=== PATIENT | female | born 1975 | race Caucasian/White ===

== ENCOUNTER 2022-07-03 11:53 | Emergency (ER) | payer OTHER, SELFPAY ==
[2022-07-03] VITALS (11 sets, daily range): BP systolic 111–172; BP diastolic 68–81; PULSE 65–93; RESP 16–18; TEMP 36.8; O2SAT 98–100; BMI 25.1
--- NOTE | 2022-07-03 12:55 | ED.GENADULT ---
HPI - General Adult General Time Seen by Provider: 12:56 Date Seen: 07/03/22 Chief complaint: Abdominal Pain Stated complaint: right sided abdominal pain/fever Time Seen by Provider: 07/03/22 12:39 Source: patient and RN notes reviewed Mode of arrival: ambulatory Limitations: no limitations History of Present Illness HPI narrative: Patient is a 46-year-old female coming in with right lower quadrant abdominal pain starting about 830 this morning. Her appetite was diminished today. She thought maybe she was having discomfort because she had an 8 none had a banana about 10:00 a.m.. Pain is intensified nose worsening. No vomiting but is starting to get nauseated. No bowel changes such as diarrhea or constipation, no urinary changes. She is status post hysterectomy about 20 years ago per report. She reported a fever at home. Again symptoms started this morning. She has had her gallbladder out about 2 years ago and the hysterectomy, otherwise denies any other abdominal surgery. Has not been sick with any cough or cold symptoms. Movement and walking are increasing her pain. Related Data Home Medications Medication Instructions Recorded Confirmed fluticasone furoate 200 inhalation 07/03/22 mcg-vilanterol 25 mcg/dose inhalation powder (Breo Ellipta) prednisone 20 mg tablet mg 07/03/22 trazodone 100 mg tablet mg 07/03/22 Previous Rx's Medication Instructions Recorded ketorolac 10 mg tablet 10 mg PO Q6H PRN pain 5 days #20 07/03/22 tabs tramadol 50 mg tablet 50 mg PO Q6H PRN pain #10 tabs 07/03/22 Allergies Allergy/AdvReac Type Severity Reaction Status Date / Time erythromycin base Allergy Verified 07/03/22 12:23 Review of Systems Status of ROS: Reports: 10 or more systems reviewed and unremarkable except as noted in History and below PFSH PFS Social History Smoking Status: Never smoker Do you use any of these nicotine containing products: None Second hand tobacco smoke exposure: No How often do you have a drink containing alcohol: monthly or less How many standard drinks containing alcohol do you have on a typical day: 1 or 2 How often do you have six or more drinks on one occasion: Never AUDIT-C Alcohol total score: 1 Non-prescribed substance use: denies use service: No Exam Const: Vital Signs, click to edit/add: Vital Signs - 24 hr 07/03/22 12:19 07/03/22 13:24 07/03/22 13:58 Temperature 98.3 F Pulse Rate [Left P ulse Oximeter] 93 72 71 Respiratory Rate 16 18 16 Blood Pressure [Le ft Upper Arm] 172/81 H 140/80 H 130/74 Pulse Oximetry 99 99 98 Oxygen Delivery Me thod Room Air Room Air 07/03/22 13:15 Temperature Pulse Rate [Left P ulse Oximeter] Respiratory Rate Blood Pressure [Le ft Upper Arm] Pulse Oximetry 99 Oxygen Delivery Me thod Documenting provider has reviewed patient's vital signs: yes Common normals: no apparent distress (But looks like she does not feel well), average body habitus, oriented x3, no limitations, healthy appearing, alert and well nourished General appearance: cooperative and well kempt HENMT: Common normals: normocephalic, head/scalp atraumatic and hearing grossly normal bilaterally Head and scalp: normocephalic and atraumatic Eye: Common normals: PERRL, EOMs intact bilaterally, conjunctivae normal and no scleral icterus Conjunctiva: conjunctiva(e) normal Pupil: PERRL Neck & C-Spine: Common normals: full ROM, no lymphadenopathy, supple, no meningeal signs, no JVD and thyroid normal Thyroid: thyroid normal Resp: Common normals: normal respiratory effort, no retractions, no use of accessory muscles and clear to auscultation bilaterally Auscultation: clear to auscultation bilaterally Cardio: Common normals: no JVD, regular rate, regular rhythm, S1 normal heart sound, S2 normal heart sound, no gallops, no clicks and no murmurs Rate: regular rate Rhythm: regular rhythm Heart sounds: S1 normal and S2 normal GI: Common normals: Normal to inspection, nondistended, normoactive bowel sounds present, soft to palpation, no hepatosplenomegaly and no masses Palpation: soft and no hepatosplenomegaly Other: Is definitely tender right mid abdomen to right lower quadrant. I would say that she does not have rebound or guarding at this time but definitely is tender. Extremity: Common normals: normal to inspection, full ROM, normal capillary refill, no joint enlargement, no clubbing, cyanosis or edema, no calf tenderness and no pedal edema Neuro: Common normals: oriented x3 Sensorium/orientation: alert Meningeal signs: no meningeal signs Psych: Appearance: well kempt Course Course Hospital Course: Will establish an IV, start with 15 mg IV Toradol, IV fluids and 4 mg IV Zofran to see if we can give her some comfort from her symptoms. I have asked her to be NPO. Will be getting appropriate labs an abdomen pelvis CT. Certainly appendicitis is in the differential but there are other possible etiologies which will help be delineated between the labs and the imaging. Reevaluation(s) Reevaluation #1: Reviewed with patient her CT is not showing any evidence of any appendicitis. She does have some asymptomatic bilateral inguinal fat containing hernias. This could be followed up outpatient is this is not the cause of her symptoms but she should be aware that she has this. She does have ovarian cysts and probable right hydrosalpinx. We are going to proceed with an ultrasound. She is feeling better with the Toradol on board. Time: 14:34 Reevaluation #2: Reviewed ultrasound findings with patient. Did discuss the findings with Dr. Houston. She agrees with outpatient follow-up and they will order further imaging when appropriate. Patient states the pain is starting to come back. We have discussed sending her baseline with Toradol but also with a script of tramadol if she needs something stronger. Did advise her she can take Tylenol with all of these. She remembers before her hysterectomy she had had a tubal ligation done. Not sure if this could be contributing to what they see as the right hydrosalpinx but I do wonder if it is actually postsurgical finding. Time: 16:45 Vital Signs Vital signs: Initial Vital Signs Temperature 98.3 F 07/03/22 12:19 Temperature Source Temporal Artery Scan 07/03/22 12:19 Pulse Rate 93 07/03/22 12:19 Pulse Rhythm 07/03/22 12:19 Pulse Strength 3+ Normal 07/03/22 12:19 Respiratory Rate 16 07/03/22 12:19 Blood Pressure 172/81 H 07/03/22 12:19 Blood Pressure Mean 111 07/03/22 12:19 Blood Pressure Position Sitting 07/03/22 12:19 Pulse Oximetry 99 07/03/22 12:19 Oxygen Delivery Method 07/03/22 12:19 Vital Signs Temperature 98.3 F 07/03/22 12:19 Pulse Rate 93 07/03/22 12:19 Respiratory Rate 16 07/03/22 12:19 Blood Pressure 172/81 H 07/03/22 12:19 Pulse Oximetry 99 07/03/22 12:19 Oxygen Delivery Method 07/03/22 12:19 Temperature 98.3 F 07/03/22 12:19 Pulse Rate 71 07/03/22 13:58 Respiratory Rate 16 07/03/22 13:58 Blood Pressure 130/74 07/03/22 13:58 Pulse Oximetry 98 07/03/22 13:58 Oxygen Delivery Method 07/03/22 13:24 Medical Decision Making Lab Data Lab results reviewed: Yes I reviewed the patient's lab results Labs: Lab Results 07/03/22 07/03/22 07/03/22 Range/Units 12:59 13:10 13:10 WBC 9.56 (4.50-11.00) K/uL RBC 4.74 (4.00-5.20) m/uL Hgb 14.5 (12.0-16.0) gm/dL Hct 43.6 (33.0-51.0) % MCV 92 (80-100) fL MCH 31 (26-34) pg MCHC 33 (32-36) gm/dL RDW Coeff of [place]ár[place] 11.8 (11.5-15.5) % Plt Count 190 (140-440) K/uL Neut % (Auto) 67.3 (42.0-72.0) % Lymph % (Auto) 24.3 (20-44) % [place] % (Auto) 5.6 (0.0-11.0) % Eos % (Auto) 1.9 (0.0-7.0) % Baso % (Auto) 0.3 (0.0-3.0) % Neut # (Auto) 6.43 (1.7-7.0) K/uL Lymph # (Auto) 2.32 (0.90-2.90) K/uL [place] # (Auto) 0.50 (0.00-0.90) K/UL Eos # (Auto) 0.18 (0.00-0.50) K/uL Baso # (Auto) 0.03 (0.00-0.30) K/uL Abs Immat Gran (auto) 0.06 (0.00-0.30) K/uL Sodium 136 (135-149) mmol/L Potassium 3.7 (3.6-5.1) mmol/L Chloride 102 (96-114) mmol/L Carbon Dioxide 27 (20-32) mmol/L BUN 11 (5-24) mg/dL Creatinine 0.7 (0.5-1.5) mg/dL Estimated Creat Clear 102.38 Estimated GFR 109 ml/min Glucose 89 (60-115) mg/dL Lactate (0.5-1.9) mmol/L Calcium 9.4 (8.4-10.6) mg/dL Total Bilirubin 1.4 (0.1-1.5) mg/dL AST 20 (12-35) U/L ALT 12 (4-35) U/L Alkaline Phosphatase 68 (40-150) U/L C-Reactive Protein 1.0 (0.5-1.0) mg/dL Total Protein 7.5 (6.0-8.3) g/dL Albumin 4.4 (3.3-5.0) g/dL Lipase (23-300) U/L Urine Color Yellow (Yellow) Urine Appearance Clear (Clear) Urine pH 7.0 (5.0-8.5) Ur Specific [place] 1.015 (1.000-1.030) Urine Protein Negative (Negative) Urine Glucose (UA) Negative (Negative) Urine Ketones Negative (Negative) Urine Blood Trace-intact A (Negative) Urine Nitrite Negative (Negative) Urine Bilirubin Negative (Negative) Urine Urobilinogen 0.2 (0.2-1.0) Ur Leukocyte Esterase Negative (Negative) Urine RBC 0-2 (0-2) Urine WBC 0-2 (0-5) Ur Squamous Epith Cells Few (None-Few) Urine Bacteria None (None) SARS-CoV-2 (PCR) (Negative) 07/03/22 07/03/22 07/03/22 Range/Units 13:10 13:10 13:12 WBC (4.50-11.00) K/uL RBC (4.00-5.20) m/uL Hgb (12.0-16.0) gm/dL Hct (33.0-51.0) % MCV (80-100) fL MCH (26-34) pg MCHC (32-36) gm/dL RDW Coeff of [place]ár[place] (11.5-15.5) % Plt Count (140-440) K/uL Neut % (Auto) (42.0-72.0) % Lymph % (Auto) (20-44) % [place] % (Auto) (0.0-11.0) % Eos % (Auto) (0.0-7.0) % Baso % (Auto) (0.0-3.0) % Neut # (Auto) (1.7-7.0) K/uL Lymph # (Auto) (0.90-2.90) K/uL [place] # (Auto) (0.00-0.90) K/UL Eos # (Auto) (0.00-0.50) K/uL Baso # (Auto) (0.00-0.30) K/uL Abs Immat Gran (auto) (0.00-0.30) K/uL Sodium (135-149) mmol/L Potassium (3.6-5.1) mmol/L Chloride (96-114) mmol/L Carbon Dioxide (20-32) mmol/L BUN (5-24) mg/dL Creatinine (0.5-1.5) mg/dL Estimated Creat Clear Estimated GFR ml/min Glucose (60-115) mg/dL Lactate 1.0 (0.5-1.9) mmol/L Calcium (8.4-10.6) mg/dL Total Bilirubin (0.1-1.5) mg/dL AST (12-35) U/L ALT (4-35) U/L Alkaline Phosphatase (40-150) U/L C-Reactive Protein (0.5-1.0) mg/dL Total Protein (6.0-8.3) g/dL Albumin (3.3-5.0) g/dL Lipase 38 (23-300) U/L Urine Color (Yellow) Urine Appearance (Clear) Urine pH (5.0-8.5) Ur Specific [place] (1.000-1.030) Urine Protein (Negative) Urine Glucose (UA) (Negative) Urine Ketones (Negative) Urine Blood (Negative) Urine Nitrite (Negative) Urine Bilirubin (Negative) Urine Urobilinogen (0.2-1.0) Ur Leukocyte Esterase (Negative) Urine RBC (0-2) Urine WBC (0-5) Ur Squamous Epith Cells (None-Few) Urine Bacteria (None) SARS-CoV-2 (PCR) Negative SARS-CoV-2 (Negative) Imaging Data CT scan - abdomen: Attestation: I have reviewed the pertinent imaging results. Radiologist's impression: Patient: CHRISTOPHER TY Facility:?[facility] Patient ID:?[id number] Site Patient ID:?[id number]. Site :?[id number] Study:?CT Abdomen/Pelvis 80CC ISOVUE 370-07/03/2022 1:58:35 PM Ordering Physician:?Florencio Rico Final Report: INDICATION: Right lower quadrant pain. TECHNIQUE: CT abdomen and pelvis acquired with 80 mL Isovue 370 IV contrast. Coronal and sagittal reformats were generated. COMPARISON: CT of the abdomen and pelvis from 11/01/2020. FINDINGS: Lower chest: Areas of geographic lucency in the right lower lobe is stable from prior, and likely related to chronic change. Liver: Unremarkable. Gallbladder and bile ducts: Surgically absent gallbladder. Normal caliber bile ducts. Spleen: Unremarkable. Pancreas: Unremarkable. Adrenal glands: Unremarkable. No nodules. Kidneys and Ureters: Unremarkable. No suspicious masses, stones, or hydronephrosis. Cortical hypodensity in the right kidney is suggestive of a cyst. Lymph Nodes and Retroperitoneum: Unremarkable. Vasculature: Unremarkable. GI tract: Unremarkable. Normal in caliber. Large volume of colonic stool can be seen with constipation. The appendix is not seen, but there are no inflammatory changes in the right lower quadrant to suggest appendicitis. Peritoneum/Abdominal Wall: Unremarkable. No mass or infiltration. No free air or free fluid. Fat containing inguinal hernias bilaterally. Pelvic Viscera: Surgically absent uterus. Multiple bilateral adnexal cystic lesions are likely ovarian. Ovoid tubular structure in the right adnexum is suggestive of hydrosalpinx, increased from prior. Bladder: Unremarkable. Bones: Unremarkable for age. IMPRESSION: 1. New bilateral ovarian cystic lesions, likely dominant follicles or cysts. 2. Enlarging tubular fluid density structure in the right adnexum, likely hydrosalpinx. This could be the source of right lower quadrant pain and would be best evaluated with pelvic ultrasound. 3. No other significant CT abnormalities in the abdomen or pelvis. Please note that all CT scans at this facility use dose modulation, iterative reconstruction, and/or weight-based dosing when appropriate to reduce radiation dose to as low as reasonably achievable. Dictated by Matias Gray MD @ 07/03/2022 2:08:43 PM (Electronic Signature) US - abdomen: Attestation: I have reviewed the pertinent imaging results. Radiologist's impression: Patient: CHRISTOPHER TY Facility:?[facility] Patient ID:?[id number] Site Patient ID:?[id number]. Site :?[id number] Study:?US Pelvis TA/TV-07/03/2022 3:24:04 PM Ordering Physician:?Florencio Rico Final Report: INDICATION: Ovarian cystic masses. Abnormal CT exam. TECHNIQUE: Ultrasound pelvis transabdominal and transvaginal for better assessment or to better visualize the endometrium. Real-time sonographic images with spectral and color Doppler imaging of the ovaries were obtained. COMPARISON: CT abdomen pelvis July 03, 2022. FINDINGS: Post hysterectomy. Right ovary 4 x 3 x 3. Left ovary 4 x 3 x 3. Complex cystic lesions are present in both ovaries. Each ovary contains a 2.5 cm debris-filled cyst. Hydrosalpinx suspected in the right adnexa. Normal arterial and venous blood flow is demonstrated in both ovaries. Cul-de-sac: No significant free fluid. IMPRESSION: Bilateral ovarian 2.5 cm hemorrhagic cysts or endometriomas favored over neoplasms. Right adnexal hydrosalpinx also suggested. No convincing evidence for pelvic inflammatory disease. Gynecology consultation is recommended for management of these findings. From an imaging standpoint, these lesions could be further evaluated with a repeat ultrasound in 6-12 weeks or MRI. Dictated by Herman Desir MD @ 07/03/2022 3:46:49 PM (Electronic Signature) Critical Care Time Critical Care Time Critical Care Time: No Discharge Plan Discharge Clinical Impression: Hydrosalpinx, Hemorrhagic cysts of both ovaries Condition: Stable Instructions: Ovarian Cyst (ED) Additional Instructions: Take Tylenol baseline for pain, follow bottle directions for dosing. Have written for Toradol to be used next in pain management, follow-up prescription. If pain is severe, can use the tramadol as prescribed. No driving or operating machinery while on this. [facility] get [facility]. She did develop severe abdominal pain not controlled with the outlined medicines, have fever vomiting with this, do need to be re-evaluated. Activity Level: Activity as Tolerated Prescriptions: New ketorolac 10 mg tablet 10 mg PO Q6H PRN (Reason: pain) 5 Days Qty: 20 0RF tramadol 50 mg tablet 50 mg PO Q6H PRN (Reason: pain) Qty: 10 0RF No Action prednisone 20 mg tablet trazodone 100 mg tablet fluticasone furoate-vilanterol [Breo Ellipta] 200-25 mcg/dose blister with device INHALATION Label Comments: INHALE 1 PUFF BY MOUTH EVERY DAY Follow Up/Referrals: Keira Irvin MD [Primary Care Provider] - Stand Alone Forms: [facility] Imaging Info Instructions
--- NOTE | 2022-07-03 12:58 | CRLHL7_ITS ---
For Patients: As a result of the Century Cures Act, medical imaging exams and procedure reports are released immediately into your electronic medical record. You may view this report before your referring provider. If you have questions, please contact your health care provider. INDICATION: Right lower quadrant pain. TECHNIQUE: CT abdomen and pelvis acquired with 80 mL Isovue 370 IV contrast. Coronal and sagittal reformats were generated. COMPARISON: CT of the abdomen and pelvis from 11/01/2020. FINDINGS: Lower chest: Areas of geographic lucency in the right lower lobe is stable from prior, and likely related to chronic change. Liver: Unremarkable. Gallbladder and bile ducts: Surgically absent gallbladder. Normal caliber bile ducts. Spleen: Unremarkable. Pancreas: Unremarkable. Adrenal glands: Unremarkable. No nodules. Kidneys and Ureters: Unremarkable. No suspicious masses, stones, or hydronephrosis. Cortical hypodensity in the right kidney is suggestive of a cyst. Lymph Nodes and Retroperitoneum: Unremarkable. Vasculature: Unremarkable. GI tract: Unremarkable. Normal in caliber. Large volume of colonic stool can be seen with constipation. The appendix is not seen, but there are no inflammatory changes in the right lower quadrant to suggest appendicitis. Peritoneum/Abdominal Wall: Unremarkable. No mass or infiltration. No free air or free fluid. Fat containing inguinal hernias bilaterally. Pelvic Viscera: Surgically absent uterus. Multiple bilateral adnexal cystic lesions are likely ovarian. Ovoid tubular structure in the right adnexum is suggestive of hydrosalpinx, increased from prior. Bladder: Unremarkable. Bones: Unremarkable for age. IMPRESSION: 1. New bilateral ovarian cystic lesions, likely dominant follicles or cysts. 2. Enlarging tubular fluid density structure in the right adnexum, likely hydrosalpinx. This could be the source of right lower quadrant pain and would be best evaluated with pelvic ultrasound. 3. No other significant CT abnormalities in the abdomen or pelvis. Please note that all CT scans at this facility use dose modulation, iterative reconstruction, and/or weight-based dosing when appropriate to reduce radiation dose to as low as reasonably achievable. Dictated by Matias Gray MD @ 07/03/2022 2:08:43 PM (Electronically Signed)
[2022-07-03 13:28] LABS: Basophils Absolute Auto 0.03 K/uL (0.00-0.30); Basophils Percent Auto 0.3 % (0.0-3.0); Eosinophils Absolute Auto 0.18 K/uL (0.00-0.50); Eosinophils Percent Auto 1.9 % (0.0-7.0); Hematocrit 43.6 % (33.0-51.0); Hemoglobin* 14.5 gm/dL (12.0-16.0); Immature Granulocytes Abs Auto 0.06 K/uL (0.00-0.30); Lymphocytes Absolute Auto 2.32 K/uL (0.90-2.90); Lymphocytes Percent Auto 24.3 % (20-44); Mean Corpuscular HGB Conc 33 gm/dL (32-36); Mean Corpuscular Hemoglobin 31 pg (26-34); Mean Corpuscular Volume 92 fL (80-100); Monocytes Percent Auto 5.6 % (0.0-11.0); Neutrophils Absolute Auto 6.43 K/uL (1.7-7.0); Neutrophils Percent Auto 67.3 % (42.0-72.0); Platelet Count* 190 K/uL (140-440); RDW Coefficient of Variation % 11.8 % (11.5-15.5); Red Blood Count 4.74 m/uL (4.00-5.20); White Blood Count* 9.56 K/uL (4.50-11.00)
[2022-07-03] MEDS: ONDANSETRON 2 MG/ML inj 4 MG IVP (13:29)
[2022-07-03] MEDS: 0.9 % SODIUM CHLORIDE 1000 ml 1,000 ML 500 ML IV (13:29)
[2022-07-03] MEDS: KETOROLAC 15 MG/ML inj IVP (13:29)
[2022-07-03 13:31] LABS: Appearance Urine Clear (Clear); Bilirubin Urine Negative (Negative); Blood Urine Trace-intact (Negative); Color Urine Yellow (Yellow); Glucose Urine Negative (Negative); Ketones Urine Negative (Negative); Leukocyte Esterase Urine Negative (Negative); Nitrite Urine Negative (Negative); Protein Urine Negative (Negative); Specific Gravity Urine 1.015 (1.000-1.030); Urobilinogen Urine 0.2 (0.2-1.0)
[2022-07-03 13:38] LABS: Slide Review Reflex No
--- NOTE | 2022-07-03 13:41 | ED.NURSE ---
Pt to imaging.
[2022-07-03 13:43] LABS: RBC Urine 0-2 (0-2); Squamous Epithelial Cell Urine Few (None-Few); WBC Urine 0-2 (0-5)
[2022-07-03 13:49] LABS: Lipase* 38 U/L (23-300)
[2022-07-03 14:16] LABS: SARS PCR* Negative SARS-CoV-2 (Negative)
--- NOTE | 2022-07-03 14:27 | CRLHL7_ITS ---
For Patients: As a result of the Century Cures Act, medical imaging exams and procedure reports are released immediately into your electronic medical record. You may view this report before your referring provider. If you have questions, please contact your health care provider. INDICATION: Ovarian cystic masses. Abnormal CT exam. TECHNIQUE: Ultrasound pelvis transabdominal and transvaginal for better assessment or to better visualize the endometrium. Real-time sonographic images with spectral and color Doppler imaging of the ovaries were obtained. COMPARISON: CT abdomen pelvis July 03, 2022. FINDINGS: Post hysterectomy. Right ovary 4 x 3 x 3. Left ovary 4 x 3 x 3. Complex cystic lesions are present in both ovaries. Each ovary contains a 2.5 cm debris-filled cyst. Hydrosalpinx suspected in the right adnexa. Normal arterial and venous blood flow is demonstrated in both ovaries. Cul-de-sac: No significant free fluid. IMPRESSION: Bilateral ovarian 2.5 cm hemorrhagic cysts or endometriomas favored over neoplasms. Right adnexal hydrosalpinx also suggested. No convincing evidence for pelvic inflammatory disease. Gynecology consultation is recommended for management of these findings. From an imaging standpoint, these lesions could be further evaluated with a repeat ultrasound in 6-12 weeks or MRI. Dictated by Herman Desir MD @ 07/03/2022 3:46:49 PM (Electronically Signed)
[2022-07-03 14:44] LABS: Albumin* 4.4 g/dL (3.3-5.0); Aspartate Amino Transferase* 20 U/L (12-35); Bilirubin Total* 1.4 mg/dL (0.1-1.5); Blood Urea Nitrogen* 11 mg/dL (5-24); Calcium* 9.4 mg/dL (8.4-10.6); Carbon Dioxide* 27 mmol/L (20-32); Chloride* 102 mmol/L (96-114); Creatinine* 0.7 mg/dL (0.5-1.5); Est. Creatinine Clearance* 102.38; Estimated Glomerular Filt Rate 109 ml/min; Glucose* 89 mg/dL (60-115); Potassium* 3.7 mmol/L (3.6-5.1); Sodium* 136 mmol/L (135-149); Total Protein* 7.5 g/dL (6.0-8.3)
[2022-07-03 14:45] LABS: Alanine Aminotransferase* 12 U/L (4-35); Alkaline Phosphatase* 68 U/L (40-150)
== END 2022-07-03 17:15 | disposition home or self-care (01) ==
PROVIDERS: Emergency Provider Family Medicine; PCP Family Medicine
DX: N70.11 Chronic salpingitis (principal); N83.291 Other ovarian cyst, right side
CPT/HCPCS: 36415; 74177; 76830; 76856; 80053; 81001; 83605; 83690; 85025; 86140; 87635; 93976; 94761; 96374; 96375; 99284; 99285; J1885; J2405; J7030; Q9967

== ENCOUNTER 2022-08-23 06:16 | Day surgery (SDC) | payer OTHER, SELFPAY ==
[2022-08-23] VITALS (28 sets, daily range): BP systolic 109–145; BP diastolic 50–76; PULSE 61–103; RESP 16–20; TEMP 36.1–37; O2SAT 80–100; BMI 24.6
[2022-08-23] MEDS: SCOPOLAMINE 1 MG/3 DAY PATCH 1 PATCH TRANSDERMA (07:00)
[2022-08-23 07:10] LABS: Ur HCG Qualitative* Negative (Negative)
[2022-08-23] MEDS: SODIUM CHLORIDE 0.9 % (FLUSH) 10 ML SYRINGE IVF (07:10)
[2022-08-23] MEDS: LACTATED RINGERS 1000 ML 1,000 ML 100 ML IV ×2 (07:10→09:20)
--- NOTE | 2022-08-23 07:14 | SUR.PREOP ---
Negative home antigen test done- 08/23/22
[2022-08-23] MEDS: BUPIVACAINE 0.25% 30 ML INJECTION (08:16)
--- NOTE | 2022-08-23 09:02 | W.ANESCHARGE ---
Anesthesia Charges Start Date/Time Anesthesia Start Date: 08/23/22 Anesthesia Start Time: 07:37 Stop Date/Time Anesthesia Stop Date: 08/23/22 Anesthesia Stop Time: 09:01 Summary Emergency: No
[2022-08-23] MEDS: fentaNYL 100 MCG/2 ML inj 50 MCG IVP (09:10)
--- NOTE | 2022-08-23 09:29 | W.PM.GYNPROC ---
Procedure Note Date Seen: 08/23/22 Procedure Details: PREOPERATIVE DIAGNOSIS: Pelvic pain Ovarian cyst Suspected hydrosalpinx POSTOPERATIVE DIAGNOSIS: Left ovarian cyst Right hydrosalpinx Pelvic adhesion PROCEDURE: Laparoscopic left salpingo-oophorectomy, right salpingectomy SURGEON: Milli Houston MD ASSISTANT MANAGER TRAINEE: Ernestina Naranjo MD ANESTHESIA: General IV FLUIDS: 1000 mL crystalloid URINE OUTPUT: 100 mL EBL: 5 mL FINDINGS: 1. Upon pelvic exam under anesthesia, the vagina was normal in appearance. Uterus was surgically absent. There were no palpable adnexal masses. 2. Upon laparoscopy, survey of the upper abdomen revealed a slightly scarred appearance to the right liver. There was a normal appearance to the inferior edge gallbladder and stomach. Bowels were grossly normal appearance. Appendix was normal in appearance but the tip was adherent to the right hydrosalpinx. The right ovary was normal in appearance, but the right tube was markedly dilated and distorted, with multiple loculations of fluid, adherent to the pelvic sidewall and the remnants of the right round ligament. The left ovary exhibited a simple cyst approximately 3 cm in greatest dimension, which was found to contain clear fluid. The left tube was normal in appearance. There was a small omental adhesion to the left anterior pelvic wall. Uterus was surgically absent. The cul-de-sac and bladder reflection were normal in appearance. COMPLICATIONS: None PROCEDURE IN DETAIL: Patient was taken to the operating room with IV running. She was positioned in dorsal lithotomy position with her legs fully supported in Yellofin stirrups. General anesthesia was administered. She was prepped and draped in the usual sterile fashion. Bimanual exam was performed for the above-noted findings. Sponge stick was placed in patient's vagina. Pantoja catheter was placed. Patient's legs were placed in neutral position. Attention was turned to patient's abdomen. The infraumbilical area was infiltrated with small amount of Marcaine. An infraumbilical incision was made with a scalpel and carried through to the underlying layer of fascia with a hemostat. The 5 mm Fios Kii trocar was assembled with laparoscope within, and insufflator attached. While tenting up the abdomen manually, the trocar was passed through the anterior abdominal wall into the peritoneal cavity. Trocar was removed. Pneumoperitoneum was achieved. Survey of abdomen and pelvis revealed the above-noted findings. Three additional port sites were created. The 1st was in the patient's left lower quadrant, just superior medial to the left ASIS. The 2nd was a hand's breath superior to and slightly medial to the 1st. The 3rd was in the patient's right lower quadrant, just superior medial to the right ASIS. Each was infiltrated with small amount of Marcaine prior to incision. A 5 mm incision was made at each site, making sure the large vessels were out of harm's way. A 5 mm Fios Kii port was inserted at each site, under direct visualization and without complication. The balloon on each of the 4 ports was inflated, holding each in place. Later in the procedure, the 5 mm port in the left lower quadrant was replaced with an 11 mm port, given the need to use an Endo-Catch bag for the specimens. The dilated and distorted right fallopian tube was held away from the pelvic sidewall. The periappendiceal fat was adherent to the right hydrosalpinx. This fat was dissected away from the tube sharply. Hemostasis was noted. The right fallopian tube was then divided from the adjacent normal right ovary with Thunderbeat device. Dissection was carried medially to laterally, the tube from adhesions to the pelvic sidewall, and ultimately freeing the specimen with the Thunderbeat. This was placed in the pelvis for later retrieval. Hemostasis was noted. Attention was then turned to the left tube and ovary. The ovary was held away from the left pelvic sidewall, and the infundibulopelvic ligament was cauterized and transected with the Thunderbeat device. Dissection was carried laterally to medially, through adhesions connecting the ovary and tube to the pelvic sidewall, until the remnant of the round ligament was reached. The specimen was freed from the pelvic sidewall with a Thunderbeat and was placed in the pelvis for later retrieval. An Endo-Catch bag was inserted through the left lower quadrant port site. The bag was deployed and specimens were placed within the bag. Bag was cinched and brought up to the anterior abdominal wall. The 11 mm port was removed. The bag was brought through the anterior abdominal wall, during which time the left ovarian cyst ruptured, spilling clear fluid. Ilya-Kaveh device was used to close the fascia at the left lower quadrant port site with a single stitch of 0 Vicryl. All instruments were removed from the ports. The balloons on the remaining port sites were deflated, and pneumoperitoneum was released. The ports were removed. The subcuticular tissues of the port sites were treated with Bovie electric cautery were bleeding vessels were noted. The skin of each port site was closed with a subcuticular stitch of 4-0 Vicryl. Surgical glue was applied above this. Sponge stick was removed from the patient's vagina, and a Pantoja catheter was removed as well. Patient tolerated procedure well and was taken to recovery area in stable condition
[2022-08-23] MEDS: OXYCODONE 5 MG TABLET PO (10:09)
--- NOTE | 2022-08-23 10:13 | W.ANESCHARGE ---
Anesthesia Charges Start Date/Time Anesthesia Start Date: 08/23/22 Anesthesia Start Time: 07:37 Stop Date/Time Anesthesia Stop Date: 08/23/22 Anesthesia Stop Time: 09:01 Summary Emergency: No
[2022-08-23] MEDS: ACETAMINOPHEN 500 MG TABLET 1000 MG PO (10:39)
[2022-08-23] MEDS: hydrOXYzine pamoate 25 MG CAPSULE PO (11:59)
== END 2022-08-23 12:04 | disposition home or self-care (01) ==
PROVIDERS: Anesthesiology; PCP Family Medicine; Visit Provider Obstetrics & Gynecology
PROC: (CPT 58661; principal; 2022-08-23 07:30)
DX: R10.2 Pelvic and perineal pain (principal); N83.292 Other ovarian cyst, left side; N70.11 Chronic salpingitis; N73.6 Female pelvic peritoneal adhesions (postinfective)
CPT/HCPCS: 58661; 00840; 00851; 36415; 81025; 86850; 86900; 86901; 88305; A9270; J0330; J1100; J1885; J2250; J2405; J2704; J2710; J3010; J3490; J7120

== ENCOUNTER 2022-08-29 10:30 | Emergency (ER) | payer OTHER, SELFPAY ==
[2022-08-29 10:33] VITALS: BP 156/70; PULSE 77; RESP 16; TEMP 36.2; O2SAT 98; BMI 25.1
--- NOTE | 2022-08-29 10:56 | CRLHL7_ITS ---
For Patients: As a result of the Century Cures Act, medical imaging exams and procedure reports are released immediately into your electronic medical record. You may view this report before your referring provider. If you have questions, please contact your health care provider. INDICATION: LT LEG PAIN AND SWELLING COMPARISON: None. TECHNIQUE: A compression venous ultrasound exam was performed of the left lower extremity using pollack-scale imaging, color Doppler and spectral Doppler analysis. FINDINGS: Sonographic imaging of the left lower extremity demonstrates normal compressibility and color Doppler venous blood flow within the common femoral vein, deep femoral vein, and the proximal greater saphenous vein. Within the thigh, the femoral vein is patent and compressible. At a lower level, the popliteal and posterior tibial veins also show normal compressibility and color Doppler venous blood flow. Limited imaging of the contralateral groin demonstrates a normal spectral waveform and color Doppler venous blood flow within the right common femoral vein. IMPRESSION: Normal venous ultrasound exam. No evidence of deep vein thrombosis within the left lower extremity. Dictated by Dillan Rocha MD @ 08/29/2022 11:55:26 AM (Electronically Signed)
--- NOTE | 2022-08-29 10:57 | ED_ITS ---
HPI - General Adult General Time Seen by Provider: 10:57 Date Seen: 08/29/22 Chief complaint: Extremity Pain/Injury, Lower Stated complaint: Post op left leg pain Time Seen by Provider: 08/29/22 10:32 Source: patient Mode of arrival: ambulatory Limitations: no limitations History of Present Illness HPI narrative: Patient is a 46 white female that had surgery 6 days ago she had a laparoscopic surgery obstetric and would last couple of days has had some left groin pain radiating down into her leg she feels like her leg is a little bit swollen she had 2 ports on the left side of her abdomen she reports a little bit of flank discomfort as well on the left. No fevers, no dysuria. Patient's medical history is reviewed, her chart is reviewed, her surgical note is reviewed Related Data Home Medications Medication Instructions Recorded Confirmed fluticasone furoate 200 1 inh inhalation Q24H 07/03/22 08/29/22 mcg-vilanterol 25 mcg/dose inhalation powder (Breo Ellipta) albuterol sulfate 90 mcg/actuation 2 puff inhalation Q6H PRN 08/01/22 08/29/22 aerosol inhaler dextroamphetamine-amphetamine ER 10 mg PO BID 08/01/22 08/29/22 10 mg 24hr capsule,extend release magnesium 250 mg tablet 250 mg PO QDAY 08/02/22 08/29/22 trazodone 100 mg tablet 100 mg PO QDAY sleep 08/02/22 08/29/22 Previous Rx's Medication Instructions Recorded ketorolac 10 mg tablet 10 mg PO Q6H PRN pain 5 days #20 07/03/22 tabs tramadol 50 mg tablet 50 mg PO Q6H PRN pain #10 tabs 07/03/22 acetaminophen 500 mg tablet 1,000 mg PO Q6H PRN Pain #0 tabs 08/23/22 oxycodone 5 mg tablet 5 mg PO Q4H PRN 4 OR GREATER ON 08/23/22 PAIN SCALE 14 days #20 tabs Allergies Allergy/AdvReac Type Severity Reaction Status Date / Time bupropion Allergy Intermediate Diarrhea Verified 08/29/22 10:39 codeine Allergy Intermediate epigastric Verified 08/29/22 10:39 pain erythromycin base Allergy Intermediate stomach Verified 08/29/22 10:39 upset, diarrhea PFSH PFSH Medical History Anxiety and depression Asthma Lizy-Danlos syndrome Fibromyalgia H/O bronchopulmonary dysplasia History of blood transfusion (1994) History of vitamin D deficiency Mild persistent asthma Simple renal cyst (10/2020) Stage 1 chronic kidney disease (11/16/20) Surgical History H/O tubal ligation History of catheter-based closure of atrial septal defect (06/2006) History of hysterectomy for benign disease (2005) History of laparoscopic cholecystectomy (09/29/20) History of medial meniscus repair of left knee (08/04/13) S/P dilation and curettage (1994) Status post excision of lipoma (2011) Family History Maternal Grandmother Stroke Paternal Grandfather Diabetes Daughter Depression Social History Narrative: She recently moved to [place]. 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 She has a college education She exercises 5 days a week with walking in treadmill 2M She does not smoke She does not drink alcohol or use recreational drugs Smoking Status: Never smoker Do you use any of these nicotine containing products: None Second hand tobacco smoke exposure: No How often do you have a drink containing alcohol: monthly or less How many standard drinks containing alcohol do you have on a typical day: 1 or 2 How often do you have six or more drinks on one occasion: Never AUDIT-C Alcohol total score: 1 Non-prescribed substance use: denies use Caffeine: Yes (coffee 1 cup/day) Little interest or pleasure in doing things: not at all Feeling down, depressed, or hopeless: not at all Are you using contraception or practicing any form of control: Yes (hysterectomy) service: No Exam Const: Vital Signs, click to edit/add: Vital Signs - 24 hr 08/29/22 10:33 Temperature 97.1 F L Pulse Rate [Right Pulse Oximeter] 77 Respiratory Rate 16 Blood Pressure [Ri ght Upper Arm] 156/70 H Pulse Oximetry 98 Oxygen Delivery Me thod Room Air Course Vital Signs Vital signs: Initial Vital Signs Temperature 97.1 F L 08/29/22 10:33 Temperature Source Temporal Artery Scan 08/29/22 10:33 Pulse Rate 77 08/29/22 10:33 Respiratory Rate 16 08/29/22 10:33 Blood Pressure 156/70 H 08/29/22 10:33 Blood Pressure Mean 98 08/29/22 10:33 Blood Pressure Position Sitting 08/29/22 10:33 Pulse Oximetry 98 08/29/22 10:33 Oxygen Delivery Method 08/29/22 10:33 Vital Signs Temperature 97.1 F L 08/29/22 10:33 Pulse Rate 77 08/29/22 10:33 Respiratory Rate 16 08/29/22 10:33 Blood Pressure 156/70 H 08/29/22 10:33 Pulse Oximetry 98 08/29/22 10:33 Oxygen Delivery Method 08/29/22 10:33 Temperature 97.1 F L 08/29/22 10:33 Pulse Rate 77 08/29/22 10:33 Respiratory Rate 16 08/29/22 10:33 Blood Pressure 156/70 H 08/29/22 10:33 Pulse Oximetry 98 08/29/22 10:33 Oxygen Delivery Method 08/29/22 10:33 Medical Decision Making Lab Data Labs: Lab Results 08/29/22 08/29/22 08/29/22 Range/Units 11:15 11:15 11:20 WBC 8.65 (4.50-11.00) K/uL RBC 4.41 (4.00-5.20) m/uL Hgb 13.6 (12.0-16.0) gm/dL Hct 41.0 (33.0-51.0) % MCV 93 (80-100) fL MCH 31 (26-34) pg MCHC 33 (32-36) gm/dL RDW Coeff of [place]ár[place] 12.2 (11.5-15.5) % Plt Count 202 (140-440) K/uL Neut % (Auto) 64.4 (42.0-72.0) % Lymph % (Auto) 22.7 (20-44) % [place] % (Auto) 5.0 (0.0-11.0) % Eos % (Auto) 7.3 H (0.0-7.0) % Baso % (Auto) 0.5 (0.0-3.0) % Neut # (Auto) 5.58 (1.7-7.0) K/uL Lymph # (Auto) 1.96 (0.90-2.90) K/uL [place] # (Auto) 0.40 (0.00-0.90) K/UL Eos # (Auto) 0.60 H (0.00-0.50) K/uL Baso # (Auto) 0.04 (0.00-0.30) K/uL Abs Immat Gran (auto) 0.01 (0.00-0.30) K/uL Imm/Tot Granulo (auto) 0.1 % Sodium 138 (135-149) mmol/L Potassium 4.7 (3.6-5.1) mmol/L Chloride 104 (96-114) mmol/L Carbon Dioxide 29 (20-32) mmol/L BUN 23 (5-24) mg/dL Creatinine 0.9 (0.5-1.5) mg/dL Estimated Creat Clear 79.63 Estimated GFR 80 ml/min Glucose 94 (60-115) mg/dL Calcium 9.1 (8.4-10.6) mg/dL Urine Color Yellow (Yellow) Urine Appearance Clear (Clear) Urine pH 7.0 (5.0-8.5) Ur Specific [place] 1.015 (1.000-1.030) Urine Protein Negative (Negative) Urine Glucose (UA) Negative (Negative) Urine Ketones Negative (Negative) Urine Blood Trace-lysed A (Negative) Urine Nitrite Negative (Negative) Urine Bilirubin Negative (Negative) Urine Urobilinogen 0.2 (0.2-1.0) Ur Leukocyte Esterase Negative (Negative) Urine RBC 0-2 (0-2) Urine WBC 0-2 (0-5) Ur Squamous Epith Cells Few (None-Few) Urine Bacteria Few A (None) Discharge Plan Discharge Clinical Impression: Acute leg pain Patient Disposition: Home, Self-Care Condition: Stable Additional Instructions: Light activity, elevate leg above the level of her heart as much as possible, meds at home, update it architecture consultant as needed, return to ED as needed. Prescriptions: No Action dextroamphetamine-amphetamine 10 mg capsule,extended release 24hr 10 mg PO BID Label Comments: 6 months ago, takes as needed albuterol sulfate 90 mcg/actuation HFA aerosol inhaler 2 puff inhalation Q6H PRN magnesium 250 mg tablet 250 mg PO QDAY acetaminophen 500 mg Tablet 1,000 mg PO Q6H PRN (Reason: Pain) Qty: 0 0RF oxycodone 5 mg Tablet 5 mg PO Q4H PRN (Reason: 4 OR GREATER ON PAIN SCALE) 14 Days Qty: 20 0RF fluticasone furoate-vilanterol [Breo Ellipta] 200-25 mcg/dose blister with device 1 inh INHALATION Q24H Label Comments: INHALE 1 PUFF BY MOUTH EVERY DAY ketorolac 10 mg tablet 10 mg PO Q6H PRN (Reason: pain) 5 Days Qty: 20 0RF Label Comments: at least 2 weeks tramadol 50 mg tablet 50 mg PO Q6H PRN (Reason: pain) Qty: 10 0RF Label Comments: 2 weeks ago trazodone 100 mg tablet 100 mg PO QDAY Follow Up/Referrals: Keira Irvin MD [Primary Care Provider] - Stand Alone Forms: [facility] Info Instructions
--- NOTE | 2022-08-29 11:02 | ED.GENADULT ---
HPI - General Adult General Time Seen by Provider: 11:03 Date Seen: 08/29/22 Chief complaint: Extremity Pain/Injury, Lower Stated complaint: Post op left leg pain Time Seen by Provider: 08/29/22 10:32 Source: patient Mode of arrival: ambulatory Limitations: no limitations History of Present Illness HPI narrative: Patient is a 46 white female who is 6 days status post laparoscopic obstetric procedure. She has had some intermittent abdominal pain, complains of some left flank pain but her main complaint is left groin and left leg, the patient noticed that maybe her calf is a little more swollen when she tried to put her pants on. She had 2 ports on that side of the abdomen. No fevers, chills, chest pain, shortness of breath. She called the clinic and they asked her to come to the ER. She has had no dysuria frequency, no history of bleeding or clotting problems Past medical history significant for anxiety depression asthma Lizy-Danlos chronic pelvic pain hemorrhoids, and recent laparoscopic surgery Related Data Home Medications Medication Instructions Recorded Confirmed fluticasone furoate 200 1 inh inhalation Q24H 07/03/22 08/29/22 mcg-vilanterol 25 mcg/dose inhalation powder (Breo Ellipta) albuterol sulfate 90 mcg/actuation 2 puff inhalation Q6H PRN 08/01/22 08/29/22 aerosol inhaler dextroamphetamine-amphetamine ER 10 mg PO BID 08/01/22 08/29/22 10 mg 24hr capsule,extend release magnesium 250 mg tablet 250 mg PO QDAY 08/02/22 08/29/22 trazodone 100 mg tablet 100 mg PO QDAY sleep 08/02/22 08/29/22 Previous Rx's Medication Instructions Recorded ketorolac 10 mg tablet 10 mg PO Q6H PRN pain 5 days #20 07/03/22 tabs tramadol 50 mg tablet 50 mg PO Q6H PRN pain #10 tabs 07/03/22 acetaminophen 500 mg tablet 1,000 mg PO Q6H PRN Pain #0 tabs 08/23/22 oxycodone 5 mg tablet 5 mg PO Q4H PRN 4 OR GREATER ON 08/23/22 PAIN SCALE 14 days #20 tabs Allergies Allergy/AdvReac Type Severity Reaction Status Date / Time bupropion Allergy Intermediate Diarrhea Verified 08/29/22 10:39 codeine Allergy Intermediate epigastric Verified 08/29/22 10:39 pain erythromycin base Allergy Intermediate stomach Verified 08/29/22 10:39 upset, diarrhea Review of Systems Status of ROS: Reports: 6 or more systems reviewed and unremarkable except as noted in History and below [facility] Medical History Anxiety and depression Asthma Lizy-Danlos syndrome Fibromyalgia H/O bronchopulmonary dysplasia History of blood transfusion (1994) History of vitamin D deficiency Mild persistent asthma Simple renal cyst (10/2020) Stage 1 chronic kidney disease (11/16/20) Surgical History H/O tubal ligation History of catheter-based closure of atrial septal defect (06/2006) History of hysterectomy for benign disease (2005) History of laparoscopic cholecystectomy (09/29/20) History of medial meniscus repair of left knee (08/04/13) S/P dilation and curettage (1994) Status post excision of lipoma (2011) Family History Maternal Grandmother Stroke Paternal Grandfather Diabetes Daughter Depression Social History Narrative: She recently moved to [place]. 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 She has a college education She exercises 5 days a week with walking in treadmill 2M She does not smoke She does not drink alcohol or use recreational drugs Smoking Status: Never smoker Do you use any of these nicotine containing products: None Second hand tobacco smoke exposure: No How often do you have a drink containing alcohol: monthly or less How many standard drinks containing alcohol do you have on a typical day: 1 or 2 How often do you have six or more drinks on one occasion: Never AUDIT-C Alcohol total score: 1 Non-prescribed substance use: denies use Caffeine: Yes (coffee 1 cup/day) Little interest or pleasure in doing things: not at all Feeling down, depressed, or hopeless: not at all Are you using contraception or practicing any form of control: Yes (hysterectomy) service: No Exam Narrative: Exam Narrative: Objective: In general patient apparent distress Vital signs are unremarkable slightly elevated systolic pressure Alert orient x3 Abdomen benign soft ports appear to be healing Negative CVA tenderness although mildly tender in her posterior ribcage on the left, no rebound in the abdomen, no masses Left lower extremity shows negative Homans sign, no palpable venous cords, no marked swelling, no cellulitic changes. She has got full range of motion of her left hip to internal external rotation flexion extension. Const: Vital Signs, click to edit/add: Vital Signs - 24 hr 08/29/22 10:33 Temperature 97.1 F L Pulse Rate [Right Pulse Oximeter] 77 Respiratory Rate 16 Blood Pressure [Ri ght Upper Arm] 156/70 H Pulse Oximetry 98 Oxygen Delivery Me thod Room Air Course Vital Signs Vital signs: Initial Vital Signs Temperature 97.1 F L 08/29/22 10:33 Temperature Source Temporal Artery Scan 08/29/22 10:33 Pulse Rate 77 08/29/22 10:33 Respiratory Rate 16 08/29/22 10:33 Blood Pressure 156/70 H 08/29/22 10:33 Blood Pressure Mean 98 08/29/22 10:33 Blood Pressure Position Sitting 08/29/22 10:33 Pulse Oximetry 98 08/29/22 10:33 Oxygen Delivery Method 08/29/22 10:33 Vital Signs Temperature 97.1 F L 08/29/22 10:33 Pulse Rate 77 08/29/22 10:33 Respiratory Rate 16 08/29/22 10:33 Blood Pressure 156/70 H 08/29/22 10:33 Pulse Oximetry 98 08/29/22 10:33 Oxygen Delivery Method 08/29/22 10:33 Temperature 97.1 F L 08/29/22 10:33 Pulse Rate 77 08/29/22 10:33 Respiratory Rate 16 08/29/22 10:33 Blood Pressure 156/70 H 08/29/22 10:33 Pulse Oximetry 98 08/29/22 10:33 Oxygen Delivery Method 08/29/22 10:33 Medical Decision Making MDM Narrative Medical decision making narrative: Patient is 6 days status post laparoscopic surgery, needs rule out DVT on the left lower extremity. Will check laboratory studies, ultrasound of left lower extremity. She declines any pain medication at this time. Will also check lab studies and a urinalysis. She has had some intermittent left flank pain will make sure she did have a UTI. Addendum: Patient's Doppler scan preliminarily is negative for any blood clot in her leg, also her labs look reassuring. She declined any pain medication. Recommend elevation of the leg, minimize activity still would recommend getting up and around, no prolonged sitting at her desk without getting up and moving. Update application packaging specialist as needed, return to ED as needed. Continue home meds Lab Data Labs: Lab Results 08/29/22 08/29/22 08/29/22 Range/Units 11:15 11:15 11:20 WBC 8.65 (4.50-11.00) K/uL RBC 4.41 (4.00-5.20) m/uL Hgb 13.6 (12.0-16.0) gm/dL Hct 41.0 (33.0-51.0) % MCV 93 (80-100) fL MCH 31 (26-34) pg MCHC 33 (32-36) gm/dL RDW Coeff of Bár[place] 12.2 (11.5-15.5) % Plt Count 202 (140-440) K/uL Neut % (Auto) 64.4 (42.0-72.0) % Lymph % (Auto) 22.7 (20-44) % [place] % (Auto) 5.0 (0.0-11.0) % Eos % (Auto) 7.3 H (0.0-7.0) % Baso % (Auto) 0.5 (0.0-3.0) % Neut # (Auto) 5.58 (1.7-7.0) K/uL Lymph # (Auto) 1.96 (0.90-2.90) K/uL [place] # (Auto) 0.40 (0.00-0.90) K/UL Eos # (Auto) 0.60 H (0.00-0.50) K/uL Baso # (Auto) 0.04 (0.00-0.30) K/uL Abs Immat Gran (auto) 0.01 (0.00-0.30) K/uL Imm/Tot Granulo (auto) 0.1 % Sodium 138 (135-149) mmol/L Potassium 4.7 (3.6-5.1) mmol/L Chloride 104 (96-114) mmol/L Carbon Dioxide 29 (20-32) mmol/L BUN 23 (5-24) mg/dL Creatinine 0.9 (0.5-1.5) mg/dL Estimated Creat Clear 79.63 Estimated GFR 80 ml/min Glucose 94 (60-115) mg/dL Calcium 9.1 (8.4-10.6) mg/dL Urine Color Yellow (Yellow) Urine Appearance Clear (Clear) Urine pH 7.0 (5.0-8.5) Ur Specific [place] 1.015 (1.000-1.030) Urine Protein Negative (Negative) Urine Glucose (UA) Negative (Negative) Urine Ketones Negative (Negative) Urine Blood Trace-lysed A (Negative) Urine Nitrite Negative (Negative) Urine Bilirubin Negative (Negative) Urine Urobilinogen 0.2 (0.2-1.0) Ur Leukocyte Esterase Negative (Negative) Urine RBC 0-2 (0-2) Urine WBC 0-2 (0-5) Ur Squamous Epith Cells Few (None-Few) Urine Bacteria Few A (None) Discharge Plan Discharge Clinical Impression: Acute leg pain Patient Disposition: Home, Self-Care Condition: Stable Additional Instructions: Light activity, elevate leg above the level of her heart as much as possible, meds at home, update application packaging specialist as needed, return to ED as needed. Prescriptions: No Action dextroamphetamine-amphetamine 10 mg capsule,extended release 24hr 10 mg PO BID Label Comments: 6 months ago, takes as needed albuterol sulfate 90 mcg/actuation HFA aerosol inhaler 2 puff inhalation Q6H PRN magnesium 250 mg tablet 250 mg PO QDAY acetaminophen 500 mg Tablet 1,000 mg PO Q6H PRN (Reason: Pain) Qty: 0 0RF oxycodone 5 mg Tablet 5 mg PO Q4H PRN (Reason: 4 OR GREATER ON PAIN SCALE) 14 Days Qty: 20 0RF fluticasone furoate-vilanterol [Breo Ellipta] 200-25 mcg/dose blister with device 1 inh INHALATION Q24H Label Comments: INHALE 1 PUFF BY MOUTH EVERY DAY ketorolac 10 mg tablet 10 mg PO Q6H PRN (Reason: pain) 5 Days Qty: 20 0RF Label Comments: at least 2 weeks tramadol 50 mg tablet 50 mg PO Q6H PRN (Reason: pain) Qty: 10 0RF Label Comments: 2 weeks ago trazodone 100 mg tablet 100 mg PO QDAY Follow Up/Referrals: Keira Irvin MD [Primary Care Provider] - Stand Alone Forms: [email or web address] Info Instructions
[2022-08-29 11:25] LABS: Basophils Absolute Auto 0.04 K/uL (0.00-0.30); Basophils Percent Auto 0.5 % (0.0-3.0); Eosinophils Percent Auto 7.3 % (0.0-7.0); Hemoglobin* 13.6 gm/dL (12.0-16.0); Immature Granulocytes Abs Auto 0.01 K/uL (0.00-0.30); Immature Granulocytes Pct Auto 0.1 %; Lymphocytes Absolute Auto 1.96 K/uL (0.90-2.90); Lymphocytes Percent Auto 22.7 % (20-44); Mean Corpuscular HGB Conc 33 gm/dL (32-36); Mean Corpuscular Hemoglobin 31 pg (26-34); Mean Corpuscular Volume 93 fL (80-100); Neutrophils Absolute Auto 5.58 K/uL (1.7-7.0); Neutrophils Percent Auto 64.4 % (42.0-72.0); Platelet Count* 202 K/uL (140-440); RDW Coefficient of Variation % 12.2 % (11.5-15.5); Red Blood Count 4.41 m/uL (4.00-5.20); White Blood Count* 8.65 K/uL (4.50-11.00)
[2022-08-29 11:28] LABS: Slide Review Reflex No
[2022-08-29 11:31] LABS: Appearance Urine Clear (Clear); Bilirubin Urine Negative (Negative); Blood Urine Trace-lysed (Negative); Color Urine Yellow (Yellow); Glucose Urine Negative (Negative); Ketones Urine Negative (Negative); Leukocyte Esterase Urine Negative (Negative); Nitrite Urine Negative (Negative); Protein Urine Negative (Negative); Specific Gravity Urine 1.015 (1.000-1.030); Urobilinogen Urine 0.2 (0.2-1.0)
[2022-08-29 11:36] LABS: Chloride* 104 mmol/L (96-114); Potassium* 4.7 mmol/L (3.6-5.1); Sodium* 138 mmol/L (135-149)
[2022-08-29 11:39] LABS: RBC Urine 0-2 (0-2); WBC Urine 0-2 (0-5)
[2022-08-29 11:39] LABS: Blood Urea Nitrogen* 23 mg/dL (5-24); Calcium* 9.1 mg/dL (8.4-10.6); Carbon Dioxide* 29 mmol/L (20-32); Creatinine* 0.9 mg/dL (0.5-1.5); Est. Creatinine Clearance* 79.63; Estimated Glomerular Filt Rate 80 ml/min; Glucose* 94 mg/dL (60-115)
[2022-08-29 11:40] LABS: Bacteria Urine Few; Squamous Epithelial Cell Urine Few (None-Few)
--- OUTSIDE RECORDS SUMMARY | 2022-08-29 12:08 | XMS_ITS | Encounter Summary ---
:1975 Author Organization [facility] Address [address] [place] [address]. [place] [address] Care Team Providers Name Role Phone Yung Madrigal MD Unavailable Unavailable Winston Villatoro OD Unavailable Denise Woodson Ra BUSINESS SERVICES REPRESENTATIVE NET REPAIRER Unavailable [phone] Denise Woodson Ra BUSINESS SERVICES REPRESENTATIVE NET REPAIRER Primary Care Provider [phone] Reason for Visit Reason Comments Medication Refill Encounter Details Date Type Department Care Team Description 01/21/2022 Refill [facility] Denise Woodson Ra, Medication Refill [place] BUSINESS SERVICES REPRESENTATIVE NET REPAIRER [address] [address] [place] [address] [place], [place] [id number] (Wo rk) Social History Tobacco Use Types Packs/Day Years Used Date Smoking Tobacco: Never Smokeless Tobacco: Never Alcohol Use Standard Drinks/Week Comments Not Currently 0 (1 standard drink = 0.6 oz pure alcoho l) minimal Sex Assigned at Date Recorded Not on file documented as of this encounter Miscellaneous Notes Telephone Encounter - Angelo Escobar - 02/13/2022 10:32 AM CDT Mailed letter Telephone Encounter - Albina Biggs - 02/05/2022 10:31 AM CDT Attempt 2, lvm Myrna Biggs- Supervisor Packing Telephone Encounter - Angelo Escobar - 01/22/2022 4:28 PM CDT Sent Abeelohart message to schedule appt & sent ACT. Telephone Encounter - Sara White, GEMA - 01/22/2022 3:49 PM CDT Meghna refill given. Needs ACT. Sara White, RN on 01/22/2022 at 3:48 PM documented in this encounter Plan of Treatment Not on filedocumented as of this encounter Visit Diagnoses Diagnosis Moderate persistent asthma without compl ication Unspecified asthma documented in this encounter Additional Health Concerns Assessment Noted Time PHQ-9 Depression Total Score: 0 06/23/2021 4:11 PM CDT documented as of this encounter Care Teams Fabrication Inspector Relationship Specialty Start Date End Date Yung Madrigal MD PCP - Orthopaedics Orthopedics 08/26/12 RETIRED Winston Villatoro, AMELIE PCP - Ophthalmology Ophthalmology 02/11/13 [facility] [address] [facility] [address] [place] [address] Denise Woodson Ra, APRN NET REPAIRER PCP - General Family Practice 09/21/20 [address] [address] [place], [place] [id number] Denise Woodson Ra, APRN NET REPAIRER Assigned PCP 07/17/20 [address] [address] [place], [place] [id number] documented as of this encounter
--- OUTSIDE RECORDS SUMMARY | 2022-08-29 12:08 | XMS_ITS | Encounter Summary ---
:1975 Author Organization [place] Address [address] [place] [address] Care Team Providers Name Role Phone Yung Madrigal MD Unavailable Unavailable Winston Villatoro OD Unavailable Denise Woodson Ra, APRN ECONOMIC DEVELOPMENT SPECIALIST Unavailable [phone] Denise Woodson Ra EXCEPTIONAL STUDENT EDUCATION TEACHER ECONOMIC DEVELOPMENT SPECIALIST Primary Care Provider [phone] Reason for Visit Reason Comments Medication Refill Encounter Details Date Type Department Care Team Description 06/11/2021 Refill [facility] Denise Woodson Ra, Medication Refill [place] BARRERA ECONOMIC DEVELOPMENT SPECIALIST [id number] [place] [address] [phone] Social History Tobacco Use Types Packs/Day Years Used Date Smoking Tobacco: Never Smokeless Tobacco: Never Alcohol Use Standard Drinks/Week Comments Not Currently 0 (1 standard drink = 0.6 oz pure alcoho l) minimal Sex Assigned at Date Recorded Not on file documented as of this encounter Plan of Treatment Not on filedocumented as of this encounter Visit Diagnoses Diagnosis Insomnia, unspecified type documented in this encounter Additional Health Concerns Assessment Noted Time PHQ-9 Depression Total Score: 0 01/04/2021 9:31 AM CDT documented as of this encounter Care Teams Cement Tile Maker Relationship Specialty Start Date End Date Yung Madrigal MD PCP - Orthopaedics Orthopedics 08/26/12 RETIRED Winston Villatoro, OD PCP - Ophthalmology Ophthalmology 02/11/13 [facility] [place] [address] [place] [address] Denise Woodson Ra, BARRERA ECONOMIC DEVELOPMENT SPECIALIST PCP - General Family Practice 09/21/20 [id number] [address] [id number] Denise Woodson Ra, BARRERA ECONOMIC DEVELOPMENT SPECIALIST Assigned PCP 07/17/20 [id number] [address] [id number] documented as of this encounter
--- OUTSIDE RECORDS SUMMARY | 2022-08-29 12:08 | XMS_ITS | Encounter Summary ---
:1975 Author Organization [facility] Address [address] [place] [address]. [place] [address] Care Team Providers Name Role Phone Yung Madrigal MD Unavailable Unavailable Winston Villatoro OD Unavailable Denise Woodson Ra FISHER TRAMMEL NET MILL HELPER Unavailable [phone] Denise Woodson Ra FISHER TRAMMEL NET MILL HELPER Primary Care Provider [phone] Reason for Visit Reason Comments Medication Refill Encounter Details Date Type Department Care Team Description 03/05/2021 Refill [facility] Denise Woodson Ra, Medication Refill [place] FISHER TRAMMEL NET MILL HELPER [address] [address] [place] [address] [place], [place] [id number] (Wo rk) Social History Tobacco Use Types Packs/Day Years Used Date Smoking Tobacco: Never Smokeless Tobacco: Never Alcohol Use Standard Drinks/Week Comments Not Currently 0 (1 standard drink = 0.6 oz pure alcoho l) minimal Sex Assigned at Date Recorded Not on file COVID-19 Exposure Response Date Recorded In the last month, have you been in contact with No / Unsure 02/08/2021 10:05 AM CDT someone who was confirmed or suspected to have Coronavirus / COVID-19? documented as of this encounter Miscellaneous Notes Telephone Encounter - Kati Yang RN - 03/06/2021 12:47 PM CDT Prescription approved per [facility] Refill Protocol. Kati Yang, RN documented in this encounter Plan of Treatment Not on filedocumented as of this encounter Visit Diagnoses Diagnosis Moderate persistent asthma without compl ication Unspecified asthma documented in this encounter Additional Health Concerns Assessment Noted Time PHQ-9 Depression Total Score: 0 01/04/2021 9:31 AM CDT documented as of this encounter Care Teams Continuity Editor Relationship Specialty Start Date End Date Yung Madrigal MD PCP - Orthopaedics Orthopedics 08/26/12 RETIRED Winston Villatoro OD PCP - Ophthalmology Ophthalmology 02/11/13 [facility] [address] [facility] [address] [place] [address] Denise Woodson Ra, BARRERA MILL HELPER PCP - General Family Practice 09/21/20 [id number] [address] [id number] Denise Woodson Ra, APRN MILL HELPER Assigned PCP 07/17/20 [id number] [address] [id number] documented as of this encounter
--- OUTSIDE RECORDS SUMMARY | 2022-08-29 12:08 | XMS_ITS | Encounter Summary ---
:1975 Author Organization [facility] Address [address] [place] [address] Care Team Providers Name Role Phone Yung Madrigal MD Unavailable Unavailable Winston Villatoro OD Unavailable Denise Woodson Ra, APRN PATTERN DRUM MAKER Unavailable [phone] Denise Woodson Ra, APRN PATTERN DRUM MAKER Primary Care Provider [phone] Encounter Details Date Type Department Care Team Description 01/04/2021 Travel Social History Tobacco Use Types Packs/Day Years Used Date Smoking Tobacco: Never Smokeless Tobacco: Never Alcohol Use Standard Drinks/Week Comments Yes 0 (1 standard drink = 0.6 oz pure alcoho l) minimal Sex Assigned at Date Recorded Not on file COVID-19 Exposure Response Date Recorded In the last month, have you been in contact with No / Unsure 01/04/2021 8:34 AM CDT someone who was confirmed or suspected to have Coronavirus / COVID-19? documented as of this encounter Plan of Treatment Not on filedocumented as of this encounter Visit Diagnoses Not on filedocumented in this encounter Additional Health Concerns Assessment Noted Time PHQ-9 Depression Total Score: 0 01/04/2021 9:31 AM CDT documented as of this encounter Care Teams Air Director Relationship Specialty Start Date End Date Yung Madrigal MD PCP - Orthopaedics Orthopedics 08/26/12 RETIRED Winston Villatoro, AMELIE PCP - Ophthalmology Ophthalmology 02/11/13 [facility] [address] [facility] [address] [place] [address] Denise Woodson Ra, BARRERA PATTERN DRUM MAKER PCP - General Family Practice 09/21/20 [id number] [address] [id number] Denise Woodson Ra, APRN PATTERN DRUM MAKER Assigned PCP 07/17/20 [id number] [address] [id number] documented as of this encounter
--- OUTSIDE RECORDS SUMMARY | 2022-08-29 12:08 | XMS_ITS | Encounter Summary ---
:1975 Author Organization [place] Address [address] [place] [address]. [place] [address] Care Team Providers Name Role Phone Yung Madrigal MD Unavailable Unavailable Winston Villatoro OD Unavailable Denise Woodson Ra ASSEMBLER FINGER BUFFS IT PROJECT MANAGER Unavailable [phone] Denise Woodson Ra ASSEMBLER FINGER BUFFS IT PROJECT MANAGER Primary Care Provider [phone] Reason for Visit Reason Comments Medication Refill Encounter Details Date Type Department Care Team Description 11/23/2021 Refill [facility] Denise Woodson Ra, Medication Refill [place] ASSEMBLER FINGER BUFFS IT PROJECT MANAGER [address] [address] [place] [address] [place], [place] [phone] (Wo rk) Social History Tobacco Use Types Packs/Day Years Used Date Smoking Tobacco: Never Smokeless Tobacco: Never Alcohol Use Standard Drinks/Week Comments Not Currently 0 (1 standard drink = 0.6 oz pure alcoho l) minimal Sex Assigned at Date Recorded Not on file documented as of this encounter Miscellaneous Notes Telephone Encounter - Filomena Gomez RN - 11/23/2021 3:30 PM CST Prescription approved per [facility] Refill Protocol. Filomena Gomez RN RCYCLE MAKER documented in this encounter Plan of Treatment Not on filedocumented as of this encounter Visit Diagnoses Diagnosis Moderate persistent asthma without compl ication Unspecified asthma documented in this encounter Additional Health Concerns Assessment Noted Time PHQ-9 Depression Total Score: 0 06/23/2021 4:11 PM CDT documented as of this encounter Care Teams Director Of Events Relationship Specialty Start Date End Date Yung Madrigal MD PCP - Orthopaedics Orthopedics 08/26/12 RETIRED Winston Villatoro, AMELIE PCP - Ophthalmology Ophthalmology 02/11/13 [facility] [address] [facility] [address] [place] [address] Denise Woodson Ra, BARRERA IT PROJECT MANAGER PCP - General Family Practice 09/21/20 [id number] [address] [id number] Denise Woodson Ra, APRN IT PROJECT MANAGER Assigned PCP 07/17/20 [id number] [address] [id number] documented as of this encounter
--- OUTSIDE RECORDS SUMMARY | 2022-08-29 12:08 | XMS_ITS | Encounter Summary ---
:1975 Author Organization [facility] Address [address] [place] [address] Care Team Providers Name Role Phone Yung Madrigal MD Unavailable Unavailable Winston Villatoro OD Unavailable Denise Woodson Ra, APRN PRODUCE BUYER Unavailable [phone] Denise Woodson Ra, APRN PRODUCE BUYER Primary Care Provider [phone] Encounter Details Date Type Department Care Team Description 07/27/2021 Travel Social History Tobacco Use Types Packs/Day Years Used Date Smoking Tobacco: Never Smokeless Tobacco: Never Alcohol Use Standard Drinks/Week Comments Not Currently 0 (1 standard drink = 0.6 oz pure alcoho l) minimal Sex Assigned at Date Recorded Not on file COVID-19 Exposure Response Date Recorded In the last month, have you been in contact with No / Unsure 07/27/2021 8:15 AM EQUITY SALES ASSISTANT someone who was confirmed or suspected to have Coronavirus / COVID-19? documented as of this encounter Plan of Treatment Not on filedocumented as of this encounter Visit Diagnoses Not on filedocumented in this encounter Additional Health Concerns Assessment Noted Time PHQ-9 Depression Total Score: 0 06/23/2021 4:11 PM CDT documented as of this encounter Care Teams Scientific Artist Relationship Specialty Start Date End Date Yung Madrigal MD PCP - Orthopaedics Orthopedics 08/26/12 RETIRED Winston Villatoro, OD PCP - Ophthalmology Ophthalmology 02/11/13 [facility] [address] [facility] [address] [place] [address] Denise Woodson Ra, BARRERA PRODUCE BUYER PCP - General Family Practice 09/21/20 [id number] [address] [id number] Denise Woodson Ra, APRN PRODUCE BUYER Assigned PCP 07/17/20 [id number] [address] [id number] documented as of this encounter
--- OUTSIDE RECORDS SUMMARY | 2022-08-29 12:08 | XMS_ITS | Encounter Summary ---
:1975 Author Organization [facility] Address [address] [place] [address] Care Team Providers Name Role Phone Yung Madrigal MD Unavailable Unavailable Winston Villatoro OD Unavailable Denise Woodson Ra, APRN CATALYST OPERATOR Unavailable [phone] Denise Woodson Ra, APRN CATALYST OPERATOR Primary Care Provider [phone] Encounter Details Date Type Department Care Team Description 05/01/2022 Travel Social History Tobacco Use Types Packs/Day Years Used Date Smoking Tobacco: Never Smokeless Tobacco: Never Alcohol Use Standard Drinks/Week Comments Not Currently 0 (1 standard drink = 0.6 oz pure alcoho l) minimal Sex Assigned at Date Recorded Not on file COVID-19 Exposure Response Date Recorded In the last 10 days, have you been in contact with No / Unsu re 05/01/2022 7:16 AM CDT someone who was confirmed or suspected to have Coronavirus/COVID-19? documented as of this encounter Plan of Treatment Not on filedocumented as of this encounter Visit Diagnoses Not on filedocumented in this encounter Additional Health Concerns Assessment Noted Time PHQ-9 Depression Total Score: 0 06/23/2021 4:11 PM CDT documented as of this encounter Care Teams Health Promotion Manager Relationship Specialty Start Date End Date Yung Madrigal MD PCP - Orthopaedics Orthopedics 08/26/12 RETIRED Winston Villatoro, OD PCP - Ophthalmology Ophthalmology 02/11/13 [facility] [address] [facility] [address] [place] [address] Denise Woodson Ra, BARRERA CATALYST OPERATOR PCP - General Family Practice 09/21/20 [id number] [address] [id number] Denise Woodson Ra, APRN CATALYST OPERATOR Assigned PCP 07/17/20 [id number] [address] [id number] documented as of this encounter
--- OUTSIDE RECORDS SUMMARY | 2022-08-29 12:08 | XMS_ITS | Encounter Summary ---
:1975 Author Organization [facility] Address [address] [place] [address] Care Team Providers Name Role Phone Yung Madrigal MD Unavailable Unavailable Winston Villatoro OD Unavailable Denise Woodson Ra, APRN FORM SETTER Unavailable [phone] Denise Woodson Ra, APRN FORM SETTER Primary Care Provider [phone] Encounter Details Date Type Department Care Team Description 02/08/2021 Travel Social History Tobacco Use Types Packs/Day [...] documented as of this encounter Care Teams Asset Protection Agent Relationship Specialty Start Date End Date Yung Madrigal MD PCP - Orthopaedics Orthopedics 08/26/12 RETIRED Winston Villatoro, OD PCP - Ophthalmology Ophthalmology 02/11/13 [facility] [address] [facility] [address] [place] [address] Denise Woodson Ra, BARRERA FORM SETTER PCP - General Family Practice 09/21/20 [id number] [address] [id number] Denise Woodson Ra, APRN FORM SETTER Assigned PCP 07/17/20 [id number] [place] [place] [id number] documented as of this encounter
--- OUTSIDE RECORDS SUMMARY | 2022-08-29 12:08 | XMS_ITS | Encounter Summary ---
:1975 Author Organization [facility] Address [address] [place] [address] Care Team Providers Name Role Phone Yung Madrigal MD Unavailable Unavailable Winston Villatoro OD Unavailable Denise Woodson Ra, APRN NURSING ADMIN Unavailable [phone] Denise Woodson Ra, APRN NURSING ADMIN Primary Care Provider [phone] Encounter Details Date Type Department Care Team Description 06/23/2021 Travel Social History Tobacco Use Types Packs/Day Years Used Date Smoking Tobacco: Never Smokeless Tobacco: Never Alcohol Use Standard Drinks/Week Comments Not Currently 0 (1 standard drink = 0.6 oz pure alcoho l) minimal Sex Assigned at Date Recorded Not on file COVID-19 Exposure Response Date Recorded In the last month, have you been in contact with No / Unsure 06/23/2021 3:55 PM CDT someone who was confirmed or suspected to have Coronavirus / COVID-19? documented as of this encounter Plan of Treatment Not on filedocumented as of this encounter Visit Diagnoses Not on filedocumented in this encounter Additional Health Concerns Assessment Noted Time PHQ-9 Depression Total Score: 0 06/23/2021 4:11 PM CDT documented as of this encounter Care Teams Coagulating Operator Relationship Specialty Start Date End Date Yung Madrigal MD PCP - Orthopaedics Orthopedics 08/26/12 RETIRED Winston Villatoro, OD PCP - Ophthalmology Ophthalmology 02/11/13 [facility] [address] [facility] [address] [place] [address] Denise Woodson Ra, BARRERA NURSING ADMIN PCP - General Family Practice 09/21/20 [id number] [address] [id number] Denise Woodson Ra, APRN NURSING ADMIN Assigned PCP 07/17/20 [id number] [address] [id number] documented as of this encounter
--- OUTSIDE RECORDS SUMMARY | 2022-08-29 12:08 | XMS_ITS | Encounter Summary ---
:1975 Author Organization [facility] Address [address] [place] [address] Care Team Providers Name Role Phone Yung Madrigal MD Unavailable Unavailable Winston Villatoro OD Unavailable Denise Woodson Ra, APRN, CNP Unavailable [phone] Denise Woodson Ra, APRN, CNP Primary Care Provider [phone] Reason for Visit Reason Comments Physical fasting Encounter Details Date Type Department Care Team Description 07/27/2021 Office Visit [facility] Denise Woodson general medical examination at a health care facility (Primary Dx); Clinic Ginny Gonsales APRN CNP Moderate persistent asthma without compl ication; [id number] [address] [id number] [address] Insomnia, unspecified type; [address] [place], [place] CARDIOVASCULAR SCREENING; LD L GOAL LESS THAN 160 [place], [place] [id number] Social History Tobacco Use Types Packs/Day Years Used Date Smoking Tobacco: Never Smokeless Tobacco: Never Alcohol Use Standard Drinks/Week Comments Not Currently 0 (1 standard drink = 0.6 oz pure alcoho l) minimal Sex Assigned at Date Recorded Not on file COVID-19 Exposure Response Date Recorded In the last month, have you been in contact with No / Unsure 07/27/2021 8:15 AM ROLL FORMER someone who was confirmed or suspected to have Coronavirus / COVID-19? documented as of this encounter Last Filed Vital Signs Vital Sign Reading Time Taken Comments Blood Pressure 108/68 07/27/2021 8:28 AM ROLL FORMER Pulse 68 07/27/2021 8:28 AM ROLL FORMER Temperature 36.9 ??C (98.4 ??F) 07/27/2021 8:28 AM ROLL FORMER Respiratory Rate 12 07/27/2021 8:28 AM ROLL FORMER Oxygen Saturation 97% 07/27/2021 8:28 AM ROLL FORMER Inhaled Oxygen Concentration - - Weight 99.3 kg (219 lb) 07/27/2021 8:28 AM ROLL FORMER Height - - Body Mass Index 32.58 02/08/2021 10:22 AM CDT documented in this encounter Patient Instructions Patient InstructionsAzra Hawkins, IT AUDIT MANAGER - 07/27/2021 8:20 AM CST Preventive Health Recommendations Female Ages 40 to 49 Yearly exam: ??? See your health care provider every year in order to 1. Review health changes. 2. Discuss preventive care. 3. Review your medicines if your doctor prescribed any. ??? Get a Pap test every three years (unless you have an abnormal result and your provider advises testing more often). ??? If you get Pap tests with HPV test, you only need to test every 5 years, unless you have an abnormal result. You do not need a Pap test if your uterus was removed (hysterectomy) and you have not had cancer. ??? You should be tested each year for STDs (sexually transmitted diseases), if you're at risk. ??? Ask your doctor if you should have a mammogram. ??? Have a colonoscopy (test for colon cancer) if someone in your family has had colon cancer or polyps before age 50. ??? Have a cholesterol test every 5 years. ??? Have a diabetes test (fasting glucose) after age 45. If you are at risk for diabetes, you shouldhave this test every 3 years. Shots: Get a flu shot each year. Get a tetanus shot every 10 years. Nutrition: ??? Eat at least 5 servings of fruits and vegetables each day. ??? Eat whole-grain bread, whole-wheat pasta and brown rice instead of white grains and rice. ??? Get adequate Calcium and Vitamin D. Lifestyle ??? Exercise at least 150 minutes a week (an average of 30 minutes a day, 5 days a week). This will help you control your weight and prevent disease. ??? Limit alcohol to one drink per day. ??? No smoking. ??? Wear sunscreen to prevent skin cancer. ??? See your dentist every six months for an exam and cleaning. FORMER documented in this encounter Progress Notes Denise Woodson Ra, TACTICAL/MOBILE WATCH OFFICER SELLING UNDERWRITER - 07/27/2021 8:20 AM CST SUBJECTIVE: CC: Alcon Zamora is an 45 year old woman who presents for preventive health visit. Patient has been advised of split billing requirements and indicates understanding: Yes Healthy Habits: Getting at least 3 servings of Calcium per day: Yes Bi-annual eye exam: Yes Dental care twice a year: Yes Sleep apnea or symptoms of sleep apnea: None Diet: Regular (no restrictions) Frequency of exercise: None Taking medications regularly: Yes Medication side effects: None PHQ-2 Total Score: 0 Additional concerns today: No Asthma is stable. Compliant with medication. No concerns. Sleeping well with trazodone. No side effects. Takes every night. Today's PHQ-2 Score: PHQ-2 (??1998 Pfizer) 07/27/2021 Q1: Little interest or pleasure in doing things 0 Q2: Feeling down, depressed or hopeless 0 PHQ-2 Score 0 Q1: Little interest or pleasure in doing things Not at all Q2: Feeling down, depressed or hopeless Not at all PHQ-2 Score 0 Abuse: Current or Past (Physical, Sexual or Emotional) - No Do you feel safe in your environment? Yes Have you ever done Advance Care Planning? (For example, a Health Directive, POLST, or a discussion with a medical provider or your loved ones about your wishes): Social History Tobacco Use ??? Smoking status: Never Smoker ??? Smokeless tobacco: Never Used Substance Use Topics ??? Alcohol use: Not Currently Comment: minimal If you drink alcohol do you typically have >3 drinks per day or >7 drinks per week? No Alcohol Use 07/27/2021 Prescreen: >3 drinks/day or >7 drinks/week? No Prescreen: >3 drinks/day or >7 drinks/week? - Reviewed orders with patient. Reviewed health maintenance and updated orders accordingly - Yes Patient Active Problem List Diagnosis ??? Generalized anxiety disorder ??? Rosacea ??? Chronic respiratory disease arising in the period ??? Attention deficit hyperactivity disorder (ADHD), predominantly inattentive type ??? BPD (bronchopulmonary dysplasia) ??? Herniated cervical disc ??? DDD (degenerative disc disease), cervical ??? Lizy-Danlos syndrome ??? ASD (atrial septal defect) ??? Moderate persistent asthma without complication ??? Chronic rhinitis ??? Mild recurrent major depression (H) ??? Insomnia, unspecified type ??? Anti-TPO antibodies present Past Surgical History: Procedure Laterality Date ??? C KICK PLATE INSTALLER PROCEDURE DATE: vag del. ??? C KICK PLATE INSTALLER PROCEDURE DATE: 2000 tubal ligation ??? C KICK PLATE INSTALLER PROCEDURE DATE: 1994 D&C ??? C VAGINAL HYSTERECTOMY 01/30/06 ??? CARDIAC SURGERY 06/2006 heart defect repair ??? ESOPHAGOSCOPY, GASTROSCOPY, DUODENOSCOPY (EGD), COMBINED N/A 02/08/2021 Procedure: ESOPHAGOGASTRODUODENOSCOPY (EGD); Surgeon: Tuan Miller MD; Location: [facility] ??? GI SURGERY 09/2020 gallbladder removed ??? HC KNEE SCOPE,MED/LAT MENISECTOMY 08/04/13 LT ??? HEART CATH, CLOSURE ATRIAL SEPTAL DEFECT 06/20/06 amplatzer septal occluder- serial #[id number] ??? RW KICK PLATE INSTALLER (ABSTRACTED) pneumonia several times ??? SURGICAL PATHOLOGY EXAM 02/2012 excision of lipoma on chest wall Social History Tobacco Use ??? Smoking status: Never Smoker ??? Smokeless tobacco: Never Used Substance Use Topics ??? Alcohol use: Not Currently Comment: minimal Family History Problem Relation Age of Onset ??? Cerebrovascular Disease Maternal Grandmother and great maternal grandmother ??? Autoimmune Disease Cousin ??? Diabetes No family hx of ??? Hypertension No family hx of ??? Breast Cancer No family hx of ??? Cancer - colorectal No family hx of ??? Alzheimer Disease No family hx of ??? Cancer No family hx of ??? Heart Disease No family hx of ??? Thyroid Disease No family hx of reviewed 06/05/2006 ??? Anesthesia Reaction No family hx of ??? Blood Disease No family hx of Breast Cancer Screening: Any new diagnosis of family breast, ovarian, or bowel cancer? FHS-7: No flowsheet data found. Mammogram Screening - Offered annual screening and updated Health Maintenance for [place] plan based on risk factor consideration Pertinent mammograms are reviewed under the imaging tab. History of abnormal Pap smear: Status post benign hysterectomy. Health Maintenance and Surgical History updated. Reviewed and updated as needed this visit by clinical staff Tobacco Allergies Meds Med Hx Surg Hx Fam Hx Soc Hx Reviewed and updated as needed this visit by Provider Review of Systems Constitutional: Negative for chills and fever. HENT: Negative for congestion, ear pain, hearing loss and sore throat. Eyes: Negative for pain and visual disturbance. Respiratory: Negative for cough and shortness of breath. Cardiovascular: Negative for chest pain, palpitations and peripheral edema. Gastrointestinal: Negative for abdominal pain, constipation, diarrhea, heartburn, hematochezia and nausea. Breasts: Negative for tenderness, breast mass and discharge. Genitourinary: Negative for dysuria, frequency, genital sores, hematuria, pelvic pain, urgency, vaginal bleeding and vaginal discharge. Musculoskeletal: Negative for arthralgias, joint swelling and myalgias. Skin: Negative for rash. Neurological: Negative for dizziness, weakness, headaches and paresthesias. Psychiatric/Behavioral: Negative for mood changes. The patient is not nervous/anxious. OBJECTIVE: BP 108/68 (BP Location: Right arm, Patient Position: Sitting, Cuff Size: Adult Large) Pulse 68 Temp 98.4 ??F (36.9 ??C) (Oral) Resp 12 Wt 99.3 kg (219 lb) LMP 01/07/2006 SpO2 97% BMI 32.58 kg/m?? Physical Exam GENERAL: healthy, alert and no distress EYES: Eyes grossly normal to inspection HENT: ear canals and TM's normal, nose and mouth without ulcers or lesions NECK: no adenopathy, no asymmetry, masses, or scars and thyroid normal to palpation RESP: lungs clear to auscultation - no rales, rhonchi or wheezes BREAST: normal without masses, tenderness or nipple discharge and no palpable axillary masses or adenopathy CV: regular rate and rhythm, normal S1 S2, no S3 or S4, no murmur, click or rub, no peripheral edemaand peripheral pulses strong ABDOMEN: soft, nontender, no hepatosplenomegaly, no masses and bowel sounds normal NEURO: Normal strength and tone, mentation intact and speech normal PSYCH: mentation appears normal, affect normal/bright Diagnostic Test Results: Labs reviewed in Epic ASSESSMENT/PLAN: (Z00.00) Routine general medical examination at a health care facility (primary encounter diagnosis) Plan: Comprehensive metabolic panel (BMP + Alb, Alk Phos, ALT, AST, Total. Bili, TP) (J45.40) Moderate persistent asthma without complication Comment: stable. Plan: fluticasone-vilanterol (BREO ELLIPTA) 200-25 MCG/INH inhaler, OFFICE/OUTPT VISIT,EST,LEVL III Refilled. (G47.00) Insomnia, unspecified type Comment: stable. Plan: traZODone (DESYREL) 50 MG tablet, OFFICE/OUTPT VISIT,EST,LEVL III Refilled. (Z13.6) CARDIOVASCULAR SCREENING; LDL GOAL LESS THAN 160 Comment: Plan: Lipid panel reflex to direct LDL Fasting, Comprehensive metabolic panel (BMP + Alb, Alk Phos, ALT, AST, Total. Bili, TP) Patient has been advised of split billing requirements and indicates understanding: Yes COUNSELING: Reviewed preventive health counseling, as reflected in patient instructions Estimated body mass index is 32.58 kg/m?? as calculated from the following: Height as of 02/08/21: 1.746 m (5' 8.75). Weight as of this encounter: 99.3 kg (219 lb). Discussed exercise. She reports that she has never smoked. She has never used smokeless tobacco. Counseling Resources: ATP IV Guidelines Pooled Cohorts Equation Calculator Breast Cancer Risk Calculator BRCA-Related Cancer Risk Assessment: FHS-7 Tool FRAX Risk Assessment ICSI Preventive Guidelines Dietary Guidelines for Americans, 2010 USDA's MyPlate ASA Prophylaxis Lung CA Screening Denise Woodson APRN CNP [facility] FORMER documented in this encounter Plan of Treatment Not on filedocumented as of this encounter Procedures Procedure Name Priority Date/Time Associated Diagnosis Comme nts LIPID REFLEX TO Routine 07/27/2021 8:57 CARDIOVASCULAR Results for this DIRECT LDL PANEL AM ROLL FORMER SCREENING; LDL GOAL proc edure are in LESS THAN 160 the results section. COMPREHENSIVE Routine 07/27/2021 8:57 Routine general Results for this METABOLIC PANEL AM ROLL FORMER medical examination at [facility] are in a health care fa cility the results CARDIOVASCULAR section. SCREENING; LDL GOAL LESS THAN 160 documented in this encounter Results Comprehensive metabolic panel (BMP + Alb, Alk Phos, ALT, AST, Total. Bili, TP) (07/27/2021 8:57 AM ROLL FORMER) athologist Signature Sodium 139 133 - 144 07/28/2021 [facility] mmol/L 10:12 AM ROLL FORMER Potassium 4.0 3.4 - 5.3 07/28/2021 [facility] mmol/L 10:12 AM ROLL FORMER Chloride 105 94 - 109 07/28/2021 [facility] mmol/L 10:12 AM ROLL FORMER Carbon Dioxide 26 20 - 32 07/28/2021 [facility] (CO2) mmol/L 10:12 AM ROLL FORMER Anion Gap 8 3 - 14 07/28/2021 [facility] mmol/L 10:12 AM ROLL FORMER Urea Nitrogen 20 7 - 30 07/28/2021 [facility] mg/dL 10:12 AM ROLL FORMER Creatinine 0.74 0.52 - 07/28/2021 [facility] 1.04 mg/dL 10:12 AM ROLL FORMER Calcium 8.8 8.5 - 10.1 07/28/2021 [facility] mg/dL 10:12 AM ROLL FORMER Glucose 95 70 - 99 07/28/2021 [facility] mg/dL 10:12 AM ROLL FORMER Alkaline 67 40 - 150 07/28/2021 [facility] Phosphatase U/L 10:12 AM ROLL FORMER AST 8 0 - 45 U/L 07/28/2021 [facility] 10:12 AM ROLL FORMER ALT 18 0 - 50 U/L 07/28/2021 [facility] 10:12 AM ROLL FORMER Protein Total 7.6 6.8 - 8.8 07/28/2021 [facility] g/dL 10:12 AM ROLL FORMER Albumin 3.4 3.4 - 5.0 07/28/2021 [facility] g/dL 10:12 AM ROLL FORMER Bilirubin Total 0.5 0.2 - 1.3 07/28/2021 [facility] mg/dL 10:12 AM ROLL FORMER GFR Estimate >90 >60 07/28/2021 [facility] mL/min/1.7 10:12 AM ROLL FORMER 3m2 Comment: As of March 26, 2021, eGFR is ca lculated by the CKD-EPI creatinine equation, without race adjustment. eGFR can be inf luenced by muscle mass, exercise, and diet. The reported eGFR is an estimation only and is only applicable if the renal function is stable. Specimen Anatomical Collection Method / Collection Time Recei earl Time (Source) Location / Volume Laterality Blood STRUCTURE OF RIGHT Venipuncture / 07/27/2021 8:57 07/17 8:57 UPPER LIMB / Unknown AM ROLL FORMER AM ROLL FORMER Unknown Denise Woodson APRN SELLING UNDERWRITER LAB - BLOOD ORDERABLES Performing Organization Address City/State/ZIP Code Phon e Number [facility] [place], [place] [phone] [facility] [phone] [place] [address] Lab (no room number, 1st floor of clinic) [facility] [place], [place] [phone] [facility] [address] Lab (no room number, 1st floor of clinic) (ABNORMAL) Lipid panel reflex to direct LDL Fasting (07/27/2021 8:57 AM ROLL FORMER) [facility] gist Method Time Signature Cholesterol 202 (H) <200 07/28/2021 [facility] mg/dL 10:12 AM ROLL FORMER Triglycerides 91 <150 07/28/2021 [facility] mg/dL 10:12 AM ROLL FORMER Direct Measure 56 >=50 07/28/2021 [facility] HDL mg/dL 10:12 AM RO[facility] FORMER LDL Cholesterol 128 (H) <=100 07/28/2021 [facility] Calculated mg/dL 10:12 AM ROLL FORMER Non HDL 146 (H) <130 07/28/2021 [facility] Cholesterol mg/dL 10:12 AM ROLL FORMER Patient Fasting > Yes 07/28/2021 [facility] RY 8hrs? 10:12 AM ROLL FORMER Specimen Anatomical Collection Method / Collection Time Recei earl Time (Source) Location / Volume Laterality Blood STRUCTURE OF RIGHT Venipuncture / 07/27/2021 8:57 07/17 8:57 UPPER LIMB / Unknown AM ROLL FORMER AM ROLL FORMER Unknown Narrative [facility] - 07/28/2021 10:12 AM ROLL FORMER Cholesterol Desirable: ??<200 mg/dL Triglycerides Normal: ??Less than 150 mg/dL Borderline High: ??150-199 mg/dL High: ??200-499 mg/dL Very High: ??Greater than or equal to 50 0 mg/dL Direct Measure HDL Female: ??Greater than or equal to 50 mg /dL Male: ??Greater than or equal to 40 mg/d L LDL Cholesterol Desirable: ??<100mg/dL Above Desirable: ??100-129 mg/dL Borderline High: ??130-159 mg/dL High: ??160-189 mg/dL Very High: ??>= 190 mg/dL Non HDL Cholesterol Desirable: ??130 mg/dL Above Desirable: ??130-159 mg/dL Borderline High: ??160-189 mg/dL High: ??190-219 mg/dL Very High: ??Greater than or equal to 22 0 mg/dL Denise Woodson APRN SELLING UNDERWRITER LAB - BLOOD ORDERABLES Performing Organization Address City/State/ZIP Code Phon e Number [facility] [place], [place] [phone] [facility] [phone] [place] [address] Lab (no room number, 1st floor of clinic) [facility] [place], [place] [phone] [facility] [address] [facility] [facility] [address] Lab (no room number, 1st floor of clinic) documented in this encounter Visit Diagnoses Diagnosis Routine general medical examination at a health care facility - Primary Moderate persistent asthma without compl ication Unspecified asthma Insomnia, unspecified type CARDIOVASCULAR SCREENING; LDL GOAL LESS THAN 160 documented in this encounter Additional Health Concerns Assessment Noted Time PHQ-9 Depression Total Score: 0 06/23/2021 4:11 PM CDT documented as of this encounter Care Teams Director [employer] Relationship Specialty Start Date End Date Yung Madrigal MD PCP - Orthopaedics Orthopedics 08/26/12 RETIRED Winston Villatoro, AMELIE PCP - Ophthalmology Ophthalmology 02/11/13 [facility] [address] [place] [address] Denise Woodson Ra, TACTICAL/MOBILE WATCH OFFICER SELLING UNDERWRITER PCP - General Family Practice 09/21/20 [id number] [address] [id number] Denise Woodson Ra, TACTICAL/MOBILE WATCH OFFICER SELLING UNDERWRITER Assigned PCP 07/17/20 [id number] [address] [id number] documented as of this encounter
--- OUTSIDE RECORDS SUMMARY | 2022-08-29 12:08 | XMS_ITS | Encounter Summary ---
:1975 Author Organization [facility] Address [address] [place] [address]. [place] [address] Care Team Providers Name Role Phone Yung Madrigal MD Unavailable Unavailable Winston Villatoro OD Unavailable Denise Woodson Ra, APRN BUSINESS EXECUTIVE Unavailable [phone] Denise Woodson Ra, APRN BUSINESS EXECUTIVE Primary Care Provider [phone] Reason for Visit Diagnostic Imaging Ultrasound (Routine) - Pending Review Specialty Diagnoses / Procedures Referred By Contact Refer red To Contact Diagnoses Abnormal mammogram Denise Woodson Ra, APRN Procedures US Breast Right US Breast Left BUSINESS EXECUTIVE [address] [place] [address] Referral ID Status Reason Start Date Expiration Date Visits V isits Requested Authorized [id number] Pending 04/26/2022 04/26/2023 1 1 Review Encounter Details Date Type Department Care Team Description 05/01/2022 Hospital Encounter [facility] Denise Woodson Abnormal mammogram [place] [facility] BUSINESS EXECUTIVE [facility] [address] [place] [phone] Social History Tobacco Use Types Packs/Day Years [...] have Coronavirus/COVID-19? documented as of this encounter Medications at Time of Discharge Medication Sig Dispensed Refills Start Date End Date albuterol (PROAIR Inhale 2 puffs into 1 Inhaler 3 0 HFA/PROVENTIL HFA/VENTOLIN the lungs every 4 HFA) 108 (90 Base) MCG/ACT hours as needed for inhalerIndications: shortness of breath Moderate persistent asthma / dyspnea or without complication wheezing BREO ELLIPTA 200-25 INHALE 1 PUFF INTO 3 each 1 02/23/20 22 MCG/INH THE LUNGS DAILY InhalerIndications: Moderate persistent asthma without complication Chelated Magnesium 100 MG Take 100 mg by mouth 0 TABS At Bedtime cyclobenzaprine (FLEXERIL) Take 1 tablet (10 20 tablet 0 10 MG tabletIndications: mg) by mouth 3 times Neck muscle spasm daily as needed for muscle spasms fluticasone (FLONASE) 50 [place] 2 sprays into 16 g 3 MCG/ACT nasal both nostrils daily sprayIndications: Chronic rhinitis traZODone (DESYREL) 50 MG Take 2 tablets (100 180 tablet 3 1 09/26/2020 tabletIndications: mg) by mouth At Insomnia, unspecified type Bedtime documented as of this encounter Plan of Treatment Not on filedocumented as of this encounter Procedures Procedure Name Priority Date/Time Associated Diagnosis Comme nts US BREAST RIGHT Routine 05/01/2022 7:45 AM Abnormal mammogram Results for this LIMITED 1-3 CDT procedure are i n QUADRANTS the results section. documented in this encounter Results US Breast Right (05/01/2022 7:45 AM CDT) Anatomical Region Laterality Modality Breast Right Ultrasound Specimen (Source) Anatomical Location Collection Method / Collectio n Time Received Time / Laterality Volume Impressions 05/01/2022 8:15 AM CDT IMPRESSION: BI-RADS CATEGORY: 2 - Benign Finding(s). RECOMMENDED FOLLOW-UP: Annual Mammograph yVicenta PRYOR MD Narrative 05/01/2022 8:15 AM CDT US BREAST RIGHT LIMITED 1-3 QUADRANTS, 05/01/2022 8:14 AM HISTORY: ??Screening recall COMPARISON: ??04/25/2022 FINDINGS: ??Benign morphologically sabine l intramammary lymph node in the right breast at 10:00 9 cm from the nipple measures 1.0 x 0.4 x 0.5 cm and accounts for the mammographic mass. Procedure Note Rasta Pryor MD - 05/01/2022Fo rmatting of this note might be different from the original. US BREAST RIGHT LIMITED 1-3 QUADRANTS, 8:14 AM HISTORY: Screening recall COMPARISON: 04/25/2022 FINDINGS: Benign morphologically normal intramammary lymph node in the right breast at 10:00 9 cm from the nipple measures 1.0 x 0.4 x 0.5 cm and accounts for the mammographic mass. IMPRESSION: BI-RADS CATEGORY: 2 - Benign Finding(s). RECOMMENDED FOLLOW-UP: Annual Mammograph y. RASTA PRYOR MD Denise Woodson APRN, CNP [facility] US ORDERABLES documented in this encounter Visit Diagnoses Diagnosis Abnormal mammogram Abnormal mammogram, unspecified documented in this encounter Additional Health Concerns Assessment Noted Time PHQ-9 Depression Total Score: 0 06/23/2021 4:11 PM CDT documented as of this encounter Care Teams Air Tucker Relationship Specialty Start Date End Date Yung Madrigal MD PCP - Orthopaedics Orthopedics 08/26/12 RETIRED Winston Villatoro OD PCP - Ophthalmology Ophthalmology 02/11/13 [facility] [place] [address] [place] [address] Denise Woodson Ra, APRN CNP PCP - General Family Practice 09/21/20 [id number] [id number] Denise Woodson Ra, APRN CNP Assigned PCP 07/17/20 [id number] [address] [id number] documented as of this encounter
--- OUTSIDE RECORDS SUMMARY | 2022-08-29 12:08 | XMS_ITS | Clinical Summary ---
:1975 Author Organization [facility] [place] [address] Care Team Providers Name Role Phone Jennifer Poole Primary Care Provider [phone] Allergies Active Allergy Reactions Severity Noted Date Comments Acetaminophen-Codeine Nausea And Vomiting, 01/10/2022 Other - Describe In Comment Field Bupropion Other - Describe In 01/19/2011 Diarrhea and stomach Comment Field ache Erythromycin 07/04/2007 Mold Dizziness 08/22/2012 Pollen Extracts *Unknown 08/22/2012 Medications Medication Sig Dispensed Refills Start Date End Date Status cyclobenzaprine Take 1 tablet by 30 tablet 1 05/16/2012 Active (FLEXERIL) 10 mg mouth 3 times tabletIndications: daily. As needed Cervical disc syndrome for muscle spasm albuterol HFA Inhale 2 Puffs 1 Inhaler 0 01/13/2016 Active (PRO-AIR,VENTOLIN,PROVEN by mouth 4 times TIL) 90 mcg/actuation daily if needed. inhalerIndications: Mild persistent asthma with acute exacerbation ondansetron (ZOFRAN) 4 Take 1 tablet by 30 tablet 0 11/02/2019 Active mg tabletIndications: mouth every 8 Periumbilical pain hours if needed for Nausea/Vomiting. durable medical [phone] Plantar 1 Each 0 04/12/2021 Active equipment Fasciitis, night (DME)Indications: splint, Large Plantar fasciitis, bilateral Magnesium Amino Acid Take 100 mg by 0 Active Chelate 100 mg tab mouth. ketorolac (TORADOL) 10 Take 10 mg by 0 06/03/2021 Active mg tablet mouth every 6 hours if needed. LORazepam (ATIVAN) 0.5 as needed. 0 Active mg tab pantoprazole (PROTONIX) 0 06/09/2021 Active 40 mg delayed-release tablet fluticasone Inhale 1 Puff by 90 Each 3 03/07/2022 Active furoate-vilanteroL (Breo mouth once Ellipta) 200mcg/25mcg daily. inhalerIndications: BPD (bronchopulmonary dysplasia) traZODone (DESYREL) 100 Take 1 Tablet 90 Tablet 3 03/07/2022 Active mg tabletIndications: (100 mg) by Other insomnia mouth at bedtime. 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 Overview: bronchopulmonary dysplasia Cervical disc syndrome Fibromyalgia Encounters Date Type Specialty Care Team Description 08/23/2022 Lab Requisition Milli Houston MD from Last 3 Months Immunizations Name Administration Dates Next Due Hepatitis B, Unspecified 03/03/2012, 03/03/2012, 11/07/2011, 11/07/2011, 10/04/2011, 10/04/2011 Influenza Virus, Unspecified 07/11/2017, 07/02/2014, 013, 06/01/2013, 06/04/2012, 07/04/2007, 07/17/2006 Influenza, IIV3 (Age 6-35 mos) 06/01/2013, 06/04/2012 Influenza, IIV3 (Age >=3 years) 06/04/2012, 07/04/2007, 02/0 09/2005 Influenza, IIV4 06/23/2021, 07/27/2020, 06/15/2019, 08/07/2017, 07/11/2017 Pneumococcal Poly,23-Valent 03/16/2004 (Pneumovax) TD, UNSPECIFIED 02/14/2003 Td (Age >=7 Years) 04/05/2003, 02/14/2003 Td, Preservative Free (age >= 7 04/05/2003 Years) Tdap 01/04/2021, 01/26/2011 Tuberculin Skin Test, Unspecified 11/07/2011, 10/08/2011 Family History Medical History Relation Name Comments Unknown Father he was adopted, and young in [facility] Mother Relation Name Status Comments Father Mother Social History Tobacco Use Types Packs/Day Years Used Date Smoking Tobacco: Never Smokeless Tobacco: Never Tobacco Cessation: Counseling Given: Yes Alcohol Use Standard Drinks/Week Comments No 0 (1 standard drink = 0.6 oz pure alcoho l) Sex Assigned at Date Recorded Not on file Obstetrics History Last Filed Vital Signs Vital Sign Reading Time Taken Comments Blood Pressure 124/75 03/07/2022 3:45 PM CDT Pulse 60 03/07/2022 3:45 PM CDT Temperature 36.6 ??C (97.8 ??F) 01/10/2022 4:36 PM CDT Respiratory Rate - - Oxygen Saturation 98% 03/07/2022 3:45 PM CDT Inhaled Oxygen Concentration - - Weight 82 kg (180 lb 12.8 oz) 03/07/2022 3:45 PM CDT Height 174 cm (5' 8.5) 01/10/2022 4:36 PM CDT Body Mass Index 27.09 01/10/2022 4:36 PM CDT Plan of Treatment Health Maintenance Due Date Last Done Comments Depression screening for age 12+ 1988 HIV for age 15-65 1991 Hepatitis C screening for age 1209/10/1994 18-79 COVID-19 vaccine series (3 - 09/01/2021 07/07/2021, 021 Booster for Jose Antonio series) Colonoscopy through age 75 2021 Lipids for age 45-75 2021 08/03/2011 Mammogram for age 45-75 2021 Influenza for age 9-49 05/17/2022 06/23/2021, 07/27/2020, 06/15/2019, Additional history exists BMI (ht and wt on same day) for 01/10/2023 01/10/2022, 02/03/2020, age 18+ 01/13/2016 Tetanus booster 01/04/2031 01/04/2021, 01/26/2011, 04/05/2003, Additional history exists Tdap Completed 01/04/2021, 01/26/2011 Procedures Procedure Name Priority Date/Time Associated Diagnosis Comme nts LAB TRACKING EVENT Routine 08/23/2022 8:34 AM BOOKING CLERK PATH TISSUE EXAM Routine 08/23/2022 8:34 AM Resul ts for this BOOKING CLERK procedure are i n the results section. from Last 3 Months Results LAB TRACKING EVENT (08/23/2022 8:34 AM BOOKING CLERK) Specimen Anatomical Collection Method Collection Time Receive d Time (Source) Location / / Volume Laterality Other (Other) Client Collect / 08/23/2022 8:34 AM 04/2022 2:28 Unknown BOOKING CLERK PM BOOKING CLERK Milli Houston MD LAB BILL ONLY Performing Organization Address City/State/ZIP Code Phon e Number [id number] [place] [address] LABORATORY-CENTRAL 2000 LABORATORY PATH TISSUE EXAM (08/23/2022 8:34 AM BOOKING CLERK) Component Value Ref Test Analysis Performed At [facility] gist Range Method Time Signature Case Report Pathology Report ?Case: [id number] ? 08/24/2022 [facility] Authorizing Provider: ??Milli Houston MD ?? Collected: ? 08/23/2022 0834 ? 2:43 PM HEALTH Ordering Location: ? [facility] CENTRAL LAB ?Received: ?08/23/2022 1509 ? BOOKING CLERK AUGUSTO FRASERC Pathologist: ? Brandt Maier MD ? ENTRAL Specimen: ?Left Ovary, L ovary and bilateral fallopian tubes ? [facility] Final A) LEFT OVARY AND BILATERAL FALLOPIAN TUBES, LEFT OOPHORECTOMY AND BILATERAL SALPINGECTOMIES: 08/24/2022 [facility] E lectronically Diagnosis 1. Left ovary: Corpus luteum , benign epithelial inclusions and surface adhesions 2:43 PM HEALTH signed by 2. Left fallopian tube: Adhesions and benign paratubal cyst BOOKING CLERK LABORATORY-C Brandt Maier 3. Right fallopian tube: Non -fimbriated fallopian tube with hydrosalpinx, adhesions and a benign paratubal cyst ENT MARTHA Case MD on 4. Negative for malignancy LAB ORATORY 08/24/2022 at 2:43 PM Clinical Pelvic pain 08/24/2022 [facility] Information 2:43 PM HEALTH BOOKING CLERK LABORATORY-C ENTRAL LABORATORY Gross A) Received in formalin, lab eled with the patient's name and left ovary and bilateral fallopian tubes, is a 3 x 2.5 x 1.7 cm partially cystic focally disrupted and collapsed left ovary with a partiall 05/2022 [facility] Description y adhesed 4.5 x 1 cm fimbria cosme fallopian tube. On the external ovarian surface (inked green) is a 0.5 x 0.4 cm fibrous white surface nodule. On cut surface, there is a 2.3 x 1.9 cm hemorrhagic appearing cyst with a smooth lining and no excrescences. 2:43 PM HEALTH BOOKING CLERK LABORATORY-C The detached stated right fa llopian tube is a 4 x 2 x 1.7 cm esparza partially cystic vaguely nodular structure without fimbria. ??Cut surfaces disclose an dilated 1.2 cm long, 0.7 cm diameter possible dila ENTRAL cosme fallopian tube component with a disrupted possible 0.4 cm thin-walled paratubal cyst. ??No excrescences or suspicious foci are identified. LABORATORY Tank Worker sections are submitted in 10 cassettes: 1-3. Left fallopian tube, entire fimbria 4. ??Left ovary, surface fibrous nodule 5-7. Left ovary with cystic component 8-10. Entire right fallopian tube The specimen was placed in formalin at 0838 on 08/23/2022. LDW 08/23/2022 Microscopic The final 08/24/2022 [facility] Description diagnosis is 2:43 PM HEALTH based on BOOKING CLERK LABORATORY-C microscopic ENTRAL examination of LABORATORY appropriate sections of all specimens. Additional 08/24/2022 [facility] Information Interpreted at [facility], Central Laboratory - [address], [place] [address] 2:43 PM HEALTH BOOKING CLERK LABORATORY-C ENTRAL LABORATORY Specimen Anatomical Collection Method Collection Time Receive d Time (Source) Location / / Volume Laterality Other (Left 08/23/2022 8:34 AM 3:09 Ovary) BOOKING CLERK PM BOOKING CLERK Milli Houston MD PATHOLOGY/CYTOLOGY Performing Organization Address City/State/ZIP Code Phon e Number [facility] [employer] [address] [place] [address] LABORATORY-CENTRAL 2000 LABORATORY from Last 3 Months Insurance Payer Benefit Plan / Subscriber ID Effective Dates Phone Addre ss Type Group PREFERRED ONE PREFERRED ONE [id number] 2019-Present [address] [place] [address] [phone] (Work) Care Teams Ruby On Rails Engineer Relationship Specialty Start Date End Date Jennifer Poole PA PCP - General Physician Medical Records Tech 03/07/22 [address] [place] [address]
--- OUTSIDE RECORDS SUMMARY | 2022-08-29 12:08 | XMS_ITS | Encounter Summary ---
:1975 Author Organization [facility] Address [address] [place] [address] Care Team Providers Name Role Phone Yung Madrigal MD Unavailable Unavailable Winston Villatoro OD Unavailable Denise Woodson Ra, APRN SOFTWARE QUALITY SPECIALIST Unavailable [phone] Denise Woodson Ra, APRN SOFTWARE QUALITY SPECIALIST Primary Care Provider [phone] Reason for Visit Reason Onset Date Comments Flu Shot Imm/Inj 06/23/2021 Flu Shot Encounter Details Date Type Department Care Team Description 06/23/2021 Immunization [facility] Nee bob for prophylactic [place] vaccination and [address] [place] [place] [address] influenza (Primary Dx) [phone] Social History Tobacco Use Types Packs/Day Years [...] / COVID-19? documented as of this encounter Nursing Notes Azra Aquino CMA - 06/23/2021 4:00 PM CDT Flu shot given. See Immunization section for details. Azra Aquino CMA documented in this encounter Plan of Treatment Not on filedocumented as of this encounter Visit Diagnoses Diagnosis Need for prophylactic vaccination and in oculation against influenza - Primary documented in this encounter Additional Health Concerns Assessment Noted Time PHQ-9 Depression Total Score: 0 06/23/2021 4:11 PM CDT documented as of this encounter Care Teams Retail Sales Advisor Relationship Specialty Start Date End Date Yung Madrigal MD PCP - Orthopaedics Orthopedics 08/26/12 RETIRED Winston Villatoro OD PCP - Ophthalmology Ophthalmology 02/11/13 [facility] [place] [address] [facility] [address] [place] [address] Denise Woodson Ra, APRN SOFTWARE QUALITY SPECIALIST PCP - General Family Practice 09/21/20 [address] [place] [address] Denise Woodson Ra, APRN SOFTWARE QUALITY SPECIALIST Assigned PCP 07/17/20 [address] [place] [address] documented as of this encounter
--- OUTSIDE RECORDS SUMMARY | 2022-08-29 12:08 | XMS_ITS | Encounter Summary ---
:1975 Author Organization [facility] Address [address] [place] [address]. [place] [address] Care Team Providers Name Role Phone Yung Madrigal MD Unavailable Unavailable Winston Villatoro OD Unavailable Denise Woodson Ra DEMOGRAPHER HIV NURSE Unavailable [phone] Denise Woodson Ra DEMOGRAPHER HIV NURSE Primary Care Provider [phone] Reason for Visit Reason Comments Medication Refill Encounter Details Date Type Department Care Team Description 05/29/2021 Refill [facility] Denise Woodson Ra, Medication Refill [place] DEMOGRAPHER HIV NURSE [id number] [place] [address] [place], [place] [id number] (Wo rk) Social History Tobacco Use Types Packs/Day Years Used Date Smoking Tobacco: Never Smokeless Tobacco: Never Alcohol Use Standard Drinks/Week Comments Not Currently 0 (1 standard drink = 0.6 oz pure alcoho l) minimal Sex Assigned at Date Recorded Not on file documented as of this encounter Miscellaneous Notes Telephone Encounter - Tran Castro RN - 05/31/2021 9:56 AM CDT Denied Trazodone Trazodone ordered 07/13/2020 180, 3. Should be good until the end of terrance's both. Tran G., RN documented in this encounter Plan of Treatment Not on filedocumented as of this encounter Visit Diagnoses Diagnosis Insomnia, unspecified type documented in this encounter Additional Health Concerns Assessment Noted Time PHQ-9 Depression Total Score: 0 01/04/2021 9:31 AM CDT documented as of this encounter Care Teams Greenhouse Manager Relationship Specialty Start Date End Date Yung Madrigal MD PCP - Orthopaedics Orthopedics 08/26/12 RETIRED Winston Villatoro OD PCP - Ophthalmology Ophthalmology 02/11/13 [facility] [place] [address] [facility] [address] [place] [address] Denise Woodson Ra, APRN HIV NURSE PCP - General Family Practice 09/21/20 [id number] [id number] Denise Woodson Ra, APRN HIV NURSE Assigned PCP 07/17/20 [id number] [address] [id number] documented as of this encounter
--- OUTSIDE RECORDS SUMMARY | 2022-08-29 12:08 | XMS_ITS | Clinical Summary ---
:1975 Author Organization [facility] Address [address] [place] [address] Care Team Providers Name Role Phone Yung Madrigal MD Unavailable Unavailable Winston Villatoro OD Unavailable Denise Woodson Ra, APRN [employer] Unavailable [phone] Denise Woodson Ra, APRN [employer] MANAGER Primary Care Provider [phone] Allergies Active Allergy Reactions Severity Noted Date Comments Bupropion GI Disturbance, Other (See Low 01/19/2011 D iarrhea and stomach Comments) ache Erythromycin GI Disturbance Low 12/27/2005 Mold Dizziness, GI Disturbance 08/22/2012 Medications Medication Sig Dispensed Refills Start Date End Date Status cyclobenzaprine Take 1 tablet 20 tablet 0 06/12/2017 Active (FLEXERIL) 10 MG (10 mg) by mouth tabletIndications: Neck 3 times daily as muscle spasm needed for muscle spasms Chelated Magnesium 100 Take 100 mg by 0 Active MG TABS mouth At Bedtime fluticasone (FLONASE) [place] 2 sprays 16 g 3 06/15/2019 Active 50 MCG/ACT nasal into both sprayIndications: nostrils daily Chronic rhinitis albuterol (PROAIR Inhale 2 puffs 1 Inhaler 3 07/13/2020 Active HFA/PROVENTIL into the lungs HFA/VENTOLIN HFA) 108 every 4 hours as (90 Base) MCG/ACT needed for inhalerIndications: shortness of Moderate persistent breath / dyspnea asthma without or wheezing complication traZODone (DESYREL) 50 Take 2 tablets 180 tablet 3 07/27/2021 Active MG tabletIndications: (100 mg) by Insomnia, unspecified mouth At Bedtime type BREO ELLIPTA 200-25 INHALE 1 PUFF 3 each 1 02/22/2022 Active MCG/INH INTO THE LUNGS InhalerIndications: DAILY Moderate persistent asthma without complication Active Problems Problem Noted Date Moderate persistent asthma without complication 2018 Chronic rhinitis 06/15/2019 Mild recurrent major depression 06/15/2019 Insomnia, unspecified type 06/15/2019 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), predo minantly inattentive 02/07/2017 type BPD (bronchopulmonary dysplasia) 02/07/2017 Herniated cervical disc 02/07/2017 DDD (degenerative disc disease), cervical 02/07/2017 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 ASD (atrial septal defect) 02/07/2017 Chronic respiratory disease arising in the p eriod 04/21/2013 Rosacea 05/05/2012 Generalized anxiety disorder 10/08/2007 Resolved Problems Problem Noted Date Resolved Date Dysthymic disorder 10/08/2007 10/22/2007 Immunizations Name Administration Dates Next Due COVID-19 Vaccine (Jose Antonio) 11/20/2020 HepB 03/03/2012, 11/07/2011, 10/04/2011 Influenza (IIV3) PF 06/01/2013, 07/04/2007 Influenza Vaccine >6 months 06/23/2021, 07/27/2020, 06/15/20 19, (Alfuria,Fluzone) 07/11/2017 Mantoux Tuberculin Skin Test 11/07/2011, 10/08/2011 Pneumococcal 23 valent 03/16/2004 TD (ADULT, 7+) 04/05/2003 Tdap (Adacel,Boostrix) 01/04/2021, 01/26/2011 Family History Medical History Relation Comments Autoimmune Disease Cousin Cerebrovascular Disease Maternal Grandmother and great mater nal grandmother Alzheimer Disease No family hx of Anesthesia Reaction No family hx of Blood Disease No family hx of Breast Cancer No family hx of Cancer No family hx of Cancer - colorectal No family hx of Diabetes No family hx of Heart Disease No family hx of Hypertension No family hx of Thyroid Disease No family hx of reviewed 06/05/2006 Relation Status Comments Brother Alive x3 Cousin Father mva Maternal Grandmother Mother Alive Social History Tobacco Use Types Packs/Day Years Used Date Smoking Tobacco: Never Smokeless Tobacco: Never Tobacco Cessation: Counseling Given: No Alcohol Use Standard Drinks/Week Comments Not Currently 0 (1 standard drink = 0.6 oz pure alcoho l) minimal Sex Assigned at Date Recorded Not on file Last Filed Vital Signs Vital Sign Reading Time Taken Comments Blood Pressure 108/68 07/27/2021 8:28 AM [employer] Pulse 68 07/27/2021 8:28 AM [employer] Temperature 36.9 ??C (98.4 ??F) 07/27/2021 8:28 AM [employer] Respiratory Rate 12 07/27/2021 8:28 AM [employer] Oxygen Saturation 97% 07/27/2021 8:28 AM [employer] Inhaled Oxygen Concentration - - Weight 99.3 kg (219 lb) 07/27/2021 8:28 AM [employer] Height 174.6 cm (5' 8.75) 02/08/2021 10:22 AM CDT Body Mass Index 32.58 02/08/2021 10:22 AM CDT Plan of Treatment Health Maintenance Due Date Last Done Comments ADVANCE CARE PLANNING 1975 CT COLONOGRAPHY 1976 FIT-DNA (Cologuard) 1975 FIT 1975 FLEX SIG 1975 COLONOSCOPY 1986 COLORECTAL CANCER 1986 SCREENING HIV SCREENING 1991 HEPATITIS C SCREENING 1994 Pneumococcal Vaccine: 03/16/2005 03/16/2004 Pediatrics (0 to 5 Years) and At-Risk Patients (6 to 64 Years) (2 - PCV) COVID-19 Vaccine (3 - 09/01/2021 07/07/2021, 11/20/2020 Booster for Jose Antonio series) PHQ-9 12/22/2021 06/23/2021, 01/04/2021, 06/15/2019, Additional history exists ANNUAL REVIEW OF HM ORDERS 01/04/2022 01/04/2021 ASTHMA ACTION PLAN 01/04/2022 01/04/2021, 01/04/2021, 06/15/2019 INFLUENZA VACCINE (#1) 2022 06/23/2021, 07/27/2020, 06/15/2019, Additional history exists ASTHMA CONTROL TEST 07/25/2022 01/22/2022, 06/23/2021, 01/04/2021, Additional history exists YEARLY PREVENTIVE VISIT 07/27/2022 07/27/2021, 07/27/2020, 06/15/2019, Additional history exists MAMMO SCREENING 04/25/2023 04/25/2022, 12/07/2020, 02/07/2019, Additional history exists LIPID 07/27/2026 07/27/2021, 07/27/2020, 03/16/2008 DTAP/TDAP/TD IMMUNIZATION 01/04/2031 01/04/2021, 01/26/2011 , (5 - Td or Tdap) 04/05/2003, Additional history exists HEPATITIS B IMMUNIZATION Completed 03/03/2012, 03/03/2012, 11/07/2011, Additional history exists DEPRESSION ACTION PLAN Completed 01/04/2021, 01/04/2021 IPV IMMUNIZATION Aged Out No longer eligi ble based on patient 's age to complete this topic MENINGITIS IMMUNIZATION Aged Out No longe r eligible based on patient 's age to complete this topic PAP Discontinued Insurance Payer Benefit Plan / Subscriber ID Effective Phone Address T ype Group Dates PREFERREDONE PREFERREDONE [id number] 2021-09/15 [phone] [address] [id number] PPO [employer]EE /[address]21 [address] [place] [address] ([place]) [place] [address] Hank Appiah Employer 09/16/2010 [address] [address] [employer] (Home) ATTN ACCOUNTS [phone] PAYABLE (Work) [place] [address] [employer] Employ[employer] Employer 08/12/1988 ATTN A [employer] (Home) PAYABLE [phone] (Work) [address], [address] [place] [address] Care Teams Advertising Executive Relationship Specialty Start Date End Date Yung Madrigal MD PCP - Orthopaedics Orthopedics 08/26/12 RETIRED Winston Villatoro OD PCP - Ophthalmology Ophthalmology 02/11/13 [facility] [address] [facility] [address] [place] [address] Denise Woodson Ra, APRN [employer] MANAGER PCP - General Family Practice 09/21/20 [address] [place] [address] Denise Woodson Ra, APRN FIXED INCOME PORTFOLIO MANAGER Assigned PCP 07/17/20 [id number] [address] [id number]
--- OUTSIDE RECORDS SUMMARY | 2022-08-29 12:08 | XMS_ITS | Encounter Summary ---
:1975 Author Organization [facility] Address [address] [place] [address] Care Team Providers Name Role Phone Yung Madrigal MD Unavailable Unavailable Winston Villatoro OD Unavailable Denise Woodson Ra, APRN [employer] Unavailable [phone] Denise Woodson Ra, APRN [employer] Primary Care Provider [phone] Encounter Details Date Type Department Care Team Description 04/25/2022 Travel Social History Tobacco Use Types Packs/Day Years Used Date Smoking Tobacco: Never Smokeless Tobacco: Never Alcohol Use Standard Drinks/Week Comments Not Currently 0 (1 standard drink = 0.6 oz pure alcoho l) minimal Sex Assigned at Date Recorded Not on file COVID-19 Exposure Response Date Recorded In the last 10 days, have you been in contact with No / Unsu re 04/25/2022 4:41 PM CDT someone who was confirmed or suspected to have Coronavirus/COVID-19? documented as of this encounter Plan of Treatment Not on filedocumented as of this encounter Visit Diagnoses Not on filedocumented in this encounter Additional Health Concerns Assessment Noted Time PHQ-9 Depression Total Score: 0 06/23/2021 4:11 PM CDT documented as of this encounter Care Teams Advertising Statistical Clerk Relationship Specialty Start Date End Date Yung Madrigal MD PCP - Orthopaedics Orthopedics 08/26/12 RETIRED Winston Villatoro, OD PCP - Ophthalmology Ophthalmology 02/11/13 [facility] [address] [facility] [address] [place] [address] Denise Woodson Ra, BARRERA [employer] PCP - General Family Practice 09/21/20 [id number] [address] [id number] Denise Woodson Ra, APRN [employer] Assigned PCP 07/17/20 [id number] [place] [place] [id number] documented as of this encounter
--- OUTSIDE RECORDS SUMMARY | 2022-08-29 12:08 | XMS_ITS | Encounter Summary ---
:1975 Author Organization [place] Address [address] [place] [id number] Care Team Providers Name Role Phone Yung Madrigal MD Unavailable Unavailable Winston Villatoro OD Unavailable Denise Woodson Ra, APRN COMPLIANCE ADVISOR Unavailable [phone] Denise Woodson Ra, APRN COMPLIANCE ADVISOR Primary Care Provider [phone] Reason for Visit Auth/Cert Specialty Diagnoses / Procedures Referred By Contact Refer red To Contact Gastroenterology Diagnoses Change in voice Globus sensation Change in voice [R49.9] Globus sensation [R09.89] Rh Endoscopy Procedures HC UGI ENDOSCOPY DIAG W OR W/O BRUSH/WASH ESOPHAGOGASTRODUODENOSCOPY (EGD) [address] [place] [address] Phone: Fax: Referral ID Status Reason Start Date Expiration Date Visits Requ ested Visits Authorized [id number] 1 1 Encounter Details Date Type Department Care Team Description 02/08/2021 Hospital Encounter [facility] Ryne Miller Endoscopy Yanira Padilla MD [address] [place] [facility] [place], [place] [address] [id number] [address] [phone] [place], [place] [id number] (Wo rk) Social History Tobacco Use Types [...] Sign Reading Time Taken Comments Blood Pressure 116/75 02/08/2021 11:30 AM CDT Pulse 74 02/08/2021 11:30 AM CDT Temperature 36.2 ??C (97.1 ??F) 02/08/2021 10:31 AM CDT Respiratory Rate 10 02/08/2021 11:30 AM CDT Oxygen Saturation 95% 02/08/2021 11:40 AM CDT Inhaled Oxygen Concentration - - Weight 95.7 kg (211 lb) 02/08/2021 10:22 AM CDT Height 174.6 cm (5' 8.75) 02/08/2021 10:22 AM CDT Body Mass Index 31.39 02/08/2021 10:22 AM CDT documented in this encounter Discharge Instructions Discharge InstructionsSiYesenia adame RN - 02/08/2021 11:42 AM CDT The patient has received a copy of the Provation report the doctor has written and discharge instructions have been discussed with the patient and responsible adult. All questions were addressed and answered prior to patient discharge. AttachmentsThe following attachments cannot be sent through Care Everywhere.Acid Reflux, Tips to Control (Indonesian)Affects Your Throat, How Acid Reflux (Indonesian) GERD (Adult) (Indonesian)documented in this encounter Medications at Time of Discharge Medication Sig Dispensed Refills Start Date End Date albuterol (PROAIR Inhale 2 puffs into 1 Inhaler 3 0 HFA/PROVENTIL the lungs every 4 HFA/VENTOLIN HFA) 108 (90 hours as needed for Base) MCG/ACT shortness of breath inhalerIndications: / dyspnea or Moderate persistent wheezing asthma without complication Chelated Magnesium 100 MG Take 100 mg by 0 TABS mouth At Bedtime cyclobenzaprine Take 1 tablet (10 20 tablet 0 06/12/2017 (FLEXERIL) 10 MG mg) by mouth 3 tabletIndications: Neck times daily as muscle spasm needed for muscle spasms fluticasone (FLONASE) 50 Voss 2 sprays into 16 g 3 MCG/ACT nasal both nostrils daily sprayIndications: Chronic rhinitis fluticasone-vilanterol Inhale 1 puff into 1 Inhaler 6 07/1303/06/2021 (BREO ELLIPTA) 200-25 the lungs daily MCG/INH inhalerIndications: Moderate persistent asthma without complication traZODone (DESYREL) 50 MG Take 2 tablets (100 180 tablet 3 1 06/13/2021 tabletIndications: mg) by mouth At Insomnia, unspecified Bedtime type documented as of this encounter Plan of Treatment Not on filedocumented as of this encounter Procedures Procedure Name Priority Date/Time Associated Comments Diagnosis ESOPHAGOGASTRODUODENOSCOPY (EGD) 02/08/2021 10:3 0 Change in voice AM CDT Globus sensation Special Needs egd PS 01/12 LB(fv) UPPER GI ENDOSCOPY Routine 02/08/2021 10:26 AM CDT documented in this encounter Results UPPER GI ENDOSCOPY (02/08/2021 10:26 AM CDT) Component Value Ref Test Analysis Performed At [facility] Range Method Time Signature Upper GI [facility] RADIO LOGY Endoscopy RESULTS Patient Name: Alcon Zamora ?Proce dure Date: 02/08/2021 10:26 AM ? Accou nt Number: [id number] Date of : 1975 ? Admit Type: Outp atient Age: 45 ? Gender: Female Attending MD: Tuan Miller MD Total Sedation Time: 3 minutes of continous bedside 1:1 Instrument Name: 209 - Gastroscope ? Procedure: ?Upper GI endoscopy Indications: ?Globus sensation / Dysphoni a Providers: ?Tuan Miller MD (Doctor) Referring MD: ? Medicines: ?Fentanyl 100 micrograms IV, Midazolam 2 mg IV, ?Benzocaine spray, Sedation Administered by an ?Endoscopy Nurse, Sedative medications given in ?increments to maintain adequate moderate sedation Complications: ?No immediate complications. Procedure: ?Pre-Anesthesia Assessment: ?- Prior to the procedure, a History and Physical ?was performed, and patient medications and ?allergies were reviewed. The patient is competent. ?The risks and benefits of the procedure and the ?sedation options and risks were discussed with the ?patient. All questions were answered and informed ?consent was obtained. Patient identification and ?proposed procedure were verified by the physician ?and the nurse in the procedure room. Mental Status ?E xamination: alert and oriented. Airway ?Examination: normal oropharyngeal airway and neck ?mobility and Mallampati Class II (the uvula but not ?tonsillar pillars visualized). Respiratory ?Examination: clear to auscultation. CV Examination: ?normal. ASA Grade Assessment: II - A patient with ?mild systemic disease. After reviewing the risks ?a nd benefits, the patient was deemed in ?satisfactory condition to undergo the procedure. ?The anesthesia plan was to use moderate sedation / ?analgesia (conscious sedation). Immediately prior ?to administration of medications, the patient was ?re-assessed for adequacy to receive sedatives. The ?heart rate, respiratory rate, oxygen saturations, ?blood pressure, adequacy of pulmonary ventilation, ?and response to care were monitored throughout the ?procedure. The physical status of the patient was ?re-assessed after the procedure. ?- Immediately prior to administration of ?medications, the patient was re-assessed for ?adequacy to receive s edatives. ?After obtaining informed consent, the endoscope was ?passed under direct vision. Throughout the ?procedure, the patient's blood pressure, pulse, and ?oxygen saturations were monitored continuously. The ?Olympus Gastroscope, Model # GIF-H190, Endora # ?209, SN # [id number] was introduced through the mouth, ?and advanced to the second part of duodenum. The ?upper GI endoscopy was accomplished without ?difficulty. The patient tolerated the procedure ?well. ? Findings: ? The examined duodenum was normal. ? The entire examined stomach was normal. ? The cardia and gastric fundus were normal on retrofle xion. ? The Z-line was regular and was found 44 cm from the i ncisors. ? The examined esophagus was normal. ? Impression: ? - No specimens collected. Recommendation: ? - The patient jessica l be observed post-procedure, ?until all disch arge criteria are met. ?- Patient has a contact number available for ?emergencies. The signs and symptoms of potential ?delayed complications were discussed with the ?patient. Return to normal activities tomorrow. ?Written discharge instructions were provided to the ?patient. ?- GERD diet & lifesty le changes. ?- Minimize ibuprofen use. ?- Consider trail of twice daily PPI therpay for 3 ?m onths vs follow up with [facility] provider. ?- Follow up with ordering provider as secheuled. ? Tuan Miller MD 02/08/2021 11:19:28 AM I was physically present for the entire viewing portion of t he exam. Tuan Miller MD Number of Addenda: 0 Note Initiated On: 02/08/2021 10:26 AM MRN: ?[id number] Procedure Date: ? 02/08/2021 10:26:20 AM Total Procedure Duration: 0 hours 2 minutes 31 seconds Estimated Blood Loss: ? Scope In: 11:02:42 AM Scope Out: 11:05:13 AM Specimen (Source) Anatomical Collection Method Collection Time Re ceived Time Location / / Volume Laterality 02/08/2021 10:26 AM CDT Tuan Miller MD PROCEDURES Performing Organization Address City/State/ZIP Code Phon e Number RADIOLOGY RESULTS documented in this encounter Visit Diagnoses Not on filedocumented in this encounter Administered Medications Inactive Administered Medications - up to 3 most recent administrations Medication Order MAR Action Action Date Dose Rate Site benzocaine 20% Given 02/08/2021 11:02 AM CDT 1 spray (HURRICAINE/TOPEX) 20 % spray Mouth/Throat, PRN, Starting on Sat02/08/21 at 1102 fentaNYL (PF) (SUBLIMAZE) injection Given 02/08/2021 11:02 AM CDT 100 mcg Intravenous, PRN, Administer over 3-5 Minutes, Starting on Sat02/08/21 at 1102 lidocaine (LMX4) kit Topical, EVERY 1 HOUR PRN, pain, with VAD insertion, S tarting on Sat02/08/21 at 1023, Apply at least 30 minutes prior to VAD insertion in divided doses as needed for size of site for insertion. MAX Dose: 2.5 g (?? of 5 g tube) Do NOT give if patient has a history of allergy to any local anesthetic or any desirae product. Do NOT use both lidocaine intradermal/subcu taneous injection and the lidocaine cream on the same site., Pre-procedure lidocaine 1 % 0.1-1 mL 0.1-1 mL, Other, EVERY 1 HOUR PRN, mild pain with VAD insertion, Starting on Sat02/08/21 at 1023, MAX dose 1 mL subcutane ous OR intradermal along the side of the vein in divided doses as needed for VAD insertion. Do NOT give if patient has a history of allergy to any local anesthet ic or any desirae product. Do NOT use both lidocaine intradermal/subcutaneous injec tion and the lidocaine cream on the same site., Pre-procedure midazolam (VERSED) injection Given 02/08/2021 11:02 AM CDT 2 mg Intravenous, Administer over 2 Minutes, PRN, Starting on Sat02/08/21 at 1102 ondansetron (ZOFRAN) injection 4 mg 4 mg, Intravenous, ONCE PRN, nausea, vomiting, Adminis ter over 2-5 Minutes, Starting on Sat02/08/21 at 1023, For 1 d ose, Give in ENDO pre procedure prep area. Irritant. For ordered IV doses 0.1-4 mg, give IV Push undiluted over 2-5 minutes., Pre-procedure ondansetron (ZOFRAN) injection 4 mg 4 mg, Intravenous, EVERY 6 HOURS PRN, nausea, vomiting , Administer over 2-5 Minutes, Starting on Sat02/08/21 at 1116, This is Step 1 of nausea and vomiting management. If nausea not resolved in 15 minutes, go t o Step 2 prochlorperazine (COMPAZINE). Irritant. For ordered IV do ses 0.1-4 mg, give IV Push undiluted over 2-5 minutes. ondansetron (ZOFRAN-ODT) ODT tab 4 mg 4 mg, Oral, EVERY 6 HOURS PRN, nausea, v omiting, Starting on Sat02/08/21 at 1116, This is Step 1 of nausea and vomiting management. If n ausea not resolved in 15 minutes, go to Step 2 prochlorperazine (COMPAZINE). Do not push through foil backing. Peel back foil and gently remove. Place on to ngue immediately. Administration with liquid unnecessary W ith dry hands, peel back foil backing and gently remove tablet. Do not push oral d isintegrating tablet through foil backing. Administer immediately on tongue and oral disintegrati ng tablet dissolves in seconds, then swallow with saliva. Liquid not required . prochlorperazine (COMPAZINE) injection 1 0 mg 10 mg, Intravenous, EVERY 6 HOURS PRN, nausea, vomitin g, Administer over 1-2 Minutes, Starting on Sat02/08/21 at 1116, This is Step 2 of nausea and vomiting management. If nausea not resolved in 15 -30 minutes, Notify provider. For ordered IV doses 0.1-10 mg, give IV push undiluted, each 5 mg over 1 minute. prochlorperazine (COMPAZINE) tablet 10 m g 10 mg, Oral, EVERY 6 HOURS PRN, nausea, vomiting, Starting on Sat02/08/21 at 1116, This is Step 2 of nausea and vomiting ma nagement. If nausea not resolved in 15-30 minutes, Notify provider. sodium chloride (PF) 0.9% PF flush 3 mL 3 mL, Intracatheter, EVERY 8 HOURS, First dose on Sat02/08/21 at 1030, to lock peripheral IV dormant line, Pre-procedure sodium chloride (PF) 0.9% PF flush 3 mL 3 mL, Intracatheter, EVERY 1 MIN PRN, li ne flush, other, to ensure patency or to lock dormant line, Starting on Sat02/08/21 at 1023, Pr e-procedure sodium chloride (PF) 0.9% PF flush 3 mL 3 mL, Intravenous, EVERY 1 MIN PRN, line flush, after medication administration, Starting on Sat02/08/21 at 1023, For peripheral IV flu sh post IV meds, Pre-procedure documented in this encounter Active and Recently Administered Medications Times are shown in CDT. Scheduled Medication Order 02/06/2021 02/07/2021 02/08/2021 0.9% sodium chloride BOLUS 1030 (Canceled Entry - Provider: Orders Generic Provider - Comment: Automatically canceled at discontinue of medication order) Intravenous, 500 mL, ONCE, at 500 mL/hr, Administer over 1 Hours, Sat02/08/21 at 1030, For 1 dose, ~ For hypotension hypotensive (Systolic Blood Pressure less than 100 mmHg) prior to the procedure. Imme diately recheck Blood Pressure and if Sy stolic Blood Pressure still below 100 mmHg, give IV bolus. ~ For nausea/vomiting, give IV bolus. Notify Provider if IV bolus given., Pre-procedure sodium chloride (PF) 0.9% PF flush 3 mL 1030 (Canceled Entry - Provider: Orders Generic Provider - Comment: Automatically canceled at discontinue of medication order) 3 mL, Intracatheter, EVERY 8 HOURS, Firs t dose on Sat02/08/21 at 1030, to lock peripheral IV dormant line, Pre-procedure PRN Medication Order 02/06/2021 02/07/2021 02/08/2021 benzocaine 20% (HURRICAINE/TOPEX) 20 % spray (COMPLETED) 1102 (Given - Provider: Tuan Miller MD) Mouth/Throat, PRN, Starting Sat02/08/21 at 1102 fentaNYL (PF) (SUBLIMAZE) injection (COMPLETED) 1102 (Given - Provider: Alcon Singleton RN) Intravenous, PRN, Administer over 3-5 Minutes, Starting 02/08 at 1102 flumazenil (ROMAZICON) injection 0.2 mg 0.2 mg, Intravenous, EVERY 1 MIN PRN, be nzodiazepine reversal, over sedation, Administer over 1 Minutes, Starting Sat02/08/21 at 1116, For 12 hours, Give over 15 seconds. If inadequate response after 45 seconds, may repeat up to a MAX total d ose of 1 mg. Continue monitoring until discharge criteria are met for a minimum of 2 hours Irritant. For ordered IV doses 0.1-1 mg, give IV Push undiluted. Admini ster each 0.2mg over 15 seconds. Use wit h caution in patients on benzodiazepine therapy. lidocaine (LMX4) kit Topical, EVERY 1 HOUR PRN, pain, with VA D insertion, Starting Sat02/08/21 at 1023, Apply at least 30 minutes prior to VAD insertion in divided doses as needed for size of site for insertion. MAX Dose: 2 .5 g (?? of 5 g tube) Do NOT give if pat ient has a history of allergy to any local anesthetic or any desirae product. Do NOT use both lidocaine intradermal/subcutaneous injection and the lidocaine cream on the same site., Pre-procedure lidocaine 1 % 0.1-1 mL 0.1-1 mL, Other, EVERY 1 HOUR PRN, mild pain with VAD insertion, Starting Sat02/08/21 at 1023, MAX dose 1 mL subcutaneous OR intradermal along the side of the vein in divided doses as needed for VAD ins ertion. Do NOT give if patient has a his tory of allergy to any local anesthetic or any desirae product. Do NOT use both lidocaine intradermal/subcutaneous injection and the lidocaine cream on the same site., Pre-procedure May continue current IV fluid if patient has IV fluids infusing until discharge. CONTINUOUS PRN, Starting Sat02/08/21 at 1116, Until Sat02/08/21 at 1407 midazolam (VERSED) injection (COMPLETED) 1102 (Given - Provider: Alcon Singleton RN) Intravenous, Administer over 2 Minutes, PRN, Starting Sat 1 at 1102 naloxone (NARCAN) injection 0.2 mg 0.2 mg, Intravenous, EVERY 2 MIN PRN, op ioid reversal, Starting Sat02/08/21 at 1116, Administer intravenous route when available and notify provider when administered. For unintended sedation or respira tory depression if all of the below crit eria are met: ~ respiratory rate LESS than or EQUAL to 8. ~SaO2 less than 92% and or/end-tidal CO2 is greater than 50. ~ the patient is receiving an opioid, has u nintended sedations assessed as RASS (-3 ), and is currently not on mechanical ventilation. RASS scale moderate (-3) is movement or eye opening to voice but no eye contact. Patient Monitoring Once the pa tient has demonstrated a response to the naloxone, continue to monitor respiratory rate, depth, oxygen saturation and end-tidal CO2 (if available) every 15 minutes x 2, then every 30 minutes x 2, then e very 1 hour x 1 after each naloxone dose . Consider transfer to ICU if patient respiratory parameters have not improved after 4 naloxone doses. For ordered IV doses 0.1-2mg give IVP. Give each 0.4mg over 15 seconds in emergency situations. For non-emergent situations further dilute in 9mL of NS to facilitate titration of response. naloxone (NARCAN) injection 0.2 mg 0.2 mg, Intramuscular, EVERY 2 MIN PRN, opioid reversal, Starting Sat02/08/21 at 1116, Administer intramuscular if an intravenous route is not available and notify provider when administered. For uninte nded sedation or respiratory depression if all of the below criteria are met: ~ respiratory rate LESS than or EQUAL to 8. ~SaO2 less than 92% and or/end-tidal CO2 is greater than 50. ~ the patient is re ceiving an opioid, has unintended sedati ons assessed as RASS (-3), and is currently not on mechanical ventilation. RASS scale moderate (-3) is movement or eye opening to voice but no eye contact. Patien t Monitoring Once the patient has demons trated a response to the naloxone, continue to monitor respiratory rate, depth, oxygen saturation and end-tidal CO2 (if available) every 15 minutes x 2, then ever y 30 minutes x 2, then every 1 hour x 1 after each naloxone dose. Consider transfer to ICU if patient respiratory parameters have not improved after 4 naloxone doses. For ordered IV doses 0.1-2mg give I [employer]ER. Give each 0.4mg over 15 seconds in e mergency situations. For non-emergent situations further dilute in 9mL of NS to facilitate titration of response. naloxone (NARCAN) injection 0.4 mg 0.4 mg, Intravenous, EVERY 2 MIN PRN, op ioid reversal, Starting Sat02/08/21 at 1116, Administer intravenous route when available and notify provider when administered. For unintended sedation or respira tory depression if all of the below crit eria are met: ~ respiratory rate LESS than or EQUAL to 8. ~ SaO2 less than 92% and or/end-tidal CO2 is greater than 50. ~ the patient is receiving an opioid, has unintended sedation assessed as RASS (-4 ) or (-5) and patient is currently not on mechanical ventilation. RASS scale (-4) is deep sedation with no response to voice but movement or eye opening to physic al stimulation. RASS scale (-5) is unaro usable. Patient Monitoring Once the patient has demonstrated a response to the naloxone, continue to monitor respiratory rate, depth, oxygen saturation and end-ti maryellen CO2 (if available) every 15 minutes x 2, then every 30 minutes x 2, then every 1 hour x 1 after each naloxone dose. Consider transfer to ICU if patient respiratory parameters have not improved after 4 naloxone doses. For ordered IV doses 0.1-2mg give IVP. Give each 0.4mg over 15 seconds in emergency situations. For non-emergent situations further dilute in 9mL of NS to facilitate titration of response. naloxone (NARCAN) injection 0.4 mg 0.4 mg, Intramuscular, EVERY 2 MIN PRN, opioid reversal, Starting Sat02/08/21 at 1116, Administer intramuscular if an intravenous route is not available and notify provider when administered. For uninte nded sedation or respiratory depression if all of the below criteria are met: ~ respiratory rate LESS than or EQUAL to 8. ~ SaO2 less than 92% and or/end-tidal CO2 is greater than 50. ~ the patient is r eceiving an opioid, has unintended sedat ion assessed as RASS (-4) or (-5) and patient is currently not on mechanical ventilation. RASS scale (-4) is deep sedation with no response to voice but movement or eye opening to physical stimulation. RASS scale (-5) is unarousable. Patient Monitoring Once the patient has demonstrated a response to the naloxone, continue to monitor respiratory rate, depth, oxyg en saturation and end-tidal CO2 (if avai lable) every 15 minutes x 2, then every 30 minutes x 2, then every 1 hour x 1 after each naloxone dose. Consider transfer to ICU if patient respiratory parameters have not improved after 4 naloxone dose s. For ordered IV doses 0.1-2mg give IVP. Give each 0.4mg over 15 seconds in emergency situations. For non-emergent situations further dilute in 9mL of NS to facilitate titration of response. ondansetron (ZOFRAN) injection 4 mg 4 mg, Intravenous, ONCE PRN, nausea, vom iting, Administer over 2-5 Minutes, Starting Sat02/08/21 at 1023, For 1 dose, Give in ENDO pre procedure prep area. Irritant. For ordered IV doses 0.1-4 mg, give IV Push undiluted over 2-5 minutes., Pre-procedure ondansetron (ZOFRAN) injection 4 mg(Linked Group 1) 4 mg, Intravenous, EVERY 6 HOURS PRN, na usea, vomiting, Administer over 2-5 Minutes, Starting Sat02/08/21 at 1116, This is Step 1 of nausea and vomiting management. If nausea not resolved in 15 minutes, go to Step 2 prochlorperazine (COMPAZIN E). Irritant. For ordered IV doses 0.1-4 mg, give IV Push undiluted over 2-5 minutes. ondansetron (ZOFRAN-ODT) ODT tab 4 mg(Linked Group 1) 4 mg, Oral, EVERY 6 HOURS PRN, nausea, v omiting, Starting Sat02/08/21 at 1116, This is Step 1 of nausea and vomiting management. If nausea not resolved in 15 minutes, go to Step 2 prochlorperazine (COMP AZINE). Do not push through foil backing . Peel back foil and gently remove. Place on tongue immediately. Administration with liquid unnecessary With dry hands, peel back foil backing and gently remove t ablet. Do not push oral disintegrating t ablet through foil backing. Administer immediately on tongue and oral disintegrating tablet dissolves in seconds, then swallow with saliva. Liquid not required. prochlorperazine (COMPAZINE) injection 10 mg(Linked Group 2) 10 mg, Intravenous, EVERY 6 HOURS PRN, n ausea, vomiting, Administer over 1-2 Minutes, Starting 02/08/21 at 1116, This is Step 2 of nausea and vomiting management. If nausea not resolved in 15-30 magy lillian, Notify provider. For ordered IV dos es 0.1-10 mg, give IV push undiluted, each 5 mg over 1 minute. prochlorperazine (COMPAZINE) tablet 10 mg(Linked Group 2) 10 mg, Oral, EVERY 6 HOURS PRN, nausea, vomiting, Starting Sat02/08/21 at 1116, This is Step 2 of nausea and vomiting management. If nausea not resolved in 15- 30 minutes, Notify provider. sodium chloride (PF) 0.9% PF flush 3 mL 3 mL, Intracatheter, EVERY 1 MIN PRN, li ne flush, other, to ensure patency or to lock dormant line, Starting Sat02/08/21 at 1023, Pre-procedure sodium chloride (PF) 0.9% PF flush 3 mL 3 mL, Intravenous, EVERY 1 MIN PRN, line flush, after medication administration, Starting Sat02/08/21 at 1023, For peripheral IV flush post IV meds, Pre-procedure sodium chloride (PF) 0.9% PF flush 3 mL 3 mL, Intravenous, EVERY 1 MIN PRN, line flush, after medication administration. For peripheral IV flush post IV meds, Starting Sat02/08/21 at 1116 Linked Groups Order Group 1: ondansetron (ZOFRAN-ODT) ODT tab 4 mgJump to med 4 mg, Oral, EVERY 6 HOURS PRN, nausea, v omiting, Starting Sat02/08/21 at 1116
This is Step 1 of nausea and vomiting management. If nausea not resolved in 15 minutes, go to St ep 2 prochlorperazine (COMPAZINE). Do no t push through foil backing. Peel back foil and gently remove. Place on tongue immediately. Administration with liquid unnecessary With dry hands, peel b ack foil backing and gently remove table t. Do not push oral disintegrating tablet through foil backing. Administer immediately on tongue and oral disintegrating tablet dissolves in seconds, then swallow with saliva. Liquid not required.
Or ondansetron (ZOFRAN) injection 4 mgJump to med 4 mg, Intravenous, EVERY 6 HOURS PRN, na usea, vomiting, Administer over 2-5 Minutes, Starting Sat02/08/21 at 1116
This is Step 1 of nausea and vomiting management. If nausea not resolved in 15 minutes, go to Step 2 prochlorperazine (COMPAZINE). Irritant. For ordered IV doses 0.1-4 mg, give IV Push undiluted over 2-5 minutes.
Group 2: prochlorperazine (COMPAZINE) injection 10 mgJump to med 10 mg, Intravenous, EVERY 6 HOURS PRN, n ausea, vomiting, Administer over 1-2 Minutes, Starting 02/08/21 at 1116
This is Step 2 of nausea and vomiting management. If nausea not reso lved in 15-30 minutes, Notify provider.& nbsp;For ordered IV doses 0.1-10 mg, give IV push undiluted, each 5 mg over 1 minute.
Or prochlorperazine (COMPAZINE) tablet 10 mgJump to med 10 mg, Oral, EVERY 6 HOURS PRN, nausea, vomiting, Starting 02/08/21 at 1116
This is Step 2 of nausea and vomiting management. If nausea not resolved in 15-30 minutes, Notify provider.
documented in this encounter Additional Health Concerns Assessment Noted Time PHQ-9 Depression Total Score: 0 01/04/2021 9:31 AM CDT documented as of this encounter Care Teams Out Of School Hours Care Worker Relationship Specialty Start Date End Date Yung Madrigal MD PCP - Orthopaedics Orthopedics 08/26/12 RETIRED Winston Villatoro, AMELIE PCP - Ophthalmology Ophthalmology 02/11/13 [facility] [address] [facility] [address] [place] [address] Denise Woodson Ra, BARRERA COMPLIANCE ADVISOR PCP - General Family Practice 09/21/20 [id number] [place] [id number] Denise Woodson Ra, APRN COMPLIANCE ADVISOR Assigned PCP 07/17/20 [id number] [place] [id number] documented as of this encounter
--- OUTSIDE RECORDS SUMMARY | 2022-08-29 12:08 | XMS_ITS | Encounter Summary ---
:1975 Author Organization [place] Address [address] [place] [address] Care Team Providers Name Role Phone Yung Madrigal MD Unavailable Unavailable Winston Villatoro OD Unavailable Denise Woodson Ra, APRN STORE STOCK HELP Unavailable [phone] Denise Woodson Ra, APRN STORE STOCK HELP Primary Care Provider [phone] Reason for Visit Auth/Cert Specialty Diagnoses / Procedures Referred By Contact Refer red To Contact Gastroenterology Diagnoses Change in voice Globus sensation Change in voice [R49.9] Globus sensation [R09.89] Rh Endoscopy Procedures HC UGI ENDOSCOPY DIAG W OR W/O BRUSH/WASH ESOPHAGOGASTRODUODENOSCOPY (EGD) [address] [place] [address] Phone: Fax: Referral ID Status Reason Start Date Expiration Date Visits Requ ested Visits Authorized [id number] 1 1 Encounter Details Date Type Department Care Team Description 02/08/[address] [facility] Angela, ESOPHAGOGA STRODUODENOSCOPY (EGD) Endoscopy Tuan Padilla MD [address] [facility] [place] [address] [address] [phone] [place], [place] [address] Surgery Details Date/Time Status Location OR Service Patient Class Case Case Trauma Class Type Case? 02/08/21 Posted [facility] GI GI C Gastroenterology Outpatient 10:30 AM Panel 1 Procedure LRB Anes Op Region Wound Class Commen ts ESOPHAGOGASTRODUODENOSCOPY N/A Conscious Mouth II-Clean (EGD) Sedation Contaminated Surgeon Surgeon Role Service Panel Tuan Miller MD Primary Gastroenterology 1 Special Needs egd PS 4/29 LB(fv) documented in this encounter Social History Tobacco Use Types Packs/Day Years [...] Sign Reading Time Taken Comments Blood Pressure 104/60 02/08/2021 11:00 AM CDT Pulse 90 02/08/2021 11:00 AM CDT Temperature 36.2 ??C (97.1 ??F) 02/08/2021 10:31 AM CDT Respiratory Rate 23 02/08/2021 11:00 AM CDT Oxygen Saturation 99% 02/08/2021 11:00 AM CDT Inhaled Oxygen Concentration - - Weight 95.7 kg (211 lb) 02/08/2021 10:22 AM CDT Height 174.6 cm (5' 8.75) 02/08/2021 10:22 AM CDT Body Mass Index 31.39 02/08/2021 10:22 AM CDT documented in this encounter Discharge Instructions Discharge InstructionsYesenia Berry RN - 02/08/2021 11:42 AM CDT The patient has received a copy of the Provation report the doctor has written and discharge instructions have been discussed with the patient and responsible adult. All questions were addressed and answered prior to patient discharge. AttachmentsThe following attachments cannot be sent through Care Everywhere.Acid Reflux, Tips to Control (Palauan)Affects Your Throat, How Acid Reflux (Palauan) GERD (Adult) (Palauan)documented in this encounter Medications at Time of [...] needed for muscle spasms fluticasone (FLONASE) 50 [place] 2 sprays into 16 g 3 MCG/ACT [...] CDT Globus sensation Special Needs egd PS 4/29 LB(fv) UPPER GI ENDOSCOPY Routine 02/08/2021 10:26 AM CDT documented in this encounter Results UPPER GI ENDOSCOPY (02/08/2021 10:26 AM CDT) Component Value Ref Test Analysis Performed At [facility] Range Method Time Signature Upper GI [facility] RADIO LOGY Endoscopy RESULTS Patient Name: Alcon Zamora ?Ksenia zhao Date: 02/08/2021 10:26 AM ? Accou nt Number: [id number] Date of : 1975 ? Admit Type: [...] # [id number], Endora # ?[id number], SN # [id number] was introduced through the mouth, ?and advanced [...] Note Initiated On: 02/08/2021 10:26 AM MRN: ?[id number] Procedure Date: ? 02/08/2021 10:26:20 AM Total [...] RESULTS documented in this encounter Visit Diagnoses Diagnosis Change in voice Other voice and resonance disorders Globus sensation Gastrointestinal malfunction arising fro m mental factors documented in this encounter Administered Medications Inactive Administered [...] For ordered IV doses 0.1-2mg give I WELLNESS NURSE RN. Give each 0.4mg over 15 seconds in [...] ausea, vomiting, Administer over 1-2 Minutes, Starting Sat02/08/21 at 1116, This is [...] usea, vomiting, Administer over 2-5 Minutes, Starting 02/08/21 at 1116
This is Step 1 of [...] documented as of this encounter Care Teams Puller Out Relationship Specialty Start Date End Date Yung Madrigal MD PCP - Orthopaedics Orthopedics 08/26/12 RETIRED Winston Villatoro, OD PCP - Ophthalmology Ophthalmology 02/11/13 [facility] [address] [facility] [address] [place] [address] Denise Woodson Ra, DIRECTOR PATIENT ACCOUNTING STORE STOCK HELP PCP - General Family Practice 09/21/20 [id number] [place] [id number] Denise Woodson Ra, DIRECTOR PATIENT ACCOUNTING STORE STOCK HELP Assigned PCP 07/17/20 [address] [place] [address] documented as of this encounter
--- OUTSIDE RECORDS SUMMARY | 2022-08-29 12:08 | XMS_ITS | Encounter Summary ---
:1975 Author Organization [place] Address [address] [place] [address]. [place] [address] Care Team Providers Name Role Phone Yung Madrigal MD Unavailable Unavailable Winston Villatoro OD Unavailable Denise Woodson Ra LICENSED JOURNEYMAN ELECTRICIAN LEGAL SERVICES MANAGER Unavailable [phone] Denise Woodson Ra LICENSED JOURNEYMAN ELECTRICIAN LEGAL SERVICES MANAGER Primary Care Provider [phone] Reason for Visit Reason Comments Medication Refill Encounter Details Date Type Department Care Team Description 05/02/2021 Refill [facility] Denise Woodson Ra, Medication Refill [place] LICENSED JOURNEYMAN ELECTRICIAN LEGAL SERVICES MANAGER [address] [address] [place] [address] [place], [place] [id number] (Wo rk) Social History Tobacco Use Types Packs/Day Years Used Date Smoking Tobacco: Never Smokeless Tobacco: Never Alcohol Use Standard Drinks/Week Comments Not Currently 0 (1 standard drink = 0.6 oz pure alcoho l) minimal Sex Assigned at Date Recorded Not on file documented as of this encounter Miscellaneous Notes Telephone Encounter - Kati Yang RN - 05/03/2021 4:30 PM CDT Prescription approved per [facility] Refill Protocol. Kati Yang RN documented in this encounter Plan of Treatment Not on filedocumented as of this encounter Visit Diagnoses Diagnosis Moderate persistent asthma without compl ication Unspecified asthma documented in this encounter Additional Health Concerns Assessment Noted Time PHQ-9 Depression Total Score: 0 01/04/2021 9:31 AM CDT documented as of this encounter Care Teams Puller Over Relationship Specialty Start Date End Date Yung Madrigal MD PCP - Orthopaedics Orthopedics 08/26/12 RETIRED Winston Villatoro, AMELIE PCP - Ophthalmology Ophthalmology 02/11/13 [facility] [address] [facility] [address] [place] [address] Denise Woodson Ra, APRN LEGAL SERVICES MANAGER PCP - General Family Practice 09/21/20 [id number] [place] [id number] Denise Woodson Ra, APRN LEGAL SERVICES MANAGER Assigned PCP 07/17/20 [id number] [place] [id number] documented as of this encounter
--- OUTSIDE RECORDS SUMMARY | 2022-08-29 12:08 | XMS_ITS | Encounter Summary ---
:1975 Author Organization [place] Address [address] [place] [address] Care Team Providers Name Role Phone Yung Madrigal MD Unavailable Unavailable Winston Villatoro OD Unavailable Denise Woodson Ra, APRN HOSPICE MUSIC THERAPIST Unavailable [phone] Denise Woodson Ra, APRN HOSPICE MUSIC THERAPIST Primary Care Provider [phone] Encounter Details Date Type Department Care Team Description 02/05/2021 Hospital Encounter [facility] [place] Miller for [facility] Laboratory Tuan Padilla, screening for other [address] [place] MD viral diseases [facility] [address] GASTEROENTEROLOGY [phone] [place] [address] Social History Tobacco Use Types Packs/Day Years Used Date Smoking Tobacco: Never Smokeless Tobacco: Never Alcohol Use Standard Drinks/Week Comments Yes 0 (1 standard drink = 0.6 oz pure alcoho l) minimal Sex Assigned at Date Recorded Not on file documented as of this encounter Medications at [...] needed for muscle spasms fluticasone (FLONASE) 50 [place] 2 sprays into 16 g 3 MCG/ACT nasal both nostrils daily sprayIndications: Chronic rhinitis fluticasone-vilanterol Inhale 1 puff into 1 Inhaler 6 07/1303/06/2021 (BREO ELLIPTA) 200-25 the lungs daily MCG/INH inhalerIndications: Moderate persistent asthma without complication ibuprofen 200 MG Take 200 mg by 0 01/15 capsuleIndications: Other mouth every 4 hours orthopedic as needed aftercare(V54.89) traZODone (DESYREL) 50 MG Take 2 tablets (100 180 tablet 3 1 06/13/2021 tabletIndications: mg) by mouth At Insomnia, unspecified Bedtime type documented as of this encounter Plan of Treatment Not on filedocumented as of this encounter Procedures Procedure Name Priority Date/Time Associated Diagnosis Comme nts SARS-COV-2 Routine 02/05/2021 11:25 AM Encounter for Results for this (COVID-19) VIRUS CDT screening for other proc edure are in RT-PCR viral diseases the results section. COVID-19 VIRUS Routine 02/05/2021 11:25 AM Encounter for Resul ts for this (CORONAVIRUS) BY CDT screening for other proc edure are in PCR viral diseases the results section. documented in this encounter Results SARS-CoV-2 COVID-19 Virus (Coronavirus) by PCR (02/05/2021 11:25 AM CDT) [facility] Method Time Signature SARS-CoV-2 Nasopharyngeal 02/05/2021 [facility] Virus 6:54 PM CDT [facility] SARS-CoV-2 NEGATIVE 02/05/2021 [facility] PCR Result 6:54 PM CDT [facility] Comment: SARS-CoV2 (COVID-19) RNA not de tected, presumed negative. SARS-CoV-2 PCR Testing was performed using the [employer] Xpress SARS-CoV-2 Assay on the [employer] Gene-Xpert 02/05/2021 6:54 PM [facility] Comment Instrument Systems. Addition al information about this Emergency Use Authorization (EUA) [facility] assay can be found via the Lab Guide. [facility] Comment: This test should be ordered for the dete ction of SARS-CoV-2 in individuals who meet SARS-CoV-2 clinical and/or epidemi ological criteria. Test performance is unknown in asymptomatic patients. This test is for in vitro diagnostic use under the FDA EUA for laboratories certified under CLIA to perform high com plexity testing. This test has not been FDA cleared or approved. A negative result does not rule out the presence of PCR inhibitors in the specimen or target RNA in concentration below the limit of detection for the assay. The possibility of a false negati ve should be considered if the patient's recent exposure or clinical pr esentation suggests COVID-19. This test was validated by the [facility] Infectious Diseases Diagnostic Laboratory. This laboratory i s certified under the Clinical Laboratory Improvement Amendments of 198 8 (CLIA-88) as qualified to perform high complexity laboratory testing. Specimen (Source) Anatomical Collection Method Collection Time Re ceived Time Location / / Volume Laterality Specimen from 02/05/2021 11:25 02/05/2021 nasopharyngeal AM CDT 11:26 AM CDT structure (specimen) Tuan Miller MD LAB - MICRO GENERAL ORDER NASRIN Performing Organization Address City/State/ZIP Code Phon e Number [id number] [place] [address] Asymptomatic COVID-19 Virus (Coronavirus) by PCR (02/05/2021 11:25 AM CDT) Component Value Ref Test Analysis Performed At [facility] gist Range Method Time Signature COVID-19 Nasopharyngeal 02/05/2021 [place] Virus PCR to 11:27 AM [facility] Source COVID-19 Test received-See 02/05/2021 INFECTIOUS Virus PCR to reflex to IDDL 3:59 PM CDT [facility] [place] - test SARS CoV2 DIAGNOSTIC Result (COVID-19) Virus LABORATORY, RT-PCR [facility] Specimen (Source) Anatomical Collection Method Collection Time Re ceived Time Location / / Volume Laterality Specimen from 02/05/2021 11:25 02/05/2021 nasopharyngeal AM CDT 11:26 AM CDT structure (specimen) Tuan Miller MD LAB - MICRO GENERAL ORDER NASRIN Performing Organization Address City/State/ZIP Code Phon e Number INFECTIOUS DISEASES [address] [place] [address] DIAGNOSTIC LABORATORY, [facility] [address] [place], [place] [address] [facility] [phone] documented in this encounter Visit Diagnoses Diagnosis Encounter for screening for other viral diseases documented in this encounter Additional Health Concerns Assessment Noted Time PHQ-9 Depression Total Score: 0 01/04/2021 9:31 AM CDT documented as of this encounter Care Teams Inspector Radar And Electronics Relationship Specialty Start Date End Date Yung Madrigal MD PCP - Orthopaedics Orthopedics 08/26/12 RETIRED Winston Villatoro OD PCP - Ophthalmology Ophthalmology 02/11/13 [facility] [address] [facility] [address] [place] [address] Denise Woodson Ra, APRN HOSPICE MUSIC THERAPIST PCP - General Family Practice 09/21/20 [address] [place] [address] Denise Woodson Ra, APRN HOSPICE MUSIC THERAPIST Assigned PCP 07/17/20 [address] [place] [id number] documented as of this encounter
--- OUTSIDE RECORDS SUMMARY | 2022-08-29 12:08 | XMS_ITS | Encounter Summary ---
:1975 Author Organization [place] Address [address] [place] [address]. [place] [address] Care Team Providers Name Role Phone Yung Madrigal MD Unavailable Unavailable Winston Villatoro OD Unavailable Denise Woodson Ra, APRN STRUCTURAL METAL WORKER Unavailable [phone] Denise Woodson Ra, APRN STRUCTURAL METAL WORKER Primary Care Provider [phone] Reason for Visit Diagnostic Imaging Mammo (Routine) - Pending Review Specialty Diagnoses / Procedures Referred By Contact Refer red To Contact Diagnoses Visit for screening mammogram Denise Woodson Ra, APRN Procedures MA Screen Bilateral w/Flo MA Screening Digital Bilateral STRUCTURAL METAL WORKER [address] [place] [address] Referral ID Status Reason Start Date Expiration Date Visits V isits Requested Authorized [id number] Pending 04/10/2022 04/10/2023 1 1 Review Encounter Details Date Type Department Care Team Description 04/25/2022 [facility] Denise Woodson Visit for screening Procedure Clinic Kavon Gonsales APRN CNP mammogram [address] [address] [facility] [address] [place], [place] PRIMO Jacobson [phone] Social History Tobacco Use Types Packs/Day Years [...] Name Priority Date/Time Associated Diagnosis Comme nts MA SCREENING Routine 04/25/2022 5:03 PM Visit for screening Re sults for this BILATERAL W/ FLO CDT mammogram procedure are in the results section. documented in this encounter Results MA Screen Bilateral w/Flo (04/25/2022 5:03 PM CDT) Anatomical Region Laterality Modality Breast Bilateral Mammography Specimen (Source) Anatomical Location Collection Method / Collectio n Time Received Time / Laterality Volume Impressions 04/26/2022 7:41 AM CDT IMPRESSION: BI-RADS CATEGORY: 0 - Incomplete - Need Additional Imaging Evaluation and/or Prior Mammograms for C omparison. RECOMMENDED FOLLOW-UP: Ultrasound. Recommend targeted ultrasound. Exam results letter mailed to patient. IRMA HOWELL MD Narrative 04/26/2022 7:41 AM CDT SCREENING MAMMOGRAM, BILATERAL, DIGITAL w/CAD AND TOMOSYNTHESIS - 04/25/2022 5:03 PM. BREAST SYMPTOMS: No current breast compl aints. COMPARISON: ??Prior mammograms in 2020 a 2018. BREAST DENSITY: Heterogeneously dense. COMMENTS: No findings of suspicion for m alignancy in the left breast. There is an oval mass in the right uppe r posterior, likely bilateral, breast, possibly representing a lymph no de. Procedure Note Irma Howell MD - 04/26/2022 SCREENING MAMMOGRAM, BILATERAL, DIGITAL w/CAD AND TOMOSYNTHESIS - 04/25/2022 5:03 PM. BREAST SYMPTOMS: No current breast compl aints. COMPARISON: Prior mammograms in 2020 and 2018. BREAST DENSITY: Heterogeneously dense. COMMENTS: No findings of suspicion for m alignancy in the left breast. There is an oval mass in the right uppe r posterior, likely bilateral, breast, possibly representing a lymph no de. IMPRESSION: BI-RADS CATEGORY: 0 - Incomp lete - Need Additional Imaging Evaluation and/or Prior Mammograms for C omparison. RECOMMENDED FOLLOW-UP: Ultrasound. Recommend targeted ultrasound. Exam results letter mailed to patient. IRMA HOWELL MD Denise Woodson APRN, CNP IMG MAMMOGRAPHY ORDERABLES documented in this encounter Visit Diagnoses Diagnosis Visit for screening mammogram Other screening mammogram documented in this encounter Additional Health Concerns Assessment Noted Time PHQ-9 Depression Total Score: 0 06/23/2021 4:11 PM CDT documented as of this encounter Care Teams Machine I Trimmer Relationship Specialty Start Date End Date Yung Madrigal MD PCP - Orthopaedics Orthopedics 08/26/12 RETIRED Winston Villatoro OD PCP - Ophthalmology Ophthalmology 02/11/13 [facility] [place] [address] [facility] [address] [place] [address] Denise Woodson Ra, APRN CNP PCP - General Family Practice 09/21/20 [id number] [place] [id number] Denise Woodson Ra, APRN CNP Assigned PCP 07/17/20 [id number] [place] [id number] documented as of this encounter
--- OUTSIDE RECORDS SUMMARY | 2022-08-29 12:08 | XMS_ITS | Encounter Summary ---
:1975 Author Organization [place] Address [address] [place] [address] Care Team Providers Name Role Phone Yung Madrigal MD Unavailable Unavailable Winston Villatoro OD Unavailable Denise Woodson Ra, APRN GEOLOGY FACULTY MEMBER Unavailable [phone] Denise Woodson Ra, APRN GEOLOGY FACULTY MEMBER Primary Care Provider [phone] Encounter Details Date Type Department Care Team Description 01/25/2021 Orders Only [facility] Tuan Miller for Endoscopy [place] MD Randy screening for other [address] [place] viral diseases [place], [place] [address] [address] [phone] [place] [address] (Wo rk) Social History Tobacco Use Types [...] Not on filedocumented as of this encounter Results Asymptomatic COVID-19 Virus (Coronavirus) by PCR (02/05/2021 11:25 AM CDT) Component Value Ref Test Analysis Performed At Patholo gist Range Method Time Signature COVID-19 Nasopharyngeal 02/05/2021 [place] Virus PCR to 11:27 AM [facility] [place] [facility] Source COVID-19 Test received-See 02/05/2021 INFECTIOUS Virus PCR to reflex to IDDL 3:59 PM CDT [facility] [place] - test SARS CoV2 DIAGNOSTIC Result (COVID-19) Virus LABORATORY, RT-PCR [facility] Specimen (Source) Anatomical Collection Method Collection Time Re ceived Time Location / / Volume Laterality Specimen from 02/05/2021 11:25 02/05/2021 nasopharyngeal AM CDT 11:26 AM CDT structure (specimen) Tuan Miller MD LAB - MICRO GENERAL ORDER NASRIN Performing Organization Address City/State/ZIP Code Phon e Number INFECTIOUS DISEASES [address] [place] [address] DIAGNOSTIC LABORATORY, [facility] [address] [id number] [facility] [phone] documented in this encounter Visit Diagnoses Diagnosis Encounter for screening for other viral diseases documented in this encounter Additional Health Concerns Assessment Noted Time PHQ-9 Depression Total Score: 0 01/04/2021 9:31 AM CDT documented as of this encounter Care Teams Logistics Team Lead Relationship Specialty Start Date End Date Yung Madrigal MD PCP - Orthopaedics Orthopedics 08/26/12 RETIRED Winston Villatoro, AMELIE PCP - Ophthalmology Ophthalmology 02/11/13 [facility] [address] [facility] [address] [place] [address] Denise Woodson Ra, APRN GEOLOGY FACULTY MEMBER PCP - General Family Practice 09/21/20 [address] [place] [address] Denise Woodson Ra, APRN GEOLOGY FACULTY MEMBER Assigned PCP 07/17/20 [address] [place] [address] documented as of this encounter
--- OUTSIDE RECORDS SUMMARY | 2022-08-29 12:08 | XMS_ITS | Encounter Summary ---
:1975 Author Organization [place] Address [address] [place] [address]. [place] [address] Care Team Providers Name Role Phone Yung Madrigal MD Unavailable Unavailable Winston Villatoro OD Unavailable Denise Woodson Ra ALUMINUM MOLDING MACHINE OPERATOR AMF MECHANIC Unavailable [phone] Denise Woodson Ra ALUMINUM MOLDING MACHINE OPERATOR AMF MECHANIC Primary Care Provider [phone] Reason for Visit Reason Comments Medication Refill Encounter Details Date Type Department Care Team Description 02/19/2022 Refill [facility] Denise Woodson Ra, Medication Refill [place] ALUMINUM MOLDING MACHINE OPERATOR AMF MECHANIC [address] [address] [place] [address] [place], [place] [id number] (Wo rk) Social History Tobacco Use Types Packs/Day Years Used Date Smoking Tobacco: Never Smokeless Tobacco: Never Alcohol Use Standard Drinks/Week Comments Not Currently 0 (1 standard drink = 0.6 oz pure alcoho l) minimal Sex Assigned at Date Recorded Not on file documented as of this encounter Miscellaneous Notes Telephone Encounter - Shawna Barlow RN - 02/20/2022 11:54 AM CDT Images from the original note were not included. Routing refill request to provider for review/approval because: Inhaled Steroids Protocol Failed 02/19/2022 03:47 AM Protocol Details Recent (6 mo) or future (30 days) visit within the authorizing provider's specialty Shawna Barlow RN documented in this encounter Plan of Treatment Not on filedocumented as of this encounter Visit Diagnoses Diagnosis Moderate persistent asthma without compl ication Unspecified asthma documented in this encounter Additional Health Concerns Assessment Noted Time PHQ-9 Depression Total Score: 0 06/23/2021 4:11 PM CDT documented as of this encounter Care Teams Neonatal Doctor Relationship Specialty Start Date End Date Yung Madrigal MD PCP - Orthopaedics Orthopedics 08/26/12 RETIRED Winston Villatoro OD PCP - Ophthalmology Ophthalmology 02/11/13 [facility] [address] [facility] [address] [place] [address] Denise Woodson Ra, APRN AMF MECHANIC PCP - General Family Practice 09/21/20 [address] [place] [id number] Denise Woodson Ra, APRN AMF MECHANIC Assigned PCP 07/17/20 [address] [place] [id number] documented as of this encounter
--- OUTSIDE RECORDS SUMMARY | 2022-08-29 12:09 | XMS_ITS | Encounter Summary ---
:1975 Author Organization [facility] Address [address] [place] [address] Care Team Providers Name Role Phone Yung Madrigal MD Unavailable Unavailable Winston Villatoro OD Unavailable Westley Bates MD Unavailable SerumClara MD Primary Care Provider [phone] Clara Cornell MD Unavailable [phone] SerumClara MD Unavailable [phone] Reason for Visit Diagnostic Imaging Mammo - Closed Specialty Diagnoses / Procedures Referred By Contact Refer red To Contact Diagnoses Encounter for screening mammogram for malignant neoplasm of breast Clara Cornell MD Procedures MA Screen Bilateral w/Flo [facility] [address] [place] [address] Referral ID Status Reason Start Date Expiration Date Visits Requ ested Visits Authorized [id number] Closed 12/05/2017 12/05/2018 1 1 Encounter Details Date Type Department Care Team Description 12/05/2017 Radiant Appointment [facility] Clara Cornelluntronald for Clinic Kavon Garland MD screening mammogram [address] [place]ON neoplasm of breast [address] [place] [address] [place], [place] [phone] [address] Social History Tobacco Use Types Packs/Day Years [...] Associated Diagnosis Comme nts MA SCREENING Routine 12/05/2017 10:27 AM Encounter for Results for this BILATERAL W/ FLO CDT screening mammogram pro cedure are in for malignant the results neoplasm of breast section. documented in this encounter Results MA Screen Bilateral w/Flo (12/05/2017 10:27 AM CDT) Anatomical Region Laterality Modality Breast Bilateral Mammography Specimen (Source) Anatomical Location Collection Method / Collectio n Time Received Time / Laterality Volume Impressions 12/05/2017 2:16 PM CDT IMPRESSION: BI-RADS CATEGORY: 1 - ??Negative RECOMMENDED FOLLOW-UP: Annual Mammograph y. Exam results letter mailed to patient. VLAD GOMEZ MD Narrative 12/05/2017 2:16 PM CDT SCREENING MAMMOGRAM, BILATERAL, DIGITAL w/CAD AND TOMOSYNTHESIS - 12/05/2017 10:27 AM BREAST SYMPTOMS: No current breast compl aints. COMPARISON: ??10/26/2016. BREAST DENSITY: Heterogeneously dense. COMMENTS: No findings of suspicion for m alignancy. Procedure Note Vlad Gomez MD - 12/05/2017For matting of this note might be different from the original. SCREENING MAMMOGRAM, BILATERAL, DIGITAL w/CAD AND TOMOSYNTHESIS - 12/05/2017 10:27 AM BREAST SYMPTOMS: No current breast compl aints. COMPARISON: 10/26/2016. BREAST DENSITY: Heterogeneously dense. COMMENTS: No findings of suspicion for m alignancy. IMPRESSION: BI-RADS CATEGORY: 1 - Negati ve RECOMMENDED FOLLOW-UP: Annual Mammograph y. Exam results letter mailed to patient. VLAD GOMEZ MD Clara Cornell MD IMSilviano MAMMOGRAPHY ORDERABLES documented in this encounter Visit Diagnoses Diagnosis Encounter for screening mammogram for ma lignant neoplasm of breast Other screening mammogram documented in this encounter Additional Health Concerns Assessment Noted Time PHQ-9 Depression Total Score: 0 02/08/2017 7:29 AM CDT documented as of this encounter Care Teams Dowel Sticker Operator Relationship Specialty Start Date End Date Yung Madrigal MD PCP - Orthopaedics Orthopedics 08/26/12 RETIRED Winston Villatoro, AMELIE PCP - Ophthalmology Ophthalmology 02/11/13 [facility] [address] [facility] [address] [place] [address] Westley Bates MD PCP - ENT Otolaryngology 05/14/13 07/28/18 XXX RETIRED XXX [address] [facility] [address] [place] [address] Serum, Clara Garland MD PCP - General Internal Medicine 02/07/17 09/20/20 Serum, Clara Garland MD PCP - Assigned PCP 01/17/17 11/18/18 [facility] [address] [place] [address] [id number] SerumClara MD Assigned PCP 01/17/17 07/16/[address] [id number] documented as of this encounter
--- OUTSIDE RECORDS SUMMARY | 2022-08-29 12:09 | XMS_ITS | Encounter Summary ---
:1975 Author Organization [place] Address [address] [place] [address] Care Team Providers Name Role Phone Yung Madrigal MD Unavailable Unavailable Winston Villatoro OD Unavailable Westley Bates MD Unavailable Serum, Clara Garland MD Primary Care Provider Serum, Clara Garland MD Unavailable [phone] Serum, Clara Garland MD Unavailable [phone] Encounter Details Date Type Department Care Team Description 06/12/2017 Office Visit [facility] Laly Mancini icagrey (Primary Dx); Clinic Kavon Cooney PA-C Neck muscle spasm; [address] [facility] [address] [place] [address] [place] [address] Social History Tobacco Use Types Packs/Day Years Used Date Smoking Tobacco: Never Smokeless Tobacco: Never Alcohol Use Standard Drinks/Week Comments Yes 0 (1 standard drink = 0.6 oz pure alcoho l) minimal Sex Assigned at Date Recorded Not on file documented as of this encounter Last Filed Vital Signs Vital Sign Reading Time Taken Comments Blood Pressure 120/68 06/12/2017 2:01 PM CDT Pulse 79 06/12/2017 2:01 PM CDT Temperature 36.4 ??C (97.6 ??F) 06/12/2017 2:01 PM CDT Respiratory Rate 16 06/12/2017 2:01 PM CDT Oxygen Saturation 98% 06/12/2017 2:01 PM CDT Inhaled Oxygen Concentration - - Weight 95.4 kg (210 lb 4.8 oz) 06/12/2017 2:01 PM CDT Height 172.7 cm (5' 8) 06/12/2017 2:01 PM CDT Body Mass Index 31.98 06/12/2017 2:01 PM CDT documented in this encounter Patient Instructions Patient InstructionsLaly Mancini PA-C - 06/12/2017 1:50 PM CDT Continue with heat/ice Find a comfortable position Start medrol dose petrona---take in the AM with food Begin flexeril as needed (this may make you drowsy) vicodin as needed for breakthrough pain Continue with ibuprofen three times daily with food Call if symptoms persist--->ortho documented in this encounter Progress Notes Laly Mancini PA-C - 06/12/2017 1:50 PM CDT SUBJECTIVE: Alcon Zamora is a 41 year old female who presents to clinic today for the following health issues: Neck Pain Onset: three weeks ago History of chronic neck pain Ibuprofen, heat, massage and symptoms improved with flares Patient went tubing and symptoms began thereafter --same position x 3 hours ?? Description: Location: Left side Radiation: into the left neck, upper back ?? Intensity: severe ?? Progression of Symptoms: Worsening ?? worsening as day progresses ?? Accompanying Signs & Symptoms: Burning, prickly sensation (paresthesias) in arm(s): YES- worse in the left Numbness in arm(s): YES- bilateral left is worse Weakness in arm(s): no Fever: no Headache: YES- intermittent Nausea and/or vomiting: YES-nausea Right hand dominant ?? History: Trauma: no Previous neck pain: YES Previous surgery or injections: no Previous Imaging (MRI,X ray): YES--2013 xray/MRI at [facility] due to similar symptoms ?? Precipitating factors: Does movement increase the pain: YES Head feels heavy and neck feels weak ?? Alleviating factors: Ice and heat and laying down takes pressure off the neck Therapies Tried and outcome: Chiropractor with no relief ROS: Otherwise NEGATIVE. OBJECTIVE: BP 120/68 (BP Location: Right arm, Patient Position: Chair, Cuff Size: Adult Large) Pulse 79 Temp 97.6 ??F (36.4 ??C) (Oral) Resp 16 Ht 5' 8 (1.727 m) Wt 210 lb 4.8 oz (95.4 kg) LMP 01/07/2006 SpO2 98% BMI 31.98 kg/m2 Body mass index is 31.98 kg/(m^2). GENERAL: alert, no distress Cervical Spine Exam: Inspection: rigid cervical spine Tender: left medial border of scapula, left paracervical muscles, right paracervical muscles, left trapezius muscles Range of Motion: flexion: unable, painful, extension: unable, left lateral rotation: unable, right lateral rotation: decreased, painful Strength: Full strength of all neck muscles and UE symmetrical bilaterally Special tests: Reproduction of radicular pattern Diagnostic test results: No results found for this or any previous visit (from the past 24 hour(s)). ASSESSMENT/PLAN: (M54.2) Cervicalgia (primary encounter diagnosis) Comment: with radiculopathy and intermittent paresthesias. Begin oral steroid and flexeril PRN. Heat/ice and gentle stretching. Proceed with physical therapy. norco PRN severe pain. Patient was in agreement with plan. Call if symptoms persist and will proceed with ortho consultation. Plan: methylPREDNISolone (MEDROL DOSEPAK) 4 MG tablet, HYDROcodone-acetaminophen (NORCO) 5-325 MG per tablet (M62.838) Neck muscle spasm Comment: Plan: cyclobenzaprine (FLEXERIL) 10 MG tablet (R20.2) Paresthesia Comment: Plan: See Patient Instructions [facility] documented in this encounter Nursing Notes Natalie Beltrán MA - 06/12/2017 1:50 PM CDT No chief complaint on file. Initial BP 120/68 (BP Location: Right arm, Patient Position: Chair, Cuff Size: Adult Large) Pulse 79 Temp 97.6 ??F (36.4 ??C) (Oral) Resp 16 Ht 5' 8 (1.727 m) Wt 210 lb 4.8 oz (95.4 kg) LMP 01/07/2006 SpO2 98% BMI 31.98 kg/m2 Estimated body mass index is 31.98 kg/(m^2) as calculated from the following: Height as of this encounter: 5' 8 (1.727 m). Weight as of this encounter: 210 lb 4.8 oz (95.4 kg). Medication Reconciliation: complete Natalie Beltrán CMA (AAWI) documented in this encounter Plan of Treatment Not on filedocumented as of this encounter Visit Diagnoses Diagnosis Cervicalgia - Primary Neck muscle spasm Spasm of muscle Paresthesia Disturbance of skin sensation documented in this encounter Additional Health Concerns Assessment Noted Time PHQ-9 Depression Total Score: 0 02/08/2017 7:29 AM CDT documented as of this encounter Care Teams Cutter Grinder Operator Relationship Specialty Start Date End Date Yung Madrigal MD PCP - Orthopaedics Orthopedics 08/26/12 RETIRED Winston Villatoro, AMELIE PCP - Ophthalmology Ophthalmology 02/11/13 [facility] [address] [facility] [address] [place] [address] Westley Bates MD PCP - ENT Otolaryngology 05/14/13 07/28/18 XXX RETIRED XXX [address] [place] [address] Clara Cornell MD PCP - General Internal Medicine 02/07/17 09/20/20 Clara Cornell MD PCP - Assigned PCP 01/17/17 11/18/[address] [address] Serum, Clara Garland MD Assigned PCP 01/17/17 07/16/20 [facility] [address] [place] [address] documented as of this encounter
--- OUTSIDE RECORDS SUMMARY | 2022-08-29 12:09 | XMS_ITS | Encounter Summary ---
:1975 Author Organization [facility] Address [address] [place] [address] Care Team Providers Name Role Phone Yung Madrigal MD Unavailable Unavailable Winston Villatoro OD Unavailable Serum, Clara Garland MD Primary Care Provider [phone] Denise Woodson Ra FLORIST'S DECORATOR [employer]UD[facility] Unavailable [phone] Encounter Details Date Type Department Care Team Description 08/12/2020 Orders Only [facility] kocytosis, unspecified [facility] type [id number] [place] [address] Social History Tobacco Use Types Packs/Day Years Used Date Smoking Tobacco: Never Smokeless Tobacco: Never Alcohol Use Standard Drinks/Week Comments Yes 0 (1 standard drink = 0.6 oz pure alcoho l) minimal Sex Assigned at Date Recorded Not on file COVID-19 Exposure Response Date Recorded In the last month, have you been in contact with No / Unsure 08/12/2020 4:13 PM FOUNDER / CEO someone who was confirmed or suspected to have Coronavirus / COVID-19? documented as of this encounter Plan of Treatment Not on filedocumented as of this encounter Procedures Procedure Name Priority Date/Time Associated Diagnosis Comme nts CBC WITH PLATELETS & Routine 08/12/2020 4:14 PM Leukocytosis, Results for this DIFFERENTIAL FOUNDER / CEO unspecified type procedure a re in the results section. documented in this encounter Results CBC with platelets and differential (08/12/2020 4:14 PM FOUNDER / CEO) [facility] Method Time Signature WBC 8.8 4.0 - 08/12/2020 [facility] 11.0 4:21 PM FOUNDER / CEO CLINICS 10e9/L [place] RBC Count 4.64 3.8 - 5.2 08/12/2020 [facility] 10e12/L 4:21 PM FOUND[facility] [place] Hemoglobin 14.0 11.7 - 08/12/2020 [facility] 15.7 g/dL 4:21 PM [facility] [place] Hematocrit 43.3 35.0 - 08/12/2020 [facility] 47.0 % 4:21 PM FOUND[facility] / CEO [facility] [place] MCV 93 78 - 100 08/12/2020 [facility] fl 4:21 PM FOUND[facility] CEO [facility] [place] MCH 30.2 26.5 - 08/12/2020 [facility] 33.0 pg 4:21 PM [facility]OUND[facility] CEO [facility] [place] MCHC 32.3 31.5 - 08/12/2020 [facility] 36.5 g/dL 4:21 PM FOUND[facility] CEO [facility] [place] RDW 11.9 10.0 - 08/12/2020 [facility] 15.0 % 4:21 PM [facility] [place] Platelet Count 213 150 - 450 08/12/2020 [facility] 10e9/L 4:21 PM [facility] [place] % Neutrophils 60.1 % 08/12/2020 [facility] 4:21 PM [facility] [place] % Lymphocytes 29.8 % 08/12/2020 [facility] 4:21 PM [facility] [place] % Monocytes 6.6 % 08/12/2020 [facility] 4:21 PM [facility] [place] % Eosinophils 3.2 % 08/12/2020 [facility] 4:21 PM [facility] [place] % Basophils 0.3 % 08/12/2020 [facility] 4:21 PM [facility] [place] Absolute 5.3 1.6 - 8.3 08/12/2020 [facility] Neutrophil 10e9/L 4:21 PM [facility] CEO [facility] [place] Absolute 2.6 0.8 - 5.3 08/12/2020 [facility] Lymphocytes 10e9/L 4:21 PM [facility] [place] Absolute 0.6 0.0 - 1.3 08/12/2020 [facility] Monocytes 10e9/L 4:21 PM [facility]OUND[facility] CEO [facility] [place] Absolute 0.3 0.0 - 0.7 08/12/2020 [facility] Eosinophils 10e9/L 4:21 PM F[facility] CEO [facility] [place] Absolute 0.0 0.0 - 0.2 08/12/2020 [facility] Basophils 10e9/L 4:21 PM FOUND[facility] / CEO [facility] [place] Diff Method Automated 08/12/2020 [facility] Method 4:21 PM [facility] [address] [place] Specimen Anatomical Collection Method Collection Time Receive d Time (Source) Location / / Volume Laterality Blood specimen 08/12/2020 4:14 PM 020 4:15 (specimen) FOUNDER / CEO PM FOUNDER / CEO Denise Woodson APRN STUD[facility] - BLOOD ORDERABLES Performing Organization Address City/State/ZIP Code Phon e Number [facility] [id number] [address] [place], [place] [address] documented in this encounter Visit Diagnoses Diagnosis Leukocytosis, unspecified type documented in this encounter Additional Health Concerns Assessment Noted Time PHQ-9 Depression Total Score: 0 06/15/2019 7:09 PM CDT documented as of this encounter Care Teams Armhole Feller Handstitching Machine Relationship Specialty Start Date End Date Yung Madrigal MD PCP - Orthopaedics Orthopedics 08/26/12 RETIRED Winston Villatoro, OD PCP - Ophthalmology Ophthalmology 02/11/13 [facility] [place] [address] [facility] [address] [place] [address] Clara Cornell MD PCP - General Internal Medicine 02/07/17 09/20/20 Denise Woodson Ra, APRN Assigned PCP 07/17/20 [facility] [address] [facility] [place] [address] documented as of this encounter
--- OUTSIDE RECORDS SUMMARY | 2022-08-29 12:09 | XMS_ITS | Encounter Summary ---
:1975 Author Organization [facility] Address [address] [place] [address] Care Team Providers Name Role Phone Yung Madrigal MD Unavailable Unavailable Winston Villatoro OD Unavailable Serum, Clara Garland MD Primary Care Provider [phone] Serum, Clara Garland MD Unavailable [phone] Reason for Visit Reason Onset Date Comments Refill Request 06/16/2020 [facility] ELLIPTA 200-25 MCG/INH Inhaler Refill Request 06/16/2020 traZODone (DESYREL) 50 MG tablet Encounter Details Date Type Department Care Team Description 06/16/2020 Refill [facility] Serum, Clara Refill R equest ([facility] Kavon Garland MD ELLIPTA 200-25 MCG/INH [address] [facility] Inhaler); Refill Request [facility] (traZODone (DESYREL) [address] MG tablet) [place] [address] [place] [address] (Wo rk) Social History Tobacco Use Types Packs/Day Years Used Date Smoking Tobacco: Never Smokeless Tobacco: Never Alcohol Use Standard Drinks/Week Comments Yes 0 (1 standard drink = 0.6 oz pure alcoho l) minimal Sex Assigned at Date Recorded Not on file documented as of this encounter Miscellaneous Notes Telephone Encounter - Layne Dunham RN - 06/17/2020 10:43 AM CDT Routing to Denise to review. The Pt is scheduled to see you in [address] Cornell Pt. Layne Dunham, GEMA [facility] -- Triage Nurse documented in this encounter Plan of Treatment Not on filedocumented as of this encounter Visit Diagnoses Diagnosis Moderate persistent asthma without compl ication Unspecified asthma Insomnia, unspecified type documented in this encounter Additional Health Concerns Assessment Noted Time PHQ-9 Depression Total Score: 0 06/15/2019 7:09 PM CDT documented as of this encounter Care Teams Mis Manager Relationship Specialty Start Date End Date Yung Madrigal MD PCP - Orthopaedics Orthopedics 08/26/12 RETIRED Winston Villatoro, AMELIE PCP - Ophthalmology Ophthalmology 02/11/13 [facility] [address] [facility] [address] [place] [address] Clara Cornell MD PCP - General Internal Medicine 02/07/17 09/20/20 Clara Cornell MD Assigned PCP 01/17/17 07/16/[address] [address] documented as of this encounter
--- OUTSIDE RECORDS SUMMARY | 2022-08-29 12:09 | XMS_ITS | Encounter Summary ---
:1975 Author Organization [facility] Address [address] [place] [address] Care Team Providers Name Role Phone Yung Madrigal MD Unavailable Unavailable Winston Villatoro OD Unavailable Serum, Clara Garland MD Primary Care Provider [phone] Serum, Clara Garland MD Unavailable [phone] Encounter Details Date Type Department Care Team Description 07/13/2020 Travel Social History Tobacco Use Types Packs/Day Years Used Date Smoking Tobacco: Never Smokeless Tobacco: Never Alcohol Use Standard Drinks/Week Comments Yes 0 (1 standard drink = 0.6 oz pure alcoho l) minimal Sex Assigned at Date Recorded Not on file COVID-19 Exposure Response Date Recorded In the last month, have you been in contact with Yes 07/13/2020 1:36 PM CDT someone who was confirmed or suspected to have Coronavirus / COVID-19? documented as of this encounter Plan of Treatment Not on filedocumented as of this encounter Visit Diagnoses Not on filedocumented in this encounter Additional Health Concerns Assessment Noted Time PHQ-9 Depression Total Score: 0 06/15/2019 7:09 PM CDT documented as of this encounter Care Teams Director Life Relationship Specialty Start Date End Date Yung Madrigal MD PCP - Orthopaedics Orthopedics 08/26/12 RETIRED Winston Villatoro, OD PCP - Ophthalmology Ophthalmology 02/11/13 [facility] [address] [facility] [address] [place] [address] Clara Cornell MD PCP - General Internal Medicine 02/07/17 09/20/20 Clara Cornell MD Assigned PCP 01/17/17 07/16/[address] [address] documented as of this encounter
--- OUTSIDE RECORDS SUMMARY | 2022-08-29 12:09 | XMS_ITS | Encounter Summary ---
:1975 Author Organization [facility] Address [address] [place] [address] Care Team Providers Name Role Phone Yung Madrigal MD Unavailable Unavailable Winston Villatoro OD Unavailable Serum, Clara Garland MD Primary Care Provider [phone] Serum, Clara Garland MD Unavailable Reason for Referral Diagnostic Imaging XR (Routine) - Closed Specialty Diagnoses / Procedures Referred By Contact Refer red To Contact Diagnoses Cough Joya Merchant, Procedures XR Chest 2 [address] [place] [address] Referral ID Status Reason Start Date Expiration Date Visits Requ ested Visits Authorized [id number] Closed 06/22/2019 06/21/2020 1 1 Reason for Visit Reason Comments Urgent Care Cough cough/chills/sore throat/ he dache/neck pain X8 days Encounter Details Date Type Department Care Team Description [facility] [place] PA-C Sore throat [address] [place] [address] [address] [place] [address] [phone] Social History Tobacco Use Types Packs/Day Years Used Date Smoking Tobacco: Never Smokeless Tobacco: Never Alcohol Use Standard Drinks/Week Comments Yes 0 (1 standard drink = 0.6 oz pure alcoho l) minimal Sex Assigned at Date Recorded Not on file documented as of this encounter Last Filed Vital Signs Vital Sign Reading Time Taken Comments Blood Pressure 118/74 06/22/2019 3:14 PM CDT Pulse 74 06/22/2019 3:14 PM CDT Temperature 36.8 ??C (98.3 ??F) 06/22/2019 3:14 PM CDT Respiratory Rate 18 06/22/2019 3:14 PM CDT Oxygen Saturation 95% 06/22/2019 3:14 PM CDT Inhaled Oxygen Concentration - - Weight 89.4 kg (197 lb) 06/22/2019 3:14 PM CDT Height - - Body Mass Index 29.3 06/15/2019 5:15 PM CDT documented in this encounter Progress Notes Joya Merchant PA-C - 06/22/2019 3:10 PM CDT SUBJECTIVE: Alcon Zamora is a 43 year old female presenting with a chief complaint of cough and cold sx, ST with nasal congestion and intermittent fevers for the past 8 days. Denies SOB Or chest pain. Onset of symptoms was 8 day(s) ago. Course of illness is worsening. Severity moderate Current and Associated symptoms: body aches and fatigue Treatment measures tried include Tylenol/Ibuprofen, Fluids and Rest. Predisposing factors include None. Past Medical History: Diagnosis Date ??? Acute posthemorrhagic anemia ??? ASD (atrial septal defect) 02/07/2017 ??? 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 Broncho-pulmonary dysplasia ??? Cervicalgia ??? DDD (degenerative disc disease), cervical 02/07/2017 ??? Lizy-Danlos syndrome ??? Excessive or frequent menstruation 01/31/06 Hospitalized ??? Generalized anxiety disorder 10/08/2007 ??? Hemorrhage complicating a procedure ??? Herniated cervical disc 02/07/2017 ??? Major depressive disorder, recurrent episode, severe (H) 10/22/2007 Problem list name updated by automated process. Provider to review ??? Pain in joint, pelvic region and thigh ??? 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 albuterol (PROAIR HFA/PROVENTIL HFA/VENTOLIN HFA) 108 (90 Base) MCG/ACT inhaler Inhale 2 puffs into the lungs every 4 hours as needed for shortness of breath / dyspnea or wheezing 1 Inhaler 3 ??? amphetamine-dextroamphetamine (ADDERALL XR) 10 MG per 24 hr capsule Take 10 mg by mouth ??? BREO ELLIPTA 200-25 MCG/INH Inhaler Inhale 1 puff into the lungs daily 1 Inhaler 11 ??? Chelated Magnesium 100 MG TABS Take 100 mg by mouth At Bedtime ??? citalopram (CELEXA) 20 MG tablet Take 1 tablet (20 mg) by mouth daily 30 tablet 11 ??? cyclobenzaprine (FLEXERIL) 10 MG tablet Take 1 tablet (10 mg) by mouth 3 times daily as needed for muscle spasms 20 tablet 0 ??? fluticasone (FLONASE) 50 MCG/ACT nasal spray Viola 2 sprays into both nostrils daily 16 g 3 ??? ibuprofen 200 MG capsule Take 200 mg by mouth every 4 hours as needed ??? traZODone (DESYREL) 50 MG tablet Take 2 tablets (100 mg) by mouth At Bedtime 60 tablet 11 Social History Tobacco Use ??? Smoking status: Never Smoker ??? Smokeless tobacco: Never Used Substance Use Topics ??? Alcohol use: Yes Comment: minimal ROS: Review of systems negative except as stated above. OBJECTIVE: BP 118/74 Pulse 74 Temp 98.3 ??F (36.8 ??C) Resp 18 Wt 89.4 kg (197 lb) LMP 01/07/2006 SpO2 95% BMI 29.30 kg/m?? GENERAL APPEARANCE: healthy, alert and no distress EYES: EOMI, PERRL, conjunctiva clear HENT: ear canals and TM's normal. Nose and mouth without ulcers, erythema or lesions NECK: supple, nontender, no lymphadenopathy RESP: lungs clear to auscultation - no rales, rhonchi or wheezes CV: regular rates and rhythm, normal S1 S2, no murmur noted ABDOMEN: soft, nontender, no HSM or masses and bowel sounds normal NEURO: Normal strength and tone, sensory exam grossly normal, normal speech and mentation SKIN: no suspicious lesions or rashes Chest x-ray no acute finding of pneumonia noted assessment/plan: (R05) Cough (primary encounter diagnosis) Comment: Plan: XR Chest 2 Views, Beta strep group A culture, azithromycin (ZITHROMAX) 250 MG tablet Lungs clear and no signs of pneumonia. OTC med for sx relief. Decline labs at this time. Appears to be viral in nature and supportive care. Start Zithromax if sx worsen and red flag signs discussed Follow-up with PCP as marcel (J02.9) Sore throat Comment: Plan: Rapid strep screen, Beta strep group A culture Negative strep and culture pending documented in this encounter Plan of Treatment Not on filedocumented as of this encounter Procedures Procedure Name Priority Date/Time Associated Diagnosis Comme nts BETA HEMOLYTIC Routine 06/22/2019 3:21 PM Sore throat Results for this STREP GROUP A CDT Cough procedure are in CULTURE the results section. RAPID STREP SCREEN Routine 06/22/2019 3:17 PM Sore throat Res ults for this THROAT SWAB CDT procedure are i n the results section. documented in this encounter Results XR Chest 2 Views (06/22/2019 3:30 PM CDT) Anatomical Region Laterality Modality Chest Computed Radiography Specimen (Source) Anatomical Location Collection Method / Collectio n Time Received Time / Laterality Volume Impressions 06/23/2019 7:47 AM CDT IMPRESSION: Since August 11, 2012, heart size is thought to be normal. Patient has significant pectus e xcavatum deformity with impression upon the heart, and likely ca use for opacity overlying the inferomedial right hemithorax due to pec tus excavatum. This appearance is unchanged from previous exam. ASD occ luder device again noted. No pleural effusion or pneumothorax. ANTHONY MÉNDEZ MD Narrative 06/23/2019 7:47 AM CDT CHEST TWO VIEWS ??06/22/2019 3:30 PM HISTORY: 43-year-old woman with cough. Procedure Note Anthony Méndez MD - 06/23/2019 CHEST TWO VIEWS 06/22/2019 3:30 PM HISTORY: 43-year-old woman with cough. IMPRESSION: Since August 11, 2012, hea rt size is thought to be normal. Patient has significant pectus e xcavatum deformity with impression upon the heart, and likely ca use for opacity overlying the inferomedial right hemithorax due to pec tus excavatum. This appearance is unchanged from previous exam. ASD occ luder device again noted. No pleural effusion or pneumothorax. ANTHONY MÉNDEZ MD Joya Merchant PA-C IMG DIAGNOSTIC IMAGING ORDER NASRIN Beta strep group A culture (06/22/2019 3:21 PM CDT) Component Value Ref Test Analysis Performed At Patholo gist Range Method Time Signature Specimen Throat [facility] Description [facility] [place] Culture Micro No beta 06/23/2019 [facility] hemolytic 4:11 PM CDT CLINICS Streptococcus [place] Group A isolated Specimen Anatomical Collection Method Collection Time Receive d Time (Source) Location / / Volume Laterality Specimen from 06/22/2019 3:21 PM 06/22/20 19 3:26 throat CDT PM CDT (specimen) Joya Merchant PA-C LAB - MICRO GENERAL ORDERABL ES Performing Organization Address [facility]/ZIP Code Phon e Number [facility] [address] [place] [address] [phone] Rapid strep screen (06/22/2019 3:17 PM CDT) Component Value Ref Test Analysis Performed At Patholo gist Range Method Time Signature Specimen Throat [facility] [place] Rapid Strep A NEGATIVE: No 06/22/2019 [facility] Screen Group A 3:25 PM CDT CLINICS streptococcal [place] antigen detected by immunoassay, await culture report. Specimen Anatomical Collection Method Collection Time Receive d Time (Source) Location / / Volume Laterality Specimen from 06/22/2019 3:17 PM 06/22/20 19 3:18 throat CDT PM CDT (specimen) Joya Merchant PA-C LAB - MICRO GENERAL ORDERABL ES Performing Organization Address City/[facility]/ZIP Code Phon e Number [facility] [address] [place] [address] [phone] documented in this encounter Visit Diagnoses Diagnosis Cough - Primary Sore throat Acute pharyngitis Cough documented in this encounter Additional Health Concerns Assessment Noted Time PHQ-9 Depression Total Score: 0 06/15/2019 7:09 PM CDT documented as of this encounter Care Teams Corrugated Fastener Driver Relationship Specialty Start Date End Date Yung Madrigal MD PCP - Orthopaedics Orthopedics 08/26/12 RETIRED Winston Villatoro, AMELIE PCP - Ophthalmology Ophthalmology 02/11/13 [facility] [address] [facility] [address] [place] [address] Clara Cornell MD PCP - General Internal Medicine 02/07/17 09/20/20 Clara Cornell MD Assigned PCP 01/17/17 07/16/[address] [address] documented as of this encounter
--- OUTSIDE RECORDS SUMMARY | 2022-08-29 12:09 | XMS_ITS | Encounter Summary ---
:1975 Author Organization [facility] Address [address] [place] [address] Care Team Providers Name Role Phone Yung Madrigal MD Unavailable Unavailable Winston Villatoro OD Unavailable Denise Woodson Ra, APRN SURGICAL DENTAL ASSISTANT Unavailable [phone] Denise Woodson Ra, APRN SURGICAL DENTAL ASSISTANT Primary Care Provider [phone] Encounter Details Date Type Department Care Team Description 09/21/2020 Travel Social History Tobacco Use Types Packs/Day Years Used Date Smoking Tobacco: Never Smokeless Tobacco: Never Alcohol Use Standard Drinks/Week Comments Yes 0 (1 standard drink = 0.6 oz pure alcoho l) minimal Sex Assigned at Date Recorded Not on file COVID-19 Exposure Response Date Recorded In the last month, have you been in contact with No / Unsure 09/21/2020 12:04 PM BRICK LAYER someone who was confirmed or suspected to have Coronavirus / COVID-19? documented as of this encounter Plan of Treatment Not on filedocumented as of this encounter Visit Diagnoses Not on filedocumented in this encounter Additional Health Concerns Assessment Noted Time PHQ-9 Depression Total Score: 0 06/15/2019 7:09 PM CDT documented as of this encounter Care Teams Gas Line Servicer Relationship Specialty Start Date End Date Yung Madrigal MD PCP - Orthopaedics Orthopedics 08/26/12 RETIRED Winston Villatoro, OD PCP - Ophthalmology Ophthalmology 02/11/13 [facility] [address] [facility] [address] [place] [address] Denise Woodson Ra, BARRERA SURGICAL DENTAL ASSISTANT PCP - General Family Practice 09/21/20 [id number] [place] [id number] Denise Woodson Ra, APRN SURGICAL DENTAL ASSISTANT Assigned PCP 07/17/20 [address] [place] [id number] documented as of this encounter
--- OUTSIDE RECORDS SUMMARY | 2022-08-29 12:09 | XMS_ITS | Encounter Summary ---
:1975 Author Organization [facility] Address [address] [place] [address] Care Team Providers Name Role Phone Yung Madrigal MD Unavailable Unavailable Winston Villatoro OD Unavailable Clara [place] MD Primary Care Provider [phone] Clara Cornell MD Unavailable [phone] Encounter Details Date Type Department Care Team Description 02/07/2019 Travel Social History Tobacco Use Types Packs/Day [...] documented as of this encounter Care Teams Latex Caster Relationship Specialty Start Date End Date Yung Madrigal MD PCP - Orthopaedics Orthopedics 08/26/12 RETIRED Winston Villatoro, OD PCP - Ophthalmology Ophthalmology 02/11/13 [facility] [address] [facility] [address] [place] [address] Clara Cornell MD PCP - General Internal Medicine 02/07/17 09/20/20 Clara Cornell, MD Assigned PCP 01/17/17 07/16/[address] [address] documented as of this encounter
--- OUTSIDE RECORDS SUMMARY | 2022-08-29 12:09 | XMS_ITS | Encounter Summary ---
:1975 Author Organization [facility] Address [address] [place] [address] Care Team Providers Name Role Phone Yung Madrigal MD Unavailable Unavailable Winston Villatoro OD Unavailable Clara Cornell MD Primary Care Provider [phone] Clara Cornell MD Unavailable [phone] Encounter Details Date Type Department Care Team Description 06/15/2019 Travel Social History Tobacco Use Types Packs/Day [...] documented as of this encounter Care Teams Aqueduct And Reservoir Keeper Relationship Specialty Start Date End Date Yung Madrigal MD PCP - Orthopaedics Orthopedics 08/26/12 RETIRED Winston Villatoro, OD PCP - Ophthalmology Ophthalmology 02/11/13 [facility] [address] [facility] [address] [place] [address] Clara Cornell MD PCP - General Internal Medicine 02/07/17 09/20/20 Clara Cornell, MD Assigned PCP 01/17/17 07/16/[address] [address] documented as of this encounter
--- OUTSIDE RECORDS SUMMARY | 2022-08-29 12:09 | XMS_ITS | Encounter Summary ---
:1975 Author Organization [facility] Address [address] [place] [address]. [place] [address] Care Team Providers Name Role Phone Yung Madrigal MD Unavailable Unavailable Winston Villatoro OD Unavailable Denise Woodson Ra HOME HEALTH CNA REGULATOR TESTER Unavailable [phone] Denise Woodson Ra HOME HEALTH CNA REGULATOR TESTER Primary Care Provider [phone] Reason for Visit Diagnostic Imaging Mammo (Routine) - Closed Specialty Diagnoses / Procedures Referred By Contact Refer red To Contact Diagnoses Encounter for screening mammogram for breast cancer Denise Woodson Ra, APRN Procedures MA Screen Bilateral w/Flo *MA Screening Digital Bilateral REGULATOR TESTER [address] [place] [address] Referral ID Status Reason Start Date Expiration Date Visits Requ ested Visits Authorized [id number] Closed 07/27/2020 07/27/2021 1 1 Encounter Details Date Type Department Care Team Description 12/07/2020 Orders Only [facility] Melvin Guzman MD Encounter for Clinic [place] [address] [facility] screening mammogram [address] [facility] for breast cancer [facility] [place] [address] [address] [place] [address] (Work) [phone] Social History Tobacco Use Types Packs/Day Years Used Date Smoking Tobacco: Never Smokeless Tobacco: Never Alcohol Use Standard Drinks/Week Comments Yes 0 (1 standard drink = 0.6 oz pure alcoho l) minimal Sex Assigned at Date Recorded Not on file COVID-19 Exposure Response Date Recorded In the last month, have you been in contact with No / Unsure 12/07/2020 3:58 PM CDT someone who was confirmed or suspected to have Coronavirus / COVID-19? documented as of this encounter Plan of Treatment Not on filedocumented as of this encounter Procedures Procedure Name Priority Date/Time Associated Diagnosis Comme nts MA SCREENING Routine 12/07/2020 4:22 PM Encounter for Results for this BILATERAL W/ FLO CDT screening mammogram pro cedure are in for breast cancer the result s section. documented in this encounter Results MA Screen Bilateral w/Flo (12/07/2020 4:22 PM CDT) Anatomical Region Laterality Modality Breast Bilateral Mammography Specimen (Source) Anatomical Location Collection Method / Collectio n Time Received Time / Laterality Volume Impressions 12/08/2020 7:44 AM CDT IMPRESSION: BI-RADS CATEGORY: 1 - ??NEGATIVE. RECOMMENDED FOLLOW-UP: Annual Mammograph y. The patient will be notified of the resu lts. RUTH NÚÑEZ MD Narrative 12/08/2020 7:44 AM CDT Examination: Bilateral digital screening mammography with computer aided detection including digital breast tomosynthesis, 12/07/2020 4:22 PM. Comparison: 02/07/2019, 12/05/2017, 10/17 History: No current breast concerns. BREAST DENSITY: Heterogeneously dense. COMMENTS: ??No suspicious finding. Procedure Note Ruth Núñez MD - 12/08/2020 Examination: Bilateral digital screening mammography with computer aided detection including digital breast tomosynthesis, 12/07/2020 4:22 PM. Comparison: 02/07/2019, 12/05/2017, 10/17 History: No current breast concerns. BREAST DENSITY: Heterogeneously dense. COMMENTS: No suspicious finding. IMPRESSION: BI-RADS CATEGORY: 1 - NEGATI VE. RECOMMENDED FOLLOW-UP: Annual Mammograph y. The patient will be notified of the resu lts. RUTH NÚÑEZ MD Denise Woodson APRN REGULATOR TESTER IMG MAMMOGRAPHY ORDERABLES documented in this encounter Visit Diagnoses Diagnosis Encounter for screening mammogram for br east cancer documented in this encounter Additional Health Concerns Assessment Noted Time PHQ-9 Depression Total Score: 0 06/15/2019 7:09 PM CDT documented as of this encounter Care Teams Upholstery Estimator Relationship Specialty Start Date End Date Yung Madrigal MD PCP - Orthopaedics Orthopedics 08/26/12 RETIRED Winston Villatoro, AMELIE PCP - Ophthalmology Ophthalmology 02/11/13 [facility] [address] [facility] [address] [place] [address] Denise Woodson Ra, HOME HEALTH CNA REGULATOR TESTER PCP - General Family Practice 09/21/20 [address] [place] [id number] Denise Woodson Ra, APRN REGULATOR TESTER Assigned PCP 07/17/20 [address] [place] [id number] documented as of this encounter
--- OUTSIDE RECORDS SUMMARY | 2022-08-29 12:09 | XMS_ITS | Encounter Summary ---
:1975 Author Organization [facility] Address [address] [place] [address] Care Team Providers Name Role Phone Yung Madrigal MD Unavailable Unavailable Winston Villatoro OD Unavailable Serum, Clara [place] MD Primary Care Provider [phone] Denise Woodson Ra, APRN PAINTER AND PAPERHANGER APPRENTICE Unavailable [phone] Encounter Details Date Type Department Care Team Description 08/12/2020 Travel Social History Tobacco Use Types Packs/Day Years Used Date Smoking Tobacco: Never Smokeless Tobacco: Never Alcohol Use Standard Drinks/Week Comments Yes 0 (1 standard drink = 0.6 oz pure alcoho l) minimal Sex Assigned at Date Recorded Not on file COVID-19 Exposure Response Date Recorded In the last month, have you been in contact with No / Unsure 08/12/2020 4:13 PM [employer]OOK someone who was confirmed or suspected to have Coronavirus / COVID-19? documented as of this encounter Plan of Treatment Not on filedocumented as of this encounter Visit Diagnoses Not on filedocumented in this encounter Additional Health Concerns Assessment Noted Time PHQ-9 Depression Total Score: 0 06/15/2019 7:09 PM CDT documented as of this encounter Care Teams Geophysical Prospecting Permit Agent Relationship Specialty Start Date End Date Yung Madrigal MD PCP - Orthopaedics Orthopedics 08/26/12 RETIRED Winston Villatoro, OD PCP - Ophthalmology Ophthalmology 02/11/13 [facility] [address] [facility] [address] [place] [address] Clara Cornell MD PCP - General Internal Medicine 02/07/17 09/20/20 Denise Woodson Ra, REFRIGERATION INSULATOR Assigned PCP 07/17/20 [facility] [address] [place] [id number] documented as of this encounter
--- OUTSIDE RECORDS SUMMARY | 2022-08-29 12:09 | XMS_ITS | Encounter Summary ---
:1975 Author Organization [place] Address [address] [facility] [place] [address] Care Team Providers Name Role Phone Yung Madrigal MD Unavailable Unavailable Winston Villatoro OD Unavailable Denise Woodson Ra, APRN, CNP Unavailable [phone] Denise Woodson Ra, APRN, CNP Primary Care Provider [phone] Reason for Referral (Routine) - Closed Specialty Diagnoses / Procedures Referred By Contact Refer red To Contact Gastroenterology Diagnoses Change in voice Globus sensation Denise Woodson Ra, APRN CNP [address] [id number] Referral ID Status Reason Start Date Expiration Date Visits Requ ested Visits Authorized [id number] Closed 01/04/2021 01/04/2022 1 1 Scheduling Instructions If EUS or ERCP is selected, it requires clinical review prior to scheduling. Reason for Visit Reason Comments Throat Problem Encounter Details Date Type Department Care Team Description 01/04/2021 Office Visit [facility] Denise Woodson Change in voice (Primary Dx); Clinic Ron Gonsales APRN CNP Globus sensation [id number] [place] [id number] [phone] Social History Tobacco Use Types Packs/Day Years [...] Sign Reading Time Taken Comments Blood Pressure 120/80 01/04/2021 8:43 AM CDT Pulse 75 01/04/2021 8:43 AM CDT Temperature 36.7 ??C (98.1 ??F) 01/04/2021 8:43 AM CDT Respiratory Rate 16 01/04/2021 8:43 AM CDT Oxygen Saturation 98% 01/04/2021 8:43 AM CDT Inhaled Oxygen Concentration - - Weight 96 kg (211 lb 11.2 oz) 01/04/2021 8:43 AM CDT Height 174.6 cm (5' 8.75) 01/04/2021 8:43 AM CDT Body Mass Index 31.49 01/04/2021 8:43 AM CDT documented in this encounter Patient Instructions Patient InstructionsDenise Woodson Ra, APRN CNP - 01/04/2021 8:40 AM CDT They will call you to schedule the scope. We will talk after that. documented in this encounter Progress Notes Denise Woodson Ra, APRN CNP - 01/04/2021 8:40 AM CDT Assessment & Plan Change in voice Discussed options. Start with labs and EGD. Will discuss plan after results are reviewed. Pt agrees with plan and verbalized understanding. - CBC with platelets - Comprehensive metabolic panel (BMP + Alb, Alk Phos, ALT, AST, Total. Bili, TP) - TSH with free T4 reflex - GASTROENTEROLOGY ADULT REF PROCEDURE ONLY; Future Globus sensation See above. - CBC with platelets - Comprehensive metabolic panel (BMP + Alb, Alk Phos, ALT, AST, Total. Bili, TP) - TSH with free T4 reflex - GASTROENTEROLOGY ADULT REF PROCEDURE ONLY; Future Return in about 7 months (around 08/06/2021) for Physical Exam. Denise Woodson APRN CNP [facility] RON Rondon is a 45 year old who presents for the following health issues HPI Concern - Throat issues Onset: few months Description: feeling of something in the back of the throat Intensity: mild Progression of Symptoms: same and intermittent Accompanying Signs & Symptoms: hoarse voice and throat looks bigger Previous history of similar problem: None Precipitating factors: Worsened by: None Alleviating factors: Improved by: None Therapies tried and outcome: none Episodes over the past 2 months. Hoarseness and eventual voice loss about two times per week. No issues breathing. Sometimes feels like swallowing is more difficult. No post nasal drip or illness. No fevers or weight change. Taking in food and fluids as usual. Anton like her neck L side was more full. No pain. No reflux. Review of Systems Constitutional, HEENT, cardiovascular, pulmonary, gi and gu systems are negative, except as otherwise noted. Objective BP 120/80 (BP Location: Right arm, Patient Position: Chair, Cuff Size: Adult Large) Pulse 75 Temp 98.1 ??F (36.7 ??C) (Oral) Resp 16 Ht 1.746 m (5' 8.75) Wt 96 kg (211 lb 11.2 oz) LMP 01/07/2006 SpO2 98% BMI 31.49 kg/m?? Body mass index is 31.49 kg/m??. Physical Exam GENERAL: healthy, alert and no distress EYES: Eyes grossly normal to inspection HENT: ear canals and TM's normal, nose and mouth without ulcers or lesions NECK: no adenopathy, no asymmetry, masses, or scars and thyroid normal to palpation RESP: lungs clear to auscultation - no rales, rhonchi or wheezes CV: regular rate and rhythm, normal S1 S2, no S3 or S4, no murmur, click or rub, no peripheral edemaand peripheral pulses strong ABDOMEN: soft, nontender, no hepatosplenomegaly, no masses and bowel sounds normal PSYCH: mentation appears normal, affect normal/bright Results for orders placed or performed in visit on 01/04/21 (from the past 24 hour(s)) CBC with platelets Result Value Ref Range WBC 7.4 4.0 - 11.0 10e9/L RBC Count 4.51 3.8 - 5.2 10e12/L Hemoglobin 13.9 11.7 - 15.7 g/dL Hematocrit 42.2 35.0 - 47.0 % MCV 94 78 - 100 fl MCH 30.8 26.5 - 33.0 pg MCHC 32.9 31.5 - 36.5 g/dL RDW 11.7 10.0 - 15.0 % Platelet Count 210 150 - 450 10e9/L documented in this encounter Plan of Treatment Scheduled Referrals Name Type Priority Associated Diagnoses Order S chedule GASTROENTEROLOGY ADULT REF Referral Routine Neville e in voice Expected: PROCEDURE ONLY Globus sensation , Expires: 2021 documented as of this encounter Procedures Procedure Name Priority Date/Time Associated Comments Diagnosis TSH WITH FREE T4 Routine 01/04/2021 9:18 AM Change in vo ice Results for this REFLEX CDT Globus sensation procedure a re in the results section. COMPREHENSIVE Routine 01/04/2021 9:18 AM Change in voi ce Results for this METABOLIC PANEL CDT Globus sensation procedur e are in the results section. CBC WITH PLATELETS Routine 01/04/2021 9:18 AM Change in voice Results for this CDT Globus sensation procedure a re in the results section. ASTHMA ACTION PLAN Routine 01/04/2021 9:09 AM CDT documented in this encounter Results TSH with free T4 reflex (01/04/2021 9:18 AM CDT) P athologist Signature TSH 2.96 0.40 - 4.00 01/04/2021 [facility] mU/L 4:52 PM CDT HOSPITAL Specimen Anatomical Collection Method Collection Time Receive d Time (Source) Location / / Volume Laterality Blood 01/04/2021 9:18 AM 9:19 CDT AM CDT Denise Woodson APRN PATROL CAPTAIN LAB - BLOOD ORDERABLES Performing Organization Address City/State/ZIP Code Phon e Number M [facility] [address] [place], [place] [address] [facility] [address] [phone] (ABNORMAL) Comprehensive metabolic panel (BMP + Alb, Alk Phos, ALT, AST, Total. Bili, TP) (01/04/2021 9:18 AM CDT) athologist Signature Sodium 138 133 - 144 01/04/2021 [place] mmol/L 4:33 PM [facility] Potassium 4.3 3.4 - 5.3 01/04/2021 [place] mmol/L 4:33 PM [facility] Chloride 106 94 - 109 01/04/2021 [place] mmol/L 4:33 PM [facility] Carbon Dioxide 31 20 - 32 01/04/2021 [place] mmol/L 4:43 PM [facility] Anion Gap 1 (L) 3 - 14 01/04/2021 [place] mmol/L 4:43 PM [facility] Glucose 87 70 - 99 01/04/2021 [place] mg/dL 4:43 PM [facility] Urea Nitrogen 13 7 - 30 01/04/2021 [place] mg/dL 4:43 PM [facility] Creatinine 0.77 0.52 - 01/04/2021 [place] 1.04 mg/dL 4:43 PM [facility] GFR Estimate >90 >60 01/04/2021 [place] mL/min/{1. 4:43 PM [facility] 73_m2} HOSPITAL Comment: Non GFR Calc Starting 09/02/2018, serum creatinine ba sed estimated GFR (eGFR) will be calculated using the Chronic Kidney Dise [facility] Epidemiology Collaboration (CKD-EPI) equation. GFR Estimate If >90 >60 mL/min/{1.73_m2} 01/04/2021 4: 43 PM [facility] Comment: GFR Calc Starting 09/02/2018, serum creatinine ba sed estimated GFR (eGFR) will be calculated using the Chronic Kidney Dise [facility] Epidemiology Collaboration (CKD-EPI) equation. Calcium 8.7 8.5 - 10.1 mg/dL 01/04/2021 4:43 PM [facility] Bilirubin Total 0.7 0.2 - 1.3 mg/dL 01/04/2021 4:44 PM [facility] Albumin 3.5 3.4 - 5.0 g/dL 01/04/2021 4:44 PM [facility] Protein Total 7.3 6.8 - 8.8 g/dL 01/04/2021 4:44 PM [facility] Alkaline Phosphatase 65 40 - 150 U/L 01/04/2021 4:44 PM [facility] ALT 18 0 - 50 U/L 01/04/2021 4:44 PM [facility] AST 10 0 - 45 U/L 01/04/2021 4:44 PM [facility] Specimen Anatomical Collection Method Collection Time Receive d Time (Source) Location / / Volume Laterality Blood 01/04/2021 9:18 AM 9:19 CDT AM CDT Denise Woodson APRN PATROL CAPTAIN LAB - BLOOD ORDERABLES Performing Organization Address City/State/ZIP Code Phon e Number M [address] [address] [facility] [address] [place] [address] [place], [place] [address], [facility] [phone] [address], [facility] [phone] [facility] CBC with platelets (01/04/2021 9:18 AM CDT) P athologist Signature WBC 7.4 4.0 - 11.0 01/04/2021 [place] 10e9/L 9:57 AM CDT [facility] RBC Count 4.51 3.8 - 5.2 01/04/2021 [place] 10e12/L 9:57 AM CDT [facility] Hemoglobin 13.9 11.7 - 01/04/2021 [place] 15.7 g/dL 9:57 AM CDT [facility] Hematocrit 42.2 35.0 - 01/04/2021 [place] 47.0 % 9:57 AM CDT [facility] MCV 94 78 - 100 01/04/2021 [place] fl 9:57 AM CDT [facility] MCH 30.8 26.5 - 01/04/2021 [place] 33.0 pg 9:57 AM CDT [facility] 32.9 31.5 - 01/04/2021 [place] 36.5 g/dL 9:57 AM CDT [facility] RDW 11.7 10.0 - 01/04/2021 [place] 15.0 % 9:57 AM CDT [facility] Platelet Count 210 150 - 450 01/04/2021 [place] 10e9/L 9:57 AM CDT [facility] Specimen Anatomical Collection Method Collection Time Receive d Time (Source) Location / / Volume Laterality Blood 01/04/2021 9:18 AM 9:19 CDT AM CDT Denise Woodson APRN, CNP LAB - BLOOD ORDERABLES Performing Organization Address City/State/ZIP Code Phon e Number [facility] [address] [place], [place] [address] documented in this encounter Visit Diagnoses Diagnosis Change in voice - Primary Other voice and resonance disorders Globus sensation Gastrointestinal malfunction arising fro m mental factors documented in this encounter Additional Health Concerns Assessment Noted Time PHQ-9 Depression Total Score: 0 01/04/2021 9:31 AM CDT documented as of this encounter Care Teams Billing Services Manager Relationship Specialty Start Date End Date Yung Madrigal MD PCP - Orthopaedics Orthopedics 08/26/12 RETIRED Winston Villatoro, AMELIE PCP - Ophthalmology Ophthalmology 02/11/13 [facility] [place] [address] [place] [address] Denise Woodson Ra, APRN CNP PCP - General Family Practice 09/21/20 [id number] [address] [id number] Denise Woodson Ra, APRN CNP Assigned PCP 07/17/20 [address] [address] [id number] documented as of this encounter
--- OUTSIDE RECORDS SUMMARY | 2022-08-29 12:09 | XMS_ITS | Encounter Summary ---
:1975 Author Organization [place] Address [address] [facility] [place] [address] Care Team Providers Name Role Phone Yung Madrigal MD Unavailable Unavailable Winston Villatoro OD Unavailable Serum, Clara Garland MD Primary Care Provider [phone] Denise Woodson Ra RIDE MECHANIC CUSTOMER RESPONSE REPRESENTATIVE Unavailable [phone] Encounter Details Date Type Department Care Team Description 08/05/2020 Orders Only [facility] Denise Woodson Leukoc ytosis, Clinic [place] Ra, RIDE MECHANIC CUSTOMER RESPONSE REPRESENTATIVE unspecified type [id number] [address] [address] (Primary Dx) [place], [place] [phone] Social History Tobacco Use Types Packs/Day Years Used Date Smoking Tobacco: Never Smokeless Tobacco: Never Alcohol Use Standard Drinks/Week Comments Yes 0 (1 standard drink = 0.6 oz pure alcoho l) minimal Sex Assigned at Date Recorded Not on file COVID-19 Exposure Response Date Recorded In the last month, have you been in contact with No / Unsure 07/27/2020 2:47 PM PUBLIC HEALTH TECHNICIAN someone who was confirmed or suspected to have Coronavirus / COVID-19? documented as of this encounter Plan of Treatment Not on filedocumented as of this encounter Results CBC with platelets and differential (08/12/2020 4:14 PM PUBLIC HEALTH TECHNICIAN) Patholo gist Method Time Signature WBC 8.8 4.0 - 08/12/2020 [facility] 11.0 4:21 PM PUBLIC HEALTH TECHNICIAN CLINICS 10e9/L [place] RBC Count 4.64 3.8 - 5.2 08/12/2020 [facility] 10e12/L 4:21 PM PUBLIC HEALTH TECHNICIAN [facility] Hemoglobin 14.0 11.7 - 08/12/2020 [facility] 15.7 g/dL 4:21 PM PUBLIC HEALTH TECHNICIAN [facility] Hematocrit 43.3 35.0 - 08/12/2020 [facility] 47.0 % 4:21 PM PUBLIC HEALTH TECHNICIAN [facility] MCV 93 78 - 100 08/12/2020 [facility] fl 4:21 PM PUBLIC HEALTH TECHNICIAN [facility] MCH 30.2 26.5 - 08/12/2020 [facility] 33.0 pg 4:21 PM PUBLIC HEALTH TECHNICIAN [facility] MCHC 32.3 31.5 - 08/12/2020 [facility] 36.5 g/dL 4:21 PM PUBLIC HEALTH TECHNICIAN [facility] RDW 11.9 10.0 - 08/12/2020 [facility] 15.0 % 4:21 PM PUBLIC HEALTH TECHNICIAN [facility] Platelet Count 213 150 - 450 08/12/2020 [facility] 10e9/L 4:21 PM PUBLIC HEALTH TECHNICIAN [facility] [place] % Neutrophils 60.1 % 08/12/2020 [facility] 4:21 PM PUBLIC HEALTH TECHNICIAN [facility] % Lymphocytes 29.8 % 08/12/2020 [facility] 4:21 PM [facility] TE[facility] [place] % Monocytes 6.6 % 08/12/2020 [facility] 4:21 PM [facility] TECHNICIAN [facility] [place] % Eosinophils 3.2 % 08/12/2020 [facility] 4:21 PM [facility] TECHNICIAN [facility] [place] % Basophils 0.3 % 08/12/2020 [facility] 4:21 PM PUBLIC HEALTH TECHNICIAN [facility] Absolute 5.3 1.6 - 8.3 08/12/2020 [facility] Neutrophil 10e9/L 4:21 PM PUBLIC HEALTH TECHNICIAN [facility] Absolute 2.6 0.8 - 5.3 08/12/2020 [facility] Lymphocytes 10e9/L 4:21 PM PUBLIC HEALTH TECHNICIAN [facility] Absolute 0.6 0.0 - 1.3 08/12/2020 [facility] Monocytes 10e9/L 4:21 PM PUBLIC HEALTH TECHNICIAN [facility] [place] Absolute 0.3 0.0 - 0.7 08/12/2020 [facility] Eosinophils 10e9/L 4:21 PM PUBLIC HEALTH TECHNICIAN [facility] [place] Absolute 0.0 0.0 - 0.2 08/12/2020 [place] Basophils 10e9/L 4:21 PM [facility] [place] Diff Method Automated 08/12/2020 [place] Method 4:21 PM [facility] [place] Specimen Anatomical Collection Method Collection Time Receive d Time (Source) Location / / Volume Laterality Blood specimen 08/12/2020 4:14 PM 020 4:15 (specimen) PUBLIC HEALTH TECHNICIAN PM PUBLIC HEALTH TECHNICIAN Denise Woodson APRN CUSTOMER RESPONSE REPRESENTATIVE LAB - BLOOD ORDERABLES Performing Organization Address City/State/ZIP Code Phon e Number [facility] [address] [address] [place], [place] [address] documented in this encounter Visit Diagnoses Diagnosis Leukocytosis, unspecified type - Primary documented in this encounter Additional Health Concerns Assessment Noted Time PHQ-9 Depression Total Score: 0 06/15/2019 7:09 PM CDT documented as of this encounter Care Teams Microsoft Exchange Administrator Relationship Specialty Start Date End Date Yung Madrigal MD PCP - Orthopaedics Orthopedics 08/26/12 RETIRED Winston Villatoro, AMELIE PCP - Ophthalmology Ophthalmology 02/11/13 [facility] [place] [address] [place] [address] Clara Cornell MD PCP - General Internal Medicine 02/07/17 09/20/20 Denise Woodson Ra, APRN Assigned PCP 07/17/20 CUSTOMER RESPONSE REPRESENTATIVE [address] [facility] [place] [address] documented as of this encounter
--- OUTSIDE RECORDS SUMMARY | 2022-08-29 12:09 | XMS_ITS | Encounter Summary ---
:1975 Author Organization [place] Address [address] [place] [address] Care Team Providers Name Role Phone Yung Madrigal MD Unavailable Unavailable Winston Villatoro OD Unavailable Serum, Clara Garland MD Primary Care Provider [phone] Serum, Clara Garland MD Unavailable [phone] Reason for Visit Diagnostic Imaging Mammo (Routine) - Closed Specialty Diagnoses / Procedures Referred By Contact Refer red To Contact Diagnoses Visit for screening mammogram Serum, Clara Garland MD Procedures MA Screen Bilateral w/Flo MA Screening Digital Bilateral [address] [address] Referral ID Status Reason Start Date Expiration Date Visits Requ ested Visits Authorized [id number] Closed 01/29/2019 01/29/2020 1 1 Encounter Details Date Type Department Care Team Description 02/07/2019 Orders Only [facility] Vis it for screening [place] mammogram [address] [facility] [address] [place] [address] Social History Tobacco Use Types Packs/Day [...] Associated Diagnosis Comme nts MA SCREENING Routine 02/07/2019 10:11 AM Visit for screening R esults for this BILATERAL W/ FLO CDT mammogram procedure are in the results section. documented in this encounter Results MA Screen Bilateral w/Flo (02/07/2019 10:11 AM CDT) Anatomical Region Laterality Modality Breast Bilateral Mammography Specimen (Source) Anatomical Location Collection Method / Collectio n Time Received Time / Laterality Volume Impressions 02/10/2019 7:20 AM CDT IMPRESSION: BI-RADS CATEGORY: 1 - Negative. RECOMMENDED FOLLOW-UP: Annual Mammograph y. Recommend routine annual screening mammo graphy. Exam results letter mailed to patient. IRMA HOWELL MD Narrative 02/10/2019 7:20 AM CDT SCREENING MAMMOGRAM, BILATERAL, DIGITAL w/CAD AND TOMOSYNTHESIS - 02/07/2019 10:11 AM. BREAST SYMPTOMS: No current breast compl aints. COMPARISON: ??12/05/2017, 10/26/2016. BREAST DENSITY: Heterogeneously dense. COMMENTS: No findings of suspicion for m alignancy. Procedure Note Irma Howell MD - 02/10/2019 SCREENING MAMMOGRAM, BILATERAL, DIGITAL w/CAD AND TOMOSYNTHESIS - 02/07/2019 10:11 AM. BREAST SYMPTOMS: No current breast compl aints. COMPARISON: 12/05/2017, 10/26/2016. BREAST DENSITY: Heterogeneously dense. COMMENTS: No findings of suspicion for m alignancy. IMPRESSION: BI-RADS CATEGORY: 1 - Negati ve. RECOMMENDED FOLLOW-UP: Annual Mammograph y. Recommend routine annual screening mammo graphy. Exam results letter mailed to patient. IRMA HOWELL MD Clara Cornell MD IMG MAMMOGRAPHY ORDERABLES documented in this encounter Visit Diagnoses Diagnosis Visit for screening mammogram Other screening mammogram documented in this encounter Additional Health Concerns Assessment Noted Time PHQ-9 Depression Total Score: 0 02/08/2017 7:29 AM CDT documented as of this encounter Care Teams Welder Explosion Relationship Specialty Start Date End Date Yung Madrigal MD PCP - Orthopaedics Orthopedics 08/26/12 RETIRED Winston Villatoro, OD PCP - Ophthalmology Ophthalmology 02/11/13 [facility] [place] [address] [facility] [address] [place] [address] Clara Cornell MD PCP - General Internal Medicine 02/07/17 09/20/20 Clara Cornell MD Assigned PCP 01/17/17 07/16/[address] [address] documented as of this encounter
--- OUTSIDE RECORDS SUMMARY | 2022-08-29 12:09 | XMS_ITS | Encounter Summary ---
:1975 Author Organization [place] Address [address] [place] [address] Care Team Providers Name Role Phone Yung Madrigal MD Unavailable Unavailable Winston Villatoro OD Unavailable Denise Woodson Ra, APRN AGRICULTURAL PRODUCE WASHER Unavailable [phone] Denise Woodson Ra, APRN AGRICULTURAL PRODUCE WASHER Primary Care Provider [phone] Encounter Details Date Type Department Care Team Description 12/07/2020 Travel Social History Tobacco Use Types Packs/Day [...] documented as of this encounter Care Teams Locket Maker Relationship Specialty Start Date End Date Yung Madrigal MD PCP - Orthopaedics Orthopedics 08/26/12 RETIRED Winston Villatoro, OD PCP - Ophthalmology Ophthalmology 02/11/13 [facility] [address] [facility] [address] [place] [address] Denise Woodson Ra, BARRERA AGRICULTURAL PRODUCE WASHER PCP - General Family Practice 09/21/20 [address] [address] [id number] Denise Woodson Ra, APRN AGRICULTURAL PRODUCE WASHER Assigned PCP 07/17/20 [id number] [address] [address] documented as of this encounter
--- OUTSIDE RECORDS SUMMARY | 2022-08-29 12:09 | XMS_ITS | Encounter Summary ---
:1975 Author Organization [place] Address [address] [place] [address] Care Team Providers Name Role Phone Yung Madrigal MD Unavailable Unavailable Winston Villatoro OD Unavailable Serum, Clara Garland MD Primary Care Provider [phone] Serum, Clara Garland MD Unavailable [phone] Reason for Visit Diagnostic Imaging XR (Routine) - Closed Specialty Diagnoses / Procedures Referred By Contact Refer red To Contact Diagnoses Cough Joya Merchant, Procedures XR Chest 2 Views PA-C [address] [place] [address] Referral ID Status Reason Start Date Expiration Date Visits Requ ested Visits Authorized [id number] Closed 06/22/2019 06/21/2020 1 1 Encounter Details Date Type Department Care Team Description 06/22/2019 Ancillary Procedure [facility] Joya Merchant Cough [facility] Kavon Castillo PA-C [address] [place] [address] [place] [address] [address] [place] [address] [phone] Social History Tobacco Use Types Packs/Day Years [...] Name Priority Date/Time Associated Diagnosis Comme nts XR CHEST 2 VIEWS Routine 06/22/2019 3:30 PM Cough Resul ts for this CDT procedure are i n the results [...] pneumothorax. ANTHONY MÉNDEZ MD Joya Merchant PA-C [facility] ORDER [place] documented in this encounter Visit Diagnoses Diagnosis Cough documented in this encounter Additional Health Concerns Assessment Noted Time PHQ-9 Depression Total Score: 0 06/15/2019 7:09 PM CDT documented as of this encounter Care Teams Heating Unit Mechanic Relationship Specialty Start Date End Date Yung Madrigal MD PCP - Orthopaedics Orthopedics 08/26/12 RETIRED Winston Villatoro, AMELIE PCP - Ophthalmology Ophthalmology 02/11/13 [facility] [place] [address] [place] [address] [address] [place] [address] Clara Cornell MD PCP - General Internal Medicine 02/07/17 09/20/20 Clara Cornell MD Assigned PCP 01/17/17 07/16/[address] [address] documented as of this encounter
--- OUTSIDE RECORDS SUMMARY | 2022-08-29 12:09 | XMS_ITS | Encounter Summary ---
:1975 Author Organization [place] Address [address] [place] [address]. [place] [address] Care Team Providers Name Role Phone Yung Madrigal MD Unavailable Unavailable Winston Villatoro OD Unavailable Denise Woodson Ra, APRN SKIN DIVER Unavailable [phone] Denise Woodson Ra, APRN SKIN DIVER Primary Care Provider [phone] Reason for Visit Reason Onset Date Comments Panel Management 12/30/2020 Encounter Details Date Type Department Care Team Description 12/30/2020 [facility] Denise Woodson Ra, Panel Management Ginny RUST SKIN DIVER [id number] [place] [address] [place], [place] [id number] (Wo rk) Social History Tobacco Use Types [...] this encounter Miscellaneous Notes Telephone Encounter - Janna Carreon - 01/16/2021 10:51 AM CDT Patient completed ACT in [facility], review flow sheets. -Janna Carreon Medicaid Analyst Telephone Encounter - Jessica Phipps LPN - 12/30/2020 9:58 AM CDT Patient Quality Outreach Summary: Patient has the following on her problem list/HM: Asthma review ACT Total Scores 07/14/2020 ACT TOTAL SCORE (Goal Greater than or Equal to 20) 14 In the past 12 months, how many times did you visit the emergency room for your asthma without beingadmitted to the hospital? 0 In the past 12 months, how many times were you hospitalized overnight because of your asthma? 0 Patient is due/failing the following: ACT needed Type of outreach: Sent [facility] message. Questions for provider review: None Jessica Phipps LPN Chart routed to Care Team. documented in this encounter Plan of Treatment Not on filedocumented as of this encounter Visit Diagnoses Not on filedocumented in this encounter Additional Health Concerns Assessment Noted Time PHQ-9 Depression Total Score: 0 06/15/2019 7:09 PM CDT documented as of this encounter Care Teams Mri Supervisor Relationship Specialty Start Date End Date Yung Madrigal MD PCP - Orthopaedics Orthopedics 08/26/12 RETIRED Winston Villatoro OD PCP - Ophthalmology Ophthalmology 02/11/13 [facility] [address] [facility] [address] [place] [address] Dneise Woodson Ra, APRN SKIN DIVER PCP - General Family Practice 09/21/20 [id number] [address] [id number] Denise Woodson Ra, APRN SKIN DIVER Assigned PCP 07/17/20 [id number] [address] [id number] documented as of this encounter
--- OUTSIDE RECORDS SUMMARY | 2022-08-29 12:09 | XMS_ITS | Encounter Summary ---
:1975 Author Organization [place] Address [address] [place] [address] Care Team Providers Name Role Phone Yung Madrigal MD Unavailable Unavailable Winston Villatoro OD Unavailable Serum, Clara Garland MD Primary Care Provider [phone] Denise Woodson Ra, APRN DONATION WORKER Unavailable [phone] Encounter Details Date Type Department Care Team Description 07/27/2020 Travel Social History Tobacco Use Types Packs/Day Years Used Date Smoking Tobacco: Never Smokeless Tobacco: Never Alcohol Use Standard Drinks/Week Comments Yes 0 (1 standard drink = 0.6 oz pure alcoho l) minimal Sex Assigned at Date Recorded Not on file COVID-19 Exposure Response Date Recorded In the last month, have you been in contact with No / Unsure 07/27/2020 2:47 PM CONTINUOUS PICKLING LINE PICKLER someone who was confirmed or suspected to have Coronavirus / COVID-19? documented as of this encounter Plan of Treatment Not on filedocumented as of this encounter Visit Diagnoses Not on filedocumented in this encounter Additional Health Concerns Assessment Noted Time PHQ-9 Depression Total Score: 0 06/15/2019 7:09 PM CDT documented as of this encounter Care Teams History Department Chair Relationship Specialty Start Date End Date Yung Madrigal MD PCP - Orthopaedics Orthopedics 08/26/12 RETIRED Winston Villatoro, OD PCP - Ophthalmology Ophthalmology 02/11/13 [facility] [address] [facility] [address] [place] [address] Clara Cornell MD PCP - General Internal Medicine 02/07/17 09/20/20 Denise Woodson Ra, LINING MARKER Assigned PCP 07/17/20 [facility] [id number] [address] [id number] documented as of this encounter
--- OUTSIDE RECORDS SUMMARY | 2022-08-29 12:09 | XMS_ITS | Encounter Summary ---
:1975 Author Organization [place] Address [address] [place] [address] Care Team Providers Name Role Phone Yung Madrigal MD Unavailable Unavailable ShaunaWinston OD Unavailable Serum, Clara Garland MD Primary Care Provider [phone] Serum, Clara Garland MD Unavailable Reason for Visit Reason Onset Date Comments Erroneous encounter-disregard 04/21/2019 Encounter Details Date Type Department Care Team Description 04/20/2019 Office Visit [facility] Kavon Garland MD ENCOUNTER--DISREGARD [id number] [facility] (Primary Dx) [facility] [address] [place] [address] [place], [place] [address] Social History Tobacco Use Types Packs/Day Years Used Date Smoking Tobacco: Never Smokeless Tobacco: Never Alcohol Use Standard Drinks/Week Comments Yes 0 (1 standard drink = 0.6 oz pure alcoho l) minimal Sex Assigned at Date Recorded Not on file documented as of this encounter Patient Instructions Patient InstructionsBrenda Matos LPN - 04/20/2019 5:05 PM CDT Preventive Health Recommendations Female Ages 40 to [...] six months for an exam and cleaning. documented in this encounter Progress Notes Clara Cornell MD - 04/20/2019 5:05 PM CDT This encounter was opened in error. Please disregard. documented in this encounter Plan of Treatment Not on filedocumented as of this encounter Visit Diagnoses Diagnosis ERRONEOUS ENCOUNTER--DISREGARD - Primary documented in this encounter Additional Health Concerns Assessment Noted Time PHQ-9 Depression Total Score: 0 02/08/2017 7:29 AM CDT documented as of this encounter Care Teams Scrap Drop Engineer Relationship Specialty Start Date End Date Yung Madrigal MD PCP - Orthopaedics Orthopedics 08/26/12 RETIRED Winston Villatoro OD PCP - Ophthalmology Ophthalmology 02/11/13 [facility] [address] [facility] [address] [place] [address] Clara Cornell MD PCP - General Internal Medicine 02/07/17 09/20/20 Clara Cornell MD Assigned PCP 01/17/17 07/16/[address] [address] documented as of this encounter
--- OUTSIDE RECORDS SUMMARY | 2022-08-29 12:09 | XMS_ITS | Encounter Summary ---
:1975 Author Organization [place] Address [facility] [place] [address] Care Team Providers Name Role Phone Yung Madrigal MD Unavailable Unavailable Winston Villatoro OD Unavailable Serum, Clara Garland MD Primary Care Provider [phone] Denise Woodson Ra, APRN, CNP Unavailable [phone] Reason for Referral Consultation (Routine) - Closed Specialty Diagnoses / Procedures Referred By Contact Refer red To Contact Gastroenterology Diagnoses Abdominal pain, epigastric Denise Woodson Ra, [facility] HUBBARD MICHAEL [address] [place] [address] [id number] [place] [phone] Phone: Referral ID Status Reason Start Date Expiration Date Visits Requ ested Visits Authorized [id number] Closed 07/27/2020 07/27/2021 1 1 STANT DEAN Reason for Visit Reason Comments Physical Encounter Details Date Type Department Care Team Description 07/[facility] ([facility] Dx); Clinic Ginny Gonsales APRN CNP Abdominal pain, epigastric; [id number] Encounter for screening mammogram for br east cancer [place] [id number] [phone] Social History Tobacco Use Types Packs/Day Years Used Date Smoking Tobacco: Never Smokeless Tobacco: Never Alcohol Use Standard Drinks/Week Comments Yes 0 (1 standard drink = 0.6 oz pure alcoho l) minimal Sex Assigned at Date Recorded Not on file COVID-19 Exposure Response Date Recorded In the last month, have you been in contact with No / Unsure 07/27/2020 2:47 PM ASSISTANT DEAN someone who was confirmed or suspected to have Coronavirus / COVID-19? documented as of this encounter Last Filed Vital Signs Vital Sign Reading Time Taken Comments Blood Pressure 110/70 07/27/2020 2:58 PM ASSISTANT DEAN Pulse 65 07/27/2020 2:58 PM ASSISTANT DEAN Temperature 36.5 ??C (97.7 ??F) 07/27/2020 2:58 PM ASSISTANT DEAN Respiratory Rate - - Oxygen Saturation 100% 07/27/2020 2:58 PM ASSISTANT DEAN Inhaled Oxygen Concentration - - Weight 95.3 kg (210 lb) 07/27/2020 2:58 PM ASSISTANT DEAN Height 174 cm (5' 8.5) 07/27/2020 2:58 PM ASSISTANT DEAN Body Mass Index 31.47 07/27/2020 2:58 PM ASSISTANT DEAN documented in this encounter Patient Instructions Patient InstructionsJessica Phipps LPN - 07/27/2020 3:00 PM CST Preventive Health Recommendations Female Ages 40 [...] six months for an exam and cleaning. STANT DEAN Abril Tolliver LPN - 07/27/2020 Preventive Health Recommendations Female Ages 40 to [...] six months for an exam and cleaning. STANT DEAN documented in this encounter Progress Notes Denise Woodson Ra, BARRERA GLASS SMOOTHER - 07/27/2020 3:00 PM CST SUBJECTIVE: CC: Alcon Zamora is an 44 year old woman who presents for preventive [...] Medication side effects: None PHQ-2 Total Score: 2 Additional concerns today: Yes Chronic abdominal pain. Sometimes worse than others, never completely resolved. Has had CT scans done in the past. Never had a scope or labs. Never worked with GI. She denies fevers, weight change, blood in stool, changes in stool. Epigastric area after eating is where the pain is most of the time. She had a hysterectomy in her 20s as they thought that could be contributing. This did not seem to help. She is unaware of any hx of celiac in the family. Recently started lexapro. Tolerating well. Today's PHQ-2 Score: PHQ-2 (??1998 Pfizer) 07/27/2020 Q1: Little interest or pleasure in doing things 1 Q2: Feeling down, depressed or hopeless 1 PHQ-2 Score 2 Q1: Little interest or pleasure in doing things Several days Q2: Feeling down, depressed or hopeless Several days PHQ-2 Score 2 Abuse: Current or Past (Physical, Sexual or Emotional) - No Do you feel safe in your environment? Yes Social History Tobacco Use ??? Smoking status: Never Smoker ??? Smokeless tobacco: Never Used Substance Use Topics ??? Alcohol use: Yes Comment: minimal Alcohol Use 07/27/2020 Prescreen: >3 drinks/day or >7 drinks/week? No [...] Surgical History: Procedure Laterality Date ??? C CANCER REGISTRY COORDINATOR PROCEDURE DATE: [id number] vag del. ??? C CANCER REGISTRY COORDINATOR PROCEDURE DATE: 2000 tubal ligation ??? C CANCER REGISTRY COORDINATOR PROCEDURE DATE: 1994 D&C ??? C VAGINAL HYSTERECTOMY 01/30/06 ??? CARDIAC SURGERY 06/2006 heart defect repair ??? HC KNEE SCOPE,MED/LAT MENISECTOMY 08/04/13 LT ??? HEART CATH, CLOSURE ATRIAL SEPTAL DEFECT 06/20/06 amplatzer septal occluder- serial #[id number] ??? RW CANCER REGISTRY COORDINATOR (ABSTRACTED) pneumonia several times ??? SURGICAL PATHOLOGY EXAM 02/2012 excision of lipoma on chest wall Social History Tobacco Use ??? Smoking status: Never Smoker ??? Smokeless tobacco: Never Used Substance Use Topics ??? Alcohol use: Yes Comment: minimal Family History Problem Relation Age [...] ??? Blood Disease No family hx of Mammogram Screening: Patient under age 50, mutual decision reflected in health maintenance. Pertinent mammograms are reviewed under the imaging tab. History of abnormal Pap smear: Status post benign hysterectomy. Health Maintenance and Surgical History updated. Reviewed and updated as needed this visit by clinical staff Tobacco Allergies Meds Problems Med Hx Surg Hx Fam Hx Soc Hx Reviewed and updated as needed this visit by Provider Tobacco Allergies Meds Problems Med Hx Surg Hx Fam Hx Past Medical History: Diagnosis Date ??? Acute posthemorrhagic anemia ??? ASD (atrial septal defect) 02/07/2017 ??? 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 Broncho-pulmonary dysplasia ??? Cervicalgia ??? COPD (chronic obstructive pulmonary disease) (H) ??? DDD (degenerative disc disease), cervical 02/07/2017 ??? Depressive disorder 2001 ??? Lizy-Danlos syndrome ??? Excessive or frequent menstruation 01/31/06 Hospitalized ??? Generalized anxiety disorder 10/08/2007 ??? Hemorrhage complicating a procedure ??? Herniated cervical disc 02/07/2017 ??? History of blood transfusion 1994 ??? Major depressive disorder, recurrent episode, severe (H) 10/22/2007 Problem list name updated by automated process. Provider to review ??? Pain in joint, pelvic region and thigh ??? Premature identical twin sister ??? Uncomplicated asthma Past Surgical History: Procedure Laterality Date ??? C CANCER REGISTRY COORDINATOR PROCEDURE DATE: [id number] vag del. ??? C CANCER REGISTRY COORDINATOR PROCEDURE DATE: 2000 tubal ligation ??? C CANCER REGISTRY COORDINATOR PROCEDURE DATE: 1994 D&C ??? C VAGINAL HYSTERECTOMY 01/30/06 ??? CARDIAC SURGERY 06/2006 heart defect repair ??? HC KNEE SCOPE,MED/LAT MENISECTOMY 08/04/13 LT ??? HEART CATH, CLOSURE ATRIAL SEPTAL DEFECT 06/20/06 amplatzer septal occluder- serial #[id number] ??? RW CANCER REGISTRY COORDINATOR (ABSTRACTED) pneumonia several times ??? SURGICAL PATHOLOGY EXAM 02/2012 excision of lipoma on chest wall Review of Systems Gastrointestinal: Positive for abdominal pain. Genitourinary: Positive for pelvic pain. OBJECTIVE: BP 110/70 (BP Location: Right arm, Patient Position: Sitting, Cuff Size: Adult Regular) Pulse 65 Temp 97.7 ??F (36.5 ??C) (Oral) Ht 1.74 m (5' 8.5) Wt 95.3 kg (210 lb) LMP 01/07/2006 SpO2 100% BMI 31.47 kg/m?? Physical Exam GENERAL: healthy, alert and [...] normal/bright Diagnostic Test Results: Labs reviewed in [facility] ASSESSMENT/PLAN: 1. Routine general medical examination at a health care facility Will schedule mammogram. 2. Abdominal pain, epigastric Discussed options. Likely needs EGD. Start with labs today. She will then talk with GI about symptoms and additional eval. Pt agrees with plan and verbalized understanding. - TSH with free T4 reflex - CBC with platelets - Comprehensive metabolic panel (BMP + Alb, Alk Phos, ALT, AST, Total. Bili, TP) - Lipid panel reflex to direct LDL Fasting - IgA - Tissue transglutaminase abhi IgA and IgG - GASTROENTEROLOGY ADULT REF CONSULT ONLY; Future 3. Encounter for screening mammogram for breast cancer - *MA Screening Digital Bilateral; Future Patient has been advised of split billing requirements and indicates understanding: Yes COUNSELING: Reviewed preventive health counseling, as reflected in patient instructions Estimated body mass index is 31.47 kg/m?? as calculated from the following: Height as of this encounter: 1.74 m (5' 8.5). Weight as of this encounter: 95.3 kg (210 lb). She reports that she has never smoked. She has never used smokeless tobacco. Counseling Resources: ATP IV Guidelines Pooled Cohorts Equation Calculator Breast Cancer Risk Calculator BRCA-Related Cancer Risk Assessment: FHS-7 Tool FRAX Risk Assessment ICSI Preventive Guidelines Dietary Guidelines for Americans, 2010 USDA's MyPlate ASA Prophylaxis Lung CA Screening Denise Woodson APRN CNP [facility] STANT DEAN documented in this encounter Plan of Treatment Scheduled Referrals Name Type Priority Associated Diagnoses Order S chedule GASTROENTEROLOGY ADULT REF Referral Routine Abdominal pain , Expected: CONSULT ONLY epigastric 07/27/2020, Expires: 2020 documented as of this encounter Procedures Procedure Name Priority Date/Time Associated Comments Diagnosis TSH WITH FREE T4 REFLEX Routine 07/27/2020 3:46 Abdominal pain , Results for this PM ASSISTANT DEAN epigastric procedure are i n the results section. TISSUE TRANSGLUTAMINASE Routine 07/27/2020 3:46 Abdominal pain , Results for this ABHI IGA AND IGG PM ASSISTANT DEAN epigastric procedure ar e in the results section. LIPID REFLEX TO DIRECT Routine 07/27/2020 3:46 Abdominal pain, Results for this LDL PANEL PM ASSISTANT DEAN epigastric procedure are i n the results section. IGA Routine 07/27/2020 3:46 Abdominal pain, Results f or this PM ASSISTANT DEAN epigastric procedure are i n the results section. COMPREHENSIVE METABOLIC Routine 07/27/2020 3:46 Abdominal pain , Results for this PANEL PM ASSISTANT DEAN epigastric procedure are i n the results section. CBC WITH PLATELETS Routine 07/27/2020 3:46 Abdominal pain, Res ults for this PM ASSISTANT DEAN epigastric procedure are i n the results section. documented in this encounter Results Tissue transglutaminase abhi IgA and IgG (07/27/2020 3:46 PM ASSISTANT DEAN) [facility] gist Method Time Signature Tissue 1 <7 U/mL 08/01/2020 [facility] Transglutaminase 2:08 PM ASSISTANT DEAN [place] [facility] Antibody [facility] Comment: Negative The tTG-IgA assay has limited utility fo r patients with decreased levels of IgA. Screening for celiac disease should include IgA testing to rule out selective IgA deficiency and to guide se lection and interpretation of serological testing. tTG-IgG testing may be positive in celiac disease patients with IgA deficiency. Tissue Transglutaminase Abhi 1 <7 U/mL 08/01/2020 2 :08 PM ASSISTANT DEAN [facility] IgG [facility] Comment: Negative Specimen Anatomical Collection Method Collection Time Receive d Time (Source) Location / / Volume Laterality Blood specimen 07/27/2020 3:46 PM 020 3:47 (specimen) ASSISTANT DEAN PM ASSISTANT DEAN Denise Woodson APRN [facility] LAB - BLOOD ORDERABLES Performing Organization Address City/[facility]/ZIP Code Phon e Number [facility] [address] IgA (07/27/2020 3:46 PM ASSISTANT DEAN) athologist Signature IGA 366 84 - 499 07/29/2020 [facility] mg/dL 11:01 AM [facility] Specimen Anatomical Collection Method Collection Time Receive d Time (Source) Location / / Volume Laterality Blood specimen 07/27/2020 3:46 PM 020 3:47 (specimen) ASSISTANT DEAN PM ASSISTANT DEAN Denise Woodson APRN [facility] LAB - BLOOD ORDERABLES Performing Organization Address City/[facility] Code Phon e Number [facility] [address] (ABNORMAL) Lipid panel reflex to direct LDL Fasting (07/27/2020 3:46 PM ASSISTANT DEAN) athologist Signature Cholesterol 238 (H) <200 mg/dL 07/28/2020 [facility] 4:52 PM [facility] Comment: Desirable: <200 mg/dl Triglycerides 136 <150 mg/dL 07/28/2020 4:52 PM [facility] Comment: Fasting specimen HDL Cholesterol 61 >49 mg/dL 07/28/2020 4:52 PM [facility] LDL Cholesterol 150 (H) <100 mg/dL 07/28/2020 4:52 PM [facility] Calculated [facility] Comment: Above desirable: ??100-129 mg/dl Borderline High: ??130-159 mg/dL High: ? 160-189 mg/dL Very high: ? >189 mg/dl Non HDL Cholesterol 177 (H) <130 mg/dL 07/28/2020 4:52 PM [facility] ASSISTANT DEAN [place] Comment: Above Desirable: ??130-159 mg/dl Borderline high: ??160-189 mg/dl High: ? 190-219 mg/dl Very high: ? >219 mg/dl Specimen Anatomical Collection Method Collection Time Receive d Time (Source) Location / / Volume Laterality Blood specimen 07/27/2020 3:46 PM 020 3:47 (specimen) ASSISTANT DEAN PM ASSISTANT DEAN Denise Woodson APRN [facility] LAB - BLOOD ORDERABLES Performing Organization Address City/State/ZIP Code Phon e Number [facility] [address] [place] [address] Comprehensive metabolic panel (BMP + Alb, Alk Phos, ALT, AST, Total. Bili, TP) (07/27/2020 3:46 PM ASSISTANT DEAN) athologist Signature Sodium 137 133 - 144 07/28/2020 [facility] mmol/L 4:23 PM [facility] Potassium 3.8 3.4 - 5.3 07/28/2020 [facility] mmol/L 4:23 PM [facility] Chloride 104 94 - 109 07/28/2020 [facility] mmol/L 4:23 PM [facility] Carbon Dioxide 29 20 - 32 07/28/2020 [facility] CS mmol/L 4:46 PM [facility] Anion Gap 4 3 - 14 07/28/2020 [facility] mmol/L 4:46 PM [facility] Glucose 86 70 - 99 07/28/2020 [facility] mg/dL 4:46 PM [facility] Comment: Fasting specimen Urea Nitrogen 13 7 - 30 mg/dL 07/28/2020 4:46 PM [facility] Creatinine 0.81 0.52 - 1.04 mg/dL 07/28/2020 4:46 PM CS T [facility] GFR Estimate 88 >60 07/28/2020 4:46 PM [facility] mL/min/{1.73_m2} [place] [place] Comment: Non GFR Calc Starting 09/02/2018, serum creatinine ba sed estimated GFR (eGFR) will be calculated using the Chronic Kidney Dise ase Epidemiology Collaboration (CKD-EPI) equation. GFR Estimate If >90 >60 mL/min/{1.73_m2} 07/28/2020 4: 46 PM [facility] Black [facility] Comment: GFR Calc Starting 09/02/2018, serum creatinine ba sed estimated GFR (eGFR) will be calculated using the Chronic Kidney Dise [facility] Epidemiology Collaboration (CKD-EPI) equation. Calcium 8.7 8.5 - 10.1 07/28/2020 4:46 PM [facility] mg/dL [facility] Bilirubin Total 0.8 0.2 - 1.3 mg/dL 07/28/2020 4:52 PM [facility] Albumin 3.7 3.4 - 5.0 g/dL 07/28/2020 4:52 PM [facility] Protein Total 7.3 6.8 - 8.8 g/dL 07/28/2020 4:52 PM [facility] Alkaline Phosphatase 68 40 - 150 U/L 07/28/2020 4:52 PM [facility] ALT 16 0 - 50 U/L 07/28/2020 4:52 PM [facility] AST 12 0 - 45 U/L 07/28/2020 4:52 PM [facility] Specimen Anatomical Collection Method Collection Time Receive d Time (Source) Location / / Volume Laterality Blood specimen 07/27/2020 3:46 PM 020 3:47 (specimen) ASSISTANT DEAN PM ASSISTANT DEAN Denise Woodson APRN [facility] - BLOOD ORDERABLES Performing Organization Address City/State/ZIP Code Phon e Number [facility] [address] [place] [address] (ABNORMAL) CBC with platelets (07/27/2020 3:46 PM ASSISTANT DEAN) P athologist Signature WBC 12.0 (H) 4.0 - 11.0 07/27/2020 [facility] 10e9/L 4:36 PM [facility] Comment: Results confirmed by repeat lillian t RBC Count 4.59 3.8 - 5.2 10e12/L 07/27/2020 4:36 PM ASSISTANT DEAN [facility] [place] Hemoglobin 13.9 11.7 - 15.7 g/dL 07/27/2020 4:36 PM ASSISTANT DEAN [facility] [place] Hematocrit 42.8 35.0 - 47.0 % 07/27/2020 4:36 PM [facility]AN [facility] [place] MCV 93 78 - 100 fl 07/27/2020 4:36 PM [facility] [place] MCH 30.3 26.5 - 33.0 pg 07/27/2020 4:36 PM ASSISTANT DEAN [facility] MCHC 32.5 31.5 - 36.5 g/dL 07/27/2020 4:36 PM ASSISTANT DEAN [facility] RDW 12.0 10.0 - 15.0 % 07/27/2020 4:36 PM ASSISTANT DEAN [facility] [facility] [place] Platelet Count 218 150 - 450 10e9/L 07/27/2020 4:36 PM ASSISTANT DEAN [facility] Specimen Anatomical Collection Method Collection Time Receive d Time (Source) Location / / Volume Laterality Blood specimen 07/27/2020 3:46 PM 020 3:47 (specimen) ASSISTANT DEAN PM ASSISTANT DEAN Denise Woodson APRN [facility] LAB - BLOOD ORDERABLES Performing Organization Address City/[facility]/ZIP Code Phon e Number [facility] [address] [place], [place] [address] TSH with free T4 reflex (07/27/2020 3:46 PM ASSISTANT DEAN) P athologist Signature TSH 3.32 0.40 - 4.00 07/28/2020 [facility] mU/L 5:01 PM ASSISTANT DEAN [facility] Specimen Anatomical Collection Method Collection Time Receive d Time (Source) Location / / Volume Laterality Blood specimen 07/27/2020 3:46 PM 020 3:47 (specimen) ASSISTANT DEAN PM ASSISTANT DEAN Denise Woodson APRN [facility] - BLOOD ORDERABLES Performing Organization Address City/State/ZIP Code Phon e Number [facility] [address] [place] [address] documented in this encounter Visit Diagnoses Diagnosis Routine general medical examination at a health care facility - Primary Abdominal pain, epigastric Encounter for screening mammogram for br east cancer documented in this encounter Additional Health Concerns Assessment Noted Time PHQ-9 Depression Total Score: 0 06/15/2019 7:09 PM CDT documented as of this encounter Care Teams Game Agent Relationship Specialty Start Date End Date Yung Madrigal MD PCP - Orthopaedics Orthopedics 08/26/12 RETIRED Winston Villatoro, OD PCP - Ophthalmology Ophthalmology 02/11/13 [facility] [address] [place] [address] Clara Cornell MD PCP - General Internal Medicine 02/07/17 09/20/20 Denise Woodson Ra, STEAM TURBINE OPERATOR Assigned PCP 07/17/20 [facility] [address] [place] [id number] documented as of this encounter
--- OUTSIDE RECORDS SUMMARY | 2022-08-29 12:09 | XMS_ITS | Encounter Summary ---
:1975 Author Organization [place] Address [facility] [place] [address] Care Team Providers Name Role Phone Yung Madrigal MD Unavailable Unavailable Winston Villatoro OD Unavailable Serum, Clara Garland MD Primary Care Provider [phone] Serum, Clara Garland MD Unavailable [phone] Serum, Clara Garland MD Unavailable [phone] Reason for Referral Referral not Required - Closed Specialty Diagnoses / Procedures Referred By Contact Refer red To Contact Diagnoses Lizy-Danlos syndrome DDD (degenerative disc disease), cervical Herniated cervical disc Clara Cornell [facility] [address] [facility] [address] [place] [address] [place] [address] Phone: Fax: Referral ID Status Reason Start Date Expiration Date Visits Requ ested Visits Authorized [id number] Closed 2018 2019 1 1 Y CHILDHOOD DIRECTOR Reason for Visit Reason Comments Neck pain Encounter Details Date Type Department Care Team Description 2018 Office Visit Clara Rm-D anlos syndrome (Primary Dx); Clinic [place] Garland MD DDD (degenerative disc disease), cervica l; [address] [facility] Herniated cervical disc; [facility] Thyroid function test abnormal; [address] [facility] [place] [address] [address] [phone] [place], [place] [address] Social History Tobacco Use Types Packs/Day Years Used Date Smoking Tobacco: Never Smokeless Tobacco: Never Alcohol Use Standard Drinks/Week Comments Yes 0 (1 standard drink = 0.6 oz pure alcoho l) minimal Sex Assigned at Date Recorded Not on file documented as of this encounter Last Filed Vital Signs Vital Sign Reading Time Taken Comments Blood Pressure 134/82 2018 1:02 PM EARLY CHILDHOOD DIRECTOR Pulse 72 2018 1:02 PM EARLY CHILDHOOD DIRECTOR Temperature 36.7 ??C (98.1 ??F) 2018 1:02 PM EARLY CHILDHOOD DIRECTOR Respiratory Rate - - Oxygen Saturation 99% 2018 1:02 PM EARLY CHILDHOOD DIRECTOR Inhaled Oxygen Concentration - - Weight 98.1 kg (216 lb 3.2 oz) 2018 1:02 PM EARLY CHILDHOOD DIRECTOR Height 174.6 cm (5' 8.75) 2018 1:02 PM EARLY CHILDHOOD DIRECTOR Body Mass Index 32.16 2018 1:02 PM EARLY CHILDHOOD DIRECTOR documented in this encounter Patient Instructions Patient InstructionsSerumClara MD - 2018 1:00 PM EARLY CHILDHOOD DIRECTOR 1. Referral to pain clinic 2. Labs today: autoimmune screening test, thyroid tests, sed rate (inflammation test) Y CHILDHOOD DIRECTOR documented in this encounter Progress Notes Clara Cornell MD - 2018 1:00 PM CST SUBJECTIVE: Alcon Zamora is a 43 year old female who presents to clinic today for the following health issues: Neck Pain ?? Duration: chronic ?? Description: Location: back center of neck Radiation: into the right neck, into the right shoulder, into the left neck and nto the left shoulder ?? Intensity: moderate ?? Accompanying signs and symptoms: none ?? History (similar episodes/previous evaluation): would like referral to pain doctor ?? Precipitating or alleviating factors: None ?? 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 Has chronic neck pain with flares intermittently. Signed up with functional nutrition through [facility]. Will be starting an elimination diet with the dye lab technician. They recommended see Dr. Anthony Gordillo at pain clinic at [facility] who has experience working with patients with EDS. Needs referral. Patient noted with last flare she saw Karly and was prescribed medrol dose pack. She felt the best she has in years with taking the steroid and wonders if this is a longer term option. Saw [facility] in January for f/u of ASD closure. They did a bunch of lab work. When reviewing lab work noted elevated TSH with very elevated thyroid peroxidase antibody. Patient is not on thyroid replacement and was not aware of these plans with no plan to repeat labs. Patient reports weight gain over the last6 months. Reviewed and updated as needed this visit by clinical staff Tobacco Allergies Meds Problems Med Hx Surg Hx Fam Hx Soc Hx Reviewed and updated as needed this visit by Provider Tobacco Allergies Meds Problems Med Hx Surg Hx Fam Hx ROS: Constitutional, HEENT, cardiovascular, pulmonary, gi and gu systems are negative, except as otherwise noted. OBJECTIVE: BP 134/82 (BP Location: Right arm, Patient Position: Sitting, Cuff Size: Adult Regular) Pulse 72 Temp 98.1 ??F (36.7 ??C) (Tympanic) Ht 1.746 m (5' 8.75) Wt 98.1 kg (216 lb 3.2 oz) LMP 01/07/2006 SpO2 99% BMI 32.16 kg/m?? Body mass index is 32.16 kg/m??. General Appearance: healthy, alert and no distress Eyes: no discharge, erythema. Normal pupils. Respiratory: lungs clear to auscultation - no rales, rhonchi or wheezes. Cardiovascular: regular rate and rhythm, normal S1 S2, no S3 or S4 and no murmur, click or rub. No peripheral edema. Skin: no rashes or lesions. Well perfused and normal turgor. Diagnostic Test Results: Results for orders placed or performed in visit on 09/10/18 (from the past 24 hour(s)) Erythrocyte sedimentation rate auto Result Value Ref Range Sed Rate 15 0 - 20 mm/h ASSESSMENT/PLAN: (Q79.6) Lizy-Danlos syndrome (primary encounter diagnosis) (M50.30) DDD (degenerative disc disease), cervical (M50.20) Herniated cervical disc Comment: working with functional nutrition Plan: PAIN MANAGEMENT REFERRAL - requesting referral to [facility] - Dr. Gordillo (R94.6) Thyroid function test abnormal Comment: found on chart review. Recommend recheck. At risk for autoimmune thyroid disease with elevated thyroid peroxidase ab Plan: TSH, T4, free - recheck TSH/free T4 today - if normal, would check annually (M25.50) Multiple joint pain Comment: do not see previous autoimmune work up. Given improvement in body pain with steroids, recommend check a few labs. ESR negative Plan: Anti Nuclear Fariba IgG by IFA with Reflex, Erythrocyte sedimentation rate auto - BETTY pending FUTURE APPOINTMENTS: - Follow-up for annual visit or as needed Clara Cornell [facility] [place] Y CHILDHOOD DIRECTOR documented in this encounter Plan of Treatment Scheduled Referrals Name Type Priority Associated Diagnoses Order S chedule PAIN MANAGEMENT REFERRAL Referral Routine Lizy- Danlos syndrome Ordered: 2018 DDD (degenerative disc disease), cervic al Herniated cervical disc documented as of this encounter Procedures Procedure Name Priority Date/Time Associated Comments Diagnosis ANTI NUCLEAR FARIBA IGG Routine 2018 1:31 PM Multiple joint pain Results for this BY IFA WITH REFLEX EARLY CHILDHOOD DIRECTOR procedure are in the results section. TSH Routine 2018 1:31 PM Thyroid function Resul ts for this EARLY CHILDHOOD DIRECTOR test abnormal procedure are in the results section. T4 FREE Routine 2018 1:31 PM Thyroid function Resul ts for this EARLY CHILDHOOD DIRECTOR test abnormal procedure are in the results section. ERYTHROCYTE Routine 2018 1:31 PM Multiple joint pain Re sults for this SEDIMENTATION RATE EARLY CHILDHOOD DIRECTOR procedure are in AUTO the results section. documented in this encounter Results Erythrocyte sedimentation rate auto (2018 1:31 PM EARLY CHILDHOOD DIRECTOR) P athologist Signature Sed Rate 15 0 - 20 mm/h 2018 [place] 2:09 PM EARLY CHILDHOOD DIRECTOR CLINICS [place] Specimen Anatomical Collection Method Collection Time Receive d Time (Source) Location / / Volume Laterality Blood specimen 2018 1:31 PM 018 1:36 (specimen) EARLY CHILDHOOD DIRECTOR PM EARLY CHILDHOOD DIRECTOR Clara Cornell MD LAB - BLOOD ORDERABLES Performing Organization Address City/[facility]/ZIP Code Phon e Number [facility] [address] [place] [address] Anti Nuclear Fariba IgG by IFA with Reflex (2018 1:31 PM EARLY CHILDHOOD DIRECTOR) [facility] gist Method Time Signature BETTY interpretation Negative NEG^Negat 09/11/2018 [facility] 2:50 PM [facility] Comment: ? Reference range: <1:40 ??NEGATIVE 1:40 - 1:80 ??BORDERLINE POSITIVE >1:80 POSITIVE Specimen Anatomical Collection Method Collection Time Receive d Time (Source) Location / / Volume Laterality Blood specimen 2018 1:31 PM 018 1:36 (specimen) EARLY CHILDHOOD DIRECTOR PM EARLY CHILDHOOD DIRECTOR Clara Cornell MD LAB - BLOOD ORDERABLES Performing Organization Address City/State/ZIP Code Phon e Number [facility] [address] [place] [address] [facility] T4, free (2018 1:31 PM EARLY CHILDHOOD DIRECTOR) P athologist Signature T4 Free 1.04 0.76 - 1.46 09/11/2018 [facility] ng/dL 9:46 AM EARLY CHILDHOOD DIRECTOR [facility] Specimen Anatomical Collection Method Collection Time Receive d Time (Source) Location / / Volume Laterality Blood specimen 2018 1:31 PM 018 1:36 (specimen) EARLY CHILDHOOD DIRECTOR PM EARLY CHILDHOOD DIRECTOR Clara Cornell MD LAB - BLOOD ORDERABLES Performing Organization Address City/[facility]/ZIP Code Phon e Number [facility] [address] [place] [address] TSH (2018 1:31 PM EARLY CHILDHOOD DIRECTOR) P athologist Signature TSH 2.70 0.40 - 4.00 09/11/2018 [facility] mU/L 9:46 AM EARLY CHILDHOOD DIRECTOR [facility] Specimen Anatomical Collection Method Collection Time Receive d Time (Source) Location / / Volume Laterality Blood specimen 2018 1:31 PM 018 1:36 (specimen) EARLY CHILDHOOD DIRECTOR PM EARLY CHILDHOOD DIRECTOR Clara Cornell MD LAB - BLOOD ORDERABLES Performing Organization Address City/State/ZIP Code Phon e Number [facility] [address] [place] [address] documented in this encounter Visit Diagnoses Diagnosis Lizy-Danlos syndrome - Primary DDD (degenerative disc disease), cervica l Degeneration of cervical intervertebral disc Herniated cervical disc Displacement of cervical intervertebral disc without myelopathy Thyroid function test abnormal Nonspecific abnormal results of thyroid function study Multiple joint pain Pain in joint, multiple sites documented in this encounter Additional Health Concerns Assessment Noted Time PHQ-9 Depression Total Score: 0 02/08/2017 7:29 AM CDT documented as of this encounter Care Teams Clinical Research Administrator Relationship Specialty Start Date End Date Yung Madrigal MD PCP - Orthopaedics Orthopedics 08/26/12 RETIRED Winston Villatoro, AMELIE PCP - Ophthalmology Ophthalmology 02/11/13 [facility] [address] [facility] [address] [place] [address] Clara Cornell MD PCP - General Internal Medicine 02/07/17 09/20/20 Clara Cornell MD PCP - Assigned PCP 01/17/17 11/18/[address] [id number] Clara Cornell MD Assigned PCP 01/17/17 07/16/[address] [address] documented as of this encounter
--- OUTSIDE RECORDS SUMMARY | 2022-08-29 12:09 | XMS_ITS | Encounter Summary ---
:1975 Author Organization [place] Address [address] [place] [address] Care Team Providers Name Role Phone Yung Madrigal MD Unavailable Unavailable Winston Villatoro OD Unavailable Serum, Clara Garland MD Primary Care Provider [phone] Serum, Clara Garland MD Unavailable [phone] Reason for Visit Reason Comments Physical Encounter Details Date Type Department Care Team Description 06/15/[address] [facility] Clara Cornell Routine general medical examination at a health care facility (Primary Dx); Clinic [place] Garland MD Mild recurrent major depression (H); [address] [facility] ed anxiety disorder; [facility] Insomnia, unspecified type; [address] [facility] Lizy-Danlos syndrome; [place] [address] RD Chronic rhinitis; [phone] [place], [place] [address] Moderate persistent asthma without compl ication; [phone] Anti-TPO antibo dies present; (Work) Needs flu shot Social History Tobacco Use Types Packs/Day Years Used Date Smoking Tobacco: Never Smokeless Tobacco: Never Alcohol Use Standard Drinks/Week Comments Yes 0 (1 standard drink = 0.6 oz pure alcoho l) minimal Sex Assigned at Date Recorded Not on file documented as of this encounter Last Filed Vital Signs Vital Sign Reading Time Taken Comments Blood Pressure 112/72 06/15/2019 5:15 PM CDT Pulse 70 06/15/2019 5:15 PM CDT Temperature 37.6 ??C (99.6 ??F) 06/15/2019 5:15 PM CDT Respiratory Rate - - Oxygen Saturation 98% 06/15/2019 5:15 PM CDT Inhaled Oxygen Concentration - - Weight 89.6 kg (197 lb 9.6 oz) 06/15/2019 5:15 PM CDT Height 174.6 cm (5' 8.75) 06/15/2019 5:15 PM CDT Body Mass Index 29.39 06/15/2019 5:15 PM CDT documented in this encounter Patient Instructions Patient InstructionsBrenda Matos LPN - 06/15/2019 5:15 PM CDT Preventive Health Recommendations Female Ages [...] six months for an exam and cleaning. 1. Flu shot today 2. Refilled medications 3. Good job with weight loss! Continue with low carb, low sugar diet 4. Consider checking thyroid function every 1-2 years due to thyroperoxidase antibodies (TPO) - put you at higher risk for autoimmune thyroid disease 5. Repeat mammogram in January I will be changing clinics to the [facility] in [place]. My last day will be 08/12/2019. I will send a message to Delisa Enrique and change her to your primary if she is ok with. It has been my pleasure to provide your care over the last few years! Sincerely, Clara Cornell MD Internal Medicine/Pediatrics documented in this encounter Progress Notes Clara Cornell MD - 06/15/2019 5:15 PM CDT SUBJECTIVE: CC: Alcon Zamora is an 43 year old woman who presents for preventive health visit. Healthy Habits: Getting at least 3 servings of Calcium per day: Yes Bi-annual eye exam: Yes Dental care twice a year: Yes Sleep apnea or symptoms of sleep apnea: None Diet: Other Frequency of exercise: None Taking medications regularly: Yes Medication side effects: None PHQ-2 Total Score: 0 Additional concerns today: No Mid- March started low carb, low sugar diet. Feels a lot better. Pain is a lot better. Losing weight.Has lost about 20 lbs so far. Clothes feel looser. Had previously tried elimination diet. Would get more bloating with that. 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 ASD closed in 2005. BPD/Asthma: controlled with Breo inhaler. Uses albuterol infrequently. Depression and Anxiety Follow-Up ?? How are you doing with your depression since your last visit? No change ?? How are you doing with your anxiety since your last visit? No change ?? Are you having other symptoms that might be associated with depression or anxiety? No ?? Have you had a significant life event? No ?? Do you have any concerns with your use of alcohol or other drugs? No Continues on citalopram 20 mg daily. Feels controlled. Uses trazodone for sleep. Was previously prescribed 2-2.5 pills, but has been able to just use 2 pills since starting magnesium. Social History Tobacco Use ??? Smoking status: Never Smoker ??? Smokeless tobacco: Never Used Substance Use Topics ??? Alcohol use: Yes Comment: minimal ??? Drug use: No PHQ 02/07/2017 PHQ-9 Total Score 0 Q9: Thoughts of better off /self-harm past 2 weeks Not at all No flowsheet data found. No flowsheet data found. No flowsheet data found. Suicide Assessment Five-step Evaluation and Treatment (SAFE-T) Today's PHQ-2 Score: PHQ-2 (??1999 Pfizer) 06/15/2019 Q1: Little interest or pleasure in doing things 0 Q2: Feeling down, depressed or hopeless 0 PHQ-2 Score 0 Q1: Little interest or pleasure in doing things Not at all Q2: Feeling down, depressed or hopeless Not at all PHQ-2 Score 0 Abuse: Current or Past(Physical, Sexual or Emotional)- No Do you feel safe in your environment? Yes Social History Tobacco Use ??? Smoking status: Never Smoker ??? Smokeless tobacco: Never Used Substance Use Topics ??? Alcohol use: Yes Comment: minimal If you drink alcohol do you typically have >3 drinks per day or >7 drinks per week? No Alcohol Use 06/15/2019 Prescreen: >3 drinks/day or >7 drinks/week? No Prescreen: >3 drinks/day or >7 drinks/week? - No flowsheet data found. Reviewed orders with patient. Reviewed health maintenance [...] major depression (H) ??? Insomnia, unspecified type Past Surgical History: Procedure Laterality Date ??? C AUTOMATION SALES MANAGER PROCEDURE DATE: vag del. ??? C AUTOMATION SALES MANAGER PROCEDURE DATE: 2000 tubal ligation ??? C AUTOMATION SALES MANAGER PROCEDURE DATE: 1994 D&C ??? C VAGINAL HYSTERECTOMY 01/30/06 ??? CARDIAC SURGERY 06/2006 heart defect repair ??? HC KNEE SCOPE,MED/LAT MENISECTOMY 08/04/13 LT ??? HEART CATH, CLOSURE ATRIAL SEPTAL DEFECT 06/20/06 amplatzer septal occluder- serial #[id number] ??? RW AUTOMATION SALES MANAGER (ABSTRACTED) pneumonia several times ??? SURGICAL PATHOLOGY [...] this visit by clinical staff Tobacco Allergies Med Hx Surg Hx Fam Hx Soc Hx Reviewed and updated as needed this visit by Provider Review of Systems Constitutional: Negative for chills and fever. HENT: Negative for congestion and ear pain. Eyes: Negative for pain. Respiratory: Negative for cough. Cardiovascular: Negative for chest pain. Gastrointestinal: Negative for abdominal pain, constipation, diarrhea and hematochezia. Genitourinary: Negative for frequency and hematuria. Neurological: Negative for dizziness. Psychiatric/Behavioral: The patient is not nervous/anxious. All other systems reviewed and are negative. OBJECTIVE: BP 112/72 (BP Location: Right arm, Patient Position: Sitting, Cuff Size: Adult Regular) Pulse 70 Temp 99.6 ??F (37.6 ??C) (Tympanic) Ht 1.746 m (5' 8.75) Wt 89.6 kg (197 lb 9.6 oz) LMP 01/07/2006 SpO2 98% BMI 29.39 kg/m?? Physical Exam GENERAL: healthy, alert and no distress EYES: Eyes grossly normal to inspection, PERRL and conjunctivae and sclerae normal HENT: ear canals and TM's normal, nose and mouth without ulcers or lesions NECK: no adenopathy, no asymmetry, masses, or scars and thyroid normal to palpation RESP: lungs clear to auscultation - no rales, rhonchi or wheezes BREAST: declined CV: regular rate and rhythm, normal S1 S2, no S3 or S4, no murmur, click or rub, no peripheral edemaand peripheral pulses strong ABDOMEN: soft, nontender, no hepatosplenomegaly, no masses and bowel sounds normal MS: no gross musculoskeletal defects noted, no edema SKIN: no suspicious lesions or rashes NEURO: Normal strength and tone, mentation intact and speech normal PSYCH: mentation appears normal, affect normal/bright, anxious appearing Diagnostic Test Results: none ASSESSMENT/PLAN: 1. Routine general medical examination at a health care facility Pap not indicated due to hyst. Mammo UTD. Tdap UTD. Flu vaccine today. 2. Mild recurrent major depression (H) 3. Generalized anxiety disorder Well controlled. Continue citalopram 20 mg daily - citalopram (CELEXA) 20 MG tablet; Take 1 tablet (20 mg) by mouth daily Dispense: 30 tablet; Refill: 11 4. Insomnia, unspecified type Controlled. Continue trazodone 100 mg at bedtime and magnesium - traZODone (DESYREL) 50 MG tablet; Take 2 tablets (100 mg) by mouth At Bedtime Dispense: 60 tablet;Refill: 11 5. Lizy-Danlos syndrome With associated chronic neck pain. Some pain improvement with low carb/low sugar diet. Will continue. 6. Chronic rhinitis - fluticasone (FLONASE) 50 MCG/ACT nasal spray; Jay 2 sprays into both nostrils daily Dispense: 16g; Refill: 3 7. Moderate persistent asthma without complication Well controlled. H/o prematurity with BPD. Continue Breo, albuterol prn. - BREO ELLIPTA 200-25 MCG/INH Inhaler; Inhale 1 puff into the lungs daily Dispense: 1 Inhaler; Refill: 11 - albuterol (PROAIR HFA/PROVENTIL HFA/VENTOLIN HFA) 108 (90 Base) MCG/ACT inhaler; Inhale 2 puffs into the lungs every 4 hours as needed for shortness of breath / dyspnea or wheezing Dispense: 1 Inhaler; Refill: 3 8. 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 TSH also mildly abnormal at that time. Repeat testing normal. Recommend repeat TSH every 1-2 years as at increased risk for autoimmune thyroid disease with positive TPO antibodies. 9. Needs flu shot - ADMIN VACCINE, FIRST [28066] - INFLUENZA VACCINE IM > 6 MONTHS VAL[facility] IIV4 [28983] COUNSELING: Reviewed preventive health counseling, as reflected in patient instructions Special attention given to: Regular exercise Healthy diet/nutrition Immunizations ?? Vaccinated for: Influenza Estimated body mass index is 29.39 kg/m?? as calculated from the following: Height as of this encounter: 1.746 m (5' 8.75). Weight as of this encounter: 89.6 kg (197 lb 9.6 oz). Weight management plan: Discussed healthy diet and exercise guidelines reports that she has never smoked. She has never used smokeless tobacco. Counseling Resources: ATP IV Guidelines Pooled Cohorts Equation Calculator Breast Cancer Risk Calculator FRAX Risk Assessment ICSI Preventive Guidelines Dietary Guidelines for Americans, 2009 USDA's MyPlate ASA Prophylaxis Lung CA Screening Clara Cornell MD [facility] documented in this encounter Plan of Treatment Not on filedocumented as of this encounter Visit Diagnoses Diagnosis Routine general medical examination at a health care facility - Primary Mild recurrent major depression (H) Major depressive disorder, recurrent epi sode, mild Generalized anxiety disorder Insomnia, unspecified type Lizy-Danlos syndrome Chronic rhinitis Moderate persistent asthma without compl ication Unspecified asthma Anti-TPO antibodies present Other and unspecified nonspecific immuno logical findings Needs flu shot Need for prophylactic vaccination and in oculation against influenza documented in this encounter Additional Health Concerns Assessment Noted Time PHQ-9 Depression Total Score: 0 06/15/2019 7:09 PM CDT documented as of this encounter Care Teams Implementation Consultant Relationship Specialty Start Date End Date Yung Madrigal MD PCP - Orthopaedics Orthopedics 08/26/12 RETIRED Winston Villatoro OD PCP - Ophthalmology Ophthalmology 02/11/13 [facility] [address] [facility] [address] [place] [address] Clara Cornell MD PCP - General Internal Medicine 02/07/17 09/20/20 Clara Cornell MD Assigned PCP 01/17/17 07/16/[address] [address] documented as of this encounter
--- OUTSIDE RECORDS SUMMARY | 2022-08-29 12:09 | XMS_ITS | Encounter Summary ---
:1975 Author Organization [place] Address [address] [facility] [place] [address] Care Team Providers Name Role Phone Yung Madrigal MD Unavailable Unavailable Winston Villatoro OD Unavailable Denise Woodson Ra, APRN WELL LOGGING MUD ANALYSIS CAPTAIN Unavailable [phone] Denise Woodson Ra, APRN WELL LOGGING MUD ANALYSIS CAPTAIN Primary Care Provider [phone] Reason for Visit Reason Comments URI sore throat, fatigue, cough has been seen times 2 at [place] 09/16/2020 and then 02/17/[address] was advised it is a viral illness. pt is concerned about pneumonia Encounter Details Date Type Department Care Team Description 09/21/2020 Virtual Visit [facility] Chelsy Barr y acquired pneumonia of right middle lobe of lung (Primary Dx); Clinic Ron Goddard MD Moderate persistent asthma without compl ication; [address] ASD (atrial septal defect) [place] [address] [phone] Social History Tobacco Use Types Packs/Day Years Used Date Smoking Tobacco: Never Smokeless Tobacco: Never Alcohol Use Standard Drinks/Week Comments Yes 0 (1 standard drink = 0.6 oz pure alcoho l) minimal Sex Assigned at Date Recorded Not on file COVID-19 Exposure Response Date Recorded In the last month, have you been in contact with No / Unsure 09/21/2020 12:04 PM PINION SORTER someone who was confirmed or suspected to have Coronavirus / COVID-19? documented as of this encounter Progress Notes Chelsy Barr MD - 09/21/2020 1:30 PM CST Alcon Zamora is a 45 year old female who is being evaluated via a billable telephone visit. What phone number would you like to be contacted at? [phone] How would you like to obtain your AVS? MyChart Assessment & Plan Community acquired pneumonia of right middle lobe of lung Pt seen in in [facility], there was no mention of pneumonia at her visit and no meds were prescribed. She is still not feeling well and is concerned about this diagnosis. She was not treated by urgent care; Given reviewed records and XRay results, and ongoing symptoms, opted to initiate antibiotics for community acquired pneumonia. - azithromycin (ZITHROMAX) 250 MG tablet; Take 2 tablets (500 mg) by mouth daily for 1 day, THEN 1 tablet (250 mg) daily for 4 days. - guaiFENesin (MUCINEX) 600 MG 12 hr tablet; Take 2 tablets (1,200 mg) by mouth 2 times daily for 10days No evidenc of respiratory compromise over the phone; no wheezes; speaking in full sentences, etc. (J45.40) Moderate persistent asthma without complication Comment: given hx of asthma, increased risk for infection exacerbation Plan: pt has inhaler at home if needed. (Q21.1) ASD (atrial septal defect) Comment: unable to comment on cardiac exam- virtual visit. Plan: no change in theapy Review of external notes as documented above Review of prior external note(s) from - Outside records from Urgent care records from [facility] including XRay results Review of the result(s) of each unique test - XRay and labs done recently 30 minutes spent on the date of the encounter doing chart review, review of outside records, review of test results, interpretation of tests, patient visit and documentation BMI: Estimated body mass index is 31.47 kg/m?? as calculated from the following: Height as of 07/27/20: 1.74 m (5' 8.5). Weight as of 07/27/20: 95.3 kg (210 lb). Weight management plan: Discussed healthy diet and exercise guidelines Complete course of antibiotics and follow up if not feeling better. Return in about 2 weeks (around 10/05/2020) for if symptoms fail to improve; then reassess.. Chelsy Barr MD Internal Medicine [facility] RON Zamora is a 45 year old who presents to clinic today for the following health issues HPI Emergency follow up [facility] 09/16/2020 and 09/19/2020 COVID negtive Chest x ray and Ct done on 09/19/2020 See scanned copies of reports pt attached via [employer]. Has inhaler but has not used in last 1-2 weeks Concern - URI and is concerned for pneumonia Onset: 09/16/2020 Description: cough, congestion, sore throat, fatigue Intensity: moderate Progression of Symptoms: same Accompanying Signs & Symptoms: as noted Previous history of similar problem: yes was seen at [facility] on 09/16/2020 and 09/19/[address] CT done on 09/19/2020 Pt is trying to upload the information she received. Precipitating factors: Worsened by: nothing Alleviating factors: Improved by: nothing Therapies tried and outcome: was advised it was viral and no specific treatment recommended. 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 She has not been hospitalized for over 20 years ago; reprot of CXR indicated RML pneumonia and mild diffuse patchy opacities bilaterally CV: NEGATIVE for chest pain, palpitations or peripheral edema GI: NEGATIVE for nausea, abdominal pain, heartburn, or change in bowel habits : labs included UA with trace blood and protein; blood: Albumin 4.3 and Protein 7.5 MUSCULOSKELETAL: NEGATIVE for significant arthralgias or myalgia HEME/ALLERGY/IMMUNE: NEGATIVE for bleeding problems PSYCHIATRIC: NEGATIVE for changes in mood or affect Blood work reviewed as found on scanned documents. No worrisome findings; reviewed sachin that pt concerned about. Reference ranges were not included but likely minimally elevated. BNP reported as 147, ALT 43 AST 35 (N) CXR : see scan; no actual Xray is available for review. Objective Vitals: No vitals were obtained today due to virtual visit. Physical Exam healthy, alert, no distress and fatigued PSYCH: Alert and oriented times 3; coherent speech, normal rate and volume, able to articulate logical thoughts, able to abstract reason, no tangential thoughts, no hallucinations or delusions Her affect is flat RESP: No cough, no audible wheezing, able to talk in full sentences Remainder of exam unable to be completed due to telephone visits CXR - Report reviewed and interpreted by me Phone call duration: 20 minutes ON SORTER documented in this encounter Plan of Treatment Not on filedocumented as of this encounter Visit Diagnoses Diagnosis Community acquired pneumonia of right mi ddle lobe of lung - Primary Moderate persistent asthma without compl ication Unspecified asthma ASD (atrial septal defect) Ostium secundum type atrial septal defec t documented in this encounter Additional Health Concerns Assessment Noted Time PHQ-9 Depression Total Score: 0 06/15/2019 7:09 PM CDT documented as of this encounter Care Teams Key Worker Relationship Specialty Start Date End Date Yung Madrigal MD PCP - Orthopaedics Orthopedics 08/26/12 RETIRED Winston Villatoro OD PCP - Ophthalmology Ophthalmology 02/11/13 [facility] [address] [facility] [address] [place] [address] Denise Woodson Ra, APRN WELL LOGGING MUD ANALYSIS CAPTAIN PCP - General Family Practice 09/21/20 [id number] [place] [address] [id number] Denise Woodson Ra, APRN WELL LOGGING MUD ANALYSIS CAPTAIN Assigned PCP 07/17/20 [id number] [place] [id number] documented as of this encounter
--- OUTSIDE RECORDS SUMMARY | 2022-08-29 12:09 | XMS_ITS | Encounter Summary ---
:1975 Author Organization [place] Address [address] [place] [address]. [place] [address] Care Team Providers Name Role Phone Yung Madrigal MD Unavailable Unavailable Winston Villatoro OD Unavailable Denise Woodson Ra POWER SAW OPERATOR UPSCALE SECURITY OFFICER Unavailable [phone] Denise Woodson Ra POWER SAW OPERATOR UPSCALE SECURITY OFFICER Primary Care Provider [phone] Reason for Visit Reason Comments Medication Refill Encounter Details Date Type Department Care Team Description 10/18/[address] [facility] Denise Woodson Ra, Medication Refill [place] POWER SAW OPERATOR UPSCALE SECURITY OFFICER [address] [place] [address] [place], [place] [id number] (Wo rk) Social History Tobacco Use Types Packs/Day Years Used Date Smoking Tobacco: Never Smokeless Tobacco: Never Alcohol Use Standard Drinks/Week Comments Yes 0 (1 standard drink = 0.6 oz pure alcoho l) minimal Sex Assigned at Date Recorded Not on file COVID-19 Exposure Response Date Recorded In the last month, have you been in contact with No / Unsure 09/21/2020 12:04 PM RELAY MAN someone who was confirmed or suspected to have Coronavirus / COVID-19? documented as of this encounter Miscellaneous Notes Telephone Encounter - Tran Castro RN - 11/02/2020 9:52 AM CST Per pt on 2/3 encounter she is no longer taking this medication. Tran Raines RN Y MAN Telephone Encounter - Tran Castro RN - 10/19/2020 11:38 AM RELAY MAN Sent [facility] w/ PHQ/MONAE Tran Raines RN Y MAN documented in this encounter Plan of Treatment Not on filedocumented as of this encounter Visit Diagnoses Diagnosis Generalized anxiety disorder Mild recurrent major depression (H) Major depressive disorder, recurrent epi sode, mild documented in this encounter Additional Health Concerns Assessment Noted Time PHQ-9 Depression Total Score: 0 06/15/2019 7:09 PM CDT documented as of this encounter Care Teams Canvas Baster Relationship Specialty Start Date End Date Yung Madrigal MD PCP - Orthopaedics Orthopedics 08/26/12 RETIRED Winston Villatoro OD PCP - Ophthalmology Ophthalmology 02/11/13 [facility] [place] [address] [place] [address] Denise Woodson Ra, APRN UPSCALE SECURITY OFFICER PCP - General Family Practice 09/21/20 [id number] [place] [address] [address] Denise Woodson Ra, APRN UPSCALE SECURITY OFFICER Assigned PCP 07/17/20 [address] [address], [place] [address] documented as of this encounter
--- OUTSIDE RECORDS SUMMARY | 2022-08-29 12:09 | XMS_ITS | Encounter Summary ---
:1975 Author Organization [place] Address [address] [place] [address]. [place] [address] Care Team Providers Name Role Phone Yung Madrigal MD Unavailable Unavailable Winston Villatoro OD Unavailable Serum, Clara Garland MD Primary Care Provider [phone] Serum, Clara Garland MD Unavailable [phone] Reason for Visit Reason Comments Recheck Medication Medication Refills Sinus Problem Encounter Details Date Type Department Care Team Description 07/13/2020 Virtual Visit [facility] Denise Woodson alized anxiety disorder (Primary Dx); Clinic Ginny Gonsales APRN CNP Moderate persistent asthma without compl ication; [address] Insomnia, unspecified type; [place], [place] Mild recurren t major depression (H); [id number] Upper respiratory tract infection, unspe cified type [phone] Social History Tobacco Use Types Packs/Day Years [...] documented as of this encounter Progress Notes Denise Woodson Ra, APRN CNP - 07/13/2020 3:40 PM CDT Alcon Zamora is a 44 year old female who is being evaluated via a billable telephone visit. The patient has been notified of following: This telephone visit will be conducted via a call between you and your physician/provider. We have found that certain health care needs can be provided without the need for a physical exam. This service lets us provide the care you need with a short phone conversation. If a prescription is necessary we can send it directly to your pharmacy. If lab work is needed we can place an order for that and you can then stop by our lab to have the test done at a later time. Telephone visits are billed at different rates depending on your insurance coverage. During this emergency period, for some insurers they may be billed the same as an in-person visit. Please reach out to your insurance provider with any questions. If during the course of the call the physician/provider feels a telephone visit is not appropriate, you will not be charged for this service. Patient has given verbal consent for Telephone visit? Yes What phone number would you like to be contacted at? [phone] How would you like to obtain your AVS? MyChart Subjective Alcon Zamora is a 44 year old female who presents via phone visit today for the following health issues: HPI Asthma Follow-Up Was ACT completed today? Yes No flowsheet data found. ?? How many days per week do you miss taking your asthma controller medication? Misses a dose once amonth ?? Please describe any recent triggers for your asthma: Remodeling Kitchen-Room was very marilu ?? Have you had any Emergency Room Visits, Urgent Care Visits, or Hospital Admissions since your last office visit? No Acute Illness Acute illness concerns: Sinus Problem Onset/Duration: Ongoing for Three Days Symptoms: Fever: no Chills/Sweats: [place] Warm the Afternoon Headache (location?): no Sinus Pressure: YES- PND Conjunctivitis: no Ear Pain: YES- Left Ear Feels Pain and Full Rhinorrhea: YES Congestion: YES- Nasal Congestion Sore Throat: YES Cough: YES - Slight Productive Wheeze: Occasional wheezing and SOB Decreased Appetite: no Nausea: no Vomiting: no Diarrhea: no Dysuria/Freq.: no Dysuria or Hematuria: no Fatigue/Achiness: no Sick/Strep Exposure: no Therapies tried and outcome: None-Tylenol on Saturday but nothing since Cough and sore throat and nasal congestion starting 2 days ago. Initially thought it was an asthma flare. This day she also received a call from her daughter stating she had tested + for covid. She had contact with her within the past 14 days. Pt did get tested 2 days ago. Received negative result yesterday. Sinus pressure has lessened. She is feeling more in her lungs. She feels tight. She is using her albuterol 1-2 times daily. This does help. She is staying hydrated. Typically does well with breo. Rare use of albuterol. Needs refilled. Triggers include mold, dust, temperature change. Taking trazodone. Uses with magnesium. No side effects. Effective. Previously took citalopram in the sharp. Recently tried to restart but had side effects. [place] flu like. In the past she had tried paxil as well. Had side effects. She then stayed on this regimen for the next 15 years. She believes she would benefit from restarting a medication to help with anxiety and low mood. Works from home for [employer]. Objective Vitals: No vitals were obtained today due to virtual visit. healthy, alert and no distress PSYCH: Alert and oriented times 3; coherent speech, normal rate and volume, able to articulate logical thoughts, able to abstract reason, no tangential thoughts, no hallucinations or delusions Her affect is normal RESP: No cough, no audible wheezing, able to talk in full sentences Remainder of exam unable to be completed due to telephone visits Assessment/Plan: Assessment & Plan Moderate persistent asthma without complication Typically well controlled. Refilled. - fluticasone-vilanterol (BREO ELLIPTA) 200-25 MCG/INH inhaler; Inhale 1 puff into the lungs daily - albuterol (PROAIR HFA/PROVENTIL HFA/VENTOLIN HFA) 108 (90 Base) MCG/ACT inhaler; Inhale 2 puffs into the lungs every 4 hours as needed for shortness of breath / dyspnea or wheezing Insomnia, unspecified type Works well, refilled. - traZODone (DESYREL) 50 MG tablet; Take 2 tablets (100 mg) by mouth At Bedtime Generalized anxiety disorder Discussed options. Daughter does well with lexapro. Trial now. Recheck in 1 month. - escitalopram (LEXAPRO) 10 MG tablet; Take 1 tablet (10 mg) by mouth daily Mild recurrent major depression (H) See above. - escitalopram (LEXAPRO) 10 MG tablet; Take 1 tablet (10 mg) by mouth daily Upper respiratory tract infection, unspecified type Monitor. Tolerating symptoms well. Will send message if symptoms worsening. No follow-ups on file. Denise Woodson APRN CNP [facility] [place] Phone call duration: 14 minutes documented in this encounter Plan of Treatment Not on filedocumented as of this encounter Visit Diagnoses Diagnosis Generalized anxiety disorder - Primary Moderate persistent asthma without compl ication Unspecified asthma Insomnia, unspecified type Mild recurrent major depression (H) Major depressive disorder, recurrent epi sode, mild Upper respiratory tract infection, unspe cified type documented in this encounter Additional Health Concerns Assessment Noted Time PHQ-9 Depression Total Score: 0 06/15/2019 7:09 PM CDT documented as of this encounter Care Teams Tire Groover Relationship Specialty Start Date End Date Yung Madrigal MD PCP - Orthopaedics Orthopedics 08/26/12 RETIRED Winston Villatoro, AMELIE PCP - Ophthalmology Ophthalmology 02/11/13 [facility] [address] [facility] [address] [place] [address] Clara Cornell MD PCP - General Internal Medicine 02/07/17 09/20/20 Clara Cornell MD Assigned PCP 01/17/17 07/16/[address] [address] documented as of this encounter
--- OUTSIDE RECORDS SUMMARY | 2022-08-29 12:09 | XMS_ITS | Encounter Summary ---
:1975 Author Organization [place] Address [address] [place] [address] Care Team Providers Name Role Phone Yung Madrigal MD Unavailable Unavailable Winston Villatoro OD Unavailable Clara Cornell MD Primary Care Provider [phone] Clara Cornell MD Unavailable [phone] Encounter Details Date Type Department Care Team Description 06/22/2019 Travel Social History Tobacco Use Types Packs/Day [...] documented as of this encounter Care Teams Target Aircraft Controller Relationship Specialty Start Date End Date Yung Madrigal MD PCP - Orthopaedics Orthopedics 08/26/12 RETIRED Winston Villatoro, OD PCP - Ophthalmology Ophthalmology 02/11/13 [facility] [address] [facility] [address] [place] [address] Clara Cornell MD PCP - General Internal Medicine 02/07/17 09/20/20 Clara Cornell, MD Assigned PCP 01/17/17 07/16/[address] [address] documented as of this encounter
--- OUTSIDE RECORDS SUMMARY | 2022-08-29 12:09 | XMS_ITS | Encounter Summary ---
:1975 Author Organization [place] Address [address] [place] [address] Care Team Providers Name Role Phone Yung Madrigal MD Unavailable Unavailable Winston Villatoro OD Unavailable Serum, Clara Garland MD Primary Care Provider [phone] Serum, Clara Garland MD Unavailable [phone] Encounter Details Date Type Department Care Team Description 06/17/2020 Orders Only [facility] Melvin Guzman MD Moderate persistent Clinic [place] [address] [facility] asthma without [address] [place] [address] [address] [place] [address] (Work) [phone] Social History Tobacco Use Types Packs/Day Years [...] documented as of this encounter Care Teams Warehouse Shipping Receiving Clerk Relationship Specialty Start Date End Date Yung Madrigal MD PCP - Orthopaedics Orthopedics 08/26/12 RETIRED Winston Villatoro OD PCP - Ophthalmology Ophthalmology 02/11/13 [facility] Kehinde Pascual [address] [facility] [address] [place] [address] Clara Cornell MD PCP - General Internal Medicine 02/07/17 09/20/20 Clara Cornell MD Assigned PCP 01/17/17 07/16/[address] [address] documented as of this encounter
--- OUTSIDE RECORDS SUMMARY | 2022-08-29 12:09 | XMS_ITS | Encounter Summary ---
:1975 Author Organization [place] Address [address] [place] [address] Care Team Providers Name Role Phone Yung Madrigal MD Unavailable Unavailable Winston Villatoro OD Unavailable SerumClara MD Primary Care Provider [phone] Clara Cornell MD Unavailable [phone] SerumClara MD Unavailable [phone] Encounter Details Date Type Department Care Team Description 2018 Travel Social History Tobacco Use Types Packs/Day [...] documented as of this encounter Care Teams Plastics Tooling Engineer Relationship Specialty Start Date End Date Yung Madrigal MD PCP - Orthopaedics Orthopedics 08/26/12 RETIRED Winston Villatoro, OD PCP - Ophthalmology Ophthalmology 02/11/13 [facility] [address] [place] [address] Clara Cornell MD PCP - General Internal Medicine 02/07/17 09/20/20 SerumClara MD PCP - Assigned PCP 01/17/17 11/18/[address] [id number] Clara Cornell MD Assigned PCP 01/17/17 07/16/[address] [id number] documented as of this encounter
--- OUTSIDE RECORDS SUMMARY | 2022-08-29 12:09 | XMS_ITS | Encounter Summary ---
:1975 Author Organization [place] Address [address] [place] [address] Care Team Providers Name Role Phone Yung Madrigal MD Unavailable Unavailable Winston Villatoro OD Unavailable Serum, Clara Garland MD Primary Care Provider [phone] Serum, Clara Garland MD Unavailable [phone] Encounter Details Date Type Department Care Team Description 06/22/2019 Orders Only [facility] Exc essive sweating; [facility] Anti-TPO antibodies present [address] [facility] [address] [place] [address] Social History Tobacco Use Types [...] Comments Diagnosis TSH WITH FREE T4 Routine 06/22/2019 3:36 PM Anti-TPO antibodie s Results for this REFLEX CDT present procedure are i n the results section. FOLLICLE STIMULATING Routine 06/22/2019 3:36 PM Excessive swea ting Results for this HORMONE CDT procedure are i n the results section. documented in this encounter Results TSH with free T4 reflex FUTURE anytime (06/22/2019 3:36 PM CDT) P athologist Signature TSH 3.30 0.40 - 4.00 06/23/2019 [facility]/L 3:12 PM CDT [facility] Specimen Anatomical Collection Method Collection Time Receive d Time (Source) Location / / Volume Laterality Blood specimen 06/22/2019 3:36 PM 019 3:37 (specimen) CDT PM CDT Clara Cornell MD LAB - BLOOD ORDERABLES Performing Organization Address City/[facility]/ZIP Code Phon e Number [facility] [address] [place] [address] Follicle stimulating hormone (06/22/2019 3:36 PM CDT) P athologist Signature FSH 9.5 IU/L 06/23/2019 [facility] 2:32 PM CDT [facility] Comment: FSH Reference Range Female: Follicular ?2.5-10.2 ?Mid-cycle ? 3.4-33.4 ?Luteal ?1.5-9.1 ?Postmenopausal ??23.0-116.3 Specimen Anatomical Collection Method Collection Time Receive d Time (Source) Location / / Volume Laterality Blood specimen 06/22/2019 3:36 PM 019 3:37 (specimen) CDT PM CDT Clara Cornell MD LAB - BLOOD ORDERABLES Performing Organization Address City/[facility] Code Phon e Number [facility] [address] [place] [address] [facility] documented in this encounter Visit Diagnoses Diagnosis Excessive sweating Generalized hyperhidrosis Anti-TPO antibodies present Other and unspecified nonspecific immuno logical findings documented in this encounter Additional Health Concerns Assessment Noted Time PHQ-9 Depression Total Score: 0 06/15/2019 7:09 PM CDT documented as of this encounter Care Teams Filtration Plant Operator Relationship Specialty Start Date End Date Yung Madrigal MD PCP - Orthopaedics Orthopedics 08/26/12 RETIRED Winston Villatoro, OD PCP - Ophthalmology Ophthalmology 02/11/13 [facility] [address] [facility] [address] [place] [address] Clara Cornell MD PCP - General Internal Medicine 02/07/17 09/20/20 Clara Cornell MD Assigned PCP 01/17/17 07/16/[address] [address] documented as of this encounter
--- OUTSIDE RECORDS SUMMARY | 2022-08-29 12:10 | XMS_ITS | Encounter Summary ---
:1975 Author Organization [place] Address [address] [place] [address] Care Team Providers Name Role Phone Timmy Perez MD Unavailable Yung Madrigal MD Unavailable Unavailable Winston Villatoro OD Unavailable Apple Sykes MD Primary Care Provider Westley Bates MD Unavailable Reason for Visit Reason Onset Date Comments Triage 10/07/2013 knee Encounter Details Date Type Department Care Team Description 10/07/2013 Telephone [facility] in [place] Thomas RN Triage (knee) [facility] caroline [address] [place] [phone] Social History Tobacco Use Types Packs/Day Years Used Date Smoking Tobacco: Never Smokeless Tobacco: Never Alcohol Use Standard Drinks/Week Comments Yes 0 (1 standard drink = 0.6 oz pure alcoho l) minimal Sex Assigned at Date Recorded Not on file documented as of this encounter Miscellaneous Notes Telephone Encounter - Salud Thomas RN - 10/07/2013 3:39 PM CST Situation/What is the patient???s concern/need: Knee incision Clinical Background/Recent Intervention: Pt called stating that she had knee surgery in July and sutures were used to close the incision.Pt states that there in an area over the incision that has now become red and raised and she thinks there is a black sarah in the center. Pt denies fever, pain and no red streaking. The incision is intact. No other problems noted. Pt does have an appt with Ortho on Saturday. Recommendation/Patient Request: Pt advised that it could be possible that a piece of stitch is still in the skin, not allowing it tofully heal. Pt will keep her appt on Saturday. If fever or red streaking develops in the meantime she will be seen sooner. Pt verbalizes understanding and agrees to plan. OS documented in this encounter Plan of Treatment Not on filedocumented as of this encounter Visit Diagnoses Not on filedocumented in this encounter Care Teams Lead Android Developer Relationship Specialty Start Date End Date Timmy Perez MD PCP - Obstetrics/Gynecology 03/02/0807/[address] [address] Yung Madrigal MD PCP - Orthopaedics Orthopedics 08/26/12 RETIRED Winston Villatoro, AMELIE PCP - Ophthalmology Ophthalmology 02/11/13 [facility] [place] [address] [facility] [address] [place] [address] Apple Sykes MD PCP - General Family Practice 05/04/13 10/25/[address] [place] [address] Westley Bates MD PCP - ENT Otolaryngology 05/14/13 07/28/18 XXX RETIRED XXX [address] [facility] [address] [place] [address] documented as of this encounter
--- OUTSIDE RECORDS SUMMARY | 2022-08-29 12:10 | XMS_ITS | Encounter Summary ---
:1975 Author Organization [facility] Address [address] [place] [address] Care Team Providers Name Role Phone Timmy Perez MD Unavailable Yung Madrigal MD Unavailable Unavailable Winston Villatoro OD Unavailable Apple Sykes MD Primary Care Provider Westley Bates MD Unavailable Reason for Visit Reason Comments Post-op Knees po ck left knee 08/04/13 Encounter Details Date Type Department Care Team Description 08/12/2013 Office Visit [facility] Leah Martini, Other orthopedic System in [place] aftercare (Primary Dx) Orthopedics [address] [id number] [id number] Social History Tobacco Use Types Packs/Day Years Used Date Smoking Tobacco: Never Smokeless Tobacco: Never Alcohol Use Standard Drinks/Week Comments Yes 0 (1 standard drink = 0.6 oz pure alcoho l) minimal Sex Assigned at Date Recorded Not on file documented as of this encounter Progress Notes Leah Martini MD - 08/18/2013 9:14 AM CST CLINIC ENCOUNTER DATE OF SURGERY: August 04, 2013 PROCEDURE PERFORMED: Left knee arthroscopic lateral meniscal saucerization, left knee arthroscopic partial lateral meniscectomy anterior horn. INTERVAL HISTORY: Miss Ekalaka returns today for her first postoperative visit. She is approximately eight days out from time of surgery. The patient had a little bit of a mariella course postoperatively, as she had some issues with headaches and nausea and vomiting that persisted through the evening of postoperative day zero. This required a trip to the emergency department at [place] near her home. She reportedly was given IV Zofran and had significant improvement. She was feeling better after this was taken care of; however, this past August 10, she began having problems with back pain. She did have a spinal placed by the anesthesia team at the time of surgery. She has not noticed any numbness, tingling or weakness. She has not had any fever or chills. With regard to the left knee, it is sore and is swollen at the end of the day. She reports that in the morning she feels really pretty good but by the end of the day, she does have a fair amount of pain. She states that she has not been using crutches at all since surgery and has been walking on it ever since. She has not noticed any drainage from the wounds. She was back to work about two days after surgery. 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 PHYSICAL EXAMINATION: On examination, she is well appearing and in no acute distress. She does have some tenderness in her low back and I am able to see the areas where they had done the spinal. There are no signs of infection. She is able to ambulate without assistance but she does have an antalgic gait. The arthroscopic portal sites about the left knee are clean, dry and intact. Sutures were removed prior to my arrival. Steri-Strips are in place. Range of motion is actually pretty good. She is able to get full extension, is able to flex it back to about 100 degrees. She has a 1 to 2+ effusion. There are no signs of infection. ASSESSMENT: Eight days status post left knee arthroscopic lateral meniscal saucerization and arthroscopic partial lateral meniscectomy anterior horn. PLAN: I discussed with Miss Zamora that the reason why the knee is sore and swollen at the end of the day is likely because she has been up on it a little longer than would be ideal. I do understand that she has to do her day-to-day activities at home and caring for her family, but I suggested that she try to off load the left lower extremity and rest for the next week or so. She is to request help from her family members in doing the day-to-day activities at home so that she can off load the leg and allow it to calm down. The reason why she is feeling pretty good in the morning is that she has actually been resting it all night while she is sleeping, but by the end of the day, things tend to flare up. I recommend she try antiinflammatory medications to knock down her symptoms and help with pain control and swelling. She is also to apply ice as needed. Going forward, I would like to see her back in four weeks. At that point, we will do her final recheck. I did offer her the option of physical therapy to work on motion and strengthening and gait training, but at this point she would like to decline physical therapy, as she is not interested in that at this time. Leah Martini M.D. 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 Pt states that knee is still somewhat sore. She did have some adverse reactions to the pain meds given in post op and also got a spinal headache with some residual soreness inher lower back. Sutures removed steri strips applied. No signs of infection present. documented in this encounter Plan of Treatment Not on filedocumented as of this encounter Visit Diagnoses Diagnosis Other orthopedic aftercare(V54.89) - Erica noble Other orthopedic aftercare documented in this encounter Care Teams Bow Maker Machine Tender Relationship Specialty Start Date End Date Timmy Perez MD PCP - Obstetrics/Gynecology 03/02/0807/[address] [address] Yung Madrigal MD PCP - Orthopaedics Orthopedics 08/26/12 RETIRED Winston Villatoro, AMELIE PCP - Ophthalmology Ophthalmology 02/11/13 [facility] [address] [facility] [address] [place] [address] Apple Sykes MD PCP - General Family Practice 05/04/13 10/25/[address] [place] [address] Westley Bates MD PCP - ENT Otolaryngology 05/14/13 07/28/18 XXX RETIRED XXX [address] [facility] [address] [place] [address] documented as of this encounter
--- OUTSIDE RECORDS SUMMARY | 2022-08-29 12:10 | XMS_ITS | Encounter Summary ---
:1975 Author Organization [place] Address [address] [place] [address] Care Team Providers Name Role Phone Timmy Perez MD Unavailable Yung Madrigal MD Unavailable Unavailable Winston Villatoro OD Unavailable Apple Sykes MD Primary Care Provider Westley Bates MD Unavailable Reason for Visit Reason Comments Surgical Followup Left knee arthroscopic later al meniscal saucerization DOS 08/04/13 Encounter Details Date Type Department Care Team Description 11/02/2013 Office Visit [facility] [place] Dahlia Morley After care following System in [facility]MAIRANI Dewitt surgery of the Orthopedics [facility] musculoskeletal system, [address] [facility] (Primary Dx) [place], [place] [address] [facility] [address] [place], [place] [phone] Social History Tobacco Use Types Packs/Day Years Used Date Smoking Tobacco: Never Smokeless Tobacco: Never Alcohol Use Standard Drinks/Week Comments Yes 0 (1 standard drink = 0.6 oz pure alcoho l) minimal Sex Assigned at Date Recorded Not on file documented as of this encounter Progress Notes Dahlia Morley PA - 11/04/2013 12:34 PM CST CLINIC ENCOUNTER CHIEF COMPLAINT Postop visit #3 for a left knee arthroscopic lateral meniscal saucerization, left knee arthroscopic partial lateral meniscectomy anterior horn. INTERVAL HISTORY Ms. Zamora is here for her third followup appointment for the above mentioned procedure performed by Dr. Martini on August 04, 2013. Today she is approximate 13 weeks out from date of surgery. Overall she is continuing to do well. She has improved significantly since her last visit per her report. She did go to one physical therapy visit to work on quadriceps strengthening and does report she has been working on those exercises. All-in-all she states she does not have very much pain. Occasionally she will report anterolateral pain at the lateral of the lateral joint line. However, this has been significantly decreased from the last visit, and all-in-all the patient states she is doing well. Since the last visit the patient states she did pull a small piece of suture out of her most distal medial incision. She states that her and she did notice that something did not look right so he did pull a piece out. Since then she has noticed that the area is slightly raised and tender again, and is concerned that there is another piece of suture in that incision. She denies any fevers or chills, or any surrounding erythema or discharge out of that incision. The patient states all-in-all she is doing well, and is here today to ask about the incision as well as to present for her final followup appointment. The patient is currently not taking any medication for pain. PHYSICAL EXAMINATION Today on physical exam it is noted that the most distal medial incision, is slightly raised, and has a darker color than the other incisions. There does appear to be a small scab in the middle of the incision. There is no surrounding erythema, there is no drainage. At this stage there is no sign of infection. I did closely examine the incision, and I do not see any nylon suture at this time. The patient is mildly tender to palpation over that incision. She is also mildly tender to palpation along the lateral joint line. The patient has excellent range of motion from approximately 0 to 130 degrees. She is able to fully bear weight and ambulate without any antalgia in her gait at this time. The patient is neurovascularly intact in the left lower extremity. She has palpable pedal pulse. Capillary refill is less than 3 seconds. In addition, sensation is also intact at the areas of superficial and deep peroneal nerves as well as the tibial nerve. ASSESSMENT Thirteen weeks status post left knee arthroscopic lateral meniscal saucerization, left knee arthroscopic lateral partial meniscectomy anterior horn. PLAN At this date I did discuss with Ms. Zamora that I did not feel that it would be beneficial for me to dig into the incision, to look for any remaining suture. I did explain to her that sometimes the nurses do cut the knot and some suture does remain and I believe that is what happened to her when she did find that extra piece. I did advise her that if there is suture left in there, it will work its way up to the surface, and we will be able to see it. I instructed her that if she does see suture to return to clinic and I would be happy to take it out for her. In addition I also discussed the signs of infection, such as increased pain, erythema or drainage, or any signs of fevers or chills. I instructed her that if she does notice any of these or notices any signs at all that the wound may become infected she is to return to clinic or the emergency room immediately. The patient understands this and does plan to return if she notices any difference in the incision, or if she does actually see a piece of suture remaining. I also instructed the patient that at this stage she no longer needs to followup, as she is approximately 13 weeks out from the date of surgery. I did instruct her that if she has any questions or concerns we are here for her, and would be more than willing to see her again, but if not we can plan to see her at this point going forward on an as needed basis. I answered all the patient's questions at this time and she was encouraged to call or followup if any new ones arise. If not, we do plan to see her on an as needed basis barring any further complications with her incisions. I did review this case with Dr. Martini. AMAIRANI Curtis-C AMS/ph cc: ET SPECULATOR documented in this encounter Nursing Notes 11/02/2013 1:30 PM CST >> GALILEO MICHELLE Mon Nov 02, 2013 1:55 PM Pt here for 3rd po Left knee arthroscopic lateral meniscal saucerization, left knee arthroscopic partial lateral meniscectomy anterior horn. DOS 08/04/13 Pain 10/26 documented in this encounter Plan of Treatment Not on filedocumented as of this encounter Visit Diagnoses Diagnosis [place] [facility] [place] - Primary documented in this encounter Care Teams Agricultural Economics Professor Relationship Specialty Start Date End Date Timmy Perez MD PCP - Obstetrics/Gynecology 03/02/0807/[address] [address] Yung Madrigal MD PCP - Orthopaedics Orthopedics 08/26/12 RETIRED Winston Villatoro OD PCP - Ophthalmology Ophthalmology 02/11/13 [facility] [address] [facility] [address] [place] [address] Apple Sykes MD PCP - General Family Practice 05/04/13 10/25/[address] [place] [address] Westley Bates MD PCP - ENT Otolaryngology 05/14/13 07/28/18 XXX RETIRED XXX [address] [facility] [address] [place] [address] documented as of this encounter
--- OUTSIDE RECORDS SUMMARY | 2022-08-29 12:10 | XMS_ITS | Encounter Summary ---
:1975 Author Organization [place] Address [address] [place] [address] Care Team Providers Name Role Phone Yung Madrigal MD Unavailable Unavailable Winston Villatoro OD Unavailable Westley Bates MD Unavailable Serum, Clara Garland MD Primary Care Provider Serum, Clara Garland MD Unavailable [phone] Serum, Clara Garland MD Unavailable [phone] Reason for Visit Reason Comments Musculoskeletal Problem Encounter Details Date Type Department Care Team Description 05/31/2017 Office Visit [facility] Laly Mancini [facility] [place] Cooney PA-C ENCOUNTER--DISREGARD [address] [facility] (Prim daniel Dx) [facility] [address] [place] [address] [place] [address] Social History Tobacco Use Types Packs/Day Years Used Date Smoking Tobacco: Never Smokeless Tobacco: Never Alcohol Use Standard Drinks/Week Comments Yes 0 (1 standard drink = 0.6 oz pure alcoho l) minimal Sex Assigned at Date Recorded Not on file documented as of this encounter Progress Notes Laly Mancini PA-C - 05/31/2017 1:10 PM CDT error documented in this encounter Plan of Treatment Not on filedocumented as of this encounter Visit Diagnoses Diagnosis ERRONEOUS ENCOUNTER--DISREGARD - Primary documented in this encounter Additional Health Concerns Assessment Noted Time PHQ-9 Depression Total Score: 0 02/08/2017 7:29 AM CDT documented as of this encounter Care Teams Surgery Aid Relationship Specialty Start Date End Date Yung Madrigal MD PCP - Orthopaedics Orthopedics 08/26/12 RETIRED Winston Villatoro, AMELIE PCP - Ophthalmology Ophthalmology 02/11/13 [facility] [place] [address] [place] [address] Westley Bates MD PCP - ENT Otolaryngology 05/14/13 07/28/18 XXX RETIRED XXX [address] [place] [address] Clara Cornell MD PCP - General Internal Medicine 02/07/17 09/20/20 Clara Cornell MD PCP - Assigned PCP 01/17/17 11/18/[address] [address] Clara Cornell MD Assigned PCP 01/17/17 07/16/[address] [address] documented as of this encounter
--- OUTSIDE RECORDS SUMMARY | 2022-08-29 12:10 | XMS_ITS | Encounter Summary ---
:1975 Author Organization [place] Address [address] [place] [address] Care Team Providers Name Role Phone Yung Madrigal MD Unavailable Unavailable Winston Villatoro OD Unavailable Westley Bates MD Unavailable Serum, Clara Garland MD Primary Care Provider [phone] Serum, Clara Garland MD Unavailable [phone] Serum, Clara Garland MD Unavailable [phone] Reason for Referral [facility] - Closed Specialty Diagnoses / Procedures Referred By Contact Refer red To Contact Diagnoses Lizy-Danlos syndrome DDD (degenerative disc disease), cervical Herniated cervical disc Clara [facility] [address] [place] [address] [place] [address] [place] [address] Phone: [phone] Referral ID Status Reason Start Date Expiration Date Visits Requ ested Visits Authorized [id number] Closed 02/07/2017 02/07/2018 1 1 AM Physical Therapy - Closed Specialty Diagnoses / Procedures Referred By Contact Refer red To Contact Diagnoses Lizy-Danlos syndrome DDD (degenerative disc disease), cervical Herniated cervical disc [facility] [address] [place] [address] [place] [address] Phone: [phone] Referral ID Status Reason Start Date Expiration Date Visits Requ ested Visits Authorized [id number] Closed 02/07/2017 02/07/2018 1 1 Reason for Visit Reason Comments Pain neck Establish Care Encounter Details Date Type Department Care Team Description 02/07/2017 Office Visit [facility] Clara Cornell Lizy-D anlos syndrome (Primary Dx); Clinic Kavon Garland MD DDD (degenerative disc disease), cervica l; [address] Herniated cervical disc; [facility] Severe episode of recurrent major depres sive disorder, without psychotic features (H); [address] [place] [address] Generalized anxiety disorder ; [place] [address] [address] Attention deficit hyperactivity disorder (ADHD), predominantly inattentive type; [phone] [place] BPD (bronchopul monary dysplasia); [id number] ASD (atrial septal defect) Social History Tobacco Use Types Packs/Day Years Used Date Smoking Tobacco: Never Smokeless Tobacco: Never Alcohol Use Standard Drinks/Week Comments Yes 0 (1 standard drink = 0.6 oz pure alcoho l) minimal Sex Assigned at Date Recorded Not on file documented as of this encounter Last Filed Vital Signs Vital Sign Reading Time Taken Comments Blood Pressure 118/76 02/07/2017 8:58 AM CDT Pulse 67 02/07/2017 8:58 AM CDT Temperature 37.3 ??C (99.2 ??F) 02/07/2017 8:58 AM CDT Respiratory Rate - - Oxygen Saturation 99% 02/07/2017 8:58 AM CDT Inhaled Oxygen Concentration - - Weight 94.1 kg (207 lb 8 oz) 02/07/2017 8:58 AM CDT Height 174 cm (5' 8.5) 02/07/2017 8:58 AM CDT Body Mass Index 31.09 02/07/2017 8:58 AM CDT documented in this encounter Patient Instructions Patient InstructionsSerum, Clara Garland MD - 02/07/2017 9:00 AM CDT 1. You will be contacted to set up an appointment for physical therapy and acupuncture 2. Let me know when need med refills 3. Try light box next fall/winter - verilux is most common brand. Start 15 minutes a day and can gradually increase - best to do earlier in the morning. 4. Let me know when you would like the referral for Cardiology documented in this encounter Progress Notes Clara Cornell MD - 02/07/2017 9:00 AM CDT SUBJECTIVE: Alcon Zamora is a 41 year old female who presents to clinic today for the following health issues: Establish care - previous care at [facility] and [facility] before that. Insurance has changed. Had physical in September at [facility]. Neck Pain ?? Duration: chronic for 20 years ?? Description: Location: left side Radiation: into the right neck and into the right shoulder ?? Intensity: moderate ?? Accompanying signs and symptoms: tingling in fingers ?? History (similar episodes/previous evaluation): many evals per [facility] ?? Precipitating or alleviating factors: Lizy Danlos ?? 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 Has had neck pain for 20+ years. Has history Lizy Danlos and has some pain all of the time, but has flares off and on. Typically has more severe pain that flares every couple of years. Was doing massage every week for awhile. Last about 2 months ago. Does stretching on regular basis. Uses flexeril oc casionally. Pain worse in neck and left hip sometimes goes out. Last MRI of neck in 2012 - done at [facility] - showed DDD and some disc herniations. Prefers to manage with alternative approaches. Wonders if other options available. ADHD: has been on Adderall for 5-6 years. Doesn't take every day. Takes only when has to go to meetings or has more distractions. No side effects. Does not need filled right now. BPD: born prematurely. Take Breo - switched from Advair last summer. Has been much more effective Anxiety/depression: has been on citalopram for years. Typically worse in fall and better in spring. Decreased to 10 mg a couple of weeks ago. Has not tried light box therapy. ASD: found with testing done due to SOB. BPD also diagnosed at that time. Was closed in 2005. Last saw Cardiology with [facility] in 2013. Recommend every 2 year follow-up. Insomnia: uses trazodone and is helpful. Reviewed and updated as needed this visit by clinical staff Tobacco Allergies Meds Problems Med Hx Surg Hx Fam Hx Soc Hx Reviewed and updated as needed this visit by Provider Allergies Meds Problems Problem list and histories reviewed & adjusted, as indicated. Additional history: as documented ROS: Constitutional, HEENT, cardiovascular, pulmonary, GI, , musculoskeletal, neuro, skin, endocrine and psych systems are negative, except as otherwise noted. Problem list, Medication list, Allergies, and Medical/Social/Surgical histories reviewed in [facility] andupdated as appropriate. OBJECTIVE: BP 118/76 (BP Location: Right arm, Patient Position: Chair, Cuff Size: Adult Large) Pulse 67 Temp 99.2 ??F (37.3 ??C) (Tympanic) Ht 5' 8.5 (1.74 m) Wt 207 lb 8 oz (94.1 kg) LMP 01/07/2006 SpO2 99% BMI 31.09 kg/m2 Body mass index is 31.09 kg/(m^2). General Appearance: healthy, alert and no distress Eyes: no discharge, erythema. Normal pupils. Neck: no lymphadenopathy Respiratory: lungs clear to auscultation - no rales, rhonchi or wheezes. Cardiovascular: regular rate and rhythm, normal S1 S2, no S3 or S4 and no murmur, click or rub. No peripheral edema. Skin: no rashes or lesions. Well perfused and normal turgor. Psychiatric: mentation appears normal and affect normal/bright. 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 Has seasonal symptoms Plan: - continue citalopram - discussed trial of 10,000 lux light next winter (F90.0) Attention deficit hyperactivity disorder (ADHD), predominantly inattentive type Comment: controlled Plan: continue Adderall XR 10 mg as needed - will let me know when needs a refill (P27.1) BPD (bronchopulmonary dysplasia) Comment: born prematurely Plan: - continue Breo once a day - albuterol as needed (Q21.1) ASD (atrial septal defect) Comment: s/p repair Plan: - will need to establish with Cardiology. Not ready to do this quite yet - will let me know when would like referral. Follow up with Provider - 1 year Clara Cornell [facility] documented in this encounter Nursing Notes Brenda Matos LPN - 02/07/2017 9:00 AM CDT Chief Complaint Patient presents with ??? Pain neck Initial BP 118/76 (BP Location: Right arm, Patient Position: Chair, Cuff Size: Adult Large) Pulse 67 Temp 99.2 ??F (37.3 ??C) (Tympanic) Ht 5' 8.5 (1.74 m) Wt 207 lb 8 oz (94.1 kg) LMP 01/07/2006 SpO2 99% BMI 31.09 kg/m2 Estimated body mass index is 31.09 kg/(m^2) as calculated from thefollowing: Height as of this encounter: 5' 8.5 (1.74 m). Weight as of this encounter: 207 lb 8 oz (94.1 kg). Medication Reconciliation: rosalinda Matos LPN documented in this encounter Plan of Treatment Scheduled Referrals Name Type Priority Associated Diagnoses Order S chedule [facility] PT, HAND, AND Referral Routine Lizy-Danlos syndrome Ordered: 02/07/2017 CHIROPRACTIC REFERRAL DDD (degenerative d isc disease), cervic al Herniated cervical disc [facility] PT, HAND, AND Referral Routine Lizy-Danlos syndrome Ordered: 02/07/2017 CHIROPRACTIC REFERRAL DDD (degenerative d isc disease), cervic al Herniated cervical disc documented as of this encounter Visit Diagnoses Diagnosis Lizy-Danlos syndrome - Primary DDD (degenerative disc disease), cervica l Degeneration of cervical intervertebral disc Herniated cervical disc Displacement of cervical intervertebral disc without myelopathy Severe episode of recurrent major depres sive disorder, without psychotic features (H) Generalized anxiety disorder Attention deficit hyperactivity disorder (ADHD), predominantly inattentive type BPD (bronchopulmonary dysplasia) Chronic respiratory disease arising in t he period ASD (atrial septal defect) Ostium secundum type atrial septal defec t documented in this encounter Additional Health Concerns Assessment Noted Time PHQ-9 Depression Total Score: 0 02/08/2017 7:29 AM CDT documented as of this encounter Care Teams Wholesaler Relationship Specialty Start Date End Date Yung Madrigal MD PCP - Orthopaedics Orthopedics 08/26/12 RETIRED Winston Villatoro, AMELIE PCP - Ophthalmology Ophthalmology 02/11/13 [facility] [address] [place] [address] Westley Bates MD PCP - ENT Otolaryngology 05/14/13 07/28/18 XXX RETIRED XXX [address] [place] [address] Clara Cornell MD PCP - General Internal Medicine 02/07/17 09/20/20 Clara Cornell MD PCP - Assigned PCP 01/17/17 11/18/18 [facility] [address] [place] [id number] Aneta, Clara Garland MD Assigned PCP 01/17/17 07/16/[address] [address] documented as of this encounter
--- OUTSIDE RECORDS SUMMARY | 2022-08-29 12:10 | XMS_ITS | Encounter Summary ---
:1975 Author Organization [place] Address [address] [place] [address] Care Team Providers Name Role Phone Timmy Perez MD Unavailable Yung Madrigal MD Unavailable Unavailable Winston Villatoro OD Unavailable Apple Sykes MD Primary Care Provider Westley Bates MD Unavailable Reason for Visit Reason Comments Pre-Op Exam left knee arthroscopy,partia l menisectomy on 08/04,dr. garvin Encounter Details Date Type Department Care Team Description 07/28/2013 Office Visit [facility] Rubi Demarco MD Pre-operative respiratory examination (P rimary Dx); System in [facility] Pre-operative cardiovascular examination ; Family Practice [address] RECURR DEPR PSYCH-[facility] [address] [place] [address] [phone] Social History Tobacco Use Types Packs/Day Years Used Date Smoking Tobacco: Never Smokeless Tobacco: Never Alcohol Use Standard Drinks/Week Comments Yes 0 (1 standard drink = 0.6 oz pure alcoho l) minimal Sex Assigned at Date Recorded Not on file documented as of this encounter Last Filed Vital Signs Vital Sign Reading Time Taken Comments Blood Pressure 114/72 07/28/2013 4:04 PM RUBBER COVERING MACHINE OPERATOR Pulse 68 07/28/2013 4:04 PM RUBBER COVERING MACHINE OPERATOR Temperature 36.1 ??C (97 ??F) 07/28/2013 4:04 PM RUBBER COVERING MACHINE OPERATOR Respiratory Rate - - Oxygen Saturation - - Inhaled Oxygen Concentration - - Weight 89.9 kg (198 lb 3.1 oz) 07/28/2013 4:04 PM RUBBER COVERING MACHINE OPERATOR Height 174 cm (5' 8.5) 07/28/2013 4:04 PM RUBBER COVERING MACHINE OPERATOR Body Mass Index 29.69 07/28/2013 4:04 PM RUBBER COVERING MACHINE OPERATOR documented in this encounter Progress Notes Rubi Demarco MD - 07/28/2013 4:10 PM CST HISTORY & PHYSICAL Alcon Zamora : 1975 Date of preoperative exam: 07/28/2013 Date of Surgery: 08/04/13 Type of Anticipated Surgery: left knee arthroscopy with partial meniscectomy Reason for Surgery: left knee pain Consulting Surgeon: Dr. Garvin Type of Anesthesia Anticipated: Choice HPI: Alcon is a 37 year old female who will be undergoing the above surgery. The consulting surgeon requests pre-anesthesia evaluation because of the following complicating medical problem(s): DEPRESSION - Patient has a long history of Depression of moderate severity requiring medication for control with recent symptoms being stable..Current symptoms of depression include none. . ASTHMA - Patient has a longstanding history of moderate-severe Asthma that is EXERCISE INDUCED. Pt states she no longer uses the Advair and has had no problems. Lizy Danlos Syndrome: Pt had eval for this and Marfan's at [place]. Has had cardiac surgery and ECHO's/CXR's; none of which showed any abnormal aortic arch. She is without any systemic symptoms. . She denies a personal or family history of anesthesia complications or bleeding disorders. Patient Active Problem List Diagnosis Date Noted ??? Chronic respiratory disease arising in the period 04/21/2013 Priority: Medium ??? Rosacea 05/05/2012 Priority: Medium ??? RECURR DEPR PSYCH-SEVERE 10/22/2007 Priority: Medium ??? GENERALIZED ANXIETY DIS 10/08/2007 Priority: Medium Past Medical History Diagnosis Date ??? Excessive or frequent menstruation 01/31/06 Hospitalized ??? Hemorrhage complicating a procedure ??? Acute posthemorrhagic anemia ??? Cervicalgia ??? Pain in joint, pelvic region and thigh ??? Broncho-pulmonary dysplasia ??? 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 C controller repairer and tester procedure date: [id number] vag del. ??? Rw controller repairer and tester (abstracted) pneumonia several times ??? C controller repairer and tester procedure date: 2000 tubal ligation ??? C controller repairer and tester procedure date: 1994 D&C ??? C vaginal hysterectomy 01/30/06 ??? Surgical pathology exam 02/2012 excision of lipoma on chest wall ??? Heart cath, closure atrial septal defect 06/20/06 amplatzer septal occluder- serial #[id number] Current Outpatient Prescriptions Medication Status Sig ??? traMADol (ULTRAM) 50 MG tablet Active Take 1 tablet (50 mg) by mouth every 6 hours as needed forpain ??? citalopram (CELEXA) 20 MG tablet Active Take 20 mg by mouth daily ??? fluticasone (FLONASE) 50 MCG/ACT nasal spray Active [place] 2 sprays into both nostrils daily ??? fluticasone-salmeterol (ADVAIR) 250-50 MCG/DOSE diskus inhaler Active Inhale 1 puff into the lungs 2 times daily ??? traZODone (DESYREL) 50 MG tablet Active Take 2 tablets (100 mg) by mouth At Bedtime Take 2 to 2 1/ tablets at bedtime ??? metroNIDAZOLE (METROGEL) 0.75 % gel Active Metrogel 1% not available ??? moxifloxacin (VIGAMOX) 0.5 % ophthalmic solution Place 1 drop Into the left eye every 4 hours (while awake) for 7 days. Allergies Allergen Reactions ??? Erythromycin GI Disturbance Latex Allergy: NO History Substance Use Topics ??? Smoking status: Never Smoker ??? Smokeless tobacco: Never Used ??? Alcohol Use: Yes Comment: minimal History Drug Use No Family History Problem Relation Age of Onset ??? Diabetes No family hx of ??? Hypertension No family hx of ??? Breast CA No family hx of ??? Colon CA No family hx of ??? Alzheimers No family hx of ??? Cancer No family hx of ??? Heart No family hx of ??? Thyroid No family hx of reviewed 06/05/2006 ??? Anesthesia No family hx of ??? Blood Disease No family hx of ??? Stroke Maternal Grandmother and great maternal grandmother REVIEW OF SYSTEMS: CONSTITUTIONAL: NEGATIVE for fever, chills, change in weight INTEGUMENTARY/SKIN: NEGATIVE for worrisome rashes, moles or lesions EYES: NEGATIVE for vision changes or irritation ENT/MOUTH: NEGATIVE for ear, mouth and throat problems RESP: NEGATIVE for significant cough or SOB BREAST: NEGATIVE for masses, tenderness or discharge CARDIOVASCULAR: NEGATIVE for chest pain, palpitations or peripheral edema GI: NEGATIVE for nausea, heartburn, or change in bowel habits. Describes chronic lower abd pain but no changes in this symptom. : NEGATIVE for frequency, dysuria, or hematuria MUSCULOSKELETAL: knee pain and no other specific symptoms. NEURO: NEGATIVE for weakness, dizziness or paresthesias ENDOCRINE: NEGATIVE for temperature intolerance, skin/hair changes HEME/ALLERGY/IMMUNE: NEGATIVE for bleeding problems PSYCHIATRIC: NEGATIVE for changes in mood or affect Is there a possibility of ? No, s/p BTL or vasectomy PHYSICAL EXAM: BP 114/72 Pulse 68 Temp 97 ??F (36.1 ??C) (Temporal) Ht 1.74 m (5' 8.5) Wt 89.9 kg (198 lb 3.1 oz) BMI 29.69 kg/m2 LMP 01/07/2006 ? No Estimated Body mass index is 29.69 kg/(m^2) as calculated from the following: Height as of this encounter: 5' 8.504(1.74 m). Weight as of this encounter: 198 lb 3.1 oz(89.9 kg). GENERAL APPEARANCE: healthy, alert and no distress EYES: Eyes grossly normal to inspection HENT: head appears grossly normal, ear canals and TM's normal and nose and mouth without ulcers or lesions NECK: no adenopathy, no asymmetry, masses, or scars and thyroid normal to palpation RESP: lungs clear to auscultation - no rales, rhonchi or wheezes CARDIOVASCULAR: regular rates and rhythm, normal S1 S2, no S3 or S4 and no murmur, click or rub - ABDOMEN: soft, nontender, no HSM or masses and bowel sounds normal MUSCULOSKELETAL: extremities normal- no gross deformities noted, no evidence of inflammation in joints, FROM in all extremities. SKIN: no suspicious lesions or rashes NEURO: Normal strength and tone, sensory exam grossly normal, mentation intact and speech normal PSYCH: mentation appears normal. and affect normal/bright LYMPHATICS: No axillary, cervical, inguinal, or supraclavicular nodes DIAGNOSTICS: Not indicated ASSESSMENT: Knee pain Pre-operative respiratory examination Pre-operative cardiovascular examination Major depressive disorder, recurrent episode, severe, without mention of psychotic behavior: Stable on meds. Refilled. PLAN: 1. ASA class 2 - Mild systemic disease 2. No evidence of functionally compromising cardiac or pulmonary status. Low risk pt planning low risk procedure. 3. The patient is recommended to hold aspirin or NSAIDS for 10 days prior to surgery. 4. The patient is instructed as to which medications to take with sips of water the morning of surgery The above has been forwarded to the consulting provider. Signed Electronically by: Rubi Christopher MD July 28, 2013 ER COVERING MACHINE OPERATOR documented in this encounter Plan of Treatment Not on filedocumented as of this encounter Visit Diagnoses Diagnosis Pre-operative respiratory examination - Primary Pre-operative cardiovascular examination RECURR DEPR PSYCH-SEVERE Major depressive disorder, recurrent epi sode, severe, without mention of psychotic behavior documented in this encounter Care Teams Relocation Counselor Relationship Specialty Start Date End Date Timmy Perez MD PCP - Obstetrics/Gynecology 03/02/0807/[address] [address] Yung Madrigal MD PCP - Orthopaedics Orthopedics 08/26/12 RETIRED Winston Villatoro, AMELIE PCP - Ophthalmology Ophthalmology 02/11/13 [facility] [address] [place] [address] [place] [address] Apple Sykes MD PCP - General Family Practice 05/04/13 10/25/[address] [place] [id number] Westley Bates MD PCP - ENT Otolaryngology 05/14/13 07/28/18 XXX RETIRED XXX [address] [facility] [address] [place] [address] documented as of this encounter
--- OUTSIDE RECORDS SUMMARY | 2022-08-29 12:10 | XMS_ITS | Encounter Summary ---
:1975 Author Organization [place] Address [address] [place] [address] Care Team Providers Name Role Phone Timmy Perez MD Unavailable Yung Madrigal MD Unavailable Unavailable Winston Villatoro OD Unavailable Apple Sykes MD Primary Care Provider Westley Bates MD Unavailable Encounter Details Date Type Department Care Team Description 07/29/2013 Allied Health/Nurse [facility] in Visit [facility] [address] [place] [address] Social History Tobacco Use Types Packs/Day [...] on filedocumented in this encounter Care Teams Post Exchange Manager Relationship Specialty Start Date End Date Timmy Perez MD PCP - Obstetrics/Gynecology 03/02/0807/[address] [address] Yung Madrigal MD PCP - Orthopaedics Orthopedics 08/26/12 RETIRED Winston Villatoro OD PCP - Ophthalmology Ophthalmology 02/11/13 [facility] [address] [facility] [address] [place] [address] Apple Sykes MD PCP - General Family Practice 05/04/13 10/25/[address] [place] [address] Westley Bates MD PCP - ENT Otolaryngology 05/14/13 07/28/18 XXX RETIRED XXX [address] [facility] [address] [place] [address] documented as of this encounter
--- OUTSIDE RECORDS SUMMARY | 2022-08-29 12:10 | XMS_ITS | Encounter Summary ---
:1975 Author Organization [facility] Address [address] [place] [address] Care Team Providers Name Role Phone Timmy Perez MD Unavailable Yung Madrigal MD Unavailable Unavailable Winston Villatoro OD Unavailable Apple Sykes MD Primary Care Provider Westley Bates MD Unavailable Reason for Visit Reason Comments PT Initial Visit knee Encounter Details Date Type Department Care Team Description 09/15/2013 [facility] GALINA Rai Initia l Visit Health/Nurse System in [place] GALINA Garcia (knee) Visit Physical Therapy [address] in [facility] [phone] [place] [address] [place] [id number] Social History Tobacco Use Types Packs/Day Years Used Date Smoking Tobacco: Never Smokeless Tobacco: Never Alcohol Use Standard Drinks/Week Comments Yes 0 (1 standard drink = 0.6 oz pure alcoho l) minimal Sex Assigned at Date Recorded Not on file documented as of this encounter Progress Notes Radha Rai, PT - 09/15/2013 1:42 PM CST REHAB SNAPSHOT Referring Provider: Leah Martini M.D. MD Visit Date: 09/14/13 Recheck: 6 weeks Orders: Evaluate and treat for S/P Left knee arthroscopic lateral meniscal saucerization, left knee arthroscopic partial lateral meniscectomy anterior horn. Contraindications or Special Instructions: ONE TIME VISIT, quad and hamstring strengthening Onset / Date of Surgery: 08/04/13 Rehab Clinical Impression: right anterior knee pain with decreased quad control PHYSICAL THERAPY - INITIAL EVALUATION and PLAN OF CARE SUBJECTIVE PRESENTATION AND ETIOLOGY Chief Complaint: Left knee pain and decreased strength and endurance limiting their ability to perform activities of daily living. Secondary Complaints: None Etiology: Date of surgery: 08/04/13 Left knee arthroscopic lateral meniscal saucerization, left kneearthroscopic partial lateral meniscectomy anterior horn. . Pattern Since Onset: Improved- each week is a little better Pertinent Medical / Surgical History: Epic Snapshot Reviewed with patient: Non-contributory. Pain / Symptom: Location: anterorlateral left knee, also surrounding patella. Character: pain. Frequency: Intermittent. Intensity: Current 0/10 at rest Pattern: worst with stairs and squatting. Pain / Symptoms are aggravated by: going up and down stairs (especially down), kneeling, squatting Pain / Symptoms are eased by: avoiding aggravating activities Specific Questions: pt hasn't used ice or pain meds in a few weeks LEVEL OF FUNCTION Current Functional Limitations: Activities of daily living: stairs, squatting, kneeling. Prior Functional Level: No functional limitations prior to onset of chief complaint. 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 Falls Screen: NA - Patient is less than 65 years of age OBJECTIVE: OBSERVATION: Patient presents in no acute distress INTEGUMENTARY: No abnormalities observed QUICK SCREEN: Not Assessed POSTURE: Static: sitting and standing WNL GAIT, LOCOMOTION, and BALANCE: Gait and Locomotion: Non-Antalgic RANGE OF MOTION Knee: Active: WFL / WNL - All Motions: Bilateral MUSCLE PERFORMANCE: Knee: MMT: Extension: 4/5 on left SPECIAL TESTS: Not Assessed PALPATION: Not Assessed NEUROLOGICAL TESTS: Not Assessed NEUROMOTOR DEVELOPMENT AND SENSORY INTEGRATION: WNL/WFL (Observed during evaluation) VENTILATION, RESPIRATION, AND CIRCULATION: WNL/WFL (At rest and with activity) ASSESSMENT: Physical Therapy Diagnosis: Signs and symptoms consistent with: right anterior knee pain with decreased quad control Patient requires skilled Physical Therapy intervention for the following impairments: Muscle strength / endurance limitations and Pain These impairments are limiting the patient's ability to perform the following functional activities:Daily, work, and/or sports and leisure activities. Medicare Claims Based Outcome Reporting: NA PLAN OF CARE: Skilled physical therapy interventions and plan to achieve goals and expected outcomes: ?? Patient education to inform, educate, and/or train patients, families, significant others, and caregivers to promote and optimize physical therapy services. ?? Coordinate, communicate, and document to ensure the patient receives appropriate, comprehensive, and efficient quality care. ?? Procedural interventions: education in self care / home management training to include instruction in: safe initiation of a phyiscal exercise program and therapeutic exercise to develop: strength and endurance Anticipated Goals and Expected Outcomes: Independent and safe with home exercise / self care programin 1 week(s). Rehab potential for achieving goals and expected outcomes: excellent Assessment will be ongoing with changes in treatment as indicated. Benefits/risks/alternatives to treatment have been reviewed and the patient/caretaker has been instructed to contact this office if they have any questions or concerns. This plan of care has been discussed with the patient/caretaker and the patient/caretaker is in agreement. Frequency / Duration: Patient will be seen for 1 session only. Radha ADELFO Rai Date: 09/15/2013 I certify that the above rehabilitation services are required and authorized by me, and that the patient's plan will be reviewed at 4 weeks. Certifying Provider Signature: per electronic co-sign Date: Electronic Date per Co-sign Today's Treatment: Initial Evaluation. THERAPEUTIC PROCEDURES Therapeutic Exercise: 15 minutes Knee: PRE's / Strengthenin) SLR to fatigue 2) sit to stand with focus on slow eccentric control- no hands x 10-15 reps 3) seated hamstring flexion with blue t-band x 10-15 reps HEP to be done 1x/day. Post treatment response: Patient demonstrates a excellent understanding of HEP / Self Care. Total Visit Time: 35 minutes Total Time-Based Code Only Minutes: 15 minutes. LINUX SYSTEM ADMINISTRATOR PRESENT: NA MULTIDISCIPLINARY PATIENT / FAMILY EDUCATION RECORD Department: Physical Therapy Readiness to Learn: Ability to understand verbal instructions, Ability to understand written instructions, Knowledge of educational needs / treatment plan Specific Barriers to Learning: None Referrals: None Learning Needs: Rehabilitation techniques to improve functional independence Who: Patient How: Demonstration, Verbal instructions, Written instructions Response: Appropriate verbal response, Asked questions, Demonstrated ability, Verbalized recall / understanding LANE AND ENGINE INSPECTOR documented in this encounter Plan of Treatment Not on filedocumented as of this encounter Visit Diagnoses Not on filedocumented in this encounter Care Teams Communications Supervisor Relationship Specialty Start Date End Date Timmy Perez MD PCP - Obstetrics/Gynecology 03/02/0807/[address] [address] Yung Madrigal MD PCP - Orthopaedics Orthopedics 08/26/12 RETIRED Winston Villatoro OD PCP - Ophthalmology Ophthalmology 02/11/13 [facility] [address] [facility] [address] [place] [address] Apple Sykes MD PCP - General Family Practice 05/04/13 10/25/[address] [place] [address] Westley Bates MD PCP - ENT Otolaryngology 05/14/13 07/28/18 XXX RETIRED XXX [address] [facility] [address] [place] [address] documented as of this encounter
--- OUTSIDE RECORDS SUMMARY | 2022-08-29 12:10 | XMS_ITS | Encounter Summary ---
:1975 Author Organization [facility] Address [address] [place] [address] Care Team Providers Name Role Phone Yung Madrigal MD Unavailable Unavailable Winston Villatoro OD Unavailable Westley Bates MD Unavailable Alessandra Erickson APRN MOLD FILLER AND DRAINER Primary Care Provider [phone] Encounter Details Date Type Department Care Team Description 10/26/2016 Radiant Appointment [facility] it for screening Clinic [facility] mammogram [address] [facility] [address] [place] [address] Social History Tobacco Use Types [...] Procedure Name Priority Date/Time Associated Diagnosis Comme [facility] SCREENING Routine 10/26/2016 1:45 PM Visit for screening Re sults for this BILATERAL W/ FLO FOOD SALES CLERK mammogram procedure are in the results section. documented in this encounter Results MA Screen Bilateral w/Flo (10/26/2016 1:45 PM FOOD SALES CLERK) Anatomical Region Laterality Modality Breast Bilateral Mammography Specimen (Source) Anatomical Location Collection Method / Collectio n Time Received Time / Laterality Volume Impressions 10/26/2016 2:21 PM FOOD SALES CLERK IMPRESSION: BI-RADS CATEGORY: 1 - ??Negative RECOMMENDED FOLLOW-UP: Annual Mammograph y. Exam results letter mailed to patient. VLAD GOMEZ MD Narrative 10/26/2016 2:21 PM FOOD SALES CLERK SCREENING MAMMOGRAM, BILATERAL, DIGITAL w/CAD AND TOMOSYNTHESIS - 10/26/2016 1:45 PM BREAST SYMPTOMS: No current breast compl aints. COMPARISON: ??Baseline. BREAST DENSITY: Heterogeneously dense. COMMENTS: No findings of suspicion for m alignancy. Procedure Note Vlad Gomez MD - 10/26/2016For matting of this note might be different from the original. SCREENING MAMMOGRAM, BILATERAL, DIGITAL w/CAD AND TOMOSYNTHESIS - 10/26/2016 1:45 PM BREAST SYMPTOMS: No current breast compl aints. COMPARISON: Baseline. BREAST DENSITY: Heterogeneously dense. COMMENTS: No findings of suspicion for m alignancy. IMPRESSION: BI-RADS CATEGORY: 1 - Negati ve RECOMMENDED FOLLOW-UP: Annual Mammograph y. Exam results letter mailed to patient. VLAD GOMEZ MD Alessandra Erickson HAND MIXER MOLD FILLER AND DRAINER IMG MAMMOGRAPHY ORDERAB LES documented in this encounter Visit Diagnoses Diagnosis Visit for screening mammogram Other screening mammogram documented in this encounter Care Teams Flyer Maker Relationship Specialty Start Date End Date Yung Madrigal MD PCP - Orthopaedics Orthopedics 08/26/12 RETIRED Winston Villatoro OD PCP - Ophthalmology Ophthalmology 02/11/[address] [facility] [address] [place] [address] [address] [place] [address] Westley Bates MD PCP - ENT Otolaryngology 05/14/13 07/28/18 XXX RETIRED XXX [address] [facility] [address] [place] [address] Alessandra Erickson, PCP - General Nurse Practitioner 10/26/16 02/06/17 HAND MIXER MOLD FILLER AND DRAINER [address] [facility] [place] [address] documented as of this encounter
--- OUTSIDE RECORDS SUMMARY | 2022-08-29 12:10 | XMS_ITS | Encounter Summary ---
:1975 Author Organization [facility] Address [address] [place] [address] Care Team Providers Name Role Phone Timmy Perez MD Unavailable Yung Madrigal MD Unavailable Unavailable Winston Villatoro OD Unavailable Apple Sykes MD Primary Care Provider Westley Bates MD Unavailable Encounter Details Date Type Department Care Team Description 08/04/2013 [facility] in Leah Martinez MD [facility] [address] [facility] [address] [place] [address] [place] [address] [phone] (Wo rk) Social History Tobacco Use Types Packs/Day Years Used Date Smoking Tobacco: Never Smokeless Tobacco: Never Alcohol Use Standard Drinks/Week Comments Yes 0 (1 standard drink = 0.6 oz pure alcoho l) minimal Sex Assigned at Date Recorded Not on file documented as of this encounter Progress Notes Leah Martini MD - 08/05/2013 9:30 AM CST PROCEDURE/OPERATIVE REPORT Date of Procedure: 08/04/2013 PREOPERATIVE DIAGNOSIS: Left knee lateral meniscal tear, 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 POSTOPERATIVE DIAGNOSIS: Tear anterior horn lateral meniscus left knee, discoid lateral meniscus left knee. OPERATION: Left knee arthroscopic lateral meniscal saucerization, left knee arthroscopic partial lateral meniscectomy anterior horn. SURGEON: Leah Martini M.D. HISTOLOGY SPECIALIST: Dahlia Morley PA-C. The assistance of Ms. Morley was required throughout the duration of the case in that she helped with limb positioning throughout the duration of the case as well assisting with holding instruments. Her assistance was also required with application of dressings, closure of the wound and transferring the patient back to the [facility] and returning them safely to the recovery room. ANESTHESIA: Spinal with MAC. FLUIDS: 1,650 cc of crystalloid. ESTIMATED BLOOD LOSS: 15 cc. TOURNIQUET TIME: 23 minutes. URINE OUTPUT: None. DRAINS: None. SPECIMENS: None. INTRAOPERATIVE CULTURES: None. COMPLICATIONS: None. ARTHROSCOPIC FINDINGS: Once the patient had her spinal in place and was sedated under MAC anesthesia, an exam under anesthesia of the left knee was performed and she was noted to have a 1A Mini's and 1A posterior drawer. The knee was stable to varus and valgus stress at 0 and 30 degrees of flexion. Once our arthroscopic instruments were inside the knee we performed a diagnostic arthroscopy and she was noted to have grade 2/3 changes of the patella both medial and lateral facets. She was noted to have a focal grade 3/4 lesion in the mid-portion of her trochlea. Otherwise the surrounding areas of the trochlea were grade 1/2. She was noted to have grade 1 changes of the medial femoral condyle and the medial tibial plateau. She was noted to have a focal grade 3 defect in the lateral tibial plateau, otherwise grade 1 changes in the remaining areas of the lateral tibial plateau. She was noted to have grade 1/2 changes in the lateral femoral condyle. The ACL and PCL were intact. The patient was noted to have a medial meniscus that was intact with no tears. She was noted to have a discoid lateral meniscus with a tear in the anterior horn region. With probing the lateral meniscus was noted to be stable and not hypermobile. IMPLANTS: None. DISPOSITION: To PACU in stable condition. INDICATIONS FOR SURGERY: Ms. Zamora is a very pleasant 37-year-old woman who I initially saw on July 14, 2013 in clinic for complaints of knee pain. My initial evaluation raised suspicion for possible meniscal injury. An MRI was obtained and the patient was noted to have findings on the MRI concerning for 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 She was also noted to have changes in the anterior horn region of the lateral meniscus indicative of a tear of the meniscus. Treatment options were discussed with the patient. Ultimately she elected to go forward with the above-listed procedure rather than continuing with nonoperative management due to the fact that the symptoms have been quite bothersome for her for several months. We did discuss all options including operative and nonoperative. The risks and benefits of operative intervention were discussed and included but were not limited to , heart attack, stroke, blood clot, bleeding, damage to nearby blood vessels and nerves, surgical site infection, failure to or difficulty healing, persistent pain, possible need for future surgery. Ultimately the patient elected to go forward with the above-listed procedure. Informed consent was obtained preoperatively. The patient was seen by her primary care provider for preoperative evaluation and deemed medically fit for surgery. DESCRIPTION OF THE PROCEDURE: On the morning of August 04, 2013 the patient was seen and identified in the preoperative holding area. The operative site was marked. It was confirmed that informed consent was obtained and the signatures were confirmed. The patient was then brought to the operating room and a spinal anesthesia was placed by the anesthesia team. The patient was then positioned supine on the regular operating room table and underwent successful induction of MAC anesthesia. A tourniquet was applied to the proximal aspect of the patient's left lower extremity. At that point an exam under anesthesia was performed of the left knee. The left knee was then scrubbed with a chlorhexidine preoperative scrub followed by cleansing of the proposed operative site on the anterior aspect of the left knee with alcohol-soaked gauze. The left lower extremity was then prepped and draped in the usual sterile fashion. A time out was held in accordance with hospital policy where the patient was identified by name, medical record number and date. Surgeon's markings were noted on the operative site. It was confirmed that the patient had received preoperative antibiotics consisting of 2 grams of Ancef given IV once preoperatively. We first used a surgical marker to sarah out the proposed portal incision sites in the anterolateral and anteromedial aspects of the knee at the level of the joint line and a superomedial outflow portal. We then injected each of the three sites with a local anesthetic consisting of 0.25% Marcaine with epinephrine. A total of 10 cc were used amongst all three of the portal sites. An 11 blade was used to make the skin incision in the anterolateral portal sites. The arthroscope was then introduced into the knee and the superomedial outflow portal was then created in standard fashion. We then created the anteromedial portal in standard fashion under direct visualization with the assistance of a spinal needle. We then performed diagnostic arthroscopy of the left knee with the findings as noted above and the intraoperative findings section of this dictation. After diagnostic arthroscopy we then used a combination of motorized lucy and manually-operated meniscal biters to debride the tear of the anterior horn of the lateral meniscus and then to perform saucerization of the discoid lateral meniscus. While performing the saucerization, care was taken to preserve a rim of approximately 10 mm of residual meniscus. Once the saucerization was complete, we used a motorized shaver to ensure a gradual seamless transition along all of the edges of the meniscus. We then used the arthroscope to perform another diagnostic arthroscopy to ensure that there were no loose meniscal fragments floating in the joint. After we confirmed that there were no loose chondral fragments we used suction to remove any irrigant arthroscopic fluid from the knee and then withdrew all of our arthroscopic instruments and turned our attention to closure. Each of the portal incisions was closed with 3-0 nylon suture in an interrupted standard fashion. Sterile dressings were then applied followed by application of a double 6 inch Darryl wrap for light compression involving the whole lower extremity up to the mid-thigh region. It should be noted that in the mid-portion of the case while performing the saucerization we did inflate the tourniquet. The tourniquet was released at the time of closure for a total tourniquet time of 23 minutes. After application of dressings the patient was transferred over to the [facility] and brought to the PACU in stable condition. All counts were correct at the end of the case. There were no complications. POSTOPERATIVE PLAN: 1. The patient will discharge home as a same-day procedure. 2. The patient is to leave her dressings on and in place until postoperative day three at which point she may remove them and shower. However, she is to avoid any soaking/baths/swimming pools/hot tubs. 3. The patient may mobilize with crutches postoperatively and gradually wean from them over the next several days after surgery as tolerated. 4. The patient may weight bear as tolerated on her left lower extremity and perform range of motion as tolerated to her left knee. 5. The patient is to be seen back in clinic for initial postoperative visit at 10-14 days postoperative. Leah Martini M.D. SHIRA/lianna cc: TING MACHINE OPERATOR documented in this encounter Plan of Treatment Not on filedocumented as of this encounter Visit Diagnoses Not on filedocumented in this encounter Care Teams Dog Boarder Relationship Specialty Start Date End Date Timmy Perez MD PCP - Obstetrics/Gynecology 03/02/0807/[address] [address] Yung Madrigal MD PCP - Orthopaedics Orthopedics 08/26/12 RETIRED Winston Villatoro OD PCP - Ophthalmology Ophthalmology 02/11/13 [facility] [address] [facility] [address] [place] [address] Apple Sykes MD PCP - General Family Practice 05/04/13 10/25/[address] [place] [address] Westley Bates MD PCP - ENT Otolaryngology 05/14/13 07/28/18 XXX RETIRED XXX [address] [facility] [address] [place] [address] documented as of this encounter
--- OUTSIDE RECORDS SUMMARY | 2022-08-29 12:10 | XMS_ITS | Encounter Summary ---
:1975 Author Organization [facility] Address [address] [place] [address] Care Team Providers Name Role Phone Timmy Perez MD Unavailable Yung Madrigal MD Unavailable Unavailable Winston Villatoro OD Unavailable Apple Sykes MD Primary Care Provider Westley Bates MD Unavailable Reason for Visit Reason Onset Date Comments Triage 08/04/2013 [facility] Triage Call Summary Encounter Details Date Type Department Care Team Description 08/04/2013 Telephone [facility] Frw, None Michael hobson ([facility] Triage in [facility] Call Summary) [address] [place] [address] Social History Tobacco Use Types Packs/Day Years Used Date Smoking Tobacco: Never Smokeless Tobacco: Never Alcohol Use Standard Drinks/Week Comments Yes 0 (1 standard drink = 0.6 oz pure alcoho l) minimal Sex Assigned at Date Recorded Not on file documented as of this encounter Miscellaneous Notes Telephone Encounter - Balloon Design PrinterJuan Jose - 08/05/2013 8:15 AM CST Client: [facility] After Hours ExpertRN Call ID: [id number] Patient Name: Mahad Service Date/Time: August 04, 2013 19:34 Duration: 00:12:51 Age: 37 Y Provider: Telma Alva R.N. Pager: Birthdate: 1975 Sex: F Address: [address] [place] [address] City: [place], [place] Service: [facility] [place]IEF COMPLAINT / PURPOSE OF VISIT Triage nurse call: Alcon Zamora is a 37 year old woman with vomiting or nausea and a request for a referral Vomiting and headache.. Calling from: [phone] HISTORY OF PRESENT ILLNESS: 1. Vomiting or nausea Vomiting or nausea (Last episode of vomiting prior to calling.) Headache Precipitating emergent or urgent event for vomiting or nausea: surgery in the past two weeks Arthroscopic knee surgery completed about 5 hours ago) Vomiting (vomiting for the past 4-1/2 hours with headache for the past 1 hour. Has tried taking sipsof fluid, red Jello and soup without improvement) Vomiting is a single continuous episode Hydration status: no dehydration Current use of medications New medication or recent change in dosage prior to the onset of symptoms (Spinal for surgery and pain medicines) Symptoms may be caused by new medication or change in dose unsure Missed needed medication due to vomiting Best description of vomiting needed medication: vomited once, more than 15 minutes after taking needed oral medication Precipitating event for nausea or vomiting: after traveling by car, train, plane or boat PERTINENT NEGATIVES No: current No: new confusion or inability to stay alert and awake ; new neck pain and difficulty bending the neck ; new weakness, numbness or tingling on one half of the body (an arm and leg) ; new blurred, dim or double vision ; any chest pain or discomfort ; new shortness of breath ; currently feeling like youare going to collapse every time you stand or sit up ; purple or red rash/blotches that stay when pressed by a glass (purpuric rash) ; vomiting blood ; vomit that looks like ground coffee or black or sticky, tar-like stools No: abdominal pain or dizziness No: fever of more than 100.4 F (38 C) or suspected fever No: description as the worst headache in life No: ability to drink fluids (sips of water and Jello, vomiting it up withing 10- 15 minutes) No: diabetes or ventriculoperitoneal shunt No: recent increased thirst and urination or recent unintentional weight loss with normal or increased appetite No: weakened immune system IMPRESSION / REPORT / PLAN: 1. Vomiting or nausea Possible side effects of a medication ; Vomiting more than 15 minutes after taking a medication ; Possible motion sickness ; Home care for vomiting ; Home care to prevent dehydration Plan: Provider Advice 4 hours. Caller agrees Carepoints reviewed: Don't eat or drink anything for one hour after vomiting. Then take small, frequent sips (1 to 2 teaspoons, or 5 to 10 milliliters) of oral rehydration solution (Pedialyte, Ricelyte, others) every 10 minutes. Eat bland foods. Start with small portions and gradually increase amounts as tolerated. Good choicesinclude soda crackers, cereal, potatoes, rice, applesauce, noodles and bland soups. Contact the nurse line for further advice if your symptoms persist or worsen, or if new symptoms develop. Follow the instructions given by your health care provider. Follow up directly with that health careprovider as needed. REFERRALS: Referral type: provider or program referral (Measuring Machine Operator service for Dr. Weiner, [facility], [place] ) FINAL CALL DETAILS: Deliver call summary through email - Not eligible Intended level of care if assessment was not available: Routine appointment Caller verbalized an understanding of the information and instructions given Caller's primary language: Tu[place] PERTINENT NEGATIVES No: charts accessed (none selected from list) TENANCE ASSISTANT documented in this encounter Plan of Treatment Not on filedocumented as of this encounter Visit Diagnoses Not on filedocumented in this encounter Care Teams Executive Administrative Asst Relationship Specialty Start Date End Date Timmy Perez MD PCP - Obstetrics/Gynecology 03/02/0807/[address] [address] Yung Madrigal MD PCP - Orthopaedics Orthopedics 08/26/12 RETIRED Winston Villatoro OD PCP - Ophthalmology Ophthalmology 02/11/13 [facility] [address] [place] [address] [address] [place] [address] Apple Sykes MD PCP - General Family Practice 05/04/13 10/25/[address] [place] [address] Westley Bates MD PCP - ENT Otolaryngology 05/14/13 07/28/18 XXX RETIRED XXX 701 [facility] [address] [place] [address] documented as of this encounter
--- OUTSIDE RECORDS SUMMARY | 2022-08-29 12:10 | XMS_ITS | Encounter Summary ---
:1975 Author Organization [facility] Address [address] [place] [address] Care Team Providers Name Role Phone Timmy Perez MD Unavailable Yung Madrigal MD Unavailable Unavailable Winston Villatoro OD Unavailable Apple Sykes MD Primary Care Provider Westley Bates MD Unavailable Encounter Details Date Type Department Care Team Description 09/15/2013 [facility] Leah browning MD [facility] 701 [facility] [address] [place] [address] [place] [address] [phone] (Wo rk) Social History Tobacco Use Types [...] on filedocumented in this encounter Care Teams Cafeteria Associate Relationship Specialty Start Date End Date Timmy Perez MD PCP - Obstetrics/Gynecology 03/02/0807/[address] [address] Yung Madrigal MD PCP - Orthopaedics Orthopedics 08/26/12 RETIRED Winston Villatoro, AMELIE PCP - Ophthalmology Ophthalmology 02/11/13 [facility] 701 [facility] [address] [place] [address] Apple Sykes MD PCP - General Family Practice 05/04/13 10/25/[address] [place] [address] Westley Bates MD PCP - ENT Otolaryngology 05/14/13 07/28/18 XXX RETIRED XXX 701 [facility] [address] [place] [address] documented as of this encounter
--- OUTSIDE RECORDS SUMMARY | 2022-08-29 12:10 | XMS_ITS | Encounter Summary ---
:1975 Author Organization [facility] Address [address] [place] [address] Care Team Providers Name Role Phone Timmy Perez MD Unavailable Yung Madrigal MD Unavailable Unavailable Winston Villatoro OD Unavailable Apple Sykes MD Primary Care Provider Westley Bates MD Unavailable Reason for Visit Reason Comments Schedule Surgery Left knee arthroscopy, parti al meniscectomy, possible meniscal sauserization Encounter Details Date Type Department Care Team Description 07/23/2013 [facility] Kayley Piña Schedule Surgery Health/Nurse System in [address] ([place] [address] arthroscopy, p... [address] [phone] [place], [place] (Work) [address] Social History Tobacco Use Types Packs/Day Years Used Date Smoking Tobacco: Never Smokeless Tobacco: Never Alcohol Use Standard Drinks/Week Comments Yes 0 (1 standard drink = 0.6 oz pure alcoho l) minimal Sex Assigned at Date Recorded Not on file documented as of this encounter Nursing Notes 07/23/2013 12:00 PM CST >> Ray Kirk RN SatJul 29, 2013 9:32 AM Pre-op teaching reviewed with patient including instruction on: -Must shower the night before surgery and the morning of surgery to reduce the risk of infection. -For procedures above the shoulders patient must wash their hair the night before or the morning of surgery and then no styling products in the hair. -trolley coach driver required for same day surgery patients, patient should not be alone for 24 hours after surgery and most patients are discharged 1-3 hours after surgery -If there are changes in health prior to surgery notify department performing surgery -where and how to check in on day of surgery -what to bring with on the day of the surgery Fasting guidelines: Reviewed the following: -Adults and children over 2 years old - Nothing to eat or drink after midnight the day before surgery with the exception that clear liquids only are allowed until 4 hours before arrival time. At 4 hours before arrival time nothing by mouth. Patient and/or parent/guardian was informed that failure to follow the fasting guidelines may resultin case cancellation. Planning for surgery: Reviewed/completed the following: -pre-op physical , -Surgery brochure given or mailed to patient if they have not received one already, -Reviewed surgical site infection teaching sheet, - Reviewed Orthopedic Pain Management letter for all orthopedic cases Post op appointments: -1st po with surgeon or physician undertaker assistant made documented in this encounter Plan of Treatment Not on filedocumented as of this encounter Visit Diagnoses Not on filedocumented in this encounter Care Teams Cabbage Salter Relationship Specialty Start Date End Date Timmy Perez MD PCP - Obstetrics/Gynecology 03/02/0807/[address] [address] Yung Madrigal MD PCP - Orthopaedics Orthopedics 08/26/12 RETIRED Winston Villatoro, AMELIE PCP - Ophthalmology Ophthalmology 02/11/13 [facility] 701 [facility] [address] [place] [address] Apple Sykes MD PCP - General Family Practice 05/04/13 10/25/[address] [place] [address] Westley Bates MD PCP - ENT Otolaryngology 05/14/13 07/28/18 XXX RETIRED XXX 701 [facility] [address] [place] [address] documented as of this encounter
--- OUTSIDE RECORDS SUMMARY | 2022-08-29 12:10 | XMS_ITS | Encounter Summary ---
:1975 Author Organization [facility] Address [address] [place] [address] Care Team Providers Name Role Phone Timmy Perez MD Unavailable Yung Madrigal MD Unavailable Unavailable Winston Villatoro OD Unavailable Apple Sykes MD Primary Care Provider Westley Bates MD Unavailable Reason for Referral - Closed Specialty Diagnoses / Procedures Referred By Contact Refer red To Contact Diagnoses Knee pain Leah Martini MD [address] [address] Fax: Referral ID Status Reason Start Date Expiration Date Visits Requ ested Visits Authorized [id number] Closed 09/14/2013 03/13/2014 1 1 EYING OR SPATIAL SCIENCE TECHNICIAN Reason for Visit Reason Comments Surgical Followup Left knee DOS 08/04/13 Encounter Details Date Type Department Care Team Description 09/14/2013 Office Visit [facility] Leah Martini n (Primary Dx); System in Kehinde Tejada MD Aftercare following surgery of the [facility], [facility] Orthopedics [address] [place] [address] [place] Kehinde [place] [address] [phone] Social History Tobacco Use Types Packs/Day Years Used Date Smoking Tobacco: Never Smokeless Tobacco: Never Alcohol Use Standard Drinks/Week Comments Yes 0 (1 standard drink = 0.6 oz pure alcoho l) minimal Sex Assigned at Date Recorded Not on file documented as of this encounter Progress Notes eLah Martini MD - 09/15/2013 11:10 AM CST CLINIC ENCOUNTER DATE OF SURGERY: 08/04/2013. PROCEDURE PERFORMED: Left knee arthroscopic lateral meniscal saucerization, left knee arthroscopic partial lateral meniscectomy anterior horn. INTERVAL HISTORY: Ms. Zamora returns today about six weeks out from the above-listed surgery. Overall she has been doing well. She has improved significantly since our last visit per her report. She states overall she still does have pain going up and down stairs. It is located anterolaterally at the lateral joint line level. She has not had any issues with swelling. In fact, that has improved since our last visit. At this point, pain is not really an issue and she is not taking any medications for it. She is not limping and has not had any issues with wound healing. When I ask her more about her pain, it is located anterolaterally at the level of the joint line as noted above but she does report it has been improving from week to week. This week she feels much better than she did last week. She has some questions about it due to its lingering nature. PHYSICAL EXAMINATION: On exam Ms. Zamora is well appearing, in no acute distress. She has a very pleasant demeanor. All of her wounds from the portal sites about the left knee are well healed. There are no signs of infection. She has mild palpable scar tissues of the knee anterolateral portal site. She is mildly tender with firm palpation just medial to the anterolateral portal site which is just lateral to the patellar tendon. She has excellent range of motion from 0 to 130 degrees of flexion. She is able to fully weight bear and ambulate without any antalgia in her gait. There is no limping. She does demonstrate an attempt at wall sit and is only able to get down to the point where she is only flexing the knee at about 35 to 40 degrees before she has the pain in the anterolateral aspect of the left knee. She is, however, as noted above able to perform full flexion when nonweightbearing. ASSESSMENT: Six weeks status post left knee arthroscopic lateral meniscal saucerization, left knee arthroscopic lateral partial meniscectomy anterior horn. PLAN: I discussed with Ms. Zamora that at this point her range of motion is excellent; however, the pain that she has when she is bearing weight seems to be due to her quadriceps. This is especially notable when she attempted to do the wall sit today as well as her complaints of going up and down stairs both of which are activities that require good quadriceps strength. At this point I recommend that she go to physical therapy for one visit to learn some exercises to work on strengthening her quadriceps as well as her hamstrings. I would like to see her back in six weeks. At that point we will do a final recheck. She can use anti-inflammatories on an as-needed basis. Leah Martini M.D. SHIRA// cc: EYING OR SPATIAL SCIENCE TECHNICIAN documented in this encounter Nursing Notes 09/14/2013 8:30 AM CST >> GALILEO MARTINEZ [facility] [place] Sep 14, 2013 8:44 AM Left knee arthroscopic lateral meniscal saucerization, left knee arthroscopic partial lateral meniscectomy anterior horn. DOS 08/04/13 Pain 10/26 documented in this encounter Plan of Treatment Not on filedocumented as of this encounter Visit Diagnoses Diagnosis Knee pain - Primary Pain in joint, lower leg Aftercare following surgery of the [facility], [facility] documented in this encounter Care Teams Tankage Supervisor Relationship Specialty Start Date End Date Timmy Perez MD PCP - Obstetrics/Gynecology 03/02/0807/[address] [address] [address] Yung Madrigal MD PCP - Orthopaedics Orthopedics 08/26/12 RETIRED Winston Villatoro OD PCP - Ophthalmology Ophthalmology 02/11/13 [facility] 701 [facility] [address] [place] [address] Apple Sykes MD PCP - General Family Practice 05/04/13 10/25/[address] [place] [address] Westley Bates MD PCP - ENT Otolaryngology 05/14/13 07/28/18 XXX RETIRED XXX 701 [facility] [address] [place] [address] documented as of this encounter
--- OUTSIDE RECORDS SUMMARY | 2022-08-29 12:10 | XMS_ITS | Encounter Summary ---
:1975 Author Organization [facility] Address [address] [place] [address] Care Team Providers Name Role Phone Timmy Perez MD Unavailable Yung Madrigal MD Unavailable Unavailable Winston Villatoro OD Unavailable Apple Sykes MD Primary Care Provider Westley Bates MD Unavailable Reason for Visit Reason Comments Schedule Surgery Letter 07/23/13 Encounter Details Date Type Department Care Team Description 07/29/[address] [facility] Surgery Health/Nurse System in [place] GEMA Bell (Letter 1 09/22/12) Visit Orthopedics [address] [place] [address] Social History Tobacco Use Types Packs/Day [...] on filedocumented in this encounter Care Teams Railroad Switchman Relationship Specialty Start Date End Date Timmy Perez MD PCP - Obstetrics/Gynecology 03/02/0807/[address] [address] Yung Madrigal MD PCP - Orthopaedics Orthopedics 08/26/12 RETIRED Winston Villatoro OD PCP - Ophthalmology Ophthalmology 02/11/13 [facility] 701 [facility] [address] [place] [address] Apple Sykes MD PCP - General Family Practice 05/04/13 10/25/[address] [place] [id number] Westley Bates MD PCP - ENT Otolaryngology 05/14/13 07/28/18 XXX RETIRED XXX 701 [facility] [address] [place] [address] documented as of this encounter
--- OUTSIDE RECORDS SUMMARY | 2022-08-29 12:10 | XMS_ITS | Encounter Summary ---
:1975 Author Organization [facility] Address [address] [place] [address] Care Team Providers Name Role Phone Yung Madrigal MD Unavailable Unavailable Winston Villatoro OD Unavailable Westley Bates MD Unavailable SerumClara MD Primary Care Provider [phone] SerumClara MD Unavailable SerumClara MD Unavailable [phone] Reason for Visit Reason Onset Date Comments Referral 05/27/2017 MRI for neck Encounter Details Date Type Department Care Team Description 05/27/2017 Telephone [facility] Clara Cornell Referral (MRI for neck) Clinic Kavon Garland MD [address] [address] [facility] [place] [address] [place], [place] [address] (Wo rk) Social History Tobacco Use Types Packs/Day Years Used Date Smoking Tobacco: Never Smokeless Tobacco: Never Alcohol Use Standard Drinks/Week Comments Yes 0 (1 standard drink = 0.6 oz pure alcoho l) minimal Sex Assigned at Date Recorded Not on file documented as of this encounter Miscellaneous Notes Telephone Encounter - Chelsy Singh RN - 05/29/2017 9:16 AM CDT Patient sent My chart message today stating that she is going to wait to proceed with MRI until 2018. Edward Singh RN Telephone Encounter - Breanna Henderson RN - 05/27/2017 4:47 PM CDT Left message on answering machine for patient to call back. Breanna Henderson RN Telephone Encounter - Mayela Ochoa - 05/27/2017 10:40 AM CDT Reason for Call: Request for an order or referral: Order or referral being requested: MRI of neck (upright) Date needed: as soon as possible Has the patient been seen by the PCP for this problem? YES Additional comments: Patient states that the referral needs to be for an upright MRI of her neck Phone number Patient can be reached at: Home number on file [phone] (home) Best Time: anytime Can we leave a detailed message on this number? YES Mayela Ochoa, Government Affairs Director [facility] documented in this encounter Plan of Treatment Not on filedocumented as of this encounter Visit Diagnoses Not on filedocumented in this encounter Additional Health Concerns Assessment Noted Time PHQ-9 Depression Total Score: 0 02/08/2017 7:29 AM CDT documented as of this encounter Care Teams Nurse Practitioner Physicians Assistant Relationship Specialty Start Date End Date Yung Madrigal MD PCP - Orthopaedics Orthopedics 08/26/12 RETIRED Winston Villatoro, AMELIE PCP - Ophthalmology Ophthalmology 02/11/13 [facility] [address] [place] [address] Westley Bates MD PCP - ENT Otolaryngology 05/14/13 07/28/18 XXX RETIRED XXX 701 [facility] [address] [place] [address] Clara Conrell MD PCP - General Internal Medicine 02/07/17 09/20/20 Clara Cornell MD PCP - Assigned PCP 01/17/17 11/18/18 [facility] [address] [place] [id number] Clara Cornell MD Assigned PCP 01/17/17 07/16/20 [facility] [address] [place] [address] documented as of this encounter
--- OUTSIDE RECORDS SUMMARY | 2022-08-29 12:11 | XMS_ITS | Encounter Summary ---
:1975 Author Organization [place] Address [address] [place] [address] Care Team Providers Name Role Phone Timmy Perez MD Unavailable Yung Madrigal MD Unavailable Unavailable Winston Villatoro OD Unavailable Apple Sykes MD Primary Care Provider Westley Bates MD Unavailable Reason for Visit Reason Comments Back Pain rc back Encounter Details Date Type Department Care Team Description 06/17/2013 Office Visit [facility] Yung Madrigal ation of cervical System in [place] Shore MD intervertebral disc Orthopedics RETIRED (Primary Dx) [address] [place] [address] Social History Tobacco Use Types Packs/Day Years Used Date Smoking Tobacco: Never Smokeless Tobacco: Never Alcohol Use Standard Drinks/Week Comments Yes 0 (1 standard drink = 0.6 oz pure alcoho l) minimal Sex Assigned at Date Recorded Not on file documented as of this encounter Progress Notes Yung Madrigal MD - 06/18/2013 4:21 PM CDT CLINIC ENCOUNTER Alcon had a flexion extension MRI scan done of her cervical spine and presents with the disc and with the hard copies as well as the interpretation. She has also been to the [facility] where she has been diagnosed as having a version of Lizy-Danlos syndrome. I have reviewed the MRI scan of the C-spine and it shows degenerative disc changes at C5-6 and a possible disc bulge at C6-7 on the left side. Her symptoms are stiffness and pain in the neck and occasional funny dysesthesias in the middle, ring and little fingers of the left hand. Neurologic examination today discloses a somewhat positive Lhermitte sign when she tilts her head to the left and extends it but her deep tendon reflexes are symmetric at the elbows. Her strength is fully intact throughout and a sensory examination today is essentially normal and intact. Alcon has been followed at the [facility] and has another appointment in a week and a half and would like to do her treatments whether they be physical therapy, medications and so forth here in [place]. I have told her we would be more than happy to do that. We would want to receive the diagnosis and treatment plan from the [facility] after she has been seen down there and then could follow the instructions that the physicians at [place] wish us to do for her. With that in mind I gave her our telephone and fax numbers as well as address and will wait to hear from [place] and from [place] regarding further needs. Return to clinic gloria Madrigal M.D. ERIKA/sandor cc: documented in this encounter Nursing Notes 06/17/2013 9:40 AM CDT >> IVORY Yoo Jun 17, 2013 9:50 AM Pt here to review lumbar mri from [facility] documented in this encounter Plan of Treatment Not on filedocumented as of this encounter Visit Diagnoses Diagnosis Degeneration of cervical intervertebral disc - Primary documented in this encounter Care Teams Assistant Auto Center Manager Relationship Specialty Start Date End Date Timmy Perez MD PCP - Obstetrics/Gynecology 03/02/0807/[address] [address] Yung Madrigal MD PCP - Orthopaedics Orthopedics 08/26/12 RETIRED Winston Villatoro, AMELIE PCP - Ophthalmology Ophthalmology 02/11/13 [facility] [address] [facility] [address] [place] [address] Apple Sykes MD PCP - General Family Practice 05/04/13 10/25/[address] [place] [address] Westley Bates MD PCP - ENT Otolaryngology 05/14/13 07/28/18 XXX RETIRED XXX 701 [facility] [address] [place] [address] documented as of this encounter
--- OUTSIDE RECORDS SUMMARY | 2022-08-29 12:11 | XMS_ITS | Encounter Summary ---
:1975 Author Organization [place] Address [address] [place] [address] Care Team Providers Name Role Phone Timmy Perez MD Unavailable Yung Madrigal MD Unavailable Unavailable Winston Villatoro OD Unavailable Apple Sykes MD Primary Care Provider Westley Bates MD Unavailable Encounter Details Date Type Department Care Team Description 07/06/2013 [facility] Escobar Nesbitt Swelling of left knee Health/Nurse System in [place] MD Rick joint Visit Imaging [address] [address] [place], [place] [phone] Social History Tobacco Use Types Packs/Day Years Used Date Smoking Tobacco: Never Smokeless Tobacco: Never Alcohol Use Standard Drinks/Week Comments Yes 0 (1 standard drink = 0.6 oz pure alcoho l) minimal Sex Assigned at Date Recorded Not on file documented as of this encounter Progress Notes Escobar Nesbitt MD - 07/07/2013 11:57 AM CDT Quick Note: Results discussed with patient at clinic visit. documented in this encounter Plan of Treatment Not on filedocumented as of this encounter Procedures Procedure Name Priority Date/Time Associated Diagnosis Comme nts US LOWER EXTREMITY Routine 07/06/2013 4:15 PM Swelling of left Results for this VENOUS DUPLEX LEFT CDT knee joint procedure are in the results section. documented in this encounter Results US Lower Extremity Venous Duplex Left (07/06/2013 4:15 PM CDT) Anatomical Region Laterality Modality Vascular, Thigh, Leg Other Specimen (Source) Anatomical Collection Method Collection Time Re ceived Time Location / / Volume Laterality 07/06/2013 4:15 PM CDT Impressions 07/06/2013 4:20 PM CDT IMPRESSION: Negative for DVT left lower extremity. KAYLIN DE LEON MD Narrative 07/06/2013 4:20 PM CDT VENOUS DOPPLER ULTRASOUND LEFT LOWER EXT REMITY ?? 07/06/2013 4:15 PM ?? HISTORY: Left leg pain and swelling. FINDINGS: Color flow and ??spectral Dopp ler with waveform analysis was performed. Deep venous structures of the left lower extremity are patent. There is no evidence of DVT. ??N ormal compressibility, phasicity and patency of the common femo ral, superficial femoral, popliteal and visible posterior tibial v eins. No thrombus seen. Doppler waveforms appear normal. Procedure Note Kaylin De Leon MD - 07/06/2013Format ting of this note might be different from the original. VENOUS DOPPLER ULTRASOUND LEFT LOWER EXT REMITY 07/06/2013 4:15 PM HISTORY: Left leg pain and swelling. FINDINGS: Color flow and spectral Dopple r with waveform analysis was performed. Deep venous structures of the left lower extremity are patent. There is no evidence of DVT. Nor mal compressibility, phasicity and patency of the common femo ral, superficial femoral, popliteal and visible posterior tibial v eins. No thrombus seen. Doppler waveforms appear normal. IMPRESSION IMPRESSION: Negative for DVT left lower extremity. KAYLIN DE LEON MD Escobar Nesbitt MD IMG US ORDERABLES documented in this encounter Visit Diagnoses Diagnosis Swelling of left knee joint Effusion of lower leg joint documented in this encounter Care Teams Cap Coverer Relationship Specialty Start Date End Date Timmy Perez MD PCP - Obstetrics/Gynecology 03/02/0807/[address] [address] Yung Madrigal MD PCP - Orthopaedics Orthopedics 08/26/12 RETIRED Winston Villatoro OD PCP - Ophthalmology Ophthalmology 02/11/[address] [place] [address] Apple Sykes MD PCP - General Family Practice 05/04/13 10/25/[address] [place] [id number] Westley Bates MD PCP - ENT Otolaryngology 05/14/13 07/28/18 XXX RETIRED XXX [address] [facility] [address] [place] [address] documented as of this encounter
--- OUTSIDE RECORDS SUMMARY | 2022-08-29 12:11 | XMS_ITS | Encounter Summary ---
:1975 Author Organization [facility] Address [address] [place] [address] Care Team Providers Name Role Phone Timmy Perez MD Unavailable Yung Madrigal MD Unavailable Unavailable Winston Villatoro OD Unavailable Apple Sykes MD Primary Care Provider Westley Bates MD Unavailable Reason for Visit Reason Comments Nasal Congestion difficulty breathing through nose, snoring Suspected Hearing Decrease turning volume up on TV to hear the conversation Encounter Details Date Type Department Care Team Description 05/11/2013 Office Visit [facility] Westley Bates MD Unspecified hearing loss (Primary Dx); System in [place] XXX RETIRED X XX Chronic rhinitis ENT [facility] [address] [facility] [address] [place], [place] [address] [phone] Social History Tobacco Use Types Packs/Day Years Used Date Smoking Tobacco: Never Smokeless Tobacco: Never Alcohol Use Standard Drinks/Week Comments Yes 0 (1 standard drink = 0.6 oz pure alcoho l) minimal Sex Assigned at Date Recorded Not on file documented as of this encounter Last Filed Vital Signs Vital Sign Reading Time Taken Comments Blood Pressure 137/92 05/11/2013 8:43 AM CDT Pulse 66 05/11/2013 8:43 AM CDT Temperature 37.1 ??C (98.8 ??F) 05/11/2013 8:43 AM CDT Respiratory Rate - - Oxygen Saturation - - Inhaled Oxygen Concentration - - Weight - - Height - - Body Mass Index - - documented in this encounter Patient Instructions Patient InstructionsWestley Bates MD - 05/11/2013 9:08 AM CDT Use nasal saline spray in the nose 2-5 times a day documented in this encounter Progress Notes Westley Bates MD - 05/13/2013 9:34 AM CDT CLINIC ENCOUNTER CHIEF COMPLAINT: Difficulty breathing through the nose and problems with hearing. HISTORY: Alcon comes in for evaluation of the two above chief complaints. In terms of her difficulty breathing through her nose, this has been a lifetime problem. It has remained about the same but it is very frustrating for her. It seems to be a problem on both sides but it does alternate from side to side. She has not had any treatment for this. She does snore at night. She is unable to eat and breathe simultaneously. She thinks that she may have broken her nose when she was younger but was never medically seen at that time. She is not aware of any environmental allergies and allergies do not seem to run in the family. She has not had a lot of significant problems with recurrent sinusitis. She does have a history of bronchopulmonary dysplasia since with apparently a number of cysts in her lungs. She has had a pneumonia as a result of this in the past. Her second problem deals with difficulty with hearing. She says her ears feel full. The TV needs to be played louder than the rest of the family. She has difficulty whenever there is any background noise. She has not had a recent hearing test. She does say that her uncle and several cousins have hearing aids. She has never had surgery. She denies any otalgia, otorrhea, tinnitus, vertigo or dizziness. She has had minimal noise exposure. Her new patient questionnaire and her medical history in [facility] were all reviewed. 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 She lives over in [place]. She has not been a smoker. REVIEW OF SYSTEMS: She does have some history of some anxiety and depression, snoring, cough, shortness of breath, sneezing. Other areas are negative except HPI. PHYSICAL EXAMINATION: Her vital signs are normal. She is alert, pleasant. Just slightly apprehensive. She does seem to be a preferential mouth breather. Mood and affect are appropriate. The auricles, canals, tympanic membranes are normal. The TMs move well to pneumotoscopy. External nose is somewhat narrow. Internal exam shows the inferior turbinates are both quite congested. She has a little bit of a widened columella. I did decongest the nose. The septum actually looks quite straight. Following decongestant she is able to breathe much better through her nose. Lips, teeth, tongue, palate, oropharynx all look normal. Tonsils are relatively small. The nasopharynx viewed with the mirror is normal. Hypopharynx and larynx viewed with the mirror appears normal. Somewhat of a thick neck. No adenopathy. Thyroid and salivary glands feel normal. Tuning forks suggest the right ear is slightly better with a 256, left better with a 512. Rinne's are positive. IMPRESSION: I suspect that she may have some vasomotor rhinitis with narrow nasal passages bilaterally. I would like to put her on Flonase nasal spray two puffs each side once a day. I would like her to be on this for at least a month. I would like to see her back in a month's time. If she is still congested, we could consider some turbinate reduction procedure which might help her breathe through her nose. At the same time when I see her back in a month I would like to get a hearing test on her as well. I also asked her to use some saline spray during the day to help with nasal hygiene. Westley Bates M.D. SELVIN//law cc: Westley Bates MD - 05/11/2013 9:15 AM CDT This office note has been dictated by Westley Bates MD. documented in this encounter Plan of Treatment Not on filedocumented as of this encounter Visit Diagnoses Diagnosis Unspecified hearing loss - Primary Chronic rhinitis documented in this encounter Care Teams Naphthol Soaping Machine Operator Relationship Specialty Start Date End Date Timmy Perez MD PCP - Obstetrics/Gynecology 03/02/0807/[address] [address] Yung Madrigal MD PCP - Orthopaedics Orthopedics 08/26/12 RETIRED Winston Villatoro, AMELIE PCP - Ophthalmology Ophthalmology 02/11/[address] [place] [address] Apple Sykes MD PCP - General Family Practice 05/04/13 10/25/[address] [place] [address] Westley Bates MD PCP - ENT Otolaryngology 05/14/13 07/28/18 XXX RETIRED XXX [address] [facility] [address] [place], [place] [id number] documented as of this encounter
--- OUTSIDE RECORDS SUMMARY | 2022-08-29 12:11 | XMS_ITS | Encounter Summary ---
:1975 Author Organization [facility] Address [address] [place] [address] Care Team Providers Name Role Phone Timmy Perez MD Unavailable Yung Madrigal MD Unavailable Unavailable Frw, None Primary Care Provider Unavailable Winston Villatoro OD Unavailable Reason for Visit Reason Comments PT Daily Visit cervical Encounter Details Date Type Department Care Team Description 04/28/2013 [facility] Layne Shore, PT Flora ly Visit Health/Nurse System in [place] PT (cervical) Visit Physical Therapy [place], [place] [address] [address] [place], [place] [phone] [address] (Work) [phone] Social History Tobacco Use Types Packs/Day Years Used Date Smoking Tobacco: Never Smokeless Tobacco: Never Alcohol Use Standard Drinks/Week Comments Yes 0 (1 standard drink = 0.6 oz pure alcoho l) minimal Sex Assigned at Date Recorded Not on file documented as of this encounter Progress Notes Layne Shore, PT - 04/28/2013 1:45 PM CDT PHYSICAL THERAPY DAILY VISIT NOTES Visits Used / Authorized: 12/22 SUBJECTIVE: Since the last visit, the patient reports the traction continues to decrease her neck pain and headaches. She called her insurance to find out about coverage for a home traction unit. They told her she needs prior authorization. This therapist advised her I would check into that for her. Patient reports fair compliance with HEP / self care. She admits she didn't have a chance to do themmuch over the weekend. OBJECTIVE: RANGE OF MOTION: CROM: FF: decreased 50%, extension: decreased 60% TREATMENT TODAY CONSISTED OF: THERAPEUTIC PROCEDURES Therapeutic Exercise: 8 minutes Cervical / Thoracic: Stretching: Chin tuck seated, scapular retraction, active bilateral cervical rotation and flexion 10- 20 x 2-3 x day. Bilateral scap retraction and pull downs with green tband. 10-30 reps 1-2 x day. Supine protraction and ball/towel on wall circles for scapular stabilization 10- 30 x 1-2 x day. Added wall push ups 10-30 reps, 1-2 x day. Issued written instructions. Modalities: SCTX x 15' with 10# pull pt supine, using home Smith unit ASSESSMENT: Post treatment response: Subjective report of decreased neck soreness post treatment. Patient demonstrates a good understanding of HEP / Self Care. Progress summary: Patient requires skilled therapy to address the following impairments: Muscle flexibility limitations, Muscle strength / endurance limitations, Pain and Range of motion limitations PLAN: Continue with prescribed plan of care - progress as tolerated. Focus next session will be on: patient education, muscular flexibility, pain relief, range of motion and strength of involved joint(s) Total Visit Time: 30 minutes Total Time-Based Code Only Minutes: 8 minutes. Allergist/Immunologist Physician Present: SNOALI Therapist: Layne Shore MPT documented in this encounter Plan of Treatment Not on filedocumented as of this encounter Visit Diagnoses Not on filedocumented in this encounter Care Teams Size Tester Relationship Specialty Start Date End Date Timmy Perez MD PCP - Obstetrics/Gynecology 03/02/0807/[address] [address] Yung Madrigal MD PCP - Orthopaedics Orthopedics 08/26/12 RETIRED Frw, None PCP - General Family Practice 08/26/12 05/03/13 Winston Villatoro, OD PCP - Ophthalmology Ophthalmology 02/11/13 [facility] 701 [facility] [address] [place] [address] documented as of this encounter
--- OUTSIDE RECORDS SUMMARY | 2022-08-29 12:11 | XMS_ITS | Encounter Summary ---
:1975 Author Organization [place] Address [address] [place] [address] Care Team Providers Name Role Phone Timmy Perez MD Unavailable Yung Madrigal MD Unavailable Unavailable Frw, None Primary Care Provider Unavailable Winston Villatoro OD Unavailable Reason for Visit Reason Comments Eye Problem LEFT EYE Encounter Details Date Type Department Care Team Description 02/10/2013 Office Visit [facility] Shauna Winston Cornea l ulcer (Primary System in [place] Pascual M, OD Dx) Ophthalmology [facility] 701 [place], [place] [address] [address] [place], [place] [phone] Social History Tobacco Use Types Packs/Day Years Used Date Smoking Tobacco: Never Smokeless Tobacco: Never Alcohol Use Standard Drinks/Week Comments Yes 0 (1 standard drink = 0.6 oz pure alcoho l) Sex Assigned at Date Recorded Not on file documented as of this encounter Progress Notes Winston Villatoro Se, OD - 02/13/2013 11:52 AM CDT CLINIC ENCOUNTER The patient is in today after noting some eye pain and irritation over the last couple days in her left eye. She does not remember getting anything in her eye or having any other problems. Vision appears normal. SLIT LAMP EXAMINATION: Shows area of corneal infiltration just starting to stain on the surface temporally on the left eye approximately 2 mm in size. No cells or flare in the anterior chamber. Bulbar conjunctiva: Mild injection temporally area adjacent to corneal infiltrate. IMPRESSION: Corneal infiltrate starting to turn into corneal ulcer on the left eye temporally. PLAN: The patient will be started on Vigamox every hour today and then four times a day for the remainder of the week. She has minimal pain so no pain medication will be given. She should notice improvement and less pain by tonight and tomorrow. If no improvement or worsens she should return immediately. Otherwise reevaluate in three days. Winston Villatoro O.D. CHAPARRO//law cc: Winston Villatoro, OD - 02/10/2013 10:55 AM CDT Pain Questionnaire: Is your visit today because of Pain? NO C.C - LEFT EYE PROBLEM HPI - PATIENT STATES Saturday HER LEFT EYE BEGAN TO HURT. Saturday THE EYE BEGAN WATERING, ACHING, ANDHAS A RED AREA. DENIES BLURRED VISION AND MATTERING. SHE HAS TRIED ALLERGY EYE DROPS WHICH DID NOT HELP. TODAY THE EYE IS THE SAME Saturday. DOES NOT WEAR CONTACTS. Leticia Rogel, COA 02/10/2013 MEDICATIONS: Current Outpatient Prescriptions Medication Sig ??? traZODone (DESYREL) 100 MG tablet Take 1 tablet by mouth At Bedtime. ??? Beclomethasone Dipropionate (QVAR IN) Inhale into the lungs. ??? metroNIDAZOLE (METROGEL) 0.75 % gel Metrogel 1% not available ??? CELEXA 20 MG OR TABS ONE DAILY . FAMILY HISTORY: Family History Problem Relation Age of Onset ??? Diabetes No family hx of ??? Hypertension No family hx of ??? Stroke No family hx of ??? Breast CA No family hx of ??? Colon CA No family hx of ??? Alzheimers No family hx of ??? Cancer No family hx of ??? Heart No family hx of ??? Thyroid No family hx of reviewed 06/05/2006 Distance Right Eye Left Eye Both Eyes CC 25 25-1 20 SC Pinhole Correction Glasses ON EXAM: Mobility: FROM. Pupils: PERRLA, MG and no afferent defect. HPI ROS Physical Exam documented in this encounter Plan of Treatment Not on filedocumented as of this encounter Visit Diagnoses Diagnosis Corneal ulcer - Primary documented in this encounter Care Teams Chief Deputy Clerk/Bailiff Relationship Specialty Start Date End Date Timmy Perez MD PCP - Obstetrics/Gynecology 03/02/0807/[address] [address] Yung Madrigal MD PCP - Orthopaedics Orthopedics 08/26/12 RETIRED Frw, None PCP - General Family Practice 08/26/12 05/03/13 Winston Villatoro, OD PCP - Ophthalmology Ophthalmology 02/11/13 [facility] [place] [address] [facility] [address] [place] [address] documented as of this encounter
--- OUTSIDE RECORDS SUMMARY | 2022-08-29 12:11 | XMS_ITS | Encounter Summary ---
:1975 Author Organization [place] Address [address] [place] [address] Care Team Providers Name Role Phone Timmy Perez MD Unavailable Yung Madrigal MD Unavailable Unavailable Winston Villatoro OD Unavailable Apple Sykes MD Primary Care Provider Westley Bates MD Unavailable Reason for Referral - Closed Specialty Diagnoses / Procedures Referred By Contact Refer red To Contact Diagnoses Radiculopathy of leg Swelling of left knee joint Escobar Nesbitt MD [facility] [address] [place] [address] Referral ID Status Reason Start Date Expiration Date Visits Requ ested Visits Authorized [id number] Closed 07/06/2013 01/02/2014 1 1 Reason for Visit Reason Comments Musculoskeletal Problem Left knee swelling and numbn ess Encounter Details Date Type Department Care Team Description 07/06/2013 Office Visit [facility] Escobar Nesbitt Radiculop athy of leg (Primary Dx); System in [place] MD Rick Swelling of left knee joint Family Practice [facility] [place] [address] [place] [address] [place], [place] [address] [address] [place], [place] [phone] [id number] Social History Tobacco Use Types Packs/Day Years Used Date Smoking Tobacco: Never Smokeless Tobacco: Never Alcohol Use Standard Drinks/Week Comments Yes 0 (1 standard drink = 0.6 oz pure alcoho l) minimal Sex Assigned at Date Recorded Not on file documented as of this encounter Last Filed Vital Signs Vital Sign Reading Time Taken Comments Blood Pressure 122/80 07/06/2013 3:06 PM CDT Pulse 68 07/06/2013 3:06 PM CDT Temperature 36.3 ??C (97.3 ??F) 07/06/2013 3:06 PM CDT Respiratory Rate 18 07/06/2013 3:06 PM CDT Oxygen Saturation - - Inhaled Oxygen Concentration - - Weight 90.2 kg (198 lb 13.7 oz) 07/06/2013 3:06 PM CDT Height - - Body Mass Index 29.8 04/21/2013 11:07 AM CDT documented in this encounter Progress Notes Escobar Nesbitt MD - 07/06/2013 4:29 PM CDT SUBJECTIVE: Chief Complaint Patient presents with ??? Musculoskeletal Problem Left knee swelling and numbness Alcon Zamora who presents with a chief complaint of left knee swelling and numb feeling from her mid thigh to her mid calf on the left.. Symptoms began 1 day(s) ago, are moderate and sudden onset Context: Injury:No. She has no pain but it feels very stiff. She had a knee injury several months ago and her orthopedist recommended an MRI but that was never completed. She treated it initially with no therapy. This is not the first time this type of injury has occurred to this patient. Past Medical History Diagnosis Date ??? Excessive or frequent menstruation 01/31/06 Hospitalized ??? Hemorrhage complicating a procedure ??? Acute posthemorrhagic anemia ??? Cervicalgia ??? Pain in joint, pelvic region and thigh ??? Broncho-pulmonary dysplasia ??? 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 traMADol (ULTRAM) 50 MG tablet Take 1 tablet (50 mg) by mouth every 6 hours as needed for pain ??? citalopram (CELEXA) 20 MG tablet Take 20 mg by mouth daily ??? fluticasone (FLONASE) 50 MCG/ACT nasal spray [place] 2 sprays into both nostrils daily ??? fluticasone-salmeterol (ADVAIR) 250-50 MCG/DOSE diskus inhaler Inhale 1 puff into the lungs 2 times daily ??? traZODone (DESYREL) 50 MG tablet Take 2 tablets (100 mg) by mouth At Bedtime Take 2 to 2 1/ tablets at bedtime ??? moxifloxacin (VIGAMOX) 0.5 % ophthalmic solution Place 1 drop Into the left eye every 4 hours (while awake) for 7 days. ??? metroNIDAZOLE (METROGEL) 0.75 % gel Metrogel 1% not available History Substance Use Topics ??? Smoking status: Never Smoker ??? Smokeless tobacco: Never Used ??? Alcohol Use: Yes minimal ROS: CONSTITUTIONAL:NEGATIVE for fever, chills, change in weight INTEGUMENTARY/SKIN: NEGATIVE for worrisome rashes, moles or lesions EYES: NEGATIVE for vision changes or irritation ENT/MOUTH: NEGATIVE for ear, mouth and throat problems RESP:NEGATIVE for significant cough or SOB CV: NEGATIVE for chest pain, palpitations or peripheral edema GI: NEGATIVE for nausea, abdominal pain, heartburn, or change in bowel habits MUSCULOSKELETAL: as above NEURO: as above Review of systems negative except as stated above. EXAM: BP 122/80 Pulse 68 Temp 97.3 ??F (36.3 ??C) (Temporal) Resp 18 Wt 90.2 kg (198 lb 13.7 oz) LMP 01/07/2006 ? No M/S Exam:Left leg, knee and thigh swelling around knee joint. She has some subjective decreased sensation on the left lateral thigh and knee. Her straight leg raise test is negative. GENERAL APPEARANCE: healthy, alert and no distress EXTREMITIES: peripheral pulses normal SKIN: no suspicious lesions or rashes NEURO: Normal strength and tone, sensory exam grossly normal, mentation intact and speech normal NEURO: brisk symmetrical reflexes. X-RAY was not done. Alcon was seen today for musculoskeletal problem. Diagnoses and associated orders for this visit: Radiculopathy of leg - ORTHOPEDICS ADULT REFERRAL Swelling of left knee joint - ORTHOPEDICS ADULT REFERRAL - US Lower Extremity Venous Duplex Left; Future She underwent a doppler of the left leg veins and it was negative for DVT. I recommend rest ice and elevation and OTC NSAID such as Aleve or Advil as needed. She will be scheduled for follow up with Orthopedics. Follow up plan:Follow up as planned. documented in this encounter Nursing Notes 07/06/2013 3:05 PM CDT >> NIESHA ALMANZAR Mon Jul 06, 2013 3:10 PM documented in this encounter Plan of Treatment Not on filedocumented as of this encounter Visit Diagnoses Diagnosis Radiculopathy of leg - Primary Thoracic or lumbosacral neuritis or radi culitis, unspecified Swelling of left knee joint Effusion of lower leg joint documented in this encounter Care Teams Oncology Coordinator Relationship Specialty Start Date End Date Timmy Perez MD PCP - Obstetrics/Gynecology 03/02/0807/[address] [address] Yung Madrigal MD PCP - Orthopaedics Orthopedics 08/26/12 RETIRED Winston Villatoro, AMELIE PCP - Ophthalmology Ophthalmology 02/11/13 [facility] [address] [place] [address] Apple Syeks MD PCP - General Family Practice 05/04/13 10/25/[address] [place] [address] Westley Bates MD PCP - ENT Otolaryngology 05/14/13 07/28/18 XXX RETIRED XXX [address] [place] [address] documented as of this encounter
--- OUTSIDE RECORDS SUMMARY | 2022-08-29 12:11 | XMS_ITS | Encounter Summary ---
:1975 Author Organization [place] Address [address] [place] [address] Care Team Providers Name Role Phone Timmy Perez MD Unavailable Yung Madrigal MD Unavailable Unavailable Winston Villatoro OD Unavailable Apple Sykes MD Primary Care Provider Westley Bates MD Unavailable Encounter Details Date Type Department Care Team Description 07/17/2013 Allied Health/Nurse [facility] Yung Madrigal, Knee pain Visit System in [facility] RETIRED [address] [place] [address] Social History Tobacco Use Types Packs/Day Years Used Date Smoking Tobacco: Never Smokeless Tobacco: Never Alcohol Use Standard Drinks/Week Comments Yes 0 (1 standard drink = 0.6 oz pure alcoho l) minimal Sex Assigned at Date Recorded Not on file documented as of this encounter Plan of Treatment Pending Results Name Type Priority Associated Diagnoses Date/Ti me MRI LOWER EXTREMITY Imaging Routine Knee pain 07/17/20 13 12:27 PM CDT JOINT LT documented as of this encounter Procedures Procedure Name Priority Date/Time Associated Diagnosis Comme nts MR LOWER EXTREMITY Routine 07/17/2013 12:27 PM CDT Knee pain JOINT LEFT W/O CONTRAST documented in this encounter Visit Diagnoses Diagnosis Knee pain Pain in joint, lower leg documented in this encounter Care Teams Research Quality Assurance Specialist Relationship Specialty Start Date End Date Timmy Perez MD PCP - Obstetrics/Gynecology 03/02/0807/[address] [address] Yung Madrigal MD PCP - Orthopaedics Orthopedics 08/26/12 RETIRED Winston Villatoro OD PCP - Ophthalmology Ophthalmology 02/11/13 [facility] 701 [facility] [address] [place] [address] Apple Sykes MD PCP - General Family Practice 05/04/13 10/25/[address] [place] [address] [id number] Westley Bates MD PCP - ENT Otolaryngology 05/14/13 07/28/18 XXX RETIRED XXX 701 [facility] [address] [place] [address] documented as of this encounter
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
--- OUTSIDE RECORDS SUMMARY | 2022-08-29 12:11 | XMS_ITS | Encounter Summary ---
:1975 Author Organization [place] Address [address] [place] [address] Care Team Providers Name Role Phone Timmy Perez MD Unavailable Yung Madrigal MD Unavailable Unavailable Winston Villatoro OD Unavailable Apple Sykes MD Primary Care Provider Westley Bates MD Unavailable Reason for Visit Reason Onset Date Comments Pain 05/20/2013 Encounter Details Date Type Department Care Team Description 05/20/2013 Telephone [facility] in Yung Vaca MD Pain [facility] RETIRED [address] [place] [address] Social History Tobacco Use Types Packs/Day Years Used Date Smoking Tobacco: Never Smokeless Tobacco: Never Alcohol Use Standard Drinks/Week Comments Yes 0 (1 standard drink = 0.6 oz pure alcoho l) minimal Sex Assigned at Date Recorded Not on file documented as of this encounter Miscellaneous Notes Telephone Encounter - Joya Castelan - 05/20/2013 11:23 AM CDT appt being made for stand up cervical mri at [facility] Telephone Encounter - Yung Madrigal MD - 05/20/2013 11:01 AM CDT I have Rx'd for tramadol, for neck pain. We will obtain an upright MRI of the C- spine, and should see her after that to review. She has a DX. Of Maryann Unger Telephone Encounter - Gely Fowler - 05/20/2013 9:24 AM CDT Forward to Telephone Encounter - Delmis Obregon - 05/20/2013 9:19 AM CDT Phone: Works at the [employer] [id number] working today til 4:30 Patient called and would like to talk to you about her pain meds for her neck - they are not workingand would like to try something different. Thank you. Delmis documented in this encounter Plan of Treatment Not on filedocumented as of this encounter Visit Diagnoses Not on filedocumented in this encounter Care Teams Event Set Up Specialist Relationship Specialty Start Date End Date Timmy Perez MD PCP - Obstetrics/Gynecology 03/02/0807/[address] [address] Yung Madrigal MD PCP - Orthopaedics Orthopedics 08/26/12 RETIRED Winston Villatoro, AMELIE PCP - Ophthalmology Ophthalmology 02/11/13 [facility] [address] [facility] [address] [place] [address] Apple Sykes MD PCP - General Family Practice 05/04/13 10/25/[address] [place] [address] Westley Bates MD PCP - ENT Otolaryngology 05/14/13 07/28/18 XXX RETIRED XXX 701 [facility] [address] [place] [address] documented as of this encounter
--- OUTSIDE RECORDS SUMMARY | 2022-08-29 12:11 | XMS_ITS | Encounter Summary ---
:1975 Author Organization [place] Address [address] [place] [address] Care Team Providers Name Role Phone Timmy Perez MD Unavailable Yung Madrigal MD Unavailable Unavailable Winston Villatoro OD Unavailable Apple Sykes MD Primary Care Provider Westley Bates MD Unavailable Encounter Details Date Type Department Care Team Description 07/06/2013 [facility] in [facility] Escobar merritt MD [facility] 701 [facility] 701 [facility] [address] [place] [address] [place] [address] [phone] (Wo rk) Social History Tobacco Use Types [...] on filedocumented in this encounter Care Teams Plate Hanger Relationship Specialty Start Date End Date Timmy Perez MD PCP - Obstetrics/Gynecology 03/02/0807/[address] [address] Yung Madrigal MD PCP - Orthopaedics Orthopedics 08/26/12 RETIRED Winston Villatoro OD PCP - Ophthalmology Ophthalmology 02/11/13 [facility] [address] [address] Apple Sykes MD PCP - General Family Practice 05/04/13 10/25/[address] [place] [address] Westley Bates MD PCP - ENT Otolaryngology 05/14/13 07/28/18 XXX RETIRED XXX [address] [address] documented as of this encounter
--- OUTSIDE RECORDS SUMMARY | 2022-08-29 12:11 | XMS_ITS | Encounter Summary ---
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 She is wondering at the very least if she could have it rechecked in one month instead of waiting the 3 months. This request waswritten on pt results so encounter was closed. documented in this encounter Plan of Treatment Not on filedocumented as of this encounter Visit Diagnoses Not on filedocumented in this encounter Care Teams [facility] Nurse Practitioner Relationship Specialty Start Date End Date Timmy Perez MD PCP - Obstetrics/Gynecology 03/02/0807/[address] [address] Yung Madrigal MD PCP - Orthopaedics Orthopedics 08/26/12 RETIRED Frw, None PCP - General Family Practice 08/26/12 05/03/13 Winston Villatoro OD PCP - Ophthalmology Ophthalmology 02/11/13 [facility] 701 [facility] [address] [place] [address] documented as of this encounter
--- OUTSIDE RECORDS SUMMARY | 2022-08-29 12:11 | XMS_ITS | Encounter Summary ---
:1975 Author Organization [place] Address [address] [place] [address] Care Team Providers Name Role Phone Timmy Perez MD Unavailable Yung Madrigal MD Unavailable Unavailable Frw, None Primary Care Provider Unavailable Winston Villatoro OD Unavailable Apple Sykes MD Primary Care Provider Westley Bates MD Unavailable Encounter Details Date Type Department Care Team Description 11/21/2012 Medical Correspondence [facility] Frw, None After Visit Summary : System in [facility] Medical Records [address] [address] Social History Tobacco Use Types Packs/Day [...] on filedocumented in this encounter Care Teams Data Quality Consultant Relationship Specialty Start Date End Date Timmy Perez MD PCP - Obstetrics/Gynecology 03/02/0807/[address] [address] Yung Madrigal MD PCP - Orthopaedics Orthopedics 08/26/12 RETIRED Frw, None PCP - General Family Practice 08/26/12 05/03/13 Winston Villatoro OD PCP - Ophthalmology Ophthalmology 02/11/13 [facility] 701 [facility] [address] [place] [address] Apple Sykes MD PCP - General Family Practice 05/04/13 10/25/[address] [place] [address] Westley Bates MD PCP - ENT Otolaryngology 05/14/13 07/28/18 XXX RETIRED XXX 701 [facility] [address] [place] [address] documented as of this encounter
--- OUTSIDE RECORDS SUMMARY | 2022-08-29 12:11 | XMS_ITS | Encounter Summary ---
:1975 Author Organization [facility] Address [address] [place] [address] Care Team Providers Name Role Phone Timmy Perez MD Unavailable Yung Madrigal MD Unavailable Unavailable Frw, None Primary Care Provider Unavailable Winston Villatoro OD Unavailable Reason for Referral - Closed Specialty Diagnoses / Procedures Referred By Contact Refer red To Contact Diagnoses Neck pains [facility] [address] [phone] Referral ID Status Reason Start Date Expiration Date Visits Requ ested Visits Authorized [id number] Closed 04/10/2013 10/07/2013 1 1 Reason for Visit Reason Comments Neck Pain neck pain, with arm pain Encounter Details Date Type Department Care Team Description 04/10/2013 Office Visit [facility] Yung Madrigal ins (Primary Dx); System in [place] Shore MD Knee pain Orthopedics RETIRED [address] [phone] Social History Tobacco Use Types Packs/Day Years Used Date Smoking Tobacco: Never Smokeless Tobacco: Never Alcohol Use Standard Drinks/Week Comments Yes 0 (1 standard drink = 0.6 oz pure alcoho l) Sex Assigned at Date Recorded Not on file documented as of this encounter Progress Notes Yung Madrigal MD - 04/14/2013 11:47 AM CDT CLINIC ENCOUNTER Alcon continues to have chronic neck pain, today primarily on the posterior right side, radiating down into the upper trapezius and upper thoracic spine. She is very stiff today. Flexion is about 10 degrees. Extension is about 10. Turning left and right is about 30 degrees. She does not have radiation of pain into the arms past the shoulders nor does she complain of numbness, tingling or weakness. She thinks maybe this is partly due to a new job where she is spending more time at [employer] and computer than before, but can't think of any other injuries. Her strength and sensation are intact in the upper extremities. She is very stiff and so x-rays were taken of the cervical spine today and show a reversal of the normal cervical lordosis from C1 to C4 in lateral images. I don't see evidence of disc space narrowing or any bony pathology to speak of, but clearly she has a lot of muscle spasm for whatever the reason. The patient has also been concerned primarily with her left knee. About a month ago, she twisted and got up from a crouched or sitting position and felt some kind of grinding happen at the lateral side. 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 Fred's maneuver is very uncomfortable. She can flex to about 125. There is a negative drawer sign. Little or no patellofemoral crepitation. IMPRESSION: Possible torn left lateral meniscus. PLAN: For her cervical spine pain, I fitted Alcon today with a soft cervical collar and have sent her to Physical Therapy for gentle modalities, some gentle home exercise program, perhaps traction and so forth. For the knee, we are ordering an MRI scan, and I will meet with Alcon following that scan to review it and determine whether or not surgical intervention is indicated. 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 She's been seen by Cardiology at [place]. They felt that she did not have any cardiac abnormalities. Yung Madrigal M.D. ERIKA/vincenzo cc: documented in this encounter Nursing Notes 04/10/2013 1:00 PM CDT >> Breana Cooley RN SatApr 10, 2013 1:05 PM Neck pain with radicular pain into both arms. Right is worse than left. This has been present for sometime. Happened when she rolled over in bed. documented in this encounter Plan of Treatment Not on filedocumented as of this encounter Procedures Procedure Name Priority Date/Time Associated Diagnosis Comme nts XR CERVICAL SPINE Routine 04/10/2013 1:32 PM Neck pains Resu lts for this 2/3 VIEWS CDT procedure are i n the results section. documented in this encounter Results XR Cervical Spine 2/3 Views (04/10/2013 1:32 PM CDT) Anatomical Region Laterality Modality Spine Other Specimen (Source) Anatomical Collection Method Collection Time Re ceived Time Location / / Volume Laterality 04/10/2013 1:32 PM CDT Impressions 04/10/2013 2:26 PM CDT IMPRESSION: There is a mild lordotic curvature of the upper cervical spine. No radiographic evidence of acute fracture. The prevertebral soft tissues are unremarkable. IRMA HOWELL MD Narrative 04/10/2013 2:26 PM CDT CERVICAL SPINE 2-3 VW* 04/10/2013 1:32 PM HISTORY: Pain. COMPARISON: August 16, 2011. Procedure Note Iram Howell MD - 04/10/2013 CERVICAL SPINE 2-3 VW* 04/10/2013 1:32 PM HISTORY: Pain. COMPARISON: August 16, 2011. IMPRESSION IMPRESSION: There is a mild lordotic cur vature of the upper cervical spine. No radiographic evidence of acute fracture. The prevertebral soft tissues are unremarkable. IRMA HOWELL MD Yung Madrigal MD IMG DIAGNOSTIC IMAGING ORDER NASRIN documented in this encounter Visit Diagnoses Diagnosis Neck pains - Primary Cervicalgia Knee pain Pain in joint, lower leg documented in this encounter Care Teams Ceramic Capacitor Processor Relationship Specialty Start Date End Date Timmy Perez MD PCP - Obstetrics/Gynecology 03/02/0807/[address] [place] [address] Yung Madrigal MD PCP - Orthopaedics Orthopedics 08/26/12 RETIRED Frw, None PCP - General Family Practice 08/26/12 05/03/13 Winston Villatoro OD PCP - Ophthalmology Ophthalmology 02/11/[address] [place] [address] documented as of this encounter
--- OUTSIDE RECORDS SUMMARY | 2022-08-29 12:11 | XMS_ITS | Encounter Summary ---
:1975 Author Organization [facility] Address [address] [place] [address] Care Team Providers Name Role Phone Timmy Perez MD Unavailable Yung Madrigal MD Unavailable Unavailable Winston Villatoro OD Unavailable Apple Sykes MD Primary Care Provider Westley Bates MD Unavailable Encounter Details Date Type Department Care Team Description 07/17/2013 [facility] in Yung Vaca MD [facility] RETIRED [address] [place] [address] Social History Tobacco Use Types Packs/Day [...] on filedocumented in this encounter Care Teams Supervisor Orchard Relationship Specialty Start Date End Date Timmy Perez MD PCP - Obstetrics/Gynecology 03/02/0807/[address] [address] Yung Madrigal MD PCP - Orthopaedics Orthopedics 08/26/12 RETIRED Winston Villatoro, AMELIE PCP - Ophthalmology Ophthalmology 02/11/13 [facility] [address] [place] [address] Apple Sykes MD PCP - General Family Practice 05/04/13 10/25/[address] [place] [address] [id number] Westley Bates MD PCP - ENT Otolaryngology 05/14/13 07/28/18 XXX RETIRED XXX 701 [facility] [address] [place] [address] documented as of this encounter
--- OUTSIDE RECORDS SUMMARY | 2022-08-29 12:11 | XMS_ITS | Encounter Summary ---
:1975 Author Organization [facility] Address [address] [place] [address] Care Team Providers Name Role Phone Timmy Perez MD Unavailable Yung Madrigal MD Unavailable Unavailable Winston Villatoro OD Unavailable Apple Sykes MD Primary Care Provider Westley Bates MD Unavailable Encounter Details Date Type Department Care Team Description 07/17/2013 Results Only [facility] in Yung Vaca MD [facility] RETIRED [address] [place] [address] Social History Tobacco Use Types Packs/Day [...] Associated Diagnosis Comme nts MR LOWER EXTREMITY 07/17/2013 1:13 PM Res ults for this JOINT LEFT W/O CDT procedure are in CONTRAST the results section. documented in this encounter Results MR Low Ext Joint Lt w/o Contrast (07/17/2013 1:13 PM CDT) Anatomical Region Laterality Modality Lower Extremity, SUBRAD MR MSK, UMP MR MSK Other Specimen (Source) Anatomical Collection Method Collection Time Re ceived Time Location / / Volume Laterality 07/17/2013 1:13 PM CDT Impressions 07/17/2013 3:17 PM CDT IMPRESSION: ?? 1. Borderline or partial discoid lateral meniscus. Possible degenerative fraying at the tip of the b antoinette of the lateral meniscus. No other evidence of meniscal tear. 2. Small joint effusion. LISETH MARRERO MD Narrative 07/17/2013 3:17 PM CDT MR LEFT KNEE WITHOUT CONTRAST ?? 3 1:13 PM HISTORY: ??Looking for lateral meniscus tear. TECHNIQUE: ??Sagittal proton density and T2, coronal T1, and coronal and transverse fat suppressed T2 weighte d images. FINDINGS: Menisci: ??There appears to be a partial ly discoid lateral meniscus. No meniscal tear or displaced meniscal flap is demonstrated. The medial meniscus appears within normal limits. Cruciate ligaments: ??The anterior and p osterior cruciate ligaments appear within normal limits. Collateral supporting structures: ??The tibial and fibular collateral ligaments, biceps femoris and popliteal tendons, and iliotibial tract appear intact. Osseous structures and cartilaginous shirin faces: ??Articular cartilage surfaces in the medial, lateral, and pat ellofemoral compartments appear within normal limits. Marrow sign al is within normal limits. Additional findings: ??There is a small joint effusion. The quadriceps and infrapatellar tendons appear within normal limits. Procedure Note Joleen Marrero MD - 07/17/2013Formatt ing of this note might be different from the original. MR LEFT KNEE WITHOUT CONTRAST 07/17/2013 1:13 PM HISTORY: Looking for lateral meniscus te ar. TECHNIQUE: Sagittal proton density and T 2, coronal T1, and coronal and transverse fat suppressed T2 weighte d images. FINDINGS: Menisci: There appears to be a partially discoid lateral meniscus. No meniscal tear or displaced meniscal flap is demonstrated. The medial meniscus appears within normal limits. Cruciate ligaments: The anterior and pos terior cruciate ligaments appear within normal limits. Collateral supporting structures: The ti bial and fibular collateral ligaments, biceps femoris and popliteal tendons, and iliotibial tract appear intact. Osseous structures and cartilaginous shirin faces: Articular cartilage surfaces in the medial, lateral, and pat ellofemoral compartments appear within normal limits. Marrow sign al is within normal limits. Additional findings: There is a small elisa int effusion. The quadriceps and infrapatellar tendons appear within normal limits. IMPRESSION IMPRESSION: 1. Borderline or partial discoid lateral meniscus. Possible degenerative fraying at the tip of the b antoinette of the lateral meniscus. No other evidence of meniscal tear. 2. Small joint effusion. LISETH MARRERO MD Yung Madrigal MD IMG MRI ORDERABLES documented in this encounter Visit Diagnoses Not on filedocumented in this encounter Care Teams Alpine Patroller Relationship Specialty Start Date End Date Timmy Perez MD PCP - Obstetrics/Gynecology 03/02/0807/[address] [address] Yung Madrigal MD PCP - Orthopaedics Orthopedics 08/26/12 RETIRED Winston Villatoro OD PCP - Ophthalmology Ophthalmology 02/11/13 [facility] [address] [facility] [address] [place] [address] Apple Sykes MD PCP - General Family Practice 05/04/13 10/25/[address] [place] [id number] Westley Bates MD PCP - ENT Otolaryngology 05/14/13 07/28/18 XXX RETIRED XXX [address] [facility] [address] [place] [address] documented as of this encounter
--- OUTSIDE RECORDS SUMMARY | 2022-08-29 12:11 | XMS_ITS | Encounter Summary ---
:1975 Author Organization [facility] Address [address] [place] [address] Care Team Providers Name Role Phone Timmy Perez MD Unavailable Yung Madrigal MD Unavailable Unavailable Frw, None Primary Care Provider Unavailable Winston Villatoro OD Unavailable Reason for Visit Reason Comments PT Daily Visit cervical Encounter Details Date Type Department Care Team Description 05/01/2013 [facility] Layne Shore, PT Flora [place] Visit Health/Nurse System in [place] PT (cervical) Visit Physical Therapy [place], [place] [address] [facility] [address] [place], [place] [phone] (Work) [phone] Social History Tobacco Use Types Packs/Day Years Used Date Smoking Tobacco: Never Smokeless Tobacco: Never Alcohol Use Standard Drinks/Week Comments Yes 0 (1 standard drink = 0.6 oz pure alcoho l) minimal Sex Assigned at Date Recorded Not on file documented as of this encounter Progress Notes Layne Shore, PT - 05/01/2013 11:55 AM CDT PHYSICAL THERAPY DAILY VISIT NOTES Visits Used / Authorized: 01/21 SUBJECTIVE: Since the last visit, the patient reports she finds the traction very helpful in managing her headaches and pain and is interested in having a unit at home. Patient reports good compliance with HEP / self care. OBJECTIVE: RANGE OF MOTION: CROM: FF: decreased 50%, extension: decreased 60% TREATMENT TODAY CONSISTED OF: THERAPEUTIC PROCEDURES Therapeutic Exercise: 2 minutes verbal review: Cervical / Thoracic: Stretching: Chin tuck seated, scapular retraction, active bilateral cervical rotation and flexion 10-20 x 2-3 x day. Bilateral scap retraction and pull downs with green tband. 10-30 reps 1-2 x day. Supine protraction and ball/towel on wall circles for scapular stabilization 10- 30 x 1-2 x day. Wall push ups 10-30 reps, 1-2 x day. Modalities: SCTX x 15' with 10# pull pt supine, using home Smith unit Self care x 8': pt instructed in indications, contraindications of home traction. Also instructed intreatment duration (15-20 minutes, 1-2 day as needed for pain). Pt issued home traction unit. ASSESSMENT: Post treatment response: Subjective report of decreased neck soreness post treatment. Pt had good understanding of traction unit. Patient demonstrates a good understanding of HEP / Self Care. Progress summary: Patient met goals. PLAN: pt discharged with HEP. Total Visit Time: 30 minutes Total Time-Based Code Only Minutes: 10 minutes. Urgent Care Technician Present: SONALI Therapist: Layne Shore MPT documented in this encounter Plan of Treatment Not on filedocumented as of this encounter Visit Diagnoses Not on filedocumented in this encounter Care Teams Explosive Operator Relationship Specialty Start Date End Date Timmy Perez MD PCP - Obstetrics/Gynecology 03/02/0807/[address] [address] Yung Madrigal MD PCP - Orthopaedics Orthopedics 08/26/12 RETIRED Frw, None PCP - General Family Practice 08/26/12 05/03/13 Winston Villatoro OD PCP - Ophthalmology Ophthalmology 02/11/13 [facility] [address] [facility] [address] [place] [address] documented as of this encounter
--- OUTSIDE RECORDS SUMMARY | 2022-08-29 12:11 | XMS_ITS | Encounter Summary ---
:1975 Author Organization [facility] Address [address] [place] [address] Care Team Providers Name Role Phone Timmy Perez MD Unavailable Yung Madrigal MD Unavailable Unavailable Frw, None Primary Care Provider Unavailable Winston Villatoro OD Unavailable Reason for Visit Reason Comments PT Daily Visit cervical Encounter Details Date Type Department Care Team Description 04/21/2013 [facility] Layne Shore, PT Fl[place] Visit Health/Nurse System in [place] PT (cervical) Visit Physical Therapy [place], [place] [address] [place] [address] [place], [place] [phone] (Work) [phone] Social History Tobacco Use Types Packs/Day Years Used Date Smoking Tobacco: Never Smokeless Tobacco: Never Alcohol Use Standard Drinks/Week Comments Yes 0 (1 standard drink = 0.6 oz pure alcoho l) minimal Sex Assigned at Date Recorded Not on file documented as of this encounter Progress Notes Layne Shore, PT - 04/21/2013 1:51 PM CDT PHYSICAL THERAPY DAILY VISIT NOTES Visits Used / Authorized: 10/24 SUBJECTIVE: Since the last visit, the patient reports a decrease in symptoms. She states she didn't have any headaches over the weekend and her pain was noticeably decreased. She is interested in a home traction unit and will contact her insurance co re: cost. Patient reports good compliance with HEP / self care. OBJECTIVE: RANGE OF MOTION: CROM: FF: decreased 50%, extension: decreased 60% TREATMENT TODAY CONSISTED OF: THERAPEUTIC PROCEDURES Therapeutic Exercise: 8 minutes Cervical / Thoracic: Stretching: Chin tuck seated, scapular retraction, active bilateral cervical rotation and flexion 10- 20 x 2-3 x day. Added bilateral scap retraction and pull downs with green tband. 10-30 reps 1-2 x day. Pt issued written instructions and tband. Modalities: SCTX x 15' with 10# pull [...] Total Time-Based Code Only Minutes: 8 minutes. Lead Neurodiagnostic Technologist Present: SONALI Therapist: Layne Shore MPT documented in this encounter Plan of Treatment Not on filedocumented as of this encounter Visit Diagnoses Not on filedocumented in this encounter Care Teams Driller Hand Relationship Specialty Start Date End Date Timmy Perez MD PCP - Obstetrics/Gynecology 03/02/0807/[address] [address] Yung Madrigal MD PCP - Orthopaedics Orthopedics 08/26/12 RETIRED Frw, None PCP - General Family Practice 08/26/12 05/03/13 Winston Villatoro OD PCP - Ophthalmology Ophthalmology 02/11/13 [facility] [place] [address] [place] [address] documented as of this encounter
--- OUTSIDE RECORDS SUMMARY | 2022-08-29 12:11 | XMS_ITS | Encounter Summary ---
:1975 Author Organization [facility] Address [address] [place] [address] Care Team Providers Name Role Phone Timmy Perez MD Unavailable Yung Madrigal MD Unavailable Unavailable Frw, None Primary Care Provider Unavailable Winston Villatoro OD Unavailable Apple Sykes MD Primary Care Provider Reason for Visit Reason Comments PT Discharge Summary cervical Encounter Details Date Type Department Care Team Description 05/01/2013 [facility] Layne Shore, PT Dis charge Summary Health/Nurse System in [place] PT (cervical) Visit Physical Therapy [place], [place] [address] [address] [place], [place] [phone] (Work) [phone] Social History Tobacco Use Types Packs/Day Years Used Date Smoking Tobacco: Never Smokeless Tobacco: Never Alcohol Use Standard Drinks/Week Comments Yes 0 (1 standard drink = 0.6 oz pure alcoho l) minimal Sex Assigned at Date Recorded Not on file documented as of this encounter Progress Notes Layne Shore, PT - 05/13/2013 9:19 AM CDT SUMMATION OF EPISODE OF CARE for OUTPATIENT PHYSICAL THERAPY Patient Name: Alcon Zamora : 1975 HICN: [id number] Dates of Service: 04/17/13-05/01/13 Number of Visits: 5 Functional Questionnaires and Outcomes Measures - Physical/functional status at last visit / patientcontact: Pre: Cervical Spine - Neck Disability Index: 42%. Severe Perceived Disability (40% - 60%) Post: Cervical Spine - Neck Disability Index: 12%. Minimal Perceived Disability (0% to 20%) Claims Based Outcome Reporting NA Objective report of the patient's subjective statements: Patient reports she finds the traction very helpful in managing her headaches and pain and is interested in having a unit at home. SKILLED INTERVENTIONS AND GOAL STATUS Independent and safe with home exercise / self care program in 4 week(s). MET Good working knowledge of safe lifting and body mechanics in 2-3 week(s). MET Good working knowledge of posture principles / joint protection in 2-3 week(s). MET Work tasks (keying/mousing) 50% less pain or symptoms in 4 week(s). MET WF CROM for safe driving and ADL's in 4 weeks. MET CRITERIA FOR DISCHARGE Patient has met established goals and expected outcomes as stated in the plan of care and based on reassessed needs. Patient, family, or caregiver has demonstrated necessary knowledge and ability to carry out a self care / home management program independently and no further skilled intervention is needed. DISCHARGE PLAN Home exercise and self care program: stretches, strengthening. Equipment provided: home cervical traction unit. Therapist: Layne Shore MPT Date: 05/13/2013 documented in this encounter Plan of Treatment Not on filedocumented as of this encounter Visit Diagnoses Not on filedocumented in this encounter Care Teams Health Information Clerk Relationship Specialty Start Date End Date Timmy Perez MD PCP - Obstetrics/Gynecology 03/02/0807/[address] [address] Yung Madrigal MD PCP - Orthopaedics Orthopedics 08/26/12 RETIRED Frw, None PCP - General Family Practice 08/26/12 05/03/13 Winston Villatoro OD PCP - Ophthalmology Ophthalmology 02/11/[address] [place] [address] Apple Sykes MD PCP - General Family Practice 05/04/[address] [place] [address] documented as of this encounter
--- OUTSIDE RECORDS SUMMARY | 2022-08-29 12:11 | XMS_ITS | Encounter Summary ---
:1975 Author Organization [facility] Address [address] [place] [address] Care Team Providers Name Role Phone Timmy Perez MD Unavailable Yung Madrigal MD Unavailable Unavailable Frw, None Primary Care Provider Unavailable Winston Villatoro OD Unavailable Reason for Visit Reason Comments PT Daily Visit cervical Encounter Details Date Type Department Care Team Description 04/24/2013 [facility] Layne Shore, PT Fl[place] Visit Health/Nurse System in [place] PT (cervical) Visit Physical Therapy [place], [place] [address] [place] [address] [place], [place] [phone] (Work) [phone] Social History Tobacco Use Types Packs/Day Years Used Date Smoking Tobacco: Never Smokeless Tobacco: Never Alcohol Use Standard Drinks/Week Comments Yes 0 (1 standard drink = 0.6 oz pure alcoho l) minimal Sex Assigned at Date Recorded Not on file documented as of this encounter Progress Notes Layne Shore, PT - 04/24/2013 12:20 PM CDT PHYSICAL THERAPY DAILY VISIT NOTES Visits Used / Authorized: 11/21 SUBJECTIVE: Since the last visit, the patient reports the traction continues to decrease her neck pain and headaches. Her exercises are going well. Patient reports good compliance with HEP / [...] reps 1-2 x day. Pt issued written instructions. Added supine protraction and ball/towel on wall circles for scapular stabilization 10-30 x 1-2 x day. Modalities: SCTX x 15' [...] Total Time-Based Code Only Minutes: 8 minutes. Aviation Survival Technician Present: SONALI Therapist: Layne Shore MPT documented in this encounter Plan of Treatment Not on filedocumented as of this encounter Visit Diagnoses Not on filedocumented in this encounter Care Teams Security Flex Utility Officer Relationship Specialty Start Date End Date Timmy Perez MD PCP - Obstetrics/Gynecology 03/02/0807/[address] [address] Yung Madrigal MD PCP - Orthopaedics Orthopedics 08/26/12 RETIRED Frw, None PCP - General Family Practice 08/26/12 05/03/13 Winston Villatoro OD PCP - Ophthalmology Ophthalmology 02/11/[address] [place] [address] documented as of this encounter
--- OUTSIDE RECORDS SUMMARY | 2022-08-29 12:11 | XMS_ITS | Encounter Summary ---
:1975 Author Organization [place] Address [address] [place] [address] Care Team Providers Name Role Phone Timmy Perez MD Unavailable Yung Madrigal MD Unavailable Unavailable Frw, None Primary Care Provider Unavailable Winston Villatoro OD Unavailable Reason for Visit Reason Onset Date Comments Triage 02/10/2013 eye problem. Encounter Details Date Type Department Care Team Description 02/10/[address] [facility] Isela Raman recreational leader (eye problem. ) System in [address] [place] [address] [place] [address] Social History Tobacco Use Types Packs/Day Years Used Date Smoking Tobacco: Never Smokeless Tobacco: Never Alcohol Use Standard Drinks/Week Comments Yes 0 (1 standard drink = 0.6 oz pure alcoho l) Sex Assigned at Date Recorded Not on file documented as of this encounter Miscellaneous Notes Telephone Encounter - Jacque Raman RN - 02/10/2013 8:37 AM CDT Eye pain L eye with watering reported by this pt . Started on Saturday. NO known injury to eye. No vision changes . Eye is red /blood shot but no blood in colored part of eye. Pt has tried allergy eye drops with no relief. Recommended an appt with provider. And appt scheduled for this AM. Pt instructed on emergent ss per Eye problem protocol Telephone Triage protocols for nurses by Martha Jack 4th addition pg [phone]. And pt instructed to call back to clinic if these symptoms present because then we would work pt in sooner. Pt agreed to this plan of care. documented in this encounter Plan of Treatment Not on filedocumented as of this encounter Visit Diagnoses Not on filedocumented in this encounter Care Teams Conference Planning Manager Relationship Specialty Start Date End Date Timmy Perez MD PCP - Obstetrics/Gynecology 03/02/0807/[address] [address] Yung Madrigal MD PCP - Orthopaedics Orthopedics 08/26/12 RETIRED Frw, None PCP - General Family Practice 08/26/12 05/03/13 Winston Villatoro OD PCP - Ophthalmology Ophthalmology 02/11/13 [facility] 701 [facility] [address] [place] [address] documented as of this encounter
--- OUTSIDE RECORDS SUMMARY | 2022-08-29 12:11 | XMS_ITS | Encounter Summary ---
:1975 Author Organization [place] Address [facility] [place] [address] Care Team Providers Name Role Phone Timmy Perez MD Unavailable Yung Madrigal MD Unavailable Unavailable Frw, None Primary Care Provider Unavailable Winston Villatoro OD Unavailable Reason for Visit Reason Comments Knee Pain Left knee pain, twisted knee when on 03/08/2013, becoming more bothersome. Encounter Details Date Type Department Care Team Description 03/11/2013 Office Visit [facility] Mel Tomas Left knee pain System in [place] HAYDEN Coffman (Primary Dx) Internal Medicine [address] [place] [facility] [address] [place], [place] [phone] (Wo rk) Social History Tobacco Use Types Packs/Day Years Used Date Smoking Tobacco: Never Smokeless Tobacco: Never Alcohol Use Standard Drinks/Week Comments Yes 0 (1 standard drink = 0.6 oz pure alcoho l) Sex Assigned at Date Recorded Not on file documented as of this encounter Last Filed Vital Signs Vital Sign Reading Time Taken Comments Blood Pressure 112/76 03/11/2013 3:47 PM CDT Pulse 76 03/11/2013 3:47 PM CDT Temperature 36.7 ??C (98 ??F) 03/11/2013 3:47 PM CDT Respiratory Rate - - Oxygen Saturation - - Inhaled Oxygen Concentration - - Weight 86.2 kg (190 lb 1.6 oz) 03/11/2013 3:47 PM CDT Height - - Body Mass Index 28.48 11/20/2012 10:25 AM [employer] documented in this encounter Patient Instructions Patient InstructionsTackMel barrow PA-C - 03/11/2013 4:47 PM CDT IBUPROFEN 600-800 MG 3 TIMES PER DAY SCHEDULED WITH FOOD FOR 1-2 WEEKS REGARDLESS IF IN PAIN OR NOT,TO KEEP INFLAMMATION DOWN AND PAIN RELIEF. TYLENOL IN BETWEEN IBUPROFEN FOR PAIN RELIEF WELL ICE, COMPRESSION WITH COMPRESSION SLEEVE AVOID EXCESSIVE BENDING, TWISTING OF THE KNEE UNTIL PAIN SUBSIDES FOLLOW UP IF NO IMPROVEMENT OVER THE NEXT FEW WEEKS OR WORSENING-KNEE GIVES OUT,LOCKING UP OR NOT ABLE TO BEAR WEIGHT DR. JURADO ( FEMALE), DR. JOSHI (FEMALE), DR JAMISON ( MALE) ( MALE) documented in this encounter Progress Notes Mel Tomas PA-C - 03/11/2013 3:51 PM CDT Alcon Zamora is a 37 year old female presenting for Chief Complaint Patient presents with ??? Knee Pain Left knee pain, twisted knee when on 03/08/2013, becoming more bothersome. S: Alcon is a 37 year old female complaining of moderate left knee pain for 4 days. Pain described as sharp with movement, constant ache all the time. Pain confined to lateral with able to bear weight.Denies giving out, popping and locking, significant swelling. Mechanism of injury : twisting of the knee to the left when getting out of the bed. Immediately after this she felt grinding sensation and pain. Patient denies history of prior problems with this knee. She has been icing and ibuprofen 600 few times per day and rest with no relief. Current Outpatient Prescriptions Medication Sig ??? traZODone (DESYREL) 100 MG tablet Take 1 tablet by mouth At Bedtime. ??? metroNIDAZOLE (METROGEL) 0.75 % gel Metrogel 1% not available ??? CELEXA 20 MG OR TABS ONE DAILY ??? moxifloxacin (VIGAMOX) 0.5 % ophthalmic solution Place 1 drop Into the left eye every 4 hours (while awake) for 7 days. Past Medical History Diagnosis Date ??? Excessive or frequent menstruation 01/31/06 Hospitalized ??? Hemorrhage complicating a procedure ??? Acute posthemorrhagic anemia ??? Cervicalgia ??? Pain in joint, pelvic region and thigh Allergies Allergen Reactions ??? Erythromycin GI Disturbance Objective: Blood pressure 112/76, pulse 76, temperature 98 ??F (36.7 ??C), temperature source Temporal, weight 86.229 kg (190 lb 1.6 oz), last menstrual period 01/07/2006. Constitutional: healthy, alert and no distress JOINT/EXTREMITIES: extremities normal- no gross deformities noted, gait normal and normal muscle tone and strength. Normal ROM of the left knee without pain. Some mild clicking with movement. Lateral joint line tenderness with mild inflammation. Anterior drawer and valgus/varus stress normal. Results for orders placed in visit on 03/11/13 XR KNEE LEFT 1/2 VIEWS Narrative: KNEE 1 TO 2 VIEWS LEFT* 03/11/2013 4:15 PM HISTORY: Pain in joint, lower leg,Not ,Pertinent Clinical Information: twisting injury to left knee with continued pain,Knee Views: Routine (AP and Lateral), COMPARISON: None. FINDINGS: No acute fracture, degenerative change or soft tissue abnormality. Impression: IMPRESSION: Negative. KAYLIN DE LEON MD Assessment/Plan: 1. Left knee pain (719.46) X-RAY LT KNEE 1 OR 2 VIEW * (Common) Xray negative No signs of mechanical symptoms Start with conservative treatment-rest, ice, elevation and compression NSAIDS scheduled-ibuprofen 600-800 mg TID scheduled for 1-2 weeks for pain and inflammation F/U:prn if symptoms do not improve over the next 2-3 weeks or worsen-locking of knee, knee giving out or trouble bearing weight, increased swelling or effusion- and will have patient follow up with orthopedics documented in this encounter Plan of Treatment Not on filedocumented as of this encounter Procedures Procedure Name Priority Date/Time Associated Diagnosis Comme nts XR KNEE LEFT 1/2 Routine 03/11/2013 4:15 PM Left knee pain Res ults for this VIEWS CDT procedure are i n the results section. documented in this encounter Results X-RAY LT KNEE 1 OR 2 VIEW * (Common) (03/11/2013 4:15 PM CDT) Anatomical Region Laterality Modality Thigh, Knee, Leg Left Other Specimen (Source) Anatomical Collection Method Collection Time Re ceived Time Location / / Volume Laterality 03/11/2013 4:15 PM CDT Impressions 03/12/2013 7:35 AM CDT IMPRESSION: ??Negative. KAYLIN DE LEON MD Narrative 03/12/2013 7:35 AM CDT KNEE 1 TO 2 VIEWS LEFT* ??03/11/2013 4:15 PM HISTORY: ??Pain in joint, lower leg,Not ,Pertinent Clinical Information: twisting injury to left kne e with continued pain,Knee Views: Routine (AP and Lateral), COMPARISON: None. FINDINGS: No acute fracture, degenerativ e change or soft tissue abnormality. Procedure Note Kaylin De Leon MD - 03/12/2013Format ting of this note might be different from the original. KNEE 1 TO 2 VIEWS LEFT* 03/11/2013 4:15 P M HISTORY: Pain in joint, lower leg,Not Pr egnant,Pertinent Clinical Information: twisting injury to left kne e with continued pain,Knee Views: Routine (AP and Lateral), COMPARISON: None. FINDINGS: No acute fracture, degenerativ e change or soft tissue abnormality. IMPRESSION IMPRESSION: Negative. KAYLIN DE LEON MD Mel Meghna BALES-Ad[facility] IMG DIAGNOSTIC IMAGING ORD ERABLES documented in this encounter Visit Diagnoses Diagnosis Left knee pain - Primary Pain in joint, lower leg documented in this encounter Care Teams Vending Manager Relationship Specialty Start Date End Date Timmy Perez MD PCP - Obstetrics/Gynecology 03/02/0807/[address] [address] Yung Madrigal MD PCP - Orthopaedics Orthopedics 08/26/12 RETIRED Frw, None PCP - General Family Practice 08/26/12 05/03/13 Winston Villatoro OD PCP - Ophthalmology Ophthalmology 02/11/[address] [place] [address] documented as of this encounter
--- OUTSIDE RECORDS SUMMARY | 2022-08-29 12:11 | XMS_ITS | Encounter Summary ---
:1975 Author Organization [place] Address [address] [place] [address] Care Team Providers Name Role Phone Timmy Perez MD Unavailable Yung Madrigal MD Unavailable Unavailable Frw, None Primary Care Provider Unavailable Winston Villatoro OD Unavailable Reason for Visit Reason Comments RECHECK LEFT EYE Encounter Details Date Type Department Care Team Description 02/13/2013 Office Visit [facility] Shauna Winston Cornea l ulcer (Primary System in [place] Pasc[place] M, OD Dx) Ophthalmology [facility] [address] [facility] 701 [place], [place] [address] [address] [place], [place] [phone] Social History Tobacco Use Types Packs/Day Years Used Date Smoking Tobacco: Never Smokeless Tobacco: Never Alcohol Use Standard Drinks/Week Comments Yes 0 (1 standard drink = 0.6 oz pure alcoho l) Sex Assigned at Date Recorded Not on file documented as of this encounter Progress Notes Shauna Winston Se, OD - 02/18/2013 4:21 PM CDT CLINIC ENCOUNTER The patient is in for recheck today in the left eye because of corneal infiltrate and ulcer temporally. She reports comfort and vision have improved and is still taking Vigamox drops 4 times a day. SLIT LAMP EXAMINATION: Shows cornea to have no staining. Area of infiltrate has gotten smaller in size and more defined in the temporal aspect of the cornea near limbus. No cells or flare in the anterior chamber. Bulbar and palpebral conjunctivae clear. IMPRESSION: Corneal infiltrate and ulcer, improving on Vigamox. PLAN: Continue with Vigamox as prescribed. If eye does not feel completely back to normal or becomes red or inflamed she should return. Starr Anguiano cc: Winston Villatoro, OD - 02/13/2013 2:03 PM CDT Pain Questionnaire: Is your visit today because of Pain? NO C.C - RECHECK LEFT EYE HPI - LEFT EYE FEELS BETTER. NO PAIN OR BLURRED VISION. PATIENT TAKING VIGAMOX 1 DROP EVERY 4 HOURS WHILE AWAKE IN LEFT EYE Leticia Garcíaaileenabilio 02/13/2013 MEDICATIONS: Current Outpatient Prescriptions Medication Sig ??? moxifloxacin (VIGAMOX) 0.5 % ophthalmic solution Place 1 drop Into the left eye every 4 hours (while awake) for 7 days. ??? traZODone (DESYREL) 100 MG tablet Take [...] Right Eye Left Eye Both Eyes CC 25-1 25 20 SC Pinhole Correction Glasses ON EXAM: HPI ROS Physical Exam documented in this encounter Plan of Treatment Not on filedocumented as of this encounter Visit Diagnoses Diagnosis Corneal ulcer - Primary documented in this encounter Care Teams Patrol Driver Relationship Specialty Start Date End Date Timmy Perez MD PCP - Obstetrics/Gynecology 03/02/0807/[address] [address] Yung Madrigal MD PCP - Orthopaedics Orthopedics 08/26/12 RETIRED Frw, None PCP - General Family Practice 08/26/12 05/03/13 Winston Villatoro, OD PCP - Ophthalmology Ophthalmology 02/11/13 [facility] [address] [place] [address] [address] [place] [address] documented as of this encounter
--- OUTSIDE RECORDS SUMMARY | 2022-08-29 12:11 | XMS_ITS | Encounter Summary ---
:1975 Author Organization [place] Address [address] [place] [address] Care Team Providers Name Role Phone Timmy Perez MD Unavailable Yung Madrigal MD Unavailable Unavailable Frw, None Primary Care Provider Unavailable Winston Villatoro OD Unavailable Encounter Details Date Type Department Care Team Description 04/22/2013 Orders Only [facility] Th yroid disorder screen in [place] [facility] (Primary Dx) [address] [place] [address] Social History Tobacco Use Types Packs/Day Years Used Date Smoking Tobacco: Never Smokeless Tobacco: Never Alcohol Use Standard Drinks/Week Comments Yes 0 (1 standard drink = 0.6 oz pure alcoho l) minimal Sex Assigned at Date Recorded Not on file documented as of this encounter Progress Notes Apple Sykes MD - 04/30/2013 12:56 PM CDT Quick Note: Ok to recheck lab in 1 month. This level of TSH would not contribute to weight gain. Apple Sykes MD Apple Sykes MD - 04/22/2013 5:52 PM CDT Quick Note: TSH is high normal. No medication needed but would recheck this lab in 3 months as it has been slowly increasing. Apple Sykes MD documented in this encounter Miscellaneous Notes Addendum Note - Katie Madrid RN - 04/30/2013 3:12 PM CDT Addended by: KATIE MADRID on: 04/30/2013 03:12 PM Modules accepted: Orders documented in this encounter Plan of Treatment Not on filedocumented as of this encounter Procedures Procedure Name Priority Date/Time Associated Diagnosis Comme nts TSH Routine 04/22/2013 12:46 PM Thyroid disorder Resu lts for this CDT screen procedure are i n the results section . documented in this encounter Results TSH (04/22/2013 12:46 PM CDT) athologist Signature TSH 4.44 0.4 - 5.0 [facility] [place] mU/L LAB/RAD Specimen Anatomical Collection Method Collection Time Receive d Time (Source) Location / / Volume Laterality Blood specimen 04/22/2013 12:46 3 (specimen) PM CDT 12:47 PM CDT Apple Sykes MD LAB - BLOOD ORDERABLES Performing Organization Address City/State/ZIP Code Phon e Number [facility] [place] [facility] [place] [address] documented in this encounter Visit Diagnoses Diagnosis Thyroid disorder screen - Primary Screening for thyroid disorder documented in this encounter Care Teams Cable Former Relationship Specialty Start Date End Date Timmy Perez MD PCP - Obstetrics/Gynecology 03/02/0807/[address] [address] Yung Madrigal MD PCP - Orthopaedics Orthopedics 08/26/12 RETIRED Frw, None PCP - General Family Practice 08/26/12 05/03/13 Winston Villatoro OD PCP - Ophthalmology Ophthalmology 02/11/13 [facility] [place] [address] [place] [address] documented as of this encounter
--- OUTSIDE RECORDS SUMMARY | 2022-08-29 12:11 | XMS_ITS | Encounter Summary ---
:1975 Author Organization [place] Address [address] [place] [address] Care Team Providers Name Role Phone Timmy Perez MD Unavailable Yung Madrigal MD Unavailable Unavailable Winston Villatoro OD Unavailable Apple Sykes MD Primary Care Provider Westley Bates MD Unavailable Reason for Visit Reason Onset Date Comments Telephone 05/28/2013 Encounter Details Date Type Department Care Team Description 05/28/2013 Telephone [facility] [place] Yung will MD Telephone [facility] RETIRED [address] [place] [phone] Social History Tobacco Use Types Packs/Day Years Used Date Smoking Tobacco: Never Smokeless Tobacco: Never Alcohol Use Standard Drinks/Week Comments Yes 0 (1 standard drink = 0.6 oz pure alcoho l) minimal Sex Assigned at Date Recorded Not on file documented as of this encounter Miscellaneous Notes Telephone Encounter - Melany Up - 05/29/2013 3:07 PM CDT Pt was offered an appt in [place] but she works in [employer] so she will leave her appt as is. Telephone Encounter - Airam Gordillo - 05/29/2013 2:43 PM CDT Alcon called and has scheduled her MRI with [facility] on 06/05/2013. She also scheduled a follow up with Dr. Madrigal on 06/17/2013 but would like to get in sooner if possible. Telephone Encounter - Joya Castelan - 05/28/2013 11:45 AM CDT Alcon is in need of a standing mri which we do not do here. She has a my chart message into dr. Madrigal about this situation. Will wait to hear what his response is. Telephone Encounter - Leena Myers - 05/28/2013 11:20 AM CDT Alcon: [phone] Patient's insurance doesn't have good coverage at [facility] in [place] and would like to have her MRI here at [facility]. Please put in an order. Thanks. documented in this encounter Plan of Treatment Not on filedocumented as of this encounter Visit Diagnoses Not on filedocumented in this encounter Care Teams Geoscience Specialist Relationship Specialty Start Date End Date Timmy Perez MD PCP - Obstetrics/Gynecology 03/02/0807/[address] [id number] Yung Madrigal MD PCP - Orthopaedics Orthopedics 08/26/12 RETIRED Winstno Villatoro OD PCP - Ophthalmology Ophthalmology 02/11/13 [facility] 701 [facility] [address] [place] [address] Apple Sykes MD PCP - General Family Practice 05/04/13 10/25/[address] [place] [address] Westley Bates MD PCP - ENT Otolaryngology 05/14/13 07/28/18 XXX RETIRED XXX 701 [facility] [address] [place] [address] documented as of this encounter
--- OUTSIDE RECORDS SUMMARY | 2022-08-29 12:11 | XMS_ITS | Encounter Summary ---
:1975 Author Organization [place] Address [address] [place] [address] Care Team Providers Name Role Phone Timmy Perez MD Unavailable Yung Madrigal MD Unavailable Unavailable Frw, None Primary Care Provider Unavailable Winston Villatoro OD Unavailable Apple Sykes MD Primary Care Provider Encounter Details Date Type Department Care Team Description 04/17/2013 [facility] [place] Yung will MD [facility] RETIRED [address] [place] [address] Social History Tobacco Use Types Packs/Day [...] on filedocumented in this encounter Care Teams Scalp Treatment Specialist Relationship Specialty Start Date End Date Timmy Perez MD PCP - Obstetrics/Gynecology 03/02/0807/[address] [address] Yung Madrigal MD PCP - Orthopaedics Orthopedics 08/26/12 RETIRED Frw, None PCP - General Family Practice 08/26/12 05/03/13 Winston Villatoro, AMELIE PCP - Ophthalmology Ophthalmology 02/11/13 [facility] 701 [facility] [address] [place], [place] [phone] Apple Sykes MD PCP - General Family Practice 05/04/13 10/25/[address] [place] [phone] documented as of this encounter
--- OUTSIDE RECORDS SUMMARY | 2022-08-29 12:11 | XMS_ITS | Encounter Summary ---
:1975 Author Organization [place] Address [address] [place] [address] Care Team Providers Name Role Phone Timmy Perez MD Unavailable Yung Madrigal MD Unavailable Unavailable Winston Villatoro OD Unavailable Apple Sykes MD Primary Care Provider Westley Bates MD Unavailable Reason for Visit Reason Comments Results mri Encounter Details Date Type Department Care Team Description 07/23/2013 Office Visit [facility] Leah Martini, Tear of lateral System in Kehinde Pascual MD cartilage or meniscus Orthopedics [facility] of knee, current [address] (Primary Dx) [place] [address] Social History Tobacco Use Types Packs/Day Years Used Date Smoking Tobacco: Never Smokeless Tobacco: Never Alcohol Use Standard Drinks/Week Comments Yes 0 (1 standard drink = 0.6 oz pure alcoho l) minimal Sex Assigned at Date Recorded Not on file documented as of this encounter Progress Notes Leah Martnii MD - 07/27/2013 12:38 PM CST CLINIC ENCOUNTER Ms. Zamora returns today to discuss the results of her left knee MRI. I initially saw her back on 07/14/2013. The patient had been having symptoms of left knee pain after a mild twisting injury to the left knee on February 2013. She had some mild persistent symptoms through this summer but these did improve somewhat. 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 She was seen by her primary care provider who initially recommended she get an MRI but the patient never had the MRI done as her symptoms improved. Then on 07/06/2013, the patient was in bed and simply woke up the next morning with significant pain in the left knee and some swelling. On my evaluation concern was raised for a possible meniscal injury. An MRI was obtained. She follows up for those results. Since our last visit Ms. Zamora reports that she has overall been doing well. She is still having some pain but only seems to be bothersome when she goes up and down stairs. She rates the pain three to four out of ten at this point. She denies any instability episodes. She denies any locking. She has mild swelling but that is improved since last visit. We reviewed her MRI today and it does show evidence of a small tear on the anterior horn of the lateral meniscus. The lateral meniscus itself appears discoid as it extends quite a distance into the joint from the lateral margin. On the sagittal images I count four consecutive sagittal slices where I still see contiguous meniscal tissue from anterior to posterior. There is an area of increased signal indicative of a tear of the anterior horn. On reviewing the MRI as well as the plain x-rays, the patient does have an abnormally-shaped lateral femoral condyle and some squaring of the tibial plateau. 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 DIAGNOSIS: 1. Tear anterior horn lateral meniscus. 2. Discoid lateral meniscus. PLAN: I discussed with Ms. Zamora my findings on physical exam and imaging. I did review with her the diagnosis of discoid lateral meniscus and I did review with her the tear of the anterior horn. With regard to treatment options, I did discuss that as she is improving and doing pretty well at this point and is relatively asymptomatic other than going up and down stairs it is certainly reasonable to continue to monitor her symptoms and if they worsen we can always do surgery in the future. The patient states that she has been having problems with this knee long enough as it all started at the beginning of last summer and she has been having pain in the knee ever since, although when things improved she only has mild pain. At this point the pain she is experiencing is worse than it was last summer. She states she simply does not want to have to continue to deal with the possibility of the knee pain returning and things getting worse again if she does not go forward with surgery. I did discuss that the surgical treatment would consist of arthroscopic partial meniscectomy and saucerization of the discoid meniscus. We reviewed the usual expected postoperative course with regard to crutches for a few days and eventual return to normal ambulation. We did review the risks and benefits of surgery which include but are not limited to , heart attack, stroke, pneumonia which are from risks of general anesthesia. The real risks with regard to her knee are possible ongoing problems with pain, need for future surgeries, possible re-tear of the meniscus, bleeding, infection, damage to nearby blood vessels and nerves. She will need a preoperative medical clearance evaluation. This is especially important given her diagnosis of Lizy-Danlos syndrome. The patient was willing to go forward with the above-listed procedure. She will plan to pick a date at her earliest convenience. I will see her on the day of surgery. Leah Martini M.D. SHIRA// cc: ENT SVCS MGR documented in this encounter Nursing Notes 07/23/2013 11:00 AM CST >> Jill Fajardo LPN [facility] Jul 23, 2013 11:01 AM PT HERE FOR mri RESULTS NO PAIN Jill Fajardo LPN documented in this encounter Plan of Treatment Not on filedocumented as of this encounter Visit Diagnoses Diagnosis Tear of lateral cartilage or meniscus of knee, current - Primary documented in this encounter Care Teams Storekeeper Engineering Relationship Specialty Start Date End Date Timmy Perez MD PCP - Obstetrics/Gynecology 03/02/0807/[address] [address] Yung Madrigal MD PCP - Orthopaedics Orthopedics 08/26/12 RETIRED Winston Villatoro, AMELIE PCP - Ophthalmology Ophthalmology 02/11/13 [facility] [address] [facility] [address] [place] [address] Apple Sykes MD PCP - General Family Practice 05/04/13 10/25/[address] [place] [address] [id number] Westley Bates MD PCP - ENT Otolaryngology 05/14/13 07/28/18 XXX RETIRED XXX [address] [facility] [address] [place] [address] documented as of this encounter
--- OUTSIDE RECORDS SUMMARY | 2022-08-29 12:11 | XMS_ITS | Encounter Summary ---
:1975 Author Organization [place] Address [address] [place] [address] Care Team Providers Name Role Phone Timmy Perez MD Unavailable Yung Madrigal MD Unavailable Unavailable Frw, None Primary Care Provider Unavailable Winston Villatoro OD Unavailable Apple Sykes MD Primary Care Provider Westley Bates MD Unavailable GeorginaAlessandra APRN SOFTWARE DEVELOPER CONSULTANT Primary Care Provider [phone] Serum, Clara Garland MD Primary Care Provider [phone] Serum, Clara Garland MD Unavailable Serum, Clara Garland MD Unavailable [phone] Denise Woodson Ra, APRN [facility] Unavailable [phone] Denise Woodson Ra, APRN [facility] Primary Care Provider [phone] Reason for Visit Reason Onset Date Comments Medication Question 04/21/2013 Far[facility] Encounter Details Date Type Department Care Team Description 04/21/2013 Telephone [facility] Janna Rodriguez Medic ation Question System in [place]hinde Pascual RN ([facility] Family Practice [address] [place] [phone] Social History Tobacco Use Types Packs/Day Years Used Date Smoking Tobacco: Never Smokeless Tobacco: Never Alcohol Use Standard Drinks/Week Comments Yes 0 (1 standard drink = 0.6 oz pure alcoho l) minimal Sex Assigned at Date Recorded Not on file documented as of this encounter Miscellaneous Notes Telephone Encounter - Janna Rodriguez - 04/21/2013 12:09 PM CDT This nurse returned call to Pharmacist Kiko and per Dr. Sykes, pt to take Trazodone 50mg tablets Sig: Take 2 tablets by mouth at bedtime. Kiko stated understanding. Telephone Encounter - Janna Rodriguez - 04/21/2013 11:54 AM CDT Kiko-Pharmacist in outpatient pharmacy called to clarify trazodone dose prescribed today, which currently states: traZODone (DESYREL) 50 MG tablet 60 tablet 6 04/21/2013 Sig: Take 2 tablets (100 mg) by mouth At Bedtime Take 2 to 2 1/ tablets at bedtime Dr. Sykes-Is the second part of Sig to stated 2 to 2 1/2 tablets at bedtime? Will return call to Kiko at [phone] documented in this encounter Plan of Treatment Not on filedocumented as of this encounter Visit Diagnoses Not on filedocumented in this encounter Care Teams Paper Control Clerk Relationship Specialty Start Date End Date Timmy Perez MD PCP - 03/02/08 08/07/[address] [facility] Obstetrics/Gynecology [address] [address] Yung Madrigal MD PCP - Orthopaedics Orthopedics 08/26/12 RETIRED Frw, None PCP - General Family Practice 08/26/12 05/03/13 Winston Villatoro OD PCP - Ophthalmology Ophthalmology 02/11/13 [facility] [address] [facility] [address] [place] [address] Apple Sykes MD PCP - General Family Practice 05/04/13 10/25/16 [address] [facility] [address] [place] [address] Westley Bates MD PCP - ENT Otolaryngology 05/14/13 07/28/18 XXX RETIRED XXX 701 [facility] [address] [place] [address] Alessandra Erickson PCP - General Nurse Practitioner 10/26/16 02/06/17 Maryse, EMPLOYEE ADVISER SOFTWARE DEVELOPER CONSULTANT [address] [facility] [place] [address] SerumClara PCP - General Internal Medicine 02/07/17 09/20/20 MD Dada Serum, Clara PCP - Assigned PCP 01/17/17 11/18/18 MD Dada [facility] [address] [place] [address] Denise Woodson Ra, PCP - General Family Practice 09/21/20 EMPLOYEE ADVISER SOFTWARE DEVELOPER CONSULTANT [id number] [address] [id number] Serum, Clara Assigned PCP 01/17/17 07/16/20 MD Dada [facility] [address] [place] [address] Denise Woodson Ra, Assigned PCP 07/17/20 EMPLOYEE ADVISER SOFTWARE DEVELOPER CONSULTANT [id number] [address] [id number] documented as of this encounter
--- OUTSIDE RECORDS SUMMARY | 2022-08-29 12:11 | XMS_ITS | Encounter Summary ---
:1975 Author Organization [place] Address [address] [place] [address] Care Team Providers Name Role Phone Timmy Perez MD Unavailable Yung Madrigal MD Unavailable Unavailable Winston Villatoro OD Unavailable Apple Sykes MD Primary Care Provider Westley Bates MD Unavailable Encounter Details Date Type Department Care Team Description 06/05/2013 Medical Correspondence [facility] Frw, None Summary : System in [facility] Medical Records [address] [place] [address] Social History Tobacco Use Types [...] on filedocumented in this encounter Care Teams Compressor Station Operator Relationship Specialty Start Date End Date Timmy Perez MD PCP - Obstetrics/Gynecology 03/02/0807/[address] [address] Yung Madrigal MD PCP - Orthopaedics Orthopedics 08/26/12 RETIRED Winston Villatoro, AMELIE PCP - Ophthalmology Ophthalmology 02/11/13 [facility] [address] [facility] [address] [place] [address] Apple Sykes MD PCP - General Family Practice 05/04/13 10/25/[address] [place] [address] Westley Bates MD PCP - ENT Otolaryngology 05/14/13 07/28/18 XXX RETIRED XXX 701 [facility] [address] [place] [address] documented as of this encounter
--- OUTSIDE RECORDS SUMMARY | 2022-08-29 12:11 | XMS_ITS | Encounter Summary ---
:1975 Author Organization [place] Address [address] [place] [address] Care Team Providers Name Role Phone Timmy Perez MD Unavailable Yung Madrigal MD Unavailable Unavailable Frw, None Primary Care Provider Unavailable Winston Villatoro OD Unavailable Reason for Visit Reason Onset Date Comments Orders 04/21/2013 lab Encounter Details Date Type Department Care Team Description 04/21/2013 Telephone [facility] [place] Frw , None Orders (lab) [facility] [address] [place] [address] [facility] [phone] Social History Tobacco Use Types Packs/Day Years Used Date Smoking Tobacco: Never Smokeless Tobacco: Never Alcohol Use Standard Drinks/Week Comments Yes 0 (1 standard drink = 0.6 oz pure alcoho l) minimal Sex Assigned at Date Recorded Not on file documented as of this encounter Miscellaneous Notes Telephone Encounter - Tamie Hubbard - 04/21/2013 3:36 PM CDT Patient is calling requesting to have a TSH. Patient states that Dr. Sykes offered to order at appointment but patient declined patient has changed her mind she would like to have this test done. Patient will come in tomorrow for lab draw. documented in this encounter Plan of Treatment Not on filedocumented as of this encounter Visit Diagnoses Diagnosis Thyroid disorder screen - Primary Screening for thyroid disorder documented in this encounter Care Teams Senior Underwriter Relationship Specialty Start Date End Date Timmy Perez MD PCP - Obstetrics/Gynecology 03/02/0807/[address] [address] Yung Madrigal MD PCP - Orthopaedics Orthopedics 08/26/12 RETIRED Frw, None PCP - General Family Practice 08/26/12 05/03/13 Winston Villatoro OD PCP - Ophthalmology Ophthalmology 02/11/13 [facility] [address] [facility] [address] [place] [address] documented as of this encounter
--- OUTSIDE RECORDS SUMMARY | 2022-08-29 12:11 | XMS_ITS | Encounter Summary ---
:1975 Author Organization [place] Address [address] [place] [address] Care Team Providers Name Role Phone Timmy Perez MD Unavailable Yung Madrigal MD Unavailable Unavailable Frw, None Primary Care Provider Unavailable Winston Villatoro OD Unavailable Reason for Visit Reason Comments PT Initial Visit cervical Encounter Details Date Type Department Care Team Description 04/17/2013 [facility] Layne Shore, PT Ini tial Visit Health[facility]Nurse System in [place] PT (cervical) Visit Physical Therapy [place], [place] [address] [address] [place], [place] [phone] (Work) [phone] Social History Tobacco Use Types Packs/Day Years Used Date Smoking Tobacco: Never Smokeless Tobacco: Never Alcohol Use Standard Drinks/Week Comments Yes 0 (1 standard drink = 0.6 oz pure alcoho l) Sex Assigned at Date Recorded Not on file documented as of this encounter Progress Notes Layne Shore, PT - 04/17/2013 11:09 AM CDT [facility] Referring Provider: Dr. Kaitlin ESPINOZA Visit Date / Order Date: 04/10/13 Recheck: prn Orders: Evaluate and treat, gentle massage, ultrasound, traction etc, consider home traction unit. Medical Diagnosis: chronic neck pain, spasms Contraindications or Precautions: None Onset: chronic neck pain, recent exacerbation 2-3 months possibly due to new job Rehab Clinical Impression: bilateral neck and upper shoulder/back pain Specialty Tracking: Outpatient (Other) PHYSICAL THERAPY INITIAL EVALUATION and PLAN OF CARE SUBJECTIVE PRESENTATION AND ETIOLOGY Chief Complaint: neck pain, decreased ROM and decreased flexibility limiting their ability to perform activities of daily living and work tasks. Secondary Complaints: none Etiology: chronic neck pain, recent exacerbation 2-3 months possibly due to new job Pattern Since Onset: worsened Pertinent Medical / Surgical History: Epic Snapshot Reviewed with patient: chronic neck pain, back pain/SI dysfunction, anxiety disorder, depression Pain / Symptom: Location: bilateral neck/upper back Character: tense, pain, spasms Frequency: Constant or Activity Dependent. Intensity: Best: 3/10, worst 6/10 Pain / Symptoms are aggravated by: turning head, looking up or down Pain / Symptoms are eased by: massage Specific Questions: Paresthesia: NO Numbness: NO LEVEL OF FUNCTION Current Functional Limitations: Activities of daily living: moving head/neck, sleeping, reading, driving, house work Work tasks: typing, mousing Prior Functional Level: no limitations. Potential Home or Community Barriers: None CURRENT / PREVIOUS INTERVENTION(S): MD Treatment: referral to physical therapy and prescribed soft collar: not effective Diagnostic Tests: x-ray: EPIC summary reviewed Relieving Activities / Self Care: massage, heat Previous / Current therapies for current chief complaint: physical therapy: 1. [facility] clinic: not helpful at all (TENS, aggressive stretching) 2. 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 FUNCTIONAL QUESTIONNAIRES NDI: 42% (severe perceived disability) OBJECTIVE: OBSERVATION: Pain and guarding with neck motions INTEGUMENTARY: No abnormalities observed QUICK SCREEN: none POSTURE: Static: rounded shoulders, decreased cervical lordosis GAIT, LOCOMOTION, and BALANCE: Not Tested RANGE OF MOTION Cervical / Thoracic: Cervical: Active: Cervical AROM Comments Flexion Decreased 75% ++pain Extension Decreased 75% ++pain Left SB Decreased 80% ++pain Right SB Decreased 80% ++pain Left rotation Decreased 50% +pain Right rotation Decreased 50% +pain Shoulder: Active: WFL / WNL - All Motions MUSCLE PERFORMANCE: Cervical / Thoracic: Cervical RIMS: WNL/WFL Shoulder: MMT: WFL SPECIAL TESTS: Cervical / Thoracic: Spurlings: (-) Distraction: (+) Alar ligament stress test: (-) Hypomobility C2-7, T1-8 PALPATION: Cervical / Thoracic: Reproduction of symptoms with palpation of: Upper Trapezius Levator Scapulae Suboccipitals Cervical and thoracic paraspinals NEUROLOGICAL TESTS: Not Assessed NEUROMOTOR DEVELOPMENT AND SENSORY INTEGRATION: WNL/WFL (Observed during evaluation) VENTILATION, RESPIRATION, AND CIRCULATION: WNL/WFL (At rest and with activity) ASSESSMENT: Physical Therapy Diagnosis: Signs and symptoms consistent with:bilateral neck and upper shoulder/back pain Patient requires skilled Physical Therapy intervention for the following impairments: Limited knowledge of condition and / or self care - inability to control symptoms, Impaired posture / muscle imbalance, Joint hypomobility, Muscle flexibility limitations, Muscle strength and endurance limitations, Pain and ROM limitations These impairments are limiting the patient's ability to perform daily and work tasks. PLAN: Anticipated Goals and Expected Outcomes: Independent and safe with home exercise / self care programin 4 week(s). Good working knowledge of safe lifting and body mechanics in 2-3 week(s). Good working knowledge of posture principles / joint protection in 2-3 week(s). Work tasks (keying/mousing) 50% less pain or symptoms in 4 week(s). WFL CROM for safe driving and ADL's in 4 weeks. Rehab potential for achieving goals and expected outcomes: good Skilled physical therapy interventions and plan to achieve goals and expected outcomes: Patient education to inform, educate, and/or train patients, families, significant others, and caregivers to promote and optimize physical therapy services. Coordinate, communicate, and document to ensure the patient receives appropriate, comprehensive, andefficient quality care. Procedural interventions: modalities to relieve pain and increase tissue flexibility, manual therapytechniques to improve joint mobility and decrease pain , education in self care / home management training to include instruction in: joint protection principles, symptom control techniques and safe initiation of a phyiscal exercise program and therapeutic exercise to develop: strength and endurance, range of motion and flexibility Assessment will be ongoing with changes in treatment as indicated. 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 This plan of care has been discussed with the patient/lawn caretaker and the patient/lawn caretaker is in agreement. Frequency / Duration: Patient will be seen 1-2 sessions a week for 4 weeks. Anticipated discharge plan: Independent and safe with home exercise and self care program Layne Shore MPT Date: 04/17/2013 Referring Provider Certification: Referring Provider reviewing certifies the above treatment plan isrequired and authorized and that the patient's plan will be reviewed in 4 weeks. Referring Provider Signature: per electronic co-sign. Today's Treatment: Initial Evaluation. THERAPEUTIC PROCEDURES Self Care / Home Management Trainin minutes Symptom Control:stretch (gently) regularly, heat/iceprn Therapeutic Exercise: 5 minutes Cervical / Thoracic: Stretching: Chin tuck seated, scapular retraction, active bilateral cervical rotation and flexion 10- 20 x 2-3 x day, Pt issued written instructions. Manual tx x 8': STM/trigger point release bilateral cervical paraspinals and UT, sub occipital release pt supine, STM to thoracic paraspinals pt prone Modalities: SCTX x 15' with 8# pull pt supine, using home Smith unit Post treatment response: pt felt a stretch with traction, no pain. Focus next session will be on: patient education, muscular flexibility, range of motion and strengthof involved joint(s) Total Visit Time: 45 minutes Total Time-Based Code Only Minutes: 15 minutes. LEVEL VIAL SETTER PRESENT: NA MULTIDISCIPLINARY PATIENT / FAMILY EDUCATION [...] questions, Demonstrated ability, Verbalized recall / understanding documented in this encounter Plan of Treatment Not on filedocumented as of this encounter Visit Diagnoses Not on filedocumented in this encounter Care Teams Quality Technician Fiberglass Relationship Specialty Start Date End Date Timmy Perez MD PCP - Obstetrics/Gynecology 03/02/0807/[address] [address] Yung Madrigal MD PCP - Orthopaedics Orthopedics 08/26/12 RETIRED Frw, None PCP - General Family Practice 08/26/12 05/03/13 Winston Villatoro OD PCP - Ophthalmology Ophthalmology 02/11/13 [facility] [address] [facility] [address] [place] [address] documented as of this encounter
--- OUTSIDE RECORDS SUMMARY | 2022-08-29 12:11 | XMS_ITS | Encounter Summary ---
:1975 Author Organization [facility] Address [address] [place] [address] Care Team Providers Name Role Phone Timmy Perez MD Unavailable Yung Madrigal MD Unavailable Unavailable Frw, None Primary Care Provider Unavailable Reason for Visit Reason Comments URI coughing,hard to catch breat h, really got bad over night, couldn't sleep Encounter Details Date Type Department Care Team Description 11/20/2012 Office Visit [facility] Rubi Demarco MD Acute bronchitis (Primary Dx); System in [facility] RECURR DEPR PSYCH-SEVERE Family Practice [address] [facility] 701 [facility] [address] [place] [address] [phone] Social History Tobacco Use Types Packs/Day Years Used Date Smoking Tobacco: Never Smokeless Tobacco: Never Alcohol Use Standard Drinks/Week Comments Yes 0 (1 standard drink = 0.6 oz pure alcoho l) Sex Assigned at Date Recorded Not on file documented as of this encounter Last Filed Vital Signs Vital Sign Reading Time Taken Comments Blood Pressure 120/86 11/20/2012 10:25 AM DISEASE EDUCATION SPECIALIST Pulse 120 11/20/2012 10:25 AM DISEASE EDUCATION SPECIALIST Temperature 37.2 ??C (99 ??F) 11/20/2012 10:25 AM DISEASE EDUCATION SPECIALIST Respiratory Rate - - Oxygen Saturation 100% 11/20/2012 10:25 AM DISEASE EDUCATION SPECIALIST Inhaled Oxygen Concentration - - Weight 81 kg (178 lb 9.6 oz) 11/20/2012 10:25 AM DISEASE EDUCATION SPECIALIST Height 174 cm (5' 8.5) 11/20/2012 10:25 AM DISEASE EDUCATION SPECIALIST Body Mass Index 26.76 11/20/2012 10:25 AM DISEASE EDUCATION SPECIALIST documented in this encounter Progress Notes Rubi Demarco MD - 11/20/2012 10:38 PM CST SUBJECTIVE: Alcon is a 37 year old female who complains of productive cough, fever, SOB, wheezing and chest tightness for 1 days. Pt has underlying bronchopulmonary dysplasia and tendencies towards pneumonia. Pt had flu immunization. She denies a history of sinus/facial pressure and admits to a history of wheezing. Has not been using the Qvar as she says it does not work. Has noted chills and myalgias. Tobacco use reviewed. PMH reviewed. OBJECTIVE: She appears well, vital signs are as noted by the nurse. Eyes without injection. Ears normal. Throatand pharynx normal. Neck supple. No adenopathy in the neck. Nose is congested. Sinuses are not tender. The chest is clear, without wheezes or rales. Heart is RRR without murmer noted. Influenza negative for A/B ASSESSMENT: Bronchitis PLAN: Medications ordered: per orders. Albuterol prn. Symptomatic therapy suggested: fluids, rest, OTC analgesics, decongestants of choice. Discussed saline and medicated nasal sprays as appropriate. Call or return to clinic prn if these symptoms worsen or fail to improve as anticipated. Pt has albuterol at home. Will f/u here or with PCP in [place] or pulmonogist at [place] prn. ASE EDUCATION SPECIALIST documented in this encounter Plan of Treatment Not on filedocumented as of this encounter Procedures Procedure Name Priority Date/Time Associated Diagnosis Comme nts INFLUENZA A/B Routine 11/20/2012 11:00 AM Acute bronchitis Res ults for this ANTIGEN DISEASE EDUCATION SPECIALIST procedure are i n the results section. documented in this encounter Results Influenza A/B antigen (11/20/2012 11:00 AM DISEASE EDUCATION SPECIALIST) Component Value Ref Test Analysis Performed At [facility] Range Method Time Signature Influenza A/B Nasopharyngeal [facility] Agn Specimen [facility] Influenza A Negative NEG [facility] Influenza B Negative NEG [facility] Negative. A negative test result does not exclude infecti on, a follow-up [facility] respiratory culture is recommended. 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
--- OUTSIDE RECORDS SUMMARY | 2022-08-29 12:11 | XMS_ITS | Encounter Summary ---
:1975 Author Organization [place] Address [address] [place] [address] Care Team Providers Name Role Phone Timmy Perez MD Unavailable Yung Madrigal MD Unavailable Unavailable Winston Villatoro OD Unavailable Apple Sykes MD Primary Care Provider Westley Bates MD Unavailable Reason for Visit Reason Comments Knee Pain left knee Encounter Details Date Type Department Care Team Description 07/14/2013 Office Visit [facility] Leah Martini, Pain in joint, lower System in [place] leg (Primary Dx) Orthopedics [address] [id number] Social History Tobacco Use Types Packs/Day Years Used Date Smoking Tobacco: Never Smokeless Tobacco: Never Alcohol Use Standard Drinks/Week Comments Yes 0 (1 standard drink = 0.6 oz pure alcoho l) minimal Sex Assigned at Date Recorded Not on file documented as of this encounter Progress Notes Leah Martini MD - 07/16/2013 9:50 AM CDT CLINIC ENCOUNTER CHIEF COMPLAINT: Left knee pain. HISTORY OF PRESENT ILLNESS: Miss Zamora is a very pleasant 37-year-old female who presents with complaints of left knee pain. 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 The patient states that in February of 2013 she was getting up from her bed at home when she twisted her left knee on accident. She had problems with pain and swelling in the left knee. She was seen by her primary care provider and x-rays were obtained and were read as negative for any fractures or dislocations. An MRI was ordered by her primary care provider but the patient never had the MRI done as her symptoms improved. The patient did well and was more or less asymptomatic in her left knee throughout the summer of 2012 and was able to do her normal activities without difficulty. Then on July 06, 2013, she was in bed and when she woke up, she noted her left knee had new swelling in it and her left knee was painful. She noticed a numbness along the lateral aspect of her left knee and down her left leg. She had these symptoms for a couple days. She was seen by her primary care provider and ultrasound was done, which was negative for DVT. Ultimately she was referred to orthopedics for further evaluation. After a few days, the swelling and numbness resolved; however, the pain persisted and has more or less been located on the lateral aspect of her left knee at the level of the joint line. The pain is located at the lateral joint line as noted above. It is rated 5 to 6 out of 10 at its worst. She does note swelling of the left knee with increased level of activity. She reports that activities such as going up and down stairs, holding her knee in a single position for long periods of time such as sitting with the knee flexed makes her symptoms and pain worse. She also has difficulty getting in and out of her 's pickup as well as standing and walking for long periods of time. Rest and ice seem to make her symptoms better. She denies any mechanical symptoms and has not had any issues with locking or instability. She denies any fevers, chills or recent infections or erythema about the knee. PAST MEDICAL HISTORY: 1. Anxiety. 2. History of rosacea. 3. History of chronic respiratory disease. 4. Lizy -Danlos syndrome. MEDICATIONS: 1. Tramadol. 2. Celexa. 3. Fluticasone. 4. Advair. 5. Desyrel. 6. Metronidazole. ALLERGIES: ERYTHROMYCIN. SOCIAL HISTORY: Patient is and has three children. 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 She does not smoke and rarely drinks alcohol and denies illicit drug use. She does enjoy walking her dog, reading, and spending time with family. PHYSICAL EXAMINATION: On examination, Miss Zamora is seen sitting upright in the chair in the orthopedic surgery clinic office. She is awake, alert, oriented, responds appropriately to questions, is in no acute distress, and has a pleasant demeanor. With the patient supine on the examination table, she has range of motion from 0 to 125 degrees of the left knee. She has 1+ mild to moderate effusion in the left knee. There is no overlying erythema, there is no warmth, and there are no wounds about the left knee. She has a stable 1A Mini and posterior drawer. Her left knee is stable to varus and valgus stress at 0 and 30 degrees of flexion. She has laterally-based pain which reproduces the pain she presents for with Steinmann's maneuver as well as with Fred's maneuver. She is tender with palpation along the medial joint line and to a lesser extent along the lateral joint line. She has mild retropatellar crepitance. During examination, it is noted that the patient seemed to be tender diffusely at various areas around the knee, some of which are nonspecific locations. She was noted to have tenderness over the quad tendon just proximal to the patella as well as over the IT band laterally. She was also noted to have mild tenderness with palpation along the vastus lateralis musculature as well as the VMO muscle belly. She is also tender mildly with palpation over the pes bursa as well as over the fibular head. She reported normal sensation and had normal motor distally in that left lower extremity. IMAGING: No new imaging studies were obtained today but we did review the plain x-rays of her left knee dated March 11, 2013. Overall these show normal bony anatomy. Mild joint space narrowing medially and subtle valgus alignment. No fractures or dislocations are noted. Overall joint space is within normal limits. Patella height sits a little high and she may have mild patella arnulfo. CLINICAL ASSESSMENT: Left knee pain, possible meniscal injury. PLAN: I discussed with Miss Zamora my findings on physical examination and imaging. I discussed that it is possible that she may have sustained a minor injury to her left knee last February and then potentially may have worsened it in April with a seemingly simple turning maneuver in bed while changing positions. At this point, I do not think she has any ligamentous injury as she was not terribly unstable on examination today. Most of her pain seemed to be reproduced with maneuvers evaluating the meniscus, and she is tender along the joint line. At this point, I recommend we get an MRI to further evaluate for meniscal injury versus loose body. I will plan to see her back next week to review the results of the MRI, with definitive plans forthcoming. Leah Martini M.D. SHIRA/treasure cc: TOGRAPHY TEACHER documented in this encounter Nursing Notes 07/14/2013 9:30 AM CDT >> GALILEO MARTINEZ Cristianabilio Jul 14, 2013 9:44 AM Pt here for left knee pain. No injury noted. Pain is mostly lateral. Pain 3/10 documented in this encounter Plan of Treatment Not on filedocumented as of this encounter Visit Diagnoses Diagnosis Pain in joint, lower leg - Primary documented in this encounter Care Teams Director Digital Analytics Relationship Specialty Start Date End Date Timmy Perez MD PCP - Obstetrics/Gynecology 03/02/0807/[address] [address] Yung Madrigal MD PCP - Orthopaedics Orthopedics 08/26/12 RETIRED Winston Villatoro, AMELIE PCP - Ophthalmology Ophthalmology 02/11/13 [facility] [address] [facility] [address] [place] [address] Apple Sykes MD PCP - General Family Practice 05/04/13 10/25/[address] [place] [address] Westley Bates MD PCP - ENT Otolaryngology 05/14/13 07/28/18 XXX RETIRED XXX 701 [facility] [address] [place] [address] documented as of this encounter
--- OUTSIDE RECORDS SUMMARY | 2022-08-29 12:11 | XMS_ITS | Encounter Summary ---
:1975 Author Organization [facility] Address [address] [place] [address]. [place] [address] Care Team Providers Name Role Phone Timmy Perez MD Unavailable Yung Madrigal MD Unavailable Unavailable Frw, None Primary Care Provider Unavailable Reason for Visit Reason Comments Cough cough, throat iritation x 4 days. Encounter Details Date Type Department Care Team Description 09/05/2012 Office Visit [facility] Mel Tomas e bronchitis System in [place] H[place] (Primary Dx) Internal Medicine [address] [address] [place], [place] [phone] (Wo rk) Social History Tobacco Use Types Packs/Day Years Used Date Smoking Tobacco: Never Smokeless Tobacco: Never Alcohol Use Standard Drinks/Week Comments Yes 0 (1 standard drink = 0.6 oz pure alcoho l) Sex Assigned at Date Recorded Not on file documented as of this encounter Last Filed Vital Signs Vital Sign Reading Time Taken Comments Blood Pressure 118/88 09/05/2012 11:03 AM CROP FARMERS Pulse 100 09/05/2012 11:03 AM CROP FARMERS Temperature 37.4 ??C (99.4 ??F) 09/05/2012 11:03 AM CROP FARMERS Respiratory Rate - - Oxygen Saturation 100% 09/05/2012 11:03 AM CROP FARMERS Inhaled Oxygen Concentration - - Weight 78.6 kg (173 lb 6 oz) 09/05/2012 11:03 AM CROP FARMERS Height 174 cm (5' 8.5) 09/05/2012 11:03 AM CROP FARMERS Body Mass Index 25.98 09/05/2012 11:03 AM CROP FARMERS documented in this encounter Patient Instructions Patient InstructionsTaMel monsalve PA-C - 09/05/2012 11:32 AM CROP FARMERS Rest, fluids Supportive cares with OTC cough suppressants-DELSYM, Robitussin Take antibiotic as directed Continue with inhalers- Tylenol or ibuprofen for pain/fever If on antibiotic you get fever, worsening shortness of breath, chest pain or worsening cough, followup FARMERS documented in this encounter Progress Notes Mel Tomas PA-C - 09/05/2012 11:24 AM CST Alcon Zamora is a 36 year old female presenting for Chief Complaint Patient presents with ??? Cough cough, throat iritation x 4 days. Patient c/o cough, sore throat, body aches, chest pain x 4 days. Symptoms are getting worse. She haschills, but no fever. She also has congestion, runny nose. Cough is productive. Pain in chest worse with deep breathing. Feels like she has to work harder to breath. H/o bronchopulmonary dysplasia. Sheuses qvar inhaler in the AM and albuterol prn which does help. Current Outpatient Prescriptions Medication Sig ??? Beclomethasone Dipropionate (QVAR IN) Inhale into the lungs. ??? metroNIDAZOLE (METROGEL) 0.75 % gel Metrogel 1% not available ??? TRAZODONE HCL PO Take by mouth. ??? CELEXA 20 MG OR TABS ONE DAILY Past Medical History Diagnosis Date ??? Excessive or frequent menstruation 01/31/06 Hospitalized ??? Hemorrhage complicating a procedure ??? Acute posthemorrhagic anemia ??? Cervicalgia ??? Pain in joint, pelvic region and thigh Allergies Allergen Reactions ??? Erythromycin GI Disturbance Objective: Blood pressure 118/88, pulse 100, temperature 99.4 ??F (37.4 ??C), height 1.74 m (5' 8.5), weight 78.642 kg (173 lb 6 oz), last menstrual period 01/07/2006, SpO2 100.00%, not currently . Constitutional: healthy, alert and no distress Cardiovascular: negative, PMI normal. No lifts, heaves, or thrills. RRR. No murmurs, clicks gallops or rub Respiratory: negative, Percussion normal. Good diaphragmatic excursion. Lungs clear Head: Normocephalic. No masses, lesions, tenderness or abnormalities ENT: bilateral TM normal without fluid or infection, neck without nodes, throat normal without erythema or exudate and sinuses nontender Assessment/Plan: 1. Acute bronchitis azithromycin (ZITHROMAX) 250 MG tablet Rest, fluids Supportive cares with OTC decongestants, antihistamines, cough suppressants Tylenol or ibuprofen for pain/fever Follow up 1-2 weeks if no improvement in symptoms, sooner if worsening symptoms FARMERS documented in this encounter Plan of Treatment Not on filedocumented as of this encounter Visit Diagnoses Diagnosis Acute bronchitis - Primary documented in this encounter Care Teams Herbologist Relationship Specialty Start Date End Date Timmy Perez MD PCP - 03/02/08 08/07/15 [facility] Obstetrics/Gynecology [address] [place] [address] Yung Madrigal MD PCP - Orthopaedics Orthopedics 08/26/12 RETIRED Frw, None PCP - General Family Practice 08/26/12 05/03/13 documented as of this encounter
--- OUTSIDE RECORDS SUMMARY | 2022-08-29 12:12 | XMS_ITS | Encounter Summary ---
:1975 Author Organization [facility] Address [address] [place] [address] Care Team Providers Name Role Phone Timmy Perez MD Unavailable Encounter Details Date Type Department Care Team Description 08/11/2012 Results Only [facility] Chinedu Zamora ch, MD in [facility] [address] [facility] [address] [place] [address] [place] [address] [phone] (Wo rk) Social History Tobacco Use Types Packs/Day Years Used Date Smoking Tobacco: Never Alcohol Use Standard Drinks/Week Comments Yes 0 (1 standard drink = 0.6 oz pure alcoho l) Sex Assigned at Date Recorded Not on file documented as of this encounter Plan of Treatment Not on filedocumented as of this encounter Procedures Procedure Name Priority Date/Time Associated Comments Diagnosis CBC WITH PLATELETS & STAT 08/11/2012 3:35 PM R esults for this DIFFERENTIAL IT APPLICATION SUPPORT ANALYST procedure are i n the results section. documented in this encounter Results CBC with platelets differential (08/11/2012 3:35 PM IT APPLICATION SUPPORT ANALYST) [facility] Method Time Signature WBC 8.3 4.0 - [facility] 11.0 [facility] 10e9/L RBC Count 4.52 3.8 - 5.2 [facility] 10e12/L [facility] Hemoglobin 14.2 11.7 - [facility] 15.7 g/dL [facility] Hematocrit 40.9 35.0 - [facility] 47.0 % [facility] MCV 91 78 - 100 [facility] fl [facility] MCH 31.4 26.5 - [facility] 33.0 pg [facility] MCHC 34.7 31.5 - [facility] 36.5 g/dL [facility] RDW 12.2 10.0 - [facility] 15.0 % [facility] Platelet Count 163 150 - 450 [facility] 10e9/L [facility] Diff Method Automated [facility] Method [facility] % Neutrophils 61.5 40 - 75 % [facility] % Lymphocytes 25.4 20 - 48 % [facility] % Monocytes 7.6 0 - 12 % [facility] % Eosinophils 4.9 0 - 6 % [facility] % Basophils 0.5 0 - 2 % [facility] % Immature 0.1 0 - 0.4 % [facility] Granulocytes [facility] Absolute 5.1 1.6 - 8.3 [facility] Neutrophil 10e9/L [facility] Absolute 2.1 0.8 - 5.3 [facility] Lymphocytes 10e9/L [facility] Absolute 0.6 0.0 - 1.3 [facility] Monocytes 10e9/L [facility] Absolute 0.4 0.0 - 0.7 [facility] Eosinophils 10e9/L [facility] Absolute 0.0 0.0 - 0.2 [facility] Basophils 10e9/L [facility] Abs Immature 0.0 0 - 0.03 [facility] Granulocytes 10e9/L [facility] Specimen Anatomical Collection Method Collection Time Receive d Time (Source) Location / / Volume Laterality 08/11/2012 3:35 PM 2 3:41 IT APPLICATION SUPPORT ANALYST PM IT APPLICATION SUPPORT ANALYST Chinedu Espinoza MD LAB - BLOOD ORDERABLES Performing Organization Address City/State/ZIP Code Phon e Number [facility] [address] documented in this encounter Visit Diagnoses Not on filedocumented in this encounter Care Teams Drier Tender Naphthalene Relationship Specialty Start Date End Date Timmy Perez MD PCP - Obstetrics/Gynecology 03/02/08 11/2 10/31 [address] [place] [address] documented as of this encounter
--- OUTSIDE RECORDS SUMMARY | 2022-08-29 12:12 | XMS_ITS | Encounter Summary ---
:1975 Author Organization [facility] Address [address] [place] [address] Care Team Providers Name Role Phone Timmy Perez MD Unavailable Encounter Details Date Type Department Care Team Description 08/11/2012 Results Only [facility] Chinedu Zamora ch, MD in [facility] [address] [place] [address] [facility] [address] [place] [address] [place] [address] [phone] (Wo rk) Social History Tobacco Use Types Packs/Day Years Used Date Smoking Tobacco: Never Alcohol Use Standard Drinks/Week Comments Yes 0 (1 standard drink = 0.6 oz pure alcoho l) Sex Assigned at Date Recorded Not on file documented as of this encounter Plan of Treatment Not on filedocumented as of this encounter Procedures Procedure Name Priority Date/Time Associated Comments Diagnosis COMPREHENSIVE STAT 08/11/2012 3:35 PM Results for this METABOLIC PANEL INDUSTRIAL RENDERER procedure ar e in the results section. documented in this encounter Results (ABNORMAL) Comprehensive metabolic panel (08/11/2012 3:35 PM INDUSTRIAL RENDERER) Analysis Performed At Patho logist Time Signature Sodium 139 133 - 144 [facility] mmol/L [facility] Potassium 4.3 3.4 - 5.3 [facility] mmol/L LAB[facility]RAD Chloride 101 94 - 109 [facility] mmol/L LAB[facility]RAD Carbon Dioxide 28 20 - 32 [facility] mmol/L LAB[facility]RAD Anion Gap 9 6 - 17 [facility] mmol/L LAB[facility]RAD Glucose 112 (H) 60 - 99 [facility] mg/dL LAB[facility]RAD Urea Nitrogen 14 5 - 24 [facility] mg/dL LAB/RAD Creatinine 0.70 0.52 - [facility] 1.04 mg/dL LAB/RAD GFR Estimate >90 >60 [facility] mL/min/1.7 LAB/RAD m2 GFR Estimate If >90 >60 [facility] Black mL/min/1.7 LAB/RAD m2 Calcium 9.1 8.5 - 10.4 [facility] mg/dL LAB[facility]RAD Bilirubin Total 0.6 0.2 - 1.3 [facility] mg/dL LAB[facility]RAD Albumin 4.2 3.9 - 5.1 [facility] g/dL LAB[facility]RAD Protein Total 7.6 6.8 - 8.8 [facility] g/dL LAB[facility]RAD Alkaline 69 40 - 150 [facility] Phosphatase U/L LAB/RAD ALT 26 0 - 50 U/L [facility] AST 17 0 - 45 U/L [facility] Specimen Anatomical Collection Method Collection Time Receive d Time (Source) Location / / Volume Laterality 08/11/2012 3:35 PM 2 3:41 INDUSTRIAL RENDERER PM INDUSTRIAL RENDERER Chinedu Espinoza MD LAB - BLOOD ORDERABLES Performing Organization Address City/State/ZIP Code Phon e Number [facility] [address] documented in this encounter Visit Diagnoses Not on filedocumented in this encounter Care Teams Elevator Service Mechanic Relationship Specialty Start Date End Date Timmy Perez MD PCP - Obstetrics/Gynecology 03/02/0807/[address] [place] [address] documented as of this encounter
--- OUTSIDE RECORDS SUMMARY | 2022-08-29 12:12 | XMS_ITS | Encounter Summary ---
:1975 Author Organization [facility] Address [address] [place] [address] Care Team Providers Name Role Phone Timmy Perez MD Unavailable Reason for Visit Reason Comments PT Daily Visit back/hip PT Discharge Summary Encounter Details Date Type Department Care Team Description 01/30/2012 [facility] Layne Shore, PT Fl[place] Visit Health/Nurse System in [place] PT (back/hip); PT Visit Physical Therapy [place], [place] Discharge [place]... [address] [address] [place], [place] [phone] (Work) [phone] Social History Tobacco Use Types Packs/Day Years Used Date Smoking Tobacco: Never Alcohol Use Standard Drinks/Week Comments Yes 0 (1 standard drink = 0.6 oz pure alcoho l) Sex Assigned at Date Recorded Not on file documented as of this encounter Progress Notes Layne Shore, PT - 01/30/2012 1:33 PM CDT PHYSICAL THERAPY DAILY VISIT NOTES and DISCHARGE SUMMARY Visits Used / Authorized: 12/22. Treatment dates: 01/17/12-01/30/12 SUBJECTIVE: Since the last visit, the patient reports she went to a hotel over the weekend and sat in the hot tub. It felt good while she was in there but her pain became intense particularly in her L PSIS area afterward and she spent the next day unable to do much because of the pain. It is starting to feel better now. Pt also notes she has a high deductible and she would like to transition to a HEPat this point. Patient's chief complaints today are of L posterior hip and groin pain, she notes it is improved overall since the evaluation. Patient reports good compliance with HEP / self care. OBJECTIVE: SPECIAL TESTS: Lumbar / SI: Compression: (+) Distraction: (+) Posterior shear (thigh thrust): (-) Supine to sit test: (+) (L anterior innominate) Today's Treatment: MODALITIES: Contraindications and precautions were reviewed with the patient. Patient advised to alert the treating therapist if the modality is uncomfortable or too hot. Iontophoresis: 8 minutes. 1.2 - 1.4 ml Dexamethasone 80 mA min to L PSIS, pt instructed in wear time(4 hours), patch removal and skin care. THERAPEUTIC PROCEDURES Manual Therapy: 5 minutes Muscle Energy Techniques: Shot gun 3 reps x 6 sec hold, MET for L anteriorinnominate 5 reps, 6 sec hold. Therapeutic Exercise: 10 minutes Hip: verbal review: Stretching: piriformis stretch above and below 90*, pretzel stretch 3-5 reps each, 15 sec hold, 2 x day. Pelvic clocks 12/6, 3/9 and circles 2-3 x day supine and can try seated, side lying lumbar traction stretch 2-3 x day. TA set, TA with BKFO, TA with heel slides and SLR 5-10 x each, 1-2 x day. Added TA with 90/90, 90/90 with toe taps, bicycle and double leg extension. Pt unable to do today secondary to pain and weakness. Advised to wait a few weeks before trying them. Written instructions. Self Joint Mobs/MET: Pt instructed in self MET for shot gun and L anterior inominate GOALS: Independent and safe with home exercise / self care program in 3-4 week(s). MET Good working knowledge of posture principles / joint protection in 2-3 week(s). MET Ambulation without increased pain or symptoms for community distances on all surfaces in 2-4 week(s). ONGOING ASSESSMENT: Post treatment response: pt had difficulty with new exercises due to pain and weakness. Progress summary: Patient independent with HEP. PLAN: pt to continue with HEP and contact this PT with any future questions she has. Pt discharged. Total Visit Time: 25 minutes Total Time-Based Code Only Minutes: 23 minutes. Marking Devices Assembler Present: SONALI Therapist: Layne Shimek MPT documented in this encounter Plan of Treatment Not on filedocumented as of this encounter Visit Diagnoses Not on filedocumented in this encounter Care Teams Assistant Front Desk Manager Relationship Specialty Start Date End Date Timmy Perez MD PCP - Obstetrics/Gynecology 03/02/0807/[address] [address] documented as of this encounter
--- OUTSIDE RECORDS SUMMARY | 2022-08-29 12:12 | XMS_ITS | Encounter Summary ---
:1975 Author Organization [facility] Address [address] [place] [address] Care Team Providers Name Role Phone Timmy Perez MD Unavailable Encounter Details Date Type Department Care Team Description 08/11/2012 Results Only [facility] Polits joe, Chinedu Espinoza MD in [place] [facility] [place] [address] [place] [address] [place] [address] [phone] (Wo rk) Social History Tobacco Use Types [...] Diagnosis Comme nts XR CHEST 2 VIEWS 08/11/2012 4:39 PM Resul ts for this SPECIAL EQUIPMENT TECHNICIAN procedure are i n the results section. documented in this encounter Results X-ray Chest 2 vws* (08/11/2012 4:39 PM SPECIAL EQUIPMENT TECHNICIAN) Anatomical Region Laterality Modality Chest Other Specimen (Source) Anatomical Collection Method Collection Time Re ceived Time Location / / Volume Laterality 08/11/2012 4:39 PM SPECIAL EQUIPMENT TECHNICIAN Impressions 08/11/2012 8:09 PM SPECIAL EQUIPMENT TECHNICIAN IMPRESSION: No acute disease. FILEMON STRAND Narrative 08/11/2012 8:09 PM SPECIAL EQUIPMENT TECHNICIAN CHEST TWO VIEWS ?? 08/11/2012 4:39 PM HISTORY: Chest pain. COMPARISON: None. FINDINGS: The heart size is normal. Ther e are is a prosthesis in the heart which may be a PFO closure device. The lungs are clear. No pleural effusion. 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 Procedure Note Filemon Urbina MD - 08/11/2012Form atting of this note might be different from the original. CHEST TWO VIEWS 08/11/2012 4:39 PM HISTORY: Chest pain. COMPARISON: None. FINDINGS: The heart size is normal. Ther e are is a prosthesis in the heart which may be a PFO closure device. The lungs are clear. No pleural effusion. 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 IMPRESSION IMPRESSION: No acute disease. FILEMON URBINA Chinedu Espinoza MD [facility]G DIAGNOSTIC IMAGING ORDER NASRIN documented in this encounter Visit Diagnoses Not on filedocumented in this encounter Care Teams Trap Operator Relationship Specialty Start Date End Date Timmy Perez MD PCP - Obstetrics/Gynecology 03/02/0807/[address] [address] documented as of this encounter
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
--- OUTSIDE RECORDS SUMMARY | 2022-08-29 12:12 | XMS_ITS | Encounter Summary ---
:1975 Author Organization [facility] Address [address] [place] [address] Care Team Providers Name Role Phone Timmy Perez MD Unavailable Reason for Visit Reason Comments *-*INCOMING RECORDS*-* from : [facility] Encounter Details Date Type Department Care Team Description 08/21/2012 Medical Correspondence [facility] Frw, None Incoming Records : System in [facility] and Medical Records Clinics [address] [place] [phone] Social History Tobacco Use Types Packs/Day Years Used Date Smoking Tobacco: Never Alcohol Use Standard Drinks/Week Comments Yes 0 (1 standard drink = 0.6 oz pure alcoho l) Sex Assigned at Date Recorded Not on file documented as of this encounter Plan of Treatment Not on filedocumented as of this encounter Visit Diagnoses Not on filedocumented in this encounter Care Teams Rug Cutter Relationship Specialty Start Date End Date Timmy Perez MD PCP - Obstetrics/Gynecology 03/02/0807/[address] [address] documented as of this encounter
--- OUTSIDE RECORDS SUMMARY | 2022-08-29 12:12 | XMS_ITS | Encounter Summary ---
:1975 Author Organization [facility] Address [address] [place] [address] Care Team Providers Name Role Phone Timmy Perez MD Unavailable Reason for Visit Reason Comments Drug Screen preemployment uds/manpower Encounter Details Date Type Department Care Team Description 02/20/2011 Office Visit [facility] Nurse, Frw Occ Health examination of System in [facility] defined subpopulation Occupational Medicin e [address] (Primary Dx) [address] [facility] [employer] [place], [place] [address] [address] [place], [place] [phone] Social History Tobacco Use Types Packs/Day Years Used Date Smoking Tobacco: Never Alcohol Use Standard Drinks/Week Comments Yes 0 (1 standard drink = 0.6 oz pure alcoho l) Sex Assigned at Date Recorded Not on file documented as of this encounter Nursing Notes 02/20/2011 9:45 AM CDT >> [place] Feb 20, 2011 10:09 AM 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 Uneventful collection. documented in this encounter Plan of Treatment Not on filedocumented as of this encounter Visit Diagnoses Diagnosis Health examination of defined subpopulat ion - Primary documented in this encounter Care Teams Banquet Captain Relationship Specialty Start Date End Date Timmy Perez MD PCP - Obstetrics/Gynecology 03/02/08 11/2 10/[address] [address] documented as of this encounter
--- OUTSIDE RECORDS SUMMARY | 2022-08-29 12:12 | XMS_ITS | Encounter Summary ---
:1975 Author Organization [facility] Address [address] [place] [address] Care Team Providers Name Role Phone Timmy Perez MD Unavailable Encounter Details Date Type Department Care Team Description 08/11/2012 [facility] [place] [facility] [address] [facility] [place] [address] [place] [address] [phone] (Wo rk) Social History Tobacco Use Types Packs/Day Years Used Date Smoking Tobacco: Never Alcohol Use Standard Drinks/Week Comments Yes 0 (1 standard drink = 0.6 oz pure alcoho l) Sex Assigned at Date Recorded Not on file documented as of this encounter Plan of Treatment Not on filedocumented as of this encounter Visit Diagnoses Not on filedocumented in this encounter Care Teams Fitting Room Associate Relationship Specialty Start Date End Date Timmy Perez MD PCP - Obstetrics/Gynecology 03/02/0807/[address] [address] documented as of this encounter
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
--- OUTSIDE RECORDS SUMMARY | 2022-08-29 12:12 | XMS_ITS | Encounter Summary ---
:1975 Author Organization [place] Address [address] [place] [address] Care Team Providers Name Role Phone Timmy Perez MD Unavailable Encounter Details Date Type Department Care Team Description 08/11/2012 Results Only [facility] Chinedu Zamora ch, MD in [facility] [address] [place] [address] [facility] [facility] [address] [place] [address] [place] [address] [phone] (Wo rk) Social History Tobacco Use Types Packs/Day Years Used Date Smoking Tobacco: Never Alcohol Use Standard Drinks/Week Comments Yes 0 (1 standard drink = 0.6 oz pure alcoho l) Sex Assigned at Date Recorded Not on file documented as of this encounter Plan of Treatment Not on filedocumented as of this encounter Procedures Procedure Name Priority Date/Time Associated Diagnosis Comme nts TROPONIN I STAT 08/11/2012 3:35 PM Results f or this MANAGER BOOK procedure are i n the results section . documented in this encounter Results Troponin I (08/11/2012 3:35 PM MANAGER BOOK) P athologist Signature Troponin I ES <0.012 0.000 - [facility] 0.034 ug/L LAB/RAD Specimen Anatomical Collection Method Collection Time Receive d Time (Source) Location / / Volume Laterality 08/11/2012 3:35 PM 2 3:41 MANAGER BOOK PM MANAGER BOOK Chinedu Espinoza MD LAB - BLOOD ORDERABLES Performing Organization Address City/State/ZIP Code Phon e Number [facility] [address] documented in this encounter Visit Diagnoses Not on filedocumented in this encounter Care Teams Assistant Professor In Family Studies Relationship Specialty Start Date End Date Timmy Perez MD PCP - Obstetrics/Gynecology 03/02/0807/[address] [address] documented as of this encounter
--- OUTSIDE RECORDS SUMMARY | 2022-08-29 12:12 | XMS_ITS | Encounter Summary ---
:1975 Author Organization [place] Address [address] [place] [address] Care Team Providers Name Role Phone Timmy Perez MD Unavailable Yung Madrigal MD Unavailable Unavailable Frw, None Primary Care Provider Unavailable Reason for Visit Reason Onset Date Comments Other 08/26/2012 Encounter Details Date Type Department Care Team Description 08/26/2012 Telephone [facility] in Yung Vaca MD Other [facility] RETIRED [address] [place] [address] Social History Tobacco Use Types Packs/Day Years Used Date Smoking Tobacco: Never Alcohol Use Standard Drinks/Week Comments Yes 0 (1 standard drink = 0.6 oz pure alcoho l) Sex Assigned at Date Recorded Not on file documented as of this encounter Miscellaneous Notes Telephone Encounter - Gely Fowler - 08/26/2012 3:26 PM CST Forwarded to RIAL ASSEMBLER Telephone Encounter - Delmis Obregon - 08/26/2012 2:50 PM CST Phone: Work x [phone] Patient called - she seen the dr last week - she needs to give you an update on her going to the [facility] in [place]. Please call to discuss. Thank you. eDlmis RIAL ASSEMBLER documented in this encounter Plan of Treatment Not on filedocumented as of this encounter Visit Diagnoses Not on filedocumented in this encounter Care Teams Vice President Fixed Income Relationship Specialty Start Date End Date Timmy Perez MD PCP - 03/02/08 08/07/[address] [facility] Obstetrics/Gynecology [address] [place] [address] Yung Madrigal MD PCP - Orthopaedics Orthopedics 08/26/12 RETIRED Frw, None PCP - General Family Practice 08/26/12 05/03/13 documented as of this encounter
--- OUTSIDE RECORDS SUMMARY | 2022-08-29 12:12 | XMS_ITS | Encounter Summary ---
:1975 Author Organization [place] Address [address] [place] [address] Care Team Providers Name Role Phone Timmy Perez MD Unavailable Reason for Visit Reason Comments Derm Problem Encounter Details Date Type Department Care Team Description 05/05/2012 Office Visit [facility] June Freeman ( Primary Dx) System in [place] [facility] [place] [address] [place], [place] [phone] Social History Tobacco Use Types Packs/Day Years Used Date Smoking Tobacco: Never Alcohol Use Standard Drinks/Week Comments Yes 0 (1 standard drink = 0.6 oz pure alcoho l) Sex Assigned at Date Recorded Not on file documented as of this encounter Last Filed Vital Signs Vital Sign Reading Time Taken Comments Blood Pressure 110/66 05/05/2012 10:21 AM CDT Pulse 60 05/05/2012 10:21 AM CDT Temperature 36.6 ??C (97.9 ??F) 05/05/2012 10:21 AM CDT Respiratory Rate - - Oxygen Saturation - - Inhaled Oxygen Concentration - - Weight 80.2 kg (176 lb 14.4 oz) 05/05/2012 10:21 AM CDT Height - - Body Mass Index 25.94 03/08/2008 8:30 AM CDT documented in this encounter Patient Instructions Patient InstructionsRosa Freeman PA-C - 05/05/2012 10:35 AM CDT Images from the original note were not included. Home Back SP What Is Rosacea? Rosacea is a chronic skin disease that causes facial redness. Rosacea appears mainly in adults. Light-skinned people who tend to flush are most often affected. Rosacea is rarely a health risk. But the symptoms of this disease can hurt your self-image. If you have rosacea, know that treatment and self-care can help. A Disease with Changing Symptoms No one knows what causes rosacea. Heredity, flushing, and the presence of mites or bacteria may playa role. Increased blood flow in the facial skin may be involved. So may the use of some medications.Rosacea has four main types of symptoms that affect the skin. They are described below. Some people with rosacea also have problems with their eyes. Your eyelids may be red, and you may feel as though there is sand in your eyes. From day to day, symptoms can come and go. They may worsen or improve. But over time, symptoms tend to worsen. They can only be managed with proper treatment and self-care. Symptoms of Rosacea Flushing The central region of the face often flushes. This includes the cheeks, chin, forehead, and nose. This flushing can come and go. Its color can range from pink to red. Dilated Blood Vessels Flushing is always present. But it may worsen or get better. Besides redness (erythema), tiny dilated blood vessels (telangiectasia) may form a weblike pattern on one or more parts of the face. Acnelike Lesions Acnelike lesions appear on the face. They are called papules, pustules, and nodules. Facial redness and tiny, dilated blood vessels tend to persist. Enlargement of the Nose With severe rosacea, redness and swelling may enlarge the nose (rhinophyma). This occurs most often in men. ?? [id number] Miranda eWber, [address] [place] [address]. All rights reserved. This information is not intended as a substitute for professional medical care. Always follow your healthcare professional's instructions.Home Back SP Treating Rosacea There is no cure for rosacea. But medical treatment can help you manage your symptoms. Your doctor may prescribe one or more topical treatments to apply to your skin daily. You may also be given oral medications (taken by mouth). To relieve eye symptoms, you may use eyedrops and oral medications. Surgery can be done to correct rhinophyma (when redness and swelling causes the nose to enlarge). Your Role in Medical Treatment How well your treatment works depends partly on you. Follow your doctor???s treatment plan. Rosacea symptoms often get better with medications. But they tend to worsen again if medications are stopped.If your symptoms persist or worsen, ask about other treatment options. Rosacea Self-Care Besides sticking with your treatment plan, follow these tips to care for your skin: ?? Wash your face twice a day with a gentle facial cleanser. Rinse your skin well with warm (not hot) water. Pat your skin dry with a cotton towel. ?? Don???t scrub your skin or use sponges, brushes, or other abrasive tools. Doing so can irritate your skin. ?? Avoid harsh scrubs or astringents. These products can irritate your skin. ?? If you shave your face, use an electric razor. ?? Choose skin care products and cosmetics that are nonirritating, oil-free, and fragrance-free. Getting Good Results Learning about rosacea is the first step toward controlling this disease. With proper treatment and self-care, you can manage your symptoms and feel better about your skin. What Causes Rosacea Flare-Ups? It???s often hard to pinpoint the factors that cause rosacea flare-ups. Common triggers include weather extremes, sun exposure, alcoholic or hot beverages, spicy food, physical exertion, stress, illness, some skin products, and medications. To prevent flare-ups, keep a list of things that seem to makeyour rosacea worse. Then try to avoid these triggers. ?? [id number] Miranda Weber, [address] [place] [address], [place] [address]. All rights reserved. This information is not intended as a substitute for professional medical care. Always follow your healthcare professional's instructions. documented in this encounter Progress Notes Rosa Freeman PA-C - 05/05/2012 12:45 PM CDT SUBJECTIVE: Alcon Zamora is a 36 year old female who complains of Chief Complaint Patient presents with ??? Derm Problem rash on forehead and cheeks. Onset/Timin months constant but sometimes worsens. Pain Quantity/Quality: No Pain (0) Alleviating Factors: none Aggravating Factors: none Treatment: none Associated symptoms: none. History Smoking status ??? Never Smoker Smokeless tobacco ??? Not on file Allergies Allergen Reactions ??? Erythromycin GI Disturbance Current Outpatient Prescriptions Medication Sig ??? TRAZODONE HCL PO Take by mouth. ??? metroNIDAZOLE (METROGEL) 1 % gel Apply to affected areas once daily. ??? CELEXA 20 MG OR TABS ONE DAILY ??? ADVAIR DISKUS IN None Entered Past Medical History Diagnosis Date ??? Excessive or frequent menstruation 01/31/06 Hospitalized ??? Hemorrhage complicating a procedure ??? Acute posthemorrhagic anemia REVIEW OF SYSTEMS: General: negative for, fever, chills, night sweats, unplanned weight loss OBJECTIVE: BP 110/66 Pulse 60 Temp(Src) 97.9 ??F (36.6 ??C) (Temporal) Wt 80.241 kg (176 lb 14.4 oz) LMP 01/07/2006No Pain (0) GENERAL APPEARANCE ADULT: Alert, no acute distress ROSACEA: Has central erythema of cheeks and nose, and forehead. no telangectasia noted. Positive forpapules or pustules. No rhinophyma noted. No ocular changes. DIAGNOSTICS: none ASSESSMENT/PLAN: 1. Rosacea metroNIDAZOLE (METROGEL) 1 % gel Information given about the nature of acne rosacea and treatment. Went over triggers. Recheck in 2 months if not improving. The patient indicates understanding of these issues and agrees with the plan. documented in this encounter Nursing Notes 05/05/2012 10:05 AM CDT >> Meche Christian May 05, 2012 10:28 AM Red bumps on face. Seams to come in cycles. She has tried OTC creams and acne medications, no improvements. KL documented in this encounter Plan of Treatment Not on filedocumented as of this encounter Visit Diagnoses Diagnosis Rosacea - Primary documented in this encounter Care Teams Pipe Coverer And Insulator Relationship Specialty Start Date End Date Timmy Perez MD PCP - Obstetrics/Gynecology 03/02/0807/[address] [address] documented as of this encounter
--- OUTSIDE RECORDS SUMMARY | 2022-08-29 12:12 | XMS_ITS | Encounter Summary ---
:1975 Author Organization [place] Address [address] [place] [address] Care Team Providers Name Role Phone Timmy Perez MD Unavailable Reason for Visit Reason Comments PT Daily Visit hip Encounter Details Date Type Department Care Team Description 01/23/2012 [facility] Layne Shore, PT [place] Visit (hip) Health/Nurse System in [place] PT Visit Physical Therapy [place], [place] [address] [facility] [address] [place], [place] [phone] (Work) [phone] Social History Tobacco Use Types Packs/Day Years Used Date Smoking Tobacco: Never Alcohol Use Standard Drinks/Week Comments Yes 0 (1 standard drink = 0.6 oz pure alcoho l) Sex Assigned at Date Recorded Not on file documented as of this encounter Progress Notes Layne Shore, PT - 01/23/2012 1:00 PM CDT PHYSICAL THERAPY DAILY VISIT NOTES Visits Used / Authorized: 10/24. SUBJECTIVE: Since the last visit, the patient reports no change in symptoms. Although she does note she had less irritation over the L PSIS where the iontophoresis patch had been. Patient's chief complaints today are of L posterior hip and groin pain. Patient reports good compliance with HEP / self care. OBJECTIVE: SPECIAL TESTS: Lumbar / SI: Compression: (+) Distraction: (+) Posterior shear (thigh thrust): (-) Supine to sit test: (+) (L anterior innominate) +FRSL L4, L 5 Today's Treatment: MODALITIES: Contraindications and precautions were reviewed with the patient. Patient advised to alert the treating therapist if the modality is uncomfortable or too hot. Iontophoresis: 8 minutes. 1.2 - 1.4 ml Dexamethasone 80 mA min to L PSIS, pt instructed in wear time(4 hours), patch removal and skin care. THERAPEUTIC PROCEDURES Manual Therapy: 10 minutes Muscle Energy Techniques: Shot gun 3 reps x 6 sec hold, MET for L anterior innominate 5 reps, 6 sec hold. MET for FRSL pt seated 5 reps x 6 sec hold Therapeutic Exercise: 5 minutes Hip: verbal review: Stretching: piriformis stretch above and below 90*, pretzel stretch 3-5 reps each, 15 sec hold, 2 x day Self Joint Mobs/MET: Pt instructed in self MET for shot gun and L anterior inominate Added: pelvic clocks 12/6, 3/9 and circles 2-3 x day supine and can try seated, side lying lumbar traction stretch 2-3 x day. Pt issued hand outs. ASSESSMENT: Post treatment response: No immediate post treatment change in symptoms. Progress summary: Patient requires continued skilled therapy to improve: ROM, strength, function. PLAN: Continue with prescribed plan of care - progress as tolerated. Focus next session will be on: muscular flexibility, range of motion and stabilization of involved joint(s) Total Visit Time: 30 minutes Total Time-Based Code Only Minutes: 23 minutes. Finished Garment Inspector Present: SONALI Therapist: Layne Shore MPT documented in this encounter Plan of Treatment Not on filedocumented as of this encounter Visit Diagnoses Not on filedocumented in this encounter Care Teams Lead Performance Support Analyst Relationship Specialty Start Date End Date Timmy Perez MD PCP - Obstetrics/Gynecology 03/02/0807/[address] [address] documented as of this encounter
--- OUTSIDE RECORDS SUMMARY | 2022-08-29 12:12 | XMS_ITS | Encounter Summary ---
:1975 Author Organization [place] Address [address] [place] [address] Care Team Providers Name Role Phone Timmy Perez MD Unavailable Reason for Visit Reason Onset Date Comments Patient/info Update 05/06/2012 Appt concerns Encounter Details Date Type Department Care Team Description 05/06/2012 Telephone [facility] Chelsy Sauceda Pati ent/info Update System in [place] RN (Appt concerns) [place] [address] [address] [facility] [phone] [place] [address] (Work) [phone] Social History Tobacco Use Types Packs/Day Years Used Date Smoking Tobacco: Never Alcohol Use Standard Drinks/Week Comments Yes 0 (1 standard drink = 0.6 oz pure alcoho l) Sex Assigned at Date Recorded Not on file documented as of this encounter Miscellaneous Notes Telephone Encounter - Chelsy Sauceda RN - 05/06/2012 9:24 AM CDT Per pharmacy, 1% Metrogel is not available and is requesting order for Metrogel 0.75% BID instead. [facility] documented in this encounter Plan of Treatment Not on filedocumented as of this encounter Visit Diagnoses Diagnosis Rosacea - Primary documented in this encounter Care Teams Singing Waiter Or Waitress Relationship Specialty Start Date End Date Timmy Perez MD PCP - Obstetrics/Gynecology 6/02/05 07/18 10/[address] [place] [address] documented as of this encounter
--- OUTSIDE RECORDS SUMMARY | 2022-08-29 12:12 | XMS_ITS | Encounter Summary ---
:1975 Author Organization [place] Address [address] [place] [address] Care Team Providers Name Role Phone Timmy Perez MD Unavailable Reason for Visit Reason Comments PT Daily Visit hip Encounter Details Date Type Department Care Team Description 01/25/2012 [facility] Layne Shore, PT Fl[place] Visit (hip) Health/Nurse System in [place] PT Visit Physical Therapy [place], [place] [address] [place] [address] [place], [place] [phone] (Work) [phone] Social History Tobacco Use Types Packs/Day Years Used Date Smoking Tobacco: Never Alcohol Use Standard Drinks/Week Comments Yes 0 (1 standard drink = 0.6 oz pure alcoho l) Sex Assigned at Date Recorded Not on file documented as of this encounter Progress Notes Layne Shore, PT - 01/25/2012 10:25 AM CDT PHYSICAL THERAPY DAILY VISIT NOTES Visits Used / Authorized: 11/21. SUBJECTIVE: Since the last visit, the patient reports she is having less of the L leg pain she was having when she initially came in. She states she does notice more general mm soreness in her L buttock and upper hip but she thinks it is from all the things changing position. Patient's chief complaints today are of L [...] reps x 6 sec hold Therapeutic Exercise: 8 minutes Hip: verbal review: Stretching: piriformis stretch above and below 90*, pretzel stretch 3-5 reps each, 15 sec hold, 2 x day. Pelvic clocks 12/6, 3/9 and circles 2-3 x day supine and can try seated, side lying lumbar traction stretch 2-3 x day. Added TA set, TA with BKFO, TA with heel slides and SLR 5-10 x each, 1-2 x day. Written instructions. Self Joint Mobs/MET: Pt instructed in self MET for shot gun and L anterior inominate ASSESSMENT: Post treatment response: pt felt fatigue with exercises but not pain. Progress summary: Patient requires continued skilled therapy to improve: ROM, strength, function. PLAN: Continue with prescribed plan of care - progress as tolerated. Focus next session will be on: muscular flexibility, range of motion and stabilization of involved joint(s) Total Visit Time: 30 minutes Total Time-Based Code Only Minutes: 26 minutes. Developer Advisor Present: SONALI Therapist: Layne Shore MPT documented in this encounter Plan of Treatment Not on filedocumented as of this encounter Visit Diagnoses Not on filedocumented in this encounter Care Teams Bi Application Developer Relationship Specialty Start Date End Date Timmy Perez MD PCP - Obstetrics/Gynecology 03/02/0807/[address] [address] documented as of this encounter
--- OUTSIDE RECORDS SUMMARY | 2022-08-29 12:12 | XMS_ITS | Encounter Summary ---
:1975 Author Organization [place] Address [address] [place] [address] Care Team Providers Name Role Phone Timmy Perez MD Unavailable Encounter Details Date Type Department Care Team Description 01/09/2012 Medical Correspondence [facility] [place] Frw, None Immunization Records System in [place] Medical Records [address] [place] [address] Social History Tobacco Use Types Packs/Day Years Used Date Smoking Tobacco: Never Alcohol Use Standard Drinks/Week Comments Yes 0 (1 standard drink = 0.6 oz pure alcoho l) Sex Assigned at Date Recorded Not on file documented as of this encounter Plan of Treatment Not on filedocumented as of this encounter Visit Diagnoses Not on filedocumented in this encounter Care Teams Electronic Parts Salesperson Relationship Specialty Start Date End Date Timmy Perez MD PCP - Obstetrics/Gynecology 03/02/0807/[address] [address] documented as of this encounter
--- OUTSIDE RECORDS SUMMARY | 2022-08-29 12:12 | XMS_ITS | Encounter Summary ---
:1975 Author Organization [place] Address [address] [place] [address] Care Team Providers Name Role Phone Timmy Perez MD Unavailable Encounter Details Date Type Department Care Team Description 08/11/2012 Results Only [facility] Chinedu Zamora ch, MD in [facility] [address] [place] [address] [place] [address] [phone] (Wo rk) Social History Tobacco Use Types Packs/Day Years Used Date Smoking Tobacco: Never Alcohol Use Standard Drinks/Week Comments Yes 0 (1 standard drink = 0.6 oz pure alcoho l) Sex Assigned at Date Recorded Not on file documented as of this encounter Plan of Treatment Not on filedocumented as of this encounter Procedures Procedure Name Priority Date/Time Associated Comments Diagnosis D DIMER QUANTITATIVE STAT 08/11/2012 3:35 PM R esults for this MEDIA RELATIONS INTERN procedure are i n the results section. documented in this encounter Results D dimer quantitative (08/11/2012 3:35 PM MEDIA RELATIONS INTERN) P athologist Signature D Dimer 0.5 0.0 - 0.50 [facility] ug/ml FEU LAB/RAD Specimen Anatomical Collection Method Collection Time Receive d Time (Source) Location / / Volume Laterality 08/11/2012 3:35 PM 2 3:41 MEDIA RELATIONS INTERN PM MEDIA RELATIONS INTERN Chinedu Espinoza MD LAB - BLOOD ORDERABLES Performing Organization Address City/State/ZIP Code Phon e Number [facility] [address] documented in this encounter Visit Diagnoses Not on filedocumented in this encounter Care Teams Multilith Operator Relationship Specialty Start Date End Date Timmy Perez MD PCP - Obstetrics/Gynecology 03/02/0807/[address] [address] documented as of this encounter
--- OUTSIDE RECORDS SUMMARY | 2022-08-29 12:12 | XMS_ITS | Encounter Summary ---
:1975 Author Organization [place] Address [address] [place] [address] Care Team Providers Name Role Phone Timmy Perez MD Unavailable Reason for Referral Specialty Diagnoses / Procedures Referred By Contact Refer red To Contact [facility] [address] [place] [address] Referral ID Status Reason Start Date Expiration Date Visits Requ ested Visits Authorized Reason for Visit Reason Comments Orders PT Orders : [facility] Encounter Details Date Type Department Care Team Description 01/10/2012 Medical Correspondence [facility] in [place], None [place] [facility] [address] [place] [place] [address] Social History Tobacco Use Types Packs/Day Years Used Date Smoking Tobacco: Never Alcohol Use Standard Drinks/Week Comments Yes 0 (1 standard drink = 0.6 oz pure alcoho l) Sex Assigned at Date Recorded Not on file documented as of this encounter Plan of Treatment Pending Results Name Type Priority Associated Diagnoses Date/Ti me PHYSICAL THERAPY (RW/ZU) REFERRAL Referral Routine 01/10/2012 documented as of this encounter Visit Diagnoses Not on filedocumented in this encounter Care Teams Log Data Technician Relationship Specialty Start Date End Date Timmy Perez MD PCP - Obstetrics/Gynecology 03/02/08 11/2 10/[address] [address] documented as of this encounter
--- OUTSIDE RECORDS SUMMARY | 2022-08-29 12:12 | XMS_ITS | Encounter Summary ---
:1975 Author Organization [place] Address [address] [place] [address] Care Team Providers Name Role Phone Timmy Perez MD Unavailable Yung Madrigal MD Unavailable Unavailable Frw, None Primary Care Provider Unavailable Winston Villatoro OD Unavailable Apple Sykes MD Primary Care Provider Westley Bates MD Unavailable GeorginaAlessandra APRN CUSTOMER EXPERIENCE LEADER Primary Care Provider [phone] Serum, Clara Garland MD Primary Care Provider [phone] Serum, Clara Garland MD Unavailable [phone] Serum, Clara Garland MD Unavailable [phone] Denise Woodson Ra, APRN CUSTOMER EXPERIENCE LEADER Unavailable [phone] Denise Woodson Ra, APRN [facility] Primary Care Provider [phone] Encounter Details Date Type Department Care Team Description 01/17/2012 [facility] [place] [place] [address] in [facility] Interface, MD Fritz [address] [place] [address] Social History Tobacco Use Types Packs/Day [...] on filedocumented in this encounter Care Teams Binder Sorter Relationship Specialty Start Date End Date Timmy Perez MD PCP - 03/02/08 08/07/15 [facility] Obstetrics/Gynecology [place] [address] [place] [address] Yung Madrigal MD PCP - Orthopaedics Orthopedics 08/26/12 RETIRED Frw, None PCP - General Family Practice 08/26/12 05/03/13 Winston Villatoro OD PCP - Ophthalmology Ophthalmology 02/11/13 [facility] [address] [facility] [address] [place] [address] Apple Sykes MD PCP - General Family Practice 05/04/13 10/25/[address] [place] [address] Westley Bates MD PCP - ENT Otolaryngology 05/14/13 07/28/18 XXX RETIRED XXX [address] [facility] [address] [place] [address] Alessandra Erickson PCP - General Nurse Practitioner 10/26/16 02/06/17 BARRERA Serra CUSTOMER EXPERIENCE LEADER [address] [address] [place] [id number] Clara Cornell PCP - General Internal Medicine 02/07/17 09/20/20 MD Dada Clara Cornell PCP - Assigned PCP 01/17/17 11/18/18 MD Dada [facility] [address] [place], [place] [id number] Denise Woodson Ra, PCP - General Family Practice 09/21/20 OCCUPATIONAL HEALTH AND SAFETY MANAGER CUSTOMER EXPERIENCE LEADER [address] [address] Clara Cornell Assigned PCP 01/17/17 07/16/20 MD Dada [address] [id number] Denise Woodson Ra, Assigned PCP 07/17/20 OCCUPATIONAL HEALTH AND SAFETY MANAGER CUSTOMER EXPERIENCE LEADER [address] [address] documented as of this encounter
--- OUTSIDE RECORDS SUMMARY | 2022-08-29 12:12 | XMS_ITS | Encounter Summary ---
:1975 Author Organization [place] Address [address] [place] [address] Care Team Providers Name Role Phone Timmy Perez MD Unavailable Reason for Referral Specialty Diagnoses / Procedures Referred By Contact Refer red To Contact [facility] CBO [address] [place] [address] Referral ID Status Reason Start Date Expiration Date Visits Requ ested Visits Authorized Reason for Visit Reason Comments Orders PT Orders : [facility] Encounter Details Date Type Department Care Team Description 01/10/2012 Medical Correspondence [facility] in Fr w, None [facility] [address] [place] [address] Social History Tobacco Use Types Packs/Day [...] on filedocumented in this encounter Care Teams Spark Plug Tester Relationship Specialty Start Date End Date Timmy Perez MD PCP - Obstetrics/Gynecology 03/02/08 11/2 10/[address] [address] documented as of this encounter
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
--- OUTSIDE RECORDS SUMMARY | 2022-08-29 12:13 | XMS_ITS | Encounter Summary ---
:1975 Author Organization [place] Address [address] [place] [address] Care Team Providers Name Role Phone Timmy Perez MD Unavailable Reason for Referral - Closed Specialty Diagnoses / Procedures Referred By Contact Refer red To Contact Diagnoses Cervicalgia Zz Rw Phy Therapy Procedures RW PT BILLING [[id number]] [phone] [phone] Referral ID Status Reason Start Date Expiration Date Visits Requ ested Visits Authorized [id number] Closed 03/18/2008 09/15/2011 1 1 Reason for Visit Reason Comments PT Daily Visit cervical spine Encounter Details Date Type Department Care Team Description 03/18/2008 [facility] Maryse Siegel PT [place] Visit Health/Nurse System in [place] Sims PT (cervical spine) Visit Physical Therapy [facility] [address] [place] [address] [place] [address] [address] [phone] Social History Tobacco Use Types Packs/Day Years Used Date Smoking Tobacco: Never Alcohol Use Standard Drinks/Week Comments Yes 0 (1 standard drink = 0.6 oz pure alcoho l) Sex Assigned at Date Recorded Not on file documented as of this encounter Progress Notes Maryse Siegel - 03/18/2008 12:15 PM CDT PHYSICAL THERAPY DAILY VISIT NOTES SUBJECTIVE: Since the last visit, the patient reports her neck was sore at the end of Saturday, but she is unsureif it was therapy or working that caused the soreness. IT was gone by Saturday. Patient reports fair compliance with HEP / self care. She is trying to correct her posture more, butstill is sitting for an hour period at a time. OBJECTIVE: TREATMENT TODAY CONSISTED OF: MODALITIES: Contraindications and precautions were reviewed with the patient. Ultrasound: 100% US at 1.3 w/cm2, 1 MHz x 8 minutes to bilateral paraspinals and upper trap. Patientposition: prone. THERAPEUTIC PROCEDURES Manual Therapy: 10 minutes Joint Mobilization: Technique: central PA's and unilateral PA's to C1-4. Grade: II and III. Patient position: prone. Hypomobility noted at all joints, tenderness at C3 Therapeutic Exercise: 7 minutes Reviewed, progressed, and/or modified patient's HEP - issued writtenhandout(s). Pt was able to demonstrate scapular retraction properly with tactile cues. At this session pt was not interested in adding postural strengthening exercises, but may be interested next session. She was instructed in the benefits of strengthening the postural muscles. ASSESSMENT: Post treatment response: Subjective report of decreased pain post treatment. Patient demonstrates a good understanding of HEP / Self Care. Progress summary: Patient requires continued skilled physical therapy to improve: pain, posture. Anticipated goals and expected outcomes: Patient is progressing toward completion of all anticipatedgoals and expected outcomes. PLAN: Continue with prescribed treatment and progress as tolerated. Focus next session will be on: joint mobility and pain relief. Total Visit Time: 30 minutes Total Time-Based Code Only Minutes: 25 minutes. Assistant Analyst Present: SONALI Therapist: Maryse Siegel DPT documented in this encounter Plan of Treatment Not on filedocumented as of this encounter Procedures Procedure Name Priority Date/Time Associated Diagnosis Comme nts RW PT BILLING Routine 03/18/2008 12:15 PM CDT Cervicalgia-reha b dx documented in this encounter Visit Diagnoses Diagnosis Cervicalgia-rehab dx - Primary Cervicalgia documented in this encounter Care Teams Manager Financial Relationship Specialty Start Date End Date Timmy Perez MD PCP - Obstetrics/Gynecology 03/02/0807/[address] [address] documented as of this encounter
--- OUTSIDE RECORDS SUMMARY | 2022-08-29 12:13 | XMS_ITS | Encounter Summary ---
:1975 Author Organization [place] Address [address] [place] [address] Care Team Providers Name Role Phone Timmy Perez MD Unavailable Encounter Details Date Type Department Care Team Description 03/16/2008 Orders Only [facility]ine General Medical Examination at a Health Care Facility; in [place] Lab Fatigue [address] [place] [address] Social History Tobacco Use Types Packs/Day Years Used Date Smoking Tobacco: Never Alcohol Use Standard Drinks/Week Comments Yes 0 (1 standard drink = 0.6 oz pure alcoho l) Sex Assigned at Date Recorded Not on file documented as of this encounter Plan of Treatment Not on filedocumented as of this encounter Procedures Procedure Name Priority Date/Time Associated Diagnosis Comme nts HCL TSH W/FREE T4 Routine 03/16/2008 8:05 AM Fatigue Resu lts for this REFLEX CDT procedure are i n the results section. HCL MAGNESIUM Routine 03/16/2008 8:05 AM Fatigue Results for this CDT procedure are i n the results section. HCL GLUCOSE Routine 03/16/2008 8:05 AM Fatigue Results f or this CDT procedure are i n the results section. HCL FSH Routine 03/16/2008 8:05 AM Fatigue Results f or this CDT procedure are i n the results section. CL AFF A.M.A. LIPID Routine 03/16/2008 8:05 AM Routine General Results for this PANEL CDT Medical Examination procedur e are in at a Health Care the results Facility section. HC VENOUS COLLECTION Routine 03/16/2008 7:47 AM Routine Genera l CDT Medical Examination at a Health Care Facility documented in this encounter Results FSH (GONADOTROPIN) (03/16/2008 8:05 AM CDT) P athologist Signature FSH 4.6 IU/L [facility] Comment: FSH Reference Range Female: Follicular ?2.5-10.2 ? Mid-cycle ? 3.4-33.4 ? Luteal ?1.5-9. 1 ? Postmenopausal ??23.0-116.3 Specimen Anatomical Collection Method Collection Time Receive d Time (Source) Location / / Volume Laterality 03/16/2008 8:05 AM 8 8:06 CDT AM CDT Timmy Perez MD LABORATORY Performing Organization Address City/[facility]/ZIP Code Phon e Number [facility] [address] [place], [place] [phone] [place] [address] LABS MAGNESIUM (03/16/2008 8:05 AM CDT) P athologist Signature Magnesium 1.8 1.6 - 2.3 [facility] mg/dL [facility] Specimen Anatomical Collection Method Collection Time Receive d Time (Source) Location / / Volume Laterality 03/16/2008 8:05 AM 8 8:06 CDT AM CDT Timmy Perez MD LABORATORY Performing Organization Address City/[facility]/ZIP Code Phon e Number [facility] [address] GLUCOSE (03/16/2008 8:05 AM CDT) P athologist Signature Glucose 84 60 - 99 [facility] mg/dL [facility] Specimen Anatomical Collection Method Collection Time Receive d Time (Source) Location / / Volume Laterality 03/16/2008 8:05 AM 8 8:06 CDT AM CDT Timmy Perez MD LABORATORY Performing Organization Address City/State/ZIP Code Phon e Number [facility] [address] TSH W/FREE T4 REFLEX (03/16/2008 8:05 AM CDT) P athologist Signature TSH 2.95 0.4 - 5.0 [facility] mU/L [facility] Specimen Anatomical Collection Method Collection Time Receive d Time (Source) Location / / Volume Laterality 03/16/2008 8:05 AM 8 8:06 CDT AM CDT Timmy Perez MD LABORATORY Performing Organization Address City/State/ZIP Code Phon e Number [facility] [address] (ABNORMAL) A.M.A. LIPID PANEL (03/16/2008 8:05 AM CDT) P athologist Signature Cholesterol 188 0 - 200 [facility] mg/dL [facility] Comment: LDL Cholesterol is the primary guide to therapy: LDL-cholesterol goal in high risk patients is <100 mg/dL and in very high risk patients is <70 mg/dL. The NCEP recommends further evaluation of: patients with cholesterol <200 mg/dL if additional risk factors are present, cholesterol >240 mg/dL, triglycerides >150 mg/dL, or HDL <40 mg/dL. Triglycerides 100 0 - 150 mg/dL [facility] HDL Cholesterol 48 (L) 50 - 110 mg/dL [facility] LDL Cholesterol Calculated 120 0 - 129 mg/dL [facility] VLDL-Cholesterol 20 0 - 30 mg/dL [facility] Cholesterol/HDL Ratio 3.9 0.0 - 5.0 [facility] Specimen Anatomical Collection Method Collection Time Receive d Time (Source) Location / / Volume Laterality 03/16/2008 8:05 AM 8 8:06 CDT AM CDT Timmy Perez MD LABORATORY Performing Organization Address City/State/ZIP Code Phon e Number [facility] [address] documented in this encounter Visit Diagnoses Diagnosis Routine general medical examination at a health care facility Fatigue Other malaise and fatigue documented in this encounter Care Teams Midwife Relationship Specialty Start Date End Date Timmy Perez MD PCP - Obstetrics/Gynecology 03/02/0807/[address] [place] [address] documented as of this encounter
--- OUTSIDE RECORDS SUMMARY | 2022-08-29 12:13 | XMS_ITS | Encounter Summary ---
:1975 Author Organization [place] Address [address] [place] [address] Care Team Providers Name Role Phone Unavailable Primary Care Provider Unavailable Reason for Visit Reason Onset Date Comments Triage 12/27/2005 pelvic pain Encounter Details Date Type Department Care Team Description 12/27/2005 Telephone [facility] Timmy Perez MD Triage (pelvic pain) System in [facility] [place] [address] [address] [place] [address] [phone] (Wo rk) Social History Tobacco Use Types Packs/Day Years Used Date Smoking Tobacco: Never Alcohol Use Standard Drinks/Week Comments Not Asked 0 (1 standard drink = 0.6 oz pure alcoho l) Sex Assigned at Date Recorded Not on file documented as of this encounter Miscellaneous Notes Telephone Encounter - Leena Celis - 12/27/2005 9:53 AM CDT TELEPHONE TRIAGE ENCOUNTER FORM Date: 12/27/2005 PCP: No primary provider on file. Patient Name: Alcon Zamora Gender: female : 1975 Age: [age] year old Time: 9:45 AM Phone Numbers: [phone] (home) Pharmacy: Data Unavailable ASSESSMENT Presenting Problem: pelvic pain Subjective/objective: Pt called with complaints of pelvic pain, states has hx of chronic pelvic pain for many years. Previous pt of Dr. Tellez in [place]. States woke up this am with pain low mid pelvic, rates pain 9/10. [place] faint this AM upon rising, not convertable lying down or sitting. Denies fever, last period was last week, and was normal. Hx of tubal ligation per pt. No vomiting, denies urinary or bowel changes or problems. Up until this AM had been feeling well, eating and drinking fine. Pt states has hx of D&C for pelvic pain problems in the past. No bleeding today associated with pain. Onset: rapid Duration: 1 days Associated Sx: No fever noted. Problem list reviewed: YES Recent History: No. Recent Illness: No Allergies verified: YES Precipitated by: No Med list reviewed: YES Alleviated by: nothing at present Immunosuppressed:NO Conclusion / Primary Problem: Pelvic pain Protocol(s) Consulted: Per Nursing Judgement PLAN / INTERVENTION Disposition: Pt requested an appt with Dr. Chris MD had open appts today. Appt given this AM Caller verbalizes understanding of disposition? YES Caller agrees to plan? Yes EVALUATION / FOLLOW-UP documented in this encounter Plan of Treatment Not on filedocumented as of this encounter Visit Diagnoses Not on filedocumented in this encounter
--- OUTSIDE RECORDS SUMMARY | 2022-08-29 12:13 | XMS_ITS | Encounter Summary ---
:1975 Author Organization [place] Address [address] [place] [address] Care Team Providers Name Role Phone Timmy Perez MD Unavailable Reason for Referral - Closed Specialty Diagnoses / Procedures Referred By Contact Refer red To Contact Diagnoses Cervicalgia Zz Rw Phy Therapy Procedures RW PT BILLING [[id number]] [address] [phone] Referral ID Status Reason Start Date Expiration Date Visits Requ ested Visits Authorized [id number] Closed 03/22/2008 09/15/2011 1 1 Reason for Visit Reason Comments PT Daily Visit cervical spine Encounter Details Date Type Department Care Team Description 03/22/2008 [facility] Maryse Siegel PT Theodore rosa Visit Health/Nurse System in [place] Sims PT (cervical spine) Visit Physical Therapy [facility] [address] [place] [address] [place] [address] [address] [address] Social History Tobacco Use Types Packs/Day Years Used Date Smoking Tobacco: Never Alcohol Use Standard Drinks/Week Comments Yes 0 (1 standard drink = 0.6 oz pure alcoho l) Sex Assigned at Date Recorded Not on file documented as of this encounter Progress Notes Maryse Siegel - 03/22/2008 9:44 AM CDT PHYSICAL THERAPY DAILY VISIT NOTES SUBJECTIVE: Since the last visit, the patient reports no YANG's, and she felt much better and less sore. She spent much of the weekend swimming and does not report any increased pain with activities. OBJECTIVE: TREATMENT TODAY CONSISTED OF: THERAPEUTIC PROCEDURES Therapeutic Exercise: 5 minutes Issued written handout(s): scapular retraction with UE in 90/90 positions in standing. 20 reps 1x/day. Pt performed techniques correctly MODALITIES: Contraindications and precautions were reviewed with the patient. Ultrasound: 100% US at 1.3 w/cm2, 1 MHz x 8 minutes to bilateral paraspinals and upper trap. Patientposition: prone. THERAPEUTIC PROCEDURES Manual Therapy: 10 minutes Joint Mobilization: Technique: central PA's and unilateral PA's to C1-4. Grade: II and III. Patient position: prone. Hypomobility noted at all joints, tenderness at C3 ASSESSMENT: Post treatment response: Subjective report of decreased soreness post treatment. Patient demonstrates a excellent understanding of HEP / Self Care. Progress summary: Patient requires continued skilled physical therapy to improve: pain Anticipated goals and expected outcomes: Patient is progressing toward completion of all anticipatedgoals and expected outcomes. PLAN: Continue with prescribed treatment and progress as tolerated. Focus next session will be on: strength of involved joint(s) Total Visit Time: 25 minutes Total Time-Based Code Only Minutes: 23 minutes. Product Management Specialist Present: SONALI Therapist: Maryse Siegel DPT documented in this encounter Plan of Treatment Not on filedocumented as of this encounter Procedures Procedure Name Priority Date/Time Associated Diagnosis Comme nts RW PT BILLING Routine 03/22/2008 9:43 AM CDT Cervicalgia-rehab dx documented in this encounter Visit Diagnoses Diagnosis Cervicalgia-rehab dx - Primary Cervicalgia documented in this encounter Care Teams Lumber Stacker Driver Relationship Specialty Start Date End Date Timmy Perez MD PCP - Obstetrics/Gynecology 03/02/0807/[address] [address] documented as of this encounter
--- OUTSIDE RECORDS SUMMARY | 2022-08-29 12:13 | XMS_ITS | Encounter Summary ---
:1975 Author Organization [facility] Address [address] [place] [address] Care Team Providers Name Role Phone Timmy Perez MD Unavailable Reason for Referral - Closed Specialty Diagnoses / Procedures Referred By Contact Refer red To Contact Diagnoses Cervicalgia Zz Rw Phy Therapy Procedures RW PT BILLING [[id number]] [phone] [phone] Referral ID Status Reason Start Date Expiration Date Visits Requ ested Visits Authorized [id number] Closed 03/30/2008 09/15/2011 1 1 Reason for Visit Reason Comments PT Daily Visit cervical spine Encounter Details Date Type Department Care Team Description 03/30/2008 [facility] Maryse Siegel PT Theodore rosa Visit Health/Nurse System in [place] Sims PT (cervical spine) Visit Physical Therapy [facility] [address] [place] [address] [place] [place] [place] [phone] [address] [place] [phone] Social History Tobacco Use Types Packs/Day Years Used Date Smoking Tobacco: Never Alcohol Use Standard Drinks/Week Comments Yes 0 (1 standard drink = 0.6 oz pure alcoho l) Sex Assigned at Date Recorded Not on file documented as of this encounter Progress Notes Maryse Siegel - 03/30/2008 3:31 PM CDT PHYSICAL THERAPY DAILY VISIT NOTES SUBJECTIVE: Since the last visit, the patient reports no YANG's. She does not notice the pain until 1-2pm in the day while she is at work, and some days she is painfree until pm. She is still having difficulty sleeping at night.Current pain 3/10 OBJECTIVE: TREATMENT TODAY CONSISTED OF: THERAPEUTIC PROCEDURES Therapeutic Exercise: Emphasized the importance of strengthening the postural muscles to decrease her muscle fatigue at the end of her work day. However pt still does Not want to add any strengthening exercises, stating maybe next time. MODALITIES: Contraindications and precautions were reviewed with the patient. Ultrasound: 100% US at 1.3 w/cm2, 1 MHz x 8 minutes to bilateral paraspinals and upper trap. Patientposition: prone. THERAPEUTIC PROCEDURES Manual Therapy: 13 minutes Joint Mobilization: Technique: central PA's and unilateral PA's to C1-4. Grade: II and III. Patient position: prone. Decreased hypomobility and tenderness noted tenderness atC3 ASSESSMENT: Post treatment response: Subjective report of decreased soreness post treatment, pain 0/10. Patient demonstrates a good understanding of HEP / Self Care. Progress summary: Patient requires continued skilled physical therapy to improve: pain, strength Anticipated goals and expected outcomes: Patient is progressing toward completion of all anticipatedgoals and expected outcomes. PLAN: Continue with prescribed treatment and progress as tolerated. Focus next session will be on: strength of involved joint(s) Total Visit Time: 25 minutes Total Time-Based Code Only Minutes: 21 minutes. Bowling Alley Refinisher Present: SONALI Therapist: Maryse Siegel DPT documented in this encounter Plan of Treatment Not on filedocumented as of this encounter Procedures Procedure Name Priority Date/Time Associated Diagnosis Comme nts RW PT BILLING Routine 03/30/2008 3:31 PM CDT Cervicalgia-rehab dx documented in this encounter Visit Diagnoses Diagnosis Cervicalgia-rehab dx - Primary Cervicalgia documented in this encounter Care Teams Obstetrics Tech Relationship Specialty Start Date End Date Timmy Perez MD PCP - Obstetrics/Gynecology 03/02/08/10/[address] [phone] documented as of this encounter
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
--- OUTSIDE RECORDS SUMMARY | 2022-08-29 12:13 | XMS_ITS | Encounter Summary ---
:1975 Author Organization [facility] Address [address] [place] [address] Care Team Providers Name Role Phone Unavailable Primary Care Provider Unavailable Reason for Visit Reason Comments RECHECK Encounter Details Date Type Department Care Team Description 01/02/[address] 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 [employer]AF [employer] [address] [address] [address] [phone] [place] [phone] Social History Tobacco Use Types Packs/Day Years Used Date Smoking Tobacco: Never Alcohol Use Standard Drinks/Week Comments Not Asked 0 (1 standard drink = 0.6 oz pure alcoho l) Sex Assigned at Date Recorded Not on file documented as of this encounter Last Filed Vital Signs Vital Sign Reading Time Taken Comments Blood Pressure 118/86 01/02/2006 9:00 AM CDT Pulse 88 01/02/2006 9:00 AM CDT Temperature - - Respiratory Rate - - Oxygen Saturation - - Inhaled Oxygen Concentration - - Weight 72.6 kg (160 lb) 01/02/2006 9:00 AM CDT Height - - Body Mass Index - - documented in this encounter Progress Notes Timmy Perez - 01/02/2006 12:47 PM CDT Alcon has follow up of severe pelvic/uterine pain of last week. Fluid was seen in the uterus and shewas treated with cleocin and vicodin. She is now feeling much better, no pain. She is concerned that she has been having heavy and painful periods and dyspareunia with almost every encounter. Exam: ext gen and vag are normal Cx and uterus are slightly tender with uterus slightly to the right and anterior. Adnexa are clear with slight right tenderness and none on the left. Dx: pelvic pain resolved Dyspareunia and menometrorrhagia Plan: options are discussed from BC pills to hysterectomy. She is advised of the benefits and risks of each. She will call with any other questions or if she has problems get worse again. Encounter time 20 min, counseling (as in plan) 15 min documented in this encounter Nursing Notes 01/02/2006 9:00 AM CDT >> ARTIS LLANOS 01/02/2006 9:02 am Follow up pelvic pain, finished cleocin,has no further pain documented in this encounter Plan of Treatment Not on filedocumented as of this encounter Visit Diagnoses Diagnosis Other specified symptom associated with female genital organs Excessive or frequent menstruation documented in this encounter
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
--- OUTSIDE RECORDS SUMMARY | 2022-08-29 12:13 | XMS_ITS | Encounter Summary ---
:1975 Author Organization [facility] Address [address] [place] [address] Care Team Providers Name Role Phone Unavailable Primary Care Provider Unavailable Reason for Visit Reason Comments Drug Screen pre uds [employer] Encounter Details Date Type Department Care Team Description 08/04/2004 Office Visit [facility] Health Nurse, [place] [facility] HEALTH EXAM-GROUP System in [place] [facility] Occupational Medicin e [address] [place] [address] [address] [place] [phone] [place] [address] Social History Tobacco Use Types Packs/Day Years Used Date Smoking Tobacco: Never Assessed Sex Assigned at Date Recorded Not on file documented as of this encounter Nursing Notes 08/04/2004 11:15 AM CST >> SOREN HICKS 08/04/2004 3:07 pm 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 documented in this encounter Plan of Treatment Not on filedocumented as of this encounter Visit Diagnoses Diagnosis Health examination of defined subpopulat ion documented in this encounter
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
--- OUTSIDE RECORDS SUMMARY | 2022-08-29 12:13 | XMS_ITS | Encounter Summary ---
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 Pelvic pain and low back day Encounter Details Date Type Department Care Team Description 12/27/2005 Office Visit [facility] Timmy Perez, ABDOM INAL PAIN OTHER SPEC SITE (Primary Dx); System in [place] ACUTE UTERINE INFLAMMATION DIRECTOR OF CASEWORK DEPARTMENT [address] [address] [address] [phone] [place] [id number] Social History Tobacco Use Types Packs/Day Years Used Date Smoking Tobacco: Never Alcohol Use Standard Drinks/Week Comments Not Asked 0 (1 standard drink = 0.6 oz pure alcoho l) Sex Assigned at Date Recorded Not on file documented as of this encounter Last Filed Vital Signs Vital Sign Reading Time Taken Comments Blood Pressure - - Pulse - - Temperature - - Respiratory Rate - - Oxygen Saturation - - Inhaled Oxygen Concentration - - Weight 71.9 kg (158 lb 8 oz) 12/27/2005 11:00 AM CDT Height - - Body Mass Index - - documented in this encounter Progress Notes Timmy Perez - 12/27/2005 11:36 AM CDT Alcon is a 30 year old white female, SAB1, who is having severe pelvic pain. This started as asharp stabbing pain early this morning. She has had episodic pelvic pain for many years. Today she has had no nausea, vomiting, fever, chills, or bladder sx. Work up in the past has been negative. She has had a tubal ligation and was not noted to have pelvic disease at that time. Her periods are heavy but not change in cramping. The pain has subsided some so that she was able to drive to the clinic. Her only other surgery was a D&C with her miscarriage. Her pelvic pains started after that D&C. She has occas dyspareunia. She had 3 spont vag deliveries. 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 PAST SURGICAL HISTORY: No past surgical history on file. CURRENT MEDICATIONS: Current outpatient prescriptions Medication Sig ??? CELEXA 20 MG OR TABS 1 TABLET DAILY ALLERGIES: Erythromycin Family HX: No electrical installation supervisor cancer, no colon cancer REVIEW OF SYSTEMS: Otherwise negative unless specified in HPI. 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 Marital Status: Spouse Name: N/A Number of Children: 3 ??? Years of Education: N/A Occupational History ??? Not on file. Social History Main Topics ??? Tobacco Use: Never ??? Alcohol Use: Not on file ??? Drug Use: No ??? Sexually Active: Yes -- Male partners Control/ Protection: Surgical Other Topics Concern ??? Not on file Social History Narrative ??? No narrative on file PHYSICAL EXAM: This is a well-developed, well-nourished female with discomfort. VITALS: P 82, T 98.8, BP 132/82 Neruo: grossly intact Back: no CVA tenderness ABD: soft, mid lower tenderness, rebound to lower abd, tenderness much less with palpation during straight leg lift,no masses Pelvic: normal ext gen, normal BUS, no lesions, no adenopathy Urethra: normal meatus Vagina: normal, no lesions. Minimal discharge Cervix: no lesions, tender to palpation Uterus: Normal in size with out irregularities. Very tender to palpation, uterosacral ligaments mosttender. anterior. Adnexa: minimally tender with out masses or iregularities, ovaries not enlarged. RV:confirms above with no lesions palpable EXT: no edema, calf tenderness or significant varicosities Assessment: Pelvic pain, very tender uterus Plan: Pelvic ultrasound Pt has ultrasound that finds normal size uterus with thickened endometrium and endometrial fluid. Nofree fluid. Small fibroid in fundus. Ovaries are normal. The pain has decreased by the time the ultrasound is done. Plan: Cleocin 150 mg tid for 5 days Vicodin as needed for pain. Rtn 5 days for follow up documented in this encounter Plan of Treatment Not on filedocumented as of this encounter Visit Diagnoses Diagnosis Abdominal pain, other specified site - P rimary Acute inflammatory disease of uterus, ex cept cervix documented in this encounter
--- OUTSIDE RECORDS SUMMARY | 2022-08-29 12:13 | XMS_ITS | Encounter Summary ---
:1975 Author Organization [facility] Address [address] [place] [address] Care Team Providers Name Role Phone Timmy Perez MD Unavailable Reason for Visit Reason Onset Date Comments Outpatient Therapy 04/14/2008 continuing therapy Encounter Details Date Type Department Care Team Description 04/14/2008 Telephone [facility] Maryse Siegel Ou tpatient Therapy System in [place] [facility] (continuing therapy) Physical Therapy [facility] [address] [place], [place] [address] [place] [address] [phone] (Wo rk) Social History Tobacco Use Types Packs/Day Years Used Date Smoking Tobacco: Never Alcohol Use Standard Drinks/Week Comments Yes 0 (1 standard drink = 0.6 oz pure alcoho l) Sex Assigned at Date Recorded Not on file documented as of this encounter Miscellaneous Notes Telephone Encounter - Maryse Siegel - 04/14/2008 10:39 AM CDT Contacted pt regarding continuing therapy as she canceled her last two appointments due to illness. Pt reported since the last visit she has had only 1 episode of neck pain, but was able to resolve it with the HEP given to her in PT. At this time pt would like to continue independently. documented in this encounter Plan of Treatment Not on filedocumented as of this encounter Visit Diagnoses Not on filedocumented in this encounter Care Teams Clockmaker Relationship Specialty Start Date End Date Timmy Perez MD PCP - Obstetrics/Gynecology 03/02/0807/[address] [address] documented as of this encounter
--- OUTSIDE RECORDS SUMMARY | 2022-08-29 12:13 | XMS_ITS | Encounter Summary ---
:1975 Author Organization [facility] Address [address] [place] [address] Care Team Providers Name Role Phone Unavailable Primary Care Provider Unavailable Encounter Details Date Type Department Care Team Description 01/30/2006 Hospital Pathology [facility] Donny Hawthorne MD System in [address] [address] [place] [address] [phone] (Wo rk) Social History Tobacco Use Types Packs/Day Years Used Date Smoking Tobacco: Never Alcohol Use Standard Drinks/Week Comments Yes 0 (1 standard drink = 0.6 oz pure alcoho l) Sex Assigned at Date Recorded Not on file documented as of this encounter Plan of Treatment Not on filedocumented as of this encounter Procedures Procedure Name Priority Date/Time Associated Diagnosis Comme nts CL AFF SURGICAL Routine 01/30/2006 12:00 AM Resul ts for this PATHOLOGY CDT procedure are i n the results section. documented in this encounter Results SURGICAL PATHOLOGY (01/30/2006 12:00 AM CDT) Component Value Ref Test Analysis Performed At [facility]iatric Method Time Signature Copath Report Patient Name: CHRISTOPHER TY MR#: [id number] Specimen #: [id number] Collected: 01/30/2006 Received: 01/30/2006 Reported: 02/04/2006 15:10 Ordering Phy(s): TIMMY HAWTHORNE SPECIMEN(S): A: Uterus B: Right fimbrea FINAL DIAGNOSIS: A. ??Uterus, resected: ? - ??Cervix: ??Mild acute endocervicitis. ? - ??Endometrium: ??Benign secretory phase endometri um with menstrual changes. ? - ??Myometrium: ??Benign B. ??Right fimbria, resected tissue: ? - ??Benign fallopian tube. Electronically signed out by: Tulio Vidal M.D. CLINICAL HISTORY: Specimen A, uterus. ??Specimen B, right fimbria. ??Pelvic pa in, dysmenorrhea, dyspareunia. GROSS: A. ??The container is labeled with the patient's name and th e source as uterus. ??The 135-gram specimen is up to 100 x 55 x 40 mil limeters. The cervix is 35 x 35 millimeters with a 14 millimeter os. ? ?The specimen was previously bisected and fixed overnight. ??The cervix lofton s several surgical hugo. ??The serosal surface is esparza and smooth. ??T he endocervix appears within normal limits. ??The anterior uterus is up to 22 millimeters with a 3-millimeter esparza-red endometrium, which i s slightly irregular. ??The posterior uterus is up to 24 millimeters wi th a 2-millimeter red endometrium. ??No specific myometrial lesio ns are noted. Anterior and posterior cervix are in blocks 1 and 2. ??Ante rior and posterior endomyometrium are in blocks 3 and 4. ??Additional endometrium is in block 5. B. ??The container is labeled with the patient's name and th e source as right fimbria. ??The esparza-pollack irregular tissue is overall up to 26 x 14 x 10 millimeters. ??The tissue appears to be part of fallopi an tube up to 26 millimeters in length with one rounded apparently closed and an opposite open end. ??There is an area that appears to be fim rita, that is closest to the closed rounded end. ??The tissue is serially sectioned into six portions and three artists' booking representative cross sections ar e submitted in one block. ??(DONNIE/reba ??01/31/06) MICROSCOPIC: A. ??Sections of cervix are benign. ??There is patchy mild a cute endocervicitis which is somewhat unusual. ??Within the endoc ervical portion, there is patchy mild subepithelial acute inflammati on. ??The endometrium is secretory phase with superficial degeneration and hemorrhage, that appears to represent menstrual changes. ??F eatures of hyperplasia are not identified, and there is no evidence of malignancy. The myometrium appears unremarkable. B. ??Sections show portions of benign fallopian tube includi ng fimbria. EB/ja TESTING LAB LOCATION: [address] [address] COLLECTION SITE: Client: [facility] Location: 10 (W) Specimen (Source) Anatomical Collection Method Collection Time Re ceived Time Location / / Volume Laterality 01/30/2006 01/30/2006 3:05 PM CDT Timmy Hawthorne MD LABORATORY Performing Organization Address City/State/ZIP Code Phon e Number [place] documented in this encounter Visit Diagnoses Not on filedocumented in this encounter
--- OUTSIDE RECORDS SUMMARY | 2022-08-29 12:13 | XMS_ITS | Encounter Summary ---
:1975 Author Organization [facility] Address [address] [place] [address] Care Team Providers Name Role Phone Unavailable Primary Care Provider Unavailable Reason for Visit Reason Comments Physical Encounter Details Date Type Department Care Team Description 06/05/2006 Office Visit [facility] Timmy Perez MD ROUTINE MEDICAL EXAM; System in [facility] SECUNDU M ATRIAL SEPT DEF DEHYDROGENATION OPERATOR HEAD [address] [address] [place], [place] [phone] (Wo rk) Social History Tobacco Use Types Packs/Day Years Used Date Smoking Tobacco: Never Alcohol Use Standard Drinks/Week Comments Yes 0 (1 standard drink = 0.6 oz pure alcoho l) Sex Assigned at Date Recorded Not on file documented as of this encounter Last Filed Vital Signs Vital Sign Reading Time Taken Comments Blood Pressure 100/58 06/05/2006 10:00 AM CDT Pulse 80 06/05/2006 10:00 AM CDT Temperature - - Respiratory Rate - - Oxygen Saturation - - Inhaled Oxygen Concentration - - Weight 75.8 kg (167 lb) 06/05/2006 10:00 AM CDT Height 173.4 cm (5' 8.25) 06/05/2006 10:00 AM CDT Body Mass Index 25.21 06/05/2006 10:00 AM CDT documented in this encounter Progress Notes Timmy Perez - 06/05/2006 10:46 AM CDT Alcon is a 30 year old white female, SAB1, who has had a hysterectomy and is here for her annual exam. She has been pelvic pain free until 2 weeks ago when she had severe right pelvic pain and was found to have a ruptured right ovarian cyst. The pain is now gone. She is not having any bowel or bladder sx. Alcon is having heart surgery in 2 weeks to close the atrial septal defect. She is having marrital difficulties with abusing alcohol. She feels safe but also will not continue to stay in a relationship that is not good. She continues to have dyspareunia and only has intercourse about once a month. She has stopped her Celexa and has not felt any different. PAST MEDICAL HISTORY: Past Medical History Diagnosis Date ??? EXCESSIVE MENSTRUATION 01/31/06 Hospitalized ??? HEMORRHAGE COMPLIC PROCEDURE ??? ACUTE POSTHEMORRHAGIC ANEMIA PAST SURGICAL HISTORY: Past Surgical History Procedure Date ??? indian blanket weaver procedure date: vag del. ??? 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 indian blanket weaver procedure date: 2000 tubal ligation ??? indian blanket weaver procedure date: 1994 D&C ??? Vaginal hysterectomy 01/30/06 CURRENT MEDICATIONS: Current outpatient prescriptions Medication Sig ??? ALBUTEROL SULFATE IN SOLR None Entered ??? ADVAIR DISKUS IN None Entered ??? MOTRIN 600 MG OR TABS 1 TABLET po Q 6 hr prn pain, take with food ALLERGIES: Erythromycin Family HX: Family History Problem Relation ??? Diabetes No family hx of ??? Hypertension No family hx of ??? Stroke No family hx of ??? Breast CA No family hx of ??? Colon CA No family hx of ??? Alzheimers No family hx of ??? Cancer No family hx of ??? Heart No family hx of ??? Thyroid No family hx of reviewed 06/05/2006 REVIEW OF SYSTEMS: Otherwise negative unless specified in HPI. NEUROLOGIC: negative EYES: negative ENT: negative GI: negative BREAST: negative : negative WAGE HAND: as above CV: as above PULMONARY: negative MUSCULOSKELETAL: negative PSYCH: as above SKIN: negative Soc Hx: History Social History ??? Marital Status: Spouse Name: N/A Number of Children: 3 ??? 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 Tobacco Use: Never ??? Alcohol Use: Yes ??? Drug Use: No ??? Sexually Active: Yes -- Male partners Control/ Protection: Surgical Other Topics Concern ??? Blood Transfusions Yes 1995 ??? Caffeine No ??? Sleep Concern Yes ??? Stress Concern No ??? Weight Concern No ??? Diet No ??? Back Care No ??? Exercise Yes ??? Seat Belt Yes ??? Self Exams No Social History Narrative ??? No narrative on file PHYSICAL EXAM: This is a well-developed, well-nourished female in no apparent distress. VITALS: as above Neruo: grossly intact EYES: JUAN, EOM's intact. ENT: oral cavity normal, no neck nodes, thyroid not enlarged, neck supple Lung CTA, no wheezing, easy respairations Heart: RRR, S1 and S2 clear, Systolic murmur 2/6 Back: no spinal or CVA tenderness Breast: soft, nontender, no mass or axillary lymphadenopathy or discharge. ABD: soft, nontender, no masses Pelvic: normal ext gen, normal BUS, no lesions, no adenopathy Urethra: normal meatus Vagina: normal, no lesions. normal pelvic muscle tone. Cervix and Uterus: surgically absent Adnexa: nontender with out masses or iregularities, ovaries not enlarged. RV:confirms above with no lesions palpable EXT: no edema, calf tenderness or significant varicosities Skin: no lesions of concern Assessment: Annual exam Atrial septal defect Marrital stress Plan: Continue with plan for heart surgery, Alcon has discussed her depression history and family situation with the cardiologists. Will call if depression sx become bad again. documented in this encounter Nursing Notes 06/05/2006 10:00 AM CDT >> ARTIS LLANOS 06/05/2006 10:10 am Vignesh,was seen in ER on 05/21/2006, for ruptured ovarian cyst, has questions about this,is having heart surgery 06/20/2006 at [place],has atrial septal defect documented in this encounter Plan of Treatment Not on filedocumented as of this encounter Visit Diagnoses Diagnosis Routine general medical examination at a health care facility Ostium secundum type atrial septal defec t documented in this encounter
--- OUTSIDE RECORDS SUMMARY | 2022-08-29 12:13 | XMS_ITS | Encounter Summary ---
:1975 Author Organization [facility] Address [address] [place] [address] Care Team Providers Name Role Phone Unavailable Primary Care Provider Unavailable Encounter Details Date Type Department Care Team Description 12/27/2005 Allied Health/Nurse [facility] AB DOMINAL PAIN OTHER Visit System in [place] [facility] [address] [place] [address] Social History Tobacco Use Types Packs/Day Years Used Date Smoking Tobacco: Never Alcohol Use Standard Drinks/Week Comments Not Asked 0 (1 standard drink = 0.6 oz pure alcoho l) Sex Assigned at Date Recorded Not on file documented as of this encounter Plan of Treatment Not on filedocumented as of this encounter Procedures Procedure Name Priority Date/Time Associated Diagnosis Comme [facility] PELVIC NON-OB, Routine 12/27/2005 Abdominal Pain Other Results for this COMPLETE Spec Site procedure are i n the results section . documented in this encounter Results SONO PELVIS COMPLETE (12/27/2005) Anatomical Region Laterality Modality Other Narrative 12/27/2005 PATIENT NAME: ??CHRISTOPHER ZAMORA DATE OF : ??1975 DATE OF SERVICE: ??12/27/2005 ORDERING PHYSICIAN: ?NENA PATIENT STATUS: ??OUTPT PELVIC ULTRASOUND: HISTORY: Severe pain in the pelvis. Both transabdominal and endovaginal appr oaches were used. The endovaginal to better evaluate the ovari es. The approximate dimensions of the uterus are 88 x 48 x 62 millimeters. The urinary bladder was not full. The thickness of the endometrium is 27 millimeters. There is a fibroid in the anterior portion of the fundus. Its appr oximate maximum dimension is 27 millimeters. No fluid in the cul-de-sac. The right ov daniel is very heterogeneous. Several follicles are see n within it. There is an exophytic mass projecting from the right ovary. This could be a complex cyst from the right ovary. The a pproximate maximum dimension of the normal appearing right ovarian tissue is 48 millimeters. The nearby and contiguous a bnormal tissue has a maximum dimension of about 48 millimeter s. It may contain a hemorrhagic cyst. The left ovary looks n ormal. Its maximum dimension is about 29 millimeters. There is fluid within the endometrial canal. None in the cul-de-sa c, however. Timmy Foster M.D./[facility] Timmy Perez MD SPECIAL IMAGING [employer]UDIES documented in this encounter Visit Diagnoses Diagnosis Abdominal pain, other specified site documented in this encounter
--- OUTSIDE RECORDS SUMMARY | 2022-08-29 12:13 | XMS_ITS | Encounter Summary ---
:1975 Author Organization [facility] Address [address] [place] [address] Care Team Providers Name Role Phone Unavailable Primary Care Provider Unavailable Reason for Visit Reason Comments Pre-Op Exam Encounter Details Date Type Department Care Team Description 01/28/2006 Office Visit [facility] Timmy Perez, PREOP EXAM OTHER UNSPECIFIED; System in [place] DYSMENORRHEA PEDIATRIC PHYSICIAN ASSISTANT [address] [address] [address] [phone] [place] [id number] Social History Tobacco Use Types Packs/Day Years Used Date Smoking Tobacco: Never Alcohol Use Standard Drinks/Week Comments Yes 0 (1 standard drink = 0.6 oz pure alcoho l) Sex Assigned at Date Recorded Not on file documented as of this encounter Last Filed Vital Signs Vital Sign Reading Time Taken Comments Blood Pressure 102/68 01/28/2006 3:00 PM CDT Pulse 76 01/28/2006 3:00 PM CDT Temperature - - Respiratory Rate - - Oxygen Saturation - - Inhaled Oxygen Concentration - - Weight 72.6 kg (160 lb) 01/28/2006 3:00 PM CDT Height 174 cm (5' 8.5) 01/28/2006 3:00 PM CDT Body Mass Index 23.97 01/28/2006 3:00 PM CDT documented in this encounter Progress Notes Timmy Perez - 01/28/2006 3:23 PM CDT Alcon is a 30 year old white female, SAB1, who is scheduled for TVH because of episodic severepelvic pain and dysmenorrhea. She has noted dyspareunia with every episode of intercourse in the last few months. She is now not sexually active because of this. She has had a tubal ligation. The pain is not associated with bowel or bladder sx. Blue Leather Sorter HX: no abnormal paps, no infections, no incontinence Her cycles are regular. PAST MEDICAL HISTORY: No past medical history on file. PAST SURGICAL HISTORY: Past Surgical History Procedure Date ??? iv therapy nurse procedure date: [id number] vag del. ??? Rw ferry boat captain (abstracted) pneumonia several times ??? iv therapy nurse procedure date: 2000 tubal ligation ??? iv therapy nurse procedure date: 1994 D&C CURRENT MEDICATIONS: Current outpatient prescriptions Medication Sig ??? CELEXA 20 MG OR TABS 1 TABLET DAILY ALLERGIES: Erythromycin Family HX: Family History Problem [...] ??? Thyroid No family hx of reviewed 01/28/2006 REVIEW OF SYSTEMS: Otherwise negative unless specified in HPI. 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 Marital Status: Spouse Name: N/A Number of Children: N/A ??? 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 Tobacco Use: Never ??? Alcohol Use: Yes ??? Drug Use: No ??? Sexually Active: Yes -- Male partners Control/ Protection: Surgical Other Topics Concern ??? Blood Transfusions Yes 1994 ??? Caffeine No ??? Sleep Concern No ??? Stress Concern No ??? Weight Concern [...] respairations Heart: RRR, S1 and S2 clear, no murmur Back: no spinal or CVA tenderness Breast: soft, nontender, no mass or axillary lymphadenopathy or discharge. ABD: soft, nontender, no masses Pelvic: normal ext gen, normal BUS, no lesions, no adenopathy Urethra: normal meatus Vagina: normal, no lesions. Cervix: normal with out lesion or discharge, moderate tenderness to motion Uterus: Normal in size with out irregularities, moderate tenderness to Palpation, anterior. Adnexa: nontender with out masses or iregularities, ovaries not enlarged. EXT: no edema, calf tenderness or significant varicosities Skin: no lesions of concern Assessment: Pelvic pain, dymenorrhea dyspareunia Plan: total vaginal hysterectomy documented in this encounter Nursing Notes 01/28/2006 3:00 PM CDT >> ARTIS LLANOS 01/28/2006 3:16 pm Pre op TVH of 01/30/2006,feels ok,Pain Questionnaire: Is your visit today because of Pain? NO documented in this encounter Plan of Treatment Not on filedocumented as of this encounter Procedures Procedure Name Priority Date/Time Associated Comments Diagnosis ABO/RH TYPE & SCREEN Routine 01/28/2006 3:51 PM Preop Exam Oth er Results for this CDT Unspecified procedure are in Dysmenorrhea the results section. HCL HEMOGLOBIN Routine 01/28/2006 3:51 PM Preop Exam Other Res ults for this NONLAB CDT Unspecified procedure are in Dysmenorrhea the results section. HCL POTASSIUM Routine 01/28/2006 3:51 PM Preop Exam Other Resu lts for this CDT Unspecified procedure are in Dysmenorrhea the results section. HCL CREATININE Routine 01/28/2006 3:51 PM Preop Exam Other Res ults for this CDT Unspecified procedure are in Dysmenorrhea the results section. HC VENOUS COLLECTION Routine 01/28/2006 3:46 PM Preop Exam Oth er CDT Unspecified Dysmenorrhea documented in this encounter Results ABO/RH TYPE & SCREEN (01/28/2006 3:51 PM CDT) Analysis Performed At [facility] logist Time Signature ABO/Rh(D) A [facility] ABO/Rh(D) Pos [facility] Antibody Neg [facility] Screen [facility] Specimen 01/31/2006 [facility] Expires [facility] Armband Number [id number] [facility] Specimen Anatomical Collection Method Collection Time Receive d Time (Source) Location / / Volume Laterality 01/28/2006 3:51 PM 6 3:52 CDT PM CDT Timmy Perez MD LABORATORY Performing Organization Address City/State/ZIP Code Phon e Number [facility] [address] POTASSIUM (01/28/2006 3:51 PM CDT) athologist Signature Potassium 3.4 3.4 - 5.3 [facility] mmol/L [facility] Specimen Anatomical Collection Method Collection Time Receive d Time (Source) Location / / Volume Laterality 01/28/2006 3:51 PM 6 3:52 CDT PM CDT Timmy Perez MD LABORATORY Performing Organization Address City/[facility]/ZIP Code Phon e Number [facility] [address] CREATININE (01/28/2006 3:51 PM CDT) athologist Signature Creatinine 0.66 0.60 - [facility] 1.30 mg/dL [facility] GFR Estimate >90 >60 [facility] mL/min/1.7 [facility] m2 GFR Estimate If >90 >60 [facility] Black mL/min/1.7 [facility] m2 Specimen Anatomical Collection Method Collection Time Receive d Time (Source) Location / / Volume Laterality 01/28/2006 3:51 PM 6 3:52 CDT PM CDT Timmy Perez MD LABORATORY Performing Organization Address City/State/ZIP Code Phon e Number [facility] [address] HGB (01/28/2006 3:51 PM CDT) P athologist Signature Hemoglobin 11.7 11.7 - 15.7 [facility] g/dL [facility] Specimen Anatomical Collection Method Collection Time Receive d Time (Source) Location / / Volume Laterality 01/28/2006 3:51 PM 6 3:52 CDT PM CDT Timmy Perez MD LABORATORY Performing Organization Address City/State/ZIP Code Phon e Number [facility] [address] documented in this encounter Visit Diagnoses Diagnosis Preoperative examination, unspecified Dysmenorrhea documented in this encounter
--- OUTSIDE RECORDS SUMMARY | 2022-08-29 12:13 | XMS_ITS | Encounter Summary ---
:1975 Author Organization [facility] Address [address] [place] [address]. [place] [address] Care Team Providers Name Role Phone Unavailable Primary Care Provider Unavailable Encounter Details Date Type Department Care Team Description 10/22/2007 Psyche [facility] Kacey Harris GENERALIZED ANXIETY DIS; System in [facility] REC URR DEPR PSYCH-SEVERE Psychology System in [place] [address] [place] [address] [address] [place], [place] [address] (Wo rk) Social History Tobacco Use Types Packs/Day Years Used Date Smoking Tobacco: Never Alcohol Use Standard Drinks/Week Comments Yes 0 (1 standard drink = 0.6 oz pure alcoho l) Sex Assigned at Date Recorded Not on file documented as of this encounter Progress Notes Kacey Harris - 10/22/2007 9:34 AM CST PROGRESS NOTE Alcon is a 32 year old female seen for Individual Therapy. Session length: 50 minutes DIAGNOSIS: Encounter Diagnoses Code Name Primary? Qualifier ??? 300.02 GENERALIZED ANXIETY DIS ??? 296.33 RECURR DEPR PSYCH-SEVERE Current outpatient prescriptions Medication Sig ??? MOTRIN 600 MG OR TABS 1 TABLET po Q 6 hr prn pain, take with food ??? ALBUTEROL SULFATE IN SOLR None Entered ??? ADVAIR DISKUS IN None Entered S: Alcon comes about 5 minutes late for her appointment today. She states that she is quite tired asshe had a relatively sleepless night last night. She says that her week has been quite bad and, in fact, she had to go home early from work on Saturday. She did not want to go to work on Saturday but was able to go and continues to go the rest of this week. She states that she was trying to go off of herCelexa and has been feeling very depressed. She did restart the Celexa on Saturday, although she has not felt the benefit of it as of yet. She continues to struggle with the idea of taking medication fordepression and I educate her on the possibility of going off of it or using it when needed. However,I noted that in order to do that it would be very important for her to become self aware of her own signals that she is going into a depressive episode and to work on that immediately. She was able to verbalize that she has been quite withdrawn socially and wants to sleep all the time. She states thatruperto has been withdrawn socially since about July but that it recently became worse. She denies any suicidal ideation. She states that when she begins to feel depressed she feels worthless as an employee, a , and a mother. She obviously has very negative self talk and we discussed ways of changing this. Overall Alcon???s mood is fairly depressed but she is able to continue to go to work and care for her children. O: Alcon appears tired and lethargic today. Her psychomotor movements are quite slow and she is quite slumped in her chair. Her affect is flat and depressed in the beginning of the session, although she does become somewhat brighter and more talkative towards the end of the session. She is able to be engaged throughout the session. She has difficulty maintaining eye contact. A: Alcon appears to have increased depressive symptoms due to her stopping her Celexa. She did restart it and I encouraged her to see her doctor in [place] about either increasing her dosage or perhaps trying a different antidepressant, as she feels that the Celexa is not working as well now as it has in the past. I also recommend to Alcon that she think about her very early signs that she is going into a depression and to use this as a way to combat her episodes. I will also continue to challenge her negative self talk. P: Continue to meet weekly. Kacey Harris, MILLINERY SALESPERSON, [employer] documented in this encounter Plan of Treatment Not on filedocumented as of this encounter Visit Diagnoses Diagnosis Generalized anxiety disorder Major depressive disorder, recurrent epi sode, severe, without mention of psychotic behavior documented in this encounter
--- OUTSIDE RECORDS SUMMARY | 2022-08-29 12:13 | XMS_ITS | Encounter Summary ---
:1975 Author Organization [facility] Address [address] [place] [address] Care Team Providers Name Role Phone Unavailable Primary Care Provider Unavailable Reason for Visit Reason Comments Schedule Surgery sched. over the phone,pre op with kelby Encounter Details Date Type Department Care Team Description 01/07/2006 [facility] Timmy Perez, Sched [facility] Surgery Health/Nurse System in [place] (sched. over the Visit [employer] UNIT OPERATOR [facility] phone,pr... [address] [address] [address] [phone] [place] [id number] Social History Tobacco Use Types Packs/Day Years [...]
--- OUTSIDE RECORDS SUMMARY | 2022-08-29 12:13 | XMS_ITS | Encounter Summary ---
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 Forgot to discuss increased fatigue,no energy. Going to bed at 7pm. Getting sweats and having palms start sweating for no apparent reason. She is coming in on 03/16 for lab and would like any additional labs ordered. documented in this encounter Plan of Treatment Not on filedocumented as of this encounter Visit Diagnoses Diagnosis Fatigue - Primary Other malaise and fatigue documented in this encounter Care Teams Court Administrator Relationship Specialty Start Date End Date Timmy Perez MD PCP - Obstetrics/Gynecology 03/02/0807/[address] [place] [address] documented as of this encounter
--- OUTSIDE RECORDS SUMMARY | 2022-08-29 12:13 | XMS_ITS | Encounter Summary ---
:1975 Author Organization [facility] Address [address] [place] [address] Care Team Providers Name Role Phone Unavailable Primary Care Provider Unavailable Reason for Visit Reason Comments Fatigue fatigue,chills all over body aches x 5 days. Encounter Details Date Type Department Care Team Description 02/27/[address] [facility] Chinedu Schmitz Acute Sin usitis, Unspecified (Primary Dx); System in [place] Yobany MD [facility] [address] [place], [place] [address] [address] [place], [place] [phone] Social History Tobacco Use Types Packs/Day Years Used Date Smoking Tobacco: Never Alcohol Use Standard Drinks/Week Comments Yes 0 (1 standard drink = 0.6 oz pure alcoho l) Sex Assigned at Date Recorded Not on file documented as of this encounter Last Filed Vital Signs Vital Sign Reading Time Taken Comments Blood Pressure 112/60 02/27/2008 2:15 PM CDT Pulse 60 02/27/2008 2:15 PM CDT Temperature 36.7 ??C (98.1 ??F) 02/27/2008 2:15 PM CDT Respiratory Rate - - Oxygen Saturation - - Inhaled Oxygen Concentration - - Weight 76.7 kg (169 lb 2 oz) 02/27/2008 2:15 PM CDT Height 175.3 cm (5' 9) 02/27/2008 2:15 PM CDT Body Mass Index 24.98 02/27/2008 2:15 PM CDT documented in this encounter Progress Notes Chinedu Schmitz MD - 02/27/2008 2:16 PM CDT SUBJECTIVE: Alcon A Noah 32 year old female who complains of chills, fever, fatigue, myalgias and dry cough of moderate severity persisting for 5 days without modifying factors. She denies other contributing symtoms on ROS of eyes, ENT, Resp, CV or GI. Medications reviewed. Objective:Blood pressure 112/60, pulse 60, temperature 98.1 ??F (36.7 ??C), height 5' 9 (1.753 m), weight 169 lb 2 oz (76.715 kg), last menstrual period Hysterectomy. The patients general appearance is well nourished well developed without apparent distress. Patient exhibits stable mood, affect, judgment, insight and orientation during conversation. External ears nose are within normal limits. Normal lips teeth and gums. Neck is grossly normal without obvious thyroid abnormality. Skin is without cyanosis and of normal color. No focal neurological deficits noted on gross inspection.ENT:Normal external ears and nose . Normal canals and TM's. Normal lips teeth and gums and purulent post nasal drip noted and Chest wall normal to inspection and palpation. Good excursion bilaterally. Lungs clear to auscultation. Good air movement bilaterally without rales, wheezes, or rhonchi. Regular rate and rhythm. S1 and S2 normal, no murmurs, clicks, gallops or rubs. No edema or JVD. ASSESSMENT: Encounter Diagnoses Code Name Primary? Qualifier ??? 461.9 Acute Sinusitis, Unspecified Yes Plan: CELEXA 20 MG OR TABS, CBC WITH PLATELETS, DIFF, MONO HETEROPHILE, SEPTRA DS 800-160 MG OR TABS ??? 780.79B Fatigue Plan: CELEXA 20 MG OR TABS, CBC WITH PLATELETS, DIFF, MONO HETEROPHILE, SEPTRA DS 800-160 MG OR TABS Call or return to clinic prn if these symptoms worsen or fail to improve as anticipated. documented in this encounter Plan of Treatment Not on filedocumented as of this encounter Procedures Procedure Name Priority Date/Time Associated Diagnosis Comme nts CL AFF CBC WITH Routine 02/27/2008 2:18 PM Acute Sinusitis, Re sults for this PLATELETS, DIFF CDT Unspecified procedure are in Fatigue the results section. HCL MONO TEST Routine 02/27/2008 2:18 PM Acute Sinusitis, Resu lts for this CDT Unspecified procedure are in Fatigue the results section. documented in this encounter Results MONO HETEROPHILE (02/27/2008 2:18 PM CDT) [employer] Method Time Signature Mononucleosis Negative NEG [facility] Specimen Anatomical Collection Method Collection Time Receive d Time (Source) Location / / Volume Laterality 02/27/2008 2:18 PM 8 2:19 CDT PM CDT Chinedu Schmitz MD LABORATORY Performing Organization Address City/State/ZIP Code Phon e Number [facility] [address] CBC WITH PLATELETS, DIFF (02/27/2008 2:18 PM CDT) [employer] gist Method Time Signature WBC 8.3 4.0 - [facility] 11.0 [facility] 10e9/L RBC Count 4.94 3.8 - 5.2 [facility] 10e12/L [facility] Hemoglobin 14.9 11.7 - [facility] 15.7 g/dL [facility] Hematocrit 44.1 35.0 - [facility] 47.0 % [facility] MCV 89 78 - 100 [facility] fl [facility] MCH 30.2 26.5 - [facility] 33.0 pg [facility] MCHC 33.8 31.5 - [facility] 36.5 g/dL [facility] RDW 14.3 10.0 - [facility] 15.0 % [facility] Platelet Count 168 150 - 450 [facility] 10e9/L [facility] Diff Method Automated [facility] Method [facility] % Neutrophils 61 40 - 75 % [facility] % Lymphocytes 29 20 - 48 % [facility] % Monocytes 6 0 - 12 % [facility] % Eosinophils 3 0 - 6 % [facility] % Basophils 1 0 - 2 % [facility] Absolute 5.0 1.6 - 8.3 [facility] Neutrophil 10e9/L [facility] Absolute 2.4 0.8 - 5.3 [facility] Lymphocytes 10e9/L [facility] Absolute 0.5 0.0 - 1.3 [facility] Monocytes 10e9/L [facility] Absolute 0.2 0.0 - 0.7 [facility] Eosinophils 10e9/L [facility] Absolute 0.1 0.0 - 0.2 [facility] Basophils 10e9/L [facility] Specimen Anatomical Collection Method Collection Time Receive d Time (Source) Location / / Volume Laterality 02/27/2008 2:18 PM 8 2:19 CDT PM CDT Chinedu Schmitz MD LABORATORY Performing Organization Address City/State/ZIP Code Phon e Number [facility] [address] documented in this encounter Visit Diagnoses Diagnosis Acute sinusitis, unspecified - Primary Fatigue Other malaise and fatigue documented in this encounter
--- OUTSIDE RECORDS SUMMARY | 2022-08-29 12:13 | XMS_ITS | Encounter Summary ---
:1975 Author Organization [facility] Address [address] [place] [address] Care Team Providers Name Role Phone Unavailable Primary Care Provider Unavailable Encounter Details Date Type Department Care Team Description 01/31/[address] [facility] Yuniel Perez MD System in [address] [place] [address] [phone] Social History Tobacco Use Types Packs/Day Years Used Date Smoking Tobacco: Never Alcohol Use Standard Drinks/Week Comments Yes 0 (1 standard drink = 0.6 oz pure alcoho l) Sex Assigned at Date Recorded Not on file documented as of this encounter Plan of Treatment Not on filedocumented as of this encounter Procedures Procedure Name Priority Date/Time Associated Comments Diagnosis CL AFF CBC WITH Routine 01/31/2006 6:16 AM Result s for this PLATELETS CDT procedure are i n the results section. HCL POTASSIUM Routine 01/31/2006 6:16 AM Results for this CDT procedure are i n the results section. HCL CREATININE Routine 01/31/2006 6:16 AM Results for this CDT procedure are i n the results section. documented in this encounter Results POTASSIUM (01/31/2006 6:16 AM CDT) P athologist Signature Potassium 4.3 3.4 - 5.3 [facility] mmol/L [facility] Specimen Anatomical Collection Method Collection Time Receive d Time (Source) Location / / Volume Laterality 01/31/2006 6:16 AM 6 6:39 CDT AM CDT Timmy Perez MD LABORATORY Performing Organization Address City/State/ZIP Code Phon e Number [facility] [address] CREATININE (01/31/2006 6:16 AM CDT) P athologist Signature Creatinine 0.61 0.60 - [facility] 1.30 mg/dL [facility] GFR Estimate >90 >60 [facility] mL/min/1.7 [facility] m2 GFR Estimate If >90 >60 [facility] Black mL/min/1.7 [facility] m2 Specimen Anatomical Collection Method Collection Time Receive d Time (Source) Location / / Volume Laterality 01/31/2006 6:16 AM 6 6:39 CDT AM CDT Timmy Perez MD LABORATORY Performing Organization Address City/Va Hospital/ZIP Code Phon e Number [facility] [address] (ABNORMAL) CBC WITH PLATELETS (01/31/2006 6:16 AM CDT) Analysis Performed At Patho logist Time Signature WBC 13.5 (H) 4.0 - 11.0 [facility] 10e9/L [facility] RBC Count 3.93 3.8 - 5.2 [facility] 10e12/L [facility] Hemoglobin 10.0 (L) 11.7 - [facility] 15.7 g/dL [facility] Hematocrit 30.8 (L) 35.0 - [facility] 47.0 % [facility] MCV 78 78 - 100 [facility] fl [facility] MCH 25.4 (L) 26.5 - [facility] 33.0 pg [facility] MCHC 32.4 32.0 - [facility] 36.0 g/dL [facility] RDW 16.7 (H) 10.0 - [facility] 15.0 % [facility] Platelet Count 199 150 - 450 [facility] 10e9/L [facility] Specimen Anatomical Collection Method Collection Time Receive d Time (Source) Location / / Volume Laterality 01/31/2006 6:16 AM 6 6:39 CDT AM CDT Timmy Perez MD LABORATORY Performing Organization Address City/State/ZIP Code Phon e Number [facility] [place] [facility] [address] documented in this encounter Visit Diagnoses Not on filedocumented in this encounter
--- OUTSIDE RECORDS SUMMARY | 2022-08-29 12:13 | XMS_ITS | Encounter Summary ---
:1975 Author Organization [facility] Address [address] [place] [address] Care Team Providers Name Role Phone Unavailable Primary Care Provider Unavailable Encounter Details Date Type Department Care Team Description 05/21/2006 Hospital Laboratory [facility] Chinedu Estes V System in [facility] [address] [place] [address] [place] [address] [place], [place] [address] (Wo rk) Social History [...] Date/Time Associated Diagnosis Comme nts CL AFF MICRO Routine 05/21/2006 9:08 PM Results f or this EXAM-URINE CDT procedure are i n the results section. documented in this encounter Results (ABNORMAL) MICRO EXAM-URINE (05/21/2006 9:08 PM CDT) [facility] Method Time Signature WBC Urine O - 2 0 - 2 [facility] /HPF [facility] RBC Urine 2-5 (A) 0 - 2 [facility] /[facility] Squamous EPI Moderate (A) FEW /LPF [facility] Bacteria Urine Few (A) NEG /HPF [facility] Comment NO CULTURE [facility] PER PROTOCOL [facility] Specimen Anatomical Collection Method Collection Time Receive d Time (Source) Location / / Volume Laterality 05/21/2006 9:08 PM 9:15 CDT PM CDT Chinedu Espinoza MD LABORATORY Performing Organization Address City/State/ZIP Code Phon e Number [facility] [place] [facility] [address] documented in this encounter Visit Diagnoses Not on filedocumented in this encounter
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
--- OUTSIDE RECORDS SUMMARY | 2022-08-29 12:13 | XMS_ITS | Encounter Summary ---
:1975 Author Organization [facility] Address [address] [place] [address] Care Team Providers Name Role Phone Timmy Perez MD Unavailable Yung Madrigal MD Unavailable Unavailable Frw, None Primary Care Provider Unavailable Winston Villatoro OD Unavailable Apple Sykes MD Primary Care Provider Westley Bates MD Unavailable GeorginaAlessandra APRN SYSTEMS ANALYST Primary Care Provider Serum, Clara Garland MD Primary Care Provider Serum, Clara Garland MD Unavailable [phone] Serum, Clara Garland MD Unavailable [phone] Denise Woodson Ra, APRN SYSTEMS ANALYST Unavailable [phone] Denise Woodson Ra, APRN SYSTEMS ANALYST Primary Care Provider [phone] Encounter Details Date Type Department Care Team Description 01/31/2006 [facility] [place] Timmy marsh MD [place] SERVICES ADVISOR [address] [address] [place] [address] [phone] (Wo rk) Social History Tobacco Use Types [...] on filedocumented in this encounter Care Teams Leader Tier Relationship Specialty Start Date End Date Timmy Perez MD PCP - 03/02/08 08/07/15 [facility] Obstetrics/Gynecology [address] [id number] Yung Madrigal MD PCP - Orthopaedics Orthopedics 08/26/12 RETIRED Frw, None PCP - General Family Practice 08/26/12 05/03/13 Winston Villatoro OD PCP - Ophthalmology Ophthalmology 02/11/13 [facility] [address] [facility] [address] [place] [address] Apple Sykes MD PCP - General Family Practice 05/04/13 10/25/16 [address] [facility] [address] [place], [place] [id number] Westley Bates MD PCP - ENT Otolaryngology 05/14/13 07/28/18 XXX RETIRED XXX [address] [facility] [address] [place], [place] [id number] Alessandra Erickson PCP - General Nurse Practitioner 10/26/16 02/06/17 BARRERA Serra SYSTEMS ANALYST [address] [facility] [place] [id number] Clara Cornell PCP - General Internal Medicine 02/07/17 09/20/20 MD Dada Clara Cornell PCP - Assigned PCP 01/17/17 11/18/18 MD Dada [facility] [address] [place] [address] Denise Woodson Ra, PCP - General Family Practice 09/21/20 SENIOR TAX ACCOUNTANT SYSTEMS ANALYST [id number] [place] [place] [id number] Clara Cornell Assigned PCP 01/17/17 07/16/20 MD Dada [address] [address] Denise Woodson Ra, Assigned PCP 07/17/20 SENIOR TAX ACCOUNTANT SYSTEMS ANALYST [address] [place] [id number] documented as of this encounter
--- OUTSIDE RECORDS SUMMARY | 2022-08-29 12:13 | XMS_ITS | Encounter Summary ---
:1975 Author Organization [facility] Address [address] [place] [address] Care Team Providers Name Role Phone Timmy Perez MD Unavailable Yung Madrigal MD Unavailable Unavailable Frw, None Primary Care Provider Unavailable Winston Villatoro OD Unavailable Apple Sykes MD Primary Care Provider Westley Bates MD Unavailable GeorginaAlessandra APRN SALES AND SERVICE TECHNICIAN Primary Care Provider [phone] Serum, Clara Garland MD Primary Care Provider Serum, Clara Garland MD Unavailable [phone] Serum, Clara Garland MD Unavailable [phone] Denise Woodson Ra, APRN SALES AND SERVICE TECHNICIAN Unavailable [phone] Denise Woodson Ra, APRN [facility] Primary Care Provider [phone] Encounter Details Date Type Department Care Team Description 01/30/2006 [facility] in [place], Inpatie nt Provider [facility] D e[facility] [address] [place] [address] Social History Tobacco Use Types Packs/Day Years Used Date Smoking Tobacco: Never Smokeless Tobacco: Never Alcohol Use Standard Drinks/Week Comments Not Currently 0 (1 standard drink = 0.6 oz pure alcoho l) minimal Sex Assigned at Date Recorded Not on file documented as of this encounter Progress Notes Timmy Perez - 02/01/2006 2:41 PM CDT PROCEDURE/OPERATIVE REPORT Date of Procedure: 01/30/06 PREOPERATIVE DIAGNOSES: 1. Dysmenorrhea. 2. Excessive menses. 3. Dyspareunia. 4. Pelvic pain. POSTOPERATIVE DIAGNOSIS: 1. Dysmenorrhea. 2. Excessive menses. 3. Dyspareunia. 4. Pelvic pain. PROCEDURE: TOTAL VAGINAL HYSTERECTOMY. SURGEON: Chris RETAIL LOSS PREVENTION INVESTIGATOR: Radha ANESTHESIA: Spinal ESTIMATED BLOOD LOSS: 100 milliliters. COMPLICATIONS: None. HISTORY: Alcon Zamora has had excessive menses with dysmenorrhea, generalized pelvic pain, and dyspareunia that has been worsening over the last two years. PROCEDURE: Alcon is taken to the operating room with an IV in place. Spinal anesthesia is easily administered. She is fully monitored. She is placed in the lithotomy position and perineum and vagina are prepped and draped in a normal sterile manner. Pedicles are taken with ligasure. The cul-de-sac is entered with ligasure and sharp dissection. Mucosa is opened over the anterior cervix and the bladder is taken off the lower uterine segment and cervix sharply and bluntly and the peritoneum sharply entered. Pedicles of the remaining cervix, uterosacral ligaments, lower uterine segment, anterior broad ligaments, uterine vessels are taken bilaterally. The round ligament, fallopian tube, uterine, ovarian pedicle are taken bilaterally. The uterus is sent to pathology. The pedicles are dry. The tubes and ovaries are inspected and are normal. The peritoneum is closed with 0 Vicryl running purse string suture. The pedicles are dry. The vaginal cuff is closed from side to side with 0 Vicryl running locking suture. The vaginal cuff is dry. A Pantoja catheter is placed and clear urine is obtained. All sponge, needle, and instrument counts are correct. The patient tolerates the procedure well and is taken to the recovery room awake and in good condition. Timmy Perez M.D. WDS/bianca cc: documented in this encounter Plan of Treatment Not on filedocumented as of this encounter Visit Diagnoses Not on filedocumented in this encounter Care Teams Wheel Roller Relationship Specialty Start Date End Date Timmy Perez MD PCP - 03/02/08 08/07/15 [facility] Obstetrics/Gynecology [place] [address] [place] [address] Yung Madrigal MD PCP - Orthopaedics Orthopedics 08/26/12 RETIRED Frw, None PCP - General Family Practice 08/26/12 05/03/13 Winston Villatoro OD PCP - Ophthalmology Ophthalmology 02/11/13 [facility] [address] [facility] [address] [place] [address] Apple Sykes MD PCP - General Family Practice 05/04/13 10/25/[address] [place] [address] Westley Bates MD PCP - ENT Otolaryngology 05/14/13 07/28/18 XXX RETIRED XXX [address] [place] [address] Alessandra Erickson PCP - General Nurse Practitioner 10/26/16 02/06/17 BARRERA Serra SALES AND SERVICE TECHNICIAN [address] [facility] [place] [id number] Clara Cornell PCP - General Internal Medicine 02/07/17 09/20/20 MD Dada Clara Cornell PCP - Assigned PCP 01/17/17 11/18/18 MD Dada [address] [id number] Denise Woodson Ra, PCP - General Family Practice 09/21/20 SOCIAL WORK LECTURER SALES AND SERVICE TECHNICIAN [address] [place] [id number] Clara Cornell Assigned PCP 01/17/17 07/16/20 MD Dada [address] [id number] Denise Woodson Ra, Assigned PCP 07/17/20 SOCIAL WORK LECTURER SALES AND SERVICE TECHNICIAN [address] [place] [id number] documented as of this encounter
--- OUTSIDE RECORDS SUMMARY | 2022-08-29 12:13 | XMS_ITS | Encounter Summary ---
:1975 Author Organization [facility] Address [address] [place] [address] Care Team Providers Name Role Phone Timmy Perez MD Unavailable Reason for Referral - Closed Specialty Diagnoses / Procedures Referred By Contact Refer red To Contact Diagnoses Cervicalgia Zz Rw Phy Therapy Procedures RW PT BILLING [[phone]] [phone] [phone] Referral ID Status Reason Start Date Expiration Date Visits Requ ested Visits Authorized [id number] Closed 03/17/2008 09/15/2011 1 1 Reason for Visit Reason Comments PT Initial Visit cervical spine Encounter Details Date Type Department Care Team Description 03/16/[address] [facility] Christina Siegel PT In itial Visit Health/Nurse System in [place] Sims PT (cervical spine) Visit Physical Therapy [facility] [address] [place] [address] [address] PRIMO OSWALD [phone] Social History Tobacco Use Types Packs/Day Years Used Date Smoking Tobacco: Never Alcohol Use Standard Drinks/Week Comments Yes 0 (1 standard drink = 0.6 oz pure alcoho l) Sex Assigned at Date Recorded Not on file documented as of this encounter Progress Notes Christina Siegel - 03/17/2008 12:09 PM CDT Addended by: CHRISTINA SIEGEL on: 03/17/2008 12:09:03 PM Modules accepted: Orders Christina Siegel - 03/16/2008 12:36 PM CDT PHYSICAL THERAPY INITIAL EVALUATION and PLAN OF CARE Patient Name: Alcon Zamora : 1975 Specialty Tracking: Outpatient SUBJECTIVE: PRESENTATION AND ETIOLOGY Chief Complaint: Bilateral cervical spine pain and decreased ROM limiting their ability to perform activities of daily living and work activities. Onset / Etiology: Pt reports chronic cervical pain for several years. SHe would have 1-2 episodes of neck pain that would last for 2-3 days and then completely resolve. 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 Her last Episode was in November and it has not Dissolved, she is now constantly in neck pain and has YANG's on a daily basis. In the past the pain would radiate into her left upper trap, it currently is in the right upper trap. Pattern Since Onset: Worsened Pertinent Medical / Surgical History: Epic Summary Reviewed: Non-contributory Symptom Pattern: Day: worse at the end of a work day Pain: Character: achy, sharp and shooting at times Frequency: Constant or Activity Dependent LEVEL OF FUNCTION AT START OF CARE Current Aggrevating Activities / Functional Limitations: bending, sitting >30 minutes, looking down to do the dishes or cook, driving, reading Prior Functional Level: No functional limitations prior to onset of chief complaint. Home or Community Barriers: None Patient's selected goals for physical therapy: painfree in order to do ADL's CURRENT / PREVIOUS INTERVENTION(S): Referring Provider: Timmy Perez M.D. 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 Runded shoulders, forward head in static RANGE OF MOTION: Active: Following ROM limited by pain: flexion 75% full, left SB 50% full. Extension was full and painfull, right rotation was full and painfree. The following ROM limited due to stiffness: left rotation 75% full, right SB 75% full. Passive: same as AROM Accessory Motion: Tender and hypomobile to central PA's of C2-5 MUSCLE PERFORMANCE: Strength: WNL/WFL SELF CARE AND HOME MANAGEMENT / COMMUNITY AND WORK INTEGRATION: Functional Testing / Observation: WNL/WFL Pain behaviors: None SPECIAL TEST(S): Palpation: Reproduction of symptoms with palpation of left upper trap and cervical paraspinal Joint Specific Special Tests: (-) compression test, VAT test, and right quadrant test. (+) left quadrant test Neurological Special Tests: ?? Myotome Testing: WNL Sensation Testing: WNL Deep Tendon Reflexes: Not Tested: Time constraints NEUROMOTOR DEVELOPMENT AND SENSORY INTEGRATION: WNL/WFL (Observed during evaluation) VENTILATION, RESPIRATION, AND CIRCULATION: WNL/WFL (At rest and with activity) Today's Treatment: Initial evaluation THERAPEUTIC PROCEDURES Manual Therapy: 10 minutes Joint Mobilization: Technique: central PA's to C2-5. Grade: II. Patient position: prone Therapeutic Exercise: 15 minutes Issued written handout(s): chin tucks, scapular depression. Also instructed pt to limit sitting to <20 minutes, increase walking frequency. Limit time spent looking down to clip coupons or read to <5 minutes Total Visit Time: 60 minutes Total Time-Based Code Only Minutes: 25 minutes. ASSESSMENT: Physical Therapy Diagnosis: Impaired Joint Mob, Motor Function, Muscle Perform, ROM, & Reflex Integrity assoc. w/ Spinal Disorders Patient requires PT intervention for the following impairments: pain, decreased AROM and decreased PROM Patient requires PT interventions for the following functional limitations: Patient-Specific Functional Scale Q1: bending. Unable to rate / 10 Q2: looking down to brush teeth. Unable to rate / 10 Q3: looking behind when running. Unable to rate / 10 (0 = unable to perform activity / 10 = able to perform activity at the same level as before injury or problem) Anticipated Goals and Expected Oucomes: Independent and safe with HEP / self care program in 1 week(s). Good working knowledge of posture principles / joint protection in 1 week(s). Sitting tolerance 30 minutes without increased pain or symptoms in 4 week(s). Homemaking / Yardwork without substitution or deviation in 4 week(s). Patient will report a 85% improvement in 4 week(s). Rehab potential for achieving goals: excellent. PLAN: Patient will benefit from skilled physical therapy consisting of: modalities to relieve pain and increase tissue flexibility, manual therapy techniques to improve joint mobility and pain complaints andtherapeutic exercise to develop: strength and endurance and range of motion Assessment will be ongoing with changes in treatment as indicated. Benefits/risks/alternatives to treatment have been reviewed and the patient has been instructed to contact this office if they have any questions or concerns. This plan of care has been discussed with the patient and the patient is in a greement. Frequency / Duration: Patient will be seen 2 times a week for 4 weeks. Christina Siegel, ADELFO Date: 03/16/2008 Referring Provider Certification: Referring Provider reviewing certifies that the above treatment/ plan of care is required and authorized, and that the patient's plan will be reviewed every thirty(30) days . MIDDLE SCHOOL COMBINATION TEACHER PRESENT: NA MULTIDISCIPLINARY PATIENT / FAMILY EDUCATION [...] Procedure Name Priority Date/Time Associated Diagnosis Comme [facility] PT BILLING Routine 03/17/2008 12:08 PM CDT Cervicalgia-reha b dx documented in this encounter Visit Diagnoses Diagnosis Cervicalgia-rehab dx - Primary Cervicalgia documented in this encounter Care Teams Director Long Term Care Relationship Specialty Start Date End Date Timmy Perez MD PCP - Obstetrics/Gynecology 03/02/0807/[address] [address] documented as of this encounter
--- OUTSIDE RECORDS SUMMARY | 2022-08-29 12:13 | XMS_ITS | Encounter Summary ---
:1975 Author Organization [facility] Address [address] [place] [address] Care Team Providers Name Role Phone Unavailable Primary Care Provider Unavailable Encounter Details Date Type Department Care Team Description 01/30/2006 Hospital Laboratory [facility] Yuniel Perez MD System in [address] [place], [place] [id number] [phone] Social History Tobacco Use Types Packs/Day Years Used Date Smoking Tobacco: Never Alcohol Use Standard Drinks/Week Comments Yes 0 (1 standard drink = 0.6 oz pure alcoho l) Sex Assigned at Date Recorded Not on file documented as of this encounter Plan of Treatment Not on filedocumented as of this encounter Procedures Procedure Name Priority Date/Time Associated Comments Diagnosis HCL HEMOGLOBIN STAT 01/30/2006 2:03 PM Results for this NONLAB CDT procedure are i n the results section. documented in this encounter Results (ABNORMAL) HGB (01/30/2006 2:03 PM CDT) P athologist Signature Hemoglobin 10.5 (L) 11.7 - 15.7 [facility] g/dL [facility] Specimen Anatomical Collection Method Collection Time Receive d Time (Source) Location / / Volume Laterality 01/30/2006 2:03 PM 6 2:09 CDT PM CDT Timmy Perez MD LABORATORY Performing Organization Address City/State/ZIP Code Phon e Number [facility] [id number] documented in this encounter Visit Diagnoses Not on filedocumented in this encounter
--- OUTSIDE RECORDS SUMMARY | 2022-08-29 12:13 | XMS_ITS | Encounter Summary ---
:1975 Author Organization [facility] Address [address] [place] [address] Care Team Providers Name Role Phone Timmy Perez MD Unavailable Reason for Visit Reason Comments PT Discharge Summary cervical spine Encounter Details Date Type Department Care Team Description 04/14/2008 [facility] Maryse Siegel PT Luanne kearney Summary Health/Nurse System in [place] PT (cervical spine) Visit Physical Therapy [address] [place], [place] [address] [facility] [address] [place], [place] [address] Social History Tobacco Use Types Packs/Day Years Used Date Smoking Tobacco: Never Alcohol Use Standard Drinks/Week Comments Yes 0 (1 standard drink = 0.6 oz pure alcoho l) Sex Assigned at Date Recorded Not on file documented as of this encounter Progress Notes Maryse Siegel - 04/14/2008 9:59 AM CDT PHYSICAL THERAPY SUMMATION OF EPISODE OF CARE Patient Name: Alcon Zamora : 1975 Dates of Service: 03/16/08-04/01/08 Number of Visits: 5 Referring Provider: Timmy Perez M.D. Physical/Functional Status at Last Visit / Patient Contact: Patient reports a current pain level of Unable to rate/10 compared to 1/10 at the start of care. Contacted pt by phone and she reported due to shingles last week she was unable to do her exercises. However she did develop a sore neck this week and was able to diminish the intensity with her HEP. Patient Specific Functional Scale: Q1: bending. Initial: Unable to rate/10 - Current: Unable to rate/10 Q2: looking down to brush her teeth. Initial: Unable to rate/10 - Current: 10/10 Q3: looking behind when running. Initial: Unable to rate/10 - Current: 10/10 (0 = unable to perform activity / 10 = able to perform activity at the same level as before injury or problem) Patient reports: I now know how to manage a YANG or neck pain if it comes on, which is rare. Goals in the Plan of Care: Q1: bending. Unable to rate / 10 [...] report a 85% improvement in 4 week(s). Degree of Anticipated Goals and Expected Outcomes Achieved: (Assesment of improvement, and extent of progress toward each goal in the current POC) Goal #1: Met. Goal #2: Met. Goal #3: Met. Goal #4: Met. Goal #5: Unknown Criteria for Discharge: Anticipated goals and expected outcomes have been achieved. Discharge Plan: Home exercise and self care program: At last visit pt denied questions regarding HEP, and reported compliance Therapist: Maryse Siegel, DPT Date: 04/14/2008 documented in this encounter Plan of Treatment Not on filedocumented as of this encounter Visit Diagnoses Not on filedocumented in this encounter Care Teams Print Color Matcher Relationship Specialty Start Date End Date Timmy Perez MD PCP - Obstetrics/Gynecology 03/02/0807/18 [address] [place] [address] documented as of this encounter
--- OUTSIDE RECORDS SUMMARY | 2022-08-29 12:13 | XMS_ITS | Encounter Summary ---
:1975 Author Organization [facility] Address [address] [place] [address] Care Team Providers Name Role Phone Unavailable Primary Care Provider Unavailable Reason for Visit Reason Comments Surgical Followup Encounter Details Date Type Department Care Team Description 02/08/2006 Office Visit [facility] Timmy Perez MD SURGERY FOLLOWUP NOS System in [facility] (Primar y Dx) OPERATING SYSTEMS PROGRAMMER [address] [address] [place], [place] [phone] (Wo rk) Social History Tobacco Use Types Packs/Day Years Used Date Smoking Tobacco: Never Alcohol Use Standard Drinks/Week Comments Yes 0 (1 standard drink = 0.6 oz pure alcoho l) Sex Assigned at Date Recorded Not on file documented as of this encounter Last Filed Vital Signs Vital Sign Reading Time Taken Comments Blood Pressure 110/74 02/08/2006 10:45 AM CDT Pulse 80 02/08/2006 10:45 AM CDT Temperature 36.9 ??C (98.4 ??F) 02/08/2006 10:45 AM CDT Respiratory Rate - - Oxygen Saturation - - Inhaled Oxygen Concentration - - Weight 70.3 kg (155 lb) 02/08/2006 10:45 AM CDT Height - - Body Mass Index 23.22 01/28/2006 3:00 PM CDT documented in this encounter Progress Notes Timmy Perez - 02/17/2006 9:03 PM CDT Post op: 1 week post TVH and Jose is having no problems. Her pre op pain is gone. Exam: vag cuff is healing well with no tenderness. Dx: normal post op exam Plan: cont post op cares documented in this encounter Nursing Notes 02/08/2006 10:45 AM CDT >> ARTIS LLANOS 02/08/2006 10:56 am Po TVH of 01/30/2006,feels fine, Pain Questionnaire: Is your visit today because of Pain? NO documented in this encounter Plan of Treatment Not on filedocumented as of this encounter Visit Diagnoses Diagnosis Follow-up examination, following unspeci fied surgery - Primary documented in this encounter
--- OUTSIDE RECORDS SUMMARY | 2022-08-29 12:13 | XMS_ITS | Encounter Summary ---
:1975 Author Organization [facility] Address [address] [place] [address] Care Team Providers Name Role Phone Timmy Perez MD Unavailable Reason for Referral - Closed Specialty Diagnoses / Procedures Referred By Contact Refer red To Contact Diagnoses Neck pain Timmy Perez MD [address] [address] Referral ID Status Reason Start Date Expiration Date Visits Requ ested Visits Authorized [id number] Closed 03/08/2008 09/15/2011 1 1 Reason for Visit Reason Comments Physical Encounter Details Date Type Department Care Team Description 03/08/2008 Office Visit [facility] Timmy Perez MD Routine General Medical Examination at a Health Care Facility (Primary Dx); System in [facility] in; ELECTROLYSIST [place] GENERALIZED ANXIETY DIS Jag Hebert Vermavard [address] [place] [address] [place], [place] [phone] (Wo rk) Social History Tobacco Use Types Packs/Day Years Used Date Smoking Tobacco: Never Alcohol Use Standard Drinks/Week Comments Yes 0 (1 standard drink = 0.6 oz pure alcoho l) Sex Assigned at Date Recorded Not on file documented as of this encounter Last Filed Vital Signs Vital Sign Reading Time Taken Comments Blood Pressure 118/64 03/08/2008 8:30 AM CDT Pulse - - Temperature - - Respiratory Rate - - Oxygen Saturation - - Inhaled Oxygen Concentration - - Weight 78.5 kg (173 lb) 03/08/2008 8:30 AM CDT Height 175.9 cm (5' 9.25) 03/08/2008 8:30 AM CDT Body Mass Index 25.36 03/08/2008 8:30 AM CDT documented in this encounter Progress Notes Timmy Perez - 03/08/2008 8:38 AM CDT Alcon is a 32 year old female here for her annual exam. She has Had a vagianl hysterectomy. She has been having recurrant neck pain. This seems to be more right sided muscle pain. 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 Excessive or Frequent Menstruation 01/31/06 Hospitalized ??? Hemorrhage Complicating a Procedure ??? Acute Posthemorrhagic Anemia Past Surgical History Procedure Date ??? brigadier procedure date: [id number] vag del. ??? Rw service greeter (abstracted) pneumonia several times ??? brigadier procedure date: 2000 tubal ligation ??? brigadier procedure date: 1994 D&C ??? Vaginal hysterectomy 01/30/06 Current outpatient prescriptions Medication Sig ??? CELEXA 20 MG OR TABS ONE DAILY ??? ADVAIR DISKUS IN None Entered ALLERGIES: Erythromycin Family History Problem Relation ??? Diabetes No [...] negative GI: negative BREAST: negative : negative SWEATER DESIGNER: negative CV: negative PULMONARY: negative MUSCULOSKELETAL: as above PSYCH: negative, doing well on Celexa SKIN: negative History Social History ??? Marital Status: Spouse Name: N/A Number of Children: N/A ??? 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 Tobacco Use: Never ??? Alcohol Use: Yes ??? Drug Use: No ??? Sexually Active: Yes -- Male partner(s) Control/ Protection: Surgical Other Topics Concern ??? Blood Transfusions Yes 1994 ??? Caffeine No ??? Sleep Concern Yes [...] Urethra: normal meatus Vagina: normal, no lesions. Mild cystocele Cervix and Uterus: surgically absent Adnexa: nontender with out masses or iregularities, ovaries not enlarged. RV:confirms above with no lesions palpable EXT: no edema, calf tenderness or significant varicosities Skin: no lesions of concern Assessment: Annual exam Neck muscle pain Anxiety controlled Plan: Cont celexa Physical therapy consult Lipids documented in this encounter Plan of Treatment Not on filedocumented as of this encounter Visit Diagnoses Diagnosis Routine general medical examination at a health care facility - Primary Neck pain Cervicalgia GENERALIZED ANXIETY DIS Generalized anxiety disorder documented in this encounter Care Teams Floor Waxer Relationship Specialty Start Date End Date Timmy Perez MD PCP - Obstetrics/Gynecology 03/02/0807/[address] [address] documented as of this encounter
--- OUTSIDE RECORDS SUMMARY | 2022-08-29 12:13 | XMS_ITS | Encounter Summary ---
:1975 Author Organization [facility] Address [address] [place] [address] Care Team Providers Name Role Phone Timmy Perez MD Unavailable Reason for Referral - Closed Specialty Diagnoses / Procedures Referred By Contact Refer red To Contact Diagnoses Cervicalgia Zz Rw Phy Therapy Procedures RW PT BILLING [[id number]] [phone] [phone] Referral ID Status Reason Start Date Expiration Date Visits Requ ested Visits Authorized [id number] Closed 04/01/2008 09/15/2011 1 1 Reason for Visit Reason Comments PT Daily Visit cervical spine Encounter Details Date Type Department Care Team Description 04/01/2008 [facility] Maryse Siegel PT Theodore rosa Visit Health/Nurse System in [place] PT (cervical spine) Visit Physical Therapy [facility] [address] [place] [address] [place] [address] [address] OS[address]D [address] Social History Tobacco Use Types Packs/Day Years Used Date Smoking Tobacco: Never Alcohol Use Standard Drinks/Week Comments Yes 0 (1 standard drink = 0.6 oz pure alcoho l) Sex Assigned at Date Recorded Not on file documented as of this encounter Progress Notes Maryse Siegel - 04/01/2008 4:04 PM CDT PHYSICAL THERAPY DAILY VISIT NOTES SUBJECTIVE: Since the last visit, the patient reports no YANG's. She has also not had any pain during the day since the last PT visit. She is still having difficulty sleeping at night however.Current pain 1/10 OBJECTIVE: TREATMENT TODAY CONSISTED OF: THERAPEUTIC PROCEDURES Therapeutic Exercise: 8 minutes: pulldowns with green TB, rows with green TB, upper trap and lower trap strengthening all 20 reps MODALITIES: Contraindications and precautions were reviewed with the patient. Ultrasound: 100% US at 1.3 w/cm2, 1 MHz x 8 minutes to bilateral paraspinals and upper trap. Patientposition: prone. THERAPEUTIC PROCEDURES Manual Therapy: 12 minutes Joint Mobilization: Technique: central PA's and unilateral PA's to C1-5. Grade: II and III. Patient position: prone. Decreased hypomobility and tenderness noted tenderness atall levels ASSESSMENT: Post treatment response: Subjective report of [...] Total Time-Based Code Only Minutes: 21 minutes. Thermodynamics Teacher Present: SONALI Therapist: Maryse Siegel DPT documented in this encounter Plan of Treatment Not on filedocumented as of this encounter Procedures Procedure Name Priority Date/Time Associated Diagnosis Comme nts RW PT BILLING Routine 04/01/2008 4:04 PM CDT Cervicalgia-rehab dx documented in this encounter Visit Diagnoses Diagnosis Cervicalgia-rehab dx - Primary Cervicalgia documented in this encounter Care Teams Apiculture Teacher Relationship Specialty Start Date End Date Timmy Perez MD PCP - Obstetrics/Gynecology 03/02/0807/[address] [address] documented as of this encounter
--- OUTSIDE RECORDS SUMMARY | 2022-08-29 12:14 | XMS_ITS | Encounter Summary ---
:[address] [facility] Address [address] [place] [address] Care Team Providers Name Role Phone Unassigned, Pcp Primary Care Provider Unavailable Encounter Details Date Type Department Care Team Description 12/01/2020 Orders Only [facility] Sa earle Franklin M.D. [address] [place], [place] [phone] (Wo rk) Social History Tobacco Use Types Packs/Day Years Used Date Smoking Tobacco: Never Smokeless Tobacco: Never Alcohol Use Standard Drinks/Week Comments No 0 (1 standard drink = 0.6 oz pure alcoho l) Sex Assigned at Date Recorded Female 02/11/2018 8:36 AM CDT documented as of this encounter Plan of Treatment Not on filedocumented as of this encounter Visit Diagnoses Not on filedocumented in this encounter Care Teams Channel Marketing Coordinator Relationship Specialty Start Date End Date Unassigned, Pcp PCP - General Family Medicine 04/22/19 documented as of this encounter
--- OUTSIDE RECORDS SUMMARY | 2022-08-29 12:14 | XMS_ITS | Encounter Summary ---
:1975 Author Organization [facility] Address [address] [place] [address] Care Team Providers Name Role Phone Unassigned, Pcp Primary Care Provider Unavailable Reason for Visit Appointment Request (Routine) - Closed Specialty Diagnoses / Procedures Referred By Contact Refer red To Contact Nephrology and Keira Irvin Hypertension Tanish[address] [place] [address] Referral ID Status Reason Start Date Expiration Date Visits Requ ested Visits Authorized [id number] Closed 11/10/2020 11/10/2021 1 1 Encounter Details Date Type Department Care Team Description 11/16/2020 External Outreach Division of Ghada Hernandez 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 Depression Major Recurrent Mild (HCC) [place], [place] [address] [facility] [address] [place] [id number] [phone] Social History Tobacco Use Types Packs/Day Years Used Date Smoking Tobacco: Never Smokeless Tobacco: Never Alcohol Use Standard Drinks/Week Comments No 0 (1 standard drink = 0.6 oz pure alcoho l) Sex Assigned at Date Recorded Female 02/11/2018 8:36 AM CDT documented as of this encounter Consult Notes Shahbaz Hernandez Jr., D.OVicenta - 11/16/2020 11:00 AM CST Please see scanned in note under document viewer tab for the [facility] [place] outreach visit from this date. RVISOR INSTRUMENT REPAIR documented in this encounter Plan of Treatment Not on filedocumented as of this encounter Visit Diagnoses Diagnosis Chronic Kidney Disease Stage 1 Glomerula r Filtration Rate Greater Than 90 - Primary Proteinuria Depression Major Recurrent Mild (HCC) documented in this encounter Care Teams Weigh And Charge Worker Relationship Specialty Start Date End Date Unassigned, Pcp PCP - General Family Medicine 04/22/19 documented as of this encounter
--- OUTSIDE RECORDS SUMMARY | 2022-08-29 12:14 | XMS_ITS | Encounter Summary ---
:1975 Author Organization [facility] Address [address] [place] [id number] Care Team Providers Name Role Phone Unassigned, Pcp Primary Care Provider Unavailable Reason for Visit Reason Onset Date Comments Testing For Upper Respiratory Virus Symptoms 10/25/2020 Encounter Details Date Type Department Care Team Description 10/25/2020 External Outreach Department of Delisa Jack With And Internal Medicine BARRERA Saez, C.N.P., (Maríae cted) Exposure in [place], D.N.P. To COVID-19 ([address]) [address] [place] [id number] Social History Tobacco Use Types Packs/Day Years Used Date Smoking Tobacco: Never Smokeless Tobacco: Never Alcohol Use Standard Drinks/Week Comments No 0 (1 standard drink = 0.6 oz pure alcoho l) Sex Assigned at Date Recorded Female 02/11/2018 8:36 AM CDT documented as of this encounter Progress Notes Jose Cid RPeter. - 10/25/2020 9:46 AM CST Encounter created for symptomatic infectious disease screening with possible COVID, Influenza, RSV, and/or Group A Strep testing. L SOCIOLOGIST documented in this encounter Plan of Treatment Not on filedocumented as of this encounter Procedures Procedure Name Priority Date/Time Associated Diagnosis Comme nts SARS CORONAVIRUS-2 Routine 10/26/2020 4:42 PM Contact With And Results for this RNA, V RURAL SOCIOLOGIST (Suspected) Exposure procedu re are in To COVID-19 the results section. documented in this encounter Results SARS Coronavirus-2 RNA, V Symptomatic (10/26/2020 4:42 PM RURAL SOCIOLOGIST) [facility] Method Time Signature SARS-CoV-2 Swab, 10/27/2020 ECLR Specimen Nasopharynx 9:59 AM RURAL SOCIOLOGIST Source SARS CoV-2 Undetected Undetected 10/27/2020 ECLR RNA, TMA 9:59 AM RURAL SOCIOLOGIST Comment: SARS-CoV-2 RNA absent. This result does not rule out COVID-19 in the patient, as the sensitivity of the test depends o n the timing of the specimen collection and the quality of the specim en. Result should be correlated with patient's history and clinical presentat ion. ----ADDITIONAL INFORMATION---- This molecular amplification test was pe rformed using the Aptima SARS-CoV-2 assay ([employer] on the [employer] tem under emergency use authorization (EUA) by the U.S. Food and Drug Administ ration. Fact sheets for this EUA assay can be fo und at the following links: For Healthcare Providers: https://www.fd a.gov/media/439135/download For Patients: https://www.fda.gov/media/ 689766/download Specimen Anatomical Collection Method Collection Time Receive d Time (Source) Location / / Volume Laterality Varies 10/26/2020 4:42 PM 9:22 (Nasopharynx) RURAL SOCIOLOGIST PM RURAL SOCIOLOGIST Delisa Jack APRN, C.N.P., D.N.P. LAB MICROBIOLO GY - GENERAL ORDERABLES Performing Organization Address City/State/ZIP Code Phon e Number [facility]- [address] [place] [phone] [facility] [place] [address] System in [address] documented in this encounter Visit Diagnoses Diagnosis Contact With And (Suspected) Exposure To COVID-19 - Primary documented in this encounter Additional Health Concerns Infection Onset Date Last Indicated Resolved Time COVID19 Pending 10/25/2020 10/26/2020 10/27/2020 9:59 AM RURAL SOCIOLOGIST documented as of this encounter Care Teams Knot Tying Operator Relationship Specialty Start Date End Date Unassigned, Pcp PCP - General Family Medicine 04/22/19 documented as of this encounter
--- OUTSIDE RECORDS SUMMARY | 2022-08-29 12:14 | XMS_ITS | Encounter Summary ---
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 Viral Syndrome [place], [place] [address] [address] [place], [place] [phone] (Wo rk) Social History Tobacco Use Types Packs/Day Years Used Date Smoking Tobacco: Never Smokeless Tobacco: Never Alcohol Use Standard Drinks/Week Comments No 0 (1 standard drink = 0.6 oz pure alcoho l) Sex Assigned at Date Recorded Female 02/11/2018 8:36 AM CDT documented as of this encounter Last Filed Vital Signs Vital Sign Reading Time Taken Comments Blood Pressure 122/69 06/26/2022 6:25 PM CDT Pulse 62 06/26/2022 6:25 PM CDT Temperature 36.2 ??C (97.2 ??F) 06/26/2022 6:25 PM CDT Respiratory Rate 14 06/26/2022 6:25 PM CDT Oxygen Saturation 100% 06/26/2022 5:15 PM CDT Inhaled Oxygen Concentration - - Weight 75.8 kg (167 lb 1.7 oz) 06/26/2022 4:51 PM CDT Height - - Body Mass Index 25.41 06/03/2021 8:34 AM CDT documented in this encounter Discharge Instructions AttachmentsThe following attachments cannot be sent through Care Everywhere. Muscle Cramps and Spasms (Nigerien)Viral Illness Adult (Nigerien)documented in this encounter Medications at Time of Discharge Medication Sig Dispensed Refills Start Date End Date albuterol (for_PROVENTIL Inhale 2 puffs 1 Inhaler 3 018 HFA,VENTOLIN HFA) 90 every 4 (four) mcg/actuation inhaler hours as needed for wheezing. BREO ELLIPTA 200-25 INHALE ONE PUFF 180 each 3 10/27/2018 mcg/dose inhaler DAILY citalopram (CeleXA) 20 mg TAKE ONE AND 135 tablet 3 10/27/19 19 tablet ONE-HALF TABLETS BY MOUTH ONCE DAILY cyclobenzaprine Take 1 tablet (10 10 tablet 0 06/26/2022 (FLEXERIL) 10 mg tablet mg total) by mouth 3 (three) times a day as needed for muscle spasms for up to 10 days. fluticasone (FLONASE) 50 Administer 2 sprays 54 g 3 mcg/actuation nasal spray into each nostril 2 (two) times a day. HYDROcodone-acetaminophen Take 2 tablets by 6 tablet 0 (NORCO) 5-325 mg per mouth every 6 (six) tabletIndications: Acute hours as needed for Pain pain Indication: Acute Pain. ibuprofen Take 200 mg by 0 (for_ADVIL,MOTRIN) 200 mg mouth. capsule ketorolac (TORADOL) 10 mg Take 1 tablet (10 20 tablet 0 tablet mg total) by mouth every 6 (six) hours as needed for pain. LORATADINE-PSEUDOEPHEDRIN as needed. 0 E ORAL LORazepam (ATIVAN) 0.5 mg as needed. 0 tablet MAGNESIUM ORAL Take 100 mg by 0 mouth at bedtime. methylphenidate HCl Take 18 mg by mouth 0 (CONCERTA) 18 mg CR daily. tablet omeprazole (PriLOSEC) 20 Take 20 mg by 0 11/02/[address] capsule mouth. UNABLE TO FIND Night Splint for 0 04/12/2021 plantar fascitis as needed predniSONE (DELTASONE) 20 Take 2 tablets (40 6 tablet 0 06/29/2022 mg tablet mg total) by mouth daily for 3 days. documented as of this encounter ED Notes Stewart Jillrené Martines APRN, SumayaN. - 06/26/2022 5:10 PM CDT SUBJECTIVE CHIEF COMPLAINT/REASON FOR VISIT Neck Pain HISTORY OF PRESENT ILLNESS History provided by: Patient and medical records Alcon Zamora is a very pleasant 46 y.o. with past medical history of chronic neck pain, depression, CKD, ADHD who presents via private car from home for evaluation of neck pain. Patient reports URI symptoms consisting of cough, congestion, headache, sore throat, fatigue, myalgia over the past 12 days. Patient has had 3- COVID test at home. Patient states that yesterday she awoke with sore neck that over the past 24 hours has worsened. States that her neck feels very tight hurts with any movement.Patient states pain radiates down her mid back. Some intermittent numbness and tingling to bilateralupper extremities reported by patient which has been ongoing before her recent neck pain. Patient has history of chronic neck pain and has been using ibuprofen, Tylenol, voltaren cream without much relief. No weakness. No fevers. No rash. REVIEW OF SYSTEMS Constitutional: Negative for chills and fever. HENT: Negative for congestion and sore throat. Respiratory: Negative for chest tightness and shortness of breath. Cardiovascular: Negative for chest pain and palpitations. Gastrointestinal: Negative for diarrhea, nausea and vomiting. Genitourinary: Negative for dysuria and hematuria. Musculoskeletal: Positive for myalgias and neck pain. Skin: Negative for rash. Neurological: Negative for dizziness and weakness. OBJECTIVE Initial Vitals Temperature Pulse Rate Heart Rate Resp Rate Blood Pressure SpO2 06/26/22 1640 06/26/22 1640 -- 06/26/22 1640 06/26/22 1640 06/26/22 1640 36.5 ??C 107 20 (!) 171/82 99 % Pain Score 06/26/22 1651 7 PHYSICAL EXAMINATION Constitutional: Nursing note and vitals reviewed. She is cooperative. HENT: Head: Atraumatic. Mouth/Throat: Oropharynx is clear and moist. Mucous membranes are moist. Eyes: Conjunctivae are normal. Neck: Trachea normal. Neck supple. Cardiovascular: Normal rate. Pulmonary/Chest: Effort normal. No respiratory distress. Abdominal: Normal appearance. Musculoskeletal: Cervical back: Neck supple. Spasms present. Pain with movement and muscular tenderness present. No spinous process tenderness. Comments: Moves all extremities Lymphadenopathy: She has no cervical adenopathy. Neurological: Alert. Normal speech. Skin: No rash (on exposed skin) noted. ASSESSMENT/PLAN Alcon Zamora presents for evaluation of neck pain. See HPI/ED Course. Exam significant for increased pain with lateral rotation of neck and cervical paraspinal tenderness worse on right than left. Denies trauma, weakness, fever, rash. X-ray shows cervical lordosis; suspect spasm. Patient improved with treatments(Toradol IM, Valium p.o., lidocaine patch, prednisone) discuss treatment with prednisone, Flexeril, ibuprofen over the next 2-3 days and follow up with primary care provider symptoms persist. Strict return precautions were provided patient questions answered. Patient verbalized understanding. Patient discharged in stable condition. DIFFERENTIAL DIAGNOSIS Ddx: arthritis, fracture, spinal stenosis, spasm, sprain and strain I reviewed previous medical records including documentation from previous visits. I reviewed the radiology report(s). The Radiology exam interpretation(s) is/are documented in ED Course.CPR: No CPR performed. ED Course as of 06/26/221838 Tue Jun 26, 2022 1759 DX Cervical Spine 2-3 Views IMPRESSION: Reversal of the cervical lordosis which can be attributed to muscle spasm/contracture. Otherwise common no acute fracture or traumatic subluxation. 1811 SARS CoV-2, PCR, Rapid, V: Undetected Final Diagnoses: as of 06/26/221838 Spasm Muscle Pain Neck Viral Syndrome Jill Stewart APRN, R.N. 06/26/22 1840 documented in this encounter Plan of Treatment Not on filedocumented as of this encounter Procedures Procedure Name Priority Date/Time Associated Comments Diagnosis DX CERVICAL SPINE RAD - Semiurgent 06/26/2022 6:10 Res ults for this 2-3 VIEWS (Fast; most ED PM CDT procedure are in patients; some the results inpatients) section. SARS CORONAVIRUS 2, STAT 06/26/2022 5:23 Resul ts for this PCR RAPID, V PM CDT procedure are i n the results section. documented in this encounter Results DX Cervical Spine 2-3 Views (06/26/2022 6:10 PM CDT) Anatomical Region Laterality Modality Cervical Spine, Musculoskeletal RST LOS, N/A Digital Radiography Neuroradiology ARZ LOS, Muskuloskeletal FLA LOS Specimen (Source) Anatomical Collection Method Collection Time Re ceived Time Location / / Volume Laterality 06/27/2022 6:54 AM CDT Impressions 06/27/2022 6:55 AM CDT Vertebral body heights maintained without evidence of vertebral compression fracture. Broad reversal of the normal cervical lo rdosis. No focal spondylolisthesis or angulation at any level. Multilevel degenerative disc dise ase is mild in severity and most pronounced at C3-4, and to a slightly lesser degree at C4-5 and C5- 6. Mild diffuse facet arthropathy, slightly more pronounced on the left. Prevertebral soft tissues a re normal. Lung apices are clear. vRad: ??Minor revision of the preliminar y vRad report. A Narrative 06/27/2022 6:55 AM CDT EXAM: DX CERVICAL SPINE 2-3 VIEWS Procedure Note Lee Santamaria M.D. - 06/27/2022Formatt ing of this note might be different from the original. EXAM: DX CERVICAL SPINE 2-3 VIEWS IMPRESSION: Vertebral body heights maintained withou t evidence of vertebral compression fracture. Broad reversal of the normal cervical lo rdosis. No focal spondylolisthesis or angulation at any level. Multilevel degenerative disc dise ase is mild in severity and most pronounced at C3-4, and to a slightly lesser degree at C4-5 and C5- 6. Mild diffuse facet arthropathy, slightly more pronounced on the left. Prevertebral soft tissues a re normal. Lung apices are clear. vRad: Minor revision of the preliminary vRad report. A Jill Stewart APRN, C.N.P., R.N. IMG DIAGNOSTIC IMAGING PROCEDURES SARS Coronavirus 2, PCR Rapid, V Symptomatic (06/26/2022 5:23 PM CDT) [facility] Method Time Signature SARS CoV-2, Undetected Undetected 06/26/2022 CNFL PCR, Rapid, V 5:47 PM CDT Comment: ----ADDITIONAL INFORMATION---- This RT-PCR test was performed using the Richard SARS-CoV-2 and Influenza A/B Reagent assay from [employer], which has received Emergency Use Authori zation(EUA) by the U.S. Food and Drug Administration . Fact sheets for this Emergency Use Autho rization (EUA) assay can be found at the following link s: For Healthcare Providers: https://www.fda.gov/media/863096/downloa d For Patients: https://www.fda.gov/media/368069/downloa d SARS Coronavirus 2, Source, Rapid Swab, Nasopharynx 06/26/2022 5:26 PM CDT CNFL Specimen Anatomical Collection Method Collection Time Receive d Time (Source) Location / / Volume Laterality Swab 06/26/2022 5:23 PM 5:26 (Nasopharynx) CDT PM CDT Jill Stewart APRN C.N.P., R.N. LAB MICROBIOLOG Y - GENERAL ORDERABLES Performing Organization Address [facility] Phon e Number [address] [place] [address] System in [address] documented in this encounter Visit Diagnoses Diagnosis Spasm Muscle - Primary Pain Neck Viral Syndrome documented in this encounter Administered Medications Inactive Administered Medications - up to 3 most recent administrations Medication Order MAR Action Action Date Dose Rate Site diazePAM tablet 10 mg (VALIUM) Given 06/26/2022 5:15 PM CDT 10 mg 10 mg, oral, Once, On Sat06/26/22 at 1710, For 1 dose ketorolac injection 15 mg (TORADOL) Given 06/26/2022 5:16 PM CDT 15 mg Left Deltoid 15 mg, intramuscular, Once, On Sat06/26/22 at 1710, For 1 dose, Adult IV push rate: Over 15 seconds. Peds IV push rate: Over 1 minute. 60 mg dose only for IM, not recommended for IV. lidocaine 5 % 1 patch Medication Applied 06/26/2022 5:38 PM CDT 1 pat ch Other (LIDODERM) 1 patch, transdermal, Administer over 12 Hours, Once, On Sat06/26/22 at 1710, For 1 dose, Remove after 12 hours. predniSONE tablet 60 mg (DELTASONE) Given 06/26/2022 5:16 PM CDT 60 mg 60 mg, oral, Once, On Sat06/26/22 at 1710, For 1 dose documented in this encounter Active and Recently Administered Medications Times are shown in CDT. Scheduled Medication Order 06/24/2022 06/25/2022 06/26/2022 diazePAM tablet 10 mg (VALIUM) (COMPLETED) 1714 (Given - Provider: Kyra Vazquez R.N.) 10 mg, oral, Once, On Sat06/26/22 at 1710, For 1 dose ketorolac injection 15 mg (TORADOL) (COMPLETED) 1715 (Given - Provider: Kyra Vazquez R.N.) 15 mg, intramuscular, Once, On 06/26 at 1710, For 1 dose, Adult IV push rate: Over 15 seconds. Peds IV push rate: Over 1 minute. 60 mg dose only for IM, not recommended for IV. lidocaine 5 % 1 patch (LIDODERM) 173 (Medication Applied - Provider: Kyra Vazquez R.N. - Comment: posterior neck)182 (Due: Medication Removed - Provider: Discharge Provider, Automatic - Comment: Time automatically adjusted from order being discontinued) 1 patch, transdermal, Administer over 12 Hours, Once, On Sat06/26/22 at 1710, For 1 dose, Remove after 12 hours. predniSONE tablet 60 mg (DELTASONE) (COMPLETED) 1715 (Given - Provider: Kyra Vazquez RAnneliese) 60 mg, oral, Once, On Sat06/26/22 at 1710, For 1 dose documented in this encounter Additional Health Concerns Infection Onset Date Last Indicated Resolved Time COVID19 Pending 06/26/2022 06/26/2022 06/26/2022 5:47 PM CDT documented as of this encounter Care Teams Castables Worker Relationship Specialty Start Date End Date Unassigned, Pcp PCP - General Family Medicine 04/22/19 documented as of this encounter
--- OUTSIDE RECORDS SUMMARY | 2022-08-29 12:14 | XMS_ITS | Encounter Summary ---
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
--- OUTSIDE RECORDS SUMMARY | 2022-08-29 12:14 | XMS_ITS | Clinical Summary ---
:1975 Author Organization [facility] Address [address] [place] [address] Care Team Providers Name Role Phone Unassigned, Pcp Primary Care Provider Unavailable Source Comments Patient records contain information from all sites at [facility]. For routine questions regarding patient records, call [phone] during business hours, M-F 8:00 AM - 5:00 PM Central Time. Record requests for emergency care only can be directed to [phone] at any time.[facility] Allergies Active Allergy Reactions Severity Noted Date Comments Bupropion GI intolerance 09/24/2016 Erythromycin GI intolerance 06/01/2011 Erythromycin Base GI intolerance 02/03/2006 Mold Other (see comments) 08/22/2012 Pollen Extracts Other (see comments) 08/22/2012 Medications Medication Sig Dispensed Refills Start Date End Date Status ibuprofen Take 200 mg by 0 Activ e (for_ADVIL,MOTRIN) 200 mouth. mg capsule albuterol Inhale 2 puffs 1 Inhaler 3 10/21/2017 Acti ve (for_PROVENTIL every 4 (four) HFA,VENTOLIN HFA) 90 hours as needed mcg/actuation inhaler for wheezing. methylphenidate HCl Take 18 mg by 0 Active (CONCERTA) 18 mg CR mouth daily. tablet fluticasone (FLONASE) Administer 2 54 g 3 06/04/2018 Active 50 mcg/actuation nasal sprays into each spray nostril 2 (two) times a day. traZODone (DESYREL) 50 Take 2 tablets 60 tablet 0 06/07/2018 Active mg tablet (100 mg total) by mouth at bedtime. HYDROcodone-acetaminop Take 2 tablets by 6 tablet 0 9 Active hen (NORCO) 5-325 mg mouth every 6 per tabletIndications: (six) hours as Acute Pain needed for pain Indication: Acute Pain. BREO ELLIPTA 200-25 INHALE ONE PUFF 180 each 3 10/27/2018 Active mcg/dose inhaler DAILY citalopram (CeleXA) 20 TAKE ONE AND 135 tablet 3 10/27/2018 Active mg tablet ONE-HALF TABLETS BY MOUTH ONCE DAILY Additional Information Patient not taking. Reported on 06/26/2022 ketorolac (TORADOL) 10 mg Take 1 tablet (10 mg 20 tablet 0 Active tablet total) by mouth every 6 (six) hours as needed for pain. MAGNESIUM ORAL Take 100 mg by mouth at 0 Active bedtime. UNABLE TO FIND Night Splint for 0 04/12/2021 Active plantar fascitis as needed LORATADINE-PSEUDOEPHEDRINE as needed. 0 Active ORAL LORazepam (ATIVAN) 0.5 mg as needed. 0 Active tablet omeprazole (PriLOSEC) [address] Take 20 mg by mouth. 0 11/02/2019 Active capsule cyclobenzaprine (FLEXERIL) 10 Take 1 tablet (10 mg 10 tablet 0 06/26/2022 Active mg tablet total) by mouth 3 (three) times a day as needed for muscle spasms for up to 10 days. 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 Pain Neck ; Viral Syndrome from Last 3 Months Immunizations Name Administration Dates Next Due HepB, Unspecified 03/03/2012, 11/07/2011, 10/04/2011 Influenza Split 07/17/2006 Influenza TIV (IM) 06/01/2013, 06/04/2012, 07/04/2007 Influenza, Unspecified 07/11/2017, 07/02/2014, 06/16/2013, 07/04/2007 PPD Test 11/07/2011, 10/08/2011 PPSV23 03/16/2004 Td (Adult), adsorbed 04/05/2003 Td, (Adult) Unspecified 02/14/2003 Tdap 01/04/2021, 01/26/2011 influenza vaccine quad 07/27/2020, 06/15/2019 (FLUZONE/FLUARIX) (6 months and older)(PF) Family History Medical History Relation Name Comments Stroke Maternal Grandmother Relation Name Status Comments Maternal Grandmother Social History Tobacco Use Types Packs/Day Years Used Date Smoking Tobacco: Never Smokeless Tobacco: Never Tobacco Cessation: Counseling Given: Yes Alcohol Use Standard Drinks/Week Comments No 0 (1 standard drink = 0.6 oz pure alcoho l) Sex Assigned at Date Recorded Female 02/11/2018 8:36 AM CDT Last Filed Vital Signs Vital Sign Reading Time Taken Comments Blood Pressure 122/69 06/26/2022 6:25 PM CDT Pulse 62 06/26/2022 6:25 PM CDT Temperature 36.2 ??C (97.2 ??F) 06/26/2022 6:25 PM CDT Respiratory Rate 14 06/26/2022 6:25 PM CDT Oxygen Saturation 100% 06/26/2022 5:15 PM CDT Inhaled Oxygen Concentration - - Weight 75.8 kg (167 lb 1.7 oz) 06/26/2022 4:51 PM CDT Height 172.7 cm (5' 8) 06/03/2021 8:34 AM CDT Body Mass Index 25.41 06/03/2021 8:34 AM CDT Plan of Treatment Health Maintenance Due Date Last Done Comments CT Colonography 1975 Cologuard 1975 Colonoscopy 1975 Colorectal Cancer Screening 1975 Depression Monitoring (PHQ-9) 1975 FIT 1975 HIV Screening 1975 Hepatitis C Screening 1975 Pneumococcal vaccine (0-64 years) 03/16/2005 03/16/2004 (2 - PCV) Asthma Action Plan 04/06/2017 04/06/2016 Asthma Control Test Questionnaire 04/06/2017 04/06/2016 Mammogram 11/14/2017 11/14/2016 (Performed elsewhere), 08/11/2016 COVID-19 Vaccine (3 - Booster for 09/01/2021 07/07/2021, Jose Antonio series) Fasting Glucose for Diabetes 07/27/2024 07/27/2021, 021, Screening 01/04/2021, Additional history exists Lipid (Cholesterol) Screening 07/27/2026 07/27/2021, 2019, 02/13/2018, Additional history exists DTaP,Tdap,and Td Vaccines (3 - Td 01/04/2031 01/04/2021, , or Tdap) 04/05/2003, Additional history exists Hepatitis B Vaccines Completed 03/03/2012, 11/07/2011, 10/04/2011 Influenza Vaccine Completed 08/02/2022, 06/23/2021, 07/27/2020, Additional history exists Medical Devices Implanted Type Area Treating And Pumping Supervisor Device Shelf Model / Identifier Expiration Date Ser ial / Lot Mesh Or Patch Mesh or Heart Patch Description: Amplatzer Septal Occluder Asd Closure Device 34mm - Sanders [id number] Septal Defect Occluder Other/Legacy - See Implant Implanted: Qty: 1 on 06/20/2006 Device Description Description: Device Treating And Pumping Supervisor - MISAEL Se dinh. Device Status Text - [id number]. Procedures Procedure Name Priority Date/Time Associated Comments Diagnosis DX CERVICAL SPINE RAD - Semiurgent 06/26/2022 6:10 Res ults for this 2-3 VIEWS (Fast; most ED PM CDT procedure are in patients; some the results inpatients) section. SARS CORONAVIRUS 2, STAT 06/26/2022 5:23 Resul ts for this PCR RAPID, V PM CDT procedure are i n the results section. from Last 3 Months Results DX Cervical Spine 2-3 Views (06/26/2022 [...] report. A Jill Stewart APRN, C.N.P., R.N. IM DIAGNOSTIC IMAGING PROCEDURES SARS Coronavirus 2, PCR Rapid, V Symptomatic (06/26/2022 5:23 PM CDT) [facility] Method Time Signature SARS CoV-2, Undetected Undetected 06/26/2022 CNFL PCR, Rapid, V 5:47 PM CDT Comment: ----ADDITIONAL INFORMATION---- This RT-PCR test was performed using the Richard SARS-CoV-2 and Influenza A/B Reagent assay from [employer], which has received Emergency Use Authori zation(EUA) by the U.S. Food and Drug Administration . Fact sheets for this Emergency Use Autho rization (EUA) assay can be found at the following link s: For Healthcare Providers: https://www.fda.gov/media/020639/downloa d For Patients: https://www.fda.gov/media/141185/downloa d SARS Coronavirus 2, Source, Rapid Swab, Nasopharynx 06/26/2022 5:26 PM CDT CNFL Specimen Anatomical Collection Method Collection Time Receive d Time (Source) Location / / Volume Laterality Swab 06/26/2022 5:23 PM 5:26 (Nasopharynx) CDT PM CDT Javier Wallis APRNN.P., R.N. LAB MICROBIOLOG Y - GENERAL ORDERABLES Performing Organization Address City/State/[facility] Code Phon e Number [address] [address] [place] [address] System in [address] from Last 3 Months Insurance Payer Benefit Plan / Subscriber ID Effective Phone Address T ype Group Dates PREFERREDONE PREFERREDONE [id number] 2019-Pre [phone] PPO ADMINISTRATIVE ADMINISTRATIVE sent [phone] SERVICES SERVICES [place] [id number] Care Teams Sales Representative Meats Relationship Specialty Start Date End Date Unassigned, Pcp PCP - General Family Medicine 04/22/19
--- OUTSIDE RECORDS SUMMARY | 2022-08-29 12:14 | XMS_ITS | Encounter Summary ---
:1975 Author Organization [facility] Address [address] [place] [address] Care Team Providers Name Role Phone Unassigned, Pcp Primary Care Provider Unavailable Reason for Visit Reason Comments Post Ed Visit Follow-up Seen on 06/03/21 for Abdomina l Pain, began 05/31/21 Dull, constant, ache in her upper gut area. Loss of appetite, nausea constantly since. Appointment Request (Routine) - Closed Specialty Diagnoses / Procedures Referred By Contact Refer red To Contact Family Medicine Referral ID Status Reason Start Date Expiration Date Visits Requ ested Visits Authorized [id number] Closed 07/15/2018 07/15/2019 1 Encounter Details Date Type Department Care Team Description 06/09/2021 Office Visit Department of Family Vanessa Van Pai n Epigastric (Primary Dx); Medicine, [place] [facility], in [address] [id number] Social History Tobacco Use Types Packs/Day Years Used Date Smoking Tobacco: Never Smokeless Tobacco: Never Tobacco Cessation: Counseling Given: Yes Alcohol Use Standard Drinks/Week Comments No 0 (1 standard drink = 0.6 oz pure alcoho l) Sex Assigned at Date Recorded Female 02/11/2018 8:36 AM CDT documented as of this encounter Last Filed Vital Signs Vital Sign Reading Time Taken Comments Blood Pressure 132/84 06/09/2021 2:36 PM CDT Pulse 72 06/09/2021 2:36 PM CDT Temperature 36.3 ??C (97.3 ??F) 06/09/2021 2:36 PM CDT Respiratory Rate 15 06/09/2021 2:36 PM CDT Oxygen Saturation 100% 06/09/2021 2:36 PM CDT Inhaled Oxygen Concentration - - Weight 97.8 kg (215 lb 9.8 oz) 06/09/2021 2:36 PM CDT Height - - Body Mass Index 32.78 06/03/2021 8:34 AM CDT documented in this encounter Patient Instructions Patient InstructionsVanessa Van P.A.-C., P.A. - 06/09/2021 2:30 PM CDT Protonix 40mg twice daily for 3 weeks, then once daily for 3 weeks Can use tums, rolaids or pepcid with this Avoid NSAIDs -ibuprofen, aleve or advil Tylenol is safe Zofran for nausea documented in this encounter Progress Notes Vanessa Van P.A.-C., P.A. - 06/09/2021 2:30 PM CDT SUBJECTIVE CHIEF COMPLAINT/REASON FOR VISIT Alcon Zamora is a 45 y.o. female who presents for evaluation of Post Ed Visit Follow-up (Seen on 06/03/21 for Abdominal Pain, began 05/31/21 Dull, constant, ache in her upper gut area. Loss of appetite, nausea constantly since.). HISTORY OF PRESENT ILLNESS Jose is a pleasant 45-year-old female who presents today for post ER follow-up. She states she developed epigastric abdominal pain 10 days ago with associated nausea, vomiting, chills and diarrhea. She presented to the ER 2 days later and underwent lab work and a chest x-ray. Her labs were significant for a mildly elevated CRP. Liver enzymes and CBC were normal. Chest x-ray was normal. COVID testingwas negative. She was told that her symptoms were likely viral. She does have a history of cholecystectomy in September of 2020. He she has been continuing to treat her symptoms conservatively. As of Saturday many of her symptoms have resolved including the chills and diarrhea. As the week has progressed however, she has continuedto have epigastric pain that develops about an hour after eating, belching and stomach gurgling. Shehas tried Tums [id number]-[id number] which do help for just a few minutes. Denies any black or bloody stools. She does not have any NSAID use. PHYSICAL EXAMINATION Vital Signs: BP 132/84 (BP Location: Left arm, Patient Position: Sitting, Cuff Size: Regular) Pulse 72 Temp 36.3 ??C (Temporal) Resp 15 Wt 97.8 kg SpO2 100% BMI 32.78 kg/m?? Body mass indexis 32.78 kg/m??. General: This patient is alert and in no acute distress. HEENT: Pupils are PERRLA, conjunctivae clear without hemorrhages or exudates. Respiratory: Effort is easy, lung sounds are clear to auscultation. Cardiovascular: S1 and S2 are present, normal rate and rhythm. Abdomen: Soft, epigastric tenderness to light and deep palpation without rebound or guarding, bowel sounds present. Psych: Behavior, mood, affect, cognition and insight are all appropriate. ASSESSMENT / PLAN 1. Pain Epigastric 2. Gastritis Symptoms are consistent with gastritis +/- associated enteritis. Recommended Protonix 40 mg b.i.d. for 3 weeks followed by once daily thereafter. In the interim, we have an H pylori breath test and lipase pending. If her symptoms worsen or she develops any fever, chills, worsening abdominal pain, black or bloody stools over the weekend she should present to the ER. She expressed understanding. - Helicobacter pylori Breath Test - Lipase Plan was discussed with patient and is in agreement with plan. All questions were answered, side effects of any/all new medications were discussed. Patient left in no acute distress. Ready to learn. No apparent learning barriers were identified. Learning preferences include listening. Explained diagnosis and treatment plan. Patient/Child/Caregiver expressed understanding of the content. Total time: 25 minutes Vanessa Van P.A.-C., P.A. documented in this encounter Plan of Treatment Not on filedocumented as of this encounter Procedures Procedure Name Priority Date/Time Associated Diagnosis Comme nts H. PYLORI C UREA Routine 06/09/2021 3:16 PM Pain Epigastric Re sults for this BREATH TEST CDT procedure are i n the results section. LIPASE, S/P Routine 06/09/2021 3:16 PM Pain Epigastric Result s for this CDT procedure are i n the results section. documented in this encounter Results Helicobacter pylori Breath Test (06/09/2021 3:16 PM CDT) athologist Signature H. pylori C Negative Negative 06/11/2021 [facility] Urea Breath 11:41 AM CDT Test Comment: Result indicates the absence of current Helicobacter pylori infection. Specimen Anatomical Collection Method Collection Time Receive d Time (Source) Location / / Volume Laterality Breath (Mouth) 06/09/2021 3:16 PM 7:42 CDT AM CDT Narrative [facility] SUPPORT JANET R - 06/11/2021 11:41 AM CDT Specimen Information: Specimen ID: [id number] Specimen Type: Breath Specimen Collection Start Date: 06/09/20 ??3:16 PM Specimen Received Date: 06/10/2021 ??7:4 2 AM Specimen ID: [id number] Specimen Type: Breath Specimen Collection Start Date: 06/09/20 ??3:16 PM Specimen Received Date: 06/10/2021 ??7:4 2 AM Vanessa Van P.A.-C., P.A. LAB MICROBIOLOGY - GENERA L ORDERABLES Performing Organization Address City/State/[facility] Code Phon e Number [facility] [address] [place] [address] SU[facility]ENTER [facility] [place] [address] Laboratory Medicine and Pathology [address] [place] [address] Dr. ELLINGTON Lipase (06/09/2021 3:16 PM CDT) athologist Signature Lipase, P 26 13 - 60 U/L 06/09/2021 3:53 CNFL PM CDT Specimen Anatomical Collection Method Collection Time Receive d Time (Source) Location / / Volume Laterality Blood (Blood, 06/09/2021 3:16 PM 06/09/20 3:20 Venous) CDT PM CDT Vanessa Van P.A.-C., P.A. LAB BLOOD ADD-ON Performing Organization Address City/State/ZIP Code Phon e Number [facility]- [address] [place] [address] [place] [address] [place] [address] System [address] documented in this encounter Visit Diagnoses Diagnosis Pain Epigastric - Primary Gastritis documented in this encounter Care Teams Assistant Center Director Relationship Specialty Start Date End Date Unassigned, Pcp PCP - General Family Medicine 04/22/19 documented as of this encounter
--- OUTSIDE RECORDS SUMMARY | 2022-08-29 12:14 | XMS_ITS | Encounter Summary ---
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
--- OUTSIDE RECORDS SUMMARY | 2022-08-29 12:14 | XMS_ITS | Encounter Summary ---
:1975 Author Organization [facility] Address [address] [place] [address] Care Team Providers Name Role Phone Unassigned, Pcp Primary Care Provider Unavailable Encounter Details Date Type Department Care Team Description 08/09/2021 Admin Visit Department of [facility] Anthony Schmidt, Medicine, [facility] 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
--- OUTSIDE RECORDS SUMMARY | 2022-08-29 12:14 | XMS_ITS | Encounter Summary ---
:1975 Author Organization [facility] Address [address] [place] [address] Care Team Providers Name Role Phone Unassigned, Pcp Primary Care Provider Unavailable Reason for Visit Reason Onset Date Comments Testing For Upper Respiratory Virus Symptoms 10/26/2020 Encounter Details Date Type Department Care Team Description 10/26/2020 External Outreach Department of Deidra Rodriguez Contact With And MedicineSe APRN, C.N.P., (Suspected) Professional and D.N.P. Exposure To [facility] in [address] [place] [address] lvd COVID-19 (Primary [place], [place] Dx) [address] [address] [place], [place] [phone] (Work) [phone] Social History Tobacco Use Types Packs/Day Years Used Date Smoking Tobacco: Never Smokeless Tobacco: Never Alcohol Use Standard Drinks/Week Comments No 0 (1 standard drink = 0.6 oz pure alcoho l) Sex Assigned at Date Recorded Female 02/11/2018 8:36 AM CDT documented as of this encounter Progress Notes Lilliana Vazquez RPeter. - 10/26/2020 3:24 PM CST Encounter created for symptomatic infectious disease screening with possible COVID, Influenza, RSV, and/or Group A Strep testing. [employer] ATTENDANTS AND TRAINERS documented in this encounter Plan of Treatment Not on filedocumented as of this encounter Visit Diagnoses Diagnosis Contact With And (Suspected) Exposure To COVID-19 - Primary documented in this encounter Additional Health Concerns Infection Onset Date Last Indicated Resolved Time COVID19 Pending 10/25/2020 10/26/2020 10/27/2020 9:59 AM ANIMAL ATTENDANTS AND TRAINERS documented as of this encounter Care Teams Kindergartners Helper Relationship Specialty Start Date End Date Unassigned, Pcp PCP - General Family Medicine 04/22/19 documented as of this encounter
--- OUTSIDE RECORDS SUMMARY | 2022-08-29 12:14 | XMS_ITS | Encounter Summary ---
:1975 Author Organization [facility] Address [address] [place] [address] Care Team Providers Name Role Phone Unassigned, Pcp Primary Care Provider Unavailable Reason for Visit Reason Comments Abdominal Pain started on 05/31 Encounter Details Date Type Department Care Team Description 06/03/2021 Emergency [facility] Dillan Phillips V iral Syndrome (Primary Dx); Department C.N.P. Cough (Concern For Covid-19) [address] [place] [address] [address] HospitalC[facility]iers[place], [place] [address] [place], [place] [phone] (Wo rk) Social History Tobacco Use Types Packs/Day Years Used Date Smoking Tobacco: Never Smokeless Tobacco: Never Alcohol Use Standard Drinks/Week Comments No 0 (1 standard drink = 0.6 oz pure alcoho l) Sex Assigned at Date Recorded Female 02/11/2018 8:36 AM CDT documented as of this encounter Last Filed Vital Signs Vital Sign Reading Time Taken Comments Blood Pressure 130/68 06/03/2021 11:15 AM CDT Pulse 74 06/03/2021 11:28 AM CDT Temperature 36.7 ??C (98.1 ??F) 06/03/2021 10:45 AM CDT Respiratory Rate 16 06/03/2021 8:32 AM CDT Oxygen Saturation 95% 06/03/2021 11:28 AM CDT Inhaled Oxygen Concentration - - Weight 98.4 kg (216 lb 14.9 oz) 06/03/2021 8:34 AM CDT Height 172.7 cm (5' 8) 06/03/2021 8:34 AM CDT Body Mass Index 32.98 06/03/2021 8:34 AM CDT documented in this encounter Discharge Instructions Discharge InstructionsDillan Phillips, C.N.P. - 06/03/2021 11:19 AM CDT Use the Toradol and Zofran as directed for nausea and aches and pains. Increase fluids as we discussed. No other NSAIDs including ibuprofen, Aleve, aspirin with the Toradol. Follow-up with primary carein 5-7 days if you are still not improving. The COVID test will be populated in your portal. COVID-19 disease from Coronavirus is rapidly changing. We recognize the uncertainty you may feel at this time, and want to assure you that [facility] is committed to your health and safety. To stay informed, it is highly recommended you seek information from a website that has the most accurate and recent information such as the CDC: https://www.cdc.gov/coronavirus/2019-ncov/downloads/hubc-brxa-8427- aRdC-ghvx-jiyxx.pdf Silva Messages from the Droid system master link above. Stay home except to get medical care Separate yourself from other people and animals in your home Call ahead before visiting your doctor Wear a facemask Cover your nose and mouth when coughing or sneezing Avoid sharing personal household items Clean all ???high-touch?? surfaces every day If test results are negative, patients will receive a message through Patient Online Services when resulted. If they are not active in Patient Online Services, they will receive a phone call. If test results are positive, patients will be contacted by a [facility] provider. AttachmentsThe following attachments cannot be sent through Care Everywhere. Viral Illness Adult (Italian)Cough Adult [id number] (Italian)documented in this encounter Medications at Time of Discharge Medication Sig Dispensed Refills Start Date End Date albuterol (for_PROVENTIL Inhale 2 puffs 1 Inhaler 3 018 HFA,VENTOLIN HFA) 90 every 4 (four) mcg/actuation inhaler hours as needed for wheezing. BREO ELLIPTA 200-25 INHALE ONE PUFF 180 each 3 10/27/2018 mcg/dose inhaler DAILY fluticasone (FLONASE) 50 Administer 2 sprays 54 g 3 mcg/actuation nasal spray into each nostril 2 (two) times a day. citalopram (CeleXA) 20 mg TAKE ONE AND 135 tablet 3 10/27/19 19 tablet ONE-HALF TABLETS BY MOUTH ONCE DAILY HYDROcodone-acetaminophen Take 2 tablets by 6 tablet 0 (NORCO) 5-325 mg per mouth every 6 (six) tabletIndications: Acute hours as needed for Pain pain Indication: Acute Pain. ibuprofen Take 200 mg by 0 (for_ADVIL,MOTRIN) 200 mg mouth. capsule ketorolac (TORADOL) 10 mg Take 1 tablet (10 20 tablet 0 tablet mg total) by mouth every 6 (six) hours as needed for pain. methylphenidate HCl Take 18 mg by mouth 0 (CONCERTA) 18 mg CR daily. tablet omeprazole (PriLOSEC) 20 Take 20 mg by 0 11/02/[address] capsule mouth. traZODone (DESYREL) 50 mg Take 2 tablets (100 60 tablet 0 0 06/07/2018 tablet mg total) by mouth at bedtime. UNABLE TO FIND Night Splint for 0 04/12/2021 plantar fascitis as needed ondansetron ODT Take 1 tablet (4 mg 20 tablet 0 06/03/2021 06/13/2021 (ZOFRAN-ODT) 4 mg total) by mouth disintegrating tablet every 8 (eight) hours for 10 days. cyclobenzaprine Take 10 mg by 0 05/16/20122021 (for_FLEXERIL) 10 mg mouth. tablet ondansetron (ZOFRAN) 4 mg Take 4 mg by mouth. 0 0 11/02/2019 06/09/2021 tablet traZODone (DESYREL) 50 mg Take 2 tablets (100 60 tablet 11 1 10/30/2017 06/09/2021 tablet mg total) by mouth at bedtime. documented as of this encounter ED Notes Dillan Phillips C.N.P. - 06/03/2021 9:26 AM CDT SUBJECTIVE CHIEF COMPLAINT / REASON FOR VISIT Abdominal Pain (started on 05/31) HISTORY OF PRESENT ILLNESS Alcon Zamora is a 45 y.o. who has a past medical history of Anxiety Generalized Disorder, Asthma NOS, Blood Transfusion No Diagnosis, Chronic Obstructive Pulmonary Disease (HCC), Depressive Disorder, and Eczema. who presents to the Emergency Department with complaints of upper abdominal pain. Patient was seen in the [facility] for the same complaints on , she was COVID tested at that time however there is no results. Patient states Saturday she developed kind of upper abdominal pain which radiates up underneath her ribs. She has nausea but no appetite. She is having diarrhea. She has body aches, and chills. At time she does feel short of breath and she specifically noticeswhen she is climbing up the stairs, she has been using her inhalers. She started coughing today, butno pleuritic chest pain. She has no history of estrogen, no travel, no history of unilateral leg swelling and no history of clots within the family. Her cough is nonproductive. As far as COVID risk she is fully vaccinated with the [employer] shot in November, she has no known exposures however she did attend the [employer] [place] last week, she was not masked, and she states there was a large amount of people around. Saturday she was given a Medrol Dosepak, she did not pickit up due to her investigation of Medrol and COVID so she is holding off on that. She returns today as she is just not feeling improved, she is feeling worse for of further evaluation. History provided by: Patient REVIEW OF SYSTEMS Constitutional: Positive for activity change, appetite change, chills, diaphoresis and fatigue. Negative for fever. HENT: Negative for sinus pressure and sore throat. Respiratory: Positive for cough, chest tightness and shortness of breath. Cardiovascular: Negative for chest pain. Gastrointestinal: Positive for abdominal pain and nausea. Negative for constipation, diarrhea and vomiting. Genitourinary: Positive for decreased urine volume. Negative for dysuria, frequency and urgency. Musculoskeletal: Positive for myalgias. Negative for arthralgias. Skin: Negative for rash. Allergic/Immunologic: Negative for immunocompromised state. Neurological: Positive for weakness. Negative for dizziness and headaches. Hematological: Negative for adenopathy. Does not bruise/bleed easily. All other systems reviewed and are negative. CURRENT MEDICATIONS Reviewed in medical record. ALLERGIES / CONTRAINDICATIONS Reviewed in medical record. MEDICAL HISTORY Past Medical History: Diagnosis Date ??? Anxiety Generalized Disorder ??? Asthma NOS ??? Blood Transfusion No Diagnosis ??? Chronic Obstructive Pulmonary Disease (HCC) ??? Depressive Disorder ??? Eczema Patient Active Problem List Diagnosis ??? Depression Major Recurrent Severe (HCC) ??? Depression Major Recurrent Mild (HCC) ??? Asthma NOS ??? Attention Deficit Disorder Inattentive ??? Lizy Danlos Syndrome ??? Proteinuria ??? Chronic Kidney Disease Stage 1 Glomerular Filtration Rate Greater Than 90 SURGICAL HISTORY Past Surgical History: Procedure Laterality Date ??? ABDOMINAL HYSTERECTOMY N/A 01/14/2006 H/O: hysterectomy ??? ASD REPAIR N/A 06/20/2006 >Device closure of ostium secundum atrial septal defect with 34mm Amplatz atrial septal occluder, intracardiac ??? CARDIAC SURGERY ??? DILATATION AND CURETTAGE ??? DILATION AND CURETTAGE N/A 1995 Dilation and curettage ??? HYSTERECTOMY ??? LIGATION OF FALLOPIAN TUBE N/A Tubal ligation ??? OTHER SURGICAL HISTORY ??? TUBAL LIGATION FAMILY HISTORY Reviewed in chart SOCIAL HISTORY Social History Tobacco Use ??? Smoking status: Never Smoker ??? Smokeless tobacco: Never Used Substance Use Topics ??? Alcohol use: No Social History Substance and Sexual Activity Drug Use No OBJECTIVE INITIAL VITAL SIGNS: Initial Vitals [06/03/21 0832] Temperature Pulse Rate Heart Rate Resp Rate Blood Pressure SpO2 37.1 ??C 110 -- 16 (!) 146/95 95 % Pain Score 8 Wt Readings from Last 3 Encounters: 06/03/21 98.4 kg 06/23/19 95 kg 10/10/18 94.7 kg PHYSICAL EXAMINATION Constitutional: Nursing note and vitals reviewed. No distress. HENT: Mouth/Throat: Oropharynx is clear and moist. Mucous membranes are moist. No tonsillar exudate. Eyes: Conjunctivae and EOM are normal. Pupils are equal, round, and reactive to light. Neck: Neck supple. Cardiovascular: Normal rate, regular rhythm, S1 normal, S2 normal and normal heart sounds. Pulses are strong and palpable. No murmur heard.Capillary refill: takes less than 3 seconds, Pulmonary/Chest: Effort normal and breath sounds normal. There is normal air entry. No respiratory distress. Abdominal: Soft. Bowel sounds are normal. exhibits no distension. There is abdominal tenderness (Right mid abdomen and right upper abdomen (status post cholecystectomy)). There is no rebound and no guarding. Musculoskeletal: General: Normal range of motion. Cervical back: Normal range of motion and neck supple. Lymphadenopathy: She has no cervical adenopathy. Neurological: Alert and oriented to person, place, and time. No cranial nerve deficit. Skin: Skin is warm, dry and intact. Psychiatric: She has a normal mood and affect. DIAGNOSTICS Labs: Labs Reviewed CBC WITH DIFFERENTIAL, B - Abnormal Result Value Hemoglobin 15.3 (*) Hematocrit 45.7 (*) Erythrocytes 5.07 MCV 90.1 RBC Distrib Width 12.0 (*) Platelet Count 216 Leukocytes 7.0 Neutrophils 4.55 Lymphocytes 1.82 Monocytes 0.44 Eosinophils 0.20 Basophils 0.03 C-REACTIVE PROTEIN (CRP), S/P - Abnormal C-Reactive Protein (CRP), P 13.6 (*) SARS CORONAVIRUS-2 RNA, V BASIC METABOLIC PANEL, S/P Potassium, P 4.5 Sodium, P 138 Chloride, P 102 Bicarbonate, P 26 Anion Gap, P 10 BUN (Blood Urea Nitrogen), P 12 Creatinine, P 0.74 eGFR-Black/ >90 eGFR Non-Black/ >90 Calcium, Total, P 9.5 Glucose, P 98 HEPATIC FUNCTION PANEL, S Bilirubin, Total, P 0.9 Bilirubin, Direct, P <0.2 Aspartate Aminotransferase (AST), P 16 Alanine Aminotransferase (ALT), P 13 Alkaline Phosphatase, P 83 Albumin, P 4.2 Protein, Total, P 7.7 ECG: ECG 12 Lead Result Date: 06/03/2021 Normal sinus rhythm Left atrial enlargement Low anterior forces Nonspecific T wave abnormality When compared with ECG of 13-FEB-2018 07:48, No significant change was found Reviewed by MARIAH Katz Radiology: DX Chest AP or PA and Lateral 2 Views Final Result No new consolidation or infiltrate. Persistent left basilar atelectasis or scarring. Mild biapical scarring. Pectus excavatum with silhouetting of the right heart border. Atrial septal defect occluder. No pleural effusion. No pneumothorax. Right upper quadrant surgical clips. No significant change from 02/13/2018. [facility] No acute abnormalities - Dr. Bowman Procedures: See separate procedure note. ED COURSE: ED Course as of Jun 03 1350 Sat Jun 03, 2021 1000 SARS Coronavirus-2 RNA, V Final Diagnoses: as of Jun 03 1350 Viral Syndrome Cough (Concern For Covid-19) INTERVENTIONS: Medications lidocaine viscous 2 % 15 mL, alum-mag hydroxide-simeth 30 mL suspension (45 mL oral Given 06/03/2139) NaCl 0.9 % bolus 1,000 mL (0 mL intravenous Stopped 06/03/21 1049) ondansetron (PF) injection 4 mg (ZOFRAN) (4 mg intravenous Given 06/03/21938) ketorolac injection 15 mg (TORADOL) (15 mg intravenous Given 06/03/21 0940) ASSESSMENT / PLAN IMPRESSION AND PLAN Presents to the ED with a myriad of sx which would suggest a viremia. A differential diagnosis would include but not limited to, but was not limited to pneumonia, viral infection, common cold, viral pharyngitis, strep pharyngitis, tonsillitis, influenza, sinusitis, bronchitis, otitis media, otitis externa, serous otitis. Labs including CBC, CRP, BMP and hepatic function were without any significant findings. She appeared a little bit hemoconcentrated with hemoglobin/hematocrit as compared to her baseline, she was givena L of fluid for this. She was also given ketorolac IV. This did overall improve her symptoms. Chestx-ray without any infiltrates. EKG also was noncontributory Pt's symptoms are consistent with a viral illness cannot rule out COVID-19, a testing is pending.. No evidence for more malignant etiology at this time. Plan includes symptomatic treatment with Toradol, Zofran and treat as an outpatient. Patient was given red flag signs & symptoms that would require immediate followup or return to the ED. I reviewed previous medical records including lab results, EKG images/reports, radiology images/report and documentation from previous visits. I personally reviewed the lab result(s) and my interpretation is no significant findings. I personally reviewed the radiology image(s) and reviewed the radiology report(s). The Radiology exam interpretation(s) is/are normal. I independently reviewed the ECG tracing and my interpretation is non-specific. DIAGNOSIS: Final diagnoses: [B34.9] Viral Syndrome [R05] Cough (Concern For Covid-19) ED DISCHARGE MEDS: ED Prescriptions Medication Sig Dispense Start Date End Date Auth. Provider ketorolac (TORADOL) 10 mg tablet Take 1 tablet (10 mg total) by mouth every 6 (six) hours as neededfor pain. 20 tablet 06/03/2021 Dillan Phillips, C.N.P. ondansetron ODT (ZOFRAN-ODT) 4 mg disintegrating tablet Take 1 tablet (4 mg total) by mouth every 8(eight) hours for 10 days. 20 tablet 06/03/2021 06/13/2021 Dillan Phillips, C.N.P. DISPOSITION: Home or Self Care DISCHARGE VITAL SIGNS: Vitals: 06/03/21 1128 BP: Pulse: 74 Resp: Temp: SpO2: 95% FOLLOW UP: Contact Information for Follow-ups Unassigned, Pcp Specialty: Family Medicine, Geriatrics, Women's Health, Internal Medicine, Pediatrics Relationship: PCP - General Next Steps: Follow up Instructions: As needed Dillan Phillips, MELISA, PROCESS OWNER, BRICK POINTER-C, AGACNP-BC, ENP-C Emergency Medicine Dillan Phillips, C.N.P. 06/03/21 1350 Janna Cunningham R.N. - 06/03/2021 8:34 AM CDT 45 yr old female presents with abdominal pain under rib cage that wraps around to side. Stated that pain started on 05/31/21 and has gradually gotten worse. She states it feels worse after she eats or drinks. Also states she has had diarrhea for 2 days Janna Cunningham R.N. 06/03/21 0836 documented in this encounter Plan of Treatment Not on filedocumented as of this encounter Procedures Procedure Name Priority Date/Time Associated Comments Diagnosis DX CHEST AP OR PA RAD - Semiurgent 06/03/2021 10:44 Re sults for this AND LATERAL 2 (Fast; most ED AM CDT procedure ar e in VIEWS patients; some the results inpatients) section. SARS STAT 06/03/2021 9:35 Results for this CORONAVIRUS-2 AM CDT procedure are in RNA, V the results section. ECG STAT 06/03/2021 9:31 Results for this AM CDT procedure are i n the results section. HEPATIC FUNCTION STAT 06/03/2021 9:00 Results for this PANEL, S AM CDT procedure are i n the results section. CBC WITH STAT 06/03/2021 9:00 Results for this DIFFERENTIAL, B AM CDT procedure ar e in the results section. C-REACTIVE STAT 06/03/2021 9:00 Results for this PROTEIN (CRP), AM CDT procedure are in S/P the results section. BASIC METABOLIC STAT 06/03/2021 9:00 Results f or this PANEL, S/P AM CDT procedure are i n the results section. documented in this encounter Results DX Chest AP or PA and Lateral 2 Views (06/03/2021 10:44 AM CDT) Anatomical Region Laterality Modality Chest, Thoracic RST LOS, Thoracic ARZ LOS, Thoracic N/A Digital Radiography FLA LOS Specimen (Source) Anatomical Collection Method Collection Time Re ceived Time Location / / Volume Laterality 06/03/2021 11:21 AM CDT Impressions 06/03/2021 11:23 AM CDT No new consolidation or infiltrate. Persistent left basilar atelectasis or scarring. Mild biapical s carring. Pectus excavatum with silhouetting of the right heart border. Atrial septal defect occluder. No pleural effusion. No pneumothorax. Right upper quadrant surgical clips. No significant change from 02/13/2018. Narrative 06/03/2021 11:23 AM CDT EXAM: DX CHEST AP OR PA AND LATERAL 2 VIEWS Procedure Note Genet Christensen M.D. - 06/03/2021Form atting of this note might be different from the original. EXAM: DX CHEST AP OR PA AND LATERAL 2 EWS IMPRESSION: No new consolidation or infiltrate. Pers istent left basilar atelectasis or scarring. Mild biapical s carring. Pectus excavatum with silhouetting of the right heart border. Atrial septal defect occluder. No pleural effusion. No pneumothorax. Right upper quadrant surgical clips. No significant change from 02/13/2018. Dillan Phillips C.N.P. IMG DIAGNOSTIC IMAGING PROCE TYRONE SARS Coronavirus-2 RNA, V (06/03/2021 9:35 AM CDT) Patholo gist Method Time Signature SARS-CoV-2 Nasopharynx 06/03/2021 ECLR Specimen 10:35 PM CDT Source SARS CoV-2 Undetected Undetected 06/03/2021 ECLR RNA, TMA 10:35 PM CDT Comment: SARS-CoV-2 RNA absent. This result does not rule out COVID-19 in the patient, as the sensitivity of the test depends o n the timing of the specimen collection and the quality of the specim en. Result should be correlated with patient's history and clinical presentat ion. ----ADDITIONAL INFORMATION---- This molecular amplification test was pe rformed using the Aptima SARS-CoV-2 assay ([employer] on the [employer] tem under emergency use authorization (EUA) by the U.S. Food and Drug Administ ration. Fact sheets for this EUA assay can be fo und at the following links: For Healthcare Providers: https://www.[employer] a.gov/media/636924/download For Patients: https://www.fda.gov/media/ 649448/download Specimen Anatomical Collection Method Collection Time Receive d Time (Source) Location / / Volume Laterality Varies 06/03/2021 9:35 AM 3:10 CDT PM CDT Dillan Phillips C.N.P. LAB MICROBIOLOGY - GENERAL O RDERABLES Performing Organization Address City/State/ZIP Code Phon e Number [facility]- [address] [place] [address] [phone] [facility] [place] [address] System [address] ECG 12 Lead (06/03/2021 9:31 AM CDT) P athologist Signature Ventricular Rate 79 BPM MUSE ECG/Min NV Interval 150 ms MUSE QRSD Interval 84 ms MUSE QT Interval 364 ms MUSE QTC Interval 417 ms MUSE P [place] 49 degrees MUSE R [place] 75 degrees MUSE T Wave [place] 6 degrees MUSE Specimen Anatomical Collection Method Collection Time Receive d Time (Source) Location / / Volume Laterality 06/03/2021 9:31 AM 9:41 CDT AM CDT Impressions MUSE - 06/03/2021 9:41 AM CDT Normal sinus rhythm Left atrial enlargement Low anterior forces Nonspecific T wave abnormality When compared with ECG of 13-FEB-2018 07 :48, No significant change was found Reviewed by MARIAH Katz Narrative This result has an attachment that is no t available. Procedure Note Jasvir Ahuja M.D. - 06/03/2021Form atting of this note might be different from the original. IMPRESSION: Normal sinus rhythm Left atrial enlargement Low anterior forces Nonspecific T wave abnormality When compared with ECG of 13-FEB-2018 07 :48, No significant change was found Reviewed by MARIAH Katz Dillan Phillips C.N.P. ECG ORDERABLES Performing Organization Address City/State/ZIP Code Phon e Number [facility] NA (ABNORMAL) CRP (C-Reactive Protein) (06/03/2021 9:00 AM CDT) P athologist Signature C-Reactive 13.6 (H) <=8.0 mg/L 06/03/2021 CN[facility] Protein (CRP), 9:21 AM CDT P Specimen Anatomical Collection Method Collection Time Receive d Time (Source) Location / / Volume Laterality Blood (Blood, 06/03/2021 9:00 AM 06/03/20 9:01 Venous) CDT AM CDT Dillan Phillips C.N.P. LAB BLOOD ADD-ON Performing Organization Address City/State/[facility] Code Phon e Number [address] [phone] [place] [address] System [address] Hepatic Function Panel (06/03/2021 9:00 AM CDT) Patholo gist Method Time Signature Bilirubin, Total, P 0.9 <=1.2 06/03/2021 [facility] mg/dL 9:21 AM CDT Bilirubin, Direct, P <0.2 0.0 - 0.3 06/03/2021 [facility] mg/dL 9:21 AM CDT Aspartate 16 8 - 43 06/03/2021 [facility] Aminotransferase U/L 9:21 AM CDT (AST), P Alanine 13 7 - 45 06/03/2021 [facility] Aminotransferase U/L 9:21 AM CDT (ALT), P Alkaline 83 35 - 104 06/03/2021 [facility] Phosphatase, P U/L 9:21 AM CDT Albumin, P 4.2 3.5 - 5.0 06/03/2021 [facility] g/dL 9:21 AM CDT Protein, Total, P 7.7 6.3 - 7.9 06/03/2021 [facility] g/dL 9:21 AM CDT Specimen Anatomical Collection Method Collection Time Receive d Time (Source) Location / / Volume Laterality Blood (Blood, 06/03/2021 9:00 AM 06/03/20 9:01 Venous) CDT AM CDT Dillan Phillips C.N.P. LAB BLOOD ADD-ON Performing Organization Address City/State/ZIP Code Phon e Number [address] [phone] [place] [address] System [address] Basic Metabolic Panel (06/03/2021 9:00 AM CDT) P athologist Signature Potassium, P 4.5 3.6 - 5.2 06/03/2021 [facility] mmol/L 9:21 AM CDT Sodium, P 138 135 - 145 06/03/2021 [facility] mmol/L 9:21 AM CDT Chloride, P 102 98 - 107 06/03/2021 [facility] mmol/L 9:21 AM CDT Bicarbonate, P 26 22 - 29 06/03/2021 [facility] mmol/L 9:21 AM CDT Anion Gap, P 10 7 - 15 06/03/2021 [facility] 9:21 AM CDT BUN (Blood Urea 12 6 - 21 06/03/2021 [facility] Nitrogen), P mg/dL 9:21 AM CDT Creatinine 0.74 0.59 - 06/03/2021 [facility] 1.04 mg/dL 9:21 AM CDT eGFR-Black/Afric >90 >=60 06/03/2021 [facility] an Pakistani mL/min/BSA 9:21 AM CDT Comment: ----ADDITIONAL INFORMATION---- Estimated GFR calculated using the 2009 CKD_EPI creatinine equation. eGFR Non-Black/ >90 >=60 mL/min/BSA 06/03/2021 9:21 AM CDT CNFL Comment: ----ADDITIONAL INFORMATION---- Estimated GFR calculated using the 2009 CKD_EPI creatinine equation. Calcium, Total, P 9.5 8.6 - 10.0 mg/dL 06/03/2021 9:21 AM CDT CNFL Glucose, P 98 70 - 140 mg/dL 06/03/2021 9:21 AM CDT C NFL Specimen Anatomical Collection Method Collection Time Receive d Time (Source) Location / / Volume Laterality Blood (Blood, 06/03/2021 9:00 AM 06/03/20 9:01 Venous) CDT AM CDT Dillan Phillips C.N.P. LAB BLOOD ADD-ON Performing Organization Address City/State/ZIP Code Phon e Number [facility]- [address] [place] [phone] [place] [address] [place] [address] (ABNORMAL) CBC with Differential, Blood (06/03/2021 9:00 AM CDT) [facility] Method Time Signature Hemoglobin 15.3 (H) 11.6 - 06/03/2021 [facility] 15.0 g/dL 9:19 AM CDT Hematocrit 45.7 (H) 35.5 - 06/03/2021 CN[facility] 44.9 % 9:19 AM CDT Erythrocytes 5.07 3.92 - 06/03/2021 CN[facility] 5.13 9:19 AM CDT x10(12)/L MCV 90.1 78.2 - 06/03/2021 CN[facility] 97.9 fL 9:19 AM CDT RBC Distrib Width 12.0 (L) 12.2 - 06/03/2021 [facility] 16.1 % 9:19 AM CDT Platelet Count 216 157 - 371 06/03/2021 [facility] x10(9)/L 9:19 AM CDT Leukocytes 7.0 3.4 - 9.6 06/03/2021 [facility] x10(9)/L 9:19 AM CDT Neutrophils 4.55 1.56 - 06/03/2021 CNFL 6.45 9:19 AM CDT x10(9)/L Lymphocytes 1.82 0.95 - 06/03/2021 CNFL 3.07 9:19 AM CDT x10(9)/L Monocytes 0.44 0.26 - 06/03/2021 CNFL 0.81 9:19 AM CDT x10(9)/L Eosinophils 0.20 0.03 - 06/03/2021 CNFL 0.48 9:19 AM CDT x10(9)/L Basophils 0.03 0.01 - 06/03/2021 CNFL 0.08 9:19 AM CDT x10(9)/L Specimen Anatomical Collection Method Collection Time Receive d Time (Source) Location / / Volume Laterality Blood (Blood, 06/03/2021 9:00 AM 06/03/20 9:01 Venous) CDT AM CDT Dillan Phillips C.N.P. LAB BLOOD ADD-ON Performing Organization Address City/State/[facility] Phon e Number [address] [place] [address] [address] documented in this encounter Visit Diagnoses Diagnosis Viral Syndrome - Primary Cough (Concern For Covid-19) documented in this encounter Administered Medications Inactive Administered Medications - up to 3 most recent administrations Medication Order MAR Action Action Date Dose Rate Site ketorolac injection 15 mg (TORADOL) Given 06/03/2021 9:40 AM CDT 15 mg 15 mg, intravenous, Once, On 06/03/21 at 0923, For 1 dose, Adult IV push rate: Over 15 seconds. Peds IV push rate: Over 1 minute. 60 mg dose only for IM, not recommended for IV. lidocaine viscous 2 % 15 mL, alum-mag Given 06/03/2021 9:39 AM C DT 45 mL hydroxide-simeth 30 mL suspension 45 mL, oral, Once, On 06/03/21 at 0847, For 1 dose, Mix ingredients prior to administration NaCl 0.9 % bolus 1,000 mL New Bag 06/03/2021 9:39 AM CDT 1,000 mL 1000 mL/hr 1,000 mL, intravenous, at 1,000 mL/hr, Administer over 1 Hours, Once, On 06/03/21 at 0923, For 1 dose ondansetron (PF) injection 4 mg (ZOFRAN) Given 06/03/2021 9:39 AM CDT 4 mg 4 mg, intravenous, Once, On 06/03/21 at 0923, For 1 dose documented in this encounter Active and Recently Administered Medications Times are shown in CDT. Scheduled Medication Order 06/01/2021 06/02/2021 06/03/2021 ketorolac injection 15 mg (TORADOL) (COMPLETED) 939 (Given - Provider: Janna Cunningham R.N.) 15 mg, intravenous, Once, On 06/03/21 at 0923, For 1 dose, Adult IV push rate: Over 15 seconds. Peds IV push rate: Over 1 minute. 60 mg dose only for IM, not recommended for IV. lidocaine viscous 2 % 15 mL, alum-mag hy droxide-simeth 30 mL suspension (COMPLETED) 938 (Given - Provid er: Janna Cunningham R.N.) 45 mL, oral, Once, On 06/03/21 at 084 7, For 1 dose, Mix ingredients prior to administration NaCl 0.9 % bolus 1,000 mL (COMPLETED) 938 (New Bag - Provider: Janna Cunningham R.N.)1049 (Stopped - Provider: Kezia Alexander R.N.) 1,000 mL, intravenous, at 1,000 mL/hr, A dminister over 1 Hours, Once, On 06/03/21 at 0923, For 1 dose ondansetron (PF) injection 4 mg (ZOFRAN) (COMPLETED) 938 (Given - Provider: Janna Cunningham R.N.) 4 mg, intravenous, Once, On 06/03/21 at 0923, For 1 dose documented in this encounter Additional Health Concerns Infection Onset Date Last Indicated Resolved Time COVID19 Pending 06/03/2021 06/03/2021 06/03/2021 9:40 AM CDT COVID19 Pending 06/03/2021 06/03/2021 06/03/2021 10:36 PM CDT documented as of this encounter Care Teams Raise Driller Relationship Specialty Start Date End Date Unassigned, Pcp PCP - General Family Medicine 04/22/19 documented as of this encounter
--- OUTSIDE RECORDS SUMMARY | 2022-08-29 12:14 | XMS_ITS | Encounter Summary ---
:1975 Author Organization [facility] Address [address] [place] [address] Care Team Providers Name Role Phone Unassigned, Pcp Primary Care Provider Unavailable Reason for Visit Reason Comments ELISE Nurse Kalee Encounter Details Date Type Department Care Team Description 08/09/2021 Clinical Communication Division of EL[facility] Internal Singh Hartman [facility], [facility] in [place], [place] [address] [place] [address] Social History Tobacco Use Types Packs/Day Years Used Date Smoking Tobacco: Never Smokeless Tobacco: Never Alcohol Use Standard Drinks/Week Comments No 0 (1 standard drink = 0.6 oz pure alcoho l) Sex Assigned at Date Recorded Female 02/11/2018 8:36 AM CDT documented as of this encounter Miscellaneous Notes Telephone Encounter - Minnie Haywood R.N. - 08/09/2021 11:11 AM CST COVID-19 Nurse Line Screening ASSESSMENT Initial Screening Pathway Select appropriate pathway: : Adult In the last 48 hours, have you had a fever* OR symptoms that are unrelated to a preexisting illness?: New cough,New chills,New headache COVID Symptomatic Screening Do you have any of the following urgent symptoms?: No urgent symptoms noted (Continue Screening) Have you received a COVID-19 vaccine in the last 72 hours? : No vaccine received (Continue Screening) Have you had close contact* with a person who has a LABORATORY CONFIRMED case of COVID-19 in the past 14 days?: No (Continue Screening) Have you tested positive for COVID-19 in the last 45 days?: No. COVID-19 testing is indicated (Continue Screening for Additional Testing) Additional Screening for Influenza, RSV and Strep Select appropriate region: : [place] Do you have any of the following respiratory syntonical virus (RSV) complications? : No complications noted (Continue Screening) Do you have any of the following high risk influenza criteria?: No criteria noted (Continue Screening) Are all of the following Strep criteria met? : No, all criteria are not met. Influenza tesing is indicated. (End Screening) Symptom Onset Date of symptom onset: 08/06/21 Testing Recommendation Endpoint Is testing recommended? : Recommended to test Further Triage Needs Any further triage needs? : No further concerns noted. PLAN Endpoint recommendation: Symptomatic testing indicated, advised to be swabbed for COVID-19 and Influenza, sent to [facility] located at [address]. An appointment is required fortesting, please call [phone] Saturday-Saturday 7am to 6pm and Saturday & Saturday 9am to 4pm to schedule an appointment. Testing hours are 8am - 4:30pm daily. You can also schedule via your Patient Online Services account., Please avoid using public transportation per CDC recommendation. If you do not have personal transportation please self- quarantine until a personal transportation option is available. Standard Care Points -Get a COVID -19 vaccine as soon as you can if not fully vaccinated. -Wash hands frequently with soap and water, use hand landscape management technician if soap and water aren't available. -Wear a mask over your nose and mouth to help protect yourself and others if not fully vaccinated and having no symptoms -Stay 6 feet between yourself and others who don't live with you. -Avoid crowds and poorly ventilated indoor spaces. -Seek emergent care if any of the following occur Trouble breathing Bluish lips or face Persistent pain or pressure in the chest New confusion or inability to rouse. -Notify your regular care provider of any new or worsening symptoms. Symptomatic Carepoints: Stay home and separate yourself from others and stay in a specific sick room if able. Avoid sharing personal or household items. Rest. Hydrate. Take Acetaminophen/Ibuprofen asneeded to control fever and muscles aches. Use over the counter medications as needed for other symptoms. Education: Patient/caregiver able to teach back Patient agreeable to plan of care: Yes The following references were used: [facility] novel coronavirus (COVID- 19) resources CDC web site https://www.cdc.gov/coronavirus/2019-ncov/your-health/index.html Nursing judgement LEUM PRINTER documented in this encounter Plan of Treatment Not on filedocumented as of this encounter Visit Diagnoses Not on filedocumented in this encounter Care Teams Desktop Publishing Operator Relationship Specialty Start Date End Date Unassigned, Pcp PCP - General Family Medicine 04/22/19 documented as of this encounter
--- OUTSIDE RECORDS SUMMARY | 2022-08-29 12:14 | XMS_ITS | Encounter Summary ---
:1975 Author Organization [facility] Address [address] [place] [address] Care Team Providers Name Role Phone Unassigned, Pcp Primary Care Provider Unavailable Reason for Visit Reason Onset Date Comments Testing For Upper Respiratory Virus Symptoms 08/09/2021 Encounter Details Date Type Department Care Team Description 08/09/2021 External Outreach Department of [facility] Elsa Schmidt Contact With And (Suspected) Exposure To COVID-19 (Primary Dx); Medicine, [place] T, P.A.-C. Infection Upper Respiratory Clinic, in [address] [address] [place], [place] [phone] [address] (Work) [phone] Social History Tobacco Use Types Packs/Day Years Used Date Smoking Tobacco: Never Smokeless Tobacco: Never Alcohol Use Standard Drinks/Week Comments No 0 (1 standard drink = 0.6 oz pure alcoho l) Sex Assigned at Date Recorded Female 02/11/2018 8:36 AM CDT documented as of this encounter Progress Notes Janna Arora R.N. - 08/09/2021 11:32 AM CST Encounter created for symptomatic infectious disease screening with possible COVID, Influenza, RSV, and/or Group A Strep testing. Encounter created for symptomatic infectious disease screening with possible COVID, Influenza, RSV, and/or Group A Strep testing. SEER KOSHER KITCHEN documented in this encounter Plan of Treatment Not on filedocumented as of this encounter Procedures Procedure Name Priority Date/Time Associated Diagnosis Comme nts INFLUENZA A/B AND Routine 08/09/2021 3:53 PM Infection Upper R esults for this RSV, PCR, VARIES OVERSEER KOSHER KITCHEN Respiratory procedure a re in the results section. SARS CORONAVIRUS-2 Routine 08/09/2021 3:53 PM Contact With And Results for this RNA, V OVERSEER KOSHER KITCHEN (Suspected) Exposure procedu re are in To COVID-19 the results section. documented in this encounter Results Influenza A/B and RSV, PCR, Varies (08/09/2021 3:53 PM OVERSEER KOSHER KITCHEN) [facility] [place] Method Time Signature Influenza A/B Swab, 08/14/2021 DTL and RSV, Nasopharynx 11:38 PM Source OVERSEER KOSHER KITCHEN Influenza A, Undetected Undetected 08/14/2021 DTL PCR 11:38 PM OVERSEER KOSHER KITCHEN Comment: Influenza A RNA absent. Influenza B, PCR Undetected Undetected 08/14/2021 11:[address] DTL Comment: Influenza B RNA absent. Respiratory Syncytial Virus, Undetected Undetected 11:38 PM OVERSEER KOSHER KITCHEN DTL PCR Comment: RSV RNA absent. ----ADDITIONAL INFORMATION---- This test has been modified from the man ufacturer's instructions. Its performance characteristics were determi merari by [facility] in a manner consistent with CLIA requirements. This test has not been cleared or approved by the U.S. Food and Drug Administration . Specimen Anatomical Collection Method Collection Time Receive d Time (Source) Location / / Volume Laterality Varies 08/09/2021 3:53 PM 8:53 (Nasopharynx) OVERSEER KOSHER KITCHEN AM OVERSEER KOSHER KITCHEN Anthony Schmidt P.A.-C. LAB MICROBIOLOGY - GENERAL O RDERABLES Performing Organization Address City/State/ZIP Code Phon e Number [facility] - [address] [place], [place] [address] [facility] [place] [address] [address] SARS Coronavirus-2 RNA, V Symptomatic (08/09/2021 3:53 PM OVERSEER KOSHER KITCHEN) [facility] Method Time Signature SARS-CoV-2 Swab, 08/11/2021 ECLR Specimen Nasopharynx 12:57 AM Source OVERSEER KOSHER KITCHEN SARS CoV-2 Undetected Undetected 08/11/2021 ECLR RNA, TMA 12:57 AM OVERSEER KOSHER KITCHEN Comment: SARS-CoV-2 RNA absent. This result does not rule out COVID-19 in the patient, as the sensitivity of the test depends o n the timing of the specimen collection and the quality of the specim en. Result should be correlated with patient's history and clinical presentat ion. ----ADDITIONAL INFORMATION---- This molecular amplification test was pe rformed using the Aptima SARS-CoV-2 assay ([employer] on the [employer] tem under emergency use authorization (EUA) by the U.S. Food and Drug Administ ration. Fact sheets for this EUA assay can be fo und at the following links: For Healthcare Providers: https://www.[employer] a.gov/media/244716/download For Patients: https://www.fda.gov/media/ 928286/download Specimen Anatomical Collection Method Collection Time Receive d Time (Source) Location / / Volume Laterality Varies 08/09/2021 3:53 PM 9:54 (Nasopharynx) OVERSEER KOSHER KITCHEN PM OVERSEER KOSHER KITCHEN Anthony Schmidt P.A.-C. LAB MICROBIOLOGY - GENERAL O RDERABLES Performing Organization Address City/State/ZIP Code Phon e Number [facility]- [address] [place] [phone] [facility] [place] [address] System [address] documented in this encounter Visit Diagnoses Diagnosis Contact With And (Suspected) Exposure To COVID-19 - Primary Infection Upper Respiratory documented in this encounter Additional Health Concerns Infection Onset Date Last Indicated Resolved Time COVID19 Pending 08/09/2021 08/09/2021 08/11/2021 12:57 AM OVERSEER KOSHER KITCHEN documented as of this encounter Care Teams Book Jogger Relationship Specialty Start Date End Date Unassigned, Pcp PCP - General Family Medicine 04/22/19 documented as of this encounter
--- OUTSIDE RECORDS SUMMARY | 2022-08-29 12:14 | XMS_ITS | Encounter Summary ---
:1975 Author Organization [facility] Address [address] [place] [address] Care Team Providers Name Role Phone Unassigned, Pcp Primary Care Provider Unavailable Reason for Visit Reason Comments COVID Inquiry Encounter Details Date Type Department Care Team Description 08/09/2021 Clinical Communication Department of [facility] Cristina Vela, COVID Inquiry Medicine, [facility], in [address] [address] [place], [place] [phone] (Work) [phone] Social History Tobacco Use Types Packs/Day Years Used Date Smoking Tobacco: Never Smokeless Tobacco: Never Alcohol Use Standard Drinks/Week Comments No 0 (1 standard drink = 0.6 oz pure alcoho l) Sex Assigned at Date Recorded Female 02/11/2018 8:36 AM CDT documented as of this encounter Miscellaneous Notes Telephone Encounter - Laury Franks - 08/09/2021 11:07 AM CST What is the purpose of the call?: Requesting Testing Only Request Testing In the past 14 days are any of the following symptoms new to you and not related to an existing health condition?: New cough,New chills,New headache Because of symptoms, transfer patient to: : [facility] Nurse Line (End Screening) Symptom Onset Date of symptom onset: 08/07/21 Plan: Endpoint recommendation: Transferred to Nursing/COVID Line/Care Team *Reminder if sending patient for testing in [facility] or [facility], route encounter to the correct testing pool. APPRENTICE PASTRY documented in this encounter Plan of Treatment Not on filedocumented as of this encounter Visit Diagnoses Not on filedocumented in this encounter Care Teams Food Critic Relationship Specialty Start Date End Date Unassigned, Pcp PCP - General Family Medicine 04/22/19 documented as of this encounter
--- OUTSIDE RECORDS SUMMARY | 2022-08-29 12:15 | XMS_ITS | Encounter Summary ---
:1975 Author Organization [facility] Address [address] [place] [address] Care Team Providers Name Role Phone Unassigned, Pcp Primary Care Provider Unavailable Reason for Visit Reason Onset Date Comments Outpatient COVID-19 Testing 07/17/2020 Encounter Details Date Type Department Care Team Description 07/17/2020 External Outreach Department of [facility] Elsa Schmidt Infection Upper Medicine, [place] Ru[place], P.AVicenta-CVicenta Respiratory (Primary Clinic, in [place], [address]) [place], [place] [address] [address] [place], [place] [phone] (Work) [phone] Social History Tobacco Use Types Packs/Day Years Used Date Smoking Tobacco: Never Smokeless Tobacco: Never Alcohol Use Standard Drinks/Week Comments No 0 (1 standard drink = 0.6 oz pure alcoho l) Sex Assigned at Date Recorded Female 02/11/2018 8:36 AM CDT documented as of this encounter Progress Notes Chyna Louise L.P.N. - 07/17/2020 8:40 AM CST Encounter created for the drive-through COVID-19 testing. YLENE OPERATOR documented in this encounter Plan of Treatment Not on filedocumented as of this encounter Procedures Procedure Name Priority Date/Time Associated Diagnosis Comme nts SARS CORONAVIRUS-2 Routine 07/17/2020 11:24 AM Infection Upper Results for this RNA, V ACETYLENE OPERATOR Respiratory procedure are i n the results section. documented in this encounter Results SARS Coronavirus-2 RNA, V Symptomatic (07/17/2020 11:24 AM ACETYLENE OPERATOR) [facility] Method Time Signature SARS-CoV-2 Swab, 07/17/2020 ECLR Specimen Nasopharynx 9:17 PM ACETYLENE OPERATOR Source SARS CoV-2 Undetected Undetected 07/17/2020 ECLR RNA, TMA 9:17 PM ACETYLENE OPERATOR Comment: SARS-CoV-2 RNA absent. This result does not rule out COVID-19 in the patient, as the sensitivity of the test depends o n the timing of the specimen collection and the quality of the specim en. Result should be correlated with patient's history and clinical presentat ion. ----ADDITIONAL INFORMATION---- This test is performed using the Aptima SARS-CoV-2 assay ([employer] which has received Emergency Use Authori zation (EUA) by the U.S. Food and Drug Administration. Fact sheets for this Emergency Use Autho rization (EUA) assay can be found at the following links: For Healthcare Providers: https://www.fd a.gov/media/025915/download For Patients: https://www.fda.gov/media/ 447796/download Specimen Anatomical Collection Method Collection Time Receive d Time (Source) Location / / Volume Laterality Varies 07/17/2020 11:24 07/17/2020 3:29 (Nasopharynx) AM ACETYLENE OPERATOR PM ACETYLENE OPERATOR Anthony Schmidt P.A.-C. LAB MICROBIOLOGY - GENERAL O KENZIE Performing Organization Address City/State/ZIP Code Phon e Number [facility]- [address] [place] [phone] [facility] [place] [address] System [address] documented in this encounter Visit Diagnoses Diagnosis Infection Upper Respiratory - Primary documented in this encounter Additional Health Concerns Infection Onset Date Last Indicated Resolved Time COVID19 Pending 07/17/2020 07/17/2020 07/17/2020 9:18 PM ACETYLENE OPERATOR documented as of this encounter Care Teams Medical Records Assistant Relationship Specialty Start Date End Date Unassigned, Pcp PCP - General Family Medicine 04/22/19 documented as of this encounter
--- OUTSIDE RECORDS SUMMARY | 2022-08-29 12:15 | XMS_ITS | Encounter Summary ---
:1975 Author Organization [facility] Address [address] [place] [address] Care Team Providers Name Role Phone Rubi Tavares APRN, C.N.P., D.N.P. Primary Care Provider Encounter Details Date Type Department Care Team Description 06/28/2018 Orders Only [facility] Pharm[facility] - [facility] Rubi Henderson APRN, [address] [facility] [address] C.N.P., [place] [address] [address] [phone] [place], [place] [phone] (Wo rk) Social History Tobacco Use Types [...] on filedocumented in this encounter Care Teams Technical Services Manager Relationship Specialty Start Date End Date Rubi Tavares APRN, C.N.P., PCP - General Family Medicine 04/21/19 D.N.P. [address] [place] [address] documented as of this encounter
--- OUTSIDE RECORDS SUMMARY | 2022-08-29 12:15 | XMS_ITS | Encounter Summary ---
:1975 Author Organization [facility] Address [address] [place] [address] Care Team Providers Name Role Phone Rubi Tavares APRN, C.N.P., D.N.P. Primary Care Provider Reason for Visit Reason Comments Genetic Testing Results Encounter Details Date Type Department Care Team Description 03/04/2018 Documentation Department of Mel Francisco, Genetic Testing Medical Genetics in [place]. [place], [place] [address] [place] [address] Social History Tobacco Use Types Packs/Day Years Used Date Smoking Tobacco: Never Smokeless Tobacco: Never Alcohol Use Standard Drinks/Week Comments No 0 (1 standard drink = 0.6 oz pure alcoho l) Sex Assigned at Date Recorded Female 02/11/2018 8:36 AM CDT documented as of this encounter Progress Notes Mel Francisco M.SVicenta, [facility] - 03/04/2018 11:39 AM CDT CHIEF COMPLAINT Patient not seen; negative genetic testing HISTORY OF PRESENT ILLNESS Ms. Alcon Zamora was seen in the Department of Clinical Genomics by Dr. Dillan Boone MD due to a personal history of [id number]. At that time, she elected genetic testing of the COL3A1 gene from [facility]. IMPRESSION/REPORT/PLAN RESULTS To review, Ms. 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 Ms. Zamora's testing was negative, meaning no pathogenic mutations were identified with this testing. This result is very reassuring and does not indicate that Ms. Zamora has vEDS. Ms. Zamora should continue to follow the medical management recommendations of her providers. She is encouraged to contact our office with any questions. PATIENT EDUCATION All of the above was explained in detail with the patient who verbalized understanding. There were no apparent barriers to learning and understanding. The patient's questions were answered. documented in this encounter Plan of Treatment Not on filedocumented as of this encounter Visit Diagnoses Not on filedocumented in this encounter Care Teams Finance Consultant Relationship Specialty Start Date End Date Rubi Tavares APRN, C.N.P., PCP - General Family Medicine 04/21/19 D.N.P. [address] [place] [phone] documented as of this encounter
--- OUTSIDE RECORDS SUMMARY | 2022-08-29 12:15 | XMS_ITS | Encounter Summary ---
:1975 Author Organization [facility] Address [address] [place] [address] Care Team Providers Name Role Phone Unassigned, Pcp Primary Care Provider Unavailable Reason for Visit Reason Onset Date Comments Outpatient COVID-19 Testing 12/25/2019 Encounter Details Date Type Department Care Team Description 12/25/2019 External Outreach Department of [facility] Elsa Schmidt Infection Upper Medicine, [place] Brittney Melchor Respiratory (Primary Clinic, in [place], [address]) [place], [place] [address] [address] [place], [place] [phone] (Work) [phone] Social History Tobacco Use Types Packs/Day Years Used Date Smoking Tobacco: Never Smokeless Tobacco: Never Alcohol Use Standard Drinks/Week Comments No 0 (1 standard drink = 0.6 oz pure alcoho l) Sex Assigned at Date Recorded Female 02/11/2018 8:36 AM CDT documented as of this encounter Progress Notes Anthony Schmidt P.A.-C. - 12/25/2019 4:09 PM CDT Encounter created for the drive-through COVID-19 testing. documented in this encounter Plan of Treatment Not on filedocumented as of this encounter Procedures Procedure Name Priority Date/Time Associated Diagnosis Comme nts SARS CORONAVIRUS-2, Routine 12/25/2019 4:39 PM Infection Upper Results for this PCR CDT Respiratory procedure are i n the results section. documented in this encounter Results SARS Coronavirus-2, PCR (12/25/2019 4:39 PM CDT) Component Value Ref Range Test Analysis Performed Pathologis t Method Time At Signature SARS Swab, Nasopharynx 12/26/2019 DTL Coronavirus-2 12:49 AM Source CDT SARS Negative Negative 12/26/2019 DTL Coronavirus-2, 12:49 AM PCR CDT SARS Coronavirus This test was developed and its performance characteristics determined by 12/26/2019 DTL Interpretation [facility] in a manner cons istent with CLIA requirements. Independent review 12:49 AM by the U.S. Food and Drug Administration is pending. CDT For the most recent CDC guidelines for Coronavirus testing, visit: https://www.cdc.gov/coronavirus/ Fact Sheet for Healthcare Providers: Fact Sheet for Patients: Specimen Anatomical Collection Method Collection Time Receive d Time (Source) Location / / Volume Laterality Varies 12/25/2019 4:39 PM 0 6:58 (Nasopharynx) CDT PM CDT Anthony Schmidt P.A.-C. LAB MICROBIOLOGY - GENERAL O RDERABLES Performing Organization Address City/State/ZIP Code Phon e Number [facility] - [address] [place], [place] [address] [facility] [place] [address] [facility] [address] documented in this encounter Visit Diagnoses Diagnosis Infection Upper Respiratory - Primary documented in this encounter Care Teams Custom Car Builder Relationship Specialty Start Date End Date Unassigned, Pcp PCP - General Family Medicine 04/22/19 documented as of this encounter
--- OUTSIDE RECORDS SUMMARY | 2022-08-29 12:15 | XMS_ITS | Encounter Summary ---
:1975 Author Organization [facility] Address [address] [place] [address] Care Team Providers Name Role Phone Rubi Tavares APRN, C.N.P., D.N.P. Primary Care Provider Encounter Details Date Type Department Care Team Description 02/13/2018 Hospital Encounter Department of Defect A trial Septal (HCC); Laboratory Medicine Chronic Obstructive Pulmonary Disease ([facility]); and Pathology, [place] Lizy Danlos Syndrome [facility] in [place], [place] [address] [place] [address] Social History Tobacco Use Types Packs/Day Years Used Date Smoking Tobacco: Never Smokeless Tobacco: Never Alcohol Use Standard Drinks/Week Comments No 0 (1 standard drink = 0.6 oz pure alcoho l) Sex Assigned at Date Recorded Female 02/11/2018 8:36 AM CDT documented as of this encounter Medications at Time of Discharge Medication Sig Dispensed Refills Start Date End Date albuterol (for_PROVENTIL Inhale 2 puffs 1 Inhaler 3 018 HFA,VENTOLIN HFA) 90 every 4 (four) mcg/actuation inhaler hours as needed for wheezing. ibuprofen Take 200 mg by 0 (for_ADVIL,MOTRIN) 200 mg mouth. capsule amphetamine-dextroampheta Take 10 mg by 0 013 06/07/2018 mine (for_ADDERALL XR) 10 mouth. mg 24 hr capsule citalopram (for_CeleXA) Take 1.5 tablets 135 tablet 3 201710/27/2018 20 mg tablet (30 mg total) by mouth daily. cyclobenzaprine Take 10 mg by 0 05/16/20122021 (for_FLEXERIL) 10 mg mouth. tablet fluticasone (for_FLONASE) Administer 2 sprays 0 0 05/11/2013 06/04/2018 50 mcg/actuation nasal into affected spray nostril(s). fluticasone-vilanterol Inhale 1 puff 60 each 11 10/21/2017 10/27/2018 (BREO ELLIPTA) 200-25 daily. mcg/act inhaler HYDROcodone-acetaminophen Take 1 tablet by 0 05/1810/10/2018 (for_NORCO) 5-325 mg per mouth as needed. tablet traZODone (for_DESYREL) Take 2 tablets by 0 05/1304/30/2018 50 mg tablet mouth at bedtime. documented as of this encounter Plan of Treatment Not on filedocumented as of this encounter Procedures Procedure Name Priority Date/Time Associated Comments Diagnosis GLUCOSE, FASTING, S/P Routine 02/13/2018 6:57 Defect Atrial Re sults for this AM CDT Septal (HCC) procedure are in Lizy Danlos the results Syndrome section. Chronic Obstructive Pulmonary Disease (HCC) THYROPEROXIDASE AB, S Routine 02/13/2018 6:56 Res ults for this AM CDT procedure are i n the results section. T4 (THYROXINE), FREE, S Routine 02/13/2018 6:56 R esults for this AM CDT procedure are i n the results section. LIPID PANEL, S Routine 02/13/2018 6:56 Lizy Dankais Results f or this AM CDT Syndrome procedure are in Chronic Obstructive the resu lts Pulmonary Disease section. (HCC) Defect Atrial Septal (HCC) THYROID FUNCTION Routine 02/13/2018 6:56 Defect Atrial Results for this CASCADE, S AM CDT Septal (HCC) procedure are in Chronic Obstructive the resu lts Pulmonary Disease section. (HCC) Lizy Danlos Syndrome CBC WITH DIFFERENTIAL, B Routine 02/13/2018 6:56 Lizy Danlos Results for this AM CDT Syndrome procedure are in Chronic Obstructive the resu lts Pulmonary Disease section. (HCC) Defect Atrial Septal (HCC) BUN (BLOOD UREA Routine 02/13/2018 6:56 Lizy Danlos Results for this NITROGEN), S/P AM CDT Syndrome procedure are in Chronic Obstructive the resu lts Pulmonary Disease section. (HCC) Defect Atrial Septal (HCC) ASPARTATE Routine 02/13/2018 6:56 Defect Atrial Results for this AMINOTRANSFERASE (AST), AM CDT Septal ( HCC) procedure are in S/P Lizy Danlos the results Syndrome section. Chronic Obstructive Pulmonary Disease (HCC) SODIUM, S/P Routine 02/13/2018 6:56 Defect Atrial Results for this AM CDT Septal (HCC) procedure are in Lizy Danlos the results Syndrome section. Chronic Obstructive Pulmonary Disease (HCC) PROTEIN, TOTAL, S/P Routine 02/13/2018 6:56 Defect Atrial Resu lts for this AM CDT Septal (HCC) procedure are in Lizy Danlos the results Syndrome section. Chronic Obstructive Pulmonary Disease (HCC) POTASSIUM, S/P Routine 02/13/2018 6:56 Chronic Obstructive Res ults for this AM CDT Pulmonary Disease procedure are in (HCC) the results Defect Atrial section. Septal (HCC) Lizy Danlos Syndrome CREATININE WITH EGFR, Routine 02/13/2018 6:56 Chronic Obstruct edilson Results for this S/P AM CDT Pulmonary Disease procedure are in (HCC) the results Defect Atrial section. Septal (HCC) Lizy Danlos Syndrome ALBUMIN, S/P Routine 02/13/2018 6:56 Lizy Danlos Results for this AM CDT Syndrome procedure are in Chronic Obstructive the resu lts Pulmonary Disease section. (HCC) Defect Atrial Septal (HCC) documented in this encounter Results Glucose, Fasting (02/13/2018 6:57 AM CDT) P athologist Signature Glucose, P 87 70 - 100 02/13/2018 [facility] mg/dL 7:53 AM CDT LABORATORIES - [facility] Last Intake 13 hr 02/13/2018 [facility] 7:17 AM CDT LABORATORIES [facility] Specimen Anatomical Collection Method Collection Time Receive d Time (Source) Location / / Volume Laterality Blood 02/13/2018 6:57 AM 8 7:17 CDT AM CDT Dominique Mcgowan M.D. LAB BLOOD NON ADD-ON Performing Organization Address City/State/ZIP Code Phon e Number [facility] LABORATORIES - [address] [place], [place] [address] [facility] T4 (Thyroxine), Free, Serum (02/13/2018 6:56 AM CDT) athologist Signature T4 1.2 0.9 - 1.7 02/13/2018 [facility] (Thyroxine), ng/dL 8:36 AM CDT LABORATORIES - Free, S [facility] Specimen Anatomical Collection Method Collection Time Receive d Time (Source) Location / / Volume Laterality Blood 02/13/2018 6:56 AM 8 7:18 CDT AM CDT Dominique Mcgowan M.D. LAB BLOOD ADD-ON Performing Organization Address City/[facility]/ZIP Code Phon e Number [facility] LABORATORIES - [address] [place], [place] [address] [facility] (ABNORMAL) Thyroperoxidase (TPO) Antibodies, Serum (02/13/2018 6:56 AM CDT) Component Value Ref Test Analysis Performed At [facility] gist Range Method Time Signature Thyroperoxidase Ab, 721.4 (H) <9.0 02/13/2018 [facility] IC S IU/mL 10:13 AM LABORATORIES - CDT [facility] Specimen Anatomical Collection Method Collection Time Receive d Time (Source) Location / / Volume Laterality Blood 02/13/2018 6:56 AM 8 7:18 CDT AM CDT Dominique Mcgowan M.D. LAB BLOOD NON ADD-ON Performing Organization Address City/[facility]/ZIP Code Phon e Number [facility] LABORATORIES - [address] [place], [place] [address] [facility] Sodium (02/13/2018 6:56 AM CDT) athologist Signature Sodium, S 140 135 - 145 02/13/2018 [facility] mmol/L 8:08 AM CDT LABORATORIES - [facility] Specimen Anatomical Collection Method Collection Time Receive d Time (Source) Location / / Volume Laterality Blood 02/13/2018 6:56 AM 8 7:18 CDT AM CDT Dominique Mcgowan M.D. LAB BLOOD ADD-ON Performing Organization Address City/[facility]/ZIP Code Phon e Number [facility] LABORATORIES - [address] [place], [place] [address] [facility] Protein, Total (02/13/2018 6:56 AM CDT) P athologist Signature Protein, 7.0 6.3 - 7.9 02/13/2018 [facility] Total, S g/dL 8:08 AM CDT [facility] Specimen Anatomical Collection Method Collection Time Receive d Time (Source) Location / / Volume Laterality Blood 02/13/2018 6:56 AM 8 7:18 CDT AM CDT Dominique Mcgowan M.D. LAB BLOOD ADD-ON Performing Organization Address City/[facility]/ZIP Code Phon e Number [facility] LABORATORIES - [address] [place], [place] [address] [facility] Potassium (02/13/2018 6:56 AM CDT) P athologist Signature Potassium, S 4.5 3.6 - 5.2 02/13/2018 [facility] mmol/L 8:08 AM CDT [facility] Specimen Anatomical Collection Method Collection Time Receive d Time (Source) Location / / Volume Laterality Blood 02/13/2018 6:56 AM 8 7:18 CDT AM CDT Dominique Mcgowan M.D. LAB BLOOD ADD-ON Performing Organization Address City/[facility] Phon e Number [facility] LABORATORIES - [address] [place] [phone] [facility] (ABNORMAL) Lipid Panel (02/13/2018 6:56 AM CDT) Patholo gist Method Time Signature Cholesterol, 200 (H) mg/dL 02/13/2018 [facility] Total 8:08 AM CDT [facility] Comment: ----REFERENCE VALUE---- Desirable: < 200 Borderline high: 200 - 239 High: > or = 240 Triglycerides 143 mg/dL 02/13/2018 8:08 AM T MAY [facility] S Comment: ----REFERENCE VALUE---- Normal: <150 Borderline high: 150-199 High: 200-499 Very high: > or =500 Cholesterol, HDL, S 49 (L) >=50 mg/dL 02/13/2018 8:08 AM [facility] CDT [facility] S Calculated LDL 122 mg/dL 02/13/2018 8:08 AM [facility] S Comment: ----REFERENCE VALUE---- Desirable: <100 Above Desirable: 100-129 Borderline high: 130-159 High: 160-189 Very high: > or =190 Cholesterol, Non-HDL, 151 mg/dL 02/13/2018 8:0 8 AM CDT [facility] LABORATORIES [facility] Comment: ----REFERENCE VALUE---- Desirable: <130 Above Desirable: 130-159 Borderline high: 160-189 High: 190-219 Very high: > or =220 Specimen Anatomical Collection Method Collection Time Receive d Time (Source) Location / / Volume Laterality Blood 02/13/2018 6:56 AM 8 7:18 CDT AM CDT Dominique Mcgowan M.D. LAB BLOOD ADD-ON Performing Organization Address City/[facility] Code Phon e Number [facility] [employer] - [address] Creatinine with Estimated GFR (MDRD) (02/13/2018 6:56 AM CDT) Analysis Performed At Path logist Time Signature Creatinine 0.82 0.59 - 02/13/2018 [facility] 1.04 mg/dL 8:08 AM CDT [facility] eGFR-Non 89 >=60 02/13/2018 [facility] Black/ mL/min/BSA 8:08 AM CDT LABORATORIES [facility] Comment: ----ADDITIONAL INFORMATION---- Estimated GFR calculated using the 2009 CKD_EPI creatinine equation. eGFR-Black/ >90 >=60 mL/min/BSA 02/13/2018 8:08 [facility] [place] CDT [facility] Comment: ----ADDITIONAL INFORMATION---- Estimated GFR calculated using the 2009 CKD_EPI creatinine equation. Specimen Anatomical Collection Method Collection Time Receive d Time (Source) Location / / Volume Laterality Blood 02/13/2018 6:56 AM 8 7:18 CDT AM CDT Dominique Mcgowan M.D. LAB BLOOD ADD-ON Performing Organization Address City/[facility] Phon e Number [facility] LABORATORIES - [address] [place], [place] [address] [facility] (ABNORMAL) CBC with Differential (02/13/2018 6:56 AM CDT) Patholo gist Method Time Signature Hemoglobin 14.7 11.6 - 02/13/2018 [facility] 15.0 g/dL 7:59 AM CDT LABORATORIES - [facility] Hematocrit 44.1 35.5 - 02/13/2018 [facility] 44.9 % 7:59 AM CDT LABORATORIES - [facility] Erythrocytes 4.77 3.92 - 02/13/2018 [facility] 5.13 7:59 AM CDT LABORATORIES - x10(12)/L [facility] MCV 92.5 78.2 - 02/13/2018 [facility] 97.9 fL 7:59 AM CDT LABORATORIES - [facility] RBC Distrib 12.1 (L) 12.2 - 02/13/2018 [facility] Width 16.1 % 7:59 AM CDT LABORATORIES - [facility] Platelet Count 216 157 - 371 02/13/2018 [facility] x10(9)/L 7:59 AM CDT LABORATORIES - [facility] Leukocytes 7.7 3.4 - 9.6 02/13/2018 [facility] x10(9)/L 7:59 AM CDT LAB[facility]ATORIES - [facility] Neutrophils 5.05 1.56 - 02/13/2018 [facility] 6.45 7:59 AM CDT LABORATORIES - x10(9)/L [facility] Lymphocytes 1.86 0.95 - 02/13/2018 [facility] 3.07 7:59 AM CDT LABORATORIES - x10(9)/L [facility] Monocytes 0.40 0.26 - 02/13/2018 [facility] 0.81 7:59 AM CDT LABORATORIES - x10(9)/L [facility] Eosinophils 0.35 0.03 - 02/13/2018 [facility] 0.48 7:59 AM CDT LABORATORIES - x10(9)/L [facility] Basophils 0.04 0.01 - 02/13/2018 [facility] 0.08 7:59 AM CDT LABORATORIES - x10(9)/L [facility] Specimen Anatomical Collection Method Collection Time Receive d Time (Source) Location / / Volume Laterality Blood 02/13/2018 6:56 AM 8 7:18 CDT AM CDT Dominique Mcgowan M.D. LAB BLOOD ADD-ON Performing Organization Address City/State/ZIP Code Phon e Number [facility] LABORATORIES - [address] [place], [place] [address] [facility] BUN (Blood Urea Nitrogen) (02/13/2018 6:56 AM CDT) P athologist Signature BUN (Blood 17 6 - 21 02/13/2018 [facility] Urea mg/dL 8:08 AM CDT LABORATORIES - Nitrogen), S [facility] Specimen Anatomical Collection Method Collection Time Receive d Time (Source) Location / / Volume Laterality Blood 02/13/2018 6:56 AM 8 7:18 CDT AM CDT Dominique Mcgowan M.D. LAB BLOOD ADD-ON Performing Organization Address City/State/ZIP Code Phon e Number [facility] LABORATORIES - [address] [place] [address] [facility] AST (Aspartate Aminotransferase) (02/13/2018 6:56 AM CDT) [facility] Method Time Signature Aspartate 20 8 - 43 02/13/2018 [facility] Aminotransferase U/L 8:08 AM CDT LABORATORIE S - (AST), S [facility] Specimen Anatomical Collection Method Collection Time Receive d Time (Source) Location / / Volume Laterality Blood 02/13/2018 6:56 AM 8 7:18 CDT AM CDT Dominique Mcgowan M.D. LAB BLOOD ADD-ON Performing Organization Address City/State/ZIP Code Phon e Number [facility] LABORATORIES - [address] [place] [address] [facility] Albumin (02/13/2018 6:56 AM CDT) athologist Signature Albumin, S 4.3 3.5 - 5.0 02/13/2018 [facility] g/dL 8:08 AM CDT LABORATORIES - [facility] Specimen Anatomical Collection Method Collection Time Receive d Time (Source) Location / / Volume Laterality Blood 02/13/2018 6:56 AM 8 7:18 CDT AM CDT Dominique Mcgowan M.D. LAB BLOOD ADD-ON Performing Organization Address City/[facility]/ZIP Code Phon e Number [facility] LABORATORIES - [address] [place], [place] [address] [facility] (ABNORMAL) Thyroid Function Archuleta (02/13/2018 6:56 AM CDT) [facility] Method Time Signature TSH, Sensitive 5.9 (H) 0.3 - 4.2 02/13/2018 [facility] mIU/L 8:13 AM CDT LABORATORIES - [facility] Specimen Anatomical Collection Method Collection Time Receive d Time (Source) Location / / Volume Laterality Blood 02/13/2018 6:56 AM 8 7:18 CDT AM CDT Dominique Mcgowan M.D. LAB BLOOD ADD-ON Performing Organization Address City/State/ZIP Code Phon e Number [facility] LABORATORIES - [address] [place], [place] [address] [facility] documented in this encounter Visit Diagnoses Diagnosis Atrial Septal Defect Unspecified (HCC) Chronic Obstructive Pulmonary Disease (H CC) Lizy Danlos Syndrome documented in this encounter Care Teams Wheel Buffer Relationship Specialty Start Date End Date Rubi Tavares APRN, C.N.P., PCP - General Family Medicine 04/21/19 D.N.P. [address] [place] [address] documented as of this encounter
--- OUTSIDE RECORDS SUMMARY | 2022-08-29 12:15 | XMS_ITS | Encounter Summary ---
:1975 Author Organization [facility] Address [address] [place] [address] Care Team Providers Name Role Phone Rubi Tavares APRN, C.N.P., D.N.P. Primary Care Provider Encounter Details Date Type Department Care Team Description 02/13/2018 Orders Only Department of Family Rubi Tavares, Wy reening Mammogram Medicine, [place], C.N.PVicenta, [facility] age Risk Patient [facility], in [place] EdwardN.PVicenta (Primary Dx) [place], [place] [address] [place] [phone] Social History Tobacco Use Types Packs/Day Years Used Date Smoking Tobacco: Never Smokeless Tobacco: Never Alcohol Use Standard Drinks/Week Comments No 0 (1 standard drink = 0.6 oz pure alcoho l) Sex Assigned at Date Recorded Female 02/11/2018 8:36 AM CDT documented as of this encounter Plan of Treatment Not on filedocumented as of this encounter Visit Diagnoses Diagnosis Screening Mammogram Average Risk Patient - Primary documented in this encounter Care Teams Runway Model Relationship Specialty Start Date End Date Rubi Tavares APRN, C.N.P., PCP - General Family Medicine 04/21/19 D.N.P. [address] [place] [phone] documented as of this encounter
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
--- OUTSIDE RECORDS SUMMARY | 2022-08-29 12:15 | XMS_ITS | Encounter Summary ---
:1975 Author Organization [facility] Address [address] [place] [address] Care Team Providers Name Role Phone Rubi Tavares APRN, C.N.P., D.N.P. Primary Care Provider Reason for Visit Reason Comments Med Refill Encounter Details Date Type Department Care Team Description 04/30/2018 Refill Department of Family Medicine, Rubi Tavares APRN, Med Refill [facility], in [place] C .N.P., D.N.P. [place], [place] [address] [place] [phone] [place], [place] [address] [phone] Social History Tobacco Use Types Packs/Day Years [...] on filedocumented in this encounter Care Teams Oil Well Drilling Manager Relationship Specialty Start Date End Date Rubi Tavares APRN, C.N.P., PCP - General Family Medicine 04/21/19 D.N.P. [address] [place] [phone] documented as of this encounter
--- OUTSIDE RECORDS SUMMARY | 2022-08-29 12:15 | XMS_ITS | Encounter Summary ---
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
--- OUTSIDE RECORDS SUMMARY | 2022-08-29 12:15 | XMS_ITS | Encounter Summary ---
:1975 Author Organization [facility] Address [address] [place] [address] Care Team Providers Name Role Phone Rubi Tavares APRN, C.N.P., D.N.P. Primary Care Provider Encounter Details Date Type Department Care Team Description 04/09/2019 Orders Only [facility] - [facility] Rubi Henderson APRN, [address] [facility] C.N.P., D.N.P. [facility] [place] [address] [address] [employer] [phone] [place], [place] [phone] (Wo rk) Social History [...] on filedocumented in this encounter Care Teams Deputy Editor In Chief Relationship Specialty Start Date End Date Rubi Tavares APRN, C.N.P., PCP - General Family Medicine 04/21/19 D.N.P. [address] [place] [phone] documented as of this encounter
--- OUTSIDE RECORDS SUMMARY | 2022-08-29 12:15 | XMS_ITS | Encounter Summary ---
:[address] [facility] Address [address] [place] [address] Care Team Providers Name Role Phone Rubi Tavares APRN C.N.PVicenta, D.N.P. Primary Care Provider Reason for Referral Medication Prior Authorization (Routine) - Authorized Specialty Diagnoses / Procedures Referred By Contact Refer red To Contact Rubi Tavares APRN, C.N.P., D.N.P. [address] [place] [phone] Referral ID Status Reason Start Date Expiration Date Visits V isits Requested Authorized [id number] Authorized 04/07/2019 04/07/2020 NG BLOCKER Reason for Visit Reason Comments Med Refill Encounter Details Date Type Department Care Team Description 10/27/2018 Refill Department of Family Medicine, Adia Garland, Med Refill [facility], in [facility] .A.-C, [address] [address] [place], [place] [address] [phone] Social History Tobacco Use Types Packs/Day Years [...] on filedocumented in this encounter Care Teams Fence Supervisor Relationship Specialty Start Date End Date Rubi Tavares APRN, C.N.P., PCP - General Family Medicine 04/21/19 D.N.P. [address] [place] [address] documented as of this encounter
--- OUTSIDE RECORDS SUMMARY | 2022-08-29 12:15 | XMS_ITS | Encounter Summary ---
:1975 Author Organization [facility] Address [address] [place] [address] Care Team Providers Name Role Phone Rubi Tavares APRN, C.N.P., D.N.P. Primary Care Provider Reason for Visit Reason Comments Neck Pain since wed pain 06/25 Arm Pain Encounter Details Date Type Department Care Team Description 10/10/2018 Emergency [facility] Peter Gonzalez Neck Initial Department Dulce KAUFMAN M.D. (Primary Dx) [id number] [place] [phone] (Wo rk) Social History Tobacco Use Types Packs/Day Years Used Date Smoking Tobacco: Never Smokeless Tobacco: Never Alcohol Use Standard Drinks/Week Comments No 0 (1 standard drink = 0.6 oz pure alcoho l) Sex Assigned at Date Recorded Female 02/11/2018 8:36 AM CDT documented as of this encounter Last Filed Vital Signs Vital Sign Reading Time Taken Comments Blood Pressure 140/95 10/10/2018 5:43 PM [facility] COUNTER MOLDER Pulse 115 10/10/2018 5:43 PM [facility] COUNTER MOLDER Temperature 37.1 ??C (98.8 ??F) 10/10/2018 5:43 PM [facility] COUNTER MOLDER Respiratory Rate 20 10/10/2018 5:43 PM [facility] COUNTER MOLDER Oxygen Saturation 97% 10/10/2018 5:43 PM [facility] COUNTER MOLDER Inhaled Oxygen Concentration - - Weight 94.7 kg (208 lb 12.4 oz) 10/10/2018 5:44 PM CIAIO COUNTER MOLDER Height - - Body Mass Index 31.46 02/13/2018 12:34 PM CDT documented in this encounter Discharge Instructions AttachmentsThe following attachments cannot be sent through Care Everywhere.RICE for Routine Care of Injuries [id number] (Scottish)documented in this encounter Medications at Time of Discharge Medication Sig Dispensed Refills Start Date End Date albuterol (for_PROVENTIL Inhale 2 puffs 1 Inhaler 3 018 HFA,VENTOLIN HFA) 90 every 4 (four) mcg/actuation inhaler hours as needed for wheezing. fluticasone (FLONASE) 50 Administer 2 54 g 3 8 mcg/actuation nasal spray sprays into each nostril 2 (two) times a day. HYDROcodone-acetaminophen Take 2 tablets by 6 tablet 0 (NORCO) 5-325 mg per mouth every 6 tabletIndications: Acute (six) hours as Pain needed for pain Indication: Acute Pain. ibuprofen Take 200 mg by 0 (for_ADVIL,MOTRIN) 200 mg mouth. capsule methylphenidate HCl Take 18 mg by 0 (CONCERTA) 18 mg CR tablet mouth daily. traZODone (DESYREL) 50 mg Take 2 tablets 60 tablet 0 2017 tablet (100 mg total) by mouth at bedtime. citalopram (for_CeleXA) 20 Take 1.5 tablets 135 tablet 3 12/201710/27/2018 mg tablet (30 mg total) by mouth daily. cyclobenzaprine Take 10 mg by 0 05/16/20122021 (for_FLEXERIL) 10 mg mouth. tablet fluticasone-vilanterol Inhale 1 puff 60 each 11 10/21/2017 10/27/2018 (BREO ELLIPTA) 200-25 daily. mcg/act inhaler methylPREDNISolone (MEDROL Follow package 21 tablet 0 10/1006/23/2019 DOSEPACK) 4 mg tablet directions. traZODone (DESYREL) 50 mg Take 2 tablets 60 tablet 11 201706/09/2021 tablet (100 mg total) by mouth at bedtime. documented as of this encounter ED Notes Len Gonzalez III, M.D. - 10/10/2018 5:49 PM CST SUBJECTIVE CHIEF COMPLAINT/REASON FOR VISIT Neck Pain (since sat pain 06/25) and Arm Pain HISTORY OF PRESENT ILLNESS History provided by: Patient and significant other Neck Pain Pain location: L side Quality: Stabbing and aching Onset quality: Sudden Duration: 4 days Timing: Constant Progression: Unchanged Chronicity: Recurrent Context comment: Jerking motion of left arm by her dog Relieved by: Nothing Worsened by: Bending, coughing, position and twisting Ineffective treatments: Analgesics, heat and ice Associated symptoms: no chest pain and no fever Associated symptoms comment: None REVIEW OF SYSTEMS Constitutional: Negative for chills, fatigue and fever. HENT: Negative for congestion, ear pain, sore throat and trouble swallowing. Eyes: Negative. Respiratory: Negative for cough, shortness of breath and wheezing. Cardiovascular: Negative for chest pain, palpitations and leg swelling. Gastrointestinal: Negative for abdominal pain, constipation, diarrhea, nausea and vomiting. Endocrine: Negative for cold intolerance and heat intolerance. Genitourinary: Negative for dysuria, frequency, urgency, vaginal bleeding, vaginal discharge and vaginal pain. Musculoskeletal: Positive for neck pain. Skin: Negative for color change and rash. Allergic/Immunologic: Negative. Neurological: Negative. Hematological: Negative for adenopathy. Does not bruise/bleed easily. Psychiatric/Behavioral: Negative for depression. OBJECTIVE Initial Vitals [10/10/18 1743] Temperature Pulse Rate Heart Rate Resp Rate Blood Pressure SpO2 37.1 ??C (!) 115 -- 20 (!) 140/95 97 % Pain Score 10 - Worst possible pain PHYSICAL EXAMINATION Constitutional: She appears well-developed and well-nourished. HENT: Head: Normocephalic and atraumatic. Mouth/Throat: Mucous membranes are moist. Eyes: Conjunctivae and EOM are normal. Pupils are equal, round, and reactive to light. Neck: Normal range of motion. Neck supple. No JVD present. No neck adenopathy. Cardiovascular: Normal rate, regular rhythm, S1 normal, S2 normal and normal heart sounds. Pulses are strong and palpable. Capillary refill: takes less than 3 seconds, Pulmonary/Chest: Effort normal and breath sounds normal. There is normal air entry. Negative squeeze test Abdominal: Soft. Bowel sounds are normal. She exhibits no distension. There is no tenderness. Musculoskeletal: Normal range of motion. Neurological: She is alert and oriented to person, place, and time. She has normal reflexes. No cranial nerve deficit. Skin: Skin is warm, dry, intact and normal color. Psychiatric: She has a normal mood and affect. Nursing note and vitals reviewed. Differential diagnosis: Strain, sprain, fracture, or dislocation. ASSESSMENT/PLAN Impression and Plan Acute neck pain secondary to jerking motion left neck. After examination it was not necessary to do imaging. Probable musculoskeletal strain. Patient was provided with anti-inflammatories in the form of a Medrol Dosepak. A short course of opioids (hydrocodone 5 mg dispense 6) was provided. Plan followup with primary medical provider in two weeks if symptoms have not improved. Reasons to return to the emergency department discussed. Reviewed and summarized previous medical records including: Documentation from previous visits, Radiology images/report and Lab results. Final Diagnoses: as of Oct 10 1803 Strain Neck Initial Len Gonzalez III, M.D. 10/10/18 [id number] O COUNTER MOLDER Joya Schuster R.N. - 10/10/2018 5:46 PM CST Pt comes in after her 70# dog pulled his chain with her holding on this happened sat. She was takingflexeril and ibuprofen that helped with pain. Today she comes in stating her flexeril and norco aren't helping her pain. She has pain 10/10 to left side of neck going down her left arm into her rib cage. Joya Schuster R.N. 10/10/18 [id number] O COUNTER MOLDER documented in this encounter Plan of Treatment Not on filedocumented as of this encounter Visit Diagnoses Diagnosis Strain Neck Initial - Primary documented in this encounter Care Teams Overlay Operator Relationship Specialty Start Date End Date Rubi Tavares APRN, C.N.P., PCP - General Family Medicine 04/21/19 D.N.P. [address] [place] [phone] documented as of this encounter
--- OUTSIDE RECORDS SUMMARY | 2022-08-29 12:15 | XMS_ITS | Encounter Summary ---
:1975 Author Organization [facility] Address [address] [place] [address] Care Team Providers Name Role Phone Unassigned, Pcp Primary Care Provider Unavailable Reason for Visit Reason Comments Med Refill Encounter Details Date Type Department Care Team Description 06/09/2019 Refill Department of Family Medicine, Rubi Tavares APRN, Med Refill [facility] [place] in [place] C .N.P., D.N.[address] [phone] [place], [place] [address] [phone] Social History Tobacco Use Types Packs/Day Years Used Date Smoking Tobacco: Never Smokeless Tobacco: Never Alcohol Use Standard Drinks/Week Comments No 0 (1 standard drink = 0.6 oz pure alcoho l) Sex Assigned at Date Recorded Female 02/11/2018 8:36 AM CDT documented as of this encounter Miscellaneous Notes Telephone Encounter - Clara Cox - 06/09/2019 9:17 AM CDT Noted and sent to pharmacy Telephone Encounter - Gissel Ramos, C.M.A. - 06/09/2019 8:33 AM CDT Has not been seen since 12/01 Dr Reyes documented in this encounter Plan of Treatment Not on filedocumented as of this encounter Visit Diagnoses Not on filedocumented in this encounter Care Teams Metal Weigher Relationship Specialty Start Date End Date Unassigned, Pcp PCP - General Family Medicine 04/22/19 documented as of this encounter
--- OUTSIDE RECORDS SUMMARY | 2022-08-29 12:15 | XMS_ITS | Encounter Summary ---
:1975 Author Organization [facility] Address [address] [place] [id number] Care Team Providers Name Role Phone Rubi Tavares APRN, C.N.P., D.N.P. Primary Care Provider Reason for Visit Outpatient (Routine) - Closed Specialty Diagnoses / Procedures Referred By Contact Refer red To Contact Diagnoses Atrial Septal Defect Unspecified (HCC) Dillan Boone M.D. [facility] [address] [place] [phone] Referral ID Status Reason Start Date Expiration Date Visits Requ ested Visits Authorized [id number] Closed 01/04/2018 07/03/2018 1 1 Encounter Details Date Type Department Care Team Description 02/13/2018 Comprehensive Visit Department of Dillan Boone M.D. [address] [place] [phone] Defect Atrial Medical Genetics Mel Francisco M.S. Septal (HCC) in [place], [place] [address] [place] [phone] Social History Tobacco Use Types Packs/Day Years Used Date Smoking Tobacco: Never Smokeless Tobacco: Never Alcohol Use Standard Drinks/Week Comments No 0 (1 standard drink = 0.6 oz pure alcoho l) Sex Assigned at Date Recorded Female 02/11/2018 8:36 AM CDT documented as of this encounter Progress Notes Dillan Boone M.D. 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 At that time, we discussed genetic testing for vascular type Lizy- Danlos syndrome, but this was denied by insurance. Ms. Zamora would like to try and do genetic testing at this time and see if this would be covered by in surance. ASSESSMENT / PLAN #1 Defect Atrial Septal (HCC) #2.Lizy Danlos syndrome I will order COL3A1 testing today for Ms. Zamora and returned results when they are obtained. documented in this encounter Plan of Treatment Not on filedocumented as of this encounter Visit Diagnoses Diagnosis Atrial Septal Defect Unspecified (HCC) documented in this encounter Care Teams Ultrasound Technologist Relationship Specialty Start Date End Date Rubi Tavares APRN, C.N.P., PCP - General Family Medicine 04/21/19 D.N.P. [address] [place] [phone] documented as of this encounter
--- OUTSIDE RECORDS SUMMARY | 2022-08-29 12:15 | XMS_ITS | Encounter Summary ---
:1975 Author Organization [facility] Address [address] [place] [address] Care Team Providers Name Role Phone Rubi Tavares APRN, C.N.P., D.N.P. Primary Care Provider Encounter Details Date Type Department Care Team Description 02/13/2018 Comprehensive Visit Department of Juan M, Amaury Atrial Septal (HCC) (Primary Dx); Cardiovascular Dominique Tyson Lizy Danlos Syndrome; Medicine in M.D. Asthma Mild Intermittent With Environmen stephanie Exposure To Tobacco Smoke (HCC) [place], [place] [address] [facility] [address] [place] [address] [phone] Social History Tobacco Use Types Packs/Day Years Used Date Smoking Tobacco: Never Smokeless Tobacco: Never Alcohol Use Standard Drinks/Week Comments No 0 (1 standard drink = 0.6 oz pure alcoho l) Sex Assigned at Date Recorded Female 02/11/2018 8:36 AM CDT documented as of this encounter Last Filed Vital Signs Vital Sign Reading Time Taken Comments Blood Pressure 103/72 02/13/2018 12:37 PM CDT Pulse 75 02/13/2018 12:34 PM CDT Temperature - - Respiratory Rate - - Oxygen Saturation - - Inhaled Oxygen Concentration - - Weight 89.5 kg (197 lb 5 oz) 02/13/2018 12:34 PM CDT Height 173.5 cm (5' 8.31) 02/13/2018 12:34 PM CDT Body Mass Index 29.73 02/13/2018 12:34 PM CDT documented in this encounter Consult Notes Dominique Mcgowan M.D. - 02/13/2018 1:00 PM CDT REFERRAL SOURCE Self-referred ?? CHIEF COMPLAINT / REASON FOR VISIT Secundum atrial septal defect, status post device closure. Assisted by: Dr. Ben Forrester ?? HISTORY OF PRESENT ILLNESS I have interviewed and examined Mrs. Zamora and discussed management plans with Dr. Forrester. I have reviewed her note agree with findings as outlined. Ms. Zamora is a 42-year-old woman with a history significant for secundum atrial septal defect statuspost device closure with an Amplatzer occluder device in June of 2006. She was the product of a twin gestation born at 32 weeks. 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 She was previously followed by Dr. Herr. I met her in August of 2012. At that time she was stable from the perspective of her congenital heart disease with normal right ventricular size and function and no complications with her ASD occluder device. She had concerns about a possible connective tissue disorder such as Marfan syndrome, but her aorta was normal. She was subsequently evaluated by Dr. 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 She had a number of noncardiac symptoms at that time which I felt could be due to fibromyalgia. In the interim, she feels her symptoms of dyspnea have gotten worse. She is still able to work 7-8 hours per day but does not do any exercise or do any housework. If she does too much activity she feels extremely fatigued. She denies any significant issues with cough. She has some atypical chest pain but no symptoms suggestive of angina. She has had no episodes of syncope and no palpitations. She hasno lower extremity edema. She has no orthopnea or PND. She continues to have significant issues with chronic pain. She feels she has clicking in her hips and ankles. She also notes easy bruising. She is less flexible and she once was. She asked to have a carotid ultrasound performed as part of her evaluation due to symptoms of headache and left-sided neckpain, and a family history of stroke. She has questions about the need for long-term cardiac follow-up and also wonders why she needs to see Medical Genetics again. The following portions of the patient's history were reviewed and updated as appropriate: allergies,current medications, family history, medical history, social history, surgical history, psychiatric history, substance abuse history, problem list, labs, diagnostics tests. I also reviewed pertinent clinical notes in the electronic health record. PAST MEDICAL HISTORY 1. Secundum atrial septal defect, status post device closure with an Amplatzer device in June of 2006. 2. 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 4. Depression and anxiety. 5. PTSD. 6. Cervical spine problems. 7. Insomnia. 8. Attention deficit disorder. 9. Some type of eye issue with possible early glaucoma. 10. Hysterectomy done for chronic abdominal pain. 11. Asthma. 12. Left meniscus surgery, 2012. 13. Tubal ligation. 14. Rosacea. 15. Fibromyalgia SOCIAL HISTORY She is . 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 She is a nonsmoker. FAMILY HISTORY No history of congenital heart disease or premature coronary artery disease. No history of aortic dissections. REVIEW OF SYSTEMS A comprehensive review of systems was completed; pertinent abnormalities are included in the Historyof Present Illness. MEDICATIONS Current Medications: ??? albuterol (for_PROVENTIL HFA,VENTOLIN HFA) 90 mcg/actuation inhaler, Inhale 2 puffs every 4 (four) hours as needed for wheezing. ??? citalopram (for_CeleXA) 20 mg tablet, Take 1.5 tablets (30 mg total) by mouth daily. ??? cyclobenzaprine (for_FLEXERIL) 10 mg tablet, Take 10 mg by mouth. ??? fluticasone (for_FLONASE) 50 mcg/actuation nasal spray, Administer 2 sprays into affected nostril(s). ??? fluticasone-vilanterol (BREO ELLIPTA) 200-25 mcg/act inhaler, Inhale 1 puff daily. ??? HYDROcodone-acetaminophen (for_NORCO) 5-325 mg per tablet, Take 1 tablet by mouth. ??? ibuprofen (for_ADVIL,MOTRIN) 200 mg capsule, Take 200 mg by mouth. ??? methylphenidate HCl (CONCERTA) 18 mg CR tablet, Take 18 mg by mouth daily. ??? traZODone (for_DESYREL) 50 mg tablet, Take 2 tablets by mouth at bedtime. ??? amphetamine-dextroamphetamine (for_ADDERALL XR) 10 mg 24 hr capsule, Take 10 mg by mouth. VITALS BP 103/72 (BP Location: Left arm, Patient Position: Sitting) Pulse 75 Ht 173.5 cm Wt 89.5 kg BMI 29.73 kg/m?? PHYSICAL EXAMINATION General: Mildly overweight. Well groomed. Psychiatric: Normal mood and affect. Oriented to person, place, and time. Eyes: No xanthelasma or conjunctivitis. ENT: No oral mucosal pallor or cyanosis. Vessels: Jugular venous pressure is normal. Normal carotid upstrokes. No carotid bruits. Peripheral pulses are normal. Heart: Pectus excavatum is present. Normal palpation. Regular rhythm with no murmurs. Lungs: Clear bilaterally. Abdomen: No hepatosplenomegaly. No abdominal tenderness, no masses. Extremities: No clubbing or cyanosis. No lower extremity edema. Skin: No stasis dermatitis or ulceration of the lower extremities. DIAGNOSTIC REVIEW All labs and diagnostic studies were reviewed. Labs: Hemoglobin 14.7, platelets 216, sodium 140, potassium 4.5, creatinine 0.82, glucose 87, AST 20, albumin 4.3, total cholesterol 200, triglycerides 143, HDL 49, LDL 122, TSH is 5.9, free T4 1.2. ECG shows normal sinus rhythm at 67 beats per minute with left atrial enlargement and T-wave inversion in the inferolateral leads. Chest x-ray shows pectus excavatum, normal heart size, atrial septal occluded device, and biapical pleural and parenchymal scarring. Carotid ultrasound is completely normal. Transthoracic echo shows normal position of the atrial septal occluder device with no residual shunt. Right ventricular size and function are normal. Left ventricular size and function are normal. There is no significant valvular disease. There is no pericardial effusion. The aortic dimensions are normal. ?? 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 She has had a good result from device closure of her atrial septal defect. Echo today demonstrates normal appearance of the Amplatzer septal occluder device with no residual shunt. Right ventricular size and function are normal. She has no cardiac symptoms. Her symptoms of dyspnea are likely related to her underlying lung disease with some contribution from deconditioning. I offered a stress test to further evaluate her symptoms of dyspnea but she would prefer not to do this. I think it is unlikely that her symptoms are cardiac. I do think shewould benefit from a more regular exercise program. She wonders if ongoing cardiac evaluations are necessary. I reviewed with her that with an Amplatzer closure device, ongoing surveillance is recommended, and I think it is reasonable to repeat evaluations approximately every 5 years. I suspect she will continue to do well from a cardiovascular perspective. She had asked to proceed with genetic testing and thus I arranged for a consultation with Dr. Boone.She did see him in the past and he felt that she had Lizy-Danlos, hypermobility type, but due to limited family history felt it would be reasonable to evaluate for mutations in the COL3A1 gene. This was not performed due to insurance limitations at that time but she would like to proceed now. I reviewed with her the rationale for having consultation with a Genetics counselor prior to proceeding with genetic testing and discussed with her that I am unable to order this testing. Carotid ultrasound was performed at the request of the patient due to symptoms of headache and neck pain and a family history of stroke. The carotid ultrasound was completely normal. Dominique Mcgowan M.D. 02/13/2018 Johanna Forrester M.D., M.B.B.S. - 02/13/2018 1:00 PM CDT SUBJECTIVE Referring Provider: No ref. provider found HISTORY OF PRESENT ILLNESS Ms. Alcon Zamora is a 42 y.o. female who has history of ASD closure in 2005 is here for follow-up. Patient was last seen in congenital clinic in 2012. At that time because of the concerns for connective tissue disorder she was referred to see genetics specialist and clinical diagnosis of Ehler Danlos hyper mobility type was made and she was recommended to have a genetic testing, but at that time she was unable to do due to insurance issues. Now she Has decided to have her genetic testing done and she came here for her ASD closure follow-up. She states she was a twin baby, She was born at 32 weeks prematurely in a small hospital. Her twin sister within 12 hrs of . But she was transferred to hospital in [place] per her mom request and she had lot of respiratory issues and pneumothorax in the period.She remembers in her childhood she had frequent lung issues, and she was very flexible, clumsy and she was not able to participate in sports activities due to breathing issues. She had one miscarriage at 10 weeks, and she had 3 children via normal delivery at age 21, 23 and 25years. She had severe preeclampsia in her pregnancies. she said, She was found to have a murmur when she was having preop evaluation for hysterectomy, andruperto was evaluated here at [facility] and she had Amplatz device occluder in 2005 She thinks her migraine got better after ASD closure , otherwise she felt the same. She has chronic lung issues and worsening short of breadth due to chronic bronchopulmonary dysplasiawith moderate airway obstruction. Also over the years, she has developed multiple symptoms, including Joint pain, Muscle pain, chest pain from costochondritis, random abdominal pain. 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 She can walk about 2 blocks or 1 flights of stairs and she will get short of breadth. She does have easy bruising, and her children also has some joint issues. Her left hip, right hip and left ankle does feel weird like popping and that would cause muscle pain around the joint. Wears glasses for myopia and no history of lens dislocation. Past medical history ASD status post closure in 2005 Depression Attention Deficit disorder Anxiety Past surgical history 1. Knee meniscectomy 2012 2. ASD closure 2005 3. Hysterectomy 2005 4. Tubal ligation 5. Lipoma excision Allergies Allergen Reactions ??? Bupropion GI intolerance ??? Erythromycin GI intolerance ??? Erythromycin Base GI intolerance ??? Mold Other (see comments) ??? Pollen Extracts Other (see comments) MEDICATIONS Current Medications: ??? albuterol (for_PROVENTIL HFA,VENTOLIN HFA) 90 mcg/actuation inhaler, Inhale 2 puffs every 4 (four) hours as needed for wheezing. ??? citalopram (for_CeleXA) 20 mg tablet, Take 1.5 tablets (30 mg total) by mouth daily. ??? cyclobenzaprine (for_FLEXERIL) 10 mg tablet, Take 10 mg by mouth. ??? fluticasone (for_FLONASE) 50 mcg/actuation nasal spray, Administer 2 sprays into affected nostril(s). ??? fluticasone-vilanterol (BREO ELLIPTA) 200-25 mcg/act inhaler, Inhale 1 puff daily. ??? HYDROcodone-acetaminophen (for_NORCO) 5-325 mg per tablet, Take 1 tablet by mouth. ??? ibuprofen (for_ADVIL,MOTRIN) 200 mg capsule, Take 200 mg by mouth. ??? methylphenidate HCl (CONCERTA) 18 mg CR tablet, Take 18 mg by mouth daily. ??? traZODone (for_DESYREL) 50 mg tablet, Take 2 tablets by mouth at bedtime. ??? amphetamine-dextroamphetamine (for_ADDERALL XR) 10 mg 24 hr capsule, Take 10 mg by mouth. SUBSTANCE USE: Social History Substance Use Topics ??? Smoking status: Never Smoker ??? Smokeless tobacco: Never Used ??? Alcohol use No REVIEW OF SYSTEMS Constitutional: Positive for fatigue. Respiratory: Positive for dyspnea. Musculoskeletal: Positive for arthralgias, pain or stiffness in the joints and muscle pain/stiffness. The following systems were negative: Skin, Eyes, ENT, CV, GI, , Hematologic, Neuro, Psych OBJECTIVE BP 103/72 (BP Location: Left arm, Patient Position: Sitting) Pulse 75 Ht 173.5 cm Wt 89.5 kg BMI 29.73 kg/m?? PHYSICAL EXAMINATION General: Normal body habitus. Well groomed. Obese Psychiatric: Normal mood and affect. Oriented to person, place, and time. Eyes: Wears glasses, No periorbital xanthelasma. Clear sclerae. ENT: High-arched palate noted , wide neck ,No oral mucosal cyanosis or pallor. Heart: Pectus excavatum noted , First and second heart sounds normal. No murmur, gallop, or rub. Jugular venous pressure normal. Precordium quiet. Vessels: No carotid bruits. Normal pedal pulses. Lungs: Clear to auscultation. Good air movement bilaterally. Abdomen: No hepatic enlargement. No masses or tenderness. Musculoskeletal: Positive thumb sign No clubbing or cyanosis of the digits. Extremities: No lower extremity edema. Skin: Bruising and mild purplish discoloration noted DIAGNOSTICS I have reviewed the patient's current laboratory, imaging, and other diagnostic studies. Pertinent laboratory studies are notable for: WBC 7.7, Hemoglobin 14.7, Platelets 216 Creatinine 0.82 Pertinent imaging studies are notable for: ECG: Normal sinus rhythm Chest x-ray: Echocardiogram: 1. Status post 34 mm Amplatzer atrial septal defect closure device (2005). 2. Normal device position: no interference with surrounding cardiac structures. No shunt at atrial level by color flow imaging. 3. Normal right ventricular size and function. 4. Normal left ventricular chamber size; calculated ejection fraction 58%. 5. No regional wall motion abnormalities. 6. Normal left ventricular diastolic function. 7. Normal cardiac valves. 8. Normal ascending aorta dimension. 9. No pericardial effusion. Carotid ultrasound bilateral normal ASSESSMENT / PLAN 42 year old female with #1 Defect Atrial Septal (HCC), s/p Amplatzer closure in 2005 - Echo shows normal cardiac structure and function and no shunt at atrial level. - She is scheduled to have exercise testing, but patient prefers not to have , since it will be verydifficult for her to do and she will have significant muscle ache and joint symptom after the test. - Her symptoms of fatigue short of breath, most likely due to her pulmonary limitation and chronic deconditioning. - She can follow up with us in 5 years or earlier if she has any concerns #2 Lizy Danlos Syndrome (HCC) hypermobility type - Her aorta size is normal , and all her previous imaging including brain chest abdomen pelvis, has not Shown any aneurysm, and to confirm and to Rule out any Possibility of vascular type EDS she is scheduled to have follow-up with genetics and genetic test Patient was seen along with Dr. Mcgowan and please see her notes for details Ben Forrester M.D., M.B.B.S. 02/13/2018 documented in this encounter Plan of Treatment Not on filedocumented as of this encounter Visit Diagnoses Diagnosis Atrial Septal Defect Unspecified (HCC) - Primary Lizy Danlos Syndrome Asthma Mild Intermittent With Environmen stephanie Exposure To Tobacco Smoke (HCC) documented in this encounter Care Teams Environmental Emergencies Planner Relationship Specialty Start Date End Date Rubi Tavares APRN, C.N.P., PCP - General Family Medicine 04/21/19 D.N.P. [address] [place] [address] documented as of this encounter
--- OUTSIDE RECORDS SUMMARY | 2022-08-29 12:15 | XMS_ITS | Encounter Summary ---
:1975 Author Organization [facility] Address [address] [place] [address] Care Team Providers Name Role Phone Unassigned, Pcp Primary Care Provider Unavailable Encounter Details Date Type Department Care Team Description 10/25/2020 Patient Self-Triage [facility] Symptom Marketing Traffic Manager, Provider Social History Tobacco Use Types Packs/Day [...] COVID19 Pending 10/25/2020 10/26/2020 10/27/2020 9:59 AM FRIT COATER documented as of this encounter Care Teams Social Science Analyst Relationship Specialty Start Date End Date Unassigned, Pcp PCP - General Family Medicine 04/22/19 documented as of this encounter
--- OUTSIDE RECORDS SUMMARY | 2022-08-29 12:15 | XMS_ITS | Encounter Summary ---
:1975 Author Organization [facility] Address [address] [place] [address] Care Team Providers Name Role Phone Rubi Tavares APRN, C.N.P., D.N.P. Primary Care Provider Encounter Details Date Type Department Care Team Description 02/13/2018 Hospital Encounter Department of Dillan Boone Defec t Atrial Septal Laboratory Medicine M.DVicenta (HCC) and Pathology, [address] [place] [address] in [place], [place] [address] [place] [address] [place], [place] (Work) [phone] Social History Tobacco Use Types Packs/Day Years [...] capsule methylphenidate HCl Take 18 mg by mouth 0 (CONCERTA) 18 mg CR daily. tablet amphetamine-dextroampheta Take 10 mg by 0 013 [...] Procedure Name Priority Date/Time Associated Comments Diagnosis MISC. Compliance 360 Routine 02/13/2018 2:54 PM Results for [facility] CDT procedure are i n the results section. documented in this encounter Results [employer] (02/13/2018 2:54 PM CDT) [facility] Signature Test Name aitainment 02/14/2018 Compliance 360 custom panel 8:00 AM [employer] [facility] Result SEE COMMENT 02/28/2018 Compliance 360 3:00 PM [employer] [facility] Comment: For final report, select Lab-Send Out L ab Results hyperlink below. Specimen Anatomical Collection Method Collection Time Receive d Time (Source) Location / / Volume Laterality Varies 02/13/2018 2:54 PM 8 8:00 CDT AM CDT Narrative This result has an attachment that is no t available. Dillan Boone M.D. LAB MISC ORDERABLES Performing Organization Address City/State/ZIP Code Phon e Number [facility] [address] [place] [address] documented in this encounter Visit Diagnoses Diagnosis Atrial Septal Defect Unspecified (HCC) documented in this encounter Care Teams Leno Sewer Relationship Specialty Start Date End Date Rubi Tavares APRN, C.N.P., PCP - General Family Medicine 04/21/19 D.N.P. [address] [place] [address] documented as of this encounter
--- OUTSIDE RECORDS SUMMARY | 2022-08-29 12:15 | XMS_ITS | Encounter Summary ---
:1975 Author Organization [facility] Address [address] [place] [address] Care Team Providers Name Role Phone Rubi Tavares APRN, C.N.P., D.N.P. Primary Care Provider Reason for Visit Reason Comments Med Refill Encounter Details Date Type Department Care Team Description 08/29/2018 Refill Department of Family Medicine, Rubi Tavares APRN, Med Refill [facility], in [place] C .N.P., D.N.P. [place], [place] [address] [place] [address] [place], [place] [address] [phone] Social History Tobacco Use Types Packs/Day Years [...] on filedocumented in this encounter Care Teams Trash Collector Supervisor Relationship Specialty Start Date End Date Rubi Tavares APRN, C.N.P., PCP - General Family Medicine 04/21/19 D.N.P. [address] [place] [phone] documented as of this encounter
--- OUTSIDE RECORDS SUMMARY | 2022-08-29 12:15 | XMS_ITS | Encounter Summary ---
:1975 Author Organization [facility] Address [address] [place] [address] Care Team Providers Name Role Phone Unassigned, Pcp Primary Care Provider Unavailable Encounter Details Date Type Department Care Team Description 07/17/2020 Admin Visit Department of Family Medicine, [facility] [place] in [place], [place] [address] [phone] Social History Tobacco Use Types Packs/Day [...] COVID19 Pending 07/17/2020 07/17/2020 07/17/2020 9:18 PM SANDING SUPERVISOR documented as of this encounter Care Teams Control Area Operator Relationship Specialty Start Date End Date Unassigned, Pcp PCP - General Family Medicine 04/22/19 documented as of this encounter
--- OUTSIDE RECORDS SUMMARY | 2022-08-29 12:15 | XMS_ITS | Encounter Summary ---
:1975 Author Organization [facility] Address [address] [place] [address] Care Team Providers Name Role Phone Rubi Tavares APRN C.N.PVicenta, D.N.P. Primary Care Provider Reason for Referral Medication Prior Authorization (Routine) - Authorized Specialty Diagnoses / Procedures Referred By Contact Refer red To Contact Rubi Tavares APRN, C.N.PVicenta, D.N.P. [address] [place] [phone] Referral ID Status Reason Start Date Expiration Date Visits V isits Requested Authorized [id number] Authorized 06/04/2018 06/04/2019 Reason for Visit Reason Comments Med Refill Encounter Details Date Type Department Care Team Description 06/04/2018 Refill Department of Family Medicine, Rubi Tavares APRN, Med Refill [facility], in [place] C .N.P., D.N.P. [address] [address] [place], [place] [address] [phone] Social History Tobacco Use Types Packs/Day Years [...] on filedocumented in this encounter Care Teams Jacquard Lace Weaver Relationship Specialty Start Date End Date Rubi Tavares APRN, C.N.P., PCP - General Family Medicine 04/21/19 D.N.P. [address] [place] [address] documented as of this encounter
--- OUTSIDE RECORDS SUMMARY | 2022-08-29 12:15 | XMS_ITS | Encounter Summary ---
:1975 Author Organization [facility] Address [address] [place] [address] Care Team Providers Name Role Phone Unassigned, Pcp Primary Care Provider Unavailable Reason for Visit Reason Onset Date Comments Testing For Upper Respiratory Virus Symptoms 09/19/2020 Encounter Details Date Type Department Care Team Description 09/19/2020 External Outreach Department of [facility] Elsa Schmidt Infection [facility] Medicine, [facility] Brittney Melchor Respiratory (Primary Clinic, in [facility] [address]) [place], [place] [address] [address] [place], [place] [phone] [address] (Work) [phone] Social History Tobacco Use Types Packs/Day Years Used Date Smoking Tobacco: Never Smokeless Tobacco: Never Alcohol Use Standard Drinks/Week Comments No 0 (1 standard drink = 0.6 oz pure alcoho l) Sex Assigned at Date Recorded Female 02/11/2018 8:36 AM CDT documented as of this encounter Progress Notes Radha Garland R.N. - 09/19/2020 10:33 AM CST Encounter created for symptomatic infectious disease screening with possible COVID, Influenza, and RSV testing. TH AND SAFETY COORDINATOR documented in this encounter Plan of Treatment Not on filedocumented as of this encounter Visit Diagnoses Diagnosis Infection Upper Respiratory - Primary documented in this encounter Additional Health Concerns Infection Onset Date Last Indicated Resolved Time COVID19 Pending 09/19/2020 09/19/2020 10/09/2020 4:45 AM HEALTH AND SAFETY COORDINATOR documented as of this encounter Care Teams Medical Billing Coordinator Relationship Specialty Start Date End Date Unassigned, Pcp PCP - General Family Medicine 04/22/19 documented as of this encounter
--- OUTSIDE RECORDS SUMMARY | 2022-08-29 12:15 | XMS_ITS | Encounter Summary ---
:1975 Author Organization [facility] Address [address] [place] [address] Care Team Providers Name Role Phone Rubi Tavares APRN, C.N.P., D.N.P. Primary Care Provider Encounter Details Date Type Department Care Team Description 02/13/2018 Hospital Encounter Department of Gary Talamantes [facility] Research Laboratory Medicine Tanisha Sims Exam and Pathology, [address] [place] [address] in [facility] [address] [place] [phone] [place] [address] (Work) [place], [place] [phone] [address] (Fax) [phone] Social History Tobacco Use Types Packs/Day Years [...] nostril(s). fluticasone-vilanterol Inhale 1 puff 60 each 10/21/2017 10/27/2018 (BREO ELLIPTA) 200-25 daily. mcg/act inhaler HYDROcodone-acetaminophen Take 1 tablet by 0 05/1810/10/2018 (for_NORCO) 5-325 mg per mouth as needed. tablet traZODone (for_DESYREL) Take 2 tablets by 0 05/1304/30/2018 50 mg tablet mouth at bedtime. documented as of this encounter Plan of Treatment Not on filedocumented as of this encounter Procedures Procedure Name Priority Date/Time Associated Diagnosis Comme nts MISC RESEARCH Routine 02/13/2018 9:28 AM Clinical Research Res ults for this ORDER, B CDT Exam procedure are i n the results section. documented in this encounter Results Miscellaneous Research, B (02/13/2018 9:28 AM CDT) P athologist Signature Number of 6 02/13/2018 [facility] Specimens 9:28 AM CDT LABORATORIES - [facility] Specimen (Source) Anatomical Collection Method Collection Time Re ceived Time Location / / Volume Laterality Blood (Blood, 02/13/2018 9:28 AM Venous) CDT Gary Talamantes M.D. LAB RESEARCH NO RESULT JOE RIVERA Performing Organization Address City/State/ZIP Code Phon e Number [facility]ORATORIES - [address] [place], [place] [address] [facility] documented in this encounter Visit Diagnoses Diagnosis Clinical Research Exam documented in this encounter Care Teams Stereo Operator Relationship Specialty Start Date End Date Rubi Tavaers APRN, C.N.P., PCP - General Family Medicine 04/21/19 D.N.P. [address] [place] [address] documented as of this encounter
--- OUTSIDE RECORDS SUMMARY | 2022-08-29 12:15 | XMS_ITS | Encounter Summary ---
:1975 Author Organization [facility] Address [address] [place] [address] Care Team Providers Name Role Phone Rubi Tavares APRN, C.N.P., D.N.P. Primary Care Provider Encounter Details Date Type Department Care Team Description 06/19/2018 Orders Only [facility], Rubi Tavares, Bobbi ARROYO, [facility] C.N.P., D .N.P. Floor [address] [address] [place] [address] [phone] Social History Tobacco Use Types Packs/Day Years [...] on filedocumented in this encounter Care Teams Professor Of Marketing Relationship Specialty Start Date End Date Rubi Tavares APRN, C.N.P., PCP - General Family Medicine 04/21/19 D.N.P. [address] [place] [address] documented as of this encounter
--- OUTSIDE RECORDS SUMMARY | 2022-08-29 12:15 | XMS_ITS | Encounter Summary ---
:1975 Author Organization [facility] Address [address] [place] [address] Care Team Providers Name Role Phone Unassigned, Pcp Primary Care Provider Unavailable Reason for Visit Reason Comments COVID Nurse Line Encounter Details Date Type Department Care Team Description 12/25/2019 Clinical Communication Central Appointment Line, Covid COVID Nurse Line Office in [facility] [address] [place] [address] Social History Tobacco Use Types Packs/Day Years Used Date Smoking Tobacco: Never Smokeless Tobacco: Never Alcohol Use Standard Drinks/Week Comments No 0 (1 standard drink = 0.6 oz pure alcoho l) Sex Assigned at Date Recorded Female 02/11/2018 8:36 AM CDT documented as of this encounter Miscellaneous Notes Telephone Encounter - Nguyen Trujillo R.N. - 12/25/2019 3:41 PM CDT COVID-19 Nurse Line Screening ASSESSMENT COVID 19 Screening Have you had close contact with a person who has a LABORATORY CONFIRMED case of COVID-19?: No - Continue screening. In the last 48 hours have you had any of the following symptoms?: New cough, New shortness of breath, New respiratory distress (fast breathing), New myalgias (muscle aches)(Symptoms started on Saturday.Patient originally thought it was allergies. Worsening cough. Harder to breathe, tightness. Seems like working harder to breathe. 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 ) PLAN Endpoint recommendation: Screening positive, testing indicated, advised to be swabbed for COVID-19, sent to [place], [place] Care Points provided: Standard precautions for all patients: Wash hands often with soap and water for at least 20 seconds, especially after blowing your nose, coughing, sneezing, or having been in a public place. If soap and water aren't available, use a hand certified peer specialist that contains at least 60% alcohol. Avoid close contact with anyone who may be exhibiting respiratory symptoms such as coughing and sneezing. Avoid touching your eyes, nose and mouth. Clean and disinfect frequently touched surfaces daily. Cover your mouth and nose with a cloth face cover when around others or in public. The cloth face cover is not a substitute for social distancing. Continue to keep about 6 feet between yourself andothers. Stay home as much as possible (only going out for essential items or medical care). Educational Resource: https://www.cdc.gov/coronavirus/2019-ncov/tebbkfc-uhpxzem-jyhf/index.html Recommendations as testing criteria is met: Stay home except to get medical care. Avoid public areas(do not go to work, school, etc). Avoid public transportation, riding sharing (if possible) or taxis. Stay in a specific sick room if possible and away from other people and pets in your home. Use a s eparate bathroom if possible. Wear a cloth face covering, over your nose and mouth if you must be around other people even at home). Contact employer/occupational health department to notify them that they are being tested. If patient is living with a high risk family member, seek medical advice from their primary care provider. *High risk includes family member with heart of lung disease (e.g. asthma, COPD), immunosuppression (e.g. cancer, HIV/AIDS), women, or 65 years and older. Go to [facility] emergency department if any of the following occur: 1) New shortness of breath at rest, 2) Pain, pressure or tightness unrelated to coughing in the chest, jaw or arm, 3) Newly confused or unable to stay alert and awake. Notify primary care provider if any new or worsening symptoms. Education Resources: https://www.cdc.gov/coronavirus/2019-ncov/un-tdn-hmc-sick/dspyy-wlms-qrtm.html Education: patient/caregiver Patient/caregiver able to teach back Patient agreeable to plan of care: Yes The following references were used: [facility] IPAC novel coronavirus (COVID- 19) resources CDC web site https://www.cdc.gov/coronavirus/2019-ncov/summary.html [place] Department of Health ([facility]) Guidelines for self-isolation Nursing judgement documented in this encounter Plan of Treatment Not on filedocumented as of this encounter Visit Diagnoses Not on filedocumented in this encounter Care Teams Water Valve Repairer Relationship Specialty Start Date End Date Unassigned, Pcp PCP - General Family Medicine 04/22/19 documented as of this encounter
--- OUTSIDE RECORDS SUMMARY | 2022-08-29 12:15 | XMS_ITS | Encounter Summary ---
:1975 Author Organization [facility] Address [address] [place] [address] Care Team Providers Name Role Phone Unassigned, Pcp Primary Care Provider Unavailable Reason for Visit Reason Comments Congestion presents with c/o cough, honey al congestion and intermittent fevers since last Saturday. States she was seen yesterday and started on z-pack but today she feels worse Encounter Details Date Type Department Care Team Description 06/23/2019 Emergency [facility] Peter Gonzalez Infection Upper Department Dulce KAUFMAN M.D. Respiratory (Primary [id number] [facility] [address] [address] [facility] [address]) [place] [phone] (Wo rk) Social History Tobacco Use Types Packs/Day Years Used Date Smoking Tobacco: Never Smokeless Tobacco: Never Alcohol Use Standard Drinks/Week Comments No 0 (1 standard drink = 0.6 oz pure alcoho l) Sex Assigned at Date Recorded Female 02/11/2018 8:36 AM CDT documented as of this encounter Last Filed Vital Signs Vital Sign Reading Time Taken Comments Blood Pressure 150/84 06/23/2019 1:09 PM CDT Pulse 78 06/23/2019 1:09 PM CDT Temperature 36.8 ??C (98.2 ??F) 06/23/2019 1:09 PM CDT Respiratory Rate 16 06/23/2019 1:09 PM CDT Oxygen Saturation 98% 06/23/2019 1:09 PM CDT Inhaled Oxygen Concentration - - Weight 95 kg (209 lb 7 oz) 06/23/2019 1:10 PM CDT Height - - Body Mass Index 31.56 02/13/2018 12:34 PM CDT documented in this encounter Discharge Instructions AttachmentsThe following attachments cannot be sent through Care Everywhere. Viral Respiratory Infection Ranh-Bf-Uisi (Sami)documented in this encounter Medications at Time of [...] tablet ONE-HALF TABLETS BY MOUTH ONCE DAILY fluticasone (FLONASE) 50 Administer 2 sprays 54 g 3 mcg/actuation nasal spray into each nostril 2 (two) times a day. ibuprofen Take 200 mg by 0 (for_ADVIL,MOTRIN) 200 mg mouth. capsule methylphenidate HCl Take 18 mg by mouth 0 (CONCERTA) 18 mg CR daily. tablet traZODone (DESYREL) 50 mg Take 2 tablets (100 60 tablet 0 0 06/07/2018 tablet mg total) by mouth at bedtime. HYDROcodone-acetaminophen Take 2 tablets by 6 tablet 0 (NORCO) 5-325 mg per mouth every 6 (six) tabletIndications: Acute hours as needed for Pain pain Indication: Acute Pain. azithromycin (ZITHROMAX) Take 1-2 tablets by 0 06/27/2019 250 mg tablet mouth daily. cyclobenzaprine Take 10 mg by 0 05/16/20122021 (for_FLEXERIL) 10 mg mouth. tablet traZODone (DESYREL) 50 mg Take 2 tablets (100 60 tablet 11 1 10/30/2017 06/09/2021 tablet mg total) by mouth at bedtime. documented as of this encounter ED Notes Len Gonzalez III, M.D. - 06/23/2019 1:20 PM CDT SUBJECTIVE CHIEF COMPLAINT/REASON FOR VISIT Congestion (presents with c/o cough, nasal congestion and intermittent fevers since last Saturday. States she was seen yesterday and started on z-pack but today she feels worse) HISTORY OF PRESENT ILLNESS History provided by: Patient Neck Pain Pain location: Generalized neck Quality: Aching (stiff) Pain radiates to: Does not radiate Pain severity: Mild Pain is: Unable to specify Onset quality: Sudden Duration: 1 day Timing: Constant Progression: Unchanged Chronicity: New Context comment: Respiratory infection Relieved by: Nothing Worsened by: Bending and position Associated symptoms: fever Fever: Duration: 1 day Timing: Intermittent Temp source: Subjective Progression: Unable to specify REVIEW OF SYSTEMS Constitutional: Positive for fever. Respiratory: Negative. Cardiovascular: Negative. Gastrointestinal: Negative. Musculoskeletal: Positive for neck pain. Skin: Negative. OBJECTIVE Initial Vitals [06/23/19 1309] Temperature Pulse Rate Heart Rate Resp Rate Blood Pressure SpO2 36.8 ??C 78 -- 16 150/84 98 % Pain Score -- PHYSICAL EXAMINATION Constitutional: Vital signs are normal. No distress. HENT: Right Ear: Tympanic membrane normal. Left Ear: Tympanic membrane normal. Nose: Nose normal. Mouth/Throat: Oropharynx is clear and moist. Mucous membranes are moist. Dental: Good dentition. Eyes: Conjunctivae are normal. Pupils are equal, round, and reactive to light. Neck: Trachea normal and normal range of motion. Pain with movement present. No neck adenopathy. No tracheal deviation present. No Brudzinski's sign and no Kernig's sign noted. No thyromegaly present. Cardiovascular: Normal rate, regular rhythm, S1 normal, S2 normal and normal heart sounds. Pulses are strong and palpable. Pulmonary/Chest: Effort normal and breath sounds normal. There is normal air entry. Neurological: She is alert. Nursing note and vitals reviewed. ASSESSMENT/PLAN Impression and Plan Symptomatic therapies discussed in detail. Recommend followup if not improving within the next sevento 10 days. Differential Diagnoses Differential diagnosis includes but is not limited to: Arthritis, fracture, spinal stenosis, sprain and strain. This includes the life threatening complications of fractures. I reviewed previous medical records including documentation from previous visits. I personally reviewed the lab result(s) and my interpretation is normal. Final Diagnoses: as of Jun 23 143 Infection Upper Respiratory Len Gonzalez III, M.D. 06/23/19 1453 documented in this encounter Plan of Treatment Not on filedocumented as of this encounter Procedures Procedure Name Priority Date/Time Associated Diagnosis Comme nts CBC WITH STAT 06/23/2019 1:32 PM Results f or this DIFFERENTIAL, B CDT procedure ar e in the results section. C-REACTIVE PROTEIN STAT 06/23/2019 1:32 PM Res ults for this (CRP), S/P CDT procedure are i n the results section. BASIC METABOLIC STAT 06/23/2019 1:32 PM Result s for this PANEL, S/P CDT procedure are i n the results section. documented in this encounter Results CRP (C-Reactive Protein) (06/23/2019 1:32 PM CDT) athologist Signature C-Reactive 6.7 <=8.0 mg/L 06/23/2019 [facility] Protein (CRP), 2:02 PM CDT S Specimen Anatomical Collection Method Collection Time Receive d Time (Source) Location / / Volume Laterality Blood (Blood, 06/23/2019 1:32 PM 06/23/20 19 1:35 Venous) CDT PM CDT Len Gonzalez III, M.D. LAB BLOOD ADD-ON Performing Organization Address City/State/[facility] Code Phon e Number [facility]- [address] [place] [phone] [place] [address] System [address] (ABNORMAL) CBC with Differential (06/23/2019 1:32 PM CDT) [facility] gist Method Time Signature Hemoglobin 14.0 11.6 - 06/23/2019 [facility] 15.0 g/dL 1:51 PM CDT Hematocrit 42.3 35.5 - 06/23/2019 [facility] 44.9 % 1:51 PM CDT Erythrocytes 4.59 3.92 - 06/23/2019 [facility] 5.13 1:51 PM CDT x10(12)/L MCV 92.2 78.2 - 06/23/2019 [facility] 97.9 fL 1:51 PM CDT RBC Distrib Width 12.0 (L) 12.2 - 06/23/2019 [facility] 16.1 % 1:51 PM CDT Platelet Count 201 157 - 371 06/23/2019 [facility] x10(9)/L 1:51 PM CDT Leukocytes 7.5 3.4 - 9.6 06/23/2019 [facility] x10(9)/L 1:51 PM CDT Neutrophils 4.19 1.56 - 06/23/2019 CN[facility] 6.45 1:51 PM CDT x10(9)/L Lymphocytes 2.60 0.95 - 06/23/2019 CN[facility] 3.07 1:51 PM CDT x10(9)/L Monocytes 0.40 0.26 - 06/23/2019 [facility] 0.81 1:51 PM CDT x10(9)/L Eosinophils 0.22 0.03 - 06/23/2019 [facility] 0.48 1:51 PM CDT x10(9)/L Basophils 0.05 0.01 - 06/23/2019 [facility] 0.08 1:51 PM CDT x10(9)/L Specimen Anatomical Collection Method Collection Time Receive d Time (Source) Location / / Volume Laterality Blood (Blood, 06/23/2019 1:32 PM 06/23/20 19 1:35 Venous) CDT PM CDT Len Gonzalez III, M.D. LAB BLOOD ADD-ON Performing Organization Address City/State/ZIP Code Phon e Number [facility]- [address] [place] [phone] [place] [address] System [address] BMP (Basic Metabolic Panel) (06/23/2019 1:32 PM CDT) P athologist Signature Potassium, P 3.9 3.6 - 5.2 06/23/2019 [facility] mmol/L 2:02 PM CDT Sodium, P 140 135 - 145 06/23/2019 [facility] mmol/L 2:02 PM CDT Chloride, P 104 98 - 107 06/23/2019 [facility] mmol/L 2:02 PM CDT Bicarbonate, P 25 22 - 29 06/23/2019 [facility] mmol/L 2:02 PM CDT Anion Gap, P 11 7 - 15 06/23/2019 [facility] 2:02 PM CDT BUN (Blood Urea 10 6 - 21 06/23/2019 [facility] Nitrogen), P mg/dL 2:02 PM CDT Creatinine 0.71 0.59 - 06/23/2019 [facility] 1.04 mg/dL 2:02 PM CDT eGFR-Black/Afric >90 >=60 06/23/2019 [facility] an Lithuanian mL/min/BSA 2:02 PM CDT Comment: ----ADDITIONAL INFORMATION---- Estimated GFR calculated using the 2009 CKD_EPI creatinine equation. eGFR Non-Black/ >90 >=60 mL/min/BSA 06/23/2019 2:02 PM CDT [facility] Comment: ----ADDITIONAL INFORMATION---- Estimated GFR calculated using the 2009 CKD_EPI creatinine equation. Calcium, Total, P 9.0 8.6 - 10.0 mg/dL 06/23/2019 2:02 PM CDT CN[facility] Glucose, P 129 70 - 140 mg/dL 06/23/2019 2:02 PM CDT C NFL Specimen Anatomical Collection Method Collection Time Receive d Time (Source) Location / / Volume Laterality Blood (Blood, 06/23/2019 1:32 PM 06/23/20 1:35 Venous) CDT PM CDT Len Gonzalez III, M.D. LAB BLOOD ADD-ON Performing Organization Address City/State/[facility] Code Phon e Number [facility]- [address] [place] [phone] [place] [address] System in [address] documented in this encounter Visit Diagnoses Diagnosis Infection Upper Respiratory - Primary documented in this encounter Care Teams Rn Complex Care Relationship Specialty Start Date End Date Unassigned, Pcp PCP - General Family Medicine 04/22/19 documented as of this encounter
--- OUTSIDE RECORDS SUMMARY | 2022-08-29 12:15 | XMS_ITS | Encounter Summary ---
:1975 Author Organization [facility] Address [address] [place] [address] Care Team Providers Name Role Phone Rubi Tavares APRN, C.N.P., D.N.P. Primary Care Provider Encounter Details Date Type Department Care Team Description 08/05/2018 Orders Only Department of Family Rubi Tavares AP RN, Medicine, [place] C.N.P., D .N.P. Clinic, in [address] [address] [place] [address] [place], [place] [address] [phone] Social History Tobacco Use Types Packs/Day Years [...] on filedocumented in this encounter Care Teams Regional Marketing Manager Relationship Specialty Start Date End Date Rubi Tavares APRN, C.N.P., PCP - General Family Medicine 04/21/19 D.N.[address] [place] [address] documented as of this encounter
--- OUTSIDE RECORDS SUMMARY | 2022-08-29 12:15 | XMS_ITS | Encounter Summary ---
:1975 Author Organization [facility] Address [address] [place] [address] Care Team Providers Name Role Phone Rubi Tavares APRN, C.N.P., D.N.P. Primary Care Provider Reason for Visit Reason Onset Date Comments [facility]: [facility] 02/28/2018 Encounter Details Date Type Department Care Team Description 02/28/2018 Clinical Communication Department of Mel Francisco [facility]: [facility] Medical Genetics in [place], [place] [address] [place] [address] Social History Tobacco Use Types Packs/Day Years Used Date Smoking Tobacco: Never Smokeless Tobacco: Never Alcohol Use Standard Drinks/Week Comments No 0 (1 standard drink = 0.6 oz pure alcoho l) Sex Assigned at Date Recorded Female 02/11/2018 8:36 AM CDT documented as of this encounter Miscellaneous Notes Telephone Encounter - Denzel Mock - 02/28/2018 7:56 AM CDT Test Ordered: Single Site Lab: [facility] GC: Mel Francisco CGC Genetic testing has been completed for Alcon Zamora and available via the [facility] portal. Lab Report Date: 02/27/18 documented in this encounter Plan of Treatment Not on filedocumented as of this encounter Visit Diagnoses Not on filedocumented in this encounter Care Teams Process Development Manager Relationship Specialty Start Date End Date Rubi Tavares APRN, C.N.P., PCP - General Family Medicine 04/21/19 D.N.P. [address] [place] [address] documented as of this encounter
--- OUTSIDE RECORDS SUMMARY | 2022-08-29 12:15 | XMS_ITS | Encounter Summary ---
:[address] [facility] Address [address] [place] [address] Care Team Providers Name Role Phone Rubi Tavares APRN, C.N.P., D.N.P. 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 [address] [facility] [address] [place] [id number] Referral ID Status Reason Start Date Expiration Date Visits Requ ested Visits Authorized [id number] Closed 02/13/2018 02/13/2019 1 1 Encounter Details Date Type Department Care Team Description 02/13/2018 Hospital Encounter Department of Juan M Chronic Obstructive Pulmonary Disease (HCC); Cardiovascular Dominique Tyson M.D. Defect Atrial Septal Secundum (HCC); Diseases in [place], [address] Lizy Danlos Syndrome [place], [place] [address] [facility] [address] [place], [place] [phone] (Work) [phone] Social History Tobacco Use Types Packs/Day Years [...] Name Priority Date/Time Associated Diagnosis Comme nts (TTE) 2D ECHO Routine 02/13/2018 11:36 AM Chronic Obstructive Results for this DOPPLER COLOR CDT Pulmonary Disease procedure are in (HCC) the results Defect Atrial Septal section . Secundum (HCC) Lizy Danlos Syndrome documented in this encounter Results (TTE) 2D ECHO DOPPLER COLOR (02/13/2018 11:36 AM CDT) [facility] Method Time Signature Ejection Fraction 58 MC CV EIMS Sinus of Valsalva 29 MC CV EIMS Aortic arch 24 MC CV EIMS Proximal Ascending 26 MC CV EIMS Aorta Mid-Ascending Aorta 28 MC CV EIMS Distal Ascending 25 MC CV EIMS Aorta LV Mass Index 60 MC CV EIMS LV End-Diastolic 47 MC CV EIMS Diameter LV End-Systolic 32 MC CV EIMS Diameter MV E Velocity 0.8 MC CV EIMS MV A Velocity 0.6 MC CV EIMS MV E/A 1.33 MC CV EIMS MV e' Velocity 0.09 MC CV EIMS Medial MV E/e' Medial 8.9 MC CV EIMS Left ventricular 42 MC CV EIMS stroke volume index Cardiac Output 5.17 MC CV EIMS Cardiac Index 2.55 MC CV EIMS LV Interventricular 8 MC CV EIMS Septal Wall Thickness LV Posterior Wall 8 MC CV EIMS Thickness Aortic valve area 2.74 MC CV EIMS LA Volume Index 26 MC CV EIMS Anatomical Region Laterality Modality Echocardiography Specimen (Source) Anatomical Collection Method Collection Time Re ceived Time Location / / Volume Laterality 02/13/2018 10:46 AM CDT Narrative 02/13/2018 12:13 PM CDT This result has an attachment that is no t available. See PDF For Result Procedure Note Dominique Mcgowan M.D. - 02/13/2018 See PDF For Result Dominique Mcgowan M.D. 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 [address] [place] [phone] documented as of this encounter
--- OUTSIDE RECORDS SUMMARY | 2022-08-29 12:15 | XMS_ITS | Encounter Summary ---
:1975 Author Organization [facility] Address [address] [place] [address] Care Team Providers Name Role Phone Unassigned, Pcp Primary Care Provider Unavailable Reason for Visit Reason Comments COVID Nurse Line Encounter Details Date Type Department Care Team Description 09/17/2020 Clinical Communication Division of ELISE Mata Nurse Kalee [facility] Internal Apple Saez R.N. [facility] [address] [facility] in [place], [place] [address] [place] [address] [place], [place] (Work) [phone] Social History Tobacco Use Types Packs/Day Years Used Date Smoking Tobacco: Never Smokeless Tobacco: Never Alcohol Use Standard Drinks/Week Comments No 0 (1 standard drink = 0.6 oz pure alcoho l) Sex Assigned at Date Recorded Female 02/11/2018 8:36 AM CDT documented as of this encounter Miscellaneous Notes Telephone Encounter - Apple Mata RAnneliese - 09/17/2020 5:34 PM CST COVID-19 Nurse Line Screening ASSESSMENT Combo COVID + Upper Respiratory Infection (URI) Screening Select the most appropriate pathway: : Adult Have you had close contact* with a person who has a LABORATORY CONFIRMED case of COVID-19 in the past 14 days?: No (Continue Screening) In the last 48 hours, have you had a fever* OR symptoms that are unrelated to a preexisting illness?: New nausea, New muscle aches, New headache Have you received a COVID-19 vaccine in the last 72 hours? : No vaccine received (Continue Screening) Do you have any of the following urgent symptoms?: No urgent symptoms noted (Continue Screening) Do you have any of the following respiratory syntonical virus (RSV) complications? : No complications noted (Continue Screening) Are all the following symptoms present: temperature of 100.0 degrees Fahrenheit or greater, muscle aches or headache AND a cough?: No all symptoms are not present (End Screening) Symptom Onset Date of symptom onset: 09/17/20 Testing Recommendation Endpoint Is testing recommended? : Recommended to test PLAN Endpoint recommendation: Screening positive, testing indicated, advised to be swabbed for COVID-19 and Influenza, sent to [facility] located at [address] [place] [address] You must call [phone] husam appointment time. Testing hours are Daily 9 am to 5 pm. When you arrive at the testing site: Remain in your vehicle and check-in by phone using the same appointment line number. and Please avoid using public transportation per CDC recommendation. If you do not have personal transportation please self-quarantine until a personal transportation option is available. Test order sent for 09/18/20. Care Points: -Wash hands frequently with soap and water for at least 20 seconds -If soap and water are not available, use a hand field service representative -Avoid touching your eyes, nose and mouth. -Clean and disinfect high-touch surfaces routinely. -Wear a mask over your nose and mouth. A cloth face cover is not a substitute for social distancing -Continue to keep about 6 feet between yourself and others. -Avoid public areas and public transportation. -Seek emergent care if any of the following occur Trouble breathing Bluish lips or face Persistent pain or pressure in the chest New confusion or inability to rouse. -Notify your regular care provider of any new or worsening symptoms. Symptomatic Carepoints: Separate yourself from others and stay in a specific sick room if able. Avoid sharing personal or household items. Rest. Hydrate. Take Acetaminophen/Ibuprofen as needed to control fever and muscles aches. Use over the counter medications as needed for other symptoms. Education: Patient/caregiver able to teach back Discussed how obtain test results via the patient portal. Patient agreeable to plan of care: Yes The following references were used: [facility] novel coronavirus (COVID- 19) resources Nursing judgement PMENT WASHER documented in this encounter Plan of Treatment Not on filedocumented as of this encounter Visit Diagnoses Not on filedocumented in this encounter Care Teams Chief Clinical Officer Relationship Specialty Start Date End Date Unassigned, Pcp PCP - General Family Medicine 04/22/19 documented as of this encounter
--- OUTSIDE RECORDS SUMMARY | 2022-08-29 12:15 | XMS_ITS | Encounter Summary ---
:1975 Author Organization [facility] Address [address] [place] [address] Care Team Providers Name Role Phone Unassigned, Pcp Primary Care Provider Unavailable Reason for Visit Reason Onset Date Comments Outpatient COVID-19 Testing 07/11/2020 Encounter Details Date Type Department Care Team Description 07/11/2020 External Outreach Department of [facility] Elsa Schmidt Infection Upper Medicine, [place] [facility], P.AVicenta-CVicenta Respiratory (Primary Clinic, in [place], [address]) [place], [place] [address] [address] [place], [place] [phone] [address] (Work) [phone] Social History Tobacco Use Types Packs/Day Years Used Date Smoking Tobacco: Never Smokeless Tobacco: Never Alcohol Use Standard Drinks/Week Comments No 0 (1 standard drink = 0.6 oz pure alcoho l) Sex Assigned at Date Recorded Female 02/11/2018 8:36 AM CDT documented as of this encounter Progress Notes Gissel Hensley, L.P.N. - 07/11/2020 10:03 AM CDT Encounter created for the drive-through COVID-19 testing. documented in this encounter Plan of Treatment Not on filedocumented as of this encounter Procedures Procedure Name Priority Date/Time Associated Diagnosis Comme nts SARS CORONAVIRUS-2 Routine 07/11/2020 9:48 PM Infection Upper Results for this RNA, V CDT Respiratory procedure are i n the results section. documented in this encounter Results SARS Coronavirus-2 RNA, V Symptomatic (07/11/2020 9:48 PM CDT) [facility] Method Time Signature SARS-CoV-2 Swab, 07/12/2020 ECLR Specimen Nasopharynx 5:55 PM CDT Source SARS CoV-2 Undetected Undetected 07/12/2020 ECLR RNA, TMA 5:55 PM CDT Comment: SARS-CoV-2 RNA absent. This result does not rule out COVID-19 in the patient, as the sensitivity of the test depends o n the timing of the specimen collection and the quality of the specim en. Result should be correlated with patient's history and clinical presentat ion. ----ADDITIONAL INFORMATION---- This test is performed using the Aptima SARS-CoV-2 assay ([employer] which has received Emergency Use Authori zation (EUA) by the U.S. Food and Drug Administration. Fact sheets for this Emergency Use Autho rization (EUA) assay can be found at the following links: For Healthcare Providers: https://www.fd a.gov/media/053601/download For Patients: https://www.fda.gov/media/ 530051/download Specimen Anatomical Collection Method Collection Time Receive d Time (Source) Location / / Volume Laterality Varies 07/11/2020 9:48 PM 0 9:48 (Nasopharynx) CDT PM CDT Anthony Schmidt P.A.-C. LAB MICROBIOLOGY - GENERAL O KENZIE Performing Organization Address City/State/[facility] Code Phon e Number [facility]- [address] [place] [address] [phone] [facility] [place] [address] [address] documented in this encounter Visit Diagnoses Diagnosis Infection Upper Respiratory - Primary documented in this encounter Additional Health Concerns Infection Onset Date Last Indicated Resolved Time COVID19 Pending 07/11/2020 07/11/2020 07/12/2020 5:56 PM CDT documented as of this encounter Care Teams Flight Engineer Relationship Specialty Start Date End Date Unassigned, Pcp PCP - General Family Medicine 04/22/19 documented as of this encounter
--- OUTSIDE RECORDS SUMMARY | 2022-08-29 12:16 | XMS_ITS | Encounter Summary ---
:1975 Author Organization [facility] Address [address] [place] [address] Care Team Providers Name Role Phone Carolyn Garland APRN, C.N.P. Primary Care Provider [phone] Encounter Details Date Type Department Care Team Description 01/08/2018 Nurse Triage Department of [facility], B, R.N. in [place], [place] [address] [place] [address] Social History Tobacco Use Types Packs/Day Years [...] on filedocumented in this encounter Care Teams Glaze Sprayer Relationship Specialty Start Date End Date Carolyn Garland APRN, C.N.P. PCP - General 02/28/17 01/10/18 documented as of this encounter
--- OUTSIDE RECORDS SUMMARY | 2022-08-29 12:16 | XMS_ITS | Encounter Summary ---
:1975 Author Organization [facility] Address [address] [place] [address] Care Team Providers Name Role Phone Carolyn Garland APRN, C.N.P. Primary Care Provider [phone] Reason for Referral Appointment Request (Routine) - Closed Specialty Diagnoses / Procedures Referred By Contact Refer red To Contact Laboratory Medicine Diagnoses Z00.00 (ICD-10-CM) - General Medical Examination Adult [facility] Procedures GLUCOSE, FASTING, S/P Referral ID Status Reason Start Date Expiration Date Visits Requ ested Visits Authorized [id number] Closed 11/12/2017 05/11/2018 1 1 ppointment Request (Routine) - Closed Specialty Diagnoses / Procedures Referred By Contact Refer red To Contact Laboratory Medicine Diagnoses na [facility] Procedures labs Clinic [address] [place] [phone] Phone: Fax: Referral ID Status Reason Start Date Expiration Date Visits Requ ested Visits Authorized [id number] Closed 11/12/2017 05/11/2018 1 1 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 MACHINE 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 Reason for Visit Appointment Request (Routine) - Closed Specialty Diagnoses / Procedures Referred By Contact Refer red To Contact Laboratory Medicine Diagnoses na [facility] Procedures labs Clinic [address] [place] [phone] Phone: Fax: Referral ID Status Reason Start Date Expiration Date Visits Requ ested Visits Authorized [id number] Closed 11/12/2017 05/11/2018 1 1 Encounter Details Date Type Department Care Team Description 11/16/2017 Hospital Encounter Department of Carolyn Garland Medical Laboratory Medicine BARRERA Saez CVicentaN VicentaPVicenta Examination Adult in [address] [phone] [place], [place] (Work) [phone] Social History Tobacco Use Types Packs/Day [...] Priority Date/Time Associated Diagnosis Comme nts LIPID PANEL, S Routine 11/16/2017 9:09 AM General Medical Resu lts for this PLEATING MACHINE OPERATOR Examination Adult procedure are in the results section. GLUCOSE, FASTING, Routine 11/16/2017 9:09 AM General Medical R esults for this S/P PLEATING MACHINE OPERATOR Examination Adult procedure are in the results section. documented in this encounter Results Glucose, Fasting (11/16/2017 9:09 AM PLEATING MACHINE OPERATOR) athologist Signature Glucose, 89 70 - 99 11/16/2017 [facility] Fasting, S mg/dL 10:12 AM [facility] Specimen Anatomical Collection Method Collection Time Receive d Time (Source) Location / / Volume Laterality Blood (Blood, 11/16/2017 9:09 AM 11/17/19 18 9:09 Venous) PLEATING MACHINE OPERATOR AM PLEATING MACHINE OPERATOR Carolyn Garland APRN C.N.P. LAB BLOOD NON ADD-ON Performing Organization Address City/State/ZIP Code Phon e Number [facility]- [id number] [address] [place] [facility] Lipid Panel (11/16/2017 9:09 AM PLEATING MACHINE OPERATOR) athologist Signature Cholesterol, 194 mg/dL 11/16/2017 [facility] Total 10:12 AM [facility] Comment: ----REFERENCE VALUE---- Desirable: < 200 Borderline high: 200 - 239 High: > or = 240 Triglycerides 73 mg/dL 11/16/2017 10:12 AM [facility] Comment: ----REFERENCE VALUE---- Normal: <150 Borderline high: 150-199 High: 200-499 Very high: > or =500 Cholesterol, HDL, S 51 >=50 mg/dL 11/16/2017 10:12 AM [facility] Calculated LDL 128 mg/dL 11/16/2017 10:12 AM [facility] Comment: ----REFERENCE VALUE---- Desirable: <100 Above Desirable: 100-129 Borderline high: 130-159 High: 160-189 Very high: > or =190 Cholesterol, Non-HDL, 143 mg/dL 11/16/2017 10:12 A M PLEATING MACHINE OPERATOR [facility] Comment: ----REFERENCE VALUE---- Desirable: <130 Above Desirable: 130-159 Borderline high: 160-189 High: 190-219 Very high: > or =220 Specimen Anatomical Collection Method Collection Time Receive d Time (Source) Location / / Volume Laterality Blood (Blood, 11/16/2017 9:09 AM 11/17/19 18 9:09 Venous) PLEATING MACHINE OPERATOR AM PLEATING MACHINE OPERATOR Carolyn Garland APRN, C.N.P. LAB BLOOD ADD-ON Performing Organization Address City/State/[facility] Code Phon e Number [facility]- [phone] [place] [phone] [place] [facility] documented in this encounter Visit Diagnoses Diagnosis General Medical Examination Adult documented in this encounter Care Teams Banking Consultant Relationship Specialty Start Date End Date Carolyn Garland APRN, C.N.P. PCP - General 02/28/17 01/10/18 documented as of this encounter
--- OUTSIDE RECORDS SUMMARY | 2022-08-29 12:16 | XMS_ITS | Encounter Summary ---
:1975 Author Organization [facility] Address [address] [place] [address] Care Team Providers Name Role Phone Unavailable Primary Care Provider Unavailable Encounter Details Date Type Department Care Team Description 11/30/2014 - Hospital Encounter HX [facility] Sarah Whiteside 01/25/2015 GRACE Tejada APRN, C.N.P., D.N.P. [address] [place] [address] Social History Tobacco Use Types Packs/Day Years Used Date Smoking Tobacco: Never Assessed Sex Assigned at Date Recorded Female 02/11/2018 8:36 AM CDT documented as of this encounter Discharge Summaries Ivory Smallwood P.T. - 01/24/2015 12:00 AM CDT [id number] DISCHARGE SUMMARY No treatment was performed on this date. Patient was evaluated and treated on 11/30/2014 and seen for 3 treatment sessions extending through 12/27/2014. She was seen under the referral of Adriana Whiteside DNP/DEA for chronic neck pain and left hip pain. Her plan of care did include patient education,home exercise program, strengthening, stabilization activities, postural education, and workstation ergonomics. Patient was safe and independent with her home exercise program. Pain levels have reducedto a 2 out of 10 and headaches had resolved. She had regained her range of motion and strength, achieving all goals. Patient did not return for further therapy and was discharged due to progress toward goals and independence with home program. Ivory Smallwood D.P.T./aos Electronically Signed By: IVORY SMALLWOOD On: 01/27/2015 09:31 AM Source: [facility] Document Id: [id number] documented in this encounter Medications at Time of Discharge Medication Sig Dispensed Refills Start Date End Date amphetamine-dextroampheta Take 10 mg by mouth. 0 11/21/2012 06/07/2018 mine (for_ADDERALL XR) 10 mg 24 hr capsule cyclobenzaprine Take 10 mg by mouth. 0 05/16/2012 06/26/2022 (for_FLEXERIL) 10 mg tablet fluticasone (for_FLONASE) Administer 2 sprays 0 0 05/11/2013 06/04/2018 50 mcg/actuation nasal into affected spray nostril(s). documented as of this encounter Progress Notes Ivory Smallwood, P.T. - 12/27/2014 12:00 AM CDT [id number] DAILY PROGRESS NOTE CHIEF COMPLAINT Patient has no new complaints. PHYSICAL EXAMINATION Pain levels are at a 2 out of 10. No headaches. Denies any numbness or tingling or weakness. Cervical range of motion is now within normal limits and is pain free. Strength is improved to a 5 out of 5 in the lower extremities. Patient is progressing beautifully in her home exercise program. Today we did perform and progress exercises and will discontinue cervical retraction. Added shoulder shrugs with 1 pound weight bilaterally. Progressed retraction with an orange Thera-Band. Scaption was added with 1 pound weight bilaterally from 0 to 90 degrees. Bridging will remain the same. She can progress byadding her hands across her chest. Side lying leg lifts cued patient to keep her hips rolled forwardand clam exercises were progressed to active external rotation with abduction now the feet. Patient tolerated this well. Patient is performing 10 repetitions of each. She will gradually perform up to 3 x 10 repetitions as tolerated. Total treatment time today was 35 minutes. Patient is progressing nicely towards goals. Our initial plan of care extended for 6 weeks. Patient's progressing a little quicker than anticipated. Patient will see how she feels in the next 7 to 10 days. If she is feeling better and pain levels have continued to reduce, she will go ahead and cancel so we can discharge her plan of care. If she is still having some pain, she will com in and we will progress her homeprogram. Ivory Smallwood D.P.T./brayden Electronically Signed By: IVORY SMALLWOOD On: 12/29/2014 01:51 PM Source: [facility] Document Id: [id number] Ivory Smallwood P.T. - 12/07/2014 12:00 AM CDT [id number] DAILY PROGRESS NOTE CHIEF COMPLAINT Patient reports no change in symptoms. Denies any headaches, numbness, tingling or weakness. Today we did perform exercises previously prescribed including clam exercises which may be increased to 3 sets of 10 as tolerated, side-lying hip abduction leg lifts may be increased to 3 x 10 repetitions. We also added bridging, cuing patient to keep her cervical spine in a neutral position and doing it without a pillow or a very flat pillow cuing on transverse abdominis contraction as well as gluteal sets to enhance on the bridge. Patient will also initiate scaption in standing from 0 to 90 degrees bilaterally. We also performed at 2 x 10 repetitions of each of those. We also initiated cervical retraction as well as scap sets at 2 x 10 repetitions. She is performing them correctly. Improved contraction with the scap sets was noted patient tolerated our session well. Total treatment time today was 25 minutes. Patient provided with a written handout with illustrations and demonstrated with independence, verbalized understanding. Plan to follow up with patient in approximately 1 week. Ivory Smallwood D.P.T./brayden Electronically Signed By: IVORY SMALLWOOD On: 12/16/2014 10:45 AM Source: [facility] Document Id: [id number] documented in this encounter Consult Notes Ivory Smallwood P.T. - 11/30/2014 12:00 AM CDT [id number] PHYSICAL THERAPY INITIAL EVALUATION Patient is referred to physical therapy for chronic neck pain and left hip pain under referral of Adriana Whiteside. Patient reports both have been chronic conditions, she reports her neck pain is worseand has been bothering her since 1999. She noted that her upper trapezius essentially locked up on her in 1999 and she had intermittent episodes of this before the daily neck pain began. She has had daily neck pain for years. She did have cervical x-ray and MRI performed in 2012 and she did consult with orthopedics provider Dr. Madrigal. According to the imaging and documentation within his note, he noted some degenerative disk disease at C5 and C6, and a possible disk bulge between C6 and C7. She does have a reversal of the normal cervical lordosis from C1 to C4 as noted in Dr. Madrigal's note from 04/10/2013 in reference to an x-ray that he performed. No current imaging has been performed at this time. She denies any radiating pain. Her pain seems to be located in the neck and radiates into theupper trapezius and into the paraspinals, but nothing to the arms. She does note bilateral arm numbness and tingling with the left greater than the right. She also notes that this increases with improved posture. She is right-hand dominant. She has noted no change in dexterity or fine motor skills. The patient also reports left hip pain. She reports this has been going on for a prolonged period of time as well, began with insidious onset. She notes occasional catching which causes her hip to give out and causes shooting pain. When it shoots pain, it shoots laterally down the leg but does not go past the knee. 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 She really notes these symptoms when she rotates on a pivoted foot. MEDICATIONS Albuterol. Methylphenidate. Flonase nasal. Trazodone. Budesonide. Ditropan. PAST MEDICAL HISTORY Lizy-Danlos syndrome, fibromyalgia, insomnia, bronchopulmonary dysplasia, chronic respiratory disease, atrial defect, cervical disk degeneration, and depression, as well as generalized anxiety disorder, and attention deficit disorder. Patient also has posttraumatic stress disorder. PHYSICAL EXAMINATION The patient demonstrates a forward head and rounded shoulder posture. Patient rounds the right shoulder greater than the left. Cervical range of motion: Flexion is limited by 50%, left rotation is limited by 50%, right rotation limited by 75%, cervical extension limited by 75% and this is the worst motion of the neck. Bilateral side bending both limited by 75% and both increase symptoms. Upper extremity range of motion is within normal limits. Manual muscle testing in the upper extremities is 5 out of 5 in strength. [place] [employer] Operator strength is intact and equal bilaterally. Reflexes are also intact and equal bilaterally in the upper extremities. Spurling compression and distraction did not reproduce symptoms.However, with compression increased mild symptoms and alleviated pain with distraction. Palpation ofASIS, PSIS, greater trochanter, and iliac crest are all equal in height. Manual muscle testing, kneeflexion, knee extension are 5 out of 5 in strength. Hip abduction, adduction and external rotation are a 4 out of 5. Her reflexes are intact and equal in the lower extremities. Hip range of motion is within normal limits. Patient has increased laxity in joints in general. Patient demonstrated negativetest with quadrant scouring. Obers testing is negative. She is sensitive over the greater trochanterto palpation. Patient will be treated for left hip pain as well as neck pain, both chronic in nature. Ready to learn. No apparent learning barriers were identified. Learning preferences include listening. Explained diagnosis and treatment plan. Patient/Child/Caregiver expressed understanding of the content. Patient does require skilled physical therapy to develop an independent home exercise program to improve range of motion, strength and limit pain. IMPRESSION/REPORT/PLAN Today we did initiate a home exercise program. 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 Patient will take a look at her workstation setup. Patient will also perform cervical retraction, bilateral scap sets. We did provide patient with an orange Thera-Band as she was having difficulty with the contraction and did better with the Thera-Band and therefore she will perform it this way if possible. We also had patient perform side-lying hip abduction with a pillow between her knees to maintain neutral positioning of the hip. Also performing clam exercises up to 2 x 10 repetitions each to be performed daily. She is provided with a written handout with illustrations. She tolerated this well. PATIENT GOALS 1. Patient will safely and independently perform an independent home exercise program in 3 weeks. 2. Patient will note a reduction in pain levels from an 8 out of 10 at worst, down to a 4 out of 10 at worst, with periods of being pain free within 6 weeks. 3. Patient will demonstrate a 25% increase in cervical range of motion within 6 weeks. 4. Patient will demonstrate improved strength to a 4+ out of 5 or greater of the left hip abduction,adduction and external rotation within 6 weeks. PLAN OF CARE Patient education in home exercise program, strengthening, stabilization activities, postural education, and workstation ergonomics. She has good rehab potential to achieve goals. Plan to see patient initially beginning with 2 times a week, gradually decreasing down to 1 time per week as patient demonstrates independence with her home program. We will see patient for a period of 6 weeks. Ivory Smallwood D.P.T./brayden Electronically Signed By: IVORY SMALLWOOD On: 12/07/2014 01:28 PM Modified by and Electronically Signed by: IVORY SMALLWOOD On: 12/07/2014 01:28 PM Co-Signed By: ADRINAA WHITESIDE DNP, FNP On: 12/07/2014 04:39 PM Source: [facility] Document Id: [id number] documented in this encounter Miscellaneous Notes Miscellaneous - Conversion, Historical Provider Ser - 12/09/2014 3:08 PM CDT Coding Summary-Paper Based CODING DATE: 12/09/2014 FINAL [facility] STATUS: Still Patient/Expected to Rtn [facility] PAYOR: MMSI ADMIT DX: V57.1 Care Involving Other Physical Therapy REASON FOR VISIT DX: V57.1 Care Involving Other Physical Therapy FINAL DX: PRINCIPAL: V57.1 Care Involving Other Physical Therapy SECONDARY: 338.29 Other Chronic Pain 723.1 Cervicalgia 719.45 Pain in Joint Involving Pelvic Region and Thigh PROCEDURES DOCTOR NAME DATE NOTE: The code number assigned matches the documented diagnosis and / or procedure in the patient's chart. However, the narrative phrase printed from the coding software may appear abbreviated, or result in slightly different terminology. Coded By: NATHANIEL HOWELL Date Saved: 12/09/2014 03:08 pm [facility] Document Id: [id number] documented in this encounter Plan of Treatment Not on filedocumented as of this encounter Visit Diagnoses Not on filedocumented in this encounter
--- OUTSIDE RECORDS SUMMARY | 2022-08-29 12:16 | XMS_ITS | Encounter Summary ---
:1975 Author Organization [facility] Address [address] [place] [address] Care Team Providers Name Role Phone Rubi Tavares APRN, C.N.P., D.N.P. Primary Care Provider Encounter Details Date Type Department Care Team Description 01/22/2018 Orders Only Department of Family Rubi Tavares AP RN, Medicine, [place] C.N.P., D .N.P. Clinic, in [address] [address] [place] [address] [place], [place] [address] [phone] Social History Tobacco Use Types Packs/Day Years [...] on filedocumented in this encounter Care Teams Standards Analyst Relationship Specialty Start Date End Date Rubi Tavares APRN, C.N.P., PCP - General Family Medicine 04/21/19 D.N.P. [address] [place] [id number] documented as of this encounter
--- OUTSIDE RECORDS SUMMARY | 2022-08-29 12:16 | XMS_ITS | Encounter Summary ---
:1975 Author Organization [facility] Address [address] [place] [address] Care Team Providers Name Role Phone Rubi Tavares APRN, C.N.P., D.N.P. Primary Care Provider Encounter Details Date Type Department Care Team Description 01/22/2018 Orders Only Department of Family Rubi Tavares AP RN, Medicine, [place] C.N.P., D .N.P. Clinic, in [address] [id number] [place] [address] [place], [place] [address] [phone] Social History Tobacco Use Types Packs/Day Years [...] on filedocumented in this encounter Care Teams Head Men'S Golf Coach Relationship Specialty Start Date End Date Rubi Tavares APRN, C.N.P., PCP - General Family Medicine 04/21/19 D.N[address] [place] [phone] documented as of this encounter
--- OUTSIDE RECORDS SUMMARY | 2022-08-29 12:16 | XMS_ITS | Encounter Summary ---
:1975 Author Organization [facility] Address [address] [place] [address] Care Team Providers Name Role Phone Unavailable Primary Care Provider Unavailable Encounter Details Date Type Department Care Team Description 12/10/2014 Hospital Encounter HX [facility] Dianne Whiteside, BARRERA, C.N.P., D. N.P. [address] [place] [address] (Wo rk) Social History Tobacco Use Types Packs/Day Years Used Date Smoking Tobacco: Never Assessed Sex Assigned at Date Recorded Female 02/11/2018 8:36 AM CDT documented as of this encounter Last Filed Vital Signs Vital Sign Reading Time Taken Comments Blood Pressure 102/60 12/10/2014 1:55 PM CDT Pulse 68 12/10/2014 1:55 PM CDT Temperature - - Respiratory Rate 16 12/10/2014 1:55 PM CDT Oxygen Saturation - - Inhaled Oxygen Concentration - - Weight 83.8 kg (184 lb 11.9 oz) 12/10/2014 1:55 PM CDT Height 173 cm (5' 8.11) 12/10/2014 1:55 PM CDT Body Mass Index 28 12/10/2014 1:55 PM CDT documented in this encounter Medications at Time [...] documented as of this encounter Progress Notes Dianne Whiteside D.N.P., C.N.P. - 12/10/2014 1:45 PM CDT [id number] CHIEF COMPLAINT/REASON FOR VISIT Followup. HISTORY OF PRESENT ILLNESS Patient is a 39-year-old female that presents to the clinic today for ongoing followup per my request as it pertains to multiple issues. Her last routine physical examination was completed on November 16, 2014. She was noted to have a history of bronchial pulmonary dysplasia in which at that time she was not currently using any of her inhaled corticosteroids. I had recommended obtaining peak flow checks daily for a 2-week duration of time, with a followup pre and post spirometry testing. After spirometry testing was completed we are then going to initiate budesonide 0.5 mg per neb 2 times a day, as shehas been intolerant to using inhalers secondary to side effects of laryngitis. She is coming in for ongoing evaluation as it pertains to that. She also was referred to physical therapy for her chronic left hip pain, in which she does feel that this has been improving some of her symptoms. She is eagerto have ongoing followup with physical therapy. She has also been following up with physical therapyas it pertains to her neck pain, which she has also seen some improvement. She has a diffuse rash affecting the upper and lower extremities in which she indicates that going to a dye-free, scent-free laundry detergent she thinks that this has been helping. She indicates that she has eliminated gluten from her diet, which also she appreciates that she has also lost some weight. She overall indicates that she feels like she is otherwise doing quite well. She denies having any other further concerns orissues at this time. She is wondering other topical treatment she could apply to her rash to help with the symptoms. She also thinks that the rash is exacerbated by stress, as well, in which work has been somewhat stressful for her. She denies having any other issues at this time. PAST MEDICAL/SURGICAL HISTORY Reviewed. Please see chart. FAMILY HISTORY Reviewed. Please see chart. MEDICATIONS Reviewed. Please see chart. ALLERGIES Reviewed. Please see chart. PHYSICAL EXAMINATION GENERAL: Patient is an alert, well-nourished, 39-year-old female, otherwise appears to be in no acute distress. HEAD: Normocephalic, atraumatic. SKIN: Diffuse rash is noted to the upper and lower extremities, characteristic of macules, some being excoriated, but does seem to be improving based upon my evaluation on November 16, 2014. Old scars are present. DIAGNOSTICS Spirometry testing was completed (please see EMR) noting mild obstruction present. IMPRESSION/REPORT/PLAN 1. Bronchopulmonary dysplasia. 2. Left hip pain and chronic neck pain. 3. Rash. PLAN: 1. Bronchopulmonary dysplasia: Presently at this time, we will continue our treatment as recommendedto initiate budesonide 0.5 mg per neb 2 times a day, in which she is to continue doing peak flow meters. I would then recommend recheck of spirometry again after initiating this in another month's duration. We will plan on setting this up for the patient. She feels comfortable with this treatment plan. 2. Chronic left hip pain and neck pain: Presently at this time, we will continue to have the patientfollow up with physical therapy services as it pertains to rehabilitation. She feels very comfortable this treatment plan. 3. Rash: After discussing overall findings at length with the patient, I indicated I would like to encourage her to continue staying on a gluten-free diet and also incorporate a dairy-free diet to helpwith these symptoms. She was given a prescription for desonide topical cream 0.05% to apply to the affected areas 3 times a day as needed, a quantity of 60 g with 3 refills are authorized. She is to follow up if she does not feel that this helps with her symptoms. She feels very comfortable with this treatment plan. She otherwise denied any further questions or concerns. Patient left clinic in no acute distress. Ready to learn. No apparent learning barriers were identified. Learning preferences include listening. Explained diagnosis and treatment plan. Patient understanding of the content. Dianne Whiteside D.N.P./Natasha/brayden Electronically Signed By: DIANNE WHITESIDE DNP, FNP On: 12/13/2014 10:50 AM Source: [facility] MHSDOLBEYNONRADSYS Document Id: [id number] documented in this encounter Procedure Notes Everett Lam - 03/07/2016 4:28 PM CDT Asthma Control Test (12 yrs and older) Asthma Control Test (12 yrs and older) Entered On: 03/07/2016 16:28 CDT Performed On: 03/07/2016 16:28 CDT by EVERETT LAM LPN ACT Past 4 weeks asthma interfered with work, school, or home : None of the Time Past 4 weeks how often short of breath : Once or twice a week Past 4 weeks symptoms effect sleep : Not at all Past 4 weeks how often inhaler or nebulizer used : Once a week or less Past 4 weeks rate your asthma control : Well controlled ACT Score : 22 ED visits past yr for asthma w/o hospital stay : 0 Hospitalizations/Overnight Stays in Past yr for Asthma : 0 EVERETT LAM LPN - 03/07/2016 16:28 CDT Source: [employer] Document Id: [id number] CDT!10 documented in this encounter Miscellaneous Notes Miscellaneous - Dee Dee Perez R.N. - 04/03/2016 12:01 PM CDT Med Management Document Contains Addenda Addendum by DIANNE WHITESIDE DNP, FNP on April 03, 2016 13:06:00 CDT From: DIANNE WHITESIDE DNP, FNP Sent: 04/03/2016 13:05:59 CDT Subject: RE:Med Management Approved Order:traZODone (traZODone 50 mg oral tablet) 2 tab(s) PO Bedtime Qty: 60 tab(s) Duration: 30 day(s) Refills: 0 Substitutions Allowed Route To Pharmacy - [facility] Signed by DIANNE WHITESIDE DNP, FNP 04/03/2016 13:05:54 From: DEE DEE PEREZ RN ( Kimberly/Deepika Nurse (RN)) To: DIANNE WHITESIDE DNP, FNP; Sent: 04/03/2016 12:01:30 CDT Subject: Med Management [facility] 12/10/14. Currently scheduled for appt 04/06/16. On hold pending signature Order:traZODone (traZODone 50 mg oral tablet) 2 tab(s) PO Bedtime Qty: 60 tab(s) Duration: 30 day(s) Refills: 0 Substitutions Allowed Route To Pharmacy - [facility] Document Id: [id number] Electronically signed by Jennifer [facility] Control System Manager [id number] at 02/11/2017 12:20 PM CDT Miscellaneous - Everett Lam - 03/07/2016 4:28 PM CDT Quality Measures Quality Measures Entered On: 03/07/2016 16:29 CDT Performed On: 03/07/2016 16:28 CDT by EVERETT LAM LPN Asthma Adult Asthma Control Test Score : 22 ED visits past yr for asthma w/o hospital stay : 0 Hospitalizations/Overnight Stays in Past yr for Asthma : 0 EVERETT LAM LPN - 03/07/2016 16:28 CDT Depression PHQ-9 Score : 0 EVERETT LAM LPN - 03/07/2016 16:28 CDT Source: [employer] Document Id: [id number] CDT!7 Miscellaneous - Everett Lam - 03/07/2016 4:27 PM CDT PHQ-9 PHQ-9 Entered On: 03/07/2016 16:28 CDT Performed On: 03/07/2016 16:27 CDT by EVERETT LAM LPN PHQ-9 Little interest or pleasure in doing things : Not at all Feeling down, depressed, or hopeless : Not at all Trouble falling or staying asleep, or sleeping too much : Not at all Feeling tired or having little energy : Not at all Poor appetite or overeating : Not at all Feeling bad about yourself or that you are a failure : Not at all Trouble concentrating on things : Not at all Moving or speaking slowly; restless or fidgety : Not at all Thoughts that you would be better off /hurting self : Not at all PHQ-9 Calculated Score : 0 Problems make work, home, or dealing with others : Not difficult at all EVERETT LAM LPN - 03/07/2016 16:27 CDT Source: [employer] Document Id: [id number] CDT!13 Miscellaneous - Dee Dee Perez R.N. - 02/28/2016 12:46 PM CDT Med Management Document Contains Addenda Addendum by JOHNY GRANADO on March 05, 2016 16:02:01 CDT 03/05 1st attempt-unable to leave ms-CW Addendum by JOHNY GRANADO on March 05, 2016 15:59:23 CDT LMOV to call and schedule for a follow up appointment. Schedulers please use orders in the patientsaccount for scheduling the follow up appointment Addendum by DIANNE WHITESIDE DNP, FNP on February 28, 2016 15:17:08 CDT From: DIANNE WHITESIDE DNP, FNP Sent: 02/28/2016 15:17:08 CDT Subject: RE:Med Management Approved Order:traZODone (traZODone 50 mg oral tablet) 2 tab(s) PO Bedtime Qty: 60 tab(s) Duration: 30 day(s) Refills: 0 Substitutions Allowed Route To Pharmacy - [facility] Signed by DIANNE WHITESIDE DNP, FNP 02/28/2016 15:17:03 From: DEE DEE PEREZ RN (DEANDRE Harris/Deepika Nurse (RN)) To: DIANNE WHITESIDE DNP, FNP; DEANDRE Harris Drawing Instructor; Sent: 02/28/2016 12:46:43 CDT Subject: Med Management On hold pending signature Order:traZODone (traZODone 50 mg oral tablet) 2 tab(s) PO Bedtime Qty: 60 tab(s) Duration: 30 day(s) Refills: 0 Substitutions Allowed Route To Pharmacy - [facility] COURTNEY 12/10/14. Does not have followup currently scheduled. Please advise. Scheduling-please contact patient to schedule followup. It has been over a year since last appointment. Last filled 01/25/16, #60. Source: [facility] POWERCHART Document Id: [id number] Electronically signed by Jennifer [facility] Control System Manager [id number] at 02/11/2017 12:20 PM CDT Miscellaneous - Ciara Broderick RAnneliese - 12/30/2015 4:09 PM CDT Med Management Document Contains Addenda Addendum by DIANNE WHITESIDE DNP, FNP on December 30, 2015 16:47:07 CDT From: DIANNE WHITESIDE DNP, FNP Sent: 12/30/2015 16:47:07 CDT Subject: RE:Med Management Approved Order:traZODone (traZODone 50 mg oral tablet) 2 tab(s) PO Bedtime Qty: 60 tab(s) Duration: 30 day(s) Refills: 1 Substitutions Allowed Route To Pharmacy - [facility] Signed by DIANNE WHITESIDE DNP, FNP 12/30/2015 16:47:05 From: CIARA BRODERICK RN ( Nurseline/Refill Nurse) To: DIANNE WHITESIDE DNP, AIR POLLUTION AUDITOR; Sent: 12/30/2015 16:09:37 CDT Subject: Med Management On hold pending signature Order:traZODone (traZODone 50 mg oral tablet) 2 tab(s) PO Bedtime Qty: 60 tab(s) Duration: 30 day(s) Refills: 1 Substitutions Allowed Route To Pharmacy - [facility] COURTNEY 12/10/2014 Patient has scheduled f/u on 01/11/2016 Source: [facility] POWERCHART Document Id: [id number] Electronically signed by Jennifer [facility] Control System Manager [id number] at 02/11/2017 12:20 PM CDT Miscellaneous - Josemanuel Briscoe - 10/28/2015 11:06 AM CST Trazodone Refill Document Contains Addenda Addendum by JOSEMANUEL BRISCOE on 28 October 2015 12:13:09 CROSSING TENDER noted Addendum by JENNA PITTMAN III, MD on 28 October 2015 12:12:39 CROSSING TENDER From: JENNA PITTMAN III, MD Sent: 10/28/2015 12:12:39 CROSSING TENDER Subject: RE:Trazodone Refill Approved Order:traZODone (traZODone 50 mg oral tablet) 2 tab(s) PO Bedtime Qty: 60 tab(s) Duration: 30 day(s) Refills: 1 Substitutions Allowed Route To Pharmacy - [facility] Signed by JENNA PITTMAN III, MD 10/28/2015 12:12:33 From: JOSEMANUEL BRISCOE To: JENNA PITTMAN III, MD; JOSEMANUEL BRISCOE; Sent: 10/28/2015 11:06:17 CROSSING TENDER Subject: Trazodone Refill On hold pending signature Order:traZODone (traZODone 50 mg oral tablet) 2 tab(s) PO Bedtime Qty: 60 tab(s) Duration: 30 day(s) Refills: 1 Substitutions Allowed Route To Pharmacy - [facility] -12/10/14 LF 09/30/15 Source: [facility] [employer]rickstreamCHART Document Id: [id number] Electronically signed by Conversion, [facility] Control System Manager [id number] at 02/11/2017 12:20 PM CDT Miscellaneous - Adelaide García RVicentaNVicenta - 08/29/2015 9:33 AM CST trazodone Document Contains Addenda Addendum by ADELAIDE GARCÍA RN on 30 August 2015 06:47:31 CROSSING TENDER noted Addendum by JENNA PITTMAN III, MD on 29 August 2015 15:57:07 CROSSING TENDER From: JENNA PITTMAN III, MD Sent: 08/29/2015 15:57:07 CROSSING TENDER Subject: RE:trazodone Approved Order:traZODone (traZODone 50 mg oral tablet) 2 tab(s) PO Bedtime Qty: 60 tab(s) Duration: 30 day(s) Refills: 1 Substitutions Allowed Route To Pharmacy - [facility] Signed by JENNA PITTMAN III, MD 08/29/2015 15:57:02 From: ADELAIDE GARCÍA RN To: JENNA PITTMAN III, MD; ADELAIDE GARCÍA RN; Sent: 08/29/2015 09:33:48 CROSSING TENDER Subject: trazodone On hold pending signature Order:traZODone (traZODone 50 mg oral tablet) 2 tab(s) PO Bedtime Qty: 60 tab(s) Duration: 30 day(s) Refills: 1 Substitutions Allowed Route To Pharmacy - [facility] 12/10/14 LF 08/01/15 #60 [facility] Document Id: [id number] Electronically signed by Conversion, [facility] Control System Manager [id number] at 02/11/2017 12:20 PM CDT Miscellaneous - Adelaide García RVicentaN. - 08/22/2015 1:01 PM CST citalopram Document Contains Addenda Addendum by ADELAIDE GARCÍA RN on 22 August 2015 15:02:03 CROSSING TENDER noted Addendum by JENNA PITTMAN III, MD on 22 August 2015 14:52:55 CROSSING TENDER From: JENNA PITTMAN III, MD Sent: 08/22/2015 14:52:54 CROSSING TENDER Subject: RE:citalopram Approved Order:citalopram (citalopram 20 mg oral tablet) 1 tab(s) PO Daily Please advise annual exam needed for further refills. Qty: 90 tab(s) Duration: 90 day(s) Refills: 0 Substitutions Allowed Route To Pharmacy - [facility] Signed by JENNA PITTMAN III, MD 08/22/2015 14:52:50 From: ADELAIDE GARCÍA RN To: JENNA PITTMAN III, MD; ADELAIDE GARCÍA RN; Sent: 08/22/2015 13:01:43 CROSSING TENDER Subject: citalopram On hold pending signature Order:citalopram (citalopram 20 mg oral tablet) 1 tab(s) PO Daily Please advise annual exam needed for further refills. Qty: 90 tab(s) Duration: 90 day(s) Refills: 0 Substitutions Allowed Route To Pharmacy - [facility] [place] 12/10/14, had GME 11/16/14 PHQ9 done 11/16/14, score of 1 Proposed fill to get patient to annual exam in November. LF 06/29/15 #30 Source: [facility] POWERCHART Document Id: [id number] Electronically signed by Conversion, [facility] Control System Manager [id number] at 02/11/2017 12:20 PM CDT Miscellaneous - Dianne Whiteside D.N.P., C.N.P. - 12/10/2014 2:26 PM CDT Ambulatory Patient Summary [address] [id number] Visit Information Name: CHRISTOPHER TY [facility] Number: [id number] Current Date: 12/10/2014 14:26:27 Physicians Attending Provider: DIANNE WHITESIDE DNP, FNP Primary Care Provider: JENNA PITTMAN III, MD CHRISTOPHER TY has been given the following list of follow-up instructions, medication list, and patient education materials: Follow-up Instructions Your Medications Here is a list of your medications. It is important to take your medications as directed. Use a pillbox or chart to help remind you to take your medications. Please let your doctor or nurse know if you have problems taking your medications. Medication/Strength How to Take Indications/Special Instructions/Comments/Notes for Patient Medication Changes/Routing albuterol (albuterol CFC free 90 mcg/inh inhalation aerosol) 2 puff(s), Inhalation, every 4 hours asneeded for Shortness of breath / Wheezing Asthma budesonide (budesonide 0.5 mg/2 mL inhalation suspension) 2 Milliliter, Nebulized inhalation, two times a day citalopram (citalopram 20 mg oral tablet) 1 Tablet(s), Oral, once a day fluticasone nasal (Flonase 50 mcg/inh nasal spray) 1 Deputy(s), Nostrils(Both), two times a day ibuprofen (ibuprofen 200 mg oral capsule) 200 mg, Oral, every 4 hours as needed for Other - per symptoms methylphenidate (methylphenidate 10 mg oral tablet) 1 Tablet(s), Oral, two times a day AM & Afternoon traZODone (traZODone 50 mg oral tablet) 100 mg, Oral, once a day (at bedtime) 2 tabs for a total of 100mg at bedtime Stop Taking the Following Medications: Medication list as of 12-10-14 14:26 Attention: If you have any medications at home that are not on this list, DO NOT take them until youcontact your provider for clarification. Give a copy of your medication list to your primary care provider. Update your medication list any time medications or doses are changed and carry your medication list at all times in case of emergency. Electronically Signed By: DIANNE WHITESIDE DNP, FNP Signed On:10-DEC-2014 14:26:13 Your Allergies & Intolerances Substance Reaction Symptoms Category Comments erythromycin stomach upset, Drug erythromycin vomiting Drug buPROPion Drug Your Problem List Problem Status Onset Comments Bronchopulmonary dysplasia of Active 1975 Sinusitis Active 09/19/2007 Pneumonia - organism, NOS Active 03/23/2008 Asthma NOS (493.90) Active 03/23/2008 Fibromyalgia Active 06/13/2008 Post-traumatic stress disorder (PTSD) Active 11/19/2012 10/22/13 diagnosed per [facility] Insomnia, Unspecified [facility] 11/19/2012 [facility] Vitamin D deficiency NOS Active 11/19/2012 10/22/13 per [facility] Cervical disc disease* Active 11/19/2012 10/22/13 per [facility] 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 Technically limited cardiac windows due to pectus deformity. 2. Status post 34 mm Amplatzer atrial septal defect closure device (06-20-2006). 3. No shunt at atrial level by color flow imaging. 4. Normal right ventricular size with borderline reduced systolic function. Estimated RV systolic pressure = 28 mmHg. 5.Normal left ventricular chamber size and systolic function, calculated EF 58%. 6. No pericardial effusion. 7. Compared to the report of 08/22/2012 no significant change has occurred.; 11/16/14 Per cardiology [facility] I think she should have an echocardiogram and clinical visit every two years for surveillance of her device as well as monitoring for the development of atrial arrhythmias. Your Upcoming Appointments Date Time Location Provider 12/21/2014 15:45 [facility] Re[facility] SrJoya Collins Attention: Contact your local Clinic if further appointment detail needed. Your Goals/Additional instructions: Source: [facility] POWERCHART Document Id: [id number] Miscellaneous - Dianne Whiteside D.N.P., C.N.P. - 12/10/2014 2:26 PM CDT Ambulatory Discharge Medication List [address] [id number] Visit Information Name: MELONYCHRISTOPHER CARRASQUILLO JOSE ELIAS [facility] Number: [id number] Visit Date: 12/10/2014 14:26:26 Attending Provider: DIANNE WHITESIDE DNP, AIR POLLUTION AUDITOR Primary Care Provider: JENNA PITTMAN III, MD CHRISTOPHER TY has been given the following list of medications: Your Medications It is important to take your medications as directed. Use a pill box or chart to help remind you to take your medications. Please let your doctor or nurse know if you have problems taking your medications. Medication/Strength How to Take Indications/Special Instructions/Comments/Notes for Patient Medication Changes/Routing albuterol (albuterol CFC free 90 mcg/inh inhalation aerosol) 2 puff(s), Inhalation, every 4 hours asneeded for Shortness of breath / Wheezing Asthma budesonide (budesonide 0.5 mg/2 mL inhalation suspension) 2 Milliliter, Nebulized inhalation, two times a day citalopram (citalopram 20 mg oral tablet) 1 Tablet(s), Oral, once a day fluticasone nasal (Flonase 50 mcg/inh nasal spray) 1 Deputy(s), Nostrils(Both), two times a day ibuprofen (ibuprofen 200 mg oral capsule) 200 mg, Oral, every 4 hours as needed for Other - per symptoms methylphenidate (methylphenidate 10 mg oral tablet) 1 Tablet(s), Oral, two times a day AM & Afternoon traZODone (traZODone 50 mg oral tablet) 100 mg, Oral, once a day (at bedtime) 2 tabs for a total of 100mg at bedtime Stop Taking the Following Medications: Medication list as of 12-10-14 14:26 Attention: If you have any medications at home that are not on this list, DO NOT take them until youcontact your provider for clarification. Give a copy of your medication list to your primary care provider. Update your medication list any time medications or doses are changed and carry your medication list at all times in case of emergency. Electronically Signed By: DIANNE WHITESIDE DNP, AIR POLLUTION AUDITOR Signed On:10-DEC-2014 14:26:13 Additional Information: Source: [facility] POWERCHART Document Id: [id number] Miscellaneous - Marybel Rashid L.PAnneliese - 12/10/2014 1:55 PM CDT Adult Consumer Studies Professor Intake/History Adult Consumer Studies Professor Intake/History Entered On: 12/10/2014 13:58 CDT Performed On: 12/10/2014 13:55 CDT by MARYBEL RASHID Intake Chief Complaint : Follow up Temperature Core : 36.8 DegC(Converted to: 98.2 DegF) Peripheral Pulse Rate : 68 /min Respiratory Rate : 16 /min Heart Rhythm : Regular Systolic Blood Pressure : 102 mmHg Diastolic Blood Pressure : 60 mmHg NIBP Mean : 74 mmHg BP Location : Left upper extremity Blood Pressure Cuff Size : Regular Height : 173 cm(Converted to: 5 ft 8 inch(es), 68 inch(es)) Actual Weight : 83.8 kg(Converted to: 184 lb 12 oz) Weight Source : Standing scale Dosing Weight Clinic : 83.8 kg Clinic BSA : 2.01 Body Mass Index : 28 kg/m2 MARYBEL RASHID - 12/10/2014 13:55 CDT General Info Information Given By : Patient Languages : Guatemalan Is Patient Female and 13-50 no hysterectomy : No MARYBEL RASHID - 12/10/2014 13:55 CDT Subjective Pain Symptoms : MARYBEL Zhu - 12/10/2014 13:55 CDT Dependent Habits Tobacco Use/Currently Using : No Exposure to Tobacco Smoke : Care provider denies smoking in home Smoking Status : Never smoker MARYBEL RASHID - 12/10/2014 13:55 CDT Tobacco Use Grid Last Use : never RASHID MARYBEL - 12/10/2014 13:55 CDT Alcohol Use : No RASHID MARYBEL 12/10/2014 13:55 CDT Caffeine Use Grid Caffeine Use : Current Type : Coffee Frequency : Occasionally RASHID MARYBEL - 12/10/2014 13:55 CDT Recreational Drug Use Grid Drug Use : None MARYBEL RASHID 12/10/2014 13:55 CDT ID Screen Drug Resistant Organism : No Travel Within Last 21 Days : No Contact with someone with Ebola : No MARYBEL RASHID 12/10/2014 13:55 CDT Source: [employer] Document Id: [id number] CDT!44 documented in this encounter Plan of Treatment Not on filedocumented as of this encounter Visit Diagnoses Not on filedocumented in this encounter
--- OUTSIDE RECORDS SUMMARY | 2022-08-29 12:16 | XMS_ITS | Encounter Summary ---
:1975 Author Organization [facility] Address [address] [place] [address] Care Team Providers Name Role Phone Carolyn Garland APRN, C.N.P. Primary Care Provider [phone] Reason for Referral Appointment Request (Routine) - Closed Specialty Diagnoses / Procedures Referred By Contact Refer red To Contact Radiology Referral ID Status Reason Start Date Expiration Date Visits Requ ested Visits Authorized Closed 12/02/2017 05/31/2018 1 Reason for Visit Appointment Request (Routine) - Closed Specialty Diagnoses / Procedures Referred By Contact Refer red To Contact Radiology Referral ID Status Reason Start Date Expiration Date Visits Requ ested Visits Authorized Closed 12/02/2017 05/31/2018 1 Encounter Details Date Type Department Care Team Description 12/10/2017 Hospital Encounter Department of Carolyn Garland Abdominal Radiology in Vishal Saez APRN, C.N .[facility] [address] [address] [place], [place] [phone] (Work) [phone] Social History Tobacco Use Types Packs/Day Years [...] Procedure Name Priority Date/Time Associated Comments Diagnosis US PELVIS RAD - Routine 12/10/2017 Tenderness Results for TRANSVAGINAL AND (most inpatients 11:59 AM CDT Abdominal this pr ocedure TRANSABDOMINAL and all Generalized are in the outpatients) results section. documented in this encounter Results US Pelvis Transvaginal and Transabdominal (12/10/2017 11:59 AM CDT) Anatomical Region Laterality Modality Pelvis N/A Ultrasound Specimen (Source) Anatomical Collection Method Collection Time Re ceived Time Location / / Volume Laterality 12/10/2017 12:08 PM CDT Impressions 12/10/2017 12:26 PM CDT IMPRESSION: 1. ??Hysterectomy. 2. ??Ovaries and cells are normal in brian earance without evidence of mass or torsion. 3. ??Small tubular shaped fluid collecti on measuring 2.2 cm right adnexa immediately adjacent to the ovary, witho ut appreciable internal complexity. Finding is nonspecific and could represe nt a small chronic postoperative seroma, lymphocele or paraovarian cyst. A mild h ydrosalpinx of be an additional consideration if the patient did not hav e her right fallopian tube removed at the time of hysterectomy. Clinical corre lation recommended. Narrative 12/10/2017 12:26 PM CDT EXAM: US PELVIS TRANSVAGINAL AND TRANSABDOMINAL COMPARISON: 05/22/2006 CT; pelvic ultrasou nd of 12/27/2005. FINDINGS: Uterus: Surgically absent. Right ovary: 1.7 x 1.8 x 2.4 cm. Normal size and appearance. Medially adj acent to the right ovary is a somewhat tubular shaped fluid-filled focus measur ing 2.2 x 2.1 x 2.2 cm. This demonstrates no appreciable septations o r internal complexity or solid components. No internal flow is noted on Doppler evaluation. Left ovary: 2.0 x 2.0 x 3.0 cm. Normal size and appearance. Fluid: No free fluid. Procedure Note Tavares Chapman M.D. - 12/10/2017Formatt ing of this note might be different from the original. EXAM: US PELVIS TRANSVAGINAL AND TRANSAB DOMINAL COMPARISON: 05/22/2006 CT; pelvic ultrasou nd of 12/27/2005. FINDINGS: Uterus: Surgically absent. Right ovary: 1.7 x 1.8 x 2.4 cm. Normal size and appearance. Medially adj acent to the right ovary is a somewhat tubular shaped fluid-filled focus measur ing 2.2 x 2.1 x 2.2 cm. This demonstrates no appreciable septations o r internal complexity or solid components. No internal flow is noted on Doppler evaluation. Left ovary: 2.0 x 2.0 x 3.0 cm. Normal size and appearance. Fluid: No free fluid. IMPRESSION: 1. Hysterectomy. 2. Ovaries and cells are normal in appea gretta without evidence of mass or torsion. 3. Small tubular shaped fluid collection measuring 2.2 cm right adnexa immediately adjacent to the ovary, witho ut appreciable internal complexity. Finding is nonspecific and could represe nt a small chronic postoperative seroma, lymphocele or paraovarian cyst. A mild h ydrosalpinx of be an additional consideration if the patient did not hav e her right fallopian tube removed at the time of hysterectomy. Clinical corre lation recommended. Carolyn Garland APRN, C.N.P. IMG US PROCEDURES documented in this encounter Visit Diagnoses Diagnosis Tenderness Abdominal Generalized documented in this encounter Care Teams Manager Welding Relationship Specialty Start Date End Date Carolyn Garland APRN, C.N.P. PCP - General 02/28/17 01/10/18 documented as of this encounter
--- OUTSIDE RECORDS SUMMARY | 2022-08-29 12:16 | XMS_ITS | Encounter Summary ---
:1975 Author Organization [facility] Address [address] [place] [address] Care Team Providers Name Role Phone Carolyn Garland APRN, C.N.P. Primary Care Provider [phone] Encounter Details Date Type Department Care Team Description 12/18/2017 Abstract DATA ABSTRACTION Provider, Historical Social History Tobacco Use Types Packs/Day Years [...] filedocumented in this encounter Care Teams Paper Stacker Relationship Specialty Start Date End Date Carolyn Garland APRN, C.N.P. PCP - General 02/28/17 01/10/18 documented as of this encounter
--- OUTSIDE RECORDS SUMMARY | 2022-08-29 12:16 | XMS_ITS | Encounter Summary ---
:1975 Author Organization [facility] Address [address] [place] [address] Care Team Providers Name Role Phone Carolyn Garland APRN, C.N.P. Primary Care Provider [phone] Encounter Details Date Type Department Care Team Description 11/20/[address] [facility], Roosevelt Pace M .D. [address] [address] Social History Tobacco Use Types Packs/Day Years [...] on filedocumented in this encounter Care Teams Dry Color Mixer Relationship Specialty Start Date End Date Carolyn Garland APRN, C.N.P. PCP - General 02/28/17 01/10/18 documented as of this encounter
--- OUTSIDE RECORDS SUMMARY | 2022-08-29 12:16 | XMS_ITS | Encounter Summary ---
:1975 Author Organization [facility] Address [address] [place] [address] Care Team Providers Name Role Phone Carolyn Garland APRN, C.N.P. Primary Care Provider [phone] Reason for Visit Reason Comments Communication Encounter Details Date Type Department Care Team Description 11/11/2017 Clinical Communication Department of Terrell Lara [facility], [place] BARRERA Saez, C.N. P. Clinic, [facility] [address] [place] [address] [facility] [address] [place], [place] [phone] (Work) [phone] Social History Tobacco Use Types Packs/Day Years [...] on filedocumented in this encounter Care Teams Fire Department Battalion Chief Relationship Specialty Start Date End Date Carolyn Garland APRN, C.N.P. PCP - General 02/28/17 01/10/18 documented as of this encounter
--- OUTSIDE RECORDS SUMMARY | 2022-08-29 12:16 | XMS_ITS | Encounter Summary ---
:1975 Author Organization [facility] Address [address] [place] [address] Care Team Providers Name Role Phone Carolyn Garland APRN, C.N.P. Primary Care Provider [phone] Reason for Visit Reason Onset Date Comments Med Refill 09/18/2017 Citalopram Encounter Details Date Type Department Care Team Description 09/18/2017 Refill Department of [facility] Carolyn Garland, Med Refill (Citalopram ) Medicine, [place] BARRERA, C.N.P. [facility], in [address] [facility] [place] [address] Social History Tobacco Use Types Packs/Day Years Used Date Smoking Tobacco: Never Sex Assigned at Date Recorded Female 02/11/2018 8:36 AM CDT documented as of this encounter Plan of Treatment Not on filedocumented as of this encounter Visit Diagnoses Not on filedocumented in this encounter Care Teams Exhauster Relationship Specialty Start Date End Date Carolyn Garland APRN, C.N.P. PCP - General 02/28/17 01/10/18 documented as of this encounter
--- OUTSIDE RECORDS SUMMARY | 2022-08-29 12:16 | XMS_ITS | Encounter Summary ---
:1975 Author Organization [facility] Address [address] [place] [address] Care Team Providers Name Role Phone Rubi Tavares APRN, C.N.P., D.N.P. 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 [place], in [address] [facility] [phone] [place] [address] [place], [place] (Work) [phone] Social History Tobacco Use Types Packs/Day Years [...] Name Priority Date/Time Associated Comments Diagnosis US CAROTID RAD - Routine 02/13/2018 9:01 Lizy Danlos Results fo r this BILATERAL (most inpatients AM CDT Syndrome procedure are in and all [place] the results outpatients) section. documented in this encounter Results US Carotid Bilateral (02/13/2018 9:01 AM CDT) Anatomical Region Laterality Modality Head and Neck, Ultrasound RST LOS Bilateral Ultras ound Specimen (Source) Anatomical Collection Method Collection Time Re ceived Time Location / / Volume Laterality 02/13/2018 9:48 AM CDT Impressions 02/13/2018 9:50 AM CDT IMPRESSION: ??Normal examination. Narrative 02/13/2018 9:50 AM CDT EXAM: US CAROTID BILATERAL COMPARISON: ??None. FINDINGS: RIGHT: ??Normal. LEFT: ??Normal. VELOCITIES (cm/sec) Right CCA *psv: ??90 cm/s Right ICA psv: 82 cm/s Right ICA edv: 29 cm/s Right ECA psv: 85 cm/s Right ICA/CCA: 0.9 Left CCA *psv: 85 cm/s Left ICA psv: 75 cm/s Left ICA edv: ??35 cm/s Left ECA psv: ??60 cm/s Left ICA/CCA: 0.9 ?? *mid/distal (non-diseased) Measurement of a carotid stenosis, if pr esent, is based on velocity parameters that compare the residual internal carot id luminal diameter with that of the normal distal ICA in accordance with Nor th [place] Symptomatic Carotid Endarterectomy Trial (NASCET). Procedure Note Len Hernandez M.D. - 02/13/2018Forma tting of this note might be different from the original. EXAM: US CAROTID BILATERAL COMPARISON: None. FINDINGS: RIGHT: Normal. LEFT: Normal. VELOCITIES (cm/sec) Right CCA *psv: 90 cm/s Right ICA psv: 82 cm/s Right ICA edv: 29 cm/s Right ECA psv: 85 cm/s Right ICA/CCA: 0.9 Left CCA *psv: 85 cm/s Left ICA psv: 75 cm/s Left ICA edv: 35 cm/s Left ECA psv: 60 cm/s Left ICA/CCA: 0.9 *mid/distal (non-diseased) Measurement of a carotid stenosis, if pr esent, is based on velocity parameters that compare the residual internal carot id luminal diameter with that of the normal distal ICA in accordance with Nor th [place] Symptomatic Carotid Endarterectomy Trial (NASCET). IMPRESSION: Normal examination. Dominique MERCER US PROCEDURES documented in this encounter Visit Diagnoses Diagnosis Lizy Danlos Syndrome [place] documented in this encounter Care Teams Cardiology Tech Relationship Specialty Start Date End Date Rubi Tavares APRN, C.N.P., PCP - General Family Medicine 04/21/19 D.N.P. [address] [place] [address] documented as of this encounter
--- OUTSIDE RECORDS SUMMARY | 2022-08-29 12:16 | XMS_ITS | Encounter Summary ---
:1975 Author Organization [facility] Address [address] [place] [address] Care Team Providers Name Role Phone Rubi Tavares APRN, C.N.P., D.N.P. Primary Care Provider Encounter Details Date Type Department Care Team Description 02/13/2018 Hospital Encounter Department of Lizy Mcgowans Syndrome; Radiology, [place] Dominique Tyson M.D. Chronic Obstructive Pulmonary Disease (H CC); Building, in [address] [facility] Defect Atrial Septal (HCC) [facility] [phone] [place] [address] [place], [place] (Work) [phone] Social History Tobacco Use [...] Name Priority Date/Time Associated Diagnosis Comme nts DX CHEST AP OR PA Routine 02/13/2018 7:36 AM Lizy Unger Res ults for this AND LATERAL 2 VIEWS CDT Syndrome procedure are in Chronic Obstructive the resu lts Pulmonary Disease section. (HCC) Defect Atrial Septal (HCC) documented in this encounter Results DX Chest AP or PA and Lateral 2 Views (02/13/2018 7:36 AM CDT) Anatomical Region Laterality Modality Chest, Thoracic RST LOS N/A Digital Radiogra phy Specimen (Source) Anatomical Collection Method Collection Time Re ceived Time Location / / Volume Laterality 02/13/2018 7:53 AM CDT Impressions 02/13/2018 7:55 AM CDT IMPRESSION: ??Comparison was made with chest x-ray ?dated 08/22/2012 ?? . Stable exam with biapical pleural-parenchymal s carring, pectus excavatum with silhouetting of the right heart border, atrial septal defect occluder. Chest otherwise unremarkable. ?? Narrative 02/13/2018 7:55 AM CDT EXAM: ??DX CHEST AP OR PA AND LATERAL 2 VIEWS Procedure Note Flip Whitehead M.D. - 02/13/2018Formattin g of this note might be different from the original. EXAM: DX CHEST AP OR PA AND LATERAL 2 EWS IMPRESSION: Comparison was made with [facility] x-ray dated 08/22/2012 . Stable exam with biapical pleural-parenchymal s carring, pectus excavatum with silhouetting of the right heart border, atrial septal defect occluder. Chest otherwise unremarkable. Dominique MERCER DIAGNOSTIC IMAGING TRAMAINE HANSEN documented in this encounter Visit Diagnoses Diagnosis Lizy Danlos Syndrome Chronic Obstructive Pulmonary Disease (H CC) Atrial Septal Defect Unspecified (HCC) documented in this encounter Care Teams Saddle And Side Wire Stitcher Relationship Specialty Start Date End Date Rubi Tavares APRN, C.N.P., PCP - General Family Medicine 04/21/19 D.N.P. [address] [place] [phone] documented as of this encounter
--- OUTSIDE RECORDS SUMMARY | 2022-08-29 12:16 | XMS_ITS | Encounter Summary ---
:[address] [facility] Address [address] [place] [address] Care Team Providers Name Role Phone Carolyn Garland APRN, C.N.P. Primary Care Provider [phone] Reason for Referral Appointment Request (Routine) - Closed Specialty Diagnoses / Procedures Referred By Contact Refer red To Contact Radiology Referral ID Status Reason Start Date Expiration Date Visits Requ ested Visits Authorized [id number] Closed 12/02/2017 05/31/2018 1 Encounter Details Date Type Department Care Team Description 11/28/2017 Orders Only Department of [facility] Carolyn Garland Abdominal Generalized (Primary Dx); Medicine, [place] Sae[place] APRN, C.N.P. Lizy Danlos Syndrome; Clinic, in [address] Chronic Obstructive Pulmonary Disease (H CC); [place] [address] Defect Atrial Septal (HCC) [address] [phone] [place], [place] (Work) [phone] Social History Tobacco Use Types Packs/Day Years Used Date Smoking Tobacco: Never Smokeless Tobacco: Never Alcohol Use Standard Drinks/Week Comments No 0 (1 standard drink = 0.6 oz pure alcoho l) Sex Assigned at Date Recorded Female 02/11/2018 8:36 AM CDT documented as of this encounter Plan of Treatment Not on filedocumented as of this encounter Results DX Chest AP or [...] 2 EWS IMPRESSION: Comparison was made with [facility] x-ray dated 08/22/2012 . Stable exam with biapical pleural-parenchymal s carring, pectus excavatum with silhouetting of the right heart border, atrial septal defect occluder. Chest otherwise unremarkable. Dominique Mcgowan M.D. IMG DIAGNOSTIC IMAGING PROCE TYRONE US Pelvis Transvaginal and Transabdominal (12/10/2017 11:59 [...] encounter Visit Diagnoses Diagnosis Tenderness Abdominal Generalized - Prima ry Lizy Danlos Syndrome Chronic Obstructive Pulmonary Disease (H CC) Atrial Septal Defect Unspecified (HCC) Tenderness Abdominal Generalized Lziy Danlos Syndrome Chronic Obstructive Pulmonary Disease (H CC) Atrial Septal Defect Unspecified (HCC) documented in this encounter Care Teams Broker Agricultural Produce Relationship Specialty Start Date End Date Carolyn Garland APRN, C.N.P. PCP - General 02/28/17 01/10/18 documented as of this encounter
--- OUTSIDE RECORDS SUMMARY | 2022-08-29 12:16 | XMS_ITS | Encounter Summary ---
:1975 Author Organization [facility] Address [address] [place] [address] Care Team Providers Name Role Phone Unavailable Primary Care Provider Unavailable Encounter Details Date Type Department Care Team Description 04/06/2016 Hospital Encounter [facility] Adriana Whiteside, BARRERA, C.N.P., D. N.P. [address] [place] [address] (Wo rk) Social History Tobacco Use Types Packs/Day Years Used Date Smoking Tobacco: Never Assessed Sex Assigned at Date Recorded Female 02/11/2018 8:36 AM CDT documented as of this encounter Last Filed Vital Signs Vital Sign Reading Time Taken Comments Blood Pressure 112/72 04/06/2016 4:17 PM CDT Pulse 92 04/06/2016 4:17 PM CDT Temperature - - Respiratory Rate - - Oxygen Saturation - - Inhaled Oxygen Concentration - - Weight 85.2 kg (187 lb 13.3 oz) 04/06/2016 4:17 PM CDT Height 173 cm (5' 8.11) 04/06/2016 4:17 PM CDT Body Mass Index 28.47 04/06/2016 4:17 PM CDT documented in this encounter Medications at Time of Discharge Medication Sig Dispensed Refills Start Date End Date albuterol (for_PROVENTIL Inhale 2 puffs. 0 201510/21/2017 HFA,VENTOLIN HFA) 90 mcg/actuation inhaler amphetamine-dextroampheta Take 10 mg by mouth. 0 11/21/2012 06/07/2018 mine (for_ADDERALL XR) 10 mg 24 hr capsule cyclobenzaprine Take 10 mg by mouth. 0 05/16/2012 06/26/2022 (for_FLEXERIL) 10 mg tablet fluticasone (for_FLONASE) Administer 2 sprays 0 0 05/11/2013 06/04/2018 50 mcg/actuation nasal into affected spray nostril(s). documented as of this encounter Progress Notes Adriana Whiteside D.N.P., C.N.P. - 04/06/2016 4:10 PM CDT [id number] CHIEF COMPLAINT/REASON FOR VISIT Medication renewal. HISTORY OF PRESENT ILLNESS Patient is a 40-year-old female who presents to clinic today for medication renewal. She indicates that overall she feels like she is doing quite well. She does have a complex medical history of bronchopulmonary dysplasia diagnosed as a . She does have a reactive airway disease component that has also been evaluated by [facility] in 2007 which did benefit from a bronchodilatory therapy. She is coming in today for medication renewal. She otherwise indicates that she is not having any otherfurther concerns or issues. PAST MEDICAL/SURGICAL HISTORY Reviewed under this tab in the EMR from today's date. FAMILY HISTORY Reviewed under this tab in the EMR from today's date. MEDICATIONS Reviewed under the depart tab in the EMR from today's date. ALLERGIES Reviewed under the depart tab in the EMR from today's date. PHYSICAL EXAMINATION GENERAL: Patient is alert, well-nourished 40-year-old female that otherwise appears to be in no acute distress. HEAD: Normocephalic, atraumatic. HEART: Sounds are a regular S1, S2. I do not appreciate murmurs, rubs, or gallops. LUNGS: Sounds bilaterally clear but diminished to bilateral lower lobes. DIAGNOSTICS Peak flows noted to be 260, 250 and 240 (should be 473 according to the patient's age and patient's height). Asthma control test scoring was completed and noted to be a total of 22. PHQ-9 score is noted be a total of a score of 0. IMPRESSION/REPORT/PLAN 1. Dysthymia and anxiety. 2. Asthma. 3. Attention deficit disorder. PLAN: 1. Dysthymia and anxiety: Presently at this time I did after further consultation with the patient as it pertains to her citalopram 20 mg by mouth daily. Her MONAE-7 score today was noted be a total of 9. In further discussion an increase in medication I would defer increasing due to black box warning of electrocardiovascular side effects. We will transition the patient off of the citalopram by weaningher to 10 mg by mouth daily for a 10-day duration of time in which she can then discontinue the medication. We will initiate Zoloft 25 mg by mouth daily for 14 days, then increase to 50 mg daily. We will follow up with the patient in which side effects of the medication were discussed. She feels very comfortable with this treatment plan. Trazodone 100 mg by mouth at bedtime was reinstated for the patient. 2. Asthma in the setting of bronchopulmonary dysplasia: Presently at this time I did reinstate her albuterol 90 mcg via inhalation, but given the fact that her insurance is not covering her Advair we may trial Breo. If in fact Breo is not covered I would then recommend initiating Spiriva and/or Symbicort. These findings were discussed at length with the patient. Again her albuterol 90 mcg inhalation was reinstate using 2 puffs every 4 hours as needed for shortness of breath. She was given a renewal of her Flonase nasal spray to instill 1 spray to both nostrils 2 times a day. All questions were addressed. 3. Attention deficit disorder. I did reinstate patient's methylphenidate 10 mg by mouth 2 times a day as needed in which she only uses this medication for meetings. Her last renewal was in 2013 for a quantity of 60 tablets, which I do not have any concerns renewing an additional 60 tablets today. Again this usage of this medication is infrequent. This prescription was provided to the patient. She overall felt very comfortable with this treatment plan. She otherwise denied having any further questions or concerns. Patient left clinic in otherwise no acute distress. Edward CampaNОлег/F.N.P/brayden Electronically Signed By: ADRIANA WHITESIDE DNP, FNP On: 04/10/2016 05:59 AM Source: [facility] [id number] Document Id: [id number] documented in this encounter Miscellaneous Notes Miscellaneous - Buzz Fernández C.MAaron - 04/06/2016 4:17 PM CDT Adult Clinical Research Technician Intake/History Adult Clinical Research Technician Intake/History Entered On: 04/06/2016 16:20 CDT Performed On: 04/06/2016 16:17 CDT by BUZZ FERNÁNDEZ Intake Chief Complaint : med check. not fasting. Temperature Core : 37.2 DegC(Converted to: 99.0 DegF) Peripheral Pulse Rate : 92 /min Systolic Blood Pressure : 112 mmHg Diastolic Blood Pressure : 72 mmHg NIBP Mean : 85 mmHg Height : 173 cm(Converted to: 5 ft 8 inch(es), 68 inch(es)) Actual Weight : 85.2 kg(Converted to: 187 lb 13 oz) Dosing Weight Clinic : 85.2 kg Clinic BSA : 2.02 Body Mass Index : 28.47 kg/m2 BUZZ FERNÁNDEZ S - 04/06/2016 16:17 CDT General Info Information Given By : Patient Preferred Communication Mode : Verbal Languages : Nepali Is Patient Female and 13-50 no hysterectomy : No BUZZ FERNÁNDEZ - 04/06/2016 16:17 CDT Subjective Pain Symptoms : No BUZZ FERNÁNDEZ - 04/06/2016 16:17 CDT Dependent Habits Exposure to Tobacco Smoke : Care provider denies smoking in home, Other: never Smoking Status : Never smoker Tobacco 2A : No Tobacco Use/Currently Using : No Tobacco Use/Last 30 Days : No Tobacco Use/Last 12 months : No BUZZ FERNÁNDEZ - 04/06/2016 16:17 CDT Caffeine Use Grid Caffeine Use : Current Type : Coffee Frequency : Occasionally BUZZ FERNÁNDEZ - 04/06/2016 16:17 CDT Recreational Drug Use Grid Drug Use : None BUZZ FERNÁNDEZ - 04/06/2016 16:17 CDT [facility] Document Id: [id number] CDT!35 Miscellaneous - Adriana Whiteside D.N.P., C.N.P. - 04/06/2016 3:00 PM CDT Quality Measures Quality Measures Entered On: 04/09/2016 10:06 CDT Performed On: 04/06/2016 15:00 CDT by ADRIANA WHITESIDE DNP, DEA Asthma Adult Asthma Control Test Score : 22 ED visits past yr for asthma w/o hospital stay : 0 Hospitalizations/Overnight Stays in Past yr for Asthma : 0 Asthma Action Plan Provided/Reviewed : Reviewed with the patient Asthma Action Plan Copy : Scanned into EMR ADRIANA WHITESIDE DNP, FNP - 04/09/2016 10:06 CDT Asthma Precipitating Factors Grid Outdoor Air : Yes ADRIANA WHITESIDE DNP, FNP - 04/09/2016 10:06 CDT [facility] Document Id: [id number] CDT!9 documented in this encounter Plan of Treatment Not on filedocumented as of this encounter Visit Diagnoses Not on filedocumented in this encounter
--- OUTSIDE RECORDS SUMMARY | 2022-08-29 12:16 | XMS_ITS | Encounter Summary ---
:1975 Author Organization [facility] Address [address] [place] [address] Care Team Providers Name Role Phone Carolyn Garland APRN, C.N.P. Primary Care Provider [phone] Encounter Details Date Type Department Care Team Description 08/07/2017 Orders Only Department of Family EldaPippa For Screening For Cardiovascular Disorders (Primary Dx); MedicineVishal A Screening Mammogram Average Risk Patient [address] [address] [place], [place] [phone] (Work) [phone] Social History Tobacco Use Types Packs/Day Years Used Date Smoking Tobacco: Never Sex Assigned at Date Recorded Female 02/11/2018 8:36 AM CDT documented as of this encounter Plan of Treatment Not on filedocumented as of this encounter Visit Diagnoses Diagnosis Encounter For Screening For Cardiovascul ar Disorders - Primary Screening Mammogram Average Risk Patient documented in this encounter Care Teams Retort Kiln Burner Relationship Specialty Start Date End Date Carolyn Garland APRN, C.N.P. PCP - General 02/28/17 01/10/18 documented as of this encounter
--- OUTSIDE RECORDS SUMMARY | 2022-08-29 12:16 | XMS_ITS | Encounter Summary ---
:1975 Author Organization [facility] Address [address] [place] [address] Care Team Providers Name Role Phone Unavailable Primary Care Provider Unavailable Encounter Details Date Type Department Care Team Description 11/30/2014 Hospital Encounter HX [facility] Adriana Pickens, BARRERA, C.N.P., D.N.P. [address] [place], [place] [phone] (Wo rk) Social History Tobacco Use Types [...] Concentration - - Weight - - Height 173 cm (5' 8.11) 11/30/2014 9:56 AM CDT Body Mass Index - - documented in this encounter Medications at Time [...] spray nostril(s). documented as of this encounter Plan of Treatment Not on filedocumented as of this encounter Visit Diagnoses Not on filedocumented in this encounter
--- OUTSIDE RECORDS SUMMARY | 2022-08-29 12:16 | XMS_ITS | Encounter Summary ---
:1975 Author Organization [facility] Address [address] [place] [address] Care Team Providers Name Role Phone Carolyn Garland APRN, C.N.P. Primary Care Provider [phone] Reason for Visit Reason Comments Abdominal Pain RLQ abd pain since yesterday afternoon. Nausea. Encounter Details Date Type Department Care Team Description 12/14/2017 Emergency [place] [facility] ToddAbe S, Pain Right Lower Department P.A.-C. Quadrant (Primary Dx) [address] [place] [phone] (Wo rk) Social History Tobacco Use Types Packs/Day Years Used Date Smoking Tobacco: Never Smokeless Tobacco: Never Alcohol Use Standard Drinks/Week Comments No 0 (1 standard drink = 0.6 oz pure alcoho l) Sex Assigned at Date Recorded Female 02/11/2018 8:36 AM CDT documented as of this encounter Last Filed Vital Signs Vital Sign Reading Time Taken Comments Blood Pressure 122/73 12/14/2017 5:15 AM CDT Pulse 64 12/14/2017 5:15 AM CDT Temperature 36.6 ??C (97.9 ??F) 12/14/2017 3:51 AM CDT Respiratory Rate 14 12/14/2017 5:15 AM CDT Oxygen Saturation 100% 12/14/2017 5:15 AM CDT Inhaled Oxygen Concentration - - Weight 90.7 kg (200 lb) 12/14/2017 3:52 AM CDT Height 174 cm (5' 8.5) 12/14/2017 3:52 AM CDT Body Mass Index 29.97 12/14/2017 3:52 AM CDT documented in this encounter Discharge Instructions AttachmentsThe following attachments cannot be sent through Care Everywhere. Abdominal Pain Adult [id number] (Yakut)documented in this encounter Medications at Time of [...] tablet (30 mg total) by mouth daily. fluticasone-vilanterol Inhale 1 puff 60 each 11 10/21/2017 10/27/2018 (BREO ELLIPTA) 200-25 daily. mcg/act inhaler HYDROcodone-acetaminophen Take 1 tablet by 0 05/1810/10/2018 (for_NORCO) 5-325 mg per mouth as needed. tablet traZODone (for_DESYREL) Take 2 tablets by 0 05/1304/30/2018 50 mg tablet mouth at bedtime. cyclobenzaprine Take 10 mg by 0 05/16/20122021 (for_FLEXERIL) 10 mg mouth. tablet fluticasone (for_FLONASE) Administer 2 sprays 0 0 05/11/2013 06/04/2018 50 mcg/actuation nasal into affected spray nostril(s). documented as of this encounter ED Notes Abe Todd P.A.-C. - 12/14/2017 4:44 AM CDT SUBJECTIVE CHIEF COMPLAINT/REASON FOR VISIT Abdominal Pain (RLQ abd pain since yesterday afternoon. Nausea. ) HISTORY OF PRESENT ILLNESS [age] no female with history of depression, rob danlos synrome, COPD presents with right lower quadrant abdominal pain which started yesterday afternoon when her 80 lb dog accidentally jumped onher right lower quadrant. 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 Some nausea but no vomiting. No diarrhea. No fevers or chills. Pain is worse with movement, better with rest. It is sharp pain with little bit of dull aching as well. She tried some Vicodin last night without any significant relief. REVIEW OF SYSTEMS Constitutional: Negative for activity change, chills and fever. HENT: Negative for ear pain and sore throat. Eyes: Negative for discharge and visual disturbance. Respiratory: Negative for cough and shortness of breath. Cardiovascular: Negative for chest pain and leg swelling. Gastrointestinal: Positive for nausea. Negative for abdominal pain, diarrhea and vomiting. Endocrine: Negative for polyuria. Genitourinary: Negative for dysuria, frequency, urgency, vaginal bleeding and vaginal discharge. Musculoskeletal: Negative for back pain and myalgias. Skin: Negative for lesions and rash. Neurological: Negative for dizziness, numbness and headaches. Psychiatric/Behavioral: Positive for sleep disturbance. Negative for depression. Pain woke her up from sleep OBJECTIVE Initial Vitals [12/14/17 0351] Temperature Pulse Rate Heart Rate Resp Rate Blood Pressure SpO2 36.6 ??C 77 -- 16 140/83 95 % Pain Score 9 PHYSICAL EXAMINATION Constitutional: She appears well-nourished. No distress. HENT: Mouth/Throat: Mucous membranes are moist. Eyes: Conjunctivae are normal. Cardiovascular: Normal rate and regular rhythm. Capillary refill: takes less than 3 seconds, Pulmonary/Chest: Effort normal. No respiratory distress. Abdominal: Soft. Bowel sounds are normal. There is tenderness. There is guarding. There is no rebound. Musculoskeletal: She exhibits no edema. Neurological: She is alert and oriented to person, place, and time. Skin: Skin is warm and dry. No rash noted. Psychiatric: She has a normal mood and affect. Her behavior is normal. ASSESSMENT/PLAN Impression and Plan IV access established, given saline and fentanyl IV with adequate control of the pain. Given zofran for nausea. Labs unremarkable. CT abdomen pelvis shows no acute abnormality. At this point emergent etiology such as appendicitis, ovarian torsion, diverticulitis or colitis are unlikely. Will have her continue with tylenol or ibuprofen at home for pain if needed. Follow up pcp this week if pain continues, return to ER if worsening or if she has other concerns. . I personally reviewed the lab result(s) and my interpretation is: Normal Radiology results: Personally reviewed the radiology image and Reviewed the radiology report. Radiology interpretation: Normal Abe Todd P.A.-C. 12/14/17 0515 documented in this encounter Plan of Treatment Not on filedocumented as of this encounter Procedures Procedure Name Priority Date/Time Associated Comments Diagnosis CT ABDOMEN PELVIS RAD - Semiurgent 12/14/2017 4:53 Res ults for this WITH IV CONTRAST (Fast; most ED AM CDT procedure are in patients; some the results inpatients) section. CBC WITH STAT 12/14/2017 4:32 Results for this DIFFERENTIAL, B AM CDT procedure ar e in the results section. BASIC METABOLIC STAT 12/14/2017 4:32 Results f or this PANEL, S/P AM CDT procedure are i n the results section. URINALYSIS WITH STAT 12/14/2017 4:28 Results f or this MICROSCOPIC IF AM CDT procedure are in INDICATED, U the results section. MICROSCOPIC MANUAL STAT 12/14/2017 4:28 Result s for this AM CDT procedure are i n the results section. BASIC METABOLIC Routine 12/14/2017 4:13 Results f or this PANEL (BMP), POCT, AM CDT procedure are in B the results section. documented in this encounter Results CT Abdomen Pelvis with IV Contrast (12/14/2017 4:53 AM CDT) Anatomical Region Laterality Modality Abdomen, Pelvis N/A Computed Tomography Specimen (Source) Anatomical Collection Method Collection Time Re ceived Time Location / / Volume Laterality 12/14/2017 10:11 AM CDT Impressions 12/14/2017 10:20 AM CDT IMPRESSION: 1. ??Normal-appearing appendix. 2. ??Fluid-filled tubular structure righ t adnexa, possibly hydrosalpinx. 3. ??Probable functional cyst left ovary . 4. ??Previous hysterectomy. 5. ??Tiny nonobstructive left renal calc ulus and probable cyst right kidney. Narrative 12/14/2017 10:20 AM CDT EXAM: CT ABDOMEN PELVIS WITH IV CONTRAST COMPARISON: 05/22/2006 FINDINGS: CHEST:Emphysematous change right upper l obe. ??Pectus excavatum deformity. The visible portions of the heart and aorta are unremarkable. LIVER: Normal attenuation. ??No intrahep atic ductal dilation or mass. Gallbladder is unremarkable. SPLEEN: Spleen is unremarkable, no splen omegaly. STOMACH/DUODENUM: Stomach and duodenum a re unremarkable. PANCREAS: Pancreas is unremarkable. ADRENAL GLANDS: Adrenal glands are unrem arkable. KIDNEYS: 7 mm low-attenuation lesion rig ht kidney, likely cyst. ??Probable tiny nonobstructive left renal calculus. ??Ki dneys otherwise unremarkable. COLON/SMALL BOWEL: Abdominal and pelvic bowel loops are unremarkable. PELVIS: Fluid-filled tubular structure r ight adnexa without adjacent inflammatory changes, may be related to hydrosalpinx. ??Probable functional cyst left ovary measures 1.4 cm. ??Previous h ysterectomy. ??Pelvic contents otherwise unremarkable. MESENTERY AND RETROPERITONEUM: ??No sign ificant abdominal or pelvic lymphadenopathy or ascites. ?? Aorta and mesenteric vessels are unremarkable. ABDOMINAL WALL: No evidence of hernia. ? ?Unremarkable. BONES: Probable hemangioma T11, unchange d. ??No pathologic osseous lesions. vRad: ??Findings concordant with roei cornelio vRad report. Procedure Note Darrell De Leon M.D. - 12/14/2017Formatti ng of this note might be different from the original. EXAM: CT ABDOMEN PELVIS WITH IV CONTRAST COMPARISON: 05/22/2006 FINDINGS: CHEST:Emphysematous change right upper l obe. Pectus excavatum deformity. The visible portions of the heart and aorta are unremarkable. LIVER: Normal attenuation. No intrahepat ic ductal dilation or mass. Gallbladder is unremarkable. SPLEEN: Spleen is unremarkable, no splen omegaly. STOMACH/DUODENUM: Stomach and duodenum a re unremarkable. PANCREAS: Pancreas is unremarkable. ADRENAL GLANDS: Adrenal glands are unrem arkable. KIDNEYS: 7 mm low-attenuation lesion rig ht kidney, likely cyst. Probable tiny nonobstructive left renal calculus. Kidn eys otherwise unremarkable. COLON/SMALL BOWEL: Abdominal and pelvic bowel loops are unremarkable. PELVIS: Fluid-filled tubular structure r ight adnexa without adjacent inflammatory changes, may be related to hydrosalpinx. Probable functional cyst left ovary measures 1.4 cm. Previous hys terectomy. Pelvic contents otherwise unremarkable. MESENTERY AND RETROPERITONEUM: No signif icant abdominal or pelvic lymphadenopathy or ascites. Aorta and me senteric vessels are unremarkable. ABDOMINAL WALL: No evidence of hernia. U nremarkable. BONES: Probable hemangioma T11, unchange d. No pathologic osseous lesions. vRad: Findings concordant with prelimina ry vRad report. IMPRESSION: 1. Normal-appearing appendix. 2. Fluid-filled tubular structure right adnexa, possibly hydrosalpinx. 3. Probable functional cyst left ovary. 4. Previous hysterectomy. 5. Tiny nonobstructive left renal calcul us and probable cyst right kidney. Abe Todd P.A.-C. IMG CT PROCEDURES (ABNORMAL) BMP (Basic Metabolic Panel) (12/14/2017 4:32 AM CDT) P athologist Signature Potassium, P 3.8 3.6 - 5.2 12/14/2017 [facility] mmol/L 4:46 AM [facility] Sodium, P 139 135 - 145 12/14/2017 [facility] mmol/L 4:46 AM [facility] Chloride, P 103 98 - 107 12/14/2017 [facility] mmol/L 4:46 AM [facility] Bicarbonate, P 25 22 - 29 12/14/2017 [facility] mmol/L 4:46 AM [facility] Anion Gap, P 11 7 - 15 12/14/2017 [facility] 4:46 AM [facility] BUN (Blood Urea 16 6 - 21 12/14/2017 [facility] Nitrogen), P mg/dL 4:46 AM [facility] Creatinine 0.72 0.59 - 12/14/2017 [facility] 1.04 mg/dL 4:46 AM [facility] eGFR-Black/Afri >90 >=60 12/14/2017 [facility] can [place] mL/min/BSA 4:46 AM [facility] Comment: ----ADDITIONAL INFORMATION---- Estimated GFR calculated using the 2009 CKD_EPI creatinine equation. eGFR Non-Black/ >90 >=60 mL/min/BSA 12/14/2017 4:46 AM [facility] [place] [facility] Comment: ----ADDITIONAL INFORMATION---- Estimated GFR calculated using the 2009 CKD_EPI creatinine equation. Calcium, Total, P 8.8 (L) 8.9 - 10.1 mg/dL 12/14/2017 4 :46 AM [facility] Glucose, P 94 70 - 140 mg/dL 12/14/2017 4:46 AM [facility] Specimen Anatomical Collection Method Collection Time Receive d Time (Source) Location / / Volume Laterality Blood (Blood, 12/14/2017 4:32 AM 12/15/19 18 4:32 Venous) CDT AM CDT Abe Todd P.A.-C. LAB BLOOD ADD-ON Performing Organization Address City/State/ZIP Code Phon e Number [facility]- [id number] [address] [place] [email or web address] LAB (ABNORMAL) CBC with Differential (12/14/2017 4:32 AM CDT) [facility] gist Method Time Signature Hemoglobin 14.2 11.6 - 12/14/2017 [facility] 15.0 g/dL 4:43 AM [facility] Hematocrit 41.2 35.5 - 12/14/2017 [facility] 44.9 % 4:43 AM [facility] Erythrocytes 4.58 3.92 - 12/14/2017 [facility] 5.13 4:43 AM [facility] x10(12)/L [facility] MCV 90.0 78.2 - 12/14/2017 [facility] 97.9 fL 4:43 AM [facility] RBC Distrib Width 12.0 (L) 12.2 - 12/14/2017 [facility] 16.1 % 4:43 AM [facility] Platelet Count 197 157 - 371 12/14/2017 [facility] x10(9)/L 4:43 AM [facility] [place] [email or web address] Leukocytes 8.8 3.4 - 9.6 12/14/2017 [facility] x10(9)/L 4:43 AM CDT [email or web address] Neutrophils 4.62 1.56 - 12/14/2017 [facility] 6.45 4:43 AM CDT [facility] x10(9)/L [email or web address] Lymphocytes 3.16 (H) 0.95 - 12/14/2017 [facility] 3.07 4:43 AM CDT [facility] x10(9)/L [email or web address] Monocytes 0.59 0.26 - 12/14/2017 [facility] 0.81 4:43 AM CDT [facility]ALTH x10(9)/L [email or web address] Eosinophils 0.41 0.03 - 12/14/2017 [facility] 0.48 4:43 AM CDT HEALTH x10(9)/L [email or web address] Basophils 0.04 0.01 - 12/14/2017 [facility] 0.08 4:43 AM CDT HEALTH x10(9)/L [facility] Specimen Anatomical Collection Method Collection Time Receive d Time (Source) Location / / Volume Laterality Blood (Blood, 12/14/2017 4:32 AM 12/15/19 18 4:32 Venous) CDT AM CDT Abe Todd P.A.-C. LAB BLOOD ADD-ON Performing Organization Address City/State/ZIP Code Phon e Number [facility]- [id number] [address] [place] [facility] (ABNORMAL) Microscopic Manual (12/14/2017 4:28 AM CDT) Analysis Performed At Patho logist Time Signature White Blood None Seen /hpf 12/14/2017 [facility] Cells 4:42 AM CDT [email or web address] Comment: ----REFERENCE VALUE---- Males: 0-3 Females: 0-10 Unknown: 0-10 Red Blood Cells 3-10 (A) 0 - 2 /hpf 12/14/2017 4:42 AM CDT [email or web address] Comment: Few Glomerular Erythrocytes Obs erved. 12/14/2017 04:42 Syed Mistry Dysmorphic Red Blood <=25 <=25 % 12/14/2017 4:42 AM CDT [email or web address] Comment: Few Glomerular erythrocytes obs erved. 12/14/2017 04:42 Syed Bischel Mucus Present /hpf 12/14/2017 4:42 AM CDT [facility] Squamous Cells 4-10 /hpf 12/14/2017 4:42 AM CDT [facility] Specimen Anatomical Collection Method Collection Time Receive d Time (Source) Location / / Volume Laterality Urine 12/14/2017 4:28 AM 8 4:32 CDT AM CDT Abe Todd P.A.-C. LAB URINE ORDERABLES Performing Organization Address City/State/ZIP Code Phon e Number [facility]- [id number] [address] [place] [email or web address] (ABNORMAL) Urinalysis with Microscopic if Indicated (clean catch) (12/14/2017 4:28 AM CDT) P athologist Signature Source Midstream 12/14/2017 [facility] 4:32 AM [facility] Clarity Clear Clear 12/14/2017 [facility] 4:32 AM T [facility] Color Yellow 12/14/2017 [facility] 4:32 AM T [facility] Comment: ----REFERENCE VALUE---- Colorless Yellow Lilliana Blood Moderate (A) Negative 12/14/2017 4:32 AM T [facility] Nitrite Negative Negative 12/14/2017 4:32 AM T [facility] Leukocyte Esterase Negative Negative 12/14/2017 4:32 AM CD T [facility] Protein 100 (A) mg/dL 12/14/2017 4:32 AM T [facility] Comment: ----REFERENCE VALUE---- Negative Trace Glucose Negative Negative mg/dL 12/14/2017 4:32 AM [facility] Ketones, QL(U) Negative Negative mg/dL 12/14/2017 4:32 AM [facility] Bilirubin Negative Negative 12/14/2017 4:32 AM [facility] pH 6.0 5.0 - 8.0 12/14/2017 4:32 AM [facility] Specific Justin 1.025 1.001 - 1.035 12/14/2017 4:32 AM [facility] Urobilinogen 0.2 0.2 - 1.0 mg/dL 12/14/2017 4:32 AM [email or web address] Specimen Anatomical Collection Method Collection Time Receive d Time (Source) Location / / Volume Laterality Urine (Urine, 12/14/2017 4:28 AM 12/15/19 18 4:28 Clean Catch) CDT AM CDT Abe Todd P.A.-C. LAB URINE ORDERABLES Performing Organization Address City/State/ZIP Code Phon e Number [facility]- [id number] [address] [place] [facility] (ABNORMAL) BMP (Basic Metabolic Panel), POCT (12/14/2017 4:13 AM CDT) athologist Signature BUN (Blood Urea 18 6 - 21 12/14/2017 [facility] Nitrogen), mg/dL 4:13 AM [facility] PO[facility], B [facility] Chloride, POCT, 101 98 - 107 12/14/2017 [facility] B mmol/L 4:13 AM [facility] Creatinine, 0.7 0.6 - 1.0 12/14/2017 [facility] POCT, B mg/dL 4:13 AM [facility] eGFR-Black/Afri >90 >=60 12/14/2017 [facility] can German, mL/min/BSA 7:48 AM [email or web address] Comment: ----ADDITIONAL INFORMATION---- Estimated GFR calculated using the 2009 CKD_EPI creatinine equation. eGFR Non-Black/ >90 >=60 mL/min/BSA 12/14/2017 7:48 AM [facility] [place], [email or web address] Comment: ----ADDITIONAL INFORMATION---- Estimated GFR calculated using the 2009 CKD_EPI creatinine equation. Glucose, POCT, B 92 70 - 140 mg/dL 12/14/2017 4:13 AM [facility] Potassium, POCT, B 3.6 3.6 - 5.2 mmol/L 12/14/2017 4:1 3 AM [email or web address] Sodium, POCT, B 140 135 - 145 mmol/L 12/14/2017 4:13 A [email or web address] Total CO2, POCT, B 27 22 - 29 mmol/L 12/14/2017 4:13 AM [email or web address] Anion Gap, POCT, B 16 (H) 7 - 15 12/14/2017 4:13 AM [email or web address] Specimen Anatomical Collection Method Collection Time Receive d Time (Source) Location / / Volume Laterality Blood 12/14/2017 4:13 AM 8 7:48 CDT AM CDT Generic Rals LAB POCT ORDERABLES - DEVICE Performing Organization Address City/State/[facility] Code Phon e Number [facility]- [address] [address] [facility] documented in this encounter Visit Diagnoses Diagnosis Pain Right Lower Quadrant - Primary documented in this encounter Administered Medications Inactive Administered Medications - up to 3 most recent administrations Medication Order MAR Action Action Date Dose Rate Site fentaNYL injection 75 mcg Given 12/14/2017 4:03 AM CDT 75 mcg (for_SUBLIMAZE) 75 mcg, intravenous, Every 15 min PRN, severe pain or score 7-10 of 10, Starting on 12/14/17 at 0350, For 3 doses iohexol 300 mg iodine/mL solution 135 mL (for_OMNIPAQUE) 135 mL, intravenous, Once in imaging, co ntrast, Starting on 12/14/17 at 0414, For 1 dose NaCl 0.9 % bolus 1,000 mL New Bag 12/14/2017 4:04 AM CDT 1,000 mL 1,000 mL, intravenous, Once, On 12/14/17 at 0351, For 1 dose ondansetron (PF) injection 4 mg (for_ZOF RAN) Given 12/14/2017 4:03 AM CDT 4 mg 4 mg, intravenous, Once, On 12/14/17 at 0351, For 1 dose sodium chloride injection 10 mL 10 mL, intravenous, As needed, line care, Starting on 12/14/17 at 0414 documented in this encounter Active and Recently Administered Medications Times are shown in CDT. Scheduled Medication Order 12/12/2017 12/13/2017 12/14/2017 NaCl 0.9 % bolus 1,000 mL (COMPLETED) 0404 (New Bag - Provider: Juan Bustillo)0441 (Stopped - Provider: Juan Bustillo) 1,000 mL, intravenous, Once, On 12/14/17 at 0351, For 1 dose NaCl 0.9 % bolus 84 mL 0415 (Due ) 84 mL, intravenous, Once, 12/14/17 at 0415, For 1 dose ondansetron (PF) injection 4 mg (for_ZOFRAN) (COMPLETED) 0403 (Given - Provider: Juan Bustillo) 4 mg, intravenous, Once, On 12/14/17 at 0351, For 1 dose PRN Medication Order 12/12/2017 12/13/2017 12/14/2017 fentaNYL injection 75 mcg (for_SUBLIMAZE) 0403 (Given - Provider: Juan Bustillo) 75 mcg, intravenous, Every 15 min PRN, s evere pain or score 7-10 of 10, Starting on 12/14/17 at 0350, For 3 doses iohexol 300 mg iodine/mL solution 135 mL (for_OMNIPAQUE) 135 mL, intravenous, Once in imaging, co ntrast, Starting on 12/14/17 at 0414, For 1 dose sodium chloride injection 10 mL 10 mL, intravenous, As needed, line care, Starting on Sat 8 at 0414 documented in this encounter Care Teams Safety Representative Relationship Specialty Start Date End Date Carolyn Garland APRN, C.N.P. PCP - General 02/28/17 01/10/18 documented as of this encounter
--- OUTSIDE RECORDS SUMMARY | 2022-08-29 12:16 | XMS_ITS | Encounter Summary ---
:1975 Author Organization [facility] Address [address] [place] [address] Care Team Providers Name Role Phone Carolyn Garland APRN, C.N.P. Primary Care Provider [phone] Reason for Visit Reason Comments Breast Pain LEFT side breast pain starte d a week ago, dull ache pain, tried ibuprofen and aleve did not help, feel s different than the right side, hurts more when taking a deep breath Encounter Details Date Type Department Care Team Description 12/05/2017 Office Visit Department of [facility] (Primary Medicine, Vishal Saez APRN, C.N.P. Dx) [facility], [place] [id number] [address] [place] [phone] [place] [address] ([place]) [place] [address] Social History Tobacco Use Types Packs/Day Years Used Date Smoking Tobacco: Never Smokeless Tobacco: Never Alcohol Use Standard Drinks/Week Comments No 0 (1 standard drink = 0.6 oz pure alcoho l) Sex Assigned at Date Recorded Female 02/11/2018 8:36 AM CDT documented as of this encounter Last Filed Vital Signs Vital Sign Reading Time Taken Comments Blood Pressure 128/83 12/05/2017 8:00 AM CDT Pulse 80 12/05/2017 8:00 AM CDT Temperature 36.9 ??C (98.4 ??F) 12/05/2017 8:00 AM CDT Respiratory Rate 16 12/05/2017 8:00 AM CDT Oxygen Saturation 96% 12/05/2017 8:00 AM CDT Inhaled Oxygen Concentration - - Weight 93.2 kg (205 lb 7.5 oz) 12/05/2017 8:00 AM CDT Height - - Body Mass Index 30.09 10/21/2017 4:13 PM EVP [employer] documented in this encounter Progress Notes Carolyn Garland APRN, C.N.P. - 12/05/2017 8:00 AM CDT SUBJECTIVE CHIEF COMPLAINT / REASON FOR VISIT Breast pain. HISTORY OF PRESENT ILLNESS Alcon is a very pleasant 42-year-old female who comes into the clinic today with concerns related toleft breast ???pain?? for approximately 1 week. She reports she completed a mammogram in November of 2016 at [facility] which was negative. She reports this was her 1st mammogram. She reports she hasfelt a ???dull achy?? pain related to her left upper breast. She denies any bilateral nipple discharge. She reports her left upper breast feels ???different?? than her right breast. She denies any known concerns related to a breast lump. She completed a hysterectomy. She reports she feels her left breast ???pain?? more with deep breathing. She reports she has used [id number] anti-inflammatori es without effectiveness related to her current symptoms. She is here today for further evaluation. She has no other concerns today. Brief Review of Systems: A brief review of systems was negative except for that mentioned in the history of present of illness. Current Outpatient Medications Medication Sig ??? albuterol (for_PROVENTIL HFA,VENTOLIN HFA) 90 mcg/actuation inhaler Inhale 2 puffs every 4 (four) hours as needed for wheezing. ??? amphetamine-dextroamphetamine (for_ADDERALL XR) 10 mg 24 hr capsule Take 10 mg by mouth. ??? citalopram (for_CeleXA) 20 mg tablet Take 1.5 tablets (30 mg total) by mouth daily. ??? cyclobenzaprine (for_FLEXERIL) 10 mg tablet Take 10 mg by mouth. ??? fluticasone (for_FLONASE) 50 mcg/actuation nasal spray Administer 2 sprays into affected nostril(s). ??? fluticasone-vilanterol (BREO ELLIPTA) 200-25 mcg/act inhaler Inhale 1 puff daily. ??? HYDROcodone-acetaminophen (for_NORCO) 5-325 mg per tablet Take 1 tablet by mouth. ??? ibuprofen (for_ADVIL,MOTRIN) 200 mg capsule Take 200 mg by mouth. ??? traZODone (for_DESYREL) 50 mg tablet Take 2 tablets by mouth at bedtime. Allergies Allergen Reactions ??? Bupropion GI intolerance ??? Erythromycin GI intolerance ??? Erythromycin Base GI intolerance ??? Mold Other (see comments) ??? Pollen Extracts Other (see comments) OBJECTIVE PHYSICAL EXAM BP 128/83 (BP Location: Left arm, Patient Position: Sitting, Cuff Size: Regular) Pulse 80 Temp 36.9 ??C (Temporal) Resp 16 Wt 93.2 kg SpO2 96% ? No BMI 30.09 kg/m?? Body massindex is 30.09 kg/m??. CONSTITUTIONAL: Alert and oriented. No acute distress. HEAD: Normocephalic/atraumatic. BREASTS: Soft breast tissue without predominant mass or nodularity. No nipple discharge. Nipples everted bilaterally. No axillary or supraclavicular adenopathy. Fibrous tissue to palpation. Left breastwith mild tenderness to palpation at 11-2/3 o'clock. No erythema. MUSCULOSKELETAL: No neurovascular compromise. No cyanosis, clubbing or edema. NEUROLOGICAL: Cranial nerves II-VII grossly intact and symmetric. She ambulates with a steady gait. PSYCHIATRIC: Cooperative. Affect appropriate. ASSESSMENT / PLAN #1 Pain Breast At this time, I am unclear as to the etiology related to her left breast pain. We discussed completion of mammogram and potential ultrasound for further evaluation. She reports she will complete a mammogram at an outside facility as needed. The use of heat and [id number] pain analgesics were discussed. She was instructed to contact the clinic with worsening or no improvement in symptoms. All questions were answered. She left in no acute distress. Carolyn Garland APRN, C.N.P. documented in this encounter Plan of Treatment Not on filedocumented as of this encounter Visit Diagnoses Diagnosis Pain Breast - Primary documented in this encounter Care Teams Promotions Officer Relationship Specialty Start Date End Date Carolyn Garland APRN, C.N.P. PCP - General 02/28/17 01/10/18 documented as of this encounter
--- OUTSIDE RECORDS SUMMARY | 2022-08-29 12:16 | XMS_ITS | Encounter Summary ---
:1975 Author Organization [facility] Address [address] [place] [address] Care Team Providers Name Role Phone Unavailable Primary Care Provider Unavailable Encounter Details Date Type Department Care Team Description 09/24/[address] [facility] ED Len Pittman III, M.D. [address] [place] [phone] (Wo rk) Social History Tobacco Use Types Packs/Day Years Used Date Smoking Tobacco: Never Sex Assigned at Date Recorded Female 02/11/2018 8:36 AM CDT documented as of this encounter Last Filed Vital Signs Vital Sign Reading Time Taken Comments Blood Pressure 136/85 09/24/2016 2:55 AM TUBE ROLLER Pulse 108 09/24/2016 2:55 AM TUBE ROLLER Temperature - - Respiratory Rate 18 09/24/2016 2:55 AM TUBE ROLLER Oxygen Saturation - - Inhaled Oxygen Concentration - - Weight - - Height 175 cm (5' 8.9) 09/24/2016 2:55 AM TUBE ROLLER Body Mass Index - - documented in this encounter Discharge Summaries Tru Suazo RVicentaN. 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 Marital Status Visit Id Visit Reason Body aches; Body aches/fever Specialty Enc Type Emergency Med Service Emergency Medicine Referred by Track Group [facility] ED Discharge 09/24/2016 3:55 AM Tracking Id [id number] Checkout 09/24/2016 3:55 AM Checkin 09/24/2016 2:45 AM Acuity 4 -Less Urgent Dispo Type * Discharged to Home or Self Care Arrival 09/24/2016 2:45 AM Reg Status Complete LOS 000 01:10 Address: [address] [place] [phone] Comment: PROVIDER INFORMATION Provider Role Provider Contact Time TRU SUAZO ED Nurse 09/24/16 02:50 LEN PITTMAN III, MD ED Provider 09/24/16 03:13 DIAGNOSIS 1:Infection Upper Respiratory Viral (URI); 2:Chills Without Fever; 3:Arthralgia; 4:Myalgia NOS Comment: PATIENT EDUCATION INFORMATION Instructions: Adult Self-Care for Colds and Flu Follow up: With: Address: When: DIANNE WHITESIDE [address] [place], [place] [id number] [facility] () Within As Needed Source: [facility] POWERCHART Document Id: [id number] ROLLER Tru Suazo R.N. - 09/24/2016 3:55 AM CST ED Discharge Instructions [address] [address] Name: CHRISTOPHER TY Date of : 1975 12:00 AM Visit Date: 09/24/2016 2:45 AM [facility] Number: [id number] Address: [address] [place] [phone] Primary Care Provider: DIANNE WHITESIDE DNP, [employer] RAISER OPERATOR IMPORTANT: [facility] in [place] would like to thank you for allowing us to assist you with your healthcare needs. The following includes patient education materials and informationregarding your injury/illness. Diagnosis: 1:Infection Upper Respiratory Viral (URI); 2:Chills Without Fever; 3:Arthralgia; 4:Myalgia NOS Follow-Up Instructions: With: Address: When: DIANNE WHITESIDE [address] [phone] Business (1) Within As Needed Your Upcoming Appointments: Date Time Location Provider No Appointments found Patient Education Materials: Adult Self-Care for Colds Colds are caused by viruses. They cant be cured with antibiotics. However, you can relieve symptoms and support your bodys efforts to heal itself. No matter which symptoms you have, be sure to drink plenty of fluids (water or clear soup); stop smoking and drinking alcohol; and get plenty of rest. Understand a Fever ?? Take your temperature several times a day. If your fever is 100.4??F for more than a day, call your doctor. ?? Relax, lie down. Go to bed if you want. Just get off your feet and rest. Also, drink plenty of fluids to avoid dehydration. ?? Take acetaminophen or a nonsteroidal anti-inflammatory agent (NSAID), such as ibuprofen. Treat a Troubled Nose Kindly ?? Breathe steam or heated humidified air to open blocked nasal passages. plane captain a hot shower or use a vaporizer. Be careful not to get burned by the steam. ?? Saline nasal sprays and decongestant tablets help open a stuffy nose. Antihistamines can also help, but they can cause side effects such as drowsiness and drying of the eyes, nose, and mouth. Soothe a Sore Throat and Cough ?? Gargle every 2 hours with 1/4 teaspoon of salt dissolved in 1/2 cup of warm water. Suck on throatlozenges and cough drops to moisten your throat. ?? Cough medicines are available but it is unclear how effective they actually are. ?? Take acetaminophen or an NSAID, such as ibuprofen. Ease Digestive Problems ?? Put fluid back into your body. Take frequent sips of clear liquids such as water or broth. Do notdrink beverages with a lot of sugar in them, such as juices and sodas. These can make diarrhea worse. Older children and adults can drink sports drinks. ?? As your appetite returns, you can resume your normal diet. Ask your doctor whether there are any foods you should avoid. When to Call Your Doctor When you first notice symptoms, ask your health care provider about antiviral medication. If taken soon after flu symptoms start, this can help you get well sooner. (Antibiotics should not be taken for colds or flu.) Also, call your doctor if you have any of the following symptoms or if you arent feeling better after 7 days: Shortness of breath Pain or pressure in the chest or abdomen Worsening symptoms, especially after a period of improvement Fever of 100.4??F (38.0??C) orhigher, or fever that doesnt go down with medication Sudden confusion Severe or continued vomiting Signs of dehydration, including extreme thirst, infrequent urination, dry mouth Spotted, red, or very sore throat ?? [id number] [facility], [address] [place] [address], [place] [address]. All rights reserved. This information is not intended as a substitute for professional medical care. Always follow your healthcare professional's instructions. Consider Using Patient Online Services Patient Online Services is a secure online and Mobile application that lets you: ?? View lab and test results ?? View portions of your medical record including clinical notes, immunizations and discharge summaries ?? Request an appointment or medication refill ?? Review your appointment schedule ?? Send secure messages to your care team Its easy to create an account if you dont have one. Go to [email or web address] and click on Create Your Account. Then, follow the directions to complete the online form. Youll be asked for your [facility] number which you can find at the top of this document. ED Tests and Procedures: Order Status Influenza A/B Antigen Completed Discharge Prescriptions & Home Medications: Medication/Strength Dose Route Frequency Indications/Special Instructions/Comments/Notes citalopram (citalopram 20 mg oral tablet) 30 mg Oral once a day *sertraline (Zoloft 25 mg oral tablet) See Instructions To be taken when weaned off citalopram. Take1 tab daily for 14 days, then increase to 50 mg daily. *tiotropium (Spiriva 18 mcg inhalation capsule) 18 mcg Inhalation once a day use two inhalations of one capsule for each dose / 1 cap (via 2 inhalations) fluticasone-vilanterol (Breo Ellipta 200 mcg-25 mcg/inh inhalation powder) 1 puff(s) Inhalation oncea day methylphenidate (methylphenidate 10 mg oral tablet) 10 mg Oral two times a day AM & Afternoon fluticasone nasal (Flonase 50 mcg/inh nasal spray) 1 spray(s) Nostrils(Both) two times a day traZODone (traZODone 50 mg oral tablet) 100 mg Oral once a day (at bedtime) albuterol (albuterol CFC free 90 mcg/inh inhalation aerosol) 2 puff(s) Inhalation every 4 hours as needed for Shortness of breath / Wheezing Asthma ibuprofen (ibuprofen 200 mg oral capsule) 200 mg Oral every 4 hours as needed for Other - per symptoms * You have let us know that you are not taking this medication as listed. Please talk with your primary care provider or the health care provider who prescribed the medication as soon as possible. Comment: Attention: If you have any medications at home not on this list, DO NOT take them until you contact your provider for clarification. Give a copy of your medication list to your primary care provider. Update your medication list any time medications or doses are changed and carry your medication list at all times in case of emergency. IMPORTANT: We examined and treated you today on an emergency basis only. This was not a substitute for, or an effort to provide, complete medical care. In most cases, you must let your doctor check youagain. Tell your doctor about any new or lasting problems. We cannot recognize and treat all injuries or illnesses in one Emergency Department visit. If you had special tests, such as EKG's or X- rays, we will review them again within 24 hours. We will call you if there are any new suggestions. Please follow the instructions above carefully. If you are being transferred to another facility your followup plan of care will be determined by the receiving facility. If you are a patient that is being discharged from the Emergency Department after receiving narcotics or other medications that may impair your judgment you may be a risk to yourself or others if you operate a motor vehicle. We recommend that you arrange a ride home with a responsible alliance party. MELONY Dillon JAIME AYN , or responsible alliance party have received this information and my questions have been answered. I have discussed any challenges I see with this plan with the nurse or physician. Patient Signature or Responsible Democrat/Relationship Date Time Provider Signature Date Time IMPORTANT: We examined and treated you today on an emergency basis only. This was not a substitute for, or an effort to provide, complete medical care. In most cases, you must let your doctor check youagain. Tell your doctor about any new or lasting problems. We cannot recognize and treat all injuries or illnesses in one Emergency Department visit. If you had special tests, such as EKG's or X- rays, we will review them again within 24 hours. We will call you if there are any new suggestions. Please follow the instructions above carefully. If you are being transferred to another facility your followup plan of care will be determined by the receiving facility. If you are a patient that is being discharged from the Emergency Department after receiving narcotics or other medications that may impair your judgment you may be a risk to yourself or others if you operate a motor vehicle. We recommend that you arrange a ride home with a responsible alliance party. I, CHRISTOPHER TY , or responsible alliance party have received this information and my questions have been answered. I have discussed any challenges I see with this plan with the nurse or physician. Patient Signature or Responsible Democrat/Relationship Date Time Provider Signature Date Time This document has images extracted. Please consider using [employer] for all your patient education needs. Source: [facility] POWERCHART Document Id: [id number] ROLLER documented in this encounter Medications at Time of Discharge Medication Sig Dispensed Refills Start Date End Date albuterol (for_PROVENTIL Inhale 2 puffs. 0 201510/21/2017 HFA,VENTOLIN HFA) 90 mcg/actuation inhaler amphetamine-dextroampheta Take 10 mg by mouth. 0 11/21/2012 06/07/2018 mine (for_ADDERALL XR) 10 mg 24 hr capsule citalopram (for_CeleXA) Take 1.5 tablets by 0 12/201509/18/2017 20 mg tablet mouth daily. cyclobenzaprine Take 10 mg by mouth. 0 05/16/2012 06/26/2022 (for_FLEXERIL) 10 mg tablet fluticasone (for_FLONASE) Administer 2 sprays 0 0 05/11/2013 06/04/2018 50 mcg/actuation nasal into affected spray nostril(s). documented as of this encounter ED Notes Tru Suazo R.NVicenta - 09/24/2016 3:53 AM CST ED Pain Assessment ED Pain Assessment Entered On: 09/24/2016 3:53 TUBE ROLLER Performed On: 09/24/2016 3:53 TUBE ROLLER by TRU SUAZO Pain Assessment Pain Symptoms : Yes TRU SUAZO - 09/24/2016 3:53 TUBE ROLLER Source: [employer] Document Id: [id number] TUBE ROLLER!3 ROLLER Tru Suazo RAnneliese - 09/24/2016 3:53 AM CST ED Disposition Summary ED Disposition Summary Entered On: 09/24/2016 3:53 TUBE ROLLER Performed On: 09/24/2016 3:53 TUBE ROLLER by TRU SUAZO ED Disposition Summary Present in Room During Exam/Procedure : Spouse Mode of Discharge : Ambulatory Transportation : Private vehicle Printed Discharge Instructions Given to Patient : Yes Patient Status at Discharge from ED : Unchanged TRU SUAZO - 09/24/2016 3:53 TUBE ROLLER Source: [employer] Document Id: [id number] TUBE ROLLER!7 ROLLER Len Pittman M.D. - 09/24/2016 3:03 AM CST Body aches Patient: CHRISTOPHER TY Age: 41 years Sex: Female : 1975 Author: LEN PITTMAN III, MD Attachments: None Associated Diagnosis: Infection Upper Respiratory Viral (URI); Chills Without Fever; Arthralgia; Myalgia NOS Basic Information Additional information: Chief Complaint from Nursing Triage Note : Chief Complaint Description 09/24/2016 2:50 TUBE ROLLER Chief Complaint Description Patient comes to the ED with complaints of ongoing sickness since Sep 15 and she now has been coughing has body aches for the past few days. . History of Present Illness The patient presents with body aches and chills. The onset was this started about five days ago witha scratchy throat and cold like symptoms. On day two it got a little worse. By day three she felt worse and developed a cough and chills. At this point she flet it would be a good idea to start some Bactrim that she had left over from a previous encounter. She took the Bactrim for two days before she realized it was not helping and on Saturday her cough became more productive (green). The course/duration of symptoms is constant and worsening. Location: generalized. The character of symptoms is achy.The degree of pain is moderate. There are exacerbating factors including movement, exertion and transfer. The relieving factor is rest. Risk factors consist of work environment. Prior episodes: occasional. Therapy today: see nurses notes and no over the counter medications. Associated symptoms: chills, headache, denies chest pain, denies abdominal pain, denies nausea, denies vomiting, denies shortness of breath, denies fever, denies dizziness and denies back pain. Review of Systems Constitutional symptoms: Negative except as documented in HPI. Skin symptoms: Negative except as documented in HPI. Eye symptoms: Negative except as documented in HPI. ENMT symptoms: Negative except as documented in HPI. Respiratory symptoms: Negative except as documented in HPI. Cardiovascular symptoms: Negative except as documented in HPI. Gastrointestinal symptoms: Negative except as documented in HPI. Genitourinary symptoms: Negative except as documented in HPI. Musculoskeletal symptoms: Negative except as documented in HPI. Health Status Allergies: Allergic Reactions (Selected) Severity Not Documented BuPROPion- Diarrehea. Erythromycin- Stomach upset, and vomiting.. Medications: (Selected) Prescriptions Prescribed Breo Ellipta 200 mcg-25 mcg/inh inhalation powder: 1 puff(s), Inhalation, Daily, 1 each, 11 Refill(s) Flonase 50 mcg/inh nasal spray: 1 spray(s), Nostrils(Both), 2xDay, 3 each, 3 Refill(s) Spiriva 18 mcg inhalation capsule: 18 mcg, 1 each, Inhalation, Daily, use two inhalations of one capsule for each dose, 90 cap(s), 3 Refill(s) Zoloft 25 mg oral tablet: See Instructions, To be taken when weaned off citalopram. Take 1 tab dailyfor 14 days, then increase to 50 mg daily., 180 tab(s), 3 Refill(s) albuterol CFC free 90 mcg/inh inhalation aerosol: 2 puff(s), Inhalation, q4hr, Asthma, PRN: Shortness of breath / Wheezing, 17 gm, 11 Refill(s) citalopram 20 mg oral tablet: 30 mg, 1.5 tab(s), PO, Daily, for 90 day(s), 135 tab(s), 3 Refill(s) methylphenidate 10 mg oral tablet: 10 mg, 1 tab(s), PO, 2xDay, AM & Afternoon, 60 tab(s), 0 Refill(s) traZODone 50 mg oral tablet: 100 mg, 2 tab(s), PO, Bedtime, for 90 day(s), 180 tab(s), 3 Refill(s). Immunizations: Up to date, she got her flu shot this year. Past Medical/ Family/ Social History Medical history: Negative. Surgical history: HC KNEE SCOPE,MED/LAT MENISECTOMY - 08/04/13 - LT on 08/04/2013 at 37 Years. SURGICAL PATHOLOGY EXAM - 02/2012 - excision of lipoma on chest wall on 02/15/2012 at 36 Years. HEART CATH, CLOSURE ATRIAL SEPTAL DEFECT - 06/20/06 - amplatzer septal occluder- serial #[id number] on 06/20/2006 at 30 Years. H/O: hysterectomy (SNOMED CT 346513239) on 01/14/2006 at 30 Years. Comments: 06/01/2011 16:09 - MATIAS MCDUFFIE LPN just uterus Dilation and curettage (SNOMED CT 05471739) in 1994 at 20 Years. Comments: 10/22/2013 10:18 - DOUG VAUGHN LPN hx from med rec [facility] PEGGER 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 on . Tubal ligation (SNOMED CT 900058416). Comments: 10/22/2013 10:17 - DOUG VAUGHN LPN info from past med rec from [facility]. Family history: Father History is unknown. . Social history: Alcohol use: Denies, Tobacco use: Denies, Drug use: Denies, Occupation: Employed, Family/social situation: . 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 Physical Examination Vital Signs: Vital Signs 09/24/2016 2:55 TUBE ROLLER Temperature Core 37.7 DegC Peripheral Pulse Rate 108 /min HI Respiratory Rate 18 /min SpO2 96 % Systolic Blood Pressure 136 mmHg Diastolic Blood Pressure 85 mmHg Mean Arterial Pressure 102 mmHg BP Location Left upper , Measurements 09/24/2016 2:55 TUBE ROLLER Height 175 cm Height Source Stated Dosing Weight 91.00 kg NA Estimated Weight 91 kg . General: Alert and appears uncomfortable. Skin: Warm, pink and moist. Head: Normocephalic and atraumatic. Neck: Supple, trachea midline and no tenderness. Eye: Pupils are equal, round and reactive to light, extraocular movements are intact, normal conjunctiva and vision grossly normal. Ears, nose, mouth and throat: Tympanic membranes clear, oral mucosa moist and no pharyngeal erythemaor exudate. Cardiovascular: No murmur, Normal peripheral perfusion, No edema and Tachycardia. Respiratory: Lungs are clear to auscultation, respirations are non-labored, breath sounds are equal and Symmetrical chest wall expansion. Medical Decision Making Differential Diagnosis:Viral syndrome, fibromyositis not arthritis, not fibromyalgia, not anxiety, not back pain, not rhabdomyolysis, not alcohol withdrawal, not drug withdrawal, not arm pain. Documents reviewed:Prior records. OrdersLaunch Orders Laboratory: Influenza A/B Antigen (Order Processing): Stat, 09/24/2016 3:08 TUBE ROLLER, Once, Nasal, Launch Orders Pharmacy: ibuprofen (Order Processing): 600 mg, PO, Once. Results review:Lab results : Lab View 09/24/2016 3:20 TUBE ROLLER Influenza A and B AG Review , Negative for Influenzae A protein antigen. Negative for Influenzae B protein antigen. Reference: Negative for Influenzae A and Influenzae B protein antigens.. Impression and Plan Diagnosis Infection Upper Respiratory Viral (URI) (Discharge, Medical) Chills Without Fever (Discharge, Medical) Arthralgia (Discharge, Medical) Myalgia NOS (Discharge, Medical) Plan Condition: Unchanged. Disposition: Medically cleared, Discharged: to home. Patient was given the following educational materials: Adult Self-Care for Colds and Flu. Follow up with: DIANNE Esparza As Needed. Counseled: Patient, Family, Regarding diagnosis, Regarding diagnostic results, Regarding treatment plan, Patient indicated understanding of instructions. Orders: Launch Orders Patient Care: Discharge ED Patient (Order Processing): 09/24/2016 3:49 TUBE ROLLER, Once. Electronically Signed By: LEN PITTMAN III, MD On: 09/24/2016 03:54 AM Modified by and Electronically Signed by: LEN PITTMAN III, MD On: 09/24/2016 03:54 AM Source: [facility] POWERCHART Document Id: [id number]} ROLLER Tru Suazo R.N. - 09/24/2016 2:55 AM CST ED Primary Assessment Document Has Been Updated ED Primary Assessment Entered On: 09/24/2016 2:58 TUBE ROLLER Performed On: 09/24/2016 2:55 TUBE ROLLER by TRU SUAZO Reason For Visit (As Of: 09/24/2016 02:58:42 TUBE ROLLER) Problems(Active) Asthma NOS (493.90) (ICD-9-CM :493.90 ) Name of Problem: Asthma NOS (493.90) ; Onset Date: 03/23/2008 ; Recorder: DOUG VAUGHN LPN; Confirmation: Confirmed ; Classification: Nursing ; Code: 493.90 ; Contributor System: [employer] ; Last Updated: 10/22/2013 9:47 TUBE ROLLER ; Life Cycle Date: 10/22/2013 ; Life Cycle Status: Active ; Responsible Provider: DOUG VAUGHN LPN; Vocabulary: ICD-9-CM Bronchopulmonary dysplasia of (ICD-9-CM :770.7 ) Name of Problem: Bronchopulmonary dysplasiaof ; Onset Date: 1974 ; Recorder: LEN PITTMAN III, MD; Confirmation: Confirmed ; Classification: UPDATE NEEDED ; Code: 770.7 ; Contributor System: [employer] ; Last Updated: 11/14/20154:14 TUBE ROLLER ; Life Cycle Date: 06/01/2011 ; Life Cycle Status: Active ; Responsible Provider: LEN PITTMAN III, MD; Vocabulary: ICD-9-CM Cervical disc disease* (ICD-9-CM :722.4 ) Name of Problem: Cervical disc disease* ; Onset Date: 11/19/2012 ; Recorder: DOUG VAUGHN LPN; Confirmation: Confirmed ; Classification: Nursing ; Code: 722.4 ; Contributor System: [employer] ; Last Updated: 10/22/2013 10:25 TUBE ROLLER ; Life Cycle Date: 10/22/2013 ; Life Cycle Status: Active ; Responsible Provider: DOUG VAUGHN LPN; Vocabulary: ICD-9-CM ; Comments: 10/22/2013 10:25 - DOUG VAUGHN LPN per [facility] Med Rec Chronic Respiratory Disease Arising in the Period (ICD-9-CM :770.7 ) Name of Problem: Chronic Respiratory Disease Arising in the Period ; Onset Date: 04/21/2013 ; Confirmation: Confirmed ; Classification: UPDATE NEEDED ; Code: 770.7 ; Contributor System: [facility]_HX_PR_UPLOAD ; Last Updated: 12/12/2013 14:46 CDT ; Life Cycle Status: Active ; Vocabulary: ICD-9-CM ; Comments: - Chronic respiratory disease arising in the period Defect Atrial Septal (ASD) NOS (ICD-9-CM :745.5 ) Name of Problem: Defect Atrial Septal (ASD) NOS ; Onset Date: 2005 ; Recorder: TELMA JACOB NP; Confirmation: Confirmed ; Classification: Medical ; Code: 745.5 ; Contributor System: [employer] ; Last Updated: 07/06/2014 12:03 CDT ; Life Cycle Date: 07/06/2014 ; Life Cycle Status: Active ; Responsible Provider: TELMA JACOB NP; Vocabulary: ICD-9-CM ; Comments: 11/16/2014 19:26 - DIANNE WHITESIDE DNP, DEA 07/15/2014 Final Impressions 1. Technically limited cardiac windows due to pectus deformity. 2. Status post 34 mm Amplatzer atrial septal defect closure device (06-20-2006). 3. No shunt at atrial level by color flow imaging. 4. Normal right ventricular size with borderline reduced systolic function. Estimated RV systolic pressure = 28 mmHg. 5. Normal left ventricular chamber size and systolic function, calculated EF 58%. 6. No pericardial effusion. 7. Compared to the report of 08/22/2012 no significant change has occurred. 11/16/201419:28 - DIANNE WHITEISDE DNP, DEA Per cardiology [facility] I think she should have an echocardiogram and clinical visit every two years for surveillance of her device as well as monitoring forthe development of atrial arrhythmias. Depression Major Recurrent Mild (ICD-9-CM :296.31 ) Name of Problem: Depression Major Recurrent Mild; Onset Date: 1998 ; Recorder: LEN PITTMAN III, MD; Confirmation: Confirmed ; Classification: Medical ; Code: 296.31 ; Contributor System: [employer] ; Last Updated: 12/02/2013 16:06 CDT ; Life Cycle Date: 12/02/2013 ; Life Cycle Status: Active ; Vocabulary: ICD-9-CM Disorder Attention Deficit Inattentive (ICD-9-CM :314.00 ) Name of Problem: Disorder Attention Deficit Inattentive ; Recorder: LEN PITTMAN III, MD; Confirmation: Confirmed ; Classification: Medical ; Code: 314.00 ; Contributor System: [employer] ; Last Updated: 12/02/2013 16:07 CDT ; Life Cycle Date: 12/02/2013 ; Life Cycle Status: Active ; Vocabulary: ICD-9-CM 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 ; Onset Date: 2011 ; Recorder: TELMA JACOB NP; Confirmation: Confirmed ; Classification: Medical ; Code: 756.83 ; Contributor System: Power[employer] ; Last Updated: 07/06/2014 12:01 CDT ; Life Cycle Date: 07/06/2014 ; Life Cycle Status: Active ; Vocabulary: ICD-9-CM Fibromyalgia (ICD-9-CM :729.1 ) Name of Problem: Fibromyalgia ; Onset Date: 06/13/2008 ; Recorder: DOUG VAUGHN LPN; Confirmation: Confirmed ; Classification: Nursing ; Code: 729.1 ; Contributor System: PowerChart ; Last Updated: 11/14/2015 4:14 TUBE ROLLER ; Life Cycle Date: 10/22/2013 ; Life Cycle Status: Active ; Responsible Provider: DOUG VAUGHN LPN; Vocabulary: ICD-9-CM Generalized Anxiety Disorder (ICD-9-CM :300.02 ) Name of Problem: Generalized Anxiety Disorder ; Onset Date: 10/08/2007 ; Confirmation: Confirmed ; Classification: Medical ; Code: 300.02 ; Contributor System: [facility]_PR_UPLOAD ; Last Updated: 12/12/2013 14:46 CDT ; Life Cycle Status: Active ; Vocabulary: ICD-9-CM ; Comments: - Generalized anxiety disorder Insomnia, Unspecified (ICD-9-CM :780.52 ) Name of Problem: Insomnia, Unspecified ; Onset Date: 11/19/2012 ; Recorder: DOUG VAUGHN LPN; Confirmation: Confirmed ; Classification: Nursing ; Code: 780.52 ; Contributor System: PowerChart ; Last Updated: 10/22/2013 10:22 TUBE ROLLER ; Life Cycle Date: 10/22/2013 ; Life Cycle Status: Active ; Responsible Provider: DOUG VAUGHN LPN; Vocabulary: ICD-9-CM ; Comments: 10/22/2013 10:22 - DOUG VAUGHN LPN per [facility] Major Depressive Disorder, Recurrent Episode, Severe Degree, without Mention of Psychotic Behavior (ICD-9-CM :296.33 ) Name of Problem: Major Depressive Disorder, Recurrent Episode, Severe Degree, without Mention of Psychotic Behavior ; Onset Date: 10/22/2007 ; Confirmation: Confirmed ; Classification: Medical ; Code: 296.33 ; Contributor System: [employer]T-Quad 22_UPLOAD ; Last Updated: 12/12/2013 14:46 CDT; Life Cycle Status: Active ; Vocabulary: ICD-9-CM ; Comments: - Major depressive disorder, recurrent episode, severe, without mention of psychotic behavior Pneumonia - organism, NOS (ICD-9-CM :486 ) Name of Problem: Pneumonia - organism, NOS ; Onset Date: 03/23/2008 ; Recorder: DOUG VAUGHN LPN; Confirmation: Confirmed ; Classification: Nursing ; Code: 486 ; Contributor System: [employer] ; Last Updated: 10/22/2013 9:47 TUBE ROLLER ; Life Cycle Date: 10/22/2013 ; Life Cycle Status: Active ; Responsible Provider: DOUG VAUGHN LPN; Vocabulary: ICD-9-CM Post-traumatic stress disorder (PTSD) (ICD-9-CM :309.81 ) Name of Problem: Post- traumatic stress disorder (PTSD) ; Onset Date: 11/19/2012 ; Recorder: DOUG VAUGHN LPN; Confirmation: Confirmed ; Classification: Nursing ; Code: 309.81 ; Contributor System: [employer] ; Last Updated: 10/22/2013 10:21CST ; Life Cycle Date: 10/22/2013 ; Life Cycle Status: Active ; Responsible Provider: CIPRIANO VAUGHN LPN; Vocabulary: ICD-9-CM ; Comments: 10/22/2013 10:21 - DOUG VAUGHN LPN diagnosed per [facility] Rosacea (ICD-9-CM :695.3 ) Name of Problem: Rosacea ; Onset Date: 05/05/2012 ; Confirmation: Confirmed ; Classification: Medical ; Code: 695.3 ; Contributor System: [employer]T-Quad 22_UPLOAD ; Last Updated: 12/12/2013 14:46 CDT ; Life Cycle Status: Active ; Vocabulary: ICD-9-CM ; Comments: - Rosacea Sinusitis (ICD-9-CM :473.9 ) Name of Problem: Sinusitis ; Onset Date: 09/19/2007 ; Recorder: DOUG VAUGHN LPN; Confirmation: Confirmed ; Classification: Nursing ; Code: 473.9 ; Contributor System: [employer] ; Last Updated: 10/22/2013 9:46 TUBE ROLLER ; Life Cycle Date: 10/22/2013 ; Life Cycle Status: Active ; Responsible Provider: DOUG VAUGHN LPN; Vocabulary: ICD-9-CM Vitamin D deficiency NOS (ICD-9-CM :268.9 ) Name of Problem: Vitamin D deficiency NOS ; Onset Date: 11/19/2012 ; Recorder: DOUG VAUGHN LPN; Confirmation: Confirmed ; Classification: Nursing ; Code: 268.9 ; Contributor System: [employer] ; Last Updated: 10/22/2013 10:23 TUBE ROLLER ; Life Cycle Date: 10/22 ; Life Cycle Status: Active ; Responsible Provider: DOUG VAUGHN LPN; Vocabulary: ICD-9-CM; Comments: 10/22/2013 10:23 - DOUG VAUGHN LPN per [facility] Rec Diagnoses(Active) Body aches Date: 09/24/2016 ; Diagnosis Type: Reason For Visit ; Confirmation: Complaint of ; Clinical Dx: Body aches ; Classification: Medical ; Clinical Service: Emergency medicine ; Code: PNED ; Probability: 0 ; Diagnosis Code: [id number] Triage Chief Complaint Description : see triage assessment Mode of Arrival ED : Private vehicle Track : Medical Languages : Filipino Vital Signs Assessed : Yes Treatments Prior to Arrival : None Is Patient Female and 13-50 no hysterectomy : No TRU SUAZO - 09/24/2016 2:55 TUBE ROLLER Vital Signs Temperature Core : 37.7 DegC(Converted to: 99.9 DegF) Peripheral Pulse Rate : 108 /min (HI) Respiratory Rate : 18 /min Systolic Blood Pressure : 136 mmHg Diastolic Blood Pressure : 85 mmHg NIBP Mean : 102 mmHg BP Location : Left upper extremity SpO2 : 96 % Oxygen Therapy : Room air Height : 175 cm(Converted to: 5 ft 9 inch(es)) Height Source : Stated Estimated Weight : 91 kg Estimated Weight Conversion to Pounds : 200.2 lb TRU SUAZO 09/24/2016 2:55 TUBE ROLLER Pain Assessment Pain Symptoms : Yes TRU SUAZO 09/24/2016 2:55 TUBE ROLLER Respiratory Airway : Patent Respirations : Unlabored Respiratory Pattern : Regular BEBETO SUAZO09/24/2016 2:55 TUBE ROLLER Cardiovascular Heart Rhythm : Regular Skin Color : Normal for ethnicity Skin Description : Dry Skin Temperature : Warm TIFFANIMASOODTRU 09/24/2016 2:55 TUBE ROLLER Neurological Last Well Time Known : Not applicable Level of Consciousness : Alert Orientation : Oriented x 3 Characteristics of Speech : Appropriate for age TRU SUAZO 09/24/2016 2:55 TUBE ROLLER ED Psychosocial Affect/Behavior : Calm, Cooperative Domestic Abuse Concerns : None Behavioral Health Screen/Safety Assmt : No TRU SUAZO 09/24/2016 2:55 TUBE ROLLER Gastrointestinal Nutrition ED : Adequate TRU SUAZO 09/24/2016 2:55 TUBE ROLLER Musculoskeletal Fall Prevention Education Provided : TRU ALFREDO 09/24/2016 2:55 TUBE ROLLER Social Habits Exposure to Tobacco Smoke : Care provider denies smoking in home, Other: never Smoking Status : Never smoker Tobacco 2A : No Tobacco Use/Currently Using : No Tobacco Use/Last 30 Days : No Tobacco Use/Last 12 months : No TRU SUAZO 09/24/2016 2:55 TUBE ROLLER Alcohol Use Grid Alcohol Use : No TRU SUAZO 09/24/2016 2:55 TUBE ROLLER Recreational Drug Use Grid Drug Use : None TRU SUAZO 09/24/2016 2:55 TUBE ROLLER Source: [facility] POWERCHART Document Id: [id number] TUBE ROLLER!60 ROLLER Tru Suazo R.N. - 09/24/2016 2:50 AM CST ED Triage Assessment Document Has Been Updated ED Triage Assessment Entered On: 09/24/2016 2:54 TUBE ROLLER Performed On: 09/24/2016 2:50 TUBE ROLLER by TRU SUAZO Reason For Visit (As Of: 09/24/2016 02:54:23 TUBE ROLLER) Problems(Active) Asthma NOS (493.90) (ICD-9-CM :493.90 ) Name of Problem: Asthma NOS (493.90) ; Onset Date: 03/23/2008 ; Recorder: DOUG VAUGHN LPN; Confirmation: Confirmed ; Classification: Nursing ; Code: 493.90 ; Contributor System: [employer] ; Last Updated: 10/22/2013 9:47 TUBE ROLLER ; Life Cycle Date: 10/22/2013 ; Life Cycle Status: Active ; Responsible Provider: DOUG VAUGHN LPN; Vocabulary: ICD-9-CM Bronchopulmonary dysplasia of (ICD-9-CM :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.7 ) Name of Problem: Bronchopulmonary dysplasiaof ; Onset Date: 1975 ; Recorder: LEN PITTMAN III, MD; Confirmation: Confirmed ; Classification: UPDATE NEEDED ; Code: 770.7 ; Contributor System: [employer] ; Last Updated: 11/14/20154:14 TUBE ROLLER ; Life Cycle Date: 06/01/2011 ; Life Cycle Status: Active ; Responsible Provider: LEN PITTMAN III, MD; Vocabulary: ICD-9-CM Cervical disc disease* (ICD-9-CM :722.4 ) Name of Problem: Cervical disc disease* ; Onset Date: 11/19/2012 ; Recorder: DOUG VAUGHN LPN; Confirmation: Confirmed ; Classification: Nursing ; Code: 722.4 ; Contributor System: [employer] ; Last Updated: 10/22/2013 10:25 TUBE ROLLER ; Life Cycle Date: 10/22/2013 ; Life Cycle Status: Active ; Responsible Provider: DOUG VAGUHN LPN; Vocabulary: ICD-9-CM ; Comments: 10/22/2013 10:25 - DOUG VAUGHN LPN per [facility] Rec Chronic Respiratory Disease Arising in the Period (ICD-9-CM :770.7 ) Name of Problem: Chronic Respiratory Disease Arising in the Period ; Onset Date: 04/21/2013 ; Confirmation: Confirmed ; Classification: UPDATE NEEDED ; Code: 770.7 ; Contributor System: [facility]_HX_PR_UPLOAD ; Last Updated: 12/12/2013 14:46 CDT ; Life Cycle Status: Active ; Vocabulary: ICD-9-CM ; Comments: - Chronic respiratory disease arising in the period Defect Atrial Septal (ASD) NOS (ICD-9-CM :745.5 ) Name of Problem: Defect Atrial Septal (ASD) NOS ; Onset Date: 2005 ; Recorder: TELMA JACOB NP; Confirmation: Confirmed ; Classification: Medical ; Code: 745.5 ; Contributor System: Power[employer] ; Last Updated: 07/06/2014 12:03 CDT ; Life Cycle Date: 07/06/2014 ; Life Cycle Status: Active ; Responsible Provider: TELMA JACOB NP; Vocabulary: ICD-9-CM ; Comments: 11/16/2014 19:26 - DIANNE WHITESIDE DNP, DEA 07/15/2014 Final Impressions 1. Technically limited cardiac windows due to pectus deformity. 2. Status post 34 mm Amplatzer atrial septal defect closure device (06-20-2006). 3. No shunt at atrial level by color flow imaging. 4. Normal right ventricular size with borderline reduced systolic function. Estimated RV systolic pressure = 28 mmHg. 5. Normal left ventricular chamber size and systolic function, calculated EF 58%. 6. No pericardial effusion. 7. Compared to the report of 08/22/2012 no significant change has occurred. 11/16/201419:28 - DIANNE WHITESIDE DNP, DEA Per cardiology [facility] I think she should have an echocardiogram and clinical visit every two years for surveillance of her device as well as monitoring forthe development of atrial arrhythmias. Depression Major Recurrent Mild (ICD-9-CM :296.31 ) Name of Problem: Depression Major Recurrent Mild; Onset Date: 1998 ; Recorder: LEN PITTMAN III, MD; Confirmation: Confirmed ; Classification: Medical ; Code: 296.31 ; Contributor System: [employer] ; Last Updated: 12/02/2013 16:06 CDT ; Life Cycle Date: 12/02/2013 ; Life Cycle Status: Active ; Vocabulary: ICD-9-CM Disorder Attention Deficit Inattentive (ICD-9-CM :314.00 ) Name of Problem: Disorder Attention Deficit Inattentive ; Recorder: LEN PITTMAN III, MD; Confirmation: Confirmed ; Classification: Medical ; Code: 314.00 ; Contributor System: Power[employer] ; Last Updated: 12/02/2013 16:07 CDT ; Life Cycle Date: 12/02/2013 ; Life Cycle Status: Active ; Vocabulary: ICD-9-CM 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 ; Onset Date: 2011 ; Recorder: TELMA JACOB NP; Confirmation: Confirmed ; Classification: Medical ; Code: 756.83 ; Contributor System: [employer] ; Last Updated: 07/06/2014 12:01 CDT ; Life Cycle Date: 07/06/2014 ; Life Cycle Status: Active ; Vocabulary: ICD-9-CM Fibromyalgia (ICD-9-CM :729.1 ) Name of Problem: Fibromyalgia ; Onset Date: 06/13/2008 ; Recorder: DOUG VAUGHN LPN; Confirmation: Confirmed ; Classification: Nursing ; Code: 729.1 ; Contributor System: [employer] ; Last Updated: 11/14/2015 4:14 TUBE ROLLER ; Life Cycle Date: 10/22/2013 ; Life Cycle Status: Active ; Responsible Provider: DOUG VAUGHN LPN; Vocabulary: ICD-9-CM Generalized Anxiety Disorder (ICD-9-CM :300.02 ) Name of Problem: Generalized Anxiety Disorder ; Onset Date: 10/08/2007 ; Confirmation: Confirmed ; Classification: Medical ; Code: 300.02 ; Contributor System: [employer]T-Quad [employer] ; Last Updated: 12/12/2013 14:46 CDT ; Life Cycle Status: Active ; Vocabulary: ICD-9-CM ; Comments: - Generalized anxiety disorder Insomnia, Unspecified (ICD-9-CM :780.52 ) Name of Problem: Insomnia, Unspecified ; Onset Date: 11/19/2012 ; Recorder: DOUG VAUGHN LPN; Confirmation: Confirmed ; Classification: Nursing ; Code: 780.52 ; Contributor System: [employer] ; Last Updated: 10/22/2013 10:22 TUBE ROLLER ; Life Cycle Date: 10/22/2013 ; Life Cycle Status: Active ; Responsible Provider: DOUG VAUGHN LPN; Vocabulary: ICD-9-CM ; Comments: 10/22/2013 10:22 - DOUG VAUHGN LPN per [facility] Med Rec Major Depressive Disorder, Recurrent Episode, Severe Degree, without Mention of Psychotic Behavior (ICD-9-CM :296.33 ) Name of Problem: Major Depressive Disorder, Recurrent Episode, Severe Degree, without Mention of Psychotic Behavior ; Onset Date: 10/22/2007 ; Confirmation: Confirmed ; Classification: Medical ; Code: 296.33 ; Contributor System: [employer] ; Last Updated: 12/12/2013 14:46 CDT; Life Cycle Status: Active ; Vocabulary: ICD-9-CM ; Comments: - Major depressive disorder, recurrent episode, severe, without mention of psychotic behavior Pneumonia - organism, NOS (ICD-9-CM :486 ) Name of Problem: Pneumonia - organism, NOS ; Onset Date: 03/23/2008 ; Recorder: DOUG VAUGHN LPN; Confirmation: Confirmed ; Classification: Nursing ; Code: 486 ; Contributor System: [employer] ; Last Updated: 10/22/2013 9:47 TUBE ROLLER ; Life Cycle Date: 10/22/2013 ; Life Cycle Status: Active ; Responsible Provider: DOUG VAUGHN LPN; Vocabulary: ICD-9-CM Post-traumatic stress disorder (PTSD) (ICD-9-CM :309.81 ) Name of Problem: Post- traumatic stress disorder (PTSD) ; Onset Date: 11/19/2012 ; Recorder: DOUG VAUGHN LPN; Confirmation: Confirmed ; Classification: Nursing ; Code: 309.81 ; Contributor System: [employer] ; Last Updated: 10/22/2013 10:21CST ; Life Cycle Date: 10/22/2013 ; Life Cycle Status: Active ; Responsible Provider: CIPRIANO VAUGHN LPN; Vocabulary: ICD-9-CM ; Comments: 10/22/2013 10:21 - DOUG VAUGHN LPN diagnosed per [facility] Rosacea (ICD-9-CM :695.3 ) Name of Problem: Rosacea ; Onset Date: 05/05/2012 ; Confirmation: Confirmed ; Classification: Medical ; Code: 695.3 ; Contributor System: [facility]_HX_PR_UPLOAD ; Last Updated: 12/12/2013 14:46 CDT ; Life Cycle Status: Active ; Vocabulary: ICD-9-CM ; Comments: - Rosacea Sinusitis (ICD-9-CM :473.9 ) Name of Problem: Sinusitis ; Onset Date: 09/19/2007 ; Recorder: DOUG VAUGHN LPN; Confirmation: Confirmed ; Classification: Nursing ; Code: 473.9 ; Contributor System: [employer] ; Last Updated: 10/22/2013 9:46 TUBE ROLLER ; Life Cycle Date: 10/22/2013 ; Life Cycle Status: Active ; Responsible Provider: DOUG VAUGHN LPN; Vocabulary: ICD-9-CM Vitamin D deficiency NOS (ICD-9-CM :268.9 ) Name of Problem: Vitamin D deficiency NOS ; Onset Date: 11/19/2012 ; Recorder: DOUG VAUGHN LPN; Confirmation: Confirmed ; Classification: Nursing ; Code: 268.9 ; Contributor System: Power[employer] ; Last Updated: 10/22/2013 10:23 TUBE ROLLER ; Life Cycle Date: 10/22 ; Life Cycle Status: Active ; Responsible Provider: DOUG VAUGHN LPN; Vocabulary: ICD-9-CM; Comments: 10/22/2013 10:23 - DOUG VAUGHN LPN per [facility] Rec Diagnoses(Active) Body aches Date: 09/24/2016 ; Diagnosis Type: Reason For Visit ; Confirmation: Complaint of ; Clinical Dx: Body aches ; Classification: Medical ; Clinical Service: Emergency medicine ; Code: PNED ; Probability: 0 ; Diagnosis Code: [id number] Triage Chief Complaint Description : Patient comes to the ED with complaints of ongoing sickness since Sep 15 and she now has been coughing has body aches for the past few days. Information Given By : Patient Present in Room During Exam/Procedure : Spouse Mode of Arrival ED : Private vehicle Track : Medical Languages : Filipino Treatments Prior to Arrival : None Is Patient Female and 13-50 no hysterectomy : No BEBETO SUAZO09/24/2016 2:50 TUBE ROLLER Pain Assessment Pain Symptoms : Yes TRU SUAZO 09/24/2016 2:50 TUBE ROLLER Pain Scale Pain Scale Verbal 0-10 : Open BEBETO SUAZO09/24/2016 2:50 TUBE ROLLER Pain Pain Assessment Grid Pain 1 Location : Other: body aches Intensity : 8 Time Pattern : Acute Onset : Gradual TRU SUAZO 09/24/2016 2:50 TUBE ROLLER ED Physician Notification Time ED Physician Notification Time : 09/24/2016 2:53 TUBE ROLLER BEBETO SUAZO09/24/2016 2:50 TUBE ROLLER DESTINEY DCP GENERIC CODE Tracking Acuity : 4 -Less Urgent Tracking Group : [facility] ED TRU SUAZO 09/24/2016 2:50 TUBE ROLLER Allergy (As Of: 09/24/2016 02:54:23 TUBE ROLLER) Allergies (Active) buPROPion Estimated Onset Date: Unspecified ; Reactions: diarrehea ; Created By: DOUG VAUGHN LPN; Reaction Status: Active ; Category: Drug ; Substance: buPROPion ; Type: Allergy ; Updated By: DOUG VAUGHN LPN; Reviewed Date: 09/24/2016 2:54 TUBE ROLLER erythromycin Estimated Onset Date: Unspecified ; Reactions: stomach upset,, vomiting ; Created By: MATIAS MCDUFFIE LPN; Reaction Status: Active ; Category: Drug ; Substance: erythromycin ; Type: Allergy ; Updated By: MATIAS MCDUFFIE LPN; Reviewed Date: 04/06/2016 16:16 CDT Immunizations Immunizations Current : Yes Influenza : This year TRU SUAZO - 09/24/2016 2:50 TUBE ROLLER Source: [employer] Document Id: [id number] TUBE ROLLER!30 ROLLER documented in this encounter Miscellaneous Notes Miscellaneous - Conversion, Historical Provider Ser - 09/24/2016 3:55 AM TUBE ROLLER Coding Summary-Paper Based CODING DATE: 10/02/2016 FINAL [facility] STATUS: * Discharged to Home or Self Care PAYOR: [employer] ADMIT DX: M79.1 Myalgia REASON FOR VISIT DX: M79.1 Myalgia FINAL DX: PRINCIPAL: J06.9 Acute upper respiratory infection, unspecified SECONDARY: M25.50 Pain in unspecified joint M79.1 Myalgia J45.909 Unspecified asthma, uncomplicated Z88.1 Allergy status to other antibiotic agents status Z88.8 Allergy status to other drugs, medicaments and biological substances status PROCEDURES DOCTOR NAME DATE NOTE: The code number assigned matches the documented diagnosis and / or procedure in the patient's chart. However, the narrative phrase printed from the coding software may appear abbreviated, or result in slightly different terminology. Coded By: SILVANO BENNETT Date Saved: 10/02/2016 08:17 am Source: [employer] Document Id: [id number] Miscellaneous - Tru Suazo R.N. - 09/24/2016 3:53 AM CST Valuables/Belongings Valuables/Belongings Entered On: 09/24/2016 3:53 TUBE ROLLER Performed On: 09/24/2016 3:53 TUBE ROLLER by TRU SUAZO Valuables/Belongingrolando Home Medication Disposition : None brought in with patient TRU SUAZO - 09/24/2016 3:53 TUBE ROLLER Source: [facility] [employer] Document Id: [id number] TUBE ROLLER!3 ROLLER Miscellaneous - Len Pittman M.D. - 09/24/2016 3:50 AM CST Work Excuse September 24, 2016 CHRISTOPHER TY [address] [place] [address] [phone] Dear CHRISTOPHER TY, You were examined in my office on: 09/24/2016 Reason for work excuse: Medical Illness ( x ) Yes ( _ ) No Injury ( _ ) Yes ( _ ) No Is excused from all work: ( x ) Yes ( _ ) No Has work limitations: ( _ ) Yes ( _ ) No As follows: _ Limitations apply until: _ Follow-Up Appointment : ( _ ) Return to Work date: 09/26/2016 Notes: _ Sincerely, LEN PITTMAN [id number] [address] Electronic Signature Electronically Signed By: LEN PITTMAN III, MD On: September 24, 2016 This document has images extracted. Source: [facility] [employer] Document Id: [id number] Electronically signed by Jennifer [facility] Fur Blowing Machine Attendant [id number] at 02/25/2017 10:14 PM CDT Miscellaneous - Tru Suazo R.N. - 09/24/2016 2:45 AM CST Facility Charge Ticket 2.0 11.0 DX Facility Charge Ticket 2.0 11.0 DX Entered On: 09/24/2016 3:53 TUBE ROLLER Performed On: 09/24/2016 2:45 TUBE ROLLER by TRU SUAZO Facility Charge Ticket 2.0 11.0 DX ED Other Charges : Standard ED Encounter TVL Level Translated RTF : Body aches TVL:3 TVL Level for Facility Charge Ticket : Level 3 Arrival Mode Calc : 1 Mode of Arrival ED : Private vehicle [facility] Mode of Arrival Interpreted : Standard [facility] Process Management : None Order Management RTF : Laboratory Influenza A/B Antigen,09/24/16 03:08,LEN PITTMAN III, MD Completed [facility] Order Management : Lab tests 30 Minutes Critical Care : No Nursing Notes RTF : Triage Forms ED Triage Assessment,09/24/16 02:50,TRU SUAZO Nursing Notes ED Primary Assessment,09/24/16 02:55,TRU SUAZO Nursing Assessment : Triage and 1-2 nursing assessments [facility] Disposition : Discharge [facility] Total Points with Diagnosis Control : 6 [facility] Visit Level : 95733 Level 3 Treatments Prior to Arrival : None TRU SUAZO - 09/24/2016 3:53 TUBE ROLLER Source: [facility] [employer] Document Id: [id number] TUBE ROLLER!18 ROLLER documented in this encounter Plan of Treatment Not on filedocumented as of this encounter Procedures Procedure Name Priority Date/Time Associated Diagnosis Comme nts INFLUENZA A/B Routine 09/24/2016 3:20 AM Results for this TUBE ROLLER procedure are i n the results section . documented in this encounter Results Influenza A/B (09/24/2016 3:20 AM TUBE ROLLER) P athologist Signature HXInfluenza A POWERCHART and B AG Comment: If result is negative: The sensitivity/specificity of the Influ ramon A screening test is 80% and 93% respectively. The sensitivity/specificity of the Influ ramon B screening test is 65% and 97% respectively. If further testing is indicated, please call the laboratory to order the referred MML PCR test. HXFinal Negative for Influenzae A protein antigen. POWERCHART HXFinal Negative for Influenzae B protein antigen. POWERCHART HXFinal Reference: Negative for Influenzae A and Influenzae B POWERCHART protein antigens. Specimen (Source) Anatomical Collection Method Collection Time Re ceived Time Location / / Volume Laterality Nasal 09/24/2016 3:20 AM TUBE ROLLER Len Pittman III, M.D. LAB MICROBIOLOGY - [facility] ORDERABLES Performing Organization Address City/State/ZIP Code Phon e Number POWERCHART documented in this encounter Visit Diagnoses Not on filedocumented in this encounter
--- OUTSIDE RECORDS SUMMARY | 2022-08-29 12:16 | XMS_ITS | Encounter Summary ---
:1975 Author Organization [facility] Address [address] [place] [address] Care Team Providers Name Role Phone Unavailable Primary Care Provider Unavailable Encounter Details Date Type Department Care Team Description 10/15/2016 Hospital Encounter HX [facility] Zayra Garland, CHILD AND ADOLESCENT THERAPIST, C.N.P. [address] [place], [place] [address] (Wo rk) Social History Tobacco Use Types Packs/Day Years Used Date Smoking Tobacco: Never Sex Assigned at Date Recorded Female 02/11/2018 8:36 AM CDT documented as of this encounter Last Filed Vital Signs Vital Sign Reading Time Taken Comments Blood Pressure 131/73 10/15/2016 4:31 PM [employer] Pulse 58 10/15/2016 4:31 PM [employer] Temperature - - Respiratory Rate 18 10/15/2016 4:31 PM [employer] Oxygen Saturation - - Inhaled Oxygen Concentration - - Weight 91.8 kg (202 lb 6.1 oz) 10/15/2016 4:31 PM [employer] Height 175 cm (5' 8.9) 10/15/2016 4:31 PM [employer] Body Mass Index 29.98 10/15/2016 4:31 PM [employer] documented in this encounter Medications at Time [...] spray nostril(s). documented as of this encounter H&P Notes Carolyn Garland R.N. - 10/15/2016 5:01 PM CST Clinic Full Note CHIEF COMPLAINT/REASON FOR VISIT General medical exam. HISTORY OF PRESENT ILLNESS Christopher is a very pleasant 41-year-old female who comes into the clinic today for her annual physical. She reports no new medical concerns today. She reports her daily prescription medications were renewed in March and June of 2016 with her previous provider. She reports she recently changed employers and is working at [employer] in [place], [place]. She has a medical history significant for depression, attention deficit inattentive disorder, anxiety and asthma. She reports no concerns with her daily prescription medications. She reports trying to eat a well balanced diet, but does not have a regular exercise program. She is here today for further evaluation. She has no other concerns today. MEDICATIONS albuterol CFC free 90 mcg/inh inhalation aerosol, 2 puff(s), Asthma, Inhalation, q4hr, PRN, 11 refills Breo Ellipta 200 mcg-25 mcg/inh inhalation powder, 1 puff(s), Inhalation, Daily, 11 refills citalopram 20 mg oral tablet, 30 mg, 1.5 tab(s), PO, Daily, 3 refills Flonase 50 mcg/inh nasal spray, 1 spray(s), Nostrils(Both), 2xDay, 3 refills ibuprofen 200 mg oral capsule, 200 mg, PO, q4hr, PRN methylphenidate 10 mg oral tablet, 10 mg, 1 tab(s), AM & Afternoon, PO, 2xDay, 0 refills Spiriva 18 mcg inhalation capsule, 18 mcg, 1 each, use two inhalations of one capsule for each dose, Inhalation, Daily, 3 refills, * traZODone 50 mg oral tablet, 100 mg, 2 tab(s), PO, Bedtime, 3 refills Zoloft 25 mg oral tablet, See Instructions, To be taken when weaned off citalopram. 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 (), Tubal ligation. SOCIAL HISTORY Date Time: 10/15/2016 16:34 Tobacco: Smoking Status: Never smoker Exposure: Care provider denies smoking in home, Other: never Alcohol: Use: No Recreational Drugs: Use: None Type: No Results Found FAMILY HISTORY Father:Family History Unknown. SYSTEMS REVIEW GENERAL: Denies extreme fatigue, unexplained weight loss/gain or concerns for depression, trouble concentrating or memory concerns. HEENT: Denies visual changes/disturbances, hearing changes/disturbances, difficulty chewing/swallowing. HEART: Denies palpitations, chest pain or shortness of breath with or without exertion. GI: Denies abdominal pain, difficulty having bowel movements or frequent episodes of diarrhea. : Denies urgency, frequency, or burning with urination. MUSCULOSKELETAL: Denies joint pain or muscle fatigue. NEUROLOGICAL: Denies frequent headaches, dizziness or numbness/tingling in her upper or lower extremities. VITAL SIGNS T: 36.3 ??C (Core) HR: 58 RR: 18 BP: 131 / 73 SpO2: 96% HT: 175 cm WT: 91.8 kg BMI: 29.98 PHYSICAL EXAMINATION GENERAL: Alert and oriented. No acute distress. HEENT: Normocephalic/atraumatic. Canals patent, TMs normal. Oropharynx without lesion of mucosa. Pharyngeal rises symmetrically without exudate. NECK: No nodes, no thyromegaly. HEART: Regular rate and rhythm. No murmurs, gallops or rubs noted. LUNGS: Clear to auscultation bilaterally. No expiratory wheeze. No accessory muscles of respirationnoted. BREASTS: Soft breast tissue without predominant mass or nodularity. No nipple discharge. Nipples everted bilaterally. No axillary or supraclavicular adenopathy. ABDOMEN: Nontender to palpation. No hepato-splenomegaly. No mass. Normal bowel sounds in all 4 quadrants. PELVIS: Deferred. Partial hysterectomy in 2005. EXTREMITIES: No neurovascular compromise. No cyanosis, clubbing or edema. IMPRESSION/REPORT/PLAN Asthma NOS (493.90) Stable. No medication refills were provided. Ordered: OV Est Pt Prev 396 Depression Major Recurrent Mild Stable. She was instructed to continue citalopram daily for symptom management. Ordered: OV Est Pt Prev 40396 Disorder Attention Deficit Inattentive Stable. She was instructed to contact the clinic for a medication refill related to her stimulant medication as needed. Ordered: OV Est Pt Prev 40396 General Medical Exam Adult (GME) Age appropriate anticipatory guidance was provided. She completed a partial hysterectomy in 2005. She is requesting a referral for a 3D mammogram at [employer] in [place], [place]. She declined a lipid panel or fasting glucose today. All questions were answered. She left in no acute distress. Ordered: OV Est Pt Prev [id number] Electronically Signed By: CAROLYN GARLAND MANAGER DEMAND On: 10/15/2016 05:15 PM Source: [facility] POWERCHART Document Id: [id number] [employer] documented in this encounter Miscellaneous Notes Miscellaneous - Phu Nicole RPeter. - 07/19/2017 3:51 PM CDT Citalopram/visit Document Contains Addenda Addendum by PHU NICOLE RN on July 19, 2017 16:42:01 CDT noted Addendum by CAROLYN GARLAND CNP, RN on July 19, 2017 16:34:39 CDT From: CAROLYN GARLAND CNP, RN To: [facility] Nurse Tabares; Sent: 07/19/2017 16:34:39 CDT Subject: RE: Citalopram/visit Thanks! Addendum by CAROLYN GARLAND CNP, RN on July 19, 2017 16:34:30 CDT Approved Order:citalopram (citalopram 20 mg oral tablet) 1.5 tab(s) PO Daily Please advise, visit needed prior to additional refills. Qty: 45 tab(s) Refills: 0 Substitutions Allowed Route To [facility] Signed by CAROLYN GARLAND CNP, GEMA 07/19/2017 16:33:36 From: PHU NICOLE RN ([facility] Nurse Tabares) To: CAROLYN GARLAND CNP, RN; PHU NICOLE RN; Sent: 07/19/2017 15:51:19 CDT Subject: Citalopram/visit On hold pending signature Order:citalopram (citalopram 20 mg oral tablet) 1.5 tab(s) PO Daily Please advise, visit needed prior to additional refills. Qty: 45 tab(s) Refills: 0 Substitutions Allowed Route To [facility] On hold pending signature Order:Return Visit Fam Med (Fam Med Return Visit) Next available Details: 1 Week, Send to Scheduling, bi-annual depression f/u; med refills, 07/26/2017 0:00 [employer], Next available, [facility] Family Med LV 10/15/16 GME LF 06/19/16 qty 135 refills 3 Per RN protocol-visit due q 6 months No recent PHQ9 Proposed visit proposed refill Source: [facility] POWERCHART Document Id: [id number] Sherriecellaneous - Keisha Nichole R.N. - 05/13/2017 3:58 PM CDT Trazodone Document Contains Addenda Addendum by ADELAIDE GARCÍA RN on May 14, 2017 07:16:06 CDT noted Addendum by CAROLYN GARLAND CNP, RN on May 13, 2017 16:05:14 CDT From: CAROLYN GARLAND CNP, RN To: KEISHA NICHOLE RN; Sent: 05/13/2017 16:05:14 CDT Subject: RE: Trazodone Thanks! Addendum by CAROLYN GARLAND CNP, RN on May 13, 2017 16:05:09 CDT Approved Order:traZODone (traZODone 50 mg oral tablet) 2 tab(s) PO Bedtime Qty: 180 tab(s) Duration: 90 day(s) Refills: 3 Substitutions Allowed Route To [facility] Signed by CAROLYN GARLAND CNP, RN 05/13/2017 16:05:00 From: KEISHA NICHOLE RN To: CAROLYN GARLAND CNP, RN; Cc: KEISHA NICHOLE RN; Sent: 05/13/2017 15:58:51 CDT Subject: Trazodone On hold pending signature Order:traZODone (traZODone 50 mg oral tablet) 2 tab(s) PO Bedtime Qty: 180 tab(s) Duration: 90 day(s) Refills: 3 Substitutions Allowed Route To [facility] LV with you 10/15/16 for general exam. LF 04/06/16, #180, 3R by Adriana Pickens [facility] Source: [facility] POWERCHART Document Id: [id number] Miscellaneous - Heather France W - 04/19/2017 1:00 PM CDT Med Management Document Contains Addenda Addendum by RASTA BROWN LPN on April 19, 2017 14:43:35 CDT Noted Addendum by CAROLYN GARLAND CNP, RN on April 19, 2017 13:04:28 CDT From: CAROLYN GARLAND CNP, RN To: [facility] Nurse Holden; Sent: 04/19/2017 13:04:28 CDT Subject: RE: Med Management Thanks! Addendum by CAROLYN GARLAND CNP, RN on April 19, 2017 13:04:17 CDT Approved Order:fluticasone nasal (Flonase 50 mcg/inh nasal spray) 1 spray(s) Nostrils(Both) 2xDay Qty: 3 each Refills: 3 Substitutions Allowed Route To Pharmacy - [facility] Signed by CAROLYN GARLAND CNP, GEMA 04/19/2017 13:04:13 Approved Order:fluticasone-vilanterol (Breo Ellipta 200 mcg-25 mcg/inh inhalation powder) 1 puff(s) Inhalation Daily Qty: 1 each Refills: 11 Substitutions Allowed Route To Pharmacy - [facility] Signed by CAROLYN GARLAND CNP, GEMA 04/19/2017 13:04:13 From: HEATHER [place] ([facility] Nurse Holden) To: CAROLYN GARLAND CNP, RN; Sent: 04/19/2017 13:00:45 CDT Subject: Med Management On hold pending signature Order:fluticasone-vilanterol (Breo Ellipta 200 mcg-25 mcg/inh inhalation powder) 1 puff(s) Inhalation Daily Qty: 1 each Refills: 11 Substitutions Allowed Route To Pharmacy - [facility] On hold pending signature Order:fluticasone nasal (Flonase 50 mcg/inh nasal spray) 1 spray(s) Nostrils(Both) 2xDay Qty: 3 each Refills: 3 Substitutions Allowed Route To Pharmacy - [facility] >24 hour surge. Not reviewed by RN Refill Protocol. REFILL REQUEST NOT REVIEWED BY RESPIRATORY CARE ASSISTANT POOL Source: [facility] POWERCHART Document Id: [id number] Telephone Encounter - Joey Birmingham - 10/18/2016 2:46 PM CST RE: Outside Referral Document Contains Addenda Addendum by CAROLYN GARLAND MANAGER DEMAND on October 18, 2016 15:59:48 [employer] From: CAROLYN GARLAND MANAGER DEMAND To: [facility] Registered Nurse Step Down/Referrals; Sent: 10/18/2016 15:59:48 [employer] Subject: RE: Outside Referral Thanks so much! From: JOEY BIRMINGHAM ([facility] Registered Nurse Step Down/Referrals) To: CAROLYN GARLAND MANAGER DEMAND; Sent: 10/18/2016 14:46:04 [employer] Subject: RE: Outside Referral Referral has been faxed to [facility] The following patient has a Consult to Outside Specialist [facility]: order placed. No Flagged Problems Patient Name: CHRISTOPHER YT Diagnosis: Encounter for general adult medical examination without abnormal findings,for general adult medical examination without abnormal findings, Ordering Provider: CAROLYN GARLAND MANAGER DEMAND ; Original Order DT/TM: October 17, 2016 22:25:47 [employer] ; Order Details: Department: Radiology Non[facility] Facility ([facility]): Other: Define in Special Instructions Subspecialty Requested: NOT FOUND Schedule with Specific Provider, If Known: NOT FOUND Appointment has been/will be made by: My Department If yes, When is appointment: NOT FOUND Arc to Process Referral : NOT FOUND Special Instructions: Patient requesting 3D mammogram at [facility]- fax # for front deskis [phone] No Flagged Problems General Medical Exam Adult (GME) Patient has the following Flagged Problems: No Flagged Problems Available Source: [facility] [employer] Document Id: [id number] Electronically signed by Conversion, [facility] Weight Reducing Technician [id number] at 02/26/2017 3:56 AM CDT Miscellaneous - Conversion, Historical Provider Ser - 10/18/2016 2:16 PM [employer] Transition of Care Message October 18, 2016 Re: CHRISTOPHER TY 1975 MR# [id number] Date of Visit 10/15/2016 [facility] - Radiology, [place], To Whom it May Concern, This patient is being referred for continuing care at your facility. Please see pertinent records included. Thank you for your assistance with the continuing care of this patient. Sincerely, Carolyn Garland NP This document has images extracted. Source: [facility] [employer] Document Id: [id number] Miscellaneous - Joey Birmingham - 10/18/2016 1:56 PM CST Referral Document Contains Addenda Addendum by CAROLYN GARLAND NP on October 18, 2016 14:31:00 [employer] From: CAROLYN GARLAND NP To: JOEY BIRMINGHAM; Sent: 10/18/2016 14:31:00 [employer] Subject: RE: Referral Perfect. Thanks so much! Addendum by JOEY BIRMINGHAM on October 18, 2016 14:10:06 [employer] From: JOEY BIRMINGHAM To: CAROLYN GARLAND NP; Sent: 10/18/2016 14:10:06 [employer] Subject: FW: Referral Sorry I just seen it in our pool. I will fax it off. From: JOEY BIRMINGHAM To: CAROLYN GARLAND MANAGER DEMAND; Sent: 10/18/2016 13:56:56 [employer] Subject: Referral Patient called stating she was to have a referral to [facility] for a 3D mammogram. I seen it stated in the chart. Could you please send me a referral and I can fax it up there for her. She gave me a better fax number [phone]. Thank you. Source: [facility] POWERCHART Document Id: [id number] Electronically signed by Jennifer [facility] Weight Reducing Technician [id number] at 02/26/2017 3:56 AM CDT Miscellaneous - Lilliam Wilson L.P.NVicenta - 10/15/2016 4:34 PM CST Health Assessment Health Assessment Entered On: 10/15/2016 16:35 [employer] Performed On: 10/15/2016 16:34 [employer] by LILLIAM WILSON LPN Health Assessment Complete Health Assessment Complete or Modified : Annual Health Assessment Annual Health Assessment Completed : Yes LILLIAM WILSON LPN - 10/15/2016 16:34 [employer] Nutrition Nutrition Risk Factors by History Adult : None LILLIAM WILSON LPN - 10/15/2016 16:34 [employer] Functional Current Daily Living Assistance : None LILLIAM WILSON LPN - 10/15/2016 16:34 [employer] Dependent Habits Exposure to Tobacco Smoke : Care provider denies smoking in home, Other: never Smoking Status : Never smoker Tobacco 2A : No Tobacco Use/Currently Using : No Tobacco Use/Last 30 Days : No Tobacco Use/Last 12 months : No Alcohol Use : No LILLIAM WILSON LPN - 10/15/2016 16:34 [employer] Caffeine Use Grid Caffeine Use : Current Type : Coffee Frequency : Occasionally LILLIAM WILSON LPN - 10/15/2016 16:34 [employer] Recreational Drug Use Grid Drug Use : None LILLIAM WILSON LPN - 10/15/2016 16:34 [employer] Psychosocial Domestic Abuse Concerns : None Behavioral Health Screen/Safety Assmt : No Zoroastrian Preference : No Zoroastrian Affiliation LILLIAM WILSON LPN - 10/15/2016 16:34 [employer] Advance Directive Advanced Directives : No Advance Directive Additional Information : No LILLIAM WILSON ANTISUBMARINE WEAPONS OFFICER - 10/15/2016 16:34 [employer] Educ Needs Learning Style Preference Adult Grid Patient : None Family : None LILLIAM WILSON LPN - 10/15/2016 16:34 [employer] Source: [facility] POWERCHART Document Id: [id number] [employer]!35 ER [employer] Miscellaneous - Lilliam Wilson LVicentaP.N. 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 Intake/History Entered On: 10/15/2016 16:33 [employer] Performed On: 10/15/2016 16:31 [employer] by LILLIAM WILSON LPN Intake Chief Complaint : annual physical Temperature Core : 36.3 DegC(Converted to: 97.3 DegF) (LOW) Peripheral Pulse Rate : 58 /min (LOW) Respiratory Rate : 18 /min Heart Rhythm : Regular Systolic Blood Pressure : 131 mmHg Diastolic Blood Pressure : 73 mmHg NIBP Mean : 92 mmHg BP Location : Left upper extremity Blood Pressure Cuff Size : Regular SpO2 : 96 % Oxygen Therapy : Room air Height : 175 cm(Converted to: 5 ft 9 inch(es), 69 inch(es)) Actual Weight : 91.8 kg(Converted to: 202 lb 6 oz) Weight Source : Standing scale Dosing Weight Clinic : 91.8 kg Clinic BSA : 2.11 Body Mass Index : 29.98 kg/m2 LILLIAM WILSON LPN - 10/15/2016 16:31 [employer] General Info Information Given By : Patient Languages : Citizen Of [place] Is Patient Female and 13-50 no hysterectomy : LILLIAM Hernandez LPN - 10/15/2016 16:31 [employer] Subjective Pain Symptoms : LILLIAM Hernandez LPN - 10/15/2016 16:31 [employer] Dependent Habits Exposure to Tobacco Smoke : Care provider denies smoking in home, Other: never Smoking Status : Never smoker Tobacco 2A : No Tobacco Use/Currently Using : No Tobacco Use/Last 30 Days : No Tobacco Use/Last 12 months : No Alcohol Use : LILLIAM Hernandez LPN - 10/15/2016 16:31 [employer] Caffeine Use Grid Caffeine Use : Current Type : Coffee Frequency : Occasionally LILLIAM WILSON LPN - 10/15/2016 16:31 [employer] Recreational Drug Use Grid Drug Use : None LILLIAM WILSON LPN - 10/15/2016 16:31 [employer] [facility] Document Id: [id number] [employer]!42 ER [employer] documented in this encounter Plan of Treatment Not on filedocumented as of this encounter Visit Diagnoses Not on filedocumented in this encounter
--- OUTSIDE RECORDS SUMMARY | 2022-08-29 12:16 | XMS_ITS | Encounter Summary ---
:1975 Author Organization [facility] Address [address] [place] [address] Care Team Providers Name Role Phone Carolyn Garland APRN, C.N.P. Primary Care Provider [phone] Reason for Referral Outpatient (Routine) - Closed Specialty Diagnoses / Procedures Referred By Contact Refer red To Contact Diagnoses Chronic Obstructive Pulmonary Disease (HCC) Atrial Septal Defect Unspecified (HCC) Lizy Danlos Syndrome [facility] Procedures ECG 12 Lead KS EKG 12 LEAD TRACE ONLY KS EKG I&R ONLY M.D. [address] [place], [place] [id number] Referral ID Status Reason Start Date Expiration Date Visits Requ ested Visits Authorized [id number] Closed 01/02/2018 07/01/2018 1 1 Encounter Details Date Type Department Care Team Description 01/02/2018 Orders Only Department of Amaury Mcgwoan Atrial Septal (HCC); Cardiovascular Medicine Dominique Tyson M.D. Chronic Obstructive Pulmonary Disease (H CC); in [facility] traffic division commanding officer [address] [facility] Lizy Danlos Syndrome [address] [place] [phone] Social History Tobacco Use Types Packs/Day Years Used Date Smoking Tobacco: Never Smokeless Tobacco: Never Alcohol Use Standard Drinks/Week Comments No 0 (1 standard drink = 0.6 oz pure alcoho l) Sex Assigned at Date Recorded Female 02/11/2018 8:36 AM CDT documented as of this encounter Plan of Treatment Not on filedocumented as of this encounter Results ECG 12 Lead (02/13/2018 7:48 AM CDT) P athologist Signature Ventricular Rate 67 BPM MUSE ECG/Min [place] Interval 166 ms MUSE QRSD Interval 88 ms MUSE QT Interval 384 ms MUSE QTC Interval 405 ms MUSE P [place] 46 degrees MUSE R [place] 55 degrees MUSE T Wave [place] 7 degrees MUSE Specimen Anatomical Collection Method Collection Time Receive d Time (Source) Location / / Volume Laterality 02/13/2018 7:48 AM 8 8:16 CDT AM CDT Impressions MUSE - 02/13/2018 8:16 AM CDT Normal sinus rhythm Left atrial enlargement T wave abnormality, consider inferolater al ischemia When compared with ECG of 22-AUG-2012 08 :16, No significant change was found Narrative This result has an attachment that is no t available. Dominique Mcgowan M.D. ECG ORDERABLES Performing Organization Address City/State/ZIP Code Phon e Number MUSE MUSE NA Glucose, Fasting (02/13/2018 6:57 AM CDT) P athologist Signature Glucose, P 87 70 - 100 02/13/2018 [facility] mg/dL 7:53 AM CDT LABORATORIES [facility] Last Intake 13 hr 02/13/2018 [facility] 7:17 AM CDT [facility] Specimen Anatomical Collection Method Collection Time Receive d Time (Source) Location / / Volume Laterality Blood 02/13/2018 6:57 AM 8 7:17 CDT AM CDT Dominique Mcgowan M.D. LAB BLOOD NON ADD-ON Performing Organization Address City/State/ZIP Code Phon e Number [facility]IES - [address] [place], [place] [address] [facility] Sodium (02/13/2018 6:56 AM CDT) P athologist Signature Sodium, S 140 135 - 145 02/13/2018 [facility] mmol/L 8:08 AM CDT LABORATORIES [facility] Specimen Anatomical Collection Method Collection Time Receive d Time (Source) Location / / Volume Laterality Blood 02/13/2018 6:56 AM 8 7:18 CDT AM CDT Dominique Mcgowan M.D. LAB BLOOD ADD-ON Performing Organization Address City/State/ZIP Code Phon e Number [facility] - [address] [place], [place] [address] [facility] Protein, Total (02/13/2018 6:56 AM CDT) P athologist Signature Protein, 7.0 6.3 - 7.9 02/13/2018 [facility] Total, S g/dL 8:08 AM CDT [facility] Specimen Anatomical Collection Method Collection Time Receive d Time (Source) Location / / Volume Laterality Blood 02/13/2018 6:56 AM 8 7:18 CDT AM CDT Dominique Mcgowan M.D. LAB BLOOD ADD-ON Performing Organization Address City/[facility]/ZIP Code Phon e Number [facility] - [address] [place], [place] [address] [facility] Potassium (02/13/2018 6:56 AM CDT) athologist Signature Potassium, S 4.5 3.6 - 5.2 02/13/2018 [facility] mmol/L 8:08 AM CDT [facility] Specimen Anatomical Collection Method Collection Time Receive d Time (Source) Location / / Volume Laterality Blood 02/13/2018 6:56 AM 8 7:18 CDT AM CDT Dominique Mcgowan M.D. LAB BLOOD ADD-ON Performing Organization Address City/[facility] Phon e Number [facility] - [address] [place], [place] [address] [facility] (ABNORMAL) Lipid Panel (02/13/2018 6:56 AM CDT) [facility] Method Time Signature Cholesterol, 200 (H) mg/dL 02/13/2018 [facility] Total 8:08 AM CDT [facility] Comment: ----REFERENCE VALUE---- Desirable: < 200 Borderline high: 200 - 239 High: > or = 240 Triglycerides 143 mg/dL 02/13/2018 8:08 AM CDT [facility] Comment: ----REFERENCE VALUE---- Normal: <150 Borderline high: 150-199 High: 200-499 Very high: > or =500 Cholesterol, HDL, S 49 (L) >=50 mg/dL 02/13/2018 8:[address] [facility] Calculated LDL 122 mg/dL 02/13/2018 8:08 AM [facility] REED T [facility] Comment: ----REFERENCE VALUE---- Desirable: <100 Above Desirable: 100-129 Borderline high: 130-159 High: 160-189 Very high: > or =190 Cholesterol, Non-HDL, 151 mg/dL 02/13/2018 8:0 8 AM T [facility] Calculated - [facility] [place] [facility] Comment: ----REFERENCE VALUE---- Desirable: <130 Above Desirable: 130-159 Borderline high: 160-189 High: 190-219 Very high: > or =220 Specimen Anatomical Collection Method Collection Time Receive d Time (Source) Location / / Volume Laterality Blood 02/13/2018 6:56 AM 8 7:18 CDT AM CDT Dominique Mcgowan M.D. LAB BLOOD ADD-ON Performing Organization Address City/State/ZIP Code Phon e Number [facility] - [address] [place], [place] [address] [facility] Creatinine with Estimated GFR (MDRD) (02/13/2018 6:56 AM CDT) Analysis Performed At [facility] Time Signature Creatinine 0.82 0.59 - 02/13/2018 [facility] 1.04 mg/dL 8:08 AM CDT [facility] eGFR-Non 89 >=60 02/13/2018 [facility] Black/ mL/min/BSA 8:08 AM T LABORATORIES [facility] Comment: ----ADDITIONAL INFORMATION---- Estimated GFR calculated using the 2009 CKD_EPI creatinine equation. eGFR-Black/ >90 >=60 mL/min/BSA 02/13/2018 8:08 [facility] [place] CDT LABORATORIES [facility] Comment: ----ADDITIONAL INFORMATION---- Estimated GFR calculated using the 2009 CKD_EPI creatinine equation. Specimen Anatomical Collection Method Collection Time Receive d Time (Source) Location / / Volume Laterality Blood 02/13/2018 6:56 AM 8 7:18 CDT AM CDT Dominique Mcgowan M.D. LAB BLOOD ADD-ON Performing Organization Address City/State/ZIP Code Phon e Number [facility] - [address] [place], [place] [address] [facility] (ABNORMAL) CBC with Differential (02/13/2018 6:56 AM CDT) [facility] gist Method Time Signature Hemoglobin 14.7 11.6 - 02/13/2018 [facility] 15.0 g/dL 7:59 AM CDT LABORATORIES - [facility] Hematocrit 44.1 35.5 - 02/13/2018 [facility] 44.9 % 7:59 AM CDT LABORATORIES - [facility] Erythrocytes 4.77 3.92 - 02/13/2018 [facility] 5.13 7:59 AM CDT LABORATORIES - x10(12)/L [facility] MCV 92.5 78.2 - 02/13/2018 [facility] 97.9 fL 7:59 AM CDT LABORATORIES - [facility] RBC Distrib 12.1 (L) 12.2 - 02/13/2018 [facility] Width 16.1 % 7:59 AM CDT LABORATORIES - [facility] Platelet Count 216 157 - 371 02/13/2018 [facility] x10(9)/L 7:59 AM CDT LABORATORIES - [facility] Leukocytes 7.7 3.4 - 9.6 02/13/2018 [facility] x10(9)/L 7:59 AM CDT LABORATORIES - [facility] Neutrophils 5.05 1.56 - 02/13/2018 [facility] 6.45 7:59 AM CDT LABORATORIES - x10(9)/L [facility] Lymphocytes 1.86 0.95 - 02/13/2018 [facility] 3.07 7:59 AM CDT LABORATORIES - x10(9)/L [facility] Monocytes 0.40 0.26 - 02/13/2018 [facility] 0.81 7:59 AM CDT LABORATORIES - x10(9)/L [facility] Eosinophils 0.35 0.03 - 02/13/2018 [facility] 0.48 7:59 AM CDT LABORATORIES - x10(9)/L [facility] Basophils 0.04 0.01 - 02/13/2018 [facility] 0.08 7:59 AM CDT LABORATORIES - x10(9)/L [facility] Specimen Anatomical Collection Method Collection Time Receive d Time (Source) Location / / Volume Laterality Blood 02/13/2018 6:56 AM 8 7:18 CDT AM CDT Dominique Mcgowan M.D. LAB BLOOD ADD-ON Performing Organization Address City/State/ZIP Code Phon e Number [facility] - [address] [place], [place] [address] [facility] BUN (Blood Urea Nitrogen) (02/13/2018 6:56 AM CDT) P athologist Signature BUN (Blood 17 6 - 21 02/13/2018 [facility] Urea mg/dL 8:08 AM CDT LABORATORIES - Nitrogen), S [facility] Specimen Anatomical Collection Method Collection Time Receive d Time (Source) Location / / Volume Laterality Blood 02/13/2018 6:56 AM 8 7:18 CDT AM CDT Dominique Mcgowan M.D. LAB BLOOD ADD-ON Performing Organization Address City/[facility]/ZIP Code Phon e Number [facility] - [address] [place], [place] [address] [facility] AST (Aspartate Aminotransferase) (02/13/2018 6:56 AM CDT) Patholo gist Method Time Signature Aspartate 20 8 - 43 02/13/2018 [facility] Aminotransferase U/L 8:08 AM CDT LABORATORIE S - (AST), S [facility] Specimen Anatomical Collection Method Collection Time Receive d Time (Source) Location / / Volume Laterality Blood 02/13/2018 6:56 AM 8 7:18 CDT AM CDT Dominique Mcgowan M.D. LAB BLOOD ADD-ON Performing Organization Address City/State/ZIP Code Phon e Number [facility] - [address] [place], [place] [address] [facility] Albumin (02/13/2018 6:56 AM CDT) P athologist Signature Albumin, S 4.3 3.5 - 5.0 02/13/2018 [facility] g/dL 8:08 AM CDT LABORATORIES - [facility] Specimen Anatomical Collection Method Collection Time Receive d Time (Source) Location / / Volume Laterality Blood 02/13/2018 6:56 AM 05/31/201 8 7:18 CDT AM CDT Dominique Mcgowan M.D. LAB BLOOD ADD-ON Performing Organization Address City/State/ZIP Code Phon e Number [facility] - [address] (ABNORMAL) Thyroid Function Meagher (02/13/2018 6:56 AM CDT) [facility] gist Method Time Signature TSH, Sensitive 5.9 (H) 0.3 - 4.2 02/13/2018 [facility] mIU/L 8:13 AM CDT LABORATORIES - [facility] Specimen Anatomical Collection Method Collection Time Receive d Time (Source) Location / / Volume Laterality Blood 02/13/2018 6:56 AM 8 7:18 CDT AM CDT Dominique Mcgowan M.D. LAB BLOOD ADD-ON Performing Organization Address City/[facility]/ZIP Code Phon e Number [facility] - [address] documented in this encounter Visit Diagnoses Diagnosis Atrial Septal Defect Unspecified (HCC) Chronic Obstructive Pulmonary Disease (H CC) Lizy Danlos Syndrome documented in this encounter Care Teams Regional Merchandising Manager Relationship Specialty Start Date End Date Carolyn Garland APRN, C.N.P. PCP - General 02/28/17 01/10/18 documented as of this encounter
--- OUTSIDE RECORDS SUMMARY | 2022-08-29 12:16 | XMS_ITS | Encounter Summary ---
:1975 Author Organization [facility] Address [address] [place] [address] Care Team Providers Name Role Phone Unavailable Primary Care Provider Unavailable Encounter Details Date Type Department Care Team Description 11/30/2014 Hospital Encounter HX [facility] Adriana Pickens, BARRERA, C.N.P., D. N.P. [address] [place] [address] (Wo rk) Social History Tobacco [...] - Inhaled Oxygen Concentration - - Weight 84.3 kg (185 lb 13.6 oz) 11/30/2014 10:23 AM CDT Height 173 cm (5' 8.11) 11/30/2014 10:23 AM CDT Body Mass Index 28.17 11/30/2014 10:23 AM CDT documented in this encounter Medications at [...] spray nostril(s). documented as of this encounter Nursing Notes Myriam Rashid L.P.N. - 11/30/2014 10:23 AM CDT Nurse Only Documentation Nurse Only Documentation Entered On: 11/30/2014 10:24 CDT Performed On: 11/30/2014 10:23 CDT by MYRIAM RASHID Nurse Only Documentation Nurse Only Visit Documentation : patient here for a pre and post spirometry MYRIAM RASHID - 11/30/2014 10:23 CDT Vitals/Ht/Wt Height : 173 cm(Converted to: 5 ft 8 inch(es), 68 inch(es)) Actual Weight : 84.3 kg(Converted to: 185 lb 14 oz) Weight Source : Standing scale Dosing Weight Clinic : 84.3 kg Clinic BSA : 2.01 Body Mass Index : 28.17 kg/m2 MYRIAM RASHID - 11/30/2014 10:23 CDT [facility] POWER[facility] Document Id: [id number] CDT!10 documented in this encounter Plan of Treatment Not on filedocumented as of this encounter Visit Diagnoses Not on filedocumented in this encounter
--- OUTSIDE RECORDS SUMMARY | 2022-08-29 12:16 | XMS_ITS | Encounter Summary ---
:1975 Author Organization [facility] Address [address] [place] [address] Care Team Providers Name Role Phone Carolyn Garland APRN, C.N.P. Primary Care Provider [phone] Reason for Visit Reason Comments Communication Encounter Details Date Type Department Care Team Description 01/08/2018 Clinical Communication Department of Terrell Lara Communication Medicine, Vishal Saez APRN, C.N.PVicenta [facility], [address] [phone] [place], [place] (Work) [phone] Social History Tobacco Use Types Packs/Day Years Used Date Smoking Tobacco: Never Smokeless Tobacco: Never Alcohol Use Standard Drinks/Week Comments No 0 (1 standard drink = 0.6 oz pure alcoho l) Sex Assigned at Date Recorded Female 02/11/2018 8:36 AM CDT documented as of this encounter Miscellaneous Notes Telephone Encounter - Lilliana Kaba R.N. - 01/10/2018 10:57 AM CDT Spoke with pt who advised she did not seek emergency care, recommended by triage nurse, but symptomsresolved and she is feeling much better. Pt had no questions or concerns at this time. Telephone Encounter - Stephanie Hawkins L.P.N. - 01/08/2018 5:37 PM CDT Pts last visit with Adriana was 12/10/14, Adriana is not her current provider. Left msg for pt to return call. Telephone Encounter - Tamar Colón - 01/08/2018 2:44 PM CDT Pt is having abdominal pain and used to see Adriana and would like to talk with her about it. I did send her to triage and she does have an apt in [place] on Saturday, but would like a call back from Adriana ifpossible. She can be reached at [phone]. documented in this encounter Plan of Treatment Not on filedocumented as of this encounter Visit Diagnoses Not on filedocumented in this encounter Care Teams [employer] Art Teacher Relationship Specialty Start Date End Date Carolyn Garland APRN, C.N.P. PCP - General 02/28/17 01/10/18 documented as of this encounter
--- OUTSIDE RECORDS SUMMARY | 2022-08-29 12:16 | XMS_ITS | Encounter Summary ---
:1975 Author Organization [facility] Address [address] [place] [address] Care Team Providers Name Role Phone Carolyn Garland APRN, C.N.P. Primary Care Provider [phone] Reason for Referral Appointment Request (Routine) - Closed Specialty Diagnoses / Procedures Referred By Contact Refer red To Contact Laboratory Medicine Diagnoses Z00.00 (ICD-10-CM) - General Medical Examination Adult [facility] Procedures GLUCOSE, FASTING, S/P Referral ID Status Reason Start Date Expiration Date Visits Requ ested Visits Authorized [id number] Closed 11/12/2017 05/11/2018 1 1 ppointment Request (Routine) - Closed Specialty Diagnoses / Procedures Referred By Contact Refer red To Contact Laboratory Medicine Diagnoses na [facility] Procedures labs Clinic [address] [place] [phone] Phone: Fax: Referral ID Status Reason Start Date Expiration Date Visits Requ ested Visits Authorized [id number] Closed 11/12/2017 05/11/2018 1 1 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 Depression Major Recurrent Mild (HCC); Clinic, in [address] [place] Attention Deficit Disorder Inattentive [address] [phone] [place], [place] (Work) [phone] Social History Tobacco Use Types Packs/Day Years Used Date Smoking Tobacco: Never Smokeless Tobacco: Never Alcohol Use Standard Drinks/Week Comments No 0 (1 standard drink = 0.6 oz pure alcoho l) Sex Assigned at Date Recorded Female 02/11/2018 8:36 AM CDT documented as of this encounter Last Filed Vital Signs Vital Sign Reading Time Taken Comments Blood Pressure 123/74 10/21/2017 4:13 PM COATING MACHINE FEEDER Pulse 68 10/21/2017 4:13 PM COATING MACHINE FEEDER Temperature 36.4 ??C (97.5 ??F) 10/21/2017 4:13 PM COATING MACHINE FEEDER Respiratory Rate 16 10/21/2017 4:13 PM COATING MACHINE FEEDER Oxygen Saturation 95% 10/21/2017 4:13 PM COATING MACHINE FEEDER Inhaled Oxygen Concentration - - Weight 93.6 kg (206 lb 5.6 oz) 10/21/2017 4:13 PM COATING MACHINE FEEDER Height 176 cm (5' 9.29) 10/21/2017 4:13 PM COATING MACHINE FEEDER Body Mass Index 30.22 10/21/2017 4:13 PM COATING MACHINE FEEDER documented in this encounter Progress Notes Carolyn Garland, BARRERA, C.N.P. - 10/21/2017 4:00 PM CST SUBJECTIVE CHIEF COMPLAINT / REASON FOR VISIT General medical exam. HISTORY OF PRESENT ILLNESS Jose is a very pleasant 42-year-old female who comes into the clinic today for an annual physical. She denies any new medical concerns today. She completed a 3D mammogram at [place] in 2017 which wasnegative. She completed a partial hysterectomy in 2005 with intact ovaries. She has a current medical status consistent with asthma, mild depression and attention deficit disorder. She reports she has been ???out?? of her daily Breo inhaler for approximately 6 months. She reports she has been using her albuterol inhaler for symptom management related to shortness of breath. She reports the use of daily citalopram for symptom management related to depression. She also reports the use of Adderall only with ???work meetings?? related to concentration. She denies any known side effects related to theuse of her prescription medications. 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 She denies any concerns related to appetite, but reports her sleep is ???disturbed?? without the useof nightly trazodone. She reports she recently started on the Paleo diet and ???feels much better?? related to abdominal ???discomfort?? . She is here today for further evaluation. She has no other concerns today. 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 Non tobacco user. REVIEW OF SYSTEMS GENERAL: Denies extreme fatigue, unexplained weight loss/gain or concerns for depression, trouble concentrating or memory concerns. HEENT: Denies visual changes/disturbances, hearing changes/disturbances, difficulty chewing/swallowing. HEART: Denies palpitations, chest pain or shortness of breath withor without exertion. GI: She reports intermittent cramping with bowel movements bimonthly. She denies any blood in her stool. : Denies urgency, frequency, or burning with urination. MUSCULOSKELETAL: Denies joint pain or muscle fatigue. NEUROLOGICAL: Denies frequent headaches, dizziness or numbness/tingling in her upper or lower extremities. Current Outpatient Medications Medication Sig ??? albuterol [...] Bupropion GI intolerance ??? Erythromycin GI intolerance OBJECTIVE PHYSICAL EXAM BP 123/74 (BP Location: Left arm, Patient Position: Sitting, Cuff Size: Regular) Pulse 68 Temp 36.4 ??C (Temporal) Resp 16 Ht 176 cm Wt 93.6 kg SpO2 95% ? No BMI 30.22 kg/m?? Body mass index is 30.22 kg/m??. CONSTITUTIONAL: Alert and oriented. No acute distress. HEAD/EAR/NOSE/MOUTH/THROAT: Normocephalic/atraumatic. Canals patent, TMs normal. Oropharynx without lesion of mucosa. Pharyngeal rises symmetrically without exudate. LYMPH/NECK: No nodes, no thyromegaly. CARDIOVASCULAR: Regular rate and rhythm. No murmurs, gallops or rubs noted. RESPIRATORY: Clear to auscultation bilaterally. No expiratory wheeze. No accessory muscles of respiration noted. BREASTS: Soft breast tissue without predominant mass or nodularity. No nipple discharge. Nipples everted bilaterally. No axillary or supraclavicular adenopathy. GASTROINTESTINAL: Mid lower abdomen with mild tenderness to paplation. No guarding or rebound tenderness. No hepato-splenomegaly. No mass. Normal bowel sounds in all 4 quadrants. MUSCULOSKELETAL: No neurovascular compromise. No cyanosis, clubbing or edema. PELVIS: Deferred. Partial hysterectomy in 2005. NEUROLOGICAL: Cranial nerves II-VII grossly intact and symmetric. She ambulates with a steady gait. PSYCHIATRIC: Cooperative. Affect appropriate. ASSESSMENT / PLAN #1 General Medical Examination Adult Age-appropriate anticipatory guidance was provided. I ordered a lipid panel and fasting glucose to be completed in the near future. We will contact her with the results once completed. She will be due for a mammogram in 2019. She completed a partial hysterectomy in 2005. #2 Asthma Mild Intermittent With Environmental Exposure To Tobacco Smoke (HCC) Stable. I refilled her daily Breo prescription. #3 Depression Major Recurrent Mild (HCC) Stable. No medication refill required. #4 Attention Deficit Disorder Inattentive Stable. No medication refill required. #5 Abdominal pain At this time, I am unclear as to the etiology related to her lower mid abdominal discomfort. We discussed a potential colitis presentation. She was instructed to increase her non caffeine oral fluid intake and increase her fiber intake. We discussed a potential constipation etiology related to her intermittent abdominal discomfort. She was instructed to contact the clinic with worsening or no improvement in symptoms. All questions were answered. She left no acute distress. Carolyn Garland APRN, C.N.P. ING MACHINE FEEDER documented in this encounter Plan of Treatment Not on filedocumented as of this encounter Results Glucose, Fasting (11/16/2017 9:09 AM COATING MACHINE FEEDER) athologist Signature Glucose, 89 70 - 99 11/16/2017 [facility] Fasting, S mg/dL 10:12 AM [facility] LAB Specimen Anatomical Collection Method Collection Time Receive d Time (Source) Location / / Volume Laterality Blood (Blood, 11/16/2017 9:09 AM 11/17/19 9:09 Venous) COATING MACHINE FEEDER AM COATING MACHINE FEEDER Carolyn Garland APRN, C.N.P. LAB BLOOD NON ADD-ON Performing Organization Address City/State/ZIP Code Phon e Number [facility]- [id number] [place] [id number] [place] [address] LAB Lipid Panel (11/16/2017 9:09 AM COATING MACHINE FEEDER) athologist Signature Cholesterol, 194 mg/dL 11/16/2017 [facility] Total 10:12 AM [facility] LAB Comment: ----REFERENCE VALUE---- Desirable: < 200 Borderline high: 200 - 239 High: > or = 240 Triglycerides 73 mg/dL 11/16/2017 10:12 AM [facility] LAB Comment: ----REFERENCE VALUE---- Normal: <150 Borderline high: 150-199 High: 200-499 Very high: > or =500 Cholesterol, HDL, S 51 >=50 mg/dL 11/16/2017 10:12 AM [facility] Labs LAB Calculated LDL 128 mg/dL 11/16/2017 10:[address] [facility] LAB Comment: ----REFERENCE VALUE---- Desirable: <100 Above Desirable: 100-129 Borderline high: 130-159 High: 160-189 Very high: > or =190 Cholesterol, Non-HDL, 143 mg/dL 11/16/2017 10:12 A M COATING MACHINE FEEDER [facility] S LAB Comment: ----REFERENCE VALUE---- Desirable: <130 Above Desirable: 130-159 Borderline high: 160-189 High: 190-219 Very high: > or =220 Specimen Anatomical Collection Method Collection Time Receive d Time (Source) Location / / Volume Laterality Blood (Blood, 11/16/2017 9:09 AM 11/17/19 9:09 Venous) COATING MACHINE FEEDER AM COATING MACHINE FEEDER Carolyn Garland APRN, C.N.P. LAB BLOOD ADD-ON Performing Organization Address City/State/ZIP Code Phon e Number [facility]- [id number] [address] [facility] documented in this encounter Visit Diagnoses Diagnosis General Medical Examination Adult - Prim daniel Asthma Mild Intermittent With Environmen stephanie Exposure To Tobacco Smoke (HCC) Depression Major Recurrent Mild (HCC) Attention Deficit Disorder Inattentive documented in this encounter Care Teams Intraoperative Neuro Tech Relationship Specialty Start Date End Date Carolyn Garland APRN, C.N.P. PCP - General 02/28/17 01/10/18 documented as of this encounter
--- OUTSIDE RECORDS SUMMARY | 2022-08-29 12:16 | XMS_ITS | Encounter Summary ---
:1975 Author Organization [facility] Address [address] [place] [address] Care Team Providers Name Role Phone Rubi Tavares APRN, C.N.P., D.N.P. Primary Care Provider Encounter Details Date Type Department Care Team Description 01/22/2018 Orders Only Department of Family Rubi Tavares AP RN, Medicine, [place] C.N.P., D .N.P. Clinic, in [address] [phone] [place] [address] [place], [place] [phone] Social History Tobacco Use Types Packs/Day Years [...] on filedocumented in this encounter Care Teams Bowl Topper Relationship Specialty Start Date End Date Rubi Tavares APRN, C.N.P., PCP - General Family Medicine 04/21/19 D.N.P. [address] [place] [phone] documented as of this encounter
--- OUTSIDE RECORDS SUMMARY | 2022-08-29 12:17 | XMS_ITS | Encounter Summary ---
:1975 Author Organization [facility] Address [address] [place] [address] Care Team Providers Name Role Phone Unavailable Primary Care Provider Unavailable Encounter Details Date Type Department Care Team Description 07/14/[address] [facility] Bethany Renee M.D. [address] [place], [place] [phone] (Wo rk) Social History [...] of this encounter Progress Notes Leah Martini M.D. - 07/14/2013 9:30 AM CDT [id number] CLINIC ENCOUNTER CHIEF COMPLAINT: Left knee pain. [...] three children. 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 She does not smoke and rarely drinks [...] plans forthcoming. Leah Martini M.D. 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
--- OUTSIDE RECORDS SUMMARY | 2022-08-29 12:17 | XMS_ITS | Encounter Summary ---
:1975 Author Organization [facility] Address [address] [place] [address] Care Team Providers Name Role Phone Unavailable Primary Care Provider Unavailable Encounter Details Date Type Department Care Team Description 07/02/[address] [facility] Michael Veloz, N.P. [address] [place] [phone] (Wo rk) Social History Tobacco Use Types Packs/Day Years Used Date Smoking Tobacco: Never Assessed Sex Assigned at Date Recorded Female 02/11/2018 8:36 AM CDT documented as of this encounter Last Filed Vital Signs Vital Sign Reading Time Taken Comments Blood Pressure 120/73 07/02/2014 8:59 AM CDT Pulse 75 07/02/2014 8:59 AM CDT Temperature - - Respiratory Rate 18 07/02/2014 8:59 AM CDT Oxygen Saturation - - Inhaled Oxygen Concentration - - Weight - - Height 174 cm (5' 8.5) 07/02/2014 8:59 AM CDT Body Mass Index - - [...] documented as of this encounter Progress Notes Telma Veloz N.P. - 07/02/2014 8:43 AM CDT FM-ANA CHIEF COMPLAINT/REASON FOR VISIT 1. Allergies and nasal congestion. 2. Chronic lung disease. HISTORY OF PRESENT ILLNESS Alcon is a 38-year-old female who is here today for followup regarding some chronic issues that she has been having. She reports that since childhood and even into adulthood she has had difficulty withchronic runny nose, postnasal drip, irritation in her eyes and chronic sneezing. She is wondering what could be the cause of this, what could help improve these symptoms, as well as their effect on herchronic lung disease. 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 She notes that she was born at 32 weeks. She was a twin and her twin actually shortlyafter . She was on the ventilator for many weeks when she was first born, had many chronic lung infections as a child. She has had evaluation and consultation at [facility] and Pulmonology Department as well as Cardiology. She has had PFTs done to assess her lung function, with the last one being done most likely in 2012. She has had different treatments for her lung disease includingalbuterol, Advair, as well as a long-acting bronchodilator. She notes that although the Advair did seem to help her symptoms and her PFTs did improve, she had a lot of side effects from it and was not able to continue. Presently she only is using her rescue inhaler. She is wondering about other options that could be used to help not only with her allergies, but her chronic lung problems. We also took some time today to review Alcon's medical history, which is fairly complicated. She does have a history of ASD closure in 2005. This was done at [facility] also. For a time it was difficult to determine whether her fatigue, shortness of breath and the lack of stamina were related more to her heart condition versus her lungs. She notes that she has had some improvement in theseissues since having had her heart surgery, but she still continues to feel quite winded and has poortolerance for physical activity. Additionally, she has been diagnosed with fibromyalgia, as well as Lizy-Danlos syndrome. She reports that her priority is for getting some of these health conditions under better control and maximizing her health would include trying to improve her lung function, herallergies, and then develop a longer-term wellness plan. MEDICATIONS Reviewed. New prescriptions today include: Combivent inhaler 1 puff 4 times a day. Citalopram is increased to 20 mg once daily. Flonase nasal spray 1 spray both nostrils 2 times daily. ALLERGIES 1. Bupropion. 2. Erythromycin causes upset stomach. PAST MEDICAL/SURGICAL HISTORY PAST MEDICAL HISTORY: 1. ADD. 2. Bronchopulmonary dysplasia. 3. Depression. 4. ASD, status post closure with an Amplatzer occluder in 2005. 5. Chronic sinus issues. 6. Generalized anxiety disorder. 7. PTSD. 8. Frequent pneumonia. 9. Fibromyalgia. 10. Dysphasia. 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 12. Insomnia. 13. Vitamin D deficiency. 14. Degenerative disk disease of cervical spine. PAST SURGICAL HISTORY: 1. Tubal ligation. 2. Lipoma removed from chest wall in 2011. 3. ASD closure in 2005. 4. Left lateral meniscectomy in 2012. 5. Hysterectomy. This was secondary to chronic abdominal pain. 6. D and C. This was secondary to a missed at age 19 that subsequently led to significant apelvic infection. FAMILY HISTORY She notes that her dad's medical history is somewhat unknown as he is adopted. SOCIAL HISTORY Alcon is . 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 She has 3 children that are teenagers. She is a nonsmoker. VITAL SIGNS Temp 36, pulse 75, respirations 18, blood pressure 120/73, O2 saturation 96% on room air. PHYSICAL EXAMINATION Deferred. IMPRESSION/REPORT/PLAN 1. Chronic lung disease, bronchopulmonary dysplasia. 2. Chronic rhinitis. 3. History of Lizy-Danlos syndrome. 4. Fibromyalgia. 5. History of vitamin D deficiency. PLAN: 1. Prioritizing Alcon's desires regarding her health, we decided to start with addressing her lungs,which a Combivent inhaler has been prescribed. Additionally, we discussed that improving her rhinitis may also ultimately improve her lung conditions and I have prescribed Flonase nasal spray. She can u se this spray in both nostrils 2 times daily. We will plan on reassessing where she is at in the next 4 to 6 weeks in regard to these medication changes. Upon further review of her records, it does appear in 2006 and again in 2013 for different reasons she has had CTs that evaluated her sinuses that noted she had a septal deformity on her CT scan of 2006 as well as membrane thickening and again in 2013 she had some inflammation noted in her left ethmoid sinus. Potentially if continues to have issueswith the nasal drainage we could refer her to Ear, Nose and Throat for further evaluation of her symptoms. 2. Discussed with Alcon that per her records at [facility], it does seem that she would need to be seen by Cardiology in August 29 for followup regarding previous heart surgery. 3. Fibromyalgia. We discussed things that could potentially help these symptoms would include an anti-inflammatory diet, which a handout was provided on this, as well as a probiotic supplement to be taken daily. Additionally, I would like at her convenience to have a ferritin level, vitamin D and TSH rechecked. Plan will be to see how Alcon is doing over the next 4 to 6 weeks, sooner with anymore concerns. Also will plan at some point to put together a lifestyle plan to help improve exercise, aid inweight loss and improve nutrition. Ready to learn. No apparent learning barriers were identified. Learning preferences include listening. Explained diagnosis and treatment plan. Patient/Child/Caregiver expressed understanding of the content. Leyda Mckeon/brayden Electronically Signed By: TELMA VELOZ NP On: 07/27/2014 12:22 PM Source: [facility] [id number] Document Id: [id number] [employer] documented in this encounter Miscellaneous Notes Miscellaneous - Adelaide Nava RVicentaN. - 08/27/2014 12:30 PM CST samanta Document Contains Addenda Addendum by ADELAIDE NAVA RN on 01 September 2014 13:16:50 [employer] noted Addendum by JENNA PITTMAN III, MD on 01 September 2014 13:10:56 [employer] From: JENNA PITTMAN III, MD Sent: 09/01/2014 13:10:56 [employer] Subject: RE:trazadone Approved with modifications: Order:traZODone (traZODone 50 mg oral tablet) 100 mg PO Bedtime 2 tabs for a total of 100mg at bedtime Qty: 60 tab(s) Refills: 5 Substitutions Allowed Route To Pharmacy - [facility] Signed by JENNA PITTMAN III, MD 09/01/2014 13:10:50 From: ADELAIDE NAVA RN To: JENNA PITTMAN III, MD; ADELAIDE NAVA RN; Sent: 08/27/2014 12:30:49 [employer] Subject: trazadone On hold pending signature Order:traZODone (traZODone 50 mg oral tablet) 100 mg PO Bedtime 2 tabs for a total of 100mg at bedtime Qty: 60 tab(s) Refills: 6 Substitutions Allowed Route To Pharmacy - [facility] 07/02/14 07/31/14 Source: [facility] POWERCHART Document Id: [id number] Electronically signed by Jennifer, [facility] Packaging Machine Operator [id number] at 02/12/2017 12:10 AM CDT Miscellaneous - Lilliam Molina, L.P.N. - 07/02/2014 8:59 AM CDT Adult Technical Supervisor Intake/History Adult Technical Supervisor Intake/History Entered On: 07/02/2014 9:05 CDT Performed On: 07/02/2014 8:59 CDT by LILLIAM MOLINA LPN Intake Chief Complaint : allergies, nasal ,congestion Temperature Core : 36 DegC(Converted to: 96.8 DegF) (LOW) Peripheral Pulse Rate : 75 /min Respiratory Rate : 18 /min Heart Rhythm : Regular Systolic Blood Pressure : 120 mmHg Diastolic Blood Pressure : 73 mmHg NIBP Mean : 89 mmHg BP Location : Right upper extremity Blood Pressure Cuff Size : Large SpO2 : 96 % Oxygen Therapy : Room air Height : 174 cm(Converted to: 5 ft 9 inch(es), 69 inch(es)) Weight Source : Other: no wt taken LILLIAM MOLINA [facility] 07/02/2014 8:59 CDT General Info Information Given By : Patient Languages : Cymraes Is Patient Female and 13-50 no hysterectomy : No LILLIAM MOLINA [facility] 07/02/2014 8:59 CDT Subjective Pain Symptoms : No LILLIAM MLOINA [facility] 07/02/2014 8:59 CDT Dependent Habits Tobacco Use/Currently Using : No Exposure to Tobacco Smoke : Care provider denies smoking in home Smoking Status : Never smoker LILLIAM MOLINA [facility] 07/02/2014 8:59 CDT Tobacco Use Grid Last Use : never LILLIAM MOLINA [facility] 07/02/2014 8:59 CDT Alcohol Use : Yes LILLIAM MOLINA [facility] 07/02/2014 8:59 CDT Caffeine Use Grid Caffeine Use : Current Type : Coffee Frequency : Occasionally LILLIAM MOLINA [facility] 07/02/2014 8:59 CDT Recreational Drug Use Grid Drug Use : None LILLIAM MOLINA [facility] 07/02/2014 8:59 CDT Source: [employer] Document Id: [id number]!38 documented in this encounter Plan of Treatment Not on filedocumented as of this encounter Visit Diagnoses Not on filedocumented in this encounter
--- OUTSIDE RECORDS SUMMARY | 2022-08-29 12:17 | XMS_ITS | Encounter Summary ---
:1975 Author Organization [facility] Address [address] [place] [address] Care Team Providers Name Role Phone Unavailable Primary Care Provider Unavailable Encounter Details Date Type Department Care Team Description 08/12/2013 Hospital Encounter HX [facility] Bethany Renee M.D. [address], [place] [phone] (Wo rk) Social History [...] encounter Progress Notes Leah Martini M.D. - 08/12/2013 9:00 AM CST [id number] CLINIC ENCOUNTER DATE OF SURGERY: August 04, 2013 PROCEDURE PERFORMED: Left knee arthroscopic lateral meniscal saucerization, left knee arthroscopic partial lateral meniscectomy anterior horn. INTERVAL HISTORY: Miss Zamora returns today for her first postoperative visit. She is approximately eight days out from time of surgery. The patient had a little bit of a mariella course postoperatively, as she had some issues with headaches and nausea and vomiting that persisted through the evening of postoperative day zero. This required a trip to the emergency department at [place] near her home. She reportedly was given [...] two days after surgery. 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 Leah Martini M.D. Janee cc: Source: TAYLOR [email or web address] Document Id: [id number] documented in this encounter Plan of Treatment Not on filedocumented as of this encounter Visit Diagnoses Not on filedocumented in this encounter Additional Health Concerns Assessment Noted Time PHQ-9 Depression Total Score: 8 09/18/2012 7:41 AM [facility] documented as of this encounter
--- OUTSIDE RECORDS SUMMARY | 2022-08-29 12:17 | XMS_ITS | Encounter Summary ---
:1975 Author Organization [facility] Address [address] [place] [address] Care Team Providers Name Role Phone Unavailable Primary Care Provider Unavailable Encounter Details Date Type Department Care Team Description 08/04/2013 Hospital Encounter HX [facility] [place] [facility] Jeremie Dubois M.D. [id number] [place] [address] [phone] (Wo rk) Social History Tobacco Use Types Packs/Day Years Used Date Smoking Tobacco: Never Assessed Sex Assigned at Date Recorded Female 02/11/2018 8:36 AM CDT documented as of this encounter Last Filed Vital Signs Vital Sign Reading Time Taken Comments Blood Pressure 137/79 08/04/2013 9:53 PM CONVERTING OPERATOR Pulse 93 08/04/2013 9:53 PM CONVERTING OPERATOR Temperature - - Respiratory Rate 18 08/04/2013 9:53 PM CONVERTING OPERATOR Oxygen Saturation - - Inhaled Oxygen Concentration - - Weight - - Height 173 cm (5' 8.11) 08/04/2013 8:33 PM CONVERTING OPERATOR Body Mass Index - - documented in this encounter Discharge Summaries Nataliia Gonsalves RVicentaN. - 08/04/2013 10:36 PM CST ED Discharge Instructions [id number] [place] [address] Name: CHRISTOPHER TY Date of : 1975 12:00 AM Visit Date: 08/04/2013 8:28 PM [facility] Number: [id number] Address: [address] [facility] [id number] Primary Care Provider: PCP, ELSEWHERE IMPORTANT: [facility] in [place] would like to thank you for allowing us to assist you with your healthcare needs. The following includes patient education materials and informationregarding your injury/illness. Chief Complaint: Vomiting; vomiting after surgery Follow-Up Instructions: With: Address: When: ELSEWHERE PCP In 2 days 08/06/2013 Comments: With: Address: When: FOLLOW UP WITH PC PROVIDER IF NEW SYMPTOMS DEVELOP Within As Needed Comments: Patient Education Materials: [id number] Lumbar Puncture A lumbar puncture is also called a spinal tap. A lumbar puncture may be used to look for problems inyour brain, spinal cord, and related structures. Spinal fluid is withdrawn below the spinal cord. What Is a Lumbar Puncture? A needle is used to remove and test cerebrospinal (spinal) fluid from the sac that contains your spinal cord. The spinal cord runs through most of your spine, and carries messages between your brain and the rest of your body. A lumbar puncture is done near the base of your spine. The needle enters thesac but does not touch the spinal cord. There is a risk of headache and backache, and a very slight risk of bleeding or infection. But the benefits of a lumbar puncture far outweigh the risks. Before Your Lumbar Puncture Prepare for your lumbar puncture as instructed. After you check in, you will need to sign a form stating that the procedure has been explained to you. If you have questions, be sure to ask them before you sign the form. You may also be asked to put on a hospital gown. Your procedure will take 30-60 minutes. But allow extra time to check in. For your safety and the success of your procedure, tell the doctor or nurse if you: Have any bleeding disorders Take blood thinners or other medications, including aspirin Have any immune system problems Have had any back surgery Are allergic to medications or iodine My next appointment is: ?? [phone] Miranda Weber, [address] [place] [address], [place] [address]. All rights reserved. This information is not intended as a substitute for professional medical care. Always follow your healthcare professional's instructions. [id number] HEADACHE After Spinal Tap (No Patch) Spinal fluid fills the space around the brain and spinal cord. This fluid acts like a cushion. During a spinal tap procedure, a needle is passed through the membrane that surrounds the spinal canal. This allows the doctor to remove a small sample of spinal fluid. Normally, as the needle is removed, the puncture hole seals off and no more fluid comes out. However, sometimes the hole does not seal properly and spinal fluid leaks into the nearby tissues. If there is a loss of too much spinal fluid from a leak at the puncture site, the spinal fluid pressure goes down and a headache occurs. This headache may be mild or severe. The pain is often worse when you sit or stand and gets better or goes away when you lie down. There may also be dizziness, nausea and blurred vision. The headache usually goes away within 24 hours. No treatment is needed unless the headache is very severe or lasts longer than 24 hours. HOME CARE: ?? Once you get home, rest lying down for 12 hours. Avoid sitting or standing during that time as much as possible. It is okay to get up to eat and go to the bathroom for short periods of time. ?? Drink extra fluids for the next 24 hours. This will help the body produce more spinal fluid to replace what was lost. Adults should drink at least 12 eight-ounce glasses of fluids in 24 hours. ?? Caffeine can help this type of headache. Unless told otherwise, you may drink coffee or another caffeinated drink. ?? If you were given medicine for nausea, take it as directed. FOLLOW UP with your doctor, or as advised by our staff if the headache is not better within the next24 hours. GET PROMPT MEDICAL ATTENTION if any of the following occur: ?? Headache remains severe for more than a few hours after the procedure ?? Headache gets worse with sitting or standing ?? Vomiting repeatedly (unable to keep liquids down) ?? Numbness or tingling of the legs ?? Unable to pass urine Bleeding or pain at the injection site ?? [id number] [facility], [address] [place] [address], [place] [address]. All rights reserved. This information is not intended as a substitute for professional medical care. Always follow your healthcare professional's instructions. ED Tests and Procedures: Order Status Discharge Prescriptions & Home Medications: Medication/Strength Dose Route Frequency Indications/Special Instructions/Comments/Notes ondansetron (Zofran 4 mg oral tablet) 4 mg Oral every 8 hours as needed for Nausea NEEDED FOR NAUSEA oxyCODONE-acetaminophen (Percocet 5/325 oral tablet) 1 tab(s) Oral every 6 hours albuterol (albuterol CFC free 90 mcg/inh inhalation aerosol) 2 puff(s) Inhalation every 4 hours as needed for Shortness of breath / Wheezing Bronchopulmonary dysplasia traZODone (trazodone 100 mg oral tablet) 200 mg Oral once a day albuterol (albuterol) 1-2 puffs Inhalation as needed Comment: Attention: If you have any medications at home not on this list, DO NOT take them until you contact your provider for clarification. Medication Reconciliation: Reconciliation is a process of identifying the most accurate list of all medications a patient is taking - including name, dosage, frequency, and route - and using this list to provide to the patient information about how to take those medications. CHRISTOPHER TY or imani has reviewed the home medications you have listed with us. Review the following instructions: You have NOT received any prescriptions and you have told us you are not currently taking any home medications You have NOT received any prescriptions. You have been provided a discharge medications list and you may CONTINUE taking your medications as previously prescribed by your regular providers. You have received the listed prescriptions and BEGIN all listed prescriptions as directed. Since you have listed no home medications, please check with your family doctor if you are taking any other medications. You have received the listed prescriptions and BEGIN all listed prescriptions as directed. Youhave been provided a discharge medications list and you may CONTINUE all home medications as previously prescribed by your regular providers. You have received the listed prescriptions and BEGIN all listed prescriptions as directed. Youhave been provided a discharge medications list. The following CHANGES have been made to your medication list; Otherwise, CONTINUE all home medications as previously prescribed by your regular provider. IMPORTANT: We examined and treated you today [...] arrange a ride home with a responsible democrat. I, CHRISTOPHER TY , or responsible democrat have received this information and my questions have been answered. I have discussed any challenges I see with this plan with the nurse or physician. Patient Signature or Responsible Democrat/Relationship Date Time Provider Signature Date Time Medication Reconciliation: Reconciliation is a process of identifying the most accurate list of all medications a patient is taking - including name, dosage, frequency, and route - and using this list to provide to the patient information about how to take those medications. CHRISTOPHER TY or designee has reviewed the home medications you have listed with us. Review the following instructions: You have NOT received any prescriptions and you have told us you are not currently taking any home medications You have NOT received any prescriptions. You have been provided a discharge medications list and you may CONTINUE taking your medications as previously prescribed by your regular providers. You have received the listed prescriptions and BEGIN all listed prescriptions as directed. Since you have listed no home medications, please check with your family doctor if you are taking any other medications. You have received the listed prescriptions and BEGIN all listed prescriptions as directed. Youhave been provided a discharge medications list and you may CONTINUE all home medications as previously prescribed by your regular providers. You have received the listed prescriptions and BEGIN all listed prescriptions as directed. Youhave been provided a discharge medications list. The following CHANGES have been made to your medication list; Otherwise, CONTINUE all home medications as previously prescribed by your regular provider. IMPORTANT: We examined and treated you today [...] arrange a ride home with a responsible democrat. I, CHRISTOPHER TY , or responsible democrat have received this information and my questions have been answered. I have discussed any challenges I see with this plan with the nurse or physician. Patient Signature or Responsible Democrat/Relationship Date Time Provider Signature Date Time This document has images extracted. Please consider using [employer] for all your patient education needs. Source: [facility] POWERCHART Document Id: [id number] ERTING OPERATOR Nataliia Gonsalves R.N. - 08/04/2013 10:36 PM CST ED Depart Summary [facility] Emergency Department Clinical Discharge Summary PERSON INFORMATION Name CHRISTOPHER TY JOSE ELIAS Age 37 Years 1975 12:00 AM Sex Female Language Micronesian PCP PCP, ELSEWHERE Marital Status Visit Id Visit Reason Vomiting; vomiting after surgery Specialty Enc Type Emergency Med Service Emergency Medicine Referred by Track Group [place] [facility] Discharge 08/04/2013 10:36 PM Tracking Id [id number] Checkout 08/04/2013 10:36 PM Checkin 08/04/2013 8:28 PM Acuity 3 -Urgent Dispo Type * Discharged to Home or Self Care Arrival 08/04/2013 8:28 PM Reg Status LOS 000 02:08 Address: [address] [place] [phone] Comment: PROVIDER INFORMATION Provider Role Provider Contact Time NATALIIA GONSALVES LABORER [employer] Nurse 08/04/13 20:32 RENATA DUBOIS MD ED Provider 08/04/13 21:34 DIAGNOSIS Headache Comment: PATIENT EDUCATION INFORMATION Instructions: Lumbar Puncture; HEADACHE After Spinal Tap (No Patch) Follow up: With: Address: When: ELSEWHERE PCP In 2 days 08/06/2013 Comments: With: Address: When: FOLLOW UP WITH PC PROVIDER IF NEW SYMPTOMS DEVELOP Within As Needed Comments: Source: [facility] POWERCHART Document Id: [id number] ERTING OPERATOR documented in this encounter Medications at Time [...] documented as of this encounter Nursing Notes Nataliia Gonsalves R.N. - 08/04/2013 10:17 PM CST intact Pt was ambulated to the bathroom per one assist, voided good amount, yellow, clear urine, and had no problems ambulating back to room. Darryl wrap intact over left knee and lower leg. Pt sitting up in bed eating saltine crackers and sipping on lemon white earth soda. States crackers taste so good and she is feeling much better. Dr. Dubois in and spoke with pt and spouse. Source: [facility] [employer] Document Id: [id number] ERTING OPERATOR documented in this encounter ED Notes Nataliia Gonsalves R.N. - 08/04/2013 10:32 PM CST ED Disposition Summary ED Disposition Summary Entered On: 08/04/2013 22:33 CONVERTING OPERATOR Performed On: 08/04/2013 22:32 CONVERTING OPERATOR by NATALIIA GONSALVES RN ED Disposition Summary Accompanied By : Spouse Mode of Discharge : Ambulatory Transportation : Private vehicle Discharge From ED With : Home Med List, Other: zofran meds from [employer] Discharge Instructions Given to Patient : Yes Patient Status at Discharge from ED : Improved NATALIIA GONSALVES RN - 08/04/2013 22:32 CONVERTING OPERATOR Source: [facility] [employer] Document Id: [id number] CONVERTING OPERATOR!8 ERTING OPERATOR Nataliia Gonsalves R.N. - 08/04/2013 10:28 PM CST ED Treatments and Procedures ED Treatments and Procedures Entered On: 08/04/2013 22:28 CONVERTING OPERATOR Performed On: 08/04/2013 22:28 CONVERTING OPERATOR by NATALIIA GONSALVES RN Peripheral IV Peripheral IV Assess/Intervention Grid Peripheral IV #1 IV Activity : Start, Discontinue Number of Attempts : 1 Date of Insertion : 08/04/2013 CONVERTING OPERATOR Laterality : Right Catheter Size : 20 Catheter Type : Protective Comments (Comment: IV discontinued with cath intact [NATALIIA GONSALVES RN - 08/04/2013 22:28 CONVERTING OPERATOR] ) NATALIIA GONSALVES RN - 08/04/2013 22:28 CONVERTING OPERATOR Source: [facility] [employer] Document Id: [id number] CONVERTING OPERATOR!10 ERTING OPERATOR Nataliia Gonsalves R.N. - 08/04/2013 10:19 PM CST ED Nurse Reassess ED Nurse Reassess Entered On: 08/04/2013 22:21 CONVERTING OPERATOR Performed On: 08/04/2013 22:19 CONVERTING OPERATOR by NATALIIA GONSALVES RN Pain Assessment Pain Symptoms : Yes NATALIIA GONSALVES RN - 08/04/2013 22:19 CONVERTING OPERATOR /OB Reassess Patient Stated Symptoms : None Urine Description : Clear Urine Color : Yellow NATALIIA GONSALVES RN - 08/04/2013 22:19 CONVERTING OPERATOR Incision/Wound Incision/Wound Care Grid Activity : Assessed Type : Surgical incision Location : Knee Laterality : Left Comment : Darryl wrap intact over left knee and lower leg NATALIIA GONSALVES RN - 08/04/2013 22:19 CONVERTING OPERATOR Source: [employer] Document Id: [id number] CONVERTING OPERATOR!15 ERTING OPERATOR Nataliia Gonsalves R.N. - 08/04/2013 9:51 PM CST ED Treatments and Procedures ED Treatments and Procedures Entered On: 08/04/2013 21:32 CONVERTING OPERATOR Performed On: 08/04/2013 21:51 CONVERTING OPERATOR by NATALIIA GONSALVES RN Peripheral IV Peripheral IV Assess/Intervention Grid Peripheral IV #1 IV Activity : Start Number of Attempts : 1 Date of Insertion : 08/04/2013 CONVERTING OPERATOR Laterality : Right Catheter Size : 20 Catheter Type : Protective Site Condition : No complications Drainage Description : None Dressing/ Activity : Dry, Intact, Transparent Flow/ Patency : No complications IV Equipment/Supplies : Extension, set, Pump, infusion NATALIIA GONSALVES RN - 08/04/2013 21:31 CONVERTING OPERATOR Source: [employer] Document Id: [id number] CONVERTING OPERATOR!15 ERTING OPERATOR Nataliia Gonsalves R.N. - 08/04/2013 9:51 PM CST ED Pain Assessment ED Pain Assessment Entered On: 08/04/2013 21:53 CONVERTING OPERATOR Performed On: 08/04/2013 21:51 CONVERTING OPERATOR by NATALIIA GONSALVES RN Pain Assessment Pain Symptoms : Yes NATALIIA GONSALVES RN - 08/04/2013 21:51 CONVERTING OPERATOR Pain Pain Assessment Grid Pain 1 Pain 2 Location : Head Knee Laterality : Bilateral Left Intensity : 7 2 Time Pattern : Constant Constant Onset : Gradual Gradual Pain Radiation : No No Interventions : Medications Medications Comments (Comment: pt taking ice chips n states the medicine is finally starting to take effect [NATALIIA GONSALVES RN - 08/04/2013 21:51 CONVERTING OPERATOR] ) NATALIIA GONSALVES RN - 08/04/2013 21:51 CONVERTING OPERATOR NATALIIA GONSALVES RN - 08/04/2013 21:51 CONVERTING OPERATOR Source: [facility] [employer] Document Id: [id number] CONVERTING OPERATOR!21 ERTING OPERATOR Nataliia Gonsalves R.N. 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 ; Last Updated: 06/01/2011 16:16CDT ; Life Cycle Date: 06/01/2011 ; Life Cycle Status: Active ; Responsible Provider: JENNA PITTMAN III, MD; Vocabulary: ICD-9-CM COPD (SNOMED CT :80557970 ) Name of Problem: COPD ; Onset Date: 2000 ; Recorder: MATIAS MCDUFFIE LPN; Confirmation: Confirmed ; Classification: Nursing ; Code: 60030611 ; Contributor System: [employer] ; Last Updated: 06/01/2011 16:09 CDT ; Life Cycle Date: 06/01/2011 ; Life Cycle Status: Active ; Responsible Provider: MATIAS MCDUFFIE LPN; Vocabulary: SNOMED CT Diagnoses(Active) Headache Date: 08/04/2013 ; Diagnosis Type: Reason For Visit ; Confirmation: Complaint of ; ClinicalDx: Headache ; Classification: Medical ; Clinical Service: Emergency medicine ; Code: PNED ; Probability: 0 ; Diagnosis Code: [id number] Vomiting Date: 08/04/2013 ; Diagnosis Type: Reason For Visit ; Confirmation: Complaint of ; ClinicalDx: Vomiting ; Classification: Medical ; Clinical Service: Emergency medicine ; Code: PNED ; Probability: 0 ; Diagnosis Code: [id number] Triage Information Given By : Patient, Spouse Accompanied By : Spouse Mode of Arrival ED : Private vehicle, Ambulatory Track : Medical Languages : Micronesian Treatments Prior to Arrival : None NATALIIA GONSALVES RN - 08/04/2013 21:43 CONVERTING OPERATOR Pain Assessment Pain Symptoms : Yes NATALIIA GONSALVES RN - 08/04/2013 21:43 CONVERTING OPERATOR Respiratory Airway : Patent Respirations : Unlabored Respiratory Pattern : Regular Oxygen Therapy : Room air NATALIIA GONSALVES RN - 08/04/2013 21:43 CONVERTING OPERATOR Cardiovascular Heart Rhythm : Regular Skin Color : Normal for ethnicity Skin Description : Dry Skin Temperature : Warm NATALIIA GONSALVES RN - 08/04/2013 21:43 CONVERTING OPERATOR Neurological Last Well Time Known : Yes Last Known Well Time : 08/04/2013 8:00 CONVERTING OPERATOR Level of Consciousness : Alert Orientation : Oriented x 3 Characteristics of Speech : Clear Neuro Patient Stated Symptoms : None Gait : Steady Swallowing Difficulty/Aspiration Risk : None Loss of Consciousness : No NATALIIA GONSALVES RN - 08/04/2013 21:43 CONVERTING OPERATOR ED Psychosocial Affect/Behavior : Calm, Cooperative, Appropriate Domestic Abuse Concerns : None Emotional Support Available : Yes NATALIIA GONSALVES RN - 08/04/2013 21:43 CONVERTING OPERATOR Gastrointestinal Nutrition ED : Adequate GI Detailed Assessment : Yes NATALIIA GONSALVES RN - 08/04/2013 21:43 CONVERTING OPERATOR GI Detailed GI Patient Stated Symptoms : Vomiting BEATRIZ GONSALVESKaren Melchor RN - 08/04/2013 21:43 CONVERTING OPERATOR /OB Assessment Patient Stated Symptoms : None NATALIIA GONSALVES Ruiz RN - 08/04/2013 21:43 CONVERTING OPERATOR Musculoskeletal Fall Prevention Education Provided : NA BEATRIZ GONSALVESKaren Melchor RN - 08/04/2013 21:43 CONVERTING OPERATOR Social Habits Tobacco Use/Currently Using : No Exposure to Tobacco Smoke : Care provider denies smoking in home Smoking Status : Never smoker BEATRIZ GONSALVESKaren Melchor RN - 08/04/2013 21:43 CONVERTING OPERATOR Alcohol Use Grid Alcohol Use : No MAJOR BEATRIZKaren Melchor RN - 08/04/2013 21:43 CONVERTING OPERATOR Recreational Drug Use Grid Drug Use : None NATALIIA GONSALVES Ruiz RN - 08/04/2013 21:43 CONVERTING OPERATOR Source: [facility] [employer] Document Id: [id number] CONVERTING OPERATOR!53 ERTING OPERATOR Renata Dubois M.D. - 08/04/2013 8:44 PM CST Headache, Vomiting Patient: CHRISTOPHER TY Age: 37 years Sex: Female : 1975 Author: RENATA DUBOIS MD Attachments: None Associated Diagnosis: Headache 784.0; Nausea 787.02; Vomiting 787.03 Basic Information Time seen: Date & time 08/04/2013 20:48:00, Immediately upon arrival. History source: Patient. Arrival mode: Private vehicle. Additional information: Chief Complaint from Nursing Triage Note : Chief Complaint Description. 08/04/2013 20:33 CONVERTING OPERATOR Chief Complaint Description had knee scope in [facility] today, vomiting, can't keep anything down, has headache, pt spoke with nurse n premix operator concentrate in and was told to come here History of Present Illness The patient presents with nausea and vomiting. The onset was 5 hours ago. The course/duration of symptoms is constant and worsening. The character of symptoms is clear. The degree at present is severe.The exacerbating factor is movement. There are relieving factors including rest and lying down. Riskfactors consist of recent surgery, Patient had a knee scope done under spinal Anaesthesia in [facility] and was discharged home at about 2 PM. and Symptoms of nausea and vomiting started at about 4 PM and had about three bout of vomiting since then.. Therapy today: prescription medications including Percocet and Patient took Percocet as prescribed for her pain after the surgery. She had a kn ee surgery done. No leakage at the spinal tap site.. Associated symptoms: headache, denies abdominalpain, denies diarrhea, denies fever, denies chills, denies chest pain, denies shortness of breath, denies dizziness, denies back pain and denies blood in stool. The patient presents with headache. The onset was 1 hours ago. The course/duration of symptoms is constant and worsening. The character of symptoms is pressure and throbbing. The degree at present is severe. There are exacerbating factors including light and noise. Prior episodes: none. Therapy today:prescription medications including Percocet. and Patient threw up immediately after taking the Percocet.. Preceding symptoms: denies visual disturbance. Associated symptoms: nausea, vomiting, denies altered vision, denies fever and denies chills. Review of Systems Constitutional symptoms: No fever, no chills, no sweats or no weakness. Skin symptoms: No jaundice, no rash or no pruritus. Eye symptoms: Vision unchanged. ENMT symptoms: Ear pain. Respiratory symptoms: No shortness of breath, no orthopnea, no cough, no hemoptysis or no sputum production. Gastrointestinal symptoms: Nausea and vomiting, but no abdominal pain or no diarrhea. Genitourinary symptoms: No dysuria, no hematuria or no vaginal bleeding. Health Status Allergies: . Allergic Reactions (Selected) Severity Not Documented Erythromycin- Stomach upset, and vomiting. Past Medical/ Family/ Social History Medical history: . 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 Surgical history: . Excision of lipoma ([id number]) in 2011 at 36 Years. Comments: 08/13/2012 14:29 - MARYBEL MCLEOD on abdomen Heart - arterial implant ([id number]) in 2005 at 30 Years. Comments: 06/01/2011 16:10 - MATIAS MCDUFFIE LPN done at [facility] H/O: hysterectomy ([id number]) in 2005 at 30 Years. Comments: 06/01/2011 16:09 - MATIAS MCDUFFIE SEASONAL RECRUITER just uterus Family history: . No family history items have been selected or recorded. Physical Examination Vital Signs: Vital Signs, 08/04/2013 20:33 CONVERTING OPERATOR Temperature Core 36.3 DegC LOW Peripheral Pulse Rate 89 /min Respiratory Rate 18 /min SpO2 98 % Systolic Blood Pressure 145 mmHg HI Diastolic Blood Pressure 80 mmHg Mean Arterial Pressure 102 mmHg BP Location Right upper Measurements, 08/04/2013 20:33 CONVERTING OPERATOR Height 173 cm Height Source Estimated Estimated Weight 90.9 kg SpO2. 08/04/2013 20:33 CONVERTING OPERATOR SpO2 98 % General: Alert and moderate distress. Skin: Warm and dry. Head: Normocephalic and atraumatic. Neck: Supple, trachea midline, no tenderness and no JVD. Eye: Pupils are equal, round and reactive to light, extraocular movements are intact, normal conjunctiva and vision unchanged. Ears, nose, mouth and throat: Tympanic membranes clear, oral mucosa moist and no pharyngeal erythemaor exudate. Cardiovascular: Regular rate and rhythm and No murmur. Respiratory: Lungs are clear to auscultation, respirations are non-labored, breath sounds are equal and Symmetrical chest wall expansion. Chest wall: No tenderness and No deformity. Back: Nontender. Musculoskeletal: Normal ROM. normal strength. no tenderness. no swelling. Gastrointestinal: Soft, Non distended, Tenderness: Negative, Guarding: Negative, Rebound: Negative, Bowel sounds: Normal, Organomegaly: Negative, Trauma: Negative, Mass: Negative, Scars: Negative, THE SPINAL TAP SITE , THE BAND AID IS ON , NO SIGNS OF LEAKAGE OF SPINAL FLUID. and Signs: None. Genitourinary Neurological: Alert and oriented to person, place, time, and situation, No focal neurological deficit observed, CN II-XII intact, normal sensory observed, normal motor observed, normal speech observed and normal coordination observed. Lymphatics: No lymphadenopathy. Psychiatric: Cooperative. Medical Decision Making OrdersLaunch Orders, Pharmacy: Toradol (Order Processing): 30 mg, IV Push, OnceLaunch Orders, Pharmacy: Zofran (Order Processing): 4 mg, IV Push, Once[facility] Orders. Pharmacy: NS 500 mL Bolus and Continuous (ED Only) 1000 mL (Order Processing): 500 mL/hr, IV Reexamination/ Reevaluation Vital signs results included from flowsheet : Vital Signs 08/04/2013 20:33 CONVERTING OPERATOR Temperature Core 36.3 DegC LOW Peripheral Pulse Rate 89 /min Respiratory Rate 18 /min SpO2 98 % Systolic Blood Pressure 145 mmHg HI Diastolic Blood Pressure 80 mmHg Mean Arterial Pressure 102 mmHg BP Location Right upper Course: improving. Pain status: decreased. Assessment: exam unchanged. Impression and Plan Diagnosis Headache 784.0 (Discharge, Emergency medicine, Medical) Diagnosis Nausea 787.02 (Discharge, Emergency medicine, Medical) Vomiting 787.03 (Discharge, Emergency medicine, Medical) Diagnosis SPINAL HEADACHE Plan Condition: Improved, Stable. Disposition: Discharged: to home. Patient was given the following educational materials: Lumbar Puncture, HEADACHE After Spinal Tap (No Patch). Follow up with: ELSEWHERE PCP In 2 days 08/06/2013; FOLLOW UP WITH PC PROVIDER IF NEW SYMPTOMS DEVELOP Within As Needed. Counseled: Patient, Family, Regarding diagnosis, Regarding diagnostic results, Regarding treatment plan, Regarding prescription, Patient indicated understanding of instructions. Notes: Patient felt complete relief of headache prior to discharge and had no significant nausea.. Electronically Signed By: RENATA DUBOIS MD On: 08/04/2013 10:48 PM Modified by and Electronically Signed by: RENATA DUBOIS MD On: 08/04/2013 08:56 PM Source: [facility] [employer]CHART Document Id: [id number]} ERTING OPERATOR Nataliia Gonsalves, R.N. 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 ; Last Updated: 06/01/2011 16:16CDT ; Life Cycle Date: 06/01/2011 ; Life Cycle Status: Active ; Responsible Provider: JENNA PITTMAN III, MD; Vocabulary: ICD-9-CM COPD (SNOMED CT :73872528 ) Name of Problem: COPD ; Onset Date: 2000 ; Recorder: MATIAS MCDUFFIE LPN; Confirmation: Confirmed ; Classification: Nursing ; Code: 40042103 ; Contributor System: [employer] ; Last Updated: 06/01/2011 16:09 CDT ; Life Cycle Date: 06/01/2011 ; Life Cycle Status: Active ; Responsible Provider: MATIAS MCDUFFIE LPN; Vocabulary: SNOMED CT Diagnoses(Active) Headache Date: 08/04/2013 ; Diagnosis Type: Reason For Visit ; Confirmation: Complaint of ; ClinicalDx: Headache ; Classification: Medical ; Clinical Service: Emergency medicine ; Code: PNED ; Probability: 0 ; Diagnosis Code: [id number] Vomiting Date: 08/04/2013 ; Diagnosis Type: Reason For Visit ; Confirmation: Complaint of ; ClinicalDx: Vomiting ; Classification: Medical ; Clinical Service: Emergency medicine ; Code: PNED ; Probability: 0 ; Diagnosis Code: [id number] Triage Chief Complaint Description : had knee scope in RW today, vomiting, can't keep anything down, has headache, pt spoke with nurse karen premix operator concentrate dr in and was told to come here Information Given By : Patient, Spouse Accompanied By : Spouse Mode of Arrival ED : Private vehicle, Ambulatory Track : Medical Languages : Micronesian Vital Signs Assessed : Yes Treatments Prior to Arrival : None NATALIIA GONSALVES RN - 08/04/2013 20:33 CONVERTING OPERATOR Vital Signs Temperature Core : 36.3 DegC(Converted to: 97.3 DegF) (LOW) Peripheral Pulse Rate : 89 /min Respiratory Rate : 18 /min Systolic Blood Pressure : 145 mmHg (HI) Diastolic Blood Pressure : 80 mmHg NIBP Mean : 102 mmHg BP Location : Right upper extremity SpO2 : 98 % Oxygen Saturation Monitoring Frequency : Continuous Oxygen Therapy : Room air Height : 173 cm(Converted to: 5 ft 8 inch(es)) Height Source : Estimated Estimated Weight : 90.9 kg Estimated Weight Conversion to Pounds : 199.98 lb NATALIIA GONSALVES RN - 08/04/2013 20:33 CONVERTING OPERATOR Pain Assessment Pain Symptoms : Yes NATALIIA GONSALVES RN - 08/04/2013 20:33 CONVERTING OPERATOR Pain Pain Assessment Grid Pain 1 Pain 2 Pain 3 Location : Head Knee Laterality : Bilateral Intensity : 8 6 Time Pattern : Constant Constant Onset : Gradual Gradual (Comment: pain is gradually getting worse since her surgery meds wearing off[NATALIIA GONSALVES RN - 08/04/2013 20:33 CONVERTING OPERATOR] ) Quality : Aching, Throbbing (Comment: behind eyes and teeth areas [NATALIIA GONSALVES RN - 08/04/2013 20:33 CONVERTING OPERATOR] ) Aching, Burning Pain Radiation : No No No Interventions : MD notified MD notified BEATRIZ GONSALVESKaren Ruiz - 08/04/2013 20:33 CONVERTING OPERATOR NATALIIA GONSALVES RN - 08/04/2013 20:33 CONVERTING OPERATOR NATALIIA GONSALVES RN - 08/04/2013 20:33 CONVERTING OPERATOR ED Physician Notification Time ED Physician Notification Time : 08/04/2013 20:40 CONVERTING OPERATOR NATALIIA GONSALVES RN - 08/04/2013 20:33 CONVERTING OPERATOR DESTINEY DESTINEY Level 1 : No DESTINEY Level 2 : No DESTINEY Level 3 : One NATALIIA GONSALVES RN - 08/04/2013 20:33 CONVERTING OPERATOR DCP GENERIC CODE Tracking Acuity : 3 -Urgent Tracking Group : [place] [facility] NATALIIA GONSALVES RN - 08/04/2013 20:33 CONVERTING OPERATOR Allergy (As Of: 08/04/2013 20:41:28 CONVERTING OPERATOR) Allergies (Active) erythromycin Estimated Onset Date: Unspecified ; Reactions: stomach upset,, vomiting ; Created By: MATIAS MCDUFFIE LPN; Reaction Status: Active ; Category: Drug ; Substance: erythromycin ; Type: Allergy ; Updated By: MATIAS MCDUFFIE LPN; Reviewed Date: 08/13/2012 14:27 CONVERTING OPERATOR Immunizations Last Tetanus : < 5 years Pneumovac : Other: has had but not within the last 5 years Influenza : This year BEATRIZ GONSALVESKaren Melchor RN - 08/04/2013 20:33 CONVERTING OPERATOR Source: [facility] POWERCHART Document Id: [id number] CONVERTING OPERATOR!61 ERTING OPERATOR documented in this encounter Miscellaneous Notes Miscellaneous - Nataliia Gonsalves R.N. - 08/04/2013 10:33 PM CST Valuables/Belongings Valuables/Belongings Entered On: 08/04/2013 22:35 CONVERTING OPERATOR Performed On: 08/04/2013 22:33 CONVERTING OPERATOR by NATALIIA GONSALVES RN Valuables/Belongings Valuables/Belongings Grid Valuables with Patient Clothes, Patient Valuables : Coat, Pants, Shirt, Shoes, Undergarments Monetary Items : Purse NATALIIA GONSALVES RN - 08/04/2013 22:33 CONVERTING OPERATOR Home Medication Disposition : None brought in with patient NATALIIA GONSALVES RN - 08/04/2013 22:33 CONVERTING OPERATOR Source: [facility] POWERCHART Document Id: [id number] CONVERTING OPERATOR!7 ERTING OPERATOR Miscellaneous - Nataliia Gonsalves R.N. - 08/04/2013 8:28 PM CST Facility Charge Ticket 2.0 11.0 DX Facility Charge Ticket 2.0 11.0 DX Entered On: 08/04/2013 22:36 CONVERTING OPERATOR Performed On: 08/04/2013 20:28 CONVERTING OPERATOR by NATALIIA GONSALVES RN Facility Charge Ticket 2.0 11.0 DX ED Other Charges : Standard ED Encounter TVL Level Translated RTF : Vomiting TVL:4 TVL Level for Facility Charge Ticket : Level 4 Arrival Mode Calc : 1 Mode of Arrival ED : Private vehicle, Ambulatory [facility] Mode of Arrival Interpreted : Standard [facility] Process Management : None [facility] Order Management : None 30 Minutes Critical Care : No Nursing Notes RTF : Triage Forms ED Triage Assessment,08/04/13 20:33,NATALIIA GONSALVES RN Nursing Notes ED Primary Assessment,08/04/13 21:43,NATALIIA GONSALVES [employer] Nurse Reassess,08/04/13 22:19,NATALIIA GONSALVES [employer] Pain Assessment,08/04/13 21:51,NATALIIA GONSALVES RN [facility] Nursing Assessment : Triage and 3-5 nursing assessments [facility] Disposition : Discharge [facility] Total Points with Diagnosis Control : 8 [facility] Visit Level : 10039 Level 4 Treatments Prior to Arrival : None NATALIIA GONSALVES RN - 08/04/2013 22:36 CONVERTING OPERATOR Source: [facility] [employer] Document Id: [id number] CONVERTING OPERATOR!17 ERTING OPERATOR documented in this encounter Plan of Treatment Not on filedocumented as of this encounter Visit Diagnoses Not on filedocumented in this encounter Additional Health Concerns Assessment Noted Time PHQ-9 Depression Total Score: 8 09/18/2012 7:41 AM CONVERTING OPERATOR documented as of this encounter
--- OUTSIDE RECORDS SUMMARY | 2022-08-29 12:17 | XMS_ITS | Encounter Summary ---
:1975 Author Organization [facility] Address [address] [place] [address] Care Team Providers Name Role Phone Unavailable Primary Care Provider Unavailable Encounter Details Date Type Department Care Team Description 06/29/2014 Hospital Encounter [facility] ME Michael Veloz, N.P. [address] [place] [address] [phone] (Wo rk) Social History Tobacco Use Types Packs/Day Years Used Date Smoking Tobacco: Never Assessed Sex Assigned at Date Recorded Female 02/11/2018 8:36 AM CDT documented as of this encounter Last Filed Vital Signs Vital Sign Reading Time Taken Comments Blood Pressure 145/82 06/29/2014 10:18 AM CDT Pulse 89 06/29/2014 10:12 AM CDT Temperature - - Respiratory Rate 16 06/29/2014 10:12 AM CDT Oxygen Saturation - - Inhaled Oxygen Concentration - - Weight 89.8 kg (197 lb 15.6 oz) 06/29/2014 10:12 AM CDT Height 174 cm (5' 8.5) 06/29/2014 10:18 AM CDT Body Mass Index 29.66 06/29/2014 10:12 AM CDT documented in this encounter Medications [...] encounter Progress Notes Telma Veloz N.P. - 06/29/2014 9:54 AM CDT [id number] CHIEF COMPLAINT/REASON FOR VISIT Severe headache. HISTORY OF ILLNESS Christopher is a 38-year-old female who is here today with concerns about a headache that was very sudden in onset and very severe last night. She reports when she was sexually active with her that she got a severe headache that felt like an explosion in her head. She states it is very debilitating.She said for about 2 to 3 hours it was extremely terrible mostly on the left side of her head. It did kind of ease off from a throbbing more to a dull pressure but then when she got up this morning herheadache symptoms seemed to intensify. When she came to the clinic here it seemed as though her symptoms have intensified a little bit as well. She states that she has also had a little bit of pain in her neck. The headache was so severe it also caused some nausea and she has had tingling in both of her hands. She has noted that she has been more sensitive to light and sound. She has no personal history of headaches no family history of headaches. She had a grandmother who had a stroke. No history of cerebral aneurysm in the family. She denies any visual changes. She has had no recent illness or fever. She has never had anything like this happen before. MEDICATIONS Reviewed and unchanged. Please see EMR. ALLERGIES Bupropion. Erythromycin. PAST MEDICAL/SURGICAL HISTORY Reviewed and unchanged. Please see EMR. VITAL SIGNS Temp 36.6, pulse 89, respirations 16, blood pressure 145/82 O2 sat is 99% on room air. PHYSICAL EXAMINATION GENERAL: Christopher is alert, oriented times 3. Appears uncomfortable lis lying supine during the exam today. She is slightly pale. HEENT: Head is normocephalic, atraumatic. Bilateral TMs are shiny, pollack, intact, with no erythema oreffusion present. PERRLA EOMs are intact. Nares are patent. Oropharynx is without erythema, exudate,or swelling. NECK: Supple with no lymphadenopathy. No carotid bruit or thyromegaly. HEART: Rate is regular. S1, S2 is present. No murmur or rub. LUNGS: Clear to auscultation. NEUROLOGIC: Cranial nerves II to XII do appear to be grossly intact. DIAGNOSTICS 1. CBC: Eosinophilic count is slightly elevated otherwise normal. 2. BMP is normal. 3. CT of the head without contrast shows no hemorrhage mass effect or hydrocephalus. No evidence of acute infarction. Subtle hypodensity and subcortical white matter, both lateral frontal lobes. This is most likely artifactual. Mucosal thickening and a couple of left ethmoid air cells. IMPRESSION/REPORT/PLAN New-onset severe headache. PLAN: I reviewed the diagnostic findings with Christopher at this time. We discussed the type of headache she describes is rare but not unheard of. We did talk about possible treatment options, including giving her some Imitrex here today or an anti-inflammatory which she did opt to go home as her headache did improve the longer she was here in the clinic and try some Toradol that she had left over from a previous surgery. We discussed that to further rule out any vascular cause of her headaches an MRI/MRA which I have ordered would be appropriate and we will contact her regarding the results once they are available. We discussed maintaining good hydration as well. Certainly, if she continues to experience these headaches we could talk about some type of prophylactic medication such as a daily dose of propranolol indomethacin or even a form of Imitrex. Further plan of care will be determined based on her MRI results. Her questions have been addressed and she is agreeable to this plan of care. Ready to learn. No apparent learning barriers were identified. Learning preferences include listening. Explained diagnosis and treatment plan. Patient/Child/Caregiver expressed understanding of the content. Leyda Mckeon/brayden Electronically Signed By: TELMA VELOZ NP On: 07/19/2014 12:38 PM Source: [facility] [id number] Document Id: [id number] VERY AGENT documented in this encounter Miscellaneous Notes Miscellaneous - Telma Veloz NVicentaP. - 06/29/2014 3:16 PM CDT Ambulatory Patient Summary [address] [facility] Vishal Devries [place] [id number] Visit Information Name: CHRISTOPHER TY [facility] Number: [id number] Current Date: 06/29/2014 15:16:24 Physicians Attending Provider: TELMA VELOZ NP Primary Care Provider: JENNA PITTMAN III, MD [...] for Shortness of breath / Wheezing Asthma citalopram (citalopram 10 mg oral tablet) 1 Tablet(s), Oral, once a day Depression ibuprofen (ibuprofen 200 mg oral capsule) 200 [...] the Following Medications: Medication list as of 06-29-14 15:16 Attention: If you have any medications at home that are not on this list, DO NOT take them until youcontact your provider for clarification. Give a copy of your medication list to your primary care provider. Update your medication list any time medications or doses are changed and carry your medication list at all times in case of emergency. Electronically Signed By: TELMA VELOZ NP Signed On:29-JUN-2014 15:16:18 Your Allergies & Intolerances Substance Reaction Symptoms Category Comments erythromycin stomach upset, Drug erythromycin vomiting Drug buPROPion Drug Your Problem List Problem Status Onset Comments Bronchopulmonary dysplasia of Active 1975 Sinusitis Active 09/19/2007 Pneumonia - organism, NOS Active 03/23/2008 Asthma NOS (493.90) Active 03/23/2008 Fibromyalgia Active 06/13/2008 Post-traumatic stress disorder (PTSD) Active 11/19/2012 10/22/13 diagnosed per [facility] Insomnia, Unspecified Active 11/19/2012 10/22/13 per [facility] Vitamin D deficiency NOS Active 11/19/2012 10/22/13 per [facility] Cervical disc disease* [facility] 11/19/2012 [facility] Depression Major Recurrent Mild Active [...] Chronic respiratory disease arising in the period Your Upcoming Appointments Date Time Location Provider 06/30/2014 12:00 [facility] MR Room 1 Attention: Contact your local Clinic if further appointment detail needed. Your Goals/Additional instructions: Source: [facility] POWERCHART Document Id: [id number] Miscellaneous - Telma Veloz N.P. - 06/29/2014 3:16 PM CDT Ambulatory Discharge Medication List [address] [id number] Visit Information Name: CHRISTOPHER TY [facility] Number: [id number] Visit Date: 06/29/2014 15:16:23 Attending Provider: TELMA VELOZ PHARMACY TECH CUSTOMER SERVICE Primary Care Provider: JENNA PITTMAN III, MD [...] for Shortness of breath / Wheezing Asthma citalopram (citalopram 10 mg oral tablet) 1 Tablet(s), Oral, once a day Depression ibuprofen (ibuprofen 200 mg oral capsule) 200 [...] the Following Medications: Medication list as of 06-29-14 15:16 Attention: If you have any medications at home that are not on this list, DO NOT take them until youcontact your provider for clarification. Give a copy of your medication list to your primary care provider. Update your medication list any time medications or doses are changed and carry your medication list at all times in case of emergency. Electronically Signed By: TELMA VELOZ PHARMACY TECH CUSTOMER SERVICE Signed On:29-JUN-2014 15:16:18 Additional Information: Source: [facility] POWERCHART Document Id: [id number] Miscellaneous - Carol Torres, L.P.N. - 06/29/2014 10:18 AM CDT Ambulatory Vitals Height Weight Ambulatory Vitals Height Weight Entered On: 06/29/2014 10:18 CDT Performed On: 06/29/2014 10:18 CDT by CAROL TORRES [employer]ORAIL CAR OPERATOR Vitals/Ht/Wt Systolic Blood Pressure : 145 mmHg (HI) Diastolic Blood Pressure : 82 mmHg NIBP Mean : 103 mmHg BP Location : Left upper extremity Blood Pressure Cuff Size : Large Height : 174 cm(Converted to: 5 ft 9 inch(es), 69 inch(es)) CAROL TORRES LPN - 06/29/2014 10:18 CDT [facility] Document Id: [id number] CDT!8 Miscellaneous - Carol Torres, L.P.N. - 06/29/2014 10:12 AM CDT Adult Affiliate Marketing Specialist Intake/History Adult Affiliate Marketing Specialist Intake/History Entered On: 06/29/2014 10:17 CDT Performed On: 06/29/2014 10:12 CDT by CAROL TORRES LPN Intake Chief Complaint : Headache x1day. took ibuprophen-no relief. Onset of Symptoms : Last night headache begain. Pain scale-10. today-4. Temperature Core : 36.6 DegC(Converted to: 97.9 DegF) Peripheral Pulse Rate : 89 /min Respiratory Rate : 16 /min Heart Rhythm : Irregular Systolic Blood Pressure : 146 mmHg (HI) Diastolic Blood Pressure : 93 mmHg (>HHI) NIBP Mean : 111 mmHg BP Location : Left upper extremity Blood Pressure Cuff Size : Regular SpO2 : 99 % Oxygen Therapy : Room air Height : 174 cm(Converted to: 5 ft 9 inch(es), 69 inch(es)) Actual Weight : 89.8 kg(Converted to: 198 lb 0 oz) Weight Source : Standing scale Dosing Weight Clinic : 89.8 kg Clinic BSA : 2.08 Body Mass Index : 29.66 kg/m2 CAROL TORRES LPN - 06/29/2014 10:12 CDT General Info Information Given By : Patient Preferred Communication Mode : Verbal Languages : Hebrew Is Patient Female and 13-50 no hysterectomy : No CAROL TORRES LPN - 06/29/2014 10:12 CDT Subjective Pain Symptoms : Yes CAROL TORRES LPN - 06/29/2014 10:12 CDT Pain Pain Assessment Grid Pain 1 Location : Head Intensity : 4 CAROL TORRES LPN - 06/29/2014 10:12 CDT Dependent Habits Tobacco Use/Currently Using : No Exposure to Tobacco Smoke : Care provider denies smoking in home Smoking Status : Never smoker CAROL TORRES [facility] - 06/29/2014 10:12 CDT Tobacco Use Grid Last Use : never MELISSA CAROL Barone [facility] - 06/29/2014 10:12 CDT Alcohol Use : No MELISSA CAROL Barone [facility] - 06/29/2014 10:12 CDT Caffeine Use Grid Caffeine Use : Current Type : Coffee Frequency : Occasionally CAROL TORRES [facility] - 06/29/2014 10:12 CDT Recreational Drug Use Grid Drug Use : None CAROL TORRES [facility] - 06/29/2014 10:12 CDT Source: [facility] POWERCHART Document Id: [id number] CDT!49 documented in this encounter Plan of Treatment Not on filedocumented as of this encounter Procedures Procedure Name Priority Date/Time Associated Diagnosis Comme nts AUTOMATED Routine 06/29/2014 10:52 AM Results for this DIFFERENTIAL, B CDT procedure ar e in the results section. CBC WITH Routine 06/29/2014 10:52 AM Results for this DIFFERENTIAL, B CDT procedure ar e in the results section. BASIC METABOLIC Routine 06/29/2014 10:52 AM Resul ts for this PANEL, S/P CDT procedure are i n the results section. documented in this encounter Results (ABNORMAL) Automated Differential (06/29/2014 10:52 AM CDT) [facility] gist Method Time Signature Absolute 5.42 1.70 - POWERCHART Neutrophils 7.00 109L Lymphocytes 2.22 0.90 - POWERCHART 2.90 X109L Monocytes 0.52 0.30 - POWERCHART 0.90 X109L Eosinophils 0.73 (H) 0.05 - POWERCHART 0.50 X109L Absolute 0.06 0.00 - POWERCHART Basophil 0.30 X109L Specimen Anatomical Collection Method Collection Time Receive d Time (Source) Location / / Volume Laterality Blood 06/29/2014 10:52 06/29/2014 AM CDT 10:52 AM CDT Telma Veloz N.P. LAB BLOOD ADD-ON Performing Organization Address City/State/ZIP Code Phon e Number POWERCHART CBC with Differential (06/29/2014 10:52 AM CDT) P athologist Signature Leukocytes 9.0 3.4 - 10.5 POWERCHART X109L Erythrocytes 4.81 3.90 - POWERCHART 5.03 [id number] Hemoglobin 14.4 12.0 - POWERCHART 15.5 GDL Hematocrit 42.6 34.9 - POWERCHART 44.5 MCV 88.6 82.0 - POWERCHART 98.0 FL HX RDW 11.9 11.9 - POWERCHART 15.5 Platelet Count 191 150 - 450 POWERCHART X109L HXDifferential? Auto POWERCHART Specimen (Source) Anatomical Collection Method Collection Time Re ceived Time Location / / Volume Laterality Blood 06/29/2014 10:52 AM CDT Telma Veloz N.P. LAB BLOOD ADD-ON Performing Organization Address City/[facility] Code Phon e Number POWERCHART BMP (Basic Metabolic Panel) (06/29/2014 10:52 AM CDT) P athologist Signature Anion Gap 11 10 - 20 POWERCHART MMOLL BUN (Blood Urea 17 7 - 18 POWERCHART Nitrogen), S MGDL Chloride, S 103 98 - 107 POWERCHART MMOLL CO2 Total 26.6 23.0 - POWERCHART 29.0 MMOLL Creatinine 0.73 0.60 - POWERCHART 1.30 MGDL Glucose 86 70 - 139 POWERCHART MGDL Calcium, Total, 9.4 8.6 - 10.0 POWERCHART S MGDL Sodium, S 136.6 135.0 - POWERCHART 145.0 MML Potassium, S 4.1 3.6 - 4.8 POWERCHART MMOLL HXeGFR (MDRD) >60 >=60 POWERCHART [id number] eGFR >60 >=60 POWERCHART Black/ [id number] Ecuadorean Specimen (Source) Anatomical Collection Method Collection Time Re ceived Time Location / / Volume Laterality Blood 06/29/2014 10:52 AM CDT Telma Veloz N.P. LAB BLOOD ADD-ON Performing Organization Address City/State/ZIP Code Phon e Number POWERCHART documented in this encounter Visit Diagnoses Not on filedocumented in this encounter
--- OUTSIDE RECORDS SUMMARY | 2022-08-29 12:17 | XMS_ITS | Encounter Summary ---
:1975 Author Organization [facility] Address [address] [place] [address] Care Team Providers Name Role Phone Unavailable Primary Care Provider Unavailable Encounter Details Date Type Department Care Team Description 11/16/2014 Hospital Encounter HX [facility] Dianne Whiteside, BARRERA, C.N.P., D. N.P. [address] [place] [address] (Wo rk) Social History Tobacco Use Types Packs/Day Years Used Date Smoking Tobacco: Never Assessed Sex Assigned at Date Recorded Female 02/11/2018 8:36 AM CDT documented as of this encounter Last Filed Vital Signs Vital Sign Reading Time Taken Comments Blood Pressure 120/71 11/16/2014 5:50 PM KITCHEN CHEF Pulse 66 11/16/2014 5:50 PM KITCHEN CHEF Temperature - - Respiratory Rate 16 11/16/2014 5:50 PM KITCHEN CHEF Oxygen Saturation - - Inhaled Oxygen Concentration - - Weight 86 kg (189 lb 9.5 oz) 11/16/2014 5:50 PM KITCHEN CHEF Height 173 cm (5' 8.11) 11/16/2014 5:50 PM KITCHEN CHEF Body Mass Index 28.73 11/16/2014 5:50 PM KITCHEN CHEF documented in this encounter Medications at Time [...] documented as of this encounter H&P Notes Dianne Whiteside D.N.P., CVicentaN.P. - 11/16/2014 5:46 PM CST [id number] CHIEF COMPLAINT/REASON FOR VISIT Routine physical examination. HISTORY OF PRESENT ILLNESS The patient is a 39-year-old female presents to the clinic today for routine physical examination. She indicates that she eats approximately 4 to 5 meals per day, incorporating small portions into her diet and indicates that she probably gets approximately 3 to 4 servings of fruits and vegetables intoher diet per day. She indicates that she has a history of lactose intolerance, including GI side effects, in which normally she avoids drinking milk but does indicate that she does eat yogurt and cheese occasionally in her diet. She feels like she gets adequate sleep, getting approximately 9 hours of sleep at night. She does follow up with her dentist every 6 months and also yearly for a routine annual eye examination. She indicates that she does try exercising 3 times a week on her treadmill, but sometimes is not always able to get all days in. She indicates that she has been attempting to bring her BMI down to overall improve her health and wellness. She does have a very complex medical history,including bronchial dysplasia, in which feels last followed up by [facility] back in 2011. At that time, she was on inhaled cortical steroids. She reports that she discontinued these medications, as she indicates she did not think they were providing any help. She does not use a peak flow meter at home to be checking her peak flows. She also has a history of some chronic neck pain, in whichshe has had an x-ray of the cervical spine completed in the past showing cervical lordosis. She is interested in following up with Physical Therapy or any other modalities that would overall help with the symptoms of chronic neck discomfort. She also reports that she has been having some chronic left hip pain that has been present now for at least approximately the last 4 years' duration. She describes it more of a catching sensation of the hip. She has not undergone any kind of physical therapy services for this and has not undergone any kind of imaging. She indicates that after a catching sensation the hip is quite sore for a couple days and then she returns to a baseline of normal activity. Shesuffers from a chronic rash to the upper extremities, in which she indicates that this usually happens in the wintertime. She reports that she usually utilizes lotions that are dye free and scent free but is not currently using dye free or scent free laundry detergent. She indicates that she has been having this rash for most of her life, as also the rash affects her lower extremities. She does report that the rash is pruritic. I will note she does have a history of elevated eosinophils, last obtained June 2014 with an absolute count of 0.73. Again, she is coming in today for a routine physical examination. She otherwise indicates that she is not having any other further concerns or issues. PAST MEDICAL/SURGICAL HISTORY PAST MEDICAL HISTORY: 1. Asthma diagnosed in 2007. 2. Bronchial pulmonary dysplasia diagnosed in 1975. 3. Cervical disc disease diagnosed on November 19, 2012. 4. Atrial septal defect diagnosed in 2005. 5. History of dysthymia diagnosed in 1998. 6. Attention deficit disorder. 7. Lizy-Danlos syndrome diagnosed in 2001. 8. Fibromyalgia diagnosed in 2007. 9. Generalized anxiety disorder, diagnosed in 2007. 10. Dysthymia since 2012. 11. History of recurring pneumonia since 2007. 12. Posttraumatic stress disorder diagnosed November of 2012. 13. History rosacea since 2011. 14. Intermittent sinusitis since 2007. 15. Vitamin D deficiency diagnosed in 2012. PAST SURGICAL HISTORY: 1. Vaginal deliveries in 1996, 1998 and 2000. 2. D&C in 1994. 3. Partial hysterectomy in January of 2006. 4. Left meniscectomy, July 2013. 5. Closure of the atrial septal defect, June of 2006. 6. Excision of a lipoma to the left anterior rib area in 2011. 7. History of a tubal ligation. PAST FAMILY HISTORY Father's medical history is unknown. There is a great maternal grandmother that had a history of stroke. However, no other family history is noted. SOCIAL HISTORY Patient is presently . 4, para 3. 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 Shedenies ever having any smoking history, has occasional alcohol usage and denies any illicit drug usage. ALLERGIES Bupropion. Erythromycin. MEDICATIONS Albuterol 90 mcg via inhalation, doing 2 puffs every 4 hours as needed. Citalopram 20 mg by mouth daily. Flonase 50 mcg via inhalation, 1 spray in each nostril 2 times a day. Methylphenidate 10 mg by mouth 2 times a day as needed. Trazodone 100 mg by mouth at bedtime. Ibuprofen [id number] as needed as directed on package. VITAL SIGNS Temp of 36.2 degrees centigrade, pulse 66 beats per minute, respirations 16 per minute, blood pressure is 120/71, oxygen saturation is 98% room air. Height 173 cm, weight 86 kg, BMI 28.73 kg/m2. Peak flows noted to be 380, 360 and 470. PHYSICAL EXAMINATION GENERAL: Patient is alert/oriented x3. HEAD: Normocephalic/atraumatic. PUPILS: JUAN. OROPHARYNX: [place] and moist. TYMPANIC MEMBRANES: Bilateral TMs are clear, bony landmarks noted and within normal limits. NARES: Patent, no erythema or drainage noted. NECK: No anterior/posterior lymphadenopathy noted. HEART: Regular S1, S2, no murmurs, rubs or gallops noted. LUNGS: Clear to auscultation, no prolonged expiratory phases, wheezing, rales or rhonchi noted. SKIN: Multiple macules were noted to the upper and lower extremities and some appear to be excoriated from scratching. These affect bilateral upper and lower extremities. BACK: The patient is noted have cervical lordosis on examination and mild thoracic kyphosis on examination. Pectus excavatum was also noted on examination. GENITOURINARY: Pap was deferred. However, bimanual examination was otherwise unremarkable. IMPRESSION/REPORT/PLAN 1. Bronchopulmonary dysplasia. 2. Chronic left hip pain. 3. Chronic neck pain. 4. Rash. 5. Routine physical examination PLAN: 1. Bronchopulmonary dysplasia: Presently, at this time, after looking at the patient's medical history, it does appear that she should most likely be placed on inhaled corticosteroid. However, though, this causes some irritation to her throat. I would like to trial doing peak flows first for the next 2 weeks' duration, where she can log her peak flow levels and at 2 weeks she is to come into the clinic for spirometry pre and post with DuoNeb. She is then to initiate budesonide 0.5 mg per neb to do 2times a day with a plan on a followup within the next approximate 3 weeks' duration. We will then have her also continue checking her peak flows. After 3 weeks of therapy, we can try re-evaluation of spirometry. She feels very comfortable with this treatment plan. 2. Chronic left hip pain: Presently, at this time, MRI is presently pending, in which we will plan on contacting the patient with these results. I do have some concerns regarding a possible labrum tear. We will also have the patient follow up with Physical Therapy for ongoing evaluation. She feels comfortable with this treatment plan. 3. Neck pain: Presently, at this time, it is apparent she has cervical lordosis, in which I do feel that she could benefit from some aggressive physical therapy treatment, including strengthening and learning appropriate posture. The patient is very open to this. A referral has been made for the patient to follow up with Physical Therapy. She feels very comfortable with this treatment plan. 4. Rash: Presently, at this time, given the overall appearance of rash, I do have some concerns whether this may be secondary to a dietary intolerance. I would like her to trial a gluten free and dairyfree diet for the next several weeks, in which we will plan on following up with her again in 3 weeks' duration overall to see how she is doing. She is very open to this. She otherwise denied having further questions or concerns. Patient left clinic in no acute distress. Ready to learn. No apparent learning barriers were identified. Learning preferences include listening. Explained diagnosis and treatment plan. Patient/Child/Caregiver expressed understanding of the content. Edward CampaN.P./F.N.P/brayden Electronically Signed By: DIANNE WHITESIDE DNP, FNP On: 11/22/2014 08:55 AM Source: [facility] MHSDOLBEYNONRADSYS Document Id: [id number] documented in this encounter Procedure Notes Jossie Jeter L.P.N. - 11/16/2014 5:57 PM CST Peak Flow POC Peak Flow POC Entered On: 11/16/2014 17:58 KITCHEN CHEF Performed On: 11/16/2014 17:57 KITCHEN CHEF by JOSSIE JETER LPN Peak Flow POC Peak Flow POC Initial : 380 L/sec Peak Flow POC #2 : 360 L/sec Peak Flow POC #3 : 470 L/sec Patient Effort Peak Flow POC : Good JOSSIE JETER LPN - 11/16/2014 17:57 KITCHEN CHEF Source: [facility] [employer]ie Document Id: [id number] KITCHEN CHEF!6 HEN CHEF documented in this encounter Miscellaneous Notes Miscellaneous - Zina Valenzuela L.PVicentaNVicenta - 11/18/2014 1:36 PM CST Quality Measures Quality Measures Entered On: 11/18/2014 13:37 KITCHEN CHEF Performed On: 11/18/2014 13:36 KITCHEN CHEF by ZINA VALENZUELA LPN Asthma Adult Asthma Control Test Score : 20 ED visits past yr for asthma w/o hospital stay : 0 Hospitalizations/Overnight Stays in Past yr for Asthma : 0 Asthma Action Plan Provided/Reviewed : Reviewed with the patient Asthma Action Plan Copy : In patient's paper chart ZINA VALENZUELA LPN - 11/18/2014 13:36 KITCHEN CHEF Source: [facility] [employer] Document Id: [id number] KITCHEN CHEF!7 HEN CHEF Miscellaneous - Dianne Whiteside D.NVicentaP., C.N.P. - 11/16/2014 7:35 PM KITCHEN CHEF Ambulatory Patient Summary [address] [place] [id number] Visit Information Name: CHRISTOPHER TY [facility] Number: [id number] Current Date: 11/16/2014 19:35:37 Physicians Attending Provider: DIANNE WHITESIDE DNP, LINING STAMPER Primary Care Provider: JENNA PITTMAN III, MD [...] Milliliter, Nebulized inhalation, two times a day New Routed to [address] [address] citalopram (citalopram 20 mg oral tablet) 1 Tablet(s), Oral, once a day fluticasone nasal (Flonase 50 mcg/inh nasal spray) 1 Mellott(s), Nostrils(Both), two times a day ibuprofen (ibuprofen 200 mg oral capsule) 200 mg, Oral, every 4 hours as needed for Other - per symptoms *methylphenidate (methylphenidate 10 mg oral tablet) 1 Tablet(s), Oral, two times a day AM & Afternoon traZODone (traZODone 50 mg oral tablet) 100 mg, Oral, once a day (at bedtime) 2 tabs for a total of 100mg at bedtime * You have let us know that you are not taking this medication as listed. Please talk with your primary care provider or the health care provider who prescribed the medication as soon as possible. Stop Taking the Following Medications: cholecalciferol (cholecalciferol 50,000 intl units oral capsule) Medication list as of 11-16-14 19:35 Attention: If you have any medications at [...] emergency. Electronically Signed By: DIANNE WHITESIDE DNP, LINING STAMPER Signed On:16-NOV-2014 19:30:37 Your Allergies & Intolerances Substance Reaction Symptoms Category Comments erythromycin stomach upset, Drug erythromycin vomiting Drug buPROPion Drug Your Problem List Problem Status Onset Comments Bronchopulmonary dysplasia of Active 1975 Sinusitis Active 09/19/2007 Pneumonia - organism, NOS Active 03/23/2008 Asthma NOS (493.90) Active 03/23/2008 Fibromyalgia Active 06/13/2008 Post-traumatic stress disorder (PTSD) Active 11/19/2012 10/22/13 diagnosed per [facility] Insomnia, Unspecified Active 11/19/2012 10[facility] Vitamin D deficiency NOS Active 11/19/2012 10/22/13 per [facility] Cervical disc disease* Active 11/19/2012 10/22/13 per [facility] Depression Major Recurrent Mild Active [...] significant change has occurred.; 11/16/14 Per cardiology [facility] I think she should have an echocardiogram and clinical visit every two years for surveillance of her device as well as monitoring for the development of atrial arrhythmias. Your Upcoming Appointments Date Time Location Provider No Appointments found Attention: Contact your local Clinic if further appointment detail needed. Your Goals/Additional instructions: Please complete daily peak flows and document them in your book.After 2 weeks I would like you to have a spriometry test completed (this is ordered) and also a neb at that time. We will then have you start budesonide nebs twice a day and see if your peak flows improve and if your throat tolerates the nebs. We will call you to set up your appointment for your MRI (I will call you with your results) and also schedule you for your follow up with physical therapy. Please trial a gluten free/dairy free diet (with journaling) for the next 3 weeks and lets see if we see any changes to your skin. Source: [facility] POWERCHART Document Id: [id number] HEN CHEF Miscellaneous - Dianne Whiteside D.N.P., C.N.P. - 11/16/2014 7:35 PM KITCHEN CHEF Ambulatory Discharge Medication List [address] [id number] Visit Information Name: MELONY CHRISTOPHER MOCTEZUMA [facility] Number: [id number] Visit Date: 11/16/2014 19:35:35 Attending Provider: DIANNE WHITESIDE DNP, LINING STAMPER Primary Care Provider: JENNA PITTMAN III, MD [...] Milliliter, Nebulized inhalation, two times a day New Routed to [address] [address] citalopram (citalopram 20 mg oral tablet) 1 Tablet(s), Oral, once a day fluticasone nasal (Flonase 50 mcg/inh nasal spray) 1 Mellott(s), Nostrils(Both), two times a day ibuprofen (ibuprofen 200 mg oral capsule) 200 mg, Oral, every 4 hours as needed for Other - per symptoms *methylphenidate (methylphenidate 10 mg oral tablet) 1 Tablet(s), Oral, two times a day AM & Afternoon traZODone (traZODone 50 mg oral tablet) 100 mg, Oral, once a day (at bedtime) 2 tabs for a total of 100mg at bedtime * You have let us know that you are not taking this medication as listed. Please talk with your primary care provider or the health care provider who prescribed the medication as soon as possible. Stop Taking the Following Medications: cholecalciferol (cholecalciferol 50,000 intl units oral capsule) Medication list as of 11-16-14 19:35 Attention: If you have any medications at [...] Signed By: DIANNE WHITESIDE DNP, FNP Signed On:16-NOV-2014 19:30:37 Additional Information: Source: [facility] POWERCHART Document Id: [id number] HEN CHEF Miscellaneous - Jossie Jeter LVicentaP.N. - 11/16/2014 5:50 PM CST Adult Technology Services Manager Intake/History Adult Technology Services Manager Intake/History Entered On: 11/16/2014 17:53 KITCHEN CHEF Performed On: 11/16/2014 17:50 KITCHEN CHEF by JOSSIE JETER ACCOUNTANT CERTIFIED PUBLIC Intake Chief Complaint : Yearly physical, no problems or concerns Temperature Core : 36.2 DegC(Converted to: 97.2 DegF) (LOW) Peripheral Pulse Rate : 66 /min Respiratory Rate : 16 /min Heart Rhythm : Regular Systolic Blood Pressure : 120 mmHg Diastolic Blood Pressure : 71 mmHg NIBP Mean : 87 mmHg BP Location : Left upper extremity Blood Pressure Cuff Size : Large SpO2 : 98 % Oxygen Therapy : Room air Height : 173.0 cm(Converted to: 5 ft 8 inch(es), 68 inch(es)) Actual Weight : 86.0 kg(Converted to: 189 lb 10 oz) Weight Source : Standing scale Dosing Weight Clinic : 86 kg Clinic BSA : 2.03 Body Mass Index : 28.73 kg/m2 JOSSIE JETER LPN - 11/16/2014 17:50 KITCHEN CHEF General Info Information Given By : Patient Preferred Communication Mode : Verbal Languages : Hebrew Is Patient Female and 13-50 no hysterectomy : No JOSSIE JETER LPN - 11/16/2014 17:50 KITCHEN CHEF Subjective Pain Symptoms : No JOSSIE JETER LPN - 11/16/2014 17:50 KITCHEN CHEF Dependent Habits Tobacco Use/Currently Using : No Tobacco Use/Last 12 months : No Tobacco Use/Advised to Quit : No Exposure to Tobacco Smoke : Care provider denies smoking in home Smoking Status : Never smoker JOSSIE JETER [facility] - 11/16/2014 17:50 KITCHEN CHEF Tobacco Use Grid Last Use : never JOSSIE JETER ACCOUNTANT CERTIFIED PUBLIC - 11/16/2014 17:50 KITCHEN CHEF Alcohol Use : Yes JOSSIE JETER ACCOUNTANT CERTIFIED PUBLIC - 11/16/2014 17:50 KITCHEN CHEF Caffeine Use Grid Caffeine Use : Current Type : Coffee Frequency : Occasionally JOSSIE JETER LPN - 11/16/2014 17:50 KITCHEN CHEF Recreational Drug Use Grid Drug Use : None JOSSIE JETER LPN - 11/16/2014 17:50 KITCHEN CHEF ID Screen Drug Resistant Organism : No Travel Within Last 21 Days : No Contact with someone with Ebola : No JOSSIE JETER LPN - 11/16/2014 17:50 KITCHEN CHEF Source: [employer] Document Id: [id number] KITCHEN CHEF!49 HEN CHEF Miscellaneous - Jossie Jeter L.P.N. - 11/16/2014 5:50 PM CST Health Assessment Health Assessment Entered On: 11/16/2014 17:54 KITCHEN CHEF Performed On: 11/16/2014 17:50 KITCHEN CHEF by JOSSIE JETER LPN Health Assessment Complete Health Assessment Complete or Modified : Annual Health Assessment Annual Health Assessment Completed : Yes JOSSIE JETER LPN - 11/16/2014 17:50 KITCHEN CHEF Nutrition Nutrition Risk Factors by History Adult : None JOSSIE JETER LPN - 11/16/2014 17:50 KITCHEN CHEF Functional Current Daily Living Assistance : None JOSSIE JETER LPN - 11/16/2014 17:50 KITCHEN CHEF Dependent Habits Tobacco Use/Currently Using : No Tobacco Use/Last 12 months : No Tobacco Use/Advised to Quit : No Exposure to Tobacco Smoke : Care provider denies smoking in home Smoking Status : Never smoker JOSSIE JETER LPN - 11/16/2014 17:50 KITCHEN CHEF Tobacco Use Grid Last Use : never JOSSIE JETER LPN - 11/16/2014 17:50 KITCHEN CHEF Alcohol Use : Yes JOSSIE JETER LPN - 11/16/2014 17:50 KITCHEN CHEF Caffeine Use Grid Caffeine Use : Current Type : Coffee Frequency : Occasionally JOSSIE JETER LPN - 11/16/2014 17:50 KITCHEN CHEF Recreational Drug Use Grid Drug Use : None JOSSIE JETER LPN - 11/16/2014 17:50 KITCHEN CHEF AUDIT Tool How Often Do You Have A Drink : Monthly or less How Many Drinks in a Day When Drinking : 1 or 2 Six or More Drinks On One Occassion : Never Audit Phase 1 Score : 1 JOSSIE JETER LPN - 11/16/2014 17:50 KITCHEN CHEF Psychosocial Domestic Abuse Concerns : None Gnosticism Preference : No Gnosticism Affiliation JOSSIE JETER LPN - 11/16/2014 17:50 KITCHEN CHEF Advance Directive Advanced Directives : No Advance Directive Additional Information : No JOSSIE JETER LPN - 11/16/2014 17:50 KITCHEN CHEF Educ Needs Learning Style Preference Adult Grid Patient : None Family : None JOSSIE JETER LPN - 11/16/2014 17:50 KITCHEN CHEF Source: [facility] POWERCHART Document Id: [id number] KITCHEN CHEF!41 HEN CHEF Miscellaneous - Zina Valenzuela LVicentaP.N. - 11/16/2014 1:34 PM CST Quality Measures Quality Measures Entered On: 11/18/2014 13:34 KITCHEN CHEF Performed On: 11/16/2014 13:34 KITCHEN CHEF by ZINA VALENZUELA LPN Depression PHQ-9 Score : 1 ZINA VALENZUELA LPN - 11/18/2014 13:34 KITCHEN CHEF Source: [facility] POWERCHART Document Id: [id number] KITCHEN CHEF!3 HEN CHEF documented in this encounter Plan of Treatment Not on filedocumented as of this encounter Visit Diagnoses Not on filedocumented in this encounter
--- OUTSIDE RECORDS SUMMARY | 2022-08-29 12:17 | XMS_ITS | Encounter Summary ---
:1975 Author Organization [facility] Address [address] [place] [address] Care Team Providers Name Role Phone Unavailable Primary Care Provider Unavailable Encounter Details Date Type Department Care Team Description 05/31/2014 Hospital Encounter HX [facility] Michael Veloz, N.P. [address] [place] [address] 7701 (Wo rk) Social History Tobacco Use Types Packs/Day Years Used Date Smoking Tobacco: Never Assessed Sex Assigned at Date Recorded Female 02/11/2018 8:36 AM CDT documented as of this encounter Last Filed Vital Signs Vital Sign Reading Time Taken Comments Blood Pressure 113/85 05/31/2014 3:13 PM CDT Pulse 78 05/31/2014 3:13 PM CDT Temperature - - Respiratory Rate 18 05/31/2014 3:13 PM CDT Oxygen Saturation - - Inhaled Oxygen Concentration - - Weight 90.6 kg (199 lb 11.8 oz) 05/31/2014 3:13 PM CDT Height 174 cm (5' 8.5) 05/31/2014 3:13 PM CDT Body Mass Index 29.92 05/31/2014 3:13 PM CDT documented in this encounter Medications [...] encounter Progress Notes Telma Veloz N.P. - 05/31/2014 2:52 PM CDT [id number] CHIEF COMPLAINT/REASON FOR VISIT Sore throat and cold symptoms. HISTORY OF PRESENT ILLNESS Jose is a 38-year-old female who is here today with concerns about not feeling well. Her symptoms started 5 days ago and have included low-grade fever, body aches, nasal congestion, sore throat, productive cough. She states 2 days ago as she felt her symptoms are pretty bad but they have gradually started to get a little bit better. She notes that all 3 of her teenage children are sick with very similar symptoms. She does have a history of chronic lung disease and has had to use her albuterol here recently. She denies any shortness of breath or wheezing presently. She is mostly concerned she may have strep. She denies any abdominal complaints. MEDICATIONS Reviewed. No change. Please see EMR. ALLERGIES 1. Bupropion. 2. Erythromycin. PAST MEDICAL/SURGICAL HISTORY Reviewed and unchanged. Please see EMR. VITAL SIGNS Temp 36, pulse 78, respirations 18, blood pressure 113/85, O2 saturation 96% on room air. PHYSICAL EXAMINATION GENERAL: Jose is alert, oriented x3. Appears somewhat ill. HEENT: Head is normocephalic, atraumatic. Bilateral TMs are dull. No erythema or effusion is noted. Nasal mucosa is swollen, red. Rhinorrhea is present. Oropharynx is erythematous mostly in the posterior pharynx. No tonsillar exudate or swelling. NECK: Supple with no lymphadenopathy. HEART: Rate is regular. S1, S2 is present. No murmur or rub. LUNGS: Initially when auscultated she has slight rhonchi noted in her left upper lobe. This cleared with a cough. DIAGNOSTICS Rapid strep is negative. IMPRESSION/REPORT/PLAN Upper respiratory infection. PLAN: Discussed the physical findings and diagnostic findings with Jose. At this time I would recommend conservative treatment which would include fluids, rest, use of neti pot and [id number] cough and cold medication to treat her symptoms. Certainly, if her lung symptoms were to worsen, she were to develop any shortness of breath, productive cough would worsen, and if her fever would return this may warrant antibiotic therapy which I discussed she should contact us by phone for this. She certainly is welcome to follow up in the clinic if needed as well. Ready to learn. No apparent learning barriers were identified. Learning preferences include listening. Explained diagnosis and treatment plan. Patient/Child/Caregiver expressed understanding of the content. Leyda Mckeon/brayden Electronically Signed By: TELMA VELOZ NP On: 06/15/2014 12:08 PM Source: [facility] MHSDOLBEYNONRADSYS Document Id: [id number] documented in this encounter Miscellaneous Notes Miscellaneous - Lilliam Molina, L.P.N. - 05/31/2014 3:19 PM CDT PHQ-9 PHQ-9 Entered On: 05/31/2014 15:20 CDT Performed On: 05/31/2014 15:19 CDT by LILLIAM MOLINA LPN PHQ-9 Little interest or pleasure in [...] with others : Not difficult at all LILLIAM MOLINA LPN - 05/31/2014 15:19 CDT Source: [facility] POWERCHART Document Id: [id number] CDT!13 Miscellaneous - Lilliam Molina L.P.N. - 05/31/2014 3:13 PM CDT Adult Armed Custom Protection Officer Intake/History Adult Armed Custom Protection Officer Intake/History Entered On: 05/31/2014 15:16 CDT Performed On: 05/31/2014 15:[address] DEPARTMENT DISPATCHER Intake Chief Complaint : sore throat, cold Onset of Symptoms : thurs Temperature Core : 36 DegC(Converted to: 96.8 DegF) (LOW) Peripheral Pulse Rate : 78 /min Respiratory Rate : 18 /min Heart Rhythm : Regular Systolic Blood Pressure : 113 mmHg Diastolic Blood Pressure : 85 mmHg NIBP Mean : 94 mmHg BP Location : Left upper extremity Blood Pressure Cuff Size : Large SpO2 : 96 % Oxygen Therapy : Room air Height : 174 cm(Converted to: 5 ft 9 inch(es), 69 inch(es)) Actual Weight : 90.6 kg(Converted to: 199 lb 12 oz) Weight Source : Standing scale Dosing Weight Clinic : 90.6 kg Clinic BSA : 2.09 Body Mass Index : 29.92 kg/m2 LILLIAM MOLINA [facility] - 05/31/2014 15:13 CDT General Info Information Given By : Patient Languages : Kinyarwanda Is Patient Female and 13-50 no hysterectomy : No LILLIAM MOLINA [facility] - 05/31/2014 15:13 CDT Subjective Pain Symptoms : Yes LILLIAM MOLINA [facility] - 05/31/2014 15:13 CDT Pain Pain Assessment Grid Pain 1 Location : Throat Intensity : 2 LILLIAM MOLINA [facility] - 05/31/2014 15:13 CDT Dependent Habits Tobacco Use/Currently Using : No Exposure to Tobacco Smoke : Care provider denies smoking in home Smoking Status : Never smoker LILLIAM MOLINA [facility] - 05/31/2014 15:13 CDT Tobacco Use Grid Last Use : never LILLIAM MOLINA STRE[address] DEPARTMENT DISPATCHER - 05/31/2014 15:13 CDT Alcohol Use : No LILLIAM MOLINA [facility] - 05/31/2014 15:13 CDT Caffeine Use Grid Caffeine Use : Current Type : Coffee Frequency : Occasionally LILLIAM MOLINA STRE[address] DEPARTMENT DISPATCHER - 05/31/2014 15:13 CDT Recreational Drug Use Grid Drug Use : None LILLIAM MOLINA LPN - 05/31/2014 15:13 CDT Source: [facility] [place] POWERCHART Document Id: [id number] CDT!48 documented in this encounter Plan of Treatment Not on filedocumented as of this encounter Procedures Procedure Name Priority Date/Time Associated Diagnosis Comme nts RAPID STREP A Routine 05/31/2014 3:27 PM Results for this SCREEN CDT procedure are i n the results section. RAPID STREP A Routine 05/31/2014 3:27 PM Results for this SCREEN CDT procedure are i n the results section. documented in this encounter Results Rapid Strep A Screen (05/31/2014 3:27 PM CDT) [facility] [employer] Method Time Signature HXRapid Strep POWERCHART Confirmation HXPre Negative for POWERCHART Group A Strep by culture. HXFinal Negative for POWERCHART Group A Strep by culture. Specimen Anatomical Collection Method Collection Time Receive d Time (Source) Location / / Volume Laterality Throat 05/31/2014 3:27 PM 4 3:27 CDT PM CDT Telma ThurmanPVicenta LAB MICROBIOLOGY - GENERAL O RDERALORELEI Performing Organization Address City/State/[facility] Code Phon e Number POWERCHART Rapid Strep A Screen (05/31/2014 3:27 PM CDT) [facility] [employer] Method Time Signature HXStrep A POWERCHART Screen Rapid HXFinal Negative for POWERCHART Strep Group A by rapid screen. HXFinal Culture POWERCHART confirmation to follow. Specimen (Source) Anatomical Collection Method Collection Time Re ceived Time Location / / Volume Laterality Throat 05/31/2014 3:27 PM CDT Telma Veloz N.P. LAB MICROBIOLOGY - GENERAL O RDERALORELEI Performing Organization Address City/State/ZIP Code Phon e Number POWERCHART documented in this encounter Visit Diagnoses Not on filedocumented in this encounter
--- OUTSIDE RECORDS SUMMARY | 2022-08-29 12:17 | XMS_ITS | Encounter Summary ---
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
--- OUTSIDE RECORDS SUMMARY | 2022-08-29 12:17 | XMS_ITS | Encounter Summary ---
:1975 Author Organization [facility] Address [address] [place] [address] Care Team Providers Name Role Phone Unavailable Primary Care Provider Unavailable Encounter Details Date Type Department Care Team Description 09/15/2013 Hospital Encounter HX NO MAPPING Provider, Historical Social History Tobacco Use Types [...] spray nostril(s). documented as of this encounter Procedure Notes Zina Valenzuela, L.P.N. - 10/26/2013 9:24 AM CST Asthma Control Test (12 yrs and older) Asthma Control Test (12 yrs and older) Entered On: 12/11/2013 9:25 CDT Performed On: 10/26/2013 9:24 CLERICAL COORDINATOR by ZINA VALENZUELA LPN ACT Past 4 weeks asthma interfered with work, school, or home : None of the Time Past 4 weeks how often short of breath : Once or twice a week Past 4 weeks symptoms effect sleep : Not at all Past 4 weeks how often inhaler or nebulizer used : Not at all Past 4 weeks rate your asthma control : Completely controlled ACT Score : 24 ZINA VALENZUELA LPN - 12/11/2013 9:24 CDT Source: [facility] Document Id: [id number] CDT!8 documented in this encounter Miscellaneous Notes Miscellaneous - Mary Hernandez R.N. - 07/09/2014 8:31 AM CDT *General Message Document Contains Addenda Addendum by TELMA JACOB NP on 09 July 2014 13:31:12 CDT From: TELMA JACOB NP To: MARY HERNANDEZ RN; Sent: 07/09/2014 13:31:12 CDT Subject: RE: *General Message Yes F/u in [place] is ok, I will cancel consult. From: MARY HERNANDEZ RN To: TELMA JACOB NP; Sent: 07/09/2014 08:31:07 CDT Subject: *General Message Hi LilianeJose robb will have her echo on 07-15. She would like the results sent to her airfield defence guard Monse and continue to follow-up with him. Is this OK? If so, can you cancel the cardiovascular order for CF? Thanks Niles Brown Source: [facility] Document Id: [id number] Miscellaneous - Zina Valenzuela LVicentaP.N. - 10/26/2013 9:27 AM CST Quality Measures Quality Measures Entered On: 12/11/2013 9:28 CDT Performed On: 10/26/2013 9:27 CLERICAL COORDINATOR by ZINA VALENZUELA LPN Asthma Adult Asthma Control Test Score : 24 ED visits past yr for asthma w/o hospital stay : 0 Hospitalizations/Overnight Stays in Past yr for Asthma : 0 Asthma Action Plan Provided/Reviewed : Reviewed with the patient Asthma Action Plan Copy : Scanned into EMR ZINA VALENZUELA LPN - 12/11/2013 9:27 CDT Source: [employer] Document Id: [id number] CDT!7 Miscellaneous - Zina Valenzuela L.P.NVicenta - 10/26/2013 9:26 AM CST PHQ-9 PHQ-9 Entered On: 12/11/2013 9:26 CDT Performed On: 10/26/2013 9:26 CLERICAL COORDINATOR by ZINA VALENZUELA LPN PHQ-9 Little interest or pleasure in [...] at all Trouble concentrating on things : More than half the days Moving or speaking slowly; restless or fidgety : Not at all Thoughts that you would be better off /hurting self : Not at all PHQ-9 Calculated Score : 2 Problems make work, home, or dealing with others : Somewhat difficult ZINA VALENZUELA LPN - 12/11/2013 9:26 CDT Source: [employer] Document Id: [id number] CDT!13 Sherriecelljessica - Doug Vaughn L.P.N. - 10/22/2013 10:28 AM CST Med Rec From: DOUG VAUGHN LPN To: JENNA PITTMAN III, MD; Sent: 10/22/2013 10:28:52 CLERICAL COORDINATOR Subject: [facility] Rec Medical records from [facility] have been scanned in and information has been updated to ptschart. Source: [facility] POWERCHART Document Id: [id number] Miscellaneous - Selena Ivey, R.N. - 08/03/2011 5:21 PM CST Quality Measures Quality Measures Entered On: 02/01/2014 17:23 CDT Performed On: 08/03/2011 17:21 CLERICAL COORDINATOR by SELENA IVEY RN Labs Outside Lab Cholesterol : 171 mg/dL Outside Lab HDL : 43 mg/dL Outside Lab LDL : 115 mg/dL Outside Lab Triglycerides : 67 mg/dL Outside Lab Report Location : Scanned into EMR SELENA IVEY RN - 02/01/2014 17:21 CDT Source: [facility] P[facility] Document Id: [id number] CDT!7 documented in this encounter Plan of Treatment Not on filedocumented as of this encounter Visit Diagnoses Not on filedocumented in this encounter Additional Health Concerns Assessment Noted Time PHQ-9 Depression Total Score: 2 10/26/2013 9:26 AM CLERICAL COORDINATOR documented as of this encounter
--- OUTSIDE RECORDS SUMMARY | 2022-08-29 12:17 | XMS_ITS | Encounter Summary ---
:1975 Author Organization [facility] Address [address] [place] [address] Care Team Providers Name Role Phone Unavailable Primary Care Provider Unavailable Encounter Details Date Type Department Care Team Description 08/04/2013 Hospital Encounter HX NO MAPPING Leah Martini M.D. 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
--- OUTSIDE RECORDS SUMMARY | 2022-08-29 12:17 | XMS_ITS | Encounter Summary ---
:1975 Author Organization [facility] Address [address] [place] [address] Care Team Providers Name Role Phone Unavailable Primary Care Provider Unavailable Encounter Details Date Type Department Care Team Description 07/06/2013 Hospital Encounter HX NO MAPPING Escobar Nesbitt M.D. 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
--- OUTSIDE RECORDS SUMMARY | 2022-08-29 12:17 | XMS_ITS | Encounter Summary ---
:1975 Author Organization [facility] Address [address] [place] [address] Care Team Providers Name Role Phone Unavailable Primary Care Provider Unavailable Encounter Details Date Type Department Care Team Description 08/04/2013 Hospital Encounter HX NO MAPPING Provider, Historical [...] spray nostril(s). documented as of this encounter Miscellaneous Notes Miscellaneous - Conversion, Historical Provider Ser - 08/04/2013 12:00 AM EXTRUSION MACHINE OPERATOR [id number] Client: [facility] [place] After Hours ExpertRN Call ID: [id number] Patient Name: Mahad Service Date/Time: August 04, 2013 19:34 Duration: 00:12:51 Age: 37 Y Provider: Telma Alva R.N. Pager: Birthdate: 1975 Sex: F Address: [address] City: [place], [place] Service: [facility] CHIEF COMPLAINT / PURPOSE OF VISIT Triage nurse call: Alcon Zamora is a 37 year old woman with vomiting or nausea and a request for a referral Vomiting and headache.. Calling from: [phone] HISTORY OF PRESENT ILLNESS: 1. Vomiting or [...] Advice 4 hours. Caller agrees Carepoints reviewed: ?? Don't eat or drink anything for one hour after vomiting. Then take small, frequent sips (1 to 2 teaspoons, or 5 to 10 milliliters) of oral rehydration solution (Pedialyte, Ricelyte, others) every 10minutes. ?? Eat bland foods. Start with small portions and gradually increase amounts as tolerated. Good choices include soda crackers, cereal, potatoes, rice, applesauce, noodles and bland soups. ?? Contact the nurse line for further advice if your symptoms persist or worsen, or if new symptoms develop. ?? Follow the instructions given by your health care provider. Follow up directly with that health care provider as needed. REFERRALS: Referral type: provider or program referral ([facility] service for Dr. Weiner, Orthopedics, [place] ) FINAL CALL DETAILS: Deliver call summary through email - Not eligible Intended level of care if assessment was not available: Routine appointment Caller verbalized an understanding of the information and instructions given Caller's primary language: Bolivian PERTINENT NEGATIVES No: charts accessed (none selected from list) Source: [facility] RWHXTRANSXRTFSYS Document Id: [id number] documented in this encounter Plan of Treatment Not on filedocumented as of this encounter Visit Diagnoses Not on filedocumented in this encounter Additional Health Concerns Assessment Noted Time PHQ-9 Depression Total Score: 8 09/18/2012 7:41 AM EXTRUSION MACHINE OPERATOR documented as of this encounter
--- OUTSIDE RECORDS SUMMARY | 2022-08-29 12:17 | XMS_ITS | Encounter Summary ---
:1975 Author Organization [facility] Address [address] [place] [address] Care Team Providers Name Role Phone Unavailable Primary Care Provider Unavailable Encounter Details Date Type Department Care Team Description 09/14/2013 Hospital [facility] Bethany Renee M.D. [address] [place], [place] [phone] (Wo rk) Social History [...] encounter Progress Notes Leah Martini M.D. - 09/14/2013 8:30 AM CST [id number] CLINIC ENCOUNTER DATE OF SURGERY: 08/04/2013. PROCEDURE [...] as-needed basis. Leah Martini M.D. 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
--- OUTSIDE RECORDS SUMMARY | 2022-08-29 12:17 | XMS_ITS | Encounter Summary ---
:1975 Author Organization [facility] Address [address] [place] [address] Care Team Providers Name Role Phone Unavailable Primary Care Provider Unavailable Encounter Details Date Type Department Care Team Description 07/29/2013 Hospital Encounter [facility] Michael Chua, RVicentaN. 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
--- OUTSIDE RECORDS SUMMARY | 2022-08-29 12:17 | XMS_ITS | Encounter Summary ---
:1975 Author Organization [facility] Address [address] [place] [address] Care Team Providers Name Role Phone Unavailable Primary Care Provider Unavailable Encounter Details Date Type Department Care Team Description 11/02/2013 Hospital Encounter [facility] Dahlia Mayes P.A.-C., M.S. Social History Tobacco Use Types Packs/Day Years [...] documented as of this encounter Progress Notes Conversion, Historical Provider Ser - 11/02/2013 1:30 PM CST [id number] CLINIC ENCOUNTER CHIEF COMPLAINT Postop visit #3 [...] At this date I did discuss with Vicenta Noah that I did not feel that it [...] did review this case with Dr. Martini. Dahlia Morley PA-C AMS/ph cc: [facility] Document Id: [id number] documented in this encounter Plan of Treatment Not on filedocumented as of this encounter Visit Diagnoses Not on filedocumented in this encounter Additional Health Concerns Assessment Noted Time PHQ-9 Depression Total Score: 2 10/26/2013 9:26 AM NAT INSTRUCTOR documented as of this encounter
--- OUTSIDE RECORDS SUMMARY | 2022-08-29 12:17 | XMS_ITS | Encounter Summary ---
:1975 Author Organization [facility] Address [address] [place] [address] Care Team Providers Name Role Phone Unavailable Primary Care Provider Unavailable Encounter Details Date Type Department Care Team Description 09/15/2013 Hospital Encounter HX NO MAPPING Barbaar Rai P.T. [address] [place], [place] [phone] Social History Tobacco Use [...] as of this encounter Progress Notes Radha Rai P.T. - 09/15/2013 1:00 PM CST [id number] REHAB SNAPSHOT Referring Provider: Leah Martini M.D. 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 Job [...] to treatment have been reviewed and the patient/resident care associate has been instructed to contact this office if they have any questions or concerns. This plan of care has been discussed with the patient/resident care associate and the patient/resident care associate is in agreement. Frequency / Duration: Patient will be seen for 1 session only. Radha Rai DPRuiz Date: 09/15/2013 I certify that the above [...] Total Time-Based Code Only Minutes: 15 minutes. APPLICATION SUPPORT PRESENT: NA MULTIDISCIPLINARY PATIENT / FAMILY EDUCATION [...] questions, Demonstrated ability, Verbalized recall / understanding Source: [facility] RWHXTRANSXRTFSYS Document Id: [id number] Electronically signed by Jennifer [facility] Data Governance Analyst [id number] at 02/11/2017 2:43 PM CDT documented in this encounter Plan of Treatment Not on filedocumented as of this encounter Visit Diagnoses Not on filedocumented in this encounter Additional Health Concerns Assessment Noted Time PHQ-9 Depression Total Score: 8 09/18/2012 7:41 AM DATA ENTRY CLERK documented as of this encounter
--- OUTSIDE RECORDS SUMMARY | 2022-08-29 12:17 | XMS_ITS | Encounter Summary ---
:1975 Author Organization [facility] Address [address] [place] [address] Care Team Providers Name Role Phone Unavailable Primary Care Provider Unavailable Encounter Details Date Type Department Care Team Description 09/15/2013 Hospital Encounter HX NO MAPPING Leah Martini M.D. 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
--- OUTSIDE RECORDS SUMMARY | 2022-08-29 12:17 | XMS_ITS | Encounter Summary ---
:1975 Author Organization [facility] Address [address] [place] [address] Care Team Providers Name Role Phone Unavailable Primary Care Provider Unavailable Encounter Details Date Type Department Care Team Description 07/17/2013 Hospital Encounter HX NO MAPPING Koko Madrigal M.D. [address] [place], [place] [address] Social History Tobacco Use [...] Depression Total Score: 8 09/18/2012 7:41 AM WHALE TRAINER documented as of this encounter
--- OUTSIDE RECORDS SUMMARY | 2022-08-29 12:17 | XMS_ITS | Encounter Summary ---
:1975 Author Organization [facility] Address [address] [place] [address] Care Team Providers Name Role Phone Unavailable Primary Care Provider Unavailable Encounter Details Date Type Department Care Team Description 07/23/[address] [facility] Angela Piña L.P.N. [address] [place], [place] [phone] Social History Tobacco Use [...] of this encounter Miscellaneous Notes Miscellaneous - Poppy Piña, L.P.N. - 07/23/2013 12:00 AM CST [id number] [place] [address] SURGERY SCHEDULING CHECKLIST - Orthopedic Surgery* Patient Name: Alcon Zamora Date of : 1975 Gender: female Patient Phone numbers: [phone] (home) Best Phone # to be contacted at: above. BMI: Estimated Body mass index is 29.80 kg/(mcalculated from the following: Height as of 04/21/13: 5' 8.5(1.74 m). Weight as of 07/06/13: 198 lb 13.7 oz(90.2 kg). SURGERY DATE: 08/04/13 Outpatient Procedure Surgeon:Lianet Anesthesia: Choice Procedure as written in on Consent: Left knee arthroscopy, partial meniscectomy, possible meniscal sauserization PROCEDURE:Aarthroscopic Meniscectomy - KNEE SCOPE,MED/LAT MENISECTOMY - [id number] meniscal sauserization Surgeon Time: 1.5-2 hour Diagnosis: torn meniscus Pre-Op MD: Christopher Latex Allergy: No Work Comp: NO SPECIAL EQUIPMENT/SPECIAL INSTRUCTION Special Equipment needed: Lianet's leg donald Special Instructions/Prep: n/a Radiology Needs: None Xray location: [facility] date: MRI done 07/17/13 Out of Town: n/a Date: n/a OT Post-Op appt needed: NO Metal Removal : No CPM Post-Op: no - Be sure MD has placed order on Order Set. Surgery Brochure given: Yes Clinic section complete - Please send this to the appropriate group(s). Back Case - fitted for back brace: No If OT appt needed - setup one hour after clinic post-op appt - NA Total Joint class scheduled: Date NA Post-op appt made: 7-10 days for 15 minutes Roller Hand requested: NA DISCHARGE PLANNING ASSESSMENT: Plan after Discharge: Home - With caregiver/responsible person able to drive patient home and stay with them to provide care as needed. With help from . How are you getting home upon discharge from medical center? Social Service concerns: No PATIENT NAME: Alcon Zamora DATE: July 23, 2013 DATE OF :1975 BMI: Estimated Body mass index is 29.80 kg/(linda(90.2 kg). ANESTHESIA Any possibility you could be ? No LMP: hysterectomy Do you have a diagnosis of sleep apnea?No If yes, do you use a CPAP or BiPAP machine? No Do you have a history of snoring? No Do you have a history of ceasing breathing while sleeping? No Have you been told that it is difficult to place a breathing tube in your airway (intubate)? No Do you or a family member have a history of high fever after anesthesia (malignant hyperthermia)? No Do you have a history of severe nausea and vomiting after anesthesia? No Do you have motion sickness? No Do you have a history of severe reaction to anesthesia? No Do you have mandaen or other objections to blood transfusion? No SKIN ASSESSMENT: Chart review: Is patient 18 yo or older? Yes If any answer is no to above - Indicate no to skin alert and delete other assessment questions. BMI <19 or >40 no Any other documented risk factors in EMR that indicate higher risk for pressure ulcer? No Are you chair-bound or unable to reposition yourself? No Do you have impaired sensation? No If yes to any of the above - indicate yes for skin alert below and route letter to the OR Plan: Skin Alert and routed to OR Control Staff? 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
--- OUTSIDE RECORDS SUMMARY | 2022-08-29 12:17 | XMS_ITS | Encounter Summary ---
:1975 Author Organization [facility] Address [address] [place] [address] Care Team Providers Name Role Phone Unavailable Primary Care Provider Unavailable Encounter Details Date Type Department Care Team Description 07/15/2014 Hospital Encounter HX [facility] Rosalie Louis, N.P. [address] [place] [phone] (Wo rk) Social History Tobacco Use [...] - - Height 174 cm (5' 8.5) 07/15/2014 11:04 AM CDT Body Mass Index - - [...]
--- OUTSIDE RECORDS SUMMARY | 2022-08-29 12:17 | XMS_ITS | Encounter Summary ---
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
--- OUTSIDE RECORDS SUMMARY | 2022-08-29 12:17 | XMS_ITS | Encounter Summary ---
:1975 Author Organization [facility] Address [address] [place] [address] Care Team Providers Name Role Phone Unavailable Primary Care Provider Unavailable Encounter Details Date Type Department Care Team Description 07/23/2013 Hospital Encounter [facility] Bethany Renee M.D. [address] [place], [place] [phone] (Wo rk) Social History [...] encounter Progress Notes Leah Martini M.D. - 07/23/2013 11:00 AM CST [id number] CLINIC ENCOUNTER Ms. Zamora returns today to [...] see her on the day of surgery. 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
--- OUTSIDE RECORDS SUMMARY | 2022-08-29 12:17 | XMS_ITS | Encounter Summary ---
:1975 Author Organization [facility] Address [address] [place] [address] Care Team Providers Name Role Phone Unavailable Primary Care Provider Unavailable Encounter Details Date Type Department Care Team Description 08/04/2013 Hospital Encounter HX NO MAPPING Leah Martini M.D. 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
--- OUTSIDE RECORDS SUMMARY | 2022-08-29 12:17 | XMS_ITS | Encounter Summary ---
:1975 Author Organization [facility] Address [address] [place] [address] Care Team Providers Name Role Phone Unavailable Primary Care Provider Unavailable Encounter Details Date Type Department Care Team Description 12/02/[address] [facility] Shoaib Khan III, M.D. [id number] [place] [phone] (Wo rk) Social History Tobacco Use Types Packs/Day Years Used Date Smoking Tobacco: Never Assessed Sex Assigned at Date Recorded Female 02/11/2018 8:36 AM CDT documented as of this encounter Last Filed Vital Signs Vital Sign Reading Time Taken Comments Blood Pressure 133/82 12/02/2013 3:51 PM CDT Pulse 76 12/02/2013 3:51 PM CDT Temperature - - Respiratory Rate 16 12/02/2013 3:51 PM CDT Oxygen Saturation - - Inhaled Oxygen Concentration - - Weight 91 kg (200 lb 9.9 oz) 12/02/2013 3:51 PM CDT Height 174 cm (5' 8.5) 12/02/2013 3:51 PM CDT Body Mass Index 30.06 12/02/2013 3:51 PM CDT documented in this encounter Medications [...] documented as of this encounter Progress Notes Len Gonzalez M.D. - 12/02/2013 3:27 PM CDT [id number] CHIEF COMPLAINT/REASON FOR VISIT ADHD. HISTORY OF PRESENT ILLNESS Ms. Ty is a 38-year-old white female who is here today for followup ADHD. She has been on Concerta for a month now and has noticed that she does not like the feeling she gets when she takes it. She is hoping that there is something with a little bit more control to it. She normally states that she is able to sustain attention longer using that medication. She has been able to maintain a job. With regard to her depression she is hoping to decrease her overall Celexa dose to 10mg by mouth daily. Her depression in the past has been very well controlled. PHQ-9 score is 0. MONAE-7 score 11. SYSTEMS REVIEW Pertinent positives and negative are noted above. The remainder of the complete review of systems are negative. PAST MEDICAL/SURGICAL HISTORY Reviewed in [facility]. PHYSICAL EXAMINATION VITAL SIGNS: Temperature 36.7, pulse 76, respirations 16, blood pressure 133/82, weight 91 kg. GENERAL: The patient is alert and cooperative. She is in no acute distress at this time. PSYCH: The patient makes appropriate eye contact. Speech is not pressured or labored. She smiles appropriately. PHQ-9 score 0. MONAE-7 score is 11. IMPRESSION/REPORT/PLAN 1. Attention deficit hyperactivity disorder, inattentive type. 2. 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 PLAN: 1. The patient will be switched to methylphenidate immediate release 10 mg by mouth twice daily. Potential side effects include anorexia and weight loss. We certainly will watch for this. She will let me know in a month if that medication is working for her and if so I will provide her with further pre scriptions. 2. With regard to her Celexa this was decreased to 10 mg by mouth daily. A new prescription was sentto her pharmacy. Possible side effects were discussed with her as she transitions to a lower dose. Again, she will call us in a month and let us know how things are going. 3. Also note, ACT score 23. Asthma action plan scanned into the patient's chart. Continue albuterol. Her questions were answered and reassurance was given. Len Gonzalez M.D./[facility] Electronically Signed By: LEN GONZALEZ III, MD On: 12/04/2013 08:27 AM Source: [facility] MHSDOLBEYNONRADSYS Document Id: [id number] documented in this encounter Procedure Notes Doug Vaughn L.PVicentaN. - 12/02/2013 4:31 PM CDT Asthma Control Test (12 yrs and older) Asthma Control Test (12 yrs and older) Entered On: 12/02/2013 16:32 CDT Performed On: 12/02/2013 16:31 CDT by DOUG VAUGHN LPN ACT Past 4 weeks asthma interfered [...] : Completely controlled ACT Score : 24 DOUG VAUGHN LPN - 12/02/2013 16:31 CDT Source: [facility] POWERCHART Document Id: [id number] CDT!8 documented in this encounter Miscellaneous Notes Miscellaneous - Jorge Saunders - 08/29/2015 3:10 PM CST Quality Measure - PHQ9 From: JORGE SAUNDERS Sent: 08/29/2015 15:10:23 SOFT BOARDER Subject: Quality Measure - PHQ9 This patient has been screened for quality measure compliance. The patient is due for a PHQ9 update and does not currently have any upcoming office visits scheduled. The Patients previous PHQ9 results were: Date: 11/16/2014 Score: 1 Thank you Source: [facility] POWERCHART Document Id: [id number] Miscellaneous - Capri Lozada R.N. - 01/22/2014 1:46 PM CDT Med Management Document Contains Addenda Addendum by CAPRI LOZADA RN on 27 Jan 2014 13:16:21 CDT From: CAPRI LOZADA RN To: CAPRI LOZADA RN; Sent: 01/27/2014 13:16:21 CDT Subject: RE: Med Management pt reports she isn't taking her ADD meds daily and doesn't need a refill right now. She also went off her Celexa but didn't like it and restarted it a week ago at 10mg. She declined todo a PHQ9 over the phone today, stated she was back to where she was before she went off of them. Addendum by LEN GONZALEZ III, MD on 27 Jan 2014 11:59:35 CDT From: LEN GONZALEZ III, MD Sent: 01/27/2014 11:59:34 CDT Subject: RE:Med Management Approved Order:traZODone (traZODone 50 mg oral tablet) 100 mg PO Bedtime 2 tabs for a total of 100mg at bedtime Qty: 60 tab(s) Refills: 6 Substitutions Allowed Route To Pharmacy - [facility] Signed by LEN GONZALEZ III, MD 01/27/2014 11:59:27 From: CAPRI LOZADA RN To: LEN GONZALEZ III, MD; CAPRI LOZADA RN; Sent: 01/22/2014 13:46:25 CDT Subject: Med Management On hold pending signature Order:traZODone (traZODone 50 mg oral tablet) 100 mg PO Bedtime 2 tabs for a total of 100mg at bedtime Qty: 60 tab(s) Refills: 6 Substitutions Allowed Route To Pharmacy - [facility] Last prescribed as above by Apple Sykes. You saw pt on 12-02-13. Plz review and advise. Source: [facility] [employer] EnergyCHART Document Id: [id number] Electronically signed by Jennifer [facility] Center[facility] Chapter Relations Administrator [id number] at 02/12/2017 9:32 AM CDT Miscellaneous - Doug Vaughn L.P.NVicenta - 12/02/2013 4:33 PM CDT PHQ-9 Document Has Been Updated PHQ-9 Entered On: 12/02/2013 16:34 CDT Performed On: 12/02/2013 16:33 CDT by DOUG VAUGHN LPN PHQ-9 Little interest or pleasure in doing things : Not at all Feeling down, depressed, or hopeless : Not at all Trouble falling or staying asleep, or sleeping too much : Not at all Feeling tired or having little energy : Not at all ASLESONDOUG LPN - 12/02/2013 16:34 CDT Poor appetite or overeating : Not at all ASLESDOUG SERNA LPN - 12/02/2013 16:33 CDT Feeling bad about yourself or that you are a failure : Not at all ASLESONDOUG LPN - 12/02/2013 16:34 CDT Trouble concentrating on things : Not at all ASLESONDOUG LPN - 12/02/2013 16:33 CDT Moving or speaking slowly; restless or fidgety : Not at all Thoughts that you would be better off /hurting self : Not at all PHQ-9 Calculated Score : 0 Problems make work, home, or dealing with others : Not difficult at all DOUG VAUGHN LPN - 12/02/2013 16:34 CDT Source: [facility] [employer] Call Document Id: [id number] CDT!11 Miscellaneous - Doug Vaughn L.P.N. - 12/02/2013 4:32 PM CDT Quality Measures Document Has Been Updated Quality Measures Entered On: 12/02/2013 16:33 CDT Performed On: 12/02/2013 16:32 CDT by DOUG VAUGHN LPN Asthma Adult Asthma Control Test Score : 24 DOUG VAGUHN LPN - 12/02/2013 16:32 CDT Depression PHQ-9 Score : 0 DOUG VAUGHN LPN - 12/02/2013 16:35 CDT Source: [facility] [employer] Call Document Id: [id number] CDT!3 Miscellaneous - Len Gonzalez M.D. - 12/02/2013 4:13 PM CDT Ambulatory Patient Summary [address] [id number] Visit Information Name: CHRISTOPHER TY [facility] Number: [id number] Current Date: 12/02/2013 16:13:03 Physicians Attending Provider: LEN GONZALEZ III, MD Primary Care Provider: LEN GONZALEZ III, MD MELONY CHRISTOPHER MOCTEZUMA has been given the following list of [...] Indications/Special Instructions/Comments/Notes for Patient Medication Changes/Routing albuterol (albuterol) 1-2 puffs, Inhalation as needed albuterol (albuterol CFC free 90 mcg/inh inhalation aerosol) 2 puff(s), Inhalation, every 4 hours asneeded for Shortness of breath / Wheezing Bronchopulmonary dysplasia citalopram (citalopram 10 mg oral tablet) 1 Tablet(s), Oral, once a day Depression This is a CHANGE Routed to [address] [address] FLUoxetine (FLUoxetine 20 mg oral tablet) 1 Tablet(s), Oral, once a day Depression methylphenidate (methylphenidate 10 mg oral tablet) 1 Tablet(s), Oral, two times a day AM & Afternoon This is a CHANGE Routed to Printer traZODone (trazodone 100 mg oral tablet) 2 Tablet(s), Oral, once a day Stop Taking the Following Medications: Medication list as of 12-02-13 16:13 Attention: If you have any medications at home that are not on this list, DO NOT take them until youcontact your provider for clarification. Give a copy of your medication list to your primary care provider. Update your medication list any time medications or doses are changed and carry your medication list at all times in case of emergency. Your Allergies & Intolerances Substance Reaction Symptoms [...] Providers Insomnia, Unspecified Active 11/19/2012 10/22/13 per [facility] Vitamin D deficiency NOS Active 11/19/2012 10/22/13 per [facility] Cervical disc disease* Active 11/19/2012 10/22/13 per [facility] Depression Major Recurrent Mild Active 1999 Disorder Attention Deficit Inattentive Active Your Upcoming Appointments Date Time Location Reason Provider No Appointments found Attention: Contact your local Clinic if further appointment detail needed. Your Goals/Additional instructions: Source: [facility] POWERCHART Document Id: [id number] Miscellaneous - Len Gonzalez M.D. - 12/02/2013 4:13 PM CDT Ambulatory Discharge Medication List [facility] [address] [place], [place] [phone] Visit Information Name: CHRISTOPHER TY [facility] Number: [id number] Visit Date: 12/02/2013 16:13:02 Attending Provider: LEN GONZALEZ III, MD Primary Care Provider: LEN GONZALEZ III, MD CHRISTOPHER TY has been given the following list of medications: Your Medications It is important to take your medications as directed. Use a pill box or chart to help remind you to take your medications. Please let your doctor or nurse know if you have problems taking your medications. Medication/Strength How to Take Indications/Special Instructions/Comments/Notes for Patient Medication Changes/Routing albuterol (albuterol) 1-2 puffs, Inhalation as needed albuterol (albuterol CFC free 90 mcg/inh inhalation aerosol) 2 puff(s), Inhalation, every 4 hours asneeded for Shortness of breath / Wheezing Bronchopulmonary dysplasia citalopram (citalopram 10 mg oral tablet) 1 Tablet(s), Oral, once a day Depression This is a CHANGE Routed to [address] [address] FLUoxetine (FLUoxetine 20 mg oral tablet) 1 Tablet(s), Oral, once a day Depression methylphenidate (methylphenidate 10 mg oral tablet) 1 Tablet(s), Oral, two times a day AM & Afternoon This is a CHANGE Routed to Printer traZODone (trazodone 100 mg oral tablet) 2 Tablet(s), Oral, once a day Stop Taking the Following Medications: Medication list as of 12-02-13 16:13 Attention: If you have any medications at home that are not on this list, DO NOT take them until youcontact your provider for clarification. Give a copy of your medication list to your primary care provider. Update your medication list any time medications or doses are changed and carry your medication list at all times in case of emergency. Additional Information: Source: [facility] POWERCHART Document Id: [id number] Miscellaneous - Asleson, Doug J, L.P.N. 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 Intake/History Entered On: 12/02/2013 15:52 CDT Performed On: 12/02/2013 15:51 CDT by DOUG VAUGHN LPN Intake Chief Complaint : here for f/U on medications Temperature Core : 36.7 DegC(Converted to: 98.1 DegF) Peripheral Pulse Rate : 76 /min Respiratory Rate : 16 /min Heart Rhythm : Regular Systolic Blood Pressure : 133 mmHg Diastolic Blood Pressure : 82 mmHg NIBP Mean : 99 mmHg BP Location : Right upper extremity Blood Pressure Cuff Size : Regular Height : 174 cm(Converted to: 5 ft 9 inch(es), 69 inch(es)) Actual Weight : 91.0 kg(Converted to: 200 lb 10 oz) Weight Source : Standing scale Dosing Weight Clinic : 91 kg Clinic BSA : 2.1 Body Mass Index : 30.06 kg/m2 DOUG VAUGHN LPN - 12/02/2013 15:51 CDT General Info Information Given By : Patient Languages : Albanian DOUG VAUGHN LPN - 12/02/2013 15:51 CDT Subjective Pain Symptoms : No DOUG VAUGHN LPN - 12/02/2013 15:51 CDT Dependent Habits Tobacco Use/Currently Using : No Exposure to Tobacco Smoke : Care provider denies smoking in home Smoking Status : Never smoker DOUG VAUGHN LPN - 12/02/2013 15:51 CDT Tobacco Use Grid Last Use : never DOUG VAUGHN LPN - 12/02/2013 15:51 CDT Caffeine Use Grid Caffeine Use : Current Type : Coffee Frequency : Occasionally DOUG VAUGHN LPN - 12/02/2013 15:51 CDT Recreational Drug Use Grid Drug Use : None DOUG VAUGHN LPN - 12/02/2013 15:51 CDT Source: [facility] [employer] EnergyCHART Document Id: [id number] CDT!38 documented in this encounter Plan of Treatment Not on filedocumented as of this encounter Visit Diagnoses Not on filedocumented in this encounter
--- OUTSIDE RECORDS SUMMARY | 2022-08-29 12:17 | XMS_ITS | Encounter Summary ---
:1975 Author Organization [facility] Address [address] [place] [address] Care Team Providers Name Role Phone Unavailable Primary Care Provider Unavailable Encounter Details Date Type Department Care Team Description 07/28/2013 Hospital Encounter HX [facility] Rubi White M.D. [address] [place] [phone] (Wo rk) Social History Tobacco Use [...] documented as of this encounter Progress Notes Rubi Christopher M.D. - 07/28/2013 3:50 PM CST [id number] HISTORY & PHYSICAL Alcon Zamora : 1975 Date of preoperative exam: 07/28/2013 Date of Surgery: 08/04/13 Type of Anticipated Surgery: left knee arthroscopy with partial meniscectomy Reason for Surgery: left knee pain Consulting Surgeon: Dr. Martini Type of Anesthesia Anticipated: Choice HPI: Alcon [...] had eval for this and Marfan's at [place]. Has had cardiac surgery and ECHO's/CXR's; none of which showed any abnormal aortic arch. She is without any systemic symptoms. . She denies a personal or family history of anesthesia complications or bleeding disorders. 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 Rw mixing tank operator (abstracted) pneumonia several times C mixing tank operator procedure date: 2000 tubal ligation C mixing tank operator procedure date: 1994 D&C C vaginal hysterectomy 01/30/06 Surgical pathology exam 02/2012 excision of lipoma on chest wall Heart cath, closure atrial septal defect 06/20/06 amplatzer septal occluder- serial #[id number] Current Outpatient Prescriptions Medication Status Sig traMADol (ULTRAM) 50 MG tablet Active Take 1 tablet (50 mg) by mouth every 6 hours as needed for pain citalopram (CELEXA) 20 MG tablet Active Take 20 mg by mouth daily fluticasone (FLONASE) 50 MCG/ACT nasal spray Active [place] 2 sprays into both nostrils daily fluticasone-salmeterol (ADVAIR) 250-50 MCG/DOSE diskus inhaler Active Inhale 1 puff into the lungs 2 times daily traZODone (DESYREL) 50 MG tablet Active Take 2 tablets (100 mg) by mouth At Bedtime Take 2 to 2 1/ tablets at bedtime metroNIDAZOLE (METROGEL) 0.75 % gel Active Metrogel 1% not available moxifloxacin (VIGAMOX) 0.5 % ophthalmic solution Place 1 drop Into the left eye every 4 hours (while awake) for 7 days. Allergies Allergen Reactions Erythromycin GI Disturbance Latex Allergy: NO History Substance Use Topics Smoking status: Never Smoker Smokeless tobacco: Never Used Alcohol Use: Yes Comment: minimal History Drug Use No Family History Problem Relation Age of Onset Diabetes No family hx of Hypertension No family hx of Breast CA No family hx of Colon CA No family hx of Alzheimers No family hx of Cancer No family hx of Heart No family hx of Thyroid No family hx of reviewed 06/05/2006 Anesthesia No family hx of Blood Disease No family hx of Stroke Maternal Grandmother and great maternal grandmother [...] No Estimated Body mass index is 29.69 kg/(m from the following: Height as of this [...] or supraclavicular nodes DIAGNOSTICS: Not indicated ASSESSMENT: 1) Knee pain 2) Pre-operative respiratory examination 3) Pre-operative cardiovascular examination 4) Major depressive disorder, recurrent episode, severe, without [...] by: Rubi Christopher MD July 28, 2013 Source: [facility] UNITHXTRANSXRTFSYS Document Id: [id number] Electronically signed by Conversion, [facility] Cocoa Room Operator [id number] at 02/11/2017 2:19 PM CDT documented in this encounter Plan of Treatment Not on filedocumented as of this encounter Visit Diagnoses Not on filedocumented in this encounter Additional Health Concerns Assessment Noted Time PHQ-9 Depression Total Score: 8 09/18/2012 7:41 AM ASSISTANT PROFESSOR OF BIOCHEMISTRY documented as of this encounter
--- OUTSIDE RECORDS SUMMARY | 2022-08-29 12:17 | XMS_ITS | Encounter Summary ---
:1975 Author Organization [facility] Address [address] [place] [address] Care Team Providers Name Role Phone Unavailable Primary Care Provider Unavailable Encounter Details Date Type Department Care Team Description 07/15/2014 Hospital Encounter HX [facility] Peter Gonzalez III, M.D. [id number] [place] [phone] (Wo rk) Social History Tobacco Use [...] - Height 174 cm (5' 8.5) 07/15/2014 11:55 AM CDT Body Mass Index - - [...] this encounter Miscellaneous Notes Telephone Encounter - Conversion, Historical Provider Ser - 07/19/2014 3:56 PM CST RE: Lab results Document Contains Addenda Addendum by TELMA VELOZ NP on 19 July 2014 16:02:44 ALCOHOLISM WORKER From: TELMA VELOZ NP To: CHRISTOPHER TY Sent: 07/19/2014 16:02:44 ALCOHOLISM WORKER Subject: RE: Lab results The vitamin d should be reasonable. Hopefully getting your level up will help you feel better as faras energy, mood, pain. I will send your prescription to [facility]. We should plan on rechecking your level about a month after you have finished the prescription. Thanks, Liliane From: EVIE SUNG V ([place] Nurse Line) To: TELMA VELOZ NP; CHRISTOPHER TY Sent: 07/19/2014 15:56:28 ALCOHOLISM WORKER Subject: RE: Lab results Your message has been forwarded to Liliane for review From: CHRISTOPHER TY To: [facility] ([place] Nurse Line) Sent: 07/19/2014 03:16 p.m. ALCOHOLISM WORKER Subject: RE: Lab results Thank you for your message. It has been successfully sent to the appropriate care team. David Momin I would like to try the prescription strength vitamin d. I have not tried the combivent yet due to the garces. I asked the pharmacist if there was a lower cost alternative and he said all the breathing medications are expensive. I am trying to figure out a way to afford it. Hopefully the Vitamin D has a generic option available. Christopher From: TELMA VELOZ NP To: CHRISTOPHER TY Sent: 07/19/2014 14:30:46 ALCOHOLISM WORKER Subject: Lab results David Garcia, hope you had a nice weekend. I have reviewed your lab results. Your TSH (thyroid level) is normal. Your ferritin level is 150 which is also fine. Your vitamin d level is just a bit low at 28, I think most people feel best when there vitamin d levels are close to 50 and less than 30 is considered low. I would recommend we treat you with a course of prescription vitamin d. If you would like to do this let me and I will send a prescription to yourpharmacy. How are things going with the combivent, have you had a chance to try it? Liliane Source: [facility] Document Id: [id number] Miscellaneous - Telma Veloz, N.P. - 07/19/2014 2:30 PM CST Lab results From: TELMA VELOZ RETAIL WAREHOUSE ASSOCIATE To: CHRISTOPHER TY Sent: 07/19/2014 14:30:46 ALCOHOLISM WORKER Subject: Lab results David Jose, hope you had a nice weekend. I have reviewed your lab results. Your TSH (thyroid level) is normal. Your ferritin level is 150 which is also fine. Your vitamin d level is just a bit low at 28, I think most people feel best when there vitamin d levels are close to 50 and less than 30 is considered low. I would recommend we treat you with a course of prescription vitamin d. If you would like to do this let me and I will send a prescription to yourpharmacy. How are things going with the combivent, have you had a chance to try it? Liliane Source: [employer] Document Id: [id number] Electronically signed by Conversion, [facility] Racing Car Driver [id number] at 02/12/2017 12:10 AM CDT documented in this encounter Plan of Treatment Not on filedocumented as of this encounter Procedures Procedure Name Priority Date/Time Associated Diagnosis Comme nts 25-HYDROXYVITAMIN Routine 07/15/2014 12:02 PM Res ults for this D2 AND D3, S CDT procedure are i n the results section. THYROID-STIMULATING Routine 07/15/2014 12:02 PM R esults for this HORMONE-SENSITIVE CDT procedure are in (S-TSH) the results section. FERRITIN, S Routine 07/15/2014 12:02 PM Results for this CDT procedure are i n the results section. documented in this encounter Results Ferritin (07/15/2014 12:02 PM CDT) athologist Signature Ferritin, S 150 11 - 307 POWERCHART MCGL Comment: Test Performed by: [facility] [place] [id number] Imaging Services Director: Se De La Cruz Specimen (Source) Anatomical Collection Method Collection Time Re ceived Time Location / / Volume Laterality Blood 07/15/2014 12:02 PM CDT Telma Veloz N.PVicenta LAB BLOOD ADD-ON Performing Organization Address City/State/ZIP Code Phon e Number POWERCHART 25-Hydroxyvitamin D2 and D3 (07/15/2014 12:02 PM CDT) athologist Signature HX25 HYDROXY D2 <4.0 NGML POWERCHART 25-Hydroxy D3 28 NGML POWERCHART Vitamin D, S 28 NGML POWERCHART Comment: REFERENCE VALUE------ 25-HYDROXY D TOTAL (D2+D3) Optimum level s in the healthy population are 20-50, patients with bone disease may benefit from higher levels within this r juli. Test Performed by: [facility] - [address] [address] Imaging Services Director: Se De La Cruz Specimen (Source) Anatomical Collection Method Collection Time Re ceived Time Location / / Volume Laterality Blood 07/15/2014 12:02 PM CDT Telma Veloz N.P. LAB BLOOD ADD-ON Performing Organization Address City/State/ZIP Code Phon e Number POWERCHART Thyroid-Stimulating Hormone-Sensitive (s-TSH) (07/15/2014 12:02 PM CDT) athologist Signature TSH 4.16 0.30 - 5.00 POWERCHART (Thyrotropin) MCIUML Specimen (Source) Anatomical Collection Method Collection Time Re ceived Time Location / / Volume Laterality Blood 07/15/2014 12:02 PM CDT Telma Veloz N.P. LAB BLOOD ADD-ON Performing Organization Address City/State/ZIP Code Phon e Number POWERCHART documented in this encounter Visit Diagnoses Not on filedocumented in this encounter
--- OUTSIDE RECORDS SUMMARY | 2022-08-29 12:17 | XMS_ITS | Encounter Summary ---
:1975 Author Organization [facility] Address [address] [place] [address] Care Team Providers Name Role Phone Unavailable Primary Care Provider Unavailable Encounter Details Date Type Department Care Team Description 10/26/2013 Hospital Encounter HX [facility] Shoaib Khan III, M.D. [id number] [place] [phone] (Wo rk) Social History Tobacco Use Types Packs/Day Years Used Date Smoking Tobacco: Never Assessed Sex Assigned at Date Recorded Female 02/11/2018 8:36 AM CDT documented as of this encounter Last Filed Vital Signs Vital Sign Reading Time Taken Comments Blood Pressure 120/72 10/26/2013 4:37 PM STUFFER Pulse 61 10/26/2013 4:37 PM STUFFER Temperature - - Respiratory Rate 16 10/26/2013 4:37 PM STUFFER Oxygen Saturation - - Inhaled Oxygen Concentration - - Weight 91.7 kg (202 lb 2.6 oz) 10/26/2013 4:37 PM STUFFER Height - - Body Mass Index 30.64 08/04/2013 8:33 PM STUFFER documented in this encounter Medications at Time [...] documented as of this encounter Progress Notes Jenna Gonzalez M.D. - 10/26/2013 4:22 PM CST [id number] CHIEF COMPLAINT/REASON FOR VISIT ADHD. HISTORY OF PRESENT ILLNESS Ms. Ty is a 38-year-old white female with a past medical history significant for depression and ADHD. I received her outside records from her previous provider and reviewed them. We have decided to move ahead with starting her on medications for her ADHD. She was previously on Concerta 18mg by mouth daily. She did notice any significant side effects or weight loss with that. Additionally, she has had problems with depression in the past. She has taken Celexa 20 mg by mouth daily. She needs a refill of that today. SYSTEMS REVIEW Pertinent positives and negative are noted above. The remainder of the complete review of systems are negative. PAST MEDICAL/SURGICAL HISTORY ADHD. History of bronchopulmonary dysplasia in a . 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 Sinusitis. Pneumonia. Asthma. Fibromyalgia. Post-traumatic stress disorder. Insomnia. Vitamin D deficiency. Cervical disk disease. PHYSICAL EXAMINATION VITAL SIGNS: Temperature 36.4, pulse 61, respirations 16, blood pressure 120/72, 02 sat 98% on room air, weight 91.7 kg. GENERAL: Patient is alert and cooperative. She is in no acute distress at this time. PSYCH: The patient makes appropriate eye contact. Speech is not pressured or labored. She smiles appropriately. LUNGS: Clear to auscultation bilaterally without expiratory wheezes or rhonchi. IMPRESSION/REPORT/PLAN 1. Attention deficit hyperactivity disorder, inattentive type. 2. Major depressive disorder with recurrent episode, mild. 3. History of asthma. PLAN: 1. With regard to her ADHD, I will give her a prescription for Concerta 18 mg by mouth daily. I willplan on seeing her back in a month for followup to find out if the medications are working appropriately. 2. With regard to her depression I will refill her Celexa today 20 mg by mouth daily. Repeat PHQ-9 in 1 month. 3. Asthma. The patient has an asthma control test score of 23. She will continue on the current regimen. Note her triggers are smoking, weather, pollen, floaters, outdoor air, URI, exercise, dust mites, pet dander, mold. For now, her questions were answered and reassurance given. Jenna Gonzalez M.D./[facility] Electronically Signed By: JENNA GONZALEZ III, MD On: 12/04/2013 08:27 AM Source: [facility] MHSDOLBEYNONRADSYS Document Id: [id number] documented in this encounter Miscellaneous Notes Miscellaneous - Jenna Gonzalez M.D. - 10/26/2013 5:52 PM CST Ambulatory Patient Summary [address] [id number] Visit Information Name: CHRISTOPHER TY [facility] Number: [id number] Current Date: 10/26/2013 17:52:09 Physicians Attending Provider: JENNA GONZALEZ III, MD Primary Care Provider: JENNA GONZALEZ III, MD CHRISTOPHER TY has been [...] of breath / Wheezing Bronchopulmonary dysplasia citalopram (CeleXA 20 mg oral tablet) 1 Tablet(s), Oral, once a day FLUoxetine (FLUoxetine 20 mg oral tablet) 1 Tablet(s), Oral, once a day Depression New Routed to [facility] [address] [address] methylphenidate (Concerta 18 mg/24 hr oral tablet, extended release) 1 Tablet(s), Oral, once a day (in the morning) ADHD do not crush or chew New Routed to [facility] oxyCODONE-acetaminophen (Percocet 5/325 oral tablet) 1 Tablet(s), Oral, every 6 hours traZODone (trazodone 100 mg oral tablet) 2 Tablet(s), Oral, once a day Stop Taking the Following Medications: Medication list as of 10-26-13 17:52 Attention: If you have any medications at [...] NOS (493.90) Active 03/23/2008 Fibromyalgia Active 06/13/2008 Major Depression Recurrent Episode NOS (296.30) Active 06/14/2008 10/22/13 episodes in 2002,2005,2007 Post-traumatic stress disorder (PTSD) Active 11/19/2012 10/22/13 diagnosed per [facility] Providers ADD. Active 11/19/2012 10/22/13 Dx per [facility] provider Insomnia, Unspecified Active 11/19/2012 10/22/13 per [facility] Vitamin D deficiency NOS Active 11/19/2012 10/22/13 per [facility] Cervical disc disease* Active 11/19/2012 10/22/13 per [facility] Your Upcoming Appointments Date Time Location Reason Provider No Appointments found Attention: Contact your local Clinic if further appointment detail needed. Your Goals/Additional instructions: Source: [facility] POWERCHART Document Id: [id number] FER Miscellaneous - Jenna Gonzalez M.D. - 10/26/2013 5:52 PM CST Ambulatory Depart Summary [place] - [address] [address] Visit Information Name: CHRISTOPHER TY [facility] Number: [id number] Visit Date: 10/26/2013 17:52:07 Attending Provider: JENNA GONZALEZ III, MD Primary Care Provider: JENNA GONZALEZ III, MD CHRISTOPHER TY has been [...] of breath / Wheezing Bronchopulmonary dysplasia citalopram (CeleXA 20 mg oral tablet) 1 Tablet(s), Oral, once a day FLUoxetine (FLUoxetine 20 mg oral tablet) 1 Tablet(s), Oral, once a day Depression New Routed to [facility] [address] [address] methylphenidate (Concerta 18 mg/24 hr oral tablet, extended release) 1 Tablet(s), Oral, once a day (in the morning) ADHD do not crush or chew New Routed to [facility] oxyCODONE-acetaminophen (Percocet 5/325 oral tablet) 1 Tablet(s), Oral, every 6 hours traZODone (trazodone 100 mg oral tablet) 2 Tablet(s), Oral, once a day Stop Taking the Following Medications: Medication list as of 10-26-13 17:52 Attention: If you have any medications at home that are not on this list, DO NOT take them until youcontact your provider for clarification. Give a copy of your medication list to your primary care provider. Update your medication list any time medications or doses are changed and carry your medication list at all times in case of emergency. Additional Information: Source: [facility] POWERCHART Document Id: [id number] FER Miscellaneous - Erinn Connelly L.P.NVicenta - 10/26/2013 4:48 PM CST Health Assessment Health Assessment Entered On: 10/26/2013 16:48 STUFFER Performed On: 10/26/2013 16:48 STUFFER by ERINN CONNELLY LPN, RT Health Assessment Complete Health Assessment Complete or Modified : Annual Health Assessment Annual Health Assessment Completed : Yes ERINN CONNELLY LPN, RT - 10/26/2013 16:48 STUFFER Nutrition Nutrition Risk Factors by History Adult : None ERINN CONNELLY LPN, RT - 10/26/2013 16:48 STUFFER Functional Current Daily Living Assistance : None ERINN CONNELLY LPN, RT - 10/26/2013 16:48 STUFFER Dependent Habits Tobacco Use/Currently Using : No Exposure to Tobacco Smoke : Care provider denies smoking in home Smoking Status : Never smoker ERINN CONNELLY LPN, RT - 10/26/2013 16:48 STUFFER Tobacco Use Grid Last Use : never ERINN CONNELLY LPN, RT - 10/26/2013 16:48 STUFFER Caffeine Use Grid Caffeine Use : Current Type : Coffee Frequency : Occasionally ERINN CONNELLY LPN, RT - 10/26/2013 16:48 STUFFER Recreational Drug Use Grid Drug Use : None ERINN CONNELLY LPN, RT - 10/26/2013 16:48 STUFFER Psychosocial Domestic Abuse Concerns : None ERINN CONNELLY LPN, RT - 10/26/2013 16:48 STUFFER Advance Directive Advanced Directives : No ERINN CONNELLY LPN, RT - 10/26/2013 16:48 STUFFER Educ Needs Learning Style Preference Adult Grid Patient : Demonstration, Printed materials, Verbal explanation, Video/Educational TV Family : None ERINN CONNELLY LPN, RT - 10/26/2013 16:48 STUFFER Source: [facility] POWERCHART Document Id: [id number] STUFFER!31 FER Sherriecelljessica - Erinn Connelly L.P.NVicenta - 10/26/2013 4:37 PM CST Adult Pressure Welder Intake/History Adult Pressure Welder Intake/History Entered On: 10/26/2013 16:42 STUFFER Performed On: 10/26/2013 16:37 STUFFER by ERINN CONNELLY LPN, RT Intake Chief Complaint : f/u medication Temperature Core : 36.4 DegC(Converted to: 97.5 DegF) (LOW) Peripheral Pulse Rate : 61 /min Respiratory Rate : 16 /min Systolic Blood Pressure : 120 mmHg Diastolic Blood Pressure : 72 mmHg NIBP Mean : 88 mmHg BP Location : Left upper extremity Blood Pressure Cuff Size : Large SpO2 : 98 % Oxygen Therapy : Room air Actual Weight : 91.7 kg(Converted to: 202 lb 3 oz) Weight Source : Standing scale Dosing Weight Clinic : 91.7 kg ERINN CONNELLY LPN, RT - 10/26/2013 16:37 STUFFER General Info Information Given By : Patient Preferred Communication Mode : Verbal Languages : Latvian ERINN CONNELLY LPN, RT - 10/26/2013 16:37 STUFFER Subjective Pain Symptoms : No ERINN CONNELLY LPN, RT - 10/26/2013 16:37 STUFFER Dependent Habits Tobacco Use/Currently Using : No Exposure to Tobacco Smoke : Care provider denies smoking in home Smoking Status : Never smoker ERINN CONNELLY LPN, RT - 10/26/2013 16:37 STUFFER Tobacco Use Grid Last Use : never ERINN CONNELLY LPN, RT - 10/26/2013 16:37 STUFFER Caffeine Use Grid Caffeine Use : Current Type : Coffee Frequency : Occasionally ERINN CONNELLY LPN, RT - 10/26/2013 16:37 STUFFER Recreational Drug Use Grid Drug Use : None ERINN CONNELLY LPN, RT - 10/26/2013 16:37 STUFFER Source: [facility] POWERCHART Document Id: [id number] STUFFER!37 FER documented in this encounter Plan of Treatment Not on filedocumented as of this encounter Visit Diagnoses Not on filedocumented in this encounter Additional Health Concerns Assessment Noted Time PHQ-9 Depression Total Score: 2 10/26/2013 9:26 AM STUFFER documented as of this encounter
--- OUTSIDE RECORDS SUMMARY | 2022-08-29 12:17 | XMS_ITS | Encounter Summary ---
:1975 Author Organization [facility] Address [address] [place] [address] Care Team Providers Name Role Phone Unavailable Primary Care Provider Unavailable Encounter Details Date Type Department Care Team Description 06/30/2014 Hospital Encounter HX [facility] Michael Veloz, N.P. [address] [place] [phone] (Wo rk) Social History Tobacco Use [...] - - Height 174 cm (5' 8.5) 06/30/2014 12:01 PM CDT Body Mass Index - - documented [...]
--- OUTSIDE RECORDS SUMMARY | 2022-08-29 12:17 | XMS_ITS | Encounter Summary ---
:1975 Author Organization [facility] Address [address] [place] [address] Care Team Providers Name Role Phone Unavailable Primary Care Provider Unavailable Encounter Details Date Type Department Care Team Description 10/07/2013 Hospital Encounter HX [facility] Citlaly Escobar, R.N. Social History Tobacco Use Types Packs/Day Years [...] Encounter - Conversion, Historical Provider Ser - 10/07/2013 12:00 AM CST [id number] Situation/What is the patients concern/need: Knee incision Clinical Background/Recent Intervention: Pt [...] Pt verbalizes understanding and agrees to plan. 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
--- OUTSIDE RECORDS SUMMARY | 2022-08-29 12:17 | XMS_ITS | Encounter Summary ---
:1975 Author Organization [facility] Address [address] [place] [address] Care Team Providers Name Role Phone Unavailable Primary Care Provider Unavailable Encounter Details Date Type Department Care Team Description 06/29/2014 Hospital Encounter HX [facility] Katrina Veloz, N.P. [address] [place] [phone] (Wo rk) Social History Tobacco Use [...] - - Height 174 cm (5' 8.5) 06/29/2014 10:46 AM CDT Body Mass Index - - [...]
--- OUTSIDE RECORDS SUMMARY | 2022-08-29 12:17 | XMS_ITS | Encounter Summary ---
:1975 Author Organization [facility] Address [address] [place] [address] Care Team Providers Name Role Phone Unavailable Primary Care Provider Unavailable Encounter Details Date Type Department Care Team Description 07/06/2013 Hospital Encounter HX NO MAPPING Escobar Nesbitt M.D. 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
--- OUTSIDE RECORDS SUMMARY | 2022-08-29 12:18 | XMS_ITS | Encounter Summary ---
:1975 Author Organization [facility] Address [address] [place] [address] Care Team Providers Name Role Phone Unavailable Primary Care Provider Unavailable Encounter Details Date Type Department Care Team Description 05/01/2013 Hospital Encounter HX NO MAPPING Javier Shore, P.T. [address] [place], [place] [phone] (Wo rk) Social History Tobacco Use Types Packs/Day Years Used Date Smoking Tobacco: Never Assessed Sex Assigned at Date Recorded Female 02/11/2018 8:36 AM CDT documented as of this encounter Medications at Time of Discharge Medication Sig Dispensed Refills Start Date End Date amphetamine-dextroamphetamin Take 10 mg by 0 03/0 04/201306/07/2018 e (for_ADDERALL XR) 10 mg 24 mouth. hr capsule cyclobenzaprine Take 10 mg by 0 05/16/20122021 (for_FLEXERIL) 10 mg tablet mouth. documented as of this encounter Progress Notes Layne Shore, P.T. - 05/01/2013 12:00 AM CDT [id number] SUMMATION OF EPISODE OF CARE for OUTPATIENT PHYSICAL THERAPY Patient Name: Alcon Zamora : 1975 [facility]: [id number] Dates of Service: 04/17/13-05/01/13 Number of [...] provided: home cervical traction unit. Therapist: Layne CID Date: 05/13/2013 Source: [facility] RWMCHXTRANSXRTFSYS Document Id: [id number] Electronically signed by Conversion, [facility] Vp Customer Development [id number] at 02/11/2017 5:03 PM CDT documented in this encounter Plan of Treatment Not on filedocumented as of this encounter Visit Diagnoses Not on filedocumented in this encounter Additional Health Concerns Assessment Noted Time PHQ-9 Depression Total Score: 8 09/18/2012 7:41 AM FILM EDITOR SUPERVISOR documented as of this encounter
--- OUTSIDE RECORDS SUMMARY | 2022-08-29 12:18 | XMS_ITS | Encounter Summary ---
:1975 Author Organization [facility] Address [address] [place] [address] Care Team Providers Name Role Phone Unavailable Primary Care Provider Unavailable Encounter Details Date Type Department Care Team Description 07/06/2013 Hospital Encounter HX [facility] XRAY Provider, Histori monika Social History Tobacco [...] of this encounter Progress Notes Escobar Nesbitt M.D. - 07/06/2013 4:15 PM CDT [id number] Quick Note: Results discussed with patient at clinic visit. [facility] Document Id: [id number] Electronically signed by Conversion, [facility] Business Teacher [id number] at 02/11/2017 8:04 PM CDT documented in this encounter Plan of Treatment Not on filedocumented as of this encounter Visit Diagnoses Not on filedocumented in this encounter Additional Health Concerns Assessment Noted Time PHQ-9 Depression Total Score: 8 09/18/2012 7:41 AM PIN DRAFTING MACHINE TENDER documented as of this encounter
--- OUTSIDE RECORDS SUMMARY | 2022-08-29 12:18 | XMS_ITS | Encounter Summary ---
:1975 Author Organization [facility] Address [address] [place] [address] Care Team Providers Name Role Phone Unavailable Primary Care Provider Unavailable Encounter Details Date Type Department Care Team Description 05/28/2013 Hospital Encounter HX [facility] Yung Diallo M.D. [address] [place], [place] [address] Social History Tobacco Use [...] Encounter - Conversion, Historical Provider Ser - 05/28/2013 12:00 AM CDT [id number] Alcon: [phone] Patient's insurance doesn't have good coverage at [facility] [place] and would like to have her MRI here at [facility]. Please put in an order. Thanks. Source: [facility] Document Id: [id number] Telephone Encounter - Joya Castelan L.P.N. - 05/28/2013 12:00 AM CDT [id number] Alcon is in need of a standing mri which we do not do here. She has a my chart message into dr. Madrigal about this situation. Will wait to hear what his response is. Source: [facility] Document Id: [id number] Electronically signed by Conversion, [facility] Hat Renovator [id number] at 02/11/2017 4:03 PM CDT Telephone Encounter - Conversion, Historical Provider Ser - 05/28/2013 12:00 AM CDT [id number] Alcon called and has scheduled her MRI with [facility] on 06/05/2013. She also scheduled a follow up with Dr. Madrigal on 06/17/2013 but would like to get in sooner if possible. Source: [facility] Document Id: [id number] Telephone Encounter - Conversion, Historical Provider Ser - 05/28/2013 12:00 AM CDT [id number] Pt was offered an appt in [place] but she works in [employer] so she will leave her appt as is. Source: [facility] Document Id: [id number] documented in this encounter Plan of Treatment Not on filedocumented as of this encounter Visit Diagnoses Not on filedocumented in this encounter Additional Health Concerns Assessment Noted Time PHQ-9 Depression Total Score: 8 09/18/2012 7:41 AM PACKAGING ENGINEER documented as of this encounter
--- OUTSIDE RECORDS SUMMARY | 2022-08-29 12:18 | XMS_ITS | Encounter Summary ---
:1975 Author Organization [facility] Address [address] [place] [address] Care Team Providers Name Role Phone Unavailable Primary Care Provider Unavailable Encounter Details Date Type Department Care Team Description 05/01/2013 Hospital Encounter HX NO MAPPING Javier Shore, P.T. [address] [place], [place] [phone] (Wo rk) Social History Tobacco Use Types Packs/Day Years Used Date Smoking Tobacco: Never Assessed Sex Assigned at Date Recorded Female 02/11/2018 8:36 AM CDT documented as of this encounter Medications at Time of Discharge Medication Sig Dispensed Refills Start Date End Date amphetamine-dextroamphetamin Take 10 mg by 0 /0 04/201306/07/2018 e (for_ADDERALL XR) 10 mg 24 mouth. hr capsule cyclobenzaprine Take 10 mg by 0 05/16/20122021 (for_FLEXERIL) 10 mg tablet mouth. documented as of this encounter Progress Notes Layne Shore, P.T. - 05/01/2013 11:30 AM CDT [id number] PHYSICAL THERAPY DAILY VISIT NOTES Visits Used [...] Total Time-Based Code Only Minutes: 10 minutes. Recruitment Assistant Present: SONALI Therapist: Layne CID Source: [facility] RWHXTRANSXRTFSYS Document Id: [id number] Electronically signed by Conversion, [facility] B2B Account Executive [id number] at 02/11/2017 5:03 PM CDT documented in this encounter Plan of Treatment Not on filedocumented as of this encounter Visit Diagnoses Not on filedocumented in this encounter Additional Health Concerns Assessment Noted Time PHQ-9 Depression Total Score: 8 09/18/2012 7:41 AM SHEEP SHEARER documented as of this encounter
--- OUTSIDE RECORDS SUMMARY | 2022-08-29 12:18 | XMS_ITS | Encounter Summary ---
:1975 Author Organization [facility] Address [address] [place] [address] Care Team Providers Name Role Phone Unavailable Primary Care Provider Unavailable Encounter Details Date Type Department Care Team Description 05/30/2013 Hospital Encounter [facility] Apple Sykes M.D. [address] [place] [address] (Wo rk) Social History Tobacco Use Types [...] Depression Total Score: 8 09/18/2012 7:41 AM AUDITING CONTROL CLERK documented as of this encounter
--- OUTSIDE RECORDS SUMMARY | 2022-08-29 12:18 | XMS_ITS | Encounter Summary ---
:1975 Author Organization [facility] Address [address] [place] [address] Care Team Providers Name Role Phone Unavailable Primary Care Provider Unavailable Encounter Details Date Type Department Care Team Description 05/06/2013 Hospital Encounter HX NO MAPPING Provider, Historical [...] tablet mouth. documented as of this encounter Plan of Treatment Not on filedocumented as of this encounter Visit Diagnoses Not on filedocumented in this encounter Additional Health Concerns Assessment Noted Time PHQ-9 Depression Total Score: 8 09/18/2012 7:41 AM CLIENT MANAGER LARGE LAW documented as of this encounter
--- OUTSIDE RECORDS SUMMARY | 2022-08-29 12:18 | XMS_ITS | Encounter Summary ---
:1975 Author Organization [facility] Address [address] [place] [address] Care Team Providers Name Role Phone Unavailable Primary Care Provider Unavailable Encounter Details Date Type Department Care Team Description 04/17/2013 - Hospital Encounter HX NO MAPPING Yung Madrigal, 05/13/2013 Tanisha [address] [place], [place] [address] Social History Tobacco Use [...] Depression Total Score: 8 09/18/2012 7:41 AM APPRENTICE/LINEMAN documented as of this encounter
--- OUTSIDE RECORDS SUMMARY | 2022-08-29 12:18 | XMS_ITS | Encounter Summary ---
:1975 Author Organization [facility] Address [address] [place] [address] Care Team Providers Name Role Phone Unavailable Primary Care Provider Unavailable Encounter Details Date Type Department Care Team Description 04/24/2013 Hospital Encounter HX NO MAPPING Javier Shore, P.T. [address] [place], [place] [phone] (Wo rk) Social History [...] encounter Progress Notes Layne Shore, P.T. - 04/24/2013 11:30 AM CDT [id number] PHYSICAL THERAPY DAILY VISIT NOTES Visits Used [...] Total Time-Based Code Only Minutes: 8 minutes. Pipe Out Worker Present: SONALI Therapist: Layne CID [facility] RWMCHXTRANSXRTFSYS Document Id: [id number] documented in this encounter Plan of Treatment Not on filedocumented as of this encounter Visit Diagnoses Not on filedocumented in this encounter Additional Health Concerns Assessment Noted Time PHQ-9 Depression Total Score: 8 09/18/2012 7:41 AM HALL COORDINATOR documented as of this encounter
--- OUTSIDE RECORDS SUMMARY | 2022-08-29 12:18 | XMS_ITS | Encounter Summary ---
:1975 Author Organization [facility] Address [address] [place] [address] Care Team Providers Name Role Phone Unavailable Primary Care Provider Unavailable Encounter Details Date Type Department Care Team Description 06/05/2013 Hospital Encounter HX NO MAPPING Provider, Historical [...] Depression Total Score: 8 09/18/2012 7:41 AM SEAMAN OFFICER documented as of this encounter
--- OUTSIDE RECORDS SUMMARY | 2022-08-29 12:18 | XMS_ITS | Encounter Summary ---
:1975 Author Organization [facility] Address [address] [place] [address] Care Team Providers Name Role Phone Unavailable Primary Care Provider Unavailable Encounter Details Date Type Department Care Team Description 05/11/2013 Hospital Encounter HX [facility] ENT Provider, Historic al Social History Tobacco Use Types Packs/Day Years [...] documented as of this encounter Progress Notes Westley Bates M.D. - 05/11/2013 8:30 AM CDT [id number] CLINIC ENCOUNTER CHIEF COMPLAINT: Difficulty breathing through [...] patient questionnaire and her medical history in [facility] were all reviewed. 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 She lives over in [place]. She has not been a smoker. REVIEW [...] nasal hygiene. Westley Bates M.D. SELVIN//law cc: Source: [facility] Document Id: [id number] Electronically signed by Conversion, [facility] Parent Educator [id number] at 02/11/2017 5:03 PM CDT Westley Bates M.D. - 05/11/2013 8:30 AM CDT [id number] This office note has been dictated by Wetsley Bates MD. Source: [facility] Document Id: [id number] Electronically signed by Conversion, [facility] Parent Educator [id number] at 02/11/2017 5:03 PM CDT documented in this encounter Plan of Treatment Not on filedocumented as of this encounter Visit Diagnoses Not on filedocumented in this encounter Additional Health Concerns Assessment Noted Time PHQ-9 Depression Total Score: 8 09/18/2012 7:41 AM GROUP HOME MANAGER documented as of this encounter
--- OUTSIDE RECORDS SUMMARY | 2022-08-29 12:18 | XMS_ITS | Encounter Summary ---
:1975 Author Organization [facility] Address [address] [place] [address] Care Team Providers Name Role Phone Unavailable Primary Care Provider Unavailable Encounter Details Date Type Department Care Team Description 07/06/2013 Hospital Encounter [facility] Escobar Nesbitt M.D. [address] [place] [address] (Wo rk) Social History Tobacco Use Types [...] Progress Notes Escobar Nesbitt M.D. - 07/06/2013 3:05 PM CDT [id number] SUBJECTIVE: Chief Complaint Patient presents with Musculoskeletal Problem Left knee swelling and numbness [...] this patient. 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 Current Outpatient Prescriptions Medication Sig traMADol (ULTRAM) 50 MG tablet Take 1 tablet (50 mg) by mouth every 6 hours as needed for pain citalopram (CELEXA) 20 MG tablet Take 20 mg by mouth daily fluticasone (FLONASE) 50 MCG/ACT nasal spray Caspar 2 sprays into both nostrils daily fluticasone-salmeterol (ADVAIR) 250-50 MCG/DOSE diskus inhaler Inhale 1 puff into the lungs 2 timesdaily traZODone (DESYREL) 50 MG tablet Take 2 tablets (100 mg) by mouth At Bedtime Take 2 to 2 1/ tabletsat bedtime moxifloxacin (VIGAMOX) 0.5 % ophthalmic solution Place 1 drop Into the left eye every 4 hours (while awake) for 7 days. metroNIDAZOLE (METROGEL) 0.75 % gel Metrogel 1% not available History Substance Use Topics Smoking status: Never Smoker Smokeless tobacco: Never Used Alcohol Use: Yes minimal ROS: CONSTITUTIONAL:NEGATIVE for [...] Orthopedics. Follow up plan:Follow up as planned. Source: [facility] RWHXTRANSXRTFSYS Document Id: [id number] documented in this encounter Plan of Treatment Not on filedocumented as of this encounter Visit Diagnoses Not on filedocumented in this encounter Additional Health Concerns Assessment Noted Time PHQ-9 Depression Total Score: 8 09/18/2012 7:41 AM MARKET ANALYSIS DIRECTOR documented as of this encounter
--- OUTSIDE RECORDS SUMMARY | 2022-08-29 12:18 | XMS_ITS | Encounter Summary ---
:1975 Author Organization [facility] Address [address] [place] [address] Care Team Providers Name Role Phone Unavailable Primary Care Provider Unavailable Encounter Details Date Type Department Care Team Description 05/19/2013 Hospital Encounter [facility]X [facility] Yung Diallo M.D. [address] [place], [place] [address] Social History Tobacco Use [...] Depression Total Score: 8 09/18/2012 7:41 AM STUDIO SET UP WORKER documented as of this encounter
--- OUTSIDE RECORDS SUMMARY | 2022-08-29 12:18 | XMS_ITS | Encounter Summary ---
:1975 Author Organization [facility] Address [address] [place] [address] Care Team Providers Name Role Phone Unavailable Primary Care Provider Unavailable Encounter Details Date Type Department Care Team Description 05/26/2013 Hospital Encounter [facility] Yung Diallo M.D. [address] [place], [place] [address] Social History Tobacco Use [...] Depression Total Score: 8 09/18/2012 7:41 AM SINGING TEACHER documented as of this encounter
--- OUTSIDE RECORDS SUMMARY | 2022-08-29 12:18 | XMS_ITS | Encounter Summary ---
:1975 Author Organization [facility] Address [address] [place] [address] Care Team Providers Name Role Phone Unassigned, Pcp Primary Care Provider Unavailable Encounter Details Date Type Department Care Team Description 05/12/2013 Historical Ophthalmology [facility] Jonathan Bonilla M.D. [address] [facility] [address] [place], [place] [address] (Wo rk) Social History Tobacco Use Types Packs/Day Years Used Date Smoking Tobacco: Never Assessed Sex Assigned at Date Recorded Female 02/11/2018 8:36 AM CDT documented as of this encounter Progress Notes Jonathan Bonilla M.D. - 05/12/2013 12:56 PM CDT Eye General CHIEF COMPLAINT possible connective tissue disorder; dry eyes HISTORY OF PRESENT ILLNESS Dryness; both eyes ; x many years; constantly; symptoms are mild. Patient reports visual acuity stable in both eyes at distance and near. Denies flashes, floaters, and diplopia. Denies ocular pain. IMPRESSION / REPORT / PLAN #1 Ocular screening exam No evidence of connective tissue disease on ocular exam #2 Refractive error (myopic astigmatism). Plan: spectacle prescription satisfactory, deferred refraction #3 Below average corneal thickness Discussed, informed her that this is why she is not a candidate for refractive eye surgery DIAGNOSIS #1 Ocular screening exam #2 Refractive error (myopic astigmatism). #3 Below average corneal thickness CDM Reports - EYEGEN Id: [id number] Status: Fnl documented in this encounter Plan of Treatment Not on filedocumented as of this encounter Visit Diagnoses Not on filedocumented in this encounter Additional Health Concerns Infection Onset Date Last Indicated Resolved Time COVID19 Pending 07/11/2020 07/11/2020 07/12/2020 5:56 PM CDT COVID19 Pending 07/17/2020 07/17/2020 07/17/2020 9:18 PM BUTCHER APPRENTICE COVID19 Pending 09/19/2020 09/19/2020 10/09/2020 4:45 AM BUTCHER APPRENTICE COVID19 Pending 10/25/2020 10/26/2020 10/27/2020 9:59 AM BUTCHER APPRENTICE COVID19 Pending 06/03/2021 06/03/2021 06/03/2021 9:40 AM CDT COVID19 Pending 06/03/2021 06/03/2021 06/03/2021 10:36 PM CDT COVID19 Pending 08/09/2021 08/09/2021 08/11/2021 12:57 AM BUTCHER APPRENTICE COVID19 Pending 06/26/2022 06/26/2022 06/26/2022 5:47 PM CDT Assessment Noted Time PHQ-9 Depression Total Score: 8 09/18/2012 7:41 AM BUTCHER APPRENTICE documented as of this encounter Care Teams Sales Development Associate Relationship Specialty Start Date End Date Unassigned, Pcp PCP - General Family Medicine 04/22/19 documented as of this encounter
--- OUTSIDE RECORDS SUMMARY | 2022-08-29 12:18 | XMS_ITS | Encounter Summary ---
:1975 Author Organization [facility] Address [address] [place] [address] Care Team Providers Name Role Phone Unavailable Primary Care Provider Unavailable Encounter Details Date Type Department Care Team Description 04/28/2013 Hospital Encounter HX NO MAPPING Javier Shore, P.T. [address] [place], [place] [phone] (Wo rk) Social History [...] encounter Progress Notes Layne Shore, P.T. - 04/28/2013 1:30 PM CDT [id number] PHYSICAL THERAPY DAILY VISIT NOTES Visits Used [...] Total Time-Based Code Only Minutes: 8 minutes. Mobile Home Mechanic Present: SONALI Therapist: Layne CID Source: [facility] RWMCHXTRANSXRTFSYS Document Id: [id number] documented in this encounter Plan of Treatment Not on filedocumented as of this encounter Visit Diagnoses Not on filedocumented in this encounter Additional Health Concerns Assessment Noted Time PHQ-9 Depression Total Score: 8 09/18/2012 7:41 AM WATER METER MECHANIC documented as of this encounter
--- OUTSIDE RECORDS SUMMARY | 2022-08-29 12:18 | XMS_ITS | Encounter Summary ---
:1975 Author Organization [facility] Address [address] [place] [address] Care Team Providers Name Role Phone Unavailable Primary Care Provider Unavailable Encounter Details Date Type Department Care Team Description 05/20/2013 Hospital Encounter HX [facility] Yung Diallo M.D. [address] [place], [place] [address] Social History Tobacco Use [...] Encounter - Conversion, Historical Provider Ser - 05/20/2013 12:00 AM CDT [id number] Phone: Works at [id number] working today til 4:30 Patient called and would like to talk to you about her pain meds for her neck - they are not workingand would like to try something different. Thank you. Delmis Source: [facility] Document Id: [id number] Telephone Encounter - Conversion, Historical Provider Ser - 05/20/2013 12:00 AM CDT [id number] Forward to Source: [facility] Document Id: [id number] Telephone Encounter - Yung Madrigal M.D. - 05/20/2013 12:00 AM CDT [id number] I have Rx'd for tramadol, for neck pain. We will obtain an upright MRI of the C- spine, and should see her after that to review. She has a DX. Of Maryann Unger Source: [facility] Document Id: [id number] Electronically signed by Conversion, [facility] Digital Learning Platforms Manager [id number] at 02/11/2017 4:03 PM CDT Telephone Encounter - Joya Catselan L.P.N. - 05/20/2013 12:00 AM CDT [id number] appt being made for stand up cervical mri at [facility] Source: [facility] Document Id: [id number] Electronically signed by Conversion, [facility] Digital Learning Platforms Manager [id number] at 02/11/2017 4:03 PM CDT documented in this encounter Plan of Treatment Not on filedocumented as of this encounter Visit Diagnoses Not on filedocumented in this encounter Additional Health Concerns Assessment Noted Time PHQ-9 Depression Total Score: 8 09/18/2012 7:41 AM FINANCE MANAGER documented as of this encounter
--- OUTSIDE RECORDS SUMMARY | 2022-08-29 12:18 | XMS_ITS | Encounter Summary ---
:1975 Author Organization [facility] Address [address] [place] [address] Care Team Providers Name Role Phone Unavailable Primary Care Provider Unavailable Encounter Details Date Type Department Care Team Description 04/23/2013 Hospital Encounter [facility] Emilie Raman R.N. [address] [phone] Social History Tobacco Use Types [...] tablet mouth. documented as of this encounter Miscellaneous Notes Telephone Encounter - Jacque Raman RPeter. - 04/23/2013 12:00 AM CDT [id number] Due to pt weight gain she was hoping we could treat her High normal tsh. She is wondering at the very least if she could have it rechecked in one month instead of waiting the 3 months. This request waswritten on pt results so encounter was closed. Source: [facility] Document Id: [id number] Electronically signed by Jennifer [facility] Sprinkler Fitter Helper [id number] at 02/11/2017 1:17 PM CDT documented in this encounter Plan of Treatment Not on filedocumented as of this encounter Visit Diagnoses Not on filedocumented in this encounter Additional Health Concerns Assessment Noted Time PHQ-9 Depression Total Score: 8 09/18/2012 7:41 AM MONOTYPE MECHANIC documented as of this encounter
--- OUTSIDE RECORDS SUMMARY | 2022-08-29 12:18 | XMS_ITS | Encounter Summary ---
:1975 Author Organization [facility] Address [address] [place] [address] Care Team Providers Name Role Phone Unavailable Primary Care Provider Unavailable Encounter Details Date Type Department Care Team Description 05/25/2013 Hospital Encounter HX NO MAPPING Provider, Historical [...] Depression Total Score: 8 09/18/2012 7:41 AM SCIENCE TUTOR documented as of this encounter
--- OUTSIDE RECORDS SUMMARY | 2022-08-29 12:18 | XMS_ITS | Encounter Summary ---
:1975 Author Organization [facility] Address [address] [place] [address] Care Team Providers Name Role Phone Unavailable Primary Care Provider Unavailable Encounter Details Date Type Department Care Team Description 06/17/2013 Hospital Encounter HX [facility] Yung Madrigal M.D. [address] [place], [place] [address] Social History Tobacco Use [...] of this encounter Progress Notes Yung Madrigal M.D. - 06/17/2013 9:40 AM CDT [id number] CLINIC ENCOUNTER Alcon had a flexion extension MRI scan done of her cervical spine and presents with the disc and with the hard copies as well as the interpretation. She has also been to the [facility] where she has been diagnosed as having [...] intact. Alcon has been followed at the [facility] and has another appointment in a week and a half and would like to do her treatments whether they be physical therapy, medications and so forth here in [place]. I have told her we would be more than happy to do that. We would want to receive the diagnosis and treatment plan from the [facility] after she has been seen down there and then could follow the instructions that the physicians at [facility] wish us to do for her. With that in mind I gave her our telephone and fax numbers as well as address and will wait to hear from [facility] and from [place] regarding further needs. Return to clinic Tanisha Canseco/sandor cc: Source: [facility] RWMCHXTRANSXRTFSYS Document Id: [id number] documented in this encounter Plan of Treatment Not on filedocumented as of this encounter Visit Diagnoses Not on filedocumented in this encounter Additional Health Concerns Assessment Noted Time PHQ-9 Depression Total Score: 8 09/18/2012 7:41 AM INTEGRITY DIRECTOR documented as of this encounter
--- OUTSIDE RECORDS SUMMARY | 2022-08-29 12:19 | XMS_ITS | Encounter Summary ---
:1975 Author Organization [facility] Address [address] [place] [address] Care Team Providers Name Role Phone Unavailable Primary Care Provider Unavailable Encounter Details Date Type Department Care Team Description 01/17/2012 Hospital Encounter HX NO MAPPING Provider, Historical Social History Tobacco Use Types Packs/Day Years Used Date Smoking Tobacco: Never Assessed Sex Assigned at Date Recorded Female 02/11/2018 8:36 AM CDT documented as of this encounter Plan of Treatment Not on filedocumented as of this encounter Visit Diagnoses Not on filedocumented in this encounter
--- OUTSIDE RECORDS SUMMARY | 2022-08-29 12:19 | XMS_ITS | Encounter Summary ---
:1975 Author Organization [facility] Address [address] [place] [address] Care Team Providers Name Role Phone Unavailable Primary Care Provider Unavailable Encounter Details Date Type Department Care Team Description 04/17/2013 Hospital Encounter HX NO MAPPING Javier Shore, P.T. [address] [place], [place] [phone] (Wo rk) Social History Tobacco Use Types Packs/Day Years Used Date Smoking Tobacco: Never Assessed Sex Assigned at Date Recorded Female 02/11/2018 8:36 AM CDT documented as of this encounter Medications at Time of Discharge Medication Sig Dispensed Refills Start Date End Date amphetamine-dextroamphetamin Take 10 mg by 0 /04/201306/07/2018 e (for_ADDERALL XR) 10 mg 24 mouth. hr capsule cyclobenzaprine Take 10 mg by 0 05/16/20122021 (for_FLEXERIL) 10 mg tablet mouth. documented as of this encounter Progress Notes Layne Shore, P.T. - 04/17/2013 11:00 AM CDT [id number] REHAB SNAPSHOT Referring Provider: Dr. Kaitlin ESPINOZA [...] for current chief complaint: physical therapy: 1. [facility] clinic: not helpful at all (TENS, aggressive stretching) 2. 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 ?? Procedural interventions: modalities to relieve pain and increase tissue flexibility, manual therapy techniques to improve joint mobility and decrease pain , education in self care / home managementtraining to include instruction in: joint protection principles, symptom control techniques and safeinitiation of a phyiscal exercise program and therapeutic exercise to develop: strength and endurance, range of motion and flexibility Assessment will be ongoing with changes in treatment as indicated. Benefits/risks/alternatives to treatment have been reviewed and the patient/medicare specialist has been instructed to contact this office if they have any questions or concerns. This plan of care has been discussed with the patient/medicare specialist and the patient/medicare specialist is in agreement. Frequency / Duration: Patient [...] Total Time-Based Code Only Minutes: [address] ENGINEER PRESENT: NA MULTIDISCIPLINARY PATIENT / FAMILY EDUCATION [...] Demonstrated ability, Verbalized recall / understanding Source: [facility] RWHXTRANSXRTFSYS Document Id: [id number] Electronically signed by Jennifer [facility] Flue Lining Dipper [id number] at 02/11/2017 1:17 PM CDT documented in this encounter Plan of Treatment Not on filedocumented as of this encounter Visit Diagnoses Not on filedocumented in this encounter Additional Health Concerns Assessment Noted Time PHQ-9 Depression Total Score: 8 09/18/2012 7:41 AM SCALLOP CUTTER documented as of this encounter
--- OUTSIDE RECORDS SUMMARY | 2022-08-29 12:19 | XMS_ITS | Encounter Summary ---
:1975 Author Organization [facility] Address [address] [place] [address] Care Team Providers Name Role Phone Unavailable Primary Care Provider Unavailable Encounter Details Date Type Department Care Team Description 01/23/2012 Hospital Encounter HX NO MAPPING Javier Shore P.T. [address] [place], [place] [phone] (Wo rk) Social History Tobacco Use Types Packs/Day Years Used Date Smoking Tobacco: Never Assessed Sex Assigned at Date Recorded Female 02/11/2018 8:36 AM CDT documented as of this encounter Progress Notes Layne Shore P.T. - 01/23/2012 12:30 PM CDT [id number] PHYSICAL THERAPY DAILY VISIT NOTES Visits Used [...] Total Time-Based Code Only Minutes: 23 minutes. General Laborer Present: SONALI Therapist: Layne CID [facility] RWMCHXTRANSXRTFSYS Document Id: [id number] documented in this encounter Plan of Treatment Not on filedocumented as of this encounter Visit Diagnoses Not on filedocumented in this encounter
--- OUTSIDE RECORDS SUMMARY | 2022-08-29 12:19 | XMS_ITS | Encounter Summary ---
:1975 Author Organization [facility] Address [address] [place] [address] Care Team Providers Name Role Phone Unavailable Primary Care Provider Unavailable Encounter Details Date Type Department Care Team Description 08/22/2012 Hospital Encounter HX NO MAPPING Social History Tobacco Use Types Packs/Day Years Used Date Smoking Tobacco: Never Assessed Sex Assigned at Date Recorded Female 02/11/2018 8:36 AM CDT documented as of this encounter Medications at Time of Discharge Medication Sig Dispensed Refills Start Date End Date cyclobenzaprine Take 10 mg by 0 05/16/20122021 (for_FLEXERIL) 10 mg tablet mouth. documented as of this encounter Plan of Treatment Not on filedocumented as of this encounter Visit Diagnoses Not on filedocumented in this encounter
--- OUTSIDE RECORDS SUMMARY | 2022-08-29 12:19 | XMS_ITS | Encounter Summary ---
:1975 Author Organization [facility] Address [address] [place] [address] Care Team Providers Name Role Phone Unavailable Primary Care Provider Unavailable Encounter Details Date Type Department Care Team Description 01/10/2012 Hospital Encounter HX NO MAPPING Provider, Historical Social History Tobacco Use Types Packs/Day Years Used Date Smoking Tobacco: Never Assessed Sex Assigned at Date Recorded Female 02/11/2018 8:36 AM CDT documented as of this encounter Plan of Treatment Not on filedocumented as of this encounter Visit Diagnoses Not on filedocumented in this encounter
--- OUTSIDE RECORDS SUMMARY | 2022-08-29 12:19 | XMS_ITS | Encounter Summary ---
:1975 Author Organization [facility] Address [address] [place] [address] Care Team Providers Name Role Phone Unavailable Primary Care Provider Unavailable Encounter Details Date Type Department Care Team Description 08/15/2012 Hospital Encounter HX [facility] Zaira Garland P.A.-C., P.A. [address] [place] [address] (Wo rk) Social History Tobacco Use Types Packs/Day Years Used Date Smoking Tobacco: Never Assessed Sex Assigned at Date Recorded Female 02/11/2018 8:36 AM CDT documented as of this encounter Discharge Summaries Marin Doll PSandeep. - 10/15/2012 12:00 AM CST [id number] IMPRESSION/REPORT/PLAN This patient was being seen in physical therapy secondary to costochondritis. Initial evaluation wasperformed and treatment was also performed. When she was initially seen and with treatment performedshe was having good results and she had little to no pain. She was to follow up 1 week later and shenever did come to physical therapy for followup. Therefore we will discontinue therapy at this time. Matt Flores/nimo Electronically Signed By: MARIN DOLL On: 10/16/2012 06:35 AM Source: [facility] MHSDOLBEYNONRADSYS Document Id: [id number] APPLICATION CLERK documented in this encounter Medications at Time of Discharge Medication Sig Dispensed Refills Start Date End Date cyclobenzaprine Take 10 mg by 0 05/16/20122021 (for_FLEXERIL) 10 mg tablet mouth. documented as of this encounter Consult Notes Marin Doll P.T. - 08/15/2012 12:00 AM CST [id number] CHIEF COMPLAINT/REASON FOR VISIT This patient comes in with complaints of pain in her neck and shoulder region. This has been going on since approximately last Saturday. This has been of insidious onset. She notes that she did have a lipoma removed over the anterolateral aspect of her left chest, this being on 02/21/2012. However, she does not feel there is any correlation here. She rates her pain presently as a 4/10 with it being as severe as 8/10. At best it is only 3/10. She would describe the pain as being constant and aching. There is throbbing at times. She does not complain of any tingling or numbness at this time. Activitymakes it worse with rest making it better. She does complain of issues in trying to sleep. 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 She has tried both physical therapy and chiropractic in the past. She has had x-rays as well. CURRENT MEDICATIONS Presently she is on Celexa and trazodone. This does not give her any significant relief at this time. IMPRESSION/REPORT/PLAN Upon observation, the patient does ambulate in therapy with some noted guarding and protective mechanisms going on. She is not a fall risk with her being able to perform the tug test without difficulty. With patient in short sitting we did check overall mobility. She is limited with both rotation to the left and the right, this being approximately 60% normal. There is pain at pathological end range. Also noted is some pain with both forward flexion and cervical extension. Compression is negative at this time. She has tenderness with palpation to bilateral upper traps. Much of this seems to stem more over the left upper trap and down into the rhomboids along the medial border of the shoulder blade.This does not appear to be affecting the thoracic spine itself. This tends to be more radiating awayfrom the spine more in the costal region of the ribs. Again there is noted muscle guarding throughout the mid and lower thoracic region as well. Reflexes are symmetrical bilaterally for upper extremities. Strength does not appear to be affected at this time. Sensory is intact. Slump test is relatively negative. We did treat today with hot packs to the thoracic spine, with electrical stim followed by myofascial techniques throughout the thoracic region. We worked on trigger point therapy of the uppertraps bilaterally, concentrating on the left in comparison to the right. We also worked on suboccipital release techniques. From there we worked on stretching the thoracic outlet as well. We did try some joint mobs of the mid thoracic region and again this did not appear to be affecting this in any way. Patient Education Ready to learn No apparent learning barriers were identified Learning preferences include listening Explained diagnosis and treatment plan Patient/Child/Caregiver expressed understanding of the content GOALS: 1. To decrease pain in the upper and mid thoracic region from a present 4/10 to 2/10 or better. We hope for no exacerbations with this. 2. Patient able to resume work without significant issues. 3. Patient independent with home exercise program addressing strengthening of the area involved. Plan of care will be modalities if necessary along with manual techniques and strengthening. Prognosis is good. IMPRESSION/REPORT/PLAN At this time, the patient appears to have what would look like costochondritis. Plan will be to see the patient today and we will follow-up next week. She felt very good after the initial treatment. Patient Education Ready to learn No apparent learning barriers were identified Learning preferences include listening Explained diagnosis and treatment plan Patient/Child/Caregiver expressed understanding of the content Matt Flores/zoey cc: Delisa Garland P.A.-C. Electronically Signed By: MARIN DOLL On: 08/27/2012 07:38 AM Source: [facility] MHSDOLBEYNBUZZSYS Document Id: [id number] APPLICATION CLERK documented in this encounter Plan of Treatment Not on filedocumented as of this encounter Visit Diagnoses Not on filedocumented in this encounter
--- OUTSIDE RECORDS SUMMARY | 2022-08-29 12:19 | XMS_ITS | Encounter Summary ---
:1975 Author Organization [facility] Address [address] [place] [address] Care Team Providers Name Role Phone Unavailable Primary Care Provider Unavailable Encounter Details Date Type Department Care Team Description 11/21/2012 Hospital Encounter HX NO MAPPING Provider, Historical [...] Depression Total Score: 8 09/18/2012 7:41 AM WEB SEARCH EVALUATOR documented as of this encounter
--- OUTSIDE RECORDS SUMMARY | 2022-08-29 12:19 | XMS_ITS | Encounter Summary ---
:1975 Author Organization [facility] Address [address] [place] [address] Care Team Providers Name Role Phone Unavailable Primary Care Provider Unavailable Encounter Details Date Type Department Care Team Description 08/11/2012 Hospital Encounter HX NO MAPPING David Estes M.D. [address] [place], [place] [phone] (Wo rk) Social History [...]
--- OUTSIDE RECORDS SUMMARY | 2022-08-29 12:19 | XMS_ITS | Encounter Summary ---
:1975 Author Organization [facility] Address [address] [place] [address] Care Team Providers Name Role Phone Unavailable Primary Care Provider Unavailable Encounter Details Date Type Department Care Team Description 09/16/2012 Hospital Encounter HX NO MAPPING Provider, Historical [...] Miscellaneous - Conversion, Historical Provider Ser - 09/16/2012 12:00 AM CATERING COOK [id number] 04/23/2013 - Patient signed up for Kenshot access/proxy. Source: [facility] RWHXTRANSXRTFSYS Document Id: [id number] Miscellaneous - Conversion, Historical Provider Ser - 09/16/2012 12:00 AM CATERING COOK [id number] [facility] [place] [address] [place] [address] Alcon Zamora [address] [facility] [address] April 23, 2013 Dear Alcon Thank you for your interest in becoming a [employer] user. Please access the [employer] web site at: [email or web address] The first time logging in you should click on the 'New User' link. You will then be prompted to enter your access code. Your access code is: [email or web address] Activation Code Expiration: 07/22/2013 1:59 PM The access code listed above will only be used on the initial log in. After verifying your Social Security Number and Date of , you will be prompted to create a user ID and password. This is what you will use in the future to access your records. If you have any questions please call us at this number [phone] Sincerely, [facility] [place] Source: [facility] RWHXTRANSXRTFSYS Document Id: [id number] documented in this encounter Plan of Treatment Not on filedocumented as of this encounter Visit Diagnoses Not on filedocumented in this encounter
--- OUTSIDE RECORDS SUMMARY | 2022-08-29 12:19 | XMS_ITS | Encounter Summary ---
:1975 Author Organization [facility] Address [address] [place] [address] Care Team Providers Name Role Phone Unavailable Primary Care Provider Unavailable Encounter Details Date Type Department Care Team Description 01/30/2012 Hospital Encounter HX NO MAPPING Javier Shore P.T. [address] [place], [place] [phone] (Wo rk) Social History Tobacco Use Types Packs/Day Years Used Date Smoking Tobacco: Never Assessed Sex Assigned at Date Recorded Female 02/11/2018 8:36 AM CDT documented as of this encounter Progress Notes Layne Shore P.T. - 01/30/2012 12:30 PM CDT [id number] PHYSICAL THERAPY DAILY VISIT NOTES and DISCHARGE [...] Total Time-Based Code Only Minutes: 23 minutes. Inhalation Therapist Present: SONALI Therapist: Layne CID Source: [facility] RWMCHXTRANSXRTFSYS Document Id: [id number] documented in this encounter Plan of Treatment Not on filedocumented as of this encounter Visit Diagnoses Not on filedocumented in this encounter
--- OUTSIDE RECORDS SUMMARY | 2022-08-29 12:19 | XMS_ITS | Encounter Summary ---
:1975 Author Organization [facility] Address [address] [place] [address] Care Team Providers Name Role Phone Unavailable Primary Care Provider Unavailable Encounter Details Date Type Department Care Team Description 01/25/2012 Hospital Encounter HX NO MAPPING Javier Shore P.T. [address] [place], [place] [phone] (Wo rk) Social History Tobacco Use Types Packs/Day Years Used Date Smoking Tobacco: Never Assessed Sex Assigned at Date Recorded Female 02/11/2018 8:36 AM CDT documented as of this encounter Progress Notes Layne Shore P.T. - 01/25/2012 10:00 AM CDT [id number] PHYSICAL THERAPY DAILY VISIT NOTES Visits Used [...] Total Time-Based Code Only Minutes: 26 minutes. Gis Professor Present: SONALI Therapist: Layne CID [facility] RWHXTRANSXRTFSYS Document Id: [id number] Electronically signed by Jennifer, [facility] Window Framer [id number] at 02/16/2017 6:12 PM CDT documented in this encounter Plan of Treatment Not on filedocumented as of this encounter Visit Diagnoses Not on filedocumented in this encounter
--- OUTSIDE RECORDS SUMMARY | 2022-08-29 12:19 | XMS_ITS | Encounter Summary ---
:1975 Author Organization [facility] Address [address] [place] [address] Care Team Providers Name Role Phone Unavailable Primary Care Provider Unavailable Encounter Details Date Type Department Care Team Description 08/21/2012 Hospital Encounter HX NO MAPPING Provider, Historical [...]
--- OUTSIDE RECORDS SUMMARY | 2022-08-29 12:19 | XMS_ITS | Encounter Summary ---
:1975 Author Organization [facility] Address [address] [place] [address] Care Team Providers Name Role Phone Unavailable Primary Care Provider Unavailable Encounter Details Date Type Department Care Team Description 08/22/2012 Hospital Encounter HX [facility] EXERCISE [facility] Luis Paez M.D. [address] [place] [address] Social History Tobacco Use Types Packs/Day Years [...] Name Priority Date/Time Associated Diagnosis Comme nts EXERCISE ECG Routine 08/22/2012 3:32 PM SUPPLY ASSISTANT documented in this encounter Results Exercise ECG (08/22/2012 3:32 PM SUPPLY ASSISTANT) Specimen (Source) Anatomical Collection Method Collection Time Re ceived Time Location / / Volume Laterality 08/22/2012 3:32 PM SUPPLY ASSISTANT Tomer Paez M.D. CV STRESS PROCEDURES Performing Organization Address City/State/ZIP Code Phon e Number HX TRACI CONVERSION documented in this encounter Visit Diagnoses Not on filedocumented in this encounter
--- OUTSIDE RECORDS SUMMARY | 2022-08-29 12:19 | XMS_ITS | Encounter Summary ---
:1975 Author Organization [facility] Address [address] [place] [address] Care Team Providers Name Role Phone Unavailable Primary Care Provider Unavailable Encounter Details Date Type Department Care Team Description 02/13/2013 Hospital Encounter [facility]X [facility] Winston Pham O.D. Social History Tobacco Use Types Packs/Day Years [...] of this encounter Progress Notes Winston Villatoro O.D. - 02/13/2013 2:00 PM CDT [id number] CLINIC ENCOUNTER The patient is in for [...] becomes red or inflamed she should return. Winston Villatoro O.D. KMH/lianna cc: [facility] Document Id: [id number] Electronically signed by Conversion, [facility] Intake Specialist [id number] at 02/11/2017 7:06 PM CDT Winston Villatoro O.D. - 02/13/2013 2:00 PM CDT [id number] Pain Questionnaire: Is your visit today because of Pain? NO C.C - RECHECK LEFT EYE HPI - LEFT EYE FEELS BETTER. NO PAIN OR BLURRED VISION. PATIENT TAKING VIGAMOX 1 DROP EVERY 4 HOURS WHILE AWAKE IN LEFT EYE Leticia Rogel 02/13/2013 MEDICATIONS: Current Outpatient Prescriptions Medication Sig moxifloxacin (VIGAMOX) 0.5 % ophthalmic solution Place 1 drop Into the left eye every 4 hours (while awake) for 7 days. traZODone (DESYREL) 100 MG tablet Take 1 tablet by mouth At Bedtime. Beclomethasone Dipropionate (QVAR IN) Inhale into the lungs. metroNIDAZOLE (METROGEL) 0.75 % gel Metrogel 1% not available CELEXA 20 MG OR TABS ONE DAILY . FAMILY HISTORY: Family History Problem Relation Age of Onset Diabetes No family hx of Hypertension No family hx of Stroke No family hx of Breast CA No family hx of Colon CA No family hx of Alzheimers No family hx of Cancer No family hx of Heart No family hx of Thyroid No family hx of reviewed 06/05/2006 Distance Right Eye Left Eye Both Eyes CC 25-1 25 20 SC Pinhole Correction Glasses ON EXAM: HPI ROS Physical Exam Source[facility] Document Id: [id number] Electronically signed by Conversion, [facility] Intake Specialist [id number] at 02/11/2017 7:06 PM CDT documented in this encounter Plan of Treatment Not on filedocumented as of this encounter Visit Diagnoses Not on filedocumented in this encounter Additional Health Concerns Assessment Noted Time PHQ-9 Depression Total Score: 8 09/18/2012 7:41 AM GRANITE FABRICATOR documented as of this encounter
--- OUTSIDE RECORDS SUMMARY | 2022-08-29 12:19 | XMS_ITS | Encounter Summary ---
:1975 Author Organization [facility] Address [address] [place] [address] Care Team Providers Name Role Phone Unavailable Primary Care Provider Unavailable Encounter Details Date Type Department Care Team Description 08/21/2012 Hospital Encounter HX [facility] Yung Madrigal M.D. [address] [place], [place] [address] Social History Tobacco Use [...] encounter Progress Notes Yung Madrigal M.D. - 08/21/2012 8:00 AM CST [id number] CLINIC ENCOUNTER SUBJECTIVE: Alcon is a 36 [...] is 5 feet, 8 inches but her rloalx-at-khnusfrlp measurements are approximately 70 inches, so more [...] for her biannual cardiology examination at the [facility] tomorrow. What I have done today is written a letter summarizing my thoughts and questions about Alcon and while she is in the [facility], suggested to her that she try to get some answers from the skull splitter, perhaps get a rheumatology consult while she [...] to clinic gloria Madrigal M.D. ERIKA/treasure cc: Source[facility] Document Id: [id number] Electronically signed by Conversion, [facility] Recruitment Coordinator [id number] at 02/16/2017 2:10 PM CDT documented in this encounter Miscellaneous Notes Miscellaneous - Yung Madrigal M.D. - 08/21/2012 8:00 AM CST [id number] Alcon Martines Noah [address] [facility] [address] MR# [id number] August 21, 2012 Dear Ms. Alcon Zamora This letter is to confirm our visit in the orthopedic department today for your symptoms of chronic musculoskeletal pain. My findings call into question the following possible diagnoses: 1. Marfan's syndrome or similar connective tissue diseases 2. Polymyalgia rheumatica 3. Fibromyalgia While you are in the [facility] for your cardiology appointment tomorrow, I suggest asking your skull splitter his thoughts, and possibly arranging for a machine cementer to evaluate you. If they feel that none of the above apply, then I would be more than happy to see you again here in [place], and begin some of the treatment options you and I discussed. If there are any questions, please feel free to call. Sincerely, Yung Madrigal M.D. ORTHOPEDIC SURGERY [facility] in [place] Source: [facility] RWHXTRANSXRTFSYS Document Id: [id number] Electronically signed by Conversion, [facility] Recruitment Coordinator [id number] at 02/16/2017 2:10 PM CDT documented in this encounter Plan of Treatment Not on filedocumented as of this encounter Visit Diagnoses Not on filedocumented in this encounter
--- OUTSIDE RECORDS SUMMARY | 2022-08-29 12:19 | XMS_ITS | Encounter Summary ---
:1975 Author Organization [facility] Address [address] [place] [address] Care Team Providers Name Role Phone Unavailable Primary Care Provider Unavailable Encounter Details Date Type Department Care Team Description 04/21/2013 Hospital Encounter HX [facility] Provider, David modi Social History Tobacco Use Types Packs/Day Years [...] Encounter - Conversion, Historical Provider Ser - 04/21/2013 12:00 AM CDT [id number] Kiko-Pharmacist in outpatient pharmacy called to clarify [...] Will return call to Kiko at [phone] [facility] Document Id: [id number] Telephone Encounter - Conversion, Historical Provider Ser - 04/21/2013 12:00 AM CDT [id number] This nurse returned call to Pharmacist Kiko and per Dr. Sykes, pt to take Trazodone 50mg tablets Sig: Take 2 tablets by mouth at bedtime. Kiko stated understanding. Source: [facility] RWHXTRANSXRTFSYS Document Id: [id number] documented in this encounter Plan of Treatment Not on filedocumented as of this encounter Visit Diagnoses Not on filedocumented in this encounter Additional Health Concerns Assessment Noted Time PHQ-9 Depression Total Score: 8 09/18/2012 7:41 AM DINKEY PRESS OPERATOR documented as of this encounter
--- OUTSIDE RECORDS SUMMARY | 2022-08-29 12:19 | XMS_ITS | Encounter Summary ---
:1975 Author Organization [facility] Address [address] [place] [address] Care Team Providers Name Role Phone Unavailable Primary Care Provider Unavailable Encounter Details Date Type Department Care Team Description 06/01/2011 Hospital Encounter HX [facility] Shoaib Gonzalez III, M.D. [address] [address] (Wo rk) Social History Tobacco Use Types Packs/Day Years Used Date Smoking Tobacco: Never Assessed Sex Assigned at Date Recorded Female 02/11/2018 8:36 AM CDT documented as of this encounter Progress Notes Jenna Gonzalez M.D. - 06/01/2011 12:00 AM CDT [id number] CHIEF COMPLAINT/REASON FOR VISIT Chest tightness and difficulty breathing. HISTORY OF PRESENT ILLNESS This is a 35-year-old white female with past medical history significant for bronchopulmonary dysplasia originally diagnosed in 2005. She has resulting COPD from that. She states she normally uses an albuterol inhaler as needed. She has been prescribed Advair Diskus in the past but has not used it due to expense. She states for the last week she has had increased difficulty breathing. She has been using her albuterol inhaler without relief. The inhaler that she has is approximately two years old. She is not sure if her symptoms are exacerbated by environmental factors. This has not been an issue for her before. She does state that she has a mild upper respiratory type infection. CURRENT MEDICATIONS 1. Albuterol. 2. Trazodone for sleep. ALLERGIES Erythromycin. SYSTEMS REVIEW Pertinent positives and negatives are noted above. The remainder of complete review of systems is negative. PAST MEDICAL/ SURGICAL HISTORY 1. Bronchopulmonary dysplasia as . 2. COPD. VITAL SIGNS Temperature 36.2, pulse 102, blood pressure 130/104, O2 sat. 98% on room air. Height 174 cm, weight 84.1 kg, BMI 27.78. PHYSICAL EXAMINATION GENERAL: Patient is alert and cooperative. She is in mild distress at this time. HEENT: Head is atraumatic, normocephalic without deformities. PERRL, EOMs are intact. Ears: External exam with no abnormality, TMs normal bilaterally. Nose midline with normal turbinates. Mouth there is no hyperemia or exudates of the posterior pharynx. NECK: There are no carotid bruits. The thyroid is not palpable or enlarged. LUNGS: Lungs show very tight breath sounds. She has to purse her lips in order to exhale. She does have a wheeze in all lung thomas expiratory in nature. THERAPY: The patient got a DuoNeb in the clinic. She had significant improvement in her symptoms and in chest tightness. IMPRESSION/REPORT/PLAN Chronic airway obstruction secondary to bronchopulmonary dysplasia. PLAN: I gave the patient a prescription for Advair Diskus 250/50 to be taken one inhalation twice daily. I refilled her albuterol inhaler. Instructed if her symptoms do not improve in the next couple days may consider giving her a prescription for nebulizer machine for home. She is concerned about her financial situation and I explained to her that she should use the Advair Diskus on a daily basis. However, she could consider using it more when she feels a cold coming on as this appears to exacerbate her symptoms. She expresses understanding. We will plan on seeing her back in approximately one month for followup to make sure things are going okay. All of her questions were answered and reassurance was given. Jenna Gonzalez III, M.D. / Electronically Signed By: JENNA GONZALEZ III, MD On: 06/14/2011 04:09 PM Source: [facility] MHSDOLBEYNONRADSYS Document Id: [id number] documented in this encounter Miscellaneous Notes Miscellaneous - Jenna Gonzalez M.D. - 06/01/2011 4:26 PM CDT Ambulatory Patient Summary [address] [address] Visit Information Name: CHRISTOPHER TY Current Date: 06/01/2011 16:26:19 Primary Care Provider: JENNA GONAZLEZ III, MD Your Medications Here is a list of your medications. It is important to take your medications as directed. Use a pillbox or chart to help remind you to take your medications. Please let your doctor or nurse know if you have problems taking your medications. Medication/Strength Dose Route Frequency Indications/Special Instructions/Comments albuterol (albuterol CFC free 90 mcg/inh inhalation aerosol) 2 puff(s) Inhalation every 4 hours as needed for Shortness of breath / Wheezing Bronchopulmonary dysplasia fluticasone-salmeterol (Advair Diskus 250 mcg-50 mcg inhalation powder) 1 puff(s) Inhalation two times a day COPD trazodone (trazodone 100 mg oral tablet) 1 tab(s) Oral once a day albuterol (albuterol) 1-2 puffs Inhalation as needed Your Allergies & Intolerances Substance Reaction Symptoms Category Comments erythromycin stomach upset, Drug erythromycin vomiting Drug Your Problem List Problem Status Onset Comments COPD Active 09/16/2000 Bronchopulmonary dysplasia of Active 1975 Your Recommendations We want to make sure you get the tests, immunizations, and guidance you need to stay healthy. Here is a customized list of recommendations, based on information we have in your medical record. Your doctor may have additional recommendations for you, based on your personal medical history and risk factors. You can help us by calling us to make an appointment when you are due for your tests. Additional information regarding recommendations: Test/Treatment Last Done Next Due Additional Information Lipid Panel every 5 years Age 20-75 06/01/2011 Checks blood for good (HDL) and bad (LDL) cholesterol. Know your numbers, they are one indicator of your risk for heart attack and stroke. Vaccine: Flu every 1 year 06/01/2011 Immunization to help prevent you from getting the flu strain expected to be a problem for that year's flu season. Vaccine: Tetanus every 10 years 06/01/2011 Immunization to help prevent you from getting the seriousdisease Tetanus (Lockjaw). Your Upcoming Appointments Date Time Location Reason Provider No Appointments found Your Goals/Additional instructions: Source: [facility] Rei-FrontierCHART Document Id: [id number] Electronically signed by Conversion, [facility] Electric Welder Helper [id number] at 02/17/2017 1:42 PM CDT Aury - Jenna Gonzalez M.D. - 06/01/2011 4:26 PM CDT Ambulatory Depart Summary [address] [place] [address] Visit Information Name: CHRISTOPHER TY Current Date: 06/01/2011 16:26:18 Primary Care Provider: JENNA GONZALEZ III, MD CHRISTOPHER TY has been given the following list of medications: Your Medications It is important to take your medications as directed. Use a pill box or chart to help remind you to take your medications. Please let your doctor or nurse know if you have problems taking your medications. Medication/Strength Dose Route Frequency Indications/Special Instructions/Comments albuterol (albuterol CFC free 90 mcg/inh inhalation aerosol) 2 puff(s) Inhalation every 4 hours as needed for Shortness of breath / Wheezing Bronchopulmonary dysplasia fluticasone-salmeterol (Advair Diskus 250 mcg-50 mcg inhalation powder) 1 puff(s) Inhalation two times a day COPD trazodone (trazodone 100 mg oral tablet) 1 tab(s) Oral once a day albuterol (albuterol) 1-2 puffs Inhalation as needed Additional Information: Yes - Current list of reconciled medications is provided and explained to the patient and/or family, guardian/caregiver. Source: [facility] Rei-FrontierCHART Document Id: [id number] Electronically signed by Conversion, [facility] Electric Welder Helper [id number] at 02/17/2017 1:42 PM CDT Aury - Matias Jeter L.P.N. - 06/01/2011 4:07 PM CDT Health Assessment Health Assessment Entered On: 06/01/2011 16:07 CDT Performed On: 06/01/2011 16:07 CDT by MATIAS JETER LPN Nutrition Nutrition Risk Factors by History Adult: None MATIAS JETER LPN - 06/01/2011 16:07 CDT Functional Current Daily Living Assistance: None MATIAS JETER LPN - 06/01/2011 16:07 CDT Dependent Habits Tobacco Use/Currently Using: No Exposure to Tobacco Smoke: Care provider denies smoking in home MATIAS JETER LPN - 06/01/2011 16:07 CDT Caffeine Use Grid Caffeine Use: Current Type: Coffee Frequency: Occasionally MATIAS JETER LPN - 06/01/2011 16:07 CDT Recreational Drug Use Grid Drug Use: None MATIAS JETER LPN - 06/01/2011 16:07 CDT Psychosocial Domestic Abuse Concerns: None MATIAS JETER LPN - 06/01/2011 16:07 CDT Advance Directive Advanced Directives: No MATIAS JETER LPN - 06/01/2011 16:07 CDT Educ Needs Learning Style Preference Adult Grid Patient: None Family: None MATIAS JETER LPN - 06/01/2011 16:07 CDT Source: [facility] Document Id: [id number] CDT!24 Miscellaneous - Matias Jeter L.P.N. - 06/01/2011 4:00 PM CDT Adult Captain Fishing Vessel Intake/History Adult Captain Fishing Vessel Intake/History Entered On: 06/01/2011 16:07 CDT Performed On: 06/01/2011 16:00 CDT by MATIAS JETER LPN Intake Chief Complaint: Chest tight, hard to breath, wheezing x1 wk, has hx of COPD, coughing up phlem yellow, bright Temperature Core: 36.2C(Converted to: 97.2DegF) (LOW) Peripheral Pulse Rate: 102/min (HI) Systolic Blood Pressure: 130mmHg Diastolic Blood Pressure: 104mmHg (>HHI) NIBP Mean: 113mmHg BP Location: Right upper extremity SpO2: 98% Heart Rhythm: Regular Oxygen Therapy: Room air Height: 174.00cm(Converted to: 5ft 9inch(es), 68.50inch(es)) Actual Weight: 84.100kg(Converted to: 185lb 7oz) Weight Source: Standing scale Dosing Weight Clinic: 84.10kg Clinic BSA: 2.02 Body Mass Index: 27.78kg/m2 MATIAS JETER LPN - 06/01/2011 16:00 CDT Subjective Pain Symptoms: No MATIAS JETER LPN - 06/01/2011 16:00 CDT Dependent Habits Tobacco Use/Currently Using: No Tobacco Use/Last 12 months: No Exposure to Tobacco Smoke: Care provider denies smoking in home Alcohol Use: No MATIAS JETER LPN - 06/01/2011 16:00 CDT Caffeine Use Grid Caffeine Use: Current Type: Coffee Frequency: Occasionally MATIAS JETER LPN - 06/01/2011 16:00 CDT Recreational Drug Use Grid Drug Use: None MATIAS JETER LPN - 06/01/2011 16:00 CDT Allergy Source: [facility] Lamsa Document Id: [id number] CDT!33 documented in this encounter Plan of Treatment Not on filedocumented as of this encounter Visit Diagnoses Not on filedocumented in this encounter
--- OUTSIDE RECORDS SUMMARY | 2022-08-29 12:19 | XMS_ITS | Encounter Summary ---
:1975 Author Organization [facility] Address [address] [place] [address] Care Team Providers Name Role Phone Unavailable Primary Care Provider Unavailable Encounter Details Date Type Department Care Team Description 03/11/2013 Hospital Encounter [facility] Provider, David modi Social History Tobacco Use [...] as of this encounter Progress Notes Mel Tomas - 03/11/2013 3:40 PM CDT [id number] Alcon Zamora is a 37 year old female presenting for Chief Complaint Patient presents with Knee Pain Left knee pain, twisted knee [...] no relief. Current Outpatient Prescriptions Medication Sig traZODone (DESYREL) 100 MG tablet Take 1 tablet by mouth At Bedtime. metroNIDAZOLE (METROGEL) 0.75 % gel Metrogel 1% not available CELEXA 20 MG OR TABS ONE DAILY moxifloxacin (VIGAMOX) 0.5 % ophthalmic solution Place 1 drop Into the left eye every 4 hours (while awake) for 7 days. Past Medical History Diagnosis Date Excessive or frequent menstruation 01/31/06 Hospitalized Hemorrhage complicating a procedure Acute posthemorrhagic anemia Cervicalgia Pain in joint, pelvic region and thigh Allergies Allergen Reactions Erythromycin GI Disturbance Objective: Blood pressure 112/76, [...] soft tissue abnormality. Impression: IMPRESSION: Negative. KAYLIN BOWIE MD Assessment/Plan: 1. Left knee pain (719.46) [...] will have patient follow up with orthopedics Source: [facility] RWHXTRANSXRTFSYS Document Id: [id number] Electronically signed by Conversion, [facility] Mask Inspector [id number] at 02/11/2017 10:39 PM CDT documented in this encounter Plan of Treatment Not on filedocumented as of this encounter Visit Diagnoses Not on filedocumented in this encounter Additional Health Concerns Assessment Noted Time PHQ-9 Depression Total Score: 8 09/18/2012 7:41 AM FISHER NET documented as of this encounter
--- OUTSIDE RECORDS SUMMARY | 2022-08-29 12:19 | XMS_ITS | Encounter Summary ---
:1975 Author Organization [facility] Address [address] [place] [address] Care Team Providers Name Role Phone Unavailable Primary Care Provider Unavailable Encounter Details Date Type Department Care Team Description 02/10/2013 Hospital Encounter [facility] Emilie Raman R.N. [address] [address] Social History Tobacco Use Types [...] Telephone Encounter - Jacque Raman RPeter. - 02/10/2013 12:00 AM CDT [id number] Eye pain L eye with watering reported [...] Pt agreed to this plan of care. Source: [facility] RWHXTRANSXRTFSYS Document Id: [id number] Electronically signed by Jennifer, [facility] Cyber Security Administrator [id number] at 02/11/2017 7:06 PM CDT documented in this encounter Plan of Treatment Not on filedocumented as of this encounter Visit Diagnoses Not on filedocumented in this encounter Additional Health Concerns Assessment Noted Time PHQ-9 Depression Total Score: 8 09/18/2012 7:41 AM PATENT LEATHER SORTER documented as of this encounter
--- OUTSIDE RECORDS SUMMARY | 2022-08-29 12:19 | XMS_ITS | Encounter Summary ---
:1975 Author Organization [facility] Address [address] [place] [address] Care Team Providers Name Role Phone Unavailable Primary Care Provider Unavailable Encounter Details Date Type Department Care Team Description 04/21/2013 Hospital Encounter H[facility] Apple Sykes M.D. [address] [place] [address] (Wo rk) Social History Tobacco Use Types [...] of this encounter Progress Notes Apple Sykes M.D. - 04/21/2013 11:00 AM CDT [id number] Alcon was seen today for establish care. [...] note has been dictated. Apple Sykes MD Source: [facility] RWHXTRANSXRTFSYS Document Id: [id number] Apple Sykes M.D. - 04/21/2013 11:00 AM CDT [id number] CLINIC ENCOUNTER SUBJECTIVE: New patient to me. Previously established at the clinic who is here today to establish care. PAST MEDICAL HISTORY: This is a 37-year-old female whose past medical history is most prominent for: 1. History of bronchopulmonary dysplasia. She follows at the [facility] [place]. She states that she had some decreased pulmonary function testing and was advised to follow up in 1 year. She has been off of her Advair due to lack of insurance. 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 2. She had an atrial septal defect which was recently repaired. Again this was done at [facility], the records are not available. She, otherwise, [...] given as discussed above. Apple Sykes M.D. Gaby cc: Source: [facility] RWMCHXTRANSXRTFSYS Document Id: [id number] documented in this encounter Plan of Treatment Not on filedocumented as of this encounter Visit Diagnoses Not on filedocumented in this encounter Additional Health Concerns Assessment Noted Time PHQ-9 Depression Total Score: 8 09/18/2012 7:41 AM HIDE CLEANER documented as of this encounter
--- OUTSIDE RECORDS SUMMARY | 2022-08-29 12:19 | XMS_ITS | Encounter Summary ---
:1975 Author Organization [facility] Address [address] [place] [address] Care Team Providers Name Role Phone Unavailable Primary Care Provider Unavailable Encounter Details Date Type Department Care Team Description 05/05/2012 Hospital Encounter [facility] Rosa Freeman P.A.-C. [address] [place], [place] [address] (Wo rk) Social History Tobacco Use Types Packs/Day Years Used Date Smoking Tobacco: Never Assessed Sex Assigned at Date Recorded Female 02/11/2018 8:36 AM CDT documented as of this encounter Progress Notes Rosa Freeman P.A.-C. - 05/05/2012 10:05 AM CDT [id number] SUBJECTIVE: Alcon Zamora is a 36 year old female who complains of Chief Complaint Patient presents with Derm Problem rash on forehead and cheeks. Onset/Timin months constant but sometimes worsens. Pain Quantity/Quality: No Pain (0) Alleviating Factors: none Aggravating Factors: none Treatment: none Associated symptoms: none. History Smoking status Never Smoker Smokeless tobacco Not on file Allergies Allergen Reactions Erythromycin GI Disturbance Current Outpatient Prescriptions Medication Sig TRAZODONE HCL PO Take by mouth. metroNIDAZOLE (METROGEL) 1 % gel Apply to affected areas once daily. CELEXA 20 MG OR TABS ONE DAILY ADVAIR DISKUS IN None Entered Past Medical History Diagnosis Date Excessive or frequent menstruation 01/31/06 Hospitalized Hemorrhage complicating a procedure Acute posthemorrhagic anemia REVIEW OF SYSTEMS: General: [...] these issues and agrees with the plan. Source: [facility] Document Id: [id number] documented in this encounter Plan of Treatment Not on filedocumented as of this encounter Visit Diagnoses Not on filedocumented in this encounter
--- OUTSIDE RECORDS SUMMARY | 2022-08-29 12:19 | XMS_ITS | Encounter Summary ---
:1975 Author Organization [facility] Address [address] [place] [address] Care Team Providers Name Role Phone Unavailable [...]
--- OUTSIDE RECORDS SUMMARY | 2022-08-29 12:19 | XMS_ITS | Encounter Summary ---
:1975 Author Organization [facility] Address [address] [place] [address] Care Team Providers Name Role Phone Unavailable Primary Care Provider Unavailable Encounter Details Date Type Department Care Team Description 02/10/2013 Hospital Encounter [facility] Winston Pham O.D. Social History Tobacco Use [...] encounter Progress Notes Winston Villatoro O.D. - 02/10/2013 11:00 AM CDT [id number] CLINIC ENCOUNTER The patient is in today [...] return immediately. Otherwise reevaluate in three days. Starr Anguiano// cc: [facility] Document Id: [id number] Electronically signed by Conversion, [facility] Engine Testing Supervisor [id number] at 02/11/2017 7:06 PM CDT Winston Villatoro O.D. - 02/10/2013 11:00 AM CDT [id number] Pain Questionnaire: Is your visit today because [...] 02/10/2013 MEDICATIONS: Current Outpatient Prescriptions Medication Sig traZODone (DESYREL) [...] no afferent defect. HPI ROS Physical Exam [facility] Document Id: [id number] documented in this encounter Plan of Treatment Not on filedocumented as of this encounter Visit Diagnoses Not on filedocumented in this encounter Additional Health Concerns Assessment Noted Time PHQ-9 Depression Total Score: 8 09/18/2012 7:41 AM PRODUCTION TECHNOLOGIST documented as of this encounter
--- OUTSIDE RECORDS SUMMARY | 2022-08-29 12:19 | XMS_ITS | Encounter Summary ---
:1975 Author Organization [facility] Address [address] [place] [address] Care Team Providers Name Role Phone Unavailable Primary Care Provider Unavailable Encounter Details Date Type Department Care Team Description 09/18/2012 Hospital Encounter HX [facility] Bennett, Naomi Ibrahim, COMMUNITY NUTRITION EDUCATOR, NEEDLE GRADER, M.S. [address] [place] [address] Social History Tobacco Use Types Packs/Day Years [...] Depression Total Score: 8 09/18/2012 7:41 AM PERSONNEL REPRESENTATIVE documented as of this encounter
--- OUTSIDE RECORDS SUMMARY | 2022-08-29 12:19 | XMS_ITS | Encounter Summary ---
:1975 Author Organization [facility] Address [address] [place] [address] Care Team Providers Name Role Phone Unavailable Primary Care Provider Unavailable Encounter Details Date Type Department Care Team Description 11/20/2012 Hospital Encounter HX [facility] Rubi White M.D. [address] [place] [address] (Wo rk) Social History Tobacco [...] as of this encounter Progress Notes Rubi Crowley M.D. - 11/20/2012 10:20 AM CST [id number] SUBJECTIVE: Alcon is a 37 year old [...] Will f/u here or with PCP in [place] or pulmonogist at [place] prn. Source[facility] Document Id: [id number] Electronically signed by Conversion, [facility] [employer] Industrial Arts Teacher [id number] at 02/11/2017 3:42 PM CDT documented in this encounter Miscellaneous Notes Miscellaneous - Rubi Crowley M.D. - 11/20/2012 10:20 AM CST [id number] 11/20/2012 Alcon Zamora TO WHOM IT MAY CONCERN: Alcon Zamora was seen on 11/20/2012. Please excuse her 11/20/2012 to 11/21/2012 due to illness. Cordially, Rubi Weeks M.D. FAMILY MEDICINE [facility] [place] Source: [facility] Document Id: [id number] Electronically signed by Conversion, [facility] [employer] Industrial Arts Teacher [id number] at 02/11/2017 3:42 PM CDT documented in this encounter Plan of Treatment Not on filedocumented as of this encounter Procedures Procedure Name Priority Date/Time Associated Diagnosis Comme nts HX INFLUENZA B AG Routine 11/20/2012 11:29 AM Res ults for this TRAFFIC SAFETY ADMINISTRATOR procedure are i n the results section. INFLUENZA A H1N1 Routine 11/20/2012 11:29 AM Resu lts for this (2008) TRAFFIC SAFETY ADMINISTRATOR procedure are i n the results section. INFLUENZA A/B Routine 11/20/2012 11:29 AM Results for this TRAFFIC SAFETY ADMINISTRATOR procedure are i n the results section. documented in this encounter Results Influenza A/B (11/20/2012 11:29 AM TRAFFIC SAFETY ADMINISTRATOR) [facility] Method Time Signature Influenza A/B Nasopharyngeal [facility] LAB Specimen (Source) Anatomical Collection Method Collection Time Re ceived Time Location / / Volume Laterality 11/20/2012 11:29 AM TRAFFIC SAFETY ADMINISTRATOR Historical Provider LAB MICROBIOLOGY - GENERAL O RDERABLES Performing Organization Address [facility] Code Phon e Number [facility] HX INFLUENZA B AG (11/20/2012 11:29 AM TRAFFIC SAFETY ADMINISTRATOR) Specimen (Source) Anatomical Collection Method Collection Time Re ceived Time Location / / Volume Laterality 11/20/2012 11:29 AM TRAFFIC SAFETY ADMINISTRATOR Narrative [facility] - 11/16/19 14 9:16 PM TRAFFIC SAFETY ADMINISTRATOR Negative Negative. A negative test result does no t exclude infection, a follow-up respiratory culture is recommended. Historical Provider LAB HISTORICAL ORDERS Performing Organization Address [facility] Code Phon e Number [facility] Influenza A H1N1 (2008) (11/20/2012 11:29 AM TRAFFIC SAFETY ADMINISTRATOR) Patholo gist Method Time Signature HXInfluenza A Ag Negative [facility] Specimen (Source) Anatomical Collection Method Collection Time Re ceived Time Location / / Volume Laterality 11/20/2012 11:29 AM TRAFFIC SAFETY ADMINISTRATOR Historical Provider LAB MICROBIOLOGY - GENERAL O RDERABLES Performing Organization Address City/[facility]/ZIP Code Phon e Number [facility] documented in this encounter Visit Diagnoses Not on filedocumented in this encounter Additional Health Concerns Assessment Noted Time PHQ-9 Depression Total Score: 8 09/18/2012 7:41 AM TRAFFIC SAFETY ADMINISTRATOR documented as of this encounter
--- OUTSIDE RECORDS SUMMARY | 2022-08-29 12:19 | XMS_ITS | Encounter Summary ---
:1975 Author Organization [facility] Address [address] [place] [address] Care Team Providers Name Role Phone Unavailable Primary Care Provider Unavailable Encounter Details Date Type Department Care Team Description 08/11/2012 Hospital Encounter HX NO MAPPING David Estes M.D. [address] [place], [place] [phone] (Wo rk) Social History [...]
--- OUTSIDE RECORDS SUMMARY | 2022-08-29 12:19 | XMS_ITS | Encounter Summary ---
:1975 Author Organization [facility] Address [address] [place] [address] Care Team Providers Name Role Phone Unavailable Primary Care Provider Unavailable Encounter Details Date Type Department Care Team Description 05/06/2012 Hospital Encounter HX [facility] Liz Sauceda ra, R.N. Social History Tobacco Use Types Packs/Day Years Used Date Smoking Tobacco: Never Assessed Sex Assigned at Date Recorded Female 02/11/2018 8:36 AM CDT documented as of this encounter Miscellaneous Notes Telephone Encounter - Chelsy Sauceda RVicentaNVicenta - 05/06/2012 12:00 AM CDT [id number] Per pharmacy, 1% Metrogel is not available and is requesting order for Metrogel 0.75% BID instead. [facility] Document Id: [id number] Electronically signed by Conversion, [facility] Brake Drum Molder [id number] at 02/16/2017 2:56 PM CDT documented in this encounter Plan of Treatment Not on filedocumented as of this encounter Visit Diagnoses Not on filedocumented in this encounter
--- OUTSIDE RECORDS SUMMARY | 2022-08-29 12:19 | XMS_ITS | Encounter Summary ---
:1975 Author Organization [facility] Address [address] [place] [address] Care Team Providers Name Role Phone Unavailable Primary Care Provider Unavailable Encounter Details Date Type Department Care Team Description 09/05/2012 Hospital Encounter HX [facility] INTERNMED Provider, David modi Social History [...] this encounter Progress Notes Mel Tomas - 09/05/2012 11:00 AM CST [id number] Alcon Zamora is a 36 year old female presenting for Chief Complaint Patient presents with Cough cough, throat iritation x 4 days. [...] does help. Current Outpatient Prescriptions Medication Sig Beclomethasone Dipropionate (QVAR IN) Inhale into the lungs. metroNIDAZOLE (METROGEL) 0.75 % gel Metrogel 1% not available TRAZODONE HCL PO Take by mouth. CELEXA 20 MG OR TABS ONE DAILY Past Medical History Diagnosis Date Excessive or frequent menstruation 01/31/06 Hospitalized Hemorrhage complicating a procedure Acute posthemorrhagic anemia Cervicalgia Pain in joint, pelvic region and thigh Allergies Allergen Reactions Erythromycin GI Disturbance Objective: Blood pressure 118/88, [...] improvement in symptoms, sooner if worsening symptoms Source: [facility] Document Id: [id number] documented in this encounter Plan of Treatment Not on filedocumented as of this encounter Visit Diagnoses Not on filedocumented in this encounter
--- OUTSIDE RECORDS SUMMARY | 2022-08-29 12:19 | XMS_ITS | Encounter Summary ---
:1975 Author Organization [facility] Address [address] [place] [address] Care Team Providers Name Role Phone Unavailable Primary Care Provider Unavailable Encounter Details Date Type Department Care Team Description 02/20/2011 Hospital Encounter HX [facility] Provider, Historic al Social History Tobacco Use Types Packs/Day Years Used Date Smoking Tobacco: Never Assessed Sex Assigned at Date Recorded Female 02/11/2018 8:36 AM CDT documented as of this encounter Plan of Treatment Not on filedocumented as of this encounter Visit Diagnoses Not on filedocumented in this encounter
--- OUTSIDE RECORDS SUMMARY | 2022-08-29 12:19 | XMS_ITS | Encounter Summary ---
:1975 Author Organization [facility] Address [address] [place] [address] Care Team Providers Name Role Phone Unavailable Primary Care Provider Unavailable Encounter Details Date Type Department Care Team Description 08/25/2012 Hospital Encounter HX NO MAPPING Social History [...]
--- OUTSIDE RECORDS SUMMARY | 2022-08-29 12:19 | XMS_ITS | Encounter Summary ---
:1975 Author Organization [facility] Address [address] [place] [address] Care Team Providers Name Role Phone Unavailable Primary Care Provider Unavailable Encounter Details Date Type Department Care Team Description 09/16/2011 Hospital Encounter HX NO MAPPING Provider, Historical Social History Tobacco Use Types Packs/Day Years Used Date Smoking Tobacco: Never Assessed Sex Assigned at Date Recorded Female 02/11/2018 8:36 AM CDT documented as of this encounter Miscellaneous Notes Miscellaneous - Conversion, Historical Provider Ser - 09/16/2011 12:00 AM DISBURSEMENT CLERK [id number] IOD processed records. REQ Source: [facility] Document Id: [id number] Miscellaneous - Conversion, Historical Provider Ser - 09/16/2011 12:00 AM DISBURSEMENT CLERK [id number] IOD processed records. REQ Source: [facility] Document Id: [id number] documented in this encounter Plan of Treatment Not on filedocumented as of this encounter Visit Diagnoses Not on filedocumented in this encounter
--- OUTSIDE RECORDS SUMMARY | 2022-08-29 12:19 | XMS_ITS | Encounter Summary ---
:[address] [facility] Address [address] [place] [address] Care Team Providers Name Role Phone Unavailable Primary Care Provider Unavailable Encounter Details Date Type Department Care Team Description 04/22/2013 Hospital Encounter HX [facility] LAB Provider, Historic al Social History Tobacco Use [...] of this encounter Miscellaneous Notes Miscellaneous - Apple Sykes M.D. - 04/22/2013 12:45 PM CDT [id number] Quick Note: TSH is high normal. No medication needed but would recheck this lab in 3 months as it has been slowly increasing. Apple Sykes MD Source: [facility] Document Id: [id number] Electronically signed by Conversion, [facility] Service Restorer Emergency [id number] at 02/11/2017 1:17 PM CDT Miscellaneous - Apple Sykes M.D. - 04/22/2013 12:45 PM CDT [id number] Quick Note: Ok to recheck lab in 1 month. This level of TSH would not contribute to weight gain. 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
--- OUTSIDE RECORDS SUMMARY | 2022-08-29 12:19 | XMS_ITS | Encounter Summary ---
:1975 Author Organization [facility] Address [address] [place] [address] Care Team Providers Name Role Phone Unavailable Primary Care Provider Unavailable Encounter Details Date Type Department Care Team Description 04/17/2013 Hospital Encounter HX NO MAPPING Koko Madrigal M.D. [address] [place], [place] [address] Social History Tobacco Use [...] Depression Total Score: 8 09/18/2012 7:41 AM NAMED ACCOUNT EXECUTIVE documented as of this encounter
--- OUTSIDE RECORDS SUMMARY | 2022-08-29 12:19 | XMS_ITS | Encounter Summary ---
:1975 Author Organization [facility] Address [address] [place] [address] Care Team Providers Name Role Phone Unavailable Primary Care Provider Unavailable Encounter Details Date Type Department Care Team Description 04/21/2013 Hospital Encounter HX NO MAPPING Javier Shore, P.T. [address] [place], [place] [phone] (Wo rk) Social History [...] encounter Progress Notes Layne Shore, P.T. - 04/21/2013 1:30 PM CDT [id number] PHYSICAL THERAPY DAILY VISIT NOTES Visits Used [...] Total Time-Based Code Only Minutes: 8 minutes. 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
--- OUTSIDE RECORDS SUMMARY | 2022-08-29 12:19 | XMS_ITS | Encounter Summary ---
:1975 Author Organization [facility] Address [address] [place] [address] Care Team Providers Name Role Phone Unavailable Primary Care Provider Unavailable Encounter Details Date Type Department Care Team Description 04/10/2013 Hospital Encounter HX [facility] Yung Madrigal M.D. [address] [place], [place] [address] Social History Tobacco Use [...] encounter Progress Notes Yung Madrigal M.D. - 04/10/2013 1:00 PM CDT [id number] CLINIC ENCOUNTER Alcon continues to have chronic [...] where she is spending more time at [employer] and computer than before, but can't think [...] happen at the lateral side. 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 She's been seen by Cardiology at [place]. They felt that she did not have any cardiac abnormalities. Yung Madrigal M.D. ERIKA/vincenzo cc: Source: [facility] RWHXTRANSXRTFSYS Document Id: [id number] Electronically signed by Conversion, [facility] Recovery Unit Operator [id number] at 02/11/2017 12:20 PM CDT documented in this encounter Plan of Treatment Not on filedocumented as of this encounter Visit Diagnoses Not on filedocumented in this encounter Additional Health Concerns Assessment Noted Time PHQ-9 Depression Total Score: 8 09/18/2012 7:41 AM HADOOP APPLICATION DEVELOPER documented as of this encounter
--- OUTSIDE RECORDS SUMMARY | 2022-08-29 12:19 | XMS_ITS | Encounter Summary ---
:1975 Author Organization [facility] Address [address] [place] [address] Care Team Providers Name Role Phone Unavailable Primary Care Provider Unavailable Encounter Details Date Type Department Care Team Description 09/18/2012 Hospital Encounter HX [facility] Cristina Miguel, BARRERA, C.N.P., D.N.P., M.S. [address] [place] [phone] (Wo rk) Social History Tobacco Use Types [...] Depression Total Score: 8 09/18/2012 7:41 AM DISPATCH OFFICER documented as of this encounter
--- OUTSIDE RECORDS SUMMARY | 2022-08-29 12:19 | XMS_ITS | Encounter Summary ---
:1975 Author Organization [facility] Address [address] [place] [address] Care Team Providers Name Role Phone Unavailable Primary Care Provider Unavailable Encounter Details Date Type Department Care Team Description 04/21/2013 Hospital Encounter HX [facility] Provider, David modi Social [...] Provider Ser - 04/21/2013 12:00 AM CDT [id number] Patient is calling requesting to have a TSH. Patient states that Dr. Sykes offered to order at appointment but patient declined patient has changed her mind she would like to have this test done. Patient will come in tomorrow for lab draw. Source: [facility] Document Id: [id number] documented in this encounter Plan of Treatment Not on filedocumented as of this encounter Visit Diagnoses Not on filedocumented in this encounter Additional Health Concerns Assessment Noted Time PHQ-9 Depression Total Score: 8 09/18/2012 7:41 AM INSIGHTS ANALYST documented as of this encounter
--- OUTSIDE RECORDS SUMMARY | 2022-08-29 12:19 | XMS_ITS | Encounter Summary ---
:1975 Author Organization [facility] Address [address] [place] [address] Care Team Providers Name Role Phone Unavailable Primary Care Provider Unavailable Encounter Details Date Type Department Care Team Description 06/27/2012 Hospital Encounter HX [facility]ILYPR[facility] Rosa Freeman P.A.-C. [address] [place], [place] [address] (Wo rk) Social History [...] of this encounter Miscellaneous Notes Miscellaneous - Rosa Freeman P.A.-C. - 06/27/2012 12:00 AM CDT [id number] Alcon Zamora [address] [facility] [phone] June 27, 2012 Dear Alcon Zamora, APPOINTMENT REMINDER: Our record indicates that it is time for you to be seen for an office visit with Red Santiago You may call our office at [phone] to schedule an appointment for a Follow- Up Visit. Please disregard this notice if you have already made an appointment. Sincerely, [facility] [place] Source: [facility] Document Id: [id number] documented in this encounter Plan of Treatment Not on filedocumented as of this encounter Visit Diagnoses Not on filedocumented in this encounter
--- OUTSIDE RECORDS SUMMARY | 2022-08-29 12:19 | XMS_ITS | Encounter Summary ---
:1975 Author Organization [facility] Address [address] [place] [address] Care Team Providers Name Role Phone Unavailable Primary Care Provider Unavailable Encounter Details Date Type Department Care Team Description 09/19/2012 Hospital Encounter HX [facility] Eloisa Gonzalez A, R.N. [address] [place] [address] Social History Tobacco Use Types Packs/Day Years [...] Depression Total Score: 8 09/18/2012 7:41 AM DISK RECOATER documented as of this encounter
--- OUTSIDE RECORDS SUMMARY | 2022-08-29 12:19 | XMS_ITS | Encounter Summary ---
:1975 Author Organization [facility] Address [address] [place] [address] Care Team Providers Name Role Phone Unavailable Primary Care Provider Unavailable Encounter Details Date Type Department Care Team Description 01/17/2012 Hospital Encounter HX NO MAPPING Javier Shore P.T. [address] [place], [place] [phone] (Wo rk) Social History Tobacco Use Types Packs/Day Years Used Date Smoking Tobacco: Never Assessed Sex Assigned at Date Recorded Female 02/11/2018 8:36 AM CDT documented as of this encounter Progress Notes Layne Shore P.T. 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 Job Demands: [...] to treatment have been reviewed and the patient/child care cook has been instructed to contact this office if they have any questions or concerns. This plan of care has been discussed with the patient/child care cook and the patient/child care cook is in agreement. Frequency / Duration: Patient [...] Total Time-Based Code Only Minutes: 23 minutes. LANG INTERPRETER PRESENT: NA MULTIDISCIPLINARY PATIENT / FAMILY EDUCATION [...] Demonstrated ability, Verbalized recall / understanding Source: [facility] Document Id: [id number] documented in this encounter Plan of Treatment Not on filedocumented as of this encounter Visit Diagnoses Not on filedocumented in this encounter
--- OUTSIDE RECORDS SUMMARY | 2022-08-29 12:19 | XMS_ITS | Encounter Summary ---
:1975 Author Organization [facility] Address [address] [place] [address] Care Team Providers Name Role Phone Unavailable Primary Care Provider Unavailable Encounter Details Date Type Department Care Team Description 01/17/2012 - Hospital Encounter HX NO MAPPING Provider, Historical 01/30/2012 Social History Tobacco Use Types Packs/Day Years Used Date Smoking Tobacco: Never Assessed Sex Assigned at Date Recorded Female 02/11/2018 8:36 AM CDT documented as of this encounter Plan of Treatment Not on filedocumented as of this encounter Visit Diagnoses Not on filedocumented in this encounter
--- OUTSIDE RECORDS SUMMARY | 2022-08-29 12:19 | XMS_ITS | Encounter Summary ---
:1975 Author Organization [facility] Address [address] [place] [address] Care Team Providers Name Role Phone Unavailable Primary Care Provider Unavailable Encounter Details Date Type Department Care Team Description 08/26/2012 Hospital Encounter HX [facility] Yung Diallo M.D. [address] [place], [place] [address] Social History Tobacco Use [...] Encounter - Conversion, Historical Provider Ser - 08/26/2012 12:00 AM CST [id number] Phone: Work [phone] Patient called - she seen the dr last week - she needs to give you an update on her going to the [facility] in [place]. Please call to discuss. Thank you. Delmis Source: [facility] Document Id: [id number] Telephone Encounter - Conversion, Historical Provider Ser - 08/26/2012 12:00 AM CST [id number] Forwarded to Source: [facility] Document Id: [id number] documented in this encounter Plan of Treatment Not on filedocumented as of this encounter Visit Diagnoses Not on filedocumented in this encounter
--- OUTSIDE RECORDS SUMMARY | 2022-08-29 12:19 | XMS_ITS | Encounter Summary ---
:[address] [facility] Address [address] [place] [address] Care Team Providers Name Role Phone Unavailable Primary Care Provider Unavailable Encounter Details Date Type Department Care Team Description 01/09/2012 Hospital Encounter HX NO MAPPING Provider, Historical Social History Tobacco Use Types Packs/Day Years Used Date Smoking Tobacco: Never Assessed Sex Assigned at Date Recorded Female 02/11/2018 8:36 AM CDT documented as of this encounter Plan of Treatment Not on filedocumented as of this encounter Visit Diagnoses Not on filedocumented in this encounter
--- OUTSIDE RECORDS SUMMARY | 2022-08-29 12:20 | XMS_ITS | Encounter Summary ---
:1975 Author Organization [facility] Address [address] [place] [address] Care Team Providers Name Role Phone Unavailable Primary Care Provider Unavailable Encounter Details Date Type Department Care Team Description 04/14/2008 Hospital Encounter HX NO MAPPING Jef Siegel P.T. [address] [place], [place] [phone] Social History Tobacco Use Types Packs/Day Years Used Date Smoking Tobacco: Never Assessed Sex Assigned at Date Recorded Female 02/11/2018 8:36 AM CDT documented as of this encounter Progress Notes Maryse Siegel P.T. - 04/14/2008 12:00 AM CDT [id number] Contacted pt regarding continuing therapy as she canceled her last two appointments due to illness. Pt reported since the last visit she has had only 1 episode of neck pain, but was able to resolve it with the HEP given to her in PT. At this time pt would like to continue independently. Source: [facility] RWHXTRANSXRTFSYS Document Id: [id number] documented in this encounter Plan of Treatment Not on filedocumented as of this encounter Visit Diagnoses Not on filedocumented in this encounter
--- OUTSIDE RECORDS SUMMARY | 2022-08-29 12:20 | XMS_ITS | Encounter Summary ---
:1975 Author Organization [facility] Address [address] [place] [address] Care Team Providers Name Role Phone Unavailable Primary Care Provider Unavailable Encounter Details Date Type Department Care Team Description 04/21/[address] [facility] INPT/OBSRV Perla Mcfarlane APRN, C.N.P., R.N. [address] [place] [address] (Wo rk) Social History Tobacco Use Types Packs/Day Years Used Date Smoking Tobacco: Never Assessed Sex Assigned at Date Recorded Female 02/11/2018 8:36 AM CDT documented as of this encounter Plan of Treatment Not on filedocumented as of this encounter Visit Diagnoses Not on filedocumented in this encounter
--- OUTSIDE RECORDS SUMMARY | 2022-08-29 12:20 | XMS_ITS | Encounter Summary ---
:1975 Author Organization [facility] Address [address] [place] [address] Care Team Providers Name Role Phone Unavailable Primary Care Provider Unavailable Encounter Details Date Type Department Care Team Description 04/21/2010 Hospital Encounter HX [facility] INPT/OBSRV Perla Mcfarlane APRN, C.N.P., R.N. [address] [place] [address] (Wo rk) Social History Tobacco Use Types Packs/Day Years Used Date Smoking Tobacco: Never Assessed Sex Assigned at Date Recorded Female 02/11/2018 8:36 AM CDT documented as of this encounter Plan of Treatment Not on filedocumented as of this encounter Visit Diagnoses Not on filedocumented in this encounter
--- OUTSIDE RECORDS SUMMARY | 2022-08-29 12:20 | XMS_ITS | Encounter Summary ---
:[address] [facility] Address [address] [place] [address] Care Team Providers Name Role Phone Unavailable Primary Care Provider Unavailable Encounter Details Date Type Department Care Team Description 03/16/2008 - Hospital Encounter HX NO MAPPING Timmy Perez M.D. 04/15/[address] [place] [phone] (Wo rk) Social History Tobacco Use Types Packs/Day Years Used Date Smoking Tobacco: Never Assessed Sex Assigned at Date Recorded Female 02/11/2018 8:36 AM CDT documented as of this encounter Plan of Treatment Not on filedocumented as of this encounter Visit Diagnoses Not on filedocumented in this encounter
--- OUTSIDE RECORDS SUMMARY | 2022-08-29 12:20 | XMS_ITS | Encounter Summary ---
:1975 Author Organization [facility] Address [address] [place] [address] Care Team Providers Name Role Phone Unavailable Primary Care Provider Unavailable Encounter Details Date Type Department Care Team Description 04/21/2010 Hospital Encounter HX NO MAPPING Social History Tobacco Use Types Packs/Day Years Used Date Smoking Tobacco: Never Assessed Sex Assigned at Date Recorded Female 02/11/2018 8:36 AM CDT documented as of this encounter Plan of Treatment Not on filedocumented as of this encounter Visit Diagnoses Not on filedocumented in this encounter
--- OUTSIDE RECORDS SUMMARY | 2022-08-29 12:20 | XMS_ITS | Encounter Summary ---
:1975 Author Organization [facility] Address [address] [place] [address] Care Team Providers Name Role Phone Unavailable Primary Care Provider Unavailable Encounter Details Date Type Department Care Team Description 04/03/2008 Hospital Encounter HX [facility] Provider, Historical INPT/OBSRV Social History Tobacco Use Types Packs/Day Years Used Date Smoking Tobacco: Never Assessed Sex Assigned at Date Recorded Female 02/11/2018 8:36 AM CDT documented as of this encounter Plan of Treatment Not on filedocumented as of this encounter Visit Diagnoses Not on filedocumented in this encounter
--- OUTSIDE RECORDS SUMMARY | 2022-08-29 12:20 | XMS_ITS | Encounter Summary ---
:1975 Author Organization [facility] Address [address] [place] [address] Care Team Providers Name Role Phone Unavailable Primary Care Provider Unavailable Encounter Details Date Type Department Care Team Description 04/26/2009 Hospital Encounter HX [facility] Marcus Bassett, INPT/OBSRV M.D. [address] [place] [phone] (Wo rk) Social History Tobacco Use Types Packs/Day Years Used Date Smoking Tobacco: Never Assessed Sex Assigned at Date Recorded Female 02/11/2018 8:36 AM CDT documented as of this encounter Plan of Treatment Not on filedocumented as of this encounter Visit Diagnoses Not on filedocumented in this encounter
--- OUTSIDE RECORDS SUMMARY | 2022-08-29 12:20 | XMS_ITS | Encounter Summary ---
:1975 Author Organization [facility] Address [address] [place] [address] Care Team Providers Name Role Phone Unavailable Primary Care Provider Unavailable Encounter Details Date Type Department Care Team Description 04/14/2008 Hospital Encounter HX NO MAPPING Jef Siegel P.T. [address] [place], [place] [phone] Social History Tobacco Use Types Packs/Day Years Used Date Smoking Tobacco: Never Assessed Sex Assigned at Date Recorded Female 02/11/2018 8:36 AM CDT documented as of this encounter Progress Notes Maryse Siegel P.T. - 04/14/2008 12:00 AM CDT [id number] PHYSICAL THERAPY SUMMATION OF EPISODE OF CARE [...] regarding HEP, and reported compliance Therapist: Maryse Siegel DPT Date: 04/14/2008 Source: [facility] RWHXTRANSXRTFSYS Document Id: [id number] Electronically signed by Conversion, [facility] [employer] Supervisor [id number] at 02/18/2017 3:54 AM CDT documented in this encounter Plan of Treatment Not on filedocumented as of this encounter Visit Diagnoses Not on filedocumented in this encounter
--- OUTSIDE RECORDS SUMMARY | 2022-08-29 12:20 | XMS_ITS | Encounter Summary ---
:1975 Author Organization [facility] Address [address] [place] [address] Care Team Providers Name Role Phone Unavailable Primary Care Provider Unavailable Encounter Details Date Type Department Care Team Description 03/09/2009 Hospital Encounter HX [facility] Adela Castelan M.D. [address] [place] [phone] (Wo rk) Social History Tobacco Use Types Packs/Day Years Used Date Smoking Tobacco: Never Assessed Sex Assigned at Date Recorded Female 02/11/2018 8:36 AM CDT documented as of this encounter Miscellaneous Notes Miscellaneous - Conversion, Historical Provider Ser - 03/09/2009 12:00 AM CDT [id number] Alcon Zamora [address] [place] [address] March 09, 2009 Dear Alcon Zamora, APPOINTMENT REMINDER: Our record indicates that it is time for you to be seen for an office visit with Timmy Perez M.D. You may call our office at [phone] to schedule an appointment for an Annual Physical. Please check with your insurance carrier for authorization prior to this appointment. Please disregard this notice if you have already received authorization from your insurance company and have made an appointment. Sincerely, [facility] Source[facility] Document Id: [id number] documented in this encounter Plan of Treatment Not on filedocumented as of this encounter Visit Diagnoses Not on filedocumented in this encounter
--- OUTSIDE RECORDS SUMMARY | 2022-08-29 12:20 | XMS_ITS | Encounter Summary ---
:1975 Author Organization [facility] Address [address] [place] [address] Care Team Providers Name Role Phone Unavailable Primary Care Provider Unavailable Encounter Details Date Type Department Care Team Description 04/01/2008 Hospital Encounter HX NO MAPPING Jef Siegel P.T. [address] [place], [place] [phone] Social History Tobacco Use Types Packs/Day Years Used Date Smoking Tobacco: Never Assessed Sex Assigned at Date Recorded Female 02/11/2018 8:36 AM CDT documented as of this encounter Progress Notes Maryse Siegel P.T. - 04/01/2008 2:30 PM CDT [id number] PHYSICAL THERAPY DAILY VISIT NOTES SUBJECTIVE: Since [...] Total Time-Based Code Only Minutes: 21 minutes. Heel Lift Gouger Present: SONALI Therapist: Maryse Siegel DPT Source: [facility] RWHXTRANSXRTFSYS Document Id: [id number] Electronically signed by Jennifer [facility] [id number] at 02/18/2017 3:54 AM CDT documented in this encounter Plan of Treatment Not on filedocumented as of this encounter Visit Diagnoses Not on filedocumented in this encounter
--- OUTSIDE RECORDS SUMMARY | 2022-08-29 12:21 | XMS_ITS | Encounter Summary ---
:1975 Author Organization [facility] Address [address] [place] [address] Care Team Providers Name Role Phone Unavailable Primary Care Provider Unavailable Encounter Details Date Type Department Care Team Description 02/27/2008 Hospital Encounter HX [facility] Chinedu Schmitz M.D. [phone] [place], [place] [address] (Wo rk) Social History Tobacco Use Types Packs/Day Years Used Date Smoking Tobacco: Never Assessed Sex Assigned at Date Recorded Female 02/11/2018 8:36 AM CDT documented as of this encounter Progress Notes Chinedu Schmitz M.D. - 02/27/2008 2:15 PM CDT [id number] SUBJECTIVE: Alcon A Noah 32 year old [...] ASSESSMENT: Encounter Diagnoses Code Name Primary? Qualifier 461.9 Acute Sinusitis, Unspecified Yes Plan: CELEXA 20 MG OR TABS, CBC WITH PLATELETS, DIFF, MONO HETEROPHILE, SEPTRA DS 800-160 MG OR TABS 780.79B Fatigue Plan: CELEXA 20 MG OR TABS, CBC WITH PLATELETS, DIFF, MONO HETEROPHILE, SEPTRA DS 800-160 MG OR TABS Call or return to clinic prn if these symptoms worsen or fail to improve as anticipated. [facility] Document Id: [id number] documented in this encounter Plan of Treatment Not on filedocumented as of this encounter Visit Diagnoses Not on filedocumented in this encounter
--- OUTSIDE RECORDS SUMMARY | 2022-08-29 12:21 | XMS_ITS | Encounter Summary ---
:1975 Author Organization [facility] Address [address] [place] [address] Care Team Providers Name Role Phone Unavailable Primary Care Provider Unavailable Encounter Details Date Type Department Care Team Description 11/19/2007 Hospital Encounter HX [facility] Provider, David modi Social History Tobacco Use Types Packs/Day Years Used Date Smoking Tobacco: Never Assessed Sex Assigned at Date Recorded Female 02/11/2018 8:36 AM CDT documented as of this encounter Plan of Treatment Not on filedocumented as of this encounter Visit Diagnoses Not on filedocumented in this encounter
--- OUTSIDE RECORDS SUMMARY | 2022-08-29 12:21 | XMS_ITS | Encounter Summary ---
:1975 Author Organization [facility] Address [address] [place] [address] Care Team Providers Name Role Phone Unavailable Primary Care Provider Unavailable Encounter Details Date Type Department Care Team Description 02/19/2006 Hospital Encounter HX NO MAPPING Social History Tobacco Use Types Packs/Day Years Used Date Smoking Tobacco: Never Assessed Sex Assigned at Date Recorded Female 02/11/2018 8:36 AM CDT documented as of this encounter Plan of Treatment Not on filedocumented as of this encounter Visit Diagnoses Not on filedocumented in this encounter
--- OUTSIDE RECORDS SUMMARY | 2022-08-29 12:21 | XMS_ITS | Encounter Summary ---
:1975 Author Organization [facility] [place] [facility] Address [address] [place] [address] Care Team Providers Name Role Phone Unavailable Primary Care Provider Unavailable Encounter Details Date Type Department Care Team Description 02/03/2006 - 02/04/2006 Hospital Encounter HX NO MAPPING Social History Tobacco Use Types Packs/Day Years Used Date Smoking Tobacco: Never Assessed Sex Assigned at Date Recorded Female 02/11/2018 8:36 AM CDT documented as of this encounter Plan of Treatment Not on filedocumented as of this encounter Visit Diagnoses Not on filedocumented in this encounter
--- OUTSIDE RECORDS SUMMARY | 2022-08-29 12:21 | XMS_ITS | Encounter Summary ---
:1975 Author Organization [facility] Address [address] [place] [address] Care Team Providers Name Role Phone Unavailable Primary Care Provider Unavailable Encounter Details Date Type Department Care Team Description 10/29/2007 Hospital Encounter HX [facility] Provider, David modi Social History Tobacco Use Types Packs/Day Years Used Date Smoking Tobacco: Never Assessed Sex Assigned at Date Recorded Female 02/11/2018 8:36 AM CDT documented as of this encounter Plan of Treatment Not on filedocumented as of this encounter Visit Diagnoses Not on filedocumented in this encounter
--- OUTSIDE RECORDS SUMMARY | 2022-08-29 12:21 | XMS_ITS | Encounter Summary ---
:1975 Author Organization [facility] Address [address] [place] [address] Care Team Providers Name Role Phone Unavailable Primary Care Provider Unavailable Encounter Details Date Type Department Care Team Description 10/15/2007 Hospital Encounter HX [facility] Provider, David modi Social History Tobacco Use Types Packs/Day Years Used Date Smoking Tobacco: Never Assessed Sex Assigned at Date Recorded Female 02/11/2018 8:36 AM CDT documented as of this encounter Plan of Treatment Not on filedocumented as of this encounter Visit Diagnoses Not on filedocumented in this encounter
--- OUTSIDE RECORDS SUMMARY | 2022-08-29 12:21 | XMS_ITS | Encounter Summary ---
:1975 Author Organization [facility] Address [address] [place] [address] Care Team Providers Name Role Phone Unavailable Primary Care Provider Unavailable Encounter Details Date Type Department Care Team Description 10/22/2007 Hospital Encounter HX [facility] Provider, David modi Social History Tobacco Use Types Packs/Day Years Used Date Smoking Tobacco: Never Assessed Sex Assigned at Date Recorded Female 02/11/2018 8:36 AM CDT documented as of this encounter Plan of Treatment Not on filedocumented as of this encounter Visit Diagnoses Not on filedocumented in this encounter
--- OUTSIDE RECORDS SUMMARY | 2022-08-29 12:21 | XMS_ITS | Encounter Summary ---
:1975 Author Organization [facility] Address [address] [place] [address] Care Team Providers Name Role Phone Unavailable Primary Care Provider Unavailable Encounter Details Date Type Department Care Team Description 03/30/2008 Hospital Encounter HX NO MAPPING Jef Siegel P.T. [address] [place], [place] [phone] Social History Tobacco Use Types Packs/Day Years Used Date Smoking Tobacco: Never Assessed Sex Assigned at Date Recorded Female 02/11/2018 8:36 AM CDT documented as of this encounter Progress Notes Maryse Siegel P.T. - 03/30/2008 2:00 PM CDT [id number] PHYSICAL THERAPY DAILY VISIT NOTES SUBJECTIVE: Since [...] Total Time-Based Code Only Minutes: 21 minutes. Dairy Nutritionist Present: SONALI Therapist: Maryse Siegel DPT Source: [facility] RWHXTRANSXRTFSYS Document Id: [id number] documented in this encounter Plan of Treatment Not on filedocumented as of this encounter Visit Diagnoses Not on filedocumented in this encounter
--- OUTSIDE RECORDS SUMMARY | 2022-08-29 12:21 | XMS_ITS | Encounter Summary ---
:1975 Author Organization [facility] Address [address] [place] [address] Care Team Providers Name Role Phone Unavailable Primary Care Provider Unavailable Encounter Details Date Type Department Care Team Description 11/11/2007 Hospital Encounter HX [facility] Provider, David modi Social History Tobacco Use Types Packs/Day Years Used Date Smoking Tobacco: Never Assessed Sex Assigned at Date Recorded Female 02/11/2018 8:36 AM CDT documented as of this encounter Miscellaneous Notes Miscellaneous - Conversion, Historical Provider Ser - 11/11/2007 12:00 AM 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 Thank youfor notifying our office. Your next scheduled appointment is: Monday, November 19, 2007 at 8:00 AM If you are unable to keep this appointment, please call the [facility] Health Department at your earliest convenience at or toll-free at to or cancel or reschedule. We look forward to hearing from you. Thank you, [facility] Source: [facility] Document Id: [id number] documented in this encounter Plan of Treatment Not on filedocumented as of this encounter Visit Diagnoses Not on filedocumented in this encounter
--- OUTSIDE RECORDS SUMMARY | 2022-08-29 12:21 | XMS_ITS | Encounter Summary ---
:1975 Author Organization [facility] [place] [facility] Address [address] [place] [address] Care Team Providers Name Role Phone Unavailable Primary Care Provider Unavailable Encounter Details Date Type Department Care Team Description 06/30/2007 Hospital Encounter HX NO MAPPING Social History Tobacco Use Types Packs/Day Years Used Date Smoking Tobacco: Never Assessed Sex Assigned at Date Recorded Female 02/11/2018 8:36 AM CDT documented as of this encounter Plan of Treatment Not on filedocumented as of this encounter Visit Diagnoses Not on filedocumented in this encounter
--- OUTSIDE RECORDS SUMMARY | 2022-08-29 12:21 | XMS_ITS | Encounter Summary ---
:1975 Author Organization [facility] Address [address] [place] [address] Care Team Providers Name Role Phone Unavailable Primary Care Provider Unavailable Encounter Details Date Type Department Care Team Description 11/05/2007 Hospital Encounter HX [facility] Provider, David modi Social History Tobacco Use Types Packs/Day Years Used Date Smoking Tobacco: Never Assessed Sex Assigned at Date Recorded Female 02/11/2018 8:36 AM CDT documented as of this encounter Plan of Treatment Not on filedocumented as of this encounter Visit Diagnoses Not on filedocumented in this encounter
--- OUTSIDE RECORDS SUMMARY | 2022-08-29 12:21 | XMS_ITS | Encounter Summary ---
:1975 Author Organization [facility] Address [address] [place] [address] Care Team Providers Name Role Phone Unavailable Primary Care Provider Unavailable Encounter Details Date Type Department Care Team Description 02/11/2008 Hospital Encounter HX [facility] Provider, David modi Social History Tobacco Use Types Packs/Day Years Used Date Smoking Tobacco: Never Assessed Sex Assigned at Date Recorded Female 02/11/2018 8:36 AM CDT documented as of this encounter Miscellaneous Notes Miscellaneous - Jennifer, Denice Provider Ser - 02/11/2008 12:00 AM CDT [id number] LETTER Alcon Zamora [address] [place] [address] February 11, 2008 Dear Alcon: In reviewing my records, I realized that I have not seen you for some time. I am writing, therefore,to see if you are interested in continuing therapy and want to schedule a new appointment. If you would like an appointment, please call our law office receptionist at [phone] or . Ifwe do not hear from you within two weeks, we will assume that your are not interested in scheduling further appointments and will consider your case closed. However, you are always welcome to return inthe future if you have concerns that you would like to discuss. I hope you are well. Sincerely, LANE Chan, [facility] Psychotherapist [email or web address] [facility] Document Id: [id number] documented in this encounter Plan of Treatment Not on filedocumented as of this encounter Visit Diagnoses Not on filedocumented in this encounter
--- OUTSIDE RECORDS SUMMARY | 2022-08-29 12:21 | XMS_ITS | Encounter Summary ---
:1975 Author Organization [facility] Address [address] [place] [address] Care Team Providers Name Role Phone Unavailable Primary Care Provider Unavailable Encounter Details Date Type Department Care Team Description 03/16/2008 Hospital Encounter HX NO MAPPING Jef Siegel P.T. [address] [place], [place] [phone] Social History Tobacco Use Types Packs/Day Years Used Date Smoking Tobacco: Never Assessed Sex Assigned at Date Recorded Female 02/11/2018 8:36 AM CDT documented as of this encounter Progress Notes Christina Siegel P.T. - 03/16/2008 8:30 AM CDT [id number] Addended by: CHRISTINA SIEGEL on: 03/17/2008 12:09:03 PM Modules accepted: Orders Source: [facility] RWMCHXTRANSXSYS Document Id: [id number] Electronically signed by Jennifer [facility] Fountain Roller Assembler [id number] at 02/18/2017 3:54 AM CDT Christina Siegel P.T. 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 Myotome Testing: WNL ?? Sensation Testing: WNL ?? Deep Tendon Reflexes: Not Tested: Time constraints [...] a week for 4 weeks. Christina Siegel, DPT Date: 03/16/2008 Referring Provider Certification: Referring Provider reviewing certifies that the above treatment/ plan of care is required and authorized, and that the patient's plan will be reviewed every thirty(30) days . METHODS SPECIALIST PRESENT: NA MULTIDISCIPLINARY PATIENT / FAMILY EDUCATION [...] Demonstrated ability, Verbalized recall / understanding Source: [facility] RWHXTRANSXRTFSYS Document Id: [id number] Electronically signed by Jennifer, [facility] Fountain Roller Assembler [id number] at 02/18/2017 3:54 AM CDT documented in this encounter Plan of Treatment Not on filedocumented as of this encounter Visit Diagnoses Not on filedocumented in this encounter
--- OUTSIDE RECORDS SUMMARY | 2022-08-29 12:21 | XMS_ITS | Encounter Summary ---
:1975 Author Organization [facility] Address [address] [place] [address] Care Team Providers Name Role Phone Unavailable Primary Care Provider Unavailable Encounter Details Date Type Department Care Team Description 06/06/2007 Hospital En[facility] INPT/OBSRV Patrice Adamson M.D. [address] [place] [address] (Wo rk) Social History Tobacco Use Types Packs/Day Years Used Date Smoking Tobacco: Never Assessed Sex Assigned at Date Recorded Female 02/11/2018 8:36 AM CDT documented as of this encounter Plan of Treatment Not on filedocumented as of this encounter Visit Diagnoses Not on filedocumented in this encounter
--- OUTSIDE RECORDS SUMMARY | 2022-08-29 12:21 | XMS_ITS | Encounter Summary ---
:1975 Author Organization [facility] Address [address] [place] [address] Care Team Providers Name Role Phone Unavailable Primary Care Provider Unavailable Encounter Details Date Type Department Care Team Description 02/25/2008 Hospital Encounter HX [facility] INPT/OBSRV Ada Duke M.D. [address] [place], [place] [address] (Wo rk) Social History Tobacco Use Types Packs/Day Years Used Date Smoking Tobacco: Never Assessed Sex Assigned at Date Recorded Female 02/11/2018 8:36 AM CDT documented as of this encounter Plan of Treatment Not on filedocumented as of this encounter Visit Diagnoses Not on filedocumented in this encounter
--- OUTSIDE RECORDS SUMMARY | 2022-08-29 12:21 | XMS_ITS | Encounter Summary ---
:1975 Author Organization [facility] Address [address] [place] [address] Care Team Providers Name Role Phone Unavailable Primary Care Provider Unavailable Encounter Details Date Type Department Care Team Description 01/31/2006 Hospital Encounter HX [facility] Donny Cervantes M.D. [address] [place] [address] [phone] (Wo rk) Social History Tobacco Use Types Packs/Day Years Used Date Smoking Tobacco: Never Assessed Sex Assigned at Date Recorded Female 02/11/2018 8:36 AM CDT documented as of this encounter Miscellaneous Notes Miscellaneous - Timmy Hawthorne M.D. - 01/31/2006 12:00 AM CDT [id number] [facility] [address] [facility], [address] Name: Alcon Zamora Birthdate: 1975 SSN: [id number] [facility] Admission Date: 01/30/06 Allergy: Erythromycin PHYSICIAN's DISCHARGE / TRANSFER ORDERS DISCHARGE TO: Home MEDICATIONS: PHARMACY CONSULT: NO Current outpatient prescriptions Medication Sig MOTRIN 600 MG OR TABS 1 TABLET po Q 6 hr prn pain, take with food VICODIN 5-500 MG OR TABS 1 TABLET EVERY 4 TO 6 HOURS NEEDED ALBUTEROL SULFATE IN SOLR None Entered ADVAIR DISKUS IN None Entered CELEXA 20 MG OR TABS 1 TABLET DAILY DIET: regular HOSPITAL COURSE: Complications: anemia Alcon had TVH without problems. Pre op Hgb was 11.7. She was having heavy menses that started 24 hr before surgery. Post op she has done well with normal bowel and bladder function. Pre op a systolic murmur was heard. She has several signs and sx that would be consistant with Marfans. She has not had an cardiac sx or murmur in the past. Discharge hemoglobin - 10.0 g/dL. Admitting Diagnosis: pelvic pain, dysmenorrhea, dyspareunia. Discharge Diagnosis: same, anemia of surgery. PROCEDURE(S) PERFORMED: Total Vaginal Hysterectomy Discharge exam - B/P - 115/51 CV - regular rate rhythm Lungs - clear Abdomen - soft Vaginal discharge - minimal No costovertebral angle (CVA) tenderness No leg tenderness CONDITION ON DISCHARGE: Stable LEVEL OF ACTIVITY: no driving for 1 week, no intercourse for 6 weeks and no lifting over 10 lbs for 6 weeks APPOINTMENTS: Primary Physician in 1 and 6 weeks REFERRALS: Will arrange internal med eval for Marfans at one week check OTHER ORDERS/COMMENTS: Call if heavy bleeding, severe cramps or temperature over 100.4 degrees DISCHARGE SUMMARY DICTATED?: See Hospital Course information above. Time spent in discharging patient - less than [address] TIMMY HAWTHORNE 01/31/2006 Source[facility] RWHX[facility] Document Id: [id number] documented in this encounter Plan of Treatment Not on filedocumented as of this encounter Visit Diagnoses Not on filedocumented in this encounter
--- OUTSIDE RECORDS SUMMARY | 2022-08-29 12:21 | XMS_ITS | Encounter Summary ---
:1975 Author Organization [facility] Address [address] [place] [address] Care Team Providers Name Role Phone Unavailable Primary Care Provider Unavailable Encounter Details Date Type Department Care Team Description 09/20/2006 Hospital Encounter HX NO MAPPING Social History Tobacco Use Types Packs/Day Years Used Date Smoking Tobacco: Never Assessed Sex Assigned at Date Recorded Female 02/11/2018 8:36 AM CDT documented as of this encounter Plan of Treatment Not on filedocumented as of this encounter Visit Diagnoses Not on filedocumented in this encounter
--- OUTSIDE RECORDS SUMMARY | 2022-08-29 12:21 | XMS_ITS | Encounter Summary ---
:1975 Author Organization [facility] Address [address] [place] [address] Care Team Providers Name Role Phone Unavailable Primary Care Provider Unavailable Encounter Details Date Type Department Care Team Description 06/05/2006 Hospital Encounter HX [facility] OBGYN Donny Perez M.D. [address] [place] [address] [phone] (Wo rk) Social History Tobacco Use Types Packs/Day Years Used Date Smoking Tobacco: Never Assessed Sex Assigned at Date Recorded Female 02/11/2018 8:36 AM CDT documented as of this encounter Progress Notes Timmy Perez M.D. - 06/05/2006 10:00 AM CDT [id number] Alcon is a 30 year old white [...] MEDICAL HISTORY: Past Medical History Diagnosis Date EXCESSIVE MENSTRUATION 01/31/06 Hospitalized HEMORRHAGE COMPLIC PROCEDURE ACUTE POSTHEMORRHAGIC ANEMIA PAST SURGICAL HISTORY: Past Surgical History Procedure Date intern brand procedure date: vag del. 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 several times intern brand procedure date: 2000 tubal ligation intern brand procedure date: 1994 D&C Vaginal hysterectomy 01/30/06 CURRENT MEDICATIONS: Current outpatient prescriptions Medication Sig ALBUTEROL SULFATE IN SOLR None Entered ADVAIR DISKUS IN None Entered MOTRIN 600 MG OR TABS 1 TABLET po Q 6 hr prn pain, take with food ALLERGIES: Erythromycin Family HX: Family History Problem Relation Diabetes No family hx of Hypertension No [...] negative GI: negative BREAST: negative : negative BILLING REPRESENTATIVE: as above CV: as above PULMONARY: negative MUSCULOSKELETAL: negative PSYCH: as above SKIN: negative Soc Hx: History Social History Marital Status: Spouse Name: N/A Number of Children: 3 Years of Education: N/A 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 Source: [facility] RWMCHXTRANSXRTFSYS Document Id: [id number] documented in this encounter Plan of Treatment Not on filedocumented as of this encounter Visit Diagnoses Not on filedocumented in this encounter
--- OUTSIDE RECORDS SUMMARY | 2022-08-29 12:21 | XMS_ITS | Encounter Summary ---
:1975 Author Organization [facility] Address [address] [place] [address] Care Team Providers Name Role Phone Unavailable Primary Care Provider Unavailable Encounter Details Date Type Department Care Team Description 05/05/2007 Hospital Encounter HX [facility] OBGYN Provider, Histor ical Social History Tobacco Use Types Packs/Day Years Used Date Smoking Tobacco: Never Assessed Sex Assigned at Date Recorded Female 02/11/2018 8:36 AM CDT documented as of this encounter Miscellaneous Notes Miscellaneous - Jennifer, Denice Provider Ser - 05/05/2007 12:00 AM CDT [id number] Alcon Zamora [address] [place] [address] May 05, 2007 MR# [id number] Dear Alcon Bobbi Noah, APPOINTMENT REMINDER: Our record indicates that it is time for you to be seen for an office visit with Timmy Perez M.D. You may call our office at [phone] to schedule an appointment for an Annual Physical. Please check with your insurance carrier for authorization prior to this appointment. Please disregard this notice if you have already received authorization from your insurance company and have made an appointment. Sincerely, [facility] Source: [facility] Document Id: [id number] documented in this encounter Plan of Treatment Not on filedocumented as of this encounter Visit Diagnoses Not on filedocumented in this encounter
--- OUTSIDE RECORDS SUMMARY | 2022-08-29 12:21 | XMS_ITS | Encounter Summary ---
:1975 Author Organization [facility] Address [address] [place] [address] Care Team Providers Name Role Phone Unavailable Primary Care Provider Unavailable Encounter Details Date Type Department Care Team Description 06/20/2006 - 06/21/2006 Hospital Encounter HX [facility] Social History Tobacco Use Types Packs/Day Years Used Date Smoking Tobacco: Never Assessed Sex Assigned at Date Recorded Female 02/11/2018 8:36 AM CDT documented as of this encounter Plan of Treatment Not on filedocumented as of this encounter Visit Diagnoses Not on filedocumented in this encounter
--- OUTSIDE RECORDS SUMMARY | 2022-08-29 12:21 | XMS_ITS | Encounter Summary ---
:1975 Author Organization [facility] Address [address] [place] [address] Care Team Providers Name Role Phone Unavailable Primary Care Provider Unavailable Encounter Details Date Type Department Care Team Description 03/12/2008 Hospital Encounter HX [facility] OBGYN Uma Cooley L.P.N. [address] [place], [place] [phone] Social History Tobacco Use Types Packs/Day Years Used Date Smoking Tobacco: Never Assessed Sex Assigned at Date Recorded Female 02/11/2018 8:36 AM CDT documented as of this encounter Miscellaneous Notes Telephone Encounter - Uma Cooley, L.P.N. - 03/12/2008 12:00 AM CDT [id number] Alcon saw you 03/08 for exam. Forgot to discuss increased fatigue,no energy. Going to bed at 7pm. Getting sweats and having palms start sweating for no apparent reason. She is coming in on 03/16 for lab and would like any additional labs ordered. [facility] Document Id: [id number] documented in this encounter Plan of Treatment Not on filedocumented as of this encounter Visit Diagnoses Not on filedocumented in this encounter
--- OUTSIDE RECORDS SUMMARY | 2022-08-29 12:21 | XMS_ITS | Encounter Summary ---
:1975 Author Organization [facility] Address [address] [place] [address] Care Team Providers Name Role Phone Unavailable Primary Care Provider Unavailable Encounter Details Date Type Department Care Team Description 03/18/2008 Hospital Encounter HX NO MAPPING Jef Siegel P.T. [address] [place], [place] [phone] Social History Tobacco Use Types Packs/Day Years Used Date Smoking Tobacco: Never Assessed Sex Assigned at Date Recorded Female 02/11/2018 8:36 AM CDT documented as of this encounter Progress Notes Maryse Siegel P.T. - 03/18/2008 8:00 AM CDT [id number] PHYSICAL THERAPY DAILY VISIT NOTES SUBJECTIVE: Since [...] Total Time-Based Code Only Minutes: 25 minutes. Selling Specialist Present: SONALI Therapist: Maryse Siegel DPT [facility] RWMCHXTRANSXRTFSYS Document Id: [id number] documented in this encounter Plan of Treatment Not on filedocumented as of this encounter Visit Diagnoses Not on filedocumented in this encounter
--- OUTSIDE RECORDS SUMMARY | 2022-08-29 12:21 | XMS_ITS | Encounter Summary ---
:1975 Author Organization [facility] Address [address] [place] [address] Care Team Providers Name Role Phone Unavailable Primary Care Provider Unavailable Encounter Details Date Type Department Care Team Description 10/08/2007 Hospital Encounter HX [facility] Provider, David modi Social History Tobacco Use Types Packs/Day Years Used Date Smoking Tobacco: Never Assessed Sex Assigned at Date Recorded Female 02/11/2018 8:36 AM CDT documented as of this encounter Plan of Treatment Not on filedocumented as of this encounter Visit Diagnoses Not on filedocumented in this encounter
--- OUTSIDE RECORDS SUMMARY | 2022-08-29 12:21 | XMS_ITS | Encounter Summary ---
:1975 Author Organization [facility] Address [address] [place] [address] Care Team Providers Name Role Phone Unavailable Primary Care Provider Unavailable Encounter Details Date Type Department Care Team Description 03/08/2008 [facility] OBGYN Donny Perez M.D. [address] [place] [phone] (Wo rk) Social History Tobacco Use Types Packs/Day Years Used Date Smoking Tobacco: Never Assessed Sex Assigned at Date Recorded Female 02/11/2018 8:36 AM CDT documented as of this encounter Progress Notes Timmy Perez M.D. - 03/08/2008 8:30 AM CDT [id number] Alcon is a 32 year old female here for her annual exam. She has Had a vagianl hysterectomy. She has been having recurrant neck pain. This seems to be more right sided muscle pain. 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) pneumonia several times freight car inspector procedure date: 2000 tubal ligation freight car inspector procedure date: 1994 D&C Vaginal hysterectomy 01/30/06 Current outpatient prescriptions Medication Sig CELEXA 20 MG OR TABS ONE DAILY ADVAIR DISKUS IN None Entered ALLERGIES: Erythromycin Family History Problem Relation Diabetes No family [...] negative GI: negative BREAST: negative : negative FLEXIBLE SHAFT WINDER: negative CV: negative PULMONARY: negative MUSCULOSKELETAL: as above PSYCH: negative, doing well on Celexa SKIN: negative History Social History Marital Status: Spouse Name: N/A Number of Children: N/A Years of Education: N/A 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 Social History Main Topics Tobacco Use: Never Alcohol Use: Yes Drug Use: No Sexually Active: Yes -- Male partner(s) Control/ Protection: Surgical Other Topics Concern Blood Transfusions Yes 1995 Caffeine No Sleep Concern Yes Stress Concern [...] Plan: Cont celexa Physical therapy consult Lipids Source: [facility] DEANDREHXTRANSXRTFSYS Document Id: [id number] Electronically signed by Jennifer, [facility] Hardboard Panel Printer [id number] at 02/18/2017 3:18 AM CDT documented in this encounter Plan of Treatment Not on filedocumented as of this encounter Visit Diagnoses Not on filedocumented in this encounter
--- OUTSIDE RECORDS SUMMARY | 2022-08-29 12:21 | XMS_ITS | Encounter Summary ---
:1975 Author Organization [facility] Address [address] [place] [address] Care Team Providers Name Role Phone Unavailable Primary Care Provider Unavailable Encounter Details Date Type Department Care Team Description 03/16/2008 Hospital Encounter HX [facility] Provider, Historic al Social History Tobacco Use Types Packs/Day Years Used Date Smoking Tobacco: Never Assessed Sex Assigned at Date Recorded Female 02/11/2018 8:36 AM CDT documented as of this encounter Miscellaneous Notes Miscellaneous - Timmy Perez M.D. - 03/16/2008 8:00 AM CDT [id number] Alcon Martines Noah [address] [place] [address] [id number] March 29, 2008 Dear Alcon, I am writing to inform you of the results of the laboratory tests you had done recently. CHOL 188 03/16/08 normal total cholesterol less than 200 TRIG 100 03/16/08 normal triglycerides (fat in blood) less than 149 HDL 48 03/16/08 normal good cholesterol greater than 50 LDL 120 03/16/08 normal bad cholesterol less than 130 HGB 14.9 02/27/08 (blood count) normal for females above 11.7 GLC 84 03/16/08 (blood sugar) normal less than 110 (no diabetes) TSH 2.95 03/16/08 (thyroid) normal 0.4 -5.0 Female hormones - normal These are all good. Thank you for allowing me to participate in your care. If you have any further questions or problems, please contact me at [phone] in Obstetrics/Gynecology. Sincerely, Timmy Perez M.D. OBSTETRICS/GYNECOLOGY Source: [facility] Document Id: [id number] documented in this encounter Plan of Treatment Not on filedocumented as of this encounter Visit Diagnoses Not on filedocumented in this encounter
--- OUTSIDE RECORDS SUMMARY | 2022-08-29 12:21 | XMS_ITS | Encounter Summary ---
:1975 Author Organization [facility] Address [address] [place] [address] Care Team Providers Name Role Phone Unavailable Primary Care Provider Unavailable Encounter Details Date Type Department Care Team Description 03/22/2008 Hospital Encounter HX NO MAPPING Jef Siegel P.T. [address] [place], [place] [address] Social History Tobacco Use Types Packs/Day Years Used Date Smoking Tobacco: Never Assessed Sex Assigned at Date Recorded Female 02/11/2018 8:36 AM CDT documented as of this encounter Progress Notes Maryse Siegel P.T. - 03/22/2008 8:00 AM CDT [id number] PHYSICAL THERAPY DAILY VISIT NOTES SUBJECTIVE: Since [...] Total Time-Based Code Only Minutes: 23 minutes. Motion Picture Set Up Worker Present: NA Therapist: Maryse Siegel DPT Source: [facility] RWHXTRANSXRTFSYS Document Id: [id number] Electronically signed by Jennifer [facility] Hospitalrol[facility] Store Specialist [id number] at 02/18/2017 3:54 AM CDT documented in this encounter Plan of Treatment Not on filedocumented as of this encounter Visit Diagnoses Not on filedocumented in this encounter
--- OUTSIDE RECORDS SUMMARY | 2022-08-29 12:21 | XMS_ITS | Encounter Summary ---
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 Initial 45 minute appointments have been scheduled in our Psychology Department with: Nicko Horvath., D.C.S.W. Monday, October 08, 2007 at 8:00 AM Monday, October 22, 2007 at 8:00 AM Monday, November 05, 2007 at 8:00 AM located on the 3rd floor: [facility] [place] [facility] at [address] [place] [address]. If the above scheduled appointment is not convenient, please contact our office as soon as possible at or to reschedule. You need to contact your insurance company prior to your appointment for a possible prior authorization to avoid delays in payment or you may be responsible for payment. There will be a number on your insurance card for you to call. Please bring the authorization number that the insurance company gives you, to your first appointment.It is also important that you bring along all of your insurance information at the time of your visit so that billing can be handled promptly. When you make an appointment with our department, time is set aside for you. If you fail to arrive for this appointment, it is time that could have been used by other patients requesting these services. Therefore, if you are unable to keep this appointment, please contact our office prior to your appointment. If you do not contact us at least 24 hours prior to your appointment, you will be billed a Late Cancellation/ No Show Fee. Your insurance company will not reimburse for this fee; therefore, thecharge would be billed directly to you. The forms enclosed with this letter should be completed and returned to us prior to your scheduled appointment. This would include all forms on the right side of the folder. We trust that your experience with us will be a pleasant and worthwhile one. Sincerely, [facility] Contact Information September 30, 2007 Intake done by: [facility]#: [id number] NAME: Alcon Zamora SSN: [id number] : 1975 Age: [age] year old Sex: female Spouse/ S.O.: - Parent/Guardian: - ADDRESS: [address] [place] [phone] Phone Numbers: [phone] (home) Phone Contact: Home: Yes Messages: Yes Work: No Messages: No Written Contact: Home: Yes Work: No Prior Contact with Psychology? No Date: - Doctor seen: NA Payor: [employer] Plan: [employer] OPEN ACCESS FULLY INSURED Product Type: HMO Insurance Information Date Verified: W/: Insurance Company: Policy Phone # Policy [employer] Policy # Group # Effective Date OV CoPay $ Deductible Pre-authorization ? Y / N # O. P. Mental Health Coverage Visits Allowed Psychological Testing ?. Psychiatry Md. Mgmt? Eating Disorders? Excluded Dx's Epic Note date Court Ordered/Litigation No Technical Advisor/Agency Plastic Straightening Roll Operator Address [facility]/ Zip Phone # Referral Information Caller: Self Reason: Anx. Not sleeping, depression Referred by: - Location: - Primary Care Physician: No primary provider on file. Medication: - Dosage: - Appointments Appt. With: LEONARD Pena Initial: 10/08/07 @ 8:00 a.m. F/U: 10/22/07 @ 8:00 a.m. 3rd.: 11/05/07 @ 8:00 a.m. Intake Packet Sent on _09/30/07 Wait List No Source: [facility] RWMCHXTRANSXRTFSYS Document Id: [id number] documented in this encounter Plan of Treatment Not on filedocumented as of this encounter Visit Diagnoses Not on filedocumented in this encounter
--- OUTSIDE RECORDS SUMMARY | 2022-08-29 12:21 | XMS_ITS | Encounter Summary ---
:1975 Author Organization [facility] Address [address] [place] [address] Care Team Providers Name Role Phone Unavailable Primary Care Provider Unavailable Encounter Details Date Type Department Care Team Description 02/08/2006 Hospital Encounter HX [facility] OBDonny Carter M.D. [address] [place] [address] (Wo rk) Social History Tobacco Use Types Packs/Day Years Used Date Smoking Tobacco: Never Assessed Sex Assigned at Date Recorded Female 02/11/2018 8:36 AM CDT documented as of this encounter Progress Notes Timmy Perez M.D. - 02/08/2006 10:45 AM CDT [id number] Post op: 1 week post TVH and Jose is having no problems. Her pre op pain is gone. Exam: vag cuff is healing well with no tenderness. Dx: normal post op exam Plan: cont post op cares [facility] Document Id: [id number] documented in this encounter Plan of Treatment Not on filedocumented as of this encounter Visit Diagnoses Not on filedocumented in this encounter
--- OUTSIDE RECORDS SUMMARY | 2022-08-29 12:21 | XMS_ITS | Encounter Summary ---
:1975 Author Organization [facility] Address [address] [place] [address] Care Team Providers Name Role Phone Unavailable Primary Care Provider Unavailable Encounter Details Date Type Department Care Team Description 05/21/2006 - Hospital Encounter HX NO MAPPING David Estes M.D. 05/22/2006 [address] [place] [address] (Wo rk) Social History Tobacco Use Types Packs/Day Years Used Date Smoking Tobacco: Never Assessed Sex Assigned at Date Recorded Female 02/11/2018 8:36 AM CDT documented as of this encounter Plan of Treatment Not on filedocumented as of this encounter Visit Diagnoses Not on filedocumented in this encounter
--- OUTSIDE RECORDS SUMMARY | 2022-08-29 12:21 | XMS_ITS | Encounter Summary ---
:1975 Author Organization [facility] Address [address] [place] [address] Care Team Providers Name Role Phone Unavailable Primary Care Provider Unavailable Encounter Details Date Type Department Care Team Description 06/20/2006 Hospital Encounter HX NO MAPPING Social History Tobacco Use Types Packs/Day Years Used Date Smoking Tobacco: Never Assessed Sex Assigned at Date Recorded Female 02/11/2018 8:36 AM CDT documented as of this encounter Plan of Treatment Not on filedocumented as of this encounter Visit Diagnoses Not on filedocumented in this encounter
--- OUTSIDE RECORDS SUMMARY | 2022-08-29 12:21 | XMS_ITS | Encounter Summary ---
:1975 Author Organization [facility] Address [address] [place] [address] Care Team Providers Name Role Phone Unavailable Primary Care Provider Unavailable Encounter Details Date Type Department Care Team Description 02/03/2006 - 02/04/2006 Hospital Encounter HX [facility] 4C Social History Tobacco Use Types Packs/Day Years Used Date Smoking Tobacco: Never Assessed Sex Assigned at Date Recorded Female 02/11/2018 8:36 AM CDT documented as of this encounter Plan of Treatment Not on filedocumented as of this encounter Visit Diagnoses Not on filedocumented in this encounter
--- OUTSIDE RECORDS SUMMARY | 2022-08-29 12:22 | XMS_ITS | Encounter Summary ---
:1975 Author Organization [facility] Address [address] [place] [address] Care Team Providers Name Role Phone Unavailable Primary Care Provider Unavailable Encounter Details Date Type Department Care Team Description 12/27/2005 Hospital Encounter HX [facility] XRAY Provider, Histori monika Social History Tobacco Use Types Packs/Day Years Used Date Smoking Tobacco: Never Assessed Sex Assigned at Date Recorded Female 02/11/2018 8:36 AM CDT documented as of this encounter Plan of Treatment Not on filedocumented as of this encounter Visit Diagnoses Not on filedocumented in this encounter
--- OUTSIDE RECORDS SUMMARY | 2022-08-29 12:22 | XMS_ITS | Encounter Summary ---
:1975 Author Organization [facility] Address [address] [place] [address] Care Team Providers Name Role Phone Unavailable Primary Care Provider Unavailable Encounter Details Date Type Department Care Team Description 12/27/2005 Hospital Encounter HX NO MAPPING Timmy Perez M.D. [address] [place] [address] [phone] (Wo rk) Social History Tobacco Use Types Packs/Day Years Used Date Smoking Tobacco: Never Assessed Sex Assigned at Date Recorded Female 02/11/2018 8:36 AM CDT documented as of this encounter Plan of Treatment Not on filedocumented as of this encounter Visit Diagnoses Not on filedocumented in this encounter
--- OUTSIDE RECORDS SUMMARY | 2022-08-29 12:22 | XMS_ITS | Encounter Summary ---
:[address] [facility] Address [address] [place] [address] Care Team Providers Name Role Phone Unavailable Primary Care Provider Unavailable Encounter Details Date Type Department Care Team Description 08/04/2004 Hospital Encounter HX [facility] EHW Provider, Historic al Social History Tobacco Use Types Packs/Day Years Used Date Smoking Tobacco: Never Assessed Sex Assigned at Date Recorded Female 02/11/2018 8:36 AM CDT documented as of this encounter Plan of Treatment Not on filedocumented as of this encounter Visit Diagnoses Not on filedocumented in this encounter
--- OUTSIDE RECORDS SUMMARY | 2022-08-29 12:22 | XMS_ITS | Encounter Summary ---
:1975 Author Organization [facility] Address [address] [place] [address] Care Team Providers Name Role Phone Unavailable Primary Care Provider Unavailable Encounter Details Date Type Department Care Team Description 12/27/2005 Hospital Encounter HX [facility] Donny Cervantes M.D. [address] [place] [address] [phone] (Wo rk) Social History Tobacco Use Types Packs/Day Years Used Date Smoking Tobacco: Never Assessed Sex Assigned at Date Recorded Female 02/11/2018 8:36 AM CDT documented as of this encounter Miscellaneous Notes Telephone Encounter - Leena Celis R.N. - 12/27/2005 12:00 AM CDT [id number] TELEPHONE TRIAGE ENCOUNTER FORM Date: 12/27/2005 PCP: No primary provider on file. Patient Name: Alcon Zamora Gender: female : 1975 Age: [age] year old Time: 9:45 AM Phone Numbers: [phone] (home) Pharmacy: Data Unavailable ASSESSMENT Presenting Problem: pelvic pain Subjective/objective: Pt called with complaints of pelvic pain, states has hx of chronic pelvic pain for many years. Previous pt of Dr. Perez'rolando in [place]. States woke up this am with pain low mid pelvic, rates pain 9/10. Moffit faint this AM upon rising, not convertable [...] agrees to plan? Yes EVALUATION / FOLLOW-UP Source: [facility] RWHXTRANSXRTFSYS Document Id: [id number] documented in this encounter Plan of Treatment Not on filedocumented as of this encounter Visit Diagnoses Not on filedocumented in this encounter
--- OUTSIDE RECORDS SUMMARY | 2022-08-29 12:22 | XMS_ITS | Encounter Summary ---
:1975 Author Organization [facility] Address [address] [place] [address] Care Team Providers Name Role Phone Unavailable Primary Care Provider Unavailable Encounter Details Date Type Department Care Team Description 01/30/2006 Hospital Encounter HX NO MAPPING Provider, Historical Social History Tobacco Use Types Packs/Day Years Used Date Smoking Tobacco: Never Assessed Sex Assigned at Date Recorded Female 02/11/2018 8:36 AM CDT documented as of this encounter Miscellaneous Notes Miscellaneous - Conversion, Historical Provider Ser - 01/30/2006 8:40 AM CDT [id number] [place] [id number] [facility], [address] Name: Alcon Zamora Birthdate: 1975 SSN: [id number] [facility] Allergy: Erythromycin Discharge Date: 01/31/2006 Discharge Instructions Discharged to: Home Activities: -Up as tolerated No driving for one week, no intercourse for 6 weeks, and no lifting over 10 pounds for 6 weeks Medications: MOTRIN 600 MG OR TABS 1 TABLET by mouth every 6 hours as needed for pain, take with food- begin at 2pm today VICODIN 5-500 MG OR TABS 1 TABLET EVERY 4 TO 6 HOURS NEEDED ALBUTEROL SULFATE IN SOLR None Entered ADVAIR DISKUS IN None Entered CELEXA 20 MG OR TABS 1 TABLET DAILY last dose 01/31 at 7:30am Discharge Vital Signs: Temp: 98.4 degrees Fahrenheit; B/P: 117/59mHg; Pulse:76; Respiration: 16. Pain Management: Most recent pain medication toradol; Dose: 30mg: Route: IV; Time last given: 7:30am. Discharge Pain Score: 2/10 . Time the discharge pain score was documented 7:30am. Nursing Instructions: Food Drug Interactions Explained / Discussed: Yes Call if heavy bleeding, sever cramps or temperature over 100.4 Diet: regular and as at home Appointment(s): To see Dr. Perez on SaturdayFebruary 08 at 10:45am and then March 14 at 11:00am I have all of my belongings . I understand my discharge instructions. My medications were reviewed with me .. Patient's Signature: Nurse Discharging this patient signature: RN Signature & Date: Rose Strawberry Date: 01/31/2006 Please see paper chart for additional discharge documentation info: (time, how & by). Source: [facility] RWHXTRANSXRTFSYS Document Id: [id number] documented in this encounter Plan of Treatment Not on filedocumented as of this encounter Visit Diagnoses Not on filedocumented in this encounter
--- OUTSIDE RECORDS SUMMARY | 2022-08-29 12:22 | XMS_ITS | Encounter Summary ---
:1975 Author Organization [facility] Address [address] [place] [address] Care Team Providers Name Role Phone Unavailable Primary Care Provider Unavailable Encounter Details Date Type Department Care Team Description 01/02/2006 Hospital Encounter HX [facility] Donny Cervantes M.D. [address] [place] [address] [phone] (Wo rk) Social History Tobacco Use Types Packs/Day Years Used Date Smoking Tobacco: Never Assessed Sex Assigned at Date Recorded Female 02/11/2018 8:36 AM CDT documented as of this encounter Progress Notes Timmy Perez M.D. - 01/02/2006 9:00 AM CDT [id number] Alcon has follow up of severe pelvic/uterine [...] min, counseling (as in plan) 15 min [facility] Document Id: [id number] Electronically signed by Jennifer, [facility] Corporate Securities Research Analyst [id number] at 02/18/2017 2:56 PM CDT documented in this encounter Plan of Treatment Not on filedocumented as of this encounter Visit Diagnoses Not on filedocumented in this encounter
--- OUTSIDE RECORDS SUMMARY | 2022-08-29 12:22 | XMS_ITS | Encounter Summary ---
:1975 Author Organization [facility] Address [address] [place] [address] Care Team Providers Name Role Phone Unavailable Primary Care Provider Unavailable Encounter Details Date Type Department Care Team Description 01/28/[address] [facility] OBGYN Donny Perez M.D. [address] [place] [phone] (Wo rk) Social History Tobacco Use Types Packs/Day Years Used Date Smoking Tobacco: Never Assessed Sex Assigned at Date Recorded Female 02/11/2018 8:36 AM CDT documented as of this encounter Progress Notes Timmy Perez M.D. - 01/28/2006 3:00 PM CDT [id number] Alcon is a 30 year old white female, SAB1, who is scheduled for TVH because of episodic severepelvic pain and dysmenorrhea. She has noted dyspareunia with every episode of intercourse in the last few months. She is now not sexually active because of this. She has had a tubal ligation. The pain is not associated with bowel or bladder sx. 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 PAST MEDICAL HISTORY: No past medical history on file. 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 Rw rn emergency room (abstracted) pneumonia several times lacquer pin press operator procedure date: 2000 tubal ligation lacquer pin press operator procedure date: 1994 D&C CURRENT MEDICATIONS: Current outpatient prescriptions Medication Sig CELEXA 20 MG OR TABS 1 TABLET [...] of Thyroid No family hx of reviewed 01/28/2006 REVIEW OF SYSTEMS: Otherwise negative unless specified in HPI. NEUROLOGIC: negative EYES: negative ENT: negative GI: negative BREAST: negative : negative ABRASIVE GRADER: as above CV: negative PULMONARY: negative MUSCULOSKELETAL: [...] Transfusions Yes 1994 Caffeine No Sleep Concern No Stress Concern No Weight Concern No Diet [...] pain, dymenorrhea dyspareunia Plan: total vaginal hysterectomy Source: [facility] RWHXTRANSXRTFSYS Document Id: [id number] Electronically signed by Conversion, [facility] Access Specialist [id number] at 02/18/2017 12:51 PM CDT documented in this encounter Plan of Treatment Not on filedocumented as of this encounter Visit Diagnoses Not on filedocumented in this encounter
--- OUTSIDE RECORDS SUMMARY | 2022-08-29 12:22 | XMS_ITS | Encounter Summary ---
:1975 Author Organization [facility] Address [address] [place] [address] Care Team Providers Name Role Phone Unavailable Primary Care Provider Unavailable Encounter Details Date Type Department Care Team Description 01/30/2006 - Hospital Encounter HX NO MAPPING Timmy Perez M.D. 01/31/[address] [place] [address] [phone] (Wo rk) Social History Tobacco Use Types Packs/Day Years Used Date Smoking Tobacco: Never Assessed Sex Assigned at Date Recorded Female 02/11/2018 8:36 AM CDT documented as of this encounter Plan of Treatment Not on filedocumented as of this encounter Visit Diagnoses Not on filedocumented in this encounter
--- OUTSIDE RECORDS SUMMARY | 2022-08-29 12:22 | XMS_ITS | Encounter Summary ---
:1975 Author Organization [facility] Address [address] [place] [address] Care Team Providers Name Role Phone Unavailable Primary Care Provider Unavailable Encounter Details Date Type Department Care Team Description 12/27/2005 Hospital Encounter HX [facility] OBGYN Donny Perez M.D. [address] [place] [phone] (Wo rk) Social History Tobacco Use Types Packs/Day Years Used Date Smoking Tobacco: Never Assessed Sex Assigned at Date Recorded Female 02/11/2018 8:36 AM CDT documented as of this encounter Progress Notes Timmy Perez M.D. - 12/27/2005 11:00 AM CDT [id number] Alcon is a 30 year old white [...] dyspareunia. She had 3 spont vag deliveries. 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 PAST SURGICAL HISTORY: No past surgical history on file. CURRENT MEDICATIONS: Current outpatient prescriptions Medication Sig CELEXA 20 MG OR TABS 1 TABLET DAILY ALLERGIES: Erythromycin Family HX: No patent prosecution paralegal cancer, no colon cancer REVIEW OF SYSTEMS: Otherwise negative unless specified in HPI. 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 Social History Main Topics Tobacco Use: Never Alcohol Use: Not on file Drug Use: No Sexually Active: Yes -- Male partners Control/ Protection: Surgical Other Topics Concern Not on file Social History Narrative No narrative on file [...] pain. Rtn 5 days for follow up Source: [facility] RWMCHXTRANSXRTFSYS Document Id: [id number] documented in this encounter Plan of Treatment Not on filedocumented as of this encounter Visit Diagnoses Not on filedocumented in this encounter
--- OUTSIDE RECORDS SUMMARY | 2022-08-29 12:22 | XMS_ITS | Encounter Summary ---
:1975 Author Organization [facility] Address [address] [place] [address] Care Team Providers Name Role Phone Unavailable Primary Care Provider Unavailable Encounter Details Date Type Department Care Team Description 01/07/2006 Hospital Encounter HX [facility] Donny Cervantes M.D. [address] [place] [address] [phone] (Wo rk) Social History Tobacco Use Types Packs/Day Years Used Date Smoking Tobacco: Never Assessed Sex Assigned at Date Recorded Female 02/11/2018 8:36 AM CDT documented as of this encounter Miscellaneous Notes Miscellaneous - Conversion, Historical Provider Ser - 01/07/2006 12:00 AM CDT [id number] SURGERY SCHEDULE CHECKLIST Patient Name: Alcon Zamora Date of : 1975 Gender: female Patient Phone numbers: [phone] (home) , INSURANCE INFORMATION: Payor: [employer] Plan: [employer] OPEN ACCESS Product Type: HMO Insurance/[place]/WC ID number: [id number] [place] consent form signed if needed: Surgeon: Dr. Perez (Timmy Perez M.D.) DATE OF SURGERY: 01/30/2006 Place of Surgery: [place] Procedure: TVH CPT Code: Total Vaginal Hysterectomy (TVH) - 95748 Diagnosis (reason for surgery)/Diagnosis Code: fibroids, abnormal bleeding No diagnosis found. 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 History Substance Use Topics Tobacco Use: Never Alcohol Use: Not on file Nutrition assessment for weight management offered: N/A Alcohol use: Yes - amount : 1 glass of wine every 2 months . Smoking cessation offered: N/A DISCHARGE PLANNING ASSESSMENT: Plan after Discharge: Home - With caregiver/responsible person able to drive patient home and stay with them to provide care as needed. With help from . Resident of: How are you getting home/to other facility after discharge from hospital? TRIGGERS FOR MORE COMPLETE DISCHARGE PLANS: None Person responsible for consent for procedure? Self PREOP EDUCATION Date of Pre-0p Class: Allergies: Erythromycin Does patient have latex allergy? No Diabetes? No Hospital Information given: YES Taking herbal supplements? No Coumadin/blood thinner? No Have you had a heart attack or stroke in the last 6 months? NO Have you had heart surgery, a heart vessel balloon, stent or angiogaphy in the last 5 months? NO Do you have heart valve disease? NO Do you have congestive heart failure(CHF)? NO Have you had an angina attack in the last month requiring a trip to the emergency room or hospitalization? NO Do you have a Hypertension? NO Have you had an asthma attack in the last month requiring a trip to the emergency room or hospitalization? NO Do you have chronic obstructive pulmonary disease (COPD)? Yes emphysema and asthma , Are you on home oxygen (O2) therapy? NO Do you have sleep apnea? NO Have you ever had a tracheostomy in your neck for breathing? NO Have you ever had a cervical neck fusion? NO Have you ever had cirrhosis of the liver? NO Do you require kidney dialysis? NO Do you have a personal or family history of severe allergic reactions to anesthetic agents, including malignant hyperthermia or atypical pseudocholinsterase disease (enzyme deficiency disease) NO If the patient answers YES to any of the above questions route letter to the following address (cut and paste into 'ROUTE TO' section) : C RW ANESTHESIOLOGY P RW SSC SCHEDULING P RW WC P RW PATIENT ACCOUNTS ([facility]) P RW DISCHARGE PLANNING POOL C RW BARIATRIC TEAM Updated 08/14/2005 [facility] Document Id: [id number] documented in this encounter Plan of Treatment Not on filedocumented as of this encounter Visit Diagnoses Not on filedocumented in this encounter
[2022-08-29 12:30] VITALS: PULSE 61; O2SAT 96
== END 2022-08-29 12:35 | disposition home or self-care (01) ==
LOC: ED 12:06
PROVIDERS: Emergency Provider Family Medicine; PCP Family Medicine
DX: M79.605 Pain in left leg (principal)
CPT/HCPCS: 36415; 80048; 81001; 85025; 87086; 93971; 99284

== ENCOUNTER 2022-08-30 13:27 | Outpatient (CLI) | payer OTHER, SELFPAY ==
--- NOTE | 2022-08-30 15:00 | CRLHL7_ITS ---
For Patients: As a result of the Century Cures Act, medical imaging exams and procedure reports are released immediately into your electronic medical record. You may view this report before your referring provider. If you have questions, please contact your health care provider. Indication: Flank and groin pain Technique: Noncontrast CT abdomen and pelvis Please note that all CT scans at this facility use dose modulation, iterative reconstruction, and/or weight-based dosing when appropriate to reduce radiation dose to as low as reasonably achievable. Comparison: CT 07/03/2022, ultrasound 07/03/2022 Findings: Interval postoperative changes to the pelvis including hysterectomy. Previously noted tubular structure within the adnexa is no longer visualized. A small amount of pelvic free fluid is present within the right side of the posterior pelvis. No evidence of adnexal mass. Previously visualized ovarian cysts are no longer present. No free air. No abscess. No bowel obstruction. The bladder is within normal limits. No evidence of ureteral stone. No evidence of abdominal wall hernia. Kidneys and adrenal glands are normal. Normal spleen and liver. Gallbladder is absent. Pancreas is normal. Incidental intraosseous hemangioma within 1 of the vertebral bodies. No pleural effusion. Similar appearance of the right lower lobe. Impression: Postoperative changes. Mild right pelvic free fluid without abscess. No bowel obstruction or inflammatory change. No evidence of nephrolithiasis or ureteral stone. Please note that all CT scans at this facility use dose modulation, iterative reconstruction, and/or weight-based dosing when appropriate to reduce radiation dose to as low as reasonably achievable. Dictated by Dillan Rocha MD @ 08/30/2022 3:04:50 PM (Electronically Signed)
== END 2022-08-30 13:28 | disposition home or self-care (01) ==
LOC: CT 13:27
PROVIDERS: PCP Family Medicine; Visit Provider Obstetrics & Gynecology
DX: R10.9 Unspecified abdominal pain (principal)
CPT/HCPCS: 74176

== ENCOUNTER 2022-09-24 23:17 | Emergency (ER) | payer OTHER, SELFPAY ==
[2022-09-24 23:36] VITALS: BP 152/91; PULSE 107; RESP 18; TEMP 36.7; O2SAT 95
[2022-09-24 23:52] VITALS: BP 144/80; PULSE 100; PULSE 104; RESP 16; O2SAT 94; O2SAT 95
[2022-09-25] VITALS (13 sets, daily range): BP systolic 136–147; BP diastolic 80–107; PULSE 66–103; O2SAT 93–96
[2022-09-25] MEDS: 0.9 % SODIUM CHLORIDE 1000 ml 1,000 ML IV
[2022-09-25 00:47] LABS: Chloride* 104 mmol/L (96-114); Sodium* 137 mmol/L (135-149)
[2022-09-25 00:50] LABS: Blood Urea Nitrogen* 18 mg/dL (5-24); Carbon Dioxide* 27 mmol/L (20-32); Creatinine* 0.5 mg/dL (0.5-1.5); Estimated Glomerular Filt Rate 117 ml/min
[2022-09-25 00:51] LABS: Calcium* 9.4 mg/dL (8.4-10.6); Glucose* 142 mg/dL (60-115)
[2022-09-25 01:01] LABS: Basophils Percent Auto 0.1 % (0.0-3.0); Hematocrit 37.9 % (33.0-51.0); Hemoglobin* 12.9 gm/dL (12.0-16.0); Immature Granulocytes Pct Auto 1.6 %; Lymphocytes Percent Auto 8.4 % (20-44); Mean Corpuscular HGB Conc 34 gm/dL (32-36); Mean Corpuscular Hemoglobin 31 pg (26-34); Mean Corpuscular Volume 91 fL (80-100); Monocytes Percent Auto 4.8 % (0.0-11.0); Neutrophils Percent Auto 85.1 % (42.0-72.0); Platelet Count* 257 K/uL (140-440); RDW Coefficient of Variation % 12.1 % (11.5-15.5); Red Blood Count 4.19 m/uL (4.00-5.20); White Blood Count* 15.85 K/uL (4.50-11.00)
[2022-09-25 01:02] LABS: NT Pro B Type NatriureticPept* 420 pg/mL; Slide Review Reflex No
[2022-09-25 01:10] LABS: D Dimer Quantitative* 1.36 ug/ml (0.00-0.50)
[2022-09-25 01:11] LABS: C Reactive Protein* 15.7 mg/dL (0.5-1.0)
--- NOTE | 2022-09-25 01:46 | CRLHL7_ITS ---
For Patients: As a result of the Century Cures Act, medical imaging exams and procedure reports are released immediately into your electronic medical record. You may view this report before your referring provider. If you have questions, please contact your health care provider. INDICATION: Chest pain and crepitus. TECHNIQUE: CT chest PE was acquired with 95 cc Isovue 370 IV contrast. COMPARISON: 08/09/2021. FINDINGS: Heart and vasculature: Contrast opacification of the pulmonary arterial tree is adequate. No sign of pulmonary embolism. Heart size is normal. Thoracic aorta and pulmonary artery are normal in caliber. Lungs and pleura: Airspace infiltrate present in the left lower lobe. Regional areas of emphysema and scarring. No pleural effusions, pleural thickening, or pneumothorax. Lymph nodes/mediastinum: No mediastinal, hilar, or axillary adenopathy. Chest wall: No masses. Upper abdomen: No acute or significant findings. Bones: Unremarkable for age. IMPRESSION: 1. No pulmonary embolism. 2. Left lower lobe pneumonia. Please note that all CT scans at this facility use dose modulation, iterative reconstruction, and/or weight-based dosing when appropriate to reduce radiation dose to as low as reasonably achievable. Dictated by Herman Desir MD @ 09/25/2022 3:04:03 AM (Electronically Signed)
[2022-09-25] MEDS: cefTRIAXone 1 GM in 0.9 % SODIUM CHLORIDE Mini-bag 100 ML IVPB (03:41)
[2022-09-25] MEDS: KETOROLAC 30 MG/ML inj IVP (04:23)
--- NOTE | 2022-09-25 07:22 | ED_ITS ---
HPI - General Adult General Chief complaint: Chest Pain Stated complaint: chest pain and has RSV Time Seen by Provider: 09/24/22 23:44 History of Present Illness HPI narrative: 47-year-old woman presenting to the emergency department with complaint of left- sided pleuritic chest pain. Complaining of left low pleuritic chest pain occurring after nebulization treatment this evening. Diagnosed about a week ago with RSV. Was seen yesterday in this department for shortness of breath, given dexamethasone and DuoNeb which apparently resulted in some improvement and then discharged with nebulizations, methylprednisolone and ketorolac. My understanding from initial conversation with Ms. Zamora that had also been given azithromycin. She is not describing a fever. 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 She is not measuring a fever. Concern also of intermittent tingling this that she is wondering if might be med related or due to lack of adequate oxygenation, tingling this to hands, feet, legs, sounds like anterior thighs, and residual yet around her lips. This is symmetrical in distribution and not associated with weakness. Underlying history of fibromyalgia. 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 More recently though has been relatively free of illness. Related Data Home Medications Medication Instructions Recorded Confirmed fluticasone furoate 200 1 inh inhalation Q24H 07/03/22 09/23/22 mcg-vilanterol 25 mcg/dose inhalation powder (Breo Ellipta) albuterol sulfate 90 mcg/actuation 2 puff inhalation Q6H PRN 08/01/22 09/23/22 aerosol inhaler dextroamphetamine-amphetamine ER 10 mg PO BID 08/01/22 09/23/22 10 mg 24hr capsule,extend release magnesium 250 mg tablet 250 mg PO QDAY 08/02/22 09/23/22 trazodone 100 mg tablet 100 mg PO QDAY sleep 08/02/22 09/23/22 Previous Rx's Medication Instructions Recorded ketorolac 10 mg tablet 10 mg PO Q6H PRN pain 5 days #20 07/03/22 tabs tramadol 50 mg tablet 50 mg PO Q6H PRN pain #10 tabs 07/03/22 acetaminophen 500 mg tablet 1,000 mg PO Q6H PRN Pain #0 tabs 08/23/22 oxycodone 5 mg tablet 5 mg PO Q4H PRN 4 OR GREATER ON 08/23/22 PAIN SCALE 14 days #20 tabs benzonatate 100 mg capsule 100 mg PO BID-TID PRN cough #20 09/22/22 caps albuterol sulfate 2.5 mg/3 mL 2.5 mg (3 mL) inhalation Q4-6H PRN 09/23/22 (0.083 %) solution for nebulization #75 mL ketorolac 10 mg tablet 10 mg PO TID 5 days #15 tabs 09/23/22 methylprednisolone 4 mg tablets in See Rx Instructions PO .COMPLEX 09/23/22 a dose pack (Medrol (Luis Manuel)) #21 ea Allergies Allergy/AdvReac Type Severity Reaction Status Date / Time bupropion Allergy Intermediate Diarrhea Verified 09/23/22 15:08 codeine Allergy Intermediate epigastric Verified 09/23/22 15:08 pain erythromycin base Allergy Intermediate stomach Verified 09/23/22 15:08 upset, diarrhea Review of Systems Status of ROS: Reports: 10 or more systems reviewed and unremarkable except as noted in History and below [facility] Medical History Anxiety and depression Asthma Asthma Lizy-Danlos syndrome Fibromyalgia H/O bronchopulmonary dysplasia History of blood transfusion (1994) History of vitamin D deficiency Mild persistent asthma Simple renal cyst (10/2020) Stage 1 chronic kidney disease (11/16/20) Surgical History H/O tubal ligation History of catheter-based closure of atrial septal defect (06/2006) History of hysterectomy for benign disease (2005) History of laparoscopic cholecystectomy (09/29/20) History of medial meniscus repair of left knee (08/04/13) S/P dilation and curettage (1994) Status post excision of lipoma (2011) Family History Maternal Grandmother Stroke Paternal Grandfather Diabetes Daughter Depression Social History Narrative: She recently moved to [place]. 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 She has a college education She exercises 5 days a week with walking in treadmill 2M She does not smoke She does not drink alcohol or use recreational drugs Smoking Status: Never smoker Do you use any of these nicotine containing products: None Second hand tobacco smoke exposure: No How often do you have a drink containing alcohol: monthly or less How many standard drinks containing alcohol do you have on a typical day: 1 or 2 How often do you have six or more drinks on one occasion: Never AUDIT-C Alcohol total score: 1 Non-prescribed substance use: denies use Caffeine: Yes (coffee 1 cup/day) Little interest or pleasure in doing things: not at all Feeling down, depressed, or hopeless: not at all Are you using contraception or practicing any form of control: Yes (hysterectomy) service: No Exam Narrative: Exam Narrative: Pleasant. Laryngitic. Sounds congested in the nasopharynx. Brow is often furrowed in apparent discomfort. Breathing relatively easily. Is not splinting. Oropharynx is moist. Cranial nerves 2-12 to be intact. Moving all extremities without difficulty. Strong and equal radial pulses bilaterally. Well-perfused extremities. Lower extremities are without edema. No apparent pain to palpation. Lungs with good air movement with crepitus throughout the posterior left lower lung field. No wheeze. Not really able to reproduce pain to palpation about the chest wall. Indication of area of pain consistent with placement of stethoscope and auscultation of crepitus. Abdomen is soft appears to be nontender. Const: Vital Signs, click to edit/add: Vital Signs - 24 hr 09/24/22 23:36 09/24/22 23:52 09/25/22 00:31 Temperature 98.0 F Pulse Rate Pulse Rate [Pulse Oximeter] 107 H 100 Respiratory Rate 18 16 Blood Pressure Blood Pressure [Le ft Upper Arm] 152/91 H 144/80 H Pulse Oximetry 95 95 96 Oxygen Delivery Me thod Room Air Room Air 09/24/22 23:52 09/25/22 00:00 09/25/22 00:01 Temperature Pulse Rate 104 H 97 87 Pulse Rate [Pulse Oximeter] Respiratory Rate Blood Pressure 146/87 H Blood Pressure [Le ft Upper Arm] Pulse Oximetry 94 96 94 Oxygen Delivery Me thod Room Air 09/25/22 00:02 09/25/22 01:00 09/25/22 01:02 Temperature Pulse Rate 89 75 66 Pulse Rate [Pulse Oximeter] Respiratory Rate Blood Pressure 137/80 Blood Pressure [Le ft Upper Arm] Pulse Oximetry 95 95 95 Oxygen Delivery Me thod Room Air 09/25/22 01:03 09/25/22 02:18 09/25/22 03:00 Temperature Pulse Rate 87 100 86 Pulse Rate [Pulse Oximeter] Respiratory Rate Blood Pressure Blood Pressure [Le ft Upper Arm] Pulse Oximetry 95 94 93 Oxygen Delivery Me thod 09/25/22 03:01 09/25/22 03:02 09/25/22 04:00 Temperature Pulse Rate 103 H 88 83 Pulse Rate [Pulse Oximeter] Respiratory Rate Blood Pressure 147/107 H Blood Pressure [Le ft Upper Arm] Pulse Oximetry 95 95 95 Oxygen Delivery Me thod 09/25/22 04:01 Temperature Pulse Rate 82 Pulse Rate [Pulse Oximeter] Respiratory Rate Blood Pressure 136/100 H Blood Pressure [Le ft Upper Arm] Pulse Oximetry 94 Oxygen Delivery Me thod Documenting provider has reviewed patient's vital signs: yes Course Vital Signs Vital signs: Initial Vital Signs Temperature 98.0 F 09/24/22 23:36 Temperature Source Temporal Artery Scan 09/24/22 23:36 Pulse Rate 107 H 09/24/22 23:36 Respiratory Rate 18 09/24/22 23:36 Blood Pressure 152/91 H 09/24/22 23:36 Blood Pressure Mean 111 09/24/22 23:36 Pulse Oximetry 95 09/24/22 23:36 Oxygen Delivery Method 09/24/22 23:36 Vital Signs Temperature 98.0 F 09/24/22 23:36 Pulse Rate 107 H 09/24/22 23:36 Respiratory Rate 18 09/24/22 23:36 Blood Pressure 152/91 H 09/24/22 23:36 Pulse Oximetry 95 09/24/22 23:36 Oxygen Delivery Method 09/24/22 23:36 Temperature 98.0 F 09/24/22 23:36 Pulse Rate 82 09/25/22 04:01 Respiratory Rate 16 09/24/22 23:52 Blood Pressure 136/100 H 09/25/22 04:01 Pulse Oximetry 94 09/25/22 04:01 Oxygen Delivery Method 09/25/22 01:02 Medical Decision Making MDM Narrative Medical decision making narrative: I think it would be prudent given history and to initiate a basic laboratory evaluation. Differential does include pulmonary embolus and pneumonia or pleuritis, pneumothorax. Will also be doing a chest x-ray. Chest x-ray reviewed by me and Radiology complicated by pectus excavatum. There are persistent fibrotic changes evidently at the right mid lung. I see nothing to correlate with physical exam. With labs showing a significant elevation in CRP and CBC, along with understandably elevated D-dimer, I do order a CT chest angio. By my read does confirm infiltrative process in the left low lower lobe of the lung. Radiology over-read concurs and notes no pulmonary embolus. At one point does have seconds long flash of chest discomfort and amplification of tingliness in areas as mentioned; this appears to be very distressing. Vitals remained stable. No indication of dysrhythmia/arrhythmia on monitoring. Ms. Zamora seemed to indicate at one point to be grateful have been believed/taken seriously. I order Rocephin given appearance of pneumonia and understanding that azithromy lopez had been taken. This however is corrected. Changing up outpatient to Augmentin and azithromycin from [facility]. Closer to departure is requesting pain medication. After discussion apparently had been thinking about ketorolac. I go ahead and order this. Is also requesting sleep aid, mentions Nicola. I think more prudent to treat illness which should hopefully precipitate better sleep. We did discuss potential benefit of side effect of opiate in treatment for pain but Ms. Zamora would like to defer that. Medical Records Medical records reviewed: Yes I reviewed the patient's medical records Lab Data Lab results reviewed: Yes I reviewed the patient's lab results Labs: Lab Results 09/25/22 09/25/22 09/25/22 Range/Units 00:05 00:05 00:05 WBC 15.85 H (4.50-11.00) K/uL RBC 4.19 (4.00-5.20) m/uL Hgb 12.9 (12.0-16.0) gm/dL Hct 37.9 (33.0-51.0) % MCV 91 (80-100) fL MCH 31 (26-34) pg MCHC 34 (32-36) gm/dL RDW Coeff of Bárbara 12.1 (11.5-15.5) % Plt Count 257 (140-440) K/uL Neut % (Auto) 85.1 H (42.0-72.0) % Lymph % (Auto) 8.4 L (20-44) % Barnwell % (Auto) 4.8 (0.0-11.0) % Eos % (Auto) 0.0 (0.0-7.0) % Baso % (Auto) 0.1 (0.0-3.0) % Neut # (Auto) 13.50 H (1.7-7.0) K/uL Lymph # (Auto) 1.30 (0.90-2.90) K/uL Barnwell # (Auto) 0.80 (0.00-0.90) K/UL Eos # (Auto) 0.00 (0.00-0.50) K/uL Baso # (Auto) 0.00 (0.00-0.30) K/uL D-Dimer Quant (PE/DVT) 1.36 H (0.00-0.50) ug/ml Sodium 137 (135-149) mmol/L Potassium 4.0 (3.6-5.1) mmol/L Chloride 104 (96-114) mmol/L Carbon Dioxide 27 (20-32) mmol/L BUN 18 (5-24) mg/dL Creatinine 0.5 (0.5-1.5) mg/dL Estimated GFR 117 ml/min Glucose 142 H (60-115) mg/dL Calcium 9.4 (8.4-10.6) mg/dL C-Reactive Protein 15.7 H (0.5-1.0) mg/dL NT-Pro-B Natriuret Pep 420 pg/mL ECG Data Attestation: I personally reviewed and interpreted this ECG as follows: (Sinus rhythm, PVC. Rate of 92) Discharge Plan Discharge Clinical Impression: Pneumonia, Pleuritic chest pain Patient Disposition: Home w/ Parent or Adult Condition: Stable Additional Instructions: Be sure to hydrate. Can take up to 1000 mg of acetaminophen per dose. Temporarily could take ibuprofen as well. Alternative to the ibuprofen could be up to 500 mg of naproxen 2 times daily. You can take the Augmentin and Azithromycin from [facility] yet this morning. Keep taking the methylprednisolone at this time. Return for increasing/uncontrolled chest pain, increasing persistent shortness of breath, escalating fever. Prescriptions: No Action dextroamphetamine-amphetamine 10 mg capsule,extended release 24hr 10 mg PO BID Label Comments: 6 months ago, takes as needed albuterol sulfate 90 mcg/actuation HFA aerosol inhaler 2 puff inhalation Q6H PRN magnesium 250 mg tablet 250 mg PO QDAY benzonatate 100 mg capsule 100 mg PO BID-TID PRN (Reason: cough) Qty: 20 0RF acetaminophen 500 mg Tablet 1,000 mg PO Q6H PRN (Reason: Pain) Qty: 0 0RF oxycodone 5 mg Tablet 5 mg PO Q4H PRN (Reason: 4 OR GREATER ON PAIN SCALE) 14 Days Qty: 20 0RF fluticasone furoate-vilanterol [Breo Ellipta] 200-25 mcg/dose blister with device 1 inh INHALATION Q24H Label Comments: INHALE 1 PUFF BY MOUTH EVERY DAY ketorolac 10 mg tablet 10 mg PO Q6H PRN (Reason: pain) 5 Days Qty: 20 0RF Label Comments: at least 2 weeks tramadol 50 mg tablet 50 mg PO Q6H PRN (Reason: pain) Qty: 10 0RF Label Comments: 2 weeks ago trazodone 100 mg tablet 100 mg PO QDAY ketorolac 10 mg tablet 10 mg PO TID 5 Days Qty: 15 0RF methylprednisolone [Medrol (Luis Manuel)] 4 mg tablets,dose pack See Rx Instructions .ROUTE .COMPLEX Qty: 21 0RF Rx Instructions: orally per package directions albuterol sulfate 2.5 mg /3 mL (0.083 %) solution for nebulization 2.5 mg inhalation Q4-6H PRNQty: 75 0RF Follow Up/Referrals: Keira Irvin MD [Primary Care Provider] - Stand Alone Forms: [facility] Info Instructions
--- NOTE | 2022-09-25 23:59 | CRLHL7_ITS ---
For Patients: As a result of the Cures Act, medical imaging exams and procedure reports are released immediately into your electronic medical record. You may view this report before your referring provider. If you have questions, please contact your health care provider. INDICATION: Fever. RSV. COMPARISON: Portable chest from 10/09/2021. CT of the abdomen and pelvis from 08/30/2022. FINDINGS: PA and lateral views of the chest were obtained. The apices of the lungs and the right lateral lung base are not included on today`s study. Again seen is a moderate pectus excavatum deformity. There is loss of the right heart border which is probably related to the pectus deformity. There continues to be mild ground-glass interstitial density in the right infrahilar lung consistent with pulmonary fibrosis seen in this region on the previous CT. The rest of the chest remains clear. The heart remains normal in size. Again seen is the ASD closure device. The mediastinum is normal in appearance. The osseous structures are normal in appearance for the patient`s age. IMPRESSION: No active disease seen in the chest. Again seen is the moderate pectus excavatum deformity. Stable mild ground-glass interstitial fibrosis in the right infrahilar lung. Dictated by Hebert Choudhury MD @ 09/25/2022 12:44:44 AM (Electronically Signed)
== END 2022-09-25 04:39 | disposition home or self-care (01) ==
PROVIDERS: Emergency Provider Family Medicine; PCP Family Medicine
DX: J18.9 Pneumonia, unspecified organism (principal); R07.89 Other chest pain
CPT/HCPCS: 36415; 71046; 71260; 80048; 83880; 85025; 85379; 86140; 94761; 96365; 96375; 99284; 99285; J0696; J1885; J7030; Q9967

== ENCOUNTER 2022-09-26 04:22 | Emergency (ER) | payer OTHER, SELFPAY ==
[2022-09-26 04:33] VITALS: BP 160/85; PULSE 90; RESP 18; TEMP 36.8; O2SAT 99; BMI 23.6
[2022-09-26] MEDS: IPRAT-ALBUT 0.5-2.5 MG/3 ML NEB 1 NEB IH (05:11)
--- NOTE | 2022-09-26 05:11 | ED.GENADULT ---
HPI - General Adult General Date Seen: 09/26/22 Chief complaint: Shortness of Breath/Dyspnea Stated complaint: pneumonia is getting worse/hard time breathing Time Seen by Provider: 09/26/22 04:33 Source: patient and family Mode of arrival: ambulatory Limitations: no limitations History of Present Illness HPI narrative: Patient is a 47-year-old female with her 3rd visit here in the past four days. She was diagnosed with RSV and a left lower lobe pneumonia. She is currently taking Augmentin, a Medrol Dosepak, and albuterol. She has taken a albuterol in the past 24 hours because she believes that it made her worse. She normally takes trazodone for sleep but is not able to sleep since starting the steroid and the nebs. She comes in tonight because she feels that she is gasping for air. Her oxygen saturation is in the upper 90s. She has had no fevers or chills. She is not coughing anything up. She states that she is not eating or drinking because she can not do the stairs at home. Her is with her and attentive however. No vomiting. His a history anxiety, mild persistent asthma, prematurity with bronchopulmonary dysplasia. She describes numbness and tingling in her hands, feet, around her mouth. Related Data Home Medications Medication Instructions Recorded Confirmed fluticasone furoate 200 1 inh inhalation Q24H 07/03/22 09/26/22 mcg-vilanterol 25 mcg/dose inhalation powder (Breo Ellipta) albuterol sulfate 90 mcg/actuation 2 puff inhalation Q6H PRN 08/01/22 09/26/22 aerosol inhaler dextroamphetamine-amphetamine ER 10 mg PO BID 08/01/22 09/26/22 10 mg 24hr capsule,extend release magnesium 250 mg tablet 250 mg PO QDAY 08/02/22 09/26/22 trazodone 100 mg tablet 100 mg PO QDAY sleep 08/02/22 09/26/22 Previous Rx's Medication Instructions Recorded ketorolac 10 mg tablet 10 mg PO Q6H PRN pain 5 days #20 07/03/22 tabs acetaminophen 500 mg tablet 1,000 mg PO Q6H PRN Pain #0 tabs 08/23/22 albuterol sulfate 2.5 mg/3 mL 2.5 mg (3 mL) inhalation Q4-6H PRN 09/23/22 (0.083 %) solution for nebulization #75 mL ketorolac 10 mg tablet 10 mg PO TID 5 days #15 tabs 09/23/22 methylprednisolone 4 mg tablets in See Rx Instructions PO .COMPLEX 09/23/22 a dose pack (Medrol (Luis Manuel)) #21 ea ipratropium 0.5 mg-albuterol 3 mg 3 ml inhalation Q6H PRN #90 mL 09/26/22 (2.5 mg base)/3 mL nebulization soln Allergies Allergy/AdvReac Type Severity Reaction Status Date / Time bupropion Allergy Intermediate Diarrhea Verified 09/26/22 04:44 codeine Allergy Intermediate epigastric Verified 09/26/22 04:44 pain erythromycin base Allergy Intermediate stomach Verified 09/26/22 04:44 upset, diarrhea Review of Systems Narrative: Review of systems is outlined above otherwise noted to be negative. She has had a recent senior reservations agent procedure due to chronic pelvic pain. [facility] Medical History Anxiety and depression Asthma Asthma Lizy-Danlos syndrome Fibromyalgia H/O bronchopulmonary dysplasia History of blood transfusion (1994) History of vitamin D deficiency Mild persistent asthma Simple renal cyst (10/2020) Stage 1 chronic kidney disease (11/16/20) Surgical History H/O tubal ligation History of catheter-based closure of atrial septal defect (06/2006) History of hysterectomy for benign disease (2005) History of laparoscopic cholecystectomy (09/29/20) History of medial meniscus repair of left knee (08/04/13) S/P dilation and curettage (1994) Status post excision of lipoma (2011) Family History Maternal Grandmother Stroke Paternal Grandfather Diabetes Daughter Depression Social History Narrative: She recently moved to [place]. 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 She has a college education She exercises 5 days a week with walking in treadmill 2M She does not smoke She does not drink alcohol or use recreational drugs Smoking Status: Never smoker Do you use any of these nicotine containing products: None Second hand tobacco smoke exposure: No How often do you have a drink containing alcohol: monthly or less How often do you have six or more drinks on one occasion: Never AUDIT-C Alcohol total score: 1 Non-prescribed substance use: denies use Caffeine: Yes (coffee 1 cup/day) Little interest or pleasure in doing things: not at all Feeling down, depressed, or hopeless: not at all Are you using contraception or practicing any form of control: Yes (hysterectomy) service: No Exam Narrative: Exam Narrative: Vitals noted. Afebrile. Oxygen saturation 99% on room air. HEENT: Conjunctiva clear. Posterior pharynx is clear without erythema or exudate. Neck is supple without adenopathy, thyromegaly. Lungs: She has some rales at the left base with expiratory wheezes. Good air movement. No hypoxia. Heart: Regular rate and rhythm without murmur. Abdomen: Soft and nontender. No guarding, rigidity, rebound. Bowel sounds are normal. No palpable masses. Extremities: No cyanosis or edema. Good distal pulses. Skin: No abnormalities noted of the exposed skin. Neurologic: Awake, alert, fully oriented. Neurologic exam is nonfocal. She is anxious. She has some intermittent large amplitude movements that appear to be voluntary. Normal motor exam. Const: Vital Signs, click to edit/add: Vital Signs - 24 hr 09/26/22 04:33 09/26/22 05:17 09/26/22 05:17 Temperature 98.2 F Pulse Rate 62 Pulse Rate [Right Pulse Oximeter] 90 Respiratory Rate 18 18 Blood Pressure 141/90 H Blood Pressure [Ri ght Upper Arm] 160/85 H Pulse Oximetry 99 97 100 Oxygen Delivery Me thod Room Air 09/26/22 05:31 09/26/22 06:01 09/26/22 06:31 Temperature Pulse Rate 85 84 Pulse Rate [Right Pulse Oximeter] Respiratory Rate Blood Pressure 144/78 H 139/88 145/82 H Blood Pressure [Ri ght Upper Arm] Pulse Oximetry 92 93 Oxygen Delivery Me thod Course Course Hospital Course: Patient seen and examined. Clearly she is frustrated that her infection is not improving more rapidly. Think she is suffering some side effects from her nebs and steroids and is sleep deprived. She says she feels like she is going crazy and we discussed that can also be a side effect of steroid. She is not hypoxic and is in no respiratory distress. She would like to be admitted to the hospital that I have no reason to keep her. She is not severely dehydrated but would benefit from some IV fluids. He would benefit from some good sleep. She is given a DuoNeb and IV is started and normal saline is infusing. We will give her lorazepam 1 mg IV. I acknowledged her frustration and empathized with her illness and offered to treat her symptoms. We discussed that these infections can be slow to resolve. We discussed indications for admission to the hospital and the fact that beds are scarce here and elsewhere at this time. Her is agreeable to this treatment plan and seems reasonable. Reevaluation(s) Reevaluation #1: Patient felt dramatically better after her fluids and DuoNeb. Her breathing is easier. She was able to rest comfortably with the Ativan. Vital Signs Vital signs: Initial Vital Signs Temperature 98.2 F 09/26/22 04:33 Temperature Source Temporal Artery Scan 09/26/22 04:33 Pulse Rate 90 09/26/22 04:33 Respiratory Rate 18 09/26/22 04:33 Respiratory Effort Spontaneous 09/26/22 04:33 Respiratory Depth Normal 09/26/22 04:33 Respiratory Pattern 09/26/22 04:33 Blood Pressure 160/85 H 09/26/22 04:33 Blood Pressure Mean 110 09/26/22 04:33 Blood Pressure Position Sitting 09/26/22 04:33 Pulse Oximetry 99 09/26/22 04:33 Oxygen Delivery Method 09/26/22 04:33 Vital Signs Temperature 98.2 F 09/26/22 04:33 Pulse Rate 90 09/26/22 04:33 Respiratory Rate 18 09/26/22 04:33 Blood Pressure 160/85 H 09/26/22 04:33 Pulse Oximetry 99 09/26/22 04:33 Oxygen Delivery Method 09/26/22 04:33 Temperature 98.2 F 09/26/22 04:33 Pulse Rate 84 09/26/22 06:01 Respiratory Rate 18 09/26/22 05:17 Blood Pressure 145/82 H 09/26/22 06:31 Pulse Oximetry 93 09/26/22 06:01 Oxygen Delivery Method 09/26/22 04:33 Discharge Plan Discharge Clinical Impression: Community acquired pneumonia, RSV infection Patient Disposition: Home, Self-Care Condition: Improved Additional Instructions: Rest, push fluids, complete your Augmentin. You can discontinue the methylprednisolone. Use DuoNebs every 4 hours as needed to help with wheezing. Follow-up in the clinic if her symptoms are not improving over the next 3-5 days. Prescriptions: New ipratropium-albuterol 0.5 mg-3 mg(2.5 mg base)/3 mL solution for nebulization 3 ml inhalation Q6H PRNQty: 90 0RF No Action dextroamphetamine-amphetamine 10 mg capsule,extended release 24hr 10 mg PO BID Label Comments: 6 months ago, takes as needed albuterol sulfate 90 mcg/actuation HFA aerosol inhaler 2 puff inhalation Q6H PRN magnesium 250 mg tablet 250 mg PO QDAY acetaminophen 500 mg Tablet 1,000 mg PO Q6H PRN (Reason: Pain) Qty: 0 0RF fluticasone furoate-vilanterol [Breo Ellipta] 200-25 mcg/dose blister with device 1 inh INHALATION Q24H Label Comments: INHALE 1 PUFF BY MOUTH EVERY DAY ketorolac 10 mg tablet 10 mg PO Q6H PRN (Reason: pain) 5 Days Qty: 20 0RF Label Comments: at least 2 weeks trazodone 100 mg tablet 100 mg PO QDAY ketorolac 10 mg tablet 10 mg PO TID 5 Days Qty: 15 0RF methylprednisolone [Medrol (Luis Manuel)] 4 mg tablets,dose pack See Rx Instructions .ROUTE .COMPLEX Qty: 21 0RF Rx Instructions: orally per package directions albuterol sulfate 2.5 mg /3 mL (0.083 %) solution for nebulization 2.5 mg inhalation Q4-6H PRNQty: 75 0RF Follow Up/Referrals: Keira Irvin MD [Primary Care Provider] - Stand Alone Forms: [employer] Info Instructions
[2022-09-26 05:17] VITALS: BP 141/90; PULSE 62; RESP 18; O2SAT 100; O2SAT 97
[2022-09-26] MEDS: LORazepam 2 MG/ML inj 1 MG IVP (05:18)
[2022-09-26] MEDS: 0.9 % SODIUM CHLORIDE 1000 ml 1,000 ML IV (05:18)
[2022-09-26 05:31] VITALS: BP 144/78; PULSE 85; O2SAT 92
[2022-09-26 06:01] VITALS: BP 139/88; PULSE 84; O2SAT 93
[2022-09-26 06:31] VITALS: BP 145/82
== END 2022-09-26 07:30 | disposition home or self-care (01) ==
PROVIDERS: Emergency Provider Family Medicine; PCP Family Medicine
DX: J12.1 Respiratory syncytial virus pneumonia (principal)
CPT/HCPCS: 94640; 94761; 96374; 99283; 99284; J2060; J7030

== ENCOUNTER 2022-09-29 18:05 | Emergency (ER) | payer OTHER, SELFPAY ==
[2022-09-29] VITALS (8 sets, daily range): BP systolic 144–166; BP diastolic 84–114; PULSE 99–116; RESP 12–20; TEMP 36.3; O2SAT 92–98; BMI 23.2
--- NOTE | 2022-09-29 18:45 | CRLHL7_ITS ---
For Patients: As a result of the Century Cures Act, medical imaging exams and procedure reports are released immediately into your electronic medical record. You may view this report before your referring provider. If you have questions, please contact your health care provider. Indication: Chest pain. Comparison: 09/25/2022. FINDINGS: PA and lateral views of the chest were obtained. The cardiac silhouette and pulmonary vasculature are within normal limits. There is a stable ASD closure device. The lungs are clear bilaterally. There is a pectus excavatum deformity. IMPRESSION: Stable chest x-ray. No evidence of acute pulmonary disease. Dictated by Rohit Ascencio MD @ 09/29/2022 7:30:17 PM (Electronically Signed)
--- NOTE | 2022-09-29 18:46 | ED_ITS ---
HPI - General Adult General Chief complaint: Chest Pain Stated complaint: chest pain Time Seen by Provider: 09/29/22 18:08 Source: patient Limitations: no limitations History of Present Illness HPI narrative: 47-year-old female presenting to the ER for the 4th time in 6 days complaining of chest pain. Patient was diagnosed with RSV and subsequently was diagnosed with pneumonia. She states that ever since she got sick she has been expe riencing worsening which she calls neurologic symptoms with shaking and numbness and tingling of multiple body parts. She states that she went to [facility] ER last night which would be her 5th ER visit in 6 days, and was worked up for these symptoms. She states that they did head MRI along with some other testing including an EKG and everything came out normal. She states that they told her they would call her on Saturday to schedule a neurologic follow-up. However this afternoon she started experiencing left-sided chest pain. She describes it as sharp and non relenting. She is also concerned that for the last 3 days she has not been coughing. She states that she feels like she has to cough but nothing happens. She is also concerned because her mouth feels tight. She has decreased appetite. No fevers or chills. No nausea or vomiting. She is requesting have her heart and chest evaluated. Patient does have a history of chronic pelvic pain, fibromyalgia, anxiety, depression, either Danlos syndrome, asthma Related Data Home Medications Medication Instructions Recorded Confirmed fluticasone furoate 200 1 inh inhalation Q24H 07/03/22 09/26/22 mcg-vilanterol 25 mcg/dose inhalation powder (Breo Ellipta) albuterol sulfate 90 mcg/actuation 2 puff inhalation Q6H PRN 08/01/22 09/26/22 aerosol inhaler dextroamphetamine-amphetamine ER 10 mg PO BID 08/01/22 09/26/22 10 mg 24hr capsule,extend release magnesium 250 mg tablet 250 mg PO QDAY 08/02/22 09/26/22 trazodone 100 mg tablet 100 mg PO QDAY sleep 08/02/22 09/26/22 Previous Rx's Medication Instructions Recorded ketorolac 10 mg tablet 10 mg PO Q6H PRN pain 5 days #20 07/03/22 tabs acetaminophen 500 mg tablet 1,000 mg PO Q6H PRN Pain #0 tabs 08/23/22 albuterol sulfate 2.5 mg/3 mL 2.5 mg (3 mL) inhalation Q4-6H PRN 09/23/22 (0.083 %) solution for nebulization #75 mL ketorolac 10 mg tablet 10 mg PO TID 5 days #15 tabs 09/23/22 methylprednisolone 4 mg tablets in See Rx Instructions PO .COMPLEX 09/23/22 a dose pack (Medrol (Luis Manuel)) #21 ea ipratropium 0.5 mg-albuterol 3 mg 3 ml inhalation Q6H PRN #90 mL 09/26/22 (2.5 mg base)/3 mL nebulization soln Allergies Allergy/AdvReac Type Severity Reaction Status Date / Time bupropion Allergy Intermediate Diarrhea Verified 09/26/22 04:44 codeine Allergy Intermediate epigastric Verified 09/26/22 04:44 pain erythromycin base Allergy Intermediate stomach Verified 09/26/22 04:44 upset, diarrhea Review of Systems Status of ROS: Reports: 10 or more systems reviewed and unremarkable except as noted in History and below [facility] Medical History Anxiety and depression Asthma Asthma Lizy-Danlos syndrome Fibromyalgia H/O bronchopulmonary dysplasia History of blood transfusion (1994) History of vitamin D deficiency Mild persistent asthma Simple renal cyst (10/2020) Stage 1 chronic kidney disease (11/16/20) Surgical History H/O tubal ligation History of catheter-based closure of atrial septal defect (06/2006) History of hysterectomy for benign disease (2005) History of laparoscopic cholecystectomy (09/29/20) History of medial meniscus repair of left knee (08/04/13) S/P dilation and curettage (1994) Status post excision of lipoma (2011) Family History Maternal Grandmother Stroke Paternal Grandfather Diabetes Daughter Depression Social History Narrative: She recently moved to [place]. 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 She has a college education She exercises 5 days a week with walking in treadmill 2M She does not smoke She does not drink alcohol or use recreational drugs Smoking Status: Never smoker Do you use any of these nicotine containing products: None Second hand tobacco smoke exposure: No How often do you have a drink containing alcohol: monthly or less How often do you have six or more drinks on one occasion: Never AUDIT-C Alcohol total score: 1 Non-prescribed substance use: denies use Caffeine: Yes (coffee 1 cup/day) Little interest or pleasure in doing things: not at all Feeling down, depressed, or hopeless: not at all Are you using contraception or practicing any form of control: Yes (hysterectomy) service: No Exam Narrative: Exam Narrative: Well-nourished well-developed patient. GCS is 15. Alert and oriented x3. Answers questions appropriately. Patient speaks in full sentences without needing to catch her breath. She does not appear ill or toxic. Patient's head bobs back and forth continuously and she nonstop moves/jerks the right upper ext remity nonstop, however, when I ask her to follow commands although movement stops until whatever command has been accomplished. For example I asked her to stick out her tongue her head stops moving and her arm stops moving and she sticks out her tongue and as soon as her tongue is back in the movement starts again. HEENT: Normocephalic atraumatic. Pupils are equally round reactive to light. Extraocular muscles are intact. Conjunctivae are moist without any icterus noted. Moist mucous membranes. Posterior pharynx is normal. Neck is soft without any lymphadenopathy or thyromegaly. No masses are appreciated. Cardiovascular: Heart is regular rate and rhythm S1 and S2 are present without any murmurs. Lungs: Clear to auscultation bilaterally no wheezes rhonchi or rales are appreciated. Patient takes deep breaths without any discomfort. Abdomen: Soft and nontender nondistended with normal bowel sounds. No guarding or rebound. No masses or organomegaly appreciated. Extremities: Bilateral lower extremities are without edema. Normal DP and PT pulses. Skin: Well perfused without any obvious rashes. Strength is 5/5 of the upper and lower extremities- her rocking motions stop When I am testing her strength. Reflexes are 2+ and symmetric at the knees. Cranial nerves 3-12 are normal. Nimazo-mr-vpmi is normal. Asoq-cy-ftal is normal. There is no nystagmus either horizontally or vertically. Her speech is not slurred or pressured. She speaks with normal tone and speech. There is no word-finding difficulty, she is not difficult to understand. Const: Vital Signs, click to edit/add: Vital Signs - 24 hr 09/29/22 18:19 Temperature 97.4 F L Pulse Rate [Right Pulse Oximeter] 116 H Respiratory Rate 20 Blood Pressure [Le ft Upper Arm] 166/96 H Pulse Oximetry 98 Oxygen Delivery Me thod Room Air Course Course Hospital Course: EKG, read by me, shows normal sinus rhythm with PVCs, pulse 95. Pulse was 102 on the EKG done at [facility] yesterday. Labs were drawn and patient was sent for a chest x-ray, which read by me, was normal. While waiting for lab work did review her workup from [facility]: Patient had full lab work done which was unremarkable. At that time she was found to have the same irregular movements of the right extremity that was distractible there as well this was thought not to be consistent with seizure activity mild clonus or tremor and no further workup was recommended. She did have a brain and cervical spine MRI without significant abnormality and next steps will include EMG, blood tests. Of note patient has a greater than 100 lb weight loss in 1 year due to restrictive diet and nutritional deficiencies are being worked up also. It appears that aside from going to the [facility] ER yesterday patient was also seen in the [place] ER 2 days ago. Patient had a head CT done 09/25/2022, CTA head neck angiogram on 09/27/2022. Followed by the MRIs done on 09/28-nothing was found to explain her neurologic symptoms. Labs returned showing elevated white count just above 14,000. Yesterday at the [facility] ER, her white cell count was 11.8. However, today her neutrophil count is lower than yesterday. D-dimer is elevated at just above 1, therefore we did go ahead and proceed with a chest CT. This was negative for PE and showed almost complete resolution of previous pneumonia. Serial troponins x2 unremarkable. Vital Signs Vital signs: Initial Vital Signs Temperature 97.4 F L 09/29/22 18:19 Temperature Source Temporal Artery Scan 09/29/22 18:19 Pulse Rate 116 H 09/29/22 18:19 Respiratory Rate 20 09/29/22 18:19 Blood Pressure 166/96 H 09/29/22 18:19 Blood Pressure Mean 119 09/29/22 18:19 Blood Pressure Position Sitting 09/29/22 18:19 Pulse Oximetry 98 09/29/22 18:19 Oxygen Delivery Method 09/29/22 18:19 Vital Signs Temperature 97.4 F L 09/29/22 18:19 Pulse Rate 116 H 09/29/22 18:19 Respiratory Rate 20 09/29/22 18:19 Blood Pressure 166/96 H 09/29/22 18:19 Pulse Oximetry 98 09/29/22 18:19 Oxygen Delivery Method 09/29/22 18:19 Temperature 97.4 F L 09/29/22 18:19 Pulse Rate 116 H 09/29/22 18:19 Respiratory Rate 20 09/29/22 18:19 Blood Pressure 166/96 H 09/29/22 18:19 Pulse Oximetry 98 09/29/22 18:19 Oxygen Delivery Method 09/29/22 18:19 Medical Decision Making MDM Narrative Medical decision making narrative: 47-year-old female with chest pain unclear etiology. I do not see any evidence of pneumonia, PE or coronary artery disease at this time. There is no evidence of pneumothorax or other lung pathology. We discussed symptomatic treatment and follow-up which is already scheduled. Progressing neurologic symptoms including full body paresthesias yeah and nonspecific recurrent movements of the right upper extremity which are distractible. Follow-up with neurology as scheduled. Lab Data Labs: Lab Results 09/29/22 09/29/22 09/29/22 Range/Units 18:55 18:55 18:55 WBC 14.27 H (4.50-11.00) K/uL RBC 5.10 (4.00-5.20) m/uL Hgb 15.6 (12.0-16.0) gm/dL Hct 46.1 (33.0-51.0) % MCV 90 (80-100) fL MCH 31 (26-34) pg MCHC 34 (32-36) gm/dL RDW Coeff of Bárbara 11.8 (11.5-15.5) % Plt Count 441 H (140-440) K/uL Neut % (Auto) 65.8 (42.0-72.0) % Lymph % (Auto) 24.2 (20-44) % [place] % (Auto) 5.7 (0.0-11.0) % Eos % (Auto) 2.3 (0.0-7.0) % Baso % (Auto) 0.1 (0.0-3.0) % Neut # (Auto) 9.40 H (1.7-7.0) K/uL Lymph # (Auto) 3.50 H (0.90-2.90) K/uL [place] # (Auto) 0.80 (0.00-0.90) K/UL Eos # (Auto) 0.30 (0.00-0.50) K/uL Baso # (Auto) 0.00 (0.00-0.30) K/uL D-Dimer Quant (PE/DVT) (0.00-0.50) ug/ml Sodium 139 (135-149) mmol/L Potassium 4.1 (3.6-5.1) mmol/L Chloride 105 (96-114) mmol/L Carbon Dioxide 28 (20-32) mmol/L BUN 15 (5-24) mg/dL Creatinine 0.7 (0.5-1.5) mg/dL Estimated Creat Clear 101.30 Estimated GFR 108 ml/min Glucose 111 (60-115) mg/dL Calcium 9.4 (8.4-10.6) mg/dL C-Reactive Protein 1.0 (0.5-1.0) mg/dL POC Troponin I 0.00 L (0.01-0.04) ng/ml 09/29/22 Range/Units 18:55 WBC (4.50-11.00) K/uL RBC (4.00-5.20) m/uL Hgb (12.0-16.0) gm/dL Hct (33.0-51.0) % MCV (80-100) fL MCH (26-34) pg MCHC (32-36) gm/dL RDW Coeff of Bárbara (11.5-15.5) % Plt Count (140-440) K/uL Neut % (Auto) (42.0-72.0) % Lymph % (Auto) (20-44) % [place] % (Auto) (0.0-11.0) % Eos % (Auto) (0.0-7.0) % Baso % (Auto) (0.0-3.0) % Neut # (Auto) (1.7-7.0) K/uL Lymph # (Auto) (0.90-2.90) K/uL [place] # (Auto) (0.00-0.90) K/UL Eos # (Auto) (0.00-0.50) K/uL Baso # (Auto) (0.00-0.30) K/uL D-Dimer Quant (PE/DVT) 1.03 H (0.00-0.50) ug/ml Sodium (135-149) mmol/L Potassium (3.6-5.1) mmol/L Chloride (96-114) mmol/L Carbon Dioxide (20-32) mmol/L BUN (5-24) mg/dL Creatinine (0.5-1.5) mg/dL Estimated Creat Clear Estimated GFR ml/min Glucose (60-115) mg/dL Calcium (8.4-10.6) mg/dL C-Reactive Protein (0.5-1.0) mg/dL POC Troponin I (0.01-0.04) ng/ml Imaging Data Chest x-ray: Attestation: I have reviewed the pertinent imaging results. Radiologist's impression: Comparison: 09/25/2022. FINDINGS: PA and lateral views of the chest were obtained. The cardiac silhouette and pulmonary vasculature are within normal limits. There is a stable ASD closure device. The lungs are clear bilaterally. There is a pectus excavatum deformity. IMPRESSION: Stable chest x-ray. CT scan - chest: Attestation: I have reviewed the pertinent imaging results. Radiologist's impression: CT pulmonary angiogram from 09/25/2022.. TECHNIQUE: CT examination of the chest was performed with the uneventful intravenous administration of 95 cc of Isovue 370 while 1.5 mm thick axial sections were obtained from above the apices of the lungs through the mid renal level. Please note that all CT scans at this facility use dose modulation, iterative reconstruction, and/or weight-based dosing when appropriate to reduce radiation dose to as low as reasonably achievable. FINDINGS: : There is no sign of pulmonary embolism, with normal enhancement and branching of the pulmonary arteries. The previously seen moderately dense infiltrate filling the superior segments of the left lower lobe has largely resolved, with mild residual patchy interstitial density. There continues to be mild diffuse ground-glass pulmonary fibrosis with sparing of the lateral aspect of the right middle lobe and of the apices. There is no sign of mediastinal or hilar mass or adenopathy. The heart is normal in appearance for the patient`s age. There is age appropriate appearance of the thoracic aorta and ascending great ve ssels. There is no sign of supraclavicular or axillary mass or adenopathy. The visualized superior liver, spleen, pancreas, kidneys, and adrenals are normal in appearance. Clips are again seen in the gall bladder fossa from cholecystectomy. There is no sign of biliary ductal dilatation. Again seen is a mild pectus excavatum deformity. The osseous structures are otherwise normal in appearance for the patient`s age. IMPRESSION: No sign of pulmonary embolism. Near complete resolution of previously seen pneumonia involving the superior segment of the left lower lobe. Stable mild ground-glass pulmonary fibrosis with sparing of the lateral right middle lobe and of the apices. Again seen are changes of cholecystectomy. ECG Data Attestation: I personally reviewed and interpreted this ECG as follows: Discharge Plan Discharge Clinical Impression: Chest pain Patient Disposition: Home, Self-Care Condition: Stable Additional Instructions: There was no evidence of heart disease, blood clots, infection or inflammation today. Your pneumonia appears to be almost completely resolved. Follow-up with neurology as planned. Prescriptions: No Action dextroamphetamine-amphetamine 10 mg capsule,extended release 24hr 10 mg PO BID Label Comments: 6 months ago, takes as needed albuterol sulfate 90 mcg/actuation HFA aerosol inhaler 2 puff inhalation Q6H PRN magnesium 250 mg tablet 250 mg PO QDAY acetaminophen 500 mg Tablet 1,000 mg PO Q6H PRN (Reason: Pain) Qty: 0 0RF fluticasone furoate-vilanterol [Breo Ellipta] 200-25 mcg/dose blister with device 1 inh INHALATION Q24H Label Comments: INHALE 1 PUFF BY MOUTH EVERY DAY ketorolac 10 mg tablet 10 mg PO Q6H PRN (Reason: pain) 5 Days Qty: 20 0RF Label Comments: at least 2 weeks trazodone 100 mg tablet 100 mg PO QDAY ketorolac 10 mg tablet 10 mg PO TID 5 Days Qty: 15 0RF methylprednisolone [Medrol (Luis Manuel)] 4 mg tablets,dose pack See Rx Instructions .ROUTE .COMPLEX Qty: 21 0RF Rx Instructions: orally per package directions albuterol sulfate 2.5 mg /3 mL (0.083 %) solution for nebulization 2.5 mg inhalation Q4-6H PRNQty: 75 0RF ipratropium-albuterol 0.5 mg-3 mg(2.5 mg base)/3 mL solution for nebulization 3 ml inhalation Q6H PRNQty: 90 0RF Follow Up/Referrals: Keira Irvin MD [Primary Care Provider] - Stand Alone Forms: [employer] Info Instructions
[2022-09-29 19:04] LABS: Basophils Percent Auto 0.1 % (0.0-3.0); Eosinophils Percent Auto 2.3 % (0.0-7.0); Hematocrit 46.1 % (33.0-51.0); Hemoglobin* 15.6 gm/dL (12.0-16.0); Immature Granulocytes Pct Auto 1.9 %; Lymphocytes Percent Auto 24.2 % (20-44); Mean Corpuscular HGB Conc 34 gm/dL (32-36); Mean Corpuscular Hemoglobin 31 pg (26-34); Mean Corpuscular Volume 90 fL (80-100); Monocytes Percent Auto 5.7 % (0.0-11.0); Neutrophils Percent Auto 65.8 % (42.0-72.0); Platelet Count* 441 K/uL (140-440); RDW Coefficient of Variation % 11.8 % (11.5-15.5); White Blood Count* 14.27 K/uL (4.50-11.00)
[2022-09-29 19:06] LABS: Slide Review Reflex No
[2022-09-29 19:14] LABS: Chloride* 105 mmol/L (96-114); Potassium* 4.1 mmol/L (3.6-5.1); Sodium* 139 mmol/L (135-149)
[2022-09-29 19:17] LABS: Blood Urea Nitrogen* 15 mg/dL (5-24); Carbon Dioxide* 28 mmol/L (20-32); Creatinine* 0.7 mg/dL (0.5-1.5); Estimated Glomerular Filt Rate 108 ml/min; Glucose* 111 mg/dL (60-115)
[2022-09-29 19:18] LABS: Calcium* 9.4 mg/dL (8.4-10.6)
[2022-09-29 19:37] LABS: D Dimer Quantitative* 1.03 ug/ml (0.00-0.50)
--- NOTE | 2022-09-29 19:56 | CRLHL7_ITS ---
For Patients: As a result of the Century Cures Act, medical imaging exams and procedure reports are released immediately into your electronic medical record. You may view this report before your referring provider. If you have questions, please contact your health care provider. INDICATION: Shortness of breath. Elevated D-dimer. COMPARISON: CT pulmonary angiogram from 09/25/2022.. TECHNIQUE: CT examination of the chest was performed with the uneventful intravenous administration of 95 cc of Isovue 370 while 1.5 mm thick axial sections were obtained from above the apices of the lungs through the mid renal level. Please note that all CT scans at this facility use dose modulation, iterative reconstruction, and/or weight-based dosing when appropriate to reduce radiation dose to as low as reasonably achievable. FINDINGS: : There is no sign of pulmonary embolism, with normal enhancement and branching of the pulmonary arteries. The previously seen moderately dense infiltrate filling the superior segments of the left lower lobe has largely resolved, with mild residual patchy interstitial density. There continues to be mild diffuse ground-glass pulmonary fibrosis with sparing of the lateral aspect of the right middle lobe and of the apices. There is no sign of mediastinal or hilar mass or adenopathy. The heart is normal in appearance for the patient`s age. There is age appropriate appearance of the thoracic aorta and ascending great vessels. There is no sign of supraclavicular or axillary mass or adenopathy. The visualized superior liver, spleen, pancreas, kidneys, and adrenals are normal in appearance. Clips are again seen in the gall bladder fossa from cholecystectomy. There is no sign of biliary ductal dilatation. Again seen is a mild pectus excavatum deformity. The osseous structures are otherwise normal in appearance for the patient`s age. IMPRESSION: No sign of pulmonary embolism. Near complete resolution of previously seen pneumonia involving the superior segment of the left lower lobe. Stable mild ground-glass pulmonary fibrosis with sparing of the lateral right middle lobe and of the apices. Again seen are changes of cholecystectomy. Please note that all CT scans at this facility use dose modulation, iterative reconstruction, and/or weight-based dosing when appropriate to reduce radiation dose to as low as reasonably achievable. Dictated by Hebert Choudhury MD @ 09/29/2022 9:15:33 PM (Electronically Signed)
[2022-09-29 22:17] LABS: Troponin, Point-of-Care* 0.01 ng/ml (0.01-0.04)
== END 2022-09-29 21:20 | disposition home or self-care (01) ==
PROVIDERS: Emergency Provider Family Medicine; PCP Family Medicine
DX: R07.89 Other chest pain (principal)
CPT/HCPCS: 36415; 71046; 71260; 80048; 84484; 85025; 85379; 86140; 93005; 99285; Q9967

== ENCOUNTER 2023-12-31 14:05 | Outpatient (CLI) | payer OTHER, SELFPAY ==
--- OUTSIDE RECORDS SUMMARY | 2023-12-31 14:10 | XMS_ITS | Encounter Summary ---
Author Name Unknown Organization [facility] Address [address] [place] [id number] Care Team Providers Care Hospice Nurse Name Role Phone Yung Madrigal MD Unavailable Unavailable Winston Villatoro OD Unavailable [phone] Denise Woodson Ra, APRN [employer] Unavailable + [phone] Denise Woodson Ra, APRN [employer] Primary Care Provid er Encounter Details Date Type Department Care Team (Late st Contact Info) Description 01/10/2023 MyC [facility]ice [facility] [address] [place] [address] Arianna Lo Social History Tobacco Use Types Packs/Day Years Used Date Smoking Tobacco: Never Smokeless Tobacco: Never Alcohol Use Standard Drinks/Week Comments Not Currently 0 (1 standard drink = 0.6 oz pur e alcohol) minimal PHQ-2 Answer Date Recorded PHQ-2 Score 0 07/27/2021 Sex and Gender Information Value Date Recorded Sex Assigned at Not on file Gender Identity Not on file Sexual Orientation Not on file documented as of this encounter Plan of Treatment Upcoming Encounters Date Type Department Care Team (Late st Contact Info) Description 01/15/2024 3:30 PM CDT [facility] [address] [place] [address] Jacque Alexis APRN [employer] [address] [place] [address] documented as of this encounter Visit Diagnoses Not on filedocumented in this encounter Additional Health Concerns Assessment Noted Time PHQ-9 Depression Total Score: 0 06/23/20 21 4:11 PM CDT documented as of this encounter Care Teams Hospice Nurse Relationship Specialty Start Date End Date Ynug Madrigal MD RETIRED PCP - Orthopaedics Orthopedics 08/26/12 Winston Villatoro OD [facility] [place] [address] [place] [address] PCP - Ophthalmology Ophthalmology 02/11/13 Denise Woodson Ra, APRN [employer] [address] [place] [address] PCP - General Family Practice 09/21/20 Denise Woodson Ra, APRN [employer] [address] [place] [address] Assigned PCP 07/17/20 documented as of this encounter
--- OUTSIDE RECORDS SUMMARY | 2023-12-31 14:10 | XMS_ITS | Clinical Summary ---
Author Name Unknown Organization [facility] Address [address] [place] [address] Care Team Providers Care Oracle Fusion Middleware Developer Name Role Phone Darius Shaw M.D. Primary Care Provider [phone] Source Comments Patient records contain information from all sites at [facility]. For routine questions regarding patient records, call [phone] during business hours, M-F 8:00 AM - 5:00 PM Central Time. Record requests for emergency care only can be directed to [phone] at any time.[facility] Allergies Active Allergy Reactions Criticality Noted Date Comments Codeine GI intolerance High 09/23/2022 Erythromycin GI intolerance 06/01/2011 Erythromycin Base GI intolerance 02/03/2006 Mold Other (see comments) 08/22/2012 Pollen Extracts Other (see comments) 08/22/2012 Medications Medication Sig Dispensed Refills Start Date End Date Status fluticasone (FLONASE) 50 mcg/actuation nasal spray Administer 2 sprays into each nostril 2 (two) times a day. 54 g 3 06/04/2018 Active magnesium amino acid chelate 100 mg tablet Take 100 mg by mouth at bedtime. Active traZODone (DESYREL) 100 mg tablet Take 1 tablet (100 mg total) by mouth at bedtime. 30 tablet 11 01/10/2023 01/10/2024 Active buPROPion (Wellbutrin SR) 100 mg 12 hr tablet Take 1 tablet (100 mg total) by mouth 2 (two) times a day. 60 tablet 11 01/10/2023 01/10/2024 Active fluticasone furoate-vilanteroL (Breo Ellipta) 200-25 mcg/act inhaler Inhale 1 puff daily. 180 each 3 01/10/2023 Active albuterol 90 mcg/actuation inhaler Inhale 2 puffs every 4 (four) hours as needed for wheezing. 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 Atrial Septal Defect Unspecified 02/07/2017 Depression Major Recurrent Mild 12/02/2013 Overview: Depression Major Recurrent Mild Asthma NOS 10/22/2013 Overview: Asthma NOS (493.90) Rosacea 05/05/2012 Deficiency Vitamin D 08/10/2011 Other Specified Behavioral A nd Emotional Disorders With Onset Usually Occurring In Childhood And Adolescence 05/11/2010 Insomnia 05/11/2010 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 Rhinitis Allergic 07/08/2007 Resolved Problems Problem Noted Date Diagnosed Date Resolved Date Abdominal Pain 09/27/2022 10/12/2022 Proteinuria 11/16/2020 01/10/2023 Chronic Kidney Disease Stage 1 Glomerular Filtration Rate Greater Than 90 11/16/2020 01/11/20 Asthma Moderate Persistent 06/15/2019 0 01/10/2023 Depression Major Recurrent Severe 12/12/2013 01/10/2023 Overview: Major Depressive Disorder, Recurrent Episode, Severe Degree, without Mention of Psychotic Behavior Major depressive disorder, recurrent episode, severe, without mention of psychotic behavior Immunizations Name Administration Dates Next Due HepB, Unspecified 03/03/2012,11/07/2011,10/04/19 12 Influenza Split 07/17/2006 Influenza TIV (IM) 06/01/2013,06/04/2012, 007 Influenza, Unspecified 07/11/2017,2013,06/16/2013,2006 PPD Test 11/07/2011,10/08/2011 PPSV23(Discontinued) 03/16/2004 Td (Adult), adsorbed 04/05/2003 Td, (Adult) Unspecified 02/14/2003 Tdap 01/04/2021,01/26/2011 influenza vaccine quad (FLUZONE/FLUARIX) (6 months and older)(PF) 07/27/2020,06/15/2019 Family History Medical History Relation Name Comments Stroke Maternal Grandmother Relation Name Status Comments Maternal Grandmother Social History Tobacco Use Types Packs/Day Years Used Date Smoking Tobacco: Never Smokeless Tobacco: Never Tobacco Cessation:Counseling Given: Not Answered Alcohol Use Standard Drinks/Week Comments No 0 (1 standard drink = 0.6 oz pur e alcohol) Humiliation, Afraid, Rape, and Kick questionnair e Answer Date Recorded Within the last year, have y ou been afraid of your partner or ex-partner? No 01/10/2023 Within the last year, have y ou been humiliated or emotionally abused in other ways by your partner or ex-partner? No Within the last year, have y ou been kicked, hit, slapped, or otherwise physically hurt by your partner or ex-partner? No 01/10/2023 Within the last year, have y ou been raped or forced to have any kind of sexual activity by your partner or ex-partner? No 01/10/2023 Social Connection and Isolation Panel [NHANES] A nswer Date Recorded In a typical week, how many times do you talk on the phone with family, friends, or neighbors? Once a week 01/10/2023 How often do you get together with friends or re latives? Once a week 01/10/2023 How often do you attend nondenominational or yazidism serv ices? Never 01/10/2023 Do you belong to any clubs o r organizations such as nondenominational groups, unions, fraternal or athletic groups, or school groups? No 01/10/2023 How often do you attend meet ings of the clubs or organizations you belong to? Never 01/10/2023 Are you , , di vorced, , never , or living with a partner? 01/10/2023 AUDIT-C Answer Date Recorded Q1: How often do you have a drink containing alc ohol? Monthly or less 01/10/2023 Q2: How many drinks containi ng alcohol do you have on a typical day when you are drinking? 1 or 2 01/10/2023 Q3: How often do you have si x or more drinks on one occasion? Never 01/10/2023 Overall Financial Resource Strain (CARDIA) Answe r Date Recorded How hard is it for you to pa y for the very basics like food, housing, medical care, and heating? Not hard at all 01/10/2023 PHQ-2 Answer Date Recorded PHQ-2 Score 3 01/10/2023 [facility] - Occupational Stress Questionnaire Answer Date Recorded Do you feel stress - tense, restless, nervous, or anxious, or unable to sleep at night because your mind is troubled all the time - these days? Rather much 01/10/2023 Exercise Vital Sign Answer Date Recorde d On average, how many days pe r week do you engage in moderate to strenuous exercise (like a brisk walk)? 5 days 01/10/2023 On average, how many minutes do you engage in exercise at this level? 30 min 01/10/2023 Hunger Vital Sign Answer Date Recorded Within the past 12 months, y ou worried that your food would run out before you got the money to buy more. Never true 01/11/20 23 Within the past 12 months, t he food you bought just didn't last and you didn't have money to get more. Never true 01/10/2023 PRAPARE - Transportation Answer Date Re corded In the past 12 months, has l ack of transportation kept you from medical appointments or from getting medications? No 12/16 In the past 12 months, has l ack of transportation kept you from meetings, work, or from getting things needed for daily living? No 01/10/2023 Housing Stability Vital Sign Answer Roosevelt e Recorded In the last 12 months, was t here a time when you were not able to pay the mortgage or rent on time? No 01/10/2023 In the last 12 months, how many places have you lived? 1 01/10/2023 In the last 12 months, was t here a time when you did not have a steady place to sleep or slept in a usp (including now)? No 01/10/2023 Depression Answer Date Recor ded PHQ-9 Total Score (max 27) 16 01/10 Nutrition Answer Date Recorded Nutrition: EVOO Fat Source Yes 01/10 On average, how many serving s of fruits and vegetables do you eat per day (serving size is equal to 1 cup or approximately the size of a tennis ball)? 2-3 01/10/2023 Dental Answer Date Recorded Dental: Regular Dentist Yes 01/11/20 Employment Answer Date Recorded Employment status Employed and actively working without restrictions 01/10/2023 Education Answer Date Recorded What is the highest level of school you have completed or the highest degree you have received? Associate degree: academic program 01/10/2023 Sex and Gender Information Value Date Recorded Sex Assigned at Female 02/11/2018 8:36 AM CDT Gender Identity Female 02/11/2018 8:36 AM CDT Sexual Orientation Straight 02/11/2018 8: 36 AM CDT Last Filed Vital Signs Vital Sign Reading Time Taken Comments Blood Pressure 127/71 01/10/2023 3:45 PM CDT Pulse 76 01/10/2023 3:45 PM CDT Temperature 37 ??C (98.6 ??F) 01/10/2023 3:45 PM CDT Respiratory Rate 12 01/10/2023 3:45 PM CDT Oxygen Saturation 98% 01/10/2023 3:45 PM CDT Inhaled Oxygen Concentration - - Weight 81 kg (178 lb 9.2 oz) 01/10/2023 3:45 PM CDT Height 173 cm (5' 8.11) 01/10/2023 3:45 PM CDT Body Mass Index 27.06 01/10/2023 3:45 PM CDT Plan of Treatment Health Maintenance Due Date Last Done Comments CT Colonography 1976 Colonoscopy 1976 FIT 1976 HIV Screening 1976 Hepatitis C Screening 1976 Pneumococcal vaccine (0-64 y ears) (2 of 2 - PCV) 03/16/2005 03/16/2004 Asthma Action Plan 04/06/2017 04/06/2016 Depression Monitoring (PHQ-9) 05/12/2023 01/10/2023 COVID-19 Vaccine (3 - 2022-2 4 season) 2023 07/07/2021, 11/20/2020 Influenza Vaccine (#1) 2023 , 06/23/2021, 07/27/2020, Additional history exists Asthma Control Test Questionnaire 01/11/2024 01/10/2023, 01/10/2023, 04/06/2016 Mammogram 07/30/2024 07/30/2023, 04/16 (Performed elsewhere), 04/25/2022, Additional history exists Fasting Glucose for Diabetes Screening 09/30/2025 09/30/2022, 09/30/2022, 09/28/2022, Additional history exists Cologuard 10/28/2025 10/28/2022 Colorectal Cancer Screening 10/28/2025 Lipid (Cholesterol) Screening 07/27/2026, 07/27/2020, 02/13/2018, Additional history exists DTaP,Tdap,and Td Vaccines (3 - Td or Tdap) 01/04/2031 01/04/2021, 01/26/2011, 04/05/2003, Additional history exists Hepatitis B Vaccines Completed 03/03/2012, 03/03/2012, 11/07/2011, Additional history exists Medical Devices Implanted Type Area Technology Engineer Device Identifier Shelf Expiration Date Model / Serial / Lot Mesh Or Patch Mesh or Patch Heart Description:Amplatzer Septal Occluder Asd Closure Device 34mm - [employer] [id number] Implanted:Qty: 1 on 06/20/2006 Septal Defect Occluder Device Other/Legacy - See Implant Description Description:Device Manufactu [facility]. Device Status Text - [id number]. Procedures Procedure Name Priority Date/Time Associated Diagnosis Comments BI BREAST SCREENING BILATERAL WITH TOMOSYNTHESIS RAD - Routine (most inpatients and all outpatients) 07/30/2023 2:38 PM JUVENILE PROBATION OFFICER Screening Mammogram Breast Cancer COLOGUARD Routine 10/28/2022 5:54 PM JUVENILE PROBATION OFFICER Screening Cancer Colon VBG & LYTES CG8+, POCT, B Routine 09/30/2022 10:38 AM JUVENILE PROBATION OFFICER EXTI LIPID PANEL REFLEX TO DIRECT LDL Routine 07/27/2021 8:57 AM JUVENILE PROBATION OFFICER from Last 3 Months or Most Recently Relevant to Health Maintenance Results * BI Breast Screening Bilateral with Tomosynthesis (07/30/2023 2:38 PM JUVENILE PROBATION OFFICER) Anatomical Region Laterality Modality Breast, Breast Imaging RST L OS, Breast Imaging ARZ LOS, Breast Imaging FLA LOS Bilateral Mammography 08/01/2023 12:2 8 PM JUVENILE PROBATION OFFICER Impressions 08/01/2023 12:33 PM JUVENILE PROBATION OFFICER Negative. RECOMMENDATION: ??Annual Screening Mammogram ASSESSMENT: ??BI-RADS: 1: Negative. Narrative 08/01/2023 12:33 PM JUVENILE PROBATION OFFICER EXAM: ??BI BREAST SCREENING BILATERAL WITH TOMOSYNTHESIS Current study was evaluated with a Computer Aided Detection (CAD) system. INDICATION: ??Screening mammogram. COMPARISON: ??Prior exam(s) were available and reviewed for comparison. DENSITY: ??c. The breast(s) are heterogeneously dense, which may obscure small masses. FINDINGS: ??No mammographic findings of malignancy. Procedure Note Mikayla Natarajan D.O. - 08/01/2023 EXAM: BI BREAST SCREENING BILATERAL WITH TOMOSYNTHESIS Current study was evaluated with a Computer Aided Detection (CAD) system. INDICATION: Screening mammogram. COMPARISON: Prior exam(s) were available and reviewed for comparison. DENSITY: c. The breast(s) are heterogeneously dense, which may obscuresmall masses. FINDINGS: No mammographic findings of malignancy. IMPRESSION: Negative. RECOMMENDATION: Annual Screening Mammogram ASSESSMENT: BI-RADS: 1: Negative. Darius MERCER BI PROCEDURES * Cologuard-Sent Out Lab (10/28/2022 5:54 PM JUVENILE PROBATION OFFICER) [facility] Signature Result Negative Negative 11/03/2022 2:48 AM JUVENILE PROBATION OFFICER EXJUDE Comment: NEGATIVE TEST RESULT. A negative Cologuard result indicates a low likelihood that a colorectal cancer (CRC) or advanced adenoma (adenomatous polyps with more advanced pre-malignant features) ??is present. The chance that a person with a negative Cologuard test has a colorectal cancer is less than 1 in 1500 (negative predictive value >99.9%) or has an ??advanced adenoma is less than ??5.3% (negative predictive value 94.7%). These data are based on a prospective cross-sectional study of 10,000 individuals at average risk for colorectal cancer who were screened with both Cologuard and colonoscopy. (Yenny Gates et al, N Engl J Med 2014;370(14):4208-6299) The normal value (reference range) for this assay is negative. COLOGUARD RE-SCREENING RECOMMENDATION: Periodic colorectal cancer screening is an important part of preventive healthcare for asymptomatic individuals at average risk for colorectal cancer. ??Following a negative Cologuard result, the [place] [employer] Society and U.S. Multi-Society Task Force screening guidelines recommend a Cologuard re-screening interval of 3 years. References: [place] [employer] Guideline for Colorectal Cancer Screening: https://www.cancer.org/cancer/lmkrn-dlwnob-tmnimq/detection- diagnosis-staging/acs-recommendations.html.; Ming MARTINEZ, Barbra TREJO, Erna SimsK, Colorectal Cancer Screening: Recommendations for Physicians and Patients from the U.S. Multi-Society Task Force on Colorectal Cancer Screening , Am J Gastroenterology 2017; 112:8824-0607. TEST DESCRIPTION: Composite algorithmic analysis of stool DNA-biomarkers with hemoglobin immunoassay. ?? Quantitative values of individual biomarkers are not reportable and are not associated with individual biomarker result reference ranges. Cologuard is intended for colorectal cancer screening of adults of either sex, 45 years or older, who are at average-risk for colorectal cancer (CRC). Cologuard has been approved for use by the U.S. FDA. The performance of Cologuard was established in a cross sectional study of average-risk adults aged 50-84. Cologuard performance in patients ages 45 to 49 years was estimated by sub-group analysis of near-age groups. Colonoscopies performed for a positive result may find as the most clinically significant lesion: colorectal cancer [4.0%], advanced adenoma (including sessile serrated polyps greater than or equal to 1cm diameter) [20%] or non- advanced adenoma [31%]; or no colorectal neoplasia [45%]. These estimates are derived from a prospective cross-sectional screening study of 10,000 individuals at average risk for colorectal cancer who were screened with both Cologuard and colonoscopy. (Yenny Adkins al, N Engl J Med 2014;370(14):2828-5642.) Cologuard may produce a false negative or false positive result (no colorectal cancer or precancerous polyp present at colonoscopy follow up). A negative Cologuard test result does not guarantee the absence of CRC or advanced adenoma (pre-cancer). The current Cologuard screening interval is every 3 years. ([place] [employer] and U.S. Multi-Society Task Force). Cologuard performance data in a 10,000 patient pivotal study using colonoscopy as the reference method can be accessed at the following location: www.Medisse/results. Additional description of the Cologuard test process, warnings and precautions can be found at www.cologuard.com. Stool (Stool) 10/28/2022 5:5 4 PM JUVENILE PROBATION OFFICER 10/30/2022 1:57 PM JUVENILE PROBATION OFFICER Darius Shaw M.D. LAB BODY FLUIDS AND STOOLS ORDERABLES Last Size [address] [place] [id number] [employer] [address] [facility], [address] [place] [address] * Venous Blood Gas and Electrolytes CG8+, POCT (09/30/2022 10:38 AM JUVENILE PROBATION OFFICER) Sample Site, POCT Venstick 09/30/2022 10:54 AM JUVENILE PROBATION OFFICER PCSM Comment: ----ADDITIONAL INFORMATION---- Performed at the Point of Care pH, Venous, POCT, B 7.43 7.32 - 7.43 09/30/2022 10:54 AM JUVENILE PROBATION OFFICER PCSM Comment: ----ADDITIONAL INFORMATION---- Performed at the Point of Care pCO2, Venous, POCT, B 46 41 - 51 mm Hg 09/30/2022 10:54 AM JUVENILE PROBATION OFFICER PCSM Comment: ----ADDITIONAL INFORMATION---- Performed at the Point of Care pO2, Venous, POCT, B 25 Not Applicable mm Hg 09/30/2022 10:54 AM JUVENILE PROBATION OFFICER PCSM Comment: ----ADDITIONAL INFORMATION---- Performed at the Point of Care Base Excess, Venous, POCT, B 6 Not Applicable mmol/L 09/30/2022 10:54 AM JUVENILE PROBATION OFFICER PCSM Comment: ----ADDITIONAL INFORMATION---- Performed at the Point of Care HCO3, Venous, POCT, B 31 Not Applicable mmol/L 09/30/2022 10:54 AM JUVENILE PROBATION OFFICER PCSM Comment: ----ADDITIONAL INFORMATION---- Performed at the Point of Care Sodium, POCT, B 140 135 - 145 mmol/L 09/30/2022 10:54 AM JUVENILE PROBATION OFFICER PCSM Comment: ----ADDITIONAL INFORMATION---- Performed at the Point of Care Potassium, POCT, B 4.3 3.6 - 5.2 mmol/L 09/30/2022 10:54 AM JUVENILE PROBATION OFFICER PCSM Comment: ----ADDITIONAL INFORMATION---- Performed at the Point of Care Calcium, Ionized, POCT, B 5.20 4.65 - 5.30 mg/dL 09/30/2022 10:54 AM JUVENILE PROBATION OFFICER PCSM Comment: ----ADDITIONAL INFORMATION---- Performed at the Point of Care Glucose, POCT, B 117 70 - 140 mg/dL 09/30/2022 10:54 AM JUVENILE PROBATION OFFICER PCSM Comment: ----ADDITIONAL INFORMATION---- Performed at the Point of Care Hematocrit, POCT, B 44.0 35.5 - 44.9 % 09/30/2022 10:54 AM JUVENILE PROBATION OFFICER PCSM Comment: ----ADDITIONAL INFORMATION---- Performed at the Point of Care Blood 09/30/2022 10:3 8 AM JUVENILE PROBATION OFFICER 09/30/2022 10:54 AM JUVENILE PROBATION OFFICER Unknown Provider LAB POCT ORDERABLES - DEVICE POC [facility] [address] [place] [address], [place] [facility] POC [address] [place] [address] from Last 3 Months or Most Recently Relevant to Health Maintenance Advance Directives For more information, please contact: [phone] * Full Code (Latest Code Status on File) Date Activated Date Inactivated Comments 09/30/2022 4:41 PM 10/02/2022 6:08 PM Question Answer Comments Full Code: Discussed Care Teams Oracle Fusion Middleware Developer Relationship Specialty Start Date End Date Darius Shaw M.D. [id number] [id number] PCP - General Family Medicine 09/27/22
--- OUTSIDE RECORDS SUMMARY | 2023-12-31 14:10 | XMS_ITS | Referral Summary ---
Author Name Unknown Organization [facility] Address [address] [place] [address] Care Team Providers Care Wrister Name Role Phone Darius Shaw M.D. Primary Care Provider [phone] Source Comments Patient records contain information from all sites at [facility]. For routine questions regarding patient records, call [phone] during business hours, M-F 8:00 AM - 5:00 PM Central Time. Record requests for emergency care only can be directed to [phone] at any time.[facility] Allergies Active Allergy Reactions Criticality Noted Date [...] quad (FLUZONE/FLUARIX) (6 months and older)(PF) 07/27/2020,06/15/2019 Social History Tobacco Use Types Packs/Day Years [...] week 01/10/2023 How often do you attend baptism or sikhism serv ices? Never 01/10/2023 Do you belong to any clubs o r organizations such as baptism groups, unions, fraternal or athletic groups, or [...] Answer Date Recorded PHQ-2 Score 3 01/10/2023 [facility] - Occupational Stress Questionnaire Answer Date Recorded [...] place to sleep or slept in a care home (including now)? No 01/10/2023 Depression Answer Date [...] 01/10/2023 3:45 PM CDT Plan of Treatment Not on file Medical Devices Implanted Type Area Director Volunteer Services Device Identifier Shelf Expiration Date Model / Serial / Lot Mesh Or Patch Mesh or Patch Heart Description:Amplatzer Septal Occluder Asd Closure Device 34mm - Sanders [id number] Implanted:Qty: 1 on 06/20/2006 Septal Defect Occluder Device Other/Legacy - See Implant Description Description:Device Manufactu rer - [employer]. Device Status Text - [id number]. Procedures Procedure Name Priority Date/Time Associated Diagnosis Comments BI BREAST SCREENING BILATERAL WITH TOMOSYNTHESIS RAD - Routine (most inpatients and all outpatients) 07/30/2023 2:38 PM MANAGER ELECTRICAL Screening Mammogram Breast Cancer COLOGUARD Routine 10/28/2022 5:54 PM MANAGER ELECTRICAL Screening Cancer Colon VBG & LYTES CG8+, POCT, B Routine 09/30/2022 10:38 AM MANAGER ELECTRICAL EXTI LIPID PANEL REFLEX TO DIRECT LDL Routine 07/27/2021 8:57 AM MANAGER ELECTRICAL from Last 3 Months or Most Recently Relevant to Health Maintenance Results * BI Breast Screening Bilateral with Tomosynthesis (07/30/2023 2:38 PM MANAGER ELECTRICAL) Anatomical Region Laterality Modality Breast, Breast Imaging RST L OS, Breast Imaging ARZ LOS, Breast Imaging FLA LOS Bilateral Mammography 08/01/2023 12:2 8 PM MANAGER ELECTRICAL Impressions 08/01/2023 12:33 PM MANAGER ELECTRICAL Negative. RECOMMENDATION: ??Annual Screening Mammogram ASSESSMENT: ??BI-RADS: 1: Negative. Narrative 08/01/2023 12:33 PM MANAGER ELECTRICAL EXAM: ??BI BREAST SCREENING BILATERAL WITH TOMOSYNTHESIS Current study was evaluated with a Computer Aided Detection (CAD) system. INDICATION: ??Screening mammogram. COMPARISON: ??Prior exam(s) were available and reviewed for comparison. DENSITY: ??c. The breast(s) are heterogeneously dense, which may obscure small masses. FINDINGS: ??No mammographic findings of malignancy. Procedure Note Mikayla Nataarjan D.O. - 08/01/2023 EXAM: BI BREAST SCREENING BILATERAL WITH TOMOSYNTHESIS Current study was evaluated with a Computer Aided Detection (CAD) system. INDICATION: Screening mammogram. COMPARISON: Prior exam(s) were available and reviewed for comparison. DENSITY: c. The breast(s) are heterogeneously dense, which may obscuresmall masses. FINDINGS: No mammographic findings of malignancy. IMPRESSION: Negative. RECOMMENDATION: Annual Screening Mammogram ASSESSMENT: BI-RADS: 1: Negative. Darius Shaw M.D. [facility] [place] BI PROCEDURES * Cologuard-Sent Out Lab (10/28/2022 5:54 PM MANAGER ELECTRICAL) Result Negative Negative 11/03/2022 2:48 AM MANAGER ELECTRICAL EXLI Comment: NEGATIVE TEST RESULT. A negative Cologuard [...] (Yenny Adkins al, N Engl J Med 2014;370(14):3781-0159) The normal value (reference range) for this assay is negative. COLOGUARD RE-SCREENING RECOMMENDATION: Periodic colorectal cancer screening is an important part of preventive healthcare for asymptomatic individuals at average risk for colorectal cancer. ??Following a negative Cologuard result, the [place] [employer] and U.S. Multi-Society Task Force screening guidelines recommend a Cologuard re-screening interval of 3 years. References: [place] [employer] Guideline for Colorectal Cancer Screening: https://www.cancer.org/cancer/cnhog-quyykw-wmljzj/detection- diagnosis-staging/acs-recommendations.html.; Ming DK, Barbra CR, Erna SimsK, Colorectal Cancer Screening: Recommendations for Physicians and Patients from the U.S. Multi-Society Task Force on Colorectal Cancer Screening , Am J Gastroenterology 2017; 112:2461-1198. TEST DESCRIPTION: Composite algorithmic analysis of stool [...] (Yenny Adkins al, N Engl J Med 2014;370(14):7748-7127.) Cologuard may produce a false negative or false positive result (no colorectal cancer or precancerous polyp present at colonoscopy follow up). A negative Cologuard test result does not guarantee the absence of CRC or advanced adenoma (pre-cancer). The current Cologuard screening interval is every 3 years. ([place] [employer] and U.S. Multi-Society Task Force). Cologuard performance data in a 10,000 patient pivotal study using colonoscopy as the reference method can be accessed at the following location: www.FREEjit.JuiceBoxJungle/results. Additional description of the Cologuard test process, warnings and precautions can be found at www.cologuard.com. Stool (Stool) 10/28/2022 5:5 4 PM MANAGER ELECTRICAL 10/30/2022 1:57 PM MANAGER ELECTRICAL Darius Shaw M.D. LAB BODY FLUIDS AND STOOLS ORDERABLES [facility] [address] [place] [id number] EX[facility] [address] [place] [address], [address] [place] [address] * Venous Blood Gas and Electrolytes CG8+, POCT (09/30/2022 10:38 AM MANAGER ELECTRICAL) Pathologist [facility] Sample Site, POCT Venstick 09/30/2022 10:54 AM MANAGER ELECTRICAL PCSM Comment: ----ADDITIONAL INFORMATION---- Performed at the Point of Care pH, Venous, POCT, B 7.43 7.32 - 7.43 09/30/2022 10:54 AM MANAGER ELECTRICAL PCSM Comment: ----ADDITIONAL INFORMATION---- Performed at the Point of Care pCO2, Venous, POCT, B 46 41 - 51 mm Hg 09/30/2022 10:54 AM MANAGER ELECTRICAL PCSM Comment: ----ADDITIONAL INFORMATION---- Performed at the Point of Care pO2, Venous, POCT, B 25 Not Applicable mm Hg 09/30/2022 10:54 AM MANAGER ELECTRICAL PCSM Comment: ----ADDITIONAL INFORMATION---- Performed at the Point of Care Base Excess, Venous, POCT, B 6 Not Applicable mmol/L 09/30/2022 10:54 AM MANAGER ELECTRICAL PCSM Comment: ----ADDITIONAL INFORMATION---- Performed at the Point of Care HCO3, Venous, POCT, B 31 Not Applicable mmol/L 09/30/2022 10:54 AM MANAGER ELECTRICAL PCSM Comment: ----ADDITIONAL INFORMATION---- Performed at the Point of Care Sodium, POCT, B 140 135 - 145 mmol/L 09/30/2022 10:54 AM MANAGER ELECTRICAL PCSM Comment: ----ADDITIONAL INFORMATION---- Performed at the Point of Care Potassium, POCT, B 4.3 3.6 - 5.2 mmol/L 09/30/2022 10:54 AM MANAGER ELECTRICAL PCSM Comment: ----ADDITIONAL INFORMATION---- Performed at the Point of Care Calcium, Ionized, POCT, B 5.20 4.65 - 5.30 mg/dL 09/30/2022 10:54 AM MANAGER ELECTRICAL PCSM Comment: ----ADDITIONAL INFORMATION---- Performed at the Point of Care Glucose, POCT, B 117 70 - 140 mg/dL 09/30/2022 10:54 AM MANAGER ELECTRICAL PCSM Comment: ----ADDITIONAL INFORMATION---- Performed at the Point of Care Hematocrit, POCT, B 44.0 35.5 - 44.9 % 09/30/2022 10:54 AM MANAGER ELECTRICAL PCSM Comment: ----ADDITIONAL INFORMATION---- Performed at the Point of Care Blood 09/30/2022 10:3 8 AM MANAGER ELECTRICAL 09/30/2022 10:54 AM MANAGER ELECTRICAL Unknown Provider LAB POCT ORDERABLES - DEVICE POC RST [facility] [address] [place] [address], [facility] PCSM [facility] [address] [place] [address] from Last 3 Months or Most Recently Relevant to Health Maintenance Advance Directives For more information, please contact: [phone] * Full Code (Latest Code Status on File) Date Activated Date Inactivated Comments 09/30/2022 4:41 PM 10/02/2022 6:08 PM Question Answer Comments Full Code: Discussed Care Teams Wrister Relationship Specialty Start Date End Date Darius Shaw M.D. [id number] [place] [phone] PCP - General Family Medicine 09/27/22
--- OUTSIDE RECORDS SUMMARY | 2023-12-31 14:10 | XMS_ITS | Clinical Summary ---
Author Name Unknown Organization [facility] Address [place], [place] [address] Care Team Providers Care Drawer Liner Name Role Phone Pcp, No Primary Care Provider Unavailabl e Allergies Active Allergy Reactions Criticality Noted Date Comments Acetaminophen-Codeine Nausea And Vomiting,Other - Describe In Comment Field 01/10/2022 Bupropion Other - Describe In Comment Field 01/19/2011 Diarrhea and stomach ache Erythromycin 07/04/2007 Mold Dizziness 08/22/2012 Pollen Extracts *Unknown 08/22/2012 Medications Medication Sig Dispensed Refills Start Date End Date Status cyclobenzaprine (FLEXERIL) 10 mg tabletIndications:Cerv ical disc syndrome Take 1 tablet by mouth 3 times daily. As needed for muscle spasm 30 tablet 1 05/16/2012 Active albuterol HFA (PRO-AIR,VENTOLIN,PROV ENTIL) 90 mcg/actuation inhalerIndications:Mil d persistent asthma with acute exacerbation Inhale 2 Puffs by mouth 4 times daily if needed. 1 Inhaler 0 01/13/2016 Active ondansetron (ZOFRAN) 4 mg tabletIndications:Margareth umbilical pain Take 1 tablet by mouth every 8 hours if needed for Nausea/Vomiting. 30 tablet 11/02/2019 Active durable medical equipment (DME)Indications:Plant ar fasciitis, bilateral [phone] Plantar Fasciitis, night splint, Large 1 Each 04/12/2021 Active Magnesium Amino Acid Chelate 100 mg tab Take 100 mg by mouth. Active ketorolac (TORADOL) 10 mg tablet Take 10 mg by mouth every 6 hours if needed. 06/03/2021 Active LORazepam (ATIVAN) 0.5 mg tab as needed. Active fluticasone furoate-vilanteroL (Breo Ellipta) 200mcg/25mcg inhalerIndications:BPD (bronchopulmonary dysplasia) Inhale 1 Puff by mouth once daily. 90 Each 3 03/07/2022 Active traZODone (DESYREL) 100 mg tabletIndications:Othe r insomnia Take 1 Tablet (100 mg) by mouth at bedtime. 90 Tablet 3 03/07/2022 Active buPROPion (WELLBUTRIN SR) 100 mg Sustained-Release tabletIndications:Anxi ety and depression Take 1 Tablet (100 mg) by mouth two times daily. Start with once daily for 1 week. 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 Cervical disc syndrome Fibromyalgia Immunizations Name Administration Dates Next Due COVID-19 vaccine (Spruik 30mcg/0.3mL) PF, MDV 07/07/2021 Hepatitis B, Unspecified 03/03/2012,02/14,11/07/2011,2011,10/04/2011,10/04/2011 Influenza Virus, Unspecified 07/11/2017, 07/02/2014,06/16/2013,2012,06/04/2012,07/04/2007,07/17/2006 Influenza, IIV3 (Age 6-35 mos) 06/01/2013,2011 Influenza, IIV3 (Age >=3 years) 06/04/2012,07/04,10/17/2005 Influenza, IIV4 08/02/2022,,07/27/2020,2018,08/07/2017,07/11/2017 Pneumococcal Poly,23-Valent (Pneumovax) 03/16/2004 TD, UNSPECIFIED 02/14/2003 Td (Age >=7 Years) 04/05/2003,02/14/2003 Td, Preservative Free (age > = 7 Years) 04/05/2003 Tdap 01/04/2021,01/26/2011 Tuberculin Skin Test, Unspecified 11/07/2011, Family History Medical History Relation Name Comments Unknown Father he was adopted, and young in MVA Good Health Mother Relation Name Status Comments Father Mother Social History Tobacco Use Types Packs/Day Years Used Date Smoking Tobacco: Never Smokeless Tobacco: Never Tobacco Cessation:Counseling Given: Yes Alcohol Use Standard Drinks/Week Comments No 0 (1 standard drink = 0.6 oz pur e alcohol) PHQ-2 Answer Date Recorded PHQ-2 TOTAL SCORE 5 01/09/2023 Social Connections Answer Date Recorded Frequency of Communication with Friends and Fami ly Not on file 2021 Financial Resource Strain Answer Date R ecorded Difficulty of Paying Living Expenses Not on file 2021 Difficulty of Paying Living Expenses Not on file 2021 Sex and Gender Information Value Date Recorded Sex Assigned at Not on file Gender Identity Not on file Sexual Orientation Not on file Obstetrics History Last Filed Vital Signs Vital Sign Reading Time Taken Comments Blood Pressure 136/69 01/09/2023 1:44 PM CDT Pulse 81 01/09/2023 1:44 PM CDT Temperature 36.6 ??C (97.8 ??F) 01/10/2022 4:36 PM CD T Respiratory Rate - - Oxygen Saturation 99% 01/09/2023 1:44 PM CDT Inhaled Oxygen Concentration - - Weight 82 kg (180 lb 11.2 oz) 01/09/2023 1:44 PM CDT Height 173.5 cm (5' 8.31) 01/09/2023 1:44 PM CD T Body Mass Index 27.23 01/09/2023 1:44 PM CDT Plan of Treatment Health Maintenance Due Date Last Done Comments HIV for age 15-65 1991 Hepatitis C screening for age 18-79 1994 Colonoscopy through age 75 2021 Lipids for age 45-75 2021 08/03/2011 Mammogram for age 45-75 2021 COVID-19 vaccine series ( season) 2023 07/07/2021, 11/20/2020 BMI (ht and wt on same day) for age 18+ 01/10/2024 01/09/2023, 01/10/2022, 11/02/2019, Additional history exists Depression screening for age 12+ 01/12/2024 01/11/2023, 01/09/2023 Influenza for age 9-49 05/17/2024 , 06/23/2021, 07/27/2020, Additional history exists Tetanus booster 01/04/2031 01/04/2021, 01/14, 04/05/2003, Additional history exists Pneumococcal series for age 6-64 Aged Out 03/16/2004 No longer eligible based on patient's age to complete this topic Tdap Completed 01/04/2021, 01/26/2011 Procedures Procedure Name Priority Date/Time Associated Diagnosis Comments LIPID PANEL W REFLEX MEASURED LDL Routine 08/03/2011 10:31 AM MANAGER OF ENTERPRISE Screening for other and unspecified cardiovascular conditions from Last 3 Months or Most Recently Relevant to Health Maintenance Results * LIPID PANEL W REFLEX MEASURED LDL (08/03/2011 10:31 AM MANAGER OF ENTERPRISE) CHOLESTEROL,TOTAL 171 110 - 199 mg/dL [facility] TRIGLYCERIDES 67 <150 mg/dL [facility] HDL CHOLESTEROL 43 >40 mg/dL [facility] CHOL/HDL RATIO 3.98 <4.51 [facility] LDL CHOLESTEROL 115 <131 mg/dL [facility] PATIENT STATUS Fasting [facility] Blood specimen (specimen) BLOOD SPECIMEN / Unknown 08/03/2011 10:31 AM MANAGER OF ENTERPRISE 08/03/2011 10:23 AM MANAGER OF ENTERPRISE Jasvir Pickens MD CHEMISTRY [facility] [address] [place] [id number] from Last 3 Months or Most Recently Relevant to Health Maintenance Care Teams Drawer Liner Relationship Specialty Start Date End Date Pcp, No . PCP - General 11/07/22
--- OUTSIDE RECORDS SUMMARY | 2023-12-31 14:10 | XMS_ITS | Encounter Summary ---
Author Name Unknown Organization [facility] Address [address] [place] [address] Care Team Providers Care Automotive Glass Mechanic Name Role Phone Darius Shaw M.D. Primary Care Provider Encounter Details Date Type Department Care Team (Late st Contact Info) Description 05/12/2013 Historical Ophthalmology [facility] Jonathan Bonilla M.D. [address] [place] [phone] Social History Tobacco Use Types Packs/Day Years Used Date Smoking Tobacco: Never Assessed Sex and Gender Information Value Date Recorded Sex Assigned at Female 02/11/2018 8:36 AM CDT Gender Identity Female 02/11/2018 8:36 AM CDT Sexual Orientation Straight 02/11/2018 8: 36 AM CDT documented as of this encounter Progress Notes * Jonathan Bonilla M.D. - 05/12/2013 12:56 PM [...] corneal thickness CDM Reports - EYEGEN Id: [id number] Status: Fnl documented in this encounter Plan of Treatment Not on file documented as of this encounter Visit Diagnoses Not on filedocumented in this encounter Additional Health Concerns Infection Onset Date Last Indicated Resolved Time COVID19 Pending 07/11/2020 07/11/2020 07/12/2020 5 :56 PM CDT COVID19 Pending 07/17/2020 07/17/2020 07/17/2020 9 :18 PM CHILD DEVELOPMENT ASSISTANT COVID19 Pending 09/19/2020 09/19/2020 10/09/2020 4 :45 AM CHILD DEVELOPMENT ASSISTANT COVID19 Pending 10/25/2020 10/26/2020 10/27/2020 9 :59 AM CHILD DEVELOPMENT ASSISTANT COVID19 Pending 06/03/2021 06/03/2021 06/03/2021 9 :40 AM CDT COVID19 Pending 06/03/2021 06/03/2021 06/03/2021 1 0:36 PM CDT COVID19 Pending 08/09/2021 08/09/2021 08/11/2021 1 2:57 AM CHILD DEVELOPMENT ASSISTANT COVID19 Pending 06/26/2022 06/26/2022 06/26/2022 5 :47 PM CDT Assessment Noted Time PHQ-9 Depression Total Score: 8 09/18/19 13 7:41 AM CHILD DEVELOPMENT ASSISTANT documented as of this encounter Care Teams Automotive Glass Mechanic Relationship Specialty Start Date End Date Darius Shaw M.D. [id number] [phone] PCP - General Family Medicine 09/27/22 documented as of this encounter
--- OUTSIDE RECORDS SUMMARY | 2023-12-31 14:10 | XMS_ITS | Referral Summary ---
Author Name Unknown Organization [facility] Address [address] [place] [address] Care Team Providers Care Diagnostic Cardiac Sonographer Name Role Phone Yung Madrigal MD Unavailable Unavailable Winston Villatoro OD Unavailable [phone] Denise Woodson Ra, APRN PASTOR Unavailable [phone] Denise Woodson Ra, APRN PASTOR Primary Care Provid er Allergies Active Allergy Reactions Criticality Noted Date Comments Bupropion GI Disturbance,Other (See Comments) Low 01/19/2011 Diarrhea and stomach ache Erythromycin GI Disturbance Low 12/27/2005 Mold Dizziness,GI Disturbance 08/22/2012 Medications Medication Sig Dispensed Refills Start Date End Date Status cyclobenzaprine (FLEXERIL) 10 MG tabletIndications:Ne ck muscle spasm Take 1 tablet (10 mg) by mouth 3 times daily as needed for muscle spasms 20 tablet 06/12/2017 Active Chelated Magnesium 100 MG TABS Take 100 mg by mouth At Bedtime Active fluticasone (FLONASE) 50 MCG/ACT nasal sprayIndications:Chr onic rhinitis [place] 2 sprays into both nostrils daily 16 g 3 06/15/2019 Active albuterol (PROAIR HFA/PROVENTIL HFA/VENTOLIN HFA) 108 (90 Base) MCG/ACT inhalerIndications:M oderate persistent asthma without complication Inhale 2 puffs into the lungs every 4 hours as needed for shortness of breath / dyspnea or wheezing 1 Inhaler 3 07/13/2020 Active traZODone (DESYREL) 50 MG tabletIndications:In somnia, unspecified type Take 2 tablets (100 mg) by mouth At Bedtime 180 tablet 3 07/27/2021 Active BREO ELLIPTA 200-25 MCG/INH InhalerIndications:M oderate persistent asthma without complication INHALE 1 PUFF INTO THE LUNGS DAILY 3 each 1 02/22/2022 Active Active Problems Problem Noted Date Diagnosed Date Moderate persistent asthma without complication 06/15/2019 Chronic rhinitis 06/15/2019 Mild recurrent major depression (H24) 06/15/2019 Insomnia, unspecified type 06/15/2019 Anti-TPO antibodies present 06/15/2019 Attention deficit hyperactiv ity disorder (ADHD), predominantly inattentive type 02/07/2017 BPD (bronchopulmonary dysplasia) (H28) 7 Herniated cervical disc 02/07/2017 DDD (degenerative disc disease), cervical 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 ASD (atrial septal defect) 02/07/2017 Chronic respiratory disease arising in the period (H28) 04/21/2013 Rosacea 05/05/2012 Generalized anxiety disorder 10/08/2007 Resolved Problems Problem Noted Date Diagnosed Date Resolved Date Dysthymic disorder 10/08/2007 8 Immunizations Name Administration Dates Next Due COVID-19 Vaccine (Jose Antonio) 11/20/2020 HepB 03/03/2012,11/07/2011,10/04/2011 Influenza (IIV3) PF 06/01/2013,07/04/2007 Influenza Vaccine >6 months,quad, PF 04/2021,07/27/2020,06/15/2019,2016 Mantoux Tuberculin Skin Test 11/07/2011,10/08/19 12 Pneumococcal 23 valent 03/16/2004 TD,PF 7+ (Tenivac) 04/05/2003 TDAP (Adacel,Boostrix) 01/04/2021,01/26/2011 Social History Tobacco Use Types Packs/Day Years Used Date Smoking Tobacco: Never Smokeless Tobacco: Never Tobacco Cessation:Counseling Given: No Alcohol Use Standard Drinks/Week Comments Not Currently 0 (1 standard drink = 0.6 oz pur e alcohol) minimal PHQ-2 Answer Date Recorded PHQ-2 Score 0 07/27/2021 Adolescent Education Answer Date Record ed Getting School Help Needed Not on file 07/01 Sex and Gender Information Value Date Recorded Sex Assigned at Not on file Gender Identity Not on file Sexual Orientation Not on file Last Filed Vital Signs Vital Sign Reading Time Taken Comments Blood Pressure 108/68 07/27/2021 8:28 AM CONTACT REPRESENTATIVE Pulse 68 07/27/2021 8:28 AM CONTACT REPRESENTATIVE Temperature 36.9 ??C (98.4 ??F) 07/27/2021 8:28 AM CS T Respiratory Rate 12 07/27/2021 8:28 AM CONTACT REPRESENTATIVE Oxygen Saturation 97% 07/27/2021 8:28 AM CONTACT REPRESENTATIVE Inhaled Oxygen Concentration - - Weight 99.3 kg (219 lb) 07/27/2021 8:28 AM CONTACT REPRESENTATIVE Height 174.6 cm (5' 8.75) 02/08/2021 10:22 AM C DT Body Mass Index 32.58 02/08/2021 10:22 AM CDT Plan of Treatment Upcoming Encounters Date Type Department Care Team (Late st Contact Info) Description 01/15/2024 3:30 PM CDT [facility] [address] [place] [address] Jacque Alexis, BARRERA PASTOR [address] [place], [place] [id number] Procedures Procedure Name Priority Date/Time Associated Diagnosis Comments MA SCREENING BILATERAL W/ MAT Routine 04/25/2022 5:03 PM CDT Visit for screening mammogram COMPREHENSIVE METABOLIC PANEL Routine 07/27/2021 8:57 AM CONTACT REPRESENTATIVE Routine general medical examination at a [facility] care facility CARDIOVASCULAR SCREENING; LDL GOAL LESS THAN 160 LIPID REFLEX TO DIRECT LDL PANEL Routine 07/27/2021 8:57 AM CONTACT REPRESENTATIVE CARDIOVASCULAR SCREENING; LDL GOAL LESS THAN 160 ASTHMA ACTION PLAN Routine 01/04/2021 9: 09 AM CDT from Last 3 Months or Most Recently Relevant to Health Maintenance Results * MA Screen Bilateral w/Mat (04/25/2022 5:03 PM CDT) Anatomical Region Laterality Modality Breast Bilateral Mammography Impressions 04/26/2022 7:41 AM CDT IMPRESSION: BI-RADS CATEGORY: 0 - Incomplete - Need Additional Imaging Evaluation and/or Prior Mammograms for Comparison. RECOMMENDED FOLLOW-UP: Ultrasound. Recommend targeted ultrasound. Exam results letter mailed to patient. JEVON HOWELL MD Narrative 04/26/2022 7:41 AM CDT SCREENING MAMMOGRAM, BILATERAL, DIGITAL w/CAD AND TOMOSYNTHESIS - 04/25/2022 5:03 PM. BREAST SYMPTOMS: No current breast complaints. COMPARISON: ??Prior mammograms in 2020 and 2018. BREAST DENSITY: Heterogeneously dense. COMMENTS: No findings of suspicion for malignancy in the left breast. There is an oval mass in the right upper posterior, likely bilateral, breast, possibly representing a lymph node. Procedure Note Jevon Howell MD - 04/26/2022 SCREENING MAMMOGRAM, BILATERAL, DIGITAL w/CAD AND TOMOSYNTHESIS - 04/25/2022 5:03 PM. BREAST SYMPTOMS: No current breast complaints. COMPARISON: Prior mammograms in 2020 and 2018. BREAST DENSITY: Heterogeneously dense. COMMENTS: No findings of suspicion for malignancy in the left breast. There is an oval mass in the right upper posterior, likely bilateral, breast, possibly representing a lymph node. IMPRESSION: BI-RADS CATEGORY: 0 - Incomplete - Need Additional Imaging Evaluation and/or Prior Mammograms for Comparison. RECOMMENDED FOLLOW-UP: Ultrasound. Recommend targeted ultrasound. Exam results letter mailed to patient. JEVON HOWELL MD Denise Woodson APRN PASTOR IMG MAMMOGRA PHY ORDERABLES * (ABNORMAL) Lipid panel reflex to direct LDL Fasting (07/27/2021 8:57 AM CONTACT REPRESENTATIVE) Cholesterol 202(H) <200 mg/dL 07/28/2021 10:12 AM CONTACT REPRESENTATIVE [facility] Triglycerides 91 <150 mg/dL 07/28/2021 10:12 AM CONTACT REPRESENTATIVE [facility] Direct Measure HDL 56 >=50 mg/dL 07/28/2021 10:12 AM CONTACT REPRESENTATIVE [facility] LDL Cholesterol Calculated 128(H) <=100 mg/dL 07/28/2021 10:12 AM CONTACT REPRESENTATIVE [facility] Non HDL Cholesterol 146(H) <130 mg/dL 07/28/2021 10:12 AM CONTACT REPRESENTATIVE [facility] Patient Fasting > 8hrs? Yes 07/28/2021 10:12 AM CONTACT REPRESENTATIVE [facility] Blood STRUCTURE OF RIGHT UPPER LIMB / Unknown Venipuncture / Unknown 07/27/2021 8:57 AM CONTACT REPRESENTATIVE 07/27/2021 8:57 AM CONTACT REPRESENTATIVE Narrative [facility] - 07/28/2021 10:12 AM CONTACT REPRESENTATIVE Cholesterol Desirable: ??<200 mg/dL Triglycerides Normal: ??Less than 150 mg/dL Borderline High: ??150-199 mg/dL High: ??200-499 mg/dL Very High: ??Greater than or equal to 500 mg/dL Direct Measure HDL Female: ??Greater than or equal to 50 mg/dL Male: ??Greater than or equal to 40 mg/dL LDL Cholesterol Desirable: ??<100mg/dL Above Desirable: ??100-129 mg/dL Borderline High: ??130-159 mg/dL High: ??160-189 mg/dL Very High: ??>= 190 mg/dL Non HDL Cholesterol Desirable: ??130 mg/dL Above Desirable: ??130-159 mg/dL Borderline High: ??160-189 mg/dL High: ??190-219 mg/dL Very High: ??Greater than or equal to 220 mg/dL Denise Woodson APRN PASTOR LAB - BLOOD ORDERABLES [facility] [address] Lab (no room number, 1st floor of clinic) [place] [address], [facility] [phone] * Comprehensive metabolic panel (BMP + Alb, Alk Phos, ALT, AST, Total. Bili, TP) (07/27/2021 8:57 AM CONTACT REPRESENTATIVE) Sodium 139 133 - 144 mmol/L 07/28/2021 10:12 AM CONTACT REPRESENTATIVE [facility] Potassium 4.0 3.4 - 5.3 mmol/L 07/28/2021 10:12 AM CONTACT REPRESENTATIVE [facility] Chloride 105 94 - 109 mmol/L 07/28/2021 10:12 AM CONTACT REPRESENTATIVE [facility] Carbon Dioxide (CO2) 26 20 - 32 mmol/L 07/28/2021 10:12 AM CONTACT REPRESENTATIVE [facility] Anion Gap 8 3 - 14 mmol/L 07/28/2021 10:12 AM CONTACT REPRESENTATIVE [facility] Urea Nitrogen 20 7 - 30 mg/dL 07/28/2021 10:12 AM CONTACT REPRESENTATIVE [facility] Creatinine 0.74 0.52 - 1.04 mg/dL 07/28/2021 10:12 AM CONTACT REPRESENTATIVE [facility] Calcium 8.8 8.5 - 10.1 mg/dL 07/28/2021 10:12 AM CONTACT REPRESENTATIVE [facility] Glucose 95 70 - 99 mg/dL 07/28/2021 10:12 AM CONTACT REPRESENTATIVE [facility] Alkaline Phosphatase 67 40 - 150 U/L 07/28/2021 10:12 AM CONTACT REPRESENTATIVE [facility] AST 8 0 - 45 U/L 07/28/2021 10:12 AM CONTACT REPRESENTATIVE [facility] ALT 18 0 - 50 U/L 07/28/2021 10:12 AM CONTACT REPRESENTATIVE [facility] Protein Total 7.6 6.8 - 8.8 g/dL 07/28/2021 10:12 AM CONTACT REPRESENTATIVE [facility] Albumin 3.4 3.4 - 5.0 g/dL 07/28/2021 10:12 AM CONTACT REPRESENTATIVE [facility] Bilirubin Total 0.5 0.2 - 1.3 mg/dL 07/28/2021 10:12 AM CONTACT REPRESENTATIVE [facility] GFR Estimate >90 >60 mL/min/1.7 3m2 07/28/2021 10:12 AM CONTACT REPRESENTATIVE [facility] Comment:As of March 26, 2021, eGFR is calculated by the CKD-EPI creatinine equation, without race adjustment. eGFR can be influenced by muscle mass, exercise, and diet. The reported eGFR is an estimation only and is only applicable if the renal function is stable. Blood STRUCTURE OF RIGHT UPPER LIMB / Unknown Venipuncture / Unknown 07/27/2021 8:57 AM CONTACT REPRESENTATIVE 07/27/2021 8:57 AM CONTACT REPRESENTATIVE Denise Woodson APRN PASTOR LAB - BLOOD ORDERABLES [facility] [address] Lab (no room number, 1st floor of clinic) [place] [address], [facility] [phone] from Last 3 Months or Most Recently Relevant to Health Maintenance Care Teams Diagnostic Cardiac Sonographer Relationship Specialty Start Date End Date Yung Madrigal MD RETIRED PCP - Orthopaedics Orthopedics 08/26/12 Winston Villatoro OD [facility] [address] [facility] [address] [place] [address] PCP - Ophthalmology Ophthalmology 02/11/13 Denise Woodson Ra, APRN PASTOR [address] [place] [address] PCP - General Family Practice 09/21/20 Denise Woodson Ra, APRN PASTOR [address] [address] [id number] Assigned PCP 07/17/20
--- OUTSIDE RECORDS SUMMARY | 2023-12-31 14:10 | XMS_ITS ---
Author Name Unknown Organization [facility] Address [address] [place] [address] Care Team Providers Care Casino Banker Name Role Phone Unavailable Unavailable Unavailable Surgery Details Not on file Complications Check Surgery Details section. Procedure Estimated Blood Loss Check Surgery Details section. Procedure Findings Check Surgery Details section. Procedure Specimens Taken Check Surgery Details section.
--- OUTSIDE RECORDS SUMMARY | 2023-12-31 14:10 | XMS_ITS | Clinical Summary ---
Author Name Unknown Organization [place] Address [address] [place] [address] Care Team Providers Care Roughener Name Role Phone Yung Madrigal MD Unavailable Unavailable Winston Villatoro OD Unavailable [phone] Denise Woodson Ra, APRN ANIMAL CARETAKER Unavailable [phone] Denise Woodson Ra, APRN ANIMAL CARETAKER Primary Care Provid er Allergies Active Allergy [...] (FLONASE) 50 MCG/ACT nasal sprayIndications:Chr onic rhinitis [place] 2 sprays into both nostrils daily 16 [...] TD,PF 7+ (Tenivac) 04/05/2003 TDAP (Adacel,Boostrix) 01/04/2021,01/26/2011 Family History Medical History Relation Comments Autoimmune Disease Cousin Cerebrovascular Disease Maternal Grandmother and great maternal grandmother Alzheimer Disease No family hx of Anesthesia Reaction No family hx of Blood Disease No family hx of Breast Cancer No family hx of Cancer No family hx of Cancer - colorectal No family hx of Diabetes No family hx of Heart Disease No family hx of Hypertension No family hx of Thyroid Disease No family hx of reviewed 06/05/20 06 Relation Status Comments Brother Alive x3 Cousin [...] Comments Blood Pressure 108/68 07/27/2021 8:28 AM DOCUMENTATION SUPERVISOR Pulse 68 07/27/2021 8:28 AM DOCUMENTATION SUPERVISOR Temperature 36.9 ??C (98.4 ??F) 07/27/2021 8:28 AM CS T Respiratory Rate 12 07/27/2021 8:28 AM DOCUMENTATION SUPERVISOR Oxygen Saturation 97% 07/27/2021 8:28 AM DOCUMENTATION SUPERVISOR Inhaled Oxygen Concentration - - Weight 99.3 kg (219 lb) 07/27/2021 8:28 AM DOCUMENTATION SUPERVISOR Height 174.6 cm (5' 8.75) 02/08/2021 10:22 AM C DT Body Mass Index 32.58 02/08/2021 10:22 AM CDT Plan of Treatment Upcoming Encounters Date Type Department Care Team (Late st Contact Info) Description 01/15/2024 3:30 PM CDT Office Visit [facility] [address] [place] [id number] Jacque Alexis APRN ANIMAL CARETAKER [address] [place] [address] Health Maintenance Due Date Last Done Comments ADVANCE CARE PLANNING 1976 CT COLONOGRAPHY 1976 FIT 1976 FLEX SIG 1976 sDNA (Cologuard) 1976 COLONOSCOPY 1986 COLORECTAL CANCER SCREENING 1986 HIV SCREENING 1991 HEPATITIS C SCREENING 1994 Pneumococcal Vaccine: Pediatrics (0 to 5 Years) and At-Risk Patients (6 to 64 Years) (2 of 2 - PCV) 03/16/2005 03/16/2004 PHQ-9 12/22/2021 06/23/2021, 12/16, 06/15/2019, Additional history exists ANNUAL REVIEW OF HM ORDERS 01/04/2022 01/04/2021 ASTHMA ACTION PLAN 01/04/2022 01/04/2021, 0 01/04/2021, 06/15/2019 ASTHMA CONTROL TEST 07/25/2022 01/22/2022, 06/23/2021, 01/04/2021, Additional history exists COVID-19 Vaccine ( season) 2023 07/07/2021, 11/20/2020 INFLUENZA VACCINE (#1) 2023 , 06/23/2021, 07/27/2020, Additional history exists YEARLY PREVENTIVE VISIT 01/11/2024 01/11/20 23, 07/27/2021, 07/27/2020, Additional history exists MAMMO SCREENING 04/25/2024 04/25/2022, 11/15, 02/07/2019, Additional history exists GLUCOSE 07/27/2024 07/27/2021, 12/16, 09/28/2020, Additional history exists LIPID 07/27/2026 07/27/2021, 07/17, 03/16/2008 DTAP/TDAP/TD IMMUNIZATION (6 - Td or Tdap) 01/04/2031 01/04/2021, 01/26/2011, 04/05/2003, Additional history exists HEPATITIS B IMMUNIZATION Completed 012, 03/03/2012, 11/07/2011, Additional history exists DEPRESSION ACTION PLAN Completed 01/04/2021, 2020 HPV IMMUNIZATION Aged Out No longer e ligible based on patient's age to complete this topic IPV IMMUNIZATION Aged Out No longer e ligible based on patient's age to complete this topic MENINGITIS IMMUNIZATION Aged Out No l onger eligible based on patient's age to complete this topic PAP Discontinued RSV MONOCLONAL ANTIBODY Aged Out No l onger eligible based on patient's age to complete this topic Procedures Procedure Name Priority Date/Time Associated Diagnosis Comments MA SCREENING BILATERAL W/ FLO Routine 04/25/2022 5:03 PM CDT Visit for screening mammogram COMPREHENSIVE METABOLIC PANEL Routine 07/27/2021 8:57 AM DOCUMENTATION SUPERVISOR Routine general medical examination at a health care facility CARDIOVASCULAR SCREENING; LDL GOAL LESS THAN 160 LIPID REFLEX TO DIRECT LDL PANEL Routine 07/27/2021 8:57 AM DOCUMENTATION SUPERVISOR CARDIOVASCULAR SCREENING; LDL GOAL LESS THAN 160 ASTHMA ACTION PLAN Routine 01/04/2021 9: 09 AM CDT from Last 3 Months or Most Recently Relevant to Health Maintenance Results * MA Screen Bilateral w/Flo (04/25/2022 5:03 PM [...] possibly representing a lymph node. Procedure Note Irma Howell MD - 04/26/2022 [...] to patient. IRMA HOWELL MD Denise Woodson APRN ANIMAL CARETAKER IMG MAMMOGRA PHY ORDERABLES * (ABNORMAL) Lipid panel reflex to direct LDL Fasting (07/27/2021 8:57 AM DOCUMENTATION SUPERVISOR) Cholesterol 202(H) <200 mg/dL 07/28/2021 10:12 AM DOCUMENTATION SUPERVISOR [facility] Triglycerides 91 <150 mg/dL 07/28/2021 10:12 AM DOCUMENTATION SUPERVISOR [facility] Direct Measure HDL 56 >=50 mg/dL 07/28/2021 10:12 AM DOCUMENTATION SUPERVISOR [facility] LDL Cholesterol Calculated 128(H) <=100 mg/dL 07/28/2021 10:12 AM DOCUMENTATION SUPERVISOR [facility] Non HDL Cholesterol 146(H) <130 mg/dL 07/28/2021 10:12 AM DOCUMENTATION SUPERVISOR [facility] Patient Fasting > 8hrs? Yes 07/28/2021 10:12 AM DOCUMENTATION SUPERVISOR [facility] Blood STRUCTURE OF RIGHT UPPER LIMB / Unknown Venipuncture / Unknown 07/27/2021 8:57 AM DOCUMENTATION SUPERVISOR 07/27/2021 8:57 AM DOCUMENTATION SUPERVISOR Narrative [facility] - 07/28/2021 10:12 AM DOCUMENTATION SUPERVISOR Cholesterol Desirable: ??<200 mg/dL Triglycerides Normal: ??Less [...] equal to 220 mg/dL Denise Woodson APRN ANIMAL CARETAKER LAB - BLOOD ORDERABLES [facility] [address] Lab (no room number, 1st floor of clinic) [place] [address], [facility] [phone] * Comprehensive metabolic panel (BMP + Alb, Alk Phos, ALT, AST, Total. Bili, TP) (07/27/2021 8:57 AM DOCUMENTATION SUPERVISOR) Sodium 139 133 - 144 mmol/L 07/28/2021 10:12 AM DOCUMENTATION SUPERVISOR [facility] Potassium 4.0 3.4 - 5.3 mmol/L 07/28/2021 10:12 AM DOCUMENTATION SUPERVISOR [facility] Chloride 105 94 - 109 mmol/L 07/28/2021 10:12 AM DOCUMENTATION SUPERVISOR [facility] Carbon Dioxide (CO2) 26 20 - 32 mmol/L 07/28/2021 10:12 AM DOCUMENTATION SUPERVISOR [facility] Anion Gap 8 3 - 14 mmol/L 07/28/2021 10:12 AM DOCUMENTATION SUPERVISOR [facility] Urea Nitrogen 20 7 - 30 mg/dL 07/28/2021 10:12 AM DOCUMENTATION SUPERVISOR [facility] Creatinine 0.74 0.52 - 1.04 mg/dL 07/28/2021 10:12 AM DOCUMENTATION SUPERVISOR [facility] Calcium 8.8 8.5 - 10.1 mg/dL 07/28/2021 10:12 AM DOCUMENTATION SUPERVISOR [facility] Glucose 95 70 - 99 mg/dL 07/28/2021 10:12 AM DOCUMENTATION SUPERVISOR [facility] Alkaline Phosphatase 67 40 - 150 U/L 07/28/2021 10:12 AM DOCUMENTATION SUPERVISOR [facility] AST 8 0 - 45 U/L 07/28/2021 10:12 AM DOCUMENTATION SUPERVISOR [facility] ALT 18 0 - 50 U/L 07/28/2021 10:12 AM DOCUMENTATION SUPERVISOR [facility] Protein Total 7.6 6.8 - 8.8 g/dL 07/28/2021 10:12 AM DOCUMENTATION SUPERVISOR [facility] Albumin 3.4 3.4 - 5.0 g/dL 07/28/2021 10:12 AM DOCUMENTATION SUPERVISOR [facility] Bilirubin Total 0.5 0.2 - 1.3 mg/dL 07/28/2021 10:12 AM DOCUMENTATION SUPERVISOR [facility] GFR Estimate >90 >60 mL/min/1.7 3m2 07/28/2021 10:12 AM DOCUMENTATION SUPERVISOR [facility] Comment:As of March 26, 2021, eGFR is calculated by the CKD-EPI creatinine equation, without race adjustment. eGFR can be influenced by muscle mass, exercise, and diet. The reported eGFR is an estimation only and is only applicable if the renal function is stable. Blood STRUCTURE OF RIGHT UPPER LIMB / Unknown Venipuncture / Unknown 07/27/2021 8:57 AM DOCUMENTATION SUPERVISOR 07/27/2021 8:57 AM DOCUMENTATION SUPERVISOR Denise Woodson APRN ANIMAL CARETAKER LAB - BLOOD ORDERABLES [facility] [address] Lab (no room number, 1st floor of clinic) [place] [address], [facility] [phone] from Last 3 Months or Most Recently Relevant to Health Maintenance Care Teams Roughener Relationship Specialty Start Date End Date Yung Madrigal MD RETIRED PCP - Orthopaedics Orthopedics 08/26/12 Winston Villatoro OD [facility] [place] [address] [facility] [address] [place] [address] PCP - Ophthalmology Ophthalmology 02/11/13 Denise Woodson Ra, APRN ANIMAL CARETAKER [address] [place] [address] PCP - General Family Practice 09/21/20 Denise Woodson Ra, APRN ANIMAL CARETAKER [address] [place] [address] Assigned PCP 07/17/20
--- OUTSIDE RECORDS SUMMARY | 2023-12-31 14:11 | XMS_ITS | Encounter Summary ---
Author Name Unknown Organization [facility] Address [address] [place] [address]. [place] [address] Care Team Providers Care Medical Examiner Name Role Phone Yung Madrigal MD Unavailable Unavailable Winston Villatoro OD Unavailable [phone] Denise Woodson Ra, APRN CLERICAL ADJUDICATOR Unavailable + [phone] Denise Woodson Ra, APRN CLERICAL ADJUDICATOR Primary Care Provid er Reason for Visit * Reason Onset Date Comments URI 09/21/2020 Encounter Details Date Type Department Care Team (Late st Contact Info) Description 09/21/2020 [facility] [place] [facility] [id number] [place] [address] Denise Woodson Ra, APRN CLERICAL ADJUDICATOR [address] [place] [address] URI Social History Tobacco Use Types Packs/Day Years Used Date Smoking Tobacco: Never Smokeless Tobacco: Never Alcohol Use Standard Drinks/Week Comments Yes 0 (1 standard drink = 0.6 oz pur e alcohol) minimal PHQ-2 Answer Date Recorded PHQ-2 Score 2 07/13/2020 Sex and Gender Information Value Date Recorded Sex Assigned at Not on file Gender Identity Not on file Sexual Orientation Not on file COVID-19 Exposure Response Date Recorded In the last month, have you been in contact with someone who was confirmed or suspected to have Coronavirus / COVID-19? No / Unsure 09/21/2020 12:04 PM [facility] documented as of this encounter Miscellaneous Notes * Telephone Encounter - Kati Yang RN - 09/21/2020 10:54 AM CST [employer] message sent to patient. Kati Yang RN [facility] documented in this encounter Plan of Treatment Upcoming Encounters Date Type Department Care Team (Late st Contact Info) Description 01/15/2024 3:30 PM CDT [facility] [address] [place] [address] Jacque Alexis APRN CLERICAL ADJUDICATOR [address] [place], [place] [id number] documented as of this encounter Visit Diagnoses Not on filedocumented in this encounter Additional Health Concerns Assessment Noted Time PHQ-9 Depression Total Score: 0 06/15/20 19 7:09 PM CDT documented as of this encounter Care Teams Medical Examiner Relationship Specialty Start Date End Date Yung Madrigal MD RETIRED PCP - Orthopaedics Orthopedics 08/26/12 Winston Villatoro OD [facility] [place] [address] [facility] [address] [place] [address] PCP - Ophthalmology Ophthalmology 02/11/13 Denise Woodson Ra, APRN CLERICAL ADJUDICATOR [address] [address] [address] PCP - General Family Practice 09/21/20 Denise Woodson Ra, APRN CLERICAL ADJUDICATOR [address] [address] [id number] Assigned PCP 07/17/20 documented as of this encounter
--- OUTSIDE RECORDS SUMMARY | 2023-12-31 14:11 | XMS_ITS | Encounter Summary ---
Author Name Unknown Organization [place] Address [address] [place] [address] Care Team Providers Care Diaper Folder Name Role Phone Timmy Perez MD Unavailable Unavailable Yung Madrigal MD Unavailable Unavailable Winston Villatoro OD Unavailable [phone] Apple Sykes MD Primary Care Provider [phone] Westley Bates MD Unavailable [phone] Alessandra Cabrales APRN LEADITE HEATER Primary Car e Provider Serum, Clara Garland MD Primary Care Provider Serum, Clara Garland MD Unavailable [phone] Serum, Clara Garland MD Unavailable [phone] Denise Woodson Ra, APRN LEADITE HEATER Unavailable + [phone] Denise Woodson Ra, APRN, CNP Primary Care Provid er Encounter Details Date Type Department Care Team (Late st Contact Info) Description 05/19/2013 MyC Medical Advice [facility] [place] [facility] [address] [place] [phone] Yung Madrigal MD RETIRED Social History Tobacco Use Types Packs/Day Years Used Date Smoking Tobacco: Never Smokeless Tobacco: Never Alcohol Use Standard Drinks/Week Comments Yes 0 (1 standard drink = 0.6 oz pur e alcohol) minimal Sex and Gender Information Value Date Recorded Sex Assigned at Not on file Gender Identity Not on file Sexual Orientation Not on file documented as of this encounter Plan of Treatment Upcoming Encounters Date Type Department Care Team (Late st Contact Info) Description 01/15/2024 3:30 PM CDT Office Visit [facility] [address] [place] [address] Jacque Alexis APRN LEADITE HEATER [address] [place] [address] documented as of this encounter Visit Diagnoses Not on filedocumented in this encounter Care Teams Diaper Folder Relationship Specialty Start Date End Date Timmy Perez MD PCP - Obstetrics/Gynecology 03/02/08 08/07/15 Yung Madrigal MD RETIRED PCP - Orthopaedics Orthopedics 08/26/12 Winston Villatoro OD [facility] [place] [address] [place] [address] PCP - Ophthalmology Ophthalmology 02/11/13 Apple Sykes MD [facility] [place] [address] [place] [address] PCP - General Family Practice 05/04/13 10/25/16 Westley Bates MD XXX RETIRED [place] [address] [place] [address] PCP - ENT Otolaryngology 05/14/13 07/28/18 Alessandra Cabrales APRN LEADITE HEATER [address] [facility] [place] [address] PCP - General Nurse Practitioner 10/26/16 02/06/17 Clara Cornell MD [address] [facility] [place] [address] PCP - General Internal Medicine 02/07/17 09/20/20 Clara Cornell MD [address] [place] [address] PCP - Assigned PCP 01/17/17 11/18/18 Denise Woodson Ra, APRN LEADITE HEATER [address] [place] [address] PCP - General Family Practice 09/21/20 Clara Cornell MD [address] [place] [address] Assigned PCP 01/17/17 07/16/20 Denise Woodson Ra, APRN LEADITE HEATER [address] [place] [address] Assigned PCP 07/17/20 documented as of this encounter
--- OUTSIDE RECORDS SUMMARY | 2023-12-31 14:11 | XMS_ITS | Encounter Summary ---
Author Name Unknown Organization [place] Address [address] [place] [address] Care Team Providers Care Timber Poisoner Name Role Phone Yung Madrigal MD Unavailable Unavailable Winston Villatoro OD Unavailable [phone] Serum, Clara Garland MD Primary Care Provider Serum, Clara Garland MD Unavailable [phone] Denise Woodson Ra, APRN CHARGE AUDITOR Unavailable [phone]- [phone] Denise Woodson Ra, APRN CHARGE AUDITOR Primary Care Provid er Encounter Details Date Type Department Care Team (Late st Contact Info) Description 06/16/2019 MyC Medical Advice [address] [place] [address] Serum, Clara Garland MD [address] [place] [address] Social History Tobacco Use Types Packs/Day Years Used Date Smoking Tobacco: Never Smokeless Tobacco: Never Alcohol Use Standard Drinks/Week Comments Yes 0 (1 standard drink = 0.6 oz pur e alcohol) minimal PHQ-2 Answer Date Recorded PHQ-2 Score 0 09/23/2018 Sex and Gender Information Value Date Recorded Sex Assigned at Not on file Gender Identity Not on file Sexual Orientation Not on file documented as of this encounter Plan of Treatment Upcoming Encounters Date Type Department Care Team (Late st Contact Info) Description 01/15/2024 3:30 PM CDT Office Visit [address] [address] Jacque Alexis APRN CHARGE AUDITOR [address] [place] [address] documented as of this encounter Visit Diagnoses Not on filedocumented in this encounter Additional Health Concerns Assessment Noted Time PHQ-9 Depression Total Score: 0 06/15/20 19 7:09 PM CDT documented as of this encounter Care Teams Timber Poisoner Relationship Specialty Start Date End Date Yung Madrigal MD RETIRED PCP - Orthopaedics Orthopedics 08/26/12 Winston Villatoro OD [facility] [place] [address] [place] [address] PCP - Ophthalmology Ophthalmology 02/11/13 Clara Cornell MD [facility] [place] [address] [place] [address] PCP - General Internal Medicine 02/07/17 09/20/20 Denise Woodson Ra, APRN CHARGE AUDITOR [address] [place] [address] PCP - General Family Practice 09/21/20 Clara Cornell MD [address] [place] [address] Assigned PCP 01/17/17 07/16/20 Denise Woodson Ra, APRN CHARGE AUDITOR [address] [place] [address] Assigned PCP 07/17/20 documented as of this encounter
--- OUTSIDE RECORDS SUMMARY | 2023-12-31 14:11 | XMS_ITS | Encounter Summary ---
Author Name Unknown Organization [place] Address [address] [place] [address]. [place] [address] Care Team Providers Care Automobile Service Station Attendant Name Role Phone Yung Madrigal MD Unavailable Unavailable Winston Villatoro OD Unavailable Denise Woodson Ra, APRN CUSTOMER ASSISTANT Unavailable Denise Woodson Ra, APRN CUSTOMER ASSISTANT Primary Care Provid er Reason for Visit * Reason Comments Medication Refill Encounter Details Date Type Department Care Team (Late st Contact Info) Description [facility] [address] [place] [address] Denise Woodson Ra, APRN CUSTOMER ASSISTANT [address] [place] [address] Medication Refill Social History Tobacco Use Types Packs/Day Years [...] encounter Miscellaneous Notes * Telephone Encounter - Karla Morales P - 01/24/2023 7:21 AM CDT Mailed Letter as final attempt to schedule. Karla Velasquez Records Administrator * Telephone Encounter - Karla Morales - 01/17/2023 8:59 AM CDT LVM requesting a call back for an appt (physical). One more attempt will be made. Karla Morales [place] Records Administrator * Telephone Encounter - Arianna Lo - 01/10/2023 3:33 PM CDT Sent Audio Network message requesting a call back for an appt. Two more attempts will be made. Arianna Lo [place] Records Administrator * Telephone Encounter - Leslie Mcclellan RN - 01/10/2023 10:45 AM CDT Routing refill request to provider for review/approval because: Patient needs to be seen because it has been more than 1 year since last office visit. ACT outdated. 01/04/2021 9:30 AM 06/23/2021 4:10 PM 01/22/2022 5:20 PM ACT Total Scores ACT TOTAL SCORE (Goal Greater than or Equal to 20) 24 21 22 In the past 12 months, how many times did you visit the emergency room for your asthma without being admitted to the hospital? 0 0 0 In the past 12 months, how many times were you hospitalized overnight because of your asthma? 0 0 0 Leslie Mcclellan RN, BSN [facility] documented in this encounter Plan of Treatment Upcoming Encounters Date Type Department Care Team (Late st Contact Info) Description 01/15/2024 3:30 PM CDT Office Visit [facility] [address] [place] [address] Jacque Alexis APRN CUSTOMER ASSISTANT [address] [place] [address] documented as of this encounter Visit Diagnoses Diagnosis Moderate persistent asthma without complication Unspecified asthma documented in this encounter Additional Health Concerns Assessment Noted Time PHQ-9 Depression Total Score: 0 06/23/20 21 4:11 PM CDT documented as of this encounter Care Teams Automobile Service Station Attendant Relationship Specialty Start Date End Date Yung Madrigal MD RETIRED PCP - Orthopaedics Orthopedics 08/26/[address] [facility] [place] [address] [place] [address] PCP - Ophthalmology Ophthalmology 02/11/13 Denise Woodson Ra, APRN CUSTOMER ASSISTANT [address] [place] [address] PCP - General Family Practice 09/21/20 Denise Woodson Ra, APRN CUSTOMER ASSISTANT [address] [place] [address] Assigned PCP 07/17/20 documented as of this encounter
--- OUTSIDE RECORDS SUMMARY | 2023-12-31 14:11 | XMS_ITS | Encounter Summary ---
Author Name Unknown Organization [place] Address [address] [place] [address] Care Team Providers Care Stick Welder Name Role Phone Yung Madrigal MD Unavailable Unavailable Winston Villatoro OD Unavailable [phone] Serum, Clara Garland MD Primary Care Provider Serum, Clara Garland MD Unavailable [phone] Denise Woodson Ra, APRN CORSET FITTER Unavailable +- [phone] Denise Woodson Ra, APRN CORSET FITTER Primary Care Provid er Reason for Visit * Reason Onset Date Comments LAB REQUEST 06/16/2019 Encounter Details Date Type Department Care Team (Late st Contact Info) Description 06/16/2019 [facility] Medical Advice [address] [place] [address] Serum, Clara Garland MD [address] [place] [address] LAB REQUEST Social History Tobacco Use Types Packs/Day Years [...] encounter Miscellaneous Notes * Telephone Encounter - Genet Holcomb RN - 06/16/2019 4:17 PM CDT See Toldot message regarding yesterday's appointment. Patient requesting to check TSH and antibodies for pt reported possible yonas's. Pended TSH for provider review. documented in this encounter Plan of Treatment Upcoming Encounters Date Type Department Care Team (Late st Contact Info) Description 01/15/2024 3:30 PM CDT Office Visit [facility] [address] [place] [address] Jacque Alexis APRN CORSET FITTER [address] [place] [address] documented as of this encounter Results * Follicle stimulating hormone (06/22/2019 3:36 PM CDT) FSH 9.5 IU/L 06/23/2019 2:32 PM CDT [facility] Comment: FSH Reference Range Female: Follicular ?2.5-10.2 ?Mid-cycle ? 3.4-33.4 ?Luteal ?1.5-9.1 ?Postmenopausal ??23.0-116.3 Blood specimen (specimen) 06/22/2019 3:36 PM CDT 06/22/2019 3:37 PM CDT Clara Cornell MD LAB - BLOOD ORD ERABLES [facility] [address] [place] [address] * TSH with free T4 reflex FUTURE anytime (06/22/2019 3:36 PM CDT) TSH 3.30 0.40 - 4.00 mU/L 06/23/2019 3:12 PM CDT [facility] Blood specimen (specimen) 06/22/2019 3:36 PM CDT 06/22/2019 3:37 PM CDT Clara Cornell MD LAB - BLOOD ORD ERABLES [facility] [address] [place] [address] documented in this encounter Visit Diagnoses Diagnosis Anti-TPO antibodies present- Primary Other and unspecified nonspecific immunological findings Excessive sweating Generalized hyperhidrosis documented in this encounter Additional Health Concerns Assessment Noted Time PHQ-9 Depression Total Score: 0 06/15/20 19 7:09 PM CDT documented as of this encounter Care Teams Stick Welder Relationship Specialty Start Date End Date Yung Madrigal MD RETIRED PCP - Orthopaedics Orthopedics 08/26/12 Winston Villatoro OD [facility] [place] [address] [place] [address] PCP - Ophthalmology Ophthalmology 02/11/13 Clara Cornell MD [facility] [place] [address] [place] [address] PCP - General Internal Medicine 02/07/17 09/20/20 Denise Woodson Ra, APRN CORSET FITTER [address] [place] [address] PCP - General Family Practice 09/21/20 Clara Cornell MD [address] [place] [address] Assigned PCP 01/17/17 07/16/20 Denise Woodson Ra, APRN CORSET FITTER [address] [place] [address] Assigned PCP 07/17/20 documented as of this encounter
--- OUTSIDE RECORDS SUMMARY | 2023-12-31 14:11 | XMS_ITS | Encounter Summary ---
Author Name Unknown Organization [place] Address [address] [place] [address] Care Team Providers Care Assayer Name Role Phone Timmy Perez MD Unavailable Unavailable Encounter Details Date Type Department Care Team (Late st Contact Info) Description 01/17/2012 3:20 PM CDT [facility] in [address] [phone] Luis Walsh [address] [place] [address] Interface, MD [place] Social History Tobacco Use Types Packs/Day Years [...] Description 01/15/2024 3:30 PM CDT [facility] [address] [place] [phone] Jacque Alexis APRN [facility] [address] [place] [address] documented as of this encounter Visit Diagnoses Not on filedocumented in this encounter Care Teams Assayer Relationship Specialty Start Date End Date Timmy Perez MD PCP - Obstetrics/Gynecology 03/02/0807/18 documented as of this encounter
--- OUTSIDE RECORDS SUMMARY | 2023-12-31 14:11 | XMS_ITS | Encounter Summary ---
Author Name Unknown Organization [place] Address [address] [place] [address] Care Team Providers Care Corporate Manager Name Role Phone Timmy Perez MD Unavailable Unavailable Yung Madrigal MD Unavailable Unavailable Frw, None Primary Care Provider Unavailabl e Winston Villatoro OD Unavailable [phone] Apple Sykes MD Primary Care Provider [phone] Westley Bates MD Unavailable [phone] Alessandra Cabrales APRN POCKET MAKER Primary Car e Provider Serum, Clara Garland MD Primary Care Provider Serum, Clara Garland MD Unavailable [phone] Serum, Clara Garland MD Unavailable [phone] Denise Woodsno Ra, APRN POCKET MAKER Unavailable [phone] Denise Woodson Ra, APRN POCKET MAKER Primary Care Provid er Encounter Details Date Type Department Care Team (Late st Contact Info) Description 01/31/2006 [facility] [place] [address] [place] [phone] Timmy Perez MD Social History Tobacco Use Types Packs/Day Years [...] Description 01/15/2024 3:30 PM CDT Office Visit [facility] [address] [place] [address] Jacque Alexis APRN POCKET MAKER [address] [place] [address] documented as of this encounter Visit Diagnoses Not on filedocumented in this encounter Care Teams Corporate Manager Relationship Specialty Start Date End Date Timmy Perez MD PCP - Obstetrics/Gynecology 03/02/08 08/07/15 Yung Madrigal MD RETIRED PCP - Orthopaedics Orthopedics 08/26/12 Frw, None PCP - General Family Practice 08/26/12 05/03/13 Winston Villatoro OD [facility] [place] [address] [place] [address] PCP - Ophthalmology Ophthalmology 02/11/13 Apple Sykes MD [facility] [place] [address] [place] [address] PCP - General Family Practice 05/04/13 10/25/16 Westley Bates MD [place] [address] [place] [address] PCP - ENT Otolaryngology 05/14/13 07/28/18 Alessandra Cabrales APRN POCKET MAKER [address] [facility] [place] [address] PCP - General Nurse Practitioner 10/26/16 02/06/17 Clara Cornell MD [address] [facility] [place] [address] PCP - General Internal Medicine 02/07/17 09/20/20 Clara Cornell MD [address] [place] [address] PCP - Assigned PCP 01/17/17 11/18/18 Denise Woodson Ra, APRN POCKET MAKER [address] [place] [address] PCP - General Family Practice 09/21/20 Clara Cornell MD [address] [place] [address] Assigned PCP 01/17/17 07/16/20 Denise Woodson Ra, APRN POCKET MAKER [address] [place] [address] Assigned PCP 07/17/20 documented as of this encounter
--- OUTSIDE RECORDS SUMMARY | 2023-12-31 14:11 | XMS_ITS | Encounter Summary ---
Author Name Unknown Organization [place] Address [address] [place] [address] Care Team Providers Care Senior Application Security Consultant Name Role Phone Yung Madrigal MD Unavailable Unavailable Winston Villatoro OD Unavailable [phone] Denise Woodson Ra, APRN RESOURCE RECOVERY SPECIALIST Unavailable + [phone] Denise Woodson Ra, APRN RESOURCE RECOVERY SPECIALIST Primary Care Provid er Encounter Details Date Type Department Care Team (Late Contact Info) Description 12/30/2020 [facility] [address] [place] [address] Jessica Phipps, BIBI Social History Tobacco Use Types Packs/Day Years [...] have Coronavirus / COVID-19? No / Unsure 12/07/2020 3:58 PM CDT documented as of this encounter Plan of Treatment Upcoming Encounters Date Type Department Care Team (Late Contact Info) Description 01/15/2024 3:30 PM CDT Office Visit [facility] [place] [address] [place] [address] Jacque Alexis APRN RESOURCE RECOVERY SPECIALIST [address] [place] [address] documented as of this encounter Visit Diagnoses Not on filedocumented in this encounter Additional Health Concerns Assessment Noted Time PHQ-9 Depression Total Score: 0 06/15/20 19 7:09 PM CDT documented as of this encounter Care Teams Senior Application Security Consultant Relationship Specialty Start Date End Date Yung Madrigal MD RETIRED PCP - Orthopaedics Orthopedics 08/26/12 Winston Villatoro OD [facility] [place] [address] [facility] [address] [place] [address] PCP - Ophthalmology Ophthalmology 02/11/13 Denise Woodson Ra, APRN RESOURCE RECOVERY SPECIALIST [address] [place] [address] PCP - General Family Practice 09/21/20 Denise Woodson Ra, APRN RESOURCE RECOVERY SPECIALIST [address] [place] [address] Assigned PCP 07/17/20 documented as of this encounter
--- OUTSIDE RECORDS SUMMARY | 2023-12-31 14:11 | XMS_ITS | Encounter Summary ---
Author Name Unknown Organization [place] Address [address] [place] [address]. [place] [address] Care Team Providers Care Outside Production Inspector Name Role Phone Yung Madrigal MD Unavailable Unavailable Winston Villatoro OD Unavailable [phone] Denise Woodson Ra, APRN GOVERNMENT INSTRUCTOR Unavailable Denise Woodson Ra, APRN GOVERNMENT INSTRUCTOR Primary Care Provid er Reason for Visit * Reason Onset Date Comments MyChart Communication 06/08/2021 Abdominal pain Encounter Details Date Type Department Care Team (Late Contact Info) Description 06/08/2021 MyC Medical Advice [facility] [place] [address] [place] [address] Denise Woodson Ra, APRN GOVERNMENT INSTRUCTOR [address] [place] [address] MyChart Communication (Abdominal pain) Social History Tobacco Use Types Packs/Day Years Used Date Smoking Tobacco: Never Smokeless Tobacco: Never Alcohol Use Standard Drinks/Week Comments Not Currently 0 (1 standard drink = 0.6 oz pur e alcohol) minimal PHQ-2 Answer Date Recorded PHQ-2 Score 0 01/04/2021 Sex and Gender Information Value Date Recorded Sex Assigned at Not on file Gender Identity Not on file Sexual Orientation Not on file documented as of this encounter Plan of Treatment Upcoming Encounters Date Type Department Care Team ([facility] Contact Info) Description 01/15/2024 3:30 PM CDT Office Visit [facility] [place] [address] [place] [address] Jacque Alexis APRN GOVERNMENT INSTRUCTOR [address] [place] [address] documented as of this encounter Visit Diagnoses Not on filedocumented in this encounter Additional Health Concerns Assessment Noted Time PHQ-9 Depression Total Score: 0 01/05/20 21 9:31 AM CDT documented as of this encounter Care Teams Outside Production Inspector Relationship Specialty Start Date End Date Yung Madrigal MD RETIRED PCP - Orthopaedics Orthopedics 08/26/12 Winston Villatoro OD [facility] [place] [address] [facility] [address] [place] [address] PCP - Ophthalmology Ophthalmology 02/11/13 Denise Woodson Ra, APRN GOVERNMENT INSTRUCTOR [address] [place] [address] PCP - General Family Practice 09/21/20 Denise Woodson Ra, APRN GOVERNMENT INSTRUCTOR [address] [place] [address] Assigned PCP 07/17/20 documented as of this encounter
--- OUTSIDE RECORDS SUMMARY | 2023-12-31 14:11 | XMS_ITS | Encounter Summary ---
Author Name Unknown Organization [place] Address [address] [place] [address] Care Team Providers Care Turning Sander Tender Name Role Phone Yung Madrigal MD Unavailable Unavailable Winston Villatoro OD Unavailable [phone] Serum, Clara Garland MD Primary Care Provider Serum, Clara Garland MD Unavailable [phone] Denise Woodson Ra, APRN SUPERVISOR BOILER REPAIR Unavailable [phone] Denise Woodson Ra, APRN SUPERVISOR BOILER REPAIR Primary Care Provid er Encounter Details Date Type Department Care Team (Late st Contact Info) Description 01/21/2019 MyC Medical Advice [address] [place] [phone] [facility] Social History Tobacco Use Types Packs/Day Years [...] Description 01/15/2024 3:30 PM CDT Office Visit [facility] [address] [place] [phone] Jacque Alexis APRN SUPERVISOR BOILER REPAIR [address] [place] [address] documented as of this encounter Visit Diagnoses Not on filedocumented in this encounter Additional Health Concerns Assessment Noted Time PHQ-9 Depression Total Score: 0 02/09/20 17 7:29 AM CDT documented as of this encounter Care Teams Turning Sander Tender Relationship Specialty Start Date End Date Yung Madrigal MD RETIRED PCP - Orthopaedics Orthopedics 08/26/12 Winston Villatoro OD [facility] [place] [address] [place] [address] PCP - Ophthalmology Ophthalmology 02/11/13 Clara Cornell MD [facility] [place] [address] [place] [address] PCP - General Internal Medicine 02/07/17 09/20/20 Denise Woodson Ra, APRN SUPERVISOR BOILER REPAIR [address] [place] [address] PCP - General Family Practice 09/21/20 Clara Cornell MD [address] [place] [address] Assigned PCP 01/17/17 07/16/20 Denise Woodson Ra, APRN SUPERVISOR BOILER REPAIR [address] [place] [address] Assigned PCP 07/17/20 documented as of this encounter
--- OUTSIDE RECORDS SUMMARY | 2023-12-31 14:11 | XMS_ITS | Encounter Summary ---
Author Name Unknown Organization [place] Address [address] [place] [address] Care Team Providers Care Life Skills Consultant Name Role Phone Yung Madrigal MD Unavailable Unavailable Winston Villatoro OD Unavailable [phone] Denise Woodson Ra, APRN FACULTY RESEARCH ASSISTANT Unavailable + [phone] Denise Woodson Ra, APRN FACULTY RESEARCH ASSISTANT Primary Care Provid er Encounter Details Date Type Department Care Team (Late Contact Info) Description 01/22/2022 [facility] [address] [place] [address] Angelo Escobar Social History Tobacco Use Types Packs/Day Years [...] encounter Miscellaneous Notes * Telephone Encounter - Tran Castro RN - 01/22/2022 5:19 PM CDT documented in this encounter Plan of Treatment Upcoming Encounters Date Type Department Care Team (Late Contact Info) Description 01/15/2024 3:30 PM CDT [facility] [address] [place] [address] Jacque Alexis APRN FACULTY RESEARCH ASSISTANT [address] [place] [address] documented as of this encounter Visit Diagnoses Not on filedocumented in this encounter Additional Health Concerns Assessment Noted Time PHQ-9 Depression Total Score: 0 06/23/20 21 4:11 PM CDT documented as of this encounter Care Teams Life Skills Consultant Relationship Specialty Start Date End Date Yung Madrigal MD RETIRED PCP - Orthopaedics Orthopedics 08/26/12 Winston Villatoro OD [facility] [place] [address] [facility] [address] [place] [address] PCP - Ophthalmology Ophthalmology 02/11/13 Denise Woodson Ra, APRN FACULTY RESEARCH ASSISTANT [address] [facility] [place] [address] PCP - General Family Practice 09/21/20 Denise Woodson Ra, APRN FACULTY RESEARCH ASSISTANT [address] [facility] [place] [address] Assigned PCP 07/17/20 documented as of this encounter
--- OUTSIDE RECORDS SUMMARY | 2023-12-31 14:11 | XMS_ITS | Encounter Summary ---
Author Name Unknown Organization [place] Address [address] [place] [address]. [place] [address] Care Team Providers Care Database Marketing Manager Name Role Phone Yung Madrigal MD Unavailable Unavailable Winston Villatoro OD Unavailable [phone] Denise Woodson Ra, APRN FOOTWEAR SALES ASSOCIATE Unavailable Denise Woodson Ra, APRN FOOTWEAR SALES ASSOCIATE Primary Care Provid er Reason for Visit * Reason Onset Date Comments Medication Request 04/20/2021 escitalopram (LEXAPRO) 10 MG tablet Encounter Details Date Type Department Care Team (Late st Contact Info) Description 04/20/2021 MyC Medical Advice [facility] [id number] [place] [address] Denise Woodson Ra, APRN FOOTWEAR SALES ASSOCIATE [address] [place] [address] Medication Request (escitalopram (LEXAPRO)... Social History Tobacco Use Types Packs/Day Years [...] encounter Miscellaneous Notes * Telephone Encounter - Angelo Escobar - 04/21/2021 10:40 AM CDT lvm to call clinic. See message, patient should make appt for refill. * Telephone Encounter - Miah Shelton PA-C - 04/21/2021 10:12 AM CDT Lets reach out to patient and have her set up virtual visit with Denise in the next few weeks. If she needs I will give small referral in the meantime * Telephone Encounter - Kati Yang RN - 04/21/2021 9:07 AM CDT Patient ok to wait until Denise returns on Saturday. Kati Yang RN * Telephone Encounter - Casandra Staples MD - 04/20/2021 5:32 PM CDT Please triage and see what is up. Also see if it can wait until Saturday for Denise to address if she is requesting this. Thanks! * Telephone Encounter - Kati Yang RN - 04/20/2021 4:54 PM CDT escitalopram (LEXAPRO) 10 MG tablet Last Written Prescription Date: 07/13/2020 Last Fill Quantity: 90, # refills: 0 Last office visit: 01/04/2021 with prescribing provider: Denise Woodson Future Office Visit: Alcon Zamora October 20, 2020?? 10:25 AM Hi, I am no longer taking the meds. I stopped mid September. Usually June to August are the months I take them. I am doing well off of the med. Alcon documented in this encounter Plan of Treatment Upcoming Encounters Date Type Department Care Team (Late st Contact Info) Description 01/15/2024 3:30 PM CDT [facility] [address] [place] [address] Jacque Alexis APRN FOOTWEAR SALES ASSOCIATE [address] [place] [address] documented as of this encounter Visit Diagnoses Diagnosis Generalized anxiety disorder Mild recurrent major depression (H24) Major depressive disorder, recurrent episode, mild documented in this encounter Additional Health Concerns Assessment Noted Time PHQ-9 Depression Total Score: 0 01/05/20 21 9:31 AM CDT documented as of this encounter Care Teams Database Marketing Manager Relationship Specialty Start Date End Date Yung Madrigal MD RETIRED PCP - Orthopaedics Orthopedics 08/26/12 Winston Villatoro OD [facility] [place] [address] [facility] [address] [place] [address] PCP - Ophthalmology Ophthalmology 02/11/13 Denise Woodson Ra, APRN FOOTWEAR SALES ASSOCIATE [address] [place] [address] PCP - General Family Practice 09/21/20 Denise Woodson Ra, APRN FOOTWEAR SALES ASSOCIATE [address] [place] [address] Assigned PCP 07/17/20 documented as of this encounter
--- OUTSIDE RECORDS SUMMARY | 2023-12-31 14:11 | XMS_ITS | Encounter Summary ---
Author Name Unknown Organization [place] Address [address] [place] [address] Care Team Providers Care Route Sales Driver Name Role Phone Timmy Perez MD Unavailable Unavailable Yung Madrigal MD Unavailable Unavailable Frw, None Primary Care Provider Unavailrigoberto e Winston Villatoro OD Unavailable [phone] Apple Sykes MD Primary Care Provider [phone] Westley Baets MD Unavailable [phone] GeorginaAlessandra Gómez APRN SOCIETY EDITOR Primary Car e Provider Serum, Clara Garland MD Primary Care Provider Serum, Clara Garland MD Unavailable [phone] Serum, Clara Garland MD Unavailable [phone] Denise Woodson Ra, APRN SOCIETY EDITOR Unavailable + [phone] Denise Woodson Ra, APRN SOCIETY EDITOR Primary Care Provid er Encounter Details Date Type Department Care Team (Late st Contact Info) Description 01/30/2006 [facility] [place] Inpatient Dept [address] [place] [phone] Frw, Inpatient Provider Social History Tobacco Use Types Packs/Day [...] as of this encounter Progress Notes * Timmy Perez - 02/01/2006 2:41 PM CDTPROCEDURE/OPERATIVE REPORT Date of Procedure: 01/30/06 PREOPERATIVE DIAGNOSES: 1. Dysmenorrhea. 2. Excessive menses. 3. Dyspareunia. 4. Pelvic pain. POSTOPERATIVE DIAGNOSIS: 1. Dysmenorrhea. 2. Excessive menses. 3. Dyspareunia. 4. Pelvic pain. PROCEDURE: TOTAL VAGINAL HYSTERECTOMY. SURGEON: Chris OR DIRECTOR: Radha ANESTHESIA: Spinal ESTIMATED BLOOD LOSS: 100 [...] recovery room awake and in good condition. Tanisha EdwardsS/bianca cc: documented in this encounter Plan of Treatment Upcoming Encounters Date Type Department Care Team (Late st Contact Info) Description 01/15/2024 3:30 PM CDT [facility] [address] [place] [address] Jacque Alexis APRN SOCIETY EDITOR [address] [place] [address] documented as of this encounter Visit Diagnoses Not on filedocumented in this encounter Care Teams Route Sales Driver Relationship Specialty Start Date End Date Timmy Perez MD PCP - Obstetrics/Gynecology 03/02/08 08/07/15 Yung Madrigal MD RETIRED PCP - Orthopaedics Orthopedics 08/26/12 Frw, None PCP - General Family Practice 08/26/12 05/03/13 Winston Villatoro, OD [facility] [place] [address] [place] [address] PCP - Ophthalmology Ophthalmology 02/11/13 Apple Sykes MD [facility] [place] [address] [place] [address] PCP - General Family Practice 05/04/13 10/25/16 Westley Bates MD XXX RETIRED XXX [address] [place] [address] PCP - ENT Otolaryngology 05/14/13 07/28/18 Alessandra Cabrales APRN SOCIETY EDITOR [address] [facility] [place] [address] PCP - General Nurse Practitioner 10/26/16 02/06/17 Clara Cornell MD [address] [facility] [place] [address] PCP - General Internal Medicine 02/07/17 09/20/20 Clara Cornell MD [address] [place] [address] PCP - Assigned PCP 01/17/17 11/18/18 Denise Woodson Ra, APRN SOCIETY EDITOR [address] [place] [address] PCP - General Family Practice 09/21/20 Clara Cornell MD [address] [place] [address] Assigned PCP 01/17/17 07/16/20 Denise Woodson Ra, APRN SOCIETY EDITOR [address] [place] [address] Assigned PCP 07/17/20 documented as of this encounter
--- OUTSIDE RECORDS SUMMARY | 2023-12-31 14:11 | XMS_ITS | Encounter Summary ---
Author Name Unknown Organization [place] Address [address] [place] [address]. [place] [address] Care Team Providers Care Digital Press Operator Name Role Phone Yung Madrigal MD Unavailable Unavailable Winston Villatoro OD Unavailable Denise Woodson Ra, APRN MEDIA RELATIONS SPECIALIST Unavailable + [phone] Denise Woodson Ra, APRN MEDIA RELATIONS SPECIALIST Primary Care Provid er Reason for Visit * Reason Comments Medication Refill Encounter Details Date Type Department Care Team (Late st Contact Info) Description 02/19/2022 Refill [facility] [address] [place] [address] Denise Woodson Ra, APRN MEDIA RELATIONS SPECIALIST [address] [place] [address] Medication Refill Social History Tobacco [...] encounter Miscellaneous Notes * Telephone Encounter - Shawna Barlow RN - [...] Description 01/15/2024 3:30 PM CDT Office Visit [facility] [address] [facility] [place] [address] Jacque Alexis APRN MEDIA RELATIONS SPECIALIST [address] [place] [address] documented as of this encounter Visit Diagnoses Diagnosis Moderate persistent asthma without complication Unspecified asthma documented in this encounter Additional Health Concerns Assessment Noted Time PHQ-9 Depression Total Score: 0 06/23/20 21 4:11 PM CDT documented as of this encounter Care Teams Digital Press Operator Relationship Specialty Start Date End Date Yung Madrigal MD RETIRED PCP - Orthopaedics Orthopedics 08/26/12 Winston Villatoro OD [facility] [address] [facility] [address] [place] [address] PCP - Ophthalmology Ophthalmology 02/11/13 Denise Woodson Ra, APRN MEDIA RELATIONS SPECIALIST [address] [place] [address] PCP - General Family Practice 09/21/20 Denise Woodson Ra, APRN MEDIA RELATIONS SPECIALIST [address] [place] [address] Assigned PCP 07/17/20 documented as of this encounter
--- OUTSIDE RECORDS SUMMARY | 2023-12-31 14:11 | XMS_ITS | Encounter Summary ---
Author Name Unknown Organization [place] Address [address] [place] [address] Care Team Providers Care Dedenter Name Role Phone Timmy Perez MD Unavailable Unavailable Yung Madrigal MD Unavailable Unavailable Winston Villatoro OD Unavailable [phone] Apple Sykes MD Primary Care Provider [phone] Westley Bates MD Unavailable [phone] Alessandra Cabrales APRN CONTRACTING OFFICER Primary Car e Provider Serum, Clara Garland MD Primary Care Provider Serum, Clara Garland MD Unavailable Serum, Clara Garland MD Unavailable Denise Woodson Ra, APRN CONTRACTING OFFICER Unavailable [phone] Denise Woodson Ra, APRN, CNP Primary Care Provid er Reason for Visit * Reason Onset Date Comments MyChart Communication 05/30/2013 Encounter Details Date Type Department Care Team (Latest Contact Info) Description 05/30/2013 MyC Medical Advice [facility] in [facility] [address] [place] [address] Apple Sykes MD [address] [place] [address] MyChart Communication Social History Tobacco Use Types Packs/Day Years [...] Description 01/15/2024 3:30 PM CDT Office Visit [facility] [address] [place] [address] Jacque Alexis APRN CONTRACTING OFFICER [address] [place] [address] documented as of this encounter Visit Diagnoses Not on filedocumented in this encounter Care Teams Dedenter Relationship Specialty Start Date End Date Timmy Perez MD PCP - Obstetrics/Gynecology 03/02/08 08/07/15 Yung Madrigal MD RETIRED PCP - Orthopaedics Orthopedics 08/26/12 Winston Villatoro OD [facility] [place] [address] [place] [address] PCP - Ophthalmology Ophthalmology 02/11/13 Apple Sykes MD [facility] [place] [address] [place] [address] PCP - General Family Practice 05/04/13 10/25/16 Westley Bates MD XXX RETIRED XXX [address] [place] [address] PCP - ENT Otolaryngology 05/14/13 07/28/18 Alessandra Cabrales APRN CONTRACTING OFFICER [address] [place] [address] [place] [address] PCP - General Nurse Practitioner 10/26/16 02/06/17 Clara Cornell MD [address] [facility] [place] [address] PCP - General Internal Medicine 02/07/17 09/20/20 Clara Cornell MD [address] [place] [address] PCP - Assigned PCP 01/17/17 11/18/18 Denise Woodson Ra, APRN CONTRACTING OFFICER [address] [place] [address] PCP - General Family Practice 09/21/20 Clara Cornell MD [address] [facility] [place] [place] [address] Assigned PCP 01/17/17 07/16/20 Denise Woodson Ra, APRN CONTRACTING OFFICER [address] [place] [address] Assigned PCP 07/17/20 documented as of this encounter
--- OUTSIDE RECORDS SUMMARY | 2023-12-31 14:11 | XMS_ITS | Encounter Summary ---
Author Name Unknown Organization [place] Address [address] [place] [address]. [place] [address] Care Team Providers Care Radio Engineer Name Role Phone Yung Madrigal MD Unavailable Unavailable Winston Villatoro OD Unavailable [phone] Denise Woodson Ra, APRN FREIGHT BREAKER Unavailable [phone] Denise Woodson Ra, APRN FREIGHT BREAKER Primary Care Provid er Encounter Details Date Type Department Care Team (Late st Contact Info) Description 06/13/2021 [facility] Medical Advice [facility] [address] [place] [address] Denise Woodson Ra, APRN FREIGHT BREAKER [address] [place] [address] Insomnia, unspecified type Social History Tobacco Use Types Packs/Day Years [...] encounter Miscellaneous Notes * Telephone Encounter - Mary Craaballo RN - 06/13/2021 5:10 PM CDT Called [facility]. They stated they do not have a refill on file. Prescription approved per [facility] protocol. Mary Caraballo RN on 06/13/2021 at 5:18 PM documented in this encounter Plan of Treatment Upcoming Encounters Date Type Department Care Team (Late st Contact Info) Description 01/15/2024 3:30 PM CDT Office Visit [facility] [address] [place] [address] Jacque Alexis APRN FREIGHT BREAKER [address] [place] [address] documented as of this encounter Visit Diagnoses Diagnosis Insomnia, unspecified type documented in this encounter Additional Health Concerns Assessment Noted Time PHQ-9 Depression Total Score: 0 01/05/20 21 9:31 AM CDT documented as of this encounter Care Teams Radio Engineer Relationship Specialty Start Date End Date Yung Madrigal MD RETIRED PCP - Orthopaedics Orthopedics 08/26/12 Winston Villatoro OD [facility] [place] [address] [place] [address] PCP - Ophthalmology Ophthalmology 02/11/13 Denise Woodson Ra, APRN FREIGHT BREAKER [address] [place] [address] PCP - General Family Practice 09/21/20 Denise Woodson Ra, APRN FREIGHT BREAKER [address] [place] [address] Assigned PCP 07/17/20 documented as of this encounter
--- OUTSIDE RECORDS SUMMARY | 2023-12-31 14:11 | XMS_ITS | Encounter Summary ---
Author Name Unknown Organization [place] Address [address] [place] [address] Care Team Providers Care Rough And Trueing Machine Operator Name Role Phone Timmy Perez MD Unavailable Unavailable Yung Madrigal MD Unavailable Unavailable Winston Villatoro OD Unavailable [phone] Apple Sykes MD Primary Care Provider [phone] Westley Bates MD Unavailable [phone] Alessandra Cabrales APRN PLATE AND FRAME FILTER OPERATOR Primary Car e Provider Serum, Claar Garland MD Primary Care Provider Serum, Clara Garland MD Unavailable [phone] Serum, Clara Garland MD Unavailable [phone] Denise Woodson Ra, APRN PLATE AND FRAME FILTER OPERATOR Unavailable + [phone] Denise Woodson Ra, APRN, CNP Primary Care Provid er Encounter Details Date Type Department Care Team (Late st Contact Info) Description 05/26/2013 MyC Medical Advice [facility] [place] Orthopedics [address] [place] [id number] Yung Madrigal MD RETIRED Social History Tobacco [...] Description 01/15/2024 3:30 PM CDT Office Visit [facility] [address] [place] [address] Jacque Alexis APRN PLATE AND FRAME FILTER OPERATOR [address] [place] [address] documented as of this encounter Visit Diagnoses Not on filedocumented in this encounter Care Teams Rough And Trueing Machine Operator Relationship Specialty Start Date End Date Timmy Perez MD PCP - Obstetrics/Gynecology 03/02/08 08/07/15 Yung Madrigal MD RETIRED PCP - Orthopaedics Orthopedics 08/26/12 Winston Villatoro OD [facility] [place] [address] [place] [address] PCP - Ophthalmology Ophthalmology 02/11/13 Apple Sykes MD [facility] [place] [address] [place] [address] PCP - General Family Practice 05/04/13 10/25/16 Westley Bates MD XXX RETIRED XXX [address] [place] [address] PCP - ENT Otolaryngology 05/14/13 07/28/18 Alessandra Cabrales APRN PLATE AND FRAME FILTER OPERATOR [address] [facility] [place] [address] PCP - General Nurse Practitioner 10/26/16 02/06/17 Clara Cornell MD [address] [facility] [place] [address] PCP - General Internal Medicine 02/07/17 09/20/20 Clara Cornell MD [address] [place] [address] PCP - Assigned PCP 01/17/17 11/18/18 Denise Woodson Ra, APRN PLATE AND FRAME FILTER OPERATOR [address] [place] [address] PCP - General Family Practice 09/21/20 Clara Cornell MD [address] [place] [address] Assigned PCP 01/17/17 07/16/20 Denise Woodson Ra, APRN PLATE AND FRAME FILTER OPERATOR [address] [place] [address] Assigned PCP 07/17/20 documented as of this encounter
--- OUTSIDE RECORDS SUMMARY | 2023-12-31 14:11 | XMS_ITS | Encounter Summary ---
Author Name Unknown Organization [place] Address [address] [place] [address] Care Team Providers Care Pullman Car Repairer Name Role Phone Timmy Perez MD Unavailable Unavailable Yung Madrigal MD Unavailable Unavailable Frw, None Primary Care Provider Unavailrigoberto e Winston Villatoro OD Unavailable [phone] Apple Sykes MD Primary Care Provider [phone] Westley Bates MD Unavailable [phone] Alessandra Cabrales APRN PRIMER SUPERVISOR Primary Car e Provider Serum, Clara Garland MD Primary Care Provider Serum, Clara Garland MD Unavailable [phone] Serum, Clara Garland MD Unavailable Denise Woodson Ra, APRN PRIMER SUPERVISOR Unavailable [phone] Denise Woodson Ra, APRN PRIMER SUPERVISOR Primary Care Provid er Reason for Visit * Reason Onset Date Comments Medication Question 04/21/2013 Farhan Saez [facility] Encounter Details Date Type Department Care Team (Late st Contact Info) Description 04/21/2013 Telephone [facility] in [facility] [address] [place] [address] [place] [address] Janna Rodriguez, cooler deliverer Question ([facility]) Social History Tobacco Use Types Packs/Day Years [...] encounter Miscellaneous Notes * Telephone Encounter - Janna Rodriguez - 04/21/2013 12:09 PM CDT This nurse returned call to Pharmacist Kiko and per Dr. Sykes, pt to take Trazodone 50mg tablets Sig: Take 2 tablets by mouth at bedtime. Kiko stated understanding. * Telephone Encounter - Janna Rodriguez - 04/21/2013 [...] Description 01/15/2024 3:30 PM CDT Office Visit [facility] [address] [place] [address] Jacque Alexis APRN PRIMER SUPERVISOR [address] [place], [place] [address] documented as of this encounter Visit Diagnoses Not on filedocumented in this encounter Care Teams Pullman Car Repairer Relationship Specialty Start Date End Date Timmy Perez MD PCP - Obstetrics/Gynecology 03/02/08 08/07/15 Yung Madrigal MD RETIRED PCP - Orthopaedics Orthopedics 08/26/12 Frw, None PCP - General Family Practice 08/26/12 05/03/13 Winston Villatoro OD [facility] [place] [address] [place] [address] PCP - Ophthalmology Ophthalmology 02/11/13 Apple Sykes MD [facility] [place] [address] [place] [address] PCP - General Family Practice 05/04/13 10/25/16 Westley Bates MD XXX RETIRED XXX [address] [place] [address] PCP - ENT Otolaryngology 05/14/13 07/28/18 GeorginaAlessandra Gómez APRN PRIMER SUPERVISOR [address] [facility] [place] [address] PCP - General Nurse Practitioner 10/26/16 02/06/17 Clara Cornell MD [address] [facility] [place] [address] PCP - General Internal Medicine 02/07/17 09/20/20 Clara Cornell MD [address] [place] [address] PCP - Assigned PCP 01/17/17 11/18/18 Denise Woodson Ra, STEAM PLANT RECORDS CLERK PRIMER SUPERVISOR [address] [place] [address] PCP - General Family Practice 09/21/20 Clara Cornell MD [address] [place] [address] Assigned PCP 01/17/17 07/16/20 Denise Woodson Ra, STEAM PLANT RECORDS CLERK PRIMER SUPERVISOR [address] [place] [address] Assigned PCP 07/17/20 documented as of this encounter
--- OUTSIDE RECORDS SUMMARY | 2023-12-31 14:11 | XMS_ITS | Encounter Summary ---
Author Name Unknown Organization [place] Address [address] [place] [address]. [place] [address] Care Team Providers Care Finish Molder Name Role Phone Yung Madrigal MD Unavailable Unavailable Winston Villatoro OD Unavailable [phone] Denise Woodson Ra, APRN LARD TUB WASHER Unavailable + [phone] Denise Woodson Ra, APRN LARD TUB WASHER Primary Care Provid er Reason for Visit * Reason Comments Medication Refill Encounter Details Date Type Department Care Team (Late st Contact Info) Description 06/11/[address] [place] [address] Denise Woodson Ra, APRN LARD TUB WASHER [address] [place], [place] [id number] Medication Refill Social History Tobacco Use Types [...] 3:30 PM CDT Office Visit [facility] [address] [place] [address] Jacque Alexis APRN LARD TUB WASHER [address] [place] [address] documented as of this encounter Visit Diagnoses Diagnosis Insomnia, unspecified type documented in this encounter Additional Health Concerns Assessment Noted Time PHQ-9 Depression Total Score: 0 01/05/20 21 9:31 AM CDT documented as of this encounter Care Teams Finish Molder Relationship Specialty Start Date End Date Yung Madrigal MD RETIRED PCP - Orthopaedics Orthopedics 08/26/12 Winston Villatoro OD [facility] [place] [address] [facility] [address] [place] [address] PCP - Ophthalmology Ophthalmology 02/11/13 Denise Woodson Ra, APRN LARD TUB WASHER [address] [place] [address] PCP - General Family Practice 09/21/20 Denise Woodson Ra, APRN LARD TUB WASHER [address] [place] [address] Assigned PCP 07/17/20 documented as of this encounter
== END 2023-12-31 14:06 | disposition home or self-care (01) ==
LOC: NFLDREF 14:05
PROVIDERS: PCP Family Medicine; Visit Provider Family Medicine
DX: H93.12 Tinnitus, left ear (principal)
CPT/HCPCS: 84439; 84443

== ENCOUNTER 2024-01-04 15:50 | Emergency (ER) | payer OTHER, SELFPAY ==
[2024-01-04 16:01] VITALS: BP 189/86; PULSE 78; RESP 18; TEMP 36.9; O2SAT 99; BMI 32.1
--- NOTE | 2024-01-04 16:10 | ED.GENADULT ---
HPI - General Adult General Date Seen: 01/04/24 Chief complaint: Headache/Migraine Stated complaint: headache Time Seen by Provider: 01/04/24 15:51 History of Present Illness HPI narrative: 48-year-old female with a history of anxiety/depression, mild persistent asthma, Lizy-Danlos syndrome, chronic neck pain, pelvic pain, fibromyalgia, chronic kidney disease, presenting to the ER this afternoon for evaluation of headache. It is located in the left side near the congregation. She tried Tylenol about 2 hours prior to arrival, which only temporarily helped and pain has returned. She is also experiencing pulsatile tinnitus affecting her left ear. Notes indicate that she was in the clinic on 12/21 because she woke up with a swishing noise in her left ear. Will she was seen again on 12/30 for her left ear symptoms. Prescribed prednisone and azithromycin. Referred to ENT She says that she woke up a few weeks ago with this pulsing tinnitus in her left ear. No symptoms in the right ear. She had been doing well. She had a couple checkups with her doctors about the tinnitus. She had some fluid behind her ear so was put on some antibiotics couple of days ago and has been referred to ENT, but has not had the opportunity to see them yet. Yesterday she woke up with a mild headache. It is more severe today. It has been responding to [id number] medications. However with the persistent tinnitus and the new developing headache she was concerned so came here to the ER. No other symptoms. No blurry vision, diplopia, or other visual symptoms. No aura. No scotomata. Headache does not change with position. No associated focal neurologic deficits. No facial droop. No numbness or weakness in her arms or legs. No neck pain or stiffness. No recent head injury. Her and son her healthy and has been staying with her in the home for the past few days.. No known carbon monoxide exposure. No head trauma or other recent injury. Related Data Home Medications Medication Instructions Recorded Confirmed fluticasone furoate 200 1 inh inhalation Q24H 07/03/22 12/31/23 mcg-vilanterol 25 mcg/dose inhalation powder (Breo Ellipta) albuterol sulfate 90 mcg/actuation 2 puff inhalation Q6H PRN 08/01/22 12/31/23 aerosol inhaler magnesium 250 mg tablet 250 mg PO QDAY 08/02/22 12/31/23 trazodone 100 mg tablet 100 mg PO QDAY sleep 08/02/22 12/31/23 cetirizine 10 mg tablet (Zyrtec) 10 mg PO QDAY PRN 10/08/23 12/31/23 hydroxyzine HCl 25 mg tablet 25 mg PO BID PRN 12/31/23 12/31/23 Previous Rx's Medication Instructions Recorded ketorolac 10 mg tablet 10 mg PO Q6H PRN pain 5 days #20 07/03/22 tabs albuterol sulfate 2.5 mg/3 mL 2.5 mg (3 mL) inhalation Q4-6H PRN 09/23/22 (0.083 %) solution for nebulization #75 mL ipratropium 0.5 mg-albuterol 3 mg 3 ml inhalation Q6H PRN #90 mL 09/26/22 (2.5 mg base)/3 mL nebulization soln azithromycin 250 mg tablet See Rx Instructions PO .COMPLEX #6 12/31/23 tabs prednisone 20 mg tablet 20 mg PO QDAY 5 days #5 tabs 12/31/23 Allergies Allergy/AdvReac Type Severity Reaction Status Date / Time bupropion Allergy Intermediate Diarrhea Verified 01/04/24 17:18 codeine Allergy Intermediate epigastric Verified 01/04/24 17:18 pain erythromycin base Allergy Intermediate stomach Verified 01/04/24 17:18 upset, diarrhea PFSH PFSH Medical History Asthma ?J45.909 - Unspecified asthma, uncomplicated (ICD-10) History of blood transfusion (1994) ?Z92.89 - Personal history of other medical treatment (ICD-10) History of vitamin D deficiency ?Z86.39 - Personal history of other endocrine, nutritional and metabolic disease (ICD-10) Anxiety and depression ?F41.9 - Anxiety disorder, unspecified (ICD-10) ?F32.A - Depression, unspecified (ICD-10) Fibromyalgia ?M79.7 - Fibromyalgia (ICD-10) Mild persistent asthma ?J45.30 - Mild persistent asthma, uncomplicated (ICD-10) H/O bronchopulmonary dysplasia ?Z87.09 - Personal history of other diseases of the respiratory system (ICD-10) Stage 1 chronic kidney disease (11/16/20) ?N18.1 - Chronic kidney disease, stage 1 (ICD-10) Simple renal cyst (10/2020) ?N28.1 - Cyst of kidney, acquired (ICD-10) 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, unspecified (ICD-10) Asthma ?J45.909 - Unspecified asthma, uncomplicated (ICD-10) Surgical History History of laparoscopy ?Z98.890 - Other specified postprocedural states (ICD-10) S/P dilation and curettage (1994) ?Z98.890 - Other specified postprocedural states (ICD-10) H/O tubal ligation ?Z98.51 - Tubal ligation status (ICD-10) Status post excision of lipoma (2011) ?Z98.890 - Other specified postprocedural states (ICD-10) ?Z86.018 - Personal history of other benign neoplasm (ICD-10) History of medial meniscus repair of left knee (08/04/13) ?Z98.890 - Other specified postprocedural states (ICD-10) History of laparoscopic cholecystectomy (09/29/20) ?Z90.49 - Acquired absence of other specified parts of digestive tract (ICD-10) History of hysterectomy for benign disease (2005) ?Z90.710 - Acquired absence of both cervix and uterus (ICD-10) History of catheter-based closure of atrial septal defect (06/2006) ?Z87.74 - Personal history of (corrected) congenital malformations of heart and circulatory system (ICD-10) Family History Maternal Grandmother Stroke Paternal Grandfather Diabetes Daughter Depression Social History Narrative: She recently moved to [place]. 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 She has a college education She exercises 5 days a week with walking in treadmill 2M She does not smoke She does not drink alcohol or use recreational drugs Smoking Status: Never smoker Do you use any of these nicotine containing products: None Second hand tobacco smoke exposure: No How often do you have a drink containing alcohol: monthly or less How often do you have six or more drinks on one occasion: Never AUDIT-C Alcohol total score: 1 Non-prescribed substance use: denies use Caffeine: Yes (coffee 1 cup/day) Little interest or pleasure in doing things: not at all Feeling down, depressed, or hopeless: not at all Are you using contraception or practicing any form of control: Yes (hysterectomy) service: No Exam Narrative: Exam Narrative: Constitutional: Appears well-developed and well-nourished. Alert. Conversant. Non toxic. HENT: Head: Atraumatic. No depressed skull fracture, Raccoon Eyes, Mcbride's sign, or hemotympanum. Face normal. TMs normal Nose: Nose normal. Mouth/Throat: Oral mucosa is clear and moist. no trismus. Pharynx normal. Tonsils symmetric. No tonsillar enlargement, erythema, or exudate. Eyes: Conjunctivae normal. EOM normal. Pupils equal, round, and reactive to light. No scleral icterus. Neck: Normal range of motion. Neck supple. No tracheal deviation present. Cardiovascular: Normal rate, regular rhythm. No gallop. No friction rub. No murmur heard. Pulmonary/Chest: Effort normal. No stridor. No respiratory distress. No wheezes. No rales. No rhonchi . No tenderness. Abdominal: Soft.No distension. No mass. No tenderness. No rebound. No guarding. Musculoskeletal: RUE: Normal range of motion. No tenderness. No deformity LUE: Normal range of motion. No tenderness. No deformity RLE: Normal range of motion. No edema. No tenderness. No deformity LLE: Normal range of motion. No edema. No tenderness. No deformit Neurological: Mental status normal. Attention normal. Alert and oriented x3. GCS 15. Memory normal. Speech fluent. Cognition normal. Cranial Nerves intact II-XII except I did not formally test gag or visual acuity. EOMI. Palate elevates symmetrically and tongue protrudes in the midline. Strength: 5/5 trapezius on the right and left 5/5 deltoid on the right and left 5/5 biceps on the right and left 5/5 triceps on the right and left 5/5 interior design project manager on the right and left 5/5 thumb opposition on the right and left 5/5 finger abduction on the right and left 5/5 hip flexors (L3) on the right and left 5/5 quadriceps (L4) on the right and left 5/5 tibialis anterior on the right and left 5/5 EHL (L5) on the right and left 5/5 gastrocnemius (S1) on the right and left 5/5 hamstring on the right and left Sensation intact to light touch in both upper extremities (C4-T1) Sensation intact to light touch in Both lower extremities (L4-S1). Finger to nose and coordination normal. Gait normal. Skin: Skin is warm and dry. No rash noted. No pallor. Normal capillary refill. Psychiatric: Normal mood. Normal affect. Very polite. f Const: Vital Signs, click to edit/add: Vital Signs - 24 hr 01/04/24 16:01 Temperature 98.5 F Pulse Rate [Pulse Oximeter] 78 Respiratory Rate 18 Blood Pressure [Ri ght Upper Arm] 189/86 H Pulse Oximetry 99 Oxygen Delivery Me thod Room Air Course Vital Signs Vital signs: Initial Vital Signs Temperature 98.5 F 01/04/24 16:01 Temperature Source Temporal Artery Scan 01/04/24 16:01 Pulse Rate 78 01/04/24 16:01 Respiratory Rate 18 01/04/24 16:01 Blood Pressure 189/86 H 01/04/24 16:01 Blood Pressure Mean 120 H 01/04/24 16:01 Pulse Oximetry 99 01/04/24 16:01 Oxygen Delivery Method Room Air 01/04/24 16:01 Vital Signs Temperature 98.5 F 01/04/24 16:01 Pulse Rate 78 01/04/24 16:01 Respiratory Rate 18 01/04/24 16:01 Blood Pressure 189/86 H 01/04/24 16:01 Pulse Oximetry 99 01/04/24 16:01 Oxygen Delivery Method Room Air 01/04/24 16:01 Temperature 98.5 F 01/04/24 16:01 Pulse Rate 78 01/04/24 16:01 Respiratory Rate 18 01/04/24 16:01 Blood Pressure 189/86 H 01/04/24 16:01 Pulse Oximetry 99 01/04/24 16:01 Oxygen Delivery Method Room Air 01/04/24 16:01 Medical Decision Making MDM Narrative Medical decision making narrative: Ths patient presents with a headache associated with pulsatile tinnitus is in her left ear. A broad differential diagnosis was considered including tension, migraine, analgesic rebound, occipital neuralgia, etc. she does have some fluid in her left middle ear but no evidence for active infection. No sign of mastoiditis per Other less common but serious causes considered included meningitis, encephalitis, subarachnoid bleed, stroke, tumor, etc. given pulsatile tinnitus associated with new headache we did consider possible vascular pathology such as dissection, AVM, cetera. We did obtain noncontrast head CT which is normal and CT angiogram of her head and neck was also normal. No associated fever neck stiffness to suggest meningitis. Headache was not abrupt in onset to suggest subarachnoid. With pulsatile tinnitus and headache consider possible pseudotumor but since he has tinnitus is unilateral and there is no other neurologic symptoms at this point we feel that the risk and discomfort associated with lumbar puncture to measure opening pressure would outweigh the potential benefit. The patient has no signs of serious headache etiologies at this point. Patients questions were answered and they feel improved after above interventions in ED. Supportive outpatient management is therefore indicated. She will follow-up with ENT for recheck. Headache return precautions given for home. Lab Data Labs: Lab Results 01/04/24 Range/Units 16:45 WBC 9.85 (4.50-11.00) K/uL RBC 5.02 (4.00-5.20) m/uL Hgb 15.5 (12.0-16.0) gm/dL Hct 46.0 (33.0-51.0) % MCV 92 (80-100) fL MCH 31 (26-34) pg MCHC 34 (32-36) gm/dL RDW Coeff of [place] 11.9 (11.5-15.5) % Plt Count 221 (140-440) K/uL Neut % (Auto) 66.5 (42.0-72.0) % Lymph % (Auto) 24.0 (20-44) % [place] % (Auto) 5.8 (0.0-11.0) % Eos % (Auto) 3.2 (0.0-7.0) % Baso % (Auto) 0.3 (0.0-3.0) % Neut # (Auto) 6.55 (1.7-7.0) K/uL Lymph # (Auto) 2.36 (0.90-2.90) K/uL [place] # (Auto) 0.60 (0.00-0.90) K/UL Eos # (Auto) 0.32 (0.00-0.50) K/uL Baso # (Auto) 0.03 (0.00-0.30) K/uL Abs Immat Gran (auto) 0.02 (0.00-0.30) K/uL Imm/Tot Granulo (auto) 0.2 % Sodium 139 (135-149) mmol/L Potassium 3.9 (3.6-5.1) mmol/L Chloride 105 (96-114) mmol/L Carbon Dioxide 31 (20-32) mmol/L Anion Gap 3 L (7-15) mEq/L BUN 15 (5-24) mg/dL Creatinine 0.6 (0.5-1.5) mg/dL Estimated Creat Clear 116.93 Estimated GFR 111 ml/min Glucose 93 (60-115) mg/dL Calcium 9.7 (8.4-10.6) mg/dL Imaging Data CTA head and neck: Attestation: I have reviewed the pertinent imaging results. Radiologist's impression: FINDINGS: CTA head 1. Bilateral carotid siphons and [place] are patent. No aberrant course of the intracranial ICAs. 2. Major bilateral intracranial arterial circulations are patent with no high-grade stenosis, large vessel occlusion, or aneurysm. 3. Patent codominant vertebrobasilar system. CTA neck: 1. Patent bilateral carotid artery circulations from the origin to the skullbase. No focal stenosis. 2. Patent bilateral vertebral artery circulations from the origin to the vertebrobasilar junction. No high-grade stenosis. Other: Normal soft tissues of the visualized neck. Lung apices are clear. CT scan - head: Attestation: I have reviewed the pertinent imaging results. Radiologist's impression: IMPRESSION: 1. No acute intracranial abnormality. 2. Normal patent parenchymal morphology Discharge Plan Discharge Clinical Impression: Tinnitus, left ear, Headache Patient Disposition: Home, Self-Care Condition: Stable Instructions: Acute Headache (DC), Tinnitus (ED) Additional Instructions: As we discussed, please follow-up with your ENT for recheck as soon as possible. Come back to the ER right away if you have any worsening symptoms or other concerns. Prescriptions: No Action cetirizine [Zyrtec] 10 mg tablet 10 mg PO QDAY PRN hydroxyzine HCl 25 mg tablet 25 mg PO BID PRN azithromycin 250 mg tablet See Rx Instructions PO .COMPLEX Qty: 6 0RF Rx Instructions: For 250 mg dose pack: take 500 mg today (day 1), then 250 mg for 4 days (days 2-5) PO prednisone 20 mg tablet 20 mg PO QDAY 5 Days Qty: 5 0RF albuterol sulfate 90 mcg/actuation HFA aerosol inhaler 2 puff inhalation Q6H PRN magnesium 250 mg tablet 250 mg PO QDAY fluticasone furoate-vilanterol [Breo Ellipta] 200-25 mcg/dose blister with device 1 inh INHALATION Q24H Patient Comments: INHALE 1 PUFF BY MOUTH EVERY DAY ketorolac 10 mg tablet 10 mg PO Q6H PRN (Reason: pain) 5 Days Qty: 20 0RF Patient Comments: at least 2 weeks trazodone 100 mg tablet 100 mg PO QDAY albuterol sulfate 2.5 mg /3 mL (0.083 %) solution for nebulization 2.5 mg inhalation Q4-6H PRNQty: 75 0RF ipratropium-albuterol 0.5 mg-3 mg(2.5 mg base)/3 mL solution for nebulization 3 ml inhalation Q6H PRNQty: 90 0RF Follow Up/Referrals: Keira Irvin MD [Primary Care Provider] - Stand Alone Forms: [employer] Info Instructions
--- NOTE | 2024-01-04 16:36 | CT_ITS ---
Patient: CHRISTOPHER TY Facility:?[facility] R[facility] Patient ID:?[id number] Site Patient ID:?[id number]. Site :?1975 Study:?CT-Neck Angio W/ 95CC ISOVUE 370 NONACCUTE-01/04/2024 5:13:47 PM Ordering Physician:COURTNEY Final Report: DATE: 01/04/2024 CLINICAL HISTORY: Patient with headache and left sided tinnitus. TECHNIQUE: Standard helical CT image acquisition of the neck up to the skull base after bolus intravenous contrast enhancement. 2D and 3D MIP images for post-processing were performed and interpreted on an independent workstation and 3D images were permanently archived. COMPARISON: CT same day. FINDINGS: There is asymmetric enlargement of the left occipital artery compared to the right. The origins of the great vessels from the aortic arch are patent. The origin of the right vertebral artery is patent. The origin of the left vertebral artery is patent. The common carotid arteries are patent. There is no stenosis at the origin of the right internal carotid artery. There is no stenosis at the origin of the left internal carotid artery. The rest of the cervical segments of the internal carotid arteries are patent up to the skull base. The vertebral arteries are codominant. The cervical segments of the vertebral arteries are patent up to the skull base. The visualized lung apices are unremarkable. The thyroid gland is unremarkable. The soft tissues of the neck are unremarkable. There are degenerative changes in the cervical spine. IMPRESSION: 1. Patent cervical vasculature. 2. Asymmetric enlargement of the left occipital artery compared to the right. Given the history of left-sided pulsatile tinnitus, further evaluation with a diagnostic catheter angiogram to exclude a dural arteriovenous fistula is recommended. Arrangements for this to be performed by [facility]`s Neurointerventional team can be made by calling . Findings and recommendations were discussed with Dr. Beaulieu at 8:30 PM. Timoteo Gutierrez M.D. Neurointerventional Radiologist [facility] Pager: Office/Appointments: Answering Service: [facility]: [email or web address] Please note that all CT scans at this facility use dose modulation, iterative reconstruction, and/or weight-based dosing when appropriate to reduce radiation dose to as low as reasonably achievable. Dictated by Timoteo Gutierrez MD @ 01/04/2024 8:30:01 PM Signed by:?Timoteo Gutierrez MD @01/04/2024 8:30:01 PM (Electronic Signature)
--- NOTE | 2024-01-04 16:36 | CT_ITS ---
Patient: CHRISTOPHER TY Facility:?[facility] Patient ID:?[id number] Site Patient ID:?[id number]. Site :?1975 Study:?CT-Head Angio W/ 95CC ISOVUE 370 NONACCUTE-01/04/2024 5:14:35 PM Ordering Physician:COURTNEY Final Report: DATE: 01/04/2024 CLINICAL HISTORY: Patient with headache and left-sided pulsatile tinnitus. TECHNIQUE: Standard helical CT image acquisition through the intracranial circulation following intravenous administration of contrast material with bolus tracking. 2D and 3D MIP images for post-processing were performed and interpreted on an independent workstation and 3D images were permanently archived. COMPARISON: CT same day. FINDINGS: There is no cerebral aneurysm or large vessel occlusion. There is asymmetric enlargement of the left occipital artery compared to the right. The right internal carotid artery is normal. The right middle cerebral artery and its branches are normal. The right anterior cerebral artery and its branches are normal. The left internal carotid artery is normal. The left middle cerebral artery and its branches are normal. The left anterior cerebral artery and its branches are normal. The anterior communicating artery is well visualized and appears normal. The right vertebral artery and PICA are normal. The left vertebral artery and PICA are normal. The left vertebral artery is dominant. The basilar artery is patent and appears normal. The right posterior cerebral artery is normal. The left posterior cerebral artery is normal. The visualized venous structures are patent. IMPRESSION: 1. Patent proximal intracranial vasculature without intracranial aneurysms. 2. Asymmetric enlargement of the left occipital artery compared to the right. Given the history of left-sided pulsatile tinnitus, further evaluation with a diagnostic catheter angiogram to exclude a dural arteriovenous fistula is recommended. Arrangements for this to be performed by [facility]`s Neurointerventional team can be made by calling . Findings and recommendations were discussed with Dr. Beaulieu at 8:30 PM. Timoteo Gutierrez M.D. Neurointerventional Radiologist [facility] Pager: Office/Appointments: Answering Service: [facility]: [email or web address] Please note that all CT scans at this facility use dose modulation, iterative reconstruction, and/or weight-based dosing when appropriate to reduce radiation dose to as low as reasonably achievable. Dictated by Timoteo Gutierrez MD @ 01/04/2024 8:32:47 PM Signed by:?Timoteo Gutierrez MD @01/04/2024 8:32:47 PM (Electronic Signature)
--- NOTE | 2024-01-04 16:36 | CT_ITS ---
Patient: CHRISTOPHER TY Facility:?[facility] R[facility] Patient ID:?[id number] Site Patient ID:?[id number]. Site :?1975 Study:?CT-Head WITHOUT-01/04/2024 5:15:32 PM Ordering Physician:COURTNEY Final Report: INDICATION: Headache. Left pulsatile tinnitus. COMPARISON: 11/04/2019. TECHNIQUE: Noncontrast CT head. FINDINGS: Normal brain parenchymal morphology. No acute intracranial hemorrhage, acute infarct, focal edema, mass effect, or fracture. No midline shift. No abnormal ventricular dilatation. Normal calvarium and skull base. Visualized paranasal sinuses mastoid air cells are clear. Normal orbits bilaterally. IMPRESSION: 1. No acute intracranial abnormality. 2. Normal patent parenchymal morphology Please note that all CT scans at this facility use dose modulation, iterative reconstruction, and/or weight-based dosing when appropriate to reduce radiation dose to as low as reasonably achievable. Dictated by Lee Gibbons MD @ 01/04/2024 5:26:22 PM Signed by:?Lee Gibbons MD @01/04/2024 5:26:22 PM (Electronic Signature)
--- OUTSIDE RECORDS SUMMARY | 2024-01-04 16:53 | XMS_ITS | Clinical Summary ---
Author Name Unknown Organization [place] Address [address] [place] [address] Care Team Providers Care Aeroplane Pilot Name Role Phone Yung Madrigal MD Unavailable Unavailable Winston Villatoro OD Unavailable [phone] Denise Woodson Ra, APRN CANE FLUME WATCHER Unavailable [phone] Denise Woodson Ra, APRN CANE FLUME WATCHER Primary Care Provid er Allergies Active Allergy [...] (FLONASE) 50 MCG/ACT nasal sprayIndications:Chr onic rhinitis [place] 2 sprays into both nostrils daily 16 [...] Comments Blood Pressure 108/68 07/27/2021 8:28 AM HOME IMPROVEMENT INSTALLER Pulse 68 07/27/2021 8:28 AM HOME IMPROVEMENT INSTALLER Temperature 36.9 ??C (98.4 ??F) 07/27/2021 8:28 AM CS T Respiratory Rate 12 07/27/2021 8:28 AM HOME IMPROVEMENT INSTALLER Oxygen Saturation 97% 07/27/2021 8:28 AM HOME IMPROVEMENT INSTALLER Inhaled Oxygen Concentration - - Weight 99.3 kg (219 lb) 07/27/2021 8:28 AM HOME IMPROVEMENT INSTALLER Height 174.6 cm (5' 8.75) 02/08/2021 10:22 AM C DT Body Mass Index 32.58 02/08/2021 10:22 AM CDT Plan of Treatment Upcoming Encounters Date Type Department Care Team (Late st Contact Info) Description 01/15/2024 3:30 PM CDT Office Visit [facility] [address] [place] [phone] Jacque Alexis APRN CANE FLUME WATCHER [address] [place] [address] Health Maintenance Due Date Last Done Comments [...] COMPREHENSIVE METABOLIC PANEL Routine 07/27/2021 8:57 AM HOME IMPROVEMENT INSTALLER Routine general medical examination at a health care facility CARDIOVASCULAR SCREENING; LDL GOAL LESS THAN 160 LIPID REFLEX TO DIRECT LDL PANEL Routine 07/27/2021 8:57 AM HOME IMPROVEMENT INSTALLER CARDIOVASCULAR SCREENING; LDL GOAL LESS THAN 160 [...] patient. IRMA HOWELL MD Denise Woodson APRN CANE FLUME WATCHER IMG MAMMOGRA PHY ORDERABLES * (ABNORMAL) Lipid panel reflex to direct LDL Fasting (07/27/2021 8:57 AM HOME IMPROVEMENT INSTALLER) Cholesterol 202(H) <200 mg/dL 07/28/2021 10:12 AM HOME IMPROVEMENT INSTALLER [facility] Triglycerides 91 <150 mg/dL 07/28/2021 10:12 AM HOME IMPROVEMENT INSTALLER [facility] Direct Measure HDL 56 >=50 mg/dL 07/28/2021 10:12 AM HOME IMPROVEMENT INSTALLER [facility] LDL Cholesterol Calculated 128(H) <=100 mg/dL 07/28/2021 10:12 AM HOME IMPROVEMENT INSTALLER [facility] Non HDL Cholesterol 146(H) <130 mg/dL 07/28/2021 10:12 AM HOME IMPROVEMENT INSTALLER [facility] Patient Fasting > 8hrs? Yes 07/28/2021 10:12 AM HOME IMPROVEMENT INSTALLER [facility] Blood STRUCTURE OF RIGHT UPPER LIMB / Unknown Venipuncture / Unknown 07/27/2021 8:57 AM HOME IMPROVEMENT INSTALLER 07/27/2021 8:57 AM HOME IMPROVEMENT INSTALLER Narrative [facility] LAB[facility]AT[facility] - 07/28/2021 10:12 AM HOME IMPROVEMENT INSTALLER Cholesterol Desirable: ??<200 mg/dL Triglycerides Normal: ??Less [...] equal to 220 mg/dL Denise Woodson APRN CANE FLUME WATCHER LAB - BLOOD ORDERABLES OX LAB[facility]AT[facility] [address] Lab (no room number, 1st floor of clinic) [place] [address], [facility] [phone] * Comprehensive metabolic panel (BMP + Alb, Alk Phos, ALT, AST, Total. Bili, TP) (07/27/2021 8:57 AM HOME IMPROVEMENT INSTALLER) Sodium 139 133 - 144 mmol/L 07/28/2021 10:12 AM HOME IMPROVEMENT INSTALLER [facility] Potassium 4.0 3.4 - 5.3 mmol/L 07/28/2021 10:12 AM HOME IMPROVEMENT INSTALLER [facility] Chloride 105 94 - 109 mmol/L 07/28/2021 10:12 AM HOME IMPROVEMENT INSTALLER [facility] Carbon Dioxide (CO2) 26 20 - 32 mmol/L 07/28/2021 10:12 AM HOME IMPROVEMENT INSTALLER [facility] Anion Gap 8 3 - 14 mmol/L 07/28/2021 10:12 AM HOME IMPROVEMENT INSTALLER [facility] Urea Nitrogen 20 7 - 30 mg/dL 07/28/2021 10:12 AM HOME IMPROVEMENT INSTALLER [facility] Creatinine 0.74 0.52 - 1.04 mg/dL 07/28/2021 10:12 AM HOME IMPROVEMENT INSTALLER [facility] Calcium 8.8 8.5 - 10.1 mg/dL 07/28/2021 10:12 AM HOME IMPROVEMENT INSTALLER [facility] Glucose 95 70 - 99 mg/dL 07/28/2021 10:12 AM HOME IMPROVEMENT INSTALLER [facility] Alkaline Phosphatase 67 40 - 150 U/L 07/28/2021 10:12 AM HOME IMPROVEMENT INSTALLER [facility] AST 8 0 - 45 U/L 07/28/2021 10:12 AM HOME IMPROVEMENT INSTALLER [facility] ALT 18 0 - 50 U/L 07/28/2021 10:12 AM HOME IMPROVEMENT INSTALLER [facility] Protein Total 7.6 6.8 - 8.8 g/dL 07/28/2021 10:12 AM HOME IMPROVEMENT INSTALLER [facility] Albumin 3.4 3.4 - 5.0 g/dL 07/28/2021 10:12 AM HOME IMPROVEMENT INSTALLER [facility] Bilirubin Total 0.5 0.2 - 1.3 mg/dL 07/28/2021 10:12 AM HOME IMPROVEMENT INSTALLER [facility] GFR Estimate >90 >60 mL/min/1.7 3m2 07/28/2021 10:12 AM HOME IMPROVEMENT INSTALLER [facility] Comment:As of March 26, 2021, eGFR is calculated by the CKD-EPI creatinine equation, without race adjustment. eGFR can be influenced by muscle mass, exercise, and diet. The reported eGFR is an estimation only and is only applicable if the renal function is stable. Blood STRUCTURE OF RIGHT UPPER LIMB / Unknown Venipuncture / Unknown 07/27/2021 8:57 AM HOME IMPROVEMENT INSTALLER 07/27/2021 8:57 AM HOME IMPROVEMENT INSTALLER Denise Woodson APRN CANE FLUME WATCHER LAB - BLOOD ORDERABLES OX LAB[facility]AT[facility] [address] Lab (no room number, 1st floor of clinic) [place] [address], [facility] [phone] from Last 3 Months or Most Recently Relevant to Health Maintenance Care Teams Aeroplane Pilot Relationship Specialty Start Date End Date Yung Madrigal MD RETIRED PCP - Orthopaedics Orthopedics 08/26/12 Winston Villatoro OD [facility] [address] [facility] [address] [place] [address] PCP - Ophthalmology Ophthalmology 02/11/13 Denise Woodson Ra, APRN CANE FLUME WATCHER [address] [place] [address] PCP - General Family Practice 09/21/20 Denise Woodson Ra, APRN CANE FLUME WATCHER [address] [place] [address] Assigned PCP 07/17/20
--- OUTSIDE RECORDS SUMMARY | 2024-01-04 16:53 | XMS_ITS | Encounter Summary ---
Author Name Unknown Organization [place] Address [address] [place] [address] Care Team Providers Care Computer Language Coder Name Role Phone Yung Madrigal MD Unavailable Unavailable Winston Villatoro OD Unavailable [phone] Denise Woodson Ra, APRN SECURITY SALES MANAGER Unavailable + [phone] Denise Woodson Ra, APRN SECURITY SALES MANAGER Primary Care Provid er Encounter Details Date Type Department Care Team (Late st Contact Info) Description 01/10/2023 MyC [facility] [address] [place] [address] Arianna Lo Social History Tobacco [...] Description 01/15/2024 3:30 PM CDT [facility] [address] [place] [address] Jacque Alexis APRN SECURITY SALES MANAGER [address] [place] [address] documented as of this encounter Visit Diagnoses Not on filedocumented in this encounter Additional Health Concerns Assessment Noted Time PHQ-9 Depression Total Score: 0 06/23/20 21 4:11 PM CDT documented as of this encounter Care Teams Computer Language Coder Relationship Specialty Start Date End Date Yung Madrigal MD RETIRED PCP - Orthopaedics Orthopedics 08/26/12 Winston Villatoro OD [facility] [place] [address] [place] [address] PCP - Ophthalmology Ophthalmology 02/11/13 Denise Woodson Ra, APRN SECURITY SALES MANAGER [address] [place] [address] PCP - General Family Practice 09/21/20 Denise Woodson Ra, APRN SECURITY SALES MANAGER [address] [place] [address] Assigned PCP 07/17/20 documented as of this encounter
--- OUTSIDE RECORDS SUMMARY | 2024-01-04 16:53 | XMS_ITS ---
Author Name Unknown Organization [facility] Address [address] [place] [address] Care Team Providers Care Bariatric Nurse Name Role Phone Unavailable Unavailable Unavailable Surgery Details Not on file Complications Check Surgery Details section. Procedure Estimated Blood Loss Check Surgery Details section. Procedure Findings Check Surgery Details section. Procedure Specimens Taken Check Surgery Details section.
--- OUTSIDE RECORDS SUMMARY | 2024-01-04 16:53 | XMS_ITS | Encounter Summary ---
Author Name Unknown Organization [place] Address [address] [place] [address]. [place] [address] Care Team Providers Care Facilities Engineer Name Role Phone Yung Madrigal MD Unavailable Unavailable Winston Villatoro OD Unavailable Denise Woodson Ra, APRN DYNAMICS AX DEVELOPER Unavailable Denise Woodson Ra, APRN DYNAMICS AX DEVELOPER Primary Care Provid er Reason for Visit * Reason Comments Medication Refill Encounter Details Date Type Department Care Team (Late st Contact Info) Description [facility] [address] [place] [address] Denise Woodson Ra, APRN DYNAMICS AX DEVELOPER [address] [place] [address] Medication Refill Social History Tobacco [...] as final attempt to schedule. Karla Velasquez Radioactivity Technician * Telephone Encounter - Karla Morales - 01/17/2023 8:59 AM CDT LVM requesting a call back for an appt (physical). One more attempt will be made. Karla Morales Yatahey Radioactivity Technician * Telephone Encounter - Arianna Lo - 01/10/2023 3:33 PM CDT Sent BemDireto message requesting a call back for an appt. Two more attempts will be made. Arianna Lo Yatahey Radioactivity Technician * Telephone Encounter - Leslie Mcclellan RN [...] 0 0 0 Leslie Mcclellan RN, BSN [facility] documented in this encounter Plan of Treatment Upcoming Encounters Date Type Department Care Team (Late st Contact Info) Description 01/15/2024 3:30 PM CDT Office Visit [facility] [address] [place] [address] Jacque Alexis APRN DYNAMICS AX DEVELOPER [address] [place] [address] documented as of this encounter Visit Diagnoses Diagnosis Moderate persistent asthma without complication Unspecified asthma documented in this encounter Additional Health Concerns Assessment Noted Time PHQ-9 Depression Total Score: 0 06/23/20 21 4:11 PM CDT documented as of this encounter Care Teams Facilities Engineer Relationship Specialty Start Date End Date Yung Madrigal MD RETIRED PCP - Orthopaedics Orthopedics 08/26/12 Winston Villatoro OD [facility] [place] [address] [place] [address] PCP - Ophthalmology Ophthalmology 02/11/13 Denise Woodson Ra, APRN DYNAMICS AX DEVELOPER [address] [place] [address] PCP - General Family Practice 09/21/20 Denise Woodson Ra, APRN DYNAMICS AX DEVELOPER [address] [place] [address] Assigned PCP 07/17/20 documented as of this encounter
--- OUTSIDE RECORDS SUMMARY | 2024-01-04 16:53 | XMS_ITS | Clinical Summary ---
Author Name Unknown Organization [facility] Address [address] [place] [address] Care Team Providers Care Extension Course Counselor Name Role Phone Darius Shaw M.D. Primary Care Provider [phone] Source Comments Patient records contain information from all sites at [facility]. For routine questions regarding patient records, call [phone] during business hours, M-F 8:00 AM - 5:00 PM Central Time. Record requests for emergency care only can be directed to [phone] at any time.[facility] Allergies Active Allergy Reactions Criticality Noted Date [...] week 01/10/2023 How often do you attend hoahaoism or scientology serv ices? Never 01/10/2023 Do you belong to any clubs o r organizations such as hoahaoism groups, unions, fraternal or athletic groups, or [...] Answer Date Recorded PHQ-2 Score 3 01/10/2023 [facility] - Occupational Stress Questionnaire Answer Date [...] place to sleep or slept in a prison (including now)? No 01/10/2023 Depression Answer Date [...] Hepatitis B Vaccines Completed 03/03/2012, 11/07/2011, 10/04/2011 Medical Devices Implanted Type Area Information Technology Instructor Device Identifier Shelf Expiration Date Model / Serial / Lot Mesh Or Patch Mesh or Patch Heart Description:Amplatzer Septal Occluder Asd Closure Device 34mm - [place] [id number] Implanted:Qty: 1 on 06/20/2006 Septal Defect Occluder Device Other/Legacy - See Implant Description Description:Device Manufactu [facility]. Device Status Text - [id number]. Procedures Procedure Name Priority Date/Time Associated Diagnosis Comments BI BREAST SCREENING BILATERAL WITH TOMOSYNTHESIS RAD - Routine (most inpatients and all outpatients) 07/30/2023 2:38 PM MICROFILM EQUIPMENT INSPECTOR Screening Mammogram Breast Cancer COLOGUARD Routine 10/28/2022 5:54 PM MICROFILM EQUIPMENT INSPECTOR Screening Cancer Colon VBG & LYTES CG8+, POCT, B Routine 09/30/2022 10:38 AM MICROFILM EQUIPMENT INSPECTOR EXTI LIPID PANEL REFLEX TO DIRECT LDL Routine 07/27/2021 8:57 AM MICROFILM EQUIPMENT INSPECTOR from Last 3 Months or Most Recently Relevant to Health Maintenance Results * BI Breast Screening Bilateral with Tomosynthesis (07/30/2023 2:38 PM MICROFILM EQUIPMENT INSPECTOR) Anatomical Region Laterality Modality Breast, Breast Imaging RST L OS, Breast Imaging ARZ LOS, Breast Imaging FLA LOS Bilateral Mammography 08/01/2023 12:2 8 PM MICROFILM EQUIPMENT INSPECTOR Impressions 08/01/2023 12:33 PM MICROFILM EQUIPMENT INSPECTOR Negative. RECOMMENDATION: ??Annual Screening Mammogram ASSESSMENT: ??BI-RADS: 1: Negative. Narrative 08/01/2023 12:33 PM MICROFILM EQUIPMENT INSPECTOR EXAM: ??BI BREAST SCREENING BILATERAL WITH TOMOSYNTHESIS [...] ASSESSMENT: BI-RADS: 1: Negative. Darius Shaw M.D. Silv[facility] BI PROCEDURES * Cologuard-Sent Out Lab (10/28/2022 5:54 PM MICROFILM EQUIPMENT INSPECTOR) Result Negative Negative 11/03/2022 2:48 AM MICROFILM EQUIPMENT INSPECTOR INNA Comment: NEGATIVE TEST RESULT. A negative Cologuard [...] screened with both Cologuard and colonoscopy. (Yenny Melchor. et al, N Engl J Med 2014;370(14):3977-0535) The normal value (reference range) for this assay is negative. COLOGUARD RE-SCREENING RECOMMENDATION: Periodic colorectal cancer screening is an important part of preventive healthcare for asymptomatic individuals at average risk for colorectal cancer. ??Following a negative Cologuard result, the [place] Cancer Society and U.S. Multi-Society Task Force screening guidelines recommend a Cologuard re-screening interval of 3 years. References: [place] [employer] Guideline for Colorectal Cancer Screening: https://www.cancer.org/cancer/xtlaj-muffcf-isucue/detection- diagnosis-staging/acs-recommendations.html.; Ming MARTINEZ, Barbra TREJO, Erna SimsK, Colorectal Cancer Screening: Recommendations for Physicians and Patients from the U.S. Multi-Society Task Force on Colorectal Cancer Screening , Am J Gastroenterology 2017; 112:9964-5627. TEST DESCRIPTION: Composite algorithmic analysis of stool [...] (Yenny Adkins al, N Engl J Med 2014;370(14):4190-7867.) Cologuard may produce a false negative or false positive result (no colorectal cancer or precancerous polyp present at colonoscopy follow up). A negative Cologuard test result does not guarantee the absence of CRC or advanced adenoma (pre-cancer). The current Cologuard screening interval is every 3 years. ([place] Cancer Society and U.S. Multi-Society Task Force). Cologuard performance data in a 10,000 patient pivotal study using colonoscopy as the reference method can be accessed at the following location: www.Everyday Health/results. Additional description of the Cologuard test process, warnings and precautions can be found at www.[employer].com. Stool (Stool) 10/28/2022 5:5 4 PM MICROFILM EQUIPMENT INSPECTOR 10/30/2022 1:57 PM MICROFILM EQUIPMENT INSPECTOR Darius Shaw M.D. LAB BODY FLUIDS AND STOOLS ORDERABLES [employer] [address] [place] [address] EX [employer] [address] [facility], [address] [place] [address] * Venous Blood Gas and Electrolytes CG8+, POCT (09/30/2022 10:38 AM MICROFILM EQUIPMENT INSPECTOR) Sample Site, POCT Venstick 09/30/2022 10:54 AM MICROFILM EQUIPMENT INSPECTOR PCSM Comment: ----ADDITIONAL INFORMATION---- Performed at the Point of Care pH, Venous, POCT, B 7.43 7.32 - 7.43 09/30/2022 10:54 AM MICROFILM EQUIPMENT INSPECTOR PCSM Comment: ----ADDITIONAL INFORMATION---- Performed at the Point of Care pCO2, Venous, POCT, B 46 41 - 51 mm Hg 09/30/2022 10:54 AM MICROFILM EQUIPMENT INSPECTOR PCSM Comment: ----ADDITIONAL INFORMATION---- Performed at the Point of Care pO2, Venous, POCT, B 25 Not Applicable mm Hg 09/30/2022 10:54 AM MICROFILM EQUIPMENT INSPECTOR PCSM Comment: ----ADDITIONAL INFORMATION---- Performed at the Point of Care Base Excess, Venous, POCT, B 6 Not Applicable mmol/L 09/30/2022 10:54 AM MICROFILM EQUIPMENT INSPECTOR PCSM Comment: ----ADDITIONAL INFORMATION---- Performed at the Point of Care HCO3, Venous, POCT, B 31 Not Applicable mmol/L 09/30/2022 10:54 AM MICROFILM EQUIPMENT INSPECTOR PCSM Comment: ----ADDITIONAL INFORMATION---- Performed at the Point of Care Sodium, POCT, B 140 135 - 145 mmol/L 09/30/2022 10:54 AM MICROFILM EQUIPMENT INSPECTOR PCSM Comment: ----ADDITIONAL INFORMATION---- Performed at the Point of Care Potassium, POCT, B 4.3 3.6 - 5.2 mmol/L 09/30/2022 10:54 AM MICROFILM EQUIPMENT INSPECTOR PCSM Comment: ----ADDITIONAL INFORMATION---- Performed at the Point of Care Calcium, Ionized, POCT, B 5.20 4.65 - 5.30 mg/dL 09/30/2022 10:54 AM MICROFILM EQUIPMENT INSPECTOR PCSM Comment: ----ADDITIONAL INFORMATION---- Performed at the Point of Care Glucose, POCT, B 117 70 - 140 mg/dL 09/30/2022 10:54 AM MICROFILM EQUIPMENT INSPECTOR PCSM Comment: ----ADDITIONAL INFORMATION---- Performed at the Point of Care Hematocrit, POCT, B 44.0 35.5 - 44.9 % 09/30/2022 10:54 AM MICROFILM EQUIPMENT INSPECTOR PCSM Comment: ----ADDITIONAL INFORMATION---- Performed at the Point of Care Blood 09/30/2022 10:3 8 AM MICROFILM EQUIPMENT INSPECTOR 09/30/2022 10:54 AM MICROFILM EQUIPMENT INSPECTOR Unknown Provider LAB POCT ORDERABLES - DEVICE POC [facility] [address] [place] [address], [facility] POC [address] [place] [address] from Last 3 Months or Most Recently Relevant to Health Maintenance Advance Directives For more information, please contact: [phone] * Full Code (Latest Code Status on File) Date Activated Date Inactivated Comments 09/30/2022 4:41 PM 10/02/2022 6:08 PM Question Answer Comments Full Code: Discussed Care Teams Extension Course Counselor Relationship Specialty Start Date End Date Darius Shaw M.D. [place]: [phone] [address] [place] [address] PCP - General Family Medicine 09/27/22
--- OUTSIDE RECORDS SUMMARY | 2024-01-04 16:53 | XMS_ITS | Clinical Summary ---
Author Name Unknown Organization [facility] Address [place], [place] [address] Care Team Providers Care Skull Grinder Name Role Phone Pcp, No Primary Care [...] durable medical equipment (DME)Indications:Plant ar fasciitis, bilateral [id number] Plantar Fasciitis, night splint, Large 1 Each [...] Name Administration Dates Next Due COVID-19 vaccine ([employer] 30mcg/0.3mL) PF, MDV 07/07/2021 Hepatitis B, Unspecified [...] REFLEX MEASURED LDL Routine 08/03/2011 10:31 AM EQUITY DIRECTOR Screening for other and unspecified cardiovascular conditions from Last 3 Months or Most Recently Relevant to Health Maintenance Results * LIPID PANEL W REFLEX MEASURED LDL (08/03/2011 10:31 AM EQUITY DIRECTOR) CHOLESTEROL,TOTAL 171 110 - 199 mg/dL [facility] TRIGLYCERIDES 67 <150 mg/dL [facility] HDL CHOLESTEROL 43 >40 mg/dL [facility] CHOL/HDL RATIO 3.98 <4.51 [facility] LDL CHOLESTEROL 115 <131 mg/dL [facility] PATIENT STATUS Fasting [facility] Blood specimen (specimen) BLOOD SPECIMEN / Unknown 08/03/2011 10:31 AM EQUITY DIRECTOR 08/03/2011 10:23 AM EQUITY DIRECTOR Jasvir Pickens MD CHEMISTRY [facility] [address] [place] [id number] from Last 3 Months or Most Recently Relevant to Health Maintenance Care Teams Skull Grinder Relationship Specialty Start Date End Date Pcp, No . PCP - General 11/07/22
--- OUTSIDE RECORDS SUMMARY | 2024-01-04 16:53 | XMS_ITS | Continuity of Care Document ---
Author Name Unknown Organization [facility] Address [address] [address] [place] [address] Phone Care Team Providers Care Rug Repairer Name Role Phone Unavailable Unavailable Unavailable Procedures Procedure Date Ugi Endo; Dx W/wo Collec Specm Advance Directives Directive Yes / No Effective Date File Name No Information Encounters Encounter Description Practice Location Reason(s) For Visit Diagnoses Date Provider Providers Copied on Encounter [facility], [address] [address], [place], [place], [id number], [place] tel:[phone] [facility] No Information 021 No Information [facility], [address] [address], [facility] [place], [id number], [place] tel:[phone] [facility] No Information 021 No Information [facility], [address] [address], [place], [place], [address], [place] tel:[phone] No Information Unknown No Information Family History Family Member Type Diagnosis Age At Onset No Information Immunizations Vaccine Date Status Comments tetanus toxoid, reduced diphtheria toxoid, and acellular pertussis vaccine, adsorbed administered Note: [facility] b i-directional interface ; Source: Other Registry SARS-COV-2 (COVID-19) vaccin e, vector non-replicating, recombinant spike protein-Ad26, preservative free, 0.5 mL administered Note: [facility] bi- directional interface ; Source: Other Registry Afluria Qd administered Note: [facility] bi-directional interface ; Source: Other Registry Afluria Qd administered Note: [facility] bi-directional interface ; Source: Other Registry Afluria Qd administered Note: [facility] bi-directional interface ; Source: Other Registry Afluria Qd administered Note: [facility] bi-directional interface ; Source: Other Registry influenza virus vaccine, unspecified formulation administered Note: [facility] bi-di rectional interface ; Source: Other Registry influenza virus vaccine, unspecified formulation administered Note: [facility] bi-di rectional interface ; Source: Other Registry Influenza, seasonal, injecta ble, preservative free administered Note: [facility] bi-direct ional interface ; Source: Other Registry Influenza, seasonal, injecta ble, preservative free administered Note: [facility] bi-direct ional interface ; Source: Other Registry hepatitis B vaccine, unspeci fied formulation administered Note: [facility] bi-direct ional interface ; Source: Other Registry hepatitis B vaccine, unspeci fied formulation administered Note: [facility] bi-direct ional interface ; Source: Other Registry hepatitis B vaccine, unspeci fied formulation administered Note: [facility] bi-direct ional interface ; Source: Other Registry tetanus toxoid, reduced diphtheria toxoid, and acellular pertussis vaccine, adsorbed administered Note: [facility] b i-directional interface ; Source: Other Registry Influenza, seasonal, injectable administe red Note: [facility] bi- directional interface ; Source: Other Registry influenza virus vaccine, unspecified formulation administered Note: [facility] bi-di rectional interface ; Source: Other Registry Influenza, seasonal, injectable administe red Note: [facility] bi- directional interface ; Source: Other Registry Pneumovax 23 administered Note: [facility] bi-d irectional interface ; Source: Other Registry tetanus and diphtheria toxoi ds, adsorbed, preservative free, for adult use (2 Lf of tetanus toxoid and 2 Lf of diphtheria toxoid) administered Note: [facility] bi-direct ional interface ; Source: Other Registry tetanus and diphtheria toxoi ds, adsorbed, preservative free, for adult use (2 Lf of tetanus toxoid and 2 Lf of diphtheria toxoid) administered Note: [facility] bi-direct ional interface ; Source: Other Registry Payers Payer name Insurance type Covered republican ID Authoriza tion(s) No Information Social History Type Description Quantity Date Captured Comments Sex Female Smoking Status No Information Chief Complaint And Reason For Visit No Information Reason For Referral Reason For Referral No Information History Of Present Illness Encounter Date Complaint History Of Prese nt Illness No Information Functional Status Date Functional Assessmen t No Information Instructions Date Instruction Additional Infor mation No Information Assessments Type Assessment Date No Information Patient Care Teams Name Effective Dates (start - stop) Status Members No Information
--- OUTSIDE RECORDS SUMMARY | 2024-01-04 16:53 | XMS_ITS | Referral Summary ---
Author Name Unknown Organization [facility] Address [address] [place] [address] Care Team Providers Care Display Carver Name Role Phone Darius Shaw M.D. Primary Care Provider [phone] Source Comments Patient records contain information from all sites at [facility]. For routine questions regarding patient records, call [phone] during business hours, M-F 8:00 AM - 5:00 PM Central Time. Record requests for emergency care only can be directed to [phone] at any time.[facility] Allergies Active Allergy Reactions Criticality Noted Date [...] week 01/10/2023 How often do you attend zoroastrian or scientology serv ices? Never 01/10/2023 Do you belong to any clubs o r organizations such as zoroastrian groups, unions, fraternal or athletic groups, or [...] Answer Date Recorded PHQ-2 Score 3 01/10/2023 [facility] - Occupational Stress [...] place to sleep or slept in a skilled nursing (including now)? No 01/10/2023 Depression Answer Date [...] on file Medical Devices Implanted Type Area Service Assistant Device Identifier Shelf Expiration Date Model / Serial / Lot Mesh Or Patch Mesh or Patch Heart Description:Amplatzer Septal Occluder Asd Closure Device 34mm - Sanders [id number] Implanted:Qty: 1 on 06/20/2006 Septal Defect Occluder Device Other/Legacy - See Implant Description Description:Device Manufactu rer - [employer]. Device Status Text - [id number]. Procedures Procedure Name Priority Date/Time Associated Diagnosis Comments BI BREAST SCREENING BILATERAL WITH TOMOSYNTHESIS RAD - Routine (most inpatients and all outpatients) 07/30/2023 2:38 PM JUNIOR PROJECT COORDINATOR Screening Mammogram Breast Cancer COLOGUARD Routine 10/28/2022 5:54 PM JUNIOR PROJECT COORDINATOR Screening Cancer Colon VBG & LYTES CG8+, POCT, B Routine 09/30/2022 10:38 AM JUNIOR PROJECT COORDINATOR EXTI LIPID PANEL REFLEX TO DIRECT LDL Routine 07/27/2021 8:57 AM JUNIOR PROJECT COORDINATOR from Last 3 Months or Most Recently Relevant to Health Maintenance Results * BI Breast Screening Bilateral with Tomosynthesis (07/30/2023 2:38 PM JUNIOR PROJECT COORDINATOR) Anatomical Region Laterality Modality Breast, Breast Imaging RST L OS, Breast Imaging ARZ LOS, Breast Imaging FLA LOS Bilateral Mammography 08/01/2023 12:2 8 PM JUNIOR PROJECT COORDINATOR Impressions 08/01/2023 12:33 PM JUNIOR PROJECT COORDINATOR Negative. RECOMMENDATION: ??Annual Screening Mammogram ASSESSMENT: ??BI-RADS: 1: Negative. Narrative 08/01/2023 12:33 PM JUNIOR PROJECT COORDINATOR EXAM: ??BI BREAST SCREENING BILATERAL WITH TOMOSYNTHESIS [...] ASSESSMENT: BI-RADS: 1: Negative. Darius Shaw M.D. [facility] BI PROCEDURES * Cologuard-Sent Out Lab (10/28/2022 5:54 PM JUNIOR PROJECT COORDINATOR) Result Negative Negative 11/03/2022 2:48 AM JUNIOR PROJECT COORDINATOR EXLI Comment: NEGATIVE TEST RESULT. A negative [...] (Yenny Adkins al, N Engl J Med 2014;370(14):1918-3409) The normal value (reference range) for this assay is negative. COLOGUARD RE-SCREENING RECOMMENDATION: Periodic colorectal cancer screening is an important part of preventive healthcare for asymptomatic individuals at average risk for colorectal cancer. ??Following a negative Cologuard result, the [place] [employer] Society and U.S. Multi-Society Task Force screening guidelines recommend a Cologuard re-screening interval of 3 years. References: [place] [employer] Guideline for Colorectal Cancer Screening: https://www.cancer.org/cancer/bcrgt-qjiefj-qdukif/detection- diagnosis-staging/acs-recommendations.html.; Ming DK, Barbra CR, Erna SimsK, Colorectal Cancer Screening: Recommendations for Physicians and Patients from the U.S. Multi-Society Task Force on Colorectal Cancer Screening , Am J Gastroenterology 2017; 112:1969-7273. TEST DESCRIPTION: Composite algorithmic analysis of stool [...] (Yenny Adkins al, N Engl J Med 2014;370(14):1643-9808.) Cologuard may produce a false negative or false positive result (no colorectal cancer or precancerous polyp present at colonoscopy follow up). A negative Cologuard test result does not guarantee the absence of CRC or advanced adenoma (pre-cancer). The current Cologuard screening interval is every 3 years. ([place] [employer] Society and U.S. Multi-Society Task Force). Cologuard performance data in a 10,000 patient pivotal study using colonoscopy as the reference method can be accessed at the following location: www.[employer]/results. Additional description of the Cologuard test process, warnings and precautions can be found at www.cologuard.com. Stool (Stool) 10/28/2022 5:5 4 PM JUNIOR PROJECT COORDINATOR 10/30/2022 1:57 PM JUNIOR PROJECT COORDINATOR Darius Shaw M.D. LAB BODY FLUIDS AND STOOLS ORDERABLES [facility] [address] [place] [address] EXLI [employer] [address] [place] [address], [address] [place] [address] * Venous Blood Gas and Electrolytes CG8+, POCT (09/30/2022 10:38 AM JUNIOR PROJECT COORDINATOR) Pathologist [facility] Sample Site, POCT Venstick 09/30/2022 10:54 AM JUNIOR PROJECT COORDINATOR PCSM Comment: ----ADDITIONAL INFORMATION---- Performed at the Point of Care pH, Venous, POCT, B 7.43 7.32 - 7.43 09/30/2022 10:54 AM JUNIOR PROJECT COORDINATOR PCSM Comment: ----ADDITIONAL INFORMATION---- Performed at the Point of Care pCO2, Venous, POCT, B 46 41 - 51 mm Hg 09/30/2022 10:54 AM JUNIOR PROJECT COORDINATOR PCSM Comment: ----ADDITIONAL INFORMATION---- Performed at the Point of Care pO2, Venous, POCT, B 25 Not Applicable mm Hg 09/30/2022 10:54 AM JUNIOR PROJECT COORDINATOR PCSM Comment: ----ADDITIONAL INFORMATION---- Performed at the Point of Care Base Excess, Venous, POCT, B 6 Not Applicable mmol/L 09/30/2022 10:54 AM JUNIOR PROJECT COORDINATOR PCSM Comment: ----ADDITIONAL INFORMATION---- Performed at the Point of Care HCO3, Venous, POCT, B 31 Not Applicable mmol/L 09/30/2022 10:54 AM JUNIOR PROJECT COORDINATOR PCSM Comment: ----ADDITIONAL INFORMATION---- Performed at the Point of Care Sodium, POCT, B 140 135 - 145 mmol/L 09/30/2022 10:54 AM JUNIOR PROJECT COORDINATOR PCSM Comment: ----ADDITIONAL INFORMATION---- Performed at the Point of Care Potassium, POCT, B 4.3 3.6 - 5.2 mmol/L 09/30/2022 10:54 AM JUNIOR PROJECT COORDINATOR PCSM Comment: ----ADDITIONAL INFORMATION---- Performed at the Point of Care Calcium, Ionized, POCT, B 5.20 4.65 - 5.30 mg/dL 09/30/2022 10:54 AM JUNIOR PROJECT COORDINATOR PCSM Comment: ----ADDITIONAL INFORMATION---- Performed at the Point of Care Glucose, POCT, B 117 70 - 140 mg/dL 09/30/2022 10:54 AM JUNIOR PROJECT COORDINATOR PCSM Comment: ----ADDITIONAL INFORMATION---- Performed at the Point of Care Hematocrit, POCT, B 44.0 35.5 - 44.9 % 09/30/2022 10:54 AM JUNIOR PROJECT COORDINATOR PCSM Comment: ----ADDITIONAL INFORMATION---- Performed at the Point of Care Blood 09/30/2022 10:3 8 AM JUNIOR PROJECT COORDINATOR 09/30/2022 10:54 AM JUNIOR PROJECT COORDINATOR Unknown Provider LAB POCT ORDERABLES - DEVICE POC RST [facility] [address] [place] [address], [facility] PCSM [facility] Laboratories [facility] POC [address] [place] [address] from Last 3 Months or Most Recently Relevant to Health Maintenance Advance Directives For more information, please contact: [phone] * Full Code (Latest Code Status on File) Date Activated Date Inactivated Comments 09/30/2022 4:41 PM 10/02/2022 6:08 PM Question Answer Comments Full Code: Discussed Care Teams Display Carver Relationship Specialty Start Date End Date Darius Shaw M.D. [id number] [place] [phone] PCP - General Family Medicine 09/27/22
--- OUTSIDE RECORDS SUMMARY | 2024-01-04 16:53 | XMS_ITS | Referral Summary ---
Author Name Unknown Organization [facility] Address [address] [place] [address] Care Team Providers Care Machinist Apprentice Name Role Phone Yung Madrigal MD Unavailable Unavailable Winston Villatoro OD Unavailable [phone] Denise Woodson Ra, APRN PAPER ROLLER Unavailable [phone] Denise Woodson Ra, APRN PAPER ROLLER Primary Care Provid er Allergies Active Allergy [...] (FLONASE) 50 MCG/ACT nasal sprayIndications:Chr onic rhinitis [place] 2 sprays into both nostrils daily 16 [...] Comments Blood Pressure 108/68 07/27/2021 8:28 AM STEAM BOX TENDER Pulse 68 07/27/2021 8:28 AM STEAM BOX TENDER Temperature 36.9 ??C (98.4 ??F) 07/27/2021 8:28 AM CS T Respiratory Rate 12 07/27/2021 8:28 AM STEAM BOX TENDER Oxygen Saturation 97% 07/27/2021 8:28 AM STEAM BOX TENDER Inhaled Oxygen Concentration - - Weight 99.3 kg (219 lb) 07/27/2021 8:28 AM STEAM BOX TENDER Height 174.6 cm (5' 8.75) 02/08/2021 10:22 AM C DT Body Mass Index 32.58 02/08/2021 10:22 AM CDT Plan of Treatment Upcoming Encounters Date Type Department Care Team (Late st Contact Info) Description 01/15/2024 3:30 PM CDT [facility] [address] [place] [address] Jacque Alexis, BARRERA PAPER ROLLER [address] [place], [place] [phone] Procedures Procedure Name Priority Date/Time Associated Diagnosis Comments MA SCREENING BILATERAL W/ MAT Routine 04/25/2022 5:03 PM CDT Visit for screening mammogram COMPREHENSIVE METABOLIC PANEL Routine 07/27/2021 8:57 AM STEAM BOX TENDER Routine general medical examination at a [facility] care facility CARDIOVASCULAR SCREENING; LDL GOAL LESS THAN 160 LIPID REFLEX TO DIRECT LDL PANEL Routine 07/27/2021 8:57 AM STEAM BOX TENDER CARDIOVASCULAR SCREENING; LDL GOAL LESS THAN 160 [...] patient. JEVON HOWELL MD Denise Woodson APRN PAPER ROLLER IMG MAMMOGRA PHY ORDERABLES * (ABNORMAL) Lipid panel reflex to direct LDL Fasting (07/27/2021 8:57 AM STEAM BOX TENDER) Cholesterol 202(H) <200 mg/dL 07/28/2021 10:12 AM STEAM BOX TENDER [facility] Triglycerides 91 <150 mg/dL 07/28/2021 10:12 AM STEAM BOX TENDER [facility] Direct Measure HDL 56 >=50 mg/dL 07/28/2021 10:12 AM STEAM BOX TENDER [facility] LDL Cholesterol Calculated 128(H) <=100 mg/dL 07/28/2021 10:12 AM STEAM BOX TENDER [facility] Non HDL Cholesterol 146(H) <130 mg/dL 07/28/2021 10:12 AM STEAM BOX TENDER [facility] Patient Fasting > 8hrs? Yes 07/28/2021 10:12 AM STEAM BOX TENDER [facility] Blood STRUCTURE OF RIGHT UPPER LIMB / Unknown Venipuncture / Unknown 07/27/2021 8:57 AM STEAM BOX TENDER 07/27/2021 8:57 AM STEAM BOX TENDER Narrative [facility] - 07/28/2021 10:12 AM STEAM BOX TENDER Cholesterol Desirable: ??<200 mg/dL Triglycerides Normal: ??Less [...] equal to 220 mg/dL Denise Woodson APRN PAPER ROLLER LAB - BLOOD ORDERABLES [facility] [address] Lab (no room number, 1st floor of clinic) [place] [address], [facility] [phone] * Comprehensive metabolic panel (BMP + Alb, Alk Phos, ALT, AST, Total. Bili, TP) (07/27/2021 8:57 AM STEAM BOX TENDER) Sodium 139 133 - 144 mmol/L 07/28/2021 10:12 AM STEAM BOX TENDER [facility] Potassium 4.0 3.4 - 5.3 mmol/L 07/28/2021 10:12 AM STEAM BOX TENDER [facility] Chloride 105 94 - 109 mmol/L 07/28/2021 10:12 AM STEAM BOX TENDER [facility] Carbon Dioxide (CO2) 26 20 - 32 mmol/L 07/28/2021 10:12 AM STEAM BOX TENDER [facility] Anion Gap 8 3 - 14 mmol/L 07/28/2021 10:12 AM STEAM BOX TENDER [facility] Urea Nitrogen 20 7 - 30 mg/dL 07/28/2021 10:12 AM STEAM BOX TENDER [facility] Creatinine 0.74 0.52 - 1.04 mg/dL 07/28/2021 10:12 AM STEAM BOX TENDER [facility] Calcium 8.8 8.5 - 10.1 mg/dL 07/28/2021 10:12 AM STEAM BOX TENDER [facility] Glucose 95 70 - 99 mg/dL 07/28/2021 10:12 AM STEAM BOX TENDER [facility] Alkaline Phosphatase 67 40 - 150 U/L 07/28/2021 10:12 AM STEAM BOX TENDER [facility] AST 8 0 - 45 U/L 07/28/2021 10:12 AM STEAM BOX TENDER [facility] ALT 18 0 - 50 U/L 07/28/2021 10:12 AM STEAM BOX TENDER [facility] Protein Total 7.6 6.8 - 8.8 g/dL 07/28/2021 10:12 AM STEAM BOX TENDER [facility] Albumin 3.4 3.4 - 5.0 g/dL 07/28/2021 10:12 AM STEAM BOX TENDER [facility] Bilirubin Total 0.5 0.2 - 1.3 mg/dL 07/28/2021 10:12 AM STEAM BOX TENDER [facility] GFR Estimate >90 >60 mL/min/1.7 3m2 07/28/2021 10:12 AM STEAM BOX TENDER [facility] Comment:As of March 26, 2021, eGFR is calculated by the CKD-EPI creatinine equation, without race adjustment. eGFR can be influenced by muscle mass, exercise, and diet. The reported eGFR is an estimation only and is only applicable if the renal function is stable. Blood STRUCTURE OF RIGHT UPPER LIMB / Unknown Venipuncture / Unknown 07/27/2021 8:57 AM STEAM BOX TENDER 07/27/2021 8:57 AM STEAM BOX TENDER Denise Woodson APRN PAPER ROLLER LAB - BLOOD ORDERABLES [facility] [address] Lab (no room number, 1st floor of clinic) [place] [address], [facility] [phone] from Last 3 Months or Most Recently Relevant to Health Maintenance Care Teams Machinist Apprentice Relationship Specialty Start Date End Date Yung Madrigal MD RETIRED PCP - Orthopaedics Orthopedics 08/26/12 Winston Villatoro OD [facility] [address] [facility] [address] [place] [address] PCP - Ophthalmology Ophthalmology 02/11/13 Denise Woodson Ra, APRN PAPER ROLLER [address] [place] [address] PCP - General Family Practice 09/21/20 Denise Woodson Ra, APRN PAPER ROLLER [address] [address] [address] Assigned PCP 07/17/20
--- OUTSIDE RECORDS SUMMARY | 2024-01-04 16:53 | XMS_ITS | Encounter Summary ---
Author Name Unknown Organization [facility] Address [address] [place] [address] Care Team Providers Care Early Intervention Specialist Name Role Phone Darius Shaw M.D. Primary Care Provider Encounter Details Date Type Department Care Team (Late st Contact Info) Description 05/12/2013 Historical Ophthalmology [facility] Jonathan Bonilla M.D. [address] [place] [phone] Social History Tobacco Use Types Packs/Day Years [...] corneal thickness CDM Reports - EYEGEN Id: [id number] Status: Fnl documented in this encounter Plan of Treatment Not on file documented as of this encounter Visit Diagnoses Not on filedocumented in this encounter Additional Health Concerns Infection Onset Date Last Indicated Resolved Time COVID19 Pending 07/11/2020 07/11/2020 07/12/2020 5 :56 PM CDT COVID19 Pending 07/17/2020 07/17/2020 07/17/2020 9 :18 PM CLINICAL ABSTRACTOR COVID19 Pending 09/19/2020 09/19/2020 10/09/2020 4 :45 AM CLINICAL ABSTRACTOR COVID19 Pending 10/25/2020 10/26/2020 10/27/2020 9 :59 AM CLINICAL ABSTRACTOR COVID19 Pending 06/03/2021 06/03/2021 06/03/2021 9 :40 AM CDT COVID19 Pending 06/03/2021 06/03/2021 06/03/2021 1 0:36 PM CDT COVID19 Pending 08/09/2021 08/09/2021 08/11/2021 1 2:57 AM CLINICAL ABSTRACTOR COVID19 Pending 06/26/2022 06/26/2022 06/26/2022 5 :47 PM CDT Assessment Noted Time PHQ-9 Depression Total Score: 8 09/18/19 13 7:41 AM CLINICAL ABSTRACTOR documented as of this encounter Care Teams Early Intervention Specialist Relationship Specialty Start Date End Date Darius Shaw M.D. [address] [address] PCP - General Family Medicine 09/27/22 documented as of this encounter
--- OUTSIDE RECORDS SUMMARY | 2024-01-04 16:54 | XMS_ITS | Encounter Summary ---
Author Name Unknown Organization [facility] Address [address] [place] [address] Care Team Providers Care Outsole Scheduler Name Role Phone Timmy Perez MD Unavailable Unavailable Encounter Details Date Type Department Care Team (Late st Contact Info) Description 01/17/2012 3:20 PM CDT [facility] in [address] [phone] Luis Walsh [address] [place] [address] Interface, MD [place] Social History Tobacco Use [...] Description 01/15/2024 3:30 PM CDT [facility] [address] [place] [phone] Jacque Alexis APRN [facility] [address] [place] [address] documented as of this encounter Visit Diagnoses Not on filedocumented in this encounter Care Teams Outsole Scheduler Relationship Specialty Start Date End Date Timmy Perez MD PCP - Obstetrics/Gynecology 03/02/0807/18 documented as of this encounter
--- OUTSIDE RECORDS SUMMARY | 2024-01-04 16:54 | XMS_ITS | Encounter Summary ---
Author Name Unknown Organization [facility] Address [address] [place] [address] Care Team Providers Care Display Screen Fabricator Name Role Phone Yung Madrigal MD Unavailable Unavailable Winston Villatoro OD Unavailable [phone] Serum, Clara Garland MD Primary Care Provider Serum, Clara Garland MD Unavailable [phone] Denise Woodson Ra, APRN BUSINESS ANALYTICS DIRECTOR Unavailable [phone] Denise Woodson Ra, APRN BUSINESS ANALYTICS DIRECTOR Primary Care Provid er Encounter Details Date Type Department Care Team (Late st Contact Info) Description 01/21/2019 MyC Medical Advice [address] [place] [phone] [facility] Social History Tobacco Use Types Packs/Day Years [...] Description 01/15/2024 3:30 PM CDT Office Visit [facility] [address] [place] [phone] Jacque Alexis APRN BUSINESS ANALYTICS DIRECTOR [address] [place] [address] documented as of this encounter Visit Diagnoses Not on filedocumented in this encounter Additional Health Concerns Assessment Noted Time PHQ-9 Depression Total Score: 0 02/09/20 17 7:29 AM CDT documented as of this encounter Care Teams Display Screen Fabricator Relationship Specialty Start Date End Date Yung Madrigal MD RETIRED PCP - Orthopaedics Orthopedics 08/26/12 Winston Villatoro OD [facility] [address] [place] [address] PCP - Ophthalmology Ophthalmology 02/11/13 Clara Cornell MD [facility] [place] [address] [place] [address] PCP - General Internal Medicine 02/07/17 09/20/20 Denise Woodson Ra, APRN BUSINESS ANALYTICS DIRECTOR [address] [place] [address] PCP - General Family Practice 09/21/20 Clara Cornell MD [address] [place] [address] Assigned PCP 01/17/17 07/16/20 Denise Woodson Ra, APRN BUSINESS ANALYTICS DIRECTOR [address] [place] [address] Assigned PCP 07/17/20 documented as of this encounter
--- OUTSIDE RECORDS SUMMARY | 2024-01-04 16:54 | XMS_ITS | Encounter Summary ---
Author Name Unknown Organization [place] Address [address] [place] [address]. [place] [address] Care Team Providers Care Oil Spraying Machine Operator Name Role Phone Yung Madrigal MD Unavailable Unavailable Winston Villatoro OD Unavailable [phone] Denise Woodson Ra, APRN CEMENT MASON APPRENTICE Unavailable + [phone] Denise Woodson Ra, APRN CEMENT MASON APPRENTICE Primary Care Provid er Reason for Visit * Reason Onset Date Comments URI 09/21/2020 Encounter Details Date Type Department Care Team (Late st Contact Info) Description 09/21/2020 [facility] [place] [facility] [facility] [address] [place] [address] Denise Woodson Ra, APRN CEMENT MASON APPRENTICE [address] [place] [address] URI Social History Tobacco Use [...] COVID-19? No / Unsure 09/21/2020 12:04 PM TAX ASSOCIATE ATTORNEY documented as of this encounter Miscellaneous Notes * Telephone Encounter - Kati Yang RN - 09/21/2020 10:54 AM CST [employer] message sent to patient. Kati Yang RN ASSOCIATE ATTORNEY documented in this encounter Plan of Treatment Upcoming Encounters Date Type Department Care Team (Late st Contact Info) Description 01/15/2024 3:30 PM CDT [facility] [address] [place] [address] Jacque Alexis APRN CEMENT MASON APPRENTICE [address] [place], [place] [address] documented as of this encounter Visit Diagnoses Not on filedocumented in this encounter Additional Health Concerns Assessment Noted Time PHQ-9 Depression Total Score: 0 06/15/20 19 7:09 PM CDT documented as of this encounter Care Teams Oil Spraying Machine Operator Relationship Specialty Start Date End Date Yung Madrigal MD RETIRED PCP - Orthopaedics Orthopedics 08/26/12 Winston Villatoro OD [facility] [place] [address] [facility] [address] [place] [address] PCP - Ophthalmology Ophthalmology 02/11/13 Denise Woodson Ra, APRN CEMENT MASON APPRENTICE [address] [place] [address] PCP - General Family Practice 09/21/20 Denise Woodson Ra, APRN CEMENT MASON APPRENTICE [address] [place] [address] Assigned PCP 07/17/20 documented as of this encounter
--- OUTSIDE RECORDS SUMMARY | 2024-01-04 16:54 | XMS_ITS | Encounter Summary ---
Author Name Unknown Organization [place] Address [address] [place] [address]. [place] [address] Care Team Providers Care Borderer Name Role Phone Yung Madrigal MD Unavailable Unavailable Winston Villatoro OD Unavailable Denise Woodson Ra, APRN REAL ESTATE TEACHER Unavailable + [phone] Denise Woodson Ra, APRN REAL ESTATE TEACHER Primary Care Provid er Reason for Visit * Reason Comments Medication Refill Encounter Details Date Type Department Care Team (Late st Contact Info) Description 02/19/2022 Refill [facility] [address] [place] [address] Denise Woodson Ra, APRN REAL ESTATE TEACHER [address] [place] [address] Medication Refill Social History Tobacco [...] Description 01/15/2024 3:30 PM CDT Office Visit [facility] [address] [facility] [place] [address] Jacque Alexis APRN REAL ESTATE TEACHER [address] [place] [address] documented as of this encounter Visit Diagnoses Diagnosis Moderate persistent asthma without complication Unspecified asthma documented in this encounter Additional Health Concerns Assessment Noted Time PHQ-9 Depression Total Score: 0 06/23/20 21 4:11 PM CDT documented as of this encounter Care Teams Borderer Relationship Specialty Start Date End Date Yung Madrigal MD RETIRED PCP - Orthopaedics Orthopedics 08/26/12 Winston Villatoro OD [facility] [address] [facility] [address] [place] [address] PCP - Ophthalmology Ophthalmology 02/11/13 Denise Woodson Ra, APRN REAL ESTATE TEACHER [address] [place] [address] PCP - General Family Practice 09/21/20 Denise Woodson Ra, APRN REAL ESTATE TEACHER [address] [place] [address] Assigned PCP 07/17/20 documented as of this encounter
--- OUTSIDE RECORDS SUMMARY | 2024-01-04 16:54 | XMS_ITS | Encounter Summary ---
Author Name Unknown Organization [place] Address [address] [place] [address] Care Team Providers Care Heel Cover Softener Name Role Phone Yung Madrigal MD Unavailable Unavailable Winston Villatoro OD Unavailable [phone] Serum, Clara Garland MD Primary Care Provider Serum, Clara Garland MD Unavailable [phone] Denise Woodson Ra, APRN RESIDENTIAL MONITOR Unavailable [phone] Denise Woodson Ra, APRN RESIDENTIAL MONITOR Primary Care Provid er Reason for Visit * Reason Onset Date Comments LAB REQUEST 06/16/2019 Encounter Details Date Type Department Care Team (Late st Contact Info) Description 06/16/2019 [facility] [address] [place] [address] Serum, Clara Garland MD [address] [place] [address] LAB REQUEST Social History Tobacco [...] RN - 06/16/2019 4:17 PM CDT See [employer] message regarding yesterday's appointment. Patient requesting to check TSH and antibodies for pt reported possible yonas's. Pended TSH for provider review. documented in this encounter Plan of Treatment Upcoming Encounters Date Type Department Care Team (Late st Contact Info) Description 01/15/2024 3:30 PM CDT Office Visit [facility] [address] [place] [address] Jacque Alexis APRN RESIDENTIAL MONITOR [address] [place] [address] documented as of this encounter Results * Follicle stimulating hormone (06/22/2019 3:36 PM CDT) FSH 9.5 IU/L 06/23/2019 2:32 PM CDT [facility] Comment: FSH Reference Range Female: Follicular ?2.5-10.2 ?Mid-cycle ? 3.4-33.4 ?Luteal ?1.5-9.1 ?Postmenopausal ??23.0-116.3 Blood specimen (specimen) 06/22/2019 3:36 PM CDT 06/22/2019 3:37 PM CDT Clara Cornell MD LAB - BLOOD ORD ERABLES [facility] [address] [place] [address] * TSH with free T4 reflex FUTURE anytime (06/22/2019 3:36 PM CDT) TSH 3.30 0.40 - 4.00 mU/L 06/23/2019 3:12 PM CDT [facility] Blood specimen (specimen) 06/22/2019 3:36 PM CDT 06/22/2019 3:37 PM CDT Clara Cornell MD LAB - BLOOD ORD ERABLES [facility] [address] [place] [address] documented in this encounter Visit Diagnoses Diagnosis Anti-TPO antibodies present- Primary Other and unspecified nonspecific immunological findings Excessive sweating Generalized hyperhidrosis documented in this encounter Additional Health Concerns Assessment Noted Time PHQ-9 Depression Total Score: 0 06/15/20 19 7:09 PM CDT documented as of this encounter Care Teams Heel Cover Softener Relationship Specialty Start Date End Date Yung Madrigal MD RETIRED PCP - Orthopaedics Orthopedics 08/26/12 Winston Villatoro OD [facility] [place] [address] [place] [address] PCP - Ophthalmology Ophthalmology 02/11/13 Clara Cornell MD [facility] [place] [address] [place] [address] PCP - General Internal Medicine 02/07/17 09/20/20 Denise Woodson Ra, APRN RESIDENTIAL MONITOR [address] [place] [address] PCP - General Family Practice 09/21/20 Clara Cornell MD [address] [place] [address] Assigned PCP 01/17/17 07/16/20 Denise Woodson Ra, APRN RESIDENTIAL MONITOR [address] [place] [address] Assigned PCP 07/17/20 documented as of this encounter
--- OUTSIDE RECORDS SUMMARY | 2024-01-04 16:54 | XMS_ITS | Encounter Summary ---
Author Name Unknown Organization [place] Address [address] [place] [address]. [place] [address] Care Team Providers Care Vehicle Monitor Technician Name Role Phone Yung Madrigal MD Unavailable Unavailable Winston Villatoro OD Unavailable [phone] Denise Woodson Ra, APRN SALES PROGRAM MANAGER Unavailable Denise Woodson Ra, APRN SALES PROGRAM MANAGER Primary Care Provid er Reason for Visit * Reason Onset Date Comments MyChart Communication 06/08/2021 Abdominal pain Encounter Details Date Type Department Care Team (Late Contact Info) Description 06/08/2021 My[facility] Medical Advice [facility] [address] [place] [address] Denise Woodson Ra, APRN SALES PROGRAM MANAGER [address] [place] [address] MyChart Communication (Abdominal pain) Social [...] Upcoming Encounters Date Type Department Care Team ([facility] [address] Contact Info) Description 01/15/2024 3:30 PM CDT Office Visit [facility] [address] [place] [address] Jacque Alexis APRN SALES PROGRAM MANAGER [address] [place] [address] documented as of this encounter Visit Diagnoses Not on filedocumented in this encounter Additional Health Concerns Assessment Noted Time PHQ-9 Depression Total Score: 0 01/05/20 21 9:31 AM CDT documented as of this encounter Care Teams Vehicle Monitor Technician Relationship Specialty Start Date End Date Yung Madrigal MD RETIRED PCP - Orthopaedics Orthopedics 08/26/12 Winston Villatoro OD [facility] [place] [address] [facility] [address] [place] [address] PCP - Ophthalmology Ophthalmology 02/11/13 Denise Woodson Ra, APRN SALES PROGRAM MANAGER [address] [place] [address] PCP - General Family Practice 09/21/20 Denise Woodson Ra, APRN SALES PROGRAM MANAGER [address] [place] [address] Assigned PCP 07/17/20 documented as of this encounter
--- OUTSIDE RECORDS SUMMARY | 2024-01-04 16:54 | XMS_ITS | Encounter Summary ---
Author Name Unknown Organization [place] Address [address] [place] [address] Care Team Providers Care Web Development Intern Name Role Phone Timmy Perez MD Unavailable Unavailable Yung Madrigal MD Unavailable Unavailable Winston Villatoro OD Unavailable [phone] Apple Sykes MD Primary Care Provider [phone] Westley Bates MD Unavailable [phone] Alessandra Cabrales APRN BROKERAGE CLERK Primary Car e Provider Serum, Clara Garland MD Primary Care Provider Serum, Clara Garland MD Unavailable [phone] Serum, Clara Garland MD Unavailable Denise Woodson Ra, APRN BROKERAGE CLERK Unavailable [phone] Denise Woodson Ra, APRN, CNP Primary Care Provid er Reason for Visit * Reason Onset Date Comments MyChart Communication 05/30/2013 Encounter Details Date Type Department Care Team (Latest Contact Info) Description 05/30/2013 MyC Medical Advice [facility] [address] [place] [address] Apple Sykes MD [address] [place] [address] MyChart Communication Social History Tobacco Use Types [...] 3:30 PM CDT Office Visit [facility] [address] [place] [address] Jacque Alexis APRN BROKERAGE CLERK [address] [place] [address] documented as of this encounter Visit Diagnoses Not on filedocumented in this encounter Care Teams Web Development Intern Relationship Specialty Start Date End Date Timmy Perez MD PCP - Obstetrics/Gynecology 03/02/08 08/07/15 Yung Madrigal MD RETIRED PCP - Orthopaedics Orthopedics 08/26/12 Winston Villatoro OD [facility] [place] [address] [place] [address] PCP - Ophthalmology Ophthalmology 02/11/13 Apple Sykes MD [facility] [place] [address] [place] [address] PCP - General Family Practice 05/04/13 10/25/16 Westley Bates MD XXX RETIRED [place] [address] [place] [address] PCP - ENT Otolaryngology 05/14/13 07/28/18 Alessandra Cabrales APRN BROKERAGE CLERK [address] [place] [address] [place] [address] PCP - General Nurse Practitioner 10/26/16 02/06/17 Clara Cornell MD [address] [facility] [place] [address] PCP - General Internal Medicine 02/07/17 09/20/20 Clara Cornell MD [address] [place] [address] PCP - Assigned PCP 01/17/17 11/18/18 Denise Woodson Ra, APRN BROKERAGE CLERK [address] [place] [address] PCP - General Family Practice 09/21/20 Clara Cornell MD [address] [facility] [place] [address] Assigned PCP 01/17/17 07/16/20 Denise Woodson Ra, APRN BROKERAGE CLERK [address] [place] [address] Assigned PCP 07/17/20 documented as of this encounter
--- OUTSIDE RECORDS SUMMARY | 2024-01-04 16:54 | XMS_ITS | Encounter Summary ---
Author Name Unknown Organization [place] Address [address] [place] [address] Care Team Providers Care Public Health Educator Name Role Phone Timmy Perez MD Unavailable Unavailable Yung Madrigal MD Unavailable Unavailable Frw, None Primary Care Provider Unavailrigoberto e Winston Villatoro OD Unavailable [phone] Apple Sykes MD Primary Care Provider [phone] Westley Bates MD Unavailable [phone] Alessandra Cabrales APRN PUBLIC INFORMATION RELATIONS MANAGER Primary Car e Provider Serum, Clara Garland MD Primary Care Provider Serum, Clara Garland MD Unavailable [phone] Serum, Clara Garland MD Unavailable Denise Woodson Ra, APRN PUBLIC INFORMATION RELATIONS MANAGER Unavailable [phone] Denise Woodson Ra, APRN PUBLIC INFORMATION RELATIONS MANAGER Primary Care Provid er Reason for Visit * Reason Onset Date Comments Medication Question 04/21/2013 Farhan Saez [facility] Encounter Details Date Type Department Care Team (Late st Contact Info) Description 04/21/2013 Telephone [facility] [address] [place] [address] [place] [address] Janna Rodriguez, quarter seamer Question (Farhan [facility]) Social History Tobacco Use Types Packs/Day [...] Description 01/15/2024 3:30 PM CDT Office Visit [facility] [address] [place] [address] Jacque Alexis APRN PUBLIC INFORMATION RELATIONS MANAGER [address] [place], [place] [address] documented as of this encounter Visit Diagnoses Not on filedocumented in this encounter Care Teams Public Health Educator Relationship Specialty Start Date End Date Timmy Perez MD PCP - Obstetrics/Gynecology 03/02/08 08/07/15 Yung Madrigal MD RETIRED PCP - Orthopaedics Orthopedics 08/26/12 Frw, None PCP - General Family Practice 08/26/12 05/03/[address] [facility] [place] [address] [place] [address] PCP - Ophthalmology Ophthalmology 02/11/[address] [facility] [place] [address] [place] [address] PCP - General Family Practice 05/04/13 10/25/16 Westley Bates MD XXX RETIRED XXX [address] [place] [address] PCP - ENT Otolaryngology 05/14/13 07/28/18 GeorginaAlessandra Gómez APRN PUBLIC INFORMATION RELATIONS MANAGER [address] [facility] [place] [address] PCP - General Nurse Practitioner 10/26/16 02/06/17 Clara Cornell MD [address] [facility] [place] [address] PCP - General Internal Medicine 02/07/17 09/20/20 Clara Cornell MD [address] [place] [address] PCP - Assigned PCP 01/17/17 11/18/18 Denise Woodson Ra, ASW SPECIALIST PUBLIC INFORMATION RELATIONS MANAGER [address] [place] [address] PCP - General Family Practice 09/21/20 Clara Cornell MD [address] [place] [address] Assigned PCP 01/17/17 07/16/20 Denise Woodson Ra, ASW SPECIALIST PUBLIC INFORMATION RELATIONS MANAGER [address] [place] [address] Assigned PCP 07/17/20 documented as of this encounter
--- OUTSIDE RECORDS SUMMARY | 2024-01-04 16:54 | XMS_ITS | Encounter Summary ---
Author Name Unknown Organization [place] Address [address] [place] [address] Care Team Providers Care Flight Engineer Instructor Name Role Phone Timmy Perez MD Unavailable Unavailable Yung Madrigal MD Unavailable Unavailable Winston Villatoro OD Unavailable [phone] Apple Sykes MD Primary Care Provider [phone] Westley Bates MD Unavailable [phone] Alessandra Cabrales APRN AIR CONDITIONING SERVICE TECHNICIAN Primary Car e Provider Serum, Clara Garland MD Primary Care Provider Serum, Clara Garland MD Unavailable [phone] Serum, Clara Garland MD Unavailable [phone] Denise Woodson Ra, APRN AIR CONDITIONING SERVICE TECHNICIAN Unavailable + [phone] Denise Woodson Ra, APRN, CNP Primary Care Provid er Encounter Details Date Type Department Care Team (Late st Contact Info) Description 05/19/[address] [facility] [place] Orthopedics [address] [place] [phone] Yung Madrigal MD RETIRED Social History Tobacco [...] 3:30 PM CDT Office Visit [facility] [address] [place] [address] Jacque Alexis APRN AIR CONDITIONING SERVICE TECHNICIAN [address] [place] [address] documented as of this encounter Visit Diagnoses Not on filedocumented in this encounter Care Teams Flight Engineer Instructor Relationship Specialty Start Date End Date Timmy Perez MD PCP - Obstetrics/Gynecology 03/02/08 08/07/15 Yung Madrigal MD RETIRED PCP - Orthopaedics Orthopedics 08/26/12 Winston Villatoro OD [facility] [place] [address] [place] [address] PCP - Ophthalmology Ophthalmology 02/11/13 Apple Sykes MD [facility] [place] [address] [place] [address] PCP - General Family Practice 05/04/13 10/25/16 Westley Bates MD XXX RETIRED XXX [address] [place] [address] PCP - ENT Otolaryngology 05/14/13 07/28/18 Alessandra Cabrales APRN AIR CONDITIONING SERVICE TECHNICIAN [address] [facility] [place] [address] PCP - General Nurse Practitioner 10/26/16 02/06/17 Clara Cornell MD [address] [facility] [place] [address] PCP - General Internal Medicine 02/07/17 09/20/20 Clara Cornell MD [address] [place] [address] PCP - Assigned PCP 01/17/17 11/18/18 Denise Woodson Ra, APRN AIR CONDITIONING SERVICE TECHNICIAN [address] [place] [address] PCP - General Family Practice 09/21/20 Clara Cornell MD [address] [place] [address] Assigned PCP 01/17/17 07/16/20 Denise Woodson Ra, APRN AIR CONDITIONING SERVICE TECHNICIAN [address] [place] [address] Assigned PCP 07/17/20 documented as of this encounter
--- OUTSIDE RECORDS SUMMARY | 2024-01-04 16:54 | XMS_ITS | Encounter Summary ---
Author Name Unknown Organization [place] Address [address] [place] [address] Care Team Providers Care Splicer Apprentice Name Role Phone Timmy Perez MD Unavailable Unavailable Yung Madrigal MD Unavailable Unavailable Frw, None Primary Care Provider Unavailrigoberto e Winston Villatoro OD Unavailable [phone] Apple Sykes MD Primary Care Provider [phone] Westley Bates MD Unavailable [phone] GeorginaAlessandra Gómez APRN SENIOR FINANCIAL CONSULTANT Primary Car e Provider Serum, Clara Garland MD Primary Care Provider Serum, Clara Garland MD Unavailable [phone] Serum, Clara Garland MD Unavailable [phone] Denise Woodson Ra, APRN SENIOR FINANCIAL CONSULTANT Unavailable + [phone] Denise Woodson Ra, APRN SENIOR FINANCIAL CONSULTANT Primary Care Provid er Encounter Details Date Type Department Care Team (Late st Contact Info) Description 01/30/2006 [facility] in [place] Inpatient Dept [address] [place] [address] Frw, Inpatient Provider Social History Tobacco Use [...] pain. PROCEDURE: TOTAL VAGINAL HYSTERECTOMY. SURGEON: Chris DINING ROOM COORDINATOR: Radha ANESTHESIA: Spinal ESTIMATED BLOOD LOSS: 100 [...] recovery room awake and in good condition. Tnaisha EdwardsS/bianca cc: documented in this encounter Plan of Treatment Upcoming Encounters Date Type Department Care Team (Late st Contact Info) Description 01/15/2024 3:30 PM CDT [facility] [address] [place] [address] Jacque Alexis APRN SENIOR FINANCIAL CONSULTANT [address] [place] [address] documented as of this encounter Visit Diagnoses Not on filedocumented in this encounter Care Teams Splicer Apprentice Relationship Specialty Start Date End Date Timmy Perez MD PCP - Obstetrics/Gynecology 03/02/08 08/07/15 Yung Madrigal MD RETIRED PCP - Orthopaedics Orthopedics 08/26/12 Frw, None PCP - General Family Practice 08/26/12 05/03/13 Winston Villatoro, OD [facility] [place] [address] [place] [address] PCP - Ophthalmology Ophthalmology 02/11/13 Apple Sykes MD [facility] [place] [address] [place] [address] PCP - General Family Practice 05/04/13 10/25/16 Westley Bates MD XXX RETIRED XXX [address] [place] [address] PCP - ENT Otolaryngology 05/14/13 07/28/18 Alessandra Cabrales APRN SENIOR FINANCIAL CONSULTANT [address] [facility] [place] [address] PCP - General Nurse Practitioner 10/26/16 02/06/17 Clara Cornell MD [address] [facility] [place] [address] PCP - General Internal Medicine 02/07/17 09/20/20 Clara Cornell MD [address] [place] [address] PCP - Assigned PCP 01/17/17 11/18/18 Denise Woodson Ra, APRN SENIOR FINANCIAL CONSULTANT [address] [place] [address] PCP - General Family Practice 09/21/20 Clara Cornell MD [address] [place] [address] Assigned PCP 01/17/17 07/16/20 Denise Woodson Ra, APRN SENIOR FINANCIAL CONSULTANT [address] [place] [address] Assigned PCP 07/17/20 documented as of this encounter
--- OUTSIDE RECORDS SUMMARY | 2024-01-04 16:54 | XMS_ITS | Encounter Summary ---
Author Name Unknown Organization [place] Address [address] [place] [address] Care Team Providers Care Supervisor Sanding Name Role Phone Yung Madrigal MD Unavailable Unavailable Winston Villatoro OD Unavailable [phone] Denise Woodson Ra, APRN PNEUMATIC JACK OPERATOR Unavailable + [phone] Denise Woodson Ra, APRN PNEUMATIC JACK OPERATOR Primary Care Provid er Encounter Details Date Type Department Care Team (Late Contact Info) Description 01/22/2022 [facility] [address] [place] [address] Angelo Escobar Social History Tobacco [...] Description 01/15/2024 3:30 PM CDT [facility] [address] [place] [address] Jacque Alexis APRN PNEUMATIC JACK OPERATOR [address] [place] [address] documented as of this encounter Visit Diagnoses Not on filedocumented in this encounter Additional Health Concerns Assessment Noted Time PHQ-9 Depression Total Score: 0 06/23/20 21 4:11 PM CDT documented as of this encounter Care Teams Supervisor Sanding Relationship Specialty Start Date End Date Yung Madrigal MD RETIRED PCP - Orthopaedics Orthopedics 08/26/12 Winston Villatoro OD [facility] [place] [address] [facility] [address] [place] [address] PCP - Ophthalmology Ophthalmology 02/11/13 Denise Woodson Ra, APRN PNEUMATIC JACK OPERATOR [address] [facility] [place] [address] PCP - General Family Practice 09/21/20 Denise Woodson Ra, APRN PNEUMATIC JACK OPERATOR [address] [facility] [place] [address] Assigned PCP 07/17/20 documented as of this encounter
--- OUTSIDE RECORDS SUMMARY | 2024-01-04 16:54 | XMS_ITS | Encounter Summary ---
Author Name Unknown Organization [facility] Address [address] [place] [address]. [place] [address] Care Team Providers Care Rectifying Attendant Name Role Phone Yung Madrigal MD Unavailable Unavailable Winston Villatoro OD Unavailable [phone] Denise Woodson Ra, APRN DISTRICT COURT BAILIFF Unavailable + [phone] Denise Woodson Ra, APRN DISTRICT COURT BAILIFF Primary Care Provid er Reason for Visit * Reason Comments Medication Refill Encounter Details Date Type Department Care Team (Late st Contact Info) Description 06/11/[address] [place] [address] Denise Woodson Ra, APRN DISTRICT COURT BAILIFF [address] [place], [place] [id number] Medication Refill Social History Tobacco Use Types [...] Description 01/15/2024 3:30 PM CDT Office Visit [facility] [address] [place] [address] Jacque Alexis APRN [address] [place] [address] [place] [address] documented as of this encounter Visit Diagnoses Diagnosis Insomnia, unspecified type documented in this encounter Additional Health Concerns Assessment Noted Time PHQ-9 Depression Total Score: 0 01/05/20 21 9:31 AM CDT documented as of this encounter Care Teams Rectifying Attendant Relationship Specialty Start Date End Date Yung Madrigal MD RETIRED PCP - Orthopaedics Orthopedics 08/26/12 Winston Villatoro OD [facility] [place] [address] [facility] [address] [place] [address] PCP - Ophthalmology Ophthalmology 02/11/13 Denise Woodson Ra, APRN [place] [facility] [place] [address] [place] [address] PCP - General Family Practice 09/21/20 Denise Woodson Ra, APRN [place] [facility] BAILIFF [address] [place] [address] Assigned PCP 07/17/20 documented as of this encounter
--- OUTSIDE RECORDS SUMMARY | 2024-01-04 16:54 | XMS_ITS | Encounter Summary ---
Author Name Unknown Organization [facility] Address [address] [place] [address] Care Team Providers Care Fire Marshal Name Role Phone Yung Madrigal MD Unavailable Unavailable Winston Villatoro OD Unavailable [phone] Serum, Clara Garland MD Primary Care Provider Serum, Clara Garland MD Unavailable [phone] Denise Woodson Ra, APRN [employer] Unavailable [phone] Denise Woodson Ra, APRN [employer] Primary Care Provid er Encounter Details Date Type Department Care Team (Late st Contact Info) Description 06/16/2019 My[facility] Medical Advice [address] [place] [address] Serum, Clara Garland MD [address] [place] [address] Social History Tobacco Use Types [...] Description 01/15/2024 3:30 PM CDT Office Visit [address] [address] Jacque Alexis APRN [employer] [address] [place] [address] documented as of this encounter Visit Diagnoses Not on filedocumented in this encounter Additional Health Concerns Assessment Noted Time PHQ-9 Depression Total Score: 0 06/15/20 19 7:09 PM CDT documented as of this encounter Care Teams Fire Marshal Relationship Specialty Start Date End Date Yung Madrigal MD RETIRED PCP - Orthopaedics Orthopedics 08/26/12 Winston Villatoro OD [facility] [place] [address] [place] [address] PCP - Ophthalmology Ophthalmology 02/11/13 Clara Cornell MD [facility] [place] [address] [place] [address] PCP - General Internal Medicine 02/07/17 09/20/20 Denise Woodson Ra, APRN [employer] [address] [place] [address] PCP - General Family Practice 09/21/20 Clara Cornell MD [address] [place] [address] Assigned PCP 01/17/17 07/16/20 Denise Woodson Ra, APRN [employer] [address] [place] [address] Assigned PCP 07/17/20 documented as of this encounter
--- OUTSIDE RECORDS SUMMARY | 2024-01-04 16:54 | XMS_ITS | Encounter Summary ---
Author Name Unknown Organization [facility] Address [address] [place] [address]. [place] [address] Care Team Providers Care Pensionholder Information Clerk Name Role Phone Yung Madrigal MD Unavailable Unavailable Winston Villatoro OD Unavailable [phone] Denise Woodson Ra, APRN SOUND DESIGNER Unavailable Denise Woodson Ra, APRN SOUND DESIGNER Primary Care Provid er Encounter Details Date Type Department Care Team (Late st Contact Info) Description 06/13/2021 [facility] Medical Advice [facility] [address] [place] [address] Denise Woodson Ra, APRN SOUND DESIGNER [address] [place] [address] Insomnia, unspecified type Social History [...] Miscellaneous Notes * Telephone Encounter - Mary Caraballo RN - 06/13/2021 5:10 PM CDT Called [facility]. They stated they do not have a refill on file. Prescription approved per [facility] protocol. Mary Caraballo RN on 06/13/2021 at 5:18 PM documented in this encounter Plan of Treatment Upcoming Encounters Date Type Department Care Team (Late st Contact Info) Description 01/15/2024 3:30 PM CDT Office Visit [facility] [address] [place] [address] Jacque Alexis APRN SOUND DESIGNER [address] [place] [address] documented as of this encounter Visit Diagnoses Diagnosis Insomnia, unspecified type documented in this encounter Additional Health Concerns Assessment Noted Time PHQ-9 Depression Total Score: 0 01/05/20 21 9:31 AM CDT documented as of this encounter Care Teams Pensionholder Information Clerk Relationship Specialty Start Date End Date Yung Madrigal MD RETIRED PCP - Orthopaedics Orthopedics 08/26/12 Winston Villatoro OD [facility] [place] [address] [place] [address] PCP - Ophthalmology Ophthalmology 02/11/13 Denise Woodson Ra, APRN SOUND DESIGNER [address] [place] [address] PCP - General Family Practice 09/21/20 Denise Woodson Ra, APRN SOUND DESIGNER [address] [place] [address] Assigned PCP 07/17/20 documented as of this encounter
--- OUTSIDE RECORDS SUMMARY | 2024-01-04 16:54 | XMS_ITS | Encounter Summary ---
Author Name Unknown Organization [facility] Address [address] [place] [address] Care Team Providers Care Substance Abuse Counselor Name Role Phone Timmy Perez MD Unavailable Unavailable Yung Madrigal MD Unavailable Unavailable Winston Villatoro OD Unavailable [phone] Apple Sykes MD Primary Care Provider [phone] Westley Bates MD Unavailable [phone] Alessandra Cabrales APRN COUNSELING PROGRAM LEADER Primary Car e Provider Serum, Clara Garland MD Primary Care Provider Serum, Clara Garland MD Unavailable [phone] Serum, Clara Garland MD Unavailable [phone] Denise Woodson Ra, APRN COUNSELING PROGRAM LEADER Unavailable + [phone] Denise Woodson Ra, APRN, CNP Primary Care Provid er Encounter Details Date Type Department Care Team (Late st Contact Info) Description 05/26/[address] [facility] Orthopedics [address] [place] [id number] Yung Madrigal MD RETIRED Social History Tobacco [...] Description 01/15/2024 3:30 PM CDT Office Visit [facility] [address] [place] [address] Jacque Alexis APRN COUNSELING PROGRAM LEADER [address] [place] [address] documented as of this encounter Visit Diagnoses Not on filedocumented in this encounter Care Teams Substance Abuse Counselor Relationship Specialty Start Date End Date Timmy Perez MD PCP - Obstetrics/Gynecology 03/02/08 08/07/15 Yung Madrigal MD RETIRED PCP - Orthopaedics Orthopedics 08/26/12 Winston Villatoro OD [facility] [place] [address] [place] [address] PCP - Ophthalmology Ophthalmology 02/11/13 Apple Sykes MD [facility] [place] [address] [place] [address] PCP - General Family Practice 05/04/13 10/25/16 Westley Bates MD XXX RETIRED XXX [address] [place] [address] PCP - ENT Otolaryngology 05/14/13 07/28/18 Alessandra Cabrales APRN COUNSELING PROGRAM LEADER [address] [facility] [place] [address] PCP - General Nurse Practitioner 10/26/16 02/06/17 Clara Cornell MD [address] [facility] [place] [address] PCP - General Internal Medicine 02/07/17 09/20/20 Clara Cornell MD [address] [place] [address] PCP - Assigned PCP 01/17/17 11/18/18 Denise Woodson Ra, APRN COUNSELING PROGRAM LEADER [address] [place] [address] PCP - General Family Practice 09/21/20 Clara Cornell MD [address] [place] [address] Assigned PCP 01/17/17 07/16/20 Denise Woodson Ra, APRN COUNSELING PROGRAM LEADER [address] [place] [address] Assigned PCP 07/17/20 documented as of this encounter
--- OUTSIDE RECORDS SUMMARY | 2024-01-04 16:54 | XMS_ITS | Encounter Summary ---
Author Name Unknown Organization [facility] Address [address] [place] [address] Care Team Providers Care Asphalt Paving Supervisor Name Role Phone Yung Madrigal MD Unavailable Unavailable Winston Villatoro OD Unavailable [phone] Denise Woodson Ra, APRN SKIP LOADER Unavailable + [phone] Denise Woodson Ra, APRN SKIP LOADER Primary Care Provid er Encounter Details Date Type Department Care Team (Late Contact Info) Description 12/30/2020 [facility] [address] [place] [address] Jessica Phipps, BIBI Social History [...] Description 01/15/2024 3:30 PM CDT Office Visit [facility] [place] [address] [place] [address] Jacque Alexis APRN SKIP LOADER [address] [place] [address] documented as of this encounter Visit Diagnoses Not on filedocumented in this encounter Additional Health Concerns Assessment Noted Time PHQ-9 Depression Total Score: 0 06/15/20 19 7:09 PM CDT documented as of this encounter Care Teams Asphalt Paving Supervisor Relationship Specialty Start Date End Date Yung Madrigal MD RETIRED PCP - Orthopaedics Orthopedics 08/26/12 Winston Villatoro OD [facility] [place] [address] [facility] [address] [place] [address] PCP - Ophthalmology Ophthalmology 02/11/13 Denise Woodson Ra, APRN SKIP LOADER [address] [place] [address] PCP - General Family Practice 09/21/20 Denise Woodson Ra, APRN SKIP LOADER [address] [place] [address] Assigned PCP 07/17/20 documented as of this encounter
--- OUTSIDE RECORDS SUMMARY | 2024-01-04 16:54 | XMS_ITS | Encounter Summary ---
Author Name Unknown Organization [place] Address [address] [place] [address] Care Team Providers Care Orthopedic Designer Name Role Phone Timmy Perez MD Unavailable Unavailable Yung Madrigal MD Unavailable Unavailable Frw, None Primary Care Provider Unavailabl e Winston Villatoro OD Unavailable [phone] Apple Sykes MD Primary Care Provider [phone] Westley Bates MD Unavailable [phone] Alessandra Cabrales APRN RUG HOOKER Primary Car e Provider Serum, Clara Garland MD Primary Care Provider Serum, Clara Garland MD Unavailable [phone] Serum, Clara Garland MD Unavailable [phone] Denise Woodson Ra, APRN RUG HOOKER Unavailable [phone] Denise Woodson Ra, APRN RUG HOOKER Primary Care Provid er Encounter Details Date Type Department Care Team (Late st Contact Info) Description 01/31/2006 [facility] LOSS PREVENTION AUDITOR [address] [place] [address] Timmy Perez MD Social History Tobacco Use [...] 01/15/2024 3:30 PM CDT Office Visit [facility] [address] [place] [address] Jacque Alexis APRN [employer]OOK[employer] [address] [place] [address] documented as of this encounter Visit Diagnoses Not on filedocumented in this encounter Care Teams Orthopedic Designer Relationship Specialty Start Date End Date Timmy Perez MD PCP - Obstetrics/Gynecology 03/02/08 08/07/15 Yung Madrigal MD RETIRED PCP - Orthopaedics Orthopedics 08/26/12 Frw, None PCP - General Family Practice 08/26/12 05/03/13 Winston Villatoro OD [facility] [place] [address] [place] [address] PCP - Ophthalmology Ophthalmology 02/11/13 Apple Sykes MD [facility] [place] [address] [place] [address] PCP - General Family Practice 05/04/13 10/25/16 Westley Bates MD XXX RETIRED XXX [address] [place] [address] PCP - ENT Otolaryngology 05/14/13 07/28/18 Alessandra Cabrales APRN RUG HOOKER [address] [facility] [place] [address] PCP - General Nurse Practitioner 10/26/16 02/06/17 Clara Cornell MD [address] [facility] [place] [address] PCP - General Internal Medicine 02/07/17 09/20/20 Clara Cornell MD [address] [place] [address] PCP - Assigned PCP 01/17/17 11/18/18 Denise Woodson Ra, APRN RUG [employer]OOK[employer] [address] [place] [address] PCP - General Family Practice 09/21/20 Clara Cornell MD [address] [place] [address] Assigned PCP 01/17/17 07/16/20 Denise Woodson Ra, APRN RUG HOOKER [address] [place] [address] Assigned PCP 07/17/20 documented as of this encounter
--- OUTSIDE RECORDS SUMMARY | 2024-01-04 16:54 | XMS_ITS | Encounter Summary ---
Author Name Unknown Organization [facility] Address [address] [place] [address]. [place] [address] Care Team Providers Care Stone Gang Sawyer Name Role Phone Yung Madrigal MD Unavailable Unavailable Winston Villatoro OD Unavailable Denise Woodson Ra, APRN TECHNOLOGIES DIVISION CHAIR Unavailable Denise Woodson Ra, APRN TECHNOLOGIES DIVISION CHAIR Primary Care Provid er Reason for Visit * Reason Onset Date Comments Medication Request 04/20/2021 escitalopram (LEXAPRO) 10 MG tablet Encounter Details Date Type Department Care Team (Late st Contact Info) Description 04/20/2021 MyC Medical Advice [facility] [address] [place] [address] Denise Woodson Ra, APRN TECHNOLOGIES DIVISION CHAIR [address] [place] [address] Medication Request (escitalopram (LEXAPRO)... Social [...] 3:30 PM CDT [facility] [address] [place] [address] Jacque Alexis APRN TECHNOLOGIES DIVISION CHAIR [address] [place] [address] documented as of this encounter Visit Diagnoses Diagnosis Generalized anxiety disorder Mild recurrent major depression (H24) Major depressive disorder, recurrent episode, mild documented in this encounter Additional Health Concerns Assessment Noted Time PHQ-9 Depression Total Score: 0 01/05/20 21 9:31 AM CDT documented as of this encounter Care Teams Stone Gang Sawyer Relationship Specialty Start Date End Date Yung Madrigal MD RETIRED PCP - Orthopaedics Orthopedics 08/26/[address] [facility] [place] [address] [facility] [address] [place] [address] PCP - Ophthalmology Ophthalmology 02/11/13 Denise Woodson Ra, APRN TECHNOLOGIES DIVISION CHAIR [address] [place] [address] PCP - General Family Practice 09/21/20 Denise Woodson Ra, APRN TECHNOLOGIES DIVISION CHAIR [address] [place] [address] Assigned PCP 07/17/20 documented as of this encounter
--- OUTSIDE RECORDS SUMMARY | 2024-01-04 16:54 | XMS_ITS | Encounter Summary ---
Author Name Unknown Organization [facility] Address [address] [place] [address] Care Team Providers Care Magnetic Grinder Operator Name Role Phone Timmy Perez MD Unavailable Unavailable Yung Madrigal MD Unavailable Unavailable Winston Villatoro OD Unavailable [phone] Apple Sykes MD Primary Care Provider [phone] Westley Bates MD Unavailable [phone] Alessandra Cabrales APRN BLOWER MECHANIC Primary Car e Provider Serum, Clara Garland MD Primary Care Provider Serum, Clara Garland MD Unavailable [phone] Serum, Clara Garland MD Unavailable [phone] Denise Woodson Ra, APRN BLOWER MECHANIC Unavailable + [phone] Denise Woodson Ra, APRN, CNP Primary Care Provid er Encounter Details Date Type Department Care Team (Late st Contact Info) Description 05/06/2013 MyC Medical Advice [facility] [address] [place] [address] Apple Sykes MD [address] [place] [address] Social History Tobacco Use Types Packs/Day Years [...] Description 01/15/2024 3:30 PM CDT Office Visit [facility] [address] [place] [address] Jacque Alexis APRN BLOWER MECHANIC [address] [place] [address] documented as of this encounter Visit Diagnoses Not on filedocumented in this encounter Care Teams Magnetic Grinder Operator Relationship Specialty Start Date End Date Timmy Perez MD PCP - Obstetrics/Gynecology 03/02/08 08/07/15 Yung Madrigal MD RETIRED PCP - Orthopaedics Orthopedics 08/26/12 Winston Villatoro, OD [facility] [place] [address] [place] [address] PCP - Ophthalmology Ophthalmology 02/11/13 Apple Sykes MD [facility] [place] [address] [place] [address] PCP - General Family Practice 05/04/13 10/25/16 Westley Bates MD XXX RETIRED XXX [address] [place] [address] PCP - ENT Otolaryngology 05/14/13 07/28/18 Alessandra Cabrales APRN BLOWER MECHANIC [address] [facility] [place] [address] PCP - General Nurse Practitioner 10/26/16 02/06/17 Clara Cornell MD [address] [facility] [place] [address] PCP - General Internal Medicine 02/07/17 09/20/20 Clara Cornell MD [address] [place] [address] PCP - Assigned PCP 01/17/17 11/18/18 Denise Woodson Ra, APRN BLOWER MECHANIC [address] [place] [address] PCP - General Family Practice 09/21/20 Clara Cornell MD [address] [place] [address] Assigned PCP 01/17/17 07/16/20 Denise Woodson Ra, APRN BLOWER MECHANIC [address] [place] [address] Assigned PCP 07/17/20 documented as of this encounter
[2024-01-04 16:56] LABS: Basophils Absolute Auto 0.03 K/uL (0.00-0.30); Basophils Percent Auto 0.3 % (0.0-3.0); Eosinophils Absolute Auto 0.32 K/uL (0.00-0.50); Eosinophils Percent Auto 3.2 % (0.0-7.0); Hemoglobin* 15.5 gm/dL (12.0-16.0); Immature Granulocytes Abs Auto 0.02 K/uL (0.00-0.30); Immature Granulocytes Pct Auto 0.2 %; Lymphocytes Absolute Auto 2.36 K/uL (0.90-2.90); Mean Corpuscular HGB Conc 34 gm/dL (32-36); Mean Corpuscular Hemoglobin 31 pg (26-34); Mean Corpuscular Volume 92 fL (80-100); Monocytes Percent Auto 5.8 % (0.0-11.0); Neutrophils Absolute Auto 6.55 K/uL (1.7-7.0); Neutrophils Percent Auto 66.5 % (42.0-72.0); Platelet Count* 221 K/uL (140-440); RDW Coefficient of Variation % 11.9 % (11.5-15.5); Red Blood Count 5.02 m/uL (4.00-5.20); White Blood Count* 9.85 K/uL (4.50-11.00)
[2024-01-04 17:03] LABS: Slide Review Reflex No
[2024-01-04 17:08] LABS: Chloride* 105 mmol/L (96-114)
[2024-01-04 17:09] LABS: Potassium* 3.9 mmol/L (3.6-5.1); Sodium* 139 mmol/L (135-149)
[2024-01-04 17:11] LABS: Creatinine* 0.6 mg/dL (0.5-1.5); Est. Creatinine Clearance* 116.93; Estimated Glomerular Filt Rate 111 ml/min
[2024-01-04 17:12] LABS: Anion Gap 3 mEq/L (7-15); Blood Urea Nitrogen* 15 mg/dL (5-24); Calcium* 9.7 mg/dL (8.4-10.6); Carbon Dioxide* 31 mmol/L (20-32); Glucose* 93 mg/dL (60-115)
== END 2024-01-04 17:58 | disposition home or self-care (01) ==
PROVIDERS: Emergency Provider Emergency Medicine; PCP Family Medicine
DX: H93.12 Tinnitus, left ear (principal); R51.9 Headache, unspecified
CPT/HCPCS: 36415; 70450; 70496; 70498; 80048; 85025; 96374; 99283; 99284; 99285; Q9967

== ENCOUNTER 2024-01-07 15:34 | Emergency (ER) | payer OTHER, SELFPAY ==
[2024-01-07 15:43] VITALS: BP 167/82; PULSE 75; RESP 16; TEMP 36.6; O2SAT 100; BMI 32.5
--- NOTE | 2024-01-07 15:54 | CT_ITS ---
Patient: CHRISTOPHER TY Facility:?[facility] Patient ID:?[id number] Site Patient ID:?[id number]. Site :?[id number] Study:?CT-Head WITHOUT-01/07/2024 4:28:37 PM Ordering Physician:?DR LOPEZ Final Report: INDICATION: LEFT PULSATILE TINNISTIS HERE ON 01/04/24 AND SENT TO [facility] FOR CATH ANGIO OF OCCIPITAL ARTERY. TECHNIQUE: CT head without contrast. COMPARISON: None. FINDINGS: CSF spaces: Within normal limits for age. Brain parenchyma and extra-axial spaces: The pollack-white differentiation is normal. No sign of mass, hemorrhage, or midline shift. No extra-axial fluid collection. Skull base and calvarium: The visualized paranasal sinuses and mastoid air cells demonstrate no acute or significant findings. The visualized orbits are grossly unremarkable. No skull fractures. IMPRESSION: Unremarkable noncontrast head CT. Please note that all CT scans at this facility use dose modulation, iterative reconstruction, and/or weight-based dosing when appropriate to reduce radiation dose to as low as reasonably achievable. Dictated by Chinedu Olea MD @ 01/07/2024 4:50:39 PM Signed by:?Chinedu Olea MD @01/07/2024 4:50:39 PM (Electronic Signature)
--- NOTE | 2024-01-07 16:04 | ED_ITS ---
HPI - General Adult General Chief complaint: Headache/Migraine Stated complaint: Headache behind left eye-very painful-abno CT Time Seen by Provider: 01/07/24 15:38 History of Present Illness HPI narrative: Patient here Saturday for evaluation, patient has abnormality on CT and has follow up angiogram at [place] on 2023. Now having more pressure behind left eye and more blurry today when at the computer. Headache is on the same left side and 9/10. Way worse than Saturday. 48-year-old woman returning to the emergency department with complaint of headache and pulsatile tinnitus. Left-sided pulsatile tinnitus began a few weeks ago. She has been treated for sinus symptoms with antibiotics and prednisone in the interim. Presenting to the emergency department 3 days ago with this tinnitus and some headache. CTA head and neck was done with more remarkable findings as indicated below IMPRESSION: 1. Patent proximal intracranial vasculature without intracranial aneurysms. 2. Asymmetric enlargement of the left occipital artery compared to the right. Given the history of left-sided pulsatile tinnitus, further evaluation with a diagnostic catheter angiogram to exclude a dural arteriovenous fistula is recommended. Arrangements for this to be performed by [facility] Neurointer[facility] team can be made by calling . Today while at work had fairly abrupt onset of left eye pain and watering and now with left temporal sharp pain that waxes and wanes somewhat. She did in my inquiry today at least denies sinus symptoms. No weakness or alterations in sensation extremities. 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 Related Data Home Medications Medication Instructions Recorded Confirmed fluticasone furoate 200 1 inh inhalation DAILY 07/03/22 01/14/24 mcg-vilanterol 25 mcg/dose inhalation powder (Breo Ellipta) albuterol sulfate 90 mcg/actuation 2 puff inhalation Q6H PRN 08/01/22 01/13/24 aerosol inhaler magnesium 250 mg tablet 250 mg PO HS 08/02/22 01/14/24 trazodone 100 mg tablet 100 mg PO HS sleep 08/02/22 01/14/24 cetirizine 10 mg tablet (Zyrtec) 10 mg PO DAILY 10/08/23 01/14/24 hydroxyzine HCl 25 mg tablet 25 mg PO TID PRN 12/31/23 01/14/24 Previous Rx's Medication Instructions Recorded ketorolac 10 mg tablet 10 mg PO Q6H PRN pain 5 days #20 07/03/22 tabs Allergies Allergy/AdvReac Type Severity Reaction Status Date / Time bupropion Allergy Intermediate Diarrhea Verified 01/13/24 22:06 codeine Allergy Intermediate epigastric Verified 01/13/24 22:06 pain erythromycin base Allergy Intermediate stomach Verified 01/13/24 22:06 upset, diarrhea Review of Systems Status of ROS: Reports: 6 or more systems reviewed and unremarkable except as noted in History and below PFSH PFS Medical History Asthma ?J45.909 - Unspecified asthma, uncomplicated (ICD-10) History of blood transfusion (1994) ?Z92.89 - Personal history of other medical treatment (ICD-10) History of vitamin D deficiency ?Z86.39 - Personal history of other endocrine, nutritional and metabolic disease (ICD-10) Anxiety and depression ?F41.9 - Anxiety disorder, unspecified (ICD-10) ?F32.A - Depression, unspecified (ICD-10) Fibromyalgia ?M79.7 - Fibromyalgia (ICD-10) Mild persistent asthma ?J45.30 - Mild persistent asthma, uncomplicated (ICD-10) H/O bronchopulmonary dysplasia ?Z87.09 - Personal history of other diseases of the respiratory system (ICD- 10) Stage 1 chronic kidney disease (11/16/20) ?N18.1 - Chronic kidney disease, stage 1 (ICD-10) Simple renal cyst (10/2020) ?N28.1 - Cyst of kidney, acquired (ICD-10) 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, unspecified (ICD-10) Asthma ?J45.909 - Unspecified asthma, uncomplicated (ICD-10) Surgical History History of laparoscopy ?Z98.890 - Other specified postprocedural states (ICD-10) S/P dilation and curettage (1994) ?Z98.890 - Other specified postprocedural states (ICD-10) H/O tubal ligation ?Z98.51 - Tubal ligation status (ICD-10) Status post excision of lipoma (2011) ?Z98.890 - Other specified postprocedural states (ICD-10) ?Z86.018 - Personal history of other benign neoplasm (ICD-10) History of medial meniscus repair of left knee (08/04/13) ?Z98.890 - Other specified postprocedural states (ICD-10) History of laparoscopic cholecystectomy (09/29/20) ?Z90.49 - Acquired absence of other specified parts of digestive tract (ICD- 10) History of hysterectomy for benign disease (2005) ?Z90.710 - Acquired absence of both cervix and uterus (ICD-10) History of catheter-based closure of atrial septal defect (06/2006) ?Z87.74 - Personal history of (corrected) congenital malformations of heart and circulatory system (ICD-10) Family History Maternal Grandmother Stroke Paternal Grandfather Diabetes Daughter Depression Social History Narrative: She recently moved to [place]. 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 She has a college education She exercises 5 days a week with walking in treadmill 2M She does not smoke She does not drink alcohol or use recreational drugs What is your current living situation?: I presently have a place to live Problems where you live: no known problems Problems where you live details: na In the past 12 months, utilities in danger of being shut off: no In past 12 months, lack of transportation kept you from medical appts, meetings, work, or getting things needed for daily living: no In the past 12 mos, have been you worried that your food would run out before you had money to buy more?: never true In the past 12 mos, the food you bought just didn't last and you didn't have money to buy more?: never true Highest level of school completed/degree received: Associate degree: occupational, technical, vocational program Smoking Status: Never smoker Do you use any of these nicotine containing products: None Second hand tobacco smoke exposure: No How often do you have a drink containing alcohol: never How often do you have six or more drinks on one occasion: Never AUDIT-C Alcohol total score: 0 Non-prescribed substance use: denies use Caffeine: Yes How often does anyone, including family, friends and others, physically hurt you : never How often does anyone, including family, friends and others, insult or talk down to you: never How often does anyone, including family, friends and others, threaten you with harm: never How often does anyone, including family, friends and others, scream or curse at you: never Little interest or pleasure in doing things: not at all Feeling down, depressed, or hopeless: not at all Are you using contraception or practicing any form of control: Yes (hysterectomy) service: No Exam Narrative: Exam Narrative: Pleasant. Fluttering her eyes in apparent discomfort. Prefers to keep her eyes generally closed. Moving all extremities without difficulty with good strength. Sensation looks to be intact. Cranial nerves 2-12 look to be intact with equal pupils. Const: Vital Signs, click to edit/add: Vital Signs - 24 hr 01/07/24 15:43 01/07/24 16:50 01/07/24 17:00 Temperature 97.8 F Pulse Rate [Pulse Oximeter] 75 Respiratory Rate 16 Blood Pressure [Ri ght Upper Arm] 167/82 H 142/74 H Pulse Oximetry 100 100 Oxygen Delivery Me thod Room Air Room Air Documenting provider has reviewed patient's vital signs: yes Course Vital Signs Vital signs: Initial Vital Signs Temperature 97.8 F 01/07/24 15:43 Temperature Source Temporal Artery Scan 01/07/24 15:43 Pulse Rate 75 01/07/24 15:43 Pulse Rhythm Regular 01/07/24 15:43 Respiratory Rate 16 01/07/24 15:43 Blood Pressure 167/82 H 01/07/24 15:43 Blood Pressure Mean 110 H 01/07/24 15:43 Blood Pressure Position Sitting 01/07/24 15:43 Pulse Oximetry 100 01/07/24 15:43 Oxygen Delivery Method Room Air 01/07/24 15:43 Vital Signs Temperature 97.8 F 01/07/24 15:43 Pulse Rate 75 01/07/24 15:43 Respiratory Rate 16 01/07/24 15:43 Blood Pressure 167/82 H 01/07/24 15:43 Pulse Oximetry 100 01/07/24 15:43 Oxygen Delivery Method Room Air 01/07/24 15:43 Temperature 97.8 F 01/07/24 15:43 Pulse Rate 65 01/07/24 17:33 Respiratory Rate 16 01/07/24 15:43 Blood Pressure 142/74 H 01/07/24 17:00 Pulse Oximetry 100 01/07/24 17:33 Oxygen Delivery Method Room Air 01/07/24 17:33 Medications Administered Medications: Discontinued Medications Generic Name Dose Route Start Last Admin Trade Name Freq PRN Reason Stop Dose Admin Sodium Chloride 1,000 mls @ 1,000 mls/hr 01/07/24 16:37 01/07/24 16:55 0.9 % Sodium Chloride 1000 Ml IV 01/07/24 17:36 1,000 mls/hr .Q1H ONE Administration Lorazepam 0.5 mg 01/07/24 16:40 01/07/24 16:55 Lorazepam 2 Mg/Ml Inj IV 01/07/24 16:41 0.5 mg ONCE ONE Administration Medical Decision Making MDM Narrative Medical decision making narrative: Location of pain is not inconsistent with temporal arteritis. It seems more like an ocular migraine with exacerbation of anxiety. Possible cluster headache but has no history specifically of this. Might benefit from some oxygen supplementation. Perhaps nasal lidocaine would be helpful? Also need to rule about head bleed/leaking aneurysm. I did discuss with Interventional Neurology next steps in management. Recommendations are to treat pain at this time and follow-up as scheduled a believe on the for catheter angiography CT non contrasted head reviewed by me looks to be unremarkable for any acute abnormality. Radiology over-read as below Study:?CT-Head WITHOUT-01/07/2024 4:28:37 PM Ordering Physician:?DR LOPEZ Final Report: INDICATION: LEFT PULSATILE TINNISTIS HERE ON 01/04/24 AND SENT TO [facility] FOR CATH ANGIO OF OCCIPITAL ARTERY. TECHNIQUE: CT head without contrast. COMPARISON: None. FINDINGS: CSF spaces: Within normal limits for age. Brain parenchyma and extra-axial spaces: The pollack-white differentiation is normal. No sign of mass, hemorrhage, or midline shift. No extra-axial fluid collection. Skull base and calvarium: The visualized paranasal sinuses and mastoid air cells demonstrate no acute or significant findings. The visualized orbits are grossly unremarkable. No skull fractures. IMPRESSION: Unremarkable noncontrast head CT. Given IV Ativan and normal saline. On reassessment seems a little improved already. I did further atomize lidocaine into her nose. Pending reassessment. Near immediate relief of her headache/eye pain following intranasal misting of lidocaine. Looks markedly more comfortable. She is ambulatory and requesting departure Labs are reassuring without indication of infection nor they with evidence of significant inflammation/temporal arteritis. See patient discharge plan for further discussion Medical Records Medical records reviewed: Yes I reviewed the patient's medical records Lab Data Lab results reviewed: Yes I reviewed the patient's lab results Labs: Lab Results 01/07/24 Range/Units 16:55 WBC 10.22 (4.50-11.00) K/uL RBC 5.06 (4.00-5.20) m/uL Hgb 15.3 (12.0-16.0) gm/dL Hct 45.6 (33.0-51.0) % MCV 90 (80-100) fL MCH 30 (26-34) pg MCHC 34 (32-36) gm/dL RDW Coeff of Bárbara 11.9 (11.5-15.5) % Plt Count 208 (140-440) K/uL Neut % (Auto) 71.3 (42.0-72.0) % Lymph % (Auto) 19.6 L (20-44) % [place] % (Auto) 5.7 (0.0-11.0) % Eos % (Auto) 3.0 (0.0-7.0) % Baso % (Auto) 0.3 (0.0-3.0) % Neut # (Auto) 7.29 H (1.7-7.0) K/uL Lymph # (Auto) 2.00 (0.90-2.90) K/uL [place] # (Auto) 0.60 (0.00-0.90) K/UL Eos # (Auto) 0.31 (0.00-0.50) K/uL Baso # (Auto) 0.03 (0.00-0.30) K/uL Abs Immat Gran (auto) 0.01 (0.00-0.30) K/uL Imm/Tot Granulo (auto) 0.1 % ESR 16 (2-20) mm/hr Sodium 137 (135-149) mmol/L Potassium 3.9 (3.6-5.1) mmol/L Chloride 103 (96-114) mmol/L Carbon Dioxide 28 (20-32) mmol/L Anion Gap 6 L (7-15) mEq/L BUN 13 (5-24) mg/dL Creatinine 0.7 (0.5-1.5) mg/dL Estimated Creat Clear 100.22 Estimated GFR 107 ml/min Glucose 93 (60-115) mg/dL Calcium 9.3 (8.4-10.6) mg/dL C-Reactive Protein 0.7 (0.5-1.0) mg/dL Discharge Plan Discharge Clinical Impression: Ocular migraine Patient Disposition: Home w/ Parent or Adult Condition: Improved Additional Instructions: Happy you are feelling better. Stay well-hydrated. Might be a nice evening for a walk. Please follow-up as scheduled with Interventional Neurology. Prescriptions: No Action cetirizine [Zyrtec] 10 mg tablet 10 mg PO DAILY hydroxyzine HCl 25 mg tablet 25 mg PO TID PRN albuterol sulfate 90 mcg/actuation HFA aerosol inhaler 2 puff inhalation Q6H PRN magnesium 250 mg tablet 250 mg PO HS fluticasone furoate-vilanterol [Breo Ellipta] 200-25 mcg/dose blister with device 1 inh INHALATION DAILY ketorolac 10 mg tablet 10 mg PO Q6H PRN (Reason: pain) 5 Days Qty: 20 0RF trazodone 100 mg tablet 100 mg PO HS Follow Up/Referrals: Keira Irvin MD [Primary Care Provider] - Stand Alone Forms: [employer] Info Instructions
[2024-01-07 16:50] VITALS: O2SAT 100
[2024-01-07] MEDS: LORazepam 2 MG/ML inj 0.5 MG IV (16:55)
[2024-01-07] MEDS: 0.9 % SODIUM CHLORIDE 1000 ml 1,000 ML IV (16:55)
[2024-01-07 17:00] VITALS: BP 142/74
--- OUTSIDE RECORDS SUMMARY | 2024-01-07 17:05 | XMS_ITS | Encounter Summary ---
Author Name Unknown Organization [facility] Address [address] [place] [address] Care Team Providers Care Car Filler Name Role Phone Darius Shaw M.D. Primary Care Provider Encounter Details Date Type Department Care Team (Late st Contact Info) Description 05/12/2013 Historical Ophthalmology [facility] Jonathan Bonilla M.D. [address] [place] [address] [phone] Social History Tobacco Use Types Packs/Day Years [...] corneal thickness CDM Reports - EYEGEN Id: [id number] Status: Fnl documented in this encounter Plan of Treatment Not on file documented as of this encounter Visit Diagnoses Not on filedocumented in this encounter Additional Health Concerns Infection Onset Date Last Indicated Resolved Time COVID19 Pending 07/11/2020 07/11/2020 07/12/2020 5 :56 PM CDT COVID19 Pending 07/17/2020 07/17/2020 07/17/2020 9 :18 PM DIGITAL MARKETING PROGRAM MANAGER COVID19 Pending 09/19/2020 09/19/2020 10/09/2020 4 :45 AM DIGITAL MARKETING PROGRAM MANAGER COVID19 Pending 10/25/2020 10/26/2020 10/27/2020 9 :59 AM DIGITAL MARKETING PROGRAM MANAGER COVID19 Pending 06/03/2021 06/03/2021 06/03/2021 9 :40 AM CDT COVID19 Pending 06/03/2021 06/03/2021 06/03/2021 1 0:36 PM CDT COVID19 Pending 08/09/2021 08/09/2021 08/11/2021 1 2:57 AM DIGITAL MARKETING PROGRAM MANAGER COVID19 Pending 06/26/2022 06/26/2022 06/26/2022 5 :47 PM CDT Assessment Noted Time PHQ-9 Depression Total Score: 8 09/18/19 13 7:41 AM DIGITAL MARKETING PROGRAM MANAGER documented as of this encounter Care Teams Car Filler Relationship Specialty Start Date End Date Darius Shaw M.D. [id number] [phone] PCP - General Family Medicine 09/27/22 documented as of this encounter
--- OUTSIDE RECORDS SUMMARY | 2024-01-07 17:05 | XMS_ITS | Referral Summary ---
Author Name Unknown Organization [facility] Address [address] [place] [address] Care Team Providers Care Mechanical Engineering Teacher Name Role Phone Darius Shaw M.D. Primary Care Provider [phone] Source Comments Patient records contain information from all sites at [facility]. For routine questions regarding patient records, call [phone] during business hours, M-F 8:00 AM - 5:00 PM Central Time. Record requests for emergency care only can be directed to [phone] at any time.[facility] Allergies Active Allergy Reactions Criticality Noted [...] week 01/10/2023 How often do you attend temple or church serv ices? Never 01/10/2023 Do you belong to any clubs o r organizations such as temple groups, unions, fraternal or athletic groups, or [...] Answer Date Recorded PHQ-2 Score 3 01/10/2023 [facility] - [...] on file Medical Devices Implanted Type Area Cashier Or Checker Stock Clerk Device Identifier Shelf Expiration Date Model / Serial / Lot Mesh Or Patch Mesh or Patch Heart Description:Amplatzer Septal Occluder Asd Closure Device 34mm - Sanders [id number] Implanted:Qty: 1 on 06/20/2006 Septal Defect Occluder Device Other/Legacy - See Implant Description Description:Device Manufactu rer - [employer]. Device Status Text - [id number]. Procedures Procedure Name Priority Date/Time Associated Diagnosis Comments BI BREAST SCREENING BILATERAL WITH TOMOSYNTHESIS RAD - Routine (most inpatients and all outpatients) 07/30/2023 2:38 PM DIRECTOR GLOBAL Screening Mammogram Breast Cancer COLOGUARD Routine 10/28/2022 5:54 PM DIRECTOR GLOBAL Screening Cancer Colon VBG & LYTES CG8+, POCT, B Routine 09/30/2022 10:38 AM DIRECTOR GLOBAL EXTI LIPID PANEL REFLEX TO DIRECT LDL Routine 07/27/2021 8:57 AM DIRECTOR GLOBAL from Last 3 Months or Most Recently Relevant to Health Maintenance Results * BI Breast Screening Bilateral with Tomosynthesis (07/30/2023 2:38 PM DIRECTOR GLOBAL) Anatomical Region Laterality Modality Breast, Breast Imaging RST L OS, Breast Imaging ARZ LOS, Breast Imaging FLA LOS Bilateral Mammography 08/01/2023 12:2 8 PM DIRECTOR GLOBAL Impressions 08/01/2023 12:33 PM DIRECTOR GLOBAL Negative. RECOMMENDATION: ??Annual Screening Mammogram ASSESSMENT: ??BI-RADS: 1: Negative. Narrative 08/01/2023 12:33 PM DIRECTOR GLOBAL EXAM: ??BI BREAST SCREENING BILATERAL WITH TOMOSYNTHESIS [...] ASSESSMENT: BI-RADS: 1: Negative. Darius Shaw M.D. [facility] BI PROCEDURES * Cologuard-Sent Out Lab (10/28/2022 5:54 PM DIRECTOR GLOBAL) Result Negative Negative 11/03/2022 2:48 AM DIRECTOR GLOBAL EXLI Comment: NEGATIVE TEST RESULT. A negative [...] (Yenny Adkins al, N Engl J Med 2014;370(14):9568-6508) The normal value (reference range) for this assay is negative. COLOGUARD RE-SCREENING RECOMMENDATION: Periodic colorectal cancer screening is an important part of preventive healthcare for asymptomatic individuals at average risk for colorectal cancer. ??Following a negative Cologuard result, the [place] Cancer Society and U.S. Multi-Society Task Force screening guidelines recommend a Cologuard re-screening interval of 3 years. References: [place] [employer] Guideline for Colorectal Cancer Screening: https://www.cancer.org/cancer/wvhmd-yfwuey-xuzuhg/detection- diagnosis-staging/acs-recommendations.html.; Ming DK, Barbra CR, Erna SimsK, Colorectal Cancer Screening: Recommendations for Physicians and Patients from the U.S. Multi-Society Task Force on Colorectal Cancer Screening , Am J Gastroenterology 2017; 112:0936-6233. TEST DESCRIPTION: Composite algorithmic analysis of stool [...] (Yenny Adkins al, N Engl J Med 2014;370(14):8564-2171.) Cologuard may produce a false negative or false positive result (no colorectal cancer or precancerous polyp present at colonoscopy follow up). A negative Cologuard test result does not guarantee the absence of CRC or advanced adenoma (pre-cancer). The current Cologuard screening interval is every 3 years. ([place] Cancer Society and U.S. Multi-Society Task Force). Cologuard performance data in a 10,000 patient pivotal study using colonoscopy as the reference method can be accessed at the following location: www.CoverMe.MediaPlatform/results. Additional description of the Cologuard test process, warnings and precautions can be found at www.cologuard.com. Stool (Stool) 10/28/2022 5:5 4 PM DIRECTOR GLOBAL 10/30/2022 1:57 PM DIRECTOR GLOBAL Darius Shaw M.D. LAB BODY FLUIDS AND STOOLS ORDERABLES [facility] [address] [place] [id number] [facility] [address] [place] [address], [address] [place] [address] * Venous Blood Gas and Electrolytes CG8+, POCT (09/30/2022 10:38 AM DIRECTOR GLOBAL) Pathologist [facility] Sample Site, POCT Venstick 09/30/2022 10:54 AM DIRECTOR GLOBAL PCSM Comment: ----ADDITIONAL INFORMATION---- Performed at the Point of Care pH, Venous, POCT, B 7.43 7.32 - 7.43 09/30/2022 10:54 AM DIRECTOR GLOBAL PCSM Comment: ----ADDITIONAL INFORMATION---- Performed at the Point of Care pCO2, Venous, POCT, B 46 41 - 51 mm Hg 09/30/2022 10:54 AM DIRECTOR GLOBAL PCSM Comment: ----ADDITIONAL INFORMATION---- Performed at the Point of Care pO2, Venous, POCT, B 25 Not Applicable mm Hg 09/30/2022 10:54 AM DIRECTOR GLOBAL PCSM Comment: ----ADDITIONAL INFORMATION---- Performed at the Point of Care Base Excess, Venous, POCT, B 6 Not Applicable mmol/L 09/30/2022 10:54 AM DIRECTOR GLOBAL PCSM Comment: ----ADDITIONAL INFORMATION---- Performed at the Point of Care HCO3, Venous, POCT, B 31 Not Applicable mmol/L 09/30/2022 10:54 AM DIRECTOR GLOBAL PCSM Comment: ----ADDITIONAL INFORMATION---- Performed at the Point of Care Sodium, POCT, B 140 135 - 145 mmol/L 09/30/2022 10:54 AM DIRECTOR GLOBAL PCSM Comment: ----ADDITIONAL INFORMATION---- Performed at the Point of Care Potassium, POCT, B 4.3 3.6 - 5.2 mmol/L 09/30/2022 10:54 AM DIRECTOR GLOBAL PCSM Comment: ----ADDITIONAL INFORMATION---- Performed at the Point of Care Calcium, Ionized, POCT, B 5.20 4.65 - 5.30 mg/dL 09/30/2022 10:54 AM DIRECTOR GLOBAL PCSM Comment: ----ADDITIONAL INFORMATION---- Performed at the Point of Care Glucose, POCT, B 117 70 - 140 mg/dL 09/30/2022 10:54 AM DIRECTOR GLOBAL PCSM Comment: ----ADDITIONAL INFORMATION---- Performed at the Point of Care Hematocrit, POCT, B 44.0 35.5 - 44.9 % 09/30/2022 10:54 AM DIRECTOR GLOBAL PCSM Comment: ----ADDITIONAL INFORMATION---- Performed at the Point of Care Blood 09/30/2022 10:3 8 AM DIRECTOR GLOBAL 09/30/2022 10:54 AM DIRECTOR GLOBAL Unknown Provider LAB POCT ORDERABLES - DEVICE POC RST [facility] [address] [place] [address], [facility] PCSM [facility] Laboratories [facility] POC [address] [place] [address] from Last 3 Months or Most Recently Relevant to Health Maintenance Advance Directives For more information, please contact: [phone] * Full Code (Latest Code Status on File) Date Activated Date Inactivated Comments 09/30/2022 4:41 PM 10/02/2022 6:08 PM Question Answer Comments Full Code: Discussed Care Teams Mechanical Engineering Teacher Relationship Specialty Start Date End Date Darius Shaw M.D. [id number] [place] [phone] PCP - General Family Medicine 09/27/22
--- OUTSIDE RECORDS SUMMARY | 2024-01-07 17:05 | XMS_ITS | Clinical Summary ---
Author Name Unknown Organization [facility] Address [place], [place] [address] Care Team Providers Care Ammonium Sulfate Operator Name Role Phone Pcp, No Primary Care [...] durable medical equipment (DME)Indications:Plant ar fasciitis, bilateral [id number] Plantar Fasciitis, night splint, Large 1 Each [...] Name Administration Dates Next Due COVID-19 vaccine ([facility] 30mcg/0.3mL) PF, MDV 07/07/2021 Hepatitis B, Unspecified [...] 01/09/2023 1:44 PM CDT Plan of Treatment Upcoming Encounters Date Type Department Care Team (Late st Contact Info) Description 01/09/2024 7:00 AM CDT Hospital Encounter [facility] [address] [place] [address] Timoteo Gutierrez MD [address] [place] [address] Health Maintenance Due Date Last Done Comments [...] REFLEX MEASURED LDL Routine 08/03/2011 10:31 AM SECURITY AMBASSADOR Screening for other and unspecified cardiovascular conditions from Last 3 Months or Most Recently Relevant to Health Maintenance Results * LIPID PANEL W REFLEX MEASURED LDL (08/03/2011 10:31 AM SECURITY AMBASSADOR) CHOLESTEROL,TOTAL 171 110 - 199 mg/dL [facility] TRIGLYCERIDES 67 <150 mg/dL [facility] HDL CHOLESTEROL 43 >40 mg/dL [facility] CHOL/HDL RATIO 3.98 <4.51 [facility] LDL CHOLESTEROL 115 <131 mg/dL [facility] PATIENT STATUS Fasting [facility] Blood specimen (specimen) BLOOD SPECIMEN / Unknown 08/03/2011 10:31 AM SECURITY AMBASSADOR 08/03/2011 10:23 AM SECURITY AMBASSADOR Jasvir Pickens MD CHEMISTRY [facility] [address] [place] [address] from Last 3 Months or Most Recently Relevant to Health Maintenance Care Teams Ammonium Sulfate Operator Relationship Specialty Start Date End Date Pcp, No . PCP - General 11/07/22
--- OUTSIDE RECORDS SUMMARY | 2024-01-07 17:05 | XMS_ITS | Clinical Summary ---
Author Name Unknown Organization [facility] Address [address] [place] [address] Care Team Providers Care Supervisor Production Name Role Phone Darius Shaw M.D. Primary Care Provider [phone] Source Comments Patient records contain information from all sites at [facility]. For routine questions regarding patient records, call [phone] during business hours, M-F 8:00 AM - 5:00 PM Central Time. Record requests for emergency care only can be directed to [phone] at any time.[facility] Allergies Active Allergy Reactions Criticality Noted Date [...] week 01/10/2023 How often do you attend jehovah's witness or confucianist serv ices? Never 01/10/2023 Do you belong to any clubs o r organizations such as jehovah's witness groups, unions, fraternal or athletic groups, or [...] Answer Date Recorded PHQ-2 Score 3 01/10/2023 [facility]at ional [facility] - Occupational Stress Questionnaire Answer Date [...] place to sleep or slept in a senior care (including now)? No 01/10/2023 Depression Answer Date [...] 11/07/2011, 10/04/2011 Medical Devices Implanted Type Area Skelp Processor Device Identifier Shelf Expiration Date Model / Serial / Lot Mesh Or Patch Mesh or Patch Heart Description:Amplatzer Septal Occluder Asd Closure Device 34mm - Sanders [id number] Implanted:Qty: 1 on 06/20/2006 Septal Defect Occluder Device Other/Legacy - See Implant Description Description:Device Manufactu page hospital - [facility]. Device Status Text - [id number]. Procedures Procedure Name Priority Date/Time Associated Diagnosis Comments BI BREAST SCREENING BILATERAL WITH TOMOSYNTHESIS RAD - Routine (most inpatients and all outpatients) 07/30/2023 2:38 PM CLERK GENERAL OFFICE Screening Mammogram Breast Cancer COLOGUARD Routine 10/28/2022 5:54 PM CLERK GENERAL OFFICE Screening Cancer Colon VBG & LYTES CG8+, POCT, B Routine 09/30/2022 10:38 AM CLERK GENERAL OFFICE EXTI LIPID PANEL REFLEX TO DIRECT LDL Routine 07/27/2021 8:57 AM CLERK GENERAL OFFICE from Last 3 Months or Most Recently Relevant to Health Maintenance Results * BI Breast Screening Bilateral with Tomosynthesis (07/30/2023 2:38 PM CLERK GENERAL OFFICE) Anatomical Region Laterality Modality Breast, Breast Imaging RST L OS, Breast Imaging ARZ LOS, Breast Imaging FLA LOS Bilateral Mammography 08/01/2023 12:2 8 PM CLERK GENERAL OFFICE Impressions 08/01/2023 12:33 PM CLERK GENERAL OFFICE Negative. RECOMMENDATION: ??Annual Screening Mammogram ASSESSMENT: ??BI-RADS: 1: Negative. Narrative 08/01/2023 12:33 PM CLERK GENERAL OFFICE EXAM: ??BI BREAST SCREENING BILATERAL WITH TOMOSYNTHESIS [...] * Cologuard-Sent Out Lab (10/28/2022 5:54 PM CLERK GENERAL OFFICE) Result Negative Negative 11/03/2022 2:48 AM CLERK GENERAL OFFICE [place] Comment: NEGATIVE TEST RESULT. A negative [...] Melchor. et al, N Engl J Med 2014;370(14):4964-4572) The normal value (reference range) for this assay is negative. COLOGUARD RE-SCREENING RECOMMENDATION: Periodic colorectal cancer screening is an important part of preventive healthcare for asymptomatic individuals at average risk for colorectal cancer. ??Following a negative Cologuard result, the [place] Cancer Society and U.S. Multi-Society Task Force screening guidelines recommend a Cologuard re-screening interval of 3 years. References: [place] [employer] Guideline for Colorectal Cancer Screening: https://www.cancer.org/cancer/psiyj-zicjgj-znwrhc/detection- diagnosis-staging/acs-recommendations.html.; Ming MARTINEZ, Barbra TREJO, Erna SimsK, Colorectal Cancer Screening: Recommendations for Physicians and Patients from the U.S. Multi-Society Task Force on Colorectal Cancer Screening , Am J Gastroenterology 2017; 112:5479-4963. TEST DESCRIPTION: Composite algorithmic analysis of stool [...] (Yenny Adkins al, N Engl J Med 2014;370(14):8837-4939.) Cologuard may produce a false negative or false positive result (no colorectal cancer or precancerous polyp present at colonoscopy follow up). A negative Cologuard test result does not guarantee the absence of CRC or advanced adenoma (pre-cancer). The current Cologuard screening interval is every 3 years. ([place] Cancer Society and U.S. Multi-Society Task Force). Cologuard performance data in a 10,000 patient pivotal study using colonoscopy as the reference method can be accessed at the following location: www.iJukebox/results. Additional description of the Cologuard test process, warnings and precautions can be found at www.[employer] Club[employer].com. Stool (Stool) 10/28/2022 5:5 4 PM CLERK GENERAL OFFICE 10/30/2022 1:57 PM CLERK GENERAL OFFICE Darius Shaw M.D. LAB BODY FLUIDS AND STOOLS ORDERABLES [employer] [address] [place] [address] EX [employer] [address] [facility] [facility], [address] [place] [address] * Venous Blood Gas and Electrolytes CG8+, POCT (09/30/2022 10:38 AM CLERK GENERAL OFFICE) Sample Site, POCT Venstick 09/30/2022 10:54 AM CLERK GENERAL OFFICE PCSM Comment: ----ADDITIONAL INFORMATION---- Performed at the Point of Care pH, Venous, POCT, B 7.43 7.32 - 7.43 09/30/2022 10:54 AM CLERK GENERAL OFFICE PCSM Comment: ----ADDITIONAL INFORMATION---- Performed at the Point of Care pCO2, Venous, POCT, B 46 41 - 51 mm Hg 09/30/2022 10:54 AM CLERK GENERAL OFFICE PCSM Comment: ----ADDITIONAL INFORMATION---- Performed at the Point of Care pO2, Venous, POCT, B 25 Not Applicable mm Hg 09/30/2022 10:54 AM CLERK GENERAL OFFICE PCSM Comment: ----ADDITIONAL INFORMATION---- Performed at the Point of Care Base Excess, Venous, POCT, B 6 Not Applicable mmol/L 09/30/2022 10:54 AM CLERK GENERAL OFFICE PCSM Comment: ----ADDITIONAL INFORMATION---- Performed at the Point of Care HCO3, Venous, POCT, B 31 Not Applicable mmol/L 09/30/2022 10:54 AM CLERK GENERAL OFFICE PCSM Comment: ----ADDITIONAL INFORMATION---- Performed at the Point of Care Sodium, POCT, B 140 135 - 145 mmol/L 09/30/2022 10:54 AM CLERK GENERAL OFFICE PCSM Comment: ----ADDITIONAL INFORMATION---- Performed at the Point of Care Potassium, POCT, B 4.3 3.6 - 5.2 mmol/L 09/30/2022 10:54 AM CLERK GENERAL OFFICE PCSM Comment: ----ADDITIONAL INFORMATION---- Performed at the Point of Care Calcium, Ionized, POCT, B 5.20 4.65 - 5.30 mg/dL 09/30/2022 10:54 AM CLERK GENERAL OFFICE PCSM Comment: ----ADDITIONAL INFORMATION---- Performed at the Point of Care Glucose, POCT, B 117 70 - 140 mg/dL 09/30/2022 10:54 AM CLERK GENERAL OFFICE PCSM Comment: ----ADDITIONAL INFORMATION---- Performed at the Point of Care Hematocrit, POCT, B 44.0 35.5 - 44.9 % 09/30/2022 10:54 AM CLERK GENERAL OFFICE PCSM Comment: ----ADDITIONAL INFORMATION---- Performed at the Point of Care Blood 09/30/2022 10:3 8 AM CLERK GENERAL OFFICE 09/30/2022 10:54 AM CLERK GENERAL OFFICE Unknown Provider LAB POCT ORDERABLES - DEVICE POC [facility] [address] [place] [address], [facility] POC [address] [place] [address] from Last 3 Months or Most Recently Relevant to Health Maintenance Advance Directives For more information, please contact: [phone] * Full Code (Latest Code Status on File) Date Activated Date Inactivated Comments 09/30/2022 4:41 PM 10/02/2022 6:08 PM Question Answer Comments Full Code: Discussed Care Teams Supervisor Production Relationship Specialty Start Date End Date Darius Shaw M.D. [place]: [id number] [address] [place] [phone] PCP - General Family Medicine 09/27/22
--- OUTSIDE RECORDS SUMMARY | 2024-01-07 17:05 | XMS_ITS ---
Author Name Unknown Organization [facility] Address [address] [place] [address] Care Team Providers Care Lease Administration Supervisor Name Role Phone Unavailable Unavailable Unavailable Surgery Details Not on file Complications Check Surgery Details section. Procedure Estimated Blood Loss Check Surgery Details section. Procedure Findings Check Surgery Details section. Procedure Specimens Taken Check Surgery Details section.
--- OUTSIDE RECORDS SUMMARY | 2024-01-07 17:06 | XMS_ITS | Encounter Summary ---
Author Name Unknown Organization [facility] Address [address] [place] [address] Care Team Providers Care Emergency Dispatch Operator Name Role Phone Timmy Perez MD Unavailable Unavailable Yung Madrigal MD Unavailable Unavailable Winston Villatoro OD Unavailable [phone] Apple Sykes MD Primary Care Provider [phone] Westley Bates MD Unavailable [phone] Alessandra Cabrales APRN PLASTERER STUCCO Primary Car e Provider Serum, Clara Garland MD Primary Care Provider Serum, Clara Garland MD Unavailable [phone] Serum, Clara Garland MD Unavailable [phone] Denise Woodson Ra, APRN PLASTERER STUCCO Unavailable + [phone] Denise Woodson Ra, APRN, CNP Primary Care Provid er Encounter Details Date Type Department Care Team (Late st Contact Info) Description 05/19/2013 MyC Medical Advice [facility] [place] [facility] [address] [place] [phone] Yung Madrigal MD RETIRED Social History Tobacco [...] Description 01/15/2024 3:30 PM CDT Office Visit [facility] [address] [place] [address] Jacque Alexis APRN PLASTERER STUCCO [address] [place] [address] documented as of this encounter Visit Diagnoses Not on filedocumented in this encounter Care Teams Emergency Dispatch Operator Relationship Specialty Start Date End Date Timmy Perez MD PCP - Obstetrics/Gynecology 03/02/08 08/07/15 Yung Madrigal MD RETIRED PCP - Orthopaedics Orthopedics 08/26/12 Winston Villatoro OD [facility] [place] [address] [place] [address] PCP - Ophthalmology Ophthalmology 02/11/13 Apple Sykes MD [facility] [place] [address] [place] [address] PCP - General Family Practice 05/04/13 10/25/16 Westley Bates MD XXX RETIRED XXX [address] [place] [address] PCP - ENT Otolaryngology 05/14/13 07/28/18 Alessandra Cabrales APRN PLASTERER STUCCO [address] [facility] [place] [address] PCP - General Nurse Practitioner 10/26/16 02/06/17 Clara Cornell MD [address] [facility] [place] [address] PCP - General Internal Medicine 02/07/17 09/20/20 Clara Cornell MD [address] [place] [address] PCP - Assigned PCP 01/17/17 11/18/18 Denise Woodson Ra, APRN PLASTERER [place]UCCO [address] [place] [address] PCP - General Family Practice 09/21/20 Clara Cornell MD [address] [place] [address] Assigned PCP 01/17/17 07/16/20 Denise Woodson Ra, APRN PLASTERER [place]UCCO [address] [place] [address] Assigned PCP 07/17/20 documented as of this encounter
--- OUTSIDE RECORDS SUMMARY | 2024-01-07 17:06 | XMS_ITS | Encounter Summary ---
Author Name Unknown Organization [facility] Address [address] [place] [address] Care Team Providers Care Truck Assembler Name Role Phone Timmy Perez MD Unavailable Unavailable Yung Madrigal MD Unavailable Unavailable Winston Villatoro OD Unavailable [phone] Apple Sykes MD Primary Care Provider [phone] Westley Bates MD Unavailable [phone] Alessandra Cabrales APRN OPERATIONAL INTELLIGENCE ANALYST Primary Car e Provider Serum, Clara Garland MD Primary Care Provider Serum, Clara Garland MD Unavailable [phone] Serum, Clara Garland MD Unavailable [phone] Denise Woodson Ra, APRN OPERATIONAL INTELLIGENCE ANALYST Unavailable + [phone] Denise Woodson Ra, APRN, CNP Primary Care Provid er Encounter Details Date Type Department Care Team (Late st Contact Info) Description 05/06/2013 MyC Medical Advice [facility] [address] [place] [address] Apple Sykes MD [address] [place] [address] Social History Tobacco Use Types Packs/Day Years [...] Description 01/15/2024 3:30 PM CDT Office Visit [facility] [address] [place] [address] Jacque Alexis APRN OPERATIONAL INTELLIGENCE ANALYST [address] [place] [address] documented as of this encounter Visit Diagnoses Not on filedocumented in this encounter Care Teams Truck Assembler Relationship Specialty Start Date End Date Timmy Perez MD PCP - Obstetrics/Gynecology 03/02/08 08/07/15 Yung Madrigal MD RETIRED PCP - Orthopaedics Orthopedics 08/26/12 Winston Villatoro, OD [facility] [address] [place] [address] PCP - Ophthalmology Ophthalmology 02/11/13 Apple Sykes MD [facility] [address] [place] [address] PCP - General Family Practice 05/04/13 10/25/16 Westley Bates MD XXX RETIRED XXX [address] [facility] [address] [place] [address] PCP - ENT Otolaryngology 05/14/13 07/28/18 Alessandra Cabrales APRN OPERATIONAL INTELLIGENCE ANALYST [address] [facility] [place] [address] PCP - General Nurse Practitioner 10/26/16 02/06/17 Clara Cornell MD [address] [facility] [place] [address] PCP - General Internal Medicine 02/07/17 09/20/20 Clara Cornell MD [address] [place] [address] PCP - Assigned PCP 01/17/17 11/18/18 Denise Woodson Ra, APRN OPERATIONAL INTELLIGENCE ANALYST [address] [place] [address] PCP - General Family Practice 09/21/20 Clara Cornell MD [address] [place] [address] Assigned PCP 01/17/17 07/16/20 Denise Woodson Ra, APRN OPERATIONAL INTELLIGENCE ANALYST [address] [place] [address] Assigned PCP 07/17/20 documented as of this encounter
--- OUTSIDE RECORDS SUMMARY | 2024-01-07 17:06 | XMS_ITS | Referral Summary ---
Author Name Unknown Organization [facility] Address [address] [place] [address] Care Team Providers Care Brewery Cellar Worker Name Role Phone Yung Madrigal MD Unavailable Unavailable Winston Villatoro OD Unavailable [phone] Denise Woodson Ra, APRN UPHOLSTERER HELPER Unavailable [phone] Denise Woodson Ra, APRN UPHOLSTERER HELPER Primary Care Provid er Allergies Active Allergy [...] (FLONASE) 50 MCG/ACT nasal sprayIndications:Chr onic rhinitis [place] 2 sprays into both nostrils daily 16 [...] Comments Blood Pressure 108/68 07/27/2021 8:28 AM RECENTERER Pulse 68 07/27/2021 8:28 AM RECENTERER Temperature 36.9 ??C (98.4 ??F) 07/27/2021 8:28 AM CS T Respiratory Rate 12 07/27/2021 8:28 AM RECENTERER Oxygen Saturation 97% 07/27/2021 8:28 AM RECENTERER Inhaled Oxygen Concentration - - Weight 99.3 kg (219 lb) 07/27/2021 8:28 AM RECENTERER Height 174.6 cm (5' 8.75) 02/08/2021 10:22 AM C DT Body Mass Index 32.58 02/08/2021 10:22 AM CDT Plan of Treatment Upcoming Encounters Date Type Department Care Team (Late st Contact Info) Description 01/15/2024 3:30 PM CDT [facility] [address] [place] [address] Jacque Alexis, [place] UPHOLSTERER HELPER [address] [place], [place] [id number] Procedures Procedure Name Priority Date/Time Associated Diagnosis Comments MA SCREENING BILATERAL W/ MAT Routine 04/25/2022 5:03 PM CDT Visit for screening mammogram COMPREHENSIVE METABOLIC PANEL Routine 07/27/2021 8:57 AM RECENTERER Routine general medical examination at a [facility] care facility CARDIOVASCULAR SCREENING; LDL GOAL LESS THAN 160 LIPID REFLEX TO DIRECT LDL PANEL Routine 07/27/2021 8:57 AM RECENTERER CARDIOVASCULAR SCREENING; LDL GOAL LESS THAN 160 [...] patient. JEVON HOWELL MD Denise Woodson APRN UPHOLSTERER HELPER IMG MAMMOGRA PHY ORDERABLES * (ABNORMAL) Lipid panel reflex to direct LDL Fasting (07/27/2021 8:57 AM RECENTERER) Cholesterol 202(H) <200 mg/dL 07/28/2021 10:12 AM RECENTERER [facility] Triglycerides 91 <150 mg/dL 07/28/2021 10:12 AM RECENTERER [facility] Direct Measure HDL 56 >=50 mg/dL 07/28/2021 10:12 AM RECENTERER [facility] LDL Cholesterol Calculated 128(H) <=100 mg/dL 07/28/2021 10:12 AM RECENTERER [facility] Non HDL Cholesterol 146(H) <130 mg/dL 07/28/2021 10:12 AM RECENTERER [facility] Patient Fasting > 8hrs? Yes 07/28/2021 10:12 AM RECENTERER [facility] Blood STRUCTURE OF RIGHT UPPER LIMB / Unknown Venipuncture / Unknown 07/27/2021 8:57 AM RECENTERER 07/27/2021 8:57 AM RECENTERER Narrative [facility] - 07/28/2021 10:12 AM RECENTERER Cholesterol Desirable: ??<200 mg/dL Triglycerides Normal: ??Less [...] equal to 220 mg/dL Denise Woodson APRN UPHOLSTERER HELPER LAB - BLOOD ORDERABLES [facility] [address] Lab (no room number, 1st floor of clinic) [place] [address], [facility] [phone] * Comprehensive metabolic panel (BMP + Alb, Alk Phos, ALT, AST, Total. Bili, TP) (07/27/2021 8:57 AM RECENTERER) Sodium 139 133 - 144 mmol/L 07/28/2021 10:12 AM RECENTERER [facility] Potassium 4.0 3.4 - 5.3 mmol/L 07/28/2021 10:12 AM RECENTERER [facility] Chloride 105 94 - 109 mmol/L 07/28/2021 10:12 AM RECENTERER [facility] Carbon Dioxide (CO2) 26 20 - 32 mmol/L 07/28/2021 10:12 AM RECENTERER [facility] Anion Gap 8 3 - 14 mmol/L 07/28/2021 10:12 AM RECENTERER [facility] Urea Nitrogen 20 7 - 30 mg/dL 07/28/2021 10:12 AM RECENTERER [facility] Creatinine 0.74 0.52 - 1.04 mg/dL 07/28/2021 10:12 AM RECENTERER [facility] Calcium 8.8 8.5 - 10.1 mg/dL 07/28/2021 10:12 AM RECENTERER [facility] Glucose 95 70 - 99 mg/dL 07/28/2021 10:12 AM RECENTERER [facility] Alkaline Phosphatase 67 40 - 150 U/L 07/28/2021 10:12 AM RECENTERER [facility] AST 8 0 - 45 U/L 07/28/2021 10:12 AM RECENTERER [facility] ALT 18 0 - 50 U/L 07/28/2021 10:12 AM RECENTERER [facility] Protein Total 7.6 6.8 - 8.8 g/dL 07/28/2021 10:12 AM RECENTERER [facility] Albumin 3.4 3.4 - 5.0 g/dL 07/28/2021 10:12 AM RECENTERER [facility] Bilirubin Total 0.5 0.2 - 1.3 mg/dL 07/28/2021 10:12 AM RECENTERER [facility] GFR Estimate >90 >60 mL/min/1.7 3m2 07/28/2021 10:12 AM RECENTERER [facility] Comment:As of March 26, 2021, eGFR is calculated by the CKD-EPI creatinine equation, without race adjustment. eGFR can be influenced by muscle mass, exercise, and diet. The reported eGFR is an estimation only and is only applicable if the renal function is stable. Blood STRUCTURE OF RIGHT UPPER LIMB / Unknown Venipuncture / Unknown 07/27/2021 8:57 AM RECENTERER 07/27/2021 8:57 AM RECENTERER Denise Woodson APRN UPHOLSTERER HELPER LAB - BLOOD ORDERABLES [facility] [address] Lab (no room number, 1st floor of clinic) [place] [address], [facility] [phone] from Last 3 Months or Most Recently Relevant to Health Maintenance Care Teams Brewery Cellar Worker Relationship Specialty Start Date End Date Yung Madrigal MD RETIRED PCP - Orthopaedics Orthopedics 08/26/12 Winston Villatoro OD [facility] [address] [facility] [address] [place] [address] PCP - Ophthalmology Ophthalmology 02/11/13 Denise Woodson Ra, APRN UPHOLSTERER HELPER [address] [place] [address] PCP - General Family Practice 09/21/20 Denise Woodson Ra, APRN UPHOLSTERER HELPER [address] [place] [address] Assigned PCP 07/17/20
--- OUTSIDE RECORDS SUMMARY | 2024-01-07 17:06 | XMS_ITS | Encounter Summary ---
Author Name Unknown Organization [facility] Address [address] [place] [address] Care Team Providers Care Window Glass Installer Name Role Phone Timmy Perez MD Unavailable Unavailable Yung Madrigal MD Unavailable Unavailable Frw, None Primary Care Provider Unavailrigoberto e Winston Villatoro OD Unavailable [phone] Apple Sykes MD Primary Care Provider [phone] Westley Bates MD Unavailable [phone] Alessandra Cabrales APRN INSPECTOR EYEGLASS Primary Car e Provider Serum, Clara Garland MD Primary Care Provider Serum, Clara Garland MD Unavailable [phone] Serum, Clara Garland MD Unavailable [phone] Denise Woodson Ra, APRN INSPECTOR EYEGLASS Unavailable [phone] Denise Woodson Ra, APRN INSPECTOR EYEGLASS Primary Care Provid er Reason for Visit * Reason Onset Date Comments Medication Question 04/21/2013 Farhan Saez [facility] Encounter Details Date Type Department Care Team (Late st Contact Info) Description 04/21/2013 Telephone [facility] in [facility] [address] [place] [address] [place] [address] Janna Rodriguez, web retailer Question ([facility]) Social History Tobacco Use Types Packs/Day Years [...] Office Visit [facility] [address] [place] [phone] Jacque Alexis APRN INSPECTOR EYEGLASS [address] [place], [place] [phone] documented as of this encounter Visit Diagnoses Not on filedocumented in this encounter Care Teams Window Glass Installer Relationship Specialty Start Date End Date Timmy Perez MD PCP - Obstetrics/Gynecology 03/02/08 08/07/15 Yung Madrigal MD RETIRED PCP - Orthopaedics Orthopedics 08/26/12 Frw, None PCP - General Family Practice 08/26/12 05/03/13 Winston Villatoro OD [facility] [address] [place] [address] PCP - Ophthalmology Ophthalmology 02/11/13 Apple Sykes MD [facility] [address] [place] [address] PCP - General Family Practice 05/04/13 10/25/16 Westley Bates MD XXX RETIRED XXX [address] [place] [address] PCP - ENT Otolaryngology 05/14/13 07/28/18 GeorginaAlessandra Gómez APRN INSPECTOR EYEGLASS [address] [facility] [place] [address] PCP - General Nurse Practitioner 10/26/16 02/06/17 Clara Cornell MD [address] [facility] [place] [address] PCP - General Internal Medicine 02/07/17 09/20/20 Clara Cornell MD [address] [place] [address] PCP - Assigned PCP 01/17/17 11/18/18 Denise Woodson Ra, WILDLAND FIRE FIGHTER INSPECTOR EYEGLASS [address] [place] [address] PCP - General Family Practice 09/21/20 Clara Cornell MD [address] [place] [address] Assigned PCP 01/17/17 07/16/20 Denise Woodson Ra, WILDLAND FIRE FIGHTER INSPECTOR EYEGLASS [address] [place] [address] Assigned PCP 07/17/20 documented as of this encounter
--- OUTSIDE RECORDS SUMMARY | 2024-01-07 17:06 | XMS_ITS | Encounter Summary ---
Author Name Unknown Organization [facility] Address [address] [place] [address]. [place] [address] Care Team Providers Care Core Inspector Name Role Phone Yung Madrigal MD Unavailable Unavailable Winston Villatoro OD Unavailable [phone] Denise Woodson Ra, APRN APPLIANCE SERVICER Unavailable + [phone] Denise Woodson Ra, APRN APPLIANCE SERVICER Primary Care Provid er Reason for Visit * Reason Onset Date Comments URI 09/21/2020 Encounter Details Date Type Department Care Team (Late st Contact Info) Description 09/21/2020 [facility] Medical Advice [facility] [address] [place] [address] Denise Woodson Ra, APRN APPLIANCE SERVICER [address] [place] [address] URI Social History Tobacco Use [...] COVID-19? No / Unsure 09/21/2020 12:04 PM ASSOCIATE PRODUCT MANAGER documented as of this encounter Miscellaneous Notes * Telephone Encounter - Kati Yang RN - 09/21/2020 10:54 AM CST Solid[employer] message sent to patient. Kati Yang RN CIATE PRODUCT MANAGER documented in this encounter Plan of Treatment Upcoming Encounters Date Type Department Care Team (Late st Contact Info) Description 01/15/2024 3:30 PM CDT [facility] [address] [place] [address] Jacque Alexis APRN APPLIANCE SERVICER [address] [place], [place] [id number] documented as of this encounter Visit Diagnoses Not on filedocumented in this encounter Additional Health Concerns Assessment Noted Time PHQ-9 Depression Total Score: 0 06/15/20 19 7:09 PM CDT documented as of this encounter Care Teams Core Inspector Relationship Specialty Start Date End Date Yung Madrigal MD RETIRED PCP - Orthopaedics Orthopedics 08/26/12 Winston Villatoro OD [facility] [place] [address] [facility] [address] [place] [address] PCP - Ophthalmology Ophthalmology 02/11/13 Denise Woodson Ra, APRN APPLIANCE SERVICER [address] [place] [address] PCP - General Family Practice 09/21/20 Denise Woodson Ra, APRN APPLIANCE SERVICER [address] [place] [address] Assigned PCP 07/17/20 documented as of this encounter
--- OUTSIDE RECORDS SUMMARY | 2024-01-07 17:06 | XMS_ITS | Encounter Summary ---
Author Name Unknown Organization [facility] Address [address] [place] [address]. [place] [address] Care Team Providers Care Orchestra Teacher Name Role Phone Yung Madrigal MD Unavailable Unavailable Winston Villatoro OD Unavailable [phone] Denise Woodson Ra, APRN COMBINATION TECHNICIAN Unavailable Denise Woodson Ra, APRN COMBINATION TECHNICIAN Primary Care Provid er Reason for Visit * Reason Comments Medication Refill Encounter Details Date Type Department Care Team (Late st Contact Info) Description [facility] [address] [place] [address] Denise Woodson Ra, APRN COMBINATION TECHNICIAN [address] [place] [address] Medication Refill Social History Tobacco [...] as final attempt to schedule. Karla Velasquez Culinary Worker * Telephone Encounter - Karla Morales - 01/17/2023 8:59 AM CDT LVM requesting a call back for an appt (physical). One more attempt will be made. Karla Morales [place] Culinary Worker * Telephone Encounter - Arianna Lo - 01/10/2023 3:33 PM CDT Sent Etacts message requesting a call back for an appt. Two more attempts will be made. Arianna Lo [place] Culinary Worker * Telephone Encounter - Leslie Mcclellan RN [...] 0 0 0 Leslie Mcclellan RN, BSN [facility] documented in this encounter Plan of Treatment Upcoming Encounters Date Type Department Care Team (Late st Contact Info) Description 01/15/2024 3:30 PM CDT Office Visit [facility] [address] [place] [address] Jacque Alexis APRN COMBINATION TECHNICIAN [address] [place] [address] documented as of this encounter Visit Diagnoses Diagnosis Moderate persistent asthma without complication Unspecified asthma documented in this encounter Additional Health Concerns Assessment Noted Time PHQ-9 Depression Total Score: 0 06/23/20 21 4:11 PM CDT documented as of this encounter Care Teams Orchestra Teacher Relationship Specialty Start Date End Date Yung Madrigal MD RETIRED PCP - Orthopaedics Orthopedics 08/26/12 Winston Villatoro OD [facility] [place] [address] [place] [address] PCP - Ophthalmology Ophthalmology 02/11/13 Denise Woodson Ra, APRN COMBINATION TECHNICIAN [address] [place] [address] PCP - General Family Practice 09/21/20 Denise Woodson Ra, APRN COMBINATION TECHNICIAN [address] [place] [address] Assigned PCP 07/17/20 documented as of this encounter
--- OUTSIDE RECORDS SUMMARY | 2024-01-07 17:06 | XMS_ITS | Encounter Summary ---
Author Name Unknown Organization [facility] Address [address] [place] [address] Care Team Providers Care Ross Furnace Operator Name Role Phone Timmy Perez MD Unavailable Unavailable Yung Madrigal MD Unavailable Unavailable Winston Villatoro OD Unavailable [phone] Apple Sykes MD Primary Care Provider [phone] Westley Bates MD Unavailable [phone] Alessandra Cabrales APRN CHANGE MANAGEMENT SPECIALIST Primary Car e Provider Serum, Clara Garland MD Primary Care Provider Serum, Clara Garland MD Unavailable [phone] Serum, Clara Garland MD Unavailable [phone] Denise Woodson Ra, APRN CHANGE MANAGEMENT SPECIALIST Unavailable + [phone] Denise Woodson Ra, APRN, CNP Primary Care Provid er Encounter Details Date Type Department Care Team (Late st Contact Info) Description 05/26/[address] [facility] [place] Orthopedics [address] [place] [phone] Yung Madrigal MD RETIRED Social History Tobacco [...] Description 01/15/2024 3:30 PM CDT Office Visit [facility] [address] [place] [address] Jacque Alexis APRN CHANGE MANAGEMENT SPECIALIST [address] [place] [address] documented as of this encounter Visit Diagnoses Not on filedocumented in this encounter Care Teams Ross Furnace Operator Relationship Specialty Start Date End Date Timmy Perez MD PCP - Obstetrics/Gynecology 03/02/08 08/07/15 Yung Madrigal MD RETIRED PCP - Orthopaedics Orthopedics 08/26/12 Winston Villatoro OD [facility] [place] [address] [place] [address] PCP - Ophthalmology Ophthalmology 02/11/13 Apple Sykes MD [facility] [place] [address] [place] [address] PCP - General Family Practice 05/04/13 10/25/16 Westley Bates MD XXX RETIRED XXX [address] [place] [address] PCP - ENT Otolaryngology 05/14/13 07/28/18 Alessandra Cabrales APRN CHANGE MANAGEMENT SPECIALIST [address] [facility] [place] [address] PCP - General Nurse Practitioner 10/26/16 02/06/17 Clara Cornell MD [address] [facility] [place] [address] PCP - General Internal Medicine 02/07/17 09/20/20 Clara Cornell MD [address] [place] [address] PCP - Assigned PCP 01/17/17 11/18/18 Denise Woodson Ra, APRN CHANGE MANAGEMENT SPECIALIST [address] [place] [address] PCP - General Family Practice 09/21/20 Clara Cornell MD [address] [place] [address] Assigned PCP 01/17/17 07/16/20 Denise Woodson Ra, APRN CHANGE MANAGEMENT SPECIALIST [address] [place] [address] Assigned PCP 07/17/20 documented as of this encounter
--- OUTSIDE RECORDS SUMMARY | 2024-01-07 17:06 | XMS_ITS | Encounter Summary ---
Author Name Unknown Organization [facility] Address [address] [place] [address] Care Team Providers Care Automat Watcher Name Role Phone Timmy Perez MD Unavailable Unavailable Yung Madrigal MD Unavailable Unavailable Winston Villatoro OD Unavailable [phone] Apple Sykes MD Primary Care Provider [phone] Westley Bates MD Unavailable [phone] Alessandra Cabrales APRN STAB SETTER AND DRILLER Primary Car e Provider Serum, Clara Garland MD Primary Care Provider Serum, Clara Garland MD Unavailable Serum, Clara Garland MD Unavailable Denise Woodson Ra, APRN STAB SETTER AND DRILLER Unavailable [phone] Denise Woodson Ra, APRN, CNP Primary Care Provid er Reason for Visit * Reason Onset Date Comments MyChart Communication 05/30/2013 Encounter Details Date Type Department Care Team (Latest Contact Info) Description 05/30/2013 MyC Medical Advice [facility] [address] [place] [address] Apple Sykes MD [address] [place] [address] MyChart Communication Social History Tobacco Use Types [...] Description 01/15/2024 3:30 PM CDT Office Visit [facility] [address] [place] [address] Jacque Alexis APRN STAB SETTER AND DRILLER [address] [place] [address] documented as of this encounter Visit Diagnoses Not on filedocumented in this encounter Care Teams Automat Watcher Relationship Specialty Start Date End Date Timmy Perez MD PCP - Obstetrics/Gynecology 03/02/08 08/07/15 Yung Madrigal MD RETIRED PCP - Orthopaedics Orthopedics 08/26/12 Winston Villatoro OD [facility] [place] [address] [place] [address] PCP - Ophthalmology Ophthalmology 02/11/13 Apple Sykes MD [facility] [place] [address] [place] [address] PCP - General Family Practice 05/04/13 10/25/16 Westley Bates MD XXX RETIRED XXX [address] [place] [address] PCP - ENT Otolaryngology 05/14/13 07/28/18 Alessandra Cabrales APRN STAB SETTER AND DRILLER [address] [place] [address] [place] [address] PCP - General Nurse Practitioner 10/26/16 02/06/17 Clara Cornell MD [address] [facility] [place] [address] PCP - General Internal Medicine 02/07/17 09/20/20 Clara Cornell MD [address] [place] [address] PCP - Assigned PCP 01/17/17 11/18/18 Denise Woodson Ra, APRN STAB SETTER AND DRILLER [address] [place] [address] PCP - General Family Practice 09/21/20 Clara Cornell MD [address] [facility] [place] [address] Assigned PCP 01/17/17 07/16/20 Denise Woodson Ra, APRN STAB SETTER AND DRILLER [address] [place] [address] Assigned PCP 07/17/20 documented as of this encounter
--- OUTSIDE RECORDS SUMMARY | 2024-01-07 17:06 | XMS_ITS | Encounter Summary ---
Author Name Unknown Organization [facility] Address [address] [place] [address]. [place] [address] Care Team Providers Care Nursery Rn Name Role Phone Yung Madrigal MD Unavailable Unavailable Winston Villatoro OD Unavailable Denise Woodson Ra, APRN ELEVATOR TECHNICIAN Unavailable + [phone] Denise Woodson Ra, APRN ELEVATOR TECHNICIAN Primary Care Provid er Reason for Visit * Reason Comments Medication Refill Encounter Details Date Type Department Care Team (Late st Contact Info) Description 02/19/2022 Refill [facility] [address] [place] [address] Denise Woodson Ra, APRN ELEVATOR TECHNICIAN [address] [place] [address] Medication Refill Social History Tobacco [...] Description 01/15/2024 3:30 PM CDT Office Visit [facility] [address] [facility] [place] [address] Jacque Alexis APRN ELEVATOR TECHNICIAN [address] [place] [address] documented as of this encounter Visit Diagnoses Diagnosis Moderate persistent asthma without complication Unspecified asthma documented in this encounter Additional Health Concerns Assessment Noted Time PHQ-9 Depression Total Score: 0 06/23/20 21 4:11 PM CDT documented as of this encounter Care Teams Nursery Rn Relationship Specialty Start Date End Date Yung Madrigal MD RETIRED PCP - Orthopaedics Orthopedics 08/26/12 Winston Villatoro OD [facility] [address] [facility] [address] [place] [address] PCP - Ophthalmology Ophthalmology 02/11/13 Denise Woodson Ra, APRN ELEVATOR TECHNICIAN [address] [place] [address] PCP - General Family Practice 09/21/20 Denise Woodson Ra, APRN ELEVATOR TECHNICIAN [address] [place] [address] Assigned PCP 07/17/20 documented as of this encounter
--- OUTSIDE RECORDS SUMMARY | 2024-01-07 17:06 | XMS_ITS | Encounter Summary ---
Author Name Unknown Organization [facility] Address [address] [place] [address] Care Team Providers Care Senior Center Manager Name Role Phone Yung Madrigal MD Unavailable Unavailable Winston Villatoro OD Unavailable [phone] Serum, Clara Garland MD Primary Care Provider Serum, Clara Garland MD Unavailable [phone] Denise Woodson Ra, APRN MD ALLERGY IMMUNOLOGY Unavailable [phone] Denise Woodson Ra, APRN MD ALLERGY IMMUNOLOGY Primary Care Provid er Encounter Details Date Type Department Care Team (Late st Contact Info) Description 01/21/2019 MyC Medical Advice [address] [place] [phone] [facility] Social History Tobacco Use Types Packs/Day [...] 3:30 PM CDT Office Visit [facility] [address] [place] [address] Jacque Alexis APRN MD ALLERGY IMMUNOLOGY [address] [place] [address] documented as of this encounter Visit Diagnoses Not on filedocumented in this encounter Additional Health Concerns Assessment Noted Time PHQ-9 Depression Total Score: 0 02/09/20 17 7:29 AM CDT documented as of this encounter Care Teams Senior Center Manager Relationship Specialty Start Date End Date Yung Madrigal MD RETIRED PCP - Orthopaedics Orthopedics 08/26/12 Winston Villatoro OD [facility] [place] [address] [place] [address] PCP - Ophthalmology Ophthalmology 02/11/13 Clara Cornell MD [facility] [place] [address] [place] [address] PCP - General Internal Medicine 02/07/17 09/20/20 Denise Woodson Ra, APRN MD ALLERGY IMMUNOLOGY [address] [place] [address] PCP - General Family Practice 09/21/20 Clara Cornell MD [address] [place] [address] Assigned PCP 01/17/17 07/16/20 Denise Woodson Ra, APRN MD ALLERGY IMMUNOLOGY [address] [place] [address] Assigned PCP 07/17/20 documented as of this encounter
--- OUTSIDE RECORDS SUMMARY | 2024-01-07 17:06 | XMS_ITS | Encounter Summary ---
Author Name Unknown Organization [facility] Address [address] [place] [address] Care Team Providers Care Tile Helper Name Role Phone Yung Madrigal MD Unavailable Unavailable Winston Villatoro OD Unavailable [phone] Denise Woodson Ra, APRN SALVAGE MACHINE OPERATOR Unavailable + [phone] Denise Woodson Ra, APRN SALVAGE MACHINE OPERATOR Primary Care Provid er Encounter Details Date Type Department Care Team (Late st Contact Info) Description 01/10/2023 [facility] [address] [place] [address] Arianna Lo Social History Tobacco [...] 3:30 PM CDT [facility] [address] [place] [address] Jacque Alexis APRN SALVAGE MACHINE OPERATOR [address] [place] [address] documented as of this encounter Visit Diagnoses Not on filedocumented in this encounter Additional Health Concerns Assessment Noted Time PHQ-9 Depression Total Score: 0 06/23/20 21 4:11 PM CDT documented as of this encounter Care Teams Tile Helper Relationship Specialty Start Date End Date Yung Madrigal MD RETIRED PCP - Orthopaedics Orthopedics 08/26/12 Winston Villatoro OD [facility] [place] [address] [place] [address] PCP - Ophthalmology Ophthalmology 02/11/13 Denise Woodson Ra, APRN SALVAGE MACHINE OPERATOR [address] [place] [address] PCP - General Family Practice 09/21/20 Denise Woodson Ra, APRN SALVAGE MACHINE OPERATOR [address] [place] [address] Assigned PCP 07/17/20 documented as of this encounter
--- OUTSIDE RECORDS SUMMARY | 2024-01-07 17:06 | XMS_ITS | Encounter Summary ---
Author Name Unknown Organization [facility] Address [address] [place] [address] Care Team Providers Care Statistical Consultant Name Role Phone Yung Madrigal MD Unavailable Unavailable Winston Villatoro OD Unavailable [phone] Denise Woodson Ra, APRN SMOKEHOUSE WORKER Unavailable + [phone] Denise Wod[place]on Ra, APRN SMOKEHOUSE WORKER Primary Care Provid er Encounter Details Date Type Department Care Team (Late Contact Info) Description 12/30/2020 [facility] [address] [place] [address] Jessica Phipps, BIBI Social History [...] Description 01/15/2024 3:30 PM CDT Office Visit [facility] [address] [place] [address] Jacque Alexis APRN SMOKEHOUSE WORKER [address] [place] [address] documented as of this encounter Visit Diagnoses Not on filedocumented in this encounter Additional Health Concerns Assessment Noted Time PHQ-9 Depression Total Score: 0 06/15/20 19 7:09 PM CDT documented as of this encounter Care Teams Statistical Consultant Relationship Specialty Start Date End Date Yung Madrigal MD RETIRED PCP - Orthopaedics Orthopedics 08/26/12 Winston Villatoro OD [facility] [place] [address] [facility] [address] [place] [address] PCP - Ophthalmology Ophthalmology 02/11/13 Denise Woodson Ra, APRN SMOKEHOUSE WORKER [address] [place] [address] PCP - General Family Practice 09/21/20 Denise Woodson Ra, APRN SMOKEHOUSE WORKER [address] [place] [address] Assigned PCP 07/17/20 documented as of this encounter
--- OUTSIDE RECORDS SUMMARY | 2024-01-07 17:06 | XMS_ITS | Encounter Summary ---
Author Name Unknown Organization [facility] Address [address] [place] [address]. [place] [address] Care Team Providers Care Tag Press Operator Name Role Phone Yung Madrigal MD Unavailable Unavailable Winston Villatoro OD Unavailable [phone] Denise Woodson Ra, APRN COFOUNDER Unavailable + [phone] Denise Woodson Ra, APRN COFOUNDER Primary Care Provid er Reason for Visit * Reason Comments Medication Refill Encounter Details Date Type Department Care Team (Late st Contact Info) Description 06/11/[address] [place] [address] Denise Woodson Ra, APRN COFOUNDER [address] [place], [place] [id number] Medication Refill Social History Tobacco Use Types [...] Description 01/15/2024 3:30 PM CDT Office Visit [facility] [address] [place] [address] Jacque Alexis APRN COFOUNDER [address] [place] [address] documented as of this encounter Visit Diagnoses Diagnosis Insomnia, unspecified type documented in this encounter Additional Health Concerns Assessment Noted Time PHQ-9 Depression Total Score: 0 01/05/20 21 9:31 AM CDT documented as of this encounter Care Teams Tag Press Operator Relationship Specialty Start Date End Date Yung Madrigal MD RETIRED PCP - Orthopaedics Orthopedics 08/26/12 Winston Villatoro OD [facility] [place] [address] [facility] [address] [place] [address] PCP - Ophthalmology Ophthalmology 02/11/13 Denise Woodson Ra, APRN COFOUNDER [address] [place] [address] PCP - General Family Practice 09/21/20 Denise Woodson Ra, APRN COFOUNDER [address] [place] [address] Assigned PCP 07/17/20 documented as of this encounter
--- OUTSIDE RECORDS SUMMARY | 2024-01-07 17:06 | XMS_ITS | Encounter Summary ---
Author Name Unknown Organization [facility] Address [address] [place] [address] Care Team Providers Care Commercial Specialist Name Role Phone Timmy Perez MD Unavailable Unavailable Encounter Details Date Type Department Care Team (Late st Contact Info) Description 01/17/2012 3:20 PM CDT [facility] in [address] [phone] Luis Walsh [address] [place] [address] Interface, MD [place] Social History Tobacco Use [...] [facility] [address] [place] [address] Jacque Alexis APRN [facility] [address] [place] [address] documented as of this encounter Visit Diagnoses Not on filedocumented in this encounter Care Teams Commercial Specialist Relationship Specialty Start Date End Date Timmy Perez MD PCP - Obstetrics/Gynecology 03/02/0807/18 documented as of this encounter
--- OUTSIDE RECORDS SUMMARY | 2024-01-07 17:06 | XMS_ITS | Encounter Summary ---
Author Name Unknown Organization [facility] [place] Address [address] [place] [address] Care Team Providers Care Beef Specialist Name Role Phone Yung Madrigal MD Unavailable Unavailable Winston Villatoro OD Unavailable [phone] Serum, Clara Garland MD Primary Care Provider Serum, Clara Garland MD Unavailable [phone] Denise Woodson Ra, APRN BATCH STILL OPERATOR Unavailable [phone] Denise Woodson Ra, APRN BATCH STILL OPERATOR Primary Care Provid er Encounter Details Date Type Department Care Team (Late st Contact Info) Description 06/16/2019 MyC Medical Advice [address] [place] [address] Serum, Clara Garland MD [address] [place] [address] Social History Tobacco Use Types [...] Description 01/15/2024 3:30 PM CDT Office Visit [address] [address] Jacque Alexis APRN BATCH STILL OPERATOR [address] [place] [address] documented as of this encounter Visit Diagnoses Not on filedocumented in this encounter Additional Health Concerns Assessment Noted Time PHQ-9 Depression Total Score: 0 06/15/20 19 7:09 PM CDT documented as of this encounter Care Teams Beef Specialist Relationship Specialty Start Date End Date Yung Madrigal MD RETIRED PCP - Orthopaedics Orthopedics 08/26/12 Winston Villatoro OD [facility] [place] [address] [place] [address] PCP - Ophthalmology Ophthalmology 02/11/13 Clara Cornell MD [facility] [place] [address] [place] [address] PCP - General Internal Medicine 02/07/17 09/20/20 Denise Woodson Ra, APRN BATCH STILL OPERATOR [address] [place] [address] PCP - General Family Practice 09/21/20 Clara Cornell MD [address] [place] [address] Assigned PCP 01/17/17 07/16/20 Denise Woodson Ra, APRN BATCH STILL OPERATOR [address] [place] [address] Assigned PCP 07/17/20 documented as of this encounter
--- OUTSIDE RECORDS SUMMARY | 2024-01-07 17:06 | XMS_ITS | Clinical Summary ---
Author Name Unknown Organization [place] Address [address] [place] [address] Care Team Providers Care Retail Seasonal Specialist Name Role Phone Yung Madrigal MD Unavailable Unavailable Winston Villatoro OD Unavailable [phone] Denise Woodson Ra, APRN APPLICATIONS ANALYST Unavailable [phone] Denise Woodson Ra, APRN APPLICATIONS ANALYST Primary Care Provid er Allergies Active Allergy [...] (FLONASE) 50 MCG/ACT nasal sprayIndications:Chr onic rhinitis [place] 2 sprays into both nostrils daily 16 [...] Comments Blood Pressure 108/68 07/27/2021 8:28 AM FEEDER SWITCHBOARD OPERATOR Pulse 68 07/27/2021 8:28 AM FEEDER SWITCHBOARD OPERATOR Temperature 36.9 ??C (98.4 ??F) 07/27/2021 8:28 AM CS T Respiratory Rate 12 07/27/2021 8:28 AM FEEDER SWITCHBOARD OPERATOR Oxygen Saturation 97% 07/27/2021 8:28 AM FEEDER SWITCHBOARD OPERATOR Inhaled Oxygen Concentration - - Weight 99.3 kg (219 lb) 07/27/2021 8:28 AM FEEDER SWITCHBOARD OPERATOR Height 174.6 cm (5' 8.75) 02/08/2021 10:22 AM C DT Body Mass Index 32.58 02/08/2021 10:22 AM CDT Plan of Treatment Upcoming Encounters Date Type Department Care Team (Late st Contact Info) Description 01/15/2024 3:30 PM CDT Office Visit [facility] [address] [place] [phone] Jacque Alexis APRN APPLICATIONS ANALYST [address] [place] [address] Health Maintenance Due Date Last Done Comments [...] COMPREHENSIVE METABOLIC PANEL Routine 07/27/2021 8:57 AM FEEDER SWITCHBOARD OPERATOR Routine general medical examination at a health care facility CARDIOVASCULAR SCREENING; LDL GOAL LESS THAN 160 LIPID REFLEX TO DIRECT LDL PANEL Routine 07/27/2021 8:57 AM FEEDER SWITCHBOARD OPERATOR CARDIOVASCULAR SCREENING; LDL GOAL LESS THAN 160 [...] patient. IRMA HOWELL MD Denise Woodson APRN APPLICATIONS ANALYST IMG MAMMOGRA PHY ORDERABLES * (ABNORMAL) Lipid panel reflex to direct LDL Fasting (07/27/2021 8:57 AM FEEDER SWITCHBOARD OPERATOR) Cholesterol 202(H) <200 mg/dL 07/28/2021 10:12 AM FEEDER SWITCHBOARD OPERATOR [facility] Triglycerides 91 <150 mg/dL 07/28/2021 10:12 AM FEEDER SWITCHBOARD OPERATOR [facility] Direct Measure HDL 56 >=50 mg/dL 07/28/2021 10:12 AM FEEDER SWITCHBOARD OPERATOR [facility] LDL Cholesterol Calculated 128(H) <=100 mg/dL 07/28/2021 10:12 AM FEEDER SWITCHBOARD OPERATOR [facility] Non HDL Cholesterol 146(H) <130 mg/dL 07/28/2021 10:12 AM FEEDER SWITCHBOARD OPERATOR [facility] Patient Fasting > 8hrs? Yes 07/28/2021 10:12 AM FEEDER SWITCHBOARD OPERATOR [facility] Blood STRUCTURE OF RIGHT UPPER LIMB / Unknown Venipuncture / Unknown 07/27/2021 8:57 AM FEEDER SWITCHBOARD OPERATOR 07/27/2021 8:57 AM FEEDER SWITCHBOARD OPERATOR Narrative [facility] LAB[facility]ORY - 07/28/2021 10:12 AM FEEDER SWITCHBOARD OPERATOR Cholesterol Desirable: ??<200 mg/dL Triglycerides Normal: ??Less [...] equal to 220 mg/dL Denise Woodson APRN APPLICATIONS ANALYST LAB - BLOOD ORDERABLES OX LABORATORY [facility] [address] Lab (no room number, 1st floor of clinic) [place] [address], [facility] [phone] * Comprehensive metabolic panel (BMP + Alb, Alk Phos, ALT, AST, Total. Bili, TP) (07/27/2021 8:57 AM FEEDER SWITCHBOARD OPERATOR) Sodium 139 133 - 144 mmol/L 07/28/2021 10:12 AM FEEDER SWITCHBOARD OPERATOR [facility]ORY Potassium 4.0 3.4 - 5.3 mmol/L 07/28/2021 10:12 AM FEEDER SWITCHBOARD OPERATOR [facility] Chloride 105 94 - 109 mmol/L 07/28/2021 10:12 AM FEEDER SWITCHBOARD OPERATOR [facility] Carbon Dioxide (CO2) 26 20 - 32 mmol/L 07/28/2021 10:12 AM FEEDER SWITCHBOARD OPERATOR [facility] Anion Gap 8 3 - 14 mmol/L 07/28/2021 10:12 AM FEEDER SWITCHBOARD OPERATOR [facility] Urea Nitrogen 20 7 - 30 mg/dL 07/28/2021 10:12 AM FEEDER SWITCHBOARD OPERATOR [facility] Creatinine 0.74 0.52 - 1.04 mg/dL 07/28/2021 10:12 AM FEEDER SWITCHBOARD OPERATOR [facility] Calcium 8.8 8.5 - 10.1 mg/dL 07/28/2021 10:12 AM FEEDER SWITCHBOARD OPERATOR [facility] Glucose 95 70 - 99 mg/dL 07/28/2021 10:12 AM FEEDER SWITCHBOARD OPERATOR [facility] Alkaline Phosphatase 67 40 - 150 U/L 07/28/2021 10:12 AM FEEDER SWITCHBOARD OPERATOR [facility] AST 8 0 - 45 U/L 07/28/2021 10:12 AM FEEDER SWITCHBOARD OPERATOR [facility] ALT 18 0 - 50 U/L 07/28/2021 10:12 AM FEEDER SWITCHBOARD OPERATOR [facility] Protein Total 7.6 6.8 - 8.8 g/dL 07/28/2021 10:12 AM FEEDER SWITCHBOARD OPERATOR [facility] Albumin 3.4 3.4 - 5.0 g/dL 07/28/2021 10:12 AM FEEDER SWITCHBOARD OPERATOR [facility] Bilirubin Total 0.5 0.2 - 1.3 mg/dL 07/28/2021 10:12 AM FEEDER SWITCHBOARD OPERATOR [facility] GFR Estimate >90 >60 mL/min/1.7 3m2 07/28/2021 10:12 AM FEEDER SWITCHBOARD OPERATOR [facility] Comment:As of March 26, 2021, eGFR is calculated by the CKD-EPI creatinine equation, without race adjustment. eGFR can be influenced by muscle mass, exercise, and diet. The reported eGFR is an estimation only and is only applicable if the renal function is stable. Blood STRUCTURE OF RIGHT UPPER LIMB / Unknown Venipuncture / Unknown 07/27/2021 8:57 AM FEEDER SWITCHBOARD OPERATOR 07/27/2021 8:57 AM FEEDER SWITCHBOARD OPERATOR Denise Woodson APRN APPLICATIONS ANALYST LAB - BLOOD ORDERABLES OX LABORATORY [facility] [address] Lab (no room number, 1st floor of clinic) [place] [address], [facility] [phone] from Last 3 Months or Most Recently Relevant to Health Maintenance Care Teams Retail Seasonal Specialist Relationship Specialty Start Date End Date Yung Madrigal MD RETIRED PCP - Orthopaedics Orthopedics 08/26/12 Winston Villatoro OD [facility] [place] [address] [facility] [address] [place] [address] PCP - Ophthalmology Ophthalmology 02/11/13 Denise Woodson Ra, APRN APPLICATIONS ANALYST [address] [place] [address] PCP - General Family Practice 09/21/20 Denise Woodson Ra, APRN APPLICATIONS ANALYST [address] [place] [address] Assigned PCP 07/17/20
--- OUTSIDE RECORDS SUMMARY | 2024-01-07 17:06 | XMS_ITS | Encounter Summary ---
Author Name Unknown Organization [place] Address [address] [place] [address] Care Team Providers Care Blogs Manager Name Role Phone Yung Madrigal MD Unavailable Unavailable Winston Villatoro OD Unavailable [phone] Serum, Clara Garland MD Primary Care Provider Serum, Clara Garland MD Unavailable [phone] Denise Woodson Ra, APRN CPC CODER Unavailable [phone] Denise Woodson Ra, APRN CPC CODER Primary Care Provid er Reason for Visit * Reason Onset Date Comments LAB REQUEST 06/16/2019 Encounter Details Date Type Department Care Team (Late st Contact Info) Description 06/16/2019 [facility] Medical Advice [address] [place] [address] Serum, Clara Garland MD [address] [place] [address] LAB REQUEST Social History Tobacco [...] encounter Miscellaneous Notes * Telephone Encounter - eGnet Holcomb RN - 06/16/2019 4:17 PM CDT See Nightprot message regarding yesterday's appointment. Patient requesting to check TSH and antibodies for pt reported possible yonas's. Pended TSH for provider review. documented in this encounter Plan of Treatment Upcoming Encounters Date Type Department Care Team (Late st Contact Info) Description 01/15/2024 3:30 PM CDT Office Visit [facility] [address] [place] [address] Jacque Alexis APRN CPC CODER [address] [place] [address] documented as of this encounter Results * Follicle stimulating hormone (06/22/2019 3:36 PM CDT) FSH 9.5 IU/L 06/23/2019 2:32 PM CDT [facility] Comment: FSH Reference Range Female: Follicular ?2.5-10.2 ?Mid-cycle ? 3.4-33.4 ?Luteal ?1.5-9.1 ?Postmenopausal ??23.0-116.3 Blood specimen (specimen) 06/22/2019 3:36 PM CDT 06/22/2019 3:37 PM CDT Clara Cornell MD LAB - BLOOD ORD ERABLES [facility] [address] [place] [address] * TSH with free T4 reflex FUTURE anytime (06/22/2019 3:36 PM CDT) TSH 3.30 0.40 - 4.00 mU/L 06/23/2019 3:12 PM CDT [facility] Blood specimen (specimen) 06/22/2019 3:36 PM CDT 06/22/2019 3:37 PM CDT Clara Cornell MD LAB - BLOOD ORD ERABLES [facility] [address] [place] [address] documented in this encounter Visit Diagnoses Diagnosis Anti-TPO antibodies present- Primary Other and unspecified nonspecific immunological findings Excessive sweating Generalized hyperhidrosis documented in this encounter Additional Health Concerns Assessment Noted Time PHQ-9 Depression Total Score: 0 06/15/20 19 7:09 PM CDT documented as of this encounter Care Teams Blogs Manager Relationship Specialty Start Date End Date Yung Madrigal MD RETIRED PCP - Orthopaedics Orthopedics 08/26/12 Winston Villatoro OD [facility] [place] [address] [place] [address] PCP - Ophthalmology Ophthalmology 02/11/13 Clara Cornell MD [facility] [place] [address] [place] [address] PCP - General Internal Medicine 02/07/17 09/20/20 Denise Woodson Ra, APRN CPC CODER [address] [place] [address] PCP - General Family Practice 09/21/20 Clara Cornell MD [address] [place] [address] Assigned PCP 01/17/17 07/16/20 Denise Woodson Ra, APRN CPC CODER [address] [place] [address] Assigned PCP 07/17/20 documented as of this encounter
--- OUTSIDE RECORDS SUMMARY | 2024-01-07 17:06 | XMS_ITS | Encounter Summary ---
Author Name Unknown Organization [place] Address [address] [place] [address]. [place] [address] Care Team Providers Care Camp Nurse Name Role Phone Yung Madrigal MD Unavailable Unavailable Winston Villatoro OD Unavailable Denise Woodson Ra, APRN DIRECTOR EMPLOYEE COMMUNICATIONS Unavailable Denise Woodson Ra, APRN DIRECTOR EMPLOYEE COMMUNICATIONS Primary Care Provid er Reason for Visit * Reason Onset Date Comments Medication Request 04/20/2021 escitalopram (LEXAPRO) 10 MG tablet Encounter Details Date Type Department Care Team (Late st Contact Info) Description 04/20/2021 MyC Medical Advice [facility] [address] [place] [address] Denise Woodson Ra, APRN DIRECTOR EMPLOYEE COMMUNICATIONS [address] [place] [address] Medication Request (escitalopram (LEXAPRO)... Social [...] wait until Denise returns on Saturday. 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, recurrent episode, mild documented in this encounter Additional Health Concerns Assessment Noted Time PHQ-9 Depression Total Score: 0 01/05/20 21 9:31 AM CDT documented as of this encounter Care Teams Camp Nurse Relationship Specialty Start Date End Date Yung Madrigal MD RETIRED PCP - Orthopaedics Orthopedics 08/26/12 Winston Villatoro OD [facility] [place] [address] [facility] [address] [place] [address] PCP - Ophthalmology Ophthalmology 02/11/13 Denise Woodson Ra, APRN DIRECTOR EMPLOYEE COMMUNICATIONS [address] [place] [address] PCP - General Family Practice 09/21/20 Denise Woodson Ra, APRN DIRECTOR EMPLOYEE COMMUNICATIONS [address] [place] [address] Assigned PCP 07/17/20 documented as of this encounter
--- OUTSIDE RECORDS SUMMARY | 2024-01-07 17:06 | XMS_ITS | Encounter Summary ---
Author Name Unknown Organization [place] Address [address] [place] [address] Care Team Providers Care Geophysical Engineer Name Role Phone Yung Madrigal MD Unavailable Unavailable Winston Villatoro OD Unavailable [phone] Denise Woodson Ra, APRN MOS[place]GIACH Unavailable + [phone] Denise Woodson Ra, APRN MOSHGIACH Primary Care Provid er Encounter Details Date Type Department Care Team (Late Contact Info) Description 01/22/[address] [facility] [address] [place] [address] Angelo Escobar Social History Tobacco [...] 01/15/2024 3:30 PM CDT [facility] [address] [place] [address] Jacque Alexis APRN [place] [address] [place] [address] documented as of this encounter Visit Diagnoses Not on filedocumented in this encounter Additional Health Concerns Assessment Noted Time PHQ-9 Depression Total Score: 0 06/23/20 21 4:11 PM CDT documented as of this encounter Care Teams Geophysical Engineer Relationship Specialty Start Date End Date Yung Madrigal MD RETIRED PCP - Orthopaedics Orthopedics 08/26/12 Winston Villatoro OD [facility] [place] [address] [facility] [address] [place] [address] PCP - Ophthalmology Ophthalmology 02/11/13 Denise Woodson Ra, APRN [place] [address] [facility] [place] [address] PCP - General Family Practice 09/21/20 Denise Woodson Ra, APRN [place] [address] [facility] [place] [address] Assigned PCP 07/17/20 documented as of this encounter
--- OUTSIDE RECORDS SUMMARY | 2024-01-07 17:06 | XMS_ITS | Encounter Summary ---
Author Name Unknown Organization [place] Address [address] [place] [address] Care Team Providers Care Switchboard Receptionist Name Role Phone Timmy Perez MD Unavailable Unavailable Yung Madrigal MD Unavailable Unavailable Frw, None Primary Care Provider Unavailrigoberto e Winston Villatoro OD Unavailable [phone] Apple Sykes MD Primary Care Provider [phone] Westley Bates MD Unavailable [phone] GeorginaAlessandra Gómez APRN CONSTRUCTION MANAGER Primary Car e Provider Serum, Clara Garland MD Primary Care Provider Serum, Clara Garland MD Unavailable [phone] Serum, Clara Garland MD Unavailable [phone] Denise Woodson Ra, APRN CONSTRUCTION MANAGER Unavailable + [phone] Denise Woodson Ra, APRN CONSTRUCTION MANAGER Primary Care Provid er Encounter Details Date Type Department Care Team (Late st Contact Info) Description 01/30/2006 [facility] [place] Inpatient Dept [address] [place] [phone] Frw, Inpatient Provider Social History Tobacco Use [...] pain. PROCEDURE: TOTAL VAGINAL HYSTERECTOMY. SURGEON: Chris COLLAR FELLER: Radha ANESTHESIA: Spinal ESTIMATED BLOOD LOSS: 100 [...] Description 01/15/2024 3:30 PM CDT [facility] [address] [place] [address] Jacque Alexis APRN CONSTRUCTION MANAGER [address] [place] [address] documented as of this encounter Visit Diagnoses Not on filedocumented in this encounter Care Teams Switchboard Receptionist Relationship Specialty Start Date End Date Timmy Perez MD PCP - Obstetrics/Gynecology 03/02/08 08/07/15 Yung Madrigal MD RETIRED PCP - Orthopaedics Orthopedics 08/26/12 Frw, None PCP - General Family Practice 08/26/12 05/03/13 Winston Villatoro, OD [facility] [place] [address] [place] [address] PCP - Ophthalmology Ophthalmology 02/11/13 Apple Sykes MD [facility] [place] [address] [place] [address] PCP - General Family Practice 05/04/13 10/25/16 Westley Bates MD XXX RETIRED [place] [address] [place] [address] PCP - ENT Otolaryngology 05/14/13 07/28/18 Alessandra Cabrales APRN CONSTRUCTION MANAGER [address] [facility] [place] [address] PCP - General Nurse Practitioner 10/26/16 02/06/17 Clara Cornell MD [address] [facility] [place] [address] PCP - General Internal Medicine 02/07/17 09/20/20 Clara Cornell MD [address] [place] [address] PCP - Assigned PCP 01/17/17 11/18/18 Denise Woodson Ra, APRN CONSTRUCTION MANAGER [address] [place] [address] PCP - General Family Practice 09/21/20 Clara Cornell MD [address] [place] [address] Assigned PCP 01/17/17 07/16/20 Denise Woodson Ra, APRN CONSTRUCTION MANAGER [address] [place] [address] Assigned PCP 07/17/20 documented as of this encounter
--- OUTSIDE RECORDS SUMMARY | 2024-01-07 17:06 | XMS_ITS | Encounter Summary ---
Author Name Unknown Organization [place] Address [address] [place] [address]. [place] [address] Care Team Providers Care Varnisher Apprentice Name Role Phone Yung Madrigal MD Unavailable Unavailable Winston Villatoro OD Unavailable Denise Woodson Ra, APRN MANAGER LOCAL Unavailable Denise Woodson Ra, APRN MANAGER LOCAL Primary Care Provid er Encounter Details Date Type Department Care Team (Late st Contact Info) Description 06/13/2021 [facility] Medical Advice [facility] [address] [place] [address] Denise Woodson Ra, APRN MANAGER LOCAL [address] [place] [address] Insomnia, unspecified type Social History [...] a refill on file. Prescription approved per [facility] protocol. Mary Caraballo RN on 06/13/2021 at 5:18 PM documented in this encounter Plan of Treatment Upcoming Encounters Date Type Department Care Team (Late st Contact Info) Description 01/15/2024 3:30 PM CDT Office Visit [facility] [address] [place] [address] Jacque Alexis APRN MANAGER LOCAL [address] [place] [address] documented as of this encounter Visit Diagnoses Diagnosis Insomnia, unspecified type documented in this encounter Additional Health Concerns Assessment Noted Time PHQ-9 Depression Total Score: 0 01/05/20 21 9:31 AM CDT documented as of this encounter Care Teams Varnisher Apprentice Relationship Specialty Start Date End Date Yung Madrigal MD RETIRED PCP - Orthopaedics Orthopedics 08/26/12 Winston Villatoro OD [facility] [place] [address] [place] [address] PCP - Ophthalmology Ophthalmology 02/11/13 Denise Woodson Ra, APRN MANAGER LOCAL [address] [place] [address] PCP - General Family Practice 09/21/20 Denise Woodson Ra, APRN MANAGER LOCAL [address] [place] [address] Assigned PCP 07/17/20 documented as of this encounter
--- OUTSIDE RECORDS SUMMARY | 2024-01-07 17:06 | XMS_ITS | Encounter Summary ---
Author Name Unknown Organization [place] Address [address] [place] [address] Care Team Providers Care Senior Php Software Developer Name Role Phone Timmy Perez MD Unavailable Unavailable Yung Madrigal MD Unavailable Unavailable Frw, None Primary Care Provider Unavailabl e Winston Villatoro OD Unavailable [phone] Apple Sykes MD Primary Care Provider [phone] Westley Bates MD Unavailable [phone] Alessandra Cabrales APRN FAMILY PSYCHOLOGIST Primary Car e Provider Serum, Clara Garland MD Primary Care Provider Serum, Clara Garland MD Unavailable [phone] Serum, Clara Garland MD Unavailable [phone] Denise Woodson Ra, APRN FAMILY PSYCHOLOGIST Unavailable [phone] Denise Woodson Ra, APRN FAMILY PSYCHOLOGIST Primary Care Provid er Encounter Details Date Type Department Care Team (Late st Contact Info) Description 01/31/2006 [facility] [place] CIDER PRESS OPERATOR [address] [place] [phone] Timmy Perez MD Social History Tobacco Use [...] Description 01/15/2024 3:30 PM CDT Office Visit [facility] [address] [place] [address] Jacque Alexis APRN FAMILY PSYCHOLOGIST [address] [place] [address] documented as of this encounter Visit Diagnoses Not on filedocumented in this encounter Care Teams Senior Php Software Developer Relationship Specialty Start Date End Date Timmy Perez MD PCP - Obstetrics/Gynecology 03/02/08 08/07/15 Yung Madrigal MD RETIRED PCP - Orthopaedics Orthopedics 08/26/12 Frw, None PCP - General Family Practice 08/26/12 05/03/[address] [facility] [place] [address] [place] [address] PCP - Ophthalmology Ophthalmology 02/11/[address] [facility] [place] [address] [place] [address] PCP - General Family Practice 05/04/13 10/25/16 Westley Bates MD XXX RETIRED [place] [address] [facility] [address] [place] [address] PCP - ENT Otolaryngology 05/14/13 07/28/18 Alessandra Cabrales APRN FAMILY PSYCHOLOGIST [address] [facility] [place] [address] PCP - General Nurse Practitioner 10/26/16 02/06/17 Clara Cornell MD [address] [facility] [place] [address] PCP - General Internal Medicine 02/07/17 09/20/20 Clara Cornell MD [address] [place] [address] PCP - Assigned PCP 01/17/17 11/18/18 Denise Woodson Ra, APRN FAMILY PSYCHOLOGIST [address] [place] [address] PCP - General Family Practice 09/21/20 Clara Cornell MD [address] [place] [address] Assigned PCP 01/17/17 07/16/20 Denise Woodson Ra, APRN FAMILY PSYCHOLOGIST [address] [place] [address] Assigned PCP 07/17/20 documented as of this encounter
--- OUTSIDE RECORDS SUMMARY | 2024-01-07 17:06 | XMS_ITS | Encounter Summary ---
Author Name Unknown Organization [place] Address [address] [place] [address]. [place] [address] Care Team Providers Care Flamer Sealer Name Role Phone Yung Madrigal MD Unavailable Unavailable Winston Villatoro OD Unavailable Denise Woodson Ra, APRN INSURANCE SALESPERSON Unavailable Denise Woodson Ra, APRN INSURANCE SALESPERSON Primary Care Provid er Reason for Visit * Reason Onset Date Comments MyChart Communication 06/08/2021 Abdominal pain Encounter Details Date Type Department Care Team (Late Contact Info) Description 06/08/2021 MyC Medical Advice [facility] [place] [address] [place] [address] Denise Woodson Ra, APRN INSURANCE SALESPERSON [address] [place] [address] MyChart Communication (Abdominal pain) Social [...] Upcoming Encounters Date Type Department Care Team ([facility] Contact Info) Description 01/15/2024 3:30 PM CDT Office Visit [facility] [place] [address] [place] [address] Jacque Alexis APRN INSURANCE SALESPERSON [address] [place] [address] documented as of this encounter Visit Diagnoses Not on filedocumented in this encounter Additional Health Concerns Assessment Noted Time PHQ-9 Depression Total Score: 0 01/05/20 21 9:31 AM CDT documented as of this encounter Care Teams Flamer Sealer Relationship Specialty Start Date End Date Yung Madrigal MD RETIRED PCP - Orthopaedics Orthopedics 08/26/12 Winston Villatoro OD [facility] [place] [address] [facility] [address] [place] [address] PCP - Ophthalmology Ophthalmology 02/11/13 Denise Woodson Ra, APRN INSURANCE SALESPERSON [address] [place] [address] PCP - General Family Practice 09/21/20 Denise Woodson Ra, APRN INSURANCE SALESPERSON [address] [place] [address] Assigned PCP 07/17/20 documented as of this encounter
[2024-01-07 17:10] LABS: Basophils Absolute Auto 0.03 K/uL (0.00-0.30); Basophils Percent Auto 0.3 % (0.0-3.0); Eosinophils Absolute Auto 0.31 K/uL (0.00-0.50); Hematocrit 45.6 % (33.0-51.0); Hemoglobin* 15.3 gm/dL (12.0-16.0); Immature Granulocytes Abs Auto 0.01 K/uL (0.00-0.30); Immature Granulocytes Pct Auto 0.1 %; Lymphocytes Percent Auto 19.6 % (20-44); Mean Corpuscular HGB Conc 34 gm/dL (32-36); Mean Corpuscular Hemoglobin 30 pg (26-34); Mean Corpuscular Volume 90 fL (80-100); Monocytes Percent Auto 5.7 % (0.0-11.0); Neutrophils Absolute Auto 7.29 K/uL (1.7-7.0); Neutrophils Percent Auto 71.3 % (42.0-72.0); Platelet Count* 208 K/uL (140-440); RDW Coefficient of Variation % 11.9 % (11.5-15.5); Red Blood Count 5.06 m/uL (4.00-5.20); White Blood Count* 10.22 K/uL (4.50-11.00)
[2024-01-07 17:14] LABS: Slide Review Reflex No
[2024-01-07 17:22] LABS: Chloride* 103 mmol/L (96-114); Potassium* 3.9 mmol/L (3.6-5.1); Sodium* 137 mmol/L (135-149)
[2024-01-07 17:25] LABS: Creatinine* 0.7 mg/dL (0.5-1.5); Est. Creatinine Clearance* 100.22; Estimated Glomerular Filt Rate 107 ml/min
[2024-01-07 17:26] LABS: Blood Urea Nitrogen* 13 mg/dL (5-24); Calcium* 9.3 mg/dL (8.4-10.6)
[2024-01-07 17:29] LABS: C Reactive Protein* 0.7 mg/dL (0.5-1.0)
[2024-01-07 17:33] VITALS: PULSE 65; O2SAT 100
[2024-01-07 17:59] LABS: Anion Gap 6 mEq/L (7-15); Carbon Dioxide* 28 mmol/L (20-32); Glucose* 93 mg/dL (60-115)
[2024-01-07 18:15] LABS: Erythrocyte SedimentationRate* 16 mm/hr (2-20)
== END 2024-01-07 17:54 | disposition home or self-care (01) ==
PROVIDERS: Emergency Provider Family Medicine; PCP Family Medicine
DX: G43.B0 Ophthalmoplegic migraine, not intractable (principal)
CPT/HCPCS: 36415; 70450; 80048; 85025; 85651; 86140; 96374; 99284; J2060; J7030

== ENCOUNTER 2024-01-10 19:57 | Emergency (ER) | payer OTHER, SELFPAY ==
[2024-01-10 20:04] VITALS: BP 148/92; PULSE 83; RESP 18; TEMP 37.1; O2SAT 98; BMI 31.9
--- NOTE | 2024-01-10 20:14 | ED_ITS ---
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 She for the angiogram had an arterial punctue in the right wrist. Patient now is having discomfort in the right shoulder. She has no swelling of the right arm. No shortness of breath no bruising or ecchymosis no nausea no vomiting. She usually had some weakness after the procedure but that has resolved. She is now left with very tender right shoulder but no swelling or signs of blood clot. No other significant symptoms are noted. Related Data Home Medications Medication Instructions Recorded Confirmed fluticasone furoate 200 1 inh inhalation Q24H 07/03/22 12/31/23 mcg-vilanterol 25 mcg/dose inhalation powder (Breo Ellipta) albuterol sulfate 90 mcg/actuation 2 puff inhalation Q6H PRN 08/01/22 12/31/23 aerosol inhaler magnesium 250 mg tablet 250 mg PO QDAY 08/02/22 12/31/23 trazodone 100 mg tablet 100 mg PO QDAY sleep 08/02/22 12/31/23 cetirizine 10 mg tablet (Zyrtec) 10 mg PO QDAY PRN 10/08/23 12/31/23 hydroxyzine HCl 25 mg tablet 25 mg PO BID PRN 12/31/23 12/31/23 Previous Rx's Medication Instructions Recorded ketorolac 10 mg tablet 10 mg PO Q6H PRN pain 5 days #20 07/03/22 tabs albuterol sulfate 2.5 mg/3 mL 2.5 mg (3 mL) inhalation Q4-6H PRN 09/23/22 (0.083 %) solution for nebulization #75 mL ipratropium 0.5 mg-albuterol 3 mg 3 ml inhalation Q6H PRN #90 mL 09/26/22 (2.5 mg base)/3 mL nebulization soln Allergies Allergy/AdvReac Type Severity Reaction Status Date / Time bupropion Allergy Intermediate Diarrhea Verified 01/04/24 17:18 codeine Allergy Intermediate epigastric Verified 01/04/24 17:18 pain erythromycin base Allergy Intermediate stomach Verified 01/04/24 17:18 upset, diarrhea Review of Systems Status of ROS: Reports: 10 or more systems reviewed and unremarkable except as noted in History and below [facility] Medical History Asthma ?J45.909 - Unspecified asthma, uncomplicated (ICD-10) History of blood transfusion (1994) ?Z92.89 - Personal history of other medical treatment (ICD-10) History of vitamin D deficiency ?Z86.39 - Personal history of other endocrine, nutritional and metabolic disease (ICD-10) Anxiety and depression ?F41.9 - Anxiety disorder, unspecified (ICD-10) ?F32.A - Depression, unspecified (ICD-10) Fibromyalgia ?M79.7 - Fibromyalgia (ICD-10) Mild persistent asthma ?J45.30 - Mild persistent asthma, uncomplicated (ICD-10) H/O bronchopulmonary dysplasia ?Z87.09 - Personal history of other diseases of the respiratory system (ICD- 10) Stage 1 chronic kidney disease (11/16/20) ?N18.1 - Chronic kidney disease, stage 1 (ICD-10) Simple renal cyst (10/2020) ?N28.1 - Cyst of kidney, acquired (ICD-10) 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, unspecified (ICD-10) Asthma ?J45.909 - Unspecified asthma, uncomplicated (ICD-10) Surgical History History of laparoscopy ?Z98.890 - Other specified postprocedural states (ICD-10) S/P dilation and curettage (1994) ?Z98.890 - Other specified postprocedural states (ICD-10) H/O tubal ligation ?Z98.51 - Tubal ligation status (ICD-10) Status post excision of lipoma (2011) ?Z98.890 - Other specified postprocedural states (ICD-10) ?Z86.018 - Personal history of other benign neoplasm (ICD-10) History of medial meniscus repair of left knee (08/04/13) ?Z98.890 - Other specified postprocedural states (ICD-10) History of laparoscopic cholecystectomy (09/29/20) ?Z90.49 - Acquired absence of other specified parts of digestive tract (ICD- 10) History of hysterectomy for benign disease (2005) ?Z90.710 - Acquired absence of both cervix and uterus (ICD-10) History of catheter-based closure of atrial septal defect (06/2006) ?Z87.74 - Personal history of (corrected) congenital malformations of heart and circulatory system (ICD-10) Family History Maternal Grandmother Stroke Paternal Grandfather Diabetes Daughter Depression Social History Narrative: She recently moved to [place]. 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 She has a college education She exercises 5 days a week with walking in treadmill 2M She does not smoke She does not drink alcohol or use recreational drugs Smoking Status: Never smoker Do you use any of these nicotine containing products: None Second hand tobacco smoke exposure: No How often do you have a drink containing alcohol: monthly or less How often do you have six or more drinks on one occasion: Never AUDIT-C Alcohol total score: 1 Non-prescribed substance use: denies use Caffeine: Yes (coffee 1 cup/day) Little interest or pleasure in doing things: not at all Feeling down, depressed, or hopeless: not at all Are you using contraception or practicing any form of control: Yes (hysterectomy) Exam Narrative: Exam Narrative: EXAM GENERAL: Patient appears comfortable and well. EYES: No scleral icterus. ENT: Tympanic membranes and oropharynx normal. THYROID: no thyroid nodules or thyromegaly. LYMPH: No supraclavicular or cervical lymphadenopathy. SKIN: Visible skin seen during exam normal or with benign process only. EXT: No dependent lower extremity pedal edema. HEART: Regular rate and rhythm with no murmurs, rubs, or gallops. LUNGS: Clear to auscultation bilaterally with no crackles or wheezes. ABD: Soft, non tender, non distended. PSYCH: Good eye contact, speech is not pressured. Careful attention paid to the right shoulder no pain to palpation no palpable abnormalities no bruising or ecchymoses grossly normal range of motion arterial puncture site on the right wrist minimal ecchymoses no significant trauma. Const: Vital Signs, click to edit/add: Vital Signs - 24 hr 01/10/24 20:04 Temperature 98.8 F Pulse Rate [Pulse Oximeter] 83 Respiratory Rate 18 Blood Pressure [Ri ght Upper Arm] 148/92 H Pulse Oximetry 98 Oxygen Delivery Me thod Room Air Course Course ED Course: Patient seen and examined. Vital Signs Vital signs: Initial Vital Signs Temperature 98.8 F 01/10/24 20:04 Temperature Source Temporal Artery Scan 01/10/24 20:04 Pulse Rate 83 01/10/24 20:04 Respiratory Rate 18 01/10/24 20:04 Blood Pressure 148/92 H 01/10/24 20:04 Blood Pressure Mean 110 H 01/10/24 20:04 Blood Pressure Position Sitting 01/10/24 20:04 Pulse Oximetry 98 01/10/24 20:04 Oxygen Delivery Method Room Air 01/10/24 20:04 Vital Signs Temperature 98.8 F 01/10/24 20:04 Pulse Rate 83 01/10/24 20:04 Respiratory Rate 18 01/10/24 20:04 Blood Pressure 148/92 H 01/10/24 20:04 Pulse Oximetry 98 01/10/24 20:04 Oxygen Delivery Method Room Air 01/10/24 20:04 Temperature 98.8 F 01/10/24 20:04 Pulse Rate 83 01/10/24 20:04 Respiratory Rate 18 01/10/24 20:04 Blood Pressure 148/92 H 01/10/24 20:04 Pulse Oximetry 98 01/10/24 20:04 Oxygen Delivery Method Room Air 01/10/24 20:04 Medical Decision Making [facility] Narrative Medical decision making narrative: Patient is a 48-year-old woman who presents with pain in her right shoulder after cerebral angiogram. On my exam she has normal findings. She has normal vital signs. We did have a nice discussion about further imaging and we are bot h reluctant due to her history of radiation exposure recently. This time reassurance is offered she will report any change in symptoms at that time I would recommend CT of the chest with IV contrast. She does understand it she needs follow-up immediately if any problems develop although I do think this is musculoskeletal shoulder pain. Discharge Plan Discharge Instructions: Shoulder Pain (ED) Additional Instructions: Tylenol ice increased rang e of motion as tolerated follow-up with your doctor as needed. Activity Level: No Restrictions Discharge Diet: Regular Prescriptions: No Action cetirizine [Zyrtec] 10 mg tablet 10 mg PO QDAY PRN hydroxyzine HCl 25 mg tablet 25 mg PO BID PRN albuterol sulfate 90 mcg/actuation HFA aerosol inhaler 2 puff inhalation Q6H PRN magnesium 250 mg tablet 250 mg PO QDAY fluticasone furoate-vilanterol [Breo Ellipta] 200-25 mcg/dose blister with device 1 inh INHALATION Q24H Patient Comments: INHALE 1 PUFF BY MOUTH EVERY DAY ketorolac 10 mg tablet 10 mg PO Q6H PRN (Reason: pain) 5 Days Qty: 20 0RF Patient Comments: at least 2 weeks trazodone 100 mg tablet 100 mg PO QDAY albuterol sulfate 2.5 mg /3 mL (0.083 %) solution for nebulization 2.5 mg inhalation Q4-6H PRNQty: 75 0RF ipratropium-albuterol 0.5 mg-3 mg(2.5 mg base)/3 mL solution for nebulization 3 ml inhalation Q6H PRNQty: 90 0RF Follow Up/Referrals: Keira Irvin MD [Primary Care Provider] - Stand Alone Forms: [employer] Info Instructions
--- OUTSIDE RECORDS SUMMARY | 2024-01-10 20:19 | XMS_ITS | Continuity of Care Document ---
Author Name Unknown Organization [facility] Address [address] [address] [place] [address] Phone Care Team Providers Care Sales Associate Cashier Name Role Phone Unavailable Unavailable Unavailable Procedures Procedure Date Ugi Endo; Dx W/wo Collec Specm Advance Directives Directive Yes / No Effective Date File Name No Information Encounters Encounter Description Practice Location Reason(s) For Visit Diagnoses Date Provider Providers Copied on Encounter [facility], [address] [address], [place], [place], [id number], [place] tel:[phone] [facility] No Information 021 No Information [facility], [address] [address], [facility] [place], [id number], [place] tel:[phone] [facility] No Information 021 No Information [facility], [address] [address], [place], [place], [id number], [place] tel:[phone] No Information Unknown No Information Family History [...] Registry Payers Payer name Insurance type Covered libertarian ID Authoriza tion(s) No Information Social History [...]
--- OUTSIDE RECORDS SUMMARY | 2024-01-10 20:19 | XMS_ITS | Referral Summary ---
Author Name Unknown Organization [facility] Address [address] [place] [address] Care Team Providers Care Willow Machine Operator Name Role Phone Darius Shaw M.D. Primary Care Provider [phone] Source Comments Patient records contain information from all sites at [facility]. For routine questions regarding patient records, call [phone] during business hours, M-F 8:00 AM - 5:00 PM Central Time. Record requests for emergency care only can be directed to [phone] at any time.[facility] Allergies Active Allergy Reactions Criticality Noted [...] mouth at bedtime. 30 tablet 11 01/10/2023 Active buPROPion (Wellbutrin SR) 100 mg 12 hr tablet Take 1 tablet (100 mg total) by mouth 2 (two) times a day. 60 tablet 11 01/10/2023 Active fluticasone furoate-vilanteroL (Breo Ellipta) 200-25 mcg/act inhaler Inhale 1 puff daily. 180 each 3 01/10/2023 Active albuterol 90 mcg/actuation inhaler Inhale 2 puffs every 4 (four) hours as needed for wheezing. 8 g 11 01/10/2023 Active Active Problems Problem Noted Date Diagnosed [...] Filtration Rate Greater Than 90 11/16/2020 01/11/20 23 Asthma Moderate Persistent 06/15/2019 0 01/10/2023 Depression [...] week 01/10/2023 How often do you attend scientology or episcopalian serv ices? Never 01/10/2023 Do you belong to any clubs o r organizations such as scientology groups, unions, fraternal or athletic groups, or [...] Answer Date Recorded PHQ-2 Score 3 01/10/2023 [facility] [place] [facility] - Occupational Stress [...] place to sleep or slept in a [place] facility (including now)? No 01/10/2023 Depression Answer Date [...] on file Medical Devices Implanted Type Area Quality Control Industrial Engineer Device Identifier Shelf Expiration Date Model / Serial / Lot Mesh Or Patch Mesh or Patch Heart Description:Amplatzer Septal Occluder Asd Closure Device 34mm - Sanders [id number] Implanted:Qty: 1 on 06/20/2006 Septal Defect Occluder Device Other/Legacy - See Implant Description Description:Device Manufactu [facility]. Device Status Text - [id number]. Procedures Procedure Name Priority Date/Time Associated Diagnosis Comments BI BREAST SCREENING BILATERAL WITH TOMOSYNTHESIS RAD - Routine (most inpatients and all outpatients) 07/30/2023 2:38 PM [facility] Screening Mammogram Breast Cancer COLOGUARD Routine 10/28/2022 5:54 PM [facility] Screening Cancer Colon VBG & LYTES CG8+, POCT, B Routine 09/30/2022 10:38 AM [facility] EXTI LIPID PANEL REFLEX TO DIRECT LDL Routine 07/27/2021 8:57 AM [facility] from Last 3 Months or Most Recently Relevant to Health Maintenance Results * BI Breast Screening Bilateral with Tomosynthesis (07/30/2023 2:38 PM [facility]) Anatomical Region Laterality Modality Breast, Breast Imaging RST L OS, Breast Imaging ARZ LOS, Breast Imaging FLA LOS Bilateral Mammography 08/01/2023 12:2 8 PM [facility] Impressions 08/01/2023 12:33 PM [facility] Negative. RECOMMENDATION: ??Annual Screening Mammogram ASSESSMENT: ??BI-RADS: 1: Negative. Narrative 08/01/2023 12:33 PM [facility] EXAM: ??BI BREAST SCREENING BILATERAL WITH TOMOSYNTHESIS [...] ASSESSMENT: BI-RADS: 1: Negative. Darius Shaw M.D. [facility] BI PROCEDURES * Cologuard-Sent Out Lab (10/28/2022 5:54 PM [facility]) Result Negative Negative 11/03/2022 2:48 AM [facility] EXLI Comment: NEGATIVE TEST RESULT. A negative [...] (Yenny Adkins al, N Engl J Med 2014;370(14):0863-2417) The normal value (reference range) for this assay is negative. COLOGUARD RE-SCREENING RECOMMENDATION: Periodic colorectal cancer screening is an important part of preventive healthcare for asymptomatic individuals at average risk for colorectal cancer. ??Following a negative Cologuard result, the [place] [employer] Society and U.S. Multi-Society Task Force screening guidelines recommend a Cologuard re-screening interval of 3 years. References: [place] [employer] Guideline for Colorectal Cancer Screening: https://www.cancer.org/cancer/fipru-cthuxu-dbhdbv/detection- diagnosis-staging/acs-recommendations.html.; Ming MARTINEZ, Barbra CR, Erna SimsK, Colorectal Cancer Screening: Recommendations for Physicians and Patients from the U.S. Multi-Society Task Force on Colorectal Cancer Screening , Am J Gastroenterology 2017; 112:5989-0032. TEST DESCRIPTION: Composite algorithmic analysis of stool [...] (Yenny Adkins al, N Engl J Med 2014;370(14):8343-7387.) Cologuard may produce a false negative or false positive result (no colorectal cancer or precancerous polyp present at colonoscopy follow up). A negative Cologuard test result does not guarantee the absence of CRC or advanced adenoma (pre-cancer). The current Cologuard screening interval is every 3 years. ([place] [employer] Society and U.S. Multi-Society Task Force). Cologuard performance data in a 10,000 patient pivotal study using colonoscopy as the reference method can be accessed at the following location: www.LikeBright/results. Additional description of the Cologuard test process, warnings and precautions can be found at www.cologuard.com. Stool (Stool) 10/28/2022 5:5 4 PM [facility] 10/30/2022 1:57 PM [facility] Darius Shaw M.D. LAB BODY FLUIDS AND STOOLS ORDERABLES [employer] [address] [place] [id number] [facility] [employer] [address] [facility], [address] [place] [address] * Venous Blood Gas and Electrolytes CG8+, POCT (09/30/2022 10:38 AM [facility]) Sample Site, POCT Venstick 09/30/2022 10:54 AM [facility] PCSM Comment: ----ADDITIONAL INFORMATION---- Performed at the Point of Care pH, Venous, POCT, B 7.43 7.32 - 7.43 09/30/2022 10:54 AM [facility]CSM Comment: ----ADDITIONAL INFORMATION---- Performed at the Point of Care pCO2, Venous, POCT, B 46 41 - 51 mm Hg 09/30/2022 10:54 AM [facility]CSM Comment: ----ADDITIONAL INFORMATION---- Performed at the Point of Care pO2, Venous, POCT, B 25 Not Applicable mm Hg 09/30/2022 10:54 AM [facility] PCSM Comment: ----ADDITIONAL INFORMATION---- Performed at the Point of Care Base Excess, Venous, POCT, B 6 Not Applicable mmol/L 09/30/2022 10:54 AM [facility]CS[facility] Comment: ----ADDITIONAL INFORMATION---- Performed at the Point of Care HCO3, Venous, POCT, B 31 Not Applicable mmol/L 09/30/2022 10:54 AM [facility]CSM Comment: ----ADDITIONAL INFORMATION---- Performed at the Point of Care Sodium, POCT, B 140 135 - 145 mmol/L 09/30/2022 10:54 AM [facility]CS[facility] Comment: ----ADDITIONAL INFORMATION---- Performed at the Point of Care Potassium, POCT, B 4.3 3.6 - 5.2 mmol/L 09/30/2022 10:54 AM [facility]CSM Comment: ----ADDITIONAL INFORMATION---- Performed at the Point of Care Calcium, Ionized, POCT, B 5.20 4.65 - 5.30 mg/dL 09/30/2022 10:54 AM [facility]CSM Comment: ----ADDITIONAL INFORMATION---- Performed at the Point of Care Glucose, POCT, B 117 70 - 140 mg/dL 09/30/2022 10:54 AM [facility] Comment: ----ADDITIONAL INFORMATION---- Performed at the Point of Care Hematocrit, POCT, B 44.0 35.5 - 44.9 % 09/30/2022 10:54 AM [facility]CSM Comment: ----ADDITIONAL INFORMATION---- Performed at the Point of Care Blood 09/30/2022 10:3 8 AM [facility] 09/30/2022 10:54 AM [facility] Unknown Provider LAB POCT ORDERABLES - DEVICE POC [facility] [address] [place] [address], [facility] PCSM [facility] [address] [place] [address] from Last 3 Months or Most Recently Relevant to Health Maintenance Advance Directives For more information, please contact: [phone] * Full Code (Latest Code Status on File) Date Activated Date Inactivated Comments 09/30/2022 4:41 PM 10/02/2022 6:08 PM Question Answer Comments Full Code: Discussed Care Teams Willow Machine Operator Relationship Specialty Start Date End Date Darius Shaw M.D. [address] [id number] PCP - General Family Medicine 09/27/22
--- OUTSIDE RECORDS SUMMARY | 2024-01-10 20:19 | XMS_ITS | Clinical Summary ---
Author Name Unknown Organization [facility] Address [address] [place] [address] Care Team Providers Care Insulation Blower Name Role Phone Darius Shaw M.D. Primary Care Provider [phone] Source Comments Patient records contain information from all sites at [facility]. For routine questions regarding patient records, call [phone] during business hours, M-F 8:00 AM - 5:00 PM Central Time. Record requests for emergency care only can be directed to [phone] at any time.[facility] Allergies Active Allergy Reactions Criticality Noted [...] week 01/10/2023 How often do you attend quaker or buddhism serv ices? Never 01/10/2023 Do you belong to any clubs o r organizations such as quaker groups, unions, fraternal or athletic groups, or [...] Answer Date Recorded PHQ-2 Score 3 01/10/2023 [facility] - Occupational Stress [...] place to sleep or slept in a group home (including now)? No 01/10/2023 Depression Answer [...] history exists Asthma Control Test Questionnaire 01/11/2024 023, 04/06/2016 Mammogram 07/30/2024 07/30/2023, 04/16 (Performed elsewhere), [...] 11/07/2011, 10/04/2011 Medical Devices Implanted Type Area Cuff Turner Machine Operator Device Identifier Shelf Expiration Date Model / Serial / Lot Mesh Or Patch Mesh or Patch Heart Description:Amplatzer Septal Occluder Asd Closure Device 34mm - Sanders [id number] Implanted:Qty: 1 on 06/20/2006 Septal Defect Occluder Device Other/Legacy - See Implant Description Description:[facility]. Device Status Text - [id number]. Procedures Procedure Name Priority Date/Time Associated Diagnosis Comments BI BREAST SCREENING BILATERAL WITH TOMOSYNTHESIS RAD - Routine (most inpatients and all outpatients) 07/30/2023 2:38 PM LOGGING CREW FOREMAN Screening Mammogram Breast Cancer COLOGUARD Routine 10/28/2022 5:54 PM LOGGING CREW FOREMAN Screening Cancer Colon VBG & LYTES CG8+, POCT, B Routine 09/30/2022 10:38 AM LOGGING CREW FOREMAN EXTI LIPID PANEL REFLEX TO DIRECT LDL Routine 07/27/2021 8:57 AM LOGGING CREW FOREMAN from Last 3 Months or Most Recently Relevant to Health Maintenance Results * BI Breast Screening Bilateral with Tomosynthesis (07/30/2023 2:38 PM LOGGING CREW FOREMAN) Anatomical Region Laterality Modality Breast, Breast Imaging RST L OS, Breast Imaging ARZ LOS, Breast Imaging FLA LOS Bilateral Mammography 08/01/2023 12:2 8 PM LOGGING CREW FOREMAN Impressions 08/01/2023 12:33 PM LOGGING CREW FOREMAN Negative. RECOMMENDATION: ??Annual Screening Mammogram ASSESSMENT: ??BI-RADS: 1: Negative. Narrative 08/01/2023 12:33 PM LOGGING CREW FOREMAN EXAM: ??BI BREAST SCREENING BILATERAL WITH TOMOSYNTHESIS [...] ASSESSMENT: BI-RADS: 1: Negative. Darius Shaw M.D. [facility] BI PROCEDURES * Cologuard-Sent Out Lab (10/28/2022 5:54 PM LOGGING CREW FOREMAN) Result Negative Negative 11/03/2022 2:48 AM LOGGING CREW FOREMAN EXLI Comment: NEGATIVE TEST RESULT. A negative [...] Gates et al, N Engl J Med 2014;370(14):2493-1999) The normal value (reference range) for this assay is negative. COLOGUARD RE-SCREENING RECOMMENDATION: Periodic colorectal cancer screening is an important part of preventive healthcare for asymptomatic individuals at average risk for colorectal cancer. ??Following a negative Cologuard result, the [place] Cancer Society and U.S. Multi-Society Task Force screening guidelines recommend a Cologuard re-screening interval of 3 years. References: [place] Cancer Society Guideline for Colorectal Cancer Screening: https://www.cancer.org/cancer/pgqta-ctkrcb-cwiedt/detection- diagnosis-staging/acs-recommendations.html.; Ming MARTINEZ, Barbra TREJO, Erna SimsK, Colorectal Cancer Screening: Recommendations for Physicians and Patients from the U.S. Multi-Society Task Force on Colorectal Cancer Screening , Am J Gastroenterology 2017; 112:3855-7256. TEST DESCRIPTION: Composite algorithmic analysis of stool [...] (Yenny Adkins al, N Engl J Med 2014;370(14):3856-1335.) Cologuard may produce a false negative or false positive result (no colorectal cancer or precancerous polyp present at colonoscopy follow up). A negative Cologuard test result does not guarantee the absence of CRC or advanced adenoma (pre-cancer). The current Cologuard screening interval is every 3 years. ([place] Cancer Society and U.S. Multi-Society Task Force). Cologuard performance data in a 10,000 patient pivotal study using colonoscopy as the reference method can be accessed at the following location: www.Mark43/results. Additional description of the Cologuard test process, warnings and precautions can be found at www.ColibríogMy Damn Channelrd.Enernetics. Stool (Stool) 10/28/2022 5:5 4 PM LOGGING CREW FOREMAN 10/30/2022 1:57 PM LOGGING CREW FOREMAN Darius Shaw M.D. LAB BODY FLUIDS AND STOOLS ORDERABLES [facility] [address] [place] [address] EXLI [facility] [address] [facility], [address] [place] [address] * Venous Blood Gas and Electrolytes CG8+, POCT (09/30/2022 10:38 AM LOGGING CREW FOREMAN) Sample Site, POCT Venstick 09/30/2022 10:54 AM LOGGING CREW FOREMAN PCSM Comment: ----ADDITIONAL INFORMATION---- Performed at the Point of Care pH, Venous, POCT, B 7.43 7.32 - 7.43 09/30/2022 10:54 AM LOGGING CREW FOREMAN PCSM Comment: ----ADDITIONAL INFORMATION---- Performed at the Point of Care pCO2, Venous, POCT, B 46 41 - 51 mm Hg 09/30/2022 10:54 AM LOGGING CREW FOREMAN PCSM Comment: ----ADDITIONAL INFORMATION---- Performed at the Point of Care pO2, Venous, POCT, B 25 Not Applicable mm Hg 09/30/2022 10:54 AM LOGGING CREW FOREMAN PCSM Comment: ----ADDITIONAL INFORMATION---- Performed at the Point of Care Base Excess, Venous, POCT, B 6 Not Applicable mmol/L 09/30/2022 10:54 AM LOGGING CREW FOREMAN PCSM Comment: ----ADDITIONAL INFORMATION---- Performed at the Point of Care HCO3, Venous, POCT, B 31 Not Applicable mmol/L 09/30/2022 10:54 AM LOGGING CREW FOREMAN PCSM Comment: ----ADDITIONAL INFORMATION---- Performed at the Point of Care Sodium, POCT, B 140 135 - 145 mmol/L 09/30/2022 10:54 AM LOGGING CREW FOREMAN PCSM Comment: ----ADDITIONAL INFORMATION---- Performed at the Point of Care Potassium, POCT, B 4.3 3.6 - 5.2 mmol/L 09/30/2022 10:54 AM LOGGING CREW FOREMAN PCSM Comment: ----ADDITIONAL INFORMATION---- Performed at the Point of Care Calcium, Ionized, POCT, B 5.20 4.65 - 5.30 mg/dL 09/30/2022 10:54 AM LOGGING CREW FOREMAN PCSM Comment: ----ADDITIONAL INFORMATION---- Performed at the Point of Care Glucose, POCT, B 117 70 - 140 mg/dL 09/30/2022 10:54 AM LOGGING CREW FOREMAN PCSM Comment: ----ADDITIONAL INFORMATION---- Performed at the Point of Care Hematocrit, POCT, B 44.0 35.5 - 44.9 % 09/30/2022 10:54 AM LOGGING CREW FOREMAN PCSM Comment: ----ADDITIONAL INFORMATION---- Performed at the Point of Care Blood 09/30/2022 10:3 8 AM LOGGING CREW FOREMAN 09/30/2022 10:54 AM LOGGING CREW FOREMAN Unknown Provider LAB POCT ORDERABLES - DEVICE POC RST [facility] [address] [place] [address], [facility] [address] [place] [address] from Last 3 Months or Most Recently Relevant to Health Maintenance Advance Directives For more information, please contact: [phone] * Full Code (Latest Code Status on File) Date Activated Date Inactivated Comments 09/30/2022 4:41 PM 10/02/2022 6:08 PM Question Answer Comments Full Code: Discussed Care Teams Insulation Blower Relationship Specialty Start Date End Date Darius Shaw M.D. [address] [place] [phone] PCP - General Family Medicine 09/27/22
--- OUTSIDE RECORDS SUMMARY | 2024-01-10 20:20 | XMS_ITS | Encounter Summary ---
Author Name Unknown Organization [facility] Address [address] [place] [address] Care Team Providers Care Social Professionals Name Role Phone Yung Madrigal MD Unavailable Unavailable Winston Villatoro OD Unavailable [phone] Denise Woodson Ra, APRN GAS DISPENSER Unavailable + [phone] Denise Woodson Ra, APRN GAS DISPENSER Primary Care Provid er Encounter Details Date Type Department Care Team (Late Contact Info) Description 01/22/2022 MyC Medical Advice [facility] [address] [place] [address] Angelo Escobar Social History Tobacco [...] 3:30 PM CDT Office Visit [facility] [address] [place] [address] Jacque Alexis APRN GAS DISPENSER [address] [place] [address] documented as of this encounter Visit Diagnoses Not on filedocumented in this encounter Additional Health Concerns Assessment Noted Time PHQ-9 Depression Total Score: 0 06/23/20 21 4:11 PM CDT documented as of this encounter Care Teams Social Professionals Relationship Specialty Start Date End Date Yung Madrigal MD RETIRED PCP - Orthopaedics Orthopedics 08/26/12 Winston Villatoro OD [facility] [place] [address] [facility] [address] [place] [address] PCP - Ophthalmology Ophthalmology 02/11/13 Denise Woodson Ra, APRN GAS DISPENSER [address] [facility] [address] PCP - General Family Practice 09/21/20 Denise Woodson Ra, APRN GAS DISPENSER [address] [facility] [place] [address] Assigned PCP 07/17/20 documented as of this encounter
--- OUTSIDE RECORDS SUMMARY | 2024-01-10 20:20 | XMS_ITS | Encounter Summary ---
Author Name Unknown Organization [facility] Address [address] [place] [address]. [place] [address] Care Team Providers Care Lab Associate Name Role Phone uYng Madrigal MD Unavailable Unavailable Winston Villatoro OD Unavailable [phone] Denise Woodson Ra, APRN HEAT TREATER APPRENTICE Unavailable Denise Woodson Ra, APRN HEAT TREATER APPRENTICE Primary Care Provid er Encounter Details Date Type Department Care Team (Late st Contact Info) Description 06/13/2021 [facility] Medical Advice [facility] [address] [place] [address] Denise Woodson Ra, APRN HEAT TREATER APPRENTICE [address] [place] [address] Insomnia, unspecified type Social History [...] a refill on file. Prescription approved per [facility] protocol. Mary Caraballo RN on 06/13/2021 at 5:18 PM documented in this encounter Plan of Treatment Upcoming Encounters Date Type Department Care Team (Late st Contact Info) Description 01/15/2024 3:30 PM CDT Office Visit [facility] [address] [place] [address] Jacque Alexis APRN HEAT TREATER APPRENTICE [address] [place] [address] documented as of this encounter Visit Diagnoses Diagnosis Insomnia, unspecified type documented in this encounter Additional Health Concerns Assessment Noted Time PHQ-9 Depression Total Score: 0 01/05/20 21 9:31 AM CDT documented as of this encounter Care Teams Lab Associate Relationship Specialty Start Date End Date Yung Madrigal MD RETIRED PCP - Orthopaedics Orthopedics 08/26/[address] [facility] [place] [address] [place] [address] PCP - Ophthalmology Ophthalmology 02/11/13 Denise Woodson Ra, APRN HEAT TREATER APPRENTICE [address] [place] [address] PCP - General Family Practice 09/21/20 Denise Woodson Ra, APRN HEAT TREATER APPRENTICE [address] [place] [address] Assigned PCP 07/17/20 documented as of this encounter
--- OUTSIDE RECORDS SUMMARY | 2024-01-10 20:20 | XMS_ITS | Encounter Summary ---
Author Name Unknown Organization [facility] Address [address] [place] [address] Care Team Providers Care Counter Cutter Name Role Phone Yung Madrigal MD Unavailable Unavailable Winston Villatoro OD Unavailable [phone] Serum, Clara Garland MD Primary Care Provider Serum, Clara Garland MD Unavailable [phone] Denise Woodson Ra, APRN SHINGLE PACKER Unavailable [phone]- [phone] Denise Woodson Ra, APRN SHINGLE PACKER Primary Care Provid er Encounter Details Date Type Department Care Team (Late st Contact Info) Description 06/16/2019 MyC Medical Advice [address] [place] [address] Serum, Clara Garland MD [address] [place] [address] Social History Tobacco Use Types [...] Description 01/15/2024 3:30 PM CDT Office Visit [address] [address] Jacque Alexis APRN SHINGLE PACKER [address] [place] [address] documented as of this encounter Visit Diagnoses Not on filedocumented in this encounter Additional Health Concerns Assessment Noted Time PHQ-9 Depression Total Score: 0 06/15/20 19 7:09 PM CDT documented as of this encounter Care Teams Counter Cutter Relationship Specialty Start Date End Date Yung Madrigal MD RETIRED PCP - Orthopaedics Orthopedics 08/26/12 Winston Villatoro OD [facility] [place] [address] [place] [address] PCP - Ophthalmology Ophthalmology 02/11/13 Clara Cornell MD [facility] [place] [address] [place] [address] PCP - General Internal Medicine 02/07/17 09/20/20 Denise Woodson Ra, APRN SHINGLE PACKER [address] [place] [address] PCP - General Family Practice 09/21/20 Clara Cornell MD [address] [place] [address] Assigned PCP 01/17/17 07/16/20 Denise Woodson Ra, APRN SHINGLE PACKER [address] [place] [address] Assigned PCP 07/17/20 documented as of this encounter
--- OUTSIDE RECORDS SUMMARY | 2024-01-10 20:20 | XMS_ITS | Referral Summary ---
Author Name Unknown Organization [facility] Address [address] [place] [address] Care Team Providers Care Meat Stuffer Name Role Phone Yung Madrigal MD Unavailable Unavailable Winston Villatoro OD Unavailable Denise Woodson Ra, APRN SLAB WORKER Unavailable [phone] Denise Woodson Ra, APRN SLAB WORKER Primary Care Provid er Allergies Active Allergy [...] (FLONASE) 50 MCG/ACT nasal sprayIndications:Chr onic rhinitis [place] 2 sprays into both nostrils daily 16 [...] Comments Blood Pressure 108/68 07/27/2021 8:28 AM INFORMATION AND DATA ARCHITECT ANALYST Pulse 68 07/27/2021 8:28 AM INFORMATION AND DATA ARCHITECT ANALYST Temperature 36.9 ??C (98.4 ??F) 07/27/2021 8:28 AM CS T Respiratory Rate 12 07/27/2021 8:28 AM INFORMATION AND DATA ARCHITECT ANALYST Oxygen Saturation 97% 07/27/2021 8:28 AM INFORMATION AND DATA ARCHITECT ANALYST Inhaled Oxygen Concentration - - Weight 99.3 kg (219 lb) 07/27/2021 8:28 AM INFORMATION AND DATA ARCHITECT ANALYST Height 174.6 cm (5' 8.75) 02/08/2021 10:22 AM C DT Body Mass Index 32.58 02/08/2021 10:22 AM CDT Plan of Treatment Upcoming Encounters Date Type Department Care Team (Late st Contact Info) Description 01/15/2024 3:30 PM CDT [facility] [address] [place] [address] Jacque Alexis, BARRERA SLAB WORKER [address] [place], [place] [id number] Procedures Procedure Name Priority Date/Time Associated Diagnosis Comments MA SCREENING BILATERAL W/ MAT Routine 04/25/2022 5:03 PM CDT Visit for screening mammogram COMPREHENSIVE METABOLIC PANEL Routine 07/27/2021 8:57 AM INFORMATION AND DATA ARCHITECT ANALYST Routine general medical examination at a [facility] CARDIOVASCULAR SCREENING; LDL GOAL LESS THAN 160 LIPID REFLEX TO DIRECT LDL PANEL Routine 07/27/2021 8:57 AM INFORMATION AND DATA ARCHITECT ANALYST CARDIOVASCULAR SCREENING; LDL GOAL LESS THAN 160 [...] patient. JEVON HOWELL MD Denise Woodson APRN SLAB WORKER IMG MAMMOGRA PHY ORDERABLES * (ABNORMAL) Lipid panel reflex to direct LDL Fasting (07/27/2021 8:57 AM INFORMATION AND DATA ARCHITECT ANALYST) Cholesterol 202(H) <200 mg/dL 07/28/2021 10:12 AM INFORMATION AND DATA ARCHITECT ANALYST [facility] Triglycerides 91 <150 mg/dL 07/28/2021 10:12 AM INFORMATION AND DATA ARCHITECT ANALYST [facility] Direct Measure HDL 56 >=50 mg/dL 07/28/2021 10:12 AM INFORMATION AND DATA ARCHITECT ANALYST [facility] LDL Cholesterol Calculated 128(H) <=100 mg/dL 07/28/2021 10:12 AM INFORMATION AND DATA ARCHITECT ANALYST [facility] Non HDL Cholesterol 146(H) <130 mg/dL 07/28/2021 10:12 AM INFORMATION AND DATA ARCHITECT ANALYST [facility] Patient Fasting > 8hrs? Yes 07/28/2021 10:12 AM INFORMATION AND DATA ARCHITECT ANALYST [facility] Blood STRUCTURE OF RIGHT UPPER LIMB / Unknown Venipuncture / Unknown 07/27/2021 8:57 AM INFORMATION AND DATA ARCHITECT ANALYST 07/27/2021 8:57 AM INFORMATION AND DATA ARCHITECT ANALYST Narrative [facility] - 07/28/2021 10:12 AM INFORMATION AND DATA ARCHITECT ANALYST Cholesterol Desirable: ??<200 mg/dL Triglycerides Normal: ??Less [...] equal to 220 mg/dL Denise Woodson APRN SLAB WORKER LAB - BLOOD ORDERABLES OX LABORATORY [facility] [address] Lab (no room number, 1st floor of clinic) [place] [address], [facility] [phone] * Comprehensive metabolic panel (BMP + Alb, Alk Phos, ALT, AST, Total. Bili, TP) (07/27/2021 8:57 AM INFORMATION AND DATA ARCHITECT ANALYST) Sodium 139 133 - 144 mmol/L 07/28/2021 10:12 AM INFORMATION AND DATA ARCHITECT ANALYST [facility] Potassium 4.0 3.4 - 5.3 mmol/L 07/28/2021 10:12 AM INFORMATION AND DATA ARCHITECT ANALYST [facility] Chloride 105 94 - 109 mmol/L 07/28/2021 10:12 AM INFORMATION AND DATA ARCHITECT ANALYST [facility] Carbon Dioxide (CO2) 26 20 - 32 mmol/L 07/28/2021 10:12 AM INFORMATION AND DATA ARCHITECT ANALYST [facility] Anion Gap 8 3 - 14 mmol/L 07/28/2021 10:12 AM INFORMATION AND DATA ARCHITECT ANALYST [facility] Urea Nitrogen 20 7 - 30 mg/dL 07/28/2021 10:12 AM INFORMATION AND DATA ARCHITECT ANALYST [facility] Creatinine 0.74 0.52 - 1.04 mg/dL 07/28/2021 10:12 AM INFORMATION AND DATA ARCHITECT ANALYST [facility] Calcium 8.8 8.5 - 10.1 mg/dL 07/28/2021 10:12 AM INFORMATION AND DATA ARCHITECT ANALYST [facility] Glucose 95 70 - 99 mg/dL 07/28/2021 10:12 AM INFORMATION AND DATA ARCHITECT ANALYST [facility] Alkaline Phosphatase 67 40 - 150 U/L 07/28/2021 10:12 AM INFORMATION AND DATA ARCHITECT ANALYST [facility] AST 8 0 - 45 U/L 07/28/2021 10:12 AM INFORMATION AND DATA ARCHITECT ANALYST [facility] ALT 18 0 - 50 U/L 07/28/2021 10:12 AM INFORMATION AND DATA ARCHITECT ANALYST [facility] Protein Total 7.6 6.8 - 8.8 g/dL 07/28/2021 10:12 AM INFORMATION AND DATA ARCHITECT ANALYST [facility] Albumin 3.4 3.4 - 5.0 g/dL 07/28/2021 10:12 AM INFORMATION AND DATA ARCHITECT ANALYST [facility] Bilirubin Total 0.5 0.2 - 1.3 mg/dL 07/28/2021 10:12 AM INFORMATION AND DATA ARCHITECT ANALYST [facility] GFR Estimate >90 >60 mL/min/1.7 3m2 07/28/2021 10:12 AM INFORMATION AND DATA ARCHITECT ANALYST [facility] Comment:As of March 26, 2021, eGFR is calculated by the CKD-EPI creatinine equation, without race adjustment. eGFR can be influenced by muscle mass, exercise, and diet. The reported eGFR is an estimation only and is only applicable if the renal function is stable. Blood STRUCTURE OF RIGHT UPPER LIMB / Unknown Venipuncture / Unknown 07/27/2021 8:57 AM INFORMATION AND DATA ARCHITECT ANALYST 07/27/2021 8:57 AM INFORMATION AND DATA ARCHITECT ANALYST Denise Woodson APRN SLAB WORKER LAB - BLOOD ORDERABLES [facility] [address] Lab (no room number, 1st floor of clinic) [place] [address], [facility] [phone] from Last 3 Months or Most Recently Relevant to Health Maintenance Care Teams Meat Stuffer Relationship Specialty Start Date End Date Yung Madrigal MD RETIRED PCP - Orthopaedics Orthopedics 08/26/12 Winston Villatoro OD [facility] [address] [facility] [address] [place] [address] PCP - Ophthalmology Ophthalmology 02/11/13 Denise Woodson Ra, APRN SLAB WORKER [address] [place] [address] PCP - General Family Practice 09/21/20 Denise Woodson Ra, APRN SLAB WORKER [address] [place] [id number] Assigned PCP 07/17/20
--- OUTSIDE RECORDS SUMMARY | 2024-01-10 20:20 | XMS_ITS | Encounter Summary ---
Author Name Unknown Organization [facility] Address [address] [place] [address]. [place] [address] Care Team Providers Care Poultry Buyer Name Role Phone Yung Madrigal MD Unavailable Unavailable Winston Villatoro OD Unavailable [phone] Denise Woodson Ra, APRN RESTORER LACE AND TEXTILES Unavailable Denise Woodson Ra, APRN RESTORER LACE AND TEXTILES Primary Care Provid er Reason for Visit * Reason Onset Date Comments MyChart Communication 06/08/2021 Abdominal pain Encounter Details Date Type Department Care Team (Late Contact Info) Description 06/08/[address] [facility] [address] [place] [address] Denise Woodson Ra, APRN RESTORER LACE AND TEXTILES [address] [place] [address] MyChart Communication (Abdominal pain) Social [...] Upcoming Encounters Date Type Department Care Team ([facility] Contact Info) Description 01/15/2024 3:30 PM CDT Office Visit [facility] [address] [place] [address] Jacque Alexis APRN RESTORER LACE AND TEXTILES [address] [place] [address] documented as of this encounter Visit Diagnoses Not on filedocumented in this encounter Additional Health Concerns Assessment Noted Time PHQ-9 Depression Total Score: 0 01/05/20 21 9:31 AM CDT documented as of this encounter Care Teams Poultry Buyer Relationship Specialty Start Date End Date Yung Madrigal MD RETIRED PCP - Orthopaedics Orthopedics 08/26/12 Winston Villatoro OD [facility] [place] [address] [facility] [address] [place] [address] PCP - Ophthalmology Ophthalmology 02/11/13 Denise Woodson Ra, APRN RESTORER LACE AND TEXTILES [address] [place] [address] PCP - General Family Practice 09/21/20 Denise Woodson Ra, APRN RESTORER LACE AND TEXTILES [address] [place] [address] Assigned PCP 07/17/20 documented as of this encounter
--- OUTSIDE RECORDS SUMMARY | 2024-01-10 20:20 | XMS_ITS | Encounter Summary ---
Author Name Unknown Organization [place] Address [address] [place] [address]. [place] [address] Care Team Providers Care Meat Market Manager Name Role Phone Yung Madrigal MD Unavailable Unavailable Winston Villatoro OD Unavailable [phone] Denise Woodson Ra, APRN DINING ROOM ATTENDANT Unavailable Denise Woodson Ra, APRN DINING ROOM ATTENDANT Primary Care Provid er Reason for Visit * Reason Comments Medication Refill Encounter Details Date Type Department Care Team (Late st Contact Info) Description [facility] [address] [place] [address] Denise Woodson Ra, APRN DINING ROOM ATTENDANT [address] [place] [address] Medication Refill Social History Tobacco [...] as final attempt to schedule. Karla Velasquez Getter Welder * Telephone Encounter - Karla Morales - 01/17/2023 8:59 AM CDT LVM requesting a call back for an appt (physical). One more attempt will be made. Karla Morales Brooklyn Getter Welder * Telephone Encounter - Arianna Lo - 01/10/2023 3:33 PM CDT Sent [employer] message requesting a call back for an appt. Two more attempts will be made. Arianna Lo [place] Getter Welder * Telephone Encounter - Leslie Mcclellan RN [...] 0 0 0 Leslie Mcclellan RN, BSN [facility] documented in this encounter Plan of Treatment Upcoming Encounters Date Type Department Care Team (Late st Contact Info) Description 01/15/2024 3:30 PM CDT Office Visit [facility] [address] [place] [address] Jacque Alexis APRN DINING ROOM ATTENDANT [address] [place] [address] documented as of this encounter Visit Diagnoses Diagnosis Moderate persistent asthma without complication Unspecified asthma documented in this encounter Additional Health Concerns Assessment Noted Time PHQ-9 Depression Total Score: 0 06/23/20 21 4:11 PM CDT documented as of this encounter Care Teams Meat Market Manager Relationship Specialty Start Date End Date Yung Madrigal MD RETIRED PCP - Orthopaedics Orthopedics 08/26/12 Winston Villatoro OD [facility] [place] [address] [place] [address] PCP - Ophthalmology Ophthalmology 02/11/13 Denise Woodson Ra, APRN DINING ROOM ATTENDANT [address] [place] [address] PCP - General Family Practice 09/21/20 Denise Woodson Ra, APRN DINING ROOM ATTENDANT [address] [place] [address] Assigned PCP 07/17/20 documented as of this encounter
--- OUTSIDE RECORDS SUMMARY | 2024-01-10 20:20 | XMS_ITS ---
Author Name Unknown Organization [facility] Address [address] [place] [address] Care Team Providers Care Nut Processing Supervisor Name Role Phone Unavailable Unavailable Unavailable Surgery Details Not on file Complications Check Surgery Details section. Procedure Estimated Blood Loss Check Surgery Details section. Procedure Findings Check Surgery Details section. Procedure Specimens Taken Check Surgery Details section.
--- OUTSIDE RECORDS SUMMARY | 2024-01-10 20:20 | XMS_ITS | Encounter Summary ---
Author Name Unknown Organization [facility] Address [address] [place] [address] Care Team Providers Care Manager Relationship Name Role Phone Darius Shaw M.D. Primary Care Provider Encounter Details Date Type Department Care Team (Late st Contact Info) Description 05/12/2013 Historical Ophthalmology [facility] Jonathan Bonilla M.D. [address] [place] [phone] Social History Tobacco Use Types Packs/Day Years [...] corneal thickness CDM Reports - EYEGEN Id: [id number] Status: Fnl documented in this encounter Plan of Treatment Not on file documented as of this encounter Visit Diagnoses Not on filedocumented in this encounter Additional Health Concerns Infection Onset Date Last Indicated Resolved Time COVID19 Pending 07/11/2020 07/11/2020 07/12/2020 5 :56 PM CDT COVID19 Pending 07/17/2020 07/17/2020 07/17/2020 9 :18 PM NBA PLAYER COVID19 Pending 09/19/2020 09/19/2020 10/09/2020 4 :45 AM NBA PLAYER COVID19 Pending 10/25/2020 10/26/2020 10/27/2020 9 :59 AM NBA PLAYER COVID19 Pending 06/03/2021 06/03/2021 06/03/2021 9 :40 AM CDT COVID19 Pending 06/03/2021 06/03/2021 06/03/2021 1 0:36 PM CDT COVID19 Pending 08/09/2021 08/09/2021 08/11/2021 1 2:57 AM NBA PLAYER COVID19 Pending 06/26/2022 06/26/2022 06/26/2022 5 :47 PM CDT Assessment Noted Time PHQ-9 Depression Total Score: 8 09/18/19 13 7:41 AM NBA PLAYER documented as of this encounter Care Teams Manager Relationship Relationship Specialty Start Date End Date Darius Shaw M.D. [address] [address] PCP - General Family Medicine 09/27/22 documented as of this encounter
--- OUTSIDE RECORDS SUMMARY | 2024-01-10 20:20 | XMS_ITS | Encounter Summary ---
Author Name Unknown Organization [place] Address [address] [place] [address] Care Team Providers Care Rough And Truing Machine Operator Name Role Phone Yung Madrigal MD Unavailable Unavailable Winston Villatoro OD Unavailable [phone] Denise Woodson Ra, APRN FLOUR MIXER Unavailable + [phone] Denise Woodson Ra, APRN FLOUR MIXER Primary Care Provid er Encounter Details Date Type Department Care Team (Late st Contact Info) Description 01/10/2023 [facility] [address] [place] [address] Arianna Lo Social History Tobacco [...] Description 01/15/2024 3:30 PM CDT [facility] [address] [place] [address] Jacque Alexis APRN FLOUR MIXER [address] [place] [address] documented as of this encounter Visit Diagnoses Not on filedocumented in this encounter Additional Health Concerns Assessment Noted Time PHQ-9 Depression Total Score: 0 06/23/20 21 4:11 PM CDT documented as of this encounter Care Teams Rough And Truing Machine Operator Relationship Specialty Start Date End Date Yung Madrigal MD RETIRED PCP - Orthopaedics Orthopedics 08/26/12 Winston Villatoro OD [facility] [place] [address] [place] [address] PCP - Ophthalmology Ophthalmology 02/11/13 Denise Woodson Ra, APRN FLOUR MIXER [address] [place] [address] PCP - General Family Practice 09/21/20 Denise Woodson Ra, APRN FLOUR MIXER [address] [place] [address] Assigned PCP 07/17/20 documented as of this encounter
--- OUTSIDE RECORDS SUMMARY | 2024-01-10 20:20 | XMS_ITS | Encounter Summary ---
Author Name Unknown Organization [facility] Address [address] [place] [address]. [place] [address] Care Team Providers Care Gasoline Tractor Operator Name Role Phone Yung Madrigal MD Unavailable Unavailable Winston Villatoro OD Unavailable [phone] Denise Woodson Ra, APRN SAFE EXPERT Unavailable Denise Woodson Ra, APRN SAFE EXPERT Primary Care Provid er Reason for Visit * Reason Onset Date Comments Medication Request 04/20/2021 escitalopram (LEXAPRO) 10 MG tablet Encounter Details Date Type Department Care Team (Late st Contact Info) Description 04/20/2021 MyC Medical Advice [facility] [address] [place] [address] Denise Woodson Ra, APRN SAFE EXPERT [address] [place] [address] Medication Request (escitalopram (LEXAPRO)... Social [...] 3:30 PM CDT [facility] [address] [place] [address] Jacque Alexis APRN SAFE EXPERT [address] [place] [address] documented as of this encounter Visit Diagnoses Diagnosis Generalized anxiety disorder Mild recurrent major depression (H24) Major depressive disorder, recurrent episode, mild documented in this encounter Additional Health Concerns Assessment Noted Time PHQ-9 Depression Total Score: 0 01/05/20 21 9:31 AM CDT documented as of this encounter Care Teams Gasoline Tractor Operator Relationship Specialty Start Date End Date Yung Madrigal MD RETIRED PCP - Orthopaedics Orthopedics 08/26/12 Winston Villatoro OD [facility] [place] [address] [facility] [address] [place] [address] PCP - Ophthalmology Ophthalmology 02/11/13 Denise Woodson Ra, APRN SAFE EXPERT [address] [place] [address] PCP - General Family Practice 09/21/20 Denise Woodson Ra, APRN SAFE EXPERT [address] [place] [address] Assigned PCP 07/17/20 documented as of this encounter
--- OUTSIDE RECORDS SUMMARY | 2024-01-10 20:20 | XMS_ITS | Encounter Summary ---
Author Name Unknown Organization [place] Address [address] [place] [address] Care Team Providers Care Respiratory Therapy Assistant Name Role Phone Yung Madrigal MD Unavailable Unavailable Winston Villatoro OD Unavailable [phone] Serum, Clara Garland MD Primary Care Provider Serum, Clara Garland MD Unavailable [phone] Denise Woodson Ra, APRN UNIFORM ATTENDANT Unavailable [phone] Denise Woodson Ra, APRN UNIFORM ATTENDANT Primary Care Provid er Reason for Visit * Reason Onset Date Comments LAB REQUEST 06/16/2019 Encounter Details Date Type Department Care Team (Late st Contact Info) Description 06/16/2019 [facility] Medical Advice [address] [place] [address] Serum, Clara Garland MD [address] [place] [address] LAB REQUEST Social History Tobacco [...] RN - 06/16/2019 4:17 PM CDT See [email or web address] message regarding yesterday's appointment. Patient requesting to check TSH and antibodies for pt reported possible yonas's. Pended TSH for provider review. documented in this encounter Plan of Treatment Upcoming Encounters Date Type Department Care Team (Late st Contact Info) Description 01/15/2024 3:30 PM CDT Office Visit [facility] [address] [place] [address] Jacque Alexis APRN UNIFORM ATTENDANT [address] [place] [address] documented as of this encounter Results * Follicle stimulating hormone (06/22/2019 3:36 PM CDT) FSH 9.5 IU/L 06/23/2019 2:32 PM CDT [facility] Comment: FSH Reference Range Female: Follicular ?2.5-10.2 ?Mid-cycle ? 3.4-33.4 ?Luteal ?1.5-9.1 ?Postmenopausal ??23.0-116.3 Blood specimen (specimen) 06/22/2019 3:36 PM CDT 06/22/2019 3:37 PM CDT Clara Cornell MD LAB - BLOOD ORD ERABLES [facility] [address] [place] [address] * TSH with free T4 reflex FUTURE anytime (06/22/2019 3:36 PM CDT) TSH 3.30 0.40 - 4.00 mU/L 06/23/2019 3:12 PM CDT [facility] Blood specimen (specimen) 06/22/2019 3:36 PM CDT 06/22/2019 3:37 PM CDT Clara Cornell MD LAB - BLOOD ORD ERABLES [facility] [address] [place] [address] documented in this encounter Visit Diagnoses Diagnosis Anti-TPO antibodies present- Primary Other and unspecified nonspecific immunological findings Excessive sweating Generalized hyperhidrosis documented in this encounter Additional Health Concerns Assessment Noted Time PHQ-9 Depression Total Score: 0 06/15/20 19 7:09 PM CDT documented as of this encounter Care Teams Respiratory Therapy Assistant Relationship Specialty Start Date End Date Yung Madrigal MD RETIRED PCP - Orthopaedics Orthopedics 08/26/12 Winston Villatoro OD [facility] [place] [address] [place] [address] PCP - Ophthalmology Ophthalmology 02/11/13 Clara Cornell MD [facility] [place] [address] [place] [address] PCP - General Internal Medicine 02/07/17 09/20/20 Denise Woodson Ra, APRN UNIFORM ATTENDANT [address] [place] [address] PCP - General Family Practice 09/21/20 Clara Cornell MD [address] [place] [address] Assigned PCP 01/17/17 07/16/20 Denise Woodson Ra, APRN UNIFORM ATTENDANT [address] [place] [address] Assigned PCP 07/17/20 documented as of this encounter
--- OUTSIDE RECORDS SUMMARY | 2024-01-10 20:20 | XMS_ITS | Clinical Summary ---
Author Name Unknown Organization [facility] Address [address] [place] [address] Care Team Providers Care Snack Bar Cook Name Role Phone Yung Madrigal MD Unavailable Unavailable Winston Villatoro OD Unavailable [phone] Denise Woodson Ra, APRN MAPLE PRODUCTS SUPERVISOR Unavailable [phone] Denise Woodson Ra, APRN MAPLE PRODUCTS SUPERVISOR Primary Care Provid er Allergies Active Allergy [...] (FLONASE) 50 MCG/ACT nasal sprayIndications:Chr onic rhinitis [place] 2 sprays into both nostrils daily 16 [...] Comments Blood Pressure 108/68 07/27/2021 8:28 AM TAX ADJUSTER Pulse 68 07/27/2021 8:28 AM TAX ADJUSTER Temperature 36.9 ??C (98.4 ??F) 07/27/2021 8:28 AM CS T Respiratory Rate 12 07/27/2021 8:28 AM TAX ADJUSTER Oxygen Saturation 97% 07/27/2021 8:28 AM TAX ADJUSTER Inhaled Oxygen Concentration - - Weight 99.3 kg (219 lb) 07/27/2021 8:28 AM TAX ADJUSTER Height 174.6 cm (5' 8.75) 02/08/2021 10:22 AM C DT Body Mass Index 32.58 02/08/2021 10:22 AM CDT Plan of Treatment Upcoming Encounters Date Type Department Care Team (Late st Contact Info) Description 01/15/2024 3:30 PM CDT Office Visit [facility] [address] [place] [address] Jacque Alexis APRN MAPLE PRODUCTS SUPERVISOR [address] [place] [address] Health Maintenance Due Date Last Done Comments [...] COMPREHENSIVE METABOLIC PANEL Routine 07/27/2021 8:57 AM TAX ADJUSTER Routine general medical examination at a health care facility CARDIOVASCULAR SCREENING; LDL GOAL LESS THAN 160 LIPID REFLEX TO DIRECT LDL PANEL Routine 07/27/2021 8:57 AM TAX ADJUSTER CARDIOVASCULAR SCREENING; LDL GOAL LESS THAN 160 [...] patient. IRMA HOWELL MD Denise Woodson APRN MAPLE PRODUCTS SUPERVISOR IMG MAMMOGRA PHY ORDERABLES * (ABNORMAL) Lipid panel reflex to direct LDL Fasting (07/27/2021 8:57 AM TAX ADJUSTER) Cholesterol 202(H) <200 mg/dL 07/28/2021 10:12 AM TAX ADJUSTER [facility] Triglycerides 91 <150 mg/dL 07/28/2021 10:12 AM TAX ADJUSTER [facility] Direct Measure HDL 56 >=50 mg/dL 07/28/2021 10:12 AM TAX ADJUSTER [facility] LDL Cholesterol Calculated 128(H) <=100 mg/dL 07/28/2021 10:12 AM TAX ADJUSTER [facility] Non HDL Cholesterol 146(H) <130 mg/dL 07/28/2021 10:12 AM TAX ADJUSTER [facility] Patient Fasting > 8hrs? Yes 07/28/2021 10:12 AM TAX ADJUSTER [facility] Blood STRUCTURE OF RIGHT UPPER LIMB / Unknown Venipuncture / Unknown 07/27/2021 8:57 AM TAX ADJUSTER 07/27/2021 8:57 AM TAX ADJUSTER Narrative [facility] - 07/28/2021 10:12 AM TAX ADJUSTER Cholesterol Desirable: ??<200 mg/dL Triglycerides Normal: ??Less [...] equal to 220 mg/dL Denise Woodson APRN MAPLE PRODUCTS SUPERVISOR LAB - BLOOD ORDERABLES [facility] [address] Lab (no room number, 1st floor of clinic) [place] [address], [facility] [phone] * Comprehensive metabolic panel (BMP + Alb, Alk Phos, ALT, AST, Total. Bili, TP) (07/27/2021 8:57 AM TAX ADJUSTER) Sodium 139 133 - 144 mmol/L 07/28/2021 10:12 AM TAX ADJUSTER [facility] Potassium 4.0 3.4 - 5.3 mmol/L 07/28/2021 10:12 AM TAX ADJUSTER [facility] Chloride 105 94 - 109 mmol/L 07/28/2021 10:12 AM TAX ADJUSTER [facility] Carbon Dioxide (CO2) 26 20 - 32 mmol/L 07/28/2021 10:12 AM TAX ADJUSTER [facility] Anion Gap 8 3 - 14 mmol/L 07/28/2021 10:12 AM TAX ADJUSTER [facility] Urea Nitrogen 20 7 - 30 mg/dL 07/28/2021 10:12 AM TAX ADJUSTER [facility] Creatinine 0.74 0.52 - 1.04 mg/dL 07/28/2021 10:12 AM TAX ADJUSTER [facility] Calcium 8.8 8.5 - 10.1 mg/dL 07/28/2021 10:12 AM TAX ADJUSTER [facility] Glucose 95 70 - 99 mg/dL 07/28/2021 10:12 AM TAX ADJUSTER [facility] Alkaline Phosphatase 67 40 - 150 U/L 07/28/2021 10:12 AM TAX ADJUSTER [facility] AST 8 0 - 45 U/L 07/28/2021 10:12 AM TAX ADJUSTER [facility] ALT 18 0 - 50 U/L 07/28/2021 10:12 AM TAX ADJUSTER [facility] Protein Total 7.6 6.8 - 8.8 g/dL 07/28/2021 10:12 AM TAX ADJUSTER [facility] Albumin 3.4 3.4 - 5.0 g/dL 07/28/2021 10:12 AM TAX ADJUSTER [facility] Bilirubin Total 0.5 0.2 - 1.3 mg/dL 07/28/2021 10:12 AM TAX ADJUSTER [facility] GFR Estimate >90 >60 mL/min/1.7 3m2 07/28/2021 10:12 AM TAX ADJUSTER [facility] Comment:As of March 26, 2021, eGFR is calculated by the CKD-EPI creatinine equation, without race adjustment. eGFR can be influenced by muscle mass, exercise, and diet. The reported eGFR is an estimation only and is only applicable if the renal function is stable. Blood STRUCTURE OF RIGHT UPPER LIMB / Unknown Venipuncture / Unknown 07/27/2021 8:57 AM TAX ADJUSTER 07/27/2021 8:57 AM TAX ADJUSTER Denise Woodson APRN MAPLE PRODUCTS SUPERVISOR LAB - BLOOD ORDERABLES [facility] [address] Lab (no room number, 1st floor of clinic) [place] [address], [facility] [phone] from Last 3 Months or Most Recently Relevant to Health Maintenance Care Teams Snack Bar Cook Relationship Specialty Start Date End Date Yung Madrigal MD RETIRED PCP - Orthopaedics Orthopedics 08/26/12 Winston Villatoro OD [facility] [place] [address] [facility] [address] [place] [address] PCP - Ophthalmology Ophthalmology 02/11/13 Denise Woodson Ra, APRN MAPLE PRODUCTS SUPERVISOR [address] [place] [address] PCP - General Family Practice 09/21/20 Denise Woodson Ra, APRN MAPLE PRODUCTS SUPERVISOR [address] [place] [address] Assigned PCP 07/17/20
--- OUTSIDE RECORDS SUMMARY | 2024-01-10 20:20 | XMS_ITS | Encounter Summary ---
Author Name Unknown Organization [facility] Address [address] [place] [address]. [place] [address] Care Team Providers Care Plug Cutter Name Role Phone Yung Madrigal MD Unavailable Unavailable Winston Villatoro OD Unavailable Denise Woodson Ra, APRN HEAD INSPECTOR AND CENTER MARKER Unavailable + [phone] Denise Woodson Ra, APRN HEAD INSPECTOR AND CENTER MARKER Primary Care Provid er Reason for Visit * Reason Comments Medication Refill Encounter Details Date Type Department Care Team (Late st Contact Info) Description 02/19/2022 Refill [facility] [address] [place] [address] Denise Woodson Ra, APRN HEAD INSPECTOR AND CENTER MARKER [address] [place] [address] Medication Refill Social History Tobacco [...] Description 01/15/2024 3:30 PM CDT Office Visit [facility] [address] [facility] [place] [address] Jacque Alexis APRN HEAD INSPECTOR AND CENTER MARKER [address] [place] [address] documented as of this encounter Visit Diagnoses Diagnosis Moderate persistent asthma without complication Unspecified asthma documented in this encounter Additional Health Concerns Assessment Noted Time PHQ-9 Depression Total Score: 0 06/23/20 21 4:11 PM CDT documented as of this encounter Care Teams Plug Cutter Relationship Specialty Start Date End Date Yung Madrigal MD RETIRED PCP - Orthopaedics Orthopedics 08/26/12 Winston Villatoro OD [facility] [address] [facility] [address] [place] [address] PCP - Ophthalmology Ophthalmology 02/11/13 Denise Woodson Ra, APRN HEAD INSPECTOR AND CENTER MARKER [address] [place] [address] PCP - General Family Practice 09/21/20 Denise Woodson Ra, APRN HEAD INSPECTOR AND CENTER MARKER [address] [place] [address] Assigned PCP 07/17/20 documented as of this encounter
--- OUTSIDE RECORDS SUMMARY | 2024-01-10 20:20 | XMS_ITS | Encounter Summary ---
Author Name Unknown Organization [place] Address [address] [place] [address] Care Team Providers Care Director College Name Role Phone Timmy Perez MD Unavailable Unavailable Yung Madrigal MD Unavailable Unavailable Winston Villatoro OD Unavailable [phone] Apple Sykes MD Primary Care Provider [phone] Westley Bates MD Unavailable [phone] Alessandra Cabrales APRN WIRE MESH GATE ASSEMBLER Primary Car e Provider Serum, Clara Garland MD Primary Care Provider Serum, Clara Garland MD Unavailable Serum, Clara Garland MD Unavailable [phone] Denise Woodson Ra, APRN WIRE MESH GATE ASSEMBLER Unavailable [phone] Denise Woodson Ra, APRN, CNP Primary Care Provid er Reason for Visit * Reason Onset Date Comments MyChart Communication 05/30/2013 Encounter Details Date Type Department Care Team (Latest Contact Info) Description 05/30/[address] [facility] [address] [place] [address] Apple Sykes MD [address] [place] [address] MyChart Communication Social History Tobacco Use Types [...] 01/15/2024 3:30 PM CDT Office Visit [facility] [address] [place] [address] Jacque Alexis APRN WIRE MESH GATE ASSEMBLER [address] [place] [address] documented as of this encounter Visit Diagnoses Not on filedocumented in this encounter Care Teams Director College Relationship Specialty Start Date End Date Timmy Perez MD PCP - Obstetrics/Gynecology 03/02/08 08/07/15 Yung Madrigal MD RETIRED PCP - Orthopaedics Orthopedics 08/26/12 Winston Villatoro OD [facility] [place] [address] [place] [address] PCP - Ophthalmology Ophthalmology 02/11/13 Apple Sykes MD [facility] [place] [address] [place] [address] PCP - General Family Practice 05/04/13 10/25/16 Westley Bates MD XXX RETIRED [place] [address] [place] [address] PCP - ENT Otolaryngology 05/14/13 07/28/18 Alessandra Cabrales APRN WIRE MESH GATE ASSEMBLER [address] [place] [address] [place] [address] PCP - General Nurse Practitioner 10/26/16 02/06/17 Clara Cornell MD [address] [facility] [place] [address] PCP - General Internal Medicine 02/07/17 09/20/20 Clara Cornell MD [address] [place] [address] PCP - Assigned PCP 01/17/17 11/18/18 Denise Woodson Ra, APRN WIRE MESH GATE ASSEMBLER [address] [place] [address] PCP - General Family Practice 09/21/20 Clara Cornell MD [address] [facility] [place] [address] Assigned PCP 01/17/17 07/16/20 Denise Woodson Ra, APRN WIRE MESH GATE ASSEMBLER [address] [place] [address] Assigned PCP 07/17/20 documented as of this encounter
--- OUTSIDE RECORDS SUMMARY | 2024-01-10 20:20 | XMS_ITS | Encounter Summary ---
Author Name Unknown Organization [facility] Address [address] [place] [address] Care Team Providers Care Coppersmith Helper Name Role Phone Yung Madrigal MD Unavailable Unavailable Winston Villatoro OD Unavailable [phone] Serum, Clara Garland MD Primary Care Provider Serum, Clara Garland MD Unavailable [phone] Denise Woodson Ra, APRN LICENSED DIRECT ENTRY MIDWIFE Unavailable [phone] Denise Woodson Ra, APRN LICENSED DIRECT ENTRY MIDWIFE Primary Care Provid er Encounter Details Date Type Department Care Team (Late st Contact Info) Description 01/21/2019 MyC Medical Advice [address] [place] [address] [facility] Social History Tobacco Use [...] 3:30 PM CDT Office Visit [facility] [address] [place] [address] Jacque Alexis APRN LICENSED DIRECT ENTRY MIDWIFE [address] [place] [address] documented as of this encounter Visit Diagnoses Not on filedocumented in this encounter Additional Health Concerns Assessment Noted Time PHQ-9 Depression Total Score: 0 02/09/20 17 7:29 AM CDT documented as of this encounter Care Teams Coppersmith Helper Relationship Specialty Start Date End Date Yung Madrigal MD RETIRED PCP - Orthopaedics Orthopedics 08/26/12 Winston Villatoro OD [facility] [place] [address] [place] [address] PCP - Ophthalmology Ophthalmology 02/11/13 Clara Cornell MD [facility] [place] [address] [place] [address] PCP - General Internal Medicine 02/07/17 09/20/20 Denise Woodson Ra, APRN LICENSED DIRECT ENTRY MIDWIFE [address] [place] [address] PCP - General Family Practice 09/21/20 Clara Cornell MD [address] [place] [address] Assigned PCP 01/17/17 07/16/20 Denise Woodson Ra, APRN LICENSED DIRECT ENTRY MIDWIFE [address] [place] [address] Assigned PCP 07/17/20 documented as of this encounter
--- OUTSIDE RECORDS SUMMARY | 2024-01-10 20:20 | XMS_ITS | Encounter Summary ---
Author Name Unknown Organization [facility] Address [address] [place] [address]. [place] [address] Care Team Providers Care Chemical Engineering Professor Name Role Phone Yung Madrigal MD Unavailable Unavailable Winston Villatoro OD Unavailable [phone] Denise Woodson Ra, APRN HEAVY EQUIPMENT SERVICE TECHNICIAN Unavailable + [phone] Denise Woodson Ra, APRN HEAVY EQUIPMENT SERVICE TECHNICIAN Primary Care Provid er Reason for Visit * Reason Comments Medication Refill Encounter Details Date Type Department Care Team (Late st Contact Info) Description 06/11/[address] [place] [address] Denise Woodson Ra, APRN HEAVY EQUIPMENT SERVICE TECHNICIAN [address] [place], [place] [id number] Medication Refill Social History Tobacco Use Types [...] 3:30 PM CDT Office Visit [facility] [address] [place] [address] Jacque Alexis APRN HEAVY EQUIPMENT SERVICE TECHNICIAN [address] [place] [address] documented as of this encounter Visit Diagnoses Diagnosis Insomnia, unspecified type documented in this encounter Additional Health Concerns Assessment Noted Time PHQ-9 Depression Total Score: 0 01/05/20 21 9:31 AM CDT documented as of this encounter Care Teams Chemical Engineering Professor Relationship Specialty Start Date End Date Yung Madrigal MD RETIRED PCP - Orthopaedics Orthopedics 08/26/12 Winston Villatoro OD [facility] [place] [address] [facility] [address] [place] [address] PCP - Ophthalmology Ophthalmology 02/11/13 Denise Woodson Ra, APRN HEAVY EQUIPMENT SERVICE TECHNICIAN [address] [address] [place] [address] PCP - General Family Practice 09/21/20 Denise Woodson Ra, APRN HEAVY EQUIPMENT SERVICE TECHNICIAN [address] [address] [place] [id number] Assigned PCP 07/17/20 documented as of this encounter
--- OUTSIDE RECORDS SUMMARY | 2024-01-10 20:20 | XMS_ITS | Encounter Summary ---
Author Name Unknown Organization [facility] Address [address] [place] [address]. [place] [address] Care Team Providers Care Assurance Analyst Name Role Phone Yung Madrigal MD Unavailable Unavailable Winston Vlilatoro OD Unavailable [phone] Denise Woodson Ra, APRN MANAGER PUBLISHING Unavailable + [phone] Denise Woodson Ra, APRN MANAGER PUBLISHING Primary Care Provid er Reason for Visit * Reason Onset Date Comments URI 09/21/2020 Encounter Details Date Type Department Care Team (Late st Contact Info) Description 09/21/2020 [facility] Medical Advice [facility] [address] [place] [address] Denise Woodson Ra, APRN MANAGER PUBLISHING [address] [place] [address] URI Social History Tobacco Use [...] COVID-19? No / Unsure 09/21/2020 12:04 PM PICKING MACHINE OPERATOR documented as of this encounter Miscellaneous Notes * Telephone Encounter - Kati Yang RN - 09/21/2020 10:54 AM CST [facility] message sent to patient. Kati Yang RN ING MACHINE OPERATOR documented in this encounter Plan of Treatment Upcoming Encounters Date Type Department Care Team (Late st Contact Info) Description 01/15/2024 3:30 PM CDT [facility] [address] [place] [address] Jacque Alexis APRN MANAGER PUBLISHING [address] [place], [place] [id number] documented as of this encounter Visit Diagnoses Not on filedocumented in this encounter Additional Health Concerns Assessment Noted Time PHQ-9 Depression Total Score: 0 06/15/20 19 7:09 PM CDT documented as of this encounter Care Teams Assurance Analyst Relationship Specialty Start Date End Date Yung Madrigal MD RETIRED PCP - Orthopaedics Orthopedics 08/26/12 Winston Villatoro OD [facility] [place] [address] [facility] [address] [place] [address] PCP - Ophthalmology Ophthalmology 02/11/13 Denise Woodson Ra, APRN MANAGER PUBLISHING [address] [address] [place] [address] PCP - General Family Practice 09/21/20 Denise Woodson Ra, APRN MANAGER PUBLISHING [address] [address] [place] [id number] Assigned PCP 07/17/20 documented as of this encounter
--- OUTSIDE RECORDS SUMMARY | 2024-01-10 20:20 | XMS_ITS | Encounter Summary ---
Author Name Unknown Organization [facility] Address [address] [place] [address] Care Team Providers Care Product Picker Name Role Phone Yung Madrigal MD Unavailable Unavailable Winston Villatoro OD Unavailable [phone] Denise Woodson Ra, APRN STEAM CLEANING MACHINE OPERATOR Unavailable + [phone] Denise Woodson Ra, APRN STEAM CLEANING MACHINE OPERATOR Primary Care Provid er Encounter Details Date Type Department Care Team (Late Contact Info) Description 12/30/2020 [facility] [address] [place] [address] Jessica Phipps, BIBI Social History [...] 01/15/2024 3:30 PM CDT Office Visit [facility] [place] [address] [place] [address] Jacque Alexis APRN STEAM CLEANING MACHINE OPERATOR [address] [address] [place] [address] documented as of this encounter Visit Diagnoses Not on filedocumented in this encounter Additional Health Concerns Assessment Noted Time PHQ-9 Depression Total Score: 0 06/15/20 19 7:09 PM CDT documented as of this encounter Care Teams Product Picker Relationship Specialty Start Date End Date Yung Madrigal MD RETIRED PCP - Orthopaedics Orthopedics 08/26/12 Winston Villatoro OD [facility] [place] [address] [facility] [address] [place] [address] PCP - Ophthalmology Ophthalmology 02/11/13 Denise Woodson Ra, APRN STEAM CLEANING MACHINE OPERATOR [address] [address] [place] [address] PCP - General Family Practice 09/21/20 Denise Woodson Ra, APRN STEAM CLEANING MACHINE OPERATOR [address] [place] [id number] Assigned PCP 07/17/20 documented as of this encounter
--- OUTSIDE RECORDS SUMMARY | 2024-01-10 20:20 | XMS_ITS | Clinical Summary ---
Author Name Unknown Organization [facility] Address [place], [place] [address] Care Team Providers Care Parasitologist Name Role Phone Keira Irvin MD Primary Care Provider + Allergies Active Allergy Reactions Criticality Noted Date Comments Acetaminophen-Codeine Nausea And Vomiting,Other - Describe In Comment Field 01/10/2022 Bupropion Other - Describe In Comment Field 01/19/2011 Diarrhea and stomach ache Iodinated Contrast Media Headache 01/10/2024 Caused severe headache and RUE weakness. Erythromycin 07/04/2007 Mold Dizziness 08/22/2012 Pollen Extracts *Unknown 08/22/2012 Medications Medication Sig Dispensed Refills Start Date End Date Status cyclobenzaprine (FLEXERIL) 10 mg tabletIndications :Cervical disc syndrome Take 1 tablet by mouth 3 times daily. As needed for muscle spasm 30 tablet 1 05/16/2012 Active albuterol HFA (PRO-AIR,VENTOLIN ,PROVENTIL) 90 mcg/actuation inhalerIndication s:Mild persistent asthma with acute exacerbation Inhale 2 Puffs by mouth 4 times daily if needed. 1 Inhaler 0 01/13/2016 Active ondansetron (ZOFRAN) 4 mg tabletIndications :Periumbilical pain Take 1 tablet by mouth every 8 hours if needed for Nausea/Vomiting. 30 tablet 11/02/2019 Active Magnesium Amino Acid Chelate 100 mg tab Take 100 mg by mouth. Active ketorolac (TORADOL) 10 mg tablet Take 10 mg by mouth every 6 hours if needed. 06/03/2021 Active LORazepam (ATIVAN) 0.5 mg tab as needed. Active fluticasone furoate-vilantero L (Breo Ellipta) 200mcg/25mcg inhalerIndication s:BPD (bronchopulmonary dysplasia) Inhale 1 Puff by mouth once daily. 90 Each 3 03/07/2022 Active traZODone (DESYREL) 100 mg tabletIndications :Other insomnia Take 1 Tablet (100 mg) by mouth at bedtime. 90 Tablet 3 03/07/2022 Active aspirin (ECOTRIN) 81 mg enteric coated tabletIndications :AVF (arteriovenous fistula) (HC) Take 1 Tablet (81 mg) by mouth once daily. 01/09/2024 Active methylPREDNISolon e (MEDROL DOSEPAK) 4 mg tabletIndications :AVF (arteriovenous fistula) (HC) Take by mouth as instructed per packaging. 21 Tablet 01/09/2024 Active acetaminophen (TYLENOL EXTRA STRGTH) 500 mg tabletIndications :AVF (arteriovenous fistula) (HC) Take 1-2 Tablets (500-1,000 mg) by mouth every 6 hours if needed for Headache or Pain. Max acetaminophen dose: 4000mg in 24 hrs. 01/09/2024 Active durable medical equipment (DME)Indications: Plantar fasciitis, bilateral [id number] Plantar Fasciitis, night splint, Large 1 Each 04/12/2021 4 Discontinue d(*Patient states no longer taking) buPROPion (WELLBUTRIN SR) 100 mg Sustained-Release tabletIndications :Anxiety and depression Take 1 Tablet (100 mg) by mouth two times daily. Start with once daily for 1 week. 60 Tablet 11 01/09/2023 4 Discontinue d(*Patient states no longer taking) Active Problems Problem Noted Date Diagnosed Date AVF (arteriovenous fistula) 01/09/2024 Vitamin D deficiency 08/10/2011 ADD (attention deficit [...] Cervical disc syndrome Fibromyalgia Encounters Date Type Department Care Team Description 01/10/2024 Orders Only [facility] [address] [place] [address] Timoteo Gutierrez MD <No scans attached> 01/10/2024 Telephone [facility] [address] [place] [address] Aby Saxena NP Follow Up 01/09/2024 1:20 PM CDT - 01/09/2024 3:30 PM CDT Hospital Encounter [facility] [address] [place] [address] Timoteo Gutierrez MD AVF (arteriovenous fistula) (HC) (Primary Dx); Tinnitus, left ear; Headache Discharge Disposition: Home Self Care 01/09/2024 Travel from Last 3 Months Immunizations Name Administration Dates Next Due COVID-19 vaccine ([email or web address] NTZipalong 30mcg/0.3mL) CORKY ROSARIO 07/07/2021 Hepatitis B, Unspecified 03/03/2012,02/14,11/07/2011,2011,10/04/2011,10/04/2011 Influenza Virus, [...] Sign Reading Time Taken Comments Blood Pressure 153/91 01/09/2024 2:00 PM CDT Pulse 81 01/09/2024 2:00 PM CDT Temperature 36.6 ??C (97.8 ??F) 01/10/2022 4:36 PM CD T Respiratory Rate 14 01/09/2024 2:00 PM CDT Oxygen Saturation 95% 01/09/2024 2:00 PM CDT Inhaled Oxygen Concentration - - Weight 95.3 kg (210 lb) 01/09/2024 7:30 AM CDT Height 174 cm (5' 8.5) 01/09/2024 7:30 AM CDT Body Mass Index 31.47 01/09/2024 7:30 AM CDT Plan of Treatment Health Maintenance [...] Procedure Name Priority Date/Time Associated Diagnosis Comments CT ANGIO HEAD AND NECK CAROTID STAT 01/09/2024 12:02 PM CDT IR ANGIO CAROTID CEREBRAL BILATERAL Routine 01/09/2024 9:16 AM CDT Tinnitus, left ear Headache LIPID PANEL W REFLEX MEASURED LDL Routine 08/03/2011 10:31 AM STRETCHING MACHINE OPERATOR Screening for other and unspecified cardiovascular conditions from Last 3 Months or Most Recently Relevant to Health Maintenance Results * CT ANGIO HEAD AND NECK CAROTID (01/09/2024 12:02 PM CDT) Anatomical Region Laterality Modality BRAIN, NECK Computed Tomogra phy 01/09/2024 1:12 PM CDT Addenda Addendum by Len Randolph MD on 01/09/2024 1:15 PM CDT For Patients: ??As a result of the Century Cures Act, medical imaging exams and procedure reports are released immediately into your electronic medical record. ??You may view this report before your referring provider. ?? If you have questions, please contact your health care provider. CLINICAL HISTORY: Right upper extremity weakness and dysmetria. TECHNIQUE: Standard helical CT image acquisition through the head following the administration of intravenous contrast was performed. 3D and MIP reconstructions were performed at a separate workstation and permanently archived. COMPARISON: Same-day catheter angiogram. FINDINGS: No intracranial proximal large vessel occlusion or flow-limiting luminal stenosis. No evidence of cerebral aneurysm. Enlarged left occipital and middle meningeal arteries consistent with the known dural arteriovenous fistula involving the left sigmoid sinus. The major dural venous sinuses and deep venous system are patent. IMPRESSION: 1. No intracranial proximal large vessel occlusion, flow-limiting luminal stenosis, or cerebral aneurysm. 2. Enlarged left occipital and middle meningeal arteries consistent with the known left sigmoid dural arteriovenous fistula. Please note that all CT scans at this facility use dose modulation, iterative reconstruction, and/or weight-based dosing when appropriate to reduce radiation dose to as low as reasonably achievable. Dictated by Len Randolph MD @ 01/09/2024 1:14:57 PM (Electronically Signed) Impressions 01/09/2024 1:12 PM CDT 1. Patent cervical arterial vasculature without hemodynamically significant luminal stenosis. 2. Corrugated morphology of the cervical ICAs likely reflects underlying fibromuscular dysplasia. 3. The nonocclusive dissection seen on the same day catheter angiogram is less conspicuous on the current study. Please note that all CT scans at this facility use dose modulation, iterative reconstruction, and/or weight-based dosing when appropriate to reduce radiation dose to as low as reasonably achievable. Dictated by Len Randolph MD @ 01/09/2024 1:12:05 PM (Electronically Signed) Narrative 01/09/2024 1:12 PM CDT For Patients: ??As a result of the Century Cures Act, medical imaging exams and procedure reports are released immediately into your electronic medical record. ??You may view this report before your referring provider. ??If you have questions, please contact your health care provider. CLINICAL HISTORY: Right upper extremity weakness and dysmetria. TECHNIQUE: Standard helical CT image acquisition through the neck was performed after intravenous contrast bolus enhancement. 3D and MIP reconstructions were performed at a separate workstation and permanently archived. COMPARISON: Same day catheter angiogram. FINDINGS: The origins of the great vessels from the aortic arch are patent. ??The common carotid arteries are patent. No significant luminal stenoses of the proximal ICAs by NASCET criteria. The more distal cervical segments of the ICAs are patent. Corrugated morphology of the mid to distal cervical ICAs suggestive of underlying fibromuscular dysplasia. The origins and cervical segments of the vertebral arteries are patent. Procedure Note Len Randolph MD - 01/09/2024 For Patients: As a result of the 21st Century Cures Act, medical imagingexams and procedure reports are released immediately into your electronicmedical record. You may view this report before your referring provider.If you have questions, please contact your health care provider. CLINICAL HISTORY: Right upper extremity weakness and dysmetria. TECHNIQUE: Standard helical CT image acquisition through the neck was performed afterintravenous contrast bolus enhancement. 3D and MIP reconstructions wereperformed at a separate workstation and permanently archived. COMPARISON: Same day catheter angiogram. FINDINGS: The origins of the great vessels from the aortic arch are patent. Thecommon carotid arteries are patent. No significant luminal stenoses of theproximal ICAs by NASCET criteria. The more distal cervical segments of theICAs are patent. Corrugated morphology of the mid to distal cervical ICAssuggestive of underlying fibromuscular dysplasia. The origins and cervicalsegments of the vertebral arteries are patent. IMPRESSION: 1. Patent cervical arterial vasculature without hemodynamicallysignificant luminal stenosis. 2. Corrugated morphology of the cervical ICAs likely reflects underlyingfibromuscular dysplasia. 3. The nonocclusive dissection seen on the same day catheter angiogram isless conspicuous on the current study. Please note that all CT scans at this facility use dose modulation,iterative reconstruction, and/or weight-based dosing when appropriate toreduce radiation dose to as low as reasonably achievable. 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 This will be treated with aspirin therapy. Findings and recommendations were discussed with the patient at the conclusion of the examination. Timoteo Gutierrez M.D. Neurointerventionalist [facility] Pager: Office/Appointments: Answering Service: [facility] [facility] Center: [email or web address] Narrative 01/09/2024 9:57 AM CDT PHYSICIAN: Timoteo Gutierrez DATE: 01/09/2024. PROCEDURE: CEREBRAL ANGIOGRAM Selective catheter placement, right internal carotid artery, with angiography of the intracranial carotid circulation (CPT 62575) Selective catheter placement, right external carotid artery, with angiography of the external carotid circulation (CPT +79769) Selective catheter placement, left internal carotid artery, with angiography of the intracranial carotid circulation (CPT 73524) Selective catheter placement, left external carotid artery, with angiography of the external carotid circulation (CPT +10281) Selective catheter placement, right vertebral artery, with angiography of the vertebral circulation (CPT 32273) Selective catheter placement, left vertebral artery, with angiography of the vertebral circulation (CPT 85424) Ultrasound guidance for vascular access: right radial artery access (CPT +43223) Monitored conscious sedation: 50min (CPT 05147, CPT +15014 x2) CLINICAL HISTORY: 48 year-old female with left-sided pulsatile tinnitus and an enlarged left occipital artery by CTA presents for definitive evaluation with a catheter angiogram. MEDICATIONS: 2mg versed IV, 100mcg fentanyl IV, lidocaine for local anesthesia. CONSCIOUS SEDATION TIME: 50min. SAMPLES: None. 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 PROCEDURE: The risks, benefits and alternatives to cerebral angiogram were discussed with the patient and written informed consent was obtained. The patient was placed on the angio table and prepped and draped in the usual sterile fashion. TIME OUT was performed to confirm patient identity, materials and procedure type. The patient was sedated with 2mg of Versed and 100mcg of fentanyl administered by a nurse independent of the procedure. Continuous cardiopulmonary evaluation was performed as well as evaluation for degree of analgesia and sedation. 1% Xylocaine was utilized to anesthetize the skin. Using ultrasound guidance, a micropuncture needle was utilized with a single-wall puncture technique to perform a right radial percutaneous arterial puncture and a 5-Iranian sheath was placed. After infusion of a heparin, verapamil and nitroglycerin cocktail via the sheath, contrast was then injected via the sheath to assess the arterial anatomy in the right forearm. Subsequently using a 5-Iranian angled tip catheter and glidewire combination, selective catheterization was performed of the bilateral external, bilateral internal carotid arteries and bilateral vertebral arteries. Appropriate angiographic images were obtained. The catheter and sheath were then withdrawn and hemostasis was achieved with a TR band. Patient was returned to the recovery area in stable condition. FINDINGS: Right external carotid and internal carotid artery injections: There is fibromuscular dysplasia in the mid cervical segment of the right internal carotid artery with a mild non-occlusive dissection. The right external carotid artery branches are well visualized and appear normal. The distal right internal carotid artery is normal. There is normal filling of the right anterior and middle cerebral arteries and their branches. The right posterior communicating artery is not patent. The anterior communicating artery is ??opacified from [id number]. The capillary, venous, and venous sinus phases are normal. Left external carotid and internal carotid artery injections: There is a left sigmoid dural arteriovenous fistula with arterial supply from left middle meningeal, left ascending pharyngeal and left occipital artery branches, and with anterograde venous drainage to the left sigmoid sinus. The distal left internal carotid artery is normal. There is normal filling of the left anterior and middle cerebral arteries and their branches. The left posterior communicating artery is not patent. ??The anterior communicating artery is opacified from [id number]. Right vertebral artery injection: There is normal filling of the distal right vertebral artery, basilar artery, and posterior cerebral arteries bilaterally. There is also normal filling of the bilateral superior cerebellar, bilateral anterior-inferior cerebellar, and right posterior-inferior cerebellar arteries. Reflux filling of the distal left vertebral artery and its posterior-inferior cerebellar branch is also demonstrated. Left vertebral artery injection: There is normal filling of the distal left vertebral artery, basilar artery, and posterior cerebral arteries bilaterally. There is also normal filling of the bilateral superior cerebellar, bilateral anterior-inferior cerebellar, and left posterior-inferior cerebellar arteries. Reflux filling of the distal right vertebral artery and its posterior-inferior cerebellar branch is also demonstrated. Timoteo Gutierrez MD IR * LIPID PANEL W REFLEX MEASURED LDL (08/03/2011 10:31 AM STRETCHING MACHINE OPERATOR) CHOLESTEROL,TOTAL 171 110 - 199 mg/dL [facility] TRIGLYCERIDES 67 <150 mg/dL [facility] HDL CHOLESTEROL 43 >40 mg/dL [facility] CHOL/HDL RATIO 3.98 <4.51 [facility] LDL CHOLESTEROL 115 <131 mg/dL [facility] PATIENT STATUS Fasting [facility] Blood specimen (specimen) BLOOD SPECIMEN / Unknown 08/03/2011 10:31 AM STRETCHING MACHINE OPERATOR 08/03/2011 10:23 AM STRETCHING MACHINE OPERATOR Jasvir Pickens MD CHEMISTRY [facility] [address] [place] [address] from Last 3 Months or Most Recently Relevant to Health Maintenance Advance Directives * Full Code (Latest Code Status on File) Date Activated Date Inactivated Comments 01/09/2024 7:44 AM 01/09/2024 6:26 PM Question Answer Comments Code Status Discussion: Reviewed Preferences Care Teams Parasitologist Relationship Specialty Start Date End Date Keira Irvin MD [address] [place] [address] PCP - General Family Practice 01/08/24
--- OUTSIDE RECORDS SUMMARY | 2024-01-10 20:20 | XMS_ITS | Encounter Summary ---
Author Name Unknown Organization [facility] Address [address] [place] [address] Care Team Providers Care Ophthalmic Asst Name Role Phone Timmy Perez MD Unavailable Unavailable Yung Madrigal MD Unavailable Unavailable Winston Villatoro OD Unavailable [phone] Apple Sykes MD Primary Care Provider [phone] Westley Bates MD Unavailable [phone] Alessandra Cabrales APRN FIRE PREVENTION ENGINEER Primary Car e Provider Serum, Clara Garland MD Primary Care Provider Serum, Clara Garland MD Unavailable [phone] Serum, Clara Garland MD Unavailable [phone] Denise Woodson Ra, APRN FIRE PREVENTION ENGINEER Unavailable + [phone] Denise Woodson Ra, APRN, CNP Primary Care Provid er Encounter Details Date Type Department Care Team (Late st Contact Info) Description 05/26/2013 MyC Medical Advice [facility] [place] [facility] [address] [place] [phone] Yung Madrigal MD RETIRED Social History Tobacco [...] 01/15/2024 3:30 PM CDT Office Visit [facility] [address] [place] [address] Jacque Alexis APRN FIRE PREVENTION ENGINEER [address] [place] [address] documented as of this encounter Visit Diagnoses Not on filedocumented in this encounter Care Teams Ophthalmic Asst Relationship Specialty Start Date End Date Timmy Perez MD PCP - Obstetrics/Gynecology 03/02/08 08/07/15 Yung Madrigal MD RETIRED PCP - Orthopaedics Orthopedics 08/26/12 Winston Villatoro OD [facility] [place] [address] [place] [address] PCP - Ophthalmology Ophthalmology 02/11/13 Apple Sykes MD [facility] [place] [address] [place] [address] PCP - General Family Practice 05/04/13 10/25/16 Westley Bates MD XXX RETIRED XXX [address] [place] [address] PCP - ENT Otolaryngology 05/14/13 07/28/18 Alessandra Cabrales APRN FIRE PREVENTION ENGINEER [address] [facility] [place] [address] PCP - General Nurse Practitioner 10/26/16 02/06/17 Clara Cornell MD [address] [facility] [place] [address] PCP - General Internal Medicine 02/07/17 09/20/20 Clara Cornell MD [address] [place] [address] PCP - Assigned PCP 01/17/17 11/18/18 Denise Woodson Ra, APRN FIRE PREVENTION ENGINEER [address] [place] [address] PCP - General Family Practice 09/21/20 Clara Cornell MD [address] [place] [address] Assigned PCP 01/17/17 07/16/20 Denise Woodsno Ra, APRN FIRE PREVENTION ENGINEER [address] [place] [address] Assigned PCP 07/17/20 documented as of this encounter
--- OUTSIDE RECORDS SUMMARY | 2024-01-10 20:21 | XMS_ITS | Encounter Summary ---
Author Name Unknown Organization [facility] Address [address] [place] [address] Care Team Providers Care Counter Tender Name Role Phone Timmy Perez MD Unavailable Unavailable Yung Madrigal MD Unavailable Unavailable Frw, None Primary Care Provider Unavailrigoberto e Winston Villatoro OD Unavailable Apple Sykes MD Primary Care Provider [phone] Westley Bates MD Unavailable [phone] GeorginaAlessandra Gómez APRN SHAREPOINT SOLUTIONS DEVELOPER Primary Car e Provider Serum, Clara Garland MD Primary Care Provider Serum, Clara Garland MD Unavailable [phone] Serum, Clara Garland MD Unavailable [phone] Denise Woodson Ra, APRN SHAREPOINT SOLUTIONS DEVELOPER Unavailable + [phone] Denise Woodson Ra, APRN SHAREPOINT SOLUTIONS DEVELOPER Primary Care Provid er Encounter Details Date Type Department Care Team (Late st Contact Info) Description 01/30/2006 [facility] in [place] Inpatient Dept [address] [place] [phone] Frw, Inpatient Provider Social History Tobacco Use [...] pain. PROCEDURE: TOTAL VAGINAL HYSTERECTOMY. SURGEON: Chris SPRING INTERNSHIP: Radha ANESTHESIA: Spinal ESTIMATED BLOOD LOSS: 100 [...] Description 01/15/2024 3:30 PM CDT [facility] [address] [place] [address] Jacque Alexis APRN [employer] SOLUTIONS DEVELOPER [address] [place] [address] documented as of this encounter Visit Diagnoses Not on filedocumented in this encounter Care Teams Counter Tender Relationship Specialty Start Date End Date Timmy Perez MD PCP - Obstetrics/Gynecology 03/02/08 08/07/15 Yung Madrigal MD RETIRED PCP - Orthopaedics Orthopedics 08/26/12 Frw, None PCP - General Family Practice 08/26/12 05/03/13 Winston Villatoro, OD [facility] [place] [address] [place] [address] PCP - Ophthalmology Ophthalmology 02/11/13 Apple Sykes MD [facility] [place] [address] [place] [address] PCP - General Family Practice 05/04/13 10/25/16 Westley Bates MD XXX RETIRED XXX [address] [place] [address] PCP - ENT Otolaryngology 05/14/13 07/28/18 Alessandra Cabrales APRN SHAREPOINT SOLUTIONS DEVELOPER [address] [facility] [place] [address] PCP - General Nurse Practitioner 10/26/16 02/06/17 Clara Cornell MD [address] [facility] [place] [address] PCP - General Internal Medicine 02/07/17 09/20/20 Clara Cornell MD [address] [place] [address] PCP - Assigned PCP 01/17/17 11/18/18 Denise Woodson Ra, APRN SH[employer] SOLUT[employer] DEVELOPER [address] [place] [address] PCP - General Family Practice 09/21/20 Clara Cornell MD [address] [place] [address] Assigned PCP 01/17/17 07/16/20 Denise Woodson Ra, APRN SHAREPOINT SOLUTIONS DEVELOPER [address] [place] [address] Assigned PCP 07/17/20 documented as of this encounter
--- OUTSIDE RECORDS SUMMARY | 2024-01-10 20:21 | XMS_ITS | Encounter Summary ---
Author Name Unknown Organization [facility] Address [address] [place] [address] Care Team Providers Care Ware Carrier Name Role Phone Timmy Perez MD Unavailable Unavailable Yung Madrigal MD Unavailable Unavailable Winston Villatoro OD Unavailable [phone] Apple Sykes MD Primary Care Provider [phone] Westley Bates MD Unavailable [phone] Alessandra Cabrales APRN LOCOMOTIVE BOILERMAKER Primary Car e Provider Serum, Clara Garland MD Primary Care Provider Serum, Clara Garland MD Unavailable [phone] Serum, Clara Garland MD Unavailable [phone] Denise Woodson Ra, APRN LOCOMOTIVE BOILERMAKER Unavailable + [phone] Denise Woodson Ra, APRN, CNP Primary Care Provid er Encounter Details Date Type Department Care Team (Late st Contact Info) Description 05/06/2013 MyC Medical Advice [facility] in [facility] [address] [place] [address] Apple Sykes MD [address] [place] [address] Social History Tobacco Use Types Packs/Day Years [...] Description 01/15/2024 3:30 PM CDT Office Visit [facility] [address] [place] [address] Jacque Alexis APRN LOCOMOTIVE BOILERMAKER [address] [place] [address] documented as of this encounter Visit Diagnoses Not on filedocumented in this encounter Care Teams Ware Carrier Relationship Specialty Start Date End Date Timmy Perez MD PCP - Obstetrics/Gynecology 03/02/08 08/07/15 Yung Madrigal MD RETIRED PCP - Orthopaedics Orthopedics 08/26/12 Winston Villatoro, OD [facility] [place] [address] [place] [address] PCP - Ophthalmology Ophthalmology 02/11/13 Apple Sykes MD [facility] [place] [address] [place] [address] PCP - General Family Practice 05/04/13 10/25/16 Westley Bates MD XXX RETIRED XXX [address] [place] [address] PCP - ENT Otolaryngology 05/14/13 07/28/18 Alessandra Cabrales APRN LOCOMOTIVE BOILERMAKER [address] [facility] [place] [address] PCP - General Nurse Practitioner 10/26/16 02/06/17 Clara Cornell MD [address] [facility] [place] [address] PCP - General Internal Medicine 02/07/17 09/20/20 Clara Cornell MD [address] [place] [address] PCP - Assigned PCP 01/17/17 11/18/18 Denise Woodson Ra, APRN LOCOMOTIVE BOILERMAKER [address] [place] [address] PCP - General Family Practice 09/21/20 Clara Cornell MD [address] [place] [address] Assigned PCP 01/17/17 07/16/20 Denise Woodson Ra, APRN LOCOMOTIVE BOILERMAKER [address] [place] [address] Assigned PCP 07/17/20 documented as of this encounter
--- OUTSIDE RECORDS SUMMARY | 2024-01-10 20:21 | XMS_ITS | Encounter Summary ---
Author Name Unknown Organization [facility] Address [address] [place] [address] Care Team Providers Care Roper Operator Name Role Phone Timmy Perez MD Unavailable Unavailable Yung Madrigal MD Unavailable Unavailable Frw, None Primary Care Provider Unavailrigoberto e Winston Villatoro OD Unavailable [phone] Apple Sykes MD Primary Care Provider [phone] Westley Bates MD Unavailable [phone] Alessandra Cabrales APRN MEDIATION COMMISSIONER Primary Car e Provider Serum, Clara Garland MD Primary Care Provider Serum, Clara Garland MD Unavailable [phone] Serum, Clara Garland MD Unavailable Denise Woodson Ra, APRN MEDIATION COMMISSIONER Unavailable [phone] Denise Woodson Ra, APRN MEDIATION COMMISSIONER Primary Care Provid er Reason for Visit * Reason Onset Date Comments Medication Question 04/21/2013 Farhan [facility] Encounter Details Date Type Department Care Team (Late st Contact Info) Description 04/21/2013 Telephone [facility] in [facility] [address] [place] [address] [place] [address] Janna Rodriguez, residential insurance inspector Question (Far[facility]) Social History Tobacco Use Types Packs/Day [...] PM CDT Office Visit [facility] [address] [place] [phone] Jacque Alexis APRN MEDIATION COMMISSIONER [address] [place], [place] [phone] documented as of this encounter Visit Diagnoses Not on filedocumented in this encounter Care Teams Roper Operator Relationship Specialty Start Date End Date Timmy Perez MD PCP - Obstetrics/Gynecology 03/02/08 08/07/15 Yung Madrigal MD RETIRED PCP - Orthopaedics Orthopedics 08/26/12 Frw, None PCP - General Family Practice 08/26/12 05/03/13 Winston Villatoro OD [facility] [place] [address] [place] [address] PCP - Ophthalmology Ophthalmology 02/11/13 Apple Sykes MD [facility] [place] [address] [place] [address] PCP - General Family Practice 05/04/13 10/25/16 Westley Bates MD XXX RETIRED XXX [address] [place] [address] PCP - ENT Otolaryngology 05/14/13 07/28/18 GeorginaAlessandra Gómez APRN MEDIATION COMMISSIONER [address] [facility] [place] [address] PCP - General Nurse Practitioner 10/26/16 02/06/17 Clara Cornell MD [address] [facility] [place] [address] PCP - General Internal Medicine 02/07/17 09/20/20 Clara Cornell MD [address] [place] [address] PCP - Assigned PCP 01/17/17 11/18/18 Denise Woodson Ra, LEG ASSEMBLER MEDIATION COMMISSIONER [address] [place] [address] PCP - General Family Practice 09/21/20 Clara Cornell MD [address] [place] [address] Assigned PCP 01/17/17 07/16/20 Denise Woodson Ra, LEG ASSEMBLER MEDIATION COMMISSIONER [address] [place] [id number] Assigned PCP 07/17/20 documented as of this encounter
--- OUTSIDE RECORDS SUMMARY | 2024-01-10 20:21 | XMS_ITS | Encounter Summary ---
Author Name Unknown Organization [facility] Address [address] [place] [address] Care Team Providers Care Strategic Partnership Specialist Name Role Phone Timmy Perez MD Unavailable Unavailable Encounter Details Date Type Department Care Team (Late st Contact Info) Description 01/17/2012 3:20 PM CDT [facility] in [address] [phone] Luis Walsh [address] [place] [address] Interface, MD [place] Social History Tobacco Use [...] PM CDT [facility] [address] [place] [phone] Jacque Alexis APRN [facility] [address] [place] [address] documented as of this encounter Visit Diagnoses Not on filedocumented in this encounter Care Teams Strategic Partnership Specialist Relationship Specialty Start Date End Date Timmy Perez MD PCP - Obstetrics/Gynecology 03/02/0807/18 documented as of this encounter
--- OUTSIDE RECORDS SUMMARY | 2024-01-10 20:21 | XMS_ITS | Encounter Summary ---
Author Name Unknown Organization [facility] Address [address] [place] [address] Care Team Providers Care Card Decorator Name Role Phone Timmy Perez MD Unavailable Unavailable Yung Madrigal MD Unavailable Unavailable Frw, None Primary Care Provider Unavailabl e Winston Villatoro OD Unavailable [phone] Apple Sykes MD Primary Care Provider [phone] Westely Bates MD Unavailable [phone] Alessandra Cabrales APRN FARM MANAGER Primary Car e Provider Serum, Clara Garland MD Primary Care Provider Serum, Clara Garland MD Unavailable [phone] Serum, Clara Garland MD Unavailable [phone] Denise Woodson Ra, APRN FARM MANAGER Unavailable [phone] Denise Woodson Ra, APRN FARM MANAGER Primary Care Provid er Encounter Details Date Type Department Care Team (Late st Contact Info) Description 01/31/2006 [facility] in [place] STERILE PROCESSING TECHNOLOGIST [address] [place] [phone] Timmy Perez MD Social History Tobacco Use [...] 3:30 PM CDT Office Visit [facility] [address] [place] [address] Jacque Alexis APRN FARM MANAGER [address] [place] [address] documented as of this encounter Visit Diagnoses Not on filedocumented in this encounter Care Teams Card Decorator Relationship Specialty Start Date End Date Timmy Perez MD PCP - Obstetrics/Gynecology 03/02/08 08/07/15 Yung Madrigal MD RETIRED PCP - Orthopaedics Orthopedics 08/26/12 Frw, None PCP - General Family Practice 08/26/12 05/03/[address] [facility] [place] [address] [place] [address] PCP - Ophthalmology Ophthalmology 02/11/[address] [facility] [place] [address] [place] [address] PCP - General Family Practice 05/04/13 10/25/16 Westley Bates MD XXX RETIRED XXX [address] [place] [address] PCP - ENT Otolaryngology 05/14/13 07/28/18 Alessandra Cabrales APRN FARM MANAGER [address] [facility] [place] [address] PCP - General Nurse Practitioner 10/26/16 02/06/17 Clara Cornell MD [address] [facility] [place] [address] PCP - General Internal Medicine 02/07/17 09/20/20 Clara Cornell MD [address] [place] [address] PCP - Assigned PCP 01/17/17 11/18/18 Denise Woodson Ra, APRN FARM MANAGER [address] [place] [address] PCP - General Family Practice 09/21/20 Clara Cornell MD [address] [place] [address] Assigned PCP 01/17/17 07/16/20 Denise Woodson Ra, APRN FARM MANAGER [address] [place] [address] Assigned PCP 07/17/20 documented as of this encounter
--- OUTSIDE RECORDS SUMMARY | 2024-01-10 20:21 | XMS_ITS | Encounter Summary ---
Author Name Unknown Organization [facility] Address [address] [place] [address] Care Team Providers Care Rattan Worker Name Role Phone Timmy Perez MD Unavailable Unavailable Yung Madrigal MD Unavailable Unavailable Winston Villatoro OD Unavailable [phone] Apple Sykes MD Primary Care Provider [phone] Westley Bates MD Unavailable [phone] Alessandra Cabrales APRN MOBILE UI DEVELOPER Primary Car e Provider Serum, Clara Garland MD Primary Care Provider Serum, Clara Garland MD Unavailable [phone] Serum, Clara Garland MD Unavailable [phone] Denise Woodson Ra, APRN MOBILE UI DEVELOPER Unavailable + [phone] Denise Woodson Ra, APRN, CNP Primary Care Provid er Encounter Details Date Type Department Care Team (Late st Contact Info) Description 05/19/2013 MyC Medical Advice [facility] in [place] Orthopedics [address] [place] [phone] Yung Madrigal MD RETIRED Social History Tobacco [...] Description 01/15/2024 3:30 PM CDT Office Visit [facility] [address] [place] [address] Jacque Alexis APRN MOBILE UI DEVELOPER [address] [place] [address] documented as of this encounter Visit Diagnoses Not on filedocumented in this encounter Care Teams Rattan Worker Relationship Specialty Start Date End Date Timmy Perez MD PCP - Obstetrics/Gynecology 03/02/08 08/07/15 Yung Madrigal MD RETIRED PCP - Orthopaedics Orthopedics 08/26/12 Winston Villatoro OD [facility] [place] [address] [place] [address] PCP - Ophthalmology Ophthalmology 02/11/13 Apple Sykes MD [facility] [place] [address] [place] [address] PCP - General Family Practice 05/04/13 10/25/16 Westley Bates MD XXX RETIRED XXX [address] [place] [address] PCP - ENT Otolaryngology 05/14/13 07/28/18 Alessandra Cabrales APRN MOBILE UI DEVELOPER [address] [facility] [place] [address] PCP - General Nurse Practitioner 10/26/16 02/06/17 Clara Cornell MD [address] [facility] [place] [address] PCP - General Internal Medicine 02/07/17 09/20/20 Clara Cornell MD [address] [place] [address] PCP - Assigned PCP 01/17/17 11/18/18 Denise Woodson Ra, APRN MOBILE UI DEVELOPER [address] [place] [address] PCP - General Family Practice 09/21/20 Clara Cornell MD [address] [place] [address] Assigned PCP 01/17/17 07/16/20 Denise Woodson Ra, APRN MOBILE UI DEVELOPER [address] [place] [address] Assigned PCP 07/17/20 documented as of this encounter
[2024-01-10 20:25] VITALS: BP 135/80; PULSE 79; RESP 18; TEMP 37.1; O2SAT 98
[2024-01-10 20:26] VITALS: BP 135/80; PULSE 79; RESP 18; TEMP 37.1
== END 2024-01-10 20:26 | disposition home or self-care (01) ==
LOC: ED 20:17
PROVIDERS: Emergency Provider Internal Medicine; PCP Family Medicine
DX: M25.511 Pain in right shoulder (principal)
CPT/HCPCS: 99283

== ENCOUNTER 2024-01-12 15:17 | Emergency (ER) | payer OTHER, SELFPAY ==
[2024-01-12 15:20] VITALS: BP 181/92; PULSE 72; RESP 18; TEMP 36.9; O2SAT 98; BMI 31.9
--- NOTE | 2024-01-12 15:34 | ED_ITS ---
HPI - General Adult General Time Seen by Provider: 15:34 Date Seen: 01/12/24 Chief complaint: Extremity Pain/Injury, Upper Stated complaint: R arm swelling Time Seen by Provider: 01/12/24 15:34 Source: patient, RN notes reviewed and old records reviewed Mode of arrival: ambulatory Limitations: no limitations History of Present Illness HPI narrative: This 48-year-old female is coming in with concern of her right arm being cooler, burning sensation in the forearm, feeling some forearm swelling. Patient had a diagnostic catheter cerebral angiogram done on 01/09/2020 for at [facility]. She was having this done for history of pulsatile left tinnitus with concerns of asymmetric enlargement of the left occipital artery compared to the right. 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 The diagnostic cerebral angiogram was being done to exclude a dural AVF. 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 This will be treated with aspirin therapy. Postprocedure early patient was experiencing weakness and incoordination of her right extremity. She did have emergent noncontrast head CT and CTAs showing no acute change. She was to be monitored overnight, have potential MRI done later that evening but patient opted to go home. She is noted progressive increased improvement in her right arm function eating and strength. She states her hand just feels funny, not really numb or tingly. She states it just feels differen t. She feels like she still using this extremity normally, not just having it lie along her side. She notes some bruising developing at the puncture site, we did discuss that that is normal. Related Data Home Medications Medication Instructions Recorded Confirmed fluticasone furoate 200 1 inh inhalation Q24H 07/03/22 12/31/23 mcg-vilanterol 25 mcg/dose inhalation powder (Breo Ellipta) albuterol sulfate 90 mcg/actuation 2 puff inhalation Q6H PRN 08/01/22 12/31/23 aerosol inhaler magnesium 250 mg tablet 250 mg PO QDAY 08/02/22 12/31/23 trazodone 100 mg tablet 100 mg PO QDAY sleep 08/02/22 12/31/23 cetirizine 10 mg tablet (Zyrtec) 10 mg PO QDAY PRN 10/08/23 12/31/23 hydroxyzine HCl 25 mg tablet 25 mg PO BID PRN 12/31/23 12/31/23 Previous Rx's Medication Instructions Recorded ketorolac 10 mg tablet 10 mg PO Q6H PRN pain 5 days #20 07/03/22 tabs albuterol sulfate 2.5 mg/3 mL 2.5 mg (3 mL) inhalation Q4-6H PRN 09/23/22 (0.083 %) solution for nebulization #75 mL ipratropium 0.5 mg-albuterol 3 mg 3 ml inhalation Q6H PRN #90 mL 09/26/22 (2.5 mg base)/3 mL nebulization soln Allergies Allergy/AdvReac Type Severity Reaction Status Date / Time bupropion Allergy Intermediate Diarrhea Verified 01/04/24 17:18 codeine Allergy Intermediate epigastric Verified 01/04/24 17:18 pain erythromycin base Allergy Intermediate stomach Verified 01/04/24 17:18 upset, diarrhea Review of Systems Narrative: As per HPI. [facility] Medical History Asthma ?J45.909 - Unspecified asthma, uncomplicated (ICD-10) History of blood transfusion (1994) ?Z92.89 - Personal history of other medical treatment (ICD-10) History of vitamin D deficiency ?Z86.39 - Personal history of other endocrine, nutritional and metabolic disease (ICD-10) Anxiety and depression ?F41.9 - Anxiety disorder, unspecified (ICD-10) ?F32.A - Depression, unspecified (ICD-10) Fibromyalgia ?M79.7 - Fibromyalgia (ICD-10) Mild persistent asthma ?J45.30 - Mild persistent asthma, uncomplicated (ICD-10) H/O bronchopulmonary dysplasia ?Z87.09 - Personal history of other diseases of the respiratory system (ICD- 10) Stage 1 chronic kidney disease (11/16/20) ?N18.1 - Chronic kidney disease, stage 1 (ICD-10) Simple renal cyst (10/2020) ?N28.1 - Cyst of kidney, acquired (ICD-10) 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, unspecified (ICD-10) Asthma ?J45.909 - Unspecified asthma, uncomplicated (ICD-10) Surgical History History of laparoscopy ?Z98.890 - Other specified postprocedural states (ICD-10) S/P dilation and curettage (1994) ?Z98.890 - Other specified postprocedural states (ICD-10) H/O tubal ligation ?Z98.51 - Tubal ligation status (ICD-10) Status post excision of lipoma (2011) ?Z98.890 - Other specified postprocedural states (ICD-10) ?Z86.018 - Personal history of other benign neoplasm (ICD-10) History of medial meniscus repair of left knee (08/04/13) ?Z98.890 - Other specified postprocedural states (ICD-10) History of laparoscopic cholecystectomy (09/29/20) ?Z90.49 - Acquired absence of other specified parts of digestive tract (ICD- 10) History of hysterectomy for benign disease (2005) ?Z90.710 - Acquired absence of both cervix and uterus (ICD-10) History of catheter-based closure of atrial septal defect (06/2006) ?Z87.74 - Personal history of (corrected) congenital malformations of heart and circulatory system (ICD-10) Family History Maternal Grandmother Stroke Paternal Grandfather Diabetes Daughter Depression Social History Narrative: She recently moved to [place]. 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 She has a college education She exercises 5 days a week with walking in treadmill 2M She does not smoke She does not drink alcohol or use recreational drugs Smoking Status: Never smoker Do you use any of these nicotine containing products: None Second hand tobacco smoke exposure: No How often do you have a drink containing alcohol: monthly or less How often do you have six or more drinks on one occasion: Never AUDIT-C Alcohol total score: 1 Non-prescribed substance use: denies use Caffeine: Yes (coffee 1 cup/day) Little interest or pleasure in doing things: not at all Feeling down, depressed, or hopeless: not at all Are you using contraception or practicing any form of control: Yes (hysterectomy) service: No Exam Const: Vital Signs, click to edit/add: Vital Signs - 24 hr 01/12/24 15:20 Temperature 98.5 F Pulse Rate [Right Pulse Oximeter] 72 Respiratory Rate 18 Blood Pressure [Ri ght Upper Arm] 181/92 H Pulse Oximetry 98 Oxygen Delivery Me thod Room Air Jose is alert, interactive, no apparent distress. She is ambulatory into the ED of her own accord. Symmetrical facial function, speech normal. She has 5/5 symmetric strength about her shoulder, elbow, hand and wrist. She has a scabbed minute puncture site over the right radial artery in the wrist, there is some mild ecchymosis developing, mild swelling about the wrist into the distal forearm. Her hand does feel cool in comparison to her left. She still has good cap refill. She has normal rapid alternating finger movements. Again her hand car hop are 5/5 and symmetric. She can feel me touch but states it feels differen t than the left. She has pain that is significant along the right wrist area and generalize as into the forearm. Manipulation of her arm does increase her pain. I do not find any motor neurologic deficit. Arm is not cyanotic. CV regular rate and rhythm, no murmur. Lungs are clear, no wheezing or crackles. Patient is ambulatory into the ED of her own accord. Documenting provider has reviewed patient's vital signs: yes Course Course ED Course: We were able to do ultrasound here, do not do CT angiogram procedures of the extremities. We will get an arterial ultrasound to ensure no occlusive clot, aneurysm. May need to talk to Neurology on this patient. Reevaluation(s) Time of Reevaluation #1: 17:09 Reevaluation #1: Reviewed with patient that the ultrasound is not showing any acute pathology on preliminary review of the territory account representative. Also reviewed that I have spoken with Dr. Gutierrez specifically whom was her Neurology Interventional radiologist. She is reassured. She is maintaining on her aspirin and should do so per his report. Consultations Consultation #1: Spoke with Dr. Wood from [facility], on-call stroke neurology. We reviewed this case. She does think that I should talk to neuro interventional radiology on- call. Time: 16:34 Consultation #2: Spoke with Dr. Gutierrez from Interventional Radiology, he is actually her physician who performed the procedure. We reviewed the ultrasound report preliminarily from the territory account representative, patient's current symptoms. He is not concerned at this point. Plan is to discharge her to home, continue her aspirin. Time: 17:02 Vital Signs Vital signs: Initial Vital Signs Temperature 98.5 F 01/12/24 15:20 Temperature Source Temporal Artery Scan 01/12/24 15:20 Pulse Rate 72 01/12/24 15:20 Respiratory Rate 18 01/12/24 15:20 Blood Pressure 181/92 H 01/12/24 15:20 Blood Pressure Mean 121 H 01/12/24 15:20 Blood Pressure Position Sitting 01/12/24 15:20 Pulse Oximetry 98 01/12/24 15:20 Oxygen Delivery Method Room Air 01/12/24 15:20 Vital Signs Temperature 98.5 F 01/12/24 15:20 Pulse Rate 72 01/12/24 15:20 Respiratory Rate 18 01/12/24 15:20 Blood Pressure 181/92 H 01/12/24 15:20 Pulse Oximetry 98 01/12/24 15:20 Oxygen Delivery Method Room Air 01/12/24 15:20 Temperature 98.5 F 01/12/24 15:20 Pulse Rate 72 01/12/24 15:20 Respiratory Rate 18 01/12/24 15:20 Blood Pressure 181/92 H 01/12/24 15:20 Pulse Oximetry 98 01/12/24 15:20 Oxygen Delivery Method Room Air 01/12/24 15:20 Medical Decision Making Imaging Data US arterial right UE: Attestation: I have reviewed the pertinent imaging results. Radiologist's impression: Patient: CHRISTOPHER TY Facility:?[facility] Patient ID:?[id number] Site Patient ID:?[id number]. Site :?[id number] Study:?US-Extremity Right UEA-01/12/2024 4:20:50 PM Ordering Physician:?TRISHA SMITH Preliminary Report: The right subclavian, axillary, brachial, radial and ulnar arteries are patent. No focal velocity elevation to suggest a high-grade stenosis. No vascular occlusion. Dictated by Bandar Kenney MD @ 01/12/2024 5:07:06 PM Read by:?Bandar Kenney MD @01/12/2024 5:07:15 PM Discharge Plan Discharge Clinical Impression: History of cerebral angiography, Arm pain, right Patient Disposition: Home, Self-Care Condition: Stable Instructions: Arm Pain (ED) Additional Instructions: Continue with the daily aspirin as per Dr. Gutierrez's recommendation. Continue to follow the post angiogram instructions he provided. Follow up with him as planned. Prescriptions: No Action cetirizine [Zyrtec] 10 mg tablet 10 mg PO QDAY PRN hydroxyzine HCl 25 mg tablet 25 mg PO BID PRN albuterol sulfate 90 mcg/actuation HFA aerosol inhaler 2 puff inhalation Q6H PRN magnesium 250 mg tablet 250 mg PO QDAY fluticasone furoate-vilanterol [Breo Ellipta] 200-25 mcg/dose blister with device 1 inh INHALATION Q24H Patient Comments: INHALE 1 PUFF BY MOUTH EVERY DAY ketorolac 10 mg tablet 10 mg PO Q6H PRN (Reason: pain) 5 Days Qty: 20 0RF Patient Comments: at least 2 weeks trazodone 100 mg tablet 100 mg PO QDAY albuterol sulfate 2.5 mg /3 mL (0.083 %) solution for nebulization 2.5 mg inhalation Q4-6H PRNQty: 75 0RF ipratropium-albuterol 0.5 mg-3 mg(2.5 mg base)/3 mL solution for nebulization 3 ml inhalation Q6H PRNQty: 90 0RF Follow Up/Referrals: Keira Irvin MD [Primary Care Provider] - Stand Alone Forms: [employer] Info Instructions
--- NOTE | 2024-01-12 15:43 | US_ITS ---
Patient: CHRISTOPHER TY Facility:?[facility] Patient ID:?[id number] Site Patient ID:?[id number]. Site :?[id number] Study:?US-Extremity Right UEA-01/12/2024 4:20:50 PM Ordering Physician:BAILEY SMITH Final Report: INDICATION: Status post radial artery catheterization. TECHNIQUE: Right upper extremity arterial duplex ultrasound with color Doppler and spectral waveform analysis. COMPARISON: None. FINDINGS: Multiple sonographic pollack-scale images demonstrate no significant atherosclerotic plaque. Right upper extremity arteries peak systolic velocities and waveforms: Subclavian supra: 266 cm/sec, triphasic. Subclavian sub: 121 cm/sec, triphasic. Axillary: 159 cm/sec, triphasic. Brachial proximal: 109 cm/sec, triphasic. Brachial mid: 147 cm/sec, triphasic. Brachial distal: 123 cm/sec, triphasic. Radial proximal: 80 cm/sec, triphasic. Radial distal: 67 cm/sec, triphasic. Ulnar proximal: 43 cm/sec, triphasic. Ulnar distal: 67 cm/sec, triphasic. IMPRESSION: Normal exam. No major occlusions or significant stenoses in the right upper extremity arteries. Dictated by Herman Desir MD @ 01/13/2024 9:24:02 AM Signed by:?Herman Desir MD @01/13/2024 9:24:02 AM (Electronic Signature)
--- OUTSIDE RECORDS SUMMARY | 2024-01-12 15:48 | XMS_ITS | Clinical Summary ---
Author Name Unknown Organization [facility] Address [address] [place] [address] Care Team Providers Care Molded Frames Assembler Name Role Phone Darius Shaw M.D. Primary Care Provider [phone] Source Comments Patient records contain information from all sites at [facility]. For routine questions regarding patient records, call [phone] during business hours, M-F 8:00 AM - 5:00 PM Central Time. Record requests for emergency care only can be directed to [phone] at any time.[facility] Allergies Active Allergy Reactions Criticality Noted [...] week 01/10/2023 How often do you attend denominational or mosque serv ices? Never 01/10/2023 Do you belong to any clubs o r organizations such as denominational groups, unions, fraternal or athletic groups, or [...] Answer Date Recorded PHQ-2 Score 3 01/10/2023 [facility] - Occupational [...] place to sleep or slept in a snf (including now)? No 01/10/2023 Depression Answer Date [...] Asthma Control Test Questionnaire 01/11/2024 023, 04/06/2016 Asthma Management/Exacerbati on Questionnaire (AMQ/AEQ) 01/11/2024 01/10/2023 Mammogram 07/30/2024 07/30/2023, 04/16 (Performed elsewhere), 04/25/2022, [...] 11/07/2011, 10/04/2011 Medical Devices Implanted Type Area Test Preparer Device Identifier Shelf Expiration Date Model / Serial / Lot Mesh Or Patch Mesh or Patch Heart Description:Amplatzer Septal Occluder Asd Closure Device 34mm - Sanders [id number] Implanted:Qty: 1 on 06/20/2006 Septal Defect Occluder Device Other/Legacy - See Implant Description Description:Device Manufactu banner - [facility]. Device Status Text - [id number]. Procedures Procedure Name Priority Date/Time Associated Diagnosis Comments BI BREAST SCREENING BILATERAL WITH TOMOSYNTHESIS RAD - Routine (most inpatients and all outpatients) 07/30/2023 2:38 PM [facility] Screening Mammogram Breast Cancer COLOGUARD Routine 10/28/2022 5:54 PM [facility] Screening Cancer Colon VBG & LYTES CG8+, POCT, B Routine 09/30/2022 10:38 AM [facility] EXTI LIPID PANEL REFLEX TO DIRECT LDL Routine 07/27/2021 8:57 AM [facility] from Last 3 Months or Most Recently Relevant to Health Maintenance Results * BI Breast Screening Bilateral with Tomosynthesis (07/30/2023 2:38 PM [facility]) Anatomical Region Laterality Modality Breast, Breast Imaging RST L OS, Breast Imaging ARZ LOS, Breast Imaging FLA LOS Bilateral Mammography 08/01/2023 12:2 8 PM [facility] Impressions 08/01/2023 12:33 PM [facility] Negative. RECOMMENDATION: ??Annual Screening Mammogram ASSESSMENT: ??BI-RADS: 1: Negative. Narrative 08/01/2023 12:33 PM [facility] EXAM: ??BI BREAST SCREENING BILATERAL WITH TOMOSYNTHESIS [...] ASSESSMENT: BI-RADS: 1: Negative. Darius Shaw M.D. [facility] BI PROCEDURES * Cologuard-Sent Out Lab (10/28/2022 5:54 PM [facility]) Result Negative Negative 11/03/2022 2:48 AM [facility] Comment: NEGATIVE TEST RESULT. A negative [...] Melchor. et al, N Engl J Med 2014;370(14):5510-5903) The normal value (reference range) for this assay is negative. COLOGUARD RE-SCREENING RECOMMENDATION: Periodic colorectal cancer screening is an important part of preventive healthcare for asymptomatic individuals at average risk for colorectal cancer. ??Following a negative Cologuard result, the [place] Cancer Society and U.S. Multi-Society Task Force screening guidelines recommend a Cologuard re-screening interval of 3 years. References: [place] Cancer Society Guideline for Colorectal Cancer Screening: https://www.cancer.org/cancer/giyqb-acrirq-qftblh/detection- diagnosis-staging/acs-recommendations.html.; Ming MARTINEZ, Barbra TREJO, Erna SimsK, Colorectal Cancer Screening: Recommendations for Physicians and Patients from the U.S. Multi-Society Task Force on Colorectal Cancer Screening , Am J Gastroenterology 2017; 112:4977-8426. TEST DESCRIPTION: Composite algorithmic analysis of stool [...] (Yenny Adkins al, N Engl J Med 2014;370(14):8649-6369.) Cologuard may produce a false negative or false positive result (no colorectal cancer or precancerous polyp present at colonoscopy follow up). A negative Cologuard test result does not guarantee the absence of CRC or advanced adenoma (pre-cancer). The current Cologuard screening interval is every 3 years. ([place] Cancer Society and U.S. Multi-Society Task Force). Cologuard performance data in a 10,000 patient pivotal study using colonoscopy as the reference method can be accessed at the following location: www.CloudEndure/results. Additional description of the Cologuard test process, warnings and precautions can be found at www.Ventealaproprieterd.com. Stool (Stool) 10/28/2022 5:5 4 PM [facility] 10/30/2022 1:57 PM [facility] Darius Shwa M.D. LAB BODY FLUIDS AND STOOLS ORDERABLES [facility] [facility] [address] [place] [id number] [employer] [address], [address] [place] [address] * Venous Blood Gas and Electrolytes CG8+, POCT (09/30/2022 10:38 AM [facility]) Sample Site, POCT Venstick 09/30/2022 10:54 AM [facility]M Comment: ----ADDITIONAL INFORMATION---- Performed at the Point of Care pH, Venous, POCT, B 7.43 7.32 - 7.43 09/30/2022 10:54 AM [facility] Comment: ----ADDITIONAL INFORMATION---- Performed at the Point of Care pCO2, Venous, POCT, B 46 41 - 51 mm Hg 09/30/2022 10:54 AM [facility] Comment: ----ADDITIONAL INFORMATION---- Performed at the Point of Care pO2, Venous, POCT, B 25 Not Applicable mm Hg 09/30/2022 10:54 AM [facility] Comment: ----ADDITIONAL INFORMATION---- Performed at the Point of Care Base Excess, Venous, POCT, B 6 Not Applicable mmol/L 09/30/2022 10:54 AM [facility] Comment: ----ADDITIONAL INFORMATION---- Performed at the Point of Care HCO3, Venous, POCT, B 31 Not Applicable mmol/L 09/30/2022 10:54 AM [facility] Comment: ----ADDITIONAL INFORMATION---- Performed at the Point of Care Sodium, POCT, B 140 135 - 145 mmol/L 09/30/2022 10:54 AM [facility] Comment: ----ADDITIONAL INFORMATION---- Performed at the Point of Care Potassium, POCT, B 4.3 3.6 - 5.2 mmol/L 09/30/2022 10:54 AM [facility] Comment: ----ADDITIONAL INFORMATION---- Performed at the Point of Care Calcium, Ionized, POCT, B 5.20 4.65 - 5.30 mg/dL 09/30/2022 10:54 AM [facility] Comment: ----ADDITIONAL INFORMATION---- Performed at the Point of Care Glucose, POCT, B 117 70 - 140 mg/dL 09/30/2022 10:54 AM [facility] Comment: ----ADDITIONAL INFORMATION---- Performed at the Point of Care Hematocrit, POCT, B 44.0 35.5 - 44.9 % 09/30/2022 10:54 AM [facility] Comment: ----ADDITIONAL INFORMATION---- Performed at the Point of Care Blood 09/30/2022 10:3 8 AM [facility] 09/30/2022 10:54 AM [facility] Unknown Provider LAB POCT ORDERABLES - DEVICE POC [facility] [address] [place] [address], [place] [facility] POC [address] [place] [address] from Last 3 Months or Most Recently Relevant to Health Maintenance Advance Directives For more information, please contact: [phone] * Full Code (Latest Code Status on File) Date Activated Date Inactivated Comments 09/30/2022 4:41 PM 10/02/2022 6:08 PM Question Answer Comments Full Code: Discussed Care Teams Molded Frames Assembler Relationship Specialty Start Date End Date Darius Shaw M.D. [place]: [phone] [address] [place] [id number] PCP - General Family Medicine 09/27/22
--- OUTSIDE RECORDS SUMMARY | 2024-01-12 15:48 | XMS_ITS | Continuity of Care Document ---
Author Name Unknown Organization [facility] Address [address] [address] [place] [address] Phone Care Team Providers Care Vehicle Insurance Agent Name Role Phone Unavailable Unavailable Unavailable Procedures Procedure Date Ugi Endo; Dx W/wo Collec Specm Advance Directives Directive Yes / No Effective Date File Name No Information Encounters Encounter Description Practice Location Reason(s) For Visit Diagnoses Date Provider Providers Copied on Encounter [facility], [address] [address], [place], [place], [id number], [place] tel:[phone] [facility] No Information 021 No Information [facility], [address] [address], [facility] [place], [id number], [place] tel:[phone] [facility] No Information 021 No Information [facility], [address] [address], [place], [place], [id number], [place] tel:[phone] No Information Unknown No Information Family History [...]
--- OUTSIDE RECORDS SUMMARY | 2024-01-12 15:48 | XMS_ITS | Referral Summary ---
Author Name Unknown Organization [facility] Address [address] [place] [address] Care Team Providers Care Machine Hose Cutter Name Role Phone Darius Shaw M.D. Primary Care Provider [phone] Source Comments Patient records contain information from all sites at [facility]. For routine questions regarding patient records, call [phone] during business hours, M-F 8:00 AM - 5:00 PM Central Time. Record requests for emergency care only can be directed to [phone] at any time.[facility] Allergies Active Allergy Reactions Criticality Noted [...] week 01/10/2023 How often do you attend mosque or judaism serv ices? Never 01/10/2023 Do you belong to any clubs o r organizations such as mosque groups, unions, fraternal or athletic groups, or [...] Answer Date Recorded PHQ-2 Score 3 01/10/2023 [facility] of Occupat ional Health - Occupational Stress [...] place to sleep or slept in a jail (including now)? No 01/10/2023 Depression Answer Date [...] on file Medical Devices Implanted Type Area Engineering Operator Device Identifier Shelf Expiration Date Model / Serial / Lot Mesh Or Patch Mesh or Patch Heart Description:Amplatzer Septal Occluder Asd Closure Device 34mm - Sanders [id number] Implanted:Qty: 1 on 06/20/2006 Septal Defect Occluder Device Other/Legacy - See Implant Description Description:Device Manufactu [facility]. Device Status Text - [id number]. Procedures Procedure Name Priority Date/Time Associated Diagnosis Comments BI BREAST SCREENING BILATERAL WITH TOMOSYNTHESIS RAD - Routine (most inpatients and all outpatients) 07/30/2023 2:38 PM HAT LINING BLOCKER Screening Mammogram Breast Cancer COLOGUARD Routine 10/28/2022 5:54 PM HAT LINING BLOCKER Screening Cancer Colon VBG & LYTES CG8+, POCT, B Routine 09/30/2022 10:38 AM HAT LINING BLOCKER EXTI LIPID PANEL REFLEX TO DIRECT LDL Routine 07/27/2021 8:57 AM HAT LINING BLOCKER from Last 3 Months or Most Recently Relevant to Health Maintenance Results * BI Breast Screening Bilateral with Tomosynthesis (07/30/2023 2:38 PM HAT LINING BLOCKER) Anatomical Region Laterality Modality Breast, Breast Imaging RST L OS, Breast Imaging ARZ LOS, Breast Imaging FLA LOS Bilateral Mammography 08/01/2023 12:2 8 PM HAT LINING BLOCKER Impressions 08/01/2023 12:33 PM HAT LINING BLOCKER Negative. RECOMMENDATION: ??Annual Screening Mammogram ASSESSMENT: ??BI-RADS: 1: Negative. Narrative 08/01/2023 12:33 PM HAT LINING BLOCKER EXAM: ??BI BREAST SCREENING BILATERAL WITH TOMOSYNTHESIS [...] ASSESSMENT: BI-RADS: 1: Negative. Darius Shaw M.D. [facility] BI PROCEDURES * Cologuard-Sent Out Lab (10/28/2022 5:54 PM HAT LINING BLOCKER) Result Negative Negative 11/03/2022 2:48 AM HAT LINING BLOCKER EXLI Comment: NEGATIVE TEST RESULT. A negative [...] (Yenny Adkins al, N Engl J Med 2014;370(14):1306-4868) The normal value (reference range) for this assay is negative. COLOGUARD RE-SCREENING RECOMMENDATION: Periodic colorectal cancer screening is an important part of preventive healthcare for asymptomatic individuals at average risk for colorectal cancer. ??Following a negative Cologuard result, the [place] Cancer Society and U.S. Multi-Society Task Force screening guidelines recommend a Cologuard re-screening interval of 3 years. References: [place] [employer] Guideline for Colorectal Cancer Screening: https://www.cancer.org/cancer/ljzuf-awtujp-cnqvzv/detection- diagnosis-staging/acs-recommendations.html.; Ming MARTINEZ, Barbra CR, Erna SimsK, Colorectal Cancer Screening: Recommendations for Physicians and Patients from the U.S. Multi-Society Task Force on Colorectal Cancer Screening , Am J Gastroenterology 2017; 112:1939-4232. TEST DESCRIPTION: Composite algorithmic analysis of stool [...] (Yenny Adkins al, N Engl J Med 2014;370(14):3120-8497.) Cologuard may produce a false negative or false positive result (no colorectal cancer or precancerous polyp present at colonoscopy follow up). A negative Cologuard test result does not guarantee the absence of CRC or advanced adenoma (pre-cancer). The current Cologuard screening interval is every 3 years. ([place] Cancer Society and U.S. Multi-Society Task Force). Cologuard performance data in a 10,000 patient pivotal study using colonoscopy as the reference method can be accessed at the following location: www.Meiyou/results. Additional description of the Cologuard test process, warnings and precautions can be found at www.cologuard.com. Stool (Stool) 10/28/2022 5:5 4 PM HAT LINING BLOCKER 10/30/2022 1:57 PM HAT LINING BLOCKER Darius Shaw M.D. LAB BODY FLUIDS AND STOOLS ORDERABLES [facility] [address] [place] [address] EXLI [facility] [address] [facility], [address] [place] [address] * Venous Blood Gas and Electrolytes CG8+, POCT (09/30/2022 10:38 AM HAT LINING BLOCKER) Sample Site, POCT Venstick 09/30/2022 10:54 AM HAT LINING BLOCKER PCSM Comment: ----ADDITIONAL INFORMATION---- Performed at the Point of Care pH, Venous, POCT, B 7.43 7.32 - 7.43 09/30/2022 10:54 AM HAT LINING BLOCKER PCSM Comment: ----ADDITIONAL INFORMATION---- Performed at the Point of Care pCO2, Venous, POCT, B 46 41 - 51 mm Hg 09/30/2022 10:54 AM HAT LINING BLOCKER PCSM Comment: ----ADDITIONAL INFORMATION---- Performed at the Point of Care pO2, Venous, POCT, B 25 Not Applicable mm Hg 09/30/2022 10:54 AM HAT LINING BLOCKER PCSM Comment: ----ADDITIONAL INFORMATION---- Performed at the Point of Care Base Excess, Venous, POCT, B 6 Not Applicable mmol/L 09/30/2022 10:54 AM HAT LINING BLOCKER PCSM Comment: ----ADDITIONAL INFORMATION---- Performed at the Point of Care HCO3, Venous, POCT, B 31 Not Applicable mmol/L 09/30/2022 10:54 AM HAT LINING BLOCKER PCSM Comment: ----ADDITIONAL INFORMATION---- Performed at the Point of Care Sodium, POCT, B 140 135 - 145 mmol/L 09/30/2022 10:54 AM HAT LINING BLOCKER PCSM Comment: ----ADDITIONAL INFORMATION---- Performed at the Point of Care Potassium, POCT, B 4.3 3.6 - 5.2 mmol/L 09/30/2022 10:54 AM HAT LINING BLOCKER PCSM Comment: ----ADDITIONAL INFORMATION---- Performed at the Point of Care Calcium, Ionized, POCT, B 5.20 4.65 - 5.30 mg/dL 09/30/2022 10:54 AM HAT LINING BLOCKER PCSM Comment: ----ADDITIONAL INFORMATION---- Performed at the Point of Care Glucose, POCT, B 117 70 - 140 mg/dL 09/30/2022 10:54 AM HAT LINING BLOCKER PCSM Comment: ----ADDITIONAL INFORMATION---- Performed at the Point of Care Hematocrit, POCT, B 44.0 35.5 - 44.9 % 09/30/2022 10:54 AM HAT LINING BLOCKER PCSM Comment: ----ADDITIONAL INFORMATION---- Performed at the Point of Care Blood 09/30/2022 10:3 8 AM HAT LINING BLOCKER 09/30/2022 10:54 AM HAT LINING BLOCKER Unknown Provider LAB POCT ORDERABLES - DEVICE POC RST [facility] [address] [place] [address], [facility] PCSM [facility] - Pax POC [address] [place] [address] from Last 3 Months or Most Recently Relevant to Health Maintenance Advance Directives For more information, please contact: [phone] * Full Code (Latest Code Status on File) Date Activated Date Inactivated Comments 09/30/2022 4:41 PM 10/02/2022 6:08 PM Question Answer Comments Full Code: Discussed Care Teams Machine Hose Cutter Relationship Specialty Start Date End Date Darius Shaw M.D. [address] [address] PCP - General Family Medicine 09/27/22
--- OUTSIDE RECORDS SUMMARY | 2024-01-12 15:48 | XMS_ITS | Encounter Summary ---
Author Name Unknown Organization [facility] Address [address] [place] [address] Care Team Providers Care Clinical Specialist Name Role Phone Darius Shaw M.D. Primary Care Provider [phone] Encounter Details Date Type Department Care Team (Late st Contact Info) Description 05/12/2013 Historical Ophthalmology RST OPH Jonathan Bonilla M.D. [address] [place] [phone] Social History Tobacco Use Types Packs/Day Years [...] corneal thickness CDM Reports - EYEGEN Id: [id number] Status: Fnl documented in this encounter Plan of Treatment Not on file documented as of this encounter Visit Diagnoses Not on filedocumented in this encounter Additional Health Concerns Infection Onset Date Last Indicated Resolved Time COVID19 Pending 07/11/2020 07/11/2020 07/12/2020 5 :56 PM CDT COVID19 Pending 07/17/2020 07/17/2020 07/17/2020 9 :18 PM MAINTENANCE MECHANIC COVID19 Pending 09/19/2020 09/19/2020 10/09/2020 4 :45 AM MAINTENANCE MECHANIC COVID19 Pending 10/25/2020 10/26/2020 10/27/2020 9 :59 AM MAINTENANCE MECHANIC COVID19 Pending 06/03/2021 06/03/2021 06/03/2021 9 :40 AM CDT COVID19 Pending 06/03/2021 06/03/2021 06/03/2021 1 0:36 PM CDT COVID19 Pending 08/09/2021 08/09/2021 08/11/2021 1 2:57 AM MAINTENANCE MECHANIC COVID19 Pending 06/26/2022 06/26/2022 06/26/2022 5 :47 PM CDT Assessment Noted Time PHQ-9 Depression Total Score: 8 09/18/19 13 7:41 AM MAINTENANCE MECHANIC documented as of this encounter Care Teams Clinical Specialist Relationship Specialty Start Date End Date Darius Shaw M.D. [address] [address] PCP - General Family Medicine 09/27/22 documented as of this encounter
--- OUTSIDE RECORDS SUMMARY | 2024-01-12 15:48 | XMS_ITS ---
Author Name Unknown Organization [facility] Address [address] [place] [address] Care Team Providers Care Java Mobile Developer Name Role Phone Unavailable Unavailable Unavailable Surgery Details Not on file Complications Check Surgery Details section. Procedure Estimated Blood Loss Check Surgery Details section. Procedure Findings Check Surgery Details section. Procedure Specimens Taken Check Surgery Details section.
--- OUTSIDE RECORDS SUMMARY | 2024-01-12 15:49 | XMS_ITS | Referral Summary ---
Author Name Unknown Organization [facility] Address [address] [place] [address] Care Team Providers Care Flooring Salesperson Name Role Phone Yung Madrigal MD Unavailable Unavailable Winston Villatoro OD Unavailable [phone] Denise Woodson Ra, APRN DOCTOR OF PODIATRY Unavailable [phone] Denise Woodson Ra, APRN DOCTOR OF PODIATRY Primary Care Provid er Allergies Active Allergy [...] (FLONASE) 50 MCG/ACT nasal sprayIndications:Chr onic rhinitis Tolstoy 2 sprays into both nostrils daily 16 [...] Comments Blood Pressure 108/68 07/27/2021 8:28 AM CENTURA TECHNICAL LEAD SENIOR DEVELOPER Pulse 68 07/27/2021 8:28 AM CENTURA TECHNICAL LEAD SENIOR DEVELOPER Temperature 36.9 ??C (98.4 ??F) 07/27/2021 8:28 AM CS T Respiratory Rate 12 07/27/2021 8:28 AM CENTURA TECHNICAL LEAD SENIOR DEVELOPER Oxygen Saturation 97% 07/27/2021 8:28 AM CENTURA TECHNICAL LEAD SENIOR DEVELOPER Inhaled Oxygen Concentration - - Weight 99.3 kg (219 lb) 07/27/2021 8:28 AM CENTURA TECHNICAL LEAD SENIOR DEVELOPER Height 174.6 cm (5' 8.75) 02/08/2021 10:22 AM C DT Body Mass Index 32.58 02/08/2021 10:22 AM CDT Plan of Treatment Upcoming Encounters Date Type Department Care Team (Late st Contact Info) Description 01/15/2024 3:30 PM CD[facility] [address] [place] [address] Jacque Alexis, BARRERA DOCTOR OF PODIATRY [address] [place], [place] [id number] Procedures Procedure Name Priority Date/Time Associated Diagnosis Comments MA SCREENING BILATERAL W/ MAT Routine 04/25/2022 5:03 PM CDT Visit for screening mammogram COMPREHENSIVE METABOLIC PANEL Routine 07/27/2021 8:57 AM CENTURA TECHNICAL LEAD SENIOR DEVELOPER Routine general medical examination at a [facility] care facility CARDIOVASCULAR SCREENING; LDL GOAL LESS THAN 160 LIPID REFLEX TO DIRECT LDL PANEL Routine 07/27/2021 8:57 AM CENTURA TECHNICAL LEAD SENIOR DEVELOPER CARDIOVASCULAR SCREENING; LDL GOAL LESS THAN 160 [...] patient. JEVON HOWELL MD Denise Woodson APRN DOCTOR OF PODIATRY IMG MAMMOGRA PHY ORDERABLES * (ABNORMAL) Lipid panel reflex to direct LDL Fasting (07/27/2021 8:57 AM CENTURA TECHNICAL LEAD SENIOR DEVELOPER) Cholesterol 202(H) <200 mg/dL 07/28/2021 10:12 AM CENTURA TECHNICAL LEAD SENIOR DEVELOPER [facility] Triglycerides 91 <150 mg/dL 07/28/2021 10:12 AM CENTURA TECHNICAL LEAD SENIOR DEVELOPER [facility] Direct Measure HDL 56 >=50 mg/dL 07/28/2021 10:12 AM CENTURA TECHNICAL LEAD SENIOR DEVELOPER [facility] LDL Cholesterol Calculated 128(H) <=100 mg/dL 07/28/2021 10:12 AM CENTURA TECHNICAL LEAD SENIOR DEVELOPER [facility] Non HDL Cholesterol 146(H) <130 mg/dL 07/28/2021 10:12 AM CENTURA TECHNICAL LEAD SENIOR DEVELOPER [facility] Patient Fasting > 8hrs? Yes 07/28/2021 10:12 AM CENTURA TECHNICAL LEAD SENIOR DEVELOPER [facility] Blood STRUCTURE OF RIGHT UPPER LIMB / Unknown Venipuncture / Unknown 07/27/2021 8:57 AM CENTURA TECHNICAL LEAD SENIOR DEVELOPER 07/27/2021 8:57 AM CENTURA TECHNICAL LEAD SENIOR DEVELOPER Narrative [facility] - 07/28/2021 10:12 AM CENTURA TECHNICAL LEAD SENIOR DEVELOPER Cholesterol Desirable: ??<200 mg/dL Triglycerides Normal: ??Less [...] equal to 220 mg/dL Denise Woodson APRN DOCTOR OF PODIATRY LAB - BLOOD ORDERABLES [facility] [address] Lab (no room number, 1st floor of clinic) [place] [address], [facility] [phone] * Comprehensive metabolic panel (BMP + Alb, Alk Phos, ALT, AST, Total. Bili, TP) (07/27/2021 8:57 AM CENTURA TECHNICAL LEAD SENIOR DEVELOPER) Sodium 139 133 - 144 mmol/L 07/28/2021 10:12 AM CENTURA TECHNICAL LEAD SENIOR DEVELOPER [facility] Potassium 4.0 3.4 - 5.3 mmol/L 07/28/2021 10:12 AM CENTURA TECHNICAL LEAD SENIOR DEVELOPER [facility] Chloride 105 94 - 109 mmol/L 07/28/2021 10:12 AM CENTURA TECHNICAL LEAD SENIOR DEVELOPER [facility] Carbon Dioxide (CO2) 26 20 - 32 mmol/L 07/28/2021 10:12 AM CENTURA TECHNICAL LEAD SENIOR DEVELOPER [facility] Anion Gap 8 3 - 14 mmol/L 07/28/2021 10:12 AM CENTURA TECHNICAL LEAD SENIOR DEVELOPER [facility] Urea Nitrogen 20 7 - 30 mg/dL 07/28/2021 10:12 AM CENTURA TECHNICAL LEAD SENIOR DEVELOPER [facility] Creatinine 0.74 0.52 - 1.04 mg/dL 07/28/2021 10:12 AM CENTURA TECHNICAL LEAD SENIOR DEVELOPER [facility] Calcium 8.8 8.5 - 10.1 mg/dL 07/28/2021 10:12 AM CENTURA TECHNICAL LEAD SENIOR DEVELOPER [facility] Glucose 95 70 - 99 mg/dL 07/28/2021 10:12 AM CENTURA TECHNICAL LEAD SENIOR DEVELOPER [facility] Alkaline Phosphatase 67 40 - 150 U/L 07/28/2021 10:12 AM CENTURA TECHNICAL LEAD SENIOR DEVELOPER [facility] AST 8 0 - 45 U/L 07/28/2021 10:12 AM CENTURA TECHNICAL LEAD SENIOR DEVELOPER [facility] ALT 18 0 - 50 U/L 07/28/2021 10:12 AM CENTURA TECHNICAL LEAD SENIOR DEVELOPER [facility] Protein Total 7.6 6.8 - 8.8 g/dL 07/28/2021 10:12 AM CENTURA TECHNICAL LEAD SENIOR DEVELOPER [facility] Albumin 3.4 3.4 - 5.0 g/dL 07/28/2021 10:12 AM CENTURA TECHNICAL LEAD SENIOR DEVELOPER [facility] Bilirubin Total 0.5 0.2 - 1.3 mg/dL 07/28/2021 10:12 AM CENTURA TECHNICAL LEAD SENIOR DEVELOPER [facility] GFR Estimate >90 >60 mL/min/1.7 3m2 07/28/2021 10:12 AM CENTURA TECHNICAL LEAD SENIOR DEVELOPER [facility] Comment:As of March 26, 2021, eGFR is calculated by the CKD-EPI creatinine equation, without race adjustment. eGFR can be influenced by muscle mass, exercise, and diet. The reported eGFR is an estimation only and is only applicable if the renal function is stable. Blood STRUCTURE OF RIGHT UPPER LIMB / Unknown Venipuncture / Unknown 07/27/2021 8:57 AM CENTURA TECHNICAL LEAD SENIOR DEVELOPER 07/27/2021 8:57 AM CENTURA TECHNICAL LEAD SENIOR DEVELOPER Denise Woodson APRN DOCTOR OF PODIATRY LAB - BLOOD ORDERABLES [facility] [address] Lab (no room number, 1st floor of clinic) [place] [address], [facility] [phone] from Last 3 Months or Most Recently Relevant to Health Maintenance Care Teams Flooring Salesperson Relationship Specialty Start Date End Date Yung Madrigal MD RETIRED PCP - Orthopaedics Orthopedics 08/26/12 Winston Villatoro OD [facility] [address] [facility] [address] [place] [address] PCP - Ophthalmology Ophthalmology 02/11/13 Denise Woodson Ra, APRN DOCTOR OF PODIATRY [address] [place] [address] PCP - General Family Practice 09/21/20 Denise Woodson Ra, APRN DOCTOR OF PODIATRY [address] [place] [address] Assigned PCP 07/17/20
--- OUTSIDE RECORDS SUMMARY | 2024-01-12 15:49 | XMS_ITS | Encounter Summary ---
Author Name Unknown Organization [facility] Address [address] [place] [address]. [place] [address] Care Team Providers Care Oncology Coordinator Name Role Phone Yung Madrigal MD Unavailable Unavailable Winston Villatoro OD Unavailable Denise Woodson Ra, APRN DRAFTER STRUCTURAL Unavailable Denise Woodson Ra, APRN DRAFTER STRUCTURAL Primary Care Provid er Reason for Visit * Reason Onset Date Comments MyChart Communication 06/08/2021 Abdominal pain Encounter Details Date Type Department Care Team (Late Contact Info) Description 06/08/2021 MyC Medical Advice [facility] [place] [address] [place] [address] Denise Woodson Ra, APRN DRAFTER STRUCTURAL [address] [place] [address] MyChart Communication (Abdominal pain) Social [...] Upcoming Encounters Date Type Department Care Team ([facility] Contact Info) Description 01/15/2024 3:30 PM CDT Office Visit [facility] [place] [address] [place] [address] Jacque Alexis APRN DRAFTER STRUCTURAL [address] [place] [address] documented as of this encounter Visit Diagnoses Not on filedocumented in this encounter Additional Health Concerns Assessment Noted Time PHQ-9 Depression Total Score: 0 01/05/20 21 9:31 AM CDT documented as of this encounter Care Teams Oncology Coordinator Relationship Specialty Start Date End Date Yung Madrigal MD RETIRED PCP - Orthopaedics Orthopedics 08/26/12 Winston Villatoro OD [facility] [place] [address] [facility] [address] [place] [address] PCP - Ophthalmology Ophthalmology 02/11/13 Denise Woodson Ra, APRN DRAFTER STRUCTURAL [address] [place] [address] PCP - General Family Practice 09/21/20 Denise Woodson Ra, APRN DRAFTER STRUCTURAL [address] [place] [address] Assigned PCP 07/17/20 documented as of this encounter
--- OUTSIDE RECORDS SUMMARY | 2024-01-12 15:49 | XMS_ITS | Encounter Summary ---
Author Name Unknown Organization [facility] Address [address] [place] [address] Care Team Providers Care Nursing Staff Development Coordinator Name Role Phone Yung Madrigal MD Unavailable Unavailable Winston Villatoro OD Unavailable [phone] Denise Woodson Ra, APRN COURT ORDERLY Unavailable + [phone] Denise Woodson Ra, APRN COURT ORDERLY Primary Care Provid er Encounter Details Date Type Department Care Team (Late Contact Info) Description 12/30/2020 [facility] [address] [place] [address] Jessica Phipps, BIBI Social History [...] CDT Office Visit [facility] [place] [address] [place] [address] [place] [address] [place] [address] documented as of this encounter Visit Diagnoses Not on filedocumented in this encounter Additional Health Concerns Assessment Noted Time PHQ-9 Depression Total Score: 0 06/15/20 19 7:09 PM CDT documented as of this encounter Care Teams Nursing Staff Development Coordinator Relationship Specialty Start Date End Date Yung Madrigal MD RETIRED PCP - Orthopaedics Orthopedics 08/26/12 Winston Vilaltoro OD [facility] [place] [address] [facility] [address] [place] [address] PCP - Ophthalmology Ophthalmology 02/11/13 Denise Woodson Ra, APRN COURT ORDERLY [address] [place] [address] PCP - General Family Practice 09/21/20 Denise Woodson Ra, APRN COURT ORDERLY [address] [place] [address] Assigned PCP 07/17/20 documented as of this encounter
--- OUTSIDE RECORDS SUMMARY | 2024-01-12 15:49 | XMS_ITS | Encounter Summary ---
Author Name Unknown Organization [facility] Address [address] [place] [address] Care Team Providers Care Figure Clerk Name Role Phone Yung Madrigal MD Unavailable Unavailable Winston Villatoro OD Unavailable [phone] Denise Woodson Ra, APRN SHUTTLE BUS DRIVER Unavailable + [phone] Denise Woodson Ra, APRN SHUTTLE BUS DRIVER Primary Care Provid er Encounter Details Date Type Department Care Team (Late Contact Info) Description 01/22/2022 MyC [facility] [address] [place] [address] Angelo Escobar Social History Tobacco [...] [facility] [address] [place] [address] Jacque Alexis APRN SHUTTLE BUS DRIVER [address] [place] [address] documented as of this encounter Visit Diagnoses Not on filedocumented in this encounter Additional Health Concerns Assessment Noted Time PHQ-9 Depression Total Score: 0 06/23/20 21 4:11 PM CDT documented as of this encounter Care Teams Figure Clerk Relationship Specialty Start Date End Date Yung Madrigal MD RETIRED PCP - Orthopaedics Orthopedics 08/26/12 Winston Villatoro OD [facility] [place] [address] [facility] [address] [place] [address] PCP - Ophthalmology Ophthalmology 02/11/13 Denise Woodson Ra, APRN SHUTTLE BUS DRIVER [address] [facility] [place] [address] PCP - General Family Practice 09/21/20 Denise Woodson Ra, APRN SHUTTLE BUS DRIVER [address] [facility] [address] Assigned PCP 07/17/20 documented as of this encounter
--- OUTSIDE RECORDS SUMMARY | 2024-01-12 15:49 | XMS_ITS | Encounter Summary ---
Author Name Unknown Organization [facility] Address [address] [place] [address] Care Team Providers Care City Designer Name Role Phone Timmy Perez MD Unavailable Unavailable Yung Madrigal MD Unavailable Unavailable Winston Villatoro OD Unavailable [phone] Apple Sykes MD Primary Care Provider [phone] Westley Bates MD Unavailable [phone] Alessandra Cabrales APRN CORN DETASSELER Primary Car e Provider Serum, Clara Garland MD Primary Care Provider Serum, Clara Garland MD Unavailable [phone] Serum, Clara Garland MD Unavailable [phone] Denise Woodson Ra, APRN CORN DETASSELER Unavailable + [phone] Denise Woodson Ra, APRN, CNP Primary Care Provid er Encounter Details Date Type Department Care Team (Late st Contact Info) Description 05/19/2013 MyC Medical Advice [facility] Orthopedics [address] [place] [phone] Yung Madrigal MD RETIRED Social History Tobacco [...] Description 01/15/2024 3:30 PM CDT Office Visit [facility] [address] [place] [address] Jacque Alexis APRN CORN DETASSELER [address] [place] [address] documented as of this encounter Visit Diagnoses Not on filedocumented in this encounter Care Teams City Designer Relationship Specialty Start Date End Date Timmy Perez MD PCP - Obstetrics/Gynecology 03/02/08 08/07/15 Yung Madrigal MD RETIRED PCP - Orthopaedics Orthopedics 08/26/12 Winston Villatoro OD [facility] [place] [address] [place] [address] PCP - Ophthalmology Ophthalmology 02/11/13 Apple Sykes MD [facility] [place] [address] [place] [address] PCP - General Family Practice 05/04/13 10/25/16 Westley Bates MD XXX RETIRED XXX [address] [place] [address] PCP - ENT Otolaryngology 05/14/13 07/28/18 Alessandra Cabrales APRN CORN DETASSELER [address] [facility] [place] [address] PCP - General Nurse Practitioner 10/26/16 02/06/17 Clara Cornell MD [address] [facility] [place] [address] PCP - General Internal Medicine 02/07/17 09/20/20 Clara Cornell MD [address] [place] [address] PCP - Assigned PCP 01/17/17 11/18/18 Denise Woodson Ra, APRN CORN DETASSELER [address] [place] [address] PCP - General Family Practice 09/21/20 Clara [place] MD [address] [place] [address] Assigned PCP 01/17/17 07/16/20 Denise Woodson Ra, APRN CORN DETASSELER [address] [place] [address] Assigned PCP 07/17/20 documented as of this encounter
--- OUTSIDE RECORDS SUMMARY | 2024-01-12 15:49 | XMS_ITS | Encounter Summary ---
Author Name Unknown Organization [facility] Address [address] [place] [address]. [place] [address] Care Team Providers Care Fire Engineer Name Role Phone Yung Madrigal MD Unavailable Unavailable Winston Villatoro OD Unavailable [phone] Denise Woodson Ra, APRN BASE WAD OPERATOR ADJUSTER Unavailable Denise Woodson Ra, APRN BASE WAD OPERATOR ADJUSTER Primary Care Provid er Reason for Visit * Reason Onset Date Comments Medication Request 04/20/2021 escitalopram (LEXAPRO) 10 MG tablet Encounter Details Date Type Department Care Team (Late st Contact Info) Description 04/20/2021 MyC Medical Advice [facility] [address] [place] [address] Denise Woodson Ra, APRN BASE WAD OPERATOR ADJUSTER [address] [place] [address] Medication Request (escitalopram (LEXAPRO)... Social [...] Description 01/15/2024 3:30 PM CDT [facility] [address] [place] [address] Jacque Alexis APRN BASE WAD OPERATOR ADJUSTER [address] [place] [address] documented as of this encounter Visit Diagnoses Diagnosis Generalized anxiety disorder Mild recurrent major depression (H24) Major depressive disorder, recurrent episode, mild documented in this encounter Additional Health Concerns Assessment Noted Time PHQ-9 Depression Total Score: 0 01/05/20 21 9:31 AM CDT documented as of this encounter Care Teams Fire Engineer Relationship Specialty Start Date End Date Yung Madrigal MD RETIRED PCP - Orthopaedics Orthopedics 08/26/12 Winston Villatoro OD [facility] [place] [address] [facility] [address] [place] [address] PCP - Ophthalmology Ophthalmology 02/11/13 Denise Woodson Ra, APRN BASE WAD OPERATOR ADJUSTER [address] [place] [address] PCP - General Family Practice 09/21/20 Denise Woodson Ra, APRN BASE WAD OPERATOR ADJUSTER [address] [place] [address] Assigned PCP 07/17/20 documented as of this encounter
--- OUTSIDE RECORDS SUMMARY | 2024-01-12 15:49 | XMS_ITS | Encounter Summary ---
Author Name Unknown Organization [facility] Address [address] [place] [address] Care Team Providers Care Electrotype Caster Name Role Phone Timmy Perez MD Unavailable Unavailable Yung Madrigal MD Unavailable Unavailable Winston Villatoro OD Unavailable [phone] Apple Sykes MD Primary Care Provider [phone] Westley Bates MD Unavailable Alessandra Cabrales APRN PUBLIC SERVICE ADMINISTRATOR Primary Car e Provider Serum, Clara Garland MD Primary Care Provider Serum, Clara Garland MD Unavailable [phone] Serum, Clara Garland MD Unavailable [phone] Denise Woodson Ra, APRN PUBLIC SERVICE ADMINISTRATOR Unavailable + [phone] Denise Woodson Ra, APRN, CNP Primary Care Provid er Encounter Details Date Type Department Care Team (Late st Contact Info) Description 05/06/2013 MyC Medical Advice [facility] [address] [place] [address] Apple Sykes MD [address] [place] [address] Social History Tobacco Use Types Packs/Day Years [...] Description 01/15/2024 3:30 PM CDT Office Visit [facility] [address] [place] [address] Jacque Alexis APRN PUBLIC SERVICE ADMINISTRATOR [address] [place] [address] documented as of this encounter Visit Diagnoses Not on filedocumented in this encounter Care Teams Electrotype Caster Relationship Specialty Start Date End Date Timmy Perez MD PCP - Obstetrics/Gynecology 03/02/08 08/07/15 Yung Madrigal MD RETIRED PCP - Orthopaedics Orthopedics 08/26/12 Winston Villatoro, OD [facility] [place] [address] [place] [address] PCP - Ophthalmology Ophthalmology 02/11/13 Apple Sykes MD [facility] [place] [address] [place] [address] PCP - General Family Practice 05/04/13 10/25/16 Westley Bates MD XXX RETIRED XXX [address] [facility] [address] [address] [place] [address] PCP - ENT Otolaryngology 05/14/13 07/28/18 Alessandra Cabrales APRN PUBLIC SERVICE ADMINISTRATOR [address] [facility] [place] [address] PCP - General Nurse Practitioner 10/26/16 02/06/17 Clara Cornell MD [address] [facility] [place] [address] PCP - General Internal Medicine 02/07/17 09/20/20 Clara Cornell MD [address] [place] [address] PCP - Assigned PCP 01/17/17 11/18/18 Denise Woodson Ra, APRN PUBLIC SERVICE ADMINISTRATOR [address] [place] [address] PCP - General Family Practice 09/21/20 Clara Cornell MD [address] [place] [address] Assigned PCP 01/17/17 07/16/20 Denise Woodson Ra, APRN PUBLIC SERVICE ADMINISTRATOR [address] [place] [address] Assigned PCP 07/17/20 documented as of this encounter
--- OUTSIDE RECORDS SUMMARY | 2024-01-12 15:49 | XMS_ITS | Clinical Summary ---
Author Name Unknown Organization [facility] Address [address] [place] [address] Care Team Providers Care Master Black Belt Name Role Phone Yung Madrigal MD Unavailable Unavailable Winston Villatoro OD Unavailable [phone] Denise Woodson Ra, APRN NET MENDER Unavailable [phone] Denise Woodson Ra, APRN NET MENDER Primary Care Provid er Allergies Active Allergy [...] (FLONASE) 50 MCG/ACT nasal sprayIndications:Chr onic rhinitis [place] 2 sprays into both nostrils daily 16 [...] Comments Blood Pressure 108/68 07/27/2021 8:28 AM RUBBER COVERING MACHINE OPERATOR Pulse 68 07/27/2021 8:28 AM RUBBER COVERING MACHINE OPERATOR Temperature 36.9 ??C (98.4 ??F) 07/27/2021 8:28 AM CS T Respiratory Rate 12 07/27/2021 8:28 AM RUBBER COVERING MACHINE OPERATOR Oxygen Saturation 97% 07/27/2021 8:28 AM RUBBER COVERING MACHINE OPERATOR Inhaled Oxygen Concentration - - Weight 99.3 kg (219 lb) 07/27/2021 8:28 AM RUBBER COVERING MACHINE OPERATOR Height 174.6 cm (5' 8.75) 02/08/2021 10:22 AM C DT Body Mass Index 32.58 02/08/2021 10:22 AM CDT Plan of Treatment Upcoming Encounters Date Type Department Care Team (Late st Contact Info) Description 01/15/2024 3:30 PM CDT Office Visit [facility] [address] [place] [address] Jacque Alexis APRN NET MENDER [address] [place] [address] Health Maintenance Due Date Last Done Comments [...] COMPREHENSIVE METABOLIC PANEL Routine 07/27/2021 8:57 AM RUBBER COVERING MACHINE OPERATOR Routine general medical examination at a health care facility CARDIOVASCULAR SCREENING; LDL GOAL LESS THAN 160 LIPID REFLEX TO DIRECT LDL PANEL Routine 07/27/2021 8:57 AM RUBBER COVERING MACHINE OPERATOR CARDIOVASCULAR SCREENING; LDL GOAL LESS THAN [...] patient. IRMA HOWELL MD Denise Woodson APRN NET MENDER IMG MAMMOGRA PHY ORDERABLES * (ABNORMAL) Lipid panel reflex to direct LDL Fasting (07/27/2021 8:57 AM RUBBER COVERING MACHINE OPERATOR) Cholesterol 202(H) <200 mg/dL 07/28/2021 10:12 AM RUBBER COVERING MACHINE OPERATOR [facility] Triglycerides 91 <150 mg/dL 07/28/2021 10:12 AM RUBBER COVERING MACHINE OPERATOR [facility] Direct Measure HDL 56 >=50 mg/dL 07/28/2021 10:12 AM RUBBER COVERING MACHINE OPERATOR [facility] LDL Cholesterol Calculated 128(H) <=100 mg/dL 07/28/2021 10:12 AM RUBBER COVERING MACHINE OPERATOR [facility] Non HDL Cholesterol 146(H) <130 mg/dL 07/28/2021 10:12 AM RUBBER COVERING MACHINE OPERATOR [facility] Patient Fasting > 8hrs? Yes 07/28/2021 10:12 AM RUBBER COVERING MACHINE OPERATOR [facility] Blood STRUCTURE OF RIGHT UPPER LIMB / Unknown Venipuncture / Unknown 07/27/2021 8:57 AM RUBBER COVERING MACHINE OPERATOR 07/27/2021 8:57 AM RUBBER COVERING MACHINE OPERATOR Narrative [facility] - 07/28/2021 10:12 AM RUBBER COVERING MACHINE OPERATOR Cholesterol Desirable: ??<200 mg/dL Triglycerides Normal: [...] equal to 220 mg/dL Denise Woodson APRN NET MENDER LAB - BLOOD ORDERABLES OX [facility] [address] Lab (no room number, 1st floor of clinic) [place] [address], [facility] [phone] * Comprehensive metabolic panel (BMP + Alb, Alk Phos, ALT, AST, Total. Bili, TP) (07/27/2021 8:57 AM RUBBER COVERING MACHINE OPERATOR) Sodium 139 133 - 144 mmol/L 07/28/2021 10:12 AM RUBBER COVERING MACHINE OPERATOR [facility] Potassium 4.0 3.4 - 5.3 mmol/L 07/28/2021 10:12 AM RUBBER COVERING MACHINE OPERATOR [facility] Chloride 105 94 - 109 mmol/L 07/28/2021 10:12 AM RUBBER COVERING MACHINE OPERATOR [facility] Carbon Dioxide (CO2) 26 20 - 32 mmol/L 07/28/2021 10:12 AM RUBBER COVERING MACHINE OPERATOR [facility] Anion Gap 8 3 - 14 mmol/L 07/28/2021 10:12 AM RUBBER COVERING MACHINE OPERATOR [facility] Urea Nitrogen 20 7 - 30 mg/dL 07/28/2021 10:12 AM RUBBER COVERING MACHINE OPERATOR [facility] Creatinine 0.74 0.52 - 1.04 mg/dL 07/28/2021 10:12 AM RUBBER COVERING MACHINE OPERATOR [facility] Calcium 8.8 8.5 - 10.1 mg/dL 07/28/2021 10:12 AM RUBBER COVERING MACHINE OPERATOR [facility] Glucose 95 70 - 99 mg/dL 07/28/2021 10:12 AM RUBBER COVERING MACHINE OPERATOR [facility] Alkaline Phosphatase 67 40 - 150 U/L 07/28/2021 10:12 AM RUBBER COVERING MACHINE OPERATOR [facility] AST 8 0 - 45 U/L 07/28/2021 10:12 AM RUBBER COVERING MACHINE OPERATOR [facility] ALT 18 0 - 50 U/L 07/28/2021 10:12 AM RUBBER COVERING MACHINE OPERATOR [facility] Protein Total 7.6 6.8 - 8.8 g/dL 07/28/2021 10:12 AM RUBBER COVERING MACHINE OPERATOR [facility] Albumin 3.4 3.4 - 5.0 g/dL 07/28/2021 10:12 AM RUBBER COVERING MACHINE OPERATOR [facility] Bilirubin Total 0.5 0.2 - 1.3 mg/dL 07/28/2021 10:12 AM RUBBER COVERING MACHINE OPERATOR [facility] GFR Estimate >90 >60 mL/min/1.7 3m2 07/28/2021 10:12 AM RUBBER COVERING MACHINE OPERATOR [facility] Comment:As of March 26, 2021, eGFR is calculated by the CKD-EPI creatinine equation, without race adjustment. eGFR can be influenced by muscle mass, exercise, and diet. The reported eGFR is an estimation only and is only applicable if the renal function is stable. Blood STRUCTURE OF RIGHT UPPER LIMB / Unknown Venipuncture / Unknown 07/27/2021 8:57 AM RUBBER COVERING MACHINE OPERATOR 07/27/2021 8:57 AM RUBBER COVERING MACHINE OPERATOR Denise Woodson APRN NET MENDER LAB - BLOOD ORDERABLES OX LABORATORY [facility] [address] Lab (no room number, 1st floor of clinic) [place] [address], [facility] [phone] from Last 3 Months or Most Recently Relevant to Health Maintenance Care Teams Master Black Belt Relationship Specialty Start Date End Date Yung Madrigal MD RETIRED PCP - Orthopaedics Orthopedics 08/26/12 Winston Villatoro OD [facility] [place] [address] [facility] [address] [place] [address] PCP - Ophthalmology Ophthalmology 02/11/13 Denise Woodson Ra, APRN NET MENDER [address] [place] [address] PCP - General Family Practice 09/21/20 Denise Woodson Ra, APRN NET MENDER [address] [place] [address] Assigned PCP 07/17/20
--- OUTSIDE RECORDS SUMMARY | 2024-01-12 15:49 | XMS_ITS | Encounter Summary ---
Author Name Unknown Organization [facility] Address [address] [place] [address]. [place] [address] Care Team Providers Care Director Corporate Security Name Role Phone Yung Madrigal MD Unavailable Unavailable Winston Villatoro OD Unavailable [phone] Denise Woodson Ra, APRN STEAM CLEANER Unavailable + [phone] Denise Woodson Ra, APRN STEAM CLEANER Primary Care Provid er Reason for Visit * Reason Comments Medication Refill Encounter Details Date Type Department Care Team (Late st Contact Info) Description 02/19/2022 Refill [facility] [address] [place] [address] Denise Woodson Ra, APRN STEAM CLEANER [address] [place] [address] Medication Refill Social History Tobacco [...] Description 01/15/2024 3:30 PM CDT Office Visit [facility] [address] [facility] [place] [address] Jacque Alexis APRN STEAM CLEANER [address] [place] [address] documented as of this encounter Visit Diagnoses Diagnosis Moderate persistent asthma without complication Unspecified asthma documented in this encounter Additional Health Concerns Assessment Noted Time PHQ-9 Depression Total Score: 0 06/23/20 21 4:11 PM CDT documented as of this encounter Care Teams Director Corporate Security Relationship Specialty Start Date End Date Yung Madrigal MD RETIRED PCP - Orthopaedics Orthopedics 08/26/12 Winston Villatoro OD [facility] [address] [facility] [address] [place] [address] PCP - Ophthalmology Ophthalmology 02/11/13 Denise Woodson Ra, APRN STEAM CLEANER [address] [place] [address] PCP - General Family Practice 09/21/20 Denise Woodson Ra, APRN STEAM CLEANER [address] [place] [address] Assigned PCP 07/17/20 documented as of this encounter
--- OUTSIDE RECORDS SUMMARY | 2024-01-12 15:49 | XMS_ITS | Encounter Summary ---
Author Name Unknown Organization [facility] Address [address] [place] [address] Care Team Providers Care Corporate Intern Name Role Phone Timmy Perez MD Unavailable Unavailable Yung Madrigal MD Unavailable Unavailable Winston Villatoro OD Unavailable [phone] Apple Sykes MD Primary Care Provider [phone] Westley Bates MD Unavailable [phone] Alessandra Cabrales APRN SHOE COBBLER Primary Car e Provider Serum, Clara Garland MD Primary Care Provider Serum, Clara Garland MD Unavailable [phone] Serum, Clara Garland MD Unavailable [phone] Denise Woodson Ra, APRN SHOE COBBLER Unavailable + [phone] Denise Woodson Ra, APRN, CNP Primary Care Provid er Encounter Details Date Type Department Care Team (Late st Contact Info) Description 05/26/2013 MyC Medical Advice [facility] [place] Orthopedics [address] [place] [phone] Yung Madrigal MD RETIRED Social History Tobacco [...] Description 01/15/2024 3:30 PM CDT Office Visit [facility] [address] [place] [address] Jacque Alexis APRN SHOE COBBLER [address] [place] [address] documented as of this encounter Visit Diagnoses Not on filedocumented in this encounter Care Teams Corporate Intern Relationship Specialty Start Date End Date Timmy Perez MD PCP - Obstetrics/Gynecology 03/02/08 08/07/15 Yung Madrigal MD RETIRED PCP - Orthopaedics Orthopedics 08/26/12 Winston Villatoro OD [facility] [place] [address] [place] [address] PCP - Ophthalmology Ophthalmology 02/11/13 Apple Sykes MD [facility] [place] [address] [place] [address] PCP - General Family Practice 05/04/13 10/25/16 Westley Bates MD XXX RETIRED XXX [address] [place] [address] PCP - ENT Otolaryngology 05/14/13 07/28/18 Alessandra Cabrales APRN SHOE COBBLER [address] [facility] [place] [address] PCP - General Nurse Practitioner 10/26/16 02/06/17 Clara Cornell MD [address] [facility] [place] [address] PCP - General Internal Medicine 02/07/17 09/20/20 Clara Cornell MD [address] [place] [address] PCP - Assigned PCP 01/17/17 11/18/18 Denise Woodson Ra, APRN SHOE COBBLER [address] [place] [address] PCP - General Family Practice 09/21/20 Clara Cornell MD [address] [place] [address] Assigned PCP 01/17/17 07/16/20 Denise Woodson Ra, APRN SHOE COBBLER [address] [place] [address] Assigned PCP 07/17/20 documented as of this encounter
--- OUTSIDE RECORDS SUMMARY | 2024-01-12 15:49 | XMS_ITS | Clinical Summary ---
Author Name Unknown Organization [facility] [place] [address] Care Team Providers Care Servicer Travel Trailers Name Role Phone Keira Irvin MD Primary [...] durable medical equipment (DME)Indications: Plantar fasciitis, bilateral [id number] Plantar Fasciitis, night splint, Large 1 Each [...] Department Care Team Description 01/10/2024 Orders Only [facility] [address] [place] [address] Timoteo Gutierrez MD <No scans attached> 01/10/2024 Telephone [facility] [address] [place] [address] Aby Saxena NP Follow Up 01/09/2024 1:20 PM CDT - 01/09/2024 3:30 PM CDT Hospital Encounter [facility] [address] [place] [address] Timoteo Gutierrez MD AVF (arteriovenous fistula) (HC) (Primary Dx); Tinnitus, left ear; Headache Discharge Disposition: Home Self Care 01/09/2024 Travel from Last 3 Months Immunizations Name Administration Dates Next Due COVID-19 vaccine ([employer] 30mcg/0.3mL) CORKY ROSARIO 07/07/2021 Hepatitis B, Unspecified [...] REFLEX MEASURED LDL Routine 08/03/2011 10:31 AM TOOLING SUPERVISOR Screening for other and unspecified cardiovascular conditions [...] of the examination. Timoteo Gutierrez M.D. Neurointerventionalist [facility] Pager: Office/Appointments: Answering Service: [facility] Transfer Center: [email or web address] Narrative 01/09/2024 9:57 AM CDT PHYSICIAN: Timoteo Gutierrez DATE: 01/09/2024. PROCEDURE: CEREBRAL ANGIOGRAM Selective catheter placement, right internal carotid artery, with angiography of the intracranial carotid circulation (CPT 18062) Selective catheter placement, right external carotid artery, with angiography of the external carotid circulation (CPT +37734) Selective catheter placement, left internal carotid artery, with angiography of the intracranial carotid circulation (CPT 14229) Selective catheter placement, left external carotid artery, with angiography of the external carotid circulation (CPT +32664) Selective catheter placement, right vertebral artery, with angiography of the vertebral circulation (CPT 69224) Selective catheter placement, left vertebral artery, with angiography of the vertebral circulation (CPT 86043) Ultrasound guidance for vascular access: right radial artery access (CPT +04370) Monitored conscious sedation: 50min (CPT 42454, CPT +81379 x2) CLINICAL HISTORY: 48 year-old female with [...] right radial percutaneous arterial puncture and a 5-Angolan sheath was placed. After infusion of a heparin, verapamil and nitroglycerin cocktail via the sheath, contrast was then injected via the sheath to assess the arterial anatomy in the right forearm. Subsequently using a 5-Angolan angled tip catheter and glidewire combination, selective [...] The anterior communicating artery is ??opacified from [id number]. The capillary, venous, and venous sinus phases [...] ??The anterior communicating artery is opacified from [id number]. Right vertebral artery injection: There is normal [...] W REFLEX MEASURED LDL (08/03/2011 10:31 AM TOOLING SUPERVISOR) CHOLESTEROL,TOTAL 171 110 - 199 mg/dL [facility] TRIGLYCERIDES 67 <150 mg/dL [facility] HDL CHOLESTEROL 43 >40 mg/dL [facility] CHOL/HDL RATIO 3.98 <4.51 [facility] LDL CHOLESTEROL 115 <131 mg/dL [facility] PATIENT STATUS Fasting [facility] Blood specimen (specimen) BLOOD SPECIMEN / Unknown 08/03/2011 10:31 AM TOOLING SUPERVISOR 08/03/2011 10:23 AM TOOLING SUPERVISOR Jasvir Pickens MD CHEMISTRY [facility] [address] [place] [address] from Last 3 Months or Most Recently Relevant to Health Maintenance Advance Directives * Full Code (Latest Code Status on File) Date Activated Date Inactivated Comments 01/09/2024 7:44 AM 01/09/2024 6:26 PM Question Answer Comments Code Status Discussion: Reviewed Preferences Care Teams Servicer Travel Trailers Relationship Specialty Start Date End Date Keira Irvin MD [address] [place] [address] PCP - General Family Practice 01/08/24
--- OUTSIDE RECORDS SUMMARY | 2024-01-12 15:49 | XMS_ITS | Encounter Summary ---
Author Name Unknown Organization [facility] Address [address] [place] [address]. [place] [address] Care Team Providers Care Net Mvc Developer Name Role Phone Yung Madrigal MD Unavailable Unavailable Winston Villatoro OD Unavailable Denise Woodson Ra, APRN SUPERVISOR HEAVY EQUIPMENT Unavailable Denise Woodson Ra, APRN SUPERVISOR HEAVY EQUIPMENT Primary Care Provid er Encounter Details Date Type Department Care Team (Late st Contact Info) Description 06/13/2021 [facility] Medical Advice [facility] [address] [place] [address] Denise Woodson Ra, APRN SUPERVISOR HEAVY EQUIPMENT [address] [place] [address] Insomnia, unspecified type Social History [...] a refill on file. Prescription approved per [facility] protocol. Mary Caraballo RN on 06/13/2021 at 5:18 PM documented in this encounter Plan of Treatment Upcoming Encounters Date Type Department Care Team (Late st Contact Info) Description 01/15/2024 3:30 PM CDT Office Visit [facility] [address] [place] [address] Jacque Alexis APRN SUPERVISOR HEAVY EQUIPMENT [address] [place] [address] documented as of this encounter Visit Diagnoses Diagnosis Insomnia, unspecified type documented in this encounter Additional Health Concerns Assessment Noted Time PHQ-9 Depression Total Score: 0 01/05/20 21 9:31 AM CDT documented as of this encounter Care Teams Net Mvc Developer Relationship Specialty Start Date End Date Yung Madrigal MD RETIRED PCP - Orthopaedics Orthopedics 08/26/12 Winston Villatoro OD [facility] [place] [address] [place] [address] PCP - Ophthalmology Ophthalmology 02/11/13 Denise Woodson Ra, APRN SUPERVISOR HEAVY EQUIPMENT [address] [place] [address] PCP - General Family Practice 09/21/20 Denise Woodson Ra, APRN SUPERVISOR HEAVY EQUIPMENT [address] [place] [address] Assigned PCP 07/17/20 documented as of this encounter
--- OUTSIDE RECORDS SUMMARY | 2024-01-12 15:49 | XMS_ITS | Encounter Summary ---
Author Name Unknown Organization [facility] Address [address] [place] [address] Care Team Providers Care Mattress Packer Name Role Phone Yung Madrigal MD Unavailable Unavailable Winston Villatoro OD Unavailable [phone] Denise Woodson Ra, APRN MANAGER COST Unavailable + [phone] Denise Woodson Ra, APRN MANAGER COST Primary Care Provid er Encounter Details Date Type Department Care Team (Late st Contact Info) Description 01/10/2023 [facility] [address] [place] [address] Arianna Lo Social History Tobacco [...] Description 01/15/2024 3:30 PM CDT [facility] [address] [place] [address] Jacque Alexis APRN MANAGER COST [address] [place] [address] documented as of this encounter Visit Diagnoses Not on filedocumented in this encounter Additional Health Concerns Assessment Noted Time PHQ-9 Depression Total Score: 0 06/23/20 21 4:11 PM CDT documented as of this encounter Care Teams Mattress Packer Relationship Specialty Start Date End Date Yung Madrigal MD RETIRED PCP - Orthopaedics Orthopedics 08/26/12 Winston Villatoro OD [facility] [place] [address] [place] [address] PCP - Ophthalmology Ophthalmology 02/11/13 Denise Woodson Ra, APRN MANAGER COST [address] [place] [address] PCP - General Family Practice 09/21/20 Denise Woodson Ra, APRN MANAGER COST [address] [place] [address] Assigned PCP 07/17/20 documented as of this encounter
--- OUTSIDE RECORDS SUMMARY | 2024-01-12 15:49 | XMS_ITS | Encounter Summary ---
Author Name Unknown Organization [place] Address [address] [place] [address]. [place] [address] Care Team Providers Care Form Setter Steel Pan Forms Name Role Phone Yung Madrigal MD Unavailable Unavailable [place] Villatoro OD Unavailable Denise Woodson Ra, APRN CORPORATE MANAGER Unavailable + [phone] Denise Woodson Ra, APRN CORPORATE MANAGER Primary Care Provid er Reason for Visit * Reason Comments Medication Refill Encounter Details Date Type Department Care Team (Late st Contact Info) Description 06/11/[address] [place] [address] Denise Woodson Ra, APRN CORPORATE MANAGER [address] [place], [place] [id number] Medication Refill Social History Tobacco Use Types [...] Description 01/15/2024 3:30 PM CDT Office Visit [facility] [address] [place] [address] Jacque Alexis APRN CORPORATE MANAGER [address] [place] [id number] documented as of this encounter Visit Diagnoses Diagnosis Insomnia, unspecified type documented in this encounter Additional Health Concerns Assessment Noted Time PHQ-9 Depression Total Score: 0 01/05/20 21 9:31 AM CDT documented as of this encounter Care Teams Form Setter Steel Pan Forms Relationship Specialty Start Date End Date Yung Madrigal MD RETIRED PCP - Orthopaedics Orthopedics 08/26/12 [place] Villatoro OD [facility] [place] [address] [facility] [address] [place] [address] PCP - Ophthalmology Ophthalmology 02/11/13 Denise Woodson Ra, APRN CORPORATE MANAGER [address] [place] [address] PCP - General Family Practice 09/21/20 Denise Woodson Ra, APRN CORPORATE MANAGER [address] [place] [address] Assigned PCP 07/17/20 documented as of this encounter
--- OUTSIDE RECORDS SUMMARY | 2024-01-12 15:49 | XMS_ITS | Encounter Summary ---
Author Name Unknown Organization [place] Address [address] [place] [address] Care Team Providers Care Cook Fishing Vessel Name Role Phone Yung Madrigal MD Unavailable Unavailable [place] Villatoro OD Unavailable [phone] Serum, Clara [place] MD Primary Care Provider Serum, Clara [place] MD Unavailable [phone] Denise Woodson Ra, APRN ENERGY EFFICIENCY FINANCE MANAGER Unavailable [phone]- [phone] Denise Woodson Ra, APRN ENERGY EFFICIENCY FINANCE MANAGER Primary Care Provid er Reason for Visit * Reason Onset Date Comments LAB REQUEST 06/16/2019 Encounter Details Date Type Department Care Team (Late st Contact Info) Description 06/16/2019 [facility] Medical Advice [address] [place] [address] Serum, Claar [place] MD [address] [place] [address] LAB REQUEST Social History Tobacco [...] RN - 06/16/2019 4:17 PM CDT See Kaliont message regarding yesterday's appointment. Patient requesting to check TSH and antibodies for pt reported possible yonas's. Pended TSH for provider review. documented in this encounter Plan of Treatment Upcoming Encounters Date Type Department Care Team (Late st Contact Info) Description 01/15/2024 3:30 PM CDT Office Visit [facility] [address] [place] [address] Jacque Alexis APRN ENERGY EFFICIENCY FINANCE MANAGER [address] [place] [address] documented as of this encounter Results * Follicle stimulating hormone (06/22/2019 3:36 PM CDT) FSH 9.5 IU/L 06/23/2019 2:32 PM CDT [facility] Comment: FSH Reference Range Female: Follicular ?2.5-10.2 ?Mid-cycle ? 3.4-33.4 ?Luteal ?1.5-9.1 ?Postmenopausal ??23.0-116.3 Blood specimen (specimen) 06/22/2019 3:36 PM CDT 06/22/2019 3:37 PM CDT Clara [place] MD LAB - BLOOD ORD ERABLES [facility] [address] [place] [address] * TSH with free T4 reflex FUTURE anytime (06/22/2019 3:36 PM CDT) TSH 3.30 0.40 - 4.00 mU/L 06/23/2019 3:12 PM CDT [facility] Blood specimen (specimen) 06/22/2019 3:36 PM CDT 06/22/2019 3:37 PM CDT Clara Cornell MD LAB - BLOOD ORD ERABLES [facility] [address] [place] [address] documented in this encounter Visit Diagnoses Diagnosis Anti-TPO antibodies present- Primary Other and unspecified nonspecific immunological findings Excessive sweating Generalized hyperhidrosis documented in this encounter Additional Health Concerns Assessment Noted Time PHQ-9 Depression Total Score: 0 06/15/20 19 7:09 PM CDT documented as of this encounter Care Teams Cook Fishing Vessel Relationship Specialty Start Date End Date Yung Madrigal MD RETIRED PCP - Orthopaedics Orthopedics 08/26/12 [place] Villatoro OD [facility] [place] [address] [place] [address] PCP - Ophthalmology Ophthalmology 02/11/13 Clara Cornell MD [facility] [place] [address] [place] [address] PCP - General Internal Medicine 02/07/17 09/20/20 Denise Woodson Ra, APRN ENERGY EFFICIENCY FINANCE MANAGER [address] [place] [address] PCP - General Family Practice 09/21/20 Clara Cornell MD [address] [place] [address] Assigned PCP 01/17/17 07/16/20 Denise Woodson Ra, APRN ENERGY EFFICIENCY FINANCE MANAGER [address] [place] [address] Assigned PCP 07/17/20 documented as of this encounter
--- OUTSIDE RECORDS SUMMARY | 2024-01-12 15:49 | XMS_ITS | Encounter Summary ---
Author Name Unknown Organization [place] Address [address] [place] [address]. [place] [address] Care Team Providers Care Order Expediter Name Role Phone Yung Madrigal MD Unavailable Unavailable [place] Villatoro OD Unavailable Denise Woodson Ra, APRN DRUGLESS DOCTOR Unavailable Denise Woodson Ra, APRN DRUGLESS DOCTOR Primary Care Provid er Reason for Visit * Reason Comments Medication Refill Encounter Details Date Type Department Care Team (Late st Contact Info) Description [facility] [address] [place] [address] Denise Woodson Ra, APRN DRUGLESS DOCTOR [address] [place] [address] Medication Refill Social History Tobacco [...] as final attempt to schedule. Karla Velasquez Emergency Management System Director * Telephone Encounter - Karla Morales - 01/17/2023 8:59 AM CDT LVM requesting a call back for an appt (physical). One more attempt will be made. Karla Morales [place] [facility] Director * Telephone Encounter - Arianna Lo - 01/10/2023 3:33 PM CDT Sent Zova message requesting a call back for an appt. Two more attempts will be made. Arianna Lo [place] [facility] Director * Telephone Encounter - Leslei Mcclellan RN - 01/10/2023 10:45 AM CDT [...] 0 0 0 Leslie Mcclellan RN, BSN [facility] documented in this encounter Plan of Treatment Upcoming Encounters Date Type Department Care Team (Late st Contact Info) Description 01/15/2024 3:30 PM CDT Office Visit [facility] [address] [place] [address] Jacque Alexis APRN DRUGLESS DOCTOR [address] [place] [address] documented as of this encounter Visit Diagnoses Diagnosis Moderate persistent asthma without complication Unspecified asthma documented in this encounter Additional Health Concerns Assessment Noted Time PHQ-9 Depression Total Score: 0 06/23/20 21 4:11 PM CDT documented as of this encounter Care Teams Order Expediter Relationship Specialty Start Date End Date Yung Madrigal MD RETIRED PCP - Orthopaedics Orthopedics 08/26/[address] [place] [address] [facility] [place] [address] [place] [address] PCP - Ophthalmology Ophthalmology 02/11/13 Denise Woodson Ra, APRN DRUGLESS DOCTOR [address] [place] [address] PCP - General Family Practice 09/21/20 Denise Woodson Ra, APRN DRUGLESS DOCTOR [address] [place] [address] Assigned PCP 07/17/20 documented as of this encounter
--- OUTSIDE RECORDS SUMMARY | 2024-01-12 15:49 | XMS_ITS | Encounter Summary ---
Author Name Unknown Organization [place] Address [address] [place] [address] Care Team Providers Care Gem Expert Name Role Phone Yung Madriagl MD Unavailable Unavailable [place] Villatoro OD Unavailable [phone] Serum, Clara [place] MD Primary Care Provider Serum, Clara [place] MD Unavailable [phone] Denise Woodson Ra, APRN CLIENT DELIVERY SPECIALIST Unavailable [phone] Denise Woodson Ra, APRN CLIENT DELIVERY SPECIALIST Primary Care Provid er Encounter Details Date Type Department Care Team (Late st Contact Info) Description 01/21/2019 [facility] Medical Advice [address] [place] [address] [facility] Social History Tobacco Use Types Packs/Day Years [...] 3:30 PM CDT Office Visit [facility] [address] [place] [address] Jacque Alexis APRN CLIENT DELIVERY SPECIALIST [address] [place] [address] documented as of this encounter Visit Diagnoses Not on filedocumented in this encounter Additional Health Concerns Assessment Noted Time PHQ-9 Depression Total Score: 0 02/09/20 17 7:29 AM CDT documented as of this encounter Care Teams Gem Expert Relationship Specialty Start Date End Date Yung Madrigal MD RETIRED PCP - Orthopaedics Orthopedics 08/26/12 [place] Villatoro OD [facility] [place] [address] [place] [address] PCP - Ophthalmology Ophthalmology 02/11/13 Clara Cornell MD [facility] [place] [address] [place] [address] PCP - General Internal Medicine 02/07/17 09/20/20 Denise Woodson Ra, APRN CLIENT DELIVERY SPECIALIST [address] [place] [address] PCP - General Family Practice 09/21/20 Clara Cornell MD [address] [place] [address] Assigned PCP 01/17/17 07/16/20 Denise Woodson Ra, APRN CLIENT DELIVERY SPECIALIST [address] [place] [address] Assigned PCP 07/17/20 documented as of this encounter
--- OUTSIDE RECORDS SUMMARY | 2024-01-12 15:49 | XMS_ITS | Encounter Summary ---
Author Name Unknown Organization [place] Address [address] [place] [address] Care Team Providers Care Plastics Seasoner Operator Name Role Phone Yung Madrgial MD Unavailable Unavailable [place] Villatoro OD Unavailable [phone] Serum, Clara [place] MD Primary Care Provider Serum, Clara [place] MD Unavailable [phone] Denise Woodson Ra, APRN FILLER SIFTER HELPER Unavailable [phone] Denise Woodson Ra, APRN FILLER SIFTER HELPER Primary Care Provid er Encounter Details Date Type Department Care Team (Late st Contact Info) Description 06/16/2019 [facility] Medical Advice [address] [place] [address] Serum, Clara [place] MD [address] [place] [address] Social History Tobacco Use Types [...] Description 01/15/2024 3:30 PM CDT Office Visit [address] [address] Jacque Alexis APRN FILLER SIFTER HELPER [address] [place] [address] documented as of this encounter Visit Diagnoses Not on filedocumented in this encounter Additional Health Concerns Assessment Noted Time PHQ-9 Depression Total Score: 0 06/15/20 19 7:09 PM CDT documented as of this encounter Care Teams Plastics Seasoner Operator Relationship Specialty Start Date End Date Yung Madrigal MD RETIRED PCP - Orthopaedics Orthopedics 08/26/12 [place] Villatoro OD [facility] [place] [address] [place] [address] PCP - Ophthalmology Ophthalmology 02/11/13 Clara Cornell MD [facility] [place] [address] [place] [address] PCP - General Internal Medicine 02/07/17 09/20/20 Denise Woodson Ra, APRN FILLER SIFTER HELPER [address] [place] [address] PCP - General Family Practice 09/21/20 Clara Cornell MD [address] [place] [address] Assigned PCP 01/17/17 07/16/20 Denise Woodson Ra, APRN FILLER SIFTER HELPER [address] [place] [address] Assigned PCP 07/17/20 documented as of this encounter
--- OUTSIDE RECORDS SUMMARY | 2024-01-12 15:49 | XMS_ITS | Encounter Summary ---
Author Name Unknown Organization [place] Address [address] [place] [address]. [place] [address] Care Team Providers Care Manager Managed Care Name Role Phone Yung Madrigal MD Unavailable Unavailable [place] Villatoro OD Unavailable [phone] Denise Woodson Ra, APRN EGG BREAKING MACHINE OPERATOR Unavailable + [phone] Denise Woodson Ra, APRN EGG BREAKING MACHINE OPERATOR Primary Care Provid er Reason for Visit * Reason Onset Date Comments URI 09/21/2020 Encounter Details Date Type Department Care Team (Late st Contact Info) Description 09/21/2020 [facility] Medical Advice [facility] [address] [place] [address] Denise Woodson Ra, APRN EGG BREAKING MACHINE OPERATOR [address] [place] [address] URI Social History Tobacco Use [...] COVID-19? No / Unsure 09/21/2020 12:04 PM ASSISTANT BRANCH MANAGER documented as of this encounter Miscellaneous Notes * Telephone Encounter - Kati Yang RN - 09/21/2020 10:54 AM CST Nestio message sent to patient. Kati Yang RN STANT BRANCH MANAGER documented in this encounter Plan of Treatment Upcoming Encounters Date Type Department Care Team (Late st Contact Info) Description 01/15/2024 3:30 PM CDT [facility] [address] [place] [address] Jacque Alexis APRN EGG BREAKING MACHINE OPERATOR [address] [place], [place] [address] documented as of this encounter Visit Diagnoses Not on filedocumented in this encounter Additional Health Concerns Assessment Noted Time PHQ-9 Depression Total Score: 0 06/15/20 19 7:09 PM CDT documented as of this encounter Care Teams Manager Managed Care Relationship Specialty Start Date End Date Yung Madrigal MD RETIRED PCP - Orthopaedics Orthopedics 08/26/12 [place] Villatoro OD [facility] [place] [address] [place] [address] PCP - Ophthalmology Ophthalmology 02/11/13 Denise Woodson Ra, APRN EGG BREAKING MACHINE OPERATOR [address] [address] [address] PCP - General Family Practice 09/21/20 Denise Woodson Ra, APRN EGG BREAKING MACHINE OPERATOR [address] [place] [address] Assigned PCP 07/17/20 documented as of this encounter
--- OUTSIDE RECORDS SUMMARY | 2024-01-12 15:49 | XMS_ITS | Encounter Summary ---
Author Name Unknown Organization [place] Address [address] [place] [address] Care Team Providers Care Tool Repair Technician Name Role Phone Timmy Perez MD Unavailable Unavailable Yung Madrigal MD Unavailable Unavailable [place] Villatoro OD Unavailable [phone] Apple Sykes MD Primary Care Provider [phone] Westley Bates MD Unavailable [phone] Alessandra Cabrales APRN RAILROAD MAINTENANCE CLERK Primary Car e Provider Serum, Clara [place] MD Primary Care Provider Serum, Clara [place] MD Unavailable [phone] Serum, Clara [place] MD Unavailable Denise Woodson Ra, APRN RAILROAD MAINTENANCE CLERK Unavailable [phone] Denise Woodson Ra, APRN, CNP Primary Care Provid er Reason for Visit * Reason Onset Date Comments MyChart Communication 05/30/2013 Encounter Details Date Type Department Care Team (Latest Contact Info) Description 05/30/2013 My[facility] Medical Advice [facility] [address] [place] [address] Apple Sykes MD [address] [place] [address] MyChart Communication Social History Tobacco Use Types [...] 3:30 PM CDT Office Visit [facility] [address] [place] [address] Jacque Alexis APRN RAILROAD MAINTENANCE CLERK [address] [place] [address] documented as of this encounter Visit Diagnoses Not on filedocumented in this encounter Care Teams Tool Repair Technician Relationship Specialty Start Date End Date Timmy Perez MD PCP - Obstetrics/Gynecology 03/02/08 08/07/15 Yung Madrigal MD RETIRED PCP - Orthopaedics Orthopedics 08/26/12 [place] Villatoro OD [facility] [place] [address] [place] [address] PCP - Ophthalmology Ophthalmology 02/11/13 Apple Sykes MD [facility] [place] [address] [place] [address] PCP - General Family Practice 05/04/13 10/25/16 Westley [place] MD XXX RETIRED [place] [address] [place] [address] PCP - ENT Otolaryngology 05/14/13 07/28/18 Alessandra Cabrales APRN RAILROAD MAINTENANCE CLERK [address] [place] [address] [place] [address] PCP - General Nurse Practitioner 10/26/16 02/06/17 Clara Conrell MD [address] [facility] [place] [address] PCP - General Internal Medicine 02/07/17 09/20/20 Clara Cornell MD [address] [place] [address] PCP - Assigned PCP 01/17/17 11/18/18 Denise [place]son Ra, APRN RAILROAD MAINTENANCE CLERK [address] [place] [address] PCP - General Family Practice 09/21/20 Clara Cornell MD [address] [facility] [place] [address] Assigned PCP 01/17/17 07/16/20 Denise Woodson Ra, APRN RAILROAD MAINTENANCE CLERK [address] [place] [address] Assigned PCP 07/17/20 documented as of this encounter
--- OUTSIDE RECORDS SUMMARY | 2024-01-12 15:50 | XMS_ITS | Encounter Summary ---
Author Name Unknown Organization [place] Address [address] [place] [address] Care Team Providers Care Oven Dauber Name Role Phone Timmy Perez MD Unavailable Unavailable Yung Madrigal MD Unavailable Unavailable Frw, None Primary Care Provider Unavailabl e [place] Villatoro OD Unavailable [phone] Apple Sykes MD Primary Care Provider [phone] Westley Bates MD Unavailable [phone] Alessandra Cabrales APRN MDM DEVELOPER Primary Car e Provider Serum, Clara [place] MD Primary Care Provider Serum, Clara [place] MD Unavailable [phone] Serum, Clara [place] MD Unavailable [phone] Denise Woodson Ra, APRN MDM DEVELOPER Unavailable [phone] Denise Woodson Ra, APRN MDM DEVELOPER Primary Care Provid er Encounter Details Date Type Department Care Team (Late st Contact Info) Description 01/31/2006 [facility] [place] [facility] [address] [place] [address] Timmy Perez MD Social History Tobacco Use [...] Description 01/15/2024 3:30 PM CDT Office Visit [facility] [address] [place] [address] Jacque Alexis APRN MDM DEVELOPER [address] [place] [address] documented as of this encounter Visit Diagnoses Not on filedocumented in this encounter Care Teams Oven Dauber Relationship Specialty Start Date End Date Timmy Perez MD PCP - Obstetrics/Gynecology 03/02/08 08/07/15 Yung Madrigal MD RETIRED PCP - Orthopaedics Orthopedics 08/26/12 Frw, None PCP - General Family Practice 08/26/12 05/03/13 [place] Villatoro OD [facility] [place] [address] [place] [address] PCP - Ophthalmology Ophthalmology 02/11/13 Apple Sykes MD [facility] [place] [address] [place] [address] PCP - General Family Practice 05/04/13 10/25/16 Westley [place] MD XXX RETIRED [place] [address] [place] [address] PCP - ENT Otolaryngology 05/14/13 07/28/18 Alessandra Cabrales APRN MDM DEVELOPER [address] [facility] [place] [address] PCP - General Nurse Practitioner 10/26/16 02/06/17 Clara Cornell MD [address] [facility] [place] [address] PCP - General Internal Medicine 02/07/17 09/20/20 Clara Cornell MD [address] [place] [address] PCP - Assigned PCP 01/17/17 11/18/18 Denise Woodson Ra, APRN MDM DEVELOPER [address] [place] [address] PCP - General Family Practice 09/21/20 Clara Cornell MD [address] [place] [address] Assigned PCP 01/17/17 07/16/20 Denise Woodson Ra, APRN MDM DEVELOPER [address] [place] [address] Assigned PCP 07/17/20 documented as of this encounter
--- OUTSIDE RECORDS SUMMARY | 2024-01-12 15:50 | XMS_ITS | Encounter Summary ---
Author Name Unknown Organization [place] Address [address] [place] [address] Care Team Providers Care Customer Service Dispatcher Name Role Phone Timmy Perez MD Unavailable Unavailable Yung Madrigal MD Unavailable Unavailable Frw, None Primary Care Provider Unavailrigoberto e [place] Villatoro OD Unavailable [phone] Apple Sykes MD Primary Care Provider [phone] West[place] MD Unavailable Alessandra Cabrales APRN EXCHANGE SPECIALIST Primary Car e Provider Serum, Clara [place] MD Primary Care Provider Serum, Clara [place] MD Unavailable [phone] Serum, Clara [place] MD Unavailable Denise Woodson Ra, APRN EXCHANGE SPECIALIST Unavailable [phone] Denise Woodson Ra, APRN EXCHANGE SPECIALIST Primary Care Provid er Reason for Visit * Reason Onset Date Comments Medication Question 04/21/2013 Farhan Saez [facility] Encounter Details Date Type Department Care Team (Late st Contact Info) Description 04/21/2013 Telephone [facility] [address] [place] [address] [place] [address] Janna Rodriguez, com writer Question ([facility]) Social History Tobacco Use Types Packs/Day Years [...] Description 01/15/2024 3:30 PM CDT Office Visit [facility] [address] [place] [address] Jacque Alexis APRN EXCHANGE SPECIALIST [address] [place], [place] [address] documented as of this encounter Visit Diagnoses Not on filedocumented in this encounter Care Teams Customer Service Dispatcher Relationship Specialty Start Date End Date Timmy Perez MD PCP - Obstetrics/Gynecology 03/02/08 08/07/15 Yung Madrigal MD RETIRED PCP - Orthopaedics Orthopedics 08/26/12 Frw, None PCP - General Family Practice 08/26/12 05/03/13 [place] Villatoro OD [facility] [place] [address] [place] [address] PCP - Ophthalmology Ophthalmology 02/11/13 Apple Sykes MD [facility] [place] [address] [place] [address] PCP - General Family Practice 05/04/13 10/25/16 Westley Bates MD XXX RETIRED [place] [address] [place] [address] PCP - ENT Otolaryngology 05/14/13 07/28/18 GeorginaAlessandra Gómez APRN EXCHANGE SPECIALIST [address] [facility] [place] [address] PCP - General Nurse Practitioner 10/26/16 02/06/17 Clara Cornell MD [address] [facility] [place] [address] PCP - General Internal Medicine 02/07/17 09/20/20 Clara Cornell MD [address] [place] [address] PCP - Assigned PCP 01/17/17 11/18/18 Denise Woodson Ra, ASSOCIATE PRODUCT INTEGRITY ENGINEER EXCHANGE SPECIALIST [address] [place] [address] PCP - General Family Practice 09/21/20 Clara Cornell MD [address] [place] [address] Assigned PCP 01/17/17 07/16/20 Denise Woodson Ra, ASSOCIATE PRODUCT INTEGRITY ENGINEER EXCHANGE SPECIALIST [address] [place] [address] Assigned PCP 07/17/20 documented as of this encounter
--- OUTSIDE RECORDS SUMMARY | 2024-01-12 15:50 | XMS_ITS | Encounter Summary ---
Author Name Unknown Organization [facility] Address [address] [place] [address] Care Team Providers Care Miller Supervisor Name Role Phone Timmy Perez MD Unavailable Unavailable Yung Madrigal MD Unavailable Unavailable Frw, None Primary Care Provider Unavailrigoberto e Winston Villatoro OD Unavailable [phone] Apple Sykes MD Primary Care Provider [phone] Westley Bates MD Unavailable [phone] GeorginaAlessandra Gómez APRN MOTOR AND GENERATOR BRUSH CUTTER Primary Car e Provider Serum, Clara Garland MD Primary Care Provider Serum, Clara Garland MD Unavailable [phone] Serum, Clara Garland MD Unavailable [phone] Denise Woodson Ra, APRN MOTOR AND GENERATOR BRUSH CUTTER Unavailable + [phone] Denise Woodson Ra, APRN MOTOR AND GENERATOR BRUSH CUTTER Primary Care Provid er Encounter Details Date Type Department Care Team (Late st Contact Info) Description 01/30/2006 [facility] in [place] Inpatient Dept [address] [place] [phone] Frw, Inpatient Provider Social History Tobacco Use [...] pain. PROCEDURE: TOTAL VAGINAL HYSTERECTOMY. SURGEON: Chris BOWLING ALLEY OPERATOR: Radha ANESTHESIA: Spinal ESTIMATED BLOOD LOSS: 100 [...] [facility] [address] [place] [address] Jacque Aleixs APRN MOTOR AND GENERATOR BRUSH CUTTER [address] [place] [address] documented as of this encounter Visit Diagnoses Not on filedocumented in this encounter Care Teams Miller Supervisor Relationship Specialty Start Date End Date Timmy Perez MD PCP - Obstetrics/Gynecology 03/02/08 08/07/15 Yung Madrigal MD RETIRED PCP - Orthopaedics Orthopedics 08/26/12 Frw, None PCP - General Family Practice 08/26/12 05/03/13 Winston Villatoro, OD [facility] [place] [address] [place] [address] PCP - Ophthalmology Ophthalmology 02/11/13 Apple Sykes MD [facility] [place] [address] [place] [address] PCP - General Family Practice 05/04/13 10/25/16 Westley Bates MD XXX RETIRED XXX [address] [place] [address] PCP - ENT Otolaryngology 05/14/13 07/28/18 Alessandra Cabrales APRN MOTOR AND GENERATOR BRUSH CUTTER [address] [facility] [place] [address] PCP - General Nurse Practitioner 10/26/16 02/06/17 Clara Cornell MD [address] [facility] [place] [address] PCP - General Internal Medicine 02/07/17 09/20/20 Clara Cornell MD [address] [place] [address] PCP - Assigned PCP 01/17/17 11/18/18 Denise Woodson Ra, APRN MOTOR AND GENERATOR BRUSH CUTTER [address] [place] [address] PCP - General Family Practice 09/21/20 Clara Cornell MD [address] [place] [address] Assigned PCP 01/17/17 07/16/20 Denise Woodson Ra, APRN MOTOR AND GENERATOR BRUSH CUTTER [address] [place] [address] Assigned PCP 07/17/20 documented as of this encounter
--- OUTSIDE RECORDS SUMMARY | 2024-01-12 15:50 | XMS_ITS | Encounter Summary ---
Author Name Unknown Organization [facility] Address [address] [place] [address] Care Team Providers Care Director Erp Name Role Phone Timmy Perez MD Unavailable Unavailable Encounter Details Date Type Department Care Team (Late st Contact Info) Description 01/17/2012 3:20 PM CDT [facility] in [address] [phone] Luis Walsh [address] [place] [address] Interface, MD [place] Social History Tobacco Use [...] 01/15/2024 3:30 PM CDT [facility] [address] [place] [phone] Jacque Alexis APRN [facility] [address] [place] [address] documented as of this encounter Visit Diagnoses Not on filedocumented in this encounter Care Teams Director Erp Relationship Specialty Start Date End Date Timmy Perez MD PCP - Obstetrics/Gynecology 03/02/0807/18 documented as of this encounter
== END 2024-01-12 17:20 | disposition home or self-care (01) ==
PROVIDERS: Emergency Provider Family Medicine; PCP Family Medicine
DX: M79.601 Pain in right arm (principal)
CPT/HCPCS: 93931; 99283

== ENCOUNTER 2024-01-13 14:18 | Outpatient (CLI) | payer OTHER, SELFPAY ==
--- OUTSIDE RECORDS SUMMARY | 2024-01-13 14:22 | XMS_ITS | Referral Summary ---
Author Name Unknown Organization [facility] Address [address] [place] [address] Care Team Providers Care Linen Room Houseperson Name Role Phone Darius Shaw M.D. Primary Care Provider [phone] Source Comments Patient records contain information from all sites at [facility]. For routine questions regarding patient records, call [phone] during business hours, M-F 8:00 AM - 5:00 PM Central Time. Record requests for emergency care only can be directed to [phone] at any time.[facility] Allergies Active Allergy Reactions Criticality [...] week 01/10/2023 How often do you attend worship or christianity serv ices? Never 01/10/2023 Do you belong to any clubs o r organizations such as worship groups, unions, fraternal or athletic groups, or [...] PHQ-2 Score 3 01/10/2023 [facility] of Occupat ional Health - Occupational Stress [...] on file Medical Devices Implanted Type Area Chief Of Pediatric Urology Device Identifier Shelf Expiration Date Model / Serial / Lot Mesh Or Patch Mesh or Patch Heart Description:Amplatzer Septal Occluder Asd Closure Device 34mm - Sanders [id number] Implanted:Qty: 1 on 06/20/2006 Septal Defect Occluder Device Other/Legacy - See Implant Description Description:Device Manufactu [facility]. Device Status Text - [id number]. Procedures Procedure Name Priority Date/Time Associated Diagnosis Comments BI BREAST SCREENING BILATERAL WITH TOMOSYNTHESIS RAD - Routine (most inpatients and all outpatients) 07/30/2023 2:38 PM HEALTH INFORMATION MANAGEMENT DIRECTOR Screening Mammogram Breast Cancer COLOGUARD Routine 10/28/2022 5:54 PM HEALTH INFORMATION MANAGEMENT DIRECTOR Screening Cancer Colon VBG & LYTES CG8+, POCT, B Routine 09/30/2022 10:38 AM HEALTH INFORMATION MANAGEMENT DIRECTOR EXTI LIPID PANEL REFLEX TO DIRECT LDL Routine 07/27/2021 8:57 AM HEALTH INFORMATION MANAGEMENT DIRECTOR from Last 3 Months or Most Recently Relevant to Health Maintenance Results * BI Breast Screening Bilateral with Tomosynthesis (07/30/2023 2:38 PM HEALTH INFORMATION MANAGEMENT DIRECTOR) Anatomical Region Laterality Modality Breast, Breast Imaging RST L OS, Breast Imaging ARZ LOS, Breast Imaging FLA LOS Bilateral Mammography 08/01/2023 12:2 8 PM HEALTH INFORMATION MANAGEMENT DIRECTOR Impressions 08/01/2023 12:33 PM HEALTH INFORMATION MANAGEMENT DIRECTOR Negative. RECOMMENDATION: ??Annual Screening Mammogram ASSESSMENT: ??BI-RADS: 1: Negative. Narrative 08/01/2023 12:33 PM HEALTH INFORMATION MANAGEMENT DIRECTOR EXAM: ??BI BREAST SCREENING BILATERAL WITH TOMOSYNTHESIS [...] ASSESSMENT: BI-RADS: 1: Negative. Darius Shaw M.D. [facility] BI PROCEDURES * Cologuard-Sent Out Lab (10/28/2022 5:54 PM HEALTH INFORMATION MANAGEMENT DIRECTOR) Result Negative Negative 11/03/2022 2:48 AM HEALTH INFORMATION MANAGEMENT DIRECTOR EXLI Comment: NEGATIVE TEST RESULT. A negative [...] (Yenny Adkins al, N Engl J Med 2014;370(14):8364-5307) The normal value (reference range) for this assay is negative. COLOGUARD RE-SCREENING RECOMMENDATION: Periodic colorectal cancer screening is an important part of preventive healthcare for asymptomatic individuals at average risk for colorectal cancer. ??Following a negative Cologuard result, the [place] Cancer Society and U.S. Multi-Society Task Force screening guidelines recommend a Cologuard re-screening interval of 3 years. References: [place] Cancer Society Guideline for Colorectal Cancer Screening: https://www.cancer.org/cancer/ehpka-pzhrsq-cawxin/detection- diagnosis-staging/acs-recommendations.html.; Ming MARTINEZ, Barbra CR, Erna SimsK, Colorectal Cancer Screening: Recommendations for Physicians and Patients from the U.S. Multi-Society Task Force on Colorectal Cancer Screening , Am J Gastroenterology 2017; 112:5830-8431. TEST DESCRIPTION: Composite algorithmic analysis of stool [...] (Yenny Adkins al, N Engl J Med 2014;370(14):7314-5329.) Cologuard may produce a false negative or false positive result (no colorectal cancer or precancerous polyp present at colonoscopy follow up). A negative Cologuard test result does not guarantee the absence of CRC or advanced adenoma (pre-cancer). The current Cologuard screening interval is every 3 years. ([place] Cancer Society and U.S. Multi-Society Task Force). Cologuard performance data in a 10,000 patient pivotal study using colonoscopy as the reference method can be accessed at the following location: www.Curioos/results. Additional description of the Cologuard test process, warnings and precautions can be found at www.cologuard.com. Stool (Stool) 10/28/2022 5:5 4 PM HEALTH INFORMATION MANAGEMENT DIRECTOR 10/30/2022 1:57 PM HEALTH INFORMATION MANAGEMENT DIRECTOR Darius Shaw M.D. LAB BODY FLUIDS AND STOOLS ORDERABLES [employer] [address] [place] [address] EXLI [employer] [address] [facility], [address] [place] [address] * Venous Blood Gas and Electrolytes CG8+, POCT (09/30/2022 10:38 AM HEALTH INFORMATION MANAGEMENT DIRECTOR) Sample Site, POCT Venstick 09/30/2022 10:54 AM HEALTH INFORMATION MANAGEMENT DIRECTOR PCSM Comment: ----ADDITIONAL INFORMATION---- Performed at the Point of Care pH, Venous, POCT, B 7.43 7.32 - 7.43 09/30/2022 10:54 AM HEALTH INFORMATION MANAGEMENT DIRECTOR PCSM Comment: ----ADDITIONAL INFORMATION---- Performed at the Point of Care pCO2, Venous, POCT, B 46 41 - 51 mm Hg 09/30/2022 10:54 AM HEALTH INFORMATION MANAGEMENT DIRECTOR PCSM Comment: ----ADDITIONAL INFORMATION---- Performed at the Point of Care pO2, Venous, POCT, B 25 Not Applicable mm Hg 09/30/2022 10:54 AM HEALTH INFORMATION MANAGEMENT DIRECTOR PCSM Comment: ----ADDITIONAL INFORMATION---- Performed at the Point of Care Base Excess, Venous, POCT, B 6 Not Applicable mmol/L 09/30/2022 10:54 AM HEALTH INFORMATION MANAGEMENT DIRECTOR PCSM Comment: ----ADDITIONAL INFORMATION---- Performed at the Point of Care HCO3, Venous, POCT, B 31 Not Applicable mmol/L 09/30/2022 10:54 AM HEALTH INFORMATION MANAGEMENT DIRECTOR PCSM Comment: ----ADDITIONAL INFORMATION---- Performed at the Point of Care Sodium, POCT, B 140 135 - 145 mmol/L 09/30/2022 10:54 AM HEALTH INFORMATION MANAGEMENT DIRECTOR PCSM Comment: ----ADDITIONAL INFORMATION---- Performed at the Point of Care Potassium, POCT, B 4.3 3.6 - 5.2 mmol/L 09/30/2022 10:54 AM HEALTH INFORMATION MANAGEMENT DIRECTOR PCSM Comment: ----ADDITIONAL INFORMATION---- Performed at the Point of Care Calcium, Ionized, POCT, B 5.20 4.65 - 5.30 mg/dL 09/30/2022 10:54 AM HEALTH INFORMATION MANAGEMENT DIRECTOR PCSM Comment: ----ADDITIONAL INFORMATION---- Performed at the Point of Care Glucose, POCT, B 117 70 - 140 mg/dL 09/30/2022 10:54 AM HEALTH INFORMATION MANAGEMENT DIRECTOR PCSM Comment: ----ADDITIONAL INFORMATION---- Performed at the Point of Care Hematocrit, POCT, B 44.0 35.5 - 44.9 % 09/30/2022 10:54 AM HEALTH INFORMATION MANAGEMENT DIRECTOR PCSM Comment: ----ADDITIONAL INFORMATION---- Performed at the Point of Care Blood 09/30/2022 10:3 8 AM HEALTH INFORMATION MANAGEMENT DIRECTOR 09/30/2022 10:54 AM HEALTH INFORMATION MANAGEMENT DIRECTOR Unknown Provider LAB POCT ORDERABLES - DEVICE POC RST [facility] [address] [place] [address], [facility] PCSM [facility] POC [address] [place] [address] from Last 3 Months or Most Recently Relevant to Health Maintenance Advance Directives For more information, please contact: [phone] * Full Code (Latest Code Status on File) Date Activated Date Inactivated Comments 09/30/2022 4:41 PM 10/02/2022 6:08 PM Question Answer Comments Full Code: Discussed Care Teams Linen Room Houseperson Relationship Specialty Start Date End Date Darius Shaw M.D. [address] [phone] PCP - General Family Medicine 09/27/22
--- OUTSIDE RECORDS SUMMARY | 2024-01-13 14:22 | XMS_ITS | Clinical Summary ---
Author Name Unknown Organization [facility] Address [address] [place] [address] Care Team Providers Care Door To Door Lead Generation Name Role Phone Darius Shaw M.D. Primary Care Provider [phone] Source Comments Patient records contain information from all sites at [facility]. For routine questions regarding patient records, call [phone] during business hours, M-F 8:00 AM - 5:00 PM Central Time. Record requests for emergency care only can be directed to [phone] at any time.[facility] Allergies Active Allergy Reactions Criticality Noted Date [...] How often do you attend nondenominational or sabianist serv ices? Never 01/10/2023 Do you belong [...] Answer Date Recorded PHQ-2 Score 3 01/10/2023 [facility] of Occupat ional Health - Occupational Stress [...] 11/07/2011, 10/04/2011 Medical Devices Implanted Type Area Straight Line Press Setter Device Identifier Shelf Expiration Date Model / Serial / Lot Mesh Or Patch Mesh or Patch Heart Description:Amplatzer Septal Occluder Asd Closure Device 34mm - [place] [id number] Implanted:Qty: 1 on 06/20/2006 Septal Defect Occluder Device Other/Legacy - See Implant Description Description:Device Manufactu [facility]. Device Status Text - [id number]. Procedures Procedure Name Priority Date/Time Associated Diagnosis Comments BI BREAST SCREENING BILATERAL WITH TOMOSYNTHESIS RAD - Routine (most inpatients and all outpatients) 07/30/2023 2:38 PM TRACK WALKER Screening Mammogram Breast Cancer COLOGUARD Routine 10/28/2022 5:54 PM TRACK WALKER Screening Cancer Colon VBG & LYTES CG8+, POCT, B Routine 09/30/2022 10:38 AM TRACK WALKER EXTI LIPID PANEL REFLEX TO DIRECT LDL Routine 07/27/2021 8:57 AM TRACK WALKER from Last 3 Months or Most Recently Relevant to Health Maintenance Results * BI Breast Screening Bilateral with Tomosynthesis (07/30/2023 2:38 PM TRACK WALKER) Anatomical Region Laterality Modality Breast, Breast Imaging RST L OS, Breast Imaging ARZ LOS, Breast Imaging FLA LOS Bilateral Mammography 08/01/2023 12:2 8 PM TRACK WALKER Impressions 08/01/2023 12:33 PM TRACK WALKER Negative. RECOMMENDATION: ??Annual Screening Mammogram ASSESSMENT: ??BI-RADS: 1: Negative. Narrative 08/01/2023 12:33 PM TRACK WALKER EXAM: ??BI BREAST SCREENING BILATERAL WITH TOMOSYNTHESIS [...] ASSESSMENT: BI-RADS: 1: Negative. Darius Shaw M.D. [facility] BI PROCEDURES * Cologuard-Sent Out Lab (10/28/2022 5:54 PM TRACK WALKER) Result Negative Negative 11/03/2022 2:48 AM TRACK WALKER INNA Comment: NEGATIVE TEST RESULT. A negative [...] Melchor. et al, N Engl J Med 2014;370(14):0696-4984) The normal value (reference range) for this assay is negative. COLOGUARD RE-SCREENING RECOMMENDATION: Periodic colorectal cancer screening is an important part of preventive healthcare for asymptomatic individuals at average risk for colorectal cancer. ??Following a negative Cologuard result, the [place] Cancer Society and U.S. Multi-Society Task Force screening guidelines recommend a Cologuard re-screening interval of 3 years. References: [place] Cancer Society Guideline for Colorectal Cancer Screening: https://www.cancer.org/cancer/ignpq-clyqtm-mgaxmn/detection- diagnosis-staging/acs-recommendations.html.; Ming MARTINEZ, Barbra TREJO, Erna SimsK, Colorectal Cancer Screening: Recommendations for Physicians and Patients from the U.S. Multi-Society Task Force on Colorectal Cancer Screening , Am J Gastroenterology 2017; 112:1950-9263. TEST DESCRIPTION: Composite algorithmic analysis of stool [...] (Yenny Adkins al, N Engl J Med 2014;370(14):1471-5207.) Cologuard may produce a false negative or false positive result (no colorectal cancer or precancerous polyp present at colonoscopy follow up). A negative Cologuard test result does not guarantee the absence of CRC or advanced adenoma (pre-cancer). The current Cologuard screening interval is every 3 years. ([place] Cancer Society and U.S. Multi-Society Task Force). Cologuard performance data in a 10,000 patient pivotal study using colonoscopy as the reference method can be accessed at the following location: www.EpiEP/results. Additional description of the Cologuard test process, warnings and precautions can be found at www.Ongagerd.com. Stool (Stool) 10/28/2022 5:5 4 PM TRACK WALKER 10/30/2022 1:57 PM TRACK WALKER Darius Shaw M.D. LAB BODY FLUIDS AND STOOLS ORDERABLES [facility] [address] [place] [address] EXLI [employer] [address] [facility], [address] [place] [address] * Venous Blood Gas and Electrolytes CG8+, POCT (09/30/2022 10:38 AM TRACK WALKER) Sample Site, POCT Venstick 09/30/2022 10:54 AM TRACK WALKER PCSM Comment: ----ADDITIONAL INFORMATION---- Performed at the Point of Care pH, Venous, POCT, B 7.43 7.32 - 7.43 09/30/2022 10:54 AM TRACK WALKER PCSM Comment: ----ADDITIONAL INFORMATION---- Performed at the Point of Care pCO2, Venous, POCT, B 46 41 - 51 mm Hg 09/30/2022 10:54 AM TRACK WALKER PCSM Comment: ----ADDITIONAL INFORMATION---- Performed at the Point of Care pO2, Venous, POCT, B 25 Not Applicable mm Hg 09/30/2022 10:54 AM TRACK WALKER PCSM Comment: ----ADDITIONAL INFORMATION---- Performed at the Point of Care Base Excess, Venous, POCT, B 6 Not Applicable mmol/L 09/30/2022 10:54 AM TRACK WALKER PCSM Comment: ----ADDITIONAL INFORMATION---- Performed at the Point of Care HCO3, Venous, POCT, B 31 Not Applicable mmol/L 09/30/2022 10:54 AM TRACK WALKER PCSM Comment: ----ADDITIONAL INFORMATION---- Performed at the Point of Care Sodium, POCT, B 140 135 - 145 mmol/L 09/30/2022 10:54 AM TRACK WALKER PCSM Comment: ----ADDITIONAL INFORMATION---- Performed at the Point of Care Potassium, POCT, B 4.3 3.6 - 5.2 mmol/L 09/30/2022 10:54 AM TRACK WALKER PCSM Comment: ----ADDITIONAL INFORMATION---- Performed at the Point of Care Calcium, Ionized, POCT, B 5.20 4.65 - 5.30 mg/dL 09/30/2022 10:54 AM TRACK WALKER PCSM Comment: ----ADDITIONAL INFORMATION---- Performed at the Point of Care Glucose, POCT, B 117 70 - 140 mg/dL 09/30/2022 10:54 AM TRACK WALKER PCSM Comment: ----ADDITIONAL INFORMATION---- Performed at the Point of Care Hematocrit, POCT, B 44.0 35.5 - 44.9 % 09/30/2022 10:54 AM TRACK WALKER PCSM Comment: ----ADDITIONAL INFORMATION---- Performed at the Point of Care Blood 09/30/2022 10:3 8 AM TRACK WALKER 09/30/2022 10:54 AM TRACK WALKER Unknown Provider LAB POCT ORDERABLES - DEVICE POC RST [facility] [address] [place] [address], [place] [facility] POC [address] [place] [address] from Last 3 Months or Most Recently Relevant to Health Maintenance Advance Directives For more information, please contact: [phone] * Full Code (Latest Code Status on File) Date Activated Date Inactivated Comments 09/30/2022 4:41 PM 10/02/2022 6:08 PM Question Answer Comments Full Code: Discussed Care Teams Door To Door Lead Generation Relationship Specialty Start Date End Date Darius Shaw M.D. [place]: [phone] [address] [place] [phone] PCP - General Family Medicine 09/27/22
--- OUTSIDE RECORDS SUMMARY | 2024-01-13 14:22 | XMS_ITS ---
Author Name Unknown Organization [facility] Address [address] [place] [address] Care Team Providers Care Radio Technician Name Role Phone Unavailable Unavailable Unavailable Surgery Details Not on file Complications Check Surgery Details section. Procedure Estimated Blood Loss Check Surgery Details section. Procedure Findings Check Surgery Details section. Procedure Specimens Taken Check Surgery Details section.
--- OUTSIDE RECORDS SUMMARY | 2024-01-13 14:23 | XMS_ITS | Clinical Summary ---
Author Name Unknown Organization [facility] Address [address] [place] [address] Care Team Providers Care Industrial Renderer Name Role Phone Yung Madrigal MD Unavailable Unavailable Winston Villatoro OD Unavailable [phone] Denise Woodson Ra, APRN ORDER SELECTOR Unavailable [phone] Denise Woodson Ra, APRN ORDER SELECTOR Primary Care Provid er Allergies Active Allergy [...] (FLONASE) 50 MCG/ACT nasal sprayIndications:Chr onic rhinitis [place] 2 sprays into both nostrils daily 16 [...] Comments Blood Pressure 108/68 07/27/2021 8:28 AM ENTRY LEVEL SALES REPRESENTATIVE Pulse 68 07/27/2021 8:28 AM ENTRY LEVEL SALES REPRESENTATIVE Temperature 36.9 ??C (98.4 ??F) 07/27/2021 8:28 AM CS T Respiratory Rate 12 07/27/2021 8:28 AM ENTRY LEVEL SALES REPRESENTATIVE Oxygen Saturation 97% 07/27/2021 8:28 AM ENTRY LEVEL SALES REPRESENTATIVE Inhaled Oxygen Concentration - - Weight 99.3 kg (219 lb) 07/27/2021 8:28 AM ENTRY LEVEL SALES REPRESENTATIVE Height 174.6 cm (5' 8.75) 02/08/2021 10:22 AM C DT Body Mass Index 32.58 02/08/2021 10:22 AM CDT Plan of Treatment Upcoming Encounters Date Type Department Care Team (Late st Contact Info) Description 01/15/2024 3:30 PM CDT Office Visit [facility] [address] [place] [phone] Jacque Alexis APRN ORDER SELECTOR [address] [place] [address] Health Maintenance Due Date Last Done Comments [...] COMPREHENSIVE METABOLIC PANEL Routine 07/27/2021 8:57 AM ENTRY LEVEL SALES REPRESENTATIVE Routine general medical examination at a health care facility CARDIOVASCULAR SCREENING; LDL GOAL LESS THAN 160 LIPID REFLEX TO DIRECT LDL PANEL Routine 07/27/2021 8:57 AM ENTRY LEVEL SALES REPRESENTATIVE CARDIOVASCULAR SCREENING; LDL GOAL LESS THAN [...] patient. IRMA HOWELL MD Denise Woodson APRN ORDER SELECTOR IMG MAMMOGRA PHY ORDERABLES * (ABNORMAL) Lipid panel reflex to direct LDL Fasting (07/27/2021 8:57 AM ENTRY LEVEL SALES REPRESENTATIVE) Cholesterol 202(H) <200 mg/dL 07/28/2021 10:12 AM ENTRY LEVEL SALES REPRESENTATIVE [facility] Triglycerides 91 <150 mg/dL 07/28/2021 10:12 AM ENTRY LEVEL SALES REPRESENTATIVE [facility] Direct Measure HDL 56 >=50 mg/dL 07/28/2021 10:12 AM ENTRY LEVEL SALES REPRESENTATIVE [facility] LDL Cholesterol Calculated 128(H) <=100 mg/dL 07/28/2021 10:12 AM ENTRY LEVEL SALES REPRESENTATIVE [facility] Non HDL Cholesterol 146(H) <130 mg/dL 07/28/2021 10:12 AM ENTRY LEVEL SALES REPRESENTATIVE [facility] Patient Fasting > 8hrs? Yes 07/28/2021 10:12 AM ENTRY LEVEL SALES REPRESENTATIVE [facility] Blood STRUCTURE OF RIGHT UPPER LIMB / Unknown Venipuncture / Unknown 07/27/2021 8:57 AM ENTRY LEVEL SALES REPRESENTATIVE 07/27/2021 8:57 AM ENTRY LEVEL SALES REPRESENTATIVE Narrative [facility] - 07/28/2021 10:12 AM ENTRY LEVEL SALES REPRESENTATIVE Cholesterol Desirable: ??<200 mg/dL Triglycerides Normal: [...] equal to 220 mg/dL Denise Woodson APRN ORDER SELECTOR LAB - BLOOD ORDERABLES [facility] [address] Lab (no room number, 1st floor of clinic) [place] [address], [facility] [phone] * Comprehensive metabolic panel (BMP + Alb, Alk Phos, ALT, AST, Total. Bili, TP) (07/27/2021 8:57 AM ENTRY LEVEL SALES REPRESENTATIVE) Sodium 139 133 - 144 mmol/L 07/28/2021 10:12 AM ENTRY LEVEL SALES REPRESENTATIVE [facility] Potassium 4.0 3.4 - 5.3 mmol/L 07/28/2021 10:12 AM ENTRY LEVEL SALES REPRESENTATIVE [facility] Chloride 105 94 - 109 mmol/L 07/28/2021 10:12 AM ENTRY LEVEL SALES REPRESENTATIVE [facility] Carbon Dioxide (CO2) 26 20 - 32 mmol/L 07/28/2021 10:12 AM ENTRY LEVEL SALES REPRESENTATIVE [facility] Anion Gap 8 3 - 14 mmol/L 07/28/2021 10:12 AM ENTRY LEVEL SALES REPRESENTATIVE [facility] Urea Nitrogen 20 7 - 30 mg/dL 07/28/2021 10:12 AM ENTRY LEVEL SALES REPRESENTATIVE [facility] Creatinine 0.74 0.52 - 1.04 mg/dL 07/28/2021 10:12 AM ENTRY LEVEL SALES REPRESENTATIVE [facility] Calcium 8.8 8.5 - 10.1 mg/dL 07/28/2021 10:12 AM ENTRY LEVEL SALES REPRESENTATIVE [facility] Glucose 95 70 - 99 mg/dL 07/28/2021 10:12 AM ENTRY LEVEL SALES REPRESENTATIVE [facility] Alkaline Phosphatase 67 40 - 150 U/L 07/28/2021 10:12 AM ENTRY LEVEL SALES REPRESENTATIVE [facility] AST 8 0 - 45 U/L 07/28/2021 10:12 AM ENTRY LEVEL SALES REPRESENTATIVE [facility] ALT 18 0 - 50 U/L 07/28/2021 10:12 AM ENTRY LEVEL SALES REPRESENTATIVE [facility] Protein Total 7.6 6.8 - 8.8 g/dL 07/28/2021 10:12 AM ENTRY LEVEL SALES REPRESENTATIVE [facility] Albumin 3.4 3.4 - 5.0 g/dL 07/28/2021 10:12 AM ENTRY LEVEL SALES REPRESENTATIVE [facility] Bilirubin Total 0.5 0.2 - 1.3 mg/dL 07/28/2021 10:12 AM ENTRY LEVEL SALES REPRESENTATIVE [facility] GFR Estimate >90 >60 mL/min/1.7 3m2 07/28/2021 10:12 AM ENTRY LEVEL SALES REPRESENTATIVE [facility] Comment:As of March 26, 2021, eGFR is calculated by the CKD-EPI creatinine equation, without race adjustment. eGFR can be influenced by muscle mass, exercise, and diet. The reported eGFR is an estimation only and is only applicable if the renal function is stable. Blood STRUCTURE OF RIGHT UPPER LIMB / Unknown Venipuncture / Unknown 07/27/2021 8:57 AM ENTRY LEVEL SALES REPRESENTATIVE 07/27/2021 8:57 AM ENTRY LEVEL SALES REPRESENTATIVE Denise Woodson APRN ORDER SELECTOR LAB - BLOOD ORDERABLES [facility] [address] Lab (no room number, 1st floor of clinic) [place] [address], [facility] [phone] from Last 3 Months or Most Recently Relevant to Health Maintenance Care Teams Industrial Renderer Relationship Specialty Start Date End Date Yung Madrigal MD RETIRED PCP - Orthopaedics Orthopedics 08/26/12 Winston Villatoro OD [facility] [place] [address] [facility] [address] [place] [address] PCP - Ophthalmology Ophthalmology 02/11/13 Denise Woodson Ra, APRN ORDER SELECTOR [address] [place] [address] PCP - General Family Practice 09/21/20 Denise Woodson Ra, APRN ORDER SELECTOR [address] [place] [address] Assigned PCP 07/17/20
--- OUTSIDE RECORDS SUMMARY | 2024-01-13 14:23 | XMS_ITS | Encounter Summary ---
Author Name Unknown Organization [facility] Address [address] [place] [address]. [place] [address] Care Team Providers Care Barrel Tester And Drainer Name Role Phone Yung Madrigal MD Unavailable Unavailable Winston Villatoro OD Unavailable [phone] Denise Woodson Ra, APRN OCCUPATIONAL THERAPY CO DIRECTOR Unavailable Denise Woodson Ra, APRN OCCUPATIONAL THERAPY CO DIRECTOR Primary Care Provid er Reason for Visit * Reason Comments Medication Refill Encounter Details Date Type Department Care Team (Late st Contact Info) Description [facility] [address] [place] [address] Denise Woodson Ra, APRN OCCUPATIONAL THERAPY CO DIRECTOR [address] [place] [address] Medication Refill Social History Tobacco [...] as final attempt to schedule. Karla Velasquez Drying Frame Operator * Telephone Encounter - Karla Morales - 01/17/2023 8:59 AM CDT LVM requesting a call back for an appt (physical). One more attempt will be made. Karla Morales [place] Drying Frame Operator * Telephone Encounter - Arianna Lo - 01/10/2023 3:33 PM CDT Sent [employer] message requesting a call back for an appt. Two more attempts will be made. Arianna Lo [place] Drying Frame Operator * Telephone Encounter - Lselie Mcclellan RN - 01/10/2023 10:45 AM CDT [...] 0 0 0 Leslie Mcclellan RN, BSN [facility] documented in this encounter Plan of Treatment Upcoming Encounters Date Type Department Care Team (Late st Contact Info) Description 01/15/2024 3:30 PM CDT Office Visit [facility] [address] [place] [address] Jacque Alexis APRN OCCUPATIONAL THERAPY CO DIRECTOR [address] [place] [address] documented as of this encounter Visit Diagnoses Diagnosis Moderate persistent asthma without complication Unspecified asthma documented in this encounter Additional Health Concerns Assessment Noted Time PHQ-9 Depression Total Score: 0 06/23/20 21 4:11 PM CDT documented as of this encounter Care Teams Barrel Tester And Drainer Relationship Specialty Start Date End Date Yung Madrigal MD RETIRED PCP - Orthopaedics Orthopedics 08/26/12 Winston Villatoro OD [facility] [place] [address] [place] [address] PCP - Ophthalmology Ophthalmology 02/11/13 Denise Woodson Ra, APRN OCCUPATIONAL THERAPY CO DIRECTOR [address] [place] [address] PCP - General Family Practice 09/21/20 Denise Woodson Ra, APRN OCCUPATIONAL THERAPY CO DIRECTOR [address] [place] [address] Assigned PCP 07/17/20 documented as of this encounter
--- OUTSIDE RECORDS SUMMARY | 2024-01-13 14:23 | XMS_ITS | Encounter Summary ---
Author Name Unknown Organization [facility] Address [address] [place] [address] Care Team Providers Care Driver'S Education Instructor Name Role Phone Yung Madrigal MD Unavailable Unavailable Winston Villatoro OD Unavailable [phone] Serum, Clara Garland MD Primary Care Provider Serum, Clara Garland MD Unavailable [phone] Denise Woodson Ra, APRN ENGINEERING PROGRAM MANAGER Unavailable [phone] Denise Woodson Ra, APRN ENGINEERING PROGRAM MANAGER Primary Care Provid er Reason for Visit * Reason Onset Date Comments LAB REQUEST 06/16/2019 Encounter Details Date Type Department Care Team (Late st Contact Info) Description 06/16/2019 [facility] Medical Advice [address] [place] [address] Serum, Clara Garland MD [address] [place] [address] LAB REQUEST Social History Tobacco [...] RN - 06/16/2019 4:17 PM CDT See [employer] message regarding yesterday's appointment. Patient requesting to check TSH and antibodies for pt reported possible yonas's. Pended TSH for provider review. documented in this encounter Plan of Treatment Upcoming Encounters Date Type Department Care Team (Late st Contact Info) Description 01/15/2024 3:30 PM CDT Office Visit [facility] [address] [place] [address] Jacque Alexis APRN ENGINEERING PROGRAM MANAGER [address] [place] [address] documented as of this encounter Results * Follicle stimulating hormone (06/22/2019 3:36 PM CDT) FSH 9.5 IU/L 06/23/2019 2:32 PM CDT [facility] Comment: FSH Reference Range Female: Follicular ?2.5-10.2 ?Mid-cycle ? 3.4-33.4 ?Luteal ?1.5-9.1 ?Postmenopausal ??23.0-116.3 Blood specimen (specimen) 06/22/2019 3:36 PM CDT 06/22/2019 3:37 PM CDT Clara Cornell MD LAB - BLOOD ORD ERABLES [facility] [address] [place] [address] * TSH with free T4 reflex FUTURE anytime (06/22/2019 3:36 PM CDT) TSH 3.30 0.40 - 4.00 mU/L 06/23/2019 3:12 PM CDT [facility] Blood specimen (specimen) 06/22/2019 3:36 PM CDT 06/22/2019 3:37 PM CDT Clara Cornell MD LAB - BLOOD ORD ERABLES [facility] [address] [place] [address] documented in this encounter Visit Diagnoses Diagnosis Anti-TPO antibodies present- Primary Other and unspecified nonspecific immunological findings Excessive sweating Generalized hyperhidrosis documented in this encounter Additional Health Concerns Assessment Noted Time PHQ-9 Depression Total Score: 0 06/15/20 19 7:09 PM CDT documented as of this encounter Care Teams Driver'S Education Instructor Relationship Specialty Start Date End Date Yung Madrigal MD RETIRED PCP - Orthopaedics Orthopedics 08/26/12 Winston Villatoro OD [facility] [place] [address] [place] [address] PCP - Ophthalmology Ophthalmology 02/11/13 Clara Cornell MD [facility] [place] [address] [place] [address] PCP - General Internal Medicine 02/07/17 09/20/20 Denise Woodson Ra, APRN ENGINEERING PROGRAM MANAGER [address] [place] [address] PCP - General Family Practice 09/21/20 Clara Cornell MD [address] [place] [address] Assigned PCP 01/17/17 07/16/20 Denise Woodson Ra, APRN ENGINEERING PROGRAM MANAGER [address] [place] [address] Assigned PCP 07/17/20 documented as of this encounter
--- OUTSIDE RECORDS SUMMARY | 2024-01-13 14:23 | XMS_ITS | Encounter Summary ---
Author Name Unknown Organization [facility] Address [address] [place] [address]. [place] [address] Care Team Providers Care Business Process Engineer Name Role Phone Yung Madrigal MD Unavailable Unavailable Winston Villatoro OD Unavailable [phone] Denise Woodson Ra, APRN UTILIZATION MANAGER Unavailable Denise Woodson Ra, APRN UTILIZATION MANAGER Primary Care Provid er Reason for Visit * Reason Onset Date Comments Medication Request 04/20/2021 escitalopram (LEXAPRO) 10 MG tablet Encounter Details Date Type Department Care Team (Late st Contact Info) Description 04/20/2021 MyC Medical Advice [facility] [address] [place] [address] Denise Woodson Ra, APRN UTILIZATION MANAGER [address] [place] [address] Medication Request (escitalopram (LEXAPRO)... Social [...] appt for refill. 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, recurrent episode, mild documented in this encounter Additional Health Concerns Assessment Noted Time PHQ-9 Depression Total Score: 0 01/05/20 21 9:31 AM CDT documented as of this encounter Care Teams Business Process Engineer Relationship Specialty Start Date End Date Yung Madrigal MD RETIRED PCP - Orthopaedics Orthopedics 08/26/12 Winston Villatoro OD [facility] [place] [address] [facility] [address] [place] [address] PCP - Ophthalmology Ophthalmology 02/11/13 Denise Woodson Ra, APRN UTILIZATION MANAGER [address] [place] [address] PCP - General Family Practice 09/21/20 Denise Woodson Ra, APRN UTILIZATION MANAGER [address] [place] [address] Assigned PCP 07/17/20 documented as of this encounter
--- OUTSIDE RECORDS SUMMARY | 2024-01-13 14:23 | XMS_ITS | Encounter Summary ---
Author Name Unknown Organization [facility] Address [address] [place] [address] Care Team Providers Care Physical Science Technician Name Role Phone Yung Madrigal MD Unavailable Unavailable Winston Villatoro OD Unavailable [phone] Denise Woodson Ra, APRN IMAGE ASSEMBLER Unavailable + [phone] Denise Woodson Ra, APRN IMAGE ASSEMBLER Primary Care Provid er Encounter Details Date Type Department Care Team (Late Contact Info) Description 12/30/2020 [facility] [address] [place] [address] Jessica Phipps, BIBI Social History [...] Description 01/15/2024 3:30 PM CDT Office Visit [facility] [place] [address] [place] [address] Jacque Alexis APRN IMAGE ASSEMBLER [address] [place] [address] documented as of this encounter Visit Diagnoses Not on filedocumented in this encounter Additional Health Concerns Assessment Noted Time PHQ-9 Depression Total Score: 0 06/15/20 19 7:09 PM CDT documented as of this encounter Care Teams Physical Science Technician Relationship Specialty Start Date End Date Yung Madrigal MD RETIRED PCP - Orthopaedics Orthopedics 08/26/12 Winston Villatoro OD [facility] [place] [address] [facility] [address] [place] [address] PCP - Ophthalmology Ophthalmology 02/11/13 Denise Woodson Ra, APRN IMAGE ASSEMBLER [address] [place] [address] PCP - General Family Practice 09/21/20 Denise Woodson Ra, APRN IMAGE ASSEMBLER [address] [place] [address] Assigned PCP 07/17/20 documented as of this encounter
--- OUTSIDE RECORDS SUMMARY | 2024-01-13 14:23 | XMS_ITS | Encounter Summary ---
Author Name Unknown Organization [facility] Address [address] [place] [address]. [place] [address] Care Team Providers Care Criminal Attorney Name Role Phone Yung Madrigal MD Unavailable Unavailable Winston Villatoro OD Unavailable [phone] Denise Woodson Ra, APRN VOLUNTEER FIRE FIGHTER Unavailable + [phone] Denise Woodson Ra, APRN VOLUNTEER FIRE FIGHTER Primary Care Provid er Reason for Visit * Reason Comments Medication Refill Encounter Details Date Type Department Care Team (Late st Contact Info) Description 06/11/[address] [place] [address] Denise Woodson Ra, APRN VOLUNTEER FIRE FIGHTER [address] [place], [place] [id number] Medication Refill Social History Tobacco Use Types [...] Description 01/15/2024 3:30 PM CDT Office Visit [facility] [address] [place] [address] Jacque Alexis APRN VOLUNTEER FIRE FIGHTER [address] [place] [address] documented as of this encounter Visit Diagnoses Diagnosis Insomnia, unspecified type documented in this encounter Additional Health Concerns Assessment Noted Time PHQ-9 Depression Total Score: 0 01/05/20 21 9:31 AM CDT documented as of this encounter Care Teams Criminal Attorney Relationship Specialty Start Date End Date Yung Madrigal MD RETIRED PCP - Orthopaedics Orthopedics 08/26/12 Winston Villatoro OD [facility] [place] [address] [facility] [address] [place] [address] PCP - Ophthalmology Ophthalmology 02/11/13 Denise Woodson Ra, APRN VOLUNTEER FIRE FIGHTER [address] [place] [address] PCP - General Family Practice 09/21/20 Denise Woodson Ra, APRN VOLUNTEER FIRE FIGHTER [address] [place] [address] Assigned PCP 07/17/20 documented as of this encounter
--- OUTSIDE RECORDS SUMMARY | 2024-01-13 14:23 | XMS_ITS | Encounter Summary ---
Author Name Unknown Organization [facility] Address [address] [place] [address] Care Team Providers Care Rippler Name Role Phone Yung Madrigal MD Unavailable Unavailable Winston Villatoro OD Unavailable [phone] Denise Woodson Ra, APRN INBOUND CUSTOMER SERVICE AGENT Unavailable + [phone] Denise Woodson Ra, APRN INBOUND CUSTOMER SERVICE AGENT Primary Care Provid er Encounter Details Date Type Department Care Team (Late Contact Info) Description 01/22/2022 [facility] [address] [place] [address] Angelo Escobar Social History Tobacco [...] [facility] [address] [place] [address] Jacque Alexis APRN INBOUND CUSTOMER SERVICE AGENT [address] [place] [address] documented as of this encounter Visit Diagnoses Not on filedocumented in this encounter Additional Health Concerns Assessment Noted Time PHQ-9 Depression Total Score: 0 06/23/20 21 4:11 PM CDT documented as of this encounter Care Teams Rippler Relationship Specialty Start Date End Date Yung Madrigal MD RETIRED PCP - Orthopaedics Orthopedics 08/26/12 Winston Villatoro OD [facility] [place] [address] [facility] [address] [place] [address] PCP - Ophthalmology Ophthalmology 02/11/13 Denise Woodson Ra, APRN INBOUND CUSTOMER SERVICE AGENT [address] [facility] [place] [address] PCP - General Family Practice 09/21/20 Denise Woodson Ra, APRN INBOUND CUSTOMER SERVICE AGENT [address] [facility] [place] [address] Assigned PCP 07/17/20 documented as of this encounter
--- OUTSIDE RECORDS SUMMARY | 2024-01-13 14:23 | XMS_ITS | Encounter Summary ---
Author Name Unknown Organization [facility] Address [address] [place] [address] Care Team Providers Care Food Production Supervisor Name Role Phone Darius Shaw M.D. Primary Care Provider [phone] Encounter Details Date Type Department Care Team (Late st Contact Info) Description 05/12/2013 Historical Ophthalmology [facility] Jonathan Bonilla M.D. [address] [place] [phone] Social History Tobacco Use Types Packs/Day Years [...] corneal thickness CDM Reports - EYEGEN Id: [id number] Status: Fnl documented in this encounter Plan of Treatment Not on file documented as of this encounter Visit Diagnoses Not on filedocumented in this encounter Additional Health Concerns Infection Onset Date Last Indicated Resolved Time COVID19 Pending 07/11/2020 07/11/2020 07/12/2020 5 :56 PM CDT COVID19 Pending 07/17/2020 07/17/2020 07/17/2020 9 :18 PM SUSTAIN ENGINEER COVID19 Pending 09/19/2020 09/19/2020 10/09/2020 4 :45 AM SUSTAIN ENGINEER COVID19 Pending 10/25/2020 10/26/2020 10/27/2020 9 :59 AM SUSTAIN ENGINEER COVID19 Pending 06/03/2021 06/03/2021 06/03/2021 9 :40 AM CDT COVID19 Pending 06/03/2021 06/03/2021 06/03/2021 1 0:36 PM CDT COVID19 Pending 08/09/2021 08/09/2021 08/11/2021 1 2:57 AM SUSTAIN ENGINEER COVID19 Pending 06/26/2022 06/26/2022 06/26/2022 5 :47 PM CDT Assessment Noted Time PHQ-9 Depression Total Score: 8 09/18/19 13 7:41 AM SUSTAIN ENGINEER documented as of this encounter Care Teams Food Production Supervisor Relationship Specialty Start Date End Date Darius Shaw M.D. [address] [address] PCP - General Family Medicine 09/27/22 documented as of this encounter
--- OUTSIDE RECORDS SUMMARY | 2024-01-13 14:23 | XMS_ITS | Referral Summary ---
Author Name Unknown Organization [facility] Address [address] [place] [address] Care Team Providers Care Magazine Designer Name Role Phone Yung Madrigal MD Unavailable Unavailable Winston Villatoro OD Unavailable [phone] Denise Woodson Ra, APRN INSURANCE SOLICITOR Unavailable [phone] Denise Woodson Ra, APRN INSURANCE SOLICITOR Primary Care Provid er Allergies Active Allergy [...] (FLONASE) 50 MCG/ACT nasal sprayIndications:Chr onic rhinitis Bard 2 sprays into both nostrils daily 16 [...] Comments Blood Pressure 108/68 07/27/2021 8:28 AM DIVE SUPERINTENDENT Pulse 68 07/27/2021 8:28 AM DIVE SUPERINTENDENT Temperature 36.9 ??C (98.4 ??F) 07/27/2021 8:28 AM CS T Respiratory Rate 12 07/27/2021 8:28 AM DIVE SUPERINTENDENT Oxygen Saturation 97% 07/27/2021 8:28 AM DIVE SUPERINTENDENT Inhaled Oxygen Concentration - - Weight 99.3 kg (219 lb) 07/27/2021 8:28 AM DIVE SUPERINTENDENT Height 174.6 cm (5' 8.75) 02/08/2021 10:22 AM C DT Body Mass Index 32.58 02/08/2021 10:22 AM CDT Plan of Treatment Upcoming Encounters Date Type Department Care Team (Late st Contact Info) Description 01/15/2024 3:30 PM CDT [facility] [address] [place] [address] Jacque Alexis, BARRERA INSURANCE SOLICITOR [address] [place], [place] [id number] Procedures Procedure Name Priority Date/Time Associated Diagnosis Comments MA SCREENING BILATERAL W/ MAT Routine 04/25/2022 5:03 PM CDT Visit for screening mammogram COMPREHENSIVE METABOLIC PANEL Routine 07/27/2021 8:57 AM DIVE SUPERINTENDENT Routine general medical examination at a [facility] care facility CARDIOVASCULAR SCREENING; LDL GOAL LESS THAN 160 LIPID REFLEX TO DIRECT LDL PANEL Routine 07/27/2021 8:57 AM DIVE SUPERINTENDENT CARDIOVASCULAR SCREENING; LDL GOAL LESS THAN 160 [...] patient. JEVON HOWELL MD Denise Woodson APRN INSURANCE SOLICITOR IMG MAMMOGRA PHY ORDERABLES * (ABNORMAL) Lipid panel reflex to direct LDL Fasting (07/27/2021 8:57 AM DIVE SUPERINTENDENT) Cholesterol 202(H) <200 mg/dL 07/28/2021 10:12 AM DIVE SUPERINTENDENT [facility] Triglycerides 91 <150 mg/dL 07/28/2021 10:12 AM DIVE SUPERINTENDENT [facility] Direct Measure HDL 56 >=50 mg/dL 07/28/2021 10:12 AM DIVE SUPERINTENDENT [facility] LDL Cholesterol Calculated 128(H) <=100 mg/dL 07/28/2021 10:12 AM DIVE SUPERINTENDENT [facility] Non HDL Cholesterol 146(H) <130 mg/dL 07/28/2021 10:12 AM DIVE SUPERINTENDENT [facility] Patient Fasting > 8hrs? Yes 07/28/2021 10:12 AM DIVE SUPERINTENDENT [facility] Blood STRUCTURE OF RIGHT UPPER LIMB / Unknown Venipuncture / Unknown 07/27/2021 8:57 AM DIVE SUPERINTENDENT 07/27/2021 8:57 AM DIVE SUPERINTENDENT Narrative OX LABORATORY - 07/28/2021 10:12 AM DIVE SUPERINTENDENT Cholesterol Desirable: ??<200 mg/dL Triglycerides Normal: ??Less [...] equal to 220 mg/dL Denise Woodson APRN INSURANCE SOLICITOR LAB - BLOOD ORDERABLES OX LABORATORY [facility] [address] Lab (no room number, 1st floor of clinic) [place] [address], [facility] [phone] * Comprehensive metabolic panel (BMP + Alb, Alk Phos, ALT, AST, Total. Bili, TP) (07/27/2021 8:57 AM DIVE SUPERINTENDENT) Sodium 139 133 - 144 mmol/L 07/28/2021 10:12 AM DIVE SUPERINTENDENT [facility] LAB[facility]ATORY Potassium 4.0 3.4 - 5.3 mmol/L 07/28/2021 10:12 AM DIVE SUPERINTENDENT [facility] LAB[facility] Chloride 105 94 - 109 mmol/L 07/28/2021 10:12 AM DIVE SUPERINTENDENT [facility] LAB[facility] Carbon Dioxide (CO2) 26 20 - 32 mmol/L 07/28/2021 10:12 AM DIVE SUPERINTENDENT [facility] Anion Gap 8 3 - 14 mmol/L 07/28/2021 10:12 AM DIVE SUPERINTENDENT [facility] Urea Nitrogen 20 7 - 30 mg/dL 07/28/2021 10:12 AM DIVE SUPERINTENDENT [facility] Creatinine 0.74 0.52 - 1.04 mg/dL 07/28/2021 10:12 AM DIVE SUPERINTENDENT [facility] Calcium 8.8 8.5 - 10.1 mg/dL 07/28/2021 10:12 AM DIVE SUPERINTENDENT [facility] Glucose 95 70 - 99 mg/dL 07/28/2021 10:12 AM DIVE SUPERINTENDENT [facility] LAB[facility] Alkaline Phosphatase 67 40 - 150 U/L 07/28/2021 10:12 AM DIVE SUPERINTENDENT [facility] AST 8 0 - 45 U/L 07/28/2021 10:12 AM DIVE SUPERINTENDENT [facility] ALT 18 0 - 50 U/L 07/28/2021 10:12 AM DIVE SUPERINTENDENT [facility] Protein Total 7.6 6.8 - 8.8 g/dL 07/28/2021 10:12 AM DIVE SUPERINTENDENT [facility] LAB[facility]ORY Albumin 3.4 3.4 - 5.0 g/dL 07/28/2021 10:12 AM DIVE SUPERINTENDENT [facility] LAB[facility]ORY Bilirubin Total 0.5 0.2 - 1.3 mg/dL 07/28/2021 10:12 AM DIVE SUPERINTENDENT [facility] LAB[facility] GFR Estimate >90 >60 mL/min/1.7 3m2 07/28/2021 10:12 AM DIVE SUPERINTENDENT [facility] Comment:As of March 26, 2021, eGFR is calculated by the CKD-EPI creatinine equation, without race adjustment. eGFR can be influenced by muscle mass, exercise, and diet. The reported eGFR is an estimation only and is only applicable if the renal function is stable. Blood STRUCTURE OF RIGHT UPPER LIMB / Unknown Venipuncture / Unknown 07/27/2021 8:57 AM DIVE SUPERINTENDENT 07/27/2021 8:57 AM DIVE SUPERINTENDENT Denise Woodson APRN INSURANCE SOLICITOR LAB - BLOOD ORDERABLES OX LABORATORY [facility] [address] Lab (no room number, 1st floor of clinic) [place] [address], [facility] [phone] from Last 3 Months or Most Recently Relevant to Health Maintenance Care Teams Magazine Designer Relationship Specialty Start Date End Date Yung Madrigal MD RETIRED PCP - Orthopaedics Orthopedics 08/26/12 Winston Villatoro OD [facility] [address] [facility] [address] [place] [address] PCP - Ophthalmology Ophthalmology 02/11/13 Denise Woodson Ra, APRN INSURANCE SOLICITOR [address] [place] [address] PCP - General Family Practice 09/21/20 Denise Woodson Ra, APRN INSURANCE SOLICITOR [address] [place] [id number] Assigned PCP 07/17/20
--- OUTSIDE RECORDS SUMMARY | 2024-01-13 14:23 | XMS_ITS | Encounter Summary ---
Author Name Unknown Organization [facility] Address [address] [place] [address] Care Team Providers Care Clothing Presser Name Role Phone Yung Madrigal MD Unavailable Unavailable Winston Villatoro OD Unavailable [phone] Serum, Clara Garland MD Primary Care Provider Serum, Clara Garland MD Unavailable [phone] Denise Woodson Ra, APRN ELEMENTARY ASSISTANT PRINCIPAL Unavailable [phone] Denise Woodson Ra, APRN ELEMENTARY ASSISTANT PRINCIPAL Primary Care Provid er Encounter Details Date Type Department Care Team (Late st Contact Info) Description 06/16/2019 MyC Medical Advice [address] [place] [address] Serum, Clara Garland MD [address] [place] [address] Social History Tobacco Use Types [...] Description 01/15/2024 3:30 PM CDT Office Visit [address] [address] Jacque Alexis APRN ELEMENTARY ASSISTANT PRINCIPAL [address] [place] [address] documented as of this encounter Visit Diagnoses Not on filedocumented in this encounter Additional Health Concerns Assessment Noted Time PHQ-9 Depression Total Score: 0 06/15/20 19 7:09 PM CDT documented as of this encounter Care Teams Clothing Presser Relationship Specialty Start Date End Date Yung Madrigal MD RETIRED PCP - Orthopaedics Orthopedics 08/26/12 Winston Villatoro OD [facility] [place] [address] [place] [address] PCP - Ophthalmology Ophthalmology 02/11/13 Clara Cornell MD [facility] [place] [address] [place] [address] PCP - General Internal Medicine 02/07/17 09/20/20 Denise Woodson Ra, APRN ELEMENTARY ASSISTANT PRINCIPAL [address] [place] [address] PCP - General Family Practice 09/21/20 Clara Cornell MD [address] [place] [address] Assigned PCP 01/17/17 07/16/20 Denise Woodson Ra, APRN ELEMENTARY ASSISTANT PRINCIPAL [address] [place] [address] Assigned PCP 07/17/20 documented as of this encounter
--- OUTSIDE RECORDS SUMMARY | 2024-01-13 14:23 | XMS_ITS | Encounter Summary ---
Author Name Unknown Organization [facility] Address [address] [place] [address]. [place] [address] Care Team Providers Care Hammer Repairer Name Role Phone Yung Madrigal MD Unavailable Unavailable Winston Villatoro OD Unavailable Denise Woodson Ra, APRN MAJOR ACCOUNT MANAGER Unavailable Denise Woodson Ra, APRN MAJOR ACCOUNT MANAGER Primary Care Provid er Encounter Details Date Type Department Care Team (Late st Contact Info) Description 06/13/2021 [facility] Medical Advice [facility] [address] [place] [address] Denise Woodson Ra, APRN MAJOR ACCOUNT MANAGER [address] [place] [address] Insomnia, unspecified type Social History [...] a refill on file. Prescription approved per [facility] protocol. Mary Caraballo RN on 06/13/2021 at 5:18 PM documented in this encounter Plan of Treatment Upcoming Encounters Date Type Department Care Team (Late st Contact Info) Description 01/15/2024 3:30 PM CDT Office Visit [facility] [address] [place] [address] Jacque Alexis APRN MAJOR ACCOUNT MANAGER [address] [place] [address] documented as of this encounter Visit Diagnoses Diagnosis Insomnia, unspecified type documented in this encounter Additional Health Concerns Assessment Noted Time PHQ-9 Depression Total Score: 0 01/05/20 21 9:31 AM CDT documented as of this encounter Care Teams Hammer Repairer Relationship Specialty Start Date End Date Yung Madrigal MD RETIRED PCP - Orthopaedics Orthopedics 08/26/[address] [facility] [place] [address] [place] [address] PCP - Ophthalmology Ophthalmology 02/11/13 Denise Woodson Ra, APRN MAJOR ACCOUNT MANAGER [address] [place] [address] PCP - General Family Practice 09/21/20 Denise Woodson Ra, APRN MAJOR ACCOUNT MANAGER [address] [place] [id number] Assigned PCP 07/17/20 documented as of this encounter
--- OUTSIDE RECORDS SUMMARY | 2024-01-13 14:23 | XMS_ITS | Encounter Summary ---
Author Name Unknown Organization [facility] Address [address] [place] [address]. [place] [address] Care Team Providers Care Narrow Fabrics Weaver Name Role Phone Yung Madrigal MD Unavailable Unavailable Winston Villatoro OD Unavailable Denise Woodson Ra, APRN THEATRE MANAGER Unavailable Denise Woodson Ra, APRN THEATRE MANAGER Primary Care Provid er Reason for Visit * Reason Onset Date Comments MyChart Communication 06/08/2021 Abdominal pain Encounter Details Date Type Department Care Team (Late Contact Info) Description 06/08/2021 MyC Medical Advice [facility] [place] [address] [place] [address] Denise Woodson Ra, APRN THEATRE MANAGER [address] [place] [address] MyChart Communication (Abdominal pain) Social [...] Upcoming Encounters Date Type Department Care Team ([facility] Contact Info) Description 01/15/2024 3:30 PM CDT Office Visit [facility] [place] [address] [place] [address] Jacque Alexis APRN THEATRE MANAGER [address] [place] [address] documented as of this encounter Visit Diagnoses Not on filedocumented in this encounter Additional Health Concerns Assessment Noted Time PHQ-9 Depression Total Score: 0 01/05/20 21 9:31 AM CDT documented as of this encounter Care Teams Narrow Fabrics Weaver Relationship Specialty Start Date End Date Yung Madrigal MD RETIRED PCP - Orthopaedics Orthopedics 08/26/12 Winston Villatoro OD [facility] [place] [address] [facility] [address] [place] [address] PCP - Ophthalmology Ophthalmology 02/11/13 Denise Woodson Ra, APRN THEATRE MANAGER [address] [place] [address] PCP - General Family Practice 09/21/20 Denise Woodson Ra, APRN THEATRE MANAGER [address] [place] [address] Assigned PCP 07/17/20 documented as of this encounter
--- OUTSIDE RECORDS SUMMARY | 2024-01-13 14:23 | XMS_ITS | Encounter Summary ---
Author Name Unknown Organization [facility] Address [address] [place] [address]. [place] [address] Care Team Providers Care Health Science Instructor Name Role Phone Yung Madrigal MD Unavailable Unavailable Winston Villatoro OD Unavailable [phone] Denise Woodson Ra, APRN MOUNTAIN OR GLACIER GUIDE Unavailable + [phone] Denise Woodson Ra, APRN MOUNTAIN OR GLACIER GUIDE Primary Care Provid er Reason for Visit * Reason Onset Date Comments URI 09/21/2020 Encounter Details Date Type Department Care Team (Late st Contact Info) Description 09/21/2020 [facility] [place] [facility] [address] [place] [address] Denise Woodson Ra, APRN MOUNTAIN OR GLACIER GUIDE [address] [place] [address] URI Social History Tobacco Use [...] COVID-19? No / Unsure 09/21/2020 12:04 PM DENTAL APPLIANCE FIXER documented as of this encounter Miscellaneous Notes * Telephone Encounter - Kati Yang RN - 09/21/2020 10:54 AM CST TwitJump message sent to patient. Kati Yang RN [place] APPLIANCE FIXER documented in this encounter Plan of Treatment Upcoming Encounters Date Type Department Care Team (Late st Contact Info) Description 01/15/2024 3:30 PM CDT [facility] [address] [place] [address] Jacque Alexis APRN MOUNTAIN OR GLACIER GUIDE [address] [place], [place] [phone] documented as of this encounter Visit Diagnoses Not on filedocumented in this encounter Additional Health Concerns Assessment Noted Time PHQ-9 Depression Total Score: 0 06/15/20 19 7:09 PM CDT documented as of this encounter Care Teams Health Science Instructor Relationship Specialty Start Date End Date Yung Madrigal MD RETIRED PCP - Orthopaedics Orthopedics 08/26/12 Winston Villatoro OD [facility] [place] [address] [facility] [address] [address] [place] [address] PCP - Ophthalmology Ophthalmology 02/11/13 Denise Woodson Ra, APRN MOUNTAIN OR GLACIER GUIDE [address] [place] [address] PCP - General Family Practice 09/21/20 Denise Woodson Ra, APRN MOUNTAIN OR GLACIER GUIDE [address] [place] [id number] Assigned PCP 07/17/20 documented as of this encounter
--- OUTSIDE RECORDS SUMMARY | 2024-01-13 14:23 | XMS_ITS | Clinical Summary ---
Author Name Unknown Organization [facility] Address [place], [place] [address] Care Team Providers Care Marketing Area Manager Name Role Phone Keira Irvin MD Primary [...] durable medical equipment (DME)Indications: Plantar fasciitis, bilateral [id number] Plantar Fasciitis, night splint, Large 1 Each [...] Encounters Date Type Department Care Team Description 01/13/2024 Telephone [facility] [address] [place] [phone] Anastasia Walden NP Questions 01/10/2024 Orders Only [facility] [address], [place] [phone] Timoteo Gutierrez MD <No scans attached> 01/10/2024 Telephone [facility] [address], [place] [phone] Aby Saxena NP Follow Up 01/09/2024 1:20 PM CDT - 01/09/2024 3:30 PM CDT Hospital Encounter [facility] [address] [place], [place] [phone] Timoteo Gutierrez MD AVF (arteriovenous fistula) (HC) (Primary Dx); Tinnitus, left ear; Headache Discharge Disposition: Home Self Care 01/09/2024 Travel from Last 3 Months Immunizations Name Administration Dates Next Due COVID-19 vaccine (dakick 30mcg/0.3mL) CORKY ROSARIO 07/07/2021 Hepatitis B, Unspecified [...] 01/09/2024 7:30 AM CDT Plan of Treatment Upcoming Encounters Date Type Department Care Team (Late st Contact Info) Description 02/03/2024 7:30 AM CDT Appointment [facility] [address] [place] [address] Health Maintenance Due Date Last Done Comments [...] REFLEX MEASURED LDL Routine 08/03/2011 10:31 AM HOTEL GENERAL MANAGER Screening for other and unspecified cardiovascular conditions from Last 3 Months or Most Recently Relevant to Health Maintenance Results * CT ANGIO HEAD AND NECK CAROTID (01/09/2024 12:02 PM CDT) Anatomical Region Laterality Modality BRAIN, NECK Computed Tomogra phy 01/09/2024 1:12 PM CDT Addenda Addendum by Len Randolph MD on 01/09/2024 1:15 PM CDT For Patients: ??As a result of the Cures Act, medical imaging exams and procedure [...] For Patients: ??As a result of the 21st Century Cures Act, medical imaging exams and [...] For Patients: As a result of the Cures Act, medical imagingexams and procedure reports [...] of the examination. Timoteo Gutierrez M.D. Neurointerventionalist [facility] Pager: Office/Appointments: Answering Service: [facility]: [email or web address] Narrative 01/09/2024 9:57 AM CDT PHYSICIAN: Timoteo Gutierrez DATE: 01/09/2024. PROCEDURE: CEREBRAL ANGIOGRAM Selective catheter placement, right internal carotid artery, with angiography of the intracranial carotid circulation (CPT 61406) Selective catheter placement, right external carotid artery, with angiography of the external carotid circulation (CPT +25052) Selective catheter placement, left internal carotid artery, with angiography of the intracranial carotid circulation (CPT 55976) Selective catheter placement, left external carotid artery, with angiography of the external carotid circulation (CPT +81942) Selective catheter placement, right vertebral artery, with angiography of the vertebral circulation (CPT 13124) Selective catheter placement, left vertebral artery, with angiography of the vertebral circulation (CPT 07154) Ultrasound guidance for vascular access: right radial artery access (CPT +55735) Monitored conscious sedation: 50min (CPT 80566, CPT +50078 x2) CLINICAL HISTORY: 48 year-old female with [...] right radial percutaneous arterial puncture and a 5-Maori sheath was placed. After infusion of a heparin, verapamil and nitroglycerin cocktail via the sheath, contrast was then injected via the sheath to assess the arterial anatomy in the right forearm. Subsequently using a 5-Maori angled tip catheter and glidewire combination, selective [...] The anterior communicating artery is ??opacified from [id number]. The capillary, venous, and venous sinus phases [...] ??The anterior communicating artery is opacified from [id number]. Right vertebral artery injection: There is normal [...] W REFLEX MEASURED LDL (08/03/2011 10:31 AM HOTEL GENERAL MANAGER) [facility] CHOLESTEROL,TOTAL 171 110 - 199 mg/dL [facility] TRIGLYCERIDES 67 <150 mg/dL [facility] HDL CHOLESTEROL 43 >40 mg/dL [facility] CHOL/HDL RATIO 3.98 <4.51 [facility] LDL CHOLESTEROL 115 <131 mg/dL [facility] PATIENT STATUS Fasting [facility] Blood specimen (specimen) BLOOD SPECIMEN / Unknown 08/03/2011 10:31 AM HOTEL GENERAL MANAGER 08/03/2011 10:23 AM HOTEL GENERAL MANAGER Jasvir Pickens MD CHEMISTRY [facility] [address] [place] [address] from Last 3 Months or Most Recently Relevant to Health Maintenance Advance Directives * Full Code (Latest Code Status on File) Date Activated Date Inactivated Comments 01/09/2024 7:44 AM 01/09/2024 6:26 PM Question Answer Comments Code Status Discussion: Reviewed Preferences Care Teams Marketing Area Manager Relationship Specialty Start Date End Date Keira Irvin MD [address] [place] [address] PCP - General Family Practice 01/08/24
--- OUTSIDE RECORDS SUMMARY | 2024-01-13 14:23 | XMS_ITS | Encounter Summary ---
Author Name Unknown Organization [facility] Address [address] [place] [address]. [place] [address] Care Team Providers Care Batch Dumper Name Role Phone Yung Madrigal MD Unavailable Unavailable Winston Villatoro OD Unavailable Denise Woodson Ra, APRN WILDLIFE FORENSIC GENETICIST Unavailable + [phone] Denise Woodson Ra, APRN WILDLIFE FORENSIC GENETICIST Primary Care Provid er Reason for Visit * Reason Comments Medication Refill Encounter Details Date Type Department Care Team (Late st Contact Info) Description 02/19/2022 Refill [facility] [address] [place] [address] Denise Woodson Ra, APRN WILDLIFE FORENSIC GENETICIST [address] [place] [address] Medication Refill Social History Tobacco [...] PM CDT Office Visit [facility] [address] [facility] [place] [address] Jacque Alexis APRN WILDLIFE FORENSIC GENETICIST [address] [place] [address] documented as of this encounter Visit Diagnoses Diagnosis Moderate persistent asthma without complication Unspecified asthma documented in this encounter Additional Health Concerns Assessment Noted Time PHQ-9 Depression Total Score: 0 06/23/20 21 4:11 PM CDT documented as of this encounter Care Teams Batch Dumper Relationship Specialty Start Date End Date Yung Madrigal MD RETIRED PCP - Orthopaedics Orthopedics 08/26/12 Winston Villatoro OD [facility] [address] [facility] [address] [place] [address] PCP - Ophthalmology Ophthalmology 02/11/13 Denise Woodson Ra, APRN WILDLIFE FORENSIC GENETICIST [address] [place] [address] PCP - General Family Practice 09/21/20 Denise Woodson Ra, APRN WILDLIFE FORENSIC GENETICIST [address] [place] [address] Assigned PCP 07/17/20 documented as of this encounter
--- OUTSIDE RECORDS SUMMARY | 2024-01-13 14:23 | XMS_ITS | Encounter Summary ---
Author Name Unknown Organization [facility] Address [address] [place] [address] Care Team Providers Care Pump Servicer Name Role Phone Yung Madrigal MD Unavailable Unavailable Winston Villatoro OD Unavailable [phone] Denise Woodson Ra, APRN SHELL TRIM OPERATOR Unavailable + [phone] Denise Woodson Ra, APRN SHELL TRIM OPERATOR Primary Care Provid er Encounter Details Date Type Department Care Team (Late st Contact Info) Description 01/10/2023 [facility] [address] [place] [address] Arianna Lo Social History Tobacco [...] Description 01/15/2024 3:30 PM CDT [facility] [address] [place] [address] Jacque Alexis APRN SHELL TRIM OPERATOR [address] [place] [address] documented as of this encounter Visit Diagnoses Not on filedocumented in this encounter Additional Health Concerns Assessment Noted Time PHQ-9 Depression Total Score: 0 06/23/20 21 4:11 PM CDT documented as of this encounter Care Teams Pump Servicer Relationship Specialty Start Date End Date Yung Madrigal MD RETIRED PCP - Orthopaedics Orthopedics 08/26/12 Winston Villatoro OD [facility] [place] [address] [place] [address] PCP - Ophthalmology Ophthalmology 02/11/13 Denise Woodson Ra, APRN SHELL TRIM OPERATOR [address] [place] [address] PCP - General Family Practice 09/21/20 Denise Woodson Ra, APRN SHELL TRIM OPERATOR [address] [place] [address] Assigned PCP 07/17/20 documented as of this encounter
--- OUTSIDE RECORDS SUMMARY | 2024-01-13 14:24 | XMS_ITS | Encounter Summary ---
Author Name Unknown Organization [facility] Address [address] [place] [address] Care Team Providers Care Plant Biology Professor Name Role Phone Timmy Perez MD Unavailable Unavailable Encounter Details Date Type Department Care Team (Late st Contact Info) Description 01/17/2012 3:20 PM CDT [facility] in [address] [phone] Luis Walsh [address] [place] [address] Interface, MD [place] Social History Tobacco Use [...] 3:30 PM CDT [facility] [address] [place] [phone] Jacque Alexis APRN [facility] [address] [place] [address] documented as of this encounter Visit Diagnoses Not on filedocumented in this encounter Care Teams Plant Biology Professor Relationship Specialty Start Date End Date Timmy Perez MD PCP - Obstetrics/Gynecology 03/02/0807/18 documented as of this encounter
--- OUTSIDE RECORDS SUMMARY | 2024-01-13 14:24 | XMS_ITS | Encounter Summary ---
Author Name Unknown Organization [facility] Address [address] [place] [address] Care Team Providers Care Passenger Relations Representative Name Role Phone Timmy Perez MD Unavailable Unavailable Yung Madrigal MD Unavailable Unavailable Frw, None Primary Care Provider Unavailrigoberto e Winston Villatoro OD Unavailable [phone] Apple Sykes MD Primary Care Provider [phone] Westley Bates MD Unavailable [phone] GeorginaAlessandra Gómez APRN BOILER HOUSE SUPERVISOR Primary Car e Provider Serum, Clara Garland MD Primary Care Provider Serum, Clara Garland MD Unavailable [phone] Serum, Clara Garland MD Unavailable [phone] Denise Woodson Ra, APRN BOILER HOUSE SUPERVISOR Unavailable + [phone] Denise Woodson Ra, APRN BOILER HOUSE SUPERVISOR Primary Care Provid er Encounter Details Date Type Department Care Team (Late st Contact Info) Description 01/30/2006 [facility] in [place] Inpatient Dept [address] [place] [address] Frw, Inpatient Provider Social History Tobacco Use [...] pain. PROCEDURE: TOTAL VAGINAL HYSTERECTOMY. SURGEON: Chris SLUBBER MACHINE OPERATOR: Radha ANESTHESIA: Spinal ESTIMATED BLOOD LOSS: [...] Description 01/15/2024 3:30 PM CDT [facility] [address] [place] [address] Jacque Alexis APRN BOILER HOUSE SUPERVISOR [address] [place] [address] documented as of this encounter Visit Diagnoses Not on filedocumented in this encounter Care Teams Passenger Relations Representative Relationship Specialty Start Date End Date Timmy Perez MD PCP - Obstetrics/Gynecology 03/02/08 08/07/15 Yung Madrigal MD RETIRED PCP - Orthopaedics Orthopedics 08/26/12 Frw, None PCP - General Family Practice 08/26/12 05/03/13 Winston Villatoro, OD [facility] [place] [address] [place] [address] PCP - Ophthalmology Ophthalmology 02/11/13 Apple Sykes MD [facility] [place] [address] [place] [address] PCP - General Family Practice 05/04/13 10/25/16 Westley Bates MD XXX RETIRED XXX [address] [place] [address] PCP - ENT Otolaryngology 05/14/13 07/28/18 Alessandra Cabrales APRN BOILER HOUSE SUPERVISOR [address] [facility] [place] [address] PCP - General Nurse Practitioner 10/26/16 02/06/17 Clara Cornell MD [address] [facility] [place] [address] PCP - General Internal Medicine 02/07/17 09/20/20 Clara Cornell MD [address] [place] [address] PCP - Assigned PCP 01/17/17 11/18/18 Denise Woodson Ra, APRN BOILER HOUSE SUPERVISOR [address] [place] [address] PCP - General Family Practice 09/21/20 Clara Cornell MD [address] [place] [address] Assigned PCP 01/17/17 07/16/20 Denise Woodson Ra, APRN BOILER HOUSE SUPERVISOR [address] [place] [address] Assigned PCP 07/17/20 documented as of this encounter
--- OUTSIDE RECORDS SUMMARY | 2024-01-13 14:24 | XMS_ITS | Encounter Summary ---
Author Name Unknown Organization [facility] Address [address] [place] [address] Care Team Providers Care Hospital Administrator Name Role Phone Timmy Perez MD Unavailable Unavailable Yung Madrigal MD Unavailable Unavailable Winston Villatoro OD Unavailable [phone] Apple Sykes MD Primary Care Provider [phone] Westley Bates MD Unavailable [phone] Alessandra Cabrales APRN AVIATION CONSULTANT Primary Car e Provider Serum, Clara Garland MD Primary Care Provider Serum, Clara Garland MD Unavailable Serum, Claar Garland MD Unavailable Denise Woodson Ra, APRN AVIATION CONSULTANT Unavailable [phone] Denise Woodson Ra, APRN, CNP Primary Care Provid er Reason for Visit * Reason Onset Date Comments MyChart Communication 05/30/2013 Encounter Details Date Type Department Care Team (Latest Contact Info) Description 05/30/2013 MyC Medical Advice [facility] in [facility] [address] [place] [address] Apple Sykes MD [address] [place] [address] MyChart Communication Social History Tobacco Use Types [...] Description 01/15/2024 3:30 PM CDT Office Visit [facility] [address] [place] [address] Jacque Alexis APRN AVIATION CONSULTANT [address] [place] [address] documented as of this encounter Visit Diagnoses Not on filedocumented in this encounter Care Teams Hospital Administrator Relationship Specialty Start Date End Date Timmy Perez MD PCP - Obstetrics/Gynecology 03/02/08 08/07/15 Yung Madrigal MD RETIRED PCP - Orthopaedics Orthopedics 08/26/12 Winston Villatoro OD [facility] [place] [address] [place] [address] PCP - Ophthalmology Ophthalmology 02/11/13 Apple Sykes MD [facility] [place] [address] [place] [address] PCP - General Family Practice 05/04/13 10/25/16 Westley Bates MD XXX RETIRED XXX [address] [place] [address] PCP - ENT Otolaryngology 05/14/13 07/28/18 Alessandra Cabrales APRN AVIATION CONSULTANT [address] [place] [address] [place] [address] PCP - General Nurse Practitioner 10/26/16 02/06/17 Clara Cornell MD [address] [facility] [place] [address] PCP - General Internal Medicine 02/07/17 09/20/20 Clara Cornell MD [address]75 [place] [address] PCP - Assigned PCP 01/17/17 11/18/18 Denise Woodson Ra, APRN AVIATION CONSULTANT [address] [place] [address] PCP - General Family Practice 09/21/20 Clara Cornell MD [address] [facility] [place] [address] Assigned PCP 01/17/17 07/16/20 Denise Woodson Ra, APRN AVIATION CONSULTANT [address] [place] [address] Assigned PCP 07/17/20 documented as of this encounter
--- OUTSIDE RECORDS SUMMARY | 2024-01-13 14:24 | XMS_ITS | Encounter Summary ---
Author Name Unknown Organization [facility] Address [address] [place] [address] Care Team Providers Care High Court Justice Name Role Phone Timmy Perez MD Unavailable Unavailable Yung Madrigal MD Unavailable Unavailable Frw, None Primary Care Provider Unavailabl e Winston Villatoro OD Unavailable [phone] Apple Sykes MD Primary Care Provider [phone] Westley Bates MD Unavailable Alessandra Cabrales APRN REFLEXOLOGIST Primary Car e Provider Serum, Clara Garland MD Primary Care Provider Serum, Clara Garland MD Unavailable [phone] Serum, Clara Garland MD Unavailable [phone] Denise Woodson Ra, APRN REFLEXOLOGIST Unavailable [phone] Denise Woodson Ra, APRN REFLEXOLOGIST Primary Care Provid er Encounter Details Date Type Department Care Team (Late st Contact Info) Description 01/31/2006 [facility] in [place] PLANNING ASSISTANT [address] [place] [phone] Timmy Perez MD Social History Tobacco Use [...] PM CDT Office Visit [facility] [address] [place] [address] Jacque Alexis APRN REFLEXOLOGIST [address] [place] [address] documented as of this encounter Visit Diagnoses Not on filedocumented in this encounter Care Teams High Court Justice Relationship Specialty Start Date End Date Timmy Perez MD PCP - Obstetrics/Gynecology 03/02/08 08/07/15 Yung Madrigal MD RETIRED PCP - Orthopaedics Orthopedics 08/26/12 Frw, None PCP - General Family Practice 08/26/12 05/03/13 Winston Villatoro OD [facility] [place] [address] [place] [address] PCP - Ophthalmology Ophthalmology 02/11/13 Apple Sykes MD [facility] [place] [address] [place] [address] PCP - General Family Practice 05/04/13 10/25/16 Westley Bates MD XXX RETIRED XXX [address] [facility] [address] [place] [address] PCP - ENT Otolaryngology 05/14/13 07/28/18 Alessandra Cabrales APRN REFLEXOLOGIST [address] [facility] [place] [address] PCP - General Nurse Practitioner 10/26/16 02/06/17 Clara Cornell MD [address] [facility] [place] [address] PCP - General Internal Medicine 02/07/17 09/20/20 Clara Cornell MD [address] [place] [address] PCP - Assigned PCP 01/17/17 11/18/18 Denise Woodson Ra, APRN REFLEXOLOGIST [address] [place] [address] PCP - General Family Practice 09/21/20 Clara Cornell MD [address] [place] [address] Assigned PCP 01/17/17 07/16/20 Denise Woodson Ra, APRN REFLEXOLOGIST [address] [place] [address] Assigned PCP 07/17/20 documented as of this encounter
--- OUTSIDE RECORDS SUMMARY | 2024-01-13 14:24 | XMS_ITS | Encounter Summary ---
Author Name Unknown Organization [facility] Address [address] [place] [address] Care Team Providers Care Heat Treatment Technician Name Role Phone Timmy Perez MD Unavailable Unavailable Yung Madrigal MD Unavailable Unavailable Winston Villatoro OD Unavailable [phone] Apple Sykes MD Primary Care Provider [phone] Westley Bates MD Unavailable [phone] Alessandra Cabrales APRN CUSTOMER EXPERIENCE RETAIL CLERK Primary Car e Provider Serum, Clara Garland MD Primary Care Provider Serum, Clara Garland MD Unavailable [phone] Serum, Clara Garland MD Unavailable [phone] Denise Woodson Ra, APRN CUSTOMER EXPERIENCE RETAIL CLERK Unavailable + [phone] Denise Woodson Ra, APRN, CNP Primary Care Provid er Encounter Details Date Type Department Care Team (Late st Contact Info) Description 05/19/2013 MyC Medical Advice [facility] in [place] Orthopedics [address] [place] [phone] Yung Madrigal MD RETIRED Social History Tobacco [...] 3:30 PM CDT Office Visit [facility] [address] [place] [address] Jacque Alexis APRN CUSTOMER EXPERIENCE RETAIL CLERK [address] [place] [address] documented as of this encounter Visit Diagnoses Not on filedocumented in this encounter Care Teams Heat Treatment Technician Relationship Specialty Start Date End Date Timmy Perez MD PCP - Obstetrics/Gynecology 03/02/08 08/07/15 Yung Madrigal MD RETIRED PCP - Orthopaedics Orthopedics 08/26/12 Winston Villatoro OD [facility] [place] [address] [place] [address] PCP - Ophthalmology Ophthalmology 02/11/13 Apple Sykes MD [facility] [place] [address] [place] [address] PCP - General Family Practice 05/04/13 10/25/16 Westley Bates MD XXX RETIRED XXX [address] [place] [address] PCP - ENT Otolaryngology 05/14/13 07/28/18 Alessandra Cabrales APRN CUSTOMER EXPERIENCE RETAIL CLERK [address] [facility] [place] [address] PCP - General Nurse Practitioner 10/26/16 02/06/17 Clara Cornell MD [address] [facility] [place] [address] PCP - General Internal Medicine 02/07/17 09/20/20 Clara Cornell MD 8675 [place] [address] PCP - Assigned PCP 01/17/17 11/18/18 Denise Woodson Ra, APRN CUSTOMER EXPERIENCE RETAIL CLERK [address] [place] [address] PCP - General Family Practice 09/21/20 Clara Cornell MD [address] [place] [address] Assigned PCP 01/17/17 07/16/20 Denise Woodson Ra, APRN CUSTOMER EXPERIENCE RETAIL CLERK [address] [place] [address] Assigned PCP 07/17/20 documented as of this encounter
--- OUTSIDE RECORDS SUMMARY | 2024-01-13 14:24 | XMS_ITS | Encounter Summary ---
Author Name Unknown Organization [facility] Address [address] [place] [address] Care Team Providers Care Shaper Machine Hand Name Role Phone Timmy Perez MD Unavailable Unavailable Yung Madrigal MD Unavailable Unavailable Frw, None Primary Care Provider Unavailrigoberto e Winston Villatoro OD Unavailable [phone] Apple Sykes MD Primary Care Provider [phone] Westley Bates MD Unavailable [phone] Alessandra Cabrales APRN CONCRETE PLACEMENT EQUIPMENT OPERATOR Primary Car e Provider Serum, Clara Garland MD Primary Care Provider Serum, Clara Garland MD Unavailable [phone] Serum, Clara Garland MD Unavailable Denise Woodson Ra, APRN CONCRETE PLACEMENT EQUIPMENT OPERATOR Unavailable [phone] Denise Woodson Ra, APRN CONCRETE PLACEMENT EQUIPMENT OPERATOR Primary Care Provid er Reason for Visit * Reason Onset Date Comments Medication Question 04/21/2013 Farhan Saez [facility] Encounter Details Date Type Department Care Team (Late st Contact Info) Description 04/21/2013 Telephone [facility] in [facility] [address] [place] [address] [place] [address] Janna Rodriguez, records management coordinator Question (Farhan [facility]) Social History Tobacco Use Types Packs/Day [...] Office Visit [facility] [address] [place] [address] Jacque Alexis APRN CONCRETE PLACEMENT EQUIPMENT OPERATOR [address] [place], [place] [address] documented as of this encounter Visit Diagnoses Not on filedocumented in this encounter Care Teams Shaper Machine Hand Relationship Specialty Start Date End Date Timmy Perez MD PCP - Obstetrics/Gynecology 03/02/08 08/07/15 Yung Madrigal MD RETIRED PCP - Orthopaedics Orthopedics 08/26/12 Frw, None PCP - General Family Practice 08/26/12 05/03/13 Winston Villatoro OD [facility] [place] [address] [place] [address] PCP - Ophthalmology Ophthalmology 02/11/13 Apple Sykes MD [facility] [place] [address] [place] [address] PCP - General Family Practice 05/04/13 10/25/16 Westley Bates MD XXX RETIRED XXX [address] [place] [address] PCP - ENT Otolaryngology 05/14/13 07/28/18 GeorginaAlessandra Gómez APRN CONCRETE PLACEMENT EQUIPMENT OPERATOR [address] [facility] [place] [address] PCP - General Nurse Practitioner 10/26/16 02/06/17 Clara Cornell MD [address] [facility] [place] [address] PCP - General Internal Medicine 02/07/17 09/20/20 Clara Cornell MD [address] [place] [address] PCP - Assigned PCP 01/17/17 11/18/18 Denise Woodson Ra, RESEARCH INVESTIGATOR CONCRETE PLACEMENT EQUIPMENT OPERATOR [address] [place] [address] PCP - General Family Practice 09/21/20 Clara Cornell MD [address] [place] [address] Assigned PCP 01/17/17 07/16/20 Denise Woodson Ra, RESEARCH INVESTIGATOR CONCRETE PLACEMENT EQUIPMENT OPERATOR [address] [place] [address] Assigned PCP 07/17/20 documented as of this encounter
--- OUTSIDE RECORDS SUMMARY | 2024-01-13 14:24 | XMS_ITS | Encounter Summary ---
Author Name Unknown Organization [facility] Address [address] [place] [address] Care Team Providers Care Ride Mechanic Name Role Phone Yung Madrigal MD Unavailable Unavailable Winston Villatoro OD Unavailable [phone] Serum, Clara Garland MD Primary Care Provider Serum, Clara Garland MD Unavailable [phone] Denise Woodson Ra, APRN WESTERN TACK ASSEMBLY LINE WORKER Unavailable [phone] Denise Woodson Ra, APRN WESTERN TACK ASSEMBLY LINE WORKER Primary Care Provid er Encounter Details Date Type Department Care Team (Late st Contact Info) Description 01/21/2019 MyC Medical Advice [address] [place] [phone] [facility] Social History Tobacco Use Types [...] 3:30 PM CDT Office Visit [facility] [address] [place] [address] Jacque Alexis APRN WESTERN TACK ASSEMBLY LINE WORKER [address] [place] [address] documented as of this encounter Visit Diagnoses Not on filedocumented in this encounter Additional Health Concerns Assessment Noted Time PHQ-9 Depression Total Score: 0 02/09/20 17 7:29 AM CDT documented as of this encounter Care Teams Ride Mechanic Relationship Specialty Start Date End Date Yung Madrigal MD RETIRED PCP - Orthopaedics Orthopedics 08/26/12 Winston Villatoro OD [facility] [place] [address] [place] [address] PCP - Ophthalmology Ophthalmology 02/11/13 Clara Cornell MD [facility] [place] [address] [place] [address] PCP - General Internal Medicine 02/07/17 09/20/20 Denise Woodson Ra, APRN WESTERN TACK ASSEMBLY LINE WORKER [address] [place] [address] PCP - General Family Practice 09/21/20 Clara Cornell MD [address] [place] [address] Assigned PCP 01/17/17 07/16/20 Denise Woodson Ra, APRN WESTERN TACK ASSEMBLY LINE WORKER [address] [place] [address] Assigned PCP 07/17/20 documented as of this encounter
--- OUTSIDE RECORDS SUMMARY | 2024-01-13 14:24 | XMS_ITS | Encounter Summary ---
Author Name Unknown Organization [facility] Address [address] [place] [address] Care Team Providers Care Cane Burner Name Role Phone Timmy Perez MD Unavailable Unavailable Yung Madrigal MD Unavailable Unavailable Winston Villatoro OD Unavailable [phone] Apple Sykes MD Primary Care Provider [phone] Westley Bates MD Unavailable [phone] Alessandra Cabrales APRN SPRAY MACHINE OPERATOR Primary Car e Provider Serum, Clara Garland MD Primary Care Provider Serum, Clara Garland MD Unavailable [phone] Serum, Clara Garland MD Unavailable [phone] Denise Woodson Ra, APRN SPRAY MACHINE OPERATOR Unavailable + [phone] Denise Woodson Ra, APRN, CNP Primary Care Provid er Encounter Details Date Type Department Care Team (Late st Contact Info) Description 05/26/2013 MyC Medical Advice [facility] in [place] Orthopedics [address] [place] [phone] Yung Madrigal MD RETIRED Social History Tobacco [...] Description 01/15/2024 3:30 PM CDT Office Visit [facility] [address] [place] [address] Jacque Alexis APRN SPRAY MACHINE OPERATOR [address] [place] [address] documented as of this encounter Visit Diagnoses Not on filedocumented in this encounter Care Teams Cane Burner Relationship Specialty Start Date End Date Timmy Perez MD PCP - Obstetrics/Gynecology 03/02/08 08/07/15 Yung Madrigal MD RETIRED PCP - Orthopaedics Orthopedics 08/26/12 Winston Villatoro OD [facility] [place] [address] [place] [address] PCP - Ophthalmology Ophthalmology 02/11/13 Apple Sykes MD [facility] [place] [address] [place] [address] PCP - General Family Practice 05/04/13 10/25/16 Westley Bates MD XXX RETIRED XXX [address] [place] [address] PCP - ENT Otolaryngology 05/14/13 07/28/18 Alessandra Cabrales APRN SPRAY MACHINE OPERATOR [address] [facility] [place] [address] PCP - General Nurse Practitioner 10/26/16 02/06/17 Clara Cornell MD [address] [facility] [place] [address] PCP - General Internal Medicine 02/07/17 09/20/20 Clara Cornell MD [address] [place] [address] PCP - Assigned PCP 01/17/17 11/18/18 Denise Woodson Ra, APRN SPRAY MACHINE OPERATOR [address] [place] [address] PCP - General Family Practice 09/21/20 Clara Cornell MD [address] [place] [address] Assigned PCP 01/17/17 07/16/20 Denise Woodson Ra, APRN SPRAY MACHINE OPERATOR [address] [place] [address] Assigned PCP 07/17/20 documented as of this encounter
--- OUTSIDE RECORDS SUMMARY | 2024-01-13 14:24 | XMS_ITS | Encounter Summary ---
Author Name Unknown Organization [facility] Address [address] [place] [address] Care Team Providers Care Commercial Fishing Vessel Operator Name Role Phone Timmy Perez MD Unavailable Unavailable Yung Madrigal MD Unavailable Unavailable Winston Villatoro OD Unavailable [phone] Apple Sykes MD Primary Care Provider [phone] Westley Bates MD Unavailable [phone] Alessandra Cabrales APRN SCRAP BUNCH MAKER Primary Car e Provider Serum, Clara Garland MD Primary Care Provider Serum, Clara Garland MD Unavailable [phone] Serum, Clara Garland MD Unavailable [phone] Denise Woodson Ra, APRN SCRAP BUNCH MAKER Unavailable + [phone] Denise Woodson Ra, APRN, CNP Primary Care Provid er Encounter Details Date Type Department Care Team (Late st Contact Info) Description 05/06/2013 MyC Medical Advice [facility] in [facility] [address] [place] [address] Apple Sykes MD [address] [place] [address] Social History Tobacco Use Types Packs/Day Years [...] PM CDT Office Visit [facility] [address] [place] [address] Jacque Alexis APRN SCRAP BUNCH MAKER [address] [place] [address] documented as of this encounter Visit Diagnoses Not on filedocumented in this encounter Care Teams Commercial Fishing Vessel Operator Relationship Specialty Start Date End Date Timmy Perez MD PCP - Obstetrics/Gynecology 03/02/08 08/07/15 Yung Madrigal MD RETIRED PCP - Orthopaedics Orthopedics 08/26/12 Winston Villatoro, OD [facility] [place] [address] [place] [address] PCP - Ophthalmology Ophthalmology 02/11/13 Apple Sykes MD [facility] [place] [address] [place] [address] PCP - General Family Practice 05/04/13 10/25/16 Westley Bates MD XXX RETIRED XXX [address] [facility] [address] [place] [address] PCP - ENT Otolaryngology 05/14/13 07/28/18 Alessandra Cabrales APRN SCRAP BUNCH MAKER [address] [facility] [place] [address] PCP - General Nurse Practitioner 10/26/16 02/06/17 Clara Cornell MD [address] [facility] [place] [address] PCP - General Internal Medicine 02/07/17 09/20/20 Clara Cornell MD [address] [place] [address] PCP - Assigned PCP 01/17/17 11/18/18 Denise Woodson Ra, APRN SCRAP BUNCH MAKER [address] [place] [address] PCP - General Family Practice 09/21/20 Clara Cornell MD [address] [place] [address] Assigned PCP 01/17/17 07/16/20 Denise Woodson Ra, APRN SCRAP BUNCH MAKER [address] [place] [address] Assigned PCP 07/17/20 documented as of this encounter
--- NOTE | 2024-01-13 16:30 | MR_ITS ---
Patient: CHRISTOPHER TY Facility:?[facility] Patient ID:?[id number] Site Patient ID:?[id number] Site :?[id number] Study:?MRI-Head WO-01/13/2024 3:31:17 PM Ordering Physician:VADIM Final Report: Indication: RT ARM WEAKNESS, NUMBNESS OF LEFT SIDE, DIZZINESS Technique: Noncontrast sagittal T1 weighted, axial FLAIR, axial T2 weighted, and axial diffusion weighted sequences are provided. Comparison: CT 01/07/2024 Findings: Numerous scattered foci of diffusion restriction in the left greater than right frontal cortex, bilateral centrum semiovale, left supra marginal gyrus compatible with acute ischemic infarcts. Infarcts involve the left precentral and postcentral gyrus. No pathologic susceptible artifacts. No midline shift. No hydrocephalus. No acute intracranial hemorrhage. The pituitary gland, optic chiasm, pineal gland and cerebellar tonsils are unremarkable. Calvarial bone marrow signal is within normal limits. Mild mucosal thickening in the left posterior ethmoid air cells. The orbits are unremarkable. Impression: 1. 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 2. No mass effect or midline shift. No hydrocephalus. No acute intracranial hemorrhage. Dictated by Dillan Box MD @ 01/13/2024 3:43:53 PM ----- ADDENDUM ----- ADDENDUM: Findings were called to Dr. Gutierrez at 4:14 pm Dictated by Dillan Box MD @ Jan 13 2024 4:18PM Signed by:?Dillan Box MD @01/13/2024 3:43:53 PM (Electronic Signature)
== END 2024-01-13 14:19 | disposition home or self-care (01) ==
PROVIDERS: PCP Family Medicine
DX: R20.0 Anesthesia of skin (principal); I67.82 Cerebral ischemia; I77.0 Arteriovenous fistula, acquired; R53.1 Weakness
CPT/HCPCS: 70551

== ENCOUNTER 2024-01-13 20:40 | Inpatient (IN) | payer OTHER, SELFPAY ==
[2024-01-13] VITALS (17 sets, daily range): BP systolic 134–189; BP diastolic 97–108; PULSE 59–85; RESP 16–20; TEMP 36.9; O2SAT 94–97; BMI 31.9
--- NOTE | 2024-01-13 20:42 | ED.GENADULT ---
HPI - General Adult General Time Seen by Provider: 20:42 Date Seen: 01/13/24 Chief complaint: Weakness Stated complaint: R side/limbs numb, dizzy Time Seen by Provider: 01/13/24 20:41 Source: patient, family and RN notes reviewed Mode of arrival: ambulatory Limitations: no limitations History of Present Illness HPI narrative: This 48-year-old female has a very complex medical history in and is coming in with complaint of her right face leg feeling numb and tingly, her right arm feeling incoordinated and weak. She had an MRI which was ordered by Dr. Gutierrez, in follow-up to a cerebral angiogram at [place] on 01/09/2024 with complications of right arm weakness and incoordination. She had a CT, CTA done postprocedure for her complaints, she came out of the cerebral angiogram with her right arm symptoms. She was to stay and get an MRI of her brain at night but she opted to go home. I did see her yesterday for concerns of possible vascular complications of her right wrist arterial access. She had a normal arterial ultrasound, no complications. I did speak with Dr. Gutierrez. This patient ultimately had the angiogram done for pulsatile tinnitus and concern with asymmetric enlargement of the left occipital artery compared to the right. Patient also has known Lizy Danlos syndrome. The diagnostic cerebral angiogram was done to exclude a dural AVF. 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 She also had an incidental finding of fibromuscular dysplasia in the mid cervical segment of the right internal carotid artery with a mild nonocclusive dissection. She was being treated with 81 mg daily aspirin therapy. She states Dr. Gutierrez called her this afternoon with her results from the MRI. He advised her to go on a full dose aspirin, had her take 3 extra 81 mg aspirins which she did do. She feels like her symptoms are worse, states she is quite upset about everything that is happening. She states she does not want to go home, does not understand why her symptoms keep coming and going. I did review with her that she does have documented strokes on her MRI, it is not uncommon at all for patients to have fluctuating symptoms of there stroke. It can be dependent on positioning of the head/blood flow into the brain, blood pressure issues. She does not want to go home, is afraid to go home. MRI from today is as below: Patient: CHRISTOPHER TY Facility:?[facility] Patient ID:?[id number] Site Patient ID:?[id number] Site :?1975 Study:?MRI-Head WO-01/13/2024 3:31:17 PM Ordering Physician:VADIM Final Report: Indication: RT ARM WEAKNESS, NUMBNESS OF LEFT SIDE, DIZZINESS Technique: Noncontrast sagittal T1 weighted, axial FLAIR, axial T2 weighted, and axial diffusion weighted sequences are provided. Comparison: CT 01/07/2024 Findings: Numerous scattered foci of diffusion restriction in the left greater than right frontal cortex, bilateral centrum semiovale, left supra marginal gyrus compatible with acute ischemic infarcts. Infarcts involve the left precentral and postcentral gyrus. No pathologic susceptible artifacts. No midline shift. No hydrocephalus. No acute intracranial hemorrhage. The pituitary gland, optic chiasm, pineal gland and cerebellar tonsils are unremarkable. Calvarial bone marrow signal is within normal limits. Mild mucosal thickening in the left posterior ethmoid air cells. The orbits are unremarkable. Impression: 1. 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 2. No mass effect or midline shift. No hydrocephalus. No acute intracranial hemorrhage. Dictated by Dillan Box MD @ 01/13/2024 3:43:53 PM ----- ADDENDUM ----- ADDENDUM: Findings were called to Dr. Gutierrez at 4:14 pm Dictated by Dillan Box MD @ Jan 13 2024 4:18PM (Electronic Signature) Related Data Home Medications Medication Instructions Recorded Confirmed fluticasone furoate 200 1 inh inhalation Q24H 07/03/22 01/13/24 mcg-vilanterol 25 mcg/dose inhalation powder (Breo Ellipta) albuterol sulfate 90 mcg/actuation 2 puff inhalation Q6H PRN 08/01/22 01/13/24 aerosol inhaler magnesium 250 mg tablet 250 mg PO QDAY 08/02/22 01/13/24 trazodone 100 mg tablet 100 mg PO QDAY sleep 08/02/22 01/13/24 cetirizine 10 mg tablet (Zyrtec) 10 mg PO QDAY PRN 10/08/23 01/13/24 hydroxyzine HCl 25 mg tablet 25 mg PO BID PRN 12/31/23 01/13/24 Previous Rx's Medication Instructions Recorded ketorolac 10 mg tablet 10 mg PO Q6H PRN pain 5 days #20 07/03/22 tabs albuterol sulfate 2.5 mg/3 mL 2.5 mg (3 mL) inhalation Q4-6H PRN 09/23/22 (0.083 %) solution for nebulization #75 mL ipratropium 0.5 mg-albuterol 3 mg 3 ml inhalation Q6H PRN #90 mL 09/26/22 (2.5 mg base)/3 mL nebulization soln Allergies Allergy/AdvReac Type Severity Reaction Status Date / Time bupropion Allergy Intermediate Diarrhea Verified 01/13/24 22:06 codeine Allergy Intermediate epigastric Verified 01/13/24 22:06 pain erythromycin base Allergy Intermediate stomach Verified 01/13/24 22:06 upset, diarrhea Review of Systems Status of ROS: Reports: 6 or more systems reviewed and unremarkable except as noted in History and below [facility] Medical History Asthma ?J45.909 - Unspecified asthma, uncomplicated (ICD-10) History of blood transfusion (1994) ?Z92.89 - Personal history of other medical treatment (ICD-10) History of vitamin D deficiency ?Z86.39 - Personal history of other endocrine, nutritional and metabolic disease (ICD-10) Anxiety and depression ?F41.9 - Anxiety disorder, unspecified (ICD-10) ?F32.A - Depression, unspecified (ICD-10) Fibromyalgia ?M79.7 - Fibromyalgia (ICD-10) Mild persistent asthma ?J45.30 - Mild persistent asthma, uncomplicated (ICD-10) H/O bronchopulmonary dysplasia ?Z87.09 - Personal history of other diseases of the respiratory system (ICD-10) Stage 1 chronic kidney disease (11/16/20) ?N18.1 - Chronic kidney disease, stage 1 (ICD-10) Simple renal cyst (10/2020) ?N28.1 - Cyst of kidney, acquired (ICD-10) 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, unspecified (ICD-10) Asthma ?J45.909 - Unspecified asthma, uncomplicated (ICD-10) Surgical History History of laparoscopy ?Z98.890 - Other specified postprocedural states (ICD-10) S/P dilation and curettage (1994) ?Z98.890 - Other specified postprocedural states (ICD-10) H/O tubal ligation ?Z98.51 - Tubal ligation status (ICD-10) Status post excision of lipoma (2011) ?Z98.890 - Other specified postprocedural states (ICD-10) ?Z86.018 - Personal history of other benign neoplasm (ICD-10) History of medial meniscus repair of left knee (08/04/13) ?Z98.890 - Other specified postprocedural states (ICD-10) History of laparoscopic cholecystectomy (09/29/20) ?Z90.49 - Acquired absence of other specified parts of digestive tract (ICD-10) History of hysterectomy for benign disease (2005) ?Z90.710 - Acquired absence of both cervix and uterus (ICD-10) History of catheter-based closure of atrial septal defect (06/2006) ?Z87.74 - Personal history of (corrected) congenital malformations of heart and circulatory system (ICD-10) Family History Maternal Grandmother Stroke Paternal Grandfather Diabetes Daughter Depression Social History Narrative: She recently moved to [place]. 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 She has a college education She exercises 5 days a week with walking in treadmill 2M She does not smoke She does not drink alcohol or use recreational drugs Smoking Status: Never smoker Do you use any of these nicotine containing products: None Second hand tobacco smoke exposure: No How often do you have a drink containing alcohol: monthly or less How often do you have six or more drinks on one occasion: Never AUDIT-C Alcohol total score: 1 Non-prescribed substance use: denies use Caffeine: Yes (coffee 1 cup/day) Little interest or pleasure in doing things: not at all Feeling down, depressed, or hopeless: not at all Are you using contraception or practicing any form of control: Yes (hysterectomy) service: No Exam Const: Vital Signs, click to edit/add: Vital Signs - 24 hr 01/13/24 20:51 01/13/24 23:34 Temperature 98.4 F Pulse Rate [Pulse Oximeter] 85 68 Respiratory Rate 20 16 Blood Pressure [Ri ght Upper Arm] 189/108 H 155/101 H Pulse Oximetry 96 96 Oxygen Delivery Me thod Room Air Room Air Patient is very anxious and tearful. She is able to speak, speech seems normal, succinct. Pupils are equal round, conjugate gaze, symmetrical facial function. Neck supple, no masses. CV regular rate and rhythm, no murmur. Cardiac monitoring shows sinus rhythm. Lungs are clear, good air entry, no wheezing or crackles. Hand wheel of fortune dealer strength are 5/5 and symmetric, she has 5/5 and symmetric biceps strength. She can do normal finger to thumb maneuvers but does so slow on both sides, no dysmetria noted on either side. Initially states it is difficult to lift her right leg but when prompted to do so she can lift it and hold it. Easily lifts her left leg and holds it up. Her right wrist has the pinpoint scab over the puncture site, some yellowing of the bruising just right around the area. No pallor or cyanosis noted in this extremity, seems to have decreased swelling from yesterday when she was noted to have some mild swelling in the wrist and forearm. Documenting provider has reviewed patient's vital signs: yes Course Course ED Course: This patient has very understandable anxiety, has had significant complex medical issues recently including multiple areas of stroke likely stemming from her procedure. I have reviewed with them that I will be talking to Stroke Neurology, will have them help me sort through this and come up with a plan for her. Reevaluation(s) Time of Reevaluation #1: 23:43 Reevaluation #1: Patient reported that she had some left chest pain to nursing staff. They did get an EKG, will do a point of care troponin. Her troponin from her initial lab work was normal. Consultations Consultation #1: Patient history is given to Dr. Molina stroke neurologist. She would like me to have CT of head neck done, ask them to make sure they go through the full arch. She wants to make sure that there is no further dissection, look at the vessels. She did review the MRI from earlier. Once she has the CTA imaging, she will talk to the interventional service. She does think the patient should be hospitalized, will decide if that will be here or up there. She does state that they will follow the patient and patient will be able to talk to Neurology if she stays here. Did go back and review this with the patient. She is a little calmer, systolic blood pressure is now in the 130s. We have spent some time discussing her symptoms, I do agree with her that she has questions that ultimately need answering by Neurology. Whether she states here in does them via tele neurology or if she does transfer back to [place], she is comfortable with either. 10:35 p.m.: Did speak with Dr. Molina. She is not seen any acute changes on the CTA images upon review herself. I am to let her know if the radiologist has different opinion. She believes this to be a complication of the procedure very likely but does think the patient should be on telemetry and get an echo just to ensure no embolic phenomenon. She still would recommend maximizing lipids. They will consult on this patient formally tomorrow. Did go over this with the patient. She is comfortable staying here, happy that she will get a neurology consult via tele neurology tomorrow. She did then bring up that earlier this morning she had an episode where she had some left chest pain and pain into her left arm. We will add on a troponin. Time: 21:05 Consultation #2: Did speak with hospitalist Dr. Villarreal. She is busy with other admissions, cannot take this patient. She asks us to wait to talk to the overnight on-call service. Time: 22:40 Consultation #3: Spoke with Dr. Yost the overnight hospitalist, he will accept care. Time: 00:06 Vital Signs Vital signs: Initial Vital Signs Temperature 98.4 F 01/13/24 20:51 Temperature Source Temporal Artery Scan 01/13/24 20:51 Pulse Rate 85 01/13/24 20:51 Pulse Rhythm Regular 01/13/24 20:51 Pulse Strength 3+ Normal 01/13/24 20:51 Respiratory Rate 20 01/13/24 20:51 Blood Pressure 189/108 H 01/13/24 20:51 Blood Pressure Mean 135 H 01/13/24 20:51 Pulse Oximetry 96 01/13/24 20:51 Oxygen Delivery Method Room Air 01/13/24 20:51 Vital Signs Temperature 98.4 F 01/13/24 20:51 Pulse Rate 85 01/13/24 20:51 Respiratory Rate 20 01/13/24 20:51 Blood Pressure 189/108 H 01/13/24 20:51 Pulse Oximetry 96 01/13/24 20:51 Oxygen Delivery Method Room Air 01/13/24 20:51 Temperature 98.4 F 01/13/24 20:51 Pulse Rate 68 01/13/24 23:34 Respiratory Rate 16 01/13/24 23:34 Blood Pressure 155/101 H 01/13/24 23:34 Pulse Oximetry 96 01/13/24 23:34 Oxygen Delivery Method Room Air 01/13/24 23:34 Medical Decision Making Lab Data Lab results reviewed: Yes I reviewed the patient's lab results Labs: Lab Results 01/13/24 01/13/24 01/13/24 Range/Units 21:28 23:10 23:44 WBC 13.56 H (4.50-11.00) K/uL RBC 5.21 H (4.00-5.20) m/uL Hgb 15.7 (12.0-16.0) gm/dL Hct 47.0 (33.0-51.0) % MCV 90 (80-100) fL MCH 30 (26-34) pg MCHC 33 (32-36) gm/dL RDW Coeff of Bárbara 12.1 (11.5-15.5) % Plt Count 269 (140-440) K/uL Neut % (Auto) 61.9 (42.0-72.0) % Lymph % (Auto) 29.4 (20-44) % Summers % (Auto) 7.0 (0.0-11.0) % Eos % (Auto) 1.2 (0.0-7.0) % Baso % (Auto) 0.2 (0.0-3.0) % Neut # (Auto) 8.40 H (1.7-7.0) K/uL Lymph # (Auto) 4.00 H (0.90-2.90) K/uL Summers # (Auto) 0.90 (0.00-0.90) K/UL Eos # (Auto) 0.20 (0.00-0.50) K/uL Baso # (Auto) 0.00 (0.00-0.30) K/uL Abs Immat Gran (auto) 0.00 (0.00-0.30) K/uL Imm/Tot Granulo (auto) 0.3 % Sodium 137 (135-149) mmol/L Potassium 3.8 (3.6-5.1) mmol/L Chloride 104 (96-114) mmol/L Carbon Dioxide 27 (20-32) mmol/L Anion Gap 6 L (7-15) mEq/L BUN 21 (5-24) mg/dL Creatinine 0.7 (0.5-1.5) mg/dL Estimated Creat Clear 100.22 Estimated GFR 107 ml/min Glucose 101 (60-115) mg/dL Calcium 9.7 (8.4-10.6) mg/dL Troponin I < 0.01 L (0.01-0.04) ng/mL Lab Acknowledgement Test Added POC Troponin I 0.00 L (0.01-0.04) ng/ml Imaging Data CT- Other: Attestation: I have reviewed the pertinent imaging results. Radiologist's impression: Patient: CHRISTOPHER TY Facility:?[facility] Patient ID:?[id number] Site Patient ID:?[id number] Site :?1975 Study:?CT-Head Angio W/ 95CC ISOVUE 370-01/13/2024 10:11:45 PM Ordering Physician:CRUZ Preliminary Report: COMPARISON: 01/04/2024. IMPRESSION: CTA head: No sign of large vessel occlusion or significant aneurysm. Asymmetric enlargement of left occipital artery related to known left sigmoid dural AV fistula, unchanged. CTA neck: Patent cervical arteries without evidence of significant stenosis. Mild corrugated morphology of the cervical ICAs, likely reflecting fibromuscular dysplasia. Dictated by Jose Anders MD @ 01/13/2024 10:43:55 PM Read by:?Jose Anders MD @01/13/2024 10:43:58 PM ECG Data Attestation: I personally reviewed and interpreted this ECG as follows: (Sinus rhythm, 69 beats per minute. PVC seen. Some artifact but overall no ischemic change, no infarct noted. QT corrected 398 milliseconds.) Prior ECG tracings: available for review (Compared to 09/29/2022, no significant change, PVCs present then as well.) Critical Care Time Critical Care Time Critical Care Time: No Discharge Plan Discharge Clinical Impression: Ischemic cerebrovascular accident (CVA) Patient Disposition: Admitted As Observation
--- NOTE | 2024-01-13 21:15 | CT_ITS ---
Patient: CHRISTOPHER TY Facility:?[facility] Patient ID:?[id number] Site Patient ID:?[id number]. Site :?1975 Study:?CT-Neck Angio W/ 95CC ISOVUE 370-01/13/2024 10:12:15 PM Ordering Physician:CRUZ Final Report: DATE: 01/13/2024 CLINICAL HISTORY: Patient with focal neurological deficits, recent strokes, right ICA dissection. TECHNIQUE: Standard helical CT image acquisition of the neck up to the skull base after bolus intravenous contrast enhancement. 2D and 3D MIP images for post-processing were performed and interpreted on an independent workstation and 3D images were permanently archived. COMPARISON: MRI same day, angiogram 01/09/2024 FINDINGS: There is mild luminal irregularities in the cervical segments of the internal carotid arteries bilaterally, consistent with the known diagnosis of Lizy- Danlos syndrome. The mild right cervical internal carotid artery dissection is not appreciated by CT angiography. There is asymmetric enlargement of the left occipital artery with early opacification of the left sigmoid sinus, consistent with the known dural arteriovenous fistula. The origins of the great vessels from the aortic arch are patent. The origin of the right vertebral artery is patent. The origin of the left vertebral artery is patent. The common carotid arteries are patent. There is no stenosis at the origin of the right internal carotid artery. There is no stenosis at the origin of the left internal carotid artery. The rest of the cervical segments of the internal carotid arteries are patent up to the skull base. The vertebral arteries are codominant. The cervical segments of the vertebral arteries are patent up to the skull base. The visualized lung apices are unremarkable. The thyroid gland is unremarkable. The soft tissues of the neck are unremarkable. There are degenerative changes in the cervical spine. IMPRESSION: 1. Patent cervical vasculature. 2. Mild luminal irregularities in the cervical segments of the internal carotid arteries bilaterally are consistent with the known diagnosis of Lizy-Danlos syndrome. The mild right cervical internal carotid artery dissection is not appreciated by CT angiography. 3. Asymmetric enlargement of the left occipital artery with early opacification of the left sigmoid sinus is consistent with the known dural arteriovenous fistula. Please note that all CT scans at this facility use dose modulation, iterative reconstruction, and/or weight-based dosing when appropriate to reduce radiation dose to as low as reasonably achievable. Dictated by Timoteo Gutierrez MD @ 01/14/2024 10:07:17 AM Signed by:?Timoteo Gutierrez MD @01/14/2024 10:07:17 AM (Electronic Signature)
--- NOTE | 2024-01-13 21:15 | CT_ITS ---
Patient: CHRISTOPHER TY Facility:?[facility] Patient ID:?[id number] Site Patient ID:?[id number]. Site :?1975 Study:?CT-Head Angio W/ 95CC JOSE ROBERTOVUE 370-01/13/2024 10:11:45 PM Ordering Physician:CRUZ Final Report: DATE: 01/13/2024 CLINICAL HISTORY: Patient with focal neurological deficits. TECHNIQUE: Standard helical CT image acquisition through the intracranial circulation following intravenous administration of contrast material with bolus tracking. 2D and 3D MIP images for post-processing were performed and interpreted on an independent workstation and 3D images were permanently archived. COMPARISON: MRI same day. FINDINGS: There is no cerebral aneurysm or large vessel occlusion. The right internal carotid artery is normal. The right middle cerebral artery and its branches are normal. The right anterior cerebral artery and its branches are normal. The left internal carotid artery is normal. The left middle cerebral artery and its branches are normal. The left anterior cerebral artery and its branches are normal. The anterior communicating artery is well visualized and appears normal. The right vertebral artery and PICA are normal. The left vertebral artery and PICA are normal. The vertebral arteries are codominant. The basilar artery is patent and appears normal. The right posterior cerebral artery is normal. The left posterior cerebral artery is normal. The visualized venous structures are patent, with early opacification of the left sigmoid sinus. IMPRESSION: 1. Patent proximal intracranial vasculature without intracranial aneurysms. 2. Asymmetric enlargement of the left occipital artery with early opacification of the left sigmoid sinus is consistent with the known dural arteriovenous fistula. Please note that all CT scans at this facility use dose modulation, iterative reconstruction, and/or weight-based dosing when appropriate to reduce radiation dose to as low as reasonably achievable. Dictated by Timoteo Gutierrez MD @ 01/14/2024 10:10:06 AM Signed by:?Timoteo Gutierrez MD @01/14/2024 10:10:06 AM (Electronic Signature)
[2024-01-13 21:36] LABS: Basophils Percent Auto 0.2 % (0.0-3.0); Eosinophils Percent Auto 1.2 % (0.0-7.0); Hemoglobin* 15.7 gm/dL (12.0-16.0); Immature Granulocytes Pct Auto 0.3 %; Lymphocytes Percent Auto 29.4 % (20-44); Mean Corpuscular HGB Conc 33 gm/dL (32-36); Mean Corpuscular Hemoglobin 30 pg (26-34); Mean Corpuscular Volume 90 fL (80-100); Neutrophils Percent Auto 61.9 % (42.0-72.0); Platelet Count* 269 K/uL (140-440); RDW Coefficient of Variation % 12.1 % (11.5-15.5); Red Blood Count 5.21 m/uL (4.00-5.20); White Blood Count* 13.56 K/uL (4.50-11.00)
--- OUTSIDE RECORDS SUMMARY | 2024-01-13 21:36 | XMS_ITS | Encounter Summary ---
Author Name Unknown Organization [facility] Address [address] [place] [address]. [place] [address] Care Team Providers Care Geoscientist Name Role Phone Yung Madrigal MD Unavailable Unavailable Winston Villatoro OD Unavailable [phone] Denise Woodson Ra, APRN [employer] Unavailable Denise Woodson Ra, APRN [employer] Primary Care Provid er Reason for Visit * Reason Comments Medication Refill Encounter Details Date Type Department Care Team (Late st Contact Info) Description [facility] [address] [place] [address] Denise Woodson Ra, APRN [employer] [address] [place] [address] Medication Refill Social History Tobacco [...] as final attempt to schedule. Karla Velasquez Mri Technician * Telephone Encounter - Karla Morales - 01/17/2023 8:59 AM CDT LVM requesting a call back for an appt (physical). One more attempt will be made. Karla Morales [place]ton Mri Technician * Telephone Encounter - Arianna Lo - 01/10/2023 3:33 PM CDT Sent Tendr message requesting a call back for an appt. Two more attempts will be made. Arianna Lo [place] Mri Technician * Telephone Encounter - Leslie Mcclellan [...] 0 0 0 Leslie Mcclellan RN, BSN [facility] documented in this encounter Plan of Treatment Upcoming Encounters Date Type Department Care Team (Late st Contact Info) Description 01/15/2024 3:30 PM CDT Office Visit [facility] [address] [place] [address] Jacque Alexis APRN [employer] [address] [place] [address] documented as of this encounter Visit Diagnoses Diagnosis Moderate persistent asthma without complication Unspecified asthma documented in this encounter Additional Health Concerns Assessment Noted Time PHQ-9 Depression Total Score: 0 06/23/20 21 4:11 PM CDT documented as of this encounter Care Teams Geoscientist Relationship Specialty Start Date End Date Yung Madrigal MD RETIRED PCP - Orthopaedics Orthopedics 08/26/12 Winston Villatoro OD [facility] [place] [address] [place] [address] PCP - Ophthalmology Ophthalmology 02/11/13 Denise Woodson Ra, APRN [employer] [address] [place] [address] PCP - General Family Practice 09/21/20 Denise Woodson Ra, APRN [employer] [address] [place] [address] Assigned PCP 07/17/20 documented as of this encounter
--- OUTSIDE RECORDS SUMMARY | 2024-01-13 21:36 | XMS_ITS | Clinical Summary ---
Author Name Unknown Organization [facility] Address [place], [place] [address] Care Team Providers Care Supercharger Mechanic Name Role Phone Keira Irvin MD Primary [...] at bedtime. 90 Tablet 3 03/07/2022 Active methylPREDNISolon e (MEDROL DOSEPAK) 4 mg tabletIndications :AVF (arteriovenous fistula) (HC) Take by mouth as instructed per packaging. 21 Tablet 01/09/2024 Active acetaminophen (TYLENOL EXTRA STRGTH) 500 mg tabletIndications :AVF (arteriovenous fistula) (HC) Take 1-2 Tablets (500-1,000 mg) by mouth every 6 hours if needed for Headache or Pain. Max acetaminophen dose: 4000mg in 24 hrs. 01/09/2024 Active aspirin 325 mg tabletIndications :Cerebrovascular accident (CVA), unspecified mechanism (HC) Take 1 Tablet (325 mg) by mouth once daily. 01/13/2024 Active durable medical equipment (DME)Indications: Plantar fasciitis, bilateral [id number] Plantar Fasciitis, night splint, Large 1 Each 04/12/2021 4 Discontinue d(*Patient states no longer taking) buPROPion (WELLBUTRIN SR) 100 mg Sustained-Release tabletIndications :Anxiety and depression Take 1 Tablet (100 mg) by mouth two times daily. Start with once daily for 1 week. 60 Tablet 11 01/09/2023 4 Discontinue d(*Patient states no longer taking) aspirin (ECOTRIN) 81 mg enteric coated tabletIndications :AVF (arteriovenous fistula) (HC) Take 1 Tablet (81 mg) by mouth once daily. 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 Cervical disc syndrome Fibromyalgia Encounters Date Type Department Care Team Description 01/13/2024 Telephone [facility] [address] [place] [address]698 Anastasia Walden NP Error-please disregard 01/13/2024 Telephone [facility] [address] [place] [address] Anastasia Walden NP Questions 01/10/2024 Orders Only [facility] [address] [place] [address] Timoteo Gutierrez MD <No scans attached> 01/10/2024 Telephone [facility] [address] [place] [address]168 Aby Saxena NP Follow Up 01/09/2024 1:20 PM CDT - 01/09/2024 3:30 PM CDT Hospital Encounter [facility] [address] [place] [address] Timoteo Gutierrez MD AVF (arteriovenous fistula) (HC) (Primary Dx); Tinnitus, left ear; Headache Discharge Disposition: Home Self Care 01/09/2024 Travel from Last 3 Months Immunizations Name Administration Dates Next Due COVID-19 vaccine (Seed[employer]Spark NTP[employer]cribe Wellness 30mcg/0.3mL) CORKY ROSARIO 07/07/2021 Hepatitis B, Unspecified [...] Father he was adopted, and young in [facility] Good Health Mother Relation Name [...] Info) Description 02/03/2024 7:30 AM CDT Appointment [facility] [address] [place] [address] Health Maintenance Due Date Last Done Comments [...] MEASURED LDL Routine 08/03/2011 10:31 AM MANAGER ACUTE Screening for other and unspecified cardiovascular conditions [...] 01/09/2024 1:12:05 PM (Electronically Signed) Anastasia Walden SENIOR RESEARCH ENGINEER CT * IR ANGIO CAROTID CEREBRAL BILATERAL [...] of the examination. Timoteo Gutierrez M.D. Neurointerventionalist [facility] [employer] [facility] Pager: Office/Appointments: Answering Service: [facility] Transfer Center: [email or web address] Narrative 01/09/2024 9:57 AM CDT PHYSICIAN: Timoteo Gutierrez DATE: 01/09/2024. PROCEDURE: CEREBRAL ANGIOGRAM Selective catheter placement, right internal carotid artery, with angiography of the intracranial carotid circulation (CPT 92125) Selective catheter placement, right external carotid artery, with angiography of the external carotid circulation (CPT +11158) Selective catheter placement, left internal carotid artery, with angiography of the intracranial carotid circulation (CPT 08153) Selective catheter placement, left external carotid artery, with angiography of the external carotid circulation (CPT +87712) Selective catheter placement, right vertebral artery, with angiography of the vertebral circulation (CPT 34268) Selective catheter placement, left vertebral artery, with angiography of the vertebral circulation (CPT 78804) Ultrasound guidance for vascular access: right radial artery access (CPT +55056) Monitored conscious sedation: 50min (CPT 19654, CPT +45391 x2) CLINICAL HISTORY: 48 year-old female with [...] right radial percutaneous arterial puncture and a 5-Faroese sheath was placed. After infusion of a heparin, verapamil and nitroglycerin cocktail via the sheath, contrast was then injected via the sheath to assess the arterial anatomy in the right forearm. Subsequently using a 5-Faroese angled tip catheter and glidewire combination, selective [...] The anterior communicating artery is ??opacified from [id number]. The capillary, venous, and venous sinus phases [...] ??The anterior communicating artery is opacified from [id number]. Right vertebral artery injection: There is normal [...] REFLEX MEASURED LDL (08/03/2011 10:31 AM MANAGER ACUTE) [facility] CHOLESTEROL,TOTAL 171 110 - 199 mg/dL [facility] TRIGLYCERIDES 67 <150 mg/dL [facility] HDL CHOLESTEROL 43 >40 mg/dL [facility] CHOL/HDL RATIO 3.98 <4.51 [facility] LDL CHOLESTEROL 115 <131 mg/dL [facility] PATIENT STATUS Fasting [facility] Blood specimen (specimen) BLOOD SPECIMEN / Unknown 08/03/2011 10:31 AM MANAGER ACUTE 08/03/2011 10:23 AM MANAGER ACUTE Jasvir Pickens MD CHEMISTRY [facility] [address] [place] [address] from Last 3 Months or Most Recently Relevant to Health Maintenance Advance Directives * Full Code (Latest Code Status on File) Date Activated Date Inactivated Comments 01/09/2024 7:44 AM 01/09/2024 6:26 PM Question Answer Comments Code Status Discussion: Reviewed Preferences Care Teams Supercharger Mechanic Relationship Specialty Start Date End Date Keira Irvin MD [address] [place] [address] PCP - General Family Practice 01/08/24
--- OUTSIDE RECORDS SUMMARY | 2024-01-13 21:36 | XMS_ITS | Encounter Summary ---
Author Name Unknown Organization [facility] Address [address] [place] [address] Care Team Providers Care Animal Therapist Name Role Phone Yung Madrigal MD Unavailable Unavailable Winston Villatoro OD Unavailable [phone] Denise Woodson Ra, APRN TELEVISION DIRECTOR Unavailable + [phone] Denise Woodson Ra, APRN TELEVISION DIRECTOR Primary Care Provid er Encounter Details Date Type Department Care Team (Late Contact Info) Description 01/22/2022 [facility] [address] [place] [address] Angelo Escobar Social History Tobacco [...] PM CDT [facility] [address] [place] [address] Jacque Alexis APRN TELEVISION DIRECTOR [address] [place] [address] documented as of this encounter Visit Diagnoses Not on filedocumented in this encounter Additional Health Concerns Assessment Noted Time PHQ-9 Depression Total Score: 0 06/23/20 21 4:11 PM CDT documented as of this encounter Care Teams Animal Therapist Relationship Specialty Start Date End Date Yung Madrigal MD RETIRED PCP - Orthopaedics Orthopedics 08/26/12 Winston Villatoro OD [facility] [place] [address] [facility] [address] [place] [address] PCP - Ophthalmology Ophthalmology 02/11/13 Denise Woodson Ra, APRN TELEVISION DIRECTOR [address] [facility] [place] [address] PCP - General Family Practice 09/21/20 Denise Woodson Ra, APRN TELEVISION DIRECTOR [address] [facility] [place] [address] Assigned PCP 07/17/20 documented as of this encounter
--- OUTSIDE RECORDS SUMMARY | 2024-01-13 21:36 | XMS_ITS | Clinical Summary ---
Author Name Unknown Organization [facility] Address [address] [place] [address] Care Team Providers Care Bucket Pusher Name Role Phone Yung Madrigal MD Unavailable Unavailable Winston Villatoro OD Unavailable [phone] Denise Woodson Ra, APRN FOOT ROENTGENOLOGIST Unavailable [phone] Denise Woodson Ra, APRN FOOT ROENTGENOLOGIST Primary Care Provid er Allergies Active Allergy [...] (FLONASE) 50 MCG/ACT nasal sprayIndications:Chr onic rhinitis Paxinos 2 sprays into both nostrils daily 16 [...] Comments Blood Pressure 108/68 07/27/2021 8:28 AM WEIGHT GUESSER Pulse 68 07/27/2021 8:28 AM WEIGHT GUESSER Temperature 36.9 ??C (98.4 ??F) 07/27/2021 8:28 AM CS T Respiratory Rate 12 07/27/2021 8:28 AM WEIGHT GUESSER Oxygen Saturation 97% 07/27/2021 8:28 AM WEIGHT GUESSER Inhaled Oxygen Concentration - - Weight 99.3 kg (219 lb) 07/27/2021 8:28 AM WEIGHT GUESSER Height 174.6 cm (5' 8.75) 02/08/2021 10:22 AM C DT Body Mass Index 32.58 02/08/2021 10:22 AM CDT Plan of Treatment Upcoming Encounters Date Type Department Care Team (Late st Contact Info) Description 01/15/2024 3:30 PM CDT Office Visit [facility] [address] [place] [phone] Jacque Alexis APRN FOOT ROENTGENOLOGIST [address] [place] [address] Health Maintenance Due Date Last Done Comments [...] COMPREHENSIVE METABOLIC PANEL Routine 07/27/2021 8:57 AM WEIGHT GUESSER Routine general medical examination at a health care facility CARDIOVASCULAR SCREENING; LDL GOAL LESS THAN 160 LIPID REFLEX TO DIRECT LDL PANEL Routine 07/27/2021 8:57 AM WEIGHT GUESSER CARDIOVASCULAR SCREENING; LDL GOAL LESS THAN 160 [...] patient. IRMA HOWELL MD Denise Woodson APRN FOOT ROENTGENOLOGIST IMG MAMMOGRA PHY ORDERABLES * (ABNORMAL) Lipid panel reflex to direct LDL Fasting (07/27/2021 8:57 AM WEIGHT GUESSER) Cholesterol 202(H) <200 mg/dL 07/28/2021 10:12 AM WEIGHT GUESSER [facility] Triglycerides 91 <150 mg/dL 07/28/2021 10:12 AM WEIGHT GUESSER [facility] Direct Measure HDL 56 >=50 mg/dL 07/28/2021 10:12 AM WEIGHT GUESSER [facility] LDL Cholesterol Calculated 128(H) <=100 mg/dL 07/28/2021 10:12 AM WEIGHT GUESSER [facility] Non HDL Cholesterol 146(H) <130 mg/dL 07/28/2021 10:12 AM WEIGHT GUESSER [facility] Patient Fasting > 8hrs? Yes 07/28/2021 10:12 AM WEIGHT GUESSER [facility] Blood STRUCTURE OF RIGHT UPPER LIMB / Unknown Venipuncture / Unknown 07/27/2021 8:57 AM WEIGHT GUESSER 07/27/2021 8:57 AM WEIGHT GUESSER Narrative [facility] - 07/28/2021 10:12 AM WEIGHT GUESSER Cholesterol Desirable: ??<200 mg/dL Triglycerides Normal: ??Less [...] equal to 220 mg/dL Denise Woodson APRN FOOT ROENTGENOLOGIST LAB - BLOOD ORDERABLES [facility] [address] Lab (no room number, 1st floor of clinic) [place] [address], [facility] [phone] * Comprehensive metabolic panel (BMP + Alb, Alk Phos, ALT, AST, Total. Bili, TP) (07/27/2021 8:57 AM WEIGHT GUESSER) Sodium 139 133 - 144 mmol/L 07/28/2021 10:12 AM WEIGHT GUESSER [facility] Potassium 4.0 3.4 - 5.3 mmol/L 07/28/2021 10:12 AM WEIGHT GUESSER [facility] Chloride 105 94 - 109 mmol/L 07/28/2021 10:12 AM WEIGHT GUESSER [facility] Carbon Dioxide (CO2) 26 20 - 32 mmol/L 07/28/2021 10:12 AM WEIGHT GUESSER [facility] Anion Gap 8 3 - 14 mmol/L 07/28/2021 10:12 AM WEIGHT GUESSER [facility] Urea Nitrogen 20 7 - 30 mg/dL 07/28/2021 10:12 AM WEIGHT GUESSER [facility] Creatinine 0.74 0.52 - 1.04 mg/dL 07/28/2021 10:12 AM WEIGHT GUESSER [facility] Calcium 8.8 8.5 - 10.1 mg/dL 07/28/2021 10:12 AM WEIGHT GUESSER [facility] Glucose 95 70 - 99 mg/dL 07/28/2021 10:12 AM WEIGHT GUESSER [facility] Alkaline Phosphatase 67 40 - 150 U/L 07/28/2021 10:12 AM WEIGHT GUESSER [facility] AST 8 0 - 45 U/L 07/28/2021 10:12 AM WEIGHT GUESSER [facility] ALT 18 0 - 50 U/L 07/28/2021 10:12 AM WEIGHT GUESSER [facility] Protein Total 7.6 6.8 - 8.8 g/dL 07/28/2021 10:12 AM WEIGHT GUESSER [facility] Albumin 3.4 3.4 - 5.0 g/dL 07/28/2021 10:12 AM WEIGHT GUESSER [facility] Bilirubin Total 0.5 0.2 - 1.3 mg/dL 07/28/2021 10:12 AM WEIGHT GUESSER [facility] GFR Estimate >90 >60 mL/min/1.7 3m2 07/28/2021 10:12 AM WEIGHT GUESSER [facility] Comment:As of March 26, 2021, eGFR is calculated by the CKD-EPI creatinine equation, without race adjustment. eGFR can be influenced by muscle mass, exercise, and diet. The reported eGFR is an estimation only and is only applicable if the renal function is stable. Blood STRUCTURE OF RIGHT UPPER LIMB / Unknown Venipuncture / Unknown 07/27/2021 8:57 AM WEIGHT GUESSER 07/27/2021 8:57 AM WEIGHT GUESSER Denise Woodson APRN FOOT ROENTGENOLOGIST LAB - BLOOD ORDERABLES [facility] [address] Lab (no room number, 1st floor of clinic) [place] [address], [facility] [phone] from Last 3 Months or Most Recently Relevant to Health Maintenance Care Teams Bucket Pusher Relationship Specialty Start Date End Date Yung Madrigal MD RETIRED PCP - Orthopaedics Orthopedics 08/26/12 Winston Villatoro OD [facility] [place] [address] [facility] [address] [place] [address] PCP - Ophthalmology Ophthalmology 02/11/13 Denise Woodson Ra, APRN FOOT ROENTGENOLOGIST [address] [place] [address] PCP - General Family Practice 09/21/20 Denise Woodson Ra, APRN FOOT ROENTGENOLOGIST [address] [place] [address] Assigned PCP 07/17/20
--- OUTSIDE RECORDS SUMMARY | 2024-01-13 21:36 | XMS_ITS | Referral Summary ---
Author Name Unknown Organization [facility] Address [address] [place] [address] Care Team Providers Care Item Processing Clerk Name Role Phone Darius Shaw M.D. Primary Care Provider [phone] Source Comments Patient records contain information from all sites at [facility]. For routine questions regarding patient records, call [phone] during business hours, M-F 8:00 AM - 5:00 PM Central Time. Record requests for emergency care only can be directed to [phone] at any time.[facility] Allergies Active Allergy Reactions Criticality [...] How often do you attend worship or presybeterian serv ices? Never 01/10/2023 Do you belong [...] Answer Date Recorded PHQ-2 Score 3 01/10/2023 [facility] of Occupat ional Health - Occupational Stress [...] on file Medical Devices Implanted Type Area Distribution Transformer Assembler Device Identifier Shelf Expiration Date Model / Serial / Lot Mesh Or Patch Mesh or Patch Heart Description:Amplatzer Septal Occluder Asd Closure Device 34mm - [place] [id number] Implanted:Qty: 1 on 06/20/2006 Septal Defect Occluder Device Other/Legacy - See Implant Description Description:Device Manufactu [facility]. Device Status Text - [id number]. Procedures Procedure Name Priority Date/Time Associated Diagnosis Comments BI BREAST SCREENING BILATERAL WITH TOMOSYNTHESIS RAD - Routine (most inpatients and all outpatients) 07/30/2023 2:38 PM PYROTECHNICS PRESS TENDER Screening Mammogram Breast Cancer COLOGUARD Routine 10/28/2022 5:54 PM PYROTECHNICS PRESS TENDER Screening Cancer Colon VBG & LYTES CG8+, POCT, B Routine 09/30/2022 10:38 AM PYROTECHNICS PRESS TENDER EXTI LIPID PANEL REFLEX TO DIRECT LDL Routine 07/27/2021 8:57 AM PYROTECHNICS PRESS TENDER from Last 3 Months or Most Recently Relevant to Health Maintenance Results * BI Breast Screening Bilateral with Tomosynthesis (07/30/2023 2:38 PM PYROTECHNICS PRESS TENDER) Anatomical Region Laterality Modality Breast, Breast Imaging RST L OS, Breast Imaging ARZ LOS, Breast Imaging FLA LOS Bilateral Mammography 08/01/2023 12:2 8 PM PYROTECHNICS PRESS TENDER Impressions 08/01/2023 12:33 PM PYROTECHNICS PRESS TENDER Negative. RECOMMENDATION: ??Annual Screening Mammogram ASSESSMENT: ??BI-RADS: 1: Negative. Narrative 08/01/2023 12:33 PM PYROTECHNICS PRESS TENDER EXAM: ??BI BREAST SCREENING BILATERAL WITH TOMOSYNTHESIS [...] ASSESSMENT: BI-RADS: 1: Negative. Darius Shaw M.D. [facility] BI PROCEDURES * Cologuard-Sent Out Lab (10/28/2022 5:54 PM PYROTECHNICS PRESS TENDER) Result Negative Negative 11/03/2022 2:48 AM PYROTECHNICS PRESS TENDER EXLI Comment: NEGATIVE TEST RESULT. A negative [...] (Yenny Adkins al, N Engl J Med 2014;370(14):6852-9594) The normal value (reference range) for this assay is negative. COLOGUARD RE-SCREENING RECOMMENDATION: Periodic colorectal cancer screening is an important part of preventive healthcare for asymptomatic individuals at average risk for colorectal cancer. ??Following a negative Cologuard result, the [place] [employer] Society and U.S. Multi-Society Task Force screening guidelines recommend a Cologuard re-screening interval of 3 years. References: [place] [employer] Guideline for Colorectal Cancer Screening: https://www.cancer.org/cancer/gbisn-ljwiwg-ldpxpz/detection- diagnosis-staging/acs-recommendations.html.; Ming MARTINEZ, Barbra CR, Erna SimsK, Colorectal Cancer Screening: Recommendations for Physicians and Patients from the U.S. Multi-Society Task Force on Colorectal Cancer Screening , Am J Gastroenterology 2017; 112:1714-1159. TEST DESCRIPTION: Composite algorithmic analysis of stool [...] (Yenny Adkins al, N Engl J Med 2014;370(14):0041-9376.) Cologuard may produce a false negative or false positive result (no colorectal cancer or precancerous polyp present at colonoscopy follow up). A negative Cologuard test result does not guarantee the absence of CRC or advanced adenoma (pre-cancer). The current Cologuard screening interval is every 3 years. ([place] [employer] and U.S. Multi-Society Task Force). Cologuard performance data in a 10,000 patient pivotal study using colonoscopy as the reference method can be accessed at the following location: www.[employer]/results. Additional description of the Cologuard test process, warnings and precautions can be found at www.cologuard.com. Stool (Stool) 10/28/2022 5:5 4 PM PYROTECHNICS PRESS TENDER 10/30/2022 1:57 PM PYROTECHNICS PRESS TENDER Darius Shaw M.D. LAB BODY FLUIDS AND STOOLS ORDERABLES [facility] [address] [place] [address] [facility] [address] [facility], [address] [place] [address] * Venous Blood Gas and Electrolytes CG8+, POCT (09/30/2022 10:38 AM PYROTECHNICS PRESS TENDER) Sample Site, POCT Venstick 09/30/2022 10:54 AM PYROTECHNICS PRESS TENDER PCSM Comment: ----ADDITIONAL INFORMATION---- Performed at the Point of Care pH, Venous, POCT, B 7.43 7.32 - 7.43 09/30/2022 10:54 AM PYROTECHNICS PRESS TENDER PCSM Comment: ----ADDITIONAL INFORMATION---- Performed at the Point of Care pCO2, Venous, POCT, B 46 41 - 51 mm Hg 09/30/2022 10:54 AM PYROTECHNICS PRESS TENDER PCSM Comment: ----ADDITIONAL INFORMATION---- Performed at the Point of Care pO2, Venous, POCT, B 25 Not Applicable mm Hg 09/30/2022 10:54 AM PYROTECHNICS PRESS TENDER PCSM Comment: ----ADDITIONAL INFORMATION---- Performed at the Point of Care Base Excess, Venous, POCT, B 6 Not Applicable mmol/L 09/30/2022 10:54 AM PYROTECHNICS PRESS TENDER PCSM Comment: ----ADDITIONAL INFORMATION---- Performed at the Point of Care HCO3, Venous, POCT, B 31 Not Applicable mmol/L 09/30/2022 10:54 AM PYROTECHNICS PRESS TENDER PCSM Comment: ----ADDITIONAL INFORMATION---- Performed at the Point of Care Sodium, POCT, B 140 135 - 145 mmol/L 09/30/2022 10:54 AM PYROTECHNICS PRESS TENDER PCSM Comment: ----ADDITIONAL INFORMATION---- Performed at the Point of Care Potassium, POCT, B 4.3 3.6 - 5.2 mmol/L 09/30/2022 10:54 AM PYROTECHNICS PRESS TENDER PCSM Comment: ----ADDITIONAL INFORMATION---- Performed at the Point of Care Calcium, Ionized, POCT, B 5.20 4.65 - 5.30 mg/dL 09/30/2022 10:54 AM PYROTECHNICS PRESS TENDER PCSM Comment: ----ADDITIONAL INFORMATION---- Performed at the Point of Care Glucose, POCT, B 117 70 - 140 mg/dL 09/30/2022 10:54 AM PYROTECHNICS PRESS TENDER PCSM Comment: ----ADDITIONAL INFORMATION---- Performed at the Point of Care Hematocrit, POCT, B 44.0 35.5 - 44.9 % 09/30/2022 10:54 AM PYROTECHNICS PRESS TENDER PCSM Comment: ----ADDITIONAL INFORMATION---- Performed at the Point of Care Blood 09/30/2022 10:3 8 AM PYROTECHNICS PRESS TENDER 09/30/2022 10:54 AM PYROTECHNICS PRESS TENDER Unknown Provider LAB POCT ORDERABLES - DEVICE POC RST [facility] [address] [place] [address], [facility] PCSM [facility] [place] POC [address] [place] [address] from Last 3 Months or Most Recently Relevant to Health Maintenance Advance Directives For more information, please contact: [phone] * Full Code (Latest Code Status on File) Date Activated Date Inactivated Comments 09/30/2022 4:41 PM 10/02/2022 6:08 PM Question Answer Comments Full Code: Discussed Care Teams Item Processing Clerk Relationship Specialty Start Date End Date Darius Shaw M.D. [address] [phone] PCP - General Family Medicine 09/27/22
--- OUTSIDE RECORDS SUMMARY | 2024-01-13 21:36 | XMS_ITS | Encounter Summary ---
Author Name Unknown Organization [facility] Address [address] [place] [address] Care Team Providers Care Senior Android Software Engineer Name Role Phone Yung Madrigal MD Unavailable Unavailable Winston Villatoro OD Unavailable [phone] Denise Woodson Ra, APRN BOOM STICK MAN Unavailable + [phone] Denise Woodson Ra, APRN BOOM STICK MAN Primary Care Provid er Encounter Details Date Type Department Care Team (Late st Contact Info) Description 01/10/2023 [facility]C [facility] [address] [place] [address] Arianna Lo Social History Tobacco [...] 3:30 PM CDT [facility] [address] [place] [address] Jacque Alexis APRN BOOM STICK MAN [address] [place] [address] documented as of this encounter Visit Diagnoses Not on filedocumented in this encounter Additional Health Concerns Assessment Noted Time PHQ-9 Depression Total Score: 0 06/23/20 21 4:11 PM CDT documented as of this encounter Care Teams Senior Android Software Engineer Relationship Specialty Start Date End Date Yung Madrigal MD RETIRED PCP - Orthopaedics Orthopedics 08/26/12 Winston Villatoro OD [facility] [place] [address] [place] [address] PCP - Ophthalmology Ophthalmology 02/11/13 Denise Woodson Ra, APRN BOOM STICK MAN [address] [place] [address] PCP - General Family Practice 09/21/20 Denise Woodson Ra, APRN BOOM STICK MAN [address] [place] [address] Assigned PCP 07/17/20 documented as of this encounter
--- OUTSIDE RECORDS SUMMARY | 2024-01-13 21:36 | XMS_ITS ---
Author Name Unknown Organization [facility] Address [address] [place] [address] Care Team Providers Care Brick Yard Hand Name Role Phone Unavailable Unavailable Unavailable Surgery Details Not on file Complications Check Surgery Details section. Procedure Estimated Blood Loss Check Surgery Details section. Procedure Findings Check Surgery Details section. Procedure Specimens Taken Check Surgery Details section.
--- OUTSIDE RECORDS SUMMARY | 2024-01-13 21:36 | XMS_ITS | Encounter Summary ---
Author Name Unknown Organization [facility] Address [address] [place] [address] Care Team Providers Care Senior Statistician Name Role Phone Darius Shaw M.D. Primary Care Provider Encounter Details Date Type Department Care Team (Late st Contact Info) Description 05/12/2013 Historical Ophthalmology RST OPH Jonathan Bonilla M.D. [address] [place] [phone] Social History Tobacco Use Types Packs/Day Years [...] corneal thickness CDM Reports - EYEGEN Id: [id number] Status: Fnl documented in this encounter Plan of Treatment Not on file documented as of this encounter Visit Diagnoses Not on filedocumented in this encounter Additional Health Concerns Infection Onset Date Last Indicated Resolved Time COVID19 Pending 07/11/2020 07/11/2020 07/12/2020 5 :56 PM CDT COVID19 Pending 07/17/2020 07/17/2020 07/17/2020 9 :18 PM HEAD SOFT SUGAR OPERATOR COVID19 Pending 09/19/2020 09/19/2020 10/09/2020 4 :45 AM HEAD SOFT SUGAR OPERATOR COVID19 Pending 10/25/2020 10/26/2020 10/27/2020 9 :59 AM HEAD SOFT SUGAR OPERATOR COVID19 Pending 06/03/2021 06/03/2021 06/03/2021 9 :40 AM CDT COVID19 Pending 06/03/2021 06/03/2021 06/03/2021 1 0:36 PM CDT COVID19 Pending 08/09/2021 08/09/2021 08/11/2021 1 2:57 AM HEAD SOFT SUGAR OPERATOR COVID19 Pending 06/26/2022 06/26/2022 06/26/2022 5 :47 PM CDT Assessment Noted Time PHQ-9 Depression Total Score: 8 09/18/19 13 7:41 AM HEAD SOFT SUGAR OPERATOR documented as of this encounter Care Teams Senior Statistician Relationship Specialty Start Date End Date Darius Shaw M.D. [address] [phone] PCP - General Family Medicine 09/27/22 documented as of this encounter
--- OUTSIDE RECORDS SUMMARY | 2024-01-13 21:36 | XMS_ITS | Clinical Summary ---
Author Name Unknown Organization [facility] Address [address] [place] [address] Care Team Providers Care 911 Emergency Dispatcher Name Role Phone Darius Shaw M.D. Primary Care Provider [phone] Source Comments Patient records contain information from all sites at [facility]. For routine questions regarding patient records, call [phone] during business hours, M-F 8:00 AM - 5:00 PM Central Time. Record requests for emergency care only can be directed to [phone] at any time.[facility] Allergies Active [...] week 01/10/2023 How often do you attend alevism or protestant serv ices? Never 01/10/2023 Do you belong to any clubs o r organizations such as alevism groups, unions, fraternal or athletic groups, or [...] Answer Date Recorded PHQ-2 Score 3 01/10/2023 [facility] - Occupational [...] place to sleep or slept in a penitentiary (including now)? No 01/10/2023 Depression Answer Date [...] 11/07/2011, 10/04/2011 Medical Devices Implanted Type Area Urban And Regional Planner Device Identifier Shelf Expiration Date Model / Serial / Lot Mesh Or Patch Mesh or Patch Heart Description:Amplatzer Septal Occluder Asd Closure Device 34mm - Sanders [id number] Implanted:Qty: 1 on 06/20/2006 Septal Defect Occluder Device Other/Legacy - See Implant Description Description:Device Manufactu [facility]. Device Status Text - [id number]. Procedures Procedure Name Priority Date/Time Associated Diagnosis Comments BI BREAST SCREENING BILATERAL WITH TOMOSYNTHESIS RAD - Routine (most inpatients and all outpatients) 07/30/2023 2:38 PM REINFORCER Screening Mammogram Breast Cancer COLOGUARD Routine 10/28/2022 5:54 PM REINFORCER Screening Cancer Colon VBG & LYTES CG8+, POCT, B Routine 09/30/2022 10:38 AM REINFORCER EXTI LIPID PANEL REFLEX TO DIRECT LDL Routine 07/27/2021 8:57 AM REINFORCER from Last 3 Months or Most Recently Relevant to Health Maintenance Results * BI Breast Screening Bilateral with Tomosynthesis (07/30/2023 2:38 PM REINFORCER) Anatomical Region Laterality Modality Breast, Breast Imaging RST L OS, Breast Imaging ARZ LOS, Breast Imaging FLA LOS Bilateral Mammography 08/01/2023 12:2 8 PM REINFORCER Impressions 08/01/2023 12:33 PM REINFORCER Negative. RECOMMENDATION: ??Annual Screening Mammogram ASSESSMENT: ??BI-RADS: 1: Negative. Narrative 08/01/2023 12:33 PM REINFORCER EXAM: ??BI BREAST SCREENING BILATERAL WITH TOMOSYNTHESIS [...] ASSESSMENT: BI-RADS: 1: Negative. Darius Shaw M.D. [place] BI PROCEDURES * Cologuard-Sent Out Lab (10/28/2022 5:54 PM REINFORCER) Result Negative Negative 11/03/2022 2:48 AM REINFORCER [place] Comment: NEGATIVE TEST RESULT. A negative [...] Melchor. et al, N Engl J Med 2014;370(14):6574-4263) The normal value (reference range) for this [...] Cancer Society Guideline for Colorectal Cancer Screening: https://www.cancer.org/cancer/etqrz-khagdm-ypciip/detection- diagnosis-staging/acs-recommendations.html.; Ming MARTINEZ, Barbra TREJO, Erna SimsK, Colorectal Cancer Screening: Recommendations for Physicians and Patients from the U.S. Multi-Society Task Force on Colorectal Cancer Screening , Am J Gastroenterology 2017; 112:4943-0009. TEST DESCRIPTION: Composite algorithmic analysis of stool [...] (Yenny Adkins al, N Engl J Med 2014;370(14):8025-3766.) Cologuard may produce a false negative or [...] can be accessed at the following location: www.ShopGo/results. Additional description of the Cologuard test process, warnings and precautions can be found at www.[employer].com. Stool (Stool) 10/28/2022 5:5 4 PM REINFORCER 10/30/2022 1:57 PM REINFORCER Darius Shaw M.D. LAB BODY FLUIDS AND STOOLS ORDERABLES [facility] [address] [place] [address] [employer] [address] [facility], [address] [place] [address] * Venous Blood Gas and Electrolytes CG8+, POCT (09/30/2022 10:38 AM REINFORCER) Sample Site, POCT Venstick 09/30/2022 10:54 AM REINFORCER PCSM Comment: ----ADDITIONAL INFORMATION---- Performed at the Point of Care pH, Venous, POCT, B 7.43 7.32 - 7.43 09/30/2022 10:54 AM REINFORCER PCSM Comment: ----ADDITIONAL INFORMATION---- Performed at the Point of Care pCO2, Venous, POCT, B 46 41 - 51 mm Hg 09/30/2022 10:54 AM REINFORCER PCSM Comment: ----ADDITIONAL INFORMATION---- Performed at the Point of Care pO2, Venous, POCT, B 25 Not Applicable mm Hg 09/30/2022 10:54 AM REINFORCER PCSM Comment: ----ADDITIONAL INFORMATION---- Performed at the Point of Care Base Excess, Venous, POCT, B 6 Not Applicable mmol/L 09/30/2022 10:54 AM REINFORCER PCSM Comment: ----ADDITIONAL INFORMATION---- Performed at the Point of Care HCO3, Venous, POCT, B 31 Not Applicable mmol/L 09/30/2022 10:54 AM REINFORCER PCSM Comment: ----ADDITIONAL INFORMATION---- Performed at the Point of Care Sodium, POCT, B 140 135 - 145 mmol/L 09/30/2022 10:54 AM REINFORCER PCSM Comment: ----ADDITIONAL INFORMATION---- Performed at the Point of Care Potassium, POCT, B 4.3 3.6 - 5.2 mmol/L 09/30/2022 10:54 AM REINFORCER PCSM Comment: ----ADDITIONAL INFORMATION---- Performed at the Point of Care Calcium, Ionized, POCT, B 5.20 4.65 - 5.30 mg/dL 09/30/2022 10:54 AM REINFORCER PCSM Comment: ----ADDITIONAL INFORMATION---- Performed at the Point of Care Glucose, POCT, B 117 70 - 140 mg/dL 09/30/2022 10:54 AM REINFORCER PCSM Comment: ----ADDITIONAL INFORMATION---- Performed at the Point of Care Hematocrit, POCT, B 44.0 35.5 - 44.9 % 09/30/2022 10:54 AM REINFORCER PCSM Comment: ----ADDITIONAL INFORMATION---- Performed at the Point of Care Blood 09/30/2022 10:3 8 AM REINFORCER 09/30/2022 10:54 AM REINFORCER Unknown Provider LAB POCT ORDERABLES - DEVICE POC RST [facility] [address] [place] [address], [place] [facility] POC [address] [place] [address] from Last 3 Months or Most Recently Relevant to Health Maintenance Advance Directives For more information, please contact: [phone] * Full Code (Latest Code Status on File) Date Activated Date Inactivated Comments 09/30/2022 4:41 PM 10/02/2022 6:08 PM Question Answer Comments Full Code: Discussed Care Teams 911 Emergency Dispatcher Relationship Specialty Start Date End Date Darius Shaw M.D. [place]: [id number] [address] [place] [phone] PCP - General Family Medicine 09/27/22
--- OUTSIDE RECORDS SUMMARY | 2024-01-13 21:36 | XMS_ITS | Continuity of Care Document ---
Author Name Unknown Organization [facility] Address [address] [address] [place] [address] Phone Care Team Providers Care Corporate Director Of Human Resources Name Role Phone Unavailable Unavailable Unavailable Procedures Procedure Date Ugi Endo; Dx W/wo Collec Specm Advance Directives Directive Yes / No Effective Date File Name No Information Encounters Encounter Description Practice Location Reason(s) For Visit Diagnoses Date Provider Providers Copied on Encounter [facility], [address] [address], [place], [place], [id number], [place] tel:[phone] [facility] No Information 021 No Information [facility], [address] [address], [facility] [place], [id number], [place] tel:[phone] [facility] No Information 021 No Information [facility], [address] [address], [place], [place], [id number], [place] tel:[phone] No Information Unknown No Information Family History [...]
--- OUTSIDE RECORDS SUMMARY | 2024-01-13 21:36 | XMS_ITS | Encounter Summary ---
Author Name Unknown Organization [facility] Address [address] [place] [address]. [place] [address] Care Team Providers Care Digital Photo Printer Name Role Phone Yung Madrigal MD Unavailable Unavailable Winston Villatoro OD Unavailable Denise Woodson Ra, APRN BELT CONVEYOR DRIER Unavailable + [phone] Denise Woodson Ra, APRN BELT CONVEYOR DRIER Primary Care Provid er Reason for Visit * Reason Comments Medication Refill Encounter Details Date Type Department Care Team (Late st Contact Info) Description 02/19/2022 Refill [facility] [address] [place] [address] Denise Woodson Ra, APRN BELT CONVEYOR DRIER [address] [place] [address] Medication Refill Social History Tobacco [...] CDT Office Visit [facility] [address] [facility] [place] [address] Jacque Alexis APRN BELT CONVEYOR DRIER [address] [place] [address] documented as of this encounter Visit Diagnoses Diagnosis Moderate persistent asthma without complication Unspecified asthma documented in this encounter Additional Health Concerns Assessment Noted Time PHQ-9 Depression Total Score: 0 06/23/20 21 4:11 PM CDT documented as of this encounter Care Teams Digital Photo Printer Relationship Specialty Start Date End Date Yung Madrigal MD RETIRED PCP - Orthopaedics Orthopedics 08/26/12 Winston Villatoro OD [facility] [address] [facility] [address] [place] [address] PCP - Ophthalmology Ophthalmology 02/11/13 Denise Woodson Ra, APRN BELT CONVEYOR DRIER [address] [place] [address] PCP - General Family Practice 09/21/20 Denise Woodson Ra, APRN BELT CONVEYOR DRIER [address] [place] [address] Assigned PCP 07/17/20 documented as of this encounter
--- OUTSIDE RECORDS SUMMARY | 2024-01-13 21:36 | XMS_ITS | Referral Summary ---
Author Name Unknown Organization [facility] Address [address] [place] [address] Care Team Providers Care Technology Integration Specialist Name Role Phone Yung Madrigal MD Unavailable Unavailable Winston Villatoro OD Unavailable [phone] Denise Woodson Ra, APRN PRIMARY THERAPIST Unavailable [phone] Denise Woodson Ra, APRN PRIMARY THERAPIST Primary Care Provid er Allergies Active Allergy [...] (FLONASE) 50 MCG/ACT nasal sprayIndications:Chr onic rhinitis Long Bottom 2 sprays into both nostrils daily 16 [...] Comments Blood Pressure 108/68 07/27/2021 8:28 AM BUSINESS DEPARTMENT CHAIR Pulse 68 07/27/2021 8:28 AM BUSINESS DEPARTMENT CHAIR Temperature 36.9 ??C (98.4 ??F) 07/27/2021 8:28 AM CS T Respiratory Rate 12 07/27/2021 8:28 AM BUSINESS DEPARTMENT CHAIR Oxygen Saturation 97% 07/27/2021 8:28 AM BUSINESS DEPARTMENT CHAIR Inhaled Oxygen Concentration - - Weight 99.3 kg (219 lb) 07/27/2021 8:28 AM BUSINESS DEPARTMENT CHAIR Height 174.6 cm (5' 8.75) 02/08/2021 10:22 AM C DT Body Mass Index 32.58 02/08/2021 10:22 AM CDT Plan of Treatment Upcoming Encounters Date Type Department Care Team (Late st Contact Info) Description 01/15/2024 3:30 PM CDT [facility] [address] [place] [address] Jacque Alexis, BARRERA PRIMARY THERAPIST [address] [place], [place] [id number] Procedures Procedure Name Priority Date/Time Associated Diagnosis Comments MA SCREENING BILATERAL W/ MAT Routine 04/25/2022 5:03 PM CDT Visit for screening mammogram COMPREHENSIVE METABOLIC PANEL Routine 07/27/2021 8:57 AM BUSINESS DEPARTMENT CHAIR Routine general medical examination at a [facility] care facility CARDIOVASCULAR SCREENING; LDL GOAL LESS THAN 160 LIPID REFLEX TO DIRECT LDL PANEL Routine 07/27/2021 8:57 AM BUSINESS DEPARTMENT CHAIR CARDIOVASCULAR SCREENING; LDL GOAL LESS THAN 160 [...] patient. JEVON HOWELL MD Denise Woodson APRN PRIMARY THERAPIST IMG MAMMOGRA PHY ORDERABLES * (ABNORMAL) Lipid panel reflex to direct LDL Fasting (07/27/2021 8:57 AM BUSINESS DEPARTMENT CHAIR) Cholesterol 202(H) <200 mg/dL 07/28/2021 10:12 AM BUSINESS DEPARTMENT CHAIR [facility] Triglycerides 91 <150 mg/dL 07/28/2021 10:12 AM BUSINESS DEPARTMENT CHAIR [facility] Direct Measure HDL 56 >=50 mg/dL 07/28/2021 10:12 AM BUSINESS DEPARTMENT CHAIR [facility] LDL Cholesterol Calculated 128(H) <=100 mg/dL 07/28/2021 10:12 AM BUSINESS DEPARTMENT CHAIR [facility] Non HDL Cholesterol 146(H) <130 mg/dL 07/28/2021 10:12 AM BUSINESS DEPARTMENT CHAIR [facility] Patient Fasting > 8hrs? Yes 07/28/2021 10:12 AM BUSINESS DEPARTMENT CHAIR [facility] Blood STRUCTURE OF RIGHT UPPER LIMB / Unknown Venipuncture / Unknown 07/27/2021 8:57 AM BUSINESS DEPARTMENT CHAIR 07/27/2021 8:57 AM BUSINESS DEPARTMENT CHAIR Narrative [facility] - 07/28/2021 10:12 AM BUSINESS DEPARTMENT CHAIR Cholesterol Desirable: ??<200 mg/dL Triglycerides Normal: ??Less [...] ??Greater than or equal to 220 mg/dL Densie Woodson APRN PRIMARY THERAPIST LAB - BLOOD ORDERABLES OX LABORATORY [facility] [address] Lab (no room number, 1st floor of clinic) [place] [address], [facility] [phone] * Comprehensive metabolic panel (BMP + Alb, Alk Phos, ALT, AST, Total. Bili, TP) (07/27/2021 8:57 AM BUSINESS DEPARTMENT CHAIR) Sodium 139 133 - 144 mmol/L 07/28/2021 10:12 AM BUSINESS DEPARTMENT CHAIR [facility] Potassium 4.0 3.4 - 5.3 mmol/L 07/28/2021 10:12 AM BUSINESS DEPARTMENT CHAIR [facility] Chloride 105 94 - 109 mmol/L 07/28/2021 10:12 AM BUSINESS DEPARTMENT CHAIR [facility] Carbon Dioxide (CO2) 26 20 - 32 mmol/L 07/28/2021 10:12 AM BUSINESS DEPARTMENT CHAIR [facility] Anion Gap 8 3 - 14 mmol/L 07/28/2021 10:12 AM BUSINESS DEPARTMENT CHAIR [facility] Urea Nitrogen 20 7 - 30 mg/dL 07/28/2021 10:12 AM BUSINESS DEPARTMENT CHAIR [facility] Creatinine 0.74 0.52 - 1.04 mg/dL 07/28/2021 10:12 AM BUSINESS DEPARTMENT CHAIR [facility] Calcium 8.8 8.5 - 10.1 mg/dL 07/28/2021 10:12 AM BUSINESS DEPARTMENT CHAIR [facility] Glucose 95 70 - 99 mg/dL 07/28/2021 10:12 AM BUSINESS DEPARTMENT CHAIR [facility] Alkaline Phosphatase 67 40 - 150 U/L 07/28/2021 10:12 AM BUSINESS DEPARTMENT CHAIR [facility] AST 8 0 - 45 U/L 07/28/2021 10:12 AM BUSINESS DEPARTMENT CHAIR [facility] ALT 18 0 - 50 U/L 07/28/2021 10:12 AM BUSINESS DEPARTMENT CHAIR [facility] Protein Total 7.6 6.8 - 8.8 g/dL 07/28/2021 10:12 AM BUSINESS DEPARTMENT CHAIR [facility] Albumin 3.4 3.4 - 5.0 g/dL 07/28/2021 10:12 AM BUSINESS DEPARTMENT CHAIR [facility] Bilirubin Total 0.5 0.2 - 1.3 mg/dL 07/28/2021 10:12 AM BUSINESS DEPARTMENT CHAIR [facility] GFR Estimate >90 >60 mL/min/1.7 3m2 07/28/2021 10:12 AM BUSINESS DEPARTMENT CHAIR [facility] Comment:As of March 26, 2021, eGFR is calculated by the CKD-EPI creatinine equation, without race adjustment. eGFR can be influenced by muscle mass, exercise, and diet. The reported eGFR is an estimation only and is only applicable if the renal function is stable. Blood STRUCTURE OF RIGHT UPPER LIMB / Unknown Venipuncture / Unknown 07/27/2021 8:57 AM BUSINESS DEPARTMENT CHAIR 07/27/2021 8:57 AM BUSINESS DEPARTMENT CHAIR Denise Woodson APRN PRIMARY THERAPIST LAB - BLOOD ORDERABLES [facility] [address] Lab (no room number, 1st floor of clinic) [place] [address], [facility] [phone] from Last 3 Months or Most Recently Relevant to Health Maintenance Care Teams Technology Integration Specialist Relationship Specialty Start Date End Date Yung Madrigal MD RETIRED PCP - Orthopaedics Orthopedics 08/26/12 Winston Villatoro OD [facility] [address] [facility] [address] [place] [address] PCP - Ophthalmology Ophthalmology 02/11/13 Denise Woodson Ra, APRN PRIMARY THERAPIST [address] [place] [address] PCP - General Family Practice 09/21/20 Denise Woodson Ra, APRN PRIMARY THERAPIST [address] [address] [place] [address] Assigned PCP 07/17/20
--- OUTSIDE RECORDS SUMMARY | 2024-01-13 21:37 | XMS_ITS | Encounter Summary ---
Author Name Unknown Organization [place] Address [address] [place] [address] Care Team Providers Care Dry Cleaning Checker Name Role Phone Yung Madrigal MD Unavailable Unavailable Winston Villatoro OD Unavailable [phone] Serum, Clara Garland MD Primary Care Provider Serum, Clara Garland MD Unavailable [phone] Denise Woodson Ra, APRN FLAKING ROLL OPERATOR Unavailable [phone] Denise Woodson Ra, APRN FLAKING ROLL OPERATOR Primary Care Provid er Encounter Details Date Type Department Care Team (Late st Contact Info) Description 06/16/2019 MyC Medical Advice [address] [place] [address] Serum, Clara Garland MD [address] [place] [address] Social History Tobacco Use Types [...] Description 01/15/2024 3:30 PM CDT Office Visit [address] [address] Jacque Alexis APRN FLAKING ROLL OPERATOR [address] [place] [address] documented as of this encounter Visit Diagnoses Not on filedocumented in this encounter Additional Health Concerns Assessment Noted Time PHQ-9 Depression Total Score: 0 06/15/20 19 7:09 PM CDT documented as of this encounter Care Teams Dry Cleaning Checker Relationship Specialty Start Date End Date Yung Madrigal MD RETIRED PCP - Orthopaedics Orthopedics 08/26/12 Winston Villatoro OD [facility] [place] [address] [place] [address] PCP - Ophthalmology Ophthalmology 02/11/13 Clara Cornell MD [facility] [place] [address] [place] [address] PCP - General Internal Medicine 02/07/17 09/20/20 Denise Woodson Ra, APRN FLAKING ROLL OPERATOR [address] [place] [id number] PCP - General Family Practice 09/21/20 Clara Cornell MD [address] [place] [address] Assigned PCP 01/17/17 07/16/20 Denise Woodson Ra, APRN FLAKING ROLL OPERATOR [address] [place] [id number] Assigned PCP 07/17/20 documented as of this encounter
--- OUTSIDE RECORDS SUMMARY | 2024-01-13 21:37 | XMS_ITS | Encounter Summary ---
Author Name Unknown Organization [place] Address [address] [place] [address] Care Team Providers Care Gymnastic Coach Name Role Phone Timmy Perez MD Unavailable Unavailable Yung Madrigal MD Unavailable Unavailable Winston Villatoro OD Unavailable [phone] Apple Sykes MD Primary Care Provider [phone] Westley Bates MD Unavailable [phone] Alessandra Cabrales APRN BAKERY SUPERVISOR Primary Car e Provider Serum, Clara Garland MD Primary Care Provider Serum, Clara Garland MD Unavailable [phone] Serum, Clara Garland MD Unavailable [phone] Denise Woodson Ra, APRN BAKERY SUPERVISOR Unavailable + [phone] Denise Woodson Ra, APRN, CNP Primary Care Provid er Encounter Details Date Type Department Care Team (Late st Contact Info) Description 05/19/2013 MyC Medical Advice [facility] Orthopedics [address] [place] [phone] Yung Madrigal MD RETIRED Social History Tobacco [...] 3:30 PM CDT Office Visit [facility] [address] [place] [address] Jacque Alexis APRN BAKERY SUPERVISOR [address] [place] [address] documented as of this encounter Visit Diagnoses Not on filedocumented in this encounter Care Teams Gymnastic Coach Relationship Specialty Start Date End Date Timmy Perez MD PCP - Obstetrics/Gynecology 03/02/08 08/07/15 Yung Madrigal MD RETIRED PCP - Orthopaedics Orthopedics 08/26/12 Winston Villatoro OD [facility] [place] [address] [place] [address] PCP - Ophthalmology Ophthalmology 02/11/13 Apple Sykes MD [facility] [place] [address] [place] [address] PCP - General Family Practice 05/04/13 10/25/16 Westley Bates MD XXX RETIRED XXX [address] [place] [address] PCP - ENT Otolaryngology 05/14/13 07/28/18 Alessandra Cabrales APRN BAKERY SUPERVISOR [address] [facility] [place] [address] PCP - General Nurse Practitioner 10/26/16 02/06/17 Clara Cornell MD [address] [facility] [place] [address] PCP - General Internal Medicine 02/07/17 09/20/20 Clara Cornell MD [address] [place] [address] PCP - Assigned PCP 01/17/17 11/18/18 Denise Woodson Ra, APRN BAKERY SUPERVISOR [address] [place] [address] PCP - General Family Practice 09/21/20 Clara Cornell MD [address] [place] [address] Assigned PCP 01/17/17 07/16/20 Denise Woodson Ra, APRN BAKERY SUPERVISOR [address] [place] [id number] Assigned PCP 07/17/20 documented as of this encounter
--- OUTSIDE RECORDS SUMMARY | 2024-01-13 21:37 | XMS_ITS | Encounter Summary ---
Author Name Unknown Organization [facility] Address [address] [place] [address]. [place] [address] Care Team Providers Care Communications Station Manager Name Role Phone Yung Madrigal MD Unavailable Unavailable Winston Villatoro OD Unavailable Denise Woodson Ra, APRN SCIENTIFIC DATABASE CURATOR Unavailable Denise Woodson Ra, APRN SCIENTIFIC DATABASE CURATOR Primary Care Provid er Reason for Visit * Reason Onset Date Comments Medication Request 04/20/2021 escitalopram (LEXAPRO) 10 MG tablet Encounter Details Date Type Department Care Team (Late st Contact Info) Description 04/20/2021 MyC Medical Advice [facility] [address] [place] [address] Denise Woodson Ra, APRN SCIENTIFIC DATABASE CURATOR [address] [place] [address] Medication Request (escitalopram (LEXAPRO)... Social [...] CDT [facility] [address] [place] [address] Jacque Alexis APRN SCIENTIFIC DATABASE CURATOR [address] [place] [address] documented as of this encounter Visit Diagnoses Diagnosis Generalized anxiety disorder Mild recurrent major depression (H24) Major depressive disorder, recurrent episode, mild documented in this encounter Additional Health Concerns Assessment Noted Time PHQ-9 Depression Total Score: 0 01/05/20 21 9:31 AM CDT documented as of this encounter Care Teams Communications Station Manager Relationship Specialty Start Date End Date Yung Madrigal MD RETIRED PCP - Orthopaedics Orthopedics 08/26/12 Winston Villatoro OD [facility] [place] [address] [facility] [address] [place] [address] PCP - Ophthalmology Ophthalmology 02/11/13 Denise Woodson Ra, APRN SCIENTIFIC DATABASE CURATOR [address] [place] [address] PCP - General Family Practice 09/21/20 Denise Woodson Ra, APRN SCIENTIFIC DATABASE CURATOR [address] [place] [address] Assigned PCP 07/17/20 documented as of this encounter
--- OUTSIDE RECORDS SUMMARY | 2024-01-13 21:37 | XMS_ITS | Encounter Summary ---
Author Name Unknown Organization [place] Address [address] [place] [address]. [place] [address] Care Team Providers Care Hydraulic Jack Mechanic Name Role Phone Yung Madrigal MD Unavailable Unavailable Winston Villatoro OD Unavailable [phone] Denise Woodson Ra, APRN CROSS ROLLER Unavailable + [phone] Denise Woodson Ra, APRN CROSS ROLLER Primary Care Provid er Reason for Visit * Reason Onset Date Comments URI 09/21/2020 Encounter Details Date Type Department Care Team (Late st Contact Info) Description 09/21/2020 [facility] Medical Advice [facility] [address] [place] [address] Denise Woodson Ra, APRN CROSS ROLLER [address] [place] [address] URI Social History Tobacco Use [...] COVID-19? No / Unsure 09/21/2020 12:04 PM MORTGAGE CLOSING CLERK documented as of this encounter Miscellaneous Notes * Telephone Encounter - Kati Yang RN - 09/21/2020 10:54 AM CST [employer] message sent to patient. Kati Yang RN GAGE CLOSING CLERK documented in this encounter Plan of Treatment Upcoming Encounters Date Type Department Care Team (Late st Contact Info) Description 01/15/2024 3:30 PM CDT [facility] [address] [place] [address] Jacque Alexis APRN CROSS ROLLER [address] [place], [place] [id number] documented as of this encounter Visit Diagnoses Not on filedocumented in this encounter Additional Health Concerns Assessment Noted Time PHQ-9 Depression Total Score: 0 06/15/20 19 7:09 PM CDT documented as of this encounter Care Teams Hydraulic Jack Mechanic Relationship Specialty Start Date End Date Yung Madrigal MD RETIRED PCP - Orthopaedics Orthopedics 08/26/12 Winston Villatoro OD [facility] [place] [address] [facility] [address] [place] [address] PCP - Ophthalmology Ophthalmology 02/11/13 Denise oWodson Ra, APRN CROSS ROLLER [address] [place] [address] PCP - General Family Practice 09/21/20 Denise Woodson Ra, APRN CROSS ROLLER [address] [place] [address] Assigned PCP 07/17/20 documented as of this encounter
--- OUTSIDE RECORDS SUMMARY | 2024-01-13 21:37 | XMS_ITS | Encounter Summary ---
Author Name Unknown Organization [place] Address [address] [place] [address] Care Team Providers Care Post Hole Digging Machine Operator Name Role Phone Yung Madrigal MD Unavailable Unavailable Winston Villatoro OD Unavailable [phone] Serum, Clara Garland MD Primary Care Provider Serum, Clara Garland MD Unavailable [phone] Denise Woodson Ra, APRN WASTE CHOPPER Unavailable [phone]- [phone] Denise Woodson Ra, APRN WASTE CHOPPER Primary Care Provid er Reason for Visit * Reason Onset Date Comments LAB REQUEST 06/16/2019 Encounter Details Date Type Department Care Team (Late st Contact Info) Description 06/16/2019 [facility] Medical Advice [address] [place] [address] Serum, Clara Garland MD [address] [place] [address] LAB REQUEST Social History Tobacco [...] RN - 06/16/2019 4:17 PM CDT See [employer] message regarding yesterday's appointment. Patient requesting to check TSH and antibodies for pt reported possible yonas's. Pended TSH for provider review. documented in this encounter Plan of Treatment Upcoming Encounters Date Type Department Care Team (Late st Contact Info) Description 01/15/2024 3:30 PM CDT Office Visit [facility] [address] [place] [address] Jacque Alexis APRN WASTE CHOPPER [address] [place] [address] documented as of this encounter Results * Follicle stimulating hormone (06/22/2019 3:36 PM CDT) FSH 9.5 IU/L 06/23/2019 2:32 PM CDT [facility] Comment: FSH Reference Range Female: Follicular ?2.5-10.2 ?Mid-cycle ? 3.4-33.4 ?Luteal ?1.5-9.1 ?Postmenopausal ??23.0-116.3 Blood specimen (specimen) 06/22/2019 3:36 PM CDT 06/22/2019 3:37 PM CDT Clara Cornell MD LAB - BLOOD ORD ERABLES [facility] [address] [place] [address] * TSH with free T4 reflex FUTURE anytime (06/22/2019 3:36 PM CDT) TSH 3.30 0.40 - 4.00 mU/L 06/23/2019 3:12 PM CDT [facility] Blood specimen (specimen) 06/22/2019 3:36 PM CDT 06/22/2019 3:37 PM CDT Clara Cornell MD LAB - BLOOD ORD ERABLES [facility] [address] [place] [address] documented in this encounter Visit Diagnoses Diagnosis Anti-TPO antibodies present- Primary Other and unspecified nonspecific immunological findings Excessive sweating Generalized hyperhidrosis documented in this encounter Additional Health Concerns Assessment Noted Time PHQ-9 Depression Total Score: 0 06/15/20 19 7:09 PM CDT documented as of this encounter Care Teams Post Hole Digging Machine Operator Relationship Specialty Start Date End Date Yung Madrgial MD RETIRED PCP - Orthopaedics Orthopedics 08/26/12 Winston Villatoro OD [facility] [place] [address] [place] [address] PCP - Ophthalmology Ophthalmology 02/11/13 Clara Cornell MD [facility] [place] [address] [place] [address] PCP - General Internal Medicine 02/07/17 09/20/20 Denise Woodson Ra, APRN WASTE CHOPPER [address] [place] [address] PCP - General Family Practice 09/21/20 Clara Cornell MD [address] [place] [address] Assigned PCP 01/17/17 07/16/20 Denise Woodson Ra, APRN WASTE CHOPPER [address] [place] [address] Assigned PCP 07/17/20 documented as of this encounter
--- OUTSIDE RECORDS SUMMARY | 2024-01-13 21:37 | XMS_ITS | Encounter Summary ---
Author Name Unknown Organization [place] Address [address] [place] [address]. [place] [address] Care Team Providers Care Senior Database Administrator Name Role Phone Yung Madrigal MD Unavailable Unavailable Winston Villatoro OD Unavailable [phone] Denise Woodson Ra, APRN CLINIC NURSE Unavailable Denise Woodson Ra, APRN CLINIC NURSE Primary Care Provid er Encounter Details Date Type Department Care Team (Late st Contact Info) Description 06/13/2021 [facility] Medical Advice [facility] [address] [place] [address] Denise Woodson Ra, APRN CLINIC NURSE [address] [place] [address] Insomnia, unspecified type Social History [...] a refill on file. Prescription approved per [facility] protocol. Mary Caraballo RN on 06/13/2021 at 5:18 PM documented in this encounter Plan of Treatment Upcoming Encounters Date Type Department Care Team (Late st Contact Info) Description 01/15/2024 3:30 PM CDT Office Visit [facility] [address] [place] [address] Jacque Alexis APRN CLINIC NURSE [address] [place] [address] documented as of this encounter Visit Diagnoses Diagnosis Insomnia, unspecified type documented in this encounter Additional Health Concerns Assessment Noted Time PHQ-9 Depression Total Score: 0 01/05/20 21 9:31 AM CDT documented as of this encounter Care Teams Senior Database Administrator Relationship Specialty Start Date End Date Yung Madrigal MD RETIRED PCP - Orthopaedics Orthopedics 08/26/12 Winston Villatoro OD [facility] [place] [address] [place] [address] PCP - Ophthalmology Ophthalmology 02/11/13 Denise Woodson Ra, APRN CLINIC NURSE [address] [place] [address] PCP - General Family Practice 09/21/20 Denise Woodson Ra, APRN CLINIC NURSE [address] [place] [address] Assigned PCP 07/17/20 documented as of this encounter
--- OUTSIDE RECORDS SUMMARY | 2024-01-13 21:37 | XMS_ITS | Encounter Summary ---
Author Name Unknown Organization [place] Address [address] [place] [address] Care Team Providers Care Programming Development Project Manager Name Role Phone Yung Madrigal MD Unavailable Unavailable Winston Villatoro OD Unavailable [phone] Serum, Clara Garland MD Primary Care Provider Serum, Clara Garland MD Unavailable [phone] Denise Woodson Ra, APRN COMPOSITION ROLL MAKER AND CUTTER Unavailable [phone] Denise Woodson Ra, APRN COMPOSITION ROLL MAKER AND CUTTER Primary Care Provid er Encounter Details Date Type Department Care Team (Late st Contact Info) Description 01/21/2019 [facility] Medical Advice [address] [place] [address] [facility] Social History Tobacco Use Types Packs/Day [...] 01/15/2024 3:30 PM CDT Office Visit [facility] [address] [place] [address] Jacque Alexis APRN COMPOSITION ROLL MAKER AND CUTTER [address] [place] [address] documented as of this encounter Visit Diagnoses Not on filedocumented in this encounter Additional Health Concerns Assessment Noted Time PHQ-9 Depression Total Score: 0 02/09/20 17 7:29 AM CDT documented as of this encounter Care Teams Programming Development Project Manager Relationship Specialty Start Date End Date Yung Madrigal MD RETIRED PCP - Orthopaedics Orthopedics 08/26/12 Winston Villatoro OD [facility] [place] [address] [place] [address] PCP - Ophthalmology Ophthalmology 02/11/13 Clara Cornell MD [facility] [place] [address] [place] [address] PCP - General Internal Medicine 02/07/17 09/20/20 Denise Woodson Ra, APRN COMPOSITION ROLL MAKER AND CUTTER [address] [place] [address] PCP - General Family Practice 09/21/20 Clara Cornell MD [address] [place] [address] Assigned PCP 01/17/17 07/16/20 Denise Woodson Ra, APRN COMPOSITION ROLL MAKER AND CUTTER [address] [place] [address] Assigned PCP 07/17/20 documented as of this encounter
--- OUTSIDE RECORDS SUMMARY | 2024-01-13 21:37 | XMS_ITS | Encounter Summary ---
Author Name Unknown Organization [place] Address [address] [place] [address] Care Team Providers Care Risk Reduction Counselor Name Role Phone Timmy Perez MD Unavailable Unavailable Yung Madrigal MD Unavailable Unavailable Frw, None Primary Care Provider Unavailrigoberto e Winston Villatoro OD Unavailable [phone] Apple Sykes MD Primary Care Provider [phone] Westley Bates MD Unavailable [phone] Alessandra Cabrales APRN BATCH UNIT TREATER Primary Car e Provider Serum, Clara Garland MD Primary Care Provider Serum, Clara Garland MD Unavailable [phone] Serum, Clara Garland MD Unavailable [phone] Denise Woodson Ra, APRN BATCH UNIT TREATER Unavailable [phone] Denise Woodson Ra, APRN BATCH UNIT TREATER Primary Care Provid er Reason for Visit * Reason Onset Date Comments Medication Question 04/21/2013 Farhan Saez [facility] Encounter Details Date Type Department Care Team (Late st Contact Info) Description 04/21/2013 Telephone [facility] in [facility] [address] [place] [address] [place] [address] Janna Rodriguez, set up person Question ([facility]) Social History Tobacco Use Types Packs/Day [...] CDT Office Visit [facility] [address] [place] [phone] Jacque Alexis APRN BATCH UNIT TREATER [address] [place], [place] [address] documented as of this encounter Visit Diagnoses Not on filedocumented in this encounter Care Teams Risk Reduction Counselor Relationship Specialty Start Date End Date Timmy Perez MD PCP - Obstetrics/Gynecology 03/02/08 08/07/15 Yung Madrigal MD RETIRED PCP - Orthopaedics Orthopedics 08/26/12 Frw, None PCP - General Family Practice 08/26/12 05/03/13 Winston iVllatoro OD [facility] [place] [address] [place] [address] PCP - Ophthalmology Ophthalmology 02/11/13 Apple Sykes MD [facility] [place] [address] [place] [address] PCP - General Family Practice 05/04/13 10/25/16 Westley Bates MD XXX RETIRED [place] [address] [place] [address] PCP - ENT Otolaryngology 05/14/13 07/28/18 GeorginaAlessandra Gómez APRN BATCH UNIT TREATER [address] [facility] [place] [address] PCP - General Nurse Practitioner 10/26/16 02/06/17 Clara Cornell MD [address] [facility] [place] [address] PCP - General Internal Medicine 02/07/17 09/20/20 Clara Cornell MD [address] [place] [address] PCP - Assigned PCP 01/17/17 11/18/18 Denise Woodson Ra, CLIENT SERVICES ACCOUNT MANAGER BATCH UNIT TREATER [address] [place] [address] PCP - General Family Practice 09/21/20 Clara Cornell MD [address] [place] [address] Assigned PCP 01/17/17 07/16/20 Denise Woodson Ra, CLIENT SERVICES ACCOUNT MANAGER BATCH UNIT TREATER [address] [place] [address] Assigned PCP 07/17/20 documented as of this encounter
--- OUTSIDE RECORDS SUMMARY | 2024-01-13 21:37 | XMS_ITS | Encounter Summary ---
Author Name Unknown Organization [place] Address [address] [place] [address] Care Team Providers Care Medical Staff Physician Name Role Phone Timmy Perez MD Unavailable Unavailable Yung Madrigal MD Unavailable Unavailable Frw, None Primary Care Provider Unavailrigoberto e Winston Villatoro OD Unavailable [phone] Apple Sykes MD Primary Care Provider [phone] Westley Bates MD Unavailable [phone] GeorginaAlessandra Gómez APRN LAY BROTHER Primary Car e Provider Serum, Clara Garland MD Primary Care Provider Serum, Clara Garland MD Unavailable [phone] Serum, Clara Garland MD Unavailable [phone] Denise Woodson Ra, APRN LAY BROTHER Unavailable + [phone] Denise Woodson Ra, APRN LAY BROTHER Primary Care Provid er Encounter Details Date Type Department Care Team (Late st Contact Info) Description 01/30/2006 [facility] [place] Inpatient Dept [address] [place] [address] Frw, Inpatient Provider Social History Tobacco Use [...] Pelvic pain. PROCEDURE: TOTAL VAGINAL HYSTERECTOMY. SURGEON: Chrsi TREND INVESTIGATOR: Radha ANESTHESIA: Spinal ESTIMATED BLOOD LOSS: [...] 01/15/2024 3:30 PM CDT [facility] [address] [place] [address] Jacque Alexis APRN LAY BROTHER [address] [place] [address] documented as of this encounter Visit Diagnoses Not on filedocumented in this encounter Care Teams Medical Staff Physician Relationship Specialty Start Date End Date Timmy Perez MD PCP - Obstetrics/Gynecology 03/02/08 08/07/15 Yung Madrigal MD RETIRED PCP - Orthopaedics Orthopedics 08/26/12 Frw, None PCP - General Family Practice 08/26/12 05/03/13 Winston Villatoro, OD [facility] [place] [address] [place] [address] PCP - Ophthalmology Ophthalmology 02/11/13 Apple Sykes MD [facility] [place] [address] [place] [address] PCP - General Family Practice 05/04/13 10/25/16 Westley Bates MD XXX RETIRED [place] [address] [place] [address] [place] [address] PCP - ENT Otolaryngology 05/14/13 07/28/18 Alessandra Cabrales APRN LAY BROTHER [address] [facility] [place] [address] PCP - General Nurse Practitioner 10/26/16 02/06/17 Clara Cornell MD [address] [facility] [place] [address] PCP - General Internal Medicine 02/07/17 09/20/20 Clara Cornell MD [address] [place] [address] PCP - Assigned PCP 01/17/17 11/18/18 Denise Woodson Ra, APRN LAY BROTHER [address] [place] [address] PCP - General Family Practice 09/21/20 Clara Cornell MD [address] [place] [address] Assigned PCP 01/17/17 07/16/20 Denise Woodson Ra, APRN LAY BROTHER [address] [place] [address] Assigned PCP 07/17/20 documented as of this encounter
--- OUTSIDE RECORDS SUMMARY | 2024-01-13 21:37 | XMS_ITS | Encounter Summary ---
Author Name Unknown Organization [place] Address [address] [place] [address] Care Team Providers Care Jawbone Puller Name Role Phone Yung Madrigal MD Unavailable Unavailable Winston Villatoro OD Unavailable [phone] Denise Woodson Ra, APRN TIE WORKER Unavailable + [phone] Denise Woodson Ra, APRN TIE WORKER Primary Care Provid er Encounter Details Date Type Department Care Team (Late Contact Info) Description 12/30/2020 [facility] [address] [place] [address] Jessica Phipps, BIBI Social History [...] PM CDT Office Visit [facility] [place] [address] [place] [address] Jacque Alexis APRN TIE WORKER [address] [place] [address] documented as of this encounter Visit Diagnoses Not on filedocumented in this encounter Additional Health Concerns Assessment Noted Time PHQ-9 Depression Total Score: 0 06/15/20 19 7:09 PM CDT documented as of this encounter Care Teams Jawbone Puller Relationship Specialty Start Date End Date Yung Madrigal MD RETIRED PCP - Orthopaedics Orthopedics 08/26/12 Winston Villatoro OD [facility] [place] [address] [facility] [address] [place] [address] PCP - Ophthalmology Ophthalmology 02/11/13 Denise Woodson Ra, APRN TIE WORKER [address] [place] [address] PCP - General Family Practice 09/21/20 Denise Woodson Ra, APRN TIE WORKER [address] [place] [address] Assigned PCP 07/17/20 documented as of this encounter
--- OUTSIDE RECORDS SUMMARY | 2024-01-13 21:37 | XMS_ITS | Encounter Summary ---
Author Name Unknown Organization [place] Address [address] [place] [address] Care Team Providers Care Horse Shoer Name Role Phone Timmy Perez MD Unavailable Unavailable Encounter Details Date Type Department Care Team (Late st Contact Info) Description 01/17/2012 3:20 PM CDT [facility] in [address] [phone] Luis Walsh [address] [place] [address] Interface, MD [place] Social History Tobacco Use [...] 3:30 PM CDT [facility] [address] [place] [address] Jacque Alexis APRN [facility] [address] [place] [address] documented as of this encounter Visit Diagnoses Not on filedocumented in this encounter Care Teams Horse Shoer Relationship Specialty Start Date End Date Timmy Perez MD PCP - Obstetrics/Gynecology 03/02/0807/18 documented as of this encounter
--- OUTSIDE RECORDS SUMMARY | 2024-01-13 21:37 | XMS_ITS | Encounter Summary ---
Author Name Unknown Organization [place] Address [address] [place] [address] Care Team Providers Care Planting Material Unloader Name Role Phone Timmy Perez MD Unavailable Unavailable Yung Madrigal MD Unavailable Unavailable Frw, None Primary Care Provider Unavailabl e Winston Villatoro OD Unavailable [phone] Apple Sykes MD Primary Care Provider [phone] Westley Bates MD Unavailable [phone] Alessandra Cabrales APRN FUNERAL ARRANGER Primary Car e Provider Serum, Clara Garland MD Primary Care Provider Serum, Clara Garland MD Unavailable [phone] Serum, Clara Garland MD Unavailable [phone] Denise Woodson Ra, APRN FUNERAL ARRANGER Unavailable [phone] Denise Woodson Ra, APRN FUNERAL ARRANGER Primary Care Provid er Encounter Details Date Type Department Care Team (Late st Contact Info) Description 01/31/2006 [facility] [place] EXECUTIVE PRODUCER PROMOS [address] [place] [address] Timmy Perez MD Social History Tobacco Use [...] PM CDT Office Visit [facility] [address] [place] [address] Jacque Alexis APRN FUNERAL ARRANGER [address] [place] [address] documented as of this encounter Visit Diagnoses Not on filedocumented in this encounter Care Teams Planting Material Unloader Relationship Specialty Start Date End Date Timmy Perez MD PCP - Obstetrics/Gynecology 03/02/08 08/07/15 Yung Madrigal MD RETIRED PCP - Orthopaedics Orthopedics 08/26/12 Frw, None PCP - General Family Practice 08/26/12 05/03/13 Winston Villatoro OD [facility] [place] [address] [place] [address] PCP - Ophthalmology Ophthalmology 02/11/13 Apple Sykes MD [facility] [place] [address] [place] [address] PCP - General Family Practice 05/04/13 10/25/16 Westley Bates MD XXX RETIRED [place] [address] [place] [address] PCP - ENT Otolaryngology 05/14/13 07/28/18 Alessandra Cabrales APRN FUNERAL ARRANGER [address] [facility] [place] [address] PCP - General Nurse Practitioner 10/26/16 02/06/17 Clara Cornell MD [address] [facility] [place] [address] PCP - General Internal Medicine 02/07/17 09/20/20 Clara Cornell MD [address] [place] [address] PCP - Assigned PCP 01/17/17 11/18/18 Denise Woodson Ra, APRN FUNERAL ARRANGER [address] [place] [address] PCP - General Family Practice 09/21/20 Clara Cornell MD [address] [place] [address] Assigned PCP 01/17/17 07/16/20 Denise Woodson Ra, APRN FUNERAL ARRANGER [address] [place] [address] Assigned PCP 07/17/20 documented as of this encounter
--- OUTSIDE RECORDS SUMMARY | 2024-01-13 21:37 | XMS_ITS | Encounter Summary ---
Author Name Unknown Organization [place] Address [address] [place] [address] Care Team Providers Care Family Nurse Name Role Phone Timmy Perez MD Unavailable Unavailable Yung Madrigal MD Unavailable Unavailable Winston Villatoro OD Unavailable [phone] Apple Sykes MD Primary Care Provider [phone] Westley Bates MD Unavailable [phone] Alessandra Cabrales APRN SHOE REPAIRER HELPER Primary Car e Provider Serum, Clara Garland MD Primary Care Provider Serum, Calra Garland MD Unavailable [phone] Serum, Clara Garland MD Unavailable [phone] Denise Woodson Ra, APRN SHOE REPAIRER HELPER Unavailable + [phone] Denise Woodson Ra, APRN, CNP Primary Care Provid er Encounter Details Date Type Department Care Team (Late st Contact Info) Description 05/06/2013 MyC Medical Advice [facility] in [facility] [address] [place] [address] Apple Sykes MD [address] [place] [address] Social History Tobacco Use Types Packs/Day Years [...] Description 01/15/2024 3:30 PM CDT Office Visit [facility] [address] [place] [address] Jacque Alexis APRN SHOE REPAIRER HELPER [address] [place] [address] documented as of this encounter Visit Diagnoses Not on filedocumented in this encounter Care Teams Family Nurse Relationship Specialty Start Date End Date Timmy Perez MD PCP - Obstetrics/Gynecology 03/02/08 08/07/15 Yung Madrigal MD RETIRED PCP - Orthopaedics Orthopedics 08/26/12 Winston Villatoro, OD [facility] [place] [address] [place] [address] PCP - Ophthalmology Ophthalmology 02/11/13 Apple Sykes MD [facility] [place] [address] [place] [address] PCP - General Family Practice 05/04/13 10/25/16 Westley Bates MD XXX RETIRED XXX [address] [place] [address] PCP - ENT Otolaryngology 05/14/13 07/28/18 Alessandra Cabrales APRN SHOE REPAIRER HELPER [address] [facility] [place] [address] PCP - General Nurse Practitioner 10/26/16 02/06/17 Clara Cornell MD [address] [facility] [place] [address] PCP - General Internal Medicine 02/07/17 09/20/20 Clara Cornell MD [address] [place] [address] PCP - Assigned PCP 01/17/17 11/18/18 Denise Woodson Ra, APRN SHOE REPAIRER HELPER [address] [place] [address] PCP - General Family Practice 09/21/20 Clara Cornell MD [address] [place] [address] Assigned PCP 01/17/17 07/16/20 Denise Woodson Ra, APRN SHOE REPAIRER HELPER [address] [place] [address] Assigned PCP 07/17/20 documented as of this encounter
--- OUTSIDE RECORDS SUMMARY | 2024-01-13 21:37 | XMS_ITS | Encounter Summary ---
Author Name Unknown Organization [place] Address [address] [place] [address] Care Team Providers Care Assignment Clerk Name Role Phone Timmy Perez MD Unavailable Unavailable Yung Madrigal MD Unavailable Unavailable Winston Villatoro OD Unavailable [phone] Apple Sykes MD Primary Care Provider [phone] Westley Bates MD Unavailable [phone] Alessandra Cabrales APRN COMPARATOR OPERATOR Primary Car e Provider Serum, Clara Garland MD Primary Care Provider Serum, Clara Garland MD Unavailable Serum, Clara Garland MD Unavailable Denise Woodson Ra, APRN COMPARATOR OPERATOR Unavailable [phone] Denise Woodson Ra, APRN, CNP Primary Care Provid er Reason for Visit * Reason Onset Date Comments MyChart Communication 05/30/2013 Encounter Details Date Type Department Care Team (Latest Contact Info) Description 05/30/2013 MyC Medical Advice [facility] [place] [facility] [address] [place] [address] Apple Sykes MD [address] [place] [address] MyChart Communication Social History Tobacco Use Types [...] Description 01/15/2024 3:30 PM CDT Office Visit [facility] [address] [place] [address] Jacque Alexis APRN COMPARATOR OPERATOR [address] [place] [address] documented as of this encounter Visit Diagnoses Not on filedocumented in this encounter Care Teams Assignment Clerk Relationship Specialty Start Date End Date Timmy Perez MD PCP - Obstetrics/Gynecology 03/02/08 08/07/15 Yung Madrigal MD RETIRED PCP - Orthopaedics Orthopedics 08/26/12 Winston Villatoro OD [facility] [place] [address] [place] [address] PCP - Ophthalmology Ophthalmology 02/11/13 Apple Sykes MD [facility] [place] [address] [place] [address] PCP - General Family Practice 05/04/13 10/25/16 Westley Bates MD XXX RETIRED [place] [address] [place] [address] PCP - ENT Otolaryngology 05/14/13 07/28/18 Alessandra Cabrales APRN COMPARATOR OPERATOR [address] [place] [address] [place] [address] PCP - General Nurse Practitioner 10/26/16 02/06/17 Clara Cornell MD [address] [facility] [place] [address] PCP - General Internal Medicine 02/07/17 09/20/20 Clara Cornell MD [address] [place] [address] PCP - Assigned PCP 01/17/17 11/18/18 Denise Woodson Ra, APRN COMPARATOR OPERATOR [address] [place] [address] PCP - General Family Practice 09/21/20 Clara Cornell MD [address] [facility] [place] [address] Assigned PCP 01/17/17 07/16/20 Denise Woodson Ra, APRN COMPARATOR OPERATOR [address] [place] [address] Assigned PCP 07/17/20 documented as of this encounter
--- OUTSIDE RECORDS SUMMARY | 2024-01-13 21:37 | XMS_ITS | Encounter Summary ---
Author Name Unknown Organization [place] Address [address] [place] [address]. [place] [address] Care Team Providers Care Balloon Pilot Name Role Phone Yung Madrigal MD Unavailable Unavailable Winston Villatoro OD Unavailable [phone] Denise Woodson Ra, APRN PAPER BAG MACHINE OPERATOR Unavailable + [phone] Denise Woodson Ra, APRN PAPER BAG MACHINE OPERATOR Primary Care Provid er Reason for Visit * Reason Comments Medication Refill Encounter Details Date Type Department Care Team (Late st Contact Info) Description 06/11/[address] [place] [address] Denise Woodson Ra, APRN PAPER BAG MACHINE OPERATOR [address] [place], [place] [id number] Medication Refill Social History Tobacco Use Types [...] PM CDT Office Visit [facility] [address] [place] [address] Jacque Alexis APRN PAPER BAG MACHINE OPERATOR [address] [place] [address] documented as of this encounter Visit Diagnoses Diagnosis Insomnia, unspecified type documented in this encounter Additional Health Concerns Assessment Noted Time PHQ-9 Depression Total Score: 0 01/05/20 21 9:31 AM CDT documented as of this encounter Care Teams Balloon Pilot Relationship Specialty Start Date End Date Yung Madrigal MD RETIRED PCP - Orthopaedics Orthopedics 08/26/[address] [facility] [place] [address] [facility] [address] [place] [address] PCP - Ophthalmology Ophthalmology 02/11/13 Denise Woodson Ra, APRN PAPER BAG MACHINE OPERATOR [address] [place] [address] PCP - General Family Practice 09/21/20 Denise Woodson Ra, APRN PAPER BAG MACHINE OPERATOR [address] [place] [id number] Assigned PCP 07/17/20 documented as of this encounter
--- OUTSIDE RECORDS SUMMARY | 2024-01-13 21:37 | XMS_ITS | Encounter Summary ---
Author Name Unknown Organization [place] Address [address] [place] [address] Care Team Providers Care Commissioning Editor Name Role Phone Timmy Perez MD Unavailable Unavailable Yung Madrigal MD Unavailable Unavailable Winston Villatoro OD Unavailable [phone] Apple Sykes MD Primary Care Provider [phone] Westley Bates MD Unavailable [phone] Alessandra Cabrales APRN PARTITION ASSEMBLY MACHINE OPERATOR Primary Car e Provider Serum, Clara Garland MD Primary Care Provider Serum, Clara Garland MD Unavailable [phone] Serum, Clara Garland MD Unavailable [phone] Denise Woodsno Ra, APRN PARTITION ASSEMBLY MACHINE OPERATOR Unavailable + [phone] Denise Woodson Ra, APRN, CNP Primary Care Provid er Encounter Details Date Type Department Care Team (Late st Contact Info) Description 05/26/2013 MyC Medical Advice [facility] [place] Orthopedics [address] [place] [phone] Yung Madrigal MD RETIRED Social History Tobacco [...] Description 01/15/2024 3:30 PM CDT Office Visit [facility] [address] [place] [address] Jacque Alexis APRN PARTITION ASSEMBLY MACHINE OPERATOR [address] [place] [address] documented as of this encounter Visit Diagnoses Not on filedocumented in this encounter Care Teams Commissioning Editor Relationship Specialty Start Date End Date Timmy Perez MD PCP - Obstetrics/Gynecology 03/02/08 08/07/15 Yung Madrigal MD RETIRED PCP - Orthopaedics Orthopedics 08/26/12 Winston Villatoro OD [facility] [place] [address] [place] [address] PCP - Ophthalmology Ophthalmology 02/11/13 Apple Sykes MD [facility] [place] [address] [place] [address] PCP - General Family Practice 05/04/13 10/25/16 Westley Bates MD XXX RETIRED [place] [address] [place] [address] PCP - ENT Otolaryngology 05/14/13 07/28/18 Alessandra Cabrales APRN PARTITION ASSEMBLY MACHINE OPERATOR [address] [facility] [place] [address] PCP - General Nurse Practitioner 10/26/16 02/06/17 Clara Cornell MD [address] [facility] [place] [address] PCP - General Internal Medicine 02/07/17 09/20/20 Clara Cornell MD [address] [place] [address] PCP - Assigned PCP 01/17/17 11/18/18 Denise Woodson Ra, APRN PARTITION ASSEMBLY MACHINE OPERATOR [address] [place] [address] PCP - General Family Practice 09/21/20 Clara Cornell MD [address] [place] [address] Assigned PCP 01/17/17 07/16/20 Denise Woodson Ra, APRN PARTITION ASSEMBLY MACHINE OPERATOR [address] [place] [address] Assigned PCP 07/17/20 documented as of this encounter
--- OUTSIDE RECORDS SUMMARY | 2024-01-13 21:37 | XMS_ITS | Encounter Summary ---
Author Name Unknown Organization [place] Address [address] [place] [address]. [place] [address] Care Team Providers Care Welder/Installer Name Role Phone Yung Madrigal MD Unavailable Unavailable Winston Villatoro OD Unavailable Denise Woodson Ra, APRN ELECTRICAL APPLIANCE PREPARER Unavailable Denise Woodson Ra, APRN ELECTRICAL APPLIANCE PREPARER Primary Care Provid er Reason for Visit * Reason Onset Date Comments MyChart Communication 06/08/2021 Abdominal pain Encounter Details Date Type Department Care Team (Late Contact Info) Description 06/08/2021 MyC Medical Advice [facility] [place] [address] [place] [address] Denise Woodson Ra, APRN ELECTRICAL APPLIANCE PREPARER [address] [place] [address] MyChart Communication (Abdominal pain) Social [...] Upcoming Encounters Date Type Department Care Team ([facility] Contact Info) Description 01/15/2024 3:30 PM CDT Office Visit [facility] [place] [address] [place] [address] Jacque Alexis APRN ELECTRICAL APPLIANCE PREPARER [address] [place] [address] documented as of this encounter Visit Diagnoses Not on filedocumented in this encounter Additional Health Concerns Assessment Noted Time PHQ-9 Depression Total Score: 0 01/05/20 21 9:31 AM CDT documented as of this encounter Care Teams Welder/Installer Relationship Specialty Start Date End Date Yung Madrigal MD RETIRED PCP - Orthopaedics Orthopedics 08/26/12 Winston Villatoro OD [facility] [place] [address] [facility] [address] [place] [address] PCP - Ophthalmology Ophthalmology 02/11/13 Denise Woodson Ra, APRN ELECTRICAL APPLIANCE PREPARER [address] [place] [address] PCP - General Family Practice 09/21/20 Denise Woodson Ra, APRN ELECTRICAL APPLIANCE PREPARER [address] [place] [address] Assigned PCP 07/17/20 documented as of this encounter
[2024-01-13 21:39] LABS: Slide Review Reflex No
[2024-01-13 21:47] LABS: Chloride* 104 mmol/L (96-114); Sodium* 137 mmol/L (135-149)
[2024-01-13 21:48] LABS: Potassium* 3.8 mmol/L (3.6-5.1)
[2024-01-13 21:50] LABS: Anion Gap 6 mEq/L (7-15); Carbon Dioxide* 27 mmol/L (20-32); Creatinine* 0.7 mg/dL (0.5-1.5); Est. Creatinine Clearance* 100.22; Estimated Glomerular Filt Rate 107 ml/min
[2024-01-13 21:51] LABS: Blood Urea Nitrogen* 21 mg/dL (5-24); Calcium* 9.7 mg/dL (8.4-10.6); Glucose* 101 mg/dL (60-115)
[2024-01-13 23:38] LABS: Troponin I* < 0.01 ng/mL (0.01-0.04)
[2024-01-14] VITALS (9 sets, daily range): BP systolic 110–162; BP diastolic 66–90; PULSE 62–97; RESP 15–18; TEMP 36.1–36.5; O2SAT 94–99; BMI 31.2
--- NOTE | 2024-01-14 03:27 | CT_ITS ---
Patient: CHRISTOPHER TY Facility:?[facility] Patient ID:?[id number] Site Patient ID:?[id number]. Site :?[id number] Study:?CT-Head W/O-01/14/2024 3:49:13 AM Ordering Physician:DEVANG Final Report: INDICATION: Seizure. TECHNIQUE: CT head without contrast. COMPARISON: MRI brain 01/13/2024. FINDINGS: CSF spaces: Within normal limits for age. Brain parenchyma: Known scattered acute infarcts better seen on prior MRI brain. The pollack-white differentiation is otherwise maintained. No sign of mass, hemorrhage, or midline shift. Skull base and calvarium: The visualized paranasal sinuses and mastoid air cells demonstrate no acute or significant findings. The visualized orbits are grossly unremarkable. No skull fractures. IMPRESSION: 1. No acute intracranial hemorrhage or mass effect. 2. Known scattered acute infarcts better seen on prior MRI brain. Please note that all CT scans at this facility use dose modulation, iterative reconstruction, and/or weight-based dosing when appropriate to reduce radiation dose to as low as reasonably achievable. Dictated by Jose Anders MD @ 01/14/2024 3:54:25 AM Signed by:?Jose Anders MD @01/14/2024 3:54:25 AM (Electronic Signature)
--- NOTE | 2024-01-14 03:43 | W.PM.THH&P_ITS ---
Telehealth- H&P: HPI History of Present Illness Date Seen: 01/14/24 Chief complaint: R side numb, dizzy Narrative: Alcon Zamora is seen as an Interactive Telehealth visit. Alcon Zamora is a 48 year old male who is Seen in her hospital room and [place]. She is seen with the assistance of nursing staff. She is admitted through the emergency room. She has a past medical history of Erler's Danlos syndrome. She states over the last couple months she started developing her heartbeat in her ear. Ultimately she had a left-sided temporal headache which led to a CT scan which was abnormal. Ultimately she was sent down to [facility] to look for a dural aVF. She underwent a cerebral angiogram at [place] on 01/09/2024. She states when she got back to her room she noted weakness in her arm and was incoordinated. She went home over the weekend and return to work today. She was not able to use the mouse correctly had a difficult time working. With these findings she called Dr. Gutierrez who did the procedure and he ordered an MRI of the head. the MRI came back showing ischemic infarcts in the frontal lobes, parietal lobes, left supramarginal gyrus. She was told to take a 81 mg aspirin. Patient went home and then felt like she was having moving symptoms including increasing leg dysfunction. She came into the emergency room to be evaluated. and now seen in her hospital room. She states her symptoms seem to be staying about the same. After finishing up the full exam and having a discussion with her about embolic strokes and this being likely related to the procedure an echocardiogram in the morning. She then started to complain of her teeth being numb. She then started to become pale and then started complaining of chest pain. A stat EKG was ordered which showed normal sinus rhythm no ST elevations or depressions. As this was being done a stat glucose was done as she became less responsive this came back at normal. She started to develop twitching in her arm and leg which progressed to a full seizure. This was treated with 3 mg of IV Ativan. Keppra was ordered to bedside 2 g. Patient's seizure stopped she was awake able to answer questions postprocedure. Dr. Molina of stroke neurology was again consulted. She is recommending continuing the Keppra. Loading dose 2 g was given. She will be started on 750 mg daily of Keppra. Dr. Molina did not feel that there would be any benefit for transferring her to a higher level of care as he would continue doing what we are doing. her chest pain did resolve. Review of Systems Narrative: A complete review of systems was performed positive pertinent and negatives in the history of present illness. [facility] Medical History Asthma ?J45.909 - Unspecified asthma, uncomplicated (ICD-10) History of blood transfusion (1994) ?Z92.89 - Personal history of other medical treatment (ICD-10) History of vitamin D deficiency ?Z86.39 - Personal history of other endocrine, nutritional and metabolic disease (ICD-10) Anxiety and depression ?F41.9 - Anxiety disorder, unspecified (ICD-10) ?F32.A - Depression, unspecified (ICD-10) Fibromyalgia ?M79.7 - Fibromyalgia (ICD-10) Mild persistent asthma ?J45.30 - Mild persistent asthma, uncomplicated (ICD-10) H/O bronchopulmonary dysplasia ?Z87.09 - Personal history of other diseases of the respiratory system (ICD- 10) Stage 1 chronic kidney disease (11/16/20) ?N18.1 - Chronic kidney disease, stage 1 (ICD-10) Simple renal cyst (10/2020) ?N28.1 - Cyst of kidney, acquired (ICD-10) 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, unspecified (ICD-10) Asthma ?J45.909 - Unspecified asthma, uncomplicated (ICD-10) Surgical History History of laparoscopy ?Z98.890 - Other specified postprocedural states (ICD-10) S/P dilation and curettage (1994) ?Z98.890 - Other specified postprocedural states (ICD-10) H/O tubal ligation ?Z98.51 - Tubal ligation status (ICD-10) Status post excision of lipoma (2011) ?Z98.890 - Other specified postprocedural states (ICD-10) ?Z86.018 - Personal history of other benign neoplasm (ICD-10) History of medial meniscus repair of left knee (08/04/13) ?Z98.890 - Other specified postprocedural states (ICD-10) History of laparoscopic cholecystectomy (09/29/20) ?Z90.49 - Acquired absence of other specified parts of digestive tract (ICD- 10) History of hysterectomy for benign disease (2005) ?Z90.710 - Acquired absence of both cervix and uterus (ICD-10) History of catheter-based closure of atrial septal defect (06/2006) ?Z87.74 - Personal history of (corrected) congenital malformations of heart and circulatory system (ICD-10) Family History Maternal Grandmother Stroke Paternal Grandfather Diabetes Daughter Depression Social History Narrative: She recently moved to [place]. 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 She has a college education She exercises 5 days a week with walking in treadmill 2M She does not smoke She does not drink alcohol or use recreational drugs What is your current living situation?: I presently have a place to live Problems where you live: no known problems Problems where you live details: na In the past 12 months, utilities in danger of being shut off: no In past 12 months, lack of transportation kept you from medical appts, meetings, work, or getting things needed for daily living: no In the past 12 mos, have been you worried that your food would run out before you had money to buy more?: never true In the past 12 mos, the food you bought just didn't last and you didn't have money to buy more?: never true Highest level of school completed/degree received: Associate degree: occupational, technical, vocational program Smoking Status: Never smoker Do you use any of these nicotine containing products: None Second hand tobacco smoke exposure: No How often do you have a drink containing alcohol: never How often do you have six or more drinks on one occasion: Never AUDIT-C Alcohol total score: 0 Non-prescribed substance use: denies use Caffeine: Yes How often does anyone, including family, friends and others, physically hurt you : never How often does anyone, including family, friends and others, insult or talk down to you: never How often does anyone, including family, friends and others, threaten you with harm: never How often does anyone, including family, friends and others, scream or curse at you: never Little interest or pleasure in doing things: not at all Feeling down, depressed, or hopeless: not at all Are you using contraception or practicing any form of control: Yes (hysterectomy) service: No Meds Home Medications and Allergies Home Medications Medication Instructions Recorded Confirmed Type fluticasone furoate 200 1 inh inhalation Q24H 07/03/22 01/13/24 History mcg-vilanterol 25 mcg/dose inhalation powder (Breo Ellipta) albuterol sulfate 90 mcg/actuation 2 puff inhalation Q6H PRN 08/01/22 01/13/24 History aerosol inhaler magnesium 250 mg tablet 250 mg PO QDAY 08/02/22 01/13/24 History trazodone 100 mg tablet 100 mg PO QDAY sleep 08/02/22 01/13/24 History cetirizine 10 mg tablet (Zyrtec) 10 mg PO QDAY PRN 10/08/23 01/13/24 History hydroxyzine HCl 25 mg tablet 25 mg PO BID PRN 12/31/23 01/13/24 History Allergies Allergy/AdvReac Type Severity Reaction Status Date / Time bupropion Allergy Intermediate Diarrhea Verified 01/13/24 22:06 codeine Allergy Intermediate epigastric Verified 01/13/24 22:06 pain erythromycin base Allergy Intermediate stomach Verified 01/13/24 22:06 upset, diarrhea Exam Narrative Exam Narrative: Physical Exam GENERAL: ?vital signs reviewed, well developed and nourished, in no distress HEENT: pupils are equal round and reactive to light, extraocular movements are grossly within normal limits and oral mucosa is moist. NECK: Supple without lymphadenopathy or thyromegaly according to nursing staff examination observation HEART: Regular rate and rhythm without any rubs, murmurs, or gallops. LUNGS: Clear to auscultation bilaterally with good air movement throughout ABDOMEN: Observation from nurse assisted exam, abdomen appears soft, nontender, and nondistended with Positive bowel sounds noted. EXTREMITIES: patient alert awake cranial nerves II through XII grossly intact, right upper extremity weakness compared to the left, right lower extremity weakness compared to the left . SKIN:? Observed warm and dry with color normal Const Vital Signs, click to edit/add: Vital Signs - 24 hr 01/13/24 20:51 01/13/24 21:17 01/13/24 21:19 Temperature 98.4 F Pulse Rate 71 Pulse Rate [Left Pulse Oximeter] Pulse Rate [Pulse Oximeter] 85 Respiratory Rate 20 18 Blood Pressure 134/97 H Blood Pressure [Left Arm] Blood Pressure [Right Upper Arm] 189/108 H Pulse Oximetry 96 96 95 Oxygen Delivery Method Room Air Room Air 01/13/24 21:20 01/13/24 21:30 01/13/24 21:35 Temperature Pulse Rate 71 76 68 Pulse Rate [Left Pulse Oximeter] Pulse Rate [Pulse Oximeter] Respiratory Rate Blood Pressure Blood Pressure [Left Arm] Blood Pressure [Right Upper Arm] Pulse Oximetry 96 95 95 Oxygen Delivery Method 01/13/24 21:59 01/13/24 22:00 01/13/24 22:04 Temperature Pulse Rate 70 69 62 Pulse Rate [Left Pulse Oximeter] Pulse Rate [Pulse Oximeter] Respiratory Rate Blood Pressure Blood Pressure [Left Arm] Blood Pressure [Right Upper Arm] Pulse Oximetry 95 94 94 Oxygen Delivery Method 01/13/24 22:15 01/13/24 22:30 01/13/24 22:45 Temperature Pulse Rate 65 72 65 Pulse Rate [Left Pulse Oximeter] Pulse Rate [Pulse Oximeter] Respiratory Rate Blood Pressure Blood Pressure [Left Arm] Blood Pressure [Right Upper Arm] Pulse Oximetry 94 95 95 Oxygen Delivery Method 01/13/24 23:21 01/13/24 23:30 01/13/24 23:34 Temperature Pulse Rate 59 L 61 Pulse Rate [Left Pulse Oximeter] Pulse Rate [Pulse Oximeter] 68 Respiratory Rate 16 Blood Pressure Blood Pressure [Left Arm] Blood Pressure [Right Upper Arm] 155/101 H Pulse Oximetry 96 97 96 Oxygen Delivery Method Room Air 01/13/24 23:35 01/13/24 23:45 01/14/24 00:00 Temperature Pulse Rate 66 69 63 Pulse Rate [Left Pulse Oximeter] Pulse Rate [Pulse Oximeter] Respiratory Rate 18 Blood Pressure 155/101 H Blood Pressure [Left Arm] Blood Pressure [Right Upper Arm] Pulse Oximetry 96 97 96 Oxygen Delivery Method Room Air 01/14/24 00:15 01/14/24 01:42 01/14/24 01:42 Temperature 97.7 F Pulse Rate 62 Pulse Rate [Left Pulse Oximeter] 97 Pulse Rate [Pulse Oximeter] Respiratory Rate 18 18 Blood Pressure Blood Pressure [Left Arm] 162/89 H Blood Pressure [Right Upper Arm] Pulse Oximetry 94 97 97 Oxygen Delivery Method Room Air Room Air Hospitalist - H&P: Result Labs Labs: Short CBC 01/13/24 Range/Units 21:28 WBC 13.56 H (4.50-11.00) K/uL Hgb 15.7 (12.0-16.0) gm/dL Hct 47.0 (33.0-51.0) % Plt Count 269 (140-440) K/uL BMP 01/13/24 21:28 Sodium 137 Potassium 3.8 Chloride 104 Carbon Dioxide 27 BUN 21 Creatinine 0.7 Glucose 101 Calcium 9.7 Cardiac Enzymes 01/13/24 Range/Units 21:28 Troponin I < 0.01 L (0.01-0.04) ng/mL MRI head Findings: Numerous scattered foci of diffusion restriction in the left greater than right frontal cortex, bilateral centrum semiovale, left supra marginal gyrus compatible with acute ischemic infarcts. Infarcts involve the left precentral and postcentral gyrus. No pathologic susceptible artifacts. No midline shift. No hydrocephalus. No acute intracranial hemorrhage. The pituitary gland, optic chiasm, pineal gland and cerebellar tonsils are unremarkable. Calvarial bone marrow signal is within normal limits. Mild mucosal thickening in the left posterior ethmoid air cells. The orbits are unremarkable. Impression: 1. 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 2. No mass effect or midline shift. No hydrocephalus. No acute intracranial hemorrhage. ECG Interpretation: twelve-lead EKG was personally reviewed showed normal sinus rhythm less than 100 bpm normal axis no ST elevations or depressions per my interpretation Assessment and Plan Assessment and plan (1) Ischemic cerebrovascular accident (CVA): Status: Acute (2) Seizure: Status: Acute (3) History of cerebral angiography: Status: Acute (4) Headache: Status: Acute (5) Lizy-Danlos syndrome: Status: Chronic Plan ischemic cerebrovascular accident?this appears to be secondary to angiogram. Appears to be bilateral in nature. Seems unlikely that patient would have another focus of a CVA occurring at the same time she is having a cerebral angiogram. At this point we will keep her on aspirin 325 mg daily per stroke neurology's recommendations consult in the morning for stroke neurology. For completeness we will check an echocardiogram. Will watch her on monitor over the evening. Patient clearly has right-sided weakness compared to her left. Will have her work with physical, occupational and speech therapy. Seizure?patient clearly had a seizure which was witnessed by myself. Seizure was treated with 3 mg Ativan. Loading dose 2 g of Keppra. Then 750 mg of Keppra twice daily. Patient did lose bladder control. Will have this further evaluated by tele stroke neurology in the morning. This was not ordered but stroke consult can be ordered in the morning. Seizure was discussed with stroke neurology. At this juncture appears to be stable we will send for a CT scan of the head to rule out hemorrhagic conversion of her previous strokes. History of cerebral angiography?patient's ischemic event seems to be timed around there. Sequence of events unclear Headache?treated with Tylenol. Will try to avoid more sedative type medications secondary to continuing to need neurologic review. 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 Encouraged her to seek out a specialist at some point for any specialized care for this. DVT prophylaxis will use subcutaneous Lovenox. CODE STATUS is presumably full. Patient currently Mildly postictal dose of Ativan. This can be readdressed in the morning when she is more awake. Reese Yost DO, Pharm. D. Telehealth: Statement Statement Telehealth Visit: Today's History and Physical is provided via interactive telehealth by Reese Yost DO.? Patient is located at [facility].? Provider is located at [facility].? Nursing staff assisted with the patient's exam. The visit being done today meets criteria for a telehealth visit and the patient or patient?s parent/guardian is aware the visit is a telehealth visit. Camera Start Time: 02:03 Camera End Time: 03:23
[2024-01-14] MEDS: LORazepam 2 MG/ML inj 3 MG IVP (03:57)
[2024-01-14 06:02] LABS: Basophils Percent Auto 0.3 % (0.0-3.0); Eosinophils Percent Auto 2.5 % (0.0-7.0); Hemoglobin* 14.6 gm/dL (12.0-16.0); Immature Granulocytes Pct Auto 0.5 %; Lymphocytes Percent Auto 31.9 % (20-44); Mean Corpuscular HGB Conc 33 gm/dL (32-36); Mean Corpuscular Hemoglobin 30 pg (26-34); Mean Corpuscular Volume 92 fL (80-100); Monocytes Percent Auto 7.7 % (0.0-11.0); Neutrophils Percent Auto 57.1 % (42.0-72.0); Platelet Count* 239 K/uL (140-440); RDW Coefficient of Variation % 12.1 % (11.5-15.5); Red Blood Count 4.81 m/uL (4.00-5.20); White Blood Count* 11.09 K/uL (4.50-11.00)
[2024-01-14 06:11] LABS: Slide Review Reflex No
[2024-01-14 06:16] LABS: Chloride* 102 mmol/L (96-114); Sodium* 137 mmol/L (135-149)
[2024-01-14 06:19] LABS: Anion Gap 6 mEq/L (7-15); Blood Urea Nitrogen* 19 mg/dL (5-24); Carbon Dioxide* 29 mmol/L (20-32); Creatinine* 0.7 mg/dL (0.5-1.5); Est. Creatinine Clearance* 100.22; Estimated Glomerular Filt Rate 107 ml/min; Glucose* 91 mg/dL (60-115)
[2024-01-14 06:20] LABS: Calcium* 8.3 mg/dL (8.4-10.6)
--- NOTE | 2024-01-14 06:29 | PC.NURSE ---
Patient admitted to floor at 0115 from emergency department with right sided weakness. Patient alert and oriented x 4. Patient reports a headache at the base of her skull and residual back pain that she states was from ?the bed in the ER.? Per patient she continues to have numbness and weakness to right hand and some numbness in right lower extremity. Patient also reports feeling numb in bilateral cheeks, smile is equal with no facial drooping noted. Unsteady gait, patient requiring min assist x 1 with transfers and ambulation. While completing Tele-health admission with Dr. Yost patient complained of jaw and facial numbness, patient was conscious and vitals obtained at 0245 BP 173/116 pulse 88 R 20 O2 100% on room air, patient then became non responsive with shaking of upper and lower extremities, incontinent of small amount of urine at time of seizure like activity. MD ordered 3mg ativan IV stat, medication administered at 0255, at 0259 BP 86/53, patient becoming responisve to verbal stimuli and able to answer writers questions. MD ordered 500ml NS bolus and start loading dose of 2gm Keppra. Medication received from [place] sup and?IV loading dose started. 0308 BP 155/99 P 71, patient drowsy but oriented. New orders from for STAT CT without contrast and provider contacting tenant relations coordinator for Tele Neurology. 0315 vitals 153/82 P78 O2 98% on RA, patient continues to be responsive but drowsy. Patient down to radiology for CT scan and back to floor at 0350. patient placed back on continuous pulse ox, O2 sats decreased to 88%, oxygen applied at 1L via Nasal cannula. Vitals obtained at 0355 127/82 P69 R16 O2 94% on 1L. Patient sleepy but responsive to verbal stimuli. Seizure precautions in place. ?
[2024-01-14 06:32] LABS: Troponin I* < 0.01 ng/mL (0.01-0.04)
[2024-01-14 06:49] LABS: Troponin I* < 0.01 ng/mL (0.01-0.04)
[2024-01-14 08:41] LABS: Cholesterol* 190 mg/dL (90-199); HDL Cholesterol* 56 mg/dL (>=50); LDL Cholesterol Calculated 102 mg/dL (<100); Triglycerides* 161 mg/dL (40-149)
[2024-01-14 08:43] LABS: Hemoglobin A1C* 5.3 % (0-5.6)
[2024-01-14] MEDS: ASPIRIN EC 325 MG TABLET PO (08:53)
[2024-01-14] MEDS: SODIUM CHLORIDE 0.9 % (FLUSH) 10 ML SYRINGE 5 ML IVF ×2 (08:54→20:36)
[2024-01-14] MEDS: 0.9 % SODIUM CHLORIDE 1000 ml 1,000 ML 125 ML IV ×2 (09:00→17:49)
[2024-01-14] MEDS: ONDANSETRON 2 MG/ML inj 4 MG IVP (09:00)
--- NOTE | 2024-01-14 09:36 | PM.IMPN1 ---
Progress Note: A&P Assessment and plan (1) Ischemic cerebrovascular accident (CVA): Problem details: - MRI on 01/13/24 with formal radiology read below - therapies following to help assist with disposition planning - Stroke Neurology following - A1C 5.3, LDL 102, Blood Pressure this morning is 120/80 - TTE with bubble study ordered for 01/13 1. 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 2. No mass effect or midline shift. No hydrocephalus. No acute intracranial hemorrhage. 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 During her admission, she had a focal seizure, was loaded with Keppra and given Ativan. Stroke Neurology was consulted and is following patient during stay. This morning, Alcon is quite tired, but otherwise has no formal concerns for hospitalist team. She was seen by Dr. Mantilla of Stroke Neurology via televisit this morning. Blood pressure was high upon admission, this morning is 120s/80s. A1C 5.3, LDL 102. Therapies will be seeing her today, and she will be having a TTE with bubble study. Exam Narrative: Exam Narrative: GEN: Awake but sleepy, sitting comfortably in bedside chair CV: RRR, No concerning murmurs R: LCTA bilaterally without concerning wheezing, air movement is adequate Ext: wwp, no concerning edema Skin: No concerning skin lesions or rashes on exposed skin Neuro: Formal exam deferred given recent Neurology tele-visit, mild RUE clumsiness is noted Psych: Appropriate Const: Vital Signs, click to edit/add: Vital Signs - 24 hr 01/13/24 20:51 01/13/24 21:17 01/13/24 21:19 Temperature 98.4 F Pulse Rate 71 Pulse Rate [Left P ulse Oximeter] Pulse Rate [Pulse Oximeter] 85 Respiratory Rate 20 18 Blood Pressure 134/97 H Blood Pressure [Le ft Arm] Blood Pressure [Ri ght Upper Arm] 189/108 H Pulse Oximetry 96 96 95 Oxygen Delivery Me thod Room Air Room Air 01/13/24 21:20 01/13/24 21:30 01/13/24 21:35 Temperature Pulse Rate 71 76 68 Pulse Rate [Left P ulse Oximeter] Pulse Rate [Pulse Oximeter] Respiratory Rate Blood Pressure Blood Pressure [Le ft Arm] Blood Pressure [Ri ght Upper Arm] Pulse Oximetry 96 95 95 Oxygen Delivery Me thod 01/13/24 21:59 01/13/24 22:00 01/13/24 22:04 Temperature Pulse Rate 70 69 62 Pulse Rate [Left P ulse Oximeter] Pulse Rate [Pulse Oximeter] Respiratory Rate Blood Pressure Blood Pressure [Le ft Arm] Blood Pressure [Ri ght Upper Arm] Pulse Oximetry 95 94 94 Oxygen Delivery Me thod 01/13/24 22:15 01/13/24 22:30 01/13/24 22:45 Temperature Pulse Rate 65 72 65 Pulse Rate [Left P ulse Oximeter] Pulse Rate [Pulse Oximeter] Respiratory Rate Blood Pressure Blood Pressure [Le ft Arm] Blood Pressure [Ri ght Upper Arm] Pulse Oximetry 94 95 95 Oxygen Delivery Me thod 01/13/24 23:21 01/13/24 23:30 01/13/24 23:34 Temperature Pulse Rate 59 L 61 Pulse Rate [Left P ulse Oximeter] Pulse Rate [Pulse Oximeter] 68 Respiratory Rate 16 Blood Pressure Blood Pressure [Le ft Arm] Blood Pressure [Ri ght Upper Arm] 155/101 H Pulse Oximetry 96 97 96 Oxygen Delivery Me thod Room Air 01/13/24 23:35 01/13/24 23:45 01/14/24 00:00 Temperature Pulse Rate 66 69 63 Pulse Rate [Left P ulse Oximeter] Pulse Rate [Pulse Oximeter] Respiratory Rate 18 Blood Pressure 155/101 H Blood Pressure [Le ft Arm] Blood Pressure [Ri ght Upper Arm] Pulse Oximetry 96 97 96 Oxygen Delivery Me thod Room Air 01/14/24 00:15 01/14/24 01:42 01/14/24 01:42 Temperature 97.7 F Pulse Rate 62 Pulse Rate [Left P ulse Oximeter] 97 Pulse Rate [Pulse Oximeter] Respiratory Rate 18 18 Blood Pressure Blood Pressure [Le ft Arm] 162/89 H Blood Pressure [Ri ght Upper Arm] Pulse Oximetry 94 97 97 Oxygen Delivery Me thod Room Air Room Air 01/14/24 03:29 01/14/24 07:00 01/14/24 07:00 Temperature Pulse Rate 71 72 Pulse Rate [Left P ulse Oximeter] 75 Pulse Rate [Pulse Oximeter] Respiratory Rate 18 Blood Pressure Blood Pressure [Le ft Arm] Blood Pressure [Ri ght Upper Arm] Pulse Oximetry Oxygen Delivery Me thod 01/14/24 07:00 Temperature 97.7 F Pulse Rate Pulse Rate [Left P ulse Oximeter] 75 Pulse Rate [Pulse Oximeter] Respiratory Rate 18 Blood Pressure Blood Pressure [Le ft Arm] 123/80 Blood Pressure [Ri ght Upper Arm] Pulse Oximetry 99 Oxygen Delivery [place]v thod Room Air Labs Labs: Laboratory Results - last 24 hr 01/13/24 01/13/24 01/13/24 21:28 23:10 23:44 WBC 13.56 H RBC 5.21 H Hgb 15.7 Hct 47.0 MCV 90 MCH 30 MCHC 33 RDW Coeff of [place] 12.1 Plt Count 269 Neut % (Auto) 61.9 Lymph % (Auto) 29.4 [place] % (Auto) 7.0 Eos % (Auto) 1.2 Baso % (Auto) 0.2 Neut # (Auto) 8.40 H Lymph # (Auto) 4.00 H [place] # (Auto) 0.90 Eos # (Auto) 0.20 Baso # (Auto) 0.00 Abs Immat Gran (auto) 0.00 Imm/Tot Granulo (auto) 0.3 Sodium 137 Potassium 3.8 Chloride 104 Carbon Dioxide 27 Anion Gap 6 L BUN 21 Creatinine 0.7 Estimated Creat Clear 100.22 Estimated GFR 107 Glucose 101 Hemoglobin A1c Calcium 9.7 Troponin I < 0.01 L Triglycerides Cholesterol LDL Cholesterol, Calc HDL Cholesterol Lab Acknowledgement Test Added POC Troponin I 0.00 L 01/14/24 01/14/24 01/14/24 05:50 05:50 08:20 WBC 11.09 H RBC 4.81 Hgb 14.6 Hct 44.0 MCV 92 MCH 30 MCHC 33 RDW Coeff of [place] 12.1 Plt Count 239 Neut % (Auto) 57.1 Lymph % (Auto) 31.9 [place] % (Auto) 7.7 Eos % (Auto) 2.5 Baso % (Auto) 0.3 Neut # (Auto) 6.30 Lymph # (Auto) 3.50 H [place] # (Auto) 0.90 Eos # (Auto) 0.30 Baso # (Auto) 0.00 Abs Immat Gran (auto) 0.10 Imm/Tot Granulo (auto) 0.5 Sodium 137 Potassium 4.0 Chloride 102 Carbon Dioxide 29 Anion Gap 6 L BUN 19 Creatinine 0.7 Estimated Creat Clear 100.22 Estimated GFR 107 Glucose 91 Hemoglobin A1c 5.3 Calcium 8.3 L Troponin I < 0.01 L < 0.01 L Triglycerides 161 H Cholesterol 190 LDL Cholesterol, Calc 102 H HDL Cholesterol 56 Lab Acknowledgement Test Added POC Troponin I
--- NOTE | 2024-01-14 12:12 | REH.OT ---
Orders received for OT eval and treat. Patient will be seen 01/15/24 as she has multiple tests today as well as needing rest. ok with this plan.
[2024-01-14] MEDS: ROSUVASTATIN CALCIUM 10 MG TABLET 20 MG PO (20:35)
[2024-01-14] MEDS: ENOXAPARIN 40 MG/0.4 ML INJ SUBCUT (20:36)
[2024-01-14] MEDS: levETIRAcetam 500 MG TABLET 750 MG PO (20:36)
[2024-01-15] VITALS (9 sets, daily range): BP systolic 117–154; BP diastolic 68–84; PULSE 66–83; RESP 16; TEMP 36.3–36.8; O2SAT 93–97
[2024-01-15] MEDS: 0.9 % SODIUM CHLORIDE 1000 ml 1,000 ML 125 ML IV ×2 (00:58→09:05)
[2024-01-15 06:34] LABS: Basophils Absolute Auto 0.03 K/uL (0.00-0.30); Basophils Percent Auto 0.3 % (0.0-3.0); Eosinophils Absolute Auto 0.37 K/uL (0.00-0.50); Eosinophils Percent Auto 3.8 % (0.0-7.0); Hematocrit 42.2 % (33.0-51.0); Immature Granulocytes Abs Auto 0.04 K/uL (0.00-0.30); Immature Granulocytes Pct Auto 0.4 %; Lymphocytes Absolute Auto 2.74 K/uL (0.90-2.90); Lymphocytes Percent Auto 28.4 % (20-44); Mean Corpuscular HGB Conc 33 gm/dL (32-36); Mean Corpuscular Hemoglobin 30 pg (26-34); Mean Corpuscular Volume 91 fL (80-100); Monocytes Percent Auto 6.3 % (0.0-11.0); Neutrophils Absolute Auto 5.85 K/uL (1.7-7.0); Neutrophils Percent Auto 60.8 % (42.0-72.0); Platelet Count* 231 K/uL (140-440); RDW Coefficient of Variation % 12.2 % (11.5-15.5); Red Blood Count 4.62 m/uL (4.00-5.20); Slide Review Reflex No; White Blood Count* 9.64 K/uL (4.50-11.00)
[2024-01-15 06:49] LABS: Chloride* 107 mmol/L (96-114); Potassium* 4.2 mmol/L (3.6-5.1); Sodium* 137 mmol/L (135-149)
[2024-01-15 06:52] LABS: Anion Gap 4 mEq/L (7-15); Blood Urea Nitrogen* 13 mg/dL (5-24); Carbon Dioxide* 26 mmol/L (20-32); Creatinine* 0.5 mg/dL (0.5-1.5); Est. Creatinine Clearance* 140.31; Estimated Glomerular Filt Rate 116 ml/min
[2024-01-15 06:53] LABS: Calcium* 8.3 mg/dL (8.4-10.6); Glucose* 86 mg/dL (60-115)
--- NOTE | 2024-01-15 07:04 | PC.NURSE ---
End of shift report [id number]: Alert and oriented x 4. Denies any pain this shift. Patient continues to have right sided weakness to upper and lower extremities, facial movement symmetrical but patient does report continued numb feeling to cheeks. Transfers with SBA with walker, dizziness reported with walking but patient feels she is less dizzy with ambulation than she was on admission. ? Difficulty sleeping reported tonight, patient takes trazodone QHS at home for past 20 years for insomnia, will discuss options with morning hospitalist. Utilized aromatherapy to aid in relaxation. Patient tearful this morning, feeling frustrated concerning neurologist who completed her procedure and feelings of invalidation and being brushed off. Shipyard Painter Apprentice validated feelings and allowed patient to voice feelings.
[2024-01-15] MEDS: ONDANSETRON 2 MG/ML inj 4 MG IVP (08:23)
[2024-01-15] MEDS: PSYLLIUM HUSK (WITH SUGAR) 12 GM PACKET PO (08:25)
[2024-01-15] MEDS: levETIRAcetam 500 MG TABLET 750 MG PO ×2 (08:25→20:28)
[2024-01-15] MEDS: hydrOXYzine pamoate 25 MG CAPSULE PO (08:26)
[2024-01-15] MEDS: ACETAMINOPHEN 325 MG TABLET PO (08:26)
[2024-01-15] MEDS: ASPIRIN EC 325 MG TABLET PO (08:26)
--- NOTE | 2024-01-15 10:31 | PM.IMPN1 ---
Progress Note: A&P Assessment and plan (1) Ischemic cerebrovascular accident (CVA): Problem details: - MRI on 01/13/24 with formal radiology read below - PT/OT consults - may need ongoing therapy following discharge - SHALE MINER eval shows safe functional swallow - continue to monitor - Stroke Neurology following - reeval 01/14 following TTE - A1C 5.3, LDL 102. Started on statin (likely not an atherosclerotic event) though not unreasonable - TTE with bubble study 01/14 - ASA 325mg daily, Lovenox VTE PPX 1. 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 2. No mass effect or midline shift. No hydrocephalus. No acute intracranial hemorrhage. 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 along with Ativan 3mg IV - continue Keppra 750mg BID - Ativan prn - seizure precautions Will need outpatient follow up with Neurology Status: Acute (3) Arteriovenous fistula: Problem details: - h/o left-sided pulsatile tinnitus and an enlarged left occipital artery by CTA - 01/09/24 catheter angiogram at [facility] shows left sigmoid dural arteriovenous fistula Status: Acute (4) Fibromuscular dysplasia: Problem details: - 01/09/2024 catheter angiogram at [facility] - aspirin therapy Status: Acute (5) Lizy-Danlos syndrome: Problem details: noted Status: Chronic Plan - therapies, TTE - Lovenox and ASA for ppx - Stroke Neurology following - Dispo pending therapy evaluations Time Spent With Patient Total time spent: Total time spent caring for the patient today was 45 minutes. This includes time spent for the visit reviewing the chart, time spent during the visit, time spent after the visit and documentation and planning in coordination of care. Subjective Date Seen: 01/15/24 Interval history: Patient is seen with spouse at bedside. Does not feel well this morning. Did not sleep well at all. Normally takes trazodone 100 mg nightly and reports even slight withdrawal symptoms when she misses a dose. Complains of mild headache, mild dizziness. Reports a numbness, unusual sensation of the right side of the face neck and upper extremity. Tells me this is kind of how she felt prior to onset of her 1st seizure. No report of facial droop, slurring. Report of coughing after taking her morning meds, no vomiting. No report of lower extremity symptoms. Has been mildly nauseous this morning. Just received her morning medications including Keppra and Zofran. Awaiting echocardiogram and repeat [facility] tele-neurology exam. Exam Narrative: Exam Narrative: PHYSICAL EXAM General: Appears anxious, otherwise NAD HEENT: Normocephalic, atraumatic, sclera white, EOMI, oral mucosa moist Cardiovascular: RRR, S1S2. No pitting edema Pulmonary: CTA bilaterally without rhonchi, rales, expiratory wheezes. No dyspnea on room air Neurological: Alert, quite anxious. Unable to squeeze ronan eyes tight but able to do all other facial tests without difficulty. RUE 3+/5, RLE 4/5. No left sided deficits Extremities: No gross joint deformity or swelling. AROMI. Neurovascularly intact Skin: Warm, dry. Const: Vital Signs, click to edit/add: Vital Signs - 24 hr 01/14/24 11:00 01/14/24 15:00 01/14/24 15:00 Temperature 97.6 F Pulse Rate 77 Pulse Rate [Left P ulse Oximeter] 80 87 Respiratory Rate 18 18 Blood Pressure [Le ft Arm] 125/66 Pulse Oximetry [facility] 01/14/24 15:00 01/14/24 19:00 01/14/24 23:00 Temperature 97.4 F L 97.2 F L Pulse Rate 65 Pulse Rate [Left P ulse Oximeter] 87 75 Respiratory Rate 16 18 Blood Pressure [Le ft Arm] 119/81 124/90 H Pulse Oximetry 94 96 Oxygen Delivery [facility] Room Air Room Air 01/14/24 23:00 01/14/24 23:00 01/15/24 03:00 Temperature 97.0 F L 97.6 F Pulse Rate Pulse Rate [Left P ulse Oximeter] 75 73 75 Respiratory Rate 18 15 16 Blood Pressure [Le ft Arm] 110/69 117/68 Pulse Oximetry 96 95 Oxygen Delivery [facility] Room Air Room Air 01/15/24 07:00 01/15/24 07:06 Temperature 97.9 F Pulse Rate 69 Pulse Rate [Left P ulse Oximeter] 74 Respiratory Rate 16 Blood Pressure [Le ft Arm] 154/84 H Pulse Oximetry 96 Oxygen Delivery [facility] Room Air Labs Labs: Laboratory Results - last 24 hr 01/15/24 06:24 WBC 9.64 RBC 4.62 Hgb 14.0 Hct 42.2 MCV 91 MCH 30 MCHC 33 RDW Coeff of Bár[place] 12.2 Plt Count 231 Neut % (Auto) 60.8 Lymph % (Auto) 28.4 [place] % (Auto) 6.3 Eos % (Auto) 3.8 Baso % (Auto) 0.3 Neut # (Auto) 5.85 Lymph # (Auto) 2.74 [place] # (Auto) 0.60 Eos # (Auto) 0.37 Baso # (Auto) 0.03 Abs Immat Gran (auto) 0.04 Imm/Tot Granulo (auto) 0.4 Sodium 137 Potassium 4.2 Chloride 107 Carbon Dioxide 26 Anion Gap 4 L BUN 13 Creatinine 0.5 Estimated Creat Clear 140.31 Estimated GFR 116 Glucose 86 Calcium 8.3 L
[2024-01-15] MEDS: LORazepam 2 MG/ML inj 1 MG IVP (12:01)
[2024-01-15] MEDS: PERFLUTREN LIPID MICROSPHERES 2 ML VIAL IV (12:15)
--- NOTE | 2024-01-15 15:54 | PC.NURSE ---
End of shift-- Very pleasant and cooperative, alert and oriented patient. VSS and pt is afebrile. SPO2 maintained >90% on RA. She c/o a headache this morning which resolved with Tylenol and Vistaril and has denied any other pain. Minimal right sided weakness noted in right arm and leg and pt c/o some dizziness and nausea which improved following Zofran. She also c/o some facial tingling on the right this morning and MD was notified. LS CTA, though pt occasionally has a cough. Telemetry shows NSR with occasional PVCs noted. She denied nausea and tolerated a regular diet, but was slow to swallow this morning and some coughing after her pills was noted. Pt was up to the BR with SBA and walker and tolerated it well. Pt also had a echocardiogram and tele-neuro consult today at bedside. and daughter have been at bedside and appear loving and supportive. Report to GEMA Cabrera.
[2024-01-15] MEDS: TRAZODONE HCL 50 MG TABLET 100 MG PO (20:28)
[2024-01-15] MEDS: ROSUVASTATIN CALCIUM 10 MG TABLET 20 MG PO (20:28)
[2024-01-15] MEDS: ENOXAPARIN 40 MG/0.4 ML INJ SUBCUT (20:30)
[2024-01-15] MEDS: SODIUM CHLORIDE 0.9 % (FLUSH) 10 ML SYRINGE 5 ML IVF (20:31)
[2024-01-15] MEDS: MAGNESIUM OXIDE 400 MG TABLET PO (20:32)
[2024-01-16 01:51] VITALS: BP 115/61; PULSE 71; RESP 16; TEMP 36; O2SAT 96
--- NOTE | 2024-01-16 06:51 | PC.NURSE ---
19-07: pleasant and cooperative. SBA/indep with walker. Calls appropriately. No c/o YANG and numbness/tingling sensation. VSS.
[2024-01-16 07:00] VITALS: BP 121/79; PULSE 64; RESP 16; TEMP 36.3; O2SAT 95
[2024-01-16] MEDS: PSYLLIUM HUSK (WITH SUGAR) 12 GM PACKET PO (08:08)
[2024-01-16] MEDS: SODIUM CHLORIDE 0.9 % (FLUSH) 10 ML SYRINGE 5 ML IVF ×2 (08:08→20:56)
[2024-01-16] MEDS: ASPIRIN EC 325 MG TABLET PO (08:08)
[2024-01-16] MEDS: levETIRAcetam 500 MG TABLET 750 MG PO ×2 (08:08→20:53)
[2024-01-16] MEDS: CETIRIZINE HCL 10 MG TABLET PO (08:08)
[2024-01-16 11:00] VITALS: BP 141/69; PULSE 83; RESP 16; TEMP 36.6; O2SAT 95
--- NOTE | 2024-01-16 12:06 | P.IMPN_ITS ---
Progress Note: A&P Assessment and plan (1) Ischemic cerebrovascular accident (CVA): Problem details: - MRI on 01/13/24 with formal radiology read below - PT/OT consults - may need ongoing therapy following discharge - social work job titles to assist with discharge plan/needs - LIFE SCIENTIST eval shows safe functional swallow - clinically continues to improve when slow and deliberate - Stroke Neurology following - signed off 01/14 - A1C 5.3, LDL 102. Started on statin (likely not an atherosclerotic event) though not unreasonable - TTE with bubble study 01/[address] Garcia, [facility] Cardiology, while a technically limited exam, shows normal global systolic function with EF 55-60%, mild mitral regurgitation. Satisfactory, no further studies recommended per Cardiology - hypercoagulation workup including factor 5 Leiden, lupus anticoagulant, cardiolipin antibody ordered and pending - outpatient follow-up - ASA 325mg daily, Lovenox VTE PPX 1. 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 2. No mass effect or midline shift. No hydrocephalus. No acute intracranial hemorrhage. Will need outpatient follow up with [facility], Dr. 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 along with Ativan 3mg IV - continue Keppra 750mg BID - Ativan prn - seizure precautions Will need outpatient follow up with [facility] within 8 weeks Status: Acute (3) Arteriovenous fistula: Problem details: - h/o left-sided pulsatile tinnitus and an enlarged left occipital artery by CTA - 01/09/24 catheter angiogram at [facility] shows left sigmoid dural arteriovenous fistula Status: Acute (4) Fibromuscular dysplasia: Problem details: - 01/09/2024 catheter angiogram at [facility] - aspirin therapy Status: Acute (5) Lizy-Danlos syndrome: Problem details: noted Status: Chronic Plan Awaiting discharge plans per PT/OT/LIFE SCIENTIST with the assistance of social work job titles Time Spent With Patient Total time spent: Total time spent caring for the patient today was 45 minutes. This includes time spent for the visit reviewing the chart, time spent during the visit, time spent after the visit and documentation and planning in coordination of care. Subjective Date Seen: 01/16/24 Interval history: Patient is seen with spouse at bedside. Appears much brighter and is much more animated this morning. Laughs and cries at times during our interview. Mild dizziness intermittently if moves too quickly. Eating and swallowing have improved, notably when she takes her time. More likely to choke if she rushes or takes more than 1 pill at a time. No nausea or vomiting. Appetite improving. Patient recounts with me her encounter at [facility] following her angiogram through to her ED visits and eventual hospitalization. Voicing her feelings, concerns. Currently, is very happy with the care she has been receiving here. Exam Narrative: Exam Narrative: PHYSICAL EXAM General: Very pleasant, conversant, more animated, brighter affect, good eye contact, NAD HEENT: Normocephalic, atraumatic, sclera white, EOMI, oral mucosa moist Cardiovascular: RRR, S1S2. No pitting edema Pulmonary: CTA bilaterally without rhonchi, rales, expiratory wheezes. No dyspnea on room air Neurological: Strength is improving, still mild deficit RUE. No facial droop, no slurring, no word-finding difficulty. Extremities: No gross joint deformity or swelling. AROMI. Neurovascularly intact Skin: Warm, dry. Const: Vital Signs, click to edit/add: Vital Signs - 24 hr 01/15/24 16:00 01/15/24 16:00 01/15/24 16:33 Temperature 97.3 F L Pulse Rate 79 Pulse Rate [Left P ulse Oximeter] 83 83 Respiratory Rate 16 16 Blood Pressure [Le ft Arm] 131/68 Blood Pressure [Ri ght Arm] Pulse Oximetry 93 Oxygen Delivery Me thod Room Air 01/15/24 20:10 01/15/24 22:40 01/15/24 22:40 Temperature 98.2 F 97.4 F L Pulse Rate Pulse Rate [Left P ulse Oximeter] 79 66 Respiratory Rate 16 16 16 Blood Pressure [Le ft Arm] 135/81 141/68 H Blood Pressure [Ri ght Arm] Pulse Oximetry 95 96 Oxygen Delivery [facility] thod Room Air Room Air 01/15/24 22:52 01/16/24 01:51 01/16/24 07:00 Temperature 96.8 F L Pulse Rate 71 64 Pulse Rate [Left P ulse Oximeter] 71 Respiratory Rate 16 Blood Pressure [Le ft Arm] 115/61 Blood Pressure [Ri ght Arm] Pulse Oximetry 96 Oxygen Delivery Me thod Room Air 01/16/24 07:00 01/16/24 07:00 01/16/24 11:00 Temperature 97.3 F L 97.9 F Pulse Rate Pulse Rate [Left P ulse Oximeter] 64 64 83 Respiratory Rate 16 16 16 Blood Pressure [Le ft Arm] Blood Pressure [Ri ght Arm] 121/79 141/69 H Pulse Oximetry 95 95 Oxygen Delivery Me thod Room Air Room Air
--- NOTE | 2024-01-16 12:51 | PC.SOCIAL ---
Addendum entered by MARA Augustin 01/16/24 16:53: Called [facility] and left message requesting update on review for admission. Called [facility] and spoke with Melvin who confirmed receipt of referral and that it is being worked on. Melvin stated they will call back tomorrow with a decision on admit. Met with pt and who are aware of progress made and that there is not yet an accepting acute rehab facility located. Pt was disappointed that [facility] does not anticipate a bed and requested social service liaison let them know she is an employee at [facility] and that it is her first choice if something opens up. Called and left that message for [facility] [facility] admission team. youth care worker to follow up as needed. Addendum entered by OSEI Gaffney 01/16/24 15:54: Discharge planning: youth care worker received a voice message from Vanessa at [facility] stating that they did not think it looked like pt was in need of acute therapy for three hours a day due to almost being back to baseline. They also stated that they will not have bed availability until next week. Social work to follow-up as needed. Original Note: Discharge planning- Met with pt and pt's Loyd to discuss discharge plans. Recommendation is acute rehab. Discussed with pt and pt's and they are in agreement. 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 Pt will also consider [facility] as pt states that [facility] is in tier 2. Pt agrees to send to [facility] as last choice. Pt informs that [facility] is not in coverage for her insurance. Informed pt that this worker will send out referrals and provide an update as information is available. Sent referrals to the following acute rehab facilities. 1. [facility]- phone call to admissions at [phone]. Left a voicemail requesting call back, faxed referral to [phone]. 2. [facility]- phone call to admissions at [phone]. Left a voicemail requesting call back, faxed referral to [phone]. 3. [facility]- Phone call to admissions at [phone]. Left a voicemail requesting call back, faxed referral to [phone]. Social work will continue to follow up as needed.
[2024-01-16] MEDS: ACETAMINOPHEN 500 MG TABLET 1000 MG PO ×2 (14:18→20:57)
[2024-01-16 15:00] VITALS: BP 117/66; PULSE 71; PULSE 76; RESP 16; TEMP 36.6; O2SAT 95
--- NOTE | 2024-01-16 18:35 | PC.NURSE ---
End of shift [id number]: Pt is A&O x4, afebrile and VSS today. She is independent in her room with 2ww. Pt c/o headache and lower back pain; PRN Tylenol given @ 1420 which provided relief for the headache but back pain persists. PIV in right hand SL and C/D/I. Pt c/o tenderness at the site; cold pack applied & provided some relief. TELE reads NSR w/ rare PVC?s. RENTAL COUNTER CLERK eval done today- recommended for patient to have pills one at a time, take small bites, chew slowly and take drinks in between bites. ?
[2024-01-16] MEDS: ENOXAPARIN 40 MG/0.4 ML INJ SUBCUT (20:53)
[2024-01-16] MEDS: MAGNESIUM OXIDE 400 MG TABLET PO (20:54)
[2024-01-16] MEDS: ROSUVASTATIN CALCIUM 10 MG TABLET 20 MG PO (20:56)
[2024-01-16] MEDS: TRAZODONE HCL 50 MG TABLET 100 MG PO (20:56)
[2024-01-16] MEDS: hydrOXYzine pamoate 25 MG CAPSULE PO (20:57)
[2024-01-16 21:00] VITALS: BP 120/60; PULSE 67; RESP 16; TEMP 36.4; O2SAT 95
--- NOTE | 2024-01-16 22:31 | PC.NURSE ---
Condition note: Pt c/o pain to LAC (old IV site). Site assessed, noted to be slightly red and hard to touch. Arm wrapped in warm blanket and elevated.
[2024-01-16 23:40] VITALS: PULSE 73
[2024-01-17 03:40] VITALS: BP 110/56; PULSE 55; RESP 14; TEMP 36.6; O2SAT 97
--- NOTE | 2024-01-17 06:16 | PC.NURSE ---
END OF SHIFT NOTE: PT PLEASANT AND COOPERATIVE. A&O. DENIES?CP, SOB, N/V. VSS ON RA; AFEBRILE. PT SLEPT WELL OVERNIGHT. AMBULATES INDEPENDENTLY WITH WALKER. DID NOT CALL THIS SHIFT. CALL LIGHT WITHIN PT?S REACH. TELE-NSR.
[2024-01-17 07:00] VITALS: BP 119/75; PULSE 60; PULSE 61; RESP 18; TEMP 36.6; O2SAT 97
[2024-01-17] MEDS: Fluticasone Furoate-Vilanterol [Breo Ellipta] 200-25 mcg/dose 1 EACH IH (09:38)
[2024-01-17] MEDS: PSYLLIUM HUSK (WITH SUGAR) 12 GM PACKET PO (09:38)
[2024-01-17] MEDS: CETIRIZINE HCL 10 MG TABLET PO (09:38)
[2024-01-17] MEDS: ASPIRIN EC 325 MG TABLET PO (09:38)
[2024-01-17] MEDS: levETIRAcetam 500 MG TABLET 750 MG PO (09:38)
--- NOTE | 2024-01-17 10:29 | P.DS_ITS ---
DS: Providers Provider Date Seen: 01/17/24 Date of admission: 01/14/24 03:29 Primary care physician: Keira Irvin MD Admitting Clinician: Anna Villarreal MD Consults: 01/14/24 03:29 Consult to Physical Therapy [CONS] Routine Comment: Reason(s) for PT Consult:: Evaluate and Treat Any Restrictions?:: No Restrictions Consult to Speech Therapy [CONS] Routine Comment: Reason(s) for Speech Consult:: Speech/Swallowing Eval 01/14/24 03:31 Consult to Occupational Therapy [CONS] Routine Comment: Reason(s) for OT Consult:: Evaluate and Treat Any Restrictions?:: No Restrictions Attending Physician on discharge: BRENDA Munson, [facility] Date of Discharge: 01/17/24 DS: Diagnosis Discharge Diagnosis (1) Ischemic cerebrovascular accident (CVA): Status: Acute Problem details: MRI on 01/13/24 shows Multiple acute ischemic infarcts in the frontal lobes, parietal lobes, and left supramarginal gyrus. No mass effect or midline shift. No hydrocephalus. No acute intracranial hemorrhage. [facility] consulted and followed A1C 5.3, LDL 102 TTE with bubble study 01/[address] Garcia, [facility] Cardiology, while a technically limited exam, shows normal global systolic function with EF 55-60%, mild mitral regurgitation. Satisfactory, no further studies recommended per Cardiology ASA 325mg daily, Lovenox VTE PPX Started on statin prophylactically PT/OT consulted - recommending acute rehab. 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 [employer] eval shows safe functional swallow. OT recommending acute rehab for speech Hypercoagulation workup including factor 5 Leiden, lupus anticoagulant, cardiolipin antibody ordered and pending at time of discharge. Per [facility], will need outpatient follow up with [facility], Dr. Gutierrez, as well as with [facility] within 8 weeks (2) Seizure: Status: Acute Problem details: Noted 01/13 patient partner, given Keppra load along with Ativan 3mg IV, continued on Keppra 750mg BID with Ativan as needed. Seizure precautions. No further episodes during hospital course. Will need outpatient follow up with Neurology epilepsy Clinic within 8 weeks (3) Arteriovenous fistula: Status: Acute Problem details: History of left-sided pulsatile tinnitus and an enlarged left occipital artery by CTA - 01/09/24 catheter angiogram at [facility] shows left sigmoid dural arteriovenous fistula (4) Fibromuscular dysplasia: Status: Acute Problem details: As noted 01/09/2024 catheter angiogram at [facility] - continue aspirin therapy (5) Lizy-Danlos syndrome: Status: Chronic Problem details: noted DS: Summary Hospital Course Hospital Course: [age] year old female past medical history significant for Lizy Danlos syndrome, chronic pain, tinnitus, anxiety and depression was admitted to the medical floor for further management acute CVA. Course of care and details as noted above. Patient is transferred to [facility] acute rehab for ongoing therapies status post CVA, new onset seizures. Remainder of chronic medical comorbidities were monitored and managed with home medications. Status at Discharge Functional status at discharge: independent ambulation Overall status at discharge: patient is not back to baseline Time Spent with Patient Time attestation: Total time spent providing and/or coordinating discharge services: Time spent: Greater than 30 minutes Exam Narrative: Exam Narrative: PHYSICAL EXAM General: Pleasant, conversant, NAD Cardiovascular: RRR Pulmonary: No dyspnea Neurological: Alert, answering questions appropriately Skin: Warm, dry. Const: Vital Signs, click to edit/add: Vital Signs - 24 hr 01/15/24 16:00 01/15/24 16:00 01/15/24 16:33 Temperature 97.3 F L Pulse Rate 79 Pulse Rate [Left P ulse Oximeter] 83 83 Respiratory Rate 16 16 Blood Pressure [Le ft Arm] 131/68 Blood Pressure [Ri ght Arm] Pulse Oximetry 93 Oxygen Delivery Me thod Room Air 01/15/24 20:10 01/15/24 22:40 01/15/24 22:40 Temperature 98.2 F 97.4 F L Pulse Rate Pulse Rate [Left P ulse Oximeter] 79 66 Respiratory Rate 16 16 16 Blood Pressure [Le ft Arm] 135/81 141/68 H Blood Pressure [Ri ght Arm] Pulse Oximetry 95 96 Oxygen Delivery Me thod Room Air Room Air 01/15/24 22:52 01/16/24 01:51 01/16/24 07:00 Temperature 96.8 F L Pulse Rate 71 64 Pulse Rate [Left P ulse Oximeter] 71 Respiratory Rate 16 Blood Pressure [Le ft Arm] 115/61 Blood Pressure [Ri ght Arm] Pulse Oximetry 96 Oxygen Delivery Me thod Room Air 01/16/24 07:00 01/16/24 07:00 01/16/24 11:00 Temperature 97.3 F L 97.9 F Pulse Rate Pulse Rate [Left P ulse Oximeter] 64 64 83 Respiratory Rate 16 16 16 Blood Pressure [Le ft Arm] Blood Pressure [Ri ght Arm] 121/79 141/69 H Pulse Oximetry 95 95 Oxygen Delivery Me thod Room Air Room Air DS: Data Data Completed and Pending Pending studies at discharge: Hypercoagulation studies. [facility] Labs on day of discharge: Labs from last 24 hours 01/15/24 07:07 Factor V Spec Type Pending Factor V Leiden Mutat Pending Anti-Cardiolipin IgG Ab Pending Anti-Cardiolipin IgA Ab Pending Anti-Cardiolipin IgM Ab Pending Imaging Echo: Attestation: I have reviewed the pertinent imaging results. Radiologist's impression: Final Impressions: 1. Technically limited exam. 2. Normal LV size, normal wall thickness, normal global systolic function with an estimated EF of 55 - 60%. 3. The mitral valve is normal, mild mitral regurgitation. 4. Echo contrast was administered to enhance visualization of all left ventricular segments. CT scan - head: Attestation: I have reviewed the pertinent imaging results. Radiologist's impression: Study:?CT-Head W/O-01/14/2024 3:49:13 AM Ordering Physician:DEVANG Final Report: INDICATION: Seizure. TECHNIQUE: CT head without contrast. COMPARISON: MRI brain 01/13/2024. FINDINGS: CSF spaces: Within normal limits for age. Brain parenchyma: Known scattered acute infarcts better seen on prior MRI brain. The pollack-white differentiation is otherwise maintained. No sign of mass, hemorrhage, or midline shift. Skull base and calvarium: The visualized paranasal sinuses and mastoid air cells demonstrate no acute or significant findings. The visualized orbits are grossly unremarkable. No skull fractures. IMPRESSION: 1. No acute intracranial hemorrhage or mass effect. 2. Known scattered acute infarcts better seen on prior MRI brain. CT neck: Attestation: I have reviewed the pertinent imaging results. Radiologist's impression: Study:?CT-Neck Angio W/ 95CC ISOVUE 370-01/13/2024 10:12:15 PM Ordering Physician:CRUZ Final Report: DATE: 01/13/2024 CLINICAL HISTORY: Patient with focal neurological deficits, recent strokes, right ICA dissection. TECHNIQUE: Standard helical CT image acquisition of the neck up to the skull base after bolus intravenous contrast enhancement. 2D and 3D MIP images for post-processing were performed and interpreted on an independent workstation and 3D images were permanently archived. COMPARISON: MRI same day, angiogram 01/09/2024 FINDINGS: There is mild luminal irregularities in the cervical segments of the internal carotid arteries bilaterally, consistent with the known diagnosis of Lizy- Danlos syndrome. The mild right cervical internal carotid artery dissection is not appreciated by CT angiography. There is asymmetric enlargement of the left occipital artery with early opacification of the left sigmoid sinus, consistent with the known dural arteriovenous fistula. The origins of the great vessels from the aortic arch are patent. The origin of the right vertebral artery is patent. The origin of the left vertebral artery is patent. The common carotid arteries are patent. There is no stenosis at the origin of the right internal carotid artery. There is no stenosis at the origin of the left internal carotid artery. The rest of the cervical segments of the internal carotid arteries are patent up to the skull base. The vertebral arteries are codominant. The cervical segments of the vertebral arteries are patent up to the skull base. The visualized lung apices are unremarkable. The thyroid gland is unremarkable. The soft tissues of the neck are unremarkable. There are degenerative changes in the cervical spine. IMPRESSION: 1. Patent cervical vasculature. 2. Mild luminal irregularities in the cervical segments of the internal carotid arteries bilaterally are consistent with the known diagnosis of Lizy-Danlos syndrome. The mild right cervical internal carotid artery dissection is not appreciated by CT angiography. 3. Asymmetric enlargement of the left occipital artery with early opacification of the left sigmoid sinus is consistent with the known dural arteriovenous fistula. CTA head: Attestation: I have reviewed the pertinent imaging results. Radiologist's impression: Study:?CT-Head Angio W/ 95CC ISOVUE 370-01/13/2024 10:11:45 PM Ordering Physician:CRUZ Final Report: DATE: 01/13/2024 CLINICAL HISTORY: Patient with focal neurological deficits. TECHNIQUE: Standard helical CT image acquisition through the intracranial circulation following intravenous administration of contrast material with bolus tracking. 2D and 3D MIP images for post-processing were performed and interpreted on an independent workstation and 3D images were permanently archived. COMPARISON: MRI same day. FINDINGS: There is no cerebral aneurysm or large vessel occlusion. The right internal carotid artery is normal. The right middle cerebral artery and its branches are normal. The right anterior cerebral artery and its branches are normal. The left internal carotid artery is normal. The left middle cerebral artery and its branches are normal. The left anterior cerebral artery and its branches are normal. The anterior communicating artery is well visualized and appears normal. The right vertebral artery and PICA are normal. The left vertebral artery and PICA are normal. The vertebral arteries are codominant. The basilar artery is patent and appears normal. The right posterior cerebral artery is normal. The left posterior cerebral artery is normal. The visualized venous structures are patent, with early opacification of the left sigmoid sinus. IMPRESSION: 1. Patent proximal intracranial vasculature without intracranial aneurysms. 2. Asymmetric enlargement of the left occipital artery with early opacification of the left sigmoid sinus is consistent with the known dural arteriovenous fistula. MRI brain: Attestation: I have reviewed the pertinent imaging results. Radiologist's impression: Study:?MRI-Head WO-01/13/2024 3:31:17 PM Ordering Physician:VADIM Final Report: Indication: RT ARM WEAKNESS, NUMBNESS OF LEFT SIDE, DIZZINESS Technique: Noncontrast sagittal T1 weighted, axial FLAIR, axial T2 weighted, and axial diffusion weighted sequences are provided. Comparison: CT 01/07/2024 Findings: Numerous scattered foci of diffusion restriction in the left greater than right frontal cortex, bilateral centrum semiovale, left supra marginal gyrus compatible with acute ischemic infarcts. Infarcts involve the left precentral and postcentral gyrus. No pathologic susceptible artifacts. No midline shift. No hydrocephalus. No acute intracranial hemorrhage. The pituitary gland, optic chiasm, pineal gland and cerebellar tonsils are unremarkable. Calvarial bone marrow signal is within normal limits. Mild mucosal thickening in the left posterior ethmoid air cells. The orbits are unremarkable. Impression: 1. 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 2. No mass effect or midline shift. No hydrocephalus. No acute intracranial hemorrhage. Discharge Plan Discharge Disposition: [facility] Date of Admission: 01/14/24 03:29 Attending Provider on Discharge: Myriam Wang Primary Care Provider: Keira Irvin Condition: Stable Discharge Orders: Transfer of Care to Other Hospital (ORDER); Ordered 01/17/24 Ordered By: Myriam Wang Oxygen: No Urinary Catheter: No Services not available here: Acute rehab s/p CVA
[2024-01-17 11:00] VITALS: BP 132/77; PULSE 77; RESP 18; O2SAT 95
--- NOTE | 2024-01-17 11:22 | PC.SOCIAL ---
Discharge planning: Received calls back from [facility], confirming they do not have availability for pt in their acute rehab unit. Received call from [facility], stating they can accept pt today. Spoke with pt and who are aware and agree with this plan. [facility] will contact and pt to answer any questions they have about the facility and program. Secure emailed requested discharge summary and orders to [facility]. Arranged for ambulance transport due to acute to acute hospital transfer. superannuation clerk expected at noon. licensed master social worker to follow up as needed.
--- NOTE | 2024-01-17 14:08 | PC.NURSE ---
Nursing Care Hours: [phone] Pt cooperative and alert and oriented. Pt crying and sad start of shift r/t diagnosis and situation. Pt also stating i cant remember things, I am I going to work if I can't remember things. Stated feelings of sadness came on the night before. Clinic Physician Director offered active listening and support. When typewriter operator automatic arrived to the room after breakfast, pt up in chair with smile while significant other in the room. Independent ambulation with walker tolerating well. VSS. 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 Tolerating pills whole, one at a time with water. IV removed prior to transfer to acute rehab. Transferred via EMS.
[2024-01-18 07:05] LABS: Cardiolipin Antibody IgA <10 APL (<=11); Cardiolipin Antibody IgG <10 GPL (<=14); Cardiolipin Antibody IgM <10 MPL (<=12)
[2024-01-20 19:04] LABS: FACV Specimen Whole Blood; Factor V Leiden (F5) Mutation Negative
== END 2024-01-17 12:05 | DRG 64 ==
LOC: ED 22:46 → MEDSURG 01-14 01:13
PROVIDERS: Family Medicine; Internal Medicine; Admitting Provider Family Medicine; Emergency Provider Family Medicine; PCP Family Medicine; Visit Provider Family Medicine
DX: I63.9 Cerebral infarction, unspecified (principal); I77.79 Dissection of other specified artery; Q79.60 Ehlers-Danlos syndrome, unspecified; R20.2 Paresthesia of skin; G83.21 Monoplegia of upper limb affecting right dominant side; I77.3 Arterial fibromuscular dysplasia; I77.0 Arteriovenous fistula, acquired; F41.9 Anxiety disorder, unspecified; F32.A Depression, unspecified; J45.30 Mild persistent asthma, uncomplicated; N18.1 Chronic kidney disease, stage 1; M79.7 Fibromyalgia; R07.9 Chest pain, unspecified; R56.9 Unspecified convulsions; R51.9 Headache, unspecified; R47.9 Unspecified speech disturbances; R13.10 Dysphagia, unspecified
CPT/HCPCS: 36415; 70450; 70496; 70498; 80048; 80061; 81241; 83036; 84484; 85025; 85610; 85613; 85730; 86147; 92507; 92610; 93005; 93306; 94761; 97110; 97112; 97116; 97162; 97166; 97530; 97535; 99284; 99285; A9270; J1650; J1953; J2060; J2405; J7030; Q9957; Q9967

== ENCOUNTER 2024-01-17 12:00 | Outpatient (CLI) | payer OTHER, SELFPAY ==
--- OUTSIDE RECORDS SUMMARY | 2024-01-21 14:20 | XMS_ITS | Encounter Summary ---
Author Name Unknown Organization [facility] Address [address] [place] [address] Care Team Providers Care Risk Manager Name Role Phone Darius Shaw M.D. Primary Care Provider Encounter Details Date Type Department Care Team (Late st Contact Info) Description 05/12/2013 Historical Ophthalmology RST OPH Jonathan Bonilla M.D. [address] [place] [address] [phone] Social History Tobacco Use Types Packs/Day Years [...] corneal thickness CDM Reports - EYEGEN Id: [id number] Status: Fnl documented in this encounter Plan of Treatment Not on file documented as of this encounter Visit Diagnoses Not on filedocumented in this encounter Additional Health Concerns Infection Onset Date Last Indicated Resolved Time COVID19 Pending 07/11/2020 07/11/2020 07/12/2020 5 :56 PM CDT COVID19 Pending 07/17/2020 07/17/2020 07/17/2020 9 :18 PM CHIP TESTER COVID19 Pending 09/19/2020 09/19/2020 10/09/2020 4 :45 AM CHIP TESTER COVID19 Pending 10/25/2020 10/26/2020 10/27/2020 9 :59 AM CHIP TESTER COVID19 Pending 06/03/2021 06/03/2021 06/03/2021 9 :40 AM CDT COVID19 Pending 06/03/2021 06/03/2021 06/03/2021 1 0:36 PM CDT COVID19 Pending 08/09/2021 08/09/2021 08/11/2021 1 2:57 AM CHIP TESTER COVID19 Pending 06/26/2022 06/26/2022 06/26/2022 5 :47 PM CDT Assessment Noted Time PHQ-9 Depression Total Score: 8 09/18/19 13 7:41 AM CHIP TESTER documented as of this encounter Care Teams Risk Manager Relationship Specialty Start Date End Date Darius Shaw M.D. [id number] [phone] PCP - General Family Medicine 09/27/22 documented as of this encounter
--- OUTSIDE RECORDS SUMMARY | 2024-01-21 14:20 | XMS_ITS | Clinical Summary ---
Author Name Unknown Organization [facility] Address [address] [place] [address] Care Team Providers Care As400 Consultant Name Role Phone Winston Villatoro OD Unavailable [phone] Denise Woodson Ra, APRN [place] Unavailable [phone] Denise Woodson Ra, APRN [place] Primary Care Provid er Allergies Active Allergy Reactions Criticality Noted Date Comments Bupropion GI Disturbance,Other (See Comments) Low 01/19/2011 Diarrhea and stomach ache Erythromycin GI Disturbance Low 12/27/2005 Mold Dizziness,GI Disturbance 08/22/2012 Medications Medication Sig Dispensed Refills Start Date End Date Status cyclobenzaprine (FLEXERIL) 10 MG tabletIndications :Neck muscle spasm Take 1 tablet (10 mg) by mouth 3 times daily as needed for muscle spasms 20 tablet 06/12/2017 01/20/20 24 Discontinued( Med Rec(No AVS / No eCancel)) Chelated Magnesium 100 MG TABS Take 100 mg by mouth At Bedtime 01/20/20 24 Discontinued( Med Rec(No AVS / No eCancel)) fluticasone (FLONASE) 50 MCG/ACT nasal sprayIndications: Chronic rhinitis [place] 2 sprays into both nostrils daily 16 g 3 06/15/2019 01/20/20 24 Discontinued( Med Rec(No AVS / No eCancel)) albuterol (PROAIR HFA/PROVENTIL HFA/VENTOLIN HFA) 108 (90 Base) MCG/ACT inhalerIndication s:Moderate persistent asthma without complication Inhale 2 puffs into the lungs every 4 hours as needed for shortness of breath / dyspnea or wheezing 1 Inhaler 3 07/13/2020 Suspended Additional Information traZODone (DESYREL) 50 MG tabletIndications :Insomnia, unspecified type Take 2 tablets (100 mg) by mouth At Bedtime 180 tablet 3 07/27/2021 Suspended Additional Information BREO ELLIPTA 200-25 MCG/INH InhalerIndication s:Moderate persistent asthma without complication INHALE 1 PUFF INTO THE LUNGS DAILY 3 each 1 02/22/2022 Suspended Additional Information aspirin (ASA) 325 MG EC tablet Take 325 mg by mouth daily Suspended cetirizine (ZYRTEC) 10 MG tablet Take 10 mg by mouth daily Suspended levETIRAcetam (KEPPRA) 750 MG tablet Take 750 mg by mouth 2 times daily Suspended magnesium oxide 200 MG TABS Take 200 mg by mouth at bedtime Suspended psyllium (METAMUCIL) 28.3 % packet Take 1 packet by mouth daily Suspended rosuvastatin (CRESTOR) 20 MG tablet Take 20 mg by mouth at bedtime Suspended Active Problems Problem Noted Date Diagnosed Date Seizure-like activity 01/20/2024 History of seizure 01/20/2024 History of stroke 01/20/2024 Stroke 01/17/2024 Moderate persistent asthma without complication 06/15/2019 Chronic [...] Date Resolved Date Dysthymic disorder 10/08/2007 8 Encounters Date Type Department Care Team Description 01/21/2024 8:30 AM CDT Ancillary Procedure [facility] EEG [address] [facility] [address] Kev Ansari MD Choudhary, Kriti, MD Arrived 01/19/2024 11:16 PM CDT - Present Hospital Encounter [facility]ly [facility] [address] [place] [address] Luis Reynolds DO Choudhary, Kriti, MD 01/17/2024 1:09 PM CDT - 01/19/2024 10:07 PM CDT Hospital Encounter [facility] [address] [address] Parminder Del Angel MD Al Lawati, Zainab, MD Discharge Disposition: Short Term Hospital from Last 3 Months Immunizations Name Administration [...] Sign Reading Time Taken Comments Blood Pressure 139/70 01/21/2024 9:00 AM CDT Pulse 70 01/21/2024 9:00 AM CDT Temperature 36.6 ??C (97.9 ??F) 01/21/2024 9:00 AM CD T Respiratory Rate 18 01/21/2024 9:00 AM CDT Oxygen Saturation 97% 01/21/2024 9:00 AM CDT Inhaled Oxygen Concentration - - Weight 96.9 kg (213 lb 9.6 oz) 01/17/2024 1:23 P M CDT Height 174.6 cm (5' 8.74) 01/17/2024 1:23 PM CD T Body Mass Index 31.78 01/17/2024 1:23 PM CDT Plan of Treatment Upcoming Encounters Date Type Department Care Team (Late st Contact Info) Description 03/23/2024 10:30 AM CDT Office Visit [facility] [id number] [place] [phone] Denise Woodson Ra, TYPISTS SUPERVISOR [place] [address] [place] [address] Health Maintenance Due Date Last Done Comments ADVANCE CARE PLANNING 1976 CT COLONOGRAPHY 1976 FIT 1976 FLEX SIG 1976 COLONOSCOPY 1986 HIV SCREENING 1991 HEPATITIS C SCREENING 1994 Pneumococcal Vaccine: Pediatrics (0 to 5 Years) and At-Risk Patients (6 to 64 Years) (2 of 2 - PCV) 03/16/2005 03/16/2004 PHQ-9 12/22/2021 06/23/2021, 12/16, 06/15/2019, Additional history exists ANNUAL REVIEW OF HM ORDERS 01/04/2022 01/04/2021 ASTHMA ACTION PLAN 01/04/2022 01/04/2021, 0 01/04/2021, 06/15/2019 ASTHMA CONTROL TEST 07/25/2022 01/22/2022, 06/23/2021, 01/04/2021, Additional history exists LIPID 07/27/2022 07/27/2021, 07/17, 03/16/2008 COVID-19 Vaccine ( season) 2023 07/07/2021, 11/20/2020 YEARLY PREVENTIVE VISIT 01/11/2024 01/11/20 23, 07/27/2021, 07/27/2020, Additional history exists INFLUENZA VACCINE (Season Ended) 2024 08/02/2022, 06/23/2021, 07/27/2020, Additional history exists MAMMO SCREENING 07/30/2025 07/30/2023, 07/17, 04/25/2022, Additional history exists COLORECTAL CANCER SCREENING 10/28/2025 sDNA (Cologuard) 10/28/2025 10/28/2022 GLUCOSE 01/20/2027 01/21/2024, 05/0 02/2024, 01/19/2024, Additional history exists DTAP/TDAP/TD IMMUNIZATION (6 - Td or Tdap) [...] patient's age to complete this topic Procedures The patient is currently admitted. The information in this section might not be complete until the patient is discharged. Procedure Name Priority Date/Time Associated Diagnosis Comments CBC WITH PLATELETS & DIFFERENTIAL Routine 01/21/2024 5:51 AM CDT CBC WITH PLATELETS AND DIFFERENTIAL Routine 01/21/2024 5:51 AM CDT BASIC METABOLIC PANEL Routine 01/21/2024 5:51 AM CDT MRA NECK (CAROTIDS) W/O & W CONTRAST STAT 01/20/2024 6:54 PM CDT MR BRAIN W/O & W CONTRAST STAT 01/20/2024 6:53 PM CDT MRA BRAIN ([place]) W/O CONTRAST STAT 01/20/2024 6:50 PM CDT CBC WITH PLATELETS & DIFFERENTIAL Routine 01/20/2024 6:29 AM CDT CBC WITH PLATELETS AND DIFFERENTIAL Routine 01/20/2024 6:29 AM CDT BASIC METABOLIC PANEL Routine 01/20/2024 6:29 AM CDT LACTIC ACID WHOLE BLOOD STAT 01/19/20 11:55 PM CDT BASIC METABOLIC PANEL STAT 01/19/2024 11:55 PM CDT TROPONIN T, HIGH SENSITIVITY STAT 01/19/2024 11:55 PM CDT EXTRA PURPLE TOP TUBE Routine 01/19/2024 11:54 PM CDT EXTRA TUBE Routine 01/19/2024 11:[address] HEAD W/O CONTRAST Routine 01/19/2024 10:34 PM CDT EKG 12-LEAD, TRACING ONLY STAT 01/19/2024 10:33 PM CDT CBC WITH PLATELETS & DIFFERENTIAL STAT 01/19/2024 9:33 PM CDT CBC WITH PLATELETS AND DIFFERENTIAL STAT 01/19/2024 9:33 PM CDT FIBRINOGEN ACTIVITY Routine 01/19/2024 9 :33 PM CDT PARTIAL THROMBOPLASTIN TIME Routine 01/19/2024 9:33 PM CDT INR Routine 01/19/2024 9:33 PM CDT PROLACTIN STAT 01/19/2024 9:33 PM CDT EXTRA GREEN TOP (LITHIUM HEPARIN) TUBE Routine 01/18/2024 5:40 AM CDT EXTRA TUBE Routine 01/18/2024 5:40 AM CDT PLATELET COUNT Timed 01/18/2024 5:40 AM CDT MA SCREENING BILATERAL W/ FLO Routine 07/30/2023 2:38 PM ALLERGIST/PEDIATRIC PULMONOLOGIST LIPID REFLEX TO DIRECT LDL PANEL Routine 07/27/2021 8:57 AM ALLERGIST/PEDIATRIC PULMONOLOGIST CARDIOVASCULAR SCREENING; LDL GOAL LESS THAN 160 ASTHMA ACTION PLAN Routine 01/04/2021 9: 09 AM CDT CL AFF HEMOGRAM/PLATE/DIFF Routine 11/08/2000 10:04 AM ALLERGIST/PEDIATRIC PULMONOLOGIST Routine Medical Exam from Last 3 Months or Most Recently Relevant to Health Maintenance Results * CBC with platelets and differential (01/21/2024 5:51 AM CDT) Only the most recent of3 resultswithin the time period is included. WBC Count 8.6 4.0 - 11.0 10e3/uL 01/21/2024 6:49 AM CDT [facility] RBC Count 4.49 3.80 - 5.20 10e6/uL 01/21/2024 6:49 AM CDT [facility] Hemoglobin 13.6 11.7 - 15.7 g/dL 01/21/2024 6:49 AM CDT [facility] Hematocrit 40.3 35.0 - 47.0 % 01/21/2024 6:49 AM CDT [facility] MCV 90 78 - 100 fL 01/21/2024 6:49 AM CDT [facility] MCH 30.3 26.5 - 33.0 pg 01/21/2024 6:49 AM CDT [facility] MCHC 33.7 31.5 - 36.5 g/dL 01/21/2024 6:49 AM CDT [facility] RDW 12.1 10.0 - 15.0 % 01/21/2024 6:49 AM CDT [facility] Platelet Count 181 150 - 450 10e3/uL 01/21/2024 6:49 AM CDT [facility] % Neutrophils 51 % 01/21/2024 6:49 AM CDT [facility] % Lymphocytes 35 % 01/21/2024 6:49 AM CDT [facility] % Monocytes 8 % 01/21/2024 6:49 AM CDT [facility] % Eosinophils 4 % 01/21/2024 6:49 AM CDT [facility] % Basophils 1 % 01/21/2024 6:49 AM CDT [facility] % Immature Granulocytes 1 % 01/21/2024 6:49 AM CDT [facility] NRBCs per 100 WBC 0 <1 /100 024 6:49 AM CDT [facility] Absolute Neutrophils 4.5 1.6 - 8.3 10e3/uL 01/21/2024 6:49 AM CDT [facility] Absolute Lymphocytes 3.0 0.8 - 5.3 10e3/uL 01/21/2024 6:49 AM CDT UR [facility] Absolute Monocytes 0.7 0.0 - 1.3 10e3/uL 01/21/2024 6:49 AM CDT [facility] Absolute Eosinophils 0.4 0.0 - 0.7 10e3/uL 01/21/2024 6:49 AM CDT [facility] Absolute Basophils 0.0 0.0 - 0.2 10e3/uL 01/21/2024 6:49 AM CDT [facility] Absolute Immature Granulocytes 0.0 <=0.4 10e3/uL 01/21/2024 6:49 AM CDT [facility] Absolute NRBCs 0.0 10e3/uL 01/21/2024 6:49 AM CDT [facility] Blood STRUCTURE OF RIGHT HAND / Unknown Venipuncture / Unknown 01/21/2024 5:51 AM CDT 01/21/2024 6:49 AM CDT Kun Call MD LAB - BLOOD ORDERABL ES UR LABORATORY [facility] [address] [facility] [place] [address] * Basic metabolic panel (01/21/2024 5:51 AM CDT) Only the most recent of3 resultswithin the time period is included. [facility] Sodium 139 135 - 145 mmol/L 01/21/2024 6:47 AM CDT [facility] Comment:Reference intervals for this test were updated on 06/11/2023 to more accurately reflect our healthy population. There may be differences in the flagging of prior results with similar values performed with this method. Interpretation of those prior results can be made in the context of the updated reference intervals. Potassium 4.3 3.4 - 5.3 mmol/L 01/21/2024 6:47 AM CDT [facility] Chloride 106 98 - 107 mmol/L 01/21/2024 6:47 AM CDT [facility] Carbon Dioxide (CO2) 26 22 - 29 mmol/L 01/21/2024 6:47 AM CDT [facility] Anion Gap 7 7 - 15 mmol/L 01/21/2024 6:47 AM CDT [facility] Urea Nitrogen 16.5 6.0 - 20.0 mg/dL 01/21/2024 6:47 AM CDT [facility] Creatinine 0.71 0.51 - 0.95 mg/dL 01/21/2024 6:47 AM CDT [facility] GFR Estimate >90 >60 mL/min/1. 73m2 01/21/2024 6:47 AM CDT [facility] Calcium 8.7 8.6 - 10.0 mg/dL 01/21/2024 6:47 AM CDT [facility] Glucose 88 70 - 99 mg/dL 01/21/2024 6:47 AM CDT [facility] Blood STRUCTURE OF RIGHT HAND / Unknown Venipuncture / Unknown 01/21/2024 5:51 AM CDT 01/21/2024 6:22 AM CDT Kun Call MD LAB - BLOOD ORDERABL ES UR LABORATORY [facility] [address] [facility] [place] [address], [facility] * MRA Neck (Carotids) wo & w Contrast (01/20/2024 6:54 PM CDT) Anatomical Region Laterality Modality Neck, SUBRAD MR NEURO, UMP MR NEURO, RAD MR Magnetic Resonance Impressions 01/20/2024 7:46 PM CDT IMPRESSION: Neck MRA demonstrates patent major cervical vasculature without significant stenosis. Mild irregularity of the right cervical internal carotid artery and proximal right vertebral artery. This does not have the typical beaded appearance frequently seen with fibromuscular dysplasia, as was suggested on outside report 01/09/2024, but catheter angiography is higher resolution. I have personally reviewed the examination and initial interpretation and I agree with the findings. 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 COMPARISON: No images. Outside reports CTA head and neck 01/09/2024, cerebral angiogram 01/09/2024 obtained through Care Everywhere. TECHNIQUE: Neck MRA: Limited non contrast 2DTOF images were obtained of the mid-cervical region. Following intravenous gadolinium-based contrast administration, a contrast enhanced MRA of the neck/cervical vessels was performed. Three-dimensional reconstructions of the neck and head MRA were created, which were reviewed by the radiologist. CONTRAST: 9.6ml iv Gadavist. FINDINGS: Neck MRA demonstrates patent major cervical vasculature. No significant stenosis. The normal distal right internal carotid artery measures 5 mm. The normal distal left internal carotid artery measures 5 mm. Mild irregularity of the right cervical internal carotid artery and V1 and proximal V2 segments of the right vertebral artery. 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 Outside reports CTA head and neck 01/09/2024, cerebral angiogram 01/09/2024 obtained through Care Everywhere. TECHNIQUE: Neck MRA: Limited non contrast 2DTOF images were obtained of the mid-cervical region. Following intravenous gadolinium-based contrast administration, a contrast enhanced MRA of the neck/cervical vessels was performed. Three-dimensional reconstructions of the neck and head MRA were created, which were reviewed by the radiologist. CONTRAST: 9.6ml iv Gadavist. FINDINGS: Neck MRA demonstrates patent major cervical vasculature. No significant stenosis. The normal distal right internal carotid artery measures 5 mm. The normal distal left internal carotid artery measures 5 mm. Mild irregularity of the right cervical internal carotid artery and V1 and proximal V2 segments of the right vertebral artery. IMPRESSION: Neck MRA demonstrates patent major cervical vasculature without significant stenosis. Mild irregularity of the right cervical internal carotid artery and proximal right vertebral artery. This does not have the typical beaded appearance frequently seen with fibromuscular dysplasia, as was suggested on outside report 01/09/2024, but catheter angiography is higher resolution. I have personally reviewed the examination and initial interpretation and I agree with the findings. ANA LATHAM MD Airam Jay MD [facility] MRI ORDERABLES * MR Brain w/o & w Contrast (01/20/2024 6:53 PM CDT) Anatomical Region Laterality Modality Head, SUBRAD MR NEURO, UMP MR NEURO, RAD MR Magnetic Resonance Impressions 01/20/2024 7:34 PM CDT IMPRESSION: ??No acute infarct. Scattered subcortical foci of T2 hyperintensity and enhancement in the left frontal and parietal lobes are likely due to the reported subacute infarcts. I have personally reviewed the examination and initial interpretation and I agree with the findings. 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 COMPARISON: No images to review. Outside reports of CTA head and neck dated 01/09/2024, cerebral angiogram 01/09/2024, MRI brain 09/28/2022. Outside reports found through Care Everywhere. TECHNIQUE: Sagittal T1-weighted, coronal T2-weighted, axial T2 FLAIR, axial susceptibility weighted, and axial diffusion-weighted with ADC map images of the brain were obtained without intravenous contrast. After the administration of intravenous contrast axial and coronal fat-suppressed T1-weighted weighted images were obtained CONTRAST: 9.6ml iv Gadavist. FINDINGS: Diffusion weighted imaging is negative for acute abnormality. There are small scattered subcortical foci of T2 hyperintensity throughout the frontal and parietal lobes which may correspond with reported recent infarcts. There is no mass effect, midline shift, or intracranial hemorrhage. The ventricles are proportionate to the cerebral sulci. Diffusion and susceptibility weighted images are negative for acute/focal abnormality. Major intracranial vascular structures are within normal limits. Following the administration of contrast, there is a cortical/subcortical focus of tubular contrast enhancement in the left parietal lobe likely corresponding with dural AV fistula reported on outside cerebral angiogram report for 01/09/2024. No suspicious abnormality of the skull marrow signal. Clear paranasal sinuses. Mastoid air cells are clear. No focal abnormality of the pituitary gland, sella, skull base and upper cervical spinal structures on sagittal images. The orbits are normal. 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 Outside reports of CTA head and neck dated 01/09/2024, cerebral angiogram 01/09/2024, MRI brain 09/28/2022. Outside reports found through Care Everywhere. TECHNIQUE: Sagittal T1-weighted, coronal T2-weighted, axial T2 FLAIR, axial susceptibility weighted, and axial diffusion-weighted with ADC map images of the brain were obtained without intravenous contrast. After the administration of intravenous contrast axial and coronal fat-suppressed T1-weighted weighted images were obtained CONTRAST: 9.6ml iv Gadavist. FINDINGS: Diffusion weighted imaging is negative for acute abnormality. There are small scattered subcortical foci of T2 hyperintensity throughout the frontal and parietal lobes which may correspond with reported recent infarcts. There is no mass effect, midline shift, or intracranial hemorrhage. The ventricles are proportionate to the cerebral sulci. Diffusion and susceptibility weighted images are negative for acute/focal abnormality. Major intracranial vascular structures are within normal limits. Following the administration of contrast, there is a cortical/subcortical focus of tubular contrast enhancement in the left parietal lobe likely corresponding with dural AV fistula reported on outside cerebral angiogram report for 01/09/2024. No suspicious abnormality of the skull marrow signal. Clear paranasal sinuses. Mastoid air cells are clear. No focal abnormality of the pituitary gland, sella, skull base and upper cervical spinal structures on sagittal images. The orbits are normal. IMPRESSION: No acute infarct. Scattered subcortical foci of T2 hyperintensity and enhancement in the left frontal and parietal lobes are likely due to the reported subacute infarcts. I have personally reviewed the examination and initial interpretation and I agree with the findings. ANA LATHAM MD Airam Jay MD [facility] MRI ORDERABLES * MRA Brain ([place]) wo Contrast (01/20/2024 6:50 PM CDT) Anatomical Region Laterality Modality Head, SUBRAD MR NEURO, UMP MR NEURO, RAD MR Magnetic Resonance Impressions 01/20/2024 7:49 PM CDT IMPRESSION: No intracranial arterial aneurysm or stenosis. I have personally reviewed the examination and initial interpretation and I agree with the findings. 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 Outside CTA report for 01/09/2024 obtained through Care Everywhere. TECHNIQUE: Using a 3D [id number] image acquisition technique, MRA of the major arteries at the base of the brain was obtained without intravenous contrast. Three-dimensional reconstructions of the head MRA were created, which were reviewed by the radiologist. FINDINGS: The posterior communicating, anterior, middle, and posterior cerebral arteries are patent. No stenosis or occlusion of the arteries in the posterior fossa. No arterial aneurysm. No acute abnormality of the other imaged intracranial, paranasal sinus, orbital, and/or skull base structures. 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 Outside CTA report for 01/09/2024 obtained through Care Everywhere. TECHNIQUE: Using a 3D [id number] image acquisition technique, MRA of the major arteries at the base of the brain was obtained without intravenous contrast. Three-dimensional reconstructions of the head MRA were created, which were reviewed by the radiologist. FINDINGS: The posterior communicating, anterior, middle, and posterior cerebral arteries are patent. No stenosis or occlusion of the arteries in the posterior fossa. No arterial aneurysm. No acute abnormality of the other imaged intracranial, paranasal sinus, orbital, and/or skull base structures. IMPRESSION: No intracranial arterial aneurysm or stenosis. I have personally reviewed the examination and initial interpretation and I agree with the findings. ANA LATHAM MD Airam Jay MD [facility] MRI ORDERABLES * Troponin T, High Sensitivity (01/19/2024 11:55 PM CDT) [facility] Troponin T, High Sensitivity <6 <=14 ng/L 01/20/2024 12:29 AM CDT UR LAB[facility]ORY Comment: Either a High Sensitivity Troponin T baseline (0 hours) value = 100 ng/L, or an increase in High Sensitivity Troponin T = 7 ng/L at 2 hours compared to 0 hours (2-0 hours), suggests myocardial injury, and urgent clinical attention is required. ?? If the 2-0 hours increase is <7 ng/L, a High Sensitivity Troponin T result above gender-specific reference ranges warrants further evaluation. Recommendations for further evaluation include correlation with clinical decision-making tool (e.g., HEART), a 3rd High Sensitivity Troponin T test 2 hours after the 2nd (a 20% change from baseline would represent concern), admission for observation, close PCC/cardiology follow-up, or urgent outpatient provocative testing. Blood STRUCTURE OF RIGHT UPPER LIMB / Unknown Venipuncture / Unknown 01/19/2024 11:55 PM CDT 01/20/2024 12:01 AM CDT Len Camejo LAB - BLOOD ORDERABLES UR LAB[facility]ATORY [facility] [address] [place] [address], [address] [id number] * Lactic acid whole blood (01/19/2024 11:55 PM CDT) Lactic Acid 1.1 0.7 - 2.0 mmol/L 01/20/2024 12:03 AM CDT UR LAB[facility]ATORY Blood STRUCTURE OF RIGHT UPPER LIMB / Unknown Venipuncture / Unknown 01/19/2024 11:55 PM CDT 01/20/2024 12:01 AM CDT Len Camejo LAB - BLOOD ORDERABLES UR LAB[facility] [address] [place] [address], [address] [id number] * Extra Purple Top Tube (01/19/2024 11:54 PM CDT) Hold Specimen JIC 01/20/2024 1:04 AM CDT UR LAB[facility]ATORY Blood BLOOD SPECIMEN / Unknown Venipuncture / Unknown 01/19/2024 11:54 PM CDT 01/20/2024 12:03 AM CDT Luis Reynolds DO LAB - BLOOD ORDERABL ES UR LABORATORY [facility] [address] [place] [address], [address] [id number] * CT Head w/o Contrast (01/19/2024 10:34 PM CDT) Anatomical Region Laterality Modality Head, SUBRAD CT NEURO, SUBRA D CT NEURO, UMP CT NEURO, RAD CT Computed Tomography Impressions 01/20/2024 6:30 AM CDT IMPRESSION: No acute intracranial pathology. I have personally reviewed the examination and initial interpretation and I agree with the findings. ANA LATHAM MD Narrative 01/20/2024 6:30 AM CDT EXAM: CT HEAD W/O CONTRAST ??01/19/2024 10:34 PM HISTORY: ??concern for seizure in setting of left sigmoid dural AV fistula and recent ischemic stroke ?? COMPARISON: ??None available TECHNIQUE: Using multidetector thin collimation helical acquisition technique, axial, coronal and sagittal CT images from the skull base to the vertex were obtained without intravenous contrast. Fitness Manager (topogram) image(s) also obtained and reviewed. FINDINGS: No acute intracranial hemorrhage, mass effect, or midline shift. No acute loss of pollack-white matter differentiation in the cerebral hemispheres. Ventricles are proportionate to the cerebral sulci. Clear basal cisterns. No left sigmoid dural AV fistula is identified on this noncontrast examination. The bony calvaria and the bones of the skull base are normal. The visualized portions of the paranasal sinuses and mastoid air cells are clear. Grossly normal orbits. Procedure Note Ana Latham MD - 01/20/2024 EXAM: CT HEAD W/O CONTRAST 01/19/2024 10:34 PM HISTORY: concern for seizure in setting of left sigmoid dural AV fistula and recent ischemic stroke COMPARISON: None available TECHNIQUE: Using multidetector thin collimation helical acquisition technique, axial, coronal and sagittal CT images from the skull base to the vertex were obtained without intravenous contrast. Fitness Manager (topogram) image(s) also obtained and reviewed. FINDINGS: No acute intracranial hemorrhage, mass effect, or midline shift. No acute loss of pollack-white matter differentiation in the cerebral hemispheres. Ventricles are proportionate to the cerebral sulci. Clear basal cisterns. No left sigmoid dural AV fistula is identified on this noncontrast examination. The bony calvaria and the bones of the skull base are normal. The visualized portions of the paranasal sinuses and mastoid air cells are clear. Grossly normal orbits. IMPRESSION: No acute intracranial pathology. I have personally reviewed the examination and initial interpretation and I agree with the findings. ANA LATHAM MD Randy Kwon APRN [facility] IMG CT ORDERABLES * EKG 12-lead, complete (01/19/2024 10:33 PM CDT) Systolic Blood Pressure mmHg RADIOLOGY RESULTS Diastolic Blood Pressure mmHg RADIOLOGY RESULTS Ventricular Rate 84 BPM RAD IOLOGY RESULTS Atrial Rate 84 BPM RADIOLOG Y RESULTS DE Interval 168 ms RADIOLOG Y RESULTS QRS Duration 82 ms RADIOLO GY RESULTS QT 374 ms RADIOLOGY RESULTS QTc 441 ms RADIOLOGY RESULTS P [place] 30 degrees RADIOLOGY RESULTS R AXIS 36 degrees RADIOLOGY RESULTS T [place] -13 degrees RADIOLOGY RESULTS Interpretation ECG Sinus rhythm with frequent Premature ventricular complexes Abnormal ECG No previous ECGs available Confirmed by MD MAN JANE ([id number]) on 01/20/2024 9:02:28 AM RADIOLOGY RESULTS 01/19/2024 10:3 3 PM CDT 01/20/2024 9:02 AM CDT Randy Kwon APRN [facility] ECG ORDERABLES RADIOLOGY RESULTS * INR (01/19/2024 9:33 PM CDT) INR 0.87 0.85 - 1.15 01/19/2024 10:17 PM CDT UR LABORATORY Blood BLOOD SPECIMEN / Unknown Venipuncture / Unknown 01/19/2024 9:33 PM CDT 01/19/2024 9:54 PM CDT Randy Kwon APRN [facility] LAB - BLOOD ORDER NASRIN UR LABORATORY [facility] Acute Care Lab [address] [place] [address] * Prolactin (01/19/2024 9:33 PM CDT) Prolactin 22 5 - 23 ng/mL 01/19/2024 11:23 PM CDT [facility] LABORATORY Blood BLOOD SPECIMEN / Unknown Venipuncture / Unknown 01/19/2024 9:33 PM CDT 01/19/2024 9:54 PM CDT Randy Kwon APRN, CNP LAB - BLOOD ORDER NASRIN [facility] LABORATORY [facility] [place] [facility] [address] [facility] [address] [place] [address] * Partial thromboplastin time (01/19/2024 9:33 PM CDT) aPTT 25 22 - 38 Seconds 01/19/2024 10:18 PM CDT UR LABORATORY Blood BLOOD SPECIMEN / Unknown Venipuncture / Unknown 01/19/2024 9:33 PM CDT 01/19/2024 9:54 PM CDT Randy Kwon APRN, CNP LAB - BLOOD ORDER NASRIN UR LABORATORY [facility] Acute Care Lab [address] [place] [address], [facility] * Fibrinogen activity (01/19/2024 9:33 PM CDT) Fibrinogen Activity 417 170 - 490 mg/dL 01/19/2024 10:18 PM CDT UR LABORATORY Blood BLOOD SPECIMEN / Unknown Venipuncture / Unknown 01/19/2024 9:33 PM CDT 01/19/2024 9:54 PM CDT Randy Kwon APRN [facility] LAB - BLOOD ORDER NASRIN UR LABORATORY [facility] Acute Care Lab [address] [place] [address], [facility] * Extra Green Top ([place] Heparin) Tube (01/18/2024 5:40 AM CDT) Hold Specimen JIC 01/18/2024 7:32 AM CDT UR LABORATORY Blood STRUCTURE OF RIGHT UPPER LIMB / Unknown Venipuncture / Unknown 01/18/2024 5:40 AM CDT 01/18/2024 6:18 AM CDT Parminder Del Angel MD LAB - BLOOD ORDERABL ES UR LABORATORY [facility] Acute Care Lab [facility] * Platelet count - Routine (01/18/2024 5:40 AM CDT) Platelet Count 217 150 - 450 10e3/uL 01/18/2024 6:15 AM CDT UR LABORATORY Blood STRUCTURE OF RIGHT UPPER LIMB / Unknown Venipuncture / Unknown 01/18/2024 5:40 AM CDT 01/18/2024 6:13 AM CDT Parminder Del Angel MD LAB - BLOOD ORDERABL ES Performing Organization Address City/[facility]/ZIP Co de Phone Number UR LABORATORY [facility] Acute Care Lab [address] [place] [address], [address] * (ABNORMAL) Lipid panel reflex to direct LDL Fasting (07/27/2021 8:57 AM ALLERGIST/PEDIATRIC PULMONOLOGIST) Cholesterol 202(H) <200 mg/dL 07/28/2021 10:12 AM ALLERGIST/PEDIATRIC PULMONOLOGIST [facility] Triglycerides 91 <150 mg/dL 07/28/2021 10:12 AM ALLERGIST/PEDIATRIC PULMONOLOGIST [facility] Direct Measure HDL 56 >=50 mg/dL 07/28/2021 10:12 AM ALLERGIST/PEDIATRIC PULMONOLOGIST [facility] LDL Cholesterol Calculated 128(H) <=100 mg/dL 07/28/2021 10:12 AM ALLERGIST/PEDIATRIC PULMONOLOGIST [facility] Non HDL Cholesterol 146(H) <130 mg/dL 07/28/2021 10:12 AM ALLERGIST/PEDIATRIC PULMONOLOGIST [facility] Patient Fasting > 8hrs? Yes 07/28/2021 10:12 AM ALLERGIST/PEDIATRIC PULMONOLOGIST [facility] Blood STRUCTURE OF RIGHT UPPER LIMB / Unknown Venipuncture / Unknown 07/27/2021 8:57 AM ALLERGIST/PEDIATRIC PULMONOLOGIST 07/27/2021 8:57 AM ALLERGIST/PEDIATRIC PULMONOLOGIST Narrative OX LABORATORY - 07/28/2021 10:12 AM ALLERGIST/PEDIATRIC PULMONOLOGIST Cholesterol Desirable: ??<200 mg/dL Triglycerides Normal: ??Less [...] equal to 220 mg/dL Denise Woodson APRN [facility] LAB - BLOOD ORDERABLES [facility] Lab [address] Lab (no room number, 1st floor of clinic) [place] [address], [facility] [phone] * HEMOGRAM/PLATE/DIFF ([facility] ONLY) (11/08/2000 10:04 AM ALLERGIST/PEDIATRIC PULMONOLOGIST) WBC 6.9 4.3 - 11 thous/CU.MM [facility] RBC Count 4.92 4.6 - 11 Thous/CU.MM [facility] Hemoglobin 15.9 14 - 18 GM/DL [facility] Hematocrit 45.8 40 - 54 % [facility] MCV 93.0 80 - 94 FL [facility] MCH 32.3 26 - 33 pg [facility] MCHC 34.8 31 - 36 PERCENT [facility] Platelet Count 189 150 - 375 10^9/L [facility] % Granulocytes 65.6 [facility] % Lymphocytes 32.0 % [facility] % Monocytes 2.4 % [facility] 11/08/2000 10:0 4 AM ALLERGIST/PEDIATRIC PULMONOLOGIST Jasvir Munroe MD LABORATORY [facility] from Last 3 Months or Most Recently Relevant to Health Maintenance Advance Directives For more information, please contact: [phone] * Full Code (Latest Code Status on File) Date Activated Date Inactivated Comments 01/20/2024 12:22 AM All basic and advanced life-sustaining interventions are performed as appropriate Question Answer Comments Code status determined by: Discussion with ninfa nt/ legal decision maker * Full Code Date Activated Date Inactivated Comments 01/17/2024 1:19 PM 01/19/2024 11:16 PM All basic and advanced life-sustaining interventions are performed as appropriate Question Answer Comments Code status determined by: Discussion with ninfa nt/ legal decision maker Care Teams [id number] Consultant Relationship Specialty Start Date End Date Winston Villatoro OD [facility] [place] [address] [place] [address] PCP - Ophthalmology Ophthalmology 02/11/13 Denise Woodson Ra, APRN [facility] [id number] [address] [id number] PCP - General Family Practice 09/21/20 Denise Woodson Ra, APRN [facility] [address] [address] [id number] Assigned PCP 07/17/20
--- OUTSIDE RECORDS SUMMARY | 2024-01-21 14:20 | XMS_ITS ---
Author Name Unknown Organization [facility] Address [address] [place] [address] Care Team Providers Care Merchandise Shopper Name Role Phone Unavailable Unavailable Unavailable Surgery Details Not on file Complications Check Surgery Details section. Procedure Estimated Blood Loss Check Surgery Details section. Procedure Findings Check Surgery Details section. Procedure Specimens Taken Check Surgery Details section.
--- OUTSIDE RECORDS SUMMARY | 2024-01-21 14:20 | XMS_ITS | Referral Summary ---
Author Name Unknown Organization [facility] Address [address] [place] [address] Care Team Providers Care Casing Crew Name Role Phone Darius Shaw M.D. Primary Care Provider [phone] Source Comments Patient records contain information from all sites at [facility]. For routine questions regarding patient records, call [phone] during business hours, M-F 8:00 AM - 5:00 PM Central Time. Record requests for emergency care only can be directed to [phone] at any time.[facility] Allergies Active Allergy Reactions Criticality Noted [...] 007 Influenza, Unspecified 07/11/2017,2013,06/16/2013,2006 PPD Test 11/07/2011,10/08/2011 PPSV23 03/16/2004 Td (Adult), adsorbed 04/05/2003 Td, [...] week 01/10/2023 How often do you attend christianity or yazidism serv ices? Never 01/10/2023 Do you belong to any clubs o r organizations such as christianity groups, unions, fraternal or athletic groups, or [...] Answer Date Recorded PHQ-2 Score 3 01/10/2023 [facility] - Occupational Stress Questionnaire Answer Date Recorded [...] place to sleep or slept in a residential (including now)? No 01/10/2023 Depression Answer Date [...] on file Medical Devices Implanted Type Area Manufacturing Management Associate Device Identifier Shelf Expiration Date Model / Serial / Lot Mesh Or Patch Mesh or Patch Heart Description:Amplatzer Septal Occluder Asd Closure Device 34mm - [employer] [id number] Implanted:Qty: 1 on 06/20/2006 Septal Defect Occluder Device Other/Legacy - See Implant Description Description:Device Manufactu rer - [facility]. Device Status Text - [id number]. Procedures Procedure Name Priority Date/Time Associated Diagnosis Comments EXTI BASIC METABOLIC PANEL, FASTING, S Routine 01/20/2024 6:29 AM CDT BI BREAST SCREENING BILATERAL WITH TOMOSYNTHESIS RAD - Routine (most inpatients and all outpatients) 07/30/2023 2:38 PM PSYCHOLOGIST COUNSELING Screening Mammogram Breast Cancer COLOGUARD Routine 10/28/2022 5:54 PM PSYCHOLOGIST COUNSELING Screening Cancer Colon EXTI LIPID PANEL REFLEX TO DIRECT LDL Routine 07/27/2021 8:57 AM PSYCHOLOGIST COUNSELING from Last 3 Months or Most Recently Relevant to Health Maintenance Results * BI Breast Screening Bilateral with Tomosynthesis (07/30/2023 2:38 PM PSYCHOLOGIST COUNSELING) Anatomical Region Laterality Modality Breast, Breast Imaging RST L OS, Breast Imaging ARZ LOS, Breast Imaging FLA LOS Bilateral Mammography 08/01/2023 12:2 8 PM PSYCHOLOGIST COUNSELING Impressions 08/01/2023 12:33 PM PSYCHOLOGIST COUNSELING Negative. RECOMMENDATION: ??Annual Screening Mammogram ASSESSMENT: ??BI-RADS: 1: Negative. Narrative 08/01/2023 12:33 PM PSYCHOLOGIST COUNSELING EXAM: ??BI BREAST SCREENING BILATERAL WITH TOMOSYNTHESIS [...] ASSESSMENT: BI-RADS: 1: Negative. Darius Shaw M.D. [facility] BI PROCEDURES * Cologuard-Sent Out Lab (10/28/2022 5:54 PM PSYCHOLOGIST COUNSELING) Result Negative Negative 11/03/2022 2:48 AM PSYCHOLOGIST COUNSELING EXLI Comment: NEGATIVE TEST RESULT. A negative [...] Gates et al, N Engl J Med 2014;370(14):7135-6516) The normal value (reference range) for this assay is negative. COLOGUARD RE-SCREENING RECOMMENDATION: Periodic colorectal cancer screening is an important part of preventive healthcare for asymptomatic individuals at average risk for colorectal cancer. ??Following a negative Cologuard result, the [place] [employer] and U.S. Multi-Society Task Force screening guidelines recommend a Cologuard re-screening interval of 3 years. References: [place] [employer] Guideline for Colorectal Cancer Screening: https://www.cancer.org/cancer/xuejt-bpdnfd-kmuykl/detection- diagnosis-staging/acs-recommendations.html.; Ming MARTINEZ, Barbra TREJO, Erna SimsK, Colorectal Cancer Screening: Recommendations for Physicians and Patients from the U.S. Multi-Society Task Force on Colorectal Cancer Screening , Am J Gastroenterology 2017; 112:4997-5061. TEST DESCRIPTION: Composite algorithmic analysis of stool [...] (Yenny Adkins al, N Engl J Med 2014;370(14):4611-8662.) Cologuard may produce a false negative or false positive result (no colorectal cancer or precancerous polyp present at colonoscopy follow up). A negative Cologuard test result does not guarantee the absence of CRC or advanced adenoma (pre-cancer). The current Cologuard screening interval is every 3 years. ([place] [employer] and U.S. Multi-Society Task Force). Cologuard performance data in a 10,000 patient pivotal study using colonoscopy as the reference method can be accessed at the following location: www.[employer]/results. Additional description of the Cologuard test process, warnings and precautions can be found at www.[employer].com. Stool (Stool) 10/28/2022 5:5 4 PM PSYCHOLOGIST COUNSELING 10/30/2022 1:57 PM PSYCHOLOGIST COUNSELING Darius Shaw M.D. LAB BODY FLUIDS AND STOOLS ORDERABLES [employer] [address] [place] [address] [facility] [employer] [address] [facility], [address] [place] [address] from Last 3 Months or Most Recently Relevant to Health Maintenance Advance Directives For more information, please contact: [phone] * Full Code (Latest Code Status on File) Date Activated Date Inactivated Comments 09/30/2022 4:41 PM 10/02/2022 6:08 PM Question Answer Comments Full Code: Discussed Care Teams Casing Crew Relationship Specialty Start Date End Date Darius Shaw M.D. [address] [place] [phone] PCP - General Family Medicine 09/27/22
--- OUTSIDE RECORDS SUMMARY | 2024-01-21 14:20 | XMS_ITS | Clinical Summary ---
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 Cervical disc syndrome Fibromyalgia Encounters Date Type Department Care Team Description 01/21/2024 Telephone [facility] [address] [place] [address] Fercho Valladares MD Referral 01/15/2024 11:00 AM CDT Ancillary Procedure [facility] [place] [facility] [address] [place] [address] 01/15/2024 Office Visit [facility] [address] [place] [phone] Bette Mantilla MD Telehealth ([facility]) 01/15/2024 Travel 01/14/2024 Office Visit [facility] [address] [place] [phone] Bette Mantilla MD Telehealth ([facility]) 01/14/2024 Telephone [facility] [address] [place] [address] Fercho Valladares MD Referral 01/14/2024 Office Visit [facility] [address] [place] [phone] Roshni Molina MD Telehealth ([facility]) 01/13/2024 Telephone [facility] [address] [place] [address] Anastasia Walden NP Error-please disregard 01/13/2024 Telephone [facility] [address] [place] [address] Anastasia Walden NP Questions 01/10/2024 Orders Only [facility] [address] [place] [address] Timoteo Gutierrez MD <No scans attached> 01/10/2024 Telephone [facility] [address] [place] [address] Aby Saxena NP Follow Up 01/09/2024 1:20 PM CDT - 01/09/2024 3:30 PM CDT Hospital Encounter [facility] [address] [place] [address] Timoteo Gutierrez MD AVF (arteriovenous fistula) (HC) (Primary Dx); Tinnitus, left ear; Headache Discharge Disposition: Home Self Care 01/09/2024 Travel from Last 3 Months Immunizations Name Administration Dates Next Due COVID-19 vaccine ([employer] Oncology 30mcg/0.3mL) CORKY ROSARIO 07/07/2021 Hepatitis B, Unspecified [...] for age 45-75 2021 COVID-19 vaccine series (2022- season) 2023 07/07/2021, 11/20/2020 BMI (ht and [...] Procedure Name Priority Date/Time Associated Diagnosis Comments ECHO TTE COMPLETE W CONTRAST W BUBBLE Routine 01/15/2024 12:28 PM CDT CVA (cerebral vascular accident) (HC) CT ANGIO HEAD AND NECK CAROTID STAT 01/09/2024 12:02 PM CDT IR ANGIO CAROTID CEREBRAL BILATERAL Routine 01/09/2024 9:16 AM CDT Tinnitus, left ear Headache LIPID PANEL W REFLEX MEASURED LDL Routine 08/03/2011 10:31 AM INDUSTRIAL GAS FITTER Screening for other and unspecified cardiovascular conditions from Last 3 Months or Most Recently Relevant to Health Maintenance Results * ECHO TTE COMPLETE W CONTRAST W BUBBLE (01/15/2024 12:28 PM CDT) AORTIC VALVE MEAN PG 4 mmHg EJECTION FRACTION 43 % LVEDD 4.8 cm EJECTION FRACTION 55 - 60% Anatomical Region Laterality Modality Ultrasound 01/15/2024 11:2 7 AM CDT Narrative 01/15/2024 1:17 PM CDT ECHOCARDIOGRAM CHRISTOPHER TY ?Accession#: ?? [id number] : ?1975 48 years Study Date: ?? 01/15/2024 11:27:48 AM Gender: F ? BP: ? 154/84 mmHg Height: 173.00 cm ? BSA: ?2.09 m? ? ? Weight: 95.00 kg ?Tech: ? MSR ?Referring MD: HANG BERGERON Site: ? [facility] Reading Location: Mobile STAT Patient Location: Inpatient. Procedure: 2D w/ Bubbles, 2D w/ Contrast, Color Doppler and Spectral Doppler. Indication for study: CVA Cardiac Rhythm: Regular.Study quality: Technically limited. Final Impressions: 1. Technically limited exam. 2. Normal LV size, normal wall thickness, normal global systolic function with an estimated EF of 55 - 60%. 3. The mitral valve is normal, mild mitral regurgitation. 4. Echo contrast was administered to enhance visualization of all left ventricular segments. Chamber Sizes and Function Normal left ventricular size, normal wall thickness, normal global systolic function with an estimated EF of 55 - 60%. Left atrial size is normal. Left atrial pressure is normal. Right ventricular cavity size is normal, global systolic RV function is normal. RV wall thickness is normal. The right atrium is normal. The pulmonary artery is of normal size and origin. The sinus of Valsalva is normal sized. The ascending aorta is normal sized. Valves, RV Pressures and Diastolic Function The aortic valve is normal in structure and trileaflet, no stenosis and no regurgitation. The mitral valve is normal in structure, mild mitral regurgitation. Normal diastolic function. The tricuspid valve is normal in structure. Tricuspid regurgitation is mild regurgitation. Unable to assess right ventricular systolic pressure. The pulmonic valve is normal. No pulmonary regurgitation. Masses, Effusion, Shunts There is no pericardial effusion. The inferior vena cava is normal sized, respiratory size variation greater than 50%. No left to right shunting was detected by limited color flow Doppler interrogation of the interatrial septum. MEASUREMENTS AND CALCULATIONS 2-D Measurements and LV Function: LVID (d) 4.8 cm LV FS% (2D) ?? 32 % LVID (s) 3.3 cm LVOT diameter 2.2 cm IVS (d) ??1.0 cm HR ?78 bpm LVPW (d) 1.0 cm LA Vol index ??28 ml/m2 Ao Sinus 2.9 cm RV Max 4C (d) 3.1 cm Asc Ao ?? 3.0 cm Diastology: Mitral ?Tissue Doppler E Peak 0.7 m/s ??e', Septum ? 0.06 m/s A Peak 0.9 m/s ??e', Lateral ?0.12 m/s E/A ?0.8 ?E/e' Average ?? 7.85 DT ? 206 msec Aortic Valve: Vmax ? 1.3 m/s ??HANNA (V) ?? 2.99 cm? ? ? VTI ?0.30 m ?? HANNA (I) ?? 2.64 cm? ? ? LVOT V max 1.1 m/s ??Max PG ?7 mmHg LVOT VTI ?? 0.22 m ?? Mean PG ?? 4 mmHg SV ? 81 ml ?Dim Index 0.73 SV index ?? 39 ml/m? ? ? CO ?6.3 l/min ?CI ?3.0 l/min/m? ? ? Mitral Valve: MVA ?3.7 cm? ? ? MV P 1/2 60 msec Tricuspid Valve and estimated PA pressures: TAPSE 2.4 cm Contrast documentation: 3.5 ml diluted Definity, lot #[id number], [facility]# [id number] was administered peripherally to enhance visualization of all left ventricular segments. . This study was interpreted by an [facility] accredited facility. CC: HIM (med records) [facility], Med/Surg - IP [facility]. ??Final ?? Procedure Note Dillan Garcia MD - 01/15/2024 ECHOCARDIOGRAM CHRISTOPHER TY : 1975 48 years Study Date: 01/15/2024 11:27:48 AM Gender: F BP: 154/84 mmHg Height: 173.00 cm BSA: 2.09 m? ? ? Weight: 95.00 kg Tech: JUANJO Referring MD: HANG BERGERON Site: [facility] Reading Location: Mobile STAT Patient Location: Inpatient. Procedure: 2D w/ Bubbles, 2D w/ Contrast, Color Doppler and SpectralDoppler. Indication for study: CVA Cardiac Rhythm: Regular.Study quality: Technically limited. Final Impressions: 1. Technically limited exam. 2. Normal LV size, normal wall thickness, normal global systolic functionwith an estimated EF of 55 - 60%. 3. The mitral valve is normal, mild mitral regurgitation. 4. Echo contrast was administered to enhance visualization of all leftventricular segments. Chamber Sizes and Function Normal left ventricular size, normal wall thickness, normal globalsystolic function with an estimated EF of 55 - 60%. Left atrial size isnormal. Left atrial pressure is normal. Right ventricular cavity size isnormal, global systolic RV function is normal. RV wall thickness isnormal. The right atrium is normal. The pulmonary artery is of normal sizeand origin. The sinus of Valsalva is normal sized. The ascending aorta isnormal sized. Valves, RV Pressures and Diastolic Function The aortic valve is normal in structure and trileaflet, no stenosis and noregurgitation. The mitral valve is normal in structure, mild mitralregurgitation. Normal diastolic function. The tricuspid valve is normal instructure. Tricuspid regurgitation is mild regurgitation. Unable to assessright ventricular systolic pressure. The pulmonic valve is normal. Nopulmonary regurgitation. Masses, Effusion, Shunts There is no pericardial effusion. The inferior vena cava is normal sized,respiratory size variation greater than 50%. No left to right shunting wasdetected by limited color flow Doppler interrogation of the interatrialseptum. MEASUREMENTS AND CALCULATIONS 2-D Measurements and LV Function: LVID (d) 4.8 cm LV FS% (2D) 32 % LVID (s) 3.3 cm LVOT diameter 2.2 cm IVS (d) 1.0 cm HR 78 bpm LVPW (d) 1.0 cm LA Vol index 28 ml/m2 Ao Sinus 2.9 cm RV Max 4C (d) 3.1 cm Asc Ao 3.0 cm Diastology: Mitral Tissue Doppler E Peak 0.7 m/s e', Septum 0.06 m/s A Peak 0.9 m/s e', Lateral 0.12 m/s E/A 0.8 E/e' Average 7.85 DT 206 msec Aortic Valve: Vmax 1.3 m/s HANNA (V) 2.99 cm? ? ? VTI 0.30 m HANNA (I) 2.64 cm? ? ? LVOT V max 1.1 m/s Max PG 7 mmHg LVOT VTI 0.22 m Mean PG 4 mmHg SV 81 ml Dim Index 0.73 SV index 39 ml/m? ? ? CO 6.3 l/min CI 3.0 l/min/m? ? ? Mitral Valve: MVA 3.7 cm? ? ? MV P 1/2 60 msec Tricuspid Valve and estimated PA pressures: TAPSE 2.4 cm Contrast documentation: 3.5 ml diluted Definity, lot #[id number], [facility]#[id number] was administered peripherally to enhance visualization of allleft ventricular segments. . This study was interpreted by an [facility] accredited facility. CC: HIM (med records) [facility], [facility]/Surg - IP [facility]. Final Hang Bergeron DO ECHO ORD * CT ANGIO HEAD AND NECK CAROTID [...] For Patients: As a result of the Century Cures Act, medical imagingexams and procedure [...] 01/09/2024 1:12:05 PM (Electronically Signed) Anastasia Walden OUTCOMES ANALYST CT * IR ANGIO CAROTID CEREBRAL BILATERAL [...] of the examination. Timoteo Gutierrez M.D. Neurointerventionalist [facility] Pager: Office/Appointments: Answering Service: [facility]: [email or web address] Narrative 01/09/2024 9:57 AM CDT PHYSICIAN: Timoteo Gutierrez DATE: 01/09/2024. PROCEDURE: CEREBRAL ANGIOGRAM Selective catheter placement, right internal carotid artery, with angiography of the intracranial carotid circulation (CPT 88332) Selective catheter placement, right external carotid artery, with angiography of the external carotid circulation (CPT +82475) Selective catheter placement, left internal carotid artery, with angiography of the intracranial carotid circulation (CPT 66031) Selective catheter placement, left external carotid artery, with angiography of the external carotid circulation (CPT +08637) Selective catheter placement, right vertebral artery, with angiography of the vertebral circulation (CPT 77865) Selective catheter placement, left vertebral artery, with angiography of the vertebral circulation (CPT 42917) Ultrasound guidance for vascular access: right radial artery access (CPT +24077) Monitored conscious sedation: 50min (CPT 24123, CPT +06501 x2) CLINICAL HISTORY: 48 year-old female with [...] right radial percutaneous arterial puncture and a 5-Pashto sheath was placed. After infusion of a heparin, verapamil and nitroglycerin cocktail via the sheath, contrast was then injected via the sheath to assess the arterial anatomy in the right forearm. Subsequently using a 5-Pashto angled tip catheter and glidewire combination, selective [...] The anterior communicating artery is ??opacified from [id number]. The capillary, venous, and venous sinus phases [...] ??The anterior communicating artery is opacified from [id number]. Right vertebral artery injection: There is normal [...] W REFLEX MEASURED LDL (08/03/2011 10:31 AM INDUSTRIAL GAS FITTER) CHOLESTEROL,TOTAL 171 110 - 199 mg/dL [facility] TRIGLYCERIDES 67 <150 mg/dL [facility] HDL CHOLESTEROL 43 >40 mg/dL [facility] CHOL/HDL RATIO 3.98 <4.51 [facility] LDL CHOLESTEROL 115 <131 mg/dL [facility] PATIENT STATUS Fasting [facility] Blood specimen (specimen) BLOOD SPECIMEN / Unknown 08/03/2011 10:31 AM INDUSTRIAL GAS FITTER 08/03/2011 10:23 AM INDUSTRIAL GAS FITTER Jasvir Pickens MD CHEMISTRY [facility] [address] [place] [address] from Last 3 Months or Most Recently Relevant to Health Maintenance Advance Directives * Full Code (Latest Code Status on File) Date Activated Date Inactivated Comments 01/09/2024 7:44 AM 01/09/2024 6:26 PM Question Answer Comments Code Status Discussion: Reviewed Preferences Care Teams Mems Integration Engineer Relationship Specialty Start Date End Date Keira Irvin MD [address] [place] [address] PCP - General Family Practice 01/08/24
--- OUTSIDE RECORDS SUMMARY | 2024-01-21 14:20 | XMS_ITS | Clinical Summary ---
Author Name Unknown Organization [facility] Address [address] [place] [address] Care Team Providers Care Women'S Studies Professor Name Role Phone Darius Shaw M.D. Primary Care Provider [phone] Source Comments Patient records contain information from all sites at [facility]. For routine questions regarding patient records, call [phone] during business hours, M-F 8:00 AM - 5:00 PM Central Time. Record requests for emergency care only can be directed to [phone] at any time.[facility] Allergies Active Allergy Reactions Criticality Noted [...] week 01/10/2023 How often do you attend anglican or congregation serv ices? Never 01/10/2023 Do you belong to any clubs o r organizations such as anglican groups, unions, fraternal or athletic groups, or [...] 01/10/2023 [facility] - Occupational Stress Questionnaire Answer Date [...] place to sleep or slept in a mcfp (including now)? No 01/10/2023 Depression Answer Date [...] Questionnaire (AMQ/AEQ) 01/11/2024 01/10/2023 Mammogram 07/30/2024 07/30/2023, 07/17, 05/01/2022 (Performed elsewhere), Additional history exists Cologuard 10/28/2025 10/28/2022 Colorectal Cancer Screening 10/28/2025 Lipid (Cholesterol) Screening 07/27/2026, 07/27/2020, 02/13/2018, Additional history exists Fasting Glucose for Diabetes Screening 01/19/2027 01/20/2024, 01/19/2024, 09/30/2022, Additional history exists DTaP,Tdap,and Td Vaccines (3 - Td or Tdap) 01/04/2031 01/04/2021, 01/26/2011, 04/05/2003, Additional history exists Hepatitis B Vaccines Completed 03/03/2012, 11/07/2011, 10/04/2011 Medical Devices Implanted Type Area Vp [employer] Device Identifier Shelf Expiration Date Model / Serial / Lot Mesh Or Patch Mesh or Patch Heart Description:Amplatzer Septal Occluder Asd Closure Device 34mm - [place] [id number] Implanted:Qty: 1 on 06/20/2006 Septal Defect Occluder Device Other/Legacy - See Implant Description Description:Device Manufactu [facility]. Device Status Text - [id number]. Procedures Procedure Name Priority Date/Time Associated Diagnosis Comments EXTI BASIC METABOLIC PANEL, FASTING, S Routine 01/20/2024 6:29 AM CDT BI BREAST SCREENING BILATERAL WITH TOMOSYNTHESIS RAD - Routine (most inpatients and all outpatients) 07/30/2023 2:38 PM KETTLE HAND Screening Mammogram Breast Cancer COLOGUARD Routine 10/28/2022 5:54 PM KETTLE HAND Screening Cancer Colon EXTI LIPID PANEL REFLEX TO DIRECT LDL Routine 07/27/2021 8:57 AM KETTLE HAND from Last 3 Months or Most Recently Relevant to Health Maintenance Results * BI Breast Screening Bilateral with Tomosynthesis (07/30/2023 2:38 PM KETTLE HAND) Anatomical Region Laterality Modality Breast, Breast Imaging RST L OS, Breast Imaging ARZ LOS, Breast Imaging FLA LOS Bilateral Mammography 08/01/2023 12:2 8 PM KETTLE HAND Impressions 08/01/2023 12:33 PM KETTLE HAND Negative. RECOMMENDATION: ??Annual Screening Mammogram ASSESSMENT: ??BI-RADS: 1: Negative. Narrative 08/01/2023 12:33 PM KETTLE HAND EXAM: ??BI BREAST SCREENING BILATERAL WITH TOMOSYNTHESIS [...] * Cologuard-Sent Out Lab (10/28/2022 5:54 PM KETTLE HAND) Result Negative Negative 11/03/2022 2:48 AM JACKIE KEITH Comment: NEGATIVE TEST RESULT. A negative Cologuard [...] Melchor. et al, N Engl J Med 2014;370(14):2388-7358) The normal value (reference range) for this assay is negative. COLOGUARD RE-SCREENING RECOMMENDATION: Periodic colorectal cancer screening is an important part of preventive healthcare for asymptomatic individuals at average risk for colorectal cancer. ??Following a negative Cologuard result, the [place] Cancer Society and U.S. Multi-Society Task Force screening guidelines recommend a Cologuard re-screening interval of 3 years. References: [place] [employer] Guideline for Colorectal Cancer Screening: https://www.cancer.org/cancer/gqmsr-fitqpl-srqbqo/detection- diagnosis-staging/acs-recommendations.html.; Ming MARTINEZ, Barbra TREJO, Erna SimsK, Colorectal Cancer Screening: Recommendations for Physicians and Patients from the U.S. Multi-Society Task Force on Colorectal Cancer Screening , Am J Gastroenterology 2017; 112:5033-2575. TEST DESCRIPTION: Composite algorithmic analysis of stool [...] Gates et al, N Engl J Med 2014;370(14):4999-7940.) Cologuard may produce a false negative or false positive result (no colorectal cancer or precancerous polyp present at colonoscopy follow up). A negative Cologuard test result does not guarantee the absence of CRC or advanced adenoma (pre-cancer). The current Cologuard screening interval is every 3 years. ([place] Cancer Society and U.S. Multi-Society Task Force). Cologuard performance data in a 10,000 patient pivotal study using colonoscopy as the reference method can be accessed at the following location: www.[employer]/results. Additional description of the Cologuard test process, warnings and precautions can be found at www.[employer].com. Stool (Stool) 10/28/2022 5:5 4 PM KETTLE HAND 10/30/2022 1:57 PM KETTLE HAND Darius Shaw M.D. LAB BODY FLUIDS AND STOOLS ORDERABLES [employer] [address] [place] [address] [employer] [address] [facility], [address] [place] [address] from Last 3 Months or Most Recently Relevant to Health Maintenance Advance Directives For more information, please contact: [phone] * Full Code (Latest Code Status on File) Date Activated Date Inactivated Comments 09/30/2022 4:41 PM 10/02/2022 6:08 PM Question Answer Comments Full Code: Discussed Care Teams Women'S Studies Professor Relationship Specialty Start Date End Date Darius Shaw M.D. [address] [place] [phone] PCP - General Family Medicine 09/27/22
--- OUTSIDE RECORDS SUMMARY | 2024-01-21 14:21 | XMS_ITS | Encounter Summary ---
Author Name Unknown Organization [facility] Address [address] [place] [address] Care Team Providers Care Butadiene Converter Utility Operator Name Role Phone Yung Madrigal MD Unavailable Unavailable Winston Villatoro OD Unavailable [phone] Denise Woodson Ra, APRN AUGER SUPERVISOR Unavailable + [phone] Denise Woodson Ra, APRN AUGER SUPERVISOR Primary Care Provid er Encounter Details Date Type Department Care Team (Late Contact Info) Description 01/22/2022 MyC Medical Advice [facility] [address] [place] [address] Angelo Escobar Social History Tobacco [...] Department Care Team (Late Contact Info) Description 03/23/2024 10:30 AM CDT [facility] [address] [phone] Denise Woodson Ra, BARRERA AUGER SUPERVISOR [address] [place] [address] documented as of this encounter Visit Diagnoses Not on filedocumented in this encounter Additional Health Concerns Assessment Noted Time PHQ-9 Depression Total Score: 0 06/23/20 21 4:11 PM CDT documented as of this encounter Care Teams Butadiene Converter Utility Operator Relationship Specialty Start Date End Date Yung Madrigal MD RETIRED PCP - Orthopaedics Orthopedics 08/26/12 01/20/24 Winston Villatoro OD [facility] [place] [address] [place] [address] PCP - Ophthalmology Ophthalmology 02/11/13 Denise Woodson Ra, APRN AUGER SUPERVISOR [address] [place] [address] PCP - General Family Practice 09/21/20 Denise Woodson Ra, APRN AUGER SUPERVISOR [address] [place] [address] Assigned PCP 07/17/20 documented as of this encounter
--- OUTSIDE RECORDS SUMMARY | 2024-01-21 14:21 | XMS_ITS | Encounter Summary ---
Author Name Unknown Organization [facility] Address [address] [place] [address]. [place] [address] Care Team Providers Care Back Feeder Plywood Layup Line Name Role Phone Yung Madrigal MD Unavailable Unavailable Winston Villatoro OD Unavailable Denise Woodson Ra, APRN INTERNAL MEDICINE PHYSICIAN Unavailable Denise Woodson Ra, APRN INTERNAL MEDICINE PHYSICIAN Primary Care Provid er Reason for Visit * Reason Comments Medication Refill Encounter Details Date Type Department Care Team (Late st Contact Info) Description [facility] [address] [place] [address] Denise Woodson Ra, APRN INTERNAL MEDICINE PHYSICIAN [address] [place] [address] Medication Refill Social History Tobacco [...] as final attempt to schedule. Karla Velasquez Asphalt Tile Floor Layer * Telephone Encounter - Karla Morales - 01/17/2023 8:59 AM CDT LVM requesting a call back for an appt (physical). One more attempt will be made. Karla Morales [place] Asphalt Tile Floor Layer * Telephone Encounter - Arianna Lo - 01/10/2023 3:33 PM CDT Sent Dianwoba message requesting a call back for an appt. Two more attempts will be made. Arianna Lo [place] Asphalt Tile Floor Layer * Telephone Encounter - Leslie Mcclellan RN [...] 0 0 0 Leslie Mcclellan RN, BSN [facility] documented in this encounter Plan of Treatment Upcoming Encounters Date Type Department Care Team (Late st Contact Info) Description 03/23/2024 10:30 AM CDT Office Visit [facility] [address] [place] [address] Denise Woodson Ra, PIPE FITTER MARINE INTERNAL MEDICINE PHYSICIAN [address] [place] [address] documented as of this encounter Visit Diagnoses Diagnosis Moderate persistent asthma without complication Unspecified asthma documented in this encounter Additional Health Concerns Assessment Noted Time PHQ-9 Depression Total Score: 0 06/23/20 21 4:11 PM CDT documented as of this encounter Care Teams Back Feeder Plywood Layup Line Relationship Specialty Start Date End Date Yung Madrigal MD RETIRED PCP - Orthopaedics Orthopedics 08/26/12 01/20/24 Winston Villatoro OD [facility] [place] [address] [place] [address] PCP - Ophthalmology Ophthalmology 02/11/13 Denise Woodson Ra, BARRERA INTERNAL MEDICINE PHYSICIAN [address] [address] [place] [address] PCP - General Family Practice 09/21/20 Denise Woodson Ra, APRN INTERNAL MEDICINE PHYSICIAN [address] [place] [address] Assigned PCP 07/17/20 documented as of this encounter
--- OUTSIDE RECORDS SUMMARY | 2024-01-21 14:21 | XMS_ITS | Encounter Summary ---
Author Name Unknown Organization [facility] Address [address] [place] [address] Care Team Providers Care Plating Department Helper Name Role Phone Yung Madrigal MD Unavailable Unavailable Winston Villatoro OD Unavailable [phone] Denise Woodson Ra, APRN RN BONE MARROW TRANSPLANT Unavailable + [phone] Denise Woodson Ra, APRN RN BONE MARROW TRANSPLANT Primary Care Provid er Encounter Details Date Type Department Care Team (Late Contact Info) Description 12/30/2020 [facility] [address] [place] [address] Jessica Phipps, BIBI Social History [...] Description 03/23/2024 10:30 AM CDT Office Visit [facility] [place] [address] [place] [address] Denise Woodson Ra, APRN RN BONE MARROW TRANSPLANT [address] [place] [id number] documented as of this encounter Visit Diagnoses Not on filedocumented in this encounter Additional Health Concerns Assessment Noted Time PHQ-9 Depression Total Score: 0 06/15/20 19 7:09 PM CDT documented as of this encounter Care Teams Plating Department Helper Relationship Specialty Start Date End Date Yung Madrigal MD RETIRED PCP - Orthopaedics Orthopedics 08/26/12 01/20/24 Winston Villatoro OD [facility] [place] [address] [facility] [address] [place] [address] PCP - Ophthalmology Ophthalmology 02/11/13 Denise Woodson Ra, APRN RN BONE MARROW TRANSPLANT [address] [place] [address] PCP - General Family Practice 09/21/20 Denise Woodson Ra, APRN RN BONE MARROW TRANSPLANT [address] [place] [id number] Assigned PCP 07/17/20 documented as of this encounter
--- OUTSIDE RECORDS SUMMARY | 2024-01-21 14:21 | XMS_ITS | Encounter Summary ---
Author Name Unknown Organization [place] Address [address] [place] [address]. [place] [address] Care Team Providers Care Solar Pv Installer Name Role Phone Yung Madrigal MD Unavailable Unavailable Winston Villatoro OD Unavailable Denise Woodson Ra, APRN HAIR OR BEAUTY SALON MANAGER Unavailable Denise Woodson Ra, APRN HAIR OR BEAUTY SALON MANAGER Primary Care Provid er Encounter Details Date Type Department Care Team (Late st Contact Info) Description 06/13/2021 [facility] Medical Advice [facility] [address] [place] [address] Denise Woodson Ra, APRN HAIR OR BEAUTY SALON MANAGER [address] [place] [address] Insomnia, unspecified type Social History [...] a refill on file. Prescription approved per [facility] protocol. Mary Caraballo RN on 06/13/2021 at 5:18 PM documented in this encounter Plan of Treatment Upcoming Encounters Date Type Department Care Team (Late st Contact Info) Description 03/23/2024 10:30 AM CDT [facility] [address] [place] [address] Denise Woodson Ra, CHEESE COOKER HAIR OR BEAUTY SALON MANAGER [address] [place] [address] documented as of this encounter Visit Diagnoses Diagnosis Insomnia, unspecified type documented in this encounter Additional Health Concerns Assessment Noted Time PHQ-9 Depression Total Score: 0 01/05/20 9:31 AM CDT documented as of this encounter Care Teams Solar Pv Installer Relationship Specialty Start Date End Date Yung Madrigal MD RETIRED PCP - Orthopaedics Orthopedics 08/26/12 01/20/24 Winston Villatoro OD [facility] [place] [address] [place] [address] PCP - Ophthalmology Ophthalmology 02/11/13 Denise Woodson Ra, BARRERA HAIR OR BEAUTY SALON MANAGER [address] [place] [address] PCP - General Family Practice 09/21/20 Denise Woodson Ra, APRN HAIR OR BEAUTY SALON MANAGER [address] [place] [address] Assigned PCP 07/17/20 documented as of this encounter
--- OUTSIDE RECORDS SUMMARY | 2024-01-21 14:21 | XMS_ITS | Encounter Summary ---
Author Name Unknown Organization [place] Address [address] [place] [address]. [place] [address] Care Team Providers Care Talent Acquisition Specialist Name Role Phone Yung Madrigal MD Unavailable Unavailable Winston Villatoro OD Unavailable Denise Woodson Ra, APRN MOLDING PLASTERER Unavailable + [phone] Denise Woodson Ra, APRN MOLDING PLASTERER Primary Care Provid er Reason for Visit * Reason Comments Medication Refill Encounter Details Date Type Department Care Team (Late st Contact Info) Description 02/19/2022 Refill [facility] [address] [place] [address] Denise Woodson Ra, APRN MOLDING PLASTERER [address] [place] [address] Medication Refill Social History Tobacco [...] 03/23/2024 10:30 AM CDT Office [facility] [address] [address] [address] [address] Denise Woodson Ra, CHIMNEY SWEEPER MOLDING PLASTERER [address] [address] [place] [id number] documented as of this encounter Visit Diagnoses Diagnosis Moderate persistent asthma without complication Unspecified asthma documented in this encounter Additional Health Concerns Assessment Noted Time PHQ-9 Depression Total Score: 0 06/23/20 21 4:11 PM CDT documented as of this encounter Care Teams Talent Acquisition Specialist Relationship Specialty Start Date End Date Yung Madrigal MD RETIRED PCP - Orthopaedics Orthopedics 08/26/12 01/20/24 Winston Villatoro OD [facility] [place] [address] [facility] [address] [place] [address] PCP - Ophthalmology Ophthalmology 02/11/13 Denise Woodson Ra, APRN MOLDING PLASTERER [address] [place] [address] PCP - General Family Practice 09/21/20 Denise Woodson Ra, APRN MOLDING PLASTERER [address] [place] [address] Assigned PCP 07/17/20 documented as of this encounter
--- OUTSIDE RECORDS SUMMARY | 2024-01-21 14:21 | XMS_ITS | Encounter Summary ---
Author Name Unknown Organization [place] Address [address] [place] [address]. [place] [address] Care Team Providers Care Provisioning Analyst Name Role Phone Yung Madrigal MD Unavailable Unavailable Winston Villatoro OD Unavailable [phone] Denise Woodson Ra, APRN WET CHEMISTRY ANALYST Unavailable Denise Woodson Ra, APRN WET CHEMISTRY ANALYST Primary Care Provid er Reason for Visit * Reason Onset Date Comments Medication Request 04/20/2021 escitalopram (LEXAPRO) 10 MG tablet Encounter Details Date Type Department Care Team (Late st Contact Info) Description 04/20/2021 MyC Medical Advice [facility] [address] [place] [address] Denise Woodson Ra, APRN WET CHEMISTRY ANALYST [address] [place] [address] Medication Request (escitalopram (LEXAPRO)... 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, recurrent episode, mild documented in this encounter Additional Health Concerns Assessment Noted Time PHQ-9 Depression Total Score: 0 01/05/20 21 9:31 AM CDT documented as of this encounter Care Teams Provisioning Analyst Relationship Specialty Start Date End Date Yung Madrigal MD RETIRED PCP - Orthopaedics Orthopedics 08/26/12 01/20/24 Winston Villatoro OD [facility] [place] [address] [place] [address] PCP - Ophthalmology Ophthalmology 02/11/13 Denise Woodson Ra, APRN WET CHEMISTRY ANALYST [address] [place] [place] [address] PCP - General Family Practice 09/21/20 Denise Woodson Ra, APRN WET CHEMISTRY ANALYST [address] [address] [place] [address] Assigned PCP 07/17/20 documented as of this encounter
--- OUTSIDE RECORDS SUMMARY | 2024-01-21 14:21 | XMS_ITS | Encounter Summary ---
Author Name Unknown Organization [place] Address [address] [place] [address]. [place] [address] Care Team Providers Care General Medical Practitioner Name Role Phone Yung Madrigal MD Unavailable Unavailable Winston Villatoro OD Unavailable [phone] Denise Woodson Ra, APRN PIG CASTING MACHINE OPERATOR Unavailable + [phone] Denise Woodson Ra, APRN PIG CASTING MACHINE OPERATOR Primary Care Provid er Reason for Visit * Reason Onset Date Comments URI 09/21/2020 Encounter Details Date Type Department Care Team (Late st Contact Info) Description 09/21/2020 [facility] [place] [facility] [address] [place] [address] Denise Woodson Ra, APRN PIG CASTING MACHINE OPERATOR [address] [place] [address] URI Social History Tobacco Use [...] COVID-19? No / Unsure 09/21/2020 12:04 PM UNDERWRITER MORTGAGE LOAN documented as of this encounter Miscellaneous Notes * Telephone Encounter - Kati Yang RN - 09/21/2020 10:54 AM CST [employer] message sent to patient. Kati Yang RN RWRITER MORTGAGE LOAN documented in this encounter Plan of Treatment Upcoming Encounters Date Type Department Care Team (Late st Contact Info) Description 03/23/2024 10:30 AM CDT Office Visit [facility] [address] [place] [address] Denise Woodson Ra, ROLL FINISHER PIG CASTING MACHINE OPERATOR [address] [address] [place] [id number] documented as of this encounter Visit Diagnoses Not on filedocumented in this encounter Additional Health Concerns Assessment Noted Time PHQ-9 Depression Total Score: 0 06/15/20 19 7:09 PM CDT documented as of this encounter Care Teams General Medical Practitioner Relationship Specialty Start Date End Date Yung Madrigal MD RETIRED PCP - Orthopaedics Orthopedics 08/26/12 01/20/24 Winston Villatoro OD [facility] [place] [address] [facility] [address] [place] [address] PCP - Ophthalmology Ophthalmology 02/11/13 Denise Woodson Ra, APRN PIG CASTING MACHINE OPERATOR [address] [place] [address] PCP - General Family Practice 09/21/20 Denise Woodson Ra, APRN PIG CASTING MACHINE OPERATOR [address] [place] [address] Assigned PCP 07/17/20 documented as of this encounter
--- OUTSIDE RECORDS SUMMARY | 2024-01-21 14:21 | XMS_ITS | Encounter Summary ---
Author Name Unknown Organization [place] Address [address] [place] [address]. [place] [address] Care Team Providers Care Turkish Line Attendant Name Role Phone Yung Madrigal MD Unavailable Unavailable Winston Villatoro OD Unavailable Denise Woodson Ra, APRN SEWING INSPECTOR Unavailable Denise Woodson Ra, APRN SEWING INSPECTOR Primary Care Provid er Reason for Visit * Reason Onset Date Comments MyChart Communication 06/08/2021 Abdominal pain Encounter Details Date Type Department Care Team (Late Contact Info) Description 06/08/2021 MyC Medical Advice [facility] [place] [address] [place] [address] Denise Woodson Ra, APRN SEWING INSPECTOR [address] [place] [address] MyChart Communication (Abdominal pain) Social [...] Description 03/23/2024 10:30 AM CDT Office Visit [facility] [place] [address] [place] [address] Denise Woodson Ra, APRN SEWING INSPECTOR [address] [place] [address] documented as of this encounter Visit Diagnoses Not on filedocumented in this encounter Additional Health Concerns Assessment Noted Time PHQ-9 Depression Total Score: 0 01/05/20 21 9:31 AM CDT documented as of this encounter Care Teams Turkish Line Attendant Relationship Specialty Start Date End Date Yung Madrigal MD RETIRED PCP - Orthopaedics Orthopedics 08/26/12 01/20/24 Winston Villatoro OD [facility] [place] [address] [facility] [address] [place] [address] PCP - Ophthalmology Ophthalmology 02/11/13 Denise Woodson Ra, APRN SEWING INSPECTOR [address] [place] [address] PCP - General Family Practice 09/21/20 Denise Woodson Ra, APRN SEWING INSPECTOR [address] [place] [address] Assigned PCP 07/17/20 documented as of this encounter
--- OUTSIDE RECORDS SUMMARY | 2024-01-21 14:21 | XMS_ITS | Referral Summary ---
Author Name Unknown Organization [facility] Address [address] [place] [address] Care Team Providers Care Oil Tanker Captain Name Role Phone Winston Villatoro OD Unavailable [phone] Denise Woodson Ra, APRN CREDIT RISK SPECIALIST Unavailable [phone] Denise Woodson Ra, APRN CREDIT RISK SPECIALIST Primary Care Provid er Encounters Date Type Department Care Team Description 01/21/2024 8:30 AM CDT Ancillary Procedure [facility] EEG [address] [place] [phone] Kev Ansari MD Choudhary, Kriti, MD Arrived 01/19/2024 11:16 PM CDT - Present Hospital Encounter [facility] [address] [place] [phone] Luis Reynolds DO Choudhary, Kriti, MD 01/17/2024 1:09 PM CDT - 01/19/2024 10:07 PM CDT Hospital Encounter [facility] [address] [phone] Parminder Del Angel MD Al Lawati, Zainab, MD Discharge Disposition: Short Term Hospital from Last 3 Months Allergies Active Allergy Reactions Criticality Noted Date [...] (FLONASE) 50 MCG/ACT nasal sprayIndications: Chronic rhinitis [place] 2 sprays into both nostrils daily 16 [...] Description 03/23/2024 10:30 AM CDT Office Visit [facility] [place] [address] [place] [phone] Denise Woodson Ra, PIN BALL MACHINE MECHANIC CREDIT RISK SPECIALIST [address] [place], [place] [phone] Procedures The patient is currently admitted. The [...] STAT 01/20/2024 6:53 PM CDT MRA BRAIN ([place]) W/O CONTRAST STAT 01/20/2024 6:50 [...] BILATERAL W/ FLO Routine 07/30/2023 2:38 PM PRODUCTION FOREMAN LIPID REFLEX TO DIRECT LDL PANEL Routine 07/27/2021 8:57 AM PRODUCTION FOREMAN CARDIOVASCULAR SCREENING; LDL GOAL LESS THAN 160 ASTHMA ACTION PLAN Routine 01/04/2021 9: 09 AM CDT CL AFF HEMOGRAM/PLATE/DIFF Routine 11/08/2000 10:04 AM PRODUCTION FOREMAN Routine Medical Exam from Last 3 Months [...] LAB - BLOOD ORDERABL ES UR LABORATORY [facility] [address] [facility] [place] [address] * Basic metabolic panel (01/21/2024 5:51 AM CDT) Only the most recent of3 resultswithin the time period is included. [facility] Sodium 139 135 - 145 mmol/L 01/21/2024 [...] LAB - BLOOD ORDERABL ES UR LABORATORY [facility] [address] [facility], [address] [place] [phone] * MRA Neck (Carotids) wo & [...] agree with the findings. ANA LATHAM MD [facility] 01/20/2024 7:46 PM CDT EXAM: MRA NECK [...] findings. ANA LATHAM MD Airam Jay MD [facility] MRI ORDERABLES * MR Brain w/o & [...] findings. ANA LATHAM MD Airam Jay MD IM MRI ORDERABLES * MRA Brain ([place]) wo Contrast (01/20/2024 6:50 PM CDT) Anatomical Region Laterality Modality Head, SUBRAD MR NEURO, UMP MR NEURO, RAD MR Magnetic Resonance Impressions 01/20/2024 7:49 PM CDT IMPRESSION: No intracranial arterial aneurysm or stenosis. I have personally reviewed the examination and initial interpretation and I agree with the findings. 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 Outside CTA report for 01/09/2024 obtained through Care Everywhere. 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 Outside CTA report for 01/09/2024 obtained through Care Everywhere. TECHNIQUE: Using a 3D sifx-jp-xwrwuf image acquisition technique, MRA of the major [...] findings. ANA LATHAM MD Airam Jay MD IM MRI ORDERABLES * Troponin T, High Sensitivity (01/19/2024 11:55 PM CDT) Troponin T, High Sensitivity <6 <=14 ng/L [...] CDT 01/20/2024 12:01 AM CDT Len Camejo DO LAB - BLOOD ORDERABLES UR LABORATORY [facility] [address] [facility] [place] [address] * Lactic acid whole blood (01/19/2024 11:55 PM CDT) Lactic Acid 1.1 0.7 - 2.0 mmol/L 01/20/2024 12:03 AM CDT UR LABORATORY Blood STRUCTURE OF RIGHT UPPER LIMB / Unknown Venipuncture / Unknown 01/19/2024 11:55 PM CDT 01/20/2024 12:01 AM CDT Len Camejo DO LAB - BLOOD ORDERABLES UR LABORATORY [facility] [address] [facility], Room [place] [phone] * Extra Purple Top Tube (01/19/2024 11:54 PM CDT) Hold Specimen [facility] 01/20/2024 1:04 AM CDT UR LABORATORY Blood BLOOD SPECIMEN / Unknown Venipuncture / Unknown 01/19/2024 11:54 PM CDT 01/20/2024 12:03 AM CDT Luis Reynolds DO LAB - BLOOD ORDERABL ES Performing Organization Address City/[facility]/ZIP Co de Phone Number UR LABORATORY [facility] Lab [facility] [facility], Room [place] [phone] * CT Head w/o Contrast (01/19/2024 10:34 [...] the vertex were obtained without intravenous contrast. Wire Coater (topogram) image(s) also obtained and reviewed. FINDINGS: [...] the vertex were obtained without intravenous contrast. Wire Coater (topogram) image(s) also obtained and reviewed. FINDINGS: [...] findings. ANA LATHAM MD Randy Kwon APRN CREDIT RISK SPECIALIST IMG CT ORDERABLES * EKG 12-lead, complete (01/19/2024 10:33 PM CDT) Systolic Blood Pressure mmHg RADIOLOGY RESULTS Diastolic Blood Pressure mmHg RADIOLOGY RESULTS Ventricular Rate 84 BPM RAD IOLOGY RESULTS Atrial Rate 84 BPM RADIOLOG Y RESULTS MT Interval 168 ms RADIOLOG Y RESULTS QRS Duration 82 ms RADIOLO GY RESULTS QT 374 ms RADIOLOGY RESULTS QTc 441 ms RADIOLOGY RESULTS P [place] 30 degrees RADIOLOGY RESULTS R AXIS 36 degrees RADIOLOGY RESULTS T [place] -13 degrees RADIOLOGY RESULTS Interpretation ECG Sinus rhythm with frequent Premature ventricular complexes Abnormal ECG No previous ECGs available Confirmed by MD MAN JANE ([id number]) on 01/20/2024 9:02:28 AM RADIOLOGY RESULTS 01/19/2024 10:3 3 PM CDT 01/20/2024 9:02 AM CDT Randy Kwon APRN, CNP ECG ORDERABLES RADIOLOGY RESULTS * INR (01/19/2024 9:33 PM CDT) INR 0.87 0.85 - 1.15 01/19/2024 10:17 PM CDT UR LABORATORY Blood BLOOD SPECIMEN / Unknown Venipuncture / Unknown 01/19/2024 9:33 PM CDT 01/19/2024 9:54 PM CDT Randy Kwon APRN, CNP LAB - BLOOD ORDER NASRIN UR LABORATORY [facility] Acute Care Lab [address] [facility] [place] [address] * Prolactin (01/19/2024 9:33 PM CDT) Prolactin 22 5 - 23 ng/mL 01/19/2024 11:23 PM CDT [facility] LABORATORY Blood BLOOD SPECIMEN / Unknown Venipuncture / Unknown 01/19/2024 9:33 PM CDT 01/19/2024 9:54 PM CDT Randy Kwon APRN, CNP LAB - BLOOD ORDER NASRIN [facility] LABORATORY [facility] [place] [facility] [address] [facility], [address] [place] [address] * Partial thromboplastin time (01/19/2024 9:33 PM CDT) aPTT 25 22 - 38 Seconds 01/19/2024 10:18 PM CDT UR LABORATORY Blood BLOOD SPECIMEN / Unknown Venipuncture / Unknown 01/19/2024 9:33 PM CDT 01/19/2024 9:54 PM CDT Randy Kwon APRN CREDIT RISK SPECIALIST LAB - BLOOD ORDER NASRIN UR LABORATORY [facility] [address] [place] [address], Room [place] [phone] [place] [address] * Fibrinogen activity (01/19/2024 9:33 PM CDT) Fibrinogen Activity 417 170 - 490 mg/dL 01/19/2024 10:18 PM CDT UR LABORATORY Blood BLOOD SPECIMEN / Unknown Venipuncture / Unknown 01/19/2024 9:33 PM CDT 01/19/2024 9:54 PM CDT Randy Kwon APRN CREDIT RISK SPECIALIST LAB - BLOOD ORDER NASRIN UR LABORATORY [facility] [address] [place] [address], [address] * Extra Green Top ([place] Heparin) Tube (01/18/2024 5:40 AM CDT) Hold Specimen JIC 01/18/2024 7:32 AM CDT UR LABORATORY Blood STRUCTURE OF RIGHT UPPER LIMB / Unknown Venipuncture / Unknown 01/18/2024 5:40 AM CDT 01/18/2024 6:18 AM CDT Parminder Del Angel MD LAB - BLOOD ORDERABL ES UR LABORATORY [facility] [address] [place] [address], Room [address] [phone] * Platelet count - Routine (01/18/2024 5:40 AM CDT) Platelet Count 217 150 - 450 10e3/uL 01/18/2024 6:15 AM CDT UR LABORATORY Blood STRUCTURE OF RIGHT UPPER LIMB / Unknown Venipuncture / Unknown 01/18/2024 5:40 AM CDT 01/18/2024 6:13 AM CDT Parminder Del Angel MD LAB - BLOOD ORDERABL ES UR LABORATORY [facility] [address] [facility] [place] [address], [facility] * (ABNORMAL) Lipid panel reflex to direct LDL Fasting (07/27/2021 8:57 AM PRODUCTION FOREMAN) Cholesterol 202(H) <200 mg/dL 07/28/2021 10:12 AM PRODUCTION FOREMAN [facility] Triglycerides 91 <150 mg/dL 07/28/2021 10:12 AM PRODUCTION FOREMAN [facility] Direct Measure HDL 56 >=50 mg/dL 07/28/2021 10:12 AM PRODUCTION FOREMAN [facility] LDL Cholesterol Calculated 128(H) <=100 mg/dL 07/28/2021 10:12 AM PRODUCTION FOREMAN [facility] Non HDL Cholesterol 146(H) <130 mg/dL 07/28/2021 10:12 AM PRODUCTION FOREMAN [facility] Patient Fasting > 8hrs? Yes 07/28/2021 10:12 AM PRODUCTION FOREMAN [facility] Blood STRUCTURE OF RIGHT UPPER LIMB / Unknown Venipuncture / Unknown 07/27/2021 8:57 AM PRODUCTION FOREMAN 07/27/2021 8:57 AM PRODUCTION FOREMAN Narrative [facility] LAB[facility]ATORY - 07/28/2021 10:12 AM PRODUCTION FOREMAN Cholesterol Desirable: ??<200 mg/dL Triglycerides Normal: ??Less [...] equal to 220 mg/dL Denise Woodson APRN CREDIT RISK SPECIALIST LAB - BLOOD ORDERABLES [facility] LAB[facility]AT[facility] [address] Lab (no room number, 1st floor of clinic) [place] [address], [facility] [phone] * HEMOGRAM/PLATE/DIFF ([facility] ONLY) (11/08/2000 10:04 AM PRODUCTION FOREMAN) WBC 6.9 4.3 - 11 thous/CU.MM B[facility] [...] % [facility] INTERNAL 11/08/2000 10:0 4 AM PRODUCTION FOREMAN Jasvir Munroe MD LABORATORY [facility] INTERNAL from Last 3 Months or Most Recently Relevant to Health Maintenance Advance Directives For more information, please contact: [phone] * Full Code (Latest Code Status on File) Date Activated Date Inactivated Comments 01/20/2024 12:22 AM All basic and advanced life-sustaining interventions are performed as appropriate Question Answer Comments Code status determined by: Discussion with larissae nt/ legal decision maker * Full Code Date Activated Date Inactivated Comments 01/17/2024 1:19 PM 01/19/2024 11:16 PM All basic and advanced life-sustaining interventions are performed as appropriate Question Answer Comments Code status determined by: Discussion with ninfa nt/ legal decision maker Care Teams Oil Tanker Captain Relationship Specialty Start Date End Date Winston Villatoro OD [facility] [place] [address] [place] [address] PCP - Ophthalmology Ophthalmology 02/11/13 Denise Woodson Ra, APRN CREDIT RISK SPECIALIST [address] [address] [place] [id number] PCP - General Family Practice 09/21/20 Denise Woodson Ra, APRN CREDIT RISK SPECIALIST [address] [place] [address] Assigned PCP 07/17/20
--- OUTSIDE RECORDS SUMMARY | 2024-01-21 14:21 | XMS_ITS | Encounter Summary ---
Author Name Unknown Organization [facility] Address [address] [place] [address]. [place] [address] Care Team Providers Care Commercial Credit Lead Name Role Phone Yung Madrigal MD Unavailable Unavailable Winston Villatoro OD Unavailable [phone] Denise Woodson Ra, APRN [employer] Unavailable + [phone] Denise Woodson Ra, APRN [employer] Primary Care Provid er Encounter Details Date Type Department Care Team (Late st Contact Info) Description 01/10/2023 [facility] [address] [place] [address] Arianna Lo Social History Tobacco [...] Description 03/23/2024 10:30 AM CDT [facility] [address] [place] [address] Denise Woodson Ra, APRN [employer] [address] [place] [address] documented as of this encounter Visit Diagnoses Not on filedocumented in this encounter Additional Health Concerns Assessment Noted Time PHQ-9 Depression Total Score: 0 06/23/20 21 4:11 PM CDT documented as of this encounter Care Teams Commercial Credit Lead Relationship Specialty Start Date End Date Yung Madrigal MD RETIRED PCP - Orthopaedics Orthopedics 08/26/12 01/20/24 Winston Villatoro OD [facility] [place] [address] [facility] [address] [place] [address] PCP - Ophthalmology Ophthalmology 02/11/13 Denise Woodson Ra, APRN [employer] [id number] [place] [id number] PCP - General Family Practice 09/21/20 Denise Woodson Ra, APRN [employer] [id number] [place] [id number] Assigned PCP 07/17/20 documented as of this encounter
--- OUTSIDE RECORDS SUMMARY | 2024-01-21 14:21 | XMS_ITS | Encounter Summary ---
Author Name Unknown Organization [place] Address [address] [place] [id number] Care Team Providers Care Associate Dentist Name Role Phone Yung Madrigal MD Unavailable Unavailable Winston Villatoro OD Unavailable [phone] Denise Woodson Ra, APRN ATTENDANCE OFFICER Unavailable [phone] Denise Woodson Ra, APRN ATTENDANCE OFFICER Primary Care Provid er Reason for Visit * Auth/Cert (Routine) Specialty Diagnoses / Procedures Referred By Nila shah Referred To Contact [facility] [address] [place] [id number] Referral ID Status Reason Start Date Expiration Date Visits Re quested Visits Authorized [id number] 1 1 Encounter Details Date Type Department Care Team (Latest Contact Info) Description 01/17/2024 1:09 PM CDT - 01/19/2024 10:07 PM CDT Hospital Encounter [facility] [address] [address] Parminder Del Angel MD [address] [place] [address] Sandi Saini MD [address] [place] [address] Discharge Disposition: Short Term Hospital Social History Tobacco Use Types Packs/Day [...] Sign Reading Time Taken Comments Blood Pressure 169/87 01/19/2024 8:59 PM CDT Pulse 79 01/19/2024 8:59 PM CDT Temperature 36.2 ??C (97.2 ??F) 01/19/2024 5:04 PM CD T Respiratory Rate 17 01/19/2024 5:04 PM CDT Oxygen Saturation 95% 01/19/2024 5:04 PM CDT Inhaled Oxygen Concentration - - Weight 96.9 kg (213 lb 9.6 oz) 01/17/2024 1:23 P M CDT Height 174.6 cm (5' 8.74) 01/17/2024 1:23 PM CD T Body Mass Index 31.78 01/17/2024 1:23 PM CDT documented in this encounter Discharge Summaries * Sandi Saini MD - 01/19/2024 9:00 PM CDT Images from the original note were not included. . [facility] Unit Discharge summary Date of Admission: 01/17/2024 Date of Discharge: 01/18/34 Disposition: acute hospital Primary Care Physician: Denise Woodson Ra Attending physician: No att. providers found Other significant physician provider(s): call taker Dr. Saini discharge diagnosis Impairment group code: 01.2 Right body, left brain stroke, multiple acute ischemic infarcts in the frontal and parietal lobes, left supramarginal gyrus following angiogram brief summary Alcon Zamora is a 48 year old female with past medical history of Lizy-Danlos syndrome, mild persistent asthma, anxiety and depression, fibromyalgia presented for a planned catheter angiogram at [facility] for left sided pulsatile tinnitus on 01/09/24, found to have multiple acute ischemic infarcts of the frontal lobes, parietal lobes and left supramarginal gyrus after procedure with associated right sided weakness and numbness, likely embolic in nature secondary to procedure complication, complicated by post-stroke seizures, now being admitted on 01/17/2024 at [facility] for acute inpatient rehabilitation. On 01/20/24: FRONT DESK PERSON was activated. Patient was non-verbal, rapid eye movement, and repetitive grinding of teeth that was self limiting. It was witnessed by bedside ARU staff prompting code rapid response.Upon writers presentation to bedside patient again developed same pattern of neurological exam. Aggressive sternal rub was applied and patient reached for examiners had describing that hurts. Each episode lasting ~ 30-45 seconds and were self limiting. Low concern for grand mal seizure as patientlocalized to sternal rub and responded withthat hurts during the episode described. rehabilitaiton course Unable to complete. mEDICAL COURSE Patient was admitted on 01/16 and transferred on 01/18. Blood sugars were optimized prior to transfer. dISCHARGE MEDICATIONS Discharge Medication List as of 01/19/2024 10:18 PM CONTINUE these medications which have NOT CHANGED Details albuterol (PROAIR HFA/PROVENTIL HFA/VENTOLIN HFA) 108 (90 Base) MCG/ACT inhaler Inhale 2 puffs intothe lungs every 4 hours as needed for shortness of breath / dyspnea or wheezing, Disp-1 Inhaler, R-3, [facility] may dispense brand covered by insurance (Proair, or proventil or ventolin or generic albuterol inhaler) Pt will call when needed. BREO ELLIPTA 200-25 MCG/INH Inhaler INHALE 1 PUFF INTO THE LUNGS DAILY, Disp-3 each, R-1, E-Prescribe Chelated Magnesium 100 MG TABS Take 100 mg by mouth At Bedtime, Historical cyclobenzaprine (FLEXERIL) 10 MG tablet Take 1 tablet (10 mg) by mouth 3 times daily as needed for muscle spasms, Disp-20 tablet, R-0, E-Prescribe fluticasone (FLONASE) 50 MCG/ACT nasal spray [place] 2 sprays into both nostrils daily, Disp-16 g, R-3, E-Prescribe traZODone (DESYREL) 50 MG tablet Take 2 tablets (100 mg) by mouth At Bedtime, Disp-180 tablet, R-3,E-Prescribe DISCHARGE INSTRUCTIONS AND FOLLOW UP No discharge procedures on file. physical examination Most recent Vital Signs: Vitals: 01/18/24 1546 01/19/24 0913 01/19/24 1704 01/19/242058 BP: 130/85 125/60 132/69 (!) 169/87 BP Location: Right arm Right arm Right arm Right arm Patient Position: Semi-Gerardo's Cuff Size: Adult Regular Pulse: 79 80 74 79 Resp: Temp: 97.5 ??F (36.4 ??C) 97.8 ??F (36.6 ??C) 97.2 ??F (36.2 ??C) TempSrc: Oral Oral Oral SpO2: 96% 94% 95% Weight: Height: See FRONT DESK PERSON notes for physical exam prior to transfer. Discharge summary was forwarded to Denise Woodson Ra (PCP) at the time of discharge, so as to bridge from hospital to outpatient care. It was our pleasure to care for Alcon Zamora during this hospitalization. Please do not hesitate to contact me should there be questions regarding the hospital course or discharge plan. ISandi MD, saw and evaluated this patient prior to discharge. 70 minutes spent in discharge, including >50% in counseling and coordination of care, medication review and plan of carerecommended on follow up. documented in this encounter Medications at Time of Discharge Medication Sig Dispensed Refills Start Date End Date albuterol (PROAIR HFA/PROVENTIL HFA/VENTOLIN HFA) 108 (90 Base) MCG/ACT inhalerIndications:Mode rate persistent asthma without complication Inhale 2 puffs into the lungs every 4 hours as needed for shortness of breath / dyspnea or wheezing 1 Inhaler 3 07/13/2020 aspirin (ASA) 325 MG EC tablet Take 325 mg by mouth daily BREO ELLIPTA 200-25 MCG/INH InhalerIndications:Mode rate persistent asthma without complication INHALE 1 PUFF INTO THE LUNGS DAILY 3 each 1 02/22/2022 cetirizine (ZYRTEC) 10 MG tablet Take 10 mg by mouth daily levETIRAcetam (KEPPRA) 750 MG tablet Take 750 mg by mouth 2 times daily magnesium oxide 200 MG TABS Take 200 mg by mouth at bedtime psyllium (METAMUCIL) 28.3 % packet Take 1 packet by mouth daily rosuvastatin (CRESTOR) 20 MG tablet Take 20 mg by mouth at bedtime traZODone (DESYREL) 50 MG tabletIndications:Insom elena, unspecified type Take 2 tablets (100 mg) by mouth At Bedtime 180 tablet 3 07/27/2021 Chelated Magnesium 100 MG TABS Take 100 mg by mouth At Bedtime 01/20/2024 cyclobenzaprine (FLEXERIL) 10 MG tabletIndications:Neck muscle spasm Take 1 tablet (10 mg) by mouth 3 times daily as needed for muscle spasms 20 tablet 06/12/2017 01/20/2024 fluticasone (FLONASE) 50 MCG/ACT nasal sprayIndications:Chroni c rhinitis [place] 2 sprays into both nostrils daily 16 g 3 06/15/2019 01/20/2024 documented as of this encounter Progress Notes * Randy Kwon APRN ATTENDANCE OFFICER - 01/19/2024 9:54 PM CDT [facility] Critical Response Team FRONT DESK PERSON Note 01/19/2024 FRONT DESK PERSON called for: concern for seizure Assessment & Plan Patient was non-verbal, rapid eye movement, and repetitive grinding of teeth that was self limiting. It was witnessed by bedside ARU staff prompting code rapid response. Upon writers presentation to bedside patient again developed same pattern of neurological exam. Aggressive sternal rub was applied and patient reached for examiners had describing that hurts. Each episode lasting ~ 30-45 seconds and were self limiting. Low concern for grand mal seizure as patient localized to sternal rub and responded withthat hurts during the episode described. GEN: not in distress EYES: PERRL, Anicteric sclera. HEENT: Normocephalic, atraumatic, trachea midline, Pupils PERRLA CV: RRR, no gallops, rubs, or murmurs PULM/CHEST: Clear breath sounds bilaterally without rhonchi, crackles or wheeze, symmetric chest rise GI: normal bowel sounds, soft, non-tender, no rebound tenderness or guarding, no masses EXTREMITIES: No peripheral edema, moving all extremities, equal strength, peripheral pulses intact,and generalized weakness NEURO: AO x 4, Cranial nerves II-XII grossly intact, no motor-sensory deficits noted SKIN: No rashes, sores or ulcerations PSYCH: Affect: appropriate, anxious, and frustrated INTERVENTIONS: -Admit to inpatient medicine for closer monitoring and neurology consult given complex history -Ct head w/o -CMP, CBC plt w/ diff, mg, phos, and prolactin -EKG ordered -Sign out given to Dr. Reynolds [facility] hospitalist -Continue Keppra regimen HPI: Alcon Zamora is a 48 year old female with past medical history of Lizy- Danlos syndrome, mild persistent asthma, anxiety and depression, fibromyalgia presented for a planned catheter angiogram at [facility] for left sided pulsatile tinnitus on 01/09/24, found to have multiple acute ischemic infarcts of the frontal lobes, parietal lobes and left supramarginal gyrus after procedure with associated right sided weakness and numbness, likely embolic in nature secondary to procedure complication, complicated by post-stroke seizures, now being admitted on 01/17/2024 at [facility] foracute inpatient rehabilitation. Code Status: Full Code Allergies Allergies Allergen Reactions Mold Dizziness and GI Disturbance Bupropion GI Disturbance and Other (See Comments) Diarrhea and stomach ache Erythromycin GI Disturbance Physical Exam Vital Signs with Ranges: Temp: [97.2 ??F (36.2 ??C)-97.8 ??F (36.6 ??C)] 97.2 ??F (36.2 ??C) Pulse: [74-80] 79 Resp: [17-18] 17 BP: (125-169)/(60-87) 169/87 SpO2: [94 %-95 %] 95 % No intake/output data recorded. ABG: -No lab results found in last 7 days. Troponin: No lab results found. IMAGING: (X-ray/CT/MRI) No results found for this or any previous visit (from the past 24 hour(s)). CBC with Diff: Recent Labs Lab Test 01/18/24 0540 01/04/21 0918 WBC -- 7.4 HGB -- 13.9 MCV -- 94 PLT 217 210 Lactic Acid: No results found for: LACT Comprehensive Metabolic Panel: No lab results found in last 7 days. INR: No lab results found. D-DIMER: No results found for: DIMER BNP: No results found for: BNP UA: No results for input(s): COLOR, APPEARANCE, URINEGLC, URINEBILI, URINEKETONE, SG, UBLD, URINEPH, PROTEIN, UROBILINOGEN, NITRITE, LEUKEST, RBCU, WBCU in the last 168 hours. Time Spent on this Encounter I spent 35 minutes on the unit/floor managing the care of Alcon Zamora. Over 50% of my time was spent counseling the patient and/or coordinating care regarding services listed in this note. Randy Kwon APRN ATTENDANCE OFFICER * Tulio Alva, MAINTENANCE MACHINIST - 01/19/2024 12:58 PM CDT 01/19/24 1251 Appointment Info Signing Clinician's Name / Credentials (MAINTENANCE MACHINIST) Tulio Alva MS, [facility]-MAINTENANCE MACHINIST General Information Onset of Illness/Injury or Date of Surgery 01/09/24 Referring Physician AMAIRANI You Patient/Family Therapy Goal Statement (MAINTENANCE MACHINIST) Swallow without difficulties Pertinent History of Current Problem Alcon Zamora is a 48 year old female with past medical history of Lizy-Danlos syndrome, mild persistent asthma, anxiety and depression, fibromyalgia presented for a planned catheter angiogram at [facility] for left sided pulsatile tinnitus on 01/09/24, found to have multiple acute ischemic infarcts of the frontal lobes, parietal lobes and left supramarginal gyrus after procedure with associated right sided weakness and numbness, likely embolic in nature secondary to procedure complication, complicated by post-stroke seizures General Observations Patient referred to speech therapy to assess swallowing as patient reporting some difficulties Type of Evaluation Type of Evaluation Swallow Evaluation Oral Motor Oral Musculature anomalies present (Initial mild poor coordination but ultimately able to complete each of the oral muscular movementsappropriately) Structural Abnormalities none present Mucosal Quality good Dentition (Oral Motor) Dentition (Oral Motor) natural dentition;adequate dentition Facial Symmetry (Oral Motor) Facial Symmetry (Oral Motor) WNL Lip Function (Oral Motor) Lip Range of Motion (Oral Motor) WNL Tongue Function (Oral Motor) Tongue ROM (Oral Motor) WNL Jaw Function (Oral Motor) Jaw Function (Oral Motor) WNL Cough/Swallow/Gag Reflex (Oral Motor) Volitional Throat Clear/Cough (Oral Motor) WNL Volitional Swallow (Oral Motor) WNL Vocal Quality/Secretion Management (Oral Motor) Vocal Quality (Oral Motor) WFL Secretion Management (Oral Motor) WNL General Swallowing Observations Comment, General Swallowing Observations Patient reports that she has had some difficulties at times with pills and harder port drier textures such as chicken breast. Current Diet/Method of Nutritional Intake (General Swallowing Observations, NIS) thin liquids (level 0);regular diet Swallowing Evaluation Clinical swallow evaluation Clinical Swallow Evaluation Feeding Assistance no assistance needed Clinical Swallow Evaluation Textures Trialed thin liquids;solid foods Clinical Swallow Eval: Thin Liquid Texture Trial Mode of Presentation, Thin Liquids cup;self-fed Volume of Liquid or Food Presented Single swallows Oral Phase of Swallow WFL Pharyngeal Phase of Swallow intact Diagnostic Statement Able to tolerate thin liquids without any overt signs and symptoms of aspiration or changes in vocal quality. Clinical Swallow Evaluation: Solid Food Texture Trial Mode of Presentation spoon;self-fed Volume Presented Appropriate sized single bites Oral Phase WFL Pharyngeal Phase intact Diagnostic Statement Tolerated solid food textures without evidence of difficulties. This continuedboth with and without distractions being presented. Swallowing Recommendations Diet Consistency Recommendations thin liquids (level 0);regular diet Supervision Level for Intake patient independent Postural Recommendations head turn to right (Patient previously educated regarding potential benefit of a head turn strategy which she reportedthat she used last night with medications with improved function.) Recommended Feeding/Eating Techniques (Swallow Eval) patient is independent, no specific recommendations Medication Administration Recommendations, Swallowing (MAINTENANCE MACHINIST) Per patient preference Clinical Impression Criteria for Skilled Therapeutic Interventions Met (MAINTENANCE MACHINIST Eval) No problems identified which require skilled intervention MAINTENANCE MACHINIST Diagnosis Swallowing within functional limits Problem List (MAINTENANCE MACHINIST) Suspect patient had some initial oropharyngeal dysphagia that has spontaneously improved. Patient at this date was able to recognize some of the improvements she has had since initial onset of CVA. Activity Limitations Related to Problem List (MAINTENANCE MACHINIST) No restrictions or limitations Clinical Impression Comments Bedside swallow evaluation completed as patient has previously reported some swallowing difficulties with harder/port drier food items as well as medications. Patient was observed this date with harder/port drier items was able to tolerate without difficulties noted. Per conversation with patient she is able to recognize the improvements that she has had in her swallowing functi on. Suspect patient had some initial oropharyngeal dysphagia that has since spontaneously improved.Patient could potentially benefit from use of a head turn strategy with medications if she experiences any ongoing difficulties. At this time do not anticipate any ongoing dysphagia interventions. Will follow-up with patient informally as needed. For now we will continue focus of treatment on cognitive-linguistic impairments. MAINTENANCE MACHINIST Discharge Planning MAINTENANCE MACHINIST Plan FAVRES as treatment. Moderate to complex level reasoning/problem solving and attention tasks. Immediate/short-term memory strategies. 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 f/u Precautions: fall risk, sensory symptoms (facial numbness) with exertion or in complex environments Current Status: Bed Mobility: Mod I Transfer: Mod I in room with FWW; SBA/CGA w/o FWW in open environments Gait: up to 250-350 ft w/o FWW, CGA/SBA Stairs: 4 6 CGA/min A, reciprocal pattern, rails x 2 Balance: intact steady-state standing/walking without UE support Outcome Measures: BBS = 46/56 (01/19/24) 10MWT = 6.69s/0.9 m/s gait speed (01/19/24) Assessment: Focused on normalizing gait pattern and developing postural control through ambulation w/o FWW; cleared for independence in room using FWW; completed 10MWT and BBS. 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 Precautions: fall risk, sensory symptoms (facial numbness) with exertion Current Status: Bed Mobility: supervision for safety Transfer: min/CGA FWW Gait: up to 80 ft FWW, CGA/min A Stairs: 4 6 CGA/min A, reciprocal pattern, rails x 2 Balance: unsteady steady-state standing/walking without UE support Outcome Measures: BBS = 01/19/24 Assessment: 48 y/o female presents with force production deficits associated with stroke resulting in decreased bed mobility, transfers, ambulation, and stair climbing influenced by muscle weakness, impaired coordination, impaired motor control, impaired postural control/balance, impaired sensory feedback; meets criteria for skilled physical therapy in [facility], ELOS = 2 weeks Other Barriers to Discharge (DME, Family Training, etc): Split level home, family trg, cognitive/visual disruptions with exertion * Jasvir Boone, PT - 01/18/2024 4:09 PM CDT 01/18/24 0900 Appointment Info Signing Clinician's Name / Credentials (PT) Jhonny Boone, PT Rehab Comments (PT) resting BP 136/71 HR 71 SpO2 96%; post max ambulation effort BP 150/67 HR 86 SpO2 97% Living Environment People in Home spouse;child(vipul), adult Current Living Arrangements house Home Accessibility stairs to enter home;stairs within home Number of Stairs, Main Entrance 2 Stair Railings, Main Entrance none Number of Stairs, Within Home, Primary nine Stair Railings, Within Home, Primary none Transportation Anticipated car, drives self;family or friend will provide Living Environment Comments Also has 2 stairs to enter home from front of house, railings on both sides.Split entry once inside. States from bedrooms to laundry in 2nd basement is 4 set of 9 stairs, states family can assist with laundry if needed. 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 Previous IND with all mobility and ADLs. Does cooking, cleaning, and laundry. Post-Acute Assessment Only Post-Acute Functional Assessment See below Previous Level of Function/Home Environm Bed Mobility, Previous Functional Level independent Transfers, Previous Functional Level independent Household Ambulation, Previous Functional Level independent Stairs, Previous Functional Level independent Community Ambulation, Previous Functional Level independent General Information Onset of Illness/Injury or Date of Surgery 01/09/24 Referring Physician Parminder Del Angel MD Patient/Family Therapy Goals Statement (PT) Want to be independent and go back to work Pertinent History of Current Problem (include personal factors and/or comorbidities that impact thePOC) 48 year old female with past medical history of Lizy-Danlos syndrome, mild persistent asthma, anxiety and depression, fibromyalgia presented for a planned catheter angiogram at [facility] for left sided pulsatile tinnitus, found to have multiple acute ischemic infarcts of the frontal lobes, parietal lobes and left supramarginal gyrus after procedure with associated right sided weakness and numbness, likely embolic in nature secondary to procedure complication, complicated by post-stroke seizures Existing Precautions/Restrictions fall Heart Disease Risk Factors Overweight Cognition Affect/Mental Status (Cognition) WFL Orientation Status (Cognition) oriented x 4 Follows Commands (Cognition) WFL Memory Deficit (Cognition) minimal deficit Pain Assessment Patient Currently in Pain No Integumentary/Edema Integumentary/Edema no deficits were identifed Posture Posture Not impaired Range of Motion (ROM) Range of Motion ROM is WFL ROM Comment hx of hypermobile joints (Rt knee hyperextension) Strength (Manual Muscle Testing) Strength (Manual Muscle Testing) Deficits observed during functional mobility Strength Comments Rt LE 4/5 grossly with all major planes hip, knee, ankle Gait/Stairs (Locomotion) Assistive Device (Gait) walker, front-wheeled Distance in Feet (Gait) 80 Balance Balance other (describe) Sitting Balance: Static good balance Sitting Balance: Dynamic fair balance Zve-nt-Qprds Balance fair balance Standing Balance: Static poor balance Standing Balance: Dynamic poor balance Systems Impairment Contributing to Balance Disturbance cognitive;visual;somatosensory;neuromuscular Identified Impairments Contributing to Balance Disturbance impaired coordination;impaired motor control;impaired postural control;impaired sensory feedback;decreased strength Balance Quick Add Sitting balance: Static;Sitting balance: dynamic;Sit to stand balance;Standing balance: static;Standing balance: dynamic;Systems impairment contributing to balance disturbance;Identified impairments contributing to balance disturbance Sensory Examination Sensory Perception other (describe) Sensory Perception Comments intact to light touch but reports numbness to Rt side of face with exertion Sensory Perception Quick Adds Light touch Sensation Light Touch Head/Neck mild impairment Coordination Coordination other (see comments) Coordination Comments incoordinated movements with finger to nose (eyes closed) and nose to examiners's finger (eyes open) Muscle Tone Muscle Tone no deficits were identified Clinical Impression Criteria for Skilled Therapeutic Intervention Yes, treatment indicated PT Diagnosis (PT) force production deficit Influenced by the following impairments impaired coordination;impaired motor control;impaired postural control;impaired sensory feedback;decreased strength Functional limitations due to impairments decreased bed mobility, transfers, ambulation, stair climbing Clinical Presentation (PT Evaluation Complexity) unstable Clinical Decision Making (Complexity) high complexity Planned Therapy Interventions (PT) balance training;bed mobility training;cryotherapy;E-stim;gait training;home exercise program;joint mobilization;lumbar stabilization;manual therapy techniques;neuromuscular re- education;motor coordination training;patient/family education;postural re-education;ROM (range of motion);stair training;strengthening;stretching;aust[place]ian ball techniques;TENS;thermotherapy;transfer training;progressive activity/exercise;risk factor education;home program guidelines Risk & Benefits of therapy have been explained evaluation/treatment results reviewed;care plan/treatment goals reviewed;current/potential barriers reviewed;risks/benefits reviewed;participants voiced agreement with care plan;participants included;patient Clinical Impression Comments 48 y/o female presents with force production deficits associated with stroke resulting in decreased bed mobility, transfers, ambulation, and stair climbing influenced by muscle weakness, impaired coordination, impaired motor control, impaired postural control/balance, im paired sensory feedback PT Total Evaluation Time PT Eval, High Complexity Minutes (30086) 45 Physical Therapy Goals PT Frequency 6x/week PT Predicted Duration/Target Date for Goal Attainment 01/31/24 PT Goals Bed Mobility;Transfers;Gait;Stairs;Aerobic Activity PT: Bed Mobility Modified independent;Supine to/from sit;Rolling;Bridging PT: Transfers Modified independent;Sit to/from stand;Bed to/from chair PT: Gait Modified independent;Greater than 200 feet PT: Stairs Modified independent;9 stairs;Rail on right PT: Perform aerobic activity with stable cardiovascular response continuous activity;5 minutes;ambulation Interventions Interventions Quick Adds Gait Training;Neuromuscular Re-ed;Therapeutic Activity;Therapeutic Procedure Therapeutic Procedure/Exercise Ther. Procedure: strength, endurance, ROM, flexibillity Minutes (54960) 15 Symptoms Noted During/After Treatment fatigue Treatment Detail/Skilled Intervention PT: to improve sustained activity tolerance, ambulation boutsoverground on level surface using FWW for UE 10-20 ft distances around gym during GG testing with CGA, seated rest between bouts for recovery, vitals monitored with sign of exertional hypertension and symptom onset (facial numbness, fatigue, lack of mental clarity) PT Discharge Planning PT Plan BBS, 10MWT PT Discharge Recommendation (DC Rec) home with home care physical therapy;home with outpatient physical therapy PT Rationale for DC Rec family support, split level home, high prior level of function, lack of comorbidities Total Session Time Timed Code Treatment Minutes 15 Total Session Time (sum of timed and untimed services) 60 Post Acute Settings Only What unit is patient on? Acute Rehab PT - Acute Rehab Center Time Individual Time (minutes) - PT 60 Group Time (minutes) - PT 0 Concurrent Time (minutes) - PT 0 Co-Treatment Time (minutes) - PT 0 ARC Total Session Time (minutes) - PT 60 ARC Daily Total Session Time PT ARC Daily Total Session Time 60 ARC Daily Rehab Total Minutes 60 Roll Left and Right Assistance Needed Supervision Physical Assistance Level No physical assistance Roll Left to Right CARE Score 4 Sit to Lying Assistance Needed Supervision Physical Assistance Level No physical assistance Sit to Lying CARE Score 4 Lying to Sitting on Side of Bed Assistance Needed Supervision Physical Assistance Level No physical assistance Lying to Sitting CARE Score 4 Sit to Stand Assistance Needed Adaptive equipment Physical Assistance Level 25%-49% Sitting to Standing CARE Score 3 Walk 10 Feet Assistance Needed Adaptive equipment Physical Assistance Level Less than 25% Walk 10 Ft. CARE Score 3 Walk 50 Feet with Two Turns Patient Performance Adaptive equipment Physical Assistance Level Less than 25% Walk 50 Ft. CARE Score 3 Walk 150 Feet Reason if not Attempted Medical concerns Walk 150 Ft. CARE Score 88 Walking 10 Feet on Uneven Surfaces Reason if not Attempted Safety concerns Walking 10 Feet on Uneven Surfaces CARE Score 88 Wheel 50 Feet with Two Turns Reason if not Attempted Activity not applicable Wheel 50 Feet with Two Turns CARE Score 9 Wheel 150 Feet Reason if not Attempted Activity not applicable Wheel 150 Feet CARE Score 9 1 Step (Curb) Physical Assistance Level Less than 25% 1 Step CARE Score 3 4 Steps Physical Assistance Level Less than 25% 4 Steps CARE Score 3 12 Steps Reason if not Attempted Medical concerns 12 Steps CARE Score 88 Picking Up Object Physical Assistance Level Contact guard assist Shark Biologist CARE Score 4 Car Transfer Physical Assistance Level Contact guard assist Car Transfer CARE Score 4 * Tulio Alva SLP - 01/18/2024 3:49 PM CDT Repeatable Battery for the Assessment of Neuropsychological Status (RBANS) FORM A Immediate Memory Visuospatial/ Constructional Language Attention Delayed Memory Total Scale Index Score 87 100 91 75 98 86 Percentile Rank 19 50 27 5 45 18 MAINTENANCE MACHINIST: Pt seen for administration of RBANS. Results are based on a mean of 100 and a standard deviation of +/- 15. Interpretation: Patient able to recognize a change in her cognition. Particularly noting changes inher processing speed and abilities to recall short-term information. These areas coincide with the test results noted. Current level of function likely below her baseline. Face to Face Administration: 30 minutes Scoring/Interpretation: 15 minutes Total Time: 45 minutes * Angie Tripp RN - 01/18/2024 1:14 PM CDT VS: Diastolic BP is low, fluid encouraged O2: 95% at ra Output: See I and O flow sheet Last BM: 01/18/24 Activity: Assist of 1 with walker Skin: intact Pain: Denies pain CMS: Intact Dressing: None Diet: Regular/ Thin LDA: None Equipment: T belt, walker Plan: We will continue current plan of care Additional Info: * Sandi Saini MD - 01/18/2024 10:49 AM CDT Images from the original note were not included. 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 Reports having poor sleep yesterday. Patient said my sleep medication was not given to me yesterday night. I checked the MAR and Trazodone was given at 9.30 PM PAST MEDICAL HISTORY Reviewed and updated in [facility]. 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 Provider to review Pain in joint, pelvic region and thigh Premature identical twin sister Stroke (H) 01/17/2024 Uncomplicated asthma SURGICAL HISTORY Reviewed and updated in [email or web address]. Past Surgical History: Procedure Laterality Date C HOME TEACHING GRADES 9 THRU 12 TEACHER PROCEDURE DATE: vag del. C HOME TEACHING GRADES 9 THRU 12 TEACHER PROCEDURE DATE: 2000 tubal ligation C HOME TEACHING GRADES 9 THRU 12 TEACHER PROCEDURE DATE: 1994 D&C CARDIAC SURGERY 06/2006 heart defect repair ESOPHAGOSCOPY, GASTROSCOPY, DUODENOSCOPY (EGD), COMBINED N/A 02/08/2021 Procedure: ESOPHAGOGASTRODUODENOSCOPY (EGD); Surgeon: Tuan Miller MD; Location: GI GI SURGERY 09/2020 gallbladder removed HC KNEE SCOPE,MED/LAT MENISECTOMY 08/04/13 LT HEART CATH, CLOSURE ATRIAL SEPTAL DEFECT 06/20/06 amplatzer septal occluder- serial #[id number] RW HOME TEACHING GRADES 9 THRU 12 TEACHER (ABSTRACTED) pneumonia several times SURGICAL PATHOLOGY EXAM 02/2012 excision of lipoma on chest wall ZZC VAGINAL HYSTERECTOMY 01/30/06 SOCIAL HISTORY Reviewed and updated in [facility]. Living Situation: Lives with Sandor, in split level home , 2 [address]LEXIS home with rail in front door, no rail in garage (also 2 [address]), 8-9 steps to get to a floor with a bedroom or bathroom. 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 She has never used smokeless tobacco. She reports that she does not currently use alcohol. She reports that she does not use drugs. PRIOR FUNCTIONAL HISTORY Pt was independent with all ADLs/IADLs, transfers, mobility and gait with no assistive device. 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 No Social History Narrative Not on file Social Determinants of Health Financial Resource Strain: Low Risk (01/10/2023) Received from [facility] Overall Financial Resource Strain (CARDIA) Difficulty of Paying Living Expenses: Not hard at all Food Insecurity: No Food Insecurity (01/10/2023) Received from [facility] Hunger Vital Sign Worried About Running Out of Food in the Last Year: Never true Ran Out of Food in the Last Year: Never true Transportation Needs: No Transportation Needs (01/10/2023) Received from [facility] PRAPARE - Transportation Lack of Transportation (Medical): No Lack of Transportation (Non-Medical): No Physical Activity: Sufficiently Active (01/10/2023) Received from [facility] Exercise Vital Sign Days of Exercise per Week: 5 days Minutes of Exercise per Session: 30 min Stress: Stress Concern Present (01/10/2023) Received from [facility] [employer] [place] [employer] - Occupational Stress Questionnaire Feeling of Stress : Rather much Social Connections: Socially Isolated (01/10/2023) Received from [facility] Social Connection and Isolation Panel [NHANES] Frequency of Communication with Friends and Family: Once a week Frequency of Social Gatherings with Friends and Family: Once a week Attends Baptism Services: Never Active Member of Clubs or Organizations: No Attends Club or Organization Meetings: Never Marital Status: Interpersonal Safety: Not At Risk (01/10/2023) Received from [facility] Humiliation, Afraid, Rape, and Kick questionnaire Fear of Current or Ex-Partner: No Emotionally Abused: No Physically Abused: No Sexually Abused: No Housing Stability: Low Risk (01/10/2023) [facility] Housing Stability Vital Sign Unable to Pay for Housing in the Last Year: No Number of Places Lived in the Last Year: 1 Unstable Housing in the Last Year: No FAMILY HISTORY Reviewed and updated in [employer]. Family History Problem Relation Age of Onset Cerebrovascular Disease Maternal Grandmother and great maternal grandmother Autoimmune Disease Cousin Diabetes No family hx of Hypertension No family hx of Breast Cancer No family hx of Cancer - colorectal No family hx of Alzheimer Disease No family hx of Cancer No family hx of Heart Disease No family hx of Thyroid Disease No family hx of reviewed 06/05/2006 Anesthesia Reaction No family hx of Blood Disease No family hx of MEDICATIONS Scheduled meds Medications Prior to Admission Medication Sig Dispense Refill Last Dose albuterol (PROAIR HFA/PROVENTIL HFA/VENTOLIN HFA) 108 (90 Base) MCG/ACT inhaler Inhale 2 puffs intothe lungs every 4 hours as needed for shortness of breath / dyspnea or wheezing 1 Inhaler 3 BREO ELLIPTA 200-25 MCG/INH Inhaler INHALE 1 PUFF INTO THE LUNGS DAILY 3 each 1 Chelated Magnesium 100 MG TABS Take 100 mg by mouth At Bedtime cyclobenzaprine (FLEXERIL) 10 MG tablet Take 1 tablet (10 mg) by mouth 3 times daily as needed for muscle spasms 20 tablet 0 fluticasone (FLONASE) 50 MCG/ACT nasal spray [place] 2 sprays into both nostrils daily 16 g 3 traZODone (DESYREL) 50 MG tablet Take 2 tablets (100 mg) by mouth At Bedtime 180 tablet 3 ALLERGIES Allergies Allergen Reactions Mold Dizziness and GI Disturbance Bupropion GI Disturbance and Other (See Comments) Diarrhea and stomach ache Erythromycin GI Disturbance REVIEW OF SYSTEMS A 10 point ROS was performed and negative unless otherwise noted in HPI. PHYSICAL EXAM VITAL SIGNS: BP 109/43 (BP Location: Right arm) Pulse 76 Temp 98.4 ??F (36.9 ??C) (Oral) Resp20 Ht 1.746 m (5' 8.74) Wt 96.9 kg (213 lb 9.6 oz) LMP 01/07/2006 SpO2 95% BMI 31.78 kg/m?? BMI: Estimated body mass index is 31.78 kg/m?? as calculated from the following: Height as of this encounter: 1.746 m (5' 8.74). Weight as of this encounter: 96.9 kg (213 lb 9.6 oz). Gen: No acute distress, cooperative. CV: Regular rate, rhythm, no murmurs. Respiratory: CTAB, no wheezing, crackles or rhonchi. Breathing comfortably on room air. Abd: Bowel sounds present. Soft, non-distended, non-tender to palpation in four quadrants. Extremities: Calves warm, soft, non-tender bilaterally. swelling of left upper forearm near site ofprevious IV site. No erythema or warmth. Skin: No signs of trauma / abrasions on exposed skin. Neuromuscular: Speech fluent & comprehensible. Cranial Nerves: grossly normal - 2nd CN: Pupils equal, round, reactive to light and accomodation. and visual thomas intact to confrontation. - 3rd,4th,6th CN: EOMI, appropriate pupillary responses -> stuttering of pupil with horizontal tracking, no significant nystagmus - 5th CN: facial sensation intact - 7th CN: face symmetrical - 8th CN: functional hearing bilaterally - 9th, 10th CN: palate elevates symmetrically - 11th CN: sternocleidomastoids and trapezii strong - 12th CN: tongue midline and without fasciculations LABS Recent Results (from the past 24 hour(s)) Platelet count - Routine Collection Time: 01/18/24 5:40 AM Result Value Ref Range Platelet Count 217 150 - 450 10e3/uL Extra Green Top ([place] Heparin) Tube Collection Time: 01/18/24 5:40 AM Result Value Ref Range Hold Specimen JIC IMPRESSION/PLAN: Alcon Zamora is a 48 year old female with past medical history of Lizy-Danlos syndrome, mild persistent asthma, anxiety and depression, fibromyalgia presented for a planned catheter angiogram at [facility] for left sided pulsatile tinnitus, found to have multiple acute ischemic infarctsof the frontal lobes, parietal lobes and left supramarginal gyrus after procedure with associated right sided weakness and numbness, likely embolic in nature secondary to procedure complication, complicated by post-stroke seizures, now being admitted on 01/17/2024 at [facility] for acute inpatient rehabilitation. Patient will require and benefit from PT, OT, and MAINTENANCE MACHINIST services as well as all of the ancillary services offered in the inpatient rehab setting. Admission to acute inpatient rehab: 01/17/2024 Impairment group code: 01.2 Right body, left brain stroke, multiple acute ischemic infarcts in the frontal and parietal lobes, left supramarginal gyrus following angiogram PT, OT and MAINTENANCE MACHINIST 60 minutes of each on a daily basis, in addition to rehab nursing and close management of ski lift mechanic. Impairment of ADL's: Impairment in strength, endurance, and ROM resulting in functional limitationsin patient's ability to perform ADLs Impairment of mobility: Impairment in strength, endurance, and ROM resulting in functional limitations in patient's ability to perform functional mobility Impairment of cognition/language/swallow: Impairment in cognition, language and swallowing resulting in functional limitations to care for self Medical Conditions # Cerebral infarct of the frontal lobes, parietal lobes, left supramarginal gyrus, embolic in nature, likely procedural complication # Right sided numbness, weakness # Headaches, frontal Patient was seen by [facility] interventional neuroradiology for diagnostic catheter cerebral angiogram for left sided pulsatile tinnitus. 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 - Cholesterol: Rosuvastatin 20 qhs - Blood glucose: normoglycemic, no hx of DM - AC/AP: ASA 325 mg qday per neuro - Smoking cessation - Na: Goal normonatremic - Stroke Education with patient and family during stay - Pain Regimen: - Tylenol 500-1000 q6h PRN -> patient would like scheduled - 1000 TID upon admission for headaches - Nausea: zofran PRN - Sleep: Melatonin PRN - Tone: No concerns for increased tone upon admission, will monitor - Follow up labs: CBC, BMP Mon/Thurs - VS BID & PRN # Seizure like activity at acute hospital Post-stroke seizures noted 01/13 early AM at acute hospital, given Keppra load with IV ativan to abort seizure, neurology recommended continuing Keppra 750 BID and follow up outpatient. - Keppra 750 mg BID - Neurology outpatient follow up - Outpatient hypercoagulation workup per neurology # Left arm swelling near previous IV site - noted on admission to rehab that patient had swelling of left upper forearm near site of previousIV site. No erythema or warmth. - warm compress TID - consider ultrasound to evaluate for superficial DVT if not improving # Seasonal allergies - Zyrtec 10 mg qday # Sleep - Trazodone 100 mg at bedtime - evaluate need during rehab stay # Asthma - PRINTING ESTIMATOR Breo Ellipta qday # Bowel: States current regimen helps her stay regular. - Psyllium daily - Magnesium oxide 400 mg at bedtime - PRN bowel meds available # Bladder: - PVRs x3 to ensure bladder emptying # Adjustment to disability: Will hold on ordering rehab psychology at this time, will monitor mood over course of rehab stay FEN: 7/0 Regular Thin DVT Prophylaxis: Lovenox 40 qday GI Prophylaxis: TUMS PRN Code: Full Disposition: TBD, to discuss at interdiscipinary rounds ELOS/Discharge Date: TBD. Rehab prognosis: Good Follow up Appointments on Discharge: Outpatient PCP. Outpatient PM&R. Outpatient therapies. 30 minutes spent on the date of service doing chart review, history and exam, documentation, and further activities as noted above. * Tulio Alva, MAINTENANCE MACHINIST - 01/18/2024 8:00 AM CDT 01/18/24 1200 Appointment Info Signing Clinician's Name / Credentials (MAINTENANCE MACHINIST) Tulio Alva [facility] MAINTENANCE MACHINIST General Information Onset of Illness/Injury or Date of Surgery 01/09/24 Referring Physician AMAIRANI You Patient/Family Therapy Goal Statement (MAINTENANCE MACHINIST) Get back to work Pertinent History of Current Problem leigha A Noah is a 48 year old female with past medical historyof Lizy-Danlos syndrome, mild persistent asthma, anxiety and depression, fibromyalgia presented for a planned catheter angiogram at [facility] for left sided pulsatile tinnitus on 01/09/24,found to have 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 Referred to speech therapy hereto assess cognition as well as follow-up on any potential swallowing difficulties that patient was reporting. Type of Evaluation Type of Evaluation Speech, Language, Cognition Motor Speech Comment, Motor Speech Assessment Fully intelligible speech Auditory Comprehension Comment, Assessment (Auditory Comprehension) Able to consistently follow directions Verbal Expression Comment, Assessment (Verbal Expression) No word finding difficulties evident in casual conversation. Reading Comprehension Comment, Assessment (Reading Comprehension) Not assessed but no deficits suspected Written Language Comment, Assessment (Written Language) Not assessed but no deficits suspected. Patient's figure drawing was within functional limits Cognition Cognitive Function memory deficit;attention deficit;executive function deficit Additional cognitive-linguistic evaluation indicated Completed;Please see separate report for results Cognitive Status Exam Comments RBANS completed with cumulative index score of 86 which correlates to the 18th percentile. This is likely below her historical baseline. Executive Function Deficit (Cognition) moderate deficit Attention Deficit (Cognition) moderate deficit Memory Deficit (Cognition) minimal deficit Clinical Impression Criteria for Skilled Therapeutic Interventions Met (MAINTENANCE MACHINIST Eval) Yes, treatment indicated MAINTENANCE MACHINIST Diagnosis Mild cognitive linguistic impairment. Problem List (MAINTENANCE MACHINIST) Impaired attention and executive functioning. Patient does have good insight into deficits being experienced Activity Limitations Related to Problem List (MAINTENANCE MACHINIST) Decreased level of independence with higher level IADL tasks including ability to accurately complete work. Risks & Benefits of therapy have been explained evaluation/treatment results reviewed;participants voiced agreement with care plan;participants included;patient;care plan/treatment goals reviewed Clinical Impression Comments Patient overall presenting with mild cognitive impairment. Patient does recognize the changes that she has had in her cognition and very motivated to continue improving as she has a strong desire to return back to work. Deficits in attention and processing speed were the most impaired. Patient's current level of function is below her baseline and patient would benefitfrom skilled intervention to maximize cognitive function. MAINTENANCE MACHINIST Goals Therapy Frequency (MAINTENANCE MACHINIST Eval) 6 times/week MAINTENANCE MACHINIST Predicted Duration/Target Date for Goal Attainment 02/01/24 MAINTENANCE MACHINIST Goals MAINTENANCE MACHINIST Goal 1;MAINTENANCE MACHINIST Goal 2 MAINTENANCE MACHINIST: Goal 1 Patient will utilize compensatory memory strategies to recall novel information with presence of distractions and delays with 90% accuracy MAINTENANCE MACHINIST: Goal 2 Patient will complete complex level reasoning/problem solving tasks with 90% accuracy without need for redirection. MAINTENANCE MACHINIST Discharge Planning MAINTENANCE MACHINIST Plan Initiate and pull to note dysphagia evaluation. Review scores from RBANS and engage in moderate to complex level reasoning/problem solving and attention tasks. Could engage in FAVRES as treatment MAINTENANCE MACHINIST - Acute Rehab Center Time Individual Time (minutes) - MAINTENANCE MACHINIST 60 Group Time (minutes) - MAINTENANCE MACHINIST 0 Concurrent Time (minutes) - MAINTENANCE MACHINIST 0 Co-Treatment Time (minutes) - MAINTENANCE MACHINIST 0 ARC Total Session Time (minutes) - MAINTENANCE MACHINIST 60 ARC Daily Total Session Time MAINTENANCE MACHINIST ARC Daily Total Session Time 60 ARC Daily Rehab Total Minutes 60 documented in this encounter H&P Notes * Sandi Saini MD - 01/17/2024 4:14 PM CDT Images from the original note were not included. 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 Acute Hospital Course: Per CareEverywhere and paper chart review, patient initially went to urgent care on 12/22/23 for evaluation of left ear tinnitus, CTA Head completed and overread by Dr. Gutierrez which showed concerns for asymmetric enlargement of the left occipital artery compared to right, given history of left-sided pulsatile tinnitus formal diagnostic catheter cerebral angiogram recommendedto exclude dural AVF. Patient was seen by [facility] interventional neuroradiology for diagnostic catheter cerebral angiogram on 01/09/24 for left sided pulsatile tinnitus. 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 Neurology was consulted and recommended ASA 325 mg qday, statin was recommended, and Hypercoagulation workup at outpatient setting: factor V Leiden, factor II gene mutation, Lupus anticoagulant, Cardiolipin antibody, and follow up with neurology in 8 weeks. Patient's acute hospital course was complicated by post-stroke seizures noted 01/13 early AM, given Keppra load with IV ativan to abort seizure, neurology recommended continuing Keppra 750 BID and follow up outpatient. Also with chest pain in ED, EKG and troponins were negative. During acute hospitalization, patient was seen and evaluated by PT, OT, and MAINTENANCE MACHINIST who collectively recommended that patient would benefit from ongoing therapies in the acute inpatient rehabilitation setting, and patient was admitted on 01/17/2024. In review of recent therapy notes: - Per paper chart review: - PT: Min A transfers, gait FWW x 100 ft CGA. - OT: Transfers with min A, requires cutes to attend to right side - MAINTENANCE MACHINIST: No significant communication deficits, some difficulty with swallow sujata with pill swallowing. Has NOT had formal MAINTENANCE MACHINIST assessment, will benefit from full cognitive/linguistic assessment. Upon arrival to the rehab unit, patient was seen at the bedside. Patient states she is doing okay, fatigued from the ride over, bumpy ride caused a frontal headache which she has had regularly over the last few days. Patient denies any other significant pain other than some discomfort near site of previous L forearm IV. Patient states therapies have gone well thus far, able to walk 100 ft with therapies, noting incoordination, balance, weakness. 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 Patient states she alsohas trouble swallowing pills, stating it will feel like it gets stuck, and was unable to eat chicken the other day due to difficulty swallowing. She is able to tolerate thin liquids but really needsto focus to get liquids down. No concerns for bowel or bladder, LBM 01/15/23. Feels she is emptying her bladder. PAST MEDICAL HISTORY Reviewed and updated in [facility]. 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 Past Surgical History: Procedure Laterality Date C HOME TEACHING GRADES 9 THRU 12 TEACHER PROCEDURE DATE: vag del. C HOME TEACHING GRADES 9 THRU 12 TEACHER PROCEDURE DATE: 2000 tubal ligation C HOME TEACHING GRADES 9 THRU 12 TEACHER PROCEDURE DATE: 1994 D&C CARDIAC SURGERY 06/2006 heart defect repair ESOPHAGOSCOPY, GASTROSCOPY, DUODENOSCOPY (EGD), COMBINED N/A 02/08/2021 Procedure: ESOPHAGOGASTRODUODENOSCOPY (EGD); Surgeon: Tuan Miller MD; Location: GI GI SURGERY 09/2020 gallbladder removed HC KNEE SCOPE,MED/LAT MENISECTOMY 08/04/13 LT HEART CATH, CLOSURE ATRIAL SEPTAL DEFECT 06/20/06 amplatzer septal occluder- serial #[id number] RW HOME TEACHING GRADES 9 THRU 12 TEACHER (ABSTRACTED) pneumonia several times SURGICAL PATHOLOGY EXAM 02/2012 excision of lipoma on chest wall ZZC VAGINAL HYSTERECTOMY 01/30/06 SOCIAL HISTORY Reviewed and updated in [facility]. Living Situation: Lives with Sandor, in split level home , 2 ALEXIS home with rail in front door, no rail in garage (also 2 ALEXIS), 8-9 steps to get to a floor with a bedroom or bathroom. 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 She has never used smokeless tobacco. She reports that she does not currently use alcohol. She reports that she does not use drugs. PRIOR FUNCTIONAL HISTORY Pt was independent with all ADLs/IADLs, transfers, mobility and gait with no assistive device. 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 No Social History Narrative Not on file Social Determinants of Health Financial Resource Strain: Low Risk (01/10/2023) Received from [facility] Overall Financial Resource Strain (CARDIA) Difficulty of Paying Living Expenses: Not hard at all Food Insecurity: No Food Insecurity (01/10/2023) Received from [facility] Hunger Vital Sign Worried About Running Out of Food in the Last Year: Never true Ran Out of Food in the Last Year: Never true Transportation Needs: No Transportation Needs (01/10/2023) Received from [facility] PRAPARE - Transportation Lack of Transportation (Medical): No Lack of Transportation (Non-Medical): No Physical Activity: Sufficiently Active (01/10/2023) Received from [facility] Exercise Vital Sign Days of Exercise per Week: 5 days Minutes of Exercise per Session: 30 min Stress: Stress Concern Present (01/10/2023) Received from [facility] [employer] [place] [employer] - Occupational Stress Questionnaire Feeling of Stress : Rather much Social Connections: Socially Isolated (01/10/2023) Received from [facility] Social Connection and Isolation Panel [NHANES] Frequency of Communication with Friends and Family: Once a week Frequency of Social Gatherings with Friends and Family: Once a week Attends Baptism Services: Never Active Member of Clubs or Organizations: No Attends Club or Organization Meetings: Never Marital Status: Interpersonal Safety: Not At Risk (01/10/2023) [facility] Humiliation, Afraid, Rape, and Kick questionnaire Fear of Current or Ex-Partner: No Emotionally Abused: No Physically Abused: No Sexually Abused: No Housing Stability: Low Risk (01/10/2023) [facility] Housing Stability Vital Sign Unable to Pay for Housing in the Last Year: No Number of Places Lived in the Last Year: 1 Unstable Housing in the Last Year: No FAMILY HISTORY Reviewed and updated in [email or web address]. Family History Problem Relation Age of Onset Cerebrovascular Disease Maternal Grandmother and great maternal grandmother Autoimmune Disease Cousin Diabetes No family hx of Hypertension No family hx of Breast Cancer No family hx of Cancer - colorectal No family hx of Alzheimer Disease No family hx of Cancer No family hx of Heart Disease No family hx of Thyroid Disease No family hx of reviewed 06/05/2006 Anesthesia Reaction No family hx of Blood Disease No family hx of MEDICATIONS Scheduled meds Medications Prior to Admission Medication Sig Dispense Refill Last Dose albuterol (PROAIR HFA/PROVENTIL HFA/VENTOLIN HFA) 108 (90 Base) MCG/ACT inhaler Inhale 2 puffs intothe lungs every 4 hours as needed for shortness of breath / dyspnea or wheezing 1 Inhaler 3 BREO ELLIPTA 200-25 MCG/INH Inhaler INHALE 1 PUFF INTO THE LUNGS DAILY 3 each 1 Chelated Magnesium 100 MG TABS Take 100 mg by mouth At Bedtime cyclobenzaprine (FLEXERIL) 10 MG tablet Take 1 tablet (10 mg) by mouth 3 times daily as needed for muscle spasms 20 tablet 0 fluticasone (FLONASE) 50 MCG/ACT nasal spray [place] 2 sprays into both nostrils daily 16 g 3 traZODone (DESYREL) 50 MG tablet Take 2 tablets (100 mg) by mouth At Bedtime 180 tablet 3 ALLERGIES Allergies Allergen Reactions Mold Dizziness and GI Disturbance Bupropion GI Disturbance and Other (See Comments) Diarrhea and stomach ache Erythromycin GI Disturbance REVIEW OF SYSTEMS A 10 point ROS was performed and negative unless otherwise noted in HPI. PHYSICAL EXAM VITAL SIGNS: BP 122/67 (BP Location: Right arm) Pulse 66 Temp 98.3 ??F (36.8 ??C) (Oral) Resp20 Ht 1.746 m (5' 8.74) Wt 96.9 kg (213 lb 9.6 oz) LMP 01/07/2006 SpO2 96% BMI 31.78 kg/m?? BMI: Estimated body mass index is 31.78 kg/m?? as calculated from the following: Height as of this encounter: 1.746 m (5' 8.74). Weight as of this encounter: 96.9 kg (213 lb 9.6 oz). Gen: No acute distress, cooperative. CV: Regular rate, rhythm, no murmurs. Respiratory: CTAB, no wheezing, crackles or rhonchi. Breathing comfortably on room air. Abd: Bowel sounds present. Soft, non-distended, non-tender to palpation in four quadrants. Extremities: Calves warm, soft, non-tender bilaterally. swelling of left upper forearm near site ofprevious IV site. No erythema or warmth. Skin: No signs of trauma / abrasions on exposed skin. Neuromuscular: Speech fluent & comprehensible. Cranial Nerves: grossly normal - 2nd CN: Pupils equal, round, reactive to light and accomodation. and visual thomas intact to confrontation. - 3rd,4th,6th CN: EOMI, appropriate pupillary responses -> stuttering of pupil with horizontal tracking, no significant nystagmus - 5th CN: facial sensation intact - 7th CN: face symmetrical - 8th CN: functional hearing bilaterally - 9th, 10th CN: palate elevates symmetrically - 11th CN: sternocleidomastoids and trapezii strong - 12th CN: tongue midline and without fasciculations Sensory: Normal to light touch in bilateral upper and lower extremities Motor: Right Left Shoulder abd 3/5 5/5 Elbow Flexion 3/5 5/5 Elbow Extension 3/5 5/5 Wrist Extension 3/5 5/5 Wrist Flexion 3/5 5/5 FDP 3/5 5/5 Abd dig. Minimi 3/5 5/5 Hip Flexion 3/5 5/5 Knee Extension 4/5 5/5 Knee Flexion 4/5 5/5 Dorsiflexion 5/5 5/5 EHL 5/5 5/5 Plantarflexion 5/5 5/5 Carter's test: negative bilaterally Babinski reflex: normal downgoing bilaterally Tone per Modified Diony Scale: no concerns Abnormal movements: None Coordination: No dysmetria on finger to nose b/l LABS No results found for this or any previous visit (from the past 24 hour(s)). IMPRESSION/PLAN: Alcon Zamora is a 48 year old female with past medical history of Lizy-Danlos syndrome, mild persistent asthma, anxiety and depression, fibromyalgia presented for a planned catheter angiogram at [facility] for left sided pulsatile tinnitus, found to have multiple acute ischemic infarctsof the frontal lobes, parietal lobes and left supramarginal gyrus after procedure with associated right sided weakness and numbness, likely embolic in nature secondary to procedure complication, complicated by post-stroke seizures, now being admitted on 01/17/2024 at [facility] for acute inpatient rehabilitation. Patient will require and benefit from PT, OT, and MAINTENANCE MACHINIST services as well as all of the ancillary services offered in the inpatient rehab setting. Admission to acute inpatient rehab: 01/17/2024 Impairment group code: 01.2 Right body, left brain stroke, multiple acute ischemic infarcts in the frontal and parietal lobes, left supramarginal gyrus following angiogram PT, OT and MAINTENANCE MACHINIST 60 minutes of each on a daily basis, in addition to rehab nursing and close management of ski lift mechanic. Impairment of ADL's: Impairment in strength, endurance, and ROM resulting in functional limitationsin patient's ability to perform ADLs Impairment of mobility: Impairment in strength, endurance, and ROM resulting in functional limitations in patient's ability to perform functional mobility Impairment of cognition/language/swallow: Impairment in cognition, language and swallowing resulting in functional limitations to care for self Medical Conditions # Cerebral infarct of the frontal lobes, parietal lobes, left supramarginal gyrus, embolic in nature, likely procedural complication # Right sided numbness, weakness # Headaches, frontal Patient was seen by [facility] interventional neuroradiology for diagnostic catheter cerebral angiogram for left sided pulsatile tinnitus. 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 - Cholesterol: Rosuvastatin 20 qhs - Blood glucose: normoglycemic, no hx of DM - AC/AP: ASA 325 mg qday per neuro - Smoking cessation - Na: Goal normonatremic - Stroke Education with patient and family during stay - Pain Regimen: - Tylenol 500-1000 q6h PRN -> patient would like scheduled - 1000 TID upon admission for headaches - Nausea: zofran PRN - Sleep: Melatonin PRN - Tone: No concerns for increased tone upon admission, will monitor - Follow up labs: CBC, BMP Mon/Thurs - VS BID & PRN # Seizure like activity at acute hospital Post-stroke seizures noted 01/13 early AM at acute hospital, given Keppra load with IV ativan to abort seizure, neurology recommended continuing Keppra 750 BID and follow up outpatient. - Keppra 750 mg BID - Neurology outpatient follow up - Outpatient hypercoagulation workup per neurology # Left arm swelling near previous IV site - noted on admission to rehab that patient had swelling of left upper forearm near site of previousIV site. No erythema or warmth. - warm compress TID - consider ultrasound to evaluate for superficial DVT if not improving # Seasonal allergies - Zyrtec 10 mg qday # Sleep - Trazodone 100 mg at bedtime - evaluate need during rehab stay # Asthma - PRINTING ESTIMATOR Breo Ellipta qday # Bowel: States current regimen helps her stay regular. - Psyllium daily - Magnesium oxide 400 mg at bedtime - PRN bowel meds available # Bladder: - PVRs x3 to ensure bladder emptying # Adjustment to disability: Will hold on ordering rehab psychology at this time, will monitor mood over course of rehab stay FEN: Regular Thin DVT Prophylaxis: Lovenox 40 qday GI Prophylaxis: TUMS PRN Code: Full Disposition: TBD, to discuss at interdiscipinary rounds ELOS/Discharge Date: TBD. Rehab prognosis: Good Follow up Appointments on Discharge: Outpatient PCP. Outpatient PM&R. Outpatient therapies. Seen and discussed with Sandi Saini MD, PM&R staff physician Robin Sibley, DO PGY-3 Physical Medicine and Rehabilitation .Physician Attestation I, Sandi Saini MD, saw this patient and agree with the findings and plan of care as documented in the note. Items personally reviewed/procedural attestation: vitals, labs, and I and agree with the interpretation documented in the note. 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 Prognosis:??good Estimated length of stay: +/- 14 days 60 minutes spent on the date of service doing chart review, history and exam, documentation, and further activities as noted above. Sandi Saini MD documented in this encounter Consult Notes * Leanna Call - 01/19/2024 9:49 AM CDTAssociated Order(s): SOCIAL WORK IP CONSULT Social Work: Initial Assessment with Discharge Plan Patient Name: Alcon Zamora : 1975 Age: [age] year old Completed assessment with: Chart review and interview with patient. Admitted to ARU: 01/17/2024 Presenting Information Date of SW assessment: January 19, 2024 Health Care Directive: Health Care Directive Agent (if patient not able to make decisions) Primary Health Care Agent: Patient/self Secondary Health Care Agent: EMERITA Living Situation: Lives with Sandor, in split level home , 2 [address]LEXIS home with rail in front door, no rail in garage (also 2 ALEXIS), 8-9 steps to get to a floor with a bedroom or bathroom. Previous Functional Status: Pt was independent with all ADLs/IADLs, transfers, mobility and gait with no assistive device. DME available: See therapy evaluation for more information Patient and family understanding of hospitalization: appropriate Cultural/Language/Spiritual Considerations: Pt is a 48 yr old female, , , belgian speaking, no affiliated hinduism or consideration Physical Health Reason for admission: CHIEF COMPLAINT Cerebral infarct of the frontal lobes, parietal lobes, left supramarginal gyrus, embolic in nature,likely procedural complication HISTORY OF PRESENT ILLNESS Alcon Zmaora is a 48 year old female with past medical history of Lizy-Danlos syndrome, mild persistent asthma, anxiety and depression, fibromyalgia presented for a planned catheter angiogram at [facility] for left sided pulsatile tinnitus on 01/09/24, found to have multiple acute ischemic infarcts of the frontal lobes, parietal lobes and left supramarginal gyrus after procedure with associated right sided weakness and numbness, likely embolic in nature secondary to procedure complication, complicated by post-stroke seizures, now being admitted on 01/17/2024 at [facility] for acute inpatient rehabilitation. Provider Information Primary Care Physician: Denise Woodson [phone] [id number] [place] [id number] [facility] will schedule PCP apt at discharge. Biofuels Research Scientist: SONALI Mental Health/Chemical Dependency: Diagnosis: Pt reported history of depression and anxiety. Pt usually does aromatherapy and meditation. Pt reported she's been taking Atarax for last couple days as she's had panic attack and anxiety.Pt reported not interested in other services at the moment. Alcohol/Tobacco/Narcotis: Per chart review: Alcon Zamora reports that she has never smoked. She has never used smokeless tobacco. She reports that she does not currently use alcohol. She reports that she does not use drugs. Support/Services in Place: medication. Services Needed/Recommended: Cj and Health Psychology support while on ARU available. Sexuality/Intimacy: Not discussed Support System Marital Status: Family support: Sandor (), Silas (son), Erica (daughter) in [place], Kenji (son) in [place]. Pt has 2 granddaughters. Other support available: na Community Resources Current in home services: Pt denies current home services. 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 Income Source: Pt work and also works Education: not discussed Financial Concerns: Pt reported trying to figure out short term disability and FMLA. Dual householdand need to figure out finances. Pt will talk to work on Saturday for FMLA paperwork. PT reported short term disability won't start until 30 days. Informed Pt to get FMLA paperwork and give it directlyto Doctor. Insurance: [employer] OPEN ACCESS Discharge Plan Patient and family discharge goal: TBD, pending progress. Goal is to go home. Provided Education on discharge plan: Evaluations and discharge recommendations pending. Patient agreeable to discharge plan: Pending further discussion. Evaluations and discharge recommendations pending. Provided education and attained signature for Medicare IM and IRF Patient Rights and Privacy Information provided to patient : NA Provided patient with [facility] Resources: Provided booklet and [facility] [place] Barriers to discharge: none at the moment Discharge Recommendations Disposition: See above Transportation Needs: Additional comments Discharge TBD, ELOS +/- 14 days . Evals and discharge needs pending. SW will remain available and continue to follow as needs arise. Pt would like information on how to transfer her care to [place]. Doesn't want to go back to [place]. VIDHYA Pain Assessment Pain Effect on Sleep Over the past 5 days, how much of the time has pain made it hard for you to sleep at night? 0. Does not apply - I have not had any pain or hurting in the past 5 days Pain Interference with Therapy Activities Over the past 5 days, how often have you limited your participation in rehabilitation therapy sessions due to pain? 0. Does not apply - I have not had any pain or hurting in the past 5 days Pain Interference with Day-to-Day Activities Over the past 5 days, how often have you limited your day-to-day activities (excluding rehabilitation therapy sessions) because of pain? 1. Rarely or not at all Leanna Call [facility], [facility] [place] [facility] Social Work [address] [place] [id number] (PH [phone] or [phone]) documented in this encounter Nursing Notes * Jaye Maddox, GEMA - 01/17/2024 2:07 PM CDT Pt was admitted to the unit today in a stretcher. Alert and oriented x4. Able to make needs known. A1 with walker and gait belt. Continent of bowel and bladder. LBM 5/.Pt on seizure precautions. On regular diet, thin liquids and takes pills whole 1 @ time. Denied pain/SOB at the moment. Nursing will continue to monitor. documented in this encounter Miscellaneous Notes * Plan of Care - Escobar David RN - 01/19/2024 10:07 PM CDT FOCUS/GOAL Safety management and Prevention of secondary complications ASSESSMENT, INTERVENTIONS AND CONTINUING PLAN FOR GOAL: Pt had rapid response called, aid sent urgent message via [employer] and I entered the room pt appearedto be having a seizure. I was able to communicate with the pt after about 10 seconds or so once placing myself in her line of site. She had rapid eye movement and some slight shaking. BP was hypertensive but O2 and other VS stable. PT described onset of symptoms as a headache with varying intensity, intensifying just before the seizure occurred located right behind her eyes. She also said she hadsymptoms of facial numbness as well as a twitch in her right leg. Rapid was called and while waiting for them to arrive pt stabilized and was able to describe her symptoms and answer orientation quest ions. Pt appeared to have another seizure right when the rapid team arrived, and another small episode subsequentally 20-30 min after. Keppra given per directive of practitioner. Transferred to [address] [place] [address]. Goal Outcome Evaluation: * Plan of Care - Tulio Alva MAINTENANCE MACHINIST - 01/19/2024 10:07 PM CDT Speech Language Therapy Discharge Summary Reason for therapy discharge: [facility] Progress towards therapy goal(s). See goals on Care Plan in Epic electronic health record for goal details. Goals not met. Barriers to achieving goals: discharge from facility. Therapy recommendation(s): Continued therapy is recommended. Rationale/Recommendations: Address higher level cognition. Patient has strong desire to return to work and fears not being able to adequately complete from a cognitive perspective. Initially reporting some swallowing difficulties that seem to have resolved. * Plan of Care - Angie Tripp RN - 01/19/2024 2:55 PM CDT Goal Outcome Evaluation: VS: Diastolic BP is low, fluid encouraged O2: 95% at ra Output: See I and O flow sheet Last BM: 01/18/24 Activity: Mod independent with walker Skin: intact Pain: Denies pain CMS: Intact Dressing: None Diet: Regular/ Thin LDA: None Equipment: T belt, walker Plan: We will continue current plan of care Additional Info: * Plan of Care - Shanae Feldman OTR - 01/19/2024 12:27 PM CDT Civil Engineer Post-Acute Rehab OT: Discharge Plan: Home with spouse assist as needed and OP therapy Precautions: falls Current Status: ADLs: Mobility: mod-I w/ fww in room Grooming: SBA standing at sink Dressing: UBD: set up seated; LBD: set up seated EOB; Feet: SBA seated EOB Bathing: SBA seated on ETB w/ hand held shower head, standing w/ grab bar Toileting: SBA with FWW and grab bars IADLs: TBD, I at baseline Vision/Cognition: wears corrective lens 08/04; Need to further assess and address vision - reportingdouble and blurred vision w/ increased effort to accommodate and refocus, improving since admission Assessment: Facilitation of welcome window shower and full ADL routine, pt completing primarily w/ SBA seated on ETB. Progressing from CGA to SBA w/ fww w/ hallway and in room mob. Completed FB dressing, toileting, and standing g/h w/ fww and SBA, discussed with pt and PT mod-I in room. Other Barriers to Discharge (DME, Family Training, etc): Pt has 9 stairs to get to bedroom/bathroom. Pt has a high height ballistic expert tub/shower combo (need to measure to see how high the step into the shower is). * Plan of Care - Escobar David RN - 01/19/2024 7:35 AM CDT FOCUS/GOAL Medication management, Medical management, and Prevention of secondary complications ASSESSMENT, INTERVENTIONS AND CONTINUING PLAN FOR GOAL: Pt doing well. Denied pain, slept throughout the night. Ambulated to the bathroom 1x during shift standby assist with walker. PRN atarax given with trazadone for bed. Regular thin diet, pills whole. On seizure precautions. No concerns at this time. Goal Outcome Evaluation: * Plan of Care - Janna Najera OTR - 01/18/2024 4:18 PM CDT Images from the original note were not included. Civil Engineer Post-Acute Rehab OT: Discharge Plan: Home with spouse assist as needed and OP therapy Precautions: fall, Current Status: ADLs: Mobility: CGA w FWW Grooming: CGA standing at sink- Dressing: UBD:set up seated; LBD: min A sitting Bathing: TBD Toileting: CGA with FWW and grab bars IADLs: TBD,I at baseline Vision/Cognition: wears corrective lens 08/04; Need to further assess and address vision. 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 Patient is below baseline with ADLS and IADLs. Pt would benefit from skilled OT services to return to [facility] 1-2 weeks. Other Barriers to Discharge (DME, Family Training, etc): Pt has 9 stairs to get to bedroom/bathroom. Pt has a high height ballistic expert tub/shower combo (need to measure to see how high the step into the shower is). * Plan of Care - Janna Najera OTR - 01/18/2024 4:17 PM CDT 01/18/24 1430 Appointment Info Signing Clinician's Name / Credentials (OT) JAIMIE Gibbs/Terrell Living Environment People in Home spouse;child(vipul), adult Current Living Arrangements house Home Accessibility stairs to enter home Number of Stairs, Main Entrance 2 Stair Railings, Main Entrance none Number of Stairs, Within Home, Primary nine Stair Railings, Within Home, Primary none Transportation Anticipated car, drives self;family or friend will provide Living Environment Comments Bathroom and bedroom are upstairs. Standard height toilets. Tub/shower combo upstairs with high krystle ballistic expert tub. Downstairs bathroom has a standard tub/shower combo. No grab bars in bathroom. 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 Was previouslyI with all ADLs and IADLs Instrumental Activities of Daily Living (IADL) Previous Responsibilities meal prep;housekeeping;laundry;shopping;yardwork;medication management;fin ances;driving;work IADL Comments Pt was I with all IADLs previously Previous Level of Function/Home Environm Bathing, Previous Functional Level independent Grooming, Previous Functional Level independent Dressing, Previous Functional Level independent Eating/Feeding, Previous Functional Level independent Toileting, Previous Functional Level independent BADLs, Previous Functional Level independent IADLs, Previous Functional Level independent Bed Mobility, Previous Functional Level independent Transfers, Previous Functional Level independent Household Ambulation, Previous Functional Level independent Stairs, Previous Functional Level independent Community Ambulation, Previous Functional Level independent General Information Onset of Illness/Injury or Date of Surgery 01/12/24 Referring Physician Parminder Del Angel MD Patient/Family Therapy Goal Statement (OT) To be independent and go back to work. Additional Occupational Profile Info/Pertinent History of Current Problem Pt reports she likes gardening and baking, spending time with her grandkids Performance Patterns (Routines, Roles, Habits) , mother, employee, grandmother, gardening, baking Left Upper Extremity (Weight-bearing Status) full weight-bearing (FWB) Right Upper Extremity (Weight-bearing Status) full weight-bearing (FWB) Left Lower Extremity (Weight-bearing Status) full weight-bearing (FWB) Right Lower Extremity (Weight-bearing Status) full weight-bearing (FWB) Cognitive Status Examination Orientation Status orientation to person, place and time Follows Commands WNL Visual Perception Visual Impairment/Limitations corrective lenses full-time Impact of Vision Impairment on Function (Vision) Pt reports seeing double vision when looking to the R and blurry vision looking to the L. Sensory Sensory Comments when fatigued, pt reports R facial numbness and tingling Pain Assessment Patient Currently in Pain No Posture Posture not impaired Range of Motion Comprehensive General Range of Motion no range of motion deficits identified Strength Comprehensive (MMT) General Manual Muscle Testing (MMT) Assessment upper extremity strength deficits identified;hand strength deficits identified Upper Extremity (Manual Muscle Testing) Comment, MMT: Upper Extremity BUE shoulder strength 4/5 MMT Hand Strength Right hand service counter cashier (pounds) 30 Left hand service counter cashier (pounds) 48 Coordination Left hand, nine hole peg test (seconds) 20 Right hand, nine hole peg test (seconds) 33 Clinical Impression Criteria for Skilled Therapeutic Interventions Met (OT) Yes, treatment indicated OT Diagnosis Pt is below baseline for ADLs and IADLs OT Problem List-Impairments impacting ADL problems related to;activity tolerance impaired;motor control;sensation;strength;sensory feedback;vision ADL comments/analysis below baseline ADL/IADL Assessment of Occupational Performance 5 or more Performance Deficits Identified Performance Deficits bathing, transfers, LB dressing, activity tolerance, FMC Planned Therapy Interventions (OT) ADL retraining;IADL retraining;bed mobility training;cognition;fine motor coordination training;groups;strengthening;transfer training;home program guidelines;progre ssive activity/exercise;risk factor education Clinical Decision Making Complexity (OT) detailed assessment/moderate complexity Risk & Benefits of therapy have been explained evaluation/treatment results reviewed;care plan/treatment goals reviewed;risks/benefits reviewed;current/potential barriers reviewed;participants voiced agreement with care plan;participants included;patient Clinical Impression Comments Alcon Zamora is a 48 year old female with past medical history of Lizy-Danlos syndrome, mild persistent asthma, anxiety and depression, fibromyalgia presented for a planned catheter angiogram, found to have 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 Patient is below baseline with ADLS and IADLs. Pt would benefit from skilled OT services toreturn to [facility] weeks. OT Total Evaluation Time OT Eval, Moderate Complexity Minutes (13416) 30 OT Goals Therapy Frequency (OT) 6 times/week OT Predicted Duration/Target Date for Goal Attainment 01/31/24 OT Goals Hygiene/Grooming;Upper Body Dressing;Lower Body Dressing;Upper Body Bathing;Lower Body Bathing;Bed Mobility;Transfers;Toilet Transfer/Toileting;Meal Preparation;Home Management;OT Goal 1;OT Goal 2 OT: Hygiene/Grooming modified independent OT: Upper Body Dressing Modified independent OT: Lower Body Dressing Modified independent OT: Upper Body Bathing Modified independent OT: Lower Body Bathing Modified independent OT: Bed Mobility Modified independent OT: Transfer Modified independent OT: Toilet Transfer/Toileting Modified independent OT: Meal Preparation Modified independent OT: Home Management Modified independent OT: Goal 1 Pt will be mod I for shower transfer OT: Goal 2 Pt will demonstrate independence with completing HEP Self-Care/Home Management Self-Care/Home Mgmt/ADL, Compensatory, Meal Prep Minutes (73711) 30 Symptoms Noted During/After Treatment (Meal Preparation/Planning Training) fatigue Treatment Detail/Skilled Intervention Focus on environmental room modifications to provide easier walkway for pt. Pt participated in g/h and oral cares at [facility]. Pt completed UB and LB dressing EOB. See below for add details., OT Discharge Planning OT Plan Ambulate to shower with FWW > ETB, complete ggs, further vision assessment Total Session Time Timed Code Treatment Minutes 30 Total Session Time (sum of timed and untimed services) 60 Post Acute Settings Only What unit is patient on? Acute Rehab OT - Acute Rehab Center Time Individual Time (minutes) - OT 60 Group Time (minutes) - OT 0 Concurrent Time (minutes) - OT 0 Co-Treatment Time (minutes) - OT 0 ARC Total Session Time (minutes) - OT 60 ARC Daily Total Session Time OT ARC Daily Total Session Time 60 ARC Daily Rehab Total Minutes 180 Oral Hygiene Complete independence for oral hygiene tasks no Describe performance OT: CGA st sink Grooming (except oral cares) Grooming Task Performed Hair grooming;Washing hands;Washing face Grooming Comment OT: CGA at [facility] Upper Body Dressing Describe performance Set up A seated Lower Body Dressing (Pants/Undergarments) Describe performance Min A to washing machine loader and puller hips, pt able to thread BLE Sit to Stand Assistance Needed Adaptive equipment Physical Assistance Level Less than 25% Comment Min A FWW Sitting to Standing CARE Score 3 * Pharmacy-Medication Regimen Review - Damaris Adkins RP - 01/18/2024 12:18 PM CDT Pharmacy Medication Regimen Review Alcon Zamora is a 48 year old female who is currently in the Acute Rehab Unit. Assessment: All medications have an appropriate indications, durations and no unnecessary use was found Plan: Continue current treatment. FYI: Sertraline 50 mg was last dispensed on 12/26/23 38 tablets for 38 days. Not sure if pt is currently on it. Attending provider will be sent this note for review. If there are any emergent issues noted above,pharmacist will contact provider directly by phone. Pharmacy will periodically review the resident's medication regimen for any PRN medications not administered in > 72 hours and discontinue them. The pharmacist will discuss gradual dose reductionsof psychopharmacologic medications with interdisciplinary team on a regular basis. Please contact pharmacy if the above does not answer specific medication questions/concerns. Background: A pharmacist has reviewed all medications and pertinent medical history today. Medications were reviewed for appropriate use and any irregularities found are listed with recommendations. Current Facility-Administered Medications: acetaminophen (TYLENOL) tablet 500-1,000 mg, 500-1,000 mg, Oral, Q6H PRN, Danya You PA, 1,000 mg at 01/17/24 2122 albuterol (PROVENTIL HFA/VENTOLIN HFA) inhaler, 1-2 puff, Inhalation, Q6H PRN, Danya You PA aspirin (ASA) tablet 325 mg, 325 mg, Oral, Daily, Danya You PA, 325 mg at 01/18/24 0803 calcium carbonate (TUMS) chewable tablet 500 mg, 500 mg, Oral, TID PRN, Danya You PA cetirizine (zyrTEC) solution 10 mg, 10 mg, Oral, Daily, Danya You PA, 10 mg at 01/18/24 1132 enoxaparin ANTICOAGULANT (LOVENOX) injection 40 mg, 40 mg, Subcutaneous, Q24H, Danya You PA, 40 mg at 01/18/24 0803 fluticasone-vilanterol (BREO ELLIPTA) 200-25 MCG/ACT inhaler 1 puff, 1 puff, Inhalation, Daily, Danya You PA, 1 puff at 01/18/24 1130 hydrOXYzine HCl (ATARAX) tablet 25 mg, 25 mg, Oral, Q6H PRN OR hydrOXYzine HCl (ATARAX) tablet 50 mg, 50 mg, Oral, Q6H PRN, Danya You PA levETIRAcetam (KEPPRA) tablet 750 mg, 750 mg, Oral, BID, Danya You PA, 750 mg at 803 LORazepam (ATIVAN) tablet 1 mg, 1 mg, Oral, Q4H PRN, Danya You PA magnesium oxide (MAG-OX) tablet 400 mg, 400 mg, Oral, At Bedtime, Danya You PA, 400 mg at01/17/242122 ondansetron (ZOFRAN ODT) ODT tab 4 mg, 4 mg, Oral, Q6H PRN, Danya You PA Patient is already receiving anticoagulation with heparin, enoxaparin (LOVENOX), warfarin (COUMADIN) or other anticoagulant medication, , Does not apply, Continuous PRN, Danya You PA psyllium (METAMUCIL/KONSYL) Packet 1 packet, 1 packet, Oral, Daily, Danya You PA, 1 packet at 01/18/24 1130 rosuvastatin (CRESTOR) tablet 20 mg, 20 mg, Oral, At Bedtime, Danya You PA, 20 mg at 01/17/242122 traZODone (DESYREL) tablet 100 mg, 100 mg, Oral, At Bedtime, Danya You PA, 100 mg at 01/17/242122 No current outpatient prescriptions on file. PMH: Cerebral infarct of the frontal lobes, parietal lobes, left supramarginal gyrus, (likely procedural complication); Right sided numbness & weakness; Frontal Headaches; Seizure like activity at acute hospital; Seasonal allergies; Lizy-Danlos syndrome; mild persistent asthma; anxiety and depression and fibromyalgia Associated attestation - Sandi Saini MD - 01/18/2024 1:30 PM CDT .Physician Attestation I agree with the information in this note. Sandi Saini MD * Plan of Care - Escobar David RN - 01/18/2024 7:58 AM CDT FOCUS/GOAL Medication management, Mobility, and Prevention of secondary complications ASSESSMENT, INTERVENTIONS AND CONTINUING PLAN FOR GOAL: Pt asleep throughout most of the shift, but has been awake since around 0500. Stated want for atarax to be changed to a scheduled med due to forgetfulness. Also wants to establish care with a [place] neurologist and follow up with the complications that occurred at [place], where she was previouslyhospitalized. Sticky note left for provider. Transfers with walker standby assist. PVR's completed.Continent of bowel/bladder. Uses call light appropriately; denied pain. On seizure precautions. Regular thin diet, takes pills whole. Goal Outcome Evaluation: * Plan of Care - Per Villanueva RN - 01/18/2024 12:38 AM CDT Goal Outcome Evaluation: Plan of Care Reviewed With: patient Overall Patient Progress: improvingOverall Patient Progress: improving Overall pt had no acute issue this sift. Pt is alert and oriented x 4. Able to make needs known. Ptis continent of both bowel and bladder. Transfers with assist of 1 using a walker and gait belt. Bladder scan done x 2 this shift. PVR less than 20. Pt is on regular diet. Ate 100 percent of meal this shift. No complain at this time Will continue with POC * Plan of Care - Natalie Issa PT - 01/17/2024 4:48 PM CDT Physical Therapy: Initial evaluation started, patient requires assist of 1 and use of FWW for transfers and gait for safe mobility. Educated patient on therapy expectations and processes at [facility], patient and family verbalized understanding. documented in this encounter Plan of Treatment Upcoming Encounters Date Type Department Care Team (Late st Contact Info) Description 03/23/2024 10:30 AM CDT Office Visit [facility] [address] [place] [id number] Denise Woodson Ra, NANNY CAREGIVER [facility] [address] [place] [address] documented as of this encounter Procedures Procedure Name Priority Date/Time Associated Diagnosis Comments CT HEAD W/O CONTRAST Routine 01/19/2024 10:34 PM CDT EKG 12-LEAD, TRACING ONLY STAT 01/19/2024 10:33 PM CDT CBC WITH PLATELETS AND DIFFERENTIAL STAT 01/19/2024 9:33 PM CDT CBC WITH PLATELETS & DIFFERENTIAL STAT 01/19/2024 9:33 PM CDT INR Routine 01/19/2024 9:33 PM CDT PROLACTIN STAT 01/19/2024 9:33 PM CDT PARTIAL THROMBOPLASTIN TIME Routine 01/19/2024 9:33 PM CDT FIBRINOGEN ACTIVITY Routine 01/19/2024 9 :33 PM CDT EXTRA TUBE Routine 01/18/2024 5:40 AM CDT EXTRA GREEN TOP (LITHIUM HEPARIN) TUBE Routine 01/18/2024 5:40 AM CDT PLATELET COUNT Timed 01/18/2024 5:40 AM CDT documented in this encounter Results * CT Head w/o Contrast (01/19/2024 10:34 [...] the vertex were obtained without intravenous contrast. Forestry Biology Specialist (topogram) image(s) also obtained and reviewed. FINDINGS: [...] the vertex were obtained without intravenous contrast. Forestry Biology Specialist (topogram) image(s) also obtained and reviewed. FINDINGS: [...] findings. ANA LATHAM MD Randy Kwon APRN ATTENDANCE OFFICER IMG CT ORDERABLES * EKG 12-lead, complete (01/19/2024 10:33 PM CDT) Systolic Blood Pressure mmHg RADIOLOGY RESULTS Diastolic Blood Pressure mmHg RADIOLOGY RESULTS Ventricular Rate 84 BPM RAD IOLOGY RESULTS Atrial Rate 84 BPM RADIOLOG Y RESULTS CA Interval 168 ms RADIOLOG Y RESULTS QRS Duration 82 ms RADIOLO GY RESULTS QT 374 ms RADIOLOGY RESULTS QTc 441 ms RADIOLOGY RESULTS P [place] 30 degrees RADIOLOGY RESULTS R AXIS 36 degrees RADIOLOGY RESULTS T [place] -13 degrees RADIOLOGY RESULTS Interpretation ECG Sinus rhythm with frequent Premature ventricular complexes Abnormal ECG No previous ECGs available Confirmed by MD MAN JANE ([id number]) on 01/20/2024 9:02:28 AM RADIOLOGY RESULTS 01/19/2024 10:3 3 PM CDT 01/20/2024 9:02 AM CDT Randy Kwon NANNY CAREGIVER ATTENDANCE OFFICER ECG ORDERABLES RADIOLOGY RESULTS * (ABNORMAL) CBC with platelets and differential (01/19/2024 9:33 PM CDT) WBC Count 11.4(H) 4.0 - 11.0 10e3/uL 01/19/2024 9:57 PM CDT [facility] RBC Count 4.97 3.80 - 5.20 10e6/uL 01/19/2024 9:57 PM CDT [facility] Hemoglobin 15.1 11.7 - 15.7 g/dL 01/19/2024 9:57 PM CDT [facility] Hematocrit 45.0 35.0 - 47.0 % 01/19/2024 9:57 PM CDT [facility] MCV 91 78 - 100 fL 01/19/2024 9:57 PM CDT [facility] MCH 30.4 26.5 - 33.0 pg 01/19/2024 9:57 PM CDT [facility] MCHC 33.6 31.5 - 36.5 g/dL 01/19/2024 9:57 PM CDT [facility] RDW 12.3 10.0 - 15.0 % 01/19/2024 9:57 PM CDT [facility] Platelet Count 215 150 - 450 10e3/uL 01/19/2024 9:57 PM CDT [facility] % Neutrophils 57 % 01/19/2024 9:57 PM CDT [facility] % Lymphocytes 31 % 01/19/2024 9:57 PM CDT [facility] % Monocytes 7 % 01/19/2024 9:57 PM CDT [facility] % Eosinophils 4 % 01/19/2024 9:57 PM CDT [facility] % Basophils 1 % 01/19/2024 9:57 PM CDT [facility] % Immature Granulocytes 0 % 01/19/2024 9:57 PM CDT [facility] NRBCs per 100 WBC 0 <1 /100 024 9:57 PM CDT [facility] Absolute Neutrophils 6.6 1.6 - 8.3 10e3/uL 01/19/2024 9:57 PM CDT [facility] Absolute Lymphocytes 3.6 0.8 - 5.3 10e3/uL 01/19/2024 9:57 PM CDT [facility] Absolute Monocytes 0.8 0.0 - 1.3 10e3/uL 01/19/2024 9:57 PM CDT [facility] Absolute Eosinophils 0.4 0.0 - 0.7 10e3/uL 01/19/2024 9:57 PM CDT [facility] Absolute Basophils 0.1 0.0 - 0.2 10e3/uL 01/19/2024 9:57 PM CDT [facility] Absolute Immature Granulocytes 0.0 <=0.4 10e3/uL 01/19/2024 9:57 PM CDT [facility] Absolute NRBCs 0.0 10e3/uL 01/19/2024 9:57 PM CDT [facility] Blood BLOOD SPECIMEN / Unknown Venipuncture / Unknown 01/19/2024 9:33 PM CDT 01/19/2024 9:54 PM CDT Randy Kwon APRN ATTENDANCE OFFICER LAB - BLOOD ORDER NASRIN [facility] [address] [facility], [address] [place] [address], [facility] * Fibrinogen activity (01/19/2024 9:33 PM CDT) [facility] Fibrinogen Activity 417 170 - 490 mg/dL 01/19/2024 10:18 PM CDT [facility] Blood BLOOD SPECIMEN / Unknown Venipuncture / Unknown 01/19/2024 9:33 PM CDT 01/19/2024 9:54 PM CDT Randy Kwon APRN, CNP LAB - BLOOD ORDER NASRIN [facility] [address] [place] [address], [address] * Partial thromboplastin time (01/19/2024 9:33 PM CDT) aPTT 25 22 - 38 Seconds 01/19/2024 10:18 PM CDT [facility] Blood BLOOD SPECIMEN / Unknown Venipuncture / Unknown 01/19/2024 9:33 PM CDT 01/19/2024 9:54 PM CDT Randy Kwon APRN, CNP LAB - BLOOD ORDER NASRIN [facility] [address] [place] [address], [address] * INR (01/19/2024 9:33 PM CDT) INR 0.87 0.85 - 1.15 01/19/2024 10:17 PM CDT [facility] Blood BLOOD SPECIMEN / Unknown Venipuncture / Unknown 01/19/2024 9:33 PM CDT 01/19/2024 9:54 PM CDT Randy Kwon APRN, CNP LAB - BLOOD ORDER NASRIN [facility] [address] [place] [address], [address] [id number] [place] [address] * Prolactin (01/19/2024 9:33 PM CDT) Prolactin 22 5 - 23 ng/mL 01/19/2024 11:23 PM CDT [facility] Blood BLOOD SPECIMEN / Unknown Venipuncture / Unknown 01/19/2024 9:33 PM CDT 01/19/2024 9:54 PM CDT Randy Kwon APRN, CNP LAB - BLOOD ORDER [place] [facility] [place] [facility] [address] [facility], [address] [place] [address] * Extra Green Top ([place] Heparin) Tube (01/18/2024 5:40 AM CDT) Hold Specimen JIC 01/18/2024 7:32 AM CDT [facility] Blood STRUCTURE OF RIGHT UPPER LIMB / Unknown Venipuncture / Unknown 01/18/2024 5:40 AM CDT 01/18/2024 6:18 AM CDT Parminder Del Angel MD LAB - BLOOD ORDERABL ES Performing Organization Address City/[facility]/ZIP Co de Phone Number [facility] [address] [place] [address], [address] [address], [facility] * Platelet count - Routine (01/18/2024 5:40 AM CDT) Platelet Count 217 150 - 450 10e3/uL 01/18/2024 6:15 AM CDT [facility] Blood STRUCTURE OF RIGHT UPPER LIMB / Unknown Venipuncture / Unknown 01/18/2024 5:40 AM CDT 01/18/2024 6:13 AM CDT Parminder Del Angel MD LAB - BLOOD ORDERABL ES Performing Organization Address City/[facility]/ZIP Co de Phone Number [facility] [address] [place] [address], [address] [address], [facility] documented in this encounter Visit Diagnoses Diagnosis Stroke (H) Unspecified cerebral artery occlusion with cerebral infarction documented in this encounter Administered Medications Inactive Administered Medications - up to 3 most recent administrations Medication Order MAR Action Action Date Dose Rate Site acetaminophen (TYLENOL) tablet 500-1,000 mg 500-1,000 mg, Oral, EVERY 6 HOURS PRN, mild pain, headaches, Starting on Sat01/17/24 at 1319, Maximum acetaminophen dose from all sources = 75 mg/kg/day not to exceed 4 gram $Given 01/17/2024 9:22 PM CDT 1,000 mg aspirin (ASA) tablet 325 mg 325 mg, Oral, DAILY, First dose on 01/18/24 at 0800 $Given 01/19/2024 7:36 AM CDT 325 mg $Given 01/18/2024 8:03 AM CDT 325 mg cetirizine (zyrTEC) solution 10 mg 10 mg, Oral, DAILY, First dose on 01/18/24 at 0800 $Given 01/19/2024 7:37 AM CDT 10 mg $Given 01/18/2024 11:32 AM CDT 10 mg enoxaparin ANTICOAGULANT (LOVENOX) injection 40 mg 40 mg, Subcutaneous, EVERY 24 HOURS, First dose on 01/18/24 at 0800 $Given 01/19/2024 7:36 AM CDT 40 mg $Given 01/18/2024 8:03 AM CDT 40 mg fluticasone-vilanterol (BREO ELLIPTA) 200-25 MCG/ACT inhaler 1 puff 1 puff, Inhalation, DAILY, First dose on [facility] 01/18/24 at 0800, *Do not use more frequently than once daily.* Rinse mouth after use. Check the dose counter on the inhaler to ensure there are doses remaining before administering. $Given 01/19/2024 7:41 AM CDT 1 puff $Given 01/18/2024 11:30 AM CDT 1 puff hydrOXYzine HCl (ATARAX) tablet 25 mg 25 mg, Oral, EVERY 6 HOURS PRN, other, adjuvant pain, Starting on Sat01/17/24 at 1319, Start with 25 mg for the initial dose. If the 25 mg dose is ineffective, increase to the 50 mg dose at the next administration time and maintain further doses at 50 mg. If the 50 mg dose is ineffective, contact the provider. hydrOXYzine HCl (ATARAX) tablet 50 mg 50 mg, Oral, EVERY 6 HOURS PRN, other, adjuvant pain, Starting on Sat01/17/24 at 1319, Start with 25 mg for the initial dose. If the 25 mg dose is ineffective, increase to the 50 mg dose at the next administration time and maintain further doses at 50 mg. If the 50 mg dose is ineffective, contact the provider. $Given 01/18/2024 9:15 PM CDT 50 mg levETIRAcetam (KEPPRA) tablet 750 mg 750 mg, Oral, 2 TIMES DAILY, First dose on Sat01/17/24 at 2100 $Given 01/19/2024 9:37 PM CDT 750 mg $Given 01/19/2024 7:36 AM CDT 750 mg $Given 01/18/2024 9:15 PM CDT 750 mg magnesium oxide (MAG-OX) tablet 400 mg 400 mg, Oral, AT BEDTIME, First dose on Sat01/17/24 at 2200 $Given 01/18/2024 9:15 PM CDT 400 mg $Given 01/17/2024 9:23 PM CDT 400 mg psyllium (METAMUCIL/KONSYL) Packet 1 packet 1 packet, Oral, DAILY, First dose on Sat01/18/24 at 0800, Powder should be diluted with fluid before given. $Given 01/19/2024 7:37 AM CDT 1 packet $Given 01/18/2024 11:30 AM CDT 1 packet rosuvastatin (CRESTOR) tablet 20 mg 20 mg, Oral, AT BEDTIME, First dose on Sat01/17/24 at 2200 $Given 01/18/2024 9:15 PM CDT 20 mg $Given 01/17/2024 9:23 PM CDT 20 mg traZODone (DESYREL) tablet 100 mg 100 mg, Oral, AT BEDTIME, First dose on Sat01/17/24 at 2200 $Given 01/18/2024 9:15 PM CDT 100 mg $Given 01/17/2024 9:23 PM CDT 100 mg documented in this encounter Active and Recently Administered Medications Times are shown in CDT. Scheduled Medication Order 01/17/2024 01/18/2024 01/19/2024 aspirin (ASA) tablet 325 mg 325 mg, Oral, DAILY, First dose on Sat01/18/24 at 0800 0803 ($Given - Provider: Angei Tripp RN) 0736 ($Given - Provider: Angie Tripp RN) cetirizine (zyrTEC) solution 10 mg 10 mg, Oral, DAILY, First dose on Sat01/18/24 at 0800 1132 ($Given - Provider: Angie Tripp RN) 0737 ($Given - Provider: Angie Tripp RN) enoxaparin ANTICOAGULANT (LOVENOX) injection 40 mg 40 mg, Subcutaneous, EVERY 24 HOURS, First dose on Sat01/18/24 at 0800 0803 ($Given - Provider: Angie Tripp RN) 0736 ($Given - Provider: Angie Tripp RN) fluticasone-vilanterol (BREO ELLIPTA) 200-25 MCG/ACT inhaler 1 puff 1 puff, Inhalation, DAILY, First dose on Sat01/18/24 at 0800, *Do not use more frequently than once daily.* Rinse mouth after use. Check the dose counter on the inhaler to ensure there are doses remaining before administering. 1130 ($Given - Provider: Angie Tripp RN) 0741 ($Given - Provider: Angie Tripp RN) levETIRAcetam (KEPPRA) tablet 750 mg 750 mg, Oral, 2 TIMES DAILY, First dose on Sat01/17/24 at 2100 2123 ($Given - Provider: Per Ma RN) 08 ($Given - Provider: Angie Tripp RN)2114 ($Given - Provider: Escobar David, GEMA) 0736 ($Given - Provider: Angie Tripp RN)0900 (Canceled Entry - Provider: Angie Tripp RN - Comment: given early nper pt request)2136 ($Given - Provider: Escobar David, GEMA) magnesium oxide (MAG-OX) tablet 400 mg 400 mg, Oral, AT BEDTIME, First dose on Sat01/17/24 at 2200 3 ($Given - Provider: Per Ma, GEMA) 2114 ($Given - Provider: Escobar David, GEMA) 2199 (Canceled Entry - Provider: Orders Generic Provider - Comment: Automatically canceled at discontinue of medication order) psyllium (METAMUCIL/KONSYL) Packet 1 packet 1 packet, Oral, DAILY, First dose on Sat01/18/24 at 0800, Powder should be diluted with fluid before given. 1130 ($Given - Provider: Angie Tripp RN) 0737 ($Given - Provider: Angie Tripp RN) rosuvastatin (CRESTOR) tablet 20 mg 20 mg, Oral, AT BEDTIME, First dose on Sat01/17/24 at 2200 2122 ($Given - Provider: Per Ma RN) 2114 ($Given - Provider: Escobar David RN) 2199 (Canceled Entry - Provider: Orders Generic Provider - Comment: Automatically canceled at discontinue of medication order) traZODone (DESYREL) tablet 100 mg 100 mg, Oral, AT BEDTIME, First dose on Sat01/17/24 at 2200 2122 ($Given - Provider: Per Ma RN) 2114 ($Given - Provider: Escobar David RN) 2199 (Canceled Entry - Provider: Orders Generic Provider - Comment: Automatically canceled at discontinue of medication order) PRN Medication Order 01/17/2024 01/18/2024 01/19/2024 acetaminophen (TYLENOL) tablet 500-1,000 mg 500-1,000 mg, Oral, EVERY 6 HOURS PRN, mild pain, headaches, Starting on Sat01/17/24 at 1319, Maximum acetaminophen dose from all sources = 75 mg/kg/day not to exceed 4 gram 2121 ($Given - Provider: Per Ma RN) albuterol (PROVENTIL HFA/VENTOLIN HFA) inhaler 1-2 puff, Inhalation, EVERY 6 HOURS PRN, shortness of breath, Starting on Sat01/17/24 at 1319, Check the dose counter on the inhaler to ensure there are doses remaining before administering. Prime by spraying into the air 4 times prior to first use and if not used within 2 weeks. calcium carbonate (TUMS) chewable tablet 500 mg 500 mg, Oral, 3 TIMES DAILY PRN, heartburn, Starting on Sat01/17/24 at 1319 hydrOXYzine HCl (ATARAX) tablet 25 mg(Linked Group 1) 25 mg, Oral, EVERY 6 HOURS PRN, other, adjuvant pain, Starting on Sat01/17/24 at 1319, Start with 25 mg for the initial dose. If the 25 mg dose is ineffective, increase to the 50 mg dose at the next administration time and maintain further doses at 50 mg. If the 50 mg dose is ineffective, contact the provider. 2114 (See Alternative - Provider: Escobar David RN) hydrOXYzine HCl (ATARAX) tablet 50 mg(Linked Group 1) 50 mg, Oral, EVERY 6 HOURS PRN, other, adjuvant pain, Starting on Sat01/17/24 at 1319, Start with 25 mg for the initial dose. If the 25 mg dose is ineffective, increase to the 50 mg dose at the next administration time and maintain further doses at 50 mg. If the 50 mg dose is ineffective, contact the provider. 2114 ($Given - Provider: Escobar David RN) LORazepam (ATIVAN) tablet 1 mg 1 mg, Oral, EVERY 4 HOURS PRN, seizures, Starting on Sat01/17/24 at 1319 ondansetron (ZOFRAN ODT) ODT tab 4 mg 4 mg, Oral, EVERY 6 HOURS PRN, nausea, vomiting, Starting on Sat01/17/24 at 1319, With dry hands, peel back foil backing and gently remove tablet. Do not push oral disintegrating tablet through foil backing. Administer immediately on tongue and oral disintegrating tablet dissolves in seconds, then swallow with saliva. Liquid not required. Patient is already receiving anticoagulation with heparin, enoxaparin (LOVENOX), warfarin (COUMADIN) or other anticoagulant medication CONTINUOUS PRN, Starting on Sat01/17/24 at 1319, Until 01/19/24 at 2316 Linked Groups Order Group 1: hydrOXYzine HCl (ATARAX) tablet 25 mgJump to med 25 mg, Oral, EVERY 6 HOURS PRN, other, adjuvant pain, Starting on Sat01/17/24 at 1319, Start with 25 mg for the initial dose. If the 25 mg dose is ineffective, increase to the 50 mg dose at the next administration time and maintain further doses at 50 mg. If the 50 mg dose is ineffective, contact the provider. Or hydrOXYzine HCl (ATARAX) tablet 50 mgJump to med 50 mg, Oral, EVERY 6 HOURS PRN, other, adjuvant pain, Starting on Sat01/17/24 at 1319, Start with 25 mg for the initial dose. If the 25 mg dose is ineffective, increase to the 50 mg dose at the next administration time and maintain further doses at 50 mg. If the 50 mg dose is ineffective, contact the provider. documented in this encounter Additional Health Concerns Assessment Noted Time PHQ-9 Depression Total Score: 0 06/23/20 21 4:11 PM CDT documented as of this encounter Care Teams Associate Dentist Relationship Specialty Start Date End Date Yung Madrigal MD RETIRED PCP - Orthopaedics Orthopedics 08/26/12 01/20/24 Winston Villatoro OD [facility] [place] [address] [facility] [address] [place] [address] PCP - Ophthalmology Ophthalmology 02/11/13 Denise Woodson Ra, APRN ATTENDANCE OFFICER [id number] [address] [id number] PCP - General Family Practice 09/21/20 Denise Woodson Ra, APRN ATTENDANCE OFFICER [address] [address] [id number] Assigned PCP 07/17/20 documented as of this encounter
--- OUTSIDE RECORDS SUMMARY | 2024-01-21 14:21 | XMS_ITS | Encounter Summary ---
Author Name Unknown Organization [facility] Address [address] [place] [address]. [place] [address] Care Team Providers Care Marine Superintendent Name Role Phone Yung Madrigal MD Unavailable Unavailable Winston Villatoro OD Unavailable [phone] Denise Woodson Ra, APRN RIB BENDER Unavailable + [phone] Denise Woodson Ra, APRN RIB BENDER Primary Care Provid er Reason for Visit * Reason Comments Medication Refill Encounter Details Date Type Department Care Team (Late st Contact Info) Description 06/11/[address] [place] [address] Denise Woodson Ra, APRN RIB BENDER [address] [place] [address] Medication Refill Social History Tobacco [...] AM CDT Office Visit [facility] [address] [place] [address] Denise Woodson Ra, BARRERA RIB BENDER [id number] [address] [id number] documented as of this encounter Visit Diagnoses Diagnosis Insomnia, unspecified type documented in this encounter Additional Health Concerns Assessment Noted Time PHQ-9 Depression Total Score: 0 01/05/20 21 9:31 AM CDT documented as of this encounter Care Teams Marine Superintendent Relationship Specialty Start Date End Date Yung Madrigal MD RETIRED PCP - Orthopaedics Orthopedics 08/26/12 01/20/24 Winston Villatoro OD [facility] [place] [address] [facility] [address] [place] [address] PCP - Ophthalmology Ophthalmology 02/11/13 Denise Woodson Ra, APRN RIB BENDER [id number] [address] [id number] PCP - General Family Practice 09/21/20 Denise Woodson Ra, APRN RIB [employer]ENDER [id number] [address] [id number] Assigned PCP 07/17/20 documented as of this encounter
--- OUTSIDE RECORDS SUMMARY | 2024-01-21 14:21 | XMS_ITS | Encounter Summary ---
Author Name Unknown Organization [facility] Address [address] [place] [id number] Care Team Providers Care Skip Loader Name Role Phone Yung Madrigal MD Unavailable Unavailable Winston Villatoro OD Unavailable [phone] Denise Woodson Ra, APRN GUEST SERVICE SUPERVISOR Unavailable [phone] Denise Woodson Ra, APRN GUEST SERVICE SUPERVISOR Primary Care Provid er Reason for Referral * Genomics (Routine) - Authorized Specialty Diagnoses / Procedures Referred By Contac t Referred To Contact Procedures Factor 5 leiden mutation analysis Ur [address] [place] [phone] Referral ID Status Reason Start Date Expiration Date V isits Requested Visits Authorized [id number] Authorized 01/21/2024 01/20/2025 1 1 Reason for Visit * Auth/Cert Specialty Diagnoses / Procedures Referred By Contac t Referred To Contact Med Surg Diagnoses seizure-like activity Ur [address] [place] [phone] Referral ID Status Reason Start Date Expiration Date Visits Re quested Visits Authorized [id number] 1 1 Encounter Details Date Type Department Care Team ([facility] st Contact Info) Description 01/19/2024 11:16 PM CDT - Present Hospital Encounter Formerly [facility] Med Surg [address] [place] [phone] Luis Reynolds DO [address] [place] [address] Anahy Jamil MD [address] [place] [address] Social History Tobacco Use Types Packs/Day Years [...] CDT Inhaled Oxygen Concentration - - Weight - - Height - - Body Mass Index - - documented in this encounter Progress Notes * Nisa Haines, BURNER HAND - 01/21/2024 11:31 AM CDT Care Management Follow Up Length of Stay (days): 1 Expected Discharge Date: 01/22/24 Concerns to be Addressed: Discharge planning Patient plan of care discussed at interdisciplinary rounds: Yes Anticipated Discharge Disposition: Acute Rehab Anticipated Discharge Services: None Anticipated Discharge DME: None Patient/family educated on Medicare website which has current facility and service quality ratings:No Education Provided on the Discharge Plan: Yes Patient/Family in Agreement with the Plan: Yes Referrals Placed by CM/SW: Internal Clinic Care Coordination Private pay costs discussed: Not applicable Additional Information: Per IDT rounds, patient will be getting an EEG today. If EEG comes back clear, she will be medically stable to discharge today. Reached out to [facility] to update them. Per [facility], Our beds for today are spoken for, but can definitely put her on the radar for tomorrow. Will keep you posted later this afternoon on how our beds are looking for tomorrow. Will await follow up and update patient once I know more. Care management continues to follow. Addendum 1:21 PM: Social work received a call from Janna @ rehab. Janna is wondering if patient needs ARU or if she is safe enough to discharge to home. SW called over to the PT office to discuss with them. Left a voicemail. [facility] a call back. [facility] [address] [place] [address] P: [phone] F: [phone] [place], [facility] [address] [facility] Pager: [phone] * Airam Jay MD - 01/21/2024 6:[address] [facility] Progress Note - [facility] Date of Admission: 01/19/2024 Major Plans Today: - EEG - Continue PT/OT - Hypercoagulability workup - Follow up Neuro recs - SW working on ARU placement - Complete work form - Discontinue daily labs Assessment & Plan Alcon Zamora is a 48-year-old female PMH Lizy-Danlos syndrome, MONAE, MDD, asthma, fibromyalgia, history of ASD (repaired), and recent cerebral angiogram (01/08) complicated by multifocal stroke (01/12) and witness seizure admitted 01/19/24 for seizure-like activity. # Seizure-like activity # S/P tonic clonic seizure, witnessed (01/13) Witnessed seizure 01/13 [facility]. Initiated on Keppra. Suspected acute related to recent stroke. Admittedfor episodes of seizure-like activity at ARU, see HPI for description. Resolved at this time. Per Neuro, unclear etiology. Suspect related to recent stroke and anticipate to be self-limiting. Unlikely to be true seizures, but EEG evaluation warranted. MRI 01/19 otherwise without recurrent stroke. Consults: - Neurology consulted; appreciate recommendations Management: - EEG today - If recurrent and unremarkable EEG, may need to transfer to for vEEG - Seizure precautions - Continue DRUM SANDER SETTER Keppra 750 mg BID - If recurrent seizure: IV Ativan 2mg for seizure >30 seconds. Additional IV Ativan 2 mg if not aborted after 60 seconds. # Recent acute ischemic stroke, bihemispheric 2/ procedural complication # Right-sided weakness and numbness, improving # Headaches, frontal, intermittent # S/P diagnostic catheter cerebral angiogram (01/08) Underwent planned diagnostic catheter cerebral angiogram for left sided pulsatile tinnitus 01/08. Developed right-sided weakness. MRI 01/12 with multifocal stroke. Per Neurology note 01/14, suspect clot formation due to catheter. Plan for hypercoagulability workup given atypical clot formation. Noted that lipid management had less role because etiology was not from plaque. Admitted to acute rehabilitation for intensive therapy. Progressing well in PT/OT. Cleared by [employer]. Consults: - Neurology consulted; appreciate recommendations - PT/OT following; appreciate recommendations Workup: - Complete planned hypercoagulability workup (factor V Leiden, factor II gene mutation, Lupus anticoagulant, Cardiolipin antibody) Management: - Continue ASA 325 mg daily - Goal normotensive BP - Continue Rosuvastatin 20 mg at bedtime; patient will discuss need for ongoing statin with outpatient provider # AV fistula, left sigmoid dural # Pulsatile tinnitus Patient developed pulsatile tinnitus. Cerebral angiogram 01/08 confirmed left sigmoid dural AV fistula. Planned to follow with [facility] Neurology for repair- but would like to transition cares to [facility]. - [facility] Interventional Neuroradiology referral at discharge # DVT prophylaxis Given etiology of recent stroke suspected to be atypical clot formation, patient was initiated on Lovenox for DVT prophylaxis at ARU. Reasonable to continue during admission. - Lovenox daily # Anxiety # Depression # Psychosocial stressors Reports understandable stress given recent events. Denied SI/HI. Coping admirably. 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 - Continue support coordinator support - Work form Chronic/Resolved/Stable: # History of ASD, repaired Per chart, has Amplatz septal occluder device in place. # Insomnia - DRUM SANDER SETTER Atarax 50 mg at bedtime - DRUM SANDER SETTER Trazodone 100 mg at bedtime # Asthma - DRUM SANDER SETTER Breo Ellipta qday # Constipation - DRUM SANDER SETTER Magnesium oxide 400 mg at bedtime - PRN Miralax/Senna Diet: Combination Diet Regular Diet Adult DVT Prophylaxis: Enoxaparin (Lovenox) SQ Pantoja Catheter: Not present Fluids: PO fluids Lines: None Cardiac Monitoring: None Code Status: Full Code Diet: Combination Diet Regular Diet Adult DVT Prophylaxis: Enoxaparin (Lovenox) SQ Pantoja Catheter: Not present Fluids: PO Lines: None Cardiac Monitoring: None Code Status: Full Code Clinically Significant Risk Factors # Obesity: Estimated body mass index is 31.78 kg/m?? as calculated from the following: Height as of 01/17/24: 1.746 m (5' 8.74). Weight as of 01/17/24: 96.9 kg (213 lb 9.6 oz)., PRESENT ON ADMISSION # Financial/Environmental Concerns: other (see comments) (Expressed financial concerns due to not qualifying for FMLA due to not being at her job long enough.) # Asthma: noted on problem list Disposition Plan Expected Discharge Date: 01/21/2024, 9:00 AM Discharge Comments: Anticipate med ready 01/20, once neuro sees her and plan in place. Can she returnto ARU? The patient's care was discussed with the Attending Physician, Dr. Jamil . Airam Jay MD [facility] Securely message with trinket (more info) Text page via [facility] Paging/Directory See signed in provider for up to date coverage information Interval History Overnight: No acute events. Subjective: Was able to sleep some. Had a headache this morning- has been intermittent, improves with Tylenol. No further episodes of seizure-like activity since yesterday. Able to eat without difficulty. Did not work with PT/OT yesterday- feels down about this, does not want to lose progress in the rapy. Physical Exam Vital Signs: Temp: 97.6 ??F (36.4 ??C) Temp src: Oral BP: 99/47 Pulse: 60 Resp: 16 SpO2: 95 % O2 Device: None (Room air) Weight: 0 lbs 0 oz General: Alert, well-appearing, no acute distress Pulm: Clear to auscultation bilaterally CV: RRR, no murmur Abd: soft, NTND, no masses Ext: Warm, well perfused, 2+ BL radial pulses, no LE edema Skin: No rash on limited skin exam Neurologic: A&O x3. CN II-XII intact. Symmetric 5/5 strength for construction grip strength and hip extension. Psych: Mood appropriate to visit content, full affect, rational thought content and process Medical Decision Making Please see A&P for additional details of medical decision making. Data PAST 24 HR DATA REVIEWED I have personally reviewed the following data over the past 24 hrs: N/A \ N/A / N/A N/A N/A N/A / N/A N/A N/A N/A \ Imaging results reviewed over the past 24 hrs: Recent Results (from the past 24 hour(s)) MRA Brain ([place] [facility] [place]) wo Contrast Narrative EXAM MRA BRAIN ([place] [facility] [place]) W/O CONTRAST 01/20/2024 6:50 PM HISTORY: Multifocal CVA 01/12 with seizure like activity 01/18; Neuro rec'd repeat MRI to rule out recurrent CVA COMPARISON: No images. Outside CTA report for 01/09/2024 obtained through Care Everywhere. TECHNIQUE: Using a 3D [id number] image acquisition technique, MRA of the major [...] paranasal sinus, orbital, and/or skull base structures. Impression IMPRESSION: No intracranial arterial aneurysm or stenosis. I have personally reviewed the examination and initial interpretation and I agree with the findings. ANA LATHAM MD MR Brain w/o & w Contrast Narrative EXAM: MR BRAIN W/O & W CONTRAST [...] on sagittal images. The orbits are normal. Impression IMPRESSION: No acute infarct. Scattered subcortical foci of T2 hyperintensity and enhancement in the left frontal and parietal lobes are likely due to the reported subacute infarcts. I have personally reviewed the examination and initial interpretation and I agree with the findings. ANA LATHAM MD MRA Neck ([place]) wo & w Contrast Narrative EXAM: MRA NECK ([place]) W/O & W [...] V2 segments of the right vertebral artery. Impression IMPRESSION: Neck MRA demonstrates patent major cervical [...] agree with the findings. ANA LATHAM MD * Chrissy Hunter RN - 01/20/2024 7:03 PM CDT Full assessment not done as pt has been at MRI, left at approximately 1730. A&O x4, went through MRI checklist, pt remarked her signature was looking better. Mild R sided weakness. A&O x4, continent B&B. To get EEG in morning as they were not able to complete it tonight. L PIV SL. Temp: 98.6 ??F (37 ??C) Temp src: Oral BP: 138/80 Pulse: 91 Resp: 16 SpO2: 97 % O2 Device: None (Room air) * Airam Jay MD - 01/20/2024 7:[address] [facility] Progress Note - [facility] Date of Admission: 01/19/2024 Major Plans Today: - Neurology consult - Continue PT/OT - Health Psychology not available; seen by - Discuss Lovenox with PharmD given AV fistula Assessment & Plan Alcon Zamora is a 48-year-old female PMH Lizy-Danlos syndrome, MONAE, MDD, asthma, fibromyalgia, history of ASD (repaired), and recent cerebral angiogram (01/08) complicated by multifocal stroke (01/12) and witness grand-mal seizure admitted 01/19/24 for seizure-like activity. # Seizure-like activity # S/P grand mal seizure, witnessed (01/13) Patient with witnessed grand mal seizure 01/13 at [facility]. Aborted with benzodiazepine and initiated on Keppra. Suspected related to recent stroke. Initial plan for short-term anti-epileptics and outpatient follow-up. Admitted for three episodes of seizure-like activity at rehabilitation facility. Descri bed as self-limiting RLE twitching with teeth grinding and rapid eye movement lasting 30-45 seconds. Patient retains consciousness during these episodes. Currently HDS. No acute deficits on neurologic exam. Labs and CT Head unremarkable. May represent focal seizure. Description not consistent with tonic clonic seizure given that she is aware without post-ictal period. Per PharmD, Keppra level notuseful in guiding dosage. Appreciate Neurology input. Consults: - Neurology consulted; appreciate recommendations Management: - Seizure precautions - Continue DRUM SANDER SETTER Keppra 750 mg BID - If recurrent seizure: IV Ativan 2mg for seizure >30 seconds. Additional IV Ativan 2 mg if not aborted after 60 seconds. # Recent acute ischemic stroke, bihemispheric 2/2 procedural complication # Right-sided weakness and numbness, improving # Headaches, frontal, intermittent # S/P diagnostic catheter cerebral angiogram (01/08) Underwent planned diagnostic catheter cerebral angiogram for left sided pulsatile tinnitus 01/08. Developed vomiting and right arm weakness post- procedurally. CT Head negative. Suspected related to contrast allergy. Symptoms persisted, prompting outpatient MRI 01/12 that demonstrated multifocal stroke. Per Neurology note 01/14, suspect clot formation due to catheter. Plan for hypercoagulability workup given atypical clot formation. Noted that lipid management had less role because etiology was not from plaque. Admitted to acute rehabilitation for intensive therapy. Progressing well in PT/OT. Cleared by [employer]ACE[employer] SAL[employer]. Continues to have right-sided weakness with complex, weight-bearing movements; as well as reported short-term memory delay. Consults: - Neurology consulted; appreciate recommendations - PT/OT following; appreciate recommendations Workup: - Pending Neurology recommendations; likely complete planned hypercoagulability workup (factor V Leiden, factor II gene mutation, Lupus anticoagulant, Cardiolipin antibody) Management: - Continue ASA 325 mg daily - Goal normotensive BP - Continue Rosuvastatin 20 mg at bedtime; less role for lipid management given etiology not plaque # AV fistula, left sigmoid dural # Pulsatile tinnitus Patient developed pulsatile tinnitus. Cerebral angiogram 01/08 confirmed left sigmoid dural AV fistula. Planned to follow with [facility] for repair- but would like to transition cares to [facility]. - Neurology consulted; appreciate recommendations - Confirm Lovenox for DVT ppx with PharmD # Anxiety # Depression # Psychosocial stressors Reports understandable stress given recent events. Denied SI/HI. Coping admirably. 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 - Continue support coordinator support Chronic/Stable # History of ASD, repaired Per chart, has Amplatz septal occluder device in place. # Insomnia - DRUM SANDER SETTER Atarax 50 mg at bedtime - DRUM SANDER SETTER Trazodone 100 mg at bedtime # Asthma - DRUM SANDER SETTER Breo Ellipta qday # Constipation - DRUM SANDER SETTER Magnesium oxide 400 mg at bedtime - PRN Miralax/Senna Diet: Combination Diet Regular Diet Adult DVT Prophylaxis: Enoxaparin (Lovenox) SQ Pantoja Catheter: Not present Fluids: PO fluids Lines: None Cardiac Monitoring: None Code Status: Full Code Diet: Combination Diet Regular Diet Adult DVT Prophylaxis: Enoxaparin (Lovenox) SQ Pantoja Catheter: Not present Fluids: PO Lines: None Cardiac Monitoring: None Code Status: Full Code Clinically Significant Risk Factors Present on Admission # Obesity: Estimated body mass index is 31.78 kg/m?? as calculated from the following: Height as of 01/17/24: 1.746 m (5' 8.74). Weight as of 01/17/24: 96.9 kg (213 lb 9.6 oz). # Asthma: noted on problem list Disposition Plan Expected Discharge Date: 01/21/2024, 9:00 AM Discharge Comments: Anticipate med ready 01/20, once neuro sees her and plan in place. Can she returnto ARU? The patient's care was discussed with the Attending Physician, Dr. Jamil . Airam Jay MD [facility] Securely message with [employer] info) Text page via [facility] Paging/Directory See signed in provider for up to date coverage information Interval History Overnight: Admitted. No acute events. Subjective: Endorses headache behind left eye- has been having headaches intermittently. Otherwise feeling well currently. Denies vomiting, CP, SOB. No acute weakness. Right side feels a little weak still after CVA. Recalls that she had a cerebral angiogram 01/08. Immediately post procedure had vomiting and right arm disorientation. Was told it could be a reaction to IV contrast. Symptoms persistent. MRI 01/12 with multifocal stroke. She had a witnessed grand mal seizure 01/12 treated with IV Ativan. She was at a rehab unit and improving. Last night, she noticed worsening headache in PM. At approximately 2200, she had worsening headache followed by twitching of her RLE followed by rapid eye movement. She had three of these episodes prior to being admitted. Since admission, she has had one more episode of leg twitching and eye movement. She was aware during all of these episodes and could feelsternal rub. She endorses understandable emotions regarding recent events. She feels anger that diagnosis was delayed. She feels worried about prognosis. 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 She is open to Health Psych consult. Physical Exam Vital Signs: Temp: 97.6 ??F (36.4 ??C) Temp src: Oral BP: 127/70 Resp: 18 SpO2: 97 % O2 Device: None (Room air) Weight: 0 lbs 0 oz General: Alert, well-appearing, no acute distress Pulm: Clear to auscultation bilaterally CV: RRR, no murmur Abd: soft, NTND, no masses Ext: Warm, well perfused, 2+ BL radial pulses, no LE edema Skin: No rash on limited skin exam Neurologic: A&O x3. CN II-XII intact. Symmetric 5/5 strength for construction grip strength and hip extension. Psych: Mood appropriate to visit content, full affect, rational thought content and process Medical Decision Making Please see A&P for additional details of medical decision making. Data PAST 24 HR DATA REVIEWED I have personally reviewed the following data over the past 24 hrs: 8.3 \ 14.0 / 202 138 105 15.4 / 88 4.2 26 0.68 \ Trop: <6 BNP: N/A Procal: N/A CRP: N/A Lactic Acid: 1.1 INR: 0.87 PTT: 25 D-dimer: N/A Fibrinogen: 417 Imaging results reviewed over the past 24 hrs: Recent Results (from the past 24 hour(s)) CT Head w/o Contrast Narrative EXAM: CT HEAD W/O CONTRAST 01/19/2024 10:34 PM HISTORY: concern for seizure in setting of left sigmoid dural AV fistula and recent ischemic stroke COMPARISON: None available TECHNIQUE: Using multidetector thin collimation helical acquisition technique, axial, coronal and sagittal CT images from the skull base to the vertex were obtained without intravenous contrast. Band Director (topogram) image(s) also obtained and reviewed. FINDINGS: [...] air cells are clear. Grossly normal orbits. Impression IMPRESSION: No acute intracranial pathology. I have personally reviewed the examination and initial interpretation and I agree with the findings. ANA LATHAM MD Associated attestation - Anahy Jamil MD - 01/20/2024 7:58 PM CDT Physician Attestation I saw this patient with the resident and agree with the resident/fellow's findings and plan of careas documented in the note. Please see A&P for additional details of medical decision making. Medical complexity over the past 24 hours: - Prescription DRUG MANAGEMENT performed - Treatment limited by SOCIAL DETERMINANTS OF HEALTH I have personally reviewed the following data over the past 24 hrs: 8.3 \ 14.0 / 202 138 105 15.4 / 88 4.2 26 0.68 \ Trop: <6 BNP: N/A Procal: N/A CRP: N/A Lactic Acid: 1.1 INR: 0.87 PTT: 25 D-dimer: N/A Fibrinogen: 417 Anahy Jamil MD Date of Service (when I saw the patient): 01/20/24 documented in this encounter H&P Notes * Kun Call MD - 01/20/2024 12:[address] [facility] History and Physical - [facility] Date of Admission: 01/19/2024 Assessment & Plan Alcon Zamora is a 48 year old female with past medical history of Lizy-Danlos syndrome, asthma, anxiety and depression, fibromyalgia presents after she was found to have multiple acute ischemic infarcts associated right sided weakness and numbness, likely embolic in nature secondary to procedurecomplication, now complicated by post-stroke seizures. # Seizure like activity at acute hospital Initial post-stroke seizures noted 01/13 at [facility] and was given Keppra load with IV ativan to abort seizure. [place] [facility] recommended starting Keppra 750 BID and follow up outpatient. She was admitted on 01/17/2024 to [facility] for acute inpatient rehabilitation. Rapid response called overnight as the patient became non-verbal with rapid eye movement, and repetitive grinding of teeth that was self limiting. Each episode lasting ~ 30- 45 seconds and were self limiting. Low concern for grand mal seizure as patient localized to sternal rub and responded with that hurts during the episode described. Labs including CBC,BMP, Prolactin, INR, PTT and fibrinogen unremarkable.CT head pending. Plan for Neurology consults for further evaluation for post-stroke seizures. - Neurology consult, appreciate recs - DRUM SANDER SETTER Keppra 750 mg BID - If seizure >30 seconds give one dose of IV Ativan 2 mg. Give additional IV Ativan 2 mg if seizure is not aborted after 60 seconds - Seizure precaution # Cerebral infarct of the frontal lobes, parietal lobes, left supramarginal gyrus, embolic in nature, likely procedural complication # Right sided numbness, weakness # Headaches, frontal Patient was seen by [facility] interventional neuroradiology for diagnostic catheter cerebral angiogram for left sided pulsatile tinnitus. 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, parietal lobes and left supramarginal gyrus, neurology believed embolic in nature, likely procedural complication. PT, OT, PHARMACE[employer] SALES recommended therapies in a acute inpatient rehabilitation setting. Neurology recommended hypercoagulation workup outpatient. Patient reports her right sided weakness and numbness has been improving since being admitted on 01/16. Although, she mentions having an electric shock like sensation to her right chest which last only a few seconds and then goes away. She denies any chest pain or SOB. EKG and trop ordered and was reassuring against ACS. - Secondary stroke ppx: - BP: Goal normotensive. - Cholesterol: Rosuvastatin 20 qhs - Blood glucose: normoglycemic, no hx of DM - AC/AP: ASA 325 mg qday - Pain Regimen: - Tylenol 650 mg q4h - Nausea: zofran PRN - Sleep: Melatonin PRN, Trazodone 100 mg at bedtime - Daily CBC, BMP - PT/OT consult, appreciate recs - Consider hypercoagulation workup per [facility] while inpatient (factor V Leiden, factor IIgene mutation, Lupus anticoagulant, Cardiolipin antibody) Chronic/Stable # Insomnia Patient reports good relief with atarax for anxiety/insomnia in addition to her trazodone. Patient has been tolerating this regimen well during her hospital stay. Due to atarax's interaction leading to enhance GLOBAL CLIMATE CHANGE RESEARCHER depressant effect. Willing to provide atarax once overnight and will reassess in the morning. - Atarax 50 mg once, day team to consider scheduling if needed - Trazodone 100 mg at bedtime # Asthma - DRUM SANDER SETTER Breo Ellipta qday # Bowel: States current regimen helps her stay regular. - Magnesium oxide 400 mg at bedtime - PRN bowel meds available Diet: Combination Diet Regular Diet Adult DVT Prophylaxis: Enoxaparin (Lovenox) SQ [place] Catheter: Not present Fluids: PO fluids Lines: None Cardiac Monitoring: None Code Status: Full Code Clinically Significant Risk Factors Present on Admission # Obesity: Estimated body mass index is 31.78 kg/m?? as calculated from the following: Height as of 01/17/24: 1.746 m (5' 8.74). Weight as of 01/17/24: 96.9 kg (213 lb 9.6 oz). # Asthma: noted on problem list Disposition Plan Expected Discharge Date: 01/22/2024 The patient's care was discussed with the Attending Physician, Dr. Sheth . Kun Call MD [place] [place] Securely message with trinket (more info) Text page via [facility] Paging/Directory See signed in provider for up to date coverage information Chief Complaint Post-stroke seizures History is obtained from the patient History of Present Illness Alcon Zamora is a 48 year old female with past medical history of Lizy-Danlos syndrome, mild persistent asthma, anxiety and depression, fibromyalgia presented for a planned catheter angiogram at [facility] for left sided pulsatile tinnitus on 01/09/24, found to have multiple acute ischemic infarcts of the frontal lobes, parietal lobes and left supramarginal gyrus after procedure with associated right sided weakness and numbness, likely embolic in nature secondary to procedure complication, complicated by post-stroke seizures, admitted on 01/17/2024 at [facility] for acute inpatient rehabilitation complicated by rapid response for seizures. Per CareEverywhere and paper chart review, patient initially went to urgent care on 12/22/23 for evaluation of left ear tinnitus, CTA Head completed and overread by Dr. Gutierrez which showed concerns for asymmetric enlargement of the left occipital artery compared to right, given history of left-sidedpulsatile tinnitus formal diagnostic catheter cerebral angiogram recommended to exclude dural AVF. Patient was seen by [facility] interventional neuroradiology for diagnostic catheter cerebral angiogram [...] V Leiden, factor II gene mutation, Lupus anticoagulant,Cardiolipin antibody, and follow up with neurology in 8 weeks. Patient was evaluated by PT, OT, andSLP who collectively recommended that patient would benefit from ongoing therapies in the acute inpatient rehabilitation setting, and patient was admitted on 01/17/2024. Patient's acute hospital course was complicated by post-stroke seizures noted 4/30 early AM, given Keppra load with IV ativan to abort seizure, neurology recommended continuing Keppra 750 BID and follow up outpatient. Overnight, while in the ARU, patient was witness by staff to be non-verbal, rapid eye movement, andrepetitive grinding of teeth that was self limiting, prompting rapid response. Aggressive sternal rub was applied. Each episode lasting ~ 30-45 seconds and were self limiting. Patient recommended to be admitted to [facility] medicine for neurology consult. During my encounter, patient mentions having an electric shock like sensation to her right chest which last about a few seconds and then goesaway. She also endorses frontal headaches. Otherwise she denies any chest pain, SOB, nausea, vomiting, abdominal pain, lower extremity swelling or tenderness. [employer]EL[employer]UAL [employer]ALE[employer] workup: -Ct head w/o: pending -CMP, CBC plt w/ diff, mg, phos, and prolactin: WNL -EKG: without acute ST changes Past Medical History Past Medical History: Diagnosis Date Acute posthemorrhagic [...] twin sister Stroke (H) 01/17/2024 Uncomplicated asthma Past Surgical History Past Surgical History: Procedure Laterality Date C WASTE WATER OPERATOR PROCEDURE DATE: vag del. C WASTE WATER OPERATOR PROCEDURE DATE: 2000 tubal ligation C WASTE WATER OPERATOR PROCEDURE DATE: 1994 D&C CARDIAC SURGERY 06/2006 heart defect repair ESOPHAGOSCOPY, GASTROSCOPY, DUODENOSCOPY (EGD), COMBINED N/A 02/08/2021 Procedure: ESOPHAGOGASTRODUODENOSCOPY (EGD); Surgeon: Tuan Miller MD; Location: GI GI SURGERY 09/2020 gallbladder removed HC KNEE SCOPE,MED/LAT MENISECTOMY 08/04/13 LT HEART CATH, CLOSURE ATRIAL SEPTAL DEFECT 06/20/06 amplatzer septal occluder- serial #[id number] RW WASTE WATER OPERATOR (ABSTRACTED) pneumonia several times SURGICAL PATHOLOGY EXAM 02/2012 excision of lipoma on chest wall Z VAGINAL HYSTERECTOMY 01/30/06 Prior to Admission Medications Prior to Admission Medications Prescriptions Last Dose Informant Patient Reported? Taking? BREO ELLIPTA 200-25 MCG/INH Inhaler No No Sig: INHALE 1 PUFF INTO THE LUNGS DAILY Chelated Magnesium 100 MG TABS Yes No Sig: Take 100 mg by mouth At Bedtime albuterol (PROAIR HFA/PROVENTIL HFA/VENTOLIN HFA) 108 (90 Base) MCG/ACT inhaler No No Sig: Inhale 2 puffs into the lungs every 4 hours as needed for shortness of breath / dyspnea or wheezing cyclobenzaprine (FLEXERIL) 10 MG tablet No No Sig: Take 1 tablet (10 mg) by mouth 3 times daily as needed for muscle spasms fluticasone (FLONASE) 50 MCG/ACT nasal spray No No Sig: [place] 2 sprays into both nostrils daily traZODone (DESYREL) 50 MG tablet No No Sig: Take 2 tablets (100 mg) by mouth At Bedtime Facility-Administered Medications: None Social History I have reviewed this patient's social history and updated it with pertinent information if needed. Social History Tobacco Use Smoking status: Never Smokeless tobacco: Never Substance Use Topics Alcohol use: Not Currently Comment: minimal Drug use: No Family History I have reviewed this patient's family history and updated it with pertinent information if needed. Family History Problem Relation Age of Onset [...] of Blood Disease No family hx of Allergies Allergies Allergen Reactions Mold Dizziness and GI Disturbance Bupropion GI Disturbance and Other (See Comments) Diarrhea and stomach ache Erythromycin GI Disturbance Physical Exam Vital Signs: Weight: 0 lbs 0 oz GEN: not in any acute distress EYES: PERRL, Anicteric sclera. HEENT: Normocephalic, [...] rashes, sores or ulcerations PSYCH: Affect: appropriate, anxious and frustrated Medical Decision Making Please see A&P for additional details of medical decision making. Data I have personally reviewed the following data over the past 24 hrs: 11.4 (H) \ 15.1 / 215 139 104 16.7 / 99 4.2 24 0.68 \ Trop: <6 BNP: N/A Procal: N/A CRP: N/A Lactic Acid: 1.1 INR: 0.87 PTT: 25 D-dimer: N/A Fibrinogen: 417 Imaging results reviewed over the past 24 hrs: No results found for this or any previous visit (from the past 24 hour(s)). Associated attestation - Anahy Jamil MD - 01/20/2024 7:57 PM CDT Physician Attestation I saw this patient with the resident and agree with the resident/fellow's findings and plan of careas documented in the note. Please see A&P for additional details of medical decision making. Medical complexity over the past 24 hours: - Prescription DRUG MANAGEMENT performed - Treatment limited by SOCIAL DETERMINANTS OF HEALTH I have personally reviewed the following data over the past 24 hrs: 8.3 \ 14.0 / 202 138 105 15.4 / 88 4.2 26 0.68 \ Trop: <6 BNP: N/A Procal: N/A CRP: N/A Lactic Acid: 1.1 INR: 0.87 PTT: 25 D-dimer: N/A Fibrinogen: 417 Anahy Jamil MD Date of Service (when I saw the patient): 01/20/24 documented in this encounter Consult Notes * Nisa Haines, BURNER HAND - 01/20/2024 3:54 PM CDTAssociated Order(s): CARE MANAGEMENT / SOCIAL WORK IP CONSULT Care Management Initial Consult General Information Assessment completed with: Patient Type of CM/SW Visit: Initial Assessment Primary Care Provider verified and updated as needed: Yes Readmission within the last 30 days: other (see comments) ([facility] Reason for Consult: discharge planning Advance Care Planning: other (see comments) (Patient was not interested in completing a HCD at thistime.) Communication Assessment Patient's communication style: spoken language (Turkish or Bilingual) Hearing Difficulty or Deaf: no Wear Glasses or Blind: yes Cognitive Cognitive/Neuro/Behavioral: WDL Living Environment People in home: spouse, child(vipul), adult Current living Arrangements: house Able to return to prior arrangements: yes Family/Social Support Care provided by: self Provides care for: no one, unable/limited ability to care for self Marital Status: Support System: , Children Description of Support System: Supportive, Involved Support Assessment: Adequate family and caregiver support, Adequate social supports Current Resources Patient receiving home care services: No Community Resources: None Equipment currently used at home: none Supplies currently used at home: None Employment/Financial Employment Status: employed full-time Financial Concerns: other (see comments) (Expressed financial concerns due to not qualifying for FMLA due to not being at her job long enough.) Referral to Financial Worker: No Does the patient's insurance plan have a 3 day qualifying hospital stay waiver? No Lifestyle & Psychosocial Needs Social Determinants of Health Food Insecurity: No Food Insecurity (01/10/2023) Received from [facility] Hunger Vital Sign Worried About Running Out of Food in the Last Year: Never true Ran Out of Food in the Last Year: Never true Depression: At risk (01/10/2023) Received from [facility] PHQ-2 PHQ-2 Score: 3 Housing Stability: Low Risk (01/10/2023) Received from [facility] Housing Stability Vital Sign Unable to Pay for Housing in the Last Year: No Number of Places Lived in the Last Year: 1 Unstable Housing in the Last Year: No Tobacco Use: Low Risk (01/17/2024) Patient History Smoking Tobacco Use: Never Smokeless Tobacco Use: Never Passive Exposure: Not on file Financial Resource Strain: Low Risk (01/10/2023) Received from [facility] Overall Financial Resource Strain (CARDIA) Difficulty of Paying Living Expenses: Not hard at all Alcohol Use: Not At Risk (01/10/2023) Received from [facility] AUDIT-C Frequency of Alcohol Consumption: Monthly or less Average Number of Drinks: 1 or 2 Frequency of Binge Drinking: Never Transportation Needs: No Transportation Needs (01/10/2023) Received from [facility] PRAPARE - Transportation Lack of Transportation (Medical): No Lack of Transportation (Non-Medical): No Physical Activity: Sufficiently Active (01/10/2023) Received from [facility] Exercise Vital Sign Days of Exercise per Week: 5 days Minutes of Exercise per Session: 30 min Interpersonal Safety: Not At Risk (01/10/2023) Received from [facility] Humiliation, Afraid, Rape, and Kick questionnaire Fear of Current or Ex-Partner: No Emotionally Abused: No Physically Abused: No Sexually Abused: No Stress: Stress Concern Present (01/10/2023) Received from [facility] [employer] [place] [employer] - Occupational Stress Questionnaire Feeling of Stress : Rather much Social Connections: Socially Isolated (01/10/2023) Received from [facility] Social Connection and Isolation Panel [NHANES] Frequency of Communication with Friends and Family: Once a week Frequency of Social Gatherings with Friends and Family: Once a week Attends Baptism Services: Never Active Member of Clubs or Organizations: No Attends Club or Organization Meetings: Never Marital Status: Health Literacy: Not on file Functional Status Prior to admission patient needed assistance: No Dependent ADLs: Independent Dependent IADLs: Independent Assesssment of Functional Status: Needs placement in a SNF/TCF for rehabilitation Mental Health Status Mental Health Status: Current Concern Mental Health Management: Other (see comment) (Expressed struggles with depression and anxiety. Patient not currently on any medications and does not see a therapist or psychiatrist.) Chemical Dependency Status Chemical Dependency Status: No Current Concerns Values/Beliefs Spiritual, Cultural Beliefs, Baptism Practices, Values that affect care: No Additional Information Alcon Zamora is a 48 year old female with past medical history of Lizy-Danlos syndrome, asthma, anxiety and depression, fibromyalgia presents after she was found to have multiple acute ischemic infarcts associated right sided weakness and numbness, likely embolic in nature secondary to procedurecomplication, now complicated by post-stroke seizures. Social work met with patient at bedside to complete initial assessment. Patient reports she was admitted to [facility] for a week and then transferred to ARU here at [place]. Patient was admitted to ARU on Saturday and then had a seizure and was hospitalized on 5MS last night. SW has already been in contact with [facility] rehab admissions. Per rehabilitation therapist, she just got to [facility]C on Saturday, and left on Saturday. I assume once her seizures are under control, she should be able to come back. We would want PT/OT to still see her over there to make sure she is not losing ground while she is there.Patient states she is eager to get back to ARU. Bedside RN gave patient social works email and I printed paperwork for patient from her employer. There is a Return to Work / Workability Form that will need to be completed by the hospitalist and emailed/faxed back to patients employer which is [employer]. Will ask hospitalist to complete tomorrow. Care management continues to follow. Pending: [facility] [address] [place] [address] P: [phone] F: [phone] [place], [facility] [address] [facility] Pager: [phone] * Christiano Hooper MD - 01/20/2024 2:23 PM CDTAssociated Order(s): NEUROLOGY GENERAL ADULT IP CONSULT CC: spells HPI: Asked to see this 48 year old woman by medicine team for spells. Recent medical events documented in EMR noted. In brief, was recently at [facility] for interventional exploration of pulsatile tinnitus. She developed right arm weakness after procedure and found to have bihemispheric acute ischemicstrokes on MRI after her cerebral angiogram. She was seen by neurology at [place] who provided recommendations for stroke follow up. On 01/16 admitted to ARU. Yesterday developed spells that included headed, right facial paresthesias, twitching of right leg, and eyelid blinking. She was aware of surroundings without LOC. Lasted minutes. She 3 or 4 of these spells. Similar but not identical events occ urred after the stroke was found for which keppra was started. Past Medical History: Diagnosis Date Acute posthemorrhagic [...] twin sister Stroke (H) 01/17/2024 Uncomplicated asthma Current Facility-Administered Medications Medication Dose Route Frequency Provider Last Rate Last Admin acetaminophen (TYLENOL) tablet 650 mg 650 mg Oral Q4H PRN Kun Call MD 650 mg at 01/20/24 1314 Or acetaminophen (TYLENOL) Suppository 650 mg 650 mg Rectal Q4H PRN Kun Call MD albuterol (PROVENTIL HFA/VENTOLIN HFA) inhaler 2 puff Inhalation Q4H PRN Kun Call MD aspirin (ASA) tablet 325 mg 325 mg Oral Daily Kun Call MD 325 mg at 01/20/24 0801 calcium carbonate (TUMS) chewable tablet 1,000 mg 1,000 mg Oral 4x Daily PRN Kun Call MD enoxaparin ANTICOAGULANT (LOVENOX) injection 40 mg 40 mg Subcutaneous Q24H Kun Call MD 40 mg at 01/20/24 0801 fluticasone-vilanterol (BREO ELLIPTA) 200-25 MCG/ACT inhaler 1 puff 1 puff Inhalation Daily Kun Call MD levETIRAcetam (KEPPRA) tablet 750 mg 750 mg Oral BID Kun Call MD 750 mg at 01/20/24 0801 lidocaine (LMX4) cream Topical Q1H PRN Kun Call MD lidocaine 1 % 0.1-1 mL 0.1-1 mL Other Q1H PRN Kun Call MD LORazepam (ATIVAN) injection 2-4 mg 2-4 mg Intravenous Once PRN Kun Call MD magnesium oxide (MAG-OX) half-tab 200 mg 200 mg Oral At Bedtime Kun Call MD 200 mg at 01/20/24 0103 melatonin tablet 5 mg 5 mg Oral At Bedtime PRN Kun Call MD ondansetron (ZOFRAN ODT) ODT tab 4 mg 4 mg Oral Q6H PRN Kun Call MD Or ondansetron (ZOFRAN) injection 4 mg 4 mg Intravenous Q6H PRN Kun Call MD prochlorperazine (COMPAZINE) injection 10 mg 10 mg Intravenous Q6H PRN Kun Call MD Or prochlorperazine (COMPAZINE) tablet 10 mg 10 mg Oral Q6H PRN Kun Call MD Or prochlorperazine (COMPAZINE) suppository 25 mg 25 mg Rectal Q12H PRN Kun Call MD rosuvastatin (CRESTOR) tablet 20 mg 20 mg Oral At Bedtime Kun Call MD 20 mg at 01/20/24 0116 senna-docusate (SENOKOT-S/PERICOLACE) 8.6-50 MG per tablet 1 tablet 1 tablet Oral BID PRN Kun Call MD Or senna-docusate (SENOKOT-S/PERICOLACE) 8.6-50 MG per tablet 2 tablet 2 tablet Oral BID PRN Kun Call MD sodium chloride (PF) 0.9% PF flush 3 mL 3 mL Intracatheter Q8H Kun Call MD 3 mL at 801 sodium chloride (PF) 0.9% PF flush 3 mL 3 mL Intracatheter q1 min prn Kun Call MD traZODone (DESYREL) tablet 100 mg 100 mg Oral At Bedtime Kun Call MD 100 mg at 01/20/24 0103 BP 127/70 (BP Location: Left arm, Patient Position: Semi-Gerardo's) Temp 97.6 ??F (36.4 ??C) (Oral) Resp 18 LMP 01/07/2006 SpO2 97% She is A and O x 3. Language intact. JUAN. EOMi. Face symmetric. Moves limbs symmetric. No drift.Power full. Tone normal. DTR symmetric. Localizes sensation in upper and lower limbs. Angiogram 01/08 showed left sigmoid dural arteriovenous fistula with arterial supply from left middle meningeal, left ascending pharyngeal and left occipital artery branches, and with anterograde venous drainage to the left sigmoid sinus. Assessment: Acute stroke detected about 1 week following cerebral angiogram Ongoing spells post stroke, unlikely seizure Dural AVF Recommendation: Obtain MRI brain stroke protocol to exclude recurrent stroke. Based upon symptoms and examination anew stroke is unlikely, but if present then will need to involve our stroke team Obtain 1 hour EEG to look for epileptic focus, although my suspicion for seizure is low. Ok to continue keppra. If spells continue but EEG shows no seizures will need transfer [place] vEEG monitoring (to capture spell on vEEG) Agree with management of stroke as documented by [facility] neurology team. Please see their notes for details. She will need outpatient neurology follow up for stroke care and keppra management. Pending clinical course and EEG may be able to tapered off as an outpatient. She requests interventional interventional radiology follow up at [facility] (rather than [facility]) for further evaluation and management of AVF. Referral to interventional neuroradiology as outpatient is reasonable. * Radha Sheets - 01/20/2024 12:38 PM CDTAssociated Order(s): PSYCHOLOGY ADULT IP CONSULT Psychology consult closed; psychiatry consult will be completed for this pt. * Genet Batres - 01/20/2024 10:00 AM CDTAssociated Order(s): SPIRITUAL HEALTH SERVICES IP CONSULT SPIRITUAL HEALTH SERVICES - Consult Note 5B Referral Source/Reason for Visit: Routine consult for emotional support with Alcon. Summary and Recommendations - Alcon reflected on her difficult past week; of the unexpected stroke she experienced, multiple seizures afterwards including one out of left field last night, and feeling abandoned by her care team initially after suffering the stroke. She voiced her anger towards feeling unheard, though reports feeling more respected and considered within this hospital. I validated this anger as appropriate and healthy. I recommended she look intocontacting a Patient Satisfaction line for the institution in which she experienced these hardships. Alcon is feeling more positive today, I'm a fix it person. She is looking forward to meeting withNeurology today, and appreciated her RN last night who helped reframe this move to Med/Surg as a helpful opportunity to pursue a full Neuro work-up. She hopes to return to ARU afterwards. Alcon's 2nd granddaughter was born 2 weeks ago, and she looks forward to recovering and returning to her life. She did not report a spiritual/bahai affiliation. Alcon shared that she finds it helpful to verbally process these events, as she makes sense of themand gives voice to her emotions. Plan: [facility] remains available by consult. Genet Batres M.Div. Wait Staff Pager [phone] Reachable via trinket SHS available 08/04 for emergent requests/referrals, either by paging the on-call support coordinator or by entering an FIFI/STAT consult in [facility], which will also page the on-call support coordinator. Assessment Saw pt Alcon A Noah per routine consult for emotional support. Patient/Family Understanding of Illness and Goals of Care - Alcon is hopeful to meet with Neuro today and learn more about the cause of her stroke and subsequent seizures. She is grateful that her bed was reserved in ARU for when she is ready to move back there. Distress and Loss - Alcon expressed feelings of anger and abandonment with the hospital that she was initially working with, as it took 4-days before she was admitted after her stroke. She shared that she had a panic attack last night when she thought she was being transferred away from [place].She reports some financial stressors, and her is back to work in [place] today. Strengths, Coping, and Resources - Alcon described herself as very resilient, which I affirmed. Diana affirmed her strong advocacy voice as she navigated her hospital admission and exercised her self-insight that something wasn't right. Her , daughters, and two granddaughters are primary supports, as well as her aunt, who works as a Neuro RN on the at [facility]. She shared that she is a fix it person, and is feeling better after getting dressed this morning and getting out of bed. Meaning, Beliefs, and Spirituality - Alcon did not identify a spiritual/bahai background. She reports that verbally processing was very helpful for her. [facility] remains available for continued support via consult. documented in this encounter Miscellaneous Notes * Plan of Care - Stephanie Tobias RN - 01/21/2024 12:30 AM CDT Pt is alert and oriented x4. Able to make needs known. Denies pain, cp or SOB. SBA. Pt had MRI 01/19 evening, see results. Pt to have EEG done 01/20, pt is aware, oncoming RN updated. Pt did not have anyseizure activity this shift. Seizure precautions maintained. Continent of bowel and bladder. Requested for PRN senna at bedtime, pt reported she wants to stay ahead of constipation. LBM 01/20/24 per pt. Pt requested to have atarax as well, reported it helps calm/relax her to sleep, provider ordered it for daily at bedtime. Call light is in reach, continue to monitor. Pt c/o headache this morning rating pain 3/10, received PRN tylenol. * Pharmacy-Admission Medication History - Speedy Flores RPH - 01/20/2024 4:30 PM CDT Pharmacist Admission Medication History Admission medication history is complete. The information provided in this note is only as accurateas the sources available at the time of the update. Information Source(s): Facility ([facility]/) medication list/MAR via N/A Pertinent Information: Completed using MAR from [facility]. Changes made to [employer] medication list: Added: ASA 325mg daily Cetirizine 10mg daily Keppra 750mg BID MgOxide 200mg at bedtime Psyllium - 1 packet daily Rosuvastatin 20mg at bedtime Deleted: Cyclobenzaprine Flonase Changed: None Allergies reviewed with patient and updates made in EHR: no Medication History Completed By: Speedy Flores RPH 01/20/2024 4:30 PM [facility] [facility] Med List Medication Sig Last Dose albuterol (PROAIR HFA/PROVENTIL HFA/VENTOLIN HFA) 108 (90 Base) MCG/ACT inhaler Inhale 2 puffs intothe lungs every 4 hours as needed for shortness of breath / dyspnea or wheezing Unknown aspirin (ASA) 325 MG EC tablet Take 325 mg by mouth daily 01/20/2024 BREO ELLIPTA 200-25 MCG/INH Inhaler INHALE 1 PUFF INTO THE LUNGS DAILY 01/20/2024 cetirizine (ZYRTEC) 10 MG tablet Take 10 mg by mouth daily 01/20/2024 levETIRAcetam (KEPPRA) 750 MG tablet Take 750 mg by mouth 2 times daily 01/20/2024 magnesium oxide 200 MG TABS Take 200 mg by mouth at bedtime 01/19/2024 psyllium (METAMUCIL) 28.3 % packet Take 1 packet by mouth daily 01/20/2024 rosuvastatin (CRESTOR) 20 MG tablet Take 20 mg by mouth at bedtime 01/19/2024 traZODone (DESYREL) 50 MG tablet Take 2 tablets (100 mg) by mouth At Bedtime 01/19/2024 * Plan of Care - Airam Jay MD - 01/20/2024 3:32 PM CDT Paged the following: Bethany Zamora [id number] Pt is requesting that language in chart stating she had previously denied MRI be changed as she states she never refused MRI. She verbalizes being upset with charting made. Lilliana RIBEIRO [phone] Provider Addendum: Note was based on review of records from [facility]. Will update to reflect patient report. Airam Jay MD [facility], PGY-2 * Plan of Care - Lilliana Yadav RN - 01/20/2024 2:19 PM CDT End of shift Summary: See flowsheet for VS and detail assessments. Changes this Shift: Pulmonary: WDL GI/: WDL Activity: Up standby assist with walker or independent if she's feeling very stable. Patient had just graduated from assistive devices in ARU and would like to maintain this. Skin: WDL Pain: Mild to moderate headache throughout day. Treated with tylenol. Neuro/CMS: Slight R side deficit. Remains unchanged from prior report. She does have short term memory deficits. Awaiting neuro input. IV: Patent. Additional info: Patient does desire some ability to be independent. She has clear seizure warnings; seizures have been precipitated by severe headache. Patient to call with any symptoms. She has been advised on staff assist buttons in room and various ways to notify staff. She is utilizing a walker. Plan: * Plan of Care - Rocio Tovar RN - 01/20/2024 2:51 AM CDT [id number] Goal Outcome Evaluation: Plan of Care Reviewed With: patient Overall Patient Progress: decliningOverall Patient Progress: declining Outcome Evaluation: Pt had seizure while in ARU Pt admitted to floor from ARU after [employer] was called for seizure-like activity. Pt is Aox4. Up SBA with walker to the bathroom. Denies n/t, n/v, sob. Reports having headache with photosensitivity sincethe seizure. Pain managed with prn tylenol. Reports having issues with short term memory loss sincestroke. Pt has pulsatile tinnitus to left ear since before the stroke occurred. Trazodone and atarax given at bedtime to help with sleep. Tele in place showing NSR. Seizure pads in place. Suction at bedside. No seizure episodes observed this shift. Sleeping between cares. L PIV SL. Continue POC. * Provider Notification - Azra Alfaro RN - 01/19/2024 11:51 PM CDT 01/19/[id number] Call Information Date of Call 01/19/24 Time of Call 2056 Name of person requesting the team bedside RN (Escobar Samson RN) Title of person requesting team RN [employer] Arrival time 2101 Time [employer] ended 2229 Reason for call Type of [employer] Adult Primary reason for call Neurological Neurological Seizure;Other (describe) (concerns for seizure) Was patient transferred from the ED, ICU, or PACU within last 24 hours prior to [employer] call? No SBAR Situation Patient found to have rapid eye movement, increased headache with eye pain, and non verbal during seizure like episode Background HX of seizures and post infarcts Notable History/Conditions Seizures;Neurological Assessment Patient was talking when [employer] nurse arrived to scene. Patient a/o x4. Vitals stable with slight hypertension. Shortly after arrival, patient began to have rapid eye movement and patient wasunable to verbalize during episode. Interventions Labs;Other (describe) (IV placed and CT ordered) Adjustments to Recommend Transfer to medical unit for tele and IMC status. Patient Outcome Patient Outcome Transferred to (transferred to [facility] for tele and IMC) [employer] Team Attending/Primary/Covering Physician Randy Kwon, [place] Date Attending Physician notified 01/19/24 Time Attending Physician notified 2056 Physician(s) Chacho Kwon and hospitalist. Lead RN Escobar Samson RN RN Azra RN and Matt RIBEIRO RT na Other staff NST Post [employer] Intervention Assessment Post [employer] Assessment Stable/Improved (and transferred to IMC) documented in this encounter Plan of Treatment Upcoming Encounters Date Type Department Care Team (Late st Contact Info) Description 03/23/2024 10:30 AM CDT Office Visit [facility] [address] [place] [address] Denise Woodson Ra, FINAL [employer]SEMBLER [employer]PERVISOR [address] [place] [address] Pending Results Name Type Priority Associated Diagnoses Date /Time EEG Video 2-12 HRS Ummonitored EEG Routine 01/21/2024 12:15 PM CDT Factor 5 leiden mutation analysis Molecular Lab Add-On 01/21/2024 5:5 1 AM CDT Factor 2 assay Lab Routine 01/21/2024 1:20 PM CDT Lupus Anticoagulant Panel Lab Routine 01/21/2024 1:20 PM CDT Cardiolipin Desire IgG and IgM Lab Add-On 01/21/2024 5:51 AM CDT Scheduled Orders Name Type Priority Associated Diagnoses Order Schedule EEG Video 2-12 HRS Ummonitored EEG Routine One time imaging for 1 Occurrences starting 01/21/2024 until 01/21/2024 Factor 5 leiden mutation analysis Molecular Lab Add-On Routine for 1 Occurrences starting 01/21/2024 until 01/21/2024 Factor 2 assay Lab Routine Routine fo r 1 Occurrences starting 01/21/2024 until 01/21/2024 Lupus Anticoagulant Panel Lab Routine Routine for 1 Occurrences starting 01/21/2024 until 01/21/2024 Cardiolipin Desire IgG and IgM Lab Add-On Routine for 1 Occurrences starting 01/21/2024 until 01/21/2024 documented as of this encounter Procedures The patient is currently admitted. The information in this section might not be complete until the patient is discharged. Procedure Name Priority Date/Time Associated Diagnosis Comments CBC WITH PLATELETS AND DIFFERENTIAL Routine 01/21/2024 5:51 AM CDT CBC WITH PLATELETS & DIFFERENTIAL Routine 01/21/2024 5:51 AM CDT BASIC METABOLIC PANEL Routine 01/21/2024 5:51 AM CDT MRA NECK (CAROTIDS) W/O & W CONTRAST STAT 01/20/2024 6:54 PM CDT MR BRAIN W/O & W CONTRAST STAT 01/20/2024 6:53 PM CDT MRA BRAIN ([place]) W/O CONTRAST STAT 01/20/2024 6:50 PM CDT CBC WITH PLATELETS AND DIFFERENTIAL Routine 01/20/2024 6:29 AM CDT CBC WITH PLATELETS & DIFFERENTIAL Routine 01/20/2024 6:29 AM CDT BASIC METABOLIC PANEL Routine 01/20/2024 6:29 AM CDT TROPONIN T, HIGH SENSITIVITY STAT 01/19/2024 11:55 PM CDT LACTIC ACID WHOLE BLOOD STAT 01/19/2024 11:55 PM CDT BASIC METABOLIC PANEL STAT 01/19/2024 11:55 PM CDT EXTRA TUBE Routine 01/19/2024 11:54 PM CDT EXTRA PURPLE TOP TUBE Routine 01/19/2024 11:54 PM CDT documented in this encounter Results * CBC with platelets and differential (01/21/2024 5:51 AM CDT) [facility] WBC Count 8.6 4.0 - 11.0 10e3/uL [...] LAB - BLOOD ORDERABL ES UR LABORATORY [facility] [address] [place] [address] * Basic metabolic panel (01/21/2024 5:51 AM CDT) [facility] Sodium 139 135 - 145 mmol/L 01/21/2024 [...] LAB - BLOOD ORDERABL ES UR LABORATORY [facility] [address], [address] [place] [address] * MRA Neck (Carotids) wo & w [...] Airam Jay MD IM MRI ORDERABLES * MR Brain w/o & [...] findings. ANA LATHAM MD Airam Jay MD [facility] MRI ORDERABLES * MRA Brain ([place]) wo Contrast (01/20/2024 6:50 PM CDT) Anatomical Region Laterality Modality Head, SUBRAD MR NEURO, UMP MR NEURO, RAD MR Magnetic Resonance Impressions 01/20/2024 7:49 PM CDT IMPRESSION: No intracranial arterial aneurysm or stenosis. I have personally reviewed the examination and initial interpretation and I agree with the findings. 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 Outside CTA report for 01/09/2024 obtained through Care Everywhere. 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 Outside CTA report for 01/09/2024 obtained through Care Everywhere. TECHNIQUE: Using a 3D [id number] image acquisition technique, MRA of the major [...] findings. ANA LATHAM MD Airam Jay MD IMG MRI ORDERABLES * CBC with platelets and differential (01/20/2024 6:29 AM CDT) WBC Count 8.3 4.0 - 11.0 10e3/uL 01/20/2024 7:04 AM CDT UR LABORATORY RBC Count 4.61 3.80 - 5.20 10e6/uL 01/20/2024 7:04 AM CDT UR LABORATORY Hemoglobin 14.0 11.7 - 15.7 g/dL 01/20/2024 7:04 AM CDT UR LABORATORY Hematocrit 41.6 35.0 - 47.0 % 01/20/2024 7:04 AM CDT UR LABORATORY MCV 90 78 - 100 fL 01/20/2024 7:04 AM CDT UR LABORATORY MCH 30.4 26.5 - 33.0 pg 01/20/2024 7:04 AM CDT UR LABORATORY MCHC 33.7 31.5 - 36.5 g/dL 01/20/2024 7:04 AM CDT UR LABORATORY RDW 12.1 10.0 - 15.0 % 01/20/2024 7:04 AM CDT UR LABORATORY Platelet Count 202 150 - 450 10e3/uL 01/20/2024 7:04 AM CDT UR LABORATORY % Neutrophils 57 % 01/20/2024 7:04 AM CDT UR LABORATORY % Lymphocytes 30 % 01/20/2024 7:04 AM CDT UR LABORATORY % Monocytes 7 % 01/20/2024 7:04 AM CDT UR LABORATORY % Eosinophils 4 % 01/20/2024 7:04 AM CDT UR LABORATORY % Basophils 1 % 01/20/2024 7:04 AM CDT UR LABORATORY % Immature Granulocytes 1 % 01/20/2024 7:04 AM CDT UR LABORATORY NRBCs per 100 WBC 0 <1 /100 024 7:04 AM CDT UR LABORATORY Absolute Neutrophils 4.8 1.6 - 8.3 10e3/uL 01/20/2024 7:04 AM CDT UR LABORATORY Absolute Lymphocytes 2.5 0.8 - 5.3 10e3/uL 01/20/2024 7:04 AM CDT UR LABORATORY Absolute Monocytes 0.6 0.0 - 1.3 10e3/uL 01/20/2024 7:04 AM CDT UR LABORATORY Absolute Eosinophils 0.3 0.0 - 0.7 10e3/uL 01/20/2024 7:04 AM CDT UR LABORATORY Absolute Basophils 0.1 0.0 - 0.2 10e3/uL 01/20/2024 7:04 AM CDT UR LABORATORY Absolute Immature Granulocytes 0.0 <=0.4 10e3/uL 01/20/2024 7:04 AM CDT UR LABORATORY Absolute NRBCs 0.0 10e3/uL 01/20/2024 7:04 AM CDT UR LABORATORY Blood STRUCTURE OF RIGHT HAND / Unknown Venipuncture / Unknown 01/20/2024 6:29 AM CDT 01/20/2024 6:55 AM CDT Kun Call MD LAB - BLOOD ORDERABL ES UR LABORATORY [facility] [address] [place] [address] * Basic metabolic panel (01/20/2024 6:29 AM CDT) Sodium 138 135 - 145 mmol/L 01/20/2024 7:26 AM CDT UR LABORATORY Comment:Reference intervals for this test were updated on 06/11/2023 to more accurately reflect our healthy population. There may be differences in the flagging of prior results with similar values performed with this method. Interpretation of those prior results can be made in the context of the updated reference intervals. Potassium 4.2 3.4 - 5.3 mmol/L 01/20/2024 7:26 AM CDT UR LABORATORY Chloride 105 98 - 107 mmol/L 01/20/2024 7:26 AM CDT UR LABORATORY Carbon Dioxide (CO2) 26 22 - 29 mmol/L 01/20/2024 7:26 AM CDT UR LABORATORY Anion Gap 7 7 - 15 mmol/L 01/20/2024 7:26 AM CDT UR LABORATORY Urea Nitrogen 15.4 6.0 - 20.0 mg/dL 01/20/2024 7:26 AM CDT UR LABORATORY Creatinine 0.68 0.51 - 0.95 mg/dL 01/20/2024 7:26 AM CDT UR LABORATORY GFR Estimate >90 >60 mL/min/1. 73m2 01/20/2024 7:26 AM CDT UR LABORATORY Calcium 8.7 8.6 - 10.0 mg/dL 01/20/2024 7:26 AM CDT UR LABORATORY Glucose 88 70 - 99 mg/dL 01/20/2024 7:26 AM CDT UR LABORATORY Blood STRUCTURE OF RIGHT HAND / Unknown Venipuncture / Unknown 01/20/2024 6:29 AM CDT 01/20/2024 6:55 AM CDT Kun Call MD LAB - BLOOD ORDERABL ES Performing Organization Address City/[facility]/ZIP Co de Phone Number UR LABORATORY [facility] [address] [place] [address], [address] * Lactic acid whole blood (01/19/2024 11:55 PM CDT) Lactic Acid 1.1 0.7 - 2.0 mmol/L 01/20/2024 12:03 AM CDT UR LABORATORY Blood STRUCTURE OF RIGHT UPPER LIMB / Unknown Venipuncture / Unknown 01/19/2024 11:55 PM CDT 01/20/2024 12:01 AM CDT Len Camejo DO LAB - BLOOD ORDERABLES UR LABORATORY [facility] [address] [place] [address], [address] * Basic metabolic panel (01/19/2024 11:55 PM CDT) Sodium 139 135 - 145 mmol/L 01/20/2024 12:29 AM CDT UR LABORATORY Comment:Reference intervals for this test were updated on 06/11/2023 to more accurately reflect our healthy population. There may be differences in the flagging of prior results with similar values performed with this method. Interpretation of those prior results can be made in the context of the updated reference intervals. Potassium 4.2 3.4 - 5.3 mmol/L 01/20/2024 12:29 AM CDT UR LABORATORY Chloride 104 98 - 107 mmol/L 01/20/2024 12:29 AM CDT UR LABORATORY Carbon Dioxide (CO2) 24 22 - 29 mmol/L 01/20/2024 12:29 AM CDT UR LABORATORY Anion Gap 11 7 - 15 mmol/L 01/20/2024 12:29 AM CDT UR LABORATORY Urea Nitrogen 16.7 6.0 - 20.0 mg/dL 01/20/2024 12:29 AM CDT UR LABORATORY Creatinine 0.68 0.51 - 0.95 mg/dL 01/20/2024 12:29 AM CDT UR LABORATORY GFR Estimate >90 >60 mL/min/1. 73m2 01/20/2024 12:29 AM CDT UR LABORATORY Calcium 9.1 8.6 - 10.0 mg/dL 01/20/2024 12:29 AM CDT UR LABORATORY Glucose 99 70 - 99 mg/dL 01/20/2024 12:29 AM CDT UR LABORATORY Blood STRUCTURE OF RIGHT UPPER LIMB / Unknown Venipuncture / Unknown 01/19/2024 11:55 PM CDT 01/20/2024 12:01 AM CDT Len Camejo DO LAB - BLOOD ORDERABLES UR LABORATORY [facility] [address] [place] [address] * Troponin T, High Sensitivity (01/19/2024 11:55 [...] DO LAB - BLOOD ORDERABLES UR LABORATORY [facility] [address] [place] [address], [address] [phone] * Extra Purple Top Tube (01/19/2024 11:54 PM CDT) Hold Specimen [facility] 01/20/2024 1:04 AM CDT UR LABORATORY Blood BLOOD SPECIMEN / Unknown Venipuncture / Unknown 01/19/2024 11:54 PM CDT 01/20/2024 12:03 AM CDT Luis Reynolds DO LAB - BLOOD ORDERABL ES UR LABORATORY [facility] [address] [place] [address], [address] [address] documented in this encounter Visit Diagnoses Diagnosis Seizure-like activity (H)- Primary Other convulsions History of seizure History of stroke Transient ischemic attack (TIA), and cerebral infarction without residual deficits documented in this encounter Administered Medications Active Administered Medications - up to 3 most recent administrations Medication Order MAR Action Action Date Dose Rate Site acetaminophen (TYLENOL) Suppository 650 mg 650 mg, Rectal, EVERY 4 HOURS PRN, mild pain, other, and adjunct with moderate or severe pain or per patient request, Starting on 01/20/24 at 0021, Alternate with ibuprofen if ordered. Maximum acetaminophen dose from all sources = 75 mg/kg/day not to exceed 4 grams/day. acetaminophen (TYLENOL) tablet 650 mg 650 mg, Oral, EVERY 4 HOURS PRN, mild pain, other, and adjunct with moderate or severe pain or per patient request, Starting on Sat01/20/24 at 0021, Alternate with ibuprofen if ordered. Maximum acetaminophen dose from all sources = 75 mg/kg/day not to exceed 4 grams/day. $Given 01/21/2024 6:14 AM CDT 650 mg $Given 01/20/2024 7:20 PM CDT 650 mg $Given 01/20/2024 1:14 PM CDT 650 mg aspirin (ASA) tablet 325 mg 325 mg, Oral, DAILY, First dose on Sat01/20/24 at 0800 $Given 01/21/2024 8:17 AM CDT 325 mg $Given 01/20/2024 8:01 AM CDT 325 mg calcium carbonate (TUMS) chewable tablet 1,000 mg 1,000 mg, Oral, 4 TIMES DAILY PRN, heartburn, Starting on Sat01/20/24 at 0011 fluticasone-vilanterol (BREO ELLIPTA) 200-25 MCG/ACT inhaler 1 puff 1 puff, Inhalation, DAILY, First dose on Sat01/20/24 at 0800, *Do not use more frequently than once daily.* Rinse mouth after use. Check the dose counter on the inhaler to ensure there are doses remaining before administering. hydrOXYzine HCl (ATARAX) tablet 50 mg 50 mg, Oral, AT BEDTIME, First dose on Sat01/20/24 at 2200 $Given 01/20/2024 9:02 PM CDT 50 mg levETIRAcetam (KEPPRA) tablet 750 mg 750 mg, Oral, 2 TIMES DAILY, First dose on Sat01/20/24 at 0800 $Given 01/21/2024 8:17 AM CDT 750 mg $Given 01/20/2024 8:06 PM CDT 750 mg $Given 01/20/2024 8:01 AM CDT 750 mg lidocaine (LMX4) cream Topical, EVERY 1 HOUR PRN, pain, with VAD insertion, Starting on Sat01/20/24 at 0011, Apply at least 30 minutes prior to VAD insertion in divided doses as needed for size of site for insertion. MAX Dose: 2.5 g (?? of 5 g tube) Do NOT give if patient has a history of allergy to any local anesthetic or any desirae product. Do NOT use both lidocaine intradermal/subcutaneous injection and the lidocaine cream on the same site. lidocaine 1 % 0.1-1 mL 0.1-1 mL, Other, EVERY 1 HOUR PRN, mild pain with VAD insertion, Starting on Sat01/20/24 at 0011, MAX dose 1 mL subcutaneous OR intradermal along the side of the vein in divided doses as needed for VAD insertion. Do NOT give if patient has a history of allergy to any local anesthetic or any desirae product. Do NOT use both lidocaine intradermal/subcutaneous injection and the lidocaine cream on the same site. LORazepam (ATIVAN) injection 2-4 mg 2-4 mg, Intravenous, ONCE PRN, seizures, Starting on Sat01/20/24 at 0212, For 1 dose, Give initial dose of IV Ativan 2 mg if seizing for >30 sec. Can give additional dose on IV ativan 2 mg if seizing not aborted after 60 seconds. IV Route: Dilute with equal volume NS prior to use. This drug may cause significant respiratory depression. Monitor respiratory status and vital signs carefully for 1 hour after each dose. magnesium oxide (MAG-OX) half-tab 200 mg 200 mg, Oral, AT BEDTIME, First dose on Sat01/20/24 at 0100, 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 $Given 01/20/2024 9:02 PM CDT 200 mg $Given 01/20/2024 1:03 AM CDT 200 mg melatonin tablet 5 mg 5 mg, Oral, AT BEDTIME PRN, sleep, Starting on Sat01/20/24 at 0020, Do not give unless at least 6 hours of uninterrupted sleep is expected. If patient has multiple medications ordered PRN sleep/insomnia, offer melatonin first. ondansetron (ZOFRAN ODT) ODT tab 4 mg 4 mg, Oral, EVERY 6 HOURS PRN, nausea, vomiting, Starting on Sat01/20/24 at 0021, This is Step 1 of nausea and vomiting management. If nausea not resolved in 15 minutes, go to Step 2 prochlorperazine (COMPAZINE). With dry hands, peel back foil backing and gently remove tablet. Do not push oral disintegrating tablet through foil backing. Administer immediately on tongue and oral disintegrating tablet dissolves in seconds, then swallow with saliva. Liquid not required. ondansetron (ZOFRAN) injection 4 mg 4 mg, Intravenous, EVERY 6 HOURS PRN, nausea, vomiting, Administer over 2-5 Minutes, Starting on Sat01/20/24 at 0021, Give IF patient unable to tolerate oral medication. This is Step 1 of nausea and vomiting management. If nausea not resolved in 15 minutes, go to Step 2 prochlorperazine (COMPAZINE). Irritant. prochlorperazine (COMPAZINE) injection 10 mg 10 mg, Intravenous, EVERY 6 HOURS PRN, nausea, vomiting, Administer over 1-2 Minutes, Starting on Sat01/20/24 at 0021, IF patient unable to tolerate oral medication. This is Step 2 of nausea and vomiting management. Give if nausea not resolved 15 minutes after giving ondansetron (ZOFRAN). prochlorperazine (COMPAZINE) suppository 25 mg 25 mg, Rectal, EVERY 12 HOURS PRN, nausea, vomiting, Starting on Sat01/20/24 at 0021, This is Step 2 of nausea and vomiting management. Give if nausea not resolved 15 minutes after giving ondansetron (ZOFRAN). prochlorperazine (COMPAZINE) tablet 10 mg 10 mg, Oral, EVERY 6 HOURS PRN, vomiting, Starting on Sat01/20/24 at 0021, This is Step 2 of nausea and vomiting management. Give if nausea not resolved 15 minutes after giving ondansetron (ZOFRAN). rosuvastatin (CRESTOR) tablet 20 mg 20 mg, Oral, AT BEDTIME, First dose on Sat01/20/24 at 0130 $Given 01/20/2024 9:02 PM CDT 20 mg $Given 01/20/2024 1:16 AM CDT 20 mg senna-docusate (SENOKOT-S/PERICOLACE) 8.6-50 MG per tablet 1 tablet 1 tablet, Oral, 2 TIMES DAILY PRN, constipation, Starting on Sat01/20/24 at 0011, If no bowel movement in 24 hours, increase to 2 tablets by mouth. IF more than 1 constipation PRN medication is ordered, administer step-roldan as indicated, moving to the next step ONLY if prior step ineffective. Step 1: senna-docusate (SENOKOT-S; PERICOLACE) OR bisacodyl (DULCOLAX) EC tablet Step 2: polyethylene glycol (MIRALAX/GLYCOLAX) Step 3: bisacodyl (DULCOLAX) suppository Step 4: enema Hold for loose stools. $Given 01/20/2024 9:02 PM CDT 1 table t senna-docusate (SENOKOT-S/PERICOLACE) 8.6-50 MG per tablet 2 tablet 2 tablet, Oral, 2 TIMES DAILY PRN, constipation, Starting on Sat01/20/24 at 0011, IF more than 1 constipation PRN medication is ordered, administer step-roldan as indicated, moving to the next step ONLY if prior step ineffective. Step 1: senna-docusate (SENOKOT-S; PERICOLACE) OR bisacodyl (DULCOLAX) EC tablet Step 2: polyethylene glycol (MIRALAX/GLYCOLAX) Step 3: bisacodyl (DULCOLAX) suppository Step 4: enema Hold for loose stools. sodium chloride (PF) 0.9% PF flush 3 mL 3 mL, Intracatheter, EVERY 8 HOURS, First dose on Sat01/20/24 at 0030, to lock peripheral IV dormant line $Given 01/21/2024 8:17 AM CDT 3 mLs $Given 01/20/2024 8:01 AM CDT 3 mLs $Given 01/20/2024 1:05 AM CDT 3 mLs sodium chloride (PF) 0.9% PF flush 3 mL 3 mL, Intracatheter, EVERY 1 MIN PRN, line flush, other, to ensure patency or to lock dormant line, Starting on Sat01/20/24 at 0011 $Given 01/20/2024 9:04 PM CDT 3 mLs traZODone (DESYREL) tablet 100 mg 100 mg, Oral, AT BEDTIME, First dose on Sat01/20/24 at 0100 $Given 01/20/2024 9:02 PM CDT 100 mg $Given 01/20/2024 1:03 AM CDT 100 mg Inactive Administered Medications - up to 3 most recent administrations Medication Order MAR Action Action Date Dose Rate Site enoxaparin ANTICOAGULANT (LOVENOX) injection 40 mg 40 mg, Subcutaneous, EVERY 24 HOURS, First dose on Sat01/20/24 at 0800 $Given 01/20/2024 8:01 AM CDT 40 mg gadobutrol (GADAVIST) injection 9.6 mL 9.6 mL, Intravenous, ONCE, On Sat01/20/24 at 1830, For 1 dose, Supplied by, and administered by MRI. $Given 01/20/2024 6:20 PM CDT 9.6 mLs hydrOXYzine HCl (ATARAX) tablet 50 mg 50 mg, Oral, ONCE, On Sat01/20/24 at 0100, For 1 dose $Given 01/20/2024 1:03 AM CDT 50 mg documented in this encounter Active and Recently Administered Medications Times are shown in CDT. Scheduled Medication Order 01/19/2024 01/20/2024 01/21/2024 aspirin (ASA) tablet 325 mg 325 mg, Oral, DAILY, First dose on Sat01/20/24 at 0800 0801 ($Given - Provider: Lilliana Yadav RN) 0817 ($Given - Provider: Lilliana Yadav, RN) enoxaparin ANTICOAGULANT (LOVENOX) injection 40 mg (CANCELED) 40 mg, Subcutaneous, EVERY 24 HOURS, First dose on Sat01/20/24 at 0800 0801 ($Given - Provider: Lilliana Yadav, RN) fluticasone-vilanterol (BREO ELLIPTA) 200-25 MCG/ACT inhaler 1 puff 1 puff, Inhalation, DAILY, First dose on Sat01/20/24 at 0800, *Do not use more frequently than once daily.* Rinse mouth after use. Check the dose counter on the inhaler to ensure there are doses remaining before administering. 0820 (Not Given - Provider: Lilliana Yadav RN - Reason: Medication not available) 0817 (Not Given - Provider: Lilliana Yadav RN - Reason: Medication not available) gadobutrol (GADAVIST) injection 9.6 mL (COMPLETED) 9.6 mL, Intravenous, ONCE, On Sat01/20/24 at 1830, For 1 dose, Supplied by, and administered by MRI. 1820 ($Given - Provider: Angi Bee) hydrOXYzine HCl (ATARAX) tablet 50 mg (COMPLETED) 50 mg, Oral, ONCE, On Sat01/20/24 at 0100, For 1 dose 0103 ($Given - Provider: Rocio Tovar RN) hydrOXYzine HCl (ATARAX) tablet 50 mg 50 mg, Oral, AT BEDTIME, First dose on Sat01/20/24 at 2200 210 ($Given - Provider: Stephanie Tobias RN) 2199 (Due) levETIRAcetam (KEPPRA) tablet 750 mg 750 mg, Oral, 2 TIMES DAILY, First dose on Sat01/20/24 at 0800 0801 ($Given - Provider: Lilliana Yadav RN)2005 ($Given - Provider: Stephanie Tobias RN) 08 ($Given - Provider: Lilliana Yadav RN)1999 (Due) magnesium oxide (MAG-OX) half-tab 200 mg 200 mg, Oral, AT BEDTIME, First dose on Sat01/20/24 at 0100, 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 0103 ($Given - Provider: Rocio Tovar RN)210 ($Given - Provider: Stephanie Tobias RN) 2199 (Due) rosuvastatin (CRESTOR) tablet 20 mg 20 mg, Oral, AT BEDTIME, First dose on Sat01/20/24 at 0130 0116 ($Given - Provider: Rocio Tovar RN)2101 ($Given - Provider: Stephanie Tobias RN) 2199 (Due) sodium chloride (PF) 0.9% PF flush 3 mL 3 mL, Intracatheter, EVERY 8 HOURS, First dose on Sat01/20/24 at 0030, to lock peripheral IV dormant line 0105 ($Given - Provider: Rocio Tovar RN)0801 ($Given - Provider: Lilliana Yadav RN)1902 (Not Given - Provider: Chrissy Hunter RN - Reason: Patient not available) 2 (Not Given - Provider: Stephanie Tobias RN - Reason: Patient sleeping)08 ($Given - Provider: Lilliana Yadav RN)163 (Due) traZODone (DESYREL) tablet 100 mg 100 mg, Oral, AT BEDTIME, First dose on Sat01/20/24 at 0100 0103 ($Given - Provider: Rocio Tovar RN)210 ($Given - Provider: Stephanie Tobias RN) 2200 (Due) PRN Medication Order 01/19/2024 01/20/2024 01/21/2024 acetaminophen (TYLENOL) Suppository 650 mg(Linked Group 1) 650 mg, Rectal, EVERY 4 HOURS PRN, mild pain, other, and adjunct with moderate or severe pain or per patient request, Starting on Sat01/20/24 at 0021, Alternate with ibuprofen if ordered. Maximum acetaminophen dose from all sources = 75 mg/kg/day not to exceed 4 grams/day. 0103 (See Alternative - Provider: Rocio Tovar RN)0809 (See Alternative - Provider: Lilliana Yadav RN)1314 (See Alternative - Provider: Lilliana Yadav RN)1920 (See Alternative - Provider: Chrissy Hunter, GEMA) 0614 (See Alternative - Provider: Stephanie Tobias, GEMA) acetaminophen (TYLENOL) tablet 650 mg(Linked Group 1) 650 mg, Oral, EVERY 4 HOURS PRN, mild pain, other, and adjunct with moderate or severe pain or per patient request, Starting on Sat01/20/24 at 0021, Alternate with ibuprofen if ordered. Maximum acetaminophen dose from all sources = 75 mg/kg/day not to exceed 4 grams/day. 0103 ($Given - Provider: Rocio Tovar RN)0809 ($Given - Provider: Lilliana Yadav RN)1314 ($Given - Provider: Lilliana Yadav RN)1920 ($Given - Provider: Chrissy Hunter, GEMA) 0614 ($Given - Provider: Stephanie Tobias, GEMA) albuterol (PROVENTIL HFA/VENTOLIN HFA) inhaler 2 puff, Inhalation, EVERY 4 HOURS PRN, shortness of breath, wheezing, Starting on Sat01/20/24 at 0030, Check the dose counter on the inhaler to ensure there are doses remaining before administering. Prime by spraying into the air 4 times prior to first use and if not used within 2 weeks. calcium carbonate (TUMS) chewable tablet 1,000 mg 1,000 mg, Oral, 4 TIMES DAILY PRN, heartburn, Starting on Sat01/20/24 at 0011 lidocaine (LMX4) cream Topical, EVERY 1 HOUR PRN, pain, with VAD insertion, Starting on Sat01/20/24 at 0011, Apply at least 30 minutes prior to VAD insertion in divided doses as needed for size of site for insertion. MAX Dose: 2.5 g (?? of 5 g tube) Do NOT give if patient has a history of allergy to any local anesthetic or any desirae product. Do NOT use both lidocaine intradermal/subcutaneous injection and the lidocaine cream on the same site. lidocaine 1 % 0.1-1 mL 0.1-1 mL, Other, EVERY 1 HOUR PRN, mild pain with VAD insertion, Starting on Sat01/20/24 at 0011, MAX dose 1 mL subcutaneous OR intradermal along the side of the vein in divided doses as needed for VAD insertion. Do NOT give if patient has a history of allergy to any local anesthetic or any desirae product. Do NOT use both lidocaine intradermal/subcutaneous injection and the lidocaine cream on the same site. LORazepam (ATIVAN) injection 2-4 mg 2-4 mg, Intravenous, ONCE PRN, seizures, Starting on Sat01/20/24 at 0212, For 1 dose, Give initial dose of IV Ativan 2 mg if seizing for >30 sec. Can give additional dose on IV ativan 2 mg if seizing not aborted after 60 seconds. IV Route: Dilute with equal volume NS prior to use. This drug may cause significant respiratory depression. Monitor respiratory status and vital signs carefully for 1 hour after each dose. melatonin tablet 5 mg 5 mg, Oral, AT BEDTIME PRN, sleep, Starting on Sat01/20/24 at 0020, Do not give unless at least 6 hours of uninterrupted sleep is expected. If patient has multiple medications ordered PRN sleep/insomnia, offer melatonin first. ondansetron (ZOFRAN ODT) ODT tab 4 mg(Linked Group 2) 4 mg, Oral, EVERY 6 HOURS PRN, nausea, vomiting, Starting on Sat01/20/24 at 0021, This is Step 1 of nausea and vomiting management. If nausea not resolved in 15 minutes, go to Step 2 prochlorperazine (COMPAZINE). With dry hands, peel back foil backing and gently remove tablet. Do not push oral disintegrating tablet through foil backing. Administer immediately on tongue and oral disintegrating tablet dissolves in seconds, then swallow with saliva. Liquid not required. ondansetron (ZOFRAN) injection 4 mg(Linked Group 2) 4 mg, Intravenous, EVERY 6 HOURS PRN, nausea, vomiting, Administer over 2-5 Minutes, Starting on Sat01/20/24 at 0021, Give IF patient unable to tolerate oral medication. This is Step 1 of nausea and vomiting management. If nausea not resolved in 15 minutes, go to Step 2 prochlorperazine (COMPAZINE). Irritant. prochlorperazine (COMPAZINE) injection 10 mg(Linked Group 3) 10 mg, Intravenous, EVERY 6 HOURS PRN, nausea, vomiting, Administer over 1-2 Minutes, Starting on Sat01/20/24 at 0021, IF patient unable to tolerate oral medication. This is Step 2 of nausea and vomiting management. Give if nausea not resolved 15 minutes after giving ondansetron (ZOFRAN). prochlorperazine (COMPAZINE) suppository 25 mg(Linked Group 3) 25 mg, Rectal, EVERY 12 HOURS PRN, nausea, vomiting, Starting on Sat01/20/24 at 0021, This is Step 2 of nausea and vomiting management. Give if nausea not resolved 15 minutes after giving ondansetron (ZOFRAN). prochlorperazine (COMPAZINE) tablet 10 mg(Linked Group 3) 10 mg, Oral, EVERY 6 HOURS PRN, vomiting, Starting on Sat01/20/24 at 0021, This is Step 2 of nausea and vomiting management. Give if nausea not resolved 15 minutes after giving ondansetron (ZOFRAN). senna-docusate (SENOKOT-S/PERICOLACE) 8.6-50 MG per tablet 1 tablet(Linked Group 4) 1 tablet, Oral, 2 TIMES DAILY PRN, constipation, Starting on Sat01/20/24 at 0011, If no bowel movement in 24 hours, increase to 2 tablets by mouth. IF more than 1 constipation PRN medication is ordered, administer step-roldan as indicated, moving to the next step ONLY if prior step ineffective. Step 1: senna-docusate (SENOKOT-S; PERICOLACE) OR bisacodyl (DULCOLAX) EC tablet Step 2: polyethylene glycol (MIRALAX/GLYCOLAX) Step 3: bisacodyl (DULCOLAX) suppository Step 4: enema Hold for loose stools. 2101 ($Given - Provider: Stephanie Tobias RN) senna-docusate (SENOKOT-S/PERICOLACE) 8.6-50 MG per tablet 2 tablet(Linked Group 4) 2 tablet, Oral, 2 TIMES DAILY PRN, constipation, Starting on Sat01/20/24 at 0011, IF more than 1 constipation PRN medication is ordered, administer step-roldan as indicated, moving to the next step ONLY if prior step ineffective. Step 1: senna-docusate (SENOKOT-S; PERICOLACE) OR bisacodyl (DULCOLAX) EC tablet Step 2: polyethylene glycol (MIRALAX/GLYCOLAX) Step 3: bisacodyl (DULCOLAX) suppository Step 4: enema Hold for loose stools. 2101 (See Alternative - Provider: Stephanie Tobias RN) sodium chloride (PF) 0.9% PF flush 3 mL 3 mL, Intracatheter, EVERY 1 MIN PRN, line flush, other, to ensure patency or to lock dormant line, Starting on Sat01/20/24 at 0012103 ($Given - Provider: Stephanie Tobias RN) Linked Groups Order Group 1: acetaminophen (TYLENOL) tablet 650 mgJump to med 650 mg, Oral, EVERY 4 HOURS PRN, mild pain, other, and adjunct with moderate or severe pain or per patient request, Starting on Sat01/20/24 at 0021, Alternate with ibuprofen if ordered. Maximum acetaminophen dose from all sources = 75 mg/kg/day not to exceed 4 grams/day. Or acetaminophen (TYLENOL) Suppository 650 mgJump to med 650 mg, Rectal, EVERY 4 HOURS PRN, mild pain, other, and adjunct with moderate or severe pain or per patient request, Starting on Sat01/20/24 at 0021, Alternate with ibuprofen if ordered. Maximum acetaminophen dose from all sources = 75 mg/kg/day not to exceed 4 grams/day. Group 2: ondansetron (ZOFRAN ODT) ODT tab 4 mgJump to med 4 mg, Oral, EVERY 6 HOURS PRN, nausea, vomiting, Starting on Sat01/20/24 at 0021, This is Step 1 of nausea and vomiting management. If nausea not resolved in 15 minutes, go to Step 2 prochlorperazine (COMPAZINE). With dry hands, peel back foil backing and gently remove tablet. Do not push oral disintegrating tablet through foil backing. Administer immediately on tongue and oral disintegrating tablet dissolves in seconds, then swallow with saliva. Liquid not required. Or ondansetron (ZOFRAN) injection 4 mgJump to med 4 mg, Intravenous, EVERY 6 HOURS PRN, nausea, vomiting, Administer over 2-5 Minutes, Starting on Sat01/20/24 at 0021, Give IF patient unable to tolerate oral medication. This is Step 1 of nausea and vomiting management. If nausea not resolved in 15 minutes, go to Step 2 prochlorperazine (COMPAZINE). Irritant. Group 3: prochlorperazine (COMPAZINE) injection 10 mgJump to med 10 mg, Intravenous, EVERY 6 HOURS PRN, nausea, vomiting, Administer over 1-2 Minutes, Starting on Sat01/20/24 at 0021, IF patient unable to tolerate oral medication. This is Step 2 of nausea and vomiting management. Give if nausea not resolved 15 minutes after giving ondansetron (ZOFRAN). Or prochlorperazine (COMPAZINE) tablet 10 mgJump to med 10 mg, Oral, EVERY 6 HOURS PRN, vomiting, Starting on Sat01/20/24 at 0021, This is Step 2 of nausea and vomiting management. Give if nausea not resolved 15 minutes after giving ondansetron (ZOFRAN). Or prochlorperazine (COMPAZINE) suppository 25 mgJump to med 25 mg, Rectal, EVERY 12 HOURS PRN, nausea, vomiting, Starting on Sat01/20/24 at 0021, This is Step 2 of nausea and vomiting management. Give if nausea not resolved 15 minutes after giving ondansetron (ZOFRAN). Group 4: senna-docusate (SENOKOT-S/PERICOLACE) 8.6-50 MG per tablet 1 tabletJump to med 1 tablet, Oral, 2 TIMES DAILY PRN, constipation, Starting on Sat01/20/24 at 0011, If no bowel movement in 24 hours, increase to 2 tablets by mouth. IF more than 1 constipation PRN medication is ordered, administer step-roldan as indicated, moving to the next step ONLY if prior step ineffective. Step 1: senna-docusate (SENOKOT-S; PERICOLACE) OR bisacodyl (DULCOLAX) EC tablet Step 2: polyethylene glycol (MIRALAX/GLYCOLAX) Step 3: bisacodyl (DULCOLAX) suppository Step 4: enema Hold for loose stools. Or senna-docusate (SENOKOT-S/PERICOLACE) 8.6-50 MG per tablet 2 tabletJump to med 2 tablet, Oral, 2 TIMES DAILY PRN, constipation, Starting on Sat01/20/24 at 0011, IF more than 1 constipation PRN medication is ordered, administer step-roldan as indicated, moving to the next step ONLY if prior step ineffective. Step 1: senna-docusate (SENOKOT-S; PERICOLACE) OR bisacodyl (DULCOLAX) EC tablet Step 2: polyethylene glycol (MIRALAX/GLYCOLAX) Step 3: bisacodyl (DULCOLAX) suppository Step 4: enema Hold for loose stools. documented in this encounter Additional Health Concerns Assessment Noted Time PHQ-9 Depression Total Score: 0 06/23/20 21 4:11 PM CDT documented as of this encounter Care Teams Skip Loader Relationship Specialty Start Date End Date Yung Madrigal MD RETIRED PCP - Orthopaedics Orthopedics 08/26/12 01/20/24 Winston Villatoro OD [facility] [place] [address] [facility] [address] [place] [address] PCP - Ophthalmology Ophthalmology 02/11/13 Denise Woodson Ra, BARRERA GUEST SERVICE SUPERVISOR [id number] [place] [id number] PCP - General Family Practice 09/21/20 Denise Woodson Ra, APRN GUEST SERVICE SUPERVISOR [address] [place] [id number] Assigned PCP 07/17/20 documented as of this encounter
--- OUTSIDE RECORDS SUMMARY | 2024-01-21 14:21 | XMS_ITS | Encounter Summary ---
Author Name Unknown Organization [place] Address [address] [place] [address]. [place] [address] Care Team Providers Care Clinical Phlebotomist Name Role Phone Winston Villatoro OD Unavailable [phone] Denise Woodson Ra, APRN EMERGENCY ROOM TECHNICIAN Unavailable [phone] Denise Woodson Ra, APRN EMERGENCY ROOM TECHNICIAN Primary Care Provid er Reason for Visit * Auth/Cert Specialty Diagnoses / Procedures Referred By Nila shah Referred To Contact Med Surg Diagnoses seizure-like activity Ur [address] [place] [id number] Referral ID Status Reason Start Date Expiration Date Visits Re quested Visits Authorized [id number] 1 1 Encounter Details Date Type Department Care Team (Late st Contact Info) Description 01/21/2024 8:30 AM CDT Ancillary Procedure [facility] EEG [address] [place] [phone] Kev Ansari MD [address] [place] [address] [address] [place] [address] Anahy Jamil MD [address] [place] [address] Arrived Social History Tobacco Use Types Packs/Day Years [...] Description 03/23/2024 10:30 AM CDT Office Visit [facility] [place] [address] [address] [place] [phone] Denise Woodson Ra, HIGH SCHOOL VICE PRINCIPAL EMERGENCY ROOM TECHNICIAN [address] [address] [id number] Pending Results Name Type Priority Associated Diagnoses Date /Time EEG Video 2-12 HRS Ummonitored EEG Routine 01/21/2024 12:15 PM CDT documented as of this encounter Visit Diagnoses Not on filedocumented in this encounter Additional Health Concerns Assessment Noted Time PHQ-9 Depression Total Score: 0 06/23/20 21 4:11 PM CDT documented as of this encounter Care Teams Clinical Phlebotomist Relationship Specialty Start Date End Date Winston Villatoro OD [facility] [place] [address] [place] [address] PCP - Ophthalmology Ophthalmology 02/11/13 Denise Woodson Ra, APRN EMERGENCY ROOM TECHNICIAN [id number] [place] [id number] PCP - General Family Practice 09/21/20 Denise Woodson Ra, APRN EMERGENCY ROOM TECHNICIAN [address] [place] [id number] Assigned PCP 07/17/20 documented as of this encounter
--- OUTSIDE RECORDS SUMMARY | 2024-01-21 14:22 | XMS_ITS | Encounter Summary ---
Author Name Unknown Organization [place] Address [address] [place] [address] Care Team Providers Care Greenhouse Florist Name Role Phone Timmy Perez MD Unavailable Unavailable Yung Madrigal MD Unavailable Unavailable Frw, None Primary Care Provider Unavailrigoberto e Winston Villatoro OD Unavailable [phone] Apple Sykes MD Primary Care Provider [phone] Westley Bates MD Unavailable [phone] Alessandra Cabrales APRN CARDIOTHORACIC PHYSIOTHERAPIST Primary Car e Provider Serum, Clara Garland MD Primary Care Provider Serum, Clara Garland MD Unavailable [phone] Serum, Clara Garland MD Unavailable Denise Woodson Ra, APRN CARDIOTHORACIC PHYSIOTHERAPIST Unavailable [phone] Denise Woodson Ra, APRN CARDIOTHORACIC PHYSIOTHERAPIST Primary Care Provid er Reason for Visit * Reason Onset Date Comments Medication Question 04/21/2013 Farhan Saez [facility] Encounter Details Date Type Department Care Team (Late st Contact Info) Description 04/21/2013 Telephone [facility] in [facility] [address] [place] [address] [place] [address] Janna Rodriguez, locomotive engineer Question ([facility]) Social History Tobacco Use Types Packs/Day Years [...] Description 03/23/2024 10:30 AM CDT Office Visit [facility] [address] [place] [address] Denise Woodson Ra, JAVA DEVELOPER CARDIOTHORACIC PHYSIOTHERAPIST [address] [place], [place] [phone] documented as of this encounter Visit Diagnoses Not on filedocumented in this encounter Care Teams Greenhouse Florist Relationship Specialty Start Date End Date Timmy Perez MD PCP - Obstetrics/Gynecology 03/02/08 08/07/15 Yung Madrigal MD RETIRED PCP - Orthopaedics Orthopedics 08/26/12 01/20/24 Frw, None PCP - General Family Practice 08/26/12 05/03/13 Winston Villatoro OD [facility] [place] [address] [place] [address] PCP - Ophthalmology Ophthalmology 02/11/13 Apple Sykes MD [facility] [place] [address] [place] [address] PCP - General Family Practice 05/04/13 10/25/16 Westley Bates MD XXX RETIRED [place] [address] [place] [address] PCP - ENT Otolaryngology 05/14/13 07/28/18 Alessandra Cabrales APRN CARDIOTHORACIC PHYSIOTHERAPIST [address] [facility] [place] [address] PCP - General Nurse Practitioner 10/26/16 02/06/17 Clara Cornell MD [address] [facility] [place] [address] PCP - General Internal Medicine 02/07/17 09/20/20 Clara Cornell MD [address] [place] [address] PCP - Assigned PCP 01/17/17 11/18/18 Denise Woodson Ra, APRN CARDIOTHORACIC PHYSIOTHERAPIST [address] [place] [id number] PCP - General Family Practice 09/21/20 Clara Cornell MD [address] [place] [address] Assigned PCP 01/17/17 07/16/20 Denise Woodson Ra, JAVA DEVELOPER CARDIOTHORACIC PHYSIOTHERAPIST [address] [place] [address] Assigned PCP 07/17/20 documented as of this encounter
--- OUTSIDE RECORDS SUMMARY | 2024-01-21 14:22 | XMS_ITS | Encounter Summary ---
Author Name Unknown Organization [place] Address [address] [place] [address]. [place] [address] Care Team Providers Care Shirt Operator Name Role Phone Yung Madrigal MD Unavailable Unavailable Winston Villatoro OD Unavailable [phone] Serum, Clara Garland MD Primary Care Provider Serum, Clara Garland MD Unavailable [phone] Denise Woodson Ra, APRN CYLINDER DIE MACHINE OPERATOR Unavailable + [phone] Denise Woodson Ra, APRN, CNP Primary Care Provid er Encounter Details Date Type Department Care Team (Late st Contact Info) Description 01/21/2019 MyC Medical Advice [address] [place] [phone] [facility] Social History Tobacco Use Types [...] Description 03/23/2024 10:30 AM CDT Office Visit [facility] [address] [place] [phone] Denise Woodson Ra, APRN CYLINDER DIE MACHINE OPERATOR [address] [address] [place] [id number] documented as of this encounter Visit Diagnoses Not on filedocumented in this encounter Additional Health Concerns Assessment Noted Time PHQ-9 Depression Total Score: 0 02/09/20 17 7:29 AM CDT documented as of this encounter Care Teams Shirt Operator Relationship Specialty Start Date End Date Yung Madrigal MD RETIRED PCP - Orthopaedics Orthopedics 08/26/12 01/20/24 Winston Villatoro OD [facility] [place] [address] [place] [address] PCP - Ophthalmology Ophthalmology 02/11/13 Clara Cornell MD [facility] [place] [address] [place] [address] PCP - General Internal Medicine 02/07/17 09/20/20 Denise Woodson Ra, APRN CYLINDER DIE MACHINE OPERATOR [address] [address] [place] [address] PCP - General Family Practice 09/21/20 Clara Cornell MD [address] [place] [address] Assigned PCP 01/17/17 07/16/20 Denise Woodson Ra, APRN CYLINDER DIE MACHINE OPERATOR [address] [address] [place] [id number] Assigned PCP 07/17/20 documented as of this encounter
--- OUTSIDE RECORDS SUMMARY | 2024-01-21 14:22 | XMS_ITS | Encounter Summary ---
Author Name Unknown Organization [place] Address [address] [place] [address]. [place] [address] Care Team Providers Care Warp Dyeing Tender Name Role Phone Tmimy Perez MD Unavailable Unavailable Encounter Details Date Type Department Care Team (Late st Contact Info) Description 01/17/2012 3:20 PM CDT [facility] [address] [place] [phone] Luis Walsh [address] [place] [address] Interface, MD [place] Social History Tobacco Use [...] Description 03/23/2024 10:30 AM CDT Office Visit [facility] [address] [place] [phone] Denise Woodson Ra, SALES CORRESPONDENT [facility] [address] [place], [place] [phone] documented as of this encounter Visit Diagnoses Not on filedocumented in this encounter Care Teams Warp Dyeing Tender Relationship Specialty Start Date End Date Timmy Perez MD PCP - Obstetrics/Gynecology 03/02/0807/18 documented as of this encounter
--- OUTSIDE RECORDS SUMMARY | 2024-01-21 14:22 | XMS_ITS | Encounter Summary ---
Author Name Unknown Organization [place] Address [address] [place] [address] Care Team Providers Care Loan Documentation Specialist Name Role Phone Timmy Perez MD Unavailable Unavailable Yung Madrigal MD Unavailable Unavailable Winston Villatoro OD Unavailable [phone] Apple Sykes MD Primary Care Provider [phone] Westley Bates MD Unavailable Alessandra Cabrales APRN FLOOR LAYER APPRENTICE Primary Car e Provider Serum, Clara Garland MD Primary Care Provider Serum, Clara Garland MD Unavailable [phone] Serum, Clara Garland MD Unavailable [phone] Denise Woodson Ra, APRN FLOOR LAYER APPRENTICE Unavailable + [phone] Denise Woodson Ra, APRN, CNP Primary Care Provid er Encounter Details Date Type Department Care Team (Late st Contact Info) Description 05/26/2013 MyC Medical Advice [facility] in [place] Orthopedics [address] [place] [phone] Yung Madrigal MD RETIRED Social History Tobacco [...] 10:30 AM CDT Office Visit [facility] [address] [facility] [place] [phone] Denise Woodson Ra, HOSTESS CASHIER FLOOR LAYER APPRENTICE [address] [facility] [place], [place] [phone] documented as of this encounter Visit Diagnoses Not on filedocumented in this encounter Care Teams Loan Documentation Specialist Relationship Specialty Start Date End Date Timmy Perez MD PCP - Obstetrics/Gynecology 03/02/08 08/07/15 Yung Madrigal MD RETIRED PCP - Orthopaedics Orthopedics 08/26/12 01/20/24 Winston Villatoro, OD [facility] [place] [address] [place] [address] PCP - Ophthalmology Ophthalmology 02/11/13 Apple Sykes MD [facility] [place] [address] [place] [address] PCP - General Family Practice 05/04/13 10/25/16 Westley Bates MD XXX RETIRED [place] [address] [place] [address] PCP - ENT Otolaryngology 05/14/13 07/28/18 Alessandra Cabrales APRN FLOOR LAYER APPRENTICE [address] [place] [address] [place] [address] PCP - General Nurse Practitioner 10/26/16 02/06/17 Clara Corenll MD [address] [facility] [place] [address] PCP - General Internal Medicine 02/07/17 09/20/20 Clara Cornell MD [address] [place] [address] PCP - Assigned PCP 01/17/17 11/18/18 Denise Woodson Ra, APRN FLOOR LAYER APPRENTICE [address] [place] [address] PCP - General Family Practice 09/21/20 Clara Cornell MD [address] [place] [address] Assigned PCP 01/17/17 07/16/20 Denise Woodson Ra, APRN FLOOR LAYER APPRENTICE [address] [place] [address] Assigned PCP 07/17/20 documented as of this encounter
--- OUTSIDE RECORDS SUMMARY | 2024-01-21 14:22 | XMS_ITS | Encounter Summary ---
Author Name Unknown Organization [place] Address [address] [place] [address] Care Team Providers Care Racing Board Marker Name Role Phone Yung Madrigal MD Unavailable Unavailable Winston Villatoro OD Unavailable [phone] Serum, Clara Garland MD Primary Care Provider Serum, Clara Garland MD Unavailable [phone] Denise Woodson Ra, APRN INDUSTRIAL REAL ESTATE AGENT Unavailable [phone] Denise Woodson Ra, APRN INDUSTRIAL REAL ESTATE AGENT Primary Care Provid er Reason for Visit * Reason Onset Date Comments LAB REQUEST 06/16/2019 Encounter Details Date Type Department Care Team (Late st Contact Info) Description 06/16/2019 [facility] Medical Advice [address] [place] [address] Serum, Clara Garland MD [address] [place] [address] LAB REQUEST Social History Tobacco [...] RN - 06/16/2019 4:17 PM CDT See YouFastUnlock[employer] message regarding yesterday's appointment. Patient requesting to check TSH and antibodies for pt reported possible yonas's. Pended TSH for provider review. documented in this encounter Plan of Treatment Upcoming Encounters Date Type Department Care Team (Late st Contact Info) Description 03/23/2024 10:30 AM CDT Office Visit [facility] [address] [place] [address] Denise Woodson Ra, FEED HOUSE SUPERVISOR INDUSTRIAL REAL ESTATE AGENT [address] [place] [address] documented as of this encounter Results * Follicle stimulating hormone (06/22/2019 3:36 PM CDT) FSH 9.5 IU/L 06/23/2019 2:32 PM CDT [facility] Comment: FSH Reference Range Female: Follicular ?2.5-10.2 ?Mid-cycle ? 3.4-33.4 ?Luteal ?1.5-9.1 ?Postmenopausal ??23.0-116.3 Blood specimen (specimen) 06/22/2019 3:36 PM CDT 06/22/2019 3:37 PM CDT Clara Cornell MD LAB - BLOOD ORD ERABLES [facility] [address] [place] [address] * TSH with free T4 reflex FUTURE anytime (06/22/2019 3:36 PM CDT) TSH 3.30 0.40 - 4.00 mU/L 06/23/2019 3:12 PM CDT [facility] Blood specimen (specimen) 06/22/2019 3:36 PM CDT 06/22/2019 3:37 PM CDT Clara Cornell MD LAB - BLOOD ORD ERABLES [facility] [address] [place] [address] documented in this encounter Visit Diagnoses Diagnosis Anti-TPO antibodies present- Primary Other and unspecified nonspecific immunological findings Excessive sweating Generalized hyperhidrosis documented in this encounter Additional Health Concerns Assessment Noted Time PHQ-9 Depression Total Score: 0 06/15/20 19 7:09 PM CDT documented as of this encounter Care Teams Racing Board Marker Relationship Specialty Start Date End Date Yung Madrigal MD RETIRED PCP - Orthopaedics Orthopedics 08/26/12 01/20/24 Winston Villatoro OD [facility] [place] [address] [place] [address] PCP - Ophthalmology Ophthalmology 02/11/13 Clara Cornell MD [facility] [place] [address] [place] [address] PCP - General Internal Medicine 02/07/17 09/20/20 Denise Woodson Ra, APRN INDUSTRIAL REAL ESTATE AGENT [address] [place] [address] PCP - General Family Practice 09/21/20 Clara Cornell MD [address] [place] [address] Assigned PCP 01/17/17 07/16/20 Denise Woodson Ra, APRN INDUSTRIAL REAL ESTATE AGENT [address] [place] [address] Assigned PCP 07/17/20 documented as of this encounter
--- OUTSIDE RECORDS SUMMARY | 2024-01-21 14:22 | XMS_ITS | Encounter Summary ---
Author Name Unknown Organization [place] Address [address] [place] [address] Care Team Providers Care Landmen Name Role Phone Timmy Perez MD Unavailable Unavailable Yung Madrigal MD Unavailable Unavailable Winston Villatoro OD Unavailable [phone] Apple Sykes MD Primary Care Provider [phone] Westley Bates MD Unavailable [phone] Alessandra Cabrales APRN SUPERINTENDENT TESTS Primary Car e Provider Serum, Clara Garland MD Primary Care Provider Serum, Clara Garland MD Unavailable [phone] Serum, Clara Garland MD Unavailable [phone] Denise Woodson Ra, APRN SUPERINTENDENT TESTS Unavailable + [phone] Denise Woodson Ra, APRN, CNP Primary Care Provid er Encounter Details Date Type Department Care Team (Late st Contact Info) Description 05/06/2013 My[facility] Medical Advice [facility] [address] [place] [address] Apple Sykes MD [address] [place] [address] Social History Tobacco Use Types Packs/Day Years [...] Description 03/23/2024 10:30 AM CDT [facility] [address] [place] [address] Denise Woodson Ra, SENIOR PROCUREMENT MANAGER SUPERINTENDENT TESTS [address] [place] [address] documented as of this encounter Visit Diagnoses Not on filedocumented in this encounter Care Teams Landmen Relationship Specialty Start Date End Date Timmy Perez MD PCP - Obstetrics/Gynecology 03/02/08 08/07/15 Yung Madrigal MD RETIRED PCP - Orthopaedics Orthopedics 08/26/12 01/20/24 Winston Villatoro OD [facility] [place] [address] [place] [address] PCP - Ophthalmology Ophthalmology 02/11/13 Apple Sykes MD [facility] [place] [address] [place] [address] PCP - General Family Practice 05/04/13 10/25/16 Westley Btaes MD XXX RETIRED XXX [address] [place] [address] PCP - ENT Otolaryngology 05/14/13 07/28/18 Alessandra Cabrales APRN SUPERINTENDENT TESTS [address] [facility] [place] [address] PCP - General Nurse Practitioner 10/26/16 02/06/17 Clara Cornell MD [address] [facility] [place] [address] PCP - General Internal Medicine 02/07/17 09/20/20 Clara Cornell MD [address] [place] [address] PCP - Assigned PCP 01/17/17 11/18/18 Denise Woodson Ra, APRN SUPERINTENDENT TESTS [address] [place] [address] PCP - General Family Practice 09/21/20 Clara Cornell MD [address] [place] [address] Assigned PCP 01/17/17 07/16/20 Denise Woodson Ra, APRN SUPERINTENDENT TESTS [address] [place] [address] Assigned PCP 07/17/20 documented as of this encounter
--- OUTSIDE RECORDS SUMMARY | 2024-01-21 14:22 | XMS_ITS | Encounter Summary ---
Author Name Unknown Organization [place] Address [address] [place] [address] Care Team Providers Care Principal Architect Name Role Phone Timmy Perez MD Unavailable Unavailable Yung Madrigal MD Unavailable Unavailable Frw, None Primary Care Provider Unavailrigoberto e Winston Villatoro OD Unavailable [phone] Apple Sykes MD Primary Care Provider [phone] Westley Bates MD Unavailable [phone] GeorginaAlessandra Gómez APRN PROOF OPERATOR Primary Car e Provider Serum, Clara Garland MD Primary Care Provider Serum, Clara Garland MD Unavailable [phone] Serum, Clara Garland MD Unavailable [phone] Denise Woodson Ra, APRN PROOF OPERATOR Unavailable + [phone] Denise Woodson Ra, APRN PROOF OPERATOR Primary Care Provid er Encounter Details Date Type Department Care Team (Late st Contact Info) Description 01/30/2006 [facility] [place] Inpatient Dept [address] [place] [address] Frw, Inpatient Provider Social History Tobacco Use [...] pain. PROCEDURE: TOTAL VAGINAL HYSTERECTOMY. SURGEON: Chris OFFICE ADMINISTRATION: Radha ANESTHESIA: Spinal ESTIMATED BLOOD LOSS: 100 [...] Description 03/23/2024 10:30 AM CDT Office Visit [facility] [address] [place] [address] Denise Woodson Ra, RIG MECHANIC PROOF OPERATOR [address] [facility] [place], [place] [address] documented as of this encounter Visit Diagnoses Not on filedocumented in this encounter Care Teams Principal Architect Relationship Specialty Start Date End Date Timmy Perez MD PCP - Obstetrics/Gynecology 03/02/08 08/07/15 Yung Madrigal MD RETIRED PCP - Orthopaedics Orthopedics 08/26/12 01/20/24 Frw, None PCP - General Family Practice 08/26/12 05/03/13 Winston Villatoro OD [facility] [place] [address] [place] [address] PCP - Ophthalmology Ophthalmology 02/11/13 Apple Sykes MD [facility] [place] [address] [place] [address] PCP - General Family Practice 05/04/13 10/25/16 Westley Bates MD XXX RETIRED XXX [address] [place] [address] PCP - ENT Otolaryngology 05/14/13 07/28/18 Alessandra Cabrales APRN PROOF OPERATOR [address] [facility] [place] [address] PCP - General Nurse Practitioner 10/26/16 02/06/17 Clara Cornell MD [address] [facility] [place] [address] PCP - General Internal Medicine 02/07/17 09/20/20 Clara Cornell MD [address] [place] [address] PCP - Assigned PCP 01/17/17 11/18/18 Denise Woodson Ra, APRN PROOF OPERATOR [address] [place] [address] PCP - General Family Practice 09/21/20 Clara Cornell MD [address] [place] [address] Assigned PCP 01/17/17 07/16/20 Denise Woodson Ra, APRN PROOF OPERATOR [address] [place] [address] Assigned PCP 07/17/20 documented as of this encounter
--- OUTSIDE RECORDS SUMMARY | 2024-01-21 14:22 | XMS_ITS | Encounter Summary ---
Author Name Unknown Organization [place] Address [address] [place] [address] Care Team Providers Care Forensic Audit Expert Name Role Phone Yung Madrigal MD Unavailable Unavailable Winston Villatoro OD Unavailable [phone] Serum, Clara Garland MD Primary Care Provider Serum, Clara Garland MD Unavailable [phone] Denise Woodson Ra, APRN ROTARY SURFACE GRINDER Unavailable [phone] Denise Woodson Ra, APRN ROTARY SURFACE GRINDER Primary Care Provid er Encounter Details Date Type Department Care Team (Late st Contact Info) Description 06/16/2019 MyC Medical Advice [address] [place] [address] Serum, Clara Garland MD [address] [place] [address] Social History Tobacco Use Types [...] Description 03/23/2024 10:30 AM CDT Office Visit [address] [address] Denise Woodson Ra, APRN ROTARY SURFACE GRINDER [address] [place] [address] documented as of this encounter Visit Diagnoses Not on filedocumented in this encounter Additional Health Concerns Assessment Noted Time PHQ-9 Depression Total Score: 0 06/15/20 19 7:09 PM CDT documented as of this encounter Care Teams Forensic Audit Expert Relationship Specialty Start Date End Date Yung Madrigal MD RETIRED PCP - Orthopaedics Orthopedics 08/26/12 01/20/24 Winston Villatoro OD [facility] [place] [address] [place] [address] PCP - Ophthalmology Ophthalmology 02/11/13 Clara Cornell MD [facility] [place] [address] [place] [address] PCP - General Internal Medicine 02/07/17 09/20/20 Denise Woodson Ra, APRN ROTARY SURFACE GRINDER [address] [place] [address] PCP - General Family Practice 09/21/20 Clara Cornell MD [address] [place] [address] Assigned PCP 01/17/17 07/16/20 Denise Woodson Ra, APRN ROTARY SURFACE GRINDER [address] [place] [address] Assigned PCP 07/17/20 documented as of this encounter
--- OUTSIDE RECORDS SUMMARY | 2024-01-21 14:22 | XMS_ITS | Encounter Summary ---
Author Name Unknown Organization [place] Address [address] [place] [address] Care Team Providers Care Floor Clerk Name Role Phone Timmy Perez MD Unavailable Unavailable Yung Madrigal MD Unavailable Unavailable Frw, None Primary Care Provider Unavailabl e Winston Villatoro OD Unavailable [phone] Apple Sykes MD Primary Care Provider [phone] Westley Bates MD Unavailable [phone] Alessandra Cabrales APRN DIRECTOR LEARNING Primary Car e Provider Serum, Clara Garland MD Primary Care Provider Serum, Clara Garland MD Unavailable [phone] Serum, Clara Garland MD Unavailable [phone] Denise Woodson Ra, APRN DIRECTOR LEARNING Unavailable [phone] Denise Woodson Ra, APRN DIRECTOR LEARNING Primary Care Provid er Encounter Details Date Type Department Care Team (Late st Contact Info) Description 01/31/2006 [facility] [place] ENGINEER INTERN [address] [place] [phone] Timmy Perez MD Social History Tobacco Use [...] Description 03/23/2024 10:30 AM CDT Office Visit [facility] [address] [place] [address] Denise Woodson Ra, SURGICAL NURSE PRACTITIONER DIRECTOR LEARNING [address] [facility] [place], [place] [address] documented as of this encounter Visit Diagnoses Not on filedocumented in this encounter Care Teams Floor Clerk Relationship Specialty Start Date End Date Timmy Perez MD PCP - Obstetrics/Gynecology 03/02/08 08/07/15 Yung Madrigal MD RETIRED PCP - Orthopaedics Orthopedics 08/26/12 01/20/24 Frw, None PCP - General Family Practice 08/26/12 05/03/13 Winston Villatoro, OD [facility] [place] [address] [place] [address] PCP - Ophthalmology Ophthalmology 02/11/13 Apple Sykes MD [facility] [place] [address] [place] [address] PCP - General Family Practice 05/04/13 10/25/16 Westley Bates MD XXX RETIRED XXX [address] [place] [address] PCP - ENT Otolaryngology 05/14/13 07/28/18 Alessandra Cabrales APRN DIRECTOR LEARNING [address] [facility] [place] [address] PCP - General Nurse Practitioner 10/26/16 02/06/17 Clara Cornlel MD [address] [facility] [place] [address] PCP - General Internal Medicine 02/07/17 09/20/20 Clara Cornell MD [address] [place] [address] PCP - Assigned PCP 01/17/17 11/18/18 Denise Woodson Ra, APRN DIRECTOR LEARNING [address] [place] [address] PCP - General Family Practice 09/21/20 Clara Cornell MD [address] [place] [address] Assigned PCP 01/17/17 07/16/20 Denise Woodson Ra, APRN DIRECTOR LEARNING [address] [place] [address] Assigned PCP 07/17/20 documented as of this encounter
--- OUTSIDE RECORDS SUMMARY | 2024-01-21 14:22 | XMS_ITS | Encounter Summary ---
Author Name Unknown Organization [place] Address [address] [place] [address] Care Team Providers Care Weld Technician Name Role Phone Timmy Perez MD Unavailable Unavailable Yung Madrigal MD Unavailable Unavailable Winston Villatoro OD Unavailable [phone] Apple Sykes MD Primary Care Provider [phone] Westley Bates MD Unavailable [phone] Alessandra Cabrales APRN INTERNET TECHNOLOGY MANAGER Primary Car e Provider Serum, Clara Garland MD Primary Care Provider Serum, Clara Garland MD Unavailable Serum, Clara Garland MD Unavailable Denise Woodson Ra, APRN INTERNET TECHNOLOGY MANAGER Unavailable [phone] Denise Woodson Ra, APRN, CNP Primary Care Provid er Reason for Visit * Reason Onset Date Comments MyChart Communication 05/30/2013 Encounter Details Date Type Department Care Team (Latest Contact Info) Description 05/30/2013 MyC Medical Advice [facility] in [facility] [address] [place] [address] Apple Sykes MD [address] [place] [address] MyChart Communication Social History Tobacco Use Types [...] Description 03/23/2024 10:30 AM CDT Office Visit [facility] [address] [place] [address] Denise Woodson Ra, REIMBURSEMENT SPEC INTERNET TECHNOLOGY MANAGER [address] [place], [place] [address] documented as of this encounter Visit Diagnoses Not on filedocumented in this encounter Care Teams Weld Technician Relationship Specialty Start Date End Date Timmy Perez MD PCP - Obstetrics/Gynecology 03/02/08 08/07/15 Yung Madrigal MD RETIRED PCP - Orthopaedics Orthopedics 08/26/12 01/20/[address] [facility] [place] [address] [place] [address] PCP - Ophthalmology Ophthalmology 02/11/[address] [facility] [place] [address] [facility] [address] [place] [address] PCP - General Family Practice 05/04/13 10/25/16 Westley Bates MD XXX RETIRED XXX [address] [place] [address] PCP - ENT Otolaryngology 05/14/13 07/28/18 Alessandra Cabrales APRN INTERNET TECHNOLOGY MANAGER [address] [place] [address] [place] [address] PCP - General Nurse Practitioner 10/26/16 02/06/17 Clara Cornell MD [address] [facility] [place] [address] PCP - General Internal Medicine 02/07/17 09/20/20 Clara Cornell MD [address] [place] [address] PCP - Assigned PCP 01/17/17 11/18/18 Denise Woodson Ra, APRN INTERNET TECHNOLOGY MANAGER [address] [place] [address] PCP - General Family Practice 09/21/20 Clara Cornell MD [address] [place] [address] Assigned PCP 01/17/17 07/16/20 Denise Woodson Ra, APRN INTERNET TECHNOLOGY MANAGER [address] [place] [address] Assigned PCP 07/17/20 documented as of this encounter
--- OUTSIDE RECORDS SUMMARY | 2024-01-21 14:22 | XMS_ITS | Encounter Summary ---
Author Name Unknown Organization [place] Address [address] [place] [address] Care Team Providers Care Floral Specialist Name Role Phone Timmy Perez MD Unavailable Unavailable Yung Madrigal MD Unavailable Unavailable Winston Villatoro OD Unavailable [phone] Apple Sykes MD Primary Care Provider [phone] Westley Bates MD Unavailable [phone] Alessandra Cabrales APRN CARDIOLOGY ASSOCIATE Primary Car e Provider Serum, Clara Garland MD Primary Care Provider Serum, Clara Garland MD Unavailable [phone] Serum, Clara Garland MD Unavailable [phone] Denise Woodson Ra, APRN CARDIOLOGY ASSOCIATE Unavailable + [phone] Denise Woodson Ra, APRN, CNP Primary Care Provid er Encounter Details Date Type Department Care Team (Late st Contact Info) Description 05/19/2013 MyC Medical Advice [facility] [place] Orthopedics [address] [place] [phone] Yung Madrigal MD RETIRED Social History Tobacco [...] 10:30 AM CDT Office Visit [facility] [address] [facility] [place] [address] Denise Woodson Ra, TEAM LEADER SURGERY CARDIOLOGY ASSOCIATE [address] [facility] [place], [place] [address] documented as of this encounter Visit Diagnoses Not on filedocumented in this encounter Care Teams Floral Specialist Relationship Specialty Start Date End Date Timmy Perez MD PCP - Obstetrics/Gynecology 03/02/08 08/07/15 Yung Madrigal MD RETIRED PCP - Orthopaedics Orthopedics 08/26/12 01/20/24 Winston Villatoro, OD [facility] [place] [address] [place] [address] PCP - Ophthalmology Ophthalmology 02/11/13 Apple Sykes MD [facility] [place] [address] [place] [address] PCP - General Family Practice 05/04/13 10/25/16 Westley Bates MD XXX RETIRED XXX [address] [place] [address] PCP - ENT Otolaryngology 05/14/13 07/28/18 Alessandra Cabrales APRN CARDIOLOGY ASSOCIATE [address] [place] [address] [place] [address] PCP - General Nurse Practitioner 10/26/16 02/06/17 Clara Cornell MD [address] [facility] [place] [address] PCP - General Internal Medicine 02/07/17 09/20/20 Clara Cornell MD [address] [place] [address] PCP - Assigned PCP 01/17/17 11/18/18 Denise Woodson Ra, APRN CARDIOLOGY ASSOCIATE [address] [place] [address] PCP - General Family Practice 09/21/20 Clara Cornell MD [address] [place] [address] Assigned PCP 01/17/17 07/16/20 Denise Woodson Ra, APRN CARDIOLOGY ASSOCIATE [address] [place] [address] Assigned PCP 07/17/20 documented as of this encounter
== END 2024-01-17 12:01 | disposition home or self-care (01) ==
LOC: AMB 01-21 14:17
PROVIDERS: PCP Family Medicine; Visit Provider Family Medicine
DX: I67.82 Cerebral ischemia (principal); R56.9 Unspecified convulsions
CPT/HCPCS: A0425; A0428

== ENCOUNTER 2024-01-31 10:48 | Emergency (ER) | payer OTHER, SELFPAY ==
[2024-01-31 11:16] VITALS: BP 163/91; PULSE 71; RESP 20; TEMP 36.3; O2SAT 97; BMI 32.7
--- NOTE | 2024-01-31 11:37 | ED_ITS ---
HPI - General Adult General Chief complaint: Cough Stated complaint: cough/shortness of breath Time Seen by Provider: 01/31/24 11:07 History of Present Illness HPI narrative: Patient is a 48-year-old female who had a stroke recently from cerebral angiogram that was done. This apparently done at [facility]. The patient has recovering. Last night she developed a cough some left-sided chest discomfort from the cough and with a cough. She is not real short of breath, but has had a more productive cough, little bit of chills, no fever, O2 sat is 97% on presentation here. No leg swelling or edema. She has had no chest pain unless she coughs or takes a deep breath. She has had a history of asthma. Also history of fibromuscular dysplasia, seizure, ocular migraine , chronic pelvic pain, mild persistent asthma. She reports no lower extremity swelling she has been ambulatory. Related Data Home Medications Medication Instructions Recorded Confirmed fluticasone furoate 200 1 inh inhalation DAILY 07/03/22 01/31/24 mcg-vilanterol 25 mcg/dose inhalation powder (Breo Ellipta) albuterol sulfate 90 mcg/actuation 2 puff inhalation Q6H PRN 08/01/22 01/31/24 aerosol inhaler magnesium 250 mg tablet 250 mg PO HS 08/02/22 01/31/24 trazodone 100 mg tablet 100 mg PO HS sleep 08/02/22 01/31/24 cetirizine 10 mg tablet (Zyrtec) 10 mg PO DAILY 10/08/23 01/31/24 levetiracetam 750 mg tablet 750 mg PO BID 01/31/24 01/31/24 rosuvastatin 20 mg tablet 20 mg PO QPM 01/31/24 01/31/24 Previous Rx's Medication Instructions Recorded ketorolac 10 mg tablet 10 mg PO Q6H PRN pain 5 days #20 07/03/22 tabs prednisone 20 mg tablet 20 mg PO BID #6 tabs 01/31/24 Allergies Allergy/AdvReac Type Severity Reaction Status Date / Time bupropion Allergy Intermediate Diarrhea Verified 01/31/24 11:23 codeine Allergy Intermediate epigastric Verified 01/31/24 11:23 pain erythromycin base Allergy Intermediate stomach Verified 01/31/24 11:23 upset, diarrhea Review of Systems Status of ROS: Reports: 6 or more systems reviewed and unremarkable except as noted in History and below [facility] Medical History Headache ?R51.9 - Headache, unspecified (ICD-10) Asthma ?J45.909 - Unspecified asthma, uncomplicated (ICD-10) History of blood transfusion (1994) ?Z92.89 - Personal history of other medical treatment (ICD-10) History of vitamin D deficiency ?Z86.39 - Personal history of other endocrine, nutritional and metabolic disease (ICD-10) Anxiety and depression ?F41.9 - Anxiety disorder, unspecified (ICD-10) ?F32.A - Depression, unspecified (ICD-10) Fibromyalgia ?M79.7 - Fibromyalgia (ICD-10) Mild persistent asthma ?J45.30 - Mild persistent asthma, uncomplicated (ICD-10) H/O bronchopulmonary dysplasia ?Z87.09 - Personal history of other diseases of the respiratory system (ICD- 10) Stage 1 chronic kidney disease (11/16/20) ?N18.1 - Chronic kidney disease, stage 1 (ICD-10) Simple renal cyst (10/2020) ?N28.1 - Cyst of kidney, acquired (ICD-10) 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, unspecified (ICD-10) Asthma ?J45.909 - Unspecified asthma, uncomplicated (ICD-10) Surgical History History of laparoscopy ?Z98.890 - Other specified postprocedural states (ICD-10) S/P dilation and curettage (1994) ?Z98.890 - Other specified postprocedural states (ICD-10) H/O tubal ligation ?Z98.51 - Tubal ligation status (ICD-10) Status post excision of lipoma (2011) ?Z98.890 - Other specified postprocedural states (ICD-10) ?Z86.018 - Personal history of other benign neoplasm (ICD-10) History of medial meniscus repair of left knee (08/04/13) ?Z98.890 - Other specified postprocedural states (ICD-10) History of laparoscopic cholecystectomy (09/29/20) ?Z90.49 - Acquired absence of other specified parts of digestive tract (ICD- 10) History of hysterectomy for benign disease (2005) ?Z90.710 - Acquired absence of both cervix and uterus (ICD-10) History of catheter-based closure of atrial septal defect (06/2006) ?Z87.74 - Personal history of (corrected) congenital malformations of heart and circulatory system (ICD-10) Family History Maternal Grandmother Stroke Paternal Grandfather Diabetes Daughter Depression Social History Narrative: She recently moved to [place]. 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 She has a college education She exercises 5 days a week with walking in treadmill 2M She does not smoke She does not drink alcohol or use recreational drugs What is your current living situation?: I presently have a place to live Problems where you live: no known problems Problems where you live details: na In the past 12 months, utilities in danger of being shut off: no In past 12 months, lack of transportation kept you from medical appts, meetings, work, or getting things needed for daily living: no In the past 12 mos, have been you worried that your food would run out before you had money to buy more?: never true In the past 12 mos, the food you bought just didn't last and you didn't have money to buy more?: never true Highest level of school completed/degree received: Associate degree: occupational, technical, vocational program Smoking Status: Never smoker Do you use any of these nicotine containing products: None Second hand tobacco smoke exposure: No How often do you have a drink containing alcohol: never How often do you have six or more drinks on one occasion: Never AUDIT-C Alcohol total score: 0 Non-prescribed substance use: denies use Caffeine: Yes How often does anyone, including family, friends and others, physically hurt you : never How often does anyone, including family, friends and others, insult or talk down to you: never How often does anyone, including family, friends and others, threaten you with harm: never How often does anyone, including family, friends and others, scream or curse at you: never Little interest or pleasure in doing things: not at all Feeling down, depressed, or hopeless: not at all Are you using contraception or practicing any form of control: Yes (hysterectomy) service: No Exam Narrative: Exam Narrative: Objective: The patient is alert oriented no distress Vital signs are within normal limits other than slightly elevated systolic pressure, O2 sats 97% on room air Alert orient x3 Lung exam is clear bilaterally Heart rhythm regular heart murmur No palpable chest wall pain, when the patient deep breathe ease she feels some discomfort along her left parasternal area. Const: Vital Signs, click to edit/add: Vital Signs - 24 hr 01/31/24 11:16 01/31/24 13:10 Temperature 97.4 F L 97.4 F L Pulse Rate [Right] 71 71 Respiratory Rate 20 20 Blood Pressure [Ri ght Upper Arm] 163/91 H 163/91 H Pulse Oximetry 97 Oxygen Delivery Me thod Room Air Course Vital Signs Vital signs: Initial Vital Signs Temperature 97.4 F L 01/31/24 11:16 Temperature Source Temporal Artery Scan 01/31/24 11:16 Pulse Rate 71 01/31/24 11:16 Pulse Rhythm Regular 01/31/24 11:16 Respiratory Rate 20 01/31/24 11:16 Blood Pressure 163/91 H 01/31/24 11:16 Blood Pressure Mean 115 H 01/31/24 11:16 Blood Pressure Position Sitting 01/31/24 11:16 Pulse Oximetry 97 01/31/24 11:16 Oxygen Delivery Method Room Air 01/31/24 11:16 Vital Signs Temperature 97.4 F L 01/31/24 11:16 Pulse Rate 71 01/31/24 11:16 Respiratory Rate 20 01/31/24 11:16 Blood Pressure 163/91 H 01/31/24 11:16 Pulse Oximetry 97 01/31/24 11:16 Oxygen Delivery Method Room Air 01/31/24 11:16 Temperature 97.4 F L 01/31/24 13:10 Pulse Rate 71 01/31/24 13:10 Respiratory Rate 20 01/31/24 13:10 Blood Pressure 163/91 H 01/31/24 13:10 Pulse Oximetry 97 01/31/24 11:16 Oxygen Delivery Method Room Air 01/31/24 11:16 Medical Decision Making MDM Narrative Medical decision making narrative: 48-year-old female with onset of cough history of asthma, starting last night. Some low-grade chills. More production to her cough. Suspect this is an infectious etiology. Would check a chest x-ray, will check a COVID/influenza/RSV test as well. Disposition pending findings above. Addendum 12:26 p.m. the patient reports that she had a stroke with the procedure, but she has improved rapidly over the last 3 weeks. She was tested for all kinds of clotting disorders and she has none of them. Specifically she has no protein C protein S deficiency or factor 5 laden mutation. The patient reports no leg swelling or edema. She reports she has had a cough and has histo ry of asthma. I think it be reasonable given she has a chest discomfort with cough and onset of cough yesterday that we treat her with some prednisone 20 mg b.i.d. x3 days. The patient also reports she had some brownish productive production to her cough which is unusual for her this morning but she has not had any since. Her O2 sat here is 97% she is afebrile. I do not think antibiotics would be required at this time given the started last night, but she needs careful monitoring of her symptoms. If she worsens or changes she should return back to the ED for reassessment. Her x-rays are mention looks reassuring, and will try the prednisone. I do not believe this constitutes acute coronary syndrome or a PE given her symptoms and presence of a productive cough. Return if any shortness of breath, chills, or other concern. Otherwise follow-up with primary care in the next 3-4 days. Lab Data Labs: Lab Results 01/31/24 Range/Units 11:37 SARS-CoV-2 (PCR) Negative SARS-CoV-2 (Negative) Influenza Type A (PCR) Negative PCR FLU A (Negative) Influenza Type B (PCR) Negative PCR FLU B (Negative) RSV (PCR) Negative PCR RSV (Negative) Discharge Plan Discharge Clinical Impression: Cough, Chest wall pain Patient Disposition: Home w/ Parent or Adult Condition: Stable Additional Instructions: Light activity, continue home medications, prednisone 20 mg b.i.d. x3 days. Return to the ED problems or concerns, otherwise follow up with primary care in the next 3-4 days. Activity Level: Light activity Discharge Diet: Regular Prescriptions: New prednisone 20 mg tablet 20 mg PO BID Qty: 6 0RF No Action cetirizine [Zyrtec] 10 mg tablet 10 mg PO DAILY albuterol sulfate 90 mcg/actuation HFA aerosol inhaler 2 puff inhalation Q6H PRN magnesium 250 mg tablet 250 mg PO HS levetiracetam 750 mg tablet 750 mg PO BID rosuvastatin 20 mg tablet 20 mg PO QPM fluticasone furoate-vilanterol [Breo Ellipta] 200-25 mcg/dose blister with device 1 inh INHALATION DAILY ketorolac 10 mg tablet 10 mg PO Q6H PRN (Reason: pain) 5 Days Qty: 20 0RF trazodone 100 mg tablet 100 mg PO HS Follow Up/Referrals: Keira Irvin MD [Primary Care Provider] - Stand Alone Forms: [facility] Info Instructions
--- NOTE | 2024-01-31 11:37 | XR_ITS ---
Patient: CHRISTOPHER TY Facility:?[facility] Patient ID:?[id number] Site Patient ID:?[id number]. Site :?[id number] Study:?XRay-Chest 1 VIEW PORTABLE-01/31/2024 11:50:10 AM Ordering Physician:CORBY Final Report: INDICATION: Cough COMPARISON: None TECHNIQUE: Single-view study obtained portably FINDINGS: TUBES AND LINES: None. HEART AND MEDIASTINUM: Top-normal size heart. LUNGS AND PLEURAL SPACES: The lungs appear normal.The pleural spaces are unremarkable. OSSEOUS STRUCTURES: Age-appropriate appearance. No acute focal finding. IMPRESSION: Top-normal size heart. The lungs and pleural spaces appear normal. Dictated by Miah Bella MD @ 01/31/2024 12:14:02 PM Signed by:?Miah Bella MD @01/31/2024 12:14:02 PM (Electronic Signature)
--- OUTSIDE RECORDS SUMMARY | 2024-01-31 12:05 | XMS_ITS | Clinical Summary ---
Author Name Unknown Organization [facility] Address [address] [place] [address] Care Team Providers Care Idea Man Name Role Phone Darius Shaw M.D. Primary Care Provider [phone] Source Comments Patient records contain information from all sites at [facility]. For routine questions regarding patient records, call [phone] during business hours, M-F 8:00 AM - 5:00 PM Central Time. Record requests for emergency care only can be directed to [phone] at any time.[facility] Allergies Active Allergy Reactions Criticality Noted [...] 100 mg by mouth at bedtime. Active buPROPion (Wellbutrin SR) 100 mg 12 hr tablet Take 1 tablet (100 mg total) by mouth 2 (two) times a day. 60 tablet 11 01/10/2023 Active albuterol 90 mcg/actuation inhaler Inhale 2 puffs every 4 (four) hours as needed for wheezing. 8 g 11 01/10/2023 Active Breo Ellipta 200-25 mcg/dose inhaler Inhale 1 puff daily. 60 each 3 01/28/2024 Active traZODone (DESYREL) 100 mg tablet Take 1 tablet (100 mg total) by mouth at bedtime. 90 tablet 3 01/28/2024 Active traZODone (DESYREL) 100 mg tablet Take 1 tablet (100 mg total) by mouth at bedtime. 30 tablet 11 01/10/2023 4 Discontinued fluticasone furoate-vilanter oL (Breo Ellipta) 200-25 mcg/act inhaler Inhale 1 puff daily. 180 each 3 01/10/2023 4 Discontinued Active Problems Problem Noted Date Diagnosed Date [...] episode, severe, without mention of psychotic behavior Encounters Date Type Department Care Team Description 01/28/2024 Refill Department of Family Medicine, [facility], in [address] [phone] Darius Shaw M.D. Med Refill from Last 3 Months Immunizations Name Administration [...] week 01/10/2023 How often do you attend hinduism or confucianism serv ices? Never 01/10/2023 Do you belong to any clubs o r organizations such as hinduism groups, unions, fraternal or athletic groups, or [...] Answer Date Recorded PHQ-2 Score 3 01/10/2023 [facility] - Occupational [...] place to sleep or slept in a intermediate (including now)? No 01/10/2023 Depression Answer Date [...] history exists Fasting Glucose for Diabetes Screening 01/20/2027 01/21/2024, 01/20/2024, 01/19/2024, Additional history exists DTaP,Tdap,and Td Vaccines (3 - Td or Tdap) 01/04/2031 01/04/2021, 01/26/2011, 04/05/2003, Additional history exists Hepatitis B Vaccines Completed 03/03/2012, 11/07/2011, 10/04/2011 Medical Devices Implanted Type Area Fancy Sewer Device Identifier Shelf Expiration Date Model / Serial / Lot Mesh Or Patch Mesh or Patch Heart Description:Amplatzer Septal Occluder Asd Closure Device 34mm - Sanders [id number] Implanted:Qty: 1 on 06/20/2006 Septal Defect Occluder Device Other/Legacy - See Implant Description Description:Device Manufactu rer - [employer]. Device Status Text - [id number]. Procedures Procedure Name Priority Date/Time Associated Diagnosis Comments EXTI BASIC METABOLIC PANEL, FASTING, S Routine 01/21/2024 5:51 AM CDT BI BREAST SCREENING BILATERAL WITH TOMOSYNTHESIS RAD - Routine (most inpatients and all outpatients) 07/30/2023 2:38 PM PROJECT FACILITATOR Screening Mammogram Breast Cancer COLOGUARD Routine 10/28/2022 5:54 PM PROJECT FACILITATOR Screening Cancer Colon EXTI LIPID PANEL REFLEX TO DIRECT LDL Routine 07/27/2021 8:57 AM PROJECT FACILITATOR from Last 3 Months or Most Recently Relevant to Health Maintenance Results * BI Breast Screening Bilateral with Tomosynthesis (07/30/2023 2:38 PM PROJECT FACILITATOR) Anatomical Region Laterality Modality Breast, Breast Imaging RST L OS, Breast Imaging ARZ LOS, Breast Imaging FLA LOS Bilateral Mammography 08/01/2023 12:2 8 PM PROJECT FACILITATOR Impressions 08/01/2023 12:33 PM PROJECT FACILITATOR Negative. RECOMMENDATION: ??Annual Screening Mammogram ASSESSMENT: ??BI-RADS: 1: Negative. Narrative 08/01/2023 12:33 PM PROJECT FACILITATOR EXAM: ??BI BREAST SCREENING BILATERAL WITH TOMOSYNTHESIS [...] ASSESSMENT: BI-RADS: 1: Negative. Darius Shaw M.D. [facility] [place] * Cologuard-Sent Out Lab (10/28/2022 5:54 PM PROJECT FACILITATOR) Result Negative Negative 11/03/2022 2:48 AM PROJECT FACILITATOR EXLI Comment: NEGATIVE TEST RESULT. A negative [...] Gates et al, N Engl J Med 2014;370(14):7006-0593) The normal value (reference range) for this assay is negative. COLOGUARD RE-SCREENING RECOMMENDATION: Periodic colorectal cancer screening is an important part of preventive healthcare for asymptomatic individuals at average risk for colorectal cancer. ??Following a negative Cologuard result, the [place] [employer] Society and U.S. Multi-Society Task Force screening guidelines recommend a Cologuard re-screening interval of 3 years. References: [place] [employer] Guideline for Colorectal Cancer Screening: https://www.cancer.org/cancer/aydow-qsxtje-jusewn/detection- diagnosis-staging/acs-recommendations.html.; Ming MARTINEZ, Barbra TREJO, Erna FRANK, Colorectal Cancer Screening: Recommendations for Physicians and Patients from the U.S. Multi-Society Task Force on Colorectal Cancer Screening , Am J Gastroenterology 2017; 112:2361-1215. TEST DESCRIPTION: Composite algorithmic analysis of stool [...] (Yenny Adkins al, N Engl J Med 2014;370(14):8264-1143.) Cologuard may produce a false negative or false positive result (no colorectal cancer or precancerous polyp present at colonoscopy follow up). A negative Cologuard test result does not guarantee the absence of CRC or advanced adenoma (pre-cancer). The current Cologuard screening interval is every 3 years. ([place] [employer] Society and U.S. Multi-Society Task Force). Cologuard performance data in a 10,000 patient pivotal study using colonoscopy as the reference method can be accessed at the following location: www.linkedFA/results. Additional description of the Cologuard test process, warnings and precautions can be found at www.Float: [place].Kluster. Stool (Stool) 10/28/2022 5:5 4 PM PROJECT FACILITATOR 10/30/2022 1:57 PM PROJECT FACILITATOR Darius Shaw M.D. LAB BODY FLUIDS AND STOOLS ORDERABLES [facility] [address] [place] [address] [facility] [address] [facility], [address] [place] [address] from Last 3 Months or Most Recently Relevant to Health Maintenance Advance Directives For more information, please contact: [phone] * Full Code (Latest Code Status on File) Date Activated Date Inactivated Comments 09/30/2022 4:41 PM 10/02/2022 6:08 PM Question Answer Comments Full Code: Discussed Care Teams Idea Man Relationship Specialty Start Date End Date Darius Shaw M.D. WES: [phone] [address] [phone] PCP - General Family Medicine 09/27/22
--- OUTSIDE RECORDS SUMMARY | 2024-01-31 12:05 | XMS_ITS | Encounter Summary ---
Author Name Unknown Organization [facility] Address [address] [place] [address] Care Team Providers Care Field Collector Name Role Phone Darius Shaw M.D. Primary Care Provider Encounter Details Date Type Department Care Team (Late st Contact Info) Description 05/12/2013 Historical Ophthalmology [facility] Jonathan Bonilla M.D. [address] [place] [phone] Social History Tobacco Use Types Packs/Day Years [...] corneal thickness CDM Reports - EYEGEN Id: [id number] Status: Fnl documented in this encounter Plan of Treatment Not on file documented as of this encounter Visit Diagnoses Not on filedocumented in this encounter Additional Health Concerns Infection Onset Date Last Indicated Resolved Time COVID19 Pending 07/11/2020 07/11/2020 07/12/2020 5 :56 PM CDT COVID19 Pending 07/17/2020 07/17/2020 07/17/2020 9 :18 PM EXTRAS CASTING DIRECTOR COVID19 Pending 09/19/2020 09/19/2020 10/09/2020 4 :45 AM EXTRAS CASTING DIRECTOR COVID19 Pending 10/25/2020 10/26/2020 10/27/2020 9 :59 AM EXTRAS CASTING DIRECTOR COVID19 Pending 06/03/2021 06/03/2021 06/03/2021 9 :40 AM CDT COVID19 Pending 06/03/2021 06/03/2021 06/03/2021 1 0:36 PM CDT COVID19 Pending 08/09/2021 08/09/2021 08/11/2021 1 2:57 AM EXTRAS CASTING DIRECTOR COVID19 Pending 06/26/2022 06/26/2022 06/26/2022 5 :47 PM CDT Assessment Noted Time PHQ-9 Depression Total Score: 8 09/18/19 13 7:41 AM EXTRAS CASTING DIRECTOR documented as of this encounter Care Teams Field Collector Relationship Specialty Start Date End Date Darius Shaw M.D. [id number] [phone] PCP - General Family Medicine 09/27/22 documented as of this encounter
--- OUTSIDE RECORDS SUMMARY | 2024-01-31 12:05 | XMS_ITS | Continuity of Care Document ---
Author Name Unknown Organization [facility] Address [address] [address] [place] [address] Phone Care Team Providers Care Sales Service Professional Name Role Phone Unavailable Unavailable Unavailable Procedures Procedure Date Ugi Endo; Dx W/wo Collec Specm Advance Directives Directive Yes / No Effective Date File Name No Information Encounters Encounter Description Practice Location Reason(s) For Visit Diagnoses Date Provider Providers Copied on Encounter [facility], [address] [address], [place], [place], [id number], [place] tel:[phone] [facility] No Information 021 No Information [facility], [address] [address], [facility] [place], [id number], [place] tel:[phone] [facility] No Information 021 No Information [facility], [address] [address], [place], [place], [id number], [place] tel:[phone] No Information Unknown No Information Family History [...] Registry Payers Payer name Insurance type Covered green party ID Authoriza tion(s) No Information Social History [...]
--- OUTSIDE RECORDS SUMMARY | 2024-01-31 12:05 | XMS_ITS | Clinical Summary ---
Author Name Unknown Organization [facility] Address [place], [place] [address] Care Team Providers Care Home Care Aide Name Role Phone Keira Irvin MD Primary [...] durable medical equipment (DME)Indications: Plantar fasciitis, bilateral [id number] Plantar Fasciitis, night splint, Large 1 Each [...] Type Department Care Team Description 01/21/2024 Telephone [facility] [address] [place] [address] Fercho Valladares MD Referral 01/15/2024 11:00 AM CDT Ancillary Procedure [facility] [address] [place] [address] 01/15/[address] [facility] [address] [place] [phone] Bette Mantilla MD Telehealth ([facility]) 01/15/2024 Travel 01/14/[address] [facility] [address] [place] [phone] Bette Mantilla MD Telehealth ([facility]) 01/14/2024 Telephone [facility] [address] [place] [address] Fercho Valladares MD Referral 01/14/2024 Office Visit [facility] [address] [place] [phone] Roshni Molina MD Telehealth ([facility]) 01/13/[address] [facility] [address] [place] [address] Anastasia Walden NP Error-please disregard 01/13/[address] [facility] [address] [place] [address] Anastasia Walden NP Questions 01/10/[address] [facility] [address] [place] [address] Timoteo Gutierrez MD <No scans attached> 01/10/[address] [facility] [address] [place] [address] Aby Saxena NP Follow Up 01/09/2024 1:20 PM CDT - 01/09/2024 3:30 PM CDT Hospital Encounter [facility] [address] [place] [address] Timoteo Gutierrez MD AVF (arteriovenous fistula) (HC) (Primary Dx); Tinnitus, left ear; Headache Discharge Disposition: Home Self Care 01/09/2024 Travel from Last 3 Months Immunizations Name Administration Dates Next Due COVID-19 vaccine ([employer] 30mcg/0.3mL) CORKY ROSARIO 07/07/2021 Hepatitis B, Unspecified [...] REFLEX MEASURED LDL Routine 08/03/2011 10:31 AM DRILLING FIELD PROFESSIONAL Screening for other and unspecified cardiovascular conditions [...] PM CDT ECHOCARDIOGRAM CHRISTOPHER TY ?Accession#: ?? [id number] : ?1975 48 years Study Date: ?? 01/15/2024 11:27:48 AM Gender: F ? BP: ? 154/84 mmHg Height: 173.00 cm ? BSA: ?2.09 m? ? ? Weight: 95.00 kg ?Tech: ? MSR ?Referring MD: HANG BERGERON Site: ? [facility] Reading Location: Mobile STAT Patient Location: Inpatient. [...] documentation: 3.5 ml diluted Definity, lot #[id number], [facility]# [id number] was administered peripherally to enhance visualization of all left ventricular segments. . This study was interpreted by an [facility] accredited facility. CC: HIM (med records) [facility], Med/Surg - IP [facility]. ??Final ?? Procedure Note Dillan Garcia MD - 01/15/2024 ECHOCARDIOGRAM CHRISTOPHER TY : 1975 48 years Study Date: 01/15/2024 11:27:48 AM Gender: F BP: 154/84 mmHg Height: 173.00 cm BSA: 2.09 m? ? ? Weight: 95.00 kg Tech: JUANJO Referring MD: HANG BERGERON Site: [facility] Reading Location: Mobile STAT Patient [...] documentation: 3.5 ml diluted Definity, lot #[id number], [facility]#[id number] was administered peripherally to enhance visualization of allleft ventricular segments. . This study was interpreted by an [facility] accredited facility. CC: HIM (med records) [facility], [facility]/Surg - IP [facility]. Final Hang Bergeron DO ECHO ORD * [...] 01/09/2024 1:12:05 PM (Electronically Signed) Anastasia Walden MISSILE INSPECTOR PREFLIGHT CT * IR ANGIO CAROTID CEREBRAL BILATERAL [...] of the examination. Timoteo Gutierrez M.D. Neurointerventionalist [facility] [employer] [facility] Pager: Office/Appointments: Answering Service: [facility]: [email or web address] Narrative 01/09/2024 9:57 AM CDT PHYSICIAN: Timoteo Gutierrez DATE: 01/09/2024. PROCEDURE: CEREBRAL ANGIOGRAM Selective catheter placement, right internal carotid artery, with angiography of the intracranial carotid circulation (CPT 68294) Selective catheter placement, right external carotid artery, with angiography of the external carotid circulation (CPT +25468) Selective catheter placement, left internal carotid artery, with angiography of the intracranial carotid circulation (CPT 61540) Selective catheter placement, left external carotid artery, with angiography of the external carotid circulation (CPT +79433) Selective catheter placement, right vertebral artery, with angiography of the vertebral circulation (CPT 37481) Selective catheter placement, left vertebral artery, with angiography of the vertebral circulation (CPT 39218) Ultrasound guidance for vascular access: right radial artery access (CPT +20346) Monitored conscious sedation: 50min (CPT 62284, CPT +12786 x2) CLINICAL HISTORY: 48 year-old female with [...] right radial percutaneous arterial puncture and a 5-Wolof sheath was placed. After infusion of a heparin, verapamil and nitroglycerin cocktail via the sheath, contrast was then injected via the sheath to assess the arterial anatomy in the right forearm. Subsequently using a 5-Wolof angled tip catheter and glidewire combination, selective [...] The anterior communicating artery is ??opacified from [id number]. The capillary, venous, and venous sinus phases [...] ??The anterior communicating artery is opacified from [id number]. Right vertebral artery injection: There is normal [...] W REFLEX MEASURED LDL (08/03/2011 10:31 AM DRILLING FIELD PROFESSIONAL) CHOLESTEROL,TOTAL 171 110 - 199 mg/dL [facility] TRIGLYCERIDES 67 <150 mg/dL [facility] HDL CHOLESTEROL 43 >40 mg/dL [facility] CHOL/HDL RATIO 3.98 <4.51 [facility] LDL CHOLESTEROL 115 <131 mg/dL [facility] PATIENT STATUS Fasting [facility] Blood specimen (specimen) BLOOD SPECIMEN / Unknown 08/03/2011 10:31 AM DRILLING FIELD PROFESSIONAL 08/03/2011 10:23 AM DRILLING FIELD PROFESSIONAL Jasvir Pickens MD CHEMISTRY [facility] [address] [place] [address] from Last 3 Months or Most Recently Relevant to Health Maintenance Advance Directives * Full Code (Latest Code Status on File) Date Activated Date Inactivated Comments 01/09/2024 7:44 AM 01/09/2024 6:26 PM Question Answer Comments Code Status Discussion: Reviewed Preferences Care Teams Home Care Aide Relationship Specialty Start Date End Date Keira Irvin MD [address] [place] [address] PCP - General Family Practice 01/08/24
--- OUTSIDE RECORDS SUMMARY | 2024-01-31 12:05 | XMS_ITS | Referral Summary ---
Author Name Unknown Organization [facility] Address [address] [place] [address] Care Team Providers Care Military Analyst Name Role Phone Darius Shaw M.D. Primary Care Provider [phone] Source Comments Patient records contain information from all sites at [facility]. For routine questions regarding patient records, call [phone] during business hours, M-F 8:00 AM - 5:00 PM Central Time. Record requests for emergency care only can be directed to [phone] at any time.[facility] Encounters Date Type Department Care Team Description 01/28/2024 Refill Department of Family Medicine, [facility], in [address] [phone] Darius Shaw M.D. Med Refill from Last 3 Months Allergies Active Allergy [...] week 01/10/2023 How often do you attend anabaptism or congregational serv ices? Never 01/10/2023 Do you belong to any clubs o r organizations such as anabaptism groups, unions, fraternal or athletic groups, or [...] Answer Date Recorded PHQ-2 Score 3 01/10/2023 [facility] - Occupational [...] place to sleep or slept in a long-term (including now)? No 01/10/2023 Depression Answer Date [...] on file Medical Devices Implanted Type Area Pulp Screen Operator Device Identifier Shelf Expiration Date Model / Serial / Lot Mesh Or Patch Mesh or Patch Heart Description:Amplatzer Septal Occluder Asd Closure Device 34mm - Sanders [id number] Implanted:Qty: 1 on 06/20/2006 Septal Defect Occluder Device Other/Legacy - See Implant Description Description:Device Manufactu rer - Gelesis. Device Status Text - [id number]. Procedures Procedure Name Priority Date/Time Associated Diagnosis Comments EXTI BASIC METABOLIC PANEL, FASTING, S Routine 01/21/2024 5:51 AM CDT BI BREAST SCREENING BILATERAL WITH TOMOSYNTHESIS RAD - Routine (most inpatients and all outpatients) 07/30/2023 2:38 PM DOUBLE CUTTER Screening Mammogram Breast Cancer COLOGUARD Routine 10/28/2022 5:54 PM DOUBLE CUTTER Screening Cancer Colon EXTI LIPID PANEL REFLEX TO DIRECT LDL Routine 07/27/2021 8:57 AM DOUBLE CUTTER from Last 3 Months or Most Recently Relevant to Health Maintenance Results * BI Breast Screening Bilateral with Tomosynthesis (07/30/2023 2:38 PM DOUBLE CUTTER) Anatomical Region Laterality Modality Breast, Breast Imaging RST L OS, Breast Imaging ARZ LOS, Breast Imaging FLA LOS Bilateral Mammography 08/01/2023 12:2 8 PM DOUBLE CUTTER Impressions 08/01/2023 12:33 PM DOUBLE CUTTER Negative. RECOMMENDATION: ??Annual Screening Mammogram ASSESSMENT: ??BI-RADS: 1: Negative. Narrative 08/01/2023 12:33 PM DOUBLE CUTTER EXAM: ??BI BREAST SCREENING BILATERAL WITH TOMOSYNTHESIS [...] ASSESSMENT: BI-RADS: 1: Negative. Darius Shaw M.D. [facility] [place] PROCEDURES * Cologuard-Sent Out Lab (10/28/2022 5:54 PM DOUBLE CUTTER) Result Negative Negative 11/03/2022 2:48 AM DOUBLE CUTTER EXLI Comment: NEGATIVE TEST RESULT. A negative [...] (Yenny Adkins al, N Engl J Med 2014;370(14):4476-6706) The normal value (reference range) for this assay is negative. COLOGUARD RE-SCREENING RECOMMENDATION: Periodic colorectal cancer screening is an important part of preventive healthcare for asymptomatic individuals at average risk for colorectal cancer. ??Following a negative Cologuard result, the [place] and U.S. Multi-Society Task Force screening guidelines recommend a Cologuard re-screening interval of 3 years. References: [place] [employer] Guideline for Colorectal Cancer Screening: https://www.cancer.org/cancer/cgbsr-fohmqu-ysilpu/detection- diagnosis-staging/acs-recommendations.html.; Ming DK, Barbra CR, Erna SimsK, Colorectal Cancer Screening: Recommendations for Physicians and Patients from the U.S. Multi-Society Task Force on Colorectal Cancer Screening , Am J Gastroenterology 2017; 112:0037-3334. TEST DESCRIPTION: Composite algorithmic analysis of stool [...] (Yenny Adkins al, N Engl J Med 2014;370(14):4492-5496.) Cologuard may produce a false negative or false positive result (no colorectal cancer or precancerous polyp present at colonoscopy follow up). A negative Cologuard test result does not guarantee the absence of CRC or advanced adenoma (pre-cancer). The current Cologuard screening interval is every 3 years. ([place] [employer] and U.S. Multi-Society Task Force). Cologuard performance data in a 10,000 patient pivotal study using colonoscopy as the reference method can be accessed at the following location: [email or web address]/results. Additional description of the Cologuard test process, warnings and precautions can be found at [email or web address]. Stool (Stool) 10/28/2022 5:5 4 PM DOUBLE CUTTER 10/30/2022 1:57 PM DOUBLE CUTTER Darius Shaw M.D. LAB BODY FLUIDS AND STOOLS ORDERABLES [employer] [address] [place] [address] [address] [employer] [address] [facility], [address] [place] [address] from Last 3 Months or Most Recently Relevant to Health Maintenance Advance Directives For more information, please contact: [phone] * Full Code (Latest Code Status on File) Date Activated Date Inactivated Comments 09/30/2022 4:41 PM 10/02/2022 6:08 PM Question Answer Comments Full Code: Discussed Care Teams Military Analyst Relationship Specialty Start Date End Date Darius Shaw M.D. [address] [phone] PCP - General Family Medicine 09/27/22
--- OUTSIDE RECORDS SUMMARY | 2024-01-31 12:05 | XMS_ITS | Encounter Summary ---
Author Name Unknown Organization [facility] Address [address] [place] [address] Care Team Providers Care Control Tower Radio Operator Name Role Phone Darius Shaw M.D. Primary Care Provider [phone]- [phone] Reason for Visit * Reason Comments Med Refill Encounter Details Date Type Department Care Team (Late st Contact Info) Description 01/28/2024 Refill Department of Family Medicine, [facility], in [address] [phone] Darius Shaw M.D. [address] [place] [phone] Med Refill Social History Tobacco Use Types Packs/Day [...] week 01/10/2023 How often do you attend samaritan or yazidi serv ices? Never 01/10/2023 Do you belong to any clubs o r organizations such as samaritan groups, unions, fraternal or athletic groups, or [...] Answer Date Recorded PHQ-2 Score 3 01/10/2023 [facility] - Occupational Stress Questionnaire Answer Date Recorded [...] place to sleep or slept in a retirement (including now)? No 01/10/2023 Depression Answer Date [...] Assessment Noted Time PHQ-9 Depression Total Score: 16 023 8:13 AM CDT documented as of this encounter Care Teams Control Tower Radio Operator Relationship Specialty Start Date End Date Darius Shaw M.D. WES: [phone] [address] [place] [phone] PCP - General Family Medicine 09/27/22 documented as of this encounter
--- OUTSIDE RECORDS SUMMARY | 2024-01-31 12:06 | XMS_ITS | Clinical Summary ---
Author Name Unknown Organization [facility] Address [address] [place] [address] Care Team Providers Care Material Control Analyst Name Role Phone Winston Villatoro OD Unavailable [phone] Denise Woodson Ra, APRN REAL ESTATE ECONOMIST Unavailable [phone] Denise Woodson Ra, APRN REAL ESTATE ECONOMIST Primary Care Provid er Usha Simon APRN REAL ESTATE ECONOMIST Unavailable [phone] Dangelo Salinas MD Unavailable Allergies Active Allergy Reactions Criticality Noted Date Comments Bupropion GI Disturbance,Other (See Comments) Low 01/19/2011 Diarrhea and stomach ache Codeine GI Disturbance High 09/23/2022 Other Reaction(s): epigastric pain Erythromycin GI Disturbance Low 12/27/2005 Mold Dizziness,GI Disturbance 08/22/2012 Medications Medication Sig Dispensed Refills Start Date End Date Status albuterol (PROAIR HFA/PROVENTIL HFA/VENTOLIN HFA) 108 (90 Base) MCG/ACT inhalerIndication s:Moderate persistent asthma without complication Inhale 2 puffs into the lungs every 4 hours as needed for shortness of breath / dyspnea or wheezing 1 Inhaler 3 0 Active traZODone (DESYREL) 50 MG tabletIndications :Insomnia, unspecified type Take 2 tablets (100 mg) by mouth At Bedtime 180 tablet 3 1 Active BREO ELLIPTA 200-25 MCG/INH InhalerIndication s:Moderate persistent asthma without complication INHALE 1 PUFF INTO THE LUNGS DAILY 3 each 1 2 Active cetirizine (ZYRTEC) 10 MG tablet Take 10 mg by mouth daily Active psyllium (METAMUCIL) 28.3 % packet Take 1 packet by mouth daily Active Lidocaine (LIDOCARE) 4 % PatchIndications: Fibromyalgia,Pain of right upper extremity Place 1 patch onto the skin every 24 hours To prevent lidocaine toxicity, patient should be patch free for 12 hrs daily. 4 Active calcium carbonate (TUMS) 500 MG chewable tabletIndications :Nausea Take 1 tablet (500 mg) by mouth 4 times daily as needed for heartburn 4 Active Additional Information Patient not taking.Reported on 01/31/2024 senna-docusate (SENOKOT-S/JIMMY LACE) 8.6-50 MG tabletIndications :Other constipation Take 2 tablets by mouth 2 times daily as needed for constipation 4 Active Additional Information Patient not taking.Reported on 01/31/2024 methyl salicylate-mentho l (ICY HOT) ointmentIndicatio ns:Fibromyalgia,P ain of right upper extremity Apply topically every 6 hours as needed (pain) 4 Active acetaminophen (TYLENOL) 500 MG tabletIndications :Fibromyalgia,Tony n of right upper extremity Take 1-2 tablets (500-1,000 mg) by mouth 3 times daily as needed for mild pain or headaches 4 Active aspirin (ASA) 325 MG EC tabletIndications :Cerebrovascular accident (CVA), unspecified mechanism (H) Take 1 tablet (325 mg) by mouth daily 30 tablet 4 Active hydrOXYzine HCl (ATARAX) 50 MG tabletIndications :Generalized anxiety disorder Take 0.5-1 tablets (25-50 mg) by mouth every 6 hours as needed for anxiety or other (sleep) 60 tablet 4 Active Additional Information Patient not taking.Reported on 01/31/2024 levETIRAcetam (KEPPRA) 750 MG tabletIndications :History of seizure Take 1 tablet (750 mg) by mouth 2 times daily 60 tablet 4 Active magnesium oxide 200 MG TABS Ok to take magnesium supplement of your preference 4 Active rosuvastatin (CRESTOR) 20 MG tabletIndications :Cerebrovascular accident (CVA), unspecified mechanism (H) Take 1 tablet (20 mg) by mouth at bedtime 30 tablet 4 Active cyclobenzaprine (FLEXERIL) 10 MG tabletIndications :Neck muscle spasm Take 1 tablet (10 mg) by mouth 3 times daily as needed for muscle spasms 20 tablet 7 Discontinued(Me d Rec(No AVS / No eCancel)) Chelated Magnesium 100 MG TABS Take 100 mg by mouth At Bedtime Discontinued(Me d Rec(No AVS / No eCancel)) fluticasone (FLONASE) 50 MCG/ACT nasal sprayIndications: Chronic rhinitis [place] 2 sprays into both nostrils daily 16 g 3 9 Discontinued(Me d Rec(No AVS / No eCancel)) aspirin (ASA) 325 MG EC tablet Take 325 mg by mouth daily 024 Discontinued levETIRAcetam (KEPPRA) 750 MG tablet Take 750 mg by mouth 2 times daily Discontinued magnesium oxide 200 MG TABS Take 200 mg by mouth at bedtime Discontinued rosuvastatin (CRESTOR) 20 MG tablet Take 20 mg by mouth at bedtime Discontinued acetaminophen (TYLENOL) 325 MG tabletIndications :Fibromyalgia,Tony n of right upper extremity Take 3 tablets (975 mg) by mouth 3 times daily 4 Discontinued celecoxib (CELEBREX) 100 MG capsuleIndication s:Fibromyalgia,Pa in of right upper extremity Take 1 capsule (100 mg) by mouth 2 times daily 4 024 Discontinued(St op at Discharge) diclofenac (VOLTAREN) 1 % topical gelIndications:Fi bromyalgia,Pain of right upper extremity Apply 2 g topically 4 times daily as needed for moderate pain 4 Discontinued(St op at Discharge) hydrOXYzine HCl (ATARAX) 50 MG tabletIndications :Generalized anxiety disorder Take 1 tablet (50 mg) by mouth nightly as needed for anxiety 4 Discontinued oxyCODONE (ROXICODONE) 5 MG tabletIndications :Fibromyalgia,Tony n of right upper extremity Take 1 tablet (5 mg) by mouth every 6 hours as needed for severe pain (If pain not controlled with other pain modalities) 4 024 Discontinued(St op at Discharge) ondansetron (ZOFRAN ODT) 4 MG ODT tabIndications:Na usea Take 1 tablet (4 mg) by mouth every 6 hours as needed for nausea or vomiting 4 024 Discontinued(St op at Discharge) enoxaparin ANTICOAGULANT (LOVENOX) 40 MG/0.4ML syringeIndication s:History of stroke Inject 0.4 mLs (40 mg) Subcutaneous every 24 hours . 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 Seizure-like activity 01/20/2024 History of seizure 01/20/2024 [...] Encounters Date Type Department Care Team Description 01/31/2024 9:30 AM CDT Office Visit [facility] [address] [address] Jeevan Sheth MD George, Seena Susan, APRN REAL ESTATE ECONOMIST Dural arteriovenous fistula 01/31/2024 PRE VISIT [facility] [address] [phone] Usha Simon APRN REAL ESTATE ECONOMIST *-*INCOMING RECORDS*-* 01/30/2024 11:00 AM CDT Therapy Visit [address] [phone] Danya You, Aliya Luu, OTJah Activity of daily living alteration (Primary Dx); Cerebrovascular accident (CVA), unspecified mechanism (H); Alteration in instrumental activities of daily living (IADL) 01/30/2024 Travel 01/30/2024 MyC Medical Advice [facility] Neurology [address] [phone] Stacey Kelley, RN 01/30/2024 Telephone [facility] [address] [phone] Stacey Kelley, RN 01/29/2024 9:30 AM CDT Therapy Visit [address] [address] Danya You PA Morgan, Lindsay M, ARTIFICIAL INSEMINATOR Cerebrovascular accident (CVA), unspecified mechanism (H) 01/29/2024 MyC Medical Advice [address] [phone] Danya Restrepo, ARTIFICIAL INSEMINATOR 01/28/2024 1:15 PM CDT Therapy Visit [address] [phone] Danya You, Delicia Higgins, PT Cerebrovascular accident (CVA), unspecified mechanism (H) 01/28/2024 Travel 01/27/2024 Travel 01/27/2024 Telephone [facility] [address] [place] [address] None 01/27/2024 MyC Medical Advice [facility] [address] [place] [address] Phoebe Del Cid 01/25/2024 Travel 01/23/2024 Telephone [facility] [address] [place] [address] None Appointment (Referral-Stroke hospital follow up) 01/23/[address] [facility] [address] [place] [phone] Delisa Manuel MD Dural arteriovenous fistula (Primary Dx) 01/22/2024 2:38 PM CDT - 01/26/2024 12:31 PM CDT Hospital Encounter [facility] [address] [phone] Parminder Del Angel MD Cerebrovascular accident (CVA), unspecified mechanism (H) (Primary Dx); Fibromyalgia; Pain of right upper extremity; Generalized anxiety disorder; History of seizure; Mild recurrent major depression (H24) Discharge Disposition: Home or Self Care 01/21/2024 8:30 [address] [facility] EEG [address] [place] [address] Kev Ansari MD Choudhary, Kriti, MD 01/19/2024 11:16 PM CDT - 01/22/2024 2:19 PM CDT Hospital Encounter [facility] [address] [place] [phone] Luis Reynolds DO Choudhary, Kriti, MD Traxler, Matthew, MD Fibromyalgia (Primary Dx); Pain of right upper extremity; Nausea; Other constipation; Generalized anxiety disorder; History of stroke; Seizure-like activity (H); History of seizure; Cerebrovascular accident (CVA), unspecified mechanism (H); Dural arteriovenous fistula Discharge Disposition: Acute Rehab Facility 01/17/2024 1:09 PM CDT - 01/19/2024 10:07 PM CDT Hospital Encounter [address] [address] Parminder Del Angel MD Al [...] Reading Time Taken Comments Blood Pressure 134/82 01/31/2024 9:19 AM CDT Pulse 80 01/31/2024 9:17 AM CDT Temperature 36.2 ??C (97.2 ??F) 01/26/2024 8:18 AM CD T Respiratory Rate 16 01/31/2024 9:17 AM CDT Oxygen Saturation 97% 01/31/2024 9:17 AM CDT Inhaled Oxygen Concentration - - Weight 98.5 kg (217 lb 3.2 oz) 01/31/2024 9:17 A M CDT Height 174.5 cm (5' 8.7) 01/31/2024 9:17 AM CDT Body Mass Index 32.35 01/31/2024 9:17 AM CDT Plan of Treatment Upcoming Encounters Date Type Department Care Team (Late st Contact Info) Description 02/03/2024 8:45 AM CDT Therapy Visit [facility] [address] [phone] Denise Woodson Ra, ROAD FREIGHT CONDUCTOR REAL ESTATE ECONOMIST [address] [place], [place] [phone] Addis Rojas, PT [facility] [address] [place] [address] 02/04/2024 PRE VISIT [facility] [address] [phone] Raul Hoyos MD [address] [place] [phone] *-*INCOMING RECORDS*-* 02/04/2024 11:00 AM CDT Virtual Visit [facility] [address] [address] Raul Hoyos MD [address] [place] [phone] 02/06/2024 8:30 AM CDT Office Visit [facility] [address] [place] [address] Chintan Denise , ROAD FREIGHT CONDUCTOR REAL ESTATE ECONOMIST [address] [place] [address] 02/07/2024 2:00 PM CDT Therapy Visit [facility] [address] [place] [phone] Danya You, PA 2450 [facility] [address] [place] [address] Charis Chacon, [facility] [address] [place], [place] [address] 02/14/2024 12:45 PM CDT Therapy Visit [address] [phone] Danya You, PA [address] 8[address] Isabel Beaulieu, JAIMIE [address] [address] 02/14/2024 2:00 PM CDT Therapy Visit [address] [phone] [place] [address] [place] [address] [phone] Charis Chacon, [facility] [address] [place], [place] [address] 02/14/2024 2:45 PM CDT Therapy Visit [address] [phone] Danya You, PA [address] [place] [address] Maria Eugenia Nguyen, PT [address] [place] [address] 02/17/2024 2:45 PM CDT Therapy Visit [address] [phone] Danya You, PA [address] [place] [address] Aliya Kim, ARTIFICIAL INSEMINATOR [address] [facility], [address] [place] [address] 02/19/2024 3:00 PM CDT Therapy Visit [address] [phone] Danya You, PA [address] [place] [address] Isabel Beaulieu, OTR [address] [address] 02/26/2024 2:15 PM CDT Therapy Visit [address] [address] Danya You, PA [address] [address] Charis Chacon, [facility] [address] [place] [address] 02/26/2024 3:00 PM CDT Therapy Visit [facility] [address] [place] [address] Danya You, PA [address] [place] [address] Isabel Beaulieu, OTR [facility] [address] [place] [address] 02/27/2024 4:45 PM CDT [facility] [address] [place] [phone] Danya You, PA 2450 [facility] [address] [place] [address] Vanessa Duggan, PT 03/05/2024 1:30 PM CDT [facility] [address] [place] [phone] Danya You, AMAIRANI 2450 [facility] [address] [address] Isabel Beaulieu, OTR [facility] [address] [place] [address] 03/05/2024 3:15 PM CDT Therapy Visit [facility] [address] [place] [phone] Danya You, AMAIRANI 2450 [facility] [address] [address] Charis Chacon, [facility] [address] [place] [address] 03/05/2024 4:15 PM CDT Therapy Visit [facility] [address] [place] [phone] Danya You, AMAIRANI [address] [phone] Delicia George, PT [address] 8[address]045 03/11/2024 2:15 PM CDT Therapy Visit [facility] [address] [place] [phone] Danya You, PA [address] [address] Isabel Beaulieu, OTJah [address] [address] 03/11/2024 3:00 PM CDT Therapy Visit [address] [phone] Danya You, PA [facility] [address] [address] Charis Chacon, [facility] [address] [place] [address] 03/11/2024 4:15 PM CDT Therapy Visit [address] [phone] Danya You, PA [facility] [address] [address] Delicia George, PT [address] [phone] 03/17/2024 1:30 PM CDT Therapy Visit [address] [address] Danya You, PA [address] [address] Isabel Beaulieu, OTR [address] [address] 03/17/2024 2:30 PM CDT Therapy Visit [address] [phone] Danya You, PA [facility] [address] [address] Charis Chacon, [facility] [address] [place] [address] 03/17/2024 4:00 PM CDT Therapy Visit [address] [phone] Danya You, PA [address] [place] [address] Delicia George, PT [facility] [address] [place] [address] 03/23/2024 10:30 AM CDT Office Visit [facility] [phone] [place] [phone] Denise Woodson Ra, ROAD FREIGHT CONDUCTOR [facility] [address] [place], [place] [phone] 03/26/2024 1:30 PM CDT Therapy Visit [address] [phone] Danya You, AMAIRANI [address] [place] [address] Isabel Beaulieu, OTR [address] [address] 03/26/2024 2:30 PM CDT Therapy Visit [address] [phone] Danya You, AMAIRANI [address] [place] [address] Charis Chacon, [facility] [address] [place] [address] 03/26/2024 3:30 PM CDT Therapy Visit [address] [phone] Danya You, PA [address] [place] [address] Delicia George, PT [facility] [address] [place] [address] 04/02/2024 2:15 PM CDT Therapy Visit [address] [phone] Danya You, PA [address] [place] [address] Isabel Beaulieu, OTR [facility] [address] [place] [address] 04/02/2024 3:15 PM CDT Therapy Visit [address] [phone] Danya You, PA [address] [address] Charis Chacon, [facility] [address] [place], [place] [address] 04/02/2024 4:15 PM CDT Therapy Visit [address] [phone] Danya You, PA [address] [address] Delicia eGorge, PT [facility] [address] [address] 04/09/2024 3:15 PM CDT Therapy Visit [address] [phone] Danya You, PA [address] 085424 Charis Chacon, [facility] [address] [place], [place] [address] 04/09/2024 4:15 PM CDT Therapy Visit [address] [address] Danya You, PA [address] [place] [address] Delicia George, PT [facility] [address] [place] [address] 04/15/2024 9:30 AM CDT Therapy Visit [address] [address] Danya You, PA [address] [address] Danya Restrepo, ARTIFICIAL INSEMINATOR 04/23/2024 2:30 PM CDT Therapy Visit [address] [phone] Danya You PA [facility] [address] [address] Charis Chacon, [facility] [address] [place] [address] 06/23/2024 11:00 AM CDT Virtual Visit [facility] [address] [address] Kristin Vázquez, [facility] [address] [place] [address] 06/30/2024 2:00 PM CDT Virtual Visit [facility] [address] [place] [address] Kristin Vázquez, [facility] [address] [facility] [place] [phone] Health Maintenance Due Date Last Done Comments ADVANCE CARE PLANNING 1976 CT COLONOGRAPHY 1976 FIT 1976 FLEX SIG 1976 COLONOSCOPY 1986 HIV SCREENING 1991 HEPATITIS C SCREENING 1994 Pneumococcal Vaccine: Pediatrics (0 to 5 Years) and At-Risk Patients (6 to 64 Years) (2 of 2 - PCV) 03/16/2005 03/16/2004 PHQ-9 12/22/2021 06/23/2021, 0409/2020, 06/15/2019, Additional history exists ANNUAL REVIEW OF [...] Procedure Name Priority Date/Time Associated Diagnosis Comments LUPUS ANTICOAGULANT PANEL Routine 01/21/2024 1:20 PM CDT FACTOR 2 ASSAY Routine 01/21/2024 1:20 PM CDT EEG VIDEO 2-12 HRS UNMONITORED Routine 01/21/2024 12:15 PM CDT CBC WITH PLATELETS & DIFFERENTIAL Routine 01/21/2024 5:51 AM CDT CARDIOLIPIN FARIBA IGG AND IGM Add-On 01/21/2024 5:51 AM CDT CBC WITH PLATELETS AND DIFFERENTIAL Routine 01/21/2024 5:51 AM CDT BASIC METABOLIC PANEL Routine 01/21/2024 5:51 AM CDT MRA NECK (CAROTIDS) W/O & W CONTRAST STAT 01/20/2024 6:54 PM CDT MR BRAIN W/O & W CONTRAST STAT 01/20/2024 6:53 PM CDT MRA BRAIN ([place]) W/O CONTRAST STAT 01/20/2024 6:50 [...] PLATELET COUNT Timed 01/18/2024 5:40 AM CDT LAB RESULT - HIM SCAN 01/15/2024 12:00 AM CDT MRI IMAGING - HIM SCAN 12:00 AM CDT US IMAGING - HIM SCAN 01/12/2024 12:[address] IMAGING - HIM SCAN 01/07/2024 12:[address] VASCULAR - HIM SCAN 12:[address] VASCULAR - HIM SCAN 12:[address] IMAGING - HIM SCAN 01/04/2024 12:00 AM CDT MA SCREENING BILATERAL W/ FLO Routine 07/30/2023 2:38 PM CORPORATE COMPLIANCE OFFICER LIPID REFLEX TO DIRECT LDL PANEL Routine 07/27/2021 8:57 AM CORPORATE COMPLIANCE OFFICER CARDIOVASCULAR SCREENING; LDL GOAL LESS THAN 160 ASTHMA ACTION PLAN Routine 01/04/2021 9: 09 AM CDT from Last 3 Months or Most Recently Relevant to Health Maintenance Results * Lupus Anticoagulant Panel (01/21/2024 1:20 PM CDT) INR 0.92 0.85 - 1.15 4 2:25 PM CDT [facility] Thrombin Time 16.9 13.0 - 19.0 Seconds 4 2:25 PM CDT [facility] PTT Ratio 0.92 <1.21 4 2:25 PM CDT [facility] DRVVT Screen Ratio 1.01 <1.08 4 2:25 PM CDT [facility] Lupus Result Negative Negative 4 2:25 PM CDT [facility] Lupus Interpretation The INR is normal. APTT ratio is normal. ?? DRVVT Screen ratio is normal. Thrombin time is normal. NEGATIVE TEST; A LUPUS ANTICOAGULANT WAS NOT DETECTED IN THIS SPECIMEN WITHIN THE LIMITS OF THE TESTING REPERTOIRE. If the clinical picture is strongly suggestive of an antiphospholipid syndrome, recommend anticardiolipin and rpeb-9-iymrohphkrd n (IgG and IgM) antibody tests. Mikayla Cooper MD, PhD [facility] 4 2:25 PM CDT [facility] Blood STRUCTURE OF RIGHT HAND / Unknown Venipuncture / Unknown 01/21/2024 1:20 PM CDT 01/21/2024 1:26 PM CDT Airam Jay MD LAB - BLOOD ORDERABL ES Performing Organization Address City/[facility] Co de Phone Number [facility] [address] [facility], [address] [place] [address] * Factor 2 assay (01/21/2024 1:20 PM CDT) Factor 2 Assay 131 60 - 140 % 01/22/2024 9:53 AM CDT [facility] Comment: The Factor 2 activity level is not a screening test for the Prothrombin 27845 mutation. Blood STRUCTURE OF RIGHT HAND / Unknown Venipuncture / Unknown 01/21/2024 1:20 PM CDT 01/21/2024 1:26 PM CDT Airam Jay MD LAB - BLOOD ORDERABL ES Performing Organization Address City/[facility] Co de Phone Number [facility] [address] [facility], [address] [place] [address] * EEG Video 2-12 HRS [facility] (01/21/2024 12:15 PM CDT) Narrative [facility] - 01/21/2024 3:06 PM CDT EEG Video 2-12 HRS [facility] Result VIDEO EEG DATE: 01/21/2024 VIDEO EEG [id number] VIDEO EEG DAY#: 1 VIDEO EEG SOURCE FILE DURATION: 3 hours 17 minutes PATIENT INFORMATION: Alcon Zamora is a 48 year old year old female with PMH Lizy-Danlos syndrome, MONAE, MDD, asthma, fibromyalgia, history of ASD (repaired), and recent cerebral angiogram (01/08) complicated by multifocal stroke (01/12) and witness grand-mal seizure admitted 01/19/24 for seizure-like activity. ??EEG is being done to evaluate for seizures and determine interictal and ictal burden. MEDICATIONS: Hyrdroxyzine 50mg qn Keppra 750mg bid Trazadone 100mg qn TECHNICAL SUMMARY: This is a video-EEG monitoring study. EEG was recorded from 23 scalp electrodes placed according to the 10-20 international system. Additional electrodes were utilized for referencing, artifact detection, and recording from other cerebral regions. Qualified technicians attached EEG electrodes, set up the study, monitored and reviewed EEG recordings, and disconnected EEG electrodes when appropriate. Video was continuously recorded. Video was reviewed for clinical correlation and to assist with EEG interpretations. RESULTS: BACKGROUND ACTIVITIES: During maximal wakefulness, there is symmetric, moderate amplitude, well formed 9 Hz posterior dominant rhythm, which attenuates with eye opening. Sleep stages were not recorded. ACTIVATION PROCEDURES: Hyperventilation and photic stimulations were not performed. INTERICTAL ACTIVITIES: There are no epileptiform abnormalities. ICTAL ACTIVITIES: There are no clinical or electrographic seizures during this recording. Impression: ??This is a normal EEG. Kev Ansari MD EPILEPSY STAFF Airam Jay MD IMG EEG ORDERABLES [id number] * CBC with platelets and differential (01/21/2024 [...] LAB - BLOOD ORDERABL ES UR LABORATORY [facility] [address] [facility], [address] [place] [phone] * Cardiolipin Fariba IgG and IgM (01/21/2024 5:51 AM CDT) Cardiolipin Fariba IgG Instrument Value <2.0 <10.0 GPL-U/mL 01/22/2024 12:03 PM CDT SPECIALTY CORE/PROT/END O Cardiolipin Antibody IgG Negative Negative 01/22/2024 12:03 PM CDT SPECIALTY CORE/PROT/END O Cardiolipin Fariba IgM Instrument Value <2.0 <10.0 MPL-U/mL 01/22/2024 12:03 PM CDT SPECIALTY CORE/PROT/END O Cardiolipin Antibody IgM Negative Negative 01/22/2024 12:03 PM CDT SPECIALTY CORE/PROT/END O Blood STRUCTURE OF RIGHT HAND / Unknown Venipuncture / Unknown 01/21/2024 5:51 AM CDT 01/21/2024 6:22 AM CDT Airam Jay MD LAB - BLOOD ORDERABL ES [facility] SPECIALTY CORE/PROT/ENDO Specialty Core/Prot/Endo [address] [facility], [address] * Basic metabolic panel (01/21/2024 5:51 AM CDT) Only the most recent of3 resultswithin the time period is included. Sodium 139 135 - 145 mmol/L 01/21/2024 [...] LAB - BLOOD ORDERABL ES UR LABORATORY [facility] [address] [facility], [address] [place] [phone] * MRA Neck (Carotids) wo & w [...] findings. ANA LATHAM MD Airam Jay MD [facility] MRI ORDERABLES * MR Brain w/o & [...] findings. ANA LATHAM MD Airam Jay MD [facility] MRI ORDERABLES * MRA Brain ([place]) wo Contrast (01/20/2024 6:50 PM CDT) Anatomical Region Laterality Modality Head, SUBRAD MR NEURO, UMP MR NEURO, RAD MR Magnetic Resonance Impressions 01/20/2024 7:49 PM CDT IMPRESSION: No intracranial arterial aneurysm or stenosis. I have personally reviewed the examination and initial interpretation and I agree with the findings. ANA LATHAM MD Narrative 01/20/2024 7:49 PM CDT EXAM MRA BRAIN ([place]) W/O CONTRAST 01/20/2024 6:50 PM HISTORY: Multifocal CVA 01/12 with seizure like activity 5/5; Neuro rec'd repeat MRI to rule out recurrent CVA COMPARISON: No images. Outside CTA report for 01/09/2024 obtained through Care Everywhere. TECHNIQUE: Using a 3D axdo-dt-hclbng image acquisition technique, MRA of the major [...] Latham MD - 01/20/2024 EXAM MRA BRAIN ([place]) W/O CONTRAST 01/20/2024 6:50 PM HISTORY: Multifocal CVA 01/12 with seizure like activity 5/5; Neuro rec'd repeat MRI to rule out recurrent CVA COMPARISON: No images. Outside CTA report for 01/09/2024 obtained through Care Everywhere. TECHNIQUE: Using a 3D lgnq-bs-bsmypo image acquisition technique, MRA of the major [...] with the findings. ANA LATHAM MD Airam Sukharan MD [facility] MRI ORDERABLES * Troponin T, High Sensitivity [...] DO LAB - BLOOD ORDERABLES UR LABORATORY [facility] [address] [place] [address], [address] [place] [address] * Lactic acid whole blood (01/19/2024 11:55 PM CDT) Lactic Acid 1.1 0.7 - 2.0 mmol/L 01/20/2024 12:03 AM CDT UR LABORATORY Blood STRUCTURE OF RIGHT UPPER LIMB / Unknown Venipuncture / Unknown 01/19/2024 11:55 PM CDT 01/20/2024 12:01 AM CDT Len Camejo DO LAB - BLOOD ORDERABLES UR LABORATORY [facility] [address] [place] [address], [address] [place] [address] * Extra Purple Top Tube (01/19/2024 11:54 PM CDT) Hold Specimen JIC 01/20/2024 1:04 AM CDT UR LABORATORY Blood BLOOD SPECIMEN / Unknown Venipuncture / Unknown 01/19/2024 11:54 PM CDT 01/20/2024 12:03 AM CDT Luis Reynolds DO LAB - BLOOD ORDERABL ES UR LABORATORY [facility] [address] [facility], [address] [place] [address] * CT Head w/o Contrast (01/19/2024 10:34 [...] the vertex were obtained without intravenous contrast. Manager Client Support (topogram) image(s) also obtained and reviewed. FINDINGS: [...] the vertex were obtained without intravenous contrast. Manager Client Support (topogram) image(s) also obtained and reviewed. FINDINGS: [...] the findings. ANA LATHAM MD Randy Kwon APRN, CNP IMG CT ORDERABLES * EKG 12-lead, complete (01/19/2024 10:33 PM CDT) Systolic Blood Pressure mmHg RADIOLOGY RESULTS Diastolic Blood Pressure mmHg RADIOLOGY RESULTS Ventricular Rate 84 BPM RAD IOLOGY RESULTS Atrial Rate 84 BPM RADIOLOG Y RESULTS AZ Interval 168 ms RADIOLOG Y RESULTS QRS Duration 82 ms RADIOLO GY RESULTS QT 374 ms RADIOLOGY RESULTS QTc 441 ms RADIOLOGY RESULTS P Mellott 30 degrees RADIOLOGY RESULTS R AXIS 36 degrees RADIOLOGY RESULTS T Mellott -13 degrees RADIOLOGY RESULTS Interpretation ECG Sinus rhythm with frequent Premature ventricular complexes Abnormal ECG No previous ECGs available Confirmed by MD MAN JANE ([id number]) on 01/20/2024 9:02:28 AM RADIOLOGY RESULTS 01/19/2024 10:3 3 PM CDT 01/20/2024 9:02 AM CDT Randy Kwon APRN, CNP ECG ORDERABLES RADIOLOGY RESULTS * INR (01/19/2024 9:33 PM CDT) INR 0.87 0.85 - 1.15 01/19/2024 10:17 PM CDT UR LABORATORY Blood BLOOD SPECIMEN / Unknown Venipuncture / Unknown 01/19/2024 9:33 PM CDT 01/19/2024 9:54 PM CDT Randy Kwon APRN [facility] LAB - BLOOD ORDER NASRIN UR LABORATORY [facility] [address] [facility], [address] [place] [address], [facility] * Prolactin (01/19/2024 9:33 PM CDT) Pathologist [facility] Prolactin 22 5 - 23 ng/mL 01/19/2024 11:23 PM CDT U LABORATORY Blood BLOOD SPECIMEN / Unknown Venipuncture / Unknown 01/19/2024 9:33 PM CDT 01/19/2024 9:54 PM CDT Randy Kwon APRN REAL ESTATE ECONOMIST LAB - BLOOD ORDER NASRIN UU LABORATORY [facility] Core Lab [address] [facility], [address] [place] [address], [facility] * Partial thromboplastin time (01/19/2024 9:33 PM CDT) Pathologist [facility] aPTT 25 22 - 38 Seconds 01/19/2024 10:18 PM CDT UR LABORATORY Blood BLOOD SPECIMEN / Unknown Venipuncture / Unknown 01/19/2024 9:33 PM CDT 01/19/2024 9:54 PM CDT Randy Kwon APRN [facility] LAB - BLOOD ORDER NASRIN UR LABORATORY [facility] [address] [facility], [address] [place] [address], [facility] * Fibrinogen activity (01/19/2024 9:33 PM CDT) Fibrinogen Activity 417 170 - 490 mg/dL 01/19/2024 10:18 PM CDT UR LABORATORY Blood BLOOD SPECIMEN / Unknown Venipuncture / Unknown 01/19/2024 9:33 PM CDT 01/19/2024 9:54 PM CDT Randy Kwon APRN, CNP LAB - BLOOD ORDER NASRIN UR LABORATORY [facility] [address] [place] [address] [address] * Extra Green Top (Crimora Heparin) Tube (01/18/2024 5:40 AM CDT) Hold Specimen JIC 01/18/2024 7:32 AM CDT UR LABORATORY Blood STRUCTURE OF RIGHT UPPER LIMB / Unknown Venipuncture / Unknown 01/18/2024 5:40 AM CDT 01/18/2024 6:18 AM CDT Parminder Del Angel MD LAB - BLOOD ORDERABL ES Performing Organization Address City/[facility]/ZIP Co de Phone Number UR LABORATORY [facility] [address] [place] [address], [address] [address], [facility] * Platelet count - Routine (01/18/2024 5:40 AM CDT) Platelet Count 217 150 - 450 10e3/uL 01/18/2024 6:15 AM CDT UR LABORATORY Blood STRUCTURE OF RIGHT UPPER LIMB / Unknown Venipuncture / Unknown 01/18/2024 5:40 AM CDT 01/18/2024 6:13 AM CDT Parminder Del Angel MD LAB - BLOOD ORDERABL ES UR LABORATORY [facility] [address] [place] [address], [address] [address], [facility] * Lab Result - HIM Scan (01/15/2024 12:00 AM CDT) 01/15/2024 Provider Outside NON-BEAKER LAB TE STING * MRI Imaging - HIM Scan (01/13/2024 12:00 AM CDT) Anatomical Region Laterality Modality Other 01/13/2024 Provider Outside IMG MRI ORDERABLES * US Imaging - HIM Scan (01/12/2024 12:00 AM CDT) Anatomical Region Laterality Modality Other 01/12/2024 Provider Outside [facility] US ORDERABLES * CT Imaging - HIM Scan (01/07/2024 12:00 AM CDT) Only the most recent of2 resultswithin the time period is included. Anatomical Region Laterality Modality Computed Tomogra phy 01/07/[address] ORDERABLES * CT Vascular - HIM Scan (01/04/2024 12:00 AM CDT) Only the most recent of2 resultswithin the time period is included. Anatomical Region Laterality Modality Computed Tomogra phy 01/04/[address] ORDERABLES * (ABNORMAL) Lipid panel reflex to direct LDL Fasting (07/27/2021 8:57 AM CORPORATE COMPLIANCE OFFICER) Cholesterol 202(H) <200 mg/dL 07/28/2021 10:12 AM CORPORATE COMPLIANCE OFFICER [facility] Triglycerides 91 <150 mg/dL 07/28/2021 10:12 AM CORPORATE COMPLIANCE OFFICER [facility] LAB[facility]ATORY Direct Measure HDL 56 >=50 mg/dL 07/28/2021 10:12 AM CORPORATE COMPLIANCE OFFICER [facility] LAB[facility]ATORY LDL Cholesterol Calculated 128(H) <=100 mg/dL 07/28/2021 10:12 AM CORPORATE COMPLIANCE OFFICER [facility] LAB[facility]ATORY Non HDL Cholesterol 146(H) <130 mg/dL 07/28/2021 10:12 AM CORPORATE COMPLIANCE OFFICER [facility] LABORATORY Patient Fasting > 8hrs? Yes 07/28/2021 10:12 AM CORPORATE COMPLIANCE OFFICER OX LABORATORY Blood STRUCTURE OF RIGHT UPPER LIMB / Unknown Venipuncture / Unknown 07/27/2021 8:57 AM CORPORATE COMPLIANCE OFFICER 07/27/2021 8:57 AM CORPORATE COMPLIANCE OFFICER Narrative OX LABORATORY - 07/28/2021 10:12 AM CORPORATE COMPLIANCE OFFICER Cholesterol Desirable: ??<200 mg/dL Triglycerides Normal: ??Less [...] equal to 220 mg/dL Denise Woodson APRN REAL ESTATE ECONOMIST LAB - BLOOD ORDERABLES OX LABORATORY [facility] [address] Lab (no room number, 1st floor of clinic) [place] [address], [facility] [phone] from Last 3 Months or Most Recently Relevant to Health Maintenance Advance Directives For more information, please contact: [phone] * Full Code (Latest Code Status on File) Date Activated Date Inactivated Comments 01/24/2024 12:40 PM Question Answer Comments Code status determined by: Discussion with patie nt/ legal decision maker * Full Code Date Activated Date Inactivated Comments 01/22/2024 2:45 PM 01/24/2024 12:40 PM All basic an d advanced life-sustaining interventions are performed as appropriate Question Answer Comments Code status determined by: Discussion with patie nt/ legal decision maker * Full Code Date Activated Date Inactivated Comments 01/22/2024 1:09 PM 01/22/2024 2:39 PM Question Answer Comments Code status determined by: Discussion with patie nt/ legal decision maker * Full Code Date Activated Date Inactivated Comments 01/20/2024 12:22 AM 01/22/2024 1:09 PM All basic and advanced life-sustaining interventions are performed as appropriate Question Answer Comments Code status determined by: Discussion with patie nt/ legal decision maker * Full Code Date Activated Date Inactivated Comments 01/17/2024 1:19 PM 01/19/2024 11:16 PM All basic and advanced life-sustaining interventions are performed as appropriate Question Answer Comments Code status determined by: Discussion with patie nt/ legal decision maker Care Teams Material Control Analyst Relationship Specialty Start Date End Date Winston Villatoro OD [facility] [place] [address] [place] [address] PCP - Ophthalmology Ophthalmology 02/11/13 Denise Woodson Ra, APRN REAL ESTATE ECONOMIST [address] [place] [address] PCP - General Family Practice 09/21/20 Denise Woodson Ra, APRN REAL ESTATE ECONOMIST [address] [place] [address] Assigned PCP 07/17/20 Usha Simon APRN REAL ESTATE ECONOMIST [address] [place] [address] [address] Nurse Practitioner Neurological Surgery 01/24/24 Dangelo Salinas MD [address] [place] [address] Neurology 01/27/24
--- OUTSIDE RECORDS SUMMARY | 2024-01-31 12:06 | XMS_ITS | Encounter Summary ---
Author Name Unknown Organization [facility] Address [address] [place] [address]. [place] [address] Care Team Providers Care Single End Sewer Name Role Phone Winston Villatoro OD Unavailable +[phone] Denise Woodson Ra, APRN GRAPHICS ARTIST Unavailable + [phone] Denise Woodson Ra, APRN GRAPHICS ARTIST Primary Care Provid er Usha Simon APRN GRAPHICS ARTIST Unavailable + [phone] Dangelo Salinas MD Unavailable Reason for Visit * Reason Onset Date Comments *-*INCOMING RECORDS*-* 01/31/2024 Encounter Details Date Type Department Care Team ([facility] st Contact Info) Description 01/31/2024 PRE VISIT [facility] [address] [place] [address] Usha Simon APRN [address] [place] [address] *-*INCOMING RECORDS*-* Social History Tobacco Use Types Packs/Day Years [...] encounter Miscellaneous Notes * Telephone Encounter - Sheyla Toth - 01/24/2024 3:53 PM CDT Records Requested January 24, 2024 4:21 PM [id number] [facility] Outcome 4:24 pm Sent request for imaging to be pushed to PACS. -EDITH Toth on 01/29/2024 at 8:28 AM Imaging resolved into PACS. -EDITH Records Requested January 24, 2024 4:21 PM [id number] Facility [facility] 4:25 pm Sent request for imaging to be pushed to PACS. -EDITH Toth on 01/29/2024 at 8:30 AM Sent 2nd request for imaigng. -EDITH Toth on 01/30/2024 at 8:21 AM Called to follow up on imaging request. Staff confirmed that request is currently being processed; they are escalating as Pt's appt tomorrow morning. -EDITH Toth on 01/31/2024 at 8:01 AM Imaging resolved into PACS. -EDITH RECORDS RECEIVED FROM: Care Everywhere REASON FOR VISIT: Cerebrovascular, Dural arteriovenous fistula PROVIDER: Usha Simon APRN CNP DATE OF APPT: 01/31/24 @ 9:30 am NOTES (FOR ALL VISITS) STATUS DETAILS OFFICE NOTE from referring provider Internal Hosp Referral OFFICE NOTE from other specialist Care Everywhere 01/15/24, 01/14/24 Bette Mantilla MD @[facility] 01/14/24 Roshni Molina MD @[facility] DISCHARGE SUMMARY from hospital Internal 01/22/24-Present (as of 01/24/24) Parminder Del Angel MD @[facility] 01/19/24-01/22/24 Jeevan Sheth MD @[facility] EEG Internal [facility] 01/19/24 EEG Videl 2-12 Hrs Unmonitored MEDICATION LIST Internal IMAGING (FOR ALL VISITS) IR PACS Zelaya 01/09/24 IR Angio Carotid Bilat MRI (HEAD, NECK, SPINE) PACS [facility] 01/20/24 MRA Neck (Caroitd) 01/20/24 MR Brain 01/20/24 MRA Brain (COW) [place] 09/28/22 MR Cervical Spine 09/28/[address] (HEAD, NECK, SPINE) PACS [facility] 01/19/24 CT Head Zelaya 01/09/24 CTA Head & Neck Carotid Abbasi 09/27/22 CTA Head Neck 09/25/22 CT Head documented in this encounter Plan of Treatment Upcoming Encounters Date Type Department Care Team (Late st Contact Info) Description 02/03/2024 8:45 AM CDT Therapy Visit [address] [address] Denise Woodson Ra, BUILDING CONSTRUCTION FOREMAN [facility] [address] [place] [address] Addis Rojas, PT [facility] [address] [place], [place] [id number] 02/04/2024 PRE VISIT [facility] Neurology [address] [address] Raul Hoyos MD [address] [place] [id number] *-*INCOMING RECORDS*-* 02/04/2024 11:00 AM CDT Virtual Visit [facility] Neurology [address] [address] Raul Hoyos MD [address] [place] [id number] 02/06/2024 8:30 AM CDT Office Visit [facility] [address] [place] [address] Denise Woodson Ra, BUILDING CONSTRUCTION FOREMAN GRAPHICS ARTIST [address] [facility] [place] [address] 02/07/2024 2:00 PM CDT Therapy Visit [facility] [address] [place] [address] Danya You PA [address] [place] [address] Charis Chacon SLP [facility] [address] [place], [place] [address] 02/14/2024 12:45 PM CDT Therapy Visit [address] [phone] Danya You, AMAIRANI Muller0 [address] [place] [address] Isabel Beaulieu, OTR [facility] [address] [place] [address] 02/14/2024 2:00 PM CDT Therapy Visit [facility] [address] [place] [address] Danya You, PA [address] [place] [address] Charis Chacon, [facility] [address] [place], [place] [address] 02/14/2024 2:45 PM CDT Therapy Visit [address] [phone] Danya You, AMAIRANI [address] [place] [address] [place] [address] Maria Eugenia Nguyen, PT [address] [place] [address] 02/17/2024 2:45 PM CDT Therapy Visit [facility] [address] [place] [phone] Danya You, PA [address] [place] [address] Aliya Kim, LIBRARY SALES CONSULTANT [address] [facility], [facility] [address] [place] [address] 02/19/2024 3:00 PM CDT Therapy Visit [address] [phone] Danya You, PA [address] [place] [address] Isabel Beaulieu, OTJah [address] [address] 02/26/2024 2:15 PM CDT Therapy Visit [address] [phone] Danya You, PA [address] [place] [address] Charis Chacon, [facility] [address] [place] [address] 02/26/2024 3:00 PM CDT Therapy Visit [address] [phone] Danya You, AMAIRANI [address] [place] [address] Isabel Beaulieu, OTR [facility] [address] [facility] [address] 02/27/2024 4:45 PM CDT [facility] [address] [place] [address] Danya You, PA [address] [place], [place] [address] Vanessa Duggan, PT 03/05/2024 1:30 PM CDT Therapy Visit [facility] [address] [place] [phone] Danya You, PA [address] [facility] [address] [place] [address] Isabel Beaulieu, OTR [facility] [address] [place] [address] 03/05/2024 3:15 PM CDT Therapy Visit [facility] [address] [place] [address] Danya You, PA [address] [facility] [address] [place] [address] Charis Chacon, [facility] [address] [place] [address] 03/05/2024 4:15 PM CDT Therapy Visit [facility] [address] [place] [phone] Danya You PA [address] [place] [address] Delicia George, PT [facility] [address] [place] [address] 03/11/2024 2:15 PM CDT Therapy Visit [address] [phone] Danya You, PA [address] [place] [address] Isabel Beaulieu, OTJah [address] [address] 03/11/2024 3:00 PM CDT Therapy Visit [address] [phone] Danya You, PA 2450 [facility] [place] [address] [address] Charis Chacon, [facility] [address] [place] [address] 03/11/2024 4:15 PM CDT Therapy Visit [address] [phone] Danya You, PA [address] [place] [address] Delicia George, PT [facility] [address] [place] [address] 03/17/2024 1:30 PM CDT Therapy Visit [address] [phone] Danya You, AMAIRANI [address] [address] Isabel Beaulieu, OTR [address] [address] 03/17/2024 2:30 PM CDT Therapy Visit [address] [phone] Danya You, PA [address] [place] [address] Charis Chacon, [facility] [address] [place] [address] 03/17/2024 4:00 PM CDT Therapy Visit [address] [phone] Danya You, PA [address] [place] [address] Delicia George, PT [facility] [address] [place] [address] 03/23/2024 10:30 AM CDT Office Visit [facility] [address] [place] [phone] Denise Woodson Ra, BUILDING CONSTRUCTION FOREMAN GRAPHICS ARTIST [address] [place], [place] [phone] 03/26/2024 1:30 PM CDT Therapy Visit [address] [phone] Danya You, AMAIRANI [address] [facility] [address] [address] Isaebl Beaulieu, JAIMIE SHEPPARD [address] [address] 03/26/2024 2:30 PM CDT Therapy Visit [address] [phone] Danya You, AMAIRANI [facility] [address] [address] Charis Chacon, [facility] [address] [place] [address] 03/26/2024 3:30 PM CDT Therapy Visit [address] [phone] Danya You, PA [address] [place] [address] Delicia George, PT [facility] [address] [place] [address] 04/02/2024 2:15 PM CDT Therapy Visit [address] [phone] Danya You PA [address] [place], [place] [address] [address] [address] Isabel Beaulieu, OTR [facility] [address] [place] [address] 04/02/2024 3:15 PM CDT Therapy Visit [facility] [address] [place] [address] Danya You, PA [facility] [address] [address] Charis Chacon, [facility] [address] [place] [address] 04/02/2024 4:15 PM CDT Therapy Visit [address] [phone] Danya You, PA [address] [address] Delicia George, PT [facility] [place] [address] [place] [address] 04/09/2024 3:15 PM CDT Therapy Visit [address] [phone] Danya You, PA 2450 [facility] [address] [place] [address] Charis Chacon, [facility] [address] [place], [place] [address] 04/09/2024 4:15 PM CDT Therapy Visit [address] [phone] Danya You, PA [address] [place] [address] Delicia George, PT [address] [address] 04/15/2024 9:30 AM CDT Therapy Visit [address] [phone] Danya You PA [facility] [address] [place] [address] Danya Restrepo, LIBRARY SALES CONSULTANT 04/23/2024 2:30 PM CDT Therapy Visit [address] [phone] Danya You, PA [address] [place] [address] [address] Charis Chacon, [facility] [address] [place] [address] 06/23/2024 11:00 AM CDT Virtual Visit [facility] Mental Health & Addiction [address] [address] Kristin Vázquez, [facility] [address] [place] [address] 06/30/2024 2:00 PM CDT Virtual Visit [facility] Mental [facility] & [facility] [address]01 [place] [address] Kristin Vázquez, [facility] [address] [place] [address] documented as of this encounter Visit Diagnoses Not on filedocumented in this encounter Additional Health Concerns Assessment Noted Time PHQ-9 Depression Total Score: 0 06/23/20 21 4:11 PM CDT documented as of this encounter Care Teams Single End Sewer Relationship Specialty Start Date End Date Winston Villatoro OD [facility] [place] [address] [place] [address] PCP - Ophthalmology Ophthalmology 02/11/13 Denise Woodson Ra, APRN GRAPHICS ARTIST [address] [place] [address] PCP - General Family Practice 09/21/20 Denise Woodson Ra, APRN GRAPHICS ARTIST [address] [place] [address] Assigned PCP 07/17/20 Usha Simon APRN GRAPHICS ARTIST [address] [facility], [place] [address] Nurse Practitioner Neurological Surgery 01/24/24 Dangelo Salinas MD [address] [place] [address] Neurology 01/27/24 documented as of this encounter
--- OUTSIDE RECORDS SUMMARY | 2024-01-31 12:06 | XMS_ITS | Referral Summary ---
Author Name Unknown Organization [facility] Address [address] [place] [address] Care Team Providers Care Licensed Nuclear Operator Name Role Phone Winston Villatoro OD Unavailable [phone] Denise Woodson Ra, APRN HEARTH FEEDER Unavailable + [phone] Denise Woodson Ra, APRN HEARTH FEEDER Primary Care Provid er Usha Simon APRN HEARTH FEEDER Unavailable + [phone] Dangelo Salinas MD Unavailable Encounters Date Type Department Care Team Description 01/31/2024 PRE VISIT [facility] Neurosurgery [address] [phone] Usha Simon APRN CNP *-*INCOMING RECORDS*-* 01/31/2024 9:30 AM CDT Office Visit [facility] Neurosurgery [address] [phone] Jeevan Sheth MD George, Seena Susan, APRN CNP Dural arteriovenous fistula 01/30/2024 Travel 01/30/2024 MyC Medical Advice [facility] Neurology [address] [phone] Stacey Kelley, GEMA 01/30/2024 Telephone [facility] Neurology [address] [address] Stacey Kelley, GEMA 01/30/2024 11:00 AM CDT Therapy Visit [address] [phone] Danya You, Aliya Luu, SIMBAR Activity of daily living alteration (Primary Dx); Cerebrovascular accident (CVA), unspecified mechanism (H); Alteration in instrumental activities of daily living (IADL) 01/29/2024 MyC Medical Advice [address] [phone] Danya Restrepo, BENCH CHEMIST 01/29/2024 9:30 AM CDT Therapy Visit [address] [phone] Danya You PA Morgan, Lindsay M, BENCH CHEMIST Cerebrovascular accident (CVA), unspecified mechanism (H) 01/28/2024 Travel 01/28/2024 1:15 PM CDT Therapy Visit [address] [phone] Danya You PA Hoyt, Kelly, PT Cerebrovascular accident (CVA), unspecified mechanism (H) 01/27/2024 Travel 01/27/2024 Telephone [facility] Neurology Clinic [address] [phone] None 01/27/2024 MyC Medical Advice [facility] Neurology Clinic [address] [phone] Maria Eugenia [facility] 01/22/2024 2:38 PM CDT - 01/26/2024 12:31 PM CDT Hospital Encounter [facility] Acute Rehabilitation Center [address] [phone] Parminder Del Angel MD Cerebrovascular accident (CVA), unspecified mechanism (H) (Primary Dx); Fibromyalgia; Pain of right upper extremity; Generalized anxiety disorder; History of seizure; Mild recurrent major depression (H24) Discharge Disposition: Home or Self Care 01/25/2024 Travel 01/23/2024 Telephone [facility] Neurology Clinic [place] [address] [facility] [address] 3rd [place] [phone] None Appointment (Referral-Stroke hospital follow up) 01/23/2024 Orders Only [facility] [address] [place] [address] Delisa Manuel MD Dural arteriovenous fistula (Primary Dx) 01/19/2024 11:16 PM CDT - 01/22/2024 2:19 PM CDT Hospital Encounter [facility] Med Surg [address] [place] [phone] Luis Reynolds DO Choudhary, Kriti, MD Traxler, Matthew, MD Fibromyalgia (Primary Dx); Pain of right upper extremity; Nausea; Other constipation; Generalized anxiety disorder; History of stroke; Seizure-like activity (H); History of seizure; Cerebrovascular accident (CVA), unspecified mechanism (H); Dural arteriovenous fistula Discharge Disposition: Acute Rehab Facility 01/21/2024 8:30 AM CDT Ancillary Procedure [facility] EEG [address] [place] [phone] Kev Ansari MD Choudhary, Kriti, MD 01/17/2024 1:09 PM CDT - 01/19/2024 10:07 PM CDT Hospital Encounter [facility] Acute Rehabilitation Center [place] 0[address] [phone] Parminder Del Angel MD Al Lawati, Zainab, [...] (FLONASE) 50 MCG/ACT nasal sprayIndications: Chronic rhinitis [place] 2 sprays into both nostrils daily 16 g 3 9 024 Discontinued(Me d Rec(No AVS / No eCancel)) aspirin (ASA) 325 MG EC tablet Take 325 mg by mouth daily Discontinued levETIRAcetam (KEPPRA) 750 MG tablet Take 750 mg by mouth 2 times daily Discontinued magnesium oxide 200 MG TABS Take 200 mg by mouth at bedtime Discontinued rosuvastatin (CRESTOR) 20 MG tablet Take 20 mg by mouth at bedtime Discontinued acetaminophen (TYLENOL) 325 MG tabletIndications :Fibromyalgia,Tony n of right upper extremity Take 3 tablets (975 mg) by mouth 3 times daily 4 024 Discontinued celecoxib (CELEBREX) 100 MG capsuleIndication s:Fibromyalgia,Pa in of right upper extremity Take 1 capsule (100 mg) by mouth 2 times daily 024 Discontinued(St op at Discharge) diclofenac (VOLTAREN) 1 % topical gelIndications:Fi bromyalgia,Pain of right upper extremity Apply 2 g topically 4 times daily as needed for moderate pain Discontinued(St op at Discharge) hydrOXYzine HCl (ATARAX) 50 MG tabletIndications :Generalized anxiety disorder Take 1 tablet (50 mg) by mouth nightly as needed for anxiety Discontinued oxyCODONE (ROXICODONE) 5 MG tabletIndications :Fibromyalgia,Tony n of right upper extremity Take 1 tablet (5 mg) by mouth every 6 hours as needed for severe pain (If pain not controlled with other pain modalities) Discontinued(St op at Discharge) ondansetron (ZOFRAN ODT) 4 MG ODT tabIndications:Na usea Take 1 tablet (4 mg) by mouth every 6 hours as needed for nausea or vomiting 024 Discontinued(St op at Discharge) enoxaparin ANTICOAGULANT (LOVENOX) 40 MG/0.4ML syringeIndication s:History of stroke Inject 0.4 mLs (40 mg) Subcutaneous every 24 hours . Start 5/8 PM Discontinued(St op at Discharge) Active Problems Problem [...] PF 04/2021,07/27/2020,06/15/2019,2016 [place]oux Tuberculin Skin Test 11/07/2011,10/08/19 23 valent 03/16/2004 TD,PF 7+ (Tenivac) 04/05/2003 [...] Description 02/03/2024 8:45 AM CDT Therapy Visit [address] [phone] Denise Woodson Ra, PEN OR PENCIL ASSEMBLY MACHINE OPERATOR HEARTH FEEDER [address] [facility] [place] [address] Addis Rojas, PT [facility] [address] [place] [address] 02/04/2024 PRE VISIT [facility] Neurology [address] [phone] Raul Hoyos MD [address] [place] [address] *-*INCOMING RECORDS*-* 02/04/2024 11:00 AM CDT Virtual Visit [facility] Neurology [address] [phone] Raul Hoyos MD [address] [place] [address] 02/06/2024 8:30 AM CDT Office Visit [facility] [address] [place] [phone] Denise Woodson Ra, PEN OR PENCIL ASSEMBLY MACHINE OPERATOR HEARTH FEEDER [address] [facility] [place] [address] 02/07/2024 2:00 PM CDT Therapy Visit [address] [phone] Danya You PA [address] [place] [address] Charis Chacon, J[facility] [address] [place] [address] 02/14/2024 12:45 PM CDT Therapy Visit [facility] [address] [place] [phone] Danya You, PA [address] [place] [address] [place] [address] Isabel Beaulieu OTR [facility] [address] [place] [address] 02/14/2024 2:00 PM CDT Therapy Visit [facility] [address] [place] [phone] Danya You, AMAIRANI [address] [facility] CHARLES [address] [place] [phone] Charis Chacon, JUAN [facility] [address] [place] [address] 02/14/2024 2:45 PM CDT Therapy Visit [facility] [address] [place] [phone] Danya You, PA [address] [place], [place] [address] Maria Eugenia Nguyen, PT [address] [place] [address] 02/17/2024 2:45 PM CDT Therapy Visit [facility] [address] [place] [phone] Danya You PA [address] [place] [address] Aliya Kim, BENCH CHEMIST [address] [facility], [address] [place] [address] 02/19/2024 3:00 PM CDT [facility] [address] [place] [phone] Danya You, AMAIRANI [address] [address] Isabel Beaulieu OTR [facility] [address] [place] [address] 02/26/2024 2:15 PM CDT [facility] [address] [place] [phone] Danya You, AMAIRANI [address] [place] [address] Charis Chacon, [facility] [address] [place] [address] 02/26/2024 3:00 PM CDT [facility] [address] [place] [phone] Danya You, AMAIRANI [address] [facility] [address] [place] [address] Isabel Beaulieu OTR [facility] [address] [facility] [place] [address] 02/27/2024 4:45 PM CDT Therapy Visit [facility] [address] [place] [phone] Danya You PA [address] [place] [address] Vanessa Duggan, PT 03/05/2024 1:30 PM CDT Therapy Visit [facility] [address] [place] [address] Danya You, AMAIRANI [address] [place] [address]35964 Isabel Beaulieu OTR [address] [address] 03/05/2024 3:15 PM CDT Therapy Visit [address] [phone] Danya You, AMAIRANI [address] [address] Charis Chacon, [facility] [address] [place] [address] 03/05/2024 4:15 PM CDT Therapy Visit [address] [phone] Danya You, AMAIRANI [address] [place] [address] Delicia George, PT [facility] [address] [address] 03/11/2024 2:15 PM CDT Therapy Visit [address] [phone] Danya You, AMAIRANI [address] [place] [address] Isabel Beaulieu, OTJah [address] [address] 03/11/2024 3:00 PM CDT Therapy Visit [address] [phone] Danya You, AMAIRANI [address] [place] [address] Charis Chacon, [facility] [address] [place] [address] 03/11/2024 4:15 PM CDT Therapy Visit [address] [phone] Danya You, PA [address] [place] [address] Delicia George, PT [facility] [address] [place] [address] 03/17/2024 1:30 PM CDT Therapy Visit [address] [phone] Danya You PA [address] [place] [address] Isabel Beaulieu, OTR [address] [address] 03/17/2024 2:30 PM CDT Therapy Visit [address] [phone] Danya You, PA [address] [facility] [address] [address] Charis Chacon, [facility] [address] [place] [address] 03/17/2024 4:00 PM CDT Therapy Visit [address] [phone] Danya You, PA [address] [facility] [address] [address] Delicia George, PT [facility] [address] [place] [address] 03/23/2024 10:30 AM CDT Office Visit [facility] [address] [place] [phone] Denise Woodson Ra, PEN OR PENCIL ASSEMBLY MACHINE OPERATOR [facility] [address] [place], [place] [address] 03/26/2024 1:30 PM CDT Therapy Visit [address] [phone] Danya You, PA [address] 684[address] Isabel Beaulieu, OTR [facility] 150 [facility] [place] [address] 03/26/2024 2:30 PM CDT Therapy [facility] 150 [facility] [place] [phone] Danya You, AMAIRANI [address] [address] Charis Chacon, [facility] [address] [place] [address] 03/26/2024 3:30 PM CDT Therapy Visit [address] [phone] Danya You, PA [address] [address] Delicia George, PT [facility] [address] [place] [address] 04/02/2024 2:15 PM CDT Therapy [facility] [address] [place] [phone] Danya You, PA [address] [facility] [address] [place] [address] Isabel Beaulieu, OTR [facility] [address] [place] [address] 04/02/2024 3:15 PM CDT Therapy [facility] [address] [place] [phone] Danya You PA [address] [place] [address] Charis Chacon SLP [facility] [address] [place] [address] 04/02/2024 4:15 PM CDT Therapy Visit [address] [phone] Danya You, AMAIRANI [address] [address] Delicia George, PT [address] [address] 04/09/2024 3:15 PM CDT Therapy Visit [address] [address] Danya You PA [address] [address] Charis Chacon, J[facility] [address] [place] [address] 04/09/2024 4:15 PM CDT Therapy Visit [address] [phone] Danya You, PA [address] [place] [address] Delicia George, PT [address] [address] 04/15/2024 9:30 AM CDT Therapy Visit [facility] [address] [place] [phone] Danya You, PA [address] [place] [address] [place] [address] Danya Restrepo SLP 04/23/2024 2:30 PM CDT Therapy Visit [facility] [address] [place] [phone] Danya You, PA [address] [place], [place] [address] Charis Chacon, J[facility]AN [facility] [address] [place] [address] 06/23/2024 11:00 AM CDT Virtual Visit [facility] Mental Health & Addiction [facility] [address] [place] [address] Kristin Vázquez, [facility] [address] [place] [address] 06/30/2024 2:00 PM CDT Virtual Visit [facility] Mental Health & Addiction [facility] [address] [place] [address] Kristin Vázquez, [facility] [address] [place] [address] Procedures Procedure Name Priority Date/Time Associated Diagnosis [...] STAT 01/20/2024 6:53 PM CDT MRA BRAIN ([facility]) W/O CONTRAST STAT 01/20/2024 6:50 [...] AM CDT MRI IMAGING - HIM SCAN 4 12:00 AM CDT US IMAGING - HIM SCAN 01/12/2024 12:[address] IMAGING - HIM SCAN 01/07/2024 12:[address] VASCULAR - HIM SCAN 4 12:[address] VASCULAR - HIM SCAN 4 12:[address] IMAGING - HIM SCAN 01/04/2024 12:00 AM CDT MA SCREENING BILATERAL W/ FLO Routine 07/30/2023 2:38 PM CHRONIC DISEASE MANAGER LIPID REFLEX TO DIRECT LDL PANEL Routine 07/27/2021 8:57 AM CHRONIC DISEASE MANAGER CARDIOVASCULAR SCREENING; LDL GOAL LESS THAN 160 [...] [facility] Lupus Result Negative Negative 2:25 PM CDT [facility] Lupus Interpretation The INR is normal. APTT ratio is normal. ?? DRVVT Screen ratio is normal. Thrombin time is normal. NEGATIVE TEST; A LUPUS ANTICOAGULANT WAS NOT DETECTED IN THIS SPECIMEN WITHIN THE LIMITS OF THE TESTING REPERTOIRE. If the clinical picture is strongly suggestive of an antiphospholipid syndrome, recommend anticardiolipin and hcix-6-altyjxrkwwr n (IgG and IgM) antibody tests. Mikayla Cooper MD, PhD [facility] 2:25 PM CDT [facility] Blood STRUCTURE OF RIGHT HAND / Unknown Venipuncture / Unknown 01/21/2024 1:20 PM CDT 01/21/2024 1:26 PM CDT Airam Jay MD LAB - BLOOD ORDERABL ES [facility] Coagulation [address] [facility] [address] Building, Room [address] [place] [address], [facility] * Factor 2 assay (01/21/2024 1:20 PM CDT) Factor 2 Assay 131 60 - 140 % 01/22/2024 9:53 AM CDT [facility] Comment: The Factor 2 activity level is not a screening test for the Prothrombin 596[address] mutation. Blood STRUCTURE OF RIGHT HAND / Unknown Venipuncture / Unknown 01/21/2024 1:20 PM CDT 01/21/2024 1:26 PM CDT Airam Jay MD LAB - BLOOD ORDERABL ES [facility] CO[facility]UL[facility] Coagulation [address] [facility] Unit Building, Room [address] [address] * EEG Video 2-12 HRS Ummonitored (01/21/2024 12:15 PM CDT) Narrative [facility] - 01/21/2024 3:06 PM CDT EEG Video 2-12 HRS Ummonitored Result VIDEO EEG DATE: 01/21/2024 VIDEO EEG [id number] VIDEO EEG DAY#: 1 VIDEO EEG SOURCE [...] [facility] [address] [facility], [address] [place] [address] * Cardiolipin Fariba IgG and IgM (01/21/2024 [...] - BLOOD ORDERABL ES UM SPECIALTY CORE/PROT/ENDO UM Specialty Core/Prot/Endo [address], Room [address] * Basic metabolic panel (01/21/2024 5:51 [...] [facility] [address] [facility], [address] [place] [address], [facility] * MRA Neck (Carotids) wo & [...] findings. ANA LATHAM MD Airam Jay MD [facility] MRI ORDERABLES * MR Brain w/o & [...] findings. ANA LATHAM MD Airam Jay MD [facility] MRI ORDERABLES * MRA Brain ([facility]) wo Contrast (01/20/2024 6:50 PM CDT) Anatomical Region Laterality Modality Head, SUBRAD MR NEURO, UMP MR NEURO, RAD MR Magnetic Resonance Impressions 01/20/2024 7:49 PM CDT IMPRESSION: No intracranial arterial aneurysm or stenosis. I have personally reviewed the examination and initial interpretation and I agree with the findings. 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 Outside CTA report for 01/09/2024 obtained through Care Everywhere. 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 Outside CTA report for 01/09/2024 obtained through Care Everywhere. TECHNIQUE: Using a 3D hoti-ly-itayrq image acquisition technique, MRA of the major [...] findings. ANA LATHAM MD Airam Jay MD [facility] MRI ORDERABLES * Troponin T, High Sensitivity (01/19/2024 11:55 PM CDT) [facility] Troponin T, High Sensitivity <6 <=14 ng/L [...] DO LAB - BLOOD ORDERABLES UR LABORATORY [facility] Acute Care Lab [address] [place] [address], Room [address] [address] * Lactic acid whole blood (01/19/2024 11:55 PM CDT) Lactic Acid 1.1 0.7 - 2.0 mmol/L 01/20/2024 12:03 AM CDT UR LABORATORY Blood STRUCTURE OF RIGHT UPPER LIMB / Unknown Venipuncture / Unknown 01/19/2024 11:55 PM CDT 01/20/2024 12:01 AM CDT Len Camejo DO LAB - BLOOD ORDERABLES Performing Organization Address City/[facility]/ZIP Co de Phone Number UR LABORATORY [facility] Acute Care Lab [address] [place] [address], Room [address] [phone] * Extra Purple Top Tube (01/19/2024 11:54 PM CDT) Hold Specimen JIC 01/20/2024 1:04 AM CDT UR LABORATORY Blood BLOOD SPECIMEN / Unknown Venipuncture / Unknown 01/19/2024 11:54 PM CDT 01/20/2024 12:03 AM CDT Luis Reynolds DO LAB - BLOOD ORDERABL ES Performing Organization Address City/[facility]/ZIP Co de Phone Number UR LABORATORY [facility] Acute Care Lab [address] [place] [address], Room [address] [address], [facility] * CT Head w/o Contrast (01/19/2024 [...] the vertex were obtained without intravenous contrast. [employer] Former Supervisor (topogram) image(s) also obtained and reviewed. FINDINGS: [...] the vertex were obtained without intravenous contrast. [employer] Former Supervisor (topogram) image(s) also obtained and reviewed. FINDINGS: [...] RESULTS QTc 441 ms RADIOLOGY RESULTS P Otis 30 degrees RADIOLOGY RESULTS R AXIS 36 degrees RADIOLOGY RESULTS T Otis -13 degrees RADIOLOGY RESULTS Interpretation ECG Sinus rhythm with frequent Premature ventricular complexes Abnormal ECG No previous ECGs available Confirmed by MD MAN JANE ([id number]) on 01/20/2024 9:02:28 AM RADIOLOGY RESULTS 01/19/2024 10:3 3 PM CDT 01/20/2024 9:02 AM CDT Randy Kwon APRN HEARTH FEEDER ECG ORDERABLES RADIOLOGY RESULTS * INR (01/19/2024 9:33 PM CDT) INR 0.87 0.85 - 1.15 01/19/2024 10:17 PM CDT UR LABORATORY Blood BLOOD SPECIMEN / Unknown Venipuncture / Unknown 01/19/2024 9:33 PM CDT 01/19/2024 9:54 PM CDT Randy Kwon APRN, CNP LAB - BLOOD ORDER NASRIN UR LABORATORY [facility] Acute Care Lab [address] [facility], [address] [place] [address] * Prolactin (01/19/2024 9:33 PM CDT) Prolactin 22 5 - 23 ng/mL 01/19/2024 11:23 PM CDT UU LABORATORY Blood BLOOD SPECIMEN / Unknown Venipuncture / Unknown 01/19/2024 9:33 PM CDT 01/19/2024 9:54 PM CDT Randy Kwon APRN, CNP LAB - BLOOD ORDER NASRIN UU LABORATORY [facility] [place] [facility] Lab [address] [facility], Room [address] [place] [address] * Partial thromboplastin time (01/19/2024 9:33 PM CDT) aPTT 25 22 - 38 Seconds 01/19/2024 10:18 PM CDT UR LABORATORY Blood BLOOD SPECIMEN / Unknown Venipuncture / Unknown 01/19/2024 9:33 PM CDT 01/19/2024 9:54 PM CDT Randy Kwon APRN, CNP LAB - BLOOD ORDER NASRIN UR LABORATORY [facility] Acute Care Lab [facility], [address] [place] [address] * Fibrinogen activity (01/19/2024 9:33 PM CDT) Fibrinogen Activity 417 170 - 490 mg/dL 01/19/2024 10:18 PM CDT UR LABORATORY Blood BLOOD SPECIMEN / Unknown Venipuncture / Unknown 01/19/2024 9:33 PM CDT 01/19/2024 9:54 PM CDT Randy Kwon APRN, CNP LAB - BLOOD ORDER NASRIN UR LABORATORY [facility] Acute Care Lab [address] [place] [address], Room [address] [address], [facility] * Extra Green Top (Estelle Heparin) Tube (01/18/2024 5:40 AM CDT) Hold Specimen JIC 01/18/2024 7:32 AM CDT UR LABORATORY Blood STRUCTURE OF RIGHT UPPER LIMB / Unknown Venipuncture / Unknown 01/18/2024 5:40 AM CDT 01/18/2024 6:18 AM CDT Parminder Del Angel MD LAB - BLOOD ORDERABL ES UR LABORATORY [facility] Care Lab [facility], Room [address] [address] * Platelet count - Routine (01/18/2024 5:40 AM CDT) Platelet Count 217 150 - 450 10e3/uL 01/18/2024 6:15 AM CDT UR LABORATORY Blood STRUCTURE OF RIGHT UPPER LIMB / Unknown Venipuncture / Unknown 01/18/2024 5:40 AM CDT 01/18/2024 6:13 AM CDT Parminder Del Angel MD LAB - BLOOD ORDERABL ES Performing Organization Address City/[facility]/ZIP Co de Phone Number UR LABORATORY [facility] Lab [address] [place] [address], Room [address] [phone] * Lab Result - HIM Scan (01/15/2024 12:00 AM CDT) 01/15/2024 Provider Outside MH NON-BEAKER LAB TE STING * MRI Imaging - HIM Scan (01/13/2024 12:00 AM CDT) Anatomical Region Laterality Modality Other 01/13/2024 Provider Outside IMG MRI ORDERABLES * US Imaging - HIM Scan (01/12/2024 12:00 AM CDT) Anatomical Region Laterality Modality Other 01/12/2024 Provider Outside IMG US ORDERABLES * CT Imaging - HIM [...] to direct LDL Fasting (07/27/2021 8:57 AM CHRONIC DISEASE MANAGER) Cholesterol 202(H) <200 mg/dL 07/28/2021 10:12 AM CHRONIC DISEASE MANAGER OX LABORATORY Triglycerides 91 <150 mg/dL 07/28/2021 10:12 AM CHRONIC DISEASE MANAGER OX LABORATORY Direct Measure HDL 56 >=50 mg/dL 07/28/2021 10:12 AM CHRONIC DISEASE MANAGER OX LABORATORY LDL Cholesterol Calculated 128(H) <=100 mg/dL 07/28/2021 10:12 AM CHRONIC DISEASE MANAGER [facility]X LABORATORY Non HDL Cholesterol 146(H) <130 mg/dL 07/28/2021 10:12 AM CHRONIC DISEASE MANAGER OX LABORATORY Patient Fasting > 8hrs? Yes 07/28/2021 10:12 AM CHRONIC DISEASE MANAGER [facility]X LABORATORY Blood STRUCTURE OF RIGHT UPPER LIMB / Unknown Venipuncture / Unknown 07/27/2021 8:57 AM CHRONIC DISEASE MANAGER 07/27/2021 8:57 AM CHRONIC DISEASE MANAGER Narrative OX LABORATORY - 07/28/2021 10:12 AM CHRONIC DISEASE MANAGER Cholesterol Desirable: ??<200 mg/dL Triglycerides Normal: ??Less [...] equal to 220 mg/dL Denise Woodson APRN HEARTH FEEDER LAB - BLOOD ORDERABLES OX [facility] [address] Lab (no room number, 1st floor of clinic) [place] [address], [facility] [phone] from Last 3 Months or Most Recently Relevant to Health Maintenance Advance Directives For more information, please contact: [phone] * Full Code (Latest Code Status on [...] patie nt/ legal decision maker Care Teams Licensed Nuclear Operator Relationship Specialty Start Date End Date Winston Villatoro OD [facility] [place] [address] [place] [address] PCP - Ophthalmology Ophthalmology 02/11/13 Denise Woodson Ra, APRN HEARTH FEEDER [address] [address] [id number] PCP - General Family Practice 09/21/20 Denise Woodson Ra, APRN HEARTH FEEDER [address] [address] [id number] Assigned PCP 07/17/20 Usha Simon APRN HEARTH FEEDER [address] [facility] [id number] [place] [address] Nurse Practitioner Neurological Surgery 01/24/24 Dangelo Salinas MD [address] [place] [address] Neurology 01/27/24
--- OUTSIDE RECORDS SUMMARY | 2024-01-31 12:07 | XMS_ITS | Encounter Summary ---
Author Name Unknown Organization [place] Address [address] [place] [address] Care Team Providers Care Windrower Operator Name Role Phone Winston Villatoro OD Unavailable [phone] Denise Woodson Ra, APRN SOFTWARE LEAD Unavailable [phone] Denise Woodson Ra, APRN SOFTWARE LEAD Primary Care Provid er Usha Simon APRN SOFTWARE LEAD Unavailable [phone]- [phone] Dangelo Salinas MD Unavailable Reason for Visit * Rehab Therapy Integrated Services (Routine) - Authorized Specialty Diagnoses / Procedures Referred By Nila shah Referred To Contact Diagnoses Cerebrovascular accident (CVA), unspecified mechanism (H) [address] [address] Referral ID Status Reason Start Date Expiration Date V isits Requested Visits Authorized [id number] Authorized 09/16/2023 09/15/2024 365 365 Encounter Details Date Type Department Care Team (Late st Contact Info) Description 01/30/2024 11:00 AM CDT Therapy Visit [address] [phone] Danya You, PA [address] [place] [address] Aliya Reese, OTR [address] [place] [address] Activity of daily living alteration (Primary Dx); Cerebrovascular accident (CVA), unspecified mechanism (H); Alteration in instrumental activities of daily living (IADL) Social History Tobacco Use Types Packs/Day Years [...] as of this encounter Progress Notes * Aliya Reese OTJah - 01/30/2024 11:00 AM CDT OCCUPATIONAL THERAPY EVALUATION Type of Visit: Evaluation See electronic medical record for Abuse and Falls Screening details. Subjective Presenting condition or subjective complaint: patient reported that things seem to be coming back slowly Date of onset: 01/26/24 Relevant medical history: Past Medical History: Diagnosis Date Acute posthemorrhagic [...] twin sister Stroke (H) 01/17/2024 Uncomplicated asthma Dates & types of surgery: Prior diagnostic imaging/testing results: MRI; CT scan Prior therapy history for the same diagnosis, illness or injury: Yes Acute stroke rehab Prior Level of Function Transfers: Independent Ambulation: Independent ADL: Independent IADL: Driving, Finances, Housekeeping, Laundry, Meal preparation, Medication management, Work, Yardwork Living Environment Social support: With a significant other or spouse Type of home: House; Multi-level Stairs to enter the home: Yes 2 Is there a railing: No Ramp: No Stairs inside the home: Yes 36 Is there a railing: Yes Help at home: None Equipment owned: walker, tub clamp 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 Feelsher memory is improving. Working on brain activity based tasks. Pt would also like to return to driving-this is a #1 goal for her so she doesn't have to rely on others for appointments. Pain assessment: Pain denied Objective Cognitive Status Examination Defer to OFFICE SERVICES ASSOCIATE examination/assessment. Will further assess as clinically indicated/necessary VISUAL SKILLS Visual Acuity: Wears glasses, bifocals a year ago Visual Field: 70 degrees of peripheral vision B Visual Attention: Appears normal Oculomotor: Very minimal abnormality with diagonal smooth pursuits Pt will be following up with eye doc Convergence: diplopia with convergence SENSATION: LE Sensation WNL, intermittent tingling/numbness R UE POSTURE: WFL RANGE OF MOTION: UE AROM WNL STRENGTH: MMT indicates 5/5 muscle strength B Pain: - none + mild ++ moderate +++ severe Strength Scale: 0-5/5 Left Right Gas Fitter Helper Strength (lbs) 65 (WNL) 61 (WNL) Hand Dominance: Right MUSCLE TONE: WFL COORDINATION: Left Hand, Nine Hole Peg Test (sec): 17 Right Hand, Nine Hole Peg Test (sec): 19 Pt reports handwriting has changed a bit since stroke but is slowly improving. Due to noticing somefunctional difference will address FM HEP to maximize functional independence. BALANCE: defer to PT assessment FUNCTIONAL MOBILITY Assistive Device(s): brought walker home and used on Saturday but hasn't used since BED MOBILITY: Independent TRANSFERS: Independent BATHING: completed 1x AK with showering Equipment: tub clamp (has a deep bath tub), planning to set up long handled shower head and bath mat; shower takes a little more time and energy than previously UPPER BODY DRESSING: Independent LOWER BODY DRESSING: Independent TOILETING: Independent GROOMING: Independent EATING/SELF FEEDING: Independent ACTIVITY TOLERANCE: Pt reports getting tired more quickly but that is continuing to improve as well-is better than a week ago. Pt reports yesterday was the first day she didn't need to take a nap. She didn't sleep at all in the hospital or ARU but this has been getting better. INSTRUMENTAL ACTIVITIES OF DAILY LIVING (IADL): Meal Planning/Prep: enjoys baking-planning to try making belgian toast this weekend; spouse usually does most of the cooking Home/Executive Steward: Pt has done laundry (2 loads)-decreased energy for completing tasks; does some yard maintenance/picking up after dogs; uses a push mower usually but hasn't done yet; did some banking (had charge she didn't make and was able to call bank and take care of it) Communication/Computer Use: I with laptop and phone use Community Mobility: not currently driving but would like to return to this Care of Others:- Pt has 3 dogs (black lab, icelandic richardson, and small dog and 2 cats); feeds dogs I'ly, spouse feeds cats Assessment & Plan CLINICAL IMPRESSIONS Medical Diagnosis: Cerebrovascular accident (CVA), unspecified mechanism (H) Treatment Diagnosis: Activity of daily living alteration; Alteration in instrumental activities of dailyi living Impression/Assessment: Pt is a 48 yo f referred to OP occupational therapy after discharging home from ARU where she was admitted 01/22/24 - 01/26/24. Pt hospitalized following a cerebral infarct of thefrontal lobes, parietal lobes, left supramarginal gyrus; embolic in nature, likely procedural complication. Pt presented with R sided numbness, weakness, headaches. PMH includes Lizy-Danlos syndrome, mild persistent asthma, anxiety and depression, and fibromyalgia. Pt presented for planned catheter angiogram at [facility] for left sided pulsatile tinnitus, following procedure found tohave multiple acute ischemic infarcts as listed above and c/b post stroke seizures. OT also notes visual concerns such as abnormal horizontal smooth pursuits, diplopia with convergence, and concern forpotential peripheral vision issues. Pt reports movement in peripheral vision was causing dizziness but now this is already improving. At time of session pt presents with deficits in activity tolerance and visual changes. Clinical Decision Making (Complexity): Assessment of Occupational Performance: 1-3 Performance Deficits Occupational Performance Limitations: driving and community mobility, home establishment and management, and work Clinical Decision Making (Complexity): Low complexity PLAN OF CARE Treatment Interventions: Interventions: Community/Work Reintegration, Self-Care/Home Management, Therapeutic Activity, Therapeutic Exercise Quiller Tender Goals OT Goal 1 Goal Identifier: community mobility Goal Description: Pt participates in community mobility assessment items to screen for functional cognition and visuo-spatial reasoning/way finding including: cognitive screen (e.g. SBT, MoCA), SDMT,BiVaba Scan Course, Thompsons Making, Dynavision (all modes), foot tap measure, sign recognition etc. and demonstrates understanding of results and recommendations for further assessment/testing if indicated. Rationale: In order to maximize safety and independence with cognitive function within the home or community Target Date: 04/28/24 OT Goal 2 Goal Identifier: fatigue management Goal Description: Pt will demonstrate at least 3 energy conservation strategies (e.g. pacing, planning, prioritizing, sleep hygiene, etc.) to facilitate improved fatigue management with ADL/IADL tasks (e.g. laundry, building/handiwork, meal preparation, walking/exercise) as measured by improved FACIT of at least 10 points. Rationale: In order to maximize safety and independence with ADL/IADLs Target Date: 04/28/24 OT Goal 3 Goal Identifier: FM hep Goal Description: Pt will I'ly complete FM HEP to maximize functional independence with handwriting, typing, tying, completing meal prep tasks etc. Rationale: In order to maximize safety and independence with ADL/IADLs Target Date: 04/28/24 Frequency of Treatment: 1x/week Duration of Treatment: up to 90 days Recommended Referrals to Other Professionals: no additional referrals indicated; pt currently beingseen by OFFICE SERVICES ASSOCIATE and PT in addition to OT Education Assessment: Learner/Method: Patient Education Comments: Educated on role/scope of OT and POC/goals Risks and benefits of evaluation/treatment have been explained. Patient/Family/caregiver agrees with Plan of Care. Evaluation Time: Signing Clinician: JAIMIE Argueta documented in this encounter Plan of Treatment Upcoming Encounters Date Type Department Care Team (Late st Contact Info) Description 02/03/2024 8:45 AM CDT Therapy Visit [address] [phone] Denise Woodson Ra, BEEF GRINDER SOFTWARE LEAD [address] [place] [address] Addis Rojas, PT [facility] [address] [place], [place] [id number] 02/04/2024 PRE VISIT [facility] Neurology Clinic [address] [phone] Raul Hoyos MD [address] [place] [id number] *-*INCOMING RECORDS*-* 02/04/2024 11:00 AM CDT Virtual Visit [facility] Neurology [address] [address] Raul Hoyos MD [address] [place] [id number] 02/06/2024 8:30 AM CDT Office Visit [facility] [address] [place] [phone] Denise Woodson Ra, BEEF GRINDER SOFTWARE LEAD [address] [place] [address] 02/07/2024 2:00 PM CDT Therapy Visit [facility] Rehabilitation Services [address] [phone] Danya You, AMAIRANI [facility] [address] [place] [address] Charis Chacon, OFFICE SERVICES ASSOCIATE [facility] [address] [place], [place] [address] 02/14/2024 12:45 PM CDT Therapy Visit [address] [phone] Danya You, PA 2450 [facility] [address] [place] [address] Isabel Beaulieu, OTR [address] [address] 02/14/2024 2:00 PM CDT Therapy Visit [address] [phone] Danya You, PA 2190 [facility] 213 [place], [place] [phone] Charis Chacon, JUAN [facility] [address] [place] [address] 02/14/2024 2:45 PM CDT Therapy Visit [address] [phone] Danya You, PA 2450 [facility] [address] [place], [place] [address] Maria Eugenia Nguyen, PT 2155 [place] [address] 02/17/2024 2:45 PM CDT Therapy Visit [address] [phone] Danya You, PA 2450 [facility] 213 [place] [address] Aliya Kim, OFFICE SERVICES ASSOCIATE [address] [address] 02/19/2024 3:00 PM CDT Therapy Visit [facility] 150 [place] [phone] Danya You PA [address]50 [address] [place] [address] Isabel Beaulieu, OTR [facility] 150 [place] [address] 02/26/2024 2:15 PM CDT Therapy Visit [address] [phone] Danya You, AMAIRANI 2450 [facility] [address] [place] [address] Charis Chacon, [facility] [address] [place] [address] 02/26/2024 3:00 PM CDT Therapy Visit [address] [phone] Danya You, PA [address] [address] Isabel Beaulieu, OTR [facility] 150 [place] [address] 02/27/2024 4:45 PM CDT Therapy Visit [facility] 150 [place] [phone] Danya You, AMAIRANI 2450 [facility] JIE S[address] [place] [address] Vanessa Duggan, PT 03/05/2024 1:30 PM CDT Therapy Visit [address] [phone] Danya You, AMAIRANI [address] [place] [address] [id number] Isabel Beaulieu, OTR [address] [address] 03/05/2024 3:15 PM CDT Therapy Visit [address] [phone] Danya You, PA 2100 [facility] [address] [phone] Charis Chacon, OFFICE SERVICES ASSOCIATE [facility] [address] [place] [address] 03/05/2024 4:15 PM CDT Therapy Visit [address] [phone] Danya You, PA [address] [place] [id number] Delicia George, PT [facility] [address] [place] [address] 03/11/2024 2:15 PM CDT Therapy Visit [address] [phone] Danya You, PA [address] 257[address] Isabel Beaulieu, OTR [facility] [address] [place] [address] 03/11/2024 3:00 PM CDT Therapy Visit [facility] [address] [place] [phone] Danya You, PA [address] [address] Charis Chacon, [facility] [address] [place] [address] 03/11/2024 4:15 PM CDT Therapy Visit [address] [phone] Danya You, PA [address] [address] Delicia George, PT [facility] [address] [place] [address] 03/17/2024 1:30 PM CDT Therapy Visit [facility] [address] [place] [phone] Danya You, PA [address] [address] Isabel Beaulieu, OTR [facility] [address] [place] [address] 03/17/2024 2:30 PM CDT [facility] [address] [place] [phone] Danya You, PA [address] [address] Charis Chacon SLP [facility] [address] [place] [address] 03/17/2024 4:00 PM CDT Therapy Visit [address] [phone] Danya You, PA [address] 308[address] Delicia George, PT [facility] [address] [place] [address] 03/23/2024 10:30 AM CDT Office Visit [facility] [address] [place] [address] Denise Woodson Ra, BEEF GRINDER SOFTWARE LEAD [address] [place], [place] [phone] 03/26/2024 1:30 PM CDT Therapy Visit [address] [phone] Danya You, AMAIRANI [address] [place] [address] Isabel Beaulieu OTR [address] [address] 03/26/2024 2:30 PM CDT Therapy Visit [address] [phone] Danya You PA [address] [place] [address] Charis Chacon SLP [facility] [address] [place] [address] 03/26/2024 3:30 PM CDT Therapy Visit [facility] [address] [place] [phone] Danya You, PA 2450 [facility] JIE [address] [place] [address] Delicia George, PT [facility] SURGERY [address] [address] 04/02/2024 2:15 PM CDT Therapy Visit [facility] 150 [place] [phone] Danya You, PA [address] [place] [address] Isabel Beaulieu, OTR [facility] 150 [place] [address] 04/02/2024 3:15 PM CDT Therapy Visit [facility] [address] [place] [phone] Danya You, PA 2450 [facility] JEI S[address] [place] [address] Charis Chacon, JUAN [facility] [address] [place] [address] 04/02/2024 4:15 PM CDT Therapy Visit [address] [phone] Danya You PA [address] [address] Delicia George, PT [address] [address] 04/09/2024 3:15 PM CDT Therapy Visit [address] [phone] Danya You, AMAIRANI [facility] [address] [address] Charis Chacon, [facility] [address] [place] [address] 04/09/2024 4:15 PM CDT Therapy Visit [address] [phone] Danya You, PA [facility] [address] [address] Delicia George, PT [address] [address] 04/15/2024 9:30 AM CDT Therapy Visit [address] [phone] Danya You, PA [address] [address] Danya Restrepo, OFFICE SERVICES ASSOCIATE 04/23/2024 2:30 PM CDT Therapy Visit [facility] Rehabilitation Services [facility] [address] [place] [phone] Danya You, PA 2450 [facility] [address] [place] [address] Charis Chacon, JUAN [facility] [address] [place] [address] 06/23/2024 11:00 AM CDT Virtual Visit [facility] Mental Health & Addiction [facility] [address] [place] [address] Kristin Vázquez, [facility] [address] [place] [address] 06/30/2024 2:00 PM CDT Virtual Visit [facility] Mental Health & Addiction [facility] [address] [place] [address] Kristin Vázquez, [facility] [address] [place] [phone] documented as of this encounter Visit Diagnoses Diagnosis Activity of daily living alteration- Primary Debility, unspecified Cerebrovascular accident (CVA), unspecified mechanism (H) Alteration in instrumental activities of daily living (IADL) documented in this encounter Additional Health Concerns Assessment Noted Time PHQ-9 Depression Total Score: 0 06/23/20 21 4:11 PM CDT documented as of this encounter Care Teams Windrower Operator Relationship Specialty Start Date End Date Winston Villatoro OD [facility] [place] [facility] [address] [place] [address] PCP - Ophthalmology Ophthalmology 02/11/13 Denise Woodson Ra, APRN SOFTWARE LEAD [address] [address] [address] PCP - General Family Practice 09/21/20 Denise Woodson Ra, APRN SOFTWARE LEAD [address] [address] [address] Assigned PCP 07/17/20 Usha Simon APRN SOFTWARE LEAD 9 [facility] [address] Nurse Practitioner Neurological Surgery 01/24/24 Dangelo Salinas MD [address] [place], [place] [id number] Neurology 01/27/24 documented as of this encounter
--- OUTSIDE RECORDS SUMMARY | 2024-01-31 12:07 | XMS_ITS | Encounter Summary ---
Author Name Unknown Organization [facility] Address [address] [place] [address]. [place] [address] Care Team Providers Care Assembler Carbon Brushes Name Role Phone ShaunaWinston OD Unavailable [phone] Denise Woodson Ra, APRN KAIAKO KURA TUARUA Unavailable + [phone] Denise Woodson Ra, APRN KAIAKO KURA TUARUA Primary Care Provid er Usha Simon APRN KAIAKO KURA TUARUA Unavailable + [phone] Dangelo Salinas MD Unavailable Encounter Details Date Type Department Care Team (Latest Contact Info) Description 01/30/2024 Travel Social History Tobacco Use Types Packs/Day [...] Description 02/03/2024 8:45 AM CDT Therapy Visit [facility] [address] [address] Denise Woodson Ra, COIL CONNECTOR KAIAKO KURA TUARUA [address] [place] [address] Addis Rojas, PT [facility] [address] [place] [address] 02/04/2024 PRE VISIT [facility] [address] [phone] Raul Hoyos MD [address] [place] [id number] *-*INCOMING RECORDS*-* 02/04/2024 11:00 AM CDT Virtual Visit [facility] [address] [phone] Raul Hoyos MD [address] [place] [address] 02/06/2024 8:30 AM CDT Office Visit [facility] [address] [place] [address] Denise Woodson Ra, COIL CONNECTOR KAIAKO KURA TUARUA [address] [place], [place] [phone] 02/07/2024 2:00 PM CDT Therapy Visit [facility] 150 [place] [address] Danya You, PA 1470 [facility] 213 [place], [place] 9[address]34 Charis Chacon, UX DESIGN LEAD [facility] [address] [place] [address] 02/14/2024 12:45 PM CDT Therapy Visit [facility] 150 [place] [address] Danya You PA [address]50 [address] [place] [address] Isabel Beaulieu, OTR [facility] 150 [place] [address] 02/14/2024 2:00 PM CDT Therapy Visit [facility] 150 [place] [address] Danya You PA [address] [address] Charis Chacon, JUAN [facility] [address] [place] [address] 02/14/2024 2:45 PM CDT Therapy Visit [address] [phone] Danya You, PA [address] [address] Maria Eugenia Nguyen, PT 2155 [place] [address] 02/17/2024 2:45 PM CDT Therapy Visit [address] [phone] Danya You PA 2160 [facility] JIE [address] [address]65[address] Aliya Kim, UX DESIGN LEAD [address] [facility], [address] [address] 02/19/2024 3:00 PM CDT Therapy Visit [facility] [address] [place] [address] Danya You, AMAIRANI 2450 [facility] SOTO 213 [place] [address] Isabel Beaulieu, OTR [facility] 150 [place] [address] 02/26/2024 2:15 PM CDT Therapy Visit [address] [phone] Danya You, AMAIRANI 2450 [facility] [address] [address] Charis Chacon, JUAN [facility] [address] [place] [address] 02/26/2024 3:00 PM CDT Therapy Visit [address] [phone] Danya You, AMAIRANI 2450 [facility] 213 [place] [address] Isabel Beaulieu, OTR [facility] 150 [place] [address] 02/27/2024 4:45 PM CDT Therapy Visit [address] [phone] Danya You PA 2450 [facility] 213 [place] [address] Vanessa Duggan, PT 03/05/2024 1:30 PM CDT Therapy Visit [facility] [address] [place] [phone] Danya You PA [address] [address] Isabel Beaulieu, OTR [facility] 150 [place] [address] 03/05/2024 3:15 PM CDT Therapy Visit [facility] [address] [place] [phone] Danya You, AMAIRANI [facility]0 KEVIN JIE [address] [address] Charis Chacon, [facility] [address] [place] [address] 03/05/2024 4:15 PM CDT Therapy Visit [facility] [address] [place] [phone] Danya You, AMAIRANI [facility] [address] [address] Delicia George, PT [facility] [address] [address] 03/11/2024 2:15 PM CDT Therapy Visit [facility] [address] [place] [phone] Danya You PA [facility] KEVIN JIE [address] [address] Isabel Beaulieu, OTR [facility] [address] [facility] [place] [address] 03/11/2024 3:00 PM CDT Therapy Visit [facility] [address] [place] [address] Danya You, AMAIRANI [address] [place] [address] Charis Chacon, [facility] [address] [place] [address] 03/11/2024 4:15 PM CDT Therapy Visit [address] [phone] Danya You, AMAIRANI [address] [place] [address] 916[address] Delicia George, PT [facility] [address] [place] [address] 03/17/2024 1:30 PM CDT Therapy Visit [address] [phone] Danya You, PA 2450 [address] [place] [address] Isabel Beaulieu, OTR [facility] [place] [facility] 150 [place] [address] 03/17/2024 2:30 PM CDT Therapy Visit [facility] [address] [place] [address] Danya You, PA [address] [place] [address] Charis Chacon, J[facility]AN [facility] [address] [place] [address] 03/17/2024 4:00 PM CDT Therapy Visit [facility] [address] [place] [address] Dnaya You, PA 2450 [address] SOTO [address] [place] [address] Delicia George, PT [address] [address] 03/23/2024 10:30 AM CDT Office Visit [facility] [address] [place] [phone] Denise Woodson Ra, COIL CONNECTOR KAIAKO KURA TUARUA [address] [place], [place] 88[address] 03/26/2024 1:30 PM CDT Therapy Visit [address] [phone] Danya You, PA 5780 [address] JIE SOTO [address] [place] [address] Isabel Beaulieu, JAIMIE [facility] 150 [place] [address] 03/26/2024 2:30 PM CDT Therapy Visit [facility] [address] [place] [address] Danya You, PA 2450 [address] SOTO [address] [place] [address] Charis Chacon, [facility] [address] [place] [address] 03/26/2024 3:30 PM CDT Therapy Visit [facility] [address] [place] [phone] Danya You, PA [address] [place] [address] Delicia George, PT [address] [address] 04/02/2024 2:15 PM CDT Therapy Visit [facility] 150 [place] [address] Danya You, PA [address] [place] [address] Isabel Beaulieu, OTR [facility] 150 [place] [address] 04/02/2024 3:15 PM CDT Therapy Visit [facility] 150 [place] [phone] Danya You, PA [address] [place] [address] Charis Chacon, [facility] [address] [place] [address] 04/02/2024 4:15 PM CDT Therapy Visit [facility] 150 [place] [address] Danya You, PA [address] [address] Delicia George, PT [address] [address] 04/09/2024 3:15 PM CDT Therapy Visit [address] [address] Danya You, PA [address] [address] Charis Chacon, J[facility]AN [facility] [place] [address] 04/09/2024 4:15 PM CDT Therapy Visit [address] [address] Danya You, PA 2450 [facility] JULIE [address] [address] Delicia George, PT [address] [address] 04/15/2024 9:30 AM CDT Therapy Visit [address] [phone] Danya You, PA [facility]0 [address] [address] Danya Restrepo SLP 04/23/2024 2:30 PM CDT [facility] [address] [place] [address] Danya You, PA 6950 [facility] [address] [place] [address] Charis Chacon, JUAN [facility] [address] [place] [address] 06/23/2024 11:00 AM CDT Virtual Visit [facility] [address] [place] [address] Kristin Vázquez, [facility] 6341 [place] [address] 06/30/2024 2:00 PM CDT Virtual Visit [facility] 6401 [place] [address] Kristin Vázquez, [facility] [address] [place] [phone] documented as of this encounter Visit Diagnoses Not on filedocumented in this encounter Additional Health Concerns Assessment Noted Time PHQ-9 Depression Total Score: 0 06/23/20 21 4:11 PM CDT documented as of this encounter Care Teams Assembler Carbon Brushes Relationship Specialty Start Date End Date Winston Villatoro, AMELIE [facility] [place] [address] [place] [address] PCP - Ophthalmology Ophthalmology 02/11/13 Denise Woodson Ra, COIL CONNECTOR KAIAKO KURA TUARUA [address] [place] [address] PCP - General Family Practice 09/21/20 Denise Woodson Ra, APRN KAIAKO KURA TUARUA [address] [facility] [place] [address] Assigned PCP 07/17/20 Usha Simon APRN KAIAKO KURA TUARUA [address] [facility] [address] Nurse Practitioner Neurological Surgery 01/24/24 Dangelo Salinas MD [address] [place] [address] Neurology 01/27/24 documented as of this encounter
--- OUTSIDE RECORDS SUMMARY | 2024-01-31 12:07 | XMS_ITS | Encounter Summary ---
Author Name Unknown Organization [facility] Address [address] [place] [address] Care Team Providers Care Sock Lining Examiner Name Role Phone Winston Villatoro OD Unavailable [phone] Denise Woodson Ra, APRN FOXING CUTTING MACHINE OPERATOR Unavailable + [phone] Denise Woodson Ra, APRN FOXING CUTTING MACHINE OPERATOR Primary Care Provid er Usha Simon APRN FOXING CUTTING MACHINE OPERATOR Unavailable + [phone] Dangelo Salinas MD Unavailable Encounter Details Date Type Department Care Team (Late st Contact Info) Description 01/30/2024 MyC Medical Advice [facility] [address] [address] Stacey Kelley, RN Social History Tobacco Use Types Packs/Day Years [...] Description 02/03/2024 8:45 AM CDT Therapy Visit [facility] [address] [address] Denise Woodson Ra, ASSOCIATE PROFESSOR OF BIOSTATISTICS FOXING CUTTING MACHINE OPERATOR [address] [place] [address] Addis Rojas, PT [facility] [address] [place] [address] 02/04/2024 PRE VISIT [facility] [address] [phone] Raul Hoyos MD [address] [place] [phone] *-*INCOMING RECORDS*-* 02/04/2024 11:00 AM CDT Virtual Visit [facility] [address] [address] Raul Hoyos MD [address] [place] [address] 02/06/2024 8:30 AM CDT Office Visit [facility] [address] [place] [phone] Denise Woodson Ra, ASSOCIATE PROFESSOR OF BIOSTATISTICS FOXING CUTTING MACHINE OPERATOR [address] [place] [address] 02/07/2024 2:00 PM CDT Therapy Visit [facility] [address] [phone] Danya You, PA 2450 [facility] 213 [place], [place] [address] Charis Chacon, SUBSTATION OPERATOR APPRENTICE [facility] [address] [place] [address] 02/14/2024 12:45 PM CDT Therapy Visit [address] [phone] Danya You, PA [address] [place] [address] Isabel Beaulieu, OTR [address] [address] 02/14/2024 2:00 PM CDT Therapy Visit [address] [phone] Danya You PA [address] [address] Charis Chacon, JUAN [facility] [address] [place] [address] 02/14/2024 2:45 PM CDT Therapy Visit [address] [phone] Danya You, PA [address] [address] Maria Eugenia Nguyen, PT 2155 [place] [address] 02/17/2024 2:45 PM CDT Therapy Visit [address] [phone] Danya You PA [address] [place] [address] Aliya Kim, SUBSTATION OPERATOR APPRENTICE [address] [facility], [address] [place] [address] 02/19/2024 3:00 PM CDT Therapy [facility] [address] [facility] [place] [address] Danya You, AMAIRANI [address] [place] [address] Isabel Beaulieu, OTR [facility] 150 [place] [address] 02/26/2024 2:15 PM CDT [facility] 150 [place] [address] Danya You, AMAIRANI 2450 [facility] JIE SOTO [address] [place] [address] Charis Chacon, [facility] [address] [place] [address] 02/26/2024 3:00 PM CDT [facility] 150 [place] [address] Danya You, PA [address] SOTO [address] [place] [address] Isabel Beaulieu, OTR [facility] 150 [place] [address] 02/27/2024 4:45 PM CDT [facility] 150 [place] [address] Danya You PA [address] SOTO [address] [place] [address] Vanessa Duggan, PT 03/05/2024 1:30 PM CDT Therapy Visit [address] [phone] Danya You, PA [address] [place] [address] Isabel Beaulieu, OTR [address] [address] 03/05/2024 3:15 PM CDT Therapy Visit [address] [phone] Danya You, AMAIRANI [address] [place] [address] Charis Chacon, SUBSTATION OPERATOR APPRENTICE [facility] [address] [place] [address] 03/05/2024 4:15 PM CDT Therapy Visit [address] [phone] Danya You, PA 2450 [facility] SOTO [address] [place] [address] Delicia George, PT [facility] [place] [address] [place] [address] 03/11/2024 2:15 PM CDT Therapy Visit [address] [phone] Danya You, PA [address] [address] Isabel Beaulieu, OTR FV [address] [address] 03/11/2024 3:00 PM CDT Therapy Visit [facility] 150 [place] [phone] Danya You, PA [address] [address] Charis Chacon, [facility] [address] [place] [address] 03/11/2024 4:15 PM CDT Therapy Visit [address] [phone] Danya You, PA [address] [address] Delicia George, PT [facility] [address] [place] [address] 03/17/2024 1:30 PM CDT Therapy Visit [facility] 150 [place] [address] Danya You, PA [address] [address] Isabel Beaulieu, OTR [facility] [address] [place] [address] 03/17/2024 2:30 PM CDT Therapy Visit [address] [place] [address] Danya You, PA [address] [place] [address] Charis Chacon, JUAN [facility] [address] [place] [address] 03/17/2024 4:00 PM CDT Therapy Visit [address] [address] Danya You, AMAIRANI [address] [address] Delicia George, PT [facility] [address] [address] 03/23/2024 10:30 AM CDT Office Visit [facility] [address] [place] [address] Denise Woodson Ra, ASSOCIATE PROFESSOR OF BIOSTATISTICS FOXING CUTTING MACHINE OPERATOR [address] [place], [place] [address]164[address] 03/26/2024 1:30 PM CDT Therapy Visit [address] [phone] Danya You PA [address] 244544 Isabel Beaulieu, JAIMIE [address] [address] 03/26/2024 2:30 PM CDT Therapy Visit [address] [place] [address] Danya You PA [address] [place], [place] [address] Chrais Chacon SLP [facility] [address] [place], [place] [address] 03/26/2024 3:30 PM CDT Therapy Visit [facility] 150 [place] [address] Danya You, AMAIRANI [address] [place] [address] Delicia George, PT [facility] [address] [address] 04/02/2024 2:15 PM CDT Therapy Visit [facility] 150 [place] [address] Danya You, PA [address] [address] Isabel Beaulieu, OTR [facility] 150 [place] [address] 04/02/2024 3:15 PM CDT Therapy Visit [facility] 150 [place] [address] Danya You, AMAIRANI [address] [place] [address] Charis Chacon, JUAN [facility] [address] [place], [place] [address] 04/02/2024 4:15 PM CDT Therapy Visit [address] [address] Danya You PA [address] [place] [address] Delicia George, PT [address] [address] 04/09/2024 3:15 PM CDT Therapy Visit [address] [address] Danya You, AMAIRANI [address] [address] Charis Chacon, SUBSTATION OPERATOR APPRENTICE [facility] [address] [place] [address] 04/09/2024 4:15 PM CDT Therapy Visit [address] [address] Danya You, PA [address] [place] [address] Delicia George, PT [address] [address] 04/15/2024 9:30 AM CDT Therapy Visit [address] [address] Danya You PA [address] [address] Danya Restrepo, SUBSTATION OPERATOR APPRENTICE 04/23/2024 2:30 PM CDT Therapy Visit [facility] 150 [place] [address] Danya You, PA 2450 [facility] 213 [place] [address] Charis Chacon, JUAN [facility] [address] [place] [address] 06/23/2024 11:00 AM CDT Virtual Visit [facility] [address] [address] Kristin Vázquez, [facility] 6341 [place] [address] 06/30/2024 2:00 PM CDT Virtual Visit [facility] [address] [address] Kristin Vázquez, [facility] 6[address] [place] [address] documented as of this encounter Visit Diagnoses Not on filedocumented in this encounter Additional Health Concerns Assessment Noted Time PHQ-9 Depression Total Score: 0 06/23/20 21 4:11 PM CDT documented as of this encounter Care Teams Sock Lining Examiner Relationship Specialty Start Date End Date Winston Villatoro OD [facility] Alexander 701 [facility] [address] [place] [address] PCP - Ophthalmology Ophthalmology 02/11/13 Denise Woodson Ra, ASSOCIATE PROFESSOR OF BIOSTATISTICS FOXING CUTTING MACHINE OPERATOR [address] [address] [place] [address] PCP - General Family Practice 09/21/20 Denise Woodson Ra, APRN FOXING CUTTING MACHINE OPERATOR [address] [address] [place] [address] Assigned PCP 07/17/20 Usha Simon APRN FOXING CUTTING MACHINE OPERATOR 909 [facility] [address] Nurse Practitioner Neurological Surgery 01/24/24 Dangelo Salinas MD [address] [place] [address] Neurology 01/27/24 documented as of this encounter
--- OUTSIDE RECORDS SUMMARY | 2024-01-31 12:07 | XMS_ITS | Encounter Summary ---
Author Name Unknown Organization [place] Address [address] [place] [address] Care Team Providers Care Dryer Feeder Name Role Phone Winston Villatoro OD Unavailable [phone] Denise Woodson Ra, APRN OCCUPATIONAL WORK EXPERIENCE TEACHER Unavailable + [phone] Denise Woodson Ra, APRN OCCUPATIONAL WORK EXPERIENCE TEACHER Primary Care Provid er Usha Simon APRN OCCUPATIONAL WORK EXPERIENCE TEACHER Unavailable + [phone] Dangelo Salinas MD Unavailable Reason for Visit * Reason Comments New Patient * Consultation (Routine: Next available opening) - Pending Review Specialty Diagnoses / Procedures Referred By Nila shah Referred To Contact Neurological Surgery Diagnoses Dural arteriovenous fistula Jeevan Sheth MD [address] [place] [address] Referral ID Status Reason Start Date Expiration Date V isits Requested Visits Authorized [id number] Pending Review 01/23/2024 01/22/2025 1 1 Encounter Details Date Type Department Care Team (Latest Contact Info) Description 01/31/2024 9:30 AM CDT Office Visit [facility] [address] [place] [address] Jeevan Sheth MD [address] [place] [address] Usha Simon APRN [address] [place] [address] Dural arteriovenous fistula Social History Tobacco Use Types Packs/Day Years [...] Pulse 80 01/31/2024 9:17 AM CDT Temperature - - Respiratory Rate 16 01/31/2024 9:17 AM CDT Oxygen Saturation 97% 01/31/2024 9:17 AM CDT Inhaled Oxygen Concentration - - Weight 98.5 kg (217 lb 3.2 oz) 01/31/2024 9:17 A M CDT Height 174.5 cm (5' 8.7) 01/31/2024 9:17 AM CDT Body Mass Index 32.35 01/31/2024 9:17 AM CDT documented in this encounter Progress Notes * Usha Simon APRN OCCUPATIONAL WORK EXPERIENCE TEACHER - 01/31/2024 9:30 AM CDT Images from the original note were not included. [facility] Department of Neurosurgery Name: Alcon Zamora Age: [age] year old : 1975 Referring provider: Jeevan Sheth 01/31/2024 Chief Complaint: Dural AVF Questionable FMD New Patient History of Present Illness: Alcon Zamora is a 48 year old female with past medical history of Lizy-Danlos syndrome, mild persistent asthma, anxiety and depression, fibromyalgia. [facility] left sided pulsatile tinnitus on 01/09/24. Per reports, this showed findings consistent with left sigmoid dural arteriovenous fistula and Fibromuscular dysplasia in mid cervical segment. 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 She was started on Levetiracetam. She was admitted to [facility] between 01/16- 01/19/2024 for acute inpatient rehab and from - 01/21 for seizure like activity. She was in a ARU until 01/26/2024. Today, she presents for recently diagnosed dural AF and would like to transition her medical care to system. She reports waxing and waning weakness in her right arm and leg. She stopped using the walker a few days ago. She is able to walk independently, but gets tired easily. No new neurologicalconcerns today. She is in PT, OT and ST. She remains on ASA 325 mg daily. Most recent MRA neck on 01/20/2024. Per reports, this does not have the typical beaded appearance frequently seen with fibromuscular dysplasia, as was suggested on outside report 01/09/2024. Review of Systems: Pertinent items are noted in HPI or as in patient entered ROS below, remainder of complete ROS is negative. No data to display Active Medications: Current Outpatient Medications: acetaminophen (TYLENOL) 500 MG tablet, Take 1-2 tablets (500-1,000 mg) by mouth 3 times daily as needed for mild pain or headaches, Disp: , Rfl: albuterol (PROAIR HFA/PROVENTIL HFA/VENTOLIN HFA) 108 (90 Base) MCG/ACT inhaler, Inhale 2 puffs into the lungs every 4 hours as needed for shortness of breath / dyspnea or wheezing, Disp: 1 Inhaler, Rfl: 3 aspirin (ASA) 325 MG EC tablet, Take 1 tablet (325 mg) by mouth daily, Disp: 30 tablet, Rfl: 0 BREO ELLIPTA 200-25 MCG/INH Inhaler, INHALE 1 PUFF INTO THE LUNGS DAILY, Disp: 3 each, Rfl: 1 cetirizine (ZYRTEC) 10 MG tablet, Take 10 mg by mouth daily, Disp: , Rfl: levETIRAcetam (KEPPRA) 750 MG tablet, Take 1 tablet (750 mg) by mouth 2 times daily, Disp: 60 tablet, Rfl: 0 Lidocaine (LIDOCARE) 4 % Patch, Place 1 patch onto the skin every 24 hours To prevent lidocaine toxicity, patient should be patch free for 12 hrs daily., Disp: , Rfl: magnesium oxide 200 MG TABS, Ok to take magnesium supplement of your preference, Disp: , Rfl: methyl salicylate-menthol (ICY HOT) ointment, Apply topically every 6 hours as needed (pain), Disp:, Rfl: psyllium (METAMUCIL) 28.3 % packet, Take 1 packet by mouth daily, Disp: , Rfl: rosuvastatin (CRESTOR) 20 MG tablet, Take 1 tablet (20 mg) by mouth at bedtime, Disp: 30 tablet, Rfl: 0 traZODone (DESYREL) 50 MG tablet, Take 2 tablets (100 mg) by mouth At Bedtime, Disp: 180 tablet, Rfl: 3 calcium carbonate (TUMS) 500 MG chewable tablet, Take 1 tablet (500 mg) by mouth 4 times daily as needed for heartburn (Patient not taking: Reported on 01/31/2024), Disp: , Rfl: hydrOXYzine HCl (ATARAX) 50 MG tablet, Take 0.5-1 tablets (25-50 mg) by mouth every 6 hours as needed for anxiety or other (sleep) (Patient not taking: Reported on 01/31/2024), Disp: 60 tablet, Rfl: 0 senna-docusate (SENOKOT-S/PERICOLACE) 8.6-50 MG tablet, Take 2 tablets by mouth 2 times daily as needed for constipation (Patient not taking: Reported on 01/31/2024), Disp: , Rfl: Allergies: Codeine, Mold, Bupropion, and Erythromycin Past Medical History: Past Medical History: Diagnosis Date Acute posthemorrhagic [...] twin sister Stroke (H) 01/17/2024 Uncomplicated asthma Patient Active Problem List Diagnosis Generalized anxiety disorder Rosacea Chronic respiratory disease arising in the period (H28) Attention deficit hyperactivity disorder (ADHD), predominantly inattentive type BPD (bronchopulmonary dysplasia) (H28) Herniated cervical disc DDD (degenerative disc disease), cervical Lizy-Danlos syndrome ASD (atrial septal defect) Moderate persistent asthma without complication Chronic rhinitis Mild recurrent major depression (H24) Insomnia, unspecified type Anti-TPO antibodies present Stroke (H) Seizure-like activity (H) History of seizure History of stroke Pain of right upper extremity Fibromyalgia Dural arteriovenous fistula Past Surgical History: Past Surgical History: Procedure Laterality Date C OFFICE LEAD PROCEDURE DATE: vag del. C OFFICE LEAD PROCEDURE DATE: 2000 tubal ligation C OFFICE LEAD PROCEDURE DATE: 1994 D&C CARDIAC SURGERY 06/2006 heart defect repair ESOPHAGOSCOPY, GASTROSCOPY, DUODENOSCOPY (EGD), COMBINED N/A 02/08/2021 Procedure: ESOPHAGOGASTRODUODENOSCOPY (EGD); Surgeon: Tuan Miller MD; Location: GI GI SURGERY 09/2020 gallbladder removed HC KNEE SCOPE,MED/LAT MENISECTOMY 08/04/13 LT HEART CATH, CLOSURE ATRIAL SEPTAL DEFECT 06/20/06 amplatzer septal occluder- serial #[id number] RW OFFICE LEAD (ABSTRACTED) pneumonia several times SURGICAL PATHOLOGY EXAM 02/2012 excision of lipoma on chest wall ZZC VAGINAL HYSTERECTOMY 01/30/06 Family History: Family History Problem Relation Age of Onset [...] of Blood Disease No family hx of Social History: Social History Tobacco Use Smoking status: Never Smokeless tobacco: Never Substance Use Topics Alcohol use: Not Currently Comment: minimal Drug use: No Physical Exam: BP 134/82 (BP Location: Left arm, Patient Position: Sitting, Cuff Size: Adult Large) Pulse 80 Resp 16 Ht 1.745 m (5' 8.7) Wt 98.5 kg (217 lb 3.2 oz) LMP 01/07/2006 SpO2 97% BMI 32.35 kg/m?? General: No acute distress. Neuro: The patient is fully oriented to self, place, month and year. Speech is normal. Extraocular movements are intact without nystagmus. Facial sensation is intact in V1, V2, V3 distributions. Facial nerve function is normal, rated as a House Brackmann 1. No pronator drift. Mild weakness in rightextremities. Sensation intact throughout. Mild dysmetria with right ebljkh-eeav-cidbiw testing. Gait: Walks slowly with slightly wide gaze. Psych: Normal mood and affect. Behavior is normal. Imagin01/09/2024 IR Carotid Angiogram: Impression Cognard type I left sigmoid dural arteriovenous fistula with arterial supply from left middle meningeal, left ascending pharyngeal and left occipital artery branches, and with anterograde venous drainage to the left sigmoid sinus. 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 This will be treated with aspirin therapy. Assessment: Dural AVF Questionable FMD New Patient Plan: Patient to continue ASA 325 mg daily. Will discuss with Dr. Zepeda and will contact the patient with next steps. Usha Simon CNP Department of Neurosurgery I spent 30 minutes on patient care activities related to this encounter on the date of service, including time spent reviewing the chart, obtaining history and examination and in counseling the patient, and in documentation in the electronic medical record. documented in this encounter Nursing Notes * Britney Nicole - 01/31/2024 9:30 AM CDT Chief Complaint Patient presents with New Patient BP 134/82 (BP Location: Left arm, Patient Position: Sitting, Cuff Size: Adult Large) Pulse 80 Resp 16 Ht 1.745 m (5' 8.7) Wt 98.5 kg (217 lb 3.2 oz) LMP 01/07/2006 SpO2 97% BMI 32.35 kg/m?? BRITNEY NICOLE documented in this encounter Plan of Treatment Upcoming Encounters Date Type Department Care Team (Late st Contact Info) Description 02/03/2024 8:45 AM CDT Therapy Visit [address] [phone] Denise Woodson Ra, TEST MANAGER OCCUPATIONAL WORK EXPERIENCE TEACHER [address] [facility] [address] Addis Rojas, PT [facility] [address] [place], [place] [id number] 02/04/2024 PRE VISIT [facility] [address] [phone] Raul Hoyos MD [address] [place] [address] *-*INCOMING RECORDS*-* 02/04/2024 11:00 AM CDT Virtual Visit [facility] [address] [phone] Raul Hoyos MD [address] [place] [address] 02/06/2024 8:30 AM CDT Office Visit [facility] [address] [place] [phone] Denise Woodson Ra, TEST MANAGER OCCUPATIONAL WORK EXPERIENCE TEACHER [address] [facility] [address] 02/07/2024 2:00 PM CDT Therapy Visit [address] [phone] Danya You PA [address] [place] [address] Charis Chacon, JUAN [facility] [address] [place] [address] 02/14/2024 12:45 PM CDT Therapy Visit [facility] [address] [place] [phone] Danya You, PA [address] [place] [address] Isabel Beaulieu OTR [facility] [address] [place] [address] 02/14/2024 2:00 PM CDT Therapy Visit [facility] [address] [place] [address] Danya You, AMAIRANI [address] [address] Charis Chacon, JUAN [facility] [address] [place] [address] 02/14/2024 2:45 PM CDT Therapy Visit [facility] [address] [place] [phone] Danya You, PA [address] [place], [place] [address] Maria Eugenia Nguyen, PT [address] [place] [address] 02/17/2024 2:45 PM CDT Therapy Visit [facility] [address] [place] [phone] Danya You, AMAIRANI [address] [place] [address] Aliya Kim, LAWNMOWER REPAIR MECHANIC [address] [facility], [address] [place] [address] 02/19/2024 3:00 PM CDT Therapy Visit [facility] [address] [place] [phone] Danya You, AMAIRANI [address] [facility] [address] [address] Isabel Beaulieu OTR [facility] [address] [place] [address] 02/26/2024 2:15 PM CDT [facility] [address] [place] [phone] Danya You, PA [address] [place] [address] Charis Chacon, J[facility]AN [facility] [address] [place] [address] 02/26/2024 3:00 PM CDT [facility] [address] [place] [phone] Danya You, AMAIRANI [address] [facility] [address] [place] [address] Isabel Beaulieu OTR [facility] 150 [facility] [place] [address] 02/27/2024 4:45 PM CDT Therapy Visit [facility] [address] [place] [phone] Danya You PA [address] [address] Vanessa Duggan, PT 03/05/2024 1:30 PM CDT Therapy Visit [address] [phone] aDnya You, AMAIRANI [address] [phone] Isabel Beaulieu OTR [address] [address] 03/05/2024 3:15 PM CDT Therapy Visit [address] [phone] Danya You, AMAIRANI [address] [address] Charis Chacon, LAWNMOWER REPAIR MECHANIC [facility] [address] [place] [address] 03/05/2024 4:15 PM CDT Therapy Visit [address] [phone] Danya You, AMAIRANI [address] [place] [address] Delicia George, PT [facility] [address] [address] 03/11/2024 2:15 PM CDT Therapy Visit [address] [phone] Danya You, AMAIRANI [address] [place] [address] Isabel Beaulieu OTJah [address] [address] 03/11/2024 3:00 PM CDT Therapy Visit [address] [phone] Danya You, AMAIRANI [address] [place] [address] Charis Chacon, J[facility]AN [facility] [address] [place] [address] 03/11/2024 4:15 PM CDT Therapy Visit [address] [phone] Danya You, PA [address] [place] [address] Delicia George, PT [facility] [address] [place] [address] 03/17/2024 1:30 PM CDT Therapy Visit [address] [phone] Danya You, PA [address] [place] [address] Isabel Beaulieu, OTR [address] [address] 03/17/2024 2:30 PM CDT Therapy Visit [address] [phone] Danya You, PA 2450 [facility] [address] [address] Charis Chacon, JUAN [facility] [address] [place] [address] 03/17/2024 4:00 PM CDT Therapy Visit [address] [phone] Dayna You, PA [facility] [address] [address] Delicia George, PT [facility] [address] [place] [address] 03/23/2024 10:30 AM CDT Office Visit [facility] [phone] [place] [phone] Denise Woodson Ra, TEST MANAGER [facility] [address] [place], [place] [phone] 03/26/2024 1:30 PM CDT Therapy Visit [address] [phone] Danya You, PA [address] [address] Isabel Beaulieu, OTR [facility] 150 [facility] [place] [address] 03/26/2024 2:30 PM CDT Therapy Visit [facility] 150 [facility] [place] [phone] Danya You, AMAIRANI [address] [address] Charis Chacon, [facility] [address] [place] [address] 03/26/2024 3:30 PM CDT Therapy Visit [address] [phone] Danya You, PA [address] [address] Delicia George, PT [facility] [address] [place] [address] 04/02/2024 2:15 PM CDT Therapy Visit [facility] [address] [place] [phone] Danya You, PA [address] [place] [address] Isabel Beaulieu, OTR [facility] [address] [place] [address] 04/02/2024 3:15 PM CDT Therapy Visit [facility] Lyn[facility] [address] [place] [phone] Danya You PA [address] [place] [address] Charis Chacon SLP [facility] [address] [place] [address] 04/02/2024 4:15 PM CDT Therapy Visit [address] [phone] Danya You PA [address] [address] Delicia George, PT [address] [address] 04/09/2024 3:15 PM CDT Therapy Visit [address] [phone] Danya You, AMAIRANI [address] [address] Charis Chacon, JUAN [facility] [address] [place] [address] 04/09/2024 4:15 PM CDT Therapy Visit [address] [phone] Danya You PA [address] [address] Delicia George, PT [address] [address] 04/15/2024 9:30 AM CDT Therapy Visit [facility] [address] [place] [address] Danya You, PA [address] [place] [address] Danya Restrepo SLP 04/23/2024 2:30 PM CDT Therapy Visit [facility] [address] [place] [phone] Danya You, PA [address] [facility] J[facility] [address] [place] [address] Charis Chacon SLP [facility] [address] [place] [address] 06/23/2024 11:00 AM CDT Virtual Visit [facility] [address] [place] [address] Kristin Vázquez, [facility] [address] [place] [address] 06/30/2024 2:00 PM CDT Virtual Visit [facility] [address] [place] [phone] Kristin Vázquez, [facility] [address] [place] [address] documented as of this encounter Visit Diagnoses Diagnosis Dural arteriovenous fistula Cerebral aneurysm, nonruptured documented in this encounter Additional Health Concerns Assessment Noted Time PHQ-9 Depression Total Score: 0 06/23/20 21 4:11 PM CDT documented as of this encounter Care Teams Dryer Feeder Relationship Specialty Start Date End Date Winston Villatoro OD [facility] [place] [address] [place] [address] PCP - Ophthalmology Ophthalmology 02/11/13 Denise Woodson Ra, APRN OCCUPATIONAL WORK EXPERIENCE TEACHER [address] [facility] [place] [address] PCP - General Family Practice 09/21/20 Denise Woodson Ra, APRN OCCUPATIONAL WORK EXPERIENCE TEACHER [address] [place] [address] Assigned PCP 07/17/20 Usha Simon APRN OCCUPATIONAL WORK EXPERIENCE TEACHER 909 [facility], [place] [address] Nurse Practitioner Neurological Surgery 01/24/24 Dangelo Salinas MD [address] [place] [place] [address] Neurology 01/27/24 documented as of this encounter
--- OUTSIDE RECORDS SUMMARY | 2024-01-31 12:07 | XMS_ITS | Encounter Summary ---
Author Name Unknown Organization [facility] Address [address] [place] [address]. [place] [address] Care Team Providers Care Web User Experience Strategist Name Role Phone Winston Villatoro OD Unavailable [phone] Denise Woodson Ra, APRN ELECTRICAL APPLIANCE SERVICER Unavailable [phone] Denise Woodson Ra, APRN ELECTRICAL APPLIANCE SERVICER Primary Care Provid er Usha Simon APRN ELECTRICAL APPLIANCE SERVICER Unavailable [phone] Dangelo Salinas MD Unavailable Reason for Visit * Rehab Therapy Integrated Services (Routine) - Authorized Specialty Diagnoses / Procedures Referred By Nila shah Referred To Contact Diagnoses Cerebrovascular accident (CVA), unspecified mechanism (H) [address] [address] Referral ID Status Reason Start Date Expiration Date V isits Requested Visits Authorized [id number] Authorized 09/16/2023 09/15/2024 365 365 Encounter Details Date Type Department Care Team (Latest Contact Info) Description 01/29/2024 9:30 AM CDT Therapy Visit [address] [address] Danya You, PA [address] [place] [id number] Danya Restrepo, MINIBUS DRIVER Cerebrovascular accident (CVA), unspecified mechanism (H) Social History Tobacco Use Types Packs/Day Years [...] as of this encounter Progress Notes * Danya Restrepo, MINIBUS DRIVER - 01/29/2024 9:30 AM CDT SPEECH LANGUAGE PATHOLOGY EVALUATION See electronic medical record for Abuse and Falls Screening details. 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 for acute inpatient rehabilitation. She had a seizure like activity and went to [facility] for a few days. Discharged in setting of acute mental status change, concern for seizure, workup felt not consistent with seizure, episodes felt related to fatigue/stress. Functionally making progress with ongoing strength, balance, activity tolerance, and cognition below baseline, plan for home with outpatient PT/OT/MINIBUS DRIVER. ARU from 01/21-01/26/24 before discharging home. She has been doing well being home - She also notes a lot of mental and physical fatigue. She can do something for about 15-20 minutes then takes a 20 minute nap. Presenting condition or subjective complaint: recent CVA; patient reported that things seem to be coming back slowly. [place] like she had ADD tendencies at baseline. Some difficulties with short term memory (recalling information from 10 minutes ago) and feel likes brain is in first gear (taking timeto process and understand things) Date of onset: 01/17/24 Relevant medical history: see EMR Prior diagnostic imaging/testing results: MRI; CT scan Prior therapy history for the same diagnosis, illness or injury: Yes Acute stroke rehab Living Environment Social support: With a significant other or spouse (3 kids - 1 child at home); 2 grandbabies Help at home: None Employment: Yes [employer] - works from home. Did not qualify for FMLA. On LITA for 6 months.Disability approved for 8 weeks. 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 Feels her memory is improving. Working on brain activity based tasks. Objective AUDITORY COMPREHENSION (understanding of spoken language) Multi-step commands: intact Simple/factual yes/no questions: intact Comprehension of paragraph: 50-74% accuracy; 5/8 recalled when presented with Y/N questions in response to short auditory story. Difficult to discern if related to attention, comprehension, etc. Further investigation warranted. Auditory comprehension level of impairment: mild impairment VERBAL EXPRESSION (use of spoken language to express information) Confrontational Naming: intact Responsive Naming: intact Word Finding Skills: generative naming: minimal impairment, moderate impairment, able to recall 23 words in 2 minutes time targeting animals and /m/ words Conversational Speech: connected speech: intact for purposes of current evaluation sentence level: intact intact for purposes of current evaluation Verbal expression level of impairment: mild impairment READING COMPREHENSION (understanding written language) Not formally assessed; functional for purposes of today's evaluation Reading comprehension level of impairment: no impairment WRITTEN EXPRESSION (use of writing skills to express information) Functional for purposes of today's evaluation; 100% legible Written expression level of impairment: no impairment PRAGMATICS (the social or functional use of language) Nonverbal skills: WNL Verbal Skills: WNL Pragmatics level of impairment: no impairment COGNITIVE STATUS Affect/mental status: WFL Attention: intact Orientation status: Oriented to person, place and time Visual impairments: intact for purposes of evaluation however did endorse some changes in vision Short term memory: impaired, difficulties recognizing information from short story via Y/N questions. Patient reported brain fog and difficulties recalling details despite attending to story presented auditorily (5/8 shelley) [facility] memory: intact Reasoning: intact for purposes of evaluation Organization: intact for purposes of evaluation Executive function: WFL Cognition level of impairment: minimal impairment, mild impairment. Alcon was able to complete mosttasks presented this date with relative ease however she continues to endorse changes in her cognition compared to baseline. Alcon's work demands fast paced, problem solving and at this time, Alcon is observed to need increased processing time to complete tasks presented. Additional cognitive evaluation: recommended, RBANS Assessment & Plan CLINICAL IMPRESSIONS Medical Diagnosis: I63.9 (ICD-10-CM) - Cerebrovascular accident (CVA), unspecified mechanism (H) Treatment Diagnosis: mild cognitive linguistic deficits Impression/Assessment: Alcon is a 48 year old female with recent CVA and subsequent cognitive linguistic difficulties interfering with her ability to complete daily tasks. The following significant findings have been identified: impaired cognition and impaired expressive communication, characterized by need for increased time to comprehend and complete tasks, recall specific labels, process complex situations/problems, and recall information recently exposed to. Identified deficits interfere with their ability to function independently as compared to previous level of function. Alcon's goal is to return to work, continue caring for grandchildren, and operate/function at baseline speed. It is recommended that Alcon receive direct 1:1 speech and language intervention 1x/week for 3 months inefforts to improve cognitive linguistic skills as relates to her return to work and baseline tasks.Patient was educated re: recent results and recommendations. She verbally endorsed her understanding and was in agreement of current plan of care. PLAN OF CARE Treatment Interventions: Language , Cognitive skills Prognosis to achieve stated therapy goals is good Rehab potential is impacted by: comorbidities, current level of function, family/caregiver support,patient awareness of deficits, patient motivation, prior level of function, social support Car Framer Goals: MINIBUS DRIVER Goal 1 Goal Identifier: Attention Goal Description: Alcon will complete high level attention based tasks with >90% accuracy given environmental supports across 2 consecutive sessions. Rationale: To maximize safety and independence with cognitive function within the home or community Target Date: 04/27/24 MINIBUS DRIVER Goal 2 Goal Identifier: Memory Goal Description: Alcon will complete moderate-complex memory based tasks with >90% accuracy given environmental supports across 2 consecutive sessions. Rationale: To maximize safety and independence with cognitive function within the home or community Target Date: 04/27/24 MINIBUS DRIVER Goal 3 Goal Identifier: Problem Solving Goal Description: Alcon will complete moderate-complex deductive reasoning/problem solving tasks with >90% accuracy given environmental supports across 2 consecutive sessions. Rationale: To maximize safety and independence with cognitive function within the home or community Target Date: 04/27/24 MINIBUS DRIVER Goal 4 Goal Identifier: Standardized Assessment Goal Description: Alcon will participate and complete formal standardized language/cognitive assessment to further ID and/or rule out areas of deficit by March 2024. Rationale: To maximize safety and independence with cognitive function within the home or community Target Date: 03/11/24 Frequency of Treatment: 1x/week Duration of Treatment: 90 days Recommended Referrals to Other Professionals: OT/PT referrals placed Education Assessment: Learner/Method: Patient;Reading;Demonstration;Listening Education Comments: Educated patient re: recent results, prognosis, recommendations, and encourageduse of strategies to aid in areas of weakness. She verbally endorsed her understanding and was in agreement of current POC. Risks and benefits of evaluation/treatment have been explained. Patient/Family/caregiver agrees with Plan of Care. Evaluation Time: Sound production (artic, phonology, apraxia, dysarthria) Minutes (85377): 45 The patient will be discharged from therapy when snf goals are met, displays a plateau in progress, or demonstrates resistance or low motivation for therapy after redirections have been made. The patient may be discharged from therapy when parents or guardians wish to discontinue therapy and/or fails to adhere to [facility]'s attendance policy. Thank you for referring Alcon Zamora to outpatient speech therapy at [facility]. Please call Danya Restrepo MS, MINIBUS DRIVER-CCC at [phone] or email with any questions or concerns. Danya Restrepo MS, CCC-MINIBUS DRIVER documented in this encounter Plan of Treatment Upcoming Encounters Date Type Department Care Team (Late st Contact Info) Description 02/03/2024 8:45 AM CDT Therapy Visit [facility] [address] [address] Denise Woodson Ra, CLOTH SHRINKING SUPERVISOR ELECTRICAL APPLIANCE SERVICER [address] [place] [address] Addis Rojas, PT [facility] [address] [place] [address] 02/04/[address] [facility] [address] [place] [phone] Raul Hoyos MD [address] [place] [id number] *-*INCOMING RECORDS*-* 02/04/2024 11:00 AM CDT Virtual Visit [facility] Neurology [address] [phone] Raul Hoyos MD [address] [place] [id number] 02/06/2024 8:30 AM CDT Office Visit [facility] [address] [place] [phone] Denise Woodson Ra, CLOTH SHRINKING SUPERVISOR ELECTRICAL APPLIANCE SERVICER [address] [place], [place] [id number] 02/07/2024 2:00 PM CDT Therapy Visit [address] [phone] Danya You PA [address] [place] [address] Charis Chacon, [facility] [address] [place] [address] 02/14/2024 12:45 PM CDT Therapy Visit [facility] [address] [place] [phone] Danya You PA [address] [place] [address] Isabel Beaulieu, OTR [address] [address] 02/14/2024 2:00 PM CDT Therapy Visit [address] [phone] Danya You, PA 2450 [facility] [address] [place] [address] Charis Chacon, [facility] [address] [place] [address] 02/14/2024 2:45 PM CDT Therapy Visit [address] [phone] Danya You, PA 2450 [facility] [address] [address]60084 Maria Eugenia Nguyen, PT [address] [place] [address] 02/17/2024 2:45 PM CDT Therapy Visit [address] [phone] Danya You, PA 2450 [facility] [address] [place] [address] Aliya Kim, MINIBUS DRIVER [address] [id number] 02/19/2024 3:00 PM CDT Therapy Visit [address] [phone] Danya You PA [address] [place] [address] Isabel Beaulieu, OTR FV CA[facility]EL[facility] [address] [facility] [place] [address] 02/26/2024 2:15 PM CDT [facility] [address] [place] [phone] Danya You, PA [address] [address] Charis Chacon, [facility] [address] [place] [address] 02/26/2024 3:00 PM CDT Therapy [facility] [address] [place] [address] Danya You, PA [address] [address] Isabel Beaulieu, OTR [facility] [address] [place] [address] 02/27/2024 4:45 PM CDT Therapy [facility] [address] [place] [address] Danya You, PA [address] [address] Vanessa Duggan, PT 03/05/2024 1:30 PM CDT Therapy [facility] [address] [place] [phone] Danya You PA [address] [place] [address] Isabel Beaulieu, OTR FV [address] [address] 03/05/2024 3:15 PM CDT Therapy Visit [address] [phone] Danya You, AMAIRANI [address] [address] Charis Chacon, [facility] [address] [place] [address] 03/05/2024 4:15 PM CDT Therapy Visit [address] [phone] Danya You, PA [address] 643844 Delicia George, PT [facility] [address] [place] [address] 03/11/2024 2:15 PM CDT Therapy Visit [address] [phone] Danya You, PA [address] 746134 Isabel Beaulieu, OTR FV [address] [address] 03/11/2024 3:00 PM CDT Therapy Visit [address] [phone] Danya You PA [address] [address] Charis Chacon, [facility] [address] [place] [address] 03/11/2024 4:15 PM CDT Therapy Visit [address] [phone] Danya You, AMAIRANI [address] [address] Delicia George, PT [facility] [address] [place] [address] 03/17/2024 1:30 PM CDT Therapy Visit [address] [phone] Danya You, PA [address] [address] Isabel Beaulieu, OTR [address] [address] 03/17/2024 2:30 PM CDT Therapy Visit [address] [phone] Danya You PA [address] [address] Charis Chacon, [facility] [address] [place] [address] 03/17/2024 4:00 PM CDT Therapy Visit [address] [phone] Danya You, PA 2450 [facility] [address] [place] [address] Delicia George, PT [facility] [address] [address] 03/23/2024 10:30 AM CDT Office Visit [facility] [id number] [place] [phone] Denise Woodson Ra, CLOTH SHRINKING SUPERVISOR ELECTRICAL APPLIANCE SERVICER [address] [place], [place] [phone] 03/26/2024 1:30 PM CDT Therapy Visit [address] [phone] Danya You, PA 2450 [facility] [address] [address] Isabel Beaulieu OTR [address] [address] 03/26/2024 2:30 PM CDT Therapy Visit [address] [phone] Danya You, PA 2470 [facility] [address] [address] Charis Chacon, [facility] [address] [place] [address] 03/26/2024 3:30 PM CDT Therapy Visit [facility] [address] [place] [address] Danya You, AMAIRANI [address] [place] [address] Delicia George, PT [facility] [address] [address] 04/02/2024 2:15 PM CDT Therapy Visit [facility] [address] [place] [phone] Danya You, AMAIRANI [address] 276164 Isabel Beaulieu, [facility] [address] [place] [address] 04/02/2024 3:15 PM CDT Therapy Visit [facility] [address] [place] [phone] Danya You, PA [address] [address] Charis Chacon [facility] [address] [place] [address] 04/02/2024 4:15 PM CDT Therapy Visit [facility] [address] [place] [phone] Danya You, AMAIRANI [address] [address] Delicia George, PT [facility] [address] [place] [address] 04/09/2024 3:15 PM CDT Therapy Visit [address] [address] Danya You, PA [address] [address] Charis Chacon, [facility] [address] [place] [address] 04/09/2024 4:15 PM CDT Therapy Visit [address] [address] Danya You, PA [address] [address] Delicia George, PT [facility] [address] [place] [address] 04/15/2024 9:30 AM CDT Therapy Visit [address] [address] Danya You, PA [address] [address] Danya Restrepo, MINIBUS DRIVER 04/23/2024 2:30 PM CDT Therapy Visit [address] [address] Danya You, PA [address] [place] [address] Charis Chacon, [facility] [address] [place] [address] 06/23/2024 11:00 AM CDT Virtual Visit [facility] Mental [facility] [address] [phone] Kristin Vázquez, [facility] [address] [place] [address] 06/30/2024 2:00 PM CDT Virtual Visit [facility] Addiction [address] [phone] Kristin Vázquez, [facility] [address] [place] [address] documented as of this encounter Visit Diagnoses Diagnosis Cerebrovascular accident (CVA), unspecified mechanism (H) documented in this encounter Additional Health Concerns Assessment Noted Time PHQ-9 Depression Total Score: 0 06/23/20 21 4:11 PM CDT documented as of this encounter Care Teams Web User Experience Strategist Relationship Specialty Start Date End Date Winston Villatoro OD [facility] [place] [address] [facility] [address] [place] [address] PCP - Ophthalmology Ophthalmology 02/11/13 Denise Woodson Ra, APRN ELECTRICAL APPLIANCE SERVICER [address] [address] PCP - General Family Practice 09/21/20 Denise Woodson Ra, APRN ELECTRICAL APPLIANCE SERVICER [address] [address] Assigned PCP 07/17/20 Usha Simon APRN ELECTRICAL APPLIANCE SERVICER [address] [facility] [address] Nurse Practitioner Neurological Surgery 01/24/24 Dangelo Salinas MD [address] [place] [address] Neurology 01/27/24 documented as of this encounter
--- OUTSIDE RECORDS SUMMARY | 2024-01-31 12:07 | XMS_ITS | Encounter Summary ---
Author Name Unknown Organization [facility] Address [address] [place] [address]. [place] [address] Care Team Providers Care Social Media Strategist Name Role Phone Winston Villatoro OD Unavailable [phone] Denise Woodson Ra, APRN WHEEL PRESS OPERATOR Unavailable [phone] Denise Woodson Ra, APRN WHEEL PRESS OPERATOR Primary Care Provid er Usha Simon APRN WHEEL PRESS OPERATOR Unavailable [phone] Dangelo Salinas MD Unavailable Reason for Visit * Rehab Therapy Integrated Services (Routine) - Authorized Specialty Diagnoses / Procedures Referred By Nila shah Referred To Contact Diagnoses Cerebrovascular accident (CVA), unspecified mechanism (H) [address] [address] Referral ID Status Reason Start Date Expiration Date V isits Requested Visits Authorized [id number] Authorized 09/16/2023 09/15/2024 365 365 Encounter Details Date Type Department Care Team (Latest Contact Info) Description 01/28/2024 1:15 PM CDT Therapy Visit [address] [address] Danya You, PA [address] [place] [address] [phone] Delicia George, PT [facility] [address] [place] [phone] Cerebrovascular accident (CVA), unspecified mechanism (H) Social [...] documented as of this encounter Patient Instructions * Patient Instructions* Delicia George, PT - 01/28/2024 1:15 PM CDT documented in this encounter Progress Notes * Delicia George, PT - 01/28/2024 1:15 PM CDT PHYSICAL THERAPY EVALUATION Type of Visit: Evaluation See electronic medical record for Abuse and Falls Screening details. 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 She had a seizure like activity and went to [facility]. Discharged in sett ing of acute mental status change, concern for seizure, workup felt not consistent with seizure, episodes felt related to fatigue/stress. 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 ARU from01/21- 01/26/24 before discharging home. She has been doing well being home - started with a walker because she has 3 big dogs and wanted itfor stability. She used it a little yesterday but today she has not used it at all. She has been walking in her yard and carrying things, also notes she is able to walk a little faster today. She usually works from home. She has to go up and down stairs to get to her office -split level with office downstairs. She did the stairs to the basement today, using railings. She also notes a lot of mental and physical fatigue. She can do something for about 15-20 minutes then takes a 20 minute nap. She feels like her balance is off and her vision is off. She feels like her vision overlaps a little like it is not as crisp of a motion. Her brain can fix it given time. She also notes increased instability with fatigue. 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 Acute rehab order for return to work is 8 weeksor sooner based on progress. Lots of high level critical thinking skills - feels this is her biggest impairment and what she wants to get back to. 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 Patient goals for therapy: Go back to work Pain assessment: Location: Neck, chronic/Ratin/10 currently, >10/10 at worst in the hospital, 2/10 at best Objective Cognitive Status Examination See OT/ST jojo OBSERVATION: Several rest breaks due to eye strain and fatigue, symptoms improved with rest POSTURE: Sitting Posture: Rounded shoulders, Forward head GAIT: Patient ambulates with decreased gait speed, moderate path deviation. Stair negotiation with B UE support. SENSATION: Not currently, feels like she gets more numbness and tingling in her right arm and leg more with fatigue, feels heaviness intermittently. VESTIBULAR EVALUATION ADDITIONAL HISTORY: Description of symptoms: Dizzy attacks: Feels like her head is floating Start: Intermittently since CVA Last attack: During evaluation Frequency of occurrences: A couple of times per day Length of attack: 30-45 seconds, can stop and correction Difficulty hearing: No Noise in ears? Pulsatile tinnitus, no change Alleviates symptoms: Time Worsens symptoms: Visual stimulation, TV Activities that bring on symptoms: Pertinent visual history: Lack of crispness, can't watch TV - feels like everything is coming at her and it is too much. Oculomotor Screen Ocular ROM Smooth Pursuit Lacks crispness at start of testing, vertical diplopia that resolved with about 10-15 seconds and blinking, right facial numbness, eye fatigue Saccades VOR Blurry vision, eye strain and burning, VOR Cancellation Distorted vision with left side compared to right, eye strain, heavy under her eyes, vision is less Head Impulse Test Not able to tolerate at evaluation Convergence Testing Assessment & Plan CLINICAL IMPRESSIONS Medical Diagnosis: Cerebrovascular accident (CVA), unspecified mechanism I63.9 Treatment Diagnosis: Sensory selection and weighting deficit Impression/Assessment: Patient is a 48 year old female with visual sensitivity, balance, and dizziness complaints. The following significant findings have been identified: Pain, Impaired balance, Impaired sensation, Impaired gait, Decreased activity tolerance, Instability, Dizziness, Disequilibrium, and Impaired vision. 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 Clinical Decision Making (Complexity): Clinical Presentation: Evolving/Changing Clinical Presentation Rationale: based on medical and personal factors listed in PT evaluation Clinical Decision Making (Complexity): Moderate complexity PLAN OF CARE Treatment Interventions: Interventions: Gait Training, Manual Therapy, Neuromuscular Re-education, Therapeutic Activity, Therapeutic Exercise, Self-Care/Home Management, Canalith Repositioning Halfway Goals PT Goal 1 Goal Identifier: HEP Goal Description: Patient will demonstrate understanding and compliance to her HEP at least 3x per week for continued wellbeing upon discharge from skilled physical therapy. Rationale: to maximize safety and independence with performance of ADLs and functional tasks;to maximize safety and independence within the home;to maximize safety and independence within the community;to maximize safety and independence with self cares Target Date: 04/07/24 PT Goal 2 Goal Identifier: DHI Goal Description: Patient will complete the DHI with a reduction in score by 18 points or more to demonstrate significant improvement in dizziness and balance for increased safety and independence with functional mobility. Rationale: to maximize safety and independence with performance of ADLs and functional tasks;to maximize safety and independence within the home;to maximize safety and independence within the community;to maximize safety and independence with self cares Goal Progress: Eval: notes dizziness intermittently, not formally assessed Target Date: 04/07/24 PT Goal 3 Goal Identifier: DVA Goal Description: Patient will complete DVA testing with a loss of 3 lines of less to demonstrate improved gaze stabilization for balance and safety with functional mobility. Rationale: to maximize safety and independence with performance of ADLs and functional tasks;to maximize safety and independence within the home;to maximize safety and independence within the community;to maximize safety and independence with self cares Goal Progress: Eval: Lack of crisp vision at eval Target Date: 04/07/24 PT Goal 4 Goal Identifier: Gait speed Goal Description: Patient will ambulate at a normal speed of >1.0 m/s with the least restrictiveAD or no AD to demonstrate improved step length and gait speed for increased safety and independence with crossing the street. Rationale: to maximize safety and independence within the home;to maximize safety and independence within the community;to maximize safety and independence with transportation Goal Progress: Eval: Patient ambulates with decreased gait speed, moderate path deviation. Target Date: 04/07/24 PT Goal 5 Goal Identifier: FGA Goal Description: Patient will complete the FGA with a score of 24/30 to demonstrate improved balance and decreased risk for falls. Rationale: to maximize safety and independence with performance of ADLs and functional tasks;to maximize safety and independence within the home;to maximize safety and independence within the community;to maximize safety and independence with self cares Goal Progress: Eval: Patient ambulates with decreased gait speed, moderate path deviation. Stair negotiation with B UE support. Target Date: 04/07/24 Frequency of Treatment: 1x per week, decreasing in frequency as indicated Duration of Treatment: 10 weeks Recommended Referrals to Other Professionals: Occupational Therapy, Speech Language Pathology scheduled Education Assessment: Learner/Method: Patient;Demonstration;Pictures/Video Education Comments: Exam findings, POC, HEP Risks and benefits of evaluation/treatment have been explained. Patient/Family/caregiver agrees with Plan of Care. Evaluation Time: PT Lev Bajwa Minutes ([id number]): 35 Signing Clinician: Delicia George PT documented in this encounter Plan of Treatment Upcoming Encounters Date Type Department Care Team (Late st Contact Info) Description 02/03/2024 8:45 AM CDT Therapy Visit [address] [phone] Denise Woodson Ra, PATHOLOGICAL TECHNICIAN WHEEL PRESS OPERATOR [address] [place] [address] Addis Rojas, PT [facility] [address] [place] [address] 02/04/2024 PRE VISIT [facility] Neurology [address] [phone] Raul Hoyos MD [address] [place] [id number] *-*INCOMING RECORDS*-* 02/04/2024 11:00 AM CDT Virtual Visit [facility] Neurology [address] [phone] Raul Hoyos MD [address] [place] [address] [id number] 02/06/2024 8:30 AM CDT Office Visit [facility] [address] [place] [phone] Denise Woodson Ra, APRN CNP [address] [place] [address] 02/07/2024 2:00 PM CDT Therapy Visit [address] [phone] Danya You, PA [address] [place] [address] [phone] Charis Chacon SLP [facility] [address] [place], [place] [id number] 02/14/2024 12:45 PM CDT Therapy Visit [address] [phone] Danya You, PA [address] [facility] [address] [id number] Isabel Beaulieu, OTR [address] [address] 02/14/2024 2:00 PM CDT Therapy Visit [address] [phone] Danya You, PA [address] [place] [address] [place] [address] 246704 Charis Chacon, J[facility]AN [facility] [address] [place], [place] [address] 02/14/2024 2:45 PM CDT Therapy Visit [facility] [address] [place] [address] Danya You, PA 2450 [facility] [address] [place] [address] Maria Eugenia Nguyen, PT [address] [place] [address] 02/17/2024 2:45 PM CDT Therapy Visit [address] [phone] Danya You PA [address] [place] [address] Aliya Kim, MEDICAL RESEARCH TECH [address] [facility] [address] [place] [address] 02/19/2024 3:00 PM CDT Therapy Visit [address] [phone] Danya You, PA [address] [place] [address] [address] Isabel Beaulieu, OTR [address] [address] 02/26/2024 2:15 PM CDT Therapy Visit [address] [phone] Danya You PA [address] [place] [address] [place] [address] Charis Chacon, J[facility]AN [facility] [address] [place] [address] 02/26/2024 3:00 PM CDT Therapy Visit [facility] [address] [place] [address] Danya You PA 2450 [facility] [address] [place] [address] Isabel Beaulieu, OTR [facility] [address] [place] [address] 02/27/2024 4:45 PM CDT Therapy Visit [facility] [address] [place] [address] Danya You, PA [address] [facility] [address] [place] [address] Vanessa Duggan, GALINA 03/05/2024 1:30 PM CDT Therapy Visit [facility] [address] [place] [phone] Danya You, AMAIRANI [facility] [address] [place] [address] Isabel Beaulieu, OTR [facility] [address] [place] [address] 03/05/2024 3:15 PM CDT Therapy Visit [facility] [address] [place] [phone] Danya You, AMAIRANI [address] [facility] [address] [place] [address] Charis Chacon, [facility] [address] [place] [address] 03/05/2024 4:15 PM CDT Therapy Visit [address] [phone] Danya You, AMAIRANI [facility] [address] [address] Delicia George, PT [facility] [address] [place] [address] 03/11/2024 2:15 PM CDT Therapy Visit [address] [phone] Danya You, AMAIRANI [facility] [address] [address] Isabel Beaulieu, OTR [address] [address] 03/11/2024 3:00 PM CDT Therapy Visit [address] [phone] Danya You, PA [address] [place] [address] Charis Chacon, J[facility]AN [facility] [address] [place] [address] 03/11/2024 4:15 PM CDT Therapy Visit [address] [phone] Danya You, PA [address] [place], [place] [address] [address] 436844 Delicia George, PT [facility] [address] [place] [address] 03/17/2024 1:30 PM CDT Therapy Visit [address] [phone] Danya You, AMAIRANI [facility] [address] [address] Isabel Beaulieu, OTR [address] [address] 03/17/2024 2:30 PM CDT Therapy Visit [address] [phone] Danya You, PA [facility] [address] [address] Charis Chacon, [facility] [address] [place] [address] 03/17/2024 4:00 PM CDT Therapy Visit [address] [phone] Danya You, PA [address] [place] [address] Delicia George, PT [facility] [address] [place] [address] 03/23/2024 10:30 AM CDT Office Visit [address] [phone] Denise Woodson Ra, PATHOLOGICAL TECHNICIAN WHEEL PRESS OPERATOR [address] [place] [address] 03/26/2024 1:30 PM CDT Therapy Visit [address] [phone] Danya You, PA [address] [place] [address] [address] Isabel Beaulieu, OTR [address] [address] 03/26/2024 2:30 PM CDT Therapy Visit [address] [phone] Danya You, PA [address] [address] Charis Chacon, [facility] [address] [place] [address] 03/26/2024 3:30 PM CDT Therapy Visit [address] [phone] Danya You, PA [facility] [place] [address] [address] Delicia George, PT [facility] [address] [place] [address] 04/02/2024 2:15 PM CDT Therapy Visit [address] [phone] Danya You, AMAIRANI [address] [place] [address] Isabel Beaulieu, OTR [address] [address] 04/02/2024 3:15 PM CDT Therapy Visit [address] [phone] Danya You, PA [address] [address] Charis Chacon, J[facility]AN [facility] [address] [place] [address] 04/02/2024 4:15 PM CDT Therapy Visit [address] [phone] Danya You, PA [address] 093854 Delicia George, PT [facility] [address] [place] [address] 04/09/2024 3:15 PM CDT Therapy Visit [address] [phone] Danya You, PA [address] [place] [address] Charis Chacon, [facility] [address] [place], [place] [address] 04/09/2024 4:15 PM CDT Therapy Visit [facility] [address] [place] [address] Danya You, PA [address] [address] [address] Delicia George, PT [facility] [address] [address] 04/15/2024 9:30 AM CDT Therapy Visit [address] [phone] Danya You, PA 2450 [facility] [address] [address] Danya Restrepo, MEDICAL RESEARCH TECH 04/23/2024 2:30 PM CDT Therapy Visit [address] [phone] Danya You, PA [address] [place], [place] [address] [address] [address] Charis Chacon, [facility] [address] [place] [address] 06/23/2024 11:00 AM CDT Virtual Visit [facility] [address] [place] [phone] Kristin Vázquez, [facility] [address] [facility] [place] [phone] 06/30/2024 2:00 PM CDT Virtual Visit [facility] [address] [facility] [place] [phone] Kristin Vázquez, [facility] [address] [facility] [place] [phone] documented as of this encounter Visit Diagnoses Diagnosis Cerebrovascular accident (CVA), unspecified mechanism (H) documented in this encounter Additional Health Concerns Assessment Noted Time PHQ-9 Depression Total Score: 0 06/23/20 21 4:11 PM CDT documented as of this encounter Care Teams Social Media Strategist Relationship Specialty Start Date End Date Winston Villatoro, OD [facility] [place] [address] [place] [address] PCP - Ophthalmology Ophthalmology 02/11/13 Denise Woodson Ra, APRN WHEEL PRESS OPERATOR [address] [place] [address] PCP - General Family Practice 09/21/20 Denise Woodson Ra, APRN WHEEL PRESS OPERATOR [address] [place] [address] Assigned PCP 07/17/20 Usha Simon APRN WHEEL PRESS OPERATOR 9 [facility] [address] Nurse Practitioner Neurological Surgery 01/24/24 Dangelo Salinas MD [address] [place] [address] [place], [place] [phone] Neurology 01/27/24 documented as of this encounter
--- OUTSIDE RECORDS SUMMARY | 2024-01-31 12:07 | XMS_ITS | Encounter Summary ---
Author Name Unknown Organization [facility] Address [address] [place] [address] Care Team Providers Care Engraver Copperplate Name Role Phone ShaunaWinston OD Unavailable [phone] Denise Woodson Ra, APRN BOOKKEEPING MANAGER Unavailable + [phone] Denise Woodson Ra, APRN BOOKKEEPING MANAGER Primary Care Provid er Usha Simon APRN BOOKKEEPING MANAGER Unavailable +- [phone] Dangelo Salinas MD Unavailable Encounter Details Date Type Department Care Team (Late st Contact Info) Description 01/30/2024 Telephone [facility] [address] 3rd [place] [address] Stacey Kelley RN Social History Tobacco Use Types Packs/Day [...] encounter Miscellaneous Notes * Telephone Encounter - Stacey Kelley RN - 01/30/2024 10:12 AM CDT Images from the original note were not included. Raul Hoyos MD P Stroke/Neurovascular Nurses Hi - if she is going to have most of her other care in [facility] and is going to stay in [facility] system(except for neurosurgery) she should follow there. If she is going to stay in our system, I can seeher. Thanks Called patient to discuss where most of her care is taking place. [facility] for patient letting her knowI was calling from Dr. Hoyos's office with a couple questions and will send her a [employer] message. Left my contact information for further questions/concerns. Stacey Kelley, RN 01/30/2024 10:15 AM documented in this encounter Plan of Treatment Upcoming Encounters Date Type Department Care Team (Late st Contact Info) Description 02/03/2024 8:45 AM CDT Therapy Visit [address] [phone] Denise Woodson Ra, WAREHOUSE DIRECTOR BOOKKEEPING MANAGER [address] [place] [address] Addis Rojas, PT [facility] [address] [place], [place] [phone] 02/04/2024 PRE VISIT [facility] Neurology [address] [address] Raul Hoyos MD [address] [place] [address] *-*INCOMING RECORDS*-* 02/04/2024 11:00 AM CDT Virtual Visit [facility] Neurology [address] [address] Raul Hoyos MD [address] [place] [address] [phone] 02/06/2024 8:30 AM CDT Office Visit [facility] [address] [place] [phone] Denise Woodson Ra, WAREHOUSE DIRECTOR BOOKKEEPING MANAGER [address] [place], [place] [phone] 02/07/2024 2:00 PM CDT Therapy Visit [address] [phone] Danya You, AMAIRANI [address] [place] [address] Charis Chacon SLP [facility] [address] [place] [address] 02/14/2024 12:45 PM CDT Therapy Visit [address] [phone] Danya You, AMAIRANI [address] [address] Isabel Beaulieu, OTR [address] [address] 02/14/2024 2:00 PM CDT Therapy Visit [address] [phone] Danya You PA [address] [address] Charis Chacon SLP [facility] [address] [place] [address] 02/14/2024 2:45 PM CDT Therapy Visit [facility] [address] [place] [phone] Danya You, PA 2450 [facility] 213 [place] [address] Maria Eugenia Nguyen, PT 2[address] [place] [address] 02/17/2024 2:45 PM CDT Therapy Visit [facility] 150 [place] [phone] Danya You, AMAIRANI 2450 [facility] 213 [place] [address] Aliya Kim, CNC WOOD LATHE OPERATOR [address] [facility], [facility] 200 [place] [address] 02/19/2024 3:00 PM CDT Therapy Visit [address] [phone] Danya You, PA 2450 [facility] 213 [place] [address] Isabel Beaulieu, OTR [address] [address] 02/26/2024 2:15 PM CDT Therapy Visit [address] [phone] Danya You, PA 2450 [facility] [address] [place] [address] Charis Chacon, J[facility]AN [facility] [address] [place] [address] 02/26/2024 3:00 PM CDT Therapy Visit [facility] 150 [place] [address] Danya You, PA 2450 [facility] [address] [place] [address] Isabel Beaulieu, OTR [facility] 150 [place] [address] 02/27/2024 4:45 PM CDT Therapy Visit [address] [phone] Danya You, PA 2450 [facility] [address] [place], [place] [address] Vanessa Duggan, PT 03/05/2024 1:30 PM CDT Therapy Visit [address] [phone] Danya You, PA [facility] [address] [place] [address] Isabel Beaulieu OTR [facility] 150 [place] [address] 03/05/2024 3:15 PM CDT Therapy Visit [address] [phone] Danya You, PA [address] [place], [place] [address] 213 [place] [address] Charis Chacon, [facility] [address] [place] [address] 03/05/2024 4:15 PM CDT Therapy Visit [address] [phone] Danya You PA [address] [place] [address] Delicia George, PT [facility] SURGERY [address] [address] 03/11/2024 2:15 PM CDT Therapy Visit [address] [phone] Danya You, AMAIRANI [address] [place] [address] Isabel Beaulieu, OTJah [address] [address] 03/11/2024 3:00 PM CDT Therapy Visit [address] [phone] Danya You, PA [address] [address] Charis Chacon, [facility] [address] [place] [address] 03/11/2024 4:15 PM CDT Therapy Visit [address] [phone] Danya You PA [address] [place] [address] Delicia George, PT [address] [address] 03/17/2024 1:30 PM CDT Therapy Visit [address] [phone] Danya You, PA [address] [address] Isabel Beaulieu OTR [address] [address] 03/17/2024 2:30 PM CDT Therapy Visit [address] [phone] Danya You, PA [address] [address] Charis Chacon, [facility] [address] [place] [address] 03/17/2024 4:00 PM CDT Therapy Visit [address] [phone] Danya You, PA [address] [address] Delicia George, PT [address] [address] 03/23/2024 10:30 AM CDT Office Visit [address] [address] Denise Woodson Ra, WAREHOUSE DIRECTOR BOOKKEEPING MANAGER [address] [facility] [address] 03/26/2024 1:30 PM CDT Therapy Visit [address] [phone] Danya You, PA 2450 [facility] [address] [place] [address] Isabel Beaulieu, OTR [address] [address] 03/26/2024 2:30 PM CDT Therapy Visit [address] [phone] Danya You, PA [address] [address] Charis Chacon, [facility] [address] [place] [address] 03/26/2024 3:30 PM CDT Therapy Visit [address] [phone] Danya You, PA [address] [address] Delicia George, PT [facility] [address] [address] 04/02/2024 2:15 PM CDT Therapy Visit [address] [address] Danya You PA [address] [place] [address] Isabel Beaulieu, OTR [facility] [address] [place] [address] 04/02/2024 3:15 PM CDT Therapy Visit [address] [address] Danya You, PA [address] [address] Charis Chacon, [facility] [address] [place] [address] 04/02/2024 4:15 PM CDT Therapy Visit [address] [phone] Danya You, PA [address] [address] Delicia George, PT [facility] SURGERY [address] [address] 04/09/2024 3:15 PM CDT Therapy Visit [address] [phone] Danya You, AMAIRANI 2450 [facility] SOTO [address] [place] [address] Charis Chacon, [facility] [address] [place] [address] 04/09/2024 4:15 PM CDT Therapy Visit [address] [phone] Danya You, PA [address] [address] Delicia George, PT [address] [address] 04/15/2024 9:30 AM CDT Therapy Visit [address] [phone] Danya You, PA [address] [address] Danya Restrepo, CNC WOOD LATHE OPERATOR 04/23/2024 2:30 PM CDT Therapy Visit [address] [phone] Danya You, PA [address] [place] [address] Charis Chacon, [facility] [address] [place] [address] 06/23/2024 11:00 AM CDT Virtual Visit [facility] Mental Health & Addiction [facility] [address] [place] [phone] Kristin Vázquez, [facility] 6[address] [place] [address] 06/30/2024 2:00 PM CDT Virtual Visit [facility] Mental Health & Addiction [facility] 6401 [place] [phone] Kristin Vázquez, [facility] 6341 [facility] [place] [facility] [place] [address] documented as of this encounter Visit Diagnoses Not on filedocumented in this encounter Additional Health Concerns Assessment Noted Time PHQ-9 Depression Total Score: 0 06/23/20 21 4:11 PM CDT documented as of this encounter Care Teams Engraver Copperplate Relationship Specialty Start Date End Date Winston Villatoro, OD [facility] [place] [address] [place] [address] PCP - Ophthalmology Ophthalmology 02/11/13 Denise Woodson Ra, APRN BOOKKEEPING MANAGER [address] [place] [address] PCP - General Family Practice 09/21/20 Denise Woodson Ra, APRN BOOKKEEPING MANAGER [address] [place] [address] Assigned PCP 07/17/20 Usha Simon APRN BOOKKEEPING MANAGER 909 [facility] [place] [address] Nurse Practitioner Neurological Surgery 01/24/24 Dangelo Salinas MD [address] [place] [address] Neurology 01/27/24 documented as of this encounter
--- OUTSIDE RECORDS SUMMARY | 2024-01-31 12:07 | XMS_ITS | Encounter Summary ---
Author Name Unknown Organization [facility] Address [address] [place] [address] Care Team Providers Care Completions Manager Name Role Phone Winston Villatoro OD Unavailable [phone] Denise Woodson Ra, APRN HEALTH SCIENCES PROGRAM COORDINATOR Unavailable +- [phone] Denise Woodson Ra, APRN HEALTH SCIENCES PROGRAM COORDINATOR Primary Care Provid er Usha Simon APRN HEALTH SCIENCES PROGRAM COORDINATOR Unavailable [phone] Dangelo Salinas MD Unavailable Encounter Details Date Type Department Care Team (Late st Contact Info) Description 01/29/2024 MyC Medical Advice [address] [phone] Danya Restrepo, REPLANTING MACHINE CREWMAN Social History Tobacco Use Types Packs/Day Years [...] Department Care Team (Late Contact Info) Description 02/03/2024 8:45 AM CDT Therapy Visit [address] [address] Denise Woodson Ra, COMPUTING SYSTEMS MECHANIC HEALTH SCIENCES PROGRAM COORDINATOR [address] [place] [address] Addis Rojas, PT [facility] [address] [place] [address] 02/04/2024 PRE VISIT [facility] Neurology Clinic [address] [phone] Raul Hoyos MD [address] [place] [address] *-*INCOMING RECORDS*-* 02/04/2024 11:00 AM CDT Virtual Visit [facility] Neurology [address] [address] Raul Hoyos MD [address] [place] [address] 02/06/2024 8:30 AM CDT Office Visit [facility] [address] [place] [phone] Denise Woodson Ra, COMPUTING SYSTEMS MECHANIC HEALTH SCIENCES PROGRAM COORDINATOR [address] [place] [address] 02/07/2024 2:00 PM CDT Therapy Visit [facility] Rehabilitation Services [address] [phone] Danya You, PA [address] [place] [address] Charis Chacon, REPLANTING MACHINE CREWMAN [facility] [address] [place] [address] 02/14/2024 12:45 PM CDT Therapy Visit [address] [phone] Danya You, PA [address] [place] [address] Isabel Beaulieu, OTR [address] [address] 02/14/2024 2:00 PM CDT Therapy Visit [address] [phone] Danya You PA [address] [address] Charis Chacon, JUAN [facility] [address] [place] [address] 02/14/2024 2:45 PM CDT Therapy Visit [address] [phone] Danya You, PA [address] [address] Maria Eugenia Nguyen, PT 2155 [place] [address] 02/17/2024 2:45 PM CDT Therapy Visit [address] [phone] Danya You PA [address] [place] [address] Aliya Kim, REPLANTING MACHINE CREWMAN [address] [facility], [address] [place] [address] 02/19/2024 3:00 PM CDT Therapy Visit [facility] 150 [facility] [address] Danya You, AMAIRANI [address] [place] [address] Isabel Beaulieu, OTR [facility] [address] [place] [address] 02/26/2024 2:15 PM CDT [facility] [address] [place] [address] Danya You, AMAIRANI [address] [address] Charis Chacon, [facility] [address] [place] [address] 02/26/2024 3:00 PM CDT Therapy [facility] [address] [place] [phone] Danya You, PA [address] [address] Isabel Beaulieu, OTR [facility] [address] [place] [address] 02/27/2024 4:45 PM CDT Therapy Visit [facility] [address] [place] [address] Danya You, AMAIRANI [address] [address] Vanessa Duggan, PT 03/05/2024 1:30 PM CDT Therapy Visit [address] [phone] Danya You, PA 2450 [facility] S[facility] [address] [place] [address] Isabel Beaulieu, OTR [address] [address] 03/05/2024 3:15 PM CDT Therapy Visit [address] [phone] Danya You, PA 2450 [facility] [address] [address] [address] Charis Chacon, REPLANTING MACHINE CREWMAN [facility] [address] [place] [address] 03/05/2024 4:15 PM CDT Therapy Visit [address] [phone] Danya You, PA [address] [address] Delicia George, PT [facility]NA 909 [place] [address] 03/11/2024 2:15 PM CDT Therapy Visit [address] [phone] Danya You, PA [address] [address] Isabel Beaulieu, OTR [facility] [address] [place] [address] 03/11/2024 3:00 PM CDT Therapy Visit [facility] [address] [place] [phone] Danya You, PA [address] [address] Charis Chacon, [facility] [address] [place] [address] 03/11/2024 4:15 PM CDT Therapy Visit [address] [phone] Danya You, PA [address] [address] Delicia George, PT [facility] [address] [place] [address] 03/17/2024 1:30 PM CDT Therapy Visit [facility] [address] [place] [address] Danya You, PA [address] [address] Isabel Beaulieu, OTR [facility] [address] [place] [address] 03/17/2024 2:30 PM CDT Therapy Visit [facility] 150 [place] [address] Danya You, PA Yohana[address] [place] [address] Charis Chacon SLP [facility] [address] [place] [address] 03/17/2024 4:00 PM CDT Therapy Visit [address] [phone] Danya You, AMAIRANI 8830 [facility] S[facility] [address] [place] [address] Delicia George, PT [facility] SURGERY [address] [address] 03/23/2024 10:30 AM CDT Office Visit [facility] [address] [place] [address] Denise Woodson Ra, COMPUTING SYSTEMS MECHANIC HEALTH SCIENCES PROGRAM COORDINATOR [address] [place], [place] 86[address] 03/26/2024 1:30 PM CDT Therapy Visit [address] [phone] Danya You PA 245[facility] SOTO [address] [place] [address] Isabel Beaulieu OTR [address] [address] 03/26/2024 2:30 PM CDT Therapy Visit [address] [phone] Danya You PA [address] [place], [place] [address] Charis Chacon SLP [facility] [address] [place] [address] 03/26/2024 3:30 PM CDT Therapy Visit [facility] 150 [place] [address] Danya You, AMAIRANI [address] [place] [address] Delicia George, PT [facility]ERY [address] [address] 04/02/2024 2:15 PM CDT Therapy Visit [facility] 150 [place] [address] Danya You, PA [address] [place] [address] Isabel Beaulieu, OTR [facility] 150 [place] [address] 04/02/2024 3:15 PM CDT Therapy Visit [facility] [address] [place] [address] Danya You, AMAIRANI [address] [place] [address] Charis Chacon, [facility] [address] [place], [place] [address] 04/02/2024 4:15 PM CDT Therapy Visit [address] [phone] Danya You, AMAIRANI [address] [place] [address] Delicia George, PT [address] [address] 04/09/2024 3:15 PM CDT Therapy Visit [address] [phone] Danya You, PA [address] [address] Charis Chacon, REPLANTING MACHINE CREWMAN [facility] [address] [place] [address] 04/09/2024 4:15 PM CDT Therapy Visit [address] [address] Danya You, PA [address] [place] [address] Delicia George, PT [address] [address] 04/15/2024 9:30 AM CDT Therapy Visit [address] [phone] Danya You PA [address] [place] [address] Danya Restrepo, REPLANTING MACHINE CREWMAN 04/23/2024 2:30 PM CDT Therapy Visit [facility] Rehabilitation Services [facility] 150 [place] [address] Danya You, PA 3650 [facility] 213 [place] [address] Charis Chacon, [facility] [address] [place] [address] 06/23/2024 11:00 AM CDT Virtual Visit [facility] Mental [facility] & Addiction [address] [address] Kristin Vázquez, [facility] [address] [place] [address] 06/30/2024 2:00 PM CDT Virtual Visit [facility] Mental [facility] & Addiction [address] [address] Kristin Vázquez, [facility] [address] [place] [address] documented as of this encounter Visit Diagnoses Not on filedocumented in this encounter Additional Health Concerns Assessment Noted Time PHQ-9 Depression Total Score: 0 06/23/20 21 4:11 PM CDT documented as of this encounter Care Teams Completions Manager Relationship Specialty Start Date End Date Winston Villatoro OD [facility] [place] 701 [facility] [address] [place] [address] PCP - Ophthalmology Ophthalmology 02/11/13 Denise Woodson Ra, COMPUTING SYSTEMS MECHANIC HEALTH SCIENCES PROGRAM COORDINATOR [address] [place] [address] PCP - General Family Practice 09/21/20 Denise Woodson Ra, APRN HEALTH SCIENCES PROGRAM COORDINATOR [address] [place] [address] Assigned PCP 07/17/20 Usha Simon APRN HEALTH SCIENCES PROGRAM COORDINATOR 9 [facility], [place] [address] Nurse Practitioner Neurological Surgery 01/24/24 Dangelo Salinas MD [address] [place] [address] Neurology 01/27/24 documented as of this encounter
--- OUTSIDE RECORDS SUMMARY | 2024-01-31 12:07 | XMS_ITS | Encounter Summary ---
Author Name Unknown Organization [place] Address [address] [place] [address]. [place] [address] Care Team Providers Care Principal Investigator Name Role Phone ShaunaWinston OD Unavailable [phone] Denise Woodson Ra, APRN INDUSTRIAL/ORGANIZATIONAL PSYCHOLOGIST Unavailable + [phone] Denise Woodson Ra, APRN INDUSTRIAL/ORGANIZATIONAL PSYCHOLOGIST Primary Care Provid er Usha Simon APRN INDUSTRIAL/ORGANIZATIONAL PSYCHOLOGIST Unavailable + [phone] Dangelo Salinas MD Unavailable Encounter Details Date Type Department Care Team (Latest Contact Info) Description 01/28/2024 Travel Social History Tobacco Use Types Packs/Day [...] Description 02/03/2024 8:45 AM CDT Therapy Visit [facility] [address] [address] Denise Woodson Ra, TRIAL MANAGEMENT ASSOCIATE INDUSTRIAL/ORGANIZATIONAL PSYCHOLOGIST [address] [place] [address] Addis Rojas, PT [facility] [address] [place] [address] 02/04/2024 PRE VISIT [facility] [address] [phone] Raul Hoyos MD [address] [place] [id number] *-*INCOMING RECORDS*-* 02/04/2024 11:00 AM CDT Virtual Visit [facility] [address] [phone] Raul Hoyos MD [address] [place] [address] [id number] 02/06/2024 8:30 AM CDT Office Visit [facility] [address] [place] [address] Denise Woodson Ra, TRIAL MANAGEMENT ASSOCIATE INDUSTRIAL/ORGANIZATIONAL PSYCHOLOGIST [address] [place], [place] [phone] 02/07/2024 2:00 PM CDT Therapy Visit [facility] 150 [place] [address] Danya You, PA 2560 [facility] 213 [place], [place] [address] Charis Chacon, PROPERTY INSURANCE INSPECTOR [facility] [address] [place] [address] 02/14/2024 12:45 PM CDT Therapy Visit [facility] 150 [place] [address] Danya You PA [address] [place] [place] [facility] [address] [place] [address] Isabel Beaulieu, OTR [facility] 150 [place] [address] 02/14/2024 2:00 PM CDT Therapy Visit [facility] 150 [place] [address] Danya You PA [address] [place] [address] [address] Charis Chacon, JUAN [facility] [address] [place] [address] 02/14/2024 2:45 PM CDT Therapy Visit [address] [phone] Danya oYu, PA 2450 [place] [address] [address] Maria Eugenia Nguyen, PT 2155 [place] [address] 02/17/2024 2:45 PM CDT Therapy Visit [address] [phone] Danya You PA 9100 [facility] [address] 725334 Aliya Kim, PROPERTY INSURANCE INSPECTOR [address] [facility], [address] [address] 02/19/2024 3:00 PM CDT Therapy Visit [facility] 150 [place] [address] Danya You, AMAIRANI 2450 [facility] [address] [place] [address] Isabel Beaulieu, OTR [facility] 150 [place] [address] 02/26/2024 2:15 PM CDT Therapy Visit [address] [phone] Danya You, AMAIRANI 2450 [facility] [address] [address] Charis Chacon, JUAN [facility] [address] [place] [address] 02/26/2024 3:00 PM CDT Therapy Visit [address] [phone] Danya You, AMAIRANI 2450 [facility] 213 [place] [address] Isabel Beaulieu, OTR [facility] 150 [place] [address] 02/27/2024 4:45 PM CDT Therapy Visit [address] [phone] Danya You PA 2450 [facility] 213 [place] [address] Vanessa Duggan, PT 03/05/2024 1:30 PM CDT Therapy Visit [facility] [address] [place] [phone] Danya You PA [address] [place] [address] [address] [address] Isabel Beaulieu, OTR [facility] 150 [place] [address] 03/05/2024 3:15 PM CDT Therapy Visit [facility] 150 [place] [phone] Danya You, AMAIRANI [facility]0 [place] [address] [address] Charis Chacon, [facility] [address] [place] [address] 03/05/2024 4:15 PM CDT Therapy Visit [facility] 150 [place] [phone] Danya You, AMAIRANI [facility]0 [address] [address] Delicia George, PT [facility] [address] [address] 03/11/2024 2:15 PM CDT Therapy Visit [facility] 150 [place] [phone] Danya You PA [facility]0 [place] [address] [address] Isabel Beaulieu, OTR [facility] 150 [place] [address] 03/11/2024 3:00 PM CDT Therapy Visit [facility] 150 [place] [address] Danya You, AMAIRANI [address] [place] [address] [place] [address] Charis Chacon, [facility] [address] [place] [address] 03/11/2024 4:15 PM CDT Therapy Visit [address] [phone] Danya You, AMAIRANI [address] [place] [address] [phone] Delicia George, PT [facility] [address] [place] [address] 03/17/2024 1:30 PM CDT Therapy Visit [address] [phone] Danya You, PA 2450 [address] [place] [address] Isabel Beaulieu, OTR [facility]IE [facility] 150 [place] [address] 03/17/2024 2:30 PM CDT Therapy Visit [facility] 150 [place] [address] Danya You, PA [address] [place] [address] Charis Chacon, [facility] [address] [place] [address] 03/17/2024 4:00 PM CDT Therapy Visit [facility] 150 [place] [address] Danya You, PA 2450 [place] SOTO [address] [place] [address] Delicia George, PT [address] [address] 03/23/2024 10:30 AM CDT Office Visit [facility] [address] [place] [phone] Denise Woodson Ra, TRIAL MANAGEMENT ASSOCIATE INDUSTRIAL/ORGANIZATIONAL PSYCHOLOGIST [address] [place], [place] 5463168 03/26/2024 1:30 PM CDT Therapy Visit [address] [phone] Danya You, PA 9800 [place] SOTO [address] [place] [address] Isabel Beaulieu, JAIMIE [facility] 150 [place] [address] 03/26/2024 2:30 PM CDT Therapy Visit [facility] 150 [place] [phone] Danya You, PA 2450 [place] SOTO [address] [place] [address] Charis Chacon, [facility] [address] [place] [address] 03/26/2024 3:30 PM CDT Therapy Visit [facility] 150 [place] [address] Danya You, PA [address] [place] [address] Delicia George, PT [address] [address] 04/02/2024 2:15 PM CDT Therapy Visit [facility] 150 [place] [address] Danya You, PA [address] [place] [address] Isabel Beaulieu, OTR [facility] 150 [place] [address] 04/02/2024 3:15 PM CDT Therapy Visit [facility] 150 [place] [phone] Danya You, PA [address] [place] [address] Charis Chacon, [facility] [address] [place] [address] 04/02/2024 4:15 PM CDT Therapy Visit [facility] 150 [place] [address] Danya You, PA [address] [address] Delicia George, PT [address] [address] 04/09/2024 3:15 PM CDT Therapy Visit [address] [address] Danya You, PA [address] [address] Charis Chacon, [facility] [place] [address] 04/09/2024 4:15 PM CDT Therapy Visit [address] [phone] Danya You, PA 2450 [facility] J[facility]IE [address] [address] Delicia George, PT [address] [address] 04/15/2024 9:30 AM CDT Therapy Visit [address] [address] Danya You, PA [facility]0 [address] [address] Danya Restrepo SLP 04/23/2024 2:30 PM CDT [facility] [address] [place] [address] Danya You, PA 5940 [facility] 213 [place] [address] Charis Chacon, [facility] [address] [place] [address] 06/23/2024 11:00 AM CDT Virtual Visit [facility] 6401 [place] [address] Kristin Vázquez, [facility] 6341 [place] [address] 06/30/2024 2:00 PM CDT Virtual Visit [facility] 6401 [place] [address] Kristin Vázquez, [facility] [address] [place] [phone] documented as of this encounter Visit Diagnoses Not on filedocumented in this encounter Additional Health Concerns Assessment Noted Time PHQ-9 Depression Total Score: 0 06/23/20 21 4:11 PM CDT documented as of this encounter Care Teams Principal Investigator Relationship Specialty Start Date End Date Winston Villatoro, AMELIE [facility] [place] [address] [place] [address] PCP - Ophthalmology Ophthalmology 02/11/13 Denise Woodson Ra, TRIAL MANAGEMENT ASSOCIATE INDUSTRIAL/ORGANIZATIONAL PSYCHOLOGIST [address] [address] [address] PCP - General Family Practice 09/21/20 Denise Woodson Ra, APRN INDUSTRIAL/ORGANIZATIONAL PSYCHOLOGIST [address] [facility] [place] [address] Assigned PCP 07/17/20 Usha Simon APRN INDUSTRIAL/ORGANIZATIONAL PSYCHOLOGIST 909 [facility]2121[place], [place] [address] Nurse Practitioner Neurological Surgery 01/24/24 Dangelo Salinas MD [address] [place] [address] Neurology 01/27/24 documented as of this encounter
--- OUTSIDE RECORDS SUMMARY | 2024-01-31 12:08 | XMS_ITS | Encounter Summary ---
Author Name Unknown Organization [facility] Address [address] [place] [address]. [place] [address] Care Team Providers Care Stack Clerk Name Role Phone ShaunaWinston OD Unavailable +[phone] Denise Woodson Ra, APRN APN Unavailable + [phone] Denise Woodson Ra, APRN APN Primary Care Provid er Usha Simon APRN APN Unavailable + [phone] Dangelo Salinas MD Unavailable Encounter Details Date Type Department Care Team (Latest Contact Info) Description 01/27/2024 Travel Social History Tobacco Use Types Packs/Day [...] Description 02/03/2024 8:45 AM CDT Therapy Visit [facility] [address] [address] Denise Woodson Ra, LEAN SPECIALIST APN [address] [place] [address] Addis Rojas, PT [facility] [address] [place] [address] 02/04/2024 PRE VISIT [facility] [address] [phone] Raul Hoyos MD [address] [place] [address] *-*INCOMING RECORDS*-* 02/04/2024 11:00 AM CDT Virtual Visit [facility] Neurology [address] [phone] Raul Hoyos MD [address] [place] [address] 9925[address] 02/06/2024 8:30 AM CDT Office Visit [facility] [address] [place] [address] Denise Woodson Ra, LEAN SPECIALIST APN [address]13 [place], [place] [phone] 02/07/2024 2:00 PM CDT Therapy Visit [facility] 150 [place] [address] Danya You, PA 0290 [facility] 213 [place], [place] 5397[address] Charis Chacon, MASSEUR/MASSEUSE [facility] [address] [place] [address] 02/14/2024 12:45 PM CDT Therapy Visit [facility] 150 [place] [address] Danya You PA [address] [place] [address] [place] [address] Isabel Beaulieu, OTR [facility] 150 [place] [address] 02/14/2024 2:00 PM CDT Therapy Visit [facility] 150 [place] [address] Danya You PA [address] [place] [address] [address] Charis Chacon, [facility] [address] [place] [address] 02/14/2024 2:45 PM CDT Therapy Visit [address] [phone] Danya You, PA [address] [place] [address] [address] Maria Eugenia Nguyen, PT 2[address] [place] [address] 02/17/2024 2:45 PM CDT Therapy Visit [address] [phone] Danya You PA 4180 [facility] [address] 8[address] Aliya Kim, MASSEUR/MASSEUSE [address] [facility], [address] [address] 02/19/2024 3:00 PM CDT Therapy Visit [facility] 150 [place] [address] Danya You, AMAIRANI 2450 [facility] [address] [place] [address] Isabel Beaulieu, OTR [facility] 150 [place] [address] 02/26/2024 2:15 PM CDT Therapy Visit [address] [phone] Danya You, AMAIRANI 2450 [facility] [address] [address] Charis Chacon, [facility] [address] [place] [address] 02/26/2024 3:00 PM CDT Therapy Visit [address] [phone] Danya You, AMAIRANI 2450 [facility] [address] [place] [address] Isabel Beaulieu, OTR [facility] 150 [place] [address] 02/27/2024 4:45 PM CDT Therapy Visit [address] [phone] Danya You PA 2450 [facility] 213 [place] [address] Vanessa Duggan, PT 03/05/2024 1:30 PM CDT Therapy Visit [facility] 150 [place] [phone] Danya You PA [address] [place] [address] [address] Isabel Beaulieu, OTR [facility] [address] [place] [address] 03/05/2024 3:15 PM CDT Therapy Visit [facility] 150 [place] [address] Danya You, AMAIRANI [facility] [place] [address] [address] [address] Charis Chacon, [facility] [address] [place] [address] 03/05/2024 4:15 PM CDT Therapy Visit [facility] 150 [place] [address] Danya You, AMAIRANI [facility] [address] [address] Delicia George, PT [facility] [address] [address] 03/11/2024 2:15 PM CDT Therapy Visit [facility] 150 [place] [address] Danya You PA [facility] [place] [address] [address] Isabel Beaulieu, OTR [facility] 150 [facility] [address] 03/11/2024 3:00 PM CDT Therapy Visit [facility] 150 [place] [address] Danya You, AMAIRANI [address] [place] [address] Charis Chacon, [facility] [address] [place] [address] 03/11/2024 4:15 PM CDT Therapy Visit [address] [phone] Danya You, AMAIRANI [address] [place] [address] Delicia George, PT [facility] [address] [place] [address] 03/17/2024 1:30 PM CDT Therapy Visit [address] [phone] Danya You, PA [address] [place] [address] Isabel Beaulieu, OTR VALARIE NAP[facility]uis [facility] 150 [place] [address] 03/17/2024 2:30 PM CDT Therapy Visit [facility] 150 [place] [address] Danya You, PA [address] [place] [address] Charis Chacon, [facility] [address] [place] [address] 03/17/2024 4:00 PM CDT Therapy Visit [facility] 150 [place] [address] Danya You, PA [address] [place] [address] [place] [address] Delicia George, PT [address] [address] 03/23/2024 10:30 AM CDT Office Visit [facility] [phone] [place] [phone] Denise Woodson Ra, LEAN SPECIALIST APN [address] [place], [place] [phone] 03/26/2024 1:30 PM CDT Therapy Visit [address] [phone] Danya You, PA 3150 [place] [address] [place] [address] Isabel Beaulieu, JAIMIE [facility] 150 [place] [address] 03/26/2024 2:30 PM CDT Therapy Visit [facility] 150 [place] [address] Danya You, PA [address] [place] [address] [place] [address] Charis Chacon, [facility] [address] [place] [address] 03/26/2024 3:30 PM CDT Therapy Visit [facility] 150 [place] [address] Danya You, PA [address] [place] [address] Delicia George, PT [address] [address] 04/02/2024 2:15 PM CDT Therapy Visit [facility] 150 [place] [address] Danya You, PA [address] [place] [address] Isabel Beaulieu, OTR [facility] 150 [place] [address] 04/02/2024 3:15 PM CDT Therapy Visit [facility] 150 [place] [phone] Danya You, PA [address] [place] [address] Charis Chacon, [facility] [address] [place] [address] 04/02/2024 4:15 PM CDT Therapy Visit [facility] 150 [place] [address] Danya You, PA [address] [address] Delicia George, PT [address] [address] 04/09/2024 3:15 PM CDT Therapy Visit [address] [address] Danya You, PA [address] [address] Charis Chacon, [facility] [place] [address] 04/09/2024 4:15 PM CDT Therapy Visit [address] [address] Danya You, PA 2450 [facility] [address] [address] Delicia George, PT [address] [address] 04/15/2024 9:30 AM CDT Therapy Visit [address] [phone] Danya You, PA [facility] [address] [address] Danya Restrepo SLP 04/23/2024 2:30 PM CDT Therapy Visit [facility] [address] [place] [address] Danya You, PA 2560 [facility] [address] [place] [address] Charis Chacon, [facility] [address] [place] [address] 06/23/2024 11:00 AM CDT Virtual Visit [facility] [address] [place] [address] Kristin Vázquez, [facility] 6341 [place] [address] 06/30/2024 2:00 PM CDT Virtual Visit [facility] [address] [place] [address] Kristin Vázquez, [facility] [address] [place] [phone] documented as of this encounter Visit Diagnoses Not on filedocumented in this encounter Additional Health Concerns Assessment Noted Time PHQ-9 Depression Total Score: 0 06/23/20 21 4:11 PM CDT documented as of this encounter Care Teams Stack Clerk Relationship Specialty Start Date End Date Winston Villatoro, AMELIE [facility] [address] [place] [address] PCP - Ophthalmology Ophthalmology 02/11/13 Denise Woodson Ra, LEAN SPECIALIST APN [id number] [place] [place] [address] PCP - General Family Practice 09/21/20 Denise Woodson Ra, APRN APN 70448 [facility] [address] Assigned PCP 07/17/20 Usha Simon APRN APN 909 [facility]2121[place], [place] [address] Nurse Practitioner Neurological Surgery 01/24/24 Dangelo Salinas MD [address] [place] [address] Neurology 01/27/24 documented as of this encounter
--- OUTSIDE RECORDS SUMMARY | 2024-01-31 12:08 | XMS_ITS | Encounter Summary ---
Author Name Unknown Organization [facility] Address [address] [place] [address] Care Team Providers Care Animal Treatment Investigator Name Role Phone Winston Villatoro OD Unavailable Denise Woodson Ra, APRN BARBER APPRENTICE Unavailable + [phone] Denise Woodson Ra, APRN BARBER APPRENTICE Primary Care Provid er Usha Simon APRN BARBER APPRENTICE Unavailable + [phone] Dangelo Salinas MD Unavailable Encounter Details Date Type Department Care Team (Late st Contact Info) Description 01/27/2024 MyC Medical Advice [facility] [address] [address] [facility] Social History Tobacco Use Types Packs/Day Years [...] Description 02/03/2024 8:45 AM CDT Therapy Visit [facility] Rehabilitation Services [address] [address] Denise Woodson Ra, LOAD HAUL DUMP OPERATOR BARBER APPRENTICE [address] [place] [address] Addis Rojas, PT [facility] [address] [place] [address] 02/04/2024 PRE VISIT [facility] [address] [phone] Raul Hoyos MD [address] [place] [address] *-*INCOMING RECORDS*-* 02/04/2024 11:00 AM CDT Virtual Visit [facility] Neurology [address] [address] Raul Hoyos MD [address] [place] [address] 916655 02/06/2024 8:30 AM CDT Office Visit [facility] [address] [place] [phone] Denise Woodson Ra, LOAD HAUL DUMP OPERATOR BARBER APPRENTICE [address] [place] [address] 02/07/2024 2:00 PM CDT Therapy Visit [facility] [address] [phone] Danya You, PA [address] [place], [place] 7[address]894 Charis Chacon, ENSEMBLE MEMBER [facility] [address] [place] [address] 02/14/2024 12:45 PM CDT Therapy Visit [address] [address] Danya You, PA [address] [place] [address] Isabel Beaulieu, OTR [address] [address] 02/14/2024 2:00 PM CDT Therapy Visit [address] [address] Danya You PA [address] [address] Charis Chacon, JUAN [facility] [address] [place] [address] 02/14/2024 2:45 PM CDT Therapy Visit [address] [address] Danya You, PA [address] [place] [address] Maria Eugenia Nguyen, PT 2155 [place] [address] 02/17/2024 2:45 PM CDT Therapy Visit [address] [phone] Danya You PA [address] [place] [address] Aliya Kim, ENSEMBLE MEMBER [id number] [place] [address], [address] [place] [address] 02/19/2024 3:00 PM CDT Therapy Visit [facility] 150 [place] [address] Danya You, AMAIRANI [address] [place] [address] Isabel Beaulieu, OTR [facility] 150 [place] [address] 02/26/2024 2:15 PM CDT Therapy Visit [facility] 150 [place] [address] Danya You, AMAIRANI [address] [place] [address] Charis Chacon, [facility] [address] [place] [address] 02/26/2024 3:00 PM CDT [facility] 150 [place] [address] Danya You, PA [address] [place] [address] Isabel Beaulieu, OTR [facility] [address] [place] [address] 02/27/2024 4:45 PM CDT [facility] 150 [place] [phone] Danya oYu PA [address] [place] [address] Vanessa Duggan, PT 03/05/2024 1:30 PM CDT Therapy Visit [address] [phone] Danya You, PA [address] [place] [address] Isabel Beaulieu, OTR [address] [address] 03/05/2024 3:15 PM CDT Therapy Visit [address] [phone] Danya You, PA [address] [place] [address] Charis Chacon, ENSEMBLE MEMBER [facility] [address] [place] [address] 03/05/2024 4:15 PM CDT Therapy Visit [address] [phone] Danya You, PA [address] [address] Delicia George, PT [facility] [address] [place] [address] 03/11/2024 2:15 PM CDT Therapy Visit [address] [phone] Danya You, PA [address] [address] Isabel Beaulieu, OTR FV [address] [address] 03/11/2024 3:00 PM CDT [facility] 150 [place] [address] Danya You, PA [address] [address] Charis Chacon, [facility] [address] [place] [address] 03/11/2024 4:15 PM CDT Therapy Visit [address] [phone] Danya You, PA [address] [address] Delicia George, PT [facility] [address] [place] [address] 03/17/2024 1:30 PM CDT Therapy Visit [facility] 150 [place] [phone] Danya You, PA [address] [address] Isabel Beaulieu, OTR [facility] [address] [place] [address] 03/17/2024 2:30 PM CDT Therapy Visit [address] [place] [address] Danya You, PA [address] [place] [address] Charis Chacon SLP [facility] [address] [place] [address] 03/17/2024 4:00 PM CDT Therapy Visit [address] [address] Danya You, AMAIRANI [address] [place] [address] Delicia George, PT [facility] [address] [address] 03/23/2024 10:30 AM CDT Office Visit [facility] [address] [place] [address] Denise Woodson Ra, LOAD HAUL DUMP OPERATOR BARBER APPRENTICE [address] [place], [place] 19[address] 03/26/2024 1:30 PM CDT Therapy Visit [address] [phone] Danya You PA [address] [place] [address] Isabel Beaulieu OTR [address] [address] 03/26/2024 2:30 PM CDT Therapy Visit [address] [place] [address] Danya You PA [address] [place], [place] [address] Charis Chacon SLP [facility] [address] [place] [address] 03/26/2024 3:30 PM CDT Therapy Visit [facility] 150 [place] [address] Danya You, AMAIRANI [address] [place] [address] Delicia George, PT [facility] [address] [address] 04/02/2024 2:15 PM CDT Therapy Visit [facility] 150 [place] [address] Danya You, PA [address] [place] [address] Isabel Beaulieu, OTR [facility] [address] [place] [address] 04/02/2024 3:15 PM CDT Therapy Visit [facility] 150 [place] [address] Danya You, AMAIRANI [address] [place] [address] Charis Chacon, JUAN [facility] [address] [place], [place] 39[address] 04/02/2024 4:15 PM CDT Therapy Visit [address] [address] Danya You PA [address] [place] [address] Delicia George, PT [address] [address] 04/09/2024 3:15 PM CDT Therapy Visit [address] [address] Danya You, AMAIRANI [address] [address] Charis Chacon, ENSEMBLE MEMBER [facility] [address] [place] [address] 04/09/2024 4:15 PM CDT Therapy Visit [address] [address] Danya You, PA [address] [place] [address] Delicia George, PT [address] [address] 04/15/2024 9:30 AM CDT Therapy Visit [address] [address] Danya You PA [address] [address] Danya Restrepo, ENSEMBLE MEMBER 04/23/2024 2:30 PM CDT Therapy Visit [facility] 150 [place] [address] Danya You, PA 2450 [facility] [address] [place] [address] Charis Chacon, JUAN [facility] [address] [place] [address] 06/23/2024 11:00 AM CDT Virtual Visit [facility] Mental [facility] [address] [address] Kristin Vázquez, [facility] [address] [place] [address] 06/30/2024 2:00 PM CDT Virtual Visit [facility] Mental [facility] [address] [address] Kristin Vázquez, [facility] [address] [place] [address] documented as of this encounter Visit Diagnoses Not on filedocumented in this encounter Additional Health Concerns Assessment Noted Time PHQ-9 Depression Total Score: 0 06/23/20 21 4:11 PM CDT documented as of this encounter Care Teams Animal Treatment Investigator Relationship Specialty Start Date End Date Winston Villatoro OD [facility] [place] [address] [facility] [address] [place] [address] PCP - Ophthalmology Ophthalmology 02/11/13 Denise Woodson Ra, LOAD HAUL DUMP OPERATOR BARBER APPRENTICE [address] [place] [address] PCP - General Family Practice 09/21/20 Denise Woodson Ra, APRN BARBER APPRENTICE [address] [address] [place] [address] Assigned PCP 07/17/20 Usha Simon APRN BARBER APPRENTICE 909 [facility] [address] Nurse Practitioner Neurological Surgery 01/24/24 Dangelo Salinas MD [address] [place] [address] Neurology 01/27/24 documented as of this encounter
--- OUTSIDE RECORDS SUMMARY | 2024-01-31 12:08 | XMS_ITS | Encounter Summary ---
Author Name Unknown Organization Page Address [address] [place] [address]. [place] [address] Care Team Providers Care Machine Captain Name Role Phone Winston Villatoro OD Unavailable [phone] Denise Woodson Ra, APRN HEAD OF MATHEMATICS Unavailable + [phone] Denise Woodson Ra, APRN HEAD OF MATHEMATICS Primary Care Provid er Usha Simon C.O.D. CLERK HEAD OF MATHEMATICS Unavailable +- [phone] Encounter Details Date Type Department Care Team (Latest Contact Info) Description 01/25/2024 Travel Social History Tobacco Use Types Packs/Day [...] Description 02/03/2024 8:45 AM CDT Therapy Visit [facility] [address] [address] Denise Woodson Ra, C.O.D. CLERK HEAD OF MATHEMATICS [address] [place], [place] 6[address] Addis Rojas, PT [facility] [address] [place] [address] 02/04/2024 PRE VISIT [facility] [address]rd [place] [phone] Raul Hoyos MD [address] [place] [address] *-*INCOMING RECORDS*-* 02/04/2024 11:00 AM CDT Virtual Visit [facility] [address] [address] Raul Hoyos MD [address] [place] [address] 916755 02/06/2024 8:30 AM CDT Office Visit [facility] [address] [place] [address] Denise Woodson Ra, C.O.D. CLERK [facility] [address] [place], [place] 75[address] 02/07/2024 2:00 PM CDT Therapy Visit [facility] 150 [place] [address] Danya You PA 2450 [facility] 213 [place] [address] Charis Chacon, J[facility]AN [facility] [address] [place] [address] 02/14/2024 12:45 PM CDT Therapy Visit [facility] 150 [place] [phone] Danya You PA [address] [place] [address] Isabel Beaulieu, OTR [facility] 150 [place] [address] 02/14/2024 2:00 PM CDT Therapy Visit [address] [address] Danya You, PA 6370 [facility] [address] [place] [address] Charis Chacon, JUAN [facility] [address] [place] [address] 02/14/2024 2:45 PM CDT Therapy Visit [address] [address] Danya You, PA 1860 [facility] [address] [place], [place] [address] Maria Eugenia Nguyen, PT 2155 [place] [address] 02/17/2024 2:45 PM CDT Therapy Visit [address] [address] Danya You PA 3320 [facility] 213 [place], [place] 7[address] Aliya Kim, PRODUCTION REPAIRER [address] [facility], [facility] 200 [place] [address] 02/19/2024 3:00 PM CDT Therapy Visit [address] [place] [address] Danya You PA [address] [place] [address] Isabel Beaulieu, OTR [facility] 150 [facility] [place] [address] 02/26/2024 2:15 PM CDT Therapy Visit [facility] 150 [place] [address] Danya You, AMAIRANI [address] [place] [address] Charis Chacon, J[facility]AN [facility] [address] [place] [address] 02/26/2024 3:00 PM CDT Therapy [facility] 150 [place] [address] Danya You, AMAIRANI 2450 [facility] SOTO [address] [place] [address] Isabel Beaulieu, OTR [facility] [address] [place] [address] 02/27/2024 4:45 PM CDT Therapy [facility] 150 [place] [address] Danya You, AMAIRANI 2450 [facility] [address] [place] [address] Vanessa Duggan, PT 03/05/2024 1:30 PM CDT Therapy Visit [facility] [place] 150 [place] [address] Danya You PA [address] [place] [address] 649714 Isabel Beaulieu, OTR [facility] 150 [place] [address] 03/05/2024 3:15 PM CDT Therapy Visit [facility]e [address] [place] [address] Danya You, AMAIRANI [address] [address] Charis Chacon, [facility] [address] [place] [address] 03/05/2024 4:15 PM CDT Therapy Visit [facility] [address] [place] [address] Danya You, AMAIRANI [address] [address] Delicia George, PT [facility] [address] [place] [address] 03/11/2024 2:15 PM CDT Therapy Visit [facility]e 150 [place] [address] Danya You, AMAIRANI [address] [address] Isabel Beaulieu, OTR [facility] [address] [place] [address] 03/11/2024 3:00 PM CDT Therapy Visit [address] [address] Danya You, PA 2450 [facility] JIE SOTO [address] [place] [address] Charis Chacon, JUAN [facility] [address] [place] [address] 03/11/2024 4:15 PM CDT Therapy Visit [address] [address] Danya You, PA [address] [address] Delicia George, PT [facility] [address] [place] [address] 03/17/2024 1:30 PM CDT Therapy Visit [address] [phone] Danya You, PA [address] [address] Isabel Beaulieu OTR [address] [address] 03/17/2024 2:30 PM CDT Therapy Visit [address] [address] Danya You, PA [address] [address] Charis Chacon, [facility] [address] [place] [address] 03/17/2024 4:00 PM CDT Therapy Visit [address] [phone] Danya You, PA [address] [address] Delicia George, PT [facility] SUR[facility]ERY [address] 5329[address] 03/23/2024 10:30 AM CDT Office Visit [facility] [address] [place] [address] Denise Woodson Ra, C.O.D. CLERK [facility] [address] [place], [place] 9027[address] 03/26/2024 1:30 PM CDT Therapy Visit [address] [phone] Danya You, PA [facility]0 [address] [address] Isabel Beaulieu OTJah [address] [address] 03/26/2024 2:30 PM CDT Therapy Visit [address] [address] Danya You, PA [facility]0 [address] [address] Charis Chacon, JUAN [facility] [address] [place] [address] 03/26/2024 3:30 PM CDT Therapy Visit [facility] [address] [place] [address] Danya You, PA [address] [place] [address] Delicia George, PT [facility] SUR[facility]ERY [address] [address] 04/02/2024 2:15 PM CDT Therapy Visit [facility] 150 [place] [address] Danya You, PA [address] [place] [address] Isabel Beaulieu, JAIMIE [facility] 150 [place] [address] 04/02/2024 3:15 PM CDT Therapy Visit [facility] [address] [place] [address] Danya You, PA [address] [place] [address] Charis Chacon, JUAN [facility] [address] [place] [address] 04/02/2024 4:15 PM CDT Therapy Visit [facility] [address] [place] [address] Danya You PA [address] [place] [address] Delicia George, PT [address] [address] 04/09/2024 3:15 PM CDT Therapy Visit [address] [address] Danya You, PA [address] [place] [address] Charis Chacon, JUAN [facility] [address] [place] [address] 04/09/2024 4:15 PM CDT Therapy Visit [address] [phone] Danya You PA [address] [place] [address] Delicia George, PT [facility] [address] [place] [address] 04/15/2024 9:30 AM CDT Therapy Visit [address] [phone] Danya You, PA [address] [place] [address] Danya Restrepo, PRODUCTION REPAIRER 04/23/2024 2:30 PM CDT Therapy Visit [address] [address] Danya You, PA 2450 [facility] 213 [place] [address] Charis Chacon, [facility] [address] [place] [address] 06/23/2024 11:00 AM CDT Virtual Visit [facility] [address] [place] [address] Kristin Vázquez, [facility] 2641 [place] [address] 06/30/2024 2:00 PM CDT Virtual Visit [facility] & [facility] [address] [place] [address] Kristin Vázquez, [facility] 6341 [place] [address] documented as of this encounter Visit Diagnoses Not on filedocumented in this encounter Additional Health Concerns Assessment Noted Time PHQ-9 Depression Total Score: 0 06/23/20 21 4:11 PM CDT documented as of this encounter Care Teams Machine Captain Relationship Specialty Start Date End Date Winston Villatoro OD [facility] [place] 701 [facility] [address] [place] [address] PCP - Ophthalmology Ophthalmology 02/11/13 Denise Woodson Ra, APRN HEAD OF MATHEMATICS [address] [facility] [place] [id number] PCP - General Family Practice 09/21/20 Denise Woodson Ra, APRN HEAD OF MATHEMATICS [address] [address]IMO [place] [address] Assigned PCP 07/17/20 Usha Simon APRN HEAD OF MATHEMATICS 9 [facility] [id number] [place] [address] Nurse Practitioner Neurological Surgery 01/24/24 documented as of this encounter
--- OUTSIDE RECORDS SUMMARY | 2024-01-31 12:08 | XMS_ITS | Encounter Summary ---
Author Name Unknown Organization [facility] Address [address] [place] [address] Care Team Providers Care Drill Press Operator For Metal Name Role Phone Winston Villatoro OD Unavailable [phone] Denise Woodson Ra, APRN ARMATURE COIL WINDER Unavailable +- [phone] Denise Woodson Ra, APRN ARMATURE COIL WINDER Primary Care Provid er Usha Simon APRN ARMATURE COIL WINDER Unavailable +- [phone] Dangelo Salinas MD Unavailable Encounter Details Date Type Department Care Team (Late st Contact Info) Description 01/27/2024 [facility] Neurology Clinic [address] 3rd [place] [address] None Social History Tobacco Use Types Packs/Day Years [...] Miscellaneous Notes * Telephone Encounter - Shawna Wood - 01/27/2024 11:59 AM CDT Left Voicemail (1st Attempt) and Sent Mychart (1st Attempt) for the patient to call back and schedule the following: Appointment type: New Stroke Provider: Dr. Hoyos Return date: Next avail Specialty phone number: [phone] Additional appointment(s) needed: N/A Additonal Notes: In Basket documented in this encounter Plan of Treatment Upcoming Encounters Date Type Department Care Team (Late st Contact Info) Description 02/03/2024 8:45 AM CDT Therapy Visit [facility] [address] [phone] Denise Woodson Ra, CINDER BLOCK MASON ARMATURE COIL WINDER [address] [place], [place] [phone] Addis Rojas, PT [facility] [address] [place] [address] 02/04/2024 PRE VISIT [facility] Neurology [address] [phone] Raul Hoyos MD [address] [place] [id number] *-*INCOMING RECORDS*-* 02/04/2024 11:00 AM CDT Virtual Visit [facility] Neurology [address] [address] Raul Hoyos MD [address] [place] [address] 15[address] 02/06/2024 8:30 AM CDT Office Visit [facility] [address] [place] [address] Denise Woodson Ra, CINDER BLOCK MASON ARMATURE COIL WINDER [address] [place], [place] [phone] 02/07/2024 2:00 PM CDT Therapy Visit [address] [phone] Danya You PA [address] [place] [address] Charis Chacon SLP [facility] [address] [place] [address] 02/14/2024 12:45 PM CDT Therapy Visit [address] [phone] Danya You PA [address] [place] [address] Isabel Beaulieu OTR [address] [address] 02/14/2024 2:00 PM CDT Therapy Visit [address] [phone] Danya You, PA [address] [place] [address] Charis Chacon, JUAN [facility] [place] [address] 02/14/2024 2:45 PM CDT Therapy Visit [address] [phone] Danya You PA [address] [place] [address] Maria Eugenia Nguyen, PT 2155 [place] [address] 02/17/2024 2:45 PM CDT Therapy Visit [facility] 150 [place] [address] Danya You, PA [address] [place] [address] Aliya Kim, LANDFILL GAS PLANT FIELD TECHNICIAN [address] [facility], [address] [place] [address] 02/19/2024 3:00 PM CDT Therapy Visit [address] [phone] Danya You, PA [address] [address] Isabel Beaulieu, OTR [address] [address] 02/26/2024 2:15 PM CDT Therapy Visit [address] [phone] Danya You, PA [address] [place] [address] Charis Chacon, JUAN [facility] [address] [place] [address] 02/26/2024 3:00 PM CDT Therapy Visit [address] [phone] Danya You, PA [address] [address] Isabel Beaulieu, OTR [facility] 150 [place] [address] 02/27/2024 4:45 PM CDT [facility] [address] [place] [address] Danya You, PA [address] [address] Vanessa Duggan, PT 03/05/2024 1:30 PM CDT [facility] [address] [place] [address] Danya You, AMAIRANI [address] [address] Isabel Beaulieu, OTR [facility] 150 [place] [address] 03/05/2024 3:15 PM CDT [facility] 150 [place] [address] Danya You, PA [address] [address] Charis Chacon, JUAN [facility] [address] [place] [address] 03/05/2024 4:15 PM CDT [facility] 150 [place] [address] Danya You, PA [address] [address] Delicia George, PT [address] 2374[address] 03/11/2024 2:15 PM CDT Therapy Visit [address] [address] Danya You, PA [address] CHAR[address] [place] [address] Isabel Beaulieu OTJah [address] [address] 03/11/2024 3:00 PM CDT Therapy Visit [address] [phone] Danya You, PA [address] MB [address] [place] [address] Charis Chacon, JUAN [facility] [address] [place] [address] 03/11/2024 4:15 PM CDT Therapy Visit [address] [phone] Danya You, PA [address] MB [address] [place] [address] Delicia George, PT [facility] [address] [place] [address] 03/17/2024 1:30 PM CDT Therapy Visit [place] [address] [place] [address] Danya You, AMAIRANI [address] [address] Isabel Beaulieu, OTR [facility] 150 [place] [address] 03/17/2024 2:30 PM CDT Therapy Visit [address] [address] [place] 7030 [facility] [address] [address] Charis Chacon, JUAN [facility] [address] [place] [address] 03/17/2024 4:00 PM CDT Therapy Visit [address] [phone] Danya You, PA 6180 [facility] [address] [address] Delicia George, PT [facility] [address] [place] [address] 03/23/2024 10:30 AM CDT Office Visit [facility] [address] [place] [address] Denise Woodson Ra, CINDER BLOCK MASON [facility] [address] [place], [place] 164[address] 03/26/2024 1:30 PM CDT Therapy Visit [address] [place] [phone] Danya You PA [address] [place] [address] 169964 Isabel Beaulieu, OTR VALARIE [facility] 150 [place] [address] 03/26/2024 2:30 PM CDT [facility] [address] [place] [phone] Danya You, AMAIRANI [address] [address] Charis Chacon, [facility] [address] [place] [address] 03/26/2024 3:30 PM CDT [facility] 150 [place] [address] Danya You, PA [address] [address] Delicia George, PT [facility] [address] [place] [address] 04/02/2024 2:15 PM CDT Therapy [facility] [address] [place] [address] Danya You, AMAIRANI [address] [address] Isabel Beaulieu OTR [facility] 150 [place] [address] 04/02/2024 3:15 PM CDT Therapy Visit [address] [address] Danya You PA [address] [place] [address] Charis Chacon SLP [facility] [address] [place] [address] 04/02/2024 4:15 PM CDT Therapy Visit [address] [phone] Danya You PA [address] [place] [address] Delicia George, PT [facility] [address] [place] [address] 04/09/2024 3:15 PM CDT Therapy Visit [address] 267[address] Danya You PA [address] [place] [address] Charis Chacon, JUAN [facility] [address] [place] [address] 04/09/2024 4:15 PM CDT Therapy Visit [address] [address] Danya You PA [address] [place] [address] Delicia George, PT [facility] [address] [place] [address] 04/15/2024 9:30 AM CDT Therapy Visit [address] [address] Danya You, PA 2450 [facility] JIE [address] [address] Danya Restrepo, LANDFILL G[employer] PLANT FIELD TECHNICIAN 04/23/2024 2:30 PM CDT Therapy Visit [address] [address] Danya You, PA 2450 [facility] JIE [address] [address] Charis Chacon, JUAN [facility] [address] [place] [address] 06/23/2024 11:00 AM CDT Virtual Visit [facility] Mental Health & Addiction [address] [address] Kristin Vázquez, [facility] 4241 [place] [address] 06/30/2024 2:00 PM CDT Virtual Visit [facility] 6401 [place] [address] Kristin Vázquez, [facility] [address] [place] [address] documented as of this encounter Visit Diagnoses Not on filedocumented in this encounter Additional Health Concerns Assessment Noted Time PHQ-9 Depression Total Score: 0 06/23/20 21 4:11 PM CDT documented as of this encounter Care Teams Drill Press Operator For Metal Relationship Specialty Start Date End Date Winston Villatoro OD [facility] [place] [address] [place] [address] PCP - Ophthalmology Ophthalmology 02/11/13 Denise Woodson Ra CINDER BLOCK MASON ARMATURE COIL WINDER [address] [address] [facility] [address] PCP - General Family Practice 09/21/20 Denise Woodson Ra, APRN ARMATURE COIL WINDER [address] [address] [facility] [address] Assigned PCP 07/17/20 Usha Simon APRN ARMATURE COIL WINDER 909 [facility] [id number] [place] [address] Nurse Practitioner Neurological Surgery 01/24/24 Dangelo Salinas MD [address] [place] [address] Neurology 01/27/24 documented as of this encounter
--- OUTSIDE RECORDS SUMMARY | 2024-01-31 12:08 | XMS_ITS | Encounter Summary ---
Author Name Unknown Organization [facility] Address [address] [place] [address] Care Team Providers Care Domestic Laundry Worker Name Role Phone Winston Villatoro OD Unavailable [phone] Denise Woodson Ra, APRN CRUTCHER HELPER Unavailable +- [phone] Denise Woodson Ra, APRN CRUTCHER HELPER Primary Care Provid er Usha Simon APRN CRUTCHER HELPER Unavailable [phone] Dangelo Salinas MD Unavailable Reason for Visit * Reason Onset Date Comments Appointment 01/23/2024 Referral-Stroke hospital follow up Encounter Details Date Type Department Care Team (Late st Contact Info) Description 01/23/2024 [facility] Neurology Clinic [address] 3rd [place] [address] None Appointment (Referral-Stroke hospital follow up) Social History Tobacco Use Types Packs/Day Years [...] encounter Miscellaneous Notes * Telephone Encounter - DanyelleNani - 01/23/2024 1:33 PM CDT [facility] Call Center Phone Message May a detailed message be left on voicemail: yes Reason for Call: Appointment Intake Referring Provider Name: Dr. Delisa Manuel Ur 5 Med Surg Diagnosis and/or Symptoms: Stroke Please review referral for Stroke as no HFU orders are entered for Stroke follow up. Patient discharged on 01/22/24 from [facility] and is now in Acute Rehab Unit. Action Taken: Message routed to: [facility] Neurology Travel Screening: Not Applicable documented in this encounter Plan of Treatment Upcoming Encounters Date Type Department Care Team (Late st Contact Info) Description 02/03/2024 8:45 AM CDT Therapy Visit [facility] Rehabilitation Services [address] [address] Denise Woodson Ra, CORRECTIONAL PROGRAM OFFICER CRUTCHER HELPER [address] [place] [address] Addis Rojas, PT [facility] [address] [place] [address] 02/04/2024 PRE VISIT [facility] Neurology [address] [phone] Raul Hoyos MD [address] [place] [address]34915 *-*INCOMING RECORDS*-* 02/04/2024 11:00 AM CDT Virtual Visit [facility] Neurology [address] [phone] Raul Hoyos MD [address] [place] [address] 909005 02/06/2024 8:30 AM CDT Office Visit [facility] [address] [place] [address] Denise Woodson Ra, CORRECTIONAL PROGRAM OFFICER CRUTCHER HELPER [address] [place], [place] 5020668 02/07/2024 2:00 PM CDT Therapy Visit [address] [phone] Danya You, PA 2450 [facility] 213 [place] [address] Charis Chacon, JUAN [facility] [address] [place], [place] 595027 02/14/2024 12:45 PM CDT Therapy Visit [address] [address] Danya You, PA 2450 [facility] 213 [place], [place] 523884 Isabel Beaulieu, OTR [address] [address] 02/14/2024 2:00 PM CDT Therapy Visit [address] [phone] Danya You, PA 2450 [facility] [address] [place], [place] 254454 Charis Chacon, [facility] [address] [place], [place] 568787 02/14/2024 2:45 PM CDT Therapy Visit [address] [address] Danya You, PA [address] [place] [address] [place] [address] Maria Eugenia Nguyen, PT 2155 [place] [address] 02/17/2024 2:45 PM CDT Therapy Visit [facility] 150 [place] [address] Danya You, AMAIRANI 2450 [facility] 213 [place] [address] Aliya Kim, RN CLINICAL RESOURCE [address] [facility] 200 [place] [address] 02/19/2024 3:00 PM CDT Therapy Visit [facility] 150 [place] [address] Danya You, PA 2450 [facility] [address] [address] Isabel Beaulieu, OTR [facility] 150 [place] [address] 02/26/2024 2:15 PM CDT Therapy Visit [facility] 150 [place] [address] Danya You, PA 2450 [facility] [address] [address] Charis Chacon, J[facility]AN [facility] [address] [place] [address] 02/26/2024 3:00 PM CDT Therapy Visit [facility] 150 [facility] [place] [address] Danya You, AMAIRANI [address] [place] [address] Isabel Beaulieu, [facility]TR [facility] 150 [place] [address] 02/27/2024 4:45 PM CDT Therapy Visit [facility] 150 [place] [address] Danya You, PA [address] [place] [address] Vanessa Duggan, PT 03/05/2024 1:30 PM CDT Therapy Visit [facility] 150 [place] [address] Danya You PA [address] [place] [address] Isabel Beaulieu, OTR [facility] 150 [place] [address] 03/05/2024 3:15 PM CDT Therapy Visit [facility] 150 [place] [address] Danya You PA [address] [place] [address] Charis Chacon, J[facility]AN [facility] [address] [place] [address] 03/05/2024 4:15 PM CDT Therapy Visit [facility] 150 [place] [address] Danya You, AMAIRANI 2450 [facility] [address] [address] Delicia George, PT [address] [address] 03/11/2024 2:15 PM CDT Therapy Visit [facility] 150 [place] [address] Danya You, PA [address] [address] Isabel Beaulieu OTR [address] [address] 03/11/2024 3:00 PM CDT Therapy Visit [address] [phone] Danya You, PA [facility] [address] [address] Charis Chacon, [facility] [address] [place] [address] 03/11/2024 4:15 PM CDT Therapy Visit [address] [phone] Danya You, PA [facility] [address] [address] Delicia George, PT [address] [place] [address] 03/17/2024 1:30 PM CDT Therapy Visit [address] [phone] [place] [address] [place] [address] [address] Isabel Beaulieu, OTR [address] [address] 03/17/2024 2:30 PM CDT Therapy Visit [address] [phone] Danya You, PA [facility] [address] [address] Charis Chacon, [facility] [address] [place] [address] 03/17/2024 4:00 PM CDT Therapy Visit [address] [address] Danya You, PA [address] [place] [address] Delicia George, PT [facility] [address] [address] 03/23/2024 10:30 AM CDT Office Visit [facility] [id number] [place] [address] Denise Woodson Ra, CORRECTIONAL PROGRAM OFFICER [facility] [address] [place] [address] 03/26/2024 1:30 PM CDT Therapy Visit [address] [phone] Danya You, [place] [address] [place] [address] Isabel Beaulieu, OTR [address] [address] 03/26/2024 2:30 PM CDT Therapy Visit [address] [phone] Danya You, PA [address] [place] [address] Charis Chacon, [facility] [address] [place] [address] 03/26/2024 3:30 PM CDT Therapy Visit [address] [address] Danya You, PA 2450 [facility] [address] [address] Delicia George, PT [facility] [address] [place] [address] 04/02/2024 2:15 PM CDT Therapy Visit [address] [phone] Danya You, PA [address] [address] Isabel Beaulieu, OTR [address] [address] 04/02/2024 3:15 PM CDT Therapy Visit [address] [phone] Danya You, PA 2450 [facility] [address] [address] Charis Chacon, [facility] [address] [place] [address] 04/02/2024 4:15 PM CDT Therapy Visit [address] [phone] Danya You, PA [address] [place] [address] [address] Delicia George, PT [facility] [address] [place] [address] 04/09/2024 3:15 PM CDT Therapy Visit [address] [phone] Danya You, PA [address] [address] Charis Chacon, [facility] [address] [place] [address] 04/09/2024 4:15 PM CDT Therapy Visit [address] [place] [address] Danya You, PA [address] [place] [address] Delicia George, PT [facility] [address] [place] [address] 04/15/2024 9:30 AM CDT Therapy Visit [address] [phone] Danya You, PA [address] [address] Danya Restrepo, RN CLINICAL RESOURCE 04/23/2024 2:30 PM CDT Therapy Visit [address] [address] Danya You, PA [address] [address] Charis Chacon, [facility] [address] [place] [address] 06/23/2024 11:00 AM CDT Virtual Visit [facility] [address] [facility] [place] [address] Kristin Vázquez, [facility] 6[address] [facility] [place] [address] 06/30/2024 2:00 PM CDT Virtual Visit [facility] [address] [facility] [place] [phone] Kristin Vázquez, [facility] 6[address] [facility] PRIMO CORTEZ [address] documented as of this encounter Visit Diagnoses Not on filedocumented in this encounter Additional Health Concerns Assessment Noted Time PHQ-9 Depression Total Score: 0 06/23/20 21 4:11 PM CDT documented as of this encounter Care Teams Domestic Laundry Worker Relationship Specialty Start Date End Date Winston Villatoro, [facility] [address] [place] [address] PCP - Ophthalmology Ophthalmology 02/11/13 Denise Woodson Ra, APRN CRUTCHER HELPER [address] [place] [address] PCP - General Family Practice 09/21/20 eDnise Woodson Ra, APRN CRUTCHER HELPER [address] [place] [address] Assigned PCP 07/17/20 Usha Simon APRN CRUTCHER HELPER 9 [facility] [place] [address] Nurse Practitioner Neurological Surgery 01/24/24 Dangelo Salinas MD [address] [place] [address] Neurology 01/27/24 documented as of this encounter
--- OUTSIDE RECORDS SUMMARY | 2024-01-31 12:08 | XMS_ITS | Encounter Summary ---
Author Name Unknown Organization [place] Address [address] [place] [id number] Care Team Providers Care Wine Fermenter Name Role Phone Winston Villatoro OD Unavailable [phone] Denise Woodson Ra, APRN [employer]ER Unavailable [phone] Denise Woodson Ra, APRN [employer] Primary Care Provid er Usha Simon APRN [employer]ER Unavailable [phone]- [phone] Reason for Referral * Mental Health Outpatient (Routine: Next available opening) - Pending Review Specialty Diagnoses / Procedures Referred By Nila shah Referred To Contact Behavioral Health Diagnoses Mild recurrent major depression (H24) Robin Sibley MD [address] [place] [address] Referral ID Status Reason Start Date Expiration Date V isits Requested Visits Authorized [id number] Pending Review 01/26/2024 01/25/2025 1 1 Question Answer Services: Assess/Evaluate for appropriate service (non-medication assessment) My Clinical Question Is: patient intersted in outpatient health psychology post rehab discharge Scheduling Instructions: [facility] will call you to coordinate your care as prescribed by your provider. If you don't hear from a volunteer patient representative within 2 business days, please call . Is this referral for Insurance purposes only? (Only select yes if the patient has already been scheduled at an external location. If yes is selected, the referral will NOT reoute to scheduling). No Comments Please be aware that coverage of these services is subject to the terms and limitations of your health insurance plan. Call member services at your health plan with any benefit or coverage questions. [facility] will call you to coordinate your care as prescribed by your provider. If you don't hear from a volunteer patient representative within 2 business days, please call . * Therapeutic Services (Routine) - Pending Review Specialty Diagnoses / Procedures Referred By Contac t Referred To Contact Diagnoses Cerebrovascular accident (CVA), unspecified mechanism (H) Danya You PA [address] [place] [id number] Referral ID Status Reason Start Date Expiration Date V isits Requested Visits Authorized [id number] Pending Review 01/24/2024 01/23/2025 1 1 Question Answer Course of Action: Evaluation and Treatment Speech Treatment Diagnosis: Cognitive Deficits Specialty Services: Per Associated Diagnosis Scheduling Instructions: [facility] will call you to coordinate your care as prescribed by your provider. If you don't hear from a volunteer patient representative within 2 business days, please call . Comments Please be aware that coverage of these services is subject to the terms and limitations of your health insurance plan. Call member services at your health plan with any benefit or coverage questions. [facility] will call you to coordinate your care as prescribed by your provider. If you don't hear from a volunteer patient representative within 2 business days, please call . * Occupational Therapy (Routine) - Pending Review Specialty Diagnoses / Procedures Referred By Contac t Referred To Contact Diagnoses Cerebrovascular accident (CVA), unspecified mechanism (H) Danya You PA [address] [place] [id number] Referral ID Status Reason Start Date Expiration Date V isits Requested Visits Authorized [id number] Pending Review 01/24/2024 01/23/2025 1 1 Question Answer Course of Action: Evaluation and Treatment Specialty Services: Per Associated Diagnosis Scheduling Instructions: [facility] will call you to coordinate your care as prescribed by your provider. If you don't hear from a volunteer patient representative within 2 business days, please call . Comments Please be aware that coverage of these services is subject to the terms and limitations of your health insurance plan. Call member services at your health plan with any benefit or coverage questions. [facility] will call you to coordinate your care as prescribed by your provider. If you don't hear from a volunteer patient representative within 2 business days, please call . * Rehab Therapy Integrated Services (Routine) - Authorized Specialty Diagnoses / Procedures Referred By Nila shah Referred To Contact Diagnoses Cerebrovascular accident (CVA), unspecified mechanism (H) [address] [address] Referral ID Status Reason Start Date Expiration Date V isits Requested Visits Authorized [id number] Authorized 09/16/2023 09/15/2024 365 365 Question Answer Course of Action: Evaluation and Treatment Specialty Services: Per Associated Diagnosis Scheduling Instructions: [facility] will call you to coordinate your care as prescribed by your provider. If you don't hear from a volunteer patient representative within 2 business days, please call . Comments Please be aware that coverage of these services is subject to the terms and limitations of your health insurance plan. Call member services at your health plan with any benefit or coverage questions. [facility] will call you to coordinate your care as prescribed by your provider. If you don't hear from a volunteer patient representative within 2 business days, please call . Reason for Visit * Auth/Cert (Routine) Specialty Diagnoses / Procedures Referred By Nila shah Referred To Contact Rehabilitation Diagnoses 01.2 Right body, left brain stroke, multiple acute ischemic infarcts in the frontal and parietal lobes, left supramarginal gyrus following angiogram [facility] [address] [address] Referral ID Status Reason Start Date Expiration Date Visits Re quested Visits Authorized [id number] 1 1 Encounter Details Date Type Department Care Team (Latest Contact Info) Description 01/22/2024 2:38 PM CDT - 01/26/2024 12:31 PM CDT Hospital Encounter [address] [address] Parminder Del Angel MD [address] [place], [place] [address] Cerebrovascular accident (CVA), unspecified mechanism (H) (Primary Dx); Fibromyalgia; Pain of right upper extremity; Generalized anxiety disorder; History of seizure; Mild recurrent major depression (H24) Discharge Disposition: Home or Self Care Social History Tobacco Use Types Packs/Day Years [...] Sign Reading Time Taken Comments Blood Pressure 120/64 01/26/2024 7:00 AM CDT Pulse 70 01/26/2024 7:00 AM CDT Temperature 36.2 ??C (97.2 ??F) 01/26/2024 8:18 AM CD T Respiratory Rate 18 01/26/2024 7:00 AM CDT Oxygen Saturation 97% 01/26/2024 7:00 AM CDT Inhaled Oxygen Concentration - - Weight 97.4 kg (214 lb 11.2 oz) 01/22/2024 2:45 PM CDT Height 172.7 cm (5' 8) 01/22/2024 2:45 PM CDT Body Mass Index 32.65 01/22/2024 2:45 PM CDT documented in this encounter Discharge Summaries * Robin Sibley MD - 01/26/2024 12:14 PM CDT Images from the original note were not included. 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, likely procedural complication # Right sided numbness, weakness # Headaches, frontal # Seizure # # AV fistula, left sigmoid dural # Pulsatile tinnitus # RUE pain # Fibromyalgia # Anxiety # Depression # Psychosocial stressors # Insomnia # History of ASD, repaired # Seasonal allergies # Constipation # Asthma BRIEF SUMMARY Alcon Zamora is a 48 year old female with past medical history of Lizy-Danlos syndrome, mild persistent asthma, anxiety and depression, and fibromyalgia who presented for a planned catheter angiogram at [facility] for left sided pulsatile tinnitus, following procedure found to have multiple acute ischemic infarcts of the frontal lobes, parietal lobes and left supramarginal gyrus after procedure with associated right sided weakness and numbness, likely embolic in nature secondary to procedure complication, complicated by post-stroke seizures, admitted on 01/17/2024 at [facility] for acute inpatient rehabilitation. Discharged in setting of acute mental status change, concern for seizure, workup felt not consistent with seizure, episodes felt related to fatigue/stress. Functionally making progress with ongoing strength, balance, activity tolerance, and cognition below baseline, plan fo rhome with outpatient PT/OT/[employer]. REHABILITATION COURSE Current Status: Bed Mobility: mod ind Transfer: Imtiaz with FWW, SBA without AD Gait: mod ind in room with walker during the day (SBA at night or in halls), CGA-SBA without AD Stairs: SBA with B rails, reciprocal pattern 12x6'' steps Balance: Impaired dynamic balance, compensates well with walker; able to stand without UE support to manage clothes at toilet but needs CGA-Dania for ambulation without assistive device OT: ADLs: Mobility: Mod I FWW room daytime, SBA Ax1 evening/NOC. Grooming: Mod I wash hands. Oral cares - NT. Dressing: Mod I dressing. Bathing: NT Toileting: Mod I with FWW and grab bar. 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 Recommend transportation A. Vision/Cognition: Glasses. Noted undershoot with R saccades and 1x break in horizontal pursuits; endorses diplopia with convergence ~ 3 inch distance and at far distance. Concern for potential peripheral vision issues impairing anchoring/spatial awareness in environment. Cognitively, pt self-reports identifies as neurodivergent; slower processing, distractible in noisy environments. [employer]: Current Status: Hearing: WFL Vision: Glasses- reporting vision blurry Communication: Motor speech, language intact Cognition: Mild cognitive impairment- attention and reasoning/problem solving. Swallow: Regular solids/thin liquids (0). Not formally evaluated on ARU. MEDICAL COURSE # Cerebral infarct of the frontal lobes, parietal lobes, left supramarginal gyrus, embolic in nature, likely procedural complication # Right sided numbness, weakness # Headaches, frontal Patient was seen by [facility] interventional neuroradiology for diagnostic catheter cerebral angiogram for left sided pulsatile tinnitus 01/09/24. After the procedure, patient had a severe headache, episode of emesis, new onset right arm weakness and numbness, was found to have multiple acute ischemic infarcts of the frontal lobes, parietal lobes and left supramarginal gyrus, neurology believed embolic in nature, likely procedural complication - continue PT, OT, [employer] as outpatient - Secondary stroke ppx: - BP: Goal normotensive. - currently at goal without meds - Cholesterol: Rosuvastatin 20 qhs - Blood glucose: normoglycemic, no hx of DM - AC/AP: ASA 325 mg qday per neuro - Stroke Education with patient and family during stay - tylenol: 1000 mg TID # Seizure Post-stroke seizures noted 01/13 early AM at acute hospital, given Keppra load with IV ativan to abort seizure, neurology recommended continuing Keppra 750 BID and follow up outpatient. - Keppra 750 mg BID - Neurology outpatient follow up @ discharge - Outpatient hypercoagulation workup per neurology # concern for seizure Episodes 5/6 with decreased level of alertness, rapid eye movement, and teeth grinding. Transferredto hospital for evaluation, seen by neurology: EEG 01/20 reassuring, MRI 5/6 low suspicion for seizure, felt related to fatigue/ over exertion. -encourage consistent rest/ breaks -encouraged to complete calming techniques, atarax prn # # AV fistula, left sigmoid dural # Pulsatile tinnitus Weeks prior to admission, patient had pulsatile tinnitus that lead to cerebral angiogram 01/08, confirmed left sigmoid dural AV fistula. Planned to follow with [facility] for repair but would like to transition cares to [facility]. - [facility] IR referral at discharge # RUE pain # Fibromyalgia Reports new aches in her right upper extremity which feel similar to past fibromyalgia flares, feelmuscular and also related to being bedridden. Relieved by massage. No other concerning symptoms with this. - Scheduled APAP - Lidocaine patches PRN # Anxiety # Depression # Psychosocial stressors Reports understandable stress given recent events. Denied SI/HI. 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 - Hydroxyzine PRN, psychology follow up as outpatient (ordered) # History of ASD, repaired: Per chart, has Amplatz septal occluder device in place. # Insomnia - TELEPHONE LINEMAN Atarax 50 mg at bedtime - TELEPHONE LINEMAN Trazodone 100 mg at bedtime # Constipation - TELEPHONE LINEMAN Magnesium oxide 400 mg at bedtime - PRN Senna # Seasonal allergies - Zyrtec 10 mg qday # Sleep - Trazodone 100 mg at bedtime - evaluate need during rehab stay # Asthma - TELEPHONE LINEMAN Breo Ellipta qday DISCHARGE MEDICATIONS Current Discharge Medication List CONTINUE these medications which have CHANGED Details acetaminophen (TYLENOL) 500 MG tablet Take 1-2 tablets (500-1,000 mg) by mouth 3 times daily as needed for mild pain or headaches Associated Diagnoses: Fibromyalgia; Pain of right upper extremity aspirin (ASA) 325 MG EC tablet Take 1 tablet (325 mg) by mouth daily Qty: 30 tablet, Refills: 0 Associated Diagnoses: Cerebrovascular accident (CVA), unspecified mechanism (H) hydrOXYzine HCl (ATARAX) 50 MG tablet Take 0.5-1 tablets (25-50 mg) by mouth every 6 hours as needed for anxiety or other (sleep) Qty: 60 tablet, Refills: 0 Associated Diagnoses: Generalized anxiety disorder levETIRAcetam (KEPPRA) 750 MG tablet Take 1 tablet (750 mg) by mouth 2 times daily Qty: 60 tablet, Refills: 0 Associated Diagnoses: History of seizure magnesium oxide 200 MG TABS Ok to take magnesium supplement of your preference rosuvastatin (CRESTOR) 20 MG tablet Take 1 tablet (20 mg) by mouth at bedtime Qty: 30 tablet, Refills: 0 Associated Diagnoses: Cerebrovascular accident (CVA), unspecified mechanism (H) CONTINUE these medications which have NOT CHANGED Details albuterol (PROAIR HFA/PROVENTIL HFA/VENTOLIN HFA) 108 (90 Base) MCG/ACT inhaler Inhale 2 puffs intothe lungs every 4 hours as needed for shortness of breath / dyspnea or wheezing Qty: 1 Inhaler, Refills: 3 Comments: Pharmacy may dispense brand covered by insurance (Proair, or proventil or ventolin or generic albuterol inhaler) Pt will call when needed. Associated Diagnoses: Moderate persistent asthma without complication calcium carbonate (TUMS) 500 MG chewable tablet Take 1 tablet (500 mg) by mouth 4 times daily as needed for heartburn Associated Diagnoses: Nausea cetirizine (ZYRTEC) 10 MG tablet Take 10 mg by mouth daily Lidocaine (LIDOCARE) 4 % Patch Place 1 patch onto the skin every 24 hours To prevent lidocaine toxicity, patient should be patch free for 12 hrs daily. Associated Diagnoses: Fibromyalgia; Pain of right upper extremity methyl salicylate-menthol (ICY HOT) ointment Apply topically every 6 hours as needed (pain) Associated Diagnoses: Fibromyalgia; Pain of right upper extremity psyllium (METAMUCIL) 28.3 % packet Take 1 packet by mouth daily traZODone (DESYREL) 50 MG tablet Take 2 tablets (100 mg) by mouth At Bedtime Qty: 180 tablet, Refills: 3 Associated Diagnoses: Insomnia, unspecified type BREO ELLIPTA 200-25 MCG/INH Inhaler INHALE 1 PUFF INTO THE LUNGS DAILY Qty: 3 each, Refills: 1 Associated Diagnoses: Moderate persistent asthma without complication senna-docusate (SENOKOT-S/PERICOLACE) 8.6-50 MG tablet Take 2 tablets by mouth 2 times daily as needed for constipation Associated Diagnoses: Other constipation STOP taking these medications celecoxib (CELEBREX) 100 MG capsule Comments: Reason for Stopping: diclofenac (VOLTAREN) 1 % topical gel Comments: Reason for Stopping: enoxaparin ANTICOAGULANT (LOVENOX) 40 MG/0.4ML syringe Comments: Reason for Stopping: ondansetron (ZOFRAN ODT) 4 MG ODT tab Comments: Reason for Stopping: oxyCODONE (ROXICODONE) 5 MG tablet Comments: Reason for Stopping: DISCHARGE INSTRUCTIONS AND FOLLOW UP Discharge Procedure Orders Physical Therapy Leather Cartridge Belt Maker Referral Standing Status: Future Referral Priority: Routine Referral Type: Rehab Therapy Physical Therapy Number of Visits Requested: 1 Occupational Therapy Leather [employer] Belt Maker Referral Standing Status: Future Referral Priority: Routine Referral Type: Occupational Therapy Number of Visits Requested: 1 Speech Therapy Leather Cartridge Belt Maker Referral Standing Status: Future Referral Priority: Routine Referral Type: Therapeutic Services Number of Visits Requested: 1 Adult Mental Health Leather Cart[employer] Belt Maker Referral Standing Status: Future Referral Priority: Routine: Next available opening Referral Type: Mental Health Outpatient Number of Visits Requested: 1 Reason for your hospital stay Order Comments: Admitted for rehabilitation following stroke. Activity Order Comments: Your activity upon discharge: activity as tolerated up independently. Family to assist with transportation. Return to work pending ongoing therapy assessments of readiness. Order Specific Question Answer Comments Is discharge order? Yes Adult [facility] Follow-up and recommended labs and tests Order Comments: Follow up with primary care provider, Denise Woodson, within 7 days for hospital follow- up. Follow up stroke with stroke neurology Follow up dural av fistula with neuro interventional Appointments on [place] and/or [facility] (with [facility] or [facility] provider or service). Call [phone] if you haven't heard regarding these appointments within 7 days of discharge. Full Code Order Specific Question Answer Comments Code status determined by: Discussion with patient/ legal decision maker Diet Order Comments: Follow this diet upon discharge: Combination Diet Regular Diet Order Specific Question Answer Comments Is discharge order? Yes PHYSICAL EXAMINATION Most recent Vital Signs: Vitals: 01/25/24 0740 01/25/24 1606 01/26/24 0700 01/26/24 0818 BP: 124/72 123/64 120/64 BP Location: Left arm Right arm Right arm Patient Position: Semi-Gerardo's Cuff Size: Adult Regular Pulse: 71 68 70 Resp: 16 18 Temp: 97.4 ??F (36.3 ??C) 97.8 ??F (36.6 ??C) 97.2 ??F (36.2 ??C) TempSrc: Oral Oral Oral SpO2: 99% 99% 97% Weight: Height: Gen: No acute distress, cooperative. CV: Regular rate, rhythm, no murmurs. Respiratory: CTAB, no wheezing, crackles or rhonchi. Breathing comfortably on room air. Abd: Bowel sounds present. Soft, non-distended, non-tender to palpation in four quadrants. Extremities: Calves warm, soft, non-tender bilaterally. Skin: No signs of trauma / abrasions on exposed skin. Neuromuscular: Speech fluent & comprehensible. Cranial Nerves: grossly normal - 2nd CN: Pupils equal, round, reactive to light and accomodation. and visual thomas intact to confrontation. - 3rd,4th,6th CN: EOMI, appropriate pupillary responses - 5th CN: facial sensation intact - 7th CN: face symmetrical - 8th CN: functional hearing bilaterally - 9th, 10th CN: palate elevates symmetrically - 11th CN: sternocleidomastoids and trapezii strong - 12th CN: tongue midline and without fasciculations Sensory: Normal to light touch in bilateral upper and lower extremities Motor: Right Left Shoulder abd 5/5 5/5 Elbow Flexion 5/5 5/5 Elbow Extension 5/5 5/5 Wrist Extension 5/5 5/5 Wrist Flexion 5/5 5/5 FDP 5/5 5/5 Abd dig. Minimi 5/5 5/5 Hip Flexion 5/5 5/5 Knee Extension 5/5 5/5 Knee Flexion 5/5 5/5 Dorsiflexion 5/5 5/5 EHL 5/5 5/5 Plantarflexion 5/5 5/5 Tone per Modified Diony Scale: none Abnormal movements: None Coordination: No dysmetria on finger to nose b/l 60 minutes spent in discharge, including >50% in counseling and coordination of care, medicationreview and plan of care recommended on follow up. Patient was evaluated on day of discharge by attending physician, Parminder Del Angel MD, who agrees with plan of care. Discharge summary was forwarded to Denise Woodson Ra (PCP) at the time of discharge, so as to bridge from hospital to outpatient care. It was our pleasure to care for Alcon Zamora during this hospitalization. Please do not hesitate to contact me should there be questions regarding the hospital course or discharge plan. Note partially prepared by Danya You PA-C Discussed the patient's case with my attending, Dr. Robert MD , who agrees with the following above. Robin Sibley, PGY-3 Physical Medicine & Rehabilitation Associated attestation - Johnathon Jones MD - 01/26/2024 12:35 PM CDT Physician Attestation I saw and evaluated this patient prior to discharge. I discussed the patient with the resident/fellow and agree with plan of care as documented in the note. I personally reviewed vital signs, medications, and labs. I personally spent 35 minutes on discharge activities. Johnathon Jones MD Date of Service (when I saw the patient): 01/26/24 * Maryse Solis RN - 01/22/2024 2:05 PM CDT DISCHARGE SUMMARY Pt discharging to: Acute Rehab Unit Transportation: Wheelchair AVS not appropriate at this time; Continue to follow plan of care; Pt has no further questions. Medications administered up until the time of transport. No further questions. Belongings returned: Yes, ensured all belongings packed and sent with pt. No items in security. Comments: Escorted safely to Acute Rehab Unit. Pt left at 1415 documented in this encounter Discharge Instructions * Discharge Instructions* Johnathon Jones MD - 01/22/2024 2:47 PM CDT Images from the original note were not included. Pcp follow up hospitalization You are scheduled to see Dr. Woodson on 02/06/2024 at 8:10AM. Address [id number] [place] neurology- follow up stroke & seizure You will be contacted to schedule follow up. 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 Address [address] [facility] [place] [employer] [employer] [email or web address].org Resource Facilitation is a free, two-year telephone support program provides education and connection to supports and services to assist people throughout [place] in navigating life after brain injury. Participants receive scheduled calls over a two-year period to help problem-solve issues and identify resources to help them transition back to family life, work, school, and the community while achieving the greatest level of independence as possible. Individuals can be referred by a professional or self-refer at any time. Types of services that Stroke Resource Facilitation offers include: Emotional support in coping with a ???new normal??? Finding mental health support and counselors who understand brain injury and stroke Finding a support group Finding or re-connecting to rehabilitation services Finding where and how to get a brain injury assessed Finding or re-connecting with a primary care physician Supporting caregivers by connecting them with resources Education about diagnosis and symptoms - ???Is this normal?? Helping educate family and loved ones of the survivor???s ???invisible?? symptoms Figuring out the logistics of returning to work, vocational rehab and understanding ADA rights If not going back to work, support in finding meaningful ways to structure your day and exploring volunteer options Coaching on navigation the federal, [facility] and disability service system with additional support and conference calls as needed Help finding appropriate legal support for appealing and navigating Social Security Disability, providing advocacy on the individual???s behalf as needed and connecting with cost effective alternatives to hydropulper operator as needed Supporting parents/students with how to discuss return to school and sports with educators and connecting to a TBI specialist or parent advocate group if needed Connecting to addiction (alcohol/drug/gambling/smoking) support and treatment services Support with creative problem solving to life barriers. *These are just a few examples of common things that Resource Facilitation can help with. They are not limited to what is listed here so if you are curious if they can help, just ask. Call us at [phone] or [phone]. documented in this encounter Medications at Time of Discharge Medication Sig Dispensed Refills Start Date End Date acetaminophen (TYLENOL) 500 MG tabletIndications:Fibr omyalgia,Pain of right upper extremity Take 1-2 tablets (500-1,000 mg) by mouth 3 times daily as needed for mild pain or headaches 01/24/2024 albuterol (PROAIR HFA/PROVENTIL HFA/VENTOLIN HFA) 108 (90 Base) MCG/ACT inhalerIndications:Mod erate persistent asthma without complication Inhale 2 puffs into the lungs every 4 hours as needed for shortness of breath / dyspnea or wheezing 1 Inhaler 3 07/13/2020 aspirin (ASA) 325 MG EC tabletIndications:Cere brovascular accident (CVA), unspecified mechanism (H) Take 1 tablet (325 mg) by mouth daily 30 tablet 01/24/2024 BREO ELLIPTA 200-25 MCG/INH InhalerIndications:Mod erate persistent asthma without complication INHALE 1 PUFF INTO THE LUNGS DAILY 3 each 1 02/22/2022 calcium carbonate (TUMS) 500 MG chewable tabletIndications:Naus ea Take 1 tablet (500 mg) by mouth 4 times daily as needed for heartburn 01/22/2024 cetirizine (ZYRTEC) 10 MG tablet Take 10 mg by mouth daily hydrOXYzine HCl (ATARAX) 50 MG tabletIndications:Gene ralized anxiety disorder Take 0.5-1 tablets (25-50 mg) by mouth every 6 hours as needed for anxiety or other (sleep) 60 tablet 01/24/2024 levETIRAcetam (KEPPRA) 750 MG tabletIndications:Hist ory of seizure Take 1 tablet (750 mg) by mouth 2 times daily 60 tablet 01/24/2024 Lidocaine (LIDOCARE) 4 % PatchIndications:Fibro myalgia,Pain of right upper extremity Place 1 patch onto the skin every 24 hours To prevent lidocaine toxicity, patient should be patch free for 12 hrs daily. 01/22/2024 magnesium oxide 200 MG TABS Ok to take magnesium supplement of your preference 01/24/2024 methyl salicylate-menthol (ICY HOT) ointmentIndications:Fi bromyalgia,Pain of right upper extremity Apply topically every 6 hours as needed (pain) 01/22/2024 psyllium (METAMUCIL) 28.3 % packet Take 1 packet by mouth daily rosuvastatin (CRESTOR) 20 MG tabletIndications:Cere brovascular accident (CVA), unspecified mechanism (H) Take 1 tablet (20 mg) by mouth at bedtime 30 tablet 01/24/2024 senna-docusate (SENOKOT-S/PERICOLACE) 8.6-50 MG tabletIndications:Othe r constipation Take 2 tablets by mouth 2 times daily as needed for constipation 01/22/2024 traZODone (DESYREL) 50 MG tabletIndications:Inso mnia, unspecified type Take 2 tablets (100 mg) by mouth At Bedtime 180 tablet 3 07/27/2021 documented as of this encounter Progress Notes * Stephanie Paula, OTR - 01/26/2024 11:42 AM CDT Occupational Therapy Discharge Summary Reason for therapy discharge: Discharged to home with outpatient therapy. Progress towards therapy goal(s). See goals on Care Plan in [facility] electronic health record for goal details. Goals met Therapy recommendation(s): Continued therapy is recommended. Rationale/Recommendations: Return to work and return to driving. Summary: Alcon Zamora is a 48 year old female with past medical history of Lizy-Danlos syndrome,mild persistent asthma, anxiety and depression, and fibromyalgia who presented for a planned catheter angiogram at [facility] for left sided pulsatile tinnitus, following procedure found to h ave multiple acute ischemic infarcts of the frontal lobes, parietal lobes and left supramarginal gyrus after procedure with associated right sided weakness and numbness, likely embolic in nature secondary to procedure complication, complicated by post-stroke seizures, admitted on 01/17/2024 at [facility] for acute inpatient rehabilitation. Discharge Plan: Home alone daytime, IADL A evening family; OP OT Precautions: fall, vision, RUE sensory deficit Current Status: ADLs: Mobility: Ind Grooming: Ind Dressing: Ind Bathing: Mod I with ETB and grab bars Toileting: Ind with grab bar IADLs: Ind with pet care and light kitchen tasks. 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 Recommend transportation A. Vision/Cognition: Glasses. Noted undershoot with R saccades and 1x break in horizontal pursuits; endorses diplopia with convergence ~ 3 inch distance and at far distance. Concern for potential peripheral vision issues impairing anchoring/spatial awareness in environment. Mild executive function deficits DME: Pt reported plan to order shower chair and install shower grab bars. Family training: Completed Thursday 01/25 prior to discharge in PM. * Suraj Rivera SLP - 01/26/2024 10:20 AM CDT Speech Language Therapy Discharge Summary Reason for therapy discharge: Discharged to home with outpatient therapy. Progress towards therapy goal(s). See goals on Care Plan in [facility] electronic health record for goal details. Goals partially met. Barriers to achieving goals: discharge from facility. Therapy recommendation(s): Continued therapy is recommended. Rationale/Recommendations: OP [employer] for high level cognition, return to work. Status at ARU discharge: Hearing: WFL Vision: Glasses- reporting vision blurry Communication: Motor speech, language intact Cognition: Mild cognitive impairment- attention and reasoning/problem solving. Swallow: Regular solids/thin liquids (0). Not formally evaluated on ARU. Discharge session- Pt seen with and son present for session with focus on family training/education. Pt an family edu in recommendation for family to check in to ensure medication doses takenat correct time, pt has performed well on medication management tasks but has some new-to-her medications. Pt ad family edu in external memory strategies to promote pt independence. Pt and family edu in impact of fatigue on cognition, recommendation for ongoing [employer] for high level cognition as pt wanting to return to work. RBANS B 01/22 (ARU re-admission) Repeatable Battery for the Assessment of Neuropsychological Status (RBANS) FORM B Immediate Memory Visuospatial/ Constructional Language Attention Delayed Memory Total Scale Index Score 85 96 91 88 103 89 Percentile Rank 16 39 27 21 58 23 RBANS A 01/17 (ARU initial admission) Repeatable Battery for the Assessment of Neuropsychological Status (RBANS) FORM A Immediate Memory Visuospatial/ Constructional Language Attention Delayed Memory Total Scale Index Score 87 100 91 75 98 86 Percentile Rank 19 50 27 5 45 18 * Stephanie Paula OTR - 01/25/2024 3:26 PM CDT Machine Cloth Examiner Post-Acute Rehab OT: Discharge Plan: home alone daytime, IADL A evening family; OP OT Precautions: fall, vision, RUE sensory deficit Current Status: ADLs: Mobility: Ind in room Grooming: Ind Dressing: Ind Bathing: Mod I with ETB and grab bars Toileting: Ind with grab bar IADLs: Ind with pet care and light kitchen tasks. 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 Recommend transportation A. Vision/Cognition: Glasses. Noted undershoot with R saccades and 1x break in horizontal pursuits; endorses diplopia with convergence ~ 3 inch distance and at far distance. Concern for potential peripheral vision issues impairing anchoring/spatial awareness in environment. Cognitively, pt self-reports identifies as neurodivergent; slower processing, distractible in noisy environments. Assessment: Pt completing the Multiple Errands Test to work on action dependent executive functioning skills. Pt completing the assessment accurately with only mild inefficiency. Provided with resources for OP therapy referral for EDS management. Other Barriers to Discharge (DME, Family Training, etc): Level of A - home alone during daytime. Home environment with multiple stairs. Pt spouse to be installing grab bars in shower prior to discharge home. DME: Pt reported plan to order shower chair. Family training: Thursday 01/25 prior to discharge in PM. * Danya Ricks PT - 01/25/2024 1:12 PM CDT 01/25/24 0815 Signing Clinician's Name / Credentials Signing clinician's name / credentials Danya Ricks DPRuiz Functional Gait Assessment (Edward Vargas, Yanna Quinones, et al. (2004)) 1. GAIT LEVEL SURFACE 3 2. CHANGE IN GAIT SPEED 2 3. GAIT WITH HORIZONTAL HEAD TURNS 3 4. GAIT WITH VERTICAL HEAD TURNS 2 5. GAIT AND PIVOT TURN 2 6. STEP OVER OBSTACLE 2 7. GAIT WITH NARROW BASE OF SUPPORT 0 8. GAIT WITH EYES CLOSED 2 9. AMBULATING BACKWARDS 3 10. STEPS 3 Total Functional Gait Assessment Score TOTAL SCORE: (MAXIMUM SCORE 30) 22 Functional Gait Assessment (FGA): The FGA assesses postural stability during various walking tasks. Gait assistive device used: None Scores of <22 /30 have been correlated with predicting falls in community- dwelling older adults according to Sam & Manpreet 2010. Scores of <18 /30 have been correlated with increased risk for falls in patients with ParkinsonsDisease according to Raúl Cates Zhou et al 2014. Minimal Detectable Change for patients with acute/chronic stroke = 4.2 according to Thieme & Ritschel 2009 Minimal Detectable Change for patients with vestibular disorder = 8 according to Sam & Case 2010 Assessment (rationale for performing, application to patient? s function & care plan): Pt performs at/above falls risk threshold. Significant change since previous attempt (exceeds MDC) * Johnathon Jones MD - 01/25/2024 11:08 AM CDT Images from the original note were not included. [facility] Acute Rehabilitation Unit Daily progress note INTERVAL HISTORY Alcon Zamora was seen today. Team has discussed anxiety and ways to work through this, both medical and non medical she does feel it is in part related to being in hospital setting and will improve upon discharge. Now independent in room with walker recommended for hallway. Alcon has stress and fatigue, ongoing intermittent headaches and vision changes that seem to be related to exertion/ stressand improve with rest and tylenol and continue to slowly improve. PT: Bed Mobility: mod ind Transfer: Imtiaz with FWW, SBA without AD Gait: IND in room during the day (Imtiaz in halls w/ FWW), Stairs: SBA with B rails, reciprocal pattern 12x6'' steps Balance: intact seated, mild dynamic balance impairments Outcome Measures: FGA on 01/21/24 (at hospital): 01/13 01/24: TU.5 seconds without AD, 9 seconds w/ FWW on 01/22 Assessment: Re-test FGA today, pt scores on threshold of statistical falls risk category, educated on given pt rapid progress in dynamic balance, no AD necessary for home unless pt preference to doso. Pt plans to have spouse present for out of home outings. Pt on track for discharge tomorrow after family training (10-12). MEDICATIONS Current Facility-Administered Medications Medication Dose Route Frequency Provider Last Rate Last Admin acetaminophen (TYLENOL) tablet 1,000 mg 1,000 mg Oral TID Danya You PA 1,000 mg at 01/25/24 08 aspirin (ASA) EC tablet 325 mg 325 mg Oral Daily Danya You PA 325 mg at 01/25/24 08 cetirizine (zyrTEC) tablet 10 mg 10 mg Oral Daily Danya You PA 10 mg at 01/25/24 08 fluticasone-vilanterol (BREO ELLIPTA) 200-25 MCG/ACT inhaler 1 puff 1 puff Inhalation Daily Danya You PA 1 puff at 01/25/24 08 hydrOXYzine HCl (ATARAX) tablet 50 mg 50 mg Oral At Bedtime Danya You PA 50 mg at 01/24/24 210 levETIRAcetam (KEPPRA) tablet 750 mg 750 mg Oral BID Danya You PA 750 mg at 01/25/24 0809 Lidocaine (LIDOCARE) 4 % Patch 1 patch 1 patch Transdermal Q24H Danya You PA 1 patch at 01/25/24 0808 magnesium oxide (MAG-OX) half-tab 200 mg 200 mg Oral At Bedtime Danya You PA 200 mg at 01/24/24 210 psyllium (METAMUCIL/KONSYL) Packet 1 packet 1 packet Oral Daily Danya You PA 1 packet at 01/25/24 0811 rosuvastatin (CRESTOR) tablet 20 mg 20 mg Oral At Bedtime Danya You PA 20 mg at 01/24/242103 traZODone (DESYREL) tablet 100 mg 100 mg Oral At Bedtime Danya You PA 100 mg at 01/24/242103 Current Facility-Administered Medications Medication Dose Route Frequency Provider Last Rate Last Admin albuterol (PROVENTIL HFA/VENTOLIN HFA) inhaler 2 puff Inhalation Q4H PRN Danya You PA bisacodyl (DULCOLAX) suppository 10 mg 10 mg Rectal Daily PRN Danya You PA calcium carbonate (TUMS) chewable tablet 500 mg 500 mg Oral 4x Daily PRN Danya You PA celecoxib (celeBREX) capsule 100 mg 100 mg Oral BID PRN Danya You PA diclofenac (VOLTAREN) 1 % topical gel 2 g 2 g Topical 4x Daily PRN Danya You PA hydrOXYzine HCl (ATARAX) tablet 50 mg 50 mg Oral TID PRN Danya You PA methyl salicylate-menthol (ICY HOT) ointment Topical Q6H PRN Danya You PA ondansetron (ZOFRAN ODT) ODT tab 4 mg 4 mg Oral Q6H PRN Danya You PA Patient is already receiving anticoagulation with heparin, enoxaparin (LOVENOX), warfarin (COUMADIN) or other anticoagulant medication Does not apply Continuous PRN Danya You PA senna-docusate (SENOKOT-S/PERICOLACE) 8.6-50 MG per tablet 1 tablet 1 tablet Oral BID PRN Danya You PA PHYSICAL EXAM BP 124/72 (BP Location: Left arm) Pulse 71 Temp 97.4 ??F (36.3 ??C) (Oral) Resp 16 Ht 1.727m (5' 8) Wt 97.4 kg (214 lb 11.2 oz) LMP 01/07/2006 SpO2 99% BMI 32.65 kg/m?? Gen: awake alert fatigued HEENT: wearing glasses Pulm: non labored Abd: non distended Ext: without edema Neuro/MSK: alert speech clear moves all extremities, up ambulating in room LABS Last Basic Metabolic Panel: Recent Labs Lab Test 01/21/24 0551 01/20/24 0601/19/24 2355 NA 139 138 139 POTASSIUM 4.3 4.2 4.2 CHLORIDE 106 105 104 CO2 26 26 24 ANIONGAP 7 7 11 GLC 88 88 99 BUN 16.5 15.4 16.7 CR 0.71 0.68 0.68 GFRESTIMATED >90 >90 >90 TIFF 8.7 8.7 9.1 CBC RESULTS: Recent Labs Lab Test 01/21/24 0551 01/20/24 0629 01/19/24 2133 WBC 8.6 8.3 11.4* RBC 4.49 4.61 4.97 HGB 13.6 14.0 15.1 HCT 40.3 41.6 45.0 MCV 90 90 91 MCH 30.3 30.4 30.4 MCHC 33.7 33.7 33.6 RDW 12.1 12.1 12.3 PLT 181 202 215 Rehabilitation - continue comprehensive acute inpatient rehabilitation program with multidisciplinary approach including therapies, rehab nursing, and physiatry following. See interval history for updates. 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 Discharged in setting of acute mental status change, concern for seizure, workup felt not consistent with seizure, episodes felt related to fatigue/stress. Functionally making progress with ongoing strength, balance, activity tolerance, and cognition below baseline, Patient will require and benefit from PT, OT, and [employer] services as well as all of the ancillaryservices offered in the inpatient rehab setting. 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 After the procedure, patient had a severe headache, episode of emesis, new onset right arm weakness and numbness, was found to have multiple acute ischemic infarcts of the frontal lobes, parietal lobes and left supramarginal gyrus, neurology believed embolic in nature, likely procedural complication - continue PT, OT, [employer] as outpatient - Secondary stroke ppx: - BP: Goal normotensive. - currently at goal without meds - Cholesterol: Rosuvastatin 20 qhs - Blood glucose: normoglycemic, no hx of DM - AC/AP: ASA 325 mg qday per neuro - Stroke Education with patient and family during stay - tylenol: 1000 mg TID # Seizure Post-stroke seizures noted 01/13 early AM at acute hospital, given Keppra load with IV ativan to abort seizure, neurology recommended continuing Keppra 750 BID and follow up outpatient. - Keppra 750 mg BID - Neurology outpatient follow up - Outpatient hypercoagulation workup per neurology # concern for seizure Episodes 5/6 with decreased level of alertness, rapid eye movement, and teeth grinding. Transferredto hospital for evaluation, seen by neurology: EEG 01/20 reassuring, MRI / low suspicion for seizure, felt related to fatigue/ over exertion. -encourage consistent rest/ breaks -encouraged to complete calming techniques, atarax prn # # AV fistula, left sigmoid dural # Pulsatile tinnitus Weeks prior to admission, patient had pulsatile tinnitus that lead to cerebral angiogram 01/08, confirmed left sigmoid dural AV fistula. Planned to follow with Jada BOWMAN for repair but would like to transition cares to [facility]. - [facility] IR referral at discharge # RUE pain # Fibromyalgia Reports new aches in her right upper extremity which feel similar to past fibromyalgia flares, feelmuscular and also related to being bedridden. Relieved by massage. No other concerning symptoms with this. - Scheduled APAP - Lidocaine patches PRN - Voltaren gel PRN # Anxiety # Depression # Psychosocial stressors Reports understandable stress given recent events. Denied SI/HI. 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 - Hydroxyzine PRN -monitor mood # History of ASD, repaired: Per chart, has Amplatz septal occluder device in place. # Insomnia - TELEPHONE LINEMAN Atarax 50 mg at bedtime - TELEPHONE LINEMAN Trazodone 100 mg at bedtime # Constipation - TELEPHONE LINEMAN Magnesium oxide 400 mg at bedtime - PRN Senna # Seasonal allergies - Zyrtec 10 mg qday # Sleep - Trazodone 100 mg at bedtime - evaluate need during rehab stay # Asthma - TELEPHONE LINEMAN Breo Ellipta qday # Bowel: States current regimen helps her stay regular. - Psyllium daily - Magnesium oxide at bedtime - PRN bowel meds available Adjustment to disability: psychology for emotional support FEN: reg Bowel: monitor Bladder: monitor DVT Prophylaxis: ambulation GI Prophylaxis: none Code: full Disposition: home ELOS: 5.12 Follow up Appointments on Discharge: Neurology, neuro interventional, primary care Doing well. Discussed with team. Continue cares and plans outlined. Johnathon Jones MD * Susan Funes - 01/24/2024 1:19 PM CDT Pt will discharge home this Saturday, 01/25, with OP therapies. This creative services writer is covering for ARU remotely, so SW called pt to complete IRF questions. Pt had no further questions for SW. IRF-VIDHYA Pain Assessment Pain Effect on Sleep Over the past 5 days, how much of the time has pain made it hard for you to sleep at night? 0. Does not apply - I have not had any pain or hurting in the past 5 days OSEI Aguayo Post Acute Float Endocrinology Teacher ARU/TCU/LTACH * Kisha Anderson OTR - 01/24/2024 12:57 PM CDT Machine Cloth Examiner Post-Acute Rehab OT: Discharge Plan: home alone daytime, IADL A evening family; OP OT Precautions: fall, vision, RUE sensory deficit Current Status: ADLs: Mobility: Ind in room, Mod I with 2ww in [place] Grooming: Ind Dressing: Ind Bathing: Mod I with ETB and grab bars Toileting: Ind with grab bar IADLs: Ind with pet care and light kitchen tasks. 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 Recommend transportation A. Vision/Cognition: Glasses. Noted undershoot with R saccades and 1x break in horizontal pursuits; endorses diplopia with convergence ~ 3 inch distance and at far distance. Concern for potential peripheral vision issues impairing anchoring/spatial awareness in environment. Cognitively, pt self-reports identifies as neurodivergent; slower processing, distractible in noisy environments. Assessment: Pt completing showering task Mod I; IND with simulation of pet care and kitchen-relatedtasks. Transitioned pt to IND in room, Mod I in [place] with 2ww. Other Barriers to Discharge (DME, Family Training, etc): Level of A - home alone during daytime. Home environment with multiple stairs. Pt spouse to be installing grab bars in shower prior to discharge home. DME: Pt reported plan to order shower chair. Family training: Thursday 01/25 prior to discharge in PM. Associated attestation - Nicolás Kauffman OT - 01/24/2024 3:01 PM CDT Nicolás Dillon OTR/Terrell, attest this note. * Danya You PA - 01/24/2024 9:17 AM CDT Images from the original note were not included. [facility] Acute Rehabilitation Unit Daily progress note INTERVAL HISTORY Alcon Zamora was seen sitting up edge of bed working with speech. She asked questions about medications, follow up and activity level. We discussed anxiety and ways to work through this, both medical and non medical she does feel it is in part related to being in hospital setting and will improve upon discharge. Now independent in room with walker recommended for hallway. Alcon also talked aboutsymptoms she experiences with stress and fatigue, ongoing intermittent headaches and vision changesthat seem to be related to exertion/ stress and improve with rest and tylenol and continue to slowly improve. PT: Assessment: Pt with improvement in amb w/o AD while reducing gaze on feet using ball toss task. During session pt endorses distorted vision, VSS, sx reduced when transitioning from balance task to Nustep. Planning for FGA tomorrow to re- assess falls risk w/o AD, pt continues to appear less guarded when amb w/o AD. MEDICATIONS Current Facility-Administered Medications Medication Dose Route Frequency Provider Last Rate Last Admin acetaminophen (TYLENOL) tablet 1,000 mg 1,000 mg Oral TID Danya You PA 1,000 mg at 01/24/24 0629 aspirin (ASA) EC tablet 325 mg 325 mg Oral Daily Danya You PA 325 mg at 01/24/24 0836 cetirizine (zyrTEC) tablet 10 mg 10 mg Oral Daily Danya You PA 10 mg at 01/24/2436 fluticasone-vilanterol (BREO ELLIPTA) 200-25 MCG/ACT inhaler 1 puff 1 puff Inhalation Daily Danya You PA 1 puff at 01/24/24 0840 hydrOXYzine HCl (ATARAX) tablet 50 mg 50 mg Oral At Bedtime Danya You PA 50 mg at 01/23/242038 levETIRAcetam (KEPPRA) tablet 750 mg 750 mg Oral BID Danya You PA 750 mg at 01/24/24 0836 Lidocaine (LIDOCARE) 4 % Patch 1 patch 1 patch Transdermal Q24H Danya You PA 1 patch at 01/24/24 0837 magnesium oxide (MAG-OX) half-tab 200 mg 200 mg Oral At Bedtime Danya You PA 200 mg at 01/23/242038 psyllium (METAMUCIL/KONSYL) Packet 1 packet 1 packet Oral Daily Danya You PA 1 packet at 01/24/24835 rosuvastatin (CRESTOR) tablet 20 mg 20 mg Oral At Bedtime Danya You PA 20 mg at 01/23/242038 traZODone (DESYREL) tablet 100 mg 100 mg Oral At Bedtime Danya You PA 100 mg at 01/23/242038 Current Facility-Administered Medications Medication Dose Route Frequency Provider Last Rate Last Admin albuterol (PROVENTIL HFA/VENTOLIN HFA) inhaler 2 puff Inhalation Q4H PRN Danya You PA bisacodyl (DULCOLAX) suppository 10 mg 10 mg Rectal Daily PRN Danya You PA calcium carbonate (TUMS) chewable tablet 500 mg 500 mg Oral 4x Daily PRN Danya You PA celecoxib (celeBREX) capsule 100 mg 100 mg Oral BID PRN Danya You PA diclofenac (VOLTAREN) 1 % topical gel 2 g 2 g Topical 4x Daily PRN Danya You PA hydrOXYzine HCl (ATARAX) tablet 50 mg 50 mg Oral TID PRN Danya You PA methyl salicylate-menthol (ICY HOT) ointment Topical Q6H PRN Danya You PA ondansetron (ZOFRAN ODT) ODT tab 4 mg 4 mg Oral Q6H PRN Danya You PA Patient is already receiving anticoagulation with heparin, enoxaparin (LOVENOX), warfarin (COUMADIN) or other anticoagulant medication Does not apply Continuous PRN Danya You PA senna-docusate (SENOKOT-S/PERICOLACE) 8.6-50 MG per tablet 1 tablet 1 tablet Oral BID PRN Danya You PA PHYSICAL EXAM BP 120/67 (BP Location: Left arm, Patient Position: Semi-Gerardo's, Cuff Size: Adult Regular) Pulse 96 Temp 97.7 ??F (36.5 ??C) (Oral) Resp 18 Ht 1.727 m (5' 8) Wt 97.4 kg (214 lb 11.2 oz) LMP 01/07/2006 SpO2 96% BMI 32.65 kg/m?? Gen: awake alert fatigued HEENT: wearing glasses Pulm: non labored Abd: non distended Ext: without edema Neuro/MSK: alert speech clear moves all extremities, up ambulating in room LABS Last Basic Metabolic Panel: Recent Labs Lab Test 01/21/24 0551 01/20/24 0629 01/19/24 2355 NA 139 138 139 POTASSIUM 4.3 4.2 4.2 CHLORIDE 106 105 104 CO2 26 26 24 ANIONGAP 7 7 11 GLC 88 88 99 BUN 16.5 15.4 16.7 CR 0.71 0.68 0.68 GFRESTIMATED >90 >90 >90 TIFF 8.7 8.7 9.1 CBC RESULTS: Recent Labs Lab Test 01/21/24 0551 01/20/24 0601/19/24 2133 WBC 8.6 8.3 11.4* RBC 4.49 4.61 4.97 HGB 13.6 14.0 15.1 HCT 40.3 41.6 45.0 MCV 90 90 91 MCH 30.3 30.4 30.4 MCHC 33.7 33.7 33.6 RDW 12.1 12.1 12.3 PLT 181 202 215 Rehabilitation - continue comprehensive acute inpatient rehabilitation program with multidisciplinary approach including therapies, rehab nursing, and physiatry following. See interval history for updates. 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 Discharged in setting of acute mental status change, concern for seizure, workup felt not consistent with seizure, episodes felt related to fatigue/stress. Functionally making progress with ongoing strength, balance, activity tolerance, and cognition below baseline, Patient will require and benefit from PT, OT, and [employer] services as well as all of the ancillaryservices offered in the inpatient rehab setting. # Cerebral infarct of the frontal lobes, parietal lobes, left supramarginal gyrus, embolic in nature, likely procedural complication # Right sided numbness, weakness # Headaches, frontal Patient was seen by [facility] interventional neuroradiology for diagnostic catheter cerebral angiogram for left sided pulsatile tinnitus 01/09/24. After the procedure, patient had a severe headache, episode of emesis, new onset right arm weakness and numbness, was found to have multiple acute ischemic infarcts of the frontal lobes, parietal lobes and left supramarginal gyrus, neurology believed embolic in nature, likely procedural complication - continue PT, OT, [employer] as outpatient - Secondary stroke ppx: - BP: Goal normotensive. - currently at goal without meds - Cholesterol: Rosuvastatin 20 qhs - Blood glucose: normoglycemic, no hx of DM - AC/AP: ASA 325 mg qday per neuro - Stroke Education with patient and family during stay - tylenol: 1000 mg TID # Seizure Post-stroke seizures noted 01/13 early AM at acute hospital, given Keppra load with IV ativan to abort seizure, neurology recommended continuing Keppra 750 BID and follow up outpatient. - Keppra 750 mg BID - Neurology outpatient follow up - Outpatient hypercoagulation workup per neurology # concern for seizure Episodes 5/6 with decreased level of alertness, rapid eye movement, and teeth grinding. Transferredto hospital for evaluation, seen by neurology: EEG 01/20 reassuring, MRI / low suspicion for seizure, felt related to fatigue/ over exertion. -encourage consistent rest/ breaks -encouraged to complete calming techniques, atarax prn # # AV fistula, left sigmoid dural # Pulsatile tinnitus Weeks prior to admission, patient had pulsatile tinnitus that lead to cerebral angiogram 01/08, confirmed left sigmoid dural AV fistula. Planned to follow with Jada BOWMAN for repair but would like to transition cares to [facility]. - [facility] IR referral at discharge # RUE pain # Fibromyalgia Reports new aches in her right upper extremity which feel similar to past fibromyalgia flares, feelmuscular and also related to being bedridden. Relieved by massage. No other concerning symptoms with this. - Scheduled APAP - Lidocaine patches PRN - Voltaren gel PRN # Anxiety # Depression # Psychosocial stressors Reports understandable stress given recent events. Denied SI/HI. 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 - Hydroxyzine PRN -monitor mood # History of ASD, repaired: Per chart, has Amplatz septal occluder device in place. # Insomnia - TELEPHONE LINEMAN Atarax 50 mg at bedtime - TELEPHONE LINEMAN Trazodone 100 mg at bedtime # Constipation - TELEPHONE LINEMAN Magnesium oxide 400 mg at bedtime - PRN Senna # Seasonal allergies - Zyrtec 10 mg qday # Sleep - Trazodone 100 mg at bedtime - evaluate need during rehab stay # Asthma - TELEPHONE LINEMAN Breo Ellipta qday # Bowel: States current regimen helps her stay regular. - Psyllium daily - Magnesium oxide at bedtime - PRN bowel meds available Adjustment to disability: psychology for emotional support FEN: reg Bowel: monitor Bladder: monitor DVT Prophylaxis: ambulation GI Prophylaxis: none Code: full Disposition: home ELOS: 5.12 Follow up Appointments on Discharge: Neurology, neuro interventional, primary care Patient seen and discussed with Dr. Del Angel PM&R Staff Physician 35 minutes spent on the date of the encounter doing (chart review/review of outside records/review of test results/interpretation of tests/patient visit/documentation/discussion with other provider(s) Danya You PA-C Physical Medicine & Rehabilitation * Sasha Alvarado RN - 01/24/2024 6:49 AM CDT [id number] BP 123/47 (BP Location: Right arm) Pulse 75 Temp 98.1 ??F (36.7 ??C) (Oral) Resp 18 Ht 1.727 m (5' 8) Wt 97.4 kg (214 lb 11.2 oz) LMP 01/07/2006 SpO2 96% BMI 32.65 kg/m?? Orientation: Alert and oriented, able to make needs known Bowel: Last BM 01/23/24 Bladder: Continent Pain: Headache. Managed by scheduled tylenol Ambulation/Transfers: Independent with walker Diet/ Liquids: Regular diet, take medications whole. Tubes/ Lines/ Drains: None Oxygen:on room air Skin: Intact Call light within reach. Continue with POC. * Danya Ricks, PT - 01/23/2024 4:19 PM CDT 01/23/24 1315 Appointment Info Signing Clinician's Name / Credentials (PT) Danya Ricks DPRuiz Living Environment People in Home spouse;child(vipul), adult Current Living Arrangements house Transportation Anticipated family or friend will provide Living Environment Comments Home with 1 KARTHIK from garage. Once on main level has dining room/kitchen/living room, but requires flight of stairs to get to bedroom/bathroom, 1 railing. Self-Care Usual Activity Tolerance good Current Activity Tolerance moderate Regular Exercise Yes Activity/Exercise Type walking Exercise Amount/Frequency daily Equipment Currently Used at Home none Activity/Exercise/Self-Care Comment IND ADLs and amb without device prior to initial hospitalization. Previously pt amb on treadmill 30 min/day. Limted endurance prior to admission Previous Level of Function/Home Environm Bathing, Previous [...] or Date of Surgery 01/09/[address] Parminder Del Angel Patient/Family Therapy Goals Statement (PT) Return zoila work, return to gardening Pertinent History of Current Problem (include personal factors and/or comorbidities that impact thePOC) Per EMR: 48 year old female with past medical history of Lizy-Danlos syndrome, mild persistent asthma, anxiety and depression, and fibromyalgia who presented for a planned catheter angiogram at [facility] for left sided pulsatile tinnitus, following procedure found to have multipleacute ischemic infarcts of the frontal lobes, parietal lobes and left supramarginal gyrus after procedure with associated right sided weakness and numbness, likely embolic in nature secondary to procedure complication, complicated by post-stroke seizures, admitted on 01/17/2024 at [facility] for acute inpatient rehabilitation. 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 No overt asymmetries in functional strengthR vs L LE, able to ascend stairs wtih either R or L LE Balance Balance Comments able to demonstrate static stance w/o UE support, minor LOB with stepping w/o UE support. LOB wtih static stance eyes closed Sensory Examination Sensory Perception Comments Pt endorses parasthesias in R UE, light touch and proprioception screenintact B LE however some delayed processing on R LE. Visual impairments (peripheral) per OT report Muscle Tone Muscle Tone no deficits were identified Clinical Impression Criteria for Skilled Therapeutic Intervention Yes, treatment indicated PT Diagnosis (PT) impaired sensory detection and weighting deficit Influenced by the following impairments Visual impairments, sensory detection impairments, dynamic balance deficit, limited activity tolerance/endurance Functional limitations due to impairments transfers, amb, stairs Clinical Presentation (PT Evaluation Complexity) evolving Clinical Presentation Rationale Pt with <3 impairments, evolving course of recovery post-stroke Clinical Decision Making (Complexity) moderate complexity Planned Therapy Interventions (PT) balance training;bed mobility training;gait training;groups;homeexercise program;motor coordination training;neuromuscular re-education;patient/family education;stair training;strengthening;transfer training;progressive activity/exercise;home program guidelines;risk factor education Risk & Benefits of therapy have been explained evaluation/treatment results reviewed;care plan/treatment goals reviewed;risks/benefits reviewed;current/potential barriers reviewed;participants voiced agreement with care plan;participants included;patient Clinical Impression Comments Pt presents with impairments in sensory detection/weighting, vision, dynamic balance, and activity tolerance/endurance following CVA and post-stroke seizures. Pt lives with spouse who works during the day, with goal for Imtiaz household mobility at discharge. Pt will benefit from ~5 days IP rehab for progressing to Imtiaz for all household mobility, with OP PT follow up at discharge PT Total Evaluation Time PT Eval, Moderate Complexity Minutes (69253) 45 Physical Therapy Goals PT Frequency 6x/week Interventions Interventions Quick Adds Therapeutic Activity Therapeutic Activity Therapeutic Activities: dynamic activities to improve functional performance Minutes (61736) 15 Treatment Detail/Skilled Intervention Patient education on post-stroke rehab timeline, factors influencing dynamic balance (vision, sensation, reaction time, fatigue etc). Pt eager to amb w/o FWW, endorses also fearful without. Progressed from in room amb a/ FWW Imtiaz to mobilizing with MAMMOGRAPHER > CGAw/o AD. FT set for Saturday Physical Performance Test or Measurement (Report Req) Treatment Detail/Skilled Intervention TUG billed as eval PT Discharge Planning PT Plan Re-test FGA. Dynamic tasks w/o AD Total Session Time Timed Code Treatment Minutes 15 Total Session Time (sum of timed and untimed services) 60 PT - Acute Rehab Center Time Individual Time (minutes) - PT 60 (15 TA, 45 mod eval) Group Time (minutes) - PT 0 Concurrent Time (minutes) - PT 0 Co-Treatment Time (minutes) - PT 0 ARC Total Session Time (minutes) - PT 60 ARC Daily Total Session Time PT ARC Daily Total Session Time 60 ARC Daily Rehab Total Minutes 180 * Nicolás Kauffman, OT - 01/23/2024 3:29 PM CDT Machine Cloth Examiner Post-Acute Rehab OT: Discharge Plan: home alone daytime, IADL A evening family; OP OT Precautions: fall, vision, RUE sensory deficit Current Status: ADLs: Mobility: Mod I FWW room daytime, SBA Ax1 evening/NOC. Grooming: Mod I wash hands. Oral cares - NT. Dressing: Mod I dressing. Bathing: NT Toileting: Mod I with FWW and grab bar. 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 Recommend transportation A. Vision/Cognition: Glasses. Noted undershoot with R saccades and 1x break in horizontal pursuits; endorses diplopia with convergence ~ 3 inch distance and at far distance. Concern for potential peripheral vision issues impairing anchoring/spatial awareness in environment. Cognitively, pt self-reports identifies as neurodivergent; slower processing, distractible in noisy environments. Assessment: Pt admitted to ARU s/p CVA following readmission to acute care in context of suspected seizure activity. Pt previously IND ADLs and high level IADLs; currently requires increased assist for select ADLs and IADLs. Performance primarily limited by R sensory deficits, vision deficits, cognitive changes, and fatigue impairing dynamic balance, activity tolerance, and coordination in tasks.Pt Mod I in room FWW-based toileting and dressing tasks. Anticipate short stay with goals to progress to Mod I all ADLs and light IADLs. Plan to discharge home with IADL A from spouse and son in evening, Mod I during daytime when family at work. ELOS 5 days . Other Barriers to Discharge (DME, Family Training, etc): Level of A - home alone during daytime. Home environment with multiple stairs. No grab bars at toilet or tub/shower combo. DME: TBD. Family training: Thursday 01/25. * Nicolás Kauffman OT - 01/23/2024 3:28 PM CDT 01/23/24 0815 Appointment Info Signing Clinician's Name / Credentials (OT) JAIMIE Page/Terrell Living Environment People in Home spouse;child(vipul), adult Current Living Arrangements house Transportation Anticipated family or friend will provide Living Environment Comments Lives with spouse and 26 year old son, both work out of home during daytime. Split level with 8-9 steps to access main bedroom/bathroom. Standard height toilets. Tub/shower combo upstairs with high height dust brush assembler tub. Downstairs bathroom has a standard tub/shower combo. No grab bars in bathroom. Self-Care Usual Activity Tolerance good Current Activity Tolerance fair Regular Exercise Yes Activity/Exercise Type walking (treadmill) Activity/Exercise/Self-Care Comment IND ADLs without device prior to initial hospitalization. Pt endorses limited activity outside of the home and leaves ~1x/week. 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 Post-Acute Assessment Only Post-Acute Functional Assessment See below Previous Level of Function/Home Environm Bathing, Previous [...] independent Community Ambulation, Previous Functional Level independent Functional Cognition, Previous Functional Level IND Previous Level of Function IND General Information Onset of Illness/Injury or Date of Surgery 01/17/24 Referring Physician Danya You Additional Occupational Profile Info/Pertinent History of Current Problem Per EMR Alcon Zamora oriana 48 year old female with past medical history of Lizy- Danlos syndrome, mild persistent asthma, anxiety and depression, and fibromyalgia who presented for a planned catheter angiogram at [facility] for left sided pulsatile tinnitus, following procedure found to have multiple acute ischemic infarcts of the frontal lobes, parietal lobes and left supramarginal gyrus after procedure with associated right sided weakness and numbness, likely embolic in nature secondary to procedure complication, complicated by post-stroke seizures, admitted on 01/17/2024 at [facility] for acute inpatient rehabilitation. Discharged in setting of acute mental status change, concern for seizure, workup felt not consistent with seizure, episodes felt related to fatigue/stress. Functionally making progress with ongoing strength, balance, activity tolerance, and cognition below baseline, Patient will require and benefit from PT, OT, and [employer] services as well as all of the ancillary services offeredin the inpatient rehab setting. 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 Existing Precautions/Restrictions fall;seizures Limitations/Impairments visual;sensory;safety/cognitive Left Upper Extremity (Weight-bearing Status) full weight-bearing (FWB) Right Upper Extremity (Weight-bearing Status) full weight-bearing (FWB) Left Lower Extremity (Weight-bearing Status) full weight-bearing (FWB) Right Lower Extremity (Weight-bearing Status) full weight-bearing (FWB) Heart Disease Risk Factors Medical history;Stress General Observations and Info Pt reported baseline social interactions limited; self-reports sensory deficit and identifies with autism-diagnosis son has recieved. Cognitive Status Examination Orientation Status orientation to person, place and time Affect/Mental Status (Cognitive) anxious Follows Commands WFL Memory Deficit minimal deficit;short-term memory Attention Deficit distractible in noisy environment Executive Function Deficit information processing Visual Perception Visual Impairment/Limitations corrective lenses full-time Visual Motor Impairment saccades;visual tracking, right (Undershoot to saccades to R with stutter noted. Pt reporting decreased acuity/diplopia with convergence screen 3 inches from nose) Visual Acuity (Pt reporting decreased distance acuity; reporting objects appear doubled in horizontal orientation. Pt reported especially noticeable with impact on function in unfamiliar environments and improves with increased familiarity with environment.) Impact of Vision Impairment on Function (Vision) (Pt reported not knowing center while walking and needing to gaze at floor at feet in order to feel sense of orientation in space.Recommend peripheral vision tx due to functional environmental anchoring deficit.) Sensory Sensory Comments Parasthesias in RUE proximal to distal. Intact delayed light touch on RUE with ability to discern 2.83 [place] monofilament accurately with ~1-3 second delay. R hand proprioception deficit noted - accurate with delay shoulder/elbow/forearm; approximated with some error R wr ist, thumb, and digits. Posture Posture protracted shoulders Range of Motion Comprehensive Comment, General Range of Motion BUE WFL; RUE requiring slightly increased time to complete movements Strength Comprehensive (MMT) Comment, General Manual Muscle Testing (MMT) Assessment BUE WFL grossly 5/5 MMT; slightly decreasedgrip noted in R hand. Muscle Tone Assessment Muscle Tone Quick Adds No deficits were identified Coordination Coordination Comments Pt reporting increase right hand tremor; observed in footwear donning and additional ADL tasks requiring extra time and effort for tasks. Clinical Impression Criteria for Skilled Therapeutic Interventions Met (OT) Yes, treatment indicated OT Diagnosis Impaired ADLs, IADLs Influenced by the following impairments vision deficits, R sensory deficits, fatigue OT Problem List-Impairments impacting ADL problems related to;activity tolerance impaired;motor control;sensation;strength;sensory feedback;vision;balance;cognition;fear & anxiety;coordination;pain Assessment of Occupational Performance 3-5 Performance Deficits Identified Performance Deficits bathing, grooming/hygiene, meal prep, light home mgmt Planned Therapy Interventions (OT) ADL retraining;IADL retraining;bed mobility training;cognition;fine motor coordination training;groups;strengthening;transfer training;home program guidelines;progre ssive activity/exercise;risk factor education;balance training;neuromuscular re- education;visual perception Clinical Decision Making Complexity (OT) detailed assessment/moderate complexity Risk & Benefits of therapy have been explained evaluation/treatment results reviewed;care plan/treatment goals reviewed;risks/benefits reviewed;current/potential barriers reviewed;participants voiced agreement with care plan;participants included;patient Clinical Impression Comments Pt admitted to ARU s/p CVA following readmission to acute care in context of suspected seizure activity. Pt previously IND ADLs and high level IADLs; currently requires increased assist for select ADLs and IADLs. Performance primarily limited by R sensory deficits, vision deficits, cognitive changes, and fatigue impairing dynamic balance, activity tolerance, and coordi nation in tasks. Pt Mod I in room FWW-based toileting and dressing tasks. Anticipate short stay with goals to progress to Mod I all ADLs and light IADLs. Plan to discharge home with IADL A from spouse and son in evening, Mod I during daytime when family at work. ELOS 5 days . OT Total Evaluation Time OT Eval, Moderate Complexity Minutes (57438) 20 OT Goals Therapy Frequency (OT) 6 times/week OT Predicted Duration/Target Date for Goal Attainment 01/27/24 OT Goals Hygiene/Grooming;Upper Body Dressing;Lower Body Dressing;Upper Body Bathing;Lower Body Bathing;Bed Mobility;Transfers;Toilet Transfer/Toileting;Meal Preparation;Home Management;Cognition OT: Hygiene/Grooming modified independent;within precautions;while standing OT: Upper Body Dressing Modified independent;including set-up/clothing retrieval;within precautions OT: Lower Body Dressing Modified independent;including set-up/clothing retrieval;within precautions OT: Upper Body Bathing Modified independent;using adaptive equipment;within precautions OT: Lower Body Bathing Modified independent;using adaptive equipment;with precautions OT: Bed Mobility Independent;supine to/from sitting;within precautions OT: Transfer Modified independent;with assistive device;within precautions OT: Meal Preparation Modified independent;with simple meal preparation;ambulatory level;within precautions OT: Home Management Modified independent;with light demand household tasks;ambulatory level;within precautions OT: Cognitive Patient/caregiver will verbalize understanding of cognitive assessment results/recommendations as needed for safe discharge planning Interventions Interventions Quick Adds Self-Care/Home Management Self-Care/Home Management Self-Care/Home Mgmt/ADL, Compensatory, Meal Prep Minutes (52905) 40 Symptoms Noted During/After Treatment (Meal Preparation/Planning Training) fatigue (headache) Treatment Detail/Skilled Intervention Eval completed and treatment initiated. Prior PT okayed Mod Iin room; continued assessment of appropriateness for Mod I ADLs coordinated with mobility status; see GG. Pt requiring extra time for tasks due to FMC, processing, and emotional regulation needs - ptexpressing overwhelm/near tearfulness at times. Pt expressing emotional difficulty with recent medical events and current function with fears of implications on return to work; provided therapeautic listening and pt with improved affact following. Session included FWW- ambulation SBA room <> OT gym. OT Discharge Planning OT Plan OT: Shower - FWW amb <> shower room to ETB GGs Total Session Time Timed Code Treatment Minutes 40 Total Session Time (sum of timed and [...] 60 ARC Daily Rehab Total Minutes 60 Grooming (except oral cares) Grooming Task Performed Washing hands Grooming Comment Supervision initially FWW; deemed appropriate for Mod I Upper Body Dressing Describe performance SBA FWW clothing retrieval FWW-based in closet; initially supervision donned shirt/bra EOB with extra time for RUE FMC; appropriate for IND Clothing Utilized Shirt;Bra Lower Body Dressing (Pants/Undergarments) Describe performance SBA FWW-retrieval from closet; SBA FWW intially; appropriate for Mod I Clothing Utilized Underwear (yoga pants) Lower Body Dressing putting on/taking off footwear Describe performance Don/doff socks and lace up sneakers at EOB with supervision; appropriate Mod I Toilet Hygiene Describe performance Initially supervision with grab bar anf FWW; appropriate for Mod I Toilet Transfer Describe performance Initially supervision with FWW and grab bar; appropriate Mod I * Suraj Rivera, JUAN - 01/23/2024 12:18 PM CDT 01/23/24 1130 Appointment Info Signing Clinician's Name / Credentials ([employer]) Suraj Rivera MS, CCC-[employer] General Information Onset of Illness/Injury or Date of Surgery 01/09/24 Referring Physician Danya You PA Pertinent History of Current Problem Per H&P: Patient is 48 year old female with past medical history of Lizy-Danlos syndrome, mild persistent asthma, anxiety and depression, fibromyalgia who presented for a planned catheter angiogram at [facility] for evaluation of left sided pulsatile tinnitus on 01/09/24. After the procedure, noted some incoordination of [...] gene mutation, Lupus anticoagulant, Cardiolipin antibody, and followup with neurology in 8 weeks. Patient's acute hospital course was complicated by post-stroke seizures noted 01/13 early AM, given Keppra load with IV ativan to abort seizure, neurology recommended continuing Keppra 750 BID and follow up outpatient. She was admitted to inpatient rehabilitation unit 01/17/24. She was discharged back to hospital 01/20/24 in setting of episodes of decreased level of alertness with rapid eye movement and repetitive teeth grinding. She was evaluated to neurology 01/21/24EEG negative, MRI 01/19 with low suspicion for seizure. Madison secondary to fatigue/ over exertion. If recurrent episodes, as described, occur call on-call neuro, not to be treated like seizure, note tonic-clonic activity should be treated with lorazepam. [employer] consult received for evaluation and treatment as indicated. General Observations Prior ARU admission pt participated cognitive (RBANS A) and dysphagia evaluations, no ongoing interventions recommended for dysphagia as pt demo'd WNL oral and pharyngeal swallowfunction with regular solids/thin liquids (0). Pt did not receive acute [employer] services during re-hospitalization. Plan to re-evaluate cognitive function this day. Type of Evaluation Type of Evaluation Speech, Language, Cognition Motor Speech Speech Intelligibility (Motor Speech) WFL Auditory Comprehension Follows Commands (Auditory Comprehension) WFL Verbal Expression Conversational Speech (Verbal Expression) WFL Cognition Cognitive Function attention deficit;executive function deficit Cognitive Status Alert, pleasant, cooperative Additional cognitive-linguistic evaluation indicated Completed Cognitive Status Exam Comments RBANS form B administered and interpreted, please see progress note/below for details. Orientation Status (Cognition) oriented to;person;place;situation;time Affect/Mental Status (Cognition) WFL Follows Commands (Cognition) follows two-step commands;over 90% accuracy;follows multi-step commands;75-90% accuracy Executive Function Deficit (Cognition) minimal deficit Attention Deficit (Cognition) minimal deficit General Therapy Interventions Planned Therapy Interventions Cognitive Treatment Cognitive treatment Progressive attention training Clinical Impression Criteria for Skilled Therapeutic Interventions Met ([employer] Eval) Yes, treatment indicated [employer] Diagnosis Mild cognitive impairment Activity Limitations Related to Problem List ([employer]) Cognitive function, endurance for return to work. Risks & Benefits of therapy have been explained evaluation/treatment results reviewed;care plan/treatment goals reviewed;participants voiced agreement with care plan;participants included;patient Clinical Impression Comments [employer]: Motor speech, language intact. RBANS form B administered and interpreted. Pt with improvement in overall score, delayed memory and attention domains. Pt with lower score in visuospatial domain, reported vision blurrier than prior administration. Skilled [employer] services indicated to train in cognitive strategies, instruct in therapeutic activities to promote cognitive function. [employer] Total Evaluation Time Cognitive Performance Testing Minutes, per hour - includes time for administering test, interp results & prep report ([id number]) 60 [employer] Goals Therapy Frequency ([employer] Eval) 6 times/week [employer] Predicted Duration/Target Date for Goal Attainment 01/30/24 [employer] Goals [employer] Goal 1;[employer] Goal 2 [employer]: Goal 1 Patient will complete high level attention (alternating, divided) tasks with 90% or greater independent accuracy. [employer]: Goal 2 Patient will complete high complexity reasoning/problem solving witn 90% or greater independent accuracy. [employer] Discharge Planning [employer] Plan [employer]: ELBERT as treatment. Intro attention strategies. Tx high level attention, reasoning/problem solving. Post Acute Settings Only What unit is patient on? Acute Rehab [facility] - Acute Rehab Center Time Individual Time (minutes) - [employer] 60 Group Time (minutes) - [employer] 0 Concurrent Time (minutes) - [employer] 0 Co-Treatment Time (minutes) - [employer] 0 ARC Total Session Time (minutes) - [employer] 60 ARC Daily Total Session Time [employer] ARC Daily Total Session Time 60 ARC Daily Rehab Total Minutes 60 Repeatable Battery for the Assessment of Neuropsychological Status (RBANS) FORM Immediate Memory Visuospatial/ Constructional Language Attention Delayed Memory Total Scale Index Score 85 96 91 88 103 89 Percentile Rank 16 39 27 21 58 23 [employer]: Pt seen for administration of RBANS. Results are based on a mean of 100 and a standard deviation of +/- 15. Interpretation: Please see above. Face to Face Administration: 45 Scoring/Interpretation: 15 Total Time: 60 * Danya You PA - 01/23/2024 8:52 AM CDT Images from the original note were not included. [facility] Acute Rehabilitation Unit Daily progress note INTERVAL HISTORY Alcon Zamora was seen during team rounds. She is medically stable, undergoing therapy evals today,made mod I though FGA low, looks safe with room ambulation and basic adls, noting vision changes, impaired proprioception, balance, and coordination. Emotionally expressing anxiety around medical situation and deficits. - psychology consult for emotional support placed. See rounds note by Dr. Del Angel for further details. MEDICATIONS Current Facility-Administered Medications Medication Dose Route Frequency Provider Last Rate Last Admin acetaminophen (TYLENOL) tablet 1,000 mg 1,000 mg Oral TID Danya You PA 1,000 mg at 01/23/24 0759 aspirin (ASA) EC tablet 325 mg 325 mg Oral Daily Danya You PA 325 mg at 01/23/24 0759 cetirizine (zyrTEC) tablet 10 mg 10 mg Oral Daily Danya You PA 10 mg at 01/23/24 0759 enoxaparin ANTICOAGULANT (LOVENOX) injection 40 mg 40 mg Subcutaneous Q24H Danya You PA 40 mg at 01/22/24 1659 fluticasone-vilanterol (BREO ELLIPTA) 200-25 MCG/ACT inhaler 1 puff 1 puff Inhalation Daily Danya You PA 1 puff at 01/23/24 0800 hydrOXYzine HCl (ATARAX) tablet 50 mg 50 mg Oral At Bedtime Danya You PA 50 mg at 01/22/242135 levETIRAcetam (KEPPRA) tablet 750 mg 750 mg Oral BID Danya You PA 750 mg at 01/23/24 08 Lidocaine (LIDOCARE) 4 % Patch 1 patch 1 patch Transdermal Q24H Danya You PA magnesium oxide (MAG-OX) half-tab 200 mg 200 mg Oral At Bedtime Danya You PA 200 mg at 01/22/242134 psyllium (METAMUCIL/KONSYL) Packet 1 packet 1 packet Oral Daily Danya You PA 1 packet at 01/23/24 08 rosuvastatin (CRESTOR) tablet 20 mg 20 mg Oral At Bedtime Danya You PA 20 mg at 01/22/242135 traZODone (DESYREL) tablet 100 mg 100 mg Oral At Bedtime Danya You PA 100 mg at 01/22/242134 Current Facility-Administered Medications Medication Dose Route Frequency Provider Last Rate Last Admin albuterol (PROVENTIL HFA/VENTOLIN HFA) inhaler 2 puff Inhalation Q4H PRN Danya You PA bisacodyl (DULCOLAX) suppository 10 mg 10 mg Rectal Daily PRN Danya You PA calcium carbonate (TUMS) chewable tablet 500 mg 500 mg Oral 4x Daily PRN Danya You PA celecoxib (celeBREX) capsule 100 mg 100 mg Oral BID PRN Danya You PA diclofenac (VOLTAREN) 1 % topical gel 2 g 2 g Topical 4x Daily PRN Danya You PA hydrOXYzine HCl (ATARAX) tablet 50 mg 50 mg Oral TID PRN Danya You PA methyl salicylate-menthol (ICY HOT) ointment Topical Q6H PRN Danya You PA ondansetron (ZOFRAN ODT) ODT tab 4 mg 4 mg Oral Q6H PRN Danya You PA Patient is already receiving anticoagulation with heparin, enoxaparin (LOVENOX), warfarin (COUMADIN) or other anticoagulant medication Does not apply Continuous PRN Danya You PA senna-docusate (SENOKOT-S/PERICOLACE) 8.6-50 MG per tablet 1 tablet 1 tablet Oral BID PRN Danya You PA PHYSICAL EXAM BP 133/64 (BP Location: Right arm) Pulse 62 Temp 97.7 ??F (36.5 ??C) (Oral) Resp 18 Ht 1.727 m (5' 8) Wt 97.4 kg (214 lb 11.2 oz) LMP 01/07/2006 SpO2 97% BMI 32.65 kg/m?? Gen: awake alert fatigued HEENT: wearing glasses Pulm: non labored Abd: non distended Ext: without edema Neuro/MSK: alert speech clear LABS Last Basic Metabolic Panel: Recent Labs Lab Test 01/21/24 0551 01/20/24 0601/19/24 2355 NA 139 138 139 POTASSIUM 4.3 4.2 4.2 CHLORIDE 106 105 104 CO2 26 26 24 ANIONGAP 7 7 11 GLC 88 88 99 BUN 16.5 15.4 16.7 CR 0.71 0.68 0.68 GFRESTIMATED >90 >90 >90 TIFF 8.7 8.7 9.1 CBC RESULTS: Recent Labs Lab Test 01/21/24 0551 01/20/24 0601/19/24 2133 WBC 8.6 8.3 11.4* RBC 4.49 4.61 4.97 HGB 13.6 14.0 15.1 HCT 40.3 41.6 45.0 MCV 90 90 91 MCH 30.3 30.4 30.4 MCHC 33.7 33.7 33.6 RDW 12.1 12.1 12.3 PLT 181 202 215 Rehabilitation - continue comprehensive acute inpatient rehabilitation program with multidisciplinary approach including therapies, rehab nursing, and physiatry following. See interval history for updates. 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 Discharged in setting of acute mental status change, concern for seizure, workup felt not consistent with seizure, episodes felt related to fatigue/stress. Functionally making progress with ongoing strength, balance, activity tolerance, and cognition below baseline, Patient will require and benefit from PT, OT, and [employer] services as well as all of the ancillaryservices offered in the inpatient rehab setting. 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 After the procedure, patient had a severe headache, episode of emesis, new onset right arm weakness and numbness, was found to have multiple acute ischemic infarcts of the frontal lobes, parietal lobes and left supramarginal gyrus, neurology believed embolic in nature, likely procedural complication - continue PT, OT, [employer] - Secondary stroke ppx: - BP: Goal normotensive. 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 - Keppra 750 mg BID - Neurology outpatient follow up - Outpatient hypercoagulation workup per neurology # concern for seizure Episodes 5/6 with decreased level of alertness, rapid eye movement, and teeth grinding. Transferredto hospital for evaluation, seen by neurology: EEG 01/20 reassuring, MRI 5/6 low suspicion for seizure, felt related to fatigue/ over exertion. -encourage consistent rest/ breaks -encouraged to complete calming techniques # # AV fistula, left sigmoid dural # Pulsatile tinnitus Weeks prior to admission, patient had pulsatile tinnitus that lead to cerebral angiogram 01/08, confirmed left sigmoid dural AV fistula. Planned to follow with [facility] for repair but would like to transition cares to [facility]. - [facility] IR referral at discharge # RUE pain # Fibromyalgia Reports new aches in her right upper extremity which feel similar to past fibromyalgia flares, feelmuscular and also related to being bedridden. Relieved by massage. No other concerning symptoms with this. - Scheduled APAP - celecoxib 100 mg BID prn - Lidocaine patches PRN - Voltaren gel PRN # Anxiety # Depression # Psychosocial stressors Reports understandable stress given recent events. Denied SI/HI. 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 - Hydroxyzine PRN -monitor mood # History of ASD, repaired: Per chart, has Amplatz septal occluder device in place. # Insomnia - TELEPHONE LINEMAN Atarax 50 mg at bedtime - TELEPHONE LINEMAN Trazodone 100 mg at bedtime # Asthma - TELEPHONE LINEMAN Breo Ellipta qday # Constipation - TELEPHONE LINEMAN Magnesium oxide 400 mg at bedtime - PRN Senna # Seasonal allergies - Zyrtec 10 mg qday # Sleep - Trazodone 100 mg at bedtime - evaluate need during rehab stay # Asthma - TELEPHONE LINEMAN Breo Ellipta qday # Bowel: States current regimen helps her stay regular. - Psyllium daily - Magnesium oxide at bedtime - PRN bowel meds available Adjustment to disability: psychology for emotional support FEN: reg Bowel: monitor Bladder: monitor DVT Prophylaxis: ambulation GI Prophylaxis: none Code: full Disposition: home ELOS: pending therapy evals ~ 5 days Follow up Appointments on Discharge: Neurology, neuro interventional, primary care Patient seen and discussed with Dr. Del Angel PM&R Staff Physician 35 minutes spent on the date of the encounter doing (chart review/review of outside records/review of test results/interpretation of tests/patient visit/documentation/discussion with other provider(s) Danya You PA-C Physical Medicine & Rehabilitation Associated attestation - Parminder Del Angel MD - 01/23/2024 5:48 PM CDT Physician Attestation I saw and evaluated Alcon Zamora as part of a shared HAUNTED HISTORY TOUR GUIDE/PA visit. I personally reviewed the vital signs, medications, and labs. I personally provided a substantive portion of care for this patient and I approve the care plan aswritten by the MONICA. I was involved with Medical Decision Making including: Please see A&P for additional details of medical decision making. PARMINDER DEL ANGEL MD Date of Service (when I saw the patient): 01/23/24 documented in this encounter H&P Notes * Danya You PA - 01/22/2024 1:42 PM CDT Images from the original note were not included. [facility] Acute Rehabilitation Unit Admission History and Physical CHIEF COMPLAINT stroke HISTORY OF PRESENT ILLNESS Alcon Zamora is a 48 year old female with past medical history of Lizy-Danlos syndrome, mild persistent asthma, anxiety and depression, fibromyalgia who presented for a planned catheter angiogram at [facility] for evaluation of left sided pulsatile tinnitus on 01/09/24. After the procedure, noted some incoordination of [...] and follow up outpatient. She was admitted to inpatient rehabilitation unit 01/17/24. She was discharged back to hospital 01/20/24 in setting of episodes of decreased level of alertness with rapid eye movement and repetitive teeth grinding. She was evaluated to neurology 01/21/24 EEG negative, MRI 01/19 with low suspicion for seizure. Madison secondary to fatigue/ over exertion. If recurrent episodes, as described, occur call on-call neuro, not to be treated like seizure, note tonic-clonic activity should be treated with lorazepam. Functionally noted to have impaired activity tolerance, impaired balance, impaired cognition, impaired coordination, and impaired strength. Currently min assist for transfers. MOD I with short distance ambulation. With demonstrated loss of balance with turns and direction changes. Scored 4/30 on FGA. Navigating 4 stairs with CGA. SBA with grooming and hygiene. Dressing with stand by and set up assist in seated. On arrival to rehab seen sitting up edge of bed, spouse present for duration of visit. Reports doing ok, has some vision changes, right sided sensation, coordination, and cognitive deficits. She feels the events leading to transfer were related to stroke fatigue. Notes ongoing headache, improved with tylenol. Denies n/v/d, sob, fevers, dizziness, and bowel or bladder concerns. She has been eatingwell. Sleep was poor last night and feels fatigued. Also feels with this right sided coordination more impaired, we dicussed expected fluctuations in known deficits with stress, fatigue, anxiety, etc. Alcon reports right upper back pain starting today,and states It's like I forgot prior to this that my back has been hurting for 30 years. She notes she uses massage, lidocaine at home, ordered heat and prns as discussed. She is motivated for ongoing recovery and to return home. PAST MEDICAL HISTORY Reviewed and updated in [facility]. Past Medical History: Diagnosis Date Acute posthemorrhagic [...] asthma SURGICAL HISTORY Reviewed and updated in [facility]. Past Surgical History: Procedure Laterality Date C ASTRONOMY DEPARTMENT CHAIR PROCEDURE DATE: vag del. C ASTRONOMY DEPARTMENT CHAIR PROCEDURE DATE: 2000 tubal ligation C ASTRONOMY DEPARTMENT CHAIR PROCEDURE DATE: 1994 D&C CARDIAC SURGERY 06/2006 heart defect repair ESOPHAGOSCOPY, GASTROSCOPY, DUODENOSCOPY (EGD), COMBINED N/A 02/08/2021 Procedure: ESOPHAGOGASTRODUODENOSCOPY (EGD); Surgeon: Tuan Miller MD; Location: GI GI SURGERY 09/2020 gallbladder removed HC KNEE SCOPE,MED/LAT MENISECTOMY 08/04/13 LT HEART CATH, CLOSURE ATRIAL SEPTAL DEFECT 06/20/06 amplatzer septal occluder- serial #[id number] RW ASTRONOMY DEPARTMENT CHAIR (ABSTRACTED) pneumonia several times SURGICAL PATHOLOGY EXAM 02/2012 excision of lipoma on chest wall ZZC VAGINAL HYSTERECTOMY 01/30/06 SOCIAL HISTORY Reviewed and updated in [facility]. 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 No Social History Narrative Not on file Social Determinants of Health Financial Resource Strain: Low Risk (01/10/2023) Received from [facility] Overall Financial Resource Strain (CARDIA) Difficulty of Paying Living Expenses: Not hard at all Food Insecurity: No Food Insecurity (01/10/2023) Received from [facility] Hunger Vital Sign Worried About Running Out of Food in the Last Year: Never true Ran Out of Food in the Last Year: Never true Transportation Needs: No Transportation Needs (01/10/2023) Received from [facility] PRAPARE - Transportation Lack of Transportation (Medical): No Lack of Transportation (Non-Medical): No Physical Activity: Sufficiently Active (01/10/2023) Received from [facility] Exercise Vital Sign Days of Exercise per Week: 5 days Minutes of Exercise per Session: 30 min Stress: Stress Concern Present (01/10/2023) Received from [facility] [employer] [place] [employer] - Occupational Stress Questionnaire Feeling of Stress : Rather much Social Connections: Socially Isolated (01/10/2023) Received from [facility] Social Connection and Isolation Panel [NHANES] Frequency of Communication with Friends and Family: Once a week Frequency of Social Gatherings with Friends and Family: Once a week Attends Christian Services: Never Active Member of Clubs or Organizations: No Attends Club or Organization Meetings: Never Marital Status: Interpersonal Safety: Not At Risk (01/10/2023) Received from [facility] Humiliation, Afraid, Rape, and Kick questionnaire Fear of Current or Ex-Partner: No Emotionally Abused: No Physically Abused: No Sexually Abused: No Housing Stability: Low Risk (01/10/2023) Re[facility] from [facility] Housing Stability Vital Sign Unable to [...] of Blood Disease No family hx of PRIOR FUNCTIONAL HISTORY Pt was independent with all ADLs/IADLs, transfers, mobility and gait. MEDICATIONS Scheduled meds Medications Prior to Admission Medication Sig Dispense Refill Last Dose albuterol (PROAIR HFA/PROVENTIL HFA/VENTOLIN HFA) 108 (90 Base) MCG/ACT inhaler Inhale 2 puffs intothe lungs every 4 hours as needed for shortness of breath / dyspnea or wheezing 1 Inhaler 3 aspirin (ASA) 325 MG EC tablet Take 325 mg by mouth daily BREO ELLIPTA 200-25 MCG/INH Inhaler INHALE 1 PUFF INTO THE LUNGS DAILY 3 each 1 cetirizine (ZYRTEC) 10 MG tablet Take 10 mg by mouth daily levETIRAcetam (KEPPRA) 750 MG tablet Take 750 mg by mouth 2 times daily magnesium oxide 200 MG TABS Take 200 mg by mouth at bedtime psyllium (METAMUCIL) 28.3 % packet Take 1 packet by mouth daily rosuvastatin (CRESTOR) 20 MG tablet Take 20 mg by mouth at bedtime traZODone (DESYREL) 50 MG tablet Take 2 tablets (100 mg) by mouth At Bedtime 180 tablet 3 ALLERGIES Allergies Allergen Reactions Mold Dizziness and GI Disturbance Bupropion GI Disturbance and Other (See Comments) Diarrhea and stomach ache Erythromycin GI Disturbance REVIEW OF SYSTEMS A 10 point ROS was performed and negative unless otherwise noted in HPI. VITAL SIGNS: BP 134/70 (BP Location: Left arm, Patient Position: Semi-Gerardo's, Cuff Size: Adult Regular) Pulse 71 Temp 98.2 ??F (36.8 ??C) (Oral) Resp 16 Ht 1.727 m (5' 8) Wt 97.4 kg (214lb 11.2 oz) LMP 01/07/2006 SpO2 98% BMI 32.65 kg/m?? BMI: Estimated body mass index is 32.65 kg/m?? as calculated from the following: Height as of this encounter: 1.727 m (5' 8). Weight as of this encounter: 97.4 kg (214 lb 11.2 oz). General: awake alert and HEENT: mmm eomi Pulmonary: non labored clear Cardiovascular: rrr Abdominal: soft non tender Extremities: warm, well perfused, no edema in bilateral lower extremities, no tenderness in calves MSK/neuro: Mental Status: alert and oriented x3 Cranial Nerves: grossly normal Sensory: reports slightly different sensation to light touch on right upper than left, all intact to light touch Strength: 5/5 in all muscle groups of the upper and lower extremitie Abnormal movements: mild reported, very minimal tremor with intention on right upper Coordination: fnf and heel mast more intentional/ slowed on right compared to left. Speech:clear coherent Cognition:linear logical reported short term memory impaired Gait: not tested Skin: normal skin color, texture, turgor LABS Pertinent labs Lab Results Component Value Date WBC 8.6 01/21/2024 WBC 7.4 01/04/2021 Lab Results Component Value Date RBC 4.49 01/21/2024 RBC 4.51 01/04/2021 Lab Results Component Value Date HGB 13.6 01/21/2024 HGB 13.9 01/04/2021 Lab Results Component Value Date HCT 40.3 01/21/2024 HCT 42.2 01/04/2021 No components found for: MCT Lab Results Component Value Date MCV 90 01/21/2024 MCV 94 01/04/2021 Lab Results Component Value Date MCH 30.3 01/21/2024 MCH 30.8 01/04/2021 Lab Results Component Value Date MCHC 33.7 01/21/2024 MCHC 32.9 01/04/2021 Lab Results Component Value Date RDW 12.1 01/21/2024 RDW 11.7 01/04/2021 Lab Results Component Value Date PLT 181 01/21/2024 PLT 210 01/04/2021 Lab Results Component Value Date NA 139 01/21/2024 NA 138 01/04/2021 Lab Results Component Value Date POTASSIUM 4.3 01/21/2024 POTASSIUM 4.0 07/27/2021 POTASSIUM 4.3 01/04/2021 Lab Results Component Value Date CHLORIDE 106 01/21/2024 CHLORIDE 105 07/27/2021 CHLORIDE 106 01/04/2021 Lab Results Component Value Date TIFF 8.7 01/21/2024 TIFF 8.7 01/04/2021 Lab Results Component Value Date CO2 26 01/21/2024 CO2 26 07/27/2021 CO2 31 01/04/2021 Lab Results Component Value Date BUN 16.5 01/21/2024 BUN 20 07/27/2021 BUN 13 01/04/2021 Lab Results Component Value Date CR 0.71 01/21/2024 CR 0.77 01/04/2021 Lab Results Component Value Date GLC 88 01/21/2024 GLC 95 07/27/2021 GLC 87 01/04/2021 IMPRESSION/PLAN: Alcon Zamora is a 48 year old female with past medical history of Lizy-Danlos syndrome, mild persistent asthma, anxiety and depression, and fibromyalgia who presented for a planned catheter angiogram at [facility] for left sided pulsatile tinnitus, following procedure found to have multiple acute ischemic infarcts of the frontal lobes, parietal lobes and left supramarginal gyrus after procedure with associated right sided weakness and numbness, likely embolic in nature secondary to procedure complication, complicated by post-stroke seizures, admitted on 01/17/2024 at [facility] for acute inpatient rehabilitation. Discharged in setting of acute mental status change, concern for seizure, workup felt not consistent with seizure, episodes felt related to fatigue/stress. Functionally making progress with ongoing strength, balance, activity tolerance, and cognition below baseline, Patient will require and benefit from PT, OT, and SUPERVISOR [employer] services as well as all of the ancillaryservices offered in the inpatient rehab setting. Admission to acute inpatient rehab Right body, left brain stroke, multiple acute ischemic infarcts in the frontal and parietal lobes, left supramarginal gyrus following angiogram Impairment group code: : 01.2 PT, OT and [employer] 60 minutes of each on a daily basis up to 6 days per week, in addition to rehab nursing and close management of magnetic locater. Impairment of ADL's: Noted to have impaired strength, impaired activity tolerance, impaired cognition and impaired balance leading to decreased ability to independently complete ADL's. Will benefit from ongoing OT with goal for MOD I with basic ADLs. Impairment of mobility: Noted to have impaired strength, impaired activity tolerance, and impaired balance leading to decreased mobility. Will benefit from ongoing PT with goal for IMTIAZ with basic mobility. Impairment of cognition/language/swallow: Noted to have impaired cognition will benefit from ongoing [employer] to assess cognitive linguistic function Medical Conditions # Cerebral infarct of the frontal lobes, parietal lobes, left supramarginal gyrus, embolic in nature, likely procedural complication # Right sided numbness, weakness # Headaches, frontal Patient was seen by [facility] interventional neuroradiology for diagnostic catheter cerebral angiogram for left sided pulsatile tinnitus 01/09/24. After the procedure, patient had a severe headache, episode of emesis, new onset right arm weakness and numbness, was found to have multiple acute ischemic infarcts of the frontal lobes, parietal lobes and left supramarginal gyrus, neurology believed embolic in nature, likely procedural complication - continue PT, OT, SUPER[employer] - Secondary stroke ppx: - BP: Goal normotensive. 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 - Keppra 750 mg BID - Neurology outpatient follow up - Outpatient hypercoagulation workup per neurology # concern for seizure Episodes 5/6 with decreased level of alertness, rapid eye movement, and teeth grinding. Transferredto hospital for evaluation, seen by neurology: EEG 5/7 reassuring, MRI 01/19 low suspicion for seizure, felt related to fatigue/ over exertion. -encourage consistent rest/ breaks -encouraged to complete calming techniques # # AV fistula, left sigmoid dural # Pulsatile tinnitus Weeks prior to admission, patient had pulsatile tinnitus that lead to cerebral angiogram 01/08, confirmed left sigmoid dural AV fistula. Planned to follow with Jada BOWMAN for repair but would like to transition cares to [facility]. - [facility] IR referral at discharge # RUE pain # Fibromyalgia Reports new aches in her right upper extremity which feel similar to past fibromyalgia flares, feelmuscular and also related to being bedridden. Relieved by massage. No other concerning symptoms with this. - Scheduled APAP - celecoxib 100 mg BID prn - Lidocaine patches PRN - Voltaren gel PRN # Anxiety # Depression # Psychosocial stressors Reports understandable stress given recent events. Denied SI/HI. 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 - Hydroxyzine PRN -monitor mood # History of ASD, repaired: Per chart, has Amplatz septal occluder device in place. # Insomnia - TELEPHONE LINEMAN Atarax 50 mg at bedtime - TELEPHONE LINEMAN Trazodone 100 mg at bedtime # Asthma - TELEPHONE LINEMAN Breo Ellipta qday # Constipation - TELEPHONE LINEMAN Magnesium oxide 400 mg at bedtime - PRN Senna # Seasonal allergies - Zyrtec 10 mg qday # Sleep - Trazodone 100 mg at bedtime - evaluate need during rehab stay # Asthma - TELEPHONE LINEMAN Breo Ellipta qday # Bowel: States current regimen helps her stay regular. - Psyllium daily - Magnesium oxide 400 mg at bedtime - PRN bowel meds available Adjustment to disability: Clinical psychology to eval and treat as indicated. FEN: reg/thin Bowel: monitor Bladder: monitor DVT Prophylaxis: lovenox- GI Prophylaxis: none Code: full Disposition: home ELOS: ~5 days. Rehab prognosis: good Follow up Appointments on Discharge: pcp, neurology, neuro IR discussed with Dr. Del Angel , PM&R staff physician Danya You PA-C Physical Medicine & Rehabiltiation Associated attestation - Parminder Del Angel MD - 01/23/2024 4:52 PM CDT Physician Attestation I saw and evaluated Alcon Zamora as part of a shared HAUNTED HISTORY TOUR GUIDE/PA visit. I personally reviewed the vital signs, medications, and labs. I personally provided a substantive portion of care for this patient and I approve the care plan aswritten by the MONICA. I was involved with Medical Decision Making including: Please see A&P for additional details of medical decision making. PARMINDER DEL ANGEL MD Date of Service (when I saw the patient): 01/22/24 documented in this encounter Consult Notes * Bárbara Bedolla, [facility] - 01/22/2024 2:46 PM CDT Pt was initially admitted to [facility] ARU on 01/17/24 and SW assessment was completed on Saturday01/19/24 by Leanna LI. Assessment copied below. Chart review completed. Pt work ppwk completed and sent to her employer prior to return from ARU. No immediate SW needs. SW will remain available and continue to follow during ARU stay. MARA Rodriguez [facility] Acute Inpatient Rehab Endocrinology Teacher PH: [phone] & Email: [email or web address] ----- Social Work: Initial Assessment with Discharge Plan [...] Care Agent: EMERITA Living Situation: Lives with Emilie, in split level home , [address] [facility] home with rail in front door, no rail in garage (also 2 [address]), 8-9 steps to get to a floor with a bedroom or bathroom. Previous Functional Status: Pt was independent with all ADLs/IADLs, transfers, mobility and gait with no assistive device. DME available: See therapy evaluation for more information Patient and family understanding of hospitalization: appropriate Cultural/Language/Spiritual Considerations: Pt is a 48 yr old female, , , macanese speaking, no affiliated voodoo or consideration Physical Health Reason for admission: CHIEF COMPLAINT Cerebral infarct of the frontal lobes, parietal lobes, left supramarginal gyrus, embolic in nature,likely procedural complication HISTORY OF PRESENT ILLNESS Alcon Zamora is a 48 year old female with past medical history of Lizy-Danlos syndrome, mild persistent asthma, anxiety and depression, fibromyalgia presented for a planned catheter angiogram at [facility] for left sided pulsatile tinnitus on 01/09/24, found to have multiple acute ischemic infarcts of the frontal lobes, parietal lobes and left supramarginal gyrus after procedure with associated right sided weakness and numbness, likely embolic in nature secondary to procedure complication, complicated by post-stroke seizures, now being admitted on 01/17/2024 at [facility] for acute inpatient rehabilitation. Provider Information Primary Care Physician: Denies Woodson [phone] PAULA [facility] [id number] ARU [facility] will schedule PCP apt at discharge. Nurse'S Assistant: EMILY Mental Health/Chemical Dependency: Diagnosis: Pt reported history [...] discussed Support System Marital Status: Family support: Emilie (), Silas (son), Erica (daughter) in [place], Kenji (son) in [place]. Pt has 2 granddaughters. Other support available: emily Community Resources Current in home services: Pt denies current home services. 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 Income Source: Pt work and also works Education: not discussed Financial Concerns: Pt reported trying to figure out short term disability and FMLA. Dual householdand need to figure out finances. Pt will talk to work on Saturday for FMLA paperwork. PT reported short term disability won't start until 30 days. Informed Pt to get FMLA paperwork and give it directlyto Doctor. Insurance: Tagwhat/Tagwhat OPEN ACCESS Discharge Plan Patient and family discharge goal: TBD, pending progress. Goal is to go home. Provided Education on discharge plan: Evaluations and discharge recommendations pending. Patient agreeable to discharge plan: Pending further discussion. Evaluations and discharge recommendations pending. Provided education and attained signature for Medicare IM and IRF Patient Rights and Privacy Information provided to patient : NA Provided patient with [facility] Resources: Provided booklet and [facility]. Barriers to discharge: none at the moment Discharge Recommendations Disposition: See above Transportation Needs: Additional comments Discharge TBD, ELOS +/- 14 days . Evals and discharge needs pending. SW will remain available and continue to follow as needs arise. Pt would like information on how to transfer her care to [place]. Doesn't want to go back to [place]. VIDHYA Pain Assessment Pain Effect on Sleep [...] pain? 1. Rarely or not at all MARA Cortez [facility] Endocrinology Teacher Social Work [address] [place] [phone] (PH [phone] or [phone]) documented in this encounter Miscellaneous Notes * Plan of Care - Jaye Maddox RN - 01/26/2024 11:28 AM CDT Goal Outcome Evaluation:Pt alert and oriented x4. Able to make needs known. Independent in the room. Continent of bowel and bladder. LBM 5/10 .On regular diet, thin liquids and able to take pills whole. Pt discharged home today accompanied by . All discharge instruction and medication given to patient and family. Pt able to get into the car independently with no problem. * Plan of Care - Danya Ricks PT - 01/26/2024 10:53 AM CDT Physical Therapy Discharge Summary Reason for therapy discharge: Discharged to home with outpatient therapy. Progress towards therapy goal(s). See goals on Care Plan in [facility] electronic health record for goal details. Goals met Therapy recommendation(s): Continued therapy is recommended. Rationale/Recommendations: Recommend OP PT for progressing higherlevel dynamic balance. Pt score above falls risk threshold, however requests FWW at discharge, issued from facility. Outcome Measures: FGA 01/13 on on 01/21/24 22/30 on 01/24 TU.5 seconds without AD, 9 seconds w/ FWW on 01/22 * Plan of Care - Mel Nova RN - 01/26/2024 2:02 AM CDT Goal Outcome Evaluation: Overall Patient Progress: no change Outcome Evaluation: No change in Pt progress this shift Pt is A/O x4. No impulsive behavior overnight, call appropriately to make needs known. Denied SOB, chest pain, or new symptoms. C/o pain, scheduled Tylenol given early per pt request - see NOV. Continent B/B, LBM 01/24. Transfers independently in room without AD. Pt appeared asleep between cares. Fall precautions in place, call light in reach, bed alarm on. Plan of care ongoing. * Plan of Care - Ashlyn Pryor RN - 01/25/2024 10:43 PM CDT Goal Outcome Evaluation: Plan of Care Reviewed With: patient Overall Patient Progress: improvingOverall Patient Progress: improving Outcome Evaluation: Pt alert and oriented x4. VSS C/o mild YANG, scheduled tylenol given. Continent of bowel and bladder, LBM today. Pt report right side numbness/weakness improved. Stroke handout given to pt and reviewed with pt, pt verbalized understanding. Plan to discharge home tomorrow. * Plan of Care - Parminder Del Angel MD - 01/25/2024 3:36 PM CDT Individualized Overall Plan Of Care (IOPOC) Rehab diagnosis/Impairment Group Code: 01.2 right body, left brain stroke, multiple acute ischemic infarcts in the frontal and parietal lobes, left supramarginal gyrus following angiogram Stroke (h) Expected functional outcome: To reach a level of modified independence prior to discharge Clinical Impression Comments: 48-year-old female admitted to ARU with multiple acute ischemic infarcts of the frontal lobes, parietal lobes and left supramarginal gyrus complicated by poststroke seizures. Mobility: Pt presents with impairments in sensory detection/weighting, vision, dynamic balance, andactivity tolerance/endurance following CVA and post-stroke seizures. Pt lives with spouse who worksduring the day, with goal for Imtiaz household mobility at discharge. Pt will benefit from ~5 days IPrehab for progressing to Imtiaz for all household mobility, with OP PT follow up at discharge ADL: Pt admitted to ARU s/p CVA following readmission to acute care in context of suspected seizureactivity. Pt previously IND ADLs and high level IADLs; currently requires increased assist for select ADLs and IADLs. Performance primarily limited by R sensory deficits, vision deficits, cognitive changes, and fatigue impairing dynamic balance, activity tolerance, and coordination in tasks. Pt Imtiaz in room FWW-based toileting and dressing tasks. Anticipate short stay with goals to progress to Mod I all ADLs and light IADLs. Plan to discharge home with IADL A from spouse and son in evening, Mod I during daytime when family at work. ELOS 5 days . Communication/Cognition/Swallow: [employer]: Motor speech, language intact. RBANS form B administered and interpreted. Pt with improvement in overall score, delayed memory and attention domains. Pt with lower score in visuospatial domain, reported vision blurrier than prior administration. Skilled [employer] services indicated to train in cognitive strategies, instruct in therapeutic activities to promote cognitive function. Intensity of therapy: PT 60 minutes, 6x/week, for 7 days OT 60 minutes, 6 times/week, for 7 days [employer] 60 minutes, 6 times/week, for 7 days Medical Prognosis: Good prognosis to achieve medical stability Physician summary statement: Patient has made reasonable gains in a short period of time while on rehab and is anticipated to be able to discharge to home with modified independence. Discharge destination: prior home Discharge rehabilitation needs: outpatient, PT, OT, and [employer] Estimated length of stay: 7 days Rehabilitation Physician PARMINDER DEL ANGEL MD * Plan of Care - Jaye Maddox RN - 01/25/2024 1:36 PM CDT Goal Outcome Evaluation:Pt alert and oriented x4. Able to make needs known. Independent in the room. Continent of bowel and bladder. LBM 01/22.On regular diet, thin liquids and able to take pills whole. C/O headache which was relieved by scheduled tylenol. Call light within reach * Plan of Care - Suraj Rivera SLP - 01/25/2024 12:19 PM CDT Machine Cloth Examiner Post-Acute Rehab [employer]: Discharge Plan: home with , ongoing OP [employer] Precautions: seizure Current Status: Hearing: WFL Vision: Glasses- reporting vision blurry Communication: Motor speech, language intact Cognition: Mild cognitive impairment- attention and reasoning/problem solving. Swallow: Regular solids/thin liquids (0). Not formally evaluated on ARU. Assessment: A.M.: Trained pt in new/unfamiliar tasks- moderate level Sudoku and deductive reasoning puzzles. Ptdemo'd learning both tasks, completed with 100% accuracy. P.M.: Reviewed assigned deductive reasoning and Sudoku puzzles, pt complete with 100% independent accuracy. Instructed pt in money counting task of ELBERT, pt completed with 100% independent accuracy. Instructed pt in recall task, pt recalled 70% details. With second opportunity to review details, 100% recalled. Other Barriers to Discharge (Family Training, etc): None from [employer] perspective * Pharmacy-Admission Medication History - Isael Cevallos RPH - 01/25/2024 10:01 AM CDT Please see Admission Medication History completed on 01/20/24 under previous encounter at [facility] for information regarding prior to admission medications. Isael Cevallos PGY1 Water Superintendent * Plan of Care - Danya Ricks PT - 01/25/2024 9:27 AM CDT Machine Cloth Examiner Post-Acute Rehab PT: Discharge Plan: home with spouse, OP PT Precautions: seizure, fall Current Status: Bed Mobility: mod ind Transfer: Imtiaz with FWW, SBA without AD Gait: IND in room during the day (Imtiaz in halls w/ FWW), Stairs: SBA with B rails, reciprocal pattern 12x6'' steps Balance: intact seated, mild dynamic balance impairments Outcome Measures: FGA on 01/21/24 (at hospital): 01/13 01/24: TU.5 seconds without AD, 9 seconds w/ FWW on 01/22 Assessment: Re-test FGA today, pt scores on threshold of statistical falls risk category, educated on given pt rapid progress in dynamic balance, no AD necessary for home unless pt preference to doso. Pt plans to have spouse present for out of home outings. Pt on track for discharge tomorrow after family training (06-27). Other Barriers to Discharge (DME, Family Training, etc): FT scheduled for Thursday 01/25 from 10am - 12 PM * Plan of Care - Marlene Lui RN - 01/25/2024 5:02 AM CDT Goal Outcome Evaluation: Overall Patient Progress: no change Outcome Evaluation: No change in Pt progress this shift. Pt is alert and oriented. Continent of B&B. LBM 01/23. Independent in room, MOD I with walker inhallway. Denied pain, SOB, and CP. Call light within reach. Pt slept through majority of the shift.Will continue with POC. * Plan of Care - Ashlyn Pryor RN - 01/24/2024 10:42 PM CDT Goal Outcome Evaluation: Plan of Care Reviewed With: patient Overall Patient Progress: improvingOverall Patient Progress: improving Outcome Evaluation: Pt alert and oriented x4, VSS. C/o mild headache, managed with scheduled tylenol. Independent in room, Mod I with walker in halls for functional mobility. Continent of bowel and bladder, LBM today per pt. Pt needs stroke education before discharge. * Plan of Care - Jaye Maddox RN - 01/24/2024 1:58 PM CDT Goal Outcome Evaluation: Pt alert and oriented x4. Able to make needs known. Independent in the room. Continent of bowel and bladder. LBM 5/9.On regular diet, thin liquids and able to take pills whole. C/O headache which was relieved by scheduled tylenol. Call light within reach. * Plan of Care - Suraj Rivera SLP - 01/24/2024 11:15 AM CDT Machine Cloth Examiner Post-Acute Rehab [employer]: Discharge Plan: home with , ongoing OP [employer] Precautions: seizure Current Status: Hearing: WFL Vision: Glasses- reporting vision blurry Communication: Motor speech, language intact Cognition: Mild cognitive impairment- attention and reasoning/problem solving. Swallow: Regular solids/thin liquids (0). Not formally evaluated on ARU. Assessment: A.M.: Pt reported recording questions for MD/PA in phone notes monica to ensure she remembers what they are when they see her, verbally reinforced pt's independent use of external memory strategies. PA arrived during session to JUAN lloyd utilized opportunity to probe pt's independent use/carryover ofstrategy, pt recalled 2/3 questions indepenently, looked at note monica to ask third. Instructed pt in medication label reading task of ELBERT, pt completed with 90% independent accuracy,required moderat cues from SUPERVIS[employer]ING [employer] for pill placement first opportunity (1 tablet 4x a day). P.M.: Instructed pt in higher level cognitive ask with alternating attention, visual scanning and working memory components. Pt demo'd increased accuracy, speed with task with each opportunity; verbalized being very pleased at her performancfe. Other Barriers to Discharge (Family Training, etc): None from [employer]PER[employer] perspective * Plan of Care - Danya Ricks PT - 01/24/2024 8:09 AM CDT Machine Cloth Examiner Post-Acute Rehab PT: Discharge Plan: home with spouse, OP PT Precautions: seizure, fall Current Status: Bed Mobility: mod ind Transfer: Imtiaz with FWW, SBA without AD Gait: mod ind in room with walker during the day (SBA at night or in halls), CGA-SBA without AD Stairs: SBA with B rails, reciprocal pattern 12x6'' steps Balance: Impaired dynamic balance, compensates well with walker; able to stand without UE support to manage clothes at toilet but needs CGA-Dania for ambulation without AD Outcome Measures: FGA on 01/21/24 (at hospital): 01/13 TU.5 seconds without AD, 9 seconds w/ FWW on 01/22 Assessment: Pt with improvement in amb w/o AD while reducing gaze on feet using ball toss task. During session pt endorses distorted vision, VSS, sx reduced when transitioning from balance task to Nustep. Planning for FGA tomorrow to re- assess falls risk w/o AD, pt continues to appear less guarded when amb w/o AD. Other Barriers to Discharge (DME, Family Training, etc): FT scheduled for Thursday 01/25 from 10am - 12 PM DME- potentially FWW pending progress * Plan of Care - Sameer Boothe RN - 01/23/2024 7:14 PM CDT Goal Outcome Evaluation: Patient is alert and oriented. Pleasant and cooperative. Patient reports thinking more clearly today than since she had the stroke. Patient was able to go outside with spouse in afternoon. Patient transfers IND with walker Vital signs this shift B/P: 123/47, T: 98.1, P: 75, R: 18 Patient is able to make needs known, uses the call light appropriately. Continue with the plan of care. . * Plan of Care - Danya Ricks PT - 01/23/2024 4:19 PM CDT Machine Cloth Examiner Post-Acute Rehab PT: Discharge Plan: home with spouse, OP PT Precautions: seizure, fall Current Status: Bed Mobility: mod ind Transfer: Imtiaz with FWW, CGA without AD Gait: mod ind in room with walker during the day (SBA at night or in halls), CGA without AD Stairs: SBA with B rails, reciprocal pattern 12x6'' steps Balance: Impaired dynamic balance, compensates well with walker; able to stand without UE support to manage clothes at toilet but needs CGA-Dania for ambulation without AD Outcome Measures: FGA on 01/21/24 (at hospital): 01/13 TU.5 seconds without AD, 9 seconds w/ FWW on 01/22 Assessment: Pt presents with impairments in sensory detection/weighting, vision, dynamic balance, and activity tolerance/endurance following CVA and post-stroke seizures. Pt lives with spouse who works during the day, with goal for [facility] household mobility at discharge. Pt will benefit from ~5 days IP rehab for progressing to [facility] for all household mobility, with OP PT follow up at discharge Other Barriers to Discharge (DME, Family Training, etc): FT scheduled for Thursday 01/25 from 10am - 12 PM DME- potentially FWW pending progress * Pharmacy-Medication Regimen Review - Maryse Martin [facility] - 01/23/2024 1:11 PM CDT Pharmacy Medication Regimen Review Alcon Zamora is a 48 year old female who is currently in the Acute Rehab Unit. Assessment: All medications have appropriate indications, durations and no unnecessary use was found Plan: Attending provider will be sent this note [...] recommendations. Current Facility-Administered Medications: acetaminophen (TYLENOL) tablet 1,000 mg, 1,000 mg, Oral, TID, Danya You PA, 1,000 mg at 01/23/24 0759 albuterol (PROVENTIL HFA/VENTOLIN HFA) inhaler, 2 puff, Inhalation, Q4H PRN, Danya You PA aspirin (ASA) EC tablet 325 mg, 325 mg, Oral, Daily, Danya You PA, 325 mg at 01/23/24 0759 bisacodyl (DULCOLAX) suppository 10 mg, 10 mg, Rectal, Daily PRN, Danya You PA calcium carbonate (TUMS) chewable tablet 500 mg, 500 mg, Oral, 4x Daily PRN, Danya You PA celecoxib (celeBREX) capsule 100 mg, 100 mg, Oral, BID PRN, Danya You PA cetirizine (zyrTEC) tablet 10 mg, 10 mg, Oral, Daily, Danya You PA, 10 mg at 01/23/24 0759 diclofenac (VOLTAREN) 1 % topical gel 2 g, 2 g, Topical, 4x Daily PRN, Danya You PA fluticasone-vilanterol (BREO ELLIPTA) 200-25 MCG/ACT inhaler 1 puff, 1 puff, Inhalation, Daily, Danya You PA, 1 puff at 01/23/24 0800 hydrOXYzine HCl (ATARAX) tablet 50 mg, 50 mg, Oral, TID PRN, Danya You PA hydrOXYzine HCl (ATARAX) tablet 50 mg, 50 mg, Oral, At Bedtime, Danya You PA, 50 mg at 01/22/24 2136 levETIRAcetam (KEPPRA) tablet 750 mg, 750 mg, Oral, BID, Danya You PA, 750 mg at 802 Lidocaine (LIDOCARE) 4 % Patch 1 patch, 1 patch, Transdermal, Q24H, Danya You PA magnesium oxide (MAG-OX) half-tab 200 mg, 200 mg, Oral, At Bedtime, Danya You PA, 200 mg at 01/22/24 213 methyl salicylate-menthol (ICY HOT) ointment, , Topical, Q6H PRN, Danya You PA ondansetron (ZOFRAN ODT) ODT tab 4 mg, 4 mg, Oral, Q6H PRN, Danya You PA Patient is already receiving anticoagulation with heparin, enoxaparin (LOVENOX), warfarin (COUMADIN) or other anticoagulant medication, , Does not apply, Continuous PRN, Danya You PA psyllium (METAMUCIL/KONSYL) Packet 1 packet, 1 packet, Oral, Daily, Danya You PA, 1 packet at 01/23/24 0802 rosuvastatin (CRESTOR) tablet 20 mg, 20 mg, Oral, At Bedtime, Danya You PA, 20 mg at 01/22/24 213 senna-docusate (SENOKOT-S/PERICOLACE) 8.6-50 MG per tablet 1 tablet, 1 tablet, Oral, BID PRN, Danya You PA traZODone (DESYREL) tablet 100 mg, 100 mg, Oral, At Bedtime, Danya You PA, 100 mg at 01/22/24 213 No current outpatient prescriptions on file. Maryse Martin, [facility] PharmD,BCPS January 23, 2024 Associated attestation - Parminder Del Angel MD - 01/23/2024 6:37 PM CDT I have reviewed your recommendations and will implement changes and/or monitor as suggested. Thank you for your help. 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 Swallow: Regular solids/thin liquids (0). Not formally evaluated on ARU. Assessment: Motor speech, language intact. RBANS form B administered and interpreted. Pt with improvement in overall score, delayed memory and attention domains. Pt with lower score in visuospatial domain, reported vision blurrier than prior administration. Skilled [employer] services indicated to train in cognitive strategies, instruct in therapeutic activities to promote cognitive function. Other Barriers to Discharge (Family Training, etc): None from [employer] perspective * Plan of Care - Escobar David RN - 01/23/2024 6:55 AM CDT FOCUS/GOAL Pain management, Safety management, and Prevention of secondary complications ASSESSMENT, INTERVENTIONS AND CONTINUING PLAN FOR GOAL: Last PVR needed obtained this morning of 89. Complaints of headache rated 4 out of 10 in evening, scheduled tylenol given. Standby assist with walker. A&Ox4. Slept soundly throughout the night with no interruptions. Continent x2, LBM 5/7. Goal Outcome Evaluation: * Plan of Care - Parminder Del Angel MD - 01/23/2024 3:23 AM CDT Acute Rehab Care Conference/Team Rounds Type: Team Rounds Present: Dr. Parminder Del Angel, Danya You PA, Dr. Dahlia Hernandez Neuropsychologist, Danya Ricks PT, Nicolás Kauffman OT, Suraj Rivera [employer], Bárbara Bedolla [facility], Tamar Jeffery RD, Sameer Boothe RN, and Alcon Zamora Patient. Discharge Barriers/Treatment/Education Rehab Diagnosis: Multifocal stroke Active Medical Co-morbidities/Prognosis: Patient Active Problem List Diagnosis Generalized anxiety [...] right upper extremity Fibromyalgia Dural arteriovenous fistula Safety: Pain: Medications, Skin, Tubes/Lines: Swallowing/Nutrition: Regular solids/thin liquids (0), to be determined this day if clinical swallow evaluation indicated. Bowel/Bladder: Continent Psychosocial: Lives with emilie in a split-level home. 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 Depression and anxiety. No substance abuse reported. No financial concerns. Good family support. ADLs/IADLs: Pending evaluation. Mobility: Pt undergoing therapy evaluations today, mobility status TBD. Cognition/Language: To be evaluated this day. Community Re-Entry: Pending therapy evaluations Transportation: Pending therapy evaluations Decision maker: self Plan of Care and goals reviewed and updated. Discharge Plan/Recommendations Fall Precautions: continue Estimated length of stay: 7 days Overall plan for the patient: High intensity therapy at 3 hours/day addressing deficits in ADLs secondary to recent stroke. Utilization Review and Continued Stay Justification Medical Necessity Criteria: For any criteria that is not met, please document reason and plan for discharge, transfer, or modification of plan of care to address. Requires intensive rehabilitation program to treat functional deficits?: Yes Requires 3x per week or greater involvement of rehabilitation physician to oversee rehabilitation program?: Yes Requires rehabilitation nursing interventions?: Yes Patient is making functional progress?: Yes There is a potential for additional functional progress? Yes Patient is participating in therapy 3 hours per day a minimum of 5 days per week or 15 hours per week in 7 day period?:Yes Has discharge needs that require coordinated discharge planning approach?:Yes Final Physician Sign off Statement of Approval: I have reviewed this document and aprove its content. Patient Goal Social Work Goals: Confirm discharge recommendations with therapy, coordinate safe discharge plan and remain available to support and assist as needed. OT goals - pending evaluation. PT Goals- pending therapy evaluations today [employer] Goals- to be established this day Patient Goal: Pain Management: Pt will be proactive with pain management by requesting pain meds and utilizing non pharmachological methods of pain control during ARU stay. Patient/Family Goal: Medication Management: Pt will be knowledgeable of her meds and will demonstrate ability to manage her meds safely before discharge. Goal: Skin Integrity: Pt will demonstrate understanding of maintaining skin integrity by turning and repositioning frequently to prevent skin breakdown during ARU stay. * Plan of Care - Syed Giraldo RN - 01/22/2024 7:41 PM CDT Goal Outcome Evaluation: Plan of Care Reviewed With: patient Overall Patient Progress: no changeOverall Patient Progress: no change Outcome Evaluation: Pt is a return to acute rehab after being transferred to [facility] for seizure work up. Transferred with CGA from w/c to bed. Given reorientation to ARU. PT did eval and gave ok for pt to be mod I in room with walker. Able to manage toileting independently after that. * Plan of Care - Jaleesa Ashford, PT - 01/22/2024 4:56 PM CDT Machine Cloth Examiner Post-Acute Rehab PT: Discharge Plan: home with spouse, likely OP PT Precautions: seizure, fall Current Status: Bed Mobility: mod ind Transfer: mod ind with walker, CGA without AD Gait: mod ind in room with walker during the day (SBA at night or in halls), CGA-Dania for balance adjustments without AD Stairs: not yet tested Balance: Impaired dynamic balance, compensates well with walker; able to stand without UE support to manage clothes at toilet but needs CGA-Dania for ambulation without AD Outcome Measures: FGA on 01/21/24 (at hospital): 01/13 Assessment: Pt admitted to ARU with recent cerebral angiogram (01/08) complicated by multifocal stroke (01/12). She was recently at [facility] 01/16-01/18, then admitted to hospital 01/18-01/21 for work up due to seizure at ARU, now re-admitted to ARU for ongoing rehab. Seen for eval-hold today 01/22/24. Pt mobilizing fairly well with walker but with dynamic balance deficit when walker support removed. Approved for mod ind in room during the day with walker, recommend SBA at night. Full PT eval to be completed tomorrow. Other Barriers to Discharge (DME, Family Training, etc): Multi level split home with no bathroom on main level- may be challenging to have walker as home ADdue to multiple flights of stairs to manage at home documented in this encounter Plan of Treatment Upcoming Encounters Date Type Department Care Team (Late st Contact Info) Description 02/03/2024 8:45 AM CDT Therapy Visit [facility] [address] [phone] Denise Woodson Ra, HAUNTED HISTORY TOUR GUIDE CAKE WINDER [address] [place] [address] Addis Rojas, PT [facility] [address] [place] [address] 02/04/2024 PRE VISIT [facility] [address] [phone] Raul Hoyos MD [address] [place] [id number] *-*INCOMING RECORDS*-* 02/04/2024 11:00 AM CDT Virtual Visit [facility] [address] [phone] Raul Hoyos MD [address] [place] [address] 02/06/2024 8:30 AM CDT Office Visit [facility] [address] [place] [phone] Denise Woodson Ra, BARRERA HUBBARD [address] [place] [address] 02/07/2024 2:00 PM CDT Therapy Visit [facility] [address] [place] [phone] Danya You, PA [address] [place] [address] [phone] Charis Chacon SLP [facility] [address] [place], [place] [address] 02/14/2024 12:45 PM CDT Therapy Visit [facility] [address] [place] [phone] Danya You, PA [address] [place] [address] 204774 Isabel Beaulieu, OTR [address] [address] 02/14/2024 2:00 PM CDT Therapy Visit [address] [phone] Danya You, PA [address] [place] [address] 595594 Charis Chacon SLP [facility] [address] [place], [place] 479[address] 02/14/2024 2:45 PM CDT Therapy Visit [facility] [address] [place] [phone] Danya You PA 2450 [facility] [address] [place] [address] Maria Eugenia Nguyen, PT [address] [place] [address] 02/17/2024 2:45 PM CDT Therapy Visit [facility] [address] [place] [address] Danya You PA [address] [facility] [address] [address] Aliya Kim, [employer] [address] [address] 02/19/2024 3:00 PM CDT Therapy Visit [address] [phone] Danya You, PA [address] [address] Isabel Beaulieu, OTJah [address] [address] 02/26/2024 2:15 PM CDT Therapy Visit [address] [phone] Danya You, AMAIRANI [address] [address] Charis Chacon, JUAN [facility] [address] [place] [address] 02/26/2024 3:00 PM CDT Therapy Visit [facility] [address] [place] [phone] Danya You PA [address] [place] [address] Isabel Beaulieu, OTR [facility] [address] [place] [address] 02/27/2024 4:45 PM CDT Therapy Visit [address] [phone] Danya You, PA [address] [place], [place] [address] Vaenssa Duggan, PT 03/05/2024 1:30 PM CDT Therapy Visit [address] [phone] Danya You, AMAIRANI [address] [facility] [address] [place] [address] Isabel Beaulieu OTR [address] [address] 03/05/2024 3:15 PM CDT Therapy Visit [address] [phone] Danya You PA [address] [facility] [address] [place] [address] Charis Chacon, SUPERVISOR PARKING LOT [facility] [address] [place] [address] 03/05/2024 4:15 PM CDT Therapy Visit [address] [phone] Danya You, AMAIRANI [address] [address] Delicia George, PT [address] [address] 03/11/2024 2:15 PM CDT Therapy Visit [address] [phone] Danya You, AMAIRANI [facility] [address] [address] Isabel Beaulieu, OTR [address] [address] 03/11/2024 3:00 PM CDT Therapy Visit [address] [phone] Danya You, PA [facility] [address] [address] Charis Chacon, JUAN [facility] [address] [place] [address] 03/11/2024 4:15 PM CDT Therapy Visit [address] [phone] Danya You, PA [facility] [address] [address] Delicia George, PT [facility] [address] [place] [address] 03/17/2024 1:30 PM CDT Therapy Visit [address] [phone] Danya You, PA [facility] [address] [address] Isabel Beaulieu, JAIMIE [address] [address] 03/17/2024 2:30 PM CDT Therapy Visit [address] [phone] Danya You, PA [facility] [address] [address] Charis Chacon, [facility] [address] [place] [address] 03/17/2024 4:00 PM CDT Therapy Visit [address] [phone] Danya You, PA [facility] [address] [address] Delicia George, PT [facility] [address] [place] [address] 03/23/2024 10:30 AM CDT Office Visit [address] [phone] Denise Woodson Ra, HAUNTED HISTORY TOUR GUIDE CAKE WINDER [address] [facility] [address] 03/26/2024 1:30 PM CDT Therapy Visit [address] [phone] Danya You, AMAIRANI [facility] [address] [address] Isabel Beaulieu, OTR [address] [address] 03/26/2024 2:30 PM CDT Therapy Visit [address] [phone] Danya You, AMAIRANI [facility] [address] [address] Charis Chacon, [facility] [address] [place] [address] 03/26/2024 3:30 PM CDT Therapy Visit [address] [phone] Danya You, PA [address] [place] [address] Delicia George, PT [facility] [address] [place] [address] 04/02/2024 2:15 PM CDT Therapy Visit [address] [phone] Danya You, PA [address] [place] [address] [place] [address] Isabel Beaulieu, OTR [facility] [address] [place] [address] 04/02/2024 3:15 PM CDT Therapy Visit [address] [phone] Danya You, PA [address] 4723[address] Charis Chacon, JUAN [facility] [address] [place] [address] 04/02/2024 4:15 PM CDT Therapy Visit [address] [phone] Danya You, PA [address] [address] Delicia George, PT [facility] [address] [place] [address] 04/09/2024 3:15 PM CDT Therapy Visit [address] [phone] Danya You, PA [address] [address] Charis Chacon, JUAN [facility] [address] [place], [place] [address] 04/09/2024 4:15 PM CDT Therapy Visit [address] [phone] Danya You, PA [address] [facility] J[address] [address] Delicia George, PT [facility] [address] [place] [address] 04/15/2024 9:30 AM CDT Therapy Visit [address] [phone] Danya You, PA [address] [address] Danya Restrepo, [employer] 04/23/2024 2:30 PM CDT Therapy Visit [address] [phone] Danya You, PA [address] [place] [address] [address] Charis Chacon, JUAN [facility] [address] [place] [address] 06/23/2024 11:00 AM CDT Virtual Visit [facility] [address] [place] [phone] Kristin Vázquez, [facility] [address] [facility] [place] [facility] [place] [phone] 06/30/2024 2:00 PM CDT Virtual Visit [facility] [address] [place] [address] Kristin Vázquez, [facility] [address] [facility] [place] [address] Scheduled Referrals Name Type Priority Associated Diagnoses Orde r Schedule Physical Therapy Leather Cartridge Belt Maker Referral Referral Routine Cerebrovascular accident (CVA), unspecified mechanism (H) Expected: 01/24/2024 (Approximate), Expires: 01/23/2025 Occupational Therapy Leather Cartridge Belt Maker Referral Referral Routine Cerebrovascular accident (CVA), unspecified mechanism (H) Expected: 01/24/2024 (Approximate), Expires: 01/23/2025 Speech Therapy Leather Cartridge Belt Maker Referral Referral Routine Cerebrovascular accident (CVA), unspecified mechanism (H) Expected: 01/24/2024 (Approximate), Expires: 01/23/2025 Adult Mental Health Leather Cartridge Belt Maker Referral Referral Routine: Next available opening Mild recurrent major depression (H24) Expected: 01/26/2024 (Approximate), Expires: 01/25/2025 documented as of this encounter Visit Diagnoses Diagnosis Cerebrovascular accident (CVA), unspecified mechanism (H)- Primary Fibromyalgia Mylagia and myositis, unspecified Pain of right upper extremity Generalized anxiety disorder History of seizure Mild recurrent major depression (H24) Major depressive disorder, recurrent episode, mild Stroke (H) Unspecified cerebral artery occlusion with cerebral infarction documented in this encounter Administered Medications Inactive Administered Medications - up to 3 most recent administrations Medication Order MAR Action Action Date Dose Rate Site acetaminophen (TYLENOL) tablet 1,000 mg 1,000 mg, Oral, 3 TIMES DAILY, First dose on Sat01/22/24 at 2100, Maximum acetaminophen dose from all sources = 75 mg/kg/day not to exceed 4 gram $Given 01/26/2024 4:19 AM CDT 1,000 mg $Given 01/25/2024 9:51 PM CDT 1,000 mg $Given 01/25/2024 1:15 PM CDT 1,000 mg aspirin (ASA) EC tablet 325 mg 325 mg, Oral, DAILY, First dose on Sat01/23/24 at 0800, DO NOT CRUSH. $Given 01/26/2024 8:05 AM CDT 325 mg $Given 01/25/2024 8:09 AM CDT 325 mg $Given 01/24/2024 8:36 AM CDT 325 mg cetirizine (zyrTEC) tablet 10 mg 10 mg, Oral, DAILY, First dose on Sat01/23/24 at 0800 $Given 01/26/2024 8:05 AM CDT 10 mg $Given 01/25/2024 8:09 AM CDT 10 mg $Given 01/24/2024 8:36 AM CDT 10 mg enoxaparin ANTICOAGULANT (LOVENOX) injection 40 mg 40 mg, Subcutaneous, EVERY 24 HOURS, First dose on Sat01/22/24 at 1500 $Given 01/22/2024 4:59 PM CDT 40 mg fluticasone-vilanterol (BREO ELLIPTA) 200-25 MCG/ACT inhaler 1 puff 1 puff, Inhalation, DAILY, First dose on Sat01/23/24 at 0800, *Do not use more frequently than once daily.* Rinse mouth after use. Check the dose counter on the inhaler to ensure there are doses remaining before administering. $Given 01/26/2024 8:05 AM CDT 1 puff $Given 01/25/2024 8:10 AM CDT 1 puff $Given 01/24/2024 8:40 AM CDT 1 puff hydrOXYzine HCl (ATARAX) tablet 50 mg 50 mg, Oral, AT BEDTIME, First dose (after last modification) on Sat01/22/24 at 2100 $Given 01/24/2024 9:04 PM CDT 50 mg $Given 01/23/2024 8:39 PM CDT 50 mg $Given 01/22/2024 9:36 PM CDT 50 mg levETIRAcetam (KEPPRA) tablet 750 mg 750 mg, Oral, 2 TIMES DAILY, First dose on Sat01/22/24 at 2100 $Given 01/26/2024 8:05 AM CDT 750 mg $Given 01/25/2024 9:51 PM CDT 750 mg $Given 01/25/2024 8:09 AM CDT 750 mg Lidocaine (LIDOCARE) 4 % Patch 1 patch 1 patch, Transdermal, EVERY 24 HOURS, Administer over 12 Hours, First dose on Sat01/23/24 at 0800, Apply patch(s) to upper back To prevent lidocaine toxicity, patient should be patch free for 12 hrs daily. Patches may be cut to smaller size prior to removing release liner. Reminder: Remove previous patch before applying new patch. NEVER APPLY HEAT OVER PATCH which increases absorption and may lead to local anesthetic toxicity. Do not apply over area where liposomal bupivacaine was injected for 96 hours post injection. $Patch/Med Applied 01/26/2024 8:03 AM CDT 1 patch Other (see comments) $Patch/Med Applied 01/25/2024 8:08 AM CDT 1 patch Other (see comments) $Patch/Med Applied 01/24/2024 8:37 AM CDT 1 patch Other (see comments) magnesium oxide (MAG-OX) half-tab 200 mg 200 mg, Oral, AT BEDTIME, First dose on Sat01/22/24 at 2200 $Given 01/25/2024 9:51 PM CDT 200 mg $Given 01/24/2024 9:05 PM CDT 200 mg $Given 01/23/2024 8:39 PM CDT 200 mg psyllium (METAMUCIL/KONSYL) Packet 1 packet 1 packet, Oral, DAILY, First dose on Sat01/23/24 at 0800, Powder should be diluted with fluid before given. $Given 01/26/2024 8:05 AM CDT 1 packet $Given 01/25/2024 8:11 AM CDT 1 packet $Given 01/24/2024 8:36 AM CDT 1 packet rosuvastatin (CRESTOR) tablet 20 mg 20 mg, Oral, AT BEDTIME, First dose (after last modification) on Sat01/22/24 at 2100 $Given 01/25/2024 9:51 PM CDT 20 mg $Given 01/24/2024 9:04 PM CDT 20 mg $Given 01/23/2024 8:39 PM CDT 20 mg traZODone (DESYREL) tablet 100 mg 100 mg, Oral, AT BEDTIME, First dose (after last modification) on Sat01/22/24 at 2100 $Given 01/25/2024 9:51 PM CDT 100 mg $Given 01/24/2024 9:04 PM CDT 100 mg $Given 01/23/2024 8:39 PM CDT 100 mg documented in this encounter Active and Recently Administered Medications Times are shown in CDT. Scheduled Medication Order 01/24/2024 01/25/2024 01/26/2024 acetaminophen (TYLENOL) tablet 1,000 mg 1,000 mg, Oral, 3 TIMES DAILY, First dose on Sat01/22/24 at 2100, Maximum acetaminophen dose from all sources = 75 mg/kg/day not to exceed 4 gram 0629 ($Given - Provider: Sasha Alvarado RN)0800 (Canceled Entry - Provider: Sasha Alvarado RN - Comment: given early per pt request)1301 ($Given - Provider: Jaye Maddox RN)1939 ($Given - Provider: Ashlyn Pryor RN) 0809 ($Given - Provider: Jaye Maddox RN)1315 ($Given - Provider: Jaye Maddox RN)2151 ($Given - Provider: Ashlyn Pryor RN) 0419 ($Given - Provider: Mel Nova RN - Comment: Given early per pt request)0800 (Canceled Entry - Provider: Mel Nova RN - Comment: Given early per pt request)1400 (Canceled Entry - Provider: Orders Generic Provider - Comment: Automatically canceled at discontinue of medication order) aspirin (ASA) EC tablet 325 mg 325 mg, Oral, DAILY, First dose on Sat01/23/24 at 0800, DO NOT CRUSH. 0836 ($Given - Provider: Jaye Maddox RN) 0809 ($Given - Provider: Jaye Maddox RN) 0805 ($Given - Provider: Jaye Maddox, GEMA) cetirizine (zyrTEC) tablet 10 mg 10 mg, Oral, DAILY, First dose on Marii 01/23/24 at 0800 0836 ($Given - Provider: Jaye Maddox RN) 0809 ($Given - Provider: Jaye Maddox, GEMA) 0805 ($Given - Provider: Jaye Maddox, RN) fluticasone-vilanterol (BREO ELLIPTA) 200-25 MCG/ACT inhaler 1 puff 1 puff, Inhalation, DAILY, First dose on Marii 01/23/24 at 0800, *Do not use more frequently than once daily.* Rinse mouth after use. Check the dose counter on the inhaler to ensure there are doses remaining before administering. 0840 ($Given - Provider: Jaye Maddox RN) 0810 ($Given - Provider: Jaye Maddox RN) 0805 ($Given - Provider: Jaye Maddox RN) hydrOXYzine HCl (ATARAX) tablet 50 mg 50 mg, Oral, AT BEDTIME, First dose (after last modification) on Sat01/22/24 at 2100 2104 ($Given - Provider: Ashlyn Pryor RN) 215 (Not Given - Provider: Ashlyn Pryor RN - Reason: Patient/family refused) levETIRAcetam (KEPPRA) tablet 750 mg 750 mg, Oral, 2 TIMES DAILY, First dose on Sat01/22/24 at 2100 0836 ($Given - Provider: Jaye Maddox RN)2104 ($Given - Provider: Ashlyn Pryor RN) 0809 ($Given - Provider: Jaye Maddox RN)215 ($Given - Provider: Ashlyn Pryor RN) 0805 ($Given - Provider: Jaye Maddox RN) Lidocaine (LIDOCARE) 4 % Patch 1 patch 1 patch, Transdermal, EVERY 24 HOURS, Administer over 12 Hours, First dose on Sat01/23/24 at 0800, Apply patch(s) to upper back To prevent lidocaine toxicity, patient should be patch free for 12 hrs daily. Patches may be cut to smaller size prior to removing release liner. Reminder: Remove previous patch before applying new patch. NEVER APPLY HEAT OVER PATCH which increases absorption and may lead to local anesthetic toxicity. Do not apply over area where liposomal bupivacaine was injected for 96 hours post injection. 0837 ($Patch/Med Applied - Provider: Jaye Maddox RN - Comment: neck)1939 (Patch/Med Removed - Provider: Ashlyn Pryor RN) 0808 ($Patch/Med Applied - Provider: Jaye aMddox RN - Comment: neck)1999 (Patch/Med Removed - Provider: Ashlyn Pryor RN) 0803 ($Patch/Med Applied - Provider: Jaye Maddox RN)1231 (Due: Patch/Med Removed - Provider: Orders Generic Provider - Comment: Time automatically adjusted from order being discontinued) magnesium oxide (MAG-OX) half-tab 200 mg 200 mg, Oral, AT BEDTIME, First dose on Sat01/22/24 at 2200 2105 ($Given - Provider: Ashlyn Pryor RN) 2150 ($Given - Provider: Ashlyn Pryor RN) psyllium (METAMUCIL/KONSYL) Packet 1 packet 1 packet, Oral, DAILY, First dose on Sat01/23/24 at 0800, Powder should be diluted with fluid before given. 0836 ($Given - Provider: Jaye Maddox RN) 0811 ($Given - Provider: Jaye Maddox, GEMA) 0805 ($Given - Provider: Jaye Maddox RN) rosuvastatin (CRESTOR) tablet 20 mg 20 mg, Oral, AT BEDTIME, First dose (after last modification) on Sat01/22/24 at 2100 2104 ($Given - Provider: Ashlyn Pryor RN) 2150 ($Given - Provider: Ashlyn Pryor RN) traZODone (DESYREL) tablet 100 mg 100 mg, Oral, AT BEDTIME, First dose (after last modification) on Sat01/22/24 at 2100 2104 ($Given - Provider: Ashlyn Pryor RN) 2150 ($Given - Provider: Ashlyn Pryor RN) PRN Medication Order 01/24/2024 01/25/2024 01/26/2024 albuterol (PROVENTIL HFA/VENTOLIN HFA) inhaler 2 puff, Inhalation, EVERY 4 HOURS PRN, shortness of breath, wheezing, Starting on Sat01/22/24 at 1445, Check the dose counter on the inhaler to ensure there are doses remaining before administering. Prime by spraying into the air 4 times prior to first use and if not used within 2 weeks. bisacodyl (DULCOLAX) suppository 10 mg 10 mg, Rectal, DAILY PRN, constipation, Starting on Sat01/22/24 at 1445, Hold for loose stools. calcium carbonate (TUMS) chewable tablet 500 mg 500 mg, Oral, 4 TIMES DAILY PRN, heartburn, Starting on Sat01/22/24 at 1445 celecoxib (celeBREX) capsule 100 mg 100 mg, Oral, 2 TIMES DAILY PRN, inflammatory pain, Starting on Sat01/22/24 at 1445 diclofenac (VOLTAREN) 1 % topical gel 2 g 2 g, Topical, 4 TIMES DAILY PRN, moderate pain, Starting on Sat01/22/24 at 1445, Apply to area of pain. Use supplied dosing card to mearsure dose. hydrOXYzine HCl (ATARAX) tablet 50 mg 50 mg, Oral, 3 TIMES DAILY PRN, anxiety, Starting on Sat01/22/24 at 1445 methyl salicylate-menthol (ICY HOT) ointment Topical, EVERY 6 HOURS PRN, pain, Starting on Sat01/22/24 at 1445, Apply to area of pain Contains menthol 7.6% & methyl salicylate 29% ondansetron (ZOFRAN ODT) ODT tab 4 mg 4 mg, Oral, EVERY 6 HOURS PRN, nausea, vomiting, Starting on Sat01/22/24 at 1445, With dry hands, peel back foil backing and gently remove tablet. Do not push oral disintegrating tablet through foil backing. Administer immediately on tongue and oral disintegrating tablet dissolves in seconds, then swallow with saliva. Liquid not required. Patient is already receiving anticoagulation with heparin, enoxaparin (LOVENOX), warfarin (COUMADIN) or other anticoagulant medication CONTINUOUS PRN, Starting on Sat01/22/24 at 1445, Until 01/26/24 at 1436 senna-docusate (SENOKOT-S/PERICOLACE) 8.6-50 MG per tablet 1 tablet 1 tablet, Oral, 2 TIMES DAILY PRN, constipation, Starting on Sat01/22/24 at 1445, Hold for loose stools. documented in this encounter Additional Health Concerns Assessment Noted Time PHQ-9 Depression Total Score: 0 06/23/20 21 4:11 PM CDT documented as of this encounter Care Teams Wine [employer] Relationship Specialty Start Date End Date Winston Villatoro OD [facility] [address] [place] [address] PCP - Ophthalmology Ophthalmology 02/11/13 Denise Woodson Ra, [employer] [place] [address] [place] [address] PCP - General Family Practice 09/21/20 Denise Woodson Ra, APRN [place] [address] [address] Assigned PCP 07/17/20 Usah Simon APRN [place] [address] [id number] [place] [address] Nurse Practitioner Neurological Surgery 01/24/24 documented as of this encounter
--- OUTSIDE RECORDS SUMMARY | 2024-01-31 12:09 | XMS_ITS | Encounter Summary ---
Author Name Unknown Organization [facility] Address [address] [place] [id number] Care Team Providers Care Deputy Sheriff Lieutenant Name Role Phone Yung Madrigal MD Unavailable Unavailable Winston Villatoro OD Unavailable [phone] Denise Woodson Ra, APRN INDUSTRIAL CONTROLS TECHNICIAN Unavailable [phone] Denise Woodson Ra, APRN INDUSTRIAL CONTROLS TECHNICIAN Primary Care Provid er Reason for Visit * Auth/Cert (Routine) Specialty Diagnoses / Procedures Referred By Nila t Referred To Contact Rehabilitation [facility] [address] [address] Referral ID Status Reason Start Date Expiration Date Visits Re quested Visits Authorized [id number] 1 1 Encounter Details Date Type Department Care Team (Latest Contact Info) Description 01/17/2024 1:09 PM CDT - 01/19/2024 10:07 PM CDT Hospital Encounter [facility] Acute Rehabilitation [address] [address] Parminder Del Angel MD [address] [place] [address] Sandi Saini MD [address] [place], [place] [id number] Discharge Disposition: Short Term Hospital Social History [...] the original note were not included. . [facility] Acute Rehabilitation Unit Discharge summary Date of Admission: 01/17/2024 Date of Discharge: 01/18/34 Disposition: acute hospital Primary Care Physician: Denise Woodson Ra Attending physician: No att. providers found Other significant physician provider(s): director call Dr. Saini discharge diagnosis Impairment group code: 01.2 Right body, left brain stroke, multiple acute ischemic infarcts in the frontal and parietal lobes, left supramarginal gyrus following angiogram brief summary Alcon Zamora is a 48 year old female with past medical history of Lizy-Danlos syndrome, mild persistent asthma, anxiety and depression, fibromyalgia presented for a planned catheter angiogram at [facility] for left sided pulsatile tinnitus on 01/09/24, found to have multiple acute ischemic infarcts of the frontal lobes, parietal lobes and left supramarginal gyrus after procedure with associated right sided weakness and numbness, likely embolic in nature secondary to procedure complication, complicated by post-stroke seizures, now being admitted on 01/17/[address] [facility] for acute inpatient rehabilitation. On 01/20/24: SHELLFISH SHUCKER was activated. Patient was non-verbal, rapid eye [...] E-Prescribe fluticasone (FLONASE) 50 MCG/ACT nasal spray [place] 2 sprays into both nostrils daily, Disp-16 [...] SpO2: 96% 94% 95% Weight: Height: See SHELLFISH SHUCKER notes for physical exam prior to transfer. [...] dyspnea or wheezing 1 Inhaler 3 07/13/2020 BREO ELLIPTA 200-25 MCG/INH InhalerIndications:Mod erate persistent asthma without complication INHALE 1 PUFF INTO THE LUNGS DAILY 3 each 1 02/22/2022 calcium carbonate (TUMS) 500 MG chewable tabletIndications:Naus ea Take 1 tablet (500 mg) by mouth 4 times daily as needed for heartburn 01/22/2024 cetirizine (ZYRTEC) 10 MG tablet Take 10 mg by mouth daily Lidocaine (LIDOCARE) 4 % PatchIndications:Fibro myalgia,Pain of right upper extremity Place 1 patch onto the skin every 24 hours To prevent lidocaine toxicity, patient should be patch free for 12 hrs daily. 01/22/2024 methyl salicylate-menthol (ICY HOT) ointmentIndications:Fi bromyalgia,Pain of right upper extremity Apply topically every 6 hours as needed (pain) 01/22/2024 psyllium (METAMUCIL) 28.3 % packet Take 1 packet by mouth daily senna-docusate (SENOKOT-S/PERICOLACE) 8.6-50 MG tabletIndications:Othe r constipation Take 2 tablets by mouth 2 times daily as needed for constipation 01/22/2024 traZODone (DESYREL) 50 MG tabletIndications:Inso mnia, unspecified type Take 2 tablets (100 mg) by mouth At Bedtime 180 tablet 3 07/27/2021 acetaminophen (TYLENOL) 325 MG tabletIndications:Fibr omyalgia,Pain of right upper extremity Take 3 tablets (975 mg) by mouth 3 times daily 01/22/2024 01/24/2024 aspirin (ASA) 325 MG EC tablet Take 325 mg by mouth daily 01/24/2024 celecoxib (CELEBREX) 100 MG capsuleIndications:Fib romyalgia,Pain of right upper extremity Take 1 capsule (100 mg) by mouth 2 times daily 01/22/2024 01/24/2024 Chelated Magnesium 100 MG TABS Take 100 mg by mouth At Bedtime 01/20/2024 cyclobenzaprine (FLEXERIL) 10 MG tabletIndications:Neck muscle spasm Take 1 tablet (10 mg) by mouth 3 times daily as needed for muscle spasms 20 tablet 06/12/2017 01/20/2024 diclofenac (VOLTAREN) 1 % topical gelIndications:Fibromy algia,Pain of right upper extremity Apply 2 g topically 4 times daily as needed for moderate pain 01/22/2024 01/24/2024 enoxaparin ANTICOAGULANT (LOVENOX) 40 MG/0.4ML syringeIndications:His tory of stroke Inject 0.4 mLs (40 mg) Subcutaneous every 24 hours . Start 5/8 PM 01/22/2024 01/24/2024 fluticasone (FLONASE) 50 MCG/ACT nasal sprayIndications:Chron ic rhinitis [place] 2 sprays into both nostrils daily 16 g 3 06/15/2019 01/20/2024 hydrOXYzine HCl (ATARAX) 50 MG tabletIndications:Gene ralized anxiety disorder Take 1 tablet (50 mg) by mouth nightly as needed for anxiety 01/22/2024 01/24/2024 levETIRAcetam (KEPPRA) 750 MG tablet Take 750 mg by mouth 2 times daily 01/24/2024 magnesium oxide 200 MG TABS Take 200 mg by mouth at bedtime 01/24/2024 ondansetron (ZOFRAN ODT) 4 MG ODT tabIndications:Nausea Take 1 tablet (4 mg) by mouth every 6 hours as needed for nausea or vomiting 01/22/2024 01/24/2024 oxyCODONE (ROXICODONE) 5 MG tabletIndications:Fibr omyalgia,Pain of right upper extremity Take 1 tablet (5 mg) by mouth every 6 hours as needed for severe pain (If pain not controlled with other pain modalities) 01/22/2024 01/24/2024 rosuvastatin (CRESTOR) 20 MG tablet Take 20 mg by mouth at bedtime 01/24/2024 documented as of this encounter Progress Notes * Randy Kwon APRN INDUSTRIAL CONTROLS TECHNICIAN - 01/19/2024 9:54 PM CDT [facility] Critical Response Team SHELLFISH SHUCKER Note 01/19/2024 SHELLFISH SHUCKER called for: concern for seizure Assessment & [...] ordered -Sign out given to Dr. Reynolds [place] hospitalist -Continue Keppra regimen HPI: Alcon Zamora is a 48 year old female with past medical history of Lizy- Danlos syndrome, mild persistent asthma, anxiety and depression, fibromyalgia presented for a planned catheter angiogram at [facility] for left sided pulsatile tinnitus on 01/09/24, found to have multiple acute ischemic infarcts of the frontal lobes, parietal lobes and left supramarginal gyrus after procedure with associated right sided weakness and numbness, likely embolic in nature secondary to procedure complication, complicated by post-stroke seizures, now being admitted on 01/17/[address] [facility] foracute inpatient rehabilitation. Code Status: Full Code [...] listed in this note. Randy Kwon APRN INDUSTRIAL CONTROLS TECHNICIAN * Tulio Alva, SEED CLEANER - 01/19/2024 12:58 PM CDT 01/19/24 1251 Appointment Info Signing Clinician's Name / Credentials (SEED CLEANER) Tulio Alva MS, [facility]-SEED CLEANER General Information Onset of Illness/Injury or Date of Surgery 01/09/24 Referring Physician AMAIRANI You Patient/Family Therapy Goal Statement (SEED CLEANER) Swallow without difficulties Pertinent History of Current Problem Alcon Zamora is a 48 year old female with past medical history of Lizy-Danlos syndrome, mild persistent asthma, anxiety and depression, fibromyalgia presented for a planned catheter angiogram at [facility] for left sided pulsatile tinnitus on 01/09/24, [...] difficulties at times with pills and harder raw stock drier tender textures such as chicken breast. Current Diet/Method [...] no specific recommendations Medication Administration Recommendations, Swallowing (SEED CLEANER) Per patient preference Clinical Impression Criteria for Skilled Therapeutic Interventions Met (SEED CLEANER Eval) No problems identified which require skilled intervention SEED CLEANER Diagnosis Swallowing within functional limits Problem List (SEED CLEANER) Suspect patient had some initial oropharyngeal dysphagia that has spontaneously improved. Patient at this date was able to recognize some of the improvements she has had since initial onset of CVA. Activity Limitations Related to Problem List (SEED CLEANER) No restrictions or limitations Clinical Impression Comments Bedside swallow evaluation completed as patient has previously reported some swallowing difficulties with harder/raw stock drier tender food items as well as medications. Patient was observed this date with harder/raw stock drier tender items was able to tolerate without difficulties [...] continue focus of treatment on cognitive-linguistic impairments. SEED CLEANER Discharge Planning SEED CLEANER Plan FAVRES as treatment. Moderate to complex level reasoning/problem solving and attention tasks. Immediate/short-term memory strategies. 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 Previous [...] old female with past medical history of Liyz-Danlos syndrome, mild persistent asthma, anxiety and depression, fibromyalgia presented for a planned catheter angiogram at [facility] for left sided pulsatile tinnitus, found to [...] good balance Sitting Balance: Dynamic fair balance [id number] Balance fair balance Standing Balance: Static poor [...] coordination training;patient/family education;postural re-education;ROM (range of motion);stair training;strengthening;stretching;citizen of [place] ball techniques;TENS;thermotherapy;transfer training;progressive activity/exercise;risk factor education;home program [...] Evaluation Time PT Eval, High Complexity Minutes (39552) 45 Physical Therapy Goals PT Frequency 6x/week [...] Ther. Procedure: strength, endurance, ROM, flexibillity Minutes ([id number]) 15 Symptoms Noted During/After Treatment fatigue Treatment [...] Object Physical Assistance Level Contact guard assist Research Physiologist CARE Score 4 Car Transfer Physical Assistance Level Contact guard assist Car Transfer CARE Score 4 * Tulio Alva SEED CLEANER - 01/18/2024 3:49 PM CDT Repeatable Battery for the Assessment of Neuropsychological Status (RBANS) FORM A Immediate Memory Visuospatial/ Constructional Language Attention Delayed Memory Total Scale Index Score 87 100 91 75 98 86 Percentile Rank 19 50 27 5 45 18 SEED CLEANER: Pt seen for administration of RBANS. Results [...] from the original note were not included. [facility] Acute Rehabilitation Unit Progress Note INTERVAL HISTORY Alcon Zamora is a 48 year old female with past medical history of Lizy-Danlos syndrome, mild persistent asthma, anxiety and depression, fibromyalgia presented for a planned catheter angiogram at [facility] for left sided pulsatile tinnitus on 01/09/24, found to have multiple acute ischemic infarcts of the frontal lobes, parietal lobes and left supramarginal gyrus after procedure with associated right sided weakness and numbness, likely embolic in nature secondary to procedure complication, complicated by post-stroke seizures, now being admitted on 01/17/[address] [facility] for acute inpatient rehabilitation. Reports having poor sleep yesterday. Patient said my sleep medication was not given to me yesterday night. I checked the MAR and Trazodone was given at 9.30 PM PAST MEDICAL HISTORY Reviewed and updated in [employer]. Past Medical History: Diagnosis Date Acute posthemorrhagic [...] asthma SURGICAL HISTORY Reviewed and updated in [employer]. Past Surgical History: Procedure Laterality Date C HOME HEALTH CARE SOCIAL WORKER PROCEDURE DATE: vag del. C HOME HEALTH CARE SOCIAL WORKER PROCEDURE DATE: 2000 tubal ligation C HOME HEALTH CARE SOCIAL WORKER PROCEDURE DATE: 1994 D&C CARDIAC SURGERY 06/2006 heart defect repair ESOPHAGOSCOPY, GASTROSCOPY, DUODENOSCOPY (EGD), COMBINED N/A 02/08/2021 Procedure: ESOPHAGOGASTRODUODENOSCOPY (EGD); Surgeon: Tuan Miller MD; Location: GI GI SURGERY 09/2020 gallbladder removed HC KNEE SCOPE,MED/LAT MENISECTOMY 08/04/13 LT HEART CATH, CLOSURE ATRIAL SEPTAL DEFECT 06/20/06 amplatzer septal occluder- serial #[id number] RW HOME HEALTH CARE SOCIAL WORKER (ABSTRACTED) pneumonia several times SURGICAL PATHOLOGY EXAM 02/2012 excision of lipoma on chest wall ZZC VAGINAL HYSTERECTOMY 01/30/06 SOCIAL HISTORY Reviewed and updated in [facility]. Living Situation: Lives with Sandor, in split level home , 2 [address] home with rail in front door, no rail in garage (also 2 [address]), 8-9 steps to get to a floor with a bedroom or bathroom. 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 No Social History Narrative Not on file Social Determinants of Health Financial Resource Strain: Low Risk (01/10/2023) Received from [facility] Overall Financial Resource Strain (CARDIA) Difficulty of Paying Living Expenses: Not hard at all Food Insecurity: No Food Insecurity (01/10/2023) Received from [facility] Hunger Vital Sign Worried About Running Out of Food in the Last Year: Never true Ran Out of Food in the Last Year: Never true Transportation Needs: No Transportation Needs (01/10/2023) Received from [facility] PRAPARE - Transportation Lack of Transportation (Medical): No Lack of Transportation (Non-Medical): No Physical Activity: Sufficiently Active (01/10/2023) Received from [facility] Exercise Vital Sign Days of Exercise per Week: 5 days Minutes of Exercise per Session: 30 min Stress: Stress Concern Present (01/10/2023) Received from [facility] [place] [employer] - Occupational Stress Questionnaire Feeling of Stress : Rather much Social Connections: Socially Isolated (01/10/2023) Received from [facility] Social Connection and Isolation Panel [NHANES] Frequency of Communication with Friends and Family: Once a week Frequency of Social Gatherings with Friends and Family: Once a week Attends [employer] Services: Never Active Member of Clubs or Organizations: No Attends Club or Organization Meetings: Never Marital Status: Interpersonal Safety: Not At Risk (01/10/2023) Received from [facility] Humiliation, Afraid, Rape, and Kick questionnaire Fear of Current or Ex-Partner: No Emotionally Abused: No Physically Abused: No Sexually Abused: No Housing Stability: Low Risk (01/10/2023) Received from [facility] Housing Stability Vital Sign Unable to Pay for Housing in the Last Year: No Number of Places Lived in the Last Year: 1 Unstable Housing in the Last Year: No FAMILY HISTORY Reviewed and updated in [employer]. Family History Problem Relation Age of Onset [...] 0 fluticasone (FLONASE) 50 MCG/ACT nasal spray [place] 2 sprays into both nostrils daily 16 [...] - 8th CN: functional hearing bilaterally - 9, CN: palate elevates symmetrically - 11th CN: sternocleidomastoids and trapezii strong - CN: tongue midline and without fasciculations LABS Recent Results (from the past 24 hour(s)) Platelet count - Routine Collection Time: 01/18/24 5:40 AM Result Value Ref Range Platelet Count 217 150 - 450 10e3/uL Extra Green Top (Ester Heparin) Tube Collection Time: 01/18/24 5:40 AM Result Value Ref Range Hold Specimen JI IMPRESSION/PLAN: Alcon Zamora is a 48 year old female with past medical history of Lizy-Danlos syndrome, mild persistent asthma, anxiety and depression, fibromyalgia presented for a planned catheter angiogram at [facility] for left sided pulsatile tinnitus, found to have multiple acute ischemic infarctsof the frontal lobes, parietal lobes and left supramarginal gyrus after procedure with associated right sided weakness and numbness, likely embolic in nature secondary to procedure complication, complicated by post-stroke seizures, now being admitted on 01/17/[address] [facility] for acute inpatient rehabilitation. Patient will require and benefit from PT, OT, and SEED CLEANER services as well as all of the ancillary services offered in the inpatient rehab setting. Admission to acute inpatient rehab: 01/17/2024 Impairment group code: 01.2 Right body, left brain stroke, multiple acute ischemic infarcts in the frontal and parietal lobes, left supramarginal gyrus following angiogram PT, OT and SEED CLEANER 60 minutes of each on a daily basis, in addition to rehab nursing and close management of fabrics and material cutter. Impairment of ADL's: Impairment in strength, endurance, [...] # Headaches, frontal Patient was seen by [facility] interventional neuroradiology for diagnostic catheter cerebral angiogram for left sided pulsatile tinnitus. 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, parietal lobes and left supramarginal gyrus, neurology believed embolic in nature, likely procedural complication - PT, OT, SEED CLEANER - Secondary stroke ppx: - BP: Goal [...] need during rehab stay # Asthma - HAIR CLIPPER POWER Breo Ellipta qday # Bowel: States current [...] activities as noted above. * Tulio Alva, JUAN - 01/18/2024 8:00 AM CDT 01/18/24 1200 Appointment Info Signing Clinician's Name / Credentials (SEED CLEANER) Tulio Alva MS [facility] SEED CLEANER General Information Onset of Illness/Injury or Date of Surgery 01/09/24 Referring Physician AMAIRANI You Patient/Family Therapy Goal Statement (SEED CLEANER) Get back to work Pertinent History of Current Problem leigha Zamora is a 48 year old female with past medical historyof Lizy-Danlos syndrome, mild persistent asthma, anxiety and depression, fibromyalgia presented for a planned catheter angiogram at [facility] for left sided pulsatile tinnitus on 01/09/24,found [...] Impression Criteria for Skilled Therapeutic Interventions Met (SEED CLEANER Eval) Yes, treatment indicated SEED CLEANER Diagnosis Mild cognitive linguistic impairment. Problem List (SEED CLEANER) Impaired attention and executive functioning. Patient does have good insight into deficits being experienced Activity Limitations Related to Problem List (SEED CLEANER) Decreased level of independence with higher level [...] benefitfrom skilled intervention to maximize cognitive function. SEED CLEANER Goals Therapy Frequency (SEED CLEANER Eval) 6 times/week SEED CLEANER Predicted Duration/Target Date for Goal Attainment 02/01/24 SEED CLEANER Goals SEED CLEANER Goal 1;SEED CLEANER Goal 2 SEED CLEANER: Goal 1 Patient will utilize compensatory memory strategies to recall novel information with presence of distractions and delays with 90% accuracy SEED CLEANER: Goal 2 Patient will complete complex level reasoning/problem solving tasks with 90% accuracy without need for redirection. SEED CLEANER Discharge Planning SEED CLEANER Plan Initiate and pull to note dysphagia evaluation. Review scores from RBANS and engage in moderate to complex level reasoning/problem solving and attention tasks. Could engage in FAVRES as treatment SEED CLEANER - Acute Rehab Center Time Individual Time (minutes) - SEED CLEANER 60 Group Time (minutes) - SEED CLEANER 0 Concurrent Time (minutes) - SEED CLEANER 0 Co-Treatment Time (minutes) - SEED CLEANER 0 ARC Total Session Time (minutes) - SEED CLEANER 60 ARC Daily Total Session Time SEED CLEANER ARC Daily Total Session Time 60 ARC Daily Rehab Total Minutes 60 documented in this encounter H&P Notes * Sandi Saini MD - 01/17/2024 4:14 PM CDT Images from the original note were not included. [facility] Acute Rehabilitation Unit Admission History and Physical CHIEF COMPLAINT Cerebral infarct of the frontal lobes, parietal lobes, left supramarginal gyrus, embolic in nature,likely procedural complication HISTORY OF PRESENT ILLNESS Alcon Zamora is a 48 year old female with past medical history of Lizy-Danlos syndrome, mild persistent asthma, anxiety and depression, fibromyalgia presented for a planned catheter angiogram at [facility] for left sided pulsatile tinnitus on 01/09/24, found to have multiple acute ischemic infarcts of the frontal lobes, parietal lobes and left supramarginal gyrus after procedure with associated right sided weakness and numbness, likely embolic in nature secondary to procedure complication, complicated by post-stroke seizures, now being admitted on 01/17/[address] [facility] for acute inpatient rehabilitation. Acute Hospital Course: [...] exclude dural AVF. Patient was seen by [facility] interventional neuroradiology for diagnostic catheter cerebral [...] seen and evaluated by PT, OT, and SEED CLEANER who collectively recommended that patient would benefit from ongoing therapies in the acute inpatient rehabilitation setting, and patient was admitted on 01/17/2024. In review of recent therapy notes: - Per paper chart review: - PT: Min A transfers, gait FWW x 100 ft CGA. - OT: Transfers with min A, requires cutes to attend to right side - SEED CLEANER: No significant communication deficits, some difficulty with swallow sujata with pill swallowing. Has NOT had formal SEED CLEANER assessment, will benefit from full cognitive/linguistic assessment. 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 Patient states she alsohas trouble swallowing pills, [...] PAST MEDICAL HISTORY Reviewed and updated in [employer]. Past Medical History: Diagnosis Date Acute posthemorrhagic [...] asthma SURGICAL HISTORY Reviewed and updated in [employer]. Past Surgical History: Procedure Laterality Date C HOME HEALTH CARE SOCIAL WORKER PROCEDURE DATE: vag del. C HOME HEALTH CARE SOCIAL WORKER PROCEDURE DATE: 2000 tubal ligation C HOME HEALTH CARE SOCIAL WORKER PROCEDURE DATE: 1994 D&C CARDIAC SURGERY 06/2006 heart defect repair ESOPHAGOSCOPY, GASTROSCOPY, DUODENOSCOPY (EGD), COMBINED N/A 02/08/2021 Procedure: ESOPHAGOGASTRODUODENOSCOPY (EGD); Surgeon: Tuan Miller MD; Location: [facility] GI SURGERY 09/2020 gallbladder removed HC KNEE SCOPE,MED/LAT MENISECTOMY 08/04/13 LT HEART CATH, CLOSURE ATRIAL SEPTAL DEFECT 06/20/06 amplatzer septal occluder- serial #[id number] RW HOME HEALTH CARE SOCIAL WORKER (ABSTRACTED) pneumonia several times SURGICAL PATHOLOGY EXAM 02/2012 excision of lipoma on chest wall ZZC VAGINAL HYSTERECTOMY 01/30/06 SOCIAL HISTORY Reviewed and updated in [facility]. Living Situation: Lives with Sandor, in split level home , 2 [address] home with rail in front door, no rail in garage (also 2 [address]), 8-9 steps to get to a floor with a bedroom or bathroom. 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 No Social History Narrative Not on file Social Determinants of Health Financial Resource Strain: Low Risk (01/10/2023) Received from [facility] Overall Financial Resource Strain (CARDIA) Difficulty of Paying Living Expenses: Not hard at all Food Insecurity: No Food Insecurity (01/10/2023) Received from [facility] Hunger Vital Sign Worried About Running Out of Food in the Last Year: Never true Ran Out of Food in the Last Year: Never true Transportation Needs: No Transportation Needs (01/10/2023) Received from [facility] PRAPARE - Transportation Lack of Transportation (Medical): No Lack of Transportation (Non-Medical): No Physical Activity: Sufficiently Active (01/10/2023) Received from [facility] Exercise Vital Sign Days of Exercise per Week: 5 days Minutes of Exercise per Session: 30 min Stress: Stress Concern Present (01/10/2023) Received from [facility], [facility] [place] of Occupational Health - Occupational Stress Questionnaire Feeling of Stress : Rather much Social Connections: Socially Isolated (01/10/2023) Received from [facility], [facility] Social Connection and Isolation Panel [NHANES] Frequency of Communication with Friends and Family: Once a week Frequency of Social Gatherings with Friends and Family: Once a week Attends [employer] Services: Never Active Member of Clubs or Organizations: No Attends Club or Organization Meetings: Never Marital Status: Interpersonal Safety: Not At Risk (01/10/2023) Received from [facility] Humiliation, Afraid, Rape, and Kick questionnaire Fear of Current or Ex-Partner: No Emotionally Abused: No Physically Abused: No Sexually Abused: No Housing Stability: Low Risk (01/10/2023) Received from [facility], [facility] Housing Stability Vital Sign Unable to Pay for Housing in the Last Year: No Number of Places Lived in the Last Year: 1 Unstable Housing in the Last Year: No FAMILY HISTORY Reviewed and updated in [employer]. Family History Problem Relation Age of Onset [...] 0 fluticasone (FLONASE) 50 MCG/ACT nasal spray [place] 2 sprays into both nostrils daily 16 [...] - 8th CN: functional hearing bilaterally - 9, CN: palate elevates symmetrically - 11th CN: sternocleidomastoids and trapezii strong - CN: tongue midline and without fasciculations Sensory: Normal to light touch in bilateral upper and lower extremities Motor: Right Left Shoulder abd 3/5 5/5 Elbow Flexion 3/5 5/5 Elbow Extension 3/5 5/5 Wrist Extension 3/5 5/5 Wrist Flexion 3/5 5/5 FDP 3/5 5/5 Abd dig. Minimi /5 5/5 Hip Flexion /5 5/5 Knee Extension /5 5/5 Knee Flexion /5 5/5 Dorsiflexion /5 5/5 EHL / 5/5 Plantarflexion 5/5 5/5 Carter's test: negative [...] presented for a planned catheter angiogram at [facility] for left sided pulsatile tinnitus, found to have multiple acute ischemic infarctsof the frontal lobes, parietal lobes and left supramarginal gyrus after procedure with associated right sided weakness and numbness, likely embolic in nature secondary to procedure complication, complicated by post-stroke seizures, now being admitted on 01/17/[address] [facility] for acute inpatient rehabilitation. Patient will require and benefit from PT, OT, and SEED CLEANER services as well as all of the ancillary services offered in the inpatient rehab setting. Admission to acute inpatient rehab: 01/17/2024 Impairment group code: 01.2 Right body, left brain stroke, multiple acute ischemic infarcts in the frontal and parietal lobes, left supramarginal gyrus following angiogram PT, OT and SEED CLEANER 60 minutes of each on a daily basis, in addition to rehab nursing and close management of fabrics and material cutter. Impairment of ADL's: Impairment in strength, endurance, [...] # Headaches, frontal Patient was seen by [facility] interventional neuroradiology for diagnostic catheter cerebral angiogram for left sided pulsatile tinnitus. 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, parietal lobes and left supramarginal gyrus, neurology believed embolic in nature, likely procedural complication - PT, OT, SEED CLEANER - Secondary stroke ppx: - BP: Goal [...] activity at acute hospital Post-stroke seizures noted 430 early AM at acute hospital, given Keppra [...] need during rehab stay # Asthma - HAIR CLIPPER POWER Breo Ellipta qday # Bowel: States current [...] Sandi Saini MD, PM&R staff physician Robin Sibley DO PGY-3 Physical Medicine and Rehabilitation .Physician [...] presented for a planned catheter angiogram at [facility] for left sided pulsatile tinnitus, found to have multiple acute ischemic infarcts of the frontal lobes, parietal lobes and left supramarginal gyrus after procedure with associated right sided weakness and numbness, likely embolic in nature secondary to procedure complication, complicated by post-stroke seizures, now being admitted on 01/17/[address] [facility] for acute inpatient rehabilitation. 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 Prognosis:??good Estimated [...] a 48 yr old female, , , bahraini speaking, no affiliated yazidism or consideration Physical Health Reason for admission: CHIEF COMPLAINT Cerebral infarct of the frontal lobes, parietal lobes, left supramarginal gyrus, embolic in nature,likely procedural complication HISTORY OF PRESENT ILLNESS Alcon Zamora is a 48 year old female with past medical history of Lizy-Danlos syndrome, mild persistent asthma, anxiety and depression, fibromyalgia presented for a planned catheter angiogram at [facility] for left sided pulsatile tinnitus on 01/09/24, found to have multiple acute ischemic infarcts of the frontal lobes, parietal lobes and left supramarginal gyrus after procedure with associated right sided weakness and numbness, likely embolic in nature secondary to procedure complication, complicated by post-stroke seizures, now being admitted on 01/17/[address] [facility] for acute inpatient rehabilitation. Provider Information Primary Care Physician: Denise Woodson [phone] [address] [facility] [address] [facility] will schedule PCP apt at discharge. Research Geneticist: SONALI Mental Health/Chemical Dependency: Diagnosis: Pt reported [...] drugs. Support/Services in Place: medication. Services Needed/Recommended: [place] and [facility] Psychology support while on ARU available. Sexuality/Intimacy: Not discussed Support System Marital Status: Family support: Sandor (), Silas (son), Erica (daughter) in [place], Kenji (son) in [place]. Pt has 2 granddaughters. Other support available: sonali Community Resources Current in home services: Pt denies current home services. 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 Income Source: Pt work and also works Education: not discussed Financial Concerns: Pt reported trying to figure out short term disability and FMLA. Dual householdand need to figure out finances. Pt will talk to work on Saturday for FMLA paperwork. PT reported short term disability won't start until 30 days. Informed Pt to get FMLA paperwork and give it directlyto Doctor. Insurance: [email or web address] OPEN ACCESS Discharge Plan Patient and family discharge goal: TBD, pending progress. Goal is to go home. Provided Education on discharge plan: Evaluations and discharge recommendations pending. Patient agreeable to discharge plan: Pending further discussion. Evaluations and discharge recommendations pending. Provided education and attained signature for Medicare IM and IRF Patient Rights and Privacy Information provided to patient : NA Provided patient with [facility] [place] Resources: Provided booklet and made referral[facility]. Barriers to discharge: none at the moment Discharge Recommendations Disposition: See above Transportation Needs: Additional comments Discharge TBD, ELOS +/- 14 days . Evals and discharge needs pending. SW will remain available and continue to follow as needs arise. Pt would like information on how to transfer her care to [facility]. Doesn't want to go back to [place]. VIDHYA Pain Assessment Pain Effect on Sleep [...] Rarely or not at all Leanna Call [facility], [facility], [facility] Audiology Doctor Social Work [address] [place] [phone] or [phone]) documented in this encounter Nursing Notes * Jaye Maddox RN - 01/17/2024 2:07 PM CDT Pt was admitted to the unit today in a stretcher. Alert and oriented x4. Able to make needs known. A1 with walker and gait belt. Continent of bowel and bladder. LBM 5/1.Pt on seizure precautions. On regular diet, thin [...] response called, aid sent urgent message via [employer] and I entered the room pt appearedto [...] given per directive of practitioner. Transferred to [address] [place] [address]. Goal Outcome Evaluation: * Plan of Care - Tulio Alva SLP - 01/19/2024 10:07 PM CDT Speech Language Therapy Discharge Summary Reason for therapy discharge: Discharged to acute care hospital Progress towards therapy goal(s). See goals on Care Plan in [facility] electronic health record for goal details. Goals [...] Feldman OTR - 01/19/2024 12:27 PM CDT Dynamo Tender Post-Acute Rehab OT: Discharge Plan: Home with [...] to bedroom/bathroom. Pt has a high height utility bag assembler tub/shower combo (need to measure to see [...] from the original note were not included. Dynamo Tender Post-Acute Rehab OT: Discharge Plan: Home with [...] to bedroom/bathroom. Pt has a high height utility bag assembler tub/shower combo (need to measure to see how high the step into the shower is). * Plan of Care - Janna Najera OTR - 01/18/2024 4:17 PM CDT 01/18/24 1430 Appointment Info Signing Clinician's Name / Credentials (OT) JAIMIE Gibbs/L Living Environment People in Home spouse;child(vipul), adult [...] toilets. Tub/shower combo upstairs with high krystle utility bag assembler tub. Downstairs bathroom has a standard tub/shower combo. No grab bars in bathroom. 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 Was previouslyI with all ADLs and IADLs [...] strength 4/5 MMT Hand Strength Right hand metal punch press operator (pounds) 30 Left hand metal punch press operator (pounds) 48 Coordination Left hand, nine hole [...] benefit from skilled OT services toreturn to [facility]. DAYAOS 2 weeks. OT Total Evaluation Time OT Eval, Moderate Complexity Minutes (61277) 30 OT Goals Therapy Frequency (OT) 6 [...] Management Self-Care/Home Mgmt/ADL, Compensatory, Meal Prep Minutes (68421) 30 Symptoms Noted During/After Treatment (Meal Preparation/Planning Training) fatigue Treatment Detail/Skilled Intervention Focus on environmental room modifications to provide easier walkway for pt. Pt participated in g/h and oral cares at sink. Pt completed UB and LB dressing EOB. [...] hands;Washing face Grooming Comment OT: CGA at sink Upper Body Dressing Describe performance Set up A seated Lower Body Dressing (Pants/Undergarments) Describe performance Min A to pullman car repairer hips, pt able to thread BLE Sit to Stand Assistance Needed Adaptive equipment Physical Assistance Level Less than 25% Comment Min A FWW Sitting to Standing CARE Score 3 * Pharmacy-Medication Regimen Review - Damaris Adkins RPH - 01/18/2024 12:18 PM CDT Pharmacy Medication [...] PRN, Danya You PA, 1,000 mg at 01/17/242 albuterol (PROVENTIL HFA/VENTOLIN HFA) inhaler, 1-2 puff, [...] 100 mg, 100 mg, Oral, At Bedtime, Danay You PA, 100 mg at 01/17/242122 No [...] Also wants to establish care with a [facility] neurologist and follow up with the complications that occurred at [place], where she was previouslyhospitalized. Sticky note left [...] Description 02/03/2024 8:45 AM CDT Therapy Visit [address] [phone] Denise Woodson Ra, CARBONATION EQUIPMENT TENDER INDUSTRIAL CONTROLS TECHNICIAN [address] [place] [address] Addis Rojas, PT [facility] [address] [place], [place] [phone] 02/04/[address] [facility] Neurology [address] [address] Raul Hoyos MD [address] [place] [phone] *-*INCOMING RECORDS*-* 02/04/2024 11:00 AM CDT Virtual Visit [facility] Neurology [address] [address] Raul Hoyos MD [address] [place] [phone] 02/06/2024 8:30 AM CDT Office Visit [facility] [address] [place] [phone] Denise Woodson Ra, CARBONATION EQUIPMENT TENDER INDUSTRIAL CONTROLS TECHNICIAN [address] [place], [place] [phone] 02/07/2024 2:00 PM CDT Therapy Visit [address] [phone] Danya You, PA [facility] [address] [place], [place] [phone] Charis Chacon, JUAN [facility] [address] [place] [address] 02/14/2024 12:45 PM CDT Therapy Visit [address] [phone] Danya You, AMAIRANI [address] [place] [address] Isabel Beaulieu, OTR [address] [address] 02/14/2024 2:00 PM CDT Therapy Visit [address] [phone] Danya You PA [address] [place] [address] Charis Chacon, JUAN [facility] [address] [place] [address] 02/14/2024 2:45 PM CDT Therapy Visit [address] [phone] Danya You, PA [address] [place] [address] Maria Eugenia Nguyen, PT [address] [place] [address] 02/17/2024 2:45 PM CDT Therapy Visit [address] [phone] Danya You, AMAIRANI [address] [place] [address] Aliya Kim, SEED CLEANER [address] [facility], [address] [place] [address] 02/19/2024 3:00 PM CDT Therapy Visit [facility] [address] [place] [phone] Danya You, PA [address] [address] Isabel Beaulieu, JAIMIE SHEPPARD [address] [address] 02/26/2024 2:15 PM CDT Therapy Visit [facility] [address] [place] [address] Danya You, PA [address] [address] Charis Chacon, JUAN [facility] [address] [place] [address] 02/26/2024 3:00 PM CDT Therapy Visit [facility] [address] [place] [address] Danya You, PA [address] [address] Isabel Beaulieu, OTR [facility] [address] [place] [address] 02/27/2024 4:45 PM CDT Therapy Visit [facility] [address] [address] Danya You, PA [address] [address] Vanessa Duggan, PT 03/05/2024 1:30 PM CDT Therapy Visit [address] [phone] Danya You, PA [address] [address] Isabel Beaulieu OTR [address] [address] 03/05/2024 3:15 PM CDT Therapy Visit [address] [phone] Danya You, PA [address] [address]367[address] Charis Chacon, SEED CLEANER [facility] [address] [place] [address] 03/05/2024 4:15 PM CDT Therapy Visit [address] [phone] Danya You, PA [address] [address] Delicia George, PT [facility] [address] [place] [address] 03/11/2024 2:15 PM CDT Therapy Visit [facility] [address] [place] [address] Danya You PA [address] [facility] [address] [address] Isabel Beaulieu, OTR [facility] [address] [place] [address] 03/11/2024 3:00 PM CDT [facility] [address] [place] [phone] Danya You, AMAIRANI [address] [facility] [address] [address] Charis Chacon, [facility] [address] [place] [address] 03/11/2024 4:15 PM CDT Therapy Visit [facility] [address] [place] [phone] Danya You, AMAIRANI [facility] [address] [address] Delicia George, PT [facility] [address] [place] [address] 03/17/2024 1:30 PM CDT [facility] [address] [place] [phone] Danya You PA [facility]0 [address] [address] Isabel Beualieu, OTR [facility] [address] [place] [address] 03/17/2024 2:30 PM CDT Therapy Visit [address] [phone] Danya You, PA [address] [address] Charis Chacon, JUAN [facility] [address] [place] [address] 03/17/2024 4:00 PM CDT Therapy Visit [address] [phone] Danya You, PA [address] 2[address] Delicia George, PT [facility] [address] [place] [address] 03/23/2024 10:30 AM CDT Office Visit [facility] [address] [place] [phone] Denise Woodson Ra, CARBONATION EQUIPMENT TENDER [facility] [address] [place], [place] [phone] 03/26/2024 1:30 PM CDT Therapy Visit [address] [phone] Danya [place], PA [address] [address] Isabel Beaulieu, JAIMIE [address] [address] 03/26/2024 2:30 PM CDT Therapy Visit [address] [phone] Danya You, PA [address] [place] [address] Charis Chacon, SEED CLEANER [facility] [address] [place] [address] 03/26/2024 3:30 PM CDT Therapy Visit [address] [phone] Danya You, PA [address] [address] Delicia George, PT [facility] [address] [place] [address] 04/02/2024 2:15 PM CDT Therapy Visit [address] [phone] Danya You, PA [address] [address] Isabel Beaulieu, JAIMIE [address] [address] 04/02/2024 3:15 PM CDT Therapy Visit [address] [phone] Danya You, PA [address] [place] [address] Charis Chacon, JUAN [facility] [address] [place] [address] 04/02/2024 4:15 PM CDT Therapy Visit [address] [phone] Danya You, AMAIRANI [address] [facility] [facility] [address] [place] [address] Delicia George, PT [address] 2130[address] 04/09/2024 3:15 PM CDT Therapy Visit [address] [address] Danya You, AMAIRANI [address] [place] [address] Charis Chacon, JUAN [facility] [address] [place] [address] 04/09/2024 4:15 PM CDT Therapy Visit [address] [phone] Danya You, PA [address] [address] Delicia George, PT [address] [address] 04/15/2024 9:30 AM CDT Therapy Visit [address] [address] Danya You, PA [address] [place] [address] Danya Restrepo SLP 04/23/2024 2:30 PM CDT Therapy Visit [facility] Rehabilitation [facility] [address] [place] [address] Danya You, PA [address] [place] [address] Charis Chacon, J[facility]AN [facility] [address] [place] [address] 06/23/2024 11:00 AM CDT Virtual Visit [facility] Mental [facility] [address] [place] [address] Kristin Vázquez, [facility] [address] [place] [address] 06/30/2024 2:00 PM CDT Virtual Visit [facility] & Addiction [facility] [address] [place] [phone] Kristin Vázquez, [facility] [address] [place] [phone] documented as of this encounter Procedures Procedure [...] the vertex were obtained without intravenous contrast. Stock Car Driver (topogram) image(s) also obtained and reviewed. FINDINGS: [...] the vertex were obtained without intravenous contrast. Stock Car Driver (topogram) image(s) also obtained and reviewed. FINDINGS: [...] findings. ANA LATHAM MD Randy Kwon APRN INDUSTRIAL CONTROLS TECHNICIAN IMG CT ORDERABLES * EKG 12-lead, complete (01/19/2024 10:33 PM CDT) Systolic Blood Pressure mmHg RADIOLOGY RESULTS Diastolic Blood Pressure mmHg RADIOLOGY RESULTS Ventricular Rate 84 BPM RAD IOLOGY RESULTS Atrial Rate 84 BPM RADIOLOG Y RESULTS OH Interval 168 ms RADIOLOG Y RESULTS QRS Duration 82 ms RADIOLO GY RESULTS QT 374 ms RADIOLOGY RESULTS QTc 441 ms RADIOLOGY RESULTS P [place] 30 degrees RADIOLOGY RESULTS R AXIS 36 degrees RADIOLOGY RESULTS T [place] -13 degrees RADIOLOGY RESULTS Interpretation ECG Sinus rhythm with frequent Premature ventricular complexes Abnormal ECG No previous ECGs available Confirmed by MD MAN JANE ([id number]) on 01/20/2024 9:02:28 AM RADIOLOGY RESULTS 01/19/2024 10:3 3 PM CDT 01/20/2024 9:02 AM CDT Randy Doyle CARBONATION EQUIPMENT TENDER INDUSTRIAL CONTROLS TECHNICIAN ECG ORDERABLES RADIOLOGY RESULTS * (ABNORMAL) CBC [...] LAB - BLOOD ORDER NASRIN UR LABORATORY [facility] [address] [place] [address], [address] * Fibrinogen activity (01/19/2024 9:33 PM CDT) Fibrinogen Activity 417 170 - 490 mg/dL 01/19/2024 10:18 PM CDT UR LABORATORY Blood BLOOD SPECIMEN / Unknown Venipuncture / Unknown 01/19/2024 9:33 PM CDT 01/19/2024 9:54 PM CDT Randy Kwon APRN, CNP LAB - BLOOD ORDER NASRIN UR LABORATORY [facility] [address] [place] [address], [address] * Partial thromboplastin time (01/19/2024 9:33 PM CDT) aPTT 25 22 - 38 Seconds 01/19/2024 10:18 PM CDT UR LABORATORY Blood BLOOD SPECIMEN / Unknown Venipuncture / Unknown 01/19/2024 9:33 PM CDT 01/19/2024 9:54 PM CDT Randy Kwon APRN INDUSTRIAL CONTROLS TECHNICIAN LAB - BLOOD ORDER NASRIN UR LABORATORY [facility] [address] [facility], [address] [place] [address] * INR (01/19/2024 9:33 PM CDT) INR 0.87 0.85 - 1.15 01/19/2024 10:17 PM CDT UR LABORATORY Blood BLOOD SPECIMEN / Unknown Venipuncture / Unknown 01/19/2024 9:33 PM CDT 01/19/2024 9:54 PM CDT Randy Kwon APRN, CNP LAB - BLOOD ORDER NASRIN UR LABORATORY [facility] [address] [facility], [address] [place] [address] * Prolactin (01/19/2024 9:33 PM CDT) Prolactin 22 5 - 23 ng/mL 01/19/2024 11:23 PM CDT [facility] LABORATORY Blood BLOOD SPECIMEN / Unknown Venipuncture / Unknown 01/19/2024 9:33 PM CDT 01/19/2024 9:54 PM CDT Randy Kwon APRN, CNP LAB - BLOOD ORDER NASRIN [facility] LABORATORY [facility] [place] [facility] [address] [facility], [address] [place] [address] * Extra Green Top (Ester Heparin) Tube (01/18/2024 5:40 AM CDT) Hold Specimen JIC 01/18/2024 7:32 AM CDT UR LABORATORY Blood STRUCTURE OF RIGHT UPPER LIMB / Unknown Venipuncture / Unknown 01/18/2024 5:40 AM CDT 01/18/2024 6:18 AM CDT Parminder Del Angel MD LAB - BLOOD ORDERABL ES UR LABORATORY [facility] Acute [facility] Lab [facility], Room [address] [address] * Platelet count - Routine (01/18/2024 5:40 AM CDT) Platelet Count 217 150 - 450 10e3/uL 01/18/2024 6:15 AM CDT UR LABORATORY Blood STRUCTURE OF RIGHT UPPER LIMB / Unknown Venipuncture / Unknown 01/18/2024 5:40 AM CDT 01/18/2024 6:13 AM CDT Parminder Del Angel MD LAB - BLOOD ORDERABL ES UR LABORATORY [facility] [address] [place] [address], Room [address] [phone] documented in this encounter Visit Diagnoses [...] HOURS, First dose on Sat01/18/24 at 0800 $Given 01/19/2024 7:36 AM CDT [...] 1 packet, Oral, DAILY, First dose on 01/18/24 at 0800, Powder should be diluted with [...] DAILY, First dose on 01/18/24 at 0800 0803 ($Given - Provider: Angie Tripp RN) 0736 ($Given - Provider: Angie Tripp RN) cetirizine (zyrTEC) solution 10 mg 10 mg, Oral, DAILY, First dose on Sat01/18/24 at 0800 1132 ($Given - Provider: Angie Tripp RN) 0737 ($Given - Provider: Angie Tripp, GEMA) enoxaparin ANTICOAGULANT (LOVENOX) injection 40 mg 40 mg, Subcutaneous, EVERY 24 HOURS, First dose on 01/18/24 at 0800 0803 ($Given - Provider: Angie Tripp RN) 0736 ($Given - Provider: Angie Tripp, GEMA) fluticasone-vilanterol (BREO ELLIPTA) 200-25 MCG/ACT inhaler 1 puff 1 puff, Inhalation, DAILY, First dose on 01/18/24 at 0800, *Do not use more frequently than once daily.* Rinse mouth after use. Check the dose counter on the inhaler to ensure there are doses remaining before administering. 1130 ($Given - Provider: Angie Tripp RN) 0741 ($Given - Provider: Angie Tripp RN) levETIRAcetam (KEPPRA) tablet 750 mg 750 mg, Oral, 2 TIMES DAILY, First dose on Sat01/17/24 at 2099 2122 ($Given - Provider: Per Ma RN) 08 ($Given - Provider: Angie Tripp RN)2114 ($Given - Provider: Escobar David, GEMA) 0736 ($Given - Provider: Angie Tripp RN)899 (Canceled Entry - Provider: Angie Tripp RN - Comment: given early nper pt request)2136 ($Given - Provider: Escobar David, GEMA) magnesium oxide (MAG-OX) tablet 400 mg 400 mg, Oral, AT BEDTIME, First dose on Sat01/17/24 at 2199 2122 ($Given - Provider: Per Ma, GEMA) 2114 ($Given - Provider: Escobar David, RN) 2199 (Canceled Entry - Provider: Orders Generic Provider - Comment: Automatically canceled at discontinue of medication order) psyllium (METAMUCIL/KONSYL) Packet 1 packet 1 packet, Oral, DAILY, First dose on Sat01/18/24 at 0800, Powder should be diluted with fluid before given. 1130 ($Given - Provider: Angie Tripp RN) 0737 ($Given - Provider: Angie Tripp, GEMA) rosuvastatin (CRESTOR) tablet 20 mg 20 mg, Oral, AT BEDTIME, First dose on Sat01/17/24 at 2199 2122 ($Given - Provider: Per Ma, GEMA) 2114 ($Given - Provider: Escobar David RN) 2199 (Canceled Entry - Provider: Orders Generic Provider - Comment: Automatically canceled at discontinue of medication order) traZODone (DESYREL) tablet 100 mg 100 mg, Oral, AT BEDTIME, First dose on Sat01/17/24 at 2199 2122 ($Given - Provider: Per Ma RN) [...] documented as of this encounter Care Teams Deputy Sheriff Lieutenant Relationship Specialty Start Date End Date Yung Madrigal MD RETIRED PCP - Orthopaedics Orthopedics 08/26/12 01/20/24 Winston Villatoro OD [address] [place] [address] PCP - Ophthalmology Ophthalmology 02/11/13 Denise Woodson Ra, APRN INDUSTRIAL CONTROLS TECHNICIAN [address] [place] [address] PCP - General Family Practice 09/21/20 Denise Woodson Ra, APRN INDUSTRIAL CONTROLS TECHNICIAN [address] [place] [address] Assigned PCP 07/17/20 documented as of this encounter
--- OUTSIDE RECORDS SUMMARY | 2024-01-31 12:09 | XMS_ITS | Encounter Summary ---
Author Name Unknown Organization [facility] Address [address] [place] [address]. [place] [address] Care Team Providers Care Marine Steam Fitter Helper Name Role Phone Winston Villatoro OD Unavailable [phone] Denise Woodson Ra, APRN CONTAINER COORDINATOR Unavailable [phone] Denise Woodson Ra, APRN, CNP Primary Care Provid er Reason for Referral * Consultation (Routine: Next available opening) - Pending Review Specialty Diagnoses / Procedures Referred By Nila shah Referred To Contact Neurological Surgery Diagnoses Dural arteriovenous fistula Jeevan Sheth MD [address] [place] [address] Referral ID Status Reason Start Date Expiration Date V isits Requested Visits Authorized [id number] Pending Review 01/23/2024 01/22/2025 1 1 Question Answer Reason for Referral: Cerebrovascular Scheduling Instructions: [email or web address] will call you to coordinate your care as prescribed by your provider. If you don't hear from a client support representative within 2 business days, please call . 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 X-rays, CTs, MRIs, and other imaging must be pushed electronically to the [employer] system. Please be aware that coverage of these services is subject to the terms and limitations of your health insurance plan. Call member services at your health plan with any benefit or coverage questions. [email or web address] will call you to coordinate your care as prescribed by your provider. If you don't hear from a client support representative within 2 business days, please call . Encounter Details Date Type Department Care Team (Late st Contact Info) Description 01/23/2024 Orders Only [facility] [address] [place] [address] Delisa Manuel MD [address] [place] [address] Dural arteriovenous fistula (Primary Dx) Social History Tobacco Use Types Packs/Day Years [...] Description 02/03/2024 8:45 AM CDT Therapy Visit [facility] [address] [phone] Denise Woodson Ra, SET BUILDER CONTAINER COORDINATOR [address] [place] [address] Addis Rojas, PT [facility] [address] [place] [address] 02/04/2024 PRE VISIT [facility] [address] 3rd [place] [phone] Raul Hoyos MD [address] [place] [address] [id number] [place], [place] [id number] *-*INCOMING RECORDS*-* 02/04/2024 11:00 AM CDT Virtual Visit [facility] [address]rd [place] [phone] Raul Hoyos MD [address] [place] [address] [id number] [place] [address] 02/06/2024 8:30 AM CDT Office Visit [facility] [address] [place] [phone] Denise Woodson Ra, SET BUILDER CONTAINER COORDINATOR [address] [place], [place] [phone] 02/07/2024 2:00 PM CDT Therapy Visit [address] [phone] Danya You, PA [address] [facility] 213 [place], [place] [address] Charis Chacon SLP [facility] [address] [place] [address] 02/14/2024 12:45 PM CDT Therapy Visit [address] [phone] Danya You, PA [address] [facility] 213 [place], [place] [address] Isabel Beaulieu OTR [facility] [address] [place] [address] 02/14/2024 2:00 PM CDT Therapy Visit [address] [address] Danya You PA [address] [place] [place] [address] Charis Chacon, JUAN [facility] [address] [place] [address] 02/14/2024 2:45 PM CDT Therapy Visit [address] [address] Danya You, PA [address] [address] Maria Eugenia Nguyen, PT [address] [place] [address] 02/17/2024 2:45 PM CDT Therapy Visit [address] [address] Danya You, AMAIRANI [address] [place] [address] [address] Aliya Kim, CONSULTING SOLUTION MANAGER [address] [facility] [address] [place] [address] 02/19/2024 3:00 PM CDT Therapy Visit [address] [address] Danya You PA [address] [place] [address] [place] [address] Isabel Beaulieu, OTJah [address] [address] 02/26/2024 2:15 PM CDT Therapy Visit [facility] [address] [place] [address] Danya You, AMAIRANI [address] [address] Charis Chacon, J[facility]AN [facility] [address] [place] [address] 02/26/2024 3:00 PM CDT [facility] [address] [place] [address] Danya You, AMAIRANI [address] [address] Isabel Beaulieu [facility]TR [facility] [address] [place] [address] 02/27/2024 4:45 PM CDT Therapy [facility] [address] [place] [address] Danya You, PA [address] [facility] [address] [address] Vanessa Duggan, PT 03/05/2024 1:30 PM CDT Therapy Visit [facility] [address] [place] [address] Danya You PA [address] [address] Isabel Beaulieu OTR [facility] [address] [place] [address] 03/05/2024 3:15 PM CDT Therapy Visit [facility] [address] [place] [address] Danya You PA [address] [place] [address] [place] [address] Charis Chacon, JUAN [facility] [address] [place] [address] 03/05/2024 4:15 PM CDT Therapy Visit [address] [phone] Danya You, AMAIRANI [address] [place] [address] Delicia George, PT [facility] [address] [place] [address] 03/11/2024 2:15 PM CDT Therapy Visit [address] [phone] Danya You, PA [address] [place] [address] Isabel Beaulieu, JAIMIE [address] [address] 03/11/2024 3:00 PM CDT Therapy Visit [address] [phone] Danya You PA [address] [place] [address] Charis Chacon, JUAN [facility] [address] [place] [address] 03/11/2024 4:15 PM CDT Therapy Visit [facility] [address] [place] [phone] Danya You PA [address] [place] [address] Delicia George, PT [facility] [address] [place] [address] 03/17/2024 1:30 PM CDT Therapy Visit [address] [phone] Danya You, AMAIRANI [address] [place] [address] Isabel Beaulieu, OTR [address] [address] 03/17/2024 2:30 PM CDT Therapy Visit [address] [phone] Danya You, PA [address] [address] Charis Chacon, [facility] [address] [place] [address] 03/17/2024 4:00 PM CDT Therapy Visit [address] [phone] Danya You, AMAIRANI [address] [place] [address] Delicia George, PT [facility] [address] [place] [address] 03/23/2024 10:30 AM CDT Office Visit [facility] [address] [place] [phone] Denise Woodson Ra, SET BUILDER CONTAINER COORDINATOR [address] [place], [place] [phone] 03/26/2024 1:30 PM CDT Therapy Visit [address] [phone] Danya You, AMAIRANI [address] [place] [address] Isabel Beaulieu, OTR [address] [address] 03/26/2024 2:30 PM CDT Therapy Visit [address] [phone] Danya You, PA [address] [place] [address] Charis Chacon SLP [facility] [address] [place] [address] 03/26/2024 3:30 PM CDT Therapy Visit [address] [phone] Danya You, PA [address] [place] [address] Delicia George, PT [address] [address] 04/02/2024 2:15 PM CDT Therapy Visit [address] [phone] Danya You, PA [address] [address] Isabel Beaulieu, OTJah [address] [address] 04/02/2024 3:15 PM CDT Therapy Visit [address] [phone] Danya You, PA [address] [address] Charis Chacon, CONSULTING SOLUTION MANAGER [facility] [address] [place] [address] 04/02/2024 4:15 PM CDT Therapy Visit [address] [phone] Danya You, PA [address] [address] Delicia George, PT [address] [address] 04/09/2024 3:15 PM CDT Therapy Visit [address] [address] Danya You PA [address] [place] [address] Charis Chacon, JUAN [facility] [address] [place] [address] 04/09/2024 4:15 PM CDT Therapy Visit [address] [address] Danya You, AMAIRANI [address] [place] [address] Delicia George, PT [facility] [address] [address] 04/15/2024 9:30 AM CDT Therapy Visit [address] [address] Danya You, PA [address] [place] [address] Danya Restrepo SLP 04/23/2024 2:30 PM CDT Therapy Visit [address] [address] Danya You PA [address] [place] [address] Charis Chacon, JUAN [facility] [address] [place] [address] 06/23/2024 11:00 AM CDT Virtual Visit [facility] [address] [place] [address] [place] [address] Gurpreet Kristin Se, [facility] [address] [place] [address] 06/30/2024 2:00 PM CDT Virtual Visit [facility] [address] [facility] [place] [facility] [place] [address] Kristin Vázquez, [facility] [address] [place] [address] Scheduled Referrals Name Type Priority Associated Diagnoses Orde r Schedule Adult Neurosurgery Vice President Network Referral Referral Routine: Next available opening Dural arteriovenous fistula Expected: 01/23/2024 (Approximate), Expires: 01/22/2025 documented as of this encounter Visit Diagnoses Diagnosis Dural arteriovenous fistula- Primary Cerebral aneurysm, nonruptured documented in this encounter Additional Health Concerns Assessment Noted Time PHQ-9 Depression Total Score: 0 06/23/20 21 4:11 PM CDT documented as of this encounter Care Teams Marine Steam Fitter Helper Relationship Specialty Start Date End Date Winston Villatoro OD [facility] [place] [address] [facility] [address] [place] [address] PCP - Ophthalmology Ophthalmology 02/11/13 Denise Woodson Ra, APRN CONTAINER COORDINATOR [address] [address] [address] PCP - General Family Practice 09/21/20 Denise Woodson Ra, APRN CONTAINER COORDINATOR [address] [address] [place] [address] Assigned PCP 07/17/20 documented as of this encounter
--- OUTSIDE RECORDS SUMMARY | 2024-01-31 12:09 | XMS_ITS | Encounter Summary ---
Author Name Unknown Organization [facility] Address [address] [place] [address]. [place] [address] Care Team Providers Care Sound Installation Worker Name Role Phone Winston Villatoro OD Unavailable Denise Woodson Ra, APRN LEAD SUSTAINABILITY SPECIALIST Unavailable [phone] Denise Woodson Ra, APRN LEAD SUSTAINABILITY SPECIALIST Primary Care Provid er Reason for Visit * Auth/Cert Specialty Diagnoses / Procedures Referred By Nila shah Referred To Contact Med Surg Diagnoses seizure-like activity Ur [address] [place] [phone] Referral ID Status Reason Start Date Expiration Date Visits Re quested Visits Authorized [id number] 1 1 Encounter Details Date Type Department Care Team (Late st Contact Info) Description 01/21/2024 8:30 AM CDT Ancillary Procedure [facility] [address] [place] [address] [phone] Kev Ansari MD [address] [place] [address] [address] [place] [address] Anahy Jamil MD [address] [place] [address] Social History Tobacco Use Types Packs/Day Years [...] Description 02/03/2024 8:45 AM CDT Therapy Visit [facility] [address] [phone] Denise Woodson Ra, FIREBOAT OPERATOR LEAD SUSTAINABILITY SPECIALIST [address] [place], [place] [phone] Addis Rojas, PT [facility] [address] [place] [address] 02/04/2024 PRE VISIT [facility] [address] [phone] Raul Hoyos MD [address] [place] [address] *-*INCOMING RECORDS*-* 02/04/2024 11:00 AM CDT Virtual Visit [facility] [address] [phone] Raul Hoyos MD [address] [place] [address] 02/06/2024 8:30 AM CDT Office Visit [facility] [address] [place] [phone] Denise Woodson Ra, FIREBOAT OPERATOR LEAD SUSTAINABILITY SPECIALIST [address] [place], [place] [phone] 02/07/2024 2:00 PM CDT Therapy Visit [address] [phone] Danya You, PA [address] [place] [address] Charis Chacon SLP [facility] [address] [place] [address] 02/14/2024 12:45 PM CDT Therapy Visit [address] [phone] Danya You, AMAIRANI [address] [place] [address] Isabel Beaulieu OTR [address] [address] 02/14/2024 2:00 PM CDT Therapy Visit [address] [phone] Danya You, PA [address] [facility] [address] [place] [address] Charis Chacon SLP [place] [address] [place] [address] 02/14/2024 2:45 PM CDT Therapy Visit [address] [phone] Danya You PA [address] [place], [place] [address] Maria Eugenia Nguyen, PT [address] [place] [address] 02/17/2024 2:45 PM CDT Therapy Visit [address] [phone] Danya You, PA [address] [place], [place] [address] Aliya Kim, TIMBER MILL WORKER [address] [facility] [address] [place] [address] 02/19/2024 3:00 PM CDT Therapy Visit [address] [phone] Danya You, AMAIRANI [address] [id number] Isabel Beaulieu, OTR [address] [address] 02/26/2024 2:15 PM CDT Therapy Visit [address] [phone] Danya You, PA [address] [address] Charis Chacon, [facility] [address] [place] [address] 02/26/2024 3:00 PM CDT Therapy Visit [address] [phone] Danya You, PA 2650 [facility] [address] 956384 Isabel Beaulieu, OTR [facility] [address] [place] [address] 02/27/2024 4:45 PM CDT Therapy Visit [facility] [address] [place] [phone] Danya You, AMAIRANI [address] [place] [address] [id number] Vanessa Duggan, PT 03/05/2024 1:30 PM CDT Therapy Visit [facility] [address] [place] [phone] Danya You, AMAIRANI [address] [place] [place] [address] 102924 Isabel Beaulieu, OTR [facility] [address] [place] [address] 03/05/2024 3:15 PM CDT Therapy Visit [facility] [address] [place] [phone] Danya You, PA [address] 395134 Charis Chacon, [facility] [address] [place] [address] 03/05/2024 4:15 PM CDT Therapy Visit [facility] [address] [place] [phone] Danya You PA [address] [place] [address]104 Delicia George, PT [address] [address] 03/11/2024 2:15 PM CDT Therapy Visit [address] [phone] Danya You, PA [address] [address] Isabel Beaulieu, JAIMIE [address] [address] 03/11/2024 3:00 PM CDT Therapy Visit [address] [phone] Danya You, PA [address] [address] Charis Chacon, [facility] [address] [place] [address] 03/11/2024 4:15 PM CDT Therapy Visit [address] [phone] Danya Yuo, PA [address] [address] Delicia George, PT [address] [address] 03/17/2024 1:30 PM CDT Therapy Visit [address] [phone] Danya You PA 24[address] [facility] JIE SOTO [address] [place] [place] [address] Isabel Beaulieu, OTR [facility] [address] [place] [address] 03/17/2024 2:30 PM CDT Therapy Visit [address] [phone] Danya You, AMAIRANI [address] [address] Charis Chacon, [facility] [address] [place] [address] 03/17/2024 4:00 PM CDT Therapy Visit [address] [phone] Danya You, PA [address] [address] Delicia George, PT [facility] [address] [place] [address] 03/23/2024 10:30 AM CDT Office Visit [facility] [address] [place] [address] Denise Woodson Ra, FIREBOAT OPERATOR [facility] [address] [place], [place] [phone] 03/26/2024 1:30 PM CDT Therapy Visit [address] [phone] Danya You PA 2450 [facility] JIE SOTO [address] [place] [address] Isabel Beaulieu, OTR [facility] [address] [facility] [place] [address] 03/26/2024 2:30 PM CDT [facility] [address] [place] [phone] Danya You, AMAIRANI [address] [place] [place] [address] Charis Chacon, [facility] [address] [place] [address] 03/26/2024 3:30 PM CDT Therapy Visit [facility] [address] [place] [phone] Danya You, AMAIRANI 2450 [facility] JIE [address] [address] Delicia George, PT [facility] [address] [place] [address] 04/02/2024 2:15 PM CDT Therapy Visit [facility] [address] [place] [phone] Danya You, AMAIRANI [address] [place] [address] Isabel Beaulieu, OTR [facility] [address] [place] [address] 04/02/2024 3:15 PM CDT Therapy Visit [address] [phone] Danya You PA 2450 [facility] [address] [place] [address] Charis Chacon SLP [facility] [address] [place] [address] 04/02/2024 4:15 PM CDT Therapy Visit [address] [phone] Danya You, PA 2450 [facility] [address] [address] Delicia George, PT [facility] [address] [place] [address] 04/09/2024 3:15 PM CDT Therapy Visit [address] [phone] Danya You, PA [facility] [address] [place] [address] Charis Chacon, [facility] [address] [place] [address] 04/09/2024 4:15 PM CDT Therapy Visit [address] [phone] Danya You PA [facility] [address] [address] Delicia George, PT [facility] [address] [place] [address] 04/15/2024 9:30 AM CDT Therapy Visit [address] [phone] Danya You, PA 2450 [facility] [address] [place] [address] Danya Restrepo, TIMBER MILL WORKER 04/23/2024 2:30 PM CDT Therapy Visit [address] [phone] Danya You, PA 2450 [facility] [address] [place] [address] Charis Chacon, [facility] [address] [place] [address] 06/23/2024 11:00 AM CDT Virtual Visit [facility] [address] [phone] Kristin Vázquez, [facility] [address] [place] [address] 06/30/2024 2:00 PM CDT Virtual Visit [facility] [address] [place] [address] Kristin Vázquez, [facility] [address] [place] [address] documented as of this encounter Procedures Procedure Name Priority Date/Time Associated Diagnosis Comments EEG VIDEO 2-12 HRS UNMONITORED Routine 01/21/2024 12:15 PM CDT documented in this encounter Results * EEG Video 2-12 HRS Ummonitored (01/21/2024 12:15 PM CDT) Narrative [facility] - 01/21/2024 3:06 PM CDT EEG Video 2-12 HRS Ummonitored Result VIDEO EEG DATE: 01/21/2024 VIDEO EEG [id number] VIDEO EEG DAY#: 1 VIDEO EEG SOURCE [...] Airam Jay MD IMG EEG ORDERABLES [facility] documented in this encounter Visit Diagnoses Not on filedocumented in this encounter Additional Health Concerns Assessment Noted Time PHQ-9 Depression Total Score: 0 06/23/20 21 4:11 PM CDT documented as of this encounter Care Teams Sound Installation Worker Relationship Specialty Start Date End Date Winston Villatoro OD [facility] [place] [address] [place] [address] PCP - Ophthalmology Ophthalmology 02/11/13 Denise Woodson Ra, APRN LEAD SUSTAINABILITY SPECIALIST [address] [place] [place] [address] PCP - General Family Practice 09/21/20 Denise Woodson Ra, APRN LEAD SUSTAINABILITY SPECIALIST [address] [place] [address] Assigned PCP 07/17/20 documented as of this encounter
--- OUTSIDE RECORDS SUMMARY | 2024-01-31 12:09 | XMS_ITS | Encounter Summary ---
Author Name Unknown Organization [facility] Address [address] [place] [address] Care Team Providers Care Dental Aide Name Role Phone Yung Madrigal MD Unavailable Unavailable Winston Villatoro OD Unavailable [phone] Denise Woodson Ra, APRN [employer] NANNY Unavailable [phone] Denise Woodson Ra, APRN, CNP Primary Care Provid er Reason for Referral * Consultation (Routine: Next available opening) - Pending Review Specialty Diagnoses / Procedures Referred By Contlandon t Referred To Contact Diagnoses Seizure-like activity (H) History of seizure Cerebrovascular accident (CVA), unspecified mechanism (H) Delisa Manuel MD [address] [place] [address] Referral ID Status Reason Start Date Expiration Date V isits Requested Visits Authorized [id number] Pending Review 01/22/2024 01/21/2025 1 1 Question Answer Reason for Referral: Stroke Scheduling Instructions: [facility] will call you to coordinate your care as prescribed by your provider. If you don't hear from a sales representative uniforms within 2 business days, please call . Additional Information: Recommended to follow up with stroke neurology AND epileptology within 2 months of ARU discharge. Comments Please be aware that coverage of these services is subject to the terms and limitations of your health insurance plan. Call member services at your health plan with any benefit or coverage questions. [facility] will call you to coordinate your care as prescribed by your provider. If you don't hear from a sales representative uniforms within 2 business days, please call . Reason for Visit * Auth/Cert Specialty Diagnoses / Procedures Referred By Nila t Referred To Contact Med Surg Diagnoses seizure-like activity Ur [address] [place] [phone] Referral ID Status Reason Start Date Expiration Date Visits Re quested Visits Authorized [id number] 1 1 Encounter Details Date Type Department Care Team (Late st Contact Info) Description 01/19/2024 11:16 PM CDT - 01/22/2024 2:19 PM CDT Hospital Encounter [facility] Med Surg [address] [place] [phone] Luis Reynolds DO [address] [place] [id number] Anahy Jamil MD [address] [place] [address] [phone] Jeevan Sheth MD [address] [place] [id number] Fibromyalgia (Primary Dx); Pain of right upper extremity; Nausea; Other constipation; Generalized anxiety disorder; History of stroke; Seizure-like activity (H); History of seizure; Cerebrovascular accident (CVA), unspecified mechanism (H); Dural arteriovenous fistula Discharge Disposition: Acute Rehab Facility Social History Tobacco Use Types Packs/Day Years [...] Sign Reading Time Taken Comments Blood Pressure 136/76 01/22/2024 8:27 AM CDT Pulse 85 01/22/2024 8:27 AM CDT Temperature 36.6 ??C (97.8 ??F) 01/22/2024 8:27 AM CD T Respiratory Rate 19 01/22/2024 8:27 AM CDT Oxygen Saturation 97% 01/22/2024 12:59 AM CDT Inhaled Oxygen Concentration - - Weight - - Height - - Body Mass Index - - documented in this encounter Discharge Summaries * Delisa Manuel MD - 01/22/2024 1:11 PM CDT [facility] Discharge Summary - Medicine & Pediatrics Date of Admission: 01/19/2024 Date of Discharge: 01/22/2024 Discharging Provider: Dr. Jeevan Sheth Discharge Service: [facility] Medicine Service Discharge Diagnoses Seizure-like activity S/P tonic clonic seizure, witnessed (01/13, prior to admission) Recent acute ischemic stroke, bihemispheric 2/2 procedural complication Right-sided weakness and numbness, improving Headaches, frontal, intermittent AV fistula, left sigmoid dural Pulsatile tinnitus RUE pain Fibromyalgia MONAE Clinically Significant Risk Factors # Obesity: Estimated body mass index is 31.78 kg/m?? as calculated from the following: Height as of 01/17/24: 1.746 m (5' 8.74). Weight as of 01/17/24: 96.9 kg (213 lb 9.6 oz). Follow-ups Needed After Discharge Follow-up Appointments Follow Up and recommended labs and tests Follow up with primary care provider within 7-10 days of ARU discharge. Follow up with neurology within 2 months of ARU discharge - referral placed. Follow up with [facility] Interventional neuroradiology after ARU discharge for repair of left sigmoid dural AV fistula - referral placed. Unresulted Labs Ordered in the Past 30 Days of this Admission Date and Time Order Name Status Description 01/21/2024 1:07 PM Lupus Anticoagulant Panel In process These results will be followed up by neurology (see other labs below). Discharge Disposition Discharged to rehabilitation facility Condition at discharge: Stable Hospital Course Alcon Zamora is a 48-year-old female PMH Lizy-Danlos syndrome, MONAE, MDD, asthma, fibromyalgia, history of ASD (repaired), and recent cerebral angiogram (01/08) complicated by multifocal stroke (01/12) and witness seizure (01/13) admitted 01/19/24 for seizure-like activity. The following problems wereaddressed during her hospitalization: # Seizure-like activity # S/P tonic clonic seizure, witnessed (01/13) Witnessed seizure 01/13 [facility]. Initiated on Keppra. Suspected acute related to recent stroke. Admitted here for episodes of seizure-like activity at ARU, where patient became nonverbal, had REM and repetitive teeth grinding. Resolved at this time. Per Neuro, following normal EEG 01/20 and reassuring MRI 01/19, low suspicion for seizure. Neuro does not feel episodes are likely to recur. May have been related to overexertion after surgery in the setting of recent stroke. At time of discharge, no additional treatment recommended. If similar episodes recur, OK to NOT treat and to call on-call neurology for questions. - Seizure precautions - Continue [employer] Keppra 750 mg BID - If recurrent episode of staring/rapid eye movement/teeth grinding -- OK to NOT treat and call on-call neurology - True seizures not expected; if new tonic-clonic movement should treat with lorazepam per standardof care # Recent acute ischemic stroke, bihemispheric 2/2 procedural complication # Right-sided weakness and numbness, improving # Headaches, frontal, intermittent # S/P diagnostic catheter cerebral angiogram (01/08) Underwent planned diagnostic catheter cerebral angiogram for left sided pulsatile tinnitus 01/08. Developed right-sided weakness. MRI 01/12 with multifocal stroke. Per [facility] neurology note 01/14, suspect clot formation due to catheter. Plan for hypercoagulability workup given atypical clot formation. N oted that lipid management had less role because etiology was not from plaque. Admitted to acute rehabilitation for intensive therapy. Progressing well in PT/OT. Cleared by GEOMAGNETICIAN. Given etiology of recent stroke suspected to be atypical clot formation, patient was initiated on Lovenox for DVT prophylaxis at ARU. Reasonable to continue during admission. - Return to ARU - Follow hypercoagulability workup: - Tests pending from [facility], 01/14 (see [facility] summary): Factor V, anti- cardiolipin IgG, IgM, IgA - Tests pending from [facility], 5/7: factor II gene mutation, Lupus anticoagulant, Cardiolipin antibody - Continue ASA 325 mg daily - Goal normotensive BP - Continue rosuvastatin 20 mg at bedtime; patient will discuss need for ongoing statin with outpatient neurologist - Continue enoxaparin 40 mg daily, starting 5/8 PM # AV fistula, left sigmoid dural # Pulsatile tinnitus Weeks prior to admission, patient had pulsatile tinnitus that lead to cerebral angiogram 01/08, confirmed left sigmoid dural AV fistula. Planned to follow with [facility] for repair but would like to transition cares to [facility]. - [facility] IR referral at discharge # RUE pain # Fibromyalgia Reports new aches in her right upper extremity which feel similar to past fibromyalgia flares, feelmuscular and also related to being bedridden. Relieved by massage. No other concerning symptoms with this. - Scheduled APAP - Scheduled celecoxib 100 mg BID - Lidocaine patches PRN - Voltaren gel PRN - Last resort: oxycodone 5 mg q6h PRN for 3 days # Anxiety # Depression # Psychosocial stressors Reports understandable stress given recent events. Denied SI/HI. Coping admirably. 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 - Hydroxyzine PRN - Work form completed Chronic/Stable: # History of ASD, repaired: Per chart, has Amplatz septal occluder device in place. # Insomnia - [employer] Atarax 50 mg at bedtime - [employer] Trazodone 100 mg at bedtime # Asthma - [employer] Breo Ellipta qday # Constipation - [employer] Magnesium oxide 400 mg at bedtime - PRN Senna Consultations This Hospital Stay NEUROLOGY GENERAL ADULT IP CONSULT PHYSICAL THERAPY ADULT IP CONSULT OCCUPATIONAL THERAPY ADULT IP CONSULT SPIRITUAL HEALTH SERVICES IP CONSULT PSYCHOLOGY ADULT IP CONSULT PSYCHIATRY IP CONSULT CARE MANAGEMENT / SOCIAL WORK IP CONSULT Code Status Full Code The patient was discussed with Dr. Sheth. MD [facility] [id number] Physical Exam Vital Signs: Temp: 97.8 ??F (36.6 ??C) Temp src: Oral BP: 136/76 Pulse: 85 Resp: 19 SpO2: 97 % O2 Device: None (Room air) Weight: 0 lbs 0 oz GENERAL: alert and no distress EYES: Eyes grossly normal to inspection. No discharge or erythema, or obvious scleral/conjunctival abnormalities. RESP: No audible wheeze, cough, or visible cyanosis. SKIN: Visible skin clear. No significant rash, abnormal pigmentation or lesions. NEURO: Cranial nerves grossly intact. Mentation and speech appropriate for age. PSYCH: Appropriate affect, tone, and pace of words Primary Care Physician Denise Woodson Discharge Orders Adult Neurology [place] Referral Follow Up and recommended labs and tests Follow up with primary care provider within 7-10 days of ARU discharge. Follow up with neurology within 2 months of ARU discharge - referral placed. Follow up with [facility] Interventional neuroradiology after ARU discharge for repair of left sigmoid dural AV fistula - referral placed. Activity - Up with nursing assistance Reason for your hospital stay You were hospitalized for concern for abnormal spells concerning for seizures. We had neurology seeyou and an EEG was completed that looked reassuring. Neurology does not feel you were having recurrent seizures, and believes these are unlikely to recur. They recommend no additional treatment. Full Code Seizure precautions Fall precautions Diet Follow this diet upon discharge: Orders Placed This Encounter Combination Diet Regular Diet Adult Significant Results and Procedures Most Recent 3 CBC's: Recent Labs Lab Test 01/21/24 0551 01/20/24 0629 01/19/24 2133 WBC 8.6 8.3 11.4* HGB 13.6 14.0 15.1 MCV 90 90 91 PLT 181 202 215 Most Recent 3 BMP's: Recent Labs Lab Test 01/21/24 0551 01/20/24 0629 01/19/24 2355 NA 139 138 139 POTASSIUM 4.3 4.2 4.2 CHLORIDE 106 105 104 CO2 26 26 24 BUN 16.5 15.4 16.7 CR 0.71 0.68 0.68 ANIONGAP 7 7 11 TIFF 8.7 8.7 9.1 GLC 88 88 99 Most Recent 2 LFT's: Recent Labs Lab Test 07/27/21 0857 04/21/21 0918 AST 8 10 ALT 18 18 ALKPHOS 67 65 BILITOTAL 0.5 0.7 Most Recent ESR & CRP: Recent Labs Lab Test 09/10/18 1331 SED 15 , Results for orders placed or performed during the hospital encounter of 01/19/24 MR Brain w/o & w Contrast Narrative [...] with the findings. ANA LATHAM MD MRA Brain ([place]) wo Contrast Narrative EXAM MRA BRAIN ([place]) W/O CONTRAST 01/20/2024 6:50 PM HISTORY: Multifocal CVA 01/12 with seizure like activity 01/18; Neuro rec'd repeat MRI to rule out recurrent CVA COMPARISON: No images. Outside CTA report for 01/09/2024 obtained through Care Everywhere. TECHNIQUE: Using a 3D [id number] image acquisition technique, MRA of the major [...] agree with the findings. ANA LATHAM MD Discharge Medications Discharge Medication List as of 01/22/2024 2:19 PM START taking these medications Details acetaminophen (TYLENOL) 325 MG tablet Take 3 tablets (975 mg) by mouth 3 times daily, Transitional calcium carbonate (TUMS) 500 MG chewable tablet Take 1 tablet (500 mg) by mouth 4 times daily as needed for heartburn, Transitional celecoxib (CELEBREX) 100 MG capsule Take 1 capsule (100 mg) by mouth 2 times daily, Transitional diclofenac (VOLTAREN) 1 % topical gel Apply 2 g topically 4 times daily as needed for moderate pain, Transitional enoxaparin ANTICOAGULANT (LOVENOX) 40 MG/0.4ML syringe Inject 0.4 mLs (40 mg) Subcutaneous every 24hours . Start 5 PM, Transitional hydrOXYzine HCl (ATARAX) 50 MG tablet Take 1 tablet (50 mg) by mouth nightly as needed for anxiety,Transitional Lidocaine (LIDOCARE) 4 % Patch Place 1 patch onto the skin every 24 hours To prevent lidocaine toxicity, patient should be patch free for 12 hrs daily.Transitional methyl salicylate-menthol (ICY HOT) ointment Apply topically every 6 hours as needed (pain)Transitional ondansetron (ZOFRAN ODT) 4 MG ODT tab Take 1 tablet (4 mg) by mouth every 6 hours as needed for nausea or vomiting, Transitional oxyCODONE (ROXICODONE) 5 MG tablet Take 1 tablet (5 mg) by mouth every 6 hours as needed for severepain (If pain not controlled with other pain modalities), Transitional senna-docusate (SENOKOT-S/PERICOLACE) 8.6-50 MG tablet Take 2 tablets by mouth 2 times daily as needed for constipation, Transitional CONTINUE these medications which have NOT CHANGED Details albuterol (PROAIR HFA/PROVENTIL HFA/VENTOLIN HFA) 108 (90 Base) MCG/ACT inhaler Inhale 2 puffs intothe lungs every 4 hours as needed for shortness of breath / dyspnea or wheezing, Disp-1 Inhaler, R-3, [facility] may dispense brand covered by insurance (Proair, or proventil or ventolin or generic albuterol inhaler) Pt will call when needed. aspirin (ASA) 325 MG EC tablet Take 325 mg by mouth daily, Historical BREO ELLIPTA 200-25 MCG/INH Inhaler INHALE 1 PUFF INTO THE LUNGS DAILY, Disp-3 each, R-1, E-Prescribe cetirizine (ZYRTEC) 10 MG tablet Take 10 mg by mouth daily, Historical levETIRAcetam (KEPPRA) 750 MG tablet Take 750 mg by mouth 2 times daily, Historical magnesium oxide 200 MG TABS Take 200 mg by mouth at bedtime, Historical psyllium (METAMUCIL) 28.3 % packet Take 1 packet by mouth daily, Historical rosuvastatin (CRESTOR) 20 MG tablet Take 20 mg by mouth at bedtime, Historical traZODone (DESYREL) 50 MG tablet Take 2 tablets (100 mg) by mouth At Bedtime, Disp-180 tablet, R-3,E-Prescribe STOP taking these medications Chelated Magnesium 100 MG TABS Comments: Reason for Stopping: Allergies Allergies Allergen Reactions Mold Dizziness and GI Disturbance Bupropion GI Disturbance and Other (See Comments) Diarrhea and stomach ache Erythromycin GI Disturbance Associated attestation - Jeevan Sheth MD - 01/22/2024 8:03 PM CDT Physician Attestation I saw and evaluated this patient prior to discharge. I discussed the patient with the resident/fellow and agree with plan of care as documented in the note. I personally reviewed vital signs, medications, labs, and imaging. I personally spent 25 minutes on discharge activities. Jeevan Sheth MD Date of Service (when I saw the patient): 01/22/24 documented in this encounter Medications at Time [...] by mouth 2 times daily 01/22/2024 01/24/2024 diclofenac (VOLTAREN) 1 % topical gelIndications:Fibromy algia,Pain of right upper extremity Apply 2 g topically 4 times daily as needed for moderate pain 01/22/2024 01/24/2024 enoxaparin ANTICOAGULANT (LOVENOX) 40 MG/0.4ML syringeIndications:His tory of stroke Inject 0.4 mLs (40 mg) Subcutaneous every 24 hours . Start 5/8 PM 01/22/2024 01/24/2024 hydrOXYzine HCl (ATARAX) 50 MG tabletIndications:Gene ralized [...] as of this encounter Progress Notes * Luciano Cerrato MD - 01/22/2024 12:21 PM CDT [facility] Neurology Progress Note Patient Name: Alcon Zamora : 1975 Date of Service: January 22, 2024 Primary care provider: Denise Woodson Ra Interval history: Re discussed event with patient. She has full recollection of event, involving eye fluttering, confounding by hypertension, headache with migrainous features. She thinks she may have overworked herself as well and has a good plan with mental imagery to prevent another episode. Past Medical History: Diagnosis Date Acute posthemorrhagic [...] twin sister Stroke (H) 01/17/2024 Uncomplicated asthma Medications Medications Prior to Admission Medication Sig Dispense Refill Last Dose albuterol (PROAIR HFA/PROVENTIL HFA/VENTOLIN HFA) 108 (90 Base) MCG/ACT inhaler Inhale 2 puffs intothe lungs every 4 hours as needed for shortness of breath / dyspnea or wheezing 1 Inhaler 3 Unknown aspirin (ASA) 325 MG EC tablet Take 325 mg by mouth daily 01/20/2024 BREO ELLIPTA 200-25 MCG/INH Inhaler INHALE 1 PUFF INTO THE LUNGS DAILY 3 each 1 01/20/2024 cetirizine (ZYRTEC) 10 MG tablet Take [...] by mouth At Bedtime 180 tablet 3 01/19/2024 Allergies Allergies Allergen Reactions Mold Dizziness and GI Disturbance Bupropion GI Disturbance and Other (See Comments) Diarrhea and stomach ache Erythromycin GI Disturbance Physical Examination Vitals: BP 136/76 (BP Location: Left arm) Pulse 85 Temp 97.8 ??F (36.6 ??C) (Oral) Resp 19 LMP 01/07/2006 SpO2 97% General: Adult female patient, lying in bed, NAD Neuro: Mental status: Awake, alert, attentive, oriented to self, time, place, and circumstance. Language is fluent and coherent with intact comprehension of complex commands, naming and repetition. Cranial nerves: VFF, PERRL, conjugate gaze, EOMI, facial sensation intact, face symmetric, shouldershrug strong, tongue/uvula midline, no dysarthria. Motor: Normal bulk and tone. No abnormal movements. 5/5 strength in upper and lower extremities. Sensory: Intact to light touch. Investigations Narrative & Impression EEG Video 2-12 HRS Ummonitored Result VIDEO EEG DATE: 01/21/2024 VIDEO EEG [id number] VIDEO EEG #: 1 VIDEO EEG SOURCE FILE DURATION: 3 hours 17 minutes PATIENT INFORMATION: Alcon Zamora is a 48 year old year old female with PMH Lizy-Danlos syndrome, MONAE, MDD, asthma, fibromyalgia, history of ASD (repaired), and recent cerebral angiogram (01/08) complicated by multifocal stroke (01/12) and witness grand-mal seizure admitted 01/19/24 for seizure-like activity. EEG is being done to evaluate for seizures [...] or electrographic seizures during this recording. Impression: This is a normal EEG. EXAM: MR BRAIN W/O & W CONTRAST [...] likely due to the reported subacute infarcts. Impression/Recommendations Jose Zamora is a pleasant 48 year old old female seen in follow up by neurology team today. She hada stroke recently s/p cerebral angiogram. To review of MRI and EEG data I think seizure is less likely in addition to review of spell which did not have seizure semiology. She think she has strategies to prevent another one, she feels she may have been over exerting herself in her quest to get bethanie r. I am hopeful these will be unlikely to recur. All of her questions answered. No additional work up or new medications required at this time. Thank you for involving Neurology in the care of Alcon Zamora. Please do not hesitate to call withquestions/concerns (consult pager [phone]). Choco Cerrato MD L[employer] Carrier of Neurology [facility] * Fabi De Leon RN - 01/22/2024 10:53 AM CDT Care Management Follow Up/Discharge Note Length of Stay (days): 2 Expected Discharge Date: 01/22/2024 Concerns to be Addressed: discharge planning Patient plan of care discussed at interdisciplinary rounds: Yes Anticipated Discharge Disposition: FVARU Anticipated Discharge Services: None Anticipated Discharge DME: None Patient/family educated on Medicare website which has current facility and service quality ratings:no Education Provided on the Discharge Plan: Yes Patient/Family in Agreement with the Plan: yes Referrals Placed by CM/SW: Internal Clinic Care Coordination Private pay costs discussed: Not applicable Additional Information: Received call from Melvin (CHANNING) in AM, ARU doctor requesting a note from either Medicine or Neurology with plan going forward if patient would contiue with seizures (how would ARU proceed) also would like statement as to what maybe causing the seizures E.G psychogenic etc. If these issues can be resolved would be able to take patient later today. Above information given to Delisa Vyas who stated she will address with neurology. RTW form completed by patient and provider, RNCC faxed to Human Resources Department. RNCC gave original back to patient. 11:22 AM Addendum: Per [facility] Neuro to see patient after lunch Per ARU if Neuro can put in note and DC orders and Summary can be completed they can do a 2PM rollover. Above information conveyed to [place]'s team. Patient will be 2 PM rollover to [facility] Patient, Bedside RN notified Maritza De Leon BSN RN [facility] 5ME [phone] Nurse Coordinator Securely message with [facility] Surg RNCC * Jaleesa Ashford PT - 01/21/2024 2:44 PM CDT 01/21/24 1402 Signing Clinician's Name / Credentials Signing clinician's name / credentials Jaleesa Ashford PT, DPT Functional Gait Assessment (Edward Vargas., Yanna Quinones F., et al. (2004)) 1. GAIT LEVEL SURFACE 1 (12.4 seconds) 2. CHANGE IN GAIT SPEED 0 (loss of balance when asled to slow speed from fast speed, needed assist to prevent fall) 3. GAIT WITH HORIZONTAL HEAD TURNS 0 (needs assist to maintain/recover balance) 4. GAIT WITH VERTICAL HEAD TURNS 0 (needs assist to maintain/recover balance) 5. GAIT AND PIVOT TURN 0 (LOB, needs assist to recover) 6. STEP OVER OBSTACLE 1 7. GAIT WITH NARROW BASE OF SUPPORT 0 8. GAIT WITH EYES CLOSED 0 9. AMBULATING BACKWARDS 0 10. STEPS 2 Total Functional Gait Assessment Score TOTAL SCORE: (MAXIMUM SCORE 30) 4 Functional Gait Assessment (FGA): The FGA assesses postural stability during various walking tasks. Gait assistive device used: None Scores of <22 /30 have been correlated with predicting falls in community- dwelling older adults according to Sam & Manpreet 2010. Scores of <18 /30 have been correlated with increased risk for falls in patients with ParkinsonsDisease according to Raúl Cates Leal et al 2014. Minimal Detectable Change for patients with acute/chronic stroke = 4.2 according to Thiberny & Ritschel 2009 Minimal Detectable Change for patients with vestibular disorder = 8 according to Sam & Manpreet 2010 Assessment (rationale for performing, application to patient? s function & care plan): Performed to assess balance with gait. Scored at 4/30. Pt will benefit from continued PT to train and progress dynamic balance, functional strength and endurance in order for improved independence and safety with ambulation. * Jaleesa Ashford PT - 01/21/2024 2:43 PM CDT 01/21/24 1300 Appointment Info Signing Clinician's Name / Credentials (PT) Jaleesa Ashford PT, DPT Living Environment People in Home spouse;child(vipul), adult Current Living Arrangements house Home Accessibility stairs to enter home Number of Stairs, Main Entrance 2 Stair Railings, Main Entrance none Number of Stairs, Within Home, Primary nine Stair Railings, Within Home, Primary (1 railing for all sets of interior steps) Living Environment Comments Pt reports she lives in 4 level home kitchen, dining & living room are on main level (no bathroom). 9 steps up to bedroom & bathroom with tub shower (deep tub). From main level, 9 steps down to level with pt's office & family room & bathroom (standard tub/shower). Laundry is an additional 9 steps down from office/family room level. 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 Baseline IND with all mobility and ADLs/IADLs. Admitted from ARU and there pt had progressed to mod ind in room with walker, still needing SBA-CGA for ambulation in open environments General Information Onset of Illness/Injury or Date of Surgery 01/19/24 Referring Physician Len Camejo, DO Patient/Family Therapy Goals Statement (PT) Pt wants to be independent and get back to work. Pt reports her main priority is to get back to work Pertinent History of Current Problem (include personal factors and/or comorbidities that impact thePOC) Per chart, Alcon Zamora is a 48-year-old female PMH Lizy-Danlos syndrome, MONAE, MDD, asthma, fibromyalgia, history of ASD (repaired), and recent cerebral angiogram (01/08) complicated by multifocal stroke (01/12) and witness seizure admitted 01/19/24 for seizure-like activity. Existing Precautions/Restrictions fall;seizures Cognition Orientation Status (Cognition) oriented to;disoriented to;person;place;situation (oriented to month & yr, not specific date) Cognitive Status Comments Pt reports not feeling cognitively at her baseline & reports her cognition is her main priority for recovery Pain Assessment Patient Currently in Pain (did not state) Posture Posture Not impaired Range of Motion (ROM) Range of Motion ROM is WFL Strength (Manual Muscle Testing) Strength Comments Pt demos functional weakness with transfers, relies on UE pushoff, effortful sit>stand from lower surfaces Bed Mobility Comment, (Bed Mobility) mod ind with hospital bed features Transfers Comment, (Transfers) mod ind with walker, CGA-Dania when fatigued without AD Gait/Stairs (Locomotion) Comment, (Gait/Stairs) Ambulating in room mod ind with FWW at PT arrival, relies on B UE support onwalker for balance; with no AD needs CGA for ambulation on flat surface without balance challenges.Pt with impaired balance and gait with dual task or balance challenges, see below & separate note on FGA Balance Balance Comments Impaired dynamic balance, pt scored 4/30 on FGA indicating significant balance impairment. Pt compensates well with walker and ambulates safely for short distances/ in room with walker support but needs assist for ambulation without AD Sensory Examination Sensory Perception Comments pt reports numbness to face with exertion, reports she had this at [facility]U also Clinical Impression Criteria for Skilled Therapeutic Intervention Yes, treatment indicated PT Diagnosis (PT) decreased independence with functional mobility Influenced by the following impairments impaired functional strength, endurance, coordination and balance Functional limitations due to impairments decreased independence with bed mobility, transfers, gait, stairs Clinical Presentation (PT Evaluation Complexity) evolving (recent seizure- undergoing work up, fatigues fairly quickly) Clinical Presentation Rationale clinical judgement, pt presentation Clinical Decision Making (Complexity) moderate complexity Planned Therapy Interventions (PT) balance training;bed mobility training;cryotherapy;gait training;home exercise program;manual therapy techniques;motor coordination training;neuromuscular re-education;patient/family education;ROM (range of motion);stair training;strengthening;stretching;transfer training;progressive activity/exercise;home program guidelines Risk & Benefits of therapy have been explained evaluation/treatment results reviewed;care plan/treatment goals reviewed;current/potential barriers reviewed;risks/benefits reviewed;participants voiced agreement with care plan;participants included;patient Clinical Impression Comments Pt presents from [facility]U for work up of seizure, with recent history of stroke & had been rehabbing at ARU. She presents well below baseline independent mobility with significant balance deficits as charachterized by 01/13 on FGA (see note). She will benefit from continued skilled therapies in hospital and at ARU to progress and optimize recovery of functional mobility. PT Total Evaluation Time PT Eval, Moderate Complexity Minutes (99706) 30 (includes time for FGA, see separate note) Physical Therapy Goals PT Frequency 6x/week PT Predicted Duration/Target Date for Goal Attainment 02/04/24 PT: Bed Mobility Independent;Supine to/from sit;Rolling;Bridging PT: Transfers Modified independent;Sit to/from stand;Bed to/from chair (LRAD) PT: Gait Modified independent;Greater than 200 feet (LRAD or no AD) PT: Stairs Modified independent;9 stairs;Rail on right (AND 2 steps no rail Dania or better) Therapeutic Activity Therapeutic Activities: dynamic activities to improve functional performance Minutes (59205) 15 Symptoms Noted During/After Treatment Fatigue Treatment Detail/Skilled Intervention Ambulation in [place] to/from area for FGA & stairs with walker and SBA, multiple bouts of ~20-50 ft in addition to distance ambulated for FGA (see eval). Edu pt on results of FGA indicating balance impairment and recommendation to return to ARU to continue working on mobility, balance and strength. Pt completed several sit<>stand from folding chair during session for seated breaks during FGA, pt initially performing with SBA, needing CGA-light Dania for balance as pt fatigues. PT Discharge Planning PT Plan Gait without AD with dual task or balance challenges, sit<>stand reps/LE strengthening PT Discharge Recommendation (DC Rec) Acute [facility]hab Center-Motivated patient will benefit from intensive, interdisciplinary therapy. Anticipate will be able to tolerate 3 hours of therapy per day PT Rationale for DC Rec Impaired balance with FGA 01/13, will benefit from intensive therapies at MAU to optimize recovery of mobility & independence PT Brief overview of current status OK to be mod ind in room with walker during the day, SBA at night or on pt request (e.g. if fatigued); needs CGA for ambulation without AD Total Session Time Timed Code Treatment Minutes 15 Total Session Time (sum of timed and untimed services) 45 * Nisa Haines MSW - 01/21/2024 11:31 AM CDT Care Management [...] stable to discharge today. Reached out to rehab to update them. Per rehab, Our beds for today are spoken for, but can definitely put her on the radar for tomorrow. Will keep you posted later this afternoon on how our beds are looking for tomorrow. Will await follow up and update patient once I know more. Addendum 1:21 PM: Social work received a call from Janna @ rehab. Janna is wondering if patient needs ARU or if she is safe enough to discharge to home. GUILLERMO called over to the PT office to discuss with them. Left a voicemail. Awaiting a call back. Addendum 2:50 PM: Spoke with Janna in admissions at [facility]. They can accept patient tomorrow for a tentative roll over at 12pm pending there are no issues with patients EEG. Results are still pending. Updated [facility] team. Will meet with patient shortly at bedside to update her as well. Care management continues to follow. Accepted: [facility] [address] [place] [address] P: [phone] F: [phone] [address], [facility] 5 Med Surg X Ray Nurse [facility] Pager: [phone] * Airam Jay MD - 01/21/2024 6:42 AM CDT [facility] Progress Note - [facility] Date of Admission: 01/19/2024 [...] unremarkable EEG, may need to transfer to EB for vEEG - Seizure precautions - Continue CONSTRUCTION TRADES CONTRACTOR Keppra 750 mg BID - If recurrent [...] therapy. Progressing well in PT/OT. Cleared by GEOMAGNETICIAN. Consults: - Neurology consulted; appreciate recommendations - [...] dural AV fistula. Planned to follow with [facility] Neurology for repair- but would like to transition cares to [facility]. - [facility] Interventional Neuroradiology referral at discharge # DVT prophylaxis Given etiology of recent stroke suspected to be atypical clot formation, patient was initiated on Lovenox for DVT prophylaxis at [facility]U. Reasonable to continue during admission. - Lovenox daily # Anxiety # Depression # Psychosocial stressors Reports understandable stress given recent events. Denied SI/HI. Coping admirably. 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 - Continue junior automation engineer support - Work form Chronic/Resolved/Stable: # History of ASD, repaired Per chart, has Amplatz septal occluder device in place. # Insomnia - CONSTRUCTION TRADES CONTRACTOR Atarax 50 mg at bedtime - CONSTRUCTION TRADES CONTRACTOR Trazodone 100 mg at bedtime # Asthma - CONSTRUCTION TRADES CONTRACTOR Breo Ellipta qday # Constipation - CONSTRUCTION TRADES CONTRACTOR Magnesium oxide 400 mg at bedtime - [...] financial concerns due to not qualifying for [place] due to not being at her job long enough.) # Asthma: noted on problem list Disposition Plan Expected Discharge Date: 01/21/2024, 9:00 AM Discharge Comments: Anticipate med ready 01/20, once neuro sees her and plan in place. Can she returnto ARU? The patient's care was discussed with the Attending Physician, Dr. Jamil . Airam Jay MD [facility] Securely message with Therac[employer]more info) Text page via [employer] Paging/Directory See signed in provider for up [...] CN II-XII intact. Symmetric 5/5 strength for bank appraiser strength and hip extension. Psych: Mood appropriate [...] (from the past 24 hour(s)) MRA Brain ([place]) wo Contrast Narrative EXAM MRA BRAIN ([place]) W/O CONTRAST 01/20/2024 6:50 PM HISTORY: Multifocal CVA 01/12 with seizure like activity 01/18; Neuro rec'd repeat MRI to rule out recurrent CVA COMPARISON: No images. Outside CTA report for 01/09/2024 obtained through Care Everywhere. TECHNIQUE: Using a 3D [id number] image acquisition technique, MRA of the major [...] findings. ANA LATHAM MD Associated attestation - Jeevan Sheth MD - 01/21/2024 9:30 PM CDT Physician Attestation I saw this patient with the resident and agree with the resident/fellow's findings and plan of careas documented in the note. 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 MRI shows no new lesions, EEG ongoing today. Neurology consulted, appreciate recommendations. Jeevan Sheth MD Date of Service (when I saw the patient): 01/21/24 * Chrissy Hunter RN - 01/20/2024 7:03 [...] Jay MD - 01/20/2024 7:26 AM CDT [facility] Progress Note - [facility] Date of Admission: 01/19/2024 Major Plans Today: - Neurology consult - Continue PT/OT - Health Psychology not available; seen by junior automation engineer - Discuss Lovenox with PharmD given AV [...] recommendations Management: - Seizure precautions - Continue CONSTRUCTION TRADES CONTRACTOR Keppra 750 mg BID - If recurrent [...] therapy. Progressing well in PT/OT. Cleared by GEOMAGNETICIAN. Continues to have right-sided weakness with complex, [...] but would like to transition cares to [facility]. - Neurology consulted; appreciate recommendations - Confirm Lovenox for DVT ppx with PharmD # Anxiety # Depression # Psychosocial stressors Reports understandable stress given recent events. Denied SI/HI. Coping admirably. 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 - Continue junior automation engineer support Chronic/Stable # History of ASD, repaired Per chart, has Amplatz septal occluder device in place. # Insomnia - CONSTRUCTION TRADES CONTRACTOR Atarax 50 mg at bedtime - CONSTRUCTION TRADES CONTRACTOR Trazodone 100 mg at bedtime # Asthma - CONSTRUCTION TRADES CONTRACTOR Breo Ellipta qday # Constipation - CONSTRUCTION TRADES CONTRACTOR Magnesium oxide 400 mg at bedtime - [...] Physician, Dr. Jamil . Airam Jay MD [facility] Securely message with AIRSIS (more info) Text page via [facility] Paging/Directory See signed in provider for up [...] worried about prognosis. 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 Symmetric 5/5 strength for bank appraiser strength and hip extension. Psych: Mood appropriate [...] the vertex were obtained without intravenous contrast. Fiber Glass Worker (topogram) image(s) also obtained and reviewed. FINDINGS: [...] Call MD - 01/20/2024 12:40 AM CDT [facility] History and Physical - [facility] Date of Admission: 01/19/2024 Assessment [...] hospital Initial post-stroke seizures noted 01/13 at [facility] and was given Keppra load with IV ativan to abort seizure. [facility] recommended starting Keppra 750 BID and follow up outpatient. She was admitted on 01/17/2024 to [facility] for acute inpatient rehabilitation. Rapid response called [...] seizures. - Neurology consult, appreciate recs - CONSTRUCTION TRADES CONTRACTOR Keppra 750 mg BID - If seizure [...] # Headaches, frontal Patient was seen by [facility] interventional neuroradiology for diagnostic catheter cerebral angiogram for left sided pulsatile tinnitus. 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, parietal lobes and left supramarginal gyrus, neurology believed embolic in nature, likely procedural complication. PT, OT, GEOMAGNETICIAN recommended therapies in a acute inpatient rehabilitation [...] appreciate recs - Consider hypercoagulation workup per [facility] while inpatient (factor V Leiden, factor IIgene mutation, Lupus anticoagulant, Cardiolipin antibody) Chronic/Stable # Insomnia Patient reports good relief with atarax for anxiety/insomnia in addition to her trazodone. Patient has been tolerating this regimen well during her hospital stay. Due to atarax's interaction leading to enhance HVAC TECHNICIAN RESIDENTIAL depressant effect. Willing to provide atarax once overnight and will reassess in the morning. - Atarax 50 mg once, day team to consider scheduling if needed - Trazodone 100 mg at bedtime # Asthma - CONSTRUCTION TRADES CONTRACTOR Breo Ellipta qday # Bowel: States current [...] Physician, Dr. Sheth . Kun Call MD [facility] Securely message with AIRSIS (Intellijoule info) Text page via [facility] Paging/Directory See signed in provider for up to date coverage information Chief Complaint Post-stroke seizures History is obtained from the patient History of Present Illness Alcon Zamora is a 48 year old female with past medical history of Lizy-Danlos syndrome, mild persistent asthma, anxiety and depression, fibromyalgia presented for a planned catheter angiogram at [facility] for left sided pulsatile tinnitus on 01/09/24, found to have multiple acute ischemic infarcts of the frontal lobes, parietal lobes and left supramarginal gyrus after procedure with associated right sided weakness and numbness, likely embolic in nature secondary to procedure complication, complicated by post-stroke seizures, admitted on 01/17/2024 at [facility] for acute inpatient rehabilitation complicated by rapid [...] exclude dural AVF. Patient was seen by [facility] interventional neuroradiology for diagnostic catheter cerebral angiogram [...] limiting. Patient recommended to be admitted to [facility] for neurology consult. During my encounter, patient mentions having an electric shock like sensation to her right chest which last about a few seconds and then goesaway. She also endorses frontal headaches. Otherwise she denies any chest pain, SOB, nausea, vomiting, abdominal pain, lower extremity swelling or tenderness. J2EE PROGRAMMER workup: -Ct head w/o: pending -CMP, CBC plt w/ diff, mg, phos, and prolactin: WNL -EKG: without acute ST changes Past Medical History Past Medical History: Diagnosis Date Acute posthemorrhagic anemia ASD (atrial septal defect) 02/07/2017 Attention deficit hyperactivity disorder (ADHD), predominantly inattentive type 02/07/2017 Broncho-pulmonary dysplasia (H28) Cervicalgia COPD (chronic obstructive pulmonary disease) (H) DDD (degenerative disc disease), cervical 02/07/2017 Depressive disorder 2002 Lizy-Danlos syndrome Excessive or frequent menstruation 01/31/06 [...] Past Surgical History: Procedure Laterality Date C INFORMATION SYSTEMS PLANNER PROCEDURE DATE: vag del. C INFORMATION SYSTEMS PLANNER PROCEDURE DATE: 2000 tubal ligation C INFORMATION SYSTEMS PLANNER PROCEDURE DATE: 1994 D&C CARDIAC SURGERY 06/2006 heart defect repair ESOPHAGOSCOPY, GASTROSCOPY, DUODENOSCOPY (EGD), COMBINED N/A 02/08/2021 Procedure: ESOPHAGOGASTRODUODENOSCOPY (EGD); Surgeon: Tuan Miller MD; Location: GI GI SURGERY 09/2020 gallbladder removed HC KNEE SCOPE,MED/LAT MENISECTOMY 08/04/13 LT HEART CATH, CLOSURE ATRIAL SEPTAL DEFECT 06/20/06 amplatzer septal occluder- serial #[id number] RW INFORMATION SYSTEMS PLANNER (ABSTRACTED) pneumonia several times SURGICAL PATHOLOGY EXAM 02/2012 excision of lipoma on chest wall ZZC VAGINAL HYSTERECTOMY 01/30/06 Prior to Admission Medications [...] 50 MCG/ACT nasal spray No No Sig: [place] 2 sprays into both nostrils daily traZODone [...] this encounter Consult Notes * Nisa Haines, LANE - 01/20/2024 3:54 PM CDTAssociated Order(s): CARE MANAGEMENT / SOCIAL WORK IP CONSULT Care Management Initial Consult General Information Assessment completed with: Patient Type of CM/SW Visit: Initial Assessment Primary Care Provider verified and updated as needed: Yes Readmission within the last 30 days: other (see comments) (Transfer from [facility]) Reason for Consult: discharge planning Advance Care Planning: other (see comments) (Patient was not interested in completing a HCD at thistime.) Communication Assessment Patient's communication style: spoken language (Mongolian or Bilingual) Hearing Difficulty or Deaf: no [...] Insecurity: No Food Insecurity (01/10/2023) Received from [facility] Hunger Vital Sign Worried About Running Out of Food in the Last Year: Never true Ran Out of Food in the Last Year: Never true Depression: At risk (01/10/2023) Received from [facility] PHQ-2 PHQ-2 Score: 3 Housing Stability: Low Risk (01/10/2023) Received from [facility] Housing Stability Vital Sign Unable to Pay for Housing in the Last Year: No Number of Places Lived in the Last Year: 1 Unstable Housing in the Last Year: No Tobacco Use: Low Risk (01/17/2024) Patient History Smoking Tobacco Use: Never Smokeless Tobacco Use: Never Passive Exposure: Not on file Financial Resource Strain: Low Risk (01/10/2023) Received from [facility] Overall Financial Resource Strain (CARDIA) Difficulty of Paying Living Expenses: Not hard at all Alcohol Use: Not At Risk (01/10/2023) Received from [facility] AUDIT-C Frequency of Alcohol Consumption: Monthly or less Average Number of Drinks: 1 or 2 Frequency of Binge Drinking: Never Transportation Needs: No Transportation Needs (01/10/2023) Received from [facility] PRAPARE - Transportation Lack of Transportation (Medical): No Lack of Transportation (Non-Medical): No Physical Activity: Sufficiently Active (01/10/2023) Received from [facility] Exercise Vital Sign Days of Exercise per Week: 5 days Minutes of Exercise per Session: 30 min Interpersonal Safety: Not At Risk (01/10/2023) Received from [facility] Humiliation, Afraid, Rape, and Kick questionnaire Fear of Current or Ex-Partner: No Emotionally Abused: No Physically Abused: No Sexually Abused: No Stress: Stress Concern Present (01/10/2023) Received from [facility] [employer] [place] [employer] Occupational [employer] - Occupational Stress Questionnaire Feeling of Stress : Rather much Social Connections: Socially Isolated (01/10/2023) Received from [facility], [facility] Social Connection and Isolation Panel [NHANES] Frequency of Communication with Friends and Family: Once a week Frequency of Social Gatherings with Friends and Family: Once a week Attends Sabianist Services: Never Active Member of Clubs or [...] No Current Concerns Values/Beliefs Spiritual, Cultural Beliefs, Sabianist Practices, Values that affect care: No Additional [...] assessment. Patient reports she was admitted to [facility] for a week and then transferred to ARU here at [place]. Patient was admitted to ARU on Saturday and then had a seizure and was hospitalized on 5MS last night. SW has already been in contact with [facility] rehab admissions. Per rehab nursing tech, she just got to [facility] on Saturday, [...] emailed/faxed back to patients employer which is [employer]. Will ask hospitalist to complete tomorrow. Care management continues to follow. Pending: [facility] [address] [place] [address] P: [phone] F: [phone] [address] Ol[place], CENTRAL SERVICE TECHNICIAN 5 Med Surg X Ray Nurse [facility] Pager: [phone] * Christiano Hooper MD - 01/20/2024 2:23 PM CDTAssociated Order(s): NEUROLOGY GENERAL ADULT IP CONSULT CC: spells HPI: Asked to see this 48 year old woman by medicine team for spells. Recent medical events documented in EMR noted. In brief, was recently at [facility] for interventional exploration of pulsatile tinnitus. She developed right arm weakness after procedure and found to have bihemispheric acute ischemicstrokes on MRI after her cerebral angiogram. She was seen by neurology at [facility] who provided recommendations for stroke follow up. [...] Q8H Kun Call MD 3 mL at [id number] sodium chloride (PF) 0.9% PF flush 3 [...] shows no seizures will need transfer to [place] for vEEG monitoring (to capture spell on vEEG) Agree with management of stroke as documented by [facility] neurology team. Please see their notes for details. She will need outpatient neurology follow up for stroke care and keppra management. Pending clinical course and EEG may be able to tapered off as an outpatient. She requests interventional interventional radiology follow up at [facility] (rather than [facility]) for further evaluation and management of AVF. [...] her life. She did not report a spiritual/zoroastrianism affiliation. Alcon shared that she finds it helpful to verbally process these events, as she makes sense of themand gives voice to her emotions. Plan: [facility] remains available by consult. Genet Batres M.Div. Community Service Representative Pager [phone] Reachable via AIRSIS SHS available 08/04 for emergent requests/referrals, either by paging the on-call junior automation engineer or by entering an FIFI/STAT consult in [facility], which will also page the on-call junior automation engineer. Assessment Saw pt Alcon A Noah per [...] thought she was being transferred away from [place].She reports some financial stressors, and her is back to work in [place] today. Strengths, Coping, and Resources - Alcon described herself as very resilient, which I affirmed. Diana affirmed her strong advocacy voice as she navigated her hospital admission and exercised her self-insight that something wasn't right. Her , daughters, and two granddaughters are primary supports, as well as her aunt, who works as a Neuro RN on the at [facility]. She shared that she is a fix it person, and is feeling better after getting dressed this morning and getting out of bed. Meaning, Beliefs, and Spirituality - Alcon did not identify a spiritual/zoroastrianism background. She reports that verbally processing was very helpful for her. [facility] remains available for continued support via consult. documented in this encounter Miscellaneous Notes * Plan of Care - Janna Elizondo, PT - 01/22/2024 2:19 PM CDT Physical Therapy Discharge Summary Reason for therapy discharge: Discharged to acute rehabilitation facility. Progress towards therapy goal(s). See goals on Care Plan in [facility] electronic health record for goal details. Goals partially met. Barriers to achieving goals: discharge from facility. Therapy recommendation(s): Continued therapy is recommended. Rationale/Recommendations: rec continued progression towards goals at ARU. * Plan of Care - Maryse Solis RN - 01/22/2024 1:40 PM CDT Goal Outcome Evaluation: Plan of Care Reviewed With: patient Overall Patient Progress: improving Outcome Evaluation: Pt is ambulating well and very excited to get back to the ARU to complete her rehab and get home. Pt experienced increased pain this am from a tight shoulder but after a massage and working with PTpt reports feeling really good. Pt likes that she has Tylenol scheduled so that she can try and stay ahead of the discomfort. Pt also has a Lidocaine patch on the back of her neck which has really helped as well. Pt has an order for Celebrex but because she hasn't taken it previously and feels that the Tylenol should be enough; Celebrex is still ordered if she changes her mind. VS: BP 136/76 (BP Location: Left arm) Pulse 85 Temp 97.8 ??F (36.6 ??C) (Oral) Resp 19 LMP 01/07/2006 SpO2 97% O2: Room Air Output: Continent Bowel & Bladder Last BM: 01/21/24 Activity: Independent w/ walker Up for meals? Sits up in chair - at 100% of lunch at 1245 Skin: Redness and elevation in L AC where PIV previously was; otherwise intact. Pain: 1/10 and pt would like to keep on schedule with the ordered medications to maintain low pain level CMS: A&O x 4; calm, cooperative, hopefull Dressing: None Diet: Regular; Thin Liquids LDA: None Plan: Pain management & build stamina w/ mobility Additional Info: * Interim Summary - Melvin Bolaños CM - 01/22/2024 8:15 AM CDT [facility] Pre-Admission Screen Referral Source: [facility] EEG Admit date to referring facility: 01/19/2024 Physical Medicine and Rehab Consult Completed: No Rehab Diagnosis: 01.2 Right body, left brain stroke, multiple acute ischemic infarcts in the frontal and parietal lobes, left supramarginal gyrus following angiogram Justification for Acute Inpatient Rehabilitation Alcon Zamora is a 48-year-old female PMH Lizy-Danlos syndrome, MONAE, MDD, asthma, fibromyalgia, history of ASD (repaired), and recent cerebral angiogram (01/08) complicated by multifocal stroke (01/12) and witness seizure admitted to [facility] 01/19/24 for seizure-like activity. Pt had admitted to [facility] on 01/16 from outside hospital to address ongoing impairments and medical management needs associated with recent cerebral infarct of the frontal lobes, parietal lobes, left supramarginal gyrus, embolic in nature. Stroke attributed to likely procedural complications from planned catheter angiogram at [facility] for left sided pulsatile tinnitus on 01/09/24. After the procedure, noted some incoordination of right arm, then patient had a severe headache, episode of emesis, new onset right arm weakness and numbness, was found to have multiple acute ischemic infarcts believed to beembolic in nature. MRI 01/12 with multifocal stroke. Per Neurology note 01/14, suspect clot formation due to catheter. On 01/19 J2EE PROGRAMMER was activated at [facility]. Patient was non-verbal, rapid eye movement, and repetitive grinding of teeth that was self limiting. It was witnessed by bedside ARU staff prompting code rapid response. Pt transferred to [facility] for further work up of her seizure like activity. Per Neuro, unclear etiology of seizures. Suspect related to recent stroke and anticipate to be self-limiting. Unlikely to be true seizures. Of note, pt also had witnessed seizure 01/13 at [facility]. Initiated on Keppra. Suspected acute related to recent stroke. MRI on 01/19 was negative for recurrent stroke. EEG completed 01/20 and was negative for seizure. Pt is now stable and ready to return to [facility] for ongoing rehab. Patient requires an intensive inpatient rehab program to address the following acute impairments:impaired activity tolerance, impaired balance, impaired cognition, impaired coordination, and impairedstrength. 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 Currently, she requires assist x1 for all mobility using a walker, Dania for transfers and is unable to navigate the number of stairs necessary to access her home environment. Furthermore, the pt has poor balance (placing her at increase risk for falls) as evident by her score of 4 out of 30 on the FGA. This test wascompleted on 01/21/24. Current Active Medical Management Needs/Risks for Clinical Complications The patient requires the high level of rehabilitation physician supervision that accompanies the provision of intensive rehabilitation therapy. The patient needs the services of the rehabilitation physician to assess the patient medically and functionally and to modify the course of treatment as needed to maximize the patient's capacity to benefit from the rehabilitation process. The patient requires physician oversight at least 3x/wk to medically manage and assess: Neurology: In setting of Seizure like activity and recent acute ischemic stroke. Witnessed seizure 01/13 [facility]. Initiated on Keppra. Suspected acute related to recent stroke. Seizure-like activity occurred 01/19 on inpatient acute rehab unit. MRI negative for recurrent stroke. EEG results were negative for seizure. 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 Continued R sided weakness and balance impairments. Continue ASA 325 mg daily. Goal normotensive BP. Continue Rosuvastatin 20 mg atbedtime; patient will discuss need for ongoing statin with outpatient provider. Continue to assess for neurologic recovery. Provide stroke education and risk factor reduction strategies. Pt is at risk for recurrent strokes and pain in setting of CVA. Per neurology on 01/21 the spell on ARC was not likely to be a seizure. She has full recollection of event, involving eye fluttering, confounding by hypertension, headache with migrainous features. She thinks she may have overworked herself as well and has a good plan with mental imagery to prevent another episode. AV fistula, left sigmoid dural and Pulsatile tinnitus: Patient developed pulsatile tinnitus. Cerebral angiogram 01/08 confirmed left sigmoid dural AV fistula. Planned to follow with [facility] Neurology for repair- but would like to transition cares to [facility]. [facility] Interventional Neuroradiology referral at [facility]. Will need ongoing assessment. Mental Health: In setting of Anxiety, depression, psychosocial stressors and insomnia. Reports understandable stress given recent events. Denied SI/HI. Coping admirably. 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 Health Psychology not available for inpatient consulation; would benefit from health psych consult on acute rehab. Continue CONSTRUCTION [employer]OR Atarax 50 mg at bedtime. CONSTRU[employer]OR Trazodone 100 mg at bedtime. Promote sleep hygiene. Will need ongoing assessment as pt at increased risk for worsening depression, exacerbation of anxiety and sleep disturbances. DVT prophylaxis: Given etiology of recent stroke suspected to be atypical clot formation, patient was initiated on Lovenox for DVT prophylaxis at ARU; continue lovenox daily. Will need ongoing assessment as at increased risk for recurrent clots. Past Medical/Surgical History Surgery in the past 100 days: No Additional relevant past medical history: Lizy-Danlos syndrome, MONAE, MDD, asthma, fibromyalgia, history of ASD (repaired; has Amplatz septal occluder device in place), and recent cerebral angiogram(01/08) complicated by multifocal stroke (01/12) Level of Functioning Prior to Admission: LIVING ENVIRONMENT People in Home: spouse, child(vipul), adult Current Living Arrangements: house Home Accessibility: stairs to enter home Number of Stairs, Main Entrance: 2 Stair Railings, Main Entrance: none Number of Stairs, Within Home, Primary: nine Stair Railings, Within Home, Primary: (1 railing for all sets of interior steps) Transportation Anticipated: other(Roll over to ARU) Living Environment Comments: Pt reports she lives in 4 level home kitchen, dining & living roomare on main level (no bathroom). 9 steps up to bedroom & bathroom with tub shower (deep tub). From main level, 9 steps down to level with pt's office & family room & bathroom (standard tub/shower). Laundry is an additional 9 steps down from office/family room level(family can assist with this task). Has 2 stairs to enter home from front of house. SELF-CARE Usual Activity Tolerance: good Regular Exercise: Yes Activity/Exercise Type: walking (treadmill) Exercise Amount/Frequency: daily, 30 mins Equipment Currently Used at Home: none Activity/Exercise/Self-Care Comment: Pt works from home as biomedical technician. Baseline IND with all mobility and ADLs/IADLs. Admitted from ARU and there pt had progressed to mod ind in room with walker, still needing SBA-CGA for ambulation in open environments. Additional Comments: n/a Level of Function: GG Scale (Section GG Functional Ability and Goals; CMS's HOOD Version 3.0 Manual effective 06.16.2019): PT Current Function Goals for Rehab Bed Rolling 6 Independent 6 Independent Supine to Sit 6 Independent 6 Independent Sit to Stand 3 Partial/moderate assistance 6 Independent Transfer 3 Partial/moderate assistance 6 Independent Ambulation 4 Supervision or touching assitance 6 Independent Stairs 4 Supervision or touching assitance 6 Independent OT Current Function Goals for Rehab Feeding 5 Setup or clean-up assistance 6 Independent Grooming 4 Supervision or touching assitance 6 Independent Bathing Not completed 6 Independent Upper Body Dressing 5 Setup or clean-up assistance 6 Independent Lower Body Dressing 4 Supervision or touching assitance 6 Independent Toileting 4 Supervision or touching assitance 6 Independent Toilet Transfer 4 Supervision or touching assitance 6 Independent Tub/Shower Transfer Not completed 6 Independent Cognition Not Assessed Independent GEOMAGNETICIAN Current Function Goals for Rehab Swallow Not Impaired Not applicable Communication Not Impaired Not applicable Current Diet: 0-Thin and 7-Regular Summary Statement: Jose Zamora is a 48 y/o female with recent strokes, hemiparesis with UE more involved than LE, balance deficits, and possible swallow deficits. The patient requires ongoing PT, OT and GEOMAGNETICIAN services. 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 Dania needed for transfers when fatigued without assistive device. Mild R sided weakness persists. Pt is able to ambulate short distances in her hospital room mod I with FWW, however relies heavily onB UE support on walker for balance; with no AD pt needs CGA for ambulation on flat surface without balance challenges. Pt has yet to attempt ambulation on uneven surfaces or those that vary in grade.Pt demonstrates impaired balance and gait with dual task or if balance challenges are present. She demonstrates LOB episodes when completing pivot turn/changing directions while ambulating over levelsurfaces. Pt scored 4/30 on FGA indicating significant balance impairment. Additionally, she will ne ed to navigate a significant number of stairs to return home. Currently, she is only able to navigate 4 stairs with Steven rails and CGA.Pt is continent of bowel and bladder; she is up to the bathroom with assist x1 from nursing. Grooming/hygiene tasks completed SBA standing at sink. Pt is able to complete dressing tasks with SBA and set up assist, however must be seated to do so given her poor standing balance. Expected Therapies and Services Required During Inpatient Rehab Admission Intensity of Therapy: Patient requires intensive therapies not available in a lesser level of care.Patient is motivated, making gains, and can tolerate 3 hours of therapy a day. Physical Therapy: 90 minutes per day, 6 days a week for 5 days Occupational Therapy: 90 minutes per day, 6 days a week for 5 days Speech and Language Therapy: 90 minutes per day, 6 days per week for 5 days Rehabilitation Nursing Needs: Patient requires 24 hour Rehab Nursing to manage vitals, medication education, positioning, carryover of new rehab techniques, care coordination, assess neurologic status, stroke education, and provide safe environment for patient at falls risk. Precautions/restrictions/special needs: Precautions: fall precautions and seizure precautions Restrictions: n/a Special Needs: none Expected Level of Improvement: Mod I with all basic mobility, transfers ADL's, IADL's and stairs. Expected Length of time to achieve: 5 days Anticipated Discharge Needs: Anticipated Discharge Destination: Home Anticipated Discharge Support: Family member(, Sandor) 08/04 support available : Unknown Identified caregiver(s): spouse Anticipated Discharge Needs: Home with outpatient therapy Identified challenges/barriers: Home has many stairs. Liaison signature/date/time: Physician statement of review and agreement: I have reviewed and am in agreement of the need for IRF stay to address above functional and medical needs. In addition to above statements address, Patient requires intensive active and ongoing therapeutic intervention and multiple therapies; Patient requires medical supervision; Expected to actively participate in the intensive rehab program; Sufficiently stable to actively participate; Expectation for measurable improvement in functional capacity or adaption to impairments. MD signature/date/time: * Plan of Care - Maryan Marcelo RN - 01/22/2024 1:23 AM CDT [id number] Pt. Is A & O X 4. Verbalized pain on PIV site. Lft PIV removed. Pt. Requested for a replacementto be delayed till she is awake in the AM. Ice pack applied to chronic neck pain & warm pack applied to left forearm (PIV site) on left arm. On seizure precaution with no episode this shift. Pt is ambulatory & continent. voided X2. No BM this shift. Possibility of being discharged t rehab later in the day today. Call button placed within reach. Plan of care is ongoing. * Plan of Care - Janice Tavares RN - 01/21/2024 10:04 PM CDT [id number] Pt is Aox4. Up SBA with walker to the bathroom. Denies SOB, chest pain, and n/v. No seizure activity. Call light within reach. No acute changes. Continue POC. * Plan of Care - Lilliana Yadav RN - 01/21/2024 6:56 PM CDT End of shift Summary: See flowsheet for VS and detail assessments. Changes this Shift: Pulmonary: WDL GI/: WDL Activity:independent in room with walker, needs SBA for longer activities. Tolerated a shower today. Worked with PT. Skin: intact. Pain: Mild headache pain still. Neuro/CMS: No changes. Continues to have brain fog and processing. Had EEG today which was normal. No seizure activity. Plan: Return to acute rehab unit potentially tomorrow. * Plan of Care - Stephanie Tobias [...] * Pharmacy-Admission Medication History - Speedy Flores RP - 01/20/2024 4:30 PM CDT Pharmacist Admission Medication History Admission medication history is complete. The information provided in this note is only as accurateas the sources available at the time of the update. Information Source(s): Facility ([facility] medication list/MAR via N/A Pertinent Information: Completed using MAR from [facility]. Changes made to [employer]OR medication list: Added: ASA 325mg daily Cetirizine 10mg daily Keppra 750mg BID MgOxide 200mg at bedtime Psyllium - 1 packet daily Rosuvastatin 20mg at bedtime Deleted: Cyclobenzaprine Flonase Changed: None Allergies reviewed with patient and updates made in EHR: no Medication History Completed By: Speedy Flores Joleen 01/20/2024 4:30 PM CONSTRUCTION [employer]ADES [employer]OR Med List Medication Sig Last Dose albuterol [...] Jay MD - 01/20/2024 3:32 PM CDT Gudelia ESPINOZA the following: Bethany Zamora534- Pt is requesting that language in chart stating she had previously denied MRI be changed as she states she never refused MRI. She verbalizes being upset with charting made. Lilliana RN [phone] Provider Addendum: Note was based on review of records from [facility]. Will update to reflect patient report. Airam Jay MD [facility], PGY-2 * Plan of Care - Lilliana [...] Tovar RN - 01/20/2024 2:51 AM CDT [id number] Goal Outcome Evaluation: Plan of Care Reviewed With: patient Overall Patient Progress: decliningOverall Patient Progress: declining Outcome Evaluation: Pt had seizure while in ARU Pt admitted to floor from ARU after J2EE PROGRAMMER was called for seizure-like activity. Pt is [...] RN) Title of person requesting team RN J2EE PROGRAMMER Arrival time 2101 Time J2EE PROGRAMMER ended 2229 Reason for call Type of J2EE PROGRAMMER Adult Primary reason for call Neurological Neurological Seizure;Other (describe) (concerns for seizure) Was patient transferred from the ED, ICU, or PACU within last 24 hours prior to J2EE PROGRAMMER call? No SBAR Situation Patient found to have rapid eye movement, increased headache with eye pain, and non verbal during seizure like episode Background HX of seizures and post infarcts Notable History/Conditions Seizures;Neurological Assessment Patient was talking when J2EE PROGRAMMER nurse arrived to scene. Patient a/o x4. Vitals stable with slight hypertension. Shortly after arrival, patient began to have rapid eye movement and patient wasunable to verbalize during episode. Interventions Labs;Other (describe) (IV placed and CT ordered) Adjustments to Recommend Transfer to medical unit for tele and IMC status. Patient Outcome Patient Outcome Transferred to (transferred to med surg/ medical for tele and IMC) J2EE PROGRAMMER Team Attending/Primary/Covering Physician Randy Kwon, MONICA Date Attending Physician notified 01/19/24 Time Attending Physician notified 2056 Physician(s) Chacho Kwon and hospitalist. Lead RN Escobar Samson RN RN Azra RN and Matt RN RT na Other staff NST Post J2EE PROGRAMMER Intervention Assessment Post J2EE PROGRAMMER Assessment Stable/Improved (and transferred to [facility]) documented in this encounter Plan of Treatment Upcoming Encounters Date Type Department Care Team (Late st Contact Info) Description 02/03/2024 8:45 AM CDT Therapy Visit [address] [phone] Denise Woodson Ra, HEALTHCARE ECONOMICS MANAGER [employer] IN HOUSEKEEPER NANNY [address] [place], [place] [phone] Addis Rojas, PT [facility] [address] [place] [address] 02/04/2024 PRE VISIT [facility] [address] [phone] Raul Hoyos MD [address] [place] [phone] *-*INCOMING RECORDS*-* 02/04/2024 11:00 AM CDT Virtual Visit [facility] [address] [phone] Raul Hoyos MD [address] [place] [phone] 02/06/2024 8:30 AM CDT Office Visit [facility] [address] [place] [phone] Denise Woodson Ra, HEALTHCARE ECONOMICS MANAGER LIVE IN HOUSEKEEPER NANNY [address] [place] [address] 02/07/2024 2:00 PM CDT Therapy Visit [address] [phone] Danya You PA [address] [place] [address] Charis Chacon SLP [facility] [address] [place] [address] 02/14/2024 12:45 PM CDT Therapy Visit [address] [phone] Danya You, AMAIRANI [address] [place] [address] Isabel Beaulieu, OTR [address] [address] 02/14/2024 2:00 PM CDT Therapy Visit [address] [phone] Danya You, PA [address] [address] Charis Chacon, [facility] [address] [place], [place] [address] 02/14/2024 2:45 PM CDT Therapy Visit [address] [phone] Danya You, AMAIRANI [address] [place] [address] Maria Eugenia Nguyen, PT [address] [place] [address] 02/17/2024 2:45 PM CDT Therapy Visit [facility] [address] [place] [phone] Danya You, PA [address] [place] [address] Aliya Kim, GEOMAGNETICIAN [address] [facility], [address] [place], [place] [address] 02/19/2024 3:00 PM CDT Therapy Visit [facility] [address] [place] [phone] Danya You, AMAIRANI [address] [place] [address] Isabel Beaulieu, OTR [address] [address] 02/26/2024 2:15 PM CDT Therapy Visit [facility] [address] [place] [phone] Danya You, PA [address] [place] [address] Charis Chacon, [facility] [address] [place] [address] 02/26/2024 3:00 PM CDT Therapy Visit [facility] [address] [place] [phone] Danya You, AMAIRANI [address] [address] Isabel Beaulieu, OTR [facility] [address] [place] [address] 02/27/2024 4:45 PM CDT Therapy Visit [facility] [address] [place] [phone] Danya You PA [address] [address] Vanessa Duggan, PT 03/05/2024 1:30 PM CDT Therapy Visit [address] [phone] Danya You PA [address] [address] Isabel Beaulieu, OTR [facility] [address] [place] [address] 03/05/2024 3:15 PM CDT Therapy Visit [address] [phone] Danya You, AMAIRANI [address] [address] Charis Chacon, [facility] [address] [place] [address] 03/05/2024 4:15 PM CDT Therapy Visit [facility] [address] [place] [phone] Danya You PA [address] [address] Deilcia George, PT [address] [address] 03/11/2024 2:15 PM CDT Therapy Visit [address] [phone] Danya You, PA [address] [address] Isabel Beaulieu, OTR [address] [address] 03/11/2024 3:00 PM CDT Therapy Visit [address] [phone] Danya You, PA [address] [address] Charis Chacon, J[facility]AN [facility] [address] [place] [address] 03/11/2024 4:15 PM CDT Therapy Visit [address] [phone] Danya You, PA [address] [address] Delicia George, PT [address] [address] 03/17/2024 1:30 PM CDT Therapy Visit [address] [phone] Danya You PA [address] [address] Isabel Beaulieu, OTR [address] [address] 03/17/2024 2:30 PM CDT Therapy Visit [address] [phone] Danya You, AMAIRANI [address] [address] Charis Chacon, [facility] [address] [place] [address] 03/17/2024 4:00 PM CDT Therapy Visit [address] [phone] Danya You, PA [address] [place] [address] Delicia George, PT [facility] [address] [address] 03/23/2024 10:30 AM CDT Office Visit [facility] [address] [place] [address] Denise Woodson Ra, HEALTHCARE ECONOMICS MANAGER [facility] [address] [place], [place] [phone] 03/26/2024 1:30 PM CDT [facility] [address] [facility] [place] [phone] Danya You PA [address] [place] [address] Isabel Beaulieu, OTR [facility] [address] [place] [address] 03/26/2024 2:30 PM CDT Therapy Visit [facility] [address] [place] [phone] Danya You, AMAIRANI [address] [address] Charis Chacon, [facility] [address] [place] [address] 03/26/2024 3:30 PM CDT [facility] [facility] [address] [place] [phone] Danya You, AMAIRANI [facility] [place] [address] [address] Delicia George, PT [facility] [address] [place] [place] [address] 04/02/2024 2:15 PM CDT Therapy Visit [facility] [address] [place] [phone] Danya You PA [facility] [place] [address] [address] Isabel Beaulieu, OTR [facility] [address] [place] [address] 04/02/2024 3:15 PM CDT Therapy Visit [address] [phone] Danya You PA [address] [place] [address] Charis Chacon, JUAN [facility] [address] [place] [address] 04/02/2024 4:15 PM CDT Therapy Visit [address] [phone] Danya You, AMAIRANI [address] [place] [address] Delicia George, PT [facility] [address] [place] [address] 04/09/2024 3:15 PM CDT Therapy Visit [address] [phone] Danya You, PA [address] [place] [address] Charis Chacon, JUAN [facility] [address] [place] [address] 04/09/2024 4:15 PM CDT Therapy Visit [address] [phone] Danya You PA [address] [place] [address] Delicia George, PT [facility] [address] [place] [address] 04/15/2024 9:30 AM CDT Therapy Visit [address] [phone] Danya You, PA [facility] [address] [address] Danya Restrepo, GEOMAGNETICIAN 04/23/2024 2:30 PM CDT Therapy Visit [address] [phone] Danya You, PA [address] [place], [place] [address]Analy [address] [address] Charis Chacon, JUAN [facility] [address] [place] [address] 06/23/2024 11:00 AM CDT Virtual Visit [facility] [address] [phone] Kristin Vázquez, [facility] [address] [place] [address] 06/30/2024 2:00 PM CDT Virtual Visit [facility] [id number] [place] [address] Kristin Vázquez, [facility] [address] [place] [address] Scheduled Referrals Name Type Priority Associated Diagnoses Orde r Schedule Adult Neurology Siding Stapler Referral Referral Routine: Next available opening Seizure-like activity (H) History of seizure Cerebrovascular accident (CVA), unspecified mechanism (H) Expected: 01/22/2024 (Approximate), Expires: 01/21/2025 documented as of this encounter Procedures Procedure Name Priority Date/Time Associated Diagnosis Comments LUPUS ANTICOAGULANT PANEL Routine 01/21/2024 1:20 PM CDT FACTOR 2 ASSAY Routine 01/21/2024 1:20 PM CDT EEG VIDEO 2-12 HRS UNMONITORED Routine 01/21/2024 12:15 PM CDT CBC WITH PLATELETS AND DIFFERENTIAL Routine 01/21/2024 5:51 AM CDT CARDIOLIPIN DESIRE IGG AND IGM Add-On 01/21/2024 5:51 AM CDT CBC WITH PLATELETS & DIFFERENTIAL Routine 01/21/2024 5:51 AM CDT BASIC METABOLIC PANEL Routine 01/21/2024 5:51 AM CDT MRA NECK (CAROTIDS) W/O & W CONTRAST STAT 01/20/2024 6:54 PM CDT MR BRAIN W/O & W CONTRAST STAT 01/20/2024 6:53 PM CDT MRA BRAIN ([place]) W/O CONTRAST STAT 01/20/2024 6:50 [...] CDT documented in this encounter Results * Lupus Anticoagulant Panel (01/21/2024 1:20 [...] of an antiphospholipid syndrome, recommend anticardiolipin and ghjq-4-nqacivdacqy n (IgG and IgM) antibody tests. Mikayla Cooper MD, PhD [facility] 2:25 PM CDT [facility] SPECIAL COAGULATION Blood STRUCTURE OF RIGHT HAND / Unknown Venipuncture / Unknown 01/21/2024 1:20 PM CDT 01/21/2024 1:26 PM CDT Airam Jay MD LAB - BLOOD ORDERABL ES [facility] SPECIAL COAGULATION [facility] Special Coagulation [address] [facility], [address] [phone] * Factor 2 assay (01/21/2024 1:20 PM CDT) Factor 2 Assay 131 60 - 140 % 01/22/2024 9:53 AM CDT SPECIAL COAGULATION Comment: The Factor 2 activity level is not a screening test for the Prothrombin [id number] mutation. Blood STRUCTURE OF RIGHT HAND / Unknown Venipuncture / Unknown 01/21/2024 1:20 PM CDT 01/21/2024 1:26 PM CDT Airam Jay MD LAB - BLOOD ORDERABL ES SPECIAL COAGULATION UM Special Coagulation [address] [facility], [address] [phone] * EEG Video 2-12 HRS [facility] (01/21/2024 12:15 PM CDT) Narrative [facility] - 01/21/2024 3:06 PM CDT EEG Video 2-12 HRS [facility] Result VIDEO EEG DATE: 01/21/2024 VIDEO EEG [id number] VIDEO EEG DAY#: 1 VIDEO EEG SOURCE [...] Jay MD IMG EEG ORDERABLES [facility] * Cardiolipin Desire IgG and IgM (01/21/2024 5:51 AM CDT) Cardiolipin Desire IgG Instrument Value <2.0 <10.0 GPL-U/mL 01/22/2024 12:03 PM CDT SPECIALTY CORE/PROT/END O Cardiolipin Antibody IgG Negative Negative 01/22/2024 12:03 PM CDT SPECIALTY CORE/PROT/END O Cardiolipin Desire IgM Instrument Value <2.0 <10.0 MPL-U/mL 01/22/2024 12:03 PM CDT SPECIALTY CORE/PROT/END O Cardiolipin Antibody IgM Negative Negative 01/22/2024 12:03 PM CDT SPECIALTY CORE/PROT/END O Blood STRUCTURE OF RIGHT HAND / Unknown Venipuncture / Unknown 01/21/2024 5:51 AM CDT 01/21/2024 6:22 AM CDT Airam Jay MD LAB - BLOOD ORDERABL ES SPECIALTY CORE/PROT/ENDO Specialty Core/Prot/Endo [address] [facility] Building, Room [address] * CBC with platelets and differential (01/21/2024 5:51 AM CDT) WBC Count 8.6 4.0 - 11.0 10e3/uL [...] LAB - BLOOD ORDERABL ES UR LABORATORY [facility] [address] [facility], [address] [place] [address] * Basic metabolic panel (01/21/2024 5:51 AM CDT) Sodium 139 135 - 145 mmol/L 01/21/2024 [...] LAB - BLOOD ORDERABL ES UR LABORATORY [facility] [address] [facility], [address] [place] [address] * MRA Neck (Carotids) wo & [...] findings. ANA LATHAM MD Airam Jay MD G MRI ORDERABLES * MR Brain w/o & [...] MD IM MRI ORDERABLES * MRA Brain ([place]) wo Contrast (01/20/2024 6:50 PM CDT) Anatomical Region Laterality Modality Head, SUBRAD MR NEURO, UMP MR NEURO, RAD MR Magnetic Resonance Impressions 01/20/2024 7:49 PM CDT IMPRESSION: No intracranial arterial aneurysm or stenosis. I have personally reviewed the examination and initial interpretation and I agree with the findings. 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 Outside CTA report for 01/09/2024 obtained through [facility]. 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 Outside CTA report for 01/09/2024 obtained through [facility]. TECHNIQUE: Using a 3D ckpk-ua-fdrlqv image acquisition technique, MRA of the major [...] Airam Jay MD IM MRI ORDERABLES * CBC with platelets and [...] LAB - BLOOD ORDERABL ES UR LABORATORY [facility] [address] [facility], [address] [place] [address] * Basic metabolic panel (01/20/2024 6:29 AM [...] LAB - BLOOD ORDERABL ES UR LABORATORY [facility], Room [address] * Lactic acid whole blood (01/19/2024 11:55 PM CDT) Lactic Acid 1.1 0.7 - 2.0 mmol/L 01/20/2024 12:03 AM CDT UR LABORATORY Blood STRUCTURE OF RIGHT UPPER LIMB / Unknown Venipuncture / Unknown 01/19/2024 11:55 PM CDT 01/20/2024 12:01 AM CDT Len Camejo DO LAB - BLOOD ORDERABLES Performing Organization Address City/[facility]/ZIP Co de Phone Number UR LABORATORY [facility] [address] [place] [address], [address] * Basic metabolic panel (01/19/2024 11:55 [...] LAB - BLOOD ORDERABLES Performing Organization Address City/State/[facility] Co de Phone Number UR LABORATORY [facility] [address] [facility], [address] [place] [address] * Troponin T, High Sensitivity (01/19/2024 11:55 PM CDT) Pathologist [facility] Troponin T, High Sensitivity <6 <=14 ng/L [...] DO LAB - BLOOD ORDERABLES UR LABORATORY [facility] [address] [facility], Room [address] [phone] * Extra Purple Top Tube (01/19/2024 11:54 PM CDT) Hold Specimen JIC 01/20/2024 1:04 AM CDT UR LABORATORY Blood BLOOD SPECIMEN / Unknown Venipuncture / Unknown 01/19/2024 11:54 PM CDT 01/20/2024 12:03 AM CDT Luis Reynolds DO LAB - BLOOD ORDERABL ES UR LABORATORY [facility] [address] [facility], Room [address] [phone] documented in this encounter Visit Diagnoses Diagnosis Seizure-like activity (H)- Primary Other convulsions Fibromyalgia Mylagia and myositis, unspecified Pain of right upper extremity Nausea Nausea alone Other constipation Generalized anxiety disorder History of stroke Transient ischemic attack (TIA), and cerebral infarction without residual deficits Seizure-like activity (H) Other convulsions History of seizure Cerebrovascular accident (CVA), unspecified mechanism (H) Dural arteriovenous fistula Cerebral aneurysm, nonruptured History of seizure History of stroke Transient ischemic attack (TIA), and cerebral infarction without residual deficits Pain of right upper extremity Fibromyalgia Mylagia and myositis, unspecified Dural arteriovenous fistula Cerebral aneurysm, nonruptured documented in this encounter Administered Medications Inactive Administered Medications - up to 3 most recent administrations Medication Order MAR Action Action Date Dose Rate Site acetaminophen (TYLENOL) Suppository 650 mg 650 mg, Rectal, 3 TIMES DAILY, First dose (after last modification) on Sat01/22/24 at 1400, Alternate with ibuprofen if ordered. Maximum acetaminophen [...] mg/kg/day not to exceed 4 grams/day. $Given 01/22/2024 6:04 AM CDT 650 mg $Given 01/22/2024 12:55 AM CDT 650 mg $Given 01/21/2024 7:01 PM CDT 650 mg acetaminophen (TYLENOL) tablet 975 mg 975 mg, Oral, 3 TIMES DAILY, First dose (after last modification) on Sat01/22/24 at 1400, Alternate with ibuprofen if ordered. Maximum acetaminophen dose from all sources = 75 mg/kg/day not to exceed 4 grams/day. $Given 01/22/2024 1:03 PM CDT 97 5 mg aspirin (ASA) tablet 325 mg 325 mg, Oral, DAILY, First dose on Sat01/20/24 at 0800 $Given 01/22/2024 8:34 AM CDT 325 mg $Given 01/21/2024 8:17 AM CDT 325 mg $Given 01/20/2024 8:01 AM CDT 325 mg calcium carbonate (TUMS) chewable tablet 1,000 mg 1,000 mg, Oral, 4 TIMES DAILY PRN, heartburn, Starting on Sat01/20/24 at 0011 celecoxib (celeBREX) capsule 100 mg 100 mg, Oral, 2 TIMES DAILY, First dose (after last modification) on Sat01/22/24 at 1200 diclofenac (VOLTAREN) 1 % topical gel 2 g 2 g, Topical, 4 TIMES DAILY PRN, inflammatory pain, Starting on Sat01/22/24 at 1032, Apply to right shoulder and neck. Use supplied dosing card to mearsure dose. enoxaparin ANTICOAGULANT (LOVENOX) injection 40 mg 40 mg, Subcutaneous, EVERY 24 HOURS, First dose on Sat01/20/24 at 0800 $Given 01/20/2024 8:01 AM CDT 40 mg enoxaparin ANTICOAGULANT (LOVENOX) injection 40 mg 40 mg, Subcutaneous, EVERY 24 HOURS, First dose on Sat01/22/24 at 1800 fluticasone-vilanterol (BREO ELLIPTA) 200-25 MCG/ACT inhaler 1 puff 1 puff, Inhalation, DAILY, First dose on Sat01/20/24 at 0800, *Do not use more frequently than once daily.* Rinse mouth after use. Check the dose counter on the inhaler to ensure there are doses remaining before administering. gadobutrol (GADAVIST) injection 9.6 mL 9.6 mL, Intravenous, ONCE, On Sat01/20/24 at 1830, For 1 dose, Supplied by, and administered by MRI. $Given 01/20/2024 6:20 PM CDT 9.6 mLs hydrOXYzine HCl (ATARAX) tablet 50 mg 50 mg, Oral, ONCE, On Sat01/20/24 at 0100, For 1 dose $Given 01/20/2024 1:03 AM CDT 50 mg hydrOXYzine HCl (ATARAX) tablet 50 mg 50 mg, Oral, AT BEDTIME, First dose on Sat01/20/24 at 2200 $Given 01/21/2024 9:09 PM CDT 50 mg $Given 01/20/2024 9:02 PM CDT 50 mg levETIRAcetam (KEPPRA) tablet 750 mg 750 mg, Oral, 2 TIMES DAILY, First dose on Sat01/20/24 at 0800 $Given 01/22/2024 8:34 AM CDT 750 mg $Given 01/21/2024 8:10 PM CDT 750 mg $Given 01/21/2024 8:17 AM CDT 750 mg Lidocaine (LIDOCARE) 4 % Patch 1 patch 1 patch, Transdermal, EVERY 24 HOURS 0800, Administer over 12 Hours, First dose on Sat01/22/24 at 1100, Apply patch(s) to posterior neck. To prevent lidocaine toxicity, patient should be [...] for 96 hours post injection. $Patch/Med Applied 01/22/2024 11:51 AM CDT 1 patch Right Upper Back lidocaine (LMX4) cream Topical, EVERY 1 HOUR [...] Sat01/20/24 at 0100, Substituted per formulary for [employer] chelated magnesium $Given 01/21/2024 9:09 PM CDT 200 mg $Given 01/20/2024 9:02 PM CDT 200 mg $Given 01/20/2024 1:03 AM CDT 200 mg melatonin tablet 5 mg 5 mg, Oral, AT BEDTIME PRN, sleep, Starting on Sat01/20/24 at 0020, Do not give unless at least 6 hours of uninterrupted sleep is expected. If patient has multiple medications ordered PRN sleep/insomnia, offer melatonin first. methyl salicylate-menthol (ICY HOT) ointment Topical, EVERY 6 HOURS PRN, other, pain, Starting on Sat01/22/24 at 1032, Apply to neck/shoulder at site of pain Contains menthol 7.6% & methyl salicylate 29% naloxone (NARCAN) injection 0.2 mg 0.2 mg, Intravenous, EVERY 2 MIN PRN, opioid reversal, Starting on Sat01/22/24 at 1041, Administer intravenous route when available and notify provider when administered. For unintended sedation or respiratory depression if all of the below criteria are met: ~ respiratory rate LESS than or EQUAL to 8. ~SaO2 less than 92% and or/end-tidal CO2 is greater than 50. ~ the patient is receiving an opioid, has unintended sedations assessed as RASS (-3), and is currently not on mechanical ventilation. RASS scale moderate (-3) is movement or eye opening to voice but no eye contact. Patient Monitoring Once the patient has demonstrated a response to the naloxone, continue to monitor respiratory rate, depth, oxygen saturation and end-tidal CO2 (if available) every 15 minutes x 2, then every 30 minutes x 2, then every 1 hour x 1 after each naloxone dose. Consider transfer to ICU if patient respiratory parameters have not improved after 4 naloxone doses. naloxone (NARCAN) injection 0.2 mg 0.2 mg, Intramuscular, EVERY 2 MIN PRN, opioid reversal, Starting on Sat01/22/24 at 1041, Administer intramuscular if an intravenous route is not available and notify provider when administered. For unintended sedation or respiratory depression if all of the below criteria are met: ~ respiratory rate LESS than or EQUAL to 8. ~SaO2 less than 92% and or/end-tidal CO2 is greater than 50. ~ the patient is receiving an opioid, has unintended sedations assessed as RASS (-3), and is currently not on mechanical ventilation. RASS scale moderate (-3) is movement or eye opening to voice but no eye contact. Patient Monitoring Once the patient has demonstrated a response to the naloxone, continue to monitor respiratory rate, depth, oxygen saturation and end-tidal CO2 (if available) every 15 minutes x 2, then every 30 minutes x 2, then every 1 hour x 1 after each naloxone dose. Consider transfer to ICU if patient respiratory parameters have not improved after 4 naloxone doses. naloxone (NARCAN) injection 0.4 mg 0.4 mg, Intravenous, EVERY 2 MIN PRN, opioid reversal, Starting on Sat01/22/24 at 1041, Administer intravenous route when available and notify provider when administered. For unintended sedation or respiratory depression if all of the below criteria are met: ~ respiratory rate LESS than or EQUAL to 8. ~ SaO2 less than 92% and or/end-tidal CO2 is greater than 50. ~ the patient is receiving an opioid, has unintended sedation assessed as RASS (-4) or (-5) and [...] have not improved after 4 naloxone doses. naloxone (NARCAN) injection 0.4 mg 0.4 mg, Intramuscular, EVERY 2 MIN PRN, opioid reversal, Starting on Sat01/22/24 at 1041, Administer intramuscular if an intravenous route is not available and notify provider when administered. For unintended sedation or respiratory depression if all of the below criteria are met: ~ respiratory rate LESS than or EQUAL to 8. ~ SaO2 less than 92% and or/end-tidal CO2 is greater than 50. ~ the patient is receiving an opioid, has unintended sedation assessed as RASS (-4) or (-5) and [...] have not improved after 4 naloxone doses. ondansetron (ZOFRAN ODT) ODT tab 4 mg [...] go to Step 2 prochlorperazine (COMPAZINE). Irritant. oxyCODONE (ROXICODONE) tablet 5 mg 5 mg, Oral, EVERY 6 HOURS PRN, severe pain, If pain not controlled with other pain modalities, Starting on Sat01/22/24 at 1035, PRN med order 1. Scheduled acetaminophen and celecoxib 2. PRN lidocaine patch and topical diclofenac 3. PRN oxycodone prochlorperazine (COMPAZINE) injection 10 mg 10 mg, [...] First dose on Sat01/20/24 at 0130 $Given 01/21/2024 9:09 PM CDT 20 mg $Given 01/20/2024 9:02 PM CDT 20 mg [...] lock peripheral IV dormant line $Given 01/21/2024 11:55 PM CDT 3 mLs $Given 01/21/2024 7:01 PM CDT 3 mLs $Given 01/21/2024 8:17 AM CDT 3 mLs sodium chloride (PF) 0.9% PF flush 3 mL 3 mL, Intracatheter, EVERY 1 MIN PRN, line flush, other, to ensure patency or to lock dormant line, Starting on Sat01/20/24 at 0011 $Given 01/20/2024 9:04 PM CDT 3 mLs traZODone (DESYREL) tablet 100 mg 100 mg, Oral, AT BEDTIME, First dose on Sat01/20/24 at 0100 $Given 01/21/2024 9:09 PM CDT 100 mg $Given 01/20/2024 9:02 PM CDT 100 mg $Given 01/20/2024 1:03 AM CDT 100 mg documented in this encounter Active and Recently Administered Medications Times are shown in CDT. Scheduled Medication Order 01/20/2024 01/21/2024 01/22/2024 acetaminophen (TYLENOL) Suppository 650 mg(Linked Group 1) 650 mg, Rectal, 3 TIMES DAILY, First dose (after last modification) on Sat01/22/24 at 1400, Alternate with ibuprofen if ordered. Maximum acetaminophen dose from all sources = 75 mg/kg/day not to exceed 4 grams/day. 1303 (See Alternativ e - Provider: Maryse Solis RN) acetaminophen (TYLENOL) tablet 975 mg(Linked Group 1) 975 mg, Oral, 3 TIMES DAILY, First dose (after last modification) on Sat01/22/24 at 1400, Alternate with ibuprofen if ordered. Maximum acetaminophen dose from all sources = 75 mg/kg/day not to exceed 4 grams/day. 1303 ($Given - Provider: Maryse Solis RN) aspirin (ASA) tablet 325 mg 325 mg, Oral, DAILY, First dose on Sat01/20/24 at 0800 0801 ($Given - Provider: Lilliana Yadav RN) 0817 ($Given - Provider: Lilliana Yadav RN) 0834 ($Given - Provider: Maryse Solis RN) celecoxib (celeBREX) capsule 100 mg 100 mg, Oral, 2 TIMES DAILY, First dose (after last modification) on Sat01/22/24 at 1200 1307 (Not Given - Provider: Maryse Solis RN - Reason: Patient/family refused) enoxaparin ANTICOAGULANT (LOVENOX) injection 40 mg (CANCELED) 40 mg, Subcutaneous, EVERY 24 HOURS, First dose on Sat01/20/24 at 0800 0801 ($Given - Provider: Lilliana Yadav RN) enoxaparin ANTICOAGULANT (LOVENOX) injection 40 mg 40 mg, Subcutaneous, EVERY 24 HOURS, First dose on Sat01/22/24 at 1800 fluticasone-vilanterol (BREO ELLIPTA) 200-25 MCG/ACT inhaler 1 [...] Yadav RN - Reason: Medication not available) 0848 (Not Given - Provider: Maryse Solis RN - Reason: Patient/family refused) gadobutrol (GADAVIST) injection 9.6 mL (COMPLETED) 9.6 [...] BEDTIME, First dose on Sat01/20/24 at 2200 2102 ($Given - Provider: Stephanie Tobias RN) 2109 ($Given - Provider: Janice Tavares RN) levETIRAcetam (KEPPRA) tablet 750 mg 750 mg, Oral, 2 TIMES DAILY, First dose on Sat01/20/24 at 0800 0801 ($Given - Provider: Lilliana Yadav RN)2005 ($Given - Provider: Stephanie Tobias RN) 0817 ($Given - Provider: Lilliana Yadav RN)2009 ($Given - Provider: Janice Tavares, GEMA) 0834 ($Given - Provider: Maryse Solis RN) Lidocaine (LIDOCARE) 4 % Patch 1 patch 1 patch, Transdermal, EVERY 24 HOURS 0800, Administer over 12 Hours, First dose on Sat01/22/24 at 1100, Apply patch(s) to posterior neck. To prevent lidocaine toxicity, patient should be patch free for 12 hrs daily. Patches may be cut to smaller size prior to removing release liner. Reminder: Remove previous patch before applying new patch. NEVER APPLY HEAT OVER PATCH which increases absorption and may lead to local anesthetic toxicity. Do not apply over area where liposomal bupivacaine was injected for 96 hours post injection. 1151 ($Patch/Med Applied - Provider: Maryse Solis RN)1419 (Due: Patch/Med Removed - Provider: Orders Generic Provider - Comment: Time automatically adjusted from order being discontinued) magnesium oxide (MAG-OX) half-tab 200 mg 200 mg, Oral, AT BEDTIME, First dose on Sat01/20/24 at 0100, Substituted per formulary for [employer] chelated magnesium 0103 ($Given - Provider: Rocio Tovar RN)2101 ($Given - Provider: Stephanie Tobias RN) 2108 ($Given - Provider: Janice Tavares, GEMA) rosuvastatin (CRESTOR) tablet 20 mg 20 mg, Oral, AT BEDTIME, First dose on Sat01/20/24 at 0130 0116 ($Given - Provider: Rocio Tovar RN)2101 ($Given - Provider: Stephanie Tobias RN) 2108 ($Given - Provider: Janice Tavares RN) sodium chloride (PF) 0.9% PF flush 3 mL 3 mL, Intracatheter, EVERY 8 HOURS, First dose on Sat01/20/24 at 0030, to lock peripheral IV dormant line 0105 ($Given - Provider: Rocio Tovar RN)0801 ($Given - Provider: Lilliana Yaadv RN)1902 (Not Given - Provider: Chrissy Hunter RN - Reason: Patient not available) 0003 (Not Given - Provider: Stephanie Tobias RN - Reason: Patient sleeping)0817 ($Given - Provider: Lilliana Yadav RN)1901 ($Given - Provider: Lilliana Yadav RN)2355 ($Given - Provider: Maryan Marcelo RN) 0849 (Not Given - Provider: Maryse Solis RN - Reason: No IV Access) traZODone (DESYREL) tablet 100 mg 100 mg, Oral, AT BEDTIME, First dose on Sat01/20/24 at 0100 0103 ($Given - Provider: Rocio Tovar RN)2101 ($Given - Provider: Stephanie Tobias RN) 2108 ($Given - Provider: Janice Tavares RN) PRN Medication Order 01/20/2024 01/21/2024 01/22/2024 acetaminophen (TYLENOL) tablet 650 mg (CANCELED) 650 mg, Oral, EVERY 4 HOURS PRN, mild pain, other, and adjunct with moderate or severe pain or per patient request, Starting on Sat01/20/24 at 0021, Alternate with ibuprofen if ordered. Maximum acetaminophen dose from all sources = 75 mg/kg/day not to exceed 4 grams/day. 0103 ($Given - Provider: Rocio Tovar, RN)0809 ($Given - Provider: Lilliana Yadav, RN)1314 ($Given - Provider: Lilliana Yadav, RN)1920 ($Given - Provider: Chrissy Hunter RN) 0614 ($Given - Provider: Stephanie Tobias, GEMA)1901 ($Given - Provider: Lilliana Yadav RN) 0055 ($Given - Provider: Maryan Marcelo, GEMA)0604 ($Given - Provider: Maryan Marcelo RN)0847 (Not Given - Provider: Maryse Solis RN - Reason: Other - Comment: Tylenol given at 0600 - can't take until 1000) albuterol (PROVENTIL HFA/VENTOLIN HFA) inhaler 2 puff, [...] PRN, heartburn, Starting on Sat01/20/24 at 0011 diclofenac (VOLTAREN) 1 % topical gel 2 g 2 g, Topical, 4 TIMES DAILY PRN, inflammatory pain, Starting on Sat01/22/24 at 1032, Apply to right shoulder and neck. [facility]. lidocaine (LMX4) cream Topical, EVERY 1 HOUR [...] medications ordered PRN sleep/insomnia, offer melatonin first. methyl salicylate-menthol (ICY HOT) ointment Topical, EVERY 6 HOURS PRN, other, pain, Starting on Sat01/22/24 at 1032, Apply to neck/shoulder at site of pain Contains menthol 7.6% & methyl salicylate 29% naloxone (NARCAN) injection 0.2 mg(Linked Group 2) 0.2 mg, Intravenous, EVERY 2 MIN PRN, opioid reversal, Starting on Sat01/22/24 at 1041, Administer intravenous route when available and notify provider when administered. For unintended sedation or respiratory depression if all of the below criteria are met: ~ respiratory rate LESS than or EQUAL to 8. ~SaO2 less than 92% and or/end-tidal CO2 is greater than 50. ~ the patient is receiving an opioid, has unintended sedations assessed as RASS (-3), and is currently not on mechanical ventilation. RASS scale moderate (-3) is movement or eye opening to voice but no eye contact. Patient Monitoring Once the patient has demonstrated a response to the naloxone, continue to monitor respiratory rate, depth, oxygen saturation and end-tidal CO2 (if available) every 15 minutes x 2, then every 30 minutes x 2, then every 1 hour x 1 after each naloxone dose. Consider transfer to ICU if patient respiratory parameters have not improved after 4 naloxone doses. naloxone (NARCAN) injection 0.2 mg(Linked Group 2) 0.2 mg, Intramuscular, EVERY 2 MIN PRN, opioid reversal, Starting on Sat01/22/24 at 1041, Administer intramuscular if an intravenous route is not available and notify provider when administered. For unintended sedation or respiratory depression if all of the below criteria are met: ~ respiratory rate LESS than or EQUAL to 8. ~SaO2 less than 92% and or/end-tidal CO2 is greater than 50. ~ the patient is receiving an opioid, has unintended sedations assessed as RASS (-3), and is currently not on mechanical ventilation. RASS scale moderate (-3) is movement or eye opening to voice but no eye contact. Patient Monitoring Once the patient has demonstrated a response to the naloxone, continue to monitor respiratory rate, depth, oxygen saturation and end-tidal CO2 (if available) every 15 minutes x 2, then every 30 minutes x 2, then every 1 hour x 1 after each naloxone dose. Consider transfer to ICU if patient respiratory parameters have not improved after 4 naloxone doses. naloxone (NARCAN) injection 0.4 mg(Linked Group 2) 0.4 mg, Intravenous, EVERY 2 MIN PRN, opioid reversal, Starting on Sat01/22/24 at 1041, Administer intravenous route when available and notify provider when administered. For unintended sedation or respiratory depression if all of the below criteria are met: ~ respiratory rate LESS than or EQUAL to 8. ~ SaO2 less than 92% and or/end-tidal CO2 is greater than 50. ~ the patient is receiving an opioid, has unintended sedation assessed as RASS (-4) or (-5) and [...] have not improved after 4 naloxone doses. naloxone (NARCAN) injection 0.4 mg(Linked Group 2) 0.4 mg, Intramuscular, EVERY 2 MIN PRN, opioid reversal, Starting on Sat01/22/24 at 1041, Administer intramuscular if an intravenous route is not available and notify provider when administered. For unintended sedation or respiratory depression if all of the below criteria are met: ~ respiratory rate LESS than or EQUAL to 8. ~ SaO2 less than 92% and or/end-tidal CO2 is greater than 50. ~ the patient is receiving an opioid, has unintended sedation assessed as RASS (-4) or (-5) and [...] have not improved after 4 naloxone doses. ondansetron (ZOFRAN ODT) ODT tab 4 mg(Linked Group 3) 4 mg, Oral, EVERY 6 HOURS PRN, [...] required. ondansetron (ZOFRAN) injection 4 mg(Linked Group 3) 4 mg, Intravenous, EVERY 6 HOURS PRN, nausea, vomiting, Administer over 2-5 Minutes, Starting on Sat01/20/24 at 0021, Give IF patient unable to tolerate oral medication. This is Step 1 of nausea and vomiting management. If nausea not resolved in 15 minutes, go to Step 2 prochlorperazine (COMPAZINE). Irritant. oxyCODONE (ROXICODONE) tablet 5 mg 5 mg, Oral, EVERY 6 HOURS PRN, severe pain, If pain not controlled with other pain modalities, Starting on Sat01/22/24 at 1035, PRN med order 1. Scheduled acetaminophen and celecoxib 2. PRN lidocaine patch and topical diclofenac 3. PRN oxycodone prochlorperazine (COMPAZINE) injection 10 mg(Linked Group 4) 10 mg, Intravenous, EVERY 6 HOURS PRN, nausea, vomiting, Administer over 1-2 Minutes, Starting on Sat01/20/24 at 0021, IF patient unable to tolerate oral medication. This is Step 2 of nausea and vomiting management. Give if nausea not resolved 15 minutes after giving ondansetron (ZOFRAN). prochlorperazine (COMPAZINE) suppository 25 mg(Linked Group 4) 25 mg, Rectal, EVERY 12 HOURS PRN, nausea, vomiting, Starting on Sat01/20/24 at 0021, This is Step 2 of nausea and vomiting management. Give if nausea not resolved 15 minutes after giving ondansetron (ZOFRAN). prochlorperazine (COMPAZINE) tablet 10 mg(Linked Group 4) 10 mg, Oral, EVERY 6 HOURS PRN, vomiting, Starting on Sat01/20/24 at 0021, This is Step 2 of nausea and vomiting management. Give if nausea not resolved 15 minutes after giving ondansetron (ZOFRAN). senna-docusate (SENOKOT-S/PERICOLACE) 8.6-50 MG per tablet 1 tablet(Linked Group 5) 1 tablet, Oral, 2 TIMES DAILY PRN, [...] 8.6-50 MG per tablet 2 tablet(Linked Group 5) 2 tablet, Oral, 2 TIMES DAILY PRN, [...] dormant line, Starting on Sat01/20/24 at 0011 210 ($Given - Provider: Stephanie Tobias RN) Linked Groups Order Group 1: acetaminophen (TYLENOL) tablet 975 mgJump to med 975 mg, Oral, 3 TIMES DAILY, First dose (after last modification) on Sat01/22/24 at 1400, Alternate with ibuprofen if ordered. Maximum acetaminophen dose from all sources = 75 mg/kg/day not to exceed 4 grams/day. Or acetaminophen (TYLENOL) Suppository 650 mgJump to med 650 mg, Rectal, 3 TIMES DAILY, First dose (after last modification) on Sat01/22/24 at 1400, Alternate with ibuprofen if ordered. Maximum acetaminophen dose from all sources = 75 mg/kg/day not to exceed 4 grams/day. Group 2: naloxone (NARCAN) injection 0.2 mgJump to med 0.2 mg, Intravenous, EVERY 2 MIN PRN, opioid reversal, Starting on Sat01/22/24 at 1041, Administer intravenous route when available and notify provider when administered. For unintended sedation or respiratory depression if all of the below criteria are met: ~ respiratory rate LESS than or EQUAL to 8. ~SaO2 less than 92% and or/end-tidal CO2 is greater than 50. ~ the patient is receiving an opioid, has unintended sedations assessed as RASS (-3), and is currently not on mechanical ventilation. RASS scale moderate (-3) is movement or eye opening to voice but no eye contact. Patient Monitoring Once the patient has demonstrated a response to the naloxone, continue to monitor respiratory rate, depth, oxygen saturation and end-tidal CO2 (if available) every 15 minutes x 2, then every 30 minutes x 2, then every 1 hour x 1 after each naloxone dose. Consider transfer to ICU if patient respiratory parameters have not improved after 4 naloxone doses. Or naloxone (NARCAN) injection 0.4 mgJump to med 0.4 mg, Intravenous, EVERY 2 MIN PRN, opioid reversal, Starting on Sat01/22/24 at 1041, Administer intravenous route when available and notify provider when administered. For unintended sedation or respiratory depression if all of the below criteria are met: ~ respiratory rate LESS than or EQUAL to 8. ~ SaO2 less than 92% and or/end-tidal CO2 is greater than 50. ~ the patient is receiving an opioid, has unintended sedation assessed as RASS (-4) or (-5) and [...] have not improved after 4 naloxone doses. Or naloxone (NARCAN) injection 0.2 mgJump to med 0.2 mg, Intramuscular, EVERY 2 MIN PRN, opioid reversal, Starting on Sat01/22/24 at 1041, Administer intramuscular if an intravenous route is not available and notify provider when administered. For unintended sedation or respiratory depression if all of the below criteria are met: ~ respiratory rate LESS than or EQUAL to 8. ~SaO2 less than 92% and or/end-tidal CO2 is greater than 50. ~ the patient is receiving an opioid, has unintended sedations assessed as RASS (-3), and is currently not on mechanical ventilation. RASS scale moderate (-3) is movement or eye opening to voice but no eye contact. Patient Monitoring Once the patient has demonstrated a response to the naloxone, continue to monitor respiratory rate, depth, oxygen saturation and end-tidal CO2 (if available) every 15 minutes x 2, then every 30 minutes x 2, then every 1 hour x 1 after each naloxone dose. Consider transfer to ICU if patient respiratory parameters have not improved after 4 naloxone doses. Or naloxone (NARCAN) injection 0.4 mgJump to med 0.4 mg, Intramuscular, EVERY 2 MIN PRN, opioid reversal, Starting on Sat01/22/24 at 1041, Administer intramuscular if an intravenous route is not available and notify provider when administered. For unintended sedation or respiratory depression if all of the below criteria are met: ~ respiratory rate LESS than or EQUAL to 8. ~ SaO2 less than 92% and or/end-tidal CO2 is greater than 50. ~ the patient is receiving an opioid, has unintended sedation assessed as RASS (-4) or (-5) and [...] have not improved after 4 naloxone doses. Group 3: ondansetron (ZOFRAN ODT) ODT tab 4 mgJump [...] to Step 2 prochlorperazine (COMPAZINE). Irritant. Group 4: prochlorperazine (COMPAZINE) injection 10 mgJump to med [...] 15 minutes after giving ondansetron (ZOFRAN). Group 5: senna-docusate (SENOKOT-S/PERICOLACE) 8.6-50 MG per tablet 1 [...] 1 constipation PRN medication is ordered, administer step-rodlan as indicated, moving to the next step [...] documented as of this encounter Care Teams Dental Aide Relationship Specialty Start Date End Date Yung Madrigal MD RETIRED PCP - Orthopaedics Orthopedics 08/26/12 01/20/24 Winston Villatoro OD [facility] [place] [address] [place] [address] PCP - Ophthalmology Ophthalmology 02/11/13 Denise Woodson Ra, APRN [employer] HOUSE[employer] [place] [address] [address] [id number] PCP - General Family Practice 09/21/20 Denise Woodson Ra, APRN [employer] [place] [address] [address] [place] [id number] Assigned PCP 07/17/20 documented as of this encounter
--- OUTSIDE RECORDS SUMMARY | 2024-01-31 12:10 | XMS_ITS | Encounter Summary ---
Author Name Unknown Organization [facility] Address [address] [place] [id number] Care Team Providers Care Professor Of Biochemistry Name Role Phone Yung Madrigal MD Unavailable Unavailable Winston Villatoro OD Unavailable [phone] Denise Woodson Ra, APRN GUEST SERVICES LEAD Unavailable + [phone] Denise Woodson Ra, APRN [employer]UEST SERVICES LEAD Primary Care Provid er Usha Simon SHIRT MARKER GUEST SERVICES LEAD Unavailable +- [phone] Dangelo Salinas MD Unavailable Encounter Details Date Type Department Care Team (Late st Contact Info) Description 01/10/2023 MyC Medical Advice [address] [phone] Arianna Lo Social History Tobacco Use [...] Description 02/03/2024 8:45 AM CDT Therapy Visit [facility] Rehabilitation Services [address] [phone] Denise Woodson Ra, APRN [employer] SERVICES LEAD [address] [place] [address] Addis Rojas, PT [facility] [address] [place] [address] 02/04/2024 PRE VISIT [facility] Neurology [address] [phone] Raul Hoyos MD [address] [place] [address] [phone] *-*INCOMING RECORDS*-* 02/04/2024 11:00 AM CDT Virtual Visit [facility] Neurology [address] [phone] Raul Hoyos MD [address] [place] [phone] 02/06/2024 8:30 AM CDT Office Visit [facility] [address] [place] [phone] Denise Woodson Ra, SHIRT MARKER [employer]ST SERVICES LEAD [address] [place] [address] 02/07/2024 2:00 PM CDT Therapy Visit [facility] Services [address] [phone] Danya You, AMAIRANI [facility] [address] [place] [address] Charis Chacon, JUAN [facility] [address] [place], [place] [address] 02/14/2024 12:45 PM CDT Therapy Visit [facility] [address] [place] [phone] Danya You, PA 2450 [facility] [address] [place] [address] Isabel Beaulieu, OTR [facility] [address] [place] [address] 02/14/2024 2:00 PM CDT Therapy Visit [address] [phone] Danya You, PA 7140 [facility] [address] [place], [place] [address] Charis Chcaon, JUAN [facility] [address] [place] [address] 02/14/2024 2:45 PM CDT Therapy Visit [address] [phone] Danya You, PA 2450 [facility] [address] [place], [place] [address] Maria Eugenia Nguyen, PT [address] [place] [address] 02/17/2024 2:45 PM CDT Therapy Visit [address] [phone] Danya You, PA 2450 [facility] [address] [place] [address] Aliya Kim, DIESEL TRACTOR OPERATOR [address] [facility] 200 [place] [address] 02/19/2024 3:00 PM CDT Therapy Visit [address] [phone] Danya You PA [address] [place] [address] Isabel Beaulieu, OTR [address] [address] 02/26/2024 2:15 PM CDT Therapy Visit [address] [phone] Danya You, AMAIRANI [address] [place] [address] Charis Chacon, [facility] [address] [place] [address] 02/26/2024 3:00 PM CDT Therapy Visit [address] [phone] Danya You, AMAIRANI [address] [place] [address] Isabel Beaulieu, OTR [facility] [address] [address] 02/27/2024 4:45 PM CDT Therapy Visit [address] [phone] Danya You PA [address] [place] [address] Vanessa Duggan, PT 03/05/2024 1:30 PM CDT Therapy Visit [address] [phone] Danya You, AMAIRANI 2450 [facility] [address] [place] [address] [id number] Isabel Beaulieu, OTR [address] [address] 03/05/2024 3:15 PM CDT Therapy Visit [address] [phone] Danya You, PA [address] [place] [address] [address]15[address] Charis Chacon, DIESEL TRACTOR OPERATOR [facility] [address] [place] [address] 03/05/2024 4:15 PM CDT Therapy Visit [address] [phone] Danya You, PA [address] [place] [address] 140764 Delicia George, PT [facility] [address] [place] [address] 03/11/2024 2:15 PM CDT Therapy Visit [address] [phone] Danya You, PA [address] [place] [address] [address] 0[address] Isabel Beaulieu, OTR [facility] [address] [place] [address] 03/11/2024 3:00 PM CDT Therapy [facility] [address] [place] [phone] Danya You, AMAIRANI [address] [address] Charis Chacon, [facility] [address] [place] [address] 03/11/2024 4:15 PM CDT Therapy Visit [address] [phone] Danya You, PA [address] [address] Delicia George, PT [facility] [address] [address] 03/17/2024 1:30 PM CDT Therapy [facility] [address] [place] [phone] Danya You, PA [address] [address] Isabel Beaulieu, OTR [facility] [address] [place] [address] 03/17/2024 2:30 PM CDT Therapy Visit [address] [phone] Danya You, PA 2450 [facility] [address] [place] [address] Charis Chacon, JUAN [facility] [address] [place] [address] 03/17/2024 4:00 PM CDT Therapy Visit [address] [phone] Danya You, PA 3950 [facility] [address] 508594 Delicia George, PT [facility] [address] [address] 03/23/2024 10:30 AM CDT Office Visit [facility] [address] [place] [phone] Denise Woodson Ra, SHIRT MARKER GUEST SERVICES LEAD [address] [place], [place] [phone] 03/26/2024 1:30 PM CDT Therapy Visit [address] [phone] Danya You, AMAIRANI [address] [place] [address] [address] Isabel Beaulieu OTR [address] [address] 03/26/2024 2:30 PM CDT Therapy Visit [address] [phone] Danya You PA [address] [place] [address] Charis Chacon SLP [facility] [address] [place] [address] 03/26/2024 3:30 PM CDT Therapy [facility] [address] [place] [phone] Dnaya You, PA [address] [place] [address] [address] Delicia George, PT [facility] [address] [address] 04/02/2024 2:15 PM CDT Therapy Visit [facility] [address] [place] [phone] Danya You, PA [address] [address] Isabel Beaulieu, OTR [facility] [address] [place] [address] 04/02/2024 3:15 PM CDT Therapy Visit [facility] [address] [place] [phone] Danya You, PA [address] [place] [address] [address] Charis Chacon, JUAN [facility] [address] [place] [address] 04/02/2024 4:15 PM CDT Therapy Visit [address] [phone] Danya You PA [facility] [place] [address] [address] Delicia George, PT [address] [address] 04/09/2024 3:15 PM CDT Therapy Visit [address] [phone] Danya You, AMAIRANI [facility] [place] [address] [address] Charis Chacon, DIESEL TRACTOR OPERATOR [facility] [address] [place] [address] 04/09/2024 4:15 PM CDT Therapy Visit [address] [phone] Danya You, PA [facility] [place] [address] [address] Delicia George, PT [address] [address] 04/15/2024 9:30 AM CDT Therapy Visit [address] [phone] Danya You, PA [facility] [place] [address] [address] Danya Restrepo SLP 04/23/2024 2:30 PM CDT Therapy Visit [facility] [address] [facility] [place] [address] Danya You, PA 2450 [facility] [address] [place] [address] Charis Chacon, JUAN [facility] [address] [place] [address] 06/23/2024 11:00 AM CDT Virtual Visit [facility] [address] [place] [phone] Kristin Vázquez, [facility] [address] [place] [address] 06/30/2024 2:00 PM CDT Virtual Visit [facility] [address] [place] [address] Kristin Vázquez, [facility] [address] [place] [phone] documented as of this encounter Visit Diagnoses Not on filedocumented in this encounter Additional Health Concerns Assessment Noted Time PHQ-9 Depression Total Score: 0 06/23/20 21 4:11 PM CDT documented as of this encounter Care Teams Professor Of Biochemistry Relationship Specialty Start Date End Date Yung Madrigal MD RETIRED PCP - Orthopaedics Orthopedics 08/26/12 01/20/24 Winston Villatoro OD [facility] [address] [facility] [address] [place] [address] PCP - Ophthalmology Ophthalmology 02/11/13 Denise Woodson Ra, APRN GUEST SERVICES LEAD [address] [address] [address] PCP - General Family Practice 09/21/20 Denise Woodson Ra, APRN [employer] SERVICES LEAD [address] [address] [address] Assigned PCP 07/17/20 Usha Simon APRN GUEST SERVICES LEAD 9 [facility] [address] Nurse Practitioner Neurological Surgery 01/24/24 Dangelo Salinas MD [address] [place] [address] Neurology 01/27/24 documented as of this encounter
--- OUTSIDE RECORDS SUMMARY | 2024-01-31 12:10 | XMS_ITS | Encounter Summary ---
Author Name Unknown Organization [facility] Address [address] [place] [address]. [place] [address] Care Team Providers Care Organizational Development Specialist Name Role Phone Yung Madrigal MD Unavailable Unavailable Winston Villatoro OD Unavailable [phone] Denise Woodson Ra, APRN INSPECTOR HANDBAG FRAMES Unavailable [phone] Denise Woodson Ra, APRN INSPECTOR HANDBAG FRAMES Primary Care Provid er Usha Simon APRN INSPECTOR HANDBAG FRAMES Unavailable [phone] Dangelo Salinas MD Unavailable Encounter Details Date Type Department Care Team (Late st Contact Info) Description 06/13/2021 MyC Medical Advice [facility] [id number] [place] [address] Denise Woodson Ra, APRN INSPECTOR HANDBAG FRAMES [address] [place] [address] Insomnia, unspecified type Social History [...] RN - 06/13/2021 5:10 PM CDT Called [facility]. They stated they do not have a refill on file. Prescription approved per [facility] protocol. Mary Caraballo RN on 06/13/2021 at 5:18 PM documented in this encounter Plan of Treatment Upcoming Encounters Date Type Department Care Team (Late st Contact Info) Description 02/03/2024 8:45 AM CDT Therapy Visit [address] [phone] Denise Woodson Ra, SCRAP BALLER INSPECTOR HANDBAG FRAMES [address] [place], [place] [phone] Addis Rojas, PT [facility] [address] [place], [place] [phone] 02/04/2024 PRE VISIT [facility] Neurology [address] [phone] Raul Hoyos MD [address] [place] [address] *-*INCOMING RECORDS*-* 02/04/2024 11:00 AM CDT Virtual Visit [facility] Neurology [address] [phone] Raul Hoyos MD [address] [place] [address] 850795 02/06/2024 8:30 AM CDT Office Visit [facility] [address] [place] [phone] Denise Woodson Ra, SCRAP BALLER INSPECTOR HANDBAG FRAMES [address] [place] [address] 02/07/2024 2:00 PM CDT Therapy Visit [facility] [address] [place] [address] Danya You, PA [address] [place] [address] Charis Chacon, JUAN [facility] [address] [place] [address] 02/14/2024 12:45 PM CDT Therapy Visit [address] [phone] Danya You, AMAIRANI [address] [place] [address] Isabel Beaulieu, OTR [address] [address] 02/14/2024 2:00 PM CDT Therapy Visit [address] [phone] Danya You, PA [address] [address] Charis Chacon, TABLEAU REPORT DEVELOPER [facility] [address] [place], [place] 58[address] 02/14/2024 2:45 PM CDT Therapy Visit [address] [phone] Danya You, AMAIRANI [address] [address] Maria Eugenia Nguyen, PT 2155 [place] [address] 02/17/2024 2:45 PM CDT Therapy Visit [facility] [address] [place] [phone] Danya You, PA 2450 [facility] [address] [place] [address] Aliya Kim, TABLEAU REPORT DEVELOPER [address] [address] 02/19/2024 3:00 PM CDT Therapy Visit [facility] [address] [place] [address] Danya You, PA 2450 [facility] [address] [address] Isabel Beaulieu, OTR [address] [address] 02/26/2024 2:15 PM CDT Therapy Visit [facility] [address] [place] [address] Danya You, PA [address] [address] Charis Chacon, JUAN [facility] [address] [place] [address] 02/26/2024 3:00 PM CDT Therapy Visit [facility] [address] [place] [phone] Kenyatta, AMAIRANI [facility] [address] [place] [address] Isabel Beaulieu, OTR [facility] 150 [facility] [place] [address] 02/27/2024 4:45 PM CDT Therapy Visit [facility] [address] [place] [phone] Danya You PA [address] [address] [place] [address] Vanessa Duggan, PT 03/05/2024 1:30 PM CDT Therapy Visit [facility] [address] [place] [phone] Danya You PA [address] [place] [address] Isabel Beaulieu, OTR [facility] [address] [place] [address] 03/05/2024 3:15 PM CDT Therapy Visit [facility] [address] [place] [address] Danya You PA [address] [address] [address] Charis Chacon, [facility] [address] [place] [address] 03/05/2024 4:15 PM CDT Therapy Visit [facility] [address] [place] [phone] Danya You PA [address] [place] [address] Delicia George, PT [address] [address] 03/11/2024 2:15 PM CDT Therapy Visit [address] [phone] Danya You, PA [address] [place] [address] [place] [address] Isabel Beaulieu, OTR [address] [address] 03/11/2024 3:00 PM CDT Therapy Visit [address] [phone] Danya You, PA [address] [address] Charis Chacon, JUAN [facility] [address] [place] [address] 03/11/2024 4:15 PM CDT Therapy Visit [address] [phone] Danya You, PA [address] [place] [address] [place] [address] Delicia George, PT [address] [address] 03/17/2024 1:30 PM CDT Therapy Visit [facility] [address] [place] [phone] Danya You, AMAIRANI [address] [address] Isabel Beaulieu, OTR [address] [address] 03/17/2024 2:30 PM CDT Therapy Visit [address] [phone] Danya You, AMAIRANI [address] [address] Charis Chacon, JUAN [facility] [address] [place] [address] 03/17/2024 4:00 PM CDT Therapy Visit [address] [phone] Danya You, PA [address] [place] [address] Delicia George, PT [facility]ERY [address] [address] 03/23/2024 10:30 AM CDT Office Visit [facility] [address] [place] [phone] Denise Woodson Ra, SCRAP BALLER INSPECTOR HANDBAG FRAMES [address] [place], [place] 6119668 03/26/2024 1:30 PM CDT [facility] 150 [facility] [address] Danya You PA [address] [address] Isabel Beaulieu, OTR [facility] [address] [place] [address] 03/26/2024 2:30 PM CDT Therapy Visit [facility] [address] [place] [address] Danya You, AMAIRANI [facility] [address] [address] Charis Chacon, [facility] [address] [place] [address] 03/26/2024 3:30 PM CDT Therapy Visit [facility] [address] [place] [address] Danya You, AMAIRANI [facility] [address] [address] Delicia George, PT [facility] [address] [address] 04/02/2024 2:15 PM CDT [facility] [address] [place] [phone] Danya You PA [facility] [address] [address] Isabel Beaulieu, OTR [facility] [address] [place] [address] 04/02/2024 3:15 PM CDT Therapy [facility] [place] [address] Danya You PA [address] [place] [address] Charis Chacon SLP [facility] [address] [place] [address] 04/02/2024 4:15 PM CDT Therapy Visit [address] [phone] Danya You, PA [address] [address] [address] Delicia George, PT [facility] [address] [place] [address] 04/09/2024 3:15 PM CDT [facility] [address] Danya You, PA [address] [facility] [address] [place] [address] Charis Chacon, JUAN [facility] [address] [place] [address] 04/09/2024 4:15 PM CDT [facility] [address] Danya You PA [address] [place] [address] Delicia George, PT [facility] 909 [place] [address] 04/15/2024 9:30 AM CDT Therapy Visit [address] [address] Danya You, PA 2450 [facility] [address] [address] Danya Restrepo, TABLEAU REPORT DEVELOPER 04/23/2024 2:30 PM CDT Therapy Visit [address] [address] Danya You, PA [address] [place], [place] [address] [address] [address] Charis Chacon, J[facility]AN [facility] [address] [place] [address] 06/23/2024 11:00 AM CDT Virtual Visit [facility] Mental Health & Addiction [address] [address] Kristin Vázquez, [facility] 8703 [place] [address] 06/30/2024 2:00 PM CDT Virtual Visit [facility] Mental Health & Addiction [facility] 6401 [place] [address] Kristin Vázquez, [facility] 2741 [place] [address] documented as of this encounter Visit Diagnoses Diagnosis Insomnia, unspecified type documented in this encounter Additional Health Concerns Assessment Noted Time PHQ-9 Depression Total Score: 0 01/05/20 21 9:31 AM CDT documented as of this encounter Care Teams Organizational Development Specialist Relationship Specialty Start Date End Date Yung Madrigal MD RETIRED PCP - Orthopaedics Orthopedics 08/26/12 01/20/24 Winston Villatoro OD [facility] [address] [place] [address] PCP - Ophthalmology Ophthalmology 02/11/13 Denise Woodson Ra, APRN INSPECTOR HANDBAG FRAMES [address] [place] [address] PCP - General Family Practice 09/21/20 Denise Woodson Ra, APRN INSPECTOR HANDBAG FRAMES [address] [place] [address] Assigned PCP 07/17/20 Usha Simon APRN INSPECTOR HANDBAG FRAMES 909 [facility]J [place] [address] Nurse Practitioner Neurological Surgery 01/24/24 Dangelo Salinas MD [address] [place] [address] Neurology 01/27/24 documented as of this encounter
--- OUTSIDE RECORDS SUMMARY | 2024-01-31 12:10 | XMS_ITS | Encounter Summary ---
Author Name Unknown Organization [facility] Address [address] [place] [address] Care Team Providers Care Advertising Analyst Name Role Phone Yung Madrigal MD Unavailable Unavailable Winston Villatoro OD Unavailable [phone] Denise Woodson Ra, APRN PROFESSIONAL WRESTLER Unavailable [phone]- [phone] Denise Woodson Ra, APRN PROFESSIONAL WRESTLER Primary Care Provid er Usha Simon NOVELTY CANDY MAKER PROFESSIONAL WRESTLER Unavailable [phone]- [phone] Dangelo Salinas MD Unavailable Encounter Details Date Type Department Care Team (Late st Contact Info) Description 01/22/2022 [facility] Medical Advice [address] [address] Angelo Escobar Social History Tobacco Use [...] Description 02/03/2024 8:45 AM CDT Therapy Visit [address] [phone] Denise Woodson Ra, NOVELTY CANDY MAKER PROFESSIONAL WRESTLER [address] [place], [place] [phone] Addis Rojas, PT [facility] [address] [place] [address] 02/04/2024 PRE VISIT [facility] Neurology [address] [phone] Raul Hoyos MD [address] [place] [address] 424915 *-*INCOMING RECORDS*-* 02/04/2024 11:00 AM CDT Virtual Visit [facility] Neurology [address] [phone] Raul Hoyos MD [address] [place] [address] 4764[address] 02/06/2024 8:30 AM CDT Office Visit [facility] [address] [place] [phone] Denise Woodson Ra, NOVELTY CANDY MAKER PROFESSIONAL WRESTLER [address] [place], [place] 88[address]68 02/07/2024 2:00 PM CDT Therapy Visit [address] [phone] Danya You PA [address] [place] [address] Charis Chacon, JUAN [facility] [address] [place] [address] 02/14/2024 12:45 PM CDT Therapy Visit [address] [address] Danya You, PA [address] [place] [address] Isabel Beaulieu OTJah [address] [address] 02/14/2024 2:00 PM CDT Therapy Visit [address] [address] Danya You, PA [address] [place] [address] Charis Chacon, J[facility]AN [facility] [address] [place] [address] 02/14/2024 2:45 PM CDT Therapy Visit [address] [address] Danya You, PA [address] [place] [address] Maria Eugenia Nguyen, PT 2[address] [place] [address] 02/17/2024 2:45 PM CDT Therapy Visit [address] [phone] Danya You PA [address] [place] [address] Aliya Kim, BUSINESS MANAGEMENT ANALYST [address] [facility], [address] [place] [address] 02/19/2024 3:00 PM CDT Therapy Visit [facility] [address] [place] [phone] Danya You PA [address] [place] [address] Isabel Beaulieu, OTR [facility] [address] [place] [address] 02/26/2024 2:15 PM CDT Therapy Visit [facility] [address] [place] [phone] Danya You, PA [address] [address] Charis Chacon, J[facility]AN [facility] [address] [place] [address] 02/26/2024 3:00 PM CDT Therapy Visit [facility] [address] [place] [phone] Danya You PA [address] [address] Isabel Beaulieu, OTR [facility] [address] [place] [address] 02/27/2024 4:45 PM CDT Therapy Visit [facility] [address] [place] [address] Danya You, PA [address] [place] [address] Vanessa Duggan, PT 03/05/2024 1:30 PM CDT Therapy Visit [address] [phone] Danya You, PA [address] [place] [address] 271154 Isabel Beaulieu, OTJah [address] [address] 03/05/2024 3:15 PM CDT Therapy Visit [address] [phone] Danya You, PA [address] 014[address] Charis Chacon, [facility] [address] [place] [address] 03/05/2024 4:15 PM CDT Therapy Visit [address] [phone] Danya You, PA [address] [place] [address] Delicia George, PT [facility] [address] [place] [address] 03/11/2024 2:15 PM CDT Therapy Visit [address] [phone] Danya You, AMAIRANI 2450 [facility] [address] [address] Isabel Beaulieu, OTR [address] [address] 03/11/2024 3:00 PM CDT Therapy Visit [address] [phone] Danya You, PA [facility] [address] 4514[address] Charis Chacon, BUSINESS MANAGEMENT ANALYST [facility] [address] [place] [address] 03/11/2024 4:15 PM CDT Therapy Visit [address] [phone] Danya You, PA [facility] [address] [address] Delicia George, PT [facility] [address] [place] [address] 03/17/2024 1:30 PM CDT Therapy Visit [address] [phone] Danya You PA [facility] [address] [address] Isabel Beaulieu, OTR [place] [address] [address] 03/17/2024 2:30 PM CDT Therapy Visit [address] [phone] Danya You, PA [address] 623[address] Charis Chacon, JUAN [facility] [address] [place] [address] 03/17/2024 4:00 PM CDT Therapy Visit [address] [phone] Danya You, PA [address] 570[address] Delicia George, PT [facility] [address] [place] [address] 9478[address] 03/23/2024 10:30 AM CDT Office Visit [facility] [address] [place] [address] Denise Woodson Ra, NOVELTY CANDY MAKER [facility] [address] [place] [address] 03/26/2024 1:30 PM CDT Therapy Visit [address] [phone] Danya You, PA [facility] [address] [address] Isabel Beaulieu, OTR [facility] LYNNTONE 150 [facility] [place] [address] 03/26/2024 2:30 PM CDT Therapy Visit [facility] [address] [facility] [place] [address] Danya You, AMAIRANI [address] [place] [address] Charis Chacon, JUAN [facility] [address] [place] [address] 03/26/2024 3:30 PM CDT Therapy [facility] [address] [place] [address] Danya You, PA [address] [place] [address] Delicia George, PT [facility] [place] 312899 [place] [address] 04/02/2024 2:15 PM CDT Therapy Visit [facility] [address] [place] [address] Danya You, PA [address] [place] [address] Isabel Beaulieu, OTR [facility] LYNNABRAZO CENTRAL CAMPU[facility] [address] [place] [address] 04/02/2024 3:15 PM CDT Therapy Visit [facility] [address] [place] [address] Danya You, PA [address] [place] [address] Charis Chacon SLP [facility] [address] [place] [address] 04/02/2024 4:15 PM CDT Therapy Visit [address] [phone] Danya You PA [address] [place] [address] Delicia George, PT [address] [address] 04/09/2024 3:15 PM CDT Therapy Visit [address] [address] Danya You, AMAIRANI [address] [place] [address] Charis Chacon, J[facility]AN [facility] [address] [place] [address] 04/09/2024 4:15 PM CDT Therapy Visit [address] [address] Danya You, AMAIRANI [address] [place] [address] Delicia George, PT [address] [address] 04/15/2024 9:30 AM CDT Therapy Visit [facility] [address] [place] [address] Danya You, PA [address] [place] [address] Danya Restrepo SLP 04/23/2024 2:30 PM CDT Therapy Visit [facility] [address] [place] [address] Danya You PA [address] [place] [address] Charis Chacon SLP [facility] [address] [place] [address] 06/23/2024 11:00 AM CDT Virtual Visit [facility] Mental Health & Addiction [facility] [address] [place] [address] Kristin Vázquez, [facility] [address] [place] [address] 06/30/2024 2:00 PM CDT Virtual Visit [facility] Mental Health & Addiction [facility] [address] [place] [address] Kristin Vázquez, [facility] [address] [place] [address] documented as of this encounter Visit Diagnoses Not on filedocumented in this encounter Additional Health Concerns Assessment Noted Time PHQ-9 Depression Total Score: 0 06/23/20 21 4:11 PM CDT documented as of this encounter Care Teams Advertising Analyst Relationship Specialty Start Date End Date Yung Madrigal MD RETIRED PCP - Orthopaedics Orthopedics 08/26/12 01/20/24 Winston Villatoro OD [facility] [place] [address] [facility] [address] [place] [address] PCP - Ophthalmology Ophthalmology 02/11/13 Denise Woodson Ra, APRN PROFESSIONAL WRESTLER [address] [address] PCP - General Family Practice 09/21/20 Denise Woodson Ra, APRN PROFESSIONAL WRESTLER [address] [place] [place] [address] Assigned PCP 07/17/20 Usha Simon APRN PROFESSIONAL WRESTLER [address] [place] [address] [address] Nurse Practitioner Neurological Surgery 01/24/24 Dangelo Salinas MD [address] [facility] [address] [address] Neurology 01/27/24 documented as of this encounter
--- OUTSIDE RECORDS SUMMARY | 2024-01-31 12:10 | XMS_ITS | Encounter Summary ---
Author Name Unknown Organization [facility] Address [address] [place] [address]. [place] [address] Care Team Providers Care Conduit Helper Name Role Phone Yung Madrigal MD Unavailable Unavailable Winston Villatoro OD Unavailable [phone] Denise Woodson Ra, APRN ROTARY ROCK DRILLING MACHINE OPERATOR Unavailable [phone]- [phone] Denise Woodson Ra, APRN ROTARY ROCK DRILLING MACHINE OPERATOR Primary Care Provid er Usha Simon APRN ROTARY ROCK DRILLING MACHINE OPERATOR Unavailable +- [phone] Dangelo Salinas MD Unavailable Reason for Visit * Reason Comments Medication Refill Encounter Details Date Type Department Care Team (Late st Contact Info) Description 02/19/2022 Refill [facility] [address] [place] [phone] Denise Woodson Ra, APRN ROTARY ROCK DRILLING MACHINE OPERATOR [address] [place] [address] Medication Refill Social History Tobacco [...] Description 02/03/2024 8:45 AM CDT Therapy Visit [address] [phone] Denise Woodson Ra, SHEET ROCK INSTALLATION HELPER ROTARY ROCK DRILLING MACHINE OPERATOR [address] [place], [place] [phone] Addis Rojas, PT [facility] [address] [place] [address] 02/04/2024 PRE VISIT [facility] [address] [address] Raul Hoyos MD [address] [place] [address] [phone] *-*INCOMING RECORDS*-* 02/04/2024 11:00 AM CDT Virtual Visit [facility] [address] [address] Raul Hoyos MD [address] [place] [address] 313375 02/06/2024 8:30 AM CDT Office Visit [facility] [address] [place] [phone] Chintan Denise Ra, SHEET ROCK INSTALLATION HELPER ROTARY ROCK DRILLING MACHINE OPERATOR [address] [place], [place] [phone] 02/07/2024 2:00 PM CDT Therapy Visit [facility] [address] [place] [phone] Danya You, AMAIRANI [address] [place] [address] 213 [place] [address] Charis Chacon, J[facility]AN [facility] [address] [place], [place] [address] 02/14/2024 12:45 PM CDT Therapy Visit [address] [phone] Danya You, AMAIRANI [facility] [address] [address] Isabel Beaulieu, OTJah [facility] 150 [place] [address] 02/14/2024 2:00 PM CDT Therapy Visit [address] [phone] Danya You, PA [address] 220024 Charis Chacon, JUAN [facility] [address] [place], [place] [address]777 02/14/2024 2:45 PM CDT Therapy Visit [address] [phone] Danya You PA [address] [place] [address] Maria Eugenia Nguyen, PT 2[address] [place] [address] 02/17/2024 2:45 PM CDT Therapy Visit [facility] 150 [place] [address] Danya You, PA [address] [place] [address] Aliya Kim, TALKING BOOKS LIBRARY CLERK [address] [facility] 200 [place] [address] 02/19/2024 3:00 PM CDT Therapy Visit [facility] 150 [place] [address] Danya You, PA 2450 [facility] [address] [address] Isabel Beaulieu, OTR [address] [address] 02/26/2024 2:15 PM CDT Therapy Visit [address] [address] Danya You, AMAIRANI [address] [place] [address] Charis Chacon, JUAN [facility] [address] [place] [address] 02/26/2024 3:00 PM CDT Therapy Visit [address] [place] [address] Danya You, PA [address] [place] [address] Isabel Beaulieu, OTR [facility] 150 [facility] [place] [address] 02/27/2024 4:45 PM CDT [facility] [address] [place] [address] Danya You, PA 2450 [facility] [address] [place] [address] Vanessa Duggan, PT 03/05/2024 1:30 PM CDT Therapy Visit [facility] 150 [place] [address] Danya You PA 2450 [facility] [address] [address] Isabel Beaulieu, OTR [facility] 150 [place] [address] 03/05/2024 3:15 PM CDT Therapy Visit [facility] 150 [place] [address] Danya You, PA 2450 [facility] [address] [address] Charis Chacon, J[facility]AN [facility] [address] [place] [address] 03/05/2024 4:15 PM CDT Therapy Visit [facility] 150 [place] [address] Danya You PA [address] [place] [address] Delicia George, PT [address] 421415 03/11/2024 2:15 PM CDT Therapy Visit [facility] 150 [place] [address] Danya You, AMAIRANI [address] [place] [address] Isabel Beaulieu, JAIMIE [facility] 150 [place] [address] 03/11/2024 3:00 PM CDT Therapy Visit [facility] 150 [place] [address] Danya You, PA [address] [address] Charis Chacon, TALKING BOOKS LIBRARY CLERK [facility] [address] [place] [address] 03/11/2024 4:15 PM CDT Therapy Visit [facility] [address] [place] [address] Danya You, PA [address] [place] [address] Delicia George, PT [facility] [address] [place] [address] 03/17/2024 1:30 PM CDT Therapy Visit [address] [phone] Danya You, PA 2450 [facility] [address] [address] Isabel Beaulieu, OTR [address] [address] 03/17/2024 2:30 PM CDT Therapy Visit [address] [phone] Danya You, PA [address] [address] Charis Chacon, J[facility]AN [facility] [address] [place] [address] 03/17/2024 4:00 PM CDT Therapy Visit [address] [phone] [place], [place] 9570 [facility] [address] [address] Delicia George, PT [facility] [address] [place] [address] 03/23/2024 10:30 AM CDT Office Visit [facility] [address] [place] [phone] Denise Woodson Ra, SHEET ROCK INSTALLATION HELPER [facility] [address] [place] [address] 03/26/2024 1:30 PM CDT Therapy Visit [address] [phone] Danya You, PA [address] [place] [address] Isabel Beaulieu, OTR [address] [address] 03/26/2024 2:30 PM CDT Therapy Visit [address] [phone] Danya You, AMAIRANI [address] [place] [address] Charis Chacon, JUAN [facility] [address] [place] [address] 03/26/2024 3:30 PM CDT Therapy Visit [address] [phone] Danya You, PA [address] [place] [address] [phone] Delicia George, PT [facility] [address] [place] [address] 04/02/2024 2:15 PM CDT Therapy Visit [address] [phone] Danya You, PA [address] [place] [address] 836864 Isabel Beaulieu, OTR [facility] 150 [place] [address] 04/02/2024 3:15 PM CDT Therapy Visit [address] [phone] Danya You, PA [address] [address] Charis Chacon, J[facility]AN [facility] [address] [place], [place] 252847 04/02/2024 4:15 PM CDT Therapy Visit [address] [phone] Danya You, PA [address] [address] Delicia George, PT [facility] [address] [address] 04/09/2024 3:15 PM CDT Therapy Visit [address] [phone] Danya You, PA [address] [place] [address] Charis Chacon, J[facility]AN [facility] [address] [place] [address] 04/09/2024 4:15 PM CDT Therapy Visit [address] [phone] Danya You PA [address] [place] [address] Delicia George, PT [facility] [address] [place] [address] 04/15/2024 9:30 AM CDT Therapy Visit [address] [address] Danya You, PA [address] [place] [address] Danya Restrepo, TALKING BOOKS LIBRARY CLERK 04/23/2024 2:30 PM CDT Therapy Visit [address] [address] Danya You, PA [facility] [address] [place] [address] Charis Chacon, J[facility]AN [facility] [address] [place] [address] 06/23/2024 11:00 AM CDT Virtual Visit [facility] [place] [address] [place] [address] Kristin Vázquez, [facility] 6841 [place] [address] 06/30/2024 2:00 PM CDT Virtual Visit [facility] 6401 [place] [address] Kristin Vázquez, [facility] 6341 [facility] [address] documented as of this encounter Visit Diagnoses Diagnosis Moderate persistent asthma without complication Unspecified asthma documented in this encounter Additional Health Concerns Assessment Noted Time PHQ-9 Depression Total Score: 0 06/23/20 21 4:11 PM CDT documented as of this encounter Care Teams Conduit Helper Relationship Specialty Start Date End Date Yung Madrigal MD RETIRED PCP - Orthopaedics Orthopedics 08/26/12 01/20/24 Winston Villatoro OD [facility] [place] [address] [facility] [address] [place] [address] PCP - Ophthalmology Ophthalmology 02/11/13 Denise Woodson Ra, APRN ROTARY ROCK DRILLING MACHINE OPERATOR [address] [place] [address] PCP - General Family Practice 09/21/20 Denise Woodson Ra, APRN ROTARY ROCK DRILLING MACHINE OPERATOR [address] [place] [address] Assigned PCP 07/17/20 Usha Simon APRN ROTARY ROCK DRILLING MACHINE OPERATOR 909 [facility]121[place] [address] Nurse Practitioner Neurological Surgery 01/24/24 Dangelo Salinas MD 1650 [facility] [address] [address] Neurology 01/27/24 documented as of this encounter
--- OUTSIDE RECORDS SUMMARY | 2024-01-31 12:10 | XMS_ITS | Encounter Summary ---
Author Name Unknown Organization [facility] Address [address] [place] [address]. [place] [address] Care Team Providers Care Events Traffic Controller Name Role Phone Yung Madrigal MD Unavailable Unavailable Winston Villatoro OD Unavailable [phone] Denise Woodson Ra, APRN CONTINUOUS IMPROVEMENT FACILITATOR Unavailable [phone] Denise Woodson Ra PROVIDER NETWORK MANAGER CONTINUOUS IMPROVEMENT FACILITATOR Primary Care Provid er Usha Simon APRN CONTINUOUS IMPROVEMENT FACILITATOR Unavailable +- [phone] Dangelo Salinas MD Unavailable Reason for Visit * Reason Onset Date Comments URI 09/21/2020 Encounter Details Date Type Department Care Team (Late st Contact Info) Description 09/21/2020 MyC Medical Advice [facility] [address] [place] [address] Denise Woodson Ra, APRN CONTINUOUS IMPROVEMENT FACILITATOR [address] [place], [place] [id number] URI Social History Tobacco Use Types Packs/Day [...] COVID-19? No / Unsure 09/21/2020 12:04 PM SLOTS MANAGER documented as of this encounter Miscellaneous Notes * Telephone Encounter - Kati Yang RN - 09/21/2020 10:54 AM CST [email or web address] message sent to patient. Kati Yang RN S MANAGER documented in this encounter Plan of Treatment Upcoming Encounters Date Type Department Care Team (Late st Contact Info) Description 02/03/2024 8:45 AM CDT Therapy Visit [facility] [address] [address] Denise Woodson Ra, PROVIDER NETWORK MANAGER [facility] [address] [place], [place] [phone] Addis Rojas, PT [facility] [address] [place] [address] 02/04/2024 PRE VISIT [facility] [address] [phone] Raul Hoyos MD [address] [place] [address]78695 *-*INCOMING RECORDS*-* 02/04/2024 11:00 AM CDT Virtual Visit [facility] [address] [address] Raul Hoyos MD [address] [place] [place] [address] 568935 02/06/2024 8:30 AM CDT Office Visit [facility] [address] [place] [phone] Denise Woodson Ra, PROVIDER NETWORK MANAGER CONTINUOUS IMPROVEMENT FACILITATOR [address] [facility] [place], [place] 8959668 02/07/2024 2:00 PM CDT Therapy Visit [facility] 150 [place] [phone] Danya You, AMAIRANI 2450 [facility] 213 [place] [address] Charis Chacon, JUAN [facility] [address] [place] [address] 02/14/2024 12:45 PM CDT Therapy Visit [address] [phone] Danya You, AMAIRANI 2450 [facility] 213 [place] [address] Isabel Beaulieu, OTR [facility] 150 [place] [address] 02/14/2024 2:00 PM CDT Therapy Visit [facility] 150 [place] [address] Danya You, PA 2450 [facility] 213 [place] [address] Charis Chacon, [facility] [address] [place] [address] 02/14/2024 2:45 PM CDT Therapy Visit [facility] 150 [place] [phone] Danya You PA [address] [place] [address] Maria Eugenia Nguyen, PT 2155 [place] [address] 02/17/2024 2:45 PM CDT Therapy Visit [facility] 150 [place] [phone] Danya You, PA [address] [place] [address] Aliya Kim, CLAMP TRUCK DRIVER [address] [address] 02/19/2024 3:00 PM CDT Therapy Visit [address] [address] Danya You, PA 2450 [facility] 213 [place] [address] Isabel Beaulieu, OTR [address] [address] 02/26/2024 2:15 PM CDT Therapy Visit [address] [phone] Danya You, PA [address] [place] [address] Charis Chacon, [facility] [address] [place] [address] 02/26/2024 3:00 PM CDT Therapy Visit [address] [address] Danya You, PA [address] [place] [address] Isabel Beaulieu, OTR [facility] 150 [facility] [place] [address] 02/27/2024 4:45 PM CDT Therapy Visit [facility] 150 [place] [address] Danya You, PA [address] [address] Vanessa Duggan, PT 03/05/2024 1:30 PM CDT Therapy Visit [facility] 150 [place] [address] Danya You, AMAIRANI [address] [address] Isabel Beaulieu, OTR [facility] 150 [place] [address] 03/05/2024 3:15 PM CDT Therapy Visit [facility] 150 [place] [address] Danya You, PA [address] 7[address] Charis Chacon, J[facility]AN [facility] [address] [place] [address] 03/05/2024 4:15 PM CDT Therapy Visit [facility] 150 [place] [address] Danya You PA [address] [place] [address] Delicia George, PT [address] [address] 03/11/2024 2:15 PM CDT Therapy Visit [facility] 150 [place] [address] Danya You, AMAIRANI [address] [address] Isabel Beaulieu OTR [facility] 150 [place] [address] 03/11/2024 3:00 PM CDT Therapy Visit [address] [phone] Danya You, PA [address] [address] Charis Chacon, [facility] [address] [place] [address] 03/11/2024 4:15 PM CDT Therapy Visit [facility] 150 [place] [phone] Danya You, PA [address] [address] Delicia George, PT [facility] [address] [place] [address] 03/17/2024 1:30 PM CDT Therapy Visit [address] [phone] Danya You, PA [address] [address] Isabel Beaulieu OTJah [address] [address] 03/17/2024 2:30 PM CDT Therapy Visit [address] [address] Danya You, PA [address] [address] Charis Chacon, [facility] [address] [place] [address] 03/17/2024 4:00 PM CDT Therapy Visit [address] [phone] Danya You, PA [address] [place] [address] Delicia George, PT [facility] [address] [place] [address] 03/23/2024 10:30 AM CDT Office Visit [facility] [address] [place] [address] Denise Woodson Ra, PROVIDER NETWORK MANAGER [facility] [address] [place] [address] 03/26/2024 1:30 PM CDT Therapy Visit [address] [phone] Danya You, AMAIARNI [address] [place] [address] Isabel Beaulieu, OTR [address] [address] 03/26/2024 2:30 PM CDT Therapy Visit [address] [phone] Danya You, AMAIRANI [address] [address] Charis Chacon, [facility] [address] [place] [address] 03/26/2024 3:30 PM CDT Therapy Visit [address] [phone] Danya You, PA [address] [place] [address] Delicia George, PT [facility] [address] [place] [address] 04/02/2024 2:15 PM CDT Therapy Visit [address] [phone] Danya You, PA [address] [place] [address] Isabel Beaulieu, OTR [facility] 150 [place] [address] 04/02/2024 3:15 PM CDT Therapy Visit [facility] 150 [place] [phone] Danya You, AMAIRANI [address] [address] Charis Chacon, [facility] [address] [place] [address] 04/02/2024 4:15 PM CDT Therapy Visit [address] [phone] Danya You, PA [address] [address] Delicia George, PT [facility] [address] [place] [address] 04/09/2024 3:15 PM CDT Therapy Visit [address] [phone] Danya You, PA 2450 [facility] [address] [address] Charis Chacon, [facility] [address] [place] [address] 04/09/2024 4:15 PM CDT Therapy Visit [address] [phone] Danya You PA [address] [place] [address] Delicia George, PT [facility] 909 [place] [address] 04/15/2024 9:30 AM CDT Therapy Visit [facility] 150 [place] [address] Danya You, PA [address] [place] [address] Danya Restrepo, CLAMP TRUCK DRIVER 04/23/2024 2:30 PM CDT Therapy Visit [address] [phone] Danya You PA [address] [place] [address] Charis Chacon, [facility]AN [facility] [address] [place] [address] 06/23/2024 11:00 AM CDT Virtual Visit [facility] [place] [address] [place] [address] Kristin Vázquez, [facility] 8979 [place] [phone] 06/30/2024 2:00 PM CDT Virtual Visit [facility] 6401 [place] [address] Kristin Vázquez, [facility] 6341 [place] [address] documented as of this encounter Visit Diagnoses Not on filedocumented in this encounter Additional Health Concerns Assessment Noted Time PHQ-9 Depression Total Score: 0 06/15/20 19 7:09 PM CDT documented as of this encounter Care Teams Events Traffic Controller Relationship Specialty Start Date End Date Yung Madrigal MD RETIRED PCP - Orthopaedics Orthopedics 08/26/12 01/20/24 Winston Villatoro, OD [facility] [place] [address] [place] [address] PCP - Ophthalmology Ophthalmology 02/11/13 Denise Woodson Ra, APRN CONTINUOUS IMPROVEMENT FACILITATOR [address] [place] [address] PCP - General Family Practice 09/21/20 Denise Woodson Ra, APRN CONTINUOUS IMPROVEMENT FACILITATOR [address] [place] [address] Assigned PCP 07/17/20 Usha Simon APRN CONTINUOUS IMPROVEMENT FACILITATOR 909 [facility]121[place] [address] Nurse Practitioner Neurological Surgery 01/24/24 Dangelo Salinas MD [address] [place] [address] [place], [place] [phone] Neurology 01/27/24 documented as of this encounter
--- OUTSIDE RECORDS SUMMARY | 2024-01-31 12:10 | XMS_ITS | Encounter Summary ---
Author Name Unknown Organization [place] Address [address] [place] [address] Care Team Providers Care Foundry Manager Name Role Phone Yung Madrigal MD Unavailable Unavailable Winston Villatoro OD Unavailable [phone] Denise Woodson Ra, APRN MATCH UP PERSON Unavailable + [phone] Denise Woodson Ra, APRN MATCH UP PERSON Primary Care Provid er Usha Simon PRESS TENDER SHORT GOODS MATCH UP PERSON Unavailable +- [phone] Dangelo Salinas MD Unavailable Encounter Details Date Type Department Care Team (Late Contact Info) Description 12/30/2020 [facility] [address] [address] Jessica Phipps, PRODUCTION SCHEDULER Social History Tobacco Use Types Packs/Day Years [...] Description 02/03/2024 8:45 AM CDT Therapy Visit [address] [phone] Denise Woodson Ra, PRESS TENDER SHORT GOODS MATCH UP PERSON [address] [facility] [place] [address] Addis Rojas, PT [facility] [address] [place], [place] [phone] 02/04/2024 PRE VISIT [facility] Neurology [address] [address] Raul Hoyos MD [address] [place] [address] [phone] *-*INCOMING RECORDS*-* 02/04/2024 11:00 AM CDT Virtual Visit [facility] Neurology [address] [address] Raul Hoyos MD [address] [place] [address] [phone] 02/06/2024 8:30 AM CDT Office Visit [facility] [address] [place] [phone] Denise Woodson Ra, PRESS TENDER SHORT GOODS MATCH UP PERSON [address] [place] [address] 02/07/2024 2:00 PM CDT Therapy Visit [address] [phone] Danya You, PA [address] [place], [place] [address] Charis Chacon, [facility] [address] [place] [address] 02/14/2024 12:45 PM CDT Therapy Visit [address] [phone] Danya You, PA [address] CHAR[address] [place] [address] Isabel Beaulieu, OTR [address] [address] 02/14/2024 2:00 PM CDT Therapy Visit [address] [phone] Danya You, AMAIRANI [address] [place] [address] Charis Chacon, [facility] [address] [place] [address] 02/14/2024 2:45 PM CDT Therapy Visit [address] [phone] Danya You, PA [address] [place] [address] Maria Eugenia Nguyen, PT [address] [place] [address] 02/17/2024 2:45 PM CDT Therapy Visit [address] [phone] Danya You, AMAIRANI [address] [place] [address] Aliya Kim, TRAVELER CHANGER [address] [facility], [address] [place] [address] 02/19/2024 3:00 PM CDT Therapy Visit [facility] [address] [place] [phone] Danya You, PA [address] MB [address] [place] [address] Isabel Beaulieu, JAIMIE SHEPPARD [address] [address] 02/26/2024 2:15 PM CDT Therapy Visit [address] [phone] Danya You, PA [address] [address] Charis Chacon, [facility] [address] [place] [address] 02/26/2024 3:00 PM CDT Therapy Visit [facility] [address] [place] [phone] Danya You, PA [address] [address] Isabel Beaulieu, OTR FV [address] [address] 02/27/2024 4:45 PM CDT Therapy Visit [address] [place] [address] Danya You, PA [address] [place] [address] Vanessa Duggan, PT 03/05/2024 1:30 PM CDT Therapy Visit [address] [phone] Danya You, PA [address] [address] Isabel Beaulieu OTJah [address] [address] 03/05/2024 3:15 PM CDT Therapy Visit [address] [phone] Danya You, PA [address] 568814 Charis Chacon, [facility] [address] [place] [address] 03/05/2024 4:15 PM CDT Therapy Visit [address] [phone] Danya You, PA [address] [address] Delicia George, PT [facility] [address] [place] [address] 03/11/2024 2:15 PM CDT Therapy Visit [address] [place] [address] Danya You PA 2450 [facility] [address] 824[address] Isabel Beaulieu, OTR FV [facility] 150 [place] [address] 03/11/2024 3:00 PM CDT Therapy Visit [facility] [address] [place] [phone] Danya You, AMAIRANI 2450 [facility] [address] [address] Charis Chacon, [facility] [address] [place] [address] 03/11/2024 4:15 PM CDT Therapy Visit [facility] [address] [place] [phone] Danya You, AMAIRANI [facility] [address] [address] Delicia George, PT [facility] [address] [place] [address] 03/17/2024 1:30 PM CDT Therapy Visit [facility] [address] [place] [phone] Danya You, AMAIRANI [facility] [address] [address] Isabel Beaulieu, [facility] [address] [place] [address] 03/17/2024 2:30 PM CDT Therapy Visit [address] [phone] Danya You, PA 2450 [facility] [address] [place] [address] Charis Chacon, [facility] [address] [place] [address] 03/17/2024 4:00 PM CDT Therapy Visit [address] [phone] Danya You, PA [address] 603764 Delicia George, PT [facility] [address] [place] [address] 03/23/2024 10:30 AM CDT Office Visit [facility] [address] [place] [address] Denise Woodson Ra, PRESS TENDER SHORT GOODS [facility] [address] [place] [address] 03/26/2024 1:30 PM CDT Therapy Visit [address] [phone] Danya You, AMAIRANI [address] [address] Isabel Beaulieu, JAIMIE [address] [address] 03/26/2024 2:30 PM CDT Therapy Visit [address] [phone] Danya You, AMAIRANI [address] [place] [address] Charis Chacon, [facility] [address] [place] [address] 03/26/2024 3:30 PM CDT Therapy Visit [address] [phone] Danya You, PA [address] [place] [address] Delicia George, PT [facility] [address] [place] [address] 04/02/2024 2:15 PM CDT Therapy Visit [address] [address]314 Danya You, PA [address] [place] [address] Isabel Beaulieu OTR [address] [address] 04/02/2024 3:15 PM CDT Therapy Visit [address] [phone] Danya You, PA [address] [place] [address] Charis Chacon, [facility] [address] [place] [address] 04/02/2024 4:15 PM CDT Therapy Visit [address] [phone] Danya You, AMAIRANI [address] [place] [address] Delicia George, PT [address] 522095 04/09/2024 3:15 PM CDT Therapy Visit [address] [phone] Danya You, PA [address] [place] [address] Charis Chacon, [facility] [address] [place] [address] 04/09/2024 4:15 PM CDT Therapy Visit [address] [phone] Danya You, PA 2450 [facility] 213 [place] [address] Delicia George, PT [address] [address] 04/15/2024 9:30 AM CDT Therapy Visit [address] [address] Danya You, PA [address] [place] [address] Danya Restrepo SLP 04/23/2024 2:30 PM CDT Therapy Visit [facility] Rehabilitation [facility] [address] [place] [address] Danya You, PA [address] [place] [address] Charis Chacon, [facility] [address] [place] [address] 06/23/2024 11:00 AM CDT Virtual Visit [facility] Mental Health & Addiction [facility] [address] [place] [address] Kristin Vázquez, [facility] 6341 [place] [address] 06/30/2024 2:00 PM CDT Virtual Visit [facility] Mental Health & Addiction [address] [address] Kristin Vázquez, [facility] [address] [place] [address] documented as of this encounter Visit Diagnoses Not on filedocumented in this encounter Additional Health Concerns Assessment Noted Time PHQ-9 Depression Total Score: 0 06/15/20 19 7:09 PM CDT documented as of this encounter Care Teams Foundry Manager Relationship Specialty Start Date End Date Yung Madrigal MD RETIRED PCP - Orthopaedics Orthopedics 08/26/12 01/20/24 Winston Villatoro OD [facility] [place] [address] [place] [address] PCP - Ophthalmology Ophthalmology 02/11/13 Denise Woodson Ra, APRN MATCH UP PERSON [address] JO[address] JULI[address] [place] [address] PCP - General Family Practice 09/21/20 Denise Woodson Ra, APRN MATCH UP PERSON [address] [place] [address] Assigned PCP 07/17/20 Usha Simon APRN MATCH UP PERSON 909 [facility] [address] Nurse Practitioner Neurological Surgery 01/24/24 Dangelo Salinas MD [address] [place] [address] Neurology 01/27/24 documented as of this encounter
--- OUTSIDE RECORDS SUMMARY | 2024-01-31 12:10 | XMS_ITS | Encounter Summary ---
Author Name Unknown Organization [place] Address [address] [place] [address]. [place] [address] Care Team Providers Care Production Machinist Name Role Phone Yung Madrigal MD Unavailable Unavailable Winston Villatoro OD Unavailable [phone] Denise Woodson Ra, APRN CASH POSTING CLERK Unavailable [phone] Denise Woodson Ra, APRN CASH POSTING CLERK Primary Care Provid er Usha Simon APRN CASH POSTING CLERK Unavailable [phone] Dangelo Salinas MD Unavailable Reason for Visit * Reason Comments Medication Refill Encounter Details Date Type Department Care Team (Late st Contact Info) Description 01/07/2023 Refill [facility] [address] [place] [phone] Denise Woodson Ra, APRN CASH POSTING CLERK [address] [place] [address] Medication Refill Social History Tobacco [...] Notes * Telephone Encounter - Karla Morales - 01/24/2023 7:21 AM CDT Mailed Letter as final attempt to schedule. Karla Villafanamount Bean Sprout Grower * Telephone Encounter - Karla Morales - 01/17/2023 8:59 AM CDT LVM requesting a call back for an appt (physical). One more attempt will be made. Karla Dossunt Bean Sprout Grower * Telephone Encounter - Arianna Lo - 01/10/2023 3:33 PM CDT Sent Zivityt message requesting a call back for an appt. Two more attempts will be made. Arianna Villafanamount Bean Sprout Grower * Telephone Encounter - Leslie Mcclellan RN [...] 0 Leslie Mcclellan RN, BSN [facility] documented in this encounter Plan of Treatment Upcoming Encounters Date Type Department Care Team (Late st Contact Info) Description 02/03/2024 8:45 AM CDT Therapy Visit [facility] Rehabilitation Services [address] [phone] Denise Woodson Ra, RN INFUSION CASH POSTING CLERK [address] [facility] [place] [address] Addis Rojas, PT [facility] [address] [place] [address] 02/04/2024 PRE VISIT [facility] Clinic [address] [phone] Raul Hoyos MD [address] [place] [address] [phone] *-*INCOMING RECORDS*-* 02/04/2024 11:00 AM CDT Virtual Visit [facility] Neurology [address] [phone] Raul Hoyos MD [address] [place] [address] [id number] 02/06/2024 8:30 AM CDT Office Visit [facility] [address] [place] [phone] Denise Woodson Ra, RN INFUSION CASH POSTING CLERK [address] [place] [address] 02/07/2024 2:00 PM CDT Therapy Visit [facility] Services [address] [phone] Danya You, PA 2450 [facility] 213 [place] [address] Charis Chacon, MUSHROOM GROWING SUPERVISOR [facility] [address] [place] [address] 02/14/2024 12:45 PM CDT Therapy Visit [address] [phone] Danya You, PA 2450 [facility] 213 [place] [address] Isabel Beaulieu, OTR [address] [address] 02/14/2024 2:00 PM CDT Therapy Visit [address] [phone] Danya You, PA 9760 [facility] [address] 722474 Charis Chacon, [facility] [address] [place] [address] 02/14/2024 2:45 PM CDT Therapy Visit [address] [phone] Danya You, PA [address] 666054 Maria Eugenia Nguyen, PT 2155 [place] [address] 02/17/2024 2:45 PM CDT Therapy Visit [address] [phone] Danya You PA [address] [place], [place] [address] Aliya Kim, MUSHROOM GROWING SUPERVISOR [address] [facility], [address] [place] [address] 02/19/2024 3:00 PM CDT [facility] [address] [place] [address] Danya You PA [address] [place] [address] Isabel Beaulieu, OTR [facility] 150 [place] [address] 02/26/2024 2:15 PM CDT Therapy Visit [address] [phone] Danya You, AMAIRANI [address] [place] [address] Charis Chacon, [facility] [address] [place] [address] 02/26/2024 3:00 PM CDT Therapy Visit [facility] [address] [place] [address] Danya You, AMAIRANI [address] [address] Isabel Beaulieu, OTR [facility] 150 [place] [address] 02/27/2024 4:45 PM CDT Therapy Visit [facility] [address] [place] [phone] Danya You, AMAIRANI [address] [address] Vanessa Duggan, PT 03/05/2024 1:30 PM CDT Therapy Visit [address] [phone] Danya You, PA 2450 [facility] [address] [address] Isabel Beaulieu, OTR [address] [address] 03/05/2024 3:15 PM CDT Therapy Visit [address] [phone] Danya You, PA [facility] [address] [address] Charis Chacon, MUSHROOM GROWING SUPERVISOR [facility] [address] [place] [address] 03/05/2024 4:15 PM CDT Therapy Visit [address] [phone] Danya You, PA [address] [address] Delicia George, PT [facility] E[facility] [address] [place] [address] 03/11/2024 2:15 PM CDT Therapy Visit [address] [phone] Danya You, PA [address] [place] [address] Isabel Beaulieu, OTR [facility] [address] 03/11/2024 3:00 PM CDT Therapy Visit [address] [phone] Danya You PA [address] [address] Charis Chacon, [facility] [address] [place] [address] 03/11/2024 4:15 PM CDT Therapy Visit [address] [phone] Danya You PA [address] [address] Delicia George, PT [facility] [address] [place] [address] 03/17/2024 1:30 PM CDT Therapy Visit [facility] [address] [phone] Danya You, AMAIRANI [address] [place] [address] Isabel Beaulieu, OTR [facility] [address] [place] [address] 03/17/2024 2:30 PM CDT Therapy Visit [facility] [address] [place] [address] Danya You PA [address] MB [address] [place] [address] Charis Chacon, [facility] [address] [place] [address] 03/17/2024 4:00 PM CDT Therapy Visit [address] [phone] Danya You, AMAIRANI SOTO [address] [place] [address] Delicia George, PT [facility] [address] [place] [address] 03/23/2024 10:30 AM CDT Office Visit [facility] [address] [place] [address] Denise Woodson Ra, RN [facility] [address] [place], [place] [phone] 03/26/2024 1:30 PM CDT Therapy Visit [address] [phone] Danya You PA [address] MB [address] [place] [address] Isabel Beaulieu, OTJah [address] [address] 03/26/2024 2:30 PM CDT Therapy Visit [address] [address] Danya You, AMAIRANI [address] [place] [address] Charis Chacon, [facility] [address] [place] [address] 03/26/2024 3:30 PM CDT Therapy Visit [address] [phone] Danya You, PA [address] [address] Delicia George, PT [facility] [address] 8[address] 04/02/2024 2:15 PM CDT Therapy Visit [address] [phone] Danya You, PA 2450 [facility] [address] [place] [address] Isabel Beaulieu, OTR [address] [address] 04/02/2024 3:15 PM CDT Therapy Visit [address] [phone] Danya You, PA 2450 [facility] [address] [address] Charis Chacon, [facility] [address] [place] [address] 04/02/2024 4:15 PM CDT Therapy Visit [address] [address] Danya You, AMAIRANI [address] [place] [address] Delicia George, PT [address] [address] 04/09/2024 3:15 PM CDT Therapy Visit [address] [address] Danya You, AMAIRANI [address] [place] [address] Charis Chacon, MUSHROOM GROWING SUPERVISOR [facility] [address] [place] [address] 04/09/2024 4:15 PM CDT Therapy Visit [address] [address] Danya You, PA [address] [place] [address] Delicia George, PT [address] [address] 04/15/2024 9:30 AM CDT Therapy Visit [address] [phone] Danya You, PA [address] [address] Danya Restrepo, MUSHROOM GROWING SUPERVISOR 04/23/2024 2:30 PM CDT Therapy Visit [facility] Rehabilitation [facility] 150 [facility] [place] [address] Danya You, PA [address] [place] [address] Charis Chacon, [facility] [address] [place] [address] 06/23/2024 11:00 AM CDT Virtual Visit [facility] Mental Health & Addiction [facility] [address] [place] [phone] Kristin Vázquez, [facility] 6341 [place] [address] 06/30/2024 2:00 PM CDT Virtual Visit [facility] Mental Health & Addiction [place] [address] [place] [address] Kristin Vázquez, [facility] [address] [place] [address] documented as of this encounter Visit Diagnoses Diagnosis Moderate persistent asthma without complication Unspecified asthma documented in this encounter Additional Health Concerns Assessment Noted Time PHQ-9 Depression Total Score: 0 06/23/20 21 4:11 PM CDT documented as of this encounter Care Teams Production Machinist Relationship Specialty Start Date End Date Yung Madrigal MD RETIRED PCP - Orthopaedics Orthopedics 08/26/12 01/20/24 Winston Villatoro OD [facility] [place] [address] [facility] [address] [place] [address] PCP - Ophthalmology Ophthalmology 02/11/13 Denise Woodson Ra, APRN CASH POSTING CLERK [address] [place] [address] PCP - General Family Practice 09/21/20 Denise Woodson Ra, APRN CASH POSTING CLERK [address] [place] [address] Assigned PCP 07/17/20 Usha Simon APRN CASH POSTING CLERK 9 [facility]2121[place] [address] Nurse Practitioner Neurological Surgery 01/24/24 Dangelo Salinas MD [address] [place] [address] Neurology 01/27/24 documented as of this encounter
--- OUTSIDE RECORDS SUMMARY | 2024-01-31 12:10 | XMS_ITS | Encounter Summary ---
Author Name Unknown Organization [employer] Address [address] [place] [address]. [place] [address] Care Team Providers Care Truck Body Repairer Name Role Phone Yung Madrigal MD Unavailable Unavailable Winston Villatoro OD Unavailable Denise Woodson Ra, APRN IRON PELLET TESTER Unavailable [phone]- [phone] Denise Woodson Ra, APRN IRON PELLET TESTER Primary Care Provid er Usha Simon APRN IRON PELLET TESTER Unavailable [phone]- [phone] Dangelo Salinas MD Unavailable Reason for Visit * Reason Comments Medication Refill Encounter Details Date Type Department Care Team (Late st Contact Info) Description 06/11/2021 Refill [facility] [address] [place] [address] [address] [place] [address] Denise Woodson Ra, BARRERA IRON PELLET TESTER [address] [place], [place] [phone] Medication Refill Social History Tobacco Use Types [...] 02/03/2024 8:45 AM CDT Therapy Visit [address] [phone] Denise Woodson Ra, SEWAGE TREATMENT PLANT OPERATOR IRON PELLET TESTER [address] [place] [address] Addis Rojas, PT [facility] AMAIRANI [address] [place], [place] [phone] 02/04/[address] [facility] Neurology [address] [phone] Raul Hoyos MD [address] [place] [address] [id number] *-*INCOMING RECORDS*-* 02/04/2024 11:00 AM CDT Virtual Visit [facility] Neurology [address] [phone] Raul Hoyos MD [address] [place] [address] [phone] 02/06/2024 8:30 AM CDT Office Visit [facility] [address] [place] [phone] Denise Woodson Ra, SEWAGE TREATMENT PLANT OPERATOR IRON PELLET TESTER [address] [place] [address] 02/07/2024 2:00 PM CDT Therapy Visit [address] [phone] Danya You, AMAIRANI 2450 [facility] [address] [place], [place] [address] Charis Chacon, JUAN [facility] [address] [place] [address] 02/14/2024 12:45 PM CDT Therapy Visit [facility] 150 [place] [phone] Danya You, PA [address] [place] [address] Isabel Beaulieu, OTR [address] [address] 02/14/2024 2:00 PM CDT Therapy Visit [address] [phone] Danya You, AMAIRANI [address] [place] [address] Charis Chacon, [facility] [address] [place] [address] 02/14/2024 2:45 PM CDT Therapy Visit [address] [phone] Danya You, PA [address] [place] [address] Maria Eugenia Nguyen, PT 2155 [place] [address] 02/17/2024 2:45 PM CDT Therapy Visit [facility] 150 [place] [phone] Danya You, PA [address] [place] [address] Aliya Kim, RN GYNECOLOGY [address] [facility], [address] [place], [place] [address] 02/19/2024 3:00 PM CDT Therapy [facility] 150 [place] [phone] Danya You, PA [address] [place] [address] Isabel Beaulieu, SIMBAR VALARIE [address] [address] 02/26/2024 2:15 PM CDT Therapy Visit [facility] 150 [place] [phone] Danya You, PA [address] [address] Charis Chacon, JUAN [facility] [address] [place] [address] 02/26/2024 3:00 PM CDT Therapy Visit [facility] 150 [place] [phone] [place], [place] [address] [address] Isabel Beaulieu, OTR [facility] 150 [place] [address] 02/27/2024 4:45 PM CDT Therapy Visit [facility] 150 [place] [address] Danya You, PA [address] [address] Vanessa Duggan, PT 03/05/2024 1:30 PM CDT Therapy Visit [address] [phone] Danya Yuo, PA [address] [address] Isabel Beaulieu OTJah [address] [address] 03/05/2024 3:15 PM CDT Therapy Visit [address] [phone] Danya You, PA [address] [address] Charis Chacon, [facility] [address] [place] [address] 03/05/2024 4:15 PM CDT Therapy Visit [address] [phone] Danya You, PA [address] 850054 Delicia George, PT [facility] [address] [place] [address] 03/11/2024 2:15 PM CDT Therapy Visit [address] [place] [phone] Danya You, AMAIRANI [address] [place] [address]444 Isabel Beaulieu, OTR [facility] [address] [place] [address] 03/11/2024 3:00 PM CDT Therapy [facility] 150 [place] [phone] Danya You, AMAIRANI [address] [address] Charis Chacon, [facility] [address] [place] [address] 03/11/2024 4:15 PM CDT Therapy Visit [facility] 150 [place] [phone] Danya You, AMAIRANI 2450 [facility] JIE [address] [address] Delicia George, PT [facility] [address] [place] [address] 03/17/2024 1:30 PM CDT [facility] [address] [place] [phone] Danya You, AMAIRANI Pending sale to [facility] [address] [address] Isabel Beaulieu OTR [facility] [address] [place] [address] 03/17/2024 2:30 PM CDT Therapy Visit [facility] 150 [place] [phone] Danya You, PA [address] [address] Charis Chacon, [facility] [address] [place] [address] 03/17/2024 4:00 PM CDT Therapy Visit [address] [phone] [place] [address] 966414 Delicia George, PT [facility] [address] [place] [address] 03/23/2024 10:30 AM CDT Office Visit [facility] [address] [place] [address] Denise Woodson Ra, SEWAGE TREATMENT PLANT OPERATOR [facility] [address] [place], [place] 27786[address] 03/26/2024 1:30 PM CDT Therapy Visit [address] [phone] Danya You, AMAIRANI 7700 [facility] [address] [address] Isabel Beaulieu, OTR [address] [address] 03/26/2024 2:30 PM CDT Therapy Visit [address] [phone] Danya You, PA 2450 [facility] JIE S[address] [place] [address] Charis Chacon, [facility] [address] [place] [address] 03/26/2024 3:30 PM CDT Therapy Visit [address] [phone] Danya You, PA [address] [address] Delicia George, PT [facility] [address] [place] [address] 04/02/2024 2:15 PM CDT Therapy Visit [address] [phone] Danya You, PA [address] [address] Isabel Beaulieu OTR [address] [address] 04/02/2024 3:15 PM CDT Therapy Visit [address] [phone] Danya You, PA [address] [address] Charis Chacon, [facility] [address] [place] [address] 04/02/2024 4:15 PM CDT Therapy Visit [address] [phone] Danya You, AMAIRANI [address] [place] [address] Delicia George, PT [address] [address] 04/09/2024 3:15 PM CDT Therapy Visit [address] [phone] Danya You, PA [address] [place] [address] Charis Chacon, [facility] [address] [place] [address] 04/09/2024 4:15 PM CDT Therapy Visit [address] [phone] Danya You, PA 2450 [facility] 213 [place] [address] Delicia George, PT [address] [address] 04/15/2024 9:30 AM CDT Therapy Visit [address] [address] Danya You PA [address] [place] [address] Danya Restrepo SLP 04/23/2024 2:30 PM CDT Therapy Visit [facility] 150 [place] [address] Danya You PA [address] [place] [address] Charis Chacon, JUAN [facility] [address] [place] [address] 06/23/2024 11:00 AM CDT Virtual Visit [facility] [address] [place] [address] Kristin Vázquez, [facility] 6341 [place] [address] 06/30/2024 2:00 PM CDT Virtual Visit [facility] [place] [address] [place] [address] Kristin Vázquez, [facility] 6341 [place] [address] documented as of this encounter Visit Diagnoses Diagnosis Insomnia, unspecified type documented in this encounter Additional Health Concerns Assessment Noted Time PHQ-9 Depression Total Score: 0 01/05/20 21 9:31 AM CDT documented as of this encounter Care Teams Truck Body Repairer Relationship Specialty Start Date End Date Yung Madrigal MD RETIRED PCP - Orthopaedics Orthopedics 08/26/12 01/20/24 Winston Villatoro OD [facility] Dwarf [address] [place] [address] PCP - Ophthalmology Ophthalmology 02/11/13 Denise Woodson Ra, APRN IRON PELLET TESTER [address] [place] [address] PCP - General Family Practice 09/21/20 Denise Woodson Ra, APRN IRON PELLET TESTER [address] [place] [address] Assigned PCP 07/17/20 Usha Simon APRN IRON PELLET TESTER [address] [facility] [address] Nurse Practitioner Neurological Surgery 01/24/24 Dangelo Salinas MD [address] [place], [place] [phone] Neurology 01/27/24 documented as of this encounter
--- OUTSIDE RECORDS SUMMARY | 2024-01-31 12:10 | XMS_ITS | Encounter Summary ---
Author Name Unknown Organization [facility] Address [address] [place] [address]. [place] [address] Care Team Providers Care Logistics Operations Manager Name Role Phone Yung Madrigal MD Unavailable Unavailable Winston Villatoro OD Unavailable [phone] Denise Woodson Ra, APRN COURT WORKER Unavailable [phone]- [phone] Denise Woodson Ra, APRN COURT WORKER Primary Care Provid er Usha Simon APRN COURT WORKER Unavailable [phone]- [phone] Dangelo Salinas MD Unavailable Reason for Visit * Reason Onset Date Comments Medication Request 04/20/2021 escitalopram (LEXAPRO) 10 MG tablet Encounter Details Date Type Department Care Team (Late st Contact Info) Description 04/20/2021 [facility] Medical Advice [facility] [address] [place] [address] Denise Woodson Ra, APRN COURT WORKER [address] [place] [address] Medication Request (escitalopram (LEXAPRO)... Social [...] have her set up virtual visit with [facility] in the next few weeks. If she [...] Description 02/03/2024 8:45 AM CDT Therapy Visit [address] [address] Denise Woodson Ra, DOMESTIC FREIGHT FORWARDER COURT WORKER [address] [facility] [place] [address] Addis Rojas, PT [facility] [address] [place] [address] 02/04/2024 PRE VISIT [facility] Neurology [address] [phone] Raul Hoyos MD [address] [place] [address] *-*INCOMING RECORDS*-* 02/04/2024 11:00 AM CDT Virtual Visit [facility] Neurology [address] [phone] Raul Hoyos MD [address] [place] [address] 02/06/2024 8:30 AM CDT Office Visit [facility] [address] [place] [phone] Denise Woodson Ra, DOMESTIC FREIGHT FORWARDER COURT WORKER [address] [place] [address] 02/07/2024 2:00 PM CDT Therapy Visit [address] [place] [phone] Danya You, AMAIRANI [address] [place] [address] Charis Chacon, [facility]AN [facility] [address] [place] [address] 02/14/2024 12:45 PM CDT Therapy Visit [address] [phone] Danya You, AMAIRANI [address] [place] [address] Isabel Beaulieu, OTR [address] [address] 02/14/2024 2:00 PM CDT Therapy Visit [address] [phone] Danya You, PA [address] [place] [address] Charis Chacon, JUAN [facility] [address] [place] [address] 02/14/2024 2:45 PM CDT Therapy Visit [address] [phone] Danya You, PA [address] [place] [address] Maria Eugenia Nguyen, PT 2155 [place] [address] 02/17/2024 2:45 PM CDT [facility] 150 [facility] [place] [address] Danya You, AMAIRANI 2450 [facility] 213 [place] [address] Aliya Kim, LEGAL COLLECTOR [address] [facility], [address] [place] [address] 02/19/2024 3:00 PM CDT Therapy Visit [facility] [address] [place] [address] Danya You, AMAIRANI 2450 [facility] [address] [address] Isabel Beaulieu OTR [facility] 150 [place] [address] 02/26/2024 2:15 PM CDT Therapy Visit [facility] [address] [place] [address] Danya You, PA [facility] [address] [address] Charis Chacon, [facility]AN [facility] [address] [place] [address] 02/26/2024 3:00 PM CDT Therapy Visit [facility] [address] [place] [phone] Danya You, PA 2450 [facility] 213 [place] [address] Isabel Beaulieu OTR [facility] 150 [place] [address] 02/27/2024 4:45 PM CDT Therapy Visit [address] [phone] Danya You, PA 2450 [facility] 213 [place], [place] [address] Vanessa Duggan, PT 03/05/2024 1:30 PM CDT Therapy Visit [address] [phone] Danya You, AMAIRANI 2450 [facility] [address] [address] Isabel Beaulieu OTJah [address] [address] 03/05/2024 3:15 PM CDT Therapy Visit [address] [phone] Danya You, PA [facility] [address] [address] Charis Chacon, [facility] [address] [place] [address] 03/05/2024 4:15 PM CDT Therapy Visit [address] [phone] Danya You, PA [address] [address] Delicia George, PT [facility] [address] [address] 03/11/2024 2:15 PM CDT Therapy Visit [address] [phone] Danya You, PA [address] [place] [address] Isabel Beaulieu, OTR [address] [address] 03/11/2024 3:00 PM CDT Therapy Visit [address] [address] Danya You, PA [address] [place] [address] Charis Chacon, LEGAL COLLECTOR [facility] [address] [place] [address] 03/11/2024 4:15 PM CDT Therapy Visit [address] [phone] Danya You, PA [address] [place] [address] Delicia George, PT [facility] [address] [place] [address] 03/17/2024 1:30 PM CDT Therapy Visit [address] [phone] Danya You, PA [address] [address] Isabel Beaulieu, OTR [address] [address] 03/17/2024 2:30 PM CDT Therapy Visit [address] [phone] Danya You, PA 2450 [facility] [address] [address] Charis Chacon, LEGAL COLLECTOR [facility] [address] [place] [address] 03/17/2024 4:00 PM CDT Therapy Visit [address] [phone] Danya You, PA [address] 2944[address] Delicia George, PT [facility] [address] [place] [address] 03/23/2024 10:30 AM CDT Office Visit [facility] [address] [place] [phone] Denise Woodson Ra, DOMESTIC FREIGHT FORWARDER COURT WORKER [address] [place], [place] [address] 03/26/2024 1:30 PM CDT Therapy Visit [address] [phone] Danya You, PA [address] 611264 Isabel Beaulieu, OTR [facility] [address] [place] [address] 03/26/2024 2:30 PM CDT Therapy Visit [facility] [address] [place] [phone] Danya You, PA [address] [address] Charis Chacon, [facility] [address] [place] [address] 03/26/2024 3:30 PM CDT Therapy Visit [address] [phone] Danya You, PA [address] [address] Delicia George, PT [facility] [address] [address] 04/02/2024 2:15 PM CDT Therapy Visit [facility] [address] [place] [phone] Danya You, PA [address] [address] Isabel Beaulieu, OTR [facility] [address] [place] [address] 04/02/2024 3:15 PM CDT Therapy [facility] [address] [place] [address] Danya You PA [address] [place] [address] [facility] [address] [place] [address] 04/02/2024 4:15 PM CDT Therapy Visit [address] [address] Danya You PA [address] [place] [address] Delicia George, PT [address] 4205[address] 04/09/2024 3:15 PM CDT Therapy Visit [address] [address] Danya You, AMAIRANI [address] [place] [address] Charis Chacon, [facility]AN [facility] [address] [place] [address] 04/09/2024 4:15 PM CDT Therapy Visit [address] [phone] Danya You PA [address] [place] [address] Delicia George, PT [address] [address]40[address] 04/15/2024 9:30 AM CDT Therapy Visit [facility] [address] [place] [address] Danya You PA [address] [place] [address] Danya Restrepo LEGAL COLLECTOR 04/23/2024 2:30 PM CDT Therapy Visit [address] [phone] Danya You, PA [address] [place] [address] Charis Chacon SLP [facility] [address] [place] [address] 06/23/2024 11:00 AM CDT Virtual Visit [facility] Mental Health & Addiction [facility] [address] [place] [address] Kristin Vázquez, [facility] 6341 [place] [address] 06/30/2024 2:00 PM CDT Virtual Visit [facility] 6401 [place] [address] Kristin Vázquez, [facility] 4941 [place] [address] documented as of this encounter Visit Diagnoses Diagnosis Generalized anxiety disorder Mild recurrent major depression (H24) Major depressive disorder, recurrent episode, mild documented in this encounter Additional Health Concerns Assessment Noted Time PHQ-9 Depression Total Score: 0 01/05/20 21 9:31 AM CDT documented as of this encounter Care Teams Logistics Operations Manager Relationship Specialty Start Date End Date Yung Madrigal MD RETIRED PCP - Orthopaedics Orthopedics 08/26/12 01/20/24 Winston Villatoro OD [facility] [place] [address] [place] [address] PCP - Ophthalmology Ophthalmology 02/11/13 Denise Woodson Ra DOMESTIC FREIGHT FORWARDER COURT WORKER [address] [place] [id number] PCP - General Family Practice 09/21/20 Denise Woodson Ra, APRN COURT WORKER [address] [place] [id number] Assigned PCP 07/17/[address]sha [address]N [address] WORKER [address] [facility] [id number] [place] [address] Nurse Practitioner Neurological Surgery 01/24/24 Dangelo Salinas MD [address] [place] [address] Neurology 01/27/24 documented as of this encounter
--- OUTSIDE RECORDS SUMMARY | 2024-01-31 12:10 | XMS_ITS | Encounter Summary ---
Author Name Unknown Organization [place] Address [address] [place] [address]. [place] [address] Care Team Providers Care Respiratory Therapy Aide Name Role Phone Yung Madrigal MD Unavailable Unavailable Winston Villatoro OD Unavailable [phone] Denise Woodson Ra, APRN MACHINE HEEL SEAT FITTER Unavailable [phone] Denise Woodson Ra PODIATRIST ASSISTANT MACHINE HEEL SEAT FITTER Primary Care Provid er Usha Simon PODIATRIST ASSISTANT MACHINE HEEL SEAT FITTER Unavailable [phone] Dangelo Salinas MD Unavailable Reason for Visit * Reason Onset Date Comments MyChart Communication 06/08/2021 Abdominal pain Encounter Details Date Type Department Care Team (Late st Contact Info) Description 06/08/2021 MyC Medical Advice [facility] [address] [place] [address] Denise Woodson Ra, APRN MACHINE HEEL SEAT FITTER [address] [place] [address] MyChart Communication (Abdominal pain) Social [...] Description 02/03/2024 8:45 AM CDT Therapy Visit [address] [phone] Denise Woodson Ra, PODIATRIST ASSISTANT MACHINE HEEL SEAT FITTER [address] [place], [place] [phone] Addis Rojas, PT [facility] [address] [place] [address] 02/04/2024 PRE VISIT [facility] Neurology [address] [phone] Raul Hoyos MD [address] [place] [address] 704875 *-*INCOMING RECORDS*-* 02/04/2024 11:00 AM CDT Virtual Visit [facility] Neurology [address] [phone] Raul Hoyos MD [address] [place] [address] 02/06/2024 8:30 AM CDT Office Visit [facility] [address] [place] [phone] Denise Woodson Ra, PODIATRIST ASSISTANT MACHINE HEEL SEAT FITTER [address] [place], [place] 1470[address] 02/07/2024 2:00 PM CDT Therapy Visit [address] [phone] Danya You, PA [address] [place] [address] Chrais Chacon, JUAN [facility] [address] [place] [address] 02/14/2024 12:45 PM CDT Therapy Visit [address] [phone] Danya You, PA [address] [place] [address] Isabel Beaulieu OTR [address] [address] 02/14/2024 2:00 PM CDT Therapy Visit [address] [phone] D[place], PA [address] [place] [address] Charis Chacon, JUAN [place] [address] [place] [address] 02/14/2024 2:45 PM CDT Therapy Visit [address] [phone] Danya You, PA [address] [place], [place] [address]244 Maria Eugenia Nguyen, PT [address] [place] [address] 02/17/2024 2:45 PM CDT Therapy Visit [address] [phone] Danya You PA [address] CHARLES [address] [place] [address] Aliya Kim, DIGITAL PRESS OPERATOR [address] [facility] [address] [place] [address] 02/19/2024 3:00 PM CDT Therapy Visit [facility] [address] [place] [phone] Danya You PA [address] [address] Isabel Beaulieu, OTR [facility] [address] [place] [address] 02/26/2024 2:15 PM CDT Therapy [facility] [address] [place] [address] Danya You, AMAIRANI [address] [address] Charis Chacon, JUAN [facility] [address] [place] [address] 02/26/2024 3:00 PM CDT Therapy Visit [facility] 150 [place] [address] Danya You, AMAIRANI [address] CHARLES [address] [place] [address] Isabel Beaulieu, OTR [facility] [address] [place] [address] 02/27/2024 4:45 PM CDT Therapy Visit [facility] 150 [place] [address] Danya You, PA [address] [place] [address] Vanessa Duggan, PT 03/05/2024 1:30 PM CDT Therapy Visit [address] [phone] Danya You, PA [address] [address] Isabel Beaulieu OTJah [address] [address] 03/05/2024 3:15 PM CDT Therapy Visit [address] [address] Danya You, PA [address] 574214 Charis Chacon, [facility] [address] [place] [address] 03/05/2024 4:15 PM CDT Therapy Visit [address] [phone] Danya You, PA [address] 818[address] Delicia George, PT [facility] [address] [address] 03/11/2024 2:15 PM CDT Therapy Visit [address] [phone] Danya You, AMAIRANI [address] [address] Isabel Beaulieu, OTR [facility] [address] [address] 03/11/2024 3:00 PM CDT Therapy Visit [address] [phone] Danya You, AMAIRANI [facility] [address] [address] Charis Chacon, [facility] [address] [place] [address] 03/11/2024 4:15 PM CDT Therapy Visit [address] [phone] Danya You, AMAIRANI [facility] [address] [address] Delicia George, PT [facility] [address] [place] [address] 03/17/2024 1:30 PM CDT Therapy Visit [address] [phone] Danya You PA [facility] [address] [address] Isabel Beaulieu, OTR [facility] [address] [place] [address] 03/17/2024 2:30 PM CDT Therapy Visit [facility] 150 [place] [phone] Danya You, PA [address] [address] Charis Chacon, J[facility]AN [facility] [address] [place] [address] 03/17/2024 4:00 PM CDT Therapy Visit [address] [phone] Danya You, PA [address] 2115[address] Delicia George, PT [facility] [address] [place] [address] 03/23/2024 10:30 AM CDT Office Visit [facility] [address] [place] [address] Denise Woodson Ra, PODIATRIST ASSISTANT MACHINE HEEL SEAT FITTER [address] [place] [address] 03/26/2024 1:30 PM CDT Therapy Visit [address] [phone] Danya You, PA 2450 [facility] [address] 696984 Isabel Beaulieu, OTR [facility] 150 [place] [address] 03/26/2024 2:30 PM CDT Therapy Visit [facility] [address] [place] [phone] Danya You, PA [address] [place] [address] Charis Chacon, J[facility]AN [facility] [address] [place] [address] 03/26/2024 3:30 PM CDT Therapy Visit [address] [phone] Danya You, PA [address] [place] [address] Delicia George, PT [facility] [address] [place] [address] 04/02/2024 2:15 PM CDT Therapy Visit [address] [phone] Danya You, PA [address] [place] [address] Isabel Beaulieu, OTR VAL[facility] GLENDIV[facility] [address] [place] [address] 04/02/2024 3:15 PM CDT Therapy Visit [facility] 150 [place] [address] Danya You, PA [address] [place] [address] Charis Chacon, J[facility] [address] [place] [address] 04/02/2024 4:15 PM CDT Therapy Visit [address] [address] Danya You, PA [address] [address] [place] [address] Delicia George, PT [address] [address] 04/09/2024 3:15 PM CDT Therapy Visit [address] [address] Danya You, PA [address] [facility] [address] MB [address] [place] [address] Charis Chacon, [facility] [address] [place] [address] 04/09/2024 4:15 PM CDT Therapy Visit [address] [address] Danya You, PA [address] MB [address] [place] [address] Delicia George, PT [address] [address] 04/15/2024 9:30 AM CDT Therapy Visit [facility] [address] [place] [address] Danya You, PA [address] [place] [address] Danya Restrepo SLP 04/23/2024 2:30 PM CDT Therapy Visit [facility] 150 [place] [address] Danya You, PA [address] [place] [address] Charis Chacon, [facility] [address] [place] [address] 06/23/2024 11:00 AM CDT Virtual Visit [facility] [address] [place] [address] Kristin Vázquez, [facility] [address] [place] [address] 06/30/2024 2:00 PM CDT Virtual Visit [facility] [place] [address] [place] [address] Kristin Vázquez, [facility] [address] [place] [address] documented as of this encounter Visit Diagnoses Not on filedocumented in this encounter Additional Health Concerns Assessment Noted Time PHQ-9 Depression Total Score: 0 01/05/20 21 9:31 AM CDT documented as of this encounter Care Teams Respiratory Therapy Aide Relationship Specialty Start Date End Date Yung Madrigal MD RETIRED PCP - Orthopaedics Orthopedics 08/26/12 01/20/24 Winston Villatoro OD [facility] [address] [facility] [address] [place], [place] [id number] PCP - Ophthalmology Ophthalmology 02/11/13 Denise Woodson Ra, APRN MACHINE HEEL SEAT FITTER [address] [place] [id number] PCP - General Family Practice 09/21/20 Denise Woodson Ra, APRN MACHINE HEEL SEAT FITTER [address] [place] [address] Assigned PCP 07/17/20 Usha Simon APRN MACHINE HEEL SEAT FITTER 9 [facility]2121[place], [place] 252735 Nurse Practitioner Neurological Surgery 01/24/24 Dangelo Salinas MD [address] [facility] 200 [place] [address] Neurology 01/27/24 documented as of this encounter
--- OUTSIDE RECORDS SUMMARY | 2024-01-31 12:11 | XMS_ITS | Encounter Summary ---
Author Name Unknown Organization [place] Address [address] [place] [address] Care Team Providers Care Cyber Systems Administrator Name Role Phone Timmy Perez MD Unavailable Unavailable Yung Madrigal MD Unavailable Unavailable Winston Villatoro OD Unavailable [phone] Apple Sykes MD Primary Care Provider [phone] Westley Bates MD Unavailable [phone] Alessandra Cabrales APRN CUTTER INSPECTOR Primary Car e Provider Serum, Clara Garland MD Primary Care Provider Serum, Clara Garland MD Unavailable [phone] Serum, Clara Garland MD Unavailable [phone] Denise Woodson Ra, APRN CUTTER INSPECTOR Unavailable + [phone] Denise Woodson Ra, APRN CUTTER INSPECTOR Primary Care Provid er Usha Simon APRN CUTTER INSPECTOR Unavailable + [phone] Dangelo Salinas MD Unavailable Reason for Visit * Reason Onset Date Comments MyChart Communication 05/30/2013 Encounter Details Date Type Department Care Team (Latest Contact Info) Description 05/30/2013 MyC Medical Advice [facility] [address] [place] [phone] Apple Sykes MD [address] [place] [address] MyChart Communication Social History Tobacco Use Types [...] Therapy Visit [facility] [address] [phone] Denise Woodson Ra, PROGRAM PROPOSALS COORDINATOR CUTTER INSPECTOR [address] [place], [place] [phone] Addis Rojas, PT [facility] [address] [place], [place] [phone] 02/04/2024 PRE VISIT [facility] Neurology [address] [address] Raul Hoyos MD [address] [place] [address] 811115 *-*INCOMING RECORDS*-* 02/04/2024 11:00 AM CDT Virtual Visit [facility] [address] [address] Raul Hoyos MD [address] [place] [address] 275045 02/06/2024 8:30 AM CDT Office Visit [facility] [address] [place] [phone] Denise Woodson Ra, PROGRAM PROPOSALS COORDINATOR CUTTER INSPECTOR [address] [place] [address] 02/07/2024 2:00 PM CDT Therapy Visit [facility] 150 [place] [address] Danya You, AMAIRANI [address] [place] [address] Charis Chacon, JUAN [facility] [address] [place] [address] 02/14/2024 12:45 PM CDT Therapy Visit [address] [address] Danya You, AMAIRANI Muller[address] [place] [address] Isabel Beaulieu, OTR [facility] [address] [place] [address] 02/14/2024 2:00 PM CDT Therapy Visit [address] [phone] Danya You, PA [address] [place] [address] Charis Chacon, J[facility]AN [facility] [address] [place] [address] 02/14/2024 2:45 PM CDT Therapy Visit [address] [phone] Danya You, AMAIRANI [address] [place] [address] Maria Eugenia Nguyen, PT 2[address] [place] [address] 02/17/2024 2:45 PM CDT Therapy Visit [facility] 150 [place] [address] Danya You, PA [address] [place] [address] Aliya Kim, LANDSCAPE MAINTENANCE INTERNSHIP [address] [facility] 200 [place] [address] 02/19/2024 3:00 PM CDT Therapy Visit [facility] 150 [place] [address] Danya You, PA [address] [place] [address] Isabel Beaulieu, OTR [address] [address] 02/26/2024 2:15 PM CDT Therapy Visit [facility] 150 [place] [phone] Danya You, PA 2450 [facility] [address] [place] [address] Charis Chacon, J[facility]AN [facility] [address] [place] [address] 02/26/2024 3:00 PM CDT Therapy Visit [facility] 150 [place] [address]57[address] Danya You PA 2450 [facility] [address] [place] [address] Isabel Beaulieu, OTR [facility] [address] [place] [address] 02/27/2024 4:45 PM CDT Therapy Visit [facility] 150 [place] [phone] Danya You, PA [address] [address] Vanessa Duggan, PT 03/05/2024 1:30 PM CDT Therapy Visit [facility] 150 [place] [phone] Danya You, AMAIRANI 2450 [facility] [address] [address] Isabel Beaulieu, OTR [facility] [address] [place] [address] 03/05/2024 3:15 PM CDT Therapy Visit [facility] [address] [place] [address] Danya You, PA [address] [address] Charis Chacon, J[facility]AN [facility] [address] [place] [address] 03/05/2024 4:15 PM CDT Therapy Visit [facility] [address] [place] [phone] Danya You PA [address] [place] [address] Delicia George, PT [address] [address] 03/11/2024 2:15 PM CDT Therapy Visit [facility] [address] [place] [address] Danya You, PA [address] [address] Isabel Beaulieu, JAIMIE [address] [address] 03/11/2024 3:00 PM CDT Therapy Visit [address] [address] Danya You, PA [address] [address] Charis Chacon, [facility] [address] [place] [address] 03/11/2024 4:15 PM CDT Therapy Visit [address] [phone] Danya You, PA [address] [place] [address] Delicia George, PT [address] [address] 03/17/2024 1:30 PM CDT Therapy Visit [address] [phone] Danya You, AMAIRANI [address] [address] Isabel Beaulieu, OTR [address] [address] 03/17/2024 2:30 PM CDT Therapy Visit [address] [phone] Danya You, PA [address] [address] Charis Chacon SLP [facility] [address] [place] [address] 03/17/2024 4:00 PM CDT Therapy Visit [address] [phone] Danya You, PA [address] [place] [address] Delicia George, PT [facility] [address] [place] [address] 03/23/2024 10:30 AM CDT Office Visit [facility] [address] [place] [address] Denise Woodson Ra, PROGRAM PROPOSALS COORDINATOR CUTTER INSPECTOR [address] [place], [place] 865[address]68 03/26/2024 1:30 PM CDT Therapy Visit [facility] 150 [place] [phone] Danya You, AMAIRANI [address] [address] Isabel Beaulieu, OTR [address] [address] 03/26/2024 2:30 PM CDT Therapy Visit [address] [phone] Danya You, AMAIRANI [facility]0 [address] [place] [address] [address] Charis Chacon, LANDSCAPE MAINTENANCE INTERNSHIP [facility] [address] [place] [address] 03/26/2024 3:30 PM CDT Therapy Visit [address] [phone] Danya You, AMAIRANI [facility] [address] [place] [address] [address] Delicia George, PT [facility] [address] [address] 04/02/2024 2:15 PM CDT Therapy Visit [address] [phone] Danya You PA [facility] [address] [address] [address] Isabel Beaulieu, OTR [facility] [address] [place] [address] 04/02/2024 3:15 PM CDT Therapy Visit [address] [phone] Danya You, AMAIRANI [address] [place] [address] Charis Chacon SLP [facility] [address] [place] [address] 04/02/2024 4:15 PM CDT Therapy Visit [address] [phone] Danya You, AMAIRANI [address] [place] [address] 447624 Delicia George, PT [facility] [address] [place] [address] 04/09/2024 3:15 PM CDT Therapy Visit [address] [phone] Danya You, PA [address] [place] [address] Charis Chacon, JUAN [facility] [address] [place], [place] [address] 04/09/2024 4:15 PM CDT Therapy Visit [address] [phone] Danya You, AMAIRANI [address] [place] [address] Delicia George, PT [facility] [address] [place] [address] 04/15/2024 9:30 AM CDT Therapy Visit [address] [address] Danya You, PA [address] [place] [address] Danya Restrepo, [employer] 04/23/2024 2:30 PM CDT Therapy Visit [address] [phone] Danya You, PA [address] [place] [address] Charis Chacon, JUAN [facility] [address] [place] [address] 06/23/2024 11:00 AM CDT Virtual Visit [facility] [address] [address] Kristin Vázquez, [facility] [address] [place] [address] 06/30/2024 2:00 PM CDT Virtual Visit [facility] [address]01 [place] [address] Kristin Vázquez, [facility] 2741 [place] [address] documented as of this encounter Visit Diagnoses Not on filedocumented in this encounter Care Teams Cyber Systems Administrator Relationship Specialty Start Date End Date Timmy Perze MD PCP - Obstetrics/Gynecology 03/02/08 08/07/15 Yung Madrigal MD RETIRED PCP - Orthopaedics Orthopedics 08/26/12 01/20/24 Winston Villatoro, AMELIE [facility] [place] [address] [place] [address] PCP - Ophthalmology Ophthalmology 02/11/13 Apple Sykes MD [facility] [place] [address] [place] [address] PCP - General Family Practice 05/04/13 10/25/16 Westley Bates MD XXX RETIRED XXX [address] [place] [address] PCP - ENT Otolaryngology 05/14/13 07/28/[address] [facility] [address] APRN CUTTER INSPECTOR [address] [facility] [place] [address] PCP - General Nurse Practitioner 10/26/16 02/06/17 Clara Cornell MD [address] [facility] [place] [address] PCP - General Internal Medicine 02/07/17 09/20/20 Clara Cornell [facility] [facility] [address] PCP - Assigned PCP 01/17/17 11/18/18 Denise Woodson Ra, APRN CUTTER INSPECTOR [address] [place] [address] PCP - General Family Practice 09/21/20 Clara Cornell MD 8675 [place] [address] Assigned PCP 01/17/17 07/16/20 Denise Woodson Ra, APRN CUTTER INSPECTOR [address] [place] [facility] [address] Assigned PCP 07/17/20 Usha Simon APRN CUTTER INSPECTOR 9 [facility]2[place] [address] Nurse Practitioner Neurological Surgery 01/24/24 Dangelo Salinas MD [address] [place] [address] Neurology 01/27/24 documented as of this encounter
--- OUTSIDE RECORDS SUMMARY | 2024-01-31 12:11 | XMS_ITS | Encounter Summary ---
Author Name Unknown Organization [place] Address [address] [place] [address] Care Team Providers Care Restaurant Crew Name Role Phone Timmy Perez MD Unavailable Unavailable Yung Madrigal MD Unavailable Unavailable Winston Villatoro OD Unavailable [phone] Apple Sykes MD Primary Care Provider [phone] Westley Bates MD Unavailable [phone] Alessandra Cabrales APRN NET WEB DEVELOPER Primary Car e Provider Serum, Clara Garland MD Primary Care Provider Serum, Clara Garland MD Unavailable [phone] Serum, Clara Garland MD Unavailable [phone] Denise Woodson Ra, APRN NET WEB DEVELOPER Unavailable + [phone] Denise Woodson Ra, APRN NET WEB DEVELOPER Primary Care Provid er Usha Simon APRN NET WEB DEVELOPER Unavailable + [phone] Dangelo Salinas MD Unavailable Encounter Details Date Type Department Care Team (Late st Contact Info) Description 05/06/2013 MyC Medical Advice [facility] in [facility] [address] [place] [address] Apple Sykes MD [address] [place] [phone] Social History Tobacco Use Types Packs/Day Years [...] Therapy Visit [facility] Rehabilitation Services [address] [phone] Denise Woodson Ra, COMMISSION AUDITOR NET WEB DEVELOPER [address] [place], [place] [phone] Addis Rojas, PT [facility] [address] [place] [address] 02/04/[address] [facility] Neurology [address] [phone] Raul Hoyos MD [address] [place] [phone] *-*INCOMING RECORDS*-* 02/04/2024 11:00 AM CDT Virtual Visit [facility] Neurology [address] [address] Raul Hoyos MD [address] [place] [address] 059435 02/06/2024 8:30 AM CDT Office Visit [facility] [address] [place] [address] Denise Woodson Ra, COMMISSION AUDITOR NET WEB DEVELOPER [address] [place], [place] 29698[address] 02/07/2024 2:00 PM CDT Therapy Visit [address] [address] Danya You, AMAIRANI [address] [place] [address] Charis Chacon SLP [facility] [address] [place] [address] 02/14/2024 12:45 PM CDT Therapy Visit [address] [phone] Danya You, AMAIRANI [address] [place] [address] Isabel Beaulieu OTR [address] [address] 02/14/2024 2:00 PM CDT Therapy Visit [address] [phone] Danya You, PA [address] [place] [address] Charis Chacon, [facility] [address] [place] [address] 02/14/2024 2:45 PM CDT Therapy Visit [address] [phone] Danya You PA [address] [facility] [address] [place] [address] Maria Eugenia Nguyen, PT 2155 [place] [address] 02/17/2024 2:45 PM CDT Therapy Visit [facility] 150 [place] [address] Danya You, PA [address] [place] [address] Aliya Kim, BOWLING BALL FINISHER [address] [facility], [address] [place] [address] 02/19/2024 3:00 PM CDT Therapy Visit [address] [phone] Danya You, PA [address] [address] Isabel Beaulieu, OTR [address] [address] 02/26/2024 2:15 PM CDT Therapy Visit [address] [phone] Danya You, PA [address] [address] Charis Chacon, JUAN [facility]NOTE 3[facility] [address] [place] [address] 02/26/2024 3:00 PM CDT Therapy Visit [address] [phone] Danya You, PA [address] [address] Isabel Beaulieu, OTR [facility] [place] [address] [facility] [place] [place] [address] 02/27/2024 4:45 PM CDT Therapy Visit [facility] [address] [place] [address] Danya You, PA [address] [address] Vanessa Duggan, PT 03/05/2024 1:30 PM CDT [facility] [address] [place] [address] Danya You, AMAIRANI [address] [address] Isabel Beaulieu, OTR [facility] 150 [place] [address] 03/05/2024 3:15 PM CDT Therapy Visit [facility] [address] [place] [address] Danya You, PA [facility] [address] [address] Charis Chacon, [facility] [address] [place] [address] 03/05/2024 4:15 PM CDT Therapy Visit [facility] 150 [facility] [place] [address] Danya You, PA [address] [address] Delicia George, PT [facility] [address] [place] [address] 03/11/2024 2:15 PM CDT Therapy Visit [address] [phone] Danya You, PA [address] [address] Isabel Beaulieu OTR [address] [address] 03/11/2024 3:00 PM CDT Therapy Visit [address] [phone] Danya You, PA [address] [address] Charis Chacon, [facility] [address] [place] [address] 03/11/2024 4:15 PM CDT Therapy Visit [address] [phone] Danya You, PA [address] [address] Delicia George, PT [facility] [address] [place] [address] 03/17/2024 1:30 PM CDT Therapy Visit [address] [place] [address] Danya You, AMAIRANI [address] [place] [address] Isabel Beaulieu, OTR [address] [address] 03/17/2024 2:30 PM CDT Therapy Visit [address] [phone] Danya You, AMAIRANI [address] [address] Charis Chacon SLP [facility] 3[facility] RE[facility] [address] [place] [address] 03/17/2024 4:00 PM CDT Therapy Visit [address] [phone] Danya You, PA 24[address] [facility] [address] [address] Delicia George, PT [facility] [address] [place] [address] 03/23/2024 10:30 AM CDT Office Visit [facility] [address] [place] [phone] Denise Woodson Ra, COMMISSION AUDITOR [facility] [address] [place] [address] 03/26/2024 1:30 PM CDT Therapy Visit [address] [place] [phone] Danya You PA [address] [place] [address] Isabel Beaulieu, OTR [facility] 150 [place] [address] 03/26/2024 2:30 PM CDT Therapy Visit [facility] 150 [place] [address] Danya You, AMAIRANI [address] 0769[address] Charis Chacon, [facility] [address] [place] [address] 03/26/2024 3:30 PM CDT Therapy Visit [facility] 150 [place] [address] Danya You, AMAIRANI 2450 [facility] [address] [address] Delicia George, PT [facility] [address] [address] 04/02/2024 2:15 PM CDT Therapy Visit [facility] 150 [place] [address] Danya You, AMAIRANI [address] [place] [address] Isabel Beaulieu, OTR [facility] 150 [place] [address] 04/02/2024 3:15 PM CDT Therapy Visit [address] [phone] Danya You PA [address] [address] Charis Chacon SLP [facility] [address] [place] [address] 04/02/2024 4:15 PM CDT Therapy Visit [address] [phone] Danya You, PA [address] [address] Delicai George, PT [facility] [address] [place] [address] 04/09/2024 3:15 PM CDT Therapy Visit [address] [address] Danya You, PA [address] [address] Charis Chacon SLP [facility] 3[facility] REH [address] [place] [address] 04/09/2024 4:15 PM CDT Therapy Visit [address] [phone] Danya You PA [address] [address] Delicia George, PT [facility] 909 [place] [address] 04/15/2024 9:30 AM CDT Therapy Visit [address] [phone] Danya You PA [address] [place] [address] Danya Restrepo, BOWLING BALL FINISHER 04/23/2024 2:30 PM CDT Therapy Visit [address] [phone] Danya You, AMAIRANI [address] [place] [address] Charis Chacon, [facility] [address] [place] [address] 06/23/2024 11:00 AM CDT Virtual Visit [facility] Mental Health & Addiction [address] [address] Kristin Vázquez, [facility] 0341 [place] [address] 06/30/2024 2:00 PM CDT Virtual Visit [facility] Mental Health & Addiction [facility] 6401 [place] [address] Kristin Vázquez, [facility] 6341 [place] [address] documented as of this encounter Visit Diagnoses Not on filedocumented in this encounter Care Teams Restaurant Crew Relationship Specialty Start Date End Date Timmy Perez MD PCP - Obstetrics/Gynecology 03/02/08 08/07/15 Yung Madrigal MD RETIRED PCP - Orthopaedics Orthopedics 08/26/12 01/20/24 Winston Villatoro, OD [facility] [address] [place] [address] PCP - Ophthalmology Ophthalmology 02/11/13 Apple Sykes MD [facility] [place] [address] [place] [address] PCP - General Family Practice 05/04/13 10/25/16 Westley Bates MD XXX RETIRED XXX [address] [place] [address] PCP - ENT Otolaryngology 05/14/13 07/28/18 [facility]less[facility] Gómez APRN NET WEB DEVELOPER [address] [facility] [place] [address] PCP - General Nurse Practitioner 10/26/16 02/06/17 Clara Cornell MD [address] [facility] [place] [place] [address] PCP - General Internal Medicine 02/07/17 09/20/20 Clara Cornell MD 8675 [place] [address] PCP - Assigned PCP 01/17/17 11/18/18 Denise Woodson Ra, COMMISSION AUDITOR NET WEB DEVELOPER [address] [place] [place] [address] PCP - General Family Practice 09/21/20 Clara Cornell MD 8675 [place] [address] Assigned PCP 01/17/17 07/16/20 Denise Woodson Ra, APRN NET WEB DEVELOPER [address] [place] [address] Assigned PCP 07/17/20 Usha Simon APRN NET WEB DEVELOPER [address] [place] [address] Nurse Practitioner Neurological Surgery 01/24/24 Dangelo Salinas MD [address] [place] [address] Neurology 01/27/24 documented as of this encounter
--- OUTSIDE RECORDS SUMMARY | 2024-01-31 12:11 | XMS_ITS | Encounter Summary ---
Author Name Unknown Organization [place] Address [address] [place] [address] Care Team Providers Care Magician Helper Name Role Phone Yung Madrigal MD Unavailable Unavailable Winston Villatoro OD Unavailable [phone] Serum, Clara aGrland MD Primary Care Provider Serum, Clara Garland MD Unavailable Denise Woodson Ra, APRN CAE ENGINEER Unavailable [phone] Denise Woodson Ra, APRN CAE ENGINEER Primary Care Provid er Usha Simon APRN CAE ENGINEER Unavailable [phone] Dangelo Salinas MD Unavailable Encounter Details Date Type Department Care Team (Late st Contact Info) Description 01/21/2019 MyC Medical Advice [address] [place] [phone] [facility] Social History Tobacco Use Types [...] Description 02/03/2024 8:45 AM CDT Therapy Visit [facility] Rehabilitation [address] [phone] Denise Woodson Ra, FLIGHT ENGINEER INSPECTOR CAE ENGINEER [address] [place], [place] [phone] Addis Rojas, PT [facility] [address] [place], [place] [phone] 02/04/2024 PRE VISIT [facility] Neurology [address] [phone] Raul Hoyos MD [address] [place] [address] 877325 *-*INCOMING RECORDS*-* 02/04/2024 11:00 AM CDT Virtual Visit [facility] Neurology [address] [phone] Raul Hoyos MD [address] [place] [address] 02/06/2024 8:30 AM CDT Office Visit [facility] [address] [place] [address] Denise Woodson Ra, FLIGHT ENGINEER INSPECTOR CAE ENGINEER [address] [place] [address] 02/07/2024 2:00 PM CDT Therapy Visit [facility] Rehabilitation [address] [phone] Danya You, PA [address] [place], [place] [address] Charis Chacon SLP [facility] RE[facility] [address] [place] [address] 02/14/2024 12:45 PM CDT Therapy Visit [address] [phone] Danya You, AMAIRANI [address] [place] [address] Isabel Beaulieu, OTR [address] [address] 02/14/2024 2:00 PM CDT Therapy Visit [address] [address] Danya You, AMAIRANI [address] [address] Charis Chacon, [facility] [address] [place] [address] 02/14/2024 2:45 PM CDT Therapy Visit [address] [address] Danya You, PA [address] [address] Maria Eugenia Nguyen, PT 2155 [place] [address] 02/17/2024 2:45 PM CDT Therapy Visit [address] [phone] Danya You PA [address] [address] Aliya Kim, COMPOUND MACHINE OPERATOR [address] [facility], [address] [place], [place] [address] 02/19/2024 3:00 PM CDT Therapy Visit [facility] [address] [place] [address] Danya You PA [address] [place] [address] Isabel Beaulieu, OTR [facility] 150 [place] [address] 02/26/2024 2:15 PM CDT Therapy Visit [facility] 150 [place] [address] Danya You PA [address] [address] Charis Chacon, [facility] [place] [address] 02/26/2024 3:00 PM CDT Therapy Visit [facility] [address] [place] [address] Danya You, AMAIRANI [facility] [address] [place] [address] Isabel Beaulieu, OTR [facility] 150 [place] [address] 02/27/2024 4:45 PM CDT Therapy Visit [facility] [address] [place] [phone] Danya You, PA [address] [place] [address] Vanessa Duggan, PT 03/05/2024 1:30 PM CDT Therapy Visit [facility] 150 [place] [address] Danya You, PA [address] [place] [address] Isabel Beaulieu, OTR [address] [address] 03/05/2024 3:15 PM CDT Therapy Visit [address] [phone] Danya You, AMAIRANI [address] [address] Charis Chacon, [facility] [address] [place] [address] 03/05/2024 4:15 PM CDT Therapy Visit [address] [phone] Danya You, PA [facility] [address] [address] Delicia George, PT [facility] [address] [address] 03/11/2024 2:15 PM CDT Therapy Visit [address] [phone] Danya You PA [address] [place] [address] Isabel Beaulieu, OTR [facility] [address] [place] [address] 03/11/2024 3:00 PM CDT Therapy [facility] [address] [place] [phone] Danya You, PA [address] [address] Charis Chacon, [facility] [address] [place] [address] 03/11/2024 4:15 PM CDT [facility] [address] [place] [address] Danya You, PA [address] [address] Delicia George, PT [facility] [address] [place] [address] 03/17/2024 1:30 PM CDT Therapy Visit [facility] [address] [place] [phone] Danya You, AMAIRANI [address] [address] Isabel Beaulieu, OTR [facility] [address] [place] [address] 03/17/2024 2:30 PM CDT Therapy Visit [facility] 150 [place] [address] Danya You PA [address] [place] [address] [address] Charis Chacon, [facility] [address] [place] [address] 03/17/2024 4:00 PM CDT Therapy Visit [address] [phone] Danya You PA 9140 [facility] [address] [address] Delicia George, PT [facility] [address] [address] 03/23/2024 10:30 AM CDT Office Visit [facility] [address] [place] [address] Denise Woodson Ra, FLIGHT ENGINEER INSPECTOR CAE ENGINEER [address] [place], [place] 68[address] 03/26/2024 1:30 PM CDT Therapy Visit [address] [phone] Danya You PA [address] [place] [address] Isabel Beaulieu OTR [address] [address] 03/26/2024 2:30 PM CDT Therapy Visit [address] [phone] Danya You, AMAIRANI [address] [place] [address] Charis Chacon, [facility] [address] [place] [address] 03/26/2024 3:30 PM CDT Therapy Visit [address] [phone] Danya You, AMAIRANI [address] [address] Delicia George, PT [facility] [address] [address] 04/02/2024 2:15 PM CDT Therapy Visit [address] [phone] Danya You, PA [facility]0 [place] [address] [address] Isabel Beaulieu, OTR [address] [address] 04/02/2024 3:15 PM CDT Therapy Visit [address] [phone] Danya You, PA [facility]0 [place] [address] [address] Charis Chacon, [facility] [address] [place] [address] 04/02/2024 4:15 PM CDT Therapy Visit [address] [address] Danya You, PA [address] [address] Delicia George, PT [address] [address] 04/09/2024 3:15 PM CDT Therapy Visit [address] [address] Danya You, PA [address] [address] Charis Chacon, [facility] [address] [place] [address] 04/09/2024 4:15 PM CDT Therapy Visit [address] [address] Danya You, PA [address] [address] Delicia George, PT [address] 69[address] 04/15/2024 9:30 AM CDT Therapy Visit [address] [address] Danya You, PA [address] [place] [address] Danya Restrepo SLP 04/23/2024 2:30 PM CDT Therapy Visit [facility] 150 [place] [address] Danya You PA [address] [place] [address] Charis Chacon, [facility] [address] [place] [address] 06/23/2024 11:00 AM CDT Virtual Visit [facility] Mental Health & Addiction [address] [address] Kristin Vázquez, [facility] 6341 [place] [address] 06/30/2024 2:00 PM CDT Virtual Visit [facility] Mental [facility] & Addiction [address] [address] Kristin Vázquez, [facility] [address] [place] [address] documented as of this encounter Visit Diagnoses Not on filedocumented in this encounter Additional Health Concerns Assessment Noted Time PHQ-9 Depression Total Score: 0 02/09/20 17 7:29 AM CDT documented as of this encounter Care Teams Magician Helper Relationship Specialty Start Date End Date Yung Madrigal MD RETIRED PCP - Orthopaedics Orthopedics 08/26/12 01/20/24 Winston Villatoro OD [facility] [place] [address] [place] [address] [address] [place] [address] PCP - Ophthalmology Ophthalmology 02/11/13 Clara Cornell MD [facility] [place] [address] [place] [address] PCP - General Internal Medicine 02/07/17 09/20/20 Denise Woodson Ra, APRN CAE ENGINEER [address] [place] [address] PCP - General Family Practice 09/21/20 Clara Cornell MD 8675 [place] [address] Assigned PCP 01/17/17 07/16/20 Denise Woodson Ra, APRN CAE ENGINEER [address] [place] [address] Assigned PCP 07/17/20 Usha Simon APRN CAE ENGINEER [address] [address] Nurse Practitioner Neurological Surgery 01/24/24 Dangelo Salinas MD [address] [place] [address] Neurology 01/27/24 documented as of this encounter
--- OUTSIDE RECORDS SUMMARY | 2024-01-31 12:11 | XMS_ITS | Encounter Summary ---
Author Name Unknown Organization [place] Address [address] [place] [address]. [place] [address] Care Team Providers Care Can Conveyor Feeder Name Role Phone Timmy Perez MD Unavailable Unavailable Encounter Details Date Type Department Care Team (Late st Contact Info) Description 01/17/2012 3:20 PM CDT [facility] [address] [place] [phone] Luis Walsh [address] [place] [address] Interface, Slot RouterMD Social History Tobacco Use Types Packs/Day Years [...] 02/03/2024 8:45 AM CDT Therapy Visit [facility] [address] [address] Denise Woodson Ra, SALES AND MERCHANDISING ASSOCIATE IMAGING SERVICES DIRECTOR [address] [place] [address] Addis Rojas, PT [facility] [address] [place] [address] 02/04/2024 PRE VISIT [facility] [address] 3rd [place] [phone] Raul Hoyos MD [address] [place] [id number] *-*INCOMING RECORDS*-* 02/04/2024 11:00 AM CDT Virtual Visit [facility] [address] [phone] Raul Hoyos MD [address] [place] [address] [id number] 02/06/2024 8:30 AM CDT Office Visit [facility] [address] [place] [phone] Denise Woodson Ra, SALES AND MERCHANDISING ASSOCIATE IMAGING SERVICES DIRECTOR [address] [place], [place] [id number] 02/07/2024 2:00 PM CDT Therapy Visit [address] [phone] Danya You, PA [address] [address] Charis Chacon, [facility] [address] [place] [address] 02/14/2024 12:45 PM CDT Therapy Visit [address] [phone] Danya You PA [facility] [address] [address] Isabel Beaulieu, OTR [facility] 150 [place] [address] 02/14/2024 2:00 PM CDT Therapy Visit [address] [phone] Danya You, AMAIRANI 2450 [facility] 213 [place] [address] Charis Chacon, [facility] [address] [place] [address] 02/14/2024 2:45 PM CDT Therapy Visit [address] [phone] Danya You, PA 2450 [facility] 213 [place] [address] Maria Eugenia Nguyen, PT 2[address] [place] [address] 02/17/2024 2:45 PM CDT Therapy Visit [address] [phone] Danya You, AMAIRNAI 2450 [facility] 213 [place] [address] Aliya Kim, MASTER BAKER [address] [address] 02/19/2024 3:00 PM CDT Therapy Visit [address] [phone] Danya You, PA 2450 [address] [place] [address] Isabel Beaulieu, OTR [facility] 150 [facility] [place] [address] 02/26/2024 2:15 PM CDT [facility] 150 [place] [phone] Danya You, AMAIRANI 2450 [address] CHARLES 213 [place] [address] Charis Chacon, [facility] [address] [place] [address] 02/26/2024 3:00 PM CDT Therapy Visit [facility] 150 [place] [phone] Danya You PA [address] CHARLES 213 [place] [address] Isabel Beaulieu, OTR [facility] 150 [place] [address] 02/27/2024 4:45 PM CDT [facility] 150 [place] [address] Danya You PA [address] CHARLES [address] [place] [address] Vanessa Duggan, PT 03/05/2024 1:30 PM CDT [facility] 150 [place] [address] Danya You PA [address]OTO [address] [place] [address] Isabel Beaulieu, OTR FV [address] [address] 03/05/2024 3:15 PM CDT Therapy Visit [facility] 150 [place] [phone] Danya You, PA 24[address] SOTO [address] [place] [address] Charis Chacon, [facility] [address] [place] [address] 03/05/2024 4:15 PM CDT Therapy Visit [address] [phone] Danya You, PA [address] [address] Delicia George, PT [facility] [address] [place] [address] 03/11/2024 2:15 PM CDT Therapy Visit [address] [phone] Danya You, PA [address] SOTO [address] [place] [address] Isabel Beaulieu, OTR FV [address] [address] 03/11/2024 3:00 PM CDT Therapy Visit [place] [address] [place] [address] Danya You, AMAIRANI 2450 [address] [address] Charis Chacon, [facility] [address] [place] [address] 03/11/2024 4:15 PM CDT Therapy Visit [address] [phone] Danya You, PA 2450 [facility] [address] [address] Delicia George, PT [facility] [address] 716905 03/17/2024 1:30 PM CDT Therapy Visit [address] [phone] Danya You, PA 2450 [facility] [address] [address] Isabel Beaulieu, OTR [address] [address] 03/17/2024 2:30 PM CDT Therapy Visit [address] [phone] Danya You, PA [facility] [address] [address] Charis Chacon, [facility] [address] [place] [address] 03/17/2024 4:00 PM CDT Therapy Visit [facility] 150 [place] [phone] Danya You, PA 2450 [facility] [address] [place], [place] 3775[address] Delicia George, PT [facility] [address] [place] [address] 03/23/2024 10:30 AM CDT Office Visit [facility] [address] [place] [phone] Denise Woodson Ra, SALES AND MERCHANDISING ASSOCIATE IMAGING SERVICES DIRECTOR [address] [place], [place] [id number] 03/26/2024 1:30 PM CDT Therapy Visit [address] [phone] Danya You, PA [address] [address] Isabel Beaulieu, JAIMIE [address] [address] 03/26/2024 2:30 PM CDT Therapy Visit [address] [phone] Danya You, PA [address] [address] Charis Chacon, [facility] [address] [place] [address] 03/26/2024 3:30 PM CDT Therapy Visit [address] [phone] Danya You PA [address] [place] [address] Delicia George, PT [facility] [address] [address] 04/02/2024 2:15 PM CDT Therapy Visit [address] [phone] Danya You, AMAIRANI 2450 [address] [place] [address] Isabel Beaulieu, OTJah [address] [address] 04/02/2024 3:15 PM CDT Therapy Visit [address] [phone] Danya You, PA [address] [place] [address] Charis Chacon, [facility] [address] [place] [address] 04/02/2024 4:15 PM CDT Therapy Visit [address] [phone] Danya You, AMAIRANI 2450 [address] [place] [address] Delicia George, PT [address] [address] 04/09/2024 3:15 PM CDT Therapy Visit [address] [phone] Danya You, PA [address] MB [address] [place] [address] Charis Chacon, [facility] [address] [place] [address] 04/09/2024 4:15 PM CDT Therapy Visit [address] [phone] Danya You, PA [address] MB [address] [place] [address] Delicia George, PT [address] [address] 04/15/2024 9:30 AM CDT Therapy Visit [address] [phone] Danya You PA [address] MB [address] [place] [address] Danya Restrepo, MASTER BAKER 04/23/2024 2:30 PM CDT Therapy Visit [address] [phone] Danya You, PA [address]50 [address] [place] [address] Charis Chacon, MASTER [facility]AKER [facility] [address] [place] [address] 06/23/2024 11:00 AM CDT Virtual Visit [facility] Addiction [address] [address] Kristin Vázquez, [facility] 6[address] [place] [address] 06/30/2024 2:00 PM CDT Virtual Visit [facility] 6401 [place] [address] Kristin Vázquez, [facility] 6327 [place] [address] documented as of this encounter Visit Diagnoses Not on filedocumented in this encounter Care Teams Can Conveyor Feeder Relationship Specialty Start Date End Date Timmy Perez MD PCP - Obstetrics/Gynecology 03/02/0807/18 documented as of this encounter
--- OUTSIDE RECORDS SUMMARY | 2024-01-31 12:11 | XMS_ITS | Encounter Summary ---
Author Name Unknown Organization [place] Address [address] [place] [address] Care Team Providers Care Multi Spindle Operator Name Role Phone Yung Madrigal MD Unavailable Unavailable Winston Villatoro OD Unavailable [phone] Serum, Clara Garland MD Primary Care Provider Serum, Clara Garland MD Unavailable [phone] Denise Woodson Ra, APRN DAY SPA MANAGER Unavailable + [phone] Denise Woodson Ra, APRN DAY SPA MANAGER Primary Care Provid er Usha Simon APRN DAY SPA MANAGER Unavailable [phone] Dangelo Salinas MD Unavailable Reason for Visit * Reason Onset Date Comments LAB REQUEST 06/16/2019 Encounter Details Date Type Department Care Team (Late st Contact Info) Description 06/16/2019 MyC Medical Advice [facility] [address] [facility] [address] [place] [address] Serum, Clara Garland MD [address] [place] [address] LAB REQUEST Social History Tobacco [...] Miscellaneous Notes * Telephone Encounter - Genet Holcomb, RN - 06/16/2019 4:17 PM CDT See mychart message regarding yesterday's appointment. Patient requesting to check TSH and antibodies for pt reported possible yonas's. Pended TSH for provider review. documented in this encounter Plan of Treatment Upcoming Encounters Date Type Department Care Team (Late st Contact Info) Description 02/03/2024 8:45 AM CDT Therapy Visit [address] [phone] Denise Woodson Ra, EXPERIMENTAL WORKER DAY SPA MANAGER [address] [place], [place] [phone] Addis Rojas, PT [facility] [address] [place] [address] 02/04/2024 PRE VISIT [facility] Neurology [address] [phone] Raul Hoyos MD [address] [place] [address] *-*INCOMING RECORDS*-* 02/04/2024 11:00 AM CDT Virtual Visit [facility] Neurology [address] [address] Raul Hoyos MD [address] [place] [address] 3416[address] 02/06/2024 8:30 AM CDT Office Visit [facility] [address] [place] [address] Denise Woodson Ra, EXPERIMENTAL WORKER DAY SPA MANAGER [address] [place] [address] 02/07/2024 2:00 PM CDT Therapy Visit [facility] 150 [place] [phone] Danya You, PA 2450 [facility] 213 [place] [address] Charis Chacon, [facility] [address] [place], [place] [address]37 02/14/2024 12:45 PM CDT Therapy Visit [address] [phone] Danya You, PA [address] 719164 Isabel Beaulieu, JAIMIE [address] [address] 02/14/2024 2:00 PM CDT Therapy Visit [address] [phone] Danya You, PA [address] 794034 Charis Cahcon, [facility] [address] [place], [place] 638937 02/14/2024 2:45 PM CDT Therapy Visit [address] [address] Danya You PA [address] [place] [address] Maria Eugenia Nguyen, PT 2155 [place] [address] 02/17/2024 2:45 PM CDT Therapy Visit [address] [phone] Danya You, PA [address] [place] [address] Aliya Kim, CHIEF ENVIRONMENTAL COMMITMENT OFFICER [address] [facility], [address] [place] [address] 02/19/2024 3:00 PM CDT Therapy Visit [address] [address] Danya You, PA [address] [address] Isabel Beaulieu, OTR [address] [address] 02/26/2024 2:15 PM CDT Therapy Visit [address] [address] Danya You, PA [address] [address] Charis Chacon, [facility] [address] [place] [address] 02/26/2024 3:00 PM CDT [facility] [address] [facility] [address] Danya You, PA 2450 [facility] [address] [place] [address] Isabel Beaulieu, OTR [facility] [address] [place] [address] 02/27/2024 4:45 PM CDT Therapy Visit [facility] 150 [place] [address] Danya You, PA 2450 [facility] J[facility] [address] [place] [address] Vanessa Duggan, PT 03/05/2024 1:30 PM CDT Therapy Visit [facility] [address] [place] [address] Danya You, AMAIRANI [address] [address] Isabel Beaulieu, OTR [facility] [address] [place] [address] 03/05/2024 3:15 PM CDT Therapy Visit [facility] [address] [place] [address] Danya You, AMAIRANI [address] [address] Charis Chacon, [facility] [address] [place] [address] 03/05/2024 4:15 PM CDT Therapy Visit [facility] 150 [place] [address] Danya You, AMAIRANI [address] 362234 Delicia George, PT [address] [address] 03/11/2024 2:15 PM CDT Therapy Visit [facility] 150 [place] [phone] Danya You, PA [address] [facility] [address] [address] Isabel Beaulieu, JAIMIE [address] [address] 03/11/2024 3:00 PM CDT Therapy Visit [address] [phone] Danya You, PA [facility] [address] [address] Charis Chacon, [facility] [address] [place] [address] 03/11/2024 4:15 PM CDT Therapy Visit [address] [phone] Danya You, PA [facility] [address] [address] Delicia George, PT [address] [address] 03/17/2024 1:30 PM CDT Therapy Visit [address] [address] Danya You, PA [address] [address] Isabel Beaulieu, OTR [address] [address] 03/17/2024 2:30 PM CDT Therapy Visit [address] [phone] Danya You, PA [facility] [address] [address] Charis Chacon, [facility] [address] [place] [address] 03/17/2024 4:00 PM CDT Therapy Visit [address] [phone] Danya You, PA [address] [place] [address] Delicia George, PT [facility] 909 [place] [address] 03/23/2024 10:30 AM CDT Office Visit [facility] [address] [place] [phone] Denise Woodson Ra, EXPERIMENTAL WORKER [facility] [address] [place] [address] 03/26/2024 1:30 PM CDT Therapy Visit [address] [address] Danya You, AMAIRANI 2450 [address] [place] [address] Isabel Beaulieu, OTR [address] [address] 03/26/2024 2:30 PM CDT Therapy Visit [address] [phone] Danya You, PA 8990 [facility] SOTO [address] [place] [address] Charis Chacon, [facility] [address] [place] [address] 03/26/2024 3:30 PM CDT Therapy Visit [address] [phone] Danya You, PA 6790 [address] [place] [address] Delicia George, PT [facility] [address] [place] [address] 04/02/2024 2:15 PM CDT Therapy Visit [address] [phone] Danya You, PA [address] [address] Isabel Beaulieu, OTR [facility] 150 [place] [address] 04/02/2024 3:15 PM CDT Therapy Visit [address] [phone] Danya You, PA [address] [address] Charis Chacon, [facility] [address] [place], [place] 86[address]87 04/02/2024 4:15 PM CDT Therapy Visit [address] [phone] Danya You, PA [address] [place] [address] Delicia George, PT [facility] [address] [address] 04/09/2024 3:15 PM CDT Therapy Visit [address] [phone] Danya You, PA [address] 7918[address] Charis Chacon, [facility] [address] [place] [address] 04/09/2024 4:15 PM CDT Therapy Visit [address] [address] Danya You, PA [address] [address] Delicia George, PT [facility] [address] [place] [address] 04/15/2024 9:30 AM CDT Therapy Visit [address] [address] Danya You, PA [address] [address] Danya Restrepo, CHIEF ENVIRONMENTAL COMMITMENT OFFICER 04/23/2024 2:30 PM CDT Therapy Visit [address] [phone] Danya You PA [address] [place] [address] [address] Charis Chacon, [facility] [address] [place] [address] 06/23/2024 11:00 AM CDT Virtual Visit [facility] [address] [address] Kristin Vázquez, [facility] [address] [place] [address] 06/30/2024 2:00 PM CDT Virtual Visit [facility] [address] [address] Kristin Vázquez, [facility] 6341 [facility] [phone] documented as of this encounter Results * Follicle stimulating hormone (06/22/2019 3:36 PM CDT) FSH 9.5 IU/L 06/23/2019 2:32 PM CDT [facility] Comment: FSH Reference Range Female: Follicular ?2.5-10.2 ?Mid-cycle ? 3.4-33.4 ?Luteal ?1.5-9.1 ?Postmenopausal ??23.0-116.3 Blood specimen (specimen) 06/22/2019 3:36 PM CDT 06/22/2019 3:37 PM CDT Clara Cornell MD LAB - BLOOD ORD ERABLES [facility] [address] [place] [address] * TSH with free T4 reflex FUTURE anytime (06/22/2019 3:36 PM CDT) TSH 3.30 0.40 - 4.00 mU/L 06/23/2019 3:12 PM CDT [facility] Blood specimen (specimen) 06/22/2019 3:36 PM CDT 06/22/2019 3:37 PM CDT Clara Cornell MD LAB - BLOOD ORD ERABLES [facility] [address] [place], [place] [address] documented in this encounter Visit Diagnoses Diagnosis Anti-TPO antibodies present- Primary Other and unspecified nonspecific immunological findings Excessive sweating Generalized hyperhidrosis documented in this encounter Additional Health Concerns Assessment Noted Time PHQ-9 Depression Total Score: 0 06/15/20 19 7:09 PM CDT documented as of this encounter Care Teams Multi Spindle Operator Relationship Specialty Start Date End Date Yung Madrigal MD RETIRED PCP - Orthopaedics Orthopedics 08/26/12 01/20/24 Winston Villatoro OD [facility] [place] [address] [place] [address] PCP - Ophthalmology Ophthalmology 02/11/13 Clara Cornell MD [facility] [place] [address] [place] [address] PCP - General Internal Medicine 02/07/17 09/20/20 Denise Woodson Ra EXPERIMENTAL WORKER DAY SPA MANAGER [address] [place] [address] PCP - General Family Practice 09/21/20 Clara Cornell MD [address] [place] [address] Assigned PCP 01/17/17 07/16/20 Denise Woodson Ra EXPERIMENTAL WORKER DAY SPA MANAGER [address] [place] [address] Assigned PCP 07/17/20 Usha Simon APRN DAY SPA MANAGER 909 [facility] [place] [address] Nurse Practitioner Neurological Surgery 01/24/24 Dangelo Salinas MD [address] [place] [address] Neurology 01/27/24 documented as of this encounter
--- OUTSIDE RECORDS SUMMARY | 2024-01-31 12:11 | XMS_ITS | Encounter Summary ---
Author Name Unknown Organization [place] Address [address] [place] [address] Care Team Providers Care Laborer Name Role Phone Timmy Perez MD Unavailable Unavailable Yung Madrigal MD Unavailable Unavailable Frw, None Primary Care Provider Unavailabl e Winston Villatoro OD Unavailable [phone] Apple Sykes MD Primary Care Provider [phone] Westley Bates MD Unavailable Alessandra Cabrales APRN 3RD MATE Primary Car e Provider Serum, Clara Garland MD Primary Care Provider Serum, Clara Garland MD Unavailable [phone] Serum, Clara Garland MD Unavailable [phone] Denise Woodson Ra, APRN 3RD MATE Unavailable [phone]- [phone] Denise Woodson Ra, APRN 3RD MATE Primary Care Provid er Usha Simon APRN 3RD MATE Unavailable [phone]- [phone] Dangelo Salinas MD Unavailable Reason for Visit * Reason Onset Date Comments Medication Question 04/21/2013 Farhan Saez [facility] Encounter Details Date Type Department Care Team (Late st Contact Info) Description 04/21/2013 Telephone [facility] in [facility] [address] [place] [phone] Janna Rodriguez, gas pumping station helper Question ([facility]) Social History Tobacco Use Types Packs/Day Years [...] encounter Miscellaneous Notes * Telephone Encounter - Michael Janna A - 04/21/2013 12:09 PM CDT This nurse returned call to Pharmacist Kiko and per Dr. Sykes, pt to take Trazodone 50mg tablets Sig: Take 2 tablets by mouth at bedtime. Kiko stated understanding. * Telephone Encounter - Michael Janna Bobbi - 04/21/2013 11:54 AM CDT [facility]Pharmacist in [...] Description 02/03/2024 8:45 AM CDT Therapy Visit [facility] Rehabilitation Services [address] [address] Denise Woodson Ra, SCRIPT GIRL 3RD MATE [address] [place] [address] Addsi Rojas, PT [facility] AMAIRANI [address] [place] [address] 02/04/2024 PRE VISIT [facility] Neurology Clinic [address]rd [place] [phone] Raul Hoyos MD [address] [place] [id number] *-*INCOMING RECORDS*-* 02/04/2024 11:00 AM CDT Virtual Visit [facility] Neurology [address] [phone] Raul Hoyos MD [address] [place] [address] 02/06/2024 8:30 AM CDT Office Visit [facility] [address] [place] [phone] Denise Woodson Ra, SCRIPT GIRL 3RD MATE [address] [place] [address] 02/07/2024 2:00 PM CDT Therapy Visit [address] [phone] [place] [address] [address] Charis Chacon, [facility] [address] [place] [address] 02/14/2024 12:45 PM CDT Therapy Visit [address] [phone] [place] [address] [address] Isabel Beaulieu, OTR [facility] [address] [place] [address] 02/14/2024 2:00 PM CDT Therapy Visit [address] [phone] Danya You, AMAIRANI [address] [address] Charis Chacon, [facility] [address] [place] [address] 02/14/2024 2:45 PM CDT Therapy Visit [address] [phone] Danay You, [place] [address] [address] Maria Eugenia Nguyen, PT [address] [place] [address] 02/17/2024 2:45 PM CDT Therapy Visit [address] [phone] Danya You, AMAIRANI 2450 [facility] [address] [address] Aliya Kim, MAIL LIST PROCESSOR [address] [facility] 200 [place] [address] 02/19/2024 3:00 PM CDT Therapy Visit [address] [phone] Danya You, AMAIRANI [address] [place], [place] [address] Isabel Beaulieu, OTR [facility] [address] [place] [address] 02/26/2024 2:15 PM CDT [facility] [address] [place] [phone] Danya You, AMAIRANI [address] [address] Charis Chacon, [facility] [address] [place] [address] 02/26/2024 3:00 PM CDT Therapy Visit [address] [phone] Danya You, PA [address] [address] Isabel Beaulieu, OTR [facility] [address] [place] [address] 02/27/2024 4:45 PM CDT Therapy Visit [facility] 150 [place] [phone] Danya You, PA [address] [address] Vanessa Duggan, PT 03/05/2024 1:30 PM CDT [facility] [address] [place] [phone] Danya You, AMAIRANI [address] [address] Isabel Beaulieu, OTR [facility] [address] [place] [address] 03/05/2024 3:15 PM CDT Therapy [facility] [address] [place] [phone] Danya You, AMAIRANI [address] [address] Charis Chacon, [facility] [address] [place] [address] 03/05/2024 4:15 PM CDT Therapy Visit [address] [phone] Danya You, PA [address] [address] Delicia George, PT [facility] [address] [place] [address] 03/11/2024 2:15 PM CDT Therapy Visit [facility] [address] [place] [phone] Danya You, PA [address] [place] [address] Isabel Beaulieu, OTR [facility] [address] [place] [address] 03/11/2024 3:00 PM CDT Therapy Visit [facility] 150 [place] [phone] Danya You PA [address] [place] [address] Charis Chacon SLP [facility] [address] [place] [address] 03/11/2024 4:15 PM CDT Therapy Visit [facility] [address] [place] [address] Danya You, PA [address] [place] [address] Delicia George, PT [facility] [address] [address] 03/17/2024 1:30 PM CDT Therapy Visit [facility] 150 [place] [address] Danya You, PA [address] [address] Isabel Beaulieu, OTR [facility] [address] [place] [address] 03/17/2024 2:30 PM CDT Therapy Visit [facility] 150 [place] [address] Danya You, PA [address] [place] [address] Charis Chacon, [facility] [address] [place] [address] 03/17/2024 4:00 PM CDT Therapy Visit [facility] 150 [place] [address] Danya You PA [address] [place] [address] Delicia George, PT [facility] [address] [place] [address] 03/23/2024 10:30 AM CDT Office Visit [facility] [address] [place] [address] Denise Woodson Ra, SCRIPT GIRL 3RD MATE [address] [place], [place] [address] 03/26/2024 1:30 PM CDT Therapy Visit [address] [phone] Danya You, AMAIRANI [address] [address] Isabel Beaulieu, JAIMIE [address] [address] 03/26/2024 2:30 PM CDT Therapy Visit [address] [phone] Danya You, PA [address] [place] [address] Charis Chacon SLP [facility] [address] [place] [address] 03/26/2024 3:30 PM CDT Therapy Visit [facility] 150 [place] [phone] Danya You, AMAIRANI [address] [address] Delicia George, PT [address] [address] 04/02/2024 2:15 PM CDT Therapy Visit [address] [phone] Danya You, PA [address] [address] Isabel Beaulieu, OTJah [address] [address] 04/02/2024 3:15 PM CDT Therapy Visit [address] [phone] Danya You, PA [facility] [address] [address] Charis Chacon, MAIL LIST PROCESSOR [facility] [address] [place] [address] 04/02/2024 4:15 PM CDT Therapy Visit [address] [phone] Danya You, PA [address] [address] Delicia George, PT [address] [address] 04/09/2024 3:15 PM CDT Therapy Visit [address] [address] Danya You, PA [address] [place] [address] Charis Chacon, [facility] [address] [place] [address] 04/09/2024 4:15 PM CDT Therapy Visit [address] [phone] Danya You, PA [address] [place] [address] Delicia George, PT [facility] [address] [place] [address] 04/15/2024 9:30 AM CDT Therapy Visit [address] [phone] Danya You, PA [address] [place] [address] Danya Restrepo, MAIL LIST PROCESSOR 04/23/2024 2:30 PM CDT Therapy Visit [address] [phone] Danya You, PA [address] [place] [address] Charis Chacon, [facility] [address] [place] [address] 06/23/2024 11:00 AM CDT Virtual Visit [facility] Mental Health & Addiction [address] [address] Kristin Vázquez, [facility] [address] [place] [address] 06/30/2024 2:00 PM CDT Virtual Visit [facility] [address] [address] Kristin Vázquez, [facility] [address] [place] [phone] documented as of this encounter Visit Diagnoses Not on filedocumented in this encounter Care Teams Laborer Relationship Specialty Start Date End Date Timmy Perez MD PCP - Obstetrics/Gynecology 03/02/08 08/07/15 Yung Madrigal MD RETIRED PCP - Orthopaedics Orthopedics 08/26/12 01/20/24 Frw, None PCP - General Family Practice 08/26/12 05/03/13 Winston Villatoro, AMELIE [facility] [place] [address] [place] [address] PCP - Ophthalmology Ophthalmology 02/11/13 Apple Sykes MD [facility] [place] [address] [place] [address] PCP - General Family Practice 05/04/13 10/25/16 Westley Bates MD XXX RETIRED XXX 701 [facility] 95 [place] [address] PCP - ENT Otolaryngology 05/14/13 07/28/18 Georgina-Alessandra Gómez APRN 3RD MATE 3305 [facility] [place] [address] PCP - General Nurse Practitioner 10/26/16 02/06/17 Clara Cornell MD 3305 [facility] [place] [address] PCP - General Internal Medicine 02/07/17 09/20/20 Clara Cornell MD 8675 [place] [address] PCP - Assigned PCP 01/17/17 11/18/18 Denise Woodson Ra, APRN 3RD MATE [address] [place] [address] PCP - General Family Practice 09/21/20 Clara Cornell MD 8675 [place] [address] Assigned PCP 01/17/17 07/16/20 Denise Woodson Ra, APRN 3RD MATE [address] [place] [address] Assigned PCP 07/17/20 Usha Simon APRN 3RD MATE 9 [facility] [place] [address] Nurse Practitioner Neurological Surgery 01/24/24 Dangelo Salinas MD [address] [place] [address] Neurology 01/27/24 documented as of this encounter
--- OUTSIDE RECORDS SUMMARY | 2024-01-31 12:11 | XMS_ITS | Encounter Summary ---
Author Name Unknown Organization [place] Address [address] [place] [address] Care Team Providers Care Assistant Administrator Name Role Phone Timmy Perez MD Unavailable Unavailable Yung Madrigal MD Unavailable Unavailable Winston Villatoro OD Unavailable [phone] Apple Sykes MD Primary Care Provider [phone] Westley Bates MD Unavailable [phone] Alessandra Cabrales APRN RCP Primary Car e Provider Serum, Clara Garland MD Primary Care Provider Serum, Clara Garland MD Unavailable [phone] Serum, Clara Garland MD Unavailable [phone] Denise Woodson Ra, APRN RCP Unavailable + [phone] Denise Woodson Ra, APRN RCP Primary Care Provid er Usha Simon APRN RCP Unavailable [phone] Dangelo Salinas MD Unavailable Encounter Details Date Type Department Care Team (Late st Contact Info) Description 05/19/2013 MyC Medical Advice [facility] [place] [facility] [address] [place] [address] Yung Madrigal MD RETIRED Social History Tobacco [...] Description 02/03/2024 8:45 AM CDT Therapy Visit [address] [phone] Denise Woodson Ra, CLINICAL NURSING INSTRUCTOR RCP [address] [place], [place] [phone] Addis Rojas, PT [facility] [address] [place] [address] 02/04/2024 PRE VISIT [facility] Neurology [address] [phone] Raul Hoyos MD [address] [place] [address] *-*INCOMING RECORDS*-* 02/04/2024 11:00 AM CDT Virtual Visit [facility] Neurology [address] [phone] Raul Hoyos MD [address] [place] [address] 02/06/2024 8:30 AM CDT Office Visit [facility] [address] [place] [phone] Denise Woodson Ra, CLINICAL NURSING INSTRUCTOR RCP [address] [place], [place] [address] 02/07/2024 2:00 PM CDT Therapy Visit [facility] [address] [place] [address] Danya You, AMAIRANI 2450 [facility] [address] [place] [address] Charis Chacon, J[facility]AN [facility] [address] [place] [address] 02/14/2024 12:45 PM CDT Therapy Visit [address] [phone] Danya You, AMAIRANI 2450 [facility] [address] [place] [address] Isabel Beaulieu, OTR [address] [address] 02/14/2024 2:00 PM CDT Therapy Visit [address] [phone] Danya You, PA 2450 [facility] [address] [place] [address] Charis Chacon SLP [place] [address] [place] [address] 02/14/2024 2:45 PM CDT Therapy Visit [address] [phone] Danya You, PA 2450 [facility] [address] [place] [address] Maria Eugenia Nguyen, PT 2155 [place] [address] 02/17/2024 2:45 PM CDT Therapy Visit [address] [phone] Danya You, AMAIRANI [address] [place] [address] Aliya Kim, UNDERWRITING INTERN [address] [facility] 200 [place] [address] 02/19/2024 3:00 PM CDT Therapy Visit [address] [phone] Danya You, AMAIRANI 2450 [facility] [address] [address] Isabel Beaulieu OTR FV [address] [address] 02/26/2024 2:15 PM CDT Therapy Visit [address] [phone] Danya You, PA [address] [address] Charis Chacon, [facility] [address] [place] [address] 02/26/2024 3:00 PM CDT Therapy Visit [address] [phone] Danya You PA 2450 [facility] [address] [place] [address] Isabel Beaulieu OTR [facility] 150 [place] [address] 02/27/2024 4:45 PM CDT Therapy Visit [facility] 150 [place] [address] Danya You, PA [address] 8816[address] Vanessa Duggan, PT 03/05/2024 1:30 PM CDT Therapy Visit [address] [phone] Danya You, PA [address] 1705[address] Isabel Beaulieu, OTR [facility] 150 [place] [address] 03/05/2024 3:15 PM CDT Therapy Visit [address] [phone] Danya You, PA [address] [address] Charis Chacon, UNDERWRITING INTERN [facility] [address] [place] [address] 03/05/2024 4:15 PM CDT Therapy Visit [address] [phone] Danya You, PA [address] 6927[address] Delicia George, PT [address] [address] 03/11/2024 2:15 PM CDT Therapy Visit [address] [address] Danya You, AMAIRANI [address] [place] [address] Isabel Beaulieu, OTR [address] [address] 03/11/2024 3:00 PM CDT Therapy Visit [address] [phone] Dnaya You, PA [address] [address] Charis Chacon, [facility] [address] [place] [address] 03/11/2024 4:15 PM CDT Therapy Visit [address] [phone] Danya You, PA 2450 [facility] C[facility]ON [address] [address] Delicia George, PT [facility] [address] [place] [address] 03/17/2024 1:30 PM CDT Therapy Visit [address] [phone] Danya You, PA 2450 [facility] [address] [place] [address] Isabel Beaulieu, OTR [facility] 150 [place] [address] 03/17/2024 2:30 PM CDT Therapy Visit [address] [phone] Danya You, PA [address] [address] Charis Chacon, UNDERWRITING INTERN [facility] [address] [place] [address] 03/17/2024 4:00 PM CDT Therapy Visit [address] [phone] Danya You, PA [address] 0722[address] Delicia George, PT [facility] [address] [place] [address] 03/23/2024 10:30 AM CDT Office Visit [facility] [address] [place] [phone] Denise Woodson Ra, CLINICAL NURSING INSTRUCTOR [facility] [address] [place], [place] [address] 03/26/2024 1:30 PM CDT Therapy Visit [address] [phone] Danya You, PA [address] [place] [address] [place] [address] Isabel Beaulieu, OTR [facility] [address] [place] [address] 03/26/2024 2:30 PM CDT Therapy Visit [address] [phone] Danya You, AMAIRANI [address] [address] Charis Chacon, [facility] [address] [place] [address] 03/26/2024 3:30 PM CDT Therapy Visit [address] [phone] Danya You PA [address] [address] Delicia George, PT [facility] [address] [place] [address] 04/02/2024 2:15 PM CDT Therapy Visit [facility] [address] [address] Danya You, AMAIRANI [address] [place] [address] [place] [address] Isabel Beaulieu, OTR [facility] [address] [place] [address] 04/02/2024 3:15 PM CDT Therapy Visit [address] [address] Danya You PA [address]50 [address] [address] Charis Chacon SLP [facility] [address] [place] [address] 04/02/2024 4:15 PM CDT Therapy Visit [address] [phone] Danya You, AMAIRANI [address] [address] Delicia George, PT [address] [address] 04/09/2024 3:15 PM CDT Therapy Visit [address] [phone] Danya You, PA [facility] [address] [address] Charis Chacon, [facility] [address] [place] [address] 04/09/2024 4:15 PM CDT Therapy Visit [address] [phone] Danya You PA [facility] [address] [address] Delicia George, PT [address] [address] 04/15/2024 9:30 AM CDT Therapy Visit [facility] [address] [place] [address] Danya You, PA [address] [address] Danya Restrepo, UNDERWRITING INTERN 04/23/2024 2:30 PM CDT Therapy Visit [address] [phone] Danya You, PA 2450 [facility] [address] [address] Charis Chacon, [facility] [address] [place] [address] 06/23/2024 11:00 AM CDT Virtual Visit [facility] Mental Health & Addiction [facility] [place] [address] [place] [address] Kristin Vázquez, [facility] 6[address] [place] [address] 06/30/2024 2:00 PM CDT Virtual Visit [facility] Mental Health & Addiction [facility] 6401 [place] [address] Kristin Vázquez, [facility] [address] [place] [address] documented as of this encounter Visit Diagnoses Not on filedocumented in this encounter Care Teams Assistant Administrator Relationship Specialty Start Date End Date Timmy Perez MD PCP - Obstetrics/Gynecology 03/02/08 08/07/15 Yung Madrigal MD RETIRED PCP - Orthopaedics Orthopedics 08/26/12 01/20/24 Winston Villatoro OD [facility] [place] [address] [place] [address] PCP - Ophthalmology Ophthalmology 02/11/13 Apple Sykes MD [facility] [place] [address] [place] [address] PCP - General Family Practice 05/04/13 10/25/16 Westley Bates MD XXX RETIRED XXX [address] [place] [address] PCP - ENT Otolaryngology 05/14/13 07/28/18 [facility] Gómez APRN RCP 3305 [facility] [place] [address] PCP - General Nurse Practitioner 10/26/16 02/06/17 Clara Cornell MD 3305 [facility] [place] [address] PCP - General Internal Medicine 02/07/17 09/20/20 Clara Cornell MD 8675 [facility] [place] [address] PCP - Assigned PCP 01/17/17 11/18/18 Denise Woodson Ra, CLINICAL NURSING INSTRUCTOR RCP [address] [place] [address] PCP - General Family Practice 09/21/20 Clara Cornell MD 8675 [place], [place] [address] Assigned PCP 01/17/17 07/16/20 Denise Woodson Ra, APRN RCP [address] [place] [address] Assigned PCP 07/17/20 Usha Simon APRN RCP 909 [facility], [place] [address] Nurse Practitioner Neurological Surgery 01/24/24 Dangelo Salinas MD 1650 [facility] 200 [place], [place] [id number] Neurology 01/27/24 documented as of this encounter
--- OUTSIDE RECORDS SUMMARY | 2024-01-31 12:11 | XMS_ITS | Encounter Summary ---
Author Name Unknown Organization [place] Address [address] [place] [address] Care Team Providers Care Bailer Tenders Supervisor Name Role Phone Timmy Perez MD Unavailable Unavailable Yung Madrigal MD Unavailable Unavailable Winston Villatoro OD Unavailable [phone] Apple Sykes MD Primary Care Provider [phone] Westley Bates MD Unavailable [phone] Alessandra Cabrales APRN DOUGH MIXER HELPER Primary Car e Provider Serum, Clara Garland MD Primary Care Provider Serum, Clara Garland MD Unavailable [phone] Serum, Clara Garland MD Unavailable [phone] Denise Woodson Ra, APRN DOUGH MIXER HELPER Unavailable + [phone] Denise Woodson Ra, APRN DOUGH MIXER HELPER Primary Care Provid er Usha Simon APRN DOUGH MIXER HELPER Unavailable [phone]- [phone] Dangelo Salinas MD Unavailable Encounter Details Date Type Department Care Team (Late st Contact Info) Description 05/26/2013 MyC Medical Advice [facility] [address] [place] [address] Yung Madrigal MD RETIRED Social [...] Description 02/03/2024 8:45 AM CDT Therapy Visit [address] [phone] Denise Woodson Ra, FACE PAINTER DOUGH MIXER HELPER [address] [place], [place] [phone] Addis Rojas, PT [facility] [address] [place] [address] 02/04/2024 PRE VISIT [facility] Neurology [address] [phone] Raul Hoyos MD [address] [place] [address] *-*INCOMING RECORDS*-* 02/04/2024 11:00 AM CDT Virtual Visit [facility] Neurology [address] [phone] Raul Hoyos MD [address] [place] [address] 02/06/2024 8:30 AM CDT Office Visit [facility] [address] [place] [phone] Denise Woodson Ra, FACE PAINTER DOUGH MIXER HELPER [address] [place], [place] 50388[address] 02/07/2024 2:00 PM CDT Therapy Visit [facility] 150 [place] [address] Danya You, AMAIRANI 2450 [facility] [address] [place] [address] Charis Chacon, JUAN [facility] [address] [place] [address] 02/14/2024 12:45 PM CDT Therapy Visit [address] [phone] Danya You, AMAIRANI 2450 [facility] [address] [place] [address] Isabel Beaulieu, OTR [address] [address] 02/14/2024 2:00 PM CDT Therapy Visit [address] [phone] Danya You, PA 2450 [facility] [address] [place] [address] Charis Chacon SLP [place] [address] [place] [address] 02/14/2024 2:45 PM CDT Therapy Visit [address] [phone] Danya You, PA 2450 [facility] [address] [place] [address] Maria Eugenia Nguyen, PT 2155 [place] [address] 02/17/2024 2:45 PM CDT Therapy Visit [address] [phone] Danya You, AMAIRANI [address] [place] [address] Aliya Kim, DIRECTOR OF PUBLICATIONS [address] [facility] 200 [place] [address] 02/19/2024 3:00 PM CDT Therapy Visit [address] [phone] Danya You, AMAIRANI 2450 [facility] [address] [address] Isabel Beaulieu OTR FV [address] [address] 02/26/2024 2:15 PM CDT Therapy Visit [address] [phone] Danya You, PA [address] [address] Charis Chacon, J[facility]AN [facility] [address] [place] [address] 02/26/2024 3:00 PM CDT Therapy Visit [address] [phone] Danya You PA 2450 [facility] [address] [place] [address] Isabel Beaulieu OTR FV [facility] 150 [place] [address] 02/27/2024 4:45 PM CDT Therapy Visit [facility] 150 [place] [address] Danya You, PA [address] 216[address] Vanessa Duggan, PT 03/05/2024 1:30 PM CDT Therapy Visit [address] [phone] Danya You, PA [address] 314924 Isabel Beaulieu, OTR [facility] 150 [place] [address] 03/05/2024 3:15 PM CDT Therapy Visit [address] [phone] Danya You, PA [address] 606[address] Charis Chacon, DIRECTOR OF PUBLICATIONS [facility] [address] [place] [address] 03/05/2024 4:15 PM CDT Therapy Visit [address] [phone] Danya You, PA [address] 480514 Delicia George, PT [address] [address] 03/11/2024 2:15 PM CDT Therapy Visit [address] [phone] Danya You, AMAIRANI [address] [place] [address] [place] [address] Isabel Beaulieu, OTR [address] [address] 03/11/2024 3:00 PM CDT Therapy Visit [address] [phone] Danya You, PA [address] [place] [address] [address] [address] Charis Chacon, [facility] [address] [place] [address] 03/11/2024 4:15 PM CDT Therapy Visit [address] [phone] Danya You, PA 2450 [facility] [address] [address] Delicia George, PT [facility] [address] [place] [address] 03/17/2024 1:30 PM CDT Therapy Visit [address] [phone] Danya You, PA 2450 [facility] [address] [place] [address] Isabel Beaulieu, OTR [facility] 150 [place] [address] 03/17/2024 2:30 PM CDT Therapy Visit [address] [phone] Danya You, PA [address] [address] Charis Chacon, DIRECTOR OF PUBLICATIONS [facility] [address] [place] [address] 03/17/2024 4:00 PM CDT Therapy Visit [address] [phone] [place], [place] [address] 898394 Delicia George, PT [facility] [address] [place] [address] 03/23/2024 10:30 AM CDT Office Visit [facility] [address] [place] [phone] Denise Woodson Ra, FACE PAINTER [facility] [address] [place], [place] 60745[address] 03/26/2024 1:30 PM CDT Therapy Visit [address] [phone] Danya You, PA [address] [place] [address] [place] [address] Isabel Beaulieu, OTR VALARIE [facility] [address] [place] [address] 03/26/2024 2:30 PM CDT Therapy Visit [address] [phone] Danya You, AMAIRANI [address] [address] Charis Chacon, [facility] [address] [place] [address] 03/26/2024 3:30 PM CDT Therapy Visit [address] [phone] Danya You PA [address] [address] Delicia George, PT [facility] [address] [place] [address] 04/02/2024 2:15 PM CDT Therapy Visit [facility] [address] [address] Danya You, AMAIRANI [address] CHAR[place] [address] [place] [address] Isabel Beaulieu, OTR [facility] [address] [place] [address] 04/02/2024 3:15 PM CDT Therapy Visit [address] [address] Danya You PA [address]50 [place] [address] [address] [address] Charis Chacon SLP [facility] [address] [place] [address] 04/02/2024 4:15 PM CDT Therapy Visit [address] [phone] Danya You, AMAIRANI [address] [address] Delicia George, PT [address] [address] 04/09/2024 3:15 PM CDT Therapy Visit [address] [phone] Danya You, PA [facility] [address] [address] Charis Chacon, JUAN [facility] [address] [place] [address] 04/09/2024 4:15 PM CDT Therapy Visit [address] [phone] Danya You PA [facility] [address] [address] Delicia George, PT [address] [address] 04/15/2024 9:30 AM CDT Therapy Visit [facility] 150 [place] [address] Danya You, PA [address] [address] Danya Restrepo, DIRECTOR OF PUBLICATIONS 04/23/2024 2:30 PM CDT Therapy Visit [address] [phone] Danya You, PA 2450 [facility] [address] [address] Charis Chacon, [facility] [address] [place] [address] 06/23/2024 11:00 AM CDT Virtual Visit [facility] Mental Health & Addiction [facility] [place] [address] [place] [address] Kristin Vázquez, [facility] [address] [place] [address] 06/30/2024 2:00 PM CDT Virtual Visit [facility] Mental Health & Addiction [facility] 6401 [place] [address] Kristin Vázquez, [facility] 5311 [place] [address] documented as of this encounter Visit Diagnoses Not on filedocumented in this encounter Care Teams Bailer Tenders Supervisor Relationship Specialty Start Date End Date Timmy Perez MD PCP - Obstetrics/Gynecology 03/02/08 08/07/15 Yung Madrigal MD RETIRED PCP - Orthopaedics Orthopedics 08/26/12 01/20/24 Winston Villatoro OD [facility] [place] [address] [place] [address] PCP - Ophthalmology Ophthalmology 02/11/13 Apple Sykes MD [facility] [place] [address] [place] [address] PCP - General Family Practice 05/04/13 10/25/16 Westley Bates MD XXX RETIRED XXX [address] [place] [address] PCP - ENT Otolaryngology 05/14/13 07/28/18 [facility] APRN DOUGH MIXER HELPER 3305 [facility] [place] [address] PCP - General Nurse Practitioner 10/26/16 02/06/17 Clara Cornell MD 3305 [facility] [place] [address] PCP - General Internal Medicine 02/07/17 09/20/20 Clara Cornell MD 8675 [place] [address] PCP - Assigned PCP 01/17/17 11/18/18 Denise Woodson Ra, FACE PAINTER DOUGH MIXER HELPER [address] [place] [address] PCP - General Family Practice 09/21/20 Clara Cornell MD 8675 [place], [place] [address] Assigned PCP 01/17/17 07/16/20 Denise Woodson Ra, APRN DOUGH MIXER HELPER [address] [place] [address] Assigned PCP 07/17/20 Usha Simon APRN DOUGH MIXER HELPER 909 [facility] [address] Nurse Practitioner Neurological Surgery 01/24/24 Dangelo Salinas MD 1650 [facility] 200 [place], [place] [address] Neurology 01/27/24 documented as of this encounter
--- OUTSIDE RECORDS SUMMARY | 2024-01-31 12:11 | XMS_ITS | Encounter Summary ---
Author Name Unknown Organization [place] Address [address] [place] [address] Care Team Providers Care Assistant Account Manager Name Role Phone Yung Madrigal MD Unavailable Unavailable Winston Villatoro OD Unavailable [phone] Serum, Clara Garland MD Primary Care Provider Serum, Clara Garland MD Unavailable [phone] Denise Woodson Ra, APRN STRADDLE BUG DRIVER Unavailable + [phone] Denise Woodson Ra, APRN STRADDLE BUG DRIVER Primary Care Provid er Usha Simon APRN STRADDLE BUG DRIVER Unavailable [phone] Dangelo Salinas MD Unavailable Encounter Details Date Type Department Care Team (Late Contact Info) Description 06/16/2019 MyC Medical Advice [address] [place] [address] Serum, Clara Garland MD 8655 [place] [address] Social History Tobacco Use Types [...] Description 02/03/2024 8:45 AM CDT Therapy Visit [address] [phone] Denise Woodson Ra, FOAM CHARGER STRADDLE BUG DRIVER [address] [place] [address] Addis Rojas, PT [facility] AMAIRANI [address] [place] [address] 02/04/2024 PRE VISIT [facility] Neurology [address] [phone] Raul Hoyos MD [address] [place] [address]1205 *-*INCOMING RECORDS*-* 02/04/2024 11:00 AM CDT Virtual Visit [facility] Neurology [address] [phone] Raul Hoyos MD [address] [place] [address] 463455 02/06/2024 8:30 AM CDT Office Visit [facility] [address] [place] [phone] Denise Woodosn Ra, FOAM CHARGER STRADDLE BUG DRIVER [address] [place] [address] 02/07/2024 2:00 PM CDT Therapy Visit [address] [phone] Danya You, AMAIRANI [facility] [place] [address] [place] [address] Charis Chacon, JUAN [facility] [address] [place] [address] 02/14/2024 12:45 PM CDT Therapy Visit [address] [phone] Danya You, PA 2455 [facility] [address] [place] [address] Isabel Beaulieu OTR [address] [address] 02/14/2024 2:00 PM CDT Therapy Visit [address] [phone] Danya You, PA 2456 [facility] [address] [place] [address] Charis Chacon, JUAN [place] [address] [place] [address] 02/14/2024 2:45 PM CDT Therapy Visit [address] [phone] Danya You, PA 2458 [facility] [address] [place] [address] Maria Eugenia Nguyen, PT 2155 [place] [address] 02/17/2024 2:45 PM CDT Therapy Visit [address] [phone] Danya You PA [address] [place] [address] Aliya Kim, CAREERS COUNSELLOR [address] [facility], [address] [place] [address] 02/19/2024 3:00 PM CDT Therapy Visit [facility] 150 [place] [address] Danya You PA [address] [address] Isbael Beaulieu, OTR [facility]V [facility] 150 [place] [address] 02/26/2024 2:15 PM CDT Therapy Visit [facility] 150 [place] [address] Danya You, AMAIRANI [address] [address] Charis Chacon, J[facility]AN [facility] [address] [place] [address] 02/26/2024 3:00 PM CDT Therapy Visit [facility] [address] [place] [address] Danya You, AMAIRANI [address] [address] Isabel Beaulieu, OTR [facility] [address] [place] [address] 02/27/2024 4:45 PM CDT Therapy Visit [facility] [address] [place] [address] Danya You, PA [address] [address] Vanessa Duggan, PT 03/05/2024 1:30 PM CDT Therapy Visit [address] [phone] Danya You, PA [address] [address] Isabel Beaulieu, OTR [address] [address] 03/05/2024 3:15 PM CDT Therapy Visit [address] [phone] Danya You, PA [address] [address] Charis Chacon, JUAN [facility] [address] [place] [address] 03/05/2024 4:15 PM CDT Therapy Visit [address] [phone] Danya You, PA [address] [address] Delicia George, PT [facility] SUR[facility]ERY [address] [address] 03/11/2024 2:15 PM CDT Therapy Visit [facility] [address] [place] [phone] Danya You PA [address]50 [address] [address] [address] Isabel Beaulieu, OTR [facility] [address] [place] [address] 03/11/2024 3:00 PM CDT Therapy Visit [facility] [address] [place] [phone] Danya You, AMAIRANI [facility] [address] [address] Charis Chacon, [facility] [address] [place] [address] 03/11/2024 4:15 PM CDT Therapy Visit [facility] [address] [place] [phone] Danya You, AMAIRANI [facility] [address] [address] Delicia George, PT [facility] SURGERY [address] [address] 03/17/2024 1:30 PM CDT Therapy Visit [facility] [address] [place] [phone] Danya You PA [facility] [address] [address] Isabel Beaulieu, OTR [facility]V [facility] 150 [facility] [place] [address] 03/17/2024 2:30 PM CDT Therapy Visit [facility] [address] [place] [address] Danya You, PA [address] [address] Charis Chacon, JUAN [facility] [address] [place] [address] 03/17/2024 4:00 PM CDT Therapy Visit [address] [phone] Danya You, PA [address] [address] Delicia George, PT [facility] [address] [place] [address] 03/23/2024 10:30 AM CDT Office Visit [facility] [address] [place] [address] Denise Woodson Ra, FOAM CHARGER STRADDLE BUG DRIVER [address] [place] [address] 03/26/2024 1:30 PM CDT Therapy Visit [address] [phone] Danya You, PA [address] [address] Isabel Beaulieu, OTR FV [address] [place] [address] 03/26/2024 2:30 PM CDT Therapy Visit [facility] [address] [place] [address] Danya You, PA [address] [place] [address] [place] [address] Charis Chacon, CAREERS COUNSELLOR [facility] [address] [place] [address] 03/26/2024 3:30 PM CDT Therapy Visit [address] [phone] Danya You, PA [address] [place] [address] [place] [address] 121564 Delicia George, PT [facility] [address] [place] [address] 04/02/2024 2:15 PM CDT Therapy Visit [facility] [address] [place] [address] Danya You, PA [address] [place] [address] [place] [address] Isabel Beaulieu OTR [facility] 150 [place] [address] 04/02/2024 3:15 PM CDT Therapy Visit [facility] [address] [place] [address] Danya You, PA [address] [place] [address] [place] [address] Charis Chacon, JUAN [facility] [address] [place] [address] 04/02/2024 4:15 PM CDT Therapy Visit [address] [address] Danya You PA [address] [place] [address] Delicia George, PT [address] [address] 04/09/2024 3:15 PM CDT Therapy Visit [address] [address] Danya You PA [address] [place] [address] Charis Chacon, JUAN [facility] [address] [place] [address] 04/09/2024 4:15 PM CDT Therapy Visit [address] [address] Danya You PA [address] [place] [address] Delicia George, PT [address] [address] 04/15/2024 9:30 AM CDT Therapy Visit [address] [address] Danya You, PA [address] [place] [address] Danya Restrepo SLP 04/23/2024 2:30 PM CDT Therapy Visit [facility] [address] [place] [address] Danya You PA [address] [place] [address] [address] [place] [address] Charis Chacon, J[facility]AN [facility] [address] [place] [address] 06/23/2024 11:00 AM CDT Virtual Visit [facility] Mental Health & Addiction [facility] [place] [address] Kristin Vázquez, [facility] 6341 [place] [address] 06/30/2024 2:00 PM CDT Virtual Visit [facility] Mental Health & Addiction [facility] 6401 [place] [address] Kristin Vázquez, [facility] [address] [place] [address] documented as of this encounter Visit Diagnoses Not on filedocumented in this encounter Additional Health Concerns Assessment Noted Time PHQ-9 Depression Total Score: 0 06/15/20 19 7:09 PM CDT documented as of this encounter Care Teams Assistant Account Manager Relationship Specialty Start Date End Date Yung Madrigal MD RETIRED PCP - Orthopaedics Orthopedics 08/26/12 01/20/24 Winston Villatoro OD [facility] [place] [address] [place] [address] PCP - Ophthalmology Ophthalmology 02/11/13 Clara Cornell MD [facility] [place] [address] [place] [address] PCP - General Internal Medicine 02/07/17 09/20/20 Denise Woodson Ra FOAM CHARGER STRADDLE BUG DRIVER [address] [place] [address] PCP - General Family Practice 09/21/20 Claar Cornell MD 8675 [place] [address] Assigned PCP 01/17/17 07/16/20 Denise Woodson Ra FOAM CHARGER STRADDLE BUG DRIVER [address] [place] [address] Assigned PCP 07/17/20 Usha Simon APRN STRADDLE BUG DRIVER 909 [facility], [place] [address] Nurse Practitioner Neurological Surgery 01/24/24 Dangelo Salinas MD [address] [address] Neurology 01/27/24 documented as of this encounter
--- OUTSIDE RECORDS SUMMARY | 2024-01-31 12:12 | XMS_ITS | Encounter Summary ---
Author Name Unknown Organization [facility] Address [address] [place] [address] Care Team Providers Care Hospital Account Liaison Name Role Phone Timmy Perez MD Unavailable Unavailable Yung Madrigal MD Unavailable Unavailable Frw, None Primary Care Provider Unavailabl e Winston Villatoro OD Unavailable [phone] Apple Sykes MD Primary Care Provider [phone] Westley Bates MD Unavailable [phone] Alessandra Cabrales APRN EMBLEM FUSER TENDER Primary Car e Provider Serum, Clara Garland MD Primary Care Provider Serum, Clara Garland MD Unavailable [phone] Serum, Clara Garland MD Unavailable [phone] Denise Woodson Ra, APRN EMBLEM FUSER TENDER Unavailable + [phone] Denise Woodson Ra, APRN EMBLEM FUSER TENDER Primary Care Provid er Usha Simon APRN EMBLEM FUSER TENDER Unavailable [phone]- [phone] Dangelo Salinas MD Unavailable Encounter Details Date Type Department Care Team (Late st Contact Info) Description 01/30/2006 [facility] [place] Inpatient Dept [address] [place] [address] Frw, Inpatient Provider Social History Tobacco Use [...] pain. PROCEDURE: TOTAL VAGINAL HYSTERECTOMY. SURGEON: Chris ELECTRICAL APPLIANCE SERVICER: Radha ANESTHESIA: Spinal ESTIMATED BLOOD LOSS: 100 [...] and in good condition. Timmy Perez M.D. S/bianca cc: documented in this encounter Plan of Treatment Upcoming Encounters Date Type Department Care Team (Late st Contact Info) Description 02/03/2024 8:45 AM CDT Therapy Visit [address] [phone] Denise Woodson Ra, SUPERVISOR [employer]IERS EMBLEM FUSER TENDER [address] [place] [address] Addis Rojas, PT [facility] [address] [place] [address] 02/04/2024 PRE VISIT [facility] Neurology [address] [phone] Raul Hoyos MD [address] [place] [address] 387595 *-*INCOMING RECORDS*-* 02/04/2024 11:00 AM CDT Virtual Visit [facility] Neurology [address] [phone] Raul Hoyos MD [address] [place] [address] 02/06/2024 8:30 AM CDT Office Visit [facility] [address] [place] [phone] Denise Woodson Ra, SUPERVISOR [employer] CASHIERS EMBLEM FUSER TENDER [address] [place] [address] 02/07/2024 2:00 PM CDT Therapy Visit [address] [phone] Danya You, AMAIRANI 2450 [facility] 213 [place] [address] Charis Chacon SLP [facility] [address] [place] [address] 02/14/2024 12:45 PM CDT Therapy Visit [address] [phone] Danya You, PA 2450 [facility] 213 [place] [address] Isabel Beaulieu OTR [address] [address] 02/14/2024 2:00 PM CDT Therapy Visit [address] [phone] Danya You, PA 2450 [facility] 213 [place] [address] Charis Chacon SLP [place] [address] [place] [address] 02/14/2024 2:45 PM CDT Therapy Visit [address] [phone] Danya You, PA 2450 [facility] 213 [place] [address] Maria Eugenia Nguyen, PT 2155 [place] [address] 02/17/2024 2:45 PM CDT Therapy Visit [address] [phone] Danya You, PA [address] [place] [address] Aliya Kim, DIAMOND FINISHING SUPERVISOR [address] [address] 02/19/2024 3:00 PM CDT Therapy Visit [address] [phone] Danya You, PA [address] [address] Isabel Beaulieu, OTR [address] [address] 02/26/2024 2:15 PM CDT Therapy Visit [address] [phone] Danya You, PA [address] [address] Charis Chacon, JUAN [facility] [address] [place] [address] 02/26/2024 3:00 PM CDT Therapy Visit [address] [phone] Danya You PA [address] [address] Isabel Beaulieu, OTR [facility] 150 [place] [address] 02/27/2024 4:45 PM CDT Therapy Visit [facility] 150 [place] [phone] Danya You, PA [address] 953264 Vanessa Duggan, PT 03/05/2024 1:30 PM CDT Therapy Visit [address] [phone] Danya You, PA [address] 6[address] Isabel Beaulieu, OTR [facility] 150 [place] [address] 03/05/2024 3:15 PM CDT Therapy Visit [address] [phone] Danya You, PA [address] [address] Charis Chacon, JUAN [facility] [address] [place] [address] 03/05/2024 4:15 PM CDT Therapy Visit [facility] 150 [place] [phone] Danya You, PA [address] 525[address] Delicia George PT [address] [address] 03/11/2024 2:15 PM CDT Therapy Visit [address] [phone] Danya You, PA 2450 [facility] [address] [address] Isabel Beaulieu, OTR [address] [address] 03/11/2024 3:00 PM CDT Therapy Visit [address] [phone] Danya You, PA [address] [address] Charis Chacon, [facility] [address] [place] [address] 03/11/2024 4:15 PM CDT Therapy Visit [address] [phone] Danya You, PA [facility] [address] [address] Delicia Georeg, PT [facility] [address] [place] [address] 03/17/2024 1:30 PM CDT Therapy Visit [address] [phone] Danya You, PA 2450 [facility] 213 [place] [address] Isabel Beaulieu, OTR [address] [address] 03/17/2024 2:30 PM CDT Therapy Visit [address] [phone] Danya You, PA [address] [address] Charis Chacon SLP [facility] [address] [place] [address] 03/17/2024 4:00 PM CDT Therapy Visit [address] [phone] [place], [place] [address] 127894 Delicia George, PT [facility] [address] [place] [address] 03/23/2024 10:30 AM CDT Office Visit [facility] [address] [place] [phone] Denise Woodson Ra, SUPERVISOR [employer] CHECKERS [employer] CASHIERS [facility] [address] [place] [address] 03/26/2024 1:30 PM CDT Therapy Visit [address] [phone] Danya You, AMAIRANI [address] [place] [address] Isabel Beaulieu, OTR [facility] [address] [place] [address] 03/26/2024 2:30 PM CDT Therapy Visit [facility] 150 [place] [phone] Danya You, PA [address] [address] Charis Chacon, [facility] [address] [place] [address] 03/26/2024 3:30 PM CDT Therapy Visit [address] [phone] Danya You, PA [address] 946414 Delicia George, PT [facility] [address] [place] [address] 04/02/2024 2:15 PM CDT [facility] 150 [place] [phone] Danya You, PA [address] [address] Isabel Beaulieu, OTR [facility] 150 [place] [address] 04/02/2024 3:15 PM CDT Therapy Visit [address] [phone] Danya You PA [address] [place] [address] Charis Chacon SLP [facility] [address] [place] [address] 04/02/2024 4:15 PM CDT Therapy Visit [address] [phone] Danya You PA [address] [address] Delicia George, PT [address] [address] 04/09/2024 3:15 PM CDT Therapy Visit [address] [phone] Danya You PA [facility] [address] [place] [address] [address] Charis Chacon SLP [facility] [address] [place] [address] 04/09/2024 4:15 PM CDT Therapy Visit [address] [phone] Danya You PA [facility] [address] [place] [address] [address] Delicia George, PT [address] [place] [place] [address] 04/15/2024 9:30 AM CDT Therapy Visit [address] [address] Danya You, PA [address] [address] Danya Restrepo DIAMOND FINISHING SUPERVISOR 04/23/2024 2:30 PM CDT Therapy Visit [address] [phone] Danya You, PA [address] [address] Charis Chacon, J[facility]AN [facility] [address] [place] [address] 06/23/2024 11:00 AM CDT Virtual Visit [facility] 6401 [place] [address] Kristin Vázquez, [facility] 3169 [place] [address] 06/30/2024 2:00 PM CDT Virtual Visit [facility] [address] [place] [address] Kristin Vázquez, [facility] 6[address] [place] [address] documented as of this encounter Visit Diagnoses Not on filedocumented in this encounter Care Teams Hospital Account Liaison Relationship Specialty Start Date End Date Timmy Perez MD PCP - Obstetrics/Gynecology 03/02/08 08/07/15 Yung Madrigal MD RETIRED PCP - Orthopaedics Orthopedics 08/26/12 01/20/24 Frw, None PCP - General Family Practice 08/26/12 05/03/13 Winston Villatoro, OD [facility] [place] [address] [place] [address] PCP - Ophthalmology Ophthalmology 02/11/[address] [facility] [place] [address] [place] [address] PCP - General Family Practice 05/04/13 10/25/16 Westley Bates MD XXX RETIRED XXX [address] [place] [address] PCP - ENT Otolaryngology 05/14/13 07/28/18 GeorginaAlessandra Gómez APRN EMBLEM FUSER TENDER 3305 [facility] [place] [address] PCP - General Nurse Practitioner 10/26/16 02/06/17 Clara Cornell MD [address] [facility] [place] [address] PCP - General Internal Medicine 02/07/17 09/20/20 Clara Cornell MD 8675 [place] [address] PCP - Assigned PCP 01/17/17 11/18/18 Denise Woodson Ra, SUPERVISOR [employer] EMBLEM FUSER TENDER [address] [address] [place] [address] PCP - General Family Practice 09/21/20 Clara Cornell MD 8675 [place] [address] Assigned PCP 01/17/17 07/16/20 Denise Woodson Ra, APRN EMBLEM FUSER TENDER [address] [place] [address] Assigned PCP 07/17/20 Usha Simon APRN EMBLEM FUSER TENDER 909 [facility] [address] Nurse Practitioner Neurological Surgery 01/24/24 Dangelo Salinas MD [address] [place] [address] Neurology 01/27/24 documented as of this encounter
--- OUTSIDE RECORDS SUMMARY | 2024-01-31 12:12 | XMS_ITS ---
Author Name Unknown Organization [facility] Address [address] [place] [address] Care Team Providers Care Real Estate Account Executive Name Role Phone Winston Villatoro OD Unavailable [phone] Denise Woodson Ra, APRN SCOUT Unavailable [phone] Denise Woodson Ra, APRN SCOUT Primary Care Provid er Usha Simon APRN SCOUT Unavailable [phone] Dangelo Salinas MD Unavailable Transitional Care Management Status:Enrolled (Active) Start date:01/27/2024 Enrollment date:01/28/2024 Continued Care and Services Coordination
--- OUTSIDE RECORDS SUMMARY | 2024-01-31 12:12 | XMS_ITS | Encounter Summary ---
Author Name Unknown Organization [place] Address [address] [place] [address] Care Team Providers Care Quality Control Projectionist Name Role Phone Timmy Perez MD Unavailable Unavailable Yung Madrigal MD Unavailable Unavailable Frw, None Primary Care Provider Unavailabl e Winston Villatoro OD Unavailable [phone] Apple Sykes MD Primary Care Provider [phone] Westley Bates MD Unavailable [phone] Alessandra Cabrales APRN ORTHODONTIC BAND MAKER Primary Car e Provider Serum, Clara Garland MD Primary Care Provider Serum, Clara Garland MD Unavailable [phone] Serum, Clara Garland MD Unavailable [phone] Denise Woodson Ra, APRN ORTHODONTIC BAND MAKER Unavailable + [phone] Denise Woodson Ra, APRN ORTHODONTIC BAND MAKER Primary Care Provid er Usha Simon APRN ORTHODONTIC BAND MAKER Unavailable [phone] Dangelo Salinas MD Unavailable Encounter Details Date Type Department Care Team (Late st Contact Info) Description 01/31/2006 [facility] [place] MODEL SET ARTIST [address] [place] [phone] Timmy Perez MD Social History Tobacco Use [...] Description 02/03/2024 8:45 AM CDT Therapy Visit [address] [phone] Denise Woodson Ra, CLAIMS SUPERVISOR ORTHODONTIC BAND MAKER [address] [facility] [place], [place] [phone] Addis Rojas, PT [facility] [address] [place] [address] 02/04/2024 PRE VISIT [facility] Neurology [address] [phone] Raul Hoyos MD [address] [place] [address] *-*INCOMING RECORDS*-* 02/04/2024 11:00 AM CDT Virtual Visit [facility] Neurology [address] [phone] Raul Hoyos MD [address] [place] [address] 02/06/2024 8:30 AM CDT Office Visit [facility] [address] [place] [phone] Denise Woodson Ra, CLAIMS SUPERVISOR ORTHODONTIC BAND MAKER [address] [place], [place] 2513[address] 02/07/2024 2:00 PM CDT Therapy Visit [facility] [address] [place] [address] Danya You, AMAIRANI 2450 [facility] 213 [place] [address] Charis Chacon, JUAN [facility] [address] [place] [address] 02/14/2024 12:45 PM CDT Therapy Visit [address] [phone] Danya You, AMAIRANI 2450 [facility] 213 [place] [address] Isabel Beaulieu OTR [address] [address] 02/14/2024 2:00 PM CDT Therapy Visit [address] [phone] Danya You, PA 2450 [facility] [address] [place] [address] Charis Chacon, JUAN [facility] [address] [place] [address] 02/14/2024 2:45 PM CDT Therapy Visit [address] [phone] Danya You, PA 2450 [facility] [address] [place] [address] Maria Eugenia Nguyen, PT 2[address] [place] [address] 02/17/2024 2:45 PM CDT Therapy Visit [address] [phone] Danya You, AMAIRANI [address] [place] [address] Aliya Kim, AGENCY SALES MANAGEMENT ASSISTANT [address] [facility] 200 [place] [address] 02/19/2024 3:00 PM CDT Therapy Visit [address] [phone] Danya You, AMAIRANI 2450 [facility] [address] [address] Isabel Beaulieu OTR [facility] [address] [address] 02/26/2024 2:15 PM CDT Therapy Visit [address] [phone] Danya You, PA [address] [address] Charis Chacon, JUAN [facility] [address] [place] [address] 02/26/2024 3:00 PM CDT Therapy Visit [address] [phone] Danya You PA 2450 [facility] [address] [place] [address] Isabel Beaulieu OTR [facility] [address] [place] [address] 02/27/2024 4:45 PM CDT Therapy Visit [facility] 150 [place] [address] Danya You, PA [address] 497934 Vanessa Duggan, PT 03/05/2024 1:30 PM CDT Therapy Visit [address] [phone] Danya You, PA [address] 769[address] Isabel Beaulieu, OTR [facility] 150 [place] [address] 03/05/2024 3:15 PM CDT Therapy Visit [address] [phone] Danya You, PA [address] 367414 Charis Chacon, AGENCY SALES MANAGEMENT ASSISTANT [facility] [address] [place] [address] 03/05/2024 4:15 PM CDT Therapy Visit [address] [phone] Danya You, PA [address] [address] Delicia George, PT [facility] [address] [place] [address] 03/11/2024 2:15 PM CDT Therapy Visit [address] [phone] Danya You, AMAIRANI [address] [place] [address] Isabel Beaulieu, OTR [address] [address] 03/11/2024 3:00 PM CDT Therapy Visit [address] [phone] Danya You, PA [address] [address] Charis Chacon, [facility] [address] [place] [address] 03/11/2024 4:15 PM CDT Therapy Visit [address] [phone] Danya You, PA [address] [address] Delicia George, PT [facility] [address] [place] [address] 03/17/2024 1:30 PM CDT Therapy Visit [address] [phone] Danya You PA [address] [place] [address] Isabel Beaulieu, OTR [address] [address] 03/17/2024 2:30 PM CDT Therapy Visit [address] [phone] [place] [address] [address] Charis Chacon, [facility] [address] [place] [address] 03/17/2024 4:00 PM CDT Therapy Visit [address] [phone] Danya You, [place] [address] 666514 Delicia George, PT [facility] [address] [place] [address] 03/23/2024 10:30 AM CDT Office Visit [facility] [address] [place] [phone] Denise Woodson Ra, CLAIMS SUPERVISOR [facility] [address] [place] [address] 03/26/2024 1:30 PM CDT Therapy Visit [address] [phone] Danya You, PA [address] [facility] [address] [address] [place] [address] Isabel Beaulieu, OTR [facility] [address] [place] [address] 03/26/2024 2:30 PM CDT Therapy Visit [address] [phone] Danya You, AMAIRANI [address] [address] Charis Chacon, [facility] [address] [place] [address] 03/26/2024 3:30 PM CDT Therapy Visit [address] [phone] Danya You PA [address] [address] Delicia George, PT [facility] [address] [place] [address] 04/02/2024 2:15 PM CDT Therapy Visit [address] [phone] Danya You PA [address] [place] [address] Isabel Beaulieu, OTR [facility] [address] [place] [address] 04/02/2024 3:15 PM CDT Therapy Visit [address] [address] Danya You PA [address] [address] [address] Charis Chacon SLP [facility] [address] [place] [address] 04/02/2024 4:15 PM CDT Therapy Visit [address] [phone] Danya You, AMAIRANI 2450 [facility] [address] [address] Delicia George, PT [address] [address] 04/09/2024 3:15 PM CDT Therapy Visit [address] [phone] Danya You, PA [address] [address] Charis Chacon, JUAN [facility] [address] [place] [address] 04/09/2024 4:15 PM CDT Therapy Visit [address] [phone] Danya You PA [facility] [address] [address] Delicia George, PT [address] [address] 04/15/2024 9:30 AM CDT Therapy Visit [facility] [address] [place] [address] Danya You, PA [address] [address] Danya Restrepo, AGENCY SALES MANAGEMENT ASSISTANT 04/23/2024 2:30 PM CDT Therapy Visit [address] [phone] Danya You, PA [address] [address] Charis Chacon, [facility] [address] [place] [address] 06/23/2024 11:00 AM CDT Virtual Visit [facility] [place] [address] [place] [address] Kristin Vázquez, [facility] [address] [place] [address] 06/30/2024 2:00 PM CDT Virtual Visit [facility] 6401 [place] [address] Kristin Vázquez, [facility] [place] [address] [place] [address] documented as of this encounter Visit Diagnoses Not on filedocumented in this encounter Care Teams Quality Control Projectionist Relationship Specialty Start Date End Date Timmy Perez MD PCP - Obstetrics/Gynecology 03/02/08 08/07/15 Yung Madrigal MD RETIRED PCP - Orthopaedics Orthopedics 08/26/12 01/20/24 Frw, None PCP - General Family Practice 08/26/12 05/03/13 Shauna Winston Se, OD [facility] [place] [address] [place] [address] PCP - Ophthalmology Ophthalmology 02/11/13 Apple Sykes MD [facility] [address] [place] [address] PCP - General Family Practice 05/04/13 10/25/16 Westley Bates MD XXX RETIRED XXX [address] [place] [address] PCP - ENT Otolaryngology 05/14/13 07/28/18 GeorginaAlessandra Celeste APRN ORTHODONTIC BAND MAKER 3305 [facility] [place] [address] PCP - General Nurse Practitioner 10/26/16 02/06/17 Clara Cornell MD 3[address] [facility] [place] [address] PCP - General Internal Medicine 02/07/17 09/20/20 Clara Cornell MD [address] [facility] [place] [address] PCP - Assigned PCP 01/17/17 11/18/18 Denise Woodson Ra, CLAIMS SUPERVISOR ORTHODONTIC BAND MAKER [address] [place] [address] PCP - General Family Practice 09/21/20 Clara Cornell MD 8675 [place] [address] Assigned PCP 01/17/17 07/16/20 Denise Woodson Ra, APRN ORTHODONTIC BAND MAKER [address] [place] [address] Assigned PCP 07/17/20 Usha Simon APRN ORTHODONTIC BAND MAKER 909 [facility]2121[place], [place] [address] Nurse Practitioner Neurological Surgery 01/24/24 Dangelo Salinas MD [address] [place] [address] Neurology 01/27/24 documented as of this encounter
[2024-01-31 12:26] LABS: PCR FLU A Negative PCR FLU A (Negative); PCR FLU B Negative PCR FLU B (Negative); PCR RSV Negative PCR RSV (Negative); SARS PCR* Negative SARS-CoV-2 (Negative)
[2024-01-31 13:10] VITALS: BP 163/91; PULSE 71; RESP 20; TEMP 36.3
== END 2024-01-31 12:50 | disposition home or self-care (01) ==
PROVIDERS: Emergency Provider Family Medicine; PCP Family Medicine
DX: R05.9 Cough, unspecified (principal); R07.89 Other chest pain
CPT/HCPCS: 71045; 87631; 99284

== ENCOUNTER 2024-02-02 21:38 | Emergency (ER) | payer OTHER, SELFPAY ==
[2024-02-02] VITALS (11 sets, daily range): BP systolic 143–163; BP diastolic 79–88; PULSE 66–88; RESP 16; TEMP 36.7; O2SAT 94–99
--- NOTE | 2024-02-02 21:49 | CT_ITS ---
Patient: CHRISTOPHER TY Facility:?[facility] Patient ID:?[id number] Site Patient ID:?[id number]. Site :?[id number] Study:?CT-Head W/O-02/02/2024 10:11:51 PM Ordering Physician:MYKE Final Report: Indication: Left-sided weakness Technique: CT head without IV contrast Comparison: CT head on January 14, 2024 and priors Findings: Brain Parenchyma: No acute infarct, acute intracranial hemorrhage, mass effect, or midline shift. Ventricles: No hydrocephalus. Extra-axial Spaces: No abnormal fluid collection. Paranasal sinuses: No significant mucosal thickening. Orbits: Unremarkable. Mastoid Sinuses: Unremarkable. Cranium: No acute fracture. Soft tissues: Unremarkable. Impression: No evidence of an acute intracranial process. Please note that all CT scans at this facility use dose modulation, iterative reconstruction, and/or weight-based dosing when appropriate to reduce radiation dose to as low as reasonably achievable. Dictated by Jonathan Oneill MD @ 02/02/2024 10:30:34 PM Signed by:?Jonathan Oneill MD @02/02/2024 10:30:34 PM (Electronic Signature)
--- NOTE | 2024-02-02 21:56 | ED_ITS ---
HPI - General Adult General Chief complaint: Weakness Stated complaint: left side weakness Time Seen by Provider: 02/02/24 21:49 History of Present Illness HPI narrative: patient with Hx of stroke with R sided weakness, recently DC from acute rehab and felt her symptoms had almost completely resolved. today starting about 2 hours ago she noticed tingling and numbness on her L side and weakness all over. does not have a weak side in triage. repots feeling generally bad and off. 48-year-old woman presenting to the emergency department with concern of recurrent stroke. Has been feeling off all day. But 2 hours ago was feeling more tingly through her right leg then her right arm into her right then left face and then involving now over the last hour her left side more specifically her left leg. Significant other has noticed her being increasingly ?jittery? shaky. Was globally weak and needing assistance up from the couch. Did need assistance to ambulate described tipping to the right. In late December was admitted through this facility following a postprocedural CVA following cerebral angiography for history of left-sided pulsatile tinnitus and an enlarged left occipital artery by CTA. On 01/09/24 catheter angiogram at [facility] had showed left sigmoid dural arteriovenous fistula. Underlying history of Lizy-Danlos and fibromuscular dysplasia. Following this CVA also had a suspected seizure. Transferred for rehab then progressing well with a 2nd ?seizure like event?. Has continued on Keppra and aspirin therapy. Concern is partly related to the tingling that has been feeling in the right leg and arm is similar to stroke presentation as she describes it. Discoordination of the right arm in particular was a major feature as well. Related Data Home Medications ?Medication ?Instructions ?Recorded ?Confirmed fluticasone furoate 200 1 inh inhalation DAILY 07/03/22 01/31/24 mcg-vilanterol 25 mcg/dose inhalation powder (Breo Ellipta) albuterol sulfate 90 mcg/actuation 2 puff inhalation Q6H PRN 08/01/22 01/31/24 aerosol inhaler magnesium 250 mg tablet 250 mg PO HS 08/02/22 01/31/24 trazodone 100 mg tablet 100 mg PO HS sleep 08/02/22 01/31/24 cetirizine 10 mg tablet (Zyrtec) 10 mg PO DAILY 10/08/23 01/31/24 levetiracetam 750 mg tablet 750 mg PO BID 01/31/24 01/31/24 rosuvastatin 20 mg tablet 20 mg PO QPM 01/31/24 01/31/24 Previous Rx's ?Medication ?Instructions ?Recorded ketorolac 10 mg tablet 10 mg PO Q6H PRN pain 5 days #20 07/03/22 tabs prednisone 20 mg tablet 20 mg PO BID #6 tabs 01/31/24 Allergies Allergy/AdvReac Type Severity Reaction Status Date / Time bupropion Allergy Intermediate Diarrhea Verified 01/31/24 11:23 codeine Allergy Intermediate epigastric Verified 01/31/24 11:23 pain erythromycin base Allergy Intermediate stomach Verified 01/31/24 11:23 upset, diarrhea Review of Systems Status of ROS: Reports: 6 or more systems reviewed and unremarkable except as noted in History and below [facility] Medical History Headache ?R51.9 - Headache, unspecified (ICD-10) Asthma ?J45.909 - Unspecified asthma, uncomplicated (ICD-10) History of blood transfusion (1994) ?Z92.89 - Personal history of other medical treatment (ICD-10) History of vitamin D deficiency ?Z86.39 - Personal history of other endocrine, nutritional and metabolic disease (ICD-10) Anxiety and depression ?F41.9 - Anxiety disorder, unspecified (ICD-10) ?F32.A - Depression, unspecified (ICD-10) Fibromyalgia ?M79.7 - Fibromyalgia (ICD-10) Mild persistent asthma ?J45.30 - Mild persistent asthma, uncomplicated (ICD-10) H/O bronchopulmonary dysplasia ?Z87.09 - Personal history of other diseases of the respiratory system (ICD- 10) Stage 1 chronic kidney disease (11/16/20) ?N18.1 - Chronic kidney disease, stage 1 (ICD-10) Simple renal cyst (10/2020) ?N28.1 - Cyst of kidney, acquired (ICD-10) 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, unspecified (ICD-10) Asthma ?J45.909 - Unspecified asthma, uncomplicated (ICD-10) Surgical History History of laparoscopy ?Z98.890 - Other specified postprocedural states (ICD-10) S/P dilation and curettage (1994) ?Z98.890 - Other specified postprocedural states (ICD-10) H/O tubal ligation ?Z98.51 - Tubal ligation status (ICD-10) Status post excision of lipoma (2011) ?Z98.890 - Other specified postprocedural states (ICD-10) ?Z86.018 - Personal history of other benign neoplasm (ICD-10) History of medial meniscus repair of left knee (08/04/13) ?Z98.890 - Other specified postprocedural states (ICD-10) History of laparoscopic cholecystectomy (09/29/20) ?Z90.49 - Acquired absence of other specified parts of digestive tract (ICD- 10) History of hysterectomy for benign disease (2005) ?Z90.710 - Acquired absence of both cervix and uterus (ICD-10) History of catheter-based closure of atrial septal defect (06/2006) ?Z87.74 - Personal history of (corrected) congenital malformations of heart and circulatory system (ICD-10) Family History Maternal Grandmother Stroke Paternal Grandfather Diabetes Daughter Depression Social History Narrative: She recently moved to [place]. 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 She has a college education She exercises 5 days a week with walking in treadmill 2M She does not smoke She does not drink alcohol or use recreational drugs What is your current living situation?: I presently have a place to live Problems where you live: no known problems Problems where you live details: na In the past 12 months, utilities in danger of being shut off: no In past 12 months, lack of transportation kept you from medical appts, meetings, work, or getting things needed for daily living: no In the past 12 mos, have been you worried that your food would run out before you had money to buy more?: never true In the past 12 mos, the food you bought just didn't last and you didn't have money to buy more?: never true Highest level of school completed/degree received: Associate degree: occupational, technical, vocational program Smoking Status: Never smoker Do you use any of these nicotine containing products: None Second hand tobacco smoke exposure: No How often do you have a drink containing alcohol: never How often do you have six or more drinks on one occasion: Never AUDIT-C Alcohol total score: 0 Non-prescribed substance use: denies use Caffeine: Yes How often does anyone, including family, friends and others, physically hurt you : never How often does anyone, including family, friends and others, insult or talk down to you: never How often does anyone, including family, friends and others, threaten you with harm: never How often does anyone, including family, friends and others, scream or curse at you: never Little interest or pleasure in doing things: not at all Feeling down, depressed, or hopeless: not at all Are you using contraception or practicing any form of control: Yes (hysterectomy) service: No Exam Narrative: Exam Narrative: On initial evaluation is generally shaky. She is distracted and not responding very well to questioning. Does appear to be moving all extremities with good strength albeit shaky. Cranial nerves 2-12 look to be intact. Breathing easily lungs appear to be clear. Heart is in regular rate and rhythm. Extremities are well perfused without edema. Const: Vital Signs, click to edit/add: Vital Signs - 24 hr 02/02/24 21:56 02/02/24 21:58 02/02/24 22:00 Temperature 98.1 F Pulse Rate 87 80 Pulse Rate [Pulse Oximeter] 81 Respiratory Rate 16 Blood Pressure Blood Pressure [Ri ght Upper Arm] 163/88 H Pulse Oximetry 96 98 97 Oxygen Delivery Me thod Room Air 02/02/24 22:16 02/02/24 22:30 02/02/24 22:45 Temperature Pulse Rate 88 75 78 Pulse Rate [Pulse Oximeter] Respiratory Rate Blood Pressure Blood Pressure [Ri ght Upper Arm] Pulse Oximetry 97 94 95 Oxygen Delivery Me thod 02/02/24 23:00 02/02/24 23:15 02/02/24 23:30 Temperature Pulse Rate 66 69 70 Pulse Rate [Pulse Oximeter] Respiratory Rate Blood Pressure Blood Pressure [Ri ght Upper Arm] Pulse Oximetry 96 96 95 Oxygen Delivery Me thod 02/02/24 23:37 02/02/24 23:45 02/03/24 00:00 Temperature Pulse Rate 76 80 92 Pulse Rate [Pulse Oximeter] Respiratory Rate Blood Pressure 143/79 H Blood Pressure [Ri ght Upper Arm] Pulse Oximetry 96 99 98 Oxygen Delivery Me thod 02/03/24 00:01 02/03/24 00:32 Temperature Pulse Rate Pulse Rate [Pulse Oximeter] Respiratory Rate Blood Pressure 158/110 H 158/93 H Blood Pressure [Ri ght Upper Arm] Pulse Oximetry Oxygen Delivery Me thod Documenting provider has reviewed patient's vital signs: yes Course Vital Signs Vital signs: Initial Vital Signs Pulse Rate 87 02/02/24 21:56 Pulse Oximetry 96 02/02/24 21:56 Vital Signs Pulse Rate 87 02/02/24 21:56 Pulse Oximetry 96 02/02/24 21:56 Temperature 98.1 F 02/02/24 21:58 Pulse Rate 92 02/03/24 00:00 Respiratory Rate 16 02/02/24 21:58 Blood Pressure 158/93 H 02/03/24 00:32 Pulse Oximetry 98 02/03/24 00:00 Oxygen Delivery Method Room Air 02/02/24 21:58 Medications Administered Medications: Discontinued Medications Generic Name Dose Route Start Last Admin Trade Name Freq PRN Reason Stop Dose Admin Sodium Chloride 1,000 mls @ 1,000 mls/hr 02/02/24 21:54 02/02/24 23:17 0.9 % Sodium Chloride 1000 Ml IV 02/02/24 22:53 Infused .Q1H ONE Infusion Lorazepam 0.5 mg 02/02/24 22:04 02/02/24 21:58 Lorazepam 2 Mg/Ml Inj IVP 02/02/24 22:05 0.5 mg ONCE ONE Administration Medical Decision Making MDM Narrative Medical decision making narrative: The global nature of presentation and symptom description as well as the marching of these symptoms I think is less likely to be ischemic event. Admittedly did have rather unusual presentations historically. She is here as recommended for new symptoms. I think symptoms are more consistent with possibly aura/seizure prodrome possibly exacerbated by anxiety. But given unusual presentation historically would do at least initial head CT. MRI is not available at this time. I do not know that CTA studies given findings on extensive imaging already would be of further benefit. More shaky than week. Subjective symptoms as described. NIH stroke scale would score quite low other than altered mental status more than anything. IV is initiated. Given normal saline and IV lorazepam. Sent to non contrasted head CT. I did review head CT noting no acute abnormality. Radiology over-read as below Study:?CT-Head W/O-02/02/2024 10:11:51 PM Ordering Physician:MYKE Final Report: Indication: Left-sided weakness Technique: CT head without IV contrast Comparison: CT head on January 14, 2024 and priors Findings: Brain Parenchyma: No acute infarct, acute intracranial hemorrhage, mass effect, or midline shift. Ventricles: No hydrocephalus. Extra-axial Spaces: No abnormal fluid collection. Paranasal sinuses: No significant mucosal thickening. Orbits: Unremarkable. Mastoid Sinuses: Unremarkable. Cranium: No acute fracture. Soft tissues: Unremarkable. Impression: No evidence of an acute intracranial process. On reassessment appears to be clearing already. Is more easily conversant. Has accurate point to point and heel to mast. Did discuss this case with Stroke Neuro on-call who is quite familiar with initial case. Given marching nature of symptoms and bilaterality as well as improving status, doubt ischemic event. I am unable to locate results of EEG testing but Jose is clear that EEG testing ultimately was negative. Suspect safe for discharge but I would offer however admission for MRI in the morning considering complicated history. TSH nearing 10. Can discuss this further in primary care as to whether not would want to initiate replacement. Continues to clear. Moving extremities smoothly now with good strength. Laughing easily. Is markedly more alert than I have ever seen her before. Jose describes embarrassment at recurrent visits. I think we can offer reassurance here today. Discuss admission versus discharge. She is wondering if there might be something that she can take if having recurrent episode. Discussed potential benefit of benzodiazepine. Ultimately she decides to go h ome with medication and follow-up as needed. Medical Records Medical records reviewed: Yes I reviewed the patient's medical records Lab Data Lab results reviewed: Yes I reviewed the patient's lab results Labs: Lab Results 02/02/24 02/02/24 Range/Units 21:51 22:52 WBC 8.46 (4.50-11.00) K/uL RBC 4.75 (4.00-5.20) m/uL Hgb 14.5 (12.0-16.0) gm/dL Hct 43.5 (33.0-51.0) % MCV 92 (80-100) fL MCH 31 (26-34) pg MCHC 33 (32-36) gm/dL RDW Coeff of [place]ár[place] 12.1 (11.5-15.5) % Plt Count 211 (140-440) K/uL Neut % (Auto) 53.4 (42.0-72.0) % Lymph % (Auto) 35.7 (20-44) % [place] % (Auto) 6.3 (0.0-11.0) % Eos % (Auto) 4.0 (0.0-7.0) % Baso % (Auto) 0.4 (0.0-3.0) % Neut # (Auto) 4.52 (1.7-7.0) K/uL Lymph # (Auto) 3.02 H (0.90-2.90) K/uL [place] # (Auto) 0.50 (0.00-0.90) K/UL Eos # (Auto) 0.34 (0.00-0.50) K/uL Baso # (Auto) 0.03 (0.00-0.30) K/uL Abs Immat Gran (auto) 0.02 (0.00-0.30) K/uL Imm/Tot Granulo (auto) 0.2 % Sodium 139 (135-149) mmol/L Potassium 4.0 (3.6-5.1) mmol/L Chloride 103 (96-114) mmol/L Carbon Dioxide 29 (20-32) mmol/L Anion Gap 7 (7-15) mEq/L BUN 16 (5-24) mg/dL Creatinine 0.7 (0.5-1.5) mg/dL Estimated GFR 107 ml/min Glucose 99 (60-115) mg/dL Calcium 9.6 (8.4-10.6) mg/dL Magnesium 1.9 (1.5-2.6) mg/dL C-Reactive Protein 0.9 (0.5-1.0) mg/dL TSH 9.360 H (0.270-4.20) uIU/mL Urine Color Yellow (Yellow) Urine Appearance Clear (Clear) Urine pH 7.0 (5.0-8.5) Ur Specific [place] 1.010 (1.000-1.030) Urine Protein Negative (Negative) Urine Glucose (UA) Negative (Negative) Urine Ketones Negative (Negative) Urine Blood Trace-lysed A (Negative) Urine Nitrite Negative (Negative) Urine Bilirubin Negative (Negative) Urine Urobilinogen 0.2 (0.2-1.0) Ur Leukocyte Esterase Negative (Negative) Urine RBC 0-2 (0-2) Urine WBC 0-2 (0-5) Ur Squamous Epith Cells Few (None-Few) Urine Bacteria None (None) ECG Data Attestation: I personally reviewed and interpreted this ECG as follows: (Sinus rhythm. Rate of 86. PVCs are present. No coupling ) Discharge Plan Discharge Clinical Impression: Paresthesia, Discoordination Patient Disposition: Home w/ Parent or Adult Condition: Improved Additional Instructions: Yes. Perhaps lorazepam might be beneficial for all the reasons we discussed. If however your symptoms are continuing after an hour after taking this medication, would return to the emergency department or more immediately if you clearly have one-side weakness. Really. It was nice to see you. And nice to see you so improved. Good luck in therapy tomorrow. Lorazepam from [facility] Prescriptions: No Action cetirizine [Zyrtec] 10 mg tablet 10 mg PO DAILY albuterol sulfate 90 mcg/actuation HFA aerosol inhaler 2 puff inhalation Q6H PRN magnesium 250 mg tablet 250 mg PO HS levetiracetam 750 mg tablet 750 mg PO BID rosuvastatin 20 mg tablet 20 mg PO QPM prednisone 20 mg tablet 20 mg PO BID Qty: 6 0RF fluticasone furoate-vilanterol [Breo Ellipta] 200-25 mcg/dose blister with device 1 inh INHALATION DAILY ketorolac 10 mg tablet 10 mg PO Q6H PRN (Reason: pain) 5 Days Qty: 20 0RF trazodone 100 mg tablet 100 mg PO HS Follow Up/Referrals: Keira Irvin MD [Primary Care Provider] - Stand Alone Forms: [facility] Info Instructions
[2024-02-02] MEDS: LORazepam 2 MG/ML inj 0.5 MG IVP (21:58)
[2024-02-02] MEDS: 0.9 % SODIUM CHLORIDE 1000 ml 1,000 ML IV (22:03)
[2024-02-02 22:04] LABS: Basophils Absolute Auto 0.03 K/uL (0.00-0.30); Basophils Percent Auto 0.4 % (0.0-3.0); Eosinophils Absolute Auto 0.34 K/uL (0.00-0.50); Hematocrit 43.5 % (33.0-51.0); Hemoglobin* 14.5 gm/dL (12.0-16.0); Immature Granulocytes Abs Auto 0.02 K/uL (0.00-0.30); Immature Granulocytes Pct Auto 0.2 %; Lymphocytes Absolute Auto 3.02 K/uL (0.90-2.90); Lymphocytes Percent Auto 35.7 % (20-44); Mean Corpuscular HGB Conc 33 gm/dL (32-36); Mean Corpuscular Hemoglobin 31 pg (26-34); Mean Corpuscular Volume 92 fL (80-100); Monocytes Percent Auto 6.3 % (0.0-11.0); Neutrophils Absolute Auto 4.52 K/uL (1.7-7.0); Neutrophils Percent Auto 53.4 % (42.0-72.0); Platelet Count* 211 K/uL (140-440); RDW Coefficient of Variation % 12.1 % (11.5-15.5); Red Blood Count 4.75 m/uL (4.00-5.20); White Blood Count* 8.46 K/uL (4.50-11.00)
[2024-02-02 22:09] LABS: Slide Review Reflex No
[2024-02-02 22:17] LABS: Chloride* 103 mmol/L (96-114); Sodium* 139 mmol/L (135-149)
[2024-02-02 22:20] LABS: Anion Gap 7 mEq/L (7-15); Carbon Dioxide* 29 mmol/L (20-32); Creatinine* 0.7 mg/dL (0.5-1.5); Estimated Glomerular Filt Rate 107 ml/min
[2024-02-02 22:21] LABS: Blood Urea Nitrogen* 16 mg/dL (5-24); Calcium* 9.6 mg/dL (8.4-10.6); Glucose* 99 mg/dL (60-115); Magnesium* 1.9 mg/dL (1.5-2.6)
[2024-02-02 22:23] LABS: C Reactive Protein* 0.9 mg/dL (0.5-1.0)
--- OUTSIDE RECORDS SUMMARY | 2024-02-02 22:30 | XMS_ITS | Continuity of Care Document ---
Author Name Unknown Organization [facility] Address [address] [address] [place] [address] Phone Care Team Providers Care Beef Trimmer Name Role Phone Unavailable Unavailable Unavailable Procedures Procedure Date Ugi Endo; Dx W/wo Collec Specm Advance Directives Directive Yes / No Effective Date File Name No Information Encounters Encounter Description Practice Location Reason(s) For Visit Diagnoses Date Provider Providers Copied on Encounter [facility], [address] [address], [place], [place], [id number], [place] tel:[phone] [facility] No Information 021 No Information [facility], [address] [address], [facility] [place], [id number], [place] tel:[phone] [facility] No Information [facility]21 [facility] [address] [address], [place], [place], [id number], [place] tel:[phone] No Information Unknown No Information Family History [...] Registry Payers Payer name Insurance type Covered democrat ID Authoriza tion(s) No Information Social History [...]
--- OUTSIDE RECORDS SUMMARY | 2024-02-02 22:30 | XMS_ITS | Clinical Summary ---
Author Name Unknown Organization [facility] Address [address] [place] [address] Care Team Providers Care Gill Box Operator Name Role Phone Darius Shaw M.D. Primary Care Provider [phone] Source Comments Patient records contain information from all sites at [facility]. For routine questions regarding patient records, call [phone] during business hours, M-F 8:00 AM - 5:00 PM Central Time. Record requests for emergency care only can be directed to [phone] at any time.[facility] Allergies Active Allergy Reactions Criticality Noted [...] Description 01/28/2024 Refill Department of Family Medicine, [facility], in [address] [place] [address] [id number] Darius Shaw M.D. Med Refill from Last [...] week 01/10/2023 How often do you attend pentecostal or mandaen serv ices? Never 01/10/2023 Do you belong to any clubs o r organizations such as pentecostal groups, unions, fraternal or athletic groups, or [...] Answer Date Recorded PHQ-2 Score 3 01/10/2023 [facility] - Occupational [...] 11/07/2011, 10/04/2011 Medical Devices Implanted Type Area Wood Treating Inspector Device Identifier Shelf Expiration Date Model / Serial / Lot Mesh Or Patch Mesh or Patch Heart Description:Amplatzer Septal Occluder Asd Closure Device 34mm - Sanders [id number] Implanted:Qty: 1 on 06/20/2006 Septal Defect Occluder Device Other/Legacy - See Implant Description Description:Device Manufactu rer - doggyloot. Device Status Text - [id number]. Procedures Procedure Name Priority Date/Time Associated Diagnosis Comments EXTI BASIC METABOLIC PANEL, FASTING, S Routine 01/21/2024 5:51 AM CDT BI BREAST SCREENING BILATERAL WITH TOMOSYNTHESIS RAD - Routine (most inpatients and all outpatients) 07/30/2023 2:38 PM [employer] Screening Mammogram Breast Cancer COLOGUARD Routine 10/28/2022 5:54 PM [employer] Screening Cancer Colon EXTI LIPID PANEL REFLEX TO DIRECT LDL Routine 07/27/2021 8:57 AM [employer] from Last 3 Months or Most Recently Relevant to Health Maintenance Results * BI Breast Screening Bilateral with Tomosynthesis (07/30/2023 2:38 PM [employer]) Anatomical Region Laterality Modality Breast, Breast Imaging RST L OS, Breast Imaging ARZ LOS, Breast Imaging FLA LOS Bilateral Mammography 08/01/2023 12:2 8 PM [employer] Impressions 08/01/2023 12:33 PM [employer] Negative. RECOMMENDATION: ??Annual Screening Mammogram ASSESSMENT: ??BI-RADS: 1: Negative. Narrative 08/01/2023 12:33 PM [employer] EXAM: ??BI BREAST SCREENING BILATERAL WITH TOMOSYNTHESIS [...] ASSESSMENT: BI-RADS: 1: Negative. Darius Shaw M.D. [facility] BI PROCEDURES * Cologuard-Sent Out Lab (10/28/2022 5:54 PM [employer]) Result Negative Negative 11/03/2022 2:48 AM [employer] EXLI Comment: NEGATIVE TEST RESULT. A negative [...] Gates et al, N Engl J Med 2014;370(14):5440-3687) The normal value (reference range) for this [...] Cancer Society Guideline for Colorectal Cancer Screening: https://www.cancer.org/cancer/uwyqu-ewdbyp-swzfpe/detection- diagnosis-staging/acs-recommendations.html.; Ming MARTINEZ, Barbra TREJO, Erna FRANK, Colorectal Cancer Screening: Recommendations for Physicians and Patients from the U.S. Multi-Society Task Force on Colorectal Cancer Screening , Am J Gastroenterology 2017; 112:1010-2107. TEST DESCRIPTION: Composite algorithmic analysis of stool [...] (Yenny Adkins al, N Engl J Med 2014;370(14):7350-9054.) Cologuard may produce a false negative or [...] can be accessed at the following location: www.[employer]/results. Additional description of the Cologuard test process, warnings and precautions can be found at www.[employer].[place]. Stool (Stool) 10/28/2022 5:5 4 PM [employer] 10/30/2022 1:57 PM [employer] Darius Shaw M.D. LAB BODY FLUIDS AND STOOLS ORDERABLES [employer] [address] [place] [address] EXLI [employer] [address] [facility], [address] [place] [address] from Last 3 Months or Most Recently Relevant to Health Maintenance Advance Directives For more information, please contact: [phone] * Full Code (Latest Code Status on File) Date Activated Date Inactivated Comments 09/30/2022 4:41 PM 10/02/2022 6:08 PM Question Answer Comments Full Code: Discussed Care Teams Gill Box Operator Relationship Specialty Start Date End Date Darius Shaw M.D. WES: [phone] [address] [phone] PCP - General Family Medicine 09/27/22
--- OUTSIDE RECORDS SUMMARY | 2024-02-02 22:30 | XMS_ITS | Referral Summary ---
Author Name Unknown Organization [facility] Address [address] [place] [address] Care Team Providers Care Lithographic Plate Maker Apprentice Name Role Phone Darius Shaw M.D. Primary Care Provider [phone] Source Comments Patient records contain information from all sites at [facility]. For routine questions regarding patient records, call [phone] during business hours, M-F 8:00 AM - 5:00 PM Central Time. Record requests for emergency care only can be directed to [phone] at any time.[facility] Encounters Date Type Department Care Team Description 01/28/2024 Refill Department of Family Medicine, [facility], in [address] [phone] Darius Shaw M.D. Med Refill from Last [...] week 01/10/2023 How often do you attend religion or mormon serv ices? Never 01/10/2023 Do you belong to any clubs o r organizations such as religion groups, unions, fraternal or athletic groups, or [...] on file Medical Devices Implanted Type Area Impact Retail Service Merchandiser Device Identifier Shelf Expiration Date Model / Serial / Lot Mesh Or Patch Mesh or Patch Heart Description:Amplatzer Septal Occluder Asd Closure Device 34mm - Sanders [id number] Implanted:Qty: 1 on 06/20/2006 Septal Defect Occluder Device Other/Legacy - See Implant Description Description:Device Manufactu rer - [email or web address]. Device Status Text - [id number]. Procedures Procedure Name Priority Date/Time Associated Diagnosis Comments EXTI BASIC METABOLIC PANEL, FASTING, S Routine 01/21/2024 5:51 AM CDT BI BREAST SCREENING BILATERAL WITH TOMOSYNTHESIS RAD - Routine (most inpatients and all outpatients) 07/30/2023 2:38 PM HAND ROLLER Screening Mammogram Breast Cancer COLOGUARD Routine 10/28/2022 5:54 PM HAND ROLLER Screening Cancer Colon EXTI LIPID PANEL REFLEX TO DIRECT LDL Routine 07/27/2021 8:57 AM HAND ROLLER from Last 3 Months or Most Recently Relevant to Health Maintenance Results * BI Breast Screening Bilateral with Tomosynthesis (07/30/2023 2:38 PM HAND ROLLER) Anatomical Region Laterality Modality Breast, Breast Imaging RST L OS, Breast Imaging ARZ LOS, Breast Imaging FLA LOS Bilateral Mammography 08/01/2023 12:2 8 PM HAND ROLLER Impressions 08/01/2023 12:33 PM HAND ROLLER Negative. RECOMMENDATION: ??Annual Screening Mammogram ASSESSMENT: ??BI-RADS: 1: Negative. Narrative 08/01/2023 12:33 PM HAND ROLLER EXAM: ??BI BREAST SCREENING BILATERAL WITH TOMOSYNTHESIS [...] * Cologuard-Sent Out Lab (10/28/2022 5:54 PM HAND ROLLER) Result Negative Negative 11/03/2022 2:48 AM HAND ROLLER EXLI Comment: NEGATIVE TEST RESULT. A negative [...] (Yenny Adkins al, N Engl J Med 2014;370(14):9468-0660) The normal value (reference range) for this assay is negative. COLOGUARD RE-SCREENING RECOMMENDATION: Periodic colorectal cancer screening is an important part of preventive healthcare for asymptomatic individuals at average risk for colorectal cancer. ??Following a negative Cologuard result, the [place] [employer] and U.S. Multi-Society Task Force screening guidelines recommend a Cologuard re-screening interval of 3 years. References: [place] [employer] Guideline for Colorectal Cancer Screening: https://www.cancer.org/cancer/xwvwm-rnizti-pyaymn/detection- diagnosis-staging/acs-recommendations.html.; Ming DK, Barbra CR, Erna SimsK, Colorectal Cancer Screening: Recommendations for Physicians and Patients from the U.S. Multi-Society Task Force on Colorectal Cancer Screening , Am J Gastroenterology 2017; 112:7642-2146. TEST DESCRIPTION: Composite algorithmic analysis of stool [...] (Yenny Adkins al, N Engl J Med 2014;370(14):2781-3500.) Cologuard may produce a false negative or false positive result (no colorectal cancer or precancerous polyp present at colonoscopy follow up). A negative Cologuard test result does not guarantee the absence of CRC or advanced adenoma (pre-cancer). The current Cologuard screening interval is every 3 years. ([place] [employer] and U.S. Multi-Society Task Force). Cologuard performance data in a 10,000 patient pivotal study using colonoscopy as the reference method can be accessed at the following location: www.[employer]quickhuddle/results. Additional description of the Cologuard test process, warnings and precautions can be found at www.[employer].com. Stool (Stool) 10/28/2022 5:5 4 PM HAND ROLLER 10/30/2022 1:57 PM HAND ROLLER Darius Shaw M.D. LAB BODY FLUIDS AND STOOLS ORDERABLES [facility] [address] [place] [address] EXLI [facility] [address] [facility], [address] [place] [address] from Last 3 Months or Most Recently Relevant to Health Maintenance Advance Directives For more information, please contact: [phone] * Full Code (Latest Code Status on File) Date Activated Date Inactivated Comments 09/30/2022 4:41 PM 10/02/2022 6:08 PM Question Answer Comments Full Code: Discussed Care Teams Lithographic Plate Maker Apprentice Relationship Specialty Start Date End Date Darius Shaw M.D. [id number] [phone] PCP - General Family Medicine 09/27/22
--- OUTSIDE RECORDS SUMMARY | 2024-02-02 22:30 | XMS_ITS ---
Author Name Unknown Organization [facility] Address [address] [place] [address] Care Team Providers Care Warp Starter Name Role Phone Unavailable Unavailable Unavailable Surgery Details Not on file Complications Check Surgery Details section. Procedure Estimated Blood Loss Check Surgery Details section. Procedure Findings Check Surgery Details section. Procedure Specimens Taken Check Surgery Details section.
--- OUTSIDE RECORDS SUMMARY | 2024-02-02 22:30 | XMS_ITS | Encounter Summary ---
Author Name Unknown Organization [facility] Address [address] [place] [address] Care Team Providers Care B Operator Name Role Phone Darius Shaw M.D. Primary Care Provider [phone]- [phone] Reason for Visit * Reason Comments Med Refill Encounter Details Date Type Department Care Team (Late st Contact Info) Description 01/28/2024 Refill Department of Family Medicine, [facility], in [address] [phone] Darius Shaw M.D. [address] [place] [phone] Med Refill Social History Tobacco Use Types [...] week 01/10/2023 How often do you attend sikh or tenriism serv ices? Never 01/10/2023 Do you belong to any clubs o r organizations such as sikh groups, unions, fraternal or athletic groups, or [...] Answer Date Recorded PHQ-2 Score 3 01/10/2023 [facility] - Occupational Stress Questionnaire Answer Date Recorded [...] documented as of this encounter Care Teams B Operator Relationship Specialty Start Date End Date Darius Shaw M.D. WES: [phone] [address] [place] [phone] PCP - General Family Medicine 09/27/22 documented as of this encounter
--- OUTSIDE RECORDS SUMMARY | 2024-02-02 22:30 | XMS_ITS | Encounter Summary ---
Author Name Unknown Organization [facility] Address [address] [place] [address] Care Team Providers Care Computer Support Specialist Instructor Name Role Phone Darius Shaw M.D. Primary Care Provider [phone] Encounter Details Date Type Department Care Team (Late st Contact Info) Description 05/12/2013 Historical Ophthalmology RST O[facility] Jonathan Bonilla M.D. [address] [place] [phone] Social History Tobacco Use Types Packs/Day Years [...] corneal thickness CDM Reports - EYEGEN Id: [id number] Status: Fnl documented in this encounter Plan of Treatment Not on file documented as of this encounter Visit Diagnoses Not on filedocumented in this encounter Additional Health Concerns Infection Onset Date Last Indicated Resolved Time COVID19 Pending 07/11/2020 07/11/2020 07/12/2020 5 :56 PM CDT COVID19 Pending 07/17/2020 07/17/2020 07/17/2020 9 :18 PM PILE DRIVER ENGINEER COVID19 Pending 09/19/2020 09/19/2020 10/09/2020 4 :45 AM PILE DRIVER ENGINEER COVID19 Pending 10/25/2020 10/26/2020 10/27/2020 9 :59 AM PILE DRIVER ENGINEER COVID19 Pending 06/03/2021 06/03/2021 06/03/2021 9 :40 AM CDT COVID19 Pending 06/03/2021 06/03/2021 06/03/2021 1 0:36 PM CDT COVID19 Pending 08/09/2021 08/09/2021 08/11/2021 1 2:57 AM PILE DRIVER ENGINEER COVID19 Pending 06/26/2022 06/26/2022 06/26/2022 5 :47 PM CDT Assessment Noted Time PHQ-9 Depression Total Score: 8 09/18/19 13 7:41 AM PILE DRIVER ENGINEER documented as of this encounter Care Teams Computer Support Specialist Instructor Relationship Specialty Start Date End Date Darius Shaw M.D. [address] [phone] PCP - General Family Medicine 09/27/22 documented as of this encounter
--- OUTSIDE RECORDS SUMMARY | 2024-02-02 22:31 | XMS_ITS | Clinical Summary ---
Author Name Unknown Organization [place] Address [address] [place] [address] Care Team Providers Care Continuous Pickling Line Pickler Helper Name Role Phone Winston Villatoro OD Unavailable [phone] Denise Woodson Ra, APRN EXCHANGE CONSULTANT Unavailable [phone] Denise Woodson Ra, APRN EXCHANGE CONSULTANT Primary Care Provid er Usha Simon APRN EXCHANGE CONSULTANT Unavailable [phone] Dangelo Salinas MD Unavailable Allergies Active Allergy [...] (FLONASE) 50 MCG/ACT nasal sprayIndications: Chronic rhinitis [place] 2 sprays into both nostrils daily 16 [...] Encounters Date Type Department Care Team Description 02/01/2024 Travel 01/31/2024 9:30 AM CDT Office Visit [address] [address] MerylJeevan cardenas MD George, Seena Susan, APRN EXCHANGE CONSULTANT Dural arteriovenous fistula 01/31/2024 PRE VISIT [facility] Neurosurgery [address] [address] Usha Simon APRN EXCHANGE CONSULTANT *-*INCOMING RECORDS*-* 01/30/2024 11:00 AM CDT Therapy Visit [address] [phone] Danya You PA Van Dyk, Sara, JAIMIE Activity of daily living alteration (Primary Dx); Cerebrovascular accident (CVA), unspecified mechanism (H); Alteration in instrumental activities of daily living (IADL) 01/30/2024 Travel 01/30/2024 MyC Medical Advice [facility] Neurology [address] [address] Stacey Kelley, GEMA 01/30/2024 Telephone [facility] Neurology [address] [phone] Stacey Kelley, RN 01/29/2024 9:30 AM CDT Therapy Visit [address] [address] Danya You PA Morgan, Lindsay M, VICE PRESIDENT QUALITY ASSURANCE Cerebrovascular accident (CVA), unspecified mechanism (H) 01/29/2024 MyC Medical Advice [address] [address] Danya Restrepo, VICE PRESIDENT QUALITY ASSURANCE 01/28/2024 1:15 PM CDT Therapy Visit [address] [address] Danya You, Delicia Higgins, PT Cerebrovascular accident (CVA), unspecified mechanism (H) 01/28/2024 Travel 01/27/2024 Travel 01/27/2024 Telephone [facility] Neurology [address] [place] [phone] None 01/27/2024 MyC Medical Advice [facility] Neurology [address] [place] [phone] Phoebe Del Cid 01/25/2024 Travel 01/23/2024 Telephone [facility] Neurology [address] [place] [phone] None Appointment (Referral-Stroke hospital follow up) 01/23/2024 Orders Only [facility] [address] [place] [address] [address] [place] [phone] Delisa Manuel MD Dural arteriovenous fistula (Primary Dx) 01/22/2024 2:38 PM CDT - 01/26/2024 12:31 PM CDT Hospital Encounter [facility] [address] [phone] Parminder Del Angel MD Cerebrovascular accident (CVA), unspecified mechanism (H) (Primary Dx); Fibromyalgia; Pain of right upper extremity; Generalized anxiety disorder; History of seizure; Mild recurrent major depression (H24) Discharge Disposition: Home or Self Care 01/21/2024 8:30 AM CDT Ancillary Procedure [facility] EEG [address] [place] [phone] Kev Ansari MD Choudhary, Kriti, MD 01/19/2024 11:16 PM CDT - 01/22/2024 2:19 PM CDT Hospital Encounter [facility] Med Surg [facility] [place] [phone] Luis Reynolds DO Choudhary, Kriti, MD Traxler, Matthew, MD Fibromyalgia (Primary Dx); Pain of right upper extremity; Nausea; Other constipation; Generalized anxiety disorder; History of stroke; Seizure-like activity (H); History of seizure; Cerebrovascular accident (CVA), unspecified mechanism (H); Dural arteriovenous fistula Discharge Disposition: Acute Rehab Facility 01/17/2024 1:09 PM CDT - 01/19/2024 10:07 PM CDT Hospital Encounter [address] [address] Parminder Del Angel MD Al [...] Description 02/03/2024 8:45 AM CDT Therapy Visit [facility] Rehabilitation Services [address] [phone] Denise Woodson Ra, GARAGE LABORER EXCHANGE CONSULTANT [address] [place], [place] [phone] Addis Rojas, PT [facility] [address] [place] [address] 02/04/2024 PRE VISIT [facility] Neurology [address] [phone] Raul Hoyos MD [address] [place] [address] *-*INCOMING RECORDS*-* 02/04/2024 11:00 AM CDT Virtual Visit [facility] Neurology [address] [address] Raul Hoyos MD [address] [place] [address] 4[address] 02/06/2024 8:30 AM CDT Office Visit [facility] [address] [place] [address] Denise Woodson Ra, GARAGE LABORER EXCHANGE CONSULTANT [address] [place], [place] [phone] 02/07/2024 2:00 PM CDT Therapy Visit [facility] [address] [place] [phone] Danya You, PA 2450 [facility] [address] [place] [address] Charis [place], [facility] [address] [place], [place] [address] 02/14/2024 12:45 PM CDT Therapy Visit [address] [phone] Danya You, PA [address] [address] Isabel Beaulieu, OTR [address] [address] 02/14/2024 2:00 PM CDT Therapy Visit [address] [phone] Danya You, PA [facility] [address] [place], [place] [phone] Charis [place], JUAN [facility] [address] [place], [place] [address] 02/14/2024 2:45 PM CDT Therapy Visit [address] [address] Danya You, PA [address] [place] [address] Maria Eugenia Nguyen, PT [address] [place] [address] 02/17/2024 2:45 PM CDT Therapy Visit [facility] [address] [place] [address] Danya You PA [address] [address] Aliya Kim, VICE PRESIDENT QUALITY ASSURANCE [address] [facility], [address] [place] [address] 02/19/2024 3:00 PM CDT Therapy Visit [facility] [address] [place] [address] Danya You, PA 8550 [facility] [address] [address] Isabel Beaulieu, OTR [address] [address] 02/26/2024 2:15 PM CDT Therapy Visit [address] [address] Danya You, PA [address] [address] Charis [place], JUAN [facility] [address] [place] [address] 02/26/2024 3:00 PM CDT Therapy Visit [facility] [address] [place] [address] Danya You, AMAIRANI 2450 [facility] [address] [place] [address] Isabel Beaulieu, OTR [facility] 150 [place] [address] 02/27/2024 4:45 PM CDT Therapy Visit [facility] [address] [place] [address] Danya You, PA [address] [address] Vanessa Duggan, PT 03/05/2024 1:30 PM CDT Therapy Visit [address] [phone] Danya Yuo, AMAIRANI [address] [address] Isabel Beaulieu, OTR [facility]V [address] [address] 03/05/2024 3:15 PM CDT Therapy Visit [facility] [address] [place] [address] Danya You PA [address] 422834 Charis [place], [facility] [address] [place] [address] 03/05/2024 4:15 PM CDT Therapy Visit [facility] [address] [place] [phone] Danya You, AMAIRANI [address] [address] Delicia George, PT [address] [address] 03/11/2024 2:15 PM CDT Therapy Visit [address] [phone] Danya You, PA [address] [address] Isabel Beaulieu, OTJah [address] [address] 03/11/2024 3:00 PM CDT Therapy Visit [address] [phone] Danya You, PA [facility] [address] [address] Charis [place], VICE PRESIDENT QUALITY ASSURANCE [facility] [address] [place] [address] 03/11/2024 4:15 PM CDT Therapy Visit [address] [phone] Danya You, PA [facility] [address] [address] Delicia George, PT [address] [address] 03/17/2024 1:30 PM CDT Therapy Visit [address] [phone] Danya You, PA [address] [address] Isabel Beaulieu, OTR [address] [address] 03/17/2024 2:30 PM CDT Therapy Visit [address] [phone] Danya You, PA [facility] [address] [address] Charis [place], [facility] [address] [place] [address] 03/17/2024 4:00 PM CDT Therapy Visit [address] [phone] Danya You, PA [address] [place] [address] Delicia George, PT [facility] [address] [place] [address] 03/23/2024 10:30 AM CDT Office Visit [facility] [address] [place] [address] Denise Woodson Ra, GARAGE LABORER [facility] [address] [place] [address] 03/26/2024 1:30 PM CDT Therapy Visit [address] [phone] Danya You, PA [address] [place] [address] Isabel Beaulieu, OTR [address] [address] 03/26/2024 2:30 PM CDT Therapy Visit [address] [phone] Danya You, PA [address] [place] [address] Charis [place], [facility] [address] [place] [address] 03/26/2024 3:30 PM CDT Therapy Visit [address] [phone] Danya You, PA [address] [place] [address] Delicia George, PT [facility] [address] [place] [address] 04/02/2024 2:15 PM CDT Therapy Visit [address] [phone] Danya You, PA [address] [place] [address] Isabel Beaulieu, OTR [address] [address] 04/02/2024 3:15 PM CDT Therapy Visit [address] [phone] Danya You, PA [address] [place] [address] Charis [place], J[facility]AN [facility] [address] [place] [address] 04/02/2024 4:15 PM CDT Therapy Visit [address] [phone] Danya You, PA [address] [place] [address] Delicia George, PT [facility] [address] [place] [address] 04/09/2024 3:15 PM CDT Therapy Visit [address] [phone] Danya You, PA [address] [place] [address] Charis [place], J[facility]AN [facility] [address] [place] [address] 04/09/2024 4:15 PM CDT Therapy Visit [address] [place] [address] Danya You, PA [address] [place] [address] Delicia George, PT [facility] [address] [place] [address] 04/15/2024 9:30 AM CDT Therapy Visit [address] [phone] Danya You, PA [address] [place] [address] Danya Restrepo, VICE PRESIDENT QUALITY ASSURANCE 04/23/2024 2:30 PM CDT Therapy Visit [address] [phone] Danya You PA [address] [place] [address] Charis [place], [facility] [address] [place] [address] 06/23/2024 11:00 AM CDT Virtual Visit [facility] Mental Health & Addiction [facility] [address] [facility] [place] [address] Kristin Vázquez, [facility] [address] [place] [phone] 06/30/2024 2:00 PM CDT Virtual Visit [facility] Mental [facility] & Addiction [facility] [address] [facility] [place] [phone] Kristin Vázquez, [facility] [address] [facility] [place]ARC[place] [phone] Health Maintenance Due Date Last Done Comments [...] STAT 01/20/2024 6:53 PM CDT MRA BRAIN ([place]) W/O CONTRAST STAT 01/20/2024 6:50 [...] BILATERAL W/ FLO Routine 07/30/2023 2:38 PM MORTGAGE LOAN COUNSELOR LIPID REFLEX TO DIRECT LDL PANEL Routine 07/27/2021 8:57 AM MORTGAGE LOAN COUNSELOR CARDIOVASCULAR SCREENING; LDL GOAL LESS THAN 160 [...] of an antiphospholipid syndrome, recommend anticardiolipin and vttv-[id number] n (IgG and IgM) antibody tests. Mikayla Cooper MD, PhD [facility] 4 2:25 PM CDT [facility] Blood STRUCTURE OF RIGHT HAND / Unknown Venipuncture / Unknown 01/21/2024 1:20 PM CDT 01/21/2024 1:26 PM CDT Airam Jay MD LAB - BLOOD ORDERABL ES Performing Organization Address City/[facility]/ZIP Co de Phone Number [facility] [address] [facility], [address] [place] [address], [facility] * Factor 2 assay (01/21/2024 1:20 PM CDT) Factor 2 Assay 131 60 - 140 % 01/22/2024 9:53 AM CDT [facility] Comment: The Factor 2 activity level is not a screening test for the Prothrombin 19183 mutation. Blood STRUCTURE OF RIGHT HAND / Unknown Venipuncture / Unknown 01/21/2024 1:20 PM CDT 01/21/2024 1:26 PM CDT Airam Jay MD LAB - BLOOD ORDERABL ES Performing Organization Address City/[facility]/ZIP Co de Phone Number SPECIAL COAGULATION [facility] [address], [address] [place] [address], [facility] * EEG Video 2-12 HRS Um[facility] (01/21/2024 12:15 PM CDT) Narrative [facility] - 01/21/2024 3:06 PM CDT EEG Video 2-12 HRS [facility] Result VIDEO EEG DATE: 01/21/2024 VIDEO EEG LO VIDEO EEG DAY#: 1 VIDEO EEG SOURCE [...] LAB - BLOOD ORDERABL ES UR LABORATORY [facility] Acute Care Lab [address] [facility], [address] [place] [address], [facility] * Cardiolipin Fariba IgG and IgM (01/21/2024 5:51 AM CDT) Cardiolipin Fariba IgG Instrument Value <2.0 <10.0 GPL-U/mL 01/22/2024 12:03 PM CDT SPECIALTY CORE/PROT/END O Cardiolipin Antibody IgG Negative Negative 01/22/2024 12:03 PM CDT SPECIALTY CORE/PROT/END O Cardiolipin Farbia IgM Instrument Value <2.0 <10.0 MPL-U/mL 01/22/2024 12:03 PM CDT SPECIALTY CORE/PROT/END O Cardiolipin Antibody IgM Negative Negative 01/22/2024 12:03 PM CDT SPECIALTY CORE/PROT/END O Blood STRUCTURE OF RIGHT HAND / Unknown Venipuncture / Unknown 01/21/2024 5:51 AM CDT 01/21/2024 6:22 AM CDT Airam Jay MD LAB - BLOOD ORDERABL ES UM SPECIALTY CORE/PROT/ENDO Specialty Core/Prot/Endo [address], [address] [place] [address] * Basic metabolic panel (01/21/2024 5:51 AM [...] LAB - BLOOD ORDERABL ES UR LABORATORY [facility] Acute Care Lab [address] [facility], [address] [place] [address] * MRA Neck (Carotids) wo [...] LATHAM MD Airam Jay MD [facility] MRI ORDERABLES * MR Brain w/o & [...] LATHAM MD Airam Jay MD [facility] MRI ORDERABLES * MRA Brain ([place]) wo Contrast (01/20/2024 6:50 PM CDT) Anatomical Region Laterality Modality Head, SUBRAD MR NEURO, UMP MR NEURO, RAD MR Magnetic Resonance Impressions 01/20/2024 7:49 PM CDT IMPRESSION: No intracranial arterial aneurysm or stenosis. I have personally reviewed the examination and initial interpretation and I agree with the findings. 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 Outside CTA report for 01/09/2024 obtained through Care Everywhere. 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 Outside CTA report for 01/09/2024 obtained through Care Everywhere. TECHNIQUE: Using a 3D okpj-zr-pwfqpl image acquisition technique, MRA of the major [...] LATHAM MD Airam Jay MD [facility] MRI ORDERABLES * Troponin T, High Sensitivity [...] DO LAB - BLOOD ORDERABLES UR LABORATORY [facility] Acute Care Lab [address] [place] [address], Room [place] [id number] * Lactic acid whole blood (01/19/2024 11:55 PM CDT) Lactic Acid 1.1 0.7 - 2.0 mmol/L 01/20/2024 12:03 AM CDT UR LABORATORY Blood STRUCTURE OF RIGHT UPPER LIMB / Unknown Venipuncture / Unknown 01/19/2024 11:55 PM CDT 01/20/2024 12:01 AM CDT Len Camejo DO LAB - BLOOD ORDERABLES UR LABORATORY [facility] Acute Care Lab [address] [facility], [address] [place] [address] * Extra Purple Top Tube (01/19/2024 11:54 PM CDT) Hold Specimen [facility] 01/20/2024 1:04 AM CDT UR LABORATORY Blood BLOOD SPECIMEN / Unknown Venipuncture / Unknown 01/19/2024 11:54 PM CDT 01/20/2024 12:03 AM CDT Luis Reynolds DO LAB - BLOOD ORDERABL ES UR LABORATORY [facility] Lab [address] [facility], Room [place] [address] * CT Head w/o Contrast (01/19/2024 [...] the vertex were obtained without intravenous contrast. Roof Fixer (topogram) image(s) also obtained and reviewed. FINDINGS: [...] are clear. Grossly normal orbits. Procedure Note Nascene, Ana Ross, MD - 01/20/2024 EXAM: CT HEAD W/O CONTRAST 01/19/2024 10:34 PM HISTORY: concern for seizure in setting of left sigmoid dural AV fistula and recent ischemic stroke COMPARISON: None available TECHNIQUE: Using multidetector thin collimation helical acquisition technique, axial, coronal and sagittal CT images from the skull base to the vertex were obtained without intravenous contrast. Roof Fixer (topogram) image(s) also obtained and reviewed. FINDINGS: [...] Atrial Rate 84 BPM RADIOLOG Y RESULTS OK Interval 168 ms RADIOLOG Y RESULTS QRS Duration 82 ms RADIOLO GY RESULTS QT 374 ms RADIOLOGY RESULTS QTc 441 ms RADIOLOGY RESULTS P [place] 30 degrees RADIOLOGY RESULTS R AXIS 36 degrees RADIOLOGY RESULTS T [place] -13 degrees RADIOLOGY RESULTS Interpretation ECG Sinus rhythm with frequent Premature ventricular complexes Abnormal ECG No previous ECGs available Confirmed by MD MAN JANE ([id number]) on 01/20/2024 9:02:28 AM RADIOLOGY RESULTS 01/19/2024 10:3 3 PM CDT 01/20/2024 9:02 AM CDT Randy Kwon APRN EXCHANGE CONSULTANT ECG ORDERABLES RADIOLOGY RESULTS * INR (01/19/2024 9:33 PM CDT) INR 0.87 0.85 - 1.15 01/19/2024 10:17 PM CDT UR LABORATORY Blood BLOOD SPECIMEN / Unknown Venipuncture / Unknown 01/19/2024 9:33 PM CDT 01/19/2024 9:54 PM CDT Randy Kwon APRN [facility] LAB - BLOOD ORDER NASRIN UR LABORATORY [facility] Acute Care Lab [address] [facility], [address] [place] [address], [facility] * Prolactin (01/19/2024 9:33 PM CDT) Prolactin 22 5 - 23 ng/mL 01/19/2024 11:23 PM CDT UU LABORATORY Blood BLOOD SPECIMEN / Unknown Venipuncture / Unknown 01/19/2024 9:33 PM CDT 01/19/2024 9:54 PM CDT Randy Kwon APRN EXCHANGE CONSULTANT LAB - BLOOD ORDER NASRIN [facility] [employer] [facility] [employer] Core Lab [address] [facility], [address] [place] [address], [facility] * Partial thromboplastin time (01/19/2024 9:33 PM CDT) aPTT 25 22 - 38 Seconds 01/19/2024 10:18 PM CDT UR LABORATORY Blood BLOOD SPECIMEN / Unknown Venipuncture / Unknown 01/19/2024 9:33 PM CDT 01/19/2024 9:54 PM CDT Randy Kwon APRN [facility] LAB - BLOOD ORDER NASRIN UR LABORATORY [facility] Acute Care Lab [address] [facility], [address] [place] [address], [facility] * Fibrinogen activity (01/19/2024 9:33 PM CDT) Fibrinogen Activity 417 170 - 490 mg/dL 01/19/2024 10:18 PM CDT UR LABORATORY Blood BLOOD SPECIMEN / Unknown Venipuncture / Unknown 01/19/2024 9:33 PM CDT 01/19/2024 9:54 PM CDT Randy Kwon APRN, CNP LAB - BLOOD ORDER NASRIN UR LABORATORY [facility] Acute Care Lab [address] [place] [address], Room [address] [address] * Extra Green Top (Bovey Heparin) Tube (01/18/2024 5:40 AM CDT) Hold Specimen JIC 01/18/2024 7:32 AM CDT UR LABORATORY Blood STRUCTURE OF RIGHT UPPER LIMB / Unknown Venipuncture / Unknown 01/18/2024 5:40 AM CDT 01/18/2024 6:18 AM CDT Parminder Del Angel MD LAB - BLOOD ORDERABL ES UR LABORATORY [facility] Acute Care Lab [address] [place] [address], Room [address] [address], [facility] * Platelet count - Routine (01/18/2024 5:40 AM CDT) Platelet Count 217 150 - 450 10e3/uL 01/18/2024 6:15 AM CDT UR LABORATORY Blood STRUCTURE OF RIGHT UPPER LIMB / Unknown Venipuncture / Unknown 01/18/2024 5:40 AM CDT 01/18/2024 6:13 AM CDT Parminder Del Angel MD LAB - BLOOD ORDERABL ES UR LABORATORY [facility] Acute Care Lab [address] [place] [address], [address] [address], [facility] * Lab Result - HIM Scan (01/15/2024 12:00 AM CDT) 01/15/2024 Provider Outside NON-BEAKER LAB TE STING * MRI Imaging - HIM Scan (01/13/2024 12:00 AM CDT) Anatomical Region Laterality Modality Other 01/13/2024 Provider Outside IMG MRI ORDERABLES * US Imaging - HIM Scan (01/12/2024 12:00 AM CDT) Anatomical Region Laterality Modality Other 01/12/2024 Provider Outside [facility] US ORDERABLES * CT Imaging - HIM Scan (01/07/2024 12:00 AM CDT) Only the most recent of2 resultswithin the time period is included. Anatomical Region Laterality Modality Computed Tomogra phy 01/07/[address] ORDERABLES * CT Vascular - HIM Scan (01/04/2024 12:00 AM CDT) Only the most recent of2 resultswithin the time period is included. Anatomical Region Laterality Modality Computed Tomogra phy 01/04/[address] ORDERABLES * (ABNORMAL) Lipid panel reflex to direct LDL Fasting (07/27/2021 8:57 AM MORTGAGE LOAN COUNSELOR) Cholesterol 202(H) <200 mg/dL 07/28/2021 10:12 AM MORTGAGE LOAN COUNSELOR [facility] Triglycerides 91 <150 mg/dL 07/28/2021 10:12 AM MORTGAGE LOAN COUNSELOR [facility] Direct Measure HDL 56 >=50 mg/dL 07/28/2021 10:12 AM MORTGAGE LOAN COUNSELOR [facility] LDL Cholesterol Calculated 128(H) <=100 mg/dL 07/28/2021 10:12 AM MORTGAGE LOAN COUNSELOR [facility] Non HDL Cholesterol 146(H) <130 mg/dL 07/28/2021 10:12 AM MORTGAGE LOAN COUNSELOR [facility] Patient Fasting > 8hrs? Yes 07/28/2021 10:12 AM MORTGAGE LOAN COUNSELOR [facility] Blood STRUCTURE OF RIGHT UPPER LIMB / Unknown Venipuncture / Unknown 07/27/2021 8:57 AM MORTGAGE LOAN COUNSELOR 07/27/2021 8:57 AM MORTGAGE LOAN COUNSELOR Narrative [facility] - 07/28/2021 10:12 AM MORTGAGE LOAN COUNSELOR Cholesterol Desirable: ??<200 mg/dL Triglycerides Normal: ??Less [...] equal to 220 mg/dL Denise Woodson APRN EXCHANGE CONSULTANT LAB - BLOOD ORDERABLES [facility] [address] Lab (no room number, 1st floor of clinic) [place] [address], [facility] [phone] from Last 3 Months or Most Recently Relevant to Health Maintenance Advance Directives For more information, please contact: [phone] * Full Code (Latest Code Status on [...] ninfa nt/ legal decision maker Care Teams Continuous Pickling Line Pickler Helper Relationship Specialty Start Date End Date Winston Villatoro OD [facility] [place] [address] [place] [address] PCP - Ophthalmology Ophthalmology 02/11/13 Denise Woodson Ra, APRN EXCHANGE CONSULTANT [address] [place] [address] PCP - General Family Practice 09/21/20 Denise Woodson Ra, APRN EXCHANGE CONSULTANT [address] [place] [address] Assigned PCP 07/17/20 Usha Simon APRN EXCHANGE CONSULTANT [address] [address] [place] [address] [address] Nurse Practitioner Neurological Surgery 01/24/24 Dangelo Salinas MD [address] [place] [address] Neurology 01/27/24
--- OUTSIDE RECORDS SUMMARY | 2024-02-02 22:31 | XMS_ITS | Referral Summary ---
Author Name Unknown Organization [place] Address [address] [place] [address] Care Team Providers Care Company Pilot Name Role Phone Winston Villatoro OD Unavailable [phone] Denise Woodson Ra, APRN SPIRITUAL CARE COORDINATOR Unavailable + [phone] Denise Woodson Ra, APRN SPIRITUAL CARE COORDINATOR Primary Care Provid er Usha Simon APRN SPIRITUAL CARE COORDINATOR Unavailable + [phone] Dangelo Salinas MD Unavailable Encounters Date Type Department Care Team Description 02/01/2024 Travel 01/31/[address] [facility] Neurosurgery [address] [phone] Usha Simon APRN CNP *-*INCOMING RECORDS*-* 01/31/2024 9:30 AM CDT Office Visit [facility] Neurosurgery [address] [phone] Jeevan Sheth MD George, Seena Susan, APRN CNP Dural arteriovenous fistula 01/30/2024 Travel 01/30/[address] [facility] Neurology [address] [phone] Stacey Kelley, RN 01/30/[address] [facility] Neurology [address] [phone] Stacey Kelley RN 01/30/2024 11:00 AM CDT Therapy Visit [address] [address] Danya You PA Van Dyk, Sara, OTR Activity of daily living alteration (Primary Dx); Cerebrovascular accident (CVA), unspecified mechanism (H); Alteration in instrumental activities of daily living (IADL) 01/29/2024 MyC Medical Advice [address] [address] Danya Restrepo, CHOREOGRAPHY DIRECTOR 01/29/2024 9:30 AM CDT Therapy Visit [address] [address] Danya You PA Morgan, Lindsay M, CHOREOGRAPHY DIRECTOR Cerebrovascular accident (CVA), unspecified mechanism (H) 01/28/2024 Travel 01/28/2024 1:15 PM CDT Therapy Visit [address] [address] Danya You PA Hoyt, Kelly, PT Cerebrovascular accident (CVA), unspecified mechanism (H) 01/27/2024 Travel 01/27/[address] [facility] Neurology Clinic [address] [phone] None 01/27/[address] [facility] Neurology Clinic [address] [phone] Phoebe Del Cid 01/22/2024 2:38 PM CDT - 01/26/2024 12:31 PM CDT Hospital Encounter [facility] [address] [phone] Parminder Del Angel MD Cerebrovascular accident (CVA), unspecified mechanism (H) (Primary Dx); Fibromyalgia; Pain of right upper extremity; Generalized anxiety disorder; History of seizure; Mild recurrent major depression (H24) Discharge Disposition: Home or Self Care 01/25/2024 Travel 01/23/[address] [facility] Neurology Clinic [place] [address] [facility] [address] 3rd [place] [phone] None Appointment (Referral-Stroke hospital follow up) 01/23/2024 Orders Only [facility] [address] [place] [address] Delisa Manuel MD Dural arteriovenous fistula (Primary Dx) 01/19/2024 11:16 PM CDT - 01/22/2024 2:19 PM CDT Hospital Encounter [facility] Med Surg [address] [place] [phone] Luis Reynolds DO Choudhary, Kriti, MD Traxler, Matthew, MD Fibromyalgia (Primary Dx); Pain of right upper extremity; Nausea; Other constipation; Generalized anxiety disorder; History of stroke; Seizure-like activity (H); History of seizure; Cerebrovascular accident (CVA), unspecified mechanism (H); Dural arteriovenous fistula Discharge Disposition: Acute Rehab Facility 01/21/2024 8:30 AM CDT Ancillary Procedure [facility] [address] [place] [phone] Kev Ansari MD Choudhary, Kriti, MD 01/17/2024 1:09 PM CDT - 01/19/2024 10:07 PM CDT Hospital Encounter [facility] [address] [phone] Parminder Del Angel MD Al Lawati, Zainab, [...] needed for muscle spasms 20 tablet 7 024 Discontinued(Me d Rec(No AVS / No eCancel)) Chelated Magnesium 100 MG TABS Take 100 mg by mouth At Bedtime 024 Discontinued(Me d Rec(No AVS / No eCancel)) fluticasone (FLONASE) 50 MCG/ACT nasal sprayIndications: Chronic rhinitis [place] 2 sprays into both nostrils daily 16 [...] daily as needed for moderate pain 4 024 Discontinued(St op at Discharge) hydrOXYzine HCl (ATARAX) 50 MG tabletIndications :Generalized anxiety disorder Take 1 tablet (50 mg) by mouth nightly as needed for anxiety 024 Discontinued oxyCODONE (ROXICODONE) 5 MG tabletIndications :Fibromyalgia,Tony n of right upper extremity Take 1 tablet (5 mg) by mouth every 6 hours as needed for severe pain (If pain not controlled with other pain modalities) 024 Discontinued(St op at Discharge) ondansetron (ZOFRAN [...] Description 02/03/2024 8:45 AM CDT Therapy Visit [address] [phone] Denise Woodson Ra, [employer] INSPECTOR SPIRITUAL CARE COORDINATOR [address] [place] [address] Addis Rojas, PT [facility] [address] [facility] [place], [place] [id number] 02/04/[address] [facility] Neurology [address] [phone] Raul Hoyos MD [address] [place] [address] *-*INCOMING RECORDS*-* 02/04/2024 11:00 AM CDT Virtual Visit [facility] Neurology [address] [phone] Raul Hoyos MD [address] [place] [address] 02/06/2024 8:30 AM CDT Office Visit [facility] [address] [place] [phone] Denise Woodson Ra, [employer] INSPECTOR SPIRITUAL CARE COORDINATOR [address] [place] [address] 02/07/2024 2:00 PM CDT Therapy Visit [address] [phone] Danya You PA [address] [place] [address] Charis Chacon, [facility] [address] [place] [address] 02/14/2024 12:45 PM CDT Therapy Visit [facility] [address] [place] [phone] Danya You, AMAIRANI [address] [place] [address] Isabel Beaulieu OTR [facility] [address] [place] [address] 02/14/2024 2:00 PM CDT [facility] [address] [place] [phone] Danya You, PA [address] [place] [address] Charis Chacon, J[facility]AN [facility] [address] [place] [address] 02/14/2024 2:45 PM CDT Therapy Visit [facility] [address] [place] [phone] Danya You, PA [address] [place] [address] Maria Eugenia Nguyen, PT [address] [place] [address] 02/17/2024 2:45 PM CDT Therapy Visit [facility] [address] [place] [phone] Danya You PA [address] [place], [place] [address] Aliya Kim, CHOREOGRAPHY DIRECTOR [address] [facility], [address] [place], [place] [address] 02/19/2024 3:00 PM CDT Therapy Visit [facility] [address] [place] [phone] Danya You, AMAIRANI [address] [place] [address] Isabel Beaulieu OTR [facility] [address] [place] [address] 02/26/2024 2:15 PM CDT Therapy Visit [facility] [address] [place] [phone] Danya You, PA [address] [facility] [address] [place] [address] Charis Chacon, [facility] [address] [place] [address] 02/26/2024 3:00 PM CDT Therapy Visit [facility] [address] [place] [phone] Danya You, AMAIRANI [address] [place] [address] Isabel Beaulieu OTR [facility] [address] [place] [address] 02/27/2024 4:45 PM CDT Therapy Visit [facility] [address] [place] [address] Danya You PA [address] [place] [address] Vanessa Duggan, PT 03/05/2024 1:30 PM CDT Therapy Visit [facility] [address] [place] [phone] Danya You, AMAIRANI [address] [address] Isabel Beaulieu OTR [facility] [address] [place] [address] 03/05/2024 3:15 PM CDT Therapy Visit [address] [phone] Danya You, AMAIRANI [facility] [address] [address] Charis Chacon, [facility] [address] [place] [address] 03/05/2024 4:15 PM CDT Therapy Visit [address] [phone] Danya You, AMAIRANI [address] [address] Delicia George, PT [facility] [address] [address] 03/11/2024 2:15 PM CDT Therapy Visit [address] [phone] Danya You PA [address] [place] [address] Isabel Beaulieu, OTR [address] [address] 03/11/2024 3:00 PM CDT Therapy Visit [address] [phone] Danya You, AMAIRANI [address] [place] [address] Charis Chacon, [facility] [address] [place] [address] 03/11/2024 4:15 PM CDT Therapy Visit [address] [phone] Danya You, PA [address] [place] [address] Delicia George, PT [facility] [address] [place] [address] 03/17/2024 1:30 PM CDT Therapy Visit [address] [phone] Danya You PA [address] [place] [address] Isabel Beaulieu, OTR [address] [address] 03/17/2024 2:30 PM CDT Therapy Visit [address] [phone] Danya You, PA [address] [address] Charis Chacon, [facility] [address] [place] [address] 03/17/2024 4:00 PM CDT Therapy Visit [address] [phone] Danya You, PA [address] [address] Delicia George, PT [facility] [address] [address] 03/23/2024 10:30 AM CDT Office Visit [facility] [address] [place] [phone] Denise Woodson Ra, [employer] INSPECTOR [facility] [address] [place], [place] [phone] 03/26/2024 1:30 PM CDT Therapy Visit [address] [phone] Danya You, PA [address] 79[address] Isabel Beaulieu, OTR [facility] [address] [place] [address] 03/26/2024 2:30 PM CDT Therapy Visit [facility] [address] [place] [phone] Danya You, AMAIRANI [address] [address] Charis Chacon, [facility] [address] [place] [address] 03/26/2024 3:30 PM CDT Therapy Visit [address] [phone] Danya You, PA [address] [address] Delicia George, PT [facility] [address] [place] [address] 04/02/2024 2:15 PM CDT Therapy Visit [facility] [address] [place] [phone] Danya You, PA [address] [place] [address] Isabel Beaulieu, OTR [facility] [address] [place] [address] 04/02/2024 3:15 PM CDT Therapy Visit [facility] [address] [place] [phone] Danya You PA [address] [address] Charis Chacon SLP [facility] [address] [place] [address] 04/02/2024 4:15 PM CDT Therapy Visit [address] [phone] Danya You, PA [address] [address] Delicia George, PT [address] [address] 04/09/2024 3:15 PM CDT Therapy Visit [address] [phone] Danya You, AMAIRANI [address] [address] Charis Chacon, [facility] [address] [place] [address] 04/09/2024 4:15 PM CDT Therapy Visit [address] [phone] Dnaya You PA [address] [address] Delicia George, PT [address] [address] 04/15/2024 9:30 AM CDT Therapy Visit [facility] [address] [place] [phone] Danya You, PA [address] [place] [address] Danya Restrepo CHOREOGRAPHY DIRECTOR 04/23/2024 2:30 PM CDT Therapy Visit [facility] [address] [place] [phone] Danya You, PA [address] [place] [address] Charis Chacon [facility] [address] [place] [address] 06/23/2024 11:00 AM CDT Virtual Visit [facility] Mental Health & Addiction [facility] [address] [place] [phone] Kristin Vázquez, [facility] [address] [place] [phone] 06/30/2024 2:00 PM CDT Virtual Visit [facility] Mental Health & Addiction [facility] [address] [place] [address] Kristin Vázquez, [facility] [address] [place] [address] Procedures Procedure Name Priority Date/Time Associated Diagnosis [...] STAT 01/20/2024 6:53 PM CDT MRA BRAIN ([place]) W/O CONTRAST STAT 01/20/2024 6:50 [...] BILATERAL W/ FLO Routine 07/30/2023 2:38 PM SAFETY ANALYST LIPID REFLEX TO DIRECT LDL PANEL Routine 07/27/2021 8:57 AM SAFETY ANALYST CARDIOVASCULAR SCREENING; LDL GOAL LESS THAN [...] of an antiphospholipid syndrome, recommend anticardiolipin and rakj-7-kobjgjvluwg n (IgG and IgM) antibody tests. Mikayla Cooper MD, PhD [facility] 2:25 PM CDT [facility] Blood STRUCTURE OF RIGHT HAND / Unknown Venipuncture / Unknown 01/21/2024 1:20 PM CDT 01/21/2024 1:26 PM CDT Airam Jay MD LAB - BLOOD ORDERABL ES [facility] [address], [address] [place] [address] * Factor 2 assay (01/21/2024 1:20 PM CDT) Factor 2 Assay 131 60 - 140 % 01/22/2024 9:53 AM CDT [facility] Comment: The Factor 2 activity level is not a screening test for the Prothrombin 405[address] mutation. Blood STRUCTURE OF RIGHT HAND / Unknown Venipuncture / Unknown 01/21/2024 1:20 PM CDT 01/21/2024 1:26 PM CDT Airam Jay MD LAB - BLOOD ORDERABL ES [facility] [address] [facility], Room [address] [phone] * EEG Video 2-12 HRS [facility] (01/21/2024 12:15 PM CDT) Narrative [facility] - 01/21/2024 3:06 PM CDT EEG Video 2-12 HRS [facility] Result VIDEO EEG DATE: 01/21/2024 VIDEO EEG [id number] VIDEO EEG DAY#: 1 VIDEO EEG SOURCE [...] LAB - BLOOD ORDERABL ES UR LABORATORY [facility] Acute Care Lab [address] [facility], [address] [place] [address] * Cardiolipin Fariba IgG and IgM (01/21/2024 [...] UM SPECIALTY CORE/PROT/ENDO UM Specialty Core/Prot/Endo [address], Room [address] * Basic metabolic panel (01/21/2024 5:51 [...] LAB - BLOOD ORDERABL ES UR LABORATORY [facility] Acute Care Lab [address] [facility], [address] [place] [address], [facility] * MRA Neck (Carotids) wo [...] findings. ANA LATHAM MD Airam Jay MD [facility] MRI ORDERABLES * MR Brain w/o & [...] findings. ANA LATHAM MD Airam Jay MD [facility] MRI ORDERABLES * MRA Brain ([place]) wo Contrast (01/20/2024 6:50 PM CDT) Anatomical Region Laterality Modality Head, SUBRAD MR NEURO, UMP MR NEURO, RAD MR Magnetic Resonance Impressions 01/20/2024 7:49 PM CDT IMPRESSION: No intracranial arterial aneurysm or stenosis. I have personally reviewed the examination and initial interpretation and I agree with the findings. 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 Outside CTA report for 01/09/2024 obtained through Care Everywhere. 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 Outside CTA report for 01/09/2024 obtained through Care Everywhere. TECHNIQUE: Using a 3D oifq-kc-xchlzq image acquisition technique, MRA of the major [...] findings. ANA LATHAM MD Airam Jay MD [facility] MRI ORDERABLES * Troponin T, High Sensitivity (01/19/2024 11:55 PM CDT) [facility] Troponin T, High Sensitivity <6 <=14 ng/L [...] DO LAB - BLOOD ORDERABLES UR LABORATORY [facility] Acute Care Lab [address] [place] [address], Room [address] [phone] * Lactic acid whole blood (01/19/2024 11:55 PM CDT) Lactic Acid 1.1 0.7 - 2.0 mmol/L 01/20/2024 12:03 AM CDT UR LABORATORY Blood STRUCTURE OF RIGHT UPPER LIMB / Unknown Venipuncture / Unknown 01/19/2024 11:55 PM CDT 01/20/2024 12:01 AM CDT Len Camejo DO LAB - BLOOD ORDERABLES Performing Organization Address City/[facility]/ZIP Co de Phone Number UR LABORATORY [facility] Care Lab [address] [place] [place] [address], Room [address] [address], [facility] * Extra Purple Top Tube (01/19/2024 11:54 PM CDT) Hold Specimen JIC 01/20/2024 1:04 AM CDT UR LABORATORY Blood BLOOD SPECIMEN / Unknown Venipuncture / Unknown 01/19/2024 11:54 PM CDT 01/20/2024 12:03 AM CDT Luis Reynolds DO LAB - BLOOD ORDERABL ES UR LABORATORY [facility] Care Lab [address] [place] [address], [address] [address], [facility] * CT Head w/o Contrast [...] the vertex were obtained without intravenous contrast. Supervisor Assembly (topogram) image(s) also obtained and reviewed. FINDINGS: [...] the vertex were obtained without intravenous contrast. Supervisor Assembly (topogram) image(s) also obtained and reviewed. FINDINGS: [...] findings. ANA LATHAM MD Randy Kwon APRN SPIRITUAL CARE COORDINATOR IMG CT ORDERABLES * EKG 12-lead, complete (01/19/2024 10:33 PM CDT) Systolic Blood Pressure mmHg RADIOLOGY RESULTS Diastolic Blood Pressure mmHg RADIOLOGY RESULTS Ventricular Rate 84 BPM RAD IOLOGY RESULTS Atrial Rate 84 BPM RADIOLOG Y RESULTS TN Interval 168 ms RADIOLOG Y RESULTS QRS Duration 82 ms RADIOLO GY RESULTS QT 374 ms RADIOLOGY RESULTS QTc 441 ms RADIOLOGY RESULTS P Mark 30 degrees RADIOLOGY RESULTS R AXIS 36 degrees RADIOLOGY RESULTS T Mark -13 degrees RADIOLOGY RESULTS Interpretation ECG Sinus rhythm with frequent Premature ventricular complexes Abnormal ECG No previous ECGs available Confirmed by MD MAGDA, BART ([id number]) on 01/20/2024 9:02:28 AM RADIOLOGY RESULTS 01/19/2024 10:3 3 PM CDT 01/20/2024 9:02 AM CDT Randy Kwon APRN SPIRITUAL CARE COORDINATOR ECG ORDERABLES RADIOLOGY RESULTS * INR (01/19/2024 9:33 PM CDT) INR 0.87 0.85 - 1.15 01/19/2024 10:17 PM CDT UR LABORATORY Blood BLOOD SPECIMEN / Unknown Venipuncture / Unknown 01/19/2024 9:33 PM CDT 01/19/2024 9:54 PM CDT Randy Kwon APRN SPIRITUAL CARE COORDINATOR LAB - BLOOD ORDER NASRIN UR LABORATORY [facility] Acute Care Lab [facility], [address] [place] [address], [facility] * Prolactin (01/19/2024 9:33 PM CDT) Prolactin 22 5 - 23 ng/mL 01/19/2024 11:23 PM CDT [facility] LAB[facility]ATORY Blood BLOOD SPECIMEN / Unknown Venipuncture / Unknown 01/19/2024 9:33 PM CDT 01/19/2024 9:54 PM CDT Randy Kwon APRN, CNP LAB - BLOOD ORDER NASRIN [facility] LABORATORY [facility] [address] [facility], [address] [place] [address] * Partial thromboplastin time (01/19/2024 9:33 PM CDT) aPTT 25 22 - 38 Seconds 01/19/2024 10:18 PM CDT UR LABORATORY Blood BLOOD SPECIMEN / Unknown Venipuncture / Unknown 01/19/2024 9:33 PM CDT 01/19/2024 9:54 PM CDT Randy Kwon APRN, CNP LAB - BLOOD ORDER NASRIN UR LABORATORY [facility] Acute Care Lab [facility], [address] [address], [facility] * Fibrinogen activity (01/19/2024 9:33 PM CDT) Fibrinogen Activity 417 170 - 490 mg/dL 01/19/2024 10:18 PM CDT UR LABORATORY Blood BLOOD SPECIMEN / Unknown Venipuncture / Unknown 01/19/2024 9:33 PM CDT 01/19/2024 9:54 PM CDT Randy Kwon APRN SPIRITUAL CARE COORDINATOR LAB - BLOOD ORDER NASRIN UR LABORATORY [facility] Acute Care Lab [facility], [address] [place] [address], [facility] * Extra Green Top ([place] Heparin) Tube (01/18/2024 5:40 AM CDT) Hold Specimen JIC 01/18/2024 7:32 AM CDT UR LABORATORY Blood STRUCTURE OF RIGHT UPPER LIMB / Unknown Venipuncture / Unknown 01/18/2024 5:40 AM CDT 01/18/2024 6:18 AM CDT Parminder Del Angel MD LAB - BLOOD ORDERABL ES Performing Organization Address City/[facility]/ZIP Co de Phone Number UR LABORATORY [facility] Lab [address] [place] [address], [address] [address] * Platelet count - Routine (01/18/2024 5:40 AM CDT) Platelet Count 217 150 - 450 10e3/uL 01/18/2024 6:15 AM CDT UR LABORATORY Blood STRUCTURE OF RIGHT UPPER LIMB / Unknown Venipuncture / Unknown 01/18/2024 5:40 AM CDT 01/18/2024 6:13 AM CDT Parminder Del Angel MD LAB - BLOOD ORDERABL ES Performing Organization Address City/[facility] Co de Phone Number UR LABORATORY [facility] Lab [address] [place] [address], [address] [phone] * Lab Result - HIM Scan (01/15/2024 [...] to direct LDL Fasting (07/27/2021 8:57 AM SAFETY ANALYST) Cholesterol 202(H) <200 mg/dL 07/28/2021 10:12 AM SAFETY ANALYST [facility] Triglycerides 91 <150 mg/dL 07/28/2021 10:12 AM SAFETY ANALYST [facility] Direct Measure HDL 56 >=50 mg/dL 07/28/2021 10:12 AM SAFETY ANALYST [facility] LDL Cholesterol Calculated 128(H) <=100 mg/dL 07/28/2021 10:12 AM SAFETY ANALYST [facility] Non HDL Cholesterol 146(H) <130 mg/dL 07/28/2021 10:12 AM SAFETY ANALYST [facility] Patient Fasting > 8hrs? Yes 07/28/2021 10:12 AM SAFETY ANALYST [facility] Blood STRUCTURE OF RIGHT UPPER LIMB / Unknown Venipuncture / Unknown 07/27/2021 8:57 AM SAFETY ANALYST 07/27/2021 8:57 AM SAFETY ANALYST Narrative [facility] - 07/28/2021 10:12 AM SAFETY ANALYST Cholesterol Desirable: ??<200 mg/dL Triglycerides Normal: [...] equal to 220 mg/dL Denise Woodson APRN SPIRITUAL CARE COORDINATOR LAB - BLOOD ORDERABLES [facility]X [facility] [address] Lab (no room number, 1st floor of clinic) [place] [address], [facility] [phone] from Last 3 Months or Most Recently Relevant to Health Maintenance Advance Directives For more information, please contact: [phone] * Full Code (Latest Code Status on [...] patie nt/ legal decision maker Care Teams Company Pilot Relationship Specialty Start Date End Date Winston Villatoro OD [facility] [place] [address] [facility] [address] [place] [address] PCP - Ophthalmology Ophthalmology 02/11/13 Denise Woodson Ra, APRN SPIRITUAL CARE COORDINATOR [address] [address] [address] PCP - General Family Practice 09/21/20 Denise Woodson Ra, APRN SPIRITUAL CARE COORDINATOR [address] [address] [address] Assigned PCP 11/1/20 Usha Simon APRN SPIRITUAL CARE COORDINATOR [address] [facility] [address] Nurse Practitioner Neurological Surgery 01/24/24 Dangelo Salinas MD [address] [place] [address] Neurology 01/27/24
--- OUTSIDE RECORDS SUMMARY | 2024-02-02 22:31 | XMS_ITS | Clinical Summary ---
Author Name Unknown Organization [employer] Address [place], [place] [address] Care Team Providers Care Academic Interventionist Name Role Phone Keira Irvin MD Primary [...] durable medical equipment (DME)Indications: Plantar fasciitis, bilateral [id number] Plantar Fasciitis, night splint, Large 1 Each [...] Type Department Care Team Description 01/21/2024 Telephone [facility] [place] [address] [place] [address] Fercho Valladares MD Referral 01/15/2024 11:00 AM CDT Ancillary Procedure [place] [facility] [place] [facility] [address] [place] [address] 01/15/2024 Office Visit [facility] [address] [place] [phone] Bette Mantilla MD Telehealth ([facility]) 01/15/2024 Travel 01/14/2024 Office Visit [facility] [address] [place] [phone] Bette Mantilla MD Telehealth ([facility]) 01/14/2024 Telephone [facility] [place] [address] [place] [address] Fercho Valladares MD Referral 01/14/[address] [facility] [address] [place] [phone] Roshni Molina MD Telehealth ([facility]) 01/13/2024 Telephone [facility] [address] [place] [address] Anastasia Walden NP Error-please disregard 01/13/2024 Telephone [facility] [address] [place] [address] Anastasia Walden NP Questions 01/10/2024 Orders Only [facility] [address] [place] [address] Timoteo Gutierrez MD <No scans attached> 01/10/2024 Telephone [facility] [address] [place] [address] Aby Saxena NP Follow Up 01/09/2024 1:20 PM CDT - 01/09/2024 3:30 PM CDT Hospital Encounter [facility] [address] [place] [address] Timoteo Gutierrez MD AVF (arteriovenous fistula) (HC) (Primary Dx); Tinnitus, left ear; Headache Discharge Disposition: Home Self Care 01/09/2024 Travel from Last 3 Months Immunizations Name Administration Dates Next Due COVID-19 vaccine ([employer] 30mcg/0.3mL) CORKY ROSARIO 07/07/2021 Hepatitis B, Unspecified [...] REFLEX MEASURED LDL Routine 08/03/2011 10:31 AM ACCESS REP Screening for other and unspecified cardiovascular conditions [...] PM CDT ECHOCARDIOGRAM CHRISTOPHER TY ?Accession#: ?? [id number] : ?1975 48 years Study Date: ?? 01/15/2024 11:27:48 AM Gender: F ? BP: ? 154/84 mmHg Height: 173.00 cm ? BSA: ?2.09 m? ? ? Weight: 95.00 kg ?Tech: ? MSR ?Referring MD: HANG BERGERON Site: ? [facility] Reading Location: Mobile STAT Patient Location: Inpatient. [...] 3.5 ml diluted Definity, lot #[id number], [facility]# [id number] was administered peripherally to enhance visualization of all left ventricular segments. . This study was interpreted by an [facility] accredited facility. CC: HIM (med records) [facility], Med/Surg - IP [facility]. ??Final ?? Procedure Note Dillan Garcia MD - 01/15/2024 ECHOCARDIOGRAM CHRISTOPHER TY : 1975 48 years Study Date: 01/15/2024 11:27:48 AM Gender: F BP: 154/84 mmHg Height: 173.00 cm BSA: 2.09 m? ? ? Weight: 95.00 kg Tech: JUANJO Referring MD: HANG BERGERON Site: [facility] Reading Location: Mobile STAT [...] 3.5 ml diluted Definity, lot #[id number], [facility]#[id number] was administered peripherally to enhance visualization of allleft ventricular segments. . This study was interpreted by an [facility] accredited facility. CC: HIM (med records) [facility], [facility]/Surg - IP [facility]. Final Hang Bergeron DO ECHO ORD * [...] 01/09/2024 1:12:05 PM (Electronically Signed) Anastasia Walden STATISTICAL MODELER CT * IR ANGIO CAROTID CEREBRAL BILATERAL [...] of the examination. Timoteo Gutierrez M.D. Neurointerventionalist [facility] [facility] Pager: Office/Appointments: Answering Service: [facility]: [email or web address] Narrative 01/09/2024 9:57 AM CDT PHYSICIAN: Timoteo Gutierrez DATE: 01/09/2024. PROCEDURE: CEREBRAL ANGIOGRAM Selective catheter placement, right internal carotid artery, with angiography of the intracranial carotid circulation (CPT 93496) Selective catheter placement, right external carotid artery, with angiography of the external carotid circulation (CPT +66519) Selective catheter placement, left internal carotid artery, with angiography of the intracranial carotid circulation (CPT 80024) Selective catheter placement, left external carotid artery, with angiography of the external carotid circulation (CPT +30148) Selective catheter placement, right vertebral artery, with angiography of the vertebral circulation (CPT 32304) Selective catheter placement, left vertebral artery, with angiography of the vertebral circulation (CPT 64250) Ultrasound guidance for vascular access: right radial artery access (CPT +72428) Monitored conscious sedation: 50min (CPT 66366, CPT +90945 x2) CLINICAL HISTORY: 48 year-old female with [...] right radial percutaneous arterial puncture and a 5-Yoruba sheath was placed. After infusion of a heparin, verapamil and nitroglycerin cocktail via the sheath, contrast was then injected via the sheath to assess the arterial anatomy in the right forearm. Subsequently using a 5-Yoruba angled tip catheter and glidewire combination, selective [...] The anterior communicating artery is ??opacified from [id number]. The capillary, venous, and venous sinus phases [...] ??The anterior communicating artery is opacified from [id number]. Right vertebral artery injection: There is normal [...] W REFLEX MEASURED LDL (08/03/2011 10:31 AM ACCESS REP) CHOLESTEROL,TOTAL 171 110 - 199 mg/dL [facility] TRIGLYCERIDES 67 <150 mg/dL [facility] HDL CHOLESTEROL 43 >40 mg/dL [facility] CHOL/HDL RATIO 3.98 <4.51 [facility] LDL CHOLESTEROL 115 <131 mg/dL [facility] PATIENT STATUS Fasting [facility] Blood specimen (specimen) BLOOD SPECIMEN / Unknown 08/03/2011 10:31 AM ACCESS REP 08/03/2011 10:23 AM ACCESS REP Jasvir Pickens MD CHEMISTRY [facility] [address] [place] [address] from Last 3 Months or Most Recently Relevant to Health Maintenance Advance Directives * Full Code (Latest Code Status on File) Date Activated Date Inactivated Comments 01/09/2024 7:44 AM 01/09/2024 6:26 PM Question Answer Comments Code Status Discussion: Reviewed Preferences Care Teams Academic Interventionist Relationship Specialty Start Date End Date Keira Irvin MD [address] [place] [address] PCP - General Family Practice 01/08/24
--- OUTSIDE RECORDS SUMMARY | 2024-02-02 22:32 | XMS_ITS | Encounter Summary ---
Author Name Unknown Organization [place] Address [address] [place] [address]. [place] [address] Care Team Providers Care Manager English Name Role Phone ShaunaWinston OD Unavailable [phone] Denise Woodson Ra, APRN CUSTOMER SERVICES COORDINATOR Unavailable + [phone] Denise Woodson Ra, APRN CUSTOMER SERVICES COORDINATOR Primary Care Provid er Usha Simon APRN CUSTOMER SERVICES COORDINATOR Unavailable + [phone] Dangelo Salinas MD Unavailable Encounter Details Date Type Department Care Team (Latest Contact Info) Description 02/01/2024 Travel Social History Tobacco Use Types Packs/Day [...] Description 02/03/2024 8:45 AM CDT Therapy Visit [facility] [address] [phone] Denise Woodson Ra, HAT AND CAP DRYING ROOM ATTENDANT CUSTOMER SERVICES COORDINATOR [address] [place] [address] Addis Rojas, PT [facility] [address] [place] [address] 02/04/2024 PRE VISIT [facility] [address] [phone] Raul Hoyos MD [address] [place] [phone] *-*INCOMING RECORDS*-* 02/04/2024 11:00 AM CDT Virtual Visit [facility] [address] [phone] Raul Hoyos MD [address] [place] [phone] 02/06/2024 8:30 AM CDT Office Visit [facility] [address] [place] [address] Denise Woodson Ra, HAT AND CAP DRYING ROOM ATTENDANT CUSTOMER SERVICES COORDINATOR [address] [place], [place] [phone] 02/07/2024 2:00 PM CDT Therapy Visit [facility] [address] [place] [phone] Danya You, PA 7310 [facility] [address] [place], [place] [address] Charis Chacon, CORPSMAN [facility] [address] [place] [address] 02/14/2024 12:45 PM CDT Therapy Visit [facility] [address] [place] [phone] Danya You PA [address] [place] [address] Isabel Beaulieu, OTR [facility] [address] [place] [address] 02/14/2024 2:00 PM CDT Therapy Visit [facility] [address] [place] [phone] Danya You PA [address] [address] [address] Charis Chacon, JUAN [facility] [address] [place] [address] 02/14/2024 2:45 PM CDT Therapy Visit [address] [phone] Danya You, PA [address] [address] [address] Maria Eugenia Nguyen, PT [address] [place] [address] 02/17/2024 2:45 PM CDT Therapy Visit [address] [phone] Danya You PA 9570 [facility] [address] [phone] Aliya Kim, CORPSMAN [address] [facility], [address] [address] 02/19/2024 3:00 PM CDT Therapy Visit [facility] [address] [place] [phone] Danya You, AMAIRANI 2450 [facility] [address] [place] [address] Isabel Beaulieu, OTR [facility] [address] [place] [address] 02/26/2024 2:15 PM CDT Therapy Visit [address] [phone] Danya You, AMAIRANI 24[address] [facility] [address] [address] Charis Chacon, JUAN [facility] [address] [place] [address] 02/26/2024 3:00 PM CDT Therapy Visit [address] [phone] Danya You, AMAIRANI 2450 [facility] [address] [place] [address] Isabel Beaulieu, OTR [facility] [address] [place] [address] 02/27/2024 4:45 PM CDT Therapy Visit [address] [phone] Danya You PA [address] [facility] [address] [place] [address] Vanessa Duggan, PT 03/05/2024 1:30 PM CDT Therapy Visit [facility] [address] [place] [phone] Danya You PA [address] [address] [address] Isabel Beaulieu, OTR [facility] [address] [place] [address] 03/05/2024 3:15 PM CDT Therapy Visit [facility] [address] [place] [phone] Danya You, AMAIRANI [facility] [place] [address] [address] Charis Chacon, [facility] [address] [place] [address] 03/05/2024 4:15 PM CDT Therapy Visit [facility] [address] [place] [phone] Danya You, AMAIRANI [facility] [address] [address] Delicia George, PT [facility] [address] [address] 03/11/2024 2:15 PM CDT Therapy Visit [facility] [address] [place] [phone] Danya You PA [facility] [address] [address] [address] Isabel Beaulieu, OTR [facility] [address] [facility] [place] [address] 03/11/2024 3:00 PM CDT Therapy [facility] [address] [place] [phone] Danya You, AMAIRANI [address] [place] [address] Charis Chacon, JUAN [facility] [address] [place] [address] 03/11/2024 4:15 PM CDT Therapy Visit [address] [phone] Danya You, AMAIRANI [address] [place] [address] Delicia George, PT [facility] [address] [place] [address] 03/17/2024 1:30 PM CDT Therapy Visit [address] [phone] Danya You, PA [address] [place] [address] Isabel Beaulieu, OTR [facility] [address] [place] [address] 03/17/2024 2:30 PM CDT Therapy Visit [facility] [address] [place] [phone] Danya You, PA [address] [place] [address] Charis Chacon, JUAN [facility] [address] [place] [address] 03/17/2024 4:00 PM CDT Therapy Visit [facility] [address] [place] [phone] Danya You, PA [address] [address] [place] [address] Delicia George, PT [address] [address] 03/23/2024 10:30 AM CDT Office Visit [facility] [address] [place] [phone] Denise Woodson Ra, HAT AND CAP DRYING ROOM ATTENDANT CUSTOMER SERVICES COORDINATOR [address] [place], [place] 6[address] 03/26/2024 1:30 PM CDT Therapy Visit [address] [phone] Danya You, PA [address] [place] [address] [place] [address] Isabel Beaulieu, JAIMIE [facility] [address] [place] [address] 03/26/2024 2:30 PM CDT Therapy Visit [facility] [address] [place] [phone] Danya You, PA [address] [address] [place] [address] Charis Chacon, JUAN [facility] [address] [place] [address] 03/26/2024 3:30 PM CDT Therapy Visit [facility] [address] [place] [phone] Danya You, PA [address] [place] [address] Delicia George, PT [address] [address] 04/02/2024 2:15 PM CDT Therapy Visit [facility] [address] [place] [phone] Danya You, PA [address] [place] [address] Isabel Beaulieu, OTR [facility] [address] [place] [address] 04/02/2024 3:15 PM CDT Therapy Visit [facility] [address] [place] [phone] Danya You, PA [address] [place] [address] Charis Chacon, JUAN [facility] [address] [place] [address] 04/02/2024 4:15 PM CDT Therapy Visit [facility] [address] [place] [address] Danya You, PA [address] [address] Delicia George, PT [address] [address] 04/09/2024 3:15 PM CDT Therapy Visit [address] [phone] Danya You, PA [address] [address] Charis Chacon, J[facility]AN [facility] [place] [address] 04/09/2024 4:15 PM CDT Therapy Visit [address] [phone] Danya You, PA 2450 [facility] [address] [address] Delicia George, PT [address] [address] 04/15/2024 9:30 AM CDT Therapy Visit [address] [phone] Danya You, PA [facility] [address] [address] Danya Restrepo SLP 04/23/2024 2:30 PM CDT [facility] [address] [place] [phone] Danya You, PA 6060 [facility] [address] [place] [address] Charis Chacon, J[facility]AN [facility] [address] [place] [address] 06/23/2024 11:00 AM CDT Virtual Visit [facility] [address] [place] [address] Kristin Vázquez, [facility] [address] [place] [address] 06/30/2024 2:00 PM CDT Virtual Visit [facility] [address] [place] [address] Kristin Vázquez, [facility] [address] [place] [phone] documented as of this encounter Visit Diagnoses Not on filedocumented in this encounter Additional Health Concerns Assessment Noted Time PHQ-9 Depression Total Score: 0 06/23/20 21 4:11 PM CDT documented as of this encounter Care Teams Manager English Relationship Specialty Start Date End Date Winston Villatoro, [facility] [place] [address] [place] [address] PCP - Ophthalmology Ophthalmology 02/11/13 Denise Woodson Ra, HAT AND CAP DRYING ROOM ATTENDANT CUSTOMER SERVICES COORDINATOR [address] [place] [address] PCP - General Family Practice 09/21/20 Denise Woodson Ra, APRN CUSTOMER SERVICES COORDINATOR [address] [facility] [place] [address] Assigned PCP 07/17/20 Usha Simon APRN CUSTOMER SERVICES COORDINATOR [address] [facility] [address] Nurse Practitioner Neurological Surgery 01/24/24 Dangelo Salinas MD [address] [place] [address] Neurology 01/27/24 documented as of this encounter
--- OUTSIDE RECORDS SUMMARY | 2024-02-02 22:32 | XMS_ITS | Encounter Summary ---
Author Name Unknown Organization [facility] Address [address] [place] [address] Care Team Providers Care Integrative Medicine Physician Name Role Phone Winston Villatoro OD Unavailable [phone] Denise Woodson Ra, APRN CIGARETTE PACKAGE EXAMINER Unavailable [phone] Denise Woodson Ra, APRN CIGARETTE PACKAGE EXAMINER Primary Care Provid er Usha Simon APRN CIGARETTE PACKAGE EXAMINER Unavailable [phone]- [phone] Dangelo Salinas MD Unavailable Reason for Visit * Rehab Therapy Integrated Services (Routine) - Authorized Specialty Diagnoses / Procedures Referred By Nila shah Referred To Contact Diagnoses Cerebrovascular accident (CVA), unspecified mechanism (H) [address] [address] Referral ID Status Reason Start Date Expiration Date V isits Requested Visits Authorized [id number] Authorized 09/16/2023 09/15/2024 365 365 Encounter Details Date Type Department Care Team (Late st Contact Info) Description 01/30/2024 11:00 AM CDT Therapy Visit [address] [phone] Danya You, PA [address] [place] [address] Aliya Reese, OTR [address]09 [place] [address] Activity of daily living alteration [...] walker, tub clamp 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 Feelsher memory is improving. Working on brain activity based tasks. Pt would also like to return to driving-this is a #1 goal for her so she doesn't have to rely on others for appointments. Pain assessment: Pain denied Objective Cognitive Status Examination Defer to GLOBAL COMPENSATION MANAGER examination/assessment. 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 Teacher: Pt has done laundry (2 loads)-decreased energy [...] Others:- Pt has 3 dogs (black lab, yemeni richardson, and small dog and 2 cats); [...] Pt presented for planned catheter angiogram at [facility] for left sided pulsatile tinnitus, following procedure [...] Reintegration, Self-Care/Home Management, Therapeutic Activity, Therapeutic Exercise Egg Processor Goals OT Goal 1 Goal Identifier: community mobility Goal Description: Pt participates in community mobility assessment items to screen for functional cognition and visuo-spatial reasoning/way finding including: cognitive screen (e.g. SBT, MoCA), SDMT,BiVaba Scan Course, Summit Point Making, Dynavision (all modes), foot tap measure, [...] additional referrals indicated; pt currently beingseen by GLOBAL COMPENSATION MANAGER and PT in addition to OT Education [...] Description 02/03/2024 8:45 AM CDT Therapy Visit [address] [address] Denise Woodson Ra, DECATOR OPERATOR CIGARETTE PACKAGE EXAMINER [address] [place] [address] Addis Rojas, PT [facility] [place] [address] [place], [place] [id number] 02/04/2024 PRE VISIT [facility] Neurology Clinic [address] [phone] Raul Hoyos MD [address] [place] [phone] *-*INCOMING RECORDS*-* 02/04/2024 11:00 AM CDT Virtual Visit [facility] Neurology [address] [address] Raul Hoyos MD [address] [place] [address] 02/06/2024 8:30 AM CDT Office Visit [facility] [address] [place] [phone] Denise Woodson Ra, DECATOR OPERATOR CIGARETTE PACKAGE EXAMINER [address] [place] [address] 02/07/2024 2:00 PM CDT Therapy Visit [facility] Rehabilitation Services [address] [phone] Danya You, AMAIRANI [facility] [address] [place] [address] Charis Chacon, GLOBAL COMPENSATION MANAGER [facility] [address] [place], [place] [address]607 02/14/2024 12:45 PM CDT Therapy Visit [address] [phone] Danya You, PA 2450 [facility] 213 [place] [address] Isabel Beaulieu, OTR [address] [address] 02/14/2024 2:00 PM CDT Therapy Visit [address] [phone] Danya You, PA 3360 [facility] 213 [place], [place] 299[address] Charis Chacon, JUAN [facility] [address] [place] [address] 02/14/2024 2:45 PM CDT Therapy Visit [address] [phone] Danya You, PA 2450 [facility] 213 [place], [place] 7[address]64 Maria Eugenia Nguyen, PT [address] [place] [address] 02/17/2024 2:45 PM CDT Therapy Visit [address] [phone] Danya You, PA 2450 [facility] 213 [place] [address] Aliya Kim, GLOBAL COMPENSATION MANAGER [address] [address] 02/19/2024 3:00 PM CDT Therapy Visit [facility] 150 [place] [address] Danya You PA [address] [place] [address] Isabel Beaulieu, OTR [facility] 150 [place] [address] 02/26/2024 2:15 PM CDT Therapy Visit [address] [phone] Danya You, AMAIRANI 2450 [facility] [address] [place] [address] Charis Chacon, [facility] [address] [place] [address] 02/26/2024 3:00 PM CDT Therapy Visit [address] [phone] Danya You, PA [address] [address] Isabel Beaulieu, OTR [facility] [address] [address] [place] [address] 02/27/2024 4:45 PM CDT Therapy Visit [facility] [address] [place] [address] Danya You, AMAIRANI 2450 [facility] JIE SOTO [address] [place] [address] Vanessa Duggan, PT 03/05/2024 1:30 PM CDT Therapy Visit [address] [phone] Danya You, AMAIRANI [address] [place] [address] 545[address] Isabel Beaulieu, OTR [address] [address] 03/05/2024 3:15 PM CDT Therapy Visit [address] [phone] Danya You, PA 7930 [facility] [address] 492514 Charis Chacon, GLOBAL COMPENSATION MANAGER [facility] [address] [place] [address] 03/05/2024 4:15 PM CDT Therapy Visit [address] [phone] Danya You, PA 77[address] [place] [address] 726624 Delicia George, PT [facility] 909 [place] [address] 03/11/2024 2:15 PM CDT Therapy Visit [address] [phone] Danya You, PA [address] 1765[address] Isabel Beaulieu, OTR [facility] [address] [place] [address] 03/11/2024 3:00 PM CDT Therapy Visit [facility] [address] [place] [phone] Danya You, PA [address] [address] Charis Chacon, [facility] [address] [place] [address] 03/11/2024 4:15 PM CDT Therapy Visit [address] [phone] Danya You, PA [address] [address] Delicia George, PT [facility] [address] [place] [address] 03/17/2024 1:30 PM CDT Therapy Visit [facility] [address] [place] [phone] Danya You, PA [address] [address] Isabel Beaulieu, OTR [facility] [place] [address] [place] [address] 03/17/2024 2:30 PM CDT [facility] [address] [place] [phone] Danya You, PA [address] [address] Charis Chacon SLP [facility] [address] [place] [address] 03/17/2024 4:00 PM CDT Therapy Visit [address] [phone] Danya You, PA [address] 172344 Delicia George, PT [facility] [address] [place] [address] 03/23/2024 10:30 AM CDT Office Visit [facility] [address] [place] [address] Denise Woodson Ra, DECATOR OPERATOR CIGARETTE PACKAGE EXAMINER [address] [place], [place] 98[address] 03/26/2024 1:30 PM CDT Therapy Visit [address] [phone] Danya You, AMAIRANI [address] [place] [address] Isabel Beaulieu OTR [address] [address] 03/26/2024 2:30 PM CDT Therapy Visit [address] [address] Danya You PA 2450 [address] [place] [address] Charis Chacon SLP [facility] [address] [place] [address] 03/26/2024 3:30 PM CDT Therapy Visit [facility] [address] [place] [address] Danya You, PA 2450 [facility] JIE SOTO [address] [place] [address] Delicia George, PT [facility] [address] [address] 04/02/2024 2:15 PM CDT Therapy Visit [facility] [address] [place] [phone] Danya You, PA 2450 [address] [place] [address] Isabel Beaulieu, OTR [facility] [address] [place] [address] 04/02/2024 3:15 PM CDT Therapy Visit [facility] [address] [place] [phone] Danya You, PA 2450 [facility] JIE SOTO [address] [place] [address] Charis Chacon, JUAN [facility] [address] [place] [address] 04/02/2024 4:15 PM CDT Therapy Visit [address] [phone] Danya You PA [address] [address] Delicia George, PT [address] [address] 04/09/2024 3:15 PM CDT Therapy Visit [address] [phone] Danya You, AMAIRANI [facility] [address] [address] Charis Chacon, [facility] [address] [place] [address] 04/09/2024 4:15 PM CDT Therapy Visit [address] [phone] Danya You, PA [facility] [address] [address] Delicia George, PT [address] [address] 04/15/2024 9:30 AM CDT Therapy Visit [address] [phone] Danya You, PA [address] [address] Danya Restrepo, GLOBAL COMPENSATION MANAGER 04/23/2024 2:30 PM CDT Therapy Visit [facility] Rehabilitation Services [facility] [address] [place] [address] Danya You, PA 2450 [facility] [address] [place] [address] Charis Chacon, JUAN [facility] [address] [place] [address] 06/23/2024 11:00 AM CDT Virtual Visit [facility] Mental Health & Addiction [facility] 6401 [place] [address] Kristin Vázquez, [facility] 6391 [place] [address] 06/30/2024 2:00 PM CDT Virtual Visit [facility] Mental Health & Addiction [facility] [address]01 [place] [address] Kristin Vázquez, [facility] [address] [place] [address] documented as of this encounter Visit Diagnoses Diagnosis Activity of daily living alteration- Primary Debility, unspecified Cerebrovascular accident (CVA), unspecified mechanism (H) Alteration in instrumental activities of daily living (IADL) documented in this encounter Additional Health Concerns Assessment Noted Time PHQ-9 Depression Total Score: 0 06/23/20 21 4:11 PM CDT documented as of this encounter Care Teams Integrative Medicine Physician Relationship Specialty Start Date End Date Winston Villatoro OD [facility] [place] [address] [facility] [address] [place] [address] PCP - Ophthalmology Ophthalmology 02/11/13 Denise Woodson Ra, APRN CIGARETTE PACKAGE EXAMINER [address] [place] [address] PCP - General Family Practice 09/21/20 Denise Woodson Ra, APRN CIGARETTE PACKAGE EXAMINER [address] [place] [address] Assigned PCP 07/17/20 Usha Simon APRN CIGARETTE PACKAGE EXAMINER 9 [facility], [place] [address] Nurse Practitioner Neurological Surgery 01/24/24 Dangelo Salinas MD [address] [place], [place] [id number] Neurology 01/27/24 documented as of this encounter
--- OUTSIDE RECORDS SUMMARY | 2024-02-02 22:32 | XMS_ITS | Encounter Summary ---
Author Name Unknown Organization [place] Address [address] [place] [address]. [place] [address] Care Team Providers Care Lift Manager Name Role Phone ShaunaWinston OD Unavailable [phone] Denise Woodson Ra, APRN ANIMAL SHELTER WORKER Unavailable + [phone] Denise Woodson Ra, APRN ANIMAL SHELTER WORKER Primary Care Provid er Usha Simon APRN ANIMAL SHELTER WORKER Unavailable + [phone] Dangelo Salinas MD Unavailable Encounter Details Date [...] 8:45 AM CDT Therapy Visit [facility] Rehabilitation Services [address] [address] Denise Woodson Ra, VP COMPLIANCE ANIMAL SHELTER WORKER [address] [place] [address] Addis Rojas, PT [facility] [address] [place] [address] 02/04/2024 PRE VISIT [facility] Neurology Clinic [address] [phone] Raul Hoyos MD [address] [place] [address] 097655 *-*INCOMING RECORDS*-* 02/04/2024 11:00 AM CDT Virtual Visit [facility] Neurology [address] [phone] Raul Hoyos MD [address] [place] [address] 02/06/2024 8:30 AM CDT Office Visit [facility] [address] [place] [address] Denise Woodson Ra, VP COMPLIANCE ANIMAL SHELTER WORKER [address] [place], [place] 2177068 02/07/2024 2:00 PM CDT Therapy Visit [facility] [address] [place] [address] Danya You, PA 6700 [facility] 213 [place], [place] 755084 Charis Chacon, PECAN MALLOW DIPPER [facility] [address] [place] [address] 02/14/2024 12:45 PM CDT Therapy Visit [facility] [address] [place] [address] Danya You PA [address] [place] [address] [place] [address] Isabel Beaulieu, OTR [facility] 150 [place] [address] 02/14/2024 2:00 PM CDT Therapy Visit [facility] [address] [place] [address] Danya You PA [address] [place] [address] [address] Charis Chacon, J[facility]AN [facility] [address] [place] [address] 02/14/2024 2:45 PM CDT Therapy Visit [address] [phone] Danya You, PA [address]50 [place] [address] [address] Maria Eugenia Nguyen, PT 2155 [place] [address] 02/17/2024 2:45 PM CDT Therapy Visit [address] [phone] Danya You PA 5740 [facility] [address] 389744 Aliya Kim, PECAN MALLOW DIPPER [address] [facility], [address] [address] 02/19/2024 3:00 PM CDT Therapy Visit [facility] [address] [place] [address] Danya You, AMAIRANI 2450 [facility] [address] [place] [address] Isabel Beaulieu, OTR [facility] 150 [place] [address] 02/26/2024 2:15 PM CDT Therapy Visit [address] [phone] Danya You, AMAIRANI 2450 [facility] [address] [address] Charis Chacon, JUAN [facility] [address] [place] [address] 02/26/2024 3:00 PM CDT Therapy Visit [address] [address] Danya You, AMAIRANI 2450 [facility] [address] [place] [address] Isabel Beaulieu, OTR [facility] 150 [place] [address] 02/27/2024 4:45 PM CDT Therapy Visit [address] [phone] Danya You PA 2450 [facility] [address] [place] [address] Vanessa Duggan, PT 03/05/2024 1:30 PM CDT Therapy Visit [facility] [address] [place] [address] Danya You PA [address] [place] [address] [address] Isabel Beaulieu, OTR [facility] 150 [place] [address] 03/05/2024 3:15 PM CDT Therapy Visit [facility] [address] [place] [address] Danya You, AMAIRANI [facility], [facility] [place] [address] [address] [address] Charis Chacon, [facility] [address] [place] [address] 03/05/2024 4:15 PM CDT Therapy Visit [facility] [address] [place] [phone] Danya You, AMAIRANI [facility], [facility] [address] [address] Delicia George, PT [facility] [address] [address] 03/11/2024 2:15 PM CDT Therapy Visit [facility] [address] [place] [phone] Danya You PA [facility], [facility] [place] [address] [address] Isabel Beaulieu, OTR [facility] 150 [place] [address] 03/11/2024 3:00 PM CDT Therapy Visit [facility] [address] [place] [address] Danya You, AMAIRANI [address] [place] [address] Charis Chacon, J[facility]AN [facility] [address] [place] [address] 03/11/2024 4:15 PM CDT Therapy Visit [address] [phone] Danya You, AMAIRANI 2450 [address] [place] [address] Delicia George, PT [facility] [address] [place] [address] 03/17/2024 1:30 PM CDT Therapy Visit [address] [phone] Danya You, PA [address]50 [address] [place] [address] Isabel Beaulieu, OTR [facility] 150 [place] [address] 03/17/2024 2:30 PM CDT Therapy Visit [facility] [address] [place] [address] Danya You, PA [address] [place] [address] Charis Chacon, [facility] [address] [place] [address] 03/17/2024 4:00 PM CDT Therapy Visit [facility] [address] [place] [phone] Danya You, PA [address] [place] [address] [place] [address] Delicia George, PT [address] [address] 03/23/2024 10:30 AM CDT Office Visit [facility] [address] [place] [phone] Denise Woodson Ra, VP COMPLIANCE ANIMAL SHELTER WORKER [address] [place], [place] 98427[address] 03/26/2024 1:30 PM CDT Therapy Visit [address] [phone] Danya You, PA [address]370 [place] [address] S[address] [place] [address] Isabel Beaulieu, JAIMIE [facility] 150 [place] [address] 03/26/2024 2:30 PM CDT Therapy Visit [facility] [address] [place] [phone] Danya You, PA [address] [place] [address] [place] [address] Charis Chacon, J[facility]AN [facility] [address] [place] [address] 03/26/2024 3:30 PM CDT Therapy Visit [facility] [address] [place] [phone] Danya You, PA [address] [place] [address] Delicia George, PT [address] [address] 04/02/2024 2:15 PM CDT Therapy Visit [facility] [address] [place] [phone] Danya You, PA [address] [place] [address] Isabel Beaulieu, OTR [facility] 150 [place] [address] 04/02/2024 3:15 PM CDT Therapy Visit [facility] [address] [place] [phone] Danya You, PA [address] [place] [address] Charis Chacon, JUAN [facility] [address] [place] [address] 04/02/2024 4:15 PM CDT Therapy Visit [facility] [address] [place] [address] Danya You, PA [address] [address] Delicia George, PT [address] [address] 04/09/2024 3:15 PM CDT Therapy Visit [address] [address] Danya You, PA [address] [address] Charis Chacon, [facility]AN [facility] [place] [address] 04/09/2024 4:15 PM CDT Therapy Visit [address] [address] Danya You, PA 2450 [facility] JULIE [address] [address] Delicia George, PT [address] [address] 04/15/2024 9:30 AM CDT Therapy Visit [address] [phone] Danya You, PA [facility], [facility] [address] [address] Danya Restrepo SLP 04/23/2024 2:30 PM CDT [facility] [address] [place] [address] Danya You, PA 7440 [facility] [address] [place] [address] Charis Chacon, [facility]AN [facility] [address] [place] [address] 06/23/2024 11:00 AM CDT Virtual Visit [facility] Mental Health & Addiction [facility] 6401 [place] [address] Kristin Vázquez, [facility] 6341 [place] [address] 06/30/2024 2:00 PM CDT Virtual Visit [facility] Mental Health & Addiction [facility] 6401 [place] [address] Kristin Vázquez, [facility] [address] [place] [phone] documented as of this encounter Visit Diagnoses Not on filedocumented in this encounter Additional Health Concerns Assessment Noted Time PHQ-9 Depression Total Score: 0 06/23/20 21 4:11 PM CDT documented as of this encounter Care Teams Lift Manager Relationship Specialty Start Date End Date Winston Villatoro, [facility] [address] [place] [address] PCP - Ophthalmology Ophthalmology 02/11/13 Denise Woodson Ra, VP COMPLIANCE ANIMAL SHELTER WORKER [address] [address] [address] PCP - General Family Practice 09/21/20 Denise Woodson Ra, APRN ANIMAL SHELTER WORKER [address] [facility] [place] [address] Assigned PCP 07/17/20 Usha Simon APRN ANIMAL SHELTER WORKER [address] [facility] [address] Nurse Practitioner Neurological Surgery 01/24/24 Dangelo Salinas MD [address] [place] [address] Neurology 01/27/24 documented as of this encounter
--- OUTSIDE RECORDS SUMMARY | 2024-02-02 22:32 | XMS_ITS | Encounter Summary ---
Author Name Unknown Organization [facility] Address [address] [place] [address]. [place] [address] Care Team Providers Care Classroom Assistant Name Role Phone Winston Villatoro OD Unavailable [phone] Denise Woodson Ra, APRN AMMONIA NITRATE OPERATOR Unavailable + [phone] Denise Woodson Ra, APRN AMMONIA NITRATE OPERATOR Primary Care Provid er Usha iSmon APRN AMMONIA NITRATE OPERATOR Unavailable + [phone] Dangelo Salinas MD Unavailable Reason for Visit * Reason Onset Date Comments *-*INCOMING RECORDS*-* 01/31/2024 Encounter Details Date Type Department Care Team ([facility] st Contact Info) Description 01/31/2024 PRE VISIT [facility] [address] [place] [address] Usha Simon APRN [address] [place] [address] *-*INCOMING RECORDS*-* Social History Tobacco Use Types [...] Records Requested January 24, 2024 4:21 PM [id number] Facility [facility] Outcome 4:24 pm Sent request for imaging to be pushed to PACS. -EDITH Toth on 01/29/2024 at 8:28 AM Imaging resolved into PACS. -EDITH Records Requested January 24, 2024 4:21 PM [id number] Facility [facility] 4:25 pm Sent request for [...] Care Everywhere 01/15/24, 01/14/24 Bette Mantilla MD @[facility] 01/14/24 Roshni Molina MD @[facility] DISCHARGE SUMMARY from hospital Internal 01/22/24-Present (as of 01/24/24) Parminder Del Angel MD @[facility] 01/19/24-01/22/24 Jeevan Sheth MD @[facility] EEG Internal [facility] 01/19/24 EEG Videl 2-12 Hrs Unmonitored MEDICATION LIST Internal IMAGING (FOR ALL VISITS) IR PACS [facility] 01/09/24 IR Angio Carotid Bilat MRI (HEAD, NECK, SPINE) PACS [facility] 01/20/24 MRA Neck (Caroitd) 01/20/24 MR Brain 01/20/24 MRA Brain (COW) [place] 09/28/22 MR Cervical Spine 09/28/[address] (HEAD, NECK, SPINE) PACS [facility] 01/19/24 CT Head [facility] 01/09/24 CTA Head & Neck Carotid [facility] 09/27/22 CTA Head Neck 09/25/22 CT Head documented in this encounter Plan of Treatment Upcoming Encounters Date Type Department Care Team (Late st Contact Info) Description 02/03/2024 8:45 AM CDT Therapy Visit [address] [address] Denise Woodson Ra, MARKETING AUTOMATION ANALYST [facility] [address] [place] [address] Addis Rojas, PT [facility] [address] [place], [place] [phone] 02/04/2024 PRE VISIT [facility] Neurology [address] [address] Raul Hoyos MD [address] [place] [id number] *-*INCOMING RECORDS*-* 02/04/2024 11:00 AM CDT Virtual Visit [facility] Neurology [address] [address] Raul Hoyos MD [address] [place] [address] [id number] 02/06/2024 8:30 AM CDT Office Visit [facility] [address] [place] [address] Denise Woodson Ra, MARKETING AUTOMATION ANALYST AMMONIA NITRATE OPERATOR [address] [facility] [place] [address] 02/07/2024 2:00 PM CDT Therapy Visit [facility] [address] [place] [address] Danya You PA [address] [place] [address] Charis Chacon SLP [facility] [address] [place], [place] [address] 02/14/2024 12:45 PM CDT Therapy Visit [address] [phone] Danya You, AMAIRANI Muller0 [address] [place] [address] Isabel Beaulieu, OTR [facility] 150 [place] [address] 02/14/2024 2:00 PM CDT Therapy Visit [facility] [address] [place] [address] Danya You, PA [address] [place] [address] Charis Chacon, JUAN FORMERLY NAMED [facility] [address] [place], [place] [address] 02/14/2024 2:45 PM CDT Therapy Visit [address] [phone] Danya You, AMAIRANI [address] [place] [address] [place] [address] Maria Eugenia Nguyen, PT 2[address] [place] [address] 02/17/2024 2:45 PM CDT Therapy Visit [facility] [address] [place] [address] Danya You, PA [address] [place] [address] Aliya Kim, ACTING PROFESSOR [address] [facility] 200 [place] [address] 02/19/2024 3:00 PM CDT Therapy Visit [address] [phone] Danya You, PA [address] [place] [address] Isabel Beaulieu, OTJah [address] [address] 02/26/2024 2:15 PM CDT Therapy Visit [address] [phone] Danya You, PA [address] [place] [address] Charis Chacon, JUAN FORMERLY NAMED [facility] [address] [place] [address] 02/26/2024 3:00 PM CDT Therapy Visit [address] [phone] Danya You, AMAIRANI [address] [place] [address] Isabel Beaulieu, OTR [facility] 150 [facility] [place] [place] [address] 02/27/2024 4:45 PM CDT Therapy Visit [facility] [address] [place] [address] Danya You, PA [address] [place], [place] 8[address] Vanessa Duggan, PT 03/05/2024 1:30 PM CDT Therapy Visit [facility] [address] [place] [address] Danya You, PA [address] [place] [address] Isabel Beaulieu, [facility]TR [facility] 150 [place] [address] 03/05/2024 3:15 PM CDT Therapy Visit [facility] 150 [place] [address] Danya You, PA [address] [place] [address] Charis Chacon, JUAN FORMERLY NAMED [facility] [address] [place] [address] 03/05/2024 4:15 PM CDT Therapy Visit [facility] [address] [place] [address] Danya You PA [address] [place] [address] Delicia George, PT [facility] [address] [place] [address] 03/11/2024 2:15 PM CDT Therapy Visit [address] [address] Danya You, PA [address] [place] [address] Isabel Beaulieu, OTJah [address] [address] 03/11/2024 3:00 PM CDT Therapy Visit [address] [address] Danya You, PA 2450 [facility] [address] [address] Charis Chacon, JUAN FORMERLY NAMED [facility] [address] [place] [address] 03/11/2024 4:15 PM CDT Therapy Visit [address] [phone] Danya You, PA [address] [place] [address] Delicia George, PT [facility] [address] [place] [address] 03/17/2024 1:30 PM CDT Therapy Visit [address] [phone] Danya You, AMAIRANI [address] [address] Isabel Beaulieu, OTR [address] [address] 03/17/2024 2:30 PM CDT Therapy Visit [address] [phone] Danya You, PA [address] [place] [address] Charis Chacon, JUAN [facility] [address] [place] [address] 03/17/2024 4:00 PM CDT Therapy Visit [address] [phone] Danya You, PA [address] [place] [address] Delicia George, PT [facility] [address] [place] [address] 03/23/2024 10:30 AM CDT Office Visit [facility] [address] [place] [phone] Denise Woodson Ra, MARKETING AUTOMATION ANALYST AMMONIA NITRATE OPERATOR [address] [place], [place] 56[address] 03/26/2024 1:30 PM CDT Therapy Visit [address] [phone] Danya You, AMAIRANI [address] [facility] [facility] [address] [address] Isabel Beaulieu, JAIMIE SHEPPARD [address] [address] 03/26/2024 2:30 PM CDT Therapy Visit [address] [phone] Danya You, AMAIRANI [facility] [address] [address] Charis Chacon, JUAN FORMERLY NAMED [facility] [address] [place] [address] 03/26/2024 3:30 PM CDT Therapy Visit [address] [phone] Danya You, PA [address] [place] [address] Delicia George, PT [facility] [address] [place] [address] 04/02/2024 2:15 PM CDT Therapy Visit [address] [phone] Danya You PA [address] [place], [place] [address] [address] [address] Isabel Beaulieu, OTR [facility] 150 [place] [address] 04/02/2024 3:15 PM CDT Therapy Visit [facility] 150 [place] [address] Danya You, PA [facility] [address] [address] Charis Chacon, JUAN [facility] [address] [place] [address] 04/02/2024 4:15 PM CDT Therapy Visit [address] [phone] Danya You, PA [address] [address] Delicia George, PT [facility] [place] [address] [place] [address] 04/09/2024 3:15 PM CDT Therapy Visit [address] [phone] Danya You, PA 2450 [facility] [address] [place] [address] Charis Chacon, JUAN [facility] [address] [place], [place] 6[address] 04/09/2024 4:15 PM CDT Therapy Visit [address] [phone] Danya You, PA [address] [place] [address] Delicia George, PT [address] [address] 04/15/2024 9:30 AM CDT Therapy Visit [address] [address] Danya You PA [facility] [address] [place] [address] Danya Restrepo, ACTING PROFESSOR 04/23/2024 2:30 PM CDT Therapy Visit [address] [phone] Danya You, PA [address] [place] [address] [address] Charis Chacon, JUAN FORMERLY NAMED [facility] [address] [place] [address] 06/23/2024 11:00 AM CDT Virtual Visit [facility] & Addiction [address] [address] Kristin Vázquez, [facility] 1641 [place] [address] 06/30/2024 2:00 PM CDT Virtual Visit [facility] Mental [facility] 6401 [place] [address] Kristin Vázquez, [facility] 3031 [place] [address] documented as of this encounter Visit Diagnoses Not on filedocumented in this encounter Additional Health Concerns Assessment Noted Time PHQ-9 Depression Total Score: 0 06/23/20 21 4:11 PM CDT documented as of this encounter Care Teams Classroom Assistant Relationship Specialty Start Date End Date Winston Villatoro OD [facility] [place] [address] [place] [address] PCP - Ophthalmology Ophthalmology 02/11/13 Denise Woodson Ra, APRN AMMONIA NITRATE OPERATOR [address] [place] [address] PCP - General Family Practice 09/21/20 Denise Woodson Ra, APRN AMMONIA NITRATE OPERATOR [address] [place] [address] Assigned PCP 07/17/20 Usha Simon APRN AMMONIA NITRATE OPERATOR 9 [facility]2121[place], [place] [address] Nurse Practitioner Neurological Surgery 01/24/24 Dangelo Salinas MD [address] [place] [address] Neurology 01/27/24 documented as of this encounter
--- OUTSIDE RECORDS SUMMARY | 2024-02-02 22:32 | XMS_ITS | Encounter Summary ---
Author Name Unknown Organization [facility] Address [address] [place] [address] Care Team Providers Care Local Government Legislator Name Role Phone Winston Villatoro OD Unavailable [phone] Denise Woodson Ra, APRN BOOKKEEPING MACHINE MECHANIC Unavailable + [phone] Denise Woodson Ra, APRN BOOKKEEPING MACHINE MECHANIC Primary Care Provid er Usha Simon APRN BOOKKEEPING MACHINE MECHANIC Unavailable + [phone] Dangelo Salinas MD Unavailable Encounter Details Date Type Department Care Team (Late st Contact Info) Description 01/30/[address] [facility] [address] [address] Stacey Kelley, RN Social [...] 02/03/2024 8:45 AM CDT Therapy Visit [facility] Rehabilitation Services [address] [address] Denise Woodson Ra, HEMATOLOGY SUPERVISOR BOOKKEEPING MACHINE MECHANIC [address] [place] [address] Addis Rojas, PT [facility] [address] [place] [address] 02/04/[address] [facility] [address] [phone] Raul Hoyos MD [address] [place] [address] [id number] *-*INCOMING RECORDS*-* 02/04/2024 11:00 AM CDT Virtual Visit [facility] Neurology [address] [address] Raul Hoyos MD [address] [place] [address] 4525[address] 02/06/2024 8:30 AM CDT Office Visit [facility] [address] [place] [address] Denise Woodson Ra, HEMATOLOGY SUPERVISOR BOOKKEEPING MACHINE MECHANIC [address] [place] [address] 02/07/2024 2:00 PM CDT Therapy Visit [facility] [address] [phone] Danya You, PA 2450 [facility] 213 [place], [place] 76[address] Charis Chacon, MARKETING DEVELOPMENT MANAGER [facility] [address] [place] [address] 02/14/2024 12:45 PM CDT Therapy Visit [address] [address] Danya You, PA [address] [place] [address] Isabel Beaulieu, OTR [address] [address] 02/14/2024 2:00 PM CDT Therapy Visit [address] [phone] Danya You PA [address] [address] Charis Chacon, JUAN [facility] [address] [place] [address] 02/14/2024 2:45 PM CDT Therapy Visit [address] [address] Danya You, PA [address] [address] Maria Eugenia Nguyen, PT 2155 [place] [address] 02/17/2024 2:45 PM CDT Therapy Visit [address] [phone] Danya You PA [address] [place] [address] Aliya Kim, MARKETING DEVELOPMENT MANAGER [address] [facility], [address] [place] [address] 02/19/2024 3:00 PM CDT [facility] 150 [facility] [address] Danya You, AMAIRANI [address] [place] [address] Isabel Beaulieu, OTR [facility] 150 [place] [address] 02/26/2024 2:15 PM CDT Therapy Visit [facility] [address] [place] [address] Danya You, AMAIRANI 2450 [facility] [address] [place] [address] Charis Chacon, [facility] [address] [place] [address] 02/26/2024 3:00 PM CDT Therapy Visit [facility] [address] [place] [address] Danya You, PA [address] [place] [address] Isabel Beaulieu, OTR [facility] [address] [place] [address] 02/27/2024 4:45 PM CDT Therapy Visit [facility] [address] [place] [address] Danya You PA [address] [place] [address] Vanessa Duggan, PT 03/05/2024 1:30 PM CDT Therapy Visit [address] [address] Danya You, PA [address] [place] [address] Isabel Beaulieu, OTR [address] [address] 03/05/2024 3:15 PM CDT Therapy Visit [address] [phone] Danya You, AMAIRANI [address] [place] [address] Charis Chacon, MARKETING DEVELOPMENT MANAGER [facility] [address] [place] [address] 03/05/2024 4:15 PM CDT Therapy Visit [address] [phone] Danya You, PA 2450 [facility] [address] [place] [address] Delicia George, PT [facility] [place] [address] [place] [address] 03/11/2024 2:15 PM CDT Therapy Visit [address] [phone] Danya You, PA [address] [address] Isabel Beaulieu, OTR FV [address] [address] 03/11/2024 3:00 PM CDT Therapy Visit [facility] 150 [place] [address] Danya You, PA [address] [address] Charis Chacon, [facility] [address] [place] [address] 03/11/2024 4:15 PM CDT Therapy Visit [address] [phone] Danya You, PA [address] [address] Delicia George, PT [facility] [address] [place] [address] 03/17/2024 1:30 PM CDT Therapy Visit [facility] 150 [place] [address] Danya You, PA [address] [address] Isabel Beaulieu, OTR [facility] [address] [place] [address] 03/17/2024 2:30 PM CDT Therapy Visit [address] [place] [place] [address] Danya You, PA [address] [place] [address] Charis Chacon, JUAN [facility] [address] [place] [address] 03/17/2024 4:00 PM CDT Therapy Visit [address] [address] Danya You, AMAIRANI [address] [address] Delicia George, PT [facility] [address] [address] 03/23/2024 10:30 AM CDT Office Visit [facility] [address] [place] [address] Denise Woodson Ra, HEMATOLOGY SUPERVISOR BOOKKEEPING MACHINE MECHANIC [address] [place], [place] [address] 03/26/2024 1:30 PM CDT Therapy Visit [address] [phone] Danya You PA [address] 989[address] Isabel Beaulieu, JAIMIE [address] [address] 03/26/2024 2:30 PM CDT Therapy Visit [address] [place] [address] Danya You PA [address] [place], [place] [address] Charis Chacon SLP [facility] [address] [place], [place] [address] 03/26/2024 3:30 PM CDT Therapy Visit [facility] 150 [place] [address] Danya You, AMAIRANI [address] [place] [address] Delicia George, PT [facility] [address] [address] 04/02/2024 2:15 PM CDT Therapy Visit [facility] 150 [place] [address] Danya You, PA [address] [address] Isabel Beaulieu, OTR [facility] 150 [place] [address] 04/02/2024 3:15 PM CDT Therapy Visit [facility] 150 [place] [address] Danya You, AMAIRANI [address] [place] [address] Charis Chacon, JUAN [facility] [address] [place], [place] [address] 04/02/2024 4:15 PM CDT Therapy Visit [address] [address] Danya You PA [address] [place] [address] Delicia George, PT [address] [address] 04/09/2024 3:15 PM CDT Therapy Visit [address] [address] Danya You, AMAIRANI [address] [address] Charis Chacon, MARKETING DEVELOPMENT MANAGER [facility] [address] [place] [address] 04/09/2024 4:15 PM CDT Therapy Visit [address] [address] Danya You, PA [address] [place] [address] Delicia George, PT [address] [address] 04/15/2024 9:30 AM CDT Therapy Visit [address] [address] Danya You PA [address] [address] Danya Restrepo, MARKETING DEVELOPMENT MANAGER 04/23/2024 2:30 PM CDT Therapy Visit [facility] 150 [place] [address] Danya You, PA 2450 [facility] 213 [place] [address] Charis Chacon, JUAN [facility] [address] [place] [address] 06/23/2024 11:00 AM CDT Virtual Visit [facility] [address] [address] Kristin Vázquez, [facility] [address] [place] [address] 06/30/2024 2:00 PM CDT Virtual Visit [facility] [address] [address] Kristin Vázquez, [facility] [address] [place] [address] documented as of this encounter Visit Diagnoses Not on filedocumented in this encounter Additional Health Concerns Assessment Noted Time PHQ-9 Depression Total Score: 0 06/23/20 21 4:11 PM CDT documented as of this encounter Care Teams Local Government Legislator Relationship Specialty Start Date End Date Winston Villatoro OD [facility] [place] [address] [facility] [address] [place] [address] PCP - Ophthalmology Ophthalmology 02/11/13 Denise Woodson Ra, HEMATOLOGY SUPERVISOR BOOKKEEPING MACHINE MECHANIC [address] [address] [place] [address] PCP - General Family Practice 09/21/20 Denise Woodson Ra, APRN BOOKKEEPING MACHINE MECHANIC [address] [place] [address] Assigned PCP 07/17/20 Usha Simon APRN BOOKKEEPING MACHINE MECHANIC 909 [facility]2121[place], [place] [address] Nurse Practitioner Neurological Surgery 01/24/24 Dangelo Salinas MD [address] [place] [address] Neurology 01/27/24 documented as of this encounter
--- OUTSIDE RECORDS SUMMARY | 2024-02-02 22:32 | XMS_ITS | Encounter Summary ---
Author Name Unknown Organization [facility] Address [address] [place] [address] Care Team Providers Care Tree Feller Operator Name Role Phone Winston Villatoro OD Unavailable Denise Woodson Ra, APRN MUSIC REHABILITATION THERAPIST Unavailable +- [phone] Denise Woodson Ra, APRN MUSIC REHABILITATION THERAPIST Primary Care Provid er Usha Simon APRN MUSIC REHABILITATION THERAPIST Unavailable [phone]- [phone] Dangelo Salinas MD Unavailable Encounter Details Date Type Department Care Team (Late st Contact Info) Description 01/29/2024 MyC Medical Advice [address] [phone] Danya Restrepo, HOUSE CLEANER Social History Tobacco Use Types Packs/Day Years [...] Description 02/03/2024 8:45 AM CDT Therapy Visit [address] [address] Denise Woodson Ra, FIELD CAPTAIN MUSIC REHABILITATION THERAPIST [address] [place] [address] Addis Rojas, PT [facility] [address] [place] [address] 02/04/2024 PRE VISIT [facility] [address] [phone] Raul Hoyos MD [address] [place] [id number] *-*INCOMING RECORDS*-* 02/04/2024 11:00 AM CDT Virtual Visit [facility] [address] [address] Raul Hoyos MD [address] [place] [address] 02/06/2024 8:30 AM CDT Office Visit [facility] [address] [place] [phone] Denise Woodson Ra, FIELD CAPTAIN MUSIC REHABILITATION THERAPIST [address] [place] [address] 02/07/2024 2:00 PM CDT Therapy Visit [facility] [address] [phone] Danya You, PA [address] [place] [address] Charis Chacon, HOUSE CLEANER [facility] [address] [place] [address] 02/14/2024 12:45 PM CDT Therapy Visit [address] [phone] Danya You, PA [address] [place] [address] Isabel Beaulieu, OTR [address] [address] 02/14/2024 2:00 PM CDT Therapy Visit [address] [phone] Danya You PA [address] [address] Charis Chacon, JUAN [facility] [address] [place] [address] 02/14/2024 2:45 PM CDT Therapy Visit [address] [phone] Danya You, PA [address] [address] Maria Eugenia Nguyen, PT 2155 [place] [address] 02/17/2024 2:45 PM CDT Therapy Visit [address] [phone] Danya You PA [address] [place] [address] Aliya Kim, HOUSE CLEANER [address] [facility] [address] [place] [address] 02/19/2024 3:00 PM CDT Therapy Visit [facility] [address] [facility] [place] [address] Danya You, AMAIRANI [address] [place] [address] Isabel Beaulieu, OTR [facility] 150 [place] [address] 02/26/2024 2:15 PM CDT [facility] 150 [place] [address] Danya You, AMAIRANI [address] [address] Charis Chacon, M [facility] [address] [place] [address] 02/26/2024 3:00 PM CDT [facility] 150 [place] [address] Danya You, PA [address] [address] Isabel Beaulieu, OTR [facility] 150 [place] [address] 02/27/2024 4:45 PM CDT Therapy [facility] 150 [place] [address] Danya You, AMAIRANI [address] [address] Vanessa Duggan, PT 03/05/2024 1:30 PM CDT Therapy Visit [address] [phone] Danya You, PA 2450 [facility] [address] [place] [address] Isabel Beaulieu, OTR [address] [address] 03/05/2024 3:15 PM CDT Therapy Visit [address] [phone] Danya You, PA 2450 [facility] C[facility]ON [address] [address] Charis Chacon, HOUSE CLEANER [facility] [address] [place] [address] 03/05/2024 4:15 PM CDT Therapy Visit [address] [phone] Danya You, PA [address] [address] Delicia George, PT [facility] [place] 909 [place] [address] 03/11/2024 2:15 PM CDT Therapy Visit [address] [phone] Danya You, PA [address] [address] Isabel Beaulieu, OTR [facility] 150 [place] [address] 03/11/2024 3:00 PM CDT Therapy Visit [facility] [place] [address] [place] [phone] Danya You, PA [address] [address] Charis Chacon, JUAN [facility] [address] [place] [address] 03/11/2024 4:15 PM CDT Therapy Visit [address] [phone] Danya You, PA [address] [address] Delicia George, PT [facility] [address] [place] [address] 03/17/2024 1:30 PM CDT Therapy Visit [facility] [address] [place] [address] Danya You, PA [address] [address] Isabel Beaulieu, OTR [facility] 150 [place] [address] 03/17/2024 2:30 PM CDT Therapy Visit [facility] 150 [place] [address] Danya You, PA Yoh[address] [place] [address] Charis Chacon SLP [facility] [address] [place] [address] 03/17/2024 4:00 PM CDT Therapy Visit [address] [phone] Danya You, AMAIRANI 7270 [facility] JIE SOTO [address] [place] [address] Delicia George, PT [facility] [address] [address] 03/23/2024 10:30 AM CDT Office Visit [facility] [address] [place] [address] Denise Woodson Ra, FIELD CAPTAIN MUSIC REHABILITATION THERAPIST [address] [place], [place] [phone] 03/26/2024 1:30 PM CDT Therapy Visit [address] [phone] Danya You PA 245Darren [facility] JIE SOTO [address] [place] [address] Isabel Beaulieu OTR [address] [address] 03/26/2024 2:30 PM CDT Therapy Visit [address] [phone] Danya You PA [address] [place], [place] 14[address] Charis Chacon SLP [facility] [address] [place] [address] 03/26/2024 3:30 PM CDT Therapy Visit [facility] 150 [place] [address] Danya You, AMAIRANI [address] [place] [address] Delicia George, PT [facility] [address] [address] 04/02/2024 2:15 PM CDT Therapy Visit [facility] 150 [place] [address] Dnaya You, PA [address] [place] [address] Isabel Beaulieu, OTR [facility] 150 [place] [address] 04/02/2024 3:15 PM CDT Therapy Visit [facility] 150 [place] [phone] Danya You, AMAIRANI [address] [place] [address] Charis Chacon, JUAN [facility] [address] [place], [place] 8[address] 04/02/2024 4:15 PM CDT Therapy Visit [address] [phone] Danya You, AMAIRANI [address] [place] [address] Delicia George, PT [address] [address] 04/09/2024 3:15 PM CDT Therapy Visit [address] [phone] Danya You, PA [address] [address] Charis Chacon, HOUSE CLEANER [facility] [address] [place] [address] 04/09/2024 4:15 PM CDT Therapy Visit [address] [address] Danya You, PA [address] [place] [address] Delicia George, PT [address] [address] 04/15/2024 9:30 AM CDT Therapy Visit [address] [phone] Danya You PA [address] [place] [address] Danya Restrepo, HOUSE CLEANER 04/23/2024 2:30 PM CDT Therapy Visit [facility] 150 [place] [phone] Danya You, PA 9720 [facility] 213 [place] [address] Charis Chacon, JUAN [facility] [address] [place] [address] 06/23/2024 11:00 AM CDT Virtual Visit [facility] [address] [phone] Kristin Vázquez, [facility] 6341 [place] [address] 06/30/2024 2:00 PM CDT Virtual Visit [facility] [address] [address] Kristin Vázquez, [facility] 6341 [place] [address] documented as of this encounter Visit Diagnoses Not on filedocumented in this encounter Additional Health Concerns Assessment Noted Time PHQ-9 Depression Total Score: 0 06/23/20 21 4:11 PM CDT documented as of this encounter Care Teams Tree Feller Operator Relationship Specialty Start Date End Date Winston Villatoro OD [facility] [address] [facility] [address] [place] [address] PCP - Ophthalmology Ophthalmology 02/11/13 Denise Woodson Ra, FIELD CAPTAIN MUSIC REHABILITATION THERAPIST [address] [address] [place] [address] PCP - General Family Practice 09/21/20 Denise Woodson Ra, APRN MUSIC REHABILITATION THERAPIST [address] [place] [address] Assigned PCP 07/17/20 Usha Simon APRN MUSIC REHABILITATION THERAPIST 9 [facility]121[place], [place] [address] Nurse Practitioner Neurological Surgery 01/24/24 Dangelo Salinas MD [address] [place] [address] Neurology 01/27/24 documented as of this encounter
--- OUTSIDE RECORDS SUMMARY | 2024-02-02 22:32 | XMS_ITS | Encounter Summary ---
Author Name Unknown Organization [facility] Address [address] [place] [address] Care Team Providers Care Furniture Stainer Name Role Phone ShaunaWinston OD Unavailable [phone] Denise Woodson Ra, APRN CO FOUNDER AND PRESIDENT Unavailable + [phone] Denise Woodson Ra, APRN CO FOUNDER AND PRESIDENT Primary Care Provid er Usha Simon APRN CO FOUNDER AND PRESIDENT Unavailable +- [phone] Dangelo Salinas MD Unavailable Encounter Details Date Type Department Care Team (Late st Contact Info) Description 01/30/2024 Telephone [facility] [address] 3rd [place] [address] Stacey Kelley RN Social History [...] have most of her other care in [facility] and is going to stay in [facility](except for neurosurgery) she should follow there. If she is going to stay in our system, I can seeher. Thanks Called patient to discuss where most of her care is taking place. [facility] for patient letting her knowI was calling from Dr. Hoyos's office with a couple questions and will send her a [employer] message. Left my contact information for further questions/concerns. Stacey Kelley, RN 01/30/2024 10:15 AM documented in this encounter Plan of Treatment Upcoming Encounters Date Type Department Care Team (Late st Contact Info) Description 02/03/2024 8:45 AM CDT Therapy Visit [address] [phone] Denise Woodson Ra, PAYROLL BOOKKEEPER CO FOUNDER AND PRESIDENT [address] [place] [address] Addis Rojas, PT [facility] [address] [place], [place] [phone] 02/04/2024 PRE VISIT [facility] Neurology [address] [address] Raul Hoyos MD [address] [place] [id number] *-*INCOMING RECORDS*-* 02/04/2024 11:00 AM CDT Virtual Visit [facility] Neurology [address] [address] Raul Hoyos MD [address] [place] [id number] 02/06/2024 8:30 AM CDT Office Visit [facility] [address] [place] [phone] Denise Woodson Ra, PAYROLL BOOKKEEPER CO FOUNDER AND PRESIDENT [address] [place], [place] [phone] 02/07/2024 2:00 PM CDT Therapy Visit [address] [phone] Danya You, AMAIRANI [address] [place] [address] Charis Chacon SLP [facility] [address] [place] [address] 02/14/2024 12:45 PM CDT Therapy Visit [address] [phone] Danya You, AMAIRANI [address] [address] Isabel Beaulieu, OTR [address] [address] 02/14/2024 2:00 PM CDT Therapy Visit [address] [phone] Danya You PA [address] [place] [address] [address] Charis Chacon SLP [facility] [address] [place] [address] 02/14/2024 2:45 PM CDT [facility] 150 [place] [address] Danya You, PA 2450 [facility] 213 [place] [address] Maria Eugenia Nguyen, PT 2155 [place] [address] 02/17/2024 2:45 PM CDT Therapy [facility] 150 [place] [address] Danya You, AMAIRANI 2450 [facility] 213 [place] [address] Aliya Kim, SPIRAL MACHINE OPERATOR [address] [facility] 200 [place] [address] 02/19/2024 3:00 PM CDT Therapy Visit [address] [phone] Danya You, PA 2450 [facility] 213 [place] [address] Isabel Beaulieu, OTR [address] [address] 02/26/2024 2:15 PM CDT Therapy Visit [address] [phone] Danya You, PA 2450 [facility] 213 [place] [address] Charis Chacon, JUAN [facility] [address] [place] [address] 02/26/2024 3:00 PM CDT Therapy [facility] 150 [place] [address] Danya You, PA 2450 [facility] 213 [place] [address] Isabel Beaulieu, OTR [facility] 150 [place] [address] 02/27/2024 4:45 PM CDT Therapy Visit [address] [phone] Danya You, PA 2450 [facility] 213 [place], [place] [address] Vanessa Duggan, PT 03/05/2024 1:30 PM CDT Therapy Visit [address] [phone] Danya You, PA [facility] [address] [place] [address] Isabel Beaulieu OTR [facility] 150 [place] [address] 03/05/2024 3:15 PM CDT Therapy Visit [address] [phone] Danya You, PA [address] [place], [place] [address]E 213 [place] [address] Charis Chacon, [facility] [address] [place] [address] 03/05/2024 4:15 PM CDT Therapy Visit [address] [phone] Danya You PA [address] [place] [address] Delicia George, PT [facility] [address] [address] 03/11/2024 2:15 PM CDT Therapy Visit [address] [phone] Danya You, AMAIRANI [address] [place] [address] Isabel Beaulieu, OTJah [address] [address] 03/11/2024 3:00 PM CDT Therapy Visit [address] [phone] Danya You, PA [address] [address] Charis Chacon, J[facility]AN [facility] [address] [place] [address] 03/11/2024 4:15 PM CDT Therapy Visit [address] [phone] Danya You PA [address] [place] [address] Delicia George, PT [address] [address] 03/17/2024 1:30 PM CDT Therapy Visit [address] [phone] Danya You, PA [address] [address] Isabel Beaulieu OTR [address] [address] 03/17/2024 2:30 PM CDT Therapy Visit [address] [phone] Danya You, PA [address] [address] Charis Chacon, [facility] [address] [place] [address] 03/17/2024 4:00 PM CDT Therapy Visit [address] [phone] Danya You, PA [address] [address] Delicia George, PT [address] [address] 03/23/2024 10:30 AM CDT Office Visit [address] [address] Denise Woodson Ra, PAYROLL BOOKKEEPER CO FOUNDER AND PRESIDENT [address] [facility] [place] [address] 03/26/2024 1:30 PM CDT Therapy Visit [address] [phone] Danya You, PA 2450 [facility] 213 [place] [address] Isabel Beaulieu, OTR [address] [address] 03/26/2024 2:30 PM CDT Therapy Visit [address] [phone] Danya You, PA [address] [address] Charis Chacon, [facility]AN [facility] [address] [place] [address] 03/26/2024 3:30 PM CDT Therapy Visit [address] [phone] Danya You, PA [address] [address] Delicia George, PT [facility] [address] [address] 04/02/2024 2:15 PM CDT Therapy Visit [address] [address] Danya You PA [address] [place] [address] Isabel Beaulieu, OTR [facility] 150 [place] [address] 04/02/2024 3:15 PM CDT Therapy Visit [address] [address] Danya You, PA [address] [place] [address] [address] Charis Chacon, [facility] [address] [place] [address] 04/02/2024 4:15 PM CDT Therapy Visit [address] [phone] Danya You, PA [address] [address] Delicia George, PT [facility] [address] [address] 04/09/2024 3:15 PM CDT Therapy Visit [address] [phone] Danya You, AMAIRANI 2450 [facility] J[facility] SOTO [address] [place] [address] Charis Chacon, J[facility]AN [facility] [address] [place] [address] 04/09/2024 4:15 PM CDT Therapy Visit [address] [phone] Danya You, PA [address] [address] Delicia George, PT [address] [address] 04/15/2024 9:30 AM CDT Therapy Visit [address] [address] Danya You, PA [address] [address] Danya Restrepo, SPIRAL MACHINE OPERATOR 04/23/2024 2:30 PM CDT Therapy Visit [address] [address] Danya You, PA [address] [place] [address] Charis Chacon, J[facility]AN [facility] [address] [place] [address] 06/23/2024 11:00 AM CDT Virtual Visit [facility] [address] [place] [phone] Kristin Vázquez, [facility] 6341 [place] [address] 06/30/2024 2:00 PM CDT Virtual Visit [facility] Mental Health & Addiction [facility] 6401 [facility] [place] [phone] Kristin Vázquez, [facility] 6341 [facility] [place] [phone] documented as of this encounter Visit Diagnoses Not on filedocumented in this encounter Additional Health Concerns Assessment Noted Time PHQ-9 Depression Total Score: 0 06/23/20 21 4:11 PM CDT documented as of this encounter Care Teams Furniture Stainer Relationship Specialty Start Date End Date Winston Villatoro, OD [facility] [address] [place] [address] PCP - Ophthalmology Ophthalmology 02/11/13 Denise Woodson Ra, APRN CO FOUNDER AND PRESIDENT [address] [place] [address] PCP - General Family Practice 09/21/20 Denise Woodson Ra, APRN CO FOUNDER AND PRESIDENT [address] [place] [address] Assigned PCP 07/17/20 Usha Simon APRN CO FOUNDER AND PRESIDENT 909 [facility] [place] [address] Nurse Practitioner Neurological Surgery 01/24/24 Dangelo Salinas MD [address] [place] [address] Neurology 01/27/24 documented as of this encounter
--- OUTSIDE RECORDS SUMMARY | 2024-02-02 22:32 | XMS_ITS | Encounter Summary ---
Author Name Unknown Organization [facility] Address [address] [place] [address]. [place] [address] Care Team Providers Care Film Writer Name Role Phone ShaunaWinston OD Unavailable [phone] Denise Woodson Ra, APRN WARP COILER Unavailable + [phone] Denise Woodson Ra, APRN WARP COILER Primary Care Provid er Usha Simon APRN WARP COILER Unavailable + [phone] Dangelo Salinas MD Unavailable Encounter Details Date [...] Description 02/03/2024 8:45 AM CDT Therapy Visit [facility] [address] [address] Denise Woodson Ra, HOMICIDE SQUAD COMMANDING OFFICER WARP COILER [address] [place] [address] Addis Rojas, PT [facility] [address] [place] [address] 02/04/2024 PRE VISIT [facility] [address] [phone] Raul Hoyos MD [address] [place] [address] *-*INCOMING RECORDS*-* 02/04/2024 11:00 AM CDT Virtual Visit [facility] Neurology [address] [phone] Raul Hoyos MD [address] [place] [address] 3[address]45 02/06/2024 8:30 AM CDT Office Visit [facility] [address] [place] [address] Denise Woodson Ra, HOMICIDE SQUAD COMMANDING OFFICER WARP COILER [address] [place], [place] [phone] 02/07/2024 2:00 PM CDT Therapy Visit [facility] 150 [place] [address] Danya You, PA 2440 [facility] 213 [place], [place] 290[address] Charis Chacon, LINER ASSEMBLER [facility] [address] [place] [address] 02/14/2024 12:45 PM CDT Therapy Visit [facility] [address] [place] [address] Danya You PA 2450 [facility] [address] [place] [address] Isabel Beaulieu, OTR [facility] 150 [place] [address] 02/14/2024 2:00 PM CDT Therapy Visit [facility] 150 [place] [phone] Danya You PA 2450 [address] [address] Charis Chacon, JUAN [facility] [address] [place] [address] 02/14/2024 2:45 PM CDT Therapy Visit [address] [phone] Danya You, PA 2450 [address] [address] [address] Maria Eugenia Nguyen, PT 2155 [place] [address] 02/17/2024 2:45 PM CDT Therapy Visit [address] [phone] Danya You PA 5950 [facility] JIE [address] [address] Aliya Kim, LINER ASSEMBLER [address] [facility] [address] [address] 02/19/2024 3:00 PM CDT Therapy Visit [facility] 150 [place] [address] Danya You, AMAIRANI 2450 [facility] S[facility] 213 [place] [address] Isabel Beaulieu, OTR [facility] 150 [place] [address] 02/26/2024 2:15 PM CDT Therapy Visit [address] [phone] Danya You, AMAIRANI 2450 [facility] [address] [address] Charis Chacon, JUAN [facility] [address] [place] [address] 02/26/2024 3:00 PM CDT Therapy Visit [address] [phone] Danya You, AMAIRANI 2450 [facility] 213 [place] [address] Isabel Beaulieu, OTR [facility] 150 [place] [address] 02/27/2024 4:45 PM CDT Therapy Visit [address] [phone] Danya You PA 2450 [facility] 213 [place] [address] Vanessa Duggan, PT 03/05/2024 1:30 PM CDT Therapy Visit [facility] [address] [place] [phone] Danya You PA 24[address] [address] Isabel Beaulieu, OTR [facility] [address] [place] [address] 03/05/2024 3:15 PM CDT Therapy Visit [facility] [address] [place] [phone] Danya You, AMAIRANI [facility] [address] [address] Charis Chacon, [facility] [address] [place] [address] 03/05/2024 4:15 PM CDT Therapy Visit [facility] [address] [place] [phone] Danya You, AMAIRANI [facility] [address] [address] Delicia George, PT [facility] [address] [address] 03/11/2024 2:15 PM CDT Therapy Visit [facility] [address] [place] [phone] Danya You PA [facility] [address] [address] Isabel Beaulieu, OTR [facility] 150 [facility] [place] [address] 03/11/2024 3:00 PM CDT Therapy Visit [facility] [address] [place] [phone] Danya You, AMAIRANI 2450 [address] [place] [address] Charis Chacon, JUAN [facility] [address] [place] [address] 03/11/2024 4:15 PM CDT Therapy Visit [address] [phone] Danya You, AMAIRANI [address] [place] [address] [phone] Delicia George, PT [facility] [address] [place] [address] 03/17/2024 1:30 PM CDT Therapy Visit [address] [phone] Danya You, PA 2450 [address] [place] [address] Isabel Beaulieu, OTR [facility] 150 [place] [address] 03/17/2024 2:30 PM CDT Therapy Visit [facility] 150 [place] [address] Danya You, PA [address] [place] [address] Charis Chacon, [facility] [address] [place] [address] 03/17/2024 4:00 PM CDT Therapy Visit [facility] [address] [place] [phone] Danya You, PA 2450 [address] SOTO [address] [place] [address] Delicia George, PT [address] [address] 03/23/2024 10:30 AM CDT Office Visit [facility] [address] [place] [phone] Denise Woodson Ra, HOMICIDE SQUAD COMMANDING OFFICER WARP COILER [address] [place], [place] [phone] 03/26/2024 1:30 PM CDT Therapy Visit [address] [phone] Danya You, PA 6630 [address] SOTO [address] [place] [address] Isabel Beaulieu, JAIMIE [facility] 150 [place] [address] 03/26/2024 2:30 PM CDT Therapy Visit [facility] [address] [place] [address] Danya You, PA 2450 [address] SOTO [address] [place] [address] Charis Chacon, JUAN [facility] [address] [place] [address] 03/26/2024 3:30 PM CDT Therapy Visit [facility] [address] [place] [address] Danya You, PA [address] [place] [address] Deilcia George, PT [address] [address] 04/02/2024 2:15 PM CDT Therapy Visit [facility] [address] [place] [address] Danya You, PA [address] [place] [address] Isabel Beaulieu, OTR [facility] 150 [place] [address] 04/02/2024 3:15 PM CDT Therapy Visit [facility] [address] [place] [phone] Danya You, PA [address] [place] [address] Charis Chacon, JUAN [facility] [address] [place] [address] 04/02/2024 4:15 PM CDT Therapy Visit [facility] [address] [place] [address] Danya You, PA [address] [address] Delicia George, PT [address] [address] 04/09/2024 3:15 PM CDT Therapy Visit [address] [address] Danya You, PA [address] [address] Charis Chacon, [facility] [place] [address] 04/09/2024 4:15 PM CDT Therapy Visit [address] [phone] Danya You, PA 2450 [facility] JULIE [address] [address] Delicia George, PT [address] [address] 04/15/2024 9:30 AM CDT Therapy Visit [address] [phone] Danya You, PA [facility] [address] [address] Danya Restrepo SLP 04/23/2024 2:30 PM CDT [facility] [address] [place] [address] Danya You, PA 5570 [facility] 213 [place] [address] Charis Chacon, [facility] [address] [place] [address] 06/23/2024 11:00 AM CDT Virtual Visit [facility] [address] [place] [address] Kristin Vázquez, [facility] 6341 [place] [address] 06/30/2024 2:00 PM CDT Virtual Visit [facility] [address] [place] [address] Kristin Vázquez, [facility] [address] [place] [phone] documented as of this encounter Visit Diagnoses Not on filedocumented in this encounter Additional Health Concerns Assessment Noted Time PHQ-9 Depression Total Score: 0 06/23/20 21 4:11 PM CDT documented as of this encounter Care Teams Film Writer Relationship Specialty Start Date End Date Winston Villatoro, AM[facility]IE [facility] [place] [address] [place] [address] PCP - Ophthalmology Ophthalmology 02/11/13 Denise Woodson Ra, HOMICIDE SQUAD COMMANDING OFFICER WARP COILER [address] [place] [address] PCP - General Family Practice 09/21/20 Denise Woodson Ra, APRN WARP COILER [address] [facility] [place] [address] Assigned PCP 07/17/20 Usha Simon APRN WARP COILER 909 [facility], [place] [address] Nurse Practitioner Neurological Surgery 01/24/24 Dangelo Salinas MD [address] [place] [address] Neurology 01/27/24 documented as of this encounter
--- OUTSIDE RECORDS SUMMARY | 2024-02-02 22:32 | XMS_ITS | Encounter Summary ---
Author Name Unknown Organization [facility] Address [address] [place] [address]. [place] [address] Care Team Providers Care Adapted Physical Education Teacher Name Role Phone Winston Villatoro OD Unavailable Denise Woodson Ra, APRN FIELD AUTO APPRAISER Unavailable [phone] Denise Woodson Ra, APRN FIELD AUTO APPRAISER Primary Care Provid er Usha Simon APRN FIELD AUTO APPRAISER Unavailable [phone] Dangelo Salinas MD Unavailable Reason for Visit * Rehab Therapy Integrated Services (Routine) - Authorized Specialty Diagnoses / Procedures Referred By Nila shah Referred To Contact Diagnoses Cerebrovascular accident (CVA), unspecified mechanism (H) [address] [address] Referral ID Status Reason Start Date Expiration Date V isits Requested Visits Authorized [id number] Authorized 09/16/2023 09/15/2024 365 365 Encounter Details Date Type Department Care Team (Latest Contact Info) Description 01/29/2024 9:30 AM CDT Therapy Visit [address] [address] Danya You, PA [address] [place] [phone] Danya Restrepo, HYDROGEN POWER PLANT ENGINEER Cerebrovascular accident (CVA), unspecified mechanism (H) Social [...] this encounter Progress Notes * Danya Restrepo, HYDROGEN POWER PLANT ENGINEER - 01/29/2024 9:30 AM CDT SPEECH LANGUAGE PATHOLOGY EVALUATION See electronic medical record for Abuse and Falls Screening details. Subjective Patient has a PMH of Lizy-Danlos syndrome, mild persistent asthma, anxiety and depression, and fibromyalgia who presented for a planned catheter angiogram at [facility] for left sided pulsatile [...] a seizure like activity and went to [facility] for a few days. Discharged in setting of acute mental status change, concern for seizure, workup felt not consistent with seizure, episodes felt related to fatigue/stress. Functionally making progress with ongoing strength, balance, activity tolerance, and cognition below baseline, plan for home with outpatient PT/OT/HYDROGEN POWER PLANT ENGINEER. ARU from 01/21-01/26/24 before discharging home. She has been doing well being home - She also notes a lot of mental and physical fatigue. She can do something for about 15-20 minutes then takes a 20 minute nap. Presenting condition or subjective complaint: recent CVA; patient reported that things seem to be coming back slowly. Artesian like she had ADD tendencies at baseline. 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 Did not qualify for FMLA. On LITA for 6 months.Disability approved for 8 weeks. 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 Rationale: To maximize safety and independence with cognitive function within the home or community Target Date: 04/27/24 HYDROGEN POWER PLANT ENGINEER Goal 2 Goal Identifier: Memory Goal Description: Alcon will complete moderate-complex memory based tasks with >90% accuracy given environmental supports across 2 consecutive sessions. Rationale: To maximize safety and independence with cognitive function within the home or community Target Date: 04/27/24 HYDROGEN POWER PLANT ENGINEER Goal 3 Goal Identifier: Problem Solving Goal Description: Alcon will complete moderate-complex deductive reasoning/problem solving tasks with >90% accuracy given environmental supports across 2 consecutive sessions. Rationale: To maximize safety and independence with cognitive function within the home or community Target Date: 04/27/24 HYDROGEN POWER PLANT ENGINEER Goal 4 Goal Identifier: Standardized Assessment Goal [...] Sound production (artic, phonology, apraxia, dysarthria) Minutes (41581): 45 The patient will be discharged from therapy when longterm goals are met, displays a plateau in progress, or demonstrates resistance or low motivation for therapy after redirections have been made. The patient may be discharged from therapy when parents or guardians wish to discontinue therapy and/or fails to adhere to [facility]'s attendance policy. Thank you for referring Alcon Zamora to outpatient speech therapy at [facility]. Please call Danya Restrepo MS, HYDROGEN POWER PLANT ENGINEER-CCC at [phone] or email with any questions or concerns. Danya Restrepo MS, CCC-HYDROGEN POWER PLANT ENGINEER documented in this encounter Plan of Treatment Upcoming Encounters Date Type Department Care Team (Late st Contact Info) Description 02/03/2024 8:45 AM CDT Therapy Visit [facility] [address] [address] Denise Woodson Ra, QUALITY ASSURANCE TECH FIELD AUTO APPRAISER [address] [place] [address] Addis Rojas, PT [facility] [address] [place] [address] 02/04/2024 PRE VISIT [facility] [address] 3rd [place] [phone] Raul Hoyos MD [address] [place] [address] *-*INCOMING RECORDS*-* 02/04/2024 11:00 AM CDT Virtual Visit [facility] Neurology [address] [phone] Raul Hoyos MD [address] [place] [address] 02/06/2024 8:30 AM CDT Office Visit [facility] [address] [place] [phone] Denise Woodson Ra, QUALITY ASSURANCE TECH FIELD AUTO APPRAISER [address] [place], [place] [phone] 02/07/2024 2:00 PM CDT Therapy Visit [address] [phone] Danya You PA [address] [place] [address] Charis Chacon, [facility] [address] [place] [address] 02/14/2024 12:45 PM CDT Therapy Visit [facility] 150 [place] [address] Danya You PA [address] [place] [address] Isabel Beaulieu, OTR [address] [address] 02/14/2024 2:00 PM CDT Therapy Visit [address] [phone] Danya You, PA 2450 [facility] 213 [place] [address] Charis Chacon, [facility] [address] [place] [address] 02/14/2024 2:45 PM CDT Therapy Visit [address] [phone] Danya You, PA 2450 [facility] [address] [address] Maria Eugenia Nguyen, PT 2155 [place] [address] 02/17/2024 2:45 PM CDT Therapy Visit [address] [phone] Danya You, PA 2450 [facility] [address] [place] [address] Aliya Kim, HYDROGEN POWER PLANT ENGINEER [address] [address] 02/19/2024 3:00 PM CDT Therapy Visit [address] [phone] Danya You PA [address] CHARLES [address] [place] [address] Isabel Beaulieu, OTR [facility]E 150 [facility] [place] [address] 02/26/2024 2:15 PM CDT [facility] [address] [place] [address] Danya You, PA [address] [address] Charis Chacon, [facility] [address] [place] [address] 02/26/2024 3:00 PM CDT [facility] [address] [place] [address] Danya You, PA [address] [address] Isabel Beaulieu, OTR [facility] 150 [place] [address] 02/27/2024 4:45 PM CDT [facility] [address] [place] [address] Danya You, PA [address] [address] Vanessa Duggan, PT 03/05/2024 1:30 PM CDT [facility] [address] [place] [address] Danya You PA [address] [place] [address] Isabel Beaulieu, OTR FV [address] [address] 03/05/2024 3:15 PM CDT Therapy Visit [address] [phone] Danya You, AMAIRANI [address] [address] Charis Chacon, [facility] [address] [place] [address] 03/05/2024 4:15 PM CDT Therapy Visit [address] [phone] Danya You, PA [address] 866[address] Delicia George, PT [facility] [address] [place] [address] 03/11/2024 2:15 PM CDT Therapy Visit [address] [phone] Danya You, PA [address] 509074 Isabel Beaulieu, OTR FV [address] [address] 03/11/2024 3:00 PM CDT Therapy Visit [address] [phone] Danya You PA [address] [address] Charis Chacon, JUAN [facility] [address] [place] [address] 03/11/2024 4:15 PM CDT Therapy Visit [address] [phone] Danya You, AMAIRANI [address] [address] Delicia George, PT [facility] [address] [place] [address] 03/17/2024 1:30 PM CDT Therapy Visit [address] [phone] Danya You, PA [address] [address] Isabel Beaulieu, OTR [address] [address] 03/17/2024 2:30 PM CDT Therapy Visit [address] [phone] Danya You PA [address] [address] Charis Chacon, JUAN [facility] [address] [place] [address] 03/17/2024 4:00 PM CDT Therapy Visit [address] [phone] Danya You, PA 2450 [facility] [address] [place] [address] Delicia George, PT [facility] SURGERY [address] [address] 03/23/2024 10:30 AM CDT Office Visit [facility] [address] [place] [phone] Denise Woodson Ra, QUALITY ASSURANCE TECH FIELD AUTO APPRAISER [address] [place], [place] 84[address] 03/26/2024 1:30 PM CDT Therapy Visit [address] [phone] Danya You, PA 2450 [facility] [address] [address] Isabel Beaulieu OTR [address] [address] 03/26/2024 2:30 PM CDT Therapy Visit [address] [phone] Danya You, PA 9420 [facility] [address] [address] Charis Chacon, J[facility]AN [facility] [address] [place] [address] 03/26/2024 3:30 PM CDT Therapy Visit [facility] [address] [place] [address] Danya You, AMAIRANI [address] [place] [address] Delicia George, PT [facility] SURGERY [address] [address] 04/02/2024 2:15 PM CDT Therapy Visit [facility] [address] [place] [address] Danya You, AMAIRANI [address] 909964 Isabel Beaulieu, JAIMIE [facility] 150 [place] [address] 04/02/2024 3:15 PM CDT Therapy Visit [facility] 150 [place] [address] Danya You, PA [address] [address] Charis Chacon SLP [facility] [address] [place] [address] 04/02/2024 4:15 PM CDT Therapy Visit [facility] [address] [place] [address] Danya You, AMAIRANI [address] [address] Delicia George, PT [facility] [address] [place] [address] 04/09/2024 3:15 PM CDT Therapy Visit [address] [address] Danya You, PA [address] [address] Charis Chacon, [facility] [address] [place] [address] 04/09/2024 4:15 PM CDT Therapy Visit [address] [address] Danya You, PA [address] [address] Delicia George, PT [facility] [address] [place] [address] 04/15/2024 9:30 AM CDT Therapy Visit [address] [address] Danya You, PA [address] [address] Danya Restrepo, HYDROGEN POWER PLANT ENGINEER 04/23/2024 2:30 PM CDT Therapy Visit [address] [address] Danya You, PA [address] [place] [address] Charis Chacon, [facility] [address] [place] [address] 06/23/2024 11:00 AM CDT Virtual Visit [facility] & Addiction [address] [address] Kristin Vázquez, [facility] [address] [place] [address] 06/30/2024 2:00 PM CDT Virtual Visit [facility] Health & Addiction [address] [address] Kristin Vázquez, [facility] [address] [place] [address] documented as of this encounter Visit Diagnoses Diagnosis Cerebrovascular accident (CVA), unspecified mechanism (H) documented in this encounter Additional Health Concerns Assessment Noted Time PHQ-9 Depression Total Score: 0 06/23/20 21 4:11 PM CDT documented as of this encounter Care Teams Adapted Physical Education Teacher Relationship Specialty Start Date End Date Winston Villatoro OD [facility] [place] [address] [facility] [address] [place] [address] PCP - Ophthalmology Ophthalmology 02/11/13 Denise Woodson Ra, APRN FIELD AUTO APPRAISER [address] [address] [address] PCP - General Family Practice 09/21/20 Denise Woodson Ra, APRN FIELD AUTO APPRAISER [address] [address] [address] Assigned PCP 07/17/20 Usha Simon APRN FIELD AUTO APPRAISER [address] [facility] [address] [facility] [address] Nurse Practitioner Neurological Surgery 01/24/24 Dangelo Salinas MD [address] [place] [address] Neurology 01/27/24 documented as of this encounter
--- OUTSIDE RECORDS SUMMARY | 2024-02-02 22:32 | XMS_ITS | Encounter Summary ---
Author Name Unknown Organization [facility] Address [address] [place] [address] Care Team Providers Care Education Faculty Member Name Role Phone Winston Villatoro OD Unavailable [phone] Denise Woodson Ra, APRN FIRE EQUIPMENT REPAIRER INSPECTOR Unavailable + [phone] Denise Woodson Ra, APRN FIRE EQUIPMENT REPAIRER INSPECTOR Primary Care Provid er Usha Simon APRN FIRE EQUIPMENT REPAIRER INSPECTOR Unavailable + [phone] Dangelo Salinas MD Unavailable Reason for Visit * Reason Comments New Patient * Consultation (Routine: Next available opening) - Pending Review Specialty Diagnoses / Procedures Referred By Nila shah Referred To Contact Neurological Surgery Diagnoses Dural arteriovenous fistula Jeevan Sheth MD [address] [place] [address] Referral ID Status Reason Start Date Expiration Date V isits Requested Visits Authorized [id number] Pending Review 01/23/2024 01/22/2025 1 1 Encounter Details Date Type Department Care Team (Latest Contact Info) Description 01/31/2024 9:30 AM CDT Office Visit [facility] [address] [place] [address] Jeevan Sheth MD [address] [place] [address] Usha Simon APRN [address] [place] [address] Dural arteriovenous fistula Social History Tobacco Use [...] encounter Progress Notes * Usha Simon APRN FIRE EQUIPMENT REPAIRER INSPECTOR - 01/31/2024 9:30 AM CDT Images from the original note were not included. [facility] Department of Neurosurgery Name: Alcon Zamora Age: [age] year old : 1975 Referring provider: Jeevan Sheth 01/31/2024 Chief Complaint: Dural AVF Questionable FMD New Patient History of Present Illness: Alcon Zamora is a 48 year old female with past medical history of Lizy-Danlos syndrome, mild persistent asthma, anxiety and depression, fibromyalgia. [facility] for left sided pulsatile tinnitus on [...] Past Surgical History: Procedure Laterality Date C MUD TANK OPERATOR PROCEDURE DATE: vag del. C MUD TANK OPERATOR PROCEDURE DATE: 2000 tubal ligation C MUD TANK OPERATOR PROCEDURE DATE: 1994 D&C CARDIAC SURGERY 06/2006 heart defect repair ESOPHAGOSCOPY, GASTROSCOPY, DUODENOSCOPY (EGD), COMBINED N/A 02/08/2021 Procedure: ESOPHAGOGASTRODUODENOSCOPY (EGD); Surgeon: Tuan Miller MD; Location: GI GI SURGERY 09/2020 gallbladder removed HC KNEE SCOPE,MED/LAT MENISECTOMY 08/04/13 LT HEART CATH, CLOSURE ATRIAL SEPTAL DEFECT 06/20/06 amplatzer septal occluder- serial #[id number] RW MUD TANK OPERATOR (ABSTRACTED) pneumonia several times SURGICAL PATHOLOGY [...] Sensation intact throughout. Mild dysmetria with right ncchme-yong-uekyzi testing. Gait: Walks slowly with slightly wide [...] Description 02/03/2024 8:45 AM CDT Therapy Visit [address] [phone] Denise Woodson Ra, OUTDOOR STUDIES DIRECTOR FIRE EQUIPMENT REPAIRER INSPECTOR [address] [facility] [place] [address] Addis Rojas, PT [facility] [address] [place], [place] [id number] 02/04/[address] [facility] Neurology [address] [phone] Raul Hoyos MD [address] [place] [address] *-*INCOMING RECORDS*-* 02/04/2024 11:00 AM CDT Virtual Visit [facility] [address] [phone] Raul Hoyos MD [address] [place] [address] 02/06/2024 8:30 AM CDT Office Visit [facility] [address] [place] [phone] Denise Woodson Ra, OUTDOOR STUDIES DIRECTOR FIRE EQUIPMENT REPAIRER INSPECTOR [address] [facility] [place] [address] 02/07/2024 2:00 PM CDT Therapy Visit [address] [phone] Danya You PA [address] [place] [address] Charis Chacon, [facility] [address] [place] [address] 02/14/2024 12:45 PM CDT Therapy Visit [facility] [address] [place] [phone] Danya You, PA [address] [place] [address] Isabel Beaulieu OTR [facility] [address] [place] [address] 02/14/2024 2:00 PM CDT Therapy Visit [facility] [address] [place] [address] Danya You, AMAIRANI [address] [address] Charis Chacon, [facility] [address] [place] [address] 02/14/2024 2:45 PM CDT Therapy Visit [facility] [address] [place] [phone] Danya You, PA [address] [place], [place] [address] Maria Eugenia Nguyen, PT [address] [place] [address] 02/17/2024 2:45 PM CDT Therapy Visit [facility] [address] [place] [phone] Danya You, AMAIRANI [address] [place] [address] Aliya Kim, TRANSFORMATION LEAD [address] [facility], [address] [place] [address] 02/19/2024 3:00 PM CDT Therapy Visit [facility] [address] [place] [phone] Danya You, AMAIRANI 2450 [facility] [address] [address] Isabel Beaulieu OTR [facility] [address] [place] [address] 02/26/2024 2:15 PM CDT [facility] [address] [place] [phone] Danya You, PA [address] [place] [address] Charis Chacon, [facility] [address] [place] [address] 02/26/2024 3:00 PM CDT [facility] [address] [place] [phone] Danya You, AMAIRANI 2450 [facility] [address] [place] [address] Isabel Beaulieu OTR [facility] 150 [place] [address] 02/27/2024 4:45 PM CDT Therapy Visit [facility] [address] [place] [phone] Danya You PA [address] [address] Vanessa Duggan, PT 03/05/2024 1:30 PM CDT Therapy Visit [address] [phone] Danya You, AMAIRANI [address] [address] Isabel Beaulieu OTR [address] [address] 03/05/2024 3:15 PM CDT Therapy Visit [address] [phone] Danya You, AMAIRANI [address] [address] Charis Chacon, TRANSFORMATION LEAD [facility] [address] [place] [address] 03/05/2024 4:15 PM CDT Therapy Visit [address] [phone] Danya You, AMAIRANI [address] [place] [address] Delicia George, PT [facility] [address] [address] 03/11/2024 2:15 PM CDT Therapy Visit [address] [phone] Danya You, AMAIRANI [address] [place] [address] Isabel Beaulieu OTJah [address] [address] 03/11/2024 3:00 PM CDT Therapy Visit [address] [phone] Danya You, AMAIRANI [address] [place] [address] Charis Chacon, [facility] [address] [place] [address] 03/11/2024 4:15 PM CDT Therapy Visit [address] [phone] Danya You, PA [address] [place] [address] Delicia George, PT [facility] [address] [place] [address] 03/17/2024 1:30 PM CDT Therapy Visit [address] [phone] Danya You, PA [address] [place] [address] Isabel Beaulieu, OTR [address] [address] 03/17/2024 2:30 PM CDT Therapy Visit [address] [phone] Danya You, PA 2450 [facility] [address] [address] Charis Chacno, [facility] [address] [place] [address] 03/17/2024 4:00 PM CDT Therapy Visit [address] [phone] Danya You, PA [facility] [address] [address] Delicia George, PT [facility] [address] [place] [address] 03/23/2024 10:30 AM CDT Office Visit [facility] [address] [place] [address] Denise Woodson Ra, OUTDOOR STUDIES DIRECTOR [facility] [address] [place], [place] [address] 03/26/2024 1:30 PM CDT Therapy Visit [address] [phone] Danya You, PA [address] [address] Isabel Beaulieu, OTR [facility] 150 [facility] [place] [address] 03/26/2024 2:30 PM CDT Therapy Visit [facility] 150 [facility] [place] [phone] Danya You, AMAIRANI [address] [address] Charis Chacon, [facility] [address] [place] [address] 03/26/2024 3:30 PM CDT Therapy Visit [address] [phone] Danya You, PA [address] [address] Delicia Georeg, PT [facility] [address] [place] [address] 04/02/2024 2:15 PM CDT Therapy Visit [facility] [address] [place] [phone] Danya You, PA [address] [place] [address] Isabel Beaulieu, OTR [facility] [address] [place] [address] 04/02/2024 3:15 PM CDT Therapy Visit [facility] [address] [place] [phone] Danya You PA [address] [place] [address] Charis Chacon SLP [facility] [address] [place] [address] 04/02/2024 4:15 PM CDT Therapy Visit [address] [address] Danya You PA [address] [address] Delicia George, PT [address] [address] 04/09/2024 3:15 PM CDT Therapy Visit [address] [address] Danya You, AMAIRANI [address] [address] Charis Chacon, [facility] [address] [place] [address] 04/09/2024 4:15 PM CDT Therapy Visit [address] [phone] Danya You PA [address] [address] Delicia George, PT [address] [address] 04/15/2024 9:30 AM CDT Therapy Visit [facility] [address] [place] [address] Danya You, PA [address] [place] [address] Danya Restrepo SLP 04/23/2024 2:30 PM CDT Therapy Visit [facility] [address] [place] [phone] Danya You, PA [address]70 [facility] [address] [place] [address] Charis Chacon SLP [facility] [address] [place] [address] 06/23/2024 11:00 AM CDT Virtual Visit [facility] [address] [place] [address] Kristin Vázquez, [facility] [address] [place] [address] 06/30/2024 2:00 PM CDT Virtual Visit [facility] [address] [place] [address] Kristin Vázquez, [facility] [address] [place] [address] documented as of this encounter Visit Diagnoses Diagnosis Dural arteriovenous fistula Cerebral aneurysm, nonruptured documented in this encounter Additional Health Concerns Assessment Noted Time PHQ-9 Depression Total Score: 0 06/23/20 21 4:11 PM CDT documented as of this encounter Care Teams Education Faculty Member Relationship Specialty Start Date End Date Winston Villatoro OD [facility] [place] [address] [place] [address] PCP - Ophthalmology Ophthalmology 02/11/13 Denise Woodson Ra, APRN FIRE EQUIPMENT REPAIRER INSPECTOR [address] [facility]USTOS[address] [place] [address] PCP - General Family Practice 09/21/20 Denise Woodson Ra, APRN FIRE EQUIPMENT REPAIRER INSPECTOR [address] [address]ULI[address] [place] [address] Assigned PCP 07/17/20 Usha Simon APRN FIRE EQUIPMENT REPAIRER INSPECTOR [address] [facility], [place] [address] Nurse Practitioner Neurological Surgery 01/24/24 Dangelo Salinas MD [address] [place] [address] Neurology 01/27/24 documented as of this encounter
--- OUTSIDE RECORDS SUMMARY | 2024-02-02 22:33 | XMS_ITS | Encounter Summary ---
Author Name Unknown Organization [facility] Address [address] [place] [id number] Care Team Providers Care Jewelry Appraiser Name Role Phone Winston Villatoro OD Unavailable [phone] Denise Woodson Ra, APRN [facility] Unavailable [phone] Denise Woodson Ra, APRN [facility] Primary Care Provid er Usha Simon APRN [facility] Unavailable [phone] Reason for Referral * Mental Health Outpatient (Routine: Next available opening) - Pending Review Specialty Diagnoses / Procedures Referred By Nila t Referred To Contact Behavioral Health Diagnoses Mild recurrent major depression (H24) Robin Sibley MD [address] [place] [address] Referral ID Status Reason Start Date Expiration Date V isits Requested Visits Authorized [id number] Pending Review 01/26/2024 01/25/2025 1 1 Question Answer Services: Assess/Evaluate for appropriate service (non-medication assessment) My Clinical Question Is: patient intersted in outpatient health psychology post rehab discharge Scheduling Instructions: [facility] will call you to coordinate your care as prescribed by your provider. If you don't hear from a patient support representative within 2 business days, please [...] plan with any benefit or coverage questions. [facility] will call you to coordinate your care as prescribed by your provider. If you don't hear from a patient support representative within 2 business days, please call . * Therapeutic Services (Routine) - Pending Review Specialty Diagnoses / Procedures Referred By Contac t Referred To Contact Diagnoses Cerebrovascular accident (CVA), unspecified mechanism (H) Danya You PA [address] [place] [id number] Referral ID Status Reason Start Date Expiration Date V isits Requested Visits Authorized [id number] Pending Review 01/24/2024 01/23/2025 1 1 Question Answer Course of Action: Evaluation and Treatment Speech Treatment Diagnosis: Cognitive Deficits Specialty Services: Per Associated Diagnosis Scheduling Instructions: [facility] will call you to coordinate your care as prescribed by your provider. If you don't hear from a patient support representative within 2 business days, please call . Comments Please be aware that coverage of these services is subject to the terms and limitations of your health insurance plan. Call member services at your health plan with any benefit or coverage questions. [facility] will call you to coordinate your care as prescribed by your provider. If you don't hear from a patient support representative within 2 business days, please call . * Occupational Therapy (Routine) - Pending Review Specialty Diagnoses / Procedures Referred By Contac t Referred To Contact Diagnoses Cerebrovascular accident (CVA), unspecified mechanism (H) Danya You PA [address] [place] [address] Referral ID Status Reason Start Date Expiration Date V isits Requested Visits Authorized [id number] Pending Review 01/24/2024 01/23/2025 1 1 Question Answer Course of Action: Evaluation and Treatment Specialty Services: Per Associated Diagnosis Scheduling Instructions: [facility] will call you to coordinate your care as prescribed by your provider. If you don't hear from a patient support representative within 2 business days, please call . Comments Please be aware that coverage of these services is subject to the terms and limitations of your health insurance plan. Call member services at your health plan with any benefit or coverage questions. [facility] will call you to coordinate your care as prescribed by your provider. If you don't hear from a patient support representative within 2 business days, please call . * Rehab Therapy Integrated Services (Routine) - Authorized Specialty Diagnoses / Procedures Referred By Nila shah Referred To Contact Diagnoses Cerebrovascular accident (CVA), unspecified mechanism (H) [address] [address] Referral ID Status Reason Start Date Expiration Date V isits Requested Visits Authorized [id number] Authorized 09/16/2023 09/15/2024 365 365 Question Answer Course of Action: Evaluation and Treatment Specialty Services: Per Associated Diagnosis Scheduling Instructions: [facility] will call you to coordinate your care as prescribed by your provider. If you don't hear from a patient support representative within 2 business days, please call . Comments Please be aware that coverage of these services is subject to the terms and limitations of your health insurance plan. Call member services at your health plan with any benefit or coverage questions. [facility] will call you to coordinate your care as prescribed by your provider. If you don't hear from a patient support representative within 2 business days, please call . Reason for Visit * Auth/Cert (Routine) Specialty Diagnoses / Procedures Referred By Nila shah Referred To Contact Rehabilitation Diagnoses 01.2 Right body, left brain stroke, multiple acute ischemic infarcts in the frontal and parietal lobes, left supramarginal gyrus following angiogram [facility] [address] [address] Referral ID Status Reason Start Date Expiration Date Visits Re quested Visits Authorized [id number] 1 1 Encounter Details Date Type Department Care Team (Latest Contact Info) Description 01/22/2024 2:38 PM CDT - 01/26/2024 12:31 PM CDT Hospital Encounter [address] [address] Parminder Del Angel MD [address] [place], [place] [id number] Cerebrovascular accident (CVA), unspecified mechanism (H) (Primary [...] from the original note were not included. [facility] Acute Rehabilitation Unit Discharge summary Date [...] by post-stroke seizures, admitted on 01/17/2024 at [facility] for acute inpatient rehabilitation. Discharged in setting of acute mental status change, concern for seizure, workup felt not consistent with seizure, episodes felt related to fatigue/stress. Functionally making progress with ongoing strength, balance, activity tolerance, and cognition below baseline, plan fo rhome with outpatient PT/OT/TREE TRIMMING LINE TECHNICIAN. 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 Recommend transportation A. Vision/Cognition: Glasses. Noted undershoot with R saccades and 1x break in horizontal pursuits; endorses diplopia with convergence ~ 3 inch distance and at far distance. Concern for potential peripheral vision issues impairing anchoring/spatial awareness in environment. Cognitively, pt self-reports identifies as neurodivergent; slower processing, distractible in noisy environments. TREE TRIMMING LINE TECHNICIAN: Current Status: Hearing: WFL Vision: Glasses- reporting [...] # Headaches, frontal Patient was seen by [facility] interventional neuroradiology for diagnostic catheter cerebral angiogram for left sided pulsatile tinnitus 01/09/24. After the procedure, patient had a severe headache, episode of emesis, new onset right arm weakness and numbness, was found to have multiple acute ischemic infarcts of the frontal lobes, parietal lobes and left supramarginal gyrus, neurology believed embolic in nature, likely procedural complication - continue PT, OT, TREE TRIMMING LINE TECHNICIAN as outpatient - Secondary stroke ppx: - [...] but would like to transition cares to [facility]. 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 - Hydroxyzine PRN, psychology follow up as outpatient (ordered) # History of ASD, repaired: Per chart, has Amplatz septal occluder device in place. # Insomnia - BLAST FURNACE HELPER Atarax 50 mg at bedtime - BLAST FURNACE HELPER Trazodone 100 mg at bedtime # Constipation - BLAST FURNACE HELPER Magnesium oxide 400 mg at bedtime - PRN Senna # Seasonal allergies - Zyrtec 10 mg qday # Sleep - Trazodone 100 mg at bedtime - evaluate need during rehab stay # Asthma - BLAST FURNACE HELPER Breo Ellipta qday DISCHARGE MEDICATIONS Current Discharge [...] FOLLOW UP Discharge Procedure Orders Physical Therapy Stock [facility] Referral Standing Status: Future Referral Priority: Routine Referral Type: Rehab Therapy Physical Therapy Number of Visits Requested: 1 Occupational Therapy Stock Turner Referral Standing Status: Future Referral Priority: Routine Referral Type: Occupational Therapy Number of Visits Requested: 1 Speech Therapy Stock Turner Referral Standing Status: Future Referral Priority: Routine Referral Type: Therapeutic Services Number of Visits Requested: 1 Adult Mental Health Stock Turner Referral Standing Status: Future Referral Priority: Routine: [...] Answer Comments Is discharge order? Yes Adult [facility] Follow-up and recommended labs and tests Order Comments: Follow up with primary care provider, Denise Woodson, within 7 days for hospital follow- up. Follow up stroke with stroke neurology Follow up dural av fistula with neuro interventional Appointments on [place] and/or [facility] (with [facility] or [facility] provider or service). Call [phone] if you haven't heard regarding these appointments [...] Dr. Woodson on 02/06/2024 at 8:10AM. Address [address] [address] [place] neurology- follow up stroke & seizure You will be contacted to schedule follow up. 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 Address [address] [facility] [place] [employer] [email or web address] Resource Facilitation is a free, two-year telephone support program provides education and connection to supports and services to assist people throughout [place] in navigating life after brain injury. Participants [...] Coaching on navigation the federal, state and [facility] health and disability service system with additional support and conference calls as needed Help finding appropriate legal support for appealing and navigating Social Security Disability, providing advocacy on the individual???s behalf as needed and connecting with cost effective alternatives to systems requirements planner as needed Supporting parents/students with how to [...] can help, just ask. Call us at [phone] or [phone]. documented in this encounter Medications at Time [...] by mouth daily levETIRAcetam (KEPPRA) 750 MG tabletIndications:Hist ory of [...] by mouth at bedtime 30 tablet 01/24/2024 traZODone (DESYREL) 50 MG tabletIndications:Inso mnia, unspecified type Take 2 tablets (100 mg) by mouth At Bedtime 180 tablet 3 07/27/2021 calcium carbonate (TUMS) 500 MG chewable tabletIndications:Naus ea Take 1 tablet (500 mg) by mouth 4 times daily as needed for heartburn 01/22/2024 hydrOXYzine HCl (ATARAX) 50 MG tabletIndications:Gene ralized anxiety disorder Take 0.5-1 tablets (25-50 mg) by mouth every 6 hours as needed for anxiety or other (sleep) 60 tablet 01/24/2024 senna-docusate (SENOKOT-S/PERICOLACE) 8.6-50 MG tabletIndications:Othe r constipation Take 2 tablets by mouth 2 times daily as needed for constipation 01/22/2024 documented as of this encounter Progress Notes * Stephanie Paula OTR - 01/26/2024 11:42 AM CDT Occupational Therapy Discharge Summary Reason for therapy discharge: Discharged to home with outpatient therapy. Progress towards therapy goal(s). See goals on Care Plan in [facility] electronic health record for goal details. Goals [...] by post-stroke seizures, admitted on 01/17/2024 at [facility] for acute inpatient rehabilitation. Discharge Plan: Home alone daytime, IADL A evening family; OP OT Precautions: fall, vision, RUE sensory deficit Current Status: ADLs: Mobility: Ind Grooming: Ind Dressing: Ind Bathing: Mod I with ETB and grab bars Toileting: Ind with grab bar IADLs: Ind with pet care and light kitchen tasks. 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 Recommend transportation A. Vision/Cognition: Glasses. Noted undershoot [...] goal(s). See goals on Care Plan in [facility] electronic health record for goal details. Goals partially met. Barriers to achieving goals: discharge from facility. Therapy recommendation(s): Continued therapy is recommended. Rationale/Recommendations: OP TREE TRIMMING LINE TECHNICIAN for high level cognition, return to work. [...] of fatigue on cognition, recommendation for ongoing TREE TRIMMING LINE TECHNICIAN for high level cognition as pt wanting [...] Paula OTR - 01/25/2024 3:26 PM CDT Python Django Developer Post-Acute Rehab OT: Discharge Plan: home alone daytime, IADL A evening family; OP OT Precautions: fall, vision, RUE sensory deficit Current Status: ADLs: Mobility: Ind in room Grooming: Ind Dressing: Ind Bathing: Mod I with ETB and grab bars Toileting: Ind with grab bar IADLs: Ind with pet care and light kitchen tasks. 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 Recommend transportation A. Vision/Cognition: Glasses. Noted undershoot [...] from the original note were not included. [facility] Acute Rehabilitation Unit Daily progress note [...] by post-stroke seizures, admitted on 01/17/2024 at [facility] for acute inpatient rehabilitation. Discharged in setting of acute mental status change, concern for seizure, workup felt not consistent with seizure, episodes felt related to fatigue/stress. Functionally making progress with ongoing strength, balance, activity tolerance, and cognition below baseline, Patient will require and benefit from PT, OT, and TREE TRIMMING LINE TECHNICIAN services as well as all of the ancillaryservices offered in the inpatient rehab setting. 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 After the procedure, patient had a severe headache, episode of emesis, new onset right arm weakness and numbness, was found to have multiple acute ischemic infarcts of the frontal lobes, parietal lobes and left supramarginal gyrus, neurology believed embolic in nature, likely procedural complication - continue PT, OT, TREE TRIMMING LINE TECHNICIAN as outpatient - Secondary stroke ppx: - [...] but would like to transition cares to [facility]. 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 - Hydroxyzine PRN -monitor mood # History of ASD, repaired: Per chart, has Amplatz septal occluder device in place. # Insomnia - BLAST FURNACE HELPER Atarax 50 mg at bedtime - BLAST FURNACE HELPER Trazodone 100 mg at bedtime # Constipation - BLAST FURNACE HELPER Magnesium oxide 400 mg at bedtime - PRN Senna # Seasonal allergies - Zyrtec 10 mg qday # Sleep - Trazodone 100 mg at bedtime - evaluate need during rehab stay # Asthma - BLAST FURNACE HELPER Breo Ellipta qday # Bowel: States current [...] this Saturday, 01/25, with OP therapies. 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 Recommend transportation A. Vision/Cognition: Glasses. Noted undershoot [...] from the original note were not included. [facility] Acute Rehabilitation Unit Daily progress note [...] by post-stroke seizures, admitted on 01/17/2024 at [facility] for acute inpatient rehabilitation. Discharged in setting of acute mental status change, concern for seizure, workup felt not consistent with seizure, episodes felt related to fatigue/stress. Functionally making progress with ongoing strength, balance, activity tolerance, and cognition below baseline, Patient will require and benefit from PT, OT, and TREE TRIMMING LINE TECHNICIAN services as well as all of the ancillaryservices offered in the inpatient rehab setting. # Cerebral infarct of the frontal lobes, parietal lobes, left supramarginal gyrus, embolic in nature, likely procedural complication # Right sided numbness, weakness # Headaches, frontal Patient was seen by [facility] interventional neuroradiology for diagnostic catheter cerebral angiogram for left sided pulsatile tinnitus 01/09/24. After the procedure, patient had a severe headache, episode of emesis, new onset right arm weakness and numbness, was found to have multiple acute ischemic infarcts of the frontal lobes, parietal lobes and left supramarginal gyrus, neurology believed embolic in nature, likely procedural complication - continue PT, OT, TREE TRIMMING LINE TECHNICIAN as outpatient - Secondary stroke ppx: - [...] but would like to transition cares to [facility]. 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 - Hydroxyzine PRN -monitor mood # History of ASD, repaired: Per chart, has Amplatz septal occluder device in place. # Insomnia - BLAST FURNACE HELPER Atarax 50 mg at bedtime - BLAST FURNACE HELPER Trazodone 100 mg at bedtime # Constipation - BLAST FURNACE HELPER Magnesium oxide 400 mg at bedtime - PRN Senna # Seasonal allergies - Zyrtec 10 mg qday # Sleep - Trazodone 100 mg at bedtime - evaluate need during rehab stay # Asthma - BLAST FURNACE HELPER Breo Ellipta qday # Bowel: States current [...] Alvarado RN - 01/24/2024 6:49 AM CDT [id number] BP 123/47 (BP Location: Right arm) Pulse [...] by post-stroke seizures, admitted on 01/17/2024 at [facility] for acute inpatient rehabilitation. Discharged in [...] Strength Comments Mild impairments in R UE pilot captain per OT. No overt asymmetries in functional [...] Evaluation Time PT Eval, Moderate Complexity Minutes (31405) 45 Physical Therapy Goals PT Frequency 6x/week Interventions Interventions Quick Adds Therapeutic Activity Therapeutic Activity Therapeutic Activities: dynamic activities to improve functional performance Minutes (53663) 15 Treatment Detail/Skilled Intervention Patient education on post-stroke rehab timeline, factors influencing dynamic balance (vision, sensation, reaction time, fatigue etc). Pt eager to amb w/o FWW, endorses also fearful without. Progressed from in room amb a/ FWW Imtiaz to mobilizing with VENEER PRESS OPERATOR > CGAw/o AD. 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 Recommend transportation A. Vision/Cognition: Glasses. Noted undershoot [...] toilets. Tub/shower combo upstairs with high height street light servicer tub. 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 Post-Acute Assessment Only Post-Acute Functional Assessment See [...] presented for a planned catheter angiogram at [facility] for left sided pulsatile tinnitus, following procedure found to have multiple acute ischemic infarcts of the frontal lobes, parietal lobes and left supramarginal gyrus after procedure with associated right sided weakness and numbness, likely embolic in nature secondary to procedure complication, complicated by post-stroke seizures, admitted on 01/17/2024 at [facility] for acute inpatient rehabilitation. Discharged in setting of acute mental status change, concern for seizure, workup felt not consistent with seizure, episodes felt related to fatigue/stress. Functionally making progress with ongoing strength, balance, activity tolerance, and cognition below baseline, Patient will require and benefit from PT, OT, and TREE TRIMMING LINE TECHNICIAN services as well as all of the ancillary services offeredin the inpatient rehab setting. 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 R [...] Evaluation Time OT Eval, Moderate Complexity Minutes (07100) 20 OT Goals Therapy Frequency (OT) 6 [...] Management Self-Care/Home Mgmt/ADL, Compensatory, Meal Prep Minutes (70624) 40 Symptoms Noted During/After Treatment (Meal Preparation/Planning [...] Appointment Info Signing Clinician's Name / Credentials (TREE TRIMMING LINE TECHNICIAN) Suraj Rivera MS, CCC-TREE TRIMMING LINE TECHNICIAN General Information Onset of Illness/Injury or Date of Surgery 01/09/24 Referring Physician Danya You PA Pertinent History of Current Problem Per H&P: Patient is 48 year old female with past medical history of Lizy-Danlos syndrome, mild persistent asthma, anxiety and depression, fibromyalgia who presented for a planned catheter angiogram at [facility] for evaluation of left sided [...] MRI 01/19 with low suspicion for seizure. [place] secondary to fatigue/ over exertion. If recurrent episodes, as described, occur call on-call neuro, not to be treated like seizure, note tonic-clonic activity should be treated with lorazepam. TREE TRIMMING LINE TECHNICIAN consult received for evaluation and treatment as indicated. General Observations Prior ARU admission pt participated cognitive (RBANS A) and dysphagia evaluations, no ongoing interventions recommended for dysphagia as pt demo'd WNL oral and pharyngeal swallowfunction with regular solids/thin liquids (0). Pt did not receive acute TREE TRIMMING LINE TECHNICIAN services during re-hospitalization. Plan to re-evaluate cognitive [...] Impression Criteria for Skilled Therapeutic Interventions Met (TREE TRIMMING LINE TECHNICIAN Eval) Yes, treatment indicated TREE TRIMMING LINE TECHNICIAN Diagnosis Mild cognitive impairment Activity Limitations Related to Problem List (TREE TRIMMING LINE TECHNICIAN) Cognitive function, endurance for return to work. Risks & Benefits of therapy have been explained evaluation/treatment results reviewed;care plan/treatment goals reviewed;participants voiced agreement with care plan;participants included;patient Clinical Impression Comments TREE TRIMMING LINE TECHNICIAN: Motor speech, language intact. RBANS form B administered and interpreted. Pt with improvement in overall score, delayed memory and attention domains. Pt with lower score in visuospatial domain, reported vision blurrier than prior administration. Skilled TREE TRIMMING LINE TECHNICIAN services indicated to train in cognitive strategies, instruct in therapeutic activities to promote cognitive function. TREE TRIMMING LINE TECHNICIAN Total Evaluation Time Cognitive Performance Testing Minutes, per hour - includes time for administering test, interp results & prep report (54603) 60 TREE TRIMMING LINE TECHNICIAN Goals Therapy Frequency (TREE TRIMMING LINE TECHNICIAN Eval) 6 times/week TREE TRIMMING LINE TECHNICIAN Predicted Duration/Target Date for Goal Attainment 01/30/24 TREE TRIMMING LINE TECHNICIAN Goals TREE TRIMMING LINE TECHNICIAN Goal 1;TREE TRIMMING LINE TECHNICIAN Goal 2 TREE TRIMMING LINE TECHNICIAN: Goal 1 Patient will complete high level attention (alternating, divided) tasks with 90% or greater independent accuracy. TREE TRIMMING LINE TECHNICIAN: Goal 2 Patient will complete high complexity reasoning/problem solving witn 90% or greater independent accuracy. TREE TRIMMING LINE TECHNICIAN Discharge Planning TREE TRIMMING LINE TECHNICIAN Plan TREE TRIMMING LINE TECHNICIAN: ELBERT as treatment. Intro attention strategies. Tx high level attention, reasoning/problem solving. Post Acute Settings Only What unit is patient on? Acute Rehab TREE TRIMMING LINE TECHNICIAN - Acute Rehab Center Time Individual Time (minutes) - TREE TRIMMING LINE TECHNICIAN 60 Group Time (minutes) - TREE TRIMMING LINE TECHNICIAN 0 Concurrent Time (minutes) - TREE TRIMMING LINE TECHNICIAN 0 Co-Treatment Time (minutes) - TREE TRIMMING LINE TECHNICIAN 0 ARC Total Session Time (minutes) - TREE TRIMMING LINE TECHNICIAN 60 ARC Daily Total Session Time TREE TRIMMING LINE TECHNICIAN ARC Daily Total Session Time 60 ARC Daily Rehab Total Minutes 60 Repeatable Battery for the Assessment of Neuropsychological Status (RBANS) FORM Immediate Memory Visuospatial/ Constructional Language Attention Delayed Memory Total Scale Index Score 85 96 91 88 103 89 Percentile Rank 16 39 27 21 58 23 TREE TRIMMING LINE TECHNICIAN: Pt seen for administration of RBANS. Results are based on a mean of 100 and a standard deviation of +/- 15. Interpretation: Please see above. Face to Face Administration: 45 Scoring/Interpretation: 15 Total Time: 60 * Danya You PA - 01/23/2024 8:52 AM CDT Images from the original note were not included. [facility] Acute Rehabilitation Unit Daily progress note [...] by post-stroke seizures, admitted on 01/17/2024 at [facility] for acute inpatient rehabilitation. Discharged in setting of acute mental status change, concern for seizure, workup felt not consistent with seizure, episodes felt related to fatigue/stress. Functionally making progress with ongoing strength, balance, activity tolerance, and cognition below baseline, Patient will require and benefit from PT, OT, and TREE TRIMMING LINE TECHNICIAN services as well as all of the ancillaryservices offered in the inpatient rehab setting. 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 After the procedure, patient had a severe headache, episode of emesis, new onset right arm weakness and numbness, was found to have multiple acute ischemic infarcts of the frontal lobes, parietal lobes and left supramarginal gyrus, neurology believed embolic in nature, likely procedural complication - continue PT, OT, TREE TRIMMING LINE TECHNICIAN - Secondary stroke ppx: - BP: Goal [...] but would like to transition cares to [facility]. 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 - Hydroxyzine PRN -monitor mood # History of ASD, repaired: Per chart, has Amplatz septal occluder device in place. # Insomnia - BLAST FURNACE HELPER Atarax 50 mg at bedtime - BLAST FURNACE HELPER Trazodone 100 mg at bedtime # Asthma - BLAST FURNACE HELPER Breo Ellipta qday # Constipation - BLAST FURNACE HELPER Magnesium oxide 400 mg at bedtime - PRN Senna # Seasonal allergies - Zyrtec 10 mg qday # Sleep - Trazodone 100 mg at bedtime - evaluate need during rehab stay # Asthma - BLAST FURNACE HELPER Breo Ellipta qday # Bowel: States current [...] Alcon Zamora as part of a shared INSURANCE SALES AGENT/PA visit. I personally reviewed the vital signs, [...] from the original note were not included. [facility] Acute Rehabilitation Unit Admission History and Physical CHIEF COMPLAINT stroke HISTORY OF PRESENT ILLNESS Alcon Zamora is a 48 year old female with past medical history of Lizy-Danlos syndrome, mild persistent asthma, anxiety and depression, fibromyalgia who presented for a planned catheter angiogram at [facility] for evaluation of left sided [...] MRI 01/19 with low suspicion for seizure. [place] secondary to fatigue/ over exertion. If recurrent [...] PAST MEDICAL HISTORY Reviewed and updated in [employer]. Past Medical History: Diagnosis Date Acute posthemorrhagic [...] asthma SURGICAL HISTORY Reviewed and updated in [employer]. Past Surgical History: Procedure Laterality Date C GENERAL STUDIES PROGRAM CHAIR PROCEDURE DATE: vag del. C GENERAL STUDIES PROGRAM CHAIR PROCEDURE DATE: 2000 tubal ligation C GENERAL STUDIES PROGRAM CHAIR PROCEDURE DATE: 1994 D&C CARDIAC SURGERY 06/2006 heart defect repair ESOPHAGOSCOPY, GASTROSCOPY, DUODENOSCOPY (EGD), COMBINED N/A 02/08/2021 Procedure: ESOPHAGOGASTRODUODENOSCOPY (EGD); Surgeon: Tuan Miller MD; Location: GI GI SURGERY 09/2020 gallbladder removed HC KNEE SCOPE,MED/LAT MENISECTOMY 08/04/13 LT HEART CATH, CLOSURE ATRIAL SEPTAL DEFECT 06/20/06 amplatzer septal occluder- serial #[id number] RW GENERAL STUDIES PROGRAM CHAIR (ABSTRACTED) pneumonia several times SURGICAL PATHOLOGY EXAM 02/2012 excision of lipoma on chest wall ZZC VAGINAL HYSTERECTOMY 01/30/06 SOCIAL HISTORY Reviewed and updated in [facility]. 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 No Social History Narrative Not on file Social Determinants of Health Financial Resource Strain: Low Risk (01/10/2023) Received from [facility] Overall Financial Resource Strain (CARDIA) Difficulty of Paying Living Expenses: Not hard at all Food Insecurity: No Food Insecurity (01/10/2023) Received from [facility] Hunger Vital Sign Worried About Running Out of Food in the Last Year: Never true Ran Out of Food in the Last Year: Never true Transportation Needs: No Transportation Needs (01/10/2023) Received from [facility] PRAPARE - Transportation Lack of Transportation (Medical): No Lack of Transportation (Non-Medical): No Physical Activity: Sufficiently Active (01/10/2023) Received from [facility] Exercise Vital Sign Days of Exercise per Week: 5 days Minutes of Exercise per Session: 30 min Stress: Stress Concern Present (01/10/2023) Received from [facility] Georgian Pierron of Occupational Health - Occupational Stress Questionnaire Feeling of Stress : Rather much Social Connections: Socially Isolated (01/10/2023) Received from [facility] Social Connection and Isolation Panel [NHANES] Frequency of Communication with Friends and Family: Once a week Frequency of Social Gatherings with Friends and Family: Once a week Attends Jew Services: Never Active Member of Clubs or Organizations: No Attends Club or Organization Meetings: Never Marital Status: Interpersonal Safety: Not At Risk (01/10/2023) Received from [facility] Humiliation, Afraid, Rape, and Kick questionnaire Fear of Current or Ex-Partner: No Emotionally Abused: No Physically Abused: No Sexually Abused: No Housing Stability: Low Risk (01/10/2023) [facility] Housing Stability Vital Sign Unable to Pay [...] by post-stroke seizures, admitted on 01/17/2024 at [facility] for acute inpatient rehabilitation. Discharged in setting of acute mental status change, concern for seizure, workup felt not consistent with seizure, episodes felt related to fatigue/stress. Functionally making progress with ongoing strength, balance, activity tolerance, and cognition below baseline, Patient will require and benefit from PT, OT, and TREE TRIMMING LINE TECHNICIAN services as well as all of the ancillaryservices offered in the inpatient rehab setting. Admission to acute inpatient rehab Right body, left brain stroke, multiple acute ischemic infarcts in the frontal and parietal lobes, left supramarginal gyrus following angiogram Impairment group code: : 01.2 PT, OT and TREE TRIMMING LINE TECHNICIAN 60 minutes of each on a daily basis up to 6 days per week, in addition to rehab nursing and close management of package dyer. 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 After the procedure, patient had a severe headache, episode of emesis, new onset right arm weakness and numbness, was found to have multiple acute ischemic infarcts of the frontal lobes, parietal lobes and left supramarginal gyrus, neurology believed embolic in nature, likely procedural complication - continue PT, OT, TREE TRIMMING LINE TECHNICIAN - Secondary stroke ppx: - BP: Goal [...] but would like to transition cares to [facility]. 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 - Hydroxyzine PRN -monitor mood # History of ASD, repaired: Per chart, has Amplatz septal occluder device in place. # Insomnia - BLAST FURNACE HELPER Atarax 50 mg at bedtime - BLAST FURNACE HELPER Trazodone 100 mg at bedtime # Asthma - BLAST FURNACE HELPER Breo Ellipta qday # Constipation - BLAST FURNACE HELPER Magnesium oxide 400 mg at bedtime - PRN Senna # Seasonal allergies - Zyrtec 10 mg qday # Sleep - Trazodone 100 mg at bedtime - evaluate need during rehab stay # Asthma - BLAST FURNACE HELPER Breo Ellipta qday # Bowel: States current [...] Alcon Zamora as part of a shared INSURANCE SALES AGENT/PA visit. I personally reviewed the vital signs, [...] this encounter Consult Notes * Bárbara Bedolla, [facility] - 01/22/2024 2:46 PM CDT Pt was initially admitted to [facility] ARU on 01/17/24 and SW assessment was completed on Saturday01/19/24 by Leanna LI. Assessment copied below. Chart review completed. Pt work ppwk completed and sent to her employer prior to return from ARU. No immediate SW needs. SW will remain available and continue to follow during ARU stay. MARA Rodriguez [facility] Acute Inpatient Rehab Gas Producer PH: [phone] & Email: [email or web address] Social Work: Initial Assessment with Discharge [...] Emilie, in split level home , [address] home with rail in front door, no [...] a 48 yr old female, , , latvian speaking, no affiliated confucianism or consideration Physical Health Reason for admission: [...] [facility] for left sided pulsatile tinnitus on 01/09/24, found to have multiple acute ischemic infarcts of the frontal lobes, parietal lobes and left supramarginal gyrus after procedure with associated right sided weakness and numbness, likely embolic in nature secondary to procedure complication, complicated by post-stroke seizures, now being admitted on 01/17/2024 at [facility] for acute inpatient rehabilitation. Provider Information Primary Care Physician: Denise Woodson [phone] PAULA CERON [facility] [address] [facility] [facility] will schedule PCP apt at discharge. Senior Consulting Manager: EMILY Mental Health/Chemical Dependency: Diagnosis: Pt reported [...] Emilie (), Silas (son), Erica (daughter) in [place], Kenji (son) in [place]. Pt has 2 granddaughters. Other support available: emily Community Resources Current in home services: Pt denies current home services. 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 Income Source: Pt work and also works Education: not discussed Financial Concerns: Pt reported trying to figure out short term disability and FMLA. Dual householdand need to figure out finances. Pt will talk to work on Saturday for FMLA paperwork. PT reported short term disability won't start until 30 days. Informed Pt to get FMLA paperwork and give it directlyto Doctor. Insurance: [employer] OPEN ACCESS Discharge Plan Patient and family discharge goal: TBD, pending progress. Goal is to go home. Provided Education on discharge plan: Evaluations and discharge recommendations pending. Patient agreeable to discharge plan: Pending further discussion. Evaluations and discharge recommendations pending. Provided education and attained signature for Medicare IM and IRF Patient Rights and Privacy Information provided to patient : NA Provided patient with [facility] [place] Resources: Provided booklet and [facility]. Barriers to discharge: none at the moment Discharge Recommendations Disposition: See above Transportation Needs: Additional comments Discharge TBD, ELOS +/- 14 days . Evals and discharge needs pending. SW will remain available and continue to follow as needs arise. Pt would like information on how to transfer her care to [place]. Doesn't want to go back to [place]. VIDHYA Pain Assessment Pain Effect on Sleep [...] Rarely or not at all MARA Cortez [facility] Gas Producer Social Work [address] [place] [id number] (PH [phone] or [phone]) documented in this encounter Miscellaneous Notes * [...] goal(s). See goals on Care Plan in [facility] electronic health record for goal details. Goals [...] at work. ELOS 5 days . Communication/Cognition/Swallow: TREE TRIMMING LINE TECHNICIAN: Motor speech, language intact. RBANS form B administered and interpreted. Pt with improvement in overall score, delayed memory and attention domains. Pt with lower score in visuospatial domain, reported vision blurrier than prior administration. Skilled TREE TRIMMING LINE TECHNICIAN services indicated to train in cognitive strategies, instruct in therapeutic activities to promote cognitive function. Intensity of therapy: PT 60 minutes, 6x/week, for 7 days OT 60 minutes, 6 times/week, for 7 days TREE TRIMMING LINE TECHNICIAN 60 minutes, 6 times/week, for 7 days Medical Prognosis: Good prognosis to achieve medical stability Physician summary statement: Patient has made reasonable gains in a short period of time while on rehab and is anticipated to be able to discharge to home with modified independence. Discharge destination: prior home Discharge rehabilitation needs: outpatient, PT, OT, and TREE TRIMMING LINE TECHNICIAN Estimated length of stay: 7 days Rehabilitation [...] Rivera SLP - 01/25/2024 12:19 PM CDT Python Django Developer Post-Acute Rehab TREE TRIMMING LINE TECHNICIAN: Discharge Plan: home with , ongoing OP TREE TRIMMING LINE TECHNICIAN Precautions: seizure Current Status: Hearing: WFL Vision: [...] to Discharge (Family Training, etc): None from TREE TRIMMING LINE TECHNICIAN perspective * Pharmacy-Admission Medication History - Isael Cevallos RPH - 01/25/2024 10:01 AM CDT Please see Admission Medication History completed on 01/20/24 under previous encounter at [facility] for information regarding prior to admission medications. Isael Cevallos PGY1 Optical Element Coater * Plan of Care - Danya Ricks PT - 01/25/2024 9:27 AM CDT Python Django Developer Post-Acute Rehab PT: Discharge Plan: home with [...] Rivera SLP - 01/24/2024 11:15 AM CDT Python Django Developer Post-Acute Rehab TREE TRIMMING LINE TECHNICIAN: Discharge Plan: home with , ongoing OP TREE TRIMMING LINE TECHNICIAN Precautions: seizure Current Status: Hearing: WFL Vision: [...] with 90% independent accuracy,required moderat cues from TREE TRIMMING LINE TECHNICIAN for pill placement first opportunity (1 tablet 4x a day). P.M.: Instructed pt in higher level cognitive ask with alternating attention, visual scanning and working memory components. Pt demo'd increased accuracy, speed with task with each opportunity; verbalized being very pleased at her performancfe. Other Barriers to Discharge (Family Training, etc): None from TREE TRIMMING LINE TECHNICIAN perspective * Plan of Care - Danya Ricks PT - 01/24/2024 8:09 AM CDT Python Django Developer Post-Acute Rehab PT: Discharge Plan: home with [...] Ricks PT - 01/23/2024 4:19 PM CDT Python Django Developer Post-Acute Rehab PT: Discharge Plan: home with [...] * Pharmacy-Medication Regimen Review - Maryse Martin [facility] - 01/23/2024 1:11 PM CDT Pharmacy Medication [...] current outpatient prescriptions on file. Maryse Martin, [facility] PharmD,BCPS January 23, 2024 Associated attestation - Parminder Del Angel MD - 01/23/2024 6:37 PM CDT I have reviewed your recommendations and will implement changes and/or monitor as suggested. Thank you for your help. * Plan of Care - Suraj Rivera, JUAN - 01/23/2024 12:18 PM CDT Python Django Developer Post-Acute Rehab TREE TRIMMING LINE TECHNICIAN: Discharge Plan: home with , ongoing TREE TRIMMING LINE TECHNICIAN Precautions: seizure Current Status: Hearing: WFL Vision: [...] reported vision blurrier than prior administration. Skilled TREE TRIMMING LINE TECHNICIAN services indicated to train in cognitive strategies, instruct in therapeutic activities to promote cognitive function. Other Barriers to Discharge (Family Training, etc): None from TREE TRIMMING LINE TECHNICIAN perspective * Plan of Care - Escobar [...] Ricks PT, Nicolás Kauffman OT, Suraj Rivera TREE TRIMMING LINE TECHNICIAN, Bárbara Bedolla [facility], Tamar Jeffery RD, Sameer Boothe [...] in a split-level home. Active and indep BLAST FURNACE HELPER. Depression and anxiety. No substance abuse reported. [...] evaluation. PT Goals- pending therapy evaluations today TREE TRIMMING LINE TECHNICIAN Goals- to be established this day Patient [...] to acute rehab after being transferred to [facility] for seizure work up. Transferred with CGA from w/c to bed. Given reorientation to ARU. PT did eval and gave ok for pt to be mod I in room with walker. Able to manage toileting independently after that. * Plan of Care - Jaleesa Ashford, PT - 01/22/2024 4:56 PM CDT Python Django Developer Post-Acute Rehab PT: Discharge Plan: home with [...] multifocal stroke (01/12). She was recently at [facility] 01/16-01/18, then admitted to hospital 01/18-01/21 for [...] Visit [facility] [address] [phone] Denise Woodson Ra, INSURANCE SALES AGENT [facility] [address] [place] [address] Addis Rojas, PT [facility] [address] [place] [address] 02/04/2024 PRE VISIT [facility] [address] [phone] Raul Hoyos MD [address] [place] [id number] *-*INCOMING RECORDS*-* 02/04/2024 11:00 AM CDT Virtual Visit [facility] [address] [phone] Raul Hoyos MD [address] [place] [id number] 02/06/2024 8:30 AM CDT Office Visit [facility] [address] [place] [phone] Denise Woodson Ra, BARRERA HUBBARD [address] [place] [address] 02/07/2024 2:00 PM CDT Therapy Visit [facility] [address] [place] [phone] Danya You, PA [address] [place] [address] 548704 Charis Chacon SLP [facility] [address] [place], [place] [id number] 02/14/2024 12:45 PM CDT Therapy Visit [facility] [address] [place] [phone] Danya You, PA [address] [place] [address] 733004 Isabel Beaulieu, OTR [address] [address] 02/14/2024 2:00 PM CDT Therapy Visit [address] [phone] Danya You, PA [address] [place] [address] [phone] Charis Chacon SLP [facility] [address] [place], [place] 5[address] 02/14/2024 2:45 PM CDT Therapy Visit [facility] [address] [place] [phone] Danya You PA 2450 [facility] [address] [place] [address] Maria Eugenia Nguyen, PT [address] [place] [address] 02/17/2024 2:45 PM CDT Therapy Visit [facility] [address] [place] [phone] Danya You PA [address] [facility] [address] [address] Aliya Kim, TREE TRIMMING LINE TECHNICIAN [address] [address] 02/19/2024 3:00 PM CDT Therapy Visit [address] [phone] Danya You, PA [address] [address] Isabel Beaulieu, OTJah [address] [address] 02/26/2024 2:15 PM CDT Therapy Visit [address] [phone] Danya You, AMAIRANI [address] [address] Charis Chacon, JUAN [facility] [address] [place] [address] 02/26/2024 3:00 PM CDT Therapy Visit [facility] [address] [place] [phone] Danya You PA [address] [place] [address] Isabel Beaulieu, OTR [facility] [address] [place] [address] 02/27/2024 4:45 PM CDT Therapy Visit [address] [phone] Danya You, PA [address] [place], [place] [address] Vanessa Duggan, PT 03/05/2024 1:30 PM CDT Therapy Visit [address] [phone] Danya You, AMAIRANI [address] [facility] [address] [place] [address] Isabel Beaulieu OTR [address] [address] 03/05/2024 3:15 PM CDT Therapy Visit [address] [phone] Danya You PA 2450 [facility] [address] [place] [address] Charis Chacon, TREE TRIMMING LINE TECHNICIAN [facility] [address] [place] [address] 03/05/2024 4:15 PM CDT Therapy Visit [address] [phone] Danya You, AMAIRANI [address] [address] Delicia George, PT [address] [address] 03/11/2024 2:15 PM CDT Therapy Visit [address] [phone] Danya You, AMAIRANI [facility] [address] [address] Isabel Beaulieu, OTR [address] [address] 03/11/2024 3:00 PM CDT Therapy Visit [address] [phone] Danya You, PA [facility] [address] [address] Charis Chacon, JUAN [facility] [address] [place] [address] 03/11/2024 4:15 PM CDT Therapy Visit [address] [phone] Danya You, PA [facility] [address] [address] Delicia George, PT [facility] [address] [place] [address] 03/17/2024 1:30 PM CDT Therapy Visit [address] [phone] Danya You, PA [facility] [address] [address] Isabel Beaulieu, JAIMIE [address] [address] 03/17/2024 2:30 PM CDT Therapy Visit [address] [phone] Danya You, PA [facility] [address] [address] Charis Chacon, [facility] [address] [place] [address] 03/17/2024 4:00 PM CDT Therapy Visit [address] [phone] Danya You, PA [facility] [address] [address] Delicia George, PT [facility] [address] [place] [address] 03/23/2024 10:30 AM CDT Office Visit [address] [phone] Denise Woodson Ra, INSURANCE SALES AGENT [facility] [address] [facility] [place] [address] 03/26/2024 1:30 PM CDT Therapy Visit [address] [phone] Danya You, AMAIRANI [facility] [address] [address] Isabel Beaulieu, OTR [address] [address] 03/26/2024 2:30 PM CDT Therapy Visit [address] [phone] Danya You, AMAIRANI [facility] [address] [address] Charis Chacon, [facility] [address] [place] [address] 03/26/2024 3:30 PM CDT Therapy Visit [address] [phone] Danya You, PA [address] [place] [address] Delicia George, PT [facility] [address] [place] [address] 04/02/2024 2:15 PM CDT Therapy Visit [address] [phone] Danya You, PA [address] CHARLES [address] [place] [address] Isabel Beaulieu, OTR [facility] 150 [place] [address] 04/02/2024 3:15 PM CDT Therapy Visit [address] [phone] Danya You, PA [address] 725834 Charis Chacon, J[facility]AN [facility] [address] [place] [address] 04/02/2024 4:15 PM CDT Therapy Visit [address] 17987-209014 Danya You, PA [address] 203104 Delicia George, PT [facility] [address] [place] [address] 04/09/2024 3:15 PM CDT Therapy Visit [address] [phone] Danya You, PA [address] 505764 Charis Chacon, J[facility] [address] [place], [place] 399317 04/09/2024 4:15 PM CDT Therapy Visit [address] [phone] Danya You, PA [address] [facility] [address] [address] JIE [address] [address] Delicia George, PT [facility] [address] [place] [address] 04/15/2024 9:30 AM CDT Therapy Visit [address] [phone] Danya You, PA [address] [address] Danya Restrepo, TREE TRIMMING LINE TECHNICIAN 04/23/2024 2:30 PM CDT Therapy Visit [address] [phone] Danya You, PA [address] [place] [address] [address] Charis Chacon, [facility] [address] [place] [address] 06/23/2024 11:00 AM CDT Virtual Visit [facility] Mental Health & Addiction [facility] [address] [place] [phone] Kristin Vázquez, [facility] 6341 [facility] [place] [phone] 06/30/2024 2:00 PM CDT Virtual Visit [facility] Mental [facility] & [facility] [address] [place] [address] Kristin Vázquez, [facility] 6341 [facility] [place] [address] Scheduled Referrals Name Type Priority Associated Diagnoses Orde r Schedule Physical Therapy Stock Turner Referral Referral Routine Cerebrovascular accident (CVA), unspecified mechanism (H) Expected: 01/24/2024 (Approximate), Expires: 01/23/2025 Occupational Therapy Stock Turner Referral Referral Routine Cerebrovascular accident (CVA), unspecified mechanism (H) Expected: 01/24/2024 (Approximate), Expires: 01/23/2025 Speech Therapy Stock Turner Referral Referral Routine Cerebrovascular accident (CVA), unspecified mechanism (H) Expected: 01/24/2024 (Approximate), Expires: 01/23/2025 Adult Mental Health Stock Turner Referral Referral Routine: Next available opening Mild [...] RN) 0808 ($Patch/Med Applied - Provider: Jaye Maddox RN - Comment: neck)1999 (Patch/Med Removed - [...] documented as of this encounter Care Teams Jewelry Appraiser Relationship Specialty Start Date End Date Winston Villatoro OD [facility] [address] [facility] [address] [place] [address] PCP - Ophthalmology Ophthalmology 02/11/13 Denise Woodson Ra, INSURANCE SALES AGENT [facility] [address] [place] [address] PCP - General Family Practice 09/21/20 Denise Woodson Ra, APRN [facility] [address] PAUL[address] HUTSONPRIMO LYNCH [address] Assigned PCP 07/17/20 Usha Simon APRN [facility] 9 [facility] [place] [address] Nurse Practitioner Neurological Surgery 01/24/24 documented as of this encounter
--- OUTSIDE RECORDS SUMMARY | 2024-02-02 22:33 | XMS_ITS | Encounter Summary ---
Author Name Unknown Organization [place] Address [address] [place] [address]. [place] [address] Care Team Providers Care Forensic Photographer Name Role Phone Winston Villatoro OD Unavailable [phone] Denise Woodson Ra, APRN MARKETING STRATEGY LEAD Unavailable + [phone] Denise Woodson Ra, APRN MARKETING STRATEGY LEAD Primary Care Provid er Usha Simon BUTTONHOLE MAKER HAND MARKETING STRATEGY LEAD Unavailable +- [phone] Encounter Details Date Type Department Care Team [...] Description 02/03/2024 8:45 AM CDT Therapy Visit [facility] Rehabilitation Services [address] [address] Denise Woodson Ra, BUTTONHOLE MAKER HAND MARKETING STRATEGY LEAD [address] [place], [place] [phone] Addis Rojas, PT [facility] [address] [place] [address] 02/04/2024 PRE VISIT [facility] Neurology [address] 3rd [place] [phone] Raul Hoyos MD [address] [place] [address] *-*INCOMING RECORDS*-* 02/04/2024 11:00 AM CDT Virtual Visit [facility] Neurology [address] [address] Raul Hoyos MD [address] [place] [address] 446285 02/06/2024 8:30 AM CDT Office Visit [facility] [address] [place] [address] Denise Woodson Ra, BUTTONHOLE MAKER HAND [facility] [address] [place], [place] 8301368 02/07/2024 2:00 PM CDT Therapy Visit [facility] 150 [place] [phone] Danya You PA 2450 [facility] 213 [place] [address] Charis Chacon, [facility] [address] [place] [address] 02/14/2024 12:45 PM CDT Therapy Visit [facility] 150 [place] [phone] Danya You PA [address] [place] [address] Isabel Beaulieu, OTR [facility] 150 [place] [address] 02/14/2024 2:00 PM CDT Therapy Visit [address] [phone] Danya [place], PA 0590 [facility] 213 [place] [address] Charis Chacon, JUAN [facility] [address] [place] [address] 02/14/2024 2:45 PM CDT Therapy Visit [address] [phone] Danya You, PA 6210 [facility] 213 [place], [place] 414064 Maria Eugenia Nguyen, PT 2155 [place] [address] 02/17/2024 2:45 PM CDT Therapy Visit [address] [phone] Danya You PA 3270 [facility] 213 [place], [place] 023264 Aliya Kim, SHUT OFF WORKER [address] [facility] 200 [place] [address] 02/19/2024 3:00 PM CDT Therapy Visit [address] [place] [address] Danya You PA [address] [place] [address] Isabel Beaulieu, OTR [facility] 150 [facility] [address] 02/26/2024 2:15 PM CDT Therapy Visit [facility] Cobblescarrier clinice 150 [place] [address]14 Danya You, AMAIRANI [address] [place] [address] Charis Chacon, [facility] [address] [place] [address] 02/26/2024 3:00 PM CDT [facility] 150 [place] [address]613714 Danya You, AMAIRANI 2450 [facility] JIE SOTO [address] [place] [address] Isabel Beaulieu, OTR [facility] 150 [place] [address] 02/27/2024 4:45 PM CDT [facility] 150 [place] [address]14 Danya You, AMAIRANI 2450 [facility] JIE [address] 213 [place] [address] Vanessa Duggan, PT 03/05/2024 1:30 PM CDT Therapy Visit [facility] [place] 150 [place] [address] Danya You PA [address] [place] [address] 681824 Isabel Beaulieu, OTR [facility] COBLORELEIDIGNITY HE[facility] 150 [place] [address] 03/05/2024 3:15 PM CDT Therapy Visit [facility] clinice 150 [place] [phone] Danya You, AMAIRANI [address] 921704 Charis Chacon, [facility] [address] [place] [address] 03/05/2024 4:15 PM CDT Therapy [facility] 150 [place] [address] Danya You, AMAIRANI [address] [address] Delicia George, PT [facility] [address] [place] [address] 03/11/2024 2:15 PM CDT Therapy Visit [facility] Cobbles[facility] clinice 150 [place] [phone] Danya You, AMAIRANI [address] [address] Isabel Beaulieu, OTR [facility] 150 [place] [address] 03/11/2024 3:00 PM CDT Therapy Visit [address] 75704-069014 Danya You, PA 2450 [facility] JIE SOTO [address] [place] [address] Charis Chacon, J[facility]AN [facility] [address] [place] [address] 03/11/2024 4:15 PM CDT Therapy Visit [address] [phone] Danya You, PA [address] [address] Delicia George, PT [facility] [address] [place] [address] 03/17/2024 1:30 PM CDT Therapy Visit [address] 25253-565214 Danya You, PA [address] [address] Isabel Beaulieu OTR [address] [address] 03/17/2024 2:30 PM CDT Therapy Visit [address] 89480-178014 Danya You, PA [address] [address] Charis Chacon, [facility] [address] [place] [address] 03/17/2024 4:00 PM CDT Therapy Visit [address] [phone] Danya You, PA [address] [address] Delicia George, PT [facility] SURGERY [address] 721055 03/23/2024 10:30 AM CDT Office Visit [facility] [address] [place] [phone] Denise Woodson Ra, BUTTONHOLE MAKER HAND [facility] [address] [place], [place] 2417568 03/26/2024 1:30 PM CDT Therapy Visit [address] [phone] Danya You, PA [facility] [address] [address] Isabel Beaulieu OTJah [address] [address] 03/26/2024 2:30 PM CDT Therapy Visit [address] [phone] Danya You, PA [facility] [address] [address] Charis Chacon, JUAN [facility] [address] [place] [address] 03/26/2024 3:30 PM CDT Therapy Visit [facility] 150 [place] [address]14 Danya You, PA [address] 213 [place] [address] Delicia George, PT [facility] SURGERY [address] [address] 04/02/2024 2:15 PM CDT Therapy Visit [facility] 150 [place] [address]-57[address] Danya You, PA [address] [place] [address] Isabel Beaulieu, JAIMIE [facility] 150 [place] [address] 04/02/2024 3:15 PM CDT Therapy Visit [facility] 150 [place] [address]-5714 Danya You, PA [address] 213 [place] [address] Charis Chacon, JUAN [facility] [address] [place] [address] 04/02/2024 4:15 PM CDT Therapy Visit [facility] 150 [place] [address]-5714 Danya You PA [address] [place] [address] Delicia George, PT [address] [address] 04/09/2024 3:15 PM CDT Therapy Visit [address] [phone] Danya You, PA [address] [place] [address] Charis Chacon, J[facility]AN [facility] [address] [place] [address] 04/09/2024 4:15 PM CDT Therapy Visit [address] 76830-170314 Danya You PA [address] [place] [address] Delicia George, PT [facility] CENTER [address] [place] [address] 04/15/2024 9:30 AM CDT Therapy Visit [address] [phone] Danya You, PA [address] [place] [address] Danya Restrepo, SHUT OFF WORKER 04/23/2024 2:30 PM CDT Therapy Visit [address] [phone] Danya You, PA 2450 [facility] 213 [place] [address] Charis Chacon, [facility] [address] [place] [address] 06/23/2024 11:00 AM CDT Virtual Visit [facility] Mental Health & Addiction [facility] 6401 [place] [address] Kristin Vázquze, [facility] 5441 [place] [address] 06/30/2024 2:00 PM CDT Virtual Visit [facility] Health & Addiction [facility] 6401 [place] [address] Kristin Vázquez, [facility] 6341 [place] [address] documented as of this encounter Visit Diagnoses Not on filedocumented in this encounter Additional Health Concerns Assessment Noted Time PHQ-9 Depression Total Score: 0 06/23/20 21 4:11 PM CDT documented as of this encounter Care Teams Forensic Photographer Relationship Specialty Start Date End Date Winston Villatoro OD [facility] 701 [facility] [address] [place] [address] PCP - Ophthalmology Ophthalmology 02/11/13 Denise Woodson Ra, APRN MARKETING STRATEGY LEAD [address] [place] [address] PCP - General Family Practice 09/21/20 Denise Woodson Ra, APRN MARKETING STRATEGY LEAD [address] PRIMO THOMPSON [address] Assigned PCP 07/17/20 Usha Simon APRN MARKETING STRATEGY LEAD 9 [facility] [id number] [place] [address] Nurse Practitioner Neurological Surgery 01/24/24 documented as of this encounter
--- OUTSIDE RECORDS SUMMARY | 2024-02-02 22:33 | XMS_ITS | Encounter Summary ---
Author Name Unknown Organization [place] Address [address] [place] [address] Care Team Providers Care Engineering Faculty Name Role Phone Winston Villatoro OD Unavailable [phone] Denise Woodson Ra, APRN NUTRITION TECH Unavailable +- [phone] Denise Woodson Ra, APRN NUTRITION TECH Primary Care Provid er Usha Simon APRN NUTRITION TECH Unavailable +- [phone] Dangelo Salinas MD Unavailable Encounter Details Date Type Department Care Team (Late st Contact Info) Description 01/27/2024 [facility] Neurology Clinic [address] 3rd [place] [address] None Social History Tobacco Use [...] Return date: Next avail Specialty phone number: [phone] Additional appointment(s) needed: N/A Additonal Notes: In Basket documented in this encounter Plan of Treatment Upcoming Encounters Date Type Department Care Team (Late st Contact Info) Description 02/03/2024 8:45 AM CDT Therapy Visit [facility] Services [address] [phone] Denise Woodson Ra, FORKLIFT TECHNICIAN NUTRITION TECH [address] [place], [place] [phone] Addis Rojas, PT [facility] [address] [place] [address] 02/04/[address] [facility] Neurology [address] [phone] Raul Hoyos MD [address] [place] [address] *-*INCOMING RECORDS*-* 02/04/2024 11:00 AM CDT Virtual Visit [facility] Neurology [address] [address] Raul Hoyos MD [address] [place] [address] 349535 02/06/2024 8:30 AM CDT Office Visit [facility] [address] [place] [address] Denise Woodson Ra, FORKLIFT TECHNICIAN NUTRITION TECH [address] [place], [place] 2285668 02/07/2024 2:00 PM CDT Therapy Visit [address] [address]-46[address] Danya You PA [address] [place] [address] Charis Chacon SLP [facility] [address] [place] [address] 02/14/2024 12:45 PM CDT Therapy Visit [address] [phone] Danya You PA [address] [place] [address] Isabel Beaulieu OTR [address] [address] 02/14/2024 2:00 PM CDT Therapy Visit [address] [phone] Danya You, PA [address] [place] [address] Charis Chacon, JUAN [facility] [place] [address] 02/14/2024 2:45 PM CDT Therapy Visit [address] [phone] Danya You PA [address] [place] [address] Maria Eugenia Nguyen, PT 2155 [place] [address] 02/17/2024 2:45 PM CDT Therapy Visit [facility] 150 [place] [address] Danya You, PA [address] [place] [address] Aliya Kim, TOOL AND GAUGE INSPECTOR [address] [facility], [address] [place] [address] 02/19/2024 3:00 PM CDT Therapy Visit [address] [phone] Danya You, PA [address] [address] Isabel Beaulieu, OTR [address] [address] 02/26/2024 2:15 PM CDT Therapy Visit [address] [address]14 Danya You, PA [address] [place] [address] Charis Chacon, JUAN [facility] [address] [place] [address] 02/26/2024 3:00 PM CDT Therapy Visit [address] [phone] Danya You, PA [address] [address] Isabel Beaulieu, OTR [facility] 150 [place] [address] 02/27/2024 4:45 PM CDT Therapy Visit [facility] 150 [place] [address] Danya You, PA [address] [address] Vanessa Duggan, PT 03/05/2024 1:30 PM CDT Therapy Visit [facility] 150 [place] [address] Danya You, AMAIRANI [address] [address] Isabel Beaulieu, OTR [facility] 150 [place] [address] 03/05/2024 3:15 PM CDT Therapy Visit [facility] 150 [place] [address] Danya You, PA [address] [address] Charis Chacon, [facility] [address] [place] [address] 03/05/2024 4:15 PM CDT Therapy Visit [facility] [address] [place] [address] Danya You, PA [address] [address] Delicia George, PT [address] 609905 03/11/2024 2:15 PM CDT Therapy Visit [address] [phone] Danya You, PA [address] 213 [place] [address] Isabel eBaulieu OTJah [address] [address] 03/11/2024 3:00 PM CDT Therapy Visit [address] [phone] Danay You, PA [address] MB [address] [place] [address] Charis Chacon, [facility] 2001AB [address] [place] [address] 03/11/2024 4:15 PM CDT Therapy Visit [address] [phone] Danya You, PA [address] [place] [address] Delicia George, PT [facility] [address] [place] [address] 03/17/2024 1:30 PM CDT Therapy Visit [place] [address] [place] [address] Danya You, AMAIRANI [address] [address] Isabel Beaulieu, OTR [facility] 150 [place] [address] 03/17/2024 2:30 PM CDT Therapy Visit [address] [address] Danya You, PA 8470 [facility] [address] [address] Charis Chacon, JUAN [facility] [address] [place] [address] 03/17/2024 4:00 PM CDT Therapy Visit [address] [phone] Danya You, PA 7890 [facility] [address] [address] Delicia George, PT [facility] [address] [place] [address] 03/23/2024 10:30 AM CDT Office Visit [facility] [address] [place] [address] Denise Woodson Ra, FORKLIFT TECHNICIAN [facility] [address] [place], [place] 49597[address] 03/26/2024 1:30 PM CDT Therapy Visit [address] [place] [address] Danya You PA [address] [place] [address] 348114 Isabel Beaulieu, OTR [facility] 150 [place] [address] 03/26/2024 2:30 PM CDT Therapy Visit [facility] 150 [place] [address] Danya You, AMAIRANI [address] [address] Charis Chacon, [facility] [address] [place] [address] 03/26/2024 3:30 PM CDT Therapy Visit [facility] [address] [place] [address] Danya You, PA [address] [address] Delicia George, PT [facility] [address] [place] [address] 04/02/2024 2:15 PM CDT Therapy Visit [facility] 150 [place] [address] Danya You, AMAIRANI [address] [address] Isabel Beaulieu OTR [facility] 150 [place] [address] 04/02/2024 3:15 PM CDT Therapy Visit [address] 58[address]14 Danya You PA [address] [place] [address] Charis Chacon SLP [facility] [address] [place] [address] 04/02/2024 4:15 PM CDT Therapy Visit [address] [phone] Danya You PA [address] [place] [address] Delicia George, PT [facility]ENTER [address] [place] [address] 04/09/2024 3:15 PM CDT Therapy Visit [address] [address] Danya You PA [address] [place] [address] Charis Chacon, JUAN [facility] [address] [place] [address] 04/09/2024 4:15 PM CDT Therapy Visit [address] [phone] Danya You PA [address] [place] [address] Delicia George, PT [facility] 909 [place] [address] 04/15/2024 9:30 AM CDT Therapy Visit [address] 39[address] Danya You, PA 2450 [facility] JIE [address] [address] Danya Restrepo, TOOL AND GAUGE INSPECTOR 04/23/2024 2:30 PM CDT Therapy Visit [address] [phone] Danya You, PA 2450 [facility] JIE [address] [address] Charis Chacon, [facility] 2001AB [address] [place] [address] 06/23/2024 11:00 AM CDT Virtual Visit [facility] Mental Health & Addiction [address] [address] Kristin Vázquez, [facility] 1641 [place] [address] 06/30/2024 2:00 PM CDT Virtual Visit [facility] Mental [facility] & Addiction [facility] 6401 [place] [address] Kristin Vázquez, [facility] 6341 [place] [address] documented as of this encounter Visit Diagnoses Not on filedocumented in this encounter Additional Health Concerns Assessment Noted Time PHQ-9 Depression Total Score: 0 06/23/20 21 4:11 PM CDT documented as of this encounter Care Teams Engineering Faculty Relationship Specialty Start Date End Date Winston Villatoro OD [facility] [address] [place] [address] PCP - Ophthalmology Ophthalmology 02/11/13 Denise Woodson Ra FORKLIFT TECHNICIAN NUTRITION TECH [address] [place] [address] PCP - General Family Practice 09/21/20 Denise Woodson Ra, APRN NUTRITION TECH [address] [place] [address] Assigned PCP 07/17/20 Usha Simon APRN NUTRITION TECH 909 [facility] [id number] [place] [address] Nurse Practitioner Neurological Surgery 01/24/24 Dangelo Salinas MD [address] [place] [address] Neurology 01/27/24 documented as of this encounter
--- OUTSIDE RECORDS SUMMARY | 2024-02-02 22:33 | XMS_ITS | Encounter Summary ---
Author Name Unknown Organization [facility] Address [address] [place] [address]. [place] [address] Care Team Providers Care Licensed Marine Engineer Name Role Phone ShaunaWinston OD Unavailable [phone] Denise Woodson Ra, APRN SKI PATROL Unavailable + [phone] Denise Woodson Ra, APRN SKI PATROL Primary Care Provid er Usha Simon APRN SKI PATROL Unavailable + [phone] Dangelo Salinas MD Unavailable Encounter Details Date [...] CDT Therapy Visit [facility] Services [address] [address] Denise Woodson Ra, SECTION HAND SKI PATROL [address] [place] [address] Addis Rojas, PT [facility] [address] [place] [address] 02/04/2024 PRE VISIT [facility] [address] [phone] Raul Hoyos MD [address] [place] [phone] *-*INCOMING RECORDS*-* 02/04/2024 11:00 AM CDT Virtual Visit [facility] Neurology [address] [phone] Raul Hoyos MD [address] [place] [phone] 02/06/2024 8:30 AM CDT Office Visit [facility] [address] [place] [address] Denise Woodson Ra, SECTION HAND SKI PATROL [address] [place], [place] 8135268 02/07/2024 2:00 PM CDT Therapy Visit [facility] 150 [place] [address] [place], [place] 9920 [facility] 213 [place], [place] [phone] Charis Chacon, RESISTOR TESTING MACHINE OPERATOR [facility] [address] [place] [address] 02/14/2024 12:45 PM CDT Therapy Visit [facility] 150 [place] [address] Danya You PA [address] [place] [address] Isabel Beaulieu, OTR [facility] 150 [place] [address] 02/14/2024 2:00 PM CDT Therapy Visit [facility] 150 [place] [phone] Danya You PA [address] [address] Charis Chacon, [facility]AN [facility] [address] [place] [address] 02/14/2024 2:45 PM CDT Therapy Visit [address] [phone] Danya You, PA [address] [address] Maria Eugenia Nguyen, PT 2155 [place] [address] 02/17/2024 2:45 PM CDT Therapy Visit [address] [phone] Danya You PA 4760 [facility] JIE [address] [address] Aliya Kim, RESISTOR TESTING MACHINE OPERATOR [address] [facility], [address] [address] 02/19/2024 3:00 PM CDT Therapy Visit [facility] 150 [place] [address] Danya You, AMAIRANI 2450 [facility] S[facility] [address] [place] [address] Isabel Beaulieu, OTR [facility] 150 [place] [address] 02/26/2024 2:15 PM CDT Therapy Visit [address] [phone] Danya You, AMAIRANI 2450 [facility] [address] [address] Charis Chacon, JUAN [facility] [address] [place] [address] 02/26/2024 3:00 PM CDT Therapy Visit [address] [phone] Danya You, AMAIRANI 2450 [facility] 213 [place] [address] Isabel Beaulieu, OTR [facility] 150 [place] [address] 02/27/2024 4:45 PM CDT Therapy Visit [address] [phone] Danya You PA 2450 [facility] [address] [place] [address] Vanessa Duggan, PT 03/05/2024 1:30 PM CDT Therapy Visit [facility] [address] [place] [phone] Danya You PA [address] [address] Isabel Beaulieu, OTR [facility] [address] [place] [address] 03/05/2024 3:15 PM CDT Therapy Visit [facility] [address] [place] [phone] Danya You, AMAIRANI [facility] [address] [address] Charis Chacon, [facility] [address] [place] [address] 03/05/2024 4:15 PM CDT Therapy Visit [facility] [address] [place] [phone] Danya You, AMAIRANI [facility] [address] [address] Delicia George, PT [facility] [address] [address] 03/11/2024 2:15 PM CDT Therapy Visit [facility] [address] [place] [phone] Danya You PA [facility] [address] [address] Isabel Beaulieu, OTR [facility] 150 [facility] [place] [address] 03/11/2024 3:00 PM CDT Therapy Visit [facility] 150 [place] [address] Danya You, AMAIRANI [address] [place] [address] Charis Chacon, JUAN [facility] [address] [place] [address] 03/11/2024 4:15 PM CDT Therapy Visit [address] [phone] Danya You, AMAIRANI [address] [place] [address] 542964 Delicia George, PT [facility] [address] [place] [address] 03/17/2024 1:30 PM CDT Therapy Visit [address] [address] Danya You, PA [address] [place] [address] Isabel Beaulieu, OTR VAL[facility] AUR[facility]AL[facility] 150 [place] [address] 03/17/2024 2:30 PM CDT Therapy Visit [facility] 150 [place] [address] Danya You, PA [address] [place] [address] Charis Chacon, [facility] [address] [place] [address] 03/17/2024 4:00 PM CDT Therapy Visit [facility] 150 [place] [phone] Danya You, PA [address] [place] [address] Delicia George, PT [address] [address] 03/23/2024 10:30 AM CDT Office Visit [facility] [address] [place] [phone] Denise Woodson Ra, SECTION HAND SKI PATROL [address] [place], [place] 89[address]368 03/26/2024 1:30 PM CDT Therapy Visit [address] [phone] Danya You, PA 6180 [address] [place] [address] Isabel Beaulieu, JAIMIE [facility] 150 [place] [address] 03/26/2024 2:30 PM CDT Therapy Visit [facility] 150 [place] [phone] Danya You, PA [address] [place] [address] Charis Chacon, JUAN [facility] [address] [place] [address] 03/26/2024 3:30 PM CDT Therapy Visit [facility] 150 [place] [phone] Danya You, PA [address] [place] [address] Delicia George, PT [address] [address] 04/02/2024 2:15 PM CDT Therapy Visit [facility] 150 [place] [address] Danya You, PA [address] [place] [address] Isabel Beaulieu, OTR [facility] 150 [place] [address] 04/02/2024 3:15 PM CDT Therapy Visit [facility] 150 [place] [phone] Danya You, PA [address] [place] [address] Charis Chacon, JUAN [facility] [address] [place] [address] 04/02/2024 4:15 PM CDT Therapy Visit [facility] 150 [place] [address] Danya You, PA [address] [address] Delicia George, PT [address] [address] 04/09/2024 3:15 PM CDT Therapy Visit [address] [address] Danya You, PA [address] [address] Charis Chacon, [facility] [place] [address] 04/09/2024 4:15 PM CDT Therapy Visit [address] [phone] Danya You, PA 2450 [facility] JULIE [address] [address] Delicia George, PT [address] [address] 04/15/2024 9:30 AM CDT Therapy Visit [address] [phone] Danya You, PA [facility] [address] [address] Danya Restrepo SLP 04/23/2024 2:30 PM CDT Therapy [facility] [address] [place] [address] Danya You, PA 0860 [facility] [address] [place] [address] Charis Chacon, [facility] [address] [place] [address] 06/23/2024 11:00 AM CDT Virtual Visit [facility] Mental Health & Addiction [facility] 6401 [place] [address] Kristin Vázquez, [facility] 6341 [place] [address] 06/30/2024 2:00 PM CDT Virtual Visit [facility] Addiction [facility] 6401 [place] [address] Kristin Vázquez, [facility] [address] [place] [phone] documented as of this encounter Visit Diagnoses Not on filedocumented in this encounter Additional Health Concerns Assessment Noted Time PHQ-9 Depression Total Score: 0 06/23/20 21 4:11 PM CDT documented as of this encounter Care Teams Licensed Marine Engineer Relationship Specialty Start Date End Date Winston Villatoro, AMELIE [facility] [place] [address] [place] [address] PCP - Ophthalmology Ophthalmology 02/11/13 Denise Woodson Ra, SECTION HAND SKI PATROL [address] [place] [place] [address] PCP - General Family Practice 09/21/20 Denise Woodson Ra, APRN SKI PATROL [address] [facility] [place] [address] Assigned PCP 07/17/20 Usha Simon APRN SKI PATROL 909 [facility]2121[place] [address] Nurse Practitioner Neurological Surgery 01/24/24 Dangelo Salinas MD [address] [place] [address] Neurology 01/27/24 documented as of this encounter
--- OUTSIDE RECORDS SUMMARY | 2024-02-02 22:33 | XMS_ITS | Encounter Summary ---
Author Name Unknown Organization [place] Address [address] [place] [address]. [place] [address] Care Team Providers Care Bow Maker Custom Name Role Phone Winston Villatoro OD Unavailable [phone] Denise Woodson Ra, APRN MAKEUP SALES CONSULTANT Unavailable [phone] Denise Woodson Ra, APRN, CNP Primary Care Provid er Reason for Referral * Consultation (Routine: Next available opening) - Pending Review Specialty Diagnoses / Procedures Referred By Nila shah Referred To Contact Neurological Surgery Diagnoses Dural arteriovenous fistula Jeevan Sheth MD [address] [place] [address] Referral ID Status Reason Start Date Expiration Date V isits Requested Visits Authorized [id number] Pending Review 01/23/2024 01/22/2025 1 1 Question Answer Reason for Referral: Cerebrovascular Scheduling Instructions: [facility] will call you to coordinate your care as prescribed by your provider. If you don't hear from a access services representative within 2 business days, please call . 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 X-rays, CTs, MRIs, and other imaging must be pushed electronically to the [facility] system. Please be aware that coverage of these services is subject to the terms and limitations of your health insurance plan. Call member services at your health plan with any benefit or coverage questions. [facility] will call you to coordinate your care as prescribed by your provider. If you don't hear from a access services representative within 2 business days, please call . Encounter Details Date Type Department Care Team (Late st Contact Info) Description 01/23/2024 Orders Only [facility] [address] [place] [address] Delisa Manuel MD [address] [place] [address] Dural arteriovenous fistula (Primary Dx) [...] Therapy Visit [facility] Services [address] [phone] Denise Woodson Ra, CONE MARKER MAKEUP SALES CONSULTANT [address] [place] [address] Addis Rojas, PT [facility] [address] [place] [address] 02/04/2024 PRE VISIT [facility] [address] 3rd [place] [phone] Raul oHyos MD [address] [place] [address] [id number] [place], [place] 4[address]65 *-*INCOMING RECORDS*-* 02/04/2024 11:00 AM CDT Virtual Visit [facility] [address] 3rd [place] [phone] Raul Hoyos MD [address] [place] [address] [id number] [place] [address] 02/06/2024 8:30 AM CDT Office Visit [facility] [address] [place] [phone] Denise Woodson Ra, CONE MARKER MAKEUP SALES CONSULTANT [address] [place], [place] [address] 02/07/2024 2:00 PM CDT Therapy Visit [address] [phone] Danya You, PA 2450 [facility] 213 [place], [place] 80[address] Charis Chacon SLP [facility] [address] [place] [address] 02/14/2024 12:45 PM CDT Therapy Visit [address] [phone] Danya You, PA 2450 [facility] 213 [place], [place] 907634 Isabel Beaulieu OTR [facility] 150 [place] [address] 02/14/2024 2:00 PM CDT Therapy Visit [address] [address] Danya You PA [address] [place] [address] Charis Chacon, JUAN [facility] [address] [place] [address] 02/14/2024 2:45 PM CDT Therapy Visit [address] [address] Danya You, PA [address] [address] Maria Eugenia Nguyen, PT 2155 [place] [address] 02/17/2024 2:45 PM CDT Therapy Visit [address] [address] Danya You, AMAIRANI [address] [address] Aliya Kim, SILVER SERVICE WAITER [address] [facility] 200 [place] [address] 02/19/2024 3:00 PM CDT Therapy Visit [address] [address] Danya You PA [address] [place] [address] Isabel Beaulieu, OTJah [address] [address] 02/26/2024 2:15 PM CDT Therapy Visit [facility] 150 [place] [address] Danya You, AMAIRANI [address] [address] Charis Chacon, JUAN [facility] [address] [place] [address] 02/26/2024 3:00 PM CDT Therapy Visit [facility] 150 [place] [address] Danya You, AMAIRANI [address] [address] Isabel Beaulieu OTR [facility] [address] [place] [address] 02/27/2024 4:45 PM CDT Therapy Visit [facility] 150 [place] [address] Danya You, PA 2450 [facility] [address] [address] Vanessa Duggan, PT 03/05/2024 1:30 PM CDT Therapy Visit [facility] 150 [place] [address] Danya You PA [address] [address] Isabel Beaulieu OTR [facility] 150 [place] [address] 03/05/2024 3:15 PM CDT Therapy Visit [facility] [address] [place] [address] Danya You PA [address] [place] [address] Charis Chacon, JUAN [facility] [address] [place] [address] 03/05/2024 4:15 PM CDT Therapy Visit [address] [phone] Danya You, AMAIRANI [address] [place] [address] Delicia George, PT [facility] [address] [place] [address] 03/11/2024 2:15 PM CDT Therapy Visit [address] [phone] Danya You, PA [address] [place] [address] Isabel Beaulieu, JAIMIE [address] [address] 03/11/2024 3:00 PM CDT Therapy Visit [address] [phone] Danya You PA [address] [place] [address] Charis Chacon, JUAN [facility] [address] [place] [address] 03/11/2024 4:15 PM CDT Therapy Visit [facility] 150 [place] [address] Danya You PA [address] [place] [address] Delicia George, PT [facility] [address] [place] [address] 03/17/2024 1:30 PM CDT Therapy Visit [address] [phone] Danya You, AMAIRANI [address] [place] [address] Isabel Beaulieu, OTR [address] [address] 03/17/2024 2:30 PM CDT Therapy Visit [address] [phone] Danya You, PA [address] [address] Charis Chacon, JUAN [facility] [address] [place] [address] 03/17/2024 4:00 PM CDT Therapy Visit [address] [phone] Danya You, AMAIRANI [address] [place] [address] Delicia George, PT [facility] 9 [place] [address] 03/23/2024 10:30 AM CDT Office Visit [facility] [address] [place] [phone] Denise Woodson Ra, CONE MARKER MAKEUP SALES CONSULTANT [address] [place], [place] [address] 03/26/2024 1:30 PM CDT Therapy Visit [address] [phone] Danya You, AMAIRANI [address] [place] [address] Isabel Beaulieu, OTR [address] [address] 03/26/2024 2:30 PM CDT Therapy Visit [address] [phone] Danya You, PA [address] [place] [address] Charis Chacon SLP [facility] [address] [place] [address] 03/26/2024 3:30 PM CDT Therapy Visit [address] [phone] Danya You, PA [address] [place] [address] Delicia George, PT [address] [address] 04/02/2024 2:15 PM CDT Therapy Visit [address] [phone] Danya You, PA [address] [address] Isabel Beaulieu, OTJah [address] [address] 04/02/2024 3:15 PM CDT Therapy Visit [address] [phone] Danya You, PA [address] [address] Charis Chacon, SILVER SERVICE WAITER [facility] [address] [place] [address] 04/02/2024 4:15 PM CDT Therapy Visit [address] [phone] Danya You, PA [address] [address] Delicia George, PT [address] [address] 04/09/2024 3:15 PM CDT Therapy Visit [address] [address] Danya You PA [address] [place] [address] Charis Chacon, J[facility]AN [facility] [address] [place] [address] 04/09/2024 4:15 PM CDT Therapy Visit [address] [address] Danya You, AMAIRANI [address] [place] [address] Delicia George, PT [facility] [address] [address] 04/15/2024 9:30 AM CDT Therapy Visit [address] [address] Danya You, PA [address] [place] [address] Danya Restrepo SLP 04/23/2024 2:30 PM CDT Therapy Visit [address] [address] Danya You PA [address] [place] [address] Charis Chacon, J[facility] [address] [place] [address] 06/23/2024 11:00 AM CDT Virtual Visit [facility] Mental Health & Addiction [facility] [address] [place] [address] [place] [address] Gurpreet Kristin Se, [place] [address] [place] [address] 06/30/2024 2:00 PM CDT Virtual Visit [facility] Mental Health & Addiction [facility] [address]01 [facility] [address] Kristin Vázquez, [place] [address] [place] [address] Scheduled Referrals Name Type Priority Associated Diagnoses Orde r Schedule Adult Neurosurgery Agile Scrum Master Referral Referral Routine: Next available opening Dural arteriovenous fistula Expected: 01/23/2024 (Approximate), Expires: 01/22/2025 documented as of this encounter Visit Diagnoses Diagnosis Dural arteriovenous fistula- Primary Cerebral aneurysm, nonruptured documented in this encounter Additional Health Concerns Assessment Noted Time PHQ-9 Depression Total Score: 0 06/23/20 21 4:11 PM CDT documented as of this encounter Care Teams Bow Maker Custom Relationship Specialty Start Date End Date Winston Villatoro OD [facility] Warrior 701 [facility] [address] [place] [address] PCP - Ophthalmology Ophthalmology 02/11/13 Denise Woodson Ra, APRN MAKEUP SALES CONSULTANT [address] [address] [place] [address] PCP - General Family Practice 09/21/20 Denise Woodson Ra, APRN MAKEUP SALES CONSULTANT [address] [address] [place] [address] Assigned PCP 07/17/20 documented as of this encounter
--- OUTSIDE RECORDS SUMMARY | 2024-02-02 22:33 | XMS_ITS | Encounter Summary ---
Author Name Unknown Organization [place] Address [address] [place] [address] Care Team Providers Care Extruder Operator Name Role Phone Winston Villatoro OD Unavailable [phone] Denise Woodson Ra, APRN WORKFORCE MANAGEMENT CONSULTANT Unavailable + [phone] Denise Woodson Ra, APRN WORKFORCE MANAGEMENT CONSULTANT Primary Care Provid er Usha Simon APRN WORKFORCE MANAGEMENT CONSULTANT Unavailable + [phone] Dangelo Salinas MD Unavailable Encounter Details Date Type Department Care Team (Late st Contact Info) Description 01/27/2024 MyC Medical Advice [facility] [address] [address] [facility] Social History Tobacco Use Types Packs/Day [...] Description 02/03/2024 8:45 AM CDT Therapy Visit [facility] [address] [address] Denise Woodson Ra, NEEDLE PUNCH MACHINE OPERATOR HELPER WORKFORCE MANAGEMENT CONSULTANT [address] [place] [address] Addis Rojas, PT [facility] [address] [place] [address] 02/04/2024 PRE VISIT [facility] [address] [phone] Raul Hoyos MD [address] [place] [id number] *-*INCOMING RECORDS*-* 02/04/2024 11:00 AM CDT Virtual Visit [facility] [address] [address] Raul Hoyos MD [address] [place] [address] 02/06/2024 8:30 AM CDT Office [facility] [address] [place] [phone] Denise Woodson Ra, NEEDLE PUNCH MACHINE OPERATOR HELPER WORKFORCE MANAGEMENT CONSULTANT [address] [place] [address] 02/07/2024 2:00 PM CDT Therapy Visit [facility] [address] [phone] Danya You, PA [address] [place], [place] [address] Charis Chacon, HEALTH ASSOCIATE [facility] [address] [place] [address] 02/14/2024 12:45 PM CDT Therapy Visit [address] [phone] Danya You, PA [address] [place] [address] Isabel Beaulieu, OTR [address] [address] 02/14/2024 2:00 PM CDT Therapy Visit [address] [phone] Danya You PA [address] [address] Charis Chacon, J[facility]AN [facility] [address] [place] [address] 02/14/2024 2:45 PM CDT Therapy Visit [address] [phone] Danya You, PA [address] [place] [address] Maria Eugenia Nguyen, PT 2[address] [place] [address] 02/17/2024 2:45 PM CDT Therapy Visit [address] [phone] Danya You PA [address] [place] [address] Aliya Kim, HEALTH ASSOCIATE [id number] [place] [address], [address] [place] [address] 02/19/2024 3:00 PM CDT Therapy Visit [facility] 150 [facility] [place] [address] Danya You, AMAIRANI [address] [place] [address] Isabel Beaulieu, OTR [facility] [address] [place] [address] 02/26/2024 2:15 PM CDT Therapy Visit [facility] 150 [place] [address] Danya You, AMAIRANI [address] [place] [address] Charis Chacon, [facility] [address] [place] [address] 02/26/2024 3:00 PM CDT [facility] 150 [place] [address] Danya You, PA [address] [place] [address] Isabel Beaulieu, OTR [facility] [address] [place] [address] 02/27/2024 4:45 PM CDT Therapy [facility] 150 [place] [phone] Danya You PA [address] [place] [address] Vanessa Duggan, PT 03/05/2024 1:30 PM CDT Therapy Visit [address] [phone] Danya You, PA [address] [place] [address] Isabel Beaulieu, OTR [address] [address] 03/05/2024 3:15 PM CDT Therapy Visit [address] [phone] Danya You, PA [address] [place] [address] Charis Chacon, HEALTH ASSOCIATE [facility] [address] [place] [address] 03/05/2024 4:15 PM CDT Therapy Visit [address] [phone] Danya You, PA [address] [address] Delicia George, PT [facility] [place] 9[address] [place] [address] 03/11/2024 2:15 PM CDT Therapy Visit [address] [phone] Danya You, PA [address] [address] Isabel Beaulieu, OTR [facility] [address] [address] 03/11/2024 3:00 PM CDT [facility] [address] [place] [address] Danya You, PA [address] [address] Charis Chacon, [facility] [address] [place] [address] 03/11/2024 4:15 PM CDT Therapy Visit [address] [phone] Danya You, PA [address] [address] Delicia George, PT [facility] [address] [place] [address] 03/17/2024 1:30 PM CDT Therapy Visit [facility] 150 [place] [phone] Danya You, PA [address] [address] Isabel Beaulieu, OTR [facility] [address] [place] [address] 03/17/2024 2:30 PM CDT Therapy Visit [address] [place] [address] Danya You, PA [address] [place] [address] Charis Chacon SLP [facility] [address] [place] [address] 03/17/2024 4:00 PM CDT Therapy Visit [address] [address] Danya You, AMAIRANI [address] [place] [address] Delicia George, PT [facility] [address] [address] 03/23/2024 10:30 AM CDT Office Visit [facility] [address] [place] [address] Denise Woodson Ra, NEEDLE PUNCH MACHINE OPERATOR HELPER WORKFORCE MANAGEMENT CONSULTANT [address] [place], [place] [address] 03/26/2024 1:30 PM CDT Therapy Visit [address] [phone] Danya You PA [address] [place] [address] Isabel Beaulieu OTR [address] [address] 03/26/2024 2:30 PM CDT Therapy Visit [address] [place] [address] Danya You PA [address] [place], [place] [address] Charis Chacon SLP [facility] [address] [place] [address] 03/26/2024 3:30 PM CDT Therapy Visit [facility] 150 [place] [address] Danya You, AMAIRANI [address] [place] [address] Delicia George, PT [facility] [address] [address] 04/02/2024 2:15 PM CDT Therapy Visit [facility] 150 [place] [address] Danya You, PA [address] [place] [address] Isabel Beaulieu, OTR [facility] [address] [place] [address] 04/02/2024 3:15 PM CDT Therapy Visit [facility] 150 [place] [address] Danya You, AMAIRANI [address] [place] [address] Charis Chacon, [facility] [address] [place], [place] [address] 04/02/2024 4:15 PM CDT Therapy Visit [address] [address] Danya You PA [address] [place] [address] Delicia George, PT [address] [address] 04/09/2024 3:15 PM CDT Therapy Visit [address] [address] Danya You, AMAIRANI [address] [address] Charis Chacon, HEALTH ASSOCIATE [facility] [address] [place] [address] 04/09/2024 4:15 PM CDT Therapy Visit [address] [address] Danya You, PA [address] [place] [address] Delicia George, PT [address] [address] 04/15/2024 9:30 AM CDT Therapy Visit [address] [address] Danya You PA [address] [address] Danya Restrepo, HEALTH ASSOCIATE 04/23/2024 2:30 PM CDT Therapy Visit [facility] 150 [place] [address] Danya You, PA 2450 [facility] 213 [place] [address] Charis Chacon, [facility] [address] [place] [address] 06/23/2024 11:00 AM CDT Virtual Visit [facility] [address] [address] Kristin Vázquez, [facility] [address] [place] [address] 06/30/2024 2:00 PM CDT Virtual Visit [facility] [address] [address] Kristin Vázquez, [facility] [address] [place] [address] documented as of this encounter Visit Diagnoses Not on filedocumented in this encounter Additional Health Concerns Assessment Noted Time PHQ-9 Depression Total Score: 0 06/23/20 21 4:11 PM CDT documented as of this encounter Care Teams Extruder Operator Relationship Specialty Start Date End Date Winston Villatoro OD [facility] [place] [address] [facility] [address] [place] [address] PCP - Ophthalmology Ophthalmology 02/11/13 Denise Woodson Ra, NEEDLE PUNCH MACHINE OPERATOR HELPER WORKFORCE MANAGEMENT CONSULTANT [address] [place] [address] PCP - General Family Practice 09/21/20 Denise Woodson Ra, APRN WORKFORCE MANAGEMENT CONSULTANT [address] [address] [place] [address] Assigned PCP 07/17/20 Usha Simon APRN WORKFORCE MANAGEMENT CONSULTANT 909 [facility], [place] [address] Nurse Practitioner Neurological Surgery 01/24/24 Dangelo Salinas MD [address] [place] [address] Neurology 01/27/24 documented as of this encounter
--- OUTSIDE RECORDS SUMMARY | 2024-02-02 22:33 | XMS_ITS | Encounter Summary ---
Author Name Unknown Organization [place] Address [address] [place] [address]. [place] [address] Care Team Providers Care Instructional Resource Teacher Name Role Phone Winston Villatoro OD Unavailable [phone] Denise Woodson Ra, APRN SPACE BUYER Unavailable [phone] Denise Woodson Ra, APRN SPACE BUYER Primary Care Provid er Usha Simon APRN SPACE BUYER Unavailable [phone]- [phone] Dangelo Salinas MD Unavailable Reason for Visit * Rehab Therapy Integrated Services (Routine) - Authorized Specialty Diagnoses / Procedures Referred By Nila shah Referred To Contact Diagnoses Cerebrovascular accident (CVA), unspecified mechanism (H) [address] [address] Referral ID Status Reason Start Date Expiration Date V isits Requested Visits Authorized [id number] Authorized 09/16/2023 09/15/2024 365 365 Encounter Details Date Type Department Care Team (Latest Contact Info) Description 01/28/2024 1:15 PM CDT Therapy Visit [address] [address] Danya You, PA [address] [place] [address] 055144 Delicia George, PT [facility] [address] [place] [address] Cerebrovascular accident (CVA), unspecified mechanism (H) Social [...] presented for a planned catheter angiogram at [facility] for left sided pulsatile tinnitus, following procedure found to have multiple acute ischemic infarcts of the frontal lobes, parietal lobes and left supramarginal gyrus after procedure with associated right sided weakness and numbness, likely embolic in nature secondary to procedure complication, complicated by post-stroke seizures, admitted on 01/17/2024 at [facility] for acute inpatient rehabilitation. She had a seizure like activity and went to [facility] a few days. Discharged in sett ing of acute mental status change, concern for seizure, workup felt not consistent with seizure, episodes felt related to fatigue/stress. Functionally making progress with ongoing strength, balance, activity tolerance, and cognition below baseline, plan for home with outpatient PT/OT/HARD CANDY BATCH MIXER. ARU from01/21- 01/26/24 before discharging home. 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 Clinical Decision Making (Complexity): Clinical Presentation: Evolving/Changing Clinical Presentation Rationale: based on medical and personal factors listed in PT evaluation Clinical Decision Making (Complexity): Moderate complexity PLAN OF CARE Treatment Interventions: Interventions: Gait Training, Manual Therapy, Neuromuscular Re-education, Therapeutic Activity, Therapeutic Exercise, Self-Care/Home Management, Canalith Repositioning Fci Goals PT Goal 1 Goal Identifier: HEP [...] Care. Evaluation Time: PT Lev Bajwa Minutes (19558): 35 Signing Clinician: Delicia George PT documented in this encounter Plan of Treatment Upcoming Encounters Date Type Department Care Team (Late st Contact Info) Description 02/03/2024 8:45 AM CDT Therapy Visit [address] [address] Denise Woodson Ra, BOARD HANDLER SPACE BUYER [address] [place] [address] Addis Rojas, PT [facility] [address] [place] [address] 02/04/2024 PRE VISIT [facility] Neurology [address] [phone] Raul Hoyos MD [address] [place] [address] *-*INCOMING RECORDS*-* 02/04/2024 11:00 AM CDT Virtual Visit [facility] Neurology [address] [phone] Raul Hoyos MD [address] [place] [address] 02/06/2024 8:30 AM CDT Office Visit [facility] [address] [place] [phone] Denise Woodson Ra, APRN CNP [address] [place] [address] 02/07/2024 2:00 PM CDT Therapy Visit [address] [phone] Danya You, PA [address] [address] Charis Chacon SLP [facility] [address] [place], [place] 12[address] 02/14/2024 12:45 PM CDT Therapy Visit [address] [address] Danya You, PA 2450 [facility] [address] [address] Isabel Beaulieu, OTR [address] [address] 02/14/2024 2:00 PM CDT Therapy Visit [address] [phone] Danya You, PA [address] [place] [address] 583094 Charsi Chacon, [facility] [address] [place], [place] 8[address] 02/14/2024 2:45 PM CDT Therapy Visit [facility] 150 [place] [address] Danya You, PA 2450 [facility] [place] [address] Maria Eugenia Nguyen, PT 2155 [place] [address] 02/17/2024 2:45 PM CDT Therapy Visit [address] [phone] Danya You PA [address] [place] [address] Aliya Kim, HARD CANDY BATCH MIXER [address] [facility], [facility] 200 [place] [address] 02/19/2024 3:00 PM CDT Therapy Visit [address] [address] Danya You, PA [address] [address] Isabel Beaulieu, OTR [address] [address] 02/26/2024 2:15 PM CDT Therapy Visit [address] [phone] Danya You PA [address] [place] [address] Charis Chacon, [facility] [address] [place] [address] 02/26/2024 3:00 PM CDT Therapy Visit [facility] 150 [place] [address] Danya You PA 2450 [facility] 213 [place] [address] Isabel Beaulieu, OTR [facility] 150 [place] [address] 02/27/2024 4:45 PM CDT Therapy Visit [facility] 150 [place] [address] Danya You, PA 2450 [facility] [address] [place] [address] Vanessa Duggan, GALINA 03/05/2024 1:30 PM CDT Therapy Visit [facility] 150 [place] [phone] Danya You, AMAIRANI [facility] [address] [place] [address] Isabel Beaulieu, OTR [facility] [address] [place] [address] 03/05/2024 3:15 PM CDT Therapy Visit [facility] 150 [place] [address] Danya You, AMAIRANI 2450 [facility] [address] [place] [address] Charis Chacon, [facility] [address] [place] [address] 03/05/2024 4:15 PM CDT Therapy Visit [address] [phone] Danya You, AMAIRANI [facility] [address] [address] Delicia George, PT [facility] [address] [place] [address] 03/11/2024 2:15 PM CDT Therapy Visit [address] [phone] Danya You, AMAIRANI [facility] [address] [address] Isabel Beaulieu, OTR [address] [address] 03/11/2024 3:00 PM CDT Therapy Visit [address] [phone] Danya You, PA [address] [place] [address] Charis Chacon, [facility] [address] [place] [address] 03/11/2024 4:15 PM CDT Therapy Visit [address] [phone] Danya You, PA [address] [place], [place] [address] [address] [address] Delicia George, PT [facility] [address] [place] [address] 03/17/2024 1:30 PM CDT Therapy Visit [address] [phone] Danya You, AMAIRANI [facility] [address] [address] Isabel Beaulieu, OTR [address] [address] 03/17/2024 2:30 PM CDT Therapy Visit [address] [phone] Danya You, PA [facility] [address] [address] Charis Chacon, [facility] [address] [place] [address] 03/17/2024 4:00 PM CDT Therapy Visit [address] [phone] Danya You, PA [address] [place] [address] Delicia George, PT [facility] [address] [place] [address] 03/23/2024 10:30 AM CDT Office Visit [address] [address] Denise Woodson Ra, BOARD HANDLER SPACE BUYER [address] [place] [address] 03/26/2024 1:30 PM CDT Therapy Visit [address] [phone] Danya You, PA [address] [address] Isabel Beaulieu, OTR [address] [address] 03/26/2024 2:30 PM CDT Therapy Visit [address] [phone] Danya You, PA [address] [address] Charis Chacon, [facility] [address] [place] [address] 03/26/2024 3:30 PM CDT Therapy Visit [address] [phone] Danya You, PA [facility] [address] [address] Delicia George, PT [facility] [address] [place] [address] 04/02/2024 2:15 PM CDT Therapy Visit [address] [phone] Danya You, AMAIRANI [address] [place] [address] Isabel Beaulieu, OTR [address] [address] 04/02/2024 3:15 PM CDT Therapy Visit [address] [phone] Danya You, PA [address] [address] Charis Chacon, [facility] [address] [place] [address] 04/02/2024 4:15 PM CDT Therapy Visit [address] [phone] Danya You, PA [address] [address] Delicia George, PT [facility] [address] [place] [address] 04/09/2024 3:15 PM CDT Therapy Visit [address] [phone] Danya You, PA [address] [place] [address] 896014 Charis Chacon, [facility] [address] [place], [place] [address] 04/09/2024 4:15 PM CDT Therapy Visit [facility] 150 [place] [address] Danya You, PA [address] [address] Delicia George, PT [facility] [address] [address] 04/15/2024 9:30 AM CDT Therapy Visit [address] [phone] Danya You, PA 2450 [facility] [address] [address] Danya Restrepo, HARD CANDY BATCH MIXER 04/23/2024 2:30 PM CDT Therapy Visit [address] [phone] Danya You, PA [address] [place], [place] [address] [address] [address] Charis Chacon, [facility] [address] [place] [address] 06/23/2024 11:00 AM CDT Virtual Visit [facility] Mental Health & Addiction [place] 64[address] [facility] [place] [phone] Kristin Vázquez, [facility] 6341 [facility] [place] [address] 06/30/2024 2:00 PM CDT Virtual Visit [facility] Health & Addiction [place] [facility] 64[address] [facility] [place] [phone] Kristin Vázquez, [facility] [address] [facility] [place] [phone] documented as of this encounter Visit Diagnoses Diagnosis Cerebrovascular accident (CVA), unspecified mechanism (H) documented in this encounter Additional Health Concerns Assessment Noted Time PHQ-9 Depression Total Score: 0 06/23/20 21 4:11 PM CDT documented as of this encounter Care Teams Instructional Resource Teacher Relationship Specialty Start Date End Date Winston Villatoro, OD [facility] [place] [address] [place] [address] PCP - Ophthalmology Ophthalmology 02/11/13 Denise Woodson Ra, APRN SPACE BUYER [address] [place] [address] PCP - General Family Practice 09/21/20 Denise Woodson Ra, APRN SPACE BUYER [address] [place] [address] Assigned PCP 07/17/20 Usha Simon APRN SPACE BUYER 9 [facility], [place] [address] Nurse Practitioner Neurological Surgery 01/24/24 Dangelo Salinas MD [address] [place], [place] [id number] Neurology 01/27/24 documented as of this encounter
--- OUTSIDE RECORDS SUMMARY | 2024-02-02 22:33 | XMS_ITS | Encounter Summary ---
Author Name Unknown Organization [facility] [place] Address [address] [place] [address] Care Team Providers Care Junior Underwriter Name Role Phone Winston Villatoro OD Unavailable [phone] Denise Woodson Ra, APRN OPERATING SYSTEMS PROGRAMMER Unavailable [phone] Denise Woodson Ra, APRN OPERATING SYSTEMS PROGRAMMER Primary Care Provid er Usha Simon APRN OPERATING SYSTEMS PROGRAMMER Unavailable [phone] Dangelo Salinas MD Unavailable Reason for Visit * Reason Onset Date Comments Appointment 01/23/2024 Referral-Stroke hospital follow up Encounter Details Date Type Department Care Team (Late st Contact Info) Description 01/23/2024 [facility] Neurology [facility] [address] 3rd [place] [address] None Appointment (Referral-Stroke hospital follow [...] - DanyelleNani - 01/23/2024 1:33 PM CDT [facility] Call Center Phone Message May a detailed message be left on voicemail: yes Reason for Call: Appointment Intake Referring Provider Name: Dr. Delisa Manuel Ur 5 Med Surg Diagnosis and/or Symptoms: Stroke Please review referral for Stroke as no HFU orders are entered for Stroke follow up. Patient discharged on 01/22/24 from [facility] and is now in Acute Rehab Unit. Action Taken: Message routed to: [facility] Neurology Travel Screening: Not Applicable documented in this encounter Plan of Treatment Upcoming Encounters Date Type Department Care Team (Late st Contact Info) Description 02/03/2024 8:45 AM CDT Therapy Visit [facility] Rehabilitation Services [address] [phone] Denise Woodson Ra, CANDY ROLLING MACHINE OPERATOR OPERATING SYSTEMS PROGRAMMER [address] [place] [address] Addis Rojas, PT [facility] [address] [place] [address] 02/04/2024 PRE VISIT [facility] Neurology [address] [phone] Raul Hoyos MD [address] [place] [id number] *-*INCOMING RECORDS*-* 02/04/2024 11:00 AM CDT Virtual Visit [facility] Neurology [address] [phone] Raul Hoyos MD [address] [place] [id number] 02/06/2024 8:30 AM CDT Office Visit [facility] [address] [place] [address] Denise Woodson Ra, CANDY ROLLING MACHINE OPERATOR OPERATING SYSTEMS PROGRAMMER [address] [place], [place] [id number] 02/07/2024 2:00 PM CDT Therapy Visit [address] [phone] Danya You, PA 2450 [facility] [address] [place] [address] Charis Chacon, JUAN [facility] [address] [place], [place] [address] 02/14/2024 12:45 PM CDT Therapy Visit [address] [phone] Danya You, PA 2450 [facility] [address] [place], [place] [phone] Isabel Beaulieu, OTR [address] [address] 02/14/2024 2:00 PM CDT Therapy Visit [address] [phone] Danya You, PA 2450 [facility] [address] [place], [place] [address] Charis Chacon, [facility] [address] [place], [place] [address]26[address] 02/14/2024 2:45 PM CDT Therapy Visit [address] [phone] Danya You, PA [address] [facility] [address] [place] [address] Maria Eugenia Nguyen, PT [address] [place] [address] 02/17/2024 2:45 PM CDT Therapy Visit [facility] [address] [place] [address] Danya You, AMAIRANI 2450 [facility] [address] [place] [address] Aliya Kim, HEALTH PROGRAM SPECIALIST [address] [facility] [address] [place] [address] 02/19/2024 3:00 PM CDT Therapy Visit [facility] [address] [place] [address] Danya You, PA 2450 [facility] [address] [address] Isabel Beaulieu, OTR [facility] [address] [place] [address] 02/26/2024 2:15 PM CDT Therapy Visit [facility] [address] [place] [address] Danya You, PA 24[address] [facility] [address] [address] Charis Chacon, [facility] [address] [place] [address] 02/26/2024 3:00 PM CDT Therapy Visit [facility] [address] [facility] [address] Danya You, AMAIRANI [address] [place] [address] Isabel Beaulieu, OTR [facility] [address] [place] [address] 02/27/2024 4:45 PM CDT Therapy Visit [facility] [address] [place] [phone] Danya You, PA [address] [place] [address] Vanessa Duggan, PT 03/05/2024 1:30 PM CDT Therapy Visit [facility] [address] [place] [address] Danya You PA [address] [place] [address] Isabel Beauliue, OTR [facility] [address] [place] [address] 03/05/2024 3:15 PM CDT Therapy Visit [facility] [address] [place] [address] Danya You PA [address] [place] [address] 490914 Charis Chacon, [facility] [address] [place] [address] 03/05/2024 4:15 PM CDT Therapy Visit [facility] [address] [place] [phone] Danya You, AMAIRANI 24[address] [facility] [address] [address] Delicia George, PT [address] [address] 03/11/2024 2:15 PM CDT Therapy Visit [facility] [address] [place] [phone] Danya You, PA [address] [address] Isabel Beaulieu OTR [address] [address] 03/11/2024 3:00 PM CDT Therapy Visit [address] [phone] Danya You, PA [facility] [address] [address] Charis Chacon, [facility] [address] [place] [address] 03/11/2024 4:15 PM CDT Therapy Visit [address] [phone] Danya You, PA [facility] [address] [address] Delicia George, PT [address] [place] [address] 03/17/2024 1:30 PM CDT Therapy Visit [address] [phone] [place] [address] [place] [address] [address] Isabel Beaulieu, OTR [address] [address] 03/17/2024 2:30 PM CDT Therapy Visit [address] [phone] Danya You, PA [facility] [address] [address] Charis Chacon, [facility] [address] [place] [address] 03/17/2024 4:00 PM CDT Therapy Visit [address] [phone] Danya You, PA [address] [place] [address] Delicia George, PT [facility] [address] [address] 03/23/2024 10:30 AM CDT Office Visit [facility] [address] [place] [address] Denise Woodson Ra, CANDY ROLLING MACHINE OPERATOR [facility] [id number] [place] [address] 03/26/2024 1:30 PM CDT Therapy Visit [address] [phone] Danya You, [place] [address] [place] [address] Isabel Beaulieu, OTR [address] [address] 03/26/2024 2:30 PM CDT Therapy Visit [address] [phone] Danya You, PA [address] [place] [address] Charis Chacon, [facility] [address] [place] [address] 03/26/2024 3:30 PM CDT Therapy Visit [address] [phone] Danya You, PA 2450 [facility] [address] [address] Delicia George, PT [facility] [address] [place] [address] 04/02/2024 2:15 PM CDT Therapy Visit [address] [phone] Danya You, PA [address] [address] Isabel Beaulieu, OTR [address] [address] 04/02/2024 3:15 PM CDT Therapy Visit [address] [phone] Danya You, PA 2450 [facility] [address] [address] Charis Chacon, [facility] [address] [place] [address] 04/02/2024 4:15 PM CDT Therapy Visit [address] [phone] Danya You, PA [address] [address] [address] Delicia George, PT [facility] [address] [place] [address] 04/09/2024 3:15 PM CDT Therapy Visit [address] [phone] [place] [address] [address] Charis Chacon, [facility] [address] [place] [address] 04/09/2024 4:15 PM CDT Therapy Visit [address] [place] [address] Danya You, PA [address] [place] [address] Delicia George, PT [facility] [address] [place] [address] 04/15/2024 9:30 AM CDT Therapy Visit [address] [phone] Danya You, PA [address] [address] Danya Restrepo, HEALTH PROGRAM SPECIALIST 04/23/2024 2:30 PM CDT Therapy Visit [address] [phone] Danya You, PA [address] [address] Charis Chacon, [facility] [address] [place] [address] 06/23/2024 11:00 AM CDT Virtual Visit [facility] [address] [place] [address] Kristin Vázquez, [facility] [address] [place] [phone] 06/30/2024 2:00 PM CDT Virtual Visit [facility] [address] [place] [phone] Kristin Vázquez, [facility] [address] [facility] [place] [address] documented as of this encounter Visit Diagnoses Not on filedocumented in this encounter Additional Health Concerns Assessment Noted Time PHQ-9 Depression Total Score: 0 06/23/20 21 4:11 PM CDT documented as of this encounter Care Teams Junior Underwriter Relationship Specialty Start Date End Date Winston Villatoro, AMELIE [facility] [place] [address] [place] [address] PCP - Ophthalmology Ophthalmology 02/11/13 Denise Woodson Ra, APRN OPERATING SYSTEMS PROGRAMMER [address] [place] [address] PCP - General Family Practice 09/21/20 Dneise Woodson Ra, APRN OPERATING SYSTEMS PROGRAMMER [address] [address] [place] [address] Assigned PCP 07/17/20 Usha Simon APRN OPERATING SYSTEMS PROGRAMMER [address] [id number] [place] [address] Nurse Practitioner Neurological Surgery 01/24/24 Dangelo Salinas MD [address] [place] [address] Neurology 01/27/24 documented as of this encounter
--- OUTSIDE RECORDS SUMMARY | 2024-02-02 22:34 | XMS_ITS | Encounter Summary ---
Author Name Unknown Organization [facility] Address [address] [place] [id number] Care Team Providers Care Medical Scientific Officer Name Role Phone Yung Madrigal MD Unavailable Unavailable Winston Villatoro OD Unavailable [phone] Denise Woodson Ra, APRN SPECIMEN COLLECTOR Unavailable [phone] Denise Woodson Ra, APRN SPECIMEN COLLECTOR Primary Care Provid er Reason for Visit * Auth/Cert (Routine) Specialty Diagnoses / Procedures Referred By Nila t Referred To Contact Rehabilitation [facility] [address] [address] Referral ID Status Reason Start Date Expiration Date Visits Re quested Visits Authorized [id number] 1 1 Encounter Details Date Type Department Care Team (Latest Contact Info) Description 01/17/2024 1:09 PM CDT - 01/19/2024 10:07 PM CDT Hospital Encounter [facility] [address] [id number] Parminder Del Angel MD [address] [place] [address] Sandi Saini MD [address] [place], [place] [id number] Discharge Disposition: Short Term Hospital Social History [...] the original note were not included. . General acute hospital Acute Rehabilitation Unit Discharge summary Date of Admission: 01/17/2024 Date of Discharge: 01/18/34 Disposition: acute hospital Primary Care Physician: Denise Woodson Ra Attending physician: No att. providers found Other significant physician provider(s): call center operations manager Dr. Saini discharge diagnosis Impairment group code: 01.2 Right body, left brain stroke, multiple acute ischemic infarcts in the frontal and parietal lobes, left supramarginal gyrus following angiogram brief summary Alcon Zamora is a 48 year old female with past medical history of Lizy-Danlos syndrome, mild persistent asthma, anxiety and depression, fibromyalgia presented for a planned catheter angiogram at [facility] for left sided pulsatile tinnitus on 01/09/24, found to have multiple acute ischemic infarcts of the frontal lobes, parietal lobes and left supramarginal gyrus after procedure with associated right sided weakness and numbness, likely embolic in nature secondary to procedure complication, complicated by post-stroke seizures, now being admitted on 01/17/2024 at [facility] for acute inpatient rehabilitation. On 01/20/24: BUCK PRESSER was activated. Patient was non-verbal, rapid eye [...] E-Prescribe fluticasone (FLONASE) 50 MCG/ACT nasal spray [place] 2 sprays into both nostrils daily, Disp-16 [...] SpO2: 96% 94% 95% Weight: Height: See BUCK PRESSER notes for physical exam prior to transfer. [...] by mouth daily traZODone (DESYREL) 50 MG tabletIndications:Inso mnia, unspecified type Take 2 tablets (100 mg) by mouth At Bedtime 180 tablet 3 07/27/2021 calcium carbonate (TUMS) 500 MG chewable tabletIndications:Naus ea Take 1 tablet (500 mg) by mouth 4 times daily as needed for heartburn 01/22/2024 senna-docusate (SENOKOT-S/PERICOLACE) 8.6-50 MG tabletIndications:Othe r constipation Take 2 tablets by mouth 2 times daily as needed for constipation 01/22/2024 acetaminophen (TYLENOL) 325 MG tabletIndications:Fibr omyalgia,Pain of [...] (FLONASE) 50 MCG/ACT nasal sprayIndications:Chron ic rhinitis [place] 2 sprays into both nostrils daily 16 [...] encounter Progress Notes * Randy Kwon APRN SPECIMEN COLLECTOR - 01/19/2024 9:54 PM CDT [facility] Critical Response Team BUCK PRESSER Note 01/19/2024 BUCK PRESSER called for: concern for seizure Assessment & [...] ordered -Sign out given to Dr. Reynolds wilcox hospitalist -Continue Keppra regimen HPI: Alcon Zamora is a 48 year old female with past medical history of Lizy- Danlos syndrome, mild persistent asthma, anxiety and depression, fibromyalgia presented for a planned catheter angiogram at [facility] for left sided pulsatile tinnitus on 01/09/24, found to have multiple acute ischemic infarcts of the frontal lobes, parietal lobes and left supramarginal gyrus after procedure with associated right sided weakness and numbness, likely embolic in nature secondary to procedure complication, complicated by post-stroke seizures, now being admitted on 01/17/2024 at [facility] for[facility] inpatient rehabilitation. Code Status: Full Code [...] listed in this note. Randy Kwon APRN SPECIMEN COLLECTOR * Tulio Alva, SCROLL SAW OPERATOR - 01/19/2024 12:58 PM CDT 01/19/24 1251 Appointment Info Signing Clinician's Name / Credentials (SCROLL SAW OPERATOR) Tulio Alva MS, [facility]-SCROLL SAW OPERATOR General Information Onset of Illness/Injury or Date of Surgery 01/09/24 Referring Physician AMAIRANI You Patient/Family Therapy Goal Statement (SCROLL SAW OPERATOR) Swallow without difficulties Pertinent History of Current Problem Alcon Zamora is a 48 year old female with past medical history of Lizy-Danlos syndrome, mild persistent asthma, anxiety and depression, fibromyalgia presented for a planned catheter angiogram at [facility] for left sided pulsatile tinnitus on 01/09/24, [...] difficulties at times with pills and harder tubing drier textures such as chicken breast. Current [...] no specific recommendations Medication Administration Recommendations, Swallowing (SCROLL SAW OPERATOR) Per patient preference Clinical Impression Criteria for Skilled Therapeutic Interventions Met (SCROLL SAW OPERATOR Eval) No problems identified which require skilled intervention SCROLL SAW OPERATOR Diagnosis Swallowing within functional limits Problem List (SCROLL SAW OPERATOR) Suspect patient had some initial oropharyngeal dysphagia that has spontaneously improved. Patient at this date was able to recognize some of the improvements she has had since initial onset of CVA. Activity Limitations Related to Problem List (SCROLL SAW OPERATOR) No restrictions or limitations Clinical Impression Comments Bedside swallow evaluation completed as patient has previously reported some swallowing difficulties with harder/tubing drier food items as well as medications. Patient was observed this date with harder/tubing drier items was able to tolerate without [...] continue focus of treatment on cognitive-linguistic impairments. SCROLL SAW OPERATOR Discharge Planning SCROLL SAW OPERATOR Plan FAVRES as treatment. Moderate to complex level reasoning/problem solving and attention tasks. Immediate/short-term memory strategies. 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 Previous [...] presented for a planned catheter angiogram at [facility] for left sided pulsatile tinnitus, found to [...] good balance Sitting Balance: Dynamic fair balance Qlr-aa-Ctigh Balance fair balance Standing Balance: Static poor [...] coordination training;patient/family education;postural re-education;ROM (range of motion);stair training;strengthening;stretching;iranian ball techniques;TENS;thermotherapy;transfer training;progressive activity/exercise;risk factor education;home program [...] Evaluation Time PT Eval, High Complexity Minutes (68551) 45 Physical Therapy Goals PT Frequency 6x/week [...] Ther. Procedure: strength, endurance, ROM, flexibillity Minutes (77175) 15 Symptoms Noted During/After Treatment fatigue Treatment [...] Object Physical Assistance Level Contact guard assist Home Health Care Provider CARE Score 4 Car Transfer Physical Assistance Level Contact guard assist Car Transfer CARE Score 4 * Tulio Alva SCROLL SAW OPERATOR - 01/18/2024 3:49 PM CDT Repeatable Battery for the Assessment of Neuropsychological Status (RBANS) FORM A Immediate Memory Visuospatial/ Constructional Language Attention Delayed Memory Total Scale Index Score 87 100 91 75 98 86 Percentile Rank 19 50 27 5 45 18 SCROLL SAW OPERATOR: Pt seen for administration of RBANS. Results [...] from the original note were not included. General acute hospital Acute Rehabilitation Unit Progress Note INTERVAL HISTORY Alcon Zamora is a 48 year old female with past medical history of Lizy-Danlos syndrome, mild persistent asthma, anxiety and depression, fibromyalgia presented for a planned catheter angiogram at [facility] for left sided pulsatile tinnitus on 01/09/24, found to have multiple acute ischemic infarcts of the frontal lobes, parietal lobes and left supramarginal gyrus after procedure with associated right sided weakness and numbness, likely embolic in nature secondary to procedure complication, complicated by post-stroke seizures, now being admitted on 01/17/2024 at [facility] for acute inpatient rehabilitation. Reports having poor sleep yesterday. Patient said my sleep medication was not given to me yesterday night. I checked the MAR and Trazodone was given at 9.30 PM PAST MEDICAL HISTORY Reviewed and updated in [employer]. Past Medical History: Diagnosis Date Acute posthemorrhagic [...] asthma SURGICAL HISTORY Reviewed and updated in [employer]. Past Surgical History: Procedure Laterality Date C EDITOR NEWSPAPER PROCEDURE DATE: vag del. C EDITOR NEWSPAPER PROCEDURE DATE: 2000 tubal ligation C EDITOR NEWSPAPER PROCEDURE DATE: 1994 D&C CARDIAC SURGERY 06/2006 heart defect repair ESOPHAGOSCOPY, GASTROSCOPY, DUODENOSCOPY (EGD), COMBINED N/A 02/08/2021 Procedure: ESOPHAGOGASTRODUODENOSCOPY (EGD); Surgeon: Tuan Miller MD; Location: GI GI SURGERY 09/2020 gallbladder removed HC KNEE SCOPE,MED/LAT MENISECTOMY 08/04/13 LT HEART CATH, CLOSURE ATRIAL SEPTAL DEFECT 06/20/06 amplatzer septal occluder- serial #[id number] RW EDITOR NEWSPAPER (ABSTRACTED) pneumonia several times SURGICAL PATHOLOGY EXAM 02/2012 excision of lipoma on chest wall ZZC VAGINAL HYSTERECTOMY 01/30/06 SOCIAL HISTORY Reviewed and updated in [facility]. Living Situation: Lives with Sandor, in split level home , 2 [address] home with rail in front door, no rail in garage (also 2 [address]), 8-9 steps to get to a floor with a bedroom or bathroom. 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 No Social History Narrative Not on file Social Determinants of Health Financial Resource Strain: Low Risk (01/10/2023) Received from [facility] Overall Financial Resource Strain (CARDIA) Difficulty of Paying Living Expenses: Not hard at all Food Insecurity: No Food Insecurity (01/10/2023) Received from [facility] Hunger Vital Sign Worried About Running Out of Food in the Last Year: Never true Ran Out of Food in the Last Year: Never true Transportation Needs: No Transportation Needs (01/10/2023) Received from [facility] PRAPARE - Transportation Lack of Transportation (Medical): No Lack of Transportation (Non-Medical): No Physical Activity: Sufficiently Active (01/10/2023) Received from [facility] Exercise Vital Sign Days of Exercise per Week: 5 days Minutes of Exercise per Session: 30 min Stress: Stress Concern Present (01/10/2023) Received from [facility] [employer] - Occupational Stress Questionnaire Feeling of Stress : Rather much Social Connections: Socially Isolated (01/10/2023) Received from [facility] Social Connection and Isolation Panel [NHANES] Frequency of Communication with Friends and Family: Once a week Frequency of Social Gatherings with Friends and Family: Once a week Attends Congregation Services: Never Active Member of Clubs or Organizations: No Attends Club or Organization Meetings: Never Marital Status: Interpersonal Safety: Not At Risk (01/10/2023) Received from [facility] Humiliation, Afraid, Rape, and Kick questionnaire Fear of Current or Ex-Partner: No Emotionally Abused: No Physically Abused: No Sexually Abused: No Housing Stability: Low Risk (01/10/2023) Received from [facility] Housing Stability Vital Sign Unable to Pay for Housing in the Last Year: No Number of Places Lived in the Last Year: 1 Unstable Housing in the Last Year: No FAMILY HISTORY Reviewed and updated in [employer]. Family History Problem Relation Age of Onset [...] 0 fluticasone (FLONASE) 50 MCG/ACT nasal spray [place] 2 sprays into both nostrils daily 16 [...] 150 - 450 10e3/uL Extra Green Top (Platinum Heparin) Tube Collection Time: 01/18/24 5:40 AM Result Value Ref Range Hold Specimen JI IMPRESSION/PLAN: Alcon Zamora is a 48 year old female with past medical history of Lizy-Danlos syndrome, mild persistent asthma, anxiety and depression, fibromyalgia presented for a planned catheter angiogram at [facility] for left sided pulsatile tinnitus, found to have multiple acute ischemic infarctsof the frontal lobes, parietal lobes and left supramarginal gyrus after procedure with associated right sided weakness and numbness, likely embolic in nature secondary to procedure complication, complicated by post-stroke seizures, now being admitted on 01/17/2024 at [facility] for acute inpatient rehabilitation. Patient will require and benefit from PT, OT, and SCROLL SAW OPERATOR services as well as all of the ancillary services offered in the inpatient rehab setting. Admission to acute inpatient rehab: 01/17/2024 Impairment group code: 01.2 Right body, left brain stroke, multiple acute ischemic infarcts in the frontal and parietal lobes, left supramarginal gyrus following angiogram PT, OT and SCROLL SAW OPERATOR 60 minutes of each on a daily basis, in addition to rehab nursing and close management of safety spec. Impairment of ADL's: Impairment in strength, endurance, [...] # Headaches, frontal Patient was seen by [facility] interventional neuroradiology for diagnostic catheter cerebral angiogram for left sided pulsatile tinnitus. 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, parietal lobes and left supramarginal gyrus, neurology believed embolic in nature, likely procedural complication - PT, OT, SCROLL SAW OPERATOR - Secondary stroke ppx: - BP: Goal [...] need during rehab stay # Asthma - SOFTWARE SOLUTIONS ARCHITECT Breo Ellipta qday # Bowel: States current [...] Appointment Info Signing Clinician's Name / Credentials (SCROLL SAW OPERATOR) Tulio Alva MS [facility] SCROLL SAW OPERATOR General Information Onset of Illness/Injury or Date of Surgery 01/09/24 Referring Physician AMAIRANI You Patient/Family Therapy Goal Statement (SCROLL SAW OPERATOR) Get back to work Pertinent History of Current Problem leigha Zamora is a 48 year old female with past medical historyof Lizy-Danlos syndrome, mild persistent asthma, anxiety and depression, fibromyalgia presented for a planned catheter angiogram at [facility] for left sided pulsatile tinnitus on 01/09/24,found [...] Impression Criteria for Skilled Therapeutic Interventions Met (SCROLL SAW OPERATOR Eval) Yes, treatment indicated SCROLL SAW OPERATOR Diagnosis Mild cognitive linguistic impairment. Problem List (SCROLL SAW OPERATOR) Impaired attention and executive functioning. Patient does have good insight into deficits being experienced Activity Limitations Related to Problem List (SCROLL SAW OPERATOR) Decreased level of independence with higher level [...] benefitfrom skilled intervention to maximize cognitive function. SCROLL SAW OPERATOR Goals Therapy Frequency (SCROLL SAW OPERATOR Eval) 6 times/week SCROLL SAW OPERATOR Predicted Duration/Target Date for Goal Attainment 02/01/24 SCROLL SAW OPERATOR Goals SCROLL SAW OPERATOR Goal 1;SCROLL SAW OPERATOR Goal 2 SCROLL SAW OPERATOR: Goal 1 Patient will utilize compensatory memory strategies to recall novel information with presence of distractions and delays with 90% accuracy SCROLL SAW OPERATOR: Goal 2 Patient will complete complex level reasoning/problem solving tasks with 90% accuracy without need for redirection. SCROLL SAW OPERATOR Discharge Planning SCROLL SAW OPERATOR Plan Initiate and pull to note dysphagia evaluation. Review scores from RBANS and engage in moderate to complex level reasoning/problem solving and attention tasks. Could engage in FAVRES as treatment SCROLL SAW OPERATOR - Acute Rehab Center Time Individual Time (minutes) - SCROLL SAW OPERATOR 60 Group Time (minutes) - SCROLL SAW OPERATOR 0 Concurrent Time (minutes) - SCROLL SAW OPERATOR 0 Co-Treatment Time (minutes) - SCROLL SAW OPERATOR 0 ARC Total Session Time (minutes) - SCROLL SAW OPERATOR 60 ARC Daily Total Session Time SCROLL SAW OPERATOR ARC Daily Total Session Time 60 ARC Daily Rehab Total Minutes 60 documented in this encounter H&P Notes * Sandi Saini MD - 01/17/2024 4:14 PM CDT Images from the original note were not included. General acute hospital Acute Rehabilitation Unit Admission History and Physical CHIEF COMPLAINT Cerebral infarct of the frontal lobes, parietal lobes, left supramarginal gyrus, embolic in nature,likely procedural complication HISTORY OF PRESENT ILLNESS Alcon Zamora is a 48 year old female with past medical history of Lizy-Danlos syndrome, mild persistent asthma, anxiety and depression, fibromyalgia presented for a planned catheter angiogram at [facility] for left sided pulsatile tinnitus on 01/09/24, found to have multiple acute ischemic infarcts of the frontal lobes, parietal lobes and left supramarginal gyrus after procedure with associated right sided weakness and numbness, likely embolic in nature secondary to procedure complication, complicated by post-stroke seizures, now being admitted on 01/17/2024 at [facility] for acute inpatient rehabilitation. Acute Hospital Course: [...] exclude dural AVF. Patient was seen by [facility] interventional neuroradiology for diagnostic catheter cerebral angiogram [...] seen and evaluated by PT, OT, and SCROLL SAW OPERATOR who collectively recommended that patient would benefit from ongoing therapies in the acute inpatient rehabilitation setting, and patient was admitted on 01/17/2024. In review of recent therapy notes: - Per paper chart review: - PT: Min A transfers, gait FWW x 100 ft CGA. - OT: Transfers with min A, requires cutes to attend to right side - SCROLL SAW OPERATOR: No significant communication deficits, some difficulty with swallow sujata with pill swallowing. Has NOT had formal SCROLL SAW OPERATOR assessment, will benefit from full cognitive/linguistic assessment. 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 Patient states she alsohas trouble swallowing pills, [...] PAST MEDICAL HISTORY Reviewed and updated in [employer]. Past Medical History: Diagnosis Date Acute posthemorrhagic [...] asthma SURGICAL HISTORY Reviewed and updated in [employer]. Past Surgical History: Procedure Laterality Date C EDITOR NEWSPAPER PROCEDURE DATE: vag del. C EDITOR NEWSPAPER PROCEDURE DATE: 2000 tubal ligation C EDITOR NEWSPAPER PROCEDURE DATE: 1994 D&C CARDIAC SURGERY 06/2006 heart defect repair ESOPHAGOSCOPY, GASTROSCOPY, DUODENOSCOPY (EGD), COMBINED N/A 02/08/2021 Procedure: ESOPHAGOGASTRODUODENOSCOPY (EGD); Surgeon: Tuan Miller MD; Location: [facility] GI SURGERY 09/2020 gallbladder removed HC KNEE SCOPE,MED/LAT MENISECTOMY 08/04/13 LT HEART CATH, CLOSURE ATRIAL SEPTAL DEFECT 06/20/06 amplatzer septal occluder- serial #[id number] RW EDITOR NEWSPAPER (ABSTRACTED) pneumonia several times SURGICAL PATHOLOGY EXAM 02/2012 excision of lipoma on chest wall ZZC VAGINAL HYSTERECTOMY 01/30/06 SOCIAL HISTORY Reviewed and updated in [facility]. Living Situation: Lives with Sandor, in split level home , 2 [address] home with rail in front door, no rail in garage (also 2 [address]), 8-9 steps to get to a floor with a bedroom or bathroom. 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 No Social History Narrative Not on file Social Determinants of Health Financial Resource Strain: Low Risk (01/10/2023) Received from [facility] Overall Financial Resource Strain (CARDIA) Difficulty of Paying Living Expenses: Not hard at all Food Insecurity: No Food Insecurity (01/10/2023) Received from [facility] Hunger Vital Sign Worried About Running Out of Food in the Last Year: Never true Ran Out of Food in the Last Year: Never true Transportation Needs: No Transportation Needs (01/10/2023) Received from [facility] PRAPARE - Transportation Lack of Transportation (Medical): No Lack of Transportation (Non-Medical): No Physical Activity: Sufficiently Active (01/10/2023) Received from [facility] Exercise Vital Sign Days of Exercise per Week: 5 days Minutes of Exercise per Session: 30 min Stress: Stress Concern Present (01/10/2023) Received from [facility], [facility] [employer] - Occupational Stress Questionnaire Feeling of Stress : Rather much Social Connections: Socially Isolated (01/10/2023) Received from [facility], [facility] Social Connection and Isolation Panel [NHANES] Frequency of Communication with Friends and Family: Once a week Frequency of Social Gatherings with Friends and Family: Once a week Attends Congregation Services: Never Active Member of Clubs or Organizations: No Attends Club or Organization Meetings: Never Marital Status: Interpersonal Safety: Not At Risk (01/10/2023) Received from [facility] Humiliation, Afraid, Rape, and Kick questionnaire Fear of Current or Ex-Partner: No Emotionally Abused: No Physically Abused: No Sexually Abused: No Housing Stability: Low Risk (01/10/2023) Received from [facility], [facility] Housing Stability Vital Sign Unable to Pay for Housing in the Last Year: No Number of Places Lived in the Last Year: 1 Unstable Housing in the Last Year: No FAMILY HISTORY Reviewed and updated in [employer]. Family History Problem Relation Age of Onset [...] 0 fluticasone (FLONASE) 50 MCG/ACT nasal spray [place] 2 sprays into both nostrils daily 16 [...] presented for a planned catheter angiogram at [facility] for left sided pulsatile tinnitus, found to have multiple acute ischemic infarctsof the frontal lobes, parietal lobes and left supramarginal gyrus after procedure with associated right sided weakness and numbness, likely embolic in nature secondary to procedure complication, complicated by post-stroke seizures, now being admitted on 01/17/2024 at [facility] for acute inpatient rehabilitation. Patient will require and benefit from PT, OT, and SCROLL SAW OPERATOR services as well as all of the ancillary services offered in the inpatient rehab setting. Admission to acute inpatient rehab: 01/17/2024 Impairment group code: 01.2 Right body, left brain stroke, multiple acute ischemic infarcts in the frontal and parietal lobes, left supramarginal gyrus following angiogram PT, OT and SCROLL SAW OPERATOR 60 minutes of each on a daily basis, in addition to rehab nursing and close management of safety spec. Impairment of ADL's: Impairment in strength, endurance, [...] # Headaches, frontal Patient was seen by [facility] interventional neuroradiology for diagnostic catheter cerebral angiogram for left sided pulsatile tinnitus. 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 Provider Information Primary Care Physician: Denise Woodson [phone] [address] [address] [facility] [address] [facility] will schedule PCP apt at discharge. Clock Mechanic: SONALI Mental Health/Chemical Dependency: Diagnosis: Pt reported history of depression and anxiety. Pt usually does aromatherapy and meditation. Pt reported she's been taking Atarax for last couple days as she's had panic attack and anxiety.Pt reported not interested in other services at the moment. Alcohol/Tobacco/Narcotis: Per chart review: Alcno Zamora reports that she has never smoked. She has never used smokeless tobacco. She reports that she does not currently use alcohol. She reports that she does not use drugs. Support/Services in Place: medication. Services Needed/Recommended: [place] [facility] support while on ARU available. Sexuality/Intimacy: Not discussed Support System Marital Status: Family support: Sandor (), Silas (son), Erica (daughter) in [place], Kenji (son) in [place]. Pt has 2 granddaughters. Other support available: sonali Community Resources Current in home services: Pt denies current home services. 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 Income Source: Pt work and also works Education: not discussed Financial Concerns: Pt reported trying to figure out short term disability and FMLA. Dual householdand need to figure out finances. Pt will talk to work on Saturday for FMLA paperwork. PT reported short term disability won't start until 30 days. Informed Pt to get FMLA paperwork and give it directlyto Doctor. Insurance: [employer]PAR[employer] Level User [place]/[employer] OPEN ACCESS Discharge Plan Patient and family discharge goal: TBD, pending progress. Goal is to go home. Provided Education on discharge plan: Evaluations and discharge recommendations pending. Patient agreeable to discharge plan: Pending further discussion. Evaluations and discharge recommendations pending. Provided education and attained signature for Medicare IM and IRF Patient Rights and Privacy Information provided to patient : NA Provided patient with [place] [facility] Resources: Provided booklet and [facility] Barriers to discharge: none at the moment Discharge Recommendations Disposition: See above Transportation Needs: Additional comments Discharge TBD, ELOS +/- 14 days . Evals and discharge needs pending. SW will remain available and continue to follow as needs arise. Pt would like information on how to transfer her care to [facility]. Doesn't want to go back to [place]. VIDHYA Pain Assessment Pain Effect on Sleep [...] Rarely or not at all Leanna Call [facility], [facility], [facility] Form Grader Social Work [address] [place] [phone] or [phone]) documented in this encounter Nursing Notes * [...] response called, aid sent urgent message via [employer] and I entered the room pt appearedto [...] given per directive of practitioner. Transferred to [address] [place] [address]. Goal Outcome Evaluation: * Plan of Care - Tulio Alva SLP - 01/19/2024 10:07 PM CDT Speech Language Therapy Discharge Summary Reason for therapy discharge: Discharged to acute care hospital Progress towards therapy goal(s). See goals on Care Plan in [facility] electronic health record for goal details. Goals [...] Feldman OTR - 01/19/2024 12:27 PM CDT [facility] OT: Discharge Plan: Home with [...] to bedroom/bathroom. Pt has a high height antiquer tub/shower combo (need to measure to see [...] from the original note were not included. [facility] OT: Discharge Plan: Home with [...] to bedroom/bathroom. Pt has a high height antiquer tub/shower combo (need to measure to see [...] toilets. Tub/shower combo upstairs with high krystle antiquer tub. Downstairs bathroom has a standard tub/shower combo. No grab bars in bathroom. 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 Was previouslyI with all ADLs and IADLs [...] strength 4/5 MMT Hand Strength Right hand tool and die inspector (pounds) 30 Left hand tool and die inspector (pounds) 48 Coordination Left hand, nine hole [...] Evaluation Time OT Eval, Moderate Complexity Minutes (55220) 30 OT Goals Therapy Frequency (OT) 6 [...] Management Self-Care/Home Mgmt/ADL, Compensatory, Meal Prep Minutes (26073) 30 Symptoms Noted During/After Treatment (Meal Preparation/Planning [...] Dressing (Pants/Undergarments) Describe performance Min A to wire puller hips, pt able to thread BLE [...] Also wants to establish care with a [facility] neurologist and follow up with the complications that occurred at [place], where she was previouslyhospitalized. Sticky note left [...] 02/03/2024 8:45 AM CDT Therapy Visit [address] [phone] Denise Woodson Ra, TECHNICAL ASSOC SPECIMEN COLLECTOR [address] [place] [address] Addis Rojas, PT [facility] [address] [place], [place] [phone] 02/04/2024 PRE VISIT [facility] [address] [address] Raul Hoyos MD [address] [place] [id number] *-*INCOMING RECORDS*-* 02/04/2024 11:00 AM CDT Virtual Visit [facility] [address] [address] Raul Hoyos MD [address] [place] [address] 02/06/2024 8:30 AM CDT Office Visit [facility] [address] [place] [phone] Denise Woodson Ra, TECHNICAL ASSOC SPECIMEN COLLECTOR [address] [place], [place] [phone] 02/07/2024 2:00 PM CDT Therapy Visit [address] [phone] Danya You, PA [facility] [address] [place], [place] [phone] Charis Chacon, [facility] [address] [place] [address] 02/14/2024 12:45 PM CDT Therapy Visit [address] [phone] Danya You, AMAIRANI [address] [place] [address] Isabel Beaulieu, OTR [address] [address] 02/14/2024 2:00 PM CDT Therapy Visit [address] [phone] Danya You PA [address] [place] [address] Charis Chacon, [facility] [address] [place] [address] 02/14/2024 2:45 PM CDT Therapy Visit [address] [phone] Danya You, PA [address] [place] [address] Maria Eugenia Nguyen, PT [address] [place] [address] 02/17/2024 2:45 PM CDT Therapy Visit [address] [phone] Danya You, AMAIRANI [address] [place] [address] Aliya Kim, SCROLL SAW OPERATOR [address] [facility], [address] [place] [address] 02/19/2024 3:00 PM CDT Therapy Visit [facility] [address] [place] [phone] Danya You, PA [address] [address] Isabel Beaulieu, JAIMIE SHEPPARD [address] [address] 02/26/2024 2:15 PM CDT Therapy Visit [facility] [address] [place] [address] Danya You, PA [address] [address] Charis Chacon, [facility] [address] [place] [address] 02/26/2024 3:00 PM CDT Therapy Visit [facility] [address] [place] [address] Danya You, PA [address] [address] Isabel Beaulieu, OTR [facility] [address] [place] [address] 02/27/2024 4:45 PM CDT Therapy Visit [facility] [address] [address] Danya You, PA [address] [address] Vanessa Duggan, PT 03/05/2024 1:30 PM CDT Therapy Visit [address] [phone] Danya You, PA [address] [address] Isabel Beaulieu OTR [address] [address] 03/05/2024 3:15 PM CDT Therapy Visit [address] [phone] Danya You, PA [address] [address] Charis Chacon, SCROLL SAW OPERATOR [facility] [address] [place] [address] 03/05/2024 4:15 PM CDT Therapy Visit [address] [phone] Danya You, PA [address] [address] Delicia George, PT [facility] [address] [place] [address] 03/11/2024 2:15 PM CDT Therapy Visit [facility] [address] [place] [address] Danya You PA 2450 [facility] [address] [address] Isabel Beaulieu, OTR [facility] [address] [place] [address] 03/11/2024 3:00 PM CDT [facility] [address] [place] [phone] Danya You, AMAIRANI 2450 [facility] [address] [address] Charis Chacon, [facility] [address] [place] [address] 03/11/2024 4:15 PM CDT Therapy Visit [facility] [address] [place] [phone] Danya You, AMAIRANI [facility] [address] [address] Delicia George, PT [facility] [address] [place] [place] [address] 03/17/2024 1:30 PM CDT Therapy Visit [facility] [address] [place] [phone] Danya You PA [facility] [address] [address] Isabel Beaulieu, OTR [facility] [address] [place] [address] 03/17/2024 2:30 PM CDT Therapy Visit [address] [phone] Danya You, PA [address] [address] Charis Chacon, [facility] [address] [place] [address] 03/17/2024 4:00 PM CDT Therapy Visit [address] [phone] Danya You, PA [address] 9407[address] Delicia George, PT [facility] [address] [place] [place] [address] 03/23/2024 10:30 AM CDT Office Visit [facility] [address] [place] [address] Denise Woodson Ra, TECHNICAL ASSOC [facility] [address] [place], [place] [phone] 03/26/2024 1:30 PM CDT Therapy Visit [address] [phone] [place] [address] [address] Isabel Beaulieu, JAIMIE [address] [address] 03/26/2024 2:30 PM CDT Therapy Visit [address] [phone] Danya You, PA [address] [place] [address] Charis Chacon, SCROLL SAW OPERATOR [facility] [address] [place] [address] 03/26/2024 3:30 PM CDT Therapy Visit [address] [phone] Danya You, PA [address] [address] Delicia George, PT [facility] [address] [place] [place] [address] 04/02/2024 2:15 PM CDT Therapy Visit [address] [phone] Danya You, PA [address] [address] Isabel Beaulieu, JAIMIE [address] [address] 04/02/2024 3:15 PM CDT Therapy Visit [address] [phone] Danya You, PA [address] [place] [address] Charis Chacon, [facility] [address] [place] [address] 04/02/2024 4:15 PM CDT Therapy Visit [address] [phone] Danya You, AMAIRANI [address] [place] [address] Delicia George, PT [address] [address] 04/09/2024 3:15 PM CDT Therapy Visit [address] [address] Danya You, AMAIRANI [address] [place] [address] Charis Chacon, [facility] [address] [place] [address] 04/09/2024 4:15 PM CDT Therapy Visit [address] [address] Danya You, PA [address] [address] Delicia George, PT [address] [address] 04/15/2024 9:30 AM CDT Therapy Visit [address] [address] Danya You, PA [address] [place] [address] Danya Restrepo SLP 04/23/2024 2:30 PM CDT Therapy Visit [facility] [address] [place] [address] Danya You, PA [address] [place] [address] Charis Chacon, [facility] [address] [place] [address] 06/23/2024 11:00 AM CDT [facility] [address] [place] [address] Kristin Vázquez, [facility] [address] [place] [address] 06/30/2024 2:00 PM CDT Virtual Visit [facility] [address] [place] [address] Kristin Vázquez, [facility] [address] [place] [phone] documented as of this encounter Procedures Procedure [...] the vertex were obtained without intravenous contrast. Merchandise Stocker (topogram) image(s) also obtained and reviewed. FINDINGS: [...] the vertex were obtained without intravenous contrast. Merchandise Stocker (topogram) image(s) also obtained and reviewed. FINDINGS: [...] findings. ANA LATHAM MD Randy Kwon APRN SPECIMEN COLLECTOR IMG CT ORDERABLES * EKG 12-lead, complete (01/19/2024 10:33 PM CDT) Systolic Blood Pressure mmHg RADIOLOGY RESULTS Diastolic Blood Pressure mmHg RADIOLOGY RESULTS Ventricular Rate 84 BPM RAD IOLOGY RESULTS Atrial Rate 84 BPM RADIOLOG Y RESULTS [place] Interval 168 ms RADIOLOG Y RESULTS QRS Duration 82 ms RADIOLO GY RESULTS QT 374 ms RADIOLOGY RESULTS QTc 441 ms RADIOLOGY RESULTS P [place] 30 degrees RADIOLOGY RESULTS R AXIS 36 degrees RADIOLOGY RESULTS T [place] -13 degrees RADIOLOGY RESULTS Interpretation ECG Sinus rhythm with frequent Premature ventricular complexes Abnormal ECG No previous ECGs available Confirmed by MD MAN JANE ([id number]) on 01/20/2024 9:02:28 AM RADIOLOGY RESULTS 01/19/2024 10:3 3 PM CDT 01/20/2024 9:02 AM CDT Randy Doyle TECHNICAL ASSOC SPECIMEN COLLECTOR ECG ORDERABLES RADIOLOGY RESULTS * (ABNORMAL) CBC [...] LAB - BLOOD ORDER NASRIN UR LABORATORY [facility] [address] [place] [address], [address] * Fibrinogen activity (01/19/2024 9:33 PM CDT) Fibrinogen Activity 417 170 - 490 mg/dL 01/19/2024 10:18 PM CDT UR LABORATORY Blood BLOOD SPECIMEN / Unknown Venipuncture / Unknown 01/19/2024 9:33 PM CDT 01/19/2024 9:54 PM CDT Randy Kwon APRN, CNP LAB - BLOOD ORDER NASRIN UR LABORATORY [facility] [address] [place] [address], [address] * Partial thromboplastin time (01/19/2024 9:33 PM CDT) aPTT 25 22 - 38 Seconds 01/19/2024 10:18 PM CDT UR LABORATORY Blood BLOOD SPECIMEN / Unknown Venipuncture / Unknown 01/19/2024 9:33 PM CDT 01/19/2024 9:54 PM CDT Randy Kwon APRN SPECIMEN COLLECTOR LAB - BLOOD ORDER NASRIN UR LABORATORY [facility] [address] [facility], [address] [place] [address] * INR (01/19/2024 9:33 PM CDT) INR 0.87 0.85 - 1.15 01/19/2024 10:17 PM CDT UR LABORATORY Blood BLOOD SPECIMEN / Unknown Venipuncture / Unknown 01/19/2024 9:33 PM CDT 01/19/2024 9:54 PM CDT Randy Kwon APRN, CNP LAB - BLOOD ORDER NASRIN UR LABORATORY [facility] [address] [facility], [address] [place] [address] * Prolactin (01/19/2024 9:33 PM CDT) Prolactin 22 5 - 23 ng/mL 01/19/2024 11:23 PM CDT [facility]U LABORATORY Blood BLOOD SPECIMEN / Unknown Venipuncture / Unknown 01/19/2024 9:33 PM CDT 01/19/2024 9:54 PM CDT Randy Kwon APRN, CNP LAB - BLOOD ORDER NASRIN [facility] LABORATORY [facility] [place] [facility] [address] [facility], [address] [place] [address] * Extra Green Top (Platinum Heparin) Tube (01/18/2024 5:40 AM CDT) Hold Specimen JIC 01/18/2024 7:32 AM CDT UR LABORATORY Blood STRUCTURE OF RIGHT UPPER LIMB / Unknown Venipuncture / Unknown 01/18/2024 5:40 AM CDT 01/18/2024 6:18 AM CDT Parminder Del Angel MD LAB - BLOOD ORDERABL ES UR LABORATORY [facility], Room [address] [address] * Platelet count - Routine (01/18/2024 5:40 AM CDT) Platelet Count 217 150 - 450 10e3/uL 01/18/2024 6:15 AM CDT UR LABORATORY Blood STRUCTURE OF RIGHT UPPER LIMB / Unknown Venipuncture / Unknown 01/18/2024 5:40 AM CDT 01/18/2024 6:13 AM CDT Parminder Del Angel MD LAB - BLOOD ORDERABL ES UR LABORATORY [facility] [address] [place] [address], [address] [address] documented in this encounter Visit [...] as of this encounter Care Teams Medical Scientific Officer Relationship Specialty Start Date End Date Yung Madrigal MD RETIRED PCP - Orthopaedics Orthopedics 08/26/12 01/20/24 Winston Villatoro OD [address] [place] [address] PCP - Ophthalmology Ophthalmology 02/11/13 Denise Woodson Ra, APRN SPECIMEN COLLECTOR [address] [place] [place] [address] PCP - General Family Practice 09/21/20 Denise Woodson Ra, APRN SPECIMEN COLLECTOR [address] [place] [address] Assigned PCP 07/17/20 documented as of this encounter
--- OUTSIDE RECORDS SUMMARY | 2024-02-02 22:34 | XMS_ITS | Encounter Summary ---
Author Name Unknown Organization [facility] Address [address] [place] [address]. [place] [address] Care Team Providers Care Three Dimensional Map Modeler Name Role Phone Winston Villatoro OD Unavailable [phone] Denise Woodson Ra, APRN STEAM GIGGER Unavailable [phone] Denise Woodson Ra, APRN STEAM GIGGER Primary Care Provid er Reason for Visit * Auth/Cert Specialty Diagnoses / Procedures Referred By Nila shah Referred To Contact Med Surg Diagnoses seizure-like activity Ur [address] [place] [phone] Referral ID Status Reason Start Date Expiration Date Visits Re quested Visits Authorized [id number] 1 1 Encounter Details Date Type Department Care Team (Late st Contact Info) Description 01/21/2024 8:30 AM CDT Ancillary Procedure [facility] EEG [address] [place] [phone] Kev Ansari MD [address] [place] [address] [address] [place] [address] Anahy Jamil MD [address] [place] [address] Social History Tobacco Use Types Packs/Day Years [...] Description 02/03/2024 8:45 AM CDT Therapy Visit [facility] [address] [phone] Denise Woodson Ra, SENIOR NET DEVELOPER ARCHITECT STEAM GIGGER [address] [place], [place] [id number] Addis Rojas, PT [facility] [address] [place] [address] 02/04/2024 PRE VISIT [facility] [address] [phone] Raul Hoyos MD [address] [place] [address] *-*INCOMING RECORDS*-* 02/04/2024 11:00 AM CDT Virtual Visit [facility] [address] [phone] Raul Hoyos MD [address] [place] [address] 02/06/2024 8:30 AM CDT Office Visit [facility] [address] [place] [phone] Denise Woodson Ra, SENIOR NET DEVELOPER ARCHITECT STEAM GIGGER [address] [place], [place] [phone] 02/07/2024 2:00 PM CDT Therapy Visit [address] [phone] Danya You, PA [address] [place] [address] Charis Chacon SLP [facility] [address] [place] [address] 02/14/2024 12:45 PM CDT Therapy Visit [address] [phone] Danya You, AMAIRANI [address] [place] [address] Isabel Beaulieu OTR [address] [address] 02/14/2024 2:00 PM CDT Therapy Visit [address] [phone] Danya You, PA [address] [facility] [address] [place] [address] Charis Chacon SLP [place] [address] [place] [address] 02/14/2024 2:45 PM CDT Therapy Visit [address] [phone] Danya You PA [address] [place], [place] [address] Maria Eugenia Nguyen, PT [address] [place] [address] 02/17/2024 2:45 PM CDT Therapy Visit [address] [phone] Danya You, PA [address] [place], [place] [address] Aliya Kim, NAUTICAL INSTRUMENT MECHANIC [address] [facility] [address] [place] [address] 02/19/2024 3:00 PM CDT Therapy Visit [address] [phone] Danya You, AMAIRANI [address] [phone] Isabel Beaulieu, OTR [address] [address] 02/26/2024 2:15 PM CDT Therapy Visit [address] [phone] Danya You, PA [address] [address] Charis Chacon, [facility] [address] [place] [address] 02/26/2024 3:00 PM CDT Therapy Visit [address] [phone] Danya You, PA 7940 [facility] J[facility]IE [address] [address] Isabel Beaulieu, OTR [facility] [place] [address] [place] [address] 02/27/2024 4:45 PM CDT Therapy Visit [facility] [address] [place] [phone] Danya You, AMAIRANI [address] [place] [id number] Vanessa Duggan, PT 03/05/2024 1:30 PM CDT Therapy Visit [facility] [address] [place] [phone] Danya You, AMAIRANI [address] [place] [address] 202354 Isabel Beaulieu, OTR [facility] [address] [place] [address] 03/05/2024 3:15 PM CDT Therapy Visit [facility] [address] [place] [phone] Danya You, PA [address] 724514 Charis Chacon, [facility] [address] [place] [address] 03/05/2024 4:15 PM CDT Therapy Visit [facility] [address] [place] [phone] Danya You PA [address] [place] [address] [id number] Delicia George, PT [address] [address] 03/11/2024 2:15 PM CDT Therapy Visit [address] [phone] Danya You, PA [address] [address] Isabel Beaulieu, JAIMIE [address] [address] 03/11/2024 3:00 PM CDT Therapy Visit [address] [phone] Danya You, PA [address] [address] Charis Chacon, [facility] [address] [place] [address] 03/11/2024 4:15 PM CDT Therapy Visit [address] [phone] Danya You, PA [address] [address] Delicia George, PT [address] [address] 03/17/2024 1:30 PM CDT Therapy Visit [address] [phone] Danya You PA [address] [facility] JIE SOTO [address] [place] [address] Isabel Beaulieu, OTR [facility] [address] [place] [address] 03/17/2024 2:30 PM CDT Therapy Visit [address] [phone] Danya You, AMAIRANI [address] [address] Charis Chacon, [facility] [address] [place] [address] 03/17/2024 4:00 PM CDT Therapy Visit [address] [phone] Danya You, PA [address] [address] Delicia George, PT [facility] [address] [place] [address] 03/23/2024 10:30 AM CDT Office Visit [facility] [address] [place] [address] Denise Woodson Ra, SENIOR NET DEVELOPER ARCHITECT [facility] [address] [place], [place] [phone] 03/26/2024 1:30 PM CDT Therapy Visit [address] [phone] Danya You PA [address] [facility] JIE SOTO [address] [place] [address] Isabel Beaulieu, OTR [facility] [place] [address] [facility] [place] [address] 03/26/2024 2:30 PM CDT Therapy Visit [facility] [address] [place] [phone] Danya You, AMAIRANI [address] [place] [address] Charis Chacon, [facility] [address] [place] [address] 03/26/2024 3:30 PM CDT Therapy Visit [facility] [address] [place] [phone] Danya You, AMAIRANI 24[address] [facility] JIE [address] [address] Delicia George, PT [facility] [address] [place] [address] 04/02/2024 2:15 PM CDT [facility] [address] [place] [phone] Danya You, AMAIRANI [address] [place] [address] Isabel Beaulieu, OTR [facility] [place] [address] [place] [address] 04/02/2024 3:15 PM CDT Therapy Visit [address] [phone] Danya You PA [address] [facility] [address] [place] [address] Charis Chacon SLP [facility] [address] [place] [address] 04/02/2024 4:15 PM CDT Therapy Visit [address] [phone] Danya You, PA [address] [facility] [address] [address] Delicia George, PT [facility] [address] [place] [address] 04/09/2024 3:15 PM CDT Therapy Visit [address] [phone] Danya You, PA [facility] [address] [place] [address] Charis Chacon, [facility] [address] [place] [address] 04/09/2024 4:15 PM CDT Therapy Visit [address] [phone] Danya You PA [facility] [address] [address] Delicia George, PT [facility] [address] [place] [address] 04/15/2024 9:30 AM CDT Therapy Visit [address] [phone] Danya You, PA 2450 [facility] [address] [place] [address] Danya Restrepo, NAUTICAL INSTRUMENT MECHANIC 04/23/2024 2:30 PM CDT Therapy Visit [address] [phone] Danya You, PA 2450 [facility] [address] [place] [address] Charis Chacon, [facility] [address] [place] [address] 06/23/2024 11:00 AM CDT Virtual Visit [facility] [address] [phone] Kristin Vázquez, [facility] [address] [place] [address] 06/30/2024 2:00 PM CDT Virtual Visit [facility] [address] [place] [address] Kristin Vázquez, [facility] [address] [place] [address] documented as of this encounter Procedures Procedure [...] documented as of this encounter Care Teams Three Dimensional Map Modeler Relationship Specialty Start Date End Date Winston Villatoro OD [facility] [place] [address] [place] [address] PCP - Ophthalmology Ophthalmology 02/11/13 Denise Woodson Ra, APRN STEAM GIGGER [address] [place] [place] [address] PCP - General Family Practice 09/21/20 Denise Woodson Ra, APRN STEAM GIGGER [address] [place] [address] Assigned PCP 07/17/20 documented as of this encounter
--- OUTSIDE RECORDS SUMMARY | 2024-02-02 22:34 | XMS_ITS | Encounter Summary ---
Author Name Unknown Organization [facility] Address [address] [place] [id number] Care Team Providers Care Radar Signal Processing Engineer Name Role Phone Yung Madrigal MD Unavailable Unavailable Winston Villatoro OD Unavailable [phone] Denise Woodson Ra, APRN ASSOCIATE SALES Unavailable [phone] Denise Woodson Ra, APRN, CNP Primary Care Provid er Reason for Referral * Consultation (Routine: Next available opening) - Pending Review Specialty Diagnoses / Procedures Referred By Contlandon t Referred To Contact Diagnoses Seizure-like activity (H) History of seizure Cerebrovascular accident (CVA), unspecified mechanism (H) Delisa Manuel MD [address] [place] [address] Referral ID Status Reason Start Date Expiration Date V isits Requested Visits Authorized [id number] Pending Review 01/22/2024 01/21/2025 1 1 Question Answer Reason for Referral: Stroke Scheduling Instructions: [facility] will call you to coordinate your care as prescribed by your provider. If you don't hear from a outreach representative within 2 business days, please call . Additional Information: Recommended to follow up with stroke neurology AND epileptology within 2 months of ARU discharge. Comments Please be aware that coverage of these services is subject to the terms and limitations of your health insurance plan. Call member services at your health plan with any benefit or coverage questions. [employer] [facility] will call you to coordinate your care as prescribed by your provider. If you don't hear from a outreach representative within 2 business days, please call . Reason for Visit * Auth/Cert Specialty Diagnoses / Procedures Referred By Nila t Referred To Contact Med Surg Diagnoses seizure-like activity Ur [address] [place] [phone] Referral ID Status Reason Start Date Expiration Date Visits Re quested Visits Authorized [id number] 1 1 Encounter Details Date Type Department Care Team (Late st Contact Info) Description 01/19/2024 11:16 PM CDT - 01/22/2024 2:19 PM CDT Hospital Encounter [facility] Med Surg [address] [place] [phone] Luis Reynolds DO [address] [place] [id number] Anahy Jamil MD [address] [place] [address] [id number] Jeevan Sheth MD [address] [place] [address] [id number] Fibromyalgia (Primary Dx); Pain of right upper [...] Manuel MD - 01/22/2024 1:11 PM CDT [facility] Discharge Summary - Medicine & Pediatrics Date of Admission: 01/19/2024 Date of Discharge: 01/22/2024 Discharging Provider: Dr. Jeevan Sheth Discharge Service: [facility] Medicine Service Discharge Diagnoses Seizure-like activity S/P [...] discharge - referral placed. Follow up with [facility] Interventional neuroradiology after ARU discharge for repair [...] for questions. - Seizure precautions - Continue INSPECTOR SCREEN PRINTING Keppra 750 mg BID - If recurrent [...] therapy. Progressing well in PT/OT. Cleared by LEVELER HELPER. Given etiology of recent stroke suspected to be atypical clot formation, patient was initiated on Lovenox for DVT prophylaxis at ARU. Reasonable to continue during admission. - Return to ARU - Follow hypercoagulability workup: - Tests pending from [facility], 01/14 (see [place] summary): Factor V, anti- cardiolipin IgG, IgM, IgA - Tests pending from [facility], 5/7: factor II gene mutation, Lupus [...] but would like to transition cares to [facility]. 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 - Hydroxyzine PRN - Work form completed Chronic/Stable: # History of ASD, repaired: Per chart, has Amplatz septal occluder device in place. # Insomnia - INSPECTOR SCREEN PRINTING Atarax 50 mg at bedtime - INSPECTOR SCREEN PRINTING Trazodone 100 mg at bedtime # Asthma - INSPECTOR SCREEN PRINTING Breo Ellipta qday # Constipation - INSPECTOR SCREEN PRINTING Magnesium oxide 400 mg at bedtime - [...] MD [facility] MED [facility] [phone] Physical Exam Vital Signs: Temp: 97.8 ??F [...] Physician Denise Woodson Discharge Orders Adult Neurology Aerial Crop Duster Referral Follow Up and recommended labs and tests Follow up with primary care provider within 7-10 days of ARU discharge. Follow up with neurology within 2 months of ARU discharge - referral placed. Follow up with [facility] Interventional neuroradiology after ARU discharge for repair [...] the findings. ANA LATHAM MD MRA Brain ([place]) wo Contrast Narrative EXAM MRA BRAIN ([place]) W/O CONTRAST 01/20/2024 6:50 PM HISTORY: Multifocal CVA 01/12 with seizure like activity 01/18; Neuro rec'd repeat MRI to rule out recurrent CVA COMPARISON: No images. Outside CTA report for 01/09/2024 obtained through Care Everywhere. TECHNIQUE: Using a 3D tybe-[id number]-epufjm image acquisition technique, MRA of the major [...] Cerrato MD - 01/22/2024 12:21 PM CDT [facility] Neurology Progress Note Patient Name: Alcon Zamora [...] not hesitate to call withquestions/concerns (consult pager [phone]). Choco Cerrato MD Glass Mould Cleaner of Neurology [facility] * Fabi De Leon RN - [...] a 2PM rollover. Above information conveyed to [facility]'s team. 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 Baseline IND with all mobility and ADLs/IADLs. [...] included;patient Clinical Impression Comments Pt presents from [facility] for work up of seizure, with recent [...] Evaluation Time PT Eval, Moderate Complexity Minutes (55679) 30 (includes time for FGA, see separate [...] dynamic activities to improve functional performance Minutes (89417) 15 Symptoms Noted During/After Treatment Fatigue Treatment [...] 01/13, will benefit from intensive therapies at [facility] to optimize recovery of mobility & independence [...] PM: [facility] with [facility]. They can accept patient tomorrow for a tentative roll over at 12pm pending there are no issues with patients EEG. Results are still pending. Updated [facility] team. Will meet with patient shortly at bedside to update her as well. Care management continues to follow. Accepted: [facility] [address] [place] [address] P: [phone] F: [phone] L[address] Oliva, [facility] 5 Med Surg Manager Speech [facility] Pager: [phone] * Airam Jay MD - 01/21/2024 6:42 AM CDT [facility] Progress Note - [facility] [...] for vEEG - Seizure precautions - Continue INSPECTOR SCREEN PRINTING Keppra 750 mg BID - If recurrent [...] therapy. Progressing well in PT/OT. Cleared by LEVELER HELPER. Consults: - Neurology consulted; appreciate recommendations - [...] dural AV fistula. Planned to follow with [facility] Neurology for repair- but would like to transition cares to [facility]. - [facility] Interventional Neuroradiology referral at discharge # DVT prophylaxis Given etiology of recent stroke suspected to be atypical clot formation, patient was initiated on Lovenox for DVT prophylaxis at ARU. Reasonable to continue during admission. - Lovenox daily # Anxiety # Depression # Psychosocial stressors Reports understandable stress given recent events. Denied SI/HI. Coping admirably. 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 - Continue cook room supervisor support - Work form Chronic/Resolved/Stable: # History of ASD, repaired Per chart, has Amplatz septal occluder device in place. # Insomnia - INSPECTOR SCREEN PRINTING Atarax 50 mg at bedtime - INSPECTOR SCREEN PRINTING Trazodone 100 mg at bedtime # Asthma - INSPECTOR SCREEN PRINTING Breo Ellipta qday # Constipation - INSPECTOR SCREEN PRINTING Magnesium oxide 400 mg at bedtime - [...] Physician, Dr. Jamil . Airam Jay MD [facility] Securely message with [employer] info) Text page via [employer] Paging/Directory See signed in provider for up [...] CN II-XII intact. Symmetric 5/5 strength for freight rate analyst strength and hip extension. Psych: Mood appropriate [...] (from the past 24 hour(s)) MRA Brain ([place]) wo Contrast Narrative EXAM MRA BRAIN ([place]) W/O CONTRAST 01/20/2024 6:50 PM HISTORY: Multifocal CVA 01/12 with seizure like activity 01/18; Neuro rec'd repeat MRI to rule out recurrent CVA COMPARISON: No images. Outside CTA report for 01/09/2024 obtained through Care Everywhere. TECHNIQUE: Using a 3D wwbn-uh-[id number] image acquisition technique, MRA of the major [...] Jay MD - 01/20/2024 7:26 AM CDT [facility] Progress Note - [facility] Family Medicine Service Date of Admission: 01/19/2024 Major Plans Today: - Neurology consult - Continue PT/OT - Health Psychology not available; seen by cook room supervisor - Discuss Lovenox with PharmD given AV [...] recommendations Management: - Seizure precautions - Continue INSPECTOR SCREEN PRINTING Keppra 750 mg BID - If recurrent [...] therapy. Progressing well in PT/OT. Cleared by LEVELER HELPER. Continues to have right-sided weakness with complex, [...] but would like to transition cares to [facility]. - Neurology consulted; appreciate recommendations - Confirm Lovenox for DVT ppx with PharmD # Anxiety # Depression # Psychosocial stressors Reports understandable stress given recent events. Denied SI/HI. Coping admirably. 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 - Continue cook room supervisor support Chronic/Stable # History of ASD, repaired Per chart, has Amplatz septal occluder device in place. # Insomnia - INSPECTOR SCREEN PRINTING Atarax 50 mg at bedtime - INSPECTOR SCREEN PRINTING Trazodone 100 mg at bedtime # Asthma - INSPECTOR SCREEN PRINTING Breo Ellipta qday # Constipation - INSPECTOR SCREEN PRINTING Magnesium oxide 400 mg at bedtime - [...] Physician, Dr. Jamil . Airam Jay MD [facility] Securely message with [employer] (more info) Text page via [facility] Paging/Directory See signed in provider for [...] worried about prognosis. 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 Symmetric 5/5 strength for freight rate analyst strength and hip extension. Psych: Mood appropriate [...] the vertex were obtained without intravenous contrast. Recoater (topogram) image(s) also obtained and reviewed. FINDINGS: [...] Call MD - 01/20/2024 12:40 AM CDT [facility] History and Physical - [facility] Family Medicine Service Date of Admission: 01/19/2024 [...] hospital Initial post-stroke seizures noted 01/13 at [facility] and was given Keppra load with IV ativan to abort seizure. [facility] recommended starting Keppra 750 BID and follow up outpatient. She was admitted on 01/17/2024 to [facility] for acute inpatient rehabilitation. Rapid response called [...] seizures. - Neurology consult, appreciate recs - INSPECTOR SCREEN PRINTING Keppra 750 mg BID - If seizure [...] # Headaches, frontal Patient was seen by [facility] interventional neuroradiology for diagnostic catheter cerebral angiogram for left sided pulsatile tinnitus. 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, parietal lobes and left supramarginal gyrus, neurology believed embolic in nature, likely procedural complication. PT, OT, LEVELER HELPER recommended therapies in a acute inpatient rehabilitation [...] appreciate recs - Consider hypercoagulation workup per [facility] while inpatient (factor V Leiden, factor IIgene mutation, Lupus anticoagulant, Cardiolipin antibody) Chronic/Stable # Insomnia Patient reports good relief with atarax for anxiety/insomnia in addition to her trazodone. Patient has been tolerating this regimen well during her hospital stay. Due to atarax's interaction leading to enhance MEAT SOAKER depressant effect. Willing to provide atarax once overnight and will reassess in the morning. - Atarax 50 mg once, day team to consider scheduling if needed - Trazodone 100 mg at bedtime # Asthma - INSPECTOR SCREEN PRINTING Breo Ellipta qday # Bowel: States current [...] Physician, Dr. Sheth . Kun Call MD [facility] Securely message with [employer] ([employer] info) Text page via [facility] Paging/Directory See signed in provider for up to date coverage information Chief Complaint Post-stroke seizures History is obtained from the patient History of Present Illness Alcon Zamora is a 48 year old female with past medical history of Lizy-Danlos syndrome, mild persistent asthma, anxiety and depression, fibromyalgia presented for a planned catheter angiogram at [facility] for left sided pulsatile tinnitus on 01/09/24, found to have multiple acute ischemic infarcts of the frontal lobes, parietal lobes and left supramarginal gyrus after procedure with associated right sided weakness and numbness, likely embolic in nature secondary to procedure complication, complicated by post-stroke seizures, admitted on 01/17/2024 at [facility] for acute inpatient rehabilitation complicated by rapid [...] exclude dural AVF. Patient was seen by [facility] interventional neuroradiology for diagnostic catheter [...] limiting. Patient recommended to be admitted to [facility] for neurology consult. During my encounter, patient mentions having an electric shock like sensation to her right chest which last about a few seconds and then goesaway. She also endorses frontal headaches. Otherwise she denies any chest pain, SOB, nausea, vomiting, abdominal pain, lower extremity swelling or tenderness. MILK CONDENSER workup: -Ct head w/o: pending -CMP, CBC [...] Past Surgical History: Procedure Laterality Date C DIRECTOR OF STUDENT FINANCIAL AID PROCEDURE DATE: vag del. C DIRECTOR OF STUDENT FINANCIAL AID PROCEDURE DATE: 2000 tubal ligation C DIRECTOR OF STUDENT FINANCIAL AID PROCEDURE DATE: 1994 D&C CARDIAC SURGERY 06/2006 heart defect repair ESOPHAGOSCOPY, GASTROSCOPY, DUODENOSCOPY (EGD), COMBINED N/A 02/08/2021 Procedure: ESOPHAGOGASTRODUODENOSCOPY (EGD); Surgeon: Tuan Miller MD; Location: GI GI SURGERY 09/2020 gallbladder removed HC KNEE SCOPE,MED/LAT MENISECTOMY 08/04/13 LT HEART CATH, CLOSURE ATRIAL SEPTAL DEFECT 06/20/06 amplatzer septal occluder- serial #[id number] RW DIRECTOR OF STUDENT FINANCIAL AID (ABSTRACTED) pneumonia several times SURGICAL PATHOLOGY EXAM [...] 50 MCG/ACT nasal spray No No Sig: [place] 2 sprays into both nostrils daily traZODone [...] 30 days: other (see comments) (Transfer [facility]) Reason for Consult: discharge planning Advance Care Planning: other (see comments) (Patient was not interested in completing a HCD at [facility].) Communication Assessment Patient's communication style: spoken language (Greenlandic or Bilingual) Hearing Difficulty or Deaf: no [...] Insecurity: No Food Insecurity (01/10/2023) Received from [facility] Hunger Vital Sign Worried About Running Out of Food in the Last Year: Never true Ran Out of Food in the Last Year: Never true Depression: At risk (01/10/2023) Received from [facility] PHQ-2 PHQ-2 Score: 3 Housing Stability: Low Risk (01/10/2023) Received from [facility] Housing Stability Vital Sign Unable to Pay for Housing in the Last Year: No Number of Places Lived in the Last Year: 1 Unstable Housing in the Last Year: No Tobacco Use: Low Risk (01/17/2024) Patient History Smoking Tobacco Use: Never Smokeless Tobacco Use: Never Passive Exposure: Not on file Financial Resource Strain: Low Risk (01/10/2023) Received from [facility] Overall Financial Resource Strain (CARDIA) Difficulty of Paying Living Expenses: Not hard at all Alcohol Use: Not At Risk (01/10/2023) Received from [facility] AUDIT-C Frequency of Alcohol Consumption: Monthly or less Average Number of Drinks: 1 or 2 Frequency of Binge Drinking: Never Transportation Needs: No Transportation Needs (01/10/2023) Received from [facility] PRAPARE - Transportation Lack of Transportation (Medical): No Lack of Transportation (Non-Medical): No Physical Activity: Sufficiently Active (01/10/2023) Received from [facility] Exercise Vital Sign Days of Exercise per Week: 5 days Minutes of Exercise per Session: 30 min Interpersonal Safety: Not At Risk (01/10/2023) Received from [facility] Humiliation, Afraid, Rape, and Kick questionnaire Fear of Current or Ex-Partner: No Emotionally Abused: No Physically Abused: No Sexually Abused: No Stress: Stress Concern Present (01/10/2023) Received from [facility] [employer] - Occupational Stress Questionnaire Feeling of Stress : Rather much Social Connections: Socially Isolated (01/10/2023) Received from [facility] Social Connection and Isolation Panel [NHANES] Frequency of Communication with Friends and Family: Once a week Frequency of Social Gatherings with Friends and Family: Once a week Attends Christianity Services: Never Active Member of Clubs or [...] No Current Concerns Values/Beliefs Spiritual, Cultural Beliefs, Christianity Practices, Values that affect care: No Additional [...] assessment. Patient reports she was admitted to [facility] for a week and then transferred to ARU here at [facility]. Patient was admitted to ARU on Saturday and then had a seizure and was hospitalized on 5MS last night. SW has already been in contact with [facility] rehab admissions. Per rehabilitation supervisor, she just got to [facility] on Saturday, [...] emailed/faxed back to patients employer which is [employer]. Will ask hospitalist to complete tomorrow. Care management continues to follow. Pending: [facility] [address] [place] [address] P: [phone] F: [phone] L[address] Oliva, MEDIA DEVELOPER 5 Med Surg Manager Speech [facility] Pager: [phone] * Christiano Hooper MD - 01/20/2024 2:23 PM CDTAssociated Order(s): NEUROLOGY GENERAL ADULT IP CONSULT CC: spells HPI: Asked to see this 48 year old woman by medicine team for spells. Recent medical events documented in EMR noted. In brief, was recently at [facility] for interventional exploration of pulsatile tinnitus. She developed right arm weakness after procedure and found to have bihemispheric acute ischemicstrokes on MRI after her cerebral angiogram. She was seen by neurology at [facility] who provided recommendations for stroke follow up. [...] Q8H Kun Call MD 3 mL at 196718 sodium chloride (PF) 0.9% PF flush 3 [...] shows no seizures will need transfer to [place] for vEEG monitoring (to capture spell on [...] at [facility] (rather than [facility]) for further evaluation and management of [...] her life. She did not report a spiritual/catholic affiliation. Alcon shared that she finds it helpful to verbally process these events, as she makes sense of themand gives voice to her emotions. Plan: [facility] remains available by consult. Genet Batres M.Div. Orthodontic Lab Technician Pager [phone] Reachable via [employer] SHS available 08/04 for emergent requests/referrals, either by paging the on-call cook room supervisor or by entering an FIFI/STAT consult in [facility], which will also page the on-call cook room supervisor. Assessment Saw pt Alcon A Noah per [...] thought she was being transferred away from [facility].She reports some financial stressors, and her is back to work in [place] today. Strengths, Coping, and Resources - Alcon described herself as very resilient, which I affirmed. Diana affirmed her strong advocacy voice as she navigated her hospital admission and exercised her self-insight that something wasn't right. Her , daughters, and two granddaughters are primary supports, as well as her aunt, who works as a Neuro RN on the at [facility]. She shared that she is a fix it person, and is feeling better after getting dressed this morning and getting out of bed. Meaning, Beliefs, and Spirituality - Alcon did not identify a spiritual/catholic background. She reports that verbally processing was very helpful for her. [facility] remains available for continued support via consult. documented in this encounter Miscellaneous Notes * Plan of Care - Janna Elizondo, PT - 01/22/2024 2:19 PM CDT Physical Therapy Discharge Summary Reason for therapy discharge: Discharged to acute rehabilitation facility. Progress towards therapy goal(s). See goals on Care Plan in [facility] electronic health record for goal details. Goals [...] Bolaños CM - 01/22/2024 8:15 AM CDT [facility] Pre-Admission Screen Referral Source: [facility] UR [facility] EEG Admit date [...] stroke (01/12) and witness seizure admitted to [facility] 01/19/24 for seizure-like activity. Pt had admitted to [facility] on 01/16 from outside hospital to address ongoing impairments and medical management needs associated with recent cerebral infarct of the frontal lobes, parietal lobes, left supramarginal gyrus, embolic in nature. Stroke attributed to likely procedural complications from planned catheter angiogram at [facility] for left sided pulsatile tinnitus on 01/09/24. After the procedure, noted some incoordination of right arm, then patient had a severe headache, episode of emesis, new onset right arm weakness and numbness, was found to have multiple acute ischemic infarcts believed to beembolic in nature. MRI 01/12 with multifocal stroke. Per Neurology note 01/14, suspect clot formation due to catheter. On 01/19 MILK CONDENSER was activated at [facility]. Patient was non-verbal, rapid eye movement, and repetitive grinding of teeth that was self limiting. It was witnessed by bedside ARU staff prompting code rapid response. Pt transferred to [facility] for further work up of her seizure [...] now stable and ready to return to [facility] for ongoing rehab. Patient requires an intensive inpatient rehab program to address the following acute impairments:impaired activity tolerance, impaired balance, impaired cognition, impaired coordination, and impairedstrength. 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 Continue INSPECTOR SCREEN PRINTING Keppra 750 mg BID and seizure precautions. [...] dural AV fistula. Planned to follow with [facility] Neurology for repair- but would like to transition cares to [facility]. [facility] Interventional Neuroradiology referral at [facility]. Will need ongoing assessment. Mental Health: In setting of Anxiety, depression, psychosocial stressors and insomnia. Reports understandable stress given recent events. Denied SI/HI. Coping admirably. 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 Health Psychology not available for inpatient consulation; would benefit from health psych consult on acute rehab. Continue INSPECTOR SCREEN PRINTING Atarax 50 mg at bedtime. INSPECTOR SCREEN PRINTING Trazodone 100 mg at bedtime. 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 Baseline IND with all mobility and ADLs/IADLs. [...] completed 6 Independent Cognition Not Assessed Independent LEVELER HELPER Current Function Goals for Rehab Swallow Not Impaired Not applicable Communication Not Impaired Not applicable Current Diet: 0-Thin and 7-Regular Summary Statement: Jose Zamora is a 48 y/o female with recent strokes, hemiparesis with UE more involved than LE, balance deficits, and possible swallow deficits. The patient requires ongoing PT, OT and LEVELER HELPER services. 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 Dania needed for transfers when fatigued without [...] Marcelo RN - 01/22/2024 1:23 AM CDT 7945-3568 Pt. Is A & O X 4. [...] Tavares RN - 01/21/2024 10:04 PM CDT 4213-4774 Pt is Aox4. Up SBA with walker [...] time of the update. Information Source(s): Facility ([facility]/) medication list/MAR via N/A Pertinent Information: Completed using MAR from [facility]. Changes made to INSPECTOR SCRE[employer] PRINT[employer] medication list: Added: ASA 325mg daily Cetirizine 10mg daily Keppra 750mg BID MgOxide 200mg at bedtime Psyllium - 1 packet daily Rosuvastatin 20mg at bedtime Deleted: Cyclobenzaprine Flonase Changed: None Allergies reviewed with patient and updates made in EHR: no Medication History Completed By: Speedy Flores Joleen 01/20/2024 4:30 PM INSPECTOR SCREEN [employer]INT[employer] Med List Medication Sig Last Dose albuterol [...] being upset with charting made. Lilliana RN [phone] Provider Addendum: Note was based on review of records from [facility]. Will update to reflect patient report. Airam Jay MD [facility], PGY-2 * Plan of Care - [...] Tovar RN - 01/20/2024 2:51 AM CDT 7866-9978 Goal Outcome Evaluation: Plan of Care Reviewed With: patient Overall Patient Progress: decliningOverall Patient Progress: declining Outcome Evaluation: Pt had seizure while in ARU Pt admitted to floor from ARU after MILK CONDENSER was called for seizure-like activity. Pt is [...] RN) Title of person requesting team RN MILK CONDENSER Arrival time 2101 Time MILK CONDENSER ended 2229 Reason for call Type of MILK CONDENSER Adult Primary reason for call Neurological Neurological Seizure;Other (describe) (concerns for seizure) Was patient transferred from the ED, ICU, or PACU within last 24 hours prior to MILK CONDENSER call? No SBAR Situation Patient found to have rapid eye movement, increased headache with eye pain, and non verbal during seizure like episode Background HX of seizures and post infarcts Notable History/Conditions Seizures;Neurological Assessment Patient was talking when MILK CONDENSER nurse arrived to scene. Patient a/o x4. [...] med surg/ medical for tele and IMC) MILK CONDENSER Team Attending/Primary/Covering Physician Randy Kwon, MONICA Date Attending Physician notified 01/19/24 Time Attending Physician notified 2056 Physician(s) Chacho Kwon and hospitalist. Lead RN Escobar Samson RN RN Azra RN and Matt RN RT na Other staff NST Post MILK CONDENSER Intervention Assessment Post MILK CONDENSER Assessment Stable/Improved (and transferred to [facility]) documented in this encounter Plan of Treatment Upcoming Encounters Date Type Department Care Team (Late st Contact Info) Description 02/03/2024 8:45 AM CDT Therapy Visit [address] [address] Denise Woodson Ra, DEPARTMENTAL SECRETARY ASSOCIATE SALES [address] [place], [place] [phone] Addis Rojas, PT [facility] [address] [place] [address] 02/04/2024 PRE VISIT [facility] [address] [phone] Raul Hoyos MD [address] [place] [phone] *-*INCOMING RECORDS*-* 02/04/2024 11:00 AM CDT Virtual Visit [facility] [address] [phone] Raul Hoyos MD [address] [place] [address] 02/06/2024 8:30 AM CDT Office Visit [facility] [address] [place] [phone] Denise Woodson Ra, DEPARTMENTAL SECRETARY ASSOCIATE SALES [address] [place] [address] 02/07/2024 2:00 PM CDT Therapy Visit [address] [phone] Danya You PA [address] [place] [address] Charis Chacon SLP [facility] [address] [place] [address] 02/14/2024 12:45 PM CDT Therapy Visit [address] [phone] Danya You, AMAIRANI [address] [place] [address] Isabel Beaulieu, OTR [address] [address] 02/14/2024 2:00 PM CDT Therapy Visit [address] [phone] Danya You, PA [address] [address] Charis Chacon, J[facility]AN [facility] [address] [place], [place] [address] 02/14/2024 2:45 PM CDT Therapy Visit [address] [phone] Danya You, AMAIRANI [address] [place] [address] Maria Eugenia Nguyen, PT [address] [place] [address] 02/17/2024 2:45 PM CDT Therapy Visit [facility] [address] [place] [phone] Danya You, PA [address] [place] [address] Aliya Kim, LEVELER HELPER [address] [facility], [address] [place], [place] [address] 02/19/2024 3:00 PM CDT Therapy Visit [facility] [address] [place] [phone] Danya You, AMAIRANI [address] [place] [address] Isabel Beaulieu, OTR [address] [address] 02/26/2024 2:15 PM CDT Therapy Visit [facility] [address] [place] [phone] Danya You, PA [address] [place] [address] Charis Chacon, [facility] [address] [place] [address] 02/26/2024 3:00 PM CDT Therapy Visit [facility] [address] [place] [phone] Danya You, AMAIRANI [address] [address] Isabel Beaulieu, OTR [facility] [address] [place] [address] 02/27/2024 4:45 PM CDT Therapy Visit [facility] [address] [place] [phone] Danya You PA [address] [address] Vanessa Duggan, PT 03/05/2024 1:30 PM CDT Therapy Visit [address] [phone] Danya You PA [address] [address] Isabel Beaulieu, OTR [facility] [address] [place] [address] 03/05/2024 3:15 PM CDT Therapy Visit [address] [phone] Danya You, AMAIRANI [address] [address] Charis Chacon, [facility] [address] [place] [address] 03/05/2024 4:15 PM CDT Therapy Visit [facility] [address] [place] [phone] Danya You PA [address] [address] Delicia George, PT [address] [address] 03/11/2024 2:15 PM CDT Therapy Visit [address] [phone] Danya You, PA [address] [address] Isabel Beaulieu, OTR [address] [address] 03/11/2024 3:00 PM CDT Therapy Visit [address] [phone] Danya You, PA [address] [address] Charis Chacon, [facility] [address] [place] [address] 03/11/2024 4:15 PM CDT Therapy Visit [address] [phone] Danya You, PA [address] [address] Delicia George, PT [address] [address] 03/17/2024 1:30 PM CDT Therapy Visit [address] [phone] Danya You PA [address] [address] Isabel Beaulieu, OTR [address] [address] 03/17/2024 2:30 PM CDT Therapy Visit [address] [phone] Danya You, AMAIRANI [address] [address] Charis Chacon, [facility] [address] [place] [address] 03/17/2024 4:00 PM CDT Therapy Visit [address] [phone] Danya You, PA [address] [place] [address] Delicia George, PT [facility] [address] [address] 03/23/2024 10:30 AM CDT Office Visit [facility] [address] [place] [address] Denise Woodson Ra, DEPARTMENTAL SECRETARY [facility] [address] [place], [place] [phone] 03/26/2024 1:30 PM CDT [facility] [address] [facility] [place] [address] Danya You PA [address] MB [address] [place] [address] Isabel Beaulieu, OTR [facility] [address] [place] [address] 03/26/2024 2:30 PM CDT Therapy Visit [facility] [address] [place] [phone] Danya You, AMAIRANI Mull[address] [address] Charis Chacon, [facility] [address] [place] [address] 03/26/2024 3:30 PM CDT Therapy Visit [facility] [address] [place] [phone] Danya You, AMAIRANI [facility] [address] [address] Delicia George, PT [facility] [address] [place] [address] 04/02/2024 2:15 PM CDT Therapy Visit [facility] [address] [place] [phone] Danya You PA [facility] [address] [address] Isabel Beaulieu, OTR [facility] [address] [place] [address] 04/02/2024 3:15 PM CDT Therapy Visit [address] [address] Danya You PA [address] [place] [address] Charis Chacon, J[facility] [address] [place] [address] 04/02/2024 4:15 PM CDT Therapy Visit [address] [phone] Danya You, AMAIRANI [address] [place] [address] Delicia George, PT [facility] [address] [place] [address] 04/09/2024 3:15 PM CDT Therapy Visit [address] [phone] Danya You, PA [address] [place] [address] Charis Chacon, [facility] [address] [place] [address] 04/09/2024 4:15 PM CDT Therapy Visit [address] [phone] Danya You PA [address] [place] [address] Delicia George, PT [facility] [address] [place] [address] 04/15/2024 9:30 AM CDT Therapy Visit [address] [phone] Danya You, PA [facility] [address] [address] Danya Restrepo, LEVELER HELPER 04/23/2024 2:30 PM CDT Therapy Visit [address] [phone] Danya You, PA [address] [place], [place] [address]Analy [address] [address] Charis Chacon, [facility] [address] [place] [address] 06/23/2024 11:00 AM CDT Virtual Visit [facility] [address] [address] Kristin Vázquez, [facility] [address] [place] [address] 06/30/2024 2:00 PM CDT Virtual Visit [facility] [place] [address] [place] [address] Kristin Vázquez, [facility] [address] [place] [address] Scheduled Referrals Name Type Priority Associated Diagnoses Orde r Schedule Adult Neurology Aerial Crop Duster Referral Referral Routine: Next available opening Seizure-like [...] STAT 01/20/2024 6:53 PM CDT MRA BRAIN ([place]) W/O CONTRAST STAT 01/20/2024 6:50 [...] of an antiphospholipid syndrome, recommend anticardiolipin and bfsl-9-[id number] n (IgG and IgM) antibody tests. Mikayla Cooper MD, PhD [facility] 2:25 PM CDT [facility] Blood STRUCTURE OF RIGHT HAND / Unknown Venipuncture / Unknown 01/21/2024 1:20 PM CDT 01/21/2024 1:26 PM CDT Airam Jay MD LAB - BLOOD ORDERABL ES [facility] SPECIAL [facility]AGULATION [facility] Special Coagulation [address] [facility], [address] [phone] * Factor 2 assay (01/21/2024 1:20 PM CDT) Factor 2 Assay 131 60 - 140 % 01/22/2024 9:53 AM CDT SPECIAL COAGULATION Comment: The Factor 2 activity level is not a screening test for the Prothrombin 52820 mutation. Blood STRUCTURE OF RIGHT HAND / Unknown Venipuncture / Unknown 01/21/2024 1:20 PM CDT 01/21/2024 1:26 PM CDT Airam Jay MD LAB - BLOOD ORDERABL ES SPECIAL COAGULATION UM Special Coagulation [address] [facility], [address] [phone] * EEG Video 2-12 HRS Ummonitored (01/21/2024 12:15 PM CDT) Narrative [facility] - 01/21/2024 3:06 PM CDT EEG Video 2-12 HRS Um[facility]itored Result VIDEO EEG DATE: 01/21/2024 VIDEO EEG [id number] VIDEO EEG DAY#: 1 VIDEO EEG SOURCE [...] ORDERABL ES SPECIALTY CORE/PROT/ENDO Specialty Core/Prot/Endo [address] [facility] J Building, Room [address] * CBC with platelets and differential [...] LAB - BLOOD ORDERABL ES UR LABORATORY [facility] [address] [facility], [address] [place] [address] * Basic metabolic panel (01/21/2024 5:51 [...] LAB - BLOOD ORDERABL ES UR LABORATORY [facility] [address] [facility], [address] [place] [address] * MRA Neck (Carotids) wo [...] MD IM MRI ORDERABLES * MRA Brain ([place]) wo Contrast (01/20/2024 6:50 PM CDT) Anatomical Region Laterality Modality Head, SUBRAD MR NEURO, UMP MR NEURO, RAD MR Magnetic Resonance Impressions 01/20/2024 7:49 PM CDT IMPRESSION: No intracranial arterial aneurysm or stenosis. I have personally reviewed the examination and initial interpretation and I agree with the findings. 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 Outside CTA report for 01/09/2024 obtained through Care Everywhere. 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 Outside CTA report for 01/09/2024 obtained through Care Everywhere. TECHNIQUE: Using a 3D nafi-bi-gnhsni image acquisition technique, MRA of the major [...] LAB - BLOOD ORDERABL ES UR LABORATORY [facility] [address] [facility], [address] [place] [address] * Basic metabolic panel (01/20/2024 6:29 [...] LAB - BLOOD ORDERABL ES UR LABORATORY [facility], Room [address] * Lactic acid whole blood (01/19/2024 11:55 PM CDT) Lactic Acid 1.1 0.7 - 2.0 mmol/L 01/20/2024 12:03 AM CDT UR LABORATORY Blood STRUCTURE OF RIGHT UPPER LIMB / Unknown Venipuncture / Unknown 01/19/2024 11:55 PM CDT 01/20/2024 12:01 AM CDT Len Camejo DO LAB - BLOOD ORDERABLES Performing Organization Address City/[facility]/ZIP Co de Phone Number UR LABORATORY [facility] [address] [place] [address], Room [address] * Basic metabolic panel (01/19/2024 11:55 [...] LAB - BLOOD ORDERABLES Performing Organization Address City/State/[facility] Co de Phone Number UR LABORATORY [facility] [address] [facility], [address] [place] [address] * Troponin T, High Sensitivity (01/19/2024 11:55 PM CDT) Pathologist [facility] Troponin T, High Sensitivity <6 <=14 ng/L [...] DO LAB - BLOOD ORDERABLES UR LABORATORY [facility] [address] [facility], [address] [phone] * Extra Purple Top Tube (01/19/2024 11:54 PM CDT) Hold Specimen JIC 01/20/2024 1:04 AM CDT UR LABORATORY Blood BLOOD SPECIMEN / Unknown Venipuncture / Unknown 01/19/2024 11:54 PM CDT 01/20/2024 12:03 AM CDT uLis Reynolds DO LAB - BLOOD ORDERABL ES UR LABORATORY [facility] [address] [facility], [address] [phone] documented in this encounter Visit [...] Sat01/20/24 at 0100, Substituted per formulary for INSPECTOR SCREEN PRINTING chelated magnesium $Given 01/21/2024 9:09 PM CDT [...] Sat01/20/24 at 0100, Substituted per formulary for INSPECTOR SCREEN PRINTING chelated magnesium 0103 ($Given - Provider: Rocio [...] and neck. [facility]. lidocaine (LMX4) cream Topical, EVERY 1 [...] documented as of this encounter Care Teams Radar Signal Processing Engineer Relationship Specialty Start Date End Date Yung Madrigal MD RETIRED PCP - Orthopaedics Orthopedics 08/26/12 01/20/24 Winston Villatoro OD [facility] [place] [address] [place] [address] PCP - Ophthalmology Ophthalmology 02/11/13 Denise Woodson Ra, APRN ASSOCIATE SALES [address] [address] [address] PCP - General Family Practice 09/21/20 Denise Woodson Ra, APRN ASSOCIATE SALES [address] [address] [place] [address] Assigned PCP 07/17/20 documented as of this encounter
--- OUTSIDE RECORDS SUMMARY | 2024-02-02 22:34 | XMS_ITS | Encounter Summary ---
Author Name Unknown Organization [facility] Address [address] [place] [address] Care Team Providers Care Blockers Skiver Name Role Phone Yung Madrigal MD Unavailable Unavailable Winston Villatoro OD Unavailable [phone] Denise Woodson Ra, APRN INTERNAL INVESTIGATOR Unavailable + [phone] Denise Woodson Ra, APRN INTERNAL INVESTIGATOR Primary Care Provid er Usha Simon BAROMETERS CALIBRATOR INTERNAL INVESTIGATOR Unavailable +- [phone] Dangelo Salinas MD Unavailable Encounter Details Date Type Department Care Team (Late st Contact Info) Description 01/10/2023 MyC Medical Advice [address] [address] Arianna Lo Social History Tobacco [...] Therapy Visit [facility] [address] [phone] Denise Woodson Ra, APRN INTERNAL INVESTIGATOR [address] [place] [address] Addis Rojas, PT [facility] [place] [address] [place] [address] 02/04/2024 PRE VISIT [facility] [address] [phone] Raul Hoyos MD [address] [place] [address] [phone] *-*INCOMING RECORDS*-* 02/04/2024 11:00 AM CDT Virtual Visit [facility] [address] [phone] Raul Hoyos MD [address] [place] [address] 908275 02/06/2024 8:30 AM CDT Office Visit [facility] [address] [place] [phone] Denise Woodson Ra, BAROMETERS CALIBRATOR INTERNAL INVESTIGATOR [address] [place] [address] 02/07/2024 2:00 PM CDT Therapy Visit [facility] [address] [phone] Danya You, AMAIRANI [facility] [address] [place] [address] Charis Chacon, JUAN [facility] [address] [place], [place] 39[address]87 02/14/2024 12:45 PM CDT Therapy Visit [facility] [address] [place] [phone] Danya You, PA 2450 [facility] 213 [place] [address] Isabel Beaulieu, OTR [facility] 150 [place] [address] 02/14/2024 2:00 PM CDT Therapy Visit [address] [phone] Danya You, PA 6530 [facility] 213 [place], [place] 769764 Charis Chacon, UJAN [facility] [address] [place] [address] 02/14/2024 2:45 PM CDT Therapy Visit [address] [phone] Danya You, PA 2450 [facility] 213 [place], [place] 269144 Maria Eugenia Nguyen, PT 2155 [place] [address] 02/17/2024 2:45 PM CDT Therapy Visit [address] [phone] Danya You, PA 2450 [facility] 213 [place] [address] Aliya Kim, RETAIL SALES CLERK [address] [facility] [address] [place] [address] 02/19/2024 3:00 PM CDT Therapy Visit [address] [phone] Danya You PA 2450 [address] [place] [address] Isabel Beaulieu, OTR [address] [address] 02/26/2024 2:15 PM CDT Therapy Visit [address] [phone] Danya You, AMAIRANI 2450 [address] [place] [address] Charis Chacon, [facility] [address] [place] [address] 02/26/2024 3:00 PM CDT Therapy Visit [address] [phone] Danya You, AMAIRANI 2450 [address] [place] [address] Isabel Beaulieu, OTR [facility] [address] [address] 02/27/2024 4:45 PM CDT Therapy Visit [address] [phone] Danya You PA [address]50 [address] [place] [address] Vanessa Duggan, PT 03/05/2024 1:30 PM CDT Therapy Visit [address] [phone] Danya You, AMAIRANI 2450 [facility] [address] [place] [address] 934574 Isabel Beaulieu, OTR [address] [address] 03/05/2024 3:15 PM CDT Therapy Visit [address] [phone] Danya You, PA [address] [place] [address] 204664 Charis Chacon, RETAIL SALES CLERK [facility] [address] [place] [address] 03/05/2024 4:15 PM CDT Therapy Visit [address] [phone] Danya You, PA 9680 [address] [place] [address] 124104 Delicia George, PT [facility] [address] [place] [address] 03/11/2024 2:15 PM CDT Therapy Visit [address] [phone] Danya [place], [place] [address]60 [place] [address] 686614 Isabel Beaulieu, OTR [facility] 150 [place] [address] 03/11/2024 3:00 PM CDT Therapy Visit [facility] 150 [place] [phone] Danya You, AMAIRANI [address] [address] Charis Chacon, [facility] [address] [place] [address] 03/11/2024 4:15 PM CDT Therapy Visit [address] [phone] Danya You, PA [address] [address] Delicia George, PT [facility] SURGERY [address] [address] 03/17/2024 1:30 PM CDT Therapy Visit [facility] 150 [place] [phone] Danya You, PA [address] [address] Isabel Beaulieu, OTR [facility] 150 [place] [address] 03/17/2024 2:30 PM CDT Therapy Visit [address] [phone] Danya You, PA 2450 [facility] 213 [place] [address] Charis Chacon, JUAN [facility] [address] [place] [address] 03/17/2024 4:00 PM CDT Therapy Visit [address] [phone] [place], [place] 5230 [facility] [address] 649484 Delicia George, PT [facility] SURGERY [address] [address] 03/23/2024 10:30 AM CDT Office Visit [facility] [address] [place] [phone] Denise Woodson Ra, BAROMETERS CALIBRATOR INTERNAL INVESTIGATOR [address] [place], [place] 6397968 03/26/2024 1:30 PM CDT Therapy Visit [address] [phone] Danya You, AMAIRANI [address] [place] [address] [address] Isabel Beaulieu OTR [address] [address] 03/26/2024 2:30 PM CDT Therapy Visit [address] [phone] Danya You PA 2450 [address] [place] [address] Charis Chacon SLP [facility] [address] [place] [address] 03/26/2024 3:30 PM CDT Therapy Visit [facility] 150 [place] [phone] Danya You, PA [address] [place] [address] [address] Delicia George, PT [facility] SURGERY [address] [address] 04/02/2024 2:15 PM CDT Therapy Visit [facility] 150 [place] [phone] Danya You, PA [address] [address] Isabel Beaulieu, OTR [facility] 150 [place] [address] 04/02/2024 3:15 PM CDT Therapy Visit [facility] 150 [place] [phone] Danya You, PA [address] [place] [address] [address] Charis Chacon, J[facility] [address] [place] [address] 04/02/2024 4:15 PM CDT Therapy Visit [address] [phone] Danya You PA [facility]0 [place] [address] [address] Delicia George, PT [address] [address] 04/09/2024 3:15 PM CDT Therapy Visit [address] [phone] Danya You, AMAIRANI [facility] [place] [address] [address] [address] Charis Chacon, RETAIL SALES CLERK [facility] [address] [place] [address] 04/09/2024 4:15 PM CDT Therapy Visit [address] [phone] Danya You, PA [facility]0 [place] [address] [address] [address] Delicia George, PT [address] [address] 04/15/2024 9:30 AM CDT Therapy Visit [address] [phone] Danya You, PA [facility] [place] [address] [address] [address] Danya Restrepo SLP 04/23/2024 2:30 PM CDT Therapy Visit [facility] [place] [facility] 150 [facility] [place] [address]14 Danya You, PA 2450 [facility] [address] [place] [address] Charis Chacon, [facility] [address] [place] [address] 06/23/2024 11:00 AM CDT Virtual Visit [facility] Mental Health & Addiction [facility] [address] [place] [phone] Kristin Vázquez, [facility] 6387 [place] [address] 06/30/2024 2:00 PM CDT Virtual Visit [facility] Mental Health & Addiction [facility] 6401 [place] [address] Kristin Vázquez, [facility] [address] [place] [address] [phone] documented as of this encounter Visit Diagnoses Not on filedocumented in this encounter Additional Health Concerns Assessment Noted Time PHQ-9 Depression Total Score: 0 06/23/20 21 4:11 PM CDT documented as of this encounter Care Teams Blockers Skiver Relationship Specialty Start Date End Date Yung Madrigal MD RETIRED PCP - Orthopaedics Orthopedics 08/26/12 01/20/24 Winston Villatoro OD [facility] [place] 701 [facility] [address] [place] [address] PCP - Ophthalmology Ophthalmology 02/11/13 Denise Woodson Ra, APRN INTERNAL INVESTIGATOR [address] [address] [address] PCP - General Family Practice 09/21/20 Denise Woodson Ra, APRN INTERNAL INVESTIGATOR [address] [address] [place] [address] Assigned PCP 07/17/20 Usha Simon APRN INTERNAL INVESTIGATOR 9 [facility], [place] [address] Nurse Practitioner Neurological Surgery 01/24/24 Dangelo Salinas MD [address] [place] [address] Neurology 01/27/24 documented as of this encounter
--- OUTSIDE RECORDS SUMMARY | 2024-02-02 22:34 | XMS_ITS | Encounter Summary ---
Author Name Unknown Organization [facility] Address [address] [place] [address]. [place] [address] Care Team Providers Care Group Exercise Class Instructor Name Role Phone Yung Madrigal MD Unavailable Unavailable Winston Villatoro OD Unavailable [phone] Denise Woodson Ra, APRN AERODYNAMIC CONSULTANT Unavailable [phone] Denise Woodson Ra, APRN AERODYNAMIC CONSULTANT Primary Care Provid er Usha Simon APRN AERODYNAMIC CONSULTANT Unavailable [phone]- [phone] Dangelo Salinas MD Unavailable Reason for Visit * Reason Comments Medication Refill Encounter Details Date Type Department Care Team (Late st Contact Info) Description 01/07/[address] [facility] [address] [place] [phone] Denise Woodson Ra, APRN AERODYNAMIC CONSULTANT [address] [place] [address] Medication Refill Social History Tobacco [...] as final attempt to schedule. Karla Villafanamount Zig Zag Spring Machine Operator * Telephone Encounter - Karla Morales - 01/17/2023 8:59 AM CDT LVM requesting a call back for an appt (physical). One more attempt will be made. Karla Dossunt Zig Zag Spring Machine Operator * Telephone Encounter - Arianna Lo - 01/10/2023 3:33 PM CDT Sent Letyanot message requesting a call back for an appt. Two more attempts will be made. Arianna Villafanamount Zig Zag Spring Machine Operator * Telephone Encounter - Leslie Mcclellan RN [...] 0 0 0 Leslie Mcclellan RN, BSN [facility] documented in this encounter Plan of Treatment Upcoming Encounters Date Type Department Care Team (Late st Contact Info) Description 02/03/2024 8:45 AM CDT Therapy Visit [facility] [address] [phone] Denise Woodson Ra, ORACLE APPLICATION CONSULTANT AERODYNAMIC CONSULTANT [address] [facility] [place] [address] Addis Rojas, PT [facility] [address] [place] [address] 02/04/2024 PRE VISIT [facility] [address] [phone] Raul Hoyos MD [address] [place] [address] [phone] *-*INCOMING RECORDS*-* 02/04/2024 11:00 AM CDT Virtual Visit [facility] [address] [phone] Raul Hoyos MD [address] [place] [address] [phone] 02/06/2024 8:30 AM CDT Office Visit [facility] [address] [place] [phone] Denise Woodson Ra, ORACLE APPLICATION CONSULTANT AERODYNAMIC CONSULTANT [address] [place] [address] 02/07/2024 2:00 PM CDT Therapy Visit [facility] [address] [phone] Danya You, PA 2450 [facility] [address] [place] [address] Charis Chacon, BOATBUILDER SUPERVISOR [facility] [address] [place] [address] 02/14/2024 12:45 PM CDT Therapy Visit [address] [phone] Danya You, PA 2450 [facility] [address] [place] [address] Isabel Beaulieu, OTR [address] [address] 02/14/2024 2:00 PM CDT Therapy Visit [address] [phone] Danya You, PA 8330 [facility] [address] 988734 Charis Chacon, JUAN [facility] [address] [place] [address] 02/14/2024 2:45 PM CDT Therapy Visit [address] 38[address]-288114 Danya You, PA [address] 686024 Maria Eugenia Nguyen, PT 2155 [place] [address] 02/17/2024 2:45 PM CDT Therapy Visit [address] [phone] Danya You PA [address] [place], [place] 187114 Aliya Kim, BOATBUILDER SUPERVISOR [address] [facility], [address] [place] [address] 02/19/2024 3:00 PM CDT Therapy Visit [facility] 150 [place] [address] Danya You PA [address] [place] [address] Isabel Beaulieu, OTR [facility] 150 [place] [address] 02/26/2024 2:15 PM CDT Therapy Visit [address] [phone] Danya You, AMAIRANI [address] [place] [address] Charis Chacon, JUAN [facility] [address] [place] [address] 02/26/2024 3:00 PM CDT Therapy Visit [facility] 150 [place] [address] Danya You, AMAIRANI [address] [address] Isabel Beaulieu, OTR FV [facility] 150 [place] [address] 02/27/2024 4:45 PM CDT Therapy Visit [facility] 150 [place] [phone] Danya You, AMAIRANI [address] [address] Vanessa Duggan, PT 03/05/2024 1:30 PM CDT Therapy Visit [address] [phone] Danya You, PA 2450 [facility] [address] [address] Isabel Beaulieu, OTR [address] [address] 03/05/2024 3:15 PM CDT Therapy Visit [address] [phone] Danya oYu, PA [facility] [address] [address] Charis Chacon, BOATBUILDER SUPERVISOR [facility] [address] [place] [address] 03/05/2024 4:15 PM CDT Therapy Visit [address] [phone] Danya You, PA [address] [address] Delicia George, PT [facility] 909 [place] [address] 03/11/2024 2:15 PM CDT Therapy Visit [address] [phone] Danya You, PA [address] [place] [address] Isabel Beaulieu, OTR [facility] [address] 03/11/2024 3:00 PM CDT Therapy Visit [address] [phone] Danya You PA [address] [address] Charis Chacon, [facility] [address] [place] [address] 03/11/2024 4:15 PM CDT Therapy Visit [address] [phone] Danya You PA [address] [address] Delicia George, PT [facility] [address] [place] [address] 03/17/2024 1:30 PM CDT Therapy Visit [facility] [address] [phone] Danya You, AMAIRANI [address] [place] [address] Isabel Beaulieu, OTR [facility] [address] [place] [address] 03/17/2024 2:30 PM CDT Therapy Visit [facility] 150 [place] [address] Danya You PA [address] [place] [address] Charis Chacon, JUAN [facility] [address] [place] [address] 03/17/2024 4:00 PM CDT Therapy Visit [address] [phone] Danya You, AMAIRANI SOTO [address] [place] [address] Delicia George, PT [facility] [address] [place] [address] 03/23/2024 10:30 AM CDT Office Visit [facility] [address] [place] [address] Denise Woodson Ra, ORACLE APPLICATION CONSULTANT [facility] [address] [place], [place] 4[address] 03/26/2024 1:30 PM CDT Therapy Visit [address] [phone] Danya You PA [address] [place] [address] Isabel Beaulieu, OTJah [address] [address] 03/26/2024 2:30 PM CDT Therapy Visit [address] [place] [address] Danya You, AMAIRANI [address] [place] [address]114 Charis Chacon, JUAN [facility] [address] [place] [address] 03/26/2024 3:30 PM CDT Therapy Visit [address] [phone] Danya You, PA [address] [address] Delicia George, PT [facility] SURGERY [address] 7213[address] 04/02/2024 2:15 PM CDT Therapy Visit [address] [phone] Danya You, PA 2450 [facility] [address] [place] [address] Isabel Beaulieu, OTR [address] [address] 04/02/2024 3:15 PM CDT Therapy Visit [address] [phone] Danya You, PA 2450 [facility] [address] [address] Charis Chacon, JUAN [facility] [address] [place] [address] 04/02/2024 4:15 PM CDT Therapy Visit [address] [address] Danya You, AMAIRANI [address] [place] [address] Delicia George, PT [address] [address] 04/09/2024 3:15 PM CDT Therapy Visit [address] [address] Danya You, AMAIRANI [address] [place] [address] Charis Chacon, BOATBUILDER SUPERVISOR [facility] [address] [place] [address] 04/09/2024 4:15 PM CDT Therapy Visit [address] [address] Danya You, PA [address] [place] [address] Delicia George, PT [address] 040265 04/15/2024 9:30 AM CDT Therapy Visit [address] [phone] Danya You, PA [address] [address] Danya Restrepo, BOATBUILDER SUPERVISOR 04/23/2024 2:30 PM CDT Therapy Visit [facility] Rehabilitation Services [facility] 150 [facility] [place] [address] Danya You, PA [address] [place] [address] Charis Chacon, JUAN [facility] [address] [place] [address] 06/23/2024 11:00 AM CDT Virtual Visit [facility] Mental Health & Addiction [place] [facility] [address] [place] [address] Kristin Vázquez, [facility] 6341 [place] [address] 06/30/2024 2:00 PM CDT Virtual Visit [facility] Mental Health & Addiction [place] [address] [place] [address] Kristin Vázquez, [facility] [address] [place] [address] documented as of this encounter Visit Diagnoses Diagnosis Moderate persistent asthma without complication Unspecified asthma documented in this encounter Additional Health Concerns Assessment Noted Time PHQ-9 Depression Total Score: 0 06/23/20 21 4:11 PM CDT documented as of this encounter Care Teams Group Exercise Class Instructor Relationship Specialty Start Date End Date Yung Madrigal MD RETIRED PCP - Orthopaedics Orthopedics 08/26/12 01/20/24 Winston Villatoro OD [facility] [place] 701 [facility] [address] [place] [address] PCP - Ophthalmology Ophthalmology 02/11/13 Denise Woodson Ra, APRN AERODYNAMIC CONSULTANT [address] [place] [address] PCP - General Family Practice 09/21/20 Denise Woodson Ra, APRN AERODYNAMIC CONSULTANT [address] [place] [address] Assigned PCP 07/17/20 Usha Simon APRN AERODYNAMIC CONSULTANT 9 [facility]121[place], [place] [address] Nurse Practitioner Neurological Surgery 01/24/24 Dangelo Salinas MD [address] [place] [address] Neurology 01/27/24 documented as of this encounter
--- OUTSIDE RECORDS SUMMARY | 2024-02-02 22:35 | XMS_ITS | Encounter Summary ---
Author Name Unknown Organization [facility] Address [address] [place] [address] Care Team Providers Care Disaster Or Damage Control Specialist Name Role Phone Yung Madrigal MD Unavailable Unavailable Winston Villatoro OD Unavailable Denise Woodson Ra, APRN REGIONAL FACILITIES MANAGER Unavailable +- [phone] Denise Woodson Ra, APRN REGIONAL FACILITIES MANAGER Primary Care Provid er Usha Simon MATERIAL ENGINEER REGIONAL FACILITIES MANAGER Unavailable +- [phone] Dangelo Salinas MD Unavailable Encounter Details Date Type Department Care Team (Late st Contact Info) Description 01/22/2022 Ajay Medical Advice [address] [address] Angelo Escobar Social History Tobacco [...] Description 02/03/2024 8:45 AM CDT Therapy Visit [address] [phone] Denise Woodson Ra, MATERIAL ENGINEER REGIONAL FACILITIES MANAGER [address] [place], [place] [phone] Addis Rojas, PT [facility] [address] [place] [address] 02/04/2024 PRE VISIT [facility] Neurology [address] [phone] Raul Hoyos MD [address] [place] [address] *-*INCOMING RECORDS*-* 02/04/2024 11:00 AM CDT Virtual Visit [facility] Neurology [address] [phone] Raul Hoyos MD [address] [place] [address]12[address] 02/06/2024 8:30 AM CDT Office Visit [facility] [address] [place] [phone] Denise Woodson Ra, MATERIAL ENGINEER REGIONAL FACILITIES MANAGER [address] [place], [place] [phone] 02/07/2024 2:00 PM CDT Therapy Visit [address] [phone] Danya You PA [address] [place] [address] Charis Chacon, JUAN [facility] [address] [place] [address] 02/14/2024 12:45 PM CDT Therapy Visit [address] [phone] Danya You, PA [address] [place] [address] Isabel Beaulieu OTJah [address] [address] 02/14/2024 2:00 PM CDT Therapy Visit [address] [phone] Danya You, PA [address] [place] [address] Charis Chacon, J[facility]AN [facility] [address] [place] [address] 02/14/2024 2:45 PM CDT Therapy Visit [address] [phone] Danya You, PA [address] [place] [address] Maria Eugenia Nguyen, PT [address] [place] [address] 02/17/2024 2:45 PM CDT Therapy Visit [address] [phone] Danya You PA [address] [place] [address] Aliya Kim, HEAVY EQUIPMENT RENTAL MANAGER [address] [facility], [address] [place] [address] 02/19/2024 3:00 PM CDT Therapy Visit [facility] [address] [place] [phone] Danya You PA [address] [place] [address] Isabel Beaulieu, OTR [facility] [address] [place] [address] 02/26/2024 2:15 PM CDT Therapy Visit [facility] [address] [place] [phone] Danya You, PA [address] [address] Charis Chacon, J[facility]AN [facility] [address] [place] [address] 02/26/2024 3:00 PM CDT Therapy Visit [facility] [address] [place] [phone] Danya You PA [address] [address] Isabel Beaulieu, OTR [facility] COBBLESABRAZO ARROWHEAD CAMPUSE [address] [place] [address] 02/27/2024 4:45 PM CDT Therapy Visit [facility] [address] [place] [phone] Danya You, PA [address] [place] [address] Vanessa Duggan, PT 03/05/2024 1:30 PM CDT Therapy Visit [address] [phone] Danya You, PA [address] [place] [address] Isabel Beaulieu, OTJah [address] [address] 03/05/2024 3:15 PM CDT Therapy Visit [address] [phone] Danya You, PA [address] 756134 Charis Chacon, [facility] [address] [place] [address] 03/05/2024 4:15 PM CDT Therapy Visit [address] [phone] Danya You, PA [address] [place] [address] 566334 Delicia George, PT [facility] [address] [place] [address] 03/11/2024 2:15 PM CDT Therapy Visit [address] [phone] Danya You, AMAIRANI 2450 [facility] [address] [address] Isabel Beaulieu, OTR [address] [address] 03/11/2024 3:00 PM CDT Therapy Visit [address] [phone] Danya You, PA [facility] [address] 925174 Charis Chacon, HEAVY EQUIPMENT RENTAL MANAGER [facility] [address] [place] [address] 03/11/2024 4:15 PM CDT Therapy Visit [address] [phone] Danya You, PA [facility] [address] 914[address] Delicia George, PT [facility] [address] [place] [address] 03/17/2024 1:30 PM CDT Therapy Visit [address] [phone] Danya You PA [facility] [address] [address] Isabel Beaulieu, OTR VALARIE [address] [address] 03/17/2024 2:30 PM CDT Therapy Visit [address] [phone] Danya You, PA [address] 880724 Charis Chacon, [facility] [address] [place] [address] 03/17/2024 4:00 PM CDT Therapy Visit [address] [phone] Danya You, PA [address] 294434 Delicia George, PT [facility] [address] [place] [address] 03/23/2024 10:30 AM CDT Office Visit [facility] [address] [place] [address] Denise Woodson Ra, MATERIAL ENGINEER [facility] [address] [place] [address] 03/26/2024 1:30 PM CDT Therapy Visit [address] [phone] Danya You, PA [facility] [address] 607[address] Isabel Beaulieu, OTR [facility] LYNNTONE 150 [facility] [place] [address] 03/26/2024 2:30 PM CDT Therapy Visit [facility] [address] [facility] [place] [address] Danya You, AMAIRANI [address] [place] [address] Charis Chacon, [facility] [address] [place] [address] 03/26/2024 3:30 PM CDT Therapy [facility] [address] [place] [address] Danya You, PA [address] [place] [address] Delicia George, PT [facility] [place] 629439 [place] [address] 04/02/2024 2:15 PM CDT Therapy Visit [facility] hospital[facility] [address] [place] [address] Danya You, PA [address] [place] [address] Isabel Beaulieu, OTR [facility] LYNNABRAZO ARROWHEAD CAMPUSE [address] [place] [address] 04/02/2024 3:15 PM CDT Therapy Visit [facility] [address] [place] [address] Danya You, PA [address] [place] [address] Charis Chacon SLP [facility] [address] [place] [address] 04/02/2024 4:15 PM CDT Therapy Visit [address] [phone] Danya You PA [address] [place] [address] Delicia George, PT [address] [address] 04/09/2024 3:15 PM CDT Therapy Visit [address] [address] Danya You, AMAIRANI [address] [place] [address] Charis Chacon, [facility] [address] [place] [address] 04/09/2024 4:15 PM CDT Therapy Visit [address] [address] Danya You, AMAIRANI [address] [place] [address] Delicia George, PT [address] [address] 04/15/2024 9:30 AM CDT Therapy Visit [facility] [address] [place] [phone] Danya You, PA [address] [place] [address] Danya Restrepo SLP 04/23/2024 2:30 PM CDT Therapy Visit [facility] [address] [place] [address] Danya You PA [address] [place] [address] Charis Chacon SLP [facility] [address] [place] [address] 06/23/2024 11:00 AM CDT Virtual Visit [facility] Mental Health & Addiction [facility] [address] [place] [phone] Kristin Vázquez, [facility] [address] [place] [address] 06/30/2024 2:00 PM CDT Virtual Visit [facility] Mental Health & Addiction [facility] [address] [place] [phone] Kristin Vázquez, [facility] [address] [place] [address] documented as of this encounter Visit Diagnoses Not on filedocumented in this encounter Additional Health Concerns Assessment Noted Time PHQ-9 Depression Total Score: 0 06/23/20 21 4:11 PM CDT documented as of this encounter Care Teams Disaster Or Damage Control Specialist Relationship Specialty Start Date End Date Yung Madrigal MD RETIRED PCP - Orthopaedics Orthopedics 08/26/12 01/20/24 Winston Villatoro OD [facility] [place] [address] [facility] [address] [place] [address] PCP - Ophthalmology Ophthalmology 02/11/13 Denise Woodson Ra, APRN REGIONAL FACILITIES MANAGER [address] [address] PCP - General Family Practice 09/21/20 Denise Woodson Ra, APRN REGIONAL FACILITIES MANAGER [address] [address] [address] Assigned PCP 07/17/20 Usha Simon APRN REGIONAL FACILITIES MANAGER [address] [place] [address] [address] Nurse Practitioner Neurological Surgery 01/24/24 Dangelo Salinas MD [address] [facility] [address] [address] Neurology 01/27/24 documented as of this encounter
--- OUTSIDE RECORDS SUMMARY | 2024-02-02 22:35 | XMS_ITS | Encounter Summary ---
Author Name Unknown Organization [facility] Address [address] [place] [address]. [place] [address] Care Team Providers Care Paediatrician Name Role Phone Yung Madrigal MD Unavailable Unavailable Winston Villatoro OD Unavailable [phone] Denise Woodson Ra, APRN BAND SAW RUNNER Unavailable [phone]- [phone] Denise Woodson Ra, APRN BAND SAW RUNNER Primary Care Provid er Usha Simon APRN BAND SAW RUNNER Unavailable [phone]- [phone] Dangelo Salinas MD Unavailable Encounter Details Date Type Department Care Team (Late st Contact Info) Description 06/13/2021 MyC Medical Advice [facility] [phone] [place] [phone] Denise Woodson Ra, APRN BAND SAW RUNNER [address] [place] [address] Insomnia, unspecified type Social History [...] refill on file. Prescription approved per [facility] protocol. Mary Caraballo RN on 06/13/2021 at 5:18 PM documented in this encounter Plan of Treatment Upcoming Encounters Date Type Department Care Team (Late st Contact Info) Description 02/03/2024 8:45 AM CDT Therapy Visit [address] [phone] Denise Woodson Ra, MANAGER E COMMERCE BAND SAW RUNNER [address] [place], [place] [phone] Addis Rojas, PT [facility] [address] [place], [place] [phone] 02/04/2024 PRE VISIT [facility] Neurology [address] [phone] Raul Hoyos MD [address] [place] [address] 004135 *-*INCOMING RECORDS*-* 02/04/2024 11:00 AM CDT Virtual Visit [facility] Neurology [address] [phone] Raul Hoyos MD [address] [place] [address]47[address] 02/06/2024 8:30 AM CDT Office Visit [facility] [address] [place] [phone] Denise Woodson Ra, MANAGER E [employer]ERCE B[employer] SAW RUNNER [address] [place] [address] 02/07/2024 2:00 PM CDT Therapy Visit [facility] [address] [place] [address] Danya You, PA [address] [place] [address] Charis Chacon, J[facility] [address] [place] [address] 02/14/2024 12:45 PM CDT Therapy Visit [address] [phone] Danya You, AMAIRANI [address] [place] [address] Isabel Beaulieu, OTR [address] [address] 02/14/2024 2:00 PM CDT Therapy Visit [address] [phone] Danya You, PA [address] [address] Charis Chacon, DEICER ELEMENT WINDER MACHINE [facility] [address] [place], [place] [address]36[address] 02/14/2024 2:45 PM CDT Therapy Visit [address] [phone] Danya You, AMAIRANI [address] [address] Maria Eugenia Nguyen, PT [address] [place] [address] 02/17/2024 2:45 PM CDT Therapy Visit [facility] [address] [place] [phone] Danya You, PA 2450 [facility] 213 [place] [address] Aliya Kim, DEICER ELEMENT WINDER MACHINE [address] [address] 02/19/2024 3:00 PM CDT Therapy Visit [facility] [address] [place] [address] Danya You, PA 2450 [facility] [address] [address] Isabel Beaulieu, OTR [address] [address] 02/26/2024 2:15 PM CDT Therapy Visit [facility] [address] [place] [address] Danya You, PA [address] [address] Charis Chacon, [facility] [address] [place] [address] 02/26/2024 3:00 PM CDT Therapy Visit [facility] [address] [place] [phone] Kenyatta, AMAIRANI [facility] J[facility] [address] [place] [address] Isabel Beaulieu, OTR FV E[facility] [address] [facility] [place] [address] 02/27/2024 4:45 PM CDT Therapy Visit [facility] [address] [place] [phone] Danya You PA [address] [place] [address] Vanessa Duggan, PT 03/05/2024 1:30 PM CDT Therapy Visit [facility] [address] [place] [phone] Dayna You PA [address] [place] [address] Isabel Beaulieu, OTR [facility] [address] [place] [address] 03/05/2024 3:15 PM CDT Therapy Visit [facility] [address] [place] [address] Danya You PA [address] [address] Charis Chacon, [facility] [address] [place] [address] 03/05/2024 4:15 PM CDT Therapy Visit [facility] [address] [place] [phone] Danya You PA [address] [place] [address] Delicia George, PT [address] [address] 03/11/2024 2:15 PM CDT Therapy Visit [address] [phone] Danya You, PA [address] [place] [address] Isabel Beaulieu, OTR [address] [address] 03/11/2024 3:00 PM CDT Therapy Visit [address] [phone] Danya You, PA [address] [address] Charis Chacon, [facility] [address] [place] [address] 03/11/2024 4:15 PM CDT Therapy Visit [address] [phone] Danya You, PA [address] [place] [address] Delicia George, PT [address] [address] 03/17/2024 1:30 PM CDT Therapy Visit [facility] [address] [place] [address] Danya You, AMAIRANI [address] [address] Isabel Beaulieu, OTR [address] [address] 03/17/2024 2:30 PM CDT Therapy Visit [address] [phone] Danya You, AMAIRANI [address] [address] Charis Chacon, [facility] [address] [place] [address] 03/17/2024 4:00 PM CDT Therapy Visit [address] [phone] Danya You, PA [address] [place] [address] Delicia George, PT [facility] [address] [address] 03/23/2024 10:30 AM CDT Office Visit [facility] [address] [place] [phone] Denise Woodson Ra, MANAGER E [employer]ERCE BAND SAW RUNNER [address] [place], [place] 48948[address] 03/26/2024 1:30 PM CDT Therapy Visit [facility] 150 [facility] [place] [phone] Danya You PA [address] [address] Isabel Beaulieu, OTR [facility] CO[facility]BL[facility] [address] [place] [address] 03/26/2024 2:30 PM CDT Therapy Visit [facility] [address] [place] [phone] Danya You, AMAIRANI [facility] [address] [address] Charis Chacon, [facility] [address] [place] [address] 03/26/2024 3:30 PM CDT Therapy Visit [facility] [address] [place] [address] Danya You, AMAIRANI [facility] [address] [address] Delicia George, PT [facility] [address] [address] 04/02/2024 2:15 PM CDT [facility] [address] [place] [address] Danya You PA [facility] [address] [address] Isabel Beaulieu, OTR [facility] [address] [place] [address] 04/02/2024 3:15 PM CDT Therapy Visit [facility] [place] [address] Danya You PA [address] [place] [address] Charis Chacon SLP [facility] [address] [place] [address] 04/02/2024 4:15 PM CDT Therapy Visit [address] [phone] Danya You, PA [address] [address] Delicia George, PT [facility] [address] [place] [address] 04/09/2024 3:15 PM CDT [facility] [phone] Danya You, PA [address] [address] [place] [address] Charis Chacon, JUAN [facility] [address] [place] [address] 04/09/2024 4:15 PM CDT Therapy Visit [facility] [address] [address] Danya You PA [address] [place] [address] Delicia George, PT [facility] [address] [place] [address] 04/15/2024 9:30 AM CDT Therapy Visit [address] [phone] Danya You, PA 2450 [facility] [address] [address] Danya Restrepo, DEICER ELEMENT WINDER MACHINE 04/23/2024 2:30 PM CDT Therapy Visit [address] [phone] Danya You, PA [address] [place], [place] [address] [address] [address] Charis Chacon, [facility] [address] [place] [address] 06/23/2024 11:00 AM CDT Virtual Visit [facility] Mental Health & Addiction [address] [phone] Kristin Vázquez, [facility] [address] [place] [address] 06/30/2024 2:00 PM CDT Virtual Visit [facility] Mental Health & Addiction [facility] [address] [place] [address] Kristin Vázquez, [facility] 4[address] [place] [address] documented as of this encounter Visit Diagnoses Diagnosis Insomnia, unspecified type documented in this encounter Additional Health Concerns Assessment Noted Time PHQ-9 Depression Total Score: 0 01/05/20 21 9:31 AM CDT documented as of this encounter Care Teams Paediatrician Relationship Specialty Start Date End Date Yung Madrigal MD RETIRED PCP - Orthopaedics Orthopedics 08/26/12 01/20/24 Winston Villatoro OD [facility] [place] [address] [place] [address] PCP - Ophthalmology Ophthalmology 02/11/13 Denise Woodson Ra, APRN BAND SAW RUNNER [address] [place] [address] PCP - General Family Practice 09/21/20 Denise Woodson Ra, APRN [employer] SAW RUNNER [address] [place] [address] Assigned PCP 07/17/20 Usha Simon APRN B[employer] SAW RUNNER 909 [facility]121[address]J [place] [address] Nurse Practitioner Neurological Surgery 01/24/24 Dangelo Salinas MD [address] [place] [address] Neurology 01/27/24 documented as of this encounter
--- OUTSIDE RECORDS SUMMARY | 2024-02-02 22:35 | XMS_ITS | Encounter Summary ---
Author Name Unknown Organization [place] Address [address] [place] [address]. [place] [address] Care Team Providers Care Silver Miner Name Role Phone Yung Madrigal MD Unavailable Unavailable Winston Villatoro OD Unavailable [phone] Denise Woodson Ra, APRN SAW OFFBEARER Unavailable [phone] Denise Woodson Ra, APRN SAW OFFBEARER Primary Care Provid er Usha Simon APRN SAW OFFBEARER Unavailable [phone] Dangelo Salinas MD Unavailable Reason for Visit * Reason Onset Date Comments Medication Request 04/20/2021 escitalopram (LEXAPRO) 10 MG tablet Encounter Details Date Type Department Care Team (Late st Contact Info) Description 04/20/2021 [facility] Medical Advice [facility] [address] [place] [address] Denise Woodson Ra, APRN SAW OFFBEARER [address] [place] [address] Medication Request (escitalopram (LEXAPRO)... Social [...] Description 02/03/2024 8:45 AM CDT Therapy Visit [address] [address] Denise Woodson Ra, INCOME AUDITOR SAW OFFBEARER [address] [facility] [place] [address] Addis Rojas, PT [facility] [address] [place] [address] 02/04/2024 PRE VISIT [facility] Neurology [address] [phone] Raul Hoyos MD [address] [place] [address] *-*INCOMING RECORDS*-* 02/04/2024 11:00 AM CDT Virtual Visit [facility] Neurology [address] [phone] Raul Hoyos MD [address] [place] [address] 02/06/2024 8:30 AM CDT Office Visit [facility] [address] [place] [phone] Denise Woodson Ra, INCOME AUDITOR SAW OFFBEARER [address] [place] [address] 02/07/2024 2:00 PM CDT Therapy Visit [address] [place] [address] Danya You, AMAIRANI [address] [place] [address] Charis Chacon, JUAN [facility] [address] [place] [address] 02/14/2024 12:45 PM CDT Therapy Visit [address] [phone] Danya You, AMAIRANI [address] [place] [address] Isabel Beaulieu, OTR [address] [address] 02/14/2024 2:00 PM CDT Therapy Visit [address] [phone] Danya You, PA [address] [place] [address] Charis Chacon, J[facility]AN [facility] [address] [place] [address] 02/14/2024 2:45 PM CDT Therapy Visit [address] [phone] Danya You, PA [address] [place] [address] Maria Eugenia Nguyen, PT [address] [place] [address] 02/17/2024 2:45 PM CDT [facility] 150 [facility] [place] [address] Danya You, AMAIRANI 2450 [facility] [address] [place] [address] Aliya Kim, GOLD CHARMER [address] [facility], [address] [place] [address] 02/19/2024 3:00 PM CDT Therapy Visit [facility] [address] [place] [address] Danya You, AMAIRANI [address] [facility] [address] [address] Isabel Beaulieu OTR [facility] [address] [place] [address] 02/26/2024 2:15 PM CDT Therapy Visit [facility] [address] [place] [phone] Danya You, PA [facility] [address] [address] Charis Chacon, JUAN [facility] [address] [place] [address] 02/26/2024 3:00 PM CDT Therapy Visit [facility] [address] [place] [address] Danya You, PA 2450 [facility] [address] [place] [address] Isabel Beaulieu OTR [facility] [address] [place] [address] 02/27/2024 4:45 PM CDT Therapy Visit [address] [phone] Danya You, PA 2450 [facility] [address] [place], [place] [address] Vanessa Duggan, PT 03/05/2024 1:30 PM CDT Therapy Visit [address] [phone] Danya You, AMAIRANI 24[address] [facility] [address] [address] Isabel Beaulieu OTJah [address] [address] 03/05/2024 3:15 PM CDT Therapy Visit [address] [phone] Danya You, PA [facility] [address] [address] Charis Chacon, JUAN [facility] [address] [place] [address] 03/05/2024 4:15 PM CDT Therapy Visit [address] [phone] Danya You, PA [address] [address] Delicia George, PT [facility] [address] [address] 03/11/2024 2:15 PM CDT Therapy Visit [address] [phone] Danya You, PA [address] [place] [address] Isabel Beaulieu, OTR [address] [address] 03/11/2024 3:00 PM CDT Therapy Visit [address] [phone] Dnaya You, PA [address] [place] [address] Charis Chacon, GOLD CHARMER [facility] [address] [place] [address] 03/11/2024 4:15 PM CDT Therapy Visit [address] [phone] Danya You, PA [address] [place] [address] Delicia George, PT [facility] [address] [place] [address] 03/17/2024 1:30 PM CDT Therapy Visit [address] [phone] Danya You, PA [address] [address] Isabel Beaulieu, OTR [address] [address] 03/17/2024 2:30 PM CDT Therapy Visit [address] [phone] Danya You, PA 2450 [facility] [address] [address] Charis Chacon, GOLD CHARMER [facility] [address] [place] [address] 03/17/2024 4:00 PM CDT Therapy Visit [address] [phone] Danya You, PA [address] 9[address] Delicia George, PT [facility] [address] [place] [address] 03/23/2024 10:30 AM CDT Office Visit [facility] [address] [place] [phone] Denise Woodson Ra, INCOME AUDITOR SAW OFFBEARER [address] [place], [place] [address] 03/26/2024 1:30 PM CDT Therapy Visit [address] [phone] Danya You, PA [address] [address] Isabel Beaulieu, OTR [facility] 150 [place] [address] 03/26/2024 2:30 PM CDT Therapy Visit [facility] [address] [place] [phone] Danya You, PA [address] [address] Charis Chacon, [facility] [address] [place] [address] 03/26/2024 3:30 PM CDT Therapy Visit [address] [phone] Danya You, PA [address] [address] Delicia George, PT [facility] [address] [address] 04/02/2024 2:15 PM CDT Therapy Visit [facility] [address] [place] [phone] Danya You, PA [address] [address] Isabel Beaulieu, OTR [facility] [address] [place] [address] 04/02/2024 3:15 PM CDT [facility] [address] [place] [address] Danya You PA [address] [place] [address] Charis Chacon SLP [facility] [address] [place] [address] 04/02/2024 4:15 PM CDT Therapy Visit [address] [address] Danya You PA [address] [place] [address] Delicia George, PT [address] 4256[address] 04/09/2024 3:15 PM CDT Therapy Visit [address] [address] Danya You, AMAIRANI [address] [place] [address] Charis Chacon, JUAN [facility] [address] [place] [address] 04/09/2024 4:15 PM CDT Therapy Visit [address] [address] Danya You PA [address] [place] [address] Delicia George, PT [address] [address] 04/15/2024 9:30 AM CDT Therapy Visit [facility] [address] [place] [address] Danya You PA [address] [place] [address] Danya Restrepo GOLD CHARMER 04/23/2024 2:30 PM CDT Therapy Visit [address] [phone] Danya You, PA [address] [place] [address] Charis Chacon SLP [facility] [address] [place] [address] 06/23/2024 11:00 AM CDT Virtual Visit [facility] Mental Health & Addiction [facility] [address] [place] [address] Kristin Vázquez, [facility] [address] [place] [address] 06/30/2024 2:00 PM CDT Virtual Visit [facility] Mental Health & Addiction [facility] [address] [place] [address] Kristin Vázquez, [facility] [address] [place] [address] documented as of this encounter Visit Diagnoses Diagnosis Generalized anxiety disorder Mild recurrent major depression (H24) Major depressive disorder, recurrent episode, mild documented in this encounter Additional Health Concerns Assessment Noted Time PHQ-9 Depression Total Score: 0 01/05/20 21 9:31 AM CDT documented as of this encounter Care Teams Silver Miner Relationship Specialty Start Date End Date Yung Madrigal MD RETIRED PCP - Orthopaedics Orthopedics 08/26/12 01/20/24 Winston Villatoro OD [facility] [place] [address] [place] [address] PCP - Ophthalmology Ophthalmology 02/11/13 Denise Woodson Ra INCOME AUDITOR SAW OFFBEARER [address] [place] [place] [id number] PCP - General Family Practice 09/21/20 Denise Woodson Ra, APRN SAW OFFBEARER [address] [place] [id number] Assigned PCP 07/17/20 Usha Simon APRN SAW OFFBEARER 909 [facility] [id number] [place] [address] Nurse Practitioner Neurological Surgery 01/24/24 Dnagelo Salinas MD [address] [place] [address] Neurology 01/27/24 documented as of this encounter
--- OUTSIDE RECORDS SUMMARY | 2024-02-02 22:35 | XMS_ITS | Encounter Summary ---
Author Name Unknown Organization [place] Address [address] [place] [address] Care Team Providers Care Typesetting Machine Operator/Tender Name Role Phone Yung Madrigal MD Unavailable Unavailable Winston Villatoro OD Unavailable [phone] Serum, Clara Garland MD Primary Care Provider Serum, Clara Garland MD Unavailable [phone] Denise Woodson Ra, APRN HIM DIRECTOR Unavailable + [phone] Denise Woodson Ra, APRN HIM DIRECTOR Primary Care Provid er Usha Simon APRN HIM DIRECTOR Unavailable [phone] Dangelo Salinas MD Unavailable Encounter Details Date Type Department Care Team (Late Contact Info) Description 06/16/2019 [facility] Medical Advice [address] [place] [address] Serum, Clara Garland MD [address] [place] [address] Social History Tobacco Use Types [...] Description 02/03/2024 8:45 AM CDT Therapy Visit [address] [phone] Denise Woodson Ra, RIVET STICKER HIM DIRECTOR [address] [place] [address] Addis Rojas, PT [facility] AMAIRANI [address] [place] [address] 02/04/2024 PRE VISIT [facility] Neurology [address] [phone] Raul Hoyos MD [address] [place] [address] *-*INCOMING RECORDS*-* 02/04/2024 11:00 AM CDT Virtual Visit [facility] Neurology [address] [phone] Raul Hoyos MD [address] [place] [address] 02/06/2024 8:30 AM CDT Office Visit [facility] [address] [place] [phone] Denise Woodson Ra, RIVET STICKER HIM DIRECTOR [address] [place] [address] 02/07/2024 2:00 PM CDT Therapy Visit [address] [phone] Danya You, AMAIRANI [facility] [address] [place] [address] Charis Chacon, JUAN [facility] [address] [place] [address] 02/14/2024 12:45 PM CDT Therapy Visit [address] [phone] Danya You, PA 2457 [facility] [address] [place] [address] Isabel Beaulieu OTR [address] [address] 02/14/2024 2:00 PM CDT Therapy Visit [address] [phone] Danya You, PA 2451 [facility] [address] [place] [address] Charis Chacon, JUAN [place] [address] [place] [address] 02/14/2024 2:45 PM CDT Therapy Visit [address] [phone] Danya You, PA 2459 [facility] [address] [place] [address] Maria Eugenia Nguyen, PT [address] [place] [address] 02/17/2024 2:45 PM CDT Therapy Visit [address] [phone] Danya You PA [address] [place] [address] Aliya Kim, TRANSPORTATION PLANNER [address] [facility], [address] [place] [address] 02/19/2024 3:00 PM CDT Therapy Visit [facility] [address] [place] [address] Danya You PA [address] [address] Isabel Beaulieu, OTR [facility] [address] [place] [address] 02/26/2024 2:15 PM CDT Therapy Visit [facility] [address] [place] [address] Danya You, AMAIRANI [address] [address] Charis Chacon, J[facility]AN [facility] [address] [place] [address] 02/26/2024 3:00 PM CDT Therapy Visit [facility] [address] [place] [address] Danya You, AMAIRANI [address] [address] Isabel Beaulieu, OTR [facility] [address] [place] [address] 02/27/2024 4:45 PM CDT Therapy Visit [facility] [address] [place] [address] Danya You, PA [address] [address] Vanessa Duggan, PT 03/05/2024 1:30 PM CDT Therapy Visit [address] [phone] Danya You, PA [address] [address] Isabel Beaulieu, OTR [address] [address] 03/05/2024 3:15 PM CDT Therapy Visit [address] [phone] Danya You, PA [address] [address] Charis Chacon, J[facility]AN [facility] [address] [place] [address] 03/05/2024 4:15 PM CDT Therapy Visit [address] [phone] Danya You, PA [address] [address] Delicia George, PT [facility] [address] [address] 03/11/2024 2:15 PM CDT Therapy Visit [facility] [address] [place] [address] Danya You PA [address] [address] Isabel Beaulieu, OTR [facility] [address] [place] [address] 03/11/2024 3:00 PM CDT Therapy Visit [facility] [address] [place] [address] Danya You, AMAIRANI [facility] [address] [address] Charis Chacon, [facility] [address] [place] [address] 03/11/2024 4:15 PM CDT Therapy Visit [facility] [address] [place] [address] Danya You, AMAIRANI [facility] [address] [address] Delicia George, PT [facility] [address] [address] 03/17/2024 1:30 PM CDT Therapy Visit [facility] [address] [place] [address] Danya You PA [facility] [address] [address] Isabel Beaulieu, OTR [facility] 150 [facility] [place] [address] 03/17/2024 2:30 PM CDT Therapy Visit [facility] [address] [place] [address] Danya You, PA [address] [address] Charis Chacon, J[facility]AN [facility] [address] [place] [address] 03/17/2024 4:00 PM CDT Therapy Visit [address] [phone] Danya You, PA [address] 8[address] Delicia George, PT [facility] [address] [place] [address] 03/23/2024 10:30 AM CDT Office Visit [facility] [address] [place] [address] Denise Woodson Ra, RIVET STICKER HIM DIRECTOR [address] [place] [address] 03/26/2024 1:30 PM CDT Therapy Visit [address] [phone] Danya You, PA [address] [address] Isabel Beaulieu, OTR [facility] [address] [place] [address] 03/26/2024 2:30 PM CDT Therapy Visit [facility] [address] [place] [address] Danya You, PA [address] [place] [address] Charis Chacon, TRANSPORTATION PLANNER [facility] [address] [place] [address] 03/26/2024 3:30 PM CDT Therapy Visit [address] [phone] Danya You, PA [address] [place] [address] 87[address] Delicia George, PT [facility] [address] [place] [address] 04/02/2024 2:15 PM CDT Therapy Visit [facility] [address] [place] [address] Danya You, PA [address] [place] [address] Isabel Beaulieu OTR [facility] [address] [place] [address] 04/02/2024 3:15 PM CDT Therapy Visit [facility] [address] [place] [address] Danya You, PA [address] [place] [address] Charis Chacon, JUAN [facility] [address] [place] [address] 04/02/2024 4:15 PM CDT Therapy Visit [address] [address] Danya You PA [address] [place] [address] Delicia George, PT [address] [address] 04/09/2024 3:15 PM CDT Therapy Visit [address] [address] Danya You PA [address] [place] [address] Charis Chacon, JUAN [facility] [address] [place] [address] 04/09/2024 4:15 PM CDT Therapy Visit [address] [address] Danya You PA [address] [place] [address] Delicia George, PT [address] [address] 04/15/2024 9:30 AM CDT Therapy Visit [address] [place] [address] Danya You, PA [address] [place] [address] Danya Restrepo SLP 04/23/2024 2:30 PM CDT Therapy Visit [facility] [address] [place] [address] Danya You PA [address] [place] [address] Charis Chacon, J[facility]AN [facility] [address] [place] [address] 06/23/2024 11:00 AM CDT Virtual Visit [facility] Mental Health & Addiction [facility]1 [place] [address] Kristin Vázquez, [facility] [address] [place] [address] 06/30/2024 2:00 PM CDT Virtual Visit [facility] Mental Health & Addiction [facility] [address] [place] [address] Kristin Vázquez, [facility] [address] [place] [address] documented as of this encounter Visit Diagnoses Not on filedocumented in this encounter Additional Health Concerns Assessment Noted Time PHQ-9 Depression Total Score: 0 06/15/20 19 7:09 PM CDT documented as of this encounter Care Teams Typesetting Machine Operator/Tender Relationship Specialty Start Date End Date Yung Madrigal MD RETIRED PCP - Orthopaedics Orthopedics 08/26/12 01/20/[address] [facility] [place] [address] [place] [address] PCP - Ophthalmology Ophthalmology 02/11/[address] [facility] [place] [address] [place] [address] PCP - General Internal Medicine 02/07/17 09/20/20 Denise Woodson Ra RIVET STICKER HIM DIRECTOR [address] [place] [address] PCP - General Family Practice 09/21/20 Clara Cornell MD [address] [place] [address] Assigned PCP 01/17/17 07/16/20 Denise Woodson Ra RIVET STICKER HIM DIRECTOR [address] [place] [address] Assigned PCP 07/17/20 Usha Simon APRN HIM DIRECTOR 909 [facility] [address] Nurse Practitioner Neurological Surgery 01/24/24 Dangelo Salinas MD [address] [address] Neurology 01/27/24 documented as of this encounter
--- OUTSIDE RECORDS SUMMARY | 2024-02-02 22:35 | XMS_ITS | Encounter Summary ---
Author Name Unknown Organization [facility] Address [address] [place] [address]. [place] [address] Care Team Providers Care Seamless Tube Mill Operator Name Role Phone Yung Madrigal MD Unavailable Unavailable Winston Villatoro OD Unavailable +-[phone] Denise Woodson Ra, APRN CAP LINING MACHINE OPERATOR Unavailable +[phone]- [phone] Denise Woodson Ra FRUIT INSPECTOR CAP LINING MACHINE OPERATOR Primary Care Provid er Usha Simon APRN CAP LINING MACHINE OPERATOR Unavailable +- [phone] Dangelo Salinas MD Unavailable Reason for Visit * Reason Onset Date Comments URI 09/21/2020 Encounter Details Date Type Department Care Team (Late st Contact Info) Description 09/21/2020 MyC Medical Advice [facility] [address] [place] [address] Denise Woodson Ra, APRN CAP LINING MACHINE OPERATOR [address] [place], [place] [id number] URI Social History Tobacco Use Types Packs/Day [...] COVID-19? No / Unsure 09/21/2020 12:04 PM HOME ENERGY RATER documented as of this encounter Miscellaneous Notes * Telephone Encounter - Kati Yang RN - 09/21/2020 10:54 AM CST Portable Internett message sent to patient. Kati Yang RN ENERGY RATER documented in this encounter Plan of Treatment Upcoming Encounters Date Type Department Care Team (Late st Contact Info) Description 02/03/2024 8:45 AM CDT Therapy Visit [facility] Rehabilitation Services [address] [address] Denise Woodson Ra, FRUIT INSPECTOR [facility] [address] [place], [place] [phone] Addis Rojas, PT [facility] [address] [place] [address] 02/04/2024 PRE VISIT [facility] Neurology [address] [phone] Raul Hoyos MD [address] [place] [phone] *-*INCOMING RECORDS*-* 02/04/2024 11:00 AM CDT Virtual Visit [facility] Neurology [address] [address] Raul Hoyos MD [address] [place] [address] 02/06/2024 8:30 AM CDT Office Visit [facility] [address] [place] [phone] Denise Woodson Ra, FRUIT INSPECTOR CAP LINING MACHINE OPERATOR [address] [facility] [place], [place] [phone] 02/07/2024 2:00 PM CDT Therapy Visit [facility] [address] [place] [address] Danya You, AMAIRANI 2450 [facility] [address] [place] [address] Charis Chacon, J[facility]AN [facility] [address] [place] [address] 02/14/2024 12:45 PM CDT Therapy Visit [address] [phone] Danya You, AMAIRANI 2450 [facility] [address] [place] [address] Isabel Beaulieu, OTR [facility] 150 [place] [address] 02/14/2024 2:00 PM CDT Therapy Visit [facility] [address] [place] [address] Danya You, PA 2450 [facility] [address] [place] [address] Charis Chacon, J[facility]AN [facility] [address] [place] [address] 02/14/2024 2:45 PM CDT Therapy Visit [facility] [address] [place] [address] Danya You PA [address] [place] [address] Maria Eugenia Nguyen, PT 2155 [place] [address] 02/17/2024 2:45 PM CDT Therapy Visit [facility] [address] [place] [address] Danya You, PA [address] [place] [address] Aliya Kim, AUTO TOP MECHANIC [address] [address] 02/19/2024 3:00 PM CDT Therapy Visit [address] [address] Danya You, PA 2450 [facility] [address] [place] [address] Isabel Beaulieu, OTR [address] [address] 02/26/2024 2:15 PM CDT Therapy Visit [address] [phone] Danya You, PA [address] [place] [address] Charis Chacon, [facility] [address] [place] [address] 02/26/2024 3:00 PM CDT Therapy Visit [address] [address] Danya You, PA [address] [place] [address] Isabel Beaulieu, OTR [facility] 150 [place] [address] 02/27/2024 4:45 PM CDT Therapy Visit [facility] [address] [place] [address] Danya You, PA [address] [address] Vanessa Duggan, PT 03/05/2024 1:30 PM CDT Therapy Visit [facility] [address] [place] [address] Danya You, AMAIRANI [address] [address] Isabel Beaulieu, OTR [facility] [address] [place] [address] 03/05/2024 3:15 PM CDT Therapy Visit [facility] [address] [place] [address] Danya You, PA [address] 9[address] Charis Chacon, [facility] [address] [place] [address] 03/05/2024 4:15 PM CDT Therapy Visit [facility] [address] [place] [address] Danya You PA [address] [place] [address] Delicia George, PT [address] [address] 03/11/2024 2:15 PM CDT Therapy Visit [facility] [address] [place] [address] Danya You, AMAIRANI [address] [address] Isabel Beaulieu OTR [facility] [address] [place] [address] 03/11/2024 3:00 PM CDT Therapy Visit [address] [phone] Danya You, PA [address] [address] Charis Chacon, [facility] [address] [place] [address] 03/11/2024 4:15 PM CDT Therapy Visit [facility] [address] [place] [address] Danya You, PA [address] [address] Delicia George, PT [facility] [address] [place] [address] 03/17/2024 1:30 PM CDT Therapy Visit [address] [address] Danya [place], [place] [address] [address] Isabel Beaulieu OTJah [address] [address] 03/17/2024 2:30 PM CDT Therapy Visit [address] [address] [place] [address] [address] Charis Chacon, [facility] [address] [place] [address] 03/17/2024 4:00 PM CDT Therapy Visit [address] [phone] Danya You, PA [address] [place] [address] Delicia George, PT [facility] [address] [place] [address] 03/23/2024 10:30 AM CDT Office Visit [facility] [address] [place] [address] Denise Woodson Ra, FRUIT INSPECTOR [facility] [address] [place] [address] 03/26/2024 1:30 PM CDT Therapy Visit [address] [phone] Danya You, AMAIRANI [address] [place] [address] Isabel Beaulieu, OTR [address] [address] 03/26/2024 2:30 PM CDT Therapy Visit [address] [phone] Danya You, AMAIRANI [address] [address] Charis Chacon, [facility] [address] [place] [address] 03/26/2024 3:30 PM CDT Therapy Visit [address] [address] Danya You, PA [address] [place] [address] Delicia George, PT [facility] [address] [place] [address] 04/02/2024 2:15 PM CDT Therapy Visit [address] [phone] Danya You, PA [address] [place] [address] Isabel Beaulieu, OTR [facility] 150 [place] [address] 04/02/2024 3:15 PM CDT Therapy Visit [facility] [address] [place] [address] Danya You, AMAIRANI [address] [address] Charis Chacon, [facility] [address] [place] [address] 04/02/2024 4:15 PM CDT Therapy Visit [address] [phone] Danya You, PA [address] [address] Delicia George, PT [facility] [address] [place] [address] 04/09/2024 3:15 PM CDT Therapy Visit [address] [phone] Danya You, PA 2450 [facility] [address] [address] Charis Chacon, [facility] [address] [place] [address] 04/09/2024 4:15 PM CDT Therapy Visit [address] [phone] Danya You PA [address] [place] [address] Delicia George, PT [facility] [address] [place] [address] 04/15/2024 9:30 AM CDT Therapy Visit [facility] [address] [place] [address] Danya You, PA [address] [place] [address] Danya Restrepo, AUTO TOP MECHANIC 04/23/2024 2:30 PM CDT Therapy Visit [address] [address] Danya You PA [address] [place] [address] hCaris Chacon, [facility] [address] [place] [address] 06/23/2024 11:00 AM CDT Virtual Visit [facility] Mental Health & Addiction [facility] [place] 4[address] [place] [address] Kristin Vázquez, [facility] [address] [place] [address] 06/30/2024 2:00 PM CDT Virtual Visit [facility] Mental [facility] & Addiction [facility] 6401 [place] [address] Kristin Vázquez, [facility] [address] [place] [address] documented as of this encounter Visit Diagnoses Not on filedocumented in this encounter Additional Health Concerns Assessment Noted Time PHQ-9 Depression Total Score: 0 06/15/20 19 7:09 PM CDT documented as of this encounter Care Teams Seamless Tube Mill Operator Relationship Specialty Start Date End Date Yung Madrigal MD RETIRED PCP - Orthopaedics Orthopedics 08/26/12 01/20/24 Winston Villatoro, OD [facility] [place] [address] [place] [address] PCP - Ophthalmology Ophthalmology 02/11/13 Denise Woodson Ra, APRN CAP LINING MACHINE OPERATOR [address] [place] [address] PCP - General Family Practice 09/21/20 Denise Woodson Ra, APRN CAP LINING MACHINE OPERATOR [address] [place] [address] Assigned PCP 07/17/20 Usha Simon APRN CAP LINING MACHINE OPERATOR 909 [facility]121[address]J [place] [address] Nurse Practitioner Neurological Surgery 01/24/24 Dangelo Salinas MD [address] [place], [place] [address] Neurology 01/27/24 documented as of this encounter
--- OUTSIDE RECORDS SUMMARY | 2024-02-02 22:35 | XMS_ITS | Encounter Summary ---
Author Name Unknown Organization [place] Address [address] [place] [address] Care Team Providers Care Print Support Specialist Name Role Phone Yung Madrigal MD Unavailable Unavailable Winston Villatoro OD Unavailable [phone] Denise Woodson Ra, APRN PITCH FLAKER Unavailable + [phone] Denise Woodson Ra, APRN PITCH FLAKER Primary Care Provid er Usha Simon SOFTWARE QUALITY TEST ENGINEER PITCH FLAKER Unavailable +- [phone] Dangelo Salinas MD Unavailable Encounter Details Date Type Department Care Team (Late Contact Info) Description 12/30/2020 MyC Medical [facility] [address] [address] Jessica Phipps, CONSTRUCTION REP Social History Tobacco Use Types Packs/Day Years [...] Description 02/03/2024 8:45 AM CDT Therapy Visit [address] [phone] Denise Woodson Ra, SOFTWARE QUALITY TEST ENGINEER PITCH FLAKER [address] [facility] [place] [address] Addis Rojas, PT [facility] [address] [place], [place] [phone] 02/04/2024 PRE VISIT [facility] Neurology [address] [address] Raul Hoyos MD [address] [place] [phone] *-*INCOMING RECORDS*-* 02/04/2024 11:00 AM CDT Virtual Visit [facility] Neurology [address] [address] Raul Hoyos MD [address] [place] [address] 02/06/2024 8:30 AM CDT Office Visit [facility] [address] [place] [phone] Denise Woodson Ra, SOFTWARE QUALITY TEST ENGINEER PITCH FLAKER [address] [place] [address] 02/07/2024 2:00 PM CDT Therapy Visit [address] [phone] Danya You, PA [address] [place], [place] [address] Charis Chacon, [facility] [address] [place] [address] 02/14/2024 12:45 PM CDT Therapy Visit [address] [phone] Danya You, PA [address] [place] [address] Isabel Beaulieu, OTR [address] [address] 02/14/2024 2:00 PM CDT Therapy Visit [address] [phone] Danya You, AMAIRANI [address] [place] [address] Charis Chacon, [facility] [address] [place] [address] 02/14/2024 2:45 PM CDT Therapy Visit [address] [phone] Danya You, PA [address] [place] [address] Maria Eugenia Nguyen, PT [address] [place] [address] 02/17/2024 2:45 PM CDT Therapy Visit [address] [phone] Danya You, AMAIRANI [address] [facility] [address] [place] [address] Aliya Kim, BRICK SHADER [address] [facility], [address] [place] [address] 02/19/2024 3:00 PM CDT Therapy Visit [facility] 150 [place] [address] Danya You, PA [address] MB [address] [place] [address] Isabel Beaulieu, JAIMIE SHEPPARD [address] [address] 02/26/2024 2:15 PM CDT Therapy Visit [address] [phone] Danya You, PA [address] [address] Charis Chacon, [facility] [address] [place] [address] 02/26/2024 3:00 PM CDT Therapy Visit [facility] 150 [place] [address] Danya You, PA [address] [address] Isabel Beaulieu, OTR [facility] [address] [address] 02/27/2024 4:45 PM CDT Therapy Visit [address] [place] [address] Danya You, PA [address] [place] [address] Vanessa Duggan, PT 03/05/2024 1:30 PM CDT Therapy Visit [address] [phone] Danya You, PA [address] [address] Isabel Beaulieu OTJah [address] [address] 03/05/2024 3:15 PM CDT Therapy Visit [address] [phone] Danya You, PA [address] [address] Charis Chacon, [facility] [address] [place] [address] 03/05/2024 4:15 PM CDT Therapy Visit [address] [phone] Danya You, PA [address] [address] Delicia George, PT [facility] [address] [place] [address] 03/11/2024 2:15 PM CDT Therapy Visit [address] [address] Danya You PA 2450 [facility] [address] 3[address] Isabel Beaulieu, OTR [facility] [address] [place] [address] 03/11/2024 3:00 PM CDT Therapy Visit [facility] 150 [place] [address] Danya You, AMAIRANI 2450 [facility] [address] [address] Charis Chacon, [facility] [address] [place] [address] 03/11/2024 4:15 PM CDT Therapy Visit [facility] 150 [place] [address] Danya You, AMAIRANI [facility] [address] [address] Delicia George, PT [facility] [address] [place] [address] 03/17/2024 1:30 PM CDT Therapy Visit [facility] [address] [place] [address] Danya You, AMAIRANI [facility] [address] [address] Isabel Beaulieu, [facility] [address] [place] [address] 03/17/2024 2:30 PM CDT Therapy Visit [address] [phone] Danya You, PA 2450 [facility] [address] [place] [address] Charis Chacon, [facility] [address] [place] [address] 03/17/2024 4:00 PM CDT Therapy Visit [address] [phone] [place] [address] [address] Delicia George, PT [facility] [address] [place] [address] 03/23/2024 10:30 AM CDT Office Visit [facility] [address] [place] [address] Denise Woodson Ra, SOFTWARE QUALITY TEST ENGINEER [facility] [address] [place] [address] 03/26/2024 1:30 PM CDT Therapy Visit [address] [phone] Danya You, AMAIRANI [address] [address] Isabel Beaulieu, JAIMIE [address] [address] 03/26/2024 2:30 PM CDT Therapy Visit [address] [phone] Danya You, AMAIRANI [address] [place] [address] Charis Chacon, [facility] [address] [place] [address] 03/26/2024 3:30 PM CDT Therapy Visit [address] [phone] Danya You, PA [address] [place] [address] Delicia George, PT [facility] [address] [place] [address] 04/02/2024 2:15 PM CDT Therapy Visit [address] [address] Danya You, PA [address] [place] [address] Isabel Beaulieu OTR [address] [address] 04/02/2024 3:15 PM CDT Therapy Visit [address] [address] Danya You, PA [address] [place] [address] Charis Chacon, [facility] [address] [place] [address] 04/02/2024 4:15 PM CDT Therapy Visit [address] [address] Danya You, AMAIRANI [address] [place] [address] Delicia George, PT [address] [address] 04/09/2024 3:15 PM CDT Therapy Visit [address] [address] Danya You, PA [address] [place] [address] Charis Chacon, [facility] [address] [place] [address] 04/09/2024 4:15 PM CDT Therapy Visit [address] [address] Danya You, PA 2450 [facility] [address] [place] [address] Delicia George, PT [address] [address] 04/15/2024 9:30 AM CDT Therapy Visit [address] [address] Danya You, PA [address] [place] [address] Danya Restrepo SLP 04/23/2024 2:30 PM CDT Therapy Visit [facility] Rehabilitation Services [facility] 150 [place] [address] Danya You, PA [address] [place] [address] Charis Chacon, [facility] [address] [place] [address] 06/23/2024 11:00 AM CDT Virtual Visit [facility] Mental Health & Addiction [facility] [address] [place] [address] Kristin Vázquez, [facility] 6341 [place] [address] 06/30/2024 2:00 PM CDT Virtual Visit [facility] Mental Health & Addiction [address] [address] Kristin Vázquez, [facility] [address] [place] [address] documented as of this encounter Visit Diagnoses Not on filedocumented in this encounter Additional Health Concerns Assessment Noted Time PHQ-9 Depression Total Score: 0 06/15/20 19 7:09 PM CDT documented as of this encounter Care Teams Print Support Specialist Relationship Specialty Start Date End Date Yung Madrigal MD RETIRED PCP - Orthopaedics Orthopedics 08/26/12 01/20/24 Winston Villatoro OD [facility] [place] [address] [place] [address] PCP - Ophthalmology Ophthalmology 02/11/13 Denise Woodson Ra, APRN PITCH FLAKER [address] [address] JUL[address] [place] [address] PCP - General Family Practice 09/21/20 Denise Woodson Ra, APRN PITCH FLAKER [address] [place] [address] Assigned PCP 07/17/20 Usha Simon APRN PITCH FLAKER 909 [facility] [address] Nurse Practitioner Neurological Surgery 01/24/24 Dangelo Salinas MD [address] [place] [address] Neurology 01/27/24 documented as of this encounter
--- OUTSIDE RECORDS SUMMARY | 2024-02-02 22:35 | XMS_ITS | Encounter Summary ---
Author Name Unknown Organization [facility] Address [address] [place] [address]. [place] [address] Care Team Providers Care Replanting Machine Operator Name Role Phone Yung Madrigal MD Unavailable Unavailable Winston Villatoro OD Unavailable [phone] Denise Woodson Ra, APRN DIESEL PILE DRIVER OPERATOR Unavailable [phone] Denise Woodson Ra CAPSULE INSPECTOR DIESEL PILE DRIVER OPERATOR Primary Care Provid er Usha Simon CAPSULE INSPECTOR DIESEL PILE DRIVER OPERATOR Unavailable [phone] Dangelo Salinas MD Unavailable Reason for Visit * Reason Onset Date Comments MyChart Communication 06/08/2021 Abdominal pain Encounter Details Date Type Department Care Team (Late st Contact Info) Description 06/08/2021 MyC Medical Advice [facility] [address] [place] [address] Denise Woodson Ra, APRN DIESEL PILE DRIVER OPERATOR [address] [place] [address] MyChart Communication (Abdominal pain) Social [...] Description 02/03/2024 8:45 AM CDT Therapy Visit [address] [phone] Denise Woodson Ra, CAPSULE INSPECTOR DIESEL PILE DRIVER OPERATOR [address] [place], [place] [id number] Addis Rojas, PT [facility] [address] [place] [address] 02/04/2024 PRE VISIT [facility] Neurology [address] [phone] Raul Hoyos MD [address] [place] [address] *-*INCOMING RECORDS*-* 02/04/2024 11:00 AM CDT Virtual Visit [facility] Neurology [address] [phone] Raul Hoyos MD [address] [place] [address] 02/06/2024 8:30 AM CDT Office Visit [facility] [address] [place] [phone] Denise Woodson Ra, CAPSULE INSPECTOR DIESEL PILE DRIVER OPERATOR [address] [place], [place] 16490[address] 02/07/2024 2:00 PM CDT Therapy Visit [address] [phone] Danya You, PA [address] [place] [address] Charis Chacon, JUAN [facility] [address] [place] [address] 02/14/2024 12:45 PM CDT Therapy Visit [address] [phone] Danya You, PA [address] [place] [address] Isabel Beaulieu OTR [address] [address] 02/14/2024 2:00 PM CDT Therapy Visit [address] [address] Danya You, PA [address] [place] [address] Charis Chacon, JUAN [place] [address] [place] [address] 02/14/2024 2:45 PM CDT Therapy Visit [address] [address] Danya You, PA [address] [place], [place] 8[address] Maria Eugenia Nguyen, PT 2[address] [place] [address] 02/17/2024 2:45 PM CDT Therapy Visit [address] [phone] Danya You PA [address] CHARLES 213 [place] [address] Aliya Kim, HANDLING TECH [address] [facility], [address] [place] [address] 02/19/2024 3:00 PM CDT Therapy Visit [facility] [address] [place] [phone] Danya You PA [address] [address] Isabel Beaulieu, OTR [facility] [address] [place] [address] 02/26/2024 2:15 PM CDT [facility] [address] [place] [phone] Danya You, AMAIRANI [address] [address] Charis Chacon, JUAN [facility] [address] [place] [address] 02/26/2024 3:00 PM CDT Therapy Visit [facility] [address] [place] [address] Danya You, AMAIRANI [address] CHARLES [address] [place] [address] Isabel Beaulieu, OTR [facility] [address] [place] [address] 02/27/2024 4:45 PM CDT Therapy Visit [facility] [address] [place] [address] Danya You, PA [address] [place] [address] Vanessa Duggan, PT 03/05/2024 1:30 PM CDT Therapy Visit [address] [phone] Danya You, PA [address] [address] Isable Beaulieu OTJah [address] [address] 03/05/2024 3:15 PM CDT Therapy Visit [address] [phone] Danya You, PA [address] [address] Charis Chacon, J[facility]AN [facility] [address] [place] [address] 03/05/2024 4:15 PM CDT Therapy Visit [address] [address] Danya You, PA [address] 491084 Delicia George, PT [facility] [address] [address] 03/11/2024 2:15 PM CDT Therapy Visit [address] [phone] Danya You, AMAIRANI [address] [address] Isabel eBaulieu, OTR FV [address] [address] 03/11/2024 3:00 PM CDT Therapy Visit [address] [phone] Danya You, AMAIRANI [facility] [address] [address] Charis Chacon, JUAN [facility] [address] [place] [address] 03/11/2024 4:15 PM CDT Therapy Visit [address] [phone] Danya You, AMAIRANI [facility] [address] [address] Delicia George, PT [facility] [address] [place] [address] 03/17/2024 1:30 PM CDT Therapy Visit [address] [phone] Danya You PA [facility] [address] [address] Isabel Beaulieu, OTR [facility] [address] [place] [address] 03/17/2024 2:30 PM CDT Therapy Visit [facility] [address] [place] [phone] Danya You, PA [address] [address] Charis Chacon, J[facility]AN [facility] [address] [place] [address] 03/17/2024 4:00 PM CDT Therapy Visit [address] [phone] Danya You, PA [address] 165484 Delicia George, PT [facility] [address] [place] [address] 939[address] 03/23/2024 10:30 AM CDT Office Visit [facility] [address] [place] [address] Denise Woodson Ra, CAPSULE INSPECTOR DIESEL PILE DRIVER OPERATOR [address] [place] [address] 03/26/2024 1:30 PM CDT Therapy Visit [address] [phone] Danya You, PA 2450 [facility] [address] [address] Isabel Beaulieu, OTR [facility] 150 [place] [address] 03/26/2024 2:30 PM CDT Therapy Visit [facility] [address] [place] [phone] Danya You, PA [address] [place] [address] Charis Chacon, [facility] [address] [place] [address] 03/26/2024 3:30 PM CDT Therapy Visit [address] 74[address]14 Danya You, PA [address] [place] [address] 6[address]304 Delicia George, PT [facility] [address] [place] [address] 04/02/2024 2:15 PM CDT Therapy Visit [address] [phone] Danya You, PA [address] [place] [address] Isabel Beaulieu, OTR VALARIE TILINELuis [facility] [address] [place] [address] 04/02/2024 3:15 PM CDT Therapy Visit [facility] [address] [place] [address] Danya You, PA [address] [place] [address] Charis Chacon, [facility] [address] [place] [address] 04/02/2024 4:15 PM CDT Therapy Visit [address] [address] Danya You, PA [address] [facility] [facility] [address] [place] [address] Delicia George, PT [address] [address] 04/09/2024 3:15 PM CDT Therapy Visit [address] [address] Danya You, PA [address] [facility] [facility] [address] MB [address] [place] [address] Charis Chacon, [facility] [address] [place] [address] 04/09/2024 4:15 PM CDT Therapy Visit [address] [address] Danya You, PA [address] MB [address] [place] [address] Delicia George, PT [address] [address] 04/15/2024 9:30 AM CDT [facility] [address] [place] [address] Danya You, PA [address] [place] [address] Danya Restrepo SLP 04/23/2024 2:30 PM CDT Therapy Visit [facility] [address] [place] [address] Danya You, PA [address] [place] [address] Charis Chacon, J[facility]AN [facility] [address] [place] [address] 06/23/2024 11:00 AM CDT Virtual Visit [facility] Mental Health & Addiction [facility] [address] [place] [address] Kristin Vázquez, [facility] [address] [place] [address] 06/30/2024 2:00 PM CDT Virtual Visit [facility] [place] [address] [place] [address] Kristin Vázquez, [facility] [address] [place] [address] documented as of this encounter Visit Diagnoses Not on filedocumented in this encounter Additional Health Concerns Assessment Noted Time PHQ-9 Depression Total Score: 0 01/05/20 21 9:31 AM CDT documented as of this encounter Care Teams Replanting Machine Operator Relationship Specialty Start Date End Date Yung Madrigal MD RETIRED PCP - Orthopaedics Orthopedics 08/26/12 01/20/24 Winston Villatoro OD [facility] [place] [address] [facility] [address] [place], [place] [id number] PCP - Ophthalmology Ophthalmology 02/11/13 Denise Woodson Ra, APRN DIESEL PILE DRIVER OPERATOR [address] [place] [id number] PCP - General Family Practice 09/21/20 Denise Woodson Ra, APRN DIESEL PILE DRIVER OPERATOR [address] [place] [address] Assigned PCP 07/17/20 Usha Simon APRN DIESEL PILE DRIVER OPERATOR 9 [facility], [place] [address] Nurse Practitioner Neurological Surgery 01/24/24 Dangelo Salinas MD [address] [facility] [address] [place] [address] Neurology 01/27/24 documented as of this encounter
--- OUTSIDE RECORDS SUMMARY | 2024-02-02 22:35 | XMS_ITS | Encounter Summary ---
Author Name Unknown Organization [facility] Address [address] [place] [address] Care Team Providers Care Chemist Helper Name Role Phone Yung Madrigal MD Unavailable Unavailable Winston Villatoro OD Unavailable [phone] Serum, Clara Garland MD Primary Care Provider Serum, Clara Garland MD Unavailable [phone] Denise Woodson Ra, APRN KEYBOARDING CLERK Unavailable + [phone] Denise Woodson Ra, APRN KEYBOARDING CLERK Primary Care Provid er Usha Siomn APRN KEYBOARDING CLERK Unavailable [phone] Dangelo Salinas MD Unavailable Reason for Visit * Reason Onset Date Comments LAB REQUEST 06/16/2019 Encounter Details Date Type Department Care Team (Late st Contact Info) Description 06/16/2019 MyC Medical Advice [facility] [address] [facility] [address] [place] [address] Serum, Clara Garland MD [address] [place] [address] LAB REQUEST Social History Tobacco [...] Description 02/03/2024 8:45 AM CDT Therapy Visit [address] [phone] Denise Woodson Ra, EQUINE VET KEYBOARDING CLERK [address] [place], [place] 45100[address] Addis Rojas, PT [facility] [address] [place] [address] 02/04/2024 PRE VISIT [facility] Neurology [address] [phone] Raul Hoyos MD [address] [place] [address] *-*INCOMING RECORDS*-* 02/04/2024 11:00 AM CDT Virtual Visit [facility] Neurology [address] [address] Raul Hoyos MD [address] [place] [address] 02/06/2024 8:30 AM CDT Office Visit [facility] [address] [place] [address] Denise Woodson Ra, EQUINE VET KEYBOARDING CLERK [address] [place] [address] 02/07/2024 2:00 PM CDT Therapy Visit [facility] 150 [place] [address] Danya You, PA 2450 [facility] 213 [place] [address] Charis Chacon, [facility] [address] [place], [place] [address] 02/14/2024 12:45 PM CDT Therapy Visit [address] [phone] Danya You, PA [address] 317024 Isabel Beaulieu, JAIMIE [address] [address] 02/14/2024 2:00 PM CDT Therapy Visit [address] [phone] Danya You, PA [address] 468[address] Charis Chacon, JUAN [facility] [address] [place], [place] [address] 02/14/2024 2:45 PM CDT Therapy Visit [address] [address] Danya You PA [address] [place] [address] Maria Eugenia Nguyen, PT 2155 [place] [address] 02/17/2024 2:45 PM CDT Therapy Visit [address] [address] Danya You, PA [address] [place] [address] Aliya Kim, TABLE INSPECTOR [address] [facility], [address] [place] [address] 02/19/2024 3:00 PM CDT Therapy Visit [address] [address] Danya You, PA [address] [address] Isabel Beaulieu, OTR [address] [address] 02/26/2024 2:15 PM CDT Therapy Visit [address] [address] Danya You, PA [address] [address] Charis Chacon, JUAN [facility] [address] [place] [address] 02/26/2024 3:00 PM CDT Therapy [facility] 150 [facility] [place] [address] Danya You, PA 2450 [facility] JIE [address] [place] [address] sIabel Beaulieu, OTR FV JENALuis [facility]E [address] [place] [address] 02/27/2024 4:45 PM CDT Therapy Visit [facility] 150 [place] [address] Danya You, PA 2450 [facility] JIE [address] [place] [address] Vanessa Duggan, PT 03/05/2024 1:30 PM CDT Therapy Visit [facility] [address] [place] [address] Danya You, AMAIRANI [address] [address] [address] Isabel Beaulieu, OTR [facility] [address] [place] [address] 03/05/2024 3:15 PM CDT Therapy Visit [facility] 150 [place] [address] Danya You, AMAIRANI [address] [place] [address] [address] Charis Chacon, J[facility]AN [facility] [address] [place] [address] 03/05/2024 4:15 PM CDT Therapy Visit [facility] [address] [place] [address] Danya You, AMAIRANI [address] 305014 Delicia George, PT [address] 861315 03/11/2024 2:15 PM CDT Therapy Visit [facility] [address] [place] [address] Danya You, PA 2450 [facility] [address] [address] Isabel Beaulieu, JAIMIE [address] [address] 03/11/2024 3:00 PM CDT Therapy Visit [address] [phone] Danya You, PA [facility] [address] [address] Charis Chacon, [facility] [address] [place] [address] 03/11/2024 4:15 PM CDT Therapy Visit [address] [phone] Danya You, PA [facility] [address] [address] Delicia George, PT [address] [address] 03/17/2024 1:30 PM CDT Therapy Visit [address] [address] Danya You, PA [address] [address] Isabel Beaulieu, OTR [address] [address] 03/17/2024 2:30 PM CDT Therapy Visit [address] [phone] Danya You, PA [facility] [address] [address] Charis Chacon, [facility] [address] [place] [address] 03/17/2024 4:00 PM CDT Therapy Visit [address] [phone] Danya You, PA [address] [place] [address] Delicia George, PT [facility] [address] [place] [address] 03/23/2024 10:30 AM CDT Office Visit [facility] [address] [place] [phone] Denise Woodson Ra, EQUINE VET [facility] [address] [place] [address] 03/26/2024 1:30 PM CDT Therapy Visit [address] [address] Danya You, AMAIRANI [address] [place] [address] Isabel Beaulieu, OTR [address] [address] 03/26/2024 2:30 PM CDT Therapy Visit [address] [address] Danya You, [place] 6410 [facility] [address] [place] [address] Charis Chacon, [facility] [address] [place] [address] 03/26/2024 3:30 PM CDT Therapy Visit [address] [phone] Danya You, PA [address] [place] [address] 424034 Delicia George, PT [facility] [address] [place] [address] 04/02/2024 2:15 PM CDT Therapy Visit [address] [phone] Danya You, PA [address] [place] [address] [address] Isabel Beaulieu, OTR [facility] 150 [place] [address] 04/02/2024 3:15 PM CDT Therapy Visit [address] [phone] Danya You, PA [address] [address] Charis Chacon, [facility] [place], [place] [address] 04/02/2024 4:15 PM CDT Therapy Visit [address] [phone] Danya You, PA [address] [place] [address] Delicia George, PT [facility] SUR[facility]ERY [address] [address] 04/09/2024 3:15 PM CDT Therapy Visit [address] [phone] Danya You, PA [address] 731864 Charis Chacon, [facility] [address] [place] [address] 04/09/2024 4:15 PM CDT Therapy Visit [address] [address] Danya You, PA [address] [place] [address] [address] Delicia George, PT [facility] [address] [place] [address] 04/15/2024 9:30 AM CDT Therapy Visit [address] [address] Danya You, PA [address] [place] [address] [address] Danya Restrepo, TABLE INSPECTOR 04/23/2024 2:30 PM CDT Therapy Visit [address] [phone] Danya You PA [address] [place] [address] [address] Charis Chacon, JUAN [facility] [address] [place] [address] 06/23/2024 11:00 AM CDT Virtual Visit [facility] Mental Health & Addiction [facility] [address] [address] Kristin Vázquez, [facility] [address] [place] [address] 06/30/2024 2:00 PM CDT Virtual Visit [facility] Mental [facility] & [facility] [address] [address] Kristin Vázquez, [facility] [address] [facility] [place] [address] documented as of this encounter Results * Follicle stimulating hormone (06/22/2019 3:36 PM CDT) FSH 9.5 IU/L 06/23/2019 2:32 PM CDT [facility] Comment: FSH Reference Range Female: Follicular ?2.5-10.2 ?Mid-cycle ? 3.4-33.4 ?Luteal ?1.5-9.1 ?Postmenopausal ??23.0-116.3 Blood specimen (specimen) 06/22/2019 3:36 PM CDT 06/22/2019 3:37 PM CDT Clara Cornell MD LAB - BLOOD ORD ERABLES [facility] [address] [place] [address] * TSH with free T4 reflex FUTURE anytime (06/22/2019 3:36 PM CDT) TSH 3.30 0.40 - 4.00 mU/L 06/23/2019 3:[address] [facility] Blood specimen (specimen) 06/22/2019 3:36 PM CDT 06/22/2019 3:37 PM CDT Clara Cornell MD LAB - BLOOD ORD ERABLES [facility] [address] [place], [place] [address] documented in this encounter Visit Diagnoses Diagnosis Anti-TPO antibodies present- Primary Other and unspecified nonspecific immunological findings Excessive sweating Generalized hyperhidrosis documented in this encounter Additional Health Concerns Assessment Noted Time PHQ-9 Depression Total Score: 0 06/15/20 19 7:09 PM CDT documented as of this encounter Care Teams Chemist Helper Relationship Specialty Start Date End Date Yung Madrigal MD RETIRED PCP - Orthopaedics Orthopedics 08/26/12 01/20/24 Winston Villatoro OD [facility] [place] [address] [place] [address] PCP - Ophthalmology Ophthalmology 02/11/13 Clara Cornell MD [facility] [place] [address] [place] [address] PCP - General Internal Medicine 02/07/17 09/20/20 Denise Woodson Ra EQUINE VET KEYBOARDING CLERK [address] [place] [address] PCP - General Family Practice 09/21/20 Clara Cornell MD [address] [place] [address] Assigned PCP 01/17/17 07/16/20 Denise Woodson Ra EQUINE VET KEYBOARDING CLERK [address] [place] [address] Assigned PCP 07/17/20 Usha Simon APRN KEYBOARDING CLERK 909 [facility] [address] Nurse Practitioner Neurological Surgery 01/24/24 Dangelo Salinas MD [address] [place] [address] Neurology 01/27/24 documented as of this encounter
--- OUTSIDE RECORDS SUMMARY | 2024-02-02 22:35 | XMS_ITS | Encounter Summary ---
Author Name Unknown Organization [facility] Address [address] [place] [address]. [place] [address] Care Team Providers Care Layout Inspector Name Role Phone Yung Madrigal MD Unavailable Unavailable Winston Villatoro OD Unavailable [phone] Denise Woodson Ra, APRN SAFETY GLASS INSTALLER Unavailable [phone] Denise Woodson Ra, APRN SAFETY GLASS INSTALLER Primary Care Provid er Usha Simon APRN SAFETY GLASS INSTALLER Unavailable [phone]- [phone] Dangelo Salinas MD Unavailable Reason for Visit * Reason Comments Medication Refill Encounter Details Date Type Department Care Team (Late st Contact Info) Description 02/19/2022 Refill [facility] [address] [place] [phone] Denise Woodson Ra, APRN SAFETY GLASS INSTALLER [address] [place] [address] Medication Refill Social History Tobacco [...] Description 02/03/2024 8:45 AM CDT Therapy Visit [address] [phone] Denise Woodson Ra, CANDLES POURER SAFETY GLASS INSTALLER [address] [place], [place] [phone] Addis Rojas, PT [facility] [address] [place] [address] 02/04/2024 PRE VISIT [facility] Neurology [address] [address] Raul Hoyos MD [address] [place] [phone] *-*INCOMING RECORDS*-* 02/04/2024 11:00 AM CDT Virtual Visit [facility] Neurology [address] [address] Raul Hoyos MD [address] [place] [address] 729135 02/06/2024 8:30 AM CDT Office Visit [facility] [address] [place] [phone] Chintan Denise Ra, CANDLES POURER SAFETY GLASS INSTALLER [address] [place], [place] 6657568 02/07/2024 2:00 PM CDT Therapy Visit [facility] 150 [place] [phone] Danya You, AMAIRANI [address] [place] [address] 213 [place] [address] Charis Chacon, [facility]AN [facility] [address] [place], [place] 32[address]47 02/14/2024 12:45 PM CDT Therapy Visit [address] [phone] Danya You, AMAIRANI [facility] [address] [address] Isabel Beaulieu, OTJah [facility] 150 [place] [address] 02/14/2024 2:00 PM CDT Therapy Visit [address] [phone] Danya You, PA [address] [address] Charis Chacon, J[facility]AN [facility] [address] [place], [place] [address]297 02/14/2024 2:45 PM CDT Therapy Visit [address] [phone] Danya You PA [address] 213 [place] [address] Maria Eugenia Nguyen, PT 2155 [place] [address] 02/17/2024 2:45 PM CDT Therapy Visit [facility] 150 [place] [phone] Danya You, PA [address] 213 [place] [address] Aliya Kim, HAND TRIMMER [address] [facility] 200 [place] [address] 02/19/2024 3:00 PM CDT Therapy Visit [facility] 150 [place] [address] Danya You, PA 2450 [facility] [address] [address] Isabel Beaulieu, OTR [address] [address] 02/26/2024 2:15 PM CDT Therapy Visit [address] [address] Danya You, AMAIRANI [address] 213 [place] [address] Charis Chacon, [facility] [address] [place] [address] 02/26/2024 3:00 PM CDT Therapy Visit [address] [place] [address] Danya You, PA [address] 213 [place] [address] Isabel Beaulieu, OTR [facility] 150 [place] [address] 02/27/2024 4:45 PM CDT [facility] 150 [place] [address] Danya You, PA 2450 [facility] [address] [place] [address] Vanessa Duggan, PT 03/05/2024 1:30 PM CDT Therapy Visit [facility] 150 [place] [address] Danya You PA 2450 [facility] [address] [address] Isabel Beaulieu, OTR [facility] 150 [place] [address] 03/05/2024 3:15 PM CDT Therapy Visit [facility] 150 [place] [address] Danya You, PA 2450 [facility] [address] [address] Charis Chacon, [facility] [address] [place] [address] 03/05/2024 4:15 PM CDT Therapy Visit [facility] 150 [place] [address] Danya You PA [address] [place] [address] Delicia George, PT [address] 846295 03/11/2024 2:15 PM CDT Therapy Visit [facility] 150 [place] [address] Danya You, AMAIRANI [address] [place] [address] Isabel Beaulieu, JAIMIE [facility] 150 [place] [address] 03/11/2024 3:00 PM CDT Therapy Visit [facility] 150 [place] [address] Danya You, PA [address] [address] Charis Chacon, HAND TRIMMER [facility] [address] [place] [address] 03/11/2024 4:15 PM CDT Therapy Visit [facility] 150 [place] [phone] Danya You, PA [address] [place] [address] Delicia George, PT [facility] [address] [place] [address] 9[address]145 03/17/2024 1:30 PM CDT Therapy Visit [address] [phone] Danya You, PA 2450 [facility] [address] [address] Isabel Beaulieu, OTR [address] [address] 03/17/2024 2:30 PM CDT Therapy Visit [address] [phone] Danya You, [place] [address] [address] Charis Chacon, [facility] [address] [place] [address] 03/17/2024 4:00 PM CDT Therapy Visit [address] [phone] Danya You, PA 4800 [facility] [address] [address] Delicia George, PT [facility] [address] [place] [address] 03/23/2024 10:30 AM CDT Office Visit [facility] [address] [place] [phone] Denise Woodson Ra, CANDLES POURER [facility] [address] [place] [address] 03/26/2024 1:30 PM CDT Therapy Visit [address] [phone] Danya You, PA [address] [place] [address] Isabel Beaulieu, OTR [address] [address] 03/26/2024 2:30 PM CDT Therapy Visit [address] [phone] Danya You, AMAIRANI [address] [place] [address] Charis Chacon, [facility] [address] [place] [address] 03/26/2024 3:30 PM CDT Therapy Visit [address] [phone] Danya You, PA [address] [place] [address]644 Delicia George, PT [facility] [address] [place] [address] 04/02/2024 2:15 PM CDT Therapy Visit [address] [phone] Danya You, PA [address] [place] [address]394 Isabel Beaulieu, OTR [facility] 150 [place] [address] 04/02/2024 3:15 PM CDT Therapy Visit [address] [phone] Danya You, PA [address] [address] Charis Chacon, [facility] [address] [place], [place] 472707 04/02/2024 4:15 PM CDT Therapy Visit [address] [phone] Danya You, PA [address] [address] Delicia George, PT [facility] [address] [address] 04/09/2024 3:15 PM CDT Therapy Visit [address] [phone] Danya You, PA [address] 213 [place] [address] Charis Chacon, [facility] [address] [place] [address] 04/09/2024 4:15 PM CDT Therapy Visit [address] [phone] Danya You PA [address] [place] [address] Delicia George, PT [facility] [address] [place] [address] 04/15/2024 9:30 AM CDT Therapy Visit [address] [address] Danya You, PA [address] [place] [address] Danya Restrepo, HAND TRIMMER 04/23/2024 2:30 PM CDT Therapy Visit [address] [address] Danya You, PA [facility] [address] [place] [address] Charis Chacon, [facility] [address] [place] [address] 06/23/2024 11:00 AM CDT Virtual Visit [facility] Mental Health & Addiction [facility] [place] [address] [place] [address] Kristin Vázquez, [facility] 7441 [place] [address] 06/30/2024 2:00 PM CDT Virtual Visit [facility] Mental Health & Addiction [facility] [address] [place] [address] Kristin Vázquez, [facility] 6341 [facility] [place] [address] documented as of this encounter Visit Diagnoses Diagnosis Moderate persistent asthma without complication Unspecified asthma documented in this encounter Additional Health Concerns Assessment Noted Time PHQ-9 Depression Total Score: 0 06/23/20 21 4:11 PM CDT documented as of this encounter Care Teams Layout Inspector Relationship Specialty Start Date End Date Yung Madrigal MD RETIRED PCP - Orthopaedics Orthopedics 08/26/12 01/20/24 Winston Villatoro OD [facility] [place] [address] [facility] [address] [place] [address] PCP - Ophthalmology Ophthalmology 02/11/13 Denise Woodson Ra, APRN SAFETY GLASS INSTALLER [address] [place] [address] PCP - General Family Practice 09/21/20 Denise Woodson Ra, APRN SAFETY GLASS INSTALLER [address] [place] [address] Assigned PCP 07/17/20 Usha Simon APRN SAFETY GLASS INSTALLER 909 [facility] [address] Nurse Practitioner Neurological Surgery 01/24/24 Dangelo Salinas MD [address] [facility] [address] [address] Neurology 01/27/24 documented as of this encounter
--- OUTSIDE RECORDS SUMMARY | 2024-02-02 22:35 | XMS_ITS | Encounter Summary ---
Author Name Unknown Organization [facility] Address [address] [place] [address]. [place] [address] Care Team Providers Care Spot Checker Name Role Phone Yung Madrigal MD Unavailable Unavailable Winston Villatoro OD Unavailable [phone] Denise Woodson Ra, APRN INSTRUCTIONAL TECHNOLOGY TEACHER Unavailable [phone] Denise Woodson Ra, APRN INSTRUCTIONAL TECHNOLOGY TEACHER Primary Care Provid er Usha Simon APRN INSTRUCTIONAL TECHNOLOGY TEACHER Unavailable [phone] Dangelo Salinas MD Unavailable Reason for Visit * Reason Comments Medication Refill Encounter Details Date Type Department Care Team (Late st Contact Info) Description 06/11/2021 Refill [facility] [address] [place] [address] [address] [place] [address] Denise Woodson Ra, BARRERA INSTRUCTIONAL TECHNOLOGY TEACHER [address] [place], [place] [phone] Medication Refill Social History Tobacco Use Types [...] 02/03/2024 8:45 AM CDT Therapy Visit [address] [phone] Denise Woodson Ra, QUALITY ASSURANCE SUPERVISOR TRIM INSTRUCTIONAL TECHNOLOGY TEACHER [address] [facility] [place] [address] Addis Rojas, PT [facility] AMAIRANI [address] [place], [place] [phone] 02/04/[address] [facility] Neurology [address] [phone] Raul Hoyos MD [address] [place] [address] *-*INCOMING RECORDS*-* 02/04/2024 11:00 AM CDT Virtual Visit [facility] Neurology [address] [phone] Raul Hoyos MD [address] [place] [address]37725 02/06/2024 8:30 AM CDT Office Visit [facility] [address] [place] [phone] Denise Woodson Ra, QUALITY ASSURANCE SUPERVISOR TRIM INSTRUCTIONAL TECHNOLOGY TEACHER [address] [place] [address] 02/07/2024 2:00 PM CDT Therapy Visit [address] [phone] Danya You, AMAIRANI 2450 [facility] [address] [place], [place] [address] Charis Chacon, J[facility]AN [facility] [address] [place] [address] 02/14/2024 12:45 PM CDT Therapy Visit Psychiatric 150 [place] [address] Danya You, PA [address] [place] [address] Isabel Beaulieu, OTR [address] [address] 02/14/2024 2:00 PM CDT Therapy Visit [address] [phone] Danya You, AMAIRANI [address] [place] [address] Charis Chacon, [facility] [address] [place] [address] 02/14/2024 2:45 PM CDT Therapy Visit [address] [phone] Dnaya You, PA [address] [place] [address] Maria Eugenia Nguyen, PT 2155 [place] [address] 02/17/2024 2:45 PM CDT Therapy Visit [facility] [address] [place] [address] Danya You, PA [address] [place] [address] Aliya Kim, BANDER OPERATOR [address] [facility], [address] [place], [place] [address] 02/19/2024 3:00 PM CDT Therapy Visit [facility] 150 [place] [address] Danya You, PA [address] [place] [address] Isabel Beaulieu, SIMBAR VALARIE [address] [address] 02/26/2024 2:15 PM CDT Therapy Visit [facility] [address] [place] [phone] Danya You, PA [address] [address] Charis Chacon, J[facility]AN [facility] [address] [place] [address] 02/26/2024 3:00 PM CDT Therapy Visit [facility] 150 [place] [phone] Danya You, PA [address] [address] Isabel Beaulieu, OTR [facility] [address] [place] [address] 02/27/2024 4:45 PM CDT Therapy Visit [facility] [address] [place] [address] Danya You, PA [address] [address] Vanessa Duggan, PT 03/05/2024 1:30 PM CDT Therapy Visit [address] [phone] Danya You, PA [address] [address] Isabel Beaulieu OTJah [address] [address] 03/05/2024 3:15 PM CDT Therapy Visit [address] [address] Danya You, PA [address] [address] Charis Chacon, [facility] [address] [place] [address] 03/05/2024 4:15 PM CDT Therapy Visit [address] [phone] Danya You, PA [address] 844[address] Delicia George, PT [facility] [address] [place] [address] 03/11/2024 2:15 PM CDT Therapy Visit [address] [place] [phone] Danya You, AMAIRANI [address] [place] [address]24 Isabel Beaulieu, OTR [facility] 150 [place] [address] 03/11/2024 3:00 PM CDT Therapy Visit [facility] [address] [place] [phone] Danya You, AMAIRANI [address] [address] Charis Chacon, [facility] [address] [place] [address] 03/11/2024 4:15 PM CDT Therapy Visit Psychiatric [address] [place] [address] Danya You, AMAIRANI 2450 [facility] [address] [address] [address] Delicia George, PT [facility] [address] [place] [address] 03/17/2024 1:30 PM CDT Therapy Visit [facility] [place] [address] [place] [address] Danya You, AMAIRANI Counts include 234 beds at the [facility]0 [address] [address] Isabel Beaulieu OTR [facility] 150 [place] [address] 03/17/2024 2:30 PM CDT Therapy Visit Psychiatric 150 [place] [address] Danya You, PA [address] [address] Charis Chacon, [facility] [address] [place] [address] 03/17/2024 4:00 PM CDT Therapy Visit [address] [phone] [place] [address] 355[address] Delicia George, PT [facility] [address] [place] [address] 03/23/2024 10:30 AM CDT Office Visit [facility] [address] [place] [address] Denise Woodson Ra, QUALITY ASSURANCE SUPERVISOR TRIM [facility] [address] [place], [place] 0945[address] 03/26/2024 1:30 PM CDT Therapy Visit [address] [phone] Danya You, AMAIRANI 9620 [facility] [address] [address] Isabel Beaulieu, OTR [address] [address] 03/26/2024 2:30 PM CDT Therapy Visit [address] [phone] Danya You, PA 2450 [facility] SOTO [address] [place] [address] Charis Chacon, [facility] [address] [place] [address] 03/26/2024 3:30 PM CDT Therapy Visit [address] [phone] Danya You, PA [address] [address] Delicia George, PT [facility] [address] [place] [address] 04/02/2024 2:15 PM CDT Therapy Visit [address] [phone] Danya You, PA [address] [address] Isabel Beaulieu OTR [address] [address] 04/02/2024 3:15 PM CDT Therapy Visit [address] [phone] Danya You, PA [address] [address] Charis Chacon, [facility] [address] [place] [address] 04/02/2024 4:15 PM CDT Therapy Visit [address] [phone] Danya You, AMAIRANI [address] [place] [address] Delicia George, PT [address] [address] 04/09/2024 3:15 PM CDT Therapy Visit [address] [address] Danya You, PA [address] [place] [address] Charis Chacon, [facility] [address] [place] [address] 04/09/2024 4:15 PM CDT Therapy Visit [address] [phone] Danya You, PA 2450 [facility] 213 [place] [address] Delicia George, PT [address] [address] 04/15/2024 9:30 AM CDT Therapy Visit [address] [address] Danya You PA [address] [place] [address] Danya Restrepo SLP 04/23/2024 2:30 PM CDT Therapy Visit [facility] Rehabilitation Services [facility] [address] [place] [address] Danya You PA [address]130 [address] [place] [address] Charis Chacon, J[facility]AN [facility] [address] [place] [address] 06/23/2024 11:00 AM CDT Virtual Visit [facility] Mental Health & Addiction [facility] [address] [place] [address] Kristin Vázquez, [facility] 6341 [place] [address] 06/30/2024 2:00 PM CDT Virtual Visit [facility] Mental Health & Addiction [facility] [place] 832621 [place] [address] Kristin Vázquez, [facility] 6341 [place] [address] documented as of this encounter Visit Diagnoses Diagnosis Insomnia, unspecified type documented in this encounter Additional Health Concerns Assessment Noted Time PHQ-9 Depression Total Score: 0 01/05/20 21 9:31 AM CDT documented as of this encounter Care Teams Spot Checker Relationship Specialty Start Date End Date Yung Madrigal MD RETIRED PCP - Orthopaedics Orthopedics 08/26/12 01/20/24 Winston Villatoro OD [facility] [place] [address] [place] [address] PCP - Ophthalmology Ophthalmology 02/11/13 Denise Woodson Ra, APRN INSTRUCTIONAL TECHNOLOGY TEACHER [address] [place] [address] PCP - General Family Practice 09/21/20 Denise Woodson Ra, APRN INSTRUCTIONAL TECHNOLOGY TEACHER [address] [place] [address] Assigned PCP 07/17/20 Usha Simon APRN INSTRUCTIONAL TECHNOLOGY TEACHER 909 [facility]2121[place], [place] [address] Nurse Practitioner Neurological Surgery 01/24/24 Dangelo Salinas MD [address] [place], [place] [phone] Neurology 01/27/24 documented as of this encounter
--- OUTSIDE RECORDS SUMMARY | 2024-02-02 22:36 | XMS_ITS ---
Author Name Unknown Organization [facility] Address [address] [place] [address] Care Team Providers Care Grinder Hardboard Name Role Phone Winston Villatoro OD Unavailable [phone] Denise Woodson Ra, APRN CYTOPATHOLOGIST Unavailable [phone] Denise Woodson Ra, APRN CYTOPATHOLOGIST Primary Care Provid er Usha Simon APRN CYTOPATHOLOGIST Unavailable [phone] Dangelo Salinas MD Unavailable Transitional Care Management Status:Enrolled (Active) Start date:01/27/2024 Enrollment date:01/28/2024 Continued Care and Services Coordination
--- OUTSIDE RECORDS SUMMARY | 2024-02-02 22:36 | XMS_ITS | Encounter Summary ---
Author Name Unknown Organization [facility] Address [address] [place] [address] Care Team Providers Care Registered Client Associate Name Role Phone Timmy Perez MD Unavailable Unavailable Yung Madrigal MD Unavailable Unavailable Winston Villatoro OD Unavailable [phone] Apple Sykes MD Primary Care Provider [phone] Westley Bates MD Unavailable [phone] Alessandra Cabrales APRN MAILROOM PERSONNEL Primary Car e Provider Serum, Clara Garland MD Primary Care Provider Serum, Clara Garland MD Unavailable [phone] Serum, Clara Garland MD Unavailable [phone] Denise Woodson Ra, APRN MAILROOM PERSONNEL Unavailable + [phone] Denise Woodson Ra, APRN [employer]ERSONNEL Primary Care Provid er Usha Simon APRN [employer]ILRO[employer] PERSONNEL Unavailable + [phone] Dangelo Salinas MD Unavailable Encounter Details Date Type Department Care Team (Late st Contact Info) Description 05/06/[address] [facility] Practice [address] [place] [address] Apple Sykes MD [address] [place] [phone] Social History Tobacco Use Types Packs/Day Years [...] Therapy Visit [facility] Rehabilitation Services [address] [phone] Denise Woodson Ra, INTENSIVIST [employer] [address] [place], [place] [phone] Addis Rojas, PT [facility] [address] [place] [address] 02/04/2024 PRE VISIT [facility] Neurology [address] [phone] Raul Hoyos MD [address] [place] [address] 753205 *-*INCOMING RECORDS*-* 02/04/2024 11:00 AM CDT Virtual Visit [facility] Neurology [address] [address] Raul Hoyos MD [address] [place] [address] 2184[address] 02/06/2024 8:30 AM CDT Office Visit [facility] [address] [place] [address] Denise Woodson Ra, INTENSIVIST [employer] [address] [place], [place] 8852668 02/07/2024 2:00 PM CDT Therapy Visit [address] [address] Danya You, AMAIRANI [address] [place] [address] Charis Chacon SLP [facility] [address] [place] [address] 02/14/2024 12:45 PM CDT Therapy Visit [address] [phone] Danya You, AMAIRANI [address] CHAR[address] [place] [address] Isabel Beaulieu OTR [address] [address] 02/14/2024 2:00 PM CDT Therapy Visit [address] [phone] Danya You, PA [address] HC[address] [place] [address] Charis Chacon, [facility] [address] [place] [address] 02/14/2024 2:45 PM CDT Therapy Visit [address] [phone] Danya You PA [address] [address] [place] [address] Maria Eugenia Nguyen, PT 2155 [place] [address] 02/17/2024 2:45 PM CDT Therapy Visit [facility] [address] [place] [address] Danya You, PA [address] [place] [address] Aliya Kim, TERMINAL COMPUTER OPERATOR [address] [facility], [address] [place] [address] 02/19/2024 3:00 PM CDT Therapy Visit [address] [phone] Danya You, PA [address] [address] Isabel Beaulieu, OTR [address] [address] 02/26/2024 2:15 PM CDT Therapy Visit [address] [phone] Danya You, PA [address] [address] Charis Chacon, [facility] [address] [place] [address] 02/26/2024 3:00 PM CDT Therapy Visit [address] [phone] Danya You, PA [address] [address] Isabel Beaulieu, OTR [facility] 150 [facility] [place] [address] 02/27/2024 4:45 PM CDT Therapy Visit [facility] [address] [place] [address] Danya You, PA [address] [address] Vanessa Duggan, PT 03/05/2024 1:30 PM CDT [facility] [address] [place] [address] Danya oYu, AMAIRANI [address] [address] Isabel Beaulieu, OTR [facility] 150 [place] [address] 03/05/2024 3:15 PM CDT [facility] [address] [place] [address] Danya You, PA [facility] [address] [address] Charis Chacon, [facility]AB [address] [place] [address] 03/05/2024 4:15 PM CDT Therapy Visit [facility] 150 [facility] [place] [address] Danya You, PA [address] [address] Delicia George, PT [facility] [address] [place] [address] 03/11/2024 2:15 PM CDT Therapy Visit [address] [phone] Danya You, PA [address] [address] Isabel Beaulieu OTR [address] [address] 03/11/2024 3:00 PM CDT Therapy Visit [address] [phone] Danya You, PA [address] [address] Charis Chacon, [facility] [address] [place] [address] 03/11/2024 4:15 PM CDT Therapy Visit [address] [phone] Danya You, PA [address] [address] Delicia George, PT [facility] [address] [place] [address] 03/17/2024 1:30 PM CDT Therapy Visit [address] [place] [address] Danya You, AMAIRANI [address] [place] [address] Isabel Beaulieu, OTR [address] [address] 03/17/2024 2:30 PM CDT Therapy Visit [address] [phone] Danya Yuo, AMAIRANI [address] [address] Charis Chacon SLP [facility] [address] [place] [address] 03/17/2024 4:00 PM CDT Therapy Visit [address] [phone] Danya You, PA [address] [facility] JIE [address] [address] Delicia George, PT [facility] [address] [place] [address] 03/23/2024 10:30 AM CDT Office Visit [facility] [address] [place] [phone] Denise Woodson Ra, INTENSIVIST [facility] [address] [place] [address] 03/26/2024 1:30 PM CDT Therapy Visit [address] [place] [phone] Danya You PA [address] [place] [address] Isabel Beaulieu, OTR [facility] 150 [place] [address] 03/26/2024 2:30 PM CDT Therapy Visit [facility] [address] [place] [phone] Danya You, AMAIRANI [address] 722054 Charis Chacon, [facility] [address] [place] [address] 03/26/2024 3:30 PM CDT Therapy [facility] [address] [place] [phone] Danya You, AMAIRANI 2450 [facility] JIE [address] [address] Delicia George, PT [facility] [address] [address] 04/02/2024 2:15 PM CDT Therapy Visit [facility] [address] [place] [address] Danya You, AMAIRANI [address] S[address] [place] [address] Isabel Beaulieu, OTR [facility] 150 [place] [address] 04/02/2024 3:15 PM CDT Therapy Visit [address] [phone] Danya You PA [address] [address] Charis Chacon SLP [facility] [address] [place] [address] 04/02/2024 4:15 PM CDT Therapy Visit [address] [phone] Danya You, PA [address] [address] Delicia George, PT [facility] [address] [place] [address] 04/09/2024 3:15 PM CDT Therapy Visit [address] [phone] Danya You, PA [address] [address] Charis Chacon SLP [facility] [address] [place] [address] 04/09/2024 4:15 PM CDT Therapy Visit [address] [phone] Danya You PA [address] [address] Delicia George, PT [facility] [address] [place] [address] 04/15/2024 9:30 AM CDT Therapy Visit [address] [phone] Danya You PA [address] [place] [address] Danya Restrepo, TERMINAL COMPUTER OPERATOR 04/23/2024 2:30 PM CDT Therapy Visit [address] [phone] Danya You, AMAIRANI [address] [place] [address] Charis Chacon, [facility] 2001[facility] [address] [place] [address] 06/23/2024 11:00 AM CDT Virtual Visit [facility] Mental Health & Addiction [address] [address] Kristin Vázquez, [facility] [address] [place] [address] 06/30/2024 2:00 PM CDT Virtual Visit [facility] Mental Health & Addiction [facility] 6401 [place] [address] Kristin Vázquez, [facility] 6341 [place] [address] documented as of this encounter Visit Diagnoses Not on filedocumented in this encounter Care Teams Registered Client Associate Relationship Specialty Start Date End Date Timmy Perez MD PCP - Obstetrics/Gynecology 03/02/08 08/07/15 Yung Madrigal MD RETIRED PCP - Orthopaedics Orthopedics 08/26/12 01/20/24 Winston Villatoro, OD [facility] [place] [address] [place] [address] PCP - Ophthalmology Ophthalmology 02/11/13 Apple Sykes MD [facility] [place] [address] [place] [address] PCP - General Family Practice 05/04/13 10/25/16 Westley Bates MD XXX RETIRED XXX [address] [place] [address] PCP - ENT Otolaryngology 05/14/13 07/28/[address] [facility] APRN [employer]ILROOM PERSONNEL [address] [facility] [place] [address] PCP - General Nurse Practitioner 10/26/16 02/06/17 Clara Cornell MD [address] [facility] [place] [address] PCP - General Internal Medicine 02/07/17 09/20/20 Clara Cornell MD 8675 [place] [address] PCP - Assigned PCP 01/17/17 11/18/18 Denise Woodson Ra, INTENSIVIST [employer]ERSONNEL [address] [place] [address] PCP - General Family Practice 09/21/20 Clara Cornell MD 8675 [place] [address] Assigned PCP 01/17/17 07/16/20 Denise Woodson Ra, APRN [employer]IL[employer] PERSONNEL [address] [place] [address] Assigned PCP 07/17/20 Usha Simon APRN [employer]ILROOM PERSONNEL [address] [facility] [address] [facility]2121[place] [address] Nurse Practitioner Neurological Surgery 01/24/24 Dangelo Salinas MD [address] [place] [address] Neurology 01/27/24 documented as of this encounter
--- OUTSIDE RECORDS SUMMARY | 2024-02-02 22:36 | XMS_ITS | Encounter Summary ---
Author Name Unknown Organization [facility] [place] Address [address] [place] [address] Care Team Providers Care Regional Service Manager Name Role Phone Yung Madrigal MD Unavailable Unavailable Winston Villatoro OD Unavailable [phone] Serum, Clara Garland MD Primary Care Provider Serum, Clara Garland MD Unavailable [phone] Denise Woodson Ra, APRN ADVERTISING REP Unavailable [phone] Denise Woodson Ra, APRN ADVERTISING REP Primary Care Provid er Usha Simon APRN ADVERTISING REP Unavailable [phone] Dangelo Salinas MD Unavailable Encounter Details Date Type Department Care Team (Late st Contact Info) Description 01/21/2019 MyC Medical Advice [address] [place] [phone] [facility] Social History Tobacco Use Types Packs/Day [...] Description 02/03/2024 8:45 AM CDT Therapy Visit [facility] Rehabilitation [address] [phone] Denise Woodson Ra, VP PRODUCTION ADVERTISING REP [address] [place], [place] [phone] Addis Rojas, PT [facility] [address] [place], [place] [phone] 02/04/2024 PRE VISIT [facility] Neurology [address] [phone] Raul Hoyos MD [address] [place] [address] *-*INCOMING RECORDS*-* 02/04/2024 11:00 AM CDT Virtual Visit [facility] Neurology [address] [phone] Raul Hoyos MD [address] [place] [address] 6887[address] 02/06/2024 8:30 AM CDT Office Visit [facility] [address] [place] [address] Denise Woodson Ra, VP PRODUCTION ADVERTISING REP [address] [place] [address] 02/07/2024 2:00 PM CDT Therapy Visit [facility] Rehabilitation [address] [phone] Danya You, PA [address] [place], [place] [address] Charis Chacon SLP [facility] [address] [place] [address] 02/14/2024 12:45 PM CDT Therapy Visit [address] [phone] Danya You, AMAIRANI [address] [place] [address] Isabel Beaulieu, OTR [address] [address] 02/14/2024 2:00 PM CDT Therapy Visit [address] [phone] Danya You, AMAIRANI [address] [address] Charis Chacon, [facility] [address] [place] [address] 02/14/2024 2:45 PM CDT Therapy Visit [address] [phone] Danya You, PA [address] [address] Maria Eugenia Nguyen, PT 2155 [place] [address] 02/17/2024 2:45 PM CDT Therapy Visit [address] [phone] Danya You PA [address] [address] Aliya Kim, [employer]ENCH TEACHER [address] [facility], [address] [place], [place] [address] 02/19/2024 3:00 PM CDT Therapy Visit [facility] [address] [place] [phone] Dnaya You PA [address] [place] [address] Isabel Beaulieu, OTR [facility] 150 [place] [address] 02/26/2024 2:15 PM CDT Therapy Visit [facility] 150 [place] [phone] Danya You PA [address] [address] Charis Chacon, [facility] [place] [address] 02/26/2024 3:00 PM CDT Therapy Visit [facility] 150 [place] [phone] Danya You, AMAIRANI [facility] 213 [place] [address] Isabel Beaulieu, OTR [facility] [address] [place] [address] 02/27/2024 4:45 PM CDT Therapy Visit [facility] [address] [place] [phone] Danya You, PA [address] [place] [address] Vanessa Duggan, PT 03/05/2024 1:30 PM CDT Therapy Visit [facility] [address] [place] [address] Danya You, PA [address] [place] [address] Isabel Beaulieu, OTR [address] [address] 03/05/2024 3:15 PM CDT Therapy Visit [address] [phone] Danya You, AMAIRANI [address] [address] Charis Chacon, [facility] [address] [place] [address] 03/05/2024 4:15 PM CDT Therapy Visit [address] [phone] Danya You, PA [facility] [address] [address] Delicia George, PT [facility] [address] [address] 03/11/2024 2:15 PM CDT Therapy Visit [address] [phone] Danya You PA [address] CHAR[address] [place] [address] Isabel Beaulieu, OTR [facility] [address] [place] [address] 03/11/2024 3:00 PM CDT Therapy Visit [facility] [address] [place] [phone] Danya You, PA [address] [address] Charis Chacon, [facility] [address] [place] [address] 03/11/2024 4:15 PM CDT [facility] [address] [place] [address] Danya You, PA [address] [address] Delicia George, PT [facility] [address] [place] [address] 03/17/2024 1:30 PM CDT Therapy Visit [facility] [address] [place] [phone] Danya You, AMAIRANI [address] [address] Isabel Beaulieu, OTR [facility] GOMEZ[facility]ANNERE [address] [place] [address] 03/17/2024 2:30 PM CDT Therapy Visit [facility] 150 [place] [phone] Danya You PA [address] [address] Charis Chacon, [facility] [address] [place] [address] 03/17/2024 4:00 PM CDT Therapy Visit [address] [phone] Danya You PA 2620 [facility] [address] [address] Delicia George, PT [facility] [address] [address] 03/23/2024 10:30 AM CDT Office Visit [facility] [address] [place] [address] Denise Woodson Ra, VP PRODUCTION ADVERTISING REP [address] [place], [place] 9589068 03/26/2024 1:30 PM CDT Therapy Visit [address] [phone] Danya You PA [address] [place] [address] Isabel Beaulieu OTR [address] [address] 03/26/2024 2:30 PM CDT Therapy Visit [address] [phone] Danya You, AMAIRANI [address] [place] [address] Charis Chacon, [facility] [address] [place] [address] 03/26/2024 3:30 PM CDT Therapy Visit [address] [phone] Danya You, AMAIRANI [address] [address] Delicia George, PT [facility] [address] [address] 04/02/2024 2:15 PM CDT Therapy Visit [address] [phone] Danya You, PA [facility] [address] [address] Isabel Beaulieu, OTR [address] [address] 04/02/2024 3:15 PM CDT Therapy Visit [address] [phone] Danya You, PA [facility] [address] [address] Charis Chacon, [facility] [address] [place] [address] 04/02/2024 4:15 PM CDT Therapy Visit [address] [address] Danya You, PA [address] [address] Delicia George, PT [address] [address] 04/09/2024 3:15 PM CDT Therapy Visit [address] [address] Danya You, PA [address] [address] Charis Chacon, [facility] [address] [place] [address] 04/09/2024 4:15 PM CDT Therapy Visit [address] [address] Danya You, PA [address] [address] Delicia George, PT [address] 93[address]65 04/15/2024 9:30 AM CDT Therapy Visit [address] [address] Danya You, PA [address] [place] [address] Danya Restrepo SLP 04/23/2024 2:30 PM CDT Therapy Visit [facility] 150 [place] [address] Danya You PA [address] [place] [address] Charis Chacon, [facility] [address] [place] [address] 06/23/2024 11:00 AM CDT Virtual Visit [facility] Mental Health & Addiction [address] [address] Kristin Vázquez, [facility] [address] [place] [address] 06/30/2024 2:00 PM CDT Virtual Visit [facility] Mental [facility] & Addiction [address] [address] Kristin Vázquez, [facility] [address] [place] [address] documented as of this encounter Visit Diagnoses Not on filedocumented in this encounter Additional Health Concerns Assessment Noted Time PHQ-9 Depression Total Score: 0 02/09/20 17 7:29 AM CDT documented as of this encounter Care Teams Regional Service Manager Relationship Specialty Start Date End Date Yung Madrigal MD RETIRED PCP - Orthopaedics Orthopedics 08/26/12 01/20/24 Winston Villatoro OD [facility] [address] [place] [address] [address] [place] [address] PCP - Ophthalmology Ophthalmology 02/11/13 Clara Cornell MD [facility] [address] [place] [address] PCP - General Internal Medicine 02/07/17 09/20/20 Denise Woodson Ra, APRN ADVERTISING REP [address] [place] [address] PCP - General Family Practice 09/21/20 Clara Cornell MD 8675 [place] [address] Assigned PCP 01/17/17 07/16/20 Denise Woodson Ra, APRN ADVERTISING REP [address] [place] [address] Assigned PCP 07/17/20 Usha Simon APRN ADVERTISING REP [address] [id number] [address] Nurse Practitioner Neurological Surgery 01/24/24 Dangelo Salinas MD [address] [place] [address] Neurology 01/27/24 documented as of this encounter
--- OUTSIDE RECORDS SUMMARY | 2024-02-02 22:36 | XMS_ITS | Encounter Summary ---
Author Name Unknown Organization [place] Address [address] [place] [address] Care Team Providers Care Music Historian Name Role Phone Timmy Perez MD Unavailable Unavailable Yung Madrigal MD Unavailable Unavailable Frw, None Primary Care Provider Unavailabl e Winston Villatoro OD Unavailable [phone] Apple Sykes MD Primary Care Provider [phone] Westley Bates MD Unavailable [phone] Alessandra Cabrales APRN HEAT AND VENT AIRCRAFT MECHANIC Primary Car e Provider Serum, Clara Garland MD Primary Care Provider Serum, Clara Garland MD Unavailable [phone] Serum, Clara Garland MD Unavailable [phone] Denise Woodson Ra, APRN HEAT AND VENT AIRCRAFT MECHANIC Unavailable + [phone] Denise Woodson Ra, APRN HEAT AND VENT AIRCRAFT MECHANIC Primary Care Provid er Usha Simon APRN HEAT AND VENT AIRCRAFT MECHANIC Unavailable [phone]- [phone] Dangelo Salinas MD Unavailable Encounter Details Date Type Department Care Team (Late st Contact Info) Description 01/31/2006 [facility] [place] FIELD OPERATOR [address] [place] [phone] Timmy Perez MD Social History Tobacco Use [...] 02/03/2024 8:45 AM CDT Therapy Visit [address] [phone] Denise Woodson Ra, LEAD ASSEMBLER HEAT AND VENT AIRCRAFT MECHANIC [address] [facility] [place], [place] [phone] Addis Rojas, PT [facility] [address] [place] [address] 02/04/2024 PRE VISIT [facility] Neurology [address] [phone] Raul Hoyos MD [address] [place] [address] *-*INCOMING RECORDS*-* 02/04/2024 11:00 AM CDT Virtual Visit [facility] Neurology [address] [phone] Raul Hoyos MD [address] [place] [address] 02/06/2024 8:30 AM CDT Office Visit [facility] [address] [place] [phone] Denise Woodson Ra, LEAD ASSEMBLER HEAT AND VENT AIRCRAFT MECHANIC [address] [place], [place] 7[address]4468 02/07/2024 2:00 PM CDT Therapy Visit [facility] 150 [place] [address] Danya You, AMAIRANI 2450 [facility] [address] [place] [address] Charis Chacon, [facility]AN [facility] [address] [place] [address] 02/14/2024 12:45 PM CDT Therapy Visit [address] [phone] Danya You, AMAIRANI 2450 [facility] [address] [place] [address] Isabel Beaulieu OTR [address] [address] 02/14/2024 2:00 PM CDT Therapy Visit [address] [phone] Danya You, PA 2450 [facility] [address] [place] [address] Charis Chacon, J[facility]AN [facility] [address] [place] [address] 02/14/2024 2:45 PM CDT Therapy Visit [address] [phone] Danya You, PA 2450 [facility] [address] [place] [address] Maria Eugenia Nguyen, PT 2[address] [place] [address] 02/17/2024 2:45 PM CDT Therapy Visit [address] [phone] Danya You, AMAIRANI [address] 213 [place] [address] Aliya Kim, PAINTER INTERIOR FINISH [address] [facility] 200 [place] [address] 02/19/2024 3:00 PM CDT Therapy Visit [address] [phone] Danya You, AMAIRANI [address] [facility] [address] [address] Isabel Beaulieu OTR [facility] [address] [address] 02/26/2024 2:15 PM CDT Therapy Visit [address] [phone] Danya You, PA [address] [address] Charis Chacon, [facility] [address] [place] [address] 02/26/2024 3:00 PM CDT Therapy Visit [address] [phone] Danya You PA 2450 [facility] [address] [place] [address] Isabel Beaulieu [facility] 150 [place] [address] 02/27/2024 4:45 PM CDT Therapy Visit [facility] 150 [place] [address] Danya You, PA [address] 539464 Vanessa Duggan, PT 03/05/2024 1:30 PM CDT Therapy Visit [address] [phone] Danya You, PA [address] 238714 Isabel Beaulieu, OTR [facility] 150 [place] [address] 03/05/2024 3:15 PM CDT Therapy Visit [address] [phone] Danya You, PA [address] 036[address] Charis Chacon, PAINTER INTERIOR FINISH [facility] [address] [place] [address] 03/05/2024 4:15 PM CDT Therapy Visit [address] [phone] Danya You, PA [address] 087[address] Delicia George, PT [facility] [address] [place] [address] 03/11/2024 2:15 PM CDT Therapy Visit [address] [phone] Danya You, AMAIRANI [address] [place] [address] Isabel Beaulieu, OTR [address] [address] 03/11/2024 3:00 PM CDT Therapy Visit [address] [phone] Dnaya You, PA [address] [address] Charis Chacon, [facility] [address] [place] [address] 03/11/2024 4:15 PM CDT Therapy Visit [address] [phone] Danya You, PA [address] [address] Delicia George, PT [facility] [address] [place] [address] 03/17/2024 1:30 PM CDT Therapy Visit [address] [phone] Danya You PA [address] [place] [address] Isabel Beaulieu, OTR [address] [address] 03/17/2024 2:30 PM CDT Therapy Visit [address] [phone] [place] [address] [address] Charis Chacon, [facility] [address] [place] [address] 03/17/2024 4:00 PM CDT Therapy Visit [address] [phone] [place] [address] 262144 Delicia George, PT [facility] [address] [place] [address] 03/23/2024 10:30 AM CDT Office Visit [facility] [address] [place] [phone] Denise Woodson Ra, LEAD ASSEMBLER [facility] [address] [place] [address] 03/26/2024 1:30 PM CDT Therapy Visit [address] [phone] Danya You, PA [address] [facility] [address] [place] [address] Isabel Beaulieu, OTR [facility] 150 [place] [address] 03/26/2024 2:30 PM CDT Therapy Visit [address] [phone] Danya You, AMAIRANI [address] [address] Charis Chacon, [facility] [address] [place] [address] 03/26/2024 3:30 PM CDT Therapy Visit [address] [phone] Danya You PA [address] [address] Delicia George, PT [facility] [address] [place] [address] 04/02/2024 2:15 PM CDT Therapy Visit [address] 97389-971914 Danya You PA [address] [place] [address] Isabel Beaulieu, OTR [facility] 150 [place] [address] 04/02/2024 3:15 PM CDT Therapy Visit [address] [address] Danya You PA [address] [facility] [address] [address] Charis Chacon SLP [facility] [address] [place] [address] 04/02/2024 4:15 PM CDT Therapy Visit [address] [phone] Danya You, AMAIRANI 2450 [facility] [address] [address] Delicia George, PT [address] [address] 04/09/2024 3:15 PM CDT Therapy Visit [address] 4[address]284114 Danya You, PA [address] [address] Charis Chacon, [facility] [address] [place] [address] 04/09/2024 4:15 PM CDT Therapy Visit [address] [phone] Danya You PA [facility] [address] [address] Delicia George, PT [address] [address] 04/15/2024 9:30 AM CDT Therapy Visit [facility] [address] [place] [address] Danya You, PA [address] [address] Danya Restrepo, PAINTER INTERIOR FINISH 04/23/2024 2:30 PM CDT Therapy Visit [address] [phone] Danya You, PA [address] [address] Charis Chacon, [facility] [address] [place] [address] 06/23/2024 11:00 AM CDT Virtual Visit [facility] Mental Health & Addiction [facility] [address] [place] [address] Kristin Vázquez, [facility] [address] [place] [address] 06/30/2024 2:00 PM CDT Virtual Visit [facility] [address] [place] [address] Kristin Vázquez, [facility] [address] [place] [address] documented as of this encounter Visit Diagnoses Not on filedocumented in this encounter Care Teams Music Historian Relationship Specialty Start Date End Date Timmy Perez MD PCP - Obstetrics/Gynecology 03/02/08 08/07/15 Yung Madrigal MD RETIRED PCP - Orthopaedics Orthopedics 08/26/12 01/20/24 Frw, None PCP - General Family Practice 08/26/12 05/03/13 Shauna Winston Se, OD [facility] [place] [address] [place] [address] PCP - Ophthalmology Ophthalmology 02/11/13 Apple Sykes MD [facility] [place] [address] [place] [address] PCP - General Family Practice 05/04/13 10/25/16 Westley Bates MD XXX RETIRED XXX [address] [place] [address] PCP - ENT Otolaryngology 05/14/13 07/28/18 GeorginaAlessandra Celeste APRN HEAT AND VENT AIRCRAFT MECHANIC 3305 [facility] [place] [address] PCP - General Nurse Practitioner 10/26/16 02/06/17 Clara Cornell MD 3305 [facility] [place] [address] PCP - General Internal Medicine 02/07/17 09/20/20 Clara Cornell MD 8675 [facility] [place] [address] PCP - Assigned PCP 01/17/17 11/18/18 Denise Woodson Ra, LEAD ASSEMBLER HEAT AND VENT AIRCRAFT MECHANIC [address] [place] [address] PCP - General Family Practice 09/21/20 Clara Cornell MD 8675 [place] [address] Assigned PCP 01/17/17 07/16/20 Denise Woodson Ra, APRN HEAT AND VENT AIRCRAFT MECHANIC [address] [place] [address] Assigned PCP 07/17/20 Usha Simon APRN HEAT AND VENT AIRCRAFT MECHANIC 909 [facility], [place] [address] Nurse Practitioner Neurological Surgery 01/24/24 Dangelo Salinas MD [address] [place] [address] Neurology 01/27/24 documented as of this encounter
--- OUTSIDE RECORDS SUMMARY | 2024-02-02 22:36 | XMS_ITS | Encounter Summary ---
Author Name Unknown Organization [place] Address [address] [place] [address] Care Team Providers Care Pharmacy Stock Clerk Name Role Phone Timmy Perez MD Unavailable Unavailable Yung Madrigal MD Unavailable Unavailable Winston Villatoro OD Unavailable [phone] Apple Sykes MD Primary Care Provider [phone] Westley Bates MD Unavailable [phone] Alessandra Cabrales APRN SENIOR COUNSEL Primary Car e Provider Serum, Clara Garland MD Primary Care Provider Serum, Clara Garland MD Unavailable [phone] Serum, Clara Garland MD Unavailable [phone] Denise Woodson Ra, APRN SENIOR COUNSEL Unavailable + [phone] Denise Woodson Ra, APRN SENIOR COUNSEL Primary Care Provid er Usha Simon APRN SENIOR COUNSEL Unavailable [phone] Dangelo Salinas MD Unavailable Encounter Details Date Type Department Care Team (Late st Contact Info) Description 05/26/2013 MyC Medical Advice [facility] [place] Orthopedics [address] [place] [address] Yung Madrigal MD RETIRED Social [...] Description 02/03/2024 8:45 AM CDT Therapy Visit [address] [phone] Denise Woodson Ra, BINDER SELECTOR SENIOR COUNSEL [address] [place], [place] [phone] Addis Rojas, PT [facility] [address] [place] [address] 02/04/2024 PRE VISIT [facility] Neurology [address] [phone] Raul Hoyos MD [address] [place] [address] *-*INCOMING RECORDS*-* 02/04/2024 11:00 AM CDT Virtual Visit [facility] Neurology [address] [phone] Raul Hoyos MD [address] [place] [address] 02/06/2024 8:30 AM CDT Office Visit [facility] [address] [place] [phone] Denise Woodson Ra, BINDER SELECTOR SENIOR COUNSEL [address] [place], [place] [address] 02/07/2024 2:00 PM CDT Therapy Visit [facility] 150 [place] [address] Danya You, AMAIRANI 2450 [facility] 213 [place] [address] Charis Chacon, J[facility]AN [facility] [address] [place] [address] 02/14/2024 12:45 PM CDT Therapy Visit [address] [phone] Danya You, AMAIRANI 2450 [facility] [address] [place] [address] Isabel Beaulieu, OTR [address] [address] 02/14/2024 2:00 PM CDT Therapy Visit [address] [phone] Danya You, PA 2450 [facility] 213 [place] [address] Charis Chacon SLP [place] [address] [place] [address] 02/14/2024 2:45 PM CDT Therapy Visit [address] [phone] Danya You, PA 2450 [facility] 213 [place] [address] Maria Eugenia Nguyen, PT 2[address] [place] [address] 02/17/2024 2:45 PM CDT Therapy Visit [address] [phone] Danya You, AMAIRANI [address] [place] [address] Aliya Kim, SHADE MATCHER [address] [facility] 200 [place] [address] 02/19/2024 3:00 PM CDT Therapy Visit [address] [phone] Danya You, AMAIRANI 2450 [facility] [address] [address] Isabel Beaulieu OTR FV [address] [address] 02/26/2024 2:15 PM CDT Therapy Visit [address] 61344-588014 Danya You, PA [address] [address] Charis Chacon, [facility] [address] [place] [address] 02/26/2024 3:00 PM CDT Therapy Visit [address] [phone] Danya You PA 2450 [facility] [address] [place] [address] Isabel Beaulieu OTR FV [facility] 150 [place] [address] 02/27/2024 4:45 PM CDT Therapy Visit [facility] 150 [place] [address] Danya You, PA [address] 857[address] Vanessa Duggan, PT 03/05/2024 1:30 PM CDT Therapy Visit [address] [phone] Danya You, PA [address] 8878[address] Isabel Beaulieu, OTR [facility] 150 [place] [address] 03/05/2024 3:15 PM CDT Therapy Visit [address] [phone] Danya You, PA [address] 9[address] Charis Chacon, SHADE MATCHER [facility] [address] [place] [address] 03/05/2024 4:15 PM CDT Therapy Visit [address] [phone] Danya You, PA [address] 8[address] Delicia George, PT [address] [address] 03/11/2024 2:15 PM CDT Therapy Visit [address] [phone] Danya You, AMAIRANI [address] [place] [address] Isabel Beaulieu, OTR [address] [address] 03/11/2024 3:00 PM CDT Therapy Visit [address] [phone] Danya You, PA [address] [address] Charis Chacon, [facility] [address] [place] [address] 03/11/2024 4:15 PM CDT Therapy Visit [address] [phone] Danya You, PA 2450 [facility] [address] [address] Delicia George, PT [facility] [address] [place] [address] 03/17/2024 1:30 PM CDT Therapy Visit [address] [phone] Danya You, PA 2450 [facility] 213 [place] [address] Isabel Beaulieu, OTR [facility] 150 [place] [address] 03/17/2024 2:30 PM CDT Therapy Visit [address] [phone] Danya You, PA [address] [address] Charis Chacon, SHADE MATCHER [facility] [address] [place] [address] 03/17/2024 4:00 PM CDT Therapy Visit [address] [phone] [place] [address] 370904 Delicia George, PT [facility] [address] [place] [address] 03/23/2024 10:30 AM CDT Office Visit [facility] [address] [place] [phone] Denise Woodson Ra, BINDER SELECTOR [facility] [address] [place], [place] [address] 03/26/2024 1:30 PM CDT Therapy Visit [address] [phone] Danya You, PA [address] [place] [address] Isabel Beaulieu, OTR [facility] [address] [place] [address] 03/26/2024 2:30 PM CDT Therapy Visit [address] [phone] Danya You, AMAIRANI [address] [address] Charis Chacon, [facility] [address] [place] [address] 03/26/2024 3:30 PM CDT Therapy Visit [address] [phone] Danya You PA [address] [address] Delicia George, PT [facility] [address] [place] [address] 04/02/2024 2:15 PM CDT Therapy Visit [facility] [address] [phone] Danya You, AMAIRANI [address] [place] [address] Isabel Beaulieu, OTR [facility] [address] [place] [address] 04/02/2024 3:15 PM CDT Therapy Visit [address] [address] Danya You PA [address] [address] Charis Chacon SLP [facility] [address] [place] [address] 04/02/2024 4:15 PM CDT Therapy Visit [address] [phone] Danya You, AMAIRANI [address] [place] [address] [address] Delicia George, PT [address] [address] 04/09/2024 3:15 PM CDT Therapy Visit [address] 91143-[address]014 Danya You, PA [facility] [address] [address] Charis Chacon, JUAN [facility] [address] [place] [address] 04/09/2024 4:15 PM CDT Therapy Visit [address] [phone] Danya You PA [facility] [address] [address] Delicia George, PT [address] [address] 04/15/2024 9:30 AM CDT Therapy Visit [facility] 150 [place] [address] Danya You, PA [address] [address] Danya Restrepo, SHADE MATCHER 04/23/2024 2:30 PM CDT Therapy Visit [address] [phone] Danya You, PA 2450 [facility] [address] [address] Charis Chacon, [facility] [address] [place] [address] 06/23/2024 11:00 AM CDT Virtual Visit [facility] Mental Health & Addiction [facility] [address] [place] [address] Kristin Vázquez, [facility] 6331 [place] [address] 06/30/2024 2:00 PM CDT Virtual Visit [facility] Mental [facility] & Addiction [facility] 6401 [place] [address] Kristin Vázquez, [facility] 8575 [place] [address] documented as of this encounter Visit Diagnoses Not on filedocumented in this encounter Care Teams Pharmacy Stock Clerk Relationship Specialty Start Date End Date Timym Perez MD PCP - Obstetrics/Gynecology 03/02/08 08/07/15 Yung Madrigal MD RETIRED PCP - Orthopaedics Orthopedics 08/26/12 01/20/24 Winston Villatoro OD [facility] [place] [address] [place] [address] PCP - Ophthalmology Ophthalmology 02/11/13 Apple Sykes MD [facility] [place] [address] [place] [address] PCP - General Family Practice 05/04/13 10/25/16 Westley Bates MD XXX RETIRED XXX [address] [place] [address] PCP - ENT Otolaryngology 05/14/13 07/28/18 [facility] APRN SENIOR COUNSEL [address] [facility] [place] [address] PCP - General Nurse Practitioner 10/26/16 02/06/17 Clara Cornell MD [address] [facility] [place] [address] PCP - General Internal Medicine 02/07/17 09/20/20 Clara Cornell MD 8675 [facility] [place] [place] [address] PCP - Assigned PCP 01/17/17 11/18/18 Denise Woodson Ra, BINDER SELECTOR SENIOR COUNSEL [address] [place] [address] PCP - General Family Practice 09/21/20 Clara Cornell MD 8675 [place], [place] [address] Assigned PCP 01/17/17 07/16/20 Denise Woodson Ra, APRN SENIOR COUNSEL [address] [place] [address] Assigned PCP 07/17/20 Usha Simon APRN SENIOR COUNSEL 909 [facility]2121[place], [place] [address] Nurse Practitioner Neurological Surgery 01/24/24 Dangelo Salinas MD 1650 [facility] 200 [place], [place] [id number] Neurology 01/27/24 documented as of this encounter
--- OUTSIDE RECORDS SUMMARY | 2024-02-02 22:36 | XMS_ITS | Encounter Summary ---
Author Name Unknown Organization [facility] Address [address] [place] [address] Care Team Providers Care Director Bioinformatics Name Role Phone Timmy Perez MD Unavailable Unavailable Yung Madrigal MD Unavailable Unavailable Frw, None Primary Care Provider Unavailabl e Winston Villatoro OD Unavailable [phone] Apple Sykes MD Primary Care Provider [phone] Westley Bates MD Unavailable [phone] Alessandra Cabrales APRN COMPUTER GRAPHIC DESIGNER Primary Car e Provider Serum, Clara Garland MD Primary Care Provider Serum, Clara Garland MD Unavailable [phone] Serum, Clara Garland MD Unavailable [phone] Denise Woodson Ra, APRN COMPUTER GRAPHIC DESIGNER Unavailable [phone]- [phone] Denise Woodson Ra, APRN COMPUTER GRAPHIC DESIGNER Primary Care Provid er Usha Simon APRN COMPUTER GRAPHIC DESIGNER Unavailable [phone]- [phone] Dangelo Salinas MD Unavailable Reason for Visit * Reason Onset Date Comments Medication Question 04/21/2013 Farhan Saez [facility] Encounter Details Date Type Department Care Team (Late st Contact Info) Description 04/21/[address] [facility] in [facility] [address] [place] [phone] Janna Rodriguez, control tower operator Question ([facility]) Social History Tobacco Use [...] 02/03/2024 8:45 AM CDT Therapy Visit [facility] [address] [phone] Denise Woodson Ra, PRE PLANNING ADVISOR COMPUTER GRAPHIC DESIGNER [address] [place] [id number] Addis Rojas, PT [facility] AMAIRANI [address] [place] [address] 02/04/[address] [facility] [address] [place] [phone] Raul Hoyos MD [address] [place] [address] *-*INCOMING RECORDS*-* 02/04/2024 11:00 AM CDT Virtual Visit [facility] Neurology [address] [phone] Raul Hoyos MD [address] [place] [address] 02/06/2024 8:30 AM CDT Office Visit [facility] [address] [place] [phone] Denise Woodson Ra, PRE PLANNING ADVISOR COMPUTER GRAPHIC DESIGNER [address] [place] [address] 02/07/2024 2:00 PM CDT Therapy Visit [address] [phone] Danya You, PA [address] [address] Charis Chacon, [facility] [address] [place] [address] 02/14/2024 12:45 PM CDT Therapy Visit [address] [phone] aDnya You, PA [address] [address] Isabel Beaulieu, OTR [facility] [address] [place] [address] 02/14/2024 2:00 PM CDT Therapy Visit [address] [phone] Danya You, AMAIRANI [address] [address] Charis Chacon, J[facility]AN [facility] [address] [place] [address] 02/14/2024 2:45 PM CDT Therapy Visit [address] [phone] Danya You, PA [address] [place] [address] [address] Maria Eugenia Nguyen, PT 2155 [place] [address] 02/17/2024 2:45 PM CDT Therapy Visit [address] [phone] Danya You, AMAIRANI 2450 [facility] [address] [address] Aliya Kim, PUBLISHING SYSTEMS ANALYST [address] [facility] 200 [place] [address] 02/19/2024 3:00 PM CDT Therapy Visit [address] [phone] Danya You, AMAIRANI [address] [place] [address] [place], [place] [address] Isabel Beaulieu, OTR [facility] 150 [place] [address] 02/26/2024 2:15 PM CDT Therapy [facility]e [address] [place] [address] Danya You, AMAIRANI [address] [address] Charis Chacon, [facility] [address] [place] [address] 02/26/2024 3:00 PM CDT Therapy Visit [address] [phone] Danya You, PA [address] [address] Isabel Beaulieu, OTR [facility] [address] [place] [address] 02/27/2024 4:45 PM CDT Therapy Visit [facility] [address] [place] [phone] Danya You, PA [address] [address] Vanessa Duggan, PT 03/05/2024 1:30 PM CDT [facility] [address] [place] [phone] Danya You, AMAIRANI [address] [address] Isabel Beaulieu, OTR [facility] [address] [place] [address] 03/05/2024 3:15 PM CDT Therapy [facility]e [address] [place] [phone] Danya You, AMAIRANI [address] [address] Charis Chacon, [facility] [address] [place] [address] 03/05/2024 4:15 PM CDT Therapy Visit [address] [phone] Danya You, PA [address] [address] Delicia George, PT [facility] [address] [place] [address] 03/11/2024 2:15 PM CDT Therapy [facility] [address] [place] [phone] Danya You, PA [address] [place] [address] Isabel Beaulieu, OTR [facility] [address] [place] [address] 03/11/2024 3:00 PM CDT Therapy [facility] [address] [place] [phone] Danya You PA [address] [place] [address] Charis Chacon SLP [facility] [address] [place] [address] 03/11/2024 4:15 PM CDT Therapy [facility] [address] [place] [address] Danya You, PA [address] [place] [address] Delicia George, PT [facility] [address] [address] 03/17/2024 1:30 PM CDT Therapy Visit [facility] [address] [place] [address] Danya You, PA [address] [address] Isabel Beaulieu, OTR [facility] [address] [place] [address] 03/17/2024 2:30 PM CDT Therapy Visit [facility] [address] [place] [address] Danya You, PA [address] [place] [address] Charis Chacon, [facility] [address] [place] [address] 03/17/2024 4:00 PM CDT Therapy Visit [facility] [address] [place] [address] Danya You PA [address] [place] [address] Delicia George, PT [facility] [address] [place] [address] 03/23/2024 10:30 AM CDT Office Visit [facility] [address] [place] [address] Denise Woodson Ra, PRE PLANNING ADVISOR COMPUTER GRAPHIC DESIGNER [address] [place], [place] [address] 03/26/2024 1:30 PM CDT Therapy Visit [address] [phone] Danya You, AMAIRANI [address] [address] Isabel Beaulieu, JAIMIE [address] [address] 03/26/2024 2:30 PM CDT Therapy Visit [address] [phone] Danya You, PA [address] [place] [address] Charis Chacon SLP [facility] [address] [place] [address] 03/26/2024 3:30 PM CDT Therapy Visit [facility] [address] [place] [address] Danya You, AMAIRANI [address] [address] Delicia George, PT [address] [address] 04/02/2024 2:15 PM CDT Therapy Visit [address] [phone] Danya You, PA [address] [address] Isabel Beaulieu, OTJah [address] [address] 04/02/2024 3:15 PM CDT Therapy Visit [address] [phone] Danya You, PA [facility] [place] [address] [address] Charis Chacon, PUBLISHING SYSTEMS ANALYST [facility] [address] [place] [address] 04/02/2024 4:15 PM CDT Therapy Visit [address] [phone] Danya You, PA 2450 [place] [address] [address] Delicia George, PT [address] [address] 04/09/2024 3:15 PM CDT Therapy Visit [address] [address] Danya You, PA [address] [place] [address] Charis Chacon, [facility] [address] [place] [address] 04/09/2024 4:15 PM CDT Therapy Visit [address] [address] Danya You, PA [address] [place] [address] Delicia George, PT [facility] [address] [place] [address] 04/15/2024 9:30 AM CDT Therapy Visit [address] [phone] Danya You, PA [address] [place] [address] Danya Restrepo, PUBLISHING SYSTEMS ANALYST 04/23/2024 2:30 PM CDT Therapy Visit [address] 88[address] Danya You, PA [address] [place] [address] Charis Chacon, [facility] [address] [place] [address] 06/23/2024 11:00 AM CDT Virtual Visit [facility] [address] [address] Kristin Vázquez, [facility] [address] [place] [address] 06/30/2024 2:00 PM CDT Virtual Visit [facility] [address] [address] Kristin Vázquez, [facility] [address] [place] [phone] documented as of this encounter Visit Diagnoses Not on filedocumented in this encounter Care Teams Director Bioinformatics Relationship Specialty Start Date End Date Timmy Perez MD PCP - Obstetrics/Gynecology 03/02/08 08/07/15 Yung Madrigal MD RETIRED PCP - Orthopaedics Orthopedics 08/26/12 01/20/24 Frw, None PCP - General Family Practice 08/26/12 05/03/13 Winston Villatoro, [facility] [place] [address] [place] [address] PCP - Ophthalmology Ophthalmology 02/11/13 Apple Sykes MD [facility] [place] [address] [place] [address] PCP - General Family Practice 05/04/13 10/25/16 Westley Bates MD XXX RETIRED XXX 701 [facility] 95 [place] [address] PCP - ENT Otolaryngology 05/14/13 07/28/18 Georgina-Alessandra Gómez APRN COMPUTER GRAPHIC DESIGNER [address] [facility] [place] [address] PCP - General Nurse Practitioner 10/26/16 02/06/17 Clara Cornell MD [address] [facility] [place] [address] PCP - General Internal Medicine 02/07/17 09/20/20 Clara Cornell MD 8675 [place] [address] PCP - Assigned PCP 01/17/17 11/18/18 Denise Woodson Ra, APRN COMPUTER GRAPHIC DESIGNER [address] [place] [id number] PCP - General Family Practice 09/21/20 Clara Cornell MD 8675 [place] [address] Assigned PCP 01/17/17 07/16/20 Denise Woodson Ra, APRN COMPUTER GRAPHIC DESIGNER [address] [place] [id number] Assigned PCP 07/17/20 Usha Simon APRN COMPUTER GRAPHIC DESIGNER [id number] [place] [address] Nurse Practitioner Neurological Surgery 01/24/24 Dangelo Salinas MD [address] [place] [address] Neurology 01/27/24 documented as of this encounter
--- OUTSIDE RECORDS SUMMARY | 2024-02-02 22:36 | XMS_ITS | Encounter Summary ---
Author Name Unknown Organization [facility] Address [address] [place] [address] Care Team Providers Care Aerosol Line Operator Name Role Phone Timmy Perez MD Unavailable Unavailable Yung Madrigal MD Unavailable Unavailable Frw, None Primary Care Provider Unavailabl e Winston Villatoro OD Unavailable [phone] Apple Syeks MD Primary Care Provider [phone] Westley Bates MD Unavailable [phone] Alessandra Cabrales APRN DIRECTOR OF BLOOD Primary Car e Provider Serum, Clara Garland MD Primary Care Provider Serum, Clara Garland MD Unavailable [phone] Serum, Clara Garland MD Unavailable [phone] Denise Woodson Ra, APRN DIRECTOR OF BLOOD Unavailable + [phone] Denise Woodson Ra, APRN DIRECTOR OF BLOOD Primary Care Provid er Usha Simon APRN DIRECTOR OF BLOOD Unavailable [phone]- [phone] Dangelo Salinas MD Unavailable Encounter Details Date Type Department Care Team (Late st Contact Info) Description 01/30/2006 [facility] [place] Inpatient Dept [address] [place] [address] Frw, Inpatient Provider Social History [...] pain. PROCEDURE: TOTAL VAGINAL HYSTERECTOMY. SURGEON: Chris GEOMETRY PROFESSOR: Radha ANESTHESIA: Spinal ESTIMATED BLOOD LOSS: 100 [...] Description 02/03/2024 8:45 AM CDT Therapy Visit [address] [phone] Denise Woodson Ra, CAR REPAIR SUPERVISOR DIRECTOR OF BLOOD [address] [place] [address] Addis Rojas, PT [facility] [address] [place] [address] 02/04/2024 PRE VISIT [facility] Neurology [address] [phone] Raul Hoyos MD [address] [place] [address] *-*INCOMING RECORDS*-* 02/04/2024 11:00 AM CDT Virtual Visit [facility] Neurology [address] [phone] Raul Hoyos MD [address] [place] [address] 02/06/2024 8:30 AM CDT Office Visit [facility] [address] [place] [phone] Denise Woodson Ra, CAR REPAIR SUPERVISOR DIRECTOR OF BLOOD [address] [place] [address] 02/07/2024 2:00 PM CDT Therapy Visit [address] [phone] Danya You, AMAIRANI 2450 [facility] [address] [place] [address] Charis Chaocn SLP [facility] [address] [place] [address] 02/14/2024 12:45 PM CDT Therapy Visit [address] [phone] Danya You, PA 2450 [facility] [address] [place] [address] Isabel Beaulieu OTR [address] [address] 02/14/2024 2:00 PM CDT Therapy Visit [address] [phone] Danya You, PA 2450 [facility] [address] [place] [address] Charis Chacon SLP [place] [address] [place] [address] 02/14/2024 2:45 PM CDT Therapy Visit [address] [phone] Danya You, PA 2450 [facility] [address] [place] [address] Maria Eugenia Nguyen, PT 2155 [place] [address] 02/17/2024 2:45 PM CDT Therapy Visit [address] [phone] Danya You, PA [address] [place] [address] Aliya Kim, FILTER CLEANER [address] [address] 02/19/2024 3:00 PM CDT Therapy Visit [address] 47568-[address] Danya You, PA [address] [address] Isabel Beaulieu, OTR [address] [address] 02/26/2024 2:15 PM CDT Therapy Visit [address] [phone] Danya You, PA [address] [address] Charis Chacon, J[facility] [address] [place] [address] 02/26/2024 3:00 PM CDT Therapy Visit [address] [phone] Danya You PA [address] [address] Isabel Beaulieu, [facility] [address] [place] [address] 02/27/2024 4:45 PM CDT [facility] [address] [place] [phone] Danya You, PA [address] 7[address] Vanessa Duggan, PT 03/05/2024 1:30 PM CDT Therapy Visit [address] [phone] Danya You, PA [address] 7914[address] Isabel Beaulieu, OTR [facility] [address] [place] [address] 03/05/2024 3:15 PM CDT Therapy Visit [address] [phone] Danya You, PA [address] [address] Charis Chacon, [facility] [address] [place] [address] 03/05/2024 4:15 PM CDT Therapy Visit [facility] [address] [place] [address] Danya You, PA [address] 7599[address] Delicia George PT [address] [address] 03/11/2024 2:15 PM CDT Therapy Visit [address] [phone] Danya You, PA 2450 [facility] [address] [address] Isabel Beaulieu, OTR [address] [address] 03/11/2024 3:00 PM CDT Therapy Visit [address] [phone] Danya You, PA [address] [address] Charis Chacon, [facility] [address] [place] [address] 03/11/2024 4:15 PM CDT Therapy Visit [address] [phone] Danya You, PA [facility], 1927–[address] [address] Delicia George, PT [facility] [address] [place] [address] 03/17/2024 1:30 PM CDT Therapy Visit [address] [phone] Danya You, PA 2450 [facility] 213 [place] [address] Isabel Beaulieu, OTR [address] [address] 03/17/2024 2:30 PM CDT Therapy Visit [address] [phone] [place], [place] [address] [address] Charis Chacon SLP [facility] [address] [place] [address] 03/17/2024 4:00 PM CDT Therapy Visit [address] [phone] [place]anya [place], PA [address] 524[address] Delicia George, PT [facility] [address] [place] [address] 03/23/2024 10:30 AM CDT Office Visit [facility] [address] [place] [phone] Denise Woodson Ra, CAR REPAIR SUPERVISOR [facility] [address] [place] [address] 03/26/2024 1:30 PM CDT Therapy Visit [address] [phone] Danya You, AMAIRANI [address] [place] [address] Isabel Beaulieu, OTR [facility] [address] [place] [address] 03/26/2024 2:30 PM CDT Therapy Visit [facility] 150 [place] [phone] Danya You, PA [address] [address] Charis Chacon, [facility] [address] [place] [address] 03/26/2024 3:30 PM CDT Therapy Visit [address] [phone] Danya You, PA [address] 9834[address] Delicia George, PT [facility] [address] [place] [address] 04/02/2024 2:15 PM CDT Therapy [facility] [address] [place] [address] Danya You, PA [address] [address] Isabel Beaulieu, [facility]TR [facility] [address] [place] [address] 04/02/2024 3:15 PM CDT Therapy Visit [address] [phone] Danya You PA [address] [place] [address] Charis Chacon SLP [facility] [address] [place] [address] 04/02/2024 4:15 PM CDT Therapy Visit [address] [phone] Danya You PA [address] [address] Delicia George, PT [address] [address] 04/09/2024 3:15 PM CDT Therapy Visit [address] [phone] Danya You PA [facility], 1928–[address] [address] [address] Charis Chacon SLP [facility] [address] [place] [address] 04/09/2024 4:15 PM CDT Therapy Visit [address] [phone] Danya You PA [facility], 1928–[address] [address] [address] Delicia George, PT [address] [place] [address] 04/15/2024 9:30 AM CDT Therapy Visit [address] [address] Danya You, PA [address] [address] Danya Restrepo FILTER CLEANER 04/23/2024 2:30 PM CDT Therapy Visit [address] [phone] Danya You, PA [address] [address] Charis Chacon, [facility] [address] [place] [address] 06/23/2024 11:00 AM CDT Virtual Visit [facility] [address] [place] [address] Kristin Vázquez, [facility] [address] [place] [address] 06/30/2024 2:00 PM CDT Virtual Visit [facility] [address] [place] [address] Kristin Vázquez, [facility] [address] [place] [address] documented as of this encounter Visit Diagnoses Not on filedocumented in this encounter Care Teams Aerosol Line Operator Relationship Specialty Start Date End Date Timmy Perez MD PCP - Obstetrics/Gynecology 03/02/08 08/07/15 Yung Madrigal MD RETIRED PCP - Orthopaedics Orthopedics 08/26/12 01/20/24 Frw, None PCP - General Family Practice 08/26/12 05/03/13 Winston Villatoro, OD [facility] [place] [address] [place] [address] PCP - Ophthalmology Ophthalmology 02/11/13 Apple Sykes MD [facility] [place] [address] [place] [address] PCP - General Family Practice 05/04/13 10/25/16 Westley Bates MD XXX RETIRED XXX [address] [place] [address] PCP - ENT Otolaryngology 05/14/13 07/28/18 GeorginaAlessandra Gómez APRN DIRECTOR OF BLOOD 3305 [facility] [place] [address] PCP - General Nurse Practitioner 10/26/16 02/06/17 Clara Cornell MD 3305 [facility] [place] [address] PCP - General Internal Medicine 02/07/17 09/20/20 Clara Cornell MD 8675 [place] [address] PCP - Assigned PCP 01/17/17 11/18/18 Denise Woodson Ra, CAR REPAIR SUPERVISOR DIRECTOR OF BLOOD [address] [place] [place] [address] PCP - General Family Practice 09/21/20 Clara Cornell MD [address]75 [place] [address] Assigned PCP 01/17/17 07/16/20 Denise Woodson Ra, APRN DIRECTOR OF BLOOD [address] [place] [address] Assigned PCP 07/17/20 Usha Simon APRN DIRECTOR OF BLOOD [address] [facility] [place] [address] Nurse Practitioner Neurological Surgery 01/24/24 Dangelo Salinas MD [address] [place] [address] Neurology 01/27/24 documented as of this encounter
--- OUTSIDE RECORDS SUMMARY | 2024-02-02 22:36 | XMS_ITS | Encounter Summary ---
Author Name Unknown Organization [place] Address [address] [place] [address]. [place] [address] Care Team Providers Care Gift Wrapper Name Role Phone Timmy Perez MD Unavailable Unavailable Encounter Details Date Type Department Care Team (Late st Contact Info) Description 01/17/2012 3:20 PM CDT [facility] [address] [place] [phone] Luis Walsh [address] [place] [address] Interface, Profiler OperatorMD Social History Tobacco Use Types Packs/Day Years [...] Visit [facility] Rehabilitation Services [address] [address] Denise Woodson Ra, MAT REPAIRER MACHINIST APPRENTICE WOOD [address] [place] [address] Addis Rojas, PT [facility] [address] [place] [address] 02/04/2024 PRE VISIT [facility] [address] 3rd [place] [phone] Raul Hoyos MD [address] [place] [phone] *-*INCOMING RECORDS*-* 02/04/2024 11:00 AM CDT Virtual Visit [facility] [address] [phone] Raul Hoyos MD [address] [place] [address]355 02/06/2024 8:30 AM CDT Office Visit [facility] [address] [place] [phone] Denise Woodson Ra, MAT REPAIRER MACHINIST APPRENTICE WOOD [address] [place], [place] [address] 02/07/2024 2:00 PM CDT Therapy Visit [address] [phone] Danya You, PA [address] [address] Charis Chacon, [facility] [address] [place] [address] 02/14/2024 12:45 PM CDT Therapy Visit [address] [phone] Danya You PA [facility]0 [facility] [address] [address] Isabel Beaulieu, OTR [facility] 150 [place] [address] 02/14/2024 2:00 PM CDT Therapy Visit [address] [phone] Danya You, AMAIRANI 2450 [facility] [address] [place] [address] Charis Chacon, J[facility]AN [facility] [address] [place] [address] 02/14/2024 2:45 PM CDT Therapy Visit [address] [phone] Danya You, PA 2450 [facility] [address] [place] [address] Maria Eugenia Nguyen, PT 2[address] [place] [address] 02/17/2024 2:45 PM CDT Therapy Visit [address] [phone] Danya You, AMAIRANI 2450 [facility] [address] [place] [address] Aliya Kim, STORAGE GARAGE MANAGER [address] [address] 02/19/2024 3:00 PM CDT Therapy Visit [address] [phone] Danya You, PA 2450 [address] [place] [address] Isabel Beaulieu, OTR [facility] 150 [facility] [place] [address] 02/26/2024 2:15 PM CDT Therapy Visit [facility] 150 [place] [phone] Danya You, AMAIRANI [address] [place] [address] [address] [place] [address] Chairs Chacon, [facility] [address] [place] [address] 02/26/2024 3:00 PM CDT Therapy Visit [facility] 150 [place] [address] Danya You PA [address] [place] [address] [address] [place] [address] Isabel Beaulieu, OTR [facility] 150 [place] [address] 02/27/2024 4:45 PM CDT Therapy Visit [facility] [address] [place] [address] Danya You PA [address] [place] [address] [place] [address] Vanessa Duggan, PT 03/05/2024 1:30 PM CDT Therapy Visit [facility] 150 [place] [phone] Danya You PA [address] [place] [place] [address] Isabel Beaulieu, OTR FV [address] [address] 03/05/2024 3:15 PM CDT Therapy Visit [facility] 150 [place] [phone] Danya You, PA [address] [place] [address] [place] [address] Charis Chacon, [facility] [address] [place] [address] 03/05/2024 4:15 PM CDT Therapy Visit [address] [phone] Danya You, PA [address] [place] [address] 508[address] Delicia George, PT [facility] [address] [place] [address] 03/11/2024 2:15 PM CDT Therapy Visit [address] [phone] Danya You, PA [address] [place] [address] [place] [address] Isabel Beaulieu, OTR FV [address] [address] 03/11/2024 3:00 PM CDT Therapy Visit [place] [address] [place] [phone] Danya You, AMAIRANI 2450 [address] [address] Charis Chacon, [facility] [address] [place] [address] 03/11/2024 4:15 PM CDT Therapy Visit [address] [phone] Danya You, PA 2450 [facility] [address] [address] Delicia George, PT [facility] [address] 732985 03/17/2024 1:30 PM CDT Therapy Visit [address] [phone] Danya You, PA 2450 [facility] [address] [address] Isabel Beaulieu, OTR [address] [address] 03/17/2024 2:30 PM CDT Therapy Visit [address] [phone] Danya You, PA [facility]iatric [facility] [address] [address] Charis Chacon, [facility] [address] [place] [address] 03/17/2024 4:00 PM CDT Therapy Visit [facility] 150 [place] [phone] Danya You, PA 2450 [facility] [address] [place], [place] 3734[address] Delicia George, PT [facility] [address] [place] [address] 03/23/2024 10:30 AM CDT Office Visit [facility] [address] [place] [phone] Denise Woodson Ra, MAT REPAIRER MACHINIST APPRENTICE WOOD [address] [place], [place] 2556[address] 03/26/2024 1:30 PM CDT Therapy Visit [address] [phone] Danya You, PA [address] [address] Isabel Beaulieu, JAIMIE [address] [address] 03/26/2024 2:30 PM CDT Therapy Visit [address] [phone] [place], [place] [address] [address] Charis Chacon, [facility] [address] [place] [address] 03/26/2024 3:30 PM CDT Therapy Visit [address] [phone] Danya You PA 2450 [address] [place] [address] Delicia George, PT [facility] [address] [address] 04/02/2024 2:15 PM CDT Therapy Visit [address] [phone] Danya You, AMAIRANI 2450 [address] [place] [address] Isabel Beaulieu, OTJah [address] [address] 04/02/2024 3:15 PM CDT Therapy Visit [address] 79[address]-980214 Danya You, PA 2450 [address] [place] [address] Charis Chacon, [facility] [address] [place] [address] 04/02/2024 4:15 PM CDT Therapy Visit [address] [phone] Danya You, AMAIRANI 2450 [place] [place] [address] Delicia George, PT [address] [address] 04/09/2024 3:15 PM CDT Therapy Visit [address] [phone] Danya You, PA [address] MB [address] [place] [address] Charis Chacon, [facility] [address] [place] [address] 04/09/2024 4:15 PM CDT Therapy Visit [address] [phone] Danya You, PA [address] MB [address] [place] [address] Delicia George, PT [address] [address] 04/15/2024 9:30 AM CDT Therapy Visit [address] [phone] Danya You PA [address] MB [address] [place] [address] Danya Restrepo, STORAGE GARAGE MANAGER 04/23/2024 2:30 PM CDT Therapy Visit [address] [address]65[address] Danya You, PA [address]50 [address] [place] [address] Charis Chacon, STORAGE GARAGE MANAGER [facility] [address] [place] [address] 06/23/2024 11:00 AM CDT Virtual Visit [facility] Mental Health & Addiction [address] [address] Kristin Vázquez, [facility] [address] [place] [address] 06/30/2024 2:00 PM CDT Virtual Visit [facility] [address] [place] [address] Kristin Vázquez, [facility] [address] [place] [address] documented as of this encounter Visit Diagnoses Not on filedocumented in this encounter Care Teams Gift Wrapper Relationship Specialty Start Date End Date Timmy Perez MD PCP - Obstetrics/Gynecology 03/02/0807/18 documented as of this encounter
--- OUTSIDE RECORDS SUMMARY | 2024-02-02 22:36 | XMS_ITS | Encounter Summary ---
Author Name Unknown Organization [place] Address [address] [place] [address] Care Team Providers Care Encyclopedia Research Worker Name Role Phone Timmy Perez MD Unavailable Unavailable Yung Madrigal MD Unavailable Unavailable Winston Villatoro OD Unavailable [phone] Apple Sykes MD Primary Care Provider [phone] Westley Bates MD Unavailable [phone] Alessandra Cabrales APRN SEARCH ENGINE OPTIMIZATION CONSULTANT Primary Car e Provider Serum, Clara Garland MD Primary Care Provider Serum, Clara Garland MD Unavailable [phone] Serum, Clara Garland MD Unavailable [phone] Denise Woodson Ra, APRN SEARCH ENGINE OPTIMIZATION CONSULTANT Unavailable + [phone] Denise Woodson Ra, APRN SEARCH ENGINE OPTIMIZATION CONSULTANT Primary Care Provid er Usha Simon APRN SEARCH ENGINE OPTIMIZATION CONSULTANT Unavailable + [phone] Dangelo Salinas MD Unavailable Reason for Visit * Reason Onset Date Comments MyChart Communication 05/30/2013 Encounter Details Date Type Department Care Team (Latest Contact Info) Description 05/30/2013 MyC Medical Advice [facility] in [facility] [address] [place] [phone] Apple Sykes MD [address] [place] [address] MyChart Communication Social History Tobacco Use Types [...] Description 02/03/2024 8:45 AM CDT Therapy Visit [facility] [address] [phone] Denise Woodson Ra, ANALYTICAL CHEMISTRY TEACHER SEARCH ENGINE OPTIMIZATION CONSULTANT [address] [place], [place] [phone] Addis Rojas, PT [facility] [address] [place], [place] [phone] 02/04/2024 PRE VISIT [facility] [address] [address] Raul Hoyos MD [address] [place] [address] *-*INCOMING RECORDS*-* 02/04/2024 11:00 AM CDT Virtual Visit [facility] [address] [address] Raul Hoyos MD [address] [place] [address] 02/06/2024 8:30 AM CDT Office Visit [facility] [address] [place] [phone] Denise Woodson Ra, ANALYTICAL CHEMISTRY TEACHER SEARCH ENGINE OPTIMIZATION CONSULTANT [address] [place] [address] 02/07/2024 2:00 PM CDT Therapy Visit [facility] 150 [place] [address] Danya You, AMAIRANI [address] [place] [address] Charis Chacon, [facility] [address] [place] [address] 02/14/2024 12:45 PM CDT Therapy Visit [address] [phone] Danya You, AMAIRANI Muller0 [place] S[place] [address] [place] [address] Isabel Beaulieu, OTR [facility] 150 [place] [address] 02/14/2024 2:00 PM CDT Therapy Visit [address] [phone] Danya You, PA [address] [place] [address] Charis Chacon, [facility] [address] [place] [address] 02/14/2024 2:45 PM CDT Therapy Visit [address] [phone] Danya You, AMAIRANI [address] [place] [address] Maria Eugenia Nguyen, PT [address] [place] [address] 02/17/2024 2:45 PM CDT Therapy Visit [facility] 150 [place] [phone] Danya You, PA [address] [place] [address] Aliya Kim, SCREEDMAN/LABORER [address] [facility] 200 [place] [address] 02/19/2024 3:00 PM CDT Therapy Visit [facility] 150 [place] [address] Danya You, PA [address] [place] [address] Isabel Beaulieu, OTR [address] [address] 02/26/2024 2:15 PM CDT Therapy Visit [facility] 150 [place] [phone] Danya You, PA 2450 [facility] [address] [place] [address] Charis Chacon, [facility] [address] [place] [address] 02/26/2024 3:00 PM CDT Therapy Visit [facility] 150 [place] [phone] Danya You PA 2450 [facility] 213 [place] [address] Isabel Beaulieu, OTR FV [facility] [address] [place] [address] 02/27/2024 4:45 PM CDT Therapy Visit [facility] 150 [place] [phone] Danya You, PA [address] 158564 Vanessa Duggan, PT 03/05/2024 1:30 PM CDT Therapy Visit [facility] 150 [place] [phone] Danya You, AMAIRANI 2450 [facility] [address] [address] Isabel Beaulieu, [facility] [address] [place] [address] 03/05/2024 3:15 PM CDT Therapy Visit [facility] [address] [place] [phone] Danya You, PA [address] [address] Charis Chacon, [facility] [address] [place] [address] 03/05/2024 4:15 PM CDT Therapy Visit [facility] 150 [place] [phone] Danya You PA [address] [place] [address] Delicia George, PT [address] [address] 03/11/2024 2:15 PM CDT Therapy Visit [facility] [address] [place] [phone] Danya You, PA [address] [place] [address] [address] Isabel Beaulieu, JAIMIE [address] [address] 03/11/2024 3:00 PM CDT Therapy Visit [address] [phone] Danya You, PA [address] [address] Charis Chacon, [facility] [address] [place] [address] 03/11/2024 4:15 PM CDT Therapy Visit [address] [phone] Danya You, PA 2450 [address] CHARLES [address] [place] [address] Delicia George, PT [address] [address] 03/17/2024 1:30 PM CDT Therapy Visit [address] [phone] Danya You, AMAIRANI [address] [address] Isabel Beaulieu, OTR [address] [address] 03/17/2024 2:30 PM CDT Therapy Visit [address] [phone] Danya You, PA [address] [address] Charis Chacon SLP [facility] [address] [place] [address] 03/17/2024 4:00 PM CDT Therapy Visit [address] [phone] Danya You, PA [address] [place] [address] Delicia George, PT [facility] [address] [place] [address] 03/23/2024 10:30 AM CDT Office Visit [facility] [address] [place] [address] Denise Woodson Ra, ANALYTICAL CHEMISTRY TEACHER SEARCH ENGINE OPTIMIZATION CONSULTANT [address] [place], [place] 8[address] 03/26/2024 1:30 PM CDT Therapy Visit [facility] 150 [place] [phone] Danya You, AMAIRANI [address]50 [address] [address] Isabel Beaulieu, OTR [address] [address] 03/26/2024 2:30 PM CDT Therapy Visit [address] [phone] Danya You, AMAIRANI [facility] [place] [address] [address] Charis Chacon, SCREEDMAN/LABORER [facility] [address] [place] [address] 03/26/2024 3:30 PM CDT Therapy Visit [address] [phone] Danya You, AMAIRANI [facility] [place] [address] [address] Delicia George, PT [facility] [address] [address] 04/02/2024 2:15 PM CDT Therapy Visit [address] [phone] Danya You PA [facility] [place] [address] [address] Isabel Beaulieu, OTR [facility] [address] [place] [address] 04/02/2024 3:15 PM CDT Therapy Visit [address] [phone] Danya You, AMAIRANI 2450 [address] [place] [address] Charis Chacon SLP [facility] [address] [place] [address] 04/02/2024 4:15 PM CDT Therapy Visit [address] [phone] Danya You, AMAIRANI 2450 [address] [place] [address] Delicia George, PT [facility] [address] [place] [address] 04/09/2024 3:15 PM CDT Therapy Visit [address] [phone] Danya You, PA 2450 [address] [place] [address] Chairs Chacon, [facility] [address] [place], [place] [address] 04/09/2024 4:15 PM CDT Therapy Visit [address] [address] Danya You, AMAIRANI [address] [place] [address] eDlicia George, PT [facility] [address] [place] [address] 04/15/2024 9:30 AM CDT Therapy Visit [address] [address] Danya You, PA [address] [place] [address] Danya Restrepo, SCREEDMAN/LABORER 04/23/2024 2:30 PM CDT Therapy Visit [address] [phone] Danya Yuo, PA [address] [place] [address] Charis Chacon, [facility] [address] [place] [address] 06/23/2024 11:00 AM CDT Virtual Visit [facility] [address] [address] Kristin Vázquez, [facility] 7[address] [place] [address] 06/30/2024 2:00 PM CDT Virtual [facility] [address]01 [place] [address] Kristin Vázquez, [facility] [address] [place] [address] documented as of this encounter Visit Diagnoses Not on filedocumented in this encounter Care Teams Encyclopedia Research Worker Relationship Specialty Start Date End Date Timmy Perez MD PCP - Obstetrics/Gynecology 03/02/08 08/07/15 Yung Madrigal MD RETIRED PCP - Orthopaedics Orthopedics 08/26/12 01/20/24 Winston Villatoro, AMELIE [facility] [place] [address] [place] [address] PCP - Ophthalmology Ophthalmology 02/11/13 Apple Sykes MD [facility] [place] [address] [place] [address] PCP - General Family Practice 05/04/13 10/25/16 Westley Bates MD XXX RETIRED XXX [address] [place] [address] PCP - ENT Otolaryngology 05/14/13 07/28/18 [facility] APRN SEARCH ENGINE OPTIMIZATION CONSULTANT [address] [facility] [place] [address] PCP - General Nurse Practitioner 10/26/16 02/06/17 Clara Cornell MD 3[address] [facility] [place] [address] PCP - General Internal Medicine 02/07/17 09/20/20 Clara [facility] [address] [facility] - Assigned PCP 01/17/17 11/18/18 Denise Woodson Ra, APRN SEARCH ENGINE OPTIMIZATION CONSULTANT [address] [place] [address] PCP - General Family Practice 09/21/20 Clara Cornell MD [address]75 [place] [address] Assigned PCP 01/17/17 07/16/20 Denise Woodson Ra, APRN SEARCH ENGINE OPTIMIZATION CONSULTANT [address] [place] [address] Assigned PCP 07/17/20 Usha Simon APRN SEARCH ENGINE OPTIMIZATION CONSULTANT 9 [facility] [address] Nurse Practitioner Neurological Surgery 01/24/24 Dangelo Salinas MD [address] [place] [address] Neurology 01/27/24 documented as of this encounter
--- OUTSIDE RECORDS SUMMARY | 2024-02-02 22:36 | XMS_ITS | Encounter Summary ---
Author Name Unknown Organization [place] Address [address] [place] [address] Care Team Providers Care Gummed Tape Press Operator Name Role Phone Timmy Perez MD Unavailable Unavailable Yung Madrigal MD Unavailable Unavailable Winston Villatoro OD Unavailable [phone] Apple Sykes MD Primary Care Provider [phone] Westley Bates MD Unavailable [phone] Alessandra Cabrales APRN EGG PASTEURIZER Primary Car e Provider Serum, Clara Garland MD Primary Care Provider Serum, Clara Garland MD Unavailable [phone] Serum, Clara Garland MD Unavailable [phone] Denise Woodson Ra, APRN EGG PASTEURIZER Unavailable + [phone] Densie Woodson Ra, APRN EGG PASTEURIZER Primary Care Provid er Usha Simon APRN EGG PASTEURIZER Unavailable [phone] Dangelo Salinas MD Unavailable Encounter Details Date Type Department Care Team (Late st Contact Info) Description 05/19/2013 MyC Medical Advice [facility] [place] Orthopedics [address] [place] [address] Yung Madrigal MD RETIRED Social [...] Description 02/03/2024 8:45 AM CDT Therapy Visit [address] [phone] Denise Woodson Ra, WHOLESALE BUYER EGG PASTEURIZER [address] [employer], [place] [phone] Addis Rojas, PT [facility] [address] [place] [address] 02/04/2024 PRE VISIT [facility] Neurology [address] [phone] Raul Hoyos MD [address] [place] [address] *-*INCOMING RECORDS*-* 02/04/2024 11:00 AM CDT Virtual Visit [facility] Neurology [address] [phone] Raul Hoyos MD [address] [place] [address] 02/06/2024 8:30 AM CDT Office Visit [facility] [address] [place] [phone] Denise Woodson Ra, WHOLESALE BUYER EGG PASTEURIZER [address] [place], [place] [id number] 02/07/2024 2:00 PM CDT Therapy Visit [facility] [address] [place] [phone] Danya You, AMAIRANI [address] [facility] [address] [place] [address] Charis Chacon, J[facility] [address] [place] [address] 02/14/2024 12:45 PM CDT Therapy Visit [address] [phone] Danya You, AMAIRANI [address] [facility] [address] [place] [address] Isabel Beaulieu, OTR [address] [address] 02/14/2024 2:00 PM CDT Therapy Visit [address] [phone] Danya You, PA 2450 [facility] [address] [place] [address] Charis Chacon SLP [place] [address] [place] [address] 02/14/2024 2:45 PM CDT Therapy Visit [address] [phone] Danya You, PA [address] [facility] [address] [place] [address] Maria Eugenia Nguyen, PT [address] [place] [address] 02/17/2024 2:45 PM CDT Therapy Visit [address] [phone] Danya You, AMAIRANI [address] [place] [address] Aliya Kim, STAFF VETERINARIAN [address] [facility] [address] [place] [address] 02/19/2024 3:00 PM CDT Therapy Visit [address] [phone] Danya You, AMAIRANI [address] [facility] [address] [address] Isabel Beaulieu OTR [facility] [address] [address] 02/26/2024 2:15 PM CDT Therapy Visit [address] [phone] Danya You, PA [address] [address] Charis Chacon, [facility] [address] [place] [address] 02/26/2024 3:00 PM CDT Therapy Visit [address] [phone] Danya You PA [address] [facility] [address] [place] [address] Isabel Beaulieu OTR [facility] [address] [place] [address] 02/27/2024 4:45 PM CDT Therapy Visit [facility] [address] [place] [phone] Danya You, PA [address] 221694 Vanessa Duggan, PT 03/05/2024 1:30 PM CDT Therapy Visit [address] [phone] Danya You, PA [address] 606[address] Isabel Beaulieu, OTR [facility] [address] [place] [address] 03/05/2024 3:15 PM CDT Therapy Visit [address] [phone] Danya You, PA [address] [address] Charis Chacon, STAFF VETERINARIAN [facility] 3[facility] [address] [place] [address] 03/05/2024 4:15 PM CDT Therapy Visit [address] [phone] Danya You, PA [address] 9[address] Delicia George, PT [address] [address] 03/11/2024 2:15 PM CDT Therapy Visit [address] [phone] Danya You, AMAIRANI [address] [place] [address] [place] [address] Isabel Beaulieu, OTR [address] [address] 03/11/2024 3:00 PM CDT Therapy Visit [address] [phone] Danya You, PA [address] [address] Charis Chacon, [facility] [address] [place] [address] 03/11/2024 4:15 PM CDT Therapy Visit [address] [phone] Danya You, PA 2450 [facility] [address] [address] Delicia George, PT [facility] [address] [place] [address] 03/17/2024 1:30 PM CDT Therapy Visit [address] [phone] Danya You, PA [address] [facility] [address] [place] [address] Isabel Beaulieu, OTR [facility] [address] [place] [address] 03/17/2024 2:30 PM CDT Therapy Visit [address] [phone] Danya You, PA [address] [address] Charis Chacon, STAFF VETERINARIAN [facility] [address] [place] [address] 03/17/2024 4:00 PM CDT Therapy Visit [address] [phone] Danya [place], [place] [address] 422544 Delicia George, PT [facility] [address] [place] [address] 03/23/2024 10:30 AM CDT Office Visit [facility] [address] [place] [phone] Denise Woodson Ra, WHOLESALE BUYER [facility] [address] [place], [place] [address] 03/26/2024 1:30 PM CDT Therapy Visit [address] [phone] Danya You, PA [address] [place] [address] [place] [address] Isabel Beaulieu, OTR [facility]ORE[facility]IDIGN[facility] [address] [place] [address] 03/26/2024 2:30 PM CDT Therapy Visit [address] [phone] Danya You, AMAIRANI [address] [address] Charis Chacon, [facility] [address] [place] [address] 03/26/2024 3:30 PM CDT Therapy Visit [address] [phone] Danya You PA [address] [address] Delicia George, PT [facility] [address] [place] [address] 04/02/2024 2:15 PM CDT Therapy Visit [facility] [address] [phone] Danya You, AMAIRANI [address] [place] [address] [place] [address] Isabel Beaulieu, OTR [facility] GOMEZDIGN[facility] [address] [place] [address] 04/02/2024 3:15 PM CDT Therapy Visit [address] [phone] Danya You PA [address] [address] Charis Chacon SLP [facility] [address] [place] [address] 04/02/2024 4:15 PM CDT Therapy Visit [address] [phone] Danya You, AMAIRANI [address] [address] Delicia George, PT [address] [address] 04/09/2024 3:15 PM CDT Therapy Visit [address] [phone] Danya You, PA [facility] [address] [address] Charis Chacon, [facility] [address] [place] [address] 04/09/2024 4:15 PM CDT Therapy Visit [address] [phone] Danya You PA [facility] [facility] [address] [address] Delicia George, PT [address] [address] 04/15/2024 9:30 AM CDT Therapy Visit [facility] [address] [place] [address] Danya You, PA [address] [address] Danya Restrepo, STAFF VETERINARIAN 04/23/2024 2:30 PM CDT Therapy Visit [address] [phone] Danya You, PA [address] [facility] [address] [address] Charis Chacon, [facility] [address] [place] [address] 06/23/2024 11:00 AM CDT Virtual Visit [facility] Mental Health & Addiction [facility] [address] [place] [address] Kristin Vázquez, [facility] [address] [place] [address] 06/30/2024 2:00 PM CDT Virtual Visit [facility] Mental Health & Addiction [facility] [address] [place] [address] Kristin Vázquez, [facility] [address] [place] [address] documented as of this encounter Visit Diagnoses Not on filedocumented in this encounter Care Teams Gummed Tape Press Operator Relationship Specialty Start Date End Date Timmy Perez MD PCP - Obstetrics/Gynecology 03/02/08 08/07/15 Yung Madrigal MD RETIRED PCP - Orthopaedics Orthopedics 08/26/12 01/20/24 Winston Villatoro OD [facility] [place] [address] [place] [address] PCP - Ophthalmology Ophthalmology 02/11/13 Apple Sykes MD [facility] [place] [address] [place] [address] PCP - General Family Practice 05/04/13 10/25/16 Westley Bates MD XXX RETIRED XXX [address] [place] [address] PCP - ENT Otolaryngology 05/14/13 07/28/18 [facility] G[facility] APRN EGG PASTEURIZER [address] [facility] [place] [address] PCP - General Nurse Practitioner 10/26/16 02/06/17 Clara Cornell MD [address] [facility] [place] [address] PCP - General Internal Medicine 02/07/17 09/20/20 Clara Cornell MD 8675 [place] [address] PCP - Assigned PCP 01/17/17 11/18/18 Denise Woodson Ra, WHOLESALE BUYER EGG PASTEURIZER [address] [place] [address] PCP - General Family Practice 09/21/20 Clara Cornell MD 8675 [place], [place] [phone] Assigned PCP 01/17/17 07/16/20 Denise Woodson Ra, APRN EGG PASTEURIZER [address] [place] [address] Assigned PCP 07/17/20 Usha Simon APRN EGG PASTEURIZER 909 [facility] [address] Nurse Practitioner Neurological Surgery 01/24/24 Dangelo Salinas MD 1650 [facility] [address] [place], [place] [id number] Neurology 01/27/24 documented as of this encounter
[2024-02-02 22:59] LABS: Appearance Urine Clear (Clear); Bilirubin Urine Negative (Negative); Blood Urine Trace-lysed (Negative); Color Urine Yellow (Yellow); Glucose Urine Negative (Negative); Ketones Urine Negative (Negative); Leukocyte Esterase Urine Negative (Negative); Nitrite Urine Negative (Negative); Protein Urine Negative (Negative); Urobilinogen Urine 0.2 (0.2-1.0)
[2024-02-02 23:05] LABS: RBC Urine 0-2 (0-2); Squamous Epithelial Cell Urine Few (None-Few); WBC Urine 0-2 (0-5)
[2024-02-03] VITALS: PULSE 92; O2SAT 98
[2024-02-03 00:01] VITALS: BP 158/110
[2024-02-03 00:32] VITALS: BP 158/93
== END 2024-02-03 00:47 | disposition home or self-care (01) ==
PROVIDERS: Emergency Provider Family Medicine; PCP Family Medicine
DX: R20.2 Paresthesia of skin (principal); R26.81 Unsteadiness on feet
CPT/HCPCS: 36415; 70450; 80048; 80177; 81001; 83735; 84443; 85025; 86140; 93005; 96361; 96374; 99284; 99285; J2060; J7030

== ENCOUNTER 2024-02-22 14:32 | Emergency (ER) | payer OTHER, SELFPAY ==
[2024-02-22 14:35] VITALS: BP 165/103; PULSE 84; RESP 18; TEMP 36.6; O2SAT 99; BMI 31.9
--- NOTE | 2024-02-22 15:11 | CRLHL7_ITS ---
For Patients: As a result of the Cures Act, medical imaging exams and procedure reports are released immediately into your electronic medical record. You may view this report before your referring provider. If you have questions, please contact your health care provider. INDICATION: Leg pain and swelling, recent stroke COMPARISON: None. TECHNIQUE: Fu-scale, color, and duplex Doppler imaging of the left lower extremity veins. Compression and augmentation attempted where anatomically and clinically feasible. FINDINGS: Laterality: Left Examined veins: Common femoral, femoral, popliteal, peroneal, posterior tibial Greater saphenous The examined veins are patent with normal grayscale appearance and normal compressibility where anatomically feasible. Normal color Doppler flow. Normal venous waveforms on duplex Doppler ultrasound with normal augmentation. There is a 4.1 x 1.6 x 3.6 centimeter cyst in the popliteal fossa on the left consistent with a Abad`s cyst. No adjacent edema or fluid to suggest rupture. No significant internal debris or septations. The right common femoral vein is sampled for comparison and is normal. IMPRESSION: 1. No left lower extremity deep vein thrombosis. 2. Left popliteal fossa Abad cyst. Dictated by Albina Smith MD @ 02/22/2024 4:33:50 PM (Electronically Signed)
--- NOTE | 2024-02-22 15:16 | ED_ITS ---
HPI - General Adult General Chief complaint: Extremity Pain/Injury, Lower Stated complaint: Blood clot L leg Time Seen by Provider: 02/22/24 14:33 History of Present Illness HPI narrative: [age] year white female presents with left leg swelling and discomfort. She had a stroke postprocedural for a cerebral angiogram recently at [facility]. She is recovering nicely in doing physical therapy for that. Yesterday and today she noticed increased tightness especially behind her knee and in her calf. She feels her left leg is a little more swollen. She noticed it is a little ?stiffer . She is concerned about a blood clot. She had recent treatment for bronchospasm with steroid. This is by her report. The patient denies shortness of breath, chest pain, headache or neurologic complaints. She has been working at room at [employer] last couple of days but doing mostly sitting. She noticed some bruising on her left medial ankle but no trauma. Related Data Home Medications ?Medication ?Instructions ?Recorded ?Confirmed fluticasone furoate 200 1 inh inhalation DAILY 07/03/22 02/22/24 mcg-vilanterol 25 mcg/dose inhalation powder (Breo Ellipta) albuterol sulfate 90 mcg/actuation 2 puff inhalation Q6H PRN 08/01/22 01/31/24 aerosol inhaler magnesium 250 mg tablet 250 mg PO HS 08/02/22 01/31/24 trazodone 100 mg tablet 100 mg PO HS sleep 08/02/22 02/22/24 cetirizine 10 mg tablet (Zyrtec) 10 mg PO DAILY 10/08/23 01/31/24 levetiracetam 750 mg tablet 750 mg PO BID 01/31/24 02/22/24 rosuvastatin 20 mg tablet 20 mg PO QPM 01/31/24 02/22/24 aspirin 325 mg tablet,delayed 325 mg PO DAILY 02/22/24 02/22/24 release Previous Rx's ?Medication ?Instructions ?Recorded ketorolac 10 mg tablet 10 mg PO Q6H PRN pain 5 days #20 07/03/22 tabs prednisone 20 mg tablet 20 mg PO BID #6 tabs 01/31/24 Allergies Allergy/AdvReac Type Severity Reaction Status Date / Time bupropion Allergy Intermediate Diarrhea Verified 02/22/24 14:40 codeine Allergy Intermediate epigastric Verified 02/22/24 14:40 pain erythromycin base Allergy Intermediate stomach Verified 02/22/24 14:40 upset, diarrhea Review of Systems Status of ROS: Reports: 6 or more systems reviewed and unremarkable except as noted in History and below [facility] Medical History Headache ?R51.9 - Headache, unspecified (ICD-10) Asthma ?J45.909 - Unspecified asthma, uncomplicated (ICD-10) History of blood transfusion (1994) ?Z92.89 - Personal history of other medical treatment (ICD-10) History of vitamin D deficiency ?Z86.39 - Personal history of other endocrine, nutritional and metabolic disease (ICD-10) Anxiety and depression ?F41.9 - Anxiety disorder, unspecified (ICD-10) ?F32.A - Depression, unspecified (ICD-10) Fibromyalgia ?M79.7 - Fibromyalgia (ICD-10) Mild persistent asthma ?J45.30 - Mild persistent asthma, uncomplicated (ICD-10) H/O bronchopulmonary dysplasia ?Z87.09 - Personal history of other diseases of the respiratory system (ICD- 10) Stage 1 chronic kidney disease (11/16/20) ?N18.1 - Chronic kidney disease, stage 1 (ICD-10) Simple renal cyst (10/2020) ?N28.1 - Cyst of kidney, acquired (ICD-10) 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, unspecified (ICD-10) Asthma ?J45.909 - Unspecified asthma, uncomplicated (ICD-10) Surgical History History of laparoscopy ?Z98.890 - Other specified postprocedural states (ICD-10) S/P dilation and curettage (1994) ?Z98.890 - Other specified postprocedural states (ICD-10) H/O tubal ligation ?Z98.51 - Tubal ligation status (ICD-10) Status post excision of lipoma (2011) ?Z98.890 - Other specified postprocedural states (ICD-10) ?Z86.018 - Personal history of other benign neoplasm (ICD-10) History of medial meniscus repair of left knee (08/04/13) ?Z98.890 - Other specified postprocedural states (ICD-10) History of laparoscopic cholecystectomy (09/29/20) ?Z90.49 - Acquired absence of other specified parts of digestive tract (ICD- 10) History of hysterectomy for benign disease (2005) ?Z90.710 - Acquired absence of both cervix and uterus (ICD-10) History of catheter-based closure of atrial septal defect (06/2006) ?Z87.74 - Personal history of (corrected) congenital malformations of heart and circulatory system (ICD-10) Family History Maternal Grandmother Stroke Paternal Grandfather Diabetes Daughter Depression Social History Narrative: She recently moved to [place]. 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 She has a college education She exercises 5 days a week with walking in treadmill 2M She does not smoke She does not drink alcohol or use recreational drugs What is your current living situation?: I presently have a place to live Problems where you live: no known problems Problems where you live details: na In the past 12 months, utilities in danger of being shut off: no In past 12 months, lack of transportation kept you from medical appts, meetings, work, or getting things needed for daily living: no In the past 12 mos, have been you worried that your food would run out before you had money to buy more?: never true In the past 12 mos, the food you bought just didn't last and you didn't have money to buy more?: never true Highest level of school completed/degree received: Associate degree: occup ational, technical, vocational program Smoking Status: Never smoker Do you use any of these nicotine containing products: None Second hand tobacco smoke exposure: No How often do you have a drink containing alcohol: never How often do you have six or more drinks on one occasion: Never AUDIT-C Alcohol total score: 0 Non-prescribed substance use: denies use Caffeine: Yes How often does anyone, including family, friends and others, physically hurt you : never How often does anyone, including family, friends and others, insult or talk down to you: never How often does anyone, including family, friends and others, threaten you with harm: never How often does anyone, including family, friends and others, scream or curse at you: never Little interest or pleasure in doing things: not at all Feeling down, depressed, or hopeless: not at all Are you using contraception or practicing any form of control: Yes (hysterectomy) service: No Exam Narrative: Exam Narrative: Objective: Patient's vital signs show slightly elevated systolic pressure and diastolic pressure 165/103, she is afebrile, O2 sat excellent 9 and% Patient denies any chest pain or shortness of breath HEENT unremarkable pulse regular Left lower extremity shows mild discomfort with straightening her leg, no palpable venous cords in her leg, no marked edema in her leg. She does have a small bruise in the medial ankle on the left Const: Vital Signs, click to edit/add: Vital Signs - 24 hr 02/22/24 14:35 Temperature 98 F Pulse Rate [Right Pulse Oximeter] 84 Respiratory Rate 18 Blood Pressure [Ri ght Upper Arm] 165/103 H Pulse Oximetry 99 Oxygen Delivery Me thod Room Air Course Vital Signs Vital signs: Initial Vital Signs Temperature 98 F 02/22/24 14:35 Temperature Source Temporal Artery Scan 02/22/24 14:35 Pulse Rate 84 02/22/24 14:35 Pulse Rhythm Regular 02/22/24 14:35 Respiratory Rate 18 02/22/24 14:35 Blood Pressure 165/103 H 02/22/24 14:35 Blood Pressure Mean 123 H 02/22/24 14:35 Blood Pressure Position Sitting 02/22/24 14:35 Pulse Oximetry 99 02/22/24 14:35 Oxygen Delivery Method Room Air 02/22/24 14:35 Vital Signs Temperature 98 F 02/22/24 14:35 Pulse Rate 84 02/22/24 14:35 Respiratory Rate 18 02/22/24 14:35 Blood Pressure 165/103 H 02/22/24 14:35 Pulse Oximetry 99 02/22/24 14:35 Oxygen Delivery Method Room Air 02/22/24 14:35 Temperature 98 F 02/22/24 14:35 Pulse Rate 84 02/22/24 14:35 Respiratory Rate 18 02/22/24 14:35 Blood Pressure 165/103 H 02/22/24 14:35 Pulse Oximetry 99 02/22/24 14:35 Oxygen Delivery Method Room Air 02/22/24 14:35 Medical Decision Making MDM Narrative Medical decision making narrative: 48-year-old female with recent vascular issues with the procedure related stroke, she has got a history of fibromuscular dysplasia. I think at this point given her symptoms in her leg and the probably more sedentary nature of what is been going on recently I would suggest we get an ultrasound of her leg to make sure she did have a blood clot. If the ultrasound scan is negative I think she can do Tylenol, continue her aspirin, ice to the back of the knee in the calf as needed. Would recommend stretching and walking on a regular basis at the scan is negative. She and her family comfortable plan. Addendum 3:56 p.m.: Patient has a negative ultrasound for DVT in the left lower extremity she does have a Abad cyst. Recommend symptomatic management Tylenol aspirin, icing and a recheck as above Discharge Plan Discharge Clinical Impression: Left leg pain Patient Disposition: Home w/ Parent or Adult Condition: Stable Additional Instructions: Ice to the back of the knee 5-10 minutes 3 to 5 times a day, continue her aspirin they are taking 4 year post stroke situation, you could also take Tylenol, recommend stretching and activity and walking. Recheck with regular doctor, not improving changes concerns worsening evaluate in the ER. Activity Level: No Restrictions Discharge Diet: Regular Prescriptions: No Action cetirizine [Zyrtec] 10 mg tablet 10 mg PO DAILY albuterol sulfate 90 mcg/actuation HFA aerosol inhaler 2 puff inhalation Q6H PRN magnesium 250 mg tablet 250 mg PO HS levetiracetam 750 mg tablet 750 mg PO BID rosuvastatin 20 mg tablet 20 mg PO QPM prednisone 20 mg tablet 20 mg PO BID Qty: 6 0RF aspirin 325 mg tablet,delayed release (DR/EC) 325 mg PO DAILY fluticasone furoate-vilanterol [Breo Ellipta] 200-25 mcg/dose blister with device 1 inh INHALATION DAILY ketorolac 10 mg tablet 10 mg PO Q6H PRN (Reason: pain) 5 Days Qty: 20 0RF trazodone 100 mg tablet 100 mg PO HS Follow Up/Referrals: Keira Irvin MD [Primary Care Provider] - Stand Alone Forms: [facility] Instructions
--- OUTSIDE RECORDS SUMMARY | 2024-02-22 15:18 | XMS_ITS | Clinical Summary ---
Author Organization [facility] Address [address] [place] [address] Care Team Providers Care Field Human Resources Manager Name Role Phone Darius Shaw M.D. Primary Care Provider [phone]- [phone] Source Comments Patient records contain information from all sites at [facility]. For routine questions regarding patient records, call [phone] during business hours, M-F 8:00 AM - 5:00 PM Central Time. Record requests for emergency care only can be directed to [phone] at any time.[facility] Allergies Active Allergy Reactions Criticality Noted [...] Description 01/28/2024 Refill Department of Family Medicine, [facility], in [address] [id number] Darius Shaw M.D. Med Refill from Last [...] week 01/10/2023 How often do you attend religious or episcopal serv ices? Never 01/10/2023 Do you belong to any clubs o r organizations such as religious groups, unions, fraternal or athletic groups, or [...] Answer Date Recorded PHQ-2 Score 3 01/10/2023 [facility] - Occupational Stress Questionnaire Answer [...] 11/07/2011, 10/04/2011 Medical Devices Implanted Type Area Freight Weigher Device Identifier Shelf Expiration Date Model / Serial / Lot Mesh Or Patch Mesh or Patch Heart Description:Amplatzer Septal Occluder Asd Closure Device 34mm - Sanders [id number] Implanted:Qty: 1 on 06/20/2006 Septal Defect Occluder Device Other/Legacy - See Implant Description Description:Device Manufactu rer - [employer]. Device Status Text - [id number]. Procedures Procedure Name Priority Date/Time Associated Diagnosis Comments EXTI BASIC METABOLIC PANEL, FASTING, S Routine 01/21/2024 5:51 AM CDT BI BREAST SCREENING BILATERAL WITH TOMOSYNTHESIS RAD - Routine (most inpatients and all outpatients) 07/30/2023 2:38 PM NEW BUSINESS CLERK Screening Mammogram Breast Cancer COLOGUARD Routine 10/28/2022 5:54 PM NEW BUSINESS CLERK Screening Cancer Colon EXTI LIPID PANEL REFLEX TO DIRECT LDL Routine 07/27/2021 8:57 AM NEW BUSINESS CLERK from Last 3 Months or Most Recently Relevant to Health Maintenance Results * BI Breast Screening Bilateral with Tomosynthesis (07/30/2023 2:38 PM NEW BUSINESS CLERK) Anatomical Region Laterality Modality Breast, Breast Imaging RST L OS, Breast Imaging ARZ LOS, Breast Imaging FLA LOS Bilateral Mammography 08/01/2023 12:2 8 PM NEW BUSINESS CLERK Impressions 08/01/2023 12:33 PM NEW BUSINESS CLERK Negative. RECOMMENDATION: ??Annual Screening Mammogram ASSESSMENT: ??BI-RADS: 1: Negative. Narrative 08/01/2023 12:33 PM NEW BUSINESS CLERK EXAM: ??BI BREAST SCREENING BILATERAL WITH TOMOSYNTHESIS [...] ASSESSMENT: BI-RADS: 1: Negative. Darius Shaw M.D. [facility] BI PROCEDURES * Cologuard-Sent Out Lab (10/28/2022 5:54 PM NEW BUSINESS CLERK) Result Negative Negative 11/03/2022 2:48 AM NEW BUSINESS CLERK EXLI Comment: NEGATIVE TEST RESULT. A negative [...] Gates et al, N Engl J Med 2014;370(14):4111-3094) The normal value (reference range) for this assay is negative. COLOGUARD RE-SCREENING RECOMMENDATION: Periodic colorectal cancer screening is an important part of preventive healthcare for asymptomatic individuals at average risk for colorectal cancer. ??Following a negative Cologuard result, the [place] Cancer Society and U.S. Multi-Society Task Force screening guidelines recommend a Cologuard re-screening interval of 3 years. References: [place] Cancer Society Guideline for Colorectal Cancer Screening: https://www.cancer.org/cancer/ycnwi-poxryi-jaxsqz/detection- diagnosis-staging/acs-recommendations.html.; Ming MARTINEZ, Barbra TREJO, Erna FRANK, Colorectal Cancer Screening: Recommendations for Physicians and Patients from the U.S. Multi-Society Task Force on Colorectal Cancer Screening , Am J Gastroenterology 2017; 112:8831-0805. TEST DESCRIPTION: Composite algorithmic analysis of stool [...] Gates et al, N Engl J Med 2014;370(14):3939-9070.) Cologuard may produce a false negative or false positive result (no colorectal cancer or precancerous polyp present at colonoscopy follow up). A negative Cologuard test result does not guarantee the absence of CRC or advanced adenoma (pre-cancer). The current Cologuard screening interval is every 3 years. ([place] Cancer Society and U.S. Multi-Society Task Force). Cologuard performance data in a 10,000 patient pivotal study using colonoscopy as the reference method can be accessed at the following location: www.cooala [employer]/results. Additional description of the Cologuard test process, warnings and precautions can be found at [email or web address]. Stool (Stool) 10/28/2022 5:5 4 PM NEW BUSINESS CLERK 10/30/2022 1:57 PM NEW BUSINESS CLERK Darius Shaw M.D. LAB BODY FLUIDS AND STOOLS ORDERABLES [employer] [address] [place] [address] EXLI [employer] [address] [facility], [address] [place] [address] from Last 3 Months or Most Recently Relevant to Health Maintenance Advance Directives For more information, please contact: [phone] * Full Code (Latest Code Status on File) Date Activated Date Inactivated Comments 09/30/2022 4:41 PM 10/02/2022 6:08 PM Question Answer Comments Full Code: Discussed Care Teams Field Human Resources Manager Relationship Specialty Start Date End Date Darius Shaw M.D. WES: [phone] [address] [place] [phone] PCP - General Family Medicine 09/27/22
--- OUTSIDE RECORDS SUMMARY | 2024-02-22 15:19 | XMS_ITS | Referral Summary ---
Author Organization [facility] Address [address] [place] [address] Care Team Providers Care Keno Terminal Operator Name Role Phone Darius Shaw M.D. Primary Care Provider [phone]- [phone] Source Comments Patient records contain information from all sites at [facility]. For routine questions regarding patient records, call [phone] during business hours, M-F 8:00 AM - 5:00 PM Central Time. Record requests for emergency care only can be directed to [phone] at any time.[facility] Encounters Date Type Department Care Team Description 01/28/2024 Refill Department of Family Medicine, [facility], in [address] [phone] Darius Shaw M.D. Med Refill from Last [...] week 01/10/2023 How often do you attend taoist or congregational serv ices? Never 01/10/2023 Do you belong to any clubs o r organizations such as taoist groups, unions, fraternal or athletic groups, or [...] 01/10/2023 [facility] - Occupational [...] on file Medical Devices Implanted Type Area Licensed Psychiatric Technician Device Identifier Shelf Expiration Date Model / Serial / Lot Mesh Or Patch Mesh or Patch Heart Description:Amplatzer Septal Occluder Asd Closure Device 34mm - Sanders [id number] Implanted:Qty: 1 on 06/20/2006 Septal Defect Occluder Device Other/Legacy - See Implant Description Description:Device Manufactu rer - [facility] [employer]. Device Status Text - [id number]. Procedures Procedure Name Priority Date/Time Associated Diagnosis Comments EXTI BASIC METABOLIC PANEL, FASTING, S Routine 01/21/2024 5:51 AM CDT BI BREAST SCREENING BILATERAL WITH TOMOSYNTHESIS RAD - Routine (most inpatients and all outpatients) 07/30/2023 2:38 PM BRANCHER Screening Mammogram Breast Cancer COLOGUARD Routine 10/28/2022 5:54 PM BRANCHER Screening Cancer Colon EXTI LIPID PANEL REFLEX TO DIRECT LDL Routine 07/27/2021 8:57 AM BRANCHER from Last 3 Months or Most Recently Relevant to Health Maintenance Results * BI Breast Screening Bilateral with Tomosynthesis (07/30/2023 2:38 PM BRANCHER) Anatomical Region Laterality Modality Breast, Breast Imaging RST L OS, Breast Imaging ARZ LOS, Breast Imaging FLA LOS Bilateral Mammography 08/01/2023 12:2 8 PM BRANCHER Impressions 08/01/2023 12:33 PM BRANCHER Negative. RECOMMENDATION: ??Annual Screening Mammogram ASSESSMENT: ??BI-RADS: 1: Negative. Narrative 08/01/2023 12:33 PM BRANCHER EXAM: ??BI BREAST SCREENING BILATERAL WITH TOMOSYNTHESIS [...] * Cologuard-Sent Out Lab (10/28/2022 5:54 PM BRANCHER) Result Negative Negative 11/03/2022 2:48 AM BRANCHER EXLI Comment: NEGATIVE TEST RESULT. A negative [...] (Yenny Adkins al, N Engl J Med 2014;370(14):9443-1073) The normal value (reference range) for this assay is negative. COLOGUARD RE-SCREENING RECOMMENDATION: Periodic colorectal cancer screening is an important part of preventive healthcare for asymptomatic individuals at average risk for colorectal cancer. ??Following a negative Cologuard result, the [place] Cancer Society and U.S. Multi-Society Task Force screening guidelines recommend a Cologuard re-screening interval of 3 years. References: [place] Cancer Society Guideline for Colorectal Cancer Screening: https://www.cancer.org/cancer/djlhs-xpygbz-nyyebl/detection- diagnosis-staging/acs-recommendations.html.; Ming DK, Barbra CR, Erna SimsK, Colorectal Cancer Screening: Recommendations for Physicians and Patients from the U.S. Multi-Society Task Force on Colorectal Cancer Screening , Am J Gastroenterology 2017; 112:3949-1582. TEST DESCRIPTION: Composite algorithmic analysis of stool [...] (Yenny Adkins al, N Engl J Med 2014;370(14):0359-8715.) Cologuard may produce a false negative or false positive result (no colorectal cancer or precancerous polyp present at colonoscopy follow up). A negative Cologuard test result does not guarantee the absence of CRC or advanced adenoma (pre-cancer). The current Cologuard screening interval is every 3 years. ([place] Cancer Society and U.S. Multi-Society Task Force). Cologuard performance data in a 10,000 patient pivotal study using colonoscopy as the reference method can be accessed at the following location: www.[employer]/results. Additional description of the Cologuard test process, warnings and precautions can be found at www.[email or web address].com. Stool (Stool) 10/28/2022 5:5 4 PM BRANCHER 10/30/2022 1:57 PM BRANCHER Darius Shaw M.D. LAB BODY FLUIDS AND STOOLS ORDERABLES [facility] [address] [place] [address] EXLI [employer] [address] [facility], [address] [place] [address] from Last 3 Months or Most Recently Relevant to Health Maintenance Advance Directives For more information, please contact: [phone] * Full Code (Latest Code Status on File) Date Activated Date Inactivated Comments 09/30/2022 4:41 PM 10/02/2022 6:08 PM Question Answer Comments Full Code: Discussed Care Teams Keno Terminal Operator Relationship Specialty Start Date End Date Darius Shaw M.D. [id number] [phone] PCP - General Family Medicine 09/27/22
--- OUTSIDE RECORDS SUMMARY | 2024-02-22 15:19 | XMS_ITS | Clinical Summary ---
Author Organization [place] Address [address] [place] [address] Care Team Providers Care Bioprocess Engineer Name Role Phone Winston Villatoro OD Unavailable [phone] Denise Woodson Ra, APRN ROLL LINE OPERATOR Unavailable [phone] Denise Woodson Ra, APRN ROLL LINE OPERATOR Primary Care Provid er Usha Simon APRN ROLL LINE OPERATOR Unavailable [phone] Dangelo Salinas MD Unavailable Usha Simon APRN ROLL LINE OPERATOR Unavailable [phone] Anastasia Stearns RN Unavailable [phone] Germaine Lopez CHW Unavailable [phone] Allergies Active Allergy Reactions Criticality Noted Date [...] free for 12 hrs daily. 4 Active senna-docusate (SENOKOT-S/JIMMY LACE) 8.6-50 MG tabletIndications :Other constipation Take 2 tablets by mouth 2 times daily as needed for constipation 4 Active Additional Information Patient not taking.Reported on 02/06/2024 methyl salicylate-mentho l (ICY HOT) ointmentIndicatio ns:Fibromyalgia,P ain of right upper extremity Apply topically every 6 hours as needed (pain) 4 Active acetaminophen (TYLENOL) 500 MG tabletIndications :Fibromyalgia,Tony n of right upper extremity Take 1-2 tablets (500-1,000 mg) by mouth 3 times daily as needed for mild pain or headaches 4 Active magnesium oxide 200 MG TABS Ok to take magnesium supplement of your preference 4 Active meclizine (ANTIVERT) 25 MG tablet Take 1 tablet (25 mg) by mouth 3 times daily as needed for dizziness 20 tablet 4 Active aspirin (ASA) 325 MG EC tabletIndications :Cerebrovascular accident (CVA), unspecified mechanism (H) Take 1 tablet (325 mg) by mouth daily 30 tablet 4 Active levETIRAcetam (KEPPRA) 750 MG tabletIndications :History of seizure Take 1 tablet (750 mg) by mouth 2 times daily 60 tablet 4 Active rosuvastatin (CRESTOR) 20 MG tabletIndications :Cerebrovascular accident (CVA), unspecified mechanism (H) Take 1 tablet (20 mg) by mouth at bedtime 30 tablet 4 Active aspirin (ASA) 325 MG EC tablet Take [...] nightly as needed for anxiety 4 Discontinued calcium carbonate (TUMS) 500 MG chewable tabletIndications :Nausea Take 1 tablet (500 mg) by mouth 4 times daily as needed for heartburn 4 024 Discontinued oxyCODONE (ROXICODONE) 5 MG tabletIndications [...] PM 4 024 Discontinued(St op at Discharge) aspirin (ASA) 325 MG EC tabletIndications :Cerebrovascular accident (CVA), unspecified mechanism (H) Take 1 tablet (325 mg) by mouth daily 30 tablet 4 024 Discontinued(Re order (No AVS)) hydrOXYzine HCl (ATARAX) 50 MG tabletIndications :Generalized anxiety disorder Take 0.5-1 tablets (25-50 mg) by mouth every 6 hours as needed for anxiety or other (sleep) 60 tablet 4 024 Discontinued levETIRAcetam (KEPPRA) 750 MG tabletIndications :History of seizure Take 1 tablet (750 mg) by mouth 2 times daily 60 tablet 4 024 Discontinued(Re order (No AVS)) rosuvastatin (CRESTOR) 20 MG tabletIndications :Cerebrovascular accident (CVA), unspecified mechanism (H) Take 1 tablet (20 mg) by mouth at bedtime 30 tablet 4 024 Discontinued(Re order (No AVS)) Active Problems Problem Noted Date Diagnosed Date [...] Encounters Date Type Department Care Team Description 02/19/2024 3:00 PM CDT Therapy Visit [address] [address] Danya You, Isabel Payan, OTR Cerebrovascular accident (CVA), unspecified mechanism (H) (Primary Dx) 02/19/2024 Travel 02/17/2024 2:45 PM CDT Therapy Visit [address] [phone] Danya You, Aliya Toledo, CONTROLS DESIGN ENGINEER Cerebrovascular accident (CVA), unspecified mechanism (H) (Primary Dx); Cognitive communication deficit 02/17/2024 Travel 02/15/2024 Travel 02/14/2024 2:45 PM CDT Therapy Visit [address] [phone] Danya You, Maria Eugenia Palencia, PT Cerebrovascular accident (CVA), unspecified mechanism (H) (Primary Dx) 02/14/2024 2:00 PM CDT Therapy Visit [address] [phone] Danya You, Charis Thomas, CONTROLS DESIGN ENGINEER Cerebrovascular accident (CVA), unspecified mechanism (H) (Primary Dx) 02/14/2024 12:45 PM CDT Therapy Visit [address] [phone] Danya You PA Peterson, Megan A, OTR Cerebrovascular accident (CVA), unspecified mechanism (H) (Primary Dx) 02/14/2024 Telephone [place] [phone] Denise Woodson Ra, APRN CNP 02/14/[address] [facility] [address] [place] [address] Denise Woodson Ra, APRN CNP Medication Request; Forms 02/14/2024 Travel 02/13/2024 12:11 PM CDT - 02/13/2024 3:28 PM CDT Emergency [facility] Emergency Dept [address] [place] [place] [phone] Dangelo Sylvester DO Dizziness Discharge Disposition: Home or Self Care 02/13/2024 Travel 02/12/2024 3:40 PM CDT Virtual Visit [facility] [address] [phone] Robin Zepeda MD Dural arteriovenous fistula (Primary Dx) 02/12/2024 Telephone [facility] [address] [phone] Robin Zepeda MD 02/07/2024 2:00 PM CDT Therapy Visit [facility] [address] [phone] Danya You PA Raasch, Sharon, CONTROLS DESIGN ENGINEER Cerebrovascular accident (CVA), unspecified mechanism (H) (Primary Dx) 02/06/2024 8:30 AM CDT Office Visit [facility] [address] [place] [phone] Denise Woodson Ra, APRN CNP Fibromuscular dysplasia (H24) (Primary Dx); Cerebrovascular accident (CVA), unspecified mechanism (H); TSH elevation 02/06/2024 Telephone [facility] [address] [phone] Meche De La Cruz, RN Appointment (Follow-up 02/04/24 PHQ9) 02/06/[address] [facility] [address] [place] [address] Denise Woodson Ra, APRN CNP H/O prolonged Q-T interval on ECG (Primary Dx) 02/06/2024 Travel 02/05/2024 Telephone [facility] [address] [phone] Robin Zepeda MD 02/05/2024 Travel 02/04/2024 1:45 PM CDT - 02/04/2024 7:21 PM CDT Emergency [facility] [address] [place] [phone] Jovita Vail MD Golz, Dustin Nickolas, Left sided numbness; Vision abnormalities; Coordination abnormal Discharge Disposition: Home or Self Care 02/04/2024 11:00 AM CDT Virtual Visit [facility] [address] [phone] Raul Hoyos MD Depression, unspecified depression type (Primary Dx); Seizure-like activity (H); History of seizure; Cerebrovascular accident (CVA), unspecified mechanism (H) 02/04/2024 Travel 02/04/2024 PRE VISIT [facility] [address] [address] Raul Hoyos MD *-*INCOMING RECORDS*-* 02/03/2024 8:45 AM CDT Therapy Visit [facility] [address] [address] Denise Woodson Ra, Addis Figueroa CNP, PT Cerebrovascular accident (CVA), unspecified mechanism (H) (Primary Dx) 02/03/[address] [facility] [address] [place] [address] Denise Woodson Ra, APRN ROLL LINE OPERATOR 02/03/2024 Travel 02/01/2024 Travel 01/31/2024 9:30 AM CDT Office Visit [facility] [address] [phone] Jeevan Sheth MD George, Seena Susan, APRN CNP Dural arteriovenous fistula 01/31/2024 PRE VISIT [facility] [address] [address] Usha Simon, BARRERA ROLL LINE OPERATOR *-*INCOMING RECORDS*-* 01/30/2024 11:00 AM CDT Therapy Visit [address] [phone] Danya You PA Van Dyk, Sara, OTR Activity of daily living alteration (Primary Dx); Cerebrovascular accident (CVA), unspecified mechanism (H); Alteration in instrumental activities of daily living (IADL) 01/30/2024 Travel 01/30/2024 MyC Medical Advice [facility] [address] [address] Stacey Kelley, GEMA 01/30/2024 Telephone [facility] [address] [phone] Stacey Kelley, RN 01/29/2024 9:30 AM CDT Therapy Visit [facility] [address] [place] [address] Danya You PA Morgan, Lindsay M, CONTROLS DESIGN ENGINEER Cerebrovascular accident (CVA), unspecified mechanism (H) 01/29/2024 MyC Medical Advice [address] [phone] Danya Restrepo, CONTROLS DESIGN ENGINEER 01/28/2024 1:15 PM CDT Therapy Visit [facility] [address] [place] [address] Danya You PA Hoyt, Kelly, PT Cerebrovascular accident (CVA), unspecified mechanism (H) 01/28/2024 Travel 01/27/2024 Travel 01/27/2024 Telephone [facility] [address] [place] [address] None 01/27/2024 MyC Medical Advice [facility] [address] [place] [address] [address] [place] [address] Mychart, [place] 01/25/2024 Travel 01/23/2024 Telephone [facility] [address] [place] [address] None Appointment (Referral-Stroke hospital follow up) 01/23/2024 Orders Only [facility] [address] [address] [place] [address] Delisa Manuel MD Dural arteriovenous fistula (Primary Dx) 01/22/2024 2:38 PM CDT - 01/26/2024 12:31 PM CDT Hospital Encounter [facility] [address] [address] Parminder Del Angel MD Cerebrovascular accident (CVA), unspecified mechanism (H) (Primary Dx); Fibromyalgia; Pain of right upper extremity; Generalized anxiety disorder; History of seizure; Mild recurrent major depression (H24) Discharge Disposition: Home or Self Care 01/21/2024 8:30 AM CDT Ancillary Procedure [facility] EEG [address] [place] [phone] Kev Ansari MD Choudhary, Kriti, MD 01/19/2024 11:16 PM CDT - 01/22/2024 2:19 PM CDT Hospital Encounter [facility] [address] [place] [address] Rodolfo, Luis, DO OmeroAnahy pritchett MD Traxler, Matthew, MD Fibromyalgia (Primary Dx); Pain of right upper extremity; Nausea; Other constipation; Generalized anxiety disorder; History of stroke; Seizure-like activity (H); History of seizure; Cerebrovascular accident (CVA), unspecified mechanism (H); Dural arteriovenous fistula Discharge Disposition: Acute Rehab Facility 01/17/2024 1:09 PM CDT - 01/19/2024 10:07 PM CDT Hospital Encounter [address] [address] Parminder Del Angel MD Al [...] Not Answered Alcohol Use Standard Drinks/Week Comments Not Currently 0 (1 standard drink = 0.6 oz pur e alcohol) minimal PHQ-2 Answer Date Recorded PHQ-2 Score 4 02/12/2024 Adolescent Education Answer Date Record ed Getting School Help Needed Not on file 07/01 Interpersonal Safety Answer Date Record ed Do you feel physically and e motionally safe where you currently live? Yes 02/06/2024 Within the past 12 months, h ave you been hit, slapped, kicked or otherwise physically hurt by someone? No 02/06/2024 Within the past 12 months, h ave you been humiliated or emotionally abused in other ways by your partner or ex-partner? No 02/06/2024 Sex and Gender Information Value Date Recorded Sex Assigned at Not on file Gender Identity Not on file Sexual Orientation Not on file Last Filed Vital Signs Vital Sign Reading Time Taken Comments Blood Pressure 144/95 02/13/2024 3:22 PM CDT Pulse 89 02/13/2024 3:22 PM CDT Temperature 36.5 ??C (97.7 ??F) 02/13/2024 12:01 PM C DT Respiratory Rate 18 02/13/2024 12:01 PM CDT Oxygen Saturation 97% 02/13/2024 3:22 PM CDT Inhaled Oxygen Concentration - - Weight 98.2 kg (216 lb 7.9 oz) 02/13/2024 12:01 PM CDT Height 175.3 cm (5' 9) 02/13/2024 12:01 PM CDT Body Mass Index 31.97 02/13/2024 12:01 PM CDT Plan of Treatment Upcoming Encounters Date Type Department Care Team (Late st Contact Info) Description 02/26/2024 1:40 PM CDT Appointment [facility] [address] [facility] [address] [place] [address] Denise Woodson Ra, CHILD NURSE ROLL LINE OPERATOR [address] [facility] [place] [address] 02/26/2024 2:15 PM CDT Therapy Visit [facility] [address] [address] Danya You, PA [address] [facility] [address] [place] [address] Charis Chacon, [facility] [address] [place] [address] 02/26/2024 3:00 PM CDT [facility] [address] [facility] [place] [phone] Danya You, PA [address] [place], [place] [phone] Isabel Beaulieu, OTR [facility] [address] [place] [address] 02/27/2024 4:45 PM CDT Therapy Visit [facility] [address] [place] [phone] Danya You, PA [address] [address] Vanessa Duggan, PT 03/05/2024 1:30 PM CDT Therapy Visit [facility] [address] [place] [phone] Danya You, PA 2450 [facility] [address] [address] Isabel Beaulieu, OTR [facility] [address] [place] [address] 03/05/2024 3:15 PM CDT [facility] [address] [place] [phone] Danya You, PA [address] [place], [place] [phone] Charis Chacon, [facility] [address] [place] [address] 03/05/2024 4:15 PM CDT Therapy Visit [facility] [address] [place] [phone] Danya You, AMAIRANI [address] [place] [address] Delicia George, PT [facility] SUR[facility]ERY [address] [address] 03/11/2024 2:15 PM CDT Therapy Visit [address] [phone] Danya You, AMAIRANI [address] [place] [address] Isabel Beaulieu, OTJah [address] [address] 03/11/2024 3:00 PM CDT Therapy Visit [address] [phone] Danya You, PA [address] [address] Charis Chacon, [facility] [address] [place] [address] 03/11/2024 4:15 PM CDT Therapy Visit [address] [phone] Danya You, PA [address] [place] [address] Delicia George, PT [address] [address] 03/17/2024 10:00 AM CDT Office Visit [facility] [address] [place] [phone] Denise Woodson Ra, CHILD NURSE ROLL LINE OPERATOR [address] [place] [address] 03/17/2024 1:30 PM CDT Therapy Visit [address] [phone] Danya You PA [address] [place] [address] Isabel Beaulieu, OTJah [address] [address] 03/17/2024 2:30 PM CDT Therapy Visit [address] [phone] Danya You PA [address] [place] [address] Charis Chacon, [facility] [address] [place] [address] 03/17/2024 4:00 PM CDT Therapy Visit [address] [phone] Danya You PA [address] [address] Vanessa Duggan, PT 03/23/2024 10:30 AM CDT Office Visit [facility] [address] [place] [phone] Denise Woodson Ra, CHILD NURSE ROLL LINE OPERATOR [address] [place] [address] 03/26/2024 1:30 PM CDT Therapy Visit [address] [phone] Danya You, PA [address] [address] Isabel Beaulieu, OTJah [address] [address] 03/26/2024 2:30 PM CDT Therapy Visit [address] [phone] [place] [address] [place] [address] Charis Chacon, [facility] [address] [place] [address] 03/26/2024 3:30 PM CDT Therapy Visit [address] [phone] Danya You, PA [address] [address] Delicia George, PT [address] [place] [address] 04/02/2024 2:15 PM CDT Therapy Visit [address] [phone] Danya You, AMAIRANI SOTO [address] [place] [address] Isabel Beaulieu, OTR [address] [address] 04/02/2024 3:15 PM CDT Therapy Visit [address] [phone] Danya You, AMAIRANI [address] [place] [address] Charis Chacon, [facility] [address] [place] [address] 04/02/2024 4:15 PM CDT Therapy Visit [address] [phone] Danya You, PA [address] [place] [address] Delicia George, PT [address] [address] 04/09/2024 3:15 PM CDT Therapy Visit [address] [phone] Danya You, PA [address] [place] [address] Charis Chacon, [facility] [address] [place] [address] 04/09/2024 4:15 PM CDT Therapy Visit [address] [phone] Danya You, PA [address] [place] [address] Delicia George, PT [address] [address] 04/15/2024 9:30 AM CDT Therapy Visit [address] [phone] Danya You, PA [address] [address] Danya Restrepo SLP 04/23/2024 2:30 PM CDT Therapy Visit [address] [phone] Danya You PA [address] [place] [address] Charis Chacon, [facility] [address] [place] [address] 05/05/2024 2:30 PM CDT Office Visit [facility] [address] [place] [address] Rohit Barcenas MD [address] [facility] [address] [place] [address] 06/23/2024 11:00 AM CDT Virtual Visit [facility] [address] [place] [phone] Kristin Vázquez, [facility] [address] [place] [phone] 06/30/2024 2:00 PM CDT Virtual Visit [facility] [address] [place] [phone] Kristin Vázquez, [facility] [address] [place] [phone] Health Maintenance Due Date Last Done Comments ADVANCE CARE PLANNING 1976 CT COLONOGRAPHY 1976 FIT 1976 FLEX SIG 1976 COLONOSCOPY 1986 HIV SCREENING 1991 HEPATITIS C SCREENING 1994 Pneumococcal Vaccine: Pediatrics (0 to 5 Years) and At-Risk Patients (6 to 64 Years) (2 of 2 - PCV) 03/16/2005 03/16/2004 ASTHMA ACTION PLAN 01/04/2022 01/04/2021, 0 01/04/2021, 06/15/2019 LIPID 07/27/2022 07/27/2021, 07/17, 03/16/2008 COVID-19 Vaccine ( season) 2023 07/07/2021, 11/20/2020 YEARLY PREVENTIVE VISIT 01/11/2024 01/11/20 23, 07/27/2021, 07/27/2020, Additional history exists INFLUENZA VACCINE (Season Ended) 2024 08/02/2022, 06/23/2021, 07/27/2020, Additional history exists ASTHMA CONTROL TEST 08/08/2024 02/06/2024, 01/22/2022, 06/23/2021, Additional history exists PHQ-9 08/14/2024 02/12/2024, 01/15, 02/04/2024, Additional history exists ANNUAL REVIEW OF HM ORDERS 02/05/2025 02/06/2024, MAMMO SCREENING 07/30/2025 07/30/2023, 07/17, 04/25/2022, Additional history exists COLORECTAL CANCER SCREENING 10/28/2025 sDNA (Cologuard) 10/28/2025 10/28/2022 GLUCOSE 02/12/2027 02/13/2024, 01/16, 02/04/2024, Additional history exists DTAP/TDAP/TD IMMUNIZATION (6 - [...] on patient's age to complete this topic Goals Goal Patient Goal Type Associated Problems Recent Progress Patient-Stated? Author I would like additional resources and support to manage my health and prevent future avoidable ED visits/hospital admissions Care Plan Increased risk of re-admission No Anastasia Stearns, RN Note: Barriers: diagnosis of multiple, chronic, complex medical conditions, provider availability - wait time to complete appointments, etc. Strengths: motivated, engaged in care coordination Patient expressed understanding of goal: yes Action steps to achieve this goal: 1. I will follow up with my providers as scheduled/recommended - Call mental health # to inquire about sooner appointment (care connect?) - needs to schedule neurology appointment 2. I will take my medications as prescribed. 3. I will discuss, review, schedule and complete recommended overdue health maintenance with my Primary Care Provider. 4. I will contact my care team with questions, concerns, support needs. I will use the clinic as a resource and I understand I can contact my clinic with 24/7 after hours services available. Information Technology Director will remain available as needed. Procedures Procedure Name Priority Date/Time Associated Diagnosis Comments MR BRAIN W/O CONTRAST STAT 02/13/2024 2:50 PM CDT EKG 12-LEAD, TRACING ONLY STAT 02/13/2024 12:51 PM CDT CTA HEAD NECK W CONTRAST STAT 02/13/2024 12:[address] HEAD W/O CONTRAST STAT 02/13/2024 12:28 PM CDT GLUCOSE BY METER STAT 02/13/2024 12:1 8 PM CDT CBC WITH PLATELETS & DIFFERENTIAL STAT 02/13/2024 12:16 PM CDT CBC WITH PLATELETS AND DIFFERENTIAL STAT 02/13/2024 12:16 PM CDT HCG QUALITATIVE STAT 02/13/2024 12:16 PM CDT TROPONIN T, HIGH SENSITIVITY STAT 02/13/2024 12:16 PM CDT PARTIAL THROMBOPLASTIN TIME STAT 02/13/2024 12:16 PM CDT INR STAT 02/13/2024 12:16 PM CDT BASIC METABOLIC PANEL STAT 02/13/2024 12:16 PM CDT MR BRAIN W/O & W CONTRAST STAT 02/04/2024 6:30 PM CDT EKG 12-LEAD, TRACING ONLY STAT 02/04/2024 2:[address] HEAD PERFUSION W CONTRAST STAT 02/04/2024 2:[address] HEAD W/O CONTRAST STAT 02/04/2024 2:42 PM CDT CTA HEAD NECK W CONTRAST STAT 02/04/2024 2:41 PM CDT ISTAT CREATININE POCT STAT 02/04/2024 1:51 PM CDT CBC WITH PLATELETS & DIFFERENTIAL STAT 02/04/2024 1:49 PM CDT CBC WITH PLATELETS AND DIFFERENTIAL STAT 02/04/2024 1:49 PM CDT HCG QUALITATIVE STAT 02/04/2024 1:49 PM CDT TROPONIN T, HIGH SENSITIVITY STAT 02/04/2024 1:49 PM CDT PARTIAL THROMBOPLASTIN TIME STAT 02/04/2024 1:49 PM CDT INR STAT 02/04/2024 1:49 PM CDT BASIC METABOLIC PANEL STAT 02/04/2024 1:49 PM CDT EXTRA PURPLE TOP TUBE STAT 02/04/2024 1:49 PM CDT EXTRA GREEN TOP (LITHIUM HEPARIN) TUBE STAT 02/04/2024 1:49 PM CDT EXTRA RED TOP TUBE STAT 02/04/2024 1: 49 PM CDT EXTRA BLUE TOP TUBE STAT 02/04/2024 1 :49 PM CDT EXTRA TUBE STAT 02/04/2024 1:49 PM CDT GLUCOSE BY METER STAT 02/04/2024 1:48 PM CDT LUPUS ANTICOAGULANT PANEL Routine 01/21/2024 1:20 PM [...] 6:53 PM CDT MRA BRAIN ([place]) W/O CONTRAST STAT 01/20/2024 6:50 [...] BILATERAL W/ FLO Routine 07/30/2023 2:38 PM HEAD START TEACHER LIPID REFLEX TO DIRECT LDL PANEL Routine 07/27/2021 8:57 AM HEAD START TEACHER CARDIOVASCULAR SCREENING; LDL GOAL LESS THAN 160 ASTHMA ACTION PLAN Routine 01/04/2021 9: 09 AM CDT from Last 3 Months or Most Recently Relevant to Health Maintenance Results * MR Brain w/o Contrast (02/13/2024 2:50 PM CDT) Anatomical Region Laterality Modality Head, SUBRAD MR NEURO, UMP MR NEURO, RAD MR Magnetic Resonance Impressions 02/13/2024 3:14 PM CDT Impression: 1. No acute intracranial pathology. 2. Several scattered nonspecific T2 hyperintense foci in cerebral white matter. Differentials include sequela of prior inflammatory/infectious or vascular insults. 3. Linear T1 and FLAIR hyperintensity with associated susceptibility in the inferior left parietal lobule, likely representing a DVA. FRAN ROBBINS MD SYSTEM ID: [id number] Narrative 02/13/2024 3:14 PM CDT MR BRAIN W/O CONTRAST 02/13/2024 2:50 PM Provided History: dizziness Comparison: ??CT and CTA from earlier same-day Technique: Multiplanar multisequence brain MR without contrast. Findings: No intracranial mass lesion, mass effect, midline shift, or abnormal fluid collection. The ventricles and sulci are normal for age. No abnormality of reduced diffusion. ??Normal intravascular flow voids. Several scattered nonspecific T2 hyperintense foci in cerebral white matter. Linear T1 and FLAIR hyperintensity with associated susceptibility in the inferior left parietal lobule. Scattered paranasal sinus mucosal thickening. Mastoid air cells are clear. Procedure Note Fran Robbins MD - 02/13/2024 MR BRAIN W/O CONTRAST 02/13/2024 2:50 PM Provided History: dizziness Comparison: CT and CTA from earlier same-day Technique: Multiplanar multisequence brain MR without contrast. Findings: No intracranial mass lesion, mass effect, midline shift, or abnormal fluid collection. The ventricles and sulci are normal for age. No abnormality of reduced diffusion. Normal intravascular flow voids. Several scattered nonspecific T2 hyperintense foci in cerebral white matter. Linear T1 and FLAIR hyperintensity with associated susceptibility in the inferior left parietal lobule. Scattered paranasal sinus mucosal thickening. Mastoid air cells are clear. Impression: 1. No acute intracranial pathology. 2. Several scattered nonspecific T2 hyperintense foci in cerebral white matter. Differentials include sequela of prior inflammatory/infectious or vascular insults. 3. Linear T1 and FLAIR hyperintensity with associated susceptibility in the inferior left parietal lobule, likely representing a DVA. FRAN ROBBINS MD SYSTEM ID: [id number] Dangelo Sylvester DO IMG MRI ORDERABL ES * EKG 12-lead, tracing only (02/13/2024 12:51 PM CDT) Only the most recent of3 resultswithin the time period is included. Systolic Blood Pressure mmHg RADIOLOGY RESULTS Diastolic Blood Pressure mmHg RADIOLOGY RESULTS Ventricular Rate 81 BPM RAD IOLOGY RESULTS Atrial Rate 81 BPM RADIOLOG Y RESULTS NH Interval 166 ms RADIOLOG Y RESULTS QRS Duration 84 ms RADIOLO GY RESULTS QT 358 ms RADIOLOGY RESULTS QTc 415 ms RADIOLOGY RESULTS P [place] 52 degrees RADIOLOGY RESULTS R AXIS 54 degrees RADIOLOGY RESULTS T [place] 15 degrees RADIOLOGY RESULTS Interpretation ECG Sinus rhythm with occasional Premature ventricular complexes Possible Left atrial enlargement Borderline ECG When compared with ECG of 04-FEB-2024 14:46, QT has shortened Unconfirmed report - interpretation of this ECG is computer generated - see medical record for final interpretation Confirmed by - EMERGENCY ROOM, PHYSICIAN ([id number]), photo editor Jc Rouse ([id number]) on 02/13/2024 1:07:34 PM RADIOLOGY RESULTS 02/13/2024 12:5 1 PM CDT 02/13/2024 1:07 PM CDT Dangelo Sylvester DO ECG ORDERABLES RADIOLOGY RESULTS * CTA Head Neck with Contrast (02/13/2024 12:33 PM CDT) Only the most recent of2 resultswithin the time period is included. Anatomical Region Laterality Modality Head, SUBRAD CT NEURO, SUBRA D CT NEURO, UMP CT NEURO, RAD CT Computed Tomography Impressions 02/13/2024 12:49 PM CDT IMPRESSION: ?? 1. Head CTA demonstrates no aneurysm or stenosis of the major intracranial arteries. 2. Neck CTA demonstrates no stenosis of the major cervical arteries. Findings were discussed with Dr. Sylvester at 12:42 hours CDT. FRAN ROBBINS MD SYSTEM ID: ??[id number] Narrative 02/13/2024 12:49 PM CDT EXAM: CTA HEAD NECK W CONTRAST ??02/13/2024 12:33 PM HISTORY: ??Code Stroke to evaluate for potential thrombolysis and thrombectomy. PLEASE READ IMMEDIATELY. ?? COMPARISON: ??Brain MR, head CT and CTA from 02/04/2024 TECHNIQUE: HEAD and NECK CTA: During rapid bolus intravenous injection of nonionic contrast material, axial images were obtained using thin collimation multidetector helical technique from the base of the upper aortic arch through the [place]. This CT angiogram data was reconstructed at thin intervals with mild overlap. Images were sent to the 3D workstation, and 3D reconstructions were obtained. The axial source images, multiplanar reformations, 3D reconstructions in both maximum intensity projection display and volume rendered models were reviewed, with reconstructions performed by the technologist and the radiologist. CONTRAST: 67mL Isovue-370 FINDINGS: Head CTA demonstrates no intracranial arterial aneurysm or stenosis. Neck CTA demonstrates no internal carotid artery stenosis. No vertebral artery stenosis. 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 Procedure Note Fran Robbins MD - 02/13/2024 EXAM: CTA HEAD NECK W CONTRAST 02/13/2024 12:33 PM HISTORY: Code Stroke to evaluate for potential thrombolysis and thrombectomy. PLEASE READ IMMEDIATELY. COMPARISON: Brain MR, head CT and CTA from 02/04/2024 TECHNIQUE: HEAD and NECK CTA: During rapid bolus intravenous injection of nonionic contrast material, axial images were obtained using thin collimation multidetector helical technique from the base of the upper aortic arch through the [place]. This CT angiogram data was reconstructed at thin intervals with mild overlap. Images were sent to the 3D workstation, and 3D reconstructions were obtained. The axial source images, multiplanar reformations, 3D reconstructions in both maximum intensity projection display and volume rendered models were reviewed, with reconstructions performed by the technologist and the radiologist. CONTRAST: 67mL Isovue-370 FINDINGS: Head CTA demonstrates no intracranial arterial aneurysm or stenosis. Neck CTA demonstrates no internal carotid artery stenosis. No vertebral artery stenosis. 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 IMPRESSION: 1. Head CTA demonstrates no aneurysm or stenosis of the major intracranial arteries. 2. Neck CTA demonstrates no stenosis of the major cervical arteries. Findings were discussed with Dr. Sylvester at 12:42 hours CDT. FRAN ROBBINS MD SYSTEM ID: [id number] Dangelo Sylvester DO IMG CT ORDERABLE S * CT Head w/o Contrast (02/13/2024 12:28 PM CDT) Only the most recent of3 resultswithin the time period is included. Anatomical Region Laterality Modality Head, SUBRAD CT NEURO, SUBRA D CT NEURO, UMP CT NEURO, RAD CT Computed Tomography Impressions 02/13/2024 12:49 PM CDT IMPRESSION: No acute intracranial pathology. FRAN ROBBINS MD SYSTEM ID: ??[id number] Narrative 02/13/2024 12:49 PM CDT EXAM: CT HEAD W/O CONTRAST ??02/13/2024 12:28 PM HISTORY: ??Code Stroke to evaluate for potential thrombolysis and thrombectomy. PLEASE READ IMMEDIATELY. ?? COMPARISON: ??Brain MRI, Head CT and CTA 02/04/2024 TECHNIQUE: Using multidetector thin collimation helical acquisition technique, axial, coronal and sagittal CT images from the skull base to the vertex were obtained without intravenous contrast. Branch Lending Manager (topogram) image(s) also obtained and reviewed. Dose reduction techniques were performed. FINDINGS: No intracranial hemorrhage, mass effect, or midline shift. No acute loss of pollack-white matter differentiation in the cerebral hemispheres. Ventricles are proportionate to the cerebral sulci. Clear basal cisterns. The bony calvaria and the bones of the skull base are normal. Scattered paranasal sinus mucosal thickening. The mastoid air cells are clear. Grossly normal orbits. Procedure Note Fran Robbins MD - 02/13/2024 EXAM: CT HEAD W/O CONTRAST 02/13/2024 12:28 PM HISTORY: Code Stroke to evaluate for potential thrombolysis and thrombectomy. PLEASE READ IMMEDIATELY. COMPARISON: Brain MRI, Head CT and CTA 02/04/2024 TECHNIQUE: Using multidetector thin collimation helical acquisition technique, axial, coronal and sagittal CT images from the skull base to the vertex were obtained without intravenous contrast. Branch Lending Manager (topogram) image(s) also obtained and reviewed. Dose reduction techniques were performed. FINDINGS: No intracranial hemorrhage, mass effect, or midline shift. No acute loss of pollack-white matter differentiation in the cerebral hemispheres. Ventricles are proportionate to the cerebral sulci. Clear basal cisterns. The bony calvaria and the bones of the skull base are normal. Scattered paranasal sinus mucosal thickening. The mastoid air cells are clear. Grossly normal orbits. IMPRESSION: No acute intracranial pathology. FRAN ROBBINS MD SYSTEM ID: [id number] Dangelo Sylvester DO IMG CT ORDERABLE S * Glucose by meter (02/13/2024 12:18 PM CDT) Only the most recent of2 resultswithin the time period is included. Pathologist [facility] GLUCOSE BY METER POCT 95 70 - 99 mg/dL 02/13/2024 12:25 PM CDT LABORATORY POC Blood, venous BLOOD SPECIMEN / Unknown 02/13/2024 12:18 PM CDT 02/13/2024 12:25 PM CDT Dangelo Sylvester DO LAB - BEAKER POC T LABORATORY POC [facility] [address] Lab (1st floor, no room number) [place] [address], [facility] * CBC with platelets and differential (02/13/2024 12:16 PM CDT) Only the most recent of5 resultswithin the time period is included. WBC Count 8.9 4.0 - 11.0 10e3/uL 02/13/2024 12:24 PM CDT [facility] RBC Count 4.89 3.80 - 5.20 10e6/uL 02/13/2024 12:24 PM CDT [facility] Hemoglobin 15.1 11.7 - 15.7 g/dL 02/13/2024 12:24 PM CDT [facility] Hematocrit 44.8 35.0 - 47.0 % 02/13/2024 12:24 PM CDT [facility] MCV 92 78 - 100 fL 02/13/2024 12:24 PM CDT [facility] MCH 30.9 26.5 - 33.0 pg 02/13/2024 12:24 PM CDT [facility] MCHC 33.7 31.5 - 36.5 g/dL 02/13/2024 12:24 PM CDT [facility] RDW 12.4 10.0 - 15.0 % 02/13/2024 12:24 PM CDT [facility] Platelet Count 206 150 - 450 10e3/uL 02/13/2024 12:24 PM CDT [facility] % Neutrophils 66 % 02/13/2024 12:24 PM CDT [facility] % Lymphocytes 24 % 02/13/2024 12:24 PM CDT [facility] % Monocytes 5 % 02/13/2024 12:24 PM CDT [facility] % Eosinophils 4 % 02/13/2024 12:24 PM CDT [facility] % Basophils 1 % 02/13/2024 12:24 PM CDT [facility] % Immature Granulocytes 0 % 02/13/2024 12:24 PM CDT [facility] NRBCs per 100 WBC 0 <1 /100 024 12:24 PM CDT [facility] Absolute Neutrophils 5.9 1.6 - 8.3 10e3/uL 02/13/2024 12:24 PM CDT [facility] Absolute Lymphocytes 2.1 0.8 - 5.3 10e3/uL 02/13/2024 12:24 PM CDT [facility] Absolute Monocytes 0.5 0.0 - 1.3 10e3/uL 02/13/2024 12:24 PM CDT [facility] Absolute Eosinophils 0.3 0.0 - 0.7 10e3/uL 02/13/2024 12:24 PM CDT [facility] Absolute Basophils 0.0 0.0 - 0.2 10e3/uL 02/13/2024 12:24 PM CDT [facility] Absolute Immature Granulocytes 0.0 <=0.4 10e3/uL 02/13/2024 12:24 PM CDT [facility] Absolute NRBCs 0.0 10e3/uL 02/13/2024 12:24 PM CDT [facility] Blood BLOOD SPECIMEN / Unknown Venipuncture / Unknown 02/13/2024 12:16 PM CDT 02/13/2024 12:20 PM CDT Dangelo Sylvester LAB - BLOOD PAM [place]DA[place] LABORATORY [facility] [address] Lab (1st floor, no room number) [place] [address] * Troponin T, High Sensitivity (02/13/2024 12:16 PM CDT) Only the most recent of3 resultswithin the time period is included. [facility] Troponin T, High Sensitivity <6 <=14 ng/L 02/13/2024 12:40 PM CDT [facility] Comment: Either a High Sensitivity Troponin [...] follow-up, or urgent outpatient provocative testing. Blood BLOOD SPECIMEN / Unknown Venipuncture / Unknown 02/13/2024 12:16 PM CDT 02/13/2024 12:20 PM CDT Dangelo Tavares Sylvester LAB - BLOOD PAM SHEETS LABORATORY [facility] [address] Lab (1st floor, no room number) [place] [address] * INR (02/13/2024 12:16 PM CDT) Only the most recent of3 resultswithin the time period is included. INR 0.94 0.85 - 1.15 02/13/2024 12:42 PM CDT [facility] Blood BLOOD SPECIMEN / Unknown Venipuncture / Unknown 02/13/2024 12:16 PM CDT 02/13/2024 12:20 PM CDT Dangelo Sylvester LAB - BLOOD PAM SHEETS [facility] Lab [address] Lab (1st floor, no room number) [place] [address] * Partial thromboplastin time (02/13/2024 12:16 PM CDT) Only the most recent of3 resultswithin the time period is included. Pathologist [facility] aPTT 26 22 - 38 Seconds 02/13/2024 12:42 PM CDT LABORATORY Blood BLOOD SPECIMEN / Unknown Venipuncture / Unknown 02/13/2024 12:16 PM CDT 02/13/2024 12:20 PM CDT Dangelo Sylvester LAB - BLOOD PAM SHEETS [facility] [address] Lab (1st floor, no room number) [place] [address] * hCG Qualitative (02/13/2024 12:16 PM CDT) Only the most recent of2 resultswithin the time period is included. hCG Serum Qualitative Negative Negative PRATEEK 02/13/2024 12:49 PM CDT [facility] Comment:This test is for scr eening purposes. Results should be interpreted along with the clinical picture. Confirmation testing is available if warranted by ordering [id number], HCG Quantitative . Blood BLOOD SPECIMEN / Unknown Venipuncture / Unknown 02/13/2024 12:16 PM CDT 02/13/2024 12:20 PM CDT Dangelo Sylvester DO LAB - BLOOD ORDE TWYLAAYESHA [facility] LABORATORY [facility] [address] [facility] Lab (1st floor, no room number) [place] [address], [facility] * Basic metabolic panel (02/13/2024 12:16 PM CDT) Only the most recent of5 resultswithin the time period is included. [facility] Sodium 140 135 - 145 mmol/L 02/13/2024 12:40 PM CDT LABORATORY Comment:Reference intervals for this test were updated on 06/11/2023 to more accurately reflect our healthy population. There may be differences in the flagging of prior results with similar values performed with this method. Interpretation of those prior results can be made in the context of the updated reference intervals. Potassium 4.3 3.4 - 5.3 mmol/L 02/13/2024 12:40 PM CDT LABORATORY Chloride 103 98 - 107 mmol/L 02/13/2024 12:40 PM CDT LABORATORY Carbon Dioxide (CO2) 25 22 - 29 mmol/L 02/13/2024 12:40 PM CDT LABORATORY Anion Gap 12 7 - 15 mmol/L 02/13/2024 12:40 PM CDT LABORATORY Urea Nitrogen 19.0 6.0 - 20.0 mg/dL 02/13/2024 12:40 PM CDT LABORATORY Creatinine 0.70 0.51 - 0.95 mg/dL 02/13/2024 12:40 PM CDT LABORATORY GFR Estimate >90 >60 mL/min/1. 73m2 02/13/2024 12:40 PM CDT [facility] Calcium 9.6 8.6 - 10.0 mg/dL 02/13/2024 12:40 PM CDT LABORATORY Glucose 97 70 - 99 mg/dL 02/13/2024 12:40 PM CDT LABORATORY Blood BLOOD SPECIMEN / Unknown Venipuncture / Unknown 02/13/2024 12:16 PM CDT 02/13/2024 12:20 PM CDT Dangelo Sylvester DO LAB - BLOOD LUNAE SUDEEP [facility] [address] [facility] Lab (1st floor, no room number) [place] [address], [facility] * MR Brain w/o & w Contrast (02/04/2024 6:30 PM CDT) Only the most recent of2 resultswithin the time period is included. Anatomical Region Laterality Modality Head, SUBRAD MR NEURO, UMP MR NEURO, RAD MR Magnetic Resonance Impressions 02/04/2024 6:45 PM CDT Impression: No acute intracranial pathology. Specifically, there is no evidence for acute infarct, hydrocephalus, mass lesion or intracranial hemorrhage. MARLO CAIN MD Narrative 02/04/2024 6:45 PM CDT MR BRAIN W/O & W CONTRAST 02/04/2024 6:30 PM Provided History: left arm and leg numbness, right sided visual deficit, off balance. ICD-10: Comparison: Same day CT head. Technique: Multiplanar T1-weighted, axial FLAIR, and susceptibility images were obtained without intravenous contrast. Following intravenous gadolinium-based contrast administration, axial T2-weighted, diffusion, and T1-weighted images (in multiple planes) were obtained. Contrast: 10mL Gadavist Findings: There is no mass effect, midline shift, or evidence of intracranial hemorrhage. The ventricles are proportionate to the cerebral sulci. Diffusion-weighted images reveal no abnormal reduced diffusion. Normal major vascular intracranial flow-voids. Postcontrast images demonstrate no abnormal intracranial enhancement. No abnormality of the skull marrow signal. The visualized portions of paranasal sinuses, and mastoid air cells are relatively clear. The orbits are grossly unremarkable. Procedure Note Marlo Cain MD - 02/04/2024 MR BRAIN W/O & W CONTRAST 02/04/2024 6:30 PM Provided History: left arm and leg numbness, right sided visual deficit, off balance. ICD-10: Comparison: Same day CT head. Technique: Multiplanar T1-weighted, axial FLAIR, and susceptibility images were obtained without intravenous contrast. Following intravenous gadolinium-based contrast administration, axial T2-weighted, diffusion, and T1-weighted images (in multiple planes) were obtained. Contrast: 10mL Gadavist Findings: There is no mass effect, midline shift, or evidence of intracranial hemorrhage. The ventricles are proportionate to the cerebral sulci. Diffusion-weighted images reveal no abnormal reduced diffusion. Normal major vascular intracranial flow-voids. Postcontrast images demonstrate no abnormal intracranial enhancement. No abnormality of the skull marrow signal. The visualized portions of paranasal sinuses, and mastoid air cells are relatively clear. The orbits are grossly unremarkable. Impression: No acute intracranial pathology. Specifically, there is no evidence for acute infarct, hydrocephalus, mass lesion or intracranial hemorrhage. MARLO CAIN MD Jovita Vail MD [facility] MRI ORDERABLES * CT Head Perfusion w Contrast - For Tier 2 Stroke (02/04/2024 2:43 PM CDT) Anatomical Region Laterality Modality Head, SUBRAD CT NEURO, SUBRAD CT NEURO, UMP CT N EURO Computed Tomography Impressions 02/04/2024 3:41 PM CDT Impression: 1. No evidence of ischemia or acute infarction on the CT Perfusion examination. 2. Head CTA demonstrates no large vessel occlusion or significant stenosis of the major intracranial arteries. Known left sigmoid dural AV fistula. 3. Neck CTA demonstrates no stenosis of the major cervical arteries. I have personally reviewed the examination and initial interpretation and I agree with the findings. MARLO CAIN MD Narrative 02/04/2024 3:41 PM CDT CTA HEAD NECK W CONTRAST, CT HEAD PERFUSION W CONTRAST 02/04/2024 2:[address] Perfusion Study of the Brain with Contrast CT Angiogram of the Neck with contrast CT Angiogram of the Head with contrast History: ??Code Stroke to evaluate for potential thrombolysis and thrombectomy. PLEASE READ IMMEDIATELY. ICD-10: Comparison: Brain MRI/MRA 01/20/2024, outside CTA 01/13/2024. Cerebral angiogram 01/09/2024 Technique: CT BRAIN PERFUSION: Dynamic perfusion CT of the brain was performed at multiple levels with 10 mm slice thickness; levels were imaged during 2 separate rapid bolus intravenous injections of nonionic iodinated contrast medium, 1) centered at the level of ??the basal ganglia, and 2) centered at the level of the top of the lateral ventricles. Each injection required approximately 40 cc of intravenous nonionic contrast. ??Images were reconstructed and reviewed on the [employer] 3D workstation. HEAD and NECK CTA: Thereafter, postcontrast images were obtained from the aortic arch through the [place]. ??Axial images were obtained using thin collimation multidetector helical technique. This CT angiogram data was reconstructed at thin intervals with mild overlap. Images were sent to the [employer] workstation, and 3D reconstructions and multiplanar reformations were obtained with reconstructions performed by the technologist and the radiologist. The source images, multiplanar reformations, 3D reconstructions in both maximum intensity projection display and volume rendered models were reviewed, Contrast: 67cc of isovue 370 (accession [id number]), 50cc of isovue 370 (accession [id number]) Findings: CT Perfusion: Images documenting relative cerebral blood volume, cerebral blood flow and mean transit time demonstrate no evidence of ischemia or acute infarction. There is normal perfusion of the brain at the visualized levels. Head CTA demonstrates no aneurysm or stenosis of the major intracranial arteries. The anterior communicating artery is patent. 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 Other arterial feeders are not well seen. Neck CTA demonstrates no stenosis of the major cervical arteries on either side. The origins of the great vessels from the aortic arch are patent. The normal distal right internal carotid artery measures 5 mm. The normal distal left internal carotid artery measures 5 mm. No mass is noted within the visualized portions of the cervical soft tissues or lung apices. Multiple lung cysts. Procedure Note Marlo Cain MD - 02/04/2024 CTA HEAD NECK W CONTRAST, CT HEAD PERFUSION W CONTRAST 02/04/2024 2:[address] Perfusion Study of the Brain with Contrast CT Angiogram of the Neck with contrast CT Angiogram of the Head with contrast History: Code Stroke to evaluate for potential thrombolysis and thrombectomy. PLEASE READ IMMEDIATELY. ICD-10: Comparison: Brain MRI/MRA 01/20/2024, outside CTA 01/13/2024. Cerebral angiogram 01/09/2024 Technique: CT BRAIN PERFUSION: Dynamic perfusion CT of the brain was performed at multiple levels with 10 mm slice thickness; levels were imaged during 2 separate rapid bolus intravenous injections of nonionic iodinated contrast medium, 1) centered at the level of the basal ganglia, and 2) centered at the level of the top of the lateral ventricles. Each injection required approximately 40 cc of intravenous nonionic contrast. Images were reconstructed and reviewed on the [employer] 3D workstation. HEAD and NECK CTA: Thereafter, postcontrast images were obtained from the aortic arch through the [place]. Axial images were obtained using thin collimation multidetector helical technique. This CT angiogram data was reconstructed at thin intervals with mild overlap. Images were sent to the [employer] workstation, and 3D reconstructions and multiplanar reformations were obtained with reconstructions performed by the technologist and the radiologist. The source images, multiplanar reformations, 3D reconstructions in both maximum intensity projection display and volume rendered models were reviewed, Contrast: 67cc of isovue 370 (accession [id number]), 50cc of isovue 370 (accession [id number]) Findings: CT Perfusion: Images documenting relative cerebral blood volume, cerebral blood flow and mean transit time demonstrate no evidence of ischemia or acute infarction. There is normal perfusion of the brain at the visualized levels. Head CTA demonstrates no aneurysm or stenosis of the major intracranial arteries. The anterior communicating artery is patent. 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 Other arterial feeders are not well seen. Neck CTA demonstrates no stenosis of the major cervical arteries on either side. The origins of the great vessels from the aortic arch are patent. The normal distal right internal carotid artery measures 5 mm. The normal distal left internal carotid artery measures 5 mm. No mass is noted within the visualized portions of the cervical soft tissues or lung apices. Multiple lung cysts. Impression: 1. No evidence of ischemia or acute infarction on the CT Perfusion examination. 2. Head CTA demonstrates no large vessel occlusion or significant stenosis of the major intracranial arteries. Known left sigmoid dural AV fistula. 3. Neck CTA demonstrates no stenosis of the major cervical arteries. I have personally reviewed the examination and initial interpretation and I agree with the findings. MARLO CAIN MD Jovita Vail MD G CT ORDERABLES * Creatinine POCT (02/04/2024 1:51 PM CDT) Creatinine POCT 0.9 0.5 - 1.0 mg/dL 02/04/2024 5:57 PM CDT [facility] LAB[facility]AT[facility] POC GFR, ESTIMATED POCT >60 >60 mL/min/1.7 3m2 02/04/2024 5:57 PM CDT [facility] POC Blood, venous BLOOD SPECIMEN / Unknown 02/04/2024 1:51 PM CDT 02/04/2024 5:57 PM CDT Jovita Vail MD LAB - BEAKER POCT Performing Organization Address City/[facility]/ZIP Co de Phone Number LABORATORY POC [facility] [address] [facility], [address] [place] [phone] * Extra Purple Top Tube (02/04/2024 1:49 PM CDT) Only the most recent of2 resultswithin the time period is included. Hold Specimen [facility] 02/04/2024 3:16 PM CDT [facility] Blood VENOUS LINE / Unknown Venipuncture / Unknown 02/04/2024 1:49 PM CDT 02/04/2024 2:03 PM CDT Jovita Vail MD LAB - BLOOD ORDERABL ES [facility] LABORATORY [facility] [address] [facility], [address] [place] [address] * Extra Green Top ([place] Heparin) Tube (02/04/2024 1:49 PM CDT) Only the most recent of2 resultswithin the time period is included. Hold Specimen [facility] 02/04/2024 3:16 PM CDT [facility] Blood VENOUS LINE / Unknown Venipuncture / Unknown 02/04/2024 1:49 PM CDT 02/04/2024 2:02 PM CDT Jovita Vail MD LAB - BLOOD ORDERABL ES Performing Organization Address City/[facility]/ZIP Co de Phone Number LABORATORY [facility] [address] [facility], [address] [phone] * Extra Red Top Tube (02/04/2024 1:49 PM CDT) Hold Specimen [facility] 02/04/2024 3:16 PM CDT [facility] LABORATORY Blood VENOUS LINE / Unknown Venipuncture / Unknown 02/04/2024 1:49 PM CDT 02/04/2024 2:02 PM CDT Jovita Vail MD LAB - BLOOD ORDERABL ES Performing Organization Address City/[facility]/ZIP Co de Phone Number LABORATORY [facility] [address] [facility], [address] [phone], [facility] * Extra Blue Top Tube (02/04/2024 1:49 PM CDT) Hold Specimen [facility] 02/04/2024 3:16 PM CDT LABORATORY Blood VENOUS LINE / Unknown Venipuncture / Unknown 02/04/2024 1:49 PM CDT 02/04/2024 2:03 PM CDT oJvita Vail MD LAB - BLOOD ORDERABL ES LABORATORY [facility] [address] [facility], [address] [phone] * Lupus Anticoagulant Panel (01/21/2024 1:20 PM [...] of an antiphospholipid syndrome, recommend anticardiolipin and dznj-6-ejgvidxqwzy n (IgG and IgM) antibody tests. Mikayla Cooper MD, PhD [facility] 4 2:25 PM CDT [facility] Blood STRUCTURE OF RIGHT HAND / Unknown Venipuncture / Unknown 01/21/2024 1:20 PM CDT 01/21/2024 1:26 PM CDT Airam Jay MD LAB - BLOOD ORDERABL ES Performing Organization Address City/[facility] Co de Phone Number UM SPECIAL COAGULATION [facility] Coagulation 500 [facility], Room [address] * Factor 2 assay (01/21/2024 1:20 PM CDT) [facility] Factor 2 Assay 131 60 - 140 % 01/22/2024 9:53 AM CDT UM [facility] COAGULATION Comment: The Factor 2 activity level is not a screening test for the Prothrombin 44679 mutation. Blood STRUCTURE OF RIGHT HAND / Unknown Venipuncture / Unknown 01/21/2024 1:20 PM CDT 01/21/2024 1:26 PM CDT Airam Jay MD LAB - BLOOD ORDERABL ES Performing Organization Address City/[facility]/ZIP Co de Phone Number UM SPECIAL COAGULATION UM Special Coagulation 500 [facility], [address] [phone] * EEG Video 2-12 HRS [facility] (01/21/2024 12:15 PM CDT) Narrative [facility] - 01/21/2024 3:06 PM CDT EEG Video 2-12 HRS [facility] V[facility] EEG DATE: 01/21/2024 VIDEO EEG [id number] VIDEO EEG DAY#: 1 VIDEO EEG SOURCE [...] ORDERABL ES SPECIALTY CORE/PROT/ENDO Specialty Core/Prot/Endo 500 [facility], Room [address] * MRA Neck (Carotids) wo & w [...] ANA LATHAM MD Airam Jay MD [facility] MRI ORDERABLES * MRA Brain ([place]) wo Contrast (01/20/2024 6:50 PM CDT) Anatomical Region Laterality Modality Head, SUBRAD MR NEURO, UMP MR NEURO, RAD MR Magnetic Resonance Impressions 01/20/2024 7:49 PM CDT IMPRESSION: No intracranial arterial aneurysm or stenosis. I have personally reviewed the examination and initial interpretation and I agree with the findings. 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 Outside CTA report for 01/09/2024 obtained through Care Everywhere. 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 Outside CTA report for 01/09/2024 obtained through Care Everywhere. TECHNIQUE: Using a 3D eeiq-dg-ozhjik image acquisition technique, MRA of the major [...] Airam Jay MD IMG MRI ORDERABLES * Lactic acid whole blood (01/19/2024 11:55 PM CDT) Lactic Acid 1.1 0.7 - 2.0 mmol/L 01/20/2024 12:03 AM CDT UR LABORATORY Blood STRUCTURE OF RIGHT UPPER LIMB / Unknown Venipuncture / Unknown 01/19/2024 11:55 PM CDT 01/20/2024 12:01 AM CDT Len Camejo DO LAB - BLOOD ORDERABLES UR LABORATORY [facility] [address] [facility], [address] [place] [address] * Prolactin (01/19/2024 9:33 PM CDT) Prolactin 22 5 - 23 ng/mL 01/19/2024 11:23 PM CDT UU LABORATORY Blood BLOOD SPECIMEN / Unknown Venipuncture / Unknown 01/19/2024 9:33 PM CDT 01/19/2024 9:54 PM CDT Randy Kwon APRN, CNP LAB - BLOOD ORDER NASRIN UU LABORATORY [facility] Lab [address] [facility], [address] [place] [address] * Fibrinogen activity (01/19/2024 9:33 PM CDT) Fibrinogen Activity 417 170 - 490 mg/dL 01/19/2024 10:18 PM CDT UR LABORATORY Blood BLOOD SPECIMEN / Unknown Venipuncture / Unknown 01/19/2024 9:33 PM CDT 01/19/2024 9:54 PM CDT Randy Kwon APRN, CNP LAB - BLOOD ORDER NASRIN UR LABORATORY [facility] [address] [facility], Room [address] [phone] * Platelet count - Routine (01/18/2024 5:40 AM CDT) Platelet Count 217 150 - 450 10e3/uL 01/18/2024 6:15 AM CDT UR LABORATORY Blood STRUCTURE OF RIGHT UPPER LIMB / Unknown Venipuncture / Unknown 01/18/2024 5:40 AM CDT 01/18/2024 6:13 AM CDT Parminder Del Angel MD LAB - BLOOD ORDERABL ES UR LABORATORY [facility] Lab [facility], Room [address] [phone] * Lab Result - HIM Scan [...] to direct LDL Fasting (07/27/2021 8:57 AM HEAD START TEACHER) Cholesterol 202(H) <200 mg/dL 07/28/2021 10:12 AM HEAD START TEACHER [facility] LAB[facility]ATORY Triglycerides 91 <150 mg/dL 07/28/2021 10:12 AM HEAD START TEACHER [facility] LAB[facility]ATORY Direct Measure HDL 56 >=50 mg/dL 07/28/2021 10:12 AM HEAD START TEACHER [facility] LAB[facility]ATORY LDL Cholesterol Calculated 128(H) <=100 mg/dL 07/28/2021 10:12 AM HEAD START TEACHER [facility] LAB[facility]ATORY Non HDL Cholesterol 146(H) <130 mg/dL 07/28/2021 10:12 AM HEAD START TEACHER [facility] LABORATORY Patient Fasting > 8hrs? Yes 07/28/2021 10:12 AM HEAD START TEACHER [facility] LABORATORY Blood STRUCTURE OF RIGHT UPPER LIMB / Unknown Venipuncture / Unknown 07/27/2021 8:57 AM HEAD START TEACHER 07/27/2021 8:57 AM HEAD START TEACHER Narrative OX LABORATORY - 07/28/2021 10:12 AM HEAD START TEACHER Cholesterol Desirable: ??<200 mg/dL Triglycerides Normal: ??Less [...] equal to 220 mg/dL Denise Woodson APRN ROLL LINE OPERATOR LAB - BLOOD ORDERABLES OX LABORATORY [facility] [address] Lab (no room number, 1st floor of clinic) [place] [address], [facility] [phone] from Last 3 Months or Most Recently Relevant to Health Maintenance Additional Health Concerns Active Problems Noted Date Diagnosed Date Increased risk of re-admission 02/18/2024 Advance Directives For more information, please contact: [phone] * Full Code (Latest Code Status on File) Date Activated Date Inactivated Comments 01/24/2024 12:40 PM 02/04/2024 1:43 PM Question Answer Comments Code status determined [...] patie nt/ legal decision maker Care Teams Bioprocess Engineer Relationship Specialty Start Date End Date Winston Villatoro OD [facility] [place] [address] [facility] [address] [place] [address] PCP - Ophthalmology Ophthalmology 02/11/13 Denise Woodson Ra, APRN ROLL LINE OPERATOR [address] [place] [address] PCP - General Family Practice 09/21/20 Denise Woodson Ra, APRN ROLL LINE OPERATOR [address] [place] [address] Assigned PCP 07/17/20 Usha Simon APRN ROLL LINE OPERATOR [address] [place], [place] [id number] [address] Nurse Practitioner Neurological Surgery 01/24/24 Dangelo Salinas MD [address] [place] [address] Neurology 01/27/24 Usha Simon APRN ROLL LINE OPERATOR [address] [place], [place] [address], [place] [address] Assigned Neuroscience Provider 02/06/24 Anastasia Stearns, RN Lead Information Technology Director 02/06/24 Germaine Lopez, CHW Community Health Worker Primary Care - CC 02/18/24
--- OUTSIDE RECORDS SUMMARY | 2024-02-22 15:19 | XMS_ITS | Encounter Summary ---
Author Organization [facility] Address [address] [place] [address] Care Team Providers Care Stable Cleaner Name Role Phone Darius Shaw M.D. Primary Care Provider [phone] Reason for Visit * Reason Comments Med Refill Encounter Details Date Type Department Care Team (Late st Contact Info) Description 01/28/2024 Refill Department of Family Medicine, [facility], in [address] [phone] Darius Shaw M.D. [address] [place] [phone] Med Refill Social History Tobacco Use Types [...] week 01/10/2023 How often do you attend yazdanism or advent serv ices? Never 01/10/2023 Do you belong to any clubs o r organizations such as yazdanism groups, unions, fraternal or athletic groups, or [...] Answer Date Recorded PHQ-2 Score 3 01/10/2023 [facility] - Occupational Stress Questionnaire Answer Date [...] place to sleep or slept in a longterm (including now)? No 01/10/2023 Depression Answer Date [...] documented as of this encounter Care Teams Stable Cleaner Relationship Specialty Start Date End Date Darius Shaw M.D. WES: [phone] [address] [place] [phone] PCP - General Family Medicine 09/27/22 documented as of this encounter
--- OUTSIDE RECORDS SUMMARY | 2024-02-22 15:19 | XMS_ITS ---
Author Organization [facility] Address [address] [place] [address] Care Team Providers Care Integrity Director Name Role Phone Unavailable Unavailable Unavailable Surgery Details Not on file Complications Check Surgery Details section. Procedure Estimated Blood Loss Check Surgery Details section. Procedure Findings Check Surgery Details section. Procedure Specimens Taken Check Surgery Details section.
--- OUTSIDE RECORDS SUMMARY | 2024-02-22 15:19 | XMS_ITS | Encounter Summary ---
Author Organization [facility] Address [address] [place] [address] Care Team Providers Care Jewelry Drill Operator Name Role Phone Darius Shaw M.D. Primary Care Provider Encounter Details Date Type Department Care Team (Late st Contact Info) Description 05/12/2013 Historical Ophthalmology [facility] Jonathan Bonilla M.D. [address] [place] [phone] Social History Tobacco Use Types Packs/Day Years [...] corneal thickness CDM Reports - EYEGEN Id: [id number] Status: Fnl documented in this encounter Plan of Treatment Not on file documented as of this encounter Visit Diagnoses Not on filedocumented in this encounter Additional Health Concerns Infection Onset Date Last Indicated Resolved Time COVID19 Pending 07/11/2020 07/11/2020 07/12/2020 5 :56 PM CDT COVID19 Pending 07/17/2020 07/17/2020 07/17/2020 9 :18 PM BRANCH OPERATIONS COORDINATOR COVID19 Pending 09/19/2020 09/19/2020 10/09/2020 4 :45 AM BRANCH OPERATIONS COORDINATOR COVID19 Pending 10/25/2020 10/26/2020 10/27/2020 9 :59 AM BRANCH OPERATIONS COORDINATOR COVID19 Pending 06/03/2021 06/03/2021 06/03/2021 9 :40 AM CDT COVID19 Pending 06/03/2021 06/03/2021 06/03/2021 1 0:36 PM CDT COVID19 Pending 08/09/2021 08/09/2021 08/11/2021 1 2:57 AM BRANCH OPERATIONS COORDINATOR COVID19 Pending 06/26/2022 06/26/2022 06/26/2022 5 :47 PM CDT Assessment Noted Time PHQ-9 Depression Total Score: 8 09/18/19 13 7:41 AM BRANCH OPERATIONS COORDINATOR documented as of this encounter Care Teams Jewelry Drill Operator Relationship Specialty Start Date End Date Darius Shaw M.D. [address] [place] [phone] PCP - General Family Medicine 09/27/22 documented as of this encounter
--- OUTSIDE RECORDS SUMMARY | 2024-02-22 15:19 | XMS_ITS | Clinical Summary ---
Author Organization [facility] Address [place], [place] [address] Care Team Providers Care Optical Instrument Repairer Name Role Phone Keira Irvin MD Primary Care Provider + Allergies Active Allergy Reactions Criticality Noted Date Comments Acetaminophen-Codeine Nausea And Vomiting,Other - Describe In Comment Field 01/10/2022 Bupropion Other - Describe In Comment Field 01/19/2011 Diarrhea and stomach ache Erythromycin 07/04/2007 Mold Dizziness 08/22/2012 Pollen Extracts *Unknown 08/22/2012 Medications Medication Sig Dispensed Refills Start Date End Date Status cyclobenzaprine (FLEXERIL) 10 mg tabletIndications:C ervical disc syndrome Take 1 tablet by mouth 3 times daily. As needed for muscle spasm 30 tablet 1 05/16/2012 Active albuterol HFA (PRO-AIR,VENTOLIN,P ROVENTIL) 90 mcg/actuation inhalerIndications: Mild persistent asthma with acute exacerbation Inhale 2 Puffs by mouth 4 times daily if needed. 1 Inhaler 0 01/13/2016 Active ondansetron (ZOFRAN) 4 mg tabletIndications:P eriumbilical pain Take 1 tablet by mouth every 8 hours if needed for Nausea/Vomiting. 30 tablet 11/02/2019 Active Magnesium Amino Acid Chelate 100 mg tab Take 100 mg by mouth. Active ketorolac (TORADOL) 10 mg tablet Take 10 mg by mouth every 6 hours if needed. 06/03/2021 Active LORazepam (ATIVAN) 0.5 mg tab as needed. Active fluticasone furoate-vilanteroL (Breo Ellipta) 200mcg/25mcg inhalerIndications: BPD (bronchopulmonary dysplasia) Inhale 1 Puff by mouth once daily. 90 Each 3 03/07/2022 Active traZODone (DESYREL) 100 mg tabletIndications:O ther insomnia Take 1 Tablet (100 mg) by mouth at bedtime. 90 Tablet 3 03/07/2022 Active methylPREDNISolone (MEDROL DOSEPAK) 4 mg tabletIndications:A VF (arteriovenous fistula) (HC) Take by mouth as instructed per packaging. 21 Tablet 01/09/2024 Active acetaminophen (TYLENOL EXTRA STRGTH) 500 mg tabletIndications:A VF (arteriovenous fistula) (HC) Take 1-2 Tablets (500-1,000 mg) by mouth every 6 hours if needed for Headache or Pain. Max acetaminophen dose: 4000mg in 24 hrs. 01/09/2024 Active aspirin 325 mg tabletIndications:C erebrovascular accident (CVA), unspecified mechanism (HC) Take 1 Tablet (325 mg) by mouth once daily. 01/13/2024 Active Active Problems Problem Noted Date Diagnosed [...] Encounters Date Type Department Care Team Description 02/03/2024 Lab Requisition [facility] [phone] Unknown, Doctor [facility] [address] [place] [address] Fercho Valladares MD Referral 01/15/2024 11:00 AM CDT Ancillary Procedure [place] [facility] [place] [facility] & [address] [phone] 01/15/2024 Office Visit [facility] [address] [place] [phone] Bette Mantilla MD Telehealth ([facility]) 01/15/2024 Travel 01/14/2024 Office Visit [facility] [address] [place] [phone] Bette Mantilla MD Telehealth ([facility]) 01/14/2024 Telephone [facility] [address] [place] [address] Fercho Valladares MD Referral 01/14/2024 [facility] [address] [place] [phone] Roshni Molina MD Telehealth ([facility]) 01/13/2024 Telephone [facility] [address] [place] [address] Anastasia Walden NP Error-please disregard 01/13/2024 Telephone [facility] [address] [place] [address] Anastasia Walden NP Questions 01/10/2024 Orders Only [facility] [address] [place] [address] Timoteo Gutierrez MD <No scans attached> 01/10/2024 Telephone [facility] [address], [place] [address] Aby Saxena NP Follow Up 01/09/2024 1:20 PM CDT - 01/09/2024 3:30 PM CDT Hospital Encounter [facility] [address] [place] [address] Timoteo Gutierrez MD AVF (arteriovenous fistula) (HC) (Primary Dx); Tinnitus, left ear; Headache Discharge Disposition: Home Self Care 01/09/2024 Travel from Last 3 Months Immunizations Name Administration Dates Next Due COVID-19 vaccine (Pfizer-Bio NTech 30mcg/0.3mL) PF, MDV 07/07/2021 Hepatitis B, Unspecified [...] Father he was adopted, and young in [facility] Mother Relation Name Status [...] Procedure Name Priority Date/Time Associated Diagnosis Comments LEVETIRACETAM (KEPPRA) Routine 02/02/2024 9:54 PM CDT ECHO TTE COMPLETE W CONTRAST W BUBBLE Routine 01/15/2024 12:28 PM CDT CVA (cerebral vascular accident) (HC) CT ANGIO HEAD AND NECK CAROTID STAT 01/09/2024 12:02 PM CDT IR ANGIO CAROTID CEREBRAL BILATERAL Routine 01/09/2024 9:16 AM CDT Tinnitus, left ear Headache LIPID PANEL W REFLEX MEASURED LDL Routine 08/03/2011 10:31 AM OBSTETRIC ASSISTANT Screening for other and unspecified cardiovascular conditions from Last 3 Months or Most Recently Relevant to Health Maintenance Results * LEVETIRACETAM (KEPPRA) (02/02/2024 9:54 PM CDT) LEVETIRACETAM (KEPPRA) 8.6 6.0 - 46.0 ug/mL 02/03/2024 3:25 PM CDT [facility] TRAL LABORATORY Blood BLOOD SPECIMEN / Unknown Client Collect / Unknown 02/02/2024 9:54 PM CDT 02/03/2024 2:58 PM CDT Narrative [facility] - 02/03/2024 3:25 PM CDT Reference Range is based on Trough Steady State in patients receiving recommended daily dose. ??The relationship between serum concentrations and toxicity is not known. Bivaracetam (Briviact??) interferes with measurements of levetiracetam (Keppra??) in the ARK Levetiracetam Assay Doctor Unknown SEND OUTS [facility] [address] [place] [address], * ECHO TTE COMPLETE W CONTRAST W BUBBLE (01/15/2024 12:28 PM CDT) AORTIC VALVE MEAN PG 4 mmHg EJECTION FRACTION 43 % LVEDD 4.8 cm EJECTION FRACTION 55 - 60% Anatomical Region Laterality Modality Ultrasound 01/15/2024 11:2 7 AM CDT Narrative 01/15/2024 1:17 PM CDT ECHOCARDIOGRAM CHRISTOPHER AYN MELONY ?Accession#: ?? [id number] : ?1975 48 years Study Date: ?? 01/15/2024 11:27:48 AM Gender: F ? BP: ? 154/84 mmHg Height: 173.00 cm ? BSA: ?2.09 m? ? ? Weight: 95.00 kg ?Tech: ? MSR ?Referring MD: HANG BERGERON Site: ? [facility] Reading Location: Mobile STAT Patient Location: [...] Contrast documentation: 3.5 ml diluted Definity, lot #[id number], ND# [id number] was administered peripherally to enhance visualization of all left ventricular segments. . This study was interpreted by an [facility] accredited facility. CC: HIM (med records) [facility], Med/Surg - IP [facility]. ??Final ?? Procedure Note Dillan Garcia MD - 01/15/2024 ECHOCARDIOGRAM CHRISTOPHER TY : 1975 48 years Study Date: 01/15/2024 11:27:48 AM Gender: F BP: 154/84 mmHg Height: 173.00 cm BSA: 2.09 m? ? ? Weight: 95.00 kg Tech: MSR Referring MD: HANG BERGERON Site: [facility] Reading Location: Mobile STAT Patient [...] documentation: 3.5 ml diluted Definity, lot #[id number], [facility]#[id number] was administered peripherally to enhance visualization of allleft ventricular segments. . This study was interpreted by an [facility] accredited facility. CC: PIPPA (med records) [facility], Med/Surg - IP [facility]. Final Hang Bergeron DO ECHO ORD * [...] 01/09/2024 1:12:05 PM (Electronically Signed) Anastasia Walden WAX ENGRAVER CT * IR ANGIO CAROTID CEREBRAL BILATERAL [...] of the examination. Timoteo Gutierrez M.D. Neurointerventionalist [facility] Pager: Office/Appointments: Answering Service: [facility]: [email or web address] Narrative 01/09/2024 9:57 AM CDT PHYSICIAN: Timoteo Gutierrez. DATE: 01/09/2024. PROCEDURE: CEREBRAL ANGIOGRAM Selective catheter placement, right internal carotid artery, with angiography of the intracranial carotid circulation (CPT 66360) Selective catheter placement, right external carotid artery, with angiography of the external carotid circulation (CPT +47103) Selective catheter placement, left internal carotid artery, with angiography of the intracranial carotid circulation (CPT 90395) Selective catheter placement, left external carotid artery, with angiography of the external carotid circulation (CPT +27447) Selective catheter placement, right vertebral artery, with angiography of the vertebral circulation (CPT 33068) Selective catheter placement, left vertebral artery, with angiography of the vertebral circulation (CPT 13319) Ultrasound guidance for vascular access: right radial artery access (CPT +29548) Monitored conscious sedation: 50min (CPT 61134, CPT +47107 x2) CLINICAL HISTORY: 48 year-old female with [...] right radial percutaneous arterial puncture and a 5-[place] sheath was placed. After infusion of a heparin, verapamil and nitroglycerin cocktail via the sheath, contrast was then injected via the sheath to assess the arterial anatomy in the right forearm. Subsequently using a 5-[place] angled tip catheter and glidewire combination, selective [...] The anterior communicating artery is ??opacified from [id number]. The capillary, venous, and venous sinus phases [...] ??The anterior communicating artery is opacified from [id number]. Right vertebral artery injection: There is normal [...] W REFLEX MEASURED LDL (08/03/2011 10:31 AM OBSTETRIC ASSISTANT) [facility] CHOLESTEROL,TOTAL 171 110 - 199 mg/dL [facility] TRIGLYCERIDES 67 <150 mg/dL [facility] HDL CHOLESTEROL 43 >40 mg/dL [facility] CHOL/HDL RATIO 3.98 <4.51 [facility] LDL CHOLESTEROL 115 <131 mg/dL [facility] PATIENT STATUS Fasting [facility] Blood specimen (specimen) BLOOD SPECIMEN / Unknown 08/03/2011 10:31 AM OBSTETRIC ASSISTANT 08/03/2011 10:23 AM OBSTETRIC ASSISTANT Jasvir Pickens MD CHEMISTRY Performing Organization Address City/State/[facility] Co de Phone Number [facility] [address] [place] [address] from Last 3 Months or Most Recently Relevant to Health Maintenance Advance Directives * Full Code (Latest Code Status on File) Date Activated Date Inactivated Comments 01/09/2024 7:44 AM 01/09/2024 6:26 PM Question Answer Comments Code Status Discussion: Reviewed Preferences Care Teams Optical Instrument Repairer Relationship Specialty Start Date End Date Keira Irvin MD [address] [place] [address] PCP - General Family Practice 01/08/24
--- OUTSIDE RECORDS SUMMARY | 2024-02-22 15:20 | XMS_ITS | Encounter Summary ---
Author Organization [facility] Address [address] [place] [address]. [place] [address] Care Team Providers Care Learning And Development Specialist Name Role Phone Winston Villatoro OD Unavailable [phone] Denise Woodson Ra, APRN BRICK KILN WORKER Unavailable + [phone] Denise Woodson Ra PUMP HOUSE OPERATOR BRICK KILN WORKER Primary Care Provid er Usha Simon APRN BRICK KILN WORKER Unavailable + [phone] Dangelo Salinas MD Unavailable Usha Simon APRN BRICK KILN WORKER Unavailable + [phone] Anastasia Stearns RN Unavailable [phone] Reason for Visit * Reason Onset Date Comments Medication Request 02/14/2024 Forms 02/14/2024 Encounter Details Date Type Department Care Team (Late st Contact Info) Description 02/14/2024 [facility] [place] [facility] [address] [place] [address] Denise Woodson Ra, APRN BRICK KILN WORKER [address] [place] [address] Medication Request; Forms Social History Tobacco Use Types Packs/Day Years [...] encounter Miscellaneous Notes * Telephone Encounter - Denise Woodson Ra, APRN CNP - 02/14/2024 3:00 PM CDT Meds refilled. CHIKIS * Telephone Encounter - Filomena Gomez RN - 02/14/2024 10:53 AM CDT Denise- see [email or web address] message below. Are you taking over requested medications? Also I do not see forms encounter and note to pick-up form? Please advise. Filomena Gomez RN documented in this encounter Plan of Treatment Upcoming Encounters Date Type Department Care Team (Late st Contact Info) Description 02/26/2024 1:40 PM CDT Appointment [facility] [address] [place] [phone] Denise Woodson Ra, APRN BRICK KILN WORKER [address] [place] [address] 02/26/2024 2:15 PM CDT Therapy Visit [facility] [address] [phone] Danya You PA [address] [address] Charis Chacon, [facility] [address] [place] [address] 02/26/2024 3:00 PM CDT Therapy Visit [facility] [address] [place] [phone] Danya You, PA [address] [address] Isabel Beaulieu, OTR [facility] [address] [place] [address] 02/27/2024 4:45 PM CDT Therapy Visit [facility] [address] [place] [address] Danya You, PA [address] [id number] Vanessa Duggan, PT 03/05/2024 1:30 PM CDT Therapy Visit [facility] [address] [place] [address] Danya You, AMAIRANI [address] [address] Isabel Beaulieu, OTR [facility] [address] [place] [address] 03/05/2024 3:15 PM CDT Therapy Visit [facility] [address] [place] [address] Danya You, AMAIRANI [address] [address] Charis Chacon, [facility] [address] [place] [address] 03/05/2024 4:15 PM CDT Therapy Visit [facility] [address] [place] [phone] Danya You, PA [address] [place] [address] Delicia George, PT [address] [address] 03/11/2024 2:15 PM CDT Therapy Visit [facility] [address] [place] [address] Danya You, PA [address] [place] [address] Isabel Beaulieu, OTJah [facility] [address] [place] [address] 03/11/2024 3:00 PM CDT Therapy Visit [facility] [address] [place] [address] Danya You, PA [address] [place] [address] Charis Chacon, [facility] [address] [place] [address] 03/11/2024 4:15 PM CDT Therapy Visit [facility] [address] [place] [address] Danya You, PA [address] [place] [address] Delicia George, PT [facility] [address] [place] [address] 03/17/2024 10:00 AM CDT Office Visit [facility] [address] [place] [address] Denise Woodson Ra, PUMP HOUSE OPERATOR BRICK KILN WORKER [address] [place], [place] [address] 03/17/2024 1:30 PM CDT Therapy Visit [address] [phone] Danya You PA [address] [place] [address]35[address] Isabel Beaulieu, OTJah [address] [address] 03/17/2024 2:30 PM CDT Therapy Visit [address] [phone] Danya You, PA [address] [place] [address] Charis Chacon, [facility] [address] [place] [address] 03/17/2024 4:00 PM CDT Therapy Visit [address] [phone] Danya You PA [address] [place] [address] Vanessa Duggan, PT 03/23/2024 10:30 AM CDT Office Visit [facility] [address] [place] [phone] Denise Woodson Ra, PUMP HOUSE OPERATOR BRICK KILN WORKER [address] [place] [address] 03/26/2024 1:30 PM CDT Therapy Visit [address] [phone] Danya You, AMAIRANI [address] [place] [address] Isabel Beaulieu, OTR [address] [address] 03/26/2024 2:30 PM CDT Therapy Visit [address] [phone] Danya You, PA [address] [address] Charis Chacon, [facility] [address] [place] [address] 03/26/2024 3:30 PM CDT Therapy Visit [address] [phone] Danya You, AMAIRANI [address] [facility] [address] [place] [address] Delicia George, PT [address] [address] 04/02/2024 2:15 PM CDT Therapy Visit [address] [address] Danya You, PA [address] [address] Isabel Beaulieu, OTR [address] [address] 04/02/2024 3:15 PM CDT Therapy Visit [address] [address] Danya You, PA [address] [address] Charis Chacon, [facility] [address] [place] [address] 04/02/2024 4:15 PM CDT Therapy Visit [address] [phone] Danya You, PA [address] [address] Delicia George, PT [address] [address] 04/09/2024 3:15 PM CDT Therapy Visit [address] [place] [address] Danya You PA [address] [place] [address] Charis Chacon, [facility] [address] [place] [address] 04/09/2024 4:15 PM CDT Therapy Visit [address] [address] Danya You PA [address] [place] [address] Delicia George, PT [facility] [address] [address] 04/15/2024 9:30 AM CDT Therapy Visit [address] [address] Danya You, PA [address] [place] [address] Danya Restrepo, JUAN 04/23/2024 2:30 PM CDT Therapy Visit [address] [address] Danya You PA [address] [place] [address] Charis Chacon, [facility] [address] [place] [address] 05/05/2024 2:30 PM CDT Office Visit [facility] [address], [address] [place] [address] Rohit Barcenas MD [address] [facility] [address] [place] [address] 06/23/2024 11:00 AM CDT Virtual Visit [facility] [address] [place] [address] Kristin Vázquez, [facility] [address] [place] [address] 06/30/2024 2:00 PM CDT Virtual Visit [facility] [address] [place] [address] Kristin Vázquez, [facility] [address] [place] [address] documented as of this encounter Visit Diagnoses Diagnosis Cerebrovascular accident (CVA), unspecified mechanism (H) History of seizure documented in this encounter Additional Health Concerns Assessment Noted Time PHQ-9 Depression Total Score: 16 024 3:27 PM CDT documented as of this encounter Care Teams Learning And Development Specialist Relationship Specialty Start Date End Date Winston Villatoro, AMELIE [facility] [place] [address] [facility] [address] [place] [address] PCP - Ophthalmology Ophthalmology 02/11/13 Denise Woodson Ra, APRN BRICK KILN WORKER [address] [address] PCP - General Family Practice 09/21/20 Denise Woodson Ra, APRN BRICK KILN WORKER [address] [address] Assigned PCP 07/17/20 Usha Simon APRN BRICK KILN WORKER [address] [address] Nurse Practitioner Neurological Surgery 01/24/24 Dangelo Salinas MD [address] [place] [address] Neurology 01/27/24 Usha Simon APRN BRICK KILN WORKER [address] [address] Assigned Neuroscience Provider 02/06/24 Anastasia Stearns, RN Lead Residential Counselor 02/06/24 documented as of this encounter
--- OUTSIDE RECORDS SUMMARY | 2024-02-22 15:20 | XMS_ITS ---
Care Plan Created on: February 22, 2024 NoahHoodAlcon A : 1975 Sex: Female Author Organization [facility] Address [address] [place] [address] Care Team Providers Care Mexican Food Maker Name Role Phone Winston Villatoro OD Unavailable [phone] Denise Woodson Ra, APRN SUBCONTRACTS MANAGER Unavailable [phone]- [phone] Denise Woodson Ra SYSTEM SOFTWARE PROGRAMMER SUBCONTRACTS MANAGER Primary Care Provid er Usha Simon APRN SUBCONTRACTS MANAGER Unavailable [phone] Dangelo Salinas MD Unavailable Usha Simon APRN SUBCONTRACTS MANAGER Unavailable [phone] Anastasia Stearns RN Unavailable [phone] Germaine Lopez CHW Unavailable [phone] Active Problems Problem Noted Date Diagnosed Date [...] Date Resolved Date Dysthymic disorder 10/08/2007 8 Additional Health Concerns Active Problems Noted Date Diagnosed Date Increased risk of re-admission 02/18/2024 Goals Goal Patient Goal Type Associated Problems [...] my providers as scheduled/recommended - Call mental [facility] # to inquire about sooner appointment (care [...] clinic with 24/7 after hours services available. Truck Driver Teamster will remain available as needed. Interventions Intervention Entry Date Outcome Review Medical Plan of Care with patient to identify barriers to accessing appropriate level of care 02/18/2024 Provide education on when to seek different levels of care (Emergency Dept, Urgent Care, Primary Care) 02/18/2024 Related Goals and Interventions Goal Associated Intervent ions I would like additional reso urces and support to manage my health and prevent future avoidable ED visits/hospital admissions Review Medical Plan of Care with patient to identify barriers to accessing appropriate level of care; Provide education on when to seek different levels of care (Emergency Dept, Urgent Care, Primary Care)
--- OUTSIDE RECORDS SUMMARY | 2024-02-22 15:20 | XMS_ITS | Referral Summary ---
Author Organization [facility] Address [address] [place] [address] Care Team Providers Care Batch Analyst Name Role Phone ShaunaWinston OD Unavailable [phone] Denise Woodson Ra, APRN ABSENCE MANAGEMENT CONSULTANT Unavailable + [phone] Denise Woodson Ra PURCHASING BUYER ABSENCE MANAGEMENT CONSULTANT Primary Care Provid er Usha Simon APRN ABSENCE MANAGEMENT CONSULTANT Unavailable [phone] Dangelo Salinas MD Unavailable Usha Simon APRN ABSENCE MANAGEMENT CONSULTANT Unavailable [phone] Anastasia Stearns RN Unavailable Germaine Lopez CHW Unavailable Encounters Date Type Department Care Team Description 02/19/2024 Travel 02/19/2024 3:00 PM CDT Therapy Visit [address] [phone] Danya You PA Peterson, Megan A, OTR Cerebrovascular accident (CVA), unspecified mechanism (H) (Primary Dx) 02/17/2024 Travel 02/17/2024 2:45 PM CDT Therapy Visit [address] [phone] Danya You PA Choo, Sara J, WILL CALL ORDER CLERK Cerebrovascular accident (CVA), unspecified mechanism (H) (Primary Dx); Cognitive communication deficit 02/15/2024 Travel 02/14/2024 Telephone [facility] [address] [place] [phone] Denise Woodson Ra, APRN CNP 02/14/2024 MyC Medical Advice [facility] [address] [place] [address] Denise Woodson Ra, PURCHASING BUYER ABSENCE MANAGEMENT CONSULTANT Medication Request; Forms 02/14/2024 Travel 02/14/2024 12:45 PM CDT Therapy Visit [address] [phone] Danya You PA Peterson, Megan A, OTR Cerebrovascular accident (CVA), unspecified mechanism (H) (Primary Dx) 02/14/2024 2:00 PM CDT Therapy Visit [address] [phone] Danya You PA Raasch, Sharon, JUAN Cerebrovascular accident (CVA), unspecified mechanism (H) (Primary Dx) 02/14/2024 2:45 PM CDT Therapy Visit [address] [phone] Danya You, Maria Eugenia Palencia, PT Cerebrovascular accident (CVA), unspecified mechanism (H) (Primary Dx) 02/13/2024 Travel 02/13/2024 12:11 PM CDT - 02/13/2024 3:28 PM CDT Emergency [facility] Emergency Dept [address] [place] [address] Dangelo Sylvester DO Dizziness Discharge Disposition: Home or Self Care 02/12/2024 Telephone [facility] Neurosurgery Clinic [address] [phone] Robin Zepeda MD 02/12/2024 3:40 PM CDT Virtual Visit [facility] Neurosurgery [address] [phone] Robin Zepeda MD Dural arteriovenous fistula (Primary Dx) 02/07/2024 2:00 PM CDT Therapy Visit [facility] [address] [phone] Danya You PA Raasch, Sharon, WILL CALL ORDER CLERK Cerebrovascular accident (CVA), unspecified mechanism (H) (Primary Dx) 02/06/2024 Telephone [facility] Neurology Clinic [address] [phone] Meche De La Cruz, GEMA Appointment (Follow-up 02/04/24 PHQ9) 02/06/2024 MyC Medical Advice [facility] [address] [place] [address] Denise Woodson Ra, APRN CNP H/O prolonged Q-T interval on ECG (Primary Dx) 02/06/2024 Travel 02/06/2024 8:30 AM CDT Office Visit [facility] [address] [place] [address] Denise Woodson Ra, APRN ABSENCE MANAGEMENT CONSULTANT Fibromuscular dysplasia (H24) (Primary Dx); Cerebrovascular accident (CVA), unspecified mechanism (H); TSH elevation 02/05/2024 Telephone [facility] Neurosurgery [address] [phone] Robin Zepeda MD 02/05/2024 Travel 02/04/2024 Travel 02/04/2024 1:45 PM CDT - 02/04/2024 7:21 PM CDT Emergency [facility] Emergency Department [address] [place] [phone] Jovita Vail MD Golz, Dustin Nickolas, DO Left sided numbness; Vision abnormalities; Coordination abnormal Discharge Disposition: Home or Self Care 02/04/2024 PRE VISIT [facility] Neurology Clinic [address] [phone] Raul Hoyos MD *-*INCOMING RECORDS*-* 02/04/2024 11:00 AM CDT Virtual Visit [facility] Neurology [address] [phone] Raul Hoyos MD Depression, unspecified depression type (Primary Dx); Seizure-like activity (H); History of seizure; Cerebrovascular accident (CVA), unspecified mechanism (H) 02/03/2024 MyC Medical Advice [address] [phone] Denise Woodson Ra, APRN ABSENCE MANAGEMENT CONSULTANT 02/03/2024 Travel 02/03/2024 8:45 AM CDT Therapy Visit [facility] Rehabilitation Services [address] [phone] Denise Woodson Ra, APRN ABSENCE MANAGEMENT CONSULTANT Addis Rojas PT Cerebrovascular accident (CVA), unspecified mechanism (H) (Primary Dx) 02/01/2024 Travel 01/31/2024 PRE VISIT [facility] Neurosurgery [address] [phone] Usha Simon APRN CNP *-*INCOMING RECORDS*-* 01/31/2024 9:30 AM CDT Office Visit [facility] Neurosurgery [address] [phone] Jeevan Sheth MD George, Seena Susan, APRN CNP Dural arteriovenous fistula 01/30/2024 Travel 01/30/2024 MyC Medical Advice [facility] Neurology [address] [phone] Stacey Kelley RN 01/30/2024 Telephone [facility]rology Clinic [address] [phone] Stacey Kelley, GEMA 01/30/2024 11:00 AM CDT Therapy Visit [address] [phone] Danya You, Aliya Luu OTR Activity of daily living alteration (Primary Dx); Cerebrovascular accident (CVA), unspecified mechanism (H); Alteration in instrumental activities of daily living (IADL) 01/29/2024 MyC Medical Advice [address] [phone] Danya Restrepo, WILL CALL ORDER CLERK 01/29/2024 9:30 AM CDT Therapy Visit [address] [phone] Danya You PA Morgan, Lindsay M, WILL CALL ORDER CLERK Cerebrovascular accident (CVA), unspecified mechanism (H) 01/28/2024 Travel 01/28/2024 1:15 PM CDT Therapy Visit [address] [phone] Danya You, Delicia Higgins, PT Cerebrovascular accident (CVA), unspecified mechanism (H) 01/27/2024 Travel 01/27/2024 Telephone [facility] [address] [phone] None 01/27/2024 MyC Medical Advice [facility] Neurology Clinic [address] [phone] Phoebe Del Cid 01/22/2024 2:38 PM CDT - 01/26/2024 12:31 PM CDT Hospital Encounter [facility] Acute [address] [phone] Parminder Del Angel MD Cerebrovascular accident (CVA), unspecified mechanism (H) (Primary Dx); Fibromyalgia; Pain of right upper extremity; Generalized anxiety disorder; History of seizure; Mild recurrent major depression (H24) Discharge Disposition: Home or Self Care 01/25/2024 Travel 01/23/2024 Telephone [facility] Neurology Clinic [place] [address] 3rd [place] [phone] None Appointment (Referral-Stroke hospital follow up) 01/23/2024 Orders Only [facility] [address] [place] [phone] Delisa Manuel MD Dural arteriovenous fistula (Primary Dx) 01/19/2024 11:16 PM CDT - 01/22/2024 2:19 PM CDT Hospital Encounter [facility] Med Surg [facility] [place] [phone] Luis Reynolds DO Choudhary, Kriti, MD Traxler, Matthew, MD Fibromyalgia (Primary Dx); Pain of right upper extremity; Nausea; Other constipation; Generalized anxiety disorder; History of stroke; Seizure-like activity (H); History of seizure; Cerebrovascular accident (CVA), unspecified mechanism (H); Dural arteriovenous fistula Discharge Disposition: Acute Rehab Facility 01/21/2024 8:30 AM CDT Ancillary Procedure [facility] [address] [facility] [place] [phone] Kev Ansari MD Choudhary, Kriti, MD 01/17/2024 1:09 PM CDT - 01/19/2024 10:07 PM CDT Hospital Encounter [facility] [place] 2[address] [phone] Parminder Del Angel MD Al Lawati, Zainab, [...] 750 mg by mouth 2 times daily 024 Discontinued magnesium oxide 200 MG TABS Take 200 mg by mouth at bedtime 024 Discontinued rosuvastatin (CRESTOR) 20 MG tablet Take 20 mg by mouth at bedtime 024 Discontinued acetaminophen (TYLENOL) 325 MG tabletIndications :Fibromyalgia,Tony [...] mouth nightly as needed for anxiety 4 024 Discontinued calcium carbonate (TUMS) 500 MG chewable [...] anxiety or other (sleep) 60 tablet 4 Discontinued levETIRAcetam (KEPPRA) 750 MG tabletIndications :History [...] Info) Description 02/26/2024 1:40 PM CDT Appointment [facility] [address] [facility] [address] [place] [phone] Denise Woodson Ra, PURCHASING BUYER ABSENCE MANAGEMENT CONSULTANT [address] [place] [address] 02/26/2024 2:15 PM CDT Therapy Visit [address] [phone] Danya You PA [address] [place], [place] [phone] Charis Chacon, JUAN [facility] [address] [place] [address] 02/26/2024 3:00 PM CDT Therapy Visit [address] [phone] Danya You PA [address] [place] [address] Isabel Beaulieu, OTR [facility] [place] [address] [facility] [place] [address] 02/27/2024 4:45 PM CDT Therapy Visit [facility] [address] [place] [phone] Danya You, PA [address] [address] Vanessa Duggan, PT 03/05/2024 1:30 PM CDT Therapy Visit [facility] [address] [place] [phone] Danya You, AMAIRANI [address] [address] Isabel Beaulieu, OTR [facility] [address] [place] [address] 03/05/2024 3:15 PM CDT [facility] [address] [place] [phone] Danya You, PA [address] [address] Charis Chacon SLP [facility] [address] [place] [address] 03/05/2024 4:15 PM CDT Therapy Visit [facility] [address] [place] [phone] Danya You, AMAIRANI [address] [address] Delicia George, PT [facility] [address] [place] [address] 03/11/2024 2:15 PM CDT Therapy Visit [address] [phone] Danya You, PA [address] [address] Isabel Beaulieu OTR [address] [address] 03/11/2024 3:00 PM CDT Therapy Visit [address] [phone] Danya You, PA [address] [address] Charis Chacon, JUAN [facility] [address] [place] [address] 03/11/2024 4:15 PM CDT Therapy Visit [address] [phone] Danya You, PA [address] [address] Delicia George, PT [facility] [address] [place] [address] 03/17/2024 10:00 AM CDT Office Visit [address] [place] [phone] Denise Woodson Ra, PURCHASING BUYER ABSENCE MANAGEMENT CONSULTANT [address] [place], [place] [phone] 03/17/2024 1:30 PM CDT Therapy Visit [address] [phone] Danya You, PA [address] [place] [address] Isabel Beaulieu OTR [address] [address] 03/17/2024 2:30 PM CDT Therapy Visit [address] [phone] Danya You, PA [address] [address] Charis Chacon, JUAN [facility] [address] [place] [address] 03/17/2024 4:00 PM CDT Therapy Visit [address] [phone] Danya You, PA [address] 864[address] Vanessa Duggan, PT 03/23/2024 10:30 AM CDT Office Visit [facility] [address] [place] [phone] Denise Woodson Ra, PURCHASING BUYER ABSENCE MANAGEMENT CONSULTANT [address] [place] [address] 03/26/2024 1:30 PM CDT Therapy Visit [address] [phone] Danya You, AMAIRANI [address] [place] [address] Isabel Beaulieu, OTR [address] [address] 03/26/2024 2:30 PM CDT Therapy Visit [address] [phone] Danya You, PA [address] [place] [address] Charis Chacon, JUAN [facility] [address] [place] [address] 03/26/2024 3:30 PM CDT Therapy Visit [address] [phone] Danya You, PA [address] [place] [address] Delicia George, PT [facility] [address] [place] [address] 04/02/2024 2:15 PM CDT Therapy Visit [address] [phone] Danya You, PA [address] [address] Isabel Beaulieu, OTR [address] [address] 04/02/2024 3:15 PM CDT Therapy Visit [address] [phone] Danya You, PA [address] [address] Charis Chacon, JUAN [facility] [address] [place] [address] 04/02/2024 4:15 PM CDT Therapy Visit [address] [phone] Danya You, PA [address] [address] Delicia George, PT [facility] [address] [address] 04/09/2024 3:15 PM CDT Therapy Visit [address] [phone] Danya You, PA [address] 5[address] Charis Chacon, JUAN [facility] [address] [place] [address] 04/09/2024 4:15 PM CDT Therapy Visit [address] [address] Danya You, PA [address] [place] [address] Delicia George, PT [facility] [address] [place] [address] 04/15/2024 9:30 AM CDT Therapy Visit [address] [phone] Danya You, PA [address] [address] Danya Restrepo, WILL CALL ORDER CLERK 04/23/2024 2:30 PM CDT Therapy Visit [address] [phone] Danya You, PA [address] [place] [address] [address] Charis Chacon, JUAN [facility] [address] [place] [address] 05/05/2024 2:30 PM CDT Office Visit [facility] Ep[facility]psy [facility] [address] [place] [phone] Rohit Barcenas MD [address] [facility] [address] [place] [address] 06/23/2024 11:00 AM CDT Virtual Visit [facility] & Addiction [facility] [address] [facility] [place] [phone] Kristin Vázquez, [facility] [address] [address] 06/30/2024 2:00 PM CDT Virtual Visit [facility] [address] [place] [phone] Kristin Vázquez, [facility] [address] [phone] Goals Goal Patient Goal Type Associated Problems Recent Progress Patient-Stated? Author I would like additional resources and support to manage my health and prevent future avoidable ED visits/hospital admissions Care Plan Increased risk of re-admission Anastasia Talamantes, RN Note: Barriers: diagnosis of multiple, chronic, complex medical conditions, provider availability - wait time to complete appointments, etc. Strengths: motivated, engaged in care coordination Patient expressed understanding of goal: yes Action steps to achieve this goal: 1. I will follow up with my providers as scheduled/recommended - Call mental [facility] # to inquire about sooner appointment (care [...] clinic with 24/7 after hours services available. Roller Coaster Operator will remain available as needed. Procedures Procedure [...] STAT 01/20/2024 6:53 PM CDT MRA BRAIN (POINT LAY [place] OF [place]) W/O CONTRAST STAT 01/20/2024 6:50 [...] BILATERAL W/ FLO Routine 07/30/2023 2:38 PM COACH OPERATOR LIPID REFLEX TO DIRECT LDL PANEL Routine 07/27/2021 8:57 AM COACH OPERATOR CARDIOVASCULAR SCREENING; LDL GOAL LESS THAN [...] a DVA. FRAN ROBBINS MD SYSTEM ID: ??[id number] Narrative 02/13/2024 3:14 PM CDT MR BRAIN [...] a DVA. FRAN ROBBINS MD SYSTEM ID: [id number] Dangelo Sylvester DO IMG MRI ORDERABL ES * EKG 12-lead, tracing only (02/13/2024 12:51 PM CDT) Only the most recent of3 resultswithin the time period is included. Systolic Blood Pressure mmHg RADIOLOGY RESULTS Diastolic Blood Pressure mmHg RADIOLOGY RESULTS Ventricular Rate 81 BPM RAD IOLOGY RESULTS Atrial Rate 81 BPM RADIOLOG Y RESULTS AK Interval 166 ms RADIOLOG Y RESULTS QRS Duration 84 ms RADIOLO GY RESULTS QT 358 ms RADIOLOGY RESULTS QTc 415 ms RADIOLOGY RESULTS P [place] 52 degrees RADIOLOGY RESULTS R AXIS 54 degrees RADIOLOGY RESULTS T [place] 15 degrees RADIOLOGY RESULTS Interpretation ECG Sinus rhythm with occasional Premature ventricular complexes Possible Left atrial enlargement Borderline ECG When compared with ECG of 04-FEB-2024 14:46, QT has shortened Unconfirmed report - interpretation of this ECG is computer generated - see medical record for final interpretation Confirmed by - EMERGENCY ROOM, PHYSICIAN ([id number]), book or script editor Jc Rouse ([id number]) on 02/13/2024 1:07:34 PM RADIOLOGY RESULTS 02/13/2024 [...] hours CDT. FRAN ROBBINS MD SYSTEM ID: ??[id number] Narrative 02/13/2024 12:49 PM CDT EXAM: CTA [...] of the upper aortic arch through the [place]. This CT angiogram data was [...] of the upper aortic arch through the [place]. This CT angiogram data was [...] hours CDT. FRAN ROBBINS MD SYSTEM ID: [id number] Dangelo Sylvester DO IMG CT ORDERABLE S * CT Head w/o Contrast (02/13/2024 12:28 PM CDT) Only the most recent of3 resultswithin the time period is included. Anatomical Region Laterality Modality Head, SUBRAD CT NEURO, SUBRA D CT NEURO, UMP CT NEURO, RAD CT Computed Tomography Impressions 02/13/2024 12:49 PM CDT IMPRESSION: No acute intracranial pathology. FRAN ROBBINS MD SYSTEM ID: ??[id number] Narrative 02/13/2024 12:49 PM CDT EXAM: CT HEAD W/O CONTRAST ??02/13/2024 12:28 PM HISTORY: ??Code Stroke to evaluate for potential thrombolysis and thrombectomy. PLEASE READ IMMEDIATELY. ?? COMPARISON: ??Brain MRI, Head CT and CTA 02/04/2024 TECHNIQUE: Using multidetector thin collimation helical acquisition technique, axial, coronal and sagittal CT images from the skull base to the vertex were obtained without intravenous contrast. Limnologist (topogram) image(s) also obtained and reviewed. Dose [...] the vertex were obtained without intravenous contrast. Limnologist (topogram) image(s) also obtained and reviewed. Dose [...] intracranial pathology. FRAN ROBBINS MD SYSTEM ID: [id number] Dangelo Sylvester DO IMG CT ORDERABLE S * Glucose by meter (02/13/2024 12:18 PM CDT) Only the most recent of2 resultswithin the time period is included. GLUCOSE BY METER POCT 95 70 - 99 mg/dL 02/13/2024 12:25 PM CDT [facility] LAB[facility]AT[facility] POC Blood, venous BLOOD SPECIMEN / Unknown 02/13/2024 12:18 PM CDT 02/13/2024 12:25 PM CDT Dangelo Sylvester LAB - BEAKER POC T [facility] LABORATORY POC [facility] Acute Care Lab [address] [facility] Lab (1st floor, no room number) [place] [address] * CBC with platelets and differential (02/13/2024 [...] Sylvester DO LAB - BLOOD LUNAE SUDEEP [facility] Organization Address City/State/ZIP Co de Phone Number [facility] LABORATORY [facility] Acute Care Lab [address] Lab (1st floor, no room number) [place] [address], [facility] * Troponin T, High Sensitivity (02/13/2024 12:16 PM CDT) Only the most recent of3 resultswithin the time period is included. Troponin T, High Sensitivity <6 <=14 ng/L [...] 12:16 PM CDT 02/13/2024 12:20 PM CDT Dangelotriny Sylvester LAB - BLOOD ORDE SUDEEP Performing Organization Address City/[facility]/ZIP Co de Phone Number [facility] Acute Care Lab [address] Lab (1st floor, no room number) [address] * INR (02/13/2024 12:16 PM CDT) Only the most recent of3 resultswithin the time period is included. Pathologist [facility] INR 0.94 0.85 - 1.15 02/13/2024 12:42 PM CDT [facility] LAB[facility] Blood BLOOD SPECIMEN / Unknown Venipuncture / Unknown 02/13/2024 12:16 PM CDT 02/13/2024 12:20 PM CDT Dangelo Tavares Sylvester LAB - BLOOD ORDE SUDEEP [facility] Acute Care Lab [address] [facility] (1st floor, no room number) [place] [phone] * Partial thromboplastin time (02/13/2024 12:16 PM CDT) Only the most recent of3 resultswithin the time period is included. Pathologist [facility] aPTT 26 22 - 38 Seconds 02/13/2024 12:42 PM CDT [facility] Blood BLOOD SPECIMEN / Unknown Venipuncture / Unknown 02/13/2024 12:16 PM CDT 02/13/2024 12:20 PM CDT Dangelo Chapin [facility] LAB - BLOOD ORDE SUDEEP Performing Organization Address City/[facility]/ZIP Co de Phone Number LABORATORY [facility] Lab [address] (1st floor, no room number) [place] [phone] [place] [address] * hCG Qualitative (02/13/2024 12:16 PM CDT) Only the most recent of2 resultswithin the time period is included. [facility] hCG Serum Qualitative Negative Negative PRATEEK 02/13/2024 12:49 PM CDT [facility] LAB[facility] Comment:This test is for scr eening purposes. Results should be interpreted along with the clinical picture. Confirmation testing is available if warranted by ordering [id number], HCG Quantitative . Blood BLOOD SPECIMEN / Unknown Venipuncture / Unknown 02/13/2024 12:16 PM CDT 02/13/2024 12:20 PM CDT Dangelo Sylvester LAB - BLOOD ORDE SUDEEP Performing Organization Address City/[facility]/ZIP Co de Phone Number LABORATORY [facility] Acute Care Lab [address] Lab (1st floor, no room number) [place] [address] * Basic metabolic panel (02/13/2024 12:16 PM CDT) Only the most recent of5 resultswithin the time period is included. [facility] Sodium 140 135 - 145 mmol/L 02/13/2024 12:40 PM CDT [facility] LAB[facility] Comment:Reference intervals for this test were [...] >60 mL/min/1. 73m2 02/13/2024 12:40 PM CDT LABORATORY Calcium 9.6 8.6 - 10.0 mg/dL 02/13/2024 12:40 PM CDT LABORATORY Glucose 97 70 - 99 mg/dL 02/13/2024 12:40 PM CDT LABORATORY Blood BLOOD SPECIMEN / Unknown Venipuncture / Unknown 02/13/2024 12:16 PM CDT 02/13/2024 12:20 PM CDT Dangelo Sylvester DO LAB - BLOOD LUNAE SUDEEP [facility] Organization Address City/State/ZIP Co de Phone Number LABORATORY [facility] Acute Care Lab [address] [facility] Lab (1st floor, no room number) [place] [address], [facility] * MR Brain w/o & w Contrast [...] hemorrhage. MARLO CAIN MD Jovita Vail MD [facility] MRI ORDERABLES * CT Head Perfusion w [...] ??Images were reconstructed and reviewed on the [employer] 3D workstation. HEAD and NECK CTA: Thereafter, postcontrast images were obtained from the aortic arch through the [place]. ??Axial images were obtained using thin collimation multidetector helical technique. This CT angiogram data was reconstructed at thin intervals with mild overlap. Images were sent to the [employer] workstation, and 3D reconstructions and multiplanar reformations were obtained with reconstructions performed by the technologist and the radiologist. The source images, multiplanar reformations, 3D reconstructions in both maximum intensity projection display and volume rendered models were reviewed, Contrast: 67cc of isovue 370 (accession [id number]), 50cc of isovue 370 (accession [id number]) Findings: CT Perfusion: Images documenting relative cerebral [...] Images were reconstructed and reviewed on the [employer] 3D workstation. HEAD and NECK CTA: Thereafter, postcontrast images were obtained from the aortic arch through the [place]. Axial images were obtained using thin collimation multidetector helical technique. This CT angiogram data was reconstructed at thin intervals with mild overlap. Images were sent to the [employer] workstation, and 3D reconstructions and multiplanar reformations were obtained with reconstructions performed by the technologist and the radiologist. The source images, multiplanar reformations, 3D reconstructions in both maximum intensity projection display and volume rendered models were reviewed, Contrast: 67cc of isovue 370 (accession [id number]), 50cc of isovue 370 (accession [id number]) Findings: CT Perfusion: Images documenting relative cerebral [...] findings. MARLO CAIN MD Jovita Vail MD [facility] [place] ORDERABLES * Creatinine POCT (02/04/2024 1:51 PM CDT) Creatinine POCT 0.9 0.5 - 1.0 mg/dL 02/04/2024 5:57 PM CDT [facility] POC GFR, ESTIMATED POCT >60 >60 mL/min/1.7 3m2 02/04/2024 5:57 PM CDT [facility] LABORAT[facility] POC Blood, venous BLOOD SPECIMEN / Unknown 02/04/2024 1:51 PM CDT 02/04/2024 5:57 PM CDT Jovita Vail MD LAB - BEAKER POCT [facility] LABORATORY POC [facility] [place] [facility] 500 [facility], Room [address] * Extra Purple Top Tube (02/04/2024 1:49 PM CDT) Only the most recent of2 resultswithin the time period is included. Hold Specimen [facility] 02/04/2024 3:16 PM CDT [facility] LAB[facility]AT[facility] Blood VENOUS LINE / Unknown Venipuncture / Unknown 02/04/2024 1:49 PM CDT 02/04/2024 2:03 PM CDT Jovita Vail MD LAB - BLOOD ORDERABL ES LABORATORY [facility] [place] [facility] 500 [facility], Room [address] * Extra Green Top (Rodney Heparin) Tube (02/04/2024 1:49 PM CDT) Only the most recent of2 resultswithin the time period is included. Hold Specimen [facility] 02/04/2024 3:16 PM CDT U LABORATORY Blood VENOUS LINE / Unknown Venipuncture / Unknown 02/04/2024 1:49 PM CDT 02/04/2024 2:02 PM CDT Jovita Vail MD LAB - BLOOD ORDERABL ES LABORATORY [facility] [place] [facility] 500 [facility], Room [address] [phone] * Extra Red Top Tube (02/04/2024 1:49 PM CDT) Hold Specimen [facility] 02/04/2024 3:16 PM CDT U LABORATORY Blood VENOUS LINE / Unknown Venipuncture / Unknown 02/04/2024 1:49 PM CDT 02/04/2024 2:02 PM CDT Jovita Vail MD LAB - BLOOD ORDERABL ES LABORATORY [facility] [place] [facility] 500 [facility], Room [address] [place] [phone] * Extra Blue Top Tube (02/04/2024 1:49 PM CDT) Hold Specimen [facility] 02/04/2024 3:16 PM CDT U LABORATORY Blood VENOUS LINE / Unknown Venipuncture / Unknown 02/04/2024 1:49 PM CDT 02/04/2024 2:03 PM CDT Jovita Vail MD LAB - BLOOD ORDERABL ES LABORATORY [facility] [place] [facility] 500 [facility], Room [address] [address] * Lupus Anticoagulant Panel (01/21/2024 1:20 PM [...] of an antiphospholipid syndrome, recommend anticardiolipin and fcbr-7-jvtqyrjnnzc n (IgG and IgM) antibody tests. Mikayla Cooper MD, PhD [facility] 4 2:25 PM CDT [facility] SPECIAL COAGULATION Blood STRUCTURE OF RIGHT HAND / Unknown Venipuncture / Unknown 01/21/2024 1:20 PM CDT 01/21/2024 1:26 PM CDT Airam Jay MD LAB - BLOOD ORDERABL ES Performing Organization Address City/[facility] Co de Phone Number UM SPECIAL COAGULATION UM Special Coagulation 500 [facility], Room [address] [address] * Factor 2 assay (01/21/2024 1:20 PM CDT) Factor 2 Assay 131 60 - 140 % 01/22/2024 9:53 AM CDT SPECIAL COAGULATION Comment: The Factor 2 activity level is not a screening test for the Prothrombin 34552 mutation. Blood STRUCTURE OF RIGHT HAND / Unknown Venipuncture / Unknown 01/21/2024 1:20 PM CDT 01/21/2024 1:26 PM CDT Airam Jay MD LAB - BLOOD ORDERABL ES Performing Organization Address City/[facility] Co de Phone Number SPECIAL COAGULATION UM Special Coagulation [address] [facility], Room [address] [address], [facility] * EEG Video 2-12 HRS [facility] (01/21/2024 12:15 PM CDT) Narrative [facility] - 01/21/2024 3:06 PM CDT EEG Video 2-12 HRS [facility] Result VIDEO EEG DATE: 01/21/2024 VIDEO EEG LO60 VIDEO EEG DAY#: 1 VIDEO EEG SOURCE [...] STAFF Airam Jay MD IMG EEG ORDERABLES Performing Organization Address [facility]/ZIP Co de Phone Number [id number] * Cardiolipin Fariba IgG and IgM (01/21/2024 [...] - BLOOD ORDERABL ES Performing Organization Address [facility]/ZIP Co de Phone Number SPECIALTY CORE/PROT/ENDO Specialty Core/Prot/Endo 500 [facility] [address] Building, Room [address] * MRA Neck (Carotids) wo & [...] Airam Jay MD IMG MRI ORDERABLES * MRA Brain ([place]) wo Contrast (01/20/2024 6:50 PM CDT) Anatomical Region Laterality Modality Head, SUBRAD MR NEURO, UMP MR NEURO, RAD MR Magnetic Resonance Impressions 01/20/2024 7:49 PM CDT IMPRESSION: No intracranial arterial aneurysm or stenosis. I have personally reviewed the examination and initial interpretation and I agree with the findings. 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 Outside CTA report for 01/09/2024 obtained through Care Everywhere. 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 Outside CTA report for 01/09/2024 obtained through Care Everywhere. TECHNIQUE: Using a 3D ziqe-yj-sfbano image acquisition technique, MRA of the major [...] findings. ANA LATHAM MD Airam Jay MD [facility] [place] ORDERABLES * Lactic acid whole blood (01/19/2024 11:55 PM CDT) Lactic Acid 1.1 0.7 - 2.0 mmol/L 01/20/2024 12:03 AM CDT UR LABORATORY Blood STRUCTURE OF RIGHT UPPER LIMB / Unknown Venipuncture / Unknown 01/19/2024 11:55 PM CDT 01/20/2024 12:01 AM CDT Len Camejo DO LAB - BLOOD ORDERABLES UR LABORATORY [facility] Acute Care Lab 24[address] [facility], Room [address] [place] [address], [facility] * Prolactin (01/19/2024 9:33 PM CDT) Prolactin 22 5 - 23 ng/mL 01/19/2024 11:23 PM CDT UU LABORATORY Blood BLOOD SPECIMEN / Unknown Venipuncture / Unknown 01/19/2024 9:33 PM CDT 01/19/2024 9:54 PM CDT Randy Kwon APRN, CNP LAB - BLOOD ORDER NASRIN UU LABORATORY [facility] [place] [facility] 500 [facility], Room 3-580 [place] [address], [facility] * Fibrinogen activity (01/19/2024 9:33 PM CDT) Fibrinogen Activity 417 170 - 490 mg/dL 01/19/2024 10:18 PM CDT UR LABORATORY Blood BLOOD SPECIMEN / Unknown Venipuncture / Unknown 01/19/2024 9:33 PM CDT 01/19/2024 9:54 PM CDT Randy Kwon APRN, CNP LAB - BLOOD ORDER NASRIN UR LABORATORY [facility] Acute Care Lab [address] [place] [address], Room [address] [address], [facility] * Platelet count - Routine (01/18/2024 5:40 AM CDT) Platelet Count 217 150 - 450 10e3/uL 01/18/2024 6:15 AM CDT UR LABORATORY Blood STRUCTURE OF RIGHT UPPER LIMB / Unknown Venipuncture / Unknown 01/18/2024 5:40 AM CDT 01/18/2024 6:13 AM CDT Parminder Del Angel MD LAB - BLOOD ORDERABL ES UR LABORATORY [facility] Acute Care Lab [facility], Room [address] [address], [place] * Lab Result - HIM Scan (01/15/2024 12:00 AM CDT) 01/15/2024 Provider Outside NON-BEAKER LAB TE STING * MRI Imaging - HIM Scan (01/13/2024 12:00 AM CDT) Anatomical Region Laterality Modality Other 01/13/2024 Provider Outside IM MRI ORDERABLES * US Imaging - HIM Scan (01/12/2024 12:00 AM CDT) Anatomical Region Laterality Modality Other 01/12/2024 Provider Outside [facility] [place] ORDERABLES * CT Imaging - HIM Scan (01/07/2024 12:00 AM CDT) Only the most recent of2 resultswithin the time period is included. Anatomical Region Laterality Modality Computed Tomogra phy 01/07/2024 Provider Outside [facility] ORDERABLES * CT Vascular - HIM Scan (01/04/2024 12:00 AM CDT) Only the most recent of2 resultswithin the time period is included. Anatomical Region Laterality Modality Computed Tomogra phy 01/04/[address] ORDERABLES * (ABNORMAL) Lipid panel reflex to direct LDL Fasting (07/27/2021 8:57 AM COACH OPERATOR) Cholesterol 202(H) <200 mg/dL 07/28/2021 10:12 AM COACH OPERATOR [facility] LAB[facility]ATORY Triglycerides 91 <150 mg/dL 07/28/2021 10:12 AM COACH OPERATOR [facility] LAB[facility]ATORY Direct Measure HDL 56 >=50 mg/dL 07/28/2021 10:12 AM COACH OPERATOR [facility] LAB[facility]ATORY LDL Cholesterol Calculated 128(H) <=100 mg/dL 07/28/2021 10:12 AM COACH OPERATOR [facility] Non HDL Cholesterol 146(H) <130 mg/dL 07/28/2021 10:12 AM COACH OPERATOR OX LABORATORY Patient Fasting > 8hrs? Yes 07/28/2021 10:12 AM COACH OPERATOR [facility] LAB[facility]ATORY Blood STRUCTURE OF RIGHT UPPER LIMB / Unknown Venipuncture / Unknown 07/27/2021 8:57 AM COACH OPERATOR 07/27/2021 8:57 AM COACH OPERATOR Narrative OX LABORATORY - 07/28/2021 10:12 AM COACH OPERATOR Cholesterol Desirable: ??<200 mg/dL Triglycerides Normal: [...] equal to 220 mg/dL Denise Woodson APRN ABSENCE MANAGEMENT CONSULTANT LAB - BLOOD ORDERABLES OX LABORATORY [facility] Lab [address] Lab (no room number, 1st floor of clinic) [place] [address], [facility] [phone] from Last 3 Months or Most Recently Relevant to Health Maintenance Additional Health Concerns Active Problems Noted Date Diagnosed Date Increased risk of re-admission 02/18/2024 Advance Directives For more information, please contact: [phone] * Full Code (Latest Code Status on [...] patie nt/ legal decision maker Care Teams Batch Analyst Relationship Specialty Start Date End Date Winston Villatoro OD [facility] [place] [address] [place] [address] PCP - Ophthalmology Ophthalmology 02/11/13 Denise Woodson Ra, APRN ABSENCE MANAGEMENT CONSULTANT [address] [place] [address] PCP - General Family Practice 09/21/20 Denise Woodson Ra, APRN ABSENCE MANAGEMENT CONSULTANT [address] [place] [address] Assigned PCP 07/17/20 Usha Simon APRN ABSENCE MANAGEMENT CONSULTANT [address] [address] Nurse Practitioner Neurological Surgery 01/24/24 Dangelo Salinas MD [address] [place], [place] [id number] Neurology 01/27/24 Usha Simon APRN ABSENCE MANAGEMENT CONSULTANT [address] [id number] Assigned Neuroscience Provider 02/06/24 Anastasia Stearns, RN Lead Roller Coaster Operator 02/06/24 Germaine Lopez, W Community Health Worker Primary Care - CC 02/18/24
--- OUTSIDE RECORDS SUMMARY | 2024-02-22 15:20 | XMS_ITS | Encounter Summary ---
Author Organization [place] Address [address] [place] [address] Care Team Providers Care Varitypist Name Role Phone ShaunaWinston OD Unavailable [phone] Denise Woodson Ra, APRN [employer] G[employer] Unavailable [phone] Denise Woodson Ra, APRN [employer] Primary Care Provid er Usha Simon APRN [employer] Unavailable [phone] Dangelo Salinas MD Unavailable Usha Simon APRN [employer] Unavailable [phone] Anastasia Stearns RN Unavailable [phone] Encounter Details Date Type Department Care Team (Latest Contact Info) Description 02/17/2024 Travel Social History Tobacco Use Types Packs/Day [...] Info) Description 02/26/2024 1:40 PM CDT Appointment [facility] Imaging [address] [place] [address] [place] [phone] Denise Woodson Ra, WARPER CREELER [employer] [address] [facility] [address] 02/26/2024 2:15 PM CDT Therapy Visit [address] [phone] Danya You, AMAIRANI SOTO [address] [place] [address]374 Charis Chacon, JUAN [facility] [address] [place] [address] 02/26/2024 3:00 PM CDT Therapy Visit [address] [phone] Danya You, [place] 245Darren SOTO [address] [place] [address] Isabel Beaulieu OTR [address] [address] 02/27/2024 4:45 PM CDT Therapy Visit [address] [phone] Danya oYu, PA [address] [place] [address] Vanessa Duggan, PT 03/05/2024 1:30 PM CDT Therapy Visit [address] [phone] Danya You, PA [address] [address] Isabel Beaulieu, OTR [address] [address] 03/05/2024 3:15 PM CDT Therapy Visit [address] [phone] Danya You, PA [address] [address] Charis Chacon, BLOCK PLACER [facility] [address] [place] [address] 03/05/2024 4:15 PM CDT Therapy Visit [address] [phone] Danya You, PA [address] [address] Delicia George, PT [facility] [address] [place] [address] 03/11/2024 2:15 PM CDT Therapy Visit [address] [phone] Danya You, PA [address] 871524 Isabel Beaulieu, OTR [address] [address] 03/11/2024 3:00 PM CDT Therapy Visit [address] [phone] Danya You, PA [address] [address] Charis Chacon, BLOCK PLACER [facility] [address] [place] [address] 03/11/2024 4:15 PM CDT Therapy Visit [address] [phone] Danya You, PA [address] 8400[address] Delicia George, PT [facility] [address] [place] [address] 03/17/2024 10:00 AM CDT Office Visit [facility] [address] [place] [address] Denise Woodson Ra, WARPER CREELER [facility] [address] [place], [place] [id number] 03/17/2024 1:30 PM CDT Therapy Visit [address] [phone] Danya You, PA [address] 800314 Isabel Beaulieu, OTR [facility] [address] [place] [address] 03/17/2024 2:30 PM CDT [facility] [address] [place] [phone] Danya You, AMAIRANI [address] 265[address] Charis Chacon, JUAN [facility] [address] [place] [address] 03/17/2024 4:00 PM CDT Therapy Visit [address] [phone] Danya You, PA 2450 [facility] [address] [address]27[address] Vanessa Duggan, PT 03/23/2024 10:30 AM CDT Office Visit [facility] [address] [place] [phone] Denise Woodson Ra, WARPER CREELER [employer] [address] [place], [place] [phone] 03/26/2024 1:30 PM CDT [facility] [address] [place] [phone] Danya You, PA 2450 [facility] [address] [address] Isabel Beaulieu, OTR [facility] [address] [place] [address] 03/26/2024 2:30 PM CDT Therapy Visit [address] [phone] Danya You, AMAIRANI [facility] [address] [address] Charis Chacon SLP [facility] [address] [place] [address] 03/26/2024 3:30 PM CDT Therapy Visit [address] [phone] Danya You, PA [address] [place] [address] Delicia George, PT [facility] [address] [place] [address] 04/02/2024 2:15 PM CDT Therapy Visit [address] [phone] Danya You, PA [address] [place] [address] Isabel Beaulieu, OTR [address] [address] 04/02/2024 3:15 PM CDT Therapy Visit [address] [phone] Danya You PA [address] [place], [place] [address] [address] [address] Charis Chacon, JUAN [facility] [address] [place] [address] 04/02/2024 4:15 PM CDT Therapy Visit [address] [phone] Danya You, AMAIRANI [address] [address] Delicia George, PT [address] 886185 04/09/2024 3:15 PM CDT Therapy Visit [address] [phone] Danya You, AMAIRANI [address] [address] Charis Chacon, J[facility]AN [facility] [address] [place] [address] 04/09/2024 4:15 PM CDT Therapy Visit [address] [phone] Danya You, AMAIRANI [facility] [address] [address] Delicia George, PT [address] 052185 04/15/2024 9:30 AM CDT Therapy Visit [address] [phone] Danya You PA [address] [place] [address] Danya Restrepo SLP 04/23/2024 2:30 PM CDT Therapy Visit [facility] [address] [place] [phone] Danya You PA [address] [place] [address] Charis Chacon, JUAN [facility] [address] [place] [address] 05/05/2024 2:30 PM CDT Office Visit [facility] [address], [address] [place] [phone] Rohit Barcenas MD [address] [place] [address] 295 [place] [address] 06/23/2024 11:00 AM CDT Virtual Visit [facility] Mental Health & [facility] [address] [place] [phone] Kristin Vázquez, [facility] [address] [place] [phone] 06/30/2024 2:00 PM CDT Virtual Visit [facility] [place] [facility] [address] [place] [phone] Kristin Vázquez, [facility] [address] [place] [phone] documented as of this encounter Visit Diagnoses Not on filedocumented in this encounter Additional Health Concerns Assessment Noted Time PHQ-9 Depression Total Score: 16 024 3:27 PM CDT documented as of this encounter Care Teams Varitypist Relationship Specialty Start Date End Date Winston Villatoro OD [facility] [place] [address] [place] [address] PCP - Ophthalmology Ophthalmology 02/11/13 Denise Woodson Ra, APRN [employer] G[employer] [address] [place] [address] PCP - General Family Practice 09/21/20 Denise Woodson Ra, APRN [employer] [address] [place] [address] Assigned PCP 07/17/20 Usha Simon APRN [employer] [address] [place] [address] Nurse Practitioner Neurological Surgery 01/24/24 Dangelo Salinas MD [address] [facility] [address] [place] [address] Neurology 01/27/24 Usha Simon APRN [employer] [address] [place] [address] Assigned Neuroscience Provider 02/06/24 Anastasia Stearns, RN Lead Wort Extractor 02/06/24 documented as of this encounter
--- OUTSIDE RECORDS SUMMARY | 2024-02-22 15:20 | XMS_ITS | Encounter Summary ---
Author Organization [place] Address [address] [place] [address]. [place] [address] Care Team Providers Care Insurance Defense Paralegal Name Role Phone Winston Villatoro OD Unavailable [phone] Denise Woodson Ra, APRN EXPERIENCED TRUCK DRIVER Unavailable [phone]- [phone] Denise Woodson Ra FORGE SHOP MACHINE REPAIRER EXPERIENCED TRUCK DRIVER Primary Care Provid er Usha Simon APRN EXPERIENCED TRUCK DRIVER Unavailable [phone] Dangelo Salinas MD Unavailable Usha Simon APRN EXPERIENCED TRUCK DRIVER Unavailable [phone]- [phone] Anastasia Stearns RN Unavailable [phone] Reason for Visit * Rehab Therapy Integrated Services (Routine) - Authorized Specialty Diagnoses / Procedures Referred By Contac t Referred To Contact Diagnoses Cerebrovascular accident (CVA), unspecified mechanism (H) [address] [address] Referral ID Status Reason Start Date Expiration Date V isits Requested Visits Authorized [id number] Authorized 09/16/2023 09/15/2024 365 365 Encounter Details Date Type Department Care Team (Latest Contact Info) Description 02/17/2024 2:45 PM CDT Therapy Visit [address] [phone] Danya You, AMAIRANI [address] [place] [address] Aliya Kim, SHOVEL LOG LOADER OPERATOR [address] [facility], [address] [place] [address] Cerebrovascular accident (CVA), unspecified mechanism (H) (Primary Dx); Cognitive communication deficit Social History Tobacco Use Types Packs/Day Years [...] Info) Description 02/26/2024 1:40 PM CDT Appointment [facility] [place] [facility] [address] [facility] [address] [place] [phone] Denise Woodson Ra, FORGE SHOP MACHINE REPAIRER EXPERIENCED TRUCK DRIVER [address] [facility] [place] [address] 02/26/2024 2:15 PM CDT Therapy Visit [facility] [address] [phone] Danya You, PA 1026 [facility] 213 [place], [place] 454384 Charis Chacon, SHOVEL LOG LOADER OPERATOR [facility] [address] [place] [address] 02/26/2024 3:00 PM CDT Therapy Visit [facility] 150 [place] [address] Danya You, PA [address] [place] [address] Isabel Beaulieu, OTR [facility] 150 [place] [address] 02/27/2024 4:45 PM CDT Therapy Visit [facility] 150 [place] [phone] Danya You, PA [address] 982784 Vanessa Duggan, PT 03/05/2024 1:30 PM CDT Therapy Visit [address] [phone] Danya You, PA [address] [place] [address] Isabel Beaulieu, OTR [facility] 150 [place] [address] 03/05/2024 3:15 PM CDT Therapy Visit [address] [phone] Danya You, PA [address] 213 [place] [address] Charis Chacon, J[facility]AN [facility] [address] [place] [address] 03/05/2024 4:15 PM CDT Therapy Visit [facility] 150 [place] [address] Danya You PA [address] [place] [address] Delicia George, PT [facility] [address] [address] 03/11/2024 2:15 PM CDT Therapy Visit [address] [phone] Danya You, PA [address] [place] [address] Isabel Beaulieu OTR [address] [address] 03/11/2024 3:00 PM CDT Therapy Visit [address] [address] Danya You, PA [address] CHAR[place] [address] [place] [address] Charis Chacon, [facility] [address] [place] [address] 03/11/2024 4:15 PM CDT Therapy Visit [address] [address] Danya You, PA [address] [place] [address] Delicia George, PT [facility] [address] [place] [address] 03/17/2024 10:00 AM CDT Office Visit [facility] [address] [place] [phone] Denise Woodson Ra, FORGE SHOP MACHINE REPAIRER EXPERIENCED TRUCK DRIVER [address] [place], [place] 1708868 03/17/2024 1:30 PM CDT Therapy Visit [address] [phone] Danya You, AMAIRANI Muller[address] [place] [address] Isabel Beaulieu, OT[address] [address] 03/17/2024 2:30 PM CDT Therapy Visit [address] [phone] Danya You, PA [address] [place] [address] Charis Chacon, [facility] [address] [place] [address] 03/17/2024 4:00 PM CDT Therapy Visit [address] [phone] Danya You, PA [address] [place] [address] Vanessa Duggan, PT 03/23/2024 10:30 AM CDT Office Visit [facility] [address] [place] [phone] Denise Woodson Ra, FORGE SHOP MACHINE REPAIRER EXPERIENCED TRUCK DRIVER [address] [place], [place] [address] 03/26/2024 1:30 PM CDT Therapy Visit [address] [phone] Danya You, AMAIRANI [facility] [address] [address] Isabel Beaulieu, JAIMIE [address] [address] 03/26/2024 2:30 PM CDT Therapy Visit [address] [phone] Danya You, PA [facility] [address] 914024 Charis Chacon, [facility] [address] [place] [address] 03/26/2024 3:30 PM CDT Therapy Visit [address] [phone] Danya You, PA [address] [address] Delicia George, PT [facility] [address] [address] 04/02/2024 2:15 PM CDT Therapy Visit [address] [phone] Danya You, PA [address] [place] [address] Isabel Beaulieu, OTR [address] [address] 04/02/2024 3:15 PM CDT Therapy Visit [address] [phone] Danya You, PA [address] [place] [address] Charis Chacon, [facility] [address] [place] [address] 04/02/2024 4:15 PM CDT Therapy Visit [address] [phone] Danya You, PA [address] [place] [address] Delicia George, PT [facility] [address] [place] [address] 04/09/2024 3:15 PM CDT Therapy Visit [address] [phone] Danya You, PA [address] [place] [address] Charis Chacon, [facility] [address] [place] [address] 04/09/2024 4:15 PM CDT Therapy Visit [address] [address] Danya You, PA [address] [place] [address] Delicia George, PT [address] [address] 04/15/2024 9:30 AM CDT Therapy Visit [address] [address] Danya You, PA [address] [address] Danya Restrepo SLP 04/23/2024 2:30 PM CDT Therapy Visit [address] [phone] Danya You, PA [address] [place] [address] Charis Chacon, JUAN [facility] [address] [place] [address] 05/05/2024 2:30 PM CDT Office Visit [facility] Epilepsy [facility] [address], [address] [place] [address] Rohit Barcenas MD [address] [place] [address] 295 [place] [address] 06/23/2024 11:00 AM CDT Virtual Visit [facility] [address] [facility] [place] [address] Kristin Vázquez, [facility] 6366 [facility] JAREDFORMERLY [facility] [place] [address] 06/30/2024 2:00 PM CDT Virtual Visit [facility] [address] [facility] [place] [address] Kristin Vázquez, [facility] 6[address] [facility] [place] [address] documented as of this encounter Visit Diagnoses Diagnosis Cerebrovascular accident (CVA), unspecified mechanism (H)- Primary Cognitive communication deficit documented in this encounter Additional Health Concerns Assessment Noted Time PHQ-9 Depression Total Score: 16 024 3:27 PM CDT documented as of this encounter Care Teams Insurance Defense Paralegal Relationship Specialty Start Date End Date Winston Villatoro OD [facility] [place] [address] [place] [address] PCP - Ophthalmology Ophthalmology 02/11/13 Denise Woodson Ra, APRN EXPERIENCED TRUCK DRIVER [address] [address] [address] PCP - General Family Practice 09/21/20 Denise Woodson Ra, APRN EXPERIENCED TRUCK DRIVER [address] [address] [address] Assigned PCP 07/17/20 Usha Simon APRN EXPERIENCED TRUCK DRIVER [address] [place] [address] Nurse Practitioner Neurological Surgery 01/24/24 Dangelo Salinas MD [address] [place] [address] Neurology 01/27/24 Usha Simon APRN EXPERIENCED TRUCK DRIVER [address] [place] [place] [address] Assigned Neuroscience Provider 02/06/24 Anastasia Stearns, RN Lead Mold Chipper 02/06/24 documented as of this encounter
--- OUTSIDE RECORDS SUMMARY | 2024-02-22 15:20 | XMS_ITS | Encounter Summary ---
Author Organization [place] Address [address] [place] [address] Care Team Providers Care Stone Rubber Name Role Phone Winston Villatoro OD Unavailable [phone] Denise Woodson Ra, APRN CERTIFIED FIRE INVESTIGATOR Unavailable [phone] Denise Woodson Ra, APRN CERTIFIED FIRE INVESTIGATOR Primary Care Provid er Usha Simon APRN CERTIFIED FIRE INVESTIGATOR Unavailable [phone] Dangelo Salinas MD Unavailable Usha Simon APRN CERTIFIED FIRE INVESTIGATOR Unavailable [phone] Anastasia Stearns RN Unavailable [phone] Germaine Lopez CHW Unavailable [phone] Encounter Details Date Type Department Care Team (Latest Contact Info) Description 02/19/2024 Travel Social History Tobacco Use Types Packs/Day [...] Info) Description 02/26/2024 1:40 PM CDT Appointment [facility] [address] [place] [phone] Denise Woodson Ra, HEALTH EDUCATION COORDINATOR CERTIFIED FIRE INVESTIGATOR [address] [place] [address] 02/26/2024 2:15 PM CDT Therapy Visit [address] [phone] Danya You, AMAIRANI SOTO [address] [place] [address] Charis Chacon, J[facility]AN [facility] [address] [place] [address] 02/26/2024 3:00 PM CDT Therapy Visit [address] [phone] Danya You, PA Clarence SOTO [address] [place] [address] Isabel Beaulieu, [facility] 150 [place] [address] 02/27/2024 4:45 PM CDT Therapy Visit [facility] 150 [place] [phone] Danya You PA [address] MB [address] [place] [address] Vanessa Duggan, PT 03/05/2024 1:30 PM CDT Therapy Visit [address] [phone] Danya You, PA [address] [place] [address] Isabel Beaulieu, OTR [address] [address] 03/05/2024 3:15 PM CDT Therapy Visit [address] [phone] Danya You, AMAIRANI [address] [place] [address] Charis Chacon, NEW ACCOUNTS BANKING REPRESENTATIVE [facility] [address] [place] [address] 03/05/2024 4:15 PM CDT Therapy Visit [address] [phone] Danya You, PA 2450 [facility] [address] [place] [address] Delicia George, PT [facility] [place] [address] [place] [address] 03/11/2024 2:15 PM CDT Therapy Visit [address] [phone] Danya You, PA [address] [address] Isabel Beaulieu, OTR [address] [address] 03/11/2024 3:00 PM CDT Therapy Visit [address] [phone] Danya You, PA [facility] [address] [address] Charis Chacon, J[facility]AN [facility] [address] [place] [address] 03/11/2024 4:15 PM CDT Therapy Visit [address] [phone] Danya You, PA [address] [place] [address] Delicia George, PT [facility] [address] [place] [address] 03/17/2024 10:00 AM CDT Office Visit [facility] [address] [place] [address] Denise Woodson Ra, HEALTH EDUCATION COORDINATOR [facility] [address] [place] [address] 03/17/2024 1:30 PM CDT Therapy Visit [address] [phone] [place] [address] [address] Isabel Beauleiu, OTR [facility] [address] [address] 03/17/2024 2:30 PM CDT Therapy Visit [address] [phone] Danya You, PA 2450 [facility] 213 [place] [address] Charis Chacon, [facility] [place] [address] 03/17/2024 4:00 PM CDT Therapy Visit [address] [phone] Danya You, PA [address] 763084 Vanessa Duggan, PT 03/23/2024 10:30 AM CDT Office Visit [facility] [address] [place] [address] Denise Woodson Ra, HEALTH EDUCATION COORDINATOR [facility] [address] [place] [address] 03/26/2024 1:30 PM CDT Therapy Visit [address] [phone] Danya You, PA [address] [address] Isabel Beaulieu OTR [address] [place] [address] 03/26/2024 2:30 PM CDT Therapy Visit [facility] [address] [place] [phone] Danya You, AMAIRANI [address] [place] [address] Charis Chacon, NEW ACCOUNTS BANKING REPRESENTATIVE [facility] [address] [place] [address] 03/26/2024 3:30 PM CDT Therapy Visit [address] [address] Danya You, PA [address] [place] [address] Delicia George, PT [facility] [address] [place] [address] 04/02/2024 2:15 PM CDT Therapy Visit [address] [phone] Danya You, PA [address] [place] [address] Isabel Beaulieu, [facility] [address] [place] [address] 04/02/2024 3:15 PM CDT Therapy Visit [facility] [address] [place] [address] Danya You, PA [address] [place] [address] Charis Chacon, J[facility]AN [facility] [address] [place] [address] 04/02/2024 4:15 PM CDT Therapy Visit [address] [address] Danya You PA [address] [address] Delicia George, PT [address] [address] 04/09/2024 3:15 PM CDT Therapy Visit [address] [address] Danya You PA [address] [address] Charis Chacon, J[facility]AN [facility] [address] [place] [address] 04/09/2024 4:15 PM CDT Therapy Visit [address] [address] Danya You PA [address] [address] Delicia George, PT [address] [address] 04/15/2024 9:30 AM CDT Therapy Visit [address] [place] [address] Danya You, PA [address] [place] [address] [place] [address] Danya Restrepo SLP 04/23/2024 2:30 PM CDT Therapy Visit [facility] [address] [place] [address] Danya You, PA [address] [place] [address] [place] [address] Charis Chacon, [facility] [address] [place] [address] 05/05/2024 2:30 PM CDT Office Visit [facility] Epile[facility] [address], [address] [place] [address] Rohit Barcenas MD 420 [facility] [address] [place], [place] [address] 06/23/2024 11:00 AM CDT Virtual Visit [facility] & Addiction [facility] 6401 [place] [address] Kristin Vázquez, [facility] [address] [place] [address] 06/30/2024 2:00 PM CDT Virtual Visit [facility] 6401 [facility] [place] [address] Kristin Vázquez, [facility] [address] [place] [address] documented as of this encounter Goals Goal Patient Goal Type Associated Problems [...] clinic with 24/7 after hours services available. Assistant Product Manager will remain available as needed. documented as of this encounter Visit Diagnoses Not on filedocumented in this encounter Additional Health Concerns Active Problems Noted Date Diagnosed Date Increased risk of re-admission 02/18/2024 Assessment Noted Time PHQ-9 Depression Total Score: 16 024 3:27 PM CDT documented as of this encounter Care Teams Stone Rubber Relationship Specialty Start Date End Date Winston Villatoro, OD [facility] [address] [place] [address] PCP - Ophthalmology Ophthalmology 02/11/13 Denise Woodson Ra, APRN CERTIFIED FIRE INVESTIGATOR [address] [address] [address] PCP - General Family Practice 09/21/20 Denise Woodson Ra, APRN CERTIFIED FIRE INVESTIGATOR [address] [address] [address] Assigned PCP 07/17/20 Usha Simon APRN CERTIFIED FIRE INVESTIGATOR [address] [place] [place] [address] Nurse Practitioner Neurological Surgery 01/24/24 Dangelo Salinas MD [address] [place], [place] [id number] Neurology 01/27/24 Usha Simon APRN CERTIFIED FIRE INVESTIGATOR [address] [place] 5815821[address]J [place], [place] [address] Assigned Neuroscience Provider 02/06/24 Anastasia Stearns, RN Lead Assistant Product Manager 02/06/24 Germaine Lopez, W Community Health Worker Primary Care - CC 02/18/24 documented as of this encounter
--- OUTSIDE RECORDS SUMMARY | 2024-02-22 15:20 | XMS_ITS | Encounter Summary ---
Author Organization [place] Address [address] [place] [address] Care Team Providers Care Cooker Helper Name Role Phone ShaunaWinston OD Unavailable [phone] Denise Woodson Ra, APRN REMEDY DEVELOPER Unavailable [phone] Denise Woodson Ra, APRN REMEDY DEVELOPER Primary Care Provid er Usha Simon APRN REMEDY DEVELOPER Unavailable [phone] Dangelo Salinas MD Unavailable Usha Simon APRN REMEDY DEVELOPER Unavailable [phone] Anastasia Stearns RN Unavailable [phone] Encounter Details Date Type Department Care Team (Latest Contact Info) Description 02/15/2024 Travel Social History Tobacco Use Types Packs/Day [...] Info) Description 02/26/2024 1:40 PM CDT Appointment [facility] [address] [place] [place] [phone] Denise Woodson Ra, RANGE MANAGEMENT SPECIALIST REMEDY DEVELOPER [address] [facility] [place] [place] [address] 02/26/2024 2:15 PM CDT Therapy Visit [address] [phone] Danya You, AMAIRANI SOTO [address] [place] [address] 847874 Charis Chacon, JUAN [facility] [address] [place] [address] 02/26/2024 3:00 PM CDT Therapy Visit [address] [phone] Danya You, [place] 245Darren SOTO [address] [place] [address] Isabel Beaulieu OTR [address] [address] 02/27/2024 4:45 PM CDT Therapy Visit [address] [phone] Danya You, PA [address] [place] [address] Vanessa Duggan, PT 03/05/2024 1:30 PM CDT Therapy Visit [address] [phone] Danya You, PA [address] [address] Isabel Beaulieu, OTR [address] [address] 03/05/2024 3:15 PM CDT Therapy Visit [address] [phone] Danya You, [place] [address] [address] Charis Chacon, SURGERY SCHEDULER [facility] [address] [place] [address] 03/05/2024 4:15 PM CDT Therapy Visit [address] [phone] Danya You, PA [address] [address] Delicia George, PT [facility] 909 [place] [address] 03/11/2024 2:15 PM CDT Therapy Visit [address] [phone] Danya You, PA [address] 896854 Isabel Beaulieu, OTR [address] [address] 03/11/2024 3:00 PM CDT Therapy Visit [address] [phone] Danya You, PA [address] [address] Charis Chacon, SURGERY SCHEDULER [facility] [address] [place] [address] 03/11/2024 4:15 PM CDT Therapy Visit [address] [phone] Danya You, PA [address] 202924 Delicia George, PT [facility] [address] [place] [address] 03/17/2024 10:00 AM CDT Office Visit [facility] [address] [place] [address] Denise Woodson Ra, RANGE MANAGEMENT SPECIALIST [facility] [address] [place], [place] 6878868 03/17/2024 1:30 PM CDT Therapy Visit [address] [phone] [place], [place] [address] 106744 Isabel Beaulieu, OTR [facility] 150 [place] [address] 03/17/2024 2:30 PM CDT Therapy Visit [facility] [address] [place] [phone] Danya You, AMAIRANI [address] 303174 Charis Chacon, [facility] [address] [place] [address] 03/17/2024 4:00 PM CDT Therapy Visit [address] [phone] Danya You, PA 2450 [facility] [address] 867934 Vanessa Duggan, PT 03/23/2024 10:30 AM CDT Office Visit [facility] [address] [place] [phone] Denise Woodson Ra, RANGE MANAGEMENT SPECIALIST REMEDY DEVELOPER [address] [place], [place] 1139468 03/26/2024 1:30 PM CDT [facility] 150 [place] [phone] Danya You, PA 2450 [facility] [address] [address] Isabel Beaulieu, OTR [facility] 150 [place] [address] 03/26/2024 2:30 PM CDT Therapy Visit [address] [phone] Danya You, AMAIRANI [facility] [address] [address] Charis Chacon SLP [facility] [address] [place] [address] 03/26/2024 3:30 PM CDT Therapy Visit [address] [phone] Danya You, PA [address] [place] [address] Delicia George, PT [facility] [address] [place] [address] 04/02/2024 2:15 PM CDT Therapy Visit [address] [phone] Danya You, PA [address] [place] [address] Isabel Beaulieu, OTR [address] [address] 04/02/2024 3:15 PM CDT Therapy Visit [address] [phone] Danya You PA [address] [place], [place] [address]E [address] [address] Charis Chacon, [facility] [address] [place] [address] 04/02/2024 4:15 PM CDT Therapy Visit [address] [address] Danya You, AMAIRANI [address] [address] Delicia George, PT [address] 337625 04/09/2024 3:15 PM CDT Therapy Visit [address] [address] Danya You, AMAIRANI [address] [address] Charis Chacon, [facility] [address] [place] [address] 04/09/2024 4:15 PM CDT Therapy Visit [address] [address] Danya You, AMAIRANI [facility] [address] [address] Delicia George, PT [address] 383[address] 04/15/2024 9:30 AM CDT Therapy Visit [address] [phone] Danya You PA [address] [place] [address] Danya Restrepo SLP 04/23/2024 2:30 PM CDT Therapy Visit [facility] 150 [place] [address] Danya You PA [address] [place] [address] Charis Chacon, [facility] [address] [place] [address] 05/05/2024 2:30 PM CDT Office Visit [facility] [address], [address] [place] [phone] Rohit Barcenas MD [address] [place] [address] [address] [place] [address] 06/23/2024 11:00 AM CDT Virtual Visit [facility] Mental Health & Addiction [facility] 6401 [place] [phone] Kristin Vázquez, [facility] 6141 [place] [address] 06/30/2024 2:00 PM CDT Virtual Visit [facility] Mental Health & Addiction [facility] 6401 [place] [phone] Kristin Vázquez, [facility] 6341 [place] [address] documented as of this encounter Visit Diagnoses Not on filedocumented in this encounter Additional Health Concerns Assessment Noted Time PHQ-9 Depression Total Score: 16 024 3:27 PM CDT documented as of this encounter Care Teams Cooker Helper Relationship Specialty Start Date End Date Winston Villatoro OD [facility] [place] [employer] [address] [place] [address] PCP - Ophthalmology Ophthalmology 02/11/13 Denise Woodson Ra, APRN REMEDY DEVELOPER [address] [place] [address] PCP - General Family Practice 09/21/20 Denise Woodson Ra, APRN REMEDY DEVELOPER [address] [place] [address] Assigned PCP 07/17/20 Usha Simon APRN REMEDY DEVELOPER [address] [place] [address] Nurse Practitioner Neurological Surgery 01/24/24 Dangelo Salinas MD [address] [facility] 200 [place] [address] Neurology 01/27/24 Usha Simon APRN REMEDY DEVELOPER [address] [place] [address] Assigned Neuroscience Provider 02/06/24 Anastasia Stearns, RN Lead Facilities Plant Engineer 02/06/24 documented as of this encounter
--- OUTSIDE RECORDS SUMMARY | 2024-02-22 15:20 | XMS_ITS | Encounter Summary ---
Author Organization [place] Address [address] [place] [address]. [place] [address] Care Team Providers Care Mud Cleaner Operator Name Role Phone Winston Villatoro OD Unavailable [phone] Denise Woodson Ra, APRN HEAT REGULATOR Unavailable + [phone] eDnise Woodson Ra, APRN HEAT REGULATOR Primary Care Provid er Usha Simon APRN HEAT REGULATOR Unavailable + [phone] Dangelo Salinas MD Unavailable Usha Simon APRN HEAT REGULATOR Unavailable + [phone] Anastasia Stearns RN Unavailable [phone] Encounter Details Date Type Department Care Team (Late st Contact Info) Description 02/14/2024 [facility] [address] [place] [address] Denise Woodson Ra, APRN HEAT REGULATOR [address] [place] [address] Social History Tobacco Use Types Packs/Day Years [...] Info) Description 02/26/2024 1:40 PM CDT Appointment [facility] [place] [facility] [address] [place] [address] [place] [address] Denise Woodson Ra, FIELD MACHINIST HEAT REGULATOR [address] [place] [address] 02/26/2024 2:15 PM CDT Therapy Visit [address] [phone] Danya You, AMAIRANI [address] [place], [place] 852064 Charis Chacon [facility] [address] [place] [address] 02/26/2024 3:00 PM CDT Therapy Visit [address] [phone] Danya You PA [address] [place], [place] 085334 Isabel Beaulieu OTR [facility] 150 [place] [address] 02/27/2024 4:45 PM CDT Therapy Visit [facility] 150 [place] [address] Danya You, PA [address] [place] [address] Vanessa Duggan, PT 03/05/2024 1:30 PM CDT Therapy Visit [address] [phone] Danya You, PA [address] [address] Isabel Beaulieu OTJah [address] [address] 03/05/2024 3:15 PM CDT Therapy Visit [address] [phone] Danya You, PA [address] 448[address] Charis Chacon, [facility] [address] [place] [address] 03/05/2024 4:15 PM CDT Therapy Visit [address] [phone] Danya You, PA [address] 790514 Delicia George, PT [facility] [address] [address] 03/11/2024 2:15 PM CDT Therapy Visit [address] [phone] Danya You, AMAIRANI [address] [address] Isabel Beaulieu, OTR [address] [address] 03/11/2024 3:00 PM CDT Therapy Visit [address] [phone] Danya You, AMAIRANI 2450 [facility] [address] [address] Charis Chacon, J[facility] [address] [place] [address] 03/11/2024 4:15 PM CDT Therapy Visit [address] [phone] Danya You, PA [address] [place] [address] Delicia George, PT [facility] [address] [place] [address] 03/17/2024 10:00 AM CDT Office Visit [facility] [address] [place] [address] Denise Woodson Ra, FIELD MACHINIST HEAT REGULATOR [address] [place], [place] 6477768 03/17/2024 1:30 PM CDT Therapy Visit [facility] 150 [place] [address] Danya You PA [address] [place] [address] Isabel Beaulieu, OTR [address] [address] 03/17/2024 2:30 PM CDT Therapy Visit [address] [phone] Danya Yuo, AMAIRANI [address] [place] [address] Charis Chacon, [facility] [address] [place] [address] 03/17/2024 4:00 PM CDT Therapy Visit [address] [phone] Danya You, AMAIRANI [address] [place] [address] Vanessa Duggan, PT 03/23/2024 10:30 AM CDT Office Visit [facility] [address] [place] [phone] Denise Woodson Ra, FIELD MACHINIST [facility] [address] [place], [place] 6898168 03/26/2024 1:30 PM CDT Therapy Visit [address] [phone] Danya You PA [address] [place] [address] Isabel Beaulieu, OTR [place] [address] [address] 03/26/2024 2:30 PM CDT Therapy Visit [address] [phone] Danya You, AMAIRANI [address] [address] Charis Chacon, [facility] [address] [place] [address] 03/26/2024 3:30 PM CDT Therapy Visit [address] [phone] Danya You PA [address] [address] Delicia George, PT [facility] [address] [place] [address] 04/02/2024 2:15 PM CDT Therapy Visit [address] [phone] Danya You, AMAIRANI [address] [place] [address] Isabel Beaulieu, OTR [facility] [address] [place] [address] 04/02/2024 3:15 PM CDT Therapy Visit [facility] 150 [place] [address] Danya You PA [address] [place] [address] Charis Chacon SLP [facility] [address] [place] [address] 04/02/2024 4:15 PM CDT Therapy Visit [address] [phone] Danya You, AMAIRANI [address] [address] Delicia George, PT [address] [address] 04/09/2024 3:15 PM CDT Therapy Visit [address] [phone] Danya You, PA [facility]0 [address] [address] Charis Chacon, [facility] [address] [place] [address] 04/09/2024 4:15 PM CDT Therapy Visit [address] [phone] Danya You PA [facility] [address] [address] Delicia George, PT [address] [address] 04/15/2024 9:30 AM CDT Therapy Visit [facility] 150 [place] [address] Danya You, PA 2450 [facility] [address] [place] [address] Danya Restrepo, BATTERY ASSEMBLER PLASTIC 04/23/2024 2:30 PM CDT Therapy Visit [facility] [address] [place] [phone] [place] [address] [place] [place], [place] [address]E 213 [place] [address] Charis Chacon, [facility] [address] [place] [address] 05/05/2024 2:30 PM CDT Office Visit [facility] Epilepsy [facility] [address], [address] [place] [phone] Rohit Barcenas MD [address] [place] [address] 295 [place] [address] 06/23/2024 11:00 AM CDT Virtual Visit [facility] Mental Health & Addiction [facility] 6401 [place] [phone] Kristin Vázquez, [facility] 6341 [place] [address] 06/30/2024 2:00 PM CDT Virtual Visit [facility] [address]01 [place] [phone] Gurpreet Kristin M, [facility] 6341 [facility] PRIMO CORTEZ [phone] documented as of this encounter Visit Diagnoses Not on filedocumented in this encounter Additional Health Concerns Assessment Noted Time PHQ-9 Depression Total Score: 16 024 3:27 PM CDT documented as of this encounter Care Teams Mud Cleaner Operator Relationship Specialty Start Date End Date Winston Villatoro, AMELIE [facility] [place] [address] [place] [address] PCP - Ophthalmology Ophthalmology 02/11/13 Denise Woodson Ra, APRN HEAT REGULATOR [address] [place] [address] PCP - General Family Practice 09/21/20 Denise Woodson Ra FIELD MACHINIST HEAT REGULATOR [address] [place] [address] Assigned PCP 07/17/20 Usha Simon APRN HEAT REGULATOR [address] [place] [address] 859735 Nurse Practitioner Neurological Surgery 01/24/24 Dangelo Salinas MD [address] [address] Neurology 01/27/24 Usha Simon APRN HEAT REGULATOR [address] [address] Assigned Neuroscience Provider 02/06/24 Anastasia Stearns, RN Lead Platform Supervisor 02/06/24 documented as of this encounter
--- OUTSIDE RECORDS SUMMARY | 2024-02-22 15:20 | XMS_ITS | Encounter Summary ---
Author Organization Post Address [address] [place] [address] Care Team Providers Care Chief Risk Officer Name Role Phone Winston Villatoro OD Unavailable [phone] Denise Woodson Ra, APRN METALWORKING SPECIALIST Unavailable [phone] Denise Woodson Ra SENIOR IT ASSISTANT METALWORKING SPECIALIST Primary Care Provid er Usha Simon APRN METALWORKING SPECIALIST Unavailable [phone] Dangelo Salinas MD Unavailable Usha Simon APRN METALWORKING SPECIALIST Unavailable [phone] Anastasia Stearns RN Unavailable [phone] Germaine Lopez CHW Unavailable [phone] Reason for Visit * Rehab Therapy Integrated Services (Routine) - Authorized Specialty Diagnoses / Procedures Referred By Nila shah Referred To Contact Diagnoses Cerebrovascular accident (CVA), unspecified mechanism (H) [address] [address] Referral ID Status Reason Start Date Expiration Date V isits Requested Visits Authorized [id number] Authorized 09/16/2023 09/15/2024 365 365 Encounter Details Date Type Department Care Team (Late st Contact Info) Description 02/19/2024 3:00 PM CDT Therapy Visit [address] [phone] Danya You, PA [address] [place] [address] J[address] S[address] [place] [address] Isabel Beaulieu OTR [address] [address] Cerebrovascular accident (CVA), unspecified mechanism (H) (Primary Dx) Social History Tobacco Use Types [...] Info) Description 02/26/2024 1:40 PM CDT Appointment [facility] Specialty [facility] [address] [place] [phone] Denise Woodson Ra, SENIOR IT ASSISTANT METALWORKING SPECIALIST [address] [place] [address] 02/26/2024 2:15 PM CDT Therapy Visit [facility] Rehabilitation Services [address] [phone] Danya You PA [address] [place] [address] Charis Chacon SLP [facility] [address] [place] [address] 02/26/2024 3:00 PM CDT Therapy Visit [facility] [address] [place] [address] Danya You, PA [address] [place] [address] Isabel Beaulieu, OTR [facility] 150 [place] [address] 02/27/2024 4:45 PM CDT Therapy Visit [facility] 150 [place] [address] Danya You, PA [address] [address] Vanessa Duggan, PT 03/05/2024 1:30 PM CDT Therapy Visit [facility] 150 [place] [address] Danya You, PA [address] [place] [address] Isabel Beaulieu, OTR [facility] 150 [place] [address] 03/05/2024 3:15 PM CDT [facility] 150 [place] [phone] Danya You PA [address] [address] Charis Chacon, [facility] [address] [place] [address] 03/05/2024 4:15 PM CDT Therapy Visit [facility] 150 [place] [address] Danya You, PA 2450 [facility] [address] 6449[address] Delicia George, PT [facility] [address] [address] 03/11/2024 2:15 PM CDT Therapy Visit [address] [phone] Danya You, PA [address] [address] Isabel Beaulieu, OTR [address] [address] 03/11/2024 3:00 PM CDT Therapy Visit [address] [phone] Danya You, PA [address] [address] Charis Chacon, [facility] [address] [place], [place] [address] 03/11/2024 4:15 PM CDT Therapy Visit [address] [phone] Danya You, PA 2450 [facility] JIE [address] [address] Delicia George, PT [facility] 909 [place] [address] 03/17/2024 10:00 AM CDT Office Visit [facility] [address] [place] [phone] Denise Woodson Ra, SENIOR IT ASSISTANT METALWORKING SPECIALIST [address] [place], [place] [address] 03/17/2024 1:30 PM CDT Therapy Visit [address] [phone] Danya You, AMAIRANI Muller0 [address] [address] Isabel Beaulieu, OTR [address] [address] 03/17/2024 2:30 PM CDT Therapy Visit [address] [phone] Danya You, AMIARANI [address] [place], [place] [address] [address] [address] Charis Chacon, [facility] [address] [place] [address] 03/17/2024 4:00 PM CDT Therapy Visit [address] [phone] Danya You PA [facility] [address] [address] Vanessa Duggan, PT 03/23/2024 10:30 AM CDT Office Visit [facility] [address] [place] [phone] Denise Woodson Ra, SENIOR IT ASSISTANT METALWORKING SPECIALIST [address] [place], [place] [address] 03/26/2024 1:30 PM CDT Therapy Visit [address] [phone] Danya You PA [facility] [address] [address] Isabel Beaulieu, [address] [address] 03/26/2024 2:30 PM CDT Therapy Visit [address] [phone] Danya You, PA [address] [place] [address] 3[address]24 Charis Chacon, [facility] [facility] [address] [place] [address] 03/26/2024 3:30 PM CDT Therapy Visit [address] [phone] Danya You, PA [address] [place] [address] Delicia George, PT [address] [address] 04/02/2024 2:15 PM CDT Therapy Visit [address] [phone] Danya You, PA [address] [place] [address] Isabel Beaulieu, OTR [address] [address] 04/02/2024 3:15 PM CDT Therapy Visit [address] [address] Danya You, PA [address] [address] Charis Chacon, [facility] [address] [place] [address] 04/02/2024 4:15 PM CDT Therapy Visit [address] [phone] Danya You, PA [address] [address] Delicia George, PT [address] [address] 04/09/2024 3:15 PM CDT Therapy Visit [address] [address] Danya You, PA [address] [address] Charis Chacon, [facility] [address] [place] [address] 04/09/2024 4:15 PM CDT Therapy Visit [address] [phone] Danya You, AMAIRANI [address] [address] Delicia George, PT [facility] [address] [address] 04/15/2024 9:30 AM CDT Therapy Visit [address] [address] Danya You, PA [address] [address] Danya Restrepo SLP 04/23/2024 2:30 PM CDT Therapy Visit [address] [phone] Danya You PA [facility]0 [place] [address] [address] Charis Chacon, [facility] [address] [place] [address] 05/05/2024 2:30 PM CDT Office Visit [facility] [address], [address] [place] [address] Rohit Barcenas MD 420 [facility] 295 [place] [address] 06/23/2024 11:00 AM CDT Virtual Visit [facility] 6401 [facility] [place] [address] Kristin Vázquez, [facility] 6324 [place] [address] 06/30/2024 2:00 PM CDT Virtual Visit [facility] [address]01 [facility] [place] [address] Kristin Vázquez, [facility] 6[address] [place] [address] documented as of this encounter Goals Goal [...] clinic with 24/7 after hours services available. Director Hair will remain available as needed. documented as of this encounter Visit Diagnoses Diagnosis Cerebrovascular accident (CVA), unspecified mechanism (H)- Primary documented in this encounter Additional Health Concerns Active Problems Noted Date Diagnosed Date Increased risk of re-admission 02/18/2024 Assessment Noted Time PHQ-9 Depression Total Score: 16 024 3:27 PM CDT documented as of this encounter Care Teams Chief Risk Officer Relationship Specialty Start Date End Date Winston Villatoro OD [facility] [place] [address] [place] [address] PCP - Ophthalmology Ophthalmology 02/11/13 Denise Woodson Ra SENIOR IT ASSISTANT METALWORKING SPECIALIST [address] [place] [address] PCP - General Family Practice 09/21/20 Denise Woodson Ra SENIOR IT ASSISTANT METALWORKING SPECIALIST [address] [place] [address] Assigned PCP 07/17/20 Usha Simon APRN METALWORKING SPECIALIST [address] 070355 Nurse Practitioner Neurological Surgery 01/24/24 Dangelo Salinas MD [address] [place] [address] Neurology 01/27/24 Usha Simon APRN METALWORKING SPECIALIST [address] 435[address] Assigned Neuroscience Provider 02/06/24 Anastasia Stearns, RN Lead Director Hair 02/06/24 Germaine Lopez, CHW Community Health Worker Primary Care - CC 02/18/24 documented as of this encounter
--- OUTSIDE RECORDS SUMMARY | 2024-02-22 15:21 | XMS_ITS | Encounter Summary ---
Author Organization [place] Address [address] [place] [address] Care Team Providers Care Systems Test Analyst Name Role Phone ShaunaWinston OD Unavailable [phone] Denise Woodson Ra, APRN ECHOCARDIOLOGIST Unavailable [phone] Denise Woodson Ra, APRN ECHOCARDIOLOGIST Primary Care Provid er Usha Simon APRN ECHOCARDIOLOGIST Unavailable [phone] Dangelo Salinas MD Unavailable Usha Simon APRN ECHOCARDIOLOGIST Unavailable [phone] Anastasia Stearns RN Unavailable [phone] Encounter Details Date Type Department Care Team (Latest Contact Info) Description 02/14/2024 Travel Social History Tobacco Use Types Packs/Day [...] Info) Description 02/26/2024 1:[address] [facility] [address] [place] [address] [place] [phone] Denise Woodson Ra, DRIVER GUARD ECHOCARDIOLOGIST [address] [facility] [place] [address] 02/26/2024 2:15 PM CDT Therapy Visit [address] [phone] Danya You, AMAIRANI SOTO [address] [place] [address] Charis Chacon, [facility] [address] [place] [address] 02/26/2024 3:00 PM CDT Therapy Visit [address] [phone] Danya Yuo, PA 245Darren SOTO [address] [place] [address] Isabel Beaulieu OTR [address] [address] 02/27/2024 4:45 PM CDT Therapy Visit [address] [phone] Danya You, PA [address] [place] [address] Vanessa Duggan, PT 03/05/2024 1:30 PM CDT Therapy Visit [address] [phone] Danya You, PA [address] [address] Isabel Beaulieu, OTR [address] [address] 03/05/2024 3:15 PM CDT Therapy Visit [address] [phone] Danya You, PA [address] [place] [address] Charis Chacon, ASSEMBLY LOADER [facility] [address] [place] [address] 03/05/2024 4:15 PM CDT Therapy Visit [address] [phone] Danya You, PA [address] [address] Delicia George, PT [facility] 909 [place] [address] 03/11/2024 2:15 PM CDT Therapy Visit [address] [phone] Danya You, PA [address] 564[address] Isabel Beaulieu, OTR [address] [address] 03/11/2024 3:00 PM CDT Therapy Visit [address] [phone] Danya You, PA [address] [address] Charis Chacon, ASSEMBLY LOADER [facility] [address] [place] [address] 03/11/2024 4:15 PM CDT Therapy Visit [address] [phone] Danya You, PA [address] 314[address] Delicia George, PT [facility] [address] [place] [address] 03/17/2024 10:00 AM CDT Office Visit [facility] [address] [place] [address] Denise Woodson Ra, DRIVER GUARD [facility] [address] [place], [place] [address] 03/17/2024 1:30 PM CDT Therapy Visit [address] [phone] [place] [address] 234[address] Isabel Beaulieu, OTR [facility] 150 [place] [address] 03/17/2024 2:30 PM CDT Therapy Visit [facility] 150 [place] [address] Danya You, AMAIRANI [address] 741484 Charis Chacon, [facility] [address] [place] [address] 03/17/2024 4:00 PM CDT Therapy Visit [address] [phone] Danya You, PA 2450 [facility] [address] [address] Vanessa Duggan, PT 03/23/2024 10:30 AM CDT Office Visit [facility] [address] [place] [phone] Denise Woodson Ra, DRIVER GUARD ECHOCARDIOLOGIST [address] [place], [place] [address] 03/26/2024 1:30 PM CDT [facility] 150 [place] [address] Danya You, PA 2450 [facility] [address] [address] Isabel Beaulieu, OTR [facility] 150 [place] [address] 03/26/2024 2:30 PM CDT Therapy Visit [address] [phone] Danya You, AMAIRANI [facility] [address] [address] Charis Chacon SLP [facility] [address] [place] [address] 03/26/2024 3:30 PM CDT Therapy Visit [address] [phone] Danya You, PA [address] [place] [address] Delicia George, PT [facility] [address] [place] [address] 04/02/2024 2:15 PM CDT Therapy Visit [address] [phone] Danya You, PA [address] [place] [address] Isabel Beaulieu, OTR [address] [address] 04/02/2024 3:15 PM CDT Therapy Visit [address] [phone] Danya You PA [address] [place], [place] [address] [address] [address] Charis Chacon, [facility] [address] [place] [address] 04/02/2024 4:15 PM CDT Therapy Visit [address] [address] Danya You, AMAIRANI [address] [address] Delicia George, PT [address] 847845 04/09/2024 3:15 PM CDT Therapy Visit [address] [address] Danya You, AMAIRANI [address] [address] Charis Chacon, [facility] [address] [place] [address] 04/09/2024 4:15 PM CDT Therapy Visit [address] [address] Danya You, AMAIRANI [facility] [address] [address] Delicia George, PT [address] 899665 04/15/2024 9:30 AM CDT Therapy Visit [address] [phone] Danya You PA [address] [place] [address] Danya Restrepo SLP 04/23/2024 2:30 PM CDT Therapy Visit [facility] 150 [place] [address] Danya You PA [address] [place] [address] Chrais Chacon, [facility] [address] [place] [address] 05/05/2024 2:30 PM CDT Office Visit [facility] [address], [address] [place] [address] Rohit Barcenas MD [address] [place] [address] 295 [place] [address] 06/23/2024 11:00 AM CDT Virtual Visit [facility] 6401 [place] [phone] Kristin Vázquez, [facility] 9041 [place] [address] 06/30/2024 2:00 PM CDT Virtual Visit [facility] 6401 [place] [address] Kristin Vázquez, [facility] 6341 [place] [address] documented as of this encounter Visit Diagnoses Not on filedocumented in this encounter Additional Health Concerns Assessment Noted Time PHQ-9 Depression Total Score: 16 024 3:27 PM CDT documented as of this encounter Care Teams Systems Test Analyst Relationship Specialty Start Date End Date Winston Villatoro OD [facility] [place] [address] [place] [address] PCP - Ophthalmology Ophthalmology 02/11/13 Denise Woodson Ra, APRN ECHOCARDIOLOGIST [address] [place] [address] PCP - General Family Practice 09/21/20 Denise Woodson Ra, APRN ECHOCARDIOLOGIST [address] [place] [address] Assigned PCP 07/17/20 Usha Simon APRN ECHOCARDIOLOGIST [address] [place] [address] Nurse Practitioner Neurological Surgery 01/24/24 Dangelo Salinas MD [address] [facility] 200 [place] [address] Neurology 01/27/24 Usha Simon APRN ECHOCARDIOLOGIST [address] [place] [address] Assigned Neuroscience Provider 02/06/24 Anastasia Stearns, RN Lead Case Maker 02/06/24 documented as of this encounter
--- OUTSIDE RECORDS SUMMARY | 2024-02-22 15:21 | XMS_ITS | Encounter Summary ---
Author Organization [place] Address [address] [place] [address] Care Team Providers Care Fine Chemicals Operator Name Role Phone ShaunaWinston OD Unavailable [phone] Denise Woodson Ra, APRN MEDICAL INFORMATION SPECIALIST Unavailable [phone] Denise Woodson Ra, APRN MEDICAL INFORMATION SPECIALIST Primary Care Provid er Usha Simon APRN MEDICAL INFORMATION SPECIALIST Unavailable [phone] Dangelo Salinas MD Unavailable Usha Simon APRN MEDICAL INFORMATION SPECIALIST Unavailable [phone] Anastasia Stearns RN Unavailable [phone] Encounter Details Date Type Department Care Team (Latest Contact Info) Description 02/13/2024 Travel Social History Tobacco Use Types Packs/Day [...] Info) Description 02/26/2024 1:40 PM CDT Appointment [facility] Imaging [address] [place] [phone] Denise Woodson Ra, INSIGHTS MANAGER MEDICAL INFORMATION SPECIALIST [address] [facility] [place] [address] 02/26/2024 2:15 PM CDT Therapy Visit [address] [phone] Danya You, MAAIRANI SOTO [address] [place] [address] 771834 Charis Chacon, JUAN [facility] [address] [place] [address] 02/26/2024 3:00 PM CDT Therapy Visit [address] [phone] Danya You, [place] 245Darren SOTO [address] [place] [address] Isabel Beaulieu OTR [address] [address] 02/27/2024 4:45 PM CDT Therapy Visit [address] [phone] Danya You, PA [address] [place] [address] Vanessa Duggan, PT 03/05/2024 1:30 PM CDT Therapy Visit [address] [phone] Danya You, PA [address] [address] Isabel Beaulieu, OTR [address] [address] 03/05/2024 3:15 PM CDT Therapy Visit [address] [phone] [place] [address] [address] Charis Chacon, INFO PRINT PRESS OPERATOR [facility] [address] [place] [address] 03/05/2024 4:15 PM CDT Therapy Visit [address] [phone] Danya You, PA [address] [address] Delicia George, PT [facility] [address] [place] [address] 03/11/2024 2:15 PM CDT Therapy Visit [address] [phone] Danya You, PA [address] 814924 Isabel Beaulieu, OTR [address] [address] 03/11/2024 3:00 PM CDT Therapy Visit [address] [phone] Danya You, PA [address] [address] Charis Chacon, INFO PRINT PRESS OPERATOR [facility] [address] [place] [address] 03/11/2024 4:15 PM CDT Therapy Visit [address] [phone] Danya You, PA [address] 284894 Delicia George, PT [facility] [address] [place] [address] 03/17/2024 10:00 AM CDT Office Visit [facility] [address] [place] [address] Denise Woodson Ra, INSIGHTS MANAGER [facility] [address] [place], [place] 8184768 03/17/2024 1:30 PM CDT Therapy Visit [address] [phone] Danya [place], PA [address] 449544 Isabel Beaulieu, OTR [facility] 150 [place] [address] 03/17/2024 2:30 PM CDT Therapy Visit [facility] [address] [place] [phone] Danya You, AMAIRANI [address] 977934 Charis Chacon, JUAN [facility] [address] [place] [address] 03/17/2024 4:00 PM CDT Therapy Visit [address] [phone] Danya You, PA 2450 [facility] [address] 045374 Vanessa Duggan, PT 03/23/2024 10:30 AM CDT Office Visit [facility] [address] [place] [phone] Denise Woodson Ra, INSIGHTS MANAGER MEDICAL INFORMATION SPECIALIST [address] [place], [place] 6981668 03/26/2024 1:30 PM CDT [facility] 150 [place] [phone] Danya You, PA 2450 [facility] [address] [address] Isabel Beaulieu, OTR [facility] 150 [place] [address] 03/26/2024 2:30 PM CDT Therapy Visit [address] [phone] Danya You, AMAIRANI [facility] [address] [address] Charis Chacon SLP [facility] [address] [place] [address] 03/26/2024 3:30 PM CDT Therapy Visit [address] [phone] Danya You, PA [address] [place] [address] Delicia George, PT [facility] [address] [place] [address] 04/02/2024 2:15 PM CDT Therapy Visit [address] [phone] Danya You, PA [address] [place] [address] Isabel Beaulieu, OTR [address] [address] 04/02/2024 3:15 PM CDT Therapy Visit [address] [phone] Danya You PA [address] [place], [place] [address] [address] [address] Charis Chacon, JUAN [facility] [address] [place] [address] 04/02/2024 4:15 PM CDT Therapy Visit [address] [phone] Danya You, AMAIRANI [address] [address] Delicia George, PT [address] 055385 04/09/2024 3:15 PM CDT Therapy Visit [address] [address] Danya You, AMAIRANI [address] [address] Charis Chacon, JUAN [facility] [address] [place] [address] 04/09/2024 4:15 PM CDT Therapy Visit [address] [phone] Danya You, AMAIRANI [facility] [address] [address] Delicia George, PT [address] 975645 04/15/2024 9:30 AM CDT Therapy Visit [address] [phone] Danya You PA [address] [place] [address] Danya Restrepo SLP 04/23/2024 2:30 PM CDT Therapy Visit [facility] 150 [place] [address] Danya You PA [address] SOTO [address] [place] [address] Charis Chacon, JUAN [facility] [address] [place] [address] 05/05/2024 2:30 PM CDT Office Visit [facility] [address], [address] [place] [phone] Rohit Barcenas MD [address] [place] [address] [address] [place] [address] 06/23/2024 11:00 AM CDT Virtual Visit [facility] 6401 [place] [phone] Kristin Vázquez, [facility] 6841 [place] [address] 06/30/2024 2:00 PM CDT Virtual Visit [facility] 6401 [place] [phone] Kristin Vázquez, [facility] 6[address] [place] [address] documented as of this encounter Visit Diagnoses Not on filedocumented in this encounter Additional Health Concerns Assessment Noted Time PHQ-9 Depression Total Score: 16 024 3:27 PM CDT documented as of this encounter Care Teams Fine Chemicals Operator Relationship Specialty Start Date End Date Winston Villatoro OD [facility] [place] [address] [place] [address] PCP - Ophthalmology Ophthalmology 02/11/13 Denise Woodson Ra, APRN MEDICAL INFORMATION SPECIALIST [address] [place] [address] PCP - General Family Practice 09/21/20 Denise Woodson Ra, APRN MEDICAL INFORMATION SPECIALIST [address] [place] [address] Assigned PCP 07/17/20 Usha Simon APRN MEDICAL INFORMATION SPECIALIST [address] [place] [address] Nurse Practitioner Neurological Surgery 01/24/24 Dangelo Salinas MD [address] [facility] [address] [place] [address] Neurology 01/27/24 Usha Simon APRN MEDICAL INFORMATION SPECIALIST [address] [place] [address] Assigned Neuroscience Provider 02/06/24 Anastasia Stearns, RN Lead Manager Patient 02/06/24 documented as of this encounter
--- OUTSIDE RECORDS SUMMARY | 2024-02-22 15:21 | XMS_ITS | Encounter Summary ---
Author Organization [place] Address [address] [place] [address]. [place] [address] Care Team Providers Care Medical Radiation Tech Name Role Phone Winston Villatoro OD Unavailable [phone] Denise Woodson Ra, APRN SVP MONETIZATION Unavailable [phone] Denise Woodson Ra, APRN SVP MONETIZATION Primary Care Provid er Usha Simon APRN SVP MONETIZATION Unavailable [phone] Dangelo Salinas MD Unavailable Usha Simon APRN SVP MONETIZATION Unavailable [phone] Anastasia Stearns RN Unavailable [phone] Reason for Visit * Reason Comments Video Visit Dural AVF Encounter Details Date Type Department Care Team (Latest Contact Info) Description 02/12/2024 3:40 PM CDT Virtual Visit [facility] [address] [place] [address] Robin Zepeda MD [address] [place] [address] [id number] [place] [address] Dural arteriovenous fistula (Primary Dx) [...] this encounter Patient Instructions * Patient Instructions* Wendy Pereira RN - 02/12/2024 3:40 PM CDT Follow up with Dr Zepeda in 6 months either in person or virtual. Call Wendy RIBEIRO Neurosurgery Oil Spreader Operator with questions/concerns [phone] Thank you for using [employer] documented in this encounter Progress Notes * Robin Zepeda MD - 02/12/2024 3:40 PM CDT Virtual Visit Details Type of service: Phone Visit I the pleasure to talk to Jose today by telephone. She gave consent for this visit. Briefly Jose is a 48-year-old woman who lives in [place]. 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 Sheis lived in [place] for the last 4 years. Her had grown up there and graduated from [employer] from high school. She was in her normal state of health until about 3 months ago. At that time she felt that she could hear her heartbeat through her ear while sleeping. This prompted a visit to [facility] where she had a CT scan that showed an asymmetric occipital artery. This then prompted a cerebral angiogram at [facility]. This was done by Dr. Gutierrez. 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 She then went to rehab and has been at home for the last 2 weeks. She presents for second opinion. Today I talked to her about type I dural fistulas. There is very low risk for hemorrhage associatedwith type I. As such our treatment typically is for symptom relief. She says that just this last week she no longer can hear pulsation in her ear. Given everything she has gone through and that this is a type I fistula my recommendation right nowwould be observation. She is in complete agreement with that. I would like her to come and see me either virtually or in person in 6 months again she is in agreement with this plan. documented in this encounter Nursing Notes * Eve Diaz - 02/12/2024 3:40 PM CDT Is the patient currently in the state of [place]? YES Visit mode:VIDEO If the visit is dropped, the patient can be reconnected by: TELEPHONE VISIT: Phone number: Telephone Information: Will anyone else be joining the visit? NO (If patient encounters technical issues they should call [phone] How would you like to obtain your AVS? MyChart Are changes needed to the allergy or medication list? Pt stated no med changes Are refills needed on medications prescribed by this physician? NO Reason for visit: Video Visit (Dural AVF ) Eve Diaz VVF * Wendy Pereira RN - 02/12/2024 3:40 PM CDT .depre * Wendy Pereira RN - 02/12/2024 3:40 PM CDT Depression Screening Follow-up 02/12/2024 3:26 PM PHQ PHQ-9 Total Score 16 Q9: Thoughts of better off /self-harm past 2 weeks Not at all Does the patient currently have a mental health provider? Yes, patient was referred back to currentmental health provider. CARL NGUYEN RN documented in this encounter Miscellaneous Notes * Addendum Note - Wendy Pereira RN - 02/12/2024 3:40 PM CDTAddended by: WENDY PEREIRA on: 02/13/2024 12:33 AM Modules accepted: Orders documented in this encounter Plan of Treatment Upcoming Encounters Date Type Department Care Team (Late st Contact Info) Description 02/26/2024 1:40 PM CDT Appointment [facility] Imaging [address] [place] [address] [place] [address] Denise Woodson Ra, MOTEL FRONT DESK CLERK SVP MONETIZATION [address] [facility] [place] [place] [address] 02/26/2024 2:15 PM CDT Therapy Visit [address] [phone] Danya You, PA Yohana0 [address] [place], [place] 800[address] Charis Chacon, JUAN [facility] [address] [place] [address] 02/26/2024 3:00 PM CDT Therapy Visit [address] [phone] Danya You, PA [address] [place], [place] 459584 Isabel Beaulieu OTR [address] [address] 02/27/2024 4:45 PM CDT Therapy Visit [address] [phone] Danya You, PA [address] 901624 Vanessa Duggan, PT 03/05/2024 1:30 PM CDT Therapy Visit [address] [phone] Danya You, PA [address] [address] Isabel Beaulieu, OTR [address] [address] 03/05/2024 3:15 PM CDT Therapy Visit [address] [phone] Danya oYu, PA [address] [address] Charis Chacon, [facility] [address] [place] [address] 03/05/2024 4:15 PM CDT Therapy Visit [address] [phone] Danya You, PA [address] [address] Delicia George, PT [facility] SURGERY [address] [address] 03/11/2024 2:15 PM CDT Therapy Visit [address] [phone] Danya You PA 2450 [facility] JIE SOTO [address] [place] [address] Isabel Beaulieu, OTR [facility] [address] [place] [address] 03/11/2024 3:00 PM CDT Therapy Visit [address] [phone] Danya You, PA [address] SOTO [address] [place] [address] Charis Chacon SLP [facility] [address] [place] [address] 03/11/2024 4:15 PM CDT Therapy Visit [address] [phone] Danya You, PA [address] [address] Delicia George, PT [facility] [address] [place] [address] 03/17/2024 10:00 AM CDT Office Visit [facility] [address] [place] [address] Denise Woodson Ra, MOTEL FRONT DESK CLERK [facility] [address] [place], [place] 605[address] 03/17/2024 1:30 PM CDT Therapy Visit [address] [phone] Danya You PA [address] [address] Isabel Beaulieu, OTR [address] [address] 03/17/2024 2:30 PM CDT Therapy Visit [address] [phone] Danya You, PA [address] [address] Charis Chacon, JUAN [facility] [address] [place] [address] 03/17/2024 4:00 PM CDT Therapy Visit [address] [phone] Danya You, PA [address] [place] [address] 7664[address] Vanessa Duggan, PT 03/23/2024 10:30 AM CDT Office Visit [facility] [address] [place] [address] Denise Woodson Ra, MOTEL FRONT DESK CLERK [employer] MONETIZATION [address] [place], [place] 6874968 03/26/2024 1:30 PM CDT Therapy Visit [address] [phone] Danya Yuo, PA [address] [address] Isabel Beaulieu, OTR [facility] [address] [place] [address] 03/26/2024 2:30 PM CDT Therapy Visit [facility] [address] [place] [address] Danya You, AMAIRANI [address] [address] Charis Chacon, [facility] [address] [place] [address] 03/26/2024 3:30 PM CDT Therapy Visit [address] [phone] Danya You, PA [address] [address] Delicia George, PT [facility] [address] [place] [address] 04/02/2024 2:15 PM CDT Therapy Visit [facility] [address] [place] [phone] Danya You, PA 2450 [facility] [address] [place] [address] Isabel Beaulieu, OTR [facility] [address] [place] [address] 04/02/2024 3:15 PM CDT Therapy Visit [facility] [address] [place] [address] Danya You PA 2450 [facility] [address] [place] [address] Charis Chacon SLP [facility] [address] [place] [address] 04/02/2024 4:15 PM CDT Therapy Visit [address] [address] Danya You PA 2450 [facility] [address] [address] Delicia George, PT [address] [address] 04/09/2024 3:15 PM CDT Therapy Visit [address] [address] Danya You, AMAIRANI [address] [address] Charis Chacon, JUAN [facility] [address] [place] [address] 04/09/2024 4:15 PM CDT Therapy Visit [address] [address] Danya You PA [address] [address] Delicia George, PT [address] [address] 04/15/2024 9:30 AM CDT Therapy Visit [facility] [address] [place] [phone] Danya You, PA [address] [place] [address] Danya Restrepo HEALTH AND PHYSICAL EDUCATION TEACHER 04/23/2024 2:30 PM CDT Therapy Visit [facility] [address] [place] [phone] [place] [address] [place] [address] [address] [place] [address] Charis Chacon, JUAN [facility] [address] [place] [address] 05/05/2024 2:30 PM CDT Office Visit [facility] [address], [address] [place] [phone] Rohit Barcenas MD [address] [place] [address] 295 [place] [address] 06/23/2024 11:00 AM CDT Virtual Visit [facility] [address] [address] Kristin Vázquez, [facility] [address] [place] [address] 06/30/2024 2:00 PM CDT Virtual Visit [facility] [place] [address] [place] [address] Kristin Vázquez, [facility] [address] [place] [address] documented as of this encounter Visit Diagnoses Diagnosis Dural arteriovenous fistula- Primary Cerebral aneurysm, nonruptured documented in this encounter Additional Health Concerns Assessment Noted Time PHQ-9 Depression Total Score: 16 024 3:27 PM CDT documented as of this encounter Care Teams Medical Radiation Tech Relationship Specialty Start Date End Date Winston Villatoro OD [facility] [place] [address] [place] [address] PCP - Ophthalmology Ophthalmology 02/11/13 Denise Woodson Ra, APRN SVP MONETIZATION [address] [address] [place] [address] PCP - General Family Practice 09/21/20 Denise Woodson Ra MOTEL FRONT DESK CLERK SV[employer] MONETIZATION [address] [address] [place] [address] Assigned PCP 07/17/20 Usha Simon APRN SVP MONETIZATION [address] [place] [address] Nurse Practitioner Neurological Surgery 01/24/24 Dangelo Salinas MD [address] [place] [address] Neurology 01/27/24 Usha Simon APRN SVP MONETIZATION [address] [place] [address] Assigned Neuroscience Provider 02/06/24 Anastasia Stearns RN Lead Oil Spreader Operator 02/06/24 documented as of this encounter
--- OUTSIDE RECORDS SUMMARY | 2024-02-22 15:21 | XMS_ITS | Encounter Summary ---
Author Organization [place] Address [address] [place] [address]. [place] [address] Care Team Providers Care Heater Mechanic Name Role Phone Winston Villatoro OD Unavailable [phone] Denise Woodson Ra, APRN PHOTO FINISHER Unavailable [phone]- [phone] Denise Woodson Ra DISPATCH SPECIALIST PHOTO FINISHER Primary Care Provid er Usha Simon APRN PHOTO FINISHER Unavailable [phone] Dangelo Salinas MD Unavailable Usha Simon APRN PHOTO FINISHER Unavailable [phone] Anastasia Stearns RN Unavailable [phone] Reason for Visit * Rehab Therapy Integrated Services (Routine) - Authorized Specialty Diagnoses / Procedures Referred By Contac t Referred To Contact Diagnoses Cerebrovascular accident (CVA), unspecified mechanism (H) [address] [address] Referral ID Status Reason Start Date Expiration Date V isits Requested Visits Authorized [id number] Authorized 09/16/2023 09/15/2024 365 365 Encounter Details Date Type Department Care Team (Latest Contact Info) Description 02/07/2024 2:00 PM CDT Therapy Visit [address] [phone] Danya You, AMAIRANI [address] [place] [address] Charis Chacon SLP [facility] [address] [place], [place] [address] Cerebrovascular accident (CVA), unspecified mechanism (H) (Primary Dx) Social History Tobacco Use Types Packs/Day Years Used Date Smoking Tobacco: Never Smokeless Tobacco: Never Alcohol Use Standard Drinks/Week Comments Not Currently 0 (1 standard drink = 0.6 oz pur e alcohol) minimal PHQ-2 Answer Date Recorded PHQ-2 Score 2 02/06/2024 Adolescent Education Answer Date Record ed Getting [...] Info) Description 02/26/2024 1:40 PM CDT Appointment [facility] [address] [facility] [address] [place] [address] Denise Woodson Ra, DISPATCH SPECIALIST PHOTO FINISHER [address] [facility] [place] [address] 02/26/2024 2:15 PM CDT Therapy Visit [facility] Services [address] [address] Danya You, AMAIRANI [address] [place] [address] Charis Chacon SLP [facility] [address] [place] [address] 02/26/2024 3:00 PM CDT Therapy Visit [facility] 150 [place] [address] Danya You, AMAIRANI [address] [place] [address] Isabel Beaulieu, OTR [facility] 150 [place] [address] 02/27/2024 4:45 PM CDT Therapy Visit [address] [phone] Danya You, PA [address] [place], [place] [address] Vanessa Duggan, PT 03/05/2024 1:30 PM CDT Therapy Visit [address] [phone] Danya You, PA [address] [place] [address] Isabel Beaulieu, OTR [address] [address] 03/05/2024 3:15 PM CDT Therapy Visit [address] [phone] Danya You, PA [facility] [place] [address] Charis Chacon, [employer] SORTER [facility] [address] [place] [address] 03/05/2024 4:15 PM CDT Therapy Visit [address] [phone] Danya You PA [address] [place] [address] Delicia George, PT [facility] [address] [place] [address] 03/11/2024 2:15 PM CDT Therapy Visit [address] [phone] Danya You, AMAIRANI [address] [place] [address] Isabel Beaulieu, OTR [address] [address] 03/11/2024 3:00 PM CDT Therapy Visit [address] [phone] Danya You, PA [address] [address] Charis Chacon, [facility] [address] [place] [address] 03/11/2024 4:15 PM CDT Therapy Visit [address] [phone] Danya You PA [address] [place] [address] Delicia George, PT [facility] [address] [place] [address] 03/17/2024 10:00 AM CDT Office Visit [facility] [address] [place] [phone] Denise Woodson Ra, DISPATCH SPECIALIST PHOTO FINISHER [address] [place], [place] [address] 03/17/2024 1:30 PM CDT Therapy Visit [address] [phone] Danya You, AMAIRANI Muller[address] [place] [address] Isabel Beaulieu, OTJah [address] [address] 03/17/2024 2:30 PM CDT Therapy Visit [address] [phone] Danya You, PA [address] [place] [address] Charis Chacon, JUAN [facility] [address] [place] [address] 03/17/2024 4:00 PM CDT Therapy Visit [address] [phone] Danya You, AMAIRANI SOTO [address] [place] [address] Vanessa Duggan, PT 03/23/2024 10:30 AM CDT Office Visit [facility] [address] [place] [phone] Denise Woodson Ra, APRN CNP [address] [place], [place] [address] 03/26/2024 1:30 PM CDT Therapy Visit [address] [phone] Danya You, AMAIRANI [address] 67[address] Isabel Beaulieu, OTR [facility] [address] [place] [address] 03/26/2024 2:30 PM CDT Therapy Visit [address] [phone] Danya You, AMAIRANI 2450 [facility] [address] [address] Charis Chacon, [facility] [address] [place] [address] 03/26/2024 3:30 PM CDT Therapy Visit [address] [phone] Danya You, AMAIRANI [address] 339064 Delicia George, PT [facility] [address] [place] [address] 04/02/2024 2:15 PM CDT Therapy Visit [address] [phone] Danya You, PA [address] [place] [address] Isabel Beaulieu, OTR [address] [address] 04/02/2024 3:15 PM CDT Therapy Visit [address] [phone] Danya You, AMAIRANI [address] [place] [address] Charis Chacon, JUAN [facility] [address] [place] [address] 04/02/2024 4:15 PM CDT Therapy Visit [address] [phone] Danya You, PA [address] [place] [address] Delicia George, PT [facility] [address] [place] [address] 04/09/2024 3:15 PM CDT Therapy Visit [address] [phone] Danya You, PA [address] [place] [address] Charis Chacon, JUAN [facility] [address] [place] [address] 04/09/2024 4:15 PM CDT Therapy Visit [address] [address] Danya You, PA [address] [place] [address] Delicia George, PT [facility] [address] [address] 04/15/2024 9:30 AM CDT Therapy Visit [address] [address] Danya You, PA 2450 [facility] 213 [place] [address] Danya Restrepo SLP 04/23/2024 2:30 PM CDT Therapy Visit [address] [address] Danya You, PA [facility] [address] [place] [address] Charis Chacon, JUAN [facility] [address] [place] [address] 05/05/2024 2:30 PM CDT Office Visit [facility] [place] [facility] [address], [address] [place] [address] Rohit Barcenas MD 420 [facility] 295 [place] [address] 06/23/2024 11:00 AM CDT Virtual Visit [facility] Mental [facility] [address] [facility] [place] [address] Kristin Vázquez, [facility] [address] [place] [address] 06/30/2024 2:00 PM CDT Virtual Visit [facility] & [facility] [address]01 [place] [address] Kristin Vázquez, [facility] 6341 [facility] [place] [address] documented as of this encounter Visit Diagnoses Diagnosis Cerebrovascular accident (CVA), unspecified mechanism (H)- Primary documented in this encounter Additional Health Concerns Assessment Noted Time PHQ-9 Depression Total Score: 14 024 9:33 AM CDT documented as of this encounter Care Teams Heater Mechanic Relationship Specialty Start Date End Date Winston Villatoro OD [facility] [place] [address] [facility] [address] [place] [address] PCP - Ophthalmology Ophthalmology 02/11/13 Denise Woodson Ra, APRN PHOTO FINISHER [address] [place] [address] PCP - General Family Practice 09/21/20 Denise Woodson Ra, APRN PHOTO FINISHER [address] [place] [address] Assigned PCP 07/17/20 Usha Simon APRN PHOTO FINISHER [address] [place] [address] [address] Nurse Practitioner Neurological Surgery 01/24/24 Dangelo [place] MD [address] [place] [address] Neurology 01/27/24 Usha Simon APRN PHOTO FINISHER [address] [facility] [place] [address] Assigned Neuroscience Provider 02/06/24 Anatsasia Stearns, RN Lead Lining Finisher 02/06/24 documented as of this encounter
--- OUTSIDE RECORDS SUMMARY | 2024-02-22 15:21 | XMS_ITS | Encounter Summary ---
Author Organization [place] Address [address] [place] [address] Care Team Providers Care Librarian School Name Role Phone Winston Villatoro OD Unavailable [phone] Denise Woodson Ra, APRN ELECTRICAL APPRENTICE Unavailable [phone] Denise Woodson Ra SHIFTMAN ELECTRICAL APPRENTICE Primary Care Provid er Usha Simon APRN ELECTRICAL APPRENTICE Unavailable + [phone] Dangelo [place] MD Unavailable Usha Simon APRN ELECTRICAL APPRENTICE Unavailable [phone]- [phone] Anastasia Stearns RN Unavailable [phone] Reason for Visit * Reason Onset Date Comments Appointment 02/06/2024 Follow-up 4 PHQ9 Encounter Details Date Type Department Care Team (Late st Contact Info) Description 02/06/2024 [facility] [address] 3rd [place] [address] Meche De La Cruz RN Appointment (Follow-up 02/04/24 PHQ9) Social History Tobacco Use Types Packs/Day Years Used Date Smoking Tobacco: Never Smokeless Tobacco: Never Alcohol Use Standard Drinks/Week Comments Not Currently 0 (1 standard drink = 0.6 oz pur e alcohol) minimal PHQ-2 Answer Date Recorded PHQ-2 Score 2 02/06/2024 Adolescent Education Answer Date Record ed Getting School Help Needed Not on file 10/16 /2023 Interpersonal Safety Answer Date Record ed Do [...] encounter Miscellaneous Notes * Telephone Encounter - Meche De La Cruz RN - 02/06/2024 2:24 PM CDT Patient had high PHQ9 at 02/04/[address] Hoyos - patient was sent to the ED for stroke symptoms before appointment completed. Adult Mental Health Referral placed. Call placed to patient to ensure patient is aware of referral and receives appropriate care. Spoke with patient. States she has an appointment with MH provider in April. Within the past monthpatient denies thoughts of killing herself, or starting to do anything or preparing to do anything to end her life. Saw primary care provider this AM who is working on getting her in sooner and getting her connected with a FP Transportation Maintenance Operator. Has good family support. Patient is aware that she may receive another call to schedule given another referral was placed. Advised to continue to follow-up with primary care provider. Patient verbalized understanding and appreciative of the call. Meche De La Cruz RN 02/06/2024 2:51 PM documented in this encounter Plan of Treatment Upcoming Encounters Date Type Department Care Team (Late st Contact Info) Description 02/26/2024 1:40 PM CDT Appointment [facility] Imaging [address] [facility] [address] [place] [address] Denise Woodson Ra, SHIFTMAN ELECTRICAL APPRENTICE [address] [place] [address] 02/26/2024 2:15 PM CDT Therapy Visit [facility] 150 [place] [address] Danya You, PA [address] [facility] [address] [place] [address] Charis Chacon, JUAN [facility] [address] [place] [address] 02/26/2024 3:00 PM CDT Therapy Visit [address] [phone] Danya You, AMAIRANI [address] [facility] [address] [place], [place] [address] Isabel Beaulieu OTJah SHEPPARD [address] [address] 02/27/2024 4:45 PM CDT Therapy Visit [address] [phone] Danya You, PA [address] [facility] [address] [place], [place] [address] Vanessa Duggan, PT 03/05/2024 1:30 PM CDT Therapy Visit [address] [phone] Danya You PA 24[address] [facility] [address] [place] [address] Isabel Beaulieu OTR [address] [address] 03/05/2024 3:15 PM CDT Therapy Visit [facility] 150 [place] [address] Danya You, AMAIRANI 2450 [facility] [address] [address] Charis Chacon SLP [facility] [address] [place] [address] 03/05/2024 4:15 PM CDT Therapy Visit [address] [phone] Danya You, PA 2450 [facility] [address] [address] Delicia George, PT [facility] [address] [place] [address] 03/11/2024 2:15 PM CDT Therapy Visit [address] [address] Danya You, PA [facility] [address] [address] Isabel Beaulieu, OTJah [facility] 150 [place] [address] 03/11/2024 3:00 PM CDT Therapy Visit [address] [phone] Danya You PA [address]50 [facility] [address] [address] Charis Chacon, JUAN [facility] [address] [place] [address] 03/11/2024 4:15 PM CDT Therapy Visit [address] [phone] Danya You, PA [address] [place] [address] 6[address] Delicia George, PT [facility] [address] [address] 03/17/2024 10:00 AM CDT Office Visit [facility] [address] [place] [phone] Denise Woodson Ra, SHIFTMAN ELECTRICAL APPRENTICE [address] [place], [place] 20[address] 03/17/2024 1:30 PM CDT Therapy Visit [address] [phone] Danya You, PA [address]70 [facility] [address] [address] Isabel Beaulieu, OTR [address] [address] 03/17/2024 2:30 PM CDT Therapy Visit [address] [phone] Danya You, PA [address] [place] [address] 6[address] Charis Chacon SLP [facility] [address] [place] [address] 03/17/2024 4:00 PM CDT Therapy Visit [facility] [address] [place] [address] Danya You, PA [address] [place] [address] Vanessa Duggan, PT 03/23/2024 10:30 AM CDT Office Visit [facility] [address] [place] [address] Denise Woodson Ra, SHIFTMAN ELECTRICAL APPRENTICE [address] [place], [place] [address] 03/26/2024 1:30 PM CDT Therapy Visit [facility] 150 [place] [address] Danya You, PA [address] [place], [place] [address] Isabel Beaulieu, OTR [facility] 150 [place] [address] 03/26/2024 2:30 PM CDT Therapy Visit [facility] 150 [place] [address] Danya You, PA [address] [place], [place] [address] Charis Chacon, JUAN [facility] [address] [place] [address] 03/26/2024 3:30 PM CDT Therapy Visit [facility] 150 [place] [address] Danya You, AMAIRANI [address] [address] Delicia George, PT [address] [address] 04/02/2024 2:15 PM CDT Therapy Visit [address] [phone] Danya You, PA [address] [place] [address] [address] Isabel Beaulieu OTR [address] [address] 04/02/2024 3:15 PM CDT Therapy Visit [address] [phone] Danya You, PA [facility] [address] [address] Charis Chacon, JUAN [facility] [address] [place] [address] 04/02/2024 4:15 PM CDT Therapy Visit [address] [phone] Danya You, PA [facility] [place] [address] [address] Delicia George, PT [address] [address] 04/09/2024 3:15 PM CDT Therapy Visit [address] [address] Danya You, PA [address] [address] Charis Chacon, [facility] [address] [place] [address] 04/09/2024 4:15 PM CDT Therapy Visit [address] [phone] Danya You, PA [address] [address] Delicia George, PT [facility] [address] [place] [address] 04/15/2024 9:30 AM CDT Therapy Visit [address] [address] Danya You, PA [address] [address] Danya Restrepo, WAREHOUSE AND RECEIVING SUPERVISOR 04/23/2024 2:30 PM CDT Therapy Visit [address] [phone] Danya You, PA [address] [place] [address] Charis Chacon, JUAN [facility] [address] [place] [address] 05/05/2024 2:30 PM CDT Office Visit [facility] [address], [address] [place] [phone] Rohit Barcenas MD 420 [facility] 295 [place], [place] [address] 06/23/2024 11:00 AM CDT Virtual Visit [facility] [address] [place] [address] Kristin Vázquez, [facility] 6[address] [place] [address] 06/30/2024 2:00 PM CDT Virtual Visit [facility] [address] [place] [address] Kristin Vázquez, [facility] [address] [place] [address] documented as of this encounter Visit Diagnoses Not on filedocumented in this encounter Additional Health Concerns Assessment Noted Time PHQ-9 Depression Total Score: 14 024 9:33 AM CDT documented as of this encounter Care Teams Librarian School Relationship Specialty Start Date End Date Winston Villatoro OD [facility] [address] [facility] [address] [place] [id number] PCP - Ophthalmology Ophthalmology 02/11/13 Denise Woodson Ra, SHIFTMAN ELECTRICAL APPRENTICE [address] [address] [place] [id number] PCP - General Family Practice 09/21/20 Denise Woodson Ra, APRN ELECTRICAL APPRENTICE [address] [place] [address] Assigned PCP 07/17/20 Usha Simon APRN ELECTRICAL APPRENTICE [address] [address] Nurse Practitioner Neurological Surgery 01/24/24 Dangelo [place] MD 1650 [facility] 200 [place] [address] Neurology 01/27/24 Usha Simon APRN ELECTRICAL APPRENTICE [address] [address] Assigned Neuroscience Provider 02/06/24 Anastasia Stearns RN Lead Transportation Maintenance Operator 02/06/24 documented as of this encounter
--- OUTSIDE RECORDS SUMMARY | 2024-02-22 15:21 | XMS_ITS | Encounter Summary ---
Author Organization [facility] Address [address] [place] [address]. [place] [address] Care Team Providers Care Butter Fat Tester Name Role Phone Winston Villatoro OD Unavailable Denise Woodson Ra, APRN BICYCLE REPAIRER Unavailable [phone]- [phone] Denise Woodson Ra SURGICAL INSTRUMENT MAKER BICYCLE REPAIRER Primary Care Provid er Usha Simon APRN BICYCLE REPAIRER Unavailable [phone] Dangelo Salinas MD Unavailable Usha Simon APRN BICYCLE REPAIRER Unavailable [phone] Anastasia Stearns RN Unavailable [phone] Reason for Visit * Rehab Therapy Integrated Services (Routine) - Authorized Specialty Diagnoses / Procedures Referred By Contac t Referred To Contact Diagnoses Cerebrovascular accident (CVA), unspecified mechanism (H) [address] [address] Referral ID Status Reason Start Date Expiration Date V isits Requested Visits Authorized [id number] Authorized 09/16/2023 09/15/2024 365 365 Encounter Details Date Type Department Care Team (Late st Contact Info) Description 02/14/2024 12:45 PM CDT Therapy Visit [address] [phone] Danya You, AMAIRANI [address] [place] [address] Isabel Beaulieu, OTR [facility] [address] [place], [place] [id number] Cerebrovascular accident (CVA), unspecified mechanism (H) (Primary [...] Info) Description 02/26/2024 1:40 PM CDT Appointment [facility] Center Imaging [address] [facility] [address] [place] [address] Denise Woodson Ra, SURGICAL INSTRUMENT MAKER BICYCLE REPAIRER [address] [place] [address] 02/26/2024 2:15 PM CDT Therapy Visit [facility] Rehabilitation Services [address] [address] Danya You, PA [address] [place] [address] Charis Chacon, SCIENTIFIC ADVISOR [facility] [address] [place] [address] 02/26/2024 3:00 PM CDT Therapy Visit [facility] 150 [place] [address] Danya You, AMAIRANI [address] [place] [address] Isabel Beaulieu, OTR [facility] [address] [place] [address] 02/27/2024 4:45 PM CDT Therapy Visit [address] [phone] Danya You, PA [address] [place], [place] [address] Vanessa Duggan, PT 03/05/2024 1:30 PM CDT Therapy Visit [address] [phone] Danya You, PA [address] [place] [address] Isabel Beaulieu, OTR [facility] [address] [place] [address] 03/05/2024 3:15 PM CDT Therapy Visit [facility] [address] [place] [address] Danya You, PA [address] [place] [address] Charis Chacon, JUAN [facility] [address] [place] [address] 03/05/2024 4:15 PM CDT Therapy Visit [facility] [address] [place] [phone] Danya You PA [address] [place] [address] Delicia George, PT [facility] [address] [place] [address] 03/11/2024 2:15 PM CDT Therapy Visit [address] [phone] Danya You, AMAIRANI [address] [place] [address] 302294 Isabel Beaulieu, OTR [address] [address] 03/11/2024 3:00 PM CDT Therapy Visit [address] [phone] Danya You, PA [address] [address] Charis Chacon, JUAN [facility] [address] [place] [address] 03/11/2024 4:15 PM CDT Therapy Visit [address] [phone] Danya You PA [address] [place] [address] 705234 Delicia George, PT [facility] [address] [place] [address] 03/17/2024 10:00 AM CDT Office Visit [facility] [address] [place] [phone] Denise Woodson Ra, SURGICAL INSTRUMENT MAKER BICYCLE REPAIRER [address] [place], [place] 5745[address] 03/17/2024 1:30 PM CDT Therapy Visit [address] [phone] Danya You, AMAIRANI Muller[address] [place] [address] Isabel Beaulieu, OTR [address] [address] 03/17/2024 2:30 PM CDT Therapy Visit [address] [phone] Danya You, PA [address] [place] [address] Charis Chacon SLP [facility] [address] [place] [address] 03/17/2024 4:00 PM CDT Therapy Visit [address] [phone] Danya You, AMAIRANI [address] [place] [address] Vanessa Duggan, PT 03/23/2024 10:30 AM CDT Office Visit [facility] [address] [place] [address] Denise Woodson Ra, SURGICAL INSTRUMENT MAKER BICYCLE REPAIRER [address] [place], [place] [address] 03/26/2024 1:30 PM CDT Therapy Visit [facility] [address] [place] [phone] Danya You, AMAIRANI 24[address] [facility] [address] [address] 5[address]84 Isabel Beaulieu, OTR [facility] 150 [place] [address] 03/26/2024 2:30 PM CDT Therapy Visit [address] [phone] Danya You, PA [facility] [address] 610624 Charis Chacon, SCIENTIFIC ADVISOR [facility] [address] [place] [address] 03/26/2024 3:30 PM CDT Therapy Visit [address] [phone] Danya You, PA 24[address] [facility] [address] 869774 Delicia George, PT [facility] [address] [place] [address] 8220[address] 04/02/2024 2:15 PM CDT Therapy Visit [address] [phone] Danya You, PA [address] [place] [address] Isabel Beaulieu, OTR [address] [address] 04/02/2024 3:15 PM CDT Therapy Visit [address] [phone] Danya You, PA 7890 [facility] SOTO [address] [place] [address] 721304 Charis Chacon, JUAN [facility] [address] [place] [address] 04/02/2024 4:15 PM CDT Therapy Visit [address] [address] Danya You, PA [address] [place] [address] 056044 Delicia George, PT [facility] [address] [place] [address] 04/09/2024 3:15 PM CDT Therapy Visit [address] [phone] Danya You, PA [address] [place] [address] 0077[address] Charis Chacon, JUAN [facility] [address] [place] [address] 04/09/2024 4:15 PM CDT Therapy Visit [address] [address] Danya You, PA [address] [place] [address] Delicia George, PT [facility] [address] [address] 04/15/2024 9:30 AM CDT Therapy Visit [address] [phone] Danya You PA [address] [place] [address] Danya Restrepo SLP 04/23/2024 2:30 PM CDT Therapy Visit [address] [address] Danya You PA 2450 [facility] [address] [place] [address] Charis Chacon, JUAN [facility] [address] [place] [address] 05/05/2024 2:30 PM CDT Office Visit [facility] [address], [address] [place] [address] Rohit Barcenas MD [address] [place] [address] 295 [place] [address] 06/23/2024 11:00 AM CDT Virtual Visit [facility] Mental [facility] [address] [facility] [place] [address] Gurpreet Kristin M, [facility] [address] [facility] [place] [address] 06/30/2024 2:00 PM CDT Virtual Visit [facility] Mental Health & Addiction [facility] [address] [facility] [place] [address] Kristin Vázquez, [facility] [address] [facility] [place] [address] documented as of this encounter Visit Diagnoses Diagnosis Cerebrovascular accident (CVA), unspecified mechanism (H)- Primary documented in this encounter Additional Health Concerns Assessment Noted Time PHQ-9 Depression Total Score: 16 024 3:27 PM CDT documented as of this encounter Care Teams Butter Fat Tester Relationship Specialty Start Date End Date Winston Villatoro OD [facility] 701 [facility] [address] [place] [address] PCP - Ophthalmology Ophthalmology 02/11/13 Denise Woodson Ra, APRN BICYCLE REPAIRER [address] [address] [address] PCP - General Family Practice 09/21/20 Denise Woodson Ra, APRN BICYCLE REPAIRER [address] [address] [address] Assigned PCP 07/17/20 Usha Simon APRN BICYCLE REPAIRER [address] [place] [address] [address] Nurse Practitioner Neurological Surgery 01/24/24 Dangelo Salinas MD [address] [place] [address] Neurology 01/27/24 Usha Simon APRN BICYCLE REPAIRER [id number] [place] [address] Assigned Neuroscience Provider 02/06/24 Anastasia Stearns, RN Lead Weight Tester 02/06/24 documented as of this encounter
--- OUTSIDE RECORDS SUMMARY | 2024-02-22 15:21 | XMS_ITS | Encounter Summary ---
Author Organization [facility] Address [address] [place] [address]. [place] [address] Care Team Providers Care Manager Renewable Energy Name Role Phone Winston Villatoro OD Unavailable [phone] Denise Woodson Ra, APRN PATIENT COORDINATOR Unavailable [phone] Denise Woodson Ra SANDWICH BOARD CARRIER PATIENT COORDINATOR Primary Care Provid er Usha Simon APRN PATIENT COORDINATOR Unavailable [phone] Dangelo Salinas MD Unavailable Usha Simon APRN PATIENT COORDINATOR Unavailable [phone] Anastasia Stearns RN Unavailable [phone] Reason for Visit * Rehab Therapy Integrated Services (Routine) - Authorized Specialty Diagnoses / Procedures Referred By Contac t Referred To Contact Diagnoses Cerebrovascular accident (CVA), unspecified mechanism (H) [address] [address] Referral ID Status Reason Start Date Expiration Date V isits Requested Visits Authorized [id number] Authorized 09/16/2023 09/15/2024 365 365 Encounter Details Date Type Department Care Team (Latest Contact Info) Description 02/14/2024 2:45 PM CDT Therapy Visit [address] [phone] Danya You, AMAIRANI [address] [place] [address] Maria Eugenia Nguyen, PT [address] [place] [address] Cerebrovascular accident (CVA), unspecified mechanism (H) (Primary [...] Appointment [facility] Specialty Care Center Imaging [address] [place] [phone] Denise Woodson Ra, SANDWICH BOARD CARRIER PATIENT COORDINATOR [address] [facility] [place] [address] 02/26/2024 2:15 PM CDT Therapy Visit [facility] Rehabilitation Services [address] [address] Danya You PA [facility]0 [address] [place] [address] Charis Chacon, JUAN [facility] [address] [place] [address] 02/26/2024 3:00 PM CDT Therapy Visit [facility] 150 [place] [address] Danya You PA 2450 [facility] 213 [place] [address] Isabel Beaulieu, OTR [facility] 150 [place] [address] 02/27/2024 4:45 PM CDT Therapy Visit [address] [phone] Danya You, PA 2450 [facility] 213 [place], [place] 8[address] Vanessa Duggan, GALINA 03/05/2024 1:30 PM CDT Therapy Visit [facility] 150 [place] [address] Danya You, AMAIRANI 2450 [facility] [address] [place] [address] Isabel Beaulieu, OTR [address] [address] 03/05/2024 3:15 PM CDT Therapy Visit [facility] 150 [place] [address] Danya You, AMAIRANI 2450 [facility] [address] [place] [address] Charis Chacon, JUAN [facility] [address] [place] [address] 03/05/2024 4:15 PM CDT Therapy Visit [address] [phone] Danya You, AMAIRANI [facility] [address] [address] Delicia George, PT [facility] [address] [place] [address] 03/11/2024 2:15 PM CDT Therapy Visit [address] [phone] Danya You, AMAIARNI [facility]0 [address] 2695[address] Isabel Beaulieu, OTR [address] [address] 03/11/2024 3:00 PM CDT Therapy Visit [address] [phone] Danya You, PA [address] [place] [address] Charis Chacon, JUAN [facility] [address] [place] [address] 03/11/2024 4:15 PM CDT Therapy Visit [address] [phone] Danya You, PA [address] [place] [address] 896464 Delicia George, PT [facility] 9 [place] [address] 03/17/2024 10:00 AM CDT Office Visit [facility] [address] [place] [address] Denise Woodson Ra, SANDWICH BOARD CARRIER [facility] [address] [place], [place] 7[address] 03/17/2024 1:30 PM CDT Therapy Visit [address] [phone] Danya You, PA 2450 [facility] [address] [address] Isabel Beaulieu, OTR [address] [address] 03/17/2024 2:30 PM CDT Therapy Visit [address] [phone] Danya You, PA [facility]0 [address] [address] Charis Chacon, JUAN [facility] [address] [place] [address] 03/17/2024 4:00 PM CDT Therapy Visit [address] [phone] Danya You, PA [facility] [address] 451784 Vanessa Duggan, PT 03/23/2024 10:30 AM CDT Office Visit [facility] [address] [place] [address] Denise Woodson Ra, APRN PATIENT COORDINATOR [address] [place] [address] 03/26/2024 1:30 PM CDT Therapy Visit [address] [phone] Danya You, PA [address] 9207[address] Isabel Beaulieu, OTJah [address] [address] 03/26/2024 2:30 PM CDT Therapy Visit [address] [phone] Danya You, PA [address] [place] [address] 85[address] Charis Chacon, JUAN [facility] [address] [place] [address] 03/26/2024 3:30 PM CDT Therapy Visit [address] [phone] Danya You, PA 2450 [facility] [address] 33[address] Delicia George, PT [facility] [address] [place] [address] 04/02/2024 2:15 PM CDT Therapy Visit [address] [phone] Danya You, AMAIRANI [facility]0 [address] [address] Isabel Beaulieu, OTR [address] [address] 04/02/2024 3:15 PM CDT Therapy Visit [address] [phone] Danya You, PA [facility]0 [address] [address] Charis Chacon SLP [facility] [address] [place] [address] 04/02/2024 4:15 PM CDT Therapy Visit [address] [phone] Danya You, PA [address] [place] [address] 820974 Delicia George, PT [facility] [address] [place] [address] 04/09/2024 3:15 PM CDT Therapy Visit [address] [phone] Danya You PA [address] [place] [address] 510284 Charis Chacon, UJAN [facility] [address] [place] [address] 04/09/2024 4:15 PM CDT Therapy Visit [address] [address] Danya You, AMAIRANI [address] [address] Delicia George, PT [facility] [address] [address] 04/15/2024 9:30 AM CDT Therapy Visit [address] [address] Danya You, AMAIRANI [address] [address] Danya Restrepo, JUAN 04/23/2024 2:30 PM CDT Therapy Visit [address] [address] Danya You, AMAIRANI [facility] [place] [address] [address] Charis Chacon, JUAN [facility] [address] [place] [address] 05/05/2024 2:30 PM CDT Office Visit [facility] [address], [address] [place] [address] Rohit Barcenas MD [address] [place] [address] 295 [place], [place] [address] 06/23/2024 11:00 AM CDT Virtual Visit [facility] Mental [facility] [address] [place] [address] [place] [address] Kristin Vázquez, [facility] [address] [facility] [place] [address] 06/30/2024 2:00 PM CDT Virtual Visit [facility] Mental Health & Addiction Group [facility] [address] [place] [address] [place] [address] Kristin Vázquez, [facility] [address] [facility] [place] [address] documented as of this encounter Visit Diagnoses Diagnosis Cerebrovascular accident (CVA), unspecified mechanism (H)- Primary documented in this encounter Additional Health Concerns Assessment Noted Time PHQ-9 Depression Total Score: 16 024 3:27 PM CDT documented as of this encounter Care Teams Manager Renewable Energy Relationship Specialty Start Date End Date Winston Villatoro, AMELIE [facility] 701 [facility] [address] [place] [address] PCP - Ophthalmology Ophthalmology 02/11/13 Denise Woodson Ra, APRN PATIENT COORDINATOR [address] [address] [address] PCP - General Family Practice 09/21/20 Denise Woodson Ra, APRN PATIENT COORDINATOR [address] [address] [address] Assigned PCP 07/17/20 Usha Simon APRN PATIENT COORDINATOR [address] [place], [place] [address] [address] Nurse Practitioner Neurological Surgery 01/24/24 Dangelo Salinas MD [address] [place] [address] Neurology 01/27/24 Usha Simon APRN PATIENT COORDINATOR 9 [facility]2121[place] [address] Assigned Neuroscience Provider 02/06/24 Anastasia Stearns, RN Lead Business Professor 02/06/24 documented as of this encounter
--- OUTSIDE RECORDS SUMMARY | 2024-02-22 15:21 | XMS_ITS | Encounter Summary ---
Author Organization [facility] Address [address] [place] [address]. [place] [address] Care Team Providers Care Supervisor Ticket Sales Name Role Phone Winston Villatoro OD Unavailable [phone] Denise Woodson Ra, APRN CHILDBIRTH EDUCATOR Unavailable [phone] Denise Woodson Ra FLYING SQUAD SALESPERSON CHILDBIRTH EDUCATOR Primary Care Provid er Usha Simon APRN CHILDBIRTH EDUCATOR Unavailable [phone] Dangelo Salinas MD Unavailable Usha Simon APRN CHILDBIRTH EDUCATOR Unavailable [phone] Anastasia Stearns RN Unavailable [phone] Reason for Visit * Rehab Therapy Integrated Services (Routine) - Authorized Specialty Diagnoses / Procedures Referred By Contac t Referred To Contact Diagnoses Cerebrovascular accident (CVA), unspecified mechanism (H) [address] [address] Referral ID Status Reason Start Date Expiration Date V isits Requested Visits Authorized [id number] Authorized 09/16/2023 09/15/2024 365 365 Encounter Details Date Type Department Care Team (Latest Contact Info) Description 02/14/2024 2:00 PM CDT Therapy Visit [address] [phone] Danya You, AMAIRANI [address] [place] [address] Charis Chacon SLP [facility] [address] [place], [place] [address] Cerebrovascular accident (CVA), unspecified mechanism (H) (Primary [...] Info) Description 02/26/2024 1:40 PM CDT Appointment [facility] [address] [facility] [address] [place] [phone] Denise Woodson Ra, FLYING SQUAD SALESPERSON CHILDBIRTH EDUCATOR [address] [place] [address] 02/26/2024 2:15 PM CDT Therapy Visit [facility] [address] [address] Danya You, AMAIRANI [address] [place] [address] Charis Chacon SLP [facility] [address] [place] [address] 02/26/2024 3:00 PM CDT Therapy Visit [facility] [address] [place] [phone] Danya You, AMAIRANI [address] [place] [address] Isabel Beaulieu, OTR [facility] [address] [place] [address] 02/27/2024 4:45 PM CDT Therapy Visit [address] [phone] Danya You, PA [address] [place], [place] [address] Vanessa Duggan, PT 03/05/2024 1:30 PM CDT Therapy Visit [address] [phone] Danya You, PA [address] [place] [address] Isabel Beaulieu, OTR [address] [address] 03/05/2024 3:15 PM CDT Therapy Visit [address] [phone] Danya You, PA [facility] [place] [address] Charis Chacon, TROUBLE DISPATCHER [facility] [address] [place] [address] 03/05/2024 4:15 PM CDT Therapy Visit [address] [phone] Danya You PA [address] [place] [address] Delicia George, PT [facility] [address] [place] [address] 03/11/2024 2:15 PM CDT Therapy Visit [address] [phone] Danya You, AMAIRANI [address] [place] [address] Isabel Beaulieu, OTR [address] [address] 03/11/2024 3:00 PM CDT Therapy Visit [address] [phone] Danya You, PA [address] [address] Charis Chacon, [facility] [address] [place] [address] 03/11/2024 4:15 PM CDT Therapy Visit [address] [phone] Danya You PA [address] [place] [address] Delicia George, PT [facility] [address] [place] [address] 03/17/2024 10:00 AM CDT Office Visit [facility] [address] [place] [phone] Denise Woodson Ra, FLYING SQUAD SALESPERSON CHILDBIRTH EDUCATOR [address] [place], [place] [phone] 03/17/2024 1:30 PM CDT Therapy Visit [address] [phone] Danya You, AMAIRANI Muller[address] [place] [address] Isabel Beaulieu, OTJah [address] [address] 03/17/2024 2:30 PM CDT Therapy Visit [address] [phone] Danya You, PA [address] [place] [address] Charis Chacon, JUAN [facility] [address] [place] [address] 03/17/2024 4:00 PM CDT Therapy Visit [address] [phone] Danya You, AMAIRANI [address] [place] [address] Vanessa Duggan, PT 03/23/2024 10:30 AM CDT Office Visit [facility] [address] [place] [phone] Denise Woodson Ra, APRN CNP [address] [place], [place] [phone] 03/26/2024 1:30 PM CDT Therapy Visit [address] [phone] Danya You, AMAIRANI [address] 7[address] Isabel Beaulieu, OTR [facility] [address] [place] [address] 03/26/2024 2:30 PM CDT Therapy Visit [address] [phone] Danya You, AMAIRANI [address] [facility] [address] 2399[address] Charis Chacon, [facility] [address] [place] [address] 03/26/2024 3:30 PM CDT Therapy Visit [address] [phone] Danya You, AMAIRANI [address] [phone] Delicia George, PT [facility] [address] [place] [address] 04/02/2024 2:15 PM CDT Therapy Visit [address] [phone] Danya You, PA [address] [place] [address] Isabel Beaulieu, OTR [address] [address] 04/02/2024 3:15 PM CDT Therapy Visit [address] [phone] Danya You, AMAIRANI [address] [place] [address] Charis Chacon, JUAN [facility] [address] [place] [address] 04/02/2024 4:15 PM CDT Therapy Visit [address] [phone] Danya You, PA [address] [place] [address] Delicia George, PT [facility] [address] [place] [address] 04/09/2024 3:15 PM CDT Therapy Visit [address] [phone] Danya You, PA [address] [place] [id number] Charis Chacon, JUAN [facility] [address] [place] [address] 04/09/2024 4:15 PM CDT Therapy Visit [address] [phone] Danya You, PA [address] [place] [address] Delicia George, PT [facility] [address] [address] 04/15/2024 9:30 AM CDT Therapy Visit [address] [phone] Danya You, PA [address] [facility] [address] [place] [address] Danya Restrepo SLP 04/23/2024 2:30 PM CDT Therapy Visit [address] [phone] Danya You, PA [facility]0 [facility] [address] [place] [address] Charis Chacon, JUAN [facility] [address] [place] [address] 05/05/2024 2:30 PM CDT Office Visit [facility] [address], [address] [place] [address] Rohit Barcenas MD [address] [facility] [address] [place] [address] 06/23/2024 11:00 AM CDT Virtual [facility] [address] [facility] [place] [address] Kristin Vázquez, [facility] [address] [place] [address] 06/30/2024 2:00 PM CDT Virtual Visit [facility] [address] [facility] [place] [address] Kristin Vázquez, [facility] [address] [facility] [place] [address] documented as of this encounter Visit Diagnoses Diagnosis Cerebrovascular accident (CVA), unspecified mechanism (H)- Primary documented in this encounter Additional Health Concerns Assessment Noted Time PHQ-9 Depression Total Score: 16 024 3:27 PM CDT documented as of this encounter Care Teams Supervisor Ticket Sales Relationship Specialty Start Date End Date Winston Villatoro OD [facility] [address] [facility] [address] [place] [address] PCP - Ophthalmology Ophthalmology 02/11/13 Denise Woodson Ra, APRN CHILDBIRTH EDUCATOR [address] [place] [address] PCP - General Family Practice 09/21/20 Denise Woodson Ra, APRN CHILDBIRTH EDUCATOR [address] [place] [address] Assigned PCP 07/17/20 Usha Simon APRN CHILDBIRTH EDUCATOR [address] [place] [address] [address] Nurse Practitioner Neurological Surgery 01/24/24 Dangelo Salinas MD [address] [place] [address] Neurology 01/27/24 Usha Simon APRN CHILDBIRTH EDUCATOR [address] [facility] [place] [address] Assigned Neuroscience Provider 02/06/24 Anastasia Stearns, RN Lead Industrial Maintenance Mechanic 02/06/24 documented as of this encounter
--- OUTSIDE RECORDS SUMMARY | 2024-02-22 15:21 | XMS_ITS | Encounter Summary ---
Author Organization [facility] Address [address] [place] [id number] Care Team Providers Care Rn Diabetes Educator Name Role Phone Winston Villatoro OD Unavailable [phone] Denise Woodson Ra, APRN [employer] ROB[employer]IST Unavailable [phone] Denise Woodson Ra MANUFACTURING INTERN [employer] ROBOTICIST Primary Care Provid er Usha Simon APRN [employer] ROBOTICIST Unavailable [phone]- [phone] Dangelo Salinas MD Unavailable Usha Simon APRN [employer] ROBOTICIST Unavailable [phone]- [phone] Anastasia Stearns RN Unavailable [phone] Reason for Visit * Reason Comments Dizziness Encounter Details Date Type Department Care Team (Late st Contact Info) Description 02/13/2024 12:11 PM CDT - 02/13/2024 3:28 PM CDT Emergency [facility] Emergency Dept [address] [place] [address] Dangelo Sylvester DO [facility] [address] [facility] [id number] Dizziness Discharge Disposition: Home or Self Care Social [...] Mass Index 31.97 02/13/2024 12:01 PM CDT documented in this encounter Discharge Instructions * Discharge Instructions* Dangelo Sylvester DO - 02/13/2024 2:43 PM CDT What do you do next: Continue your home medications unless we have specifically changed them If medications were prescribed today, take these as directed. Follow up as indicated below When do you return: Review your discharge papers for specifics on reasons to return. Thank you for allowing us to care for you today. * Attachments The following attachments cannot be sent through Care Everywhere. * Dizziness (Danish) documented in this encounter Medications at Time of Discharge Medication Sig Dispensed Refills Start Date End Date acetaminophen (TYLENOL) 500 MG tabletIndications:Fib romyalgia,Pain of right upper extremity Take 1-2 tablets (500-1,000 mg) by mouth 3 times daily as needed for mild pain or headaches 01/24/2024 albuterol (PROAIR HFA/PROVENTIL HFA/VENTOLIN HFA) 108 (90 Base) MCG/ACT inhalerIndications:Mo derate persistent asthma without complication Inhale 2 puffs into the lungs every 4 hours as needed for shortness of breath / dyspnea or wheezing 1 Inhaler 3 07/13/2020 BREO ELLIPTA 200-25 MCG/INH InhalerIndications:Mo derate persistent asthma without complication INHALE 1 PUFF INTO THE LUNGS DAILY 3 each 1 02/22/2022 cetirizine (ZYRTEC) 10 MG tablet Take 10 mg by mouth daily Lidocaine (LIDOCARE) 4 % PatchIndications:Fibr omyalgia,Pain of right upper extremity Place 1 patch onto the skin every 24 hours To prevent lidocaine toxicity, patient should be patch free for 12 hrs daily. 01/22/2024 magnesium oxide 200 MG TABS Ok to take magnesium supplement of your preference 01/24/2024 meclizine (ANTIVERT) 25 MG tablet Take 1 tablet (25 mg) by mouth 3 times daily as needed for dizziness 20 tablet 02/13/2024 methyl salicylate-menthol (ICY HOT) ointmentIndications:F ibromyalgia,Pain of right upper extremity Apply topically every 6 hours as needed (pain) 01/22/2024 psyllium (METAMUCIL) 28.3 % packet Take 1 packet by mouth daily senna-docusate (SENOKOT-S/PERICOLACE ) 8.6-50 MG tabletIndications:Oth er constipation Take 2 tablets by mouth 2 times daily as needed for constipation 01/22/2024 traZODone (DESYREL) 50 MG tabletIndications:Ins omnia, unspecified type Take 2 tablets (100 mg) by mouth At Bedtime 180 tablet 3 07/27/2021 aspirin (ASA) 325 MG EC tabletIndications:Cer ebrovascular accident (CVA), unspecified mechanism (H) Take 1 tablet (325 mg) by mouth daily 30 tablet 01/24/2024 02/14/2024 levETIRAcetam (KEPPRA) 750 MG tabletIndications:His tory of seizure Take 1 tablet (750 mg) by mouth 2 times daily 60 tablet 01/24/2024 02/14/2024 rosuvastatin (CRESTOR) 20 MG tabletIndications:Cer ebrovascular accident (CVA), unspecified mechanism (H) Take 1 tablet (20 mg) by mouth at bedtime 30 tablet 01/24/2024 02/14/2024 documented as of this encounter Consult Notes * Kaur Mason APRN [employer] - 02/13/2024 12:16 PM CDT Images from the original note were not included. [facility] Stroke Code Note History of Present Illness Chief Complaint: Dizziness Alcon Zamora is a 48 year old female with PMH of recent multifocal infarcts felt secondary to DSA (01/09/24), dural sinus AV fistula, Ehler Danlo's syndrome, cervical disc herniation, possible seizures on Keppra. She presents to the emergency department for evaluation of vertigo. Per patient last known well was bedtime yesterday evening. She then awoke around 0700 and noticed that she had a headache. She rolled to her side to grab her glasses off of the side table and immediately developed room spinning dizziness. Symptoms abated for a bit, until she will to the other side and symptoms returned. She then had onset of nausea and feeling like she would vomit. She is very clear that symptomsare specifically triggered by head movements and having vertigo resolves if she keeps her head still. On tele exam she has no evidence of examination hemiparesis, ataxia in upper or lower extremities or cranial nerve deficits. She is able to transfer between gurneys without significant difficulty. Past Medical History Preadmission antithrombotic regimen: ASA 325mg She has extensive recent neurological history, summarized from stroke code note 02/04/24: On 01/04/24, the patient presented to [facility] ED for evaluation of persistent headache and left-sided, pulsatile tinnitus. CT head and CT angiogram at that time revealed a left sigmoid dural AV fistula and the patient was referred to [facility] for digital subtraction angiography. 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 Following the procedure, she was noted to have poor coordination and weakness of the RUE. CT/CTA were negative for acute findings, and per patient preference, discharged to home on aspirin 81mg. On 01/12, she called into her [facility] team and noted she was struggling to use her right arm while at work stating it felt uncoordinated and heavy. MRI brain was ordered and performed as an outpatient the which revealed bilateral punctate acute infarcts in the frontal and parietal lobes bilaterally. She was recommended to increase to aspirin 325mg and referral was made to outpatient PT/OT. She presented again to [facility] ER on 01/13 for continued frustration about her right arm weakness and poor coordination. CT head/CTA were repeated and unchanged but she was admitted for further workup. While inpatient there was concern of focal seizure with secondary generalization, although patient reportedly recalled details of the entire event. Following this possible seizure, she was started on Keppra 750 mg twice daily. Assessment and Plan 1. Vertigo precipitated by head movements. Highly suspect peripheral etiology such as BPPV Intravenous Thrombolysis Not given due to: - head trauma/stroke within the past 3 months - minor/isolated/quickly resolving symptoms Endovascular Treatment Not initiated due to absence of proximal vessel occlusion Plan: -brain MRI without contrast; please page stroke neurology if infarct is identified for further recommendations -Symptomatic treatment of presumed BPPV per primary team Kaur Mason APRN [employer] ROB[employer]ICIST Vascular Neurology To page me or covering stroke neurology senior stereo compiler team lead, click here: [employer] Choose Stores [employer] tab at top, then select NEUROLOGY/ALL SITES from middle drop- down box, press Enter, then look for stroke or telestroke for your site. Imaging/Labs (personally reviewed CT/CTA) CT head: No hemorrhage or other acute findings CTA head/neck: No LVO, significant stenosis or dissection Physical Examination BP: (!) 164/94 Pulse: 75 Resp: 18 Temp: 97.7 ??F (36.5 ??C) Temp src: Temporal SpO2: 99 % O2 Device: None (Room air) Weight: 98.2 kg (216 lb 7.9 oz) Wt Readings from Last 2 Encounters: 02/13/24 98.2 kg (216 lb 7.9 oz) 02/06/24 98.1 kg (216 lb 3.2 oz) Neuro Exam Mental Status: alert, oriented x 3, follows commands, speech clear and fluent Cranial Nerves: EOMI with normal smooth pursuit, facial movements symmetric, hearing not formally tested but intact to conversation, no dysarthria, tongue protrusion midline Motor: no abnormal movements, able to move all limbs antigravity spontaneously with no signs of hemiparesis observed Reflexes: unable to test (telestroke) Coordination: normal itkmxj-wi-bbuk and lqiz-cx-vvus bilaterally without dysmetria Station/Gait[facility] no [facility] difficutly Labs CBC Lab Results Component Value Date HGB 15.1 02/13/2024 HCT 44.8 02/13/2024 WBC 8.9 02/13/2024 PLT 206 02/13/2024 BMP Lab Results Component Value Date NA 138 02/04/2024 POTASSIUM 4.7 02/04/2024 CHLORIDE 101 02/04/2024 CO2 27 02/04/2024 BUN 15.0 02/04/2024 CR 0.9 02/04/2024 GLC 95 02/13/2024 TIFF 9.6 02/04/2024 INR INR Date Value Ref Range Status 02/04/2024 0.90 0.85 - 1.15 Final 01/21/2024 0.92 0.85 - 1.15 Final 01/19/2024 0.87 0.85 - 1.15 Final Data Stroke Code Data (for stroke code with tele) Stroke code activated 02/13/24 1211 First stroke provider response 02/13/24 1214 Video start time 02/13/24 1232 Video end time 02/13/24 1245 Last known normal 02/12/24 (bedtime) Time of discovery (or onset of symptoms) 02/13/[address] read by Stroke Neuro Provider 02/13/24 1234 Was stroke code de-escalated? Yes 02/13/24 1245 Telestroke Service Details Type of service telemedicine diagnostic assessment of acute neurological changes Reason telemedicine is appropriate patient requires assessment with a specialist for diagnosis and treatment of neurological symptoms Mode of transmission secure interactive audio and video communication per Philomena Originating site (patient location) [facility] Distant site (provider location) [facility] Clinically Significant Risk Factors Present on Admission # Drug Induced Platelet Defect: home medication list includes an antiplatelet medication # Obesity: Estimated body mass index is 31.97 kg/m?? as calculated from the following: Height as of this encounter: 1.753 m (5' 9). Weight as of this encounter: 98.2 kg (216 lb 7.9 oz). # Financial/Environmental Concerns: # Asthma: noted on problem list Time Spent on this Encounter Billing: I personally examined and evaluated the patient today. At the time of my evaluation and management the patient was critical condition today due to stroke code. I personally managed stroke code. Silva decisions made today included need for advanced neuroimaging and/or infication for acute stroke treatments. I spent a total of 40 minutes providing critical care services, evaluating the patient, directing care and reviewing laboratory values and radiologic reports. Associated attestation - Sonia Kan MD - 02/13/2024 7:39 PM CDT Stroke-Neurocritical Care Attending Attestation I have reviewed and discussed with the MONICA their history, physical and plan for Alcon A Douglas. I did not participate in a shared visit by interviewing or examining the patient and this should be billed as an advanced practice provider only visit Sonia Kan MD Vascular Neurology To page me or covering stroke neurology senior stereo compiler team lead, click here: [employer] Choose Stores [employer] tab at top, then search dropdown box for Neurology Adult, select location, pressEnter, then look for stroke/neuro ICU/telestroke. documented in this encounter ED Notes * Airam Nielsen RN - 02/13/2024 12:11 PM CDT Bed: ED30 Expected date: Expected time: Means of arrival: Comments: triage * Airam Nielsen RN - 02/13/2024 11:59 AM CDT Pt states she is currently recovering from a stoke. Pt states that when she woke up this morning [id number] when she felt extremely off balance and like the room was spinning and had a headache which she states is a 6/10. She states that she had to use her walker which she has not been using for over 2 weeks due to the dizziness. Prior CVA was 01/08 and she is currently on ASA. She states she went tobed last night at approximately 2100. Triage Assessment (Adult) Row Name 02/13/24 1159 Triage Assessment Airway WDL WDL Respiratory WDL Respiratory WDL WDL Cardiac WDL Cardiac WDL WDL * Dangelo Sylvester DO - 02/13/2024 11:53 AM CDT Emergency Department Note History of Present Illness Chief Complaint: Dizziness CRICKET Zamora is a 48 year old female who presents due to dizziness and headache. The patient states that she had a stroke in December of this year. She was able to be discharged on 325 mg of aspirin daily. She initially had right- sided symptoms but was able to rehab to normal strength and notes that she has not needed her walker in the last 2 weeks. The patient states that she went to bed last night at 9 PM in her normal state of health. This morning, around 7 AM, she rolled over to get her glasses from her nightstand and in doing so felt incredibly dizzy. She also noted a bifrontal headache that has not relieved since. She then rolled the other way to see if it would go away but the symptoms worsened. She then contacted her who wondered if she was dehydrated or hungry so the patient went down to her kitchen. She was able to ambulate but felt very unsteady and had to use her walker which she has not done for 2 weeks. She sat downin a chair for a while but did not feel much better and then began to feel somewhat tired so she dec ided to go try to lay down in bed. When her symptoms did not improve she then presented to the emergency department for evaluation. Independent Historian: None Review of External Notes ED provider note 02/04/24: left sided weakness/numbness DC Summary 01/26/24: Cerebral infarct of the frontal lobes, parietal lobes, left supramarginal gyrus, embolic in nature, likely procedural complication: Alcon Zamora is a 48 year old female with past medical history of Lizy-Danlos syndrome, mild persistent asthma, anxiety and depression, and fibromyalgia who presented for a planned catheter angiogram at [facility] for left sided pulsatile tinnitus, following procedure found to have multiple acute ischemic infarcts of the frontal lobes, parietal lobes and left supramarginal gyrus after procedure with associated right sided weakness and numbness, likely embolic in nature secondary to procedure complication, complicated by post-stroke seizures, admitted on 01/17/2024 at [facility] for acute inpatient rehabilitation. Discharged in setting of acute mental status change, concern for seizure, workup felt not consistent with seizure, episodes felt related to fatigue/stress. Functionally making progress with ongoing strength, balance, activity tolerance, and cognition below baseline, plan fo rhome with outpatient PT/OT/COIL BINDER. Past Medical History Medical History, Surgical History, Problem List, and Medications Reviewed in Epic Physical Exam Patient Vitals for the past 24 hrs: BP Temp Temp src Pulse Resp SpO2 Height Weight 02/13/24 1522 (!) 144/95 -- -- 89 -- 97 % -- -- 02/13/24 1515 (!) 144/95 -- -- -- -- 95 % -- -- 02/13/24 1500 133/83 -- -- 74 -- 100 % -- -- 02/13/24 1415 (!) 163/91 -- -- 71 -- 100 % -- -- 02/13/24 1400 (!) 157/85 -- -- 81 -- 100 % -- -- 02/13/24 1345 (!) 146/84 -- -- 87 -- 95 % -- -- 02/13/24 1315 (!) 143/85 -- -- 99 -- 95 % -- -- 02/13/24 1300 137/80 -- -- 75 -- 98 % -- -- 02/13/24 1245 125/84 -- -- 84 -- 100 % -- -- 02/13/24 1201 (!) 164/94 97.7 ??F (36.5 ??C) Temporal 75 18 99 % 1.753 m (5' 9) 98.2 kg (216 lb 7.9 oz) Physical Exam Constitutional: Vital signs reviewed as above. Eyes: PEERL, EOMI B/L Neck: No JVD noted. FROM Cardiovascular: normal rate, Regular rhythm and normal heart sounds. No murmur heard. Equal B/L peripheral pulses. Pulmonary/Chest: Effort normal and breath sounds normal. No respiratory distress. Patient has no wheezes. Patient has no rales. Gastrointestinal: Soft. There is no tenderness. Musculoskeletal/Extremities: No pitting edema noted. Normal tone. Neurological: No nystagmus noted Patient is alert and oriented to person, place, and time. Speech is fluent, cognition is normal. CN 2-12 intact (PERRL, EOMI, symmetric smile, equal eye squeeze and forehead raise, normal and equal sensation to bilateral forehead/cheek/chin, grossly equal hearing B/L, midline tongue protrusion with nl hpkr-ls-xzbj movement, normal shoulder shrug). RUE strength 5/5: assistant pressman, finger abd, wrist flex/ext, elbow flex/ext. LUE strength 5/5: assistant pressman, finger abd, wrist flex/ext, elbow flex/ext. RLE strength 5/5: ankle flex/ext, knee flex/ext, hip flex. LLE strength 5/5: ankle flex/ext, knee flex/ext, hip flex. Sensation equal in all 4 extremities. No arm drift. Cerebellar: The patient is able to perform odplce-bppf-igedlq, rapid pronation/supination, and hand rolling without issue. Right heel to left mast is normal. Left heel to right mast elicits acute dizziness and made the patient feel very symptomatic. Skin: Skin is warm and dry. There is no diaphoresis noted. Psychiatric: The patient appears calm. Diagnostics Laboratory: Imaging: Labs Ordered and Resulted from Time of ED Arrival to Time of ED Departure BASIC METABOLIC PANEL - Normal Result Value Sodium 140 Potassium 4.3 Chloride 103 Carbon Dioxide (CO2) 25 Anion Gap 12 Urea Nitrogen 19.0 Creatinine 0.70 GFR Estimate >90 Calcium 9.6 Glucose 97 INR - Normal INR 0.94 PARTIAL THROMBOPLASTIN TIME - Normal aPTT 26 TROPONIN T, HIGH SENSITIVITY - Normal Troponin T, High Sensitivity <6 HCG QUALITATIVE - Normal hCG Serum Qualitative Negative GLUCOSE BY METER - Normal GLUCOSE BY METER POCT 95 CBC WITH PLATELETS AND DIFFERENTIAL WBC Count 8.9 RBC Count 4.89 Hemoglobin 15.1 Hematocrit 44.8 MCV 92 MCH 30.9 MCHC 33.7 RDW 12.4 Platelet Count 206 % Neutrophils 66 % Lymphocytes 24 % Monocytes 5 % Eosinophils 4 % Basophils 1 % Immature Granulocytes 0 NRBCs per 100 WBC 0 Absolute Neutrophils 5.9 Absolute Lymphocytes 2.1 Absolute Monocytes 0.5 Absolute Eosinophils 0.3 Absolute Basophils 0.0 Absolute Immature Granulocytes 0.0 Absolute NRBCs 0.0 GLUCOSE MONITOR NURSING POCT MR Brain w/o Contrast Final Result Impression: 1. No acute intracranial pathology. 2. Several scattered nonspecific T2 hyperintense foci in cerebral white matter. Differentials include sequela of prior inflammatory/infectious or vascular insults. 3. Linear T1 and FLAIR hyperintensity with associated susceptibility in the inferior left parietal lobule, likely representing a DVA. FRAN ROBBINS MD SYSTEM ID: [id number] CTA Head Neck with Contrast Final Result IMPRESSION: 1. Head CTA demonstrates no aneurysm or stenosis of the major intracranial arteries. 2. Neck CTA demonstrates no stenosis of the major cervical arteries. Findings were discussed with Dr. Sylvester at 12:42 hours CDT. FRAN ROBBINS MD SYSTEM ID: [id number] CT Head w/o Contrast Final Result IMPRESSION: No acute intracranial pathology. FRAN ROBBINS MD SYSTEM ID: [id number] EKG ECG taken at 1251, ECG read at 1251 Sinus rhythm with occasional PVCs Possible left atrial enlargement Borderline ECG No significant change as compared to prior, dated 02/04/2024. Rate 81 bpm. DC interval 166 ms. QRS duration 84 ms. QT/QTc 358/415 ms. P-R-T axes 52 54 15. Independent Interpretation See ED course ED Course Medications Administered Medications iopamidol (ISOVUE-370) solution 67 mL (67 mLs Intravenous $Given 02/13/24 1231) And sodium chloride 0.9 % bag for CT scan flush use (80 mLs As instructed $Given 02/13/24 1231) prochlorperazine (COMPAZINE) injection 10 mg (10 mg Intravenous $Given 02/13/24 1258) diphenhydrAMINE (BENADRYL) injection 25 mg (25 mg Intravenous $Given 02/13/24 1257) sodium chloride 0.9% BOLUS 500 mL (0 mLs Intravenous Stopped 02/13/24 1521) Procedures Procedures Discussion of Management See ED Course Social Determinants of Health adding to complexity of care None ED Course ED Course as of 02/13/24 1524 Marii February 13, 2024 1218 D/W Kaur Mason NP with stroke neurology. 1241 D/W Dr. Robbins ([facility]): No evidence of acute infarct, hemorrhage, or large vessel occlusion. 1247 D/W Kaur from stroke neurology again. Patient notes she feeling somewhat better. These seemto be triggered by head movement. MRI brain (wo contrast) and if normal, can DC with general neurology follow up. 1249 Rechecked and updated patient. MRI pending. 1521 Rechecked and updated. Patient comfortable with discharge to home Medical Decision Making / Diagnosis [facility] Diagnoses: None Code Status: Prior [facility] Medical Decision Making: This 48-year-old female patient presents due to dizziness and headache. Please see the HPI and examfor specifics. A broad differential was considered though certainly a recurrent stroke was concerning given the patient's prior history. Tier 1 code stroke was called due to the patient's headache. Idiscussed the case with neurology and we proceeded with our workup. Fortunately, CT imaging was reassuring and there was no stroke, hemorrhage, or large vessel occlusion noted. Subsequent MRI did notreveal any acute infarct. There was mention of a possible developmental venous abnormality (DVA), but again no bleeding noted. The patient noted improvement of her headache with medication. At this point, I think that discharge to home is reasonable. I will prescribe meclizine and encouraged outpatient general neurology follow-up. She may always return with new or worsening symptoms. Critical Care: None. Disposition: See ED Course and [facility] ICD-10 Codes: ICD-10-CM 1. Dizziness R42 Discharge Medications: New Prescriptions MECLIZINE (ANTIVERT) 25 MG TABLET Take 1 tablet (25 mg) by mouth 3 times daily as needed for dizziness 02/13/2024 Dangelo Sylvester DO [employer] Dangelo Sylvester DO 02/13/24 1526 documented in this encounter Plan of Treatment Upcoming Encounters Date Type Department Care Team (Late st Contact Info) Description 02/26/2024 1:40 PM CDT Appointment [facility] [address] [place] [phone] Denise Woodson Ra, MANUFACTURING INTERN [employer] ROBOTICIST [address] [facility] [place] [address] 02/26/2024 2:15 PM CDT Therapy Visit [address] [phone] Danya You, AMAIRANI SOTO [address] [place] [id number] Charis Chacon, JUAN [facility] [address] [place] [address] 02/26/2024 3:00 PM CDT Therapy Visit [address] [phone] Danya You, PA [address]Darren SOTO [address] [place] [address] Isabel Beaulieu, JAIMIE [facility] [address] [place] [address] 02/27/2024 4:45 PM CDT Therapy Visit [facility] [address] [place] [phone] Danya You PA [address] MB [address] [place] [address] Vanessa Duggan, PT 03/05/2024 1:30 PM CDT Therapy Visit [address] [phone] Danya You, PA [address] [place] [address] Isabel Beaulieu, OTR [address] [address] 03/05/2024 3:15 PM CDT Therapy Visit [address] [phone] Danya You, PA [address] [place] [address] Charis Chacon, COIL BINDER [facility] [place] [address] [place] [address] 03/05/2024 4:15 PM CDT Therapy Visit [address] [phone] Danya You, PA [address] [facility] [address] [address] Delicia George, PT [facility] [address] [place] [address] 03/11/2024 2:15 PM CDT Therapy Visit [address] [phone] Danya You, PA [address] [address] Isabel Beaulieu, OTR [address] [address] 03/11/2024 3:00 PM CDT Therapy Visit [address] [phone] Danya You, PA [address] [place] [address] Charis Chacon, JUAN [facility] [place] [facility] [address] [place] [address] 03/11/2024 4:15 PM CDT Therapy Visit [address] [phone] [place], [place] [address] [address] [phone] Delicia George, PT [facility] [address] [place] [address] 03/17/2024 10:00 AM CDT Office Visit [facility] [id number] [place] [address] [phone] Denise Woodson Ra, MANUFACTURING INTERN [facility] [address] [place], [place] [phone] 03/17/2024 1:30 PM CDT Therapy Visit [address] [phone] Danya You, PA [address] [place] [address] [address] Isabel Beaulieu, OTR [address] [address] 03/17/2024 2:30 PM CDT Therapy Visit [facility] [address] [place] [phone] Danya You, PA 2450 [facility] [address] [place] [address] Charis Chacon, [facility] [address] [place] [address] 03/17/2024 4:00 PM CDT Therapy Visit [address] [phone] Danya [place], [place] [address] [phone] Vanessa Duggan, PT 03/23/2024 10:30 AM CDT Office Visit [facility] [phone] [place] [phone] Denise Woodson Ra, MANUFACTURING INTERN [facility] [address] [place] [address] 03/26/2024 1:30 PM CDT Therapy Visit [facility] [address] [place] [phone] Danya You, PA 1880 [facility] [address] [place], [place] [address] Isabel Beaulieu OTR [address] [address] 03/26/2024 2:30 PM CDT Therapy Visit [facility] [address] [place] [phone] Danya You, PA [address] [place] [address] Charis Chacon, JUAN [facility] [place] [address] [place] [address] 03/26/2024 3:30 PM CDT Therapy Visit [address] [phone] Danya You, PA [address] [phone] Delicia George, PT [facility] [address] [place] [address] 04/02/2024 2:15 PM CDT Therapy Visit [address] [phone] Danya You, PA [address] [address] Isabel Beaulieu, JAIMIE [address] [address] 04/02/2024 3:15 PM CDT Therapy Visit [address] [phone] Danya You, PA [address] [place] [address] Charis Chacon, JUAN [facility] [place] [facility] [address] [place] [address] 04/02/2024 4:15 PM CDT Therapy Visit [address] [phone] Danya You PA [address] [place] [address] Delicia George, PT [address] [phone] 04/09/2024 3:15 PM CDT Therapy Visit [address] [phone] Danya You PA [address] [place] [address] Charis Chacon, JUAN [facility] [place] [facility] [address] [place] [address] 04/09/2024 4:15 PM CDT Therapy Visit [address] [phone] Danya You PA [address] [address] Delicia George, PT [address] [address] 04/15/2024 9:30 AM CDT Therapy Visit [address] [place] [phone] Danya You, PA [address] [place] [address] Danya Restrepo COIL BINDER 04/23/2024 2:30 PM CDT Therapy Visit [facility] [address] [place] [phone] Danya You, PA [address] [place] [address] Charis Chacon, [facility] [address] [place] [address] 05/05/2024 2:30 PM CDT Office Visit [facility] Epilepsy [facility] [address], [address] [place] [address] Rohit Barcenas MD 420 [facility] [address] [place], [place] [phone] 06/23/2024 11:00 AM CDT Virtual Visit [facility] Mental Health & [facility] [address] [phone] Kristin Vázquez, [facility] [address] [place] [address] 06/30/2024 2:00 PM CDT Virtual Visit [facility] Mental [facility] [address] [place] [phone] Kristin Vázquez, [facility] [address] [place] [address] documented as of this encounter Procedures Procedure Name Priority Date/Time Associated Diagnosis Comments MR BRAIN W/O CONTRAST STAT 02/13/2024 2:50 PM CDT EKG 12-LEAD, TRACING ONLY STAT 02/13/2024 12:51 PM CDT CTA HEAD NECK W CONTRAST STAT 02/13/2024 12:[address] HEAD W/O CONTRAST STAT 02/13/2024 12:28 PM CDT GLUCOSE BY METER STAT 02/13/2024 12:1 8 PM CDT CBC WITH PLATELETS AND DIFFERENTIAL STAT 02/13/2024 12:16 PM CDT TROPONIN T, HIGH SENSITIVITY STAT 02/13/2024 12:16 PM CDT CBC WITH PLATELETS & DIFFERENTIAL STAT 02/13/2024 12:16 PM CDT INR STAT 02/13/2024 12:16 PM CDT PARTIAL THROMBOPLASTIN TIME STAT 02/13/2024 12:16 PM CDT HCG QUALITATIVE STAT 02/13/2024 12:16 PM CDT BASIC METABOLIC PANEL STAT 02/13/2024 12:16 PM CDT documented in this encounter Results * MR Brain w/o Contrast (02/13/2024 [...] a DVA. FRAN ROBBINS MD SYSTEM ID: ??[id number] Narrative 02/13/2024 3:14 PM CDT MR BRAIN [...] a DVA. FRAN ROBBINS MD SYSTEM ID: [id number] Dangelo Chapin Nga DO IMG MRI ORDERABL ES * EKG 12-lead, tracing only (02/13/2024 12:51 PM CDT) Systolic Blood Pressure mmHg RADIOLOGY RESULTS Diastolic Blood Pressure mmHg RADIOLOGY RESULTS Ventricular Rate 81 BPM RAD IOLOGY RESULTS Atrial Rate 81 BPM RADIOLOG Y RESULTS DC Interval 166 ms RADIOLOG Y RESULTS QRS Duration 84 ms RADIOLO GY RESULTS QT 358 ms RADIOLOGY RESULTS QTc 415 ms RADIOLOGY RESULTS P [place] 52 degrees RADIOLOGY RESULTS R AXIS 54 degrees RADIOLOGY RESULTS T [place] 15 degrees RADIOLOGY RESULTS Interpretation ECG Sinus rhythm with occasional Premature ventricular complexes Possible Left atrial enlargement Borderline ECG When compared with ECG of 04-FEB-2024 14:46, QT has shortened Unconfirmed report - interpretation of this ECG is computer generated - see medical record for final interpretation Confirmed by - EMERGENCY ROOM, PHYSICIAN ([id number]), editor & co founder Jc Rouse ([id number]) on 02/13/2024 1:07:34 PM RADIOLOGY RESULTS 02/13/2024 12:5 1 PM CDT 02/13/2024 1:07 PM CDT Dangelo Sylvester DO ECG ORDERABLES RADIOLOGY RESULTS * CTA Head Neck with Contrast (02/13/2024 12:33 PM CDT) Anatomical Region Laterality Modality Head, [...] hours CDT. FRAN ROBBINS MD SYSTEM ID: ??[id number] Narrative 02/13/2024 12:49 PM CDT EXAM: CTA [...] of the upper aortic arch through the [place]. This CT angiogram data was reconstructed at [...] of the upper aortic arch through the [place]. This CT angiogram data was reconstructed at [...] hours CDT. FRAN ROBBINS MD SYSTEM ID: [id number] Dangelo Sylvester DO IMG CT ORDERABLE S * CT Head w/o Contrast (02/13/2024 12:28 PM CDT) Anatomical Region Laterality Modality Head, SUBRAD CT NEURO, SUBRA D CT NEURO, UMP CT NEURO, RAD CT Computed Tomography Impressions 02/13/2024 12:49 PM CDT IMPRESSION: No acute intracranial pathology. FRAN ROBBINS MD SYSTEM ID: ??[id number] Narrative 02/13/2024 12:49 PM CDT EXAM: CT HEAD W/O CONTRAST ??02/13/2024 12:28 PM HISTORY: ??Code Stroke to evaluate for potential thrombolysis and thrombectomy. PLEASE READ IMMEDIATELY. ?? COMPARISON: ??Brain MRI, Head CT and CTA 02/04/2024 TECHNIQUE: Using multidetector thin collimation helical acquisition technique, axial, coronal and sagittal CT images from the skull base to the vertex were obtained without intravenous contrast. Steward/Stewardess Room (topogram) image(s) also obtained and reviewed. Dose [...] the vertex were obtained without intravenous contrast. Steward/Stewardess Room (topogram) image(s) also obtained and reviewed. Dose [...] intracranial pathology. FRAN ROBBINS MD SYSTEM ID: [id number] Dangelo Chapin Nga DO IMG CT ORDERABLE S * Glucose by meter (02/13/2024 12:18 PM CDT) GLUCOSE BY METER POCT 95 70 - 99 mg/dL 02/13/2024 12:25 PM CDT [facility] POC Blood, venous BLOOD SPECIMEN / Unknown 02/13/2024 12:18 PM CDT 02/13/2024 12:25 PM CDT Dangelo Tavares Nga [facility] - BE[facility]ER POC T [facility] POC [facility] [address] Lab (1st floor, no room number) [place] [address], [facility] * CBC with platelets and differential (02/13/2024 12:16 PM CDT) WBC Count 8.9 4.0 - 11.0 10e3/uL [...] CDT Dangelo Sylvester DO LAB - BLOOD LUDLOWE SUDEEP [facility] Organization Address City/State/ZIP Co de Phone Number LABORATORY [facility] [address] Lab (1st floor, no room number) [place] [address], [facility] * hCG Qualitative (02/13/2024 12:16 PM CDT) hCG Serum Qualitative Negative Negative PRATEEK 02/13/2024 12:49 PM CDT [facility] Comment:This test is for scr eening purposes. Results should be interpreted along with the clinical picture. Confirmation testing is available if warranted by ordering [id number], HCG Quantitative . Blood BLOOD SPECIMEN / Unknown Venipuncture / Unknown 02/13/2024 12:16 PM CDT 02/13/2024 12:20 PM CDT Dangelo Sylvester LAB - BLOOD PAM SHEETS [facility] [address] Lab (1st floor, no room number) [place] [address] * Troponin T, High Sensitivity (02/13/2024 12:16 PM CDT) Troponin T, High Sensitivity <6 <=14 ng/L 02/13/2024 12:40 PM CDT LABORATORY Comment: Either a High Sensitivity Troponin [...] Dangelo Sylvester LAB - BLOOD PAM SHEETS [facility] [address] Lab (1st floor, no room number) [place] [address], [facility] * Partial thromboplastin time (02/13/2024 12:16 PM CDT) aPTT 26 22 - 38 Seconds 02/13/2024 12:42 PM CDT LABORATORY Blood BLOOD SPECIMEN / Unknown Venipuncture / Unknown 02/13/2024 12:16 PM CDT 02/13/2024 12:20 PM CDT Dangelo Sylvester LAB - BLOOD PAM SHEETS Performing Organization Address City/[facility]/ZIP Co de Phone Number [facility] [address] [facility], no [facility] number[facility] [place] [phone] [place] [address] * INR (02/13/2024 12:16 PM CDT) INR 0.94 0.85 - 1.15 02/13/2024 12:42 PM CDT [facility] Blood BLOOD SPECIMEN / Unknown Venipuncture / Unknown 02/13/2024 12:16 PM CDT 02/13/2024 12:20 PM CDT Dangelo Sylvester LAB - BLOOD LUDLOWAnaly SHEETS Performing Organization Address [facility]/ZIP Co de Phone Number [facility] [address] [facility] Lab (1st floor, no room number) [place] [phone] * Basic metabolic panel (02/13/2024 12:16 PM CDT) Pathologist [facility] Sodium 140 135 - 145 mmol/L 02/13/2024 [...] - 5.3 mmol/L 02/13/2024 12:40 PM CDT [facility] Chloride 103 98 - 107 mmol/L 02/13/2024 12:40 PM CDT [facility] Carbon Dioxide (CO2) 25 22 - 29 mmol/L 02/13/2024 12:40 PM CDT [facility] Anion Gap 12 7 - 15 mmol/L 02/13/2024 12:40 PM CDT [facility] Urea Nitrogen 19.0 6.0 - 20.0 mg/dL 02/13/2024 12:40 PM CDT [facility] Creatinine 0.70 0.51 - 0.95 mg/dL 02/13/2024 12:40 PM CDT [facility] GFR Estimate >90 >60 mL/min/1. 73m2 02/13/2024 12:40 PM CDT LABORATORY Calcium 9.6 8.6 - 10.0 mg/dL 02/13/2024 12:40 PM CDT LABORATORY Glucose 97 70 - 99 mg/dL 02/13/2024 12:40 PM CDT LABORATORY Blood BLOOD SPECIMEN / Unknown Venipuncture / Unknown 02/13/2024 12:16 PM CDT 02/13/2024 12:20 PM CDT Dangelo Sylvester DO LAB - BLOOD LUNAE SUDEEP LABORATORY [facility] [address] [facility] Lab (1st floor, no room number) [place] [address], [facility] documented in this encounter Visit Diagnoses Diagnosis Dizziness Dizziness and giddiness documented in this encounter Administered Medications Inactive Administered Medications - up to 3 most recent administrations Medication Order MAR Action Action Date Dose Rate Site diphenhydrAMINE (BENADRYL) injection 25 mg 25 mg, Intravenous, ONCE, On Marii 02/13/24 at 1215, For 1 dose $Given 02/13/2024 12:57 PM CDT 25 mg iopamidol (ISOVUE-370) solution 67 mL 67 mL, Intravenous, ONCE, On Marii 02/13/24 at 1215, For 1 dose, To be administered by Imaging staff during CTA Head/Neck scan. $Given 02/13/2024 12:31 PM CDT 67 mLs prochlorperazine (COMPAZINE) injection 10 mg 10 mg, Intravenous, ONCE, Administer over 1-2 Minutes, On Marii 02/13/24 at 1215, For 1 dose $Given 02/13/2024 12:58 PM CDT 10 mg sodium chloride 0.9 % bag for CT scan flush use As instructed, 100 mL, ONCE, On Marii 02/13/24 at 1215, For 1 dose, For use by Radiology to intermittently use as a flush for patients receiving a CT scan. $Given 02/13/2024 12:31 PM CDT 80 mLs sodium chloride 0.9% BOLUS 500 mL Intravenous, 500 mL, ONCE, at 500 mL/hr, Administer over 1 Hours, On Marii 02/13/24 at 1215, For 1 dose $New Bag 02/13/2024 12:57 PM CDT 500 mLs 500 mL/hr documented in this encounter Active and Recently Administered Medications Times are shown in CDT. Scheduled Medication Order 02/11/2024 02/12/2024 02/13/2024 diphenhydrAMINE (BENADRYL) injection 25 mg (COMPLETED) 25 mg, Intravenous, ONCE, On Marii 02/13/24 at 1215, For 1 dose 1257 ($Given - Provi andreia: Otto Jara RN) iopamidol (ISOVUE-370) solution 67 mL (COMPLETED)(Linked Group 1) 67 mL, Intravenous, ONCE, On Marii 02/13/24 at 1215, For 1 dose, To be administered by Imaging staff during CTA Head/Neck scan. 1231 ($Given - Provi andreia: Jerilyn Bagley) prochlorperazine (COMPAZINE) injection 10 mg (COMPLETED) 10 mg, Intravenous, ONCE, Administer over 1-2 Minutes, On Marii 02/13/24 at 1215, For 1 dose 1258 ($Given - Provi andreia: Otto Jara RN) sodium chloride 0.9 % bag for CT scan flush use (COMPLETED)(Linked Group 1) As instructed, 100 mL, ONCE, On Marii 02/13/24 at 1215, For 1 dose, For use by Radiology to intermittently use as a flush for patients receiving a CT scan. 1231 ($Given - Provi andreia: Jerilyn Bagley) sodium chloride 0.9% BOLUS 500 mL (COMPLETED) Intravenous, 500 mL, ONCE, at 500 mL/hr, Administer over 1 Hours, On Marii 02/13/24 at 1215, For 1 dose 1257 ($New Bag - Pro vider: Otto Jara RN)1521 (Stopped - Provider: Otto Jara RN) Linked Groups Order Group 1: iopamidol (ISOVUE-370) solution 67 mL (COMPLETED)Jump to med 67 mL, Intravenous, ONCE, On Marii 02/13/24 at 1215, For 1 dose, To be administered by Imaging staff during CTA Head/Neck scan. And sodium chloride 0.9 % bag for CT scan flush use (COMPLETED)Jump to med As instructed, 100 mL, ONCE, On Marii 02/13/24 at 1215, For 1 dose, For use by Radiology to intermittently use as a flush for patients receiving a CT scan. documented in this encounter Additional Health Concerns Assessment Noted Time PHQ-9 Depression Total Score: 16 024 3:27 PM CDT documented as of this encounter Care Teams Rn Diabetes Educator Relationship Specialty Start Date End Date Winston Villatoro OD [facility] [address] [place] [address] PCP - Ophthalmology Ophthalmology 02/11/13 Denise Woodson Ra, APRN [employer] [address] [place] [address] PCP - General Family Practice 09/21/20 Denise Woodson Ra MANUFACTURING INTERN [employer] [address] [place] [address] Assigned PCP 07/17/20 Usha Simon APRN [employer] [address] [address] Nurse Practitioner Neurological Surgery 01/24/24 Dangelo Salinas MD [address] [place] [address] Neurology 01/27/24 Usha Simon APRN [employer] [address] [address] Assigned Neuroscience Provider 02/06/24 Anastasia Stearns, RN [employer] [place] 02/06/24 documented as of this encounter
--- OUTSIDE RECORDS SUMMARY | 2024-02-22 15:21 | XMS_ITS | Encounter Summary ---
Author Organization [facility] Address [address] [place] [address] Care Team Providers Care Life Scientists Name Role Phone Winston Villatoro OD Unavailable [phone] Denise Woodson Ra, APRN EARLY CHILDHOOD EDUCATION SPECIALIST Unavailable + [phone] Denise Woodson Ra WINDOWS SECURITY ENGINEER EARLY CHILDHOOD EDUCATION SPECIALIST Primary Care Provid er Usha Simon APRN EARLY CHILDHOOD EDUCATION SPECIALIST Unavailable + [phone] Dangelo Salinas MD Unavailable Usha Simon APRN EARLY CHILDHOOD EDUCATION SPECIALIST Unavailable + [phone] Anastasia Stearns RN Unavailable [phone] Encounter Details Date Type Department Care Team (Late st Contact Info) Description 02/12/2024 [facility] Neuro[facility] [address] [place] [address] Robin Zepeda MD [address] [place], [place] [address], [place] [address] Social History Tobacco Use Types Packs/Day Years [...] encounter Miscellaneous Notes * Telephone Encounter - Amy Shelton - 02/12/2024 4:01 PM CDT LVM for pt about Dr Zepeda calling later after 5:30 for appointment due to emergency procedure. Pt did not answer. Amy Shelton, EMT documented in this encounter Plan of Treatment Upcoming Encounters Date Type Department Care Team (Late st Contact Info) Description 02/26/2024 1:40 PM CDT Appointment [facility] Care Center Imaging [address] [facility] [address] [place] [address] Denise Woodson Ra, WINDOWS SECURITY ENGINEER EARLY CHILDHOOD EDUCATION SPECIALIST [address] [place] [address] 02/26/2024 2:15 PM CDT Therapy Visit [address] [phone] Danya You, PA 2450 [facility] 213 [place] [address] Charis Chacon, JUAN [facility] [address] [place] [address] 02/26/2024 3:00 PM CDT Therapy Visit [address] [phone] Danya You, AMAIRANI [address] [place] [address] Isabel Beaulieu, OTR [facility] 150 [facility] [place] [address] 02/27/2024 4:45 PM CDT [facility] 150 [place] [address] Danya oYu, PA [facility]0 [facility] [address] [address] Vanessa Duggan, PT 03/05/2024 1:30 PM CDT Therapy Visit [facility] 150 [place] [phone] Danya You, AMAIRANI Critical access hospital0 [facility] [address] [address] Isabel Beaulieu, OTR [facility] 150 [place] [address] 03/05/2024 3:15 PM CDT Therapy Visit [facility] 150 [place] [address] Danya You, PA [address] [place] [address] Charis Chacon, [facility] [address] [place] [address] 03/05/2024 4:15 PM CDT Therapy Visit [facility] 150 [place] [address] Danya You PA [address] [place] [address] Delicia George, PT [address] [address] 03/11/2024 2:15 PM CDT Therapy Visit [facility] 150 [place] [address] Danya You, PA [address] [place] [address] Isabel Beaulieu, JAIMIE [address] [address] 03/11/2024 3:00 PM CDT Therapy Visit [address] [address] Danya You, PA [address] [place] [address] 805374 Charis Chacon, DIRECTOR OF NEUROLOGY [facility] [address] [place] [address] 03/11/2024 4:15 PM CDT Therapy Visit [address] [address] Danya You, PA [address] [place] [address] Delicia George, PT [facility] [address] [place] [address] 03/17/2024 10:00 AM CDT Office Visit [facility] [address] [place] [phone] Denise Woodson Ra, WINDOWS SECURITY ENGINEER EARLY CHILDHOOD EDUCATION SPECIALIST [address] [place], [place] [address] 03/17/2024 1:30 PM CDT Therapy Visit [address] [address] Danya You, PA [address] 567[address] Isabel Beaulieu OTR [address] [address] 03/17/2024 2:30 PM CDT Therapy Visit [address] [phone] Danya You, PA 2450 [facility] [address] 616034 Charis Chacon SLP [facility] [address] [place] [address] 03/17/2024 4:00 PM CDT Therapy Visit [address] [address] Danya You, PA [address] 241814 Vanessa Duggan, GALINA 03/23/2024 10:30 AM CDT Office Visit [facility] [address] [place] [address] Denise Woodson Ra, WINDOWS SECURITY ENGINEER EARLY CHILDHOOD EDUCATION SPECIALIST [address] [place] [address] 03/26/2024 1:30 PM CDT Therapy Visit [address] [phone] Danya You, PA [address] [address] Isabel Beaulieu, OTR [address] [address] 03/26/2024 2:30 PM CDT Therapy Visit [address] [phone] [place] [address] [address] Charis Chacon, [facility] [address] [place] [address] 03/26/2024 3:30 PM CDT Therapy Visit [address] [phone] Danya You, PA [address] [address] Delicia George, PT [facility] [address] [place] [address] 04/02/2024 2:15 PM CDT Therapy Visit [address] [phone] Danya You PA [address] CHAR[place] 213 [place] [address] Isabel Beaulieu, OTR [facility] 150 [place] [address] 04/02/2024 3:15 PM CDT Therapy Visit [address] [phone] Danya You, PA [address] [address] Charis Chacon, JUAN [facility] [address] [place] [address] 04/02/2024 4:15 PM CDT Therapy Visit [address] [address] Danya You, PA [address] [address] Delicia George, PT [facility] [address] [place] [address] 04/09/2024 3:15 PM CDT Therapy Visit [address] [address] Danya You PA [address] CHARLES [address] [place] [address] Charis Chacon, JUAN [facility] [address] [place] [address] 04/09/2024 4:15 PM CDT Therapy Visit [facility] 150 [place] [address] Danya You, PA Critical access hospital0 [facility] [address] [address] Delicia George, PT [facility] [place] [address]09 [place] [address] 04/15/2024 9:30 AM CDT Therapy Visit [address] [address] Danya You, PA [address] [place] [address] Danya Restrepo SLP 04/23/2024 2:30 PM CDT Therapy Visit [address] [address] Danya You, PA [address] [place], [place] [address]Analy [address] [address] Charis Chacon, JUAN [facility] [address] [place] [address] 05/05/2024 2:30 PM CDT Office Visit [facility] Epilepsy Care [address], [address] [place] [address] Rohit Barcenas MD 420 [facility] 295 [place], [place] [address] 06/23/2024 11:00 AM CDT Virtual Visit [facility] Mental Health & Addiction [facility] [address] [place] [address] [place] [phone] Kristin Vázquez, [facility] [address] [facility] [place] [address] 06/30/2024 2:00 PM CDT Virtual Visit [facility] Mental Health & Addiction [facility] 6401 [facility] [place] [address] Kristin Vázquez Se, [facility] [address] [place] [address] documented as of this encounter Visit Diagnoses Not on filedocumented in this encounter Additional Health Concerns Assessment Noted Time PHQ-9 Depression Total Score: 16 024 3:27 PM CDT documented as of this encounter Care Teams Life Scientists Relationship Specialty Start Date End Date Winston Villatoro OD [facility] [place] [address] [facility] [address] [place] [address] PCP - Ophthalmology Ophthalmology 02/11/13 Denise Woodson Ra, APRN EARLY CHILDHOOD EDUCATION SPECIALIST [address] [place] [address] PCP - General Family Practice 09/21/20 Denise Woodson Ra, APRN EARLY CHILDHOOD EDUCATION SPECIALIST [address] [place] [address] Assigned PCP 07/17/20 Usha Simon APRN EARLY CHILDHOOD EDUCATION SPECIALIST 9 [facility] [address] Nurse Practitioner Neurological Surgery 01/24/24 Dangelo Salinas MD [address] [place] [address] Neurology 01/27/24 Usha Simon APRN EARLY CHILDHOOD EDUCATION SPECIALIST [address] [place], [place] [address] [address] Assigned Neuroscience Provider 02/06/24 Anastasia Stearns, RN Lead Neuroradiologist 02/06/24 documented as of this encounter
--- OUTSIDE RECORDS SUMMARY | 2024-02-22 15:22 | XMS_ITS | Encounter Summary ---
Author Organization [facility] Address [address] [place] [address]. [place] [address] Care Team Providers Care Speech And Language Specialist Name Role Phone Winston Villatoro OD Unavailable [phone] Denise Woodson Ra, APRN SPUD GRADER Unavailable [phone] eDnise Woodson Ra, APRN SPUD GRADER Primary Care Provid er Usha Simon APRN SPUD GRADER Unavailable [phone] Dangelo Salinas MD Unavailable Encounter Details Date Type Department Care Team (Latest Contact Info) Description 02/05/2024 Travel Social History Tobacco Use Types Packs/Day [...] 1:40 PM CDT Appointment [facility] Specialty Care Center Imaging [address] [place] [address] Denise Woodson Ra, NEWS CAMERA PERSON SPUD GRADER [address] [place] [address] 02/26/2024 2:15 PM CDT Therapy Visit [facility] 150 [place] [phone] Danya You PA [address] [place], [place] 8[address] Charis Chacon, JUAN [facility] [address] [place] [address] 02/26/2024 3:00 PM CDT Therapy Visit [address] [phone] Danya You, AMAIRANI [address] [place], [place] 780664 Isabel Beaulieu, OTJah [facility] 150 [place] [address] 02/27/2024 4:45 PM CDT Therapy Visit [facility] 150 [place] [address] Danya You, AMAIRANI [address] [place], [place] 508[address] Vanessa Duggan, PT 03/05/2024 1:30 PM CDT Therapy Visit [facility] 150 [place] [address] Danya You PA 2450 [facility] [address] [place] [address] Isabel Beaulieu, [facility] 150 [place] [address] 03/05/2024 3:15 PM CDT [facility] 150 [place] [address] Danya You, AMAIRANI [address] 567[address] Charis Chacon, [facility] [address] [place] [address] 03/05/2024 4:15 PM CDT [facility] 150 [place] [address] Danya You, AMAIRANI [address] [address] Delicia George, PT [facility] [address] [address] 03/11/2024 2:15 PM CDT Therapy [facility] [address] [place] [address] Danya You, AMAIRANI [address] [address] Isabel Beaulieu OTR [facility] [address] [place] [address] 03/11/2024 3:00 PM CDT Therapy Visit [address] [phone] Danya You, PA [address] [address] Charis Chacon, JUAN [facility] [address] [place] [address] 03/11/2024 4:15 PM CDT Therapy Visit [address] [address]257-[address] Danya You, PA [address] 192684 Delicia George, PT [facility] [address] [place] [address] 03/17/2024 10:00 AM CDT Office Visit [facility] [address] [place] [address] Denise Woodson Ra, NEWS CAMERA PERSON SPUD GRADER [address] [place], [place] 8439[address] 03/17/2024 1:30 PM CDT Therapy Visit [address] [phone] Danya You, AMAIRANI 4700 [facility] [address] [address] Isabel Beaulieu, OTR [address] [address] 03/17/2024 2:30 PM CDT Therapy Visit [facility] 150 [place] [address] Danya You, PA 2450 [facility] 213 [place] [address] Charis Chacon, JUAN [facility] [address] [place] [address] 03/17/2024 4:00 PM CDT Therapy Visit [address] [phone] [place] 0320 [facility] 213 [place], [place] 446914 Vanessa Duggan, PT 03/23/2024 10:30 AM CDT Office Visit [facility] [address] [place] [address] Denise Woodson Ra, NEWS CAMERA PERSON SPUD GRADER [address] [place], [place] 458[address] 03/26/2024 1:30 PM CDT Therapy Visit [address] [phone] Danya You, PA 0960 [facility] 213 [place], [place] 6688[address] Isabel Beaulieu OTR [address] [address] 03/26/2024 2:30 PM CDT Therapy Visit [address] [phone] Danya You PA 2450 [facility] [place] [address] Charis Chacon SLP [facility] [address] [place] [address] 03/26/2024 3:30 PM CDT Therapy Visit [facility] 150 [place] [phone] Danya You, PA [address] [address] Delicia George, PT [facility] [address] [address] 04/02/2024 2:15 PM CDT [facility] 150 [place] [phone] Danya You, PA [address] [address] Isabel Beaulieu, OTR [facility] 150 [place] [address] 04/02/2024 3:15 PM CDT Therapy Visit [facility] 150 [place] [address] Danya You, PA [address] [address] Charis Chacon, JUAN [facility] [address] [place] [address] 04/02/2024 4:15 PM CDT Therapy Visit [address] [address] Danya You PA [address] [place] [address] Delicia George, PT [address] [address] 04/09/2024 3:15 PM CDT Therapy Visit [address] [address] Danya You, AMAIRANI [address] [address] Charis Chacon, [facility] [address] [place] [address] 04/09/2024 4:15 PM CDT Therapy Visit [address] [address] Danya You, AMAIRANI Critical access hospital0 [facility] [address] [address] [address] Delicia George, PT [address] [address] 04/15/2024 9:30 AM CDT Therapy Visit [address] [address] Danya You PA Critical access hospital0 [facility] [address] [address] [address] Danya Restrepo, DRILLING ASSISTANT 04/23/2024 2:30 PM CDT Therapy Visit [facility] [place] [facility] 150 [facility] [place] [address] Danya You, AMAIRANI [address] [place] [address] Charis Chacon, JUAN [facility] [address] [place] [address] 05/05/2024 2:30 PM CDT Office Visit [facility] Epilepsy [facility] [address], [facility] 255 [place] [address] Rohit Barcenas MD 420 [facility] 295 [place], [place] [address] 06/23/2024 11:00 AM CDT Virtual Visit [facility] Mental Health & Addiction [facility] 6401 [place] [address] Kristin Vázquez, [facility] 6341 [place] [address] 06/30/2024 2:00 PM CDT Virtual Visit [facility] Mental Health & Addiction [facility] 6401 [place] [address] Kristin Vázquez, [facility] [address] [place] [address] documented as of this encounter Visit Diagnoses Not on filedocumented in this encounter Additional Health Concerns Assessment Noted Time PHQ-9 Depression Total Score: 14 024 9:33 AM CDT documented as of this encounter Care Teams Speech And Language Specialist Relationship Specialty Start Date End Date Winston Villatoro, OD [facility] [place] [address] [place] [address] PCP - Ophthalmology Ophthalmology 02/11/13 Denise Woodson Ra, APRN SPUD GRADER [address] [place] [address] PCP - General Family Practice 09/21/20 Denise Woodson Ra NEWS CAMERA PERSON SPUD GRADER [address] [place] [address] Assigned PCP 07/17/20 Usha Simon APRN SPUD GRADER 9 [facility] [id number] [place] [address] Nurse Practitioner Neurological Surgery 01/24/24 Dangelo Salinas MD [address] [place] [address] Neurology 01/27/24 documented as of this encounter
--- OUTSIDE RECORDS SUMMARY | 2024-02-22 15:22 | XMS_ITS | Encounter Summary ---
Author Organization [facility] Address [address] [place] [address]. [place] [address] Care Team Providers Care Steward/Stewardess [employer] Name Role Phone Winston Villatoro OD Unavailable [phone] Denise Woodson Ra, APRN SERVICE OR WORK DISPATCHER CHIEF Unavailable [phone]- [phone] Denise Woodson Ra, APRN SERVICE OR WORK DISPATCHER CHIEF Primary Care Provid er Usha Simon APRN SERVICE OR WORK DISPATCHER CHIEF Unavailable [phone]- [phone] Dangelo Salinas MD Unavailable Reason for Visit * Reason Comments Stroke Symptoms Encounter Details Date Type Department Care Team (Late st Contact Info) Description 02/04/2024 1:45 PM CDT - 02/04/2024 7:21 PM CDT Emergency [facility] Emergency Department [address] [place] [address] Jovita Vail MD [address] [place] [id number] Peter Gonzalez DO [address] [place] [id number] [phone] Left sided numbness; Vision abnormalities; Coordination abnormal Discharge Disposition: Home or Self Care Social History Tobacco Use Types Packs/Day Years Used Date Smoking Tobacco: Never Smokeless Tobacco: Never Alcohol Use Standard Drinks/Week Comments Not Currently 0 (1 standard drink = 0.6 oz pur e alcohol) minimal PHQ-2 Answer Date Recorded PHQ-2 Total Score (Adult) - Positive if 3 or more points; Administer PHQ-9 if positive 2 02/05/2024 Adolescent Education Answer Date Record ed Getting School Help Needed Not on file 07/01 Sex and Gender Information Value Date Recorded Sex Assigned at Not on file Gender Identity Not on file Sexual Orientation Not on file documented as of this encounter Last Filed Vital Signs Vital Sign Reading Time Taken Comments Blood Pressure 126/72 02/04/2024 4:00 PM CDT Pulse 67 02/04/2024 4:00 PM CDT Temperature 36.4 ??C (97.5 ??F) 02/04/2024 1:47 PM CD T Respiratory Rate 19 02/04/2024 3:00 PM CDT Oxygen Saturation 96% 02/04/2024 5:37 PM CDT Inhaled Oxygen Concentration - - Weight 98 kg (216 lb 0.8 oz) 02/04/2024 2:17 PM CDT Height - - Body Mass Index 32.37 02/04/2024 10:47 AM CDT documented in this encounter Discharge Instructions * Discharge Instructions* Jovita Vail MD - 02/04/2024 5:24 PM CDT Thank you for choosing [facility] for your care. It was a pleasure taking careof you today in our Emergency Department. Instructions from your doctor today: Emergency Department (ED) testing is focused on the potential causes of your symptoms that are the most dangerous possibilities, and cannot cover every possibility. Based on the evaluation, it was deemed sufficiently safe to discharge and continue management through the clinics. Thus, follow-up is very important to assess for improvement/worsening, potential further testing, and potential treatment adjustments. If you were given opioid pain medications or other medications that can make you drowsy while in the ED, you should not drive for at least several hours and not until you feel completely back to normal. Please make an appointment to follow up with: - Your Primary Care Provider in 2-4 days - If you do not have a primary care provider, you can be seen in follow-up and establish care by calling any of the clinics below: - [facility] Center (phone: [phone]) - Primary Care / [facility] (phone: [phone]) - Have your clinic provider review the results from today's visit with you again, including any potential follow-up or additional testing that may be needed based on the results. Occasionally, incidental findings are found on later review by radiologists that may need follow-up. If you have continued worsening symptoms, please return to the emergency department. * Attachments The following attachments cannot be sent through Care Everywhere. * Numbness and Tingling ([place]) documented in this encounter Medications at Time [...] your preference 01/24/2024 methyl salicylate-menthol (ICY HOT) ointmentIndications:F ibromyalgia,Pain of [...] by mouth daily 30 tablet 01/24/2024 02/14/2024 calcium carbonate (TUMS) 500 MG chewable tabletIndications:Johnathan sea Take 1 tablet (500 mg) by mouth 4 times daily as needed for heartburn 01/22/2024 02/06/2024 hydrOXYzine HCl (ATARAX) 50 MG tabletIndications:Gen eralized anxiety disorder Take 0.5-1 tablets (25-50 mg) by mouth every 6 hours as needed for anxiety or other (sleep) 60 tablet 01/24/2024 02/06/2024 levETIRAcetam (KEPPRA) 750 MG tabletIndications:His tory of seizure Take 1 tablet (750 mg) by mouth 2 times daily 60 tablet 01/24/2024 02/14/2024 rosuvastatin (CRESTOR) 20 MG tabletIndications:Cer ebrovascular accident (CVA), unspecified mechanism (H) Take 1 tablet (20 mg) by mouth at bedtime 30 tablet 01/24/2024 02/14/2024 documented as of this encounter Progress Notes * Prashant Tanner RN - 02/04/2024 2:45 PM CDT Stroke Code Nurse-Responder Note Arrival Time to Stroke Code: 1421 Stroke Code Team interventions: - CT/CTA/CTP - Deescalated at 1512 by Juancarlos Yip MD ED/Bedside Nurse providing handoff: Tulio Sims RN Time left for CT: 1423 Time arrived to next location (ED/Unit/IR): 1440 ED/Bedside Nurse given handoff (name/time): GEMA Guerrero. GEMA Tanner documented in this encounter Consult Notes * Robin Westbrook MD - 02/04/2024 4:24 PM CDT Images from the original note were not included. 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 The patient's last known well was 02/01 and stated these symptoms started Saturday morning. BP 150/89, BG 96. NIHSS was 2 for subjective left-sided sensory deficit and left arm drift without hitting the bed. The patient's exam had nonspecific fluctuation. There is significant dysmetria with bilateral [id number]-[id number]-atmv and hands were outstretched and eyes closed, but this resolved when eyes were open and finger-nose was performedperfectly. There is also delayed response to questioning a visual field assessment and initial concern for right superior quadrant visual field cut, but this was later demonstrated to be intact. CT of the head was negative for acute pathology. CTA of the head and neck demonstrated a known left sigmoid dural AV fistula without evidence of large vessel occlusion. CT perfusion did not demonstrate perfusion deficit. Patient was not a TNK candidate due to minor symptoms and presenting outside of thetime window. Stroke alert was de-escalated. The patient has had recent neurologic evaluation within the past month. On 01/04/24, the patient presented to [place] ED for evaluation of persistent headache and left-sided, pulsatile tinnitus. Notes from [facility] ESPINOZA are not available for chart review, but story is pieced together from patienthistory and what is available within the chart. CT head and CT angiogram at that time revealed a left sigmoid dural AV fistula and the patient was referred to [facility] for digital subtraction angiography. DSA on 01/08 revealed cognard type I left sigmoid dural arteriovenous fistula and fibromuscular dysplasia in the mid cervical segment of the right internal carotid artery with a mild non- occlusive dissection. Following the procedure, she was noted to have poor coordination and weakness of the RUE. CT/CTA were negative for acute findings, and per patient preference, discharged to home on aspirin 81mg. On 01/12, she called into her [facility] team and noted she was struggling to use herright arm while at work stating it felt uncoordinated and heavy. MRI brain was ordered and performed as an outpatient the same day which revealed bilateral punctate acute infarcts in the frontal and parietal lobes bilaterally. She was recommended to increase to aspirin 325mg and referral was made to outpatient PT/OT. She presented again to [place] ER on 01/13 for continued frustration about her right arm weakness and poor coordination. CT head/CTA were repeated and unchanged but she was admitted for further workup. Per the note of the telehealth neurologist on 01/13, she suffered a focal seizure with secondary generalization and the on-call hospitalist - Dr. Reese Yost - called me israel swain this event. The seizure and postictal period were brief. Repeat head CT did not show any evidence for hemorrhage. She was given a loading dose of Keppra and maintenance dosing of 750mg twice daily was ordered. Speaking to the patient today about the event, she remembers laying in a hospital bed looking at the ceiling and hearing people yell she is having a seizure. She remembers shaking during the event. She remembers hearing staff talk about administering Ativan, and does not remember much after that. He says she was groggy and disoriented for the next day, which the confirms. Following this possible seizure, she was started on Keppra 750 mg twice daily. Etiology of her stroke was presumed to be periprocedural secondary to the cerebral angiogram. Hypercoagulation workup returned normal, including: factor V Leiden, factor II gene mutation, Lupus anticoagulant, Cardiolipin antibody. TTE was noted to be unremarkable although I do not see records in our system. The patient's exam slowly improved and she is discharged to [facility] for management of right upper extremity weakness, ataxia, and gait instability. Per the patient and per rehab notes, she had excellent recovery during her ARU stay and her right side returned to her baseline. She was discharged from [facility] on 01/25 had felt like her normal self until Saturday when she started develop full facial numbness, and left arm and leg sensory changes stated above. Past Medical History Stroke risk factors: Prior infarct (although presumed to be iatrogenic) Preadmission antithrombotic regimen: Aspirin 325mg Modified Bowman Score (Pre-morbid) 1-No significant disability despite symptoms Assessment and Plan 1. 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 NIHSS was 2 for subjective left-sided sensory deficit and left arm drift without hitting the bed, however patient had fluctuations during exam. CT head, CT angiogram, and CT perfusion were negative for acute finding. As detailed above, the patient had a recent bilateral punctate infarcts presumed to be secondary to DSA procedure performed late in December. Patient has been on aspirin 325 and required ARU stay for right- sided arm weakness and dysmetria which is now resolved. Her symptoms of full facial numbness would not fita specific vascular territory, and her sensory symptoms in her left arm and left leg are nonspecific and vary based on repeated examiner questioning. She endorses left arm numbness at 85% of normal and initially endorses left leg numbness, however later reports that she has bilateral foot tingling and pain as opposed to numbness. During the examination she demonstrates imbalance with walking and significant swaying with Romberg without taking corrective steps or actually falling. After the examwhen ambulating to the bathroom, she demonstrates much more stable ambulation. She has had a complicated extensive clinical course over the past month. In regard to her seizure at [facility] on 01/13, thepatient reports to us that she remembers the event and loses memory of the event only after receiving 3 mg Ativan. Description of the event and outside records indicate full body clonic movements, and maintaining consciousness throughout these is not typical during a classic GTC. We have low suspicion that this may have represented a GTC, but obviously were not present for the event and will defer to the medical and neurology teams at [facility] for management of Bridget. Some of the neurological seq uela described above may be a stress response to the extensive clinical course she has endured overthe past month. She does not have classic cardiovascular risk factors for stroke and it is presumedthat her prior infarcts are secondary to DSA. It is possible that she had a another vascular event and it is reasonable to obtain MRI brain, however we have low suspicion at this time. Intravenous Thrombolysis Not given due to: - minor/isolated/quickly resolving symptoms - unclear or unfavorable risk-benefit profile for extended window thrombolysis beyond the conventional 4.5 hour time window Endovascular Treatment Not initiated due to absence of proximal vessel occlusion Plan: -MRI Brain w/ and w/o contrast -Consider ED PT assessment for gait abnormality -If new stroke is identified that was not previously demonstrated on recent MRI, will admit to Stroke Service for further workup -If MRI Negative, Neurology will sign off and have no further recommendations The patient was seen and discussed with the Stroke Staff Dr. Yip. Robin Westbrook MD Neurology Resident Imaging/Labs (personally reviewed) CT head: Impression: 1. No acute intracranial pathology. 2. ASPECT Score: 10/10. 3. Left sphenoid locule mucosal thickening and debris which can be seen with acute sinusitis. CTA head/neck: CT Perfusion head: Impression: 1. No evidence of ischemia or acute infarction on the CT Perfusion examination. 2. Head CTA demonstrates no large vessel occlusion or significant stenosis of the major intracranial arteries. Known left sigmoid dural AV fistula. 3. Neck CTA demonstrates no stenosis of the major cervical arteries. Physical Examination BP: 134/80 Pulse: 71 Resp: 19 Temp: 97.5 ??F (36.4 ??C) Temp src: Oral SpO2: 96 % O2 Device: None (Room air) Weight: 98 kg (216 lb 0.8 oz) Wt Readings from Last 2 Encounters: 02/04/24 98 kg (216 lb 0.8 oz) 02/04/24 97.5 kg (215 lb) Neurologic Mental Status: alert, oriented x 3, follows commands, speech clear and fluent, naming and repetition normal Cranial Nerves: slow to respond to questioning during visual field testing, but able to demonstratevisual thomas intact, PERRL, EOMI with normal smooth pursuit, facial sensation equally and bilaterally diminished in V1-V3 segments, facial movements symmetric, hearing not formally tested but intactto conversation, palate elevation symmetric and uvula midline, no dysarthria, shoulder shrug strongbilaterally, tongue protrusion midline Motor: normal muscle tone and bulk, no abnormal movements, able to move all limbs spontaneously, strength 5/5 throughout upper and lower extremities, slight pronator drift of L arm without hitting the bed, later demonstrated to be without drift Reflexes: no clonus Sensory: Decreased sensation to light touch in left upper rated as 85% of normal. Endorses bilateral foot positive tingling sensation with touch. Variably reports loss/increase in sensation in LLE Coordination: When patient's hands are outstretched and palm turned upward with eyes closed, patient persistently misses her nose and nearly touches her contralateral ear on each hand with juerxk-ga-iaqo. This does not improve with repetition. With eyes open, there is no dysmetria with nbprds-ot-caah bilaterally. No dysmetria with rwhh-ts-lyvc bilaterally. Station/Gait: Patient displays significant swaying with Romberg test but does not take corrective steps and does not fall over. Appears unsteady when walking but able to ambulate without difficulty. Appears to almost full with toe walk and heel walk but is able to catch herself. Ambulation improveswhen walking to the bathroom after exam is completed. Stroke Scales NIHSS 1a. Level of Consciousness 0-->Alert, keenly responsive 1b. LOC Questions 0-->Answers both questions correctly 1c. LOC Commands 0-->Performs both tasks correctly 2. Best Gaze 0-->Normal 3. Visual 0-->No visual loss 4. Facial Palsy 0-->Normal symmetrical movements 5a. Motor Arm, Left 1-->Drift, limb holds 90 (or 45) degrees, but drifts down before full 10 seconds, does not hit bed or other support 5b. Motor Arm, Right 0-->No drift, limb holds 90 (or 45) degrees for full 10 secs 6a. Motor Leg, Left 0-->No drift, leg holds 30 degree position for full 5 secs 6b. Motor Leg, right 0-->No drift, leg holds 30 degree position for full 5 secs 7. Limb Ataxia 0-->Absent 8. Sensory 1-->Vuqf-pd-phuyrkhp sensory loss, patient feels pinprick is less sharp or is dull onthe affected side, or there is a loss of superficial pain with pinprick, but patient is aware of being touched 9. Best Language 0-->No aphasia, normal 10. Dysarthria 0-->Normal 11. Extinction and Inattention 0-->No abnormality Total 2 (02/04/24 1501) Labs CBC Lab Results Component Value Date HGB 14.5 02/04/2024 HCT 42.8 02/04/2024 WBC 8.2 02/04/2024 PLT 195 02/04/2024 BMP Lab Results Component Value Date NA 138 02/04/2024 POTASSIUM 4.7 02/04/2024 CHLORIDE 101 02/04/2024 CO2 27 02/04/2024 BUN 15.0 02/04/2024 CR 0.79 02/04/2024 GLC 96 02/04/2024 TIFF 9.6 02/04/2024 INR INR Date Value Ref Range Status 02/04/2024 0.90 0.85 - 1.15 Final 01/21/2024 0.92 0.85 - 1.15 Final 01/19/2024 0.87 0.85 - 1.15 Final Data Stroke Code Data (for stroke code without tele) Stroke code activated 02/04/24 1426 First stroke provider response 02/04/24 1429 Last known normal 02/02/24 0800 Time of discovery (or onset of symptoms) 02/02/[address] read by Stroke Neuro Provider 02/04/24 1445 Was stroke code de-escalated? Yes 02/04/24 1520 Clinically Significant Risk Factors Present on Admission # Drug Induced Platelet Defect: home medication list includes an antiplatelet medication # Obesity: Estimated body mass index is 32.37 kg/m?? as calculated from the following: Height as of an earlier encounter on 02/04/24: 1.74 m (5' 8.5). Weight as of this encounter: 98 kg (216 lb 0.8 oz). # Financial/Environmental Concerns: # Asthma: noted on problem list Time Spent on this Encounter Billing: Associated attestation - Juancarlos Yip MD - 02/05/2024 11:46 PM CDT Vascular Neurology Attending Attestation I saw and evaluated Alcon Zamora on 02/04/24 with the resident. I personally reviewed all laboratory studies and neuroimaging. I agree with the assessment and plan of care documented except as mentioned below. I have personally spent a total of 50 minutes consulting with her medical providers and assessing the patient today, with more than 50% of this time spent in consultation, coordination of care, and discussion with the patient and/or family regarding diagnostic results, prognosis, symptommanagement, risks and benefits of management options, and development of plan of care. MRI Brain showed no acute infarcts. As detailed below, fluctuating bilateral symptoms make TIA/stroke less likely. On exam, she reports decreased sensation on the left arm/leg but this is inconsistent. She is able to ambulate without support. She appears to sway with tiptoe walking and Romberg but she can really balance very well while maintaining her center of gravity. All these findings suggestfunctional neurological disorder which may have been precipitated by stress related to recent procedure related complications. 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 Outpatient provider may consider referral to psychology for cognitive behavioral therapy (CBT). No further workup recommended. She maybe discharged home if she continues to have no focal deficits and ambulates well without support. Juancarlos Yip MD Remote Encoding Operations Supervisor Department of Neurology Securely message with the [employer] Console (learn more here) To page me or covering stroke neurology garment steamer, click here: [employer] Choose Roof Plumber tab at top, then search dropdown box for Neurology Adult, select location, pressEnter, then look for stroke/neuro ICU/telestroke. documented in this encounter ED Notes * Tulio Grider RN - 02/04/2024 2:24 PM CDT Patient to CT with Critical Care Flyer, patient on monitor with neuro at bedside * Tulio Grider RN - 02/04/2024 2:06 PM CDT Patient presents from triage with complaint of left sided weakness and poor balance. MD at bedside for eval, patient placed on the monitor, denies pain. Awaiting MD orders, at bedside. * Alexa Cordoba RN - 02/04/2024 1:50 PM CDT Pt referred to ED for stroke like symptoms. Pt states she recently had a stroke with right sided deficits, was being seen for her follow up with neurology, and noted to have left sided deficits sinceSunday. Pt arrived, tier 2 stroke code called upon arrival. Triage Assessment (Adult) Row Name 02/04/24 1348 Triage Assessment Airway WDL WDL Respiratory WDL Respiratory WDL WDL Skin Circulation/Temperature WDL Skin Circulation/Temperature WDL WDL Cardiac WDL Cardiac WDL WDL Peripheral/Neurovascular WDL Peripheral Neurovascular WDL WDL Cognitive/Neuro/Behavioral WDL Cognitive/Neuro/Behavioral WDL WDL * Jovita Vail MD - 02/04/2024 1:43 PM CDT Images from the original note were not included. [facility] ([facility]) 02/04/24 ED PROVIDER NOTE ED 07 History Chief Complaint Patient presents with Stroke Symptoms HPI Alcon Zamora is a 48 year old female with a past medical history significant for Lizy-Danlos syndrome, mild persistent asthma, anxiety and depression and fibromyalgia who presents to the EmergencyDepartment for evaluation of stroke symptoms. Patient presents today with worsening left side deficits. She states on Thursday 02/01 afternoon she began noticing vision changes in her right eye. She states her vision split and she was unable to see in the peripherals of her right eye. She then begannoticing left leg & arm numbness and weakness. She feels as if her legs are going to give out when she walks. She states she feels as if her whole face is tingling. She denies recent head trauma.No fevers. No difficulty swallowing or talking. She is concerned as she recently had a right sided stroke and was recovering well from this and now her left side feels worse than her right. No recentseizure like activity. Per Chart Review: Patient presented for a planned catheter angiogram at [facility] for left sided pulsatile tinnitus on 01/08. Following this procedure she began to experience right sided weakness and numbness and called her neurosurgeon who scheduled an MRI head. This was found to have multiple acute ischemic infarcts of the frontal lobes, parietal lobes and left supramarginal gyrus after procedure with associated right sided weakness and numbness, likely embolic in nature secondary toprocedure complication, complicated by post-stroke seizures, admitted on 01/17/2024 at [facility] for acute inpatient rehabilitation. Discharged in setting of acute mental status change, concernfor seizure, workup felt not consistent with seizure, episodes felt related to fatigue/stress. She functionally made progress with ongoing strength, balance, activity tolerance, and cognition below baseline. She planned for home with outpatient PT/OT/IMMIGRATION INVESTIGATOR. Past Medical History Past Medical History: Diagnosis Date Acute posthemorrhagic anemia ASD (atrial septal defect) 02/07/2017 Attention deficit hyperactivity disorder (ADHD), predominantly inattentive type 02/07/2017 Broncho-pulmonary dysplasia (H28) Cervicalgia COPD (chronic obstructive pulmonary disease) (H) DDD (degenerative disc disease), cervical 02/07/2017 Depressive disorder 2001 Lizy-Danlos syndrome Excessive or frequent menstruation 01/31/2006 Hospitalized Generalized anxiety disorder 10/08/2007 Hemorrhage complicating a procedure Herniated cervical disc 02/07/2017 History of blood transfusion 1994 History of stroke with residual effects 01/09/24 Found on MRI 01/13/24 Major depressive disorder, recurrent episode, severe (H) 10/22/2007 Problem list name updated by automated process. 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 (ABSTRACTED) pneumonia several times SURGICAL PATHOLOGY EXAM 02/2012 excision of lipoma on chest wall ZZC VAGINAL HYSTERECTOMY 01/30/06 acetaminophen (TYLENOL) 500 MG tablet albuterol (PROAIR HFA/PROVENTIL HFA/VENTOLIN HFA) 108 (90 Base) MCG/ACT inhaler aspirin (ASA) 325 MG EC tablet BREO ELLIPTA 200-25 MCG/INH Inhaler calcium carbonate (TUMS) 500 MG chewable tablet cetirizine (ZYRTEC) 10 MG tablet hydrOXYzine HCl (ATARAX) 50 MG tablet levETIRAcetam (KEPPRA) 750 MG tablet Lidocaine (LIDOCARE) 4 % Patch magnesium oxide 200 MG TABS methyl salicylate-menthol (ICY HOT) ointment psyllium (METAMUCIL) 28.3 % packet rosuvastatin (CRESTOR) 20 MG tablet senna-docusate (SENOKOT-S/PERICOLACE) 8.6-50 MG tablet traZODone (DESYREL) 50 MG tablet Allergies Allergen Reactions Codeine GI Disturbance Other Reaction(s): epigastric pain Mold Dizziness and GI Disturbance Bupropion GI Disturbance and Other (See Comments) Diarrhea and stomach ache Erythromycin GI Disturbance Family History Family History Problem Relation Age of Onset [...] Blood Disease No family hx of Social History Social History Tobacco Use Smoking status: Never Smokeless tobacco: Never Substance Use Topics Alcohol use: Not Currently Comment: minimal Drug use: No Past medical history, past surgical history, medications, allergies, family history, and social history were reviewed with the patient. No additional pertinent items. A medically appropriate review of systems was performed with pertinent positives and negatives noted in the HPI, and all other systems negative. Physical Exam BP: (!) 150/89 Pulse: 70 Temp: 97.5 ??F (36.4 ??C) Resp: 15 Weight: 98 kg (216 lb 0.8 oz) SpO2: 97 % Physical Exam General: Alert, sitting on the bed in NAD Neuro: Awake alert &O x 3 CN 2-12 intact with the exception of right bilateral hemianopia; no pronator drift present; strength 5/5 at elbow flexion; strength 5/5 at elbow extension with good gripstrength bilaterally; strength 5/5 at ankle dorsiflexion; strength 5/5 at ankle plantar flexion; tandem gait is in tact; [id number] is intact and symmetrical; per patient decreased sensation of the left arm and leg, otherwise sensation is intact to light touch throughout; reflexes are 2+ and symetrical at biceps; reflexes are 2+ and symetrical at knees Head: atraumatic, no maxillary no frontal sinus tenderness Nose: no rhinnhorea Eyes: Pupils 3mm equal round and reactive to light Mouth: mmm Neck: no carotid bruits Cardiovascular: regular; S1/S2 ; radial pulses equal and symmetrical Lungs: CTAB bilaterally Abdomen: soft non-tender +BS ED Course, Procedures, & Data Results for orders placed or performed during the hospital encounter of 02/04/24 CT Head w/o Contrast Status: None Narrative CT HEAD W/O CONTRAST 02/04/2024 2:42 PM History: Code Stroke to evaluate for potential thrombolysis and thrombectomy. PLEASE READ IMMEDIATELY. ICD-10: Comparison: Brain MRI/MRA 01/20/2024, head CT 01/14/2024, CTA 01/13/2020 Technique: Using multidetector thin collimation helical acquisition technique, axial, coronal and sagittal CT images from the skull base to the vertex were obtained without intravenous contrast. Findings: There is no intracranial hemorrhage, mass effect or midline shift. There is no focal loss of pollack-white matter differentiation, insular ribbon sign, or focally hyperdense artery to suggest acute infarction. The ventricles are proportionate to the cerebral sulci. The bony calvaria and the bones of the skull base appear normal. Left sphenoid locule mucosal thickening, debris and opacification.. Impression Impression: 1. No acute intracranial pathology. 2. ASPECT Score: 10/10. 3. Left sphenoid locule mucosal thickening and debris which can be seen with acute sinusitis. [Stroke Code Result: Negative. Finding was identified on 02/04/2024 2:[address] Vail was contacted by Dr. Ramirez on 02/04/2024 3:00 PM and verbalized understanding of the result. [facility] Stroke Communication Guidelines: [facility] ED: [phone] ([facility] ED) [facility] Inpatient: [phone] ext. [phone] (Stroke Ascom) [facility] ED or Inpatient: [phone] (WB ED) I have personally reviewed the examination and initial interpretation and I agree with the findings. MARLO CAIN MD CTA Head Neck with Contrast Status: None Narrative CTA HEAD NECK W CONTRAST, CT HEAD [...] Images were reconstructed and reviewed on the I-MD 3D workstation. HEAD and NECK CTA: Thereafter, postcontrast images were obtained from the aortic arch through the [place]. Axial images were obtained using thin collimation multidetector helical technique. This CT angiogram data was reconstructed at thin intervals with mild overlap. Images were sent to the [employer] workstation, and 3D reconstructions and multiplanar reformations were obtained with reconstructions performed by the technologist and the radiologist. The source images, multiplanar reformations, 3D reconstructions in both maximum intensity projection display and volume rendered models were reviewed, Contrast: 67cc of isovue 370 (accession [id number]), 50cc of isovue 370 (accession [id number]) Findings: CT Perfusion: Images documenting relative cerebral [...] tissues or lung apices. Multiple lung cysts. Impression Impression: 1. No evidence of ischemia or [...] agree with the findings. MARLO CAIN MD CT Head Perfusion w Contrast - For Tier 2 Stroke Status: None Narrative CTA HEAD NECK W CONTRAST, CT HEAD [...] Images were reconstructed and reviewed on the I-MD 3D workstation. HEAD and NECK CTA: Thereafter, postcontrast images were obtained from the aortic arch through the [place]. Axial images were obtained using thin collimation multidetector helical technique. This CT angiogram data was reconstructed at thin intervals with mild overlap. Images were sent to the [employer] workstation, and 3D reconstructions and multiplanar reformations were obtained with reconstructions performed by the technologist and the radiologist. The source images, multiplanar reformations, 3D reconstructions in both maximum intensity projection display and volume rendered models were reviewed, Contrast: 67cc of isovue 370 (accession [id number]), 50cc of isovue 370 (accession [id number]) Findings: CT Perfusion: Images documenting relative cerebral [...] tissues or lung apices. Multiple lung cysts. Impression Impression: 1. No evidence of ischemia or [...] agree with the findings. MARLO CAIN MD MR Brain w/o & w Contrast Status: None Narrative MR BRAIN W/O & W CONTRAST 02/04/2024 [...] relatively clear. The orbits are grossly unremarkable. Impression Impression: No acute intracranial pathology. Specifically, there is no evidence for acute infarct, hydrocephalus, mass lesion or intracranial hemorrhage. MARLO CAIN MD [place] Draw Status: None Narrative The following orders were created for panel order [place] Draw. Procedure Abnormality Status --------- ------ Extra Blue Top Tube[[id number]] Final result Extra Red Top Tube[[id number]] Final result Extra Green Top ([place]...[[id number]] Final result Extra Purple Top Tube[[id number]] Final result Please view results for these tests on the individual orders. Extra Blue Top Tube Status: None Result Value Ref Range Hold Specimen JIC Extra Red Top Tube Status: None Result Value Ref Range Hold Specimen JIC Extra Green Top ([place] Heparin) Tube Status: None Result Value Ref Range Hold Specimen JIC Extra Purple Top Tube Status: None Result Value Ref Range Hold Specimen JIC Glucose by meter Status: Normal Result Value Ref Range GLUCOSE BY METER POCT 93 70 - 99 mg/dL Basic metabolic panel Status: Normal Result Value Ref Range Sodium 138 135 - 145 mmol/L Potassium 4.7 3.4 - 5.3 mmol/L Chloride 101 98 - 107 mmol/L Carbon Dioxide (CO2) 27 22 - 29 mmol/L Anion Gap 10 7 - 15 mmol/L Urea Nitrogen 15.0 6.0 - 20.0 mg/dL Creatinine 0.79 0.51 - 0.95 mg/dL GFR Estimate >90 >60 mL/min/1.73m2 Calcium 9.6 8.6 - 10.0 mg/dL Glucose 96 70 - 99 mg/dL INR Status: Normal Result Value Ref Range INR 0.90 0.85 - 1.15 Partial thromboplastin time Status: Normal Result Value Ref Range aPTT 25 22 - 38 Seconds Troponin T, High Sensitivity Status: Normal Result Value Ref Range Troponin T, High Sensitivity <6 <=14 ng/L hCG Qualitative Status: Normal Result Value Ref Range hCG Serum Qualitative Negative Negative CBC with platelets and differential Status: None Result Value Ref Range WBC Count 8.2 4.0 - 11.0 10e3/uL RBC Count 4.63 3.80 - 5.20 10e6/uL Hemoglobin 14.5 11.7 - 15.7 g/dL Hematocrit 42.8 35.0 - 47.0 % MCV 92 78 - 100 fL MCH 31.3 26.5 - 33.0 pg MCHC 33.9 31.5 - 36.5 g/dL RDW 12.4 10.0 - 15.0 % Platelet Count 195 150 - 450 10e3/uL % Neutrophils 63 % % Lymphocytes 26 % % Monocytes 5 % % Eosinophils 5 % % Basophils 1 % % Immature Granulocytes 0 % NRBCs per 100 WBC 0 <1 /100 Absolute Neutrophils 5.2 1.6 - 8.3 10e3/uL Absolute Lymphocytes 2.1 0.8 - 5.3 10e3/uL Absolute Monocytes 0.4 0.0 - 1.3 10e3/uL Absolute Eosinophils 0.4 0.0 - 0.7 10e3/uL Absolute Basophils 0.0 0.0 - 0.2 10e3/uL Absolute Immature Granulocytes 0.0 <=0.4 10e3/uL Absolute NRBCs 0.0 10e3/uL Creatinine POCT Status: Normal Result Value Ref Range Creatinine POCT 0.9 0.5 - 1.0 mg/dL GFR, ESTIMATED POCT >60 >60 mL/min/1.73m2 EKG 12-lead, tracing only Status: None Result Value Ref Range Systolic Blood Pressure mmHg Diastolic Blood Pressure mmHg Ventricular Rate 88 BPM Atrial Rate 88 BPM AL Interval 180 ms QRS Duration 70 ms QT 416 ms QTc 503 ms P [place] 56 degrees R AXIS 65 degrees T [place] 29 degrees Interpretation ECG Sinus rhythm with occasional Premature ventricular complexes Possible Left atrial enlargement Nonspecific ST abnormality Abnormal ECG Unconfirmed report - interpretation of this ECG is computer generated - see medical record for final interpretation Confirmed by - EMERGENCY ROOM, PHYSICIAN ([id number]), editor magazine DEE DEE JACINTO ([id number]) on 02/05/2024 3:26:57 AM CBC with Platelets & Differential Status: None Narrative The following orders were created for panel order CBC with Platelets & Differential. Procedure Abnormality Status --------- ------ CBC with platelets and d...[[id number]] Final result Please view results for these tests on the individual orders. Medications iopamidol (ISOVUE-370) solution 117 mL (117 mLs Intravenous $Given 02/04/24 1425) And sodium chloride 0.9 % bag for CT scan flush use (100 mLs As instructed $Given 02/04/24 1425) gadobutrol (GADAVIST) injection 10 mL (10 mLs Intravenous $Given 02/04/24 4797) Labs Ordered and Resulted from Time of ED Arrival to Time of ED Departure GLUCOSE BY METER - Normal Result Value GLUCOSE BY METER POCT 93 BASIC METABOLIC PANEL - Normal Sodium 138 Potassium 4.7 Chloride 101 Carbon Dioxide (CO2) 27 Anion Gap 10 Urea Nitrogen 15.0 Creatinine 0.79 GFR Estimate >90 Calcium 9.6 Glucose 96 INR - Normal INR 0.90 PARTIAL THROMBOPLASTIN TIME - Normal aPTT 25 TROPONIN T, HIGH SENSITIVITY - Normal Troponin T, High Sensitivity <6 HCG QUALITATIVE - Normal hCG Serum Qualitative Negative ISTAT CREATININE POCT - Normal Creatinine POCT 0.9 GFR, ESTIMATED POCT >60 GLUCOSE MONITOR NURSING POCT CBC WITH PLATELETS AND DIFFERENTIAL WBC Count 8.2 RBC Count 4.63 Hemoglobin 14.5 Hematocrit 42.8 MCV 92 MCH 31.3 MCHC 33.9 RDW 12.4 Platelet Count 195 % Neutrophils 63 % Lymphocytes 26 % Monocytes 5 % Eosinophils 5 % Basophils 1 % Immature Granulocytes 0 NRBCs per 100 WBC 0 Absolute Neutrophils 5.2 Absolute Lymphocytes 2.1 Absolute Monocytes 0.4 Absolute Eosinophils 0.4 Absolute Basophils 0.0 Absolute Immature Granulocytes 0.0 Absolute NRBCs 0.0 MR Brain w/o & w Contrast Final Result Impression: No acute intracranial pathology. Specifically, there is no evidence for acute infarct, hydrocephalus, mass lesion or intracranial hemorrhage. MARLO CAIN MD CT Head Perfusion w Contrast - For Tier 2 Stroke Final Result Impression: 1. No evidence of ischemia or [...] agree with the findings. MARLO CAIN MD CT Head w/o Contrast Final Result Impression: 1. No acute intracranial pathology. 2. ASPECT Score: 10/10. 3. Left sphenoid locule mucosal thickening and debris which can be seen with acute sinusitis. [Stroke Code Result: Negative. Finding was identified on 02/04/2024 2:[address] Vail was contacted by Dr. Ramirez on 02/04/2024 3:00 PM and verbalized understanding of the result. [facility] Stroke Communication Guidelines: [facility] ED: [phone] (EB ED) [facility] Inpatient: [phone] ext. [phone] (Stroke Ascom) [facility] ED or Inpatient: [phone] (WB ED) I have personally reviewed the examination and initial interpretation and I agree with the findings. MARLO CAIN MD CTA Head Neck with Contrast Final Result Impression: 1. No evidence of ischemia or [...] agree with the findings. MARLO CAIN MD Critical care was not performed. Medical Decision Making Nursing note were reviewed. Past Medical records were reviewed. Differential diagnosis includes CVA(either ischemic or hemorrhagic), hypoglycemia, complex Migraine, COLOR MAKING SUPERVISOR infection, Mass, MS, drug intoxication, and Seizure with post- ictal Reese's paralysis. Blood sugar on arrival was normal and patient has no h/o of migraine but did have recent episodes, unclear if they were seizures which could be a possible etiology, Patient is currently afebrile with no evidence of focal infection per history and physical exam to indicate COLOR MAKING SUPERVISOR infection. Stat head CT and CT angio were ordered soon after history, physical and brief neuro exam. Imaging showed no evidence of acute stroke. Repeat neurological exam showed no change. Neurology was consulted and recommended follow-up MRI with and without contrast, and stated if MRI is negative patient would be okay to be discharged to home with close follow-up in clinic. However if is positive for acute stroke they would admit patient. NIHSS score on arrival was 5. EKG showed sinus rhythm with PVCs, no concerning ST elevation or depression. QTc was slightly elevated at 503, compared to EKG to the EKG done on January 19, 2024, there is minimal change. Except for more frequent PVCs with her old EKG. Labs were all unremarkable including CBC, CMP, PT, INR, troponin. Previous labs reviewed were similar, no significant metabolic abnormalities were found. MRI is pending at this time, my colleague Dr. Gonzalez will follow-up on MRI and disposition as noted above. The patient's presentation was of high complexity (a chronic illness severe exacerbation, progression, or side effect of treatment). The patient's evaluation involved: review of external note(s) from 3+ sources (see separate area of note for details) review of 3+ test result(s) ordered prior to this encounter (see separate area of note for details) ordering and/or review of 3+ test(s) in this encounter (see separate area of note for details) discussion of management or test interpretation with another health professional (see separate areaof note for details) The patient's management necessitated further care after sign-out to Peter Gonzalez (see their note for further management). Assessment & Plan (R20.0) Left sided numbness (H53.9) Vision abnormalities (R27.8) Coordination abnormal Plan: Dr. Gonzalez to follow-up on MRI, imaging is negative discharge to home, versus positive neurology will add it. I have reviewed the nursing notes. I have reviewed the findings, diagnosis, plan and need for follow up with the patient. Discharge Medication List as of 02/04/2024 7:00 PM Final diagnoses: Left sided numbness Vision abnormalities Coordination abnormal I, ANDREA POOLE, am serving as a trained caregivers non medical to document services personally performed byJovita Vail MD, based on the provider's statements to me. I, Jovita Vail MD, was physically present and have reviewed and verified the accuracy of this note documented by ANDREA POOLE. Jovita Vail MD [facility] 02/04/2024 Jovita Vail MD 02/05/24 0830 Jovita Vail MD 02/05/24 0832 documented in this encounter Miscellaneous Notes * Pharmacy-Consult Note - Raul Dye RPH - 02/04/2024 4:04 PM CDT Pharmacy Stroke Code Response Pharmacist responded as part of the Stroke Code Team activation to patient care area ED 7. The Stroke Team determined that the patient was not a candidate for IV thrombolytic therapy and the pharmacyteam was dismissed at 1430. Raul Dye RPH documented in this encounter Plan of Treatment Upcoming Encounters Date Type Department Care Team (Late st Contact Info) Description 02/26/2024 1:40 PM CDT Appointment [facility] [address] [place] [phone] Denise Woodson Ra, INTELLECTUAL PROPERTY LEGAL ASSISTANT SERVICE OR WORK DISPATCHER CHIEF [address] [place] [address] 02/26/2024 2:15 PM CDT Therapy Visit [address] [phone] Danya You, AMAIRANI [address] [place], [place] [phone] Charis Chacon SLP [facility] [address] [place] [address] 02/26/2024 3:00 PM CDT Therapy Visit [facility] [address] [place] [phone] Danya You PA [address] [place], [place] [phone] Isabel Beaulieu OTR [facility] [address] [place] [address] 02/27/2024 4:45 PM CDT Therapy Visit [facility] [address] [place] [phone] Danya You, PA [address] [place] [address] Vanessa Duggan, PT 03/05/2024 1:30 PM CDT Therapy Visit [address] [phone] Danya You, PA [address] [place] [address] Isabel Beaulieu OTR [address] [address] 03/05/2024 3:15 PM CDT Therapy Visit [address] [phone] Danya You, PA [address] [address] Charis Chacon, [facility] [address] [place] [address] 03/05/2024 4:15 PM CDT Therapy Visit [address] [phone] Danya You, PA [address] [place] [phone] Delicia George, PT [facility] [address] [place] [address] 03/11/2024 2:15 PM CDT Therapy Visit [address] [phone] Danya You, AMAIRANI [address] [address] Isabel Beaulieu OTJah [address] [address] 03/11/2024 3:00 PM CDT Therapy Visit [address] [phone] Danya You, PA [address] [place] [address] Charis Chacon, J[facility]AN [facility] [address] [place] [address] 03/11/2024 4:15 PM CDT Therapy Visit [address] [phone] Danya You, PA [address] [place] [address] Delicia George, PT [facility] [address] [place] [address] 03/17/2024 10:00 AM CDT Office Visit [facility] [address] [place] [address] Denise Woodson Ra, INTELLECTUAL PROPERTY LEGAL ASSISTANT SERVICE OR WORK DISPATCHER CHIEF [address] [place], [place] [phone] 03/17/2024 1:30 PM CDT Therapy Visit [facility] [address] [place] [phone] Danya You, AMAIRANI [address]50 [facility] [address] [place] [address] Isabel Beaulieu, OTR [facility] [address] [place] [address] 03/17/2024 2:30 PM CDT Therapy Visit [address] [phone] Danya You, PA [address]50 [facility] [address] [place] [address] Charis Chacon SLP [facility] [address] [place] [address] 03/17/2024 4:00 PM CDT Therapy Visit [address] [phone] Danya You, PA [address] [place] [address] Vanessa Duggan, PT 03/23/2024 10:30 AM CDT Office Visit [facility] [phone] [place] [phone] Denise Woodson Ra, INTELLECTUAL PROPERTY LEGAL ASSISTANT [facility] [address] [place] [address] 03/26/2024 1:30 PM CDT Therapy Visit [address] [phone] Danya You PA [address] [place] [address] Isabel Beaulieu, OTR [facility] [address] [address] 03/26/2024 2:30 PM CDT Therapy Visit [address] [phone] Danya You, AMAIRANI [address] [place] [address] [address] Charis Chacon, [facility] [address] [place] [address] 03/26/2024 3:30 PM CDT Therapy Visit [address] [phone] Danya You, PA [address] [place] [address] [address] Delicia George, PT [facility] [address] [place] [address] 04/02/2024 2:15 PM CDT Therapy Visit [address] [phone] Danya You, PA [address] [place] [address] [phone] Isabel Beaulieu, OTR [facility] [address] [address] 04/02/2024 3:15 PM CDT Therapy Visit [address] [phone] Danya You PA [address] [address] Charis Chacon SLP [facility] [address] [place] [address] 04/02/2024 4:15 PM CDT Therapy Visit [address] [phone] Danya You PA [facility] [address] [address] Delicia George, PT [address] [place] [address] [address] 04/09/2024 3:15 PM CDT Therapy Visit [address] [phone] Danya You, AMAIRANI [facility] [address] [address] Charis Chacon SLP [facility] [address] [place] [address] 04/09/2024 4:15 PM CDT Therapy Visit [address] [phone] Danya You PA [facility] [address] [address] Delicia George, PT [address] [place] [address] 04/15/2024 9:30 AM CDT Therapy Visit M [facility] [address] [place] [phone] Danya You, AMAIRANI [address] [place] [address] [place] [address] Danya Restrepo, IMMIGRATION INVESTIGATOR 04/23/2024 2:30 PM CDT Therapy Visit M [address] [phone] Danya You, PA [address] [place] [address] [address] Charis Chacon, [facility] [address] [place] [address] 05/05/2024 2:30 PM CDT Office Visit M [facility] Epilepsy [facility] [address], [address] [place] [phone] Rohit Barcenas MD [address] [facility] [address] [place] [address] 06/23/2024 11:00 AM CDT Virtual Visit M [facility] Mental Health & Addiction [facility] [address] [facility] [place] [phone] Kristin Vázquez, [facility] [address] [facility] [place] [phone] 06/30/2024 2:00 PM CDT Virtual Visit M [facility] [address] [facility] [place] [phone] Kristin Vázquez, [facility] [address] [facility] [place] [phone] documented as of this encounter Procedures Procedure Name Priority Date/Time Associated Diagnosis Comments MR BRAIN W/O & W CONTRAST STAT 02/04/2024 6:30 PM CDT EKG 12-LEAD, TRACING ONLY STAT 02/04/2024 2:[address] HEAD PERFUSION W CONTRAST STAT 02/04/2024 2:[address] HEAD W/O CONTRAST STAT 02/04/2024 2:42 PM CDT CTA HEAD NECK W CONTRAST STAT 02/04/2024 2:41 PM CDT ISTAT CREATININE POCT STAT 02/04/2024 1:51 PM CDT EXTRA TUBE STAT 02/04/2024 1:49 PM CDT EXTRA PURPLE TOP TUBE STAT 02/04/2024 1:49 PM CDT EXTRA GREEN TOP (LITHIUM HEPARIN) TUBE STAT 02/04/2024 1:49 PM CDT EXTRA RED TOP TUBE STAT 02/04/2024 1: 49 PM CDT EXTRA BLUE TOP TUBE STAT 02/04/2024 1 :49 PM CDT CBC WITH PLATELETS AND DIFFERENTIAL STAT 02/04/2024 1:49 PM CDT TROPONIN T, HIGH SENSITIVITY STAT 02/04/2024 1:49 PM CDT CBC WITH PLATELETS & DIFFERENTIAL STAT 02/04/2024 1:49 PM CDT INR STAT 02/04/2024 1:49 PM CDT PARTIAL THROMBOPLASTIN TIME STAT 02/04/2024 1:49 PM CDT HCG QUALITATIVE STAT 02/04/2024 1:49 PM CDT BASIC METABOLIC PANEL STAT 02/04/2024 1:49 PM CDT GLUCOSE BY METER STAT 02/04/2024 1:48 PM CDT documented in this encounter Results * MR Brain w/o & w Contrast (02/04/2024 6:30 PM CDT) Anatomical Region Laterality Modality Head, [...] hemorrhage. MARLO CAIN MD Jovita Vail MD IMG MRI ORDERABLES * EKG 12-lead, tracing only (02/04/2024 2:46 PM CDT) Systolic Blood Pressure mmHg RADIOLOGY RESULTS Diastolic Blood Pressure mmHg RADIOLOGY RESULTS Ventricular Rate 88 BPM RAD IOLOGY RESULTS Atrial Rate 88 BPM RADIOLOG Y RESULTS AL Interval 180 ms RADIOLOG Y RESULTS QRS Duration 70 ms RADIOLO GY RESULTS QT 416 ms RADIOLOGY RESULTS QTc 503 ms RADIOLOGY RESULTS P [place] 56 degrees RADIOLOGY RESULTS R AXIS 65 degrees RADIOLOGY RESULTS T [place] 29 degrees RADIOLOGY RESULTS Interpretation ECG Sinus rhythm with occasional Premature ventricular complexes Possible Left atrial enlargement Nonspecific ST abnormality Abnormal ECG Unconfirmed report - interpretation of this ECG is computer generated - see medical record for final interpretation Confirmed by - EMERGENCY ROOM, PHYSICIAN ([id number]), editor magazine DEE DEE JACINTO ([id number]) on 02/05/2024 3:26:57 AM RADIOLOGY RESULTS 02/04/2024 2:46 PM CDT 02/05/2024 3:26 AM CDT Jovita Vail MD ECG ORDERABLES RADIOLOGY RESULTS * CT Head Perfusion w Contrast - [...] ??Images were reconstructed and reviewed on the I-MD 3D workstation. HEAD and NECK CTA: Thereafter, postcontrast images were obtained from the aortic arch through the [place]. ??Axial images were obtained using thin collimation multidetector helical technique. This CT angiogram data was reconstructed at thin intervals with mild overlap. Images were sent to the [employer] workstation, and 3D reconstructions and multiplanar reformations were obtained with reconstructions performed by the technologist and the radiologist. The source images, multiplanar reformations, 3D reconstructions in both maximum intensity projection display and volume rendered models were reviewed, Contrast: 67cc of isovue 370 (accession [id number]), 50cc of isovue 370 (accession [id number]) Findings: CT Perfusion: Images documenting relative cerebral [...] Images were reconstructed and reviewed on the I-MD 3D workstation. HEAD and NECK CTA: Thereafter, postcontrast images were obtained from the aortic arch through the [place]. Axial images were obtained using thin collimation multidetector helical technique. This CT angiogram data was reconstructed at thin intervals with mild overlap. Images were sent to the [employer] workstation, and 3D reconstructions and multiplanar reformations were obtained with reconstructions performed by the technologist and the radiologist. The source images, multiplanar reformations, 3D reconstructions in both maximum intensity projection display and volume rendered models were reviewed, Contrast: 67cc of isovue 370 (accession [id number]), 50cc of isovue 370 (accession [id number]) Findings: CT Perfusion: Images documenting relative cerebral [...] findings. MARLO CAIN MD Jovita Vail MD [facility] CT ORDERABLES * CT Head w/o Contrast (02/04/2024 2:42 PM CDT) Anatomical Region Laterality Modality Head, SUBRAD CT NEURO, SUBRA D CT NEURO, P CT NEURO, RAD CT Computed Tomography Impressions 02/04/2024 3:19 PM CDT Impression: 1. No acute intracranial pathology. 2. ASPECT Score: 10/10. 3. Left sphenoid locule mucosal thickening and debris which can be seen with acute sinusitis. [Stroke Code Result: Negative. Finding was identified on 02/04/2024 2:[address] Vail was contacted by Dr. Ramirez on 02/04/2024 3:00 PM and verbalized understanding of the result. [facility] Stroke Communication Guidelines: [facility] ED: [phone] ( ED) [facility] Inpatient: [phone] ext. [phone] (Stroke Ascom) [facility] ED or Inpatient: [phone] ( ED) I have personally reviewed the examination and initial interpretation and I agree with the findings. MARLO CAIN MD Narrative 02/04/2024 3:[address] HEAD W/O CONTRAST 02/04/2024 2:42 PM History: ??Code Stroke to evaluate for potential thrombolysis and thrombectomy. PLEASE READ IMMEDIATELY. ICD-10: Comparison: Brain MRI/MRA 01/20/2024, head CT 01/14/2024, CTA 01/13/2020 Technique: Using multidetector thin collimation helical acquisition technique, axial, coronal and sagittal CT images from the skull base to the vertex were obtained without intravenous contrast. Findings: There is no intracranial hemorrhage, mass effect or midline shift. There is no focal loss of pollack-white matter differentiation, insular ribbon sign, or focally hyperdense artery to suggest acute infarction. The ventricles are proportionate to the cerebral sulci. The bony calvaria and the bones of the skull base appear normal. Left sphenoid locule mucosal thickening, debris and opacification.. Procedure Note Marlo Cain MD - 02/04/2024 CT HEAD W/O CONTRAST 02/04/2024 2:42 PM History: Code Stroke to evaluate for potential thrombolysis and thrombectomy. PLEASE READ IMMEDIATELY. ICD-10: Comparison: Brain MRI/MRA 01/20/2024, head CT 01/14/2024, CTA 01/13/2020 Technique: Using multidetector thin collimation helical acquisition technique, axial, coronal and sagittal CT images from the skull base to the vertex were obtained without intravenous contrast. Findings: There is no intracranial hemorrhage, mass effect or midline shift. There is no focal loss of pollack-white matter differentiation, insular ribbon sign, or focally hyperdense artery to suggest acute infarction. The ventricles are proportionate to the cerebral sulci. The bony calvaria and the bones of the skull base appear normal. Left sphenoid locule mucosal thickening, debris and opacification.. Impression: 1. No acute intracranial pathology. 2. ASPECT Score: 10/10. 3. Left sphenoid locule mucosal thickening and debris which can be seen with acute sinusitis. [Stroke Code Result: Negative. Finding was identified on 02/04/2024 2:[address] Vail was contacted by Dr. Ramirez on 02/04/2024 3:00 PM and verbalized understanding of the result. [facility] Stroke Communication Guidelines: [facility] ED: [phone] (EB ED) [facility] Inpatient: [phone] ext. [phone] (Stroke Ascom) [facility] ED or Inpatient: [phone] ([facility] ED) I have personally reviewed the examination and initial interpretation and I agree with the findings. MARLO CAIN MD Jovita Vail MD IMG CT ORDERABLES * CTA Head Neck with Contrast (02/04/2024 2:41 PM CDT) Anatomical Region Laterality Modality Head, SUBRAD CT NEURO, SUBRA D CT NEURO, [facility] CT NEURO, RAD CT Computed Tomography Impressions 02/04/2024 3:41 PM CDT [...] ??Images were reconstructed and reviewed on the I-MD 3D workstation. HEAD and NECK CTA: Thereafter, postcontrast images were obtained from the aortic arch through the [place]. ??Axial images were obtained using thin collimation multidetector helical technique. This CT angiogram data was reconstructed at thin intervals with mild overlap. Images were sent to the [employer] workstation, and 3D reconstructions and multiplanar reformations were obtained with reconstructions performed by the technologist and the radiologist. The source images, multiplanar reformations, 3D reconstructions in both maximum intensity projection display and volume rendered models were reviewed, Contrast: 67cc of isovue 370 (accession [id number]), 50cc of isovue 370 (accession [id number]) Findings: CT Perfusion: Images documenting relative cerebral [...] Images were reconstructed and reviewed on the [employer] 3D workstation. HEAD and NECK CTA: Thereafter, postcontrast images were obtained from the aortic arch through the [place]. Axial images were obtained using thin collimation multidetector helical technique. This CT angiogram data was reconstructed at thin intervals with mild overlap. Images were sent to the [employer] workstation, and 3D reconstructions and multiplanar reformations were obtained with reconstructions performed by the technologist and the radiologist. The source images, multiplanar reformations, 3D reconstructions in both maximum intensity projection display and volume rendered models were reviewed, Contrast: 67cc of isovue 370 (accession [id number]), 50cc of isovue 370 (accession [id number]) Findings: CT Perfusion: Images documenting relative cerebral [...] findings. MARLO CAIN MD Jovita Vail MD [facility] CT ORDERABLES * Creatinine POCT (02/04/2024 1:51 PM CDT) Creatinine POCT 0.9 0.5 - 1.0 mg/dL 02/04/2024 5:57 PM CDT [facility] POC GFR, ESTIMATED POCT >60 >60 mL/min/1.7 3m2 02/04/2024 5:57 PM CDT [facility] P[facility] Blood, venous BLOOD SPECIMEN / Unknown 02/04/2024 1:51 PM CDT 02/04/2024 5:57 PM CDT Jovita Vail MD LAB - BEAKER POCT [facility] POC [facility] [address] [facility], [address] [place] [phone] * CBC with platelets and differential (02/04/2024 1:49 PM CDT) [facility] WBC Count 8.2 4.0 - 11.0 10e3/uL 02/04/2024 2:27 PM CDT [facility] RBC Count 4.63 3.80 - 5.20 10e6/uL 02/04/2024 2:27 PM CDT [facility] Hemoglobin 14.5 11.7 - 15.7 g/dL 02/04/2024 2:27 PM CDT [facility] Hematocrit 42.8 35.0 - 47.0 % 02/04/2024 2:27 PM CDT [facility] MCV 92 78 - 100 fL 02/04/2024 2:27 PM CDT [facility] MCH 31.3 26.5 - 33.0 pg 02/04/2024 2:27 PM CDT [facility] MCHC 33.9 31.5 - 36.5 g/dL 02/04/2024 2:27 PM CDT [facility] RDW 12.4 10.0 - 15.0 % 02/04/2024 2:27 PM CDT [facility] Platelet Count 195 150 - 450 10e3/uL 02/04/2024 2:27 PM CDT [facility] % Neutrophils 63 % 02/04/2024 2:27 PM CDT [facility] % Lymphocytes 26 % 02/04/2024 2:27 PM CDT [facility] % Monocytes 5 % 02/04/2024 2:27 PM CDT [facility] % Eosinophils 5 % 02/04/2024 2:27 PM CDT [facility] % Basophils 1 % 02/04/2024 2:27 PM CDT [facility] % Immature Granulocytes 0 % 02/04/2024 2:27 PM CDT [facility] NRBCs per 100 WBC 0 <1 /100 024 2:27 PM CDT [facility] Absolute Neutrophils 5.2 1.6 - 8.3 10e3/uL 02/04/2024 2:27 PM CDT [facility] Absolute Lymphocytes 2.1 0.8 - 5.3 10e3/uL 02/04/2024 2:27 PM CDT [facility] Absolute Monocytes 0.4 0.0 - 1.3 10e3/uL 02/04/2024 2:27 PM CDT [facility] Absolute Eosinophils 0.4 0.0 - 0.7 10e3/uL 02/04/2024 2:27 PM CDT [facility] Absolute Basophils 0.0 0.0 - 0.2 10e3/uL 02/04/2024 2:27 PM CDT [facility] Absolute Immature Granulocytes 0.0 <=0.4 10e3/uL 02/04/2024 2:27 PM CDT [facility] Absolute NRBCs 0.0 10e3/uL 02/04/2024 2:27 PM CDT [facility] Blood VENOUS LINE / Unknown Venipuncture / Unknown 02/04/2024 1:49 PM CDT 02/04/2024 2:03 PM CDT Jovita Vail MD LAB - BLOOD ORDERABL ES [facility] [address] [facility], [address] [place] [address] * hCG Qualitative (02/04/2024 1:49 PM CDT) hCG Serum Qualitative Negative Negative PRATEEK 02/04/2024 2:45 PM CDT [facility] Comment:This test is for scr eening purposes. Results should be interpreted along with the clinical picture. Confirmation testing is available if warranted by ordering [id number], HCG Quantitative . Blood VENOUS LINE / Unknown Venipuncture / Unknown 02/04/2024 1:49 PM CDT 02/04/2024 2:02 PM CDT Jovita Vail MD LAB - BLOOD ORDERABL ES Performing Organization Address City/[facility]/ZIP Co de Phone Number LABORATORY [facility] [address] [facility], [address] [phone] [place] [address] * Troponin T, High Sensitivity (02/04/2024 1:49 PM CDT) Troponin T, High Sensitivity <6 <=14 ng/L 02/04/2024 2:46 PM CDT [facility] Comment: Either a High Sensitivity Troponin [...] follow-up, or urgent outpatient provocative testing. Blood VENOUS LINE / Unknown Venipuncture / Unknown 02/04/2024 1:49 PM CDT 02/04/2024 2:02 PM CDT Jovita Vail MD LAB - BLOOD ORDERABL ES LABORATORY [facility] [address] [facility], [address] [phone] * Partial thromboplastin time (02/04/2024 1:49 PM CDT) aPTT 25 22 - 38 Seconds 02/04/2024 2:41 PM CDT [facility] Blood VENOUS LINE / Unknown Venipuncture / Unknown 02/04/2024 1:49 PM CDT 02/04/2024 2:03 PM CDT Jovita Vail MD LAB - BLOOD ORDERABL ES Performing Organization Address City/[facility]/ZIP Co de Phone Number [facility] [address] [facility], [address] * INR (02/04/2024 1:49 PM CDT) INR 0.90 0.85 - 1.15 02/04/2024 2:41 PM CDT [facility] Blood VENOUS LINE / Unknown Venipuncture / Unknown 02/04/2024 1:49 PM CDT 02/04/2024 2:03 PM CDT Jovita Vail MD LAB - BLOOD ORDERABL ES Performing Organization Address City/[facility] Co de Phone Number [facility] [address] [facility], [address] * Basic metabolic panel (02/04/2024 1:49 PM CDT) Sodium 138 135 - 145 mmol/L 02/04/2024 2:46 PM CDT [facility] Comment:Reference intervals for this test were updated on 06/11/2023 to more accurately reflect our healthy population. There may be differences in the flagging of prior results with similar values performed with this method. Interpretation of those prior results can be made in the context of the updated reference intervals. Potassium 4.7 3.4 - 5.3 mmol/L 02/04/2024 2:46 PM CDT [facility] Chloride 101 98 - 107 mmol/L 02/04/2024 2:46 PM CDT [facility] Carbon Dioxide (CO2) 27 22 - 29 mmol/L 02/04/2024 2:46 PM CDT [facility] Anion Gap 10 7 - 15 mmol/L 02/04/2024 2:46 PM CDT [facility] Urea Nitrogen 15.0 6.0 - 20.0 mg/dL 02/04/2024 2:46 PM CDT [facility] Creatinine 0.79 0.51 - 0.95 mg/dL 02/04/2024 2:46 PM CDT [facility] GFR Estimate >90 >60 mL/min/1. 73m2 02/04/2024 2:46 PM CDT [facility] Calcium 9.6 8.6 - 10.0 mg/dL 02/04/2024 2:46 PM CDT [facility] Glucose 96 70 - 99 mg/dL 02/04/2024 2:46 PM CDT [facility] Blood VENOUS LINE / Unknown Venipuncture / Unknown 02/04/2024 1:49 PM CDT 02/04/2024 2:02 PM CDT Jovita Vail MD LAB - BLOOD ORDERABL ES Performing Organization Address City/[facility]/ZIP Co de Phone Number [facility] [address] [facility], [address] * Extra Purple Top Tube (02/04/2024 1:49 PM CDT) Hold Specimen [facility] 02/04/2024 3:16 PM CDT [facility] Blood VENOUS LINE / Unknown Venipuncture / Unknown 02/04/2024 1:49 PM CDT 02/04/2024 2:03 PM CDT Jovita Vail MD LAB - BLOOD ORDERABL ES [facility] [address] [facility], [address] * Extra Green Top ([place] Heparin) Tube (02/04/2024 1:49 PM CDT) Hold Specimen [facility] 02/04/2024 3:16 PM CDT [facility] Blood VENOUS LINE / Unknown Venipuncture / Unknown 02/04/2024 1:49 PM CDT 02/04/2024 2:02 PM CDT Jovita Vail MD LAB - BLOOD ORDERABL ES [facility] [address] [facility], [address] [phone] * Extra Red Top Tube (02/04/2024 1:49 PM CDT) Hold Specimen [facility] 02/04/2024 3:16 PM CDT [facility] Blood VENOUS LINE / Unknown Venipuncture / Unknown 02/04/2024 1:49 PM CDT 02/04/2024 2:02 PM CDT Jovita Vail MD LAB - BLOOD ORDERABL ES Performing Organization Address City/[facility]/ZIP Co de Phone Number U [facility] [address] [facility], [address] [address] * Extra Blue Top Tube (02/04/2024 1:49 PM CDT) Hold Specimen [facility] 02/04/2024 3:16 PM CDT [facility] Blood VENOUS LINE / Unknown Venipuncture / Unknown 02/04/2024 1:49 PM CDT 02/04/2024 2:03 PM CDT Jovita Vail MD LAB - BLOOD ORDERABL ES [facility]ORY [facility] [address] [facility], [address] [phone] * Glucose by meter (02/04/2024 1:48 PM CDT) GLUCOSE BY METER POCT 93 70 - 99 mg/dL 02/04/2024 1:55 PM CDT [facility] POC Blood, Capillary BLOOD SPECIMEN / Unknown 02/04/2024 1:48 PM CDT 02/04/2024 1:55 PM CDT Jovita Vail MD LAB - AJ POCT [facility] POC [facility] [address] [facility], [address] [place] [address], [facility] documented in this encounter Visit Diagnoses Diagnosis Left sided numbness Disturbance of skin sensation Vision abnormalities Unspecified visual loss Coordination abnormal Lack of coordination documented in this encounter Administered Medications Inactive Administered Medications - up to 3 most recent administrations Medication Order MAR Action Action Date Dose Rate Site acetaminophen (TYLENOL) tablet 1,000 mg 1,000 mg, Oral, EVERY 4 HOURS PRN, mild pain, fever, Starting on Sat02/04/24 at 1857, Maximum acetaminophen dose from all sources = 75 mg/kg/day not to exceed 4 gram $Given 02/04/2024 6:59 PM CDT 1,000 mg gadobutrol (GADAVIST) injection 10 mL 10 mL, Intravenous, ONCE, On Sat02/04/24 at 1810, For 1 dose $Given 02/04/2024 6:32 PM CDT 10 mLs iopamidol (ISOVUE-370) solution 117 mL 117 mL, Intravenous, ONCE, On Sat02/04/24 at 1420, For 1 dose, To be administered by Imaging staff during CTA Head/Neck scan, and CT Head Perfusion scan, if performed. $Given 02/04/2024 2:25 PM CDT 117 mLs sodium chloride 0.9 % bag for CT scan flush use As instructed, 100 mL, ONCE, On Sat02/04/24 at 1420, For 1 dose, This entry is for use by Radiology to intermittently used as a flush in patients receiving a CT scan. $Given 02/04/2024 2:25 PM CDT 100 mLs documented in this encounter Active and Recently Administered Medications Times are shown in CDT. Scheduled Medication Order 02/02/2024 02/03/2024 02/04/2024 gadobutrol (GADAVIST) injection 10 mL (COMPLETED) 10 mL, Intravenous, ONCE, On Sat02/04/24 at 1810, For 1 dose 1832 ($Given - Provi andreia: Vlad Syed) iopamidol (ISOVUE-370) solution 117 mL (COMPLETED)(Linked Group 1) 117 mL, Intravenous, ONCE, On 02/04/24 at 1420, For 1 dose, To be administered by Imaging staff during CTA Head/Neck scan, and CT Head Perfusion scan, if performed. 1425 ($Given - Provi andreia: Deric Shrestha) sodium chloride 0.9 % bag for CT scan flush use (COMPLETED)(Linked Group 1) As instructed, 100 mL, ONCE, On Sat02/04/24 at 1420, For 1 dose, This entry is for use by Radiology to intermittently used as a flush in patients receiving a CT scan. 1425 ($Given - Provi andreia: Deric Shrestha) PRN Medication Order 02/02/2024 02/03/2024 02/04/2024 acetaminophen (TYLENOL) tablet 1,000 mg 1,000 mg, Oral, EVERY 4 HOURS PRN, mild pain, fever, Starting on Sat02/04/24 at 1857, Maximum acetaminophen dose from all sources = 75 mg/kg/day not to exceed 4 gram 1859 ($Given - Provi andreia: Denzel Schmitz RN) Linked Groups Order Group 1: iopamidol (ISOVUE-370) solution 117 mL (COMPLETED)Jump to med 117 mL, Intravenous, ONCE, On e 02/04/24 at 1420, For 1 dose, To be administered by Imaging staff during CTA Head/Neck scan, and CT Head Perfusion scan, if performed. And sodium chloride 0.9 % bag for CT scan flush use (COMPLETED)Jump to med As instructed, 100 mL, ONCE, On Sat02/04/24 at 1420, For 1 dose, This entry is for use by Radiology to intermittently used as a flush in patients receiving a CT scan. documented in this encounter Additional Health Concerns Assessment Noted Time PHQ-9 Depression Total Score: 15 024 10:47 AM CDT documented as of this encounter Care Teams [employer] Relationship Specialty Start Date End Date Winston Villatoro OD [facility] [address] [facility] [address] [place] [address] PCP - Ophthalmology Ophthalmology 02/11/13 Denise Woodson Ra, APRN SERVICE OR WORK DISPATCHER CHIEF [id number] [address] [id number] PCP - General Family Practice 09/21/20 Denise Woodson Ra, APRN SERVICE OR WORK DISPATCHER CHIEF [id number] [address] [id number] Assigned PCP 07/17/20 Usha Simon APRN SERVICE OR WORK DISPATCHER CHIEF [address] [facility] [address] Nurse Practitioner Neurological Surgery 01/24/24 Dangelo Salinas MD [address] [place] [address] Neurology 01/27/24 documented as of this encounter
--- OUTSIDE RECORDS SUMMARY | 2024-02-22 15:22 | XMS_ITS | Encounter Summary ---
Author Organization [facility] Address [address] [place] [address] Care Team Providers Care Physics Faculty Member Name Role Phone ShaunaWinston OD Unavailable [phone] Denise Woodson Ra, APRN FISHERIES TECHNICIAN Unavailable [phone] Denise Woodson Ra, APRN FISHERIES TECHNICIAN Primary Care Provid er Usha Simon APRN FISHERIES TECHNICIAN Unavailable + [phone] Dangelo Salinas MD Unavailable Usha Simon APRN FISHERIES TECHNICIAN Unavailable + [phone] Anastasia Stearns RN Unavailable [phone] Reason for Referral * Care Coordination (Urgent: 3-5 Days) - Pending Review Specialty Diagnoses / Procedures Referred By Contac t Referred To Contact Diagnoses Fibromuscular dysplasia (H24) Cerebrovascular accident (CVA), unspecified mechanism (H) Denise Woodson Ra, SWIMMING POOL MAINTENANCE SUPERVISOR FISHERIES TECHNICIAN [address] [place] [address] Referral ID Status Reason Start Date Expiration Date V isits Requested Visits Authorized [id number] Pending Review 02/06/2024 02/05/2025 1 1 Question Answer Reason for Referral: Patient/Caregiver Support, Complex Medical Concerns/Education Complex Medical Concerns: New Diagnosis - Use Comments - recent stroke, new dx of fibromuscular dysplasia. stroke was related to procedure. Patient/Caregiver Suport: Other - Use Comments - organization of appts. Clinical Staff have discussed the Care Coordination Referral with the patient and/or caregiver: Yes Comments * Consultation (Urgent: 3-5 Days) - Pending Review Specialty Diagnoses / Procedures Referred By [facility] Referred To Contact Diagnoses Fibromuscular dysplasia (H24) Cerebrovascular accident (CVA), unspecified mechanism (H) Denise Woodson Ra, APRN CNP [address] [place] [address] Referral ID Status Reason Start Date Expiration Date V isits Requested Visits Authorized [id number] Pending Review 02/06/2024 02/05/2025 1 1 Question Answer Reason for Referral: Epilepsy/Seizures Scheduling Instructions: [facility] will call you to coordinate your care as prescribed by your provider. If you don't hear from a territory sales representative within 2 business days, please call . Additional Information: Recent stroke. question whether there was a seizure or not, started on keppra. would like to discontinue aric due to side effects if seizure did not occur. Comments Please be aware that coverage of these services is subject to the terms and limitations of your health insurance plan. Call member services at your health plan with any benefit or coverage questions. [employer] will call you to coordinate your care as prescribed by your provider. If you don't hear from a territory sales representative within 2 business days, please call . * Diagnostic Imaging CT Scan (Routine) - Authorized Specialty Diagnoses / Procedures Referred By [facility] t Referred To Contact Radiology. Diagnoses Fibromuscular dysplasia (H24) Procedures CTA Chest Abdomen Pelvis w Contrast Denise Woodson Ra, APRN CNP [address] [place] [address] Referral ID Status Reason Start Date Expiration Date V isits Requested Visits Authorized [id number] Authorized 02/06/2024 02/05/2025 1 1 Reason for Visit * Reason Comments Hospital F/U Encounter Details Date Type Department Care Team (Late st Contact Info) Description 02/06/2024 8:30 AM CDT Office Visit [facility] [address] [place] [phone] Denise Woodson Ra, SWIMMING POOL MAINTENANCE SUPERVISOR FISHERIES TECHNICIAN [address] [place] [address] Fibromuscular dysplasia (H24) (Primary Dx); Cerebrovascular accident (CVA), unspecified mechanism (H); TSH elevation Social History Tobacco Use Types Packs/Day Years [...] Sign Reading Time Taken Comments Blood Pressure 117/82 02/06/2024 8:28 AM CDT Pulse 72 02/06/2024 8:28 AM CDT Temperature 36.4 ??C (97.6 ??F) 02/06/2024 8:28 AM CD T Respiratory Rate 14 02/06/2024 8:28 AM CDT Oxygen Saturation 96% 02/06/2024 8:28 AM CDT Inhaled Oxygen Concentration - - Weight 98.1 kg (216 lb 3.2 oz) 02/06/2024 8:28 A M CDT Height 174 cm (5' 8.5) 02/06/2024 8:28 AM CDT Body Mass Index 32.39 02/06/2024 8:28 AM CDT documented in this encounter Patient Instructions * Patient Instructions* Denise Woodson Ra, APRN CNP - 02/06/2024 8:30 AM CDT If you need me for anything please send a my chart message. You will likely get a nurse from another location. If they suggest an appointment, ask for the message to be sent to my team in [place] directly. Otherwise, I will not know that you were trying to reach out. You will also be contacted by a personal care aide shortly. They can help with scheduling and organizing appointments. Radiology is going to contact you to schedule the imaging I have ordered related to the fibromuscular dysplasia. We will work to get you scheduled with neurology as soon as possible. documented in this encounter Progress Notes * Denise Woodson Ra, APRN CNP - 02/06/2024 8:30 AM CDT Assessment & Plan Fibromuscular dysplasia (H24) Needs additional imaging to rule out other areas of concern. Ordered. - CTA Chest Abdomen Pelvis w Contrast; Future - Adult Neurology Film Critic Referral; Future - Primary Care - Care Coordination Referral; Future Cerebrovascular accident (CVA), unspecified mechanism (H) Following with neurology. PT, OT. - Adult Neurology Film Critic Referral; Future - Primary Care - Care Coordination Referral; Future TSH elevation Will recheck in another 1-2 months. - TSH with free T4 reflex; Future MED REC REQUIRED Post Medication Reconciliation Status: BMI Estimated body mass index is 32.39 kg/m?? as calculated from the following: Height as of this encounter: 1.74 m (5' 8.5). Weight as of this encounter: 98.1 kg (216 lb 3.2 oz). Juan M Rondon is a 48 year old, presenting for the following health issues: Hospital F/U 02/06/2024 8:21 AM Additional Questions Roomed by MR Accompanied by NA 02/06/2024 8:21 AM Patient Reported Additional Medications Patient reports taking the following new medications NA HPI Concerns: Wants to get off keppra and Crestor- they put her on them when she first had the stroke Side affects from keppra Neuro thinks she most likely didn't have seizure so she doesn't know why she has to be on Keppra 2. When can she drive? She needs transport help right now Hospital Follow-up Visit: Hospital/Intermediate/IP Rehab Facility: [facility] Date of Admission: 01/22/24 Date of Discharge: 01/26/24 Reason(s) for Admission: CVA Was the patient in the ICU or did the patient experience delirium during hospitalization? No Do you have any other stressors you would like to discuss with your provider? Transportation Concerns and Health Concerns Problems taking medications regularly: None Medication changes since discharge: None Problems adhering to non-medication therapy: None Summary of hospitalization: [facility] hospital discharge summary reviewed Diagnostic Tests/Treatments reviewed. Follow up needed: neurosurgery, neurology, PT, OT. Other Healthcare Providers Involved in Patient???s Care: Physical Therapy Update since discharge: stable. 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 She was started on Levetiracet am. She was admitted to [facility] between 01/16- 01/19/2024 for acute inpatient [...] as was suggested on outside report 01/09/2024. Since that time she has been receiving OT and PT. She feels slow improvement. Work is very important to her and requires a high level of concentration and focus and attention todetail. Because of this, she is extremely motivated to achieve full recovery. 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 She is having issues with her keppra. She would like to stop this and her rosuvastatin. She believes there was not a true seizure, as neurology communicated this with her, but nobody has explicitly told her she can discontinue this. Plan of care communicated with patient and family Review of Systems Constitutional, HEENT, cardiovascular, pulmonary, gi and gu systems are negative, except as otherwise noted. Objective BP 117/82 (BP Location: Right arm, Patient Position: Sitting, Cuff Size: Adult Regular) Pulse 72 Temp 97.6 ??F (36.4 ??C) (Oral) Resp 14 Ht 1.74 m (5' 8.5) Wt 98.1 kg (216 lb 3.2 oz) LMP01/07/2006 SpO2 96% BMI 32.39 kg/m?? Body mass index is 32.39 kg/m??. Physical Exam GENERAL: alert and no distress EYES: Eyes grossly normal to inspection, PERRL and conjunctivae and sclerae normal NECK: no adenopathy, no asymmetry, masses, or scars RESP: lungs clear to auscultation - no rales, rhonchi or wheezes CV: regular rate and rhythm, normal S1 S2, no S3 or S4, no murmur, click or rub, no peripheral edema NEURO: Normal strength and tone, sensory exam grossly normal, mentation intact, cranial nerves 2-12intact, and rapid alternating movements normal PSYCH: mentation appears normal, affect normal/bright Signed Electronically by: Denise Woodson APRN CNP documented in this encounter Plan of Treatment Upcoming Encounters Date Type Department Care Team (Late st Contact Info) Description 02/26/2024 1:40 PM CDT Appointment [facility] Imaging [address] [facility] [address] [place] [address] Denise Woodson Ra, SWIMMING POOL MAINTENANCE SUPERVISOR FISHERIES TECHNICIAN [address] [facility] [place] [address] 02/26/2024 2:15 PM CDT Therapy Visit [facility] [address] [place] [phone] Danya You, PA [address] [address] Charis Chacon, MANAGER [facility] [address] [place] [address] 02/26/2024 3:00 PM CDT Therapy Visit [address] [phone] Danya You, AMAIRANI [address] [address] Isabel Beaulieu, OTR [address] [address] 02/27/2024 4:45 PM CDT Therapy Visit [address] [phone] Danya You, PA [facility] [address] [address] Vanessa Duggan, PT 03/05/2024 1:30 PM CDT Therapy Visit [address] [phone] Danya You, PA [address] [id number] Isabel Beaulieu, OTR [facility] [address] [place] [address] 03/05/2024 3:15 PM CDT Therapy Visit [facility] [address] [place] [phone] Danya You, AMAIRANI [address] [address] Charis Chacon, JUAN [facility] [address] [place] [address] 03/05/2024 4:15 PM CDT Therapy Visit [facility] [address] [place] [phone] Danya You, PA [address] [address] Delicia George, PT [facility] [address] [place] [address] 03/11/2024 2:15 PM CDT Therapy Visit [facility] [address] [place] [phone] Danya You, PA [address] [place] [address] Isabel Beaulieu, OTR [facility] [address] [place] [address] 03/11/2024 3:00 PM CDT Therapy Visit [facility] [address] [place] [phone] Danya You, PA [address] [address] Charis Chacon SLP [facility] [address] [place] [address] 03/11/2024 4:15 PM CDT Therapy Visit [address] [phone] [place] [address] [address] Delicia George, PT [facility] [address] [address] 03/17/2024 10:00 AM CDT Office Visit [facility] [address] [place] [phone] Denise Woodson Ra, SWIMMING POOL MAINTENANCE SUPERVISOR FISHERIES TECHNICIAN [address] [place], [place] [address] 03/17/2024 1:30 PM CDT Therapy Visit [address] [phone] Danya You, PA [address] [address] Isabel Beaulieu OTR [address] [address] 03/17/2024 2:30 PM CDT Therapy Visit [facility] [address] [place] [phone] Danya You, PA [address] [place] [address] Charis Chacon SLP [facility] [address] [place] [address] 03/17/2024 4:00 PM CDT Therapy Visit [address] [phone] Danya You, AMAIRANI [address] [place] [address] Vanessa Duggan, PT 03/23/2024 10:30 AM CDT Office Visit [facility] [address] [place] [address] Denise Woodson Ra, SWIMMING POOL MAINTENANCE SUPERVISOR FISHERIES TECHNICIAN [address] [place] [address] 03/26/2024 1:30 PM CDT Therapy Visit [address] [phone] Danya You, PA [address] [place] [address] Isabel Beaulieu, OTR [address] [address] 03/26/2024 2:30 PM CDT Therapy Visit [address] [phone] Danya You, PA [address] [place] [address] Charis Chacon, JUAN [facility] [address] [place] [address] 03/26/2024 3:30 PM CDT Therapy Visit [facility] [address] [place] [address] Danya You PA [address] [place] [address] Delicia George, PT [facility] [address] [address] 04/02/2024 2:15 PM CDT Therapy Visit [address] [phone] Danya You, AMAIRANI [address] [place] [address] Isabel Beaulieu, JAIMIE [address] [address] 04/02/2024 3:15 PM CDT Therapy Visit [address] [phone] Danya You, PA [address] [place] [place] [address] Charis Chacon, JUAN [facility] [address] [place] [address] 04/02/2024 4:15 PM CDT Therapy Visit [address] [phone] Danya You, PA [address] [place] [address] Delicia George, PT [address] [address] 04/09/2024 3:15 PM CDT Therapy Visit [address] [phone] Danya You, AMAIRANI [address] [place] [address] Charis Chacon, J[facility]AN [facility] [address] [place] [address] 04/09/2024 4:15 PM CDT Therapy Visit [address] [phone] Danya You, PA [address] [place] [address] Delicia George, PT [address] [address] 04/15/2024 9:30 AM CDT Therapy Visit [address] [phone] Danya You, PA [address] [place] [address] Danya Restrepo, JUAN 04/23/2024 2:30 PM CDT Therapy Visit [address] [phone] Danya You, AMAIRANI [address] [facility] [address] [place] [address] Charis Chacon, JUAN [facility] [address] [place] [address] 05/05/2024 2:30 PM CDT Office Visit [facility] Epilepsy [facility] [address], [address] [place] [phone] Rohit Barcenas MD [address] [facility] [address] [place], [place] [address] 06/23/2024 11:00 AM CDT Virtual Visit [facility] [address] [place] [address] Kristin Vázquez, [facility] [address] [place] [address] 06/30/2024 2:00 PM CDT Virtual Visit [facility] [address] [place] [address] Kristin Vázquez, [facility] [address] [place] [address] Scheduled Orders Name Type Priority Associated Diagnoses Orde r Schedule CTA Chest Abdomen Pelvis w Contrast Imaging Routine Fibromuscular dysplasia (H24) Expected: 02/06/2024 (Approximate), Expires: 02/05/2025 TSH with free T4 reflex Lab Routine TSH elevation Expected: 02/06/2024 (Approximate), Expires: 02/05/2025 Scheduled Referrals Name Type Priority Associated Diagnoses Orde r Schedule Adult Neurology Film Critic Referral Referral Urgent: 3-5 Days Fibromuscular dysplasia (H24) Cerebrovascular accident (CVA), unspecified mechanism (H) Expected: 02/06/2024 (Approximate), Expires: 02/05/2025 Primary Care - Care Coordination Referral Referral Urgent: 3-5 Days Fibromuscular dysplasia (H24) Cerebrovascular accident (CVA), unspecified mechanism (H) Expected: 02/06/2024 (Approximate), Expires: 02/05/2025 documented as of this encounter Visit Diagnoses Diagnosis Fibromuscular dysplasia (H24)- Primary Other specified disorders of arteries and arterioles Cerebrovascular accident (CVA), unspecified mechanism (H) TSH elevation Other abnormal blood chemistry documented in this encounter Additional Health Concerns Assessment Noted Time PHQ-9 Depression Total Score: 14 024 9:33 AM CDT documented as of this encounter Care Teams Physics Faculty Member Relationship Specialty Start Date End Date Winston Villatoro OD [facility] [place] [address] [facility] [address] [place] [address] PCP - Ophthalmology Ophthalmology 02/11/13 Denise Woodson Ra, APRN FISHERIES TECHNICIAN [address] [place] [address] PCP - General Family Practice 09/21/20 Denise Woodson Ra, APRN FISHERIES TECHNICIAN [address] [facility] [place] [address] Assigned PCP 07/17/20 Usha Simon APRN FISHERIES TECHNICIAN [address] [place] [address] Nurse Practitioner Neurological Surgery 01/24/24 Dangelo Salinas MD [address] [place] [address] Neurology 01/27/24 Usha Simon APRN FISHERIES TECHNICIAN [address] [place] [address] Assigned Neuroscience Provider 02/06/24 Anastasia Stearns RN Lead Door Liner 02/06/24 documented as of this encounter
--- OUTSIDE RECORDS SUMMARY | 2024-02-22 15:22 | XMS_ITS | Encounter Summary ---
Author Organization [facility] Address [address] [place] [address] Care Team Providers Care Utility Person Name Role Phone Winston Villatoro OD Unavailable [phone] Denise Woodson Ra, APRN RELIEF PHARMACIST Unavailable + [phone] Denise Woodson Ra HAT BODY SORTER RELIEF PHARMACIST Primary Care Provid er Usha Simon APRN RELIEF PHARMACIST Unavailable + [phone] Dangelo Salinas MD Unavailable Usha Simon APRN RELIEF PHARMACIST Unavailable +- [phone] Anastasia Stearns RN Unavailable [phone] Reason for Referral * Mental Health Outpatient (Urgent: 3-5 Days) - Pending Review Specialty Diagnoses / Procedures Referred By Contac t Referred To Contact Behavioral Health Diagnoses History of seizure Cerebrovascular accident (CVA), unspecified mechanism (H) Depression, unspecified depression type Raul Hoyos MD [address] [place] [address] [id number] [place] [address] Referral ID Status Reason Start Date Expiration Date V isits Requested Visits Authorized [id number] Pending Review 02/04/2024 02/03/2025 1 1 Question Answer Services: Assess/Evaluate for appropriate service (non-medication assessment) My Clinical Question Is: Patient scored high on PHQ-9 Scheduling Instructions: [facility] will call you to coordinate your care as prescribed by your provider. If you don't hear from a contact center representative within 2 business days, please call . Only select yes if the patient has already been scheduled and requires a referral for insurance. If yes is selected, the referral will NOT route to scheduling for outreach. No Comments Please be aware that coverage of these services is subject to the terms and limitations of your health insurance plan. Call member services at your health plan with any benefit or coverage questions. [facility] will call you to coordinate your care as prescribed by your provider. If you don't hear from a contact center representative within 2 business days, please call . Reason for Visit * Reason Comments Consult * Consultation (Routine: Next available opening) - Pending Review Specialty Diagnoses / Procedures Referred By Contac t Referred To Contact Diagnoses Seizure-like activity (H) History of seizure Cerebrovascular accident (CVA), unspecified mechanism (H) Delisa Manuel MD [address] [place] [id number] Referral ID Status Reason Start Date Expiration Date V isits Requested Visits Authorized [id number] Pending Review 01/22/2024 01/21/2025 1 1 Encounter Details Date Type Department Care Team ([facility] Contact Info) Description 02/04/2024 11:00 AM CDT Virtual Visit [facility] [address] [place] [address] Raul Hoyos MD [address] [place] [address] [id number] [place] [address] Depression, unspecified depression type (Primary Dx); Seizure-like activity (H); History of seizure; Cerebrovascular accident (CVA), unspecified mechanism (H) Social [...] - Inhaled Oxygen Concentration - - Weight 97.5 kg (215 lb) 02/04/2024 10:47 AM CDT Height 174 cm (5' 8.5) 02/04/2024 10:47 AM CDT Body Mass Index 32.22 02/04/2024 10:47 AM CDT documented in this encounter Patient Instructions * Patient Instructions* Meche De La Cruz RN - 02/04/2024 11:00 AM CDT Patient will go to [facility] ER Stroke & Endovascular RN Care Coordinators: Stacey Kelley RN, BSN Meche De La Cruz RN, CNRN, SCRN If you have any questions please contact the RN Care Coordinators at [phone], option 1. Thank you for choosing [facility] for your health care needs. documented in this encounter Progress Notes * Raul Hoyos MD - 02/04/2024 11:00 AM CDT Virtual Visit Details Type of service: Video Visit Originating Location (pt. Location): Home Distant Location (provider location): Off-site Platform used for Video Visit: AmAbran * Raul Hoyos MD - 02/04/2024 11:00 AM CDT [facility] [address]RD FLOOR [facility] [address] February 04, 2024 Alcon Zamora [address] [facility] [address] VIDEO VISIT and Documentation and coordination = 60 minutes Ms. Alcon Zamora is a 48 year old R handed lady with a complex medical history including Ehler Danlos, L signoid dural AVF. This lady had an angiogram on 01/09/24 and this was complicated by luis-procedural strokes involving bilateral hemisphere L > R and involving frontal and parietal lobes, L pre and post- central gyrus and L supra-marginal gyrus. 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 Her recovery was complicated by seizures. I am seeing her in stroke clinic today and she reports new symptoms since Saturday of worsening balance and coordination and L face and thighnumbness. All these appear to be new stroke related symptoms. Patient is advised to go to the ER - s he will come to [facility] and this note is for care coordination. Will be addended further later. ADDENDUM Placed mental health relay mechanic referral as well due to high PHQ-9. CTA 01/09/24 IMPRESSION: 1. No intracranial proximal large vessel occlusion, flow-limiting luminal stenosis, or cerebral aneurysm. 2. Enlarged left occipital and middle meningeal arteries consistent with the known left sigmoid dural arteriovenous fistula. 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 EXAM Orientation: Normal; Language normal; Attention: normal Cranial nerves: EOMI; L face droop; has altered sensation L face new since Saturday; shoulder shrug normal tongue ML Motor: FFM normal R; decreased L; No drift; Strength antigravity or better in both UE Sensory: no deficits to LT except L face L thigh and whole left side feel different Co-ordination normal R; L FN consistently touches cheek instead of nose and then corrects Gait: normal base cannot walk on toes; can walk on heels; heel toe unable Raul Hoyos MD documented in this encounter Nursing Notes * Corazon Healy - 02/04/2024 11:00 AM CDT Is the patient currently in the state of [place]? YES Visit mode:VIDEO If the visit is dropped, the patient can be reconnected by: VIDEO VISIT: Text to cell phone: Telephone Information: Will anyone else be joining the visit? NO (If patient encounters technical issues they should call [phone]) How would you like to obtain your AVS? MyChart Are changes needed to the allergy or medication list? No Are refills needed on medications prescribed by this physician? NO Reason for visit: Consult Corazon Healy VVF Depression Response Patient completed the PHQ-9 assessment for depression and scored >9? Yes Question 9 on the PHQ-9 was positive for suicidality? Yes Does patient have current mental health provider? No Is this a virtual visit? Yes Does patient have suicidal ideation (positive question 9)? No - offer to place Mental Health Referral. Referral order pended I personally notified the following: visit provider * Meche De La Cruz RN - 02/04/2024 11:00 AM CDT Spoke with Dr. Hoyos - sending patient to [facility] ED with new stoke symptoms ongoing since Saturday - difficulty walking, worsened coordination and balance. Enitre left side numbness/altered sensation on left. Patients friend will transport patient. Called ED customer security clerkMarii, and informed of above. Meche De La Cruz RN 02/04/2024 11:43 AM documented in this encounter Plan of Treatment Upcoming Encounters Date Type Department Care Team (Late st Contact Info) Description 02/26/2024 1:40 PM CDT Appointment [facility] Imaging [address] [place] [address] Denise Woodson Ra, HAT BODY SORTER RELIEF PHARMACIST [address] [facility] [place] [address] 02/26/2024 2:15 PM CDT Therapy Visit [address] [phone] Danya You, PA [address] [place], [place] 9[address] Charis Chacon, FLAKE CUTTER OPERATOR [facility] [address] [place] [address] 02/26/2024 3:00 PM CDT Therapy Visit [address] [phone] Danya You, PA [address] [place], [place] 6[address] Isabel Beaulieu, OTR [address] [address] 02/27/2024 4:45 PM CDT Therapy Visit [address] [phone] Danya You, PA 24[address] [facility] [address] [place], [place] 4609[address] Vanessa Duggan, PT 03/05/2024 1:30 PM CDT Therapy Visit [facility] 150 [place] [address] Danya You, PA [address] [place] [address] Isabel Beaulieu, OTR [facility] [address] [place] [address] 03/05/2024 3:15 PM CDT Therapy Visit [facility] 150 [place] [address] Danya You, PA [address] [address] Charis Chacon, [facility] [address] [place] [address] 03/05/2024 4:15 PM CDT Therapy Visit [address] [phone] Danya You, PA [address] [address] Delicia George, PT [facility] [address] [place] [address] 03/11/2024 2:15 PM CDT Therapy Visit [facility] [address] [place] [phone] Danya You, PA [address] [place] [address] Isabel Beaulieu, OTR [facility] 150 [place] [address] 03/11/2024 3:00 PM CDT Therapy Visit [facility] [address] [place] [address] Danya You, PA [address] [place] [address] Charis Chacon, JUAN [facility] [address] [place] [address] 03/11/2024 4:15 PM CDT Therapy Visit [address] [phone] Danya You, AMAIRANI [address] [facility] [address] [address] Delicia George, PT [facility] [address] 683675 03/17/2024 10:00 AM CDT Office Visit [facility] [address] [place] [address] Denise Woodson Ra, HAT BODY SORTER RELIEF PHARMACIST [address] [place], [place] 9[address]9968 03/17/2024 1:30 PM CDT Therapy Visit [address] [phone] [place] [address] 148834 Isabel Beaulieu, JAIMIE [address] [address] 03/17/2024 2:30 PM CDT Therapy Visit [address] [place] [address] Danya You PA [address] [place] [address] Charis Chacon SLP [facility] [address] [place] [address] 03/17/2024 4:00 PM CDT Therapy Visit [facility] [address] [place] [address] Danya You, AMAIRANI [address] [facility] J[address] S[address] [place] [address] Vanessa Duggan, PT 03/23/2024 10:30 AM CDT Office Visit [facility] [address] [place] [phone] Denise Woodson Ra, HAT BODY SORTER RELIEF PHARMACIST [address] [place], [place] [address] 03/26/2024 1:30 PM CDT Therapy Visit [facility] [address] [place] [address] Danya You, PA [address] [facility] J[facility] SOTO [address] [place] [address] Isabel Beaulieu, OTJah [facility] [address] [place] [address] 03/26/2024 2:30 PM CDT [facility] [address] [place] [address] Danya You PA [address] [place] [address] Charis Chacon, JUAN [facility] [address] [place], [place] [address] 03/26/2024 3:30 PM CDT Therapy Visit [facility] 150 [place] [address] Danya You, PA [address] [place] [address] Delicia George, PT [facility] [address] [address] 04/02/2024 2:15 PM CDT Therapy Visit [facility] 150 [place] [phone] Danya You, PA [address] [place] [address] Isabel Beaulieu, OTR [facility] 150 [place] [address] 04/02/2024 3:15 PM CDT Therapy Visit [facility] [address] [place] [address] Danya You, PA [address] [place], [place] 0670[address] Charis Chacon, JUAN [facility] [address] [place] [address] 04/02/2024 4:15 PM CDT Therapy Visit [facility] 150 [place] [address] Danya You, PA [address] CHARLES [address] [place] [address] Delicia George, PT [address] [address] 04/09/2024 3:15 PM CDT Therapy Visit [address] [address] Danya You, PA [address] [address] Charis Chacon SLP [place] [address] [place] [address] 04/09/2024 4:15 PM CDT Therapy Visit [address] [phone] Danya You, PA [address] [place] [address] Delicia George, PT [address] [address] 04/15/2024 9:30 AM CDT Therapy Visit [address] [phone] Danya You, PA [facility]0 [address] [address] Danya Restrepo SLP 04/23/2024 2:30 PM CDT [facility] 150 [facility] [place] [address] Danya You, PA [address] [place] [address] Charis Chacon, JUAN [facility] [address] [place] [address] 05/05/2024 2:30 PM CDT Office Visit [facility] [address], [address] [place] [phone] Rohit Barcenas MD [address] [place] [address] 295 [place] [address] 06/23/2024 11:00 AM CDT Virtual Visit [facility] [address] [place] [address] Kristin Vázquez, [facility] [address] [place] [address] 06/30/2024 2:00 PM CDT Virtual Visit M [facility] [address]01 [place] [address] Kristin Vázquez, [facility] [address] [place] [address] Scheduled Referrals Name Type Priority Associated Diagnoses Orde r Schedule Adult Mental Health Barrel Roller Operator Referral Referral Urgent: 3-5 Days History of seizure Cerebrovascular accident (CVA), unspecified mechanism (H) Depression, unspecified depression type Expected: 02/11/2024 (Approximate), Expires: 02/03/2025 documented as of this encounter Visit Diagnoses Diagnosis Depression, unspecified depression type- Primary Seizure-like activity (H) Other convulsions History of seizure Cerebrovascular accident (CVA), unspecified mechanism (H) documented in this encounter Additional Health Concerns Assessment Noted Time PHQ-9 Depression Total Score: 15 024 10:47 AM CDT documented as of this encounter Care Teams Utility Person Relationship Specialty Start Date End Date Winston Villatoro OD [facility] [place] [address] [place] [address] PCP - Ophthalmology Ophthalmology 02/11/13 Denise Woodson Ra, HAT BODY SORTER RELIEF PHARMACIST [address] [address] JUL[address]Abilio [facility] [place] [address] PCP - General Family Practice 09/21/20 Denise Woodson Ra, HAT BODY SORTER RELIEF PHARMACIST [address] [place] [address] Assigned PCP 07/17/20 Usha Simon APRN RELIEF PHARMACIST [address] 767875 Nurse Practitioner Neurological Surgery 01/24/24 Dangelo Salinas MD [address] [place] [address] Neurology 01/27/24 Usha iSmon APRN RELIEF PHARMACIST [address] 705465 Assigned Neuroscience Provider 02/06/24 Anastasia Stearns, RN Lead House Worker General 02/06/24 documented as of this encounter
--- OUTSIDE RECORDS SUMMARY | 2024-02-22 15:22 | XMS_ITS | Encounter Summary ---
Author Organization [facility] Address [address] [place] [address] Care Team Providers Care Spring Intern Name Role Phone ShaunaWinston OD Unavailable [phone] Denise Woodson Ra, APRN WOOL CLEANER Unavailable [phone] Denise Woodson Ra, APRN WOOL CLEANER Primary Care Provid er Usha Simon APRN WOOL CLEANER Unavailable [phone] Dangelo Salinas MD Unavailable Usha Simon APRN WOOL CLEANER Unavailable [phone] Anastasia Stearns RN Unavailable [phone] Encounter Details Date Type Department Care Team (Latest Contact Info) Description 02/06/2024 Travel Social History Tobacco Use Types Packs/Day [...] 1:40 PM CDT Appointment [facility] Imaging [address] [place] [phone] Denise Woodson Ra, MULTI TOWNSHIP ASSESSOR WOOL CLEANER [address] [facility] [address] 02/26/2024 2:15 PM CDT Therapy Visit [address] [phone] Danya You, AMAIRANI SOTO [address] [place] [address] Charis Chacon, JUAN [facility] [address] [place] [address] 02/26/2024 3:00 PM CDT Therapy Visit [address] [phone] Danya You, [place] 245Darren SOTO [address] [place] [address] Isabel Beaulieu OTR [address] [address] 02/27/2024 4:45 PM CDT Therapy Visit [address] [phone] Danya You, PA [address] [place] [address] Vanessa Duggan, PT 03/05/2024 1:30 PM CDT Therapy Visit [address] [phone] Danya You, PA [address] [address] Isabel Beaulieu, OTR [address] [address] 03/05/2024 3:15 PM CDT Therapy Visit [address] [phone] Danya You, PA [address] [address] Charis Chacon, THIRD STEEL POURER [facility] [address] [place] [address] 03/05/2024 4:15 PM CDT Therapy Visit [address] [phone] Danya You, PA [address] [address] Delicia George, PT [facility] 909 [place] [address] 03/11/2024 2:15 PM CDT Therapy Visit [address] [phone] Danya You, PA [address] 992094 Isabel Beaulieu, OTR [address] [address] 03/11/2024 3:00 PM CDT Therapy Visit [address] [phone] Danya You, PA [address] [address] Charis Chacon, THIRD STEEL POURER [facility] [address] [place] [address] 03/11/2024 4:15 PM CDT Therapy Visit [address] [phone] Danya You, PA [address] 582484 Delicia George, PT [facility] [address] [place] [address] 03/17/2024 10:00 AM CDT Office Visit [facility] [address] [place] [address] Denise Woodson Ra, MULTI TOWNSHIP ASSESSOR [facility] [address] [place], [place] 00[address] 03/17/2024 1:30 PM CDT Therapy Visit [address] [phone] [place] [address] [address] Isabel Beaulieu, OTR [facility] 150 [place] [address] 03/17/2024 2:30 PM CDT [facility] 150 [place] [address] Danya You, AMAIRANI [address] 2860[address] Charis Chacon, JUAN [facility] [address] [place] [address] 03/17/2024 4:00 PM CDT Therapy Visit [address] [phone] Danya You, PA 2450 [facility] [address] 66[address] Vanessa Duggan, PT 03/23/2024 10:30 AM CDT Office Visit [facility] [address] [place] [phone] Denise Woodson Ra, MULTI TOWNSHIP ASSESSOR WOOL CLEANER [address] [place], [place] [address] 03/26/2024 1:30 PM CDT [facility] 150 [place] [phone] Danya You, PA 2450 [facility] [address] [address] Isabel Beaulieu, OTR [facility] 150 [place] [address] 03/26/2024 2:30 PM CDT Therapy Visit [address] [phone] Danya You, AMAIRANI [facility] [address] [address] Charis Chacon SLP [facility] [address] [place] [address] 03/26/2024 3:30 PM CDT Therapy Visit [address] [phone] Danya You, PA [address] [place] [address] Delicia George, PT [facility] [address] [place] [address] 04/02/2024 2:15 PM CDT Therapy Visit [address] [phone] Danya You, PA [address] [place] [address] Isabel Beaulieu, OTR [address] [address] 04/02/2024 3:15 PM CDT Therapy Visit [address] [phone] Danya You PA [address] [place], [place] [address] [address] [address] Charis Chacon, JUAN [facility] [address] [place] [address] 04/02/2024 4:15 PM CDT Therapy Visit [address] [address] Danya You, AMAIRANI [address] [address] Delicia George, PT [address] 313795 04/09/2024 3:15 PM CDT Therapy Visit [address] [address] Danya You, AMAIRANI [address] [address] Charis Chacon, JUAN [facility] [address] [place] [address] 04/09/2024 4:15 PM CDT Therapy Visit [address] [address] Danya You, AMAIRANI [facility] [address] [address] Delicia George, PT [address] 586795 04/15/2024 9:30 AM CDT Therapy Visit [address] [phone] Danya You PA [address] [place] [address] Danya Restrepo SLP 04/23/2024 2:30 PM CDT Therapy Visit [facility] 150 [place] [address] Danya You PA [address] [place] [address] Charis Chacon, JUAN [facility] [address] [place] [address] 05/05/2024 2:30 PM CDT Office Visit [facility] [address], [address] [place] [phone] Rohit Barcenas MD [address] [place] [address] 295 [place] [address] 06/23/2024 11:00 AM CDT Virtual Visit [facility] 6401 [place] [phone] Kristin Vázquez, [facility] 7441 [place] [address] 06/30/2024 2:00 PM CDT Virtual Visit [facility] 6401 [place] [address] Kristin Vázquez, [facility] 6341 [place] [address] documented as of this encounter Visit Diagnoses Not on filedocumented in this encounter Additional Health Concerns Assessment Noted Time PHQ-9 Depression Total Score: 14 024 9:33 AM CDT documented as of this encounter Care Teams Spring Intern Relationship Specialty Start Date End Date Winston Villatoro OD [facility] [place] [address] [place] [address] PCP - Ophthalmology Ophthalmology 02/11/13 Denise Woodson Ra, APRN WOOL CLEANER [address] [place] [address] PCP - General Family Practice 09/21/20 Denise Woodson Ra, APRN WOOL CLEANER [address] [place] [address] Assigned PCP 07/17/20 Usha Simon APRN WOOL CLEANER [address] [place] [address] Nurse Practitioner Neurological Surgery 01/24/24 Dangelo Salinas MD [address] [facility] 200 [place] [address] Neurology 01/27/24 Usha Simon APRN WOOL CLEANER [address] [place] [address] Assigned Neuroscience Provider 02/06/24 Anastaisa Stearns, RN Lead Bi Architect 02/06/24 documented as of this encounter
--- OUTSIDE RECORDS SUMMARY | 2024-02-22 15:22 | XMS_ITS | Encounter Summary ---
Author Organization [facility] Address [address] [place] [address]. [place] [address] Care Team Providers Care Wire Rope Fabrication Supervisor Name Role Phone Winston Villatoro OD Unavailable [phone] Denise Woodson Ra, APRN DIETARY DIRECTOR Unavailable +- [phone] Denise Woodson Ra, APRN DIETARY DIRECTOR Primary Care Provid er Usha Simon APRN DIETARY DIRECTOR Unavailable +- [phone] Dangelo Salinas MD Unavailable Encounter Details Date Type Department Care Team (Late st Contact Info) Description 02/05/2024 [facility] Neurosurgery Clinic [address]rd [place] [address] Robin Zepeda MD [address] [place] [address] [id number] [place] [address] Social History Tobacco Use Types Packs/Day Years [...] encounter Miscellaneous Notes * Telephone Encounter - MelidaKendell morseine - 02/05/2024 1:42 PM CDT Called patient and scheduled appointment w/ Dr. Zepeda via task. -KB documented in this encounter Plan of Treatment Upcoming Encounters Date Type Department Care Team (Late st Contact Info) Description 02/26/2024 1:40 PM CDT Appointment [facility] [address] [place] [phone] Denise Woodson Ra, ASSEMBLER ENGINE DIETARY DIRECTOR [address] [place] [address] 02/26/2024 2:15 PM CDT Therapy Visit [address] [phone] Danya You, PA [address] [place], [place] [address] Charis Chacon, JUAN [facility] [address] [place] [address] 02/26/2024 3:00 PM CDT Therapy Visit [facility] [address] [place] [phone] Danya You, PA [address] [place], [place] [address] Isabel Beaulieu, OTR [facility] [address] [place] [address] 02/27/2024 4:45 PM CDT Therapy Visit [facility] [address] [place] [phone] Danya You, PA [address] [place], [place] [address] Vanessa Duggan, PT 03/05/2024 1:30 PM CDT Therapy Visit [address] [phone] Danya You, PA [address] 693784 Isabel Beaulieu, OTR [facility] [address] [place] [address] 03/05/2024 3:15 PM CDT Therapy Visit [address] [phone] Danya You, PA [address] 158224 Charis Chacon, TEACHER ASSOCIATE [facility] [address] [place] [address] 03/05/2024 4:15 PM CDT Therapy Visit [address] [phone] Danya You, PA [address] 767094 Delicia George, PT [address] [address] 03/11/2024 2:15 PM CDT Therapy Visit [address] [phone] Danya You, AMAIRANI [address] [address] Isabel Beaulieu, OTR [address] [address] 03/11/2024 3:00 PM CDT Therapy Visit [address] [phone] Danya You, AMAIRANI [facility] [address] [address] Charis Chacon, [facility] [address] [place] [address] 03/11/2024 4:15 PM CDT Therapy Visit [address] [phone] Danya You, AMAIRANI [address] [place], [place] [address]Analy [address] [address] Delicia George, PT [address] [address] 03/17/2024 10:00 AM CDT Office Visit [facility] [address] [place] [address] Denise Woodson Ra, ASSEMBLER ENGINE DIETARY DIRECTOR [address] [place] [address] 03/17/2024 1:30 PM CDT Therapy Visit [address] [phone] Danya You, PA Clarence [facility] JIE SOTO [address] [place] [address] Isabel Beaulieu, OTR [address] [address] 03/17/2024 2:30 PM CDT Therapy Visit [address] [address] Danya You, PA [address] [address] Charis Chacon, J[facility]AN [facility] [address] [place] [address] 03/17/2024 4:00 PM CDT Therapy Visit [address] [phone] Danya You, PA [address] [address] Vanessa Duggan, PT 03/23/2024 10:30 AM CDT Office Visit [facility] [address] [place] [phone] Denise Woodson Ra, ASSEMBLER ENGINE DIETARY DIRECTOR [address] [place] [address] 03/26/2024 1:30 PM CDT Therapy Visit [facility] [address] [place] [phone] Danya You, AMAIRANI [address] [address] Isabel Beaulieu, OTR [address] [address] 03/26/2024 2:30 PM CDT Therapy Visit [address] [phone] Danya You, AMAIRANI [facility] [address] [address] Charis Chacon, TEACHER ASSOCIATE [facility] [address] [place] [address] 03/26/2024 3:30 PM CDT Therapy Visit [address] [phone] Danya You, AMAIRANI [facility] [address] [address] Delicia George, PT [facility] [address] [address] 04/02/2024 2:15 PM CDT Therapy Visit [address] [phone] Danya You PA [facility] [address] [address] Isabel Beaulieu, OTR [facility] [address] [place] [address] 04/02/2024 3:15 PM CDT Therapy Visit [address] [phone] Danya You, AMAIRANI [address] [place] [address] Charis Chacon SLP [facility] [address] [place] [address] 04/02/2024 4:15 PM CDT Therapy Visit [address] [address] Danya You, AMAIRANI [address] [place] [address]88[address] Delicia George, PT [facility] [address] [place] [address] 04/09/2024 3:15 PM CDT Therapy Visit [address] [phone] Danya You, PA [address] [place] [address] Charis Chacon, [facility]AN [facility] [address] [place], [place] [address] 04/09/2024 4:15 PM CDT Therapy Visit [address] [address] Danya You, AMAIRANI [address] [place] [address] Delicia George, PT [facility] [address] [place] [address] 04/15/2024 9:30 AM CDT Therapy Visit [address] [phone] Danya You, PA 2450 [facility] [address] [place] [address] Danya Restrepo, TEACHER ASSOCIATE 04/23/2024 2:30 PM CDT Therapy Visit [address] [phone] Danya You, PA 2450 [facility] [address] [place] [address] Charis Chacon, [facility] [address] [place] [address] 05/05/2024 2:30 PM CDT Office Visit [facility] Epilepsy Care [address], [address] [place] [address] Rohit Barcenas MD 420 [facility] 295 [place] [address] 06/23/2024 11:00 AM CDT Virtual Visit [facility] [address] [place] [phone] Kristin Vázquez, [facility] 6341 [facility] [place] [phone] 06/30/2024 2:00 PM CDT Virtual Visit [facility] 6401 [facility] [place] [phone] Kristin Vázquez, [facility] 6341 [facility] PRIMO CORTEZ [phone] documented as of this encounter Visit Diagnoses Not on filedocumented in this encounter Additional Health Concerns Assessment Noted Time PHQ-9 Depression Total Score: 14 024 9:33 AM CDT documented as of this encounter Care Teams Wire Rope Fabrication Supervisor Relationship Specialty Start Date End Date Winston Villatoro, AM[facility]IE [facility] [place] [address] [place] [address] PCP - Ophthalmology Ophthalmology 02/11/13 Denise Woodson Ra, APRN DIETARY DIRECTOR [address] [facility] [place] [address] PCP - General Family Practice 09/21/20 Denise Woodson Ra, APRN DIETARY DIRECTOR [address] [facility] [place] [address] Assigned PCP 07/17/20 Usha Simon APRN DIETARY DIRECTOR 9 [facility] [id number] [place] [address] Nurse Practitioner Neurological Surgery 01/24/24 Dangelo Salinas MD [address] [place] [address] Neurology 01/27/24 documented as of this encounter
--- OUTSIDE RECORDS SUMMARY | 2024-02-22 15:22 | XMS_ITS | Encounter Summary ---
Author Organization [facility] [place] Address [address] [place] [address]. [place] [address] Care Team Providers Care Network Technical Analyst Name Role Phone ShaunaWinston OD Unavailable [phone] Denise Woodson Ra, APRN SUPERVISOR DOCK Unavailable [phone]- [phone] Denise Woodson Ra, APRN SUPERVISOR DOCK Primary Care Provid er Usha Simon APRN SUPERVISOR DOCK Unavailable [phone] Dangelo Salinas MD Unavailable Encounter Details Date Type Department Care Team (Latest Contact Info) Description 02/04/2024 Travel Social History Tobacco Use Types Packs/Day [...] Info) Description 02/26/2024 1:40 PM CDT Appointment [facility] [address] [facility] [address] [place] [address] Denise Woodson Ra, RAW JUICE WEIGHER SUPERVISOR DOCK [address] [place] [address] 02/26/2024 2:15 PM CDT Therapy Visit [facility] 150 [place] [phone] Danya You, PA [address] [place] [address] Charis Chacon, J[facility]AN [facility] [address] [place] [address] 02/26/2024 3:00 PM CDT Therapy Visit [address] [address] Danya You, PA [address] [address] Isabel Beaulieu, OTR [facility] [address] [address] 02/27/2024 4:45 PM CDT Therapy Visit [address] [phone] Danya You, PA [address] 206074 Vanessa Duggan, PT 03/05/2024 1:30 PM CDT Therapy Visit [address] [phone] Danya You, AMAIRANI [address] [place] [address] Isabel Beaulieu OTR [facility] 150 [place] [address] 03/05/2024 3:15 PM CDT Therapy [facility] [address] [place] [address] Danya You, AMAIRANI [address] [place] [address] Charis Chacon, MEAT STUFFER [facility] [address] [place] [address] 03/05/2024 4:15 PM CDT Therapy Visit [address] [address] Danya You, PA [address] [place] [address] Delicia George, PT [facility] [address] [place] [address] 03/11/2024 2:15 PM CDT Therapy Visit [address] [phone] Danya You, PA [address] [address] Isabel Beaulieu, JAIMIE [facility] [address] [place] [address] 03/11/2024 3:00 PM CDT [facility] [address] [place] [address] Danya You PA [address] [address] Charis Chacon, [facility] [address] [place] [address] 03/11/2024 4:15 PM CDT Therapy Visit [facility] [address] [place] [address] Danya You, AMAIRANI [address] [place] [address] Delicia George, PT [facility] [address] [place] [address] 03/17/2024 10:00 AM CDT Office Visit [facility] [address] [place] [address] Denise Woodson Ra, RAW JUICE WEIGHER SUPERVISOR DOCK [address] [place], [place] [address] 03/17/2024 1:30 PM CDT Therapy Visit [address] [phone] Danya You, AMAIRANI [address] [address] Isabel Beaulieu, OTJah [address] [address] 03/17/2024 2:30 PM CDT Therapy Visit [address] [phone] Danya You PA [address] [place] [address] Charis Chacon SLP [facility] [address] [place], [place] [address] 03/17/2024 4:00 PM CDT Therapy Visit [facility] [address] [place] [phone] Danya You, PA [address] [place] [address] Vanessa Duggan, PT 03/23/2024 10:30 AM CDT Office Visit [facility] [address] [place] [phone] Denise Woodson Ra, RAW JUICE WEIGHER SUPERVISOR DOCK [address] [place], [place] [address] 03/26/2024 1:30 PM CDT Therapy Visit [facility] [address] [place] [phone] Danya You, PA 2450 [facility] [address] [address] Isabel Beaulieu, OTR [facility] [address] [place] [address] 03/26/2024 2:30 PM CDT Therapy Visit [facility] [address] [place] [phone] Danya You, PA [address]50 [facility] [address] [place] [address] Charis Chacon, JUAN [facility] [address] [place], [place] [address] 03/26/2024 3:30 PM CDT Therapy Visit [address] [phone] Danya You PA [address] [place] [address] Delicia George, PT [facility] [address] [address] 04/02/2024 2:15 PM CDT Therapy Visit [address] [phone] Danya You PA [address] [place] [address] Isabel Beaulieu, OTJah [address] [address] 04/02/2024 3:15 PM CDT Therapy Visit [address] [phone] Danya You, PA [address] [place] [address] Charis Chacon, JUAN [facility] [address] [place] [address] 04/02/2024 4:15 PM CDT Therapy Visit [address] [phone] Danya You, AMAIRANI [address] [place] [address] Delicia George, PT [address] [address] 04/09/2024 3:15 PM CDT Therapy Visit [address] [phone] Danya You, PA [address] [place] [address] Charis Chacon, [facility] [place] [address] 04/09/2024 4:15 PM CDT Therapy Visit [address] [phone] Danya You, PA [address] [place] [address] [place] [address] Delicia George, PT [address] [address] 04/15/2024 9:30 AM CDT Therapy Visit [address] [phone] Danya You PA [address] MB [address] [place] [address] Danya Restrepo, MEAT STUFFER 04/23/2024 2:30 PM CDT Therapy Visit [address] [phone] Danya You, PA [address] [place] [address] Charis Chacon, JUAN [facility] [address] [place] [address] 05/05/2024 2:30 PM CDT Office Visit [facility] [address], [address] [place] [phone] Rohit Barcenas MD [address] [place] [address] 295 [place] [address] 06/23/2024 11:00 AM CDT Virtual Visit [facility] Mental [facility] & Addiction [facility] [address] [place] [address] Kristin Vázquez, [facility] [address] [place] [address] 06/30/2024 2:00 PM CDT Virtual Visit [facility] [address] [place] [address] Kristin Vázquez, [facility] [address] [place] [address] documented as of this encounter Visit Diagnoses Not on filedocumented in this encounter Additional Health Concerns Assessment Noted Time PHQ-9 Depression Total Score: 15 024 10:47 AM CDT documented as of this encounter Care Teams Network Technical Analyst Relationship Specialty Start Date End Date Winston Villatoro OD [facility] [place] [address] [facility] [address] [place] [address] PCP - Ophthalmology Ophthalmology 02/11/13 Denise Woodson Ra, RAW JUICE WEIGHER SUPERVISOR DOCK [address] [place] [address] PCP - General Family Practice 09/21/20 Denise Woodson Ra, APRN SUPERVISOR DOCK [address] [place] [address] Assigned PCP 07/17/20 Usha Simon APRN SUPERVISOR DOCK 9 [facility], [place] [address] Nurse Practitioner Neurological Surgery 01/24/24 Dangelo Salinas MD [address] [place] [address] Neurology 01/27/24 documented as of this encounter
--- OUTSIDE RECORDS SUMMARY | 2024-02-22 15:22 | XMS_ITS | Encounter Summary ---
Author Organization [facility] Address [address] [place] [address] Care Team Providers Care Community Reinvestment Act Officer Name Role Phone Winston Villatoro OD Unavailable +[phone] Denise Woodson Ra, APRN BILING[employer] MIDDLE SCHOOL TEACHER Unavailable + [phone] Denise Woodson Ra, APRN [employer]ING[employer] MID[employer] SCHO[employer] TEACHER Primary Care Provid er Usha Simon APRN [employer] MID[employer] SCHOOL TEACHER Unavailable + [phone] Dangelo Salinas MD Unavailable Reason for Visit * Reason Onset Date Comments *-*INCOMING RECORDS*-* 02/04/2024 Encounter Details Date Type Department Care Team (Late st Contact Info) Description 02/04/2024 PRE VISIT [facility] [address] [place] [address] Raul Hoyos MD [address] [place], [place] [id number] [address] *-*INCOMING RECORDS*-* Social History Tobacco Use Types [...] encounter Miscellaneous Notes * Telephone Encounter - Courtney Call - 01/28/2024 10:27 AM CDT Action 01/28/24 MV 10.47am Action Taken 1) Imaging request emailed to [place] 2) Request faxed to [facility] for [facility] records and imaging reports. Images already in PACS Action 01/30/24 MV 10.10am Action Taken Recs received from [facility] and sent to scanning ; still need [place] images Action 01/31/24 MV 8am Action Taken Images resolved in PACS RECORDS RECEIVED FROM: internal REASON FOR VISIT: Cerebrovascular accident (CVA) PROVIDER: Dr. Hoyos DATE OF APPT: 02/04/24 NOTES (FOR ALL VISITS) STATUS DETAILS OFFICE NOTE from referring provider Internal SEE INPATIENT NOTES OFFICE NOTE from other specialist Care Everywhere Dr Bette Mantilla @ [facility] Neurosurgery: 01/15/24 01/14/24 Dr Roshni Molina @ [facility] Neurosurgery: 01/14/24 DISCHARGE SUMMARY from hospital Internal/Received [facility]: 01/22/24-01/26/24 01/19/24-01/22/24 [facility]: 01/04/24-01/14/24 [place]: 09/30/22-10/02/22 DISCHARGE REPORT from the ER Care Everywhere [place]: 09/28/22 09/27/22 09/25/22 MEDICATION LIST Internal IMAGING (FOR ALL VISITS) ULTRASOUND (CAROTID BILAT) *VASCULAR* PACS [facility]: IR Angio Carotid 01/09/24 MRI (HEAD, NECK, SPINE) PACS [facility]: MRA Neck Carotid 01/20/24 MRI Brain 01/20/24 MRA Brain COW 01/20/24 [facility]: MRI Brain 01/13/24 [facility]: MRI Brain 09/28/22 MRI Brain 06/30/14 CT (HEAD, NECK, SPINE) PACS [facility]: CT Head 01/19/24 [facility]: CT Head 01/14/24 CTA Neck 01/13/24 CT Head 01/07/24 CTA Neck 01/04/24 CT Head 01/04/24 [facility]: CTA Head Neck Carotid 01/09/24 [facility]: CTA Head Neck 09/27/22 CT Head 09/25/22 CT Head 06/29/14 documented in this encounter Plan of Treatment Upcoming Encounters Date Type Department Care Team (Late st Contact Info) Description 02/26/2024 1:40 PM CDT Appointment [facility] [address] [place] [phone] Denise Woodson Ra, ROSE GRADING SUPERVISOR BILINGUAL MIDDLE SCHOOL TEACHER [address] [place] [address] 02/26/2024 2:15 PM CDT Therapy Visit [address] [phone] Danya You, PA 2450 [facility] JIE SOTO [address] [place] [address] 253274 Charis Chacon, JUAN [facility] [address] [place] [address] 02/26/2024 3:00 PM CDT Therapy Visit [address] [phone] Danya You, PA [address] [place] [address] [address] Isabel Beaulieu, JAIMIE [address] [address] 02/27/2024 4:45 PM CDT Therapy Visit [address] [phone] Danya You, PA [address] [place] [address] SOTO [address] [place] [address] 211274 Vanessa Duggan PT 03/05/2024 1:30 PM CDT Therapy Visit [address] [phone] Danya You, PA [address] [address] Isabel Beaulieu, OTR [address] [address] 03/05/2024 3:15 PM CDT Therapy Visit [address] [phone] Danya You, PA [facility] [address] [address] Charis Chacon, [employer] [facility] [address] [place] [address] 03/05/2024 4:15 PM CDT Therapy Visit [address] [phone] Danya You, PA [facility] [address] [address] Delicia George, PT [facility] [address] [place] [address] 03/11/2024 2:15 PM CDT Therapy Visit [address] [phone] Danya You, PA [address] 943924 Isabel Beaulieu, OTR [address] [address] 03/11/2024 3:00 PM CDT Therapy Visit [address] [phone] Danya You, PA [address] 435[address] Charis Chacon, J[facility]AN [facility] [address] [place] [address] 03/11/2024 4:15 PM CDT Therapy Visit [address] [phone] Danya You, PA [address] 466064 Delicia George, PT [facility] [address] [place] [address] 3739[address] 03/17/2024 10:00 AM CDT Office Visit [facility] [address] [place] [address] Denise Woodson Ra, ROSE GRADING SUPERVISOR [facility] [address] [place], [place] 26[address] 03/17/2024 1:30 PM CDT Therapy Visit [address] [phone] Danya You, PA [address] 467784 Isabel Beaulieu, OTR [facility] [address] [place] [address] 03/17/2024 2:30 PM CDT Therapy Visit [facility] [address] [place] [phone] Danya You, AMAIRANI [address] [address] Charis Chacon, J[facility]AN [facility] [address] [place] [address] 03/17/2024 4:00 PM CDT Therapy Visit [address] [phone] Danya You, PA [address] [address] Vanessa Duggan, PT 03/23/2024 10:30 AM CDT Office Visit [facility] [address] [place] [phone] Denise Woodson Ra, ROSE GRADING SUPERVISOR B[employer] TEACHER [address] [place], [place] [address] 03/26/2024 1:30 PM CDT [facility] [address] [place] [phone] Danya You, PA [address] [address] Isabel Beaulieu, OTR [facility] 150 [place] [address] 03/26/2024 2:30 PM CDT Therapy Visit [facility] 150 [place] [phone] Danya You, AMAIRANI 2450 [facility] [address] [address] Charis Chacon, J[facility]AN [facility] [address] [place] [address] 03/26/2024 3:30 PM CDT Therapy Visit [address] [phone] Danya You, PA 2450 [facility] [address] [address] Delicia George, PT [facility] [address] [address] 04/02/2024 2:15 PM CDT Therapy Visit [address] [phone] Danya You, PA [address] [place] [address] Isabel Beaulieu, OTR [address] [address] 04/02/2024 3:15 PM CDT Therapy Visit [address] [phone] Danya You PA [address] [place] [address] Charis Chacon, J[facility]AN [facility] [address] [place] [address] 04/02/2024 4:15 PM CDT Therapy Visit [address] [address] Danya You PA [address] [place] [address] [address] Delicia George, PT [address] 815915 04/09/2024 3:15 PM CDT Therapy Visit [address] [address] Danya You, PA [address] [place] [address] [address] Charis Chacon, J[facility]AN [facility] [address] [place] [address] 04/09/2024 4:15 PM CDT Therapy Visit [address] [address] Danya You PA [address] [place] [address] [address] Delicia George, PT [address] 829165 04/15/2024 9:30 AM CDT Therapy Visit [address] [phone] Danya You PA [address] [place] [address] [place] [address] Danya Restrepo [employer] 04/23/2024 2:30 PM CDT Therapy Visit [facility] Rehabilitation Services [facility] 150 [place] [address] Danya You PA [address] [place] [address] [place] [address] Charis Chacon, [facility] [address] [place] [address] 05/05/2024 2:30 PM CDT Office Visit [facility] Epilepsy Care [address] [place], [address] [place] [address] Rohit Barcenas MD 420 [facility] 295 [place] [address] 06/23/2024 11:00 AM CDT Virtual Visit [facility] Mental Health & Addiction [facility] 6401 [place] [address] Kristin Vázquez, [facility] 8671 [place] [address] 06/30/2024 2:00 PM CDT Virtual Visit [facility] Mental [facility] & Addiction [facility] [address] [place] [address] Kristin Vázquez, [facility] [address] [place] [address] documented as of this encounter Visit Diagnoses Not on filedocumented in this encounter Additional Health Concerns Assessment Noted Time PHQ-9 Depression Total Score: 15 05/21/2 024 10:47 AM CDT documented as of this encounter Care Teams Community Reinvestment Act Officer Relationship Specialty Start Date End Date Winston Villatoro OD [facility] [place] [address] [place] [address] PCP - Ophthalmology Ophthalmology 02/11/13 Denise Woodson Ra, APRN BILING[employer]LE S[employer] TEACHER [address] [address] [address] PCP - General Family Practice 09/21/20 Denise Woodson Ra, APRN [employer] S[employer] TEACHER [address] [place] [address] Assigned PCP 07/17/20 Usha Simon APRN [employer] TEACHER [address] [place] [address] [address] Nurse Practitioner Neurological Surgery 01/24/24 Dangelo Salinas MD [address] [place] [address] Neurology 01/27/24 documented as of this encounter
--- OUTSIDE RECORDS SUMMARY | 2024-02-22 15:22 | XMS_ITS | Encounter Summary ---
Author Organization [facility] Address [address] [place] [address]. [place] [address] Care Team Providers Care Sales Development Executive Name Role Phone Winston Villatoro OD Unavailable [phone] Denise Woodson Ra, APRN INSTRUMENT PERSON Unavailable + [phone] Denise Woodson Ra, APRN INSTRUMENT PERSON Primary Care Provid er Uhsa Simon APRN INSTRUMENT PERSON Unavailable + [phone] Dangelo Salinas MD Unavailable Usha Simon APRN INSTRUMENT PERSON Unavailable + [phone] Anastasia Stearns RN Unavailable [phone] Encounter Details Date Type Department Care Team (Late st Contact Info) Description 02/06/2024 [facility] Medical Advice [facility] [address] [place] [address] Denise Woodson Ra, APRN INSTRUMENT PERSON [address] [place] [address] H/O prolonged Q-T interval on ECG (Primary Dx) Social History Tobacco Use Types [...] encounter Miscellaneous Notes * Telephone Encounter - Qing Copeland - 02/07/2024 8:44 AM CDT Scheduled. Qing Copeland Lead Electrician [facility] [place] [facility] * Telephone Encounter - Leslie Mcclellan RN - 02/06/2024 12:51 PM CDT Please see [facility] and advise. Leslie Mcclellan RN, BSN [facility] documented in this encounter Plan of Treatment Upcoming Encounters Date Type Department Care Team (Late st Contact Info) Description 02/26/2024 1:40 PM CDT Appointment [facility] [place] [facility] [address] [facility] [address] [place] [phone] Denise Woodson Ra, RADIOLOGY ADMINISTRATOR INSTRUMENT PERSON [address] [place] [address] 02/26/2024 2:15 PM CDT Therapy Visit [facility] Rehabilitation Services [address] [phone] Danya You, PA 4610 [facility] 213 [place] [address] Charis Chacon, CANARY BREEDER [facility] [address] [place] [address] 02/26/2024 3:00 PM CDT Therapy Visit [facility] 150 [place] [phone] Danya You, PA [address] [place] [address] Isabel Beaulieu, OTR [facility] 150 [place] [address] 02/27/2024 4:45 PM CDT Therapy Visit [facility] 150 [place] [address] Danya You, PA [address] 531804 Vanessa Duggan, PT 03/05/2024 1:30 PM CDT Therapy Visit [address] [phone] Danya You, PA [address] [place] [address] Isabel Beaulieu, OTR [facility] 150 [place] [address] 03/05/2024 3:15 PM CDT Therapy Visit [address] [phone] Danya You, PA [address] [place], [place] [address] Charis Chacon, JUAN [facility] [address] [place] [address] 03/05/2024 4:15 PM CDT Therapy Visit [facility] 150 [place] [address] Danya You PA [address] [place] [address] Delicia eGorge, PT [facility] [address] [address] 03/11/2024 2:15 PM CDT Therapy Visit [address] [phone] Danya You, AMAIRANI [address] [place] [address] Isabel Beaulieu, JAIMIE [address] [address] 03/11/2024 3:00 PM CDT Therapy Visit [address] [phone] Danya You, PA [address] [address] [facility] [address] [place] [address] Charis Chacon, JUAN [facility] [address] [place] [address] 03/11/2024 4:15 PM CDT Therapy Visit [address] [address] Danya You, PA [address] [place] [address] Delicia George, PT [facility] [address] [place] [address] 03/17/2024 10:00 AM CDT Office Visit [facility] [address] [place] [phone] Denise Woodson Ra, RADIOLOGY ADMINISTRATOR INSTRUMENT PERSON [address] [place], [place] 623[address] 03/17/2024 1:30 PM CDT Therapy Visit [address] [phone] Danya You, AMAIRANI Muller0 [place] CERON [address] [address] Isabel Beaulieu, OTR [address] [address] 03/17/2024 2:30 PM CDT Therapy Visit [address] [phone] Danya You, PA [address] [place] [address] Charis Chacon, JUAN [facility] [address] [place] [address] 03/17/2024 4:00 PM CDT Therapy Visit [address] [phone] Danya You, PA [address] [address] Vanessa Duggan, PT 03/23/2024 10:30 AM CDT Office Visit [facility] [address] [place] [phone] Denise Woodson Ra, RADIOLOGY ADMINISTRATOR INSTRUMENT PERSON [address] [place], [place] 34[address] 03/26/2024 1:30 PM CDT Therapy Visit [address] [phone] Danya You, AMAIRANI [facility] [address] [address] Isabel Beaulieu OTR [address] [address] 03/26/2024 2:30 PM CDT Therapy Visit [address] [phone] Danya You, PA [facility] [address] [address] Charis Chacon, JUAN [facility] [address] [place] [address] 03/26/2024 3:30 PM CDT Therapy Visit [address] [phone] Danya You, PA [address] [address] Delicia George, PT [facility] [address] [address] 04/02/2024 2:15 PM CDT Therapy Visit [address] [phone] Danya You, PA [address] [place] [address] Isabel Beaulieu, OTR [address] [address] 04/02/2024 3:15 PM CDT Therapy Visit [address] [phone] Danya You, PA [address] [place] [address] Charis Chacon, [facility] [address] [place] [address] 04/02/2024 4:15 PM CDT Therapy Visit [address] [phone] Danya You, PA 2450 [facility] [address] [place] [address] Delicia George, PT [facility] 909 [place] [address] 04/09/2024 3:15 PM CDT Therapy Visit [address] [phone] Danya You, PA [address] [address] Charis Chacon, J[facility]AN [facility] [address] [place] [address] 04/09/2024 4:15 PM CDT Therapy Visit [address] [address] Danya You, PA [address] [address] Delicia George, PT [address] [address] 04/15/2024 9:30 AM CDT Therapy Visit [address] [address] Danya You, PA 2450 [facility] [address] [address] Danya Restrepo SLP 04/23/2024 2:30 PM CDT Therapy Visit [address] [phone] Danya You, PA [address] [place] [address] [place] [address] Charis Chacon, JUAN [facility] [address] [place] [address] 05/05/2024 2:30 PM CDT Office Visit [facility] Epilepsy Care [address] [place] [place], [address] [place] [address] Rohit Barcenas MD 420 [facility] 295 [place] [address] 06/23/2024 11:00 AM CDT Virtual Visit [facility] Mental [facility] & [facility] [address] [facility] [place] [address] Kristin Vázquez, [facility] 0125 [facility] [place] [address] 06/30/2024 2:00 PM CDT Virtual Visit [facility] [address] [facility] [place] [phone] Kristin Vázquez, [facility] 6341 [facility] [place] [address] documented as of this encounter Visit Diagnoses Diagnosis H/O prolonged Q-T interval on ECG- Primary Personal history of other diseases of circulatory system documented in this encounter Additional Health Concerns Assessment Noted Time PHQ-9 Depression Total Score: 14 024 9:33 AM CDT documented as of this encounter Care Teams Sales Development Executive Relationship Specialty Start Date End Date Winston Villatoro, AMELIE [facility] [place] [address] [place] [address] PCP - Ophthalmology Ophthalmology 02/11/13 Denise Woodson Ra, APRN INSTRUMENT PERSON [address] [address] [address] PCP - General Family Practice 09/21/20 Denise Woodson Ra, APRN INSTRUMENT PERSON [address] [place] [address] Assigned PCP 07/17/20 Usha Simon APRN INSTRUMENT PERSON 909 [facility]2121[address] [place] [address] Nurse Practitioner Neurological Surgery 01/24/24 Dangelo Salinas MD [address] [place] [address] Neurology 01/27/24 Usha Simon APRN INSTRUMENT PERSON 909 [facility]2121[place] [address] Assigned Neuroscience Provider 02/06/24 Anastasia Stearns, RN Lead Transaction Coordinator 02/06/24 documented as of this encounter
--- OUTSIDE RECORDS SUMMARY | 2024-02-22 15:23 | XMS_ITS | Encounter Summary ---
Author Organization [place] Address [address] [place] [address]. [place] [address] Care Team Providers Care Mottle Lay Up Operator Name Role Phone Winston Villatoro Se OD Unavailable [phone] Denise Woodson Ra, APRN HOSPITALITY DIRECTOR Unavailable +- [phone] Denise Woodson Ra, APRN HOSPITALITY DIRECTOR Primary Care Provid er Usha Simon APRN HOSPITALITY DIRECTOR Unavailable + [phone] Dangelo Salinas MD Unavailable Encounter Details Date [...] Info) Description 02/26/2024 1:40 PM CDT Appointment [facility] [address] [facility] [address] [place] [address] Denise Woodson Ra COMPOSITION SIDING WORKER HOSPITALITY DIRECTOR [address] [place] [address] 02/26/2024 2:15 PM CDT Therapy Visit [facility] 150 [place] [address] Danya You, PA [address] [place] [address] Charis Chacon, JUAN [facility] [address] [place] [address] 02/26/2024 3:00 PM CDT Therapy Visit [address] [phone] Danya You, AMAIRANI [address] [place], [place] [address] Isabel Beaulieu OTR FV [address] [address] 02/27/2024 4:45 PM CDT Therapy Visit [address] [phone] Danya You, PA 2450 [facility] 213 [place], [place] 4465[address] Vanessa Duggan, PT 03/05/2024 1:30 PM CDT Therapy Visit [address] [phone] Danya You, AMAIRANI [address] [place] [address] Isabel Beaulieu OTR [address] [address] 03/05/2024 3:15 PM CDT Therapy Visit [address] [phone] Danya You, AMAIRANI 2450 [facility] [address] [address] Charis Chacon SLP [facility] [address] [place] [address] 03/05/2024 4:15 PM CDT Therapy Visit [address] [phone] Danya You, PA 2450 [facility] [address] [address] Delicia George, PT [facility] [address] [place] [address] 03/11/2024 2:15 PM CDT Therapy Visit [address] [phone] Danya You, PA 2450 [facility] [address] [address] Isabel Beaulieu OTR [address] [address] 03/11/2024 3:00 PM CDT Therapy Visit [address] [phone] Danya You PA 2450 [facility] [address] [address] Charis Chacon, JUAN [facility] [address] [place] [address] 03/11/2024 4:15 PM CDT Therapy Visit [address] [phone] Danya You, PA [address] [address] Delicia George, PT [facility] [address] [address] 03/17/2024 10:00 AM CDT Office Visit [facility] [address] [place] [phone] Denise Woodson Ra, COMPOSITION SIDING WORKER HOSPITALITY DIRECTOR [address] [place], [place] [address] 03/17/2024 1:30 PM CDT Therapy Visit [address] [phone] Danya You, PA [facility] [address] [address] Isabel Beaulieu, OTR [address] [address] 03/17/2024 2:30 PM CDT Therapy Visit [address] 88267-[address] Danya You, PA 7330 [facility] [address] [address] Charis Chacon, JUAN [facility] [address] [place] [address] 03/17/2024 4:00 PM CDT Therapy Visit [facility] 150 [place] [address] Danya You, PA [address] [place], [place] 110334 Vanessa Duggan, PT 03/23/2024 10:30 AM CDT Office Visit [facility] [address] [place] [address] Denise Woodson Ra, COMPOSITION SIDING WORKER HOSPITALITY DIRECTOR [address] [place], [place] 8[address]57[address] 03/26/2024 1:30 PM CDT Therapy Visit [facility] 150 [place] [address] Danya You, PA [address] [place], [place] 24[address]74 Isabel Beaulieu, OTR [facility] 150 [place] [address] 03/26/2024 2:30 PM CDT Therapy Visit [facility] 150 [place] [address] Danya You, PA [address] [place] [address] Charis Chacon, JUAN [facility] [address] [place] [address] 03/26/2024 3:30 PM CDT Therapy Visit [facility] 150 [place] [address] Danya You, AMAIRANI [address] [address] Delicia George, PT [address] [address] 04/02/2024 2:15 PM CDT Therapy Visit [address] [phone] Danya You, AMAIRANI [address] [address] Isabel Beaulieu, OTJah [address] [address] 04/02/2024 3:15 PM CDT Therapy Visit [address] [phone] Danya You, PA [facility] [address] [address] Charis Chacon, JUAN [facility] [address] [place] [address] 04/02/2024 4:15 PM CDT Therapy Visit [address] [phone] Danya You, PA [address] [address] Delicia George, PT [place] [address] [place] [address] 04/09/2024 3:15 PM CDT Therapy Visit [address] [address] Danya You, PA [address] [place] [address] Charis Chacon, ONLINE MERCHANT [facility] [address] [place] [address] 04/09/2024 4:15 PM CDT Therapy Visit [address] [address] Danya You, PA [address] [place] [address] Delicia George, PT [facility] [address] [place] [address] 04/15/2024 9:30 AM CDT Therapy Visit [address] [address] Danya You, PA [address] [address] Danya Restrepo, ONLINE MERCHANT 04/23/2024 2:30 PM CDT Therapy Visit [address] [address] Danya You, PA [address] [place] [address] Charis Chacon, JUAN [facility] [address] [place] [address] 05/05/2024 2:30 PM CDT Office Visit [facility] Ep[facility] Care [address], [address] [place] [address] Rohit Barcenas MD [address] [place] [address] 295 [place], [place] 85[address]35 06/23/2024 11:00 AM CDT Virtual Visit [facility] Mental Health & Addiction [facility] 6401 [place] [address] Kristin Vázquez, [facility] [address] [place] [address] 06/30/2024 2:00 PM CDT Virtual Visit [facility] Mental Health & Addiction [facility] 6401 [place] [address] Kristin Vázquez, [facility] [address] [place] [address] documented as of this encounter Visit Diagnoses Not on filedocumented in this encounter Additional Health Concerns Assessment Noted Time PHQ-9 Depression Total Score: 0 06/23/20 21 4:11 PM CDT documented as of this encounter Care Teams Mottle Lay Up Operator Relationship Specialty Start Date End Date Winston Villatoro OD [facility] [place] [address] [facility] [address] [place] [id number] PCP - Ophthalmology Ophthalmology 02/11/13 Denise Woodson Ra, COMPOSITION SIDING WORKER HOSPITALITY DIRECTOR [address] [address] [id number] PCP - General Family Practice 09/21/20 Denise Woodson Ra, APRN HOSPITALITY DIRECTOR [address] [facility] [place] [address] Assigned PCP 07/17/20 Usha Simon APRN HOSPITALITY DIRECTOR 909 [facility], [place] [address] Nurse Practitioner Neurological Surgery 01/24/24 Dangelo Salinas MD [address] [address] [facility] 200 [place], [place] [id number] Neurology 01/27/24 documented as of this encounter
--- OUTSIDE RECORDS SUMMARY | 2024-02-22 15:23 | XMS_ITS | Encounter Summary ---
Author Organization [place] Address [address] [place] [address] Care Team Providers Care Auto Crane Driver Name Role Phone Winston Villatoro OD Unavailable [phone] Denise Woodson Ra, APRN RETINA SUBSPECIALIST Unavailable + [phone] Denise Woodson Ra, APRN RETINA SUBSPECIALIST Primary Care Provid er Usha Simon APRN RETINA SUBSPECIALIST Unavailable +- [phone] Dangelo Salinas MD Unavailable Encounter Details Date Type Department Care Team (Late st Contact Info) Description 01/30/2024 MyC Medical Advice [facility] [address] [address] Stacey Kelley, RN Social History [...] Info) Description 02/26/2024 1:40 PM CDT Appointment [facility] [address] [facility] [place] [address] Denise Woodson Ra, MEDIA SUPERVISOR RETINA SUBSPECIALIST [address] [facility] [place] [address] 02/26/2024 2:15 PM CDT Therapy Visit [facility] 150 [place] [address] Danya You, PA [address] [address] Charis Chacon, [facility] [address] [place] [address] 02/26/2024 3:00 PM CDT Therapy Visit [address] [phone] Danya You, PA [address] [address] Isabel Beaulieu, OTR [address] [address] 02/27/2024 4:45 PM CDT Therapy Visit [address] [phone] Danya You, PA [facility] [address] [address] Vanessa Duggan, PT 03/05/2024 1:30 PM CDT Therapy Visit [address] [address] Danya You, PA [address] 141804 Isabel Beaulieu, OTR [facility] 150 [facility] [address] 03/05/2024 3:15 PM CDT Therapy Visit [facility] 150 [facility] [place] [address] Danya You, AMAIRANI [address] [address] Charis Chacon, JUAN [facility] [address] [place] [address] 03/05/2024 4:15 PM CDT Therapy [facility] 150 [place] [address] Danya You, PA [address] [address] Delicia George, PT [facility] [address] [place] [address] 03/11/2024 2:15 PM CDT Therapy Visit [facility] 150 [place] [address] Danya You, PA [address] [place] [address] Isabel Beaulieu, OTR [facility] 150 [place] [address] 03/11/2024 3:00 PM CDT Therapy Visit [facility] 150 [place] [address] Danya You, PA [address] [address] Charis Chacon SLP [facility] [address] [place] [address] 03/11/2024 4:15 PM CDT Therapy Visit [facility] 150 [place] [address] Danya [place], PA [address] 738784 Delicia George, PT [facility] SURGERY [address] [address] 03/17/2024 10:00 AM CDT Office Visit [facility] [address] [place] [address] Denise Woodson Ra, MEDIA SUPERVISOR RETINA SUBSPECIALIST [address] [place] [address] 03/17/2024 1:30 PM CDT Therapy Visit [address] 58[address] Danya You, PA [address] [address] Isabel Beaulieu OTR [address] [address] 03/17/2024 2:30 PM CDT Therapy Visit [facility] 150 [place] [address] Danya You PA [address] [place] [address] Charis Chacon SLP [facility] [address] [place] [address] 03/17/2024 4:00 PM CDT Therapy Visit [address] [phone] Danya You, AMAIRANI [address] [address] Vanessa Duggan, PT 03/23/2024 10:30 AM CDT Office Visit [facility] [address] [place] [address] Denise Woodson Ra, MEDIA SUPERVISOR [facility] [address] [place] [address] 03/26/2024 1:30 PM CDT Therapy Visit [address] [phone] [place] [address] [place] [address] Isabel Beaulieu, OTR [address] [address] 03/26/2024 2:30 PM CDT Therapy Visit [address] [phone] Danya You, AMAIRANI [address] [address] Charis Chacon, JUAN [facility] [address] [place] [address] 03/26/2024 3:30 PM CDT Therapy Visit [facility] 150 [place] [address] Danya You PA [address] [place] [address] Delicia George, PT [facility] SURGERY [address] [address] 04/02/2024 2:15 PM CDT Therapy Visit [address] [phone] Danya You, AMAIRANI Muller0 [address] [place] [address] Isabel Beaulieu, OTJah [address] [address] 04/02/2024 3:15 PM CDT Therapy Visit [address] [address] Danya You, PA [address] [place] [address] Charis Chacon, JUAN [facility] [address] [place] [address] 04/02/2024 4:15 PM CDT Therapy Visit [address] [address] Danya You, PA [address] [place] [address] Delicia George, PT [address] [address] 04/09/2024 3:15 PM CDT Therapy Visit [address] [address] Danya You, PA [address] [address] Charis Chacon, JUAN [facility] [address] [place] [address] 04/09/2024 4:15 PM CDT Therapy Visit [address] [address] Danya You, PA [address] [address] Delicia George, PT [address] [address] 04/15/2024 9:30 AM CDT Therapy Visit [address] [address] Danya You, PA [address] [address] Danya Restrepo, JUAN 04/23/2024 2:30 PM CDT Therapy Visit [address] [phone] Danya You, AMAIRANI 9210 [facility] 213 [place] [address] Charis Chacon, JUAN [facility] [address] [place] [address] 05/05/2024 2:30 PM CDT Office Visit [facility] Epilepsy Care [address], [address] [place] [address] Rohit Barcenas MD 420 [facility] 295 [place], [place] [address] 06/23/2024 11:00 AM CDT Virtual Visit [facility] Mental Health & Addiction [facility] 6401 [place] [address] Kristin Vázquez, [facility] 5641 [place] [address] 06/30/2024 2:00 PM CDT Virtual Visit [facility] [place] [address]4611 [place] [address] Kristin Vázquez, [facility] 8041 [place] [address] documented as of this encounter Visit Diagnoses Not on filedocumented in this encounter Additional Health Concerns Assessment Noted Time PHQ-9 Depression Total Score: 0 06/23/20 21 4:11 PM CDT documented as of this encounter Care Teams Auto Crane Driver Relationship Specialty Start Date End Date Winston Villatoro OD [facility] [place] [address] [place] [address] PCP - Ophthalmology Ophthalmology 02/11/13 Denise Woodson Ra, APRN RETINA SUBSPECIALIST [address] [address] [address] PCP - General Family Practice 09/21/20 Denise Woodson Ra, APRN RETINA SUBSPECIALIST [address] [address] [address] Assigned PCP 07/17/20 Usha Simon APRN RETINA SUBSPECIALIST 9 [facility]121[place], [place] [address] Nurse Practitioner Neurological Surgery 01/24/24 Dangelo Salinas MD [address] [place] [address] Neurology 01/27/24 documented as of this encounter
--- OUTSIDE RECORDS SUMMARY | 2024-02-22 15:23 | XMS_ITS | Encounter Summary ---
Author Organization [place] Address [address] [place] [address]. [place] [address] Care Team Providers Care Aeronautics Commission Director Name Role Phone Winston Villatoro Se OD Unavailable [phone] Denise Woodson Ra, APRN EMBEDDED SOFTWARE ENGINEER Unavailable +- [phone] Denise Woodson Ra, APRN EMBEDDED SOFTWARE ENGINEER Primary Care Provid er Usha Simon APRN EMBEDDED SOFTWARE ENGINEER Unavailable + [phone] Dangelo Salinas MD Unavailable Encounter Details Date [...] Info) Description 02/26/2024 1:40 PM CDT Appointment [facility] [address] [facility] [address] [place] [address] Denise Woodson Ra CASING MACHINE OPERATOR EMBEDDED SOFTWARE ENGINEER [address] [place] [address] 02/26/2024 2:15 PM CDT Therapy Visit [facility] 150 [place] [address] Danya You, PA [address] [place] [address] Charis Chacon, JUAN [facility] [address] [place] [address] 02/26/2024 3:00 PM CDT Therapy Visit [address] [phone] Danya You, AMAIRANI [address] [place], [place] 1213[address] Isabel Beaulieu OTR FV [address] [address] 02/27/2024 4:45 PM CDT Therapy Visit [address] [phone] Danya You, PA 2450 [facility] 213 [place], [place] 4420[address] Vanessa Duggan, PT 03/05/2024 1:30 PM CDT Therapy Visit [address] [phone] Danya You, AMAIRANI [address] [place] [address] Isabel Beaulieu OTR [address] [address] 03/05/2024 3:15 PM CDT Therapy Visit [address] [phone] Danya You, AMAIRANI 2450 [facility] [address] [address] Charis Chacon SLP [facility] [address] [place] [address] 03/05/2024 4:15 PM CDT Therapy Visit [address] [phone] Danya You, PA 2450 [facility] [address] [address] Delicia George, PT [facility] [address] [place] [address] 03/11/2024 2:15 PM CDT Therapy Visit [address] [phone] Danya You, PA 2450 [facility] [address] [address] Isabel Beaulieu OTR [address] [address] 03/11/2024 3:00 PM CDT Therapy Visit [address] [phone] Danya You PA 2450 [facility] [address] [address] Charis Chacon, JUAN [facility] [address] [place] [address] 03/11/2024 4:15 PM CDT Therapy Visit [address] [phone] Danya You, PA [address] 125[address] Delicia George, PT [facility] [address] 7296[address] 03/17/2024 10:00 AM CDT Office Visit [facility] [address] [place] [address] Denise Woodson Ra, CASING MACHINE OPERATOR EMBEDDED SOFTWARE ENGINEER [address] [place], [place] 34507[address] 03/17/2024 1:30 PM CDT Therapy Visit [address] [phone] Danya You, PA [facility] [address] [address] Isabel Beaulieu, OTR [address] [address] 03/17/2024 2:30 PM CDT Therapy Visit [address] [phone] Danya You, PA 3620 [facility] [address] 8[address] Charis Chacon, JUAN [facility] [address] [place] [address] 03/17/2024 4:00 PM CDT Therapy Visit [facility] 150 [place] [address] Danya You, PA [address] [place], [place] 234694 Vanessa Duggan, PT 03/23/2024 10:30 AM CDT Office Visit [facility] [address] [place] [address] Denise Woodson Ra, CASING MACHINE OPERATOR EMBEDDED SOFTWARE ENGINEER [address] [place], [place] 8[address]16[address] 03/26/2024 1:30 PM CDT Therapy Visit [facility] 150 [place] [address] Danya You, PA [address] [place], [place] 260884 Isabel Beaulieu, OTR [facility] 150 [place] [address] 03/26/2024 2:30 PM CDT Therapy Visit [facility] 150 [place] [address] Danya You, PA [address] [place] [address] Charis Chacon, JUAN [facility] [address] [place] [address] 03/26/2024 3:30 PM CDT Therapy Visit [facility] 150 [place] [address] Danya You, AMAIRANI [address] [address] Delicia George, PT [address] [address] 04/02/2024 2:15 PM CDT Therapy Visit [address] [phone] Danya You, AMAIRANI [address] [address] Isabel Beaulieu, OTJah [address] [address] 04/02/2024 3:15 PM CDT Therapy Visit [address] [phone] Danya You, PA [facility] [address] [address] Charis Chacon, JUAN [facility] [address] [place] [address] 04/02/2024 4:15 PM CDT Therapy Visit [address] [phone] Danya You, PA [address] [address] Delicia George, PT [place] [address] [place] [address] 04/09/2024 3:15 PM CDT Therapy Visit [address] [address] Danya You, PA [address] [place] [address] Charis Chacon, MAIL DELIVERY SUPERVISOR [facility] [address] [place] [address] 04/09/2024 4:15 PM CDT Therapy Visit [address] [phone] Danya You, PA [address] [place] [address] Delicia George, PT [facility] [address] [place] [address] 04/15/2024 9:30 AM CDT Therapy Visit [address] [phone] Danya You, PA [address] [address] Danya Restrepo, MAIL DELIVERY SUPERVISOR 04/23/2024 2:30 PM CDT Therapy Visit [address] [phone] Danya You, PA [address] [place] [address] Charis Chacon, J[facility]AN [facility] [address] [place] [address] 05/05/2024 2:30 PM CDT Office Visit [facility] [address], [address] [place] [address] Rohit Barcenas MD [address] [place] [address] 295 [place], [place] [address] 06/23/2024 11:00 AM CDT Virtual Visit [facility] Mental Health & Addiction [facility] 6401 [place] [address] Kristin Vázquez, [facility] 6341 [place] [address] 06/30/2024 2:00 PM CDT Virtual Visit [facility] Mental Health & Addiction [facility] 6401 [place] [address] Kristin Vázquez, [facility] 6341 [place] [address] documented as of this encounter Visit Diagnoses Not on filedocumented in this encounter Additional Health Concerns Assessment Noted Time PHQ-9 Depression Total Score: 0 06/23/20 21 4:11 PM CDT documented as of this encounter Care Teams Aeronautics Commission Director Relationship Specialty Start Date End Date Winston Villatoro OD [facility] [place] 701 [facility] [address] [place] [id number] PCP - Ophthalmology Ophthalmology 02/11/13 Denise Woodson Ra, CASING MACHINE OPERATOR EMBEDDED SOFTWARE ENGINEER [address] [address] [id number] PCP - General Family Practice 09/21/20 Denise Woodson Ra, APRN EMBEDDED SOFTWARE ENGINEER [address] [facility] [place] [address] Assigned PCP 07/17/20 Usha Simon APRN EMBEDDED SOFTWARE ENGINEER 909 [facility]121[place], [place] [address] Nurse Practitioner Neurological Surgery 01/24/24 Dangelo Salinas MD 1650 [facility] 200 [place], [place] [address] Neurology 01/27/24 documented as of this encounter
--- OUTSIDE RECORDS SUMMARY | 2024-02-22 15:23 | XMS_ITS | Encounter Summary ---
Author Organization [place] Address [address] [place] [address]. [place] [address] Care Team Providers Care Drywall Applicator Name Role Phone Winston Villatoro OD Unavailable [phone] Denise Woodson Ra, APRN MAIN ENTREE COOK AND CASHIER Unavailable Denise Woodson Ra GERMAN TUTOR MAIN ENTREE COOK AND CASHIER Primary Care Provid er Usha Simon APRN MAIN ENTREE COOK AND CASHIER Unavailable + [phone] Dangelo Salinas MD Unavailable Encounter Details Date Type Department Care Team (Late st Contact Info) Description 02/03/2024 [facility] [address] [place] [address] Denise Woodson Ra, APRN MAIN ENTREE COOK AND CASHIER [address] [place] [address] Social History Tobacco Use Types [...] encounter Miscellaneous Notes * Telephone Encounter - Aliya Díaz RN - 02/03/2024 10:52 AM CDT Please see . Plan to discuss at upcoming visit with you on 02/06/24? Aliya Díaz RN on 02/03/2024 at 10:53 AM documented in this encounter Plan of Treatment Upcoming Encounters Date Type Department Care Team (Late st Contact Info) Description 02/26/2024 1:40 PM CDT Appointment [facility] [address] [place] [phone] Denise Woodson Ra, GERMAN TUTOR MAIN ENTREE COOK AND CASHIER [address] [place] [address] 02/26/2024 2:15 PM CDT Therapy Visit [address] [phone] Danya You, PA [address] [place], [place] [address] Charis Chacon SLP [facility] [address] [place] [address] 02/26/2024 3:00 PM CDT Therapy Visit [address] [phone] Danya You, PA [address] [place] [address] Isabel Beaulieu, JAIMIE [facility] [address] [place] [address] 02/27/2024 4:45 PM CDT Therapy Visit [address] [place] [address] Danay You, PA [address] [address] Vanessa Duggan, PT 03/05/2024 1:30 PM CDT Therapy Visit [address] [phone] Danya You, PA [address] [address] Isabel Beaulieu OTJah [address] [address] 03/05/2024 3:15 PM CDT Therapy Visit [address] [address] Danya You, PA [address] [address] Charis Chacon, PLATER HELPER [facility] [address] [place] [address] 03/05/2024 4:15 PM CDT Therapy Visit [address] [phone] Danya You, PA [address] [address] Delicia George, PT [facility] [address] [place] [address] 03/11/2024 2:15 PM CDT Therapy [facility] 150 [place] [address] Danya You, AMAIRANI [address] [place] [address] Isabel Beaulieu, OTR [facility] 150 [place] [address] 03/11/2024 3:00 PM CDT Therapy Visit [address] [phone] Danya You, AMAIRANI [address] [address] Charis Chacon, JUAN [facility] [address] [place] [address] 03/11/2024 4:15 PM CDT Therapy Visit [address] [phone] Danya You, PA [address] [address] Delicia George, PT [facility] [address] [place] [address] 03/17/2024 10:00 AM CDT Office Visit [facility] [address] [place] [address] Denise Woodson Ra, GERMAN TUTOR [facility] [address] [place], [place] [address] 03/17/2024 1:30 PM CDT Therapy Visit [address] [place] [address] Danya You PA [address] 7[address] Isabel Beaulieu, OTR [facility] 150 [place] [address] 03/17/2024 2:30 PM CDT Therapy Visit [address] [phone] Danya You, A[facility]IRANI [facility] [facility] [address] [address] Charis Chacon SLP [facility] [address] [place] [address] 03/17/2024 4:00 PM CDT Therapy Visit [address] [phone] Danya You, AMAIRANI [address] [place] [address] Vanessa Duggan, PT 03/23/2024 10:30 AM CDT Office Visit [facility] [address] [place] [phone] Denise Woodson Ra, GERMAN TUTOR [facility] [address] [place] [address] 03/26/2024 1:30 PM CDT Therapy Visit [address] [phone] Danya You PA [address] [place] [address] Isabel Beaulieu, OTR [facility] [address] [place] [address] 03/26/2024 2:30 PM CDT Therapy Visit [facility] 150 [place] [address] Danya You, PA [address] [place] [address] Charis Chacon, [facility] [address] [place] [address] 03/26/2024 3:30 PM CDT Therapy Visit [address] [phone] Danya You, PA [address] [place] [address] Delicia George, PT [facility] [address] [place] [address] 04/02/2024 2:15 PM CDT Therapy Visit [facility] 150 [place] [phone] Danya You, PA [address] [place] [address] Isabel Beaulieu, [facility]TR [facility] [address] [place] [address] 04/02/2024 3:15 PM CDT Therapy Visit [address] [address] Danya You PA [address] [place] [address] Charis Chacon SLP [facility] [address] [place] [address] 04/02/2024 4:15 PM CDT Therapy Visit [facility] 150 [place] [address] Danya You, AMAIRANI [address] 587834 Delicia George, PT [address] 49[address] 04/09/2024 3:15 PM CDT Therapy Visit [facility] 150 [place] [address] Danya You, AMAIRANI [address] [address] Charis Chacon, JUAN [facility] [address] [place] [address] 04/09/2024 4:15 PM CDT Therapy Visit [facility] [address] [place] [address] Danya You PA [address] [address] Delicia George, PT [address] 892715 04/15/2024 9:30 AM CDT Therapy Visit [facility] 150 [place] [address] Danya You PA [address] [place] [address] Danya Restrepo, PLATER HELPER 04/23/2024 2:30 PM CDT Therapy Visit M [address] [phone] Danya You, AMAIRANI [address] [place] [address] Charis Chacon, [facility]AN [facility] [address] [place] [address] 05/05/2024 2:30 PM CDT Office Visit [facility] Epilepsy [facility] [address], [address] [place] [phone] Rohit Barcenas MD [address] [place] [address] 295 [place] [address] 06/23/2024 11:00 AM CDT Virtual Visit [facility] [address] [place] [address] Kristin Vázquez, [facility] [address] [place] [address] 06/30/2024 2:00 PM CDT Virtual Visit [facility] [address] [address] Kristin Vázquez, [facility] 6341 [facility] PRIMO CORTEZ [address] documented as of this encounter Visit Diagnoses Not on filedocumented in this encounter Additional Health Concerns Assessment Noted Time PHQ-9 Depression Total Score: 0 06/23/20 21 4:11 PM CDT documented as of this encounter Care Teams Drywall Applicator Relationship Specialty Start Date End Date Winston Villatoro OD [facility] [place] [address] [place] [address] PCP - Ophthalmology Ophthalmology 02/11/13 Denise Woodson Ra, APRN MAIN ENTREE COOK AND CASHIER [address] [place] [address] PCP - General Family Practice 09/21/20 Denise Woodson Ra, APRN MAIN ENTREE COOK AND CASHIER [address] [facility] [place] [address] Assigned PCP 07/17/20 Usha Simon APRN MAIN ENTREE COOK AND CASHIER [address] [facility]J [place] [address] Nurse Practitioner Neurological Surgery 01/24/24 Dangelo Salinas MD [address] [facility] [address] [place] [address] Neurology 01/27/24 documented as of this encounter
--- OUTSIDE RECORDS SUMMARY | 2024-02-22 15:23 | XMS_ITS | Encounter Summary ---
Author Organization [place] Address [address] [place] [address]. [place] [address] Care Team Providers Care Certified Hand Therapist Name Role Phone Winston Villatoro OD Unavailable [phone] Denise Woodson Ra, APRN FINANCE INTERN Unavailable + [phone] Denise Woodson Ra, APRN FINANCE INTERN Primary Care Provid er Usha Simon APRN FINANCE INTERN Unavailable +- [phone] Dangelo Salinas MD Unavailable Reason for Visit * Rehab Therapy Integrated Services (Routine) - Authorized Specialty Diagnoses / Procedures Referred By Nila shah Referred To Contact Diagnoses Cerebrovascular accident (CVA), unspecified mechanism (H) [address] [address] Referral ID Status Reason Start Date Expiration Date V isits Requested Visits Authorized [id number] Authorized 09/16/2023 09/15/2024 365 365 Encounter Details Date Type Department Care Team (Late st Contact Info) Description 02/03/2024 8:45 AM CDT Therapy Visit [address] [address] Denise Woodson Ra, MARKETING TECHNOLOGY COORDINATOR FINANCE INTERN [address] [place] [address] Addis Rojas, PT [facility] [address] [place] [address] Cerebrovascular accident (CVA), unspecified mechanism (H) (Primary [...] Info) Description 02/26/2024 1:40 PM CDT Appointment [facility] Imaging [address] [facility] [address] [place] [phone] Denise Woodson Ra, MARKETING TECHNOLOGY COORDINATOR FINANCE INTERN [address] [place] [address] 02/26/2024 2:15 PM CDT Therapy Visit [address] [phone] Danya You PA [address] [place] [address] Charis Chacon, JUAN [facility] [address] [place] [address] 02/26/2024 3:00 PM CDT Therapy Visit [address] [phone] Danya You PA [address] [place] [address] Isabel Beaulieu, OTR [facility] 150 [place] [address] 02/27/2024 4:45 PM CDT Therapy Visit [facility] 150 [place] [address] Danya You, PA [address] [address] Vanessa Duggan, PT 03/05/2024 1:30 PM CDT Therapy Visit [address] [phone] Danya You, PA [address] 792[address] Isabel Beaulieu, OTR [facility] [address] [place] [address] 03/05/2024 3:15 PM CDT Therapy Visit [address] [phone] Danya You, PA [address] 543274 Charis Chacon, CUSTOMER SERVICES MANAGER [facility] [address] [place] [address] 03/05/2024 4:15 PM CDT Therapy Visit [address] [phone] Danya You, PA [address] 562264 Delicia George, PT [address] [address] 03/11/2024 2:15 PM CDT Therapy Visit [address] [phone] Danya You, AMAIRANI [facility] [address] [address] Isabel Beaulieu, OTR [address] [address] 03/11/2024 3:00 PM CDT Therapy Visit [address] [phone] Danya You, AMAIRANI [facility] [address] [address] Charis Chacon, [facility] [address] [place] [address] 03/11/2024 4:15 PM CDT Therapy Visit [address] [phone] Danya You, PA [address] [place] [address] Delicia George, PT [facility] [address] [place] [address] 03/17/2024 10:00 AM CDT Office Visit [address] [address] Denise Woodson Ra, MARKETING TECHNOLOGY COORDINATOR FINANCE INTERN [address] [place] [address] 03/17/2024 1:30 PM CDT Therapy Visit [address] [phone] Danya You, AMAIRANI Muller[address] [address] Isabel Beaulieu, OTR [address] [address] 03/17/2024 2:30 PM CDT Therapy Visit [address] [phone] Danya You, PA [address] [address] Charis Chacon, [facility] [address] [place] [address] 03/17/2024 4:00 PM CDT Therapy Visit [address] [phone] Danya You, PA [address] [address] Vanessa Duggan, PT 03/23/2024 10:30 AM CDT Office Visit [facility] [address] [place] [phone] Denise Woodson Ra, MARKETING TECHNOLOGY COORDINATOR FINANCE INTERN [address] [place] [address] 03/26/2024 1:30 PM CDT Therapy Visit [address] [phone] Danya You, AMAIRANI 2450 [facility] [address] [address] Isabel Beaulieu, JAIMIE SHEPPARD [address] [address] 03/26/2024 2:30 PM CDT Therapy Visit [address] [phone] Danya You, AMAIRANI [facility] [address] [address] Charis Chacon, [facility] [address] [place] [address] 03/26/2024 3:30 PM CDT Therapy Visit [address] [phone] Danya You, PA [address] [place] [address] Delicia George, PT [facility] [address] [place] [address] 04/02/2024 2:15 PM CDT Therapy Visit [address] [phone] Danya You PA [address] [place], [place] [address]E [address] [address] Isabel Beaulieu, OTR [facility] [address] [place] [address] 04/02/2024 3:15 PM CDT Therapy Visit [facility] [address] [place] [address] Danya You, PA [facility] [address] [address] Charis Chacon, [facility] [address] [place] [address] 04/02/2024 4:15 PM CDT Therapy Visit [address] [phone] Danya You, PA [address] [address] Delicia George, PT [facility] [place] [address] [place] [address] 04/09/2024 3:15 PM CDT Therapy Visit [address] [phone] Danya You, PA 2450 [facility] [address] [address] [place] [address] Charis Chacon, [facility] [address] [place], [place] [address] 04/09/2024 4:15 PM CDT Therapy Visit [address] [phone] Danya You, PA [facility] [address] [place] [address] Delicia George, PT [facility] [address] [place] [address] 04/15/2024 9:30 AM CDT Therapy Visit [address] [phone] Danya You PA [address] [place] [address] [address] [place] [address] Danya Restrepo, CUSTOMER SERVICES MANAGER 04/23/2024 2:30 PM CDT Therapy Visit [address] [phone] Danya You, PA [address] [place], [place] [address]Analy [address] [address] Charis Chacon, CUSTOMER SERVICES MANAGER [facility] [address] [place] [address] 05/05/2024 2:30 PM CDT Office Visit [facility] Ep[facility]psy Care [address], [address] [place] [phone] Rohit Barcenas MD [address] [place] [address] [address] [place] [address] 06/23/2024 11:00 AM CDT Virtual Visit [facility] & [facility] [address] [place] [phone] Kristin Vázquez, [facility] [address] [place] [phone] 06/30/2024 2:00 PM CDT Virtual Visit [facility] 64[address] [facility] PRIMO Gold [phone] Gurpreet Kristin Se, [facility] 6341 [facility] [place] [phone] documented as of this encounter Visit Diagnoses Diagnosis Cerebrovascular accident (CVA), unspecified mechanism (H)- Primary documented in this encounter Additional Health Concerns Assessment Noted Time PHQ-9 Depression Total Score: 0 06/23/20 21 4:11 PM CDT documented as of this encounter Care Teams Certified Hand Therapist Relationship Specialty Start Date End Date Winston Villatoro, [facility] [place] [address] [place] [address] PCP - Ophthalmology Ophthalmology 02/11/13 Denise Woodson Ra, APRN FINANCE INTERN [address] [place] [address] PCP - General Family Practice 09/21/20 Denise Woodson Ra, APRN FINANCE INTERN [address] [place] [address] Assigned PCP 07/17/20 Usha Simon APRN FINANCE INTERN [address]09 [facility] [id number] [place] [address] Nurse Practitioner Neurological Surgery 01/24/24 Dangelo Salinas MD [address] [place] [address] Neurology 01/27/24 documented as of this encounter
--- OUTSIDE RECORDS SUMMARY | 2024-02-22 15:23 | XMS_ITS | Encounter Summary ---
Author Organization [facility] Address [address] [place] [address] Care Team Providers Care Sat Tutor Name Role Phone ShaunaWinston OD Unavailable [phone] Denise Woodson Ra, APRN POTATO SORTER Unavailable [phone]- [phone] Denise Woodson Ra, APRN POTATO SORTER Primary Care Provid er Usha Simon APRN POTATO SORTER Unavailable [phone]- [phone] Dangelo Salinas MD Unavailable Encounter Details Date Type Department Care Team (Late st Contact Info) Description 01/30/2024 [facility] [address] [place] [address] Stacey Kelley RN Social History [...] Miscellaneous Notes * Telephone Encounter - Stacey Kelley, GEMA - 01/30/2024 10:12 AM CDT Images from the original note were not included. Raul Hoyos MD P Stroke/Neurovascular Nurses Hi - if she is going to have most of her other care in [facility] and is going to stay in [facility](except for neurosurgery) she should follow there. If she is going to stay in our system, I can seeher. Thanks Called patient to discuss where most of her care is taking place. [facility] for patient letting her knowI was calling from Dr. Hoyos's office with a couple questions and will send her a [employer]bon message. Left my contact information for further questions/concerns. Stacey Kelley, RN 01/30/2024 10:15 AM documented in this encounter Plan of Treatment Upcoming Encounters Date Type Department Care Team (Late st Contact Info) Description 02/26/2024 1:40 PM CDT Appointment [facility] [address] [place] [phone] Denise Woodson Ra, FINISH MENDER POTATO SORTER [address] [place] [address] 02/26/2024 2:15 PM CDT Therapy Visit [facility] [address] [place] [address] Danya You, PA 2450 [facility] [address] [place], [place] 5097[address] Charis Chacon, PROOFER BLACK AND WHITE [facility] [address] [place] [address] 02/26/2024 3:00 PM CDT Therapy Visit [facility] [address] [place] [address] Danya You PA 2450 [facility] [address] [place], [place] [address] Isabel Beaulieu, JAIMIE [facility] [address] [place] [address] 02/27/2024 4:45 PM CDT Therapy Visit [facility] [address] [place] [address] Danya You, PA [address] [place], [place] [address] Vanessa Duggan, PT 03/05/2024 1:30 PM CDT Therapy Visit [facility] [address] [place] [address] Danya You, PA [address] [address] Isabel Beaulieu, OTR [facility] [address] [place] [address] 03/05/2024 3:15 PM CDT Therapy Visit [address] [address] Danya You, PA [address] [address] Charis Chacon, PROOFER BLACK AND WHITE [facility] [address] [place] [address] 03/05/2024 4:15 PM CDT Therapy Visit [address] [phone] Danya You, PA [address] [place], [place] [address] Delicia George, PT [facility] [address] [address] 03/11/2024 2:15 PM CDT Therapy Visit [address] [address] Danya You, AMAIRANI Muller0 [address] CERON [address] [address] Isabel Beaulieu, OTR [address] [address] 03/11/2024 3:00 PM CDT Therapy Visit [address] [address] Danya You, PA [facility] [address] [address] Charis Chacon, JUAN [facility] [address] [place] [address] 03/11/2024 4:15 PM CDT Therapy Visit [address] [address] Danya You, PA [address] [place], [place] [address] [address] [address] Delicia George, PT [address] [address] 03/17/2024 10:00 AM CDT Office Visit [facility] [address] [place] [address] Denise Woodson Ra, FINISH MENDER [facility] [address] [place] [address] 03/17/2024 1:30 PM CDT Therapy Visit [address] [address] Danya You, PA [address] [address] Isabel Beaulieu, OTR [address] [address] 03/17/2024 2:30 PM CDT Therapy Visit [address] [address] Danya You, PA 2450 [facility] [address] [address] Charis Chacon, JUAN [facility] [address] [place] [address] 03/17/2024 4:00 PM CDT Therapy Visit [address] [phone] Danya You, PA 2450 [facility] [address] [address] Vanessa Duggan, GALINA 03/23/2024 10:30 AM CDT Office Visit [facility] [address] [place] [phone] Denise Woodson Ra, APRN POTATO SORTER [address] [place] [address] 03/26/2024 1:30 PM CDT [facility] 150 [facility] [place] [address] Danya You PA 2450 [facility] [address] [address] Isabel Beaulieu, OTR [facility] [address] [place] [address] 03/26/2024 2:30 PM CDT Therapy Visit [facility] [address] [place] [address] Danya You, AMAIRANI [facility] [address] [address] Charis Chacon, [facility] [address] [place] [address] 03/26/2024 3:30 PM CDT Therapy Visit [facility] [address] [place] [address] Danya You, AMAIRANI [facility] [address] [address] Delicia George, PT [facility] [address] [address] 04/02/2024 2:15 PM CDT Therapy Visit [facility] [address] [place] [address] Danya You PA [facility] [address] [address] Isabel Beaulieu, OTR [facility] [address] [place] [address] 04/02/2024 3:15 PM CDT Therapy Visit [address] [address] Danya You PA 2450 [address] [place] [address] Charis Chacon SLP [facility] [address] [place] [address] 04/02/2024 4:15 PM CDT Therapy Visit [address] [phone] Danya You, PA [address] [place] [address] Delicia George, PT [facility] [address] [place] [address] 04/09/2024 3:15 PM CDT Therapy Visit [address] [address] Danya You, PA [address] [place] [address] Charis Chacon, JUAN [facility] [address] [place] [address] 04/09/2024 4:15 PM CDT Therapy Visit [address] [address] Danya You PA [address] [place] [address] Delicia George, PT [facility] [address] [place] [address] 04/15/2024 9:30 AM CDT Therapy Visit [facility] [address] [place] [address] Danya You, PA [address] [place] [address] Danya Restrepo, PROOFER BLACK AND WHITE 04/23/2024 2:30 PM CDT Therapy Visit [address] [address] Danya You, PA [address] [place] [address] Charis Chacon, JUAN [facility] [address] [place] [address] 05/05/2024 2:30 PM CDT Office Visit [facility] Ep[facility]psy [facility] [address], [address] [place] [phone] Rohit Barcenas MD 420 [facility] [address] [place] [address] 06/23/2024 11:00 AM CDT Virtual Visit [facility] Mental Health & Addiction [facility] [address]01 [place] [phone] Kristin Vázquez, [facility] 6[address] [place] [address] 06/30/2024 2:00 PM CDT Virtual Visit [facility] Mental Health & Addiction [facility] 6401 [facility] [place] [facility] [place] [phone] Kristin Vázquez, [facility] 6341 [facility] PRIMO CORTEZ [phone] documented as of this encounter Visit Diagnoses Not on filedocumented in this encounter Additional Health Concerns Assessment Noted Time PHQ-9 Depression Total Score: 0 06/23/20 21 4:11 PM CDT documented as of this encounter Care Teams Sat Tutor Relationship Specialty Start Date End Date Winston Villatoro, AMELIE [facility] [place] [address] [place] [address] PCP - Ophthalmology Ophthalmology 02/11/13 Denise Woodson Ra, APRN POTATO SORTER [address] [place] [address] PCP - General Family Practice 09/21/20 Denise Woodson Ra, APRN POTATO SORTER [address] [place] [address] Assigned PCP 07/17/20 Usha Simon APRN POTATO SORTER 9 [facility] [id number] [address] Nurse Practitioner Neurological Surgery 01/24/24 Dangelo Salinas MD [address] [place] [address] Neurology 01/27/24 documented as of this encounter
--- OUTSIDE RECORDS SUMMARY | 2024-02-22 15:23 | XMS_ITS | Encounter Summary ---
Author Organization [facility] Address [address] [place] [address]. [place] [address] Care Team Providers Care Gelatin Maker Utility Name Role Phone Winston Villatoro OD Unavailable [phone] Denise Woodson Ra, APRN CHUTE OPERATOR Unavailable [phone] Denise Woodson Ra, APRN CHUTE OPERATOR Primary Care Provid er Usha Simon APRN CHUTE OPERATOR Unavailable [phone] Dangelo Salinas MD Unavailable Reason for Visit * Rehab Therapy Integrated Services (Routine) - Authorized Specialty Diagnoses / Procedures Referred By Nila shah Referred To Contact Diagnoses Cerebrovascular accident (CVA), unspecified mechanism (H) [address] [address] Referral ID Status Reason Start Date Expiration Date V isits Requested Visits Authorized [id number] Authorized 09/16/2023 09/15/2024 365 365 Encounter Details Date Type Department Care Team (Latest Contact Info) Description 01/29/2024 9:30 AM CDT Therapy Visit [address] [address] Danya You, PA [address] [place] [address] Danya Restrepo, TRUCKER HAND Cerebrovascular accident (CVA), unspecified mechanism (H) Social [...] this encounter Progress Notes * Danya Restrepo, TRUCKER HAND - 01/29/2024 9:30 AM CDT SPEECH LANGUAGE PATHOLOGY EVALUATION See electronic medical record for Abuse and Falls Screening details. 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 She had a seizure like activity and went to [facility] for a few days. Discharged in setting of acute mental status change, concern for seizure, workup felt not consistent with seizure, episodes felt related to fatigue/stress. Functionally making progress with ongoing strength, balance, activity tolerance, and cognition below baseline, plan for home with outpatient PT/OT/TRUCKER HAND. ARU from 01/21-01/26/24 before discharging home. She has been doing well being home - She also notes a lot of mental and physical fatigue. She can do something for about 15-20 minutes then takes a 20 minute nap. Presenting condition or subjective complaint: recent CVA; patient reported that things seem to be coming back slowly. [place] like she had ADD tendencies at baseline. 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 Did not qualify for FMLA. On LITA for 6 months.Disability approved for 8 weeks. 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 Rationale: To maximize safety and independence with cognitive function within the home or community Target Date: 04/27/24 TRUCKER HAND Goal 2 Goal Identifier: Memory Goal Description: Alcon will complete moderate-complex memory based tasks with >90% accuracy given environmental supports across 2 consecutive sessions. Rationale: To maximize safety and independence with cognitive function within the home or community Target Date: 04/27/24 TRUCKER HAND Goal 3 Goal Identifier: Problem Solving Goal Description: Alcon will complete moderate-complex deductive reasoning/problem solving tasks with >90% accuracy given environmental supports across 2 consecutive sessions. Rationale: To maximize safety and independence with cognitive function within the home or community Target Date: 04/27/24 TRUCKER HAND Goal 4 Goal Identifier: Standardized Assessment Goal [...] Sound production (artic, phonology, apraxia, dysarthria) Minutes (12065): 45 The patient will be discharged from therapy when terminal gauger goals are met, displays a plateau in progress, or demonstrates resistance or low motivation for therapy after redirections have been made. The patient may be discharged from therapy when parents or guardians wish to discontinue therapy and/or fails to adhere to [facility]'s attendance policy. Thank you for referring Alcon Zamora to outpatient speech therapy at [facility]. Please call Danya Restrepo MS, TRUCKER HAND-CCC at [phone] or email [email or web address] with any questions or concerns. Danya Restrepo MS, CCC-TRUCKER HAND documented in this encounter Plan of Treatment Upcoming Encounters Date Type Department Care Team (Late st Contact Info) Description 02/26/2024 1:40 PM CDT Appointment [facility] [place] [address] [facility] [address] [place] [address] Denise Woodson Ra, COAL CUTTING MACHINE OPERATOR CHUTE OPERATOR [address] [place] [address] 02/26/2024 2:15 PM CDT Therapy Visit [facility] [address] [address] Danya You, PA [address] [place] [address] Charis Chacon SLP [facility] [address] [place] [address] 02/26/2024 3:00 PM CDT Therapy Visit [facility] [place] [address] [place] [address] Danya You, PA [address] [address] Isabel Beaulieu, OTR [facility] [address] [place] [address] 02/27/2024 4:45 PM CDT Therapy Visit [facility] [address] [place] [address] Danya You, PA [address] [address] Vanessa Duggan, PT 03/05/2024 1:30 PM CDT Therapy Visit [facility] [address] [place] [address] Danya You PA [address] [address] Isabel Beaulieu, OTR [facility] [address] [place] [address] 03/05/2024 3:15 PM CDT Therapy Visit [facility] [address] [place] [address] Danya You PA [address] [place] [address] Charis Chacon SLP [facility] [address] [place] [address] 03/05/2024 4:15 PM CDT Therapy Visit [facility] [address] [place] [address] Danya You, PA [address] [place] [address] Delicia George, PT [facility] [address] [address] 03/11/2024 2:15 PM CDT Therapy Visit [facility] [address] [place] [address] Danya You, PA [address] [place] [address] Isabel Beaulieu, OTR [facility] [address] [place] [address] 03/11/2024 3:00 PM CDT Therapy Visit [facility] [address] [place] [address] Danya You, AMAIRANI [address] [place] [address] Charis Chacon, JUAN [facility] [address] [place] [address] 03/11/2024 4:15 PM CDT Therapy Visit [facility] [address] [place] [address] Danya You PA [address] [place] [address] Delicia George, PT [facility] [address] [address] 03/17/2024 10:00 AM CDT Office Visit [facility] [address] [place] [address] Denise Woodson Ra, COAL CUTTING MACHINE OPERATOR CHUTE OPERATOR [address] [place], [place] [address] 03/17/2024 1:30 PM CDT Therapy Visit [facility] [address] [place] [address] Danya You, AMAIRANI [address] [address] Isabel Beaulieu, OTR [address] [address] 03/17/2024 2:30 PM CDT Therapy Visit [address] [phone] Danya You, PA [address] [address] Charis Chacon SLP [facility] [address] [place] [address] 03/17/2024 4:00 PM CDT Therapy Visit [facility] [address] [place] [address] Danya You, PA 2450 [facility] [address] [place] [address] Vanessa Duggan, PT 03/23/2024 10:30 AM CDT Office Visit [facility] [address] [place] [address] Denise Woodson Ra, COAL CUTTING MACHINE OPERATOR CHUTE OPERATOR [address] [place], [place] [address] 03/26/2024 1:30 PM CDT Therapy Visit [address] [phone] Danya You, PA [facility] [address] [address] Isabel Beaulieu, JAIMIE [address] [address] 03/26/2024 2:30 PM CDT Therapy Visit [address] [address] Danya You, PA [address] [place] [address] Charis Chacon, JUAN [facility] [address] [place] [address] 03/26/2024 3:30 PM CDT Therapy Visit [address] [phone] Danya You, AMAIRANI [address] [place] [address] Delicia George, PT [facility] [address] [place] [address] 04/02/2024 2:15 PM CDT Therapy Visit [facility] [address] [place] [address] Danya You, PA [address] [place] [address] Isabel Beaulieu OTR [facility] 150 [place] [address] 04/02/2024 3:15 PM CDT Therapy Visit [address] [phone] Danya You, PA [address] [address] Charis Chacon, JUAN [facility] [address] [place] [address] 04/02/2024 4:15 PM CDT Therapy Visit [address] [phone] Danya You, PA [address] [place] [address] Delicia George, PT [facility] [address] [place] [address] 04/09/2024 3:15 PM CDT Therapy Visit [address] [address] Danya You PA [address] [place] [address] Charis Chacon, JUAN [facility] [address] [place] [address] 04/09/2024 4:15 PM CDT Therapy Visit [address] [phone] Danya You PA [address] [place] [address] Delicia George, PT [facility] [address] [place] [address] 04/15/2024 9:30 AM CDT Therapy Visit [address] [address] Danya You PA 2450 [facility] [address] [place] [address] Danya Restrepo SLP 04/23/2024 2:30 PM CDT Therapy Visit [address] [phone] Danya You PA [facility] JIE [address] [place] [address] Charis Chacon, JUAN [facility] [address] [place] [address] 05/05/2024 2:30 PM CDT Office Visit [facility] Epilepsy [facility] [address], [address] [place] [phone] Rohit Barcenas MD 420 [facility] 295 [place] [address] 06/23/2024 11:00 AM CDT Virtual Visit [facility] 6401 [place] [address] Kristin Vázquez, [facility] 6341 [place] [address] 06/30/2024 2:00 PM CDT Virtual Visit [facility] 6401 [place] [address] Kristin Vázquez, [facility] 6341 [place] [address] documented as of this encounter Visit Diagnoses Diagnosis Cerebrovascular accident (CVA), unspecified mechanism (H) documented in this encounter Additional Health Concerns Assessment Noted Time PHQ-9 Depression Total Score: 0 06/23/20 21 4:11 PM CDT documented as of this encounter Care Teams Gelatin Maker Utility Relationship Specialty Start Date End Date Winston Villatoro, AMELIE [facility] [place] [address] [place] [address] PCP - Ophthalmology Ophthalmology 02/11/13 Denise Woodson Ra, APRN CHUTE OPERATOR [address] [address] [address] PCP - General Family Practice 09/21/20 Denise Woodson Ra, APRN CHUTE OPERATOR [address] [place] [address] Assigned PCP 07/17/20 Usha Simon APRN CHUTE OPERATOR [address] [facility] [place] [address] Nurse Practitioner Neurological Surgery 01/24/24 Dangelo Salinas MD [address] [place] [address] Neurology 01/27/24 documented as of this encounter
--- OUTSIDE RECORDS SUMMARY | 2024-02-22 15:23 | XMS_ITS | Encounter Summary ---
Author Organization [place] Address [address] [place] [address] Care Team Providers Care Ignition Expert Name Role Phone Winston Villatoro OD Unavailable +[phone] Denise Woodson Ra, APRN FIBERGLASS CONTAINER WINDING OPERATOR Unavailable + [phone] Denise Woodson Ra, APRN FIBERGLASS CONTAINER WINDING OPERATOR Primary Care Provid er Usha Simon APRN FIBERGLASS CONTAINER WINDING OPERATOR Unavailable + [phone] Dangelo Salinas MD Unavailable Reason for Visit * Reason Onset Date Comments *-*INCOMING RECORDS*-* 01/31/2024 Encounter Details Date Type Department Care Team (Late st Contact Info) Description 01/31/2024 PRE VISIT [facility] [address] [place] [address] Usha Simon APRN [address] [place] [address] *-*INCOMING RECORDS*-* Social History Tobacco Use Types [...] Records Requested January 24, 2024 4:21 PM [id number] Facility [place] Outcome 4:24 pm Sent request for imaging to be pushed to PACS. -EDITH Toth on 01/29/2024 at 8:28 AM Imaging resolved into PACS. -EDITH Records Requested January 24, 2024 4:21 PM [id number] Facility [facility] 4:25 pm Sent request for imaging [...] Care Everywhere 01/15/24, 01/14/24 Bette Mantilla MD @[facility] Neuroscience Clinic 01/14/24 Roshni Molina MD @[facility] Neuro[facility] DISCHARGE SUMMARY from hospital Internal 01/22/24-Present (as of 01/24/24) Parminder Del Angel MD @[facility] 01/19/24-01/22/24 Jeevan Sheth MD @[facility] EEG Internal [facility] 01/19/24 EEG Videl 2-12 Hrs Unmonitored MEDICATION LIST Internal IMAGING (FOR ALL VISITS) IR PACS [facility] 01/09/24 IR Angio Carotid Bilat MRI (HEAD, NECK, SPINE) PACS [facility] 01/20/24 MRA Neck (Caroitd) 01/20/24 MR Brain 01/20/24 MRA Brain (COW) [place] 09/28/22 MR Cervical Spine 09/28/[address] (HEAD, NECK, SPINE) PACS [facility] 01/19/24 CT Head [place] 01/09/24 CTA Head & Neck Carotid [place] 09/27/22 CTA Head Neck 09/25/22 CT Head documented in this encounter Plan of Treatment Upcoming Encounters Date Type Department Care Team (Late st Contact Info) Description 02/26/2024 1:40 PM CDT Appointment [facility] Imaging [address] [place] [phone] Denise Woodson Ra, CUSTOM CAR BUILDER FIBERGLASS CONTAINER WINDING OPERATOR [address] [facility] [place] [address] 02/26/2024 2:15 PM CDT Therapy Visit [address] [phone] Danya You, PA [address] [place], [place] 80[address] Charis Chacon, JUAN [facility] [address] [place] [address] 02/26/2024 3:00 PM CDT Therapy Visit [address] [phone] Danya You, PA [address] [place], [place] [address] Isabel Beaulieu, JAIMIE [address] [address] 02/27/2024 4:45 PM CDT Therapy Visit [address] [address] Danya You, PA [address] [address] Vanessa Duggan, PT 03/05/2024 1:30 PM CDT Therapy Visit [facility] [address] [place] [address] Danya You, PA [address] [address] Isabel Beaulieu OTJah [facility] [address] [place] [address] 03/05/2024 3:15 PM CDT Therapy Visit [address] [phone] Danya You, PA [address] [address] Charis Chacon, PRINTED CIRCUIT BO[facility]DS [facility] [address] [place] [address] 03/05/2024 4:15 PM CDT Therapy Visit [address] [address] Danya You, PA [address] 7678[address] Delicia George, PT [facility] [address] [place] [address] 03/11/2024 2:15 PM CDT Therapy Visit [address] [place] [address] Danya You, AMAIRANI 2450 [facility] [address] [address] Isabel Beaulieu, OTR [facility] [address] [place] [address] 03/11/2024 3:00 PM CDT Therapy Visit [address] [phone] Danya You, AMAIRANI [address] [address] Charis Chacon SLP [facility] [address] [place] [address] 03/11/2024 4:15 PM CDT Therapy Visit [address] [phone] Danya You, PA 2450 [facility] [address] [address] Delicia George, PT [facility] [address] [place] [address] 03/17/2024 10:00 AM CDT Office Visit [facility] [address] [place] [address] Denise Woodson Ra, CUSTOM CAR BUILDER [facility] [address] [place], [place] [address] 03/17/2024 1:30 PM CDT Therapy Visit [address] [place] [address] Danya You PA [address] [place] [address] 558684 Isabel Beaulieu, OTR [facility] [address] [place] [address] 03/17/2024 2:30 PM CDT Therapy Visit [address] [phone] Danya You, AMAIRANI [address] 172724 Charis Chacon, [facility] [address] [place] [address] 03/17/2024 4:00 PM CDT Therapy Visit [address] [phone] Danya You, AMAIRANI [address] [place], [place] [address] 872974 Vanessa Duggan, PT 03/23/2024 10:30 AM CDT Office Visit [facility] [address] [place] [phone] Denise Woodson Ra, CUSTOM CAR BUILDER FIBERGLASS CONTAINER WINDING OPERATOR [address] [place], [place] 0784068 03/26/2024 1:30 PM CDT Therapy Visit [facility] [address] [place] [address] Danya You PA [address] 891571 Isabel Beaulieu, OTR [facility] [address] [place] [address] 03/26/2024 2:30 PM CDT Therapy Visit [facility] [address] [place] [phone] Danya You, PA [address] [place] [address] Charis Chacon, [facility] [address] [place] [address] 03/26/2024 3:30 PM CDT Therapy Visit [address] [phone] Danya You, PA [address] [place] [address] Delicia George, PT [facility] [address] [address] 04/02/2024 2:15 PM CDT Therapy Visit [facility] [address] [place] [phone] Danya You, PA [address] [place] [address] Isabel Beaulieu, OTR [facility] [address] [place] [address] 04/02/2024 3:15 PM CDT Therapy Visit [facility] [address] [place] [address] Danya You PA [address] [place] [address] Charis Chacon SLP [facility] [address] [place] [address] 04/02/2024 4:15 PM CDT Therapy Visit [address] [address] Danya You PA [address] [place] [address] Delicia George, PT [address] 784415 04/09/2024 3:15 PM CDT Therapy Visit [address] [address] Danya You, AMAIRANI [address] [address] Charis Chacon, J[facility] [address] [place] [address] 04/09/2024 4:15 PM CDT Therapy Visit [address] [phone] Danya You PA [address] [place] [address] Delicia George, PT [facility] [address] [place] [address] 714725 04/15/2024 9:30 AM CDT Therapy Visit M [facility] [address] [place] [address] Danya You PA [address] [place] [address] Danya Restrepo, PRINTED CIRCUIT BOARDS PINNER 04/23/2024 2:30 PM CDT Therapy Visit M [address] [phone] Danya You, PA [address] [place] [address] Charis Chacon, [facility] [address] [place] [address] 05/05/2024 2:30 PM CDT Office Visit M [facility] [address], [address] [place] [phone] Rohit Barcenas MD [address] [place] [address] [address] [place] [address] 06/23/2024 11:00 AM CDT Virtual Visit [facility] Addiction [facility] [address] [place] [phone] Kristin Vázquez, [facility] [address] [place] [address] 06/30/2024 2:00 PM CDT Virtual Visit [facility] 6401 [place] [phone] Kristin Vázquez, [facility] [address] [facility] [place] [address] documented as of this encounter Visit Diagnoses Not on filedocumented in this encounter Additional Health Concerns Assessment Noted Time PHQ-9 Depression Total Score: 0 06/23/20 21 4:11 PM CDT documented as of this encounter Care Teams Ignition Expert Relationship Specialty Start Date End Date Winston Villatoro OD [facility] [address] [place] [address] PCP - Ophthalmology Ophthalmology 02/11/13 Denise Woodson Ra, APRN FIBERGLASS CONTAINER WINDING OPERATOR [address] [place] [address] PCP - General Family Practice 09/21/20 Denise Woodson Ra, APRN FIBERGLASS CONTAINER WINDING OPERATOR [address] [facility] [place] [address] Assigned PCP 07/17/20 Usha Simon APRN FIBERGLASS CONTAINER WINDING OPERATOR 9 [facility]2121[place] [address] Nurse Practitioner Neurological Surgery 01/24/24 Dangelo Salinas MD 1650 [facility] [address] [place] [address] Neurology 01/27/24 documented as of this encounter
--- OUTSIDE RECORDS SUMMARY | 2024-02-22 15:23 | XMS_ITS | Encounter Summary ---
Author Organization [facility] Address [address] [place] [address] Care Team Providers Care Battery Container Tester Aluminum Name Role Phone Winston Villatoro OD Unavailable +[phone] Denise Woodson Ra, APRN SUPERVISOR [employer] Unavailable + [phone] Denise Woodson Ra, APRN SUPERVISOR INTERMEDIATES Primary Care Provid er Usha Simon APRN SUPERVISOR INTER[employer]IATES Unavailable + [phone] Dangelo Salinas MD Unavailable Reason for Visit * Reason Comments New Patient * Consultation (Routine: Next available opening) - Pending Review Specialty Diagnoses / Procedures Referred By Nila shah Referred To Contact Neurological Surgery Diagnoses Dural arteriovenous fistula Jeevan Sheth MD [address] [place] [address] Referral ID Status Reason Start Date Expiration Date V isits Requested Visits Authorized [id number] Pending Review 01/23/2024 01/22/2025 1 1 Encounter Details Date Type Department Care Team (Latest Contact Info) Description 01/31/2024 9:30 AM CDT Office Visit [facility] [address] [place] [address] Jeevan Sheth MD [address] [place] [address] Usha Simon APRN [address], [place] [address] Dural arteriovenous fistula Social History Tobacco Use [...] encounter Progress Notes * Usha Simon APRN SUPERVISOR INTERMEDIATES - 01/31/2024 9:30 AM CDT Images from the original note were not included. [facility] Department of Neurosurgery Name: Alcon Zamora Age: [age] year old : 1975 Referring provider: Jeevan Sheth 01/31/2024 Chief Complaint: Dural AVF Questionable FMD New Patient History of Present Illness: Alcon Zamora is a 48 year old female with past medical history of Lizy-Danlos syndrome, mild persistent asthma, anxiety and depression, fibromyalgia. [facility] sided pulsatile tinnitus on 01/09/24. [...] started on Levetiracetam. She was admitted to [facility] between 01/16- 01/19/2024 for acute inpatient rehab [...] Past Surgical History: Procedure Laterality Date C ROOM CLEANER PROCEDURE DATE: vag del. C ROOM CLEANER PROCEDURE DATE: 2000 tubal ligation C ROOM CLEANER PROCEDURE DATE: 1994 D&C CARDIAC SURGERY 06/2006 heart defect repair ESOPHAGOSCOPY, GASTROSCOPY, DUODENOSCOPY (EGD), COMBINED N/A 02/08/2021 Procedure: ESOPHAGOGASTRODUODENOSCOPY (EGD); Surgeon: Tuan Miller MD; Location: GI GI SURGERY 09/2020 gallbladder removed HC KNEE SCOPE,MED/LAT MENISECTOMY 08/04/13 LT HEART CATH, CLOSURE ATRIAL SEPTAL DEFECT 06/20/06 amplatzer septal occluder- serial #[id number] RW ROOM CLEANER (ABSTRACTED) pneumonia several times SURGICAL PATHOLOGY EXAM [...] Sensation intact throughout. Mild dysmetria with right xgovmt-uhaz-frvwfe testing. Gait: Walks slowly with slightly wide [...] will contact the patient with next steps. Addendum on 02/04/2024: Discussed and recent imaging reviewed by Dr. Zepeda who recommended to arrange a video visit on 02/12/2024 to discuss treatment options. Message sent to clinic nurse. Usha Simon CNP Department of Neurosurgery I spent 30 minutes on patient care activities related to this encounter on the date of service, including time spent reviewing the chart, obtaining history and examination and in counseling the patient, and in documentation in the electronic medical record. documented in this encounter Nursing Notes * Felicia Nicolegail - 01/31/2024 9:30 AM CDT Chief Complaint [...] [facility] Imaging [address] [place] [phone] Denise Woodson Ra, IVORY CARVER SUPERVISOR INTERMEDIATES [address] [facility] [address] 02/26/2024 2:15 PM CDT Therapy Visit [address] [phone] Danya You, PA Yoh[address] [place], [place] [address] Charis Chacon, JUAN [facility] [address] [place] [address] 02/26/2024 3:00 PM CDT Therapy Visit [address] [phone] Danya You, PA [address] [place], [place] 60[address] Isabel Beaulieu, JAIMIE [address] [address] 02/27/2024 4:45 PM CDT Therapy Visit [address] [phone] Danya You, PA [address] 861864 Vanessa Duggan, PT 03/05/2024 1:30 PM CDT Therapy Visit [address] [phone] Danya You, AMAIRANI [address] [address] Isabel Beaulieu, OTR [address] [address] 03/05/2024 3:15 PM CDT Therapy Visit [address] [phone] Danya You PA [address] [address] Charis Chacon, EMERGENCY RESPONSE OFFICER [facility] [address] [place] [address] 03/05/2024 4:15 PM CDT Therapy Visit [address] [phone] Danya You, PA [address] [address] Delicia George, PT [facility] [place] [address] [place] [address] 03/11/2024 2:15 PM CDT Therapy Visit [address] [phone] Danya You, PA [address] [place] [address] Isabel Beaulieu, OTR [facility] 150 [place] [address] 03/11/2024 3:00 PM CDT Therapy Visit [address] [address] Danya You, PA 2450 [facility] [address] [place] [address] Charis Chacon SLP [facility] [address] [place] [address] 03/11/2024 4:15 PM CDT Therapy Visit [address] [address] Danya You, PA [address] [facility] [address] [address] Delicia George, PT [facility] [address] [place] [address] 03/17/2024 10:00 AM CDT Office Visit [facility] [address] [place] [phone] Denise Woodson Ra, IVORY CARVER [facility] [address] [place], [place] 25[address] 03/17/2024 1:30 PM CDT Therapy Visit [address] [phone] Danya You PA [address] [facility] [address] [address] Isabel Beaulieu, OTR [address] [address] 03/17/2024 2:30 PM CDT Therapy Visit [address] [phone] Danya You, PA [address] [address] Charis Chacon, [facility] [address] [place] [address] 03/17/2024 4:00 PM CDT Therapy Visit [address] [address] Danya You, PA [address] [place] [address] Vanessa Duggan, PT 03/23/2024 10:30 AM CDT Office Visit [facility] [address] [place] [address] Denise Woodson Ra, IVORY CARVER [facility] [address] [place] [address] 03/26/2024 1:30 PM CDT Therapy Visit [address] [phone] Danya You PA [address] 337834 Isabel Beaulieu, OTR [facility] [address] [place] [address] 03/26/2024 2:30 PM CDT Therapy Visit [facility] 150 [facility] [place] [address] Danya oYu, AMAIRANI [address] [address] Charis Chacon, [facility] [address] [place] [address] 03/26/2024 3:30 PM CDT Therapy Visit [facility] [address] [place] [phone] Danya You, PA [address] [place] [address] Delicia George, PT [facility] [address] [place] [address] 04/02/2024 2:15 PM CDT Therapy Visit [facility] [address] [place] [phone] Danya You, PA [address] [place] [address] Isabel Beaulieu, OTR [facility] [address] [place] [address] 04/02/2024 3:15 PM CDT Therapy Visit [facility] [address] [place] [phone] Danya You PA [address] [place] [address] Charis Chacon, JUAN [facility] [address] [place] [address] 04/02/2024 4:15 PM CDT Therapy Visit [address] [address] Danya You PA [address] [address] Delicia George, PT [address] [address] 04/09/2024 3:15 PM CDT Therapy Visit [address] [address] Danya You PA [address] [place] [address] Charis Chacon, [facility]AN [facility] [address] [place] [address] 04/09/2024 4:15 PM CDT Therapy Visit [address] [address] Danya You PA [address] [place] [address] Delicia George, PT [facility] [address] [place] [address] 04/15/2024 9:30 AM CDT Therapy Visit M [facility] [address] [place] [phone] Danya You PA 2450 [facility] [address] [place] [address] Danya Restrepo, EMERGENCY RESPONSE OFFICER 04/23/2024 2:30 PM CDT Therapy Visit M [facility] [address] [place] [address] Danya You, PA [address] [place] [address] Charis Chacon, [facility] [address] [place] [address] 05/05/2024 2:30 PM CDT Office Visit M [facility] Epilepsy [facility] [address], [address] [place] [phone] Rohit Barcenas MD 420 [facility] [address] [place] [address] 06/23/2024 11:00 AM CDT Virtual Visit M [facility] Mental Health & [facility] [address] [address] Kristin Vázquez, [facility] 6341 [place] [address] 06/30/2024 2:00 PM CDT Virtual Visit [facility] 6401 [place] [address] Kristin Vázquez, [facility] [address]241 [place] [address] documented as of this encounter Visit Diagnoses Diagnosis Dural arteriovenous fistula Cerebral aneurysm, nonruptured documented in this encounter Additional Health Concerns Assessment Noted Time PHQ-9 Depression Total Score: 0 06/23/20 21 4:11 PM CDT documented as of this encounter Care Teams Battery Container Tester Aluminum Relationship Specialty Start Date End Date Shauna Winston SaezAMELIE [facility] [place] [address] [place] [address] PCP - Ophthalmology Ophthalmology 02/11/13 Denise Woodson Ra, APRN SUPER[employer] [address] [place] [address] PCP - General Family Practice 09/21/20 Denise Woodson Ra, APRN [employer] [address] [place] [address] Assigned PCP 07/17/20 Usha Simon APRN [employer] 909 [facility]2121[place], [place] [address] Nurse Practitioner Neurological Surgery 01/24/24 Dangelo Salinas MD [address] [place] [address] Neurology 01/27/24 documented as of this encounter
--- OUTSIDE RECORDS SUMMARY | 2024-02-22 15:23 | XMS_ITS | Encounter Summary ---
Author Organization [place] Address [address] [place] [address]. [place] [address] Care Team Providers Care Laminating Machine Operator Helper Name Role Phone Winston Villatoro Se OD Unavailable [phone] Denise Woodson Ra, APRN COMPACTING MACHINE OPERATOR/TENDER Unavailable +- [phone] Denise Woodson Ra, APRN COMPACTING MACHINE OPERATOR/TENDER Primary Care Provid er Usha Simon APRN COMPACTING MACHINE OPERATOR/TENDER Unavailable + [phone] Dangelo Salinas MD Unavailable Encounter Details Date Type Department Care Team (Latest Contact Info) Description 02/03/2024 Travel Social History Tobacco Use Types Packs/Day Years Used Date Smoking Tobacco: Never Smokeless Tobacco: Never Alcohol Use Standard Drinks/Week Comments Not Currently 0 (1 standard drink = 0.6 oz pur e alcohol) minimal PHQ-2 Answer Date Recorded PHQ-2 Score 6 02/04/2024 Adolescent Education Answer Date Record ed Getting School Help Needed Not on file 07/01 Sex and Gender Information Value Date Recorded Sex Assigned at Not on file Gender Identity Not on file Sexual Orientation Not on file documented as of this encounter Plan of Treatment Upcoming Encounters Date Type Department Care Team (Late st Contact Info) Description 02/26/2024 1:40 PM CDT Appointment [facility] [address] [facility] [address] [place] [address] Denise Woodson Ra WARD SUPERVISOR COMPACTING MACHINE OPERATOR/TENDER [address] [place] [address] 02/26/2024 2:15 PM CDT Therapy Visit [facility] [address] [place] [phone] Danya You, PA [address] 213 [address] Charis Chacon, [facility] [address] [place] [address] 02/26/2024 3:00 PM CDT Therapy Visit [address] [phone] Danya You, AMAIRANI [address] [phone] Isabel Beaulieu OTR [facility] [address] [address] 02/27/2024 4:45 PM CDT Therapy Visit [address] [phone] Danya You, PA [facility] [phone] Vanessa Duggan, PT 03/05/2024 1:30 PM CDT Therapy Visit [address] [phone] Danya You, AMAIRANI [address] 213 [address] Isabel Beaulieu OTR [address] [address] 03/05/2024 3:15 PM CDT Therapy Visit [address] [phone] Danya You, AMAIRANI 2450 [facility] [address] [address] Charis Chacon SLP [facility] [address] [place] [address] 03/05/2024 4:15 PM CDT Therapy Visit [address] [phone] Danya You, PA 2450 [facility] [address] [address] Delicia George, PT [facility] [address] [place] [address] 03/11/2024 2:15 PM CDT Therapy Visit [address] [address] Danya You, PA 2450 [facility] [address] [address] Isabel Beaulieu OTR [address] [address] 03/11/2024 3:00 PM CDT Therapy Visit [address] [phone] Danya You PA 2450 [facility] [address] [address] Charis Chacon, [facility] [address] [place] [address] 03/11/2024 4:15 PM CDT Therapy Visit [address] [phone] Danya You, PA [address] 080[address] Delicia George, PT [facility] [address] 857[address] 03/17/2024 10:00 AM CDT Office Visit [facility] [address] [place] [phone] Denise Woodson Ra, WARD SUPERVISOR COMPACTING MACHINE OPERATOR/TENDER [address] [place], [place] 1819[address] 03/17/2024 1:30 PM CDT Therapy Visit [address] [phone] Danya You, PA [facility] [address] [address] Isabel Beaulieu, OTR [address] [address] 03/17/2024 2:30 PM CDT Therapy Visit [address] [phone] Danya You, PA 5270 [facility] [address] 896724 Charis Chacon, [facility] [address] [place] [address] 03/17/2024 4:00 PM CDT Therapy Visit [facility] [address] [place] [address] Danya You, PA [address] [phone] Vanessa Duggan, PT 03/23/2024 10:30 AM CDT Office Visit [facility] [address] [place] [address] Denise Woodson Ra, WARD SUPERVISOR COMPACTING MACHINE OPERATOR/TENDER [address] [place], [place] 9[address]8968 03/26/2024 1:30 PM CDT Therapy Visit [facility] [address] [place] [address] Danya You, PA [address] [phone] Isabel Beaulieu, OTR [facility] [address] [place] [address] 03/26/2024 2:30 PM CDT Therapy Visit [facility] [address] [place] [phone] Danya You, PA [address] 213 [address] Charis Chacon, [facility] [address] [place] [address] 03/26/2024 3:30 PM CDT Therapy Visit [facility] [address] [place] [phone] Danya You, AMAIRANI [address] [address] Delicia George, PT [address] [address] 04/02/2024 2:15 PM CDT Therapy Visit [address] [phone] Danya You, AMAIRANI [address] [address] Isabel Beaulieu, OTJah [address] [address] 04/02/2024 3:15 PM CDT Therapy Visit [address] [phone] Danya You, PA [facility] [address] [address] Charis Chacon, [facility] [address] [place] [address] 04/02/2024 4:15 PM CDT Therapy Visit [address] [phone] Danya You, PA [address] [address] Delicia George, PT [place] [address] [place] [address] 04/09/2024 3:15 PM CDT Therapy Visit [address] [address] Danya You, PA [address] [place] [address] Charis Chacon, WIRE FENCE ERECTOR [facility] [address] [place] [address] 04/09/2024 4:15 PM CDT Therapy Visit [address] [address] Danya You, PA [address] [place] [address] Delicia George, PT [facility] [address] [place] [address] 04/15/2024 9:30 AM CDT Therapy Visit [address] [phone] Danya You, PA [address] [address] Danya Restrepo, WIRE FENCE ERECTOR 04/23/2024 2:30 PM CDT Therapy Visit [address] [phone] Danya You, PA [address] [place] [address] Charis Chacon, [facility] [address] [place] [address] 05/05/2024 2:30 PM CDT Office Visit [facility] [address], [address] [place] [phone] Rohit Barcenas MD [address] [place] [phone] 06/23/2024 11:00 AM CDT Virtual Visit [facility] & Addiction [facility] [address] [place] [address] Kristin Vázquez, [facility] [address] [place] [address] 06/30/2024 2:00 PM CDT Virtual Visit [facility] [address] [place] [address] Kristin Vázquez, [facility] [address] [place] [address] documented as of this encounter Visit Diagnoses Not on filedocumented in this encounter Additional Health Concerns Assessment Noted Time PHQ-9 Depression Total Score: 0 06/23/20 21 4:11 PM CDT documented as of this encounter Care Teams Laminating Machine Operator Helper Relationship Specialty Start Date End Date Winston Villatoro OD [facility] [place] [address] [facility] [address] [place] [id number] PCP - Ophthalmology Ophthalmology 02/11/13 Denise Woodson Ra, WARD SUPERVISOR COMPACTING MACHINE OPERATOR/TENDER [address] [address] [id number] PCP - General Family Practice 09/21/20 Denise Woodson Ra, APRN COMPACTING MACHINE OPERATOR/TENDER [address] [facility] [place] [address] Assigned PCP 07/17/20 Usha Simon APRN COMPACTING MACHINE OPERATOR/TENDER 909 [facility]121[place], [place] [address] Nurse Practitioner Neurological Surgery 01/24/24 Dangelo Salinas MD [address] [facility] [address] [facility] [address] [place], [place] [id number] Neurology 01/27/24 documented as of this encounter
--- OUTSIDE RECORDS SUMMARY | 2024-02-22 15:23 | XMS_ITS | Encounter Summary ---
Author Organization [place] Address [address] [place] [address] Care Team Providers Care Nutrition Program Instructor Name Role Phone Winston Villatoro OD Unavailable [phone] Denise Woodson Ra, APRN COMMUNITY ENGAGEMENT COORDINATOR Unavailable [phone] Denise Woodson Ra, APRN COMMUNITY ENGAGEMENT COORDINATOR Primary Care Provid er Usha Simon APRN COMMUNITY ENGAGEMENT COORDINATOR Unavailable [phone] Dangelo Salinas MD Unavailable Reason for Visit * Rehab Therapy Integrated Services (Routine) - Authorized Specialty Diagnoses / Procedures Referred By Nila shah Referred To Contact Diagnoses Cerebrovascular accident (CVA), unspecified mechanism (H) [address] [address] Referral ID Status Reason Start Date Expiration Date V isits Requested Visits Authorized [id number] Authorized 09/16/2023 09/15/2024 365 365 Encounter Details Date Type Department Care Team (Late st Contact Info) Description 01/30/2024 11:00 AM CDT Therapy Visit [address] [phone] Danya You, PA [address] [place] [address] 095764 Aliya Reese, OTR [address] [place] [address] Activity of daily living alteration [...] of this encounter Progress Notes * Aliya Reese, OTR - 01/30/2024 11:00 AM CDT OCCUPATIONAL THERAPY [...] walker, tub clamp 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 Feelsher memory is improving. Working on brain activity based tasks. Pt would also like to return to driving-this is a #1 goal for her so she doesn't have to rely on others for appointments. Pain assessment: Pain denied Objective Cognitive Status Examination Defer to MEDICAL LAB TECHNOLOGIST examination/assessment. 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 PMH includes Ilzy-Danlos syndrome, mild persistent asthma, anxiety and depression, and fibromyalgia. Pt presented for planned catheter angiogram at [facility] [...] Reintegration, Self-Care/Home Management, Therapeutic Activity, Therapeutic Exercise Alf Goals OT Goal 1 Goal Identifier: community mobility Goal Description: Pt participates in community mobility assessment items to screen for functional cognition and visuo-spatial reasoning/way finding including: cognitive screen (e.g. SBT, MoCA), SDMT,BiVaba Scan Course, Tiffin Making, Dynavision (all modes), foot tap measure, [...] additional referrals indicated; pt currently beingseen by MEDICAL LAB TECHNOLOGIST and PT in addition to OT Education Assessment: Learner/Method: Patient Education Comments: Educated on role/scope of OT and POC/goals Risks and benefits of evaluation/treatment have been explained. Patient/Family/caregiver agrees with Plan of Care. Evaluation Time: Signing Clinician: JAIMIE Argueta documented in this encounter Plan of Treatment Upcoming Encounters Date Type Department Care Team (Late st Contact Info) Description 02/26/2024 1:40 PM CDT Appointment [facility] [address] [facility] [address] [place] [address] Denise Woodson Ra, STATION EXAMINER COMMUNITY ENGAGEMENT COORDINATOR [address] [place] [address] 02/26/2024 2:15 PM CDT [facility] [address] [place] [address] Danya You, PA [address] 613984 Charis Chacon, MEDICAL LAB TECHNOLOGIST [facility] [address] [place] [address] 02/26/2024 3:00 PM CDT Therapy Visit [facility] [address] [place] [address] Danya You, AMAIRANI [address] [address] Isabel Beaulieu, OTR [address] [address] 02/27/2024 4:45 PM CDT Therapy Visit [facility] [address] [place] [address] Danya You, AMAIRANI [address] [address] Vanessa Duggan, PT 03/05/2024 1:30 PM CDT Therapy Visit [facility] [address] [place] [address] Danya You PA [address] 914[address] Isabel Beaulieu, OTR [facility] 150 [facility] [place] [address] 03/05/2024 3:15 PM CDT Therapy Visit [facility] 150 [facility] [place] [address] Danya You, AMAIRANI [address] [place] [address] Charis Chacon, J[facility]AN [facility] [address] [place] [address] 03/05/2024 4:15 PM CDT Therapy Visit [address] [phone] Danya You, AMAIRANI [address] [place] [address] Delicia George, PT [facility] [address] [place] [address] 03/11/2024 2:15 PM CDT Therapy Visit [facility] [address] [place] [address] Danya You, PA [address] [place] [address] Isabel Beaulieu, OTR [facility] [address] [place] [address] 03/11/2024 3:00 PM CDT Therapy Visit [facility] [address] [place] [address] Danya You, PA [address] [place] [address] Charis Chacon, [facility] [address] [place] [address] 03/11/2024 4:15 PM CDT Therapy Visit [address] [phone] Danya You, AMAIRANI [address] [place] [address] Delicia George, PT [address] [address] 03/17/2024 10:00 AM CDT Office Visit [facility] [address] [place] [address] Denise Woodson Ra, STATION EXAMINER COMMUNITY ENGAGEMENT COORDINATOR [address] [place], [place] 6[address] 03/17/2024 1:30 PM CDT Therapy Visit [address] [phone] Danya You, AMAIRANI [address] [place] [address] Isabel Beaulieu OTR [address] [address] 03/17/2024 2:30 PM CDT Therapy Visit [address] [phone] Danya You PA [address] [address] Charis Chacon, [facility] [address] [place] [address] 03/17/2024 4:00 PM CDT Therapy Visit [address] [phone] Danya You, PA [address] [address] Vanessa Duggan, PT 03/23/2024 10:30 AM CDT Office Visit [facility] [address] [place] [phone] Denise Woodson Ra, STATION EXAMINER [facility] [address] [place], [place] [address] 03/26/2024 1:30 PM CDT Therapy Visit [address] [phone] Danya You, PA [address] [address] Isabel Beaulieu, OTR [facility] [address] [place] [address] 03/26/2024 2:30 PM CDT Therapy Visit [address] [phone] Danya You, PA [address] [address] Charis Chacon, [facility] [address] [place] [address] 03/26/2024 3:30 PM CDT Therapy Visit [facility] [address] [place] [address] Danya You PA 24[address] [facility] [address] [place] [address] Delicia George, PT [facility] [address] [address] 04/02/2024 2:15 PM CDT Therapy Visit [facility] [address] [place] [address] Danya You, AMAIRANI [address] [address] Isabel Beaulieu, JAIMIE [facility] [address] [place] [address] 04/02/2024 3:15 PM CDT Therapy Visit [facility] [address] [place] [address] Danya You, PA [address] [address] Charis Chacon SLP [facility] [address] [place] [address] 04/02/2024 4:15 PM CDT Therapy Visit [facility] [address] [place] [address] Danya You, PA [address] [address] Delicia George, PT [facility] [address] [place] [address] 04/09/2024 3:15 PM CDT Therapy Visit [address] [address] Danya You, PA [address] [address] Charis Chacon, [facility] [address] [place] [address] 04/09/2024 4:15 PM CDT Therapy Visit [address] [address] Danya You, PA [address] [address] Delicia George, PT [facility] [address] [place] [address] 04/15/2024 9:30 AM CDT Therapy Visit [address] [address] Danya You, PA [address] [address] Danya Restrepo, MEDICAL LAB TECHNOLOGIST 04/23/2024 2:30 PM CDT Therapy Visit [address] [address] Danya You, PA [address] [place] [address] Charis Chacon, [facility] [address] [place] [address] 05/05/2024 2:30 PM CDT Office Visit [facility] Ep[facility]psy Care [address], [address] [place] [address] Rohit Barcenas MD 420 [facility] [address] [place] [address] 06/23/2024 11:00 AM CDT Virtual Visit [facility] [address]01 [place] [address] Kristin Vázquez, [facility] 6[address] [place] [address] 06/30/2024 2:00 PM CDT Virtual Visit [facility] Mental Health & Addiction [facility] [address] [place] [address] Kristin Vázquez, [facility] [address] [place] [address] documented as of this encounter Visit Diagnoses Diagnosis Activity of daily living alteration- Primary Debility, unspecified Cerebrovascular accident (CVA), unspecified mechanism (H) Alteration in instrumental activities of daily living (IADL) documented in this encounter Additional Health Concerns Assessment Noted Time PHQ-9 Depression Total Score: 0 06/23/20 21 4:11 PM CDT documented as of this encounter Care Teams Nutrition Program Instructor Relationship Specialty Start Date End Date Winston Villatoro OD [facility] [place] [address] [facility] [address] [place] [address] PCP - Ophthalmology Ophthalmology 02/11/13 Denise Woodson Ra, APRN COMMUNITY ENGAGEMENT COORDINATOR [address] [address] [address] PCP - General Family Practice 09/21/20 Denise Woodson Ra, APRN COMMUNITY ENGAGEMENT COORDINATOR [address] [address] [address] Assigned PCP 07/17/20 Usha Simon APRN COMMUNITY ENGAGEMENT COORDINATOR 9 [facility], [place] [address] Nurse Practitioner Neurological Surgery 01/24/24 Dangelo Salinas MD [address] [place] [address] Neurology 01/27/24 documented as of this encounter
--- OUTSIDE RECORDS SUMMARY | 2024-02-22 15:23 | XMS_ITS | Encounter Summary ---
Author Organization [place] Address [address] [place] [address] Care Team Providers Care Survey Statistician Name Role Phone Winston Villatroo OD Unavailable [phone] Denise Woodson Ra, APRN UX MANAGER Unavailable [phone]- [phone] Denise Woodson Ra EXECUTIVE COMMUNITY PLANNING UX MANAGER Primary Care Provid er Usha Simon APRN UX MANAGER Unavailable [phone] Dangelo Salinas MD Unavailable Usha Simon EXECUTIVE COMMUNITY PLANNING UX MANAGER Unavailable [phone] Anastasia Stearns RN Unavailable [phone] Germaine Lopez CHW Unavailable [phone] Encounter Details Date Type Department Care Team (Late st Contact Info) Description 01/29/2024 [facility] Medical Advice [address] [address] Danya Restrepo, COMPOSITION TEACHER Social History Tobacco Use Types Packs/Day Years [...] Info) Description 02/26/2024 1:40 PM CDT Appointment [facility] Imaging [address] [place] [phone] Denise Woodson Ra, EXECUTIVE COMMUNITY PLANNING UX MANAGER [address] [place] [address] 02/26/2024 2:15 PM CDT Therapy Visit [facility] [address] [place] [phone] Danya You PA [address] MB [address] [place] [address] 284174 Charis Chacon, [facility] [address] [place] [address] 02/26/2024 3:00 PM CDT Therapy Visit [facility] [address] [place] [address] Danya You PA [address] [place], [place] [address] Isabel Beaulieu, OTJah [facility] [address] [place] [address] 02/27/2024 4:45 PM CDT Therapy Visit [facility] [address] [place] [phone] Danya You PA [address] [place], [place] [address] Vanessa Duggan, PT 03/05/2024 1:30 PM CDT Therapy Visit [facility] [address] [place] [phone] Danya You PA [address] [place] [address] [id number] Isabel Beaulieu, OTR [facility] [address] [place] [address] 03/05/2024 3:15 PM CDT Therapy Visit [facility] [address] [place] [phone] Danya You, AMAIRANI 2450 [facility] JIE [address] [phone] Charis Chacon, [facility]AB [address] [place] [address] 03/05/2024 4:15 PM CDT [facility] [address] [place] [address] Danya You, AMAIRANI [address] [address] Delicia George, PT [facility] [address] [place] [address] 03/11/2024 2:15 PM CDT Therapy Visit [facility] [address] [place] [phone] Danya You, AMAIRANI 2450 [facility] JIE SOTO [address] [place] [address] Isabel Beaulieu OTR [facility] [address] [place] [address] 03/11/2024 3:00 PM CDT Therapy Visit [facility] [address] [place] [address] Danya You, PA [address] [address] Charis Chacon [facility]LP [facility] [address] [place] [address] 03/11/2024 4:15 PM CDT Therapy Visit [address] [phone] Danya You, PA [address] 744084 Delicia George, PT [facility] [address] [place] [address] 03/17/2024 10:00 AM CDT Office Visit [facility] [place] [facility] [address] [place] [address] Denise Woodson Ra, EXECUTIVE COMMUNITY PLANNING [facility] [address] [place], [place] 12[address] 03/17/2024 1:30 PM CDT Therapy Visit [address] [phone] Danya You, AMAIRANI [facility] [address] [address] Isabel Beaulieu, OTJah [facility] [address] [place] [address] 03/17/2024 2:30 PM CDT Therapy Visit [facility] [address] [place] [phone] Danya You, PA 2450 [facility] [address] [place] [address] Charis Chacon, [facility] [address] [place] [address] 03/17/2024 4:00 PM CDT Therapy Visit [address] [phone] Danya You, PA 2020 [facility] [address] [place], [place] 4625[address] Vanessa Duggan, PT 03/23/2024 10:30 AM CDT Office Visit [facility] [place] [facility] [address] [place] [address] Denise Woodson Ra, EXECUTIVE COMMUNITY PLANNING UX MANAGER [address] [place], [place] 85257[address] 03/26/2024 1:30 PM CDT Therapy Visit [address] [phone] Danya You, PA 3470 [facility] [address] [place], [place] 580[address] Isabel Beaulieu OTR [facility] [address] [place] [address] 03/26/2024 2:30 PM CDT Therapy Visit [address] [phone] Danya You PA [address] [place] [address] Charis Chacon SLP [facility] [address] [place] [address] 03/26/2024 3:30 PM CDT Therapy Visit [facility] [address] [place] [address] Danya You, PA [address] [place] [address] Delicia George, PT [facility] [address] [address] 04/02/2024 2:15 PM CDT Therapy Visit [facility] [address] [place] [address] Danya You, PA [address] [place] [address] Isabel Beaulieu, OTR [facility] [address] [place] [address] 04/02/2024 3:15 PM CDT Therapy Visit [facility] [address] [place] [address] Danya You, AMAIRANI [address] [place] [address] Charis Chacon, [facility] [address] [place] [address] 04/02/2024 4:15 PM CDT Therapy Visit [address] [phone] Danya You PA [address] [address] Delicia George, PT [address] [address] 04/09/2024 3:15 PM CDT Therapy Visit [address] [address] Danya You, AMAIRANI [facility] [address] [address] Charis Chacon, COMPOSITION TEACHER [facility] [address] [place] [address] 04/09/2024 4:15 PM CDT Therapy Visit [address] [phone] Danya You, PA [facility] [address] [address] Delicia George, PT [address] [address] 04/15/2024 9:30 AM CDT Therapy Visit [address] [address] Danya You, PA [address] [address] Danya Restrepo, COMPOSITION TEACHER 04/23/2024 2:30 PM CDT Therapy Visit [facility] [address] [place] [address] Danya You, PA 2450 [facility] [address] [place] [address] Charis Chacon, [facility] [address] [place] [address] 05/05/2024 2:30 PM CDT Office Visit [facility] Epile[facility] [address], [address] [place] [phone] Rohit Barcenas MD 420 [facility] [address] [place], [place] [address] 06/23/2024 11:00 AM CDT Virtual Visit [facility] [place] [address] [place] [address] Kristin Vázquez, [facility] [address] [place] [phone] 06/30/2024 2:00 PM CDT Virtual Visit [facility] 6401 [place] [address] Kristin Vázquez, [facility] 4941 [place] [address] documented as of this encounter Visit Diagnoses Not on filedocumented in this encounter Additional Health Concerns Assessment Noted Time PHQ-9 Depression Total Score: 0 06/23/20 21 4:11 PM CDT documented as of this encounter Care Teams Survey Statistician Relationship Specialty Start Date End Date Winston Villatoro OD [facility] [address] [place] [address] PCP - Ophthalmology Ophthalmology 02/11/13 Denise Woodson Ra, APRN UX MANAGER [address] [place] [address] PCP - General Family Practice 09/21/20 Denise Woodson Ra, EXECUTIVE COMMUNITY PLANNING UX MANAGER [address] [address] [place] [address] Assigned PCP 07/17/20 Usha Simon APRN UX MANAGER 909 [facility] [id number] [place], [place] 354[address] Nurse Practitioner Neurological Surgery 01/24/24 Dangelo Salinas MD [address] [place] [address] Neurology 01/27/24 Usha Simon APRN UX MANAGER 909 [facility] [id number] [place], [place] 401[address] Assigned Neuroscience Provider 02/06/24 Anastasia Stearns, RN Lead Facility Service Associate 02/06/24 Germaine Lopez, CHW Community Health Worker Primary Care - CC 02/18/24 documented as of this encounter
--- OUTSIDE RECORDS SUMMARY | 2024-02-22 15:24 | XMS_ITS | Encounter Summary ---
Author Organization [place] Address [address] [place] [address]. [place] [address] Care Team Providers Care Cane Furniture Maker Name Role Phone Winston Villatoro Se OD Unavailable [phone] Denise Woodson Ra, APRN LABORATORY CHEMIST Unavailable [phone]- [phone] Denise Woodson Ra, APRN LABORATORY CHEMIST Primary Care Provid er Usha Simon APRN LABORATORY CHEMIST Unavailable + [phone] Dangelo Salinas MD Unavailable Encounter Details Date [...] CDT Appointment [facility] Imaging [address] [facility] [address] [place] [address] Denise Woodson Ra MAIL MESSENGER CONTRACTOR LABORATORY CHEMIST [address] [place] [address] 02/26/2024 2:15 PM CDT Therapy Visit [facility] 150 [place] [address] Danya You, PA [address] [place] [address] Charis Chacon, [facility] [address] [place] [address] 02/26/2024 3:00 PM CDT Therapy Visit [address] [phone] Danya You, AMAIRANI [address] [place], [place] 483564 Isabel Beaulieu OTR [facility]V [address] [address] 02/27/2024 4:45 PM CDT Therapy Visit [address] [phone] Danya You, PA 2450 [facility] 213 [place], [place] 0726[address] Vanessa Duggan, PT 03/05/2024 1:30 PM CDT Therapy Visit [address] [phone] Danya You, AMAIRANI [address] [facility] [address] [place] [address] Isabel Beaulieu OTR [address] [address] 03/05/2024 3:15 PM CDT Therapy Visit [address] [phone] Danya You, AMAIRANI 2450 [facility] [address] [address] Charis Chacon SLP [facility] [address] [place] [address] 03/05/2024 4:15 PM CDT Therapy Visit [address] [phone] Danya You, PA 2450 [facility] [address] [address] Delicia George, PT [facility] [address] [place] [address] 03/11/2024 2:15 PM CDT Therapy Visit [address] [phone] Danya You, PA 2450 [facility] [address] [address] Isabel Beaulieu OTR [address] [address] 03/11/2024 3:00 PM CDT Therapy Visit [address] [phone] Danya You PA 2450 [facility] [address] [address] Charis Chacon, [facility] [address] [place] [address] 03/11/2024 4:15 PM CDT Therapy Visit [address] [phone] Danya You, PA [address] [address] Delicia George, PT [facility] [address] [address] 03/17/2024 10:00 AM CDT Office Visit [facility] [address] [place] [phone] Denise Woodson Ra, MAIL MESSENGER CONTRACTOR LABORATORY CHEMIST [address] [place], [place] 60138[address] 03/17/2024 1:30 PM CDT Therapy Visit [address] [phone] Danya You, PA [facility] [address] [address] Isabel Beaulieu, OTR [address] [address] 03/17/2024 2:30 PM CDT Therapy Visit [address] [phone] Danya You, PA 4890 [facility] [address] [address] Charis Chacon, [facility] [address] [place] [address] 03/17/2024 4:00 PM CDT Therapy Visit [facility] 150 [place] [address] Danya You, PA [address] [place], [place] [address] Vanessa Duggan, PT 03/23/2024 10:30 AM CDT Office Visit [facility] [address] [place] [address] Denise Woodson Ra, MAIL MESSENGER CONTRACTOR LABORATORY CHEMIST [address] [place], [place] [address] 03/26/2024 1:30 PM CDT Therapy Visit [facility] [address] [place] [address] Danya You, PA [address] [place], [place] 8[address] Isabel Beaulieu, OTR [facility] 150 [place] [address] 03/26/2024 2:30 PM CDT Therapy Visit [facility] [address] [place] [phone] Danya You, PA [address] [place] [address] Charis Chacon, [facility] [address] [place] [address] 03/26/2024 3:30 PM CDT Therapy Visit [facility] [address] [place] [address] Danya You, AMAIRANI [address] [address] Delicia George, PT [address] [address] 04/02/2024 2:15 PM CDT Therapy Visit [address] [phone] Danya You, AMAIRANI [address] [address] Isabel Beaulieu, OTJah [address] [address] 04/02/2024 3:15 PM CDT Therapy Visit [address] [phone] Danya You, PA [facility] [address] [address] Charis Chacon, [facility] [address] [place] [address] 04/02/2024 4:15 PM CDT Therapy Visit [address] [phone] Danya You, PA [address] [address] Delicia George, PT [place] [address] [place] [address] 04/09/2024 3:15 PM CDT Therapy Visit [address] [address] Danya You, PA [address] [place] [address] Charis Chacon, COCOA PRESS OPERATOR [facility] [address] [place] [address] 04/09/2024 4:15 PM CDT Therapy Visit [address] [phone] Danya You, PA [address] [place] [address] Delicia George, PT [facility] [address] [place] [address] 04/15/2024 9:30 AM CDT Therapy Visit [address] [phone] Danya You, PA [address] [address] Danya Restrepo, COCOA PRESS OPERATOR 04/23/2024 2:30 PM CDT Therapy Visit [address] [phone] Danya You, PA [address] [place] [address] Charis Chacon, [facility] [address] [place] [address] 05/05/2024 2:30 PM CDT Office Visit [facility] [address], [address] [place] [phone] Rohit Barcenas MD [address] [place] [address] 295 [place], [place] [address] 06/23/2024 11:00 AM CDT Virtual Visit [facility] Mental Health & Addiction [facility] [address] [place] [address] Kristin Vázquez, [facility] [address] [place] [phone] 06/30/2024 2:00 PM CDT Virtual Visit [facility] [address] [place] [address] Kristin Vázquez, [facility] [address] [place] [address] documented as of this encounter Visit Diagnoses Not on filedocumented in this encounter Additional Health Concerns Assessment Noted Time PHQ-9 Depression Total Score: 0 06/23/20 21 4:11 PM CDT documented as of this encounter Care Teams Cane Furniture Maker Relationship Specialty Start Date End Date Winston Villatoro OD [facility] [place] 701 [facility] [address] [place] [id number] PCP - Ophthalmology Ophthalmology 02/11/13 Denise Woodson Ra, MAIL MESSENGER CONTRACTOR LABORATORY CHEMIST [address] [address] [id number] PCP - General Family Practice 09/21/20 Denise Woodson Ra, APRN LABORATORY CHEMIST [address] [facility] [place] [address] Assigned PCP 07/17/20 Usha Simon APRN LABORATORY CHEMIST 909 [facility]2121[place], [place] [address] Nurse Practitioner Neurological Surgery 01/24/24 Dangelo Salinas MD [address] [facility] AVE [facility] 200 [place], [place] [id number] Neurology 01/27/24 documented as of this encounter
--- OUTSIDE RECORDS SUMMARY | 2024-02-22 15:24 | XMS_ITS | Encounter Summary ---
Author Organization [facility] Address [address] [place] [address]. [place] [address] Care Team Providers Care Back Stayer Name Role Phone Winston Villatoro Se OD Unavailable [phone] Denise Woodson Ra, APRN TUMBLER MACHINE OPERATOR Unavailable +- [phone] Denise Woodson Ra, APRN TUMBLER MACHINE OPERATOR Primary Care Provid er Usha Simon TALENT DEVELOPMENT ANALYST TUMBLER MACHINE OPERATOR Unavailable [phone]- [phone] Encounter Details Date Type Department Care Team [...] Appointment [facility] [facility] [address] [facility] [address] [place] [address] Denise Woodson Ra TALENT DEVELOPMENT ANALYST TUMBLER MACHINE OPERATOR [address] [place] [address] 02/26/2024 2:15 PM CDT Therapy Visit [facility] [address] [place] [address] Danya You PA [address] [address] Charis Chacon, [facility] [address] [place] [address] 02/26/2024 3:00 PM CDT Therapy Visit [facility] 150 [place] [address] Danya You PA 2450 [facility] 213 [place] [address] Isabel Beaulieu OTR [address] [address] 02/27/2024 4:45 PM CDT Therapy Visit [facility] 150 [place] [address] Danya You, AMAIRANI [address] [address] Vanessa Duggan, PT 03/05/2024 1:30 PM CDT Therapy Visit [facility] [address] [place] [address] Danya You PA [address] [address] Isabel Beaulieu OTR [facility] 150 [place] [address] 03/05/2024 3:15 PM CDT Therapy Visit [facility] 150 [place] [address] Danya You PA [address] [address] Charis Chacon, JUAN [facility] [address] [place] [address] 03/05/2024 4:15 PM CDT Therapy Visit [address] [phone] Danya You, AMAIRANI [address] [address] Delicia George, PT [facility] [address] [place] [address] 03/11/2024 2:15 PM CDT Therapy Visit [address] [phone] Danya You, PA [address] [address] Isabel Beaulieu, OTJah [address] [address] 03/11/2024 3:00 PM CDT Therapy Visit [address] [phone] Danya You PA [address] [address] Charis Chacon, JAUN [facility] [address] [place] [address] 03/11/2024 4:15 PM CDT Therapy Visit [address] [phone] Danya You, PA 2450 [facility] 213 [place], [place] [address] Delicia George, PT [facility] [address] [address] 03/17/2024 10:00 AM CDT Office Visit [facility] [address] [place] [phone] Denise Woodson Ra, TALENT DEVELOPMENT ANALYST [facility] [address] [place], [place] [address] 03/17/2024 1:30 PM CDT Therapy Visit [address] [phone] Danya You, PA [address] [address] Isabel Beaulieu OTR [address] [address] 03/17/2024 2:30 PM CDT Therapy Visit [address] [phone] Danya You, PA 5430 [facility] 213 [place] [address] Charis Chacon SLP [facility] [address] [place] [address] 03/17/2024 4:00 PM CDT Therapy Visit [address] [address] Danya You, PA [address] [place] [address] Vanessa Duggan, PT 03/23/2024 10:30 AM CDT Office Visit [facility] [address] [place] [phone] Denise Woodson Ra, TALENT DEVELOPMENT ANALYST [facility] [address] [place], [place] [address] 03/26/2024 1:30 PM CDT Therapy Visit [address] [address] Danya You, PA 2840 [facility] [address] [place] [address] Isabel Beaulieu, [address] [address] 03/26/2024 2:30 PM CDT Therapy Visit [address] [phone] Danya You, PA 2450 [facility] [address] [place] [address] Charis Chacon, JUAN [facility] [address] [place] [address] 03/26/2024 3:30 PM CDT Therapy Visit [address] [place] [address] Danya You, AMAIRANI 24[address] [place] [address] Delicia George, PT [address] [address] 04/02/2024 2:15 PM CDT Therapy Visit [facility] 150 [place] [phone] Danya You, AMAIRANI 2450 [address] [place] [address] Isabel Beaulieu, JA[facility]IE [facility] 150 [place] [address] 04/02/2024 3:15 PM CDT Therapy Visit [facility] 150 [place] [address] Danya You, PA [address] [address] Charis Chacon, ANIMATION CAMERA OPERATOR [facility] [address] [place] [address] 04/02/2024 4:15 PM CDT Therapy Visit [facility] 150 [place] [address] Danya You, PA [address]50 [address] [address] Delicia George, PT [facility] [address] [place] [phone] 04/09/2024 3:15 PM CDT Therapy Visit [address] [address] Danya You, PA [address] [address] Charis Chacon, JUAN [facility] [address] [place] [address] 04/09/2024 4:15 PM CDT Therapy Visit [address] [address] Danya You, PA [address] [address] Delicia George, PT [facility] [address] [place] [address] 04/15/2024 9:30 AM CDT Therapy Visit [address] [phone] Danya You PA [address] [address] Danya Restrepo SLP 04/23/2024 2:30 PM CDT Therapy Visit [address] [phone] Danya You, PA [address] [address] Charis Chacon, JUAN [facility] [address] [place] [address] 05/05/2024 2:30 PM CDT Office Visit [facility] [address], [address] [place] [phone] Rohit Barcenas MD 420 [facility] 295 [place], [place] [address] 06/23/2024 11:00 AM CDT Virtual Visit [facility] Mental Health & Addiction [facility] [address] [place] [address] Kristin Vázquez, [facility] 6[address] [place] [address] 06/30/2024 2:00 PM CDT Virtual Visit [facility] [address] [place] [address] Kristin Vázquez, [facility] 6[address] [place] [address] documented as of this encounter Visit Diagnoses Not on filedocumented in this encounter Additional Health Concerns Assessment Noted Time PHQ-9 Depression Total Score: 0 06/23/20 4:11 PM CDT documented as of this encounter Care Teams Back Stayer Relationship Specialty Start Date End Date Winston Villatoro OD [facility] [place] [address] [place] [address] PCP - Ophthalmology Ophthalmology 02/11/13 Denise Woodson Ra, TALENT DEVELOPMENT ANALYST TUMBLER MACHINE OPERATOR [address] [address] [address] PCP - General Family Practice 09/21/20 Denise Woodson Ra, APRN TUMBLER MACHINE OPERATOR [address] [place] [address] Assigned PCP 07/17/20 Usha Simon APRN TUMBLER MACHINE OPERATOR [address] [facility] [id number] [place] [address] Nurse Practitioner Neurological Surgery 01/24/24 documented as of this encounter
--- OUTSIDE RECORDS SUMMARY | 2024-02-22 15:24 | XMS_ITS | Encounter Summary ---
Author Organization [facility] Address [address] [place] [address]. [place] [address] Care Team Providers Care Software Quality Engineer Name Role Phone Winston Villatoro OD Unavailable [phone] Denise Woodson Ra, APRN STIFF LEG DERRICK OPERATOR Unavailable [phone] Denise Woodson Ra, APRN, CNP Primary Care Provid er Reason for Referral * Consultation (Routine: Next available opening) - Pending Review Specialty Diagnoses / Procedures Referred By Nila shah Referred To Contact Neurological Surgery Diagnoses Dural arteriovenous fistula Jeevan Sheth MD [address] [place] [address] Referral ID Status Reason Start Date Expiration Date V isits Requested Visits Authorized [id number] Pending Review 01/23/2024 01/22/2025 1 1 Question Answer Reason for Referral: Cerebrovascular Scheduling Instructions: [employer] will call you to coordinate your care as prescribed by your provider. If you don't hear from a parts representative within 2 business days, please call . 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 X-rays, CTs, MRIs, and other imaging must be pushed electronically to the [employer] system. Please be aware that coverage of these services is subject to the terms and limitations of your health insurance plan. Call member services at your health plan with any benefit or coverage questions. [employer] will call you to coordinate your care as prescribed by your provider. If you don't hear from a parts representative within 2 business days, please call . Encounter Details Date Type Department Care Team (Late st Contact Info) Description 01/23/2024 Orders Only [place] [address] [address] [address] [place] [address] Delisa Manuel MD 420 [place] [address] Dural arteriovenous fistula (Primary Dx) [...] Description 02/26/2024 1:[address] [facility] [address] [facility] [address] [place] [address] Denise Woodson Ra, APPRENTICE STYLIST STIFF LEG DERRICK OPERATOR [address] [place] [address] 02/26/2024 2:15 PM CDT Therapy [facility] 150 [place] [phone] Danya You, AMAIRANI [facility]0 [facility] [address] [place] [address] Charis Chacon, JUAN [facility] [address] [place] [address] 02/26/2024 3:00 PM CDT Therapy [facility] 150 [facility] [place] [address] Danya You, AMAIRANI 2450 [facility] 213 [place] [address] Isabel Beaulieu, OTR [facility] 150 [place] [address] 02/27/2024 4:45 PM CDT Therapy [facility] [address] [place] [address] Danya You, PA 2450 [facility] [address] [place] [address] Vanessa Duggan, PT 03/05/2024 1:30 PM CDT Therapy Visit [facility] [address] [place] [address] Danya You, AMAIRANI [facility] [address] [address] Isabel Beaulieu, OTR [facility] 150 [place] [address] 03/05/2024 3:15 PM CDT Therapy Visit [facility] [address] [place] [address] Danya You, PA 2450 [facility] [address] [place] [address] Charis Chacon, JUAN [facility] [address] [place] [address] 03/05/2024 4:15 PM CDT Therapy [facility] [address] [place] [address] Danya You, AMAIRANI [address] [address] Delicia George, PT [address] [address] 03/11/2024 2:15 PM CDT Therapy Visit [address] [phone] Danya You, PA [address] [address] Isabel Beaulieu, OTJah [address] [address] 03/11/2024 3:00 PM CDT Therapy Visit [address] [phone] Danya You, PA [facility] [place] [address] [address] Charis Chacon, PRESCHOOL SUBSTITUTE TEACHER [facility] [address] [place] [address] 03/11/2024 4:15 PM CDT Therapy Visit [address] [phone] Danya You, PA [address] [address] Delicia George, PT [facility] 909 [place] [address] 03/17/2024 10:00 AM CDT Office Visit [facility] [address] [place] [phone] Denise Woodson Ra, APPRENTICE STYLIST STIFF LEG DERRICK OPERATOR [address] [place], [place] [address] 03/17/2024 1:30 PM CDT Therapy Visit [address] [phone] Danya You, PA [address] [address] Isabel Beaulieu OTR [address] [address] 03/17/2024 2:30 PM CDT Therapy Visit [address] [phone] Danya You, PA [address] [address] Charis Chacon, JUAN [facility] [address] [place] [address] 03/17/2024 4:00 PM CDT Therapy Visit [address] [phone] Danya You, PA [address] [address] Vanessa Duggan, PT 03/23/2024 10:30 AM CDT Office Visit [facility] [address] [place] [address] Denise Woodson Ra, BARRERA HUBBARD [address] [place] [address] 03/26/2024 1:30 PM CDT Therapy Visit [address] [address] Danya You, PA [address] [address] Isabel Beaulieu OTJah [address] [address] 03/26/2024 2:30 PM CDT Therapy Visit [address] [address] Danya You, PA 8900 [facility] [address] [address] Charis Chacon, J[facility]AN [facility] [address] [place] [address] 03/26/2024 3:30 PM CDT Therapy Visit [address] [address] Danya You, PA [address] [address] Delicia George, PT [facility] [address] [place] [address] 04/02/2024 2:15 PM CDT Therapy Visit [address] [phone] Danya You, AMAIRANI 2450 [facility] [address] [address] Isabel Beaulieu, OTR [address] [address] 04/02/2024 3:15 PM CDT Therapy Visit [address] [phone] Danya You, AMAIRANI [facility] [address] [address] Charis Chacon, J[facility] [address] [place] [address] 04/02/2024 4:15 PM CDT Therapy Visit [address] [phone] Danya You, AMAIRANI [facility] [address] [address] Delicia George, PT [facility] [address] [place] [address] 04/09/2024 3:15 PM CDT Therapy Visit [address] [phone] Danya You PA [facility] [address] [address] Charis Chacon, [facility] [address] [place] [address] 04/09/2024 4:15 PM CDT Therapy Visit [address] [address] Danya You, PA [address] [address] Delicia George, PT [facility] [address] [address] 04/15/2024 9:30 AM CDT Therapy Visit [address] [address] Danya You, PA [address] [address] Danya Restrepo, JUAN 04/23/2024 2:30 PM CDT Therapy Visit [address] [address] Danya You, PA [address] [place] [address] Charis Chacon, JUAN [facility] [address] [place] [address] 05/05/2024 2:30 PM CDT Office Visit [facility] [address], [address] [place] [phone] Rohit Barcenas MD [address] [place] [address] [address] [place] [address] 06/23/2024 11:00 AM CDT Virtual Visit [facility] Addiction [facility] 6401 [facility] [address] Kristin Vázquez, [facility] [address] [place] [address] 06/30/2024 2:00 PM CDT Virtual Visit [facility] [address] [facility] [place] [address] Kristin Vázquez, [facility] 6341 [facility] [place] [address] Scheduled Referrals Name Type Priority Associated Diagnoses Orde r Schedule Adult Neurosurgery Boat Loader Helper Referral Referral Routine: Next available opening Dural arteriovenous fistula Expected: 01/23/2024 (Approximate), Expires: 01/22/2025 documented as of this encounter Visit Diagnoses Diagnosis Dural arteriovenous fistula- Primary Cerebral aneurysm, nonruptured documented in this encounter Additional Health Concerns Assessment Noted Time PHQ-9 Depression Total Score: 0 06/23/20 21 4:11 PM CDT documented as of this encounter Care Teams Software Quality Engineer Relationship Specialty Start Date End Date Winston Villatoro, OD [facility] [place] [address] [place] [address] PCP - Ophthalmology Ophthalmology 02/11/13 Denise Woodson Ra, APPRENTICE STYLIST STIFF LEG DERRICK OPERATOR [address] [address] [address] PCP - General Family Practice 09/21/20 Denise Woodson Ra, APRN STIFF LEG DERRICK OPERATOR [address] [address] [address] Assigned PCP 07/17/20 documented as of this encounter
--- OUTSIDE RECORDS SUMMARY | 2024-02-22 15:24 | XMS_ITS | Encounter Summary ---
Author Organization [facility] Address [address] [place] [address] Care Team Providers Care Cullet Trucker Name Role Phone Winston Villatoro OD Unavailable [phone] Denise Woodson Ra, APRN LIPCOAT SPRAYER Unavailable [phone]- [phone] Denise Woodson Ra MAINTENANCE CRAFTSMAN LIPCOAT SPRAYER Primary Care Provid er Usha Simon APRN LIPCOAT SPRAYER Unavailable [phone]- [phone] Dangelo Salinas MD Unavailable Usha Simon APRN LIPCOAT SPRAYER Unavailable [phone]- [phone] Anastasia Stearns RN Unavailable [phone] Germaine Lopez CHW Unavailable [phone] Encounter Details Date Type Department Care Team (Late st Contact Info) Description 01/27/2024 [facility] [address] 3rd [place] [address] [facility] Social History Tobacco Use Types Packs/Day Years [...] Info) Description 02/26/2024 1:40 PM CDT Appointment [facility] Imaging [address] [place] [phone] Denise Woodson Ra, MAINTENANCE CRAFTSMAN LIPCOAT SPRAYER [address] [place] [address] 02/26/2024 2:15 PM CDT Therapy Visit [facility] 150 [place] [phone] Danya You PA [address] [place] [address] Charis Chacon, J[facility]AN [facility] [address] [place] [address] 02/26/2024 3:00 PM CDT Therapy Visit [facility] 150 [place] [phone] Danya You PA [address] [place], [place] 9914[address] Isabel Beaulieu, OTJah [facility] 150 [place] [address] 02/27/2024 4:45 PM CDT Therapy Visit [facility] 150 [place] [phone] Danya You PA [address] [place], [place] 0[address]14 Vanessa Duggan, PT 03/05/2024 1:30 PM CDT Therapy Visit [facility] 150 [facility] [place] [phone] Danya You PA [address] [place] [address]394 Isabel Beaulieu, OTR [facility] 150 [place] [address] 03/05/2024 3:15 PM CDT Therapy Visit [facility] 150 [place] [address] Danya You, AMAIRANI [address] 533[address] Charis Chacon, [facility] [address] [place] [address] 03/05/2024 4:15 PM CDT Therapy Visit [facility] 150 [place] [address] Danya You, PA [address] [address] Delicia George, PT [facility] [address] [place] [address] 03/11/2024 2:15 PM CDT Therapy Visit [facility] 150 [place] [phone] Danya You, AMAIRANI [facility] [address] [address] Isabel Beaulieu OTR [facility] 150 [place] [address] 03/11/2024 3:00 PM CDT Therapy Visit [facility] 150 [place] [phone] Danya You, PA [address] [address] Charis Chacon, [facility] [address] [place] [address] 03/11/2024 4:15 PM CDT Therapy Visit [address] [phone] Danya You, PA [address] 541304 Delicia George, PT [facility] [address] [place] [address] 03/17/2024 10:00 AM CDT Office Visit [facility] [address] [place] [address] Denise Woodson Ra, MAINTENANCE CRAFTSMAN [facility] [address] [place], [place] 22494[address] 03/17/2024 1:30 PM CDT Therapy Visit [address] [phone] Danya You, AMAIRANI 5060 [facility] [address] [address] Isabel Beaulieu, OTR [facility] 150 [place] [address] 03/17/2024 2:30 PM CDT Therapy Visit [facility] 150 [place] [address] Danya You, PA [address] [facility] 213 [place] [address] Charis Chacon, [facility] [address] [place] [address] 03/17/2024 4:00 PM CDT Therapy Visit [address] [phone] Danya You, PA [address] [facility] 213 [place], [place] 615[address] Vanessa Duggan, PT 03/23/2024 10:30 AM CDT Office Visit [facility] [address] [place] [address] Denise Woodson Ra, MAINTENANCE CRAFTSMAN LIPCOAT SPRAYER [address] [place], [place] 0444[address] 03/26/2024 1:30 PM CDT Therapy Visit [address] [phone] Danya You, PA [address] [facility] 213 [place] [address] Isabel Beaulieu, OTJah [address] [address] 03/26/2024 2:30 PM CDT Therapy Visit [address] [phone] Danya You PA [address] [place] [address] Charis Chacon SLP [facility] [address] [place] [address] 03/26/2024 3:30 PM CDT Therapy Visit [facility] 150 [place] [address] Danya You, AMAIRANI [address] [place] [address] Delicia George, PT [facility] [address] [address] 04/02/2024 2:15 PM CDT Therapy Visit [facility] 150 [place] [phone] Danya You, AMAIRANI [address] [place] [address] Isabel Beaulieu, OTR [facility] 150 [place] [address] 04/02/2024 3:15 PM CDT Therapy Visit [facility] 150 [place] [address] Danya You, AMAIRANI [address] [place] [address] Charis Chacon, [facility] [address] [place] [address] 04/02/2024 4:15 PM CDT Therapy Visit [address] [phone] Danya You PA [address] [place] [address] Delicia George, PT [address] [address] 04/09/2024 3:15 PM CDT Therapy Visit [address] [phone] Danya You PA [address] [address] Charis Chacon, GEOGRAPHIC ANALYST [facility] [address] [place] [address] 04/09/2024 4:15 PM CDT Therapy Visit [address] [address] Danya You, PA [facility] [address] [address] Delicia George, PT [address] [address] 04/15/2024 9:30 AM CDT Therapy Visit [address] [address] Danya You, PA [address] [place] [address] Danya Restrepo, GEOGRAPHIC ANALYST 04/23/2024 2:30 PM CDT Therapy Visit [facility] 150 [place] [address] Danya You, PA [address] [place] [address] Charis Chacon, [facility] [address] [place] [address] 05/05/2024 2:30 PM CDT Office Visit [facility] [address], [address] [place] [phone] Roiht Barcenas MD 420 [facility] 295 [place], [place] [address]205 06/23/2024 11:00 AM CDT Virtual Visit [facility] [place] [facility] [place] 5[address]11 [place] [address] Kristin Vázquez, [facility] [address] [place] [phone] 06/30/2024 2:00 PM CDT Virtual Visit [facility] 6401 [place] [address] Kristin Vázquez, [facility] 1441 [place] [address] documented as of this encounter Visit Diagnoses Not on filedocumented in this encounter Additional Health Concerns Assessment Noted Time PHQ-9 Depression Total Score: 0 06/23/20 21 4:11 PM CDT documented as of this encounter Care Teams Cullet Trucker Relationship Specialty Start Date End Date Winston Villatoro OD [facility] [place] [address] [place] [address] PCP - Ophthalmology Ophthalmology 02/11/13 Denise Woodson Ra, APRN LIPCOAT SPRAYER [address] [place] [address] PCP - General Family Practice 09/21/20 Denise Woodson Ra MAINTENANCE CRAFTSMAN LIPCOAT SPRAYER [address] [place] [address] Assigned PCP 07/17/20 Usha Simon APRN LIPCOAT SPRAYER 909 [facility] [id number] [place], [place] [address] Nurse Practitioner Neurological Surgery 01/24/24 Dangelo Salinas MD [address] [place], [place] [phone] Neurology 01/27/24 Usha Simon APRN LIPCOAT SPRAYER 909 [facility] [id number] [place], [place] 3284[address] Assigned Neuroscience Provider 02/06/24 Anastasia Stearns, RN Lead Chrome Tanning Drum Operator 02/06/24 Germaine Lopez, CHW Community Health Worker Primary Care - CC 02/18/24 documented as of this encounter
--- OUTSIDE RECORDS SUMMARY | 2024-02-22 15:24 | XMS_ITS | Encounter Summary ---
Author Organization [facility] Address [address] [place] [address]. [place] [address] Care Team Providers Care Car Wash Attendant Automatic Name Role Phone Winston Villatoro OD Unavailable [phone] Denise Woodson Ra, APRN PECAN HULLER Unavailable [phone] Denise Woodson Ra, APRN PECAN HULLER Primary Care Provid er Usha Simon APRN PECAN HULLER Unavailable [phone] Dangelo Salinas MD Unavailable Reason for Visit * Rehab Therapy Integrated Services (Routine) - Authorized Specialty Diagnoses / Procedures Referred By Nila shah Referred To Contact Diagnoses Cerebrovascular accident (CVA), unspecified mechanism (H) [address] [address] Referral ID Status Reason Start Date Expiration Date V isits Requested Visits Authorized [id number] Authorized 09/16/2023 09/15/2024 365 365 Encounter Details Date Type Department Care Team (Latest Contact Info) Description 01/28/2024 1:15 PM CDT Therapy Visit [address] [phone] Danya You, PA [address] [place] [address] 954014 Delicia George, PT [facility] [address] [place] [address] Cerebrovascular accident (CVA), unspecified mechanism (H) Social [...] in this encounter Progress Notes * Delicia George PT - 01/28/2024 1:15 PM CDT PHYSICAL THERAPY EVALUATION Type of Visit: Evaluation See electronic medical record for Abuse and Falls Screening details. 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 She had a seizure like activity and went to [facility] for a few days. Discharged in sett ing of acute mental status change, concern for seizure, workup felt not consistent with seizure, episodes felt related to fatigue/stress. Functionally making progress with ongoing strength, balance, activity tolerance, and cognition below baseline, plan for home with outpatient PT/OT/EXTERMINATOR. ARU from01/21- 01/26/24 before discharging home. 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 Acute rehab order for return to work [...] best Objective Cognitive Status Examination See OT/ST eval OBSERVATION: Several rest breaks due to eye [...] self care tasks, work tasks, recreational activities, breaker off, driving , household mobility, and community mobility as compared to previous level of function. Clinical Decision Making (Complexity): Clinical Presentation: Evolving/Changing Clinical Presentation Rationale: based on medical and personal factors listed in PT evaluation Clinical Decision Making (Complexity): Moderate complexity PLAN OF CARE Treatment Interventions: Interventions: Gait Training, Manual Therapy, Neuromuscular Re-education, Therapeutic Activity, Therapeutic Exercise, Self-Care/Home Management, Canalith Repositioning Senior Care Goals PT Goal 1 Goal Identifier: HEP [...] Care. Evaluation Time: PT Lev Bajwa Minutes (61492): 35 Signing Clinician: Delicia George PT documented in this encounter Plan of Treatment Upcoming Encounters Date Type Department Care Team (Late st Contact Info) Description 02/26/2024 1:40 PM CDT Appointment [facility] Imaging [address] [place] [phone] Denise Woodson Ra, ORDER PICKER/ASSEMBLER PECAN HULLER [address] [place] [address] 02/26/2024 2:15 PM CDT Therapy Visit [facility] 150 [place] [phone] Danya You, PA [address] [place], [place] [address] Charis Chacon, JUAN [facility] [address] [place] [address] 02/26/2024 3:00 PM CDT Therapy Visit [facility] 150 [place] [address] Danya You PA [address] [place] [address] Isabel Beaulieu OTR [facility] 150 [place] [address] 02/27/2024 4:45 PM CDT Therapy Visit [facility] 150 [place] [address] Danya You, PA 2450 [facility] J[facility]IE [address] [place] [address] Vanessa Duggan, PT 03/05/2024 1:30 PM CDT Therapy Visit [facility] 150 [place] [address] Danya You, AMAIRANI [address] [address] Isabel Beaulieu OTR [address] [address] 03/05/2024 3:15 PM CDT Therapy Visit [address] [phone] Danya You, PA [facility] [address] [address] Charis Chacon, [facility] [address] [place] [address] 03/05/2024 4:15 PM CDT Therapy Visit [address] [phone] Danya You, PA [address] [address] Delicia George, PT [facility] [address] [address] 03/11/2024 2:15 PM CDT Therapy Visit [address] [phone] Danya You, PA [address] [address] Isabel Beaulieu, OTR [address] [address] 03/11/2024 3:00 PM CDT Therapy Visit [address] [phone] Danya You, PA [facility] [address] [address] Charis Chacon, [facility] [address] [place] [address] 03/11/2024 4:15 PM CDT Therapy Visit [address] [phone] Danya You, PA [facility] [address] [address] Delicia George, PT [facility] [address] [place] [address] 03/17/2024 10:00 AM CDT Office Visit [facility] [address] [place] [phone] Denise Woodson Ra, ORDER PICKER/ASSEMBLER [facility] [address] [place] [address] 03/17/2024 1:30 PM CDT Therapy Visit [address] [phone] Danya You, PA 2450 [facility] [address] [place] [address] Isabel Beaulieu, OTR [address] [address] 03/17/2024 2:30 PM CDT Therapy Visit [address] [phone] Danya You, PA [address] [address] Charis Chacon SLP [facility] [address] [place] [address] 03/17/2024 4:00 PM CDT Therapy Visit [address] [phone] Danya You, PA [address] 97[address] Vanessa Duggan, GALINA 03/23/2024 10:30 AM CDT Office Visit [facility] [address] [place] [address] Denise Woodson Ra, ORDER PICKER/ASSEMBLER [facility] [address] [place], [place] [address] 03/26/2024 1:30 PM CDT Therapy Visit [address] [place] [address] Danya You, AMAIRANI [address] [place] [address] Isabel Beaulieu, OTR [facility] [address] [place] [address] 03/26/2024 2:30 PM CDT Therapy Visit [facility] 150 [place] [phone] Danya You, AMAIRANI 2450 [facility] JIE [address] [address] Charis Chacon, [facility] [address] [place] [address] 03/26/2024 3:30 PM CDT [facility] 150 [place] [phone] Danya You, AMAIRANI [address] [place] [address] Delicia George, PT [facility] [address] [place] [address] 04/02/2024 2:15 PM CDT Therapy Visit [facility] 150 [place] [address] Danya You, AMAIRANI [address] [place] [address] Isabel Beaulieu, [facility]TR [facility] 150 [place] [address] 04/02/2024 3:15 PM CDT Therapy Visit [address] [address] Danya You PA [address] [place] [address] Charis Chacon SLP [facility] [address] [place] [address] 04/02/2024 4:15 PM CDT Therapy Visit [address] [address] Danya You PA [address] [address] Delicia George, PT [facility] [address] [place] [address] 04/09/2024 3:15 PM CDT Therapy Visit [address] [phone] Danya You PA [address] [place] [address] Charis Chacon, [facility] [address] [place] [address] 04/09/2024 4:15 PM CDT Therapy Visit [address] [phone] Danya You PA [address] [place] [address] Delicia George, PT [facility] 909 [place] [address] 04/15/2024 9:30 AM CDT Therapy Visit M [address] [phone] Danya You, PA [address] [place] [address] Danya Restrepo, EXTERMINATOR 04/23/2024 2:30 PM CDT Therapy Visit M [address] [phone] Danya You, PA [facility] [place] [address] [address] Charis Chacon, EXTERMINATOR [facility] [address] [place] [address] 05/05/2024 2:30 PM CDT Office Visit [facility] [address], [address] [place] [address] Rohit Barcenas MD 420 [facility] [address] [place] [address] 06/23/2024 11:00 AM CDT Virtual Visit [facility] 6401 [place] [phone] Kristin Vázquez, [facility] 6[address] [place] [phone] 06/30/2024 2:00 PM CDT Virtual Visit M [facility] [address] [facility] [place], [place] [phone] Gurpreet Kristin M, [facility] [address] [facility] PRIMO CORTEZ [phone] documented as of this encounter Visit Diagnoses Diagnosis Cerebrovascular accident (CVA), unspecified mechanism (H) documented in this encounter Additional Health Concerns Assessment Noted Time PHQ-9 Depression Total Score: 0 06/23/20 21 4:11 PM CDT documented as of this encounter Care Teams Car Wash Attendant Automatic Relationship Specialty Start Date End Date Winston Villatoro, AMELIE [facility] [place] [address] [place] [address] PCP - Ophthalmology Ophthalmology 02/11/13 Denise Woodson Ra, APRN PECAN HULLER [address] [address] [place] [address] PCP - General Family Practice 09/21/20 Denise Woodson Ra, APRN PECAN HULLER [address] [address]UL[address] [facility] [place] [address] Assigned PCP 07/17/20 Usha Simon APRN PECAN HULLER 9 [facility] [id number] [address] Nurse Practitioner Neurological Surgery 01/24/24 Dangelo Salinas MD [address] [place], [place] [id number] Neurology 01/27/24 documented as of this encounter
--- OUTSIDE RECORDS SUMMARY | 2024-02-22 15:24 | XMS_ITS | Encounter Summary ---
Author Organization [facility] Address [address] [place] [id number] Care Team Providers Care Building Superintendent Name Role Phone Winston Villatoro OD Unavailable [phone] Denise Woodson Ra, APRN LOGISTICS ASSOCIATE Unavailable [phone] Denise Woodson Ra, APRN LOGISTICS ASSOCIATE Primary Care Provid er Usha Simon APRN LOGISTICS ASSOCIATE Unavailable [phone] Reason for Referral * Mental Health Outpatient (Routine: Next available opening) - Pending Review Specialty Diagnoses / Procedures Referred By Nila shah Referred To Contact Behavioral Health Diagnoses Mild recurrent major depression (H24) Robin Sibley MD [address] [place] [address] Referral ID Status Reason Start Date Expiration Date V isits Requested Visits Authorized [id number] Pending Review 01/26/2024 01/25/2025 1 1 Question Answer Services: Assess/Evaluate for appropriate service (non-medication assessment) My Clinical Question Is: patient intersted in outpatient health psychology post rehab discharge Scheduling Instructions: [facility] will call you to coordinate your care as prescribed by your provider. If you don't hear from a denial management representative within 2 business days, please call [...] plan with any benefit or coverage questions. [facility] will call you to coordinate your care as prescribed by your provider. If you don't hear from a denial management representative within 2 business days, please call . * Therapeutic Services (Routine) - Pending Review Specialty Diagnoses / Procedures Referred By Contac t Referred To Contact Diagnoses Cerebrovascular accident (CVA), unspecified mechanism (H) Danya You PA [address] MB [address] [place], [place] [address] Referral ID Status Reason Start Date Expiration Date V isits Requested Visits Authorized [id number] Pending Review 01/24/2024 01/23/2025 1 1 Question Answer Course of Action: Evaluation and Treatment Speech Treatment Diagnosis: Cognitive Deficits Specialty Services: Per Associated Diagnosis Scheduling Instructions: [facility] will call you to coordinate your care as prescribed by your provider. If you don't hear from a denial management representative within 2 business days, please call . Comments Please be aware that coverage of these services is subject to the terms and limitations of your health insurance plan. Call member services at your health plan with any benefit or coverage questions. [facility] will call you to coordinate your care as prescribed by your provider. If you don't hear from a denial management representative within 2 business days, please call . * Occupational Therapy (Routine) - Pending Review Specialty Diagnoses / Procedures Referred By Contac t Referred To Contact Diagnoses Cerebrovascular accident (CVA), unspecified mechanism (H) Danya You PA [address] [place] [address] Referral ID Status Reason Start Date Expiration Date V isits Requested Visits Authorized [id number] Pending Review 01/24/2024 01/23/2025 1 1 Question Answer Course of Action: Evaluation and Treatment Specialty Services: Per Associated Diagnosis Scheduling Instructions: [facility] will call you to coordinate your care as prescribed by your provider. If you don't hear from a denial management representative within 2 business days, please call . Comments Please be aware that coverage of these services is subject to the terms and limitations of your health insurance plan. Call member services at your health plan with any benefit or coverage questions. [facility] will call you to coordinate your care as prescribed by your provider. If you don't hear from a denial management representative within 2 business days, please call . * Rehab Therapy Integrated Services (Routine) - Authorized Specialty Diagnoses / Procedures Referred By Nila shah Referred To Contact Diagnoses Cerebrovascular accident (CVA), unspecified mechanism (H) [address] [address] Referral ID Status Reason Start Date Expiration Date V isits Requested Visits Authorized [id number] Authorized 09/16/2023 09/15/2024 365 365 Question Answer Course of Action: Evaluation and Treatment Specialty Services: Per Associated Diagnosis Scheduling Instructions: [facility] will call you to coordinate your care as prescribed by your provider. If you don't hear from a denial management representative within 2 business days, please call . Comments Please be aware that coverage of these services is subject to the terms and limitations of your health insurance plan. Call member services at your health plan with any benefit or coverage questions. [facility] will call you to coordinate your care as prescribed by your provider. If you don't hear from a denial management representative within 2 business days, please call . Reason for Visit * Auth/Cert (Routine) Specialty Diagnoses / Procedures Referred By Nila shah Referred To Contact Rehabilitation Diagnoses 01.2 Right body, left brain stroke, multiple acute ischemic infarcts in the frontal and parietal lobes, left supramarginal gyrus following angiogram [facility] [address] [address] Referral ID Status Reason Start Date Expiration Date Visits Re quested Visits Authorized [id number] 1 1 Encounter Details Date Type Department Care Team (Latest Contact Info) Description 01/22/2024 2:38 PM CDT - 01/26/2024 12:31 PM CDT Hospital Encounter [address] [address] Parminder Del Angel MD [address] [place] [address] Cerebrovascular accident (CVA), unspecified mechanism (H) (Primary [...] from the original note were not included. [facility] Discharge summary Date [...] presented for a planned catheter angiogram at [facility] for left sided pulsatile tinnitus, following procedure found to have multiple acute ischemic infarcts of the frontal lobes, parietal lobes and left supramarginal gyrus after procedure with associated right sided weakness and numbness, likely embolic in nature secondary to procedure complication, complicated by post-stroke seizures, admitted on 01/17/2024 at [facility] for acute inpatient rehabilitation. Discharged in setting of acute mental status change, concern for seizure, workup felt not consistent with seizure, episodes felt related to fatigue/stress. Functionally making progress with ongoing strength, balance, activity tolerance, and cognition below baseline, plan fo rhome with outpatient PT/OT/ASSEMBLY STOCK SUPERVISOR. 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 Recommend transportation A. Vision/Cognition: Glasses. Noted undershoot with R saccades and 1x break in horizontal pursuits; endorses diplopia with convergence ~ 3 inch distance and at far distance. Concern for potential peripheral vision issues impairing anchoring/spatial awareness in environment. Cognitively, pt self-reports identifies as neurodivergent; slower processing, distractible in noisy environments. ASSEMBLY STOCK SUPERVISOR: Current Status: Hearing: WFL Vision: Glasses- reporting [...] # Headaches, frontal Patient was seen by [facility] interventional neuroradiology for diagnostic catheter cerebral angiogram for left sided pulsatile tinnitus 01/09/24. After the procedure, patient had a severe headache, episode of emesis, new onset right arm weakness and numbness, was found to have multiple acute ischemic infarcts of the frontal lobes, parietal lobes and left supramarginal gyrus, neurology believed embolic in nature, likely procedural complication - continue PT, OT, ASSEMBLY STOCK SUPERVISOR as outpatient - Secondary stroke ppx: - [...] but would like to transition cares to [facility]. 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 - Hydroxyzine PRN, psychology follow up as outpatient (ordered) # History of ASD, repaired: Per chart, has Amplatz septal occluder device in place. # Insomnia - MANAGER FEDERAL Atarax 50 mg at bedtime - MANAGER FEDERAL Trazodone 100 mg at bedtime # Constipation - MANAGER FEDERAL Magnesium oxide 400 mg at bedtime - PRN Senna # Seasonal allergies - Zyrtec 10 mg qday # Sleep - Trazodone 100 mg at bedtime - evaluate need during rehab stay # Asthma - MANAGER FEDERAL Breo Ellipta qday DISCHARGE MEDICATIONS Current Discharge [...] FOLLOW UP Discharge Procedure Orders Physical Therapy Anodize Machine Operator Referral Standing Status: Future Referral Priority: Routine Referral Type: Rehab Therapy Physical Therapy Number of Visits Requested: 1 Occupational Therapy Anodize Machine Operator Referral Standing Status: Future Referral Priority: Routine Referral Type: Occupational Therapy Number of Visits Requested: 1 Speech Therapy Anodize Machine Operator Referral Standing Status: Future Referral Priority: Routine Referral Type: Therapeutic Services Number of Visits Requested: 1 Adult Mental Health Anodize Machine Operator Referral Standing Status: Future Referral Priority: Routine: [...] Answer Comments Is discharge order? Yes Adult [facility] Follow-up and recommended labs and tests Order Comments: Follow up with primary care provider, Denise Woodson, within 7 days for hospital follow- up. Follow up stroke with stroke neurology Follow up dural av fistula with neuro interventional Appointments on [place] and/or [facility] (with [facility] or [facility] provider or service). Call [phone] if you haven't heard regarding these appointments [...] the patient's case with my attending, Dr. Roebrt MD , who agrees with the following above. Robin Sibley DO PGY-3 Physical Medicine & Rehabilitation Associated attestation [...] Dr. Woodson on 02/06/2024 at 8:10AM. Address [address] [place] neurology- follow up stroke & seizure You will be contacted to schedule follow up. 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 Address [address] [facility] [place] Stroke [employer] [email or web address].org Resource Facilitation is a free, two-year telephone support program provides education and connection to supports and services to assist people throughout [place] in navigating life after brain injury. Participants [...] Coaching on navigation the federal, state and [facility] health and disability service system with additional support and conference calls as needed Help finding appropriate legal support for appealing and navigating Social Security Disability, providing advocacy on the individual???s behalf as needed and connecting with cost effective alternatives to journeyman operator assistant as needed Supporting parents/students with how to [...] can help, just ask. Call us at [phone] or [phone]. documented in this encounter Medications at Time [...] dyspnea or wheezing 1 Inhaler 3 07/13/2020 cetirizine (ZYRTEC) 10 MG tablet Take 10 [...] by mouth daily traZODone (DESYREL) 50 MG tabletIndications:Ins omnia, unspecified type Take 2 tablets (100 mg) by mouth At Bedtime 180 tablet 3 07/27/2021 BREO ELLIPTA 200-25 MCG/INH InhalerIndications:Mo derate persistent asthma without complication INHALE 1 PUFF INTO THE LUNGS DAILY 3 each 1 02/22/2022 senna-docusate (SENOKOT-S/PERICOLACE ) 8.6-50 MG tabletIndications:Oth er constipation Take 2 tablets by mouth 2 times daily as needed for constipation 01/22/2024 aspirin (ASA) 325 MG EC tabletIndications:Cer ebrovascular [...] goal(s). See goals on Care Plan in [facility] electronic health record for goal details. Goals met Therapy recommendation(s): Continued therapy is recommended. Rationale/Recommendations: Return to work and return to driving. Summary: Alcon Zamora is a 48 year old female with past medical history of Lizy-Danlos syndrome,mild persistent asthma, anxiety and depression, and fibromyalgia who presented for a planned catheter angiogram at [facility] for left sided pulsatile tinnitus, following procedure found to h ave multiple acute ischemic infarcts of the frontal lobes, parietal lobes and left supramarginal gyrus after procedure with associated right sided weakness and numbness, likely embolic in nature secondary to procedure complication, complicated by post-stroke seizures, admitted on 01/17/2024 at [facility] for acute inpatient rehabilitation. Discharge Plan: Home alone daytime, IADL A evening family; OP OT Precautions: fall, vision, RUE sensory deficit Current Status: ADLs: Mobility: Ind Grooming: Ind Dressing: Ind Bathing: Mod I with ETB and grab bars Toileting: Ind with grab bar IADLs: Ind with pet care and light kitchen tasks. 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 Recommend transportation A. Vision/Cognition: Glasses. Noted undershoot [...] prior to discharge in PM. * Suraj Rivera, ASSEMBLY STOCK SUPERVISOR - 01/26/2024 10:20 AM CDT Speech Language Therapy Discharge Summary Reason for therapy discharge: Discharged to home with outpatient therapy. Progress towards therapy goal(s). See goals on Care Plan in Epic electronic health record for goal details. Goals partially met. Barriers to achieving goals: discharge from facility. Therapy recommendation(s): Continued therapy is recommended. Rationale/Recommendations: OP ASSEMBLY STOCK SUPERVISOR for high level cognition, return to work. [...] of fatigue on cognition, recommendation for ongoing ASSEMBLY STOCK SUPERVISOR for high level cognition as pt wanting [...] Paula OTR - 01/25/2024 3:26 PM CDT Railroad Car Loader Post-Acute Rehab OT: Discharge Plan: home alone daytime, IADL A evening family; OP OT Precautions: fall, vision, RUE sensory deficit Current Status: ADLs: Mobility: Ind in room Grooming: Ind Dressing: Ind Bathing: Mod I with ETB and grab bars Toileting: Ind with grab bar IADLs: Ind with pet care and light kitchen tasks. 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 Recommend transportation A. Vision/Cognition: Glasses. Noted undershoot [...] Signing clinician's name / credentials Danya Ricks DPT Functional Gait Assessment (Edward Vargas, Yanna Quinones., et al. (2004)) 1. GAIT LEVEL SURFACE [...] with vestibular disorder = 8 according to Miriamley & Case 2010 Assessment (rationale for performing, application to patient? s function & care plan): Pt performs at/above falls risk threshold. Significant change since previous attempt (exceeds MDC) * Johnathon Jones MD - 01/25/2024 11:08 AM CDT Images from the original note were not included. [facility] Daily progress note [...] Danya You PA 325 mg at 01/25/24 0809 cetirizine (zyrTEC) tablet 10 mg 10 mg [...] presented for a planned catheter angiogram at [facility] for left sided pulsatile tinnitus, following procedure found to have multiple acute ischemic infarcts of the frontal lobes, parietal lobes and left supramarginal gyrus after procedure with associated right sided weakness and numbness, likely embolic in nature secondary to procedure complication, complicated by post-stroke seizures, admitted on 01/17/2024 at [facility] for acute inpatient rehabilitation. Discharged in setting of acute mental status change, concern for seizure, workup felt not consistent with seizure, episodes felt related to fatigue/stress. Functionally making progress with ongoing strength, balance, activity tolerance, and cognition below baseline, Patient will require and benefit from PT, OT, and ASSEMBLY STOCK SUPERVISOR services as well as all of the ancillaryservices offered in the inpatient rehab setting. 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 After the procedure, patient had a severe headache, episode of emesis, new onset right arm weakness and numbness, was found to have multiple acute ischemic infarcts of the frontal lobes, parietal lobes and left supramarginal gyrus, neurology believed embolic in nature, likely procedural complication - continue PT, OT, ASSEMBLY STOCK SUPERVISOR as outpatient - Secondary stroke ppx: - [...] but would like to transition cares to [facility]. 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 - Hydroxyzine PRN -monitor mood # History of ASD, repaired: Per chart, has Amplatz septal occluder device in place. # Insomnia - MANAGER FEDERAL Atarax 50 mg at bedtime - MANAGER FEDERAL Trazodone 100 mg at bedtime # Constipation - MANAGER FEDERAL Magnesium oxide 400 mg at bedtime - PRN Senna # Seasonal allergies - Zyrtec 10 mg qday # Sleep - Trazodone 100 mg at bedtime - evaluate need during rehab stay # Asthma - MANAGER FEDERAL Breo Ellipta qday # Bowel: States current [...] this Saturday, 01/25, with OP therapies. 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 Recommend transportation A. Vision/Cognition: Glasses. Noted undershoot [...] - 01/24/2024 3:01 PM CDT Nicolás Dillon OTR/L, attest this note. * Danya You PA - 01/24/2024 9:17 AM CDT Images from the original note were not included. [facility] Daily progress note [...] Daily Danya You PA 10 mg at 01/24/24 0836 fluticasone-vilanterol (BREO ELLIPTA) 200-25 MCG/ACT inhaler 1 puff 1 puff Inhalation Daily Danya You PA 1 puff at 01/24/24 0840 hydrOXYzine HCl (ATARAX) tablet 50 mg 50 mg Oral At Bedtime Danya You PA 50 mg at 01/23/24 203 levETIRAcetam (KEPPRA) tablet 750 mg 750 mg [...] Daily Danya You PA 1 packet at 01/24/2436 rosuvastatin (CRESTOR) tablet 20 mg 20 mg [...] presented for a planned catheter angiogram at [facility] for left sided pulsatile tinnitus, following procedure found to have multiple acute ischemic infarcts of the frontal lobes, parietal lobes and left supramarginal gyrus after procedure with associated right sided weakness and numbness, likely embolic in nature secondary to procedure complication, complicated by post-stroke seizures, admitted on 01/17/2024 at [facility] for acute inpatient rehabilitation. Discharged in setting of acute mental status change, concern for seizure, workup felt not consistent with seizure, episodes felt related to fatigue/stress. Functionally making progress with ongoing strength, balance, activity tolerance, and cognition below baseline, Patient will require and benefit from PT, OT, and ASSEMBLY STOCK SUPERVISOR services as well as all of the ancillaryservices offered in the inpatient rehab setting. 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 After the procedure, patient had a severe headache, episode of emesis, new onset right arm weakness and numbness, was found to have multiple acute ischemic infarcts of the frontal lobes, parietal lobes and left supramarginal gyrus, neurology believed embolic in nature, likely procedural complication - continue PT, OT, ASSEMBLY STOCK SUPERVISOR as outpatient - Secondary stroke ppx: - [...] but would like to transition cares to [facility]. 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 - Hydroxyzine PRN -monitor mood # History of ASD, repaired: Per chart, has Amplatz septal occluder device in place. # Insomnia - MANAGER FEDERAL Atarax 50 mg at bedtime - MANAGER FEDERAL Trazodone 100 mg at bedtime # Constipation - MANAGER FEDERAL Magnesium oxide 400 mg at bedtime - PRN Senna # Seasonal allergies - Zyrtec 10 mg qday # Sleep - Trazodone 100 mg at bedtime - evaluate need during rehab stay # Asthma - MANAGER FEDERAL Breo Ellipta qday # Bowel: States current [...] Alvarado RN - 01/24/2024 6:49 AM CDT [id number] BP 123/47 (BP Location: Right arm) Pulse [...] Clinician's Name / Credentials (PT) Danya Ricks DPT Living Environment People in Home spouse;child(vipul), [...] presented for a planned catheter angiogram at [facility] for left sided pulsatile tinnitus, following procedure found to have multipleacute ischemic infarcts of the frontal lobes, parietal lobes and left supramarginal gyrus after procedure with associated right sided weakness and numbness, likely embolic in nature secondary to procedure complication, complicated by post-stroke seizures, admitted on 01/17/2024 at [facility] for acute inpatient rehabilitation. Discharged in setting [...] Strength Comments Mild impairments in R UE foam molder per OT. No overt asymmetries in functional [...] Evaluation Time PT Eval, Moderate Complexity Minutes (25307) 45 Physical Therapy Goals PT Frequency 6x/week Interventions Interventions Quick Adds Therapeutic Activity Therapeutic Activity Therapeutic Activities: dynamic activities to improve functional performance Minutes (23107) 15 Treatment Detail/Skilled Intervention Patient education on post-stroke rehab timeline, factors influencing dynamic balance (vision, sensation, reaction time, fatigue etc). Pt eager to amb w/o FWW, endorses also fearful without. Progressed from in room amb a/ FWW Imtiaz to mobilizing with DISPATCHER RELAY > CGAw/o AD. 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 Recommend transportation A. Vision/Cognition: Glasses. Noted undershoot [...] toilets. Tub/shower combo upstairs with high height holter technician tub. 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 Post-Acute Assessment Only Post-Acute Functional Assessment See [...] by post-stroke seizures, admitted on 01/17/2024 at [facility] for acute inpatient rehabilitation. Discharged in setting of acute mental status change, concern for seizure, workup felt not consistent with seizure, episodes felt related to fatigue/stress. Functionally making progress with ongoing strength, balance, activity tolerance, and cognition below baseline, Patient will require and benefit from PT, OT, and ASSEMBLY STOCK SUPERVISOR services as well as all of the ancillary services offeredin the inpatient rehab setting. 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 R [...] Evaluation Time OT Eval, Moderate Complexity Minutes (64121) 20 OT Goals Therapy Frequency (OT) 6 [...] Management Self-Care/Home Mgmt/ADL, Compensatory, Meal Prep Minutes (93746) 40 Symptoms Noted During/After Treatment (Meal Preparation/Planning [...] Rivera, JUAN - 01/23/2024 12:18 PM CDT 05/09/24 8369 Appointment Info Signing Clinician's Name / Credentials (ASSEMBLY STOCK SUPERVISOR) Suraj Rivera MS, [facility]-ASSEMBLY STOCK SUPERVISOR General Information Onset of Illness/Injury or Date of Surgery 01/09/24 Referring Physician Danya You PA Pertinent History of Current Problem Per H&P: Patient is 48 year old female with past medical history of Lizy-Danlos syndrome, mild persistent asthma, anxiety and depression, fibromyalgia who presented for a planned catheter angiogram at [facility] for evaluation of left sided pulsatile tinnitus [...] MRI 01/19 with low suspicion for seizure. Garnavillo secondary to fatigue/ over exertion. If recurrent episodes, as described, occur call on-call neuro, not to be treated like seizure, note tonic-clonic activity should be treated with lorazepam. ASSEMBLY STOCK SUPERVISOR consult received for evaluation and treatment as indicated. General Observations Prior ARU admission pt participated cognitive (RBANS A) and dysphagia evaluations, no ongoing interventions recommended for dysphagia as pt demo'd WNL oral and pharyngeal swallowfunction with regular solids/thin liquids (0). Pt did not receive acute ASSEMBLY STOCK SUPERVISOR services during re-hospitalization. Plan to re-evaluate cognitive [...] Impression Criteria for Skilled Therapeutic Interventions Met (ASSEMBLY STOCK SUPERVISOR Eval) Yes, treatment indicated ASSEMBLY STOCK SUPERVISOR Diagnosis Mild cognitive impairment Activity Limitations Related to Problem List (ASSEMBLY STOCK SUPERVISOR) Cognitive function, endurance for return to work. Risks & Benefits of therapy have been explained evaluation/treatment results reviewed;care plan/treatment goals reviewed;participants voiced agreement with care plan;participants included;patient Clinical Impression Comments ASSEMBLY STOCK SUPERVISOR: Motor speech, language intact. RBANS form B administered and interpreted. Pt with improvement in overall score, delayed memory and attention domains. Pt with lower score in visuospatial domain, reported vision blurrier than prior administration. Skilled ASSEMBLY STOCK SUPERVISOR services indicated to train in cognitive strategies, instruct in therapeutic activities to promote cognitive function. ASSEMBLY STOCK SUPERVISOR Total Evaluation Time Cognitive Performance Testing Minutes, per hour - includes time for administering test, interp results & prep report ([id number]) 60 ASSEMBLY STOCK SUPERVISOR Goals Therapy Frequency (ASSEMBLY STOCK SUPERVISOR Eval) 6 times/week ASSEMBLY STOCK SUPERVISOR Predicted Duration/Target Date for Goal Attainment 01/30/24 ASSEMBLY STOCK SUPERVISOR Goals ASSEMBLY STOCK SUPERVISOR Goal 1;ASSEMBLY STOCK SUPERVISOR Goal 2 ASSEMBLY STOCK SUPERVISOR: Goal 1 Patient will complete high level attention (alternating, divided) tasks with 90% or greater independent accuracy. ASSEMBLY STOCK SUPERVISOR: Goal 2 Patient will complete high complexity reasoning/problem solving witn 90% or greater independent accuracy. ASSEMBLY STOCK SUPERVISOR Discharge Planning ASSEMBLY STOCK SUPERVISOR Plan ASSEMBLY STOCK SUPERVISOR: ELBERT as treatment. Intro attention strategies. Tx high level attention, reasoning/problem solving. Post Acute Settings Only What unit is patient on? Acute Rehab ASSEMBLY STOCK SUPERVISOR - Acute Rehab Center Time Individual Time (minutes) - ASSEMBLY STOCK SUPERVISOR 60 Group Time (minutes) - ASSEMBLY STOCK SUPERVISOR 0 Concurrent Time (minutes) - ASSEMBLY STOCK SUPERVISOR 0 Co-Treatment Time (minutes) - ASSEMBLY STOCK SUPERVISOR 0 ARC Total Session Time (minutes) - ASSEMBLY STOCK SUPERVISOR 60 ARC Daily Total Session Time ASSEMBLY STOCK SUPERVISOR ARC Daily Total Session Time 60 ARC Daily Rehab Total Minutes 60 Repeatable Battery for the Assessment of Neuropsychological Status (RBANS) FORM Immediate Memory Visuospatial/ Constructional Language Attention Delayed Memory Total Scale Index Score 85 96 91 88 103 89 Percentile Rank 16 39 27 21 58 23 ASSEMBLY STOCK SUPERVISOR: Pt seen for administration of RBANS. Results are based on a mean of 100 and a standard deviation of +/- 15. Interpretation: Please see above. Face to Face Administration: 45 Scoring/Interpretation: 15 Total Time: 60 * Danya You PA - 01/23/2024 8:52 AM CDT Images from the original note were not included[facility] Daily progress note [...] Daily Danya You PA 1 packet at 01/23/24801 rosuvastatin (CRESTOR) tablet 20 mg 20 mg [...] presented for a planned catheter angiogram at [facility] for left sided pulsatile tinnitus, following procedure found to have multiple acute ischemic infarcts of the frontal lobes, parietal lobes and left supramarginal gyrus after procedure with associated right sided weakness and numbness, likely embolic in nature secondary to procedure complication, complicated by post-stroke seizures, admitted on 01/17/2024 at [facility] for acute inpatient rehabilitation. Discharged in setting of acute mental status change, concern for seizure, workup felt not consistent with seizure, episodes felt related to fatigue/stress. Functionally making progress with ongoing strength, balance, activity tolerance, and cognition below baseline, Patient will require and benefit from PT, OT, and ASSEMBLY STOCK SUPERVISOR services as well as all of the ancillaryservices offered in the inpatient rehab setting. 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 After the procedure, patient had a severe headache, episode of emesis, new onset right arm weakness and numbness, was found to have multiple acute ischemic infarcts of the frontal lobes, parietal lobes and left supramarginal gyrus, neurology believed embolic in nature, likely procedural complication - continue PT, OT, ASSEMBLY STOCK SUPERVISOR - Secondary stroke ppx: - BP: Goal [...] but would like to transition cares to [facility]. 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 - Hydroxyzine PRN -monitor mood # History of ASD, repaired: Per chart, has Amplatz septal occluder device in place. # Insomnia - MANAGER FEDERAL Atarax 50 mg at bedtime - MANAGER FEDERAL Trazodone 100 mg at bedtime # Asthma - MANAGER FEDERAL Breo Ellipta qday # Constipation - MANAGER FEDERAL Magnesium oxide 400 mg at bedtime - PRN Senna # Seasonal allergies - Zyrtec 10 mg qday # Sleep - Trazodone 100 mg at bedtime - evaluate need during rehab stay # Asthma - MANAGER FEDERAL Breo Ellipta qday # Bowel: States current [...] Alcon Zamora as part of a shared CORPORATE STRATEGY ASSOCIATE/PA visit. I personally reviewed the vital signs, [...] from the original note were not included. [facility] Admission History and Physical CHIEF COMPLAINT stroke HISTORY OF PRESENT ILLNESS Alcon Zamora is a 48 year old female with past medical history of Lizy-Danlos syndrome, mild persistent asthma, anxiety and depression, fibromyalgia who presented for a planned catheter angiogram at [facility] for evaluation of left sided pulsatile tinnitus [...] MRI 01/19 with low suspicion for seizure. Garnavillo secondary to fatigue/ over exertion. If recurrent [...] PAST MEDICAL HISTORY Reviewed and updated in [facility]. Past Medical History: Diagnosis Date Acute posthemorrhagic [...] asthma SURGICAL HISTORY Reviewed and updated in [facility]. Past Surgical History: Procedure Laterality Date C RESIDENTIAL DOOR UNIT INSTALLER PROCEDURE DATE: vag del. C RESIDENTIAL DOOR UNIT INSTALLER PROCEDURE DATE: 2000 tubal ligation C RESIDENTIAL DOOR UNIT INSTALLER PROCEDURE DATE: 1994 D&C CARDIAC SURGERY 06/2006 heart defect repair ESOPHAGOSCOPY, GASTROSCOPY, DUODENOSCOPY (EGD), COMBINED N/A 02/08/2021 Procedure: ESOPHAGOGASTRODUODENOSCOPY (EGD); Surgeon: Tuan Miller MD; Location: GI GI SURGERY 09/2020 gallbladder removed HC KNEE SCOPE,MED/LAT MENISECTOMY 08/04/13 LT HEART CATH, CLOSURE ATRIAL SEPTAL DEFECT 06/20/06 amplatzer septal occluder- serial #[id number] RW RESIDENTIAL DOOR UNIT INSTALLER (ABSTRACTED) pneumonia several times SURGICAL PATHOLOGY EXAM 02/2012 excision of lipoma on chest wall ZZC VAGINAL HYSTERECTOMY 01/30/06 SOCIAL HISTORY Reviewed and updated in [facility]. 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 No Social History Narrative Not on file Social Determinants of Health Financial Resource Strain: Low Risk (01/10/2023) Received from [facility] Overall Financial Resource Strain (CARDIA) Difficulty of Paying Living Expenses: Not hard at all Food Insecurity: No Food Insecurity (01/10/2023) Received from [facility] Hunger Vital Sign Worried About Running Out of Food in the Last Year: Never true Ran Out of Food in the Last Year: Never true Transportation Needs: No Transportation Needs (01/10/2023) Received from [facility] PRAPARE - Transportation Lack of Transportation (Medical): No Lack of Transportation (Non-Medical): No Physical Activity: Sufficiently Active (01/10/2023) Received from [facility] Exercise Vital Sign Days of Exercise per Week: 5 days Minutes of Exercise per Session: 30 min Stress: Stress Concern Present (01/10/2023) Received from [facility] [place] of Occupational Health - Occupational Stress Questionnaire Feeling of Stress : Rather much Social Connections: Socially Isolated (01/10/2023) [facility] Social Connection and Isolation Panel [NHANES] Frequency of Communication with Friends and Family: Once a week Frequency of Social Gatherings with Friends and Family: Once a week Attends Orthodoxy Services: Never Active Member of Clubs or Organizations: No Attends Club or Organization Meetings: Never Marital Status: Interpersonal Safety: Not At Risk (01/10/2023) Received from [facility] Humiliation, Afraid, Rape, and Kick questionnaire Fear of Current or Ex-Partner: No Emotionally Abused: No Physically Abused: No Sexually Abused: No Housing Stability: Low Risk (01/10/2023) Received from [facility] Housing Stability Vital Sign Unable to Pay for Housing in the Last Year: No Number of Places Lived in the Last Year: 1 Unstable Housing in the Last Year: No FAMILY HISTORY Reviewed and updated in [facility]. Family History Problem Relation Age of Onset [...] presented for a planned catheter angiogram at [facility] for left sided pulsatile tinnitus, following procedure found to have multiple acute ischemic infarcts of the frontal lobes, parietal lobes and left supramarginal gyrus after procedure with associated right sided weakness and numbness, likely embolic in nature secondary to procedure complication, complicated by post-stroke seizures, admitted on 01/17/2024 at [facility] for acute inpatient rehabilitation. Discharged in setting of acute mental status change, concern for seizure, workup felt not consistent with seizure, episodes felt related to fatigue/stress. Functionally making progress with ongoing strength, balance, activity tolerance, and cognition below baseline, Patient will require and benefit from PT, OT, and ASSEMBLY STOCK SUPERVISOR services as well as all of the ancillaryservices offered in the inpatient rehab setting. Admission to acute inpatient rehab Right body, left brain stroke, multiple acute ischemic infarcts in the frontal and parietal lobes, left supramarginal gyrus following angiogram Impairment group code: : 01.2 PT, OT and ASSEMBLY STOCK SUPERVISOR 60 minutes of each on a daily basis up to 6 days per week, in addition to rehab nursing and close management of bottom stainer. 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 After the procedure, patient had a severe headache, episode of emesis, new onset right arm weakness and numbness, was found to have multiple acute ischemic infarcts of the frontal lobes, parietal lobes and left supramarginal gyrus, neurology believed embolic in nature, likely procedural complication - continue PT, OT, ASSEMBLY STOCK SUPERVISOR - Secondary stroke ppx: - BP: Goal [...] but would like to transition cares to [facility]. 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 - Hydroxyzine PRN -monitor mood # History of ASD, repaired: Per chart, has Amplatz septal occluder device in place. # Insomnia - MANAGER FEDERAL Atarax 50 mg at bedtime - MANAGER FEDERAL Trazodone 100 mg at bedtime # Asthma - MANAGER FEDERAL Breo Ellipta qday # Constipation - MANAGER FEDERAL Magnesium oxide 400 mg at bedtime - PRN Senna # Seasonal allergies - Zyrtec 10 mg qday # Sleep - Trazodone 100 mg at bedtime - evaluate need during rehab stay # Asthma - MANAGER FEDERAL Breo Ellipta qday # Bowel: States current [...] Alcon Zamora as part of a shared CORPORATE STRATEGY ASSOCIATE/PA visit. I personally reviewed the vital signs, [...] in this encounter Consult Notes * Bárbara Bedolla LICSW - 01/22/2024 2:46 PM CDT Pt was initially admitted to [facility] ARU on 01/17/24 and SW assessment was completed on Saturday01/19/24 by Leanna LI. Assessment copied below. Chart review completed. Pt work ppwk completed and sent to her employer prior to return from ARU. No immediate SW needs. SW will remain available and continue to follow during ARU stay. 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,likely procedural complication HISTORY OF PRESENT ILLNESS Alcon Zamora is a 48 year old female with past medical history of Lizy-Danlos syndrome, mild persistent asthma, anxiety and depression, fibromyalgia presented for a planned catheter angiogram at [facility] for left sided pulsatile tinnitus on 01/09/24, found to have multiple acute ischemic infarcts of the frontal lobes, parietal lobes and left supramarginal gyrus after procedure with associated right sided weakness and numbness, likely embolic in nature secondary to procedure complication, complicated by post-stroke seizures, now being admitted on 01/17/2024 at [facility] for acute inpatient rehabilitation. Provider Information Primary Care Physician: Denise Woodson [phone] [facility] [id number] [facility] will schedule PCP apt at discharge. Receiver Dispatcher: EMILY Mental Health/Chemical Dependency: Diagnosis: Pt reported [...] drugs. Support/Services in Place: medication. Services Needed/Recommended: [place] and Health Psychology support while on ARU available. Sexuality/Intimacy: Not discussed Support System Marital Status: Family support: Emilie (), Silas (son), Erica (daughter) in [place], Kenji (son) in [place]. Pt has 2 granddaughters. Other support available: emily Community Resources Current in home services: Pt denies current home services. 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. Income Source: Pt work and also works Education: not discussed Financial Concerns: Pt reported trying to figure out short term disability and FMLA. Dual householdand need to figure out finances. Pt will talk to work on Saturday for FMLA paperwork. PT reported short term disability won't start until 30 days. Informed Pt to get FMLA paperwork and give it directlyto Doctor. Insurance: Fantasy [employer]er/[employer] OPEN ACCESS Discharge Plan Patient and family discharge goal: TBD, pending progress. Goal is to go home. Provided Education on discharge plan: Evaluations and discharge recommendations pending. Patient agreeable to discharge plan: Pending further discussion. Evaluations and discharge recommendations pending. Provided education and attained signature for Medicare IM and IRF Patient Rights and Privacy Information provided to patient : NA Provided patient with [place] [facility] [place] Resources: Provided booklet and made [facility]. Barriers to discharge: none at the moment Discharge Recommendations Disposition: See above Transportation Needs: Additional comments Discharge TBD, ELOS +/- 14 days . Evals and discharge needs pending. SW will remain available and continue to follow as needs arise. Pt would like information on how to transfer her care to [place]. Doesn't want to go back to [place]. VIDHYA Pain Assessment Pain Effect on Sleep [...] Rarely or not at all Leanna Call [facility], [facility], [facility] Cyber Intel Planner Social Work [address] [place] [id number] (PH [phone] or [phone]) documented in this encounter Miscellaneous Notes * [...] goal(s). See goals on Care Plan in [facility] electronic health record for goal details. Goals met Therapy recommendation(s): Continued therapy is recommended. Rationale/Recommendations: Recommend OP PT for progressing higherlevel dynamic balance. Pt score above falls risk threshold, however requests FWW at discharge, issued from facility. Outcome Measures: FGA 01/13 on on 01/21/24/30 on 01/24 TU.5 seconds without AD, 9 [...] at work. ELOS 5 days . Communication/Cognition/Swallow: ASSEMBLY STOCK SUPERVISOR: Motor speech, language intact. RBANS form B administered and interpreted. Pt with improvement in overall score, delayed memory and attention domains. Pt with lower score in visuospatial domain, reported vision blurrier than prior administration. Skilled ASSEMBLY STOCK SUPERVISOR services indicated to train in cognitive strategies, instruct in therapeutic activities to promote cognitive function. Intensity of therapy: PT 60 minutes, 6x/week, for 7 days OT 60 minutes, 6 times/week, for 7 days ASSEMBLY STOCK SUPERVISOR 60 minutes, 6 times/week, for 7 days Medical Prognosis: Good prognosis to achieve medical stability Physician summary statement: Patient has made reasonable gains in a short period of time while on rehab and is anticipated to be able to discharge to home with modified independence. Discharge destination: prior home Discharge rehabilitation needs: outpatient, PT, OT, and ASSEMBLY STOCK SUPERVISOR Estimated length of stay: 7 days Rehabilitation [...] Rivera SLP - 01/25/2024 12:19 PM CDT Railroad Car Loader Post-Acute Rehab ASSEMBLY STOCK SUPERVISOR: Discharge Plan: home with , ongoing OP ASSEMBLY STOCK SUPERVISOR Precautions: seizure Current Status: Hearing: WFL Vision: [...] to Discharge (Family Training, etc): None from ASSEMBLY STOCK SUPERVISOR perspective * Pharmacy-Admission Medication History - Isael Cevallos RPH - 01/25/2024 10:01 AM CDT Please see Admission Medication History completed on 01/20/24 under previous encounter at [facility] for information regarding prior to admission medications. Isael Cevallos PGY1 Mail Processing Clerk * Plan of Care - Danya Ricks PT - 01/25/2024 9:27 AM CDT Railroad Car Loader Post-Acute Rehab PT: Discharge Plan: home with [...] Rivera SLP - 01/24/2024 11:15 AM CDT Railroad Car Loader Post-Acute Rehab ASSEMBLY STOCK SUPERVISOR: Discharge Plan: home with , ongoing OP ASSEMBLY STOCK SUPERVISOR Precautions: seizure Current Status: Hearing: WFL Vision: [...] memory strategies. PA arrived during session to gabino, ASSEMBLY STOCK SUPERVISOR utilized opportunity to probe pt's independent use/carryover ofstrategy, pt recalled 2/3 questions indepenently, looked at note moncia to ask third. Instructed pt in medication label reading task of ELBERT, pt completed with 90% independent accuracy,required moderat cues from ASSEMBLY STOCK SUPERVISOR for pill placement first opportunity (1 tablet 4x a day). P.M.: Instructed pt in higher level cognitive ask with alternating attention, visual scanning and working memory components. Pt demo'd increased accuracy, speed with task with each opportunity; verbalized being very pleased at her performancfe. Other Barriers to Discharge (Family Training, etc): None from ASSEMBLY STOCK SUPERVISOR perspective * Plan of Care - Danya Ricks PT - 01/24/2024 8:09 AM CDT Railroad Car Loader Post-Acute Rehab PT: Discharge Plan: home with [...] Ricks PT - 01/23/2024 4:19 PM CDT Railroad Car Loader Post-Acute Rehab PT: Discharge Plan: home with [...] * Pharmacy-Medication Regimen Review - Maryse Martin [facility] - 01/23/2024 1:11 PM CDT Pharmacy Medication [...] g, 2 g, Topical, 4x Daily PRN, aDnya You PA fluticasone-vilanterol (BREO ELLIPTA) 200-25 MCG/ACT inhaler 1 puff, 1 puff, Inhalation, Daily, Danya You PA, 1 puff at 01/23/24 0800 hydrOXYzine HCl (ATARAX) tablet 50 mg, 50 mg, Oral, TID PRN, Danya You PA hydrOXYzine HCl (ATARAX) tablet 50 mg, 50 mg, Oral, At Bedtime, Danya You PA, 50 mg at 01/22/242135 levETIRAcetam (KEPPRA) tablet 750 mg, 750 mg, Oral, BID, Danya You PA, 750 mg at 802 Lidocaine (LIDOCARE) 4 % Patch 1 patch, 1 patch, Transdermal, Q24H, Danya You PA magnesium oxide (MAG-OX) half-tab 200 mg, 200 mg, Oral, At Bedtime, Danya Yuo PA, 200 mg at 01/22/242134 methyl salicylate-menthol (ICY HOT) ointment, , Topical, [...] Danya You PA, 1 packet at 01/23/24 08 rosuvastatin (CRESTOR) tablet 20 mg, 20 mg, Oral, At Bedtime, Danya You PA, 20 mg at 01/22/242135 senna-docusate (SENOKOT-S/PERICOLACE) 8.6-50 MG per tablet 1 tablet, 1 tablet, Oral, BID PRN, Danya You PA traZODone (DESYREL) tablet 100 mg, 100 mg, Oral, At Bedtime, Danya You PA, 100 mg at 01/22/242134 No current outpatient prescriptions on file. Maryse Martin, [facility] PharmD,BCPS January 23, 2024 Associated attestation - Parminder Del Angel MD - 01/23/2024 6:37 PM CDT I have reviewed your recommendations and will implement changes and/or monitor as suggested. Thank you for your help. * Plan of Care - Suraj Rivera SLP - 01/23/2024 12:18 PM CDT Railroad Car Loader Post-Acute Rehab ASSEMBLY STOCK SUPERVISOR: Discharge Plan: home with , ongoing ASSEMBLY STOCK SUPERVISOR Precautions: seizure Current Status: Hearing: WFL Vision: [...] reported vision blurrier than prior administration. Skilled ASSEMBLY STOCK SUPERVISOR services indicated to train in cognitive strategies, instruct in therapeutic activities to promote cognitive function. Other Barriers to Discharge (Family Training, etc): None from ASSEMBLY STOCK SUPERVISOR perspective * Plan of Care - Escobar [...] Ricks PT, Nicolás Kauffman OT, Suraj Rivera ASSEMBLY STOCK SUPERVISOR, Bárbara Bedolla [facility], Tamar Jeffery RD, Sameer Boothe RN, and [...] in a split-level home. 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 Depression and anxiety. No substance abuse reported. [...] evaluation. PT Goals- pending therapy evaluations today ASSEMBLY STOCK SUPERVISOR Goals- to be established this day Patient [...] to acute rehab after being transferred to [place] for seizure work up. Transferred with CGA from w/c to bed. Given reorientation to [facility]. PT did eval and gave ok for pt to be mod I in room with walker. Able to manage toileting independently after that. * Plan of Care - Jaleesa Ashford, PT - 01/22/2024 4:56 PM CDT Railroad Car Loader Post-Acute Rehab PT: Discharge Plan: home with [...] multifocal stroke (01/12). She was recently at [facility] 01/16-01/18, then admitted to hospital 01/18-01/21 for work up due to seizure at [facility], now re-admitted to [facility] for ongoing rehab. Seen for eval-hold today [...] Appointment [facility] [address] [facility] [address] [place] [phone] Denise Woodson Ra, CORPORATE STRATEGY ASSOCIATE LOGISTICS ASSOCIATE [address] [place] [address] 02/26/2024 2:15 PM CDT Therapy Visit [address] [phone] Danya You PA [address] [place] [address] [id number] Charis Chacon, [facility] [address] [place] [address] 02/26/2024 3:00 PM CDT Therapy Visit [facility] [address] [place] [phone] Danya You PA [address] [place] [address] [id number] Isabel Beaulieu, OTR [facility] [address] [place] [address] 02/27/2024 4:45 PM CDT Therapy Visit [facility] [address] [place] [phone] Danya You, PA 2450 [facility] [address] [place] [address] Vanessa Duggan, PT 03/05/2024 1:30 PM CDT Therapy Visit [address] [phone] Danya You, AMAIRANI [address] [place] [address] Isabel Beaulieu, OTR [facility] [address] [place] [address] 03/05/2024 3:15 PM CDT Therapy Visit [address] [phone] Dayna You, AMAIRANI [address] [place] [address] Charis Chacon, [facility] [address] [place] [address] 03/05/2024 4:15 PM CDT Therapy Visit [facility] [address] [place] [phone] Danya You PA [address] [place] [address] Delicia George, PT [address] [address] 03/11/2024 2:15 PM CDT Therapy Visit [address] [phone] Danya You, PA [address] [address] Isabel Beaulieu, OTR [address] [address] 03/11/2024 3:00 PM CDT Therapy Visit [address] [phone] Danya You, PA [address] [address] Charis Chacon, [facility] [address] [place] [address] 03/11/2024 4:15 PM CDT Therapy Visit [address] [phone] Danya You, PA [address] [address] Delicia George, PT [address] [address] 03/17/2024 10:00 AM CDT Office Visit [address] [phone] Denise Woodson Ra, CORPORATE STRATEGY ASSOCIATE LOGISTICS ASSOCIATE [address] [place], [place] [id number] 03/17/2024 1:30 PM CDT Therapy Visit [address] [phone] Danya You, PA [facility] [address] Isabel Beaulieu OTR [address] [address] 03/17/2024 2:30 PM CDT Therapy Visit [address] [phone] Danya You, PA [facility] [address] [address] Charis Chacon SLP [facility] [address] [place] [address] 03/17/2024 4:00 PM CDT Therapy Visit [address] [phone] Danya You, PA [address] [place] [address] Vanessa Duggan, GALINA 03/23/2024 10:30 AM CDT Office Visit [facility] [address] [place] [phone] Denise Woodson Ra, CORPORATE STRATEGY ASSOCIATE LOGISTICS ASSOCIATE [address] [place], [place] 4468568 03/26/2024 1:30 PM CDT Therapy Visit [address] [phone] Danya You, AMAIRANI [address] [address] Isabel Beaulieu, OTR [address] [address] 03/26/2024 2:30 PM CDT Therapy Visit [address] [phone] Danya You, AMAIRANI [address] [address] Charis Chacon, [facility] [address] [place] [address] 03/26/2024 3:30 PM CDT Therapy Visit [address] [phone] Danya You, PA [address] [address] Delicia George, PT [facility] [address] [place] [address] 04/02/2024 2:15 PM CDT Therapy Visit [address] [phone] Danya You, PA [address] 663524 Isabel Beaulieu, OTR [facility] [address] [place] [address] 04/02/2024 3:15 PM CDT Therapy Visit [facility] [address] [place] [phone] Danya You, AMAIRANI [address] [address] Charis Chacon, [facility] [address] [place] [address] 04/02/2024 4:15 PM CDT Therapy Visit [address] [phone] Danya You, PA [address] [address] Delicia George, PT [facility] [address] [place] [address] 04/09/2024 3:15 PM CDT Therapy Visit [address] [phone] Danya You, PA [address] [address] Charis Chacon, [facility] [address] [place] [address] 04/09/2024 4:15 PM CDT Therapy Visit [address] [phone] Danya You PA [address] [place] [address] Delicia George, PT [facility] [address] [place] [address] 04/15/2024 9:30 AM CDT Therapy Visit [facility] [address] [place] [phone] Danya You, PA [address] [place] [address] Danya Restrepo, ASSEMBLY STOCK SUPERVISOR 04/23/2024 2:30 PM CDT Therapy Visit [address] [phone] Danya You, PA [address] [place] [address] Charis Chacon, [facility] [address] [place] [address] 05/05/2024 2:30 PM CDT Office Visit [facility] [address], [address] [place] [phone] Rohit Barcenas MD 420 [facility] [address] [place] [address] 06/23/2024 11:00 AM CDT Virtual Visit [facility] & Addiction [facility] [address]01 [place] [phone] Kristin Vázquez, [facility] [address] [place] [address] 06/30/2024 2:00 PM CDT Virtual Visit [facility] 6401 [facility] [place] [phone] Gurpreet Kristin Saez, [facility] [address] [facility] [place] [phone] Scheduled Referrals Name Type Priority Associated Diagnoses Orde r Schedule Physical Therapy Anodize Machine Operator Referral Referral Routine Cerebrovascular accident (CVA), unspecified mechanism (H) Expected: 01/24/2024 (Approximate), Expires: 01/23/2025 Occupational Therapy Anodize Machine Operator Referral Referral Routine Cerebrovascular accident (CVA), unspecified mechanism (H) Expected: 01/24/2024 (Approximate), Expires: 01/23/2025 Speech Therapy Anodize Machine Operator Referral Referral Routine Cerebrovascular accident (CVA), unspecified mechanism (H) Expected: 01/24/2024 (Approximate), Expires: 01/23/2025 Adult Mental Health Anodize Machine Operator Referral Referral Routine: Next available opening Mild [...] Sasha Alvarado RN)0800 (Canceled Entry - Provider: Sahsa Alvarado RN - Comment: given early per [...] 325 mg, Oral, DAILY, First dose on Marii 01/23/24 at 0800, DO NOT CRUSH. 0836 ($Given - Provider: Jaye Maddox RN) 0809 ($Given - Provider: Jaye Maddox, GEMA) 0805 ($Given - Provider: Jaye Maddox, GEMA) cetirizine (zyrTEC) tablet 10 mg 10 mg, Oral, DAILY, First dose on Marii 01/23/24 at 0800 0836 ($Given - Provider: Jaye Maddox, GEMA) 0809 ($Given - Provider: Jaye Maddox, GEMA) 0805 ($Given - Provider: Jaye Madodx, RN) fluticasone-vilanterol (BREO ELLIPTA) 200-25 MCG/ACT inhaler [...] - Provider: Jaye Maddox RN - Comment: neck)193 (Patch/Med Removed - Provider: Ashlyn Pryor RN) [...] 2105 ($Given - Provider: Ashlyn Pryor RN) 215 ($Given - Provider: Ashlyn Pryor RN) psyllium (METAMUCIL/KONSYL) Packet 1 packet 1 packet, Oral, DAILY, First dose on Sat01/23/24 at 0800, Powder should be diluted with fluid before given. 0836 ($Given - Provider: Jaye Maddox RN) 0811 ($Given - Provider: Jaye Maddox RN) 0805 ($Given - Provider: Jaye Maddox RN) rosuvastatin (CRESTOR) tablet 20 mg 20 mg, Oral, AT BEDTIME, First dose (after last modification) on Sat01/22/24 at 2100 2104 ($Given - Provider: Ashlyn Pryor RN) 215 ($Given - Provider: Ashlyn Pryor RN) traZODone (DESYREL) tablet 100 mg 100 mg, Oral, AT BEDTIME, First dose (after last modification) on Sat01/22/24 at 2100 2104 ($Given - Provider: Ashlyn Pryor RN) 215 ($Given - Provider: Ashlyn Pryor RN) PRN [...] documented as of this encounter Care Teams Building Superintendent Relationship Specialty Start Date End Date Winston Villatoro OD [facility] [address] [place] [address] PCP - Ophthalmology Ophthalmology 02/11/13 Denise Woodson Ra, APRN LOGISTICS ASSOCIATE [address] [place] [address] PCP - General Family Practice 09/21/20 Denise Woodson Ra, APRN LOGISTICS ASSOCIATE [address] [place] [address] Assigned PCP 07/17/20 Usha Simon APRN LOGISTICS ASSOCIATE [address] [facility] [id number] [place] [address] Nurse Practitioner Neurological Surgery 01/24/24 documented as of this encounter
--- OUTSIDE RECORDS SUMMARY | 2024-02-22 15:24 | XMS_ITS | Encounter Summary ---
Author Organization [facility] Address [address] [place] [address]. [place] [address] Care Team Providers Care Podiatrist Name Role Phone Winston Villatoro Se OD Unavailable [phone] Denise Woodson Ra, APRN ELECTRICAL MAINTENANCE MAN Unavailable +- [phone] Denise Woodson Ra, APRN ELECTRICAL MAINTENANCE MAN Primary Care Provid er Usha Simon APRN ELECTRICAL MAINTENANCE MAN Unavailable + [phone] Dangelo Salinas MD Unavailable Encounter Details Date [...] Info) Description 02/26/2024 1:40 PM CDT Appointment [facility] Imaging [address] [facility] [address] [place] [address] Denise Woodson Ra CLINICAL NURSE REVIEWER ELECTRICAL MAINTENANCE MAN [address] [place] [address] 02/26/2024 2:15 PM CDT Therapy Visit [facility] 150 [place] [phone] Danya You, PA [address] [place] [address] Charis Chacon, JUAN [facility] [address] [place] [address] 02/26/2024 3:00 PM CDT Therapy Visit [address] [phone] Danya You, AMAIRANI [address] [place], [place] 285064 Isabel Beaulieu OTR FV [address] [address] 02/27/2024 4:45 PM CDT Therapy Visit [address] [phone] Danya You, PA 2450 [facility] 213 [place], [place] 129814 Vanessa Duggan, PT 03/05/2024 1:30 PM CDT Therapy Visit [address] [phone] Danya You, AMAIRANI [address] [facility] [facility] [address] [place] [address] Isabel Beaulieu OTR [address] [address] 03/05/2024 3:15 PM CDT Therapy Visit [address] [phone] Danya You, AMAIRANI 2450 [facility] [address] [address] Charis Chacon SLP [facility] [address] [place] [address] 03/05/2024 4:15 PM CDT Therapy Visit [address] [phone] Danya You, PA 2450 [facility] [address] [address] Delicia George, PT [facility] [address] [place] [address] 03/11/2024 2:15 PM CDT Therapy Visit [address] [phone] Danya You, PA 2450 [facility] [address] [address] Isabel Beaulieu OTR [address] [address] 03/11/2024 3:00 PM CDT Therapy Visit [address] [phone] Danya You PA 2450 [facility] [address] [address] Charis Chacon, JUAN [facility] [address] [place] [address] 03/11/2024 4:15 PM CDT Therapy Visit [address] [phone] Danya You, PA [address] 098444 Delicia George, PT [facility] [address] [address] 03/17/2024 10:00 AM CDT Office Visit [facility] [address] [place] [phone] Denise Woodson Ra, CLINICAL NURSE REVIEWER ELECTRICAL MAINTENANCE MAN [address] [place], [place] [phone] 03/17/2024 1:30 PM CDT Therapy Visit [address] [phone] Danya You, PA [facility] [address] [address] Isabel Beaulieu, OTR [address] [address] 03/17/2024 2:30 PM CDT Therapy Visit [address] [phone] Danya You, PA 4730 [facility] [address] [address] Charis Chacon, [facility] [address] [place] [address] 03/17/2024 4:00 PM CDT Therapy Visit [facility] 150 [place] [phone] Danya You, PA [address] [place], [place] 603334 Vanessa Duggan, PT 03/23/2024 10:30 AM CDT Office Visit [facility] [address] [place] [address] Denise Woodson Ra, CLINICAL NURSE REVIEWER ELECTRICAL MAINTENANCE MAN [address] [place], [place] 93623[address] 03/26/2024 1:30 PM CDT Therapy Visit [facility] [address] [place] [address] Danya You, PA [address] [place], [place] 718[address] Isabel Beaulieu, OTR [facility] 150 [place] [address] 03/26/2024 2:30 PM CDT Therapy Visit [facility] [address] [place] [phone] Danya You, PA [address] [place] [address] Charis Chacon, [facility] [address] [place] [address] 03/26/2024 3:30 PM CDT Therapy Visit [facility] [address] [place] [phone] Danya You, AMAIRANI [address] [address] Delicia George, PT [address] [address] 04/02/2024 2:15 PM CDT Therapy Visit [address] [phone] Danya You, AMAIRANI [address] [address] Isabel Beaulieu, OTJah [address] [address] 04/02/2024 3:15 PM CDT Therapy Visit [address] [phone] Danya You, PA [facility] [address] [address] Charis Chacon, J[facility]AN [facility] [address] [place] [address] 04/02/2024 4:15 PM CDT Therapy Visit [address] [phone] Danya You, PA [address] [address] Delicia George, PT [place] [phone] [place] [address] 04/09/2024 3:15 PM CDT Therapy Visit [address] [address] Danya You, PA [address] [place] [address] Charis Chacon, SUPERVISOR COIN MACHINE [facility] [address] [place] [address] 04/09/2024 4:15 PM CDT Therapy Visit [address] [phone] Danya You, PA [address] [place] [address] Delicia George, PT [facility] [address] [place] [address] 04/15/2024 9:30 AM CDT Therapy Visit [address] [phone] Danya You, PA [address] [address] Danya Restrepo, SUPERVISOR COIN MACHINE 04/23/2024 2:30 PM CDT Therapy Visit [address] [phone] Danya You, PA [address] [place] [address] Charis Chacon, J[facility] [address] [place] [address] 05/05/2024 2:30 PM CDT Office Visit [facility] [address], [address] [place] [phone] Rohit Barcenas MD [address] [place] [address] 295 [place], [place] 8[address] 06/23/2024 11:00 AM CDT Virtual Visit [facility] & Addiction [facility] [address]01 [place] [address] Kristin Vázquez, [facility] 6341 [place] [phone] 06/30/2024 2:00 PM CDT Virtual Visit [facility] [address] [place] [address] Kristin Vázquez, [facility] [address] [place] [phone] documented as of this encounter Visit Diagnoses Not on filedocumented in this encounter Additional Health Concerns Assessment Noted Time PHQ-9 Depression Total Score: 0 06/23/20 21 4:11 PM CDT documented as of this encounter Care Teams Podiatrist Relationship Specialty Start Date End Date Winston Villatoro OD [facility] [place] [address] [facility] [address] [place] [id number] PCP - Ophthalmology Ophthalmology 02/11/13 Denise Woodson Ra, CLINICAL NURSE REVIEWER ELECTRICAL MAINTENANCE MAN [address] [address] [place] [id number] PCP - General Family Practice 09/21/20 Denise Woodson Ra, APRN ELECTRICAL MAINTENANCE MAN [address] [facility] [address] Assigned PCP 07/17/20 Usha Simon APRN ELECTRICAL MAINTENANCE MAN [address]09 [facility], [place] [address] Nurse Practitioner Neurological Surgery 01/24/24 Dangelo Salinas MD [address] [facility] [address] [facility] [address] [place], [place] [id number] Neurology 01/27/24 documented as of this encounter
--- OUTSIDE RECORDS SUMMARY | 2024-02-22 15:24 | XMS_ITS | Encounter Summary ---
Author Organization [place] Address [address] [place] [address] Care Team Providers Care Home Health Care Physician Name Role Phone Winston Villatoro OD Unavailable Denise Woodson Ra, APRN INSPECTOR FINISHING Unavailable +- [phone] Denise Woodson Ra MANAGER PRODUCT INSPECTOR FINISHING Primary Care Provid er Usha Simon APRN INSPECTOR FINISHING Unavailable +- [phone] Dangelo Salinas MD Unavailable Usha Simon APRN INSPECTOR FINISHING Unavailable +- [phone] Anastasia Stearns RN Unavailable [phone] Germaine Lopez CHW Unavailable [phone] Reason for Visit * Reason Onset Date Comments Appointment 01/23/2024 Referral-Stroke hospital follow up Encounter Details Date Type Department Care Team (Late st Contact Info) Description 01/23/2024 Telephone [facility] Neurology Clinic [address] 3rd [place] [address] None Appointment (Referral-Stroke hospital follow [...] encounter Miscellaneous Notes * Telephone Encounter - Yuli Bassetthan - 01/23/2024 1:33 PM CDT [facility] Call Center Phone Message May a detailed message be left on voicemail: yes Reason for Call: Appointment Intake Referring Provider Name: Dr. Delisa Manuel Ur 5 Med Surg Diagnosis and/or Symptoms: Stroke Please review referral for Stroke as no HFU orders are entered for Stroke follow up. Patient discharged on 01/22/24 from [facility] and is now in Acute Rehab Unit. Action Taken: Message routed to: [facility] Neurology Travel Screening: Not Applicable documented in this encounter Plan of Treatment Upcoming Encounters Date Type Department Care Team (Late st Contact Info) Description 02/26/2024 1:40 PM CDT Appointment [facility] Imaging [address] [place] [phone] Denise Woodson Ra, MANAGER PRODUCT INSPECTOR FINISHING [address] [place] [address] 02/26/2024 2:15 PM CDT Therapy Visit [address] [phone] Danya You PA [address] [place], [place] [address] Charis Chacon SLP [facility] [address] [place] [address] 02/26/2024 3:00 PM CDT Therapy Visit [address] [phone] Danya You PA [address] [place] [address] Isabel Beaulieu, OTR [facility]V [facility] [place] [address] [facility] [address] 02/27/2024 4:45 PM CDT Therapy Visit [facility] [address] [place] [phone] Danya You, PA [address] [address] Vanessa Duggan, PT 03/05/2024 1:30 PM CDT Therapy Visit [facility] 150 [place] [address] Danya You, AMAIRANI [address] [address] Isabel Beaulieu, OTR [facility] 150 [place] [address] 03/05/2024 3:15 PM CDT [facility] 150 [place] [address] Danya You, PA [address] [address] Charis Chacon SLP [facility] [address] [place] [address] 03/05/2024 4:15 PM CDT Therapy Visit [facility] 150 [place] [phone] Danya You, AMAIRANI [address] [address] Delicia George, PT [facility] CENTER [address] [place] [address] 03/11/2024 2:15 PM CDT Therapy Visit [address] [phone] Danya You, PA [address] [address] Isabel Beaulieu OTR [address] [address] 03/11/2024 3:00 PM CDT Therapy Visit [address] [phone] Danya You, PA [address] [address] Charis Chacon, JUAN [facility] [address] [place] [address] 03/11/2024 4:15 PM CDT Therapy Visit [address] [phone] Danya You, PA [address] [address] Delicia George, PT [facility] CENTER [address] [place] [address] 03/17/2024 10:00 AM CDT Office Visit [address] [place] [address] Denise Woodson Ra, MANAGER PRODUCT INSPECTOR FINISHING [address] [place], [place] [address] 03/17/2024 1:30 PM CDT Therapy Visit [address] [phone] Danya You, PA [address] [place] [address] Isabel Beaulieu OTR [address] [address] 03/17/2024 2:30 PM CDT Therapy Visit [address] [address] Danya You, PA [address] [address] Charis Chacon, JUAN [facility] [address] [place] [address] 03/17/2024 4:00 PM CDT Therapy Visit [address] [phone] Danya You, PA [address] 845[address] Vanessa Duggan, PT 03/23/2024 10:30 AM CDT Office Visit [facility] [address] [place] [address] Denise Woodson Ra, MANAGER PRODUCT INSPECTOR FINISHING [address] [place] [address] 03/26/2024 1:30 PM CDT Therapy Visit [address] [phone] Danya oYu, AMAIRANI [address] [place] [address] Isabel Beaulieu, OTR [address] [address] 03/26/2024 2:30 PM CDT Therapy Visit [address] [phone] Danya You, PA [address] [place] [address] Charis Chacon, JUAN [facility] [address] [place] [address] 03/26/2024 3:30 PM CDT Therapy Visit [address] [phone] Danya You, PA [address] [place] [address] Delicia George, PT [facility] [address] [place] [address] 04/02/2024 2:15 PM CDT Therapy Visit [address] [phone] Danya You, PA [address] [address] Isabel Beaulieu, OTR [address] [address] 04/02/2024 3:15 PM CDT Therapy Visit [address] [phone] Danya You, PA [address] [address] Charis Chacon, JUAN [facility] [address] [place] [address] 04/02/2024 4:15 PM CDT Therapy Visit [address] [phone] Danya You, PA [address] [address] Delicia George, PT [facility] [address] [address] 04/09/2024 3:15 PM CDT Therapy Visit [address] [phone] Danya You, PA [address] 45[address] Charis Chacon, JUAN [facility] [address] [place] [address] 04/09/2024 4:15 PM CDT Therapy Visit [address] [address] Danya You, PA [address] [place] [address] Delicia George, PT [facility] [address] [place] [address] 04/15/2024 9:30 AM CDT Therapy Visit [address] [address] Danya You, PA [address] [address] Danya Restrepo, CLEANER AND TRIMMER 04/23/2024 2:30 PM CDT Therapy Visit [address] [phone] Danya You, PA [address] [place] [address] [address] Charis Chacon, J[facility]AN [facility] [address] [place] [address] 05/05/2024 2:30 PM CDT Office Visit [facility] Epilepsy Care [address], [address] [place] [phone] Rohit Barcenas MD 420 [facility] 295 [place] [address] 06/23/2024 11:00 AM CDT Virtual Visit [facility] Mental Health & Addiction [facility] [address] [place] [phone] Kristin Vázquez, [facility] [address] [place] [phone] 06/30/2024 2:00 PM CDT Virtual Visit [facility] Mental Health & Addiction [facility] [address] [place] [phone] Gurpreet Kristin Saez, [facility] [address] [place] [address] documented as of this encounter Visit Diagnoses Not on filedocumented in this encounter Additional Health Concerns Assessment Noted Time PHQ-9 Depression Total Score: 0 06/23/20 21 4:11 PM CDT documented as of this encounter Care Teams Home Health Care Physician Relationship Specialty Start Date End Date Winston Villatoro, OD [facility] [place] [address] [place] [address] PCP - Ophthalmology Ophthalmology 02/11/13 Denise Woodson Ra, APRN INSPECTOR FINISHING [address] [place] [address] PCP - General Family Practice 09/21/20 Denise Woodson Ra, APRN INSPECTOR FINISHING [address] [place] [address] Assigned PCP 07/17/20 Usha Simon APRN INSPECTOR FINISHING 9 [facility]2121CJ [place] [address] Nurse Practitioner Neurological Surgery 01/24/24 Dangelo Salinas MD [address] [place] [address] Neurology 01/27/24 Usha Simon APRN INSPECTOR FINISHING 9 [facility] SR2391MK [place] [address] Assigned Neuroscience Provider 02/06/24 Anastasia Stearns, RN Lead Voip Network Technician 02/06/24 Germaine Lopez, W Community Health Worker Primary Care - CC 02/18/24 documented as of this encounter
--- OUTSIDE RECORDS SUMMARY | 2024-02-22 15:24 | XMS_ITS | Encounter Summary ---
Author Organization [place] Address [address] [place] [address] Care Team Providers Care Bar Tacker Name Role Phone Winston Villatoro OD Unavailable [phone] Denise Woodson Ra, APRN CLICKING MACHINE OPERATOR Unavailable [phone]- [phone] Denise Woodson Ra, APRN CLICKING MACHINE OPERATOR Primary Care Provid er Usha Simon APRN CLICKING MACHINE OPERATOR Unavailable [phone]- [phone] Dangelo Salinas MD Unavailable Encounter Details Date Type Department Care Team (Late st Contact Info) Description 01/27/2024 [facility] Neurology Clinic [address] [address] None Social History Tobacco Use Types [...] encounter Miscellaneous Notes * Telephone Encounter - Nina Shawna - 01/27/2024 11:59 AM CDT Left Voicemail (1st Attempt) and Sent Mychart (1st Attempt) for the patient to call back and schedule the following: Appointment type: New Stroke Provider: Dr. Hoyos Return date: Next avail Specialty phone number: [phone] Additional appointment(s) needed: N/A Additonal Notes: In Basket documented in this encounter Plan of Treatment Upcoming Encounters Date Type Department Care Team (Late st Contact Info) Description 02/26/2024 1:40 PM CDT Appointment [facility] Imaging [address] [place] [phone] Denise Woodson Ra, SPEECH AND LANGUAGE SPECIALIST CLICKING MACHINE OPERATOR [address] [place] [address] 02/26/2024 2:15 PM CDT Therapy Visit [address] [phone] Danya You, PA [address] [place], [place] [address] Charis Chacon, [facility] [address] [place] [address] 02/26/2024 3:00 PM CDT Therapy Visit [address] [phone] Danya You, PA 24[address] [facility] [address] [address] Isabel Beaulieu, [facility] 150 [place] [address] 02/27/2024 4:45 PM CDT Therapy Visit [address] [phone] Danya You PA [address] [place] [address] Vanessa Duggan, PT 03/05/2024 1:30 PM CDT Therapy Visit [facility] 150 [place] [address] Danya You, AMAIRANI 2450 [facility] [address] [address] Isabel Beaulieu, OTR [address] [address] 03/05/2024 3:15 PM CDT Therapy Visit [address] [phone] Danya You, AMAIRANI [facility] [address] [address] Charis Chacon, [facility] [address] [place] [address] 03/05/2024 4:15 PM CDT Therapy Visit [address] [phone] Danya You, AMAIRANI [facility] [address] [address] Delicia George, PT [facility] [place] [address] [place] [address] 03/11/2024 2:15 PM CDT Therapy Visit [address] [phone] Danya You, PA 2450 [facility] 213 [place] [address] Isabel Beaulieu, OTR [facility] 150 [place] [address] 03/11/2024 3:00 PM CDT Therapy Visit [address] [phone] Danya You, PA [address] [address] Charis Chacon, JUAN [facility] [address] [place] [address] 03/11/2024 4:15 PM CDT Therapy Visit [address] [phone] Danya You, PA [address] 8[address] Delicia George, PT [facility] [address] [place] [address] 03/17/2024 10:00 AM CDT Office Visit [facility] [address] [place] [address] Denise Woodson Ra, SPEECH AND LANGUAGE SPECIALIST [facility] [address] [place] [address] 03/17/2024 1:30 PM CDT Therapy Visit [address] [phone] Danya You PA [facility] [address] [address] Isabel Beaulieu OTR [address] [address] 03/17/2024 2:30 PM CDT Therapy Visit [address] [phone] Danya You, AMAIRANI [address] [place] [address] Charis Chacon, J[facility]AN [facility] [address] [place] [address] 03/17/2024 4:00 PM CDT Therapy Visit [address] [phone] Danya You, PA [address] [place] [address] Vanessa Duggan, PT 03/23/2024 10:30 AM CDT Office Visit [facility] [address] [place] [address] Denise Woodson Ra, SPEECH AND LANGUAGE SPECIALIST [facility] [address] [place] [address] 03/26/2024 1:30 PM CDT Therapy Visit [address] [phone] Danya You PA [address] [place] [address] Isabel Beaulieu OTR [facility] 150 [facility] [place] [address] 03/26/2024 2:30 PM CDT Therapy Visit [facility] [place] 150 [facility] [place] [address] Danya You, PA [address] [address] Charis Chacon, [facility] [address] [place] [address] 03/26/2024 3:30 PM CDT Therapy Visit [facility] [address] [place] [address] Danya You, PA [address] [address] Delicia George, PT [facility] [place] 577739 [place] [address] 04/02/2024 2:15 PM CDT Therapy Visit [facility] [address] [place] [address] Danya You, PA 2450 [facility] 213 [place] [address] Isabel Beaulieu, OTR [facility] 150 [place] [address] 04/02/2024 3:15 PM CDT Therapy Visit [facility] [address] [place] [address] Danya You, PA [address] [place] [address] Charis Chacon, J[facility]AN [facility] [address] [place] [address] 04/02/2024 4:15 PM CDT Therapy Visit [address] [address] Danya You PA [address] [place] [address] Delicia George, PT [address] [address] 04/09/2024 3:15 PM CDT Therapy Visit [address] [address] Danya You PA [address] [place] [address] Charis Chacon, JUAN [facility] [address] [place] [address] 04/09/2024 4:15 PM CDT Therapy Visit [address] [address] Danya You PA [address] [place] [address] Delicia George, PT [address] [address] 04/15/2024 9:30 AM CDT Therapy Visit [facility] 150 [place] [address] Danya You, PA [address] [place] [address] Danya Restrepo, EXECUTIVE VP 04/23/2024 2:30 PM CDT Therapy Visit M [facility] 150 [place] [address] Danya You, PA [address] [place] [address] Charis Chacon, J[facility]AN [facility] [address] [place] [address] 05/05/2024 2:30 PM CDT Office Visit [facility] Epilepsy [facility] [address], [address] [place] [address] Rohit Barcenas MD 420 [facility] 295 [place] [address] 06/23/2024 11:00 AM CDT Virtual Visit [facility] Mental Health & Addiction [facility] [place] [address] [place] [address] Kristin Vázquez, [facility] [address] [place] [address] 06/30/2024 2:00 PM CDT Virtual Visit [facility] Mental [facility] Addiction [facility] [address] [place] [address] Kristin Vázquez, [facility] [address]1 [place] [address] documented as of this encounter Visit Diagnoses Not on filedocumented in this encounter Additional Health Concerns Assessment Noted Time PHQ-9 Depression Total Score: 0 06/23/20 21 4:11 PM CDT documented as of this encounter Care Teams Bar Tacker Relationship Specialty Start Date End Date Winston Villatoro OD [facility] [place] [address] [place] [address] PCP - Ophthalmology Ophthalmology 02/11/13 Denise Woodson Ra, APRN CLICKING MACHINE OPERATOR [address] [place] [address] PCP - General Family Practice 09/21/20 Denise Woodson Ra, APRN CLICKING MACHINE OPERATOR [address] [place] [address] Assigned PCP 07/17/20 Usha Simon APRN CLICKING MACHINE OPERATOR 9 [facility], [place] [address] Nurse Practitioner Neurological Surgery 01/24/24 Dangelo Salinas MD [address] [place] [address] Neurology 01/27/24 documented as of this encounter
--- OUTSIDE RECORDS SUMMARY | 2024-02-22 15:25 | XMS_ITS | Encounter Summary ---
Author Organization [facility] Address [address] [place] [address]. [place] [address] Care Team Providers Care Wind Plant Manager Name Role Phone Yung Madrigal MD Unavailable Unavailable Winston Villatoro OD Unavailable [phone] Denise Woodson Ra, APRN ASSURANCE SENIOR Unavailable [phone] Denise Woodson Ra PRESSURE CONTROL SUPERVISOR ASSURANCE SENIOR Primary Care Provid er Usha Simon APRN ASSURANCE SENIOR Unavailable +- [phone] Dangelo Salinas MD Unavailable Usha Simon APRN ASSURANCE SENIOR Unavailable + [phone] Anastasia Stearns RN Unavailable [phone] Germaine Lopez CHW Unavailable [phone] Encounter Details Date Type Department Care Team (Late st Contact Info) Description 06/13/2021 [facility] Medical [facility] [address] [place] [address] Denise Woodson Ra, APRN ASSURANCE SENIOR [address] [place] [address] Insomnia, unspecified type Social History [...] a refill on file. Prescription approved per [facility] protocol. Mary Caraballo RN on 06/13/2021 at 5:18 PM documented in this encounter Plan of Treatment Upcoming Encounters Date Type Department Care Team (Late st Contact Info) Description 02/26/2024 1:40 PM CDT Appointment [facility] [address] [place] [address] Denise Woodson Ra, PRESSURE CONTROL SUPERVISOR ASSURANCE SENIOR [address] [place] [address] 02/26/2024 2:15 PM CDT Therapy Visit [address] [phone] Danya You, PA [address] [place] [address] Charis Chacon, [facility] [address] [place] [address] 02/26/2024 3:00 PM CDT Therapy Visit [address] [phone] Danya You PA [address] [place] [address] Isabel Beaulieu OTR [address] [place] [address] 02/27/2024 4:45 PM CDT Therapy Visit [facility] 150 [place] [address] Danya You, PA [address] [place], [place] [address] Vanessa Duggan, PT 03/05/2024 1:30 PM CDT Therapy Visit [address] [phone] Danya You, AMAIRANI 2450 [facility] [address] [address] Isabel Beaulieu OTJah [address] [address] 03/05/2024 3:15 PM CDT Therapy Visit [address] [phone] Danya You, PA Critical access hospital0 [facility] [address] [address] Charis Chacon, [facility] [address] [place] [address] 03/05/2024 4:15 PM CDT Therapy Visit [address] [phone] Danya You, PA [address] [place], [place] [address] Delicia George, PT [address] [address] 03/11/2024 2:15 PM CDT Therapy Visit [address] [address] Danya You, PA [address] [address] Isabel Beaulieu, OTR [address] [address] 03/11/2024 3:00 PM CDT Therapy Visit [address] [phone] Danya You, PA [address] [address] Charis Chacon, [facility] [address] [place] [address] 03/11/2024 4:15 PM CDT Therapy Visit [address] [phone] Danya You, PA [address] [place] [address] Delicia George, PT [facility] [address] [place] [address] 03/17/2024 10:00 AM CDT Office [facility] [address] [place] [phone] Denise Woodson Ra, PRESSURE CONTROL SUPERVISOR [facility] [address] [place] [address] 03/17/2024 1:30 PM CDT Therapy Visit [address] [address] Danya You, PA [address] [place] [address] Isabel Beaulieu, OTR [address] [address] 03/17/2024 2:30 PM CDT Therapy Visit [address] [address] Danya You, PA 8890 [facility] 213 [place] [address] Charis Chacon, [facility] [address] [place] [address] 03/17/2024 4:00 PM CDT Therapy Visit [address] [address] Danya You, PA 2450 [facility] [address] [address] Vanessa Duggan, PT 03/23/2024 10:30 AM CDT Office Visit [facility] [address] [place] [address] Denise Woodson Ra, PRESSURE CONTROL SUPERVISOR [facility] [address] [place], [place] [address] 03/26/2024 1:30 PM CDT Therapy Visit [address] [place] [address] Danya You PA [address] 746[address] Isabel Beaulieu, OTR [facility] 150 [place] [address] 03/26/2024 2:30 PM CDT Therapy Visit [facility] [address] [place] [address] Danya You, AMAIRANI 2450 [facility] [address] [address] Charis Chacon, [facility] [address] [place] [address] 03/26/2024 3:30 PM CDT Therapy Visit [facility] [address] [place] [address] Danya You, AMAIRANI Critical access hospital0 [address] [address] Delicia George, PT [facility] [address] [place] [address] 04/02/2024 2:15 PM CDT Therapy Visit [facility] 150 [place] [address] Danya You, AMAIRANI Critical access hospital0 [address] [address] Isabel Beaulieu, [facility] [address] [place] [address] 04/02/2024 3:15 PM CDT Therapy Visit [address] [phone] Danya You PA [address] [place] [address] Charis Chacon SLP [facility] [address] [place] [address] 04/02/2024 4:15 PM CDT Therapy Visit [address] [address] Danya You, PA [address] [address] Delicia George, PT [facility] [address] [place] [address] 04/09/2024 3:15 PM CDT Therapy Visit [address] [phone] Danya You PA [address] [address] Charis Chacon, [facility] [address] [place] [address] 04/09/2024 4:15 PM CDT Therapy Visit [address] [address] Danya You PA [address] [place] [address] Delicia George, PT [facility] 9[address] [place] [address] 04/15/2024 9:30 AM CDT Therapy Visit [facility] 150 [place] [address] Danya You, PA [address] [place] [address] 213 [place] [address] Danya Restrepo, FISH FARM MANAGER 04/23/2024 2:30 PM CDT Therapy Visit M [address] [address] Danya You, PA [address] [place] [address] 213 [place] [address] Charis Chacon, FISH FARM MANAGER [facility] [address] [place] [address] 05/05/2024 2:30 PM CDT Office Visit [facility] Epilepsy Care [address] [facility], [address] [place] [phone] Rohit Barcenas MD [address] [place] [address] 295 [place] [address] 06/23/2024 11:00 AM CDT Virtual Visit [facility] Mental Health & Addiction [facility] 6401 [place] [phone] Kristin Vázquez, [facility] 6341 [place] [address] 06/30/2024 2:00 PM CDT Virtual Visit [facility] Mental Health & Addiction [facility] [address] [place] [address] Kristin Vázquez, [facility] [address] [facility] [place] [phone] documented as of this encounter Visit Diagnoses Diagnosis Insomnia, unspecified type documented in this encounter Additional Health Concerns Assessment Noted Time PHQ-9 Depression Total Score: 0 01/05/20 21 9:31 AM CDT documented as of this encounter Care Teams Wind Plant Manager Relationship Specialty Start Date End Date Yung Madrigal MD RETIRED PCP - Orthopaedics Orthopedics 08/26/12 01/20/24 Winston Villatoro, [facility] [address] [facility] [address] [place] [address] PCP - Ophthalmology Ophthalmology 02/11/13 Denise Woodson Ra, APRN ASSURANCE SENIOR [address] [place] [address] PCP - General Family Practice 09/21/20 Denise Woodson Ra, APRN ASSURANCE SENIOR [address] [place] [address] Assigned PCP 07/17/20 Usha Simon APRN ASSURANCE SENIOR [address] [facility] [id number] [place], [place] 45[address] Nurse Practitioner Neurological Surgery 01/24/24 Dangelo Salinas MD [address] [place] [address] Neurology 01/27/24 Usha Simon APRN ASSURANCE SENIOR [address] [facility] [id number] [place] [address] Assigned Neuroscience Provider 02/06/24 Anastasia Stearns, RN Lead [employer] Tractor Operator 02/06/24 Germaine Lopez, W Community Health Worker Primary Care - CC 02/18/24 documented as of this encounter
--- OUTSIDE RECORDS SUMMARY | 2024-02-22 15:25 | XMS_ITS | Encounter Summary ---
Author Organization [facility] Address [address] [place] [address]. [place] [address] Care Team Providers Care Patient Support Tech Name Role Phone Yung Madrigal MD Unavailable Unavailable Winston Villatoro OD Unavailable [phone] Denise Woodson Ra, APRN HEMATOLOGY NURSE Unavailable +- [phone] Denise Woodson Ra SENIOR SAS DEVELOPER HEMATOLOGY NURSE Primary Care Provid er Usha Simon APRN HEMATOLOGY NURSE Unavailable + [phone] Dangelo Salinas MD Unavailable Usha Simon APRN HEMATOLOGY NURSE Unavailable + [phone] Anastasia Stearns RN Unavailable [phone] Germaine Lopez CHW Unavailable [phone] Reason for Visit * Reason Comments Medication Refill Encounter Details Date Type Department Care Team (Late st Contact Info) Description 01/07/2023 Refill [facility] [address] [place] [address] Denise Woodson Ra, APRN HEMATOLOGY NURSE [address] [place] [address] Medication Refill Social History Tobacco [...] Letter as final attempt to schedule. Karla Gross Director Of Manufacturing Operations * Telephone Encounter - Karla Morales - 01/17/2023 8:59 AM CDT LVM requesting a call back for an appt (physical). One more attempt will be made. Karla Gross Director Of Manufacturing Operations * Telephone Encounter - Arianna Lo - 01/10/2023 3:33 PM CDT Sent [employer] message requesting a call back for an appt. Two more attempts will be made. Arianna Gross Director Of Manufacturing Operations * Telephone Encounter - Leslie Mcclellan RN [...] 0 0 0 Leslie Mcclellan RN, BSN [facility] documented in this encounter Plan of Treatment Upcoming Encounters Date Type Department Care Team (Late st Contact Info) Description 02/26/2024 1:40 PM CDT Appointment [facility] [place] [facility] [address] [place] [phone] Denise Woodson Ra, SENIOR SAS DEVELOPER HEMATOLOGY NURSE [address] [place] [address] 02/26/2024 2:15 PM CDT Therapy Visit [address] [place] [address] [phone] Danya You, AMAIRANI [address] [place] [address] Charis Chacon, AUTO SERVICE WRITER [facility] [address] [place] [address] 02/26/2024 3:00 PM CDT Therapy Visit [address] [place] [address] [phone] Danya You, PA [address] [place], [place] [address] Isabel Beaulieu, OTJah [facility] 150 [place] [address] 02/27/2024 4:45 PM CDT Therapy Visit [address] [phone] Danya You, PA [address] [place] [address] Vanessa Duggan, PT 03/05/2024 1:30 PM CDT [facility] [address] [place] [address] Danya You PA [address] [address] Isabel Beaulieu, OTR [facility] 150 [place] [address] 03/05/2024 3:15 PM CDT Therapy Visit [facility] 150 [place] [address] Danya You, AMAIRANI [facility] [address] [address] Charis Chacon, [facility] [address] [place] [address] 03/05/2024 4:15 PM CDT Therapy Visit [facility] 150 [place] [address] Danya You, AMAIRANI [facility] [address] [address] Delicia George, PT [facility] [address] [place] [address] 03/11/2024 2:15 PM CDT Therapy Visit [facility] 150 [place] [address] Danya You PA [facility] [address] [address] Isabel Beaulieu, OTR [facility] [address] [place] [address] 03/11/2024 3:00 PM CDT Therapy Visit [address] [phone] Danya You, PA [address] [address] Charis Chacon, J[facility] [address] [place] [address] 03/11/2024 4:15 PM CDT Therapy Visit [address] [phone] [place] [address] [address]78[address] Delicia George, PT [facility] [address] [place] [address] 03/17/2024 10:00 AM CDT Office Visit [facility] [address] [place] [phone] Denise Woodson Ra, SENIOR SAS DEVELOPER [facility] [address] [place], [place] [address] 03/17/2024 1:30 PM CDT Therapy Visit [address] [phone] [place] [address] 296724 Isabel Beaulieu, JAIMIE [address] [address] 03/17/2024 2:30 PM CDT Therapy Visit [address] [address] Danya You, PA 2450 [facility] 213 [place] [address] Charis Chacon, [facility] [address] [place] [address] 03/17/2024 4:00 PM CDT Therapy Visit [address] [address] [place] [address] [address] Vanessa Duggan, PT 03/23/2024 10:30 AM CDT Office Visit [facility] [address] [place] [address] Denise Woodson Ra, SENIOR SAS DEVELOPER [facility] [address] [place], [place] [address] 03/26/2024 1:30 PM CDT Therapy Visit [address] [address] [place] [address] [address] Isabel Beaulieu, OTJah [address] [address] 03/26/2024 2:30 PM CDT Therapy [place] [address] [place] [address] Danya You PA [address] [place], [place] [address] Charis Chacon SLP [facility] [address] [place] [address] 03/26/2024 3:30 PM CDT Therapy Visit [facility] 150 [place] [address] Danya You, AMAIRANI [address] [place] [address] Delicia George, PT [facility] [address] [address] 04/02/2024 2:15 PM CDT Therapy Visit [facility] 150 [place] [address] Danya You, PA [address] [place] [address] Isabel Beaulieu, OTR [facility] 150 [place] [address] 04/02/2024 3:15 PM CDT Therapy Visit [facility] 150 [place] [address] Danya You, AMAIRANI [address] [place] [address] Charis Chacon, [facility] [address] [place], [place] [address] 04/02/2024 4:15 PM CDT Therapy Visit [address] [address] Danya You PA [address] [place] [address] Delicia George, PT [address] [address] 04/09/2024 3:15 PM CDT Therapy Visit [address] [address] Danya You, AMAIRANI [address] [address] Charis Chacon, AUTO SERVICE WRITER [facility] [address] [place] [address] 04/09/2024 4:15 PM CDT Therapy Visit [address] [address] Danya You, PA [address] [place] [address] Delicia George, PT [address] [address] 04/15/2024 9:30 AM CDT Therapy Visit [address] [address] Danya You PA [address] [address] Danya Restrepo, AUTO SERVICE WRITER 04/23/2024 2:30 PM CDT Therapy Visit [facility] 150 [place] [address] Danya You, PA 2450 [facility] 213 [place] [address] Charis Chacon, [facility] [address] [place] [address] 05/05/2024 2:30 PM CDT Office Visit M [facility] Epilepsy [facility] [address], [address] [place] [address] Rohit Barcenas MD 420 [facility] 295 [place] [address] 06/23/2024 11:00 AM CDT Virtual Visit [facility] Mental Health & Addiction [facility] [place] [address] Kristin Vázquez, [facility] [address] [place] [address] 06/30/2024 2:00 PM CDT Virtual Visit [facility] Mental Health & Addiction [facility] [address]01 [place] [address] Kristin Vázquez, [facility] 5641 [place] [address] documented as of this encounter Visit Diagnoses Diagnosis Moderate persistent asthma without complication Unspecified asthma documented in this encounter Additional Health Concerns Assessment Noted Time PHQ-9 Depression Total Score: 0 06/23/20 21 4:11 PM CDT documented as of this encounter Care Teams Patient Support Tech Relationship Specialty Start Date End Date Yung Madrigal MD RETIRED PCP - Orthopaedics Orthopedics 08/26/12 01/20/24 Winston Villatoro OD [facility] Elsie [address] [place] [address] PCP - Ophthalmology Ophthalmology 02/11/13 Denise Woodson Ra, APRN HEMATOLOGY NURSE [address] [address] [facility] [place] [address] PCP - General Family Practice 09/21/20 Denise Woodson Ra, APRN HEMATOLOGY NURSE [address] [place] [address] Assigned PCP 07/17/20 Usha Simon APRN HEMATOLOGY NURSE [address] [address] Nurse Practitioner Neurological Surgery 01/24/24 Dangelo Salinas MD [address] [place] [address] Neurology 01/27/24 Usha Simon APRN HEMATOLOGY NURSE [address] [address] Assigned Neuroscience Provider 02/06/24 Anastasia Stearns, RN Lead Border Inspector 02/06/24 Germaine Lopez, W Community Health Worker Primary Care - CC 02/18/24 documented as of this encounter
--- OUTSIDE RECORDS SUMMARY | 2024-02-22 15:25 | XMS_ITS | Encounter Summary ---
Author Organization [place] Address [address] [place] [address] Care Team Providers Care 3Rd Mate Name Role Phone Yung Madrigal MD Unavailable Unavailable Winston Villatoro OD Unavailable [phone] Denise Woodson Ra, APRN TIMBER ESTIMATOR Unavailable + [phone] Denise Woodson Ra FRONT OFFICE ASSISTANT TIMBER ESTIMATOR Primary Care Provid er Usha Simon FRONT OFFICE ASSISTANT TIMBER ESTIMATOR Unavailable + [phone] Dangelo Salinas MD Unavailable Usha Simon APRN TIMBER ESTIMATOR Unavailable + [phone] Anastasia Stearns RN Unavailable [phone] Germaine Lopez CHW Unavailable +[phone] Encounter Details Date Type Department Care Team (Late st Contact Info) Description 01/22/2022 [facility] [address] [address] Angelo Escobar Social History Tobacco [...] PM CDT Appointment [facility] Imaging [address] [place] [phone] Denise Woodson Ra, FRONT OFFICE ASSISTANT TIMBER ESTIMATOR [address] [place] [address] 02/26/2024 2:15 PM CDT Therapy Visit [address] [phone] Danya You PA [address] MB [address] [place] [address] Charis Chacon, [facility] [address] [place] [address] 02/26/2024 3:00 PM CDT Therapy Visit [address] [phone] Danya You, AMAIRANI Muller0 [facility] [facility] [address] [place] [address] Isabel Beaulieu, [facility] [address] [place] [address] 02/27/2024 4:45 PM CDT Therapy Visit [address] [phone] Danya You PA [address] MB [address] [place] [address] [place] [address] Vanessa Duggan, PT 03/05/2024 1:30 PM CDT Therapy Visit [address] [phone] Danya You, PA [address] [address] Isabel Beaulieu, OTR [address] [address] 03/05/2024 3:15 PM CDT Therapy Visit [address] [phone] Danya You, PA [facility] [address] [address] Charis Chacon, [facility] [address] [place] [address] 03/05/2024 4:15 PM CDT Therapy Visit [address] [phone] Danya You, PA [address] [address] Delicia George, PT [facility] [place] [address] [place] [address] 03/11/2024 2:15 PM CDT Therapy Visit [address] [phone] Danya You, PA [address] [place] [address] Isabel Beaulieu OTJah [address] [address] 03/11/2024 3:00 PM CDT Therapy Visit [address] [phone] Danya You, AMAIRANI [address] [address] Charis Chacon, [facility] [address] [place] [address] 03/11/2024 4:15 PM CDT Therapy Visit [address] [phone] Danya You PA [address] [address] Delicia George, PT [facility] [address] [place] [address] 03/17/2024 10:00 AM CDT Office Visit [facility] [address] [place] [address] Denise Woodson Ra, FRONT OFFICE ASSISTANT [facility] [address] [place] [address] 03/17/2024 1:30 PM CDT Therapy Visit [address] [phone] Danya You PA [facility] [address] [address] Isabel Beaulieu, OTR [facility] [address] [place] [address] 03/17/2024 2:30 PM CDT Therapy Visit [address] [phone] Danya You, PA [address] [address] Charis Chacon, [facility] [address] [place] [address] 03/17/2024 4:00 PM CDT Therapy Visit [address] [phone] Danya You, PA [address] [place] [address] Vanessa Duggan, PT 03/23/2024 10:30 AM CDT Office Visit [facility] [address] [place] [address] Denise Woodson Ra, FRONT OFFICE ASSISTANT TIMBER ESTIMATOR [address] [place], [place] 90[address] 03/26/2024 1:30 PM CDT Therapy Visit [address] [phone] Danya You, PA [address] 9[address] Isabel Beaulieu, OTR [facility] [address] [place] [address] 03/26/2024 2:30 PM CDT Therapy Visit [facility] [address] [place] [address] Danya You, PA [address] [place] [address] Charis Chacon, [facility] [address] [place] [address] 03/26/2024 3:30 PM CDT Therapy Visit [address] [phone] Danya You, AMAIRANI [address] [place] [address] Delicia George, PT [facility] [address] [place] [address] 04/02/2024 2:15 PM CDT Therapy Visit [address] [phone] Danya You, PA [address] [place] [address] Isabel Beaulieu, OTR VALAR[facility] WRANGELL[facility] [address] [place] [address] 04/02/2024 3:15 PM CDT Therapy Visit [facility] [address] [place] [address] Danya You, PA [address] [place] [address] Charis Chacon, [facility] [address] [place] [address] 04/02/2024 4:15 PM CDT Therapy Visit [address] [address] Danya You, PA [address] [place] [address] Delicia George, PT [address] [address] 04/09/2024 3:15 PM CDT Therapy Visit [address] [address] Danya You, PA [address] [place] [address] Charis Chacon, [facility] [place] [address] [place] [address] 04/09/2024 4:15 PM CDT Therapy Visit [address] [address] Danya You, PA [address] [place] [address] Delicia George, PT [address] [address] 04/15/2024 9:30 AM CDT Therapy Visit [facility] [address] [place] [address] Danya You, PA [address] [place] [address] Danya Restrepo KITCHEN CLERK 04/23/2024 2:30 PM CDT Therapy Visit [facility] 150 [place] [address] Danya You, PA [address] [place] [address] Charis Chacon, [facility] [address] [place] [address] 05/05/2024 2:30 PM CDT Office Visit [facility] Epilepsy [facility] [address], [address] [place] [address] Rohit Barcenas MD 420 [facility] [address] [place] [address] 06/23/2024 11:00 AM CDT Virtual Visit [facility] [address] [address] Kristin Vázquez, [facility] [address] [place] [address] 06/30/2024 2:00 PM CDT Virtual Visit [facility] [address] [place] [address] Kristin Vázquez, [facility] [address] [place] [address] documented as of this encounter Visit Diagnoses Not on filedocumented in this encounter Additional Health Concerns Assessment Noted Time PHQ-9 Depression Total Score: 0 06/23/20 21 4:11 PM CDT documented as of this encounter Care Teams 3Rd Mate Relationship Specialty Start Date End Date Yung Madrigal MD RETIRED PCP - Orthopaedics Orthopedics 08/26/12 01/20/24 Winston Villatoro OD [facility] [place] [address] [place] [address] PCP - Ophthalmology Ophthalmology 02/11/13 Denise Woodson Ra, APRN TIMBER ESTIMATOR [address] [place] [address] PCP - General Family Practice 09/21/20 Denise Woodson Ra, APRN TIMBER ESTIMATOR [address] [place] [address] Assigned PCP 07/17/20 Usha Simon APRN TIMBER ESTIMATOR [address] [place] [address] [id number] Nurse Practitioner Neurological Surgery 01/24/24 Dangelo Salinas MD [address] [address] Neurology 01/27/24 Usha Simon APRN TIMBER ESTIMATOR [address] [address] Assigned Neuroscience Provider 02/06/24 Anastasia Stearns RN Lead Industrial Maintenance Mechanic 02/06/24 Germaine Lopez, W Community Health Worker Primary Care - CC 02/18/24 documented as of this encounter
--- OUTSIDE RECORDS SUMMARY | 2024-02-22 15:25 | XMS_ITS | Encounter Summary ---
Author Organization [place] Address [address] [place] [address]. [place] [address] Care Team Providers Care Plant [employer] Machinery Valuer Name Role Phone Winston Villatoro OD Unavailable [phone] Denise Woodson Ra, APRN SUPERVISOR BUFFING AND PASTING Unavailable [phone] Denise Woodson Ra, APRN SUPERVISOR BUFFING AND PASTING Primary Care Provid er Reason for Visit * Auth/Cert Specialty Diagnoses / Procedures Referred By Nila shah Referred To Contact Med Surg Diagnoses seizure-like activity Ur [address] [place] [address] Referral ID Status Reason Start Date Expiration Date Visits Re quested Visits Authorized [id number] 1 1 Encounter Details Date Type Department Care Team (Late st Contact Info) Description 01/21/2024 8:30 AM CDT Ancillary Procedure [facility] EEG [facility] [place] [place] [address] Kev Ansari MD [address] [place] [address] [address] [place] [address] Anahy Jamil MD [address] [place] [address] Social History Tobacco Use Types Packs/Day Years [...] 02/26/2024 1:40 PM CDT Appointment [facility] Imaging [address] [place] [phone] Denise Woodson Ra, COLD PRESS LOADER SUPERVISOR BUFFING AND PASTING [address] [facility] [place] [address] 02/26/2024 2:15 PM CDT Therapy Visit [address] [phone] Danya You, AMAIRANI SOTO [address] [place] [address] Charis Chacon, PICTURE FRAME MAKER [facility] [address] [place] [address] 02/26/2024 3:00 PM CDT Therapy Visit [address] [phone] Danya You, AMAIRANI Muller0 [facility] [address] [place] [address] Isabel Beaulieu OTR [facility] [address] [place] [address] 02/27/2024 4:45 PM CDT Therapy Visit [address] [phone] Danya You PA [address] MB [address] [place] [address] Vanessa Duggan, PT 03/05/2024 1:30 PM CDT Therapy Visit [address] [phone] Danya You, PA [address] [address] Isabel Beaulieu, OTR [address] [address] 03/05/2024 3:15 PM CDT Therapy Visit [address] [phone] Danya You, PA [address] [address] Charis Chacon, PICTURE FRAME MAKER [facility] [address] [place] [address] 03/05/2024 4:15 PM CDT Therapy Visit [address] [phone] Danya You, PA [address] [address] Delicia George, PT [facility] [place] [address] [place] [address] 03/11/2024 2:15 PM CDT Therapy Visit [address] [address] Danya You, PA 2450 [facility] [address] [address] Isabel Beaulieu OTR [address] [address] 03/11/2024 3:00 PM CDT Therapy Visit [address] [phone] Danya You PA 2450 [facility] [address] [address] Charis Chacon, JUAN [facility] [address] [place] [address] 03/11/2024 4:15 PM CDT Therapy Visit [address] [phone] Danya You PA [facility] [place] [address] [address] Delicia George, PT [facility] [address] [place] [address] 03/17/2024 10:00 AM CDT Office Visit [facility] [address] [place] [address] Denise Woodson Ra, COLD PRESS LOADER SUPERVISOR BUFFING AND PASTING [address] [place], [place] [address] 03/17/2024 1:30 PM CDT Therapy Visit [address] [phone] Danya You PA [address] [place] [address] Isabel Beaulieu, OTR [facility] [address] [place] [address] 03/17/2024 2:30 PM CDT Therapy Visit [address] [phone] Danya You, PA [address] [address] Charis Chacon, [facility] [address] [place] [address] 03/17/2024 4:00 PM CDT Therapy Visit [address] [phone] Danya You, PA [address] [place] [address]88[address] Vanessa Duggan, PT 03/23/2024 10:30 AM CDT Office Visit [facility] [address] [place] [address] Denise Woodson Ra, COLD PRESS LOADER SUPERVISOR BUFFING AND PASTING [address] [place] [address] 03/26/2024 1:30 PM CDT Therapy Visit [address] [phone] Danya You, PA [address] [address] Isabel Beaulieu, OTR [facility] [address] [place] [address] 03/26/2024 2:30 PM CDT Therapy Visit [facility] [address] [place] [address] Danya You, PA [address] [place] [address] Charis Chacon, [facility] [address] [place] [address] 03/26/2024 3:30 PM CDT Therapy Visit [address] [phone] Danya You, PA [address] [place] [address] Delicia George, PT [facility] [address] [place] [address] 04/02/2024 2:15 PM CDT [facility] [address] Danya You, PA [address] [place] [address] Isabel Beaulieu, OTJah [facility] [address] [place] [address] 04/02/2024 3:15 PM CDT Therapy Visit [facility] [address] [place] [address] Danya You, PA [address] [place] [address] Charis Chacon SLP [facility] [address] [place] [address] 04/02/2024 4:15 PM CDT Therapy Visit [address] [address] Danya You, PA [address] [facility] [place] [address] Delicia George, PT [address] [address] 04/09/2024 3:15 PM CDT Therapy Visit [address] [address] Danya You, PA [address] [place] [address] Charis Chacon, J[facility] [address] [place] [address] 04/09/2024 4:15 PM CDT Therapy Visit [address] [address] Danya You, PA [address] [place] [address] Delicia George, PT [address] [address] 04/15/2024 9:30 AM CDT Therapy Visit [facility] [address] [place] [address] Danya You, PA [address] [place] [address] Danya Restrepo, PICTURE FRAME MAKER 04/23/2024 2:30 PM CDT Therapy Visit [facility] [address] [place] [address] Danya You, PA [address] [place] [address] Charis Chacon, [facility] [address] [place] [address] 05/05/2024 2:30 PM CDT Office Visit [facility] Epilepsy [facility] [address], [address] [place] [address] Rohit Barcenas MD 420 [facility] [address] [place], [place] [address] 06/23/2024 11:00 AM CDT Virtual Visit [facility] [place] [address] [place] [address] Kristin Vázquez, [facility] [address] [place] [address] 06/30/2024 2:00 PM CDT Virtual Visit [facility] [address]01 [place] [phone] Kristin Vázquez, [facility] [address] [place] [address] documented as of this encounter Procedures Procedure Name Priority Date/Time Associated Diagnosis Comments EEG VIDEO 2-12 HRS UNMONITORED Routine 01/21/2024 12:15 PM CDT documented in this encounter Results * EEG Video 2-12 HRS Ummonitored (01/21/2024 12:15 PM CDT) Narrative [facility] - 01/21/2024 3:06 PM CDT EEG Video 2-12 HRS Ummonitored Result VIDEO EEG DATE: 01/21/2024 VIDEO EEG [id number] VIDEO EEG DAY#: 1 VIDEO EEG SOURCE [...] documented as of this encounter Care Teams Plant And Machinery Valuer Relationship Specialty Start Date End Date Winston Villatoro OD [facility] [employer] [address] [place] [address] PCP - Ophthalmology Ophthalmology 02/11/13 Denise Woodson Ra, APRN SUPERVISOR BUFFING AND PASTING [address] [address] PCP - General Family Practice 09/21/20 Denise Woodson Ra, APRN SUPERVISOR BUFFING AND PASTING [address] [address] Assigned PCP 07/17/20 documented as of this encounter
--- OUTSIDE RECORDS SUMMARY | 2024-02-22 15:25 | XMS_ITS | Encounter Summary ---
Author Organization [employer] Address [address] [place] [address] Care Team Providers Care Event Specialist Food Demonstrator Name Role Phone Yung Madrigal MD Unavailable Unavailable Winston Villatoro OD Unavailable [phone] Denise Woodson Ra, APRN REGISTERED PHARMACIST Unavailable + [phone] Denise Wodoson Ra SENIOR STAFF CONSULTANT REGISTERED PHARMACIST Primary Care Provid er Usha Simon SENIOR STAFF CONSULTANT REGISTERED PHARMACIST Unavailable + [phone] Dangelo Salinas MD Unavailable Usha Simon APRN REGISTERED PHARMACIST Unavailable + [phone] Anastasia Stearns RN Unavailable [phone] Germaine Lopez CHW Unavailable [phone] Encounter Details Date Type Department Care Team (Late Contact Info) Description 01/10/2023 [facility] [address] [address] Arianna Lo Social History Tobacco [...] Info) Description 02/26/2024 1:40 PM CDT Appointment [facility] [address] [place] [phone] Denise Woodson Ra, SENIOR STAFF CONSULTANT REGISTERED PHARMACIST [address] [facility] [place] [address] 02/26/2024 2:15 PM CDT Therapy Visit [facility] [address] [place] [phone] Danya You, AMAIRANI [address] [place], [place] [address] Charis Chacon, JUAN [facility] [address] [place] [address] 02/26/2024 3:00 PM CDT Therapy Visit [facility] [address] [place] [phone] Danya You PA [address] [place] [address] [id number] Isabel Beaulieu, OTJah [facility] [address] [place] [address] 02/27/2024 4:45 PM CDT Therapy Visit [facility] [address] [place] [phone] Danya You PA [address] [place], [place] [id number] Vanessa Duggan, PT 03/05/2024 1:30 PM CDT Therapy Visit [facility] [address] [place] [address] Danya You PA [address] [place] [address] [place] [address] Isabel Beaulieu, OTR [facility] [address] [place] [address] 03/05/2024 3:15 PM CDT Therapy Visit [facility] [address] [place] [address] Danya You, AMAIRANI [address] [address] Charis Chacon, [facility] [address] [place] [address] 03/05/2024 4:15 PM CDT Therapy Visit [facility] [address] [place] [phone] Danya You, AMAIRANI [address] [address] Delicia George, PT [facility] [address] [place] [address] 03/11/2024 2:15 PM CDT Therapy Visit [facility] [address] [place] [phone] Danya You, AMAIRANI [address] [place] [address] [place] [address] Isabel Beaulieu, OTR [facility] [address] [place] [address] 03/11/2024 3:00 PM CDT Therapy Visit [facility] [address] [place] [address] [place] [address] [place] [address] Charis Chacon, [facility] [address] [place] [address] 03/11/2024 4:15 PM CDT Therapy Visit [address] [phone] [place] [address] [place] [address] 203444 Delicia George, PT [facility] [address] [place] [address] 03/17/2024 10:00 AM CDT Office Visit [facility] [address] [place] [phone] Denise Woodson Ra, SENIOR STAFF CONSULTANT REGISTERED PHARMACIST [address] [place], [place] [phone] 03/17/2024 1:30 PM CDT Therapy Visit [address] [phone] [place] [address] [place] [address] Isabel Beaulieu OTJah [address] [address] 03/17/2024 2:30 PM CDT Therapy Visit [facility] [address] [place] [address] Danya You, AMAIRANI [address] [facility] [address] [place] [address] Charis Chacon, [facility] [address] [place] [address] 03/17/2024 4:00 PM CDT Therapy Visit [address] [phone] Danya You, PA [address] [facility] [address] [place] [address] Vanessa Duggan, PT 03/23/2024 10:30 AM CDT Office Visit [facility] [address] [place] [address] Denise Woodson Ra, SENIOR STAFF CONSULTANT [facility] [address] [place], [place] [phone] 03/26/2024 1:30 PM CDT Therapy Visit [address] [phone] Danya You, AMAIRANI [facility] [address] [address] Isabel Beaulieu, JAIMIE [facility] [address] [place] [address] 03/26/2024 2:30 PM CDT Therapy Visit [address] [phone] Danya You PA [address] [place] [address] Charis Chacon SLP [facility] [address] [place] [address] 03/26/2024 3:30 PM CDT Therapy Visit [facility] [address] [place] [phone] Danya You, PA [address] [place], [place] [address] Delicia George, PT [facility] [address] [address] 04/02/2024 2:15 PM CDT Therapy Visit [facility] [address] [place] [address] Danya You, PA [address] [place] [address] Isabel Beaulieu, OTR [facility] [address] [place] [address] 04/02/2024 3:15 PM CDT Therapy Visit [facility] [address] [place] [phone] Danya You, PA [address] [place] [address] [id number] Charis Chacon, [facility] [address] [place] [address] 04/02/2024 4:15 PM CDT Therapy Visit [address] [phone] Danya You, AMAIRANI [address] [address] Delicia George, PT [address] 7[address] 04/09/2024 3:15 PM CDT Therapy Visit [address] [phone] Danya You, PA [facility]0 [address] [address] Charis Chacon, [facility] [address] [place] [address] 04/09/2024 4:15 PM CDT Therapy Visit [address] [phone] Danya You, PA [address] [place] [address] Delicia George, PT [address] [address] 04/15/2024 9:30 AM CDT Therapy Visit [address] [phone] Danya You PA [facility] [address] [address] Danya Restrepo, VISUAL MERCHANDISE MANAGER 04/23/2024 2:30 PM CDT Therapy Visit [facility] [place] [facility] 150 [facility] [place] [phone] Danya You, PA [address] [place] [address] Charis Chacon, [facility] [address] [place] [address] 05/05/2024 2:30 PM CDT Office Visit [facility] Ep[facility] [address], [address] [place] [phone] Rohit Barcenas MD [address] [facility] [address] [place] [address] 06/23/2024 11:00 AM CDT Virtual Visit [facility] [address] [place] [phone] Kristin Vázquez, [facility] [address] [place] [phone] 06/30/2024 2:00 PM CDT Virtual Visit [facility] [address] [place] [phone] Kristin Vázquez, [facility] [address] [place] [phone] documented as of this encounter Visit Diagnoses Not on filedocumented in this encounter Additional Health Concerns Assessment Noted Time PHQ-9 Depression Total Score: 0 06/23/20 21 4:11 PM CDT documented as of this encounter Care Teams Event Specialist Food Demonstrator Relationship Specialty Start Date End Date Yung Madrigal MD RETIRED PCP - Orthopaedics Orthopedics 08/26/12 01/20/24 Winston Villatoro, OD [facility] [place] [address] [place] [address] PCP - Ophthalmology Ophthalmology 02/11/13 Denise Woodson Ra, APRN REGISTERED PHARMACIST [address] [place] [address] PCP - General Family Practice 09/21/20 Denise Woodson Ra, APRN REGISTERED PHARMACIST [address] [place] [address] Assigned PCP 07/17/20 Usha Simon APRN REGISTERED PHARMACIST [address] [place] [address] Nurse Practitioner Neurological Surgery 01/24/24 Dangelo Salinas MD [address] [place] [address] Neurology 01/27/24 Usha Simon APRN REGISTERED PHARMACIST [address] [place] [address] Assigned Neuroscience Provider 02/06/24 Anastasia Stearns, RN Lead Crime Prevention Worker 02/06/24 Germaine Lopez, CHW Community Health Worker Primary Care - CC 02/18/24 documented as of this encounter
--- OUTSIDE RECORDS SUMMARY | 2024-02-22 15:25 | XMS_ITS | Encounter Summary ---
Author Organization [facility] Address [address] [place] [address] Care Team Providers Care Nuclear Fuels Reclamation Engineer Name Role Phone Yung Madrigal MD Unavailable Unavailable Winston Villatoro OD Unavailable [phone] Denise Woodson Ra, APRN LANGUAGE TRANSLATOR Unavailable [phone] Denise Woodson Ra, APRN, CNP Primary Care Provid er Reason for Referral * Consultation (Routine: Next available opening) - Pending Review Specialty Diagnoses / Procedures Referred By Contlandon t Referred To Contact Diagnoses Seizure-like activity (H) History of seizure Cerebrovascular accident (CVA), unspecified mechanism (H) Delisa Manuel MD [address] [place] [address] Referral ID Status Reason Start Date Expiration Date V isits Requested Visits Authorized [id number] Pending Review 01/22/2024 01/21/2025 1 1 Question Answer Reason for Referral: Stroke Scheduling Instructions: [facility] will call you to coordinate your care as prescribed by your provider. If you don't hear from a electronics parts sales representative within 2 business days, please call . Additional Information: Recommended to follow up with stroke neurology AND epileptology within 2 months of ARU discharge. Comments Please be aware that coverage of these services is subject to the terms and limitations of your health insurance plan. Call member services at your health plan with any benefit or coverage questions. [facility] will call you to coordinate your care as prescribed by your provider. If you don't hear from a electronics parts sales representative within 2 business days, please call . Reason for Visit * Auth/Cert Specialty Diagnoses / Procedures Referred By Nila shah Referred To Contact Med Surg Diagnoses seizure-like activity Ur 5 Med Surg [facility] [place] [address] Referral ID Status Reason Start Date Expiration Date Visits Re quested Visits Authorized [id number] 1 1 Encounter Details Date Type Department Care Team (Late st Contact Info) Description 01/19/2024 11:16 PM CDT - 01/22/2024 2:19 PM CDT Hospital Encounter [facility] Med Surg [address] [place] [phone] Luis Reynolds DO [address] [place] [id number] Anahy Jamil MD [address] [place] [address] [id number] Jeevan Sheth MD [address] [place] [address] [id number] Fibromyalgia (Primary Dx); Pain of right upper [...] Manuel MD - 01/22/2024 1:11 PM CDT [facility] Discharge Summary - Medicine & Pediatrics Date of Admission: 01/19/2024 Date of Discharge: 01/22/2024 Discharging Provider: Dr. Jeevan Sheth Discharge Service: [facility] Medicine Service Discharge Diagnoses Seizure-like activity [...] discharge - referral placed. Follow up with [facility] Interventional neuroradiology after ARU discharge for [...] clonic seizure, witnessed (01/13) Witnessed seizure 01/13 Nathalie Morgan. Initiated on Keppra. Suspected acute related to [...] for questions. - Seizure precautions - Continue LEAD MASSAGE THERAPIST Keppra 750 mg BID - If recurrent [...] therapy. Progressing well in PT/OT. Cleared by MANAGER PROGRESSIVE CARE. Given etiology of recent stroke suspected to be atypical clot formation, patient was initiated on Lovenox for DVT prophylaxis at ARU. Reasonable to continue during admission. - Return to ARU - Follow hypercoagulability workup: - Tests pending from [facility], 01/14 (see [place] summary): Factor V, anti- cardiolipin IgG, IgM, IgA - Tests pending from [facility], 01/20: factor II gene mutation, Lupus anticoagulant, Cardiolipin [...] but would like to transition cares to [facility]. 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 - Hydroxyzine PRN - Work form completed Chronic/Stable: # History of ASD, repaired: Per chart, has Amplatz septal occluder device in place. # Insomnia - LEAD MASSAGE THERAPIST Atarax 50 mg at bedtime - LEAD MASSAGE THERAPIST Trazodone 100 mg at bedtime # Asthma - LEAD MASSAGE THERAPIST Breo Ellipta qday # Constipation - LEAD MASSAGE THERAPIST Magnesium oxide 400 mg at bedtime - [...] Sheth. MD [facility] MED SURG [facility] [id number] Physical Exam Vital Signs: Temp: 97.8 ??F [...] Physician Denise Woodson Discharge Orders Adult Neurology Cull Grader Referral Follow Up and recommended labs and tests Follow up with primary care provider within 7-10 days of ARU discharge. Follow up with neurology within 2 months of ARU discharge - referral placed. Follow up with [facility] Interventional neuroradiology after ARU discharge for [...] LFT's: Recent Labs Lab Test 07/27/21 0857 01/04/21 0918 AST 8 10 ALT 18 18 [...] interpretation and I agree with the findings. 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 Outside CTA report for 01/09/2024 obtained through Care Everywhere. TECHNIQUE: Using a 3D hkcl-oq-xlmyzo image acquisition technique, MRA of the major [...] (40 mg) Subcutaneous every 24hours . Start 01/21 PM, Transitional hydrOXYzine HCl (ATARAX) 50 MG [...] tablet 3 07/27/2021 BREO ELLIPTA 200-25 MCG/INH InhalerIndications:Mod erate persistent asthma without complication INHALE 1 PUFF INTO THE LUNGS DAILY 3 each 1 02/22/2022 senna-docusate (SENOKOT-S/PERICOLACE) 8.6-50 MG tabletIndications:Othe r constipation Take 2 tablets by mouth 2 times daily as needed for constipation 01/22/2024 aspirin (ASA) 325 MG EC tabletIndications:Cere brovascular accident (CVA), unspecified mechanism (H) Take 1 tablet (325 mg) by mouth daily 30 tablet 01/24/2024 02/14/2024 calcium carbonate (TUMS) 500 MG chewable tabletIndications:Naus ea Take 1 tablet (500 mg) by mouth 4 times daily as needed for heartburn 01/22/2024 02/06/2024 hydrOXYzine HCl (ATARAX) 50 MG tabletIndications:Gene ralized anxiety disorder Take 0.5-1 tablets (25-50 mg) by mouth every 6 hours as needed for anxiety or other (sleep) 60 tablet 01/24/2024 02/06/2024 levETIRAcetam (KEPPRA) 750 MG tabletIndications:Hist ory of seizure Take 1 tablet (750 mg) by mouth 2 times daily 60 tablet 01/24/2024 02/14/2024 rosuvastatin (CRESTOR) 20 MG tabletIndications:Cere brovascular accident (CVA), unspecified mechanism (H) Take 1 tablet (20 mg) by mouth at bedtime 30 tablet 01/24/2024 02/14/2024 acetaminophen (TYLENOL) 325 MG tabletIndications:Fibr omyalgia,Pain of [...] as of this encounter Progress Notes * Torrison, Luciano, MD - 01/22/2024 12:21 PM CDT [facility] Neurology Progress Note Patient Name: Alcon [...] Result VIDEO EEG DATE: 01/21/2024 VIDEO EEG [id number] VIDEO EEG DAY#: 1 VIDEO EEG SOURCE [...] not hesitate to call withquestions/concerns (consult pager [phone]). Choco Cerrato MD Registration Clerk of Neurology [facility] * Fabi De Leon RN - [...] Neuro to see patient after lunch Per [facility] if Neuro can put in note and DC orders and Summary can be completed they can do a 2PM rollover. Above information conveyed to Iveth's team. Patient will be 2 PM rollover to [facility] Patient, Bedside RN notified Maritza BARBOSA RN [facility] 5MS [phone] Nurse Coordinator Securely message with [facility] Med [facility] RNCC * Jaleesa Ashford PT - 01/21/2024 2:44 PM CDT 01/21/24 1402 Signing Clinician's Name / Credentials Signing clinician's name / credentials Jaleesa Ashford PT, DPT Functional Gait Assessment (Edward Vargas, Yanna Quinones, [...] stroke = 4.2 according to Thiberny & Stephanieschel 2009 Minimal Detectable Change for patients with [...] independence and safety with ambulation. 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 Baseline IND with all mobility and ADLs/IADLs. [...] included;patient Clinical Impression Comments Pt presents from ARU for work up of seizure, with recent [...] Evaluation Time PT Eval, Moderate Complexity Minutes (45733) 30 (includes time for FGA, see separate [...] dynamic activities to improve functional performance Minutes (43237) 15 Symptoms Noted During/After Treatment Fatigue Treatment [...] 01/13, will benefit from intensive therapies at ARU to optimize recovery of mobility & independence [...] with the Plan: Yes Referrals Placed by CM/GUILLERMO: Internal Clinic Care Coordination Private pay costs [...] PM: Spoke with Janna in admissions at ARU. They can accept patient tomorrow for a tentative roll over at 12pm pending there are no issues with patients EEG. Results are still pending. Updated Iveths team. Will meet with patient shortly at bedside to update her as well. Care management continues to follow. Accepted: [facility] [address] [place] [address] P: [phone] F: [phone] L[address] Oliva, OPERATING ROOM MANAGER 5 Med Surg Sewing Machine Operator [facility] Pager: [phone] * Airam Jay MD - 01/21/2024 6:42 AM CDT [facility] Progress Note - [facility] Family Medicine Service Date of Admission: 01/19/2024 [...] for vEEG - Seizure precautions - Continue LEAD MASSAGE THERAPIST Keppra 750 mg BID - If recurrent [...] therapy. Progressing well in PT/OT. Cleared by MANAGER PROGRESSIVE CARE. Consults: - Neurology consulted; appreciate recommendations - [...] but would like to transition cares to [facility]. - [facility] Interventional Neuroradiology referral at discharge # DVT prophylaxis Given etiology of recent stroke suspected to be atypical clot formation, patient was initiated on Lovenox for DVT prophylaxis at ARU. Reasonable to continue during admission. - Lovenox daily # Anxiety # Depression # Psychosocial stressors Reports understandable stress given recent events. Denied SI/HI. Coping admirably. 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 - Continue quality assurance technician support - Work form Chronic/Resolved/Stable: # History of ASD, repaired Per chart, has Amplatz septal occluder device in place. # Insomnia - LEAD MASSAGE THERAPIST Atarax 50 mg at bedtime - LEAD MASSAGE THERAPIST Trazodone 100 mg at bedtime # Asthma - LEAD MASSAGE THERAPIST Breo Ellipta qday # Constipation - LEAD MASSAGE THERAPIST Magnesium oxide 400 mg at bedtime - [...] Physician, Dr. Jamil . Airam Jay MD [facility] Securely message with Generic Media (more info) Text page via [facility] Paging/Directory See signed in provider for [...] CN II-XII intact. Symmetric 5/5 strength for pediatric medical assistant strength and hip extension. Psych: Mood appropriate [...] (from the past 24 hour(s)) MRA Brain ([facility] [facility]) wo Contrast Narrative EXAM MRA BRAIN ([facility] [facility]) W/O CONTRAST 01/20/2024 6:50 PM HISTORY: Multifocal CVA 01/12 with seizure like activity 01/18; Neuro rec'd repeat MRI to rule out recurrent CVA COMPARISON: No images. Outside CTA report for 01/09/2024 obtained through Care Everywhere. TECHNIQUE: Using a 3D kptc-xs-arzaol image acquisition technique, MRA of the major [...] Jay MD - 01/20/2024 7:26 AM CDT [facility] Progress Note - [facility] Date of Admission: 01/19/2024 [...] recommendations Management: - Seizure precautions - Continue LEAD MASSAGE THERAPIST Keppra 750 mg BID - If recurrent [...] therapy. Progressing well in PT/OT. Cleared by MANAGER PROGRESSIVE CARE. Continues to have right-sided weakness with complex, [...] but would like to transition cares to [facility]. - Neurology consulted; appreciate recommendations - Confirm Lovenox for DVT ppx with PharmD # Anxiety # Depression # Psychosocial stressors Reports understandable stress given recent events. Denied SI/HI. Coping admirably. 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 - Continue quality assurance technician support Chronic/Stable # History of ASD, repaired Per chart, has Amplatz septal occluder device in place. # Insomnia - LEAD MASSAGE THERAPIST Atarax 50 mg at bedtime - LEAD MASSAGE THERAPIST Trazodone 100 mg at bedtime # Asthma - LEAD MASSAGE THERAPIST Breo Ellipta qday # Constipation - LEAD MASSAGE THERAPIST Magnesium oxide 400 mg at bedtime - [...] Physician, Dr. Jamil . Airam Jay MD [facility] Securely message with Generic Media (more info) Text page via [facility] Paging/Directory See signed in provider for [...] worried about prognosis. 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 Symmetric 5/5 strength for pediatric medical assistant strength and hip extension. Psych: Mood appropriate [...] the vertex were obtained without intravenous contrast. Data Entry Representative (topogram) image(s) also obtained and reviewed. FINDINGS: [...] Call MD - 01/20/2024 12:40 AM CDT [facility] History and Physical - [facility] Medicine Service Date of Admission: 01/19/2024 Assessment [...] hospital Initial post-stroke seizures noted 01/[address] [facility] and was given Keppra load with IV ativan to abort seizure. [facility] recommended starting Keppra 750 BID and follow up outpatient. She was admitted on 01/17/2024 to [facility] for acute inpatient rehabilitation. Rapid response [...] seizures. - Neurology consult, appreciate recs - LEAD MASSAGE THERAPIST Keppra 750 mg BID - If seizure [...] # Headaches, frontal Patient was seen by [facility] interventional neuroradiology for diagnostic catheter cerebral angiogram for left sided pulsatile tinnitus. 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, parietal lobes and left supramarginal gyrus, neurology believed embolic in nature, likely procedural complication. PT, OT, MANAGER PROGRESSIVE CARE recommended therapies in a acute inpatient rehabilitation [...] appreciate recs - Consider hypercoagulation workup per [facility] while inpatient (factor V Leiden, factor IIgene mutation, Lupus anticoagulant, Cardiolipin antibody) Chronic/Stable # Insomnia Patient reports good relief with atarax for anxiety/insomnia in addition to her trazodone. Patient has been tolerating this regimen well during her hospital stay. Due to atarax's interaction leading to enhance COMPLAINT INSPECTOR depressant effect. Willing to provide atarax once overnight and will reassess in the morning. - Atarax 50 mg once, day team to consider scheduling if needed - Trazodone 100 mg at bedtime # Asthma - LEAD MASSAGE THERAPIST Breo Ellipta qday # Bowel: States current [...] Physician, Dr. Sheth . Kun Call MD [facility] Securely message with [place] info) Text page via [facility] Paging/Directory See signed in provider for up to date coverage information Chief Complaint Post-stroke seizures History is obtained from the patient History of Present Illness Alcon Zamora is a 48 year old female with past medical history of Lizy-Danlos syndrome, mild persistent asthma, anxiety and depression, fibromyalgia presented for a planned catheter angiogram at [facility] for left sided pulsatile tinnitus on 01/09/24, found to have multiple acute ischemic infarcts of the frontal lobes, parietal lobes and left supramarginal gyrus after procedure with associated right sided weakness and numbness, likely embolic in nature secondary to procedure complication, complicated by post-stroke seizures, admitted on 01/17/2024 at [facility] for acute inpatient rehabilitation complicated by [...] exclude dural AVF. Patient was seen by [facility] interventional neuroradiology for diagnostic catheter [...] limiting. Patient recommended to be admitted to [facility] medicine for neurology consult. During my encounter, patient mentions having an electric shock like sensation to her right chest which last about a few seconds and then goesaway. She also endorses frontal headaches. Otherwise she denies any chest pain, SOB, nausea, vomiting, abdominal pain, lower extremity swelling or tenderness. GREENHOUSE OR NURSERY TRANSPLANTER workup: -Ct head w/o: pending -CMP, CBC [...] Past Surgical History: Procedure Laterality Date C NATURAL SCIENCE MANAGER PROCEDURE DATE: vag del. C NATURAL SCIENCE MANAGER PROCEDURE DATE: 2000 tubal ligation C NATURAL SCIENCE MANAGER PROCEDURE DATE: 1994 D&C CARDIAC SURGERY 06/2006 heart defect repair ESOPHAGOSCOPY, GASTROSCOPY, DUODENOSCOPY (EGD), COMBINED N/A 02/08/2021 Procedure: ESOPHAGOGASTRODUODENOSCOPY (EGD); Surgeon: Tuan Miller MD; Location: GI GI SURGERY 09/2020 gallbladder removed HC KNEE SCOPE,MED/LAT MENISECTOMY 08/04/13 LT HEART CATH, CLOSURE ATRIAL SEPTAL DEFECT 06/20/06 amplatzer septal occluder- serial #[id number] RW NATURAL SCIENCE MANAGER (ABSTRACTED) pneumonia several times SURGICAL PATHOLOGY EXAM [...] 50 MCG/ACT nasal spray No No Sig: [place] 2 sprays into both nostrils daily traZODone [...] in this encounter Consult Notes * Nisa Haines MSW - 01/20/2024 3:54 PM CDTAssociated Order(s): CARE MANAGEMENT / SOCIAL WORK IP CONSULT Care Management Initial Consult General Information Assessment completed with: Patient Type of CM/SW Visit: Initial Assessment Primary Care Provider verified and updated as needed: Yes Readmission within the last 30 days: other (see comments) (Transfer from [facility]) Reason for Consult: discharge planning Advance Care Planning: other (see comments) (Patient was not interested in completing a HCD at thistime.) Communication Assessment Patient's communication style: spoken language (Icelandic or Bilingual) Hearing Difficulty or Deaf: no [...] No Food Insecurity (01/10/2023) Received from [facility] Hunger Vital Sign Worried About Running Out of Food in the Last Year: Never true Ran Out of Food in the Last Year: Never true Depression: At risk (01/10/2023) Received from [facility] PHQ-2 PHQ-2 Score: 3 Housing Stability: Low Risk (01/10/2023) Received from [facility] Housing Stability Vital Sign Unable to Pay for Housing in the Last Year: No Number of Places Lived in the Last Year: 1 Unstable Housing in the Last Year: No Tobacco Use: Low Risk (01/17/2024) Patient History Smoking Tobacco Use: Never Smokeless Tobacco Use: Never Passive Exposure: Not on file Financial Resource Strain: Low Risk (01/10/2023) Received from [facility] Overall Financial Resource Strain (CARDIA) Difficulty of Paying Living Expenses: Not hard at all Alcohol Use: Not At Risk (01/10/2023) Received from [facility] AUDIT-C Frequency of Alcohol Consumption: Monthly or less Average Number of Drinks: 1 or 2 Frequency of Binge Drinking: Never Transportation Needs: No Transportation Needs (01/10/2023) Received from [facility] PRAPARE - Transportation Lack of Transportation (Medical): No Lack of Transportation (Non-Medical): No Physical Activity: Sufficiently Active (01/10/2023) Received from [facility] Exercise Vital Sign Days of Exercise per Week: 5 days Minutes of Exercise per Session: 30 min Interpersonal Safety: Not At Risk (01/10/2023) Received from [facility] Humiliation, Afraid, Rape, and Kick questionnaire Fear of Current or Ex-Partner: No Emotionally Abused: No Physically Abused: No Sexually Abused: No Stress: Stress Concern Present (01/10/2023) Received from [facility] [place] [place] [employer] - Occupational Stress Questionnaire Feeling of Stress : Rather much Social Connections: Socially Isolated (01/10/2023) Received from [facility], [facility] Social Connection and Isolation Panel [NHANES] Frequency of Communication with Friends and Family: Once a week Frequency of Social Gatherings with Friends and Family: Once a week Attends Cheondoism Services: Never Active Member of Clubs or [...] No Current Concerns Values/Beliefs Spiritual, Cultural Beliefs, Cheondoism Practices, Values that affect care: No Additional [...] assessment. Patient reports she was admitted to [facility] for a week and then transferred to ARU here at [facility]. Patient was admitted to ARU on Saturday and then had a seizure and was hospitalized on 5MS last night. SW has already been in contact with rehab admissions. Per rehabilitation physician, she just got to [facility] on Saturday, [...] emailed/faxed back to patients employer which is [employer]. Will ask hospitalist to complete tomorrow. Care management continues to follow. Pending: [facility] [address] [place] [address] P: [phone] F: [phone] [address] Oliva, [facility] 5 Med Surg Sewing Machine Operator [facility] Pager: [phone] * Christiano Hooper MD - 01/20/2024 2:23 PM CDTAssociated Order(s): NEUROLOGY GENERAL ADULT IP CONSULT CC: spells HPI: Asked to see this 48 year old woman by medicine team for spells. Recent medical events documented in EMR noted. In brief, was recently at [place] [facility] for interventional exploration of pulsatile tinnitus. She developed right arm weakness after procedure and found to have bihemispheric acute ischemicstrokes on MRI after her cerebral angiogram. She was seen by neurology at [facility] who provided recommendations for stroke follow up. [...] shows no seizures will need transfer to [facility] for vEEG monitoring (to capture spell on vEEG) Agree with management of stroke as documented by [facility] neurology team. Please see their notes for details. She will need outpatient neurology follow up for stroke care and keppra management. Pending clinical course and EEG may be able to tapered off as an outpatient. She requests interventional interventional radiology follow up at [facility] (rather than [facility]) for further evaluation and [...] her life. She did not report a spiritual/samaritan affiliation. Alcon shared that she finds it helpful to verbally process these events, as she makes sense of themand gives voice to her emotions. Plan: [facility] remains available by consult. Genet Batres M.Div. Glycerin Operator Pager [phone] Reachable via [employer] SHS available 08/04 for emergent requests/referrals, either by paging the on-call quality assurance technician or by entering an FIFI/STAT consult in [facility], which will also page the on-call quality assurance technician. Assessment Saw pt Alcon A Sula per routine consult for emotional support. Patient/Family [...] thought she was being transferred away from [facility].She reports some financial stressors, and her is back to work in [place] today. Strengths, Coping, and Resources - Alcon described herself as very resilient, which I affirmed. Diana affirmed her strong advocacy voice as she navigated her hospital admission and exercised her self-insight that something wasn't right. Her , daughters, and two granddaughters are primary supports, as well as her aunt, who works as a Neuro RN on the at [facility]. She shared that she is a fix it person, and is feeling better after getting dressed this morning and getting out of bed. Meaning, Beliefs, and Spirituality - Alcon did not identify a spiritual/samaritan background. She reports that verbally processing was very helpful for her. [facility] remains available for continued support via [...] Bolaños CM - 01/22/2024 8:15 AM CDT [facility] Pre-Admission Screen Referral Source: [facility] MED SURG UR UMP EEG Admit date [...] for seizure-like activity. Pt had admitted to [facility] on 01/16 from outside hospital to address ongoing impairments and medical management needs associated with recent cerebral infarct of the frontal lobes, parietal lobes, left supramarginal gyrus, embolic in nature. Stroke attributed to likely procedural complications from planned catheter angiogram at [facility] for left sided pulsatile tinnitus [...] clot formation due to catheter. On 01/19 GREENHOUSE OR NURSERY TRANSPLANTER was activated at [facility]. Patient was non-verbal, rapid eye movement, and repetitive grinding of teeth that was self limiting. It was witnessed by bedside ARU staff prompting code rapid response. Pt transferred to [facility] for further work up of her seizure like activity. Per Neuro, unclear etiology of seizures. Suspect related to recent stroke and anticipate to be self-limiting. Unlikely to be true seizures. Of note, pt also had witnessed seizure 01/13 at [facility]. Initiated on Keppra. Suspected acute related to recent stroke. MRI on 01/19 was negative for recurrent stroke. EEG completed 01/20 and was negative for seizure. Pt is now stable and ready to return to [facility] for ongoing rehab. Patient requires an intensive inpatient rehab program to address the following acute impairments:impaired activity tolerance, impaired balance, impaired cognition, impaired coordination, and impairedstrength. 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 Continue LEAD MASSAGE THERAPIST Keppra 750 mg BID and seizure precautions. [...] but would like to transition cares to [facility]. [facility] Interventional Neuroradiology referral at [facility]. Will need ongoing assessment. Mental Health: In setting of Anxiety, depression, psychosocial stressors and insomnia. Reports understandable stress given recent events. Denied SI/HI. Coping admirably. 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 Health Psychology not available for inpatient consulation; would benefit from health psych consult on acute rehab. Continue LEAD MASSAGE THERAPIST Atarax 50 mg at bedtime. LEAD MASSAGE THERAPIST Trazodone 100 mg at bedtime. Promote sleep [...] Activity/Exercise/Self-Care Comment: Pt works from home as pediatric medical assistant. Baseline IND with all mobility and ADLs/IADLs. Admitted from ARU and there pt had progressed to mod ind in room with walker, still needing SBA-CGA for ambulation in open environments. Additional Comments: n/a Level of Function: GG Scale (Section GG Functional Ability and Goals; [facility]'s HOOD Version 3.0 Manual effective 06.16.2019): PT [...] completed 6 Independent Cognition Not Assessed Independent MANAGER PROGRESSIVE CARE Current Function Goals for Rehab Swallow Not Impaired Not applicable Communication Not Impaired Not applicable Current Diet: 0-Thin and 7-Regular Summary Statement: Jose Zamora is a 48 y/o female with recent strokes, hemiparesis with UE more involved than LE, balance deficits, and possible swallow deficits. The patient requires ongoing PT, OT and MANAGER PROGRESSIVE CARE services. 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 Dania needed for transfers when fatigued without [...] in functional capacity or adaption to impairments. signature/date/time: * Plan of Care - Maryan Marcelo RN - 01/22/2024 1:23 AM CDT [id number] Pt. Is A & O X 4. [...] Tavares RN - 01/21/2024 10:04 PM CDT [id number] Pt is Aox4. Up SBA with walker [...] * Pharmacy-Admission Medication History - Speedy Flores [facility] - 01/20/2024 4:30 PM CDT Pharmacist Admission Medication History Admission medication history is complete. The information provided in this note is only as accurateas the sources available at the time of the update. Information Source(s): Facility ([facility]/[place]/) medication list/MAR via N/A Pertinent Information: Completed using MAR from [facility]. Changes made to LEAD MASSAGE THERAPIST medication list: Added: ASA 325mg daily Cetirizine 10mg daily Keppra 750mg BID MgOxide 200mg at bedtime Psyllium - 1 packet daily Rosuvastatin 20mg at bedtime Deleted: Cyclobenzaprine Flonase Changed: None Allergies reviewed with patient and updates made in EHR: no Medication History Completed By: Speedy Flores RPH 01/20/2024 4:30 PM LEAD MASSAGE THERAPIST Med List Medication Sig Last Dose albuterol [...] MD - 01/20/2024 3:32 PM CDT Paged MD the following: Noah Bethany [id number]- Pt is requesting that language in chart stating she had previously denied MRI be changed as she states she never refused MRI. She verbalizes being upset with charting made. Lilliana RIBEIRO [phone] Provider Addendum: Note was based on review of records from [facility]. Will update to reflect patient report. Airam Jay MD [facility] Medicine, PGY-2 * Plan of Care - [...] Tovar RN - 01/20/2024 2:51 AM CDT [id number] Goal Outcome Evaluation: Plan of Care Reviewed With: patient Overall Patient Progress: decliningOverall Patient Progress: declining Outcome Evaluation: Pt had seizure while in ARU Pt admitted to floor from ARU after GREENHOUSE OR NURSERY TRANSPLANTER was called for seizure-like activity. Pt is [...] RN) Title of person requesting team RN GREENHOUSE OR NURSERY TRANSPLANTER Arrival time 2101 Time GREENHOUSE OR NURSERY TRANSPLANTER ended 2229 Reason for call Type of GREENHOUSE OR NURSERY TRANSPLANTER Adult Primary reason for call Neurological Neurological Seizure;Other (describe) (concerns for seizure) Was patient transferred from the ED, ICU, or PACU within last 24 hours prior to GREENHOUSE OR NURSERY TRANSPLANTER call? No SBAR Situation Patient found to have rapid eye movement, increased headache with eye pain, and non verbal during seizure like episode Background HX of seizures and post infarcts Notable History/Conditions Seizures;Neurological Assessment Patient was talking when GREENHOUSE OR NURSERY TRANSPLANTER nurse arrived to scene. Patient a/o x4. Vitals stable with slight hypertension. Shortly after arrival, patient began to have rapid eye movement and patient wasunable to verbalize during episode. Interventions Labs;Other (describe) (IV placed and CT ordered) Adjustments to Recommend Transfer to medical unit for tele and IMC status. Patient Outcome Patient Outcome Transferred to (transferred to [facility]/ medical for tele and IMC) GREENHOUSE OR NURSERY TRANSPLANTER Team Attending/Primary/Covering Physician Randy Kwon, MONICA Date Attending Physician notified 01/19/24 Time Attending Physician notified 2056 Physician(s) Chacho Kwon and hospitalist. Lead RN Escobar Samson RN RN Azra RN and Matt RN RT na Other staff NST Post GREENHOUSE OR NURSERY TRANSPLANTER Intervention Assessment Post GREENHOUSE OR NURSERY TRANSPLANTER Assessment Stable/Improved (and transferred to IM) documented in this encounter Plan of Treatment Upcoming Encounters Date Type Department Care Team (Late st Contact Info) Description 02/26/2024 1:40 PM CDT Appointment [facility] Imaging [address] [place] [phone] Denise Woodson Ra, BAR HELPER LANGUAGE TRANSLATOR [address] [place] [address] 02/26/2024 2:15 PM CDT Therapy Visit [address] [phone] Danya You, AMAIRANI [address] [place], [place] [address] Charis Chacon SLP [facility] [address] [place] [address] 02/26/2024 3:00 PM CDT Therapy Visit [address] [phone] Danya You PA [address] [place], [place] [address] Isabel Beaulieu OTR [facility] [address] [place] [address] 02/27/2024 4:45 PM CDT Therapy Visit [facility] [address] [place] [phone] Danya You, PA [address] [address] Vanessa Duggan, PT 03/05/2024 1:30 PM CDT Therapy Visit [address] [phone] Danya You, PA [address] [address] Isabel Beaulieu, OTR [address] [address] 03/05/2024 3:15 PM CDT Therapy Visit [address] [phone] Danya You, PA [address] [address] Charis Chacon, JUAN [facility] [address] [place] [address] 03/05/2024 4:15 PM CDT Therapy Visit [address] [phone] Danya You, PA [address] [phone] Delicia George, PT [facility] [address] [address] 03/11/2024 2:15 PM CDT Therapy Visit [address] [phone] Danya You, AMAIRANI [address] [facility] [address] [address] Isabel Beaulieu, OTR [address] [address] 03/11/2024 3:00 PM CDT Therapy Visit [address] [phone] Danya You, AMAIRANI [address] [address] Charis Chacon, JUAN [facility] [address] [place] [address] 03/11/2024 4:15 PM CDT Therapy Visit [address] [phone] Danya You, PA [address] [place], [place] [address] [address] Delicia George, PT [facility] [address] [place] [address] 03/17/2024 10:00 AM CDT Office Visit [facility] [address] [place] [phone] Denise Woodson Ra, BAR HELPER LANGUAGE TRANSLATOR [address] [place], [place] [phone] 03/17/2024 1:30 PM CDT Therapy Visit [facility] [address] [place] [phone] Danya You PA [facility] [address] [address] Isabel Beaulieu, OTR [address] [address] 03/17/2024 2:30 PM CDT Therapy Visit [address] [phone] Danya You, AMAIRANI [address] [place] [address] Charis Chacon, MANAGER PROGRESSIVE CARE [facility] [address] [place] [address] 03/17/2024 4:00 PM CDT Therapy Visit [address] [phone] Danya You, AMAIRANI [address] [place] [address] Vanessa Duggan, PT 03/23/2024 10:30 AM CDT Office Visit [facility] [phone] [place] [phone] Denise Woodson Ra, BAR HELPER [facility] [address] [place], [place] [phone] 03/26/2024 1:30 PM CDT Therapy Visit [address] [phone] Danya You PA [facility] [address] [place] [address] Isable Beaulieu, OTR [facility] [address] [address] 03/26/2024 2:30 PM CDT Therapy Visit [address] [phone] Danya You, PA [address] [place] [address] Charis Chacon, [facility] [address] [place] [address] 03/26/2024 3:30 PM CDT Therapy Visit [address] [phone] Danya You PA [address] [place] [phone] Delicia George, PT [facility] [address] [place] [address] 04/02/2024 2:15 PM CDT Therapy Visit [address] [phone] Danya You, PA [address] [place] [address] Isabel Beaulieu, OTR [facility] [address] [address] 04/02/2024 3:15 PM CDT Therapy Visit [facility] [address] [place] [address] Danya You PA [address] [facility] [address] [address] Charis Chacon SLP [facility] [address] [place] [address] 04/02/2024 4:15 PM CDT Therapy Visit [address] [phone] Danya You, AMAIRANI [address] [address] Delicia George, PT [address] [phone] 04/09/2024 3:15 PM CDT Therapy Visit [address] [phone] Danya You, PA [facility]0 [address] [address] Charis Chacon, J[facility]AN [facility] [address] [place] [address] 04/09/2024 4:15 PM CDT Therapy Visit [address] [phone] Danya You PA [facility] [address] [address] Delicia George, PT [address] [address] 04/15/2024 9:30 AM CDT Therapy Visit M [facility] [address] [place] [phone] Danya You, PA [address] [address] [place] [address] Danya Restrepo, MANAGER PROGRESSIVE CARE 04/23/2024 2:30 PM CDT Therapy Visit M [address] [phone] Danya You, PA [address] [place] [address] Charis Chacon, [facility] [address] [place] [address] 05/05/2024 2:30 PM CDT Office Visit M [facility] Epilepsy [facility] [address], [address] [place] [phone] Rohit Barcenas MD [address] [facility] [address] [place] [address] 06/23/2024 11:00 AM CDT Virtual Visit M [facility] Mental Health & Addiction [facility] [address] [place] [phone] Kristin Vázquez, [facility] [address] [place] [phone] 06/30/2024 2:00 PM CDT Virtual Visit [facility] Mental Health & [facility] [address] [place] [phone] Gurpreet Kristin Se, [facility] [address] [facility] [place] [phone] Scheduled Referrals Name Type Priority Associated Diagnoses Orde r Schedule Adult Neurology Cull Grader Referral Referral Routine: Next available opening Seizure-like [...] STAT 01/20/2024 6:53 PM CDT MRA BRAIN ([place]) W/O CONTRAST STAT 01/20/2024 6:50 [...] of an antiphospholipid syndrome, recommend anticardiolipin and evzv-0-pocyrimxydp n (IgG and IgM) antibody tests. Mikayla Cooper MD, PhD [facility] 4 2:25 PM CDT [facility] Blood STRUCTURE OF RIGHT HAND / Unknown Venipuncture / Unknown 01/21/2024 1:20 PM CDT 01/21/2024 1:26 PM CDT Airam Jay MD LAB - BLOOD ORDERABL ES Performing Organization Address City/[facility] Co de Phone Number [facility] [address] [facility], [address] [phone] * Factor 2 assay (01/21/2024 1:20 PM CDT) Factor 2 Assay 131 60 - 140 % 01/22/2024 9:53 AM CDT [facility] Comment: The Factor 2 activity level is not a screening test for the Prothrombin 84643 mutation. Blood STRUCTURE OF RIGHT HAND / Unknown Venipuncture / Unknown 01/21/2024 1:20 PM CDT 01/21/2024 1:26 PM CDT Airam Jay MD LAB - BLOOD ORDERABL ES Performing Organization Address City/[facility] Co de Phone Number [facility] [address] [facility], [address] [phone] * EEG Video 2-12 HRS Ummonitored (01/21/2024 12:15 PM CDT) Narrative [facility] - 01/21/2024 3:06 PM CDT EEG Video 2-12 HRS Um[facility]itored Result VIDEO EEG DATE: 01/21/2024 VIDEO EEG [id number] VIDEO EEG DAY#: 1 VIDEO EEG SOURCE [...] ORDERABL ES SPECIALTY CORE/PROT/ENDO Specialty Core/Prot/Endo [address] [facility] [address] Building, Room [address] * CBC with platelets and differential (01/21/2024 5:51 AM CDT) [facility] WBC Count 8.6 4.0 - 11.0 10e3/uL [...] [facility] [address] [facility], [address] [place] [phone] * Basic metabolic panel (01/21/2024 5:51 AM CDT) [facility] Sodium 139 135 - 145 mmol/L [...] [facility] [address] [facility], [address] [place] [address] * MRA Neck (Carotids) wo [...] findings. ANA LATHAM MD Airam Jay MD [facility] MRI ORDERABLES * MRA Brain ([place]) wo Contrast (01/20/2024 6:50 PM CDT) Anatomical Region Laterality Modality Head, SUBRAD MR NEURO, UMP MR NEURO, RAD MR Magnetic Resonance Impressions 01/20/2024 7:49 PM CDT IMPRESSION: No intracranial arterial aneurysm or stenosis. I have personally reviewed the examination and initial interpretation and I agree with the findings. ANA LATHAM MD Narrative 01/20/2024 7:49 PM CDT EXAM MRA BRAIN ([place]) W/O CONTRAST 01/20/2024 6:50 PM HISTORY: Multifocal CVA 01/12 with seizure like activity 5/5; Neuro rec'd repeat MRI to rule out recurrent CVA COMPARISON: No images. Outside CTA report for 01/09/2024 obtained through Care Everywhere. 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 Outside CTA report for 01/09/2024 obtained through Care Everywhere. TECHNIQUE: Using a 3D jooc-lx-twwrjg image acquisition technique, MRA of the major [...] [facility] [address] [facility], Room [address] [place] [address] * Basic metabolic panel (01/20/2024 [...] - BLOOD ORDERABL ES Performing Organization Address City/[facility]/ZIP Co de Phone Number UR LABORATORY [facility] [address] [place] [address], Room [address] * Lactic acid whole blood (01/19/2024 11:55 PM CDT) Lactic Acid 1.1 0.7 - 2.0 mmol/L 01/20/2024 12:03 AM CDT UR LABORATORY Blood STRUCTURE OF RIGHT UPPER LIMB / Unknown Venipuncture / Unknown 01/19/2024 11:55 PM CDT 01/20/2024 12:01 AM CDT Len Camejo DO LAB - BLOOD ORDERABLES Performing Organization Address City/[facility]/ZIP Co de Phone Number UR LABORATORY [facility] Lab [address] [place] [address], Room [address] * Basic metabolic panel (01/19/2024 11:55 [...] [facility] [address] [facility], [address] [place] [address] * Troponin T, High Sensitivity (01/19/2024 11:55 PM CDT) [facility] Troponin T, High Sensitivity <6 <=14 [...] PM CDT 01/20/2024 12:01 AM CDT Len WindomAntoinette DO LAB - BLOOD ORDERABLES UR LABORATORY [facility] [address] [facility], [address] [phone] * Extra Purple Top Tube (01/19/2024 11:54 PM CDT) Hold Specimen JI 01/20/2024 1:04 AM CDT UR LABORATORY Blood BLOOD SPECIMEN / Unknown Venipuncture / Unknown 01/19/2024 11:54 PM CDT 01/20/2024 12:03 AM CDT Luis Reynolds DO LAB - BLOOD ORDERABL ES UR LABORATORY [facility] Lab [facility]0 [facility], Room [address] [phone] documented in this encounter Visit [...] Sat01/20/24 at 0100, Substituted per formulary for LEAD MASSAGE THERAPIST chelated magnesium $Given 01/21/2024 9:09 PM CDT [...] available) 0848 (Not Given - Provider: Maryse Solis, GEMA - Reason: Patient/family refused) gadobutrol (GADAVIST) injection [...] at 2200 2102 ($Given - Provider: Stephanie Tobias, GEMA) 2109 ($Given - Provider: Janice Tavares, GEMA) levETIRAcetam (KEPPRA) tablet 750 mg 750 mg, Oral, 2 TIMES DAILY, First dose on Sat01/20/24 at 0800 0801 ($Given - Provider: Lilliana Yadav RN)2005 ($Given - Provider: Stephanie Tobias RN) 0817 ($Given - Provider: Lilliana Yadav RN)2009 ($Given - Provider: Janice Tavares, GEMA) 0834 ($Given - Provider: Maryse Solis, GEMA) Lidocaine (LIDOCARE) 4 % Patch 1 patch [...] injection. 1151 ($Patch/Med Applied - Provider: Maryse Solis, GEMA)1419 (Due: Patch/Med Removed - Provider: Orders Generic Provider - Comment: Time automatically adjusted from order being discontinued) magnesium oxide (MAG-OX) half-tab 200 mg 200 mg, Oral, AT BEDTIME, First dose on Sat01/20/24 at 0100, Substituted per formulary for LEAD MASSAGE THERAPIST chelated magnesium 0103 ($Given - Provider: Rocio [...] Lilliana Yadav RN)1314 ($Given - Provider: Lilliana Yadav, RN)1920 ($Given - Provider: Chrissy Hunter RN) 0614 ($Given - Provider: Stephanie Tobias RN)1901 ($Given - Provider: Lilliana Yadav RN) 0055 ($Given - Provider: Maryan Marcelo RN)0604 ($Given - Provider: Maryan Marcelo RN)0847 (Not [...] and neck. [facility] dose. lidocaine (LMX4) cream Topical, EVERY 1 [...] dormant line, Starting on Sat01/20/24 at 0011 2103 ($Given - Provider: Stephanie Tobias RN) Linked [...] 2 TIMES DAILY PRN, constipation, Starting on 01/20/24 at 0011, IF more than 1 constipation [...] documented as of this encounter Care Teams [employer] Reclamation Engineer Relationship Specialty Start Date End Date Yung Madrigal MD RETIRED PCP - Orthopaedics Orthopedics 08/26/12 01/20/24 Winston Villatoro OD [facility] [place] [address] [place] [address] PCP - Ophthalmology Ophthalmology 02/11/13 Denise Woodson Ra, APRN LANGUAGE TRANSLATOR [address] [address] PCP - General Family Practice 09/21/20 Denise Woodson Ra, APRN LANGUAGE TRANSLATOR [address] [address] [address] Assigned PCP 07/17/20 documented as of this encounter
--- OUTSIDE RECORDS SUMMARY | 2024-02-22 15:25 | XMS_ITS | Encounter Summary ---
Author Organization [facility] Address [address] [place] [id number] Care Team Providers Care Admission Liaison Name Role Phone Yung Madrigal MD Unavailable Unavailable Winston Villatoro OD Unavailable [phone] Denise Woodson Ra, APRN HAND ICER Unavailable [phone] Denise Woodson Ra, APRN, CNP Primary Care Provid er Reason for Visit * Auth/Cert (Routine) Specialty Diagnoses / Procedures Referred By Nila t Referred To Contact Rehabilitation Acute Rehab [address] [address] Referral ID Status Reason Start Date Expiration Date Visits Re quested Visits Authorized [id number] 1 1 Encounter Details Date Type Department Care Team (Latest Contact Info) Description 01/17/2024 1:09 PM CDT - 01/19/2024 10:07 PM CDT Hospital Encounter [facility] [address] [address] Parminder Del Angel MD [address] [place] [address] Sandi Saini MD [address] [place], [place] [id number] Discharge Disposition: Short Term Hospital Social History [...] the original note were not included. . [facility] Acute Rehabilitation Unit Discharge summary Date of Admission: 01/17/2024 Date of Discharge: 01/18/34 Disposition: acute hospital Primary Care Physician: Denise Woodson Ra Attending physician: No att. providers found Other significant physician provider(s): scallop cutter Dr. Saini discharge diagnosis Impairment group code: 01.2 Right body, left brain stroke, multiple acute ischemic infarcts in the frontal and parietal lobes, left supramarginal gyrus following angiogram brief summary Alcon Zamora is a 48 year old female with past medical history of Lizy-Danlos syndrome, mild persistent asthma, anxiety and depression, fibromyalgia presented for a planned catheter angiogram at [facility] for left sided pulsatile tinnitus on 01/09/24, found to have 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 On 01/20/24: BIG MACHINE CONSULTANT was activated. Patient was non-verbal, rapid eye [...] E-Prescribe fluticasone (FLONASE) 50 MCG/ACT nasal spray [place] 2 sprays into both nostrils daily, Disp-16 [...] Regular Pulse: 79 80 74 79 Resp: 17 18 17 Temp: 97.5 ??F (36.4 ??C) 97.8 ??F (36.6 ??C) 97.2 ??F (36.2 ??C) TempSrc: Oral Oral Oral SpO2: 96% 94% 95% Weight: Height: See BIG MACHINE CONSULTANT notes for physical exam prior to transfer. [...] times daily as needed for constipation 01/22/2024 calcium carbonate (TUMS) 500 MG chewable tabletIndications:Naus ea Take 1 tablet (500 mg) by mouth 4 times daily as needed for heartburn 01/22/2024 02/06/2024 acetaminophen (TYLENOL) 325 MG tabletIndications:Fibr omyalgia,Pain of [...] (FLONASE) 50 MCG/ACT nasal sprayIndications:Chron ic rhinitis [place] 2 sprays into both nostrils daily 16 [...] encounter Progress Notes * Randy Kwon APRN HAND ICER - 01/19/2024 9:54 PM CDT [facility] Critical Response Team BIG MACHINE CONSULTANT Note 01/19/2024 BIG MACHINE CONSULTANT called for: concern for seizure Assessment & [...] ordered -Sign out given to Dr. Reynolds [place] hospitalist -Continue Keppra regimen HPI: Alcon Zamora is a 48 year old female with past medical history of Lizy- Danlos syndrome, mild persistent asthma, anxiety and depression, fibromyalgia presented for a planned catheter angiogram at [facility] for left sided pulsatile tinnitus on 01/09/24, found to have multiple acute ischemic infarcts of the frontal lobes, parietal lobes and left supramarginal gyrus after procedure with associated right sided weakness and numbness, likely embolic in nature secondary to procedure complication, complicated by post-stroke seizures, now being admitted on 01/17/2024 at [facility] foracute inpatient rehabilitation. Code Status: [...] listed in this note. Randy Kwon APRN HAND ICER * Tulio Alva, SHAPER HAND - 01/19/2024 12:58 PM CDT 01/19/24 1251 Appointment Info Signing Clinician's Name / Credentials (SHAPER HAND) Tulio Alva MS, [facility]-SHAPER HAND General Information Onset of Illness/Injury or Date of Surgery 01/09/24 Referring Physician AMAIRANI You Patient/Family Therapy Goal Statement (SHAPER HAND) Swallow without difficulties Pertinent History of Current Problem Alcon Zamora is a 48 year old female with past medical history of Lizy-Danlos syndrome, mild persistent asthma, anxiety and depression, fibromyalgia presented for a planned catheter angiogram at [facility] for left sided pulsatile tinnitus on [...] difficulties at times with pills and harder veneer drier feeder textures such as chicken breast. Current Diet/Method [...] no specific recommendations Medication Administration Recommendations, Swallowing (SHAPER HAND) Per patient preference Clinical Impression Criteria for Skilled Therapeutic Interventions Met (SHAPER HAND Eval) No problems identified which require skilled intervention SHAPER HAND Diagnosis Swallowing within functional limits Problem List (SHAPER HAND) Suspect patient had some initial oropharyngeal dysphagia that has spontaneously improved. Patient at this date was able to recognize some of the improvements she has had since initial onset of CVA. Activity Limitations Related to Problem List (SHAPER HAND) No restrictions or limitations Clinical Impression Comments Bedside swallow evaluation completed as patient has previously reported some swallowing difficulties with harder/veneer drier feeder food items as well as medications. Patient was observed this date with harder/veneer drier feeder items was able to tolerate without difficulties [...] continue focus of treatment on cognitive-linguistic impairments. SHAPER HAND Discharge Planning SHAPER HAND Plan FAVRES as treatment. Moderate to complex level reasoning/problem solving and attention tasks. Immediate/short-term memory strategies. 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 Previous [...] presented for a planned catheter angiogram at [facility] for left sided pulsatile tinnitus, found [...] good balance Sitting Balance: Dynamic fair balance [id number] Balance fair balance Standing Balance: Static poor [...] coordination training;patient/family education;postural re-education;ROM (range of motion);stair training;strengthening;stretching;chilean ball techniques;TENS;thermotherapy;transfer training;progressive activity/exercise;risk factor education;home program [...] Evaluation Time PT Eval, High Complexity Minutes (81761) 45 Physical Therapy Goals PT Frequency 6x/week [...] Ther. Procedure: strength, endurance, ROM, flexibillity Minutes (23627) 15 Symptoms Noted During/After Treatment fatigue Treatment [...] Object Physical Assistance Level Contact guard assist Donor Center Technician CARE Score 4 Car Transfer Physical Assistance Level Contact guard assist Car Transfer CARE Score 4 * Tulio Alva, SHAPER HAND - 01/18/2024 3:49 PM CDT Repeatable Battery for the Assessment of Neuropsychological Status (RBANS) FORM A Immediate Memory Visuospatial/ Constructional Language Attention Delayed Memory Total Scale Index Score 87 100 91 75 98 86 Percentile Rank 19 50 27 5 45 18 SHAPER HAND: Pt seen for administration of RBANS. Results [...] from the original note were not included. [facility] Acute Rehabilitation Unit Progress Note INTERVAL HISTORY Alcon Zamora is a 48 year old female with past medical history of Lizy-Danlos syndrome, mild persistent asthma, anxiety and depression, fibromyalgia presented for a planned catheter angiogram at [facility] for left sided pulsatile tinnitus on 01/09/24, found to have 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 Reports having poor sleep yesterday. Patient said my sleep medication was not given to me yesterday night. I checked the MAR and Trazodone was given at 9.30 PM PAST MEDICAL HISTORY Reviewed and updated in [facility]. Past Medical History: Diagnosis Date Acute posthemorrhagic [...] asthma SURGICAL HISTORY Reviewed and updated in [facility]. Past Surgical History: Procedure Laterality Date C SCRAP PREPARER PROCEDURE DATE: vag del. C SCRAP PREPARER PROCEDURE DATE: 2000 tubal ligation C SCRAP PREPARER PROCEDURE DATE: 1994 D&C CARDIAC SURGERY 06/2006 heart defect repair ESOPHAGOSCOPY, GASTROSCOPY, DUODENOSCOPY (EGD), COMBINED N/A 02/08/2021 Procedure: ESOPHAGOGASTRODUODENOSCOPY (EGD); Surgeon: Tuan Miller MD; Location: GI GI SURGERY 09/2020 gallbladder removed HC KNEE SCOPE,MED/LAT MENISECTOMY 08/04/13 LT HEART CATH, CLOSURE ATRIAL SEPTAL DEFECT 06/20/06 amplatzer septal occluder- serial #[id number] SCRAP PREPARER (ABSTRACTED) pneumonia several times SURGICAL PATHOLOGY EXAM 02/2012 excision of lipoma on chest wall ZZC VAGINAL HYSTERECTOMY 01/30/06 SOCIAL HISTORY Reviewed and updated in [facility]. Living Situation: Lives with Sandor, in split level home , 2 [address] home with rail in front door, no rail in garage (also 2 [address]), 8-9 steps to get to a floor with a bedroom or bathroom. 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 No Social History Narrative Not on file Social Determinants of Health Financial Resource Strain: Low Risk (01/10/2023) Received from [facility] Overall Financial Resource Strain (CARDIA) Difficulty of Paying Living Expenses: Not hard at all Food Insecurity: No Food Insecurity (01/10/2023) Received from [facility] Hunger Vital Sign Worried About Running Out of Food in the Last Year: Never true Ran Out of Food in the Last Year: Never true Transportation Needs: No Transportation Needs (01/10/2023) Received from [facility] PRAPARE - Transportation Lack of Transportation (Medical): No Lack of Transportation (Non-Medical): No Physical Activity: Sufficiently Active (01/10/2023) Received from [facility] Exercise Vital Sign Days of Exercise per Week: 5 days Minutes of Exercise per Session: 30 min Stress: Stress Concern Present (01/10/2023) Received from [facility] [employer] [employer] [facility] - Occupational Stress Questionnaire Feeling of Stress : Rather much Social Connections: Socially Isolated (01/10/2023) Received from [facility] Social Connection and Isolation Panel [NHANES] Frequency of Communication with Friends and Family: Once a week Frequency of Social Gatherings with Friends and Family: Once a week Attends Spiritism Services: Never Active Member of Clubs or Organizations: No Attends Club or Organization Meetings: Never Marital Status: Interpersonal Safety: Not At Risk (01/10/2023) Received from [facility] Humiliation, Afraid, Rape, and Kick questionnaire Fear of Current or Ex-Partner: No Emotionally Abused: No Physically Abused: No Sexually Abused: No Housing Stability: Low Risk (01/10/2023) Received from [facility] Housing Stability Vital Sign Unable to Pay for Housing in the Last Year: No Number of Places Lived in the Last Year: 1 Unstable Housing in the Last Year: No FAMILY HISTORY Reviewed and updated in [facility]. Family History Problem Relation Age of Onset [...] 0 fluticasone (FLONASE) 50 MCG/ACT nasal spray [place] 2 sprays into both nostrils daily 16 [...] 150 - 450 10e3/uL Extra Green Top ([place] Heparin) Tube Collection Time: 01/18/24 5:40 AM Result Value Ref Range Hold Specimen JIC IMPRESSION/PLAN: Alcon Zamora is a 48 year old female with past medical history of Lizy-Danlos syndrome, mild persistent asthma, anxiety and depression, fibromyalgia presented for a planned catheter angiogram at [facility] for left sided pulsatile tinnitus, found to have multiple acute ischemic infarctsof the frontal lobes, parietal lobes and left supramarginal gyrus after procedure with associated right sided weakness and numbness, likely embolic in nature secondary to procedure complication, complicated by post-stroke seizures, now being admitted on 01/17/2024 at [facility] for acute inpatient rehabilitation. Patient will require and benefit from PT, OT, and SHAPER HAND services as well as all of the ancillary services offered in the inpatient rehab setting. Admission to acute inpatient rehab: 01/17/2024 Impairment group code: 01.2 Right body, left brain stroke, multiple acute ischemic infarcts in the frontal and parietal lobes, left supramarginal gyrus following angiogram PT, OT and SHAPER HAND 60 minutes of each on a daily basis, in addition to rehab nursing and close management of anime designer. Impairment of ADL's: Impairment in strength, endurance, [...] # Headaches, frontal Patient was seen by [facility] interventional neuroradiology for diagnostic catheter cerebral angiogram for left sided pulsatile tinnitus. 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, parietal lobes and left supramarginal gyrus, neurology believed embolic in nature, likely procedural complication - PT, OT, SHAPER HAND - Secondary stroke ppx: - BP: Goal [...] monitor - Follow up labs: CBC, BMP Mon/ - VS BID & PRN # Seizure [...] need during rehab stay # Asthma - BROTH SETTER Breo Ellipta qday # Bowel: States [...] activities as noted above. * Tulio Alva, SHAPER HAND - 01/18/2024 8:00 AM CDT 01/18/24 1200 Appointment Info Signing Clinician's Name / Credentials (SHAPER HAND) Tulio Alva MS [facility] SHAPER HAND General Information Onset of Illness/Injury or Date of Surgery 01/09/24 Referring Physician AMAIRANI You Patient/Family Therapy Goal Statement (SHAPER HAND) Get back to work Pertinent History of Current Problem leigha Zamora is a 48 year old female with past medical historyof Lizy-Danlos syndrome, mild persistent asthma, anxiety and depression, fibromyalgia presented for a planned catheter angiogram at [facility] for left sided pulsatile tinnitus on [...] Impression Criteria for Skilled Therapeutic Interventions Met (SHAPER HAND Eval) Yes, treatment indicated SHAPER HAND Diagnosis Mild cognitive linguistic impairment. Problem List (SHAPER HAND) Impaired attention and executive functioning. Patient does have good insight into deficits being experienced Activity Limitations Related to Problem List (SHAPER HAND) Decreased level of independence with higher level [...] benefitfrom skilled intervention to maximize cognitive function. SHAPER HAND Goals Therapy Frequency (SHAPER HAND Eval) 6 times/week SHAPER HAND Predicted Duration/Target Date for Goal Attainment 02/01/24 SHAPER HAND Goals SHAPER HAND Goal 1;SHAPER HAND Goal 2 SHAPER HAND: Goal 1 Patient will utilize compensatory memory strategies to recall novel information with presence of distractions and delays with 90% accuracy SHAPER HAND: Goal 2 Patient will complete complex level reasoning/problem solving tasks with 90% accuracy without need for redirection. SHAPER HAND Discharge Planning SHAPER HAND Plan Initiate and pull to note dysphagia evaluation. Review scores from RBANS and engage in moderate to complex level reasoning/problem solving and attention tasks. Could engage in FAVRES as treatment SHAPER HAND - Acute Rehab Center Time Individual Time (minutes) - SHAPER HAND 60 Group Time (minutes) - SHAPER HAND 0 Concurrent Time (minutes) - SHAPER HAND 0 Co-Treatment Time (minutes) - SHAPER HAND 0 ARC Total Session Time (minutes) - SHAPER HAND 60 ARC Daily Total Session Time SHAPER HAND ARC Daily Total Session Time 60 ARC Daily Rehab Total Minutes 60 documented in this encounter H&P Notes * Sandi Saini MD - 01/17/2024 4:14 PM CDT Images from the original note were not included. [facility] Acute Rehabilitation Unit Admission History and Physical CHIEF COMPLAINT Cerebral infarct of the frontal lobes, parietal lobes, left supramarginal gyrus, embolic in nature,likely procedural complication HISTORY OF PRESENT ILLNESS Alcon Zamora is a 48 year old female with past medical history of Lizy-Danlos syndrome, mild persistent asthma, anxiety and depression, fibromyalgia presented for a planned catheter angiogram at [facility] for left sided pulsatile tinnitus on 01/09/24, found to have 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 Acute [...] exclude dural AVF. Patient was seen by [facility] interventional neuroradiology for diagnostic catheter cerebral [...] seen and evaluated by PT, OT, and SHAPER HAND who collectively recommended that patient would benefit from ongoing therapies in the acute inpatient rehabilitation setting, and patient was admitted on 01/17/2024. In review of recent therapy notes: - Per paper chart review: - PT: Min A transfers, gait FWW x 100 ft CGA. - OT: Transfers with min A, requires cutes to attend to right side - SHAPER HAND: No significant communication deficits, some difficulty with swallow sujata with pill swallowing. Has NOT had formal SHAPER HAND assessment, will benefit from full cognitive/linguistic assessment. 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 Patient states she alsohas trouble swallowing pills, [...] PAST MEDICAL HISTORY Reviewed and updated in [facility]. Past Medical History: Diagnosis Date [...] asthma SURGICAL HISTORY Reviewed and updated in [facility]. Past Surgical History: Procedure Laterality Date C SCRAP PREPARER PROCEDURE DATE: vag del. C SCRAP PREPARER PROCEDURE DATE: 2000 tubal ligation C SCRAP PREPARER PROCEDURE DATE: 1994 D&C CARDIAC SURGERY 06/2006 heart defect repair ESOPHAGOSCOPY, GASTROSCOPY, DUODENOSCOPY (EGD), COMBINED N/A 02/08/2021 Procedure: ESOPHAGOGASTRODUODENOSCOPY (EGD); Surgeon: Tuan Miller MD; Location: GI GI SURGERY 09/2020 gallbladder removed HC KNEE SCOPE,MED/LAT MENISECTOMY 08/04/13 LT HEART CATH, CLOSURE ATRIAL SEPTAL DEFECT 06/20/06 amplatzer septal occluder- serial #[id number] RW SCRAP PREPARER (ABSTRACTED) pneumonia several times SURGICAL PATHOLOGY EXAM 02/2012 excision of lipoma on chest wall ZZC VAGINAL HYSTERECTOMY 01/30/06 SOCIAL HISTORY Reviewed and updated in [facility]. Living Situation: Lives with Sandor, in split level home , 2 [address] home with rail in front door, no rail in garage (also 2 [address]), 8-9 steps to get to a floor with a bedroom or bathroom. 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 No Social History Narrative Not on file Social Determinants of Health Financial Resource Strain: Low Risk (01/10/2023) Received from [facility] Overall Financial Resource Strain (CARDIA) Difficulty of Paying Living Expenses: Not hard at all Food Insecurity: No Food Insecurity (01/10/2023) Received from [facility] Hunger Vital Sign Worried About Running Out of Food in the Last Year: Never true Ran Out of Food in the Last Year: Never true Transportation Needs: No Transportation Needs (01/10/2023) Received from [facility] PRAPARE - Transportation Lack of Transportation (Medical): No Lack of Transportation (Non-Medical): No Physical Activity: Sufficiently Active (01/10/2023) Received from [facility] Exercise Vital Sign Days of Exercise per Week: 5 days Minutes of Exercise per Session: 30 min Stress: Stress Concern Present (01/10/2023) Received from [facility], [facility] [employer] [place] [employer] - Occupational Stress Questionnaire Feeling of Stress : Rather much Social Connections: Socially Isolated (01/10/2023) Received from [facility], [facility] Social Connection and Isolation Panel [NHANES] Frequency of Communication with Friends and Family: Once a week Frequency of Social Gatherings with Friends and Family: Once a week Attends Spiritism Services: Never Active Member of Clubs or Organizations: No Attends Club or Organization Meetings: Never Marital Status: Interpersonal Safety: Not At Risk (01/10/2023) Received from [facility] Humiliation, Afraid, Rape, and Kick questionnaire Fear of Current or Ex-Partner: No Emotionally Abused: No Physically Abused: No Sexually Abused: No Housing Stability: Low Risk (01/10/2023) Received from [facility], [facility] Housing Stability Vital Sign Unable to Pay for Housing in the Last Year: No Number of Places Lived in the Last Year: 1 Unstable Housing in the Last Year: No FAMILY HISTORY Reviewed and updated in [facility]. Family History Problem Relation Age of Onset [...] 0 fluticasone (FLONASE) 50 MCG/ACT nasal spray [place] 2 sprays into both nostrils daily 16 [...] 9th, 10th CN: palate elevates symmetrically - 11 CN: sternocleidomastoids and trapezii strong - CN: tongue midline and without fasciculations Sensory: Normal to light touch in bilateral upper and lower extremities Motor: Right Left Shoulder abd 3/5 5/5 Elbow Flexion 3/5 5/5 Elbow Extension 3/5 5/5 Wrist Extension 3/5 5/5 Wrist Flexion 3/5 5/5 FDP 3/5 5/5 Abd dig. Minimi / 5/5 Hip Flexion 5 5/5 Knee Extension 12/19 5/5 Knee Flexion 12/19 5/5 Dorsiflexion / 5/5 EHL / 5/5 Plantarflexion /5 5/5 Carter's test: negative bilaterally Babinski reflex: [...] presented for a planned catheter angiogram at [facility] for left sided pulsatile tinnitus, found to have multiple acute ischemic infarctsof the frontal lobes, parietal lobes and left supramarginal gyrus after procedure with associated right sided weakness and numbness, likely embolic in nature secondary to procedure complication, complicated by post-stroke seizures, now being admitted on 01/17/2024 at [facility] for acute inpatient rehabilitation. Patient will require and benefit from PT, OT, and SHAPER HAND services as well as all of the ancillary services offered in the inpatient rehab setting. Admission to acute inpatient rehab: 01/17/2024 Impairment group code: 01.2 Right body, left brain stroke, multiple acute ischemic infarcts in the frontal and parietal lobes, left supramarginal gyrus following angiogram PT, OT and SHAPER HAND 60 minutes of each on a daily basis, in addition to rehab nursing and close management of anime designer. Impairment of ADL's: Impairment in strength, endurance, [...] # Headaches, frontal Patient was seen by [facility] interventional neuroradiology for diagnostic catheter cerebral angiogram for left sided pulsatile tinnitus. 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, parietal lobes and left supramarginal gyrus, neurology believed embolic in nature, likely procedural complication - PT, OT, SHAPER HAND - Secondary stroke ppx: - BP: Goal [...] activity at acute hospital Post-stroke seizures noted 30 early AM at acute hospital, given Keppra [...] need during rehab stay # Asthma - BROTH SETTER Breo Ellipta qday # Bowel: States [...] presented for a planned catheter angiogram at [facility] for left sided pulsatile tinnitus, found to have 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 Provider Information Primary Care Physician: Denise Woodson [phone] [address] [facility] [address] [facility] will schedule PCP apt at discharge. Prosthetic Makeup Designer: SONALI Mental Health/Chemical Dependency: Diagnosis: Pt reported [...] drugs. Support/Services in Place: medication. Services Needed/Recommended: [place] [facility] support while on ARU available. Sexuality/Intimacy: Not discussed Support System Marital Status: Family support: Sandor (), Silas (son), Erica (daughter) in [place], Kenji (son) in [place]. Pt has 2 granddaughters. Other support available: sonali Community Resources Current in home services: Pt denies current home services. 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. Income Source: Pt work and also works Education: not discussed Financial Concerns: Pt reported trying to figure out short term disability and FMLA. Dual householdand need to figure out finances. Pt will talk to work on Saturday for FMLA paperwork. PT reported short term disability won't start until 30 days. Informed Pt to get FMLA paperwork and give it directlyto Doctor. Insurance: [employer] OPEN ACCESS Discharge Plan Patient and family discharge goal: TBD, pending progress. Goal is to go home. Provided Education on discharge plan: Evaluations and discharge recommendations pending. Patient agreeable to discharge plan: Pending further discussion. Evaluations and discharge recommendations pending. Provided education and attained signature for Medicare IM and IRF Patient Rights and Privacy Information provided to patient : SONALI Provided patient with [facility] Resources: Provided booklet and made referralto [facility]. Barriers to discharge: none at the moment Discharge Recommendations Disposition: See above Transportation Needs: Additional comments Discharge TBD, ELOS +/- 14 days . Evals and discharge needs pending. SW will remain available and continue to follow as needs arise. Pt would like information on how to transfer her care to [facility]. Doesn't want to go back to [place]. VIDHYA Pain Assessment Pain Effect on Sleep [...] Rarely or not at all Leanna Call [facility], [facility], [facility] Data Lead Social Work [address] [place] [address] (PH [phone] or [phone]) documented in this encounter Nursing Notes * [...] response called, aid sent urgent message via [employer] and I entered the room pt appearedto [...] given per directive of practitioner. Transferred to [address] [place] [address]. Goal Outcome Evaluation: * Plan of Care - Tulio Alva SLP - 01/19/2024 10:07 PM CDT Speech Language Therapy Discharge Summary Reason for therapy discharge: Discharged to acute care hospital Progress towards therapy goal(s). See goals on Care Plan in [facility] electronic health record for goal details. [...] Feldman OTR - 01/19/2024 12:27 PM CDT Fabric Coating Supervisor Post-Acute Rehab OT: Discharge Plan: Home with [...] to bedroom/bathroom. Pt has a high height stave hewer tub/shower combo (need to measure to see [...] Evaluation: * Plan of Care - Janna Najera, OTR - 01/18/2024 4:18 PM CDT Images from the original note were not included. Fabric Coating Supervisor Post-Acute Rehab OT: Discharge Plan: Home with [...] to bedroom/bathroom. Pt has a high height stave hewer tub/shower combo (need to measure to see [...] toilets. Tub/shower combo upstairs with high krystle stave hewer tub. Downstairs bathroom has a standard tub/shower combo. No grab bars in bathroom. 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 Was previouslyI with all ADLs and IADLs [...] strength 4/5 MMT Hand Strength Right hand assistant to the president (pounds) 30 Left hand assistant to the president (pounds) 48 Coordination Left hand, nine hole [...] from skilled OT services toreturn to PLOF. JARAMILLO 2 weeks. OT Total Evaluation Time OT Eval, Moderate Complexity Minutes (52549) 30 OT Goals Therapy Frequency (OT) 6 [...] Management Self-Care/Home Mgmt/ADL, Compensatory, Meal Prep Minutes (13928) 30 Symptoms Noted During/After Treatment (Meal Preparation/Planning Training) fatigue Treatment Detail/Skilled Intervention Focus on environmental room modifications to provide easier walkway for pt. Pt participated in g/h and oral cares at [facility]. Pt completed UB and LB dressing EOB. [...] Dressing (Pants/Undergarments) Describe performance Min A to ice puller hips, pt able to thread BLE [...] PRN, Danya You PA, 1,000 mg at 01/17/242121 albuterol (PROVENTIL HFA/VENTOLIN HFA) inhaler, 1-2 puff, [...] Also wants to establish care with a [facility] neurologist and follow up with the complications that occurred at [facility], where she was previouslyhospitalized. Sticky note left [...] Description 02/26/2024 1:40 PM CDT Appointment [facility] [address] [place] [address] [place] [phone] Denise Woodson Ra, COSMETICIAN APPRENTICE HAND ICER [address] [place] [address] 02/26/2024 2:15 PM CDT Therapy Visit [facility] [address] [place] [phone] Danya You, AMAIRANI [address] [place], [place] [phone] Charis Chacon, [facility] [address] [place] [address] 02/26/2024 3:00 PM CDT Therapy Visit [address] [phone] Danya You, PA [address] [place], [place] [phone] Isabel Beaulieu, OTJah [address] [address] 02/27/2024 4:45 PM CDT Therapy Visit [address] [phone] Danya You, PA [address] [place], [place] [address] Vanessa Duggan, PT 03/05/2024 1:30 PM CDT Therapy Visit [facility] [address] [place] [phone] Danya You PA [address] [place] [address] Isabel Beaulieu, OTR [facility] [address] [facility] [place] [address] 03/05/2024 3:15 PM CDT [facility] [address] [place] [phone] Danya You, PA [address] [address] Charis Chacon, [facility] [address] [place] [address] 03/05/2024 4:15 PM CDT Therapy Visit [facility] [address] [place] [phone] Danya You, AMAIRANI [address] [address] Delicia George, PT [facility] [address] [place] [address] 03/11/2024 2:15 PM CDT Therapy Visit [facility] [address] [place] [phone] Danya You, AMAIRANI [address] [address] Isabel Beaulieu, OTR [facility] [address] [place] [address] 03/11/2024 3:00 PM CDT Therapy Visit [address] [phone] Danya You, AMAIRANI [address] [address] Charis Chacon, [facility] [address] [place] [address] 03/11/2024 4:15 PM CDT Therapy Visit [address] [phone] Danya You, AMAIRANI [address] [address] Delicia George, PT [facility] [address] [place] [address] 03/17/2024 10:00 AM CDT Office Visit [facility] [address] [place] [phone] Denise Woodson Ra, COSMETICIAN APPRENTICE HAND ICER [address] [place], [place] [phone] 03/17/2024 1:30 PM CDT Therapy Visit [address] [phone] Danya You PA [address] [place], [place] [address] [address] Isabel Beaulieu, OTR [address] [address] 03/17/2024 2:30 PM CDT Therapy Visit [facility] [address] [place] [phone] Danya You, AMAIRANI 2450 [facility] [address] [place] [address] Charis Chacon, [facility] [address] [place] [address] 03/17/2024 4:00 PM CDT Therapy Visit [address] [phone] Danya You, PA 7000 [facility] [address] [place] [address] Vanessa Duggan, PT 03/23/2024 10:30 AM CDT Office Visit [facility] [address] [place] [phone] Denise Woodson Ra, COSMETICIAN APPRENTICE HAND ICER [address] [place], [place] [phone] 03/26/2024 1:30 PM CDT Therapy Visit [address] [phone] Danya You PA [address] [address] Isabel Beaulieu, JAIMIE [address] [address] 03/26/2024 2:30 PM CDT Therapy Visit [facility] [address] [place] [phone] Danya You PA [address] [place] [address] Charis Chacon SLP [facility] [address] [place] [address] 03/26/2024 3:30 PM CDT Therapy Visit [facility] [address] [place] [phone] Danya You PA [address] [place] [address] Delicia George, PT [facility] [address] [address] 04/02/2024 2:15 PM CDT Therapy Visit [facility] [address] [place] [phone] Danya You, AMAIRANI [address] [place] [address] Isabel Beaulieu, OTR [facility] [address] [place] [address] 04/02/2024 3:15 PM CDT Therapy Visit [facility] [address] [place] [phone] Danya You, PA [address] [place] [address] Charis Chacon, [facility] [address] [place] [address] 04/02/2024 4:15 PM CDT Therapy Visit [address] [phone] Danya You, PA [address] [address] Delicia George, PT [address] [address] 04/09/2024 3:15 PM CDT Therapy Visit [address] [phone] Danya You, PA [facility] [address] [address] Charis Chacon, [facility] [place] [address] 04/09/2024 4:15 PM CDT Therapy Visit [address] [phone] Danya You, PA [address] [place] [address] Delicia George, PT [address] [address] 04/15/2024 9:30 AM CDT Therapy Visit [address] [phone] Danya You PA [facility] [address] [address] Danya Restrepo, SHAPER HAND 04/23/2024 2:30 PM CDT Therapy Visit [facility] [place] [address] [place] [phone] Danya You, PA [address] [place] [address] Charis Chacon, [facility] [address] [place] [address] 05/05/2024 2:30 PM CDT Office Visit [facility] Epilepsy [facility] [address], [address] [place] [phone] Rohit Barcenas MD [address] [facility] [address] [place], [place] [address] 06/23/2024 11:00 AM CDT Virtual Visit [facility] [address] [place] [phone] Kristin Vázquez, [facility] [address] [place] [phone] 06/30/2024 2:00 PM CDT Virtual Visit [facility] Mental [facility] & [facility] [address] [place] [phone] Kristin Vázquez, [facility] [address] [place] [phone] documented as of this encounter Procedures Procedure [...] the vertex were obtained without intravenous contrast. Dishwasher Preparer (topogram) image(s) also obtained and reviewed. FINDINGS: [...] the vertex were obtained without intravenous contrast. Dishwasher Preparer (topogram) image(s) also obtained and reviewed. FINDINGS: [...] the findings. ANA LATHAM MD Randy Kwon COSMETICIAN APPRENTICE HAND ICER IMG CT ORDERABLES * EKG 12-lead, complete (01/19/2024 10:33 PM CDT) Systolic Blood Pressure mmHg RADIOLOGY RESULTS Diastolic Blood Pressure mmHg RADIOLOGY RESULTS Ventricular Rate 84 BPM RAD IOLOGY RESULTS Atrial Rate 84 BPM RADIOLOG Y RESULTS NM Interval 168 ms RADIOLOG Y RESULTS QRS Duration 82 ms RADIOLO GY RESULTS QT 374 ms RADIOLOGY RESULTS QTc 441 ms RADIOLOGY RESULTS P Portal 30 degrees RADIOLOGY RESULTS R AXIS 36 degrees RADIOLOGY RESULTS T Portal -13 degrees RADIOLOGY RESULTS Interpretation ECG Sinus rhythm with frequent Premature ventricular complexes Abnormal ECG No previous ECGs available Confirmed by MD MAN JANE ([id number]) on 01/20/2024 9:02:28 AM RADIOLOGY RESULTS 01/19/2024 10:3 3 PM CDT 01/20/2024 9:02 AM CDT Randy Kwon APRN HAND ICER ECG ORDERABLES RADIOLOGY RESULTS * (ABNORMAL) CBC [...] ORDER NASRIN UR LABORATORY [facility] Acute [facility] Lab [address] [place] [address], Room [address] * Fibrinogen activity (01/19/2024 9:33 PM CDT) [facility] Fibrinogen Activity 417 170 - 490 mg/dL 01/19/2024 10:18 PM CDT UR LABORATORY Blood BLOOD SPECIMEN / Unknown Venipuncture / Unknown 01/19/2024 9:33 PM CDT 01/19/2024 9:54 PM CDT Randy Kwon APRN, CNP LAB - BLOOD ORDER NASRIN UR LABORATORY [facility] Acute [facility] Lab [address] [place] [address], [address] * Partial thromboplastin time (01/19/2024 9:33 PM CDT) Pathologist [facility] aPTT 25 22 - 38 Seconds 01/19/2024 10:18 PM CDT UR LABORATORY Blood BLOOD SPECIMEN / Unknown Venipuncture / Unknown 01/19/2024 9:33 PM CDT 01/19/2024 9:54 PM CDT Randy Kwon APRN [facility] LAB - BLOOD ORDER NASRIN UR LABORATORY [facility] Acute Care Lab [address] [facility], Room [address] [phone], [place] * INR (01/19/2024 9:33 PM CDT) INR 0.87 0.85 - 1.15 01/19/2024 10:17 PM CDT UR LABORATORY Blood BLOOD SPECIMEN / Unknown Venipuncture / Unknown 01/19/2024 9:33 PM CDT 01/19/2024 9:54 PM CDT Randy Kwon APRN [facility] LAB - BLOOD ORDER NASRIN UR LABORATORY [facility] Acute Care Lab [facility], Room [address] [address] * Prolactin (01/19/2024 9:33 PM CDT) Prolactin 22 5 - 23 ng/mL 01/19/2024 11:23 PM CDT UU LABORATORY Blood BLOOD SPECIMEN / Unknown Venipuncture / Unknown 01/19/2024 9:33 PM CDT 01/19/2024 9:54 PM CDT Randy Kwon APRN [facility] LAB - BLOOD ORDER NASRIN [facility]U LABORATORY [facility] Core Lab [address] [facility], [address] [place] [address] * Extra Green Top ([place] Heparin) Tube (01/18/2024 5:40 AM CDT) Hold Specimen JIC 01/18/2024 7:32 AM CDT UR LABORATORY Blood STRUCTURE OF RIGHT UPPER LIMB / Unknown Venipuncture / Unknown 01/18/2024 5:40 AM CDT 01/18/2024 6:18 AM CDT Parminder Del Angel MD LAB - BLOOD ORDERABL ES UR LABORATORY [facility] Acute Care Lab [facility], Room [place] [phone] * Platelet count - Routine (01/18/2024 5:40 AM CDT) Platelet Count 217 150 - 450 10e3/uL 01/18/2024 6:15 AM CDT UR LABORATORY Blood STRUCTURE OF RIGHT UPPER LIMB / Unknown Venipuncture / Unknown 01/18/2024 5:40 AM CDT 01/18/2024 6:13 AM CDT Parminder Del Angel MD LAB - BLOOD ORDERABL ES UR LABORATORY [facility] Acute Care Lab [address] [place] [address], Room [place] [phone] documented in this encounter Visit Diagnoses Diagnosis [...] 1 puff, Inhalation, DAILY, First dose on [facility] 01/18/24 at 0800, *Do not use more [...] at 0800 0803 ($Given - Provider: Angie Tirpp RN) 0736 ($Given - Provider: Angie Tripp [...] Tripp RN) 0741 ($Given - Provider: Angie Tripp, GEMA) levETIRAcetam (KEPPRA) tablet 750 mg 750 mg, Oral, 2 TIMES DAILY, First dose on Sat01/17/24 at 2099 2122 ($Given - Provider: Per Ma, GEMA) 0803 ($Given - Provider: Angie Tripp RN)2114 ($Given - Provider: Escobar David RN) 0736 ($Given - Provider: Angie Tripp, GEMA)09 (Canceled Entry - Provider: Angie Tripp RN - Comment: given early nper pt request)2136 ($Given - Provider: Escobar David RN) magnesium oxide (MAG-OX) tablet 400 mg 400 [...] mg dose is ineffective, contact the provider. 3 ($Given - Provider: Escobar David RN) LORazepam [...] documented as of this encounter Care Teams Admission Liaison Relationship Specialty Start Date End Date Yung Madrigal MD RETIRED PCP - Orthopaedics Orthopedics 08/26/12 01/20/24 Winston Villatoro OD [facility] [place] [address] [place] [address] PCP - Ophthalmology Ophthalmology 02/11/13 Denise Woodson Ra, APRN HAND ICER [address] [address] [address] PCP - General Family Practice 09/21/20 Denise Woodson Ra, APRN HAND ICER [address] [address] Assigned PCP 07/17/20 documented as of this encounter
--- OUTSIDE RECORDS SUMMARY | 2024-02-22 15:25 | XMS_ITS | Encounter Summary ---
Author Organization [employer] Address [address] [place] [address]. [place] [address] Care Team Providers Care Eye Clinic Manager Name Role Phone Yung Madrigal MD Unavailable Unavailable Winston Villatoro OD Unavailable [phone] Denise Woodson Ra, APRN ROCKET MOTOR MECHANIC Unavailable +- [phone] Denise Woodson Ra WINDOW AND DOOR INSTALLER ROCKET MOTOR MECHANIC Primary Care Provid er Usha Simon APRN ROCKET MOTOR MECHANIC Unavailable + [phone] Dangelo Salinas MD Unavailable Usha Simon APRN ROCKET MOTOR MECHANIC Unavailable + [phone] Anastasia Stearns RN Unavailable +[phone] Germaine Lopez CHW Unavailable [phone] Reason for Visit * Reason Comments Medication Refill Encounter Details Date Type Department Care Team (Late st Contact Info) Description 02/19/2022 Refill [facility] [address] [place] [address] Denise Woodson Ra, APRN ROCKET MOTOR MECHANIC [address] [place] [address] Medication Refill Social History Tobacco [...] Info) Description 02/26/2024 1:40 PM CDT Appointment [facility] Specialty Care Center Imaging [address] [place] [address] Denise Woodson Ra, WINDOW AND DOOR INSTALLER ROCKET MOTOR MECHANIC [address] [place] [address] 02/26/2024 2:15 PM CDT Therapy Visit [facility] 150 [place] [phone] Danya You PA [address] S[address] [place] [address] 122544 Charis Chacon, J[facility]AN [facility] [address] [place] [address] 02/26/2024 3:00 PM CDT Therapy Visit [facility] 150 [place] [phone] Danya You PA [address] [place], [place] [address] Isabel Beaulieu, OTR [facility] [address] [place] [address] 02/27/2024 4:45 PM CDT [facility] [address] [place] [phone] Danya You, PA [address] [place] [address] Vanessa Duggan, PT 03/05/2024 1:30 PM CDT Therapy Visit [address] [phone] Danya You PA [address] [place] [address] Isabel Beaulieu, OTR [facility] [address] [place] [address] 03/05/2024 3:15 PM CDT Therapy Visit [address] [phone] Danya You, AMAIRANI [address] [place] [address] 987854 Charis Chacon, [facility] [address] [place] [address] 03/05/2024 4:15 PM CDT Therapy Visit [facility] 150 [place] [address] Danya You, AMAIRANI [address] [place] [address] 925154 Delicia George, PT [address] [address] 03/11/2024 2:15 PM CDT Therapy Visit [address] [phone] Danya You, AMAIRANI [address] [address] Isabel Beaulieu, OTR [address] [address] 03/11/2024 3:00 PM CDT Therapy Visit [address] [phone] Danya You, PA [facility] [address] [address] Charis Chacon, BAR TACKER [facility] [address] [place] [address] 03/11/2024 4:15 PM CDT Therapy Visit [address] [phone] Danya You, PA 2450 [facility] [address] [address] Delicia George, PT [address] [address] 03/17/2024 10:00 AM CDT Office Visit [address] [phone] Denise Woodson Ra, WINDOW AND DOOR INSTALLER ROCKET MOTOR MECHANIC [address] [place], [place] 89380[address] 03/17/2024 1:30 PM CDT Therapy Visit [address] [phone] Danya You, PA [facility] [address] [place] [address] Isabel Beaulieu OTR [address] [address] 03/17/2024 2:30 PM CDT Therapy Visit [address] [phone] Danya You, PA [facility] [address] [address] Charis Chacon, [facility] [address] [place] [address] 03/17/2024 4:00 PM CDT Therapy Visit [address] [phone] Danya You, PA [address] [place] [address] [address] [place] [address] Vanessa Duggan, GALINA 03/23/2024 10:30 AM CDT Office Visit [facility] [address] [place] [phone] Denise Woodson Ra, WINDOW AND DOOR INSTALLER ROCKET MOTOR MECHANIC [address] [place], [place] 9964[address] 03/26/2024 1:30 PM CDT Therapy Visit [address] [phone] Danya You, AMAIRANI [address] [place] [address] [address] Isabel Beaulieu, OTR [address] [address] 03/26/2024 2:30 PM CDT Therapy Visit [address] [phone] Danya You, AMAIRANI [address] [address] Charis Chacon, BAR TACKER [facility] [address] [place] [address] 03/26/2024 3:30 PM CDT Therapy Visit [address] [phone] Danya You, PA 2450 [facility] [address] [address] Delicia George, PT [facility] [address] [place] [address] 04/02/2024 2:15 PM CDT Therapy Visit [address] [phone] Danya You, PA [address] [address] Isabel Beaulieu, OTR [facility] [address] [place] [address] 04/02/2024 3:15 PM CDT Therapy Visit [address] [phone] Danya You, PA [address] [address] Charis Chacon, [facility] [address] [place] [address] 04/02/2024 4:15 PM CDT Therapy Visit [address] [phone] Danya You, PA [address] [address] Delicia George, PT [facility] [address] [place] [address] 04/09/2024 3:15 PM CDT Therapy Visit [address] [phone] Danya You, PA 2450 [facility] [address] [place] [address] Charis Chacon, [facility] [address] [place] [address] 04/09/2024 4:15 PM CDT Therapy Visit [address] [phone] Danya You PA [address] [place] [address] Delicia George, PT [facility] 909 [place] [address] 04/15/2024 9:30 AM CDT Therapy Visit [facility] 150 [place] [phone] Danya You, PA [address] [place] [address] Danya Restrepo, BAR TACKER 04/23/2024 2:30 PM CDT Therapy Visit [address] [phone] Danya You, PA [address] [place] [address] [address] Charis Chacon, J[facility]AN [facility] [address] [place] [address] 05/05/2024 2:30 PM CDT Office Visit [facility] Epilepsy Care [address], [address] [place] [phone] Rohit Barcenas MD 420 [facility] [address] [place] [address] 06/23/2024 11:00 AM CDT Virtual Visit [facility] Mental Health & Addiction [facility] [address] [place] [address] Kristin Vázquez, [facility] 6[address] [place] [address] 06/30/2024 2:00 PM CDT Virtual Visit [facility] Mental Health & Addiction [facility] 6401 [facility] [place] [phone] Gurpreet Kristin Saez, [facility] [address] [facility] [place] [phone] documented as of this encounter Visit Diagnoses Diagnosis Moderate persistent asthma without complication Unspecified asthma documented in this encounter Additional Health Concerns Assessment Noted Time PHQ-9 Depression Total Score: 0 06/23/20 21 4:11 PM CDT documented as of this encounter Care Teams Eye Clinic Manager Relationship Specialty Start Date End Date Yung Madrigal MD RETIRED PCP - Orthopaedics Orthopedics 08/26/12 01/20/24 Winston Villatoro OD [facility] 701 [facility] [address] [place] [address] PCP - Ophthalmology Ophthalmology 02/11/13 Denise Woodson Ra, APRN ROCKET MOTOR MECHANIC [address] [facility] [place] [address] PCP - General Family Practice 09/21/20 Denise Woodson Ra, APRN ROCKET MOTOR MECHANIC [address] [place] [address] Assigned PCP 07/17/20 Usha Simon APRN ROCKET MOTOR MECHANIC 909 [facility]2121[place] [address] Nurse Practitioner Neurological Surgery 01/24/24 Dangelo Salinas MD [address] [facility] [address] [address] Neurology 01/27/24 Usha Simon APRN ROCKET MOTOR MECHANIC [address] [place] [address] [address] Assigned Neuroscience Provider 02/06/24 Anastasia Stearns, RN Lead Supervisor Esters And Emulsifiers 02/06/24 Germaine Lopez, CHW Community Health Worker Primary Care - CC 02/18/24 documented as of this encounter
--- OUTSIDE RECORDS SUMMARY | 2024-02-22 15:26 | XMS_ITS | Encounter Summary ---
Author Organization [employer] Address [address] [place] [address]. [place] [address] Care Team Providers Care Bead Stringer Name Role Phone Yung Madrigal MD Unavailable Unavailable Winston Villatoro OD Unavailable [phone] Denise Woodson Ra, APRN ELECTRIC METER REPAIRER HELPER Unavailable +- [phone] Denise Woodson Ra, APRN ELECTRIC METER REPAIRER HELPER Primary Care Provid er Usha Simon APRN ELECTRIC METER REPAIRER HELPER Unavailable +- [phone] Dangelo Salinas MD Unavailable Usha Simon APRN ELECTRIC METER REPAIRER HELPER Unavailable + [phone] Anastasia Stearns RN Unavailable [phone] Germaine Lopez CHW Unavailable [phone] Reason for Visit * Reason Comments Medication Refill Encounter Details Date Type Department Care Team (Late st Contact Info) Description 06/11/2021 Refill M [address] [place] [phone] Denise Woodson Ra, APRN ELECTRIC METER REPAIRER HELPER [address] [place] [address] Medication Refill Social History Tobacco [...] 1:40 PM CDT Appointment [facility] Specialty Care Center Imaging [address] [place] [phone] Denise Woodson Ra, HORSE BUYER ELECTRIC METER REPAIRER HELPER [address] [facility] [place] [address] 02/26/2024 2:15 PM CDT Therapy Visit [address] [phone] Danya You, AMAIRANI SOTO [address] [place] [address] Charis Chacon, [facility] [address] [place] [address] 02/26/2024 3:00 PM CDT Therapy Visit [address] [phone] Danya You, PA [address] [place] [address] Isabel Beaulieu OTR [address] [address] 02/27/2024 4:45 PM CDT Therapy Visit [address] [phone] Danya You, PA Yohana0 [address] [place] [address] Vanessa Duggan, PT 03/05/2024 1:30 PM CDT Therapy Visit [address] [phone] Danya You, AMAIRANI [address] [place] [address] Isabel Beaulieu, OTR [address] [address] 03/05/2024 3:15 PM CDT Therapy Visit [address] [phone] Danya You, AMAIRANI [address] [address]64 Charis Chacon, TIRE MOLD TESTER [facility] [address] [place] [address] 03/05/2024 4:15 PM CDT Therapy Visit [address] [phone] Danya You, PA [address] [place] [address] 859374 Delicia George, PT [facility] 909 [place] [address] 03/11/2024 2:15 PM CDT Therapy Visit [address] [phone] Danya You, PA [address] [place] [address] 7734[address] Isabel Beaulieu, OTR [address] [address] 03/11/2024 3:00 PM CDT Therapy Visit [address] [phone] Danya You, PA 2450 [facility] [address] [address] Charis Chacon, [facility]AN [facility] [address] [place] [address] 03/11/2024 4:15 PM CDT Therapy Visit [address] [phone] Danya You, PA [facility] [address] [address] Delicia George, PT [facility] [address] [place] [address] 03/17/2024 10:00 AM CDT Office Visit [facility] [address] [place] [address] Denise Woodson Ra, HORSE BUYER [facility] [address] [place], [place] 47748[address] 03/17/2024 1:30 PM CDT Therapy Visit [address] [phone] Danya You, PA [address] [address] Isabel Beaulieu, OTR [facility] 150 [place] [address] 03/17/2024 2:30 PM CDT [facility] 150 [place] [phone] Danya You, AMAIRANI 2450 [facility] [address] [place], [place] [address] Charis Chacon, [facility] [address] [place] [address] 03/17/2024 4:00 PM CDT Therapy Visit [address] [phone] Danya You, PA [address] 183874 Vanessa Duggan, PT 03/23/2024 10:30 AM CDT Office Visit [facility] [address] [place] [address] Denise Woodson Ra, HORSE BUYER ELECTRIC METER REPAIRER HELPER [address] [place], [place] 3460[address] 03/26/2024 1:30 PM CDT Therapy Visit [facility] 150 [place] [phone] Danya You, AMAIRANI 2450 [facility] 213 [place] [address] Isabel Beaulieu, OTR [facility] 150 [place] [address] 03/26/2024 2:30 PM CDT Therapy Visit [address] [phone] Danya You, AMAIRANI 2450 [facility] [address] [address] Charis Chacon SLP [facility] [address] [place] [address] 03/26/2024 3:30 PM CDT Therapy Visit [address] [phone] Danya You, PA 2450 [facility] [address] [address] Delicia George, PT [facility] [address] [place] [address] 04/02/2024 2:15 PM CDT Therapy Visit [address] [phone] Danya You, PA 2450 [facility] [address] [address] Isabel Beaulieu OTR [address] [address] 04/02/2024 3:15 PM CDT Therapy Visit [address] [phone] Danya You PA 2450 [facility] [address] [address] Charis Chacon, [facility]AN [facility] [address] [place] [address] 04/02/2024 4:15 PM CDT Therapy Visit [address] [phone] Danya You, AMAIRANI [address] [address] Delicia George, PT [address] 6[address] 04/09/2024 3:15 PM CDT Therapy Visit [address] [phone] Danya You, PA [address] [address] Charis Chacon, [facility]AN [facility] [address] [place] [address] 04/09/2024 4:15 PM CDT Therapy Visit [address] [phone] Danya You, PA [facility] [address] [address] Delicia George, PT [address] [address] 04/15/2024 9:30 AM CDT Therapy Visit [address] [phone] Danya You PA [address] [place] [address] Danya Restrepo TIRE MOLD TESTER 04/23/2024 2:30 PM CDT Therapy Visit [facility] 150 [place] [phone] Danya You PA [address] [place] [address] Charis Chacon, [facility] [address] [place] [address] 05/05/2024 2:30 PM CDT Office Visit M [facility] Epilepsy [facility] [address], [address] [place] [phone] Rohit Barcenas MD [address] [place] [address] 295 [place] [address] 06/23/2024 11:00 AM CDT Virtual Visit [facility] Mental Health & Addiction [facility] 6401 [place] [address] Kristin Vázquez, [facility] 7724 [place] [phone] 06/30/2024 2:00 PM CDT Virtual Visit [facility] Mental Health & Addiction [facility] [address]01 [place] [phone] Kristin Vázquez, [facility] 0241 [place] [address] documented as of this encounter Visit Diagnoses Diagnosis Insomnia, unspecified type documented in this encounter Additional Health Concerns Assessment Noted Time PHQ-9 Depression Total Score: 0 01/05/20 21 9:31 AM CDT documented as of this encounter Care Teams Bead Stringer Relationship Specialty Start Date End Date Yung Madrigal MD RETIRED PCP - Orthopaedics Orthopedics 08/26/12 01/20/24 Winston Villatoro, OD [facility] [place] [address] [place] [address] PCP - Ophthalmology Ophthalmology 02/11/13 Denise Woodson Ra, APRN ELECTRIC METER REPAIRER HELPER [address] [place] [address] PCP - General Family Practice 09/21/20 Denise Woodson Ra, APRN ELECTRIC METER REPAIRER HELPER [address] [place] [address] Assigned PCP 07/17/20 Usha Simon APRN ELECTRIC METER REPAIRER HELPER [address] [place] [address] 432[address] Nurse Practitioner Neurological Surgery 01/24/24 Dangelo Salinas MD [address] [address] [id number] Neurology 01/27/24 Usha Simon APRN ELECTRIC METER REPAIRER HELPER [address] 2[address] Assigned Neuroscience Provider 02/06/24 Anastasia Stearns, RN Lead Pigment Grinder 02/06/24 Germaine Lopez, W Community Health Worker Primary Care - CC 02/18/24 documented as of this encounter
--- OUTSIDE RECORDS SUMMARY | 2024-02-22 15:26 | XMS_ITS | Encounter Summary ---
Author Organization [place] Address [address] [place] [address] Care Team Providers Care Go Cart Mechanic Name Role Phone Yung Madrigal MD Unavailable Unavailable Winston Villatoro OD Unavailable [phone] Serum, Clara Garland MD Primary Care Provider Serum, Clara Garland MD Unavailable [phone] Denise Woodson Ra PRINTING EQUIPMENT MECHANIC HEAD OF PRECISION TARGETING Unavailable + [phone] Denise Woodson Ra PRINTING EQUIPMENT MECHANIC HEAD OF PRECISION TARGETING Primary Care Provid er Usha Simon APRN HEAD OF PRECISION TARGETING Unavailable [phone] Dangelo Salinas MD Unavailable Usha Simon PRINTING EQUIPMENT MECHANIC HEAD OF PRECISION TARGETING Unavailable [phone]- [phone] Anastasia Stearns RN Unavailable [phone] Germaine Lopez [facility] Unavailable [phone] Reason for Visit * Reason Onset Date Comments LAB REQUEST 06/16/2019 Encounter Details Date Type Department Care Team (Late st Contact Info) Description 06/16/2019 [facility] [address] [place] [address] Serum, Clara Garland MD [address] [place] [address] LAB REQUEST Social History Tobacco [...] RN - 06/16/2019 4:17 PM CDT See [employer] message regarding yesterday's appointment. Patient requesting to check TSH and antibodies for pt reported possible yonas's. Pended TSH for provider review. documented in this encounter Plan of Treatment Upcoming Encounters Date Type Department Care Team (Late st Contact Info) Description 02/26/2024 1:40 PM CDT Appointment [facility] Imaging [address] [place] [phone] Denise Woodson Ra, PRINTING EQUIPMENT MECHANIC HEAD OF PRECISION TARGETING [address] [place] [address] 02/26/2024 2:15 PM CDT Therapy Visit [address] [phone] Danya You PA [address] [id number] Charis Chacon, [facility] [address] [place] [address] 02/26/2024 3:00 PM CDT Therapy Visit [address] [phone] Danya You PA [address] [place], [place] 848884 Isabel Beaulieu, OTR [facility] [address] [place] [address] 02/27/2024 4:45 PM CDT Therapy Visit [facility] 150 [place] [address] Danya You, AMAIRANI [address] [place] [address] Vanessa Duggan, PT 03/05/2024 1:30 PM CDT Therapy Visit [facility] [address] [place] [address] Danya You, AMAIRANI [address] [place] [address] 717604 Isabel Beaulieu, OTR [facility] 150 [place] [address] 03/05/2024 3:15 PM CDT Therapy Visit [facility] [address] [place] [address] Danya You, PA [address] 5357[address] Charis Chacon, [facility] [address] [place] [address] 03/05/2024 4:15 PM CDT Therapy Visit [facility] [address] [place] [address] Danya You PA [address] 141074 Delicia George, PT [address] [address] 03/11/2024 2:15 PM CDT Therapy Visit [address] [phone] Danya You, PA [address] [address] Isabel Beaulieu OTR [address] [address] 03/11/2024 3:00 PM CDT Therapy Visit [address] [phone] Danya You, PA [facility] [address] Charis Chacon, [facility] [address] [place] [address] 03/11/2024 4:15 PM CDT Therapy Visit [address] [phone] Danya You, PA [address] [address] Delicia George, PT [address] [address] 03/17/2024 10:00 AM CDT Office Visit [address] [phone] Denise Woodson Ra, PRINTING EQUIPMENT MECHANIC HEAD OF PRECISION TARGETING [address] [place], [place] [address] 03/17/2024 1:30 PM CDT Therapy Visit [address] [address] Danya You, PA [facility] [address] [place] [address] Isabel Beaulieu OTR [address] [address] 03/17/2024 2:30 PM CDT Therapy Visit [address] [phone] Danya You, PA [facility] [address] [address] Charis Chacon, [facility] [address] [place] [address] 03/17/2024 4:00 PM CDT Therapy Visit [address] [phone] Danya You, PA 2450 [facility] [address] [address] Vanessa Duggan, PT 03/23/2024 10:30 AM CDT Office Visit [facility] [address] [place] [phone] Denise Woodson Ra, PRINTING EQUIPMENT MECHANIC HEAD OF PRECISION TARGETING [address] [place], [place] 183[address] 03/26/2024 1:30 PM CDT Therapy Visit [address] [phone] Danya You, PA [address] [place] [address] Isabel Beaulieu OTR [address] [address] 03/26/2024 2:30 PM CDT Therapy Visit [address] [phone] Danya You, AMAIRANI [address] [place] [address] Charis Chacon, [facility] [address] [place] [address] 03/26/2024 3:30 PM CDT Therapy Visit [address] [phone] Danya You, PA [address] [place] [address] Delicia George, PT [facility] [address] [place] [address] 04/02/2024 2:15 PM CDT Therapy Visit [address] [phone] Danya You, PA [address] [place] [address] 807154 Isabel Beaulieu, OTR [facility] [address] [place] [address] 04/02/2024 3:15 PM CDT Therapy Visit [address] [phone] Danya You, PA [address] [address] Charis Chacon, [facility] [address] [place], [place] [address] 04/02/2024 4:15 PM CDT Therapy Visit [address] [phone] Danya You, PA [address] [address] Delicia George, PT [facility] [address] [address] 04/09/2024 3:15 PM CDT Therapy Visit [address] [phone] Dayna You, PA [address] [place] [address] Charis Chacon, [facility] [address] [place] [address] 04/09/2024 4:15 PM CDT Therapy Visit [address] [phone] Danya You PA [address] [place] [address] Delicia George, PT [facility] [address] [place] [address] 04/15/2024 9:30 AM CDT Therapy Visit [facility] [address] [place] [address] Danya You, PA [address] [address] Danya Restrepo, SUPERVISOR [employer]PUTER [employer]PERATIONS 04/23/2024 2:30 PM CDT Therapy Visit [address] [phone] Danya You, PA [facility] [address] [address] Charis Chacon, [facility] [address] [place] [address] 05/05/2024 2:30 PM CDT Office Visit [facility] [address], [address] [place] [address] Rohit Barcenas MD 420 [facility] 295 [place] [address] 06/23/2024 11:00 AM CDT Virtual Visit [facility] [address] [facility] [place] [address] Kristin Vázquez, [facility] [address] [facility] [place] [phone] 06/30/2024 2:00 PM CDT Virtual Visit [facility] [address] [facility] [place] [phone] Kristin Vázquez, [facility] [address] [facility] [place] [phone] documented as of this encounter Results * Follicle stimulating hormone (06/22/2019 3:36 PM CDT) FSH 9.5 IU/L 06/23/2019 2:32 PM CDT [facility] Comment: FSH Reference Range Female: Follicular ?2.5-10.2 ?Mid-cycle ? 3.4-33.4 ?Luteal ?1.5-9.1 ?Postmenopausal ??23.0-116.3 Blood specimen (specimen) 06/22/2019 3:36 PM CDT 06/22/2019 3:37 PM CDT Clara Cornell MD LAB - BLOOD ORD ERABLES Performing Organization Address City/[facility]/ZIP Co de Phone Number [address] [address] * TSH with free T4 reflex FUTURE anytime (06/22/2019 3:36 PM CDT) TSH 3.30 0.40 - 4.00 mU/L 06/23/2019 3:12 PM CDT [facility] Blood specimen (specimen) 06/22/2019 3:36 PM CDT 06/22/2019 3:37 PM CDT Clara Cornell MD LAB - BLOOD ORD ERABLES [facility] [address] [place] [address] documented in this encounter Visit Diagnoses Diagnosis Anti-TPO antibodies present- Primary Other and unspecified nonspecific immunological findings Excessive sweating Generalized hyperhidrosis documented in this encounter Additional Health Concerns Assessment Noted Time PHQ-9 Depression Total Score: 0 06/15/20 19 7:09 PM CDT documented as of this encounter Care Teams Go Cart Mechanic Relationship Specialty Start Date End Date Yung Madrigal MD RETIRED PCP - Orthopaedics Orthopedics 08/26/12 01/20/24 Winston Villatoro OD [facility] [place] [address] [place] [address] PCP - Ophthalmology Ophthalmology 02/11/13 Clara Cornell MD [facility] [place] [address] [place] [address] PCP - General Internal Medicine 02/07/17 09/20/20 Denise Woodson Ra, APRN HEAD OF PRECISION TARGETING [address] [place] [address] PCP - General Family Practice 09/21/20 Clara Cornell MD [address] [place] [address] Assigned PCP 01/17/17 07/16/20 Denise Woodson Ra, APRN HEAD OF PRECISION TARGETING [address] [place] [address] Assigned PCP 07/17/20 Usha Simon APRN HEAD OF PRECISION TARGETING [address] [place] [address] [address] Nurse Practitioner Neurological Surgery 01/24/24 Dangelo Salinas MD [address] [place] [address] Neurology 01/27/24 Usha Simon APRN HEAD OF PRECISION TARGETING 9 [facility]121[place], [place] [address] Assigned Neuroscience Provider 02/06/24 Anastasia Stearns, RN Lead Football Coach 02/06/24 Germaine Lopez, CHW Community Health Worker Primary Care - CC 02/18/24 documented as of this encounter
--- OUTSIDE RECORDS SUMMARY | 2024-02-22 15:26 | XMS_ITS | Encounter Summary ---
Author Organization [place] Address [address] [place] [address]. [place] [address] Care Team Providers Care Ship Unloader Name Role Phone Yung Madrigal MD Unavailable Unavailable Winston Villatoro OD Unavailable [phone] Denise Woodson Ra, APRN NAPHTHALENE OPERATOR HELPER Unavailable + [phone] Denise Woodson Ra PROVIDER NETWORK ANALYST NAPHTHALENE OPERATOR HELPER Primary Care Provid er Usha Simon PROVIDER NETWORK ANALYST NAPHTHALENE OPERATOR HELPER Unavailable [phone] Dangelo Salinas MD Unavailable Usha Simon APRN NAPHTHALENE OPERATOR HELPER Unavailable + [phone] Anastasia Stearns RN Unavailable [phone] Germaine Lopez CHW Unavailable [phone] Reason for Visit * Reason Onset Date Comments URI 09/21/2020 Encounter Details Date Type Department Care Team (Late st Contact Info) Description 09/21/2020 [facility] Medical Advice [facility] [address] [place] [address] Denise Woodson Ra, APRN NAPHTHALENE OPERATOR HELPER [address] [place] [address] URI Social History Tobacco Use [...] COVID-19? No / Unsure 09/21/2020 12:04 PM WATER PUMP ASSEMBLER documented as of this encounter Miscellaneous Notes * Telephone Encounter - Kati Yang RN - 09/21/2020 10:54 AM CST [employer] message sent to patient. Kati Yang RN R PUMP ASSEMBLER documented in this encounter Plan of Treatment Upcoming Encounters Date Type Department Care Team (Late st Contact Info) Description 02/26/2024 1:[address] [facility] Imaging [address] [address] [place] [phone] Denise Woodson Ra, PROVIDER NETWORK ANALYST NAPHTHALENE OPERATOR HELPER [address] [place] [address] 02/26/2024 2:15 PM CDT Therapy Visit [facility] 150 [place] [phone] Danya You PA [address] [place] [address] Charis Chacon, [facility] [address] [place] [address] 02/26/2024 3:00 PM CDT Therapy Visit [facility] 150 [place] [address] Danya You PA [address] [place] [address] Isabel Beaulieu, OTR [facility] 150 [place] [address] 02/27/2024 4:45 PM CDT Therapy Visit [facility] [address] [place] [address] Danya You, PA [address] 8496[address] Vanessa Duggan, PT 03/05/2024 1:30 PM CDT Therapy Visit [address] [phone] Danya You, PA [address] [address] Isabel Beaulieu, OTR [facility] 150 [place] [address] 03/05/2024 3:15 PM CDT Therapy Visit [address] [phone] Danya You, PA [address] [address] Charis Chacon SLP [facility] [address] [place] [address] 03/05/2024 4:15 PM CDT Therapy Visit [facility] [address] [place] [address] Danya You, PA [address] [place] [address] Delicia George, PT [facility] [address] [place] [address] 03/11/2024 2:15 PM CDT Therapy Visit [address] [phone] Danya You, PA [facility] [address] [address] Isabel Beaulieu, JAIMIE [address] [address] 03/11/2024 3:00 PM CDT Therapy Visit [address] [phone] Danya You, PA [facility] [address] [address] Cahris Chacon, [facility] [address] [place] [address] 03/11/2024 4:15 PM CDT Therapy Visit [address] [phone] Danya You, PA [facility] [address] [address] Delicia George, PT [facility] [address] [place] [address] 03/17/2024 10:00 AM CDT Office Visit [address] [address] Denise Woodson Ra, PROVIDER NETWORK ANALYST NAPHTHALENE OPERATOR HELPER [address] [place] [address] 03/17/2024 1:30 PM CDT Therapy Visit [address] [phone] Danya You, PA [facility] [address] [address] Isabel Beaulieu, OTR [address] [address] 03/17/2024 2:30 PM CDT Therapy Visit [address] [phone] Danya You, PA [facility] [address] [address] Charis Chacon, [facility] [address] [place] [address] 03/17/2024 4:00 PM CDT Therapy Visit [address] [phone] Danya You, PA [address] [place] [address] Vanessa Duggan, PT 03/23/2024 10:30 AM CDT Office Visit [facility] [address] [place] [phone] Denise Woodson Ra, PROVIDER NETWORK ANALYST NAPHTHALENE OPERATOR HELPER [address] [place] [address] 03/26/2024 1:30 PM CDT Therapy Visit [address] [phone] Danya You, AMAIRANI 2450 [facility] [address] [address] Isabel Beaulieu, OTR [address] [address] 03/26/2024 2:30 PM CDT Therapy Visit [address] [phone] Danya You, AMAIRANI [address] [address] Charis Chacon, [facility] [address] [place] [address] 03/26/2024 3:30 PM CDT Therapy Visit [address] [phone] Danya You, AMAIRANI [facility] [address] [address] Delicia George, PT [facility] [address] [place] [address] 04/02/2024 2:15 PM CDT Therapy Visit [address] [phone] Danya oYu PA [address] [address] Isabel Beaulieu, OTR [facility] 150 [place] [address] 04/02/2024 3:15 PM CDT Therapy Visit [facility] 150 [place] [phone] Danya You, PA [facility] [address] [address] Charis Chacon, [facility] [address] [place] [address] 04/02/2024 4:15 PM CDT Therapy Visit [address] [phone] Danya You, PA 2450 [facility] [address] [place] [address] Delicia George, PT [facility] [address] [place] [address] 04/09/2024 3:15 PM CDT Therapy Visit [address] [phone] Danya You, PA 2450 [facility] [address] [place] [address] Charis Chacon, [facility] [address] [place] [address] 04/09/2024 4:15 PM CDT Therapy Visit [address] [phone] Danya You PA [address] [place] [address] Delicia George, PT [facility] [address] [place] [address] 04/15/2024 9:30 AM CDT Therapy Visit [facility] 150 [place] [phone] Danya You PA [address] [place] [address] Danya Restrepo, SEATER ASSEMBLER 04/23/2024 2:30 PM CDT Therapy Visit [address] [phone] [place] [address] [place] [address] [address] Charis Chacon, SEATER ASSEMBLER [facility] [address] [place] [address] 05/05/2024 2:30 PM CDT Office Visit [facility] [address], [address] [place] [phone] Rohit Barcenas MD [address] [place] [address] 295 [place] [address] 06/23/2024 11:00 AM CDT Virtual Visit [facility] Mental Health & Addiction [facility] [address] [place] [phone] Kristin Vázquez, [facility] 6[address] [place] [address] 06/30/2024 2:00 PM CDT Virtual Visit [facility] Mental Health & Addiction [facility] [address] [facility] [place] [address] Gurpreet Kristin Se, [facility] [address] [facility] PRIMO CORTEZ [address] documented as of this encounter Visit Diagnoses Not on filedocumented in this encounter Additional Health Concerns Assessment Noted Time PHQ-9 Depression Total Score: 0 06/15/20 19 7:09 PM CDT documented as of this encounter Care Teams Ship Unloader Relationship Specialty Start Date End Date Yung Madrigal MD RETIRED PCP - Orthopaedics Orthopedics 08/26/12 01/20/24 Winston Villatoro, OD [facility] [address] [facility] [address] [place] [address] PCP - Ophthalmology Ophthalmology 02/11/13 Denise Woodson Ra, APRN NAPHTHALENE OPERATOR HELPER [address] [place] [address] PCP - General Family Practice 09/21/20 Denise Woodson Ra, APRN NAPHTHALENE OPERATOR HELPER [address] [place] [address] Assigned PCP 07/17/20 Usha Simon APRN NAPHTHALENE OPERATOR HELPER 9 [facility] [address] Nurse Practitioner Neurological Surgery 01/24/24 Dangelo Salinas MD [address] [place], [place] [id number] Neurology 01/27/24 Usha Simon APRN NAPHTHALENE OPERATOR HELPER [address] [place] [address], [place] [address] Assigned Neuroscience Provider 02/06/24 Anastasia Stearns, RN Lead Make Up Editor 02/06/24 Germaine Lopez, W Community Health Worker Primary Care - CC 02/18/24 documented as of this encounter
--- OUTSIDE RECORDS SUMMARY | 2024-02-22 15:26 | XMS_ITS | Encounter Summary ---
Author Organization [facility] Address [address] [place] [address] Care Team Providers Care Senior Finance Manager Name Role Phone Timmy Perez MD Unavailable Unavailable Yung Madrigal MD Unavailable Unavailable Winston Villatoro OD Unavailable [phone] Apple Sykes MD Primary Care Provider [phone] Westley Bates MD Unavailable [phone] Alessandra Cabrales APRN SHIPPING AND RECEIVING OPERATOR Primary Car e Provider Serum, Clara Garland MD Primary Care Provider Serum, Clara Garland MD Unavailable [phone] Serum, Clara Garland MD Unavailable [phone] Denise Woodson Ra, APRN SHIPPING AND RECEIVING OPERATOR Unavailable + [phone] Denise Woodson Ra, APRN SHIPPING AND RECEIVING OPERATOR Primary Care Provid er Usha Simon APRN SHIPPING AND RECEIVING OPERATOR Unavailable + [phone] Dangelo Salinas MD Unavailable Usha Simon APRN SHIPPING AND RECEIVING OPERATOR Unavailable + [phone] Anastasia Stearns RN Unavailable [phone] Germaine Lopez CHW Unavailable [phone] Encounter Details Date Type Department Care Team (Late st Contact Info) Description 05/19/2013 MyC Medical Advice [facility] [address] [place] [address] Yung Madrigal MD RETIRED Social History Tobacco [...] Info) Description 02/26/2024 1:40 PM CDT Appointment [facility] [address] [place] [address] Denise Woodson Ra, MEDICAL REVIEW COORDINATOR SHIPPING AND RECEIVING OPERATOR [address] [facility] [place] [place] [address] 02/26/2024 2:15 PM CDT Therapy Visit [address] [phone] Danya You, PA [address] [place], [place] [address] Charis Chacon SLP [facility] [address] [place] [address] 02/26/2024 3:00 PM CDT Therapy Visit [address] [phone] Danya You, PA [address] [place] [address] Isabel Beaulieu OTR [address] [address] 02/27/2024 4:45 PM CDT Therapy Visit [facility] 150 [place] [address] Danya You, PA [address] [place] [address] Vanessa Duggan, PT 03/05/2024 1:30 PM CDT Therapy Visit [address] [address] Danya You, PA [address] [address] Isabel Beaulieu, OTR [address] [address] 03/05/2024 3:15 PM CDT Therapy Visit [address] [phone] Danya You, PA [address] [address] Charis Chacon, [facility] [address] [place] [address] 03/05/2024 4:15 PM CDT Therapy Visit [address] [phone] Danya You, PA [address] [address] Delicia George, PT [facility] [address] [address] 03/11/2024 2:15 PM CDT Therapy Visit [facility] 150 [place] [address] Danya You PA [address] [address] Isabel Beaulieu, OTR [address] [address] 03/11/2024 3:00 PM CDT Therapy Visit [address] [phone] Danya You, AMAIRANI [address] [address] Charsi Chacon, EDUCATION MANAGERS [facility] [address] [place] [address] 03/11/2024 4:15 PM CDT Therapy Visit [address] [phone] Danya You, PA [address] [place] [address] Delicia George, PT [facility] [address] [address] 03/17/2024 10:00 AM CDT Office Visit [facility] [address] [place] [address] Denise Woodson Ra, MEDICAL REVIEW COORDINATOR [facility] [address] [place], [place] [address] 03/17/2024 1:30 PM CDT Therapy Visit [facility] 150 [place] [address] Danya You PA 2450 [facility] [address] [address] Isabel Beaulieu, OTR [facility] 150 [place] [address] 03/17/2024 2:30 PM CDT Therapy Visit [address] [phone] Danya You, AMAIRANI [facility] JIE [address] [address] Charis Chacon, [facility] [address] [place] [address] 03/17/2024 4:00 PM CDT Therapy Visit [address] [phone] Danya You, AMAIRANI [address] [place], [place] [address]Analy [address] [address] Vanessa Duggan, PT 03/23/2024 10:30 AM CDT Office Visit [facility] [address] [place] [address] Denise Woodson Ra, MEDICAL REVIEW COORDINATOR SHIPPING AND RECEIVING OPERATOR [address] [place], [place] 8[address] 03/26/2024 1:30 PM CDT Therapy Visit [address] [phone] Danya You PA [address] [place] [address] [address] Isabel Beaulieu, OTR [facility] [address] [place] [address] 03/26/2024 2:30 PM CDT Therapy Visit [facility] [address] [place] [address] Danya You, PA [address] [address] Charis Chacon, [facility] [address] [place] [address] 03/26/2024 3:30 PM CDT Therapy Visit [address] [phone] Danya You, PA [address] [address] Delicia George, PT [facility] [address] [place] [address] 04/02/2024 2:15 PM CDT Therapy Visit [facility] 150 [place] [phone] Danya You, PA [address] [address] Isabel Beaulieu, OTR [facility] 150 [place] [address] 04/02/2024 3:15 PM CDT Therapy Visit [address] [place] [address] Danya You PA [address] [address] Charis Chacon, JUAN [facility] [address] [place] [address] 04/02/2024 4:15 PM CDT Therapy Visit [address] [phone] Danya You, PA 2450 [facility] C[facility]ON [address] [address] Delicia George, PT [address] [address] 04/09/2024 3:15 PM CDT Therapy Visit [address] [phone] Danya You, PA [address] [address] Charis Chacon, JUAN [facility] [address] [place] [address] 04/09/2024 4:15 PM CDT Therapy Visit [address] [phone] Danya You, PA [facility] [address] Delicia George, PT [address] [address] 04/15/2024 9:30 AM CDT Therapy Visit [facility] 150 [place] [address] Danya You, PA 2450 [facility] 213 [place] [address] Danya Restrepo, EDUCATION MANAGERS 04/23/2024 2:30 PM CDT Therapy Visit M [address] [phone] Danya You, PA [address] [place], [place] [address]E 213 [place] [address] Charis Chacon, JUAN [facility] [address] [place] [address] 05/05/2024 2:30 PM CDT Office Visit M [facility] Epilepsy [facility] [address], [address] [place] [phone] Rohit Barcenas MD [address] [place] [address] 295 [place] [address] 06/23/2024 11:00 AM CDT Virtual Visit [facility] Mental Health & Addiction [facility] [address] [place] [phone] Kristin Vázquez, [facility] [address] [place] [address] 06/30/2024 2:00 PM CDT Virtual Visit [facility] [address] [place] [phone] Kristin Vázquez, [facility] [address] [facility] PR[place]ARC[place] [address] documented as of this encounter Visit Diagnoses Not on filedocumented in this encounter Care Teams Senior Finance Manager Relationship Specialty Start Date End Date Timmy Perez MD PCP - Obstetrics/Gynecology 03/02/08 08/07/15 Yung Madrigal MD RETIRED PCP - Orthopaedics Orthopedics 08/26/12 01/20/24 Winston Villatoro, OD [facility] [address] [place] [address] PCP - Ophthalmology Ophthalmology 02/11/13 Apple Sykes MD [facility] [address] [place] [address] PCP - General Family Practice 05/04/13 10/25/16 Westley Bates MD XXX RETIRED XXX [address] [place] [address] PCP - ENT Otolaryngology 05/14/13 07/28/18 [facility] APRN SHIPPING AND RECEIVING OPERATOR [address] [facility] [place] [address] PCP - General Nurse Practitioner 10/26/16 02/06/17 Clara Cornell MD [address] [facility] [place] [address] PCP - General Internal Medicine 02/07/17 09/20/20 Clara Cornell MD 8675 [place] [address] PCP - Assigned PCP 01/17/17 11/18/18 Denise Woodson Ra, APRN SHIPPING AND RECEIVING OPERATOR [address] [place] [address] PCP - General Family Practice 09/21/20 Clara Cornell MD 8675 [place] [address] Assigned PCP 01/17/17 07/16/20 Denise Woodson Ra, APRN SHIPPING AND RECEIVING OPERATOR [address] [facility] [place] [address] Assigned PCP 07/17/20 Usha Simon APRN SHIPPING AND RECEIVING OPERATOR [address] [address] Nurse Practitioner Neurological Surgery 01/24/24 [place] [address] [place], [place] [address] [address] [address] Neurology 01/27/24 Usha Simon APRN SHIPPING AND RECEIVING OPERATOR [address] [place] [address] Assigned Neuroscience Provider 02/06/24 Anastasia Stearns, RN Lead Educational Adviser 02/06/24 Germaine Lopez, CHW Community Health Worker Primary Care - CC 02/18/24 documented as of this encounter
--- OUTSIDE RECORDS SUMMARY | 2024-02-22 15:26 | XMS_ITS | Encounter Summary ---
Author Organization [facility] Address [address] [place] [address] Care Team Providers Care Manager Of Case Management Name Role Phone Yung Madrigal MD Unavailable Unavailable Winston Villatoro OD Unavailable [phone] Serum, Clara Garland MD Primary Care Provider Serum, Clara Garland MD Unavailable [phone] Denise Woodson Ra CASH APPLICATIONS MANAGER ANTI TANK MISSILEMAN Unavailable + [phone] Denise Woosdon Ra CASH APPLICATIONS MANAGER ANTI TANK MISSILEMAN Primary Care Provid er Usha Simon APRN ANTI TANK MISSILEMAN Unavailable [phone] Dangelo Salinas MD Unavailable Usha Simon CASH APPLICATIONS MANAGER ANTI TANK MISSILEMAN Unavailable [phone] Anastasia Stearns RN Unavailable [phone] Germaine Lopez [facility] Unavailable [phone] Encounter Details Date Type Department Care Team (Late st Contact Info) Description 06/16/2019 [facility] [address] [facility] [address] [place] [address] Serum, Clara Garland MD [address] [place] [address] Social History Tobacco Use Types [...] Info) Description 02/26/2024 1:40 PM CDT Appointment [facility] Specialty [facility] [place] [facility] [address] [place] [phone] Denise Woodson Ra, CASH APPLICATIONS MANAGER ANTI TANK MISSILEMAN [address] [facility] [place] [address] 02/26/2024 2:15 PM CDT Therapy Visit [address] [phone] Danya You, AMAIRANI SOTO [address] [place] [address]11[address] Charis Chacon, ROUND CUTTER OPERATOR [facility] [address] [place] [address] 02/26/2024 3:00 PM CDT Therapy Visit [address] [phone] Danya You, [place] 245Darren SOTO [address] [place] [address] Isabel Beaulieu, [facility] [address] [place] [address] 02/27/2024 4:45 PM CDT Therapy Visit [facility] 150 [place] [address] Danya You PA [address] MB [address] [place] [address] Vanessa Duggan, PT 03/05/2024 1:30 PM CDT Therapy Visit [address] [phone] Danya You, PA [address] [place] [address] Isabel Beaulieu, OTR [address] [address] 03/05/2024 3:15 PM CDT Therapy Visit [address] [phone] Danya You, PA [address] [place] [address] Charis Chacon, ROUND CUTTER OPERATOR [facility] [address] [place] [address] 03/05/2024 4:15 PM CDT Therapy Visit [address] [phone] Danya You, PA 2450 [facility] C[facility]ON [address] [address] Delicia George, PT [facility] [address] [place] [address] 03/11/2024 2:15 PM CDT Therapy Visit [address] [phone] Danya You, PA [address] [address] Isabel Beaulieu, OTR [address] [address] 03/11/2024 3:00 PM CDT Therapy Visit [address] [phone] Danya You, PA [address] [place] [address] Charis Chacon, JUAN [facility] [address] [place] [address] 03/11/2024 4:15 PM CDT Therapy Visit [address] [phone] Danya You, PA [address] 258924 Delicia George, PT [facility] [address] [place] [address] 03/17/2024 10:00 AM CDT Office [facility] [address] [place] [phone] Denise Woodson Ra, CASH APPLICATIONS MANAGER [facility] [address] [place], [place] [address] 03/17/2024 1:30 PM CDT Therapy Visit [address] [phone] Danya You, PA [address] [address] Isabel Beaulieu, OTR [address] [address] 03/17/2024 2:30 PM CDT Therapy Visit [facility] [address] [place] [address] Danya You, PA 2450 [facility] [address] [place] [address] Charis Chacon, [facility] [address] [place] [address] 03/17/2024 4:00 PM CDT Therapy Visit [address] [phone] Danya You, PA [address] 593364 Vanessa Duggan, PT 03/23/2024 10:30 AM CDT Office Visit [facility] [address] [place] [phone] Denise Woodson Ra, CASH APPLICATIONS MANAGER [facility] [address] [place] [address] 03/26/2024 1:30 PM CDT Therapy Visit [facility] [address] [place] [phone] Danya You, PA 2650 [facility] [address] [place], [place] 3029[address] Isabel Beaulieu OTR [address] [address] 03/26/2024 2:30 PM CDT Therapy Visit [facility] [address] [place] [address] Danya You, PA [address] [place] [address] Charis Chacon, JUAN [facility] [address] [place] [address] 03/26/2024 3:30 PM CDT Therapy Visit [address] [phone] Danya You, PA [address] 455[address] Delicia George, PT [facility] [address] [place] [address] 04/02/2024 2:15 PM CDT Therapy Visit [address] [phone] Danya You, PA [address] [address] Isabel Beaulieu, JAIMIE [address] [address] 04/02/2024 3:15 PM CDT Therapy Visit [address] [phone] Danya You, PA [address] [place] [address] Charis Chacon, JUAN [facility] [address] [place] [address] 04/02/2024 4:15 PM CDT Therapy Visit [address] [phone] Danya You PA [address] MB [address] [place] [address] Delicia George, PT [address] [address]38[address] 04/09/2024 3:15 PM CDT Therapy Visit [address] [address] Danya You PA [address] MB [address] [place] [address] Charis Chacon, JUAN [facility] [address] [place] [address] 04/09/2024 4:15 PM CDT Therapy Visit [address] [address] Danya You PA [address] [address] Delicia George, PT [address] [address] 04/15/2024 9:30 AM CDT Therapy Visit [address] [place] [address] Danya You, PA [address] [place] [address] Danya Restrepo ROUND CUTTER OPERATOR 04/23/2024 2:30 PM CDT Therapy Visit M [facility] Rehabilitation Services [facility] [address] [place] [address] Danya You, PA [address] [place] [address] Charis Chacon, [facility] [address] [place] [address] 05/05/2024 2:30 PM CDT Office Visit M [facility] Epilepsy [facility] [address], [address] [place] [address] Rohit Barcenas MD 420 [facility] [address] [place], [place] [address] 06/23/2024 11:00 AM CDT Virtual Visit [facility] Mental Health & Addiction [address] [address] Kristin Vázquez, [facility] [address] [place] [address] 06/30/2024 2:00 PM CDT Virtual Visit [facility] Mental [facility] & Addiction [place] [address] [place] [address] Kristin Vázquez, [facility] [address] [place] [address] documented as of this encounter Visit Diagnoses Not on filedocumented in this encounter Additional Health Concerns Assessment Noted Time PHQ-9 Depression Total Score: 0 06/15/20 19 7:09 PM CDT documented as of this encounter Care Teams Manager Of Case Management Relationship Specialty Start Date End Date Yung Madrigal MD RETIRED PCP - Orthopaedics Orthopedics 08/26/12 01/20/24 Winston Villatoro, OD [facility] [place] [address] [place] [address] PCP - Ophthalmology Ophthalmology 02/11/13 Clara Cornell MD [facility] [place] [address] [place] [address] PCP - General Internal Medicine 02/07/17 09/20/20 Denise Woodson Ra, APRN ANTI TANK MISSILEMAN [address] [facility] [place] [address] PCP - General Family Practice 09/21/20 Clara Cornell MD [address]75 [place] [address] Assigned PCP 01/17/17 07/16/20 Denise Woodson Ra, APRN ANTI TANK MISSILEMAN [address] [facility] [place] [address] Assigned PCP 07/17/20 Usha Simon APRN ANTI TANK MISSILEMAN [address]09 [facility]121[place], [place] [address] Nurse Practitioner Neurological Surgery 01/24/24 Dangelo Salinas MD [address] [address] Neurology 01/27/24 Usha Simon APRN ANTI TANK MISSILEMAN [address] [place], [place] [address], [place] [address] Assigned Neuroscience Provider 02/06/24 Anastasia Stearns, RN Lead Fur Cutting Machine Operator 02/06/24 Germaine Lopez, CHW Community Health Worker Primary Care - CC 02/18/24 documented as of this encounter
--- OUTSIDE RECORDS SUMMARY | 2024-02-22 15:26 | XMS_ITS | Encounter Summary ---
Author Organization [facility] Address [address] [place] [address] Care Team Providers Care Machine Sander Name Role Phone Yung Madrigal MD Unavailable Unavailable Winston Villatoro OD Unavailable [phone] Serum, Clara Garland MD Primary Care Provider Serum, Clara Garland MD Unavailable [phone] Denise Woodson Ra TERRA COTTA SETTER SERVICE ADVOCATE CONTACT Unavailable [phone] Denise Woodson Ra TERRA COTTA SETTER SERVICE ADVOCATE CONTACT Primary Care Provid er Usha Simon APRN SERVICE ADVOCATE CONTACT Unavailable [phone] Dangelo Salinas MD Unavailable Usha Simon TERRA COTTA SETTER SERVICE ADVOCATE CONTACT Unavailable [phone] Anastasia Stearns RN Unavailable [phone] Germaine Lopez CHW Unavailable [phone] Encounter Details Date Type Department Care Team (Late st Contact Info) Description 01/21/2019 [facility] [address] [place] [address] Phoebe Del Cid Social History Tobacco Use Types Packs/Day Years [...] Info) Description 02/26/2024 1:40 PM CDT Appointment [facility] Imaging [address] [place] [phone] Denise Woodson Ra, TERRA COTTA SETTER SERVICE ADVOCATE CONTACT [address] [place] [address] 02/26/2024 2:15 PM CDT Therapy Visit [address] [phone] Danya You, AMAIRANI [address] [place] [address] Charis Chacon, JUAN [facility] [address] [place] [address] 02/26/2024 3:00 PM CDT Therapy Visit [address] [phone] Danya You, PA [address] 677524 Isabel Beaulieu, JAIMIE [facility] [address] [place] [address] 02/27/2024 4:45 PM CDT Therapy Visit [address] [phone] Danya You, PA [address] [place] [address] Vanessa Duggan, PT 03/05/2024 1:30 PM CDT Therapy Visit [address] [phone] Danya You PA [facility] [address] [address] Isabel Beaulieu, OTR [address] [address] 03/05/2024 3:15 PM CDT Therapy Visit [address] [phone] Danya You, AMAIRANI [facility] [address] [address] Charis Chacon SLP [facility] [address] [place] [address] 03/05/2024 4:15 PM CDT Therapy Visit [address] [phone] Danya You, AMAIRANI [address] [place] [address] Delicia George, PT [facility] [address] [place] [address] 03/11/2024 2:15 PM CDT Therapy Visit [address] [phone] Danya You PA [address] [place] [address] Isabel Beaulieu, OTR [facility] [address] [address] 03/11/2024 3:00 PM CDT Therapy Visit [address] [phone] Danya You, PA [address] [address] Charis Chacon, JUAN [facility] [address] [place] [address] 03/11/2024 4:15 PM CDT Therapy Visit [address] [phone] Danya You, AMAIRANI [address] 788574 Delicia George, PT [facility] [address] [place] [address] 494525 03/17/2024 10:00 AM CDT Office Visit [facility] [address] [place] [address] Denise Woodson Ra, TERRA COTTA SETTER [facility] [address] [place] [address] 03/17/2024 1:30 PM CDT Therapy Visit [address] [phone] Danya You, PA [address] 272364 Isabel Beaulieu, [facility]TR [facility] [address] [place] [address] 03/17/2024 2:30 PM CDT Therapy Visit [facility] 150 [place] [phone] Danya You, PA [address] [place] [address] Charis Chacon, JUAN [facility] [address] [place] [address] 03/17/2024 4:00 PM CDT Therapy Visit [address] [phone] Danya You, PA 4210 [facility] [address] [address] Vanessa Duggan, PT 03/23/2024 10:30 AM CDT Office Visit [facility] [address] [place] [address] Denise Woodson Ra, TERRA COTTA SETTER SERVICE ADVOCATE CONTACT [address] [place], [place] 30522[address] 03/26/2024 1:30 PM CDT Therapy Visit [facility] 150 [place] [address] Danya You, PA 2450 [facility] [address] [place] [address] 780054 Isabel Beaulieu, OTR [facility] [address] [place] [address] 03/26/2024 2:30 PM CDT Therapy Visit [facility] 150 [place] [address] Danya You PA [address] [address] Charis Chacon, JUAN [facility] [address] [place] [address] 03/26/2024 3:30 PM CDT Therapy Visit [address] [phone] Danya You, PA [address] [address] Delicia George, PT [facility] [address] [place] [address] 04/02/2024 2:15 PM CDT Therapy Visit [address] [phone] Danya You, PA [address] [address] Isabel Beaulieu, OTJah [address] [address] 04/02/2024 3:15 PM CDT Therapy Visit [address] [phone] Danya You PA [address] [address] Charis Chacon, JUAN [facility] [address] [place] [address] 04/02/2024 4:15 PM CDT Therapy Visit [address] [address] Danya You, AMAIRANI [address] [address] Delicia George, PT [address] [address] 04/09/2024 3:15 PM CDT Therapy Visit [address] [address] Danya You, PA [address] [address] Charis Chacon, OCCUP THERAPIST [facility] [address] [place] [address] 04/09/2024 4:15 PM CDT Therapy Visit [address] [address] Danya You, PA 2450 [facility] [address] [address] Delicia George, PT [address] [address] 04/15/2024 9:30 AM CDT Therapy Visit [address] [address] Danya You, PA [address] [place] [address] Danya Restrepo, OCCUP THERAPIST 04/23/2024 2:30 PM CDT Therapy Visit [facility] [address] [place] [address] Danya You PA [address] [place] [address] Charis Chacon, JUAN [facility] [address] [place] [address] 05/05/2024 2:30 PM CDT Office Visit [facility] [address], [address] [place] [address] Rohit Barcenas MD [address] [place] [address] 295 [place] [address] 06/23/2024 11:00 AM CDT Virtual Visit [facility] [address] [place] [address] Kristin Vázquez, [facility] 9[address] [place] [address] 06/30/2024 2:00 PM CDT Virtual Visit [facility] [address] [place] [address] Kristin Vázquez, [facility] 17[address] [place] [address] documented as of this encounter Visit Diagnoses Not on filedocumented in this encounter Additional Health Concerns Assessment Noted Time PHQ-9 Depression Total Score: 0 02/09/20 17 7:29 AM CDT documented as of this encounter Care Teams Machine Sander Relationship Specialty Start Date End Date Yung Madrigal MD RETIRED PCP - Orthopaedics Orthopedics 08/26/12 01/20/24 Winston Villatoro OD [facility] [place] [address] [place] [address] PCP - Ophthalmology Ophthalmology 02/11/13 Clara Cornell MD [facility] [place] [address] [place] [address] PCP - General Internal Medicine 02/07/17 09/20/20 Denise Woodson Ra, APRN SERVICE ADVOCATE CONTACT [address] [facility] [address] PCP - General Family Practice 09/21/20 Clara Cornell MD 8675 [place] [address] Assigned PCP 01/17/17 07/16/20 Denise Woodson Ra, APRN SERVICE ADVOCATE CONTACT [address] [place] [address] Assigned PCP 07/17/20 Usha Simon APRN SERVICE ADVOCATE CONTACT 909 [facility] [id number] [place] [address] Nurse Practitioner Neurological Surgery 01/24/24 Dangelo Salinas MD [address] [place] [address] Neurology 01/27/24 Usha Simon APRN SERVICE ADVOCATE CONTACT 909 [facility] [id number] [place] [address] Assigned Neuroscience Provider 02/06/24 Anastasia Stearns, RN Lead Leadership Development Instructor 02/06/24 Germaine Lopez, W Community Health Worker Primary Care - CC 02/18/24 documented as of this encounter
--- OUTSIDE RECORDS SUMMARY | 2024-02-22 15:26 | XMS_ITS | Encounter Summary ---
Author Organization [facility] Address [address] [place] [address] Care Team Providers Care Real Estate Coordinator Name Role Phone Yung Madrigal MD Unavailable Unavailable Winston Villatoro OD Unavailable [phone] Denise Woodson Ra, APRN FUNERAL PRE ARRANGEMENT SPECIALIST Unavailable + [phone] Denise Woodson Ra HVAC SPECIALIST FUNERAL PRE ARRANGEMENT SPECIALIST Primary Care Provid er Usha Simon APRN FUNERAL PRE ARRANGEMENT SPECIALIST Unavailable + [phone] Dangelo Salinas MD Unavailable Usha Simon APRN FUNERAL PRE ARRANGEMENT SPECIALIST Unavailable + [phone] Anastasia Stearns RN Unavailable [phone] Germaine Lopez CHW Unavailable [phone] Encounter Details Date Type Department Care Team (Late st Contact Info) Description 12/30/2020 [facility] [facility] [place] [address] [phone] Jessica Phipps, INSTRUMENT SETTER Social History Tobacco Use Types Packs/Day Years [...] 02/26/2024 1:40 PM CDT Appointment [facility] Imaging [address] [place] [phone] Denise Woodson Ra, HVAC SPECIALIST FUNERAL PRE ARRANGEMENT SPECIALIST [address] [facility] [place] [address] 02/26/2024 2:15 PM CDT Therapy Visit [address] [phone] Danya You, AMAIRANI SOTO [address] [place] [address] 576714 Charis Chacon, JUAN [facility] [address] [place] [address] 02/26/2024 3:00 PM CDT Therapy Visit [address] [phone] Danya You, PA [address] [place] [address] 721274 Isabel Beaulieu OTR [address] [address] 02/27/2024 4:45 PM CDT Therapy Visit [address] [phone] Danya You, PA Yohana0 [address] [place] [address] 083684 Vanessa Duggan, PT 03/05/2024 1:30 PM CDT Therapy Visit [address] [phone] Danya You, PA [address] [place] [address] 745874 Isabel Beaulieu, OTR [address] [address] 03/05/2024 3:15 PM CDT Therapy Visit [address] [phone] Danya You, PA 7000 [facility] S[facility] [address] [place] [address] 787134 Charis Chacon, MARKETING AND PROMOTIONS MANAGER [facility] [address] [place] [address] 03/05/2024 4:15 PM CDT Therapy Visit [address] [phone] Danya You, PA [address] [place] [address] 542274 Delicia George, PT [facility] [address] [place] [address] 03/11/2024 2:15 PM CDT Therapy Visit [address] [phone] Danya You, PA [address] [place] [address] 731554 Isabel Beaulieu, OTR [address] [address] 03/11/2024 3:00 PM CDT Therapy Visit [address] [phone] Danya You, AMAIRANI 2450 [facility] [address] [address] Charis Chacon, [facility] [address] [place] [address] 03/11/2024 4:15 PM CDT Therapy Visit [address] [phone] Danya You, PA [facility] [address] [address] Delicia George, PT [facility] [address] [place] [address] 03/17/2024 10:00 AM CDT Office Visit [facility] [address] [place] [address] Denise Woodson Ra, HVAC SPECIALIST FUNERAL PRE ARRANGEMENT SPECIALIST [address] [place], [place] 09[address] 03/17/2024 1:30 PM CDT Therapy Visit [address] [phone] Danya You, AMAIRANI [facility] [address] [address] Isabel Beaulieu, OTR [facility] [address] [place] [address] 03/17/2024 2:30 PM CDT [facility] 150 [place] [address] Danya You PA 2450 [facility] 213 [place] [address] Charis Chacon, MARKETING AND PROMOTIONS MANAGER [facility] N[facility] [address] [place], [place] [address] 03/17/2024 4:00 PM CDT Therapy Visit [address] [phone] Danya You, AMAIRANI [address] 108564 Vanessa Duggan, PT 03/23/2024 10:30 AM CDT Office Visit [facility] [address] [place] [address] Denise Woodson Ra, HVAC SPECIALIST FUNERAL PRE ARRANGEMENT SPECIALIST [address] [place], [place] 2323368 03/26/2024 1:30 PM CDT Therapy Visit [facility] 150 [place] [phone] Danya You, AMAIRANI 2450 [facility] [address] [place] [address] Isabel Beaulieu, OTR [facility] 150 [place] [address] 03/26/2024 2:30 PM CDT Therapy Visit [address] [phone] Danya You, PA 2450 [facility] JIE [address] [address] Charis Chacon, JUAN [facility] [address] [place] [address] 03/26/2024 3:30 PM CDT Therapy Visit [address] [phone] Danya You, PA [address] [place] [address] [address] Delicia George, PT [facility] [address] [place] [address] 04/02/2024 2:15 PM CDT Therapy Visit [address] [phone] Danya You, PA [address] [place] [address] [address] Isabel Beaulieu OTR [address] [address] 04/02/2024 3:15 PM CDT Therapy Visit [address] [phone] Danya You PA [address] [address] Charis Chacon, JUAN [facility] [address] [place] [address] 04/02/2024 4:15 PM CDT Therapy Visit [address] [address] Danya You, PA [address] [address] Delicia George, PT [address] [address] 04/09/2024 3:15 PM CDT Therapy Visit [address] [phone] Danya You, PA [address] [address] Charis Chacon, JUAN [facility] [address] [place] [address] 04/09/2024 4:15 PM CDT Therapy Visit [address] [address]-480[address] Danya You, PA [facility] [address] [address] Delicia George, PT [address] [address] 04/15/2024 9:30 AM CDT Therapy Visit [address] [phone] Danya You PA [address] [place] [address] [place] [address] Danya Restrepo MARKETING AND PROMOTIONS MANAGER 04/23/2024 2:30 PM CDT Therapy Visit [facility] 150 [place] [address] Danya You, AMAIRANI [address] [place] [address] [place] [address] Charis Chacon, JUAN [facility] [address] [place] [address] 05/05/2024 2:30 PM CDT Office Visit [facility] Epilepsy [facility] [address], [address] [place] [phone] Rohit Barcenas MD 420 [facility] 295 [place] [address] 06/23/2024 11:00 AM CDT Virtual Visit [facility] [address] [place] [address] Kristin Vázquez, [facility] [address] [place] [address] 06/30/2024 2:00 PM CDT Virtual Visit [facility] [address]01 [place] [address] Kristin Vázquez, [facility] [address] [place] [address] documented as of this encounter Visit Diagnoses Not on filedocumented in this encounter Additional Health Concerns Assessment Noted Time PHQ-9 Depression Total Score: 0 06/15/20 19 7:09 PM CDT documented as of this encounter Care Teams Real Estate Coordinator Relationship Specialty Start Date End Date Yung Madrigal MD RETIRED PCP - Orthopaedics Orthopedics 08/26/12 01/20/24 Winston Villatoro, OD [facility] [place] [address] [facility] [address] [place] [address] PCP - Ophthalmology Ophthalmology 02/11/13 Denise Woodson Ra, APRN FUNERAL PRE ARRANGEMENT SPECIALIST [address] [place] [address] PCP - General Family Practice 09/21/20 Denise Woodson Ra, APRN FUNERAL PRE ARRANGEMENT SPECIALIST [address] [place] [address] Assigned PCP 07/17/20 Usha Simon APRN FUNERAL PRE ARRANGEMENT SPECIALIST [address] 825335 Nurse Practitioner Neurological Surgery 01/24/24 Dangelo Salinas MD [address] [facility] [address] [id number] Neurology 01/27/24 Usha Simon APRN FUNERAL PRE ARRANGEMENT SPECIALIST [address] [phone] Assigned Neuroscience Provider 02/06/24 Anastasia Stearns, RN Lead Manager Field Service 02/06/24 Germaine Lopez, W Community Health Worker Primary Care - CC 02/18/24 documented as of this encounter
--- OUTSIDE RECORDS SUMMARY | 2024-02-22 15:26 | XMS_ITS | Encounter Summary ---
Author Organization [facility] Address [address] [place] [address]. [place] [address] Care Team Providers Care Advanced Practice Nurse Psychotherapist Name Role Phone Yung Madrigal MD Unavailable Unavailable Winston Villatoro OD Unavailable [phone] Denise Woodson Ra, APRN DATABASE MARKETING ANALYST Unavailable + [phone] Denise Woodson Ra, APRN DATABASE MARKETING ANALYST Primary Care Provid er Usha Simon APRN DATABASE MARKETING ANALYST Unavailable +- [phone] Dangelo Salinas MD Unavailable Usha Simon APRN DATABASE MARKETING ANALYST Unavailable + [phone] Anastasia Stearns RN Unavailable +[phone] Germaine Lopez CHW Unavailable [phone] Reason for Visit * Reason Onset Date Comments Medication Request 04/20/2021 escitalopram (LEXAPRO) 10 MG tablet Encounter Details Date Type Department Care Team (Late st Contact Info) Description 04/20/2021 [facility] [address] [place] [address] Denise Woodson Ra, APRN DATABASE MARKETING ANALYST [address] [place] [address] Medication Request (escitalopram (LEXAPRO)... Social [...] Info) Description 02/26/2024 1:40 PM CDT Appointment [facility] [address] [place] [address] Denise Woodson Ra, GEOPHYSICAL DRAFTER DATABASE MARKETING ANALYST [address] [place] [address] 02/26/2024 2:15 PM CDT Therapy Visit [address] [phone] Danya You, PA [address] [place], [place] [address] Charis Chacon, [facility] [address] [place] [address] 02/26/2024 3:00 PM CDT Therapy Visit [address] [phone] Danya You, PA 2450 [facility] [address] [place], [place] [address] Isabel Beaulieu, OTJah [address] [address] 02/27/2024 4:45 PM CDT Therapy Visit [address] [address] Danya You, PA [address] [place] [address] Vanessa Duggan, PT 03/05/2024 1:30 PM CDT Therapy Visit [address] [phone] Danya You, PA [address] [address] Isabel Beaulieu OTJah [address] [address] 03/05/2024 3:15 PM CDT Therapy Visit [address] [phone] Danya You, PA [address] [address] Charis Chacon, [facility] [address] [place] [address] 03/05/2024 4:15 PM CDT Therapy Visit [address] [address] Danya You, PA [address] [address] Delicia George, PT [facility] [address] [address] 03/11/2024 2:15 PM CDT Therapy Visit [address] [phone] Danya You, AMAIRANI [facility]50 [facility] SOTO [address] [place] [address] Isabel Beaulieu, OTR [facility] [address] [place] [address] 03/11/2024 3:00 PM CDT Therapy Visit [address] [phone] Danya You, AMAIRANI [address] [address] Charis Chacon [facility] [address] [place] [address] 03/11/2024 4:15 PM CDT Therapy Visit [address] [phone] Danya You, PA [address] [address] Delicia George, PT [facility] [address] [place] [address] 03/17/2024 10:00 AM CDT Office Visit [facility] [address] [place] [address] Denise Woodson Ra, GEOPHYSICAL DRAFTER [facility] [address] [place], [place] [address] 03/17/2024 1:30 PM CDT Therapy Visit [address] [phone] Danya You PA [address] [address] Isabel Beaulieu, OTR [address] [address] 03/17/2024 2:30 PM CDT Therapy Visit [address] [address] Danya You, AMAIRANI [address] 542414 Charis Chacon, [facility] [address] [place] [address] 03/17/2024 4:00 PM CDT Therapy Visit [address] [phone] Danya You, PA [address] [place] [address] Vanessa Duggan, PT 03/23/2024 10:30 AM CDT Office Visit [facility] [address] [place] [phone] Denise Woodson Ra, GEOPHYSICAL DRAFTER DATABASE MARKETING ANALYST [address] [place] [address] 03/26/2024 1:30 PM CDT Therapy Visit [address] [address] Danya You PA [address] [address] Isabel Beaulieu, OTR [facility] [address] [place] [address] 03/26/2024 2:30 PM CDT Therapy Visit [facility] [address] [place] [phone] Danya You, AMAIRANI [address] [address] Charis Chacon, [facility] [address] [place] [address] 03/26/2024 3:30 PM CDT Therapy Visit [address] [phone] Danya You, PA [address] [address] Delicia George, PT [facility] [address] [place] [address] 04/02/2024 2:15 PM CDT Therapy Visit [facility] [address] [place] [phone] Danya You, PA [address] [place] [address] Isabel Beaulieu, OTR [facility] [address] [place] [address] 04/02/2024 3:15 PM CDT Therapy Visit [facility] [address] [place] [phone] Danya You PA [address] [place] [address] Charis Chacon SLP [facility] [address] [place] [address] 04/02/2024 4:15 PM CDT Therapy Visit [address] [phone] Danya You PA 2450 [facility] [address] [address] Delicia George, PT [address] [address] 04/09/2024 3:15 PM CDT Therapy Visit [address] [address] Danya You, AMAIRANI 2450 [facility] [address] [address] Charis Chacon, [facility] [address] [place] [address] 04/09/2024 4:15 PM CDT Therapy Visit [address] [phone] Danya You PA 2450 [facility] [address] [address] Delicia George, PT [address] [address] 04/15/2024 9:30 AM CDT Therapy Visit [facility] [address] [place] [address] Danya You, PA [address] [place] [address] Danya Restrepo RESEARCH DEVELOPMENT MANAGER 04/23/2024 2:30 PM CDT Therapy Visit [facility] [address] [place] [address] Danya You, PA [address] [place] [address] [address] [place] [address] Charis Chacon, [facility] [address] [place] [address] 05/05/2024 2:30 PM CDT Office Visit [facility] Ep[facility] Care [address], [address] [place] [phone] Rohit Barcenas MD [address] [place] [address] [address] [place] [address] 06/23/2024 11:00 AM CDT Virtual Visit [facility] [address] [place] [address] Kristin Vázquez, [facility] [address] [place] [address] 06/30/2024 2:00 PM CDT Virtual Visit [facility] Mental [facility] [address]01 [place] [phone] Kristin Vázquez, [facility] [address] [place] [address] documented as of this encounter Visit Diagnoses Diagnosis Generalized anxiety disorder Mild recurrent major depression (H24) Major depressive disorder, recurrent episode, mild documented in this encounter Additional Health Concerns Assessment Noted Time PHQ-9 Depression Total Score: 0 01/05/20 21 9:31 AM CDT documented as of this encounter Care Teams Advanced Practice Nurse Psychotherapist Relationship Specialty Start Date End Date Yung Madrigal MD RETIRED PCP - Orthopaedics Orthopedics 08/26/12 01/20/24 Winston Villatoro OD [facility] [place] [address] [facility] [address] [place] [address] PCP - Ophthalmology Ophthalmology 02/11/13 Denise Woodson Ra, APRN DATABASE MARKETING ANALYST [address] [place] [address] PCP - General Family Practice 09/21/20 Denise Woodson Ra, APRN DATABASE MARKETING ANALYST [address] [place] [address] Assigned PCP 07/17/20 Usha Simon APRN DATABASE MARKETING ANALYST [address] [place] [address]315 Nurse Practitioner Neurological Surgery 01/24/24 Dangelo Salinas MD [address] [id number] Neurology 01/27/24 Usha Simon APRN DATABASE MARKETING ANALYST [address] [address]49[address] Assigned Neuroscience Provider 02/06/24 Anastasia Stearns, RN Lead Insurance Account Executive 02/06/24 Germaine Lopez, W Community Health Worker Primary Care - CC 02/18/24 documented as of this encounter
--- OUTSIDE RECORDS SUMMARY | 2024-02-22 15:26 | XMS_ITS | Encounter Summary ---
Author Organization [facility] Address [address] [place] [address]. [place] [address] Care Team Providers Care Syrup Mixer Assistant Name Role Phone Yung Madrigal MD Unavailable Unavailable Winston Villatoro OD Unavailable [phone] Denise Woodson Ra, APRN PLATFORM MAN Unavailable + [phone] Denise Woodson Ra CRUST SORTER PLATFORM MAN Primary Care Provid er Usha Simon CRUST SORTER PLATFORM MAN Unavailable +- [phone] Dangelo Salinas MD Unavailable Usha Simon APRN PLATFORM MAN Unavailable + [phone] Anastasia Stearns RN Unavailable [phone] Germaine Lopez CHW Unavailable [phone] Reason for Visit * Reason Onset Date Comments MyChart Communication 06/08/2021 Abdominal pain Encounter Details Date Type Department Care Team (Late st Contact Info) Description 06/08/2021 MyC Medical Advice [facility] [address] [place] [address] Denise Woodson Ra, APRN PLATFORM MAN [address] [place] [address] MyChart Communication (Abdominal pain) Social [...] [facility] Imaging [address] [place] [phone] Denise Woodson Ra, CRUST SORTER PLATFORM MAN [address] [place] [address] 02/26/2024 2:15 PM CDT Therapy Visit [address] [phone] Danya You, AMAIRANI SOTO [address] [place] [address] Charis Chacon, JUAN [facility] [address] [place] [address] 02/26/2024 3:00 PM CDT Therapy Visit [address] [phone] Danya You, AMAIRANI SOTO [address] [place] [address] Isabel Beaulieu OTR [facility] 150 [place] [address] 02/27/2024 4:45 PM CDT Therapy Visit [facility] [address] [place] [phone] Danya You PA [address] MB [address] [place] [address] Vanessa Duggan, PT 03/05/2024 1:30 PM CDT Therapy Visit [address] [phone] Danya You, PA [address] [place] [address] Isabel Beaulieu, OTR [address] [address] 03/05/2024 3:15 PM CDT Therapy Visit [address] [address] Danya You, PA [address] [place] [address] Charis Chacon, AERONAUTICS TEACHER [facility] [address] [place] [address] 03/05/2024 4:15 PM CDT Therapy Visit [address] [address] Danya You, PA [address] [address] Delicia George, PT [facility] [place] [address] [place] [address] 03/11/2024 2:15 PM CDT Therapy Visit [address] [phone] Danya You, PA [address] [address] Isable Beaulieu, OTJah [address] [address] 03/11/2024 3:00 PM CDT Therapy Visit [address] [phone] Danya You, PA [address] [address] Charis Chacon, JUAN [facility] [address] [place] [address] 03/11/2024 4:15 PM CDT Therapy Visit [address] [phone] Danya You, PA 8770 [facility] [address] [address] Delicia George, PT [facility] [address] [place] [address] 03/17/2024 10:00 AM CDT Office Visit [facility] [phone] [place] [address] Denise Woodson Ra, CRUST SORTER [facility] [address] [place] [address] 03/17/2024 1:30 PM CDT Therapy Visit [address] [phone] Danya You, PA [address] [address] Isabel Beaulieu, OTR [facility]V [address] [address] 03/17/2024 2:30 PM CDT Therapy Visit [address] [phone] Danya You, PA 2450 [facility] [address] [place] [address] Charis Chacon, AERONAUTICS TEACHER [facility] [address] [place] [address] 03/17/2024 4:00 PM CDT Therapy Visit [address] [phone] Danya You, PA [address] [address]47[address] Vanessa Duggan, PT 03/23/2024 10:30 AM CDT Office Visit [facility] [address] [place] [phone] Denise Woodson Ra, CRUST SORTER [facility] [address] [place] [address] 03/26/2024 1:30 PM CDT Therapy Visit [address] [phone] Danya You, PA 2450 [facility] [address] [address] Isabel Beaulieu, OTR [address] [place] [address] 03/26/2024 2:30 PM CDT Therapy [facility] [address] [place] [address] Danya You PA [address] [place] [address] Charis Chacon, JUAN [facility] [address] [place] [address] 03/26/2024 3:30 PM CDT Therapy Visit [address] [address] Danya You, PA [address] [place] [address] Delicia George, PT [facility] [address] [place] [address] 04/02/2024 2:15 PM CDT Therapy [facility] [address] [place] [address] Danya You, PA [address] [place] [address] Isabel Beaulieu, [facility] [address] [place] [address] 04/02/2024 3:15 PM CDT Therapy [facility] [address] [place] [address] Danya You PA [address] [place] [address] Charis Chacon, JUAN [facility] [address] [place] [address] 04/02/2024 4:15 PM CDT Therapy Visit [address] [address] Danya You PA [address] [address] Delicia George, PT [address] 83[address] 04/09/2024 3:15 PM CDT Therapy Visit [address] [address] Danya You PA [address] [address] Charis Chacon, JUAN [facility] [address] [place] [address] 04/09/2024 4:15 PM CDT Therapy Visit [address] [address] Danya You PA [address] [address] Delicia George, PT [address] [address] 04/15/2024 9:30 AM CDT Therapy Visit [address] [place] [address] Danya You, PA [address] [place] [address] Danya Restrepo SLP 04/23/2024 2:30 PM CDT Therapy Visit [facility] [address] [place] [address] Danya You, PA [address] [place] [address] Charis Chacon, [facility] [address] [place] [address] 05/05/2024 2:30 PM CDT Office Visit [facility] Epilepsy [facility] [address], [address] [place] [address] Rohit Barcenas MD [address] [facility] 295 [place], [place] [address] 06/23/2024 11:00 AM CDT Virtual Visit [facility] [address]01 [place] [address] Kristin Vázquez, [facility] 9741 [place] [address] 06/30/2024 2:00 PM CDT Virtual Visit [facility] [address] [place] [address] Kristin Vázquez, [facility] 0141 [place] [address] documented as of this encounter Visit Diagnoses Not on filedocumented in this encounter Additional Health Concerns Assessment Noted Time PHQ-9 Depression Total Score: 0 01/05/20 21 9:31 AM CDT documented as of this encounter Care Teams Syrup Mixer Assistant Relationship Specialty Start Date End Date Yung Madrigal MD RETIRED PCP - Orthopaedics Orthopedics 08/26/12 01/20/24 Winston Villatoro OD [facility] [place] [address] [place] [address] PCP - Ophthalmology Ophthalmology 02/11/13 Denise Woodson Ra, APRN PLATFORM MAN [address] [facility] [place] [address] PCP - General Family Practice 09/21/20 Denise Woodson Ra, APRN PLATFORM MAN [address] [facility] [place] [address] Assigned PCP 07/17/20 Usha Simon APRN PLATFORM MAN [address] [place] [address]805 Nurse Practitioner Neurological Surgery 01/24/24 Dangelo Salinas MD [address] [facility] [address] [address] Neurology 01/27/24 Usha Simon APRN PLATFORM MAN [address] [place] [address] Assigned Neuroscience Provider 02/06/24 Anastasia Stearns, RN Lead Transfer Coordinator 02/06/24 Germaine Lopez W Community Health Worker Primary Care - CC 02/18/24 documented as of this encounter
--- OUTSIDE RECORDS SUMMARY | 2024-02-22 15:26 | XMS_ITS | Encounter Summary ---
Author Organization [employer] Address [address] [place] [address] Care Team Providers Care Trade Economist Name Role Phone Timmy Perez MD Unavailable Unavailable Yung Madrigal MD Unavailable Unavailable Winston Villatoro OD Unavailable [phone] Apple Sykes MD Primary Care Provider [phone] Westley Bates MD Unavailable [phone] Alessandra Cabrales APRN STAGE ELECTRICIAN HELPER Primary Car e Provider Serum, Clara Garland MD Primary Care Provider Serum, Clara Garland MD Unavailable [phone] Serum, Clara Garland MD Unavailable [phone] Denise Woodson Ra, APRN STAGE ELECTRICIAN HELPER Unavailable + [phone] Denise Woodson Ra, APRN STAGE ELECTRICIAN HELPER Primary Care Provid er Usha Simon APRN STAGE ELECTRICIAN HELPER Unavailable + [phone] Dangelo Salinas MD Unavailable Usha Simon APRN STAGE ELECTRICIAN HELPER Unavailable +- [phone] Anastasia Stearns RN Unavailable +[phone] Germaine Lopez CHW Unavailable +[phone] Reason for Visit * Reason Onset Date Comments MyChart Communication 05/30/2013 Encounter Details Date Type Department Care Team (Latest Contact Info) Description 05/30/2013 MyC Medical Advice [facility] [place] [facility] [address] [place] [phone] Apple Sykes MD [address] [place] [address] MyChart Communication Social History Tobacco Use Types [...] Info) Description 02/26/2024 1:40 PM CDT Appointment [facility] [place] [facility] [address] [place] [address] Denise Woodson Ra, TRANSMISSION ASSEMBLER STAGE ELECTRICIAN HELPER [address] [place] [address] 02/26/2024 2:15 PM CDT Therapy Visit [address] [phone] Danya You, PA [address] [place], [place] [address] Charis Chacon SLP [facility] [address] [place] [address] 02/26/2024 3:00 PM CDT Therapy Visit [address] [phone] Danya You, PA [address] [place] [address] Isabel Beaulieu OTR [facility] 150 [place] [address] 02/27/2024 4:45 PM CDT Therapy Visit [address] [phone] Danya You, PA [address] [place], [place] 83[address] Vanessa Duggan, PT 03/05/2024 1:30 PM CDT Therapy Visit [address] [phone] Danya You, PA [address] [address] Isabel Beaulieu, OTJah [address] [address] 03/05/2024 3:15 PM CDT Therapy Visit [address] [address] Danya You, PA [address] [place] [address] Charis Chacon, JUAN [facility] [address] [place] [address] 03/05/2024 4:15 PM CDT Therapy Visit [address] [phone] Danya You, PA [address] [address] Delicia George, PT [address] [place] [address] 03/11/2024 2:15 PM CDT Therapy Visit [address] [address] Danya You, PA [address] [address] Isabel Beaulieu, OTR [address] [address] 03/11/2024 3:00 PM CDT Therapy Visit [address] [address] Danya You, PA [facility] [address] [address] Charis Chacon, JUAN [facility] [address] [place] [address] 03/11/2024 4:15 PM CDT Therapy Visit [address] [phone] Danya You, PA [facility] [address] [address] Delicia George, PT [facility] [address] [place] [address] 03/17/2024 10:00 AM CDT Office Visit [facility] [address] [place] [address] Denise Woodson Ra, TRANSMISSION ASSEMBLER [facility] [address] [place] [address] 03/17/2024 1:30 PM CDT Therapy Visit [address] [address] Danya You, PA [address] [place] [address] Isabel Beaulieu, OTR [address] [address] 03/17/2024 2:30 PM CDT Therapy Visit [address] [address] Danya You, PA [address] [address] Charis Chacon SLP [facility] [address] [place] [address] 03/17/2024 4:00 PM CDT Therapy Visit [address] [address] Danya You, PA [facility] [address] [address] Vanessa Duggan, GALINA 03/23/2024 10:30 AM CDT Office Visit [facility] [address] [place] [address] Denise Woodson Ra, TRANSMISSION ASSEMBLER [facility] [address] [place], [place] [address] 03/26/2024 1:30 PM CDT Therapy Visit [facility] 150 [facility] [place] [address] Danya You, AMAIRANI 2450 [facility] [address] [address] Isabel Beaulieu, OTR [facility] 150 [place] [address] 03/26/2024 2:30 PM CDT [facility] 150 [place] [address] Danya You, AMAIRANI [facility] [address] [address] Charis Chacon, [facility] [address] [place] [address] 03/26/2024 3:30 PM CDT Therapy Visit [facility] 150 [place] [address] Danya You, AMAIRANI [facility] [address] [address] Delicia George, PT [facility] [address] [address] 04/02/2024 2:15 PM CDT Therapy [facility] 150 [place] [address] Danya Yuo, AMAIRANI [facility] [address] [address] Isabel Beaulieu, OTR [facility] 150 [place] [address] 04/02/2024 3:15 PM CDT [facility] [address] Danya You PA [address] [place] [address] Charis Chacon SLP [facility] [address] [place] [address] 04/02/2024 4:15 PM CDT Therapy Visit [address] [address] Danya You, PA [address] [address] Delicia George, PT [facility] [address] [place] [address] 04/09/2024 3:15 PM CDT Therapy Visit [address] [address] Danya You, PA [address] [place] [address] Charis Chacon, JUAN [facility] [address] [place] [address] 04/09/2024 4:15 PM CDT Therapy Visit [address] [address] Danya You PA [address] [place] [address] Delicia George, PT [facility] 909 [place] [address] 04/15/2024 9:30 AM CDT Therapy Visit [address] [phone] Danya You, PA [address] [place] [address] 213 [place] [address] Danya Restrepo, INDEX EDITOR 04/23/2024 2:30 PM CDT Therapy Visit [address] [address] Danya You, PA [address] [place], [place] [address]Analy [address] [address] Charis Chacon, [facility] [address] [facility] [place] [address] 05/05/2024 2:30 PM CDT Office Visit [facility] [address], [address] [place] [address] Rohit Barcenas MD 420 [facility] 295 [place] [address] 06/23/2024 11:00 AM CDT Virtual Visit [facility] [address] [place] [phone] Kristin Vázquez, [facility] [address] [facility] [place] [phone] 06/30/2024 2:00 PM CDT Virtual Visit [facility] [address] [facility] [phone] Gurpreet Kristin M, [facility] 6[address] [facility] PRIMO CORTEZ [phone] documented as of this encounter Visit Diagnoses Not on filedocumented in this encounter Care Teams Trade Economist Relationship Specialty Start Date End Date Timmy Perez MD PCP - Obstetrics/Gynecology 03/02/08 08/07/15 Yung Madrigal MD RETIRED PCP - Orthopaedics Orthopedics 08/26/12 01/20/24 Winston Villatoro, OD [facility] [place] [address] [place] [address] PCP - Ophthalmology Ophthalmology 02/11/13 Apple Sykes MD [facility] [place] [address] [place] [address] PCP - General Family Practice 05/04/13 10/25/16 Westley Bates MD XXX RETIRED XXX [address] [place] [address] PCP - ENT Otolaryngology 05/14/13 07/28/18 Georgina-Alessandra Gómez APRN STAGE ELECTRICIAN HELPER [address] [place] [address] [place] [address] PCP - General Nurse Practitioner 10/26/16 02/06/17 Clara Cornell MD [address] [place] [address] [place] [address] PCP - General Internal Medicine 02/07/17 09/20/20 Clara Cornell MD 8675 [place] [address] PCP - Assigned PCP 01/17/17 11/18/18 Denise Woodson Ra TRANSMISSION ASSEMBLER STAGE ELECTRICIAN HELPER [address] [place] [address] PCP - General Family Practice 09/21/20 Clara Cornell MD [address]75 [place] [address] Assigned PCP 01/17/17 07/16/20 Denise Woodson Ra TRANSMISSION ASSEMBLER STAGE ELECTRICIAN HELPER [address] [place] [address] Assigned PCP 07/17/20 Usha Simon APRN STAGE ELECTRICIAN HELPER [address] [place] [address]33405 Nurse Practitioner Neurological Surgery 01/24/24 Dangelo Salinas MD [address] [place] [address] [address] Neurology 01/27/24 Usha Simon APRN STAGE ELECTRICIAN HELPER [address] [address]12[address] Assigned Neuroscience Provider 02/06/24 Anastasia Stearns, RN Lead Comparator Operator 02/06/24 Germiane Lopez, CHW Community Health Worker Primary Care - CC 02/18/24 documented as of this encounter
--- OUTSIDE RECORDS SUMMARY | 2024-02-22 15:26 | XMS_ITS | Encounter Summary ---
Author Organization [facility] Address [address] [place] [address] Care Team Providers Care Underground Distribution Engineer Name Role Phone Timmy Perez MD Unavailable Unavailable Yung Madrigal MD Unavailable Unavailable Winston Villatoro OD Unavailable [phone] Apple Sykes MD Primary Care Provider [phone] Westley Bates MD Unavailable [phone] Alessandra Cabrales APRN PIPE FITTINGS MOLDER Primary Car e Provider Serum, Clara Graland MD Primary Care Provider Serum, Clara Garland MD Unavailable [phone] Serum, Clara Garland MD Unavailable [phone] Denise Woodson Ra, APRN PIPE FITTINGS MOLDER Unavailable + [phone] Denise Woodson Ra, APRN PIPE FITTINGS MOLDER Primary Care Provid er Usha Simon APRN PIPE FITTINGS MOLDER Unavailable + [phone] Dangelo Salinas MD Unavailable Usha Simon APRN PIPE FITTINGS MOLDER Unavailable + [phone] Anastasia Stearns RN Unavailable [phone] Germaine Lopez CHW Unavailable [phone] Encounter Details Date Type Department Care Team (Late st Contact Info) Description 05/26/2013 MyC Medical Advice [facility] [place] Orthopedics [address] [place] [address] Yung Madrigal MD RETIRED Social History Tobacco [...] Info) Description 02/26/2024 1:40 PM CDT Appointment [facility] [address] [place] [address] [place] [address] Denise Woodson Ra, CATTLE KNOCKER PIPE FITTINGS MOLDER [address] [facility] [place] [address] 02/26/2024 2:15 PM CDT Therapy Visit [address] [phone] Danya You, PA [address] [place], [place] 27[address] Charis Chacon SLP [facility] [address] [place] [address] 02/26/2024 3:00 PM CDT Therapy Visit [address] [address] Danya You, PA [address] [place] [address] Isabel Beaulieu OTR [address] [address] 02/27/2024 4:45 PM CDT Therapy Visit [facility] 150 [place] [address] Danya You, PA [address] [place] [address] Vanessa Duggan, PT 03/05/2024 1:30 PM CDT Therapy Visit [address] [address] Danya You, PA [address] 2922[address] Isabel Beaulieu, OTR [address] [address] 03/05/2024 3:15 PM CDT Therapy Visit [address] [phone] Danya You, PA [address] [address] Charis Chacon, [facility] [address] [place] [address] 03/05/2024 4:15 PM CDT Therapy Visit [address] [phone] Danya You, PA [address] [address] Delicia George, PT [facility] [address] [address] 03/11/2024 2:15 PM CDT Therapy Visit [facility] 150 [place] [address] Danya You PA [address] [address] Isabel Beaulieu, OTR [address] [address] 03/11/2024 3:00 PM CDT Therapy Visit [address] [address] Danya You, AMAIRANI [address] [address] Charis Chacon, NETWORK/TELECOM ENGINEER [facility] [address] [place] [address] 03/11/2024 4:15 PM CDT Therapy Visit [address] [phone] Danya You, PA [address] [place] [address] Delicia George, PT [facility] [address] [address] 03/17/2024 10:00 AM CDT Office Visit [facility] [address] [place] [address] Denise Woodson Ra, CATTLE KNOCKER [facility] [address] [place], [place] [address] 03/17/2024 1:30 PM CDT Therapy Visit [facility] 150 [place] [address] Danya You PA [address] [facility] [address] [address] Isabel Beaulieu, OTR [facility] 150 [place] [address] 03/17/2024 2:30 PM CDT Therapy Visit [address] [phone] Danya You, AMAIRANI [facility] [address] [address] Charis Chacon, [facility] [address] [place] [address] 03/17/2024 4:00 PM CDT Therapy Visit [address] [phone] Danya You, AMAIRANI [address] [place], [place] [address]Analy [address] [address] Vanessa Duggan, PT 03/23/2024 10:30 AM CDT Office Visit [facility] [address] [place] [address] Denise Woodson Ra, CATTLE KNOCKER PIPE FITTINGS MOLDER [address] [place], [place] [address] 03/26/2024 1:30 PM CDT Therapy Visit [address] [phone] Danya You PA [address] [place] [address] [address] Isabel Beaulieu, OTR [facility] [address] [place] [address] 03/26/2024 2:30 PM CDT Therapy Visit [facility] 150 [place] [address] Danya You, PA [address] [address] Charis Chacon, [facility] [address] [place] [address] 03/26/2024 3:30 PM CDT Therapy Visit [address] [phone] Danya You, PA [address] [address] Delicia George, PT [facility] [address] [place] [address] 04/02/2024 2:15 PM CDT Therapy Visit [facility] 150 [place] [address] Danya You, PA [address] [address] Isabel Beaulieu, OTR [facility] 150 [place] [address] 04/02/2024 3:15 PM CDT Therapy Visit [address] [place] [address] Danya You PA [address] [address] Charis Chacon, J[facility]AN [facility] [address] [place] [address] 04/02/2024 4:15 PM CDT Therapy Visit [address] [phone] Danya You, PA 2450 [facility] [address] [address] Delicia George, PT [address] [address] 04/09/2024 3:15 PM CDT Therapy Visit [address] [phone] Danya You, PA [address] [address] Charis Chacon, JUAN [facility] [address] [place] [address] 04/09/2024 4:15 PM CDT Therapy Visit [address] [address] Danya You, PA [facility] [address] [address] Delicia George, PT [address] [address] 04/15/2024 9:30 AM CDT Therapy Visit [facility] 150 [place] [address] Danya You, PA 2450 [facility] [address] [place] [address] Danya Restrepo, NETWORK/TELECOM ENGINEER 04/23/2024 2:30 PM CDT Therapy Visit M [address] [phone] Danya You, PA [address] [place], [place] [address]E [address] [place] [address] Charis Chacon, J[facility]AN [facility] [address] [place] [address] 05/05/2024 2:30 PM CDT Office Visit [facility] Epilepsy [facility] [address], [address] [place] [phone] Rohit Barcenas MD [address] [place] [address] [address] [place] [address] 06/23/2024 11:00 AM CDT Virtual Visit [facility] [address] [place] [phone] Kristin Vázquez, [facility] 6341 [place] [address] 06/30/2024 2:00 PM CDT Virtual Visit [facility] [address]01 [place] [address] Kristin Vázquez, [facility] 6341 [facility] PRIMO GARCIA [address] documented as of this encounter Visit Diagnoses Not on filedocumented in this encounter Care Teams Underground Distribution Engineer Relationship Specialty Start Date End Date Timmy Perez MD PCP - Obstetrics/Gynecology 03/02/08 08/07/15 Yung Madrigal MD RETIRED PCP - Orthopaedics Orthopedics 08/26/12 01/20/24 Winston Villatoro, OD [facility] [place] [address] [place] [address] PCP - Ophthalmology Ophthalmology 02/11/13 Apple Sykes MD [facility] [place] [address] [place] [address] PCP - General Family Practice 05/04/13 10/25/16 Westley Bates MD XXX RETIRED XXX [address] [place] [address] PCP - ENT Otolaryngology 05/14/13 07/28/18 [facility]N PIPE FITTINGS MOLDER [address] [facility] [place] [address] PCP - General Nurse Practitioner 10/26/16 02/06/17 Clara Cornell MD [address] [facility] [place] [address] PCP - General Internal Medicine 02/07/17 09/20/20 Clara Cornell MD [address] [place] [address] PCP - Assigned PCP 01/17/17 11/18/18 Denise Woodson Ra, APRN PIPE FITTINGS MOLDER [address] [place] [address] PCP - General Family Practice 09/21/20 Clara Cornell MD [address] [place] [address] Assigned PCP 01/17/17 07/16/20 Denise Woodson Ra, APRN PIPE FITTINGS MOLDER [address] [facility] [address] Assigned PCP 07/17/20 Usha Simon APRN PIPE FITTINGS MOLDER [address] [address] Nurse Practitioner Neurological Surgery 01/24/24 [place] [address] [place], [place] [address] [address] [address] Neurology 01/27/24 Usha Simon APRN PIPE FITTINGS MOLDER [address] [place] [address] Assigned Neuroscience Provider 02/06/24 Anastasia Stearns, RN Lead Shuttle Fixer 02/06/24 Germaine Lopez, CHW Community Health Worker Primary Care - CC 02/18/24 documented as of this encounter
--- OUTSIDE RECORDS SUMMARY | 2024-02-22 15:27 | XMS_ITS | Encounter Summary ---
Author Organization [facility] Address [address] [place] [address] Care Team Providers Care Sensor Technician Name Role Phone Timmy Perez MD Unavailable Unavailable Yung Madrigal MD Unavailable Unavailable Frw, None Primary Care Provider Unavailabl e Winston Villatoro OD Unavailable [phone] Apple Sykes MD Primary Care Provider [phone] Westley Bates MD Unavailable [phone] GeorginaAlessandra Gómez APRN RETAIL PROJECT MERCHANDISER Primary Car e Provider Serum, Clara Garland MD Primary Care Provider Serum, Clara Garland MD Unavailable [phone] Serum, Clara Garland MD Unavailable [phone] Denise Woodson Ra, APRN RETAIL PROJECT MERCHANDISER Unavailable + [phone] Denise Woodson Ra, APRN RETAIL PROJECT MERCHANDISER Primary Care Provid er Usha Simon APRN RETAIL PROJECT MERCHANDISER Unavailable + [phone] Dangelo Salinas MD Unavailable Usha Simon APRN RETAIL PROJECT MERCHANDISER Unavailable + [phone] Anastasia Stearns RN Unavailable [phone] Germaine Lopez CHW Unavailable [phone] Encounter Details Date Type Department Care Team (Late st Contact Info) Description 01/30/2006 [facility] in [place] Inpatient Dept [address] [phone] Frw, Inpatient Provider Social History Tobacco Use [...] pain. PROCEDURE: TOTAL VAGINAL HYSTERECTOMY. SURGEON: Chris PBX TEACHER: Radha ANESTHESIA: Spinal ESTIMATED BLOOD LOSS: 100 [...] room awake and in good condition. Tanisha Edwards/bianca cc: documented in this encounter Plan of Treatment Upcoming Encounters Date Type Department Care Team (Late st Contact Info) Description 02/26/2024 1:40 PM CDT Appointment [facility] [address] [place] [address] Denise Woodson Ra, DRYWALL SPRAYER RETAIL PROJECT MERCHANDISER [address] [facility] [address] 02/26/2024 2:15 PM CDT Therapy Visit [address] [phone] Danya You PA [address] [place], [place] [phone] Charis Chacon [facility] [address] [place] [address] 02/26/2024 3:00 PM CDT Therapy Visit [address] [phone] Danya You PA [address] [place], [place] 0837[address] Isabel Baeulieu OTR [facility] 150 [place] [address] 02/27/2024 4:45 PM CDT Therapy Visit [facility] 150 [place] [address] Danya You, PA 2450 [facility] [address] [address] Vanessa Duggan, PT 03/05/2024 1:30 PM CDT Therapy Visit [address] [phone] Danya You, PA 2450 [facility] [address] [address] Isabel Beaulieu OTJah [address] [address] 03/05/2024 3:15 PM CDT Therapy Visit [address] [phone] Danya You, PA 2450 [facility] [address] [address] Charis Chacon, [facility] [address] [place] [address] 03/05/2024 4:15 PM CDT Therapy Visit [address] [address] Danya You, PA [address] [place] [address] [address] Delicia George, PT [facility] [address] [place] [address] 03/11/2024 2:15 PM CDT Therapy Visit [address] [phone] Danya Yuo, AMAIRANI [address] [address] Isabel Beaulieu, OTR [address] [address] 03/11/2024 3:00 PM CDT Therapy Visit [address] [phone] Danya You, PA [address] [address] Charis Chacon, JUAN [facility] [address] [place] [address] 03/11/2024 4:15 PM CDT Therapy Visit [address] [phone] Danya You, PA [address] [place] [address] Delicia George, PT [facility] [address] [place] [address] 03/17/2024 10:00 AM CDT Office Visit [facility] [address] [place] [address] Denise Woodson Ra, DRYWALL SPRAYER RETAIL PROJECT MERCHANDISER [address] [place], [place] 3793868 03/17/2024 1:30 PM CDT Therapy Visit [facility] 150 [place] [address] Danya You PA [facility] [address] [address] Isabel Beaulieu, OTR [address] [address] 03/17/2024 2:30 PM CDT Therapy Visit [address] [phone] Danya You, AMAIRANI [facility] [address] [address] Charis Chacon, JUAN [facility] [address] [place] [address] 03/17/2024 4:00 PM CDT Therapy Visit [address] [phone] Danya You, AMAIRANI [address] [place] [address] Vanessa Duggan, PT 03/23/2024 10:30 AM CDT Office Visit [facility] [address] [place] [phone] Denise Woodson Ra, DRYWALL SPRAYER [facility] [address] [place], [place] 53869[address] 03/26/2024 1:30 PM CDT Therapy Visit [address] [phone] Danya You PA [address] [place] [address] Isabel Beaulieu, OTR [facility] [address] [place] [address] 03/26/2024 2:30 PM CDT Therapy Visit [address] [phone] Danya You, AMAIRANI [address] [address] Charis Chacon, [facility] [address] [place] [address] 03/26/2024 3:30 PM CDT Therapy Visit [address] [phone] Danya You PA [address] [address] Delicia George, PT [facility] [address] [place] [address] 04/02/2024 2:15 PM CDT Therapy [facility] [place] [phone] Danya You, AMAIRANI [address] [place] [place] [address] Isabel Beaulieu, OTR [facility] [address] [place] [address] 04/02/2024 3:15 PM CDT Therapy Visit [address] [address] Danya You PA [address] [address] Charis Chacon SLP [facility] [address] [place] [address] 04/02/2024 4:15 PM CDT Therapy Visit [address] [phone] Danya You, AMAIRANI [address] [place] [address] [address] Delicia George, PT [address] [address] 04/09/2024 3:15 PM CDT Therapy Visit [address] [phone] Danya You, PA [facility] [address] [address] Charis Chacon, J[facility]AN [facility] [address] [place] [address] 04/09/2024 4:15 PM CDT Therapy Visit [address] [phone] Danya You PA [facility] [address] [address] Delicia George, PT [address] [address] 04/15/2024 9:30 AM CDT Therapy Visit [facility] 150 [place] [address] Danya You, PA [address] [place] [address] Danya Restrepo, WASTE COLLECTION DRIVER 04/23/2024 2:30 PM CDT Therapy Visit M [facility] 150 [place] [phone] Danya You, PA 2450 [facility] [address] [place] [address] Charis Chacon, WASTE COLLECTION DRIVER [facility] [address] [place] [address] 05/05/2024 2:30 PM CDT Office Visit M [facility] Epilepsy [facility] [address], [address] [place] [phone] Rohit Barcenas MD 420 [facility] 295 [place] [address] 06/23/2024 11:00 AM CDT Virtual Visit [facility] [address] [place] [phone] Kristin Vázquez, [facility] 6341 [place] [address] 06/30/2024 2:00 PM CDT Virtual Visit [facility] [address] [place] [phone] Kristin Vázquez, [facility] 6341 [facility] [address] [phone] documented as of this encounter Visit Diagnoses Not on filedocumented in this encounter Care Teams Sensor Technician Relationship Specialty Start Date End Date Timmy Perez MD PCP - Obstetrics/Gynecology 03/02/08 08/07/15 Yung Madrigal MD RETIRED PCP - Orthopaedics Orthopedics 08/26/12 01/20/24 Frw, None PCP - General Family Practice 08/26/12 05/03/13 Winston Villatoro, OD [facility] [place] [address] [place] [address] PCP - Ophthalmology Ophthalmology 02/11/13 Apple Sykes MD [facility] [place] [address] [place] [address] PCP - General Family Practice 05/04/13 10/25/16 Westley Bates MD XXX RETIRED XXX [address] [place] [address] PCP - ENT Otolaryngology 05/14/13 07/28/18 Alessandra Cabrales APRN RETAIL PROJECT MERCHANDISER [address] [facility] [address] [place] [id number] PCP - General Nurse Practitioner 10/26/16 02/06/17 Clara Cornell MD 3[address] [facility] [address] [place] [address] PCP - General Internal Medicine 02/07/17 09/20/20 Clara Cornell MD [address] [place] [address] PCP - Assigned PCP 01/17/17 11/18/18 Denise Woodson Ra DRYWALL SPRAYER RETAIL PROJECT MERCHANDISER [address] [place] [address] PCP - General Family Practice 09/21/20 Clara Cornell MD [address] [place] [address] Assigned PCP 01/17/17 07/16/20 Denise Woodson Ra, APRN RETAIL PROJECT MERCHANDISER [address] [place] [address] Assigned PCP 07/17/20 Usha Simon APRN RETAIL PROJECT MERCHANDISER [address] 504045 Nurse Practitioner Neurological Surgery 01/24/24 Dangelo Salinas MD [address] [place] [address] Neurology 01/27/24 Usha Simon APRN RETAIL PROJECT MERCHANDISER [address] [address] Assigned Neuroscience Provider 02/06/24 Anastasia Stearns, RN Lead House Painter 02/06/24 Germaine Lopez, CHW Community Health Worker Primary Care - CC 02/18/24 documented as of this encounter
--- OUTSIDE RECORDS SUMMARY | 2024-02-22 15:27 | XMS_ITS ---
Author Organization [facility] Address [address] [place] [address] Care Team Providers Care Knifeman Name Role Phone Winston Villatoro OD Unavailable [phone] Denise Woodson Ra, APRN PNEUDRAULIC SYSTEMS MECHANIC Unavailable [phone] Denise Woodson Ra, APRN PNEUDRAULIC SYSTEMS MECHANIC Primary Care Provid er Usha Simon APRN PNEUDRAULIC SYSTEMS MECHANIC Unavailable [phone] Dangelo Salinas MD Unavailable Usha Simon APRN PNEUDRAULIC SYSTEMS MECHANIC Unavailable [phone] Anastasia Stearns RN Unavailable [phone] Germaine Lopez CHW Unavailable [phone] Transitional Care Management Status:Closed (Closed) Start date:01/27/2024 Enrollment date:01/28/2024 End date:02/10/2024 Close reason:Goals met Continued Care and Services Coordination
--- OUTSIDE RECORDS SUMMARY | 2024-02-22 15:27 | XMS_ITS | Encounter Summary ---
Author Organization [facility] Address [address] [place] [address] Care Team Providers Care Metal Buffer Name Role Phone Timmy Perez MD Unavailable Unavailable Yung Madrigal MD Unavailable Unavailable Winston Villatoro OD Unavailable [phone] Apple Sykes MD Primary Care Provider [phone] Westley Bates MD Unavailable Alessandra Cabrales APRN WATCH TECHNICIAN Primary Car e Provider Serum, Clara Garland MD Primary Care Provider Serum, Clara Garland MD Unavailable [phone] Serum, Clara Garland MD Unavailable [phone] Denise Woodson Ra, APRN WATCH TECHNICIAN Unavailable + [phone] Denise Woodson Ra, APRN WATCH TECHNICIAN Primary Care Provid er Usha Simon APRN WATCH TECHNICIAN Unavailable + [phone] Dangelo Salinas MD Unavailable Usha Simon APRN WATCH TECHNICIAN Unavailable + [phone] Anastasia Stearns RN Unavailable [phone] Germaine Lopez CHW Unavailable [phone] Encounter Details Date Type Department Care Team (Late st Contact Info) Description 05/06/2013 MyC Medical Advice [facility] in [facility] [address] [place] [address] Apple Sykes MD [address] [place] [address] Social History Tobacco Use Types Packs/Day Years [...] PM CDT Appointment [facility] [address] [place] [phone] Denise Woodson Ra, FUNERAL HOME GENERAL MANAGER WATCH TECHNICIAN [address] [place], [place] [address] 02/26/2024 2:15 PM CDT Therapy Visit [address] [phone] Danya You, AMAIRANI [address] [place] [address] Charis Chacon, J[facility]AN [facility] [address] [place] [address] 02/26/2024 3:00 PM CDT Therapy Visit [facility] 150 [place] [phone] Danya You PA [address] [place] [address] Isabel Beaulieu OTR [facility] 150 [facility] [place] 374917 02/27/2024 4:45 PM CDT Therapy Visit [facility] 150 [place] [address] Danya You PA [address] [place] [address] Vanessa Duggan, PT 03/05/2024 1:30 PM CDT Therapy Visit [facility] 150 [place] [address] Danya You, AMAIRANI [address] [place] [address] 901544 Isabel Beaulieu OTR [address] [address] 03/05/2024 3:15 PM CDT Therapy Visit [address] [phone] Danya You, AMAIRANI [address] [address] Charis Chacon, [facility] [address] [place] [address] 03/05/2024 4:15 PM CDT Therapy Visit [address] [phone] Danya You, AMAIRANI [address] [place] [address] Delicia George, PT [facility] [address] [address] 03/11/2024 2:15 PM CDT Therapy Visit [address] [phone] Danya You, PA [address] [address] Isabel Beauileu OTR [address] [address] 03/11/2024 3:00 PM CDT Therapy Visit [address] [address] Danya You, PA [facility] [address] [address] Charis Chacon, J[facility]AN [facility] [address] [place] [address] 03/11/2024 4:15 PM CDT Therapy Visit [address] [address] Danya You, PA [address] [place] [address] Delicia George, PT [facility] [address] [place] [address] 03/17/2024 10:00 AM CDT Office Visit [facility] [address] [place] [address] Denise Woodson Ra, FUNERAL HOME GENERAL MANAGER [facility] [address] [place] [address] 03/17/2024 1:30 PM CDT Therapy Visit [address] [phone] Danya You, PA 2450 [facility] 213 [place] [address] Isabel Beaulieu OTJah [address] [address] 03/17/2024 2:30 PM CDT Therapy Visit [address] [phone] Danya You, PA 2450 [facility] 213 [place] [address] Charis Chacon, J[facility] [address] [place] [address] 03/17/2024 4:00 PM CDT Therapy Visit [address] [phone] Danya You, PA [address] [place] [address] 213 [place] [address] Vanessa Duggan, GALINA 03/23/2024 10:30 AM CDT Office Visit [facility] [address] [place] [address] Denise Woodson Ra, FUNERAL HOME GENERAL MANAGER [facility] [address] [place], [place] 236[address] 03/26/2024 1:30 PM CDT Therapy Visit [address] [address] Danya You PA 2450 [facility] JIE SOTO [address] [place] [address] Isabel Beaulieu, OTR [facility] 150 [facility] [place] [address] 03/26/2024 2:30 PM CDT [facility] 150 [place] [address] Danya You, AMAIRANI [address] [place] [address] [place] [address] Charis Chacon, [facility] [address] [place] [address] 03/26/2024 3:30 PM CDT Therapy Visit [facility] 150 [place] [address] Danya You, AMAIRANI 2450 [facility] [address] [address] Delicia George, PT [facility] [address] [place] [address] 04/02/2024 2:15 PM CDT Therapy Visit [facility] [address] [place] [address] Danya You, AMAIRANI [address] [place] [address] [place] [address] Isabel Beaulieu, OTR [facility] 150 [place] [address] 04/02/2024 3:15 PM CDT Therapy Visit [address] [phone] Danya You PA 2450 [facility] [address] [place] [address] Charis Chacon SLP [facility] [address] [place] [address] 04/02/2024 4:15 PM CDT Therapy Visit [address] [phone] Danya You, PA 2450 [facility] [address] [address] Delicia George, PT [facility] [address] [place] [address] 04/09/2024 3:15 PM CDT Therapy Visit [address] [phone] Danya You, PA [facility] [address] [place] [address] Charis Chacon, J[facility]AN [facility] [address] [place] [address] 04/09/2024 4:15 PM CDT Therapy Visit [address] [phone] Danya You PA [facility] [address] [address] Delicia George, PT [facility] 909 [place] [address] 04/15/2024 9:30 AM CDT Therapy Visit M [facility] 150 [place] [address] Danya You, PA [address] [place] [address] 213 [place] [address] Danya Restrepo, ASSOCIATE PRODUCT INTEGRITY ENGINEER 04/23/2024 2:30 PM CDT Therapy Visit M [address] [phone] Danya You, PA [address] [place] [address] 213 [place] [address] Charis Chacon, ASSOCIATE PRODUCT INTEGRITY ENGINEER [facility] [address] [place] [address] 05/05/2024 2:30 PM CDT Office Visit M [facility] [place] Ep[facility] [address] [facility], [address] [place] [address] Rohit Barcenas MD 420 [facility] 295 [place] [address] 06/23/2024 11:00 AM CDT Virtual Visit [facility] 6401 [place] [phone] Kristin Vázquez, [facility] 6341 [place] [address] 06/30/2024 2:00 PM CDT Virtual Visit [facility] PR[address] [phone] Gurpreet Kristin Saez, [facility] 6341 [facility] [address] [place] [address] documented as of this encounter Visit Diagnoses Not on filedocumented in this encounter Care Teams Metal Buffer Relationship Specialty Start Date End Date Timmy Perez MD PCP - Obstetrics/Gynecology 03/02/08 08/07/15 Yung Madrigal MD RETIRED PCP - Orthopaedics Orthopedics 08/26/12 01/20/24 Winston Villatoro, OD [facility] [place] [address] [place] [address] PCP - Ophthalmology Ophthalmology 02/11/13 Apple Sykes MD [facility] [place] [address] [place] [address] PCP - General Family Practice 05/04/13 10/25/16 Westley Bates MD XXX RETIRED XXX [address] [place] [address] PCP - ENT Otolaryngology 05/14/13 07/28/18 GeorginaAlessandra Celeste APRN WATCH TECHNICIAN 3[address] [facility] [address] [place] [id number] PCP - General Nurse Practitioner 10/26/16 02/06/17 Clara Cornell MD [address] [facility] [address] [place] [address] PCP - General Internal Medicine 02/07/17 09/20/20 Clara Cornell MD [address]75 [place] [address] PCP - Assigned PCP 01/17/17 11/18/18 Denise Woodson Ra FUNERAL HOME GENERAL MANAGER WATCH TECHNICIAN [address] [place] [address] PCP - General Family Practice 09/21/20 Clara Cornell MD [address] [place] [address] Assigned PCP 01/17/17 07/16/20 Denise Woodson Ra, APRN WATCH TECHNICIAN [address] [place] [address] Assigned PCP 07/17/20 Usha Simon APRN WATCH TECHNICIAN [address] 113[address] Nurse Practitioner Neurological Surgery 01/24/24 Dangelo Salinas MD [address] [place] [address] Neurology 01/27/24 Usha Simon APRN WATCH TECHNICIAN [address] [address] Assigned Neuroscience Provider 02/06/24 Anastasia Stearns, RN Lead Fire Hydrant Mechanic 02/06/24 Germaine Lopez, CHW Community Health Worker Primary Care - CC 02/18/24 documented as of this encounter
--- OUTSIDE RECORDS SUMMARY | 2024-02-22 15:27 | XMS_ITS | Encounter Summary ---
Author Organization [place] Address [address] [place] [address] Care Team Providers Care Qa Architect Name Role Phone Timmy Perez MD Unavailable Unavailable Yung Madrigal MD Unavailable Unavailable Frw, None Primary Care Provider Unavailabl e Winston Villatoro OD Unavailable [phone] Apple ySkes MD Primary Care Provider [phone] Westley Bates MD Unavailable [phone] GeorginaAlessandra Gómez APRN DRESS CUTTER Primary Car e Provider Serum, Clara Garland MD Primary Care Provider Serum, Clara Garland MD Unavailable [phone] Serum, Clara Garland MD Unavailable [phone] Denise Woodson Ra, APRN DRESS CUTTER Unavailable + [phone] Denise Woodson Ra, APRN DRESS CUTTER Primary Care Provid er Usha Simon APRN DRESS CUTTER Unavailable + [phone] Dangelo Salinas MD Unavailable Usha Simon APRN DRESS CUTTER Unavailable + [phone] Anastasia Stearns RN Unavailable +[phone] Germaine Lopez CHW Unavailable +[phone] Reason for Visit * Reason Onset Date Comments Medication Question 04/21/2013 Farhan Saez [facility] Encounter Details Date Type Department Care Team ([facility] st Contact Info) Description 04/21/2013 Telephone [facility] in [facility] [address] [place] [address] Janna Rodriguez, medical receptionist medical assistant Question ([facility]) Social History Tobacco Use [...] Info) Description 02/26/2024 1:40 PM CDT Appointment [facility] [address] [facility] [address] [place] [address] Denise Woodson Ra, HOUSE CALLS NURSE DRESS CUTTER [address] [place] [address] 02/26/2024 2:15 PM CDT Therapy Visit [facility] [address] [place] [address] Danya You, AMAIRANI 2450 [facility] 213 [place] [address] Charis Chacon, JUAN [facility] [address] [place] [address] 02/26/2024 3:00 PM CDT Therapy Visit [address] [phone] Danya You, AMAIRANI 2450 [facility] 213 [place] [address] Isabel Beaulieu OTR [facility] 150 [place] [address] 02/27/2024 4:45 PM CDT Therapy Visit [address] [phone] Danya You, PA 2450 [facility] 213 [place], [place] [address] Vanessa Duggan, PT 03/05/2024 1:30 PM CDT Therapy Visit [facility] [address] [place] [address] Danya You PA 2450 [facility] 213 [place] [address] Isabel Beaulieu OTR [facility] 150 [place] [address] 03/05/2024 3:15 PM CDT Therapy Visit [facility] [address] [place] [address] Danya You, AMAIRANI [address] [address] Charis Chacon SLP [facility] [address] [place] [address] 03/05/2024 4:15 PM CDT Therapy Visit [address] [phone] Danya You, PA 2450 [facility] [address] [address] Delicia George, PT [facility] [address] [address] 03/11/2024 2:15 PM CDT Therapy Visit [address] [phone] Danya You, PA [facility] [address] [address] Isabel Beaulieu, OTR [address] [address] 03/11/2024 3:00 PM CDT Therapy Visit [address] [phone] Danya You PA [facility] [address] [address] Charis Chacon, JUAN [facility] [address] [place] [address] 03/11/2024 4:15 PM CDT Therapy Visit [address] [address] Danya Yuo, PA [address] [place] [address] Delicia George, PT [facility] [address] [place] [address] 03/17/2024 10:00 AM CDT Office Visit [facility] [address] [place] [phone] Denise Woodson Ra, HOUSE CALLS NURSE DRESS CUTTER [address] [place] [address] 03/17/2024 1:30 PM CDT Therapy Visit [address] [phone] Danya You, PA [address] 8[address] Isabel Beaulieu, OTR [address] [address] 03/17/2024 2:30 PM CDT Therapy Visit [address] [phone] [place] 5020 [facility] [address] 586864 Charis Chacon, J[facility]AN [facility] [address] [place] [address] 03/17/2024 4:00 PM CDT Therapy Visit [facility] [address] [place] [address] Danya You, PA [address] [place] [address] Vanessa Duggan, PT 03/23/2024 10:30 AM CDT Office Visit [facility] [address] [place] [address] Denise Woodson Ra, HOUSE CALLS NURSE DRESS CUTTER [address] [place], [place] [address] 03/26/2024 1:30 PM CDT Therapy Visit [address] [address] Danya You, PA [address] [place], [place] [address] Isabel Beaulieu, OTR [address] [address] 03/26/2024 2:30 PM CDT Therapy Visit [address] [phone] Danya You, PA [address] [place] [address] Charis Chacon SLP [facility] [address] [place] [address] 03/26/2024 3:30 PM CDT Therapy Visit [facility] [address] [place] [address] Danya You, AMAIRANI 2450 [facility] [address] [address] Delicia George, PT [address] [address] 04/02/2024 2:15 PM CDT Therapy Visit [facility] [address] [place] [address] Danya You, PA [address] [address] Isabel Beaulieu OTR [address] [address] 04/02/2024 3:15 PM CDT Therapy Visit [address] [phone] Danya You, PA [facility] [address] [address] Charis Chacon, JUAN [facility] [address] [place] [address] 04/02/2024 4:15 PM CDT Therapy Visit [address] [phone] Danya You, PA [address] [address] Delicia George, PT [address] [place] [address] 04/09/2024 3:15 PM CDT Therapy Visit [address] [address] Danya You, PA [address] [place] [address] Charis Chacon, [facility] [address] [place] [address] 04/09/2024 4:15 PM CDT Therapy Visit [address] [address] Danya You, PA [address] [place] [address] Delicia George, PT [address] [address] 04/15/2024 9:30 AM CDT Therapy Visit [address] [address] Danya You PA [address] [place] [address] Danya Restrepo SLP 04/23/2024 2:30 PM CDT Therapy Visit [address] [phone] Danya You PA [address] [place] [address] Charis Chacon, JUAN [facility] [address] [place] [address] 05/05/2024 2:30 PM CDT Office Visit [facility] [address], [address] [place] [phone] Rohit Barcenas MD 420 [facility] 295 [place], [place] [address] 06/23/2024 11:00 AM CDT Virtual Visit [facility] 6401 [place] [address] Kristin Vázquez, [facility] 6341 [place] [address] 06/30/2024 2:00 PM CDT Virtual Visit [facility] 6401 [place] [address] Kristin Vázquez, [facility] 6341 [place] [address] documented as of this encounter Visit Diagnoses Not on filedocumented in this encounter Care Teams Qa Architect Relationship Specialty Start Date End Date Timmy Perez MD PCP - Obstetrics/Gynecology 03/02/08 08/07/15 Yung Madrigal MD RETIRED PCP - Orthopaedics Orthopedics 08/26/12 01/20/24 Frw, None PCP - General Family Practice 08/26/12 05/03/13 Winston Villatoro OD [facility] [place] [facility] [address] [place] [address] PCP - Ophthalmology Ophthalmology 02/11/13 Apple Sykes MD [facility] [place] [facility] [address] [place] [address] PCP - General Family Practice 05/04/13 10/25/16 Westley Bates MD XXX RETIRED XXX 701 [facility] [address] [place] [address] PCP - ENT Otolaryngology 05/14/13 07/28/18 Georgina-Alessandra Gómez APRN DRESS CUTTER 3305 [facility] [place] [address] PCP - General Nurse Practitioner 10/26/16 02/06/17 Clara Cornell MD 3305 [facility] [place] [address] PCP - General Internal Medicine 02/07/17 09/20/20 Clara Cornell MD [address] [place] [address] PCP - Assigned PCP 01/17/17 11/18/18 Denise Woodson Ra, APRN DRESS CUTTER [address] [address] [place] [address] PCP - General Family Practice 09/21/20 Clara Cornell MD [address] [place] [address] Assigned PCP 01/17/17 07/16/20 Denise Woodson Ra, APRN DRESS CUTTER [address] [address] [place] [address] Assigned PCP 07/17/20 Usha Simon APRN DRESS CUTTER [address] [place] [address] Nurse Practitioner Neurological Surgery 01/24/24 Dangelo Salinas MD [address] [place] [address] Neurology 01/27/24 Usha Simon APRN DRESS CUTTER [address] [address] Assigned Neuroscience Provider 02/06/24 Anastasia Stearns, RN Lead Art Model 02/06/24 Germaine Lopez, CHW Community Health Worker Primary Care - CC 02/18/24 documented as of this encounter
--- OUTSIDE RECORDS SUMMARY | 2024-02-22 15:27 | XMS_ITS | Encounter Summary ---
Author Organization [place] Address [address] [place] [address] Care Team Providers Care Fashion Patternmaker Name Role Phone Timmy Perez MD Unavailable Unavailable Yung Madrigal MD Unavailable Unavailable Frw, None Primary Care Provider Unavailabl e Winston Villatoro OD Unavailable [phone] Apple Sykes MD Primary Care Provider [phone] Westley Bates MD Unavailable [phone] GeorginaAlessandra Gómez APRN DECKER OPERATOR Primary Car e Provider Serum, Clara Garland MD Primary Care Provider Serum, Clara Garland MD Unavailable [phone] Serum, Clara Garland MD Unavailable [phone] Denise Woodson Ra, APRN DECKER OPERATOR Unavailable + [phone] Denise Woodson Ra, APRN DECKER OPERATOR Primary Care Provid er Usha Simon APRN DECKER OPERATOR Unavailable + [phone] Dangelo Salinas MD Unavailable Usha Simon APRN DECKER OPERATOR Unavailable + [phone] Anastasia Stearns RN Unavailable [phone] Germaine Lopez CHW Unavailable [phone] Encounter Details Date Type Department Care Team (Late st Contact Info) Description 01/31/2006 [facility] in [place] BODY DESIGNER [address] [place] [address] Timmy Perez MD Social History Tobacco Use [...] PM CDT Appointment [facility] [address] [place] [address] Denise Woodson Ra, SUPERVISOR COMPOUNDING AND FINISHING DECKER OPERATOR [address] [place] [address] 02/26/2024 2:15 PM CDT Therapy Visit [address] [phone] Danya You, AMAIRANI [address] [place], [place] [address] Charis Chacon SLP [facility] [address] [place] [address] 02/26/2024 3:00 PM CDT Therapy Visit [address] [phone] Danya You PA [address] [place], [place] [address] Isabel Beaulieu OTR [address] [address] 02/27/2024 4:45 PM CDT [facility] 150 [place] [address] Danya You, PA [address] [place] [address] Vanessa Duggan, PT 03/05/2024 1:30 PM CDT Therapy Visit [address] [phone] Danya You, PA [address] [address] Isabel Beaulieu, OTR [address] [address] 03/05/2024 3:15 PM CDT Therapy Visit [address] [phone] Danya You, PA [address] [address] Charis Chacon, [facility] [address] [place] [address] 03/05/2024 4:15 PM CDT Therapy Visit [address] [phone] Danya You, PA [address] [address] Delicia George, PT [facility] [address] [address] 03/11/2024 2:15 PM CDT Therapy Visit [facility] 150 [place] [address] Danya You PA [address] [address] Isabel Beaulieu, OTR [address] [address] 03/11/2024 3:00 PM CDT Therapy Visit [address] [phone] Danya You, AMAIRANI 2450 [facility] [address] [address] Charis Chacon, [facility] [address] [place] [address] 03/11/2024 4:15 PM CDT Therapy Visit [address] [phone] Danya You, AMAIRANI [address] [place] [address] Delicia George, PT [facility] [address] [address] 03/17/2024 10:00 AM CDT Office Visit [facility] [address] [place] [address] Denise Woodson Ra, SUPERVISOR COMPOUNDING AND FINISHING [facility] [address] [place], [place] [address] 03/17/2024 1:30 PM CDT Therapy Visit [facility] 150 [place] [address] Danya You PA [facility] [address] [address] Isabel Beaulieu, OTR [facility] 150 [place] [address] 03/17/2024 2:30 PM CDT Therapy Visit [address] [phone] Danya You, AMAIRANI [place] [address] [address] Charis Chacon, [facility] [address] [place] [address] 03/17/2024 4:00 PM CDT Therapy Visit [address] [phone] Danya You, AMAIRANI [address] [place] [address] Vanessa Duggan, PT 03/23/2024 10:30 AM CDT Office Visit [facility] [address] [place] [address] Denise Woodson Ra, SUPERVISOR COMPOUNDING AND FINISHING [facility] [address] [place], [place] [address] 03/26/2024 1:30 PM CDT Therapy Visit [address] [phone] Danya You PA [address] [place] [address], [place] [address] Isabel Beaulieu, OTR [facility] 150 [place] [address] 03/26/2024 2:30 PM CDT Therapy Visit [facility] 150 [place] [address] Danya You, PA [address] [address] Charis Chacon, [facility] [address] [place] [address] 03/26/2024 3:30 PM CDT Therapy Visit [address] [phone] Danya You, PA [address] [address] Delicia George, PT [facility] [address] [place] [address] 04/02/2024 2:15 PM CDT Therapy Visit [facility] 150 [place] [address] Danya You, PA [address] [place] [address] Isabel Beaulieu, OTR [facility] 150 [place] [address] 04/02/2024 3:15 PM CDT Therapy Visit [facility] 150 [place] [address] Danya You PA [address] [address] Charis Chacon, JUAN [facility] [address] [place] [address] 04/02/2024 4:15 PM CDT Therapy Visit [address] [phone] Danya You, PA [address] [address] Delicia George, PT [address] [address] 04/09/2024 3:15 PM CDT Therapy Visit [address] [phone] Danya You, PA [address] [address] Charis Chacon, JUAN [facility] [address] [place] [address] 04/09/2024 4:15 PM CDT Therapy Visit [address] [phone] Danya You PA [facility] [address] [address] Delicia George, PT [address] [address] 04/15/2024 9:30 AM CDT Therapy Visit [facility] 150 [place] [address] Danya You, PA 2450 [facility] 213 [place] [address] Danya Restrepo, AWNING ASSEMBLER 04/23/2024 2:30 PM CDT Therapy Visit M [address] [phone] Danya You, PA 2450 [facility] 213 [place] [address] Charis Chacon, JUAN [facility] [address] [place] [address] 05/05/2024 2:30 PM CDT Office Visit [facility] Epilepsy [facility] [address], [address] [place] [address] Rohit Barcenas MD [address] [place] [address] [address] [place] [address] 06/23/2024 11:00 AM CDT Virtual Visit [facility] Mental Health & Addiction [facility] [address] [place] [address] Kristin Vázquez, [facility] 6341 [place] [address] 06/30/2024 2:00 PM CDT Virtual Visit [facility] Mental [facility] Addiction [facility] [address]01 [place] [address] Kristin Vázquez, [facility] [address] [facility] [place] [address] documented as of this encounter Visit Diagnoses Not on filedocumented in this encounter Care Teams Fashion Patternmaker Relationship Specialty Start Date End Date Timmy Perez MD PCP - Obstetrics/Gynecology 03/02/08 08/07/15 Yung Madrigal MD RETIRED PCP - Orthopaedics Orthopedics 08/26/12 01/20/24 Frw, None PCP - General Family Practice 08/26/12 05/03/13 Winston Villatoro, OD [facility] [place] [address] [place] [address] PCP - Ophthalmology Ophthalmology 02/11/13 Apple Sykes MD [facility] [place] [address] [place] [address] PCP - General Family Practice 05/04/13 10/25/16 Westley Bates MD XXX RETIRED XXX [address] [place] [address] PCP - ENT Otolaryngology 05/14/13 07/28/18 Alessandra Cabrales APRN DECKER OPERATOR [facility]5 [facility] [place] [id number] PCP - General Nurse Practitioner 10/26/16 02/06/17 Clara Cornell MD [address] [facility] [place] [address] PCP - General Internal Medicine 02/07/17 09/20/20 Clara Cornell MD [address] [place] [address] PCP - Assigned PCP 01/17/17 11/18/18 Denise Woodson Ra, APRN DECKER OPERATOR [address] [place] [address] PCP - General Family Practice 09/21/20 Clara Cornell MD [address] [place] [address] Assigned PCP 01/17/17 07/16/20 Denise Woodson Ra, APRN DECKER OPERATOR [address] [place] [address] Assigned PCP 07/17/20 Usha Simon APRN DECKER OPERATOR [address] 2440[address] Nurse Practitioner Neurological Surgery 01/24/24 Dangelo Salinas MD [address] [place] [address] Neurology 01/27/24 Usha Simon APRN DECKER OPERATOR [address] [address] Assigned Neuroscience Provider 02/06/24 Anastasia Stearns, RN Lead Ceramist 02/06/24 Germaine Lopez, CHW Community Health Worker Primary Care - CC 02/18/24 documented as of this encounter
--- OUTSIDE RECORDS SUMMARY | 2024-02-22 15:27 | XMS_ITS ---
Author Organization [place] Address [address] [place] [address] Care Team Providers Care Purchasing Coordinator Name Role Phone Winston Villatoro OD Unavailable [phone] Denise Woodson Ra, APRN BLACKJACK DEALER Unavailable + [phone] Denise Woodson Ra, APRN BLACKJACK DEALER Primary Care Provid er Usha Simon APRN BLACKJACK DEALER Unavailable + [phone] Dangelo Salinas MD Unavailable Usha Simon APRN BLACKJACK DEALER Unavailable + [phone] Anastasia Stearns RN Unavailable [phone] Germaine Lopez CHW Unavailable Primary Care Care Coordination Status:Enrolled (Active) Start date:02/06/2024 Enrollment date:02/07/2024 Case Team Name Relationship Phone Anastasia Stearns, RN Lead Avid Editor(Respo nsible Staff) [phone] Germaine Lopez, CHW Critical access hospital [phone] Continued Care and Services Coordination
--- OUTSIDE RECORDS SUMMARY | 2024-02-22 15:27 | XMS_ITS | Encounter Summary ---
Author Organization [place] Address [address] [place] [address]. [place] [address] Care Team Providers Care Professional Engineer Name Role Phone Timmy Perez MD Unavailable Unavailable Encounter Details Date Type Department Care Team (Late st Contact Info) Description 01/17/2012 3:20 PM CDT [facility] [address] [place] [phone] Luis Walsh [address] [place] [address] Interface, Access Representative, Social History Tobacco Use Types Packs/Day Years [...] [facility] [address] [place] [address] [place] [address] Denise Woodson Ra, DIRECTOR MBA [employer] [address] [place] [address] 02/26/2024 2:15 PM CDT Therapy Visit [facility] [address] [address] Danya You PA [address] [place] [address] Charis Chacon, [facility] [address] [place] [address] 02/26/2024 3:00 PM CDT Therapy Visit [facility] [address] [place] [address] Danya You, PA [address] [place] [address] Isabel Beaulieu, [facility]TR [facility] [address] [place] [address] 02/27/2024 4:45 PM CDT Therapy Visit [facility] [address] [place] [address] Danya You, PA [address] [id number] Vanessa Duggan, PT 03/05/2024 1:30 PM CDT Therapy Visit [facility] [address] [place] [phone] Danya You, AMAIRANI [address] [place] [address] Isabel Beaulieu, OTR [facility] [address] [place] [address] 03/05/2024 3:15 PM CDT Therapy Visit [facility] [address] [place] [address] Danya You PA [address] [place] [address] Charis Chacon SLP [facility] [address] [place] [address] 03/05/2024 4:15 PM CDT Therapy Visit [facility] [address] [place] [phone] Danya You, PA [address] [place] [phone] Delicia George, PT [address] [address] 03/11/2024 2:15 PM CDT Therapy Visit [facility] [address] [place] [address] Danya You, PA [address] [address] Isabel Beaulieu, OTR [facility] [address] [place] [address] 03/11/2024 3:00 PM CDT Therapy Visit [facility] [address] [place] [phone] Danya You, PA [address] [place] [address] Charis Chacon, [facility] [address] [place] [address] 03/11/2024 4:15 PM CDT Therapy Visit [facility] [address] [place] [address] Danya You PA [address] [place] [address] Delicia George, PT [facility] [address] [place] [address] 03/17/2024 10:00 AM CDT Office Visit [facility] [address] [place] [address] Denise Woodson Ra, DIRECTOR MBA [facility] [address] [place], [place] [phone] 03/17/2024 1:30 PM CDT Therapy Visit [address] [phone] Danya You PA [address] [place] [address] Isabel Beaulieu, OTJah [address] [address] 03/17/2024 2:30 PM CDT Therapy Visit [address] [phone] Danya You, PA [address] [place] [address] Charis Chacon SLP [facility] [address] [place] [address] 03/17/2024 4:00 PM CDT Therapy Visit [facility] [address] [place] [phone] Danya You, PA [address] [address] Vanessa Duggan, PT 03/23/2024 10:30 AM CDT Office Visit [facility] [address] [place] [phone] Denise Woodson Ra, DIRECTOR [employer] [address] [place], [place] [phone] 03/26/2024 1:30 PM CDT Therapy Visit [address] [phone] Danya You, AMAIRANI [address] [address] Isabel Beaulieu, OTJah [address] [address] 03/26/2024 2:30 PM CDT Therapy Visit [address] [phone] Danya You, PA [address] [place] [address] Charis Chacon, [facility] [address] [place] [address] 03/26/2024 3:30 PM CDT Therapy Visit [address] [phone] Danya You, PA [address] [facility] [address] [place] [address] Delicia George, PT [address] [address] 04/02/2024 2:15 PM CDT Therapy Visit [address] [phone] Danya You, PA [address] [address] Isabel Beaulieu, OTR [address] [address] 04/02/2024 3:15 PM CDT Therapy Visit [address] [phone] Danya You, PA [address] [address] Charis Chacon, [facility] [address] [place] [address] 04/02/2024 4:15 PM CDT Therapy Visit [address] [phone] Danya You, PA [address] [facility] [address] [place] [address] Delicia George, PT [address] [address] 04/09/2024 3:15 PM CDT Therapy Visit [address] [address] Danya You PA [address] [place] [address] Charis Chacon, [facility] [address] [place] [address] 04/09/2024 4:15 PM CDT Therapy Visit [address] [address] Danya You PA [address] [place] [address] Delicia George, PT [facility] [address] [address] 04/15/2024 9:30 AM CDT Therapy Visit [address] [address] Danya You PA [address] [place] [address] Danya Restrepo SLP 04/23/2024 2:30 PM CDT Therapy Visit [address] [phone] Danya You PA [facility] [address] [place] [address] Charis Chacon, [facility] [address] [place] [address] 05/05/2024 2:30 PM CDT Office Visit [facility] [address], [address] [place] [phone] Rohit Barcenas MD 420 [facility] [address] [place] [address] 06/23/2024 11:00 AM CDT Virtual Visit M [facility] [address] [place] [address] Kristin Vázquez, [facility] [address] [place] [address] 06/30/2024 2:00 PM CDT Virtual Visit M [facility] [address] [place] [address] Kristin Vázquez, [facility] [address] [place] [address] documented as of this encounter Visit Diagnoses Not on filedocumented in this encounter Care Teams Professional Engineer Relationship Specialty Start Date End Date Timmy Perez MD PCP - Obstetrics/Gynecology 03/02/0807/18 documented as of this encounter
== END 2024-02-22 16:05 | disposition home or self-care (01) ==
PROVIDERS: Emergency Provider Family Medicine; PCP Family Medicine
DX: M79.605 Pain in left leg (principal)
CPT/HCPCS: 93971; 99284

== ENCOUNTER 2024-05-07 17:39 | Observation (INO) | payer OTHER, SELFPAY ==
[2024-05-07] VITALS (23 sets, daily range): BP systolic 124–169; BP diastolic 63–113; PULSE 60–116; RESP 18; TEMP 36.4–36.8; O2SAT 96–99; BMI 32.7; BMI 32.6
--- NOTE | 2024-05-07 17:53 | ED_ITS ---
HPI - General Adult General Time Seen by Provider: 17:53 Date Seen: 05/07/24 Chief complaint: Headache/Migraine Stated complaint: headache, R face tingling Time Seen by Provider: 05/07/24 17:41 Source: patient, family and RN notes reviewed Mode of arrival: ambulatory Limitations: no limitations History of Present Illness HPI narrative: This 48-year-old female is coming in with a headache at the top of her head, associated with right facial numbness tingling, right arm numbness tingling. She feels like her gait is maybe a little off, needs to walk carefully. She notes no motor weakness in her extremities. 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 She had her cerebral angiogram at [facility] with Dr. Gutierrez on 01/09/2024. She had right-sided symptoms postprocedure but did not want to stay in the hospital, opted for an outpatient MRI, the MRI did show multiple acute ischemic infarcts in the frontal lobes, parietal lobes and left supra marginal gyrus. I did see her on January 12 after she received this report. She was also found to have an incidental finding of fibromuscular dysplasia and a non occlusive dissection. Her neuro interventional physician recommended her Aspirin be increased from 81 mg to 325 mg. She was hospitalized here on January 12, on the morning of January 13 did have a seizure, she was loaded with Keppra. She has no chest symptoms, no palpitations. She has not been sick with anything, no cough or cold symptoms, no fevers. Nursing staff noted that she seemed to be tentative with her gait, moving slowly, they felt she was a bit unsure of her gait but there was no true ataxia. Given her history, her triage nurse did appropriately proceed with a stroke code. I.e. did remember this patient, did order a head CT and CTA imaging of her head and neck. Related Data Home Medications ?Medication ?Instructions ?Recorded ?Confirmed fluticasone furoate 200 1 inh inhalation DAILY 07/03/22 05/07/24 mcg-vilanterol 25 mcg/dose inhalation powder (Breo Ellipta) albuterol sulfate 90 mcg/actuation 2 puff inhalation Q6H PRN 08/01/22 05/07/24 aerosol inhaler magnesium 250 mg tablet 250 mg PO HS 08/02/22 05/07/24 trazodone 100 mg tablet 100 mg PO HS sleep 08/02/22 05/07/24 cetirizine 10 mg tablet (Zyrtec) 10 mg PO DAILY 10/08/23 05/07/24 aspirin 325 mg tablet,delayed 325 mg PO DAILY 02/22/24 05/07/24 release hydroxyzine HCl 25 mg tablet 25 mg PO 3XD PRN anxiety 05/07/24 05/07/24 lorazepam 1 mg tablet 0.5 - 1 mg PO DAILY PRN dizziness 05/07/24 05/07/24 oxcarbazepine 150 mg tablet 150 mg PO QPM 05/07/24 05/07/24 Previous Rx's ?Medication ?Instructions ?Recorded ketorolac 10 mg tablet 10 mg PO Q6H PRN pain 5 days #20 07/03/22 tabs Allergies Allergy/AdvReac Type Severity Reaction Status Date / Time bupropion Allergy Intermediate Diarrhea Verified 05/07/24 18:21 codeine Allergy Intermediate epigastric Verified 05/07/24 18:21 pain erythromycin base Allergy Intermediate stomach Verified 05/07/24 18:21 upset, diarrhea Review of Systems Status of ROS: Reports: 6 or more systems reviewed and unremarkable except as noted in History and below [facility] Medical History 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, unspecified (ICD-10) Mild persistent asthma (09/27/22) ?J45.30 - Mild persistent asthma, uncomplicated (ICD-10) Headache ?R51.9 - Headache, unspecified (ICD-10) Asthma ?J45.909 - Unspecified asthma, uncomplicated (ICD-10) History of blood transfusion (1994) ?Z92.89 - Personal history of other medical treatment (ICD-10) History of vitamin D deficiency ?Z86.39 - Personal history of other endocrine, nutritional and metabolic disease (ICD-10) Anxiety and depression ?F41.9 - Anxiety disorder, unspecified (ICD-10) ?F32.A - Depression, unspecified (ICD-10) Fibromyalgia ?M79.7 - Fibromyalgia (ICD-10) Mild persistent asthma ?J45.30 - Mild persistent asthma, uncomplicated (ICD-10) H/O bronchopulmonary dysplasia ?Z87.09 - Personal history of other diseases of the respiratory system (ICD- 10) Stage 1 chronic kidney disease (11/16/20) ?N18.1 - Chronic kidney disease, stage 1 (ICD-10) Simple renal cyst (10/2020) ?N28.1 - Cyst of kidney, acquired (ICD-10) Asthma ?J45.909 - Unspecified asthma, uncomplicated (ICD-10) Surgical History History of laparoscopy ?Z98.890 - Other specified postprocedural states (ICD-10) S/P dilation and curettage (1994) ?Z98.890 - Other specified postprocedural states (ICD-10) H/O tubal ligation ?Z98.51 - Tubal ligation status (ICD-10) Status post excision of lipoma (2011) ?Z98.890 - Other specified postprocedural states (ICD-10) ?Z86.018 - Personal history of other benign neoplasm (ICD-10) History of medial meniscus repair of left knee (08/04/13) ?Z98.890 - Other specified postprocedural states (ICD-10) History of laparoscopic cholecystectomy (09/29/20) ?Z90.49 - Acquired absence of other specified parts of digestive tract (ICD- 10) History of hysterectomy for benign disease (2005) ?Z90.710 - Acquired absence of both cervix and uterus (ICD-10) History of catheter-based closure of atrial septal defect (06/2006) ?Z87.74 - Personal history of (corrected) congenital malformations of heart and circulatory system (ICD-10) Family History Maternal Grandmother Stroke Paternal Grandfather Diabetes Daughter Depression Social History Narrative: She recently moved to [place]. 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 She has a college education She exercises 5 days a week with walking in treadmill 2M She does not smoke She does not drink alcohol or use recreational drugs What is your current living situation?: I presently have a place to live Problems where you live: no known problems Problems where you live details: na In the past 12 months, utilities in danger of being shut off: no In past 12 months, lack of transportation kept you from medical appts, meetings, work, or getting things needed for daily living: no In the past 12 mos, have been you worried that your food would run out before you had money to buy more?: never true In the past 12 mos, the food you bought just didn't last and you didn't have money to buy more?: never true Highest level of school completed/degree received: Associate degree: occupational, technical, vocational program Smoking Status: Never smoker Do you use any of these nicotine containing products: None Second hand tobacco smoke exposure: No How often do you have a drink containing alcohol: never How often do you have six or more drinks on one occasion: Never AUDIT-C Alcohol total score: 0 Non-prescribed substance use: denies use Caffeine: Yes How often does anyone, including family, friends and others, physically hurt you : never How often does anyone, including family, friends and others, insult or talk down to you: never How often does anyone, including family, friends and others, threaten you with harm: never How often does anyone, including family, friends and others, scream or curse at you: never Little interest or pleasure in doing things: not at all Feeling down, depressed, or hopeless: not at all Are you using contraception or practicing any form of control: Yes (hysterectomy) service: No Exam Const: Vital Signs, click to edit/add: Vital Signs - 24 hr 05/07/24 17:45 Temperature 97.8 F Pulse Rate [Pulse Oximeter] 97 Respiratory Rate 18 Blood Pressure [Ri ght Upper Arm] 169/84 H Pulse Oximetry 97 Oxygen Delivery Me thod Room Air Patient was seen on arrival after nursing staff identified concerns. Patient is alert, interactive, no apparent distress. Conjugate gaze, extraocular muscles intact, no nystagmus, sclera clear, pupils are equal and round. Symmetrical facial function, speech is normal. She perceives different sensation on her right face verses left but can feel in her right face. Denies any double vision in note no dysconjugate gaze. Lungs are clear good air entry, CV regular rate and rhythm, no murmur. Strength is 5/5 and symmetric in her upper and lower extremities when sitting in a wheelchair in on the bed. Normal rapid alternating finger movements, no arm drift. I see no tremors, no ataxic movements of her extremities. She has normal sensation on her left side, can feel on the right hand and forearm but states it feels a little different than the left. No changes in sensation on grows touch of her lower extremities. Documenting provider has reviewed patient's vital signs: yes Course Course ED Course: Patient will have emergent head CT and CTA imaging of her head neck. Once that is done, she will come back over to the ER and be monitored on pulse oximetry and cardiac monitoring, obtain EKG to ensure sinus rhythm. Will have full complement of labs done. Expect to speak to Stroke Neurology as well. Reevaluation(s) Time of Reevaluation #1: 19:13 Reevaluation #1: Reviewed with hospitalist Myriam BALES. she accepts patient. Will update the patient on the plan. Patient and I did review hospitalization with plan for brain MRI in the morning. She has been getting her care through [facility] system, was transferred to stroke rehab from our facility to [place]. She understands that we will be utilizing the stroke Neurology through [facility] for this acute care. She is on an 81 mg aspirin daily. Consultations Consultation #1: Did speak to Dr. Molina on-call for Stroke Neurology at [place]. She was the same provider that I worked with in December of last year. She agrees with doing the CT and the CTA is. Other possibility is seizure. She does want to rule out a large vessel occlusion. She does agree that this patient should be kept overnight for an MRI tomorrow, does recommend that be with and without contrast. Time: 18:00 Vital Signs Vital signs: Initial Vital Signs Temperature 97.8 F 05/07/24 17:45 Temperature Source Temporal Artery Scan 05/07/24 17:45 Pulse Rate 97 05/07/24 17:45 Respiratory Rate 18 05/07/24 17:45 Blood Pressure 169/84 H 05/07/24 17:45 Blood Pressure Mean 112 H 05/07/24 17:45 Blood Pressure Position Sitting 05/07/24 17:45 Pulse Oximetry 97 05/07/24 17:45 Oxygen Delivery Method Room Air 05/07/24 17:45 Vital Signs Temperature 97.8 F 05/07/24 17:45 Pulse Rate 97 05/07/24 17:45 Respiratory Rate 18 05/07/24 17:45 Blood Pressure 169/84 H 05/07/24 17:45 Pulse Oximetry 97 05/07/24 17:45 Oxygen Delivery Method Room Air 05/07/24 17:45 Temperature 97.8 F 05/07/24 17:45 Pulse Rate 97 05/07/24 17:45 Respiratory Rate 18 05/07/24 17:45 Blood Pressure 169/84 H 05/07/24 17:45 Pulse Oximetry 97 05/07/24 17:45 Oxygen Delivery Method Room Air 05/07/24 17:45 Medical Decision Making Lab Data Lab results reviewed: Yes I reviewed the patient's lab results Labs: Lab Results 05/07/24 05/07/24 Range/Units 18:08 18:20 WBC 6.82 (4.50-11.00) K/uL RBC 4.70 (4.00-5.20) m/uL Hgb 14.1 (12.0-16.0) gm/dL Hct 43.0 (33.0-51.0) % MCV 92 (80-100) fL MCH 30 (26-34) pg MCHC 33 (32-36) gm/dL RDW Coeff of Bárbara 11.7 (11.5-15.5) % Plt Count 180 (140-440) K/uL Neut % (Auto) 51.7 (42.0-72.0) % Lymph % (Auto) 32.0 (20-44) % [place]well % (Auto) 6.9 (0.0-11.0) % Eos % (Auto) 8.9 H (0.0-7.0) % Baso % (Auto) 0.4 (0.0-3.0) % Neut # (Auto) 3.52 (1.7-7.0) K/uL Lymph # (Auto) 2.18 (0.90-2.90) K/uL Barnwell # (Auto) 0.50 (0.00-0.90) K/UL Eos # (Auto) 0.60 H (0.00-0.50) K/uL Baso # (Auto) 0.03 (0.00-0.30) K/uL Abs Immat Gran (auto) 0.01 (0.00-0.30) K/uL Imm/Tot Granulo (auto) 0.1 % Urine Color Yellow (Yellow) Urine Appearance Clear (Clear) Urine pH 7.0 (5.0-8.5) Ur Specific Strum 1.015 (1.000-1.030) Urine Protein Negative (Negative) Urine Glucose (UA) Negative (Negative) Urine Ketones Negative (Negative) Urine Blood Trace-lysed A (Negative) Urine Nitrite Negative (Negative) Urine Bilirubin Negative (Negative) Urine Urobilinogen 0.2 (0.2-1.0) Ur Leukocyte Esterase Negative (Negative) Urine RBC 0-2 (0-2) Urine WBC 0-2 (0-5) Ur Squamous Epith Cells None (None-Few) Urine Bacteria Few A (None) Imaging Data CT- Other: Attestation: I have reviewed the pertinent imaging results. Radiologist's impression: Patient: CHRISTOPHER TY Facility:?[facility] Patient ID:?[id number] Site Patient ID:?[id number]. Site :?[id number] Study:?CT-Head Angio CODE STROKE-05/07/2024 6:19:59 PM Ordering Physician:?Florencio Rico Preliminary Report: PRELIMINARY IMPRESSIONS: 1. The [place] of [place] is unremarkable with no significant stenosis, occlusion, or aneurysm identified. 2. The neck vessels shows no evidence of dissection, significant stenosis in the common or internal carotid arteries, vertebral arteries, or visualized great vessels of the chest. Read by:?Yann Harris MD @05/07/2024 6:31:[address] scan - head: Attestation: I have reviewed the pertinent imaging results. Radiologist's impression: Patient: CHRISTOPHER TY Facility:?[facility] Patient ID:?[id number] Site Patient ID:?[id number]. Site :?[id number] Study:?CT-Head CODE STROKE-05/07/2024 6:09:39 PM Ordering Physician:?Florencio Rico Final Report: INDICATION: Headache, right facial and arm tingling TECHNIQUE: CT Head without i.v. contrast. Coronal and sagittal reformats were obtained. COMPARISON: None FINDINGS: CSF space: The ventricles are normal for age. Brain: No evidence of mass, acute infarction or hemorrhage is seen. No mass- effect or midline shift is seen. The brain parenchyma is otherwise normal in appearance with preservation of the pollack-white matter junction. Calvarium: The visualized paranasal sinuses are well aerated. The mastoid air cells are clear. The visualized orbits are grossly unremarkable. The calvarium is unremarkable in appearance with no fractures identified. IMPRESSION: 1. No evidence of acute infarction, intracranial hemorrhage, or mass-effect seen. Please note that all CT scans at this facility use dose modulation, iterative reconstruction, and/or weight-based dosing when appropriate to reduce radiation dose to as low as reasonably achievable. Dictated by: Yann Harris MD @ 05/07/2024 18:23:18 (Electronic Signature) ECG Data Attestation: I personally reviewed and interpreted this ECG as follows: (Sinus rhythm, PVC seen. Rate 67 beats per minute. No ischemic change, no infarct.) Prior ECG tracings: available for review Discharge Plan Discharge Clinical Impression: Numbness and tingling of right face, Numbness and tingling of right arm, History of cerebrovascular disease Patient Disposition: Admitted As Observation
--- NOTE | 2024-05-07 17:53 | CRLHL7_ITS ---
For Patients: As a result of the Century Cures Act, medical imaging exams and procedure reports are released immediately into your electronic medical record. You may view this report before your referring provider. If you have questions, please contact your health care provider. CLINICAL HISTORY: Right facial tingling. TECHNIQUE: Standard helical CT image acquisition through the neck was performed after intravenous contrast bolus enhancement. 3D and MIP reconstructions were performed at a separate workstation and permanently archived. COMPARISON: None available. FINDINGS: The origins of the great vessels from the aortic arch are patent. The common carotid arteries are patent. No significant luminal stenoses of the proximal ICAs by NASCET criteria. The more distal cervical segments of the ICAs are patent. The origins and cervical segments of the vertebral arteries are patent. IMPRESSION: Patent cervical arterial vasculature without hemodynamically significant luminal stenosis. Please note that all CT scans at this facility use dose modulation, iterative reconstruction, and/or weight-based dosing when appropriate to reduce radiation dose to as low as reasonably achievable. Dictated by Len Randolph MD @ 05/08/2024 9:29:17 AM (Electronically Signed)
--- NOTE | 2024-05-07 17:53 | CRLHL7_ITS ---
For Patients: As a result of the Century Cures Act, medical imaging exams and procedure reports are released immediately into your electronic medical record. You may view this report before your referring provider. If you have questions, please contact your health care provider. CLINICAL HISTORY: Right facial tingling. TECHNIQUE: Standard helical CT image acquisition through the head following the administration of intravenous contrast was performed. 3D and MIP reconstructions were performed at a separate workstation and permanently archived. COMPARISON: None available. FINDINGS: No intracranial proximal large vessel occlusion or flow-limiting luminal stenosis. No evidence of cerebral aneurysm. No findings to suggest an arterial-venous shunting lesion. The major dural venous sinuses and deep venous system are patent. IMPRESSION: No intracranial proximal large vessel occlusion, flow-limiting luminal stenosis, or cerebral aneurysm. Please note that all CT scans at this facility use dose modulation, iterative reconstruction, and/or weight-based dosing when appropriate to reduce radiation dose to as low as reasonably achievable. Dictated by Len Randolph MD @ 05/08/2024 9:33:00 AM (Electronically Signed)
--- NOTE | 2024-05-07 17:53 | CRLHL7_ITS ---
For Patients: As a result of the Century Cures Act, medical imaging exams and procedure reports are released immediately into your electronic medical record. You may view this report before your referring provider. If you have questions, please contact your health care provider. INDICATION: Headache, right facial and arm tingling TECHNIQUE: CT Head without i.v. contrast. Coronal and sagittal reformats were obtained. COMPARISON: None FINDINGS: CSF space: The ventricles are normal for age. Brain: No evidence of mass, acute infarction or hemorrhage is seen. No mass-effect or midline shift is seen. The brain parenchyma is otherwise normal in appearance with preservation of the pollack-white matter junction. Calvarium: The visualized paranasal sinuses are well aerated. The mastoid air cells are clear. The visualized orbits are grossly unremarkable. The calvarium is unremarkable in appearance with no fractures identified. IMPRESSION: 1. No evidence of acute infarction, intracranial hemorrhage, or mass-effect seen. Please note that all CT scans at this facility use dose modulation, iterative reconstruction, and/or weight-based dosing when appropriate to reduce radiation dose to as low as reasonably achievable. Dictated by: Yann Harris MD @ 05/07/2024 18:23:18 (Electronically Signed)
--- OUTSIDE RECORDS SUMMARY | 2024-05-07 18:42 | XMS_ITS | Clinical Summary ---
Author Organization [facility] Address [address] [place] [address] Care Team Providers Care Resident Manager Name Role Phone Winston Villatroo OD Unavailable [phone] Denise Woodson Ra, APRN BOILER TENDERS SUPERVISOR Unavailable [phone] Denise Woodson Ra, APRN BOILER TENDERS SUPERVISOR Primary Care Provid er Usha Simon APRN BOILER TENDERS SUPERVISOR Unavailable [phone] Dangelo Salinas MD Unavailable Anastasia Stearns RN Unavailable [phone] Germaine Lopez CHW Unavailable [phone] Robin Zepeda MD Unavailable [phone] Allergies Active Allergy Reactions Criticality Noted Date Comments Bupropion GI Disturbance,Other (See Comments) Low 01/19/2011 Diarrhea and stomach ache Codeine GI Disturbance High 09/23/2022 Other Reaction(s): epigastric pain Erythromycin GI Disturbance Low 12/27/2005 Mold Dizziness,GI Disturbance 08/22/2012 Medications Medication Sig Dispensed Refills Start Date End Date Status albuterol (PROAIR HFA/PROVENTIL HFA/VENTOLIN HFA) 108 (90 Base) MCG/ACT inhalerIndications: Moderate persistent asthma without complication Inhale 2 puffs into the lungs every 4 hours as needed for shortness of breath / dyspnea or wheezing 1 Inhaler 3 07/13/2020 Active traZODone (DESYREL) 50 MG tabletIndications:I nsomnia, unspecified type Take 2 tablets (100 mg) by mouth At Bedtime 180 tablet 3 07/27/2021 Active BREO ELLIPTA 200-25 MCG/INH InhalerIndications: Moderate persistent asthma without complication INHALE 1 PUFF INTO THE LUNGS DAILY 3 each 1 02/22/2022 Active cetirizine (ZYRTEC) 10 MG tablet Take 10 mg by mouth daily Active psyllium (METAMUCIL) 28.3 % packet Take 1 packet by mouth daily Active Lidocaine (LIDOCARE) 4 % PatchIndications:Fi bromyalgia,Pain of right upper extremity Place 1 patch onto the skin every 24 hours To prevent lidocaine toxicity, patient should be patch free for 12 hrs daily. 01/22/2024 Active senna-docusate (SENOKOT-S/PERICOLA CE) 8.6-50 MG tabletIndications:O ther constipation Take 2 tablets by mouth 2 times daily as needed for constipation 01/22/2024 Active Additional Information Patient not taking.Reported on 02/06/2024 methyl salicylate-menthol (ICY HOT) ointmentIndications :Fibromyalgia,Pain of right upper extremity Apply topically every 6 hours as needed (pain) 01/22/2024 Active acetaminophen (TYLENOL) 500 MG tabletIndications:F ibromyalgia,Pain of right upper extremity Take 1-2 tablets (500-1,000 mg) by mouth 3 times daily as needed for mild pain or headaches 01/24/2024 Active magnesium oxide 200 MG TABS Ok to take magnesium supplement of your preference 01/24/2024 Active meclizine (ANTIVERT) 25 MG tablet Take 1 tablet (25 mg) by mouth 3 times daily as needed for dizziness 20 tablet 02/13/2024 Active Additional Information Patient not taking.Reported on 05/05/2024 aspirin (ASA) 325 MG EC tabletIndications:C erebrovascular accident (CVA), unspecified mechanism (H) Take 1 tablet (325 mg) by mouth daily 30 tablet 02/14/2024 Active Additional Information Patient taking differently: 162 mgOral DAILY, Reported on 05/01/2024 rosuvastatin (CRESTOR) 20 MG tabletIndications:C erebrovascular accident (CVA), unspecified mechanism (H) TAKE 1 TABLET (20 MG) BY MOUTH AT BEDTIME 90 tablet 03/06/2024 Active Additional Information Patient not taking.Reported on 05/01/2024 LORazepam (ATIVAN) 1 MG tabletIndications:H istory of seizure Take 1/2-1 tablet daily as needed for onset of dizziness. 10 tablet 03/17/2024 Active levETIRAcetam (KEPPRA) 750 MG tabletIndications:H istory of seizure TAKE 1 TABLET BY MOUTH TWICE A DAY 56 tablet 04/01/2024 Active Additional Information Patient taking differently: 325 mgOral 2 TIMES DAILY, Reported on 05/01/2024 vitamin B complex with vitamin C (VITAMIN B COMPLEX) tablet Take 1 tablet by mouth daily Active OXcarbazepine (TRILEPTAL) 150 MG tabletIndications:P artial epilepsy with impairment of consciousness (H) Take 1 tablet (150 mg) by mouth at bedtime 30 tablet 5 05/05/2024 Active Hospital, Clinic, or Other Facility Administered Medication Ordered Dose Route Frequency Start Date End Date Status sodium chloride (PF) 0.9% PF flush 3 mLIndications:Flank pain,Abdominal pain, epigastric 3 mL IV EVERY 1 MIN PRN 02/28/2024 Active Active Problems Problem Noted Date Diagnosed [...] Encounters Date Type Department Care Team Description 05/06/2024 MyC Medical Advice [facility] [address], [address] [place] [phone] Rohit Barcenas MD 05/05/2024 2:30 PM CDT Office Visit [facility] [address], [address] [place] [phone] Rohit Barcenas MD 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 on cerbral angio Rt ICA dissection [facility]20[facility] subsequent head and neck CTA negtaive (Primary Dx); Hyperlipidemia LDL goal <70; ASD (atrial septal defect) amplatzer septal occluder- serial #[id number] ( 06/2006); Cerebrovascular accident (CVA), unspecified mechanism (H) 12/2023 ? 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[place] [address] 05/01/2024 Travel 04/30/2024 Travel 04/30/2024 [facility] [address] [place] [address] Denise Woodson Ra, APRN BOILER TENDERS SUPERVISOR Medication Refill 04/28/2024 Travel 04/27/2024 Telephone [facility] [address] [place] [address] Denise Woodson Ra, APRN BOILER TENDERS SUPERVISOR Medication Refill 04/15/2024 9:30 AM CDT Therapy Visit [facility] [address] [address] Danya You PA Morgan, Lindsay M, INFORMATION OFFICER Cognitive communication deficit (Primary Dx); Cerebrovascular accident (CVA), unspecified mechanism (H) 04/15/2024 8:45 AM CDT Therapy Visit [address] [address] Denise Woodson Ra, CORE SHAPER SIDES BOILER TENDERS SUPERVISOR sIabel Beaulieu, OTR Cerebrovascular accident (CVA), unspecified mechanism (H) (Primary Dx) 04/15/2024 Travel 04/14/2024 9:30 AM CDT Virtual Visit [facility] [address] [place] [address] Raul Hoyos MD History of CVA (cerebrovascular accident) (Primary Dx); Fibromuscular dysplasia (H24) 04/14/2024 Travel 04/14/2024 Telephone [facility] [place] [address] Narda Cardona [address] [place] [phone] Nurse, [facility] Referral (Pt referred to [facility] by Dr. Raul Hoyos for fibromuscular dysplasia.) 04/13/2024 12:00 PM CDT Virtual Visit [address] [address] Denise Woodson Ra, APRN CNP Cerebrovascular accident (CVA), unspecified mechanism (H) (Primary Dx) 04/08/[address] [address] Denise Woodson Ra, APRN CNP 04/06/2024 MyC Medical Advice [facility] 04/02/2024 4:15 PM CDT Therapy Visit [address] [address] Danya You, Delicia Higgins, PT Cerebrovascular accident (CVA), unspecified mechanism (H) (Primary Dx) 04/02/2024 3:15 PM CDT Therapy Visit [address] [phone] Danya You PA Raasch, Sharon, INFORMATION OFFICER Cognitive communication deficit (Primary Dx); Cerebrovascular accident (CVA), unspecified mechanism (H) 04/02/2024 2:15 PM CDT Therapy Visit [address] [phone] Danya You, Isabel Payan, OTR Cerebrovascular accident (CVA), unspecified mechanism (H) (Primary Dx) 04/02/2024 Travel 04/02/2024 Telephone [facility] [address] [place] [phone] Raul Hoyos MD Clinic Care Coordination - Follow-up 04/02/2024 MyC Medical Advice [facility] Neurology [address] [phone] Liliane Cobos 04/01/2024 Travel 03/31/[address] [address] Denise Woodson Ra, CORE SHAPER SIDES BOILER TENDERS SUPERVISOR Medication Refill 03/26/2024 3:30 PM CDT Therapy Visit [address] [phone] Danya You, Delicia Higgins, PT Cerebrovascular accident (CVA), unspecified mechanism (H) (Primary Dx) 03/26/2024 2:30 PM CDT Therapy Visit [address] [phone] Danya You PA Raasch, Sharon, INFORMATION OFFICER Cognitive communication deficit (Primary Dx); Cerebrovascular accident (CVA), unspecified mechanism (H) 03/26/2024 1:30 PM CDT Therapy Visit [address] [address] Danya You PA Peterson, Megan A, OTR Cerebrovascular accident (CVA), unspecified mechanism (H) (Primary Dx) 03/26/2024 Travel 03/18/2024 1:21 PM CDT - 03/18/2024 11:59 PM CDT Hospital Encounter [facility] [address] [place] [phone] Denise Woodson Ra, APRN CNP Fibromuscular dysplasia (H24) Discharge Disposition: Home or Self Care 03/18/2024 Travel 03/17/2024 4:00 PM CDT Therapy Visit [address] [phone] Danya You PA Katzmark, Erin, PT Cerebrovascular accident (CVA), unspecified mechanism (H) (Primary Dx) 03/17/2024 2:30 PM CDT Therapy Visit [address] [phone] Danya You, Charis Thomas, INFORMATION OFFICER Cognitive communication deficit (Primary Dx); Cerebrovascular accident (CVA), unspecified mechanism (H) 03/17/2024 1:30 PM CDT Therapy Visit [address] [phone] Danya You, Isabel Payan, OTR Cerebrovascular accident (CVA), unspecified mechanism (H) (Primary Dx) 03/17/2024 10:00 AM CDT Office Visit [address] [phone] Denise Woodson Ra, CORE SHAPER SIDES BOILER TENDERS SUPERVISOR History of seizure (Primary Dx); Cerebrovascular accident (CVA), unspecified mechanism (H) 03/16/2024 Travel 03/16/2024 Telephone [facility] Neurology [address] [address] Raul Hoyos MD Appointment (Follow up ) 03/16/2024 MyC Medical Advice [facility] [address] [address] Ora Bazan E 03/11/2024 4:15 PM CDT Therapy Visit [address] [phone] Danya You, Delicia Higgins, PT Cerebrovascular accident (CVA), unspecified mechanism (H) (Primary Dx) 03/11/2024 3:00 PM CDT Therapy Visit [address] [phone] Danya You PA Raasch, Sharon, JUAN Cognitive communication deficit (Primary Dx); Cerebrovascular accident (CVA), unspecified mechanism (H) 03/11/2024 2:15 PM CDT Therapy Visit [address] [phone] Danya You PA Peterson, Megan A, OTR Cerebrovascular accident (CVA), unspecified mechanism (H) (Primary Dx) 03/11/2024 Travel 03/09/2024 Telephone [facility]rology [address] [address] Raul Hoyos MD Call Back (Follow up appointment ) 03/05/2024 4:15 PM CDT Therapy Visit [address] [phone] KenyattaDanya PA Hoyt, Kelly, PT Cerebrovascular accident (CVA), unspecified mechanism (H) (Primary Dx) 03/05/2024 3:15 PM CDT Therapy Visit [address] [address] Danya You PA Raasch, Sharon, INFORMATION OFFICER Cerebrovascular accident (CVA), unspecified mechanism (H) (Primary Dx); Cognitive communication deficit 03/05/2024 1:30 PM CDT Therapy Visit [address] [phone] Danya You PA Peterson, Megan A, OTR Cerebrovascular accident (CVA), unspecified mechanism (H) (Primary Dx) 03/05/2024 Travel 03/04/2024 Travel 03/03/2024 11:14 AM CDT - 03/03/2024 2:19 PM CDT Emergency [facility] [address] [place] [address] Brayan Reich MD Right flank pain; Right sided abdominal pain Discharge Disposition: Home or Self Care 03/03/[address] [phone] Denise Woodson Ra, APRN BOILER TENDERS SUPERVISOR Medication Refill 03/03/2024 Travel 03/02/2024 Orders Only [address] [place] [address] Liliane Mcnair PA-C Hematuria, unspecified type (Primary Dx) 02/28/2024 10:46 AM CDT - 02/28/2024 11:59 PM CDT Hospital Encounter [facility] [address] [place] [address] Janna Jo APRN CNP Flank pain; Abdominal pain, epigastric Discharge Disposition: Home or Self Care 02/28/2024 10:00 AM CDT Office Visit [facility] [address] [facility] [address] [place] [phone] Janna Jo APRN CNP Flank pain; Abdominal pain, epigastric; TSH elevation 02/27/2024 3:00 PM CDT Office Visit [facility] [address] [facility] [address] [place] [address] Liliane Mcnair, HAYDEN Flank pain (Primary Dx); Abdominal pain, epigastric; Cerebrovascular accident (CVA), unspecified mechanism (H) 02/27/2024 Travel 02/27/2024 MyC Medical Advice [address] [phone] Denise Woodson Ra, APRN CNP 02/24/2024 Travel 02/19/2024 3:00 PM CDT Therapy Visit [address] [phone] Danya You PA Peterson, Megan A, OTR Cerebrovascular accident (CVA), unspecified mechanism (H) (Primary Dx) 02/19/2024 Travel 02/17/2024 2:45 PM CDT Therapy Visit [address] [phone] Danya You PA Choo, Sara J, INFORMATION OFFICER Cerebrovascular accident (CVA), unspecified mechanism (H) (Primary Dx); Cognitive communication deficit 02/17/2024 Travel 02/15/2024 Travel 02/14/2024 2:45 PM CDT Therapy Visit [address] [phone] Danya You PA Mussehl, Samantha J, PT Cerebrovascular accident (CVA), unspecified mechanism (H) (Primary Dx) 02/14/2024 2:00 PM CDT Therapy Visit [facility] [address] [place] [phone] Danya You, Charis Thomas, JUAN Cerebrovascular accident (CVA), unspecified mechanism (H) (Primary Dx) 02/14/2024 12:45 PM CDT Therapy Visit [address] [phone] Danya You PA Peterson, Megan A, OTR Cerebrovascular accident (CVA), unspecified mechanism (H) (Primary Dx) 02/14/[address] [phone] Denise Woodson Ra, CORE SHAPER SIDES BOILER TENDERS SUPERVISOR 02/14/2024 MyC Medical Advice [address] [phone] Denise Woodson Ra, CORE SHAPER SIDES BOILER TENDERS SUPERVISOR Medication Request; Forms 02/14/2024 Travel 02/13/2024 12:11 PM CDT - 02/13/2024 3:28 PM CDT Emergency [facility] Emergency Dept [address] [place] [address] Dangelo Sylvester DO Dizziness Discharge Disposition: Home or Self Care 02/13/2024 Travel 02/12/2024 3:40 PM CDT Virtual Visit [facility] Neurosurgery [address] [phone] Robin Zepeda MD Dural arteriovenous fistula (Primary Dx) 02/12/2024 Telephone [facility] Neurosurgery [address] [phone] Robin Zepeda MD 02/07/2024 2:00 PM CDT Therapy Visit [address] [phone] Danya You PA Raasch, Sharon, INFORMATION OFFICER Cerebrovascular accident (CVA), unspecified mechanism (H) (Primary Dx) 02/06/2024 8:30 AM CDT Office Visit [facility] [id number] [place] [phone] Denise Woodson Ra, APRN CNP Fibromuscular dysplasia (H24) (Primary Dx); Cerebrovascular accident (CVA), unspecified mechanism (H); TSH elevation 02/06/2024 Telephone [facility] [address] [phone] Meche De La Cruz, GEMA Appointment (Follow-up 02/04/24 PHQ9) 02/06/2024 MyC Medical Advice [facility] [address] [place] [address] Denise Woodson Ra, APRN CNP H/O prolonged Q-T interval on ECG (Primary Dx) 02/06/2024 Travel 02/05/2024 Telephone [facility] [address] [phone] Robin Zepeda MD 02/05/2024 Travel from Last 3 Months Immunizations Name Administration Dates Next Due COVID-19 Vaccine (Jose Antonio) 11/20/2020 Flu, Unspecified 07/11/2017,07/02/2014 HepB 03/03/2012,11/07/2011,10/04/2011 Hepatitis B, Adult 03/03/2012,11/07/2011, 012 Influenza (IIV3) PF 06/01/2013,07/04/2007 Influenza Vaccine >6 months,quad, PF ,06/23/2021,07/27/2020,2018,08/07/2017,07/11/2017,06/16/2013,1 ,07/17/2006,10/17/2005 Influenza Vaccine IM Ages 6- 35 Months 4 Valent (PF) 07/17/2006 Influenza, seasonal, injectable, PF 06/01/2013,0 06/04/2012 Mantoux Tuberculin Skin Test 11/07/2011, 11/07/2011,10/08/2011,2011 Pneumococcal 23 valent 03/16/2004 TD,PF 7+ (Tenivac) 04/05/2003 TDAP (Adacel,Boostrix) 01/04/2021,01/26/2011 Td (Adult), Adsorbed 04/05/2003,02/14/2003 Tdap (Adult) Unspecified Formulation 02/14/2003 Family History Medical History Relation Comments Autoimmune [...] = 0.6 oz pur e alcohol) minimal Social Connection and Isolation Panel [NHANES] A nswer Date Recorded In a typical week, how many times do you talk on the phone with family, friends, or neighbors? Once a week 02/28/2024 How often do you get together with friends or re latives? Never 02/28/2024 How often do you attend yazidism or mandaeism serv ices? Never 02/28/2024 Do you belong to any clubs o r organizations such as yazidism groups, unions, fraternal or athletic groups, or school groups? No 02/28/2024 How often do you attend meet ings of the clubs or organizations you belong to? Never 02/28/2024 Are you , , di vorced, , never , or living with a partner? 02/28/2024 AUDIT-C Answer Date Recorded Q1: How often do you have a drink containing alcohol? Never 02/28/2024 Q2: How many drinks containi ng alcohol do you have on a typical day when you are drinking? Patient does not drink Q3: How often do you have si x or more drinks on one occasion? Never 02/28/2024 PHQ-2 Answer Date Recorded PHQ-2 Score 2 05/05/2024 [facility] - Occupational Stress Questionnaire Answer Date Recorded Do you feel stress - tense, restless, nervous, or anxious, or unable to sleep at night because your mind is troubled all the time - these days? To some extent 02/28/2024 Exercise Vital Sign Answer Date Recorde d On average, how many days pe r week do you engage in moderate to strenuous exercise (like a brisk walk)? 1 day 02/28/2024 On average, how many minutes do you engage in exercise at this level? 10 min 02/28/2024 Adolescent Education Answer Date Record ed Getting School Help Needed Not on file 07/01 Food Insecurity Answer Date Recorded Within the past 12 months, d id you worry that your food would run out before you got money to buy more? No 02/28/2024 Within the past 12 months, d id the food you bought just not last and you didn? t have money to get more? No 02/28/2024 Housing Stability Answer Date Recorded Do you have housing? (Sarain g is defined as stable permanent housing and does not include staying ouside in a car, in a tent, in an abandoned building, in an overnight alf, or couch-surfing.) Yes 02/28/2024 Are you worried about losing your housing? No 02/28/2024 Financial Resource Strain Answer Date R ecorded Within the past 12 months, h ave you or your family members you live with been unable to get utilities (heat, electricity) when it was really needed? No 02/28/2024 Transportation Needs Answer Date Record ed Within the past 12 months, h as lack of transportation kept you from medical appointments, getting your medicines, non-medical meetings or appointments, work, or from getting things that you need? Yes 02/28/2024 Interpersonal Safety Answer Date Record ed Do [...] Sign Reading Time Taken Comments Blood Pressure 125/80 05/05/2024 2:32 PM CDT Pulse 58 05/05/2024 2:32 PM CDT Temperature 36.5 ??C (97.7 ??F) 05/05/2024 2:32 PM CD T Respiratory Rate 10 03/17/2024 9:46 AM CDT Oxygen Saturation 98% 05/05/2024 2:32 PM CDT Inhaled Oxygen Concentration - - Weight 97.7 kg (215 lb 6.4 oz) 05/05/2024 2:32 P M CDT Height 174 cm (5' 8.5) 05/05/2024 2:32 PM CDT Body Mass Index 32.28 05/05/2024 2:32 PM CDT Plan of Treatment Upcoming Encounters Date Type Department Care Team (Late st Contact Info) Description 06/08/2024 8:30 AM CDT Office Visit [facility] [address] [place] [address] Denise Woodson Ra, CORE SHAPER SIDES BOILER TENDERS SUPERVISOR [address] [place] [address] Health Maintenance Due Date Last [...] 07/27/2021, 07/27/2020, Additional history exists INFLUENZA VACCINE (#1) 2024 , 06/23/2021, 07/27/2020, Additional history exists ASTHMA CONTROL TEST 09/17/2024 03/17/2024, 02/06/2024, 01/22/2022, Additional history exists PHQ-9 09/17/2024 03/17/2024, 01/15, 02/06/2024, Additional history exists ANNUAL REVIEW OF HM ORDERS 02/05/2025 02/06/2024, MAMMO SCREENING 07/30/2025 07/30/2023, 07/17, 04/25/2022, Additional history exists COLORECTAL CANCER SCREENING 10/28/2025 sDNA (Cologuard) 10/28/2025 10/28/2022 GLUCOSE 03/03/2027 03/03/2024, 02/14, 02/27/2024, Additional history exists DTAP/TDAP/TD IMMUNIZATION (7 - Td or Tdap) 01/04/2031 01/04/2021, 01/26/2011, [...] admissions Care Plan Increased risk of re-admission 10%( 3:13 PM CDT) No Anastasia Stearns, RN Note: Barriers: diagnosis of multiple, chronic, complex medical conditions, provider availability - wait time to complete appointments, etc. Strengths: motivated, engaged in care coordination Patient expressed understanding of goal: yes Action steps to achieve this goal: 1. I will follow up with my providers as scheduled/recommended - Mental Health weekly - PT, OT and INFORMATION OFFICER - PCP appointment 03/17/24 - Neurology 05/05/24, trying to get in sooner to manage Keppra medication - Needs to schedule stroke follow up? 2. I will take my medications as prescribed. 3. I will discuss, review, schedule and complete recommended overdue health maintenance with my Primary Care Provider. 4. I will contact my care team with questions, concerns, support needs. I will use the clinic as a resource and I understand I can contact my clinic with 08/04 after hours services available. Validation Leader will remain available as needed. Procedures Procedure Name Priority Date/Time Associated Diagnosis Comments CTA CHEST ABDOMEN PELVIS W CONTRAST Routine 03/18/2024 2:08 PM CDT Fibromuscular dysplasia (H24) CT ABDOMEN PELVIS W CONTRAST STAT 03/03/2024 12:29 PM CDT CBC WITH PLATELETS & DIFFERENTIAL STAT 03/03/2024 11:49 AM CDT CBC WITH PLATELETS AND DIFFERENTIAL STAT 03/03/2024 11:49 AM CDT TROPONIN T, HIGH SENSITIVITY STAT 03/03/2024 11:49 AM CDT COMPREHENSIVE METABOLIC PANEL STAT 03/03/2024 11:49 AM CDT EKG 12-LEAD, TRACING ONLY STAT 03/03/2024 11:41 AM CDT EKG 12-LEAD, TRACING ONLY STAT 03/03/2024 11:41 AM CDT HCG QUALITATIVE URINE STAT 03/03/2024 10:27 AM CDT ROUTINE UA WITH MICROSCOPIC REFLEX TO CULTURE STAT 03/03/2024 10:[address] ABDOMEN PELVIS W CONTRAST STAT 02/28/2024 10:59 AM CDT Flank pain Abdominal pain, epigastric CBC WITH PLATELETS & DIFFERENTIAL STAT 02/28/2024 10:38 AM CDT Flank pain Abdominal pain, epigastric CBC WITH PLATELETS AND DIFFERENTIAL STAT 02/28/2024 10:38 AM CDT Flank pain Abdominal pain, epigastric ERYTHROCYTE SEDIMENTATION RATE AUTO STAT 02/28/2024 10:38 AM CDT Flank pain Abdominal pain, epigastric CRP INFLAMMATION STAT 02/28/2024 10:3 8 AM CDT Flank pain Abdominal pain, epigastric COMPREHENSIVE METABOLIC PANEL STAT 02/28/2024 10:38 AM CDT Flank pain Abdominal pain, epigastric TSH WITH FREE T4 REFLEX Routine 02/28/20 10:27 AM CDT Flank pain COMPREHENSIVE METABOLIC PANEL Routine 02/27/2024 5:27 PM CDT Abdominal pain, epigastric LIPASE Routine 02/27/2024 5:27 PM CDT Abdominal pain, epigastric CBC WITH PLATELETS & DIFFERENTIAL Routine 02/27/2024 5:26 PM CDT Abdominal pain, epigastric CBC WITH PLATELETS AND DIFFERENTIAL Routine 02/27/2024 5:26 PM CDT Abdominal pain, epigastric UA MICROSCOPIC WITH REFLEX TO CULTURE Routine 02/27/2024 3:42 PM CDT Flank pain UA MACROSCOPIC WITH REFLEX TO MICRO AND CULTURE Routine 02/27/2024 3:42 PM CDT Flank pain MR BRAIN W/O CONTRAST STAT 02/13/2024 2:50 [...] METABOLIC PANEL STAT 02/13/2024 12:16 PM CDT MA SCREENING BILATERAL W/ MAT Routine 04/25/2022 5:03 PM CDT Visit for screening mammogram LIPID REFLEX TO DIRECT LDL PANEL Routine 07/27/2021 8:57 AM SLACKLINE OPERATOR CARDIOVASCULAR SCREENING; LDL GOAL LESS THAN 160 ASTHMA ACTION PLAN Routine 01/04/2021 9: 09 AM CDT from Last 3 Months or Most Recently Relevant to Health Maintenance Results * CTA Chest Abdomen Pelvis w Contrast (03/18/2024 2:08 PM CDT) Anatomical Region Laterality Modality Lower Extremity, SUBRAD IR P ROCEDURE, UMP CT CTA, RAD CT Computed Tomography Impressions 03/18/2024 3:12 PM CDT IMPRESSION: No definite features of FMD identified. SINGH WORLEY MD Narrative 03/18/2024 3:12 PM CDT CTA CHEST, ABDOMEN & PELVIS WITH CONTRAST March 18, 2024 2:08 PM HISTORY: Fibromuscular dysplasia (H24). TECHNIQUE: CT angiogram of the chest, abdomen, and pelvis was performed following the administration of 72mL Isovue-370. Images are viewed in multiple planes and 3-D reconstructions were also performed. Radiation dose for this scan was reduced using automated exposure control, adjustment of the mA and/or kV according to patient size, or iterative reconstruction technique. COMPARISON: CT of the abdomen and pelvis dated 03/03/2024. FINDINGS: Vascular exam: Thoracic aorta: The thoracic aorta is of normal caliber. The great vessels arising from the thoracic aortic arch are patent without significant stenoses. Abdominal aorta: The abdominal aorta is of normal caliber. The celiac trunk, superior mesenteric artery, inferior mesenteric artery, and renal arteries are patent without significant stenoses. Iliac arteries: The iliac arteries and proximal femoral arteries are patent without significant stenoses. No definite features of FMD are identified in the sampled arteries of the chest, abdomen and pelvis. Soft tissue exam: There are postsurgical changes consistent with ASD closure. There are diffuse emphysematous changes within the lungs. The patient is status post a cholecystectomy. The solid organs in the abdomen are unremarkable. There are a few scattered colonic diverticuli. No evidence for acute diverticulitis. The bowel is grossly unremarkable. There is pectus excavatum. Procedure Note Singh Worley MD - 03/18/2024 CTA CHEST, ABDOMEN & PELVIS WITH CONTRAST March 18, 2024 2:08 PM HISTORY: Fibromuscular dysplasia (H24). TECHNIQUE: CT angiogram of the chest, abdomen, and pelvis was performed following the administration of 72mL Isovue-370. Images are viewed in multiple planes and 3-D reconstructions were also performed. Radiation dose for this scan was reduced using automated exposure control, adjustment of the mA and/or kV according to patient size, or iterative reconstruction technique. COMPARISON: CT of the abdomen and pelvis dated 03/03/2024. FINDINGS: Vascular exam: Thoracic aorta: The thoracic aorta is of normal caliber. The great vessels arising from the thoracic aortic arch are patent without significant stenoses. Abdominal aorta: The abdominal aorta is of normal caliber. The celiac trunk, superior mesenteric artery, inferior mesenteric artery, and renal arteries are patent without significant stenoses. Iliac arteries: The iliac arteries and proximal femoral arteries are patent without significant stenoses. No definite features of FMD are identified in the sampled arteries of the chest, abdomen and pelvis. Soft tissue exam: There are postsurgical changes consistent with ASD closure. There are diffuse emphysematous changes within the lungs. The patient is status post a cholecystectomy. The solid organs in the abdomen are unremarkable. There are a few scattered colonic diverticuli. No evidence for acute diverticulitis. The bowel is grossly unremarkable. There is pectus excavatum. IMPRESSION: No definite features of FMD identified. SINGH WORLEY MD Denise Woodson APRN [employer] TENDERS SUPERVISOR IMG CT ORDER NASRIN * CT Abdomen Pelvis w Contrast (03/03/2024 12:29 PM CDT) Only the most recent of2 resultswithin the time period is included. Anatomical Region Laterality Modality Abdomen/Pelvis, SUBRAD CT ALEJANDRA DY, UMP CT ABDOMEN PELVIS, RAD CT Computed Tomography Impressions 03/03/2024 2:18 PM CDT IMPRESSION: No acute abnormality in the abdomen or pelvis. No cause for abdominal pain is identified. PETRONA HARRIS MD SYSTEM ID: [id number] Narrative 03/03/2024 2:[address] ABDOMEN AND PELVIS WITH CONTRAST 03/03/2024 12:29 PM CLINICAL HISTORY: Right-sided abdominal and epigastric pain. TECHNIQUE: CT scan of the abdomen and pelvis was performed following injection of IV contrast. Multiplanar reformats were obtained. Dose reduction techniques were used. CONTRAST: 100mL Isovue-370 COMPARISON: CT of the abdomen and pelvis 03/03/2024. FINDINGS: LOWER CHEST: Small hiatal hernia. HEPATOBILIARY: No hepatic masses. Cholecystectomy. PANCREAS: Normal. SPLEEN: Normal. ADRENAL GLANDS: Normal. KIDNEYS/BLADDER: Small right renal cyst would require no specific follow-up. No hydronephrosis. BOWEL: No bowel obstruction. Scattered sigmoid diverticulosis. No evidence for colitis or diverticulitis. Unremarkable appendix. LYMPH NODES: No lymphadenopathy. VASCULATURE: Unremarkable. PELVIC ORGANS: Hysterectomy. No free fluid in the pelvis. ADDITIONAL FINDINGS: A 0.7 cm nonspecific subcutaneous nodule overlying the lower abdomen left of midline (series 3 image 154) is unchanged. MUSCULOSKELETAL: Unchanged hemangioma in the T11 vertebral body. Procedure Note Petrona Harris MD - 03/03/2024 CT ABDOMEN AND PELVIS WITH CONTRAST 03/03/2024 12:29 PM CLINICAL HISTORY: Right-sided abdominal and epigastric pain. TECHNIQUE: CT scan of the abdomen and pelvis was performed following injection of IV contrast. Multiplanar reformats were obtained. Dose reduction techniques were used. CONTRAST: 100mL Isovue-370 COMPARISON: CT of the abdomen and pelvis 03/03/2024. FINDINGS: LOWER CHEST: Small hiatal hernia. HEPATOBILIARY: No hepatic masses. Cholecystectomy. PANCREAS: Normal. SPLEEN: Normal. ADRENAL GLANDS: Normal. KIDNEYS/BLADDER: Small right renal cyst would require no specific follow-up. No hydronephrosis. BOWEL: No bowel obstruction. Scattered sigmoid diverticulosis. No evidence for colitis or diverticulitis. Unremarkable appendix. LYMPH NODES: No lymphadenopathy. VASCULATURE: Unremarkable. PELVIC ORGANS: Hysterectomy. No free fluid in the pelvis. ADDITIONAL FINDINGS: A 0.7 cm nonspecific subcutaneous nodule overlying the lower abdomen left of midline (series 3 image 154) is unchanged. MUSCULOSKELETAL: Unchanged hemangioma in the T11 vertebral body. IMPRESSION: No acute abnormality in the abdomen or pelvis. No cause for abdominal pain is identified. PETRONA HARRIS MD SYSTEM ID: [id number] Brayan Reich MD IM CT ORDERABLES * CBC with platelets and differential (03/03/2024 11:49 AM CDT) Only the most recent of4 resultswithin the time period is included. WBC Count 7.6 4.0 - 11.0 10e3/uL 03/03/2024 11:55 AM CDT [facility] RBC Count 4.84 3.80 - 5.20 10e6/uL 03/03/2024 11:55 AM CDT [facility] Hemoglobin 14.9 11.7 - 15.7 g/dL 03/03/2024 11:55 AM CDT [facility] Hematocrit 44.0 35.0 - 47.0 % 03/03/2024 11:55 AM CDT [facility] MCV 91 78 - 100 fL 03/03/2024 11:55 AM CDT [facility] MCH 30.8 26.5 - 33.0 pg 03/03/2024 11:55 AM CDT [facility] MCHC 33.9 31.5 - 36.5 g/dL 03/03/2024 11:55 AM CDT [facility] RDW 12.2 10.0 - 15.0 % 03/03/2024 11:55 AM CDT [facility] Platelet Count 168 150 - 450 10e3/uL 03/03/2024 11:55 AM CDT [facility] % Neutrophils 62 % 03/03/2024 11:55 AM CDT [facility] % Lymphocytes 25 % 03/03/2024 11:55 AM CDT [facility] % Monocytes 6 % 03/03/2024 11:55 AM CDT [facility] % Eosinophils 6 % 03/03/2024 11:55 AM CDT [facility] % Basophils 1 % 03/03/2024 11:55 AM CDT [facility] % Immature Granulocytes 0 % 03/03/2024 11:55 AM CDT [facility] NRBCs per 100 WBC 0 <1 /100 024 11:55 AM CDT [facility] Absolute Neutrophils 4.8 1.6 - 8.3 10e3/uL 03/03/2024 11:55 AM CDT [facility] Absolute Lymphocytes 1.9 0.8 - 5.3 10e3/uL 03/03/2024 11:55 AM CDT [facility] Absolute Monocytes 0.5 0.0 - 1.3 10e3/uL 03/03/2024 11:55 AM CDT [facility] Absolute Eosinophils 0.5 0.0 - 0.7 10e3/uL 03/03/2024 11:55 AM CDT [facility] Absolute Basophils 0.0 0.0 - 0.2 10e3/uL 03/03/2024 11:55 AM CDT [facility] Absolute Immature Granulocytes 0.0 <=0.4 10e3/uL 03/03/2024 11:55 AM CDT [facility] Absolute NRBCs 0.0 10e3/uL 03/03/2024 11:55 AM CDT [facility] Blood BLOOD SPECIMEN / Unknown Venipuncture / Unknown 03/03/2024 11:49 AM CDT 03/03/2024 11:53 AM CDT Brayan Reich MD LAB - BLOOD ORDERABL ES Performing Organization Address [facility] Co de Phone Number [facility] [address] Lab (1st floor, no room number) [place] [phone] * Troponin T, High Sensitivity (03/03/2024 11:49 AM CDT) Only the most recent of2 resultswithin the time period is included. Troponin T, High Sensitivity <6 <=14 ng/L 03/03/2024 1:14 PM CDT LABORATORY Comment: Either a High [...] BLOOD SPECIMEN / Unknown Venipuncture / Unknown 03/03/2024 11:49 AM CDT 03/03/2024 11:53 AM CDT Brayan Reich MD LAB - BLOOD ORDERABL ES Performing Organization Address [facility]/ZIP Co de Phone Number [facility] [address] Lab (1st floor, no room number) [place] [address] * Comprehensive metabolic panel (03/03/2024 11:49 AM CDT) Only the most recent of3 resultswithin the time period is included. Sodium 140 135 - 145 mmol/L 03/03/2024 1:14 PM CDT [facility] Comment:Reference intervals for this test were updated on 06/11/2023 to more accurately reflect our healthy population. There may be differences in the flagging of prior results with similar values performed with this method. Interpretation of those prior results can be made in the context of the updated reference intervals. Potassium 5.0 3.4 - 5.3 mmol/L 03/03/2024 1:14 PM CDT [facility] Carbon Dioxide (CO2) 27 22 - 29 mmol/L 03/03/2024 1:14 PM CDT [facility] Anion Gap 10 7 - 15 mmol/L 03/03/2024 1:14 PM CDT [facility] Urea Nitrogen 11.4 6.0 - 20.0 mg/dL 03/03/2024 1:14 PM CDT [facility] Creatinine 0.81 0.51 - 0.95 mg/dL 03/03/2024 1:14 PM CDT [facility] GFR Estimate 90 >60 mL/min/1. 73m2 03/03/2024 1:14 PM CDT [facility] Comment:eGFR calculated usin 2020 CKD-EPI equation. Calcium 9.8 8.6 - 10.0 mg/dL 03/03/2024 1:14 PM CDT [facility] Chloride 103 98 - 107 mmol/L 03/03/2024 1:14 PM CDT [facility] Glucose 96 70 - 99 mg/dL 03/03/2024 1:14 PM CDT [facility] Alkaline Phosphatase 86 40 - 150 U/L 03/03/2024 1:14 PM CDT [facility] AST 19 0 - 45 U/L 03/03/2024 1:14 PM CDT [facility] Comment:Reference intervals for this test were updated on 02/25/2023 to more accurately reflect our healthy population. There may be differences in the flagging of prior results with similar values performed with this method. Interpretation of those prior results can be made in the context of the updated reference intervals. ALT 13 0 - 50 U/L 03/03/2024 1:14 PM CDT [facility] Comment:Reference intervals for this test were updated on 02/25/2023 to more accurately reflect our healthy population. There may be differences in the flagging of prior results with similar values performed with this method. Interpretation of those prior results can be made in the context of the updated reference intervals. Protein Total 7.9 6.4 - 8.3 g/dL 03/03/2024 1:14 PM CDT [facility] Albumin 4.4 3.5 - 5.2 g/dL 03/03/2024 1:14 PM CDT [facility] Bilirubin Total 1.0 <=1.2 mg/dL 03/03/2024 1:14 PM CDT [facility] Blood BLOOD SPECIMEN / Unknown Venipuncture / Unknown 03/03/2024 11:49 AM CDT 03/03/2024 11:53 AM CDT Brayan Reich MD LAB - BLOOD ORDERABL ES [facility] Lab [address] Lab (1st floor, no room number) [place] [address] * EKG 12-lead, tracing only (03/03/2024 11:41 AM CDT) Only the most recent of2 resultswithin the time period is included. Systolic Blood Pressure mmHg RADIOLOGY RESULTS Diastolic Blood Pressure mmHg RADIOLOGY RESULTS Ventricular Rate 64 BPM RAD IOLOGY RESULTS Atrial Rate 64 BPM RADIOLOG Y RESULTS CT Interval 160 ms RADIOLOG Y RESULTS QRS Duration 92 ms RADIOLO GY RESULTS QT 402 ms RADIOLOGY RESULTS QTc 414 ms RADIOLOGY RESULTS P [place] 53 degrees RADIOLOGY RESULTS R AXIS 69 degrees RADIOLOGY RESULTS T [place] 28 degrees RADIOLOGY RESULTS Interpretation ECG Sinus rhythm Possible Left atrial enlargement Borderline ECG When compared with ECG of 13-FEB-2024 12:51, Premature ventricular complexes are no longer Present RADIOLOGY RESULTS 03/03/2024 11:4 1 AM CDT Dangelo Sylvester DO ECG ORDERABLES RADIOLOGY RESULTS * HCG qualitative urine (03/03/2024 10:27 AM CDT) hCG Urine Qualitative Negative Negative PRATEEK 03/03/2024 12:05 PM CDT [facility] Comment:This test is for scr eening purposes. Results should be interpreted along with the clinical picture. Confirmation testing is available if warranted by ordering [id number], HCG Quantitative . Urine URINE SPECIMEN OBTAINED BY CLEAN CATCH PROCEDURE / Unknown Non-blood Collection / Unknown 03/03/2024 10:27 AM CDT 03/03/2024 10:33 AM CDT Brayan Reich MD LAB - URINE ORDERABL ES LABORATORY [facility] Lab [address] Lab (1st floor, no room number) [place] [address] * (ABNORMAL) UA with Microscopic reflex to Culture (03/03/2024 10:27 AM CDT) Color Urine Straw Colorless, Straw, Light Yellow, Yellow 03/03/2024 10:40 AM CDT LABORATORY Appearance Urine Clear Clear 03/03/20 10:40 AM CDT LABORATORY Glucose Urine Negative Negative mg/dL 03/03/2024 10:40 AM CDT LABORATORY Bilirubin Urine Negative Negative 10:40 AM CDT LABORATORY Ketones Urine Negative Negative mg/dL 03/03/2024 10:40 AM CDT LABORATORY Specific [place] Urine 1.005 1.003 - 1.035 03/03/2024 10:40 AM CDT LABORATORY Blood Urine Trace(A) Negative 03/03/2024 10:40 AM CDT LABORATORY pH Urine 7.5(H) 5.0 - 7.0 03/03/2024 10:40 AM CDT LABORATORY Protein Albumin Urine Negative Negative mg/dL 03/03/2024 10:40 AM CDT LABORATORY Urobilinogen Urine Normal Normal, 2.0 mg/dL 03/03/2024 10:40 AM CDT LABORATORY Nitrite Urine Negative Negative 03/03/2024 10:40 AM CDT LABORATORY Leukocyte Esterase Urine Negative Negative 03/03/2024 10:40 AM CDT LABORATORY Bacteria Urine Few(A) None Seen /HPF 03/03/2024 10:40 AM CDT LABORATORY Mucus Urine Present(A) None Seen /LPF 03/03/2024 10:40 AM CDT LABORATORY RBC Urine 1 <=2 /HPF 03/03/2024 10:40 AM CDT LABORATORY WBC Urine 2 <=5 /HPF 03/03/2024 10:40 AM CDT LABORATORY Squamous Epithelials Urine 10(H) <=1 /HPF 03/03/2024 10:40 AM CDT [facility] Hyaline Casts Urine 1 <=2 /LPF 03/03/2024 10:40 AM CDT LABORATORY Urine URINE SPECIMEN OBTAINED BY CLEAN CATCH PROCEDURE / Unknown Non-blood Collection / Unknown 03/03/2024 10:27 AM CDT 03/03/2024 10:33 AM CDT Narrative [facility] - 03/03/2024 10:40 AM CDT Urine Culture not indicated Brayan Reich MD LAB - URINE ORDERABL ES [facility] Lab [address] [employer] Lab (1st floor, no room number) [address] * Erythrocyte sedimentation rate auto (02/28/2024 10:38 AM CDT) Erythrocyte Sedimentation Rate 20 0 - 20 mm/hr 02/28/2024 11:18 AM CDT LABORATORY Blood VENOUS LINE / Unknown Venipuncture / Unknown 02/28/2024 10:38 AM CDT 02/28/2024 10:47 AM CDT Janna Jo APRN, CNP LAB - BLOOD ORDERABLES [facility] Lab [address] Lab (1st floor, no room number) [address] * (ABNORMAL) CRP inflammation (02/28/2024 10:38 AM CDT) CRP Inflammation 6.29(H) <5.00 mg/L 02/28/2024 11:39 AM CDT LABORATORY Blood VENOUS LINE / Unknown Venipuncture / Unknown 02/28/2024 10:38 AM CDT 02/28/2024 10:47 AM CDT Janna Jo APRN [employer] SUPERVISOR LAB - BLOOD ORDERABLES LABORATORY [facility] [address] Lab (1st floor, no room number) [place] [address] * TSH with free T4 reflex (02/28/2024 10:27 AM CDT) TSH 3.87 0.30 - 4.20 uIU/mL 02/28/2024 11:56 AM CDT LABORATORY Blood ARTERIAL LINE / Unknown Venipuncture / Unknown 02/28/2024 10:27 AM CDT 02/28/2024 11:08 AM CDT Janna Parsonsbrian Jo APRN [facility] LAB - BLOOD ORDERABLES Performing Organization Address City/[facility]/ZIP Co de Phone Number LABORATORY [facility] [address] Lab (1st floor, no room number) [place] [address] * Lipase (02/27/2024 5:27 PM CDT) Pathologist [facility] Lipase 24 13 - 60 U/L 02/28/2024 8:32 PM CDT [facility] Blood BLOOD SPECIMEN / Unknown Venipuncture / Unknown 02/27/2024 5:27 PM CDT 02/27/2024 5:27 PM CDT Liliane Mcnair PA-C LAB - BLOOD ORDER NASRIN [facility]AT[facility] [place] [facility] [address] [facility], [address] [place] [address] * (ABNORMAL) UA Microscopic with Reflex to Culture (02/27/2024 3:42 PM CDT) Bacteria Urine Moderate( A) None Seen /HPF PRATEEK 02/27/2024 4:00 PM CDT [facility] RBC Urine 2-5(A) 0-2 /HPF /HPF PRATEEK 02/27/2024 4:00 PM CDT [facility] WBC Urine 0-5 0-5 /HPF /HPF PRATEEK 02/27/2024 4:00 PM CDT [facility] Squamous Epithelials Urine Moderate( A) None Seen /LPF PRATEEK 02/27/2024 4:00 PM CDT [facility] Urine MID-STREAM URINE SPECIMEN / Unknown Non-blood Collection / Unknown 02/27/2024 3:42 PM CDT 02/27/2024 3:42 PM CDT Narrative [facility] - 02/27/2024 4:00 PM CDT Urine Culture not indicated Liliane Mcnair PA-C LAB - URINE ORDER NASRIN [facility] [place] [facility] [address] [place] [address], [facility] [phone] * (ABNORMAL) UA Macroscopic with reflex to Microscopic and Culture - Clinic Collect (02/27/2024 3:42 PM CDT) Color Urine Yellow Colorless, Straw, Light Yellow, Yellow 02/27/2024 3:52 PM CDT [facility] Appearance Urine Clear Clear 02/27/20 24 3:52 PM CDT [facility] Glucose Urine Negative Negative mg/dL 02/27/2024 3:52 PM CDT [facility] Bilirubin Urine Negative Negative 3:52 PM CDT [facility] Ketones Urine Negative Negative mg/dL 02/27/2024 3:52 PM CDT [facility] Specific [place] Urine 1.025 1.003 - 1.035 02/27/2024 3:52 PM CDT [facility] Blood Urine Moderate(A) Negative 02/27/2024 3:52 PM CDT [facility] pH Urine 7.0 5.0 - 7.0 02/27/2024 3:52 PM CDT [facility] Protein Albumin Urine 30(A) Negative mg/dL 02/27/2024 3:52 PM CDT [facility] Urobilinogen Urine 0.2 0.2, 1.0 E.U./dL 02/27/2024 3:52 PM CDT [facility] Nitrite Urine Negative Negative 02/27/2024 3:52 PM CDT [facility] Leukocyte Esterase Urine Negative Negative 02/27/2024 3:52 PM CDT [facility] Urine MID-STREAM URINE SPECIMEN / Unknown Non-blood Collection / Unknown 02/27/2024 3:42 PM CDT 02/27/2024 3:42 PM CDT Liliane Mcnair PA-C LAB - URINE ORDER NASRIN [facility]AT[facility] [place] [facility] [address] [place] [address], [facility] [phone] * MR Brain w/o Contrast (02/13/2024 2:50 [...] a DVA. FRAN ROBBINS MD SYSTEM ID: ??[id number] Narrative 02/13/2024 3:14 PM CDT MR BRAIN [...] a DVA. FRAN ROBBINS MD SYSTEM ID: [id number] Dangelo Sylvester DO IMG MRI ORDERABL ES * CTA Head Neck with Contrast (02/13/2024 [...] hours CDT. FRAN ROBBINS MD SYSTEM ID: ??[id number] Narrative 02/13/2024 12:49 PM CDT EXAM: CTA [...] of the upper aortic arch through the capitan grande band of [place]. This CT angiogram data was [...] of the upper aortic arch through the [place] grande band of [place]ros[place]. This CT angiogram data was [...] hours CDT. FRAN ROBBINS MD SYSTEM ID: [id number] Dangelo Sylvester DO IMG CT ORDERABLE S * CT Head w/o Contrast (02/13/2024 12:28 PM CDT) Anatomical Region Laterality Modality Head, SUBRAD CT NEURO, SUBRA D CT NEURO, UMP CT NEURO, RAD CT Computed Tomography Impressions 02/13/2024 12:49 PM CDT IMPRESSION: No acute intracranial pathology. FRAN ROBBINS MD SYSTEM ID: ??[id number] Narrative 02/13/2024 12:49 PM CDT EXAM: CT HEAD W/O CONTRAST ??02/13/2024 12:28 PM HISTORY: ??Code Stroke to evaluate for potential thrombolysis and thrombectomy. PLEASE READ IMMEDIATELY. ?? COMPARISON: ??Brain MRI, Head CT and CTA 02/04/2024 TECHNIQUE: Using multidetector thin collimation helical acquisition technique, axial, coronal and sagittal CT images from the skull base to the vertex were obtained without intravenous contrast. Bill Of Lading Clerk (topogram) image(s) also obtained and reviewed. Dose [...] the vertex were obtained without intravenous contrast. Bill Of Lading Clerk (topogram) image(s) also obtained and reviewed. Dose [...] intracranial pathology. FRAN ROBBINS MD SYSTEM ID: [id number] Dangelo Sylvester DO IMG CT ORDERABLE S * Glucose by meter (02/13/2024 12:18 PM CDT) GLUCOSE BY METER POCT 95 70 - 99 mg/dL 02/13/2024 12:25 PM CDT LABORATORY POC Blood, venous BLOOD SPECIMEN / Unknown 02/13/2024 12:18 PM CDT 02/13/2024 12:25 PM CDT Dangelo Sylvester LAB - BEAKER POC T LABORATORY POC [facility] [address] Lab (1st floor, no room number) [place] [address] * INR (02/13/2024 12:16 PM CDT) INR 0.94 0.85 - 1.15 02/13/2024 12:42 PM CDT [facility] Blood BLOOD SPECIMEN / Unknown Venipuncture / Unknown 02/13/2024 12:16 PM CDT 02/13/2024 12:20 PM CDT Dangelo Sylvester DO LAB - BLOOD ORDE SUDEEP [facility] Lab [address] Lab (1st floor, no room number) [place] [address], [facility] * Partial thromboplastin time (02/13/2024 12:16 PM CDT) aPTT 26 22 - 38 Seconds 02/13/2024 12:42 PM CDT [facility] Blood BLOOD SPECIMEN / Unknown Venipuncture / Unknown 02/13/2024 12:16 PM CDT 02/13/2024 12:20 PM CDT Dangelo Sylvester DO LAB - BLOOD ORDE SUDEEP [facility] Lab [address] Lab (1st floor, no room number) [place] [address], [facility] * hCG Qualitative (02/13/2024 12:16 PM CDT) hCG Serum Qualitative Negative Negative PRATEEK 02/13/2024 12:49 PM CDT [facility] Comment:This test is for scr eening purposes. Results should be interpreted along with the clinical picture. Confirmation testing is available if warranted by ordering [id number], HCG Quantitative . Blood BLOOD SPECIMEN / Unknown Venipuncture / Unknown 02/13/2024 12:16 PM CDT 02/13/2024 12:20 PM CDT Dangelo Sylvester DO LAB - BLOOD PAM SHEETS [facility] [address] [facility] ([facility], no room number) [place] [address] * Basic metabolic panel (02/13/2024 12:16 PM CDT) Sodium 140 135 - 145 mmol/L 02/13/2024 [...] - 10.0 mg/dL 02/13/2024 12:40 PM CDT [facility] Glucose 97 70 - 99 mg/dL 02/13/2024 12:40 PM CDT [facility] Blood BLOOD SPECIMEN / Unknown Venipuncture / Unknown 02/13/2024 12:16 PM CDT 02/13/2024 12:20 PM CDT Dangelo Sylvester DO LAB - BLOOD LUNAE SUDEEP [facility] Lab [address] Lab (1st floor, no room number) [place] [address], [facility] * MA Screen Bilateral w/Mat (04/25/2022 5:03 [...] patient. JEVON HOWELL MD Denise Woodson APRN [employer]ENDERS SUPERVISOR IMG MAMMOGRA PHY ORDERABLES * (ABNORMAL) Lipid panel reflex to direct LDL Fasting (07/27/2021 8:57 AM SLACKLINE OPERATOR) Cholesterol 202(H) <200 mg/dL 07/28/2021 10:12 AM SLACKLINE OPERATOR [facility] Triglycerides 91 <150 mg/dL 07/28/2021 10:12 AM SLACKLINE OPERATOR [facility] Direct Measure HDL 56 >=50 mg/dL 07/28/2021 10:12 AM SLACKLINE OPERATOR [facility] LDL Cholesterol Calculated 128(H) <=100 mg/dL 07/28/2021 10:12 AM SLACKLINE OPERATOR [facility] Non HDL Cholesterol 146(H) <130 mg/dL 07/28/2021 10:12 AM SLACKLINE OPERATOR [facility] LAB[facility]ATORY Patient Fasting > 8hrs? Yes 07/28/2021 10:12 AM SLACKLINE OPERATOR [facility] Blood STRUCTURE OF RIGHT UPPER LIMB / Unknown Venipuncture / Unknown 07/27/2021 8:57 AM SLACKLINE OPERATOR 07/27/2021 8:57 AM SLACKLINE OPERATOR Narrative [facility]X LABORATORY - 07/28/2021 10:12 AM SLACKLINE OPERATOR Cholesterol Desirable: ??<200 mg/dL Triglycerides Normal: [...] than or equal to 220 mg/dL Denise Ra Woodson CORE [facility] [employer] BOILER TENDERS SUPERVISOR LAB - BLOOD ORDERABLES OX LABORATORY [facility] [address] Lab (no room number, 1st floor of clinic) [place] [address], [facility] [phone] from Last 3 Months or Most Recently Relevant to Health Maintenance Additional Health Concerns Active Problems Noted Date Diagnosed Date Increased risk of re-admission 02/18/2024 Advance Directives For more information, please contact: [phone] * Full Code (Latest Code Status on [...] patie nt/ legal decision maker Care Teams Resident Manager Relationship Specialty Start Date End Date Winston Villatoro OD [facility] [place] [address] [place] [address] PCP - Ophthalmology Ophthalmology 02/11/13 Denise Woodson Ra, APRN BOILER TENDERS SUPERVISOR [address] [place] [address] PCP - General Family Practice 09/21/20 Denise Woodson Ra, APRN BOILER TENDERS SUPERVISOR [address] [place] [address] Assigned PCP 07/17/20 Usha Simon APRN BOILER TENDERS SUPERVISOR [address] [facility] [id number] [address] Nurse Practitioner Neurological Surgery 01/24/24 Dangelo Salinas MD [address] [place] [address] Neurology 01/27/24 Anastasia Stearns, RN Lead Validation Leader 02/06/24 Germaine Lopez, W Community Health Worker Primary Care - CC 02/18/24 Robin Zepeda MD [address] [facility] [address] Assigned Neuroscience Provider 03/08/24
--- OUTSIDE RECORDS SUMMARY | 2024-05-07 18:42 | XMS_ITS | Clinical Summary ---
Author Organization [facility] Address [address] [place] [address] Care Team Providers Care Production Support Analyst Name Role Phone Darius Shaw M.D. Primary Care Provider +1- [phone] Source Comments Patient records contain information from all sites at [facility]. For routine questions regarding patient records, call [phone] during business hours, M-F 8:00 AM - 5:00 PM Central Time. Record requests for emergency care only can be directed to [phone] at any time.[facility] Allergies Active Allergy Reactions Criticality [...] at bedtime. 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 Never 01/10/2023 Do you belong to any clubs o r organizations such as yazidi groups, unions, fraternal or athletic groups, or [...] PHQ-2 Score 3 01/10/2023 [facility] - Occupational Stress Questionnaire Answer Date [...] - 2022-2 4 season) 2023 07/07/2021, 11/20/2020 Asthma Control Test Questionnaire 01/11/2024 023, 04/06/2016 Asthma Management/Exacerbati on Questionnaire (AMQ/AEQ) 01/11/2024 01/10/2023 Influenza Vaccine (#1) 2024 , 06/23/2021, 07/27/2020, Additional history exists Mammogram 07/30/2024 07/30/2023, 07/17, 05/01/2022 (Performed elsewhere), Additional history exists Cologuard 10/28/2025 10/28/2022 Colorectal Cancer Screening 10/28/2025 Lipid (Cholesterol) Screening 07/27/2026, 07/27/2020, 02/13/2018, Additional history exists Fasting Glucose for Diabetes Screening 03/03/2027 03/03/2024, 02/28/2024, 02/27/2024, Additional history exists DTaP,Tdap,and Td Vaccines (3 - Td or Tdap) 01/04/2031 01/04/2021, 01/26/2011, 04/05/2003, Additional history exists Hepatitis B Vaccines Completed 03/03/2012, 11/07/2011, 10/04/2011 Medical Devices Implanted Type Area Ocular Care Technologist Device Identifier Shelf Expiration Date Model / Serial / Lot Mesh Or Patch Mesh or Patch Heart Description:Amplatzer Septal Occluder Asd Closure Device 34mm - Sanders [id number] Implanted:Qty: 1 on 06/20/2006 Septal Defect Occluder Device Other/Legacy - See Implant Description Description:Device Manufactu [facility]. Device Status Text - [id number]. Procedures Procedure Name Priority Date/Time Associated Diagnosis Comments BI BREAST SCREENING BILATERAL WITH TOMOSYNTHESIS RAD - Routine (most inpatients and all outpatients) 07/30/2023 2:38 PM AUTISM TUTOR Screening Mammogram Breast Cancer COLOGUARD Routine 10/28/2022 5:54 PM AUTISM TUTOR Screening Cancer Colon VBG & LYTES CG8+, POCT, B Routine 09/30/2022 10:38 AM AUTISM TUTOR LIPID PANEL, S Routine 02/13/2018 6:56 AM CDT Lizy Danlos Syndrome Chronic Obstructive Pulmonary Disease (HCC) Defect Atrial Septal (HCC) from Last 3 Months or Most Recently Relevant to Health Maintenance Results * BI Breast Screening Bilateral with Tomosynthesis (07/30/2023 2:38 PM AUTISM TUTOR) Anatomical Region Laterality Modality Breast, Breast Imaging RST L OS, Breast Imaging ARZ LOS, Breast Imaging FLA LOS Bilateral Mammography 08/01/2023 12:2 8 PM AUTISM TUTOR Impressions 08/01/2023 12:33 PM AUTISM TUTOR Negative. RECOMMENDATION: ??Annual Screening Mammogram ASSESSMENT: ??BI-RADS: 1: Negative. Narrative 08/01/2023 12:33 PM AUTISM TUTOR EXAM: ??BI BREAST SCREENING BILATERAL WITH TOMOSYNTHESIS Current study was evaluated with a Computer Aided Detection (CAD) system. INDICATION: ??Screening mammogram. COMPARISON: ??Prior exam(s) were available and reviewed for comparison. DENSITY: ??c. The breast(s) are heterogeneously dense, which may obscure small masses. FINDINGS: ??No mammographic findings of malignancy. Procedure Note Mikayla Naatrajan D.O. - 08/01/2023 EXAM: BI BREAST SCREENING BILATERAL WITH TOMOSYNTHESIS Current study was evaluated with a Computer Aided Detection (CAD) system. INDICATION: Screening mammogram. COMPARISON: Prior exam(s) were available and reviewed for comparison. DENSITY: c. The breast(s) are heterogeneously dense, which may obscuresmall masses. FINDINGS: No mammographic findings of malignancy. IMPRESSION: Negative. RECOMMENDATION: Annual Screening Mammogram ASSESSMENT: BI-RADS: 1: Negative. Darius Shaw M.D. G BI PROCEDURES * Cologuard-Sent Out Lab (10/28/2022 5:54 PM AUTISM TUTOR) [facility] Signature Result Negative Negative 11/03/2022 2:48 AM AUTISM TUTOR EXLI Comment: NEGATIVE TEST RESULT. A negative [...] (Yenny Adkins al, N Engl J Med 2014;370(14):6304-2223) The normal value (reference range) for this assay is negative. COLOGUARD RE-SCREENING RECOMMENDATION: Periodic colorectal cancer screening is an important part of preventive healthcare for asymptomatic individuals at average risk for colorectal cancer. ??Following a negative Cologuard result, the [place] Cancer Society and U.S. Multi-Society Task Force screening guidelines recommend a Cologuard re-screening interval of 3 years. References: [place] Cancer Society Guideline for Colorectal Cancer Screening: https://www.cancer.org/cancer/ttbkb-fveuyh-hpxsjl/detection- diagnosis-staging/acs-recommendations.html.; Ming DK, Barbra CR, Erna SimsK, Colorectal Cancer Screening: Recommendations for Physicians and Patients from the U.S. Multi-Society Task Force on Colorectal Cancer Screening , Am J Gastroenterology 2017; 112:4971-8492. TEST DESCRIPTION: Composite algorithmic analysis of stool [...] (Yenny Adkins al, N Engl J Med 2014;370(14):4607-9578.) Cologuard may produce a false negative or false positive result (no colorectal cancer or precancerous polyp present at colonoscopy follow up). A negative Cologuard test result does not guarantee the absence of CRC or advanced adenoma (pre-cancer). The current Cologuard screening interval is every 3 years. ([place] Cancer Society and U.S. Multi-Society Task Force). Cologuard performance data in a 10,000 patient pivotal study using colonoscopy as the reference method can be accessed at the following location: www.OneRiot/results. Additional description of the Cologuard test process, warnings and precautions can be found at www.cologSignicatrd.com. Stool (Stool) 10/28/2022 5:5 4 PM AUTISM TUTOR 10/30/2022 1:57 PM AUTISM TUTOR Darius Shaw M.D. LAB BODY FLUIDS AND STOOLS ORDERABLES [facility] [address] [place] [address] EXLI [place] [address] [facility], [address] [place] [address] * (ABNORMAL) Lipid Panel (02/13/2018 6:56 AM CDT) Cholesterol, Total 200(H) mg/dL 02/13/2018 8:08 AM CDT [facility] Comment: ----REFERENCE VALUE---- Desirable: < 200 Borderline high: 200 - 239 High: > or = 240 Triglycerides 143 mg/dL 02/13/2018 8:08 AM CDT [facility] Comment: ----REFERENCE VALUE---- Normal: <150 Borderline high: 150-199 High: 200-499 Very high: > or =500 Cholesterol, HDL, S 49(L) >=50 mg/dL 02/13/2018 8:08 AM CDT [facility] Calculated LDL 122 mg/dL 02/13/2018 8:08 AM CDT [facility] Comment: ----REFERENCE VALUE---- Desirable: <100 Above Desirable: 100-129 Borderline high: 130-159 High: 160-189 Very high: > or =190 Cholesterol, Non-HDL, Calculated 151 mg/dL 02/13/2018 8:08 AM CDT [facility] Comment: ----REFERENCE VALUE---- Desirable: <130 Above Desirable: 130-159 Borderline high: 160-189 High: 190-219 Very high: > or =220 Blood 02/13/2018 6:56 AM CDT 02/13/2018 7:18 AM CDT Dmoinique Mcgowan M.D. LAB BLOOD ADD- ON [facility] [address] [place] [address], [facility] from Last 3 Months or Most Recently Relevant to Health Maintenance Advance Directives For more information, please contact: [phone] * Full Code (Latest Code Status on File) Date Activated Date Inactivated Comments 09/30/2022 4:41 PM 10/02/2022 6:08 PM Question Answer Comments Full Code: Discussed Care Teams Production Support Analyst Relationship Specialty Start Date End Date Darius Shaw M.D. [address] [place] [phone] PCP - General Family Medicine 09/27/22
--- OUTSIDE RECORDS SUMMARY | 2024-05-07 18:42 | XMS_ITS ---
Author Organization [facility] Address [address] [place] [address] Care Team Providers Care Lithography Contact Worker Name Role Phone Unavailable Unavailable Unavailable Surgery Details Not on file Complications Check Surgery Details section. Procedure Estimated Blood Loss Check Surgery Details section. Procedure Findings Check Surgery Details section. Procedure Specimens Taken Check Surgery Details section.
--- OUTSIDE RECORDS SUMMARY | 2024-05-07 18:42 | XMS_ITS | Clinical Summary ---
Author Organization [facility] Address [place], [place] [address] Care Team Providers Care It Telecom Technician Name Role Phone Keira Irvin MD Primary [...] Encounters Date Type Department Care Team Description 05/07/2024 Office Visit [facility] [address] [place] [address] Roshni Molina MD Telehealth ([facility] - phone consult only) from Last 3 Months Immunizations Name Administration Dates Next Due COVID-19 vaccine ([employer] 30mcg/0.3mL) CORKY ROSARIO 07/07/2021 Hepatitis B, Unspecified [...] REFLEX MEASURED LDL Routine 08/03/2011 10:31 AM RADIOLOGY INTERVENTIONAL PHYSICIAN Screening for other and unspecified cardiovascular conditions from Last 3 Months or Most Recently Relevant to Health Maintenance Results * LIPID PANEL W REFLEX MEASURED LDL (08/03/2011 10:31 AM RADIOLOGY INTERVENTIONAL PHYSICIAN) CHOLESTEROL,TOTAL 171 110 - 199 mg/dL [facility] TRIGLYCERIDES 67 <150 mg/dL [facility] HDL CHOLESTEROL 43 >40 mg/dL [facility] CHOL/HDL RATIO 3.98 <4.51 [facility] LDL CHOLESTEROL 115 <131 mg/dL [facility] PATIENT STATUS Fasting [facility] Blood specimen (specimen) BLOOD SPECIMEN / Unknown 08/03/2011 10:31 AM RADIOLOGY INTERVENTIONAL PHYSICIAN 08/03/2011 10:23 AM RADIOLOGY INTERVENTIONAL PHYSICIAN Jasvir Pickens MD CHEMISTRY [facility] [address] [place] [address] from Last 3 Months or Most Recently Relevant to Health Maintenance Advance Directives * Full Code (Latest Code Status on File) Date Activated Date Inactivated Comments 01/09/2024 7:44 AM 01/09/2024 6:26 PM Question Answer Comments Code Status Discussion: Reviewed Preferences Care Teams It Telecom Technician Relationship Specialty Start Date End Date Keira Irvin MD [address] [place] [address] PCP - General Family Practice 01/08/24
--- OUTSIDE RECORDS SUMMARY | 2024-05-07 18:42 | XMS_ITS | Referral Summary ---
Author Organization [facility] Address [address] [place] [address] Care Team Providers Care Publishing Manager Name Role Phone Darius Shaw M.D. Primary Care Provider +1- [phone] Source Comments Patient records contain information from all sites at [facility]. For routine questions regarding patient records, call [phone] during business hours, M-F 8:00 AM - 5:00 PM Central Time. Record requests for emergency care only can be directed to [phone] at any time.[facility] Allergies Active Allergy Reactions Criticality Noted Date [...] week 01/10/2023 How often do you attend mandaen or restorationism serv ices? Never 01/10/2023 Do you belong to any clubs o r organizations such as mandaen groups, unions, fraternal or athletic groups, or [...] Answer Date Recorded PHQ-2 Score 3 01/10/2023 [facility] - Occupational [...] place to sleep or slept in a nursing home (including now)? No 01/10/2023 Depression Answer [...] on file Medical Devices Implanted Type Area Finished Carpet Inspector Device Identifier Shelf Expiration Date Model / Serial / Lot Mesh Or Patch Mesh or Patch Heart Description:Amplatzer Septal Occluder Asd Closure Device 34mm - Sanders [id number] Implanted:Qty: 1 on 06/20/2006 Septal Defect Occluder Device Other/Legacy - See Implant Description Description:Device Manufactu rer - [employer]. Device Status Text - [id number]. Procedures Procedure Name Priority Date/Time Associated Diagnosis Comments BI BREAST SCREENING BILATERAL WITH TOMOSYNTHESIS RAD - Routine (most inpatients and all outpatients) 07/30/2023 2:38 PM BULK MATERIALS HANDLING PLANT OPERATOR Screening Mammogram Breast Cancer COLOGUARD Routine 10/28/2022 5:54 PM BULK MATERIALS HANDLING PLANT OPERATOR Screening Cancer Colon VBG & LYTES CG8+, POCT, B Routine 09/30/2022 10:38 AM BULK MATERIALS HANDLING PLANT OPERATOR LIPID PANEL, S Routine 02/13/2018 6:56 AM CDT Lizy Danlos Syndrome Chronic Obstructive Pulmonary Disease (HCC) Defect Atrial Septal (HCC) from Last 3 Months or Most Recently Relevant to Health Maintenance Results * BI Breast Screening Bilateral with Tomosynthesis (07/30/2023 2:38 PM BULK MATERIALS HANDLING PLANT OPERATOR) Anatomical Region Laterality Modality Breast, Breast Imaging RST L OS, Breast Imaging ARZ LOS, Breast Imaging FLA LOS Bilateral Mammography 08/01/2023 12:2 8 PM BULK MATERIALS HANDLING PLANT OPERATOR Impressions 08/01/2023 12:33 PM BULK MATERIALS HANDLING PLANT OPERATOR Negative. RECOMMENDATION: ??Annual Screening Mammogram ASSESSMENT: ??BI-RADS: 1: Negative. Narrative 08/01/2023 12:33 PM BULK MATERIALS HANDLING PLANT OPERATOR EXAM: ??BI BREAST SCREENING BILATERAL WITH TOMOSYNTHESIS [...] BI-RADS: 1: Negative. Darius Shaw M.D. [facility] BI PROCEDURES * Cologuard-Sent Out Lab (10/28/2022 5:54 PM BULK MATERIALS HANDLING PLANT OPERATOR) Result Negative Negative 11/03/2022 2:48 AM BULK MATERIALS HANDLING PLANT OPERATOR EXLI Comment: NEGATIVE TEST RESULT. A negative [...] Gates et al, N Engl J Med 2014;370(14):3205-2027) The normal value (reference range) for this assay is negative. COLOGUARD RE-SCREENING RECOMMENDATION: Periodic colorectal cancer screening is an important part of preventive healthcare for asymptomatic individuals at average risk for colorectal cancer. ??Following a negative Cologuard result, the [place] Cancer Society and U.S. Multi-Society Task Force screening guidelines recommend a Cologuard re-screening interval of 3 years. References: [place] Cancer Society Guideline for Colorectal Cancer Screening: https://www.cancer.org/cancer/ydbox-xqalml-dqphhm/detection- diagnosis-staging/acs-recommendations.html.; Ming DK, Barbra CR, Erna SimsK, Colorectal Cancer Screening: Recommendations for Physicians and Patients from the U.S. Multi-Society Task Force on Colorectal Cancer Screening , Am J Gastroenterology 2017; 112:6852-7497. TEST DESCRIPTION: Composite algorithmic analysis of stool [...] Gates et al, N Engl J Med 2014;370(14):6064-3577.) Cologuard may produce a false negative or false positive result (no colorectal cancer or precancerous polyp present at colonoscopy follow up). A negative Cologuard test result does not guarantee the absence of CRC or advanced adenoma (pre-cancer). The current Cologuard screening interval is every 3 years. ([place] Cancer Society and U.S. Multi-Society Task Force). Cologuard performance data in a 10,000 patient pivotal study using colonoscopy as the reference method can be accessed at the following location: www.MediaSite/results. Additional description of the Cologuard test process, warnings and precautions can be found at www.Shoes of PreyogCodefiedrd.com. Stool (Stool) 10/28/2022 5:5 4 PM BULK MATERIALS HANDLING PLANT OPERATOR 10/30/2022 1:57 PM BULK MATERIALS HANDLING PLANT OPERATOR Darius Shaw M.D. LAB BODY FLUIDS AND STOOLS ORDERABLES [employer] [address] [place] [address] [address] [employer] [address] [place] [address], [address] [place] [address] * (ABNORMAL) Lipid Panel (02/13/2018 6:56 AM CDT) Cholesterol, Total 200(H) mg/dL 02/13/2018 8:08 AM CDT [facility] Comment: ----REFERENCE VALUE---- Desirable: < 200 Borderline high: 200 - 239 High: > or = 240 Triglycerides 143 mg/dL 02/13/2018 8:08 AM CDT [facility] Comment: ----REFERENCE VALUE---- Normal: <150 Borderline high: 150-199 High: 200-499 Very high: > or =500 Cholesterol, HDL, S 49(L) >=50 mg/dL 02/13/2018 8:08 AM CDT [facility] Calculated LDL 122 mg/dL 02/13/2018 8:08 AM CDT [facility] Comment: ----REFERENCE VALUE---- Desirable: <100 Above Desirable: 100-129 Borderline high: 130-159 High: 160-189 Very high: > or =190 Cholesterol, Non-HDL, Calculated 151 mg/dL 02/13/2018 8:08 AM CDT [facility] Comment: ----REFERENCE VALUE---- Desirable: <130 Above Desirable: 130-159 Borderline high: 160-189 High: 190-219 Very high: > or =220 Blood 02/13/2018 6:56 AM CDT 02/13/2018 7:18 AM CDT Dominique Mcgowan M.D. LAB BLOOD ADD- ON [facility] [address] [place], [place] [address] from Last 3 Months or Most Recently Relevant to Health Maintenance Advance Directives For more information, please contact: [phone] * Full Code (Latest Code Status on File) Date Activated Date Inactivated Comments 09/30/2022 4:41 PM 10/02/2022 6:08 PM Question Answer Comments Full Code: Discussed Care Teams Publishing Manager Relationship Specialty Start Date End Date Darius Shaw M.D. [address] [place] [phone] PCP - General Family Medicine 09/27/22
--- OUTSIDE RECORDS SUMMARY | 2024-05-07 18:42 | XMS_ITS | Encounter Summary ---
Author Organization [facility] Address [address] [place] [address] Care Team Providers Care Rate Manager Name Role Phone Darius Shaw M.D. Primary Care Provider +1- [phone] Reason for Visit * Reason Comments Med Refill Encounter Details Date Type Department Care Team (Late st Contact Info) Description 01/28/2024 Refill Department of Family Medicine, [facility], in [address] [phone] Darius Shaw M.D. [address] [place] [phone] Med Refill Social History Tobacco Use Types [...] week 01/10/2023 How often do you attend christian or mosque serv ices? Never 01/10/2023 Do you belong to any clubs o r organizations such as christian groups, unions, fraternal or athletic groups, or [...] Answer Date Recorded PHQ-2 Score 3 01/10/2023 [facility] - Occupational Stress Questionnaire Answer [...] documented as of this encounter Care Teams Rate Manager Relationship Specialty Start Date End Date Darius Shaw M.D. WES: [phone] [address] [place] [phone] PCP - General Family Medicine 09/27/22 documented as of this encounter
--- OUTSIDE RECORDS SUMMARY | 2024-05-07 18:42 | XMS_ITS | Encounter Summary ---
Author Organization [facility] Address [address] [place] [address] Care Team Providers Care Vessel Scrapper Name Role Phone Darius Shaw M.D. Primary Care Provider Encounter Details Date Type Department Care Team (Late st Contact Info) Description 05/12/2013 Historical Ophthalmology [facility] Jonathan Bonilla M.D. [address] [place] [phone] Social History Tobacco Use Types Packs/Day Years [...] corneal thickness CDM Reports - EYEGEN Id: [id number] Status: Fnl documented in this encounter Plan of Treatment Not on file documented as of this encounter Visit Diagnoses Not on filedocumented in this encounter Additional Health Concerns Infection Onset Date Last Indicated Resolved Time COVID19 Pending 07/11/2020 07/11/2020 07/12/2020 5 :56 PM CDT COVID19 Pending 07/17/2020 07/17/2020 07/17/2020 9 :18 PM VULCANIZER OPERATOR COVID19 Pending 09/19/2020 09/19/2020 10/09/2020 4 :45 AM VULCANIZER OPERATOR COVID19 Pending 10/25/2020 10/26/2020 10/27/2020 9 :59 AM VULCANIZER OPERATOR COVID19 Pending 06/03/2021 06/03/2021 06/03/2021 9 :40 AM CDT COVID19 Pending 06/03/2021 06/03/2021 06/03/2021 1 0:36 PM CDT COVID19 Pending 08/09/2021 08/09/2021 08/11/2021 1 2:57 AM VULCANIZER OPERATOR COVID19 Pending 06/26/2022 06/26/2022 06/26/2022 5 :47 PM CDT Assessment Noted Time PHQ-9 Depression Total Score: 8 09/18/19 13 7:41 AM VULCANIZER OPERATOR documented as of this encounter Care Teams Vessel Scrapper Relationship Specialty Start Date End Date Darius Shaw M.D. [address] [place] [phone] PCP - General Family Medicine 09/27/22 documented as of this encounter
--- OUTSIDE RECORDS SUMMARY | 2024-05-07 18:43 | XMS_ITS | Encounter Summary ---
Author Organization [facility] Address [address] [place] [address]. [place] [address] Care Team Providers Care Home Companion Name Role Phone Winston Villatoro OD Unavailable [phone] Denise [facility] Ra, APRN ENVELOPE CUTTER Unavailable [phone] Denise [facility] Ra SOLE EDGE INKER MACHINE ENVELOPE CUTTER Primary Care Provid er Usha Simon APRN ENVELOPE CUTTER Unavailable Dangelo Salinas MD Unavailable Anastasia Stearns RN Unavailable [phone] Germaine Lopez CHW Unavailable [phone] Robin Zepeda MD Unavailable [phone] Reason for Visit * Reason Comments Medication Refill Encounter Details Date Type Department Care Team (Late st Contact Info) Description 04/30/2024 Refill [facility] [address] [place] [address] Denise [facility] Ra, APRN ENVELOPE CUTTER [address] [place] [address] Medication Refill Social History Tobacco [...] Never 02/28/2024 How often do you attend anabaptism or religion serv ices? Never 02/28/2024 Do you belong [...] 02/28/2024 PHQ-2 Answer Date Recorded PHQ-2 Score 1 04/14/2024 [facility] of Occupat ional [...] Answer Date Recorded Do you have housing? (Housin g is defined as stable permanent housing and does not include staying ouside in a car, in a tent, in an abandoned building, in an overnight correction, or couch-surfing.) Yes 02/28/2024 Are you worried [...] encounter Miscellaneous Notes * Telephone Encounter - Renata Pimentel RN - 04/30/2024 3:02 PM CDT Patient has enough meds until appt. documented in this encounter Plan of Treatment Upcoming Encounters Date Type Department Care Team (Late st Contact Info) Description 06/08/2024 8:30 AM CDT Office Visit [facility] [address] [place] [address] Denise [facility] Ra, SOLE EDGE INKER MACHINE ENVELOPE CUTTER [address] [place] [address] documented as of this encounter Goals Goal Patient Goal Type Associated Problems Recent Progress Patient-Stated? Author I would like additional resources and support to manage my health and prevent future avoidable ED visits/hospital admissions Care Plan Increased risk of re-admission 10%( 4 3:13 PM CDT) Anastasia Talamantes, RN Note: Barriers: diagnosis of multiple, chronic, complex medical conditions, provider availability - wait time to complete appointments, etc. Strengths: motivated, engaged in care coordination Patient expressed understanding of goal: yes Action steps to achieve this goal: 1. I will follow up with my providers as scheduled/recommended - Mental Health weekly - PT, OT and QUILL BUNCHER AND SORTER - PCP appointment 03/17/24 - Neurology 05/05/24, [...] understand I can contact my clinic with / after hours services available. Court Liaison will remain available as needed. documented as of this encounter Visit Diagnoses Diagnosis History of seizure documented in this encounter Additional Health Concerns Active Problems Noted Date Diagnosed Date Increased risk of re-admission 02/18/2024 Assessment Noted Time PHQ-9 Depression Total Score: 5 03/17/20 24 9:45 AM CDT documented as of this encounter Care Teams Home Companion Relationship Specialty Start Date End Date Winston Villatoro OD [facility] [address] [facility] [address] [place] [address] PCP - Ophthalmology Ophthalmology 02/11/13 [facility]ise [facility] Ra, APRN ENVELOPE CUTTER [address] [place] [address] PCP - General Family Practice 09/21/20 [facility]ise [facility] Ra, APRN ENVELOPE CUTTER [address] [place] [address] Assigned PCP 07/17/20 Usha Simon APRN ENVELOPE CUTTER [address] [facility] [place] [address] Nurse Practitioner Neurological Surgery 01/24/24 Dangelo Salinas MD [address] [place] [address] Neurology 01/27/24 Anastasia Stearns, RN Lead Court Liaison 02/06/24 Germaine Lopez, W Community Health Worker Primary Care - CC 02/18/24 Robin Zepeda MD [address] [facility] [place] [address] Assigned Neuroscience Provider 03/08/24 documented as of this encounter
--- OUTSIDE RECORDS SUMMARY | 2024-05-07 18:43 | XMS_ITS ---
Care Plan Created on: May 07, 2024 [place] : 1975 Sex: Female Author Organization [facility] Address [address] [place] [address] Care Team Providers Care Clinical Research Scientist Name Role Phone Winston Villatoro OD Unavailable [phone] Denise [facility] Ra, APRN WALL AND FLOOR TILER Unavailable [phone] Denise [facility] Ra, APRN WALL AND FLOOR TILER Primary Care Provid er Usha Simon APRN WALL AND FLOOR TILER Unavailable [phone] Dangelo Salinas MD Unavailable Anastasia Stearns RN Unavailable [phone] Germaine Lopez CHW Unavailable [phone] Robin Zepeda MD Unavailable Active Problems Problem Noted Date Diagnosed Date [...] Mental Health weekly - PT, OT and FILM INSPECTOR - PCP appointment 03/17/24 - Neurology 05/05/24, [...] clinic with 08/04 after hours services available. Third Mate will remain available as needed. Interventions Intervention [...]
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
--- OUTSIDE RECORDS SUMMARY | 2024-05-07 18:43 | XMS_ITS | Referral Summary ---
Author Organization [place] Address [address] [place] [id number] Care Team Providers Care Oil Furnace Installer Name Role Phone ShaunaWinston OD Unavailable [phone] Denise Woodson Ra, APRN SLIVER MACHINE OPERATOR Unavailable [phone] Denise Woodson Ra, APRN SLIVER MACHINE OPERATOR Primary Care Provid er Usha Simon APRN SLIVER MACHINE OPERATOR Unavailable [phone] Dangelo Salinas MD Unavailable Anastasia Stearns RN Unavailable [phone] Germaine Lopez CHW Unavailable Robin Zepeda MD Unavailable Encounters Date Type Department Care Team Description 05/06/2024 MyC Medical Advice [facility] [address], [address] [place] [address] Rohit Barcenas MD 05/05/2024 Travel 05/05/2024 2:30 PM CDT Office Visit [facility] [address], [address] [place] [address] Rohit Barcenas MD 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) (Primary Dx); Fibromuscular dysplasia (H24); Cerebrovascular accident (CVA), unspecified mechanism (H) 05/04/2024 Travel 05/01/2024 Travel 05/01/2024 10:30 AM CDT Office Visit [facility] [place] [address] [place] [phone] Lisa Zambrano MD Fibromuscular dysplasia (H24) ?? 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[place] [id number] 04/30/2024 Travel 04/30/2024 Refill [facility] [address] [place] [phone] Denise Woodson Ra, BARRERA HUBBARD Medication Refill 04/28/2024 Travel 04/27/2024 Telephone [facility] [address] [place] [phone] Denise Woodson Ra, BARRERA SLIVER MACHINE OPERATOR Medication Refill 04/15/2024 Travel 04/15/2024 8:45 AM CDT Therapy Visit [address] [phone] Denise Woodson Ra, PATIENT FINANCIAL SERVICES MANAGER SLIVER MACHINE OPERATOR Isabel Beaulieu, OTR Cerebrovascular accident (CVA), unspecified mechanism (H) (Primary Dx) 04/15/2024 9:30 AM CDT Therapy Visit [address] [phone] Danya You, Danya Liu, ACID TANK CLEANER Cognitive communication deficit (Primary Dx); Cerebrovascular accident (CVA), unspecified mechanism (H) 04/14/2024 Travel 04/14/2024 Telephone [facility] [place] [address] [place] [phone] Nurse, [facility] Referral (Pt referred to [facility] by Dr. Raul Hoyos for fibromuscular dysplasia.) 04/14/2024 9:30 AM CDT Virtual Visit [facility] [address] [phone] Raul Hoyos MD History of CVA (cerebrovascular accident) (Primary Dx); Fibromuscular dysplasia (H24) 04/13/2024 12:00 PM CDT Virtual Visit [address] [phone] Denise Woodson Ra, APRN SLIVER MACHINE OPERATOR Cerebrovascular accident (CVA), unspecified mechanism (H) (Primary Dx) 04/08/2024 Telephone [facility] [id number] [place] [phone] Denise Woodson Ra, BARRERA SLIVER MACHINE OPERATOR 04/06/2024 MyC Medical Advice Initial Department [facility] 04/02/2024 Travel 04/02/2024 Telephone [facility] [address] [phone] Raul Hoyos MD Clinic Care Coordination - Follow-up 04/02/2024 MyC Medical Advice [facility] [address] [phone] Liliane Cobos 04/02/2024 2:15 PM CDT Therapy Visit [address] [phone] Danya You PA Peterson, Megan A OTR Cerebrovascular accident (CVA), unspecified mechanism (H) (Primary Dx) 04/02/2024 3:15 PM CDT Therapy Visit [facility] [address] [place] [phone] Danya You PA Raasch, Sharon, ACID TANK CLEANER Cognitive communication deficit (Primary Dx); Cerebrovascular accident (CVA), unspecified mechanism (H) 04/02/2024 4:15 PM CDT Therapy Visit [address] [phone] Danya You, Delicia Higgins, PT Cerebrovascular accident (CVA), unspecified mechanism (H) (Primary Dx) 04/01/2024 Travel 03/31/[address] [phone] Denise Woodson Ra, BARRERA HUBBARD Medication Refill 03/26/2024 Travel 03/26/2024 1:30 PM CDT Therapy Visit [address] [phone] Danya You PA Peterson, Megan A, OTR Cerebrovascular accident (CVA), unspecified mechanism (H) (Primary Dx) 03/26/2024 2:30 PM CDT Therapy Visit [address] [phone] Danya You PA Raasch, Sharon, ACID TANK CLEANER Cognitive communication deficit (Primary Dx); Cerebrovascular accident (CVA), unspecified mechanism (H) 03/26/2024 3:30 PM CDT Therapy Visit [address] [phone] Danya You, Delicia Higgins, PT Cerebrovascular accident (CVA), unspecified mechanism (H) (Primary Dx) 03/18/2024 Travel 03/18/2024 1:21 PM CDT - 03/18/2024 11:59 PM CDT Hospital Encounter [facility] [address] [place] [address] [place] [phone] Denise Woodson Ra, APRN CNP Fibromuscular dysplasia (H24) Discharge Disposition: Home or Self Care 03/17/2024 10:00 AM CDT Office Visit [address] [phone] Denise Woodson Ra, APRN CNP History of seizure (Primary Dx); Cerebrovascular accident (CVA), unspecified mechanism (H) 03/17/2024 1:30 PM CDT Therapy Visit [address] [phone] Danya You, Isabel Payan, OTR Cerebrovascular accident (CVA), unspecified mechanism (H) (Primary Dx) 03/17/2024 2:30 PM CDT Therapy Visit [address] [phone] Danya You PA Raasch, Sharon, ACID TANK CLEANER Cognitive communication deficit (Primary Dx); Cerebrovascular accident (CVA), unspecified mechanism (H) 03/17/2024 4:00 PM CDT Therapy Visit [address] [phone] Danya You PA Katzmark, Erin, PT Cerebrovascular accident (CVA), unspecified mechanism (H) (Primary Dx) 03/16/2024 Travel 03/16/2024 Telephone [facility] [address] [phone] Raul Hoyos MD Appointment (Follow up ) 03/16/2024 MyC Medical Advice [facility] [address] [phone] Ora Bazan 03/11/2024 Travel 03/11/2024 2:15 PM CDT Therapy Visit [address] [phone] Danya You PA Peterson, Megan A, OTR Cerebrovascular accident (CVA), unspecified mechanism (H) (Primary Dx) 03/11/2024 3:00 PM CDT Therapy Visit [address] [phone] Danya You, Charis Thomas, ACID TANK CLEANER Cognitive communication deficit (Primary Dx); Cerebrovascular accident (CVA), unspecified mechanism (H) 03/11/2024 4:15 PM CDT Therapy Visit [address] [phone] Danya You, Delicia Higgins, PT Cerebrovascular accident (CVA), unspecified mechanism (H) (Primary Dx) 03/09/2024 Telephone [facility] [address] [phone] Raul Hoyos MD Call Back (Follow up appointment ) 03/05/2024 Travel 03/05/2024 1:30 PM CDT Therapy Visit [address] [phone] Danya You, Isabel Payan, OTR Cerebrovascular accident (CVA), unspecified mechanism (H) (Primary Dx) 03/05/2024 3:15 PM CDT Therapy Visit [address] [phone] Danya You, Charis Thomas, JUAN Cerebrovascular accident (CVA), unspecified mechanism (H) (Primary Dx); Cognitive communication deficit 03/05/2024 4:15 PM CDT Therapy Visit [address] [phone] Danya You PA Hoyt, Kelly, PT Cerebrovascular accident (CVA), unspecified mechanism (H) (Primary Dx) 03/04/2024 Travel 03/03/2024 Refill [facility] [address] [place] [phone] Denise Woodson Ra, APRN SLIVER MACHINE OPERATOR Medication Refill 03/03/2024 Travel 03/03/2024 11:14 AM CDT - 03/03/2024 2:19 PM CDT Emergency [facility] Emergency Dept [address] [place] [phone] Brayan Reich MD Right flank pain; Right sided abdominal pain Discharge Disposition: Home or Self Care 03/02/2024 Orders Only [address] [place] [address] Liliane Mcnair PA-C Hematuria, unspecified type (Primary Dx) 02/28/2024 10:46 AM CDT - 02/28/2024 11:59 PM CDT Hospital Encounter [facility] [address] [place] [phone] Janna Jo APRN CNP Flank pain; Abdominal pain, epigastric Discharge Disposition: Home or Self Care 02/28/2024 10:00 AM CDT Office Visit [facility] [address] [place] [phone] Janna Jo APRN CNP Flank pain; Abdominal pain, epigastric; TSH elevation 02/27/2024 Travel 02/27/2024 3:00 PM CDT Office Visit [address] [place] [address] Liliane Mcnair PA-C Flank pain (Primary Dx); Abdominal pain, epigastric; Cerebrovascular accident (CVA), unspecified mechanism (H) 02/27/2024 MyC Medical Advice [facility] [address] [place] [phone] Denise Woodson Ra, BARRERA SLIVER MACHINE OPERATOR 02/24/2024 Travel 02/19/2024 Travel 02/19/2024 3:00 PM CDT Therapy Visit [address] [phone] Danya You, Isabel Payan, OTR Cerebrovascular accident (CVA), unspecified mechanism (H) (Primary Dx) 02/17/2024 Travel 02/17/2024 2:45 PM CDT Therapy Visit [address] [phone] Danya You, Aliya Toledo, ACID TANK CLEANER Cerebrovascular accident (CVA), unspecified mechanism (H) (Primary Dx); Cognitive communication deficit 02/15/2024 Travel 02/14/2024 Telephone [facility] [address] [place] [phone] Denise Woodson Ra, BARRERA SLIVER MACHINE OPERATOR 02/14/2024 MyC Medical Advice [facility] [address] [place] [phone] Denise Woodson Ra, PATIENT FINANCIAL SERVICES MANAGER SLIVER MACHINE OPERATOR Medication Request; Forms 02/14/2024 Travel 02/14/2024 12:45 PM CDT Therapy Visit [address] [phone] Danya You PA Peterson, Megan A, OTR Cerebrovascular accident (CVA), unspecified mechanism (H) (Primary Dx) 02/14/2024 2:00 PM CDT Therapy Visit [address] [phone] Danya You, Charis Thomas, ACID TANK CLEANER Cerebrovascular accident (CVA), unspecified mechanism (H) (Primary Dx) 02/14/2024 2:45 PM CDT Therapy Visit [address] [phone] Danya You PA Mussehl, Samantha J, PT Cerebrovascular accident (CVA), unspecified mechanism (H) (Primary Dx) 02/13/2024 Travel 02/13/2024 12:11 PM CDT - 02/13/2024 3:28 PM CDT Emergency [facility] Emergency Dept [address] [place] [phone] Dangelo Sylvester DO Dizziness Discharge Disposition: Home or Self Care 02/12/2024 Telephone [facility] [address] [phone] Robin Zepeda MD 02/12/2024 3:40 PM CDT Virtual Visit [facility] [address] [phone] Robin Zepeda MD Dural arteriovenous fistula (Primary Dx) 02/07/2024 2:00 PM CDT Therapy Visit [address] [phone] Danya You PA Raasch, Sharon, ACID TANK CLEANER Cerebrovascular accident (CVA), unspecified mechanism (H) (Primary Dx) 02/06/2024 Telephone [facility] [address] [phone] Meche De La Cruz, GEMA Appointment (Follow-up 02/04/24 PHQ9) 02/06/2024 MyC Medical Advice [facility] [address] [place] [address] Denise Woodson Ra, APRN SLIVER MACHINE OPERATOR H/O prolonged Q-T interval on ECG (Primary Dx) 02/06/2024 Travel 02/06/2024 8:30 AM CDT Office Visit [facility] [address] [place] [phone] Denise Woodson Ra, APRN CNP Fibromuscular dysplasia (H24) (Primary Dx); Cerebrovascular accident (CVA), unspecified mechanism (H); TSH elevation 02/05/2024 Telephone [facility] [address] 3rd [place] [address] Robin Zepeda MD 02/05/2024 Travel from Last 3 Months Allergies Active Allergy [...] Name Administration Dates Next Due COVID-19 Vaccine (Kagera) 11/20/2020 Flu, Unspecified 07/11/2017,07/02/2014 HepB 03/03/2012,11/07/2011,10/04/2011 Hepatitis [...] Adsorbed 04/05/2003,02/14/2003 Tdap (Adult) Unspecified Formulation 02/14/2003 Social History Tobacco Use Types Packs/Day Years [...] Never 02/28/2024 How often do you attend mu-ism or restorationist serv ices? Never 02/28/2024 Do you belong to any clubs o r organizations such as mu-ism groups, unions, fraternal or athletic groups, or [...] Answer Date Recorded PHQ-2 Score 2 05/05/2024 [facility] - Occupational Stress [...] Date Recorded Do you have housing? (Valerie winkler is defined as stable permanent housing and does not include staying ouside in a car, in a tent, in an abandoned building, in an overnight half-way, or couch-surfing.) Yes 02/28/2024 Are you worried [...] Description 06/08/2024 8:30 AM CDT Office Visit [facility] [address] [place] [address] Denise Woodson Ra, PATIENT FINANCIAL SERVICES MANAGER [facility] [address] [place] [address] Goals Goal Patient Goal Type Associated Problems [...] Mental Health weekly - PT, OT and ACID TANK CLEANER - PCP appointment 03/17/24 - Neurology 05/05/24, [...] clinic with 08/04 after hours services available. Registered Mail Clerk will remain available as needed. Procedures Procedure [...] DIRECT LDL PANEL Routine 07/27/2021 8:57 AM INTERIOR DECORATOR CARDIOVASCULAR SCREENING; LDL GOAL LESS THAN 160 [...] identified. SINGH WORLEY MD Denise Woodson APRN [facility] IMG CT ORDER NASRIN * CT Abdomen [...] is identified. PETRONA HARRIS MD SYSTEM ID: ??[id number] Narrative 03/03/2024 2:[address] ABDOMEN [...] is identified. PETRONA HARRIS MD SYSTEM ID: [id number] Brayan Reich MD IMG CT ORDERABLES * CBC with platelets and [...] Reich MD LAB - BLOOD ORDERABL ES LABORATORY [facility] [address] [facility] [address] [facility] [address] [facility] Lab (1st floor, no room number) [place] [address], [facility] * Troponin T, High Sensitivity (03/03/2024 11:49 AM CDT) Only the most recent of2 resultswithin the time period is included. Troponin T, High Sensitivity <6 <=14 ng/L 03/03/2024 1:14 PM CDT [facility] LABORATORY Comment: Either a [...] Reich MD LAB - BLOOD ORDERABL ES LABORATORY [facility] [address] [facility] Lab (1st floor, no room number) [place] [address] * Comprehensive metabolic panel (03/03/2024 11:49 AM CDT) Only the most recent of3 resultswithin the time period is included. [facility] Sodium 140 135 - 145 mmol/L 03/03/2024 1:14 PM CDT LABORATORY Comment:Reference intervals for this test were updated on 06/11/2023 to more accurately reflect our healthy population. There may be differences in the flagging of prior results with similar values performed with this method. Interpretation of those prior results can be made in the context of the updated reference intervals. Potassium 5.0 3.4 - 5.3 mmol/L 03/03/2024 1:14 PM CDT LABORATORY Carbon Dioxide (CO2) 27 22 - 29 mmol/L 03/03/2024 1:14 PM CDT LABORATORY Anion Gap 10 7 - 15 mmol/L 03/03/2024 1:14 PM CDT LABORATORY Urea Nitrogen 11.4 6.0 - 20.0 mg/dL 03/03/2024 1:14 PM CDT LABORATORY Creatinine 0.81 0.51 - 0.95 mg/dL 03/03/2024 1:14 PM CDT [facility] GFR Estimate 90 >60 mL/min/1. 73m2 03/03/2024 1:14 PM CDT [facility] LAB[facility] Comment:eGFR calculated us2020 CKD-EPI equation. Calcium 9.8 8.6 - 10.0 [...] LAB - BLOOD ORDERABL ES RH LABORATORY [facility] [address] Lab (1st floor, no room number) [place] [address], [facility] * EKG 12-lead, tracing only (03/03/2024 11:41 AM CDT) Only the most recent of2 resultswithin the time period is included. Systolic Blood Pressure mmHg RADIOLOGY RESULTS Diastolic Blood Pressure mmHg RADIOLOGY RESULTS Ventricular Rate 64 BPM RAD IOLOGY RESULTS Atrial Rate 64 BPM RADIOLOG Y RESULTS SC Interval 160 ms RADIOLOG Y RESULTS QRS Duration 92 ms RADIOLO GY RESULTS QT 402 ms RADIOLOGY RESULTS QTc 414 ms RADIOLOGY RESULTS P [place] 53 degrees RADIOLOGY RESULTS R AXIS 69 degrees RADIOLOGY RESULTS T [place] 28 degrees RADIOLOGY RESULTS Interpretation ECG Sinus rhythm Possible Left atrial enlargement Borderline ECG When compared with ECG of 13-FEB-2024 12:51, Premature ventricular complexes are no longer Present RADIOLOGY RESULTS 03/03/2024 11:4 1 AM CDT Dangelo Sylvester DO ECG ORDERABLES RADIOLOGY RESULTS * HCG qualitative urine (03/03/2024 10:27 AM CDT) Pathologist [facility] hCG Urine Qualitative Negative Negative PRATEEK 03/03/2024 12:05 PM CDT LABORATORY Comment:This test is for scr eening purposes. Results should be interpreted along with the clinical picture. Confirmation testing is available if warranted by ordering [id number], HCG Quantitative . Urine URINE SPECIMEN OBTAINED BY CLEAN CATCH PROCEDURE / Unknown Non-blood Collection / Unknown 03/03/2024 10:27 AM CDT 03/03/2024 10:33 AM CDT Brayan Reich MD LAB - URINE ORDERABL ES LABORATORY [facility] [address] Lab (1st floor, no room number) [place] [address], [facility] * (ABNORMAL) UA with Microscopic reflex to Culture (03/03/2024 10:27 AM CDT) Color Urine Straw Colorless, Straw, Light Yellow, Yellow 03/03/2024 10:40 AM CDT LABORATORY Appearance Urine Clear Clear 06/18/20 24 10:40 AM CDT RH LABORAT[facility] Glucose Urine Negative Negative mg/dL 03/03/2024 10:40 AM CDT [facility] LABORATORY Bilirubin Urine Negative Negative 10:40 AM CDT [facility] LAB[facility] Ketones Urine Negative Negative mg/dL 03/03/2024 10:40 AM CDT RH LABORATORY Specific [place] Urine 1.005 1.003 - 1.035 03/03/2024 10:40 AM CDT LABORATORY Blood Urine Trace(A) Negative 03/03/2024 10:40 AM CDT LABORATORY pH Urine 7.5(H) 5.0 - 7.0 03/03/2024 10:40 AM CDT RH LAB[facility]AT[facility] Protein Albumin Urine Negative Negative mg/dL 03/03/2024 10:40 AM CDT RH LABORATORY Urobilinogen Urine Normal Normal, 2.0 mg/dL 03/03/2024 10:40 AM CDT [facility] LABORATORY Nitrite Urine Negative Negative 03/03/2024 10:40 AM CDT RH LABORATORY Leukocyte Esterase Urine Negative Negative 03/03/2024 10:40 AM CDT LABORATORY Bacteria Urine Few(A) None Seen /HPF 03/03/2024 10:40 AM CDT LABORATORY Mucus Urine Present(A) None Seen /LPF 03/03/2024 10:40 AM CDT LABORATORY RBC Urine 1 <=2 /HPF 03/03/2024 10:40 AM CDT LABORATORY WBC Urine 2 <=5 /HPF 03/03/2024 10:40 AM CDT LABORATORY Squamous Epithelials Urine 10(H) <=1 /HPF 03/03/2024 10:40 AM CDT LABORATORY Hyaline Casts Urine 1 <=2 /LPF 03/03/2024 10:40 AM CDT LABORATORY Urine URINE SPECIMEN OBTAINED BY CLEAN CATCH PROCEDURE / Unknown Non-blood Collection / Unknown 03/03/2024 10:27 AM CDT 03/03/2024 10:33 AM CDT Narrative LABORATORY - 03/03/2024 10:40 AM CDT Urine Culture not indicated Brayan Reich MD LAB - URINE ORDERABL ES LABORATORY [facility] [address] [facility] Lab (1st floor, no room number) [place] [address], [place] * Erythrocyte sedimentation rate auto (02/28/2024 10:38 AM CDT) Erythrocyte Sedimentation Rate 20 0 - 20 mm/hr 02/28/2024 11:18 AM CDT RH LABORATORY Blood VENOUS LINE / Unknown Venipuncture / Unknown 02/28/2024 10:38 AM CDT 02/28/2024 10:47 AM CDT Janna Jo APRN [facility] LAB - BLOOD ORDERABLES LABORATORY [facility] [address] Lab (1st floor, no room number) [address] * (ABNORMAL) CRP inflammation (02/28/2024 10:38 AM CDT) CRP Inflammation 6.29(H) <5.00 mg/L 02/28/2024 11:39 AM CDT RH LABORATORY Blood VENOUS LINE / Unknown Venipuncture / Unknown 02/28/2024 10:38 AM CDT 02/28/2024 10:47 AM CDT Janna Jo APRN, CNP LAB - BLOOD ORDERABLES Performing Organization Address City/[facility]/ZIP Co de Phone Number LABORATORY [facility] [address] Lab (1st floor, no room number) [address] * TSH with free T4 reflex (02/28/2024 10:27 AM CDT) TSH 3.87 0.30 - 4.20 uIU/mL 02/28/2024 11:56 AM CDT RH LABORATORY Blood ARTERIAL LINE / Unknown Venipuncture / Unknown 02/28/2024 10:27 AM CDT 02/28/2024 11:08 AM CDT Janna Jo APRN [facility] LAB - BLOOD ORDERABLES LABORATORY [facility] [address] Lab (1st floor, no room number) [place] [address] * Lipase (02/27/2024 5:27 PM CDT) Pathologist [facility] Lipase 24 13 - 60 U/L 02/28/2024 8:32 PM CDT UU LABORATORY Blood BLOOD SPECIMEN / Unknown Venipuncture / Unknown 02/27/2024 5:27 PM CDT 02/27/2024 5:27 PM CDT Liliane Mcnair PA-C LAB - BLOOD ORDER NASRIN [facility]U LABORATORY [facility] [place] [facility] [address] [facility], Room [address] [address] * (ABNORMAL) UA Microscopic with Reflex to Culture (02/27/2024 3:42 PM CDT) Pathologist [facility] Bacteria Urine Moderate( A) None Seen /HPF [...] LAB - URINE ORDER NASRIN EA LABORATORY [facility] [place] [facility] [address] [place] [address], [facility] [phone] * (ABNORMAL) UA Macroscopic with reflex to [...] 02/27/2024 3:52 PM CDT EA LABORATORY Specific [place] Urine 1.025 1.003 - 1.035 02/27/2024 3:52 [...] Mcnair PA-C LAB - URINE ORDER NASRIN LABORATORY [facility] [place] [facility] [address] [place] [address], [facility] [phone] * MR Brain w/o Contrast (02/13/2024 2:50 [...] a DVA. FRAN ROBBINS MD SYSTEM ID: ??[id number] Narrative 02/13/2024 3:14 PM CDT MR BRAIN [...] a DVA. FRAN ROBBINS MD SYSTEM ID: [id number] Dangelo Chapin Nga DO IMG MRI ORDERABL ES * CTA [...] hours CDT. FRAN ROBBINS MD SYSTEM ID: ??[id number] Narrative 02/13/2024 12:49 PM CDT EXAM: CTA [...] of the upper aortic arch through the alturas of Amb[place]. This CT angiogram data was [...] of the upper aortic arch through the alturas of [place]. This CT angiogram data was [...] hours CDT. FRAN ROBBINS MD SYSTEM ID: [id number] Dangelo Sylvester DO IMG CT ORDERABLE S * CT Head w/o Contrast (02/13/2024 12:28 PM CDT) Anatomical Region Laterality Modality Head, SUBRAD CT NEURO, SUBRA D CT NEURO, UMP CT NEURO, RAD CT Computed Tomography Impressions 02/13/2024 12:49 PM CDT IMPRESSION: No acute intracranial pathology. FRAN ROBBINS MD SYSTEM ID: ??[id number] Narrative 02/13/2024 12:49 PM CDT EXAM: CT HEAD W/O CONTRAST ??02/13/2024 12:28 PM HISTORY: ??Code Stroke to evaluate for potential thrombolysis and thrombectomy. PLEASE READ IMMEDIATELY. ?? COMPARISON: ??Brain MRI, Head CT and CTA 02/04/2024 TECHNIQUE: Using multidetector thin collimation helical acquisition technique, axial, coronal and sagittal CT images from the skull base to the vertex were obtained without intravenous contrast. Retirement Village Manager (topogram) image(s) also obtained and reviewed. [...] the vertex were obtained without intravenous contrast. Retirement Village Manager (topogram) image(s) also obtained and reviewed. [...] intracranial pathology. FRAN ROBBINS MD SYSTEM ID: [id number] Dangelo Sylvester DO IMG CT ORDERABLE S * Glucose by meter (02/13/2024 12:18 PM CDT) GLUCOSE BY METER POCT 95 70 - 99 mg/dL 02/13/2024 12:25 PM CDT LABORATORY POC Blood, venous BLOOD SPECIMEN / Unknown 02/13/2024 12:18 PM CDT 02/13/2024 12:25 PM CDT Dangelo Sylvester DO LAB - BEAKER POC T LABORATORY [facility] Lab [address] [facility] Lab (1st floor, no room number) [place] [address], [facility] * INR (02/13/2024 12:16 PM CDT) INR 0.94 0.85 - 1.15 02/13/2024 12:42 PM CDT RH LABORATORY Blood BLOOD SPECIMEN / Unknown Venipuncture / Unknown 02/13/2024 12:16 PM CDT 02/13/2024 12:20 PM CDT Dangelo Sylvester LAB - BLOOD ORDE SUDEEP LABORATORY [facility] [address] Lab (1st floor, no room number) [address] * Partial thromboplastin time (02/13/2024 12:16 PM CDT) aPTT 26 22 - 38 Seconds 02/13/2024 12:42 PM CDT RH LABORATORY Blood BLOOD SPECIMEN / Unknown Venipuncture / Unknown 02/13/2024 12:16 PM CDT 02/13/2024 12:20 PM CDT Dangelo Sylvester LAB - BLOOD ORDE SUDEEP Performing Organization Address [facility]/ZIP Co de Phone Number LABORATORY [facility] [address] Lab (1st floor, no room number) [address] * hCG Qualitative (02/13/2024 12:16 PM CDT) hCG Serum Qualitative Negative Negative PRATEEK 02/13/2024 12:49 PM CDT [facility] Comment:This test is for scr eening purposes. Results should be interpreted along with the clinical picture. Confirmation testing is available if warranted by ordering [id number], HCG Quantitative . Blood BLOOD SPECIMEN / Unknown Venipuncture / Unknown 02/13/2024 12:16 PM CDT 02/13/2024 12:20 PM CDT Dangelo Sylvester LAB - BLOOD ORDE SUDEEP LABORATORY [facility] [address] Lab (1st floor, no room number) [address] * Basic metabolic panel (02/13/2024 12:16 [...] Sylvester DO LAB - BLOOD PAM SHEETS LABORATORY [facility] [address] [facility] Lab (1st floor, no room number) [place] [address], [facility] * [place] Screen Bilateral w/Mat (04/25/2022 5:03 [...] patient. JEVON HOWELL MD Denise Woodson APRN SLIVER MACHINE OPERATOR IMG MAM[facility] PHY ORDERABLES * (ABNORMAL) Lipid panel reflex to direct LDL Fasting (07/27/2021 8:57 AM INTERIOR DECORATOR) Cholesterol 202(H) <200 mg/dL 07/28/2021 10:12 AM INTERIOR DECORATOR OX LABORATORY Triglycerides 91 <150 mg/dL 07/28/2021 10:12 AM INTERIOR DECORATOR OX LABORATORY Direct Measure HDL 56 >=50 mg/dL 07/28/2021 10:12 AM INTERIOR DECORATOR OX LABORATORY LDL Cholesterol Calculated 128(H) <=100 mg/dL 07/28/2021 10:12 AM INTERIOR DECORATOR OX LABORATORY Non HDL Cholesterol 146(H) <130 mg/dL 07/28/2021 10:12 AM INTERIOR DECORATOR OX LABORATORY Patient Fasting > 8hrs? Yes 07/28/2021 10:12 AM INTERIOR DECORATOR OX LABORATORY Blood STRUCTURE OF RIGHT UPPER LIMB / Unknown Venipuncture / Unknown 07/27/2021 8:57 AM INTERIOR DECORATOR 07/27/2021 8:57 AM INTERIOR DECORATOR Narrative OX LABORATORY - 07/28/2021 10:12 AM INTERIOR DECORATOR Cholesterol Desirable: ??<200 mg/dL Triglycerides Normal: ??Less [...] equal to 220 mg/dL Denise Woodson APRN SLIVER MACHINE OPERATOR LAB - BLOOD ORDERABLES OX LABORATORY [facility] [address] Lab (no room number, 1st floor of clinic) [place] [address], [facility] [phone] from Last 3 Months or Most Recently Relevant to Health Maintenance Additional Health Concerns Active Problems Noted Date Diagnosed Date Increased risk of re-admission 02/18/2024 Advance Directives For more information, please contact: [phone] * Full Code (Latest Code Status on [...] patie nt/ legal decision maker Care Teams Oil Furnace Installer Relationship Specialty Start Date End Date Winston Villatoro OD [facility] [address] [place] [address] PCP - Ophthalmology Ophthalmology 02/11/13 Denise Woodson Ra, PATIENT FINANCIAL SERVICES MANAGER SLIVER MACHINE OPERATOR [address] [address] [place] [address] PCP - General Family Practice 09/21/20 Denise Woodson Ra, PATIENT FINANCIAL SERVICES MANAGER SLIVER MACHINE OPERATOR [address] [place] [address] Assigned PCP 07/17/20 Usha Simon APRN SLIVER MACHINE OPERATOR [address] [place] [address] [id number] Nurse Practitioner Neurological Surgery 01/24/24 Dangelo Salinas MD [address] [place] [address] Neurology 01/27/24 Anastasia Stearns, RN Lead Registered Mail Clerk 02/06/24 Germaine Lopez, CHW Community Health Worker Primary Care - CC 02/18/24 Robin Zepeda MD [address] [address] Assigned Neuroscience Provider 03/08/24
--- OUTSIDE RECORDS SUMMARY | 2024-05-07 18:43 | XMS_ITS | Encounter Summary ---
Author Organization [facility] Address [address] [place] [address] Care Team Providers Care Automotive Glass Specialist Name Role Phone Winston Villatoro OD Unavailable [phone] Denise Woodson Ra, APRN CARETAKER Unavailable +- [phone] Denise Woodson Ra, APRN CARETAKER Primary Care Provid er Usha Simon APRN CARETAKER Unavailable [phone] Dangelo Salinas MD Unavailable Anastasia Stearns RN Unavailable Germaine Lopez CHW Unavailable Robin Zepeda MD Unavailable [phone] Reason for Referral * Consultation (Routine: Next available opening) - Pending Review Specialty Diagnoses / Procedures Referred By Nila t Referred To Contact Genetics, Clinical Diagnoses Fibromuscular dysplasia (H24) ASD (atrial septal defect) EDS (Lizy-Danlos syndrome) Lisa Zambrano MD [address] [facility] [address] [place] [address] Referral ID Status Reason Start Date Expiration Date V isits Requested Visits Authorized [id number] Pending Review 05/01/2024 05/01/2025 1 1 Question Answer Reason for Referral: Cardiology Scheduling Instructions: [facility] will call you to coordinate your care as prescribed by your provider. If you don't hear from a direct customer service representative within 2 business days, please call [phone]. Additional Information: carries Dx of EDS , s/p ASD closed, positive thumb sign, recent cerebral angio Rt ICA dissection etc , Dural fistula etc eval further Comments We will make every effort to schedule with your recommended provider. However, to minimize your waiting time for the appointment, we may offer an appointment with an alternative provider. Please be aware that coverage of these services is subject to the terms and limitations of your health insurance plan. Call member services at your health plan with any benefit or coverage questions. [facility] will call you to coordinate your care as prescribed by your provider. If you don't hear from a direct customer service representative within 2 business days, please call [phone]. Reason for Visit * Reason Comments Consult Pt referred to [facility] b y Dr. Raul Hoyos for fibromuscular dysplasia. * Consultation (Routine: Next available opening) - Pending Review Specialty Diagnoses / Procedures Referred By Juhiac t Referred To Contact Cardiovascular Disease Diagnoses Fibromuscular dysplasia (H24) Raul Hoyos MD [address] [facility] [id number] [place] [address] Vascular Center [address] [place] [phone] Referral ID Status Reason Start Date Expiration Date V isits Requested Visits Authorized [id number] Pending Review 04/14/2024 04/14/2025 1 1 Encounter Details Date Type Department Care Team (Latest Contact Info) Description 05/01/2024 10:30 AM CDT Office Visit [facility] Kate [address] [place] [phone] Lisa Zambrano MD [address] [place] [phone] Fibromuscular dysplasia (H24) ?? on cerbral angio Rt ICA dissection noted 12/2023 at [facility] subsequent head and neck CTA negtaive (Primary Dx); Hyperlipidemia LDL goal <70; ASD (atrial septal defect) amplatzer septal occluder- serial #[id number] ( 06/2006); Cerebrovascular accident (CVA), unspecified mechanism (H) 12/2023 ? 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 Never 02/28/2024 Do you belong [...] Answer Date Recorded PHQ-2 Score 1 04/14/2024 [place] [employer] - Occupational Stress [...] in an abandoned building, in an overnight prison, or couch-surfing.) Yes 02/28/2024 Are you worried [...] Sign Reading Time Taken Comments Blood Pressure 129/76 05/01/2024 10:23 AM CDT Pulse 72 05/01/2024 10:23 AM CDT Temperature - - Respiratory Rate - - Oxygen Saturation 97% 05/01/2024 10:23 AM CDT Inhaled Oxygen Concentration - - Weight 97 kg (213 lb 12.8 oz) 05/01/2024 10:23 A M CDT Height 174 cm (5' 8.5) 05/01/2024 10:23 AM CDT Body Mass Index 32.04 05/01/2024 10:23 AM CDT documented in this encounter Patient Instructions * Patient Instructions* Lisa Zambrano MD - 05/01/2024 10:30 AM CDT Continue aspirin daily with food Continue crestor See [facility] genetics referral done Avoid neck or deep tissue massages and any type of chiropractic manipulations documented in this encounter Progress Notes * Allison Blanco RN - 05/01/2024 10:30 AM CDT Patient is here to discuss consult. Questions patient would like addressed today are: what is fibromuscular dysplasis?. Refills are needed: No Has homecare services and agency name: No Allison Blanco RN * Lisa Zambrano MD - 05/01/2024 10:30 AM CDT [facility] INITIAL VASCULAR MEDICINE CONSULT ( New Patient visit) PRIMARY HEALTH CARE PROVIDER: Denise Woodson Ra, CHANNEL DEVELOPMENT DIRECTOR,CARETAKER REFERRING HEALTH CARE PROVIDER; Raul Hoyos MD REASON FOR CONSULT: Evaluation and management of FMD? With recent history of right ICA dissection noted on cerebral angiogram December 2023. 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 She also developed seizures . She has been followed by neurology service Dr. Marisol Hui here for further evaluation and management for FMD etc.. She subsequently underwent CT of the chest abdomen pelvis and leg runoff no evidence of FMD in other arterial territories. She is taking aspirin 162 mg daily. She has a history of DJD of the cervical spine and she goes forneck massages. She underwent COL3A1 testing at [facility] which was negative in 2018 She is new to me reviewed available extensive records and recent imaging studies in the [facility] and Care Everywhere and updated chart PAST MEDICAL HISTORY Past Medical History: Diagnosis Date Acute posthemorrhagic [...] Post stroke Stroke (H) 01/17/2024 Uncomplicated asthma CURRENT MEDICATIONS Current Outpatient Medications Medication Sig Dispense Refill vitamin B complex with vitamin C (VITAMIN B COMPLEX) tablet Take 1 tablet by mouth daily acetaminophen (TYLENOL) 500 MG tablet Take 1-2 tablets (500-1,000 mg) by mouth 3 times daily as needed for mild pain or headaches albuterol (PROAIR HFA/PROVENTIL HFA/VENTOLIN HFA) 108 (90 Base) MCG/ACT inhaler Inhale 2 puffs intothe lungs every 4 hours as needed for shortness of breath / dyspnea or wheezing 1 Inhaler 3 aspirin (ASA) 325 MG EC tablet Take 1 tablet (325 mg) by mouth daily (Patient taking differently: Take 162 mg by mouth daily) 30 tablet 0 BREO ELLIPTA 200-25 MCG/INH Inhaler INHALE 1 PUFF INTO THE LUNGS DAILY 3 each 1 cetirizine (ZYRTEC) 10 MG tablet Take 10 mg by mouth daily levETIRAcetam (KEPPRA) 750 MG tablet TAKE 1 TABLET BY MOUTH TWICE A DAY (Patient taking differently: Take 325 mg by mouth 2 times daily) 56 tablet 0 Lidocaine (LIDOCARE) 4 % Patch Place 1 patch onto the skin every 24 hours To prevent lidocaine toxicity, patient should be patch free for 12 hrs daily. LORazepam (ATIVAN) 1 MG tablet Take 1/2-1 tablet daily as needed for onset of dizziness. 10 tablet 0 magnesium oxide 200 MG TABS Ok to take magnesium supplement of your preference (Patient not taking:Reported on 02/06/2024) meclizine (ANTIVERT) 25 MG tablet Take 1 tablet (25 mg) by mouth 3 times daily as needed for dizziness 20 tablet 0 methyl salicylate-menthol (ICY HOT) ointment Apply topically every 6 hours as needed (pain) psyllium (METAMUCIL) 28.3 % packet Take 1 packet by mouth daily rosuvastatin (CRESTOR) 20 MG tablet TAKE 1 TABLET (20 MG) BY MOUTH AT BEDTIME (Patient not taking: Reported on 05/01/2024) 90 tablet 0 senna-docusate (SENOKOT-S/PERICOLACE) 8.6-50 MG tablet Take 2 tablets by mouth 2 times daily as needed for constipation (Patient not taking: Reported on 02/06/2024) traZODone (DESYREL) 50 MG tablet Take 2 tablets (100 mg) by mouth At Bedtime 180 tablet 3 Current Facility-Administered Medications Medication Dose Route Frequency Provider Last Rate Last Admin sodium chloride (PF) 0.9% PF flush 3 mL 3 mL Intravenous q1 min prn 3 mL at 02/28/24 1039 PAST SURGICAL HISTORY: Past Surgical History: Procedure Laterality Date C ACOUSTIC INTELLIGENCE SPECIALIST PROCEDURE DATE: vag del. C ACOUSTIC INTELLIGENCE SPECIALIST PROCEDURE DATE: 2000 tubal ligation C ACOUSTIC INTELLIGENCE SPECIALIST PROCEDURE DATE: 1994 D&C CARDIAC SURGERY 06/2006 heart defect repair ESOPHAGOSCOPY, GASTROSCOPY, DUODENOSCOPY (EGD), COMBINED N/A 02/08/2021 Procedure: ESOPHAGOGASTRODUODENOSCOPY (EGD); Surgeon: Tuan Miller MD; Location: GI GI SURGERY 09/2020 gallbladder removed HC KNEE SCOPE,MED/LAT MENISECTOMY 08/04/13 LT HEART CATH, CLOSURE ATRIAL SEPTAL DEFECT 06/20/06 amplatzer septal occluder- serial #[id number] RW ACOUSTIC INTELLIGENCE SPECIALIST (ABSTRACTED) pneumonia several times SURGICAL PATHOLOGY EXAM 02/2012 excision of lipoma on chest wall ZZC VAGINAL HYSTERECTOMY 01/30/06 ALLERGIES Allergies Allergen Reactions Codeine GI Disturbance Other Reaction(s): epigastric pain Mold Dizziness and GI Disturbance Bupropion GI Disturbance and Other (See Comments) Diarrhea and stomach ache Erythromycin GI Disturbance FAMILY HISTORY Family History Problem Relation Age of Onset [...] of Blood Disease No family hx of VASCULAR FAMILY HISTORY 1st order relative with atherosclerotic PAD: No 1st order relative with AAA: No Family history of Familial Hyperlipidemia No Family History of Hypercoagulable state:No VASCULAR RISK FACTORS 1. Diabetes:No 2. Smoking: has never smoked. 3. 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 No Social History Narrative Not on file Social Determinants of Health Financial Resource Strain: Low Risk (02/28/2024) Financial Resource Strain Within the past 12 months, have you or your family members you live with been unable to get utilities (heat, electricity) when it was really needed?: No Food Insecurity: Low Risk (02/28/2024) Food Insecurity Within the past 12 months, did you worry that your food would run out before you got money to buy more?: No Within the past 12 months, did the food you bought just not last and you didn???t have money to getmore?: No Transportation Needs: High Risk (02/28/2024) Transportation Needs Within the past 12 months, has lack of transportation kept you from medical appointments, getting your medicines, non-medical meetings or appointments, work, or from getting things that you need?: Yes Physical Activity: Insufficiently Active (02/28/2024) Exercise Vital Sign Days of Exercise per Week: 1 day Minutes of Exercise per Session: 10 min Stress: Stress Concern Present (02/28/2024) [place] [employer] - Occupational Stress Questionnaire Feeling of Stress : To some extent Social Connections: Socially Isolated (02/28/2024) Social Connection and Isolation Panel [NHANES] Frequency of Communication with Friends and Family: Once a week Frequency of Social Gatherings with Friends and Family: Never Attends Amish Services: Never Active Member of Clubs or Organizations: No Attends Club or Organization Meetings: Never Marital Status: Interpersonal Safety: Low Risk (02/06/2024) Interpersonal Safety Do you feel physically and emotionally safe where you currently live?: Yes Within the past 12 months, have you been hit, slapped, kicked or otherwise physically hurt by someone?: No Within the past 12 months, have you been humiliated or emotionally abused in other ways by your partner or ex-partner?: No Housing Stability: Low Risk (02/28/2024) Housing Stability Do you have housing? : Yes Are you worried about losing your housing?: No ROS: General: No change in weight, sleep or appetite. Normal energy. No fever or chills Eyes: Negative for vision changes or eye problems ENT: No problems with ears, nose or throat. No difficulty swallowing. Resp: No coughing, wheezing or shortness of breath CV: No chest pains or palpitations GI: No nausea, vomiting, heartburn, abdominal pain, diarrhea, constipation or change in bowel habits : No urinary frequency or dysuria, bladder or kidney problems Musculoskeletal: Right-sided residual weakness from the stroke Neurologic: History of stroke Psychiatric: History of generalized anxiety, depression stable and also history of ADHD Heme/immune/allergy: No history of bleeding or clotting problems or anemia. No allergies or immune system problems Endocrine: No history of thyroid disease, diabetes or other endocrine disorders Skin: No rashes,worrisome lesions or skin problems Vascular: No claudication, lifestyle limiting or otherwise; no ischemic rest pain; no non-healing ulcers. No weakness, No loss of sensation Hyperextensibility of the joints Recently found right ICA dissection on cerebral angiogram EXAM: BP 129/76 (BP Location: Right arm, Patient Position: Sitting, Cuff Size: Adult Regular) Pulse 72 Ht 5' 8.5 (1.74 m) Wt 213 lb 12.8 oz (97 kg) LMP 01/07/2006 SpO2 97% BMI 32.04 kg/m?? In general, the patient is a pleasant female in no apparent distress. Neck: No carotid bruit Heart: RRR. Normal S1, S2 splits physiologically. No murmur, rub, click, or gallop. Lungs: CTA. No ronchi, wheezes, rales. No dullness to percussion. Abdomen: Soft, nontender, nondistended. No organomegaly. No AAA. No bruits. Extremities: Vascular: good palpable peripheral pulses No edema No evidence of arterial or venous insufficiency She has a passive dorsiflexion of the fifth finger more than 90 degrees Passive opposition of the thumb to the flexor aspect of the forearm bilaterally Hyperextension of elbow more than 10 degrees bilaterally Hyperextensibility of the knees more than 10 degrees bilaterally Recently found internal carotid artery dissection with possible FMD type features on cerebral angiogram Labs: LIPID RESULTS: Lab Results Component Value Date CHOL 202 (H) 07/27/2021 CHOL 238 (H) 07/27/2020 HDL 56 07/27/2021 HDL 61 07/27/2020 LDL 128 (H) 07/27/2021 LDL 150 (H) 07/27/2020 TRIG 91 07/27/2021 TRIG 136 07/27/2020 CHOLHDLRATIO 3.9 03/16/2008 LIVER ENZYME RESULTS: Lab Results Component Value Date AST 19 03/03/2024 AST 10 01/04/2021 ALT 13 03/03/2024 ALT 18 01/04/2021 CBC RESULTS: Lab Results Component Value Date WBC 7.6 03/03/2024 WBC 7.4 01/04/2021 RBC 4.84 03/03/2024 RBC 4.51 01/04/2021 HGB 14.9 03/03/2024 HGB 13.9 01/04/2021 HCT 44.0 03/03/2024 HCT 42.2 01/04/2021 MCV 91 03/03/2024 MCV 94 01/04/2021 MCH 30.8 03/03/2024 MCH 30.8 01/04/2021 MCHC 33.9 03/03/2024 MCHC 32.9 01/04/2021 RDW 12.2 03/03/2024 RDW 11.7 01/04/2021 PLT 168 03/03/2024 PLT 210 01/04/2021 BMP RESULTS: Lab Results Component Value Date NA 140 03/03/2024 NA 138 01/04/2021 POTASSIUM 5.0 03/03/2024 POTASSIUM 4.0 07/27/2021 POTASSIUM 4.3 01/04/2021 CHLORIDE 103 03/03/2024 CHLORIDE 105 07/27/2021 CHLORIDE 106 01/04/2021 CO2 27 03/03/2024 CO2 26 07/27/2021 CO2 31 01/04/2021 ANIONGAP 10 03/03/2024 ANIONGAP 8 07/27/2021 ANIONGAP 1 (L) 01/04/2021 GLC 96 03/03/2024 GLC 95 02/13/2024 GLC 95 07/27/2021 GLC 87 01/04/2021 BUN 11.4 03/03/2024 BUN 20 07/27/2021 BUN 13 01/04/2021 CR 0.81 03/03/2024 CR 0.77 01/04/2021 GFRESTIMATED 90 03/03/2024 GFRESTIMATED >60 02/04/2024 GFRESTIMATED >90 01/04/2021 GFRESTBLACK >90 01/04/2021 TIFF 9.8 03/03/2024 TIFF 8.7 01/04/2021 THYROID RESULTS: Lab Results Component Value Date TSH 3.87 02/28/2024 TSH 2.96 01/04/2021 Procedures: Reviewed recent multiple imaging studies, out side records, cerebral angio report in Care everywhere Assessment and Plan: 1. Fibromuscular dysplasia (H24) ?? on cerbral angio Rt ICA dissection noted 12/2023 at [facility] subsequent head and neck CTA negative X 2 , CTA of the chest abdomen pelvis negative for FMD in other arterial territories - Adult Genetics & Metabolism Chocolate Finisher Referral; Future 2. Hyperlipidemia LDL goal <70 3. ASD (atrial septal defect) amplatzer septal occluder- serial #[id number] ( 06/2006) - Adult Genetics & Metabolism Chocolate Finisher Referral; Future 4. Cerebrovascular accident (CVA), unspecified mechanism (H) 12/2023 ? 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 EDS (Lizy-Danlos syndrome) diagnosed at [facility] 2018 - Adult Genetics & Metabolism Chocolate Finisher Referral; Future Beighton score of 5 Recently noted ICA dissection and cerebral angiogram This is a very pleasant 48-year-old female with complex and complicated past medical and past surgical history including the left sigmoid dural aVF she underwent cerebral angiogram in December 2023 at [facility] unfortunately postprocedural stroke and noted right-sided ICA dissection and FMD changes. She underwent subsequent CT of head and neck x 2 which were negative for FMD . Subsequent CTA chest abdomen pelvis no FMD changes. She has a hyperextensibility of the joints with positive thumb sign and elbow sign. In 2018 she was diagnosed EDS at [facility]. COL3A1 test was negative. She has a 3 grownup children. No previous organ rupture or blood vessel rupture. History of ASD which was closed in 2005 at [facility]. She was also doing deep neck massages for DJD of the spine for some time Currently taking aspirin 162 mg daily and tolerating Currently followed by neurology/stroke service Given her unusual clinical situation of dural aVF, ASD, FMD changes, EDS features she will benefit getting genetic testing arrange a referral to [facility] Continue aspirin 162 mg daily with food Avoid any type of deep massages or chiropractic manipulations Avoid sudden jerky neck movements Follow-up with me virtually or office visit in 6 months 60 minutes spent on the date of the encounter doing chart review, history and exam, documentation, and further activities as noted above. The longitudinal care of plan for the above diagnoses was addressed during this visit. Due to addedcomplexity of care, we will continue to supprt Alcon A Noah and the subsequent management of this/these conditions and with ongoing continuity of care for this/these conditions. Thank you for the consultation This note was dictated by utilizing [employer] software Copy of this note to primary care physician and referring physician Lisa Zambrano MD,FAHA,FSVM,FNLA, FACP Vascular Medicine Clinical Hypertension Specialist Clinical Lipidologist documented in this encounter Plan of Treatment Upcoming Encounters Date Type Department Care Team (Late st Contact Info) Description 06/08/2024 8:30 AM CDT Office Visit [facility] [address] [place] [address] Denise Woodson Ra, CHANNEL DEVELOPMENT DIRECTOR CARETAKER [address] [place] [address] Scheduled Referrals Name Type Priority Associated Diagnoses Orde r Schedule Adult Genetics & Metabolism Chocolate Finisher Referral Referral Routine: Next available opening Fibromuscular dysplasia (H24) ?? on cerbral angio Rt ICA dissection noted 12/2023 at [facility] subsequent head and neck CTA negtaive ASD (atrial septal defect) amplatzer septal occluder- serial #[id number] ( 06/2006) EDS (Lizy-Danlos syndrome) diagnosed at [place] [address] Expected: 05/01/2024 (Approximate), Expires: 05/01/2025 documented as of this encounter Goals Goal Patient Goal Type Associated Problems Recent Progress Patient-Stated? Author I would like additional resources and support to manage my health and prevent future avoidable ED visits/hospital admissions Care Plan Increased risk of re-admission 10%( 4 3:13 PM CDT) No Anastasia Stearns, RN Note: Barriers: diagnosis of multiple, chronic, complex medical conditions, provider availability - wait time to complete appointments, etc. Strengths: motivated, engaged in care coordination Patient expressed understanding of goal: yes Action steps to achieve this goal: 1. 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 Physician In Private Practice will remain available as needed. documented as of this encounter Visit Diagnoses Diagnosis Fibromuscular dysplasia (H24) ?? on cerbral angio Rt ICA dissection noted 12/2023 at [facility] subsequent head and neck CTA negtaive- Primary Other specified disorders of arteries and arterioles Hyperlipidemia LDL goal <70 Other and unspecified hyperlipidemia ASD (atrial septal defect) amplatzer septal occluder- serial #[id number] ( 06/2006) Ostium secundum type atrial septal defect Cerebrovascular accident (CVA), unspecified mechanism (H) 12/2023 ? periprocedural EDS (Lizy-Danlos syndrome) diagnosed at [place] [address] Lizy-Danlos syndrome documented in this encounter Additional Health Concerns Active Problems Noted Date Diagnosed Date Increased risk of re-admission 02/18/2024 Assessment Noted Time PHQ-9 Depression Total Score: 5 03/17/20 24 9:45 AM CDT documented as of this encounter Care Teams Automotive Glass Specialist Relationship Specialty Start Date End Date Winston Villatoro OD [facility] [place] [address] [place] [address] PCP - Ophthalmology Ophthalmology 02/11/13 Denise Woodson Ra, APRN CARETAKER [address] [place] [address] PCP - General Family Practice 09/21/20 Denise Woodson Ra, APRN CARETAKER [address] [place] [address] Assigned PCP 07/17/20 Usha Simon APRN CARETAKER [address] [id number] [place] [address] Nurse Practitioner Neurological Surgery 01/24/24 Dangelo Salinas MD [address] [place] [address] Neurology 01/27/24 Anastasia Stearns, RN Lead Physician In Private Practice 02/06/24 Germaine Lopez, W Community Health Worker Primary Care - CC 02/18/24 Robin Zepeda MD [address] [id number] [place] [address] Assigned Neuroscience Provider 03/08/24 documented as of this encounter
--- OUTSIDE RECORDS SUMMARY | 2024-05-07 18:43 | XMS_ITS | Encounter Summary ---
Author Organization [place] Address [address] [place] [address] Care Team Providers Care Correspondence School Instructor Name Role Phone ShaunaWinston OD Unavailable [phone] Denise Woodson Ra, APRN CENTER MGR Unavailable [phone] Denise Woodson Ra, APRN CENTER MGR Primary Care Provid er Usha Simon APRN CENTER MGR Unavailable [phone] Dangelo Salinas MD Unavailable Anastasia Stearns RN Unavailable [phone] Germaine Lopez CHW Unavailable [phone] Robin Zepeda MD Unavailable [phone] Encounter Details Date Type Department Care Team (Latest Contact Info) Description 05/04/2024 Travel Social History Tobacco Use Types Packs/Day [...] Never 02/28/2024 How often do you attend jain or quaker serv ices? Never 02/28/2024 Do you belong to any clubs o r organizations such as jain groups, unions, fraternal or athletic groups, or [...] Answer Date Recorded PHQ-2 Score 2 05/05/2024 [facility] Occupat ional Health - Occupational [...] in an abandoned building, in an overnight usp, or couch-surfing.) Yes 02/28/2024 Are you worried [...] Description 06/08/2024 8:30 AM CDT Office Visit [facility] [id number] [place] [phone] Denise Woodson Ra, ENGRAVER MACHINE CENTER MGR [address] [place] [address] documented as of this encounter Goals Goal [...] Mental Health weekly - PT, OT and WATER QUALITY ASSISTANT - PCP appointment 03/17/24 - Neurology 05/05/24, [...] clinic with 24/7 after hours services available. Hand Folder will remain available as needed. documented as of this encounter Visit Diagnoses Not on filedocumented in this encounter Additional Health Concerns Active Problems Noted Date Diagnosed Date Increased risk of re-admission 02/18/2024 Assessment Noted Time PHQ-9 Depression Total Score: 5 03/17/20 24 9:45 AM CDT documented as of this encounter Care Teams Correspondence School Instructor Relationship Specialty Start Date End Date ShaunaWinston moralez OD [facility] [address] [facility] [address] [place] [address] PCP - Ophthalmology Ophthalmology 02/11/13 Denise Woodson Ra, APRN CENTER MGR [address] [place] [address] PCP - General Family Practice 09/21/20 Denise Woodson Ra, APRN CENTER MGR [address] [place] [address] Assigned PCP 07/17/20 Usha Simon APRN CENTER MGR 9 [facility], [place] [address] Nurse Practitioner Neurological Surgery 01/24/24 Dangelo Salinas MD [address] [id number] Neurology 01/27/24 Anastasia Stearns, RN Lead Hand Folder 02/06/24 Germaine Loepz, W Community Health Worker Primary Care - CC 02/18/24 Robin Zepeda MD 909 [facility], [place] [address] Assigned Neuroscience Provider 03/08/24 documented as of this encounter
--- OUTSIDE RECORDS SUMMARY | 2024-05-07 18:43 | XMS_ITS | Encounter Summary ---
Author Organization [place] Address [address] [place] [address] Care Team Providers Care Scanning Coordinator Name Role Phone ShaunaWinston OD Unavailable [phone] Denise Woodson Ra, APRN SUPERVISOR ELECTRIC MOTOR TESTING Unavailable [phone] Denise Woodson Ra, APRN SUPERVISOR ELECTRIC MOTOR TESTING Primary Care Provid er Usha Simon APRN SUPERVISOR ELECTRIC MOTOR TESTING Unavailable [phone] Dangelo Salinas MD Unavailable Anastasia Stearns RN Unavailable [phone] Germaine Lopez CHW Unavailable [phone] Robin Zepeda MD Unavailable [phone] Encounter Details Date Type Department Care Team (Latest Contact Info) Description 05/05/2024 Travel Social History Tobacco Use Types Packs/Day [...] Never 02/28/2024 How often do you attend zoroastrian or christianity serv ices? Never 02/28/2024 Do you belong [...] Answer Date Recorded PHQ-2 Score 2 05/05/2024 [facility] Occupat ional Health - Occupational Stress [...] in an abandoned building, in an overnight long term, or couch-surfing.) Yes 02/28/2024 Are you worried [...] Description 06/08/2024 8:30 AM CDT Office Visit [facility] [address] [place] [phone] Denise Woodson Ra, DIAPER FOLDER SUPERVISOR ELECTRIC MOTOR TESTING [address] [place] [address] documented as of this encounter Goals Goal [...] Mental Health weekly - PT, OT and COOK FISH AND CHIPS - PCP appointment 03/17/24 - Neurology 05/05/24, [...] clinic with 24/7 after hours services available. Dumpster Operator will remain available as needed. documented as of this encounter Visit Diagnoses Not on filedocumented in this encounter Additional Health Concerns Active Problems Noted Date Diagnosed Date Increased risk of re-admission 02/18/2024 Assessment Noted Time PHQ-9 Depression Total Score: 5 03/17/20 24 9:45 AM CDT documented as of this encounter Care Teams Scanning Coordinator Relationship Specialty Start Date End Date ShaunaWinston moralez OD [facility] [address] [facility] [address] [place] [address] PCP - Ophthalmology Ophthalmology 02/11/13 Denise Woodson Ra, APRN SUPERVISOR ELECTRIC MOTOR TESTING [address] [place] [address] PCP - General Family Practice 09/21/20 Denise Woodson Ra, APRN SUPERVISOR ELECTRIC MOTOR TESTING [address] [place] [address] Assigned PCP 07/17/20 Usha Simon APRN SUPERVISOR ELECTRIC MOTOR TESTING 9 [facility]121[place], [place] [address] Nurse Practitioner Neurological Surgery 01/24/24 Dangelo Salinas MD [address] [id number] Neurology 01/27/24 Anastasia Stearns, RN Lead Dumpster Operator 02/06/24 Germaine Lopez, W Community Health Worker Primary Care - CC 02/18/24 Robin Zepeda MD 909 [facility], [place] [address] Assigned Neuroscience Provider 03/08/24 documented as of this encounter
--- OUTSIDE RECORDS SUMMARY | 2024-05-07 18:43 | XMS_ITS | Encounter Summary ---
Author Organization [place] Address [address] [place] [address] Care Team Providers Care Hall Cleaner Name Role Phone ShaunaWinston OD Unavailable [phone] Denise Woodson Ra, APRN CARPENTER MAINTENANCE Unavailable [phone] Denise Woodson Ra, APRN CARPENTER MAINTENANCE Primary Care Provid er Usha Simon APRN CARPENTER MAINTENANCE Unavailable [phone] Dangelo Salinas MD Unavailable Anastasia Stearns RN Unavailable [phone] Germaine Lopez CHW Unavailable [phone] Robin Zepeda MD Unavailable [phone] Encounter Details Date Type Department Care Team (Latest Contact Info) Description 05/01/2024 Travel Social History Tobacco Use Types Packs/Day [...] Never 02/28/2024 How often do you attend sabianism or evangelical serv ices? Never 02/28/2024 Do you belong to any clubs o r organizations such as sabianism groups, unions, fraternal or athletic groups, or [...] Answer Date Recorded PHQ-2 Score 1 04/14/2024 [facility] of Occupat ional Health - Occupational Stress [...] Description 06/08/2024 8:30 AM CDT Office Visit [facility] [address] [place] [phone] Denise Woodson Ra, CLINICAL LAB SPECIALIST CARPENTER MAINTENANCE [address] [place] [address] documented as of this encounter Goals Goal [...] Mental Health weekly - PT, OT and HIGH SCHOOL ENGLISH TEACHER - PCP appointment 03/17/24 - Neurology 05/05/24, [...] clinic with 24/7 after hours services available. Material Mover will remain available as needed. documented as of this encounter Visit Diagnoses Not on filedocumented in this encounter Additional Health Concerns Active Problems Noted Date Diagnosed Date Increased risk of re-admission 02/18/2024 Assessment Noted Time PHQ-9 Depression Total Score: 5 03/17/20 24 9:45 AM CDT documented as of this encounter Care Teams Hall Cleaner Relationship Specialty Start Date End Date ShaunaWinston moralez OD [facility] 701 [facility] [address] [place] [address] PCP - Ophthalmology Ophthalmology 02/11/13 Denise Woodson Ra, APRN CARPENTER MAINTENANCE [address] [place] [address] PCP - General Family Practice 09/21/20 Denise Woodson Ra, APRN CARPENTER MAINTENANCE [address] [place] [address] Assigned PCP 07/17/20 Usha Simon APRN CARPENTER MAINTENANCE 9 [facility], [place] [address] Nurse Practitioner Neurological Surgery 01/24/24 Dangelo Salinas MD [address] [id number] Neurology 01/27/24 Anastasia Stearns, RN Lead Material Mover 02/06/24 Germaine Lopez, W Community Health Worker Primary Care - CC 02/18/24 Robin Zepeda MD 909 [facility], [place] [address] Assigned Neuroscience Provider 03/08/24 documented as of this encounter
--- OUTSIDE RECORDS SUMMARY | 2024-05-07 18:43 | XMS_ITS | Encounter Summary ---
Author Organization [place] Address [address] [place] [address] Care Team Providers Care Farm Machine Tender Name Role Phone Winston Villatoro OD Unavailable [phone] Denise Woodson Ra, APRN STREET SWEEPER OPERATOR Unavailable [phone] Denise Woodson Ra, APRN STREET SWEEPER OPERATOR Primary Care Provid er Usha Simon APRN STREET SWEEPER OPERATOR Unavailable [phone] Dangelo Salinas MD Unavailable Anastasia Stearns RN Unavailable Germaine Lopez CHW Unavailable Robin Zepeda MD Unavailable [phone] Encounter Details Date Type Department Care Team (Late st Contact Info) Description 05/06/2024 MyC Medical Advice [facility] Epilepsy [facility] [address], [address] [place] [phone] Rohit Barcenas MD [address] [facility] [address] [place], [place] [id number] Social History Tobacco Use Types Packs/Day Years [...] Never 02/28/2024 How often do you attend mormonism or rastafari serv ices? Never 02/28/2024 Do you belong to any clubs o r organizations such as mormonism groups, unions, fraternal or athletic groups, or [...] Answer Date Recorded PHQ-2 Score 2 05/05/2024 [facility] of Occupat ional Health [...] in an abandoned building, in an overnight fpc, or couch-surfing.) Yes 02/28/2024 Are you worried [...] AM CDT Office Visit [facility] [address] [place] [address] Denise Woodson Ra, CALCULATING MACHINE MECHANIC STREET SWEEPER OPERATOR [address] [place] [address] documented as of this encounter [...] Mental Health weekly - PT, OT and THERMITE BOMB LOADER - PCP appointment 03/17/24 - Neurology 05/05/24, [...] clinic with 08/04 after hours services available. Logistics Officer will remain available as needed. documented as of this encounter Visit Diagnoses Not on filedocumented in this encounter Additional Health Concerns Active Problems Noted Date Diagnosed Date Increased risk of re-admission 02/18/2024 Assessment Noted Time PHQ-9 Depression Total Score: 5 03/17/20 24 9:45 AM CDT documented as of this encounter Care Teams Farm Machine Tender Relationship Specialty Start Date End Date Winston Villatoro OD [facility] [address] [facility] [address] [place] [address] PCP - Ophthalmology Ophthalmology 02/11/13 Denise Woodson Ra, APRN STREET SWEEPER OPERATOR [address] [facility] [place] [address] PCP - General Family Practice 09/21/20 Denise Woodson Ra, APRN STREET SWEEPER OPERATOR [address] [place] [address] Assigned PCP 07/17/[address]sha Simon [address]N [address]RE[address] SWEEPER OPERATOR 909 [facility] [address] Nurse Practitioner Neurological Surgery 01/24/24 Dangelo Salinas MD [address] [address] Neurology 01/27/24 Anastasia Stearns, RN Lead Logistics Officer 02/06/24 Germaine Lopez, W Community Health Worker Primary Care - CC 02/18/24 Robin Zepeda MD [address] [place] [address] [address] Assigned Neuroscience Provider 03/08/24 documented as of this encounter
--- OUTSIDE RECORDS SUMMARY | 2024-05-07 18:43 | XMS_ITS | Encounter Summary ---
Author Organization [place] Address [address] [place] [address] Care Team Providers Care Medical Director Occupational Health Name Role Phone ShaunaWinston OD Unavailable Denise Woodson Ra, APRN CERAMIC PLATER Unavailable [phone] Denise Woodson Ra, APRN CERAMIC PLATER Primary Care Provid er Usha Simon APRN CERAMIC PLATER Unavailable [phone] Dangelo Salinas MD Unavailable Anastasia Stearns RN Unavailable [phone] Germaine Lopez CHW Unavailable [phone] Robin Zepeda MD Unavailable [phone] Encounter Details Date Type Department Care Team (Latest Contact Info) Description 04/30/2024 Travel Social History Tobacco Use Types Packs/Day [...] Never 02/28/2024 How often do you attend gnosticism or restorationist serv ices? Never 02/28/2024 Do you belong to any clubs o r organizations such as gnosticism groups, unions, fraternal or athletic groups, or [...] Answer Date Recorded PHQ-2 Score 1 04/14/2024 [facility] of Occupat ional Health - Occupational [...] in an abandoned building, in an overnight chcf, or couch-surfing.) Yes 02/28/2024 Are you worried [...] Description 06/08/2024 8:30 AM CDT Office Visit [facility] [address] [place] [phone] Denise Woodson Ra, APPLICATION PACKAGING SPECIALIST CERAMIC PLATER [address] [place] [address] documented as of this encounter Goals Goal [...] Mental Health weekly - PT, OT and DOUBLE NEEDLE STITCHER - PCP appointment 03/17/24 - Neurology 05/05/24, [...] with 24/7 after hours services available. Assistant Bookkeeper will remain available as needed. documented as of this encounter Visit Diagnoses Not on filedocumented in this encounter Additional Health Concerns Active Problems Noted Date Diagnosed Date Increased risk of re-admission 02/18/2024 Assessment Noted Time PHQ-9 Depression Total Score: 5 03/17/20 24 9:45 AM CDT documented as of this encounter Care Teams Medical Director Occupational Health Relationship Specialty Start Date End Date ShaunaWinston moralez OD [facility] [address] [facility] [address] [place] [address] PCP - Ophthalmology Ophthalmology 02/11/13 Denise Woodson Ra, APRN CERAMIC PLATER [address] [place] [address] PCP - General Family Practice 09/21/20 Denise Woodson Ra, APRN CERAMIC PLATER [address] [place] [address] Assigned PCP 07/17/20 Usha Simon APRN CERAMIC PLATER 9 [facility]121[place], [place] [address] Nurse Practitioner Neurological Surgery 01/24/24 Dangelo Salinas MD [address] [id number] Neurology 01/27/24 Anastasia Stearns, RN Lead Assistant Bookkeeper 02/06/24 Germaine Lopez, W Community Health Worker Primary Care - CC 02/18/24 Robin Zepeda MD 909 [facility], [place] [address] Assigned Neuroscience Provider 03/08/24 documented as of this encounter
--- OUTSIDE RECORDS SUMMARY | 2024-05-07 18:44 | XMS_ITS | Encounter Summary ---
Author Organization [place] Address [address] [place] [address] Care Team Providers Care Residential Monitor Name Role Phone Winston Villatoro OD Unavailable [phone] Denise Woodson Ra, APRN MEATMAN Unavailable + [phone] Denise Woodson Ra, APRN MEATMAN Primary Care Provid er Usha Simon APRN MEATMAN Unavailable Dangelo Salinas MD Unavailable Anastasia Stearns RN Unavailable [phone] Germaine Lopez CHW Unavailable [phone] Robin Zepeda MD Unavailable Reason for Referral * Rehab Therapy Physical Therapy (Routine: Next available opening) - Pending Review Specialty Diagnoses / Procedures Referred By Contlandon t Referred To Contact Diagnoses History of CVA (cerebrovascular accident) Raul Hoyos MD [address] [facility] [id number] [place] [address] Referral ID Status Reason Start Date Expiration Date V isits Requested Visits Authorized [id number] Pending Review 04/14/2024 04/14/2025 1 1 Question Answer Course of Action: Evaluation and Treatment Specialty Services: Per Associated Diagnosis Scheduling Instructions: [facility] will call you to coordinate your care as prescribed by your provider. If you don't hear from a retail service representative within 2 business days, please call . Additional Information: Stroke - shoulder R Comments Please be aware that coverage of these services is subject to the terms and limitations of your health insurance plan. Call member services at your health plan with any benefit or coverage questions. [facility] will call you to coordinate your care as prescribed by your provider. If you don't hear from a retail service representative within 2 business days, please call . * Consultation (Routine: Next available opening) - Pending Review Specialty Diagnoses / Procedures Referred By Contlandon t Referred To Contact Cardiovascular Disease Diagnoses Fibromuscular dysplasia (H24) Raul Hoyos MD [address] [place] [address] [facility] Narda Cardona [address] [place] [id number] Referral ID Status Reason Start Date Expiration Date V isits Requested Visits Authorized [id number] Pending Review 04/14/2024 04/14/2025 1 1 Question Answer Preferred Location: [facility] Vascular [facility] Scheduling Instructions: Please call to schedule your appointment Reason for Referral: fibromuscular dysplasia Comments Please be aware that coverage of these services is subject to the terms and limitations of your health insurance plan. Call member services at your health plan with any benefit or coverage questions. Please call to schedule your appointment Reason for Visit * Reason Comments Video Visit Stroke follow-up Encounter Details Date Type Department Care Team (Late st Contact Info) Description 04/14/2024 9:30 AM CDT Virtual Visit [facility] [address] 3rd [place] [address] Raul Hoyos MD [address] [place] [address] History of CVA (cerebrovascular accident) (Primary Dx); Fibromuscular dysplasia (H24) Social History Tobacco Use Types Packs/Day Years [...] Never 02/28/2024 How often do you attend mandaen or worship serv ices? Never 02/28/2024 Do you belong [...] Answer Date Recorded PHQ-2 Score 1 04/14/2024 [facility] of Occupat ional Health [...] in an abandoned building, in an overnight care home, or couch-surfing.) Yes 02/28/2024 Are you worried [...] this encounter Patient Instructions * Patient Instructions* Satcey Kelley RN - 04/14/2024 9:30 AM CDT Orders Placed This Encounter Procedures Vascular Medicine Referral Physical Therapy Consumer Attorney Referral No follow up with me - will follow up with PCP Stroke & Endovascular RN Care Coordinators: Stacey Kelley, RN, BSN Meche De La Cruz, RN, CNRN, SCRN If you have any questions please contact the RN Care Coordinators at [phone], option [phone]. Thank you for choosing [facility] for your health care needs. documented in this encounter Progress Notes * Raul Hoyos MD - 04/14/2024 9:30 AM CDT Virtual Visit Details Type of service: Video Visit Originating Location (pt. Location): Home Distant Location (provider location): Off-site Platform used for Video Visit: Bobby * Raul Hoyos MD - 04/14/2024 9:30 AM CDT Images from the original note were not included. [facility] [address] [address] April 14, 2024 Alcon Zamora [address] [facility] [address] TOTAL 46 Video visit: 9:33-9:59 = 26 min minutes Documentation, review: 20 minutes Ms. Alcon Zamora is a 48 year old R handed lady with a complex medical history including Ehler Danlos, L sigmoid dural AVF. This lady had an angiogram on 01/09/24 and this was complicated by luis-procedural strokes involving bilateral hemisphere L > R and involving frontal and parietal lobes, L pre and post- central gyrus and L supra-marginal gyrus. 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 Her recovery was complicated by seizures. In initially saw on 02/04/24 and noted that she had new onset of L sided numbness and symptoms suggestive of stroke. She was requested to goto the ER and from there was admitted. A brain MRI on 02/04/24 did not reveal a new acute event. The patient was subsequently discharged and was on 325 mg of aspirin and had increased bruising. She isnow taking 3X81 mg and is not having side effects. 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 She saw Dr. Zepeda for the duralAVF and has follow up with him for that. Today the patient is feeling well except for some difficulties with her R arm and especially R shoulder pain. She has OT and ACCESS COORDINATOR. I re-ordered PT so she can get this closer to home. She was taking crestor in the past but stopped due to muscle pain. I do not see a recent lipid panel in the system. Her recent BP are well controlled and she does not have a h/o HTN or DM2. ASSESSMENT / PLAN Encounter Diagnoses Name Primary? History of CVA (cerebrovascular accident) Yes Fibromuscular dysplasia (H24) This 48 year old lady with a complex medical history including Ehler Danlos has a history of luis-procedural strokes. She is making good recovery though she still has some difficulty with the R shoulder. The angiogram suggests FMD type of imaging characteristics in the R carotid. She is on aspirin 3 X 81 mg. I have advised that she can go down on the dose further if she has further bruising or bleeding. I have made a Vascular medicine referral for FMD. Orders Placed This Encounter Procedures Vascular Medicine Referral Physical Therapy Consumer Attorney Referral Brain MRI Impression: 1. No acute intracranial pathology. 2. Several scattered nonspecific T2 hyperintense foci in cerebral white matter. Differentials include sequela of prior inflammatory/infectious or vascular insults. 3. Linear T1 and FLAIR hyperintensity with associated susceptibility in the inferior left parietal lobule, likely representing a DVA. Brain MRI 02/04/24 Findings: There is no mass effect, midline [...] infarct, hydrocephalus, mass lesion or intracranial hemorrhage. Brain MRI 01/19/24 FINDINGS: Diffusion weighted imaging is negative for [...] likely due to the reported subacute infarcts. EXAM Orientation: Normal; Language normal; Attention: normal Cranial nerves: EOMI; L NLF mild flattening compared to R but moves symmetrically; no face numbness Tongue ML and shoulder shrug normal Motor: FFM normal; No drift; Strength antigravity or better in both UE reports R shoulder pain and some subjective R UE weakness Sensory: reported normal Co-ordination normal Gait: normal base stable can walk on heels toes and tandem Raul Hoyos MD documented in this encounter Nursing Notes * Eve Diaz - 04/14/2024 9:30 AM CDT Current patient location: [address] [place] [address] Is the patient currently in the state of [place]? YES Visit mode:VIDEO If the visit is dropped, the patient can be reconnected by: TELEPHONE VISIT: Phone number: Telephone Information: Will anyone else be joining the visit? NO (If patient encounters technical issues they should call [phone] :[phone]) How would you like to obtain your AVS? MyChart Are changes needed to the allergy or medication list? Pt stated no med changes Are refills needed on medications prescribed by this physician? NO Reason for visit: Video Visit (Stroke follow-up ) Eve Diaz VVF documented in this encounter Plan of Treatment Upcoming Encounters Date Type Department Care Team (Late st Contact Info) Description 06/08/2024 8:30 AM CDT Office Visit [address] [address] Denise Woodson , MANAGER OF HOSPITAL MEATMAN [address] [place], [place] [id number] Scheduled Referrals Name Type Priority Associated Diagnoses Orde r Schedule Vascular Medicine Referral Referral Routine: Next available opening Fibromuscular dysplasia (H24) Expected: 05/15/2024 (Approximate), Expires: 04/14/2025 Physical Therapy Consumer Attorney Referral Referral Routine: Next available opening History of CVA (cerebrovascular accident) Expected: 04/28/2024 (Approximate), Expires: 04/14/2025 documented as of this encounter Goals Goal [...] Mental Health weekly - PT, OT and ACCESS COORDINATOR - PCP appointment 03/17/24 - Neurology 05/05/24, [...] clinic with 24/7 after hours services available. Sludge Mill Operator will remain available as needed. documented as of this encounter Visit Diagnoses Diagnosis History of CVA (cerebrovascular accident)- Primary Transient ischemic attack (TIA), and cerebral infarction without residual deficits Fibromuscular dysplasia (H24) Other specified disorders of arteries and arterioles documented in this encounter Additional Health Concerns Active Problems Noted Date Diagnosed Date Increased risk of re-admission 02/18/2024 Assessment Noted Time PHQ-9 Depression Total Score: 5 07/02/20 24 9:45 AM CDT documented as of this encounter Care Teams Residential Monitor Relationship Specialty Start Date End Date Winston Villatoro OD [facility] [employer] [address] [place] [address] PCP - Ophthalmology Ophthalmology 02/11/13 Denise Woodson Ra, MANAGER OF HOSPITAL MEATMAN [address] [place] [address] PCP - General Family Practice 09/21/20 Denise Woodson Ra, APRN MEATMAN [address] [place] [address] Assigned PCP 07/17/20 Usha Simon APRN MEATMAN [address] [place] [address] Nurse Practitioner Neurological Surgery 01/24/24 Dangelo Salinas MD [address] [place] [address] Neurology 01/27/24 Anastasia Stearns, RN Lead Sludge Mill Operator 02/06/24 Germaine Lopez, W Community Health Worker Primary Care - CC 02/18/24 Robin Zepeda MD [address] [place] [address] Assigned Neuroscience Provider 03/08/24 documented as of this encounter
--- OUTSIDE RECORDS SUMMARY | 2024-05-07 18:44 | XMS_ITS | Encounter Summary ---
Author Organization [place] Address [address] [place] [address] Care Team Providers Care Card Seller Name Role Phone Winston Villatoro OD Unavailable [phone] Denise Woodson Ra, APRN BUTTON INSPECTOR Unavailable [phone] Denise Woodson Ra, APRN BUTTON INSPECTOR Primary Care Provid er Usha Simon APRN BUTTON INSPECTOR Unavailable [phone] Dangelo Salinas MD Unavailable Anastasia Stearns RN Unavailable [phone] Germaine Lopez CHW Unavailable [phone] Robin Zepeda MD Unavailable Reason for Visit * Rehab Therapy Integrated Services (Routine) - Authorized Specialty Diagnoses / Procedures Referred By Nila shah Referred To Contact Diagnoses Cerebrovascular accident (CVA), unspecified mechanism (H) [address] [address] Referral ID Status Reason Start Date Expiration Date V isits Requested Visits Authorized [id number] Authorized 09/16/2023 09/15/2024 365 365 Encounter Details Date Type Department Care Team (Late st Contact Info) Description 04/15/2024 8:45 AM CDT Therapy Visit [address] [phone] Denise Woodson Ra, APRN BUTTON INSPECTOR [address] [place] [address] Isabel Beaulieu, OTJah [facility] [address] [place], [place] [address] [address] Cerebrovascular accident (CVA), unspecified mechanism (H) (Primary [...] Never 02/28/2024 How often do you attend orthodoxy or sikh serv ices? Never 02/28/2024 Do you belong to any clubs o r organizations such as orthodoxy groups, unions, fraternal or athletic groups, or [...] Answer Date Recorded PHQ-2 Score 1 04/14/2024 [facility] of Occupat ional Health - Occupational Stress [...] in an abandoned building, in an overnight group home, or couch-surfing.) Yes 02/28/2024 Are you [...] Description 06/08/2024 8:30 AM CDT Office Visit [facility] [address] [place] [address] Denise Woodson Ra, PROP ATTENDANT BUTTON INSPECTOR [address] [place] [address] documented as of this encounter Goals Goal Patient Goal Type Associated Problems Recent Progress Patient-Stated? Author I would like additional resources and support to manage my health and prevent future avoidable ED visits/hospital admissions Care Plan Increased risk of re-admission 10%( 3:13 PM CDT) Anastasia Talamantes, RN Note: Barriers: diagnosis of multiple, chronic, complex medical conditions, provider availability - wait time to complete appointments, etc. Strengths: motivated, engaged in care coordination Patient expressed understanding of goal: yes Action steps to achieve this goal: 1. I will follow up with my providers as scheduled/recommended - Mental Health weekly - PT, OT and TRENCHER DRIVER - PCP appointment 03/17/24 - Neurology 05/05/24, [...] clinic with 08/04 after hours services available. Keno Dealer will remain available as needed. documented as of this encounter Visit Diagnoses Diagnosis Cerebrovascular accident (CVA), unspecified mechanism (H)- Primary documented in this encounter Additional Health Concerns Active Problems Noted Date Diagnosed Date Increased risk of re-admission 02/18/2024 Assessment Noted Time PHQ-9 Depression Total Score: 5 03/17/20 24 9:45 AM CDT documented as of this encounter Care Teams Card Seller Relationship Specialty Start Date End Date Winstno Villatoro OD [facility] [place] [address] [place] [address] PCP - Ophthalmology Ophthalmology 02/11/13 Denise Woodson Ra, PROP ATTENDANT BUTTON INSPECTOR [address] [address] [place] [address] PCP - General Family Practice 09/21/20 Denise Woodson Ra, APRN BUTTON INSPECTOR [address] [facility] [place] [address] Assigned PCP 07/17/20 Usha Simon APRN BUTTON INSPECTOR [address] [address], [place] [address] Nurse Practitioner Neurological Surgery 01/24/24 Dangelo Salinas MD [address] [place] [address] Neurology 01/27/24 Anastasia Stearns, RN Lead Keno Dealer 02/06/24 Germaine Lopez, W Community Health Worker Primary Care - CC 02/18/24 Robin Zepeda MD [address] [id number] Assigned Neuroscience Provider 03/08/24 documented as of this encounter
--- OUTSIDE RECORDS SUMMARY | 2024-05-07 18:44 | XMS_ITS | Encounter Summary ---
Author Organization [place] Address [address] [place] [address] Care Team Providers Care Preanalytics Team Lead Name Role Phone Winston Villatoro OD Unavailable [phone] Denise Woodson Ra, APRN OPHTHALMIC ASST Unavailable [phone] Denise Woodson Ra, APRN OPHTHALMIC ASST Primary Care Provid er Usha Simon APRN OPHTHALMIC ASST Unavailable [phone] Dangelo Salinas MD Unavailable Anastasia Stearns RN Unavailable [phone] Germaine Lopez CHW Unavailable [phone] Robin Zepeda MD Unavailable [phone] Reason for Visit * Rehab Therapy Integrated Services (Routine) - Authorized Specialty Diagnoses / Procedures Referred By Nila shah Referred To Contact Diagnoses Cerebrovascular accident (CVA), unspecified mechanism (H) [address] [address] Referral ID Status Reason Start Date Expiration Date V isits Requested Visits Authorized [id number] Authorized 09/16/2023 09/15/2024 365 365 Encounter Details Date Type Department Care Team (Late st Contact Info) Description 04/15/2024 9:30 AM CDT Therapy Visit [address] [phone] Danya You, AMAIRANI [address] [place] [address] [address] [place] [address] Danya Restrepo, FACILITY MAINTENANCE HELPER Cognitive communication deficit (Primary Dx); Cerebrovascular accident (CVA), unspecified mechanism (H) Social [...] Never 02/28/2024 How often do you attend baptism or mandaeism serv ices? Never 02/28/2024 Do [...] Answer Date Recorded PHQ-2 Score 1 04/14/2024 [facility] [place] of Occupat ional Health - Occupational Stress [...] in an abandoned building, in an overnight custodial, or couch-surfing.) Yes 02/28/2024 Are you worried [...] Description 06/08/2024 8:30 AM CDT Office Visit [facility] [address] [place] [address] Denise Woodson Ra, STILL OPERATOR [facility] [address] [place] [address] documented as of this encounter Goals Goal Patient Goal Type Associated Problems Recent Progress Patient-Stated? Author I would like additional resources and support to manage my health and prevent future avoidable ED visits/hospital admissions Care Plan Increased risk of re-admission 10%( 3:13 PM CDT) Anastasia Talamantes RN Note: Barriers: diagnosis of multiple, chronic, complex medical conditions, provider availability - wait time to complete appointments, etc. Strengths: motivated, engaged in care coordination Patient expressed understanding of goal: yes Action steps to achieve this goal: 1. I will follow up with my providers as scheduled/recommended - Mental Health weekly - PT, OT and FACILITY MAINTENANCE HELPER - PCP appointment 03/17/24 - Neurology 05/05/24, [...] clinic with 08/04 after hours services available. Painter Ordnance will remain available as needed. documented as of this encounter Visit Diagnoses Diagnosis Cognitive communication deficit- Primary Cerebrovascular accident (CVA), unspecified mechanism (H) documented in this encounter Additional Health Concerns Active Problems Noted Date Diagnosed Date Increased risk of re-admission 02/18/2024 Assessment Noted Time PHQ-9 Depression Total Score: 5 03/17/20 24 9:45 AM CDT documented as of this encounter Care Teams Preanalytics Team Lead Relationship Specialty Start Date End Date Winston Villatoro OD [facility] [place] [address] [place] [address] PCP - Ophthalmology Ophthalmology 02/11/13 Denise Woodson Ra, APRN OPHTHALMIC ASST [address] [address] [place] [address] PCP - General Family Practice 09/21/20 Denise Woodson Ra, APRN OPHTHALMIC ASST [address] [place] [address] Assigned PCP 07/17/20 Usha Simon APRN OPHTHALMIC ASST [address] [id number] [place], [place] [address] Nurse Practitioner Neurological Surgery 01/24/24 Dangelo Salinas MD [address] [place] [address] Neurology 01/27/24 Anastasia Stearns, RN Lead Painter Ordnance 02/06/24 Germaine Lopez, W Community Health Worker Primary Care - CC 02/18/24 Robin Zepeda MD [address] [id number] [place], [place] [id number] Assigned Neuroscience Provider 03/08/24 documented as of this encounter
--- OUTSIDE RECORDS SUMMARY | 2024-05-07 18:44 | XMS_ITS | Encounter Summary ---
Author Organization [place] Address [address] [place] [address] Care Team Providers Care Oil Fire Specialist Name Role Phone Winston Villatoro OD Unavailable [phone] Denise Woodson Ra, APRN INFORMATION COORDINATOR Unavailable [phone] Denise Woodson Ra, APRN INFORMATION COORDINATOR Primary Care Provid er Usha Simon APRN INFORMATION COORDINATOR Unavailable [phone] Dangelo Salinas MD Unavailable Anastasia Stearns RN Unavailable [phone] Germaine Lopez CHW Unavailable [phone] Robin Zepeda MD Unavailable Reason for Visit * Reason Onset Date Comments Clinic Care Coordination - Follow-up 04/02/2024 Encounter Details Date Type Department Care Team ([facility] st Contact Info) Description 04/02/[address] [facility] [address] [place] [address] Raul Hoyos MD [address] [place] [address] [id number] [place] [address] Clinic Care Coordination - Follow-up Social History Tobacco Use Types Packs/Day Years [...] Never 02/28/2024 How often do you attend evangelical or orthodox serv ices? Never 02/28/2024 Do you belong to any clubs o r organizations such as evangelical groups, unions, fraternal or athletic groups, or [...] 02/28/2024 PHQ-2 Answer Date Recorded PHQ-2 Score 0 03/17/2024 [facility] [place] of Occupat ional Health - Occupational Stress [...] in an abandoned building, in an overnight skilled nursing, or couch-surfing.) Yes 02/28/2024 Are you worried [...] encounter Miscellaneous Notes * Telephone Encounter - Liliane Cobos - 04/02/2024 12:12 PM CDT LVM and MyC sent for patient to let her know we are switching her 04/14/24 appointment form in person to virtual as Dr. Hamm only does virtual visit. Contact info provided if this does not work out Liliane Cobos on 04/02/2024 at 12:13 PM documented in this encounter Plan of Treatment Upcoming Encounters Date Type Department Care Team (Late st Contact Info) Description 06/08/2024 8:30 AM CDT Office Visit [facility] [address] [place] [address] Denise Woodson Ra, PUBLIC HEALTH ADMINISTRATOR [facility] [address] [address] [address] documented as of this encounter Goals Goal Patient Goal Type Associated Problems Recent Progress Patient-Stated? Author I would like additional resources and support to manage my health and prevent future avoidable ED visits/hospital admissions Care Plan Increased risk of re-admission 10%( 4 3:13 PM CDT) Anastasia Talamantes RN Note: Barriers: diagnosis of multiple, chronic, complex medical conditions, provider availability - wait time to complete appointments, etc. Strengths: motivated, engaged in care coordination Patient expressed understanding of goal: yes Action steps to achieve this goal: 1. I will follow up with my providers as scheduled/recommended - Mental Health weekly - PT, OT and REFRIGERATION INSTALLER - PCP appointment 03/17/24 - Neurology 05/05/24, [...] clinic with 08/04 after hours services available. Tube Worker will remain available as needed. documented as of this encounter Visit Diagnoses Not on filedocumented in this encounter Additional Health Concerns Active Problems Noted Date Diagnosed Date Increased risk of re-admission 02/18/2024 Assessment Noted Time PHQ-9 Depression Total Score: 5 03/17/20 24 9:45 AM CDT documented as of this encounter Care Teams Oil Fire Specialist Relationship Specialty Start Date End Date Winston Villatoro OD [facility] [place] [address] [place] [address] PCP - Ophthalmology Ophthalmology 02/11/13 Denise Woodson Ra, APRN INFORMATION COORDINATOR [address] [address] [address] PCP - General Family Practice 09/21/20 Denise Woodson Ra, APRN INFORMATION COORDINATOR [address] [place] [address] Assigned PCP 07/17/20 Usha Simon APRN INFORMATION COORDINATOR [address] [id number] [place], [place] [address] Nurse Practitioner Neurological Surgery 01/24/24 Dangelo Salinas MD [address] [place] [address] Neurology 01/27/24 Anastasia Stearns, RN Lead Tube Worker 02/06/24 Germaine Lopez, W Community Health Worker Primary Care - CC 02/18/24 Robin Zepeda MD [address] [facility] [place], [place] [address] Assigned Neuroscience Provider 03/08/24 documented as of this encounter
--- OUTSIDE RECORDS SUMMARY | 2024-05-07 18:44 | XMS_ITS | Encounter Summary ---
Author Organization [facility] Address [address] [place] [address]. [place] [address] Care Team Providers Care Business Planning Manager Name Role Phone Winston Villatoro OD Unavailable [phone] Denise Woodson Ra, APRN DIRECTOR OF SUSTAINABILITY Unavailable [phone] Denise Woodson Ra, APRN DIRECTOR OF SUSTAINABILITY Primary Care Provid er Usha Simon APRN DIRECTOR OF SUSTAINABILITY Unavailable [phone] Dangelo Salinas MD Unavailable Anastasia Stearns RN Unavailable [phone] Germaine Lopez CHW Unavailable [phone] Robin Zepeda MD Unavailable [phone] Reason for Visit * Reason Onset Date Comments Referral 04/14/2024 Pt referred to [facility] by Dr. Raul Hoyos for fibromuscular dysplasia. Encounter Details Date Type Department Care Team (Late st Contact Info) Description 04/14/[address] [facility] [place] [address] [place] [address] Nurse, [facility] Referral (Pt referred to [facility] by Dr. Raul Hoyos for fibromuscular dysplasia.) Social History Tobacco Use Types Packs/Day Years [...] Never 02/28/2024 How often do you attend adventist or mormonism serv ices? Never 02/28/2024 Do you belong to any clubs o r organizations such as adventist groups, unions, fraternal or athletic groups, or [...] Date Recorded PHQ-2 Score 1 04/14/2024 [facility] - Occupational Stress Questionnaire Answer Date [...] in an abandoned building, in an overnight snf, or couch-surfing.) Yes 02/28/2024 Are you worried [...] encounter Miscellaneous Notes * Telephone Encounter - Ammy Johansen - 04/14/2024 1:50 PM CDT Patient scheduled for the below. * Telephone Encounter - Allison Blanco RN - 04/14/2024 10:58 AM CDT Referral received via [employer] on 04/14/24. Pt referred to [facility] by Dr. Raul Hoyos for fibromuscular dysplasia. Routing to scheduling to coordinate the following: NEW VASCULAR PATIENT consult with Vascular Medicine Please schedule this at next available Appt note: Pt referred to [facility] by Dr. Raul Hoyos for fibromuscular dysplasia. documented in this encounter Plan of Treatment Upcoming Encounters Date Type Department Care Team (Late st Contact Info) Description 06/08/2024 8:30 AM CDT Office Visit [facility] [place] [address] [phone] Chintan Denise Ra, PATIENT ACCOUNTS CLERK DIRECTOR OF SUSTAINABILITY [address] [address] documented as of this encounter Goals Goal [...] Mental Health weekly - PT, OT and INK GRINDER - PCP appointment 03/17/24 - Neurology 05/05/24, [...] clinic with 24/ after hours services available. High School Vice Principal will remain available as needed. documented as of this encounter Visit Diagnoses Not on filedocumented in this encounter Additional Health Concerns Active Problems Noted Date Diagnosed Date Increased risk of re-admission 02/18/2024 Assessment Noted Time PHQ-9 Depression Total Score: 5 03/17/20 24 9:45 AM CDT documented as of this encounter Care Teams Business Planning Manager Relationship Specialty Start Date End Date Winston Villatoro OD [facility] [place] [address] [facility] [address] [place] [address] PCP - Ophthalmology Ophthalmology 02/11/13 Denise Woodson Ra, APRN DIRECTOR OF SUSTAINABILITY [address] [place] [address] PCP - General Family Practice 09/21/20 Denise Woodson Ra, APRN DIRECTOR OF SUSTAINABILITY [address] [place] [address] Assigned PCP 07/17/20 Usha Simon APRN DIRECTOR OF SUSTAINABILITY [address] [place] [id number] Nurse Practitioner Neurological Surgery 01/24/24 Dangelo Salinas MD [address] [place], [place] [id number] Neurology 01/27/24 Anastasia Stearns, RN Lead [employer] School Vice Principal 02/06/24 Germaine Lopez, W Community Health Worker Primary Care - CC 02/18/24 Robin Zepeda MD [address] [place] [id number] Assigned Neuroscience Provider 03/08/24 documented as of this encounter
--- OUTSIDE RECORDS SUMMARY | 2024-05-07 18:44 | XMS_ITS | Encounter Summary ---
Author Organization [facility] Address [address] [place] [address] Care Team Providers Care Zmt Operator Name Role Phone Winston Villatoro OD Unavailable [phone] Denise Woodson Ra, APRN INDUSTRIAL ELECTRICIAN Unavailable [phone] Denise Woodson Ra, APRN INDUSTRIAL ELECTRICIAN Primary Care Provid er Usha Simon APRN INDUSTRIAL ELECTRICIAN Unavailable [phone] Dangelo Salinas MD Unavailable Anastasia Stearns RN Unavailable [phone] Germaine Lopez CHW Unavailable [phone] Robin Zepeda MD Unavailable [phone] Reason for Visit * Rehab Therapy Integrated Services (Routine) - Authorized Specialty Diagnoses / Procedures Referred By Nila shah Referred To Contact Diagnoses Cerebrovascular accident (CVA), unspecified mechanism (H) [address] [address] Referral ID Status Reason Start Date Expiration Date V isits Requested Visits Authorized [id number] Authorized 09/16/2023 09/15/2024 365 365 Encounter Details Date Type Department Care Team (Late st Contact Info) Description 04/02/2024 4:15 PM CDT Therapy Visit [address] [phone] Danya You, AMAIRANI [address] [place] [address] [address] [place] [address] Delicia George, PT [address] [place] [address] Cerebrovascular accident (CVA), unspecified mechanism (H) (Primary [...] Never 02/28/2024 How often do you attend hindu or scientology serv ices? Never 02/28/2024 Do you belong to any clubs o r organizations such as hindu groups, unions, fraternal or athletic groups, or [...] Answer Date Recorded PHQ-2 Score 0 03/17/2024 [facility]at ional [facility] - Occupational Stress [...] in an abandoned building, in an overnight halfway, or couch-surfing.) Yes 02/28/2024 Are you worried [...] * Patient Instructions* Delicia George, PT - 04/02/2024 4:15 PM CDT Physical therapy notes 04/02/24: Walk one foot in front of the other - slowly. Progress to standing on one foot for as long as possible. Add brain games during each of these balance challenges. BRAIN GAMES: Do while naming things within a certain category (things at a playground, sports, types of cars, cities, states, countries), you can name things starting with each letter of the alphabet, things starting with the same letter, or as many things as you can within a certain category. Look at the zig zags during the day - start to walk while looking at the zig zags - carry them fromroom to room. Progress by moving the zig zags in patterns while walking (Z, box, [place], star). Don't push to an increase in headache but eye heaviness. Continue with videos of carpet, passenger in the car, or optokinetic lines as able, but if work is enough visual stimulation, you can take a break from videos. If work is increasing symptoms, you can take a break from exercises for a few days until your tolerance feels like it is improving. documented in this encounter Plan of Treatment Upcoming Encounters Date Type Department Care Team (Late st Contact Info) Description 06/08/2024 8:30 AM CDT Office Visit [facility] [address] [place] [address] Denise Woodson Ra, TILT TRAY DRIVER [facility] [address] [place] [address] documented as of this encounter [...] Mental Health weekly - PT, OT and ORTHOPEDIC CAST SPECIALIST - PCP appointment 03/17/24 - Neurology 05/05/24, [...] with 24/7 after hours services available. Hand Tennis Ball Coverer will remain available as needed. documented as of this encounter Visit Diagnoses Diagnosis Cerebrovascular accident (CVA), unspecified mechanism (H)- Primary documented in this encounter Additional Health Concerns Active Problems Noted Date Diagnosed Date Increased risk of re-admission 02/18/2024 Assessment Noted Time PHQ-9 Depression Total Score: 5 03/17/20 24 9:45 AM CDT documented as of this encounter Care Teams Zmt Operator Relationship Specialty Start Date End Date Winston Villatoro OD [facility] [address] [facility] [address] [place] [address] PCP - Ophthalmology Ophthalmology 02/11/13 Denise Woodson Ra, APRN INDUSTRIAL ELECTRICIAN [address] [place] [address] PCP - General Family Practice 09/21/20 Denise Woodson Ra, APRN INDUSTRIAL ELECTRICIAN [address] [place] [address] Assigned PCP 07/17/20 Usha Simon APRN INDUSTRIAL ELECTRICIAN [address] [facility] [address] Nurse Practitioner Neurological Surgery 01/24/24 Dangelo Salinas MD [address] [place] [address] Neurology 01/27/24 Anastasia Stearns, RN Lead Hand Tennis Ball Coverer 02/06/24 Germaine Lopez, W Community Health Worker Primary Care - CC 02/18/24 Robin Zepeda MD [address] [place] [address] [address] Assigned Neuroscience Provider 03/08/24 documented as of this encounter
--- OUTSIDE RECORDS SUMMARY | 2024-05-07 18:44 | XMS_ITS | Encounter Summary ---
Author Organization [facility] Address [address] [place] [address]. [place] [address] Care Team Providers Care Video Technician Name Role Phone Winston Villatoro OD Unavailable [phone] Denise Woodson Ra, APRN PEWTER FABRICATOR Unavailable + [phone] Denise Woodson Ra, APRN PEWTER FABRICATOR Primary Care Provid er Usha Simon APRN PEWTER FABRICATOR Unavailable [phone] Dangelo Salinas MD Unavailable Anastasia Stearns RN Unavailable Germaine Lopez CHW Unavailable Robin Zepeda MD Unavailable [phone] Encounter Details Date Type Department Care Team (Late st Contact Info) Description 04/08/2024 [facility] [address] [place] [address] Denise Woodson Ra, APRN PEWTER FABRICATOR [address] [place] [address] Social History Tobacco Use Types [...] Never 02/28/2024 How often do you attend adventism or rastafarian serv ices? Never 02/28/2024 Do you belong to any clubs o r organizations such as adventism groups, unions, fraternal or athletic groups, or [...] Answer Date Recorded PHQ-2 Score 1 04/14/2024 [facility] - Occupational Stress Questionnaire Answer Date [...] * Telephone Encounter - Qing Copeland - 04/13/2024 11:53 AM CDT Signed. Faxed. Mailed. Qing Cardona Lead Realtime Captioner [facility] Phoebe Gross * Telephone Encounter - Qing Copeland - 04/08/2024 1:42 PM CDT Placed form in provider's basket for review and signature. Qing Copeland Lead Realtime Captioner [facility] Phoebe Gross * Telephone Encounter - Breana Howard - 04/08/2024 1:19 PM CDT Forms/Letter Request Type of form/letter: OTHER: Workability Do we have the form/letter: Yes: Who is the form from? Patient Where did/will the form come from? Patient or family brought in When is form/letter needed by: 04/13/2024-Virtual appointment How would you like the form/letter returned: Mail Is this the correct address?: Yes [address] [facility] [address] and Patient Notified form requests are processed in 5-7 business days:Yes Could we [facility] this [facility] or would you prefer to receive a phone call?: Patient would prefer a phone call Okay to leave a detailed message?: Yes at Cell number on file: Telephone Information: Breana Howard Patient Rep. documented in this encounter Plan of Treatment Upcoming Encounters Date Type Department Care Team ([place] [facility] st Contact Info) Description 06/08/2024 8:30 AM CDT Office Visit [facility] [address] [place] [phone] Denise Woodson Ra, PHYSICIAN OFFICE SPECIALIST [facility] [address] [place] [address] documented as of this encounter Goals Goal [...] Mental Health weekly - PT, OT and SUPERVISOR ENGRAVING - PCP appointment 03/17/24 - Neurology 05/05/24, [...] clinic with 24/7 after hours services available. Piano Regulator will remain available as needed. documented as of this encounter Visit Diagnoses Not on filedocumented in this encounter Additional Health Concerns Active Problems Noted Date Diagnosed Date Increased risk of re-admission 02/18/2024 Assessment Noted Time PHQ-9 Depression Total Score: 5 03/17/20 24 9:45 AM CDT documented as of this encounter Care Teams Video Technician Relationship Specialty Start Date End Date ShaunaWinston OD [facility] [place] [address] [place] [address] PCP - Ophthalmology Ophthalmology 02/11/13 Denise Woodson Ra, APRN PEWTER FABRICATOR [address] [place] [address] PCP - General Family Practice 09/21/20 Denise Woodson Ra, APRN PEWTER FABRICATOR [address] [place] [address] Assigned PCP 07/17/20 Usha Simon APRN PEWTER FABRICATOR [address] [facility] [address] Nurse Practitioner Neurological Surgery 01/24/24 Dangelo Salinas MD [address] [place], [place] [address] Neurology 01/27/24 Anastasia Stearns, RN Lead Piano Regulator 02/06/24 Germaine Lopez, W Community Health Worker Primary Care - CC 02/18/24 Robin Zepeda MD [address] [facility] [id number] [place] [address] Assigned Neuroscience Provider 03/08/24 documented as of this encounter
--- OUTSIDE RECORDS SUMMARY | 2024-05-07 18:44 | XMS_ITS | Encounter Summary ---
Author Organization [facility] Address [address] [place] [address] Care Team Providers Care Lab Rn Name Role Phone ShaunaWinston OD Unavailable [phone] Denise Woodson Ra, APRN RETAIL SERVICES PROFESSIONAL Unavailable [phone] Denise Woodson Ra, APRN RETAIL SERVICES PROFESSIONAL Primary Care Provid er Usha Simon APRN RETAIL SERVICES PROFESSIONAL Unavailable [phone] Dangelo Salinas MD Unavailable Anastasia Stearns RN Unavailable [phone] Germaine Lopez CHW Unavailable [phone] Robin Zepeda MD Unavailable [phone] Encounter Details Date Type Department Care Team (Latest Contact Info) Description 04/15/2024 Travel Social History Tobacco Use Types Packs/Day [...] Never 02/28/2024 How often do you attend baptist or hoahaoism serv ices? Never 02/28/2024 Do you belong to any clubs o r organizations such as baptist groups, unions, fraternal or athletic groups, or [...] Answer Date Recorded PHQ-2 Score 1 04/14/2024 [facility] Occupat ional Health - [...] Description 06/08/2024 8:30 AM CDT Office Visit [facility] [address] [place] [phone] Denise Woodson Ra, SCREEN CLEANER RETAIL SERVICES PROFESSIONAL [address] [place] [address] documented as of this encounter Goals Goal [...] Mental Health weekly - PT, OT and SITE AUDITOR - PCP appointment 03/17/24 - Neurology 05/05/24, [...] clinic with 24/7 after hours services available. Tar Heater Operator will remain available as needed. documented as of this encounter Visit Diagnoses Not on filedocumented in this encounter Additional Health Concerns Active Problems Noted Date Diagnosed Date Increased risk of re-admission 02/18/2024 Assessment Noted Time PHQ-9 Depression Total Score: 5 03/17/20 24 9:45 AM CDT documented as of this encounter Care Teams Lab Rn Relationship Specialty Start Date End Date ShaunaWinston moralez OD [facility] [address] [facility] [address] [place] [address] PCP - Ophthalmology Ophthalmology 02/11/13 Denise Woodson Ra, APRN RETAIL SERVICES PROFESSIONAL [address] [place] [address] PCP - General Family Practice 09/21/20 Denise Woodson Ra, APRN RETAIL SERVICES PROFESSIONAL [address] [place] [address] Assigned PCP 07/17/20 Usha Simon APRN RETAIL SERVICES PROFESSIONAL 9 [facility], [place] [address] Nurse Practitioner Neurological Surgery 01/24/24 Dangelo Salinas MD [address] [id number] Neurology 01/27/24 Anastasia Stearns, RN Lead Tar Heater Operator 02/06/24 Germaine Lopez, W Community Health Worker Primary Care - CC 02/18/24 Robin Zepeda MD [address] [facility], [place] [address] Assigned Neuroscience Provider 03/08/24 documented as of this encounter
--- OUTSIDE RECORDS SUMMARY | 2024-05-07 18:44 | XMS_ITS | Encounter Summary ---
Author Organization [employer] Address [address] [place] [address]. [place] [address] Care Team Providers Care Quality Control Head Name Role Phone Winston Villatoro OD Unavailable [phone] Denise Woodson Ra, APRN NURSING EDUCATION SPECIALIST Unavailable + [phone] Denise Woodson Ra, APRN NURSING EDUCATION SPECIALIST Primary Care Provid er Usha Simon APRN NURSING EDUCATION SPECIALIST Unavailable + [phone] Dangelo Salinas MD Unavailable Anastasia Stearns RN Unavailable [phone] Germaine Lopez CHW Unavailable [phone] Robin Zepeda MD Unavailable [phone] Reason for Visit * Reason Comments Follow Up Encounter Details Date Type Department Care Team (Latest Contact Info) Description 04/13/2024 12:00 PM CDT Virtual Visit [facility] [address] [place] [address] Denise Woodson Ra, APRN NURSING EDUCATION SPECIALIST [address] [place] [address] Cerebrovascular accident (CVA), unspecified mechanism (H) (Primary [...] Never 02/28/2024 How often do you attend episcopalian or judaism serv ices? Never 02/28/2024 Do you belong to any clubs o r organizations such as episcopalian groups, unions, fraternal or athletic groups, or [...] Answer Date Recorded PHQ-2 Score 1 04/14/2024 [facility] of Occupat ional Health - Occupational Stress [...] in an abandoned building, in an overnight [facility], or couch-surfing.) Yes 02/28/2024 Are you worried [...] as of this encounter Progress Notes * Denise Woodson Ra, VOICE OVER ARTIST NURSING EDUCATION SPECIALIST - 04/13/2024 12:00 PM CDT Alcon is a 48 year old who is being evaluated via a billable video visit. How would you like to obtain your AVS? MyChart If the video visit is dropped, the invitation should be resent by: Text to cell phone: [phone] Will anyone else be joining your video visit? No Assessment & Plan Cerebrovascular accident (CVA), unspecified mechanism (H) Symptoms continue to improve. Paperwork completed to increase hours to 25 hours per week for the next 2 months. Follow up at that time. BMI Estimated body mass index is 34.86 kg/m?? as calculated from the following: Height as of 03/17/24: 1.676 m (5' 6). Weight as of 03/17/24: 98 kg (216 lb). Subjective Alcon is a 48 year old, presenting for the following health issues: Follow Up 04/13/2024 11:06 AM Additional Questions Roomed by reddy History of Present Illness Reason for visit: Stroke followup She eats 4 or more servings of fruits and vegetables daily.She consumes 0 sweetened beverage(s) daily.She exercises with enough effort to increase her heart rate 20 to 29 minutes per day. She exercises with enough effort to increase her heart rate 4 days per week. She is taking medications regularly. Doing well. Working with restrictions as planned. She notes she is able to work up to 2.5 hours per day without symptoms. She has noticed more fatigue and headaches, but these are improving week by week. She is interested in working 25 hours per week for the upcoming months while symptoms continue to improve. Review of Systems Constitutional, HEENT, cardiovascular, pulmonary, gi and gu systems are negative, except as otherwise noted. Objective Vitals: No vitals were obtained today due to virtual visit. Physical Exam GENERAL: alert and no distress EYES: Eyes grossly normal to inspection. No discharge or erythema, or obvious scleral/conjunctival abnormalities. RESP: No audible wheeze, cough, or visible cyanosis. SKIN: Visible skin clear. No significant rash, abnormal pigmentation or lesions. NEURO: Cranial nerves grossly intact. Mentation and speech appropriate for age. PSYCH: Appropriate affect, tone, and pace of words Video-Visit Details Type of service: Video Visit Originating Location (pt. Location): Home Distant Location (provider location): On-site Platform used for Video Visit: Bobby Signed Electronically by: Denise Woodson APRN CNP documented in this encounter Plan of Treatment Upcoming Encounters Date Type Department Care Team (Late st Contact Info) Description 06/08/2024 8:30 AM CDT Office Visit [facility] [address] [place] [address] Denise Woodson Ra, APRN CNP [address] [place] [address] documented as of this encounter [...] Mental Health weekly - PT, OT and WHISTLE PUNK - PCP appointment 03/17/24 - Neurology 05/05/24, [...] clinic with 08/04 after hours services available. Wood Floor Layer will remain available as needed. documented as of this encounter Visit Diagnoses Diagnosis Cerebrovascular accident (CVA), unspecified mechanism (H)- Primary documented in this encounter Additional Health Concerns Active Problems Noted Date Diagnosed Date Increased risk of re-admission 02/18/2024 Assessment Noted Time PHQ-9 Depression Total Score: 5 03/17/20 24 9:45 AM CDT documented as of this encounter Care Teams Quality Control Head Relationship Specialty Start Date End Date Winston Villatoro OD [facility] [address] [place] [address] PCP - Ophthalmology Ophthalmology 02/11/13 Denise Woodson Ra, APRN NURSING EDUCATION SPECIALIST [address] [place] [address] PCP - General Family Practice 09/21/20 Denise Woodson Ra, APRN NURSING EDUCATION SPECIALIST [address] [place] [address] Assigned PCP 07/17/20 Usha Simon APRN NURSING EDUCATION SPECIALIST 909 [facility] [address] Nurse Practitioner Neurological Surgery 01/24/24 Dangelo Salinas MD [address] [place] [address] Neurology 01/27/24 Anastasia Stearns, RN Lead Wood Floor Layer 02/06/24 Germaine Lopez, CHW Community Health Worker Primary Care - CC 02/18/24 Robin Zepeda MD 9[address] [facility]121[place] [address] Assigned Neuroscience Provider 03/08/24 documented as of this encounter
--- OUTSIDE RECORDS SUMMARY | 2024-05-07 18:44 | XMS_ITS | Encounter Summary ---
Author Organization [place] Address [address] [place] [address] Care Team Providers Care Generator Repairer Name Role Phone ShaunaWinston OD Unavailable [phone] Denise Woodson Ra, APRN GEOPHYSICS PROFESSOR Unavailable [phone] Denise Woodson Ra, APRN GEOPHYSICS PROFESSOR Primary Care Provid er Usha Simon APRN GEOPHYSICS PROFESSOR Unavailable [phone] Dangelo Salinas MD Unavailable Anastasia Stearns RN Unavailable [phone] Gemraine Lopez CHW Unavailable [phone] Robin Zepeda MD Unavailable [phone] Encounter Details Date Type Department Care Team (Latest Contact Info) Description 04/14/2024 Travel Social History Tobacco Use Types Packs/Day [...] Never 02/28/2024 How often do you attend protestant or denominational serv ices? Never 02/28/2024 Do you belong to any clubs o r organizations such as protestant groups, unions, fraternal or athletic groups, or [...] Answer Date Recorded PHQ-2 Score 1 04/14/2024 [facility] of Occupat ional Health - Occupational Stress [...] Description 06/08/2024 8:30 AM CDT Office Visit [facility] [address] [place] [address] Denise Woodson Ra, STERILE PROCESSING TECH GEOPHYSICS PROFESSOR [address] [place] [address] documented as of this encounter Goals Goal [...] Mental Health weekly - PT, OT and ICT SYSTEMS TEST ENGINEER - PCP appointment 03/17/24 - Neurology 05/05/24, [...] clinic with 24/7 after hours services available. Wind Instrument Repairer will remain available as needed. documented as of this encounter Visit Diagnoses Not on filedocumented in this encounter Additional Health Concerns Active Problems Noted Date Diagnosed Date Increased risk of re-admission 02/18/2024 Assessment Noted Time PHQ-9 Depression Total Score: 5 03/17/20 24 9:45 AM CDT documented as of this encounter Care Teams Generator Repairer Relationship Specialty Start Date End Date ShaunaWinston moralez OD [facility] [address] [facility] [address] [place] [address] PCP - Ophthalmology Ophthalmology 02/11/13 Denise Woodson Ra, APRN GEOPHYSICS PROFESSOR [address] [place] [address] PCP - General Family Practice 09/21/20 Denise Woodson Ra, APRN GEOPHYSICS PROFESSOR [address] [place] [address] Assigned PCP 07/17/20 Usha Simon APRN GEOPHYSICS PROFESSOR 9 [facility]121[place], [place] [address] Nurse Practitioner Neurological Surgery 01/24/24 Dangelo Salinas MD [address] [id number] Neurology 01/27/24 Anastasia Stearns, RN Lead Wind Instrument Repairer 02/06/24 Germaine Lopez, W Community Health Worker Primary Care - CC 02/18/24 Robin Zepeda MD 909 [facility], [place] [address] Assigned Neuroscience Provider 03/08/24 documented as of this encounter
--- OUTSIDE RECORDS SUMMARY | 2024-05-07 18:44 | XMS_ITS | Encounter Summary ---
Author Organization [place] Address [address] [place] [address] Care Team Providers Care Manager Drug Name Role Phone Winston Villatoro OD Unavailable [phone] Denise oWodson Ra, APRN SPINE SPECIALIST Unavailable [phone] Denise Woodson Ra, APRN SPINE SPECIALIST Primary Care Provid er Usha Simon APRN SPINE SPECIALIST Unavailable [phone] Dangelo Salinas MD Unavailable Anastasia Stearns RN Unavailable [phone] Germaine Lopez CHW Unavailable [phone] Robin Zepeda MD Unavailable [phone] Reason for Visit * Rehab Therapy Integrated Services (Routine) - Authorized Specialty Diagnoses / Procedures Referred By Nila shah Referred To Contact Diagnoses Cerebrovascular accident (CVA), unspecified mechanism (H) [address] [address] Referral ID Status Reason Start Date Expiration Date V isits Requested Visits Authorized [id number] Authorized 09/16/2023 09/15/2024 365 365 Encounter Details Date Type Department Care Team (Late st Contact Info) Description 04/02/2024 2:15 PM CDT Therapy Visit [address] [id number] Danya You, AMAIRANI [address] [place] [address] [address] [place] [address] Isabel Beaulieu, OTR [address] [address] Cerebrovascular accident (CVA), unspecified mechanism (H) (Primary [...] Never 02/28/2024 How often do you attend nondenominational or latter day serv ices? Never 02/28/2024 Do you belong [...] Answer Date Recorded PHQ-2 Score 0 03/17/2024 [facility] of Occupat ional Health - Occupational Stress [...] Description 06/08/2024 8:30 AM CDT Office Visit [facility] [address] [place] [address] Denise Woodson Ra, MOTOR VEHICLE COMPLIANCE ANALYST SPINE SPECIALIST [address] [address] [address] documented as of this encounter Goals Goal [...] Mental Health weekly - PT, OT and CLEAN ROOM ASSEMBLER - PCP appointment 03/17/24 - Neurology 05/05/24, [...] clinic with 08/04 after hours services available. Log Getter will remain available as needed. documented as of this encounter Visit Diagnoses Diagnosis Cerebrovascular accident (CVA), unspecified mechanism (H)- Primary documented in this encounter Additional Health Concerns Active Problems Noted Date Diagnosed Date Increased risk of re-admission 02/18/2024 Assessment Noted Time PHQ-9 Depression Total Score: 5 03/17/20 24 9:45 AM CDT documented as of this encounter Care Teams Manager Drug Relationship Specialty Start Date End Date Winston Villatoro OD [facility] [place] [address] [place] [address] PCP - Ophthalmology Ophthalmology 02/11/13 Denise Woodson Ra, MOTOR VEHICLE COMPLIANCE ANALYST SPINE SPECIALIST [address] [address] PCP - General Family Practice 09/21/20 Denise Woodson Ra, APRN SPINE SPECIALIST [address] [facility] [address] Assigned PCP 07/17/20 Usha Simon APRN SPINE SPECIALIST [id number], [place] [address] Nurse Practitioner Neurological Surgery 01/24/24 Dangelo Salinas MD [address] [place] [address] Neurology 01/27/24 Anastasia Stearns, RN Lead Log Getter 02/06/24 Germaine Lopez, W Community Health Worker Primary Care - CC 02/18/24 Robin Zepeda MD [address] [id number], [place] [address] Assigned Neuroscience Provider 03/08/24 documented as of this encounter
--- OUTSIDE RECORDS SUMMARY | 2024-05-07 18:44 | XMS_ITS | Encounter Summary ---
Author Organization [place] Address [address] [place] [address] Care Team Providers Care Explosive Technician Name Role Phone ShaunaWinston OD Unavailable [phone] Denise Woodson Ra, APRN ACTIVITY LEADER Unavailable [phone] Denise Woodson Ra, APRN ACTIVITY LEADER Primary Care Provid er Usha Simon APRN ACTIVITY LEADER Unavailable [phone] Dangelo Salinas MD Unavailable Anastasia Stearns RN Unavailable [phone] Germaine Lopez CHW Unavailable [phone] Robin Zepeda MD Unavailable [phone] Encounter Details Date Type Department Care Team (Latest Contact Info) Description 04/28/2024 Travel Social History Tobacco Use Types Packs/Day [...] Never 02/28/2024 How often do you attend buddhism or buddhist serv ices? Never 02/28/2024 Do you belong to any clubs o r organizations such as buddhism groups, unions, fraternal or athletic groups, or [...] Answer Date Recorded PHQ-2 Score 1 04/14/2024 [facility] of Occupat ional Health [...] Description 06/08/2024 8:30 AM CDT Office Visit [facility] [address] [place] [address] Denise Woodson Ra, DEAN OF ADMISSIONS ACTIVITY LEADER [address] [place] [address] documented as of this encounter Goals Goal [...] Mental Health weekly - PT, OT and INSTRUMENT OPERATOR - PCP appointment 03/17/24 - Neurology [...] clinic with 24/7 after hours services available. Transplant Case Manager will remain available as needed. documented as of this encounter Visit Diagnoses Not on filedocumented in this encounter Additional Health Concerns Active Problems Noted Date Diagnosed Date Increased risk of re-admission 02/18/2024 Assessment Noted Time PHQ-9 Depression Total Score: 5 03/17/20 24 9:45 AM CDT documented as of this encounter Care Teams Explosive Technician Relationship Specialty Start Date End Date ShaunaWinston moralez OD [facility] 701 [facility] [address] [place] [address] PCP - Ophthalmology Ophthalmology 02/11/13 Denise Woodson Ra, APRN ACTIVITY LEADER [address] [place] [address] PCP - General Family Practice 09/21/20 Denise Woodson Ra, APRN ACTIVITY LEADER [address] [place] [address] Assigned PCP 07/17/20 Usha Simon APRN ACTIVITY LEADER 9 [facility]121[place], [place] [address] Nurse Practitioner Neurological Surgery 01/24/24 Dangelo Salinas MD [address] [id number] Neurology 01/27/24 Anastasia Stearns, RN Lead Transplant Case Manager 02/06/24 Germaine Lopez, W Community Health Worker Primary Care - CC 02/18/24 Robin Zepeda MD 909 [facility]121[place] [address] Assigned Neuroscience Provider 03/08/24 documented as of this encounter
--- OUTSIDE RECORDS SUMMARY | 2024-05-07 18:44 | XMS_ITS | Encounter Summary ---
Author Organization [place] Address [address] [place] [address]. [place] [address] Care Team Providers Care Scientific Diver Name Role Phone Winston Villatoro OD Unavailable [phone] Denise Woodson Ra, APRN THEATRICAL TROUPER Unavailable [phone] Denise Woodson Ra, APRN THEATRICAL TROUPER Primary Care Provid er Usha Simon APRN THEATRICAL TROUPER Unavailable Dangelo Salinas MD Unavailable Anastasia Stearns RN Unavailable [phone] Germaine Lopez CHW Unavailable Robin Zepeda MD Unavailable [phone] Reason for Visit * Reason Comments Medication Refill Encounter Details Date Type Department Care Team (Late st Contact Info) Description 04/27/2024 [facility] [address] [place] [address] Denise Woodson Ra, APRN THEATRICAL TROUPER [address] [place] [address] Medication Refill Social History Tobacco [...] Never 02/28/2024 How often do you attend samaritan or jehovah's witness serv ices? Never 02/28/2024 Do you belong [...] Answer Date Recorded PHQ-2 Score 1 04/14/2024 [facility] of Occupat ional Health - [...] in an abandoned building, in an overnight long-term, or couch-surfing.) Yes 02/28/2024 Are you worried [...] Telephone Encounter - Aliya Díaz RN - 04/27/2024 4:53 PM CDT Patient is still taking, has neuro appointment next week. She has enough medication to last until this appointment. She said ok to hold off on refilling at this time. Aliya Díaz RN on 04/27/2024 at 4:54 PM * Telephone Encounter - Martina Huynh RN - 04/27/2024 4:13 PM CDT Called the pt and left a message to call us back. * Telephone Encounter - Denise Woodson Ra, BARRERA HUBBARD - 04/27/2024 12:59 PM CDT Can we check with the pt- I don't see anything mentioned by neurology. Is she remaining on this med? CHIKIS documented in this encounter Plan of Treatment Upcoming Encounters Date Type Department Care Team (Late st Contact Info) Description 06/08/2024 8:30 AM CDT Office Visit [facility] [address] [place] [address] Denise Woodson Ra, BARRERA THEATRICAL TROUPER [address] [place], [place] [id number] documented as of this encounter Goals Goal [...] Mental Health weekly - PT, OT and TYPECASTING MACHINE OPERATOR - PCP appointment 03/17/24 - [...] clinic with / after hours services available. Side Stitching Machine Operator will remain available as needed. documented as of this encounter Visit Diagnoses Diagnosis History of seizure documented in this encounter Additional Health Concerns Active Problems Noted Date Diagnosed Date Increased risk of re-admission 02/18/2024 Assessment Noted Time PHQ-9 Depression Total Score: 5 03/17/20 9:45 AM CDT documented as of this encounter Care Teams Scientific Diver Relationship Specialty Start Date End Date Winston Villatoro OD [facility] [place] [address] [place] [address] PCP - Ophthalmology Ophthalmology 02/11/13 Denise Woodson Ra DIGITAL ACCOUNT EXECUTIVE THEATRICAL TROUPER [address] [place] [address] PCP - General Family Practice 09/21/20 Denise Woodson Ra DIGITAL ACCOUNT EXECUTIVE THEATRICAL TROUPER [address] [place] [address] Assigned PCP 07/17/20 Usha Simon APRN THEATRICAL TROUPER [address] [place] [address] Nurse Practitioner Neurological Surgery 01/24/24 Dangelo Salinas MD [address] [place] [address] Neurology 01/27/24 Anastasia Stearns, RN Lead Side Stitching Machine Operator 02/06/24 Germaine Lopez, W Community Health Worker Primary Care - CC 02/18/24 Robin Zepeda MD [address] [place] [address] Assigned Neuroscience Provider 03/08/24 documented as of this encounter
--- OUTSIDE RECORDS SUMMARY | 2024-05-07 18:44 | XMS_ITS | Encounter Summary ---
Author Organization [place] Address [address] [place] [address] Care Team Providers Care Bush Regenerator Name Role Phone ShaunaWinston OD Unavailable [phone] Denise Woodson Ra, APRN FOUNDER AND PRESIDENT Unavailable [phone] Denise Woodson Ra, APRN FOUNDER AND PRESIDENT Primary Care Provid er Usha Simon APRN FOUNDER AND PRESIDENT Unavailable [phone] Dangelo Salinas MD Unavailable Anastasia Stearns RN Unavailable [phone] Germaine Lopez CHW Unavailable [phone] Robin Zepeda MD Unavailable Encounter Details Date Type Department Care Team (Latest Contact Info) Description 04/01/2024 Travel Social History Tobacco Use Types Packs/Day [...] Never 02/28/2024 How often do you attend temple or baptist serv ices? Never 02/28/2024 Do you belong [...] Answer Date Recorded PHQ-2 Score 0 03/17/2024 [facility] of Occupat ional Health - [...] in an abandoned building, in an overnight retirement, or couch-surfing.) Yes 02/28/2024 Are you worried [...] Description 06/08/2024 8:30 AM CDT Office Visit [facility] [address] [place] [address] Denise Woodson Ra, AUTOMOBILE MECHANIC RADIATOR FOUNDER AND PRESIDENT [address] [place] [address] documented as of this encounter Goals Goal [...] Mental Health weekly - PT, OT and TRACK MECHANIC - PCP appointment 03/17/24 - Neurology 05/05/24, [...] clinic with 24/7 after hours services available. Garment Alteration Examiner will remain available as needed. documented as of this encounter Visit Diagnoses Not on filedocumented in this encounter Additional Health Concerns Active Problems Noted Date Diagnosed Date Increased risk of re-admission 02/18/2024 Assessment Noted Time PHQ-9 Depression Total Score: 5 03/17/20 24 9:45 AM CDT documented as of this encounter Care Teams Bush Regenerator Relationship Specialty Start Date End Date ShaunaWinston moralez OD [facility] 701 [facility] [address] [place] [address] PCP - Ophthalmology Ophthalmology 02/11/13 Denise Woodson Ra, APRN FOUNDER AND PRESIDENT [address] [place] [address] PCP - General Family Practice 09/21/20 Denise Woodson Ra, APRN FOUNDER AND PRESIDENT [address] [place] [address] Assigned PCP 07/17/20 Usha Simon APRN FOUNDER AND PRESIDENT 9 [facility]121[place], [place] [address] Nurse Practitioner Neurological Surgery 01/24/24 Dangelo Salinas MD [address] [id number] Neurology 01/27/24 Anastasia Stearns, RN Lead Garment Alteration Examiner 02/06/24 Germaine Lopez, W Community Health Worker Primary Care - CC 02/18/24 Robin Zepeda MD 909 [facility]121[place] [address] Assigned Neuroscience Provider 03/08/24 documented as of this encounter
--- OUTSIDE RECORDS SUMMARY | 2024-05-07 18:44 | XMS_ITS | Encounter Summary ---
Author Organization [place] Address [address] [place] [address] Care Team Providers Care Emergency Nurse Name Role Phone ShaunaWinston OD Unavailable Denise Woodson Ra, APRN RV REPAIRER Unavailable [phone] Denise Woodson Ra, APRN RV REPAIRER Primary Care Provid er Usha Simon APRN RV REPAIRER Unavailable [phone] Dangelo Salinas MD Unavailable Anastasia Stearns RN Unavailable [phone] Germaine Lopez CHW Unavailable [phone] Robin Zepeda MD Unavailable [phone] Encounter Details Date Type Department Care Team (Late st Contact Info) Description 04/06/2024 [facility] Medical Advice Initial Department [facility] Social History Tobacco Use [...] Never 02/28/2024 How often do you attend restorationism or hoahaoism serv ices? Never 02/28/2024 Do you belong to any clubs o r organizations such as restorationism groups, unions, fraternal or athletic groups, or [...] Answer Date Recorded PHQ-2 Score 0 03/17/2024 [facility] of Occupat ional Health - [...] Description 06/08/2024 8:30 AM CDT Office Visit [facility] [address] [place] [address] Denise Woodson Ra, PLATE MAKER ZINC RV REPAIRER [address] [place], [place] [address] documented as of this encounter Goals Goal [...] Mental Health weekly - PT, OT and SERVICE CAPTAIN - PCP appointment 03/17/24 - Neurology 05/05/24, [...] clinic with 24/7 after hours services available. Ground Equipment Mechanic will remain available as needed. documented as of this encounter Visit Diagnoses Not on filedocumented in this encounter Additional Health Concerns Active Problems Noted Date Diagnosed Date Increased risk of re-admission 02/18/2024 Assessment Noted Time PHQ-9 Depression Total Score: 5 03/17/20 24 9:45 AM CDT documented as of this encounter Care Teams Emergency Nurse Relationship Specialty Start Date End Date Winston Villatoro OD [facility] 701 [facility] [address] [place] [address] PCP - Ophthalmology Ophthalmology 02/11/13 Denise Woodson Ra, APRN RV REPAIRER [address] [place] [address] PCP - General Family Practice 09/21/20 Denise Woodson Ra, APRN RV REPAIRER [address] [facility] [place] [address] Assigned PCP 07/17/20 Usha Simon APRN RV REPAIRER 909 [facility] [place] [address] Nurse Practitioner Neurological Surgery 01/24/24 Dangelo Salinas MD [address] [facility] [address] [facility] [address] [place], [place] [phone] Neurology 01/27/24 Anastasia Stearns, RN Lead Ground Equipment Mechanic 02/06/24 Germaine Lopez, CHW Community Health Worker Primary Care - CC 02/18/24 Robin Zepeda MD [address] [place], [place] [address] [address] Assigned Neuroscience Provider 03/08/24 documented as of this encounter
--- OUTSIDE RECORDS SUMMARY | 2024-05-07 18:44 | XMS_ITS | Encounter Summary ---
Author Organization [place] Address [address] [place] [address] Care Team Providers Care Auto Customize Painter Name Role Phone ShaunaWinston OD Unavailable [phone] Denise Woodson Ra, APRN WELT DRAWER Unavailable [phone] Denise Woodson Ra, APRN WELT DRAWER Primary Care Provid er Usha Simon APRN WELT DRAWER Unavailable [phone] Dangelo Salinas MD Unavailable Anastasia Stearns RN Unavailable [phone] Germaine Lopez CHW Unavailable [phone] Robin Zepeda MD Unavailable [phone] Encounter Details Date Type Department Care Team (Latest Contact Info) Description 04/02/2024 Travel Social History Tobacco Use Types Packs/Day [...] Never 02/28/2024 How often do you attend episcopal or catholic serv ices? Never 02/28/2024 Do you belong to any clubs o r organizations such as episcopal groups, unions, fraternal or athletic groups, or [...] Answer Date Recorded PHQ-2 Score 0 03/17/2024 [facility] of Occupat ional Health - Occupational [...] Description 06/08/2024 8:30 AM CDT Office Visit [facility] [address] [place] [address] Denise Woodson Ra, CORRECTIONAL SUPERVISOR LIEUTENANT WELT DRAWER [address] [place] [address] documented as of this encounter Goals Goal [...] Mental Health weekly - PT, OT and PROP WORKER - PCP appointment 03/17/24 - Neurology 05/05/24, [...] clinic with 24/7 after hours services available. Consumer Safety Officer will remain available as needed. documented as of this encounter Visit Diagnoses Not on filedocumented in this encounter Additional Health Concerns Active Problems Noted Date Diagnosed Date Increased risk of re-admission 02/18/2024 Assessment Noted Time PHQ-9 Depression Total Score: 5 03/17/20 24 9:45 AM CDT documented as of this encounter Care Teams Auto Customize Painter Relationship Specialty Start Date End Date ShaunaWinston moralez OD [facility] 701 [facility] [address] [place] [address] PCP - Ophthalmology Ophthalmology 02/11/13 Denise Woodson Ra, APRN WELT DRAWER [address] [place] [address] PCP - General Family Practice 09/21/20 Denise Woodson Ra, APRN WELT DRAWER [address] [place] [address] Assigned PCP 07/17/20 Usha Simon APRN WELT DRAWER [address] [facility], [place] [address] Nurse Practitioner Neurological Surgery 01/24/24 Dangelo Salinas MD [address] [id number] Neurology 01/27/24 Anastasia Stearns, RN Lead Consumer Safety Officer 02/06/24 Germaine Lopez, W Community Health Worker Primary Care - CC 02/18/24 Robin Zepeda MD [address] [facility] [address] Assigned Neuroscience Provider 03/08/24 documented as of this encounter
--- OUTSIDE RECORDS SUMMARY | 2024-05-07 18:44 | XMS_ITS | Encounter Summary ---
Author Organization [facility] Address [address] [place] [address] Care Team Providers Care Furniture Fabricator Name Role Phone Winston Villatoro OD Unavailable [phone] Denise Woodson Ra, APRN HOROLOGIST Unavailable [phone] Denise Wodoson Ra, APRN HOROLOGIST Primary Care Provid er Usha Simon APRN HOROLOGIST Unavailable [phone] Dangelo Salinas MD Unavailable Anastasia Stearns RN Unavailable [phone] Germaine Lopez CHW Unavailable [phone] Robin Zepeda MD Unavailable [phone] Encounter Details Date Type Department Care Team (Late st Contact Info) Description 04/02/2024 MyC Medical Advice [facility] [address] [place] [address] Liliane Cobos Social History Tobacco Use Types Packs/Day Years [...] Never 02/28/2024 How often do you attend mosque or gnosticism serv ices? Never 02/28/2024 Do you belong [...] Date Recorded PHQ-2 Score 0 03/17/2024 [facility] - Occupational Stress Questionnaire Answer [...] AM CDT Office Visit [facility] [address] [place] [phone] Denise Woodson Ra, VICE PRESIDENT PLANNING HOROLOGIST [address] [place] [address] documented as of this encounter Goals Goal [...] Mental Health weekly - PT, OT and TRAIN DISPATCHER - PCP appointment 03/17/24 - Neurology 05/05/24, [...] clinic with 24/7 after hours services available. Dehydrator will remain available as needed. documented as of this encounter Visit Diagnoses Not on filedocumented in this encounter Additional Health Concerns Active Problems Noted Date Diagnosed Date Increased risk of re-admission 02/18/2024 Assessment Noted Time PHQ-9 Depression Total Score: 5 03/17/20 24 9:45 AM CDT documented as of this encounter Care Teams Furniture Fabricator Relationship Specialty Start Date End Date Winston Villatoro OD [facility] [address] [facility] [address] [place] [address] PCP - Ophthalmology Ophthalmology 02/11/13 Denise Woodson Ra, APRN HOROLOGIST [address] [place] [address] PCP - General Family Practice 09/21/20 Denise Woodson Ra, APRN HOROLOGIST [address] [place] [address] Assigned PCP 07/17/20 Usha Simon APRN HOROLOGIST [address] [facility] [id number] [place] [address] Nurse Practitioner Neurological Surgery 01/24/24 Dangelo Salinas MD [address] [place] [address] Neurology 01/27/24 Anastasia Stearns, RN Lead Dehydrator 02/06/24 Germaine Lopez, CHW Community Health Worker Primary Care - CC 02/18/24 Robin Zepeda MD [id number] [place] [address] Assigned Neuroscience Provider 03/08/24 documented as of this encounter
--- OUTSIDE RECORDS SUMMARY | 2024-05-07 18:44 | XMS_ITS | Encounter Summary ---
Author Organization [place] Address [address] [place] [address] Care Team Providers Care Clam Grader Name Role Phone Winston Villatoro OD Unavailable [phone] Denise Woodson Ra, APRN SALES ASSISTANT Unavailable [phone] Denise Woodson Ra, APRN SALES ASSISTANT Primary Care Provid er Usha Simon APRN SALES ASSISTANT Unavailable [phone] Dangelo Salinas MD Unavailable Anastasia Stearns RN Unavailable Germaine Lopez CHW Unavailable [phone] Robin Zepeda MD Unavailable [phone] Reason for Visit * Rehab Therapy Integrated Services (Routine) - Authorized Specialty Diagnoses / Procedures Referred By Nila shah Referred To Contact Diagnoses Cerebrovascular accident (CVA), unspecified mechanism (H) [address] [address] Referral ID Status Reason Start Date Expiration Date V isits Requested Visits Authorized [id number] Authorized 09/16/2023 09/15/2024 365 365 Encounter Details Date Type Department Care Team (Late st Contact Info) Description 04/02/2024 3:15 PM CDT Therapy Visit [address] [phone] Danya You, AMAIRANI [address] [place] [address] [address] [place] [address] Charis Chacon, JUAN [facility] [address] [place] [address] Cognitive communication deficit (Primary Dx); Cerebrovascular accident [...] Never 02/28/2024 How often do you attend jew or restoration serv ices? Never 02/28/2024 Do you belong to any clubs o r organizations such as jew groups, unions, fraternal or athletic groups, or [...] Answer Date Recorded PHQ-2 Score 0 03/17/2024 [facility] of Occupat ional Health - Occupational Stress [...] in an abandoned building, in an overnight senior living, or couch-surfing.) Yes 02/28/2024 Are you worried [...] Description 06/08/2024 8:30 AM CDT Office Visit [facility] [address] [place] [address] Denise Woodson Ra, BARRERA SALES ASSISTANT [address] [place] [address] documented as of this encounter Goals Goal [...] Mental Health weekly - PT, OT and SENIOR ACCOUNTING ASSOCIATE - PCP appointment 03/17/24 - Neurology 05/05/24, [...] clinic with 08/04 after hours services available. Rasper Machine Operator will remain available as needed. documented as of this encounter Visit Diagnoses Diagnosis Cognitive communication deficit- Primary Cerebrovascular accident (CVA), unspecified mechanism (H) documented in this encounter Additional Health Concerns Active Problems Noted Date Diagnosed Date Increased risk of re-admission 02/18/2024 Assessment Noted Time PHQ-9 Depression Total Score: 5 03/17/20 24 9:45 AM CDT documented as of this encounter Care Teams Clam Grader Relationship Specialty Start Date End Date Winston Villatoro OD [facility] [place] [address] [place] [address] PCP - Ophthalmology Ophthalmology 02/11/13 Denise Woodson Ra, BARRERA SALES ASSISTANT [address] [place] [address] PCP - General Family Practice 09/21/20 Denise Woodson Ra, APRN SALES ASSISTANT [address] [address] Assigned PCP 07/17/20 Usha Simon APRN SALES ASSISTANT [address] [place] [address], [place] [address] Nurse Practitioner Neurological Surgery 01/24/24 Dangelo Salinas MD [address] [place] [address] Neurology 01/27/24 Anastasia Stearns, RN Lead Rasper Machine Operator 02/06/24 Germaine Lopez, W Community Health Worker Primary Care - CC 02/18/24 Robin Zepeda MD [address] [address] Assigned Neuroscience Provider 03/08/24 documented as of this encounter
--- OUTSIDE RECORDS SUMMARY | 2024-05-07 18:45 | XMS_ITS | Encounter Summary ---
Author Organization [facility] Address [address] [place] [address]. [place] [address] Care Team Providers Care Sql Etl Developer Name Role Phone Winston Villatoro OD Unavailable [phone] Denise Woodson Ra, APRN PASTEURIZER Unavailable + [phone] Denise Woodson Ra FLAG SIGNALMAN PASTEURIZER Primary Care Provid er Usha Simon APRN PASTEURIZER Unavailable Dangelo Salinas MD Unavailable Anastasia Stearns RN Unavailable [phone] Germaine Lopez CHW Unavailable Robin Zepeda MD Unavailable [phone] Reason for Visit * Reason Comments Medication Refill Encounter Details Date Type Department Care Team (Late st Contact Info) Description 03/31/2024 Refill [facility] [address] [place] [address] Denise Woodson Ra, APRN PASTEURIZER [address] [place] [address] Medication Refill Social History Tobacco [...] Never 02/28/2024 How often do you attend pentecostal or anabaptist serv ices? Never 02/28/2024 Do you belong [...] Answer Date Recorded PHQ-2 Score 0 03/17/2024 [facility] of Occupat ional Health - Occupational Stress [...] in an abandoned building, in an overnight residential, or couch-surfing.) Yes 02/28/2024 Are you worried [...] Description 06/08/2024 8:30 AM CDT Office Visit [facility] [address] [place] [address] Denise Woodson Ra, FLAG SIGNALMAN [facility] [address] [place] [address] documented as of this encounter Goals Goal [...] Mental Health weekly - PT, OT and BIOCHEMISTRY TECHNOLOGIST - PCP appointment 03/17/24 - Neurology 05/05/24, [...] clinic with 08/04 after hours services available. Professional Caster will remain available as needed. documented as of this encounter Visit Diagnoses Diagnosis History of seizure documented in this encounter Additional Health Concerns Active Problems Noted Date Diagnosed Date Increased risk of re-admission 02/18/2024 Assessment Noted Time PHQ-9 Depression Total Score: 5 03/17/20 24 9:45 AM CDT documented as of this encounter Care Teams Sql Etl Developer Relationship Specialty Start Date End Date Winston Villatoro OD [facility] [place] [address] [facility] [address] [place] [address] PCP - Ophthalmology Ophthalmology 02/11/13 Denise Woodson Ra, APRN PASTEURIZER [address] [place] [address] PCP - General Family Practice 09/21/20 Denise Woodson Ra, APRN PASTEURIZER [address] [facility] [place] [address] Assigned PCP 07/17/20 Usha Simon APRN PASTEURIZER 909 [facility] [id number] [place] [address] Nurse Practitioner Neurological Surgery 01/24/24 Dangelo Salinas MD [address] [place] [address] Neurology 01/27/24 Anastasia Stearns, RN Lead Professional Caster 02/06/24 Germaine Lopez, W Community Health Worker Primary Care - CC 02/18/24 Robin Zepeda MD [address] [place], [place] [address], [place] [address] Assigned Neuroscience Provider 03/08/24 documented as of this encounter
--- OUTSIDE RECORDS SUMMARY | 2024-05-07 18:45 | XMS_ITS | Encounter Summary ---
Author Organization [place] Address [address] [place] [address] Care Team Providers Care Carbon Capture Power Plant Operator Name Role Phone Winston Villatoro OD Unavailable [phone] Denise Woodson Ra, APRN SUPERVISOR CALIBRATION Unavailable [phone] Denise Woodson Ra, APRN SUPERVISOR CALIBRATION Primary Care Provid er Usha Simon APRN SUPERVISOR CALIBRATION Unavailable [phone] Dangelo Salinas MD Unavailable Anastasia Stearns RN Unavailable [phone] Germaine Lopez CHW Unavailable [phone] Robin Zepeda MD Unavailable [phone] Reason for Visit * Rehab Therapy Integrated Services (Routine) - Authorized Specialty Diagnoses / Procedures Referred By Nila shah Referred To Contact Diagnoses Cerebrovascular accident (CVA), unspecified mechanism (H) [address] [address] Referral ID Status Reason Start Date Expiration Date V isits Requested Visits Authorized [id number] Authorized 09/16/2023 09/15/2024 365 365 Encounter Details Date Type Department Care Team (Late st Contact Info) Description 03/26/2024 3:30 PM CDT Therapy Visit [address] [phone] Danya You, AMAIRANI [address] [place] [address] [address] [place] [address] Delicia George, PT [address] [place] [address] Cerebrovascular accident (CVA), unspecified mechanism [...] How often do you attend jew or protestant serv ices? Never 02/28/2024 Do [...] Answer Date Recorded PHQ-2 Score 0 03/17/2024 [facility] [place] of Occupat ional Health - Occupational Stress [...] in an abandoned building, in an overnight detention, or couch-surfing.) Yes 02/28/2024 Are you worried [...] * Patient Instructions* Delicia George, PT - 03/26/2024 3:30 PM CDT Physical therapy notes 03/26/24: 20-20-20 rule: Every 20 minutes look at something 20 feet away for 20 seconds Stand with one foot in front of the other for 10 seconds, then step your left foot forward or backwards. You should always be maintaining balance with right foot, left foot is moving to the front or back. Repeat for 1-2 minutes while doing tasks like washing your hands or resting your eyes from screen time. Look at the zig zags during the day - don't push to a headache but some eye heaviness is ok. Continue with videos of carpet as able, but if work is enough visual stimulation you can take a break from videos. If work is increasing symptoms, you can take a break from exercises for a few days until your tolerance feels like it is improving. documented in this encounter Progress Notes * Delicia George, PT - 03/26/2024 4:09 PM CDT 03/26/24 1600 Signing Clinician's Name / Credentials Signing clinician's name / credentials Delicia George DPRuiz Functional Gait Assessment (Edward Vargas., Yanna Quinones., et al. (2004)) 1. GAIT LEVEL SURFACE 3 2. CHANGE IN GAIT SPEED 3 3. GAIT WITH HORIZONTAL HEAD TURNS 3 4. GAIT WITH VERTICAL HEAD TURNS 3 5. GAIT AND PIVOT TURN 3 6. STEP OVER OBSTACLE 2 7. GAIT WITH NARROW BASE OF SUPPORT 1 (4 steps) 8. GAIT WITH EYES CLOSED 2 9. AMBULATING BACKWARDS 3 10. STEPS 3 Total Functional Gait Assessment Score TOTAL SCORE: (MAXIMUM SCORE 30) 26 Functional Gait Assessment (FGA): The FGA assesses [...] to patient? s function & care plan): FGA performed to assess dynamic balance, risk for falls and progress toward goals. Improvement noted from initially to today, indicating she is no longer at an increased risk for falls. She may be nefit from continued skilled physical therapy to decrease risk for falls and increase safety and independence with functional mobility and ADLs. (Minutes billed as physical performance test): 10 documented in this encounter Plan of Treatment Upcoming Encounters Date Type Department Care Team (Late st Contact Info) Description 06/08/2024 8:30 AM CDT Office Visit [facility] [address] [place] [address] Denise Woodson Ra, BURNING PLANT OPERATOR [facility] [address] [place] [address] documented as of this encounter Goals Goal [...] Health weekly - PT, OT and SUPERVISOR CELL EFFICIENCY - PCP appointment 03/17/24 - Neurology 05/05/24, [...] clinic with 24/7 after hours services available. Shear Tender will remain available as needed. documented as of this encounter Visit Diagnoses Diagnosis Cerebrovascular accident (CVA), unspecified mechanism (H)- Primary documented in this encounter Additional Health Concerns Active Problems Noted Date Diagnosed Date Increased risk of re-admission 02/18/2024 Assessment Noted Time PHQ-9 Depression Total Score: 5 03/17/20 24 9:45 AM CDT documented as of this encounter Care Teams Carbon Capture Power Plant Operator Relationship Specialty Start Date End Date Winston Villatoro OD [facility] [place] [address] [place] [address] PCP - Ophthalmology Ophthalmology 02/11/13 Denise Woodson Ra, BURNING PLANT OPERATOR SUPERVISOR CALIBRATION [address] [address] [facility] [place] [address] PCP - General Family Practice 09/21/20 Denise Woodson Ra, BURNING PLANT OPERATOR SUPERVISOR CALIBRATION [address] [address] [facility] [address] Assigned PCP 07/17/20 Usha Simon APRN SUPERVISOR CALIBRATION [address] [place] [address] Nurse Practitioner Neurological Surgery 01/24/24 Dangelo Salinas MD [address] [place] [address] Neurology 01/27/24 Anastasia Stearns, RN Lead Shear Tender 02/06/24 Germaine Lopez, CHW Community Health Worker Primary Care - CC 02/18/24 Robin Zepeda MD [address] [address] Assigned Neuroscience Provider 03/08/24 documented as of this encounter
--- OUTSIDE RECORDS SUMMARY | 2024-05-07 18:45 | XMS_ITS | Encounter Summary ---
Author Organization [facility] Address [address] [place] [address] Care Team Providers Care Building Dismantler Name Role Phone Winston Villatoro OD Unavailable [phone] Denise Woodson Ra, APRN GOLF COURSE LABORER Unavailable [phone] Denise Woodson Ra, APRN GOLF COURSE LABORER Primary Care Provid er Usah Simon APRN GOLF COURSE LABORER Unavailable [phone] Dangelo Salinas MD Unavailable Anastasia Stearns RN Unavailable [phone] Germaine Lopez CHW Unavailable [phone] Robin Zepeda MD Unavailable [phone] Reason for Visit * Rehab Therapy Integrated Services (Routine) - Authorized Specialty Diagnoses / Procedures Referred By Nila shah Referred To Contact Diagnoses Cerebrovascular accident (CVA), unspecified mechanism (H) [address] [address] Referral ID Status Reason Start Date Expiration Date V isits Requested Visits Authorized [id number] Authorized 09/16/2023 09/15/2024 365 365 Encounter Details Date Type Department Care Team (Late st Contact Info) Description 03/11/2024 3:00 PM CDT Therapy Visit [address] [phone] Danya You, AMAIRANI [address] [place] [address] 213 [place] [address] Charis Chacon, JUAN [facility] [address] [place] [address] Cognitive communication deficit (Primary Dx); Cerebrovascular accident [...] Never 02/28/2024 How often do you attend buddhist or taoist serv ices? Never 02/28/2024 Do you belong to any clubs o r organizations such as buddhist groups, unions, fraternal or athletic groups, or [...] 02/28/2024 PHQ-2 Answer Date Recorded PHQ-2 Score 4 02/12/2024 [facility] [place] of Occupat ional Health - Occupational Stress [...] Description 06/08/2024 8:30 AM CDT Office Visit [facility] [address] [place] [address] Denise Woodson Ra, MANUAL QA TESTER GOLF COURSE LABORER [address] [place] [address] documented as of this encounter Goals Goal [...] Mental Health weekly - PT, OT and ZIPPER JOINER - PCP appointment 03/17/24 - Neurology 05/05/24, [...] clinic with 08/04 after hours services available. Billet Worker will remain available as needed. documented as of this encounter Visit Diagnoses Diagnosis Cognitive communication deficit- Primary Cerebrovascular accident (CVA), unspecified mechanism (H) documented in this encounter Additional Health Concerns Active Problems Noted Date Diagnosed Date Increased risk of re-admission 02/18/2024 Assessment Noted Time PHQ-9 Depression Total Score: 16 024 3:27 PM CDT documented as of this encounter Care Teams Building Dismantler Relationship Specialty Start Date End Date Winston Villatoro OD [facility] [place] [address] [place] [address] PCP - Ophthalmology Ophthalmology 02/11/13 Denise Woodson Ra, MANUAL QA TESTER GOLF COURSE LABORER [address] [place] [address] PCP - General Family Practice 09/21/20 Denise Woodson Ra, APRN GOLF COURSE LABORER [address] [address] [place] [address] Assigned PCP 07/17/20 Usha Simon APRN GOLF COURSE LABORER [address] [place] [address] [address] Nurse Practitioner Neurological Surgery 01/24/24 Dangelo Salinas MD [address] [place] [address] Neurology 01/27/24 Anastasia Stearns, RN Lead Billet Worker 02/06/24 Germaine Lopez, W Community Health Worker Primary Care - CC 02/18/24 Robin Zepeda MD [address] [address] Assigned Neuroscience Provider 03/08/24 documented as of this encounter
--- OUTSIDE RECORDS SUMMARY | 2024-05-07 18:45 | XMS_ITS | Encounter Summary ---
Author Organization [facility] Address [address] [place] [address] Care Team Providers Care Procurement Coordinator Name Role Phone Winston Villatoro OD Unavailable [phone] Denise Woodson Ra, APRN VOCATIONAL GUIDANCE COUNSELOR Unavailable [phone] Denise Woodson Ra, APRN VOCATIONAL GUIDANCE COUNSELOR Primary Care Provid er Usha Simon APRN VOCATIONAL GUIDANCE COUNSELOR Unavailable [phone] Dangelo Salinas MD Unavailable Anastasia Stearns RN Unavailable [phone] Germaine Lopez CHW Unavailable [phone] Robin Zepeda MD Unavailable Reason for Visit * Reason Onset Date Comments Appointment 03/16/2024 Follow up Encounter Details Date Type Department Care Team ([facility] st Contact Info) Description 03/16/2024 Telephone [facility] [address] 3[address] [place] [address] Raul Hoyos MD [address] [place] [address] [id number] [place] [address] Appointment (Follow up ) Social History Tobacco Use Types Packs/Day Years [...] How often do you attend gnosticism or alevism serv ices? Never 02/28/2024 Do you belong [...] Answer Date Recorded PHQ-2 Score 0 03/17/2024 [facility] of Occupat ional Health - Occupational Stress [...] encounter Miscellaneous Notes * Telephone Encounter - Ora Bazan - 03/16/2024 9:53 AM CDT Left Voicemail (1st Attempt) and Sent Mychart (1st Attempt) for the patient to call back and schedule the following: Appointment type: Return Stroke Provider: Return date: 04/14 at 9:30 am - slot on hold Specialty phone number: [phone] Additional appointment(s) needed: n/a Additonal Notes: Schedule with Dr. Hoyos on 04/14/24 at 0930 for a video visit and remove hold once complete. Thanks! Stacey Bazan on 03/16/2024 at 9:54 AM documented in this encounter Plan of Treatment Upcoming Encounters Date Type Department Care Team (Late st Contact Info) Description 06/08/2024 8:30 AM CDT [facility] [address] [place] [phone] Denise Woodson Ra, FABRIC AND TEXTILE FACTORY WORKER VOCATIONAL GUIDANCE COUNSELOR [address] [address] [address] documented as of this encounter Goals Goal [...] Mental Health weekly - PT, OT and INSTRUCTOR DANCING - PCP appointment 03/17/24 - Neurology 05/05/24, [...] clinic with 08/04 after hours services available. Lcpc will remain available as needed. documented as of this encounter Visit Diagnoses Not on filedocumented in this encounter Additional Health Concerns Active Problems Noted Date Diagnosed Date Increased risk of re-admission 02/18/2024 Assessment Noted Time PHQ-9 Depression Total Score: 16 024 3:27 PM CDT documented as of this encounter Care Teams Procurement Coordinator Relationship Specialty Start Date End Date Winston Villatoro OD [facility] [place] [address] [place] [address] PCP - Ophthalmology Ophthalmology 02/11/13 Denise Woodson Ra FABRIC AND TEXTILE FACTORY WORKER VOCATIONAL GUIDANCE COUNSELOR [address] [address] [place] [address] PCP - General Family Practice 09/21/20 Denise Woodson Ra FABRIC AND TEXTILE FACTORY WORKER VOCATIONAL GUIDANCE COUNSELOR [address] [place] [address] Assigned PCP 07/17/20 Usha Simon APRN VOCATIONAL GUIDANCE COUNSELOR [address] [id number] Nurse Practitioner Neurological Surgery 01/24/24 Dangelo Salinas MD [address] [place], [place] [address] Neurology 01/27/24 Anastasia Stearns, RN Lead Lcpc 02/06/24 Germaine Lopez, CHW Community Health Worker Primary Care - CC 02/18/24 Robin Zepeda MD [address] [address] Assigned Neuroscience Provider 03/08/24 documented as of this encounter
--- OUTSIDE RECORDS SUMMARY | 2024-05-07 18:45 | XMS_ITS | Encounter Summary ---
Author Organization [place] Address [address] [place] [address]. [place] [address] Care Team Providers Care Turf Sales Person Name Role Phone Winston Villatoro OD Unavailable [phone] Denise Woodson Ra, APRN SHOE TRIMMER Unavailable [phone] Denise Woodson Ra, APRN SHOE TRIMMER Primary Care Provid er Usha Simon APRN SHOE TRIMMER Unavailable [phone] Dangelo Salinas MD Unavailable Anastasia Stearns RN Unavailable [phone] Germaine Lopez CHW Unavailable [phone] Robin Zepeda MD Unavailable [phone] Reason for Visit * Rehab Therapy Integrated Services (Routine) - Authorized Specialty Diagnoses / Procedures Referred By Nila shah Referred To Contact Diagnoses Cerebrovascular accident (CVA), unspecified mechanism (H) [address] [address] Referral ID Status Reason Start Date Expiration Date V isits Requested Visits Authorized [id number] Authorized 09/16/2023 09/15/2024 365 365 Encounter Details Date Type Department Care Team (Latest Contact Info) Description 03/17/2024 4:00 PM CDT Therapy Visit [address] [phone] Danya You PA [address] [place] [address] [address] [place] [address] Vanessa Duggan PT Cerebrovascular accident (CVA), unspecified mechanism (H) [...] Never 02/28/2024 How often do you attend yazdanism or moravian serv ices? Never 02/28/2024 Do you belong [...] Answer Date Recorded PHQ-2 Score 0 03/17/2024 [facility] [place] of Occupat ional Health - Occupational Stress [...] Description 06/08/2024 8:30 AM CDT Office Visit [facility] [address] [place] [address] Denise Woodson Ra, REEL HOOKER SHOE TRIMMER [address] [place] [address] documented as of this encounter [...] Mental Health weekly - PT, OT and BULK PLANT MANAGER - PCP appointment 03/17/24 - Neurology 05/05/24, [...] clinic with 08/04 after hours services available. Measurement Department Chief Clerk will remain available as needed. documented as of this encounter Visit Diagnoses Diagnosis Cerebrovascular accident (CVA), unspecified mechanism (H)- Primary documented in this encounter Additional Health Concerns Active Problems Noted Date Diagnosed Date Increased risk of re-admission 02/18/2024 Assessment Noted Time PHQ-9 Depression Total Score: 5 03/17/20 24 9:45 AM CDT documented as of this encounter Care Teams Turf Sales Person Relationship Specialty Start Date End Date Winston Villatoro OD [facility] [place] [address] [place] [address] PCP - Ophthalmology Ophthalmology 02/11/13 Denise Woodson Ra, APRN SHOE TRIMMER [address] [address] [place] [address] PCP - General Family Practice 09/21/20 Denise Woodson Ra, APRN SHOE TRIMMER [address] [place] [address] Assigned PCP 07/17/20 Usha Simon APRN SHOE TRIMMER [address] [place] [address] Nurse Practitioner Neurological Surgery 01/24/24 Dangelo Salinas MD [address] [place] [address] Neurology 01/27/24 Anastasia Stearns, RN Lead Measurement Department Chief Clerk 02/06/24 Germaine Lopez, W Community Health Worker Primary Care - CC 02/18/24 Robin Zepeda MD [address] [address] Assigned Neuroscience Provider 03/08/24 documented as of this encounter
--- OUTSIDE RECORDS SUMMARY | 2024-05-07 18:45 | XMS_ITS | Encounter Summary ---
Author Organization [facility] Address [address] [place] [address] Care Team Providers Care Torch Solderer Name Role Phone Winston Villatoro OD Unavailable [phone] Denise Woodson Ra, APRN SANITIZER Unavailable [phone] Denise Woodson Ra, APRN SANITIZER Primary Care Provid er Usha Simon APRN SANITIZER Unavailable [phone] Dangelo Salinas MD Unavailable Anastasia Stearns RN Unavailable [phone] Germaine Lopez CHW Unavailable Robin Zepeda MD Unavailable [phone] Reason for Visit * Rehab Therapy Integrated Services (Routine) - Authorized Specialty Diagnoses / Procedures Referred By Nila shah Referred To Contact Diagnoses Cerebrovascular accident (CVA), unspecified mechanism (H) [address] [address] Referral ID Status Reason Start Date Expiration Date V isits Requested Visits Authorized [id number] Authorized 09/16/2023 09/15/2024 365 365 Encounter Details Date Type Department Care Team (Late st Contact Info) Description 03/26/2024 1:30 PM CDT Therapy Visit [address] [phone] Danya You, PA [address] [place] [address] 213 [place] [address] Isabel Beaulieu, OTR [address] [address] Cerebrovascular accident (CVA), unspecified mechanism (H) (Primary [...] How often do you attend adventist or sikh serv ices? Never 02/28/2024 Do [...] Answer Date Recorded PHQ-2 Score 0 03/17/2024 [facility] [place] of Occupat ional Health - Occupational Stress [...] in an abandoned building, in an overnight fdc, or couch-surfing.) Yes 02/28/2024 Are you worried [...] Description 06/08/2024 8:30 AM CDT Office Visit [facility] [address] [place] [address] Denise Woodson Ra, DATA MANAGEMENT ASSOCIATE SANITIZER [address] [address] [address] documented as of this encounter Goals Goal [...] Mental Health weekly - PT, OT and MARINE ENGINE MECHANIC - PCP appointment 03/17/24 - Neurology [...] clinic with 08/04 after hours services available. Lunch Counter Manager will remain available as needed. documented as of this encounter Visit Diagnoses Diagnosis Cerebrovascular accident (CVA), unspecified mechanism (H)- Primary documented in this encounter Additional Health Concerns Active Problems Noted Date Diagnosed Date Increased risk of re-admission 02/18/2024 Assessment Noted Time PHQ-9 Depression Total Score: 5 03/17/20 24 9:45 AM CDT documented as of this encounter Care Teams Torch Solderer Relationship Specialty Start Date End Date Winston Villatoro OD [facility] [place] [address] [place] [address] PCP - Ophthalmology Ophthalmology 02/11/13 Denise Woodson Ra, DATA MANAGEMENT ASSOCIATE SANITIZER [address] [address] [address] PCP - General Family Practice 09/21/20 Denise Woodson Ra, APRN SANITIZER [address] [facility] [place] [address] Assigned PCP 07/17/20 Usha Simon APRN SANITIZER [address] 9[address]12[address], [place] [address] Nurse Practitioner Neurological Surgery 01/24/24 Dangelo Salinas MD [address] [place] [address] Neurology 01/27/24 Anastasia Stearns, RN Lead Lunch Counter Manager 02/06/24 Germaine Lopez, W Community Health Worker Primary Care - CC 02/18/24 Robin Zepeda MD [address] [address]12[address], [place] [address] Assigned Neuroscience Provider 03/08/24 documented as of this encounter
--- OUTSIDE RECORDS SUMMARY | 2024-05-07 18:45 | XMS_ITS | Encounter Summary ---
Author Organization [place] Address [address] [place] [address] Care Team Providers Care Health Care Coordinator Name Role Phone ShaunaWinston OD Unavailable [phone] Denise Woodson Ra, APRN INSPECTOR INTEGRATED CIRCUITS Unavailable [phone] Denise Woodson Ra, APRN INSPECTOR INTEGRATED CIRCUITS Primary Care Provid er Usha Simon APRN INSPECTOR INTEGRATED CIRCUITS Unavailable [phone] Dangelo Salinas MD Unavailable Anastasia Stearns RN Unavailable [phone] Germaine Lopez CHW Unavailable [phone] Robin Zepeda MD Unavailable [phone] Encounter Details Date Type Department Care Team (Latest Contact Info) Description 03/16/2024 Travel Social History Tobacco Use Types Packs/Day [...] Never 02/28/2024 How often do you attend taoist or jehovah's witness serv ices? Never 02/28/2024 [...] Answer Date Recorded PHQ-2 Score 0 03/17/2024 [facility] of Occupat ional Health [...] Description 06/08/2024 8:30 AM CDT Office Visit [facility] [address] [place] [address] Denise Woodson Ra, COMPLAINT CLERK INSPECTOR INTEGRATED CIRCUITS [address] [place] [address] documented as of this encounter Goals Goal [...] Mental Health weekly - PT, OT and WINDOW SHADE RING COVERER - PCP appointment 03/17/24 - Neurology 05/05/24, [...] clinic with 24/7 after hours services available. Clinical Physician Assistant will remain available as needed. documented as of this encounter Visit Diagnoses Not on filedocumented in this encounter Additional Health Concerns Active Problems Noted Date Diagnosed Date Increased risk of re-admission 02/18/2024 Assessment Noted Time PHQ-9 Depression Total Score: 16 024 3:27 PM CDT documented as of this encounter Care Teams Health Care Coordinator Relationship Specialty Start Date End Date Winston Villatoro OD [facility] [address] [facility] [address] [place] [address] PCP - Ophthalmology Ophthalmology 02/11/13 Denise Woodson Ra, APRN INSPECTOR INTEGRATED CIRCUITS [address] [place] [address] PCP - General Family Practice 09/21/20 Denise Woodson Ra, APRN INSPECTOR INTEGRATED CIRCUITS [address] [place] [address] Assigned PCP 07/17/20 Usha Simon APRN INSPECTOR INTEGRATED CIRCUITS 9 [facility], [place] [address] Nurse Practitioner Neurological Surgery 01/24/24 Dangelo Salinas MD [address] [id number] Neurology 01/27/24 Anastasia Stearns, RN Lead Clinical Physician Assistant 02/06/24 Germaine Lopez, W Community Health Worker Primary Care - CC 02/18/24 Robin Zepeda MD 909 [facility], [place] [address] Assigned Neuroscience Provider 03/08/24 documented as of this encounter
--- OUTSIDE RECORDS SUMMARY | 2024-05-07 18:45 | XMS_ITS | Encounter Summary ---
Author Organization [place] Address [address] [place] [address] Care Team Providers Care Timber Treating Tank Operator Name Role Phone ShaunaWinston OD Unavailable [phone] Denise Woodson Ra, APRN COMPENSATION ASSOCIATE Unavailable [phone] Denise Woodson Ra, APRN COMPENSATION ASSOCIATE Primary Care Provid er Usha Simon APRN COMPENSATION ASSOCIATE Unavailable [phone] Dangelo Salinas MD Unavailable Anastasia Stearns RN Unavailable [phone] Germaine Lopez CHW Unavailable Robin Zepeda MD Unavailable [phone] Encounter Details Date Type Department Care Team (Latest Contact Info) Description 03/18/2024 Travel Social History Tobacco Use Types Packs/Day [...] Never 02/28/2024 How often do you attend holiness or orthodox serv ices? Never 02/28/2024 Do you belong to any clubs o r organizations such as holiness groups, unions, fraternal or athletic groups, or [...] Answer Date Recorded PHQ-2 Score 0 03/17/2024 [facility] of Occupat ional Health - Occupational Stress [...] in an abandoned building, in an overnight fci, or couch-surfing.) Yes 02/28/2024 Are you worried [...] AM CDT Office Visit [facility] [address] [place] [address] Denise Woodson Ra, MASONRY INSPECTOR COMPENSATION ASSOCIATE [address] [place] [address] documented as of this encounter Goals Goal [...] Mental Health weekly - PT, OT and AGRICULTURAL ADVISER - PCP appointment 03/17/24 - Neurology 05/05/24, [...] clinic with 24/7 after hours services available. Supervisor Tumblers will remain available as needed. documented as of this encounter Visit Diagnoses Not on filedocumented in this encounter Additional Health Concerns Active Problems Noted Date Diagnosed Date Increased risk of re-admission 02/18/2024 Assessment Noted Time PHQ-9 Depression Total Score: 5 03/17/20 24 9:45 AM CDT documented as of this encounter Care Teams Timber Treating Tank Operator Relationship Specialty Start Date End Date ShaunaWinston moralez OD [facility] [address] [facility] [address] [place] [address] PCP - Ophthalmology Ophthalmology 02/11/13 Denise Woodson Ra, APRN COMPENSATION ASSOCIATE [address] [place] [address] PCP - General Family Practice 09/21/20 Denise Woodson Ra, APRN COMPENSATION ASSOCIATE [address] [place] [address] Assigned PCP 07/17/20 Usha Simon APRN COMPENSATION ASSOCIATE 9 [facility]121[place], [place] [address] Nurse Practitioner Neurological Surgery 01/24/24 Dangleo Salinas MD [address] [id number] Neurology 01/27/24 Anastasia Stearns, RN Lead Supervisor Tumblers 02/06/24 Germaine Lopez, W Community Health Worker Primary Care - CC 02/18/24 Robin Zepeda MD 909 [facility], [place] [address] Assigned Neuroscience Provider 03/08/24 documented as of this encounter
--- OUTSIDE RECORDS SUMMARY | 2024-05-07 18:45 | XMS_ITS | Encounter Summary ---
Author Organization [facility] Address [address] [place] [address] Care Team Providers Care Wire Temperer Name Role Phone Winston Villatoro OD Unavailable [phone] Denise Woodson Ra, APRN PRISON KEEPER Unavailable [phone] Denise Woodson Ra, APRN PRISON KEEPER Primary Care Provid er Usha Simon APRN PRISON KEEPER Unavailable [phone] Dangelo Salinas MD Unavailable Anastasia Stearns RN Unavailable [phone] Germaine Lopez CHW Unavailable [phone] Robin Zepeda MD Unavailable [phone] Reason for Visit * Rehab Therapy Integrated Services (Routine) - Authorized Specialty Diagnoses / Procedures Referred By Nila shah Referred To Contact Diagnoses Cerebrovascular accident (CVA), unspecified mechanism (H) [address] [address] Referral ID Status Reason Start Date Expiration Date V isits Requested Visits Authorized [id number] Authorized 09/16/2023 09/15/2024 365 365 Encounter Details Date Type Department Care Team (Late st Contact Info) Description 03/17/2024 2:30 PM CDT Therapy Visit [address] [phone] Danya You, AMAIRANI [address] [place] [address] 213 [place] [address] Charis Chacon, JUAN [facility] [address] [place] [address] Cognitive communication deficit (Primary Dx); Cerebrovascular accident [...] Never 02/28/2024 How often do you attend caodaism or muslim serv ices? Never 02/28/2024 Do you belong to any clubs o r organizations such as caodaism groups, unions, fraternal or athletic groups, or [...] Answer Date Recorded PHQ-2 Score 0 03/17/2024 [facility] [place] of Occupat ional Health - Occupational Stress [...] AM CDT Office Visit [facility] [address] [place] [address] Denise Woodson Ra, BARRERA PRISON KEEPER [address] [place] [address] documented as of this encounter Goals Goal [...] Mental Health weekly - PT, OT and PETROLEUM GEOLOGIST - PCP appointment 03/17/24 - Neurology 05/05/24, [...] clinic with 08/04 after hours services available. Data Scientist will remain available as needed. documented as of this encounter Visit Diagnoses Diagnosis Cognitive communication deficit- Primary Cerebrovascular accident (CVA), unspecified mechanism (H) documented in this encounter Additional Health Concerns Active Problems Noted Date Diagnosed Date Increased risk of re-admission 02/18/2024 Assessment Noted Time PHQ-9 Depression Total Score: 5 03/17/20 24 9:45 AM CDT documented as of this encounter Care Teams Wire Temperer Relationship Specialty Start Date End Date Winston Villatoro OD [facility] [place] [address] [place] [address] PCP - Ophthalmology Ophthalmology 02/11/13 Denise Woodson Ra, BARRERA PRISON KEEPER [address] [place] [address] PCP - General Family Practice 09/21/20 Denise Woodson Ra, APRN PRISON KEEPER [address] [address] [address] Assigned PCP 07/17/20 Usha Simon APRN PRISON KEEPER [address] [address] [address] Nurse Practitioner Neurological Surgery 01/24/24 Dangelo Salinas MD [address] [place] [address] Neurology 01/27/24 Anastasia Stearns, RN Lead Data Scientist 02/06/24 Germaine Lopez, W Community Health Worker Primary Care - CC 02/18/24 Robin Zepeda MD [address] [address] Assigned Neuroscience Provider 03/08/24 documented as of this encounter
--- OUTSIDE RECORDS SUMMARY | 2024-05-07 18:45 | XMS_ITS | Encounter Summary ---
Author Organization [place] Address [address] [place] [address] Care Team Providers Care Accountant Cost Name Role Phone Winston Villatoro OD Unavailable [phone] Denise Woodson Ra, APRN CASSANDRA ARCHITECT Unavailable [phone] Denise Woodson Ra, APRN CASSANDRA ARCHITECT Primary Care Provid er Usha Simon APRN CASSANDRA ARCHITECT Unavailable [phone] Dangelo Salinas MD Unavailable Anastasia Stearns RN Unavailable [phone] Germaine Lopez CHW Unavailable [phone] Robin Zepeda MD Unavailable [phone] Reason for Visit * Rehab Therapy Integrated Services (Routine) - Authorized Specialty Diagnoses / Procedures Referred By Nila shah Referred To Contact Diagnoses Cerebrovascular accident (CVA), unspecified mechanism (H) [address] [address] Referral ID Status Reason Start Date Expiration Date V isits Requested Visits Authorized [id number] Authorized 09/16/2023 09/15/2024 365 365 Encounter Details Date Type Department Care Team (Late st Contact Info) Description 03/26/2024 2:30 PM CDT Therapy Visit [address] [phone] Danya You, AMAIRANI [address] [place] [address] 213 [place] [address] Charis Chacon, J[facility]AN [facility] [address] [place] [address] Cognitive communication deficit (Primary Dx); Cerebrovascular accident [...] Never 02/28/2024 How often do you attend yarsanism or bahai serv ices? Never 02/28/2024 Do you belong to any clubs o r organizations such as yarsanism groups, unions, fraternal or athletic groups, or [...] Answer Date Recorded PHQ-2 Score 0 03/17/2024 [facility] [place] of Occupat ional Health - Occupational Stress [...] in an abandoned building, in an overnight penitentiary, or couch-surfing.) Yes 02/28/2024 Are you worried [...] Description 06/08/2024 8:30 AM CDT Office Visit [facility] [address] [place] [address] Denise Woodson Ra, BARRERA CASSANDRA ARCHITECT [address] [place] [address] documented as of this encounter Goals Goal [...] Mental Health weekly - PT, OT and PICKING TECH - PCP appointment 03/17/24 - Neurology 05/05/24, [...] clinic with 08/04 after hours services available. Vegetable Grader will remain available as needed. documented as of this encounter Visit Diagnoses Diagnosis Cognitive communication deficit- Primary Cerebrovascular accident (CVA), unspecified mechanism (H) documented in this encounter Additional Health Concerns Active Problems Noted Date Diagnosed Date Increased risk of re-admission 02/18/2024 Assessment Noted Time PHQ-9 Depression Total Score: 5 03/17/20 24 9:45 AM CDT documented as of this encounter Care Teams Accountant Cost Relationship Specialty Start Date End Date Winston Villatoro OD [facility] [place] [address] [place] [address] PCP - Ophthalmology Ophthalmology 02/11/13 Denise Woodson Ra, BARRERA CASSANDRA ARCHITECT [address] [place] [address] PCP - General Family Practice 09/21/20 Denise Woodson Ra, APRN CASSANDRA ARCHITECT [address] [address] [address] Assigned PCP 07/17/20 Usha Simon APRN CASSANDRA ARCHITECT [address] [address] [address] Nurse Practitioner Neurological Surgery 01/24/24 Dangelo Salinas MD [address] [place] [address] Neurology 01/27/24 Anastasia Stearns, RN Lead Vegetable Grader 02/06/24 Germaine Lopez, W Community Health Worker Primary Care - CC 02/18/24 Robin Zepeda MD [address] [address] Assigned Neuroscience Provider 03/08/24 documented as of this encounter
--- OUTSIDE RECORDS SUMMARY | 2024-05-07 18:45 | XMS_ITS | Encounter Summary ---
Author Organization [facility] Address [address] [place] [address] Care Team Providers Care Facilities Engineering Manager Name Role Phone Winston Villatoro OD Unavailable [phone] Denise Woodson Ra, APRN INFUSION RN Unavailable [phone] Denise Woodson Ra, APRN INFUSION RN Primary Care Provid er Usha Simon APRN INFUSION RN Unavailable [phone] Dangelo Salinas MD Unavailable Anastasia Stearns RN Unavailable [phone] Germaine Lopez CHW Unavailable Robin Zepeda MD Unavailable [phone] Reason for Referral * Diagnostic Imaging CT Scan (Routine) - Closed Specialty Diagnoses / Procedures Referred By Contac t Referred To Contact Radiology. Diagnoses Fibromuscular dysplasia (H24) Procedures CTA Chest Abdomen Pelvis w Contrast Denise Woodson [place] [address] [place] [address] Referral ID Status Reason Start Date Expiration Date Visits Re quested Visits Authorized [id number] Closed 02/06/2024 02/05/2025 1 1 Reason for Visit * Diagnostic Imaging CT Scan (Routine) - Closed Specialty Diagnoses / Procedures Referred By Contac t Referred To Contact Radiology. Diagnoses Fibromuscular dysplasia (H24) Procedures CTA Chest Abdomen Pelvis w Contrast [place]ise Woodson [place], [place] [address] [place] [address] Referral ID Status Reason Start Date Expiration Date Visits Re quested Visits Authorized [id number] Closed 02/06/2024 02/05/2025 1 1 Encounter Details Date Type Department Care Team (Latest Contact Info) Description 03/18/2024 1:21 PM CDT - 03/18/2024 11:59 PM CDT Hospital Encounter [facility] [address] [place] [address] Denise Woodson Ra, APRN CNP [id number] [address] [id number] Fibromuscular dysplasia (H24) Discharge Disposition: Home or [...] Never 02/28/2024 How often do you attend hinduism or quaker serv ices? Never 02/28/2024 Do [...] Answer Date Recorded PHQ-2 Score 0 03/17/2024 [facility] - Occupational [...] in an abandoned building, in an overnight mcc, or couch-surfing.) Yes 02/28/2024 Are you worried [...] 3 07/13/2020 aspirin (ASA) 325 MG EC tabletIndications:Cer ebrovascular accident (CVA), unspecified mechanism (H) Take 1 tablet (325 mg) by mouth daily 30 tablet 02/14/2024 BREO ELLIPTA 200-25 MCG/INH InhalerIndications:Mo derate persistent [...] patch free for 12 hrs daily. 01/22/2024 LORazepam (ATIVAN) 1 MG tabletIndications:His tory of seizure Take 1/2-1 tablet daily as needed for onset of dizziness. 10 tablet 03/17/2024 magnesium oxide 200 MG TABS Ok to [...] by mouth daily rosuvastatin (CRESTOR) 20 MG tabletIndications:Cer ebrovascular accident (CVA), unspecified mechanism (H) TAKE 1 TABLET (20 MG) BY MOUTH AT BEDTIME 90 tablet 03/06/2024 senna-docusate (SENOKOT-S/PERICOLACE ) 8.6-50 MG tabletIndications:Oth er constipation Take 2 tablets by mouth 2 times daily as needed for constipation 01/22/2024 traZODone (DESYREL) 50 MG tabletIndications:Ins omnia, unspecified type Take 2 tablets (100 mg) by mouth At Bedtime 180 tablet 3 07/27/2021 levETIRAcetam (KEPPRA) 750 MG tabletIndications:His tory of seizure TAKE 1 TABLET (750 MG) BY MOUTH 2 TIMES DAILY 60 tablet 03/06/2024 04/01/2024 documented as of this encounter Plan of Treatment Upcoming Encounters Date Type Department Care Team (Late st Contact Info) Description 06/08/2024 8:30 AM CDT Office Visit [facility] [id number] [place] [phone] Denise Woodson Ra, COUTURE ALTERATIONS [place] [address] [place] [address] documented as of this encounter [...] Mental Health weekly - PT, OT and AUTOMATIC SILK SCREEN PRINTER - PCP appointment 03/17/24 - Neurology 05/05/24, [...] clinic with 24/7 after hours services available. Support Manager will remain available as needed. documented as of this encounter Procedures Procedure Name Priority Date/Time Associated Diagnosis Comments CTA CHEST ABDOMEN PELVIS W CONTRAST Routine 03/18/2024 2:08 PM CDT Fibromuscular dysplasia (H24) documented in this encounter Results * CTA Chest Abdomen Pelvis w [...] identified. SINGH WORLEY MD Denise Woodson APRN [facility] CT ORDER NASRIN documented in this encounter Visit Diagnoses Diagnosis Fibromuscular dysplasia (H24) Other specified disorders of arteries and arterioles documented in this encounter Administered Medications Inactive Administered Medications - up to 3 most recent administrations Medication Order MAR Action Action Date Dose Rate Site CT scan flush use As instructed, 100 mL, ONCE, On Sat03/18/24 at 1400, For 1 dose, This entry is for use by Radiology to intermittently used as a flush in patients receiving a CT scan. $Given 03/18/2024 1:46 PM CDT 60 mLs iopamidol (ISOVUE-370) solution 500 mL 500 mL, Intravenous, ONCE, On Sat03/18/24 at 1400, For 1 dose $Given 03/18/2024 1:46 PM CDT 72 mLs documented in this encounter Additional Health Concerns Active Problems Noted Date Diagnosed Date Increased risk of re-admission 02/18/2024 Assessment Noted Time PHQ-9 Depression Total Score: 5 03/17/20 24 9:45 AM CDT documented as of this encounter Care Teams Facilities Engineering Manager Relationship Specialty Start Date End Date Winston Villatoro OD [facility] [address] [place] [address] PCP - Ophthalmology Ophthalmology 02/11/13 Denise Woodson [place] [address] [place] [address] PCP - General Family Practice 09/21/20 Denise Woodson [place] [address] [place] [address] Assigned PCP 07/17/20 Usha Simon APRN INFUSION RN 9 [facility] [address] Nurse Practitioner Neurological Surgery 01/24/24 Dangelo Salinas MD [address] [place], [place] [id number] Neurology 01/27/24 Anastasia Stearns, RN Lead Support Manager 02/06/24 Germaine Lopez, [facility] Community Health Worker Primary Care - CC 02/18/24 Robin Zepeda MD 9 [facility] [address] Assigned Neuroscience Provider 03/08/24 documented as of this encounter
--- OUTSIDE RECORDS SUMMARY | 2024-05-07 18:45 | XMS_ITS | Encounter Summary ---
Author Organization [facility] Address [address] [place] [address] Care Team Providers Care Activities Manager Name Role Phone ShaunaWinston OD Unavailable [phone] Denise Woodson Ra, APRN BEET FLUMER Unavailable [phone] Denise Woodson Ra, APRN BEET FLUMER Primary Care Provid er Usha Simon APRN BEET FLUMER Unavailable [phone] Dangelo Salinas MD Unavailable Anastasia Stearns RN Unavailable [phone] Germaine Lopez CHW Unavailable [phone] Robin Zepeda MD Unavailable Encounter Details Date Type Department Care Team (Latest Contact Info) Description 03/11/2024 Travel Social History Tobacco Use Types Packs/Day [...] Never 02/28/2024 How often do you attend jehovah's witness or restorationism serv ices? Never 02/28/2024 Do you belong [...] Answer Date Recorded PHQ-2 Score 4 02/12/2024 [facility] [...] 06/08/2024 8:30 AM CDT Office Visit [facility] [id number] [place] [phone] Denise Woodson Ra, ARCHITECTURAL INTERN BEET FLUMER [address] [place] [address] documented as of this encounter Goals Goal [...] Mental Health weekly - PT, OT and DISK RECORDIST - PCP appointment 03/17/24 - Neurology 05/05/24, [...] clinic with 24/7 after hours services available. Professor Of Nursing will remain available as needed. documented as of this encounter Visit Diagnoses Not on filedocumented in this encounter Additional Health Concerns Active Problems Noted Date Diagnosed Date Increased risk of re-admission 02/18/2024 Assessment Noted Time PHQ-9 Depression Total Score: 16 024 3:27 PM CDT documented as of this encounter Care Teams Activities Manager Relationship Specialty Start Date End Date Winston Villatoro OD [facility] [address] [facility] [address] [place] [address] PCP - Ophthalmology Ophthalmology 02/11/13 Denise Woodson Ra, APRN BEET FLUMER [address] [place] [address] PCP - General Family Practice 09/21/20 Denise Woodson Ra, APRN BEET FLUMER [address] [place] [address] Assigned PCP 07/17/20 Usha Smion APRN BEET FLUMER 9 [facility], [place] [address] Nurse Practitioner Neurological Surgery 01/24/24 Dangelo Salinas MD [address] [id number] Neurology 01/27/24 Anastasia Stearns, RN Lead Professor Of Nursing 02/06/24 Germaine Lopez, W Community Health Worker Primary Care - CC 02/18/24 Robin Zepeda MD 909 [facility], [place] [address] Assigned Neuroscience Provider 03/08/24 documented as of this encounter
--- OUTSIDE RECORDS SUMMARY | 2024-05-07 18:45 | XMS_ITS | Encounter Summary ---
Author Organization [facility] Address [address] [place] [address]. [place] [address] Care Team Providers Care Radio Operator Ground Name Role Phone Winston Villatoro OD Unavailable [phone] Denise Woodson Ra, APRN OUTPATIENT PHYSICAL THERAPIST ASSISTANT Unavailable [phone] Denise Woodson Ra, APRN OUTPATIENT PHYSICAL THERAPIST ASSISTANT Primary Care Provid er Usha Simon APRN OUTPATIENT PHYSICAL THERAPIST ASSISTANT Unavailable Dangelo Salinas MD Unavailable Anastasia Stearns RN Unavailable Germaine Lopez CHW Unavailable Robin Zepeda MD Unavailable Reason for Visit * Reason Comments Follow Up Stroke Encounter Details Date Type Department Care Team (Late st Contact Info) Description 03/17/2024 10:00 AM CDT Office Visit [facility] [address] [place] [address] Denise Woodson Ra, APRN OUTPATIENT PHYSICAL THERAPIST ASSISTANT [address] [place] [address] History of seizure (Primary Dx); Cerebrovascular accident [...] Never 02/28/2024 How often do you attend bahai or zoroastrianism serv ices? Never 02/28/2024 Do you belong to any clubs o r organizations such as bahai groups, unions, fraternal or athletic groups, or [...] Answer Date Recorded PHQ-2 Score 0 03/17/2024 [facility] - Occupational [...] in an abandoned building, in an overnight m[facility], or couch-surfing.) Yes 02/28/2024 Are you worried [...] Sign Reading Time Taken Comments Blood Pressure 128/84 03/17/2024 9:46 AM CDT Pulse 78 03/17/2024 9:46 AM CDT Temperature 36.4 ??C (97.5 ??F) 03/17/2024 9:46 AM CD T Respiratory Rate 10 03/17/2024 9:46 AM CDT Oxygen Saturation 99% 03/17/2024 9:46 AM CDT Inhaled Oxygen Concentration - - Weight 98 kg (216 lb) 03/17/2024 9:46 AM CDT Height 167.6 cm (5' 6) 03/17/2024 9:46 AM CDT Body Mass Index 34.86 03/17/2024 9:46 AM CDT documented in this encounter Progress Notes * Denise Woodson Ra, BARIATRIC PHYSICIAN OUTPATIENT PHYSICAL THERAPIST ASSISTANT - 03/17/2024 10:00 AM CDT Assessment & Plan History of seizure Upcoming neurology appt 05/05/24. Reviewed ED visit from January. Refilled ativan. Monitor. If symptoms recur and do not respond to ativan 1 dose, she will present to the ED. - LORazepam (ATIVAN) 1 MG tablet; Take 1/2-1 tablet daily as needed for onset of dizziness. Cerebrovascular accident (CVA), unspecified mechanism (H) Residual effects resolving. Completed paperwork. Follow up in 2 weeks. The longitudinal plan of care for the diagnosis(es)/condition(s) as documented were addressed during this visit. Due to the added complexity in care, I will continue to support [place] in the subsequent management and with ongoing continuity of care. BMI Estimated body mass index is 34.86 kg/m?? as calculated from the following: Height as of this encounter: 1.676 m (5' 6). Weight as of this encounter: 98 kg (216 lb). Juan M Rondon is a 48 year old, presenting for the following health issues: Follow Up (Stroke) 03/17/2024 9:36 AM Additional Questions Roomed by Addis DYSON Pt states she had stroke on 01/08. Has been doing good since last appointment. Would like to discuss returning to work. Pt brought forms. History of Present Illness Reason for visit: Stroke follow-up She eats 2-3 servings of fruits and vegetables daily.She consumes 0 sweetened beverage(s) daily.Sheexercises with enough effort to increase her heart rate 20 to 29 minutes per day. She exercises with enough effort to increase her heart rate 3 or less days per week. She is taking medications regularly. Continues to improve. Still having sleep issues. Waking several times per night. Still having body temp dysregulation. Hot and cold intermittently. She is not having pain in the same areas as she did previously but this is returning. She also has some tingling that occasionally runs through her body. This is not overly problematic. She reports visual overstimulation. Fast moving television shows are bothersome. Therapy is having her look at busy patterns throughout the day for brief periods to help with this symptom. Multitasking is still difficult. She is doing very well at focusing on one thing at a time. Therapy is also working with her on this. She believes she is graduating from PT today. Her dizziness and balance issues have resolved. Therapy should be completed at the end of March. Currently, short term disability is set to 03/29/24. She is interested in going back to work PT starting 03/30/24. She would like to start slowly as she is anticipating fatigue. Her hours are flexible, the only requirement being that if she logs on to work she needs to work a minimum of 2 hours at a time. She continued to have depression symptoms related to her keppra. 02/15/24 she decreased her keppra dose by 50%. Now taking 1/2 tablet BID. Her symptoms of dizziness and depression resolved quickly after this change. She has follow up scheduled with general neurology 05/05/24. She has had seizure like activity a few times. On 02/12 she had been working on a difficult puzzle and felt a wave through her brain. Describes aura. Followed by headache and numbness in the L side of her face. She was seen in the [facility] ED. Imaging showed no acute stroke. She was sent with ativan to utilize prn. This was given in the ED and it was helpful. She has used it at home on occasion as well and the symptoms have resolved after 30-40 minutes. Review of Systems Constitutional, HEENT, cardiovascular, pulmonary, gi and gu systems are negative, except as otherwise noted. Objective BP 128/84 (BP Location: Right arm, Patient Position: Sitting, Cuff Size: Adult Large) Pulse 78 Temp 97.5 ??F (36.4 ??C) (Oral) Resp 10 Ht 1.676 m (5' 6) Wt 98 kg (216 lb) LMP 01/07/2006 SpO2 99% BMI 34.86 kg/m?? Body mass index is 34.86 kg/m??. Physical Exam GENERAL: alert and no distress PSYCH: mentation appears normal, affect normal/bright Signed Electronically by: Denise Woodson APRN CNP documented in this encounter Plan of Treatment Upcoming Encounters Date Type Department Care Team (Late st Contact Info) Description 06/08/2024 8:30 AM CDT Office Visit [place] [phone] Denise Woodson Ra, BARIATRIC PHYSICIAN OUTPATIENT PHYSICAL THERAPIST ASSISTANT [address] [address] [id number] documented as of this encounter Goals Goal [...] Mental Health weekly - PT, OT and PUBLICATIONS DESIGNER - PCP appointment 03/17/24 - Neurology 05/05/24, [...] clinic with / after hours services available. Post Tensioning Ironworker Helper will remain available as needed. documented as of this encounter Visit Diagnoses Diagnosis History of seizure- Primary Cerebrovascular accident (CVA), unspecified mechanism (H) documented in this encounter Additional Health Concerns Active Problems Noted Date Diagnosed Date Increased risk of re-admission 02/18/2024 Assessment Noted Time PHQ-9 Depression Total Score: 5 03/17/20 24 9:45 AM CDT documented as of this encounter Care Teams Radio Operator Ground Relationship Specialty Start Date End Date Winston Villatoro OD [facility] [place] [address] [place] [address] PCP - Ophthalmology Ophthalmology 02/11/13 Denise Woodson Ra, BARIATRIC PHYSICIAN OUTPATIENT PHYSICAL THERAPIST ASSISTANT [address] [place] [address] PCP - General Family Practice 09/21/20 Denise Woodson Ra, APRN OUTPATIENT PHYSICAL THERAPIST ASSISTANT [address] [address] [id number] Assigned PCP 07/17/20 Usha Simon APRN OUTPATIENT PHYSICAL THERAPIST ASSISTANT [address] [id number] Nurse Practitioner Neurological Surgery 01/24/24 Dangelo Salinas MD [address] [place] [address] Neurology 01/27/24 Anastasia Stearns, RN Lead Post Tensioning Ironworker Helper 02/06/24 Germaine Lopez, W Community Health Worker Primary Care - CC 02/18/24 Robin Zepeda MD [address] [address] Assigned Neuroscience Provider 03/08/24 documented as of this encounter
--- OUTSIDE RECORDS SUMMARY | 2024-05-07 18:45 | XMS_ITS | Encounter Summary ---
Author Organization [facility] Address [address] [place] [address] Care Team Providers Care Neurodiagnostic Technologist Name Role Phone Winston Villatoro OD Unavailable [phone] Denise Woodson Ra, APRN COMMERCIAL MANAGEMENT ACCOUNTANT Unavailable [phone] Denise Woodson Ra, APRN COMMERCIAL MANAGEMENT ACCOUNTANT Primary Care Provid er Usha Simon APRN COMMERCIAL MANAGEMENT ACCOUNTANT Unavailable [phone] Dangelo Salinas MD Unavailable Anastasia Stearns RN Unavailable [phone] Germaine Lopez CHW Unavailable [phone] Rboin Zepeda MD Unavailable [phone] Encounter Details Date Type Department Care Team (Late st Contact Info) Description 03/16/2024 MyC Medical Advice [facility] [address] [place] [address] Ora Bazan Social History Tobacco Use Types Packs/Day Years [...] Never 02/28/2024 How often do you attend sikh or alevism serv ices? Never 02/28/2024 Do [...] Date Recorded PHQ-2 Score 0 03/17/2024 [facility] - Occupational Stress Questionnaire Answer Date [...] an abandoned building, in an overnight senior care, or couch-surfing.) Yes 02/28/2024 Are you worried [...] Description 06/08/2024 8:30 AM CDT Office Visit [facility] [address] [place] [phone] Denise Woodson Ra, PACKAGING SPECIALIST [facility] [address] [place] [address] documented as of this encounter Goals Goal [...] Mental Health weekly - PT, OT and JAILER/TRAINING OFFICER - PCP appointment 03/17/24 - Neurology [...] clinic with 24/7 after hours services available. Hydraulic Spinner will remain available as needed. documented as of this encounter Visit Diagnoses Not on filedocumented in this encounter Additional Health Concerns Active Problems Noted Date Diagnosed Date Increased risk of re-admission 02/18/2024 Assessment Noted Time PHQ-9 Depression Total Score: 16 024 3:27 PM CDT documented as of this encounter Care Teams Neurodiagnostic Technologist Relationship Specialty Start Date End Date Winston Villatoro OD [facility] [address] [facility] [address] [place] [address] PCP - Ophthalmology Ophthalmology 02/11/13 Denise Woodson Ra, APRN COMMERCIAL MANAGEMENT ACCOUNTANT [address] [place] [address] PCP - General Family Practice 09/21/20 Denise Woodson Ra, APRN COMMERCIAL MANAGEMENT ACCOUNTANT [address] [place] [address] Assigned PCP 07/17/20 Usha Simon APRN COMMERCIAL MANAGEMENT ACCOUNTANT 909 [facility] [id number] [place] [address] Nurse Practitioner Neurological Surgery 01/24/24 Dangelo Salinas MD [address] [place] [address] Neurology 01/27/24 Anastasia Stearns, RN Lead Hydraulic Spinner 02/06/24 Germaine Lopez, CHW Community Health Worker Primary Care - CC 02/18/24 Robin Zepeda MD 909 [facility] [address] Assigned Neuroscience Provider 03/08/24 documented as of this encounter
--- OUTSIDE RECORDS SUMMARY | 2024-05-07 18:45 | XMS_ITS | Encounter Summary ---
Author Organization [place] Address [address] [place] [address] Care Team Providers Care Ranch Hand Name Role Phone Winston Villatoro OD Unavailable [phone] Denise Woodson Ra, APRN FELTMAKER AND WEIGHER Unavailable [phone] Denise Woodson Ra, APRN FELTMAKER AND WEIGHER Primary Care Provid er Usha Simon APRN FELTMAKER AND WEIGHER Unavailable [phone] Dangelo Salinas MD Unavailable Anastasia Stearns RN Unavailable [phone] Germaine Lopez CHW Unavailable [phone] Robin Zepeda MD Unavailable [phone] Reason for Visit * Rehab Therapy Integrated Services (Routine) - Authorized Specialty Diagnoses / Procedures Referred By Nila shah Referred To Contact Diagnoses Cerebrovascular accident (CVA), unspecified mechanism (H) [address] [address] Referral ID Status Reason Start Date Expiration Date V isits Requested Visits Authorized [id number] Authorized 09/16/2023 09/15/2024 365 365 Encounter Details Date Type Department Care Team (Late st Contact Info) Description 03/11/2024 2:15 PM CDT Therapy Visit [address] [phone] Danya You, AMAIRANI [address] [place] [address] [address] [place] [address] Isabel Beaulieu, OTR [address] [address] Cerebrovascular accident (CVA), unspecified mechanism (H) (Primary [...] How often do you attend yazidism or restoration serv ices? Never 02/28/2024 Do [...] Answer Date Recorded PHQ-2 Score 4 02/12/2024 [facility] of Occupat ional Health - Occupational Stress [...] as of this encounter Progress Notes * Isabel Beaulieu, OTR - 03/11/2024 4:12 PM CDT PLAN Continue therapy per updated plan of care. See progress and updated goals noted below. Beginning/End Dates of Progress Note Reporting Period: 01/30/24 to 03/11/2024 Referring Provider: Danya You 03/11/24 0500 Appointment Info Treating Provider Isabel Beaulieu, OTR/L Visits Used 4 Medical Diagnosis Cerebrovascular accident (CVA), unspecified mechanism (H) OT Tx Diagnosis Activity of daily living alteration; Alteration in instrumental activities of dailyi living Precautions/Limitations hx of seizure following stroke Other pertinent information NO COMMUNITY REINT/IADLS. TELEHEALTH - YES. Progress Note/Certification Onset of Illness/Injury or Date of Surgery 01/26/24 Therapy Frequency 1x/week Predicted Duration up to 90 days Progress Note Due Date 04/28/24 Goals OT Goals 1;2;3;4;5;6 OT Goal 1 Goal Identifier community mobility Goal Description Pt participates in community mobility assessment items to screen for functional cognition and visuo-spatial reasoning/way finding including: cognitive screen (e.g. SBT, MoCA), SDMT, BiVaba Scan Course, [place] Making, Dynavision (all modes), foot tap measure, sign recognition etc. and demonstrates understanding of results and recommendations for further assessment/testing if indicated. Rationale In order to maximize safety and independence with cognitive function within the home or community Goal Progress Goal met. Administered Dynavision Modes A, B, and B divided attention as well as SDMTwith pt scoring WNLs in all areas tested. No significant concerns regarding patient safety for community mobility tasks noted at this time. Educated pt in consulting with her doctor (PCP or neurologist) regarding recommendations for driving from a medical perspective. Pt to follow final guidance ofher doctor. Target Date 04/28/24 Date Met 03/11/24 OT Goal 2 Goal Identifier fatigue management Goal Description Pt will demonstrate at least 3 energy conservation strategies (e.g. pacing, planning, prioritizing, sleep hygiene, etc.) to facilitate improved fatigue management with ADL/IADL tasks(e.g. laundry, building/handiwork, meal preparation, walking/exercise) as measured by improved FACIT of at least 10 points. Rationale In order to maximize safety and independence with ADL/IADLs Goal Progress Goal met. Pt educated in fatigue management strategies including stovetop burner analogy, planning, prioritizing, pacing, and posture with application to ADLs/IADLs. Pt subjectively reports significant improvement in energy and feels she is near baseline. Continues to feel deconditioned following stroke - will plan to further address with HEP. Target Date 04/28/24 Date Met 03/11/24 OT Goal 3 Goal Identifier FM hep Goal Description Pt will I'ly complete FM HEP to maximize functional independence with handwriting,typing, tying, completing meal prep tasks etc. Rationale In order to maximize safety and independence with ADL/IADLs Goal Progress Goal met/deferred. Pt scoring WFLs for fine motor skills at time of evaluation with slight decrease on reassessment today (see below). Pt overall reports FMC skills are at/near baselineand handwriting has returned to baseline aside from general deconditioning (hand becomes tired withwriting task in session today). Her primary concerns are related to generalized deconditioning/weakness particularly in RUE. New goal added to address this concern. Target Date 04/28/24 Date Met 03/11/24 OT Goal 4 Goal Identifier Memory/Safety Goal Description Patient will demonstrate improved memory skills by completing short-term memory tasks in occupational therapy with 90% accuracy using compensatory strategies for increased safety andindependence with ADL/IADLS (keeping up schedule, remembering to take medications, turn off the stove when done, remember to switch laundry). Rationale In order to maximize safety and independence with performance of self- care activities;In order to maximize safety and independence with ADL/IADLs;In order to maximize safety and independence with cognitive function within the home or community;In order to maximize independence with tasks requiring functional cognition/executive function for school, work, medication or financial mgmt Goal Progress Goal added and progressing. Pt educated in memory compensatory strategies, including lifestyle factors (physical and cognitive exercise, diet, vision/hearing, sleep, socialization, mental health) as well as specific strategies (attention, association, chunking/clustering, visualization, language-based strategies, repetition/rehearsal, organization, and external aids). Initiated cognitive HEP with speed card game and decoding tasks. Pt with 100% recall of game setup and game play with teach back method. Will plan to further progress as appropriate. Target Date 04/28/24 OT Goal 5 Goal Identifier Problem-Solving/Schedule Management Goal Description Pt will demonstrate the ability to complete moderate to complex problem-solving/planning tasks (WCPA, Errands, Candy Shop, SET, etc.) with 90% accuracy to complete home and work tasks safely and accurately (e.g. meal preparation, financial systems administrator, medication management, driving, work). Rationale In order to maximize safety and independence with performance of self- care activities;In order to maximize safety and independence with ADL/IADLs;In order to maximize safety and independence with cognitive function within the home or community;In order to maximize independence with tasks requiring functional cognition/executive function for school, work, medication or financial mgmt Goal Progress Goal added and progressing. Administered Health-Connected Shop part 1 activity with pt 100% accurate with alphabetizing, calculating individual quantities, and calculating total quantity. Will plan to further progress. Target Date 04/28/24 OT Goal 6 Goal Identifier UE HEP Goal Description Pt will demonstrate independent completion of HEP for UE strength/coordination to promote independence with ADLs/IADLs (e.g. retrieving object from cabinet or refrigerator, opening packages/containers, transporting objects). Rationale In order to maximize safety and independence with performance of self- care activities;In order to maximize safety and independence with ADL/IADLs Goal Progress Goal added and progressing. Briefly educated in AAROM stretches in doorway for shoulder flexion and for combined shoulder flexion and external rotation. Will plan to further progress. Target Date 04/28/24 Subjective Report Subjective Report Reports she is going up to visit her family in [place] following her appointment today. Reports she was able to do the decoding worksheet for HEP, did time herself for the 90 sec and wasable to get throught about 75% of it. Reports she has noticed difficulty with sensory perception (nu mbness/tingling in face and R side intermittently), pain perception, and thermoregulation. Asks forrecommendations. Objective Measures Objective Measures Objective Measure 1;Objective Measure 2;Objective Measure 3 Objective Measure 1 Objective Measure Dynavision Details As of 03/05/24 - Mode B (1.0 sec intervals): 57/70 hits (accuracy was 88% top L, 78% top R, 88% bottom R, 70% bottom L; WNLs is 42+ hits). Mode B divided attention: 49/68 hits with 10#s (accuracy was 61% top L, 100% top R, 70% bottom R, 57% bottom L; WNLs is 35+ hits and 9-10#s). As of 02/14/24 - Mode A: 67 hits (average reaction time 0.8 sec L side, 0.9 sec top R, 1.0 sec bottom R; WNLs is 52+ hits). Mode B (1.0 sec intervals): 66/77 hits (81% top L, 81% top R, 100% bottom R, 78% bottom L; WNLs is 42+ hits). Objective Measure 2 Objective Measure SDMT Details As of 03/11/24 - The Symbol Digit Modalities Test (SDMT) is a screening instrument commonly used to assess neurological skills like attention, perceptual speed, motor speed, and visual scanning. In 90 seconds, the pt completed 59 symbols (target score is 44-52 for patient's demographics and & gt;25 for safety with driving). Objective Measure 3 Objective Measure 9 Hole Peg Test Details As of 03/11/24 - R hand: 21.7 sec and L hand: 22.9 sec Treatment Interventions (OT) Interventions Self Care/Home Management;Therapeutic Activity;Cognitive Skills Cognitive Skills Cognitive Skills Intervention 1 Planning, problem-solving, schedule management Cognitive Skills Intervention 1 - Details To promote executive functioning (planning/organizing, attention to detail, memory, divided/alternating attention, sequencing, prioritization), facilitated Health-Connected Shop executive function activity with pt completing part 1 (alphabetizing, quantity of each order, total quantity for the month) with distractions throughout to simulate realistic, busy home/workenvironment. Pt 100% accurate today with alphabetizing, calculating individual quantities, and calculating total quantity without use of calculator. Pt does well with staying on task, managing and organizing information for Health-Connected Shop, using strategies of chunking information to calculate total quantity, and using extra paper to organize her thoughts. Will plan to further progress in future sessions. Patient Response/Progress Alcon reports feeling really good after Health-Connected Shop activity today - You challenged me in all the right ways today, and it felt good. Thank you! Goals 4-5 progressing Cognitive Skills Intervention 1st 15 Minutes Timed (31236) 15 Skilled Intervention Skilled facilitation of executive function task to promote skills for IND withhigher level IADL and work-based tasks Therapeutic Activity Therapeutic Activity Minutes (30188) 30 Skilled Intervention Skilled reassessment, education in HEP, and facilitation of collaboration of care and goal setting to promote skills for IND with ADLs/IADLs Patient Response/Progress Alcon expresses appreciation, looks forward to progressing new goal areas. Goals 1-3 met, 4-6 progressing Ther Act 1 Reassessment, collaboration of care and goal setting Ther Act 1 - Details With pt reporting difficulty with sensation perception, educated in sensory re-education options, including exposure to various temperatures and textures, as well as compensatorystrategies (wearing layers, hot/cold pack, water, etc.). Also recommended pt follow up with her doctor with her concerns to address any possible medical needs/interventions. To assess progress, administered SDMT and 9 Hole Peg Test - pt demonstrates objective improvement in SDMT and decrease in 9HPT score (see above) but reports subjective improvement with fine motor tasks like handwriting. Collaborated with pt regarding plan of care and needs with pt determining greatest concerns to be tightness and generalized deconditioning in RUE, as well as higher level skills for IADLs and eventual return to work. Updated goals accordingly. Education Learner/Method Patient;Listening;Reading;Pictures/Video;No Barriers to Learning Education Comments see tx details above Plan Home program ECWS (burners + basics). Mem ed/strategies + HEP (speed, decoding). Sensory and thermoregulation re-ed/compensatory strategies. Plan for next session *f/u trip to visit family in [place]. Cont. higher level IADL skills: 13 card trick, WCPA, Candy Shop part 2, dual-tasking for alternating attention. RUE strength/endurance (weights or theraband). Total Session Time Timed Code Treatment Minutes 45 Total Treatment Time (sum of timed and untimed services) 45 documented in this encounter Plan of Treatment Upcoming Encounters Date Type Department Care Team (Late st Contact Info) Description 06/08/2024 8:30 AM CDT Office Visit [facility] [address] [place] [phone] Denise Woodson Ra, AND RESCUE FIRE FIGHTER CRASH FIRE [facility] [address] [place] [address] documented as of this encounter [...] Mental Health weekly - PT, OT and HOOP DRIVING MACHINE OPERATOR HELPER - PCP appointment 03/17/24 - Neurology [...] clinic with 08/04 after hours services available. Buttoner will remain available as needed. documented as of this encounter Visit Diagnoses Diagnosis Cerebrovascular accident (CVA), unspecified mechanism (H)- Primary documented in this encounter Additional Health Concerns Active Problems Noted Date Diagnosed Date Increased risk of re-admission 02/18/2024 Assessment Noted Time PHQ-9 Depression Total Score: 16 024 3:27 PM CDT documented as of this encounter Care Teams Ranch Hand Relationship Specialty Start Date End Date Winston Villatoro OD [facility] [address] [facility] [address] [place] [address] PCP - Ophthalmology Ophthalmology 02/11/13 Denise Woodson Ra, APRN FELTMAKER AND WEIGHER [address] [address] PCP - General Family Practice 09/21/20 Denise Woodson Ra, APRN FELTMAKER AND WEIGHER [address] [address] Assigned PCP 07/17/20 Usha Simon APRN FELTMAKER AND WEIGHER [id number] [place] [address] Nurse Practitioner Neurological Surgery 01/24/24 Dangelo Salinas MD [address] [place] [address] Neurology 01/27/24 Anastasia Stearns, RN Lead Buttoner 02/06/24 Germaine Lopez, W Community Health Worker Primary Care - CC 02/18/24 Robin Zepeda MD [id number] [place] [address] Assigned Neuroscience Provider 03/08/24 documented as of this encounter
--- OUTSIDE RECORDS SUMMARY | 2024-05-07 18:45 | XMS_ITS | Encounter Summary ---
Author Organization [place] Address [address] [place] [address] Care Team Providers Care Prospect Manager Name Role Phone Winston Villatoro OD Unavailable [phone] Denise Woodson Ra, APRN BRANCH ASSOCIATE TELLER Unavailable [phone] Denise Woodson Ra, APRN BRANCH ASSOCIATE TELLER Primary Care Provid er Usha Simon APRN BRANCH ASSOCIATE TELLER Unavailable [phone] Dangelo Salinas MD Unavailable Anastasia Stearns RN Unavailable [phone] Germaine Lopez CHW Unavailable [phone] Robin Zepeda MD Unavailable [phone] Reason for Visit * Rehab Therapy Integrated Services (Routine) - Authorized Specialty Diagnoses / Procedures Referred By Nila shah Referred To Contact Diagnoses Cerebrovascular accident (CVA), unspecified mechanism (H) [address] [address] Referral ID Status Reason Start Date Expiration Date V isits Requested Visits Authorized [id number] Authorized 09/16/2023 09/15/2024 365 365 Encounter Details Date Type Department Care Team (Late st Contact Info) Description 03/17/2024 1:30 PM CDT Therapy Visit [address] [phone] Danya You, AMAIRANI [address] [place] [address] [address] [place] [address] Isabel Beaulieu, OTR [address] [address] Cerebrovascular accident (CVA), unspecified mechanism (H) (Primary [...] Never 02/28/2024 How often do you attend hoahaoism or taoist serv ices? Never 02/28/2024 Do [...] Answer Date Recorded PHQ-2 Score 0 03/17/2024 [facility] [place] of Occupat ional Health - Occupational Stress [...] Office Visit [facility] [address] [place] [address] Denise Woodson Ra, PSYCHOLOGISTS BRANCH ASSOCIATE TELLER [address] [address] [id number] documented as of this encounter Goals Goal [...] Mental Health weekly - PT, OT and MEN'S CUSTOM HAIR PIECE CONSULTANT - PCP appointment 03/17/24 - Neurology 05/05/24, [...] clinic with 08/04 after hours services available. Graduate Engineer will remain available as needed. documented as of this encounter Visit Diagnoses Diagnosis Cerebrovascular accident (CVA), unspecified mechanism (H)- Primary documented in this encounter Additional Health Concerns Active Problems Noted Date Diagnosed Date Increased risk of re-admission 02/18/2024 Assessment Noted Time PHQ-9 Depression Total Score: 5 03/17/20 24 9:45 AM CDT documented as of this encounter Care Teams Prospect Manager Relationship Specialty Start Date End Date Winston Villatoro OD [facility] [place] [address] [place] [address] PCP - Ophthalmology Ophthalmology 02/11/13 Denise Woodson Ra, PSYCHOLOGISTS BRANCH ASSOCIATE TELLER [address] [address] PCP - General Family Practice 09/21/20 Denise Woodson Ra, APRN BRANCH ASSOCIATE TELLER [address] [facility] [place] [address] Assigned PCP 07/17/20 Usha Simon APRN BRANCH ASSOCIATE TELLER [address] [address], [place] [address] Nurse Practitioner Neurological Surgery 01/24/24 Dangelo Salinas MD [address] [place] [address] Neurology 01/27/24 Anastasia Stearns, RN Lead Graduate Engineer 02/06/24 Germaine Lopez, W Community Health Worker Primary Care - CC 02/18/24 Robin Zepeda MD [address] [id number], [place] [address] Assigned Neuroscience Provider 03/08/24 documented as of this encounter
--- OUTSIDE RECORDS SUMMARY | 2024-05-07 18:45 | XMS_ITS | Encounter Summary ---
Author Organization [place] Address [address] [place] [address] Care Team Providers Care Industrial Boilermaker Name Role Phone ShaunaWinston OD Unavailable [phone] Denise Woodson Ra, APRN PROPERTY AND CASUALTY INSURANCE AGENT Unavailable [phone] Denise Woodson Ra, APRN PROPERTY AND CASUALTY INSURANCE AGENT Primary Care Provid er Usha Simon APRN PROPERTY AND CASUALTY INSURANCE AGENT Unavailable [phone] Dangelo Salinas MD Unavailable Anastasia Stearns RN Unavailable [phone] Germaine Lopez CHW Unavailable [phone] Robin Zepeda MD Unavailable [phone] Encounter Details Date Type Department Care Team (Latest Contact Info) Description 03/26/2024 Travel Social History Tobacco Use Types Packs/Day [...] Never 02/28/2024 How often do you attend oriental orthodox or quaker serv ices? Never 02/28/2024 Do you belong to any clubs o r organizations such as oriental orthodox groups, unions, fraternal or athletic groups, or [...] Answer Date Recorded PHQ-2 Score 0 03/17/2024 [facility] of Occupat ional Health - [...] Description 06/08/2024 8:30 AM CDT Office Visit [facility] [address] [place] [phone] Denise Woodson Ra, CHUCK BONER PROPERTY AND CASUALTY INSURANCE AGENT [address] [place] [address] documented as of this encounter Goals Goal [...] Mental Health weekly - PT, OT and MANAGER ONLINE - PCP appointment 03/17/24 - Neurology 05/05/24, [...] clinic with 24/7 after hours services available. Range Scientist will remain available as needed. documented as of this encounter Visit Diagnoses Not on filedocumented in this encounter Additional Health Concerns Active Problems Noted Date Diagnosed Date Increased risk of re-admission 02/18/2024 Assessment Noted Time PHQ-9 Depression Total Score: 5 03/17/20 24 9:45 AM CDT documented as of this encounter Care Teams Industrial Boilermaker Relationship Specialty Start Date End Date ShaunaWinston moralez OD [facility] [address] [facility] [address] [place] [address] PCP - Ophthalmology Ophthalmology 02/11/13 Denise Woodson Ra, APRN PROPERTY AND CASUALTY INSURANCE AGENT [address] [place] [address] PCP - General Family Practice 09/21/20 Denise Woodson Ra, APRN PROPERTY AND CASUALTY INSURANCE AGENT [address] [place] [address] Assigned PCP 07/17/20 Usha Simon APRN PROPERTY AND CASUALTY INSURANCE AGENT [address] [facility], [place] [address] Nurse Practitioner Neurological Surgery 01/24/24 Dangelo Salinas MD [address] [id number] Neurology 01/27/24 Anastasia Setarns, RN Lead Range Scientist 02/06/24 Germaine Lopez, W Community Health Worker Primary Care - CC 02/18/24 Robin Zepeda MD [address] [facility] [address] Assigned Neuroscience Provider 03/08/24 documented as of this encounter
--- OUTSIDE RECORDS SUMMARY | 2024-05-07 18:46 | XMS_ITS | Encounter Summary ---
Author Organization [place] Address [address] [place] [address] Care Team Providers Care 911 Emergency Dispatcher Name Role Phone Winston Villatoro OD Unavailable [phone] Denise Woodson Ra, APRN FILTERATION OPERATOR Unavailable + [phone] Denise Woodson Ra PRESS OPERATOR ASSISTANT FILTERATION OPERATOR Primary Care Provid er Usha Simon APRN FILTERATION OPERATOR Unavailable [phone] Dangelo Salinas MD Unavailable Usha Simon PRESS OPERATOR ASSISTANT FILTERATION OPERATOR Unavailable [phone] Anastasia Stearns RN Unavailable [phone] Germaine Lopez CHW Unavailable Encounter Details Date Type Department Care Team (Late st Contact Info) Description 03/02/2024 [facility] Only [facility] [employer] [address] [place] [address] Liliane Mcnair, [place] [address] [place] [address] Hematuria, unspecified type (Primary Dx) Social History Tobacco Use Types [...] Never 02/28/2024 How often do you attend congregation or anglican serv ices? Never 02/28/2024 Do you belong to any clubs o r organizations such as congregation groups, unions, fraternal or athletic groups, or [...] Answer Date Recorded PHQ-2 Score 4 02/12/2024 [facility] Occupat ional Health [...] Description 06/08/2024 8:30 AM CDT Office Visit [facility] [address] [place] [address] Densie Woodson Ra, PRESS OPERATOR ASSISTANT [facility] [address] [place] [address] Scheduled Orders Name Type Priority Associated Diagnoses Orde r Schedule UA Macroscopic with reflex to Microscopic and Culture - Clinic Collect Lab Routine Hematuria, unspecified type Ordered: 03/02/2024 documented as of this encounter Goals Goal [...] Mental Health weekly - PT, OT and CARDBOARD INSERTER - PCP appointment 03/17/24 - Neurology 05/05/24, [...] clinic with 08/04 after hours services available. Freight Rate Clerk will remain available as needed. documented as of this encounter Visit Diagnoses Diagnosis Hematuria, unspecified type- Primary documented in this encounter Additional Health Concerns Active Problems Noted Date Diagnosed Date Increased risk of re-admission 02/18/2024 Assessment Noted Time PHQ-9 Depression Total Score: 16 024 3:27 PM CDT documented as of this encounter Care Teams 911 Emergency Dispatcher Relationship Specialty Start Date End Date Winston Villatoro OD [facility] [address] [facility] [address] [place] [address] PCP - Ophthalmology Ophthalmology 02/11/13 Denise Woodson Ra, APRN FILTERATION OPERATOR [address] [place] [address] PCP - General Family Practice 09/21/20 Denise Woodson Ra, APRN FILTERATION OPERATOR [address] [place] [address] Assigned PCP 07/17/20 Usha Simon APRN FILTERATION OPERATOR [address] [facility] [place] [address] Nurse Practitioner Neurological Surgery 01/24/24 Dangelo Salinas MD [address] [place], [place] [id number] Neurology 01/27/24 Usha Simon APRN FILTERATION OPERATOR [address] [facility] [address] Assigned Neuroscience Provider 02/06/24 03/07/24 Anastasia Stearns, RN Lead Freight Rate Clerk 02/06/24 Germaine Lopez, CHW Community Health Worker Primary Care - CC 02/18/24 documented as of this encounter
--- OUTSIDE RECORDS SUMMARY | 2024-05-07 18:46 | XMS_ITS | Encounter Summary ---
Author Organization [place] Address [address] [place] [address] Care Team Providers Care Desktop Support Consultant Name Role Phone Winston Villatoro OD Unavailable [phone] Denise Woodson Ra, APRN PARACHUTE ACCESSORIES ATTACHER Unavailable +- [phone] Denise Woodson Ra, APRN PARACHUTE ACCESSORIES ATTACHER Primary Care Provid er Usha Simon APRN PARACHUTE ACCESSORIES ATTACHER Unavailable [phone] Dangelo Salinas MD Unavailable Usha Simon APRN PARACHUTE ACCESSORIES ATTACHER Unavailable [phone] Anastasia Stearns RN Unavailable [phone] Germaine Lopez CHW Unavailable [phone] Encounter Details Date Type Department Care Team (Latest Contact Info) Description 02/27/2024 Travel Social History Tobacco Use Types Packs/Day [...] Never 02/28/2024 How often do you attend jainism or jewish serv ices? Never 02/28/2024 Do you belong to any clubs o r organizations such as jainism groups, unions, fraternal or athletic groups, or [...] Answer Date Recorded PHQ-2 Score 4 02/12/2024 [facility] of Occupat ional Health [...] Description 06/08/2024 8:30 AM CDT Office Visit [facility] [address] [place] [address] Denise Woodson Ra, ASSET MANAGEMENT COORDINATOR PARACHUTE ACCESSORIES ATTACHER [address] [place], [place] [id number] documented as of this encounter Goals Goal [...] Mental Health weekly - PT, OT and BLEACHER KRAFT PULP - PCP appointment 03/17/24 - Neurology 05/05/24, [...] clinic with 24/7 after hours services available. Charge Operator will remain available as needed. documented as of this encounter Visit Diagnoses Not on filedocumented in this encounter Additional Health Concerns Active Problems Noted Date Diagnosed Date Increased risk of re-admission 02/18/2024 Assessment Noted Time PHQ-9 Depression Total Score: 16 024 3:27 PM CDT documented as of this encounter Care Teams Desktop Support Consultant Relationship Specialty Start Date End Date Winston Villatoro OD [facility] [address] [facility] [address] [place] [address] PCP - Ophthalmology Ophthalmology 02/11/13 Denise Woodson Ra, APRN PARACHUTE ACCESSORIES ATTACHER [address] [place] [address] PCP - General Family Practice 09/21/20 Denise Woodson Ra, APRN PARACHUTE ACCESSORIES ATTACHER [address] [place] [address] Assigned PCP 07/17/20 Usha Simon APRN PARACHUTE ACCESSORIES ATTACHER [address] [place] [address] Nurse Practitioner Neurological Surgery 01/24/24 Dangelo Salinas MD [address] [facility] [address] [address] [address] Neurology 01/27/24 Usha Simon APRN PARACHUTE ACCESSORIES ATTACHER [address] [place] [address] Assigned Neuroscience Provider 02/06/24 03/07/24 Anastasia Stearns, RN Lead Charge Operator 02/06/24 Germaine Lopez, W Community Health Worker Primary Care - CC 02/18/24 documented as of this encounter
--- OUTSIDE RECORDS SUMMARY | 2024-05-07 18:46 | XMS_ITS | Encounter Summary ---
Author Organization [place] Address [address] [place] [address] Care Team Providers Care Manager Hotel Name Role Phone Winston Villatoro OD Unavailable [phone] Denise Woodson Ra, APRN BELLPERSON Unavailable [phone]- [phone] Denise Woodson Ra COLD MILL INSPECTOR BELLPERSON Primary Care Provid er Usha Simon APRN BELLPERSON Unavailable [phone] Dangelo Salinas MD Unavailable Usha Simon APRN BELLPERSON Unavailable [phone] Anastasia Stearns RN Unavailable [phone] Germaine Lopez CHW Unavailable [phone] Reason for Visit * Rehab Therapy Integrated Services (Routine) - Authorized Specialty Diagnoses / Procedures Referred By Nila t Referred To Contact Diagnoses Cerebrovascular accident (CVA), unspecified mechanism (H) [address] [address] Referral ID Status Reason Start Date Expiration Date V isits Requested Visits Authorized [id number] Authorized 09/16/2023 09/15/2024 365 365 Encounter Details Date Type Department Care Team (Latest Contact Info) Description 03/05/2024 3:15 PM CDT Therapy Visit [address] [id number] Danya You, PA [address] [place], [place] [address] [place] [address] Charis Chacon, [facility] [address] [place] [address] Cerebrovascular accident (CVA), unspecified mechanism (H) (Primary [...] How often do you attend sabianism or confucianism serv ices? Never 02/28/2024 Do you belong [...] Answer Date Recorded PHQ-2 Score 4 02/12/2024 [facility] [place] of Occupat ional Health - Occupational Stress [...] Description 06/08/2024 8:30 AM CDT Office Visit [address] [address] Denise Woodson Ra, COLD MILL INSPECTOR BELLPERSON [address] [place] [address] documented as of this encounter Goals Goal [...] Mental Health weekly - PT, OT and AUTO BODY TECHNICIAN - PCP appointment 03/17/24 - Neurology 05/05/24, [...] clinic with 08/04 after hours services available. Methods Study Analyst will remain available as needed. documented as of this encounter Visit Diagnoses Diagnosis Cerebrovascular accident (CVA), unspecified mechanism (H)- Primary Cognitive communication deficit documented in this encounter Additional Health Concerns Active Problems Noted Date Diagnosed Date Increased risk of re-admission 02/18/2024 Assessment Noted Time PHQ-9 Depression Total Score: 16 024 3:27 PM CDT documented as of this encounter Care Teams Manager Hotel Relationship Specialty Start Date End Date Winston Villatoro OD [facility] [place] [address] [place] [address] PCP - Ophthalmology Ophthalmology 02/11/13 Denise Woodson Ra, COLD MILL INSPECTOR BELLPERSON [address] [place] [address] PCP - General Family Practice 09/21/20 Denise Woodson Ra, APRN BELLPERSON [address] [place] [address] Assigned PCP 07/17/20 Usha Simon APRN BELLPERSON [address] [place] [id number] [place] [address] Nurse Practitioner Neurological Surgery 01/24/24 Dangelo Salinas MD [address] [place] [address] Neurology 01/27/24 Usha Simon APRN BELLPERSON [address] [place] [id number] [place] [address] Assigned Neuroscience Provider 02/06/24 03/07/24 Anastasia Stearns, RN Lead Methods Study Analyst 02/06/24 Germaine Lopez, CHW Community Health Worker Primary Care - CC 02/18/24 documented as of this encounter
--- OUTSIDE RECORDS SUMMARY | 2024-05-07 18:46 | XMS_ITS | Encounter Summary ---
Author Organization [place] Address [address] [place] [address] Care Team Providers Care Import Coordinator Name Role Phone Winston Villatoro OD Unavailable Denise Woodson Ra, APRN EQUINE DENTIST Unavailable + [phone] Denise Woodson Ra, APRN EQUINE DENTIST Primary Care Provid er Usha Simon APRN EQUINE DENTIST Unavailable [phone] Dangelo Salinas MD Unavailable Usha Simon APRN EQUINE DENTIST Unavailable [phone] Anastasia Stearns RN Unavailable Germaine Lopez CHW Unavailable [phone] Reason for Referral * Diagnostic Imaging CT Scan (Routine) - Closed Specialty Diagnoses / Procedures Referred By Contac t Referred To Contact Radiology. Diagnoses Flank pain Abdominal pain, epigastric Procedures CT Abdomen Pelvis w Contrast Janna Jo APRN CNP [address] [place] [address] Referral ID Status Reason Start Date Expiration Date Visits Re quested Visits Authorized [id number] Closed 02/28/2024 02/27/2025 1 1 Reason for Visit * Diagnostic Imaging CT Scan (Routine) - Closed Specialty Diagnoses / Procedures Referred By Contac t Referred To Contact Radiology. Diagnoses Flank pain Abdominal pain, epigastric Procedures CT Abdomen Pelvis w Contrast Janna Jo APRN EQUINE DENTIST [address] [place] [address] Referral ID Status Reason Start Date Expiration Date Visits Re quested Visits Authorized [id number] Closed 02/28/2024 02/27/2025 1 1 Encounter Details Date Type Department Care Team (Latest Contact Info) Description 02/28/2024 10:46 AM CDT - 02/28/2024 11:59 PM CDT Hospital Encounter [facility] [address] [place] [address] Janna Jo APRN EQUINE DENTIST [address] [place] [address] Flank pain; Abdominal pain, epigastric Discharge Disposition: Home or Self Care Social [...] How often do you attend hoahaoism or yazdanism serv ices? Never 02/28/2024 Do you belong [...] Answer Date Recorded PHQ-2 Score 4 02/12/2024 [facility] of Occupat ional Health - [...] in an abandoned building, in an overnight longterm, or couch-surfing.) Yes 02/28/2024 Are you worried [...] by mouth 2 times daily 60 tablet 02/14/2024 03/06/2024 rosuvastatin (CRESTOR) 20 MG tabletIndications:Cer ebrovascular accident (CVA), unspecified mechanism (H) Take 1 tablet (20 mg) by mouth at bedtime 30 tablet 02/14/2024 03/06/2024 documented as of this encounter Plan of Treatment Upcoming Encounters Date Type Department Care Team (Late st Contact Info) Description 06/08/2024 8:30 AM CDT Office Visit [facility] [address] [place] [address] Denise Woodson Ra, COPY CAMERA OPERATOR EQUINE DENTIST [address] [place], [place] [address] documented as of this encounter Goals Goal [...] Health weekly - PT, OT and MARINE RIGGER - PCP appointment 03/17/24 - Neurology 05/05/24, [...] clinic with 24/7 after hours services available. Applications Packager will remain available as needed. documented as of this encounter Procedures Procedure Name Priority Date/Time Associated Diagnosis Comments CT ABDOMEN PELVIS W CONTRAST STAT 02/28/2024 10:59 AM CDT Flank pain Abdominal pain, epigastric documented in this encounter Results * CT Abdomen Pelvis w Contrast (02/28/2024 10:59 AM CDT) Anatomical Region Laterality Modality Abdomen/Pelvis, SUBRAD CT ALEJANDRA DY, UMP CT ABDOMEN PELVIS, RAD CT Computed Tomography Impressions 02/28/2024 11:22 AM CDT IMPRESSION: No acute abnormality in the abdomen or pelvis. No cause for abdominal pain is identified. JASVIR HARRIS MD Narrative 02/28/2024 11:[address] ABDOMEN AND PELVIS WITH CONTRAST 02/28/2024 10:59 AM CLINICAL HISTORY: Upper abdominal pain. TECHNIQUE: CT scan of the abdomen and pelvis was performed following injection of IV contrast. Multiplanar reformats were obtained. Dose reduction techniques were used. CONTRAST: 100 mL Isovue-370 COMPARISON: CT of the abdomen and pelvis 05/21/2006. FINDINGS: LOWER CHEST: Unremarkable. HEPATOBILIARY: No hepatic masses. Cholecystectomy. PANCREAS: Normal. SPLEEN: Normal. ADRENAL GLANDS: Normal. KIDNEYS/BLADDER: Small cyst in the lower pole of the right kidney would require no specific follow-up. No hydronephrosis. BOWEL: No bowel obstruction. Few scattered sigmoid diverticula. No evidence for colitis or diverticulitis. Unremarkable appendix. LYMPH NODES: No lymphadenopathy. VASCULATURE: Unremarkable. PELVIC ORGANS: Hysterectomy. ADDITIONAL FINDINGS: None. MUSCULOSKELETAL: Unchanged hemangioma in the T11 vertebral body. Procedure Note Jasvir Harris MD - 02/28/2024 CT ABDOMEN AND PELVIS WITH CONTRAST 02/28/2024 10:59 AM CLINICAL HISTORY: Upper abdominal pain. TECHNIQUE: CT scan of the abdomen and pelvis was performed following injection of IV contrast. Multiplanar reformats were obtained. Dose reduction techniques were used. CONTRAST: 100 mL Isovue-370 COMPARISON: CT of the abdomen and pelvis 05/21/2006. FINDINGS: LOWER CHEST: Unremarkable. HEPATOBILIARY: No hepatic masses. Cholecystectomy. PANCREAS: Normal. SPLEEN: Normal. ADRENAL GLANDS: Normal. KIDNEYS/BLADDER: Small cyst in the lower pole of the right kidney would require no specific follow-up. No hydronephrosis. BOWEL: No bowel obstruction. Few scattered sigmoid diverticula. No evidence for colitis or diverticulitis. Unremarkable appendix. LYMPH NODES: No lymphadenopathy. VASCULATURE: Unremarkable. PELVIC ORGANS: Hysterectomy. ADDITIONAL FINDINGS: None. MUSCULOSKELETAL: Unchanged hemangioma in the T11 vertebral body. IMPRESSION: No acute abnormality in the abdomen or pelvis. No cause for abdominal pain is identified. JASVIR HARRIS MD Janna Maranda Jo APRN, CNP IMG CT ORDER NASRIN documented in this encounter Visit Diagnoses Diagnosis Flank pain Abdominal pain, unspecified site Abdominal pain, epigastric documented in this encounter Administered Medications Inactive Administered Medications - up to 3 most recent administrations Medication Order MAR Action Action Date Dose Rate Site CT Saline Flush Intravenous, 100 mL, ONCE, On Sat02/28/24 at 1100, For 1 dose, This entry is for use by Radiology to intermittently used as a flush in patients receiving a CT scan. $Given 02/28/2024 10:52 AM CDT 65 mLs iopamidol (ISOVUE-370) solution 500 mL 500 mL, Intravenous, ONCE, On Sat02/28/24 at 1100, For 1 dose $Given 02/28/2024 10:52 AM CDT 100 mLs documented in this encounter Additional Health Concerns Active Problems Noted Date Diagnosed Date Increased risk of re-admission 02/18/2024 Assessment Noted Time PHQ-9 Depression Total Score: 16 024 3:27 PM CDT documented as of this encounter Care Teams Import Coordinator Relationship Specialty Start Date End Date Winston Villatoro OD [facility] [address] [facility] [address] [place] [address] PCP - Ophthalmology Ophthalmology 02/11/13 Denise Woodson Ra, APRN EQUINE DENTIST [address] [place] [address] PCP - General Family Practice 09/21/20 Denise Woodson Ra, APRN EQUINE DENTIST [address] [place] [address] Assigned PCP 07/17/20 Usha Simon APRN EQUINE DENTIST [address] [address] Nurse Practitioner Neurological Surgery 01/24/24 Dangelo Salinas MD [address] [place] [address] Neurology 01/27/24 Usha Simon APRN EQUINE DENTIST [address] [address] Assigned Neuroscience Provider 02/06/24 03/07/24 Anastasia Stearns, RN Lead Applications Packager 02/06/24 Germaine Lopez, CHW Community Health Worker Primary Care - CC 02/18/24 documented as of this encounter
--- OUTSIDE RECORDS SUMMARY | 2024-05-07 18:46 | XMS_ITS | Encounter Summary ---
Author Organization [place] Address [address] [place] [address] Care Team Providers Care Delicatessen Goods Stock Clerk Name Role Phone Winston Villatoro OD Unavailable [phone] Denise Woodson Ra, APRN AUTO TRANSMISSION TECHNICIAN Unavailable [phone]- [phone] Denise Woodson Ra, APRN AUTO TRANSMISSION TECHNICIAN Primary Care Provid er Usha Simon APRN AUTO TRANSMISSION TECHNICIAN Unavailable [phone] Dangelo Salinas MD Unavailable Anastasia Stearns RN Unavailable [phone] Germaine Lopez CHW Unavailable Robin Zepeda MD Unavailable Reason for Visit * Reason Onset Date Comments Call Back 03/09/2024 Follow up appoin tment Encounter Details Date Type Department Care Team ([facility] st Contact Info) Description 03/09/2024 Telephone [facility] [address] [place] [address] Raul Hoyos MD [address] [place] [address] [id number] [address] Call Back (Follow up appointment ) Social History Tobacco Use Types Packs/Day [...] Never 02/28/2024 How often do you attend voodoo or anglican serv ices? Never 02/28/2024 Do you belong to any clubs o r organizations such as voodoo groups, unions, fraternal or athletic groups, or [...] Answer Date Recorded PHQ-2 Score 4 02/12/2024 [facility] of Occupat ional Health - [...] encounter Miscellaneous Notes * Telephone Encounter - Filemon Jeter Mail - 03/09/2024 4:04 PM CDT [facility] Call Center Phone Message May a detailed message be left on voicemail: yes Reason for Call: Other: Germaine Lopez, Pole Framer Machine, calling to see if the patient should be scheduled for a follow up visit with Dr Hoyos for the stroke. 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 Germaine states the patient needs help managing her Keppra and has been cutting tablets in half on her own. Germaine requesting the clinic review and discuss if follow up with Dr Hoyos or Stroke provider is appropriate. Germaine's call back #[phone] or she states may call patient to schedule if appropriate Action Taken: Message routed to: [facility] Neurology Travel Screening: Not Applicable documented in this encounter Plan of Treatment Upcoming Encounters Date Type Department Care Team (Late st Contact Info) Description 06/08/2024 8:30 AM CDT Office Visit [facility] [address] [place] [address] Denise Woodson Ra, COPY TECHNICIAN AUTO TRANSMISSION TECHNICIAN [address] [place] [address] documented as of this encounter Goals Goal [...] Mental Health weekly - PT, OT and SEISMOGRAPH OPERATOR - PCP appointment 03/17/24 - Neurology [...] clinic with 24/7 after hours services available. Pole Framer Machine will remain available as needed. documented as of this encounter Visit Diagnoses Not on filedocumented in this encounter Additional Health Concerns Active Problems Noted Date Diagnosed Date Increased risk of re-admission 02/18/2024 Assessment Noted Time PHQ-9 Depression Total Score: 16 024 3:27 PM CDT documented as of this encounter Care Teams Delicatessen Goods Stock Clerk Relationship Specialty Start Date End Date Winston Villatoro, OD [facility] [place] [address] [place] [address] PCP - Ophthalmology Ophthalmology 02/11/13 Denise Woodson Ra, COPY TECHNICIAN AUTO TRANSMISSION TECHNICIAN [address] [place] [address] PCP - General Family Practice 09/21/20 Denise Woodson Ra, COPY TECHNICIAN AUTO TRANSMISSION TECHNICIAN [address] [address] [place], [place] [id number] Assigned PCP 07/17/20 Usha Simon APRN AUTO TRANSMISSION TECHNICIAN [address] 8647[address] Nurse Practitioner Neurological Surgery 01/24/24 Dangelo Salinas MD [address] [place], [place] [id number] Neurology 01/27/24 Anastasia Stearns, RN Lead Pole Framer Machine 02/06/24 Germaine Lopez, W Community Health Worker Primary Care - CC 02/18/24 Robin Zepeda MD [address] [address] Assigned Neuroscience Provider 03/08/24 documented as of this encounter
--- OUTSIDE RECORDS SUMMARY | 2024-05-07 18:46 | XMS_ITS | Encounter Summary ---
Author Organization [facility] Address [address] [place] [address] Care Team Providers Care Applied Mathematician Name Role Phone Winston Villatoro OD Unavailable [phone] Denise Woodson Ra, APRN SILK OPENER Unavailable [phone] Denise Woodson Ra OVERHEAD CLEANER MAINTAINER SILK OPENER Primary Care Provid er Usha Simon APRN SILK OPENER Unavailable [phone] Dangelo Salinas MD Unavailable Usha Simon APRN SILK OPENER Unavailable [phone] Anastasia Stearns RN Unavailable [phone] Germaine Lopez CHW Unavailable [phone] Reason for Visit * Rehab Therapy Integrated Services (Routine) - Authorized Specialty Diagnoses / Procedures Referred By Nila t Referred To Contact Diagnoses Cerebrovascular accident (CVA), unspecified mechanism (H) [address] [address] Referral ID Status Reason Start Date Expiration Date V isits Requested Visits Authorized [id number] Authorized 09/16/2023 09/15/2024 365 365 Encounter Details Date Type Department Care Team (Late st Contact Info) Description 03/05/2024 4:15 PM CDT Therapy Visit [address] [address] Danya You, PA [address] [place] [address] [address] [place] [address] Delicia George, PT [address] [place] [address] Cerebrovascular accident (CVA), unspecified mechanism [...] How often do you attend episcopal or mormonism serv ices? Never 02/28/2024 Do [...] Answer Date Recorded PHQ-2 Score 4 02/12/2024 [facility] [place] Occup[facility] ional [facility] - Occupational Stress [...] * Patient Instructions* Delicia George, PT - 03/05/2024 4:15 PM CDT Physical therapy notes 03/05/24: Standing with your back in the corner or toward a wall - not touching. Reach down toward your feet,then stand up and look up toward the ceiling. Repeat for 30 seconds. Move quickly to make this morechallenging. Standing with your back in the corner or toward a wall - not touching. Twist to tap one wall then the other with your opposite hand. Tap at eye level on each side. Progress by adding an alternating tap at knee level, then eye level. Repeat for 30 seconds. Walk and turn your head and eyes side to side for 30 seconds. Repeat turning your head and eyes up and down for 30 seconds. documented in this encounter Plan of Treatment Upcoming Encounters Date Type Department Care Team (Late st Contact Info) Description 06/08/2024 8:30 AM CDT Office Visit [facility] [address] [place] [address] Denise Woodson Ra, OVERHEAD CLEANER MAINTAINER [facility] [address] [place], [place] [id number] documented as of this encounter Goals Goal [...] Mental Health weekly - PT, OT and WHARF WORKER - PCP appointment 03/17/24 - Neurology [...] clinic with 08/04 after hours services available. Container Washer will remain available as needed. documented as of this encounter Visit Diagnoses Diagnosis Cerebrovascular accident (CVA), unspecified mechanism (H)- Primary documented in this encounter Additional Health Concerns Active Problems Noted Date Diagnosed Date Increased risk of re-admission 02/18/2024 Assessment Noted Time PHQ-9 Depression Total Score: 16 024 3:27 PM CDT documented as of this encounter Care Teams Applied Mathematician Relationship Specialty Start Date End Date Winston Villatoro OD [facility] [address] [facility] [address] [place] [address] PCP - Ophthalmology Ophthalmology 02/11/13 Denise Woodson Ra, APRN SILK OPENER [address] [facility] [place] [address] PCP - General Family Practice 09/21/20 Denise Woodson Ra, APRN SILK OPENER [address] [facility] [place] [address] Assigned PCP 07/17/20 Usha Simon APRN SILK OPENER [address] [place] [address] Nurse Practitioner Neurological Surgery 01/24/24 Dangelo Salinas MD [address] [address] [address] Neurology 01/27/24 Usha Simon APRN SILK OPENER [address] [address] Assigned Neuroscience Provider 02/06/24 03/07/24 Anastasia Stearns RN Lead Container Washer 02/06/24 Germaine Lopez, W Community Health Worker Primary Care - CC 02/18/24 documented as of this encounter
--- OUTSIDE RECORDS SUMMARY | 2024-05-07 18:46 | XMS_ITS | Encounter Summary ---
Author Organization [facility] Address [address] [place] [address] Care Team Providers Care Belt Weaver Name Role Phone Winston Villatoro OD Unavailable [phone] Denise Woodson Ra, APRN SCRATCH POLISHER Unavailable [phone] Denise Woodson Ra, APRN SCRATCH POLISHER Primary Care Provid er Usha Simon APRN SCRATCH POLISHER Unavailable [phone] Dangelo Salinas MD Unavailable Usha Simon APRN SCRATCH POLISHER Unavailable [phone] Anastasia Stearns RN Unavailable [phone] Germaine Lopez CHW Unavailable [phone] Encounter Details Date Type Department Care Team (Latest Contact Info) Description 03/03/2024 Travel Social History Tobacco Use Types Packs/Day [...] Never 02/28/2024 How often do you attend judaism or anglican serv ices? Never 02/28/2024 Do you belong to any clubs o r organizations such as judaism groups, unions, fraternal or athletic groups, or [...] Answer Date Recorded PHQ-2 Score 4 02/12/2024 [facility] ional [facility] - Occupational [...] Description 06/08/2024 8:30 AM CDT Office Visit [facility] [address] [place] [address] Denise Woodson Ra, CONVENIENCE STORE CLERK SCRATCH POLISHER [address] [place], [place] [id number] documented as of this encounter Goals Goal [...] Mental Health weekly - PT, OT and DETENTION SERGEANT - PCP appointment 03/17/24 - Neurology 05/05/24, [...] clinic with 24/7 after hours services available. Toolroom Attendant will remain available as needed. documented as of this encounter Visit Diagnoses Not on filedocumented in this encounter Additional Health Concerns Active Problems Noted Date Diagnosed Date Increased risk of re-admission 02/18/2024 Assessment Noted Time PHQ-9 Depression Total Score: 16 024 3:27 PM CDT documented as of this encounter Care Teams Belt Weaver Relationship Specialty Start Date End Date Winston Villatoro OD [facility] [address] [facility] [address] [place] [address] PCP - Ophthalmology Ophthalmology 02/11/13 Denise Woodson Ra, APRN SCRATCH POLISHER [address] [place] [address] PCP - General Family Practice 09/21/20 Denise Woodson Ra, APRN SCRATCH POLISHER [address] [place] [address] Assigned PCP 07/17/20 Usha Simon APRN SCRATCH POLISHER [address] [place] [id number] Nurse Practitioner Neurological Surgery 01/24/24 Dangelo Salinas MD [address] [facility] [address] [address] Neurology 01/27/24 Usha Simon APRN SCRATCH POLISHER [address] [place] [address] Assigned Neuroscience Provider 02/06/24 03/07/24 Anastasia Stearns, RN Lead Toolroom Attendant 02/06/24 Germaine Lopez, W Community Health Worker Primary Care - CC 02/18/24 documented as of this encounter
--- OUTSIDE RECORDS SUMMARY | 2024-05-07 18:46 | XMS_ITS | Encounter Summary ---
Author Organization [facility] Address [address] [place] [address] Care Team Providers Care Machine Tender Name Role Phone Winston Villatoro OD Unavailable [phone] Denise Woodson Ra, APRN PROCESS COORDINATOR Unavailable [phone] Denise Woodson Ra MARINE CONSULTANT PROCESS COORDINATOR Primary Care Provid er Usha Simon APRN PROCESS COORDINATOR Unavailable [phone] Dangelo Salinas MD Unavailable Usha Simon MARINE CONSULTANT PROCESS COORDINATOR Unavailable [phone] Anastasia Stearns RN Unavailable [phone] Germaine Lopez CHW Unavailable Reason for Visit * Reason Comments Flank Pain Encounter Details Date Type Department Care Team (Late st Contact Info) Description 03/03/2024 11:14 AM CDT - 03/03/2024 2:[address] [facility] Emergency Dept [address] [place] [address] Brayan Reich MD [facility] [address] [place] [address] Right flank pain; Right sided abdominal pain Discharge Disposition: Home or Self Care Social [...] Never 02/28/2024 How often do you attend faith or yarsani serv ices? Never 02/28/2024 Do you belong to any clubs o r organizations such as faith groups, unions, fraternal or athletic groups, or [...] Answer Date Recorded PHQ-2 Score 4 02/12/2024 [facility]ational Stress Questionnaire Answer [...] Sign Reading Time Taken Comments Blood Pressure 130/76 03/03/2024 2:18 PM CDT Pulse 72 03/03/2024 2:18 PM CDT Temperature 36.6 ??C (97.9 ??F) 03/03/2024 10:18 AM C DT Respiratory Rate 14 03/03/2024 2:18 PM CDT Oxygen Saturation 97% 03/03/2024 2:18 PM CDT Inhaled Oxygen Concentration - - Weight 96.2 kg (212 lb) 03/03/2024 10:18 AM CDT Height 167.6 cm (5' 6) 03/03/2024 10:18 AM CDT Body Mass Index 34.22 03/03/2024 10:18 AM CDT documented in this encounter Discharge Instructions * Discharge Instructions* Brayan Reich MD - 03/03/2024 2:11 PM CDT Discharge Instructions Abdominal Pain Abdominal pain (belly pain) can be caused by many things. Your evaluation today does not show the exact cause for your pain. Your provider today has decided that it is unlikely your pain is due to a life threatening problem, or a problem requiring surgery or hospital admission. Sometimes those problems cannot be found right away, so it is very important that you follow up as directed. Sometimes only the changes which occur over time allow the cause of your pain to be found. Generally, every Emergency Department visit should have a follow-up clinic visit with either a primary or a specialty clinic/provider. Please follow-up as instructed by your emergency provider today.With abdominal pain, we often recommend very close follow-up, such as the following day. ADULTS: Return to the Emergency Department right away if: You get an oral temperature above 102oF or as directed by your provider. You have blood in your stools. This may be bright red or appear as black, tarry stools. You keep vomiting (throwing up) or cannot drink liquids. You see blood when you vomit. You cannot have a bowel movement or you cannot pass gas. Your stomach gets bloated or bigger. Your skin or the whites of your eyes look yellow. You faint. You have bloody, frequent or painful urination (peeing). You have new symptoms or anything that worries you. CHILDREN: Return to the Emergency Department right away if your child has any of the above-listed symptoms or the following: Pushes your hand away or screams/cries when his/her belly is touched. You notice your child is very fussy or weak. Your child is very tired and is too tired to eat or drink. Your child is dehydrated. Signs of dehydration can be: Significant change in the amount of wet diapers/urine. Your or child starts to have dry mouth and lips, or no saliva (spit) or tears. WOMEN: Return to the Emergency Department right away if you have any of the above-listed symptoms or the following: You have bleeding, leaking fluid or passing tissue from the vagina. You have worse pain or cramping, or pain in your shoulder or back. You have vomiting that will not stop. You have a temperature of 100oF or more. Your baby is not moving as much as usual. You faint. You get a bad headache with or without eye problems and abdominal pain. You have a seizure. You have unusual discharge from your vagina and abdominal pain. Abdominal pain is pretty common during . Your pain may or may not be related to your . You should follow-up closely with your OB provider so they can evaluate you and your baby. Until you follow-up with your regular provider, do the following: Avoid sex and do not put anything in your vagina. Drink clear fluids. Only take medications approved by your provider. MORE INFORMATION: Appendicitis: A possible cause of abdominal pain in any person who still has their appendix is acute appendicitis. Appendicitis is often hard to diagnose. Testing does not always rule out early appendicitis or other causes of abdominal pain. Close follow-up with your provider and re-evaluations maybe needed to figure out the reason for your abdominal pain. Follow-up: It is very important that you make an appointment with your clinic and go to the appointment. If you do not follow-up with your primary provider, it may result in missing an important development which could result in permanent injury or disability and/or lasting pain. If there is any problem keeping your appointment, call your provider or return to the Emergency Department. Medications: Take your medications as directed by your provider today. Before using [id number] medications, ask your provider and make sure to take the medications as directed. If you have any questions about medications, ask your provider. Diet: Resume your normal diet as much as possible, but do not eat fried, fatty or spicy foods whileyou have pain. Do not drink alcohol or have caffeine. Do not smoke tobacco. Probiotics: If you have been given an antibiotic, you may want to also take a probiotic pill or eatyogurt with live cultures. Probiotics have good bacteria to help your intestines stay healthy. Studies have shown that probiotics help prevent diarrhea (loose stools) and other intestine problems (including C. diff infection) when you take antibiotics. You can buy these without a prescription in the pharmacy section of the store. If you were given a prescription for medicine here today, be sure to read all of the information (including the package insert) that comes with your prescription. This will include important information about the medicine, its side effects, and any warnings that you need to know about. The pharmacist who fills the prescription can provide more information and answer questions you may have about the medicine. If you have questions or concerns that the pharmacist cannot address, please call or return to the Emergency Department. Remember that you can always come back to the Emergency Department if you are not able to see your regular provider in the amount of time listed above, if you get any new symptoms, or if there is anything that worries you. * Attachments The following attachments cannot be sent through Care Everywhere. * Flank Pain (Albanian) documented in this encounter Medications at Time [...] mouth At Bedtime 180 tablet 3 07/27/2021 omeprazole (PRILOSEC) [address] capsule Take 2 capsules (40 mg) by mouth 2 times daily for 14 days 56 capsule 03/03/2024 03/17/2024 oxyCODONE (ROXICODONE) 5 MG tablet Take 1 tablet (5 mg) by mouth every 6 hours as needed for severe pain 12 tablet 03/03/2024 03/06/2024 sucralfate (CARAFATE) 1 GM tablet Take 1 tablet (1 g) by mouth 4 times daily for 14 days 56 tablet 03/03/2024 03/17/2024 levETIRAcetam (KEPPRA) 750 MG tabletIndications:His tory of seizure TAKE 1 TABLET (750 MG) BY MOUTH 2 TIMES DAILY 60 tablet 03/06/2024 04/01/2024 levETIRAcetam (KEPPRA) 750 MG tabletIndications:His tory of seizure Take 1 tablet (750 mg) by mouth 2 times daily 60 tablet 02/14/2024 03/06/2024 rosuvastatin (CRESTOR) 20 MG tabletIndications:Cer ebrovascular accident (CVA), unspecified mechanism (H) Take 1 tablet (20 mg) by mouth at bedtime 30 tablet 02/14/2024 03/06/2024 documented as of this encounter ED Notes * Charline Kramer RN - 03/03/2024 2:18 PM CDT All patient questions answered, no further questions at this time. Discharge paperwork reviewed with patient. Patient verbalized understanding of discharge teaching, medications, when to return, and the importance of follow up. Patient verbalizes feeling safe to return home. * Tran Leonard RN - 03/03/2024 10:20 AM CDT Patient reports flank pain and hematuria since Saturday. Had labs and imaging completed with negative work up. Patient reports pain is not getting better. ABCs intact * Brayan Reich MD - 03/03/2024 9:50 AM CDT Emergency Department Note History of Present Illness Chief Complaint Flank Pain HPI Alcon Zamora is a 48 year old female who presents with R abdominal/epigastric pain x5 days. 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 Pt taking ASA, Keppra. Last Saturday pt noticed burning in the epigastrium and aching R sided abdominal pain. Pt went to clinic on Saturday and had CT abdomen pelvis. Since then pt has been taking tums. She notices worsening pain a few hours after eating but still constant. Nausea but no vomiting or diarrhea. No SOB but having some epigastric pain radiating upwards at times. NO change in BMs aside from greenish stool color. NO dysuria or hematuria. NO vaginal bleeding or abnormal discharge. Independent Historian None Review of External Notes Clinic visit 4 days ago for flank pain and associated evaluation: CT A/P 02/28/24: Narrative & Impression CT ABDOMEN AND PELVIS WITH CONTRAST 02/28/2024 [...] abdominal pain is identified. PETRONA HARRIS MD Past Medical History Medical History and Problem List Acute posthemorrhagic anemia ASD ADHD Broncho-pulmonary dysplasia Cervicalgia COPD DDD Depressive disorder Lizy-Danlos syndrome Excessive menstruation MONAE Hemorrhage complicating a procedure Herniated cervical disc History of stroke with residual effects Seizures Asthma AVF Insomnia PTSD Fibromyalgia Hemorrhoids Pneumonia Rosacea Medications Albuterol Aspirin Breo ellipta Zyrtec Keppra Antivert Metamucil Crestor Senna docusate Desyrel Zofran Flexeril Toradol Ativan Medrol Dosepak Wellbutrin Flonase Surgical History Vag del. 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 RESP: Effort normal. Breath sounds are normal bilaterally. GI: moderate right flank and abdominal tenderness without rebound/guarding, not distended. No skin rashes. NEURO: Alert, moving all extremities MSK: No deformity of the extremities SKIN: Warm and dry Diagnostics Lab Results Labs Ordered and Resulted from Time of ED Arrival to Time of ED Departure ROUTINE UA WITH MICROSCOPIC REFLEX TO CULTURE - Abnormal Result Value Color Urine Straw Appearance Urine Clear Glucose Urine Negative Bilirubin Urine Negative Ketones Urine Negative Specific [place] Urine 1.005 Blood Urine Trace (*) pH Urine 7.5 (*) Protein Albumin Urine Negative Urobilinogen Urine Normal Nitrite Urine Negative Leukocyte Esterase Urine Negative Bacteria Urine Few (*) Mucus Urine Present (*) RBC Urine 1 WBC Urine 2 Squamous Epithelials Urine 10 (*) Hyaline Casts Urine 1 COMPREHENSIVE METABOLIC PANEL - Normal Sodium 140 Potassium 5.0 Carbon Dioxide (CO2) 27 Anion Gap 10 Urea Nitrogen 11.4 Creatinine 0.81 GFR Estimate 90 Calcium 9.8 Chloride 103 Glucose 96 Alkaline Phosphatase 86 AST 19 ALT 13 Protein Total 7.9 Albumin 4.4 Bilirubin Total 1.0 TROPONIN T, HIGH SENSITIVITY - Normal Troponin T, High Sensitivity <6 HCG QUALITATIVE URINE - Normal hCG Urine Qualitative Negative CBC WITH PLATELETS AND DIFFERENTIAL WBC Count 7.6 RBC Count 4.84 Hemoglobin 14.9 Hematocrit 44.0 MCV 91 MCH 30.8 MCHC 33.9 RDW 12.2 Platelet Count 168 % Neutrophils 62 % Lymphocytes 25 % Monocytes 6 % Eosinophils 6 % Basophils 1 % Immature Granulocytes 0 NRBCs per 100 WBC 0 Absolute Neutrophils 4.8 Absolute Lymphocytes 1.9 Absolute Monocytes 0.5 Absolute Eosinophils 0.5 Absolute Basophils 0.0 Absolute Immature Granulocytes 0.0 Absolute NRBCs 0.[address] Abdomen Pelvis w Contrast Final Result IMPRESSION: No acute abnormality in the abdomen or pelvis. No cause for abdominal pain is identified. PETRONA HARRIS MD SYSTEM ID: [id number] EKG ECG was taken 03/03/24 at 11:41:13 Vent rate: 64 bpm VT interval: 160 ms QRS duration: 92 ms QT/Qtc-Baz: 402/414 ms P-R-T axes: 53 69 28 Normal sinus rhythm Possible left atrial enlargement Borderline ECG When compared to 02/13/24: No significant changes noted. ED Course Medications Administered Medications alum & mag hydroxide-simethicone (MAALOX) suspension 15 mL (15 mLs Oral $Given 03/03/24 1158) famotidine (PEPCID) tablet 20 mg (20 mg Oral $Given 03/03/24 1154) CT SCAN FLUSH (64 mLs Intravenous $Given 03/03/24 1225) iopamidol (ISOVUE-370) solution 500 mL (100 mLs Intravenous $Given 03/03/24 1218) Procedures Procedures Discussion of Management None Social Determinants of Health adding to complexity of care None ED Course Medical Decision Making / Diagnosis [facility] Diagnoses: None MIPS None MDM Alcon Zamora is a 48 year old female who presents to the ER for worsening right flank and abdominal pain over the past 5 days. Vital signs reassuring. She does have moderate tenderness of the right flank and abdominal region without peritoneal signs. I reviewed recent CT scan from 4 days ago that was negative, but due to progressive significant pain, this was repeated. Fortunately, no interval change was identified. No clear chest pain or shortness of breath to suggest sinister intrathoracic or cardiac pathology. Her labs are reassuring without LFT abnormality or evidence of pancreatitis or or concerning leukocytosis. Cardiac enzymes are negative and EKG is reassuring. Considered occult gastritis or duodenitis or peptic ulcer disease or occult neuropathic process. Plan for course of PPI, Carafate, a few pills of oxycodone for breakthrough pain and follow-up with gastroenterology and primary care. Return precautions discussed prior to discharge. Disposition The patient was discharged. ICD-10 Codes: ICD-10-CM 1. Right flank pain R10.9 2. Right sided abdominal pain R10.9 Discharge Medications Discharge Medication List as of 03/03/2024 2:11 PM START taking these medications Details omeprazole (PRILOSEC) [address] capsule Take 2 capsules (40 mg) by mouth 2 times daily for 14 days, Disp-56 capsule, R-0, E-Prescribe oxyCODONE (ROXICODONE) 5 MG tablet Take 1 tablet (5 mg) by mouth every 6 hours as needed for severepain, Disp-12 tablet, R-0, E-Prescribe sucralfate (CARAFATE) 1 GM tablet Take 1 tablet (1 g) by mouth 4 times daily for 14 days, Disp-56 tablet, R-0, E-Prescribe Scribe Disclosure: I, Ramy Vela, am serving as a scribe at 12:24 PM on 03/03/2024 to document services personallyperformed by Brayan Reich MD based on my observations and the provider's statements to me. Brayan Reich MD 03/03/24 2857 Brayan Reich MD 03/03/24 0310 documented in this encounter Plan of Treatment Upcoming Encounters Date Type Department Care Team (Late st Contact Info) Description 06/08/2024 8:30 AM CDT [facility] [address] [place] [address] Chintan Denise Ra, MARINE CONSULTANT PROCESS COORDINATOR [address] [place], [place] [id number] Pending Results Name Type Priority Associated Diagnoses Date /Time EKG 12-lead, tracing only EKG STAT 03/03/2024 11:41 AM CDT documented as of this encounter Goals Goal [...] Mental Health weekly - PT, OT and APPLE CHECKER - PCP appointment 03/17/24 - Neurology 05/05/24, [...] 24/ after hours services available. High School Math Tutor will remain available as needed. documented as of this encounter Procedures Procedure Name Priority Date/Time Associated Diagnosis Comments CT ABDOMEN PELVIS W CONTRAST STAT 03/03/2024 12:29 PM CDT CBC WITH PLATELETS AND DIFFERENTIAL STAT 03/03/2024 11:49 AM CDT TROPONIN T, HIGH SENSITIVITY STAT 03/03/2024 11:49 AM CDT CBC WITH PLATELETS & DIFFERENTIAL STAT 03/03/2024 11:49 AM CDT COMPREHENSIVE METABOLIC PANEL STAT 03/03/2024 11:49 AM CDT EKG 12-LEAD, TRACING ONLY STAT 03/03/2024 11:41 AM CDT HCG QUALITATIVE URINE STAT 03/03/2024 10:27 AM CDT ROUTINE UA WITH MICROSCOPIC REFLEX TO CULTURE STAT 03/03/2024 10:27 AM CDT documented in this encounter Results * CT Abdomen Pelvis w Contrast (03/03/2024 12:29 PM CDT) Anatomical Region Laterality Modality Abdomen/Pelvis, SUBRAD CT ALEJANDRA DY, UMP CT ABDOMEN PELVIS, RAD CT Computed Tomography Impressions 03/03/2024 2:18 PM CDT IMPRESSION: No acute abnormality in the abdomen or pelvis. No cause for abdominal pain is identified. PETRONA HARRIS MD SYSTEM ID: [id number] Narrative 03/03/2024 2:[address] ABDOMEN [...] is identified. PETRONA HARRIS MD SYSTEM ID: [id number] Brayan Reich MD [facility] CT ORDERABLES * CBC with platelets and differential (03/03/2024 11:49 AM CDT) Pathologist [facility] WBC Count 7.6 4.0 - 11.0 10e3/uL [...] - BLOOD ORDERABL ES Performing Organization Address [facility]/ZIP Co de Phone Number [facility] [address] Lab (1st floor, no room number) [place] [address] * Troponin T, High Sensitivity (03/03/2024 11:49 AM CDT) Troponin T, High Sensitivity <6 <=14 [...] - BLOOD ORDERABL ES Performing Organization Address [facility]/ZIP Co de Phone Number [facility] [address] Lab (1st floor, no room number) [place] [address] * Comprehensive metabolic panel (03/03/2024 11:49 AM CDT) Sodium 140 135 - 145 mmol/L 03/03/2024 [...] 1.0 <=1.2 mg/dL 03/03/2024 1:14 PM CDT LABORATORY Blood BLOOD SPECIMEN / Unknown Venipuncture / Unknown 03/03/2024 11:49 AM CDT 03/03/2024 11:53 AM CDT Brayan Reich MD LAB - BLOOD ORDERABL ES LABORATORY [facility] [address] Lab (1st floor, no room number) [place] [address] * HCG qualitative urine (03/03/2024 10:27 AM CDT) hCG Urine Qualitative Negative Negative PRATEEK 03/03/2024 12:05 PM CDT LABORATORY Comment:This test is for scr eening purposes. Results should be interpreted along with the clinical picture. Confirmation testing is available if warranted by ordering [id number], HCG Quantitative . Urine URINE SPECIMEN OBTAINED BY CLEAN CATCH PROCEDURE / Unknown Non-blood Collection / Unknown 03/03/2024 10:27 AM CDT 03/03/2024 10:33 AM CDT Brayan Reich MD LAB - URINE ORDERABL ES Performing Organization Address [facility]/ZIP Co de Phone Number [facility] [address] Lab (1st floor, no room number) [place] [address] * (ABNORMAL) UA with Microscopic reflex to Culture (03/03/2024 10:27 AM CDT) Color Urine Straw Colorless, Straw, Light Yellow, Yellow 03/03/2024 10:40 AM CDT LABORATORY Appearance Urine Clear Clear 03/03/20 24 10:40 AM CDT LABORATORY Glucose Urine Negative Negative mg/dL 03/03/2024 10:40 AM CDT LABORATORY Bilirubin Urine Negative Negative 10:40 AM CDT LABORATORY Ketones Urine Negative Negative mg/dL 03/03/2024 10:40 AM CDT LABORATORY Specific [place] Urine 1.005 1.003 - 1.035 03/03/2024 10:40 AM CDT [facility] LABORATORY Blood Urine Trace(A) Negative 03/03/2024 10:40 [...] None Seen /LPF 03/03/2024 10:40 AM CDT [facility] LABORATORY RBC Urine 1 <=2 /HPF 03/03/2024 10:40 AM CDT [facility] LABORATORY WBC Urine 2 <=5 /HPF 03/03/2024 [...] MD LAB - URINE ORDERABL ES LABORATORY [facility] [address] Lab (1st floor, no room number) [place] [address], [facility] documented in this encounter Visit Diagnoses Diagnosis Right flank pain Abdominal pain, unspecified site Right sided abdominal pain Abdominal pain, unspecified site documented in this encounter Administered Medications Inactive Administered Medications - up to 3 most recent administrations Medication Order MAR Action Action Date Dose Rate Site alum & mag hydroxide-simethicone (MAALOX) suspension 15 mL 15 mL, Oral, ONCE, On Sat03/03/24 at 1140, For 1 dose, Use for 'GI cocktail'. $Given 03/03/2024 11:54 AM CDT [address] SCAN FLUSH Intravenous, 100 mL, ONCE, On Sat03/03/24 at 1220, For 1 dose, This entry is for use by Radiology to intermittently used as a flush in patients receiving a CT scan. $Given 03/03/2024 12:25 PM CDT 64 mLs famotidine (PEPCID) tablet 20 mg 20 mg, Oral, ONCE, On Sat03/03/24 at 1140, For 1 dose $Given 03/03/2024 11:54 AM CDT 20 mg iopamidol (ISOVUE-370) solution 500 mL 500 mL, Intravenous, ONCE, On Sat03/03/24 at 1220, For 1 dose $Given 03/03/2024 12:18 PM CDT 100 mLs documented in this encounter Active and Recently Administered Medications Times are shown in CDT. Scheduled Medication Order 03/01/2024 03/02/2024 03/03/2024 alum & mag hydroxide-simethicone (MAALOX) suspension 15 mL (COMPLETED) 15 mL, Oral, ONCE, On Sat03/03/24 at 1140, For 1 dose, Use for 'GI cocktail'. 1154 ($Given - Provi andreia: Елена Jose RN) CT SCAN FLUSH (COMPLETED) Intravenous, 100 mL, ONCE, On Sat03/03/24 at 1220, For 1 dose, This entry is for use by Radiology to intermittently used as a flush in patients receiving a CT scan. 1225 ($Given - Provi andreia: Sadiiq David) famotidine (PEPCID) tablet 20 mg (COMPLETED) 20 mg, Oral, ONCE, On Sat03/03/24 at 1140, For 1 dose 1154 ($Given - Provi andreia: Елена Jose RN) iopamidol (ISOVUE-370) solution 500 mL (COMPLETED) 500 mL, Intravenous, ONCE, On Sat03/03/24 at 1220, For 1 dose 1218 ($Given - Provi andreia: Sadiiq David) documented in this encounter Additional Health Concerns Active Problems Noted Date Diagnosed Date Increased risk of re-admission 02/18/2024 Assessment Noted Time PHQ-9 Depression Total Score: 16 024 3:27 PM CDT documented as of this encounter Care Teams Machine Tender Relationship Specialty Start Date End Date Winston Villatoro OD [facility] [place] [address] [place] [address] PCP - Ophthalmology Ophthalmology 02/11/13 Denise Woodson Ra, MARINE CONSULTANT PROCESS COORDINATOR [address] [place] [address] PCP - General Family Practice 09/21/20 Denise Woodson Ra, MARINE CONSULTANT PROCESS COORDINATOR [address] [place] [address] Assigned PCP 07/17/20 Usha Simon APRN PROCESS COORDINATOR [address] [id number] Nurse Practitioner Neurological Surgery 01/24/24 Dangelo Salinas MD [address] [place] [address] Neurology 01/27/24 Usha Simon APRN PROCESS COORDINATOR [address] [address] Assigned Neuroscience Provider 02/06/24 03/07/24 Anastasia Stearns, RN Lead High School Math Tutor 02/06/24 Germaine Lopez, CHW Community Health Worker Primary Care - CC 02/18/24 documented as of this encounter
--- OUTSIDE RECORDS SUMMARY | 2024-05-07 18:46 | XMS_ITS | Encounter Summary ---
Author Organization [place] Address [address] [place] [address] Care Team Providers Care Falafel Cart Cook Name Role Phone Winston Villatoro OD Unavailable [phone] Denise Woodson Ra, APRN EYEGLASS LENS CUTTER Unavailable [phone] Denise Woodson Ra, APRN EYEGLASS LENS CUTTER Primary Care Provid er Usha Simon APRN EYEGLASS LENS CUTTER Unavailable [phone] Dangelo Salinas MD Unavailable Anastasia Stearns RN Unavailable [phone] Germaine Lopez CHW Unavailable [phone] Robin Zepeda MD Unavailable [phone] Reason for Visit * Rehab Therapy Integrated Services (Routine) - Authorized Specialty Diagnoses / Procedures Referred By Nila shah Referred To Contact Diagnoses Cerebrovascular accident (CVA), unspecified mechanism (H) [address] [address] Referral ID Status Reason Start Date Expiration Date V isits Requested Visits Authorized [id number] Authorized 09/16/2023 09/15/2024 365 365 Encounter Details Date Type Department Care Team (Late st Contact Info) Description 03/11/2024 4:15 PM CDT Therapy Visit [address] [id number] Danya You, AMAIRANI [address] [place] [address] [address] [place] [address] Delicia George, PT [address] [place] [address] Cerebrovascular accident (CVA), unspecified mechanism [...] How often do you attend mu-ism or methodist serv ices? Never 02/28/2024 Do you belong [...] Answer Date Recorded PHQ-2 Score 4 02/12/2024 [facility] of Occupat ional Health - Occupational Stress [...] * Patient Instructions* Delicia George, PT - 03/11/2024 4:15 PM CDT Physical therapy notes 03/11/24: Standing with your back in the corner or toward a wall - not touching. Stand on a folded blanket ortowel. Reach down toward your feet, then stand up and look up toward the ceiling. Repeat for 30 seconds. Move quickly to make this more challenging. Standing with your back in the corner or toward a wall - not touching. Stand on a folded towel or blanket to make it squishy. Twist to tap one wall then the other with your opposite hand. Tap the wall on either side of the corner at eye level then tap the wall at knee level, alternating sides. Repeat for 30 seconds. Walk and turn your head and eyes side to side every 2 steps for 30 seconds. Repeat turning your head and eyes up and down every 2 steps for 30 seconds. As able, progress to walking backwards instead of forward. Keep head and eyes moving every 2 steps. Find a ???busy?? piece of wrapping paper. Leave it somewhere you go often (like the kitchen or bathroom) and stop to look at it for 30 seconds at a time. Repeat every time you pass it. documented in this encounter Plan of Treatment Upcoming Encounters Date Type Department Care Team (Late st Contact Info) Description 06/08/2024 8:30 AM CDT Office Visit [facility] [address] [place] [address] Denise Woodson Ra, ERADICATOR [facility] [address] [place], [place] [id number] documented as of this encounter Goals Goal [...] Mental Health weekly - PT, OT and STEELWORKER - PCP appointment 03/17/24 - Neurology 05/05/24, [...] clinic with 24/ after hours services available. Acquisition Editor will remain available as needed. documented as of this encounter Visit Diagnoses Diagnosis Cerebrovascular accident (CVA), unspecified mechanism (H)- Primary documented in this encounter Additional Health Concerns Active Problems Noted Date Diagnosed Date Increased risk of re-admission 02/18/2024 Assessment Noted Time PHQ-9 Depression Total Score: 16 024 3:27 PM CDT documented as of this encounter Care Teams Falafel Cart Cook Relationship Specialty Start Date End Date Winston Villatoro OD [facility] [address] [facility] [address] [place] [address] PCP - Ophthalmology Ophthalmology 02/11/13 Denise Woodson Ra, APRN EYEGLASS LENS CUTTER [address] [place] [address] PCP - General Family Practice 09/21/20 Denise Woodson Ra, APRN EYEGLASS LENS CUTTER [address] [place] [address] Assigned PCP 07/17/20 Usha Simon APRN EYEGLASS LENS CUTTER [address] [facility], [place] [address] Nurse Practitioner Neurological Surgery 01/24/24 Dangelo Salinas MD [address] [place] [address] Neurology 01/27/24 Anastasia Stearns, RN Lead Acquisition Editor 02/06/24 Germaine Lopez, W Community Health Worker Primary Care - CC 02/18/24 Robin Zepeda MD [address] [facility], [place] [address] Assigned Neuroscience Provider 03/08/24 documented as of this encounter
--- OUTSIDE RECORDS SUMMARY | 2024-05-07 18:46 | XMS_ITS | Encounter Summary ---
Author Organization [place] Address [address] [place] [address] Care Team Providers Care Threader Operator Name Role Phone Winston Villatoro OD Unavailable [phone] Denise Woodson Ra, APRN COAT REPAIR INSPECTOR Unavailable [phone] Denise Woodson Ra, APRN COAT REPAIR INSPECTOR Primary Care Provid er Usha Simon APRN COAT REPAIR INSPECTOR Unavailable [phone] Dangelo Salinas MD Unavailable Usha Simon APRN COAT REPAIR INSPECTOR Unavailable [phone] Anastasia Stearns RN Unavailable [phone] Germaine Lopez CHW Unavailable [phone] Encounter Details Date Type Department Care Team (Latest Contact Info) Description 03/05/2024 Travel Social History Tobacco Use Types Packs/Day [...] Never 02/28/2024 How often do you attend sabianist or hoahaoism serv ices? Never 02/28/2024 Do you belong to any clubs o r organizations such as sabianist groups, unions, fraternal or athletic groups, or [...] Answer Date Recorded PHQ-2 Score 4 02/12/2024 [facility] of Occupat ional Health - [...] Description 06/08/2024 8:30 AM CDT Office Visit [facility] [address] [place] [address] Denise Woodson Ra, COMPUTER SYSTEMS AUDITOR COAT REPAIR INSPECTOR [address] [place], [place] [id number] documented as of this encounter Goals Goal [...] Mental Health weekly - PT, OT and HARBOR PAT[employer] POLICE - PCP appointment 03/17/24 - Neurology 05/05/24, [...] clinic with 24/7 after hours services available. Materials Specialist will remain available as needed. documented as of this encounter Visit Diagnoses Not on filedocumented in this encounter Additional Health Concerns Active Problems Noted Date Diagnosed Date Increased risk of re-admission 02/18/2024 Assessment Noted Time PHQ-9 Depression Total Score: 16 024 3:27 PM CDT documented as of this encounter Care Teams Threader Operator Relationship Specialty Start Date End Date Winston Villatoro OD [facility] [address] [facility] [address] [place] [address] PCP - Ophthalmology Ophthalmology 02/11/13 Denise Woodson Ra, APRN COAT REPAIR INSPECTOR [address] [place] [address] PCP - General Family Practice 09/21/20 Denise Woodson Ra, APRN COAT REPAIR INSPECTOR [address] [place] [address] Assigned PCP 07/17/20 Usha Simon APRN COAT REPAIR INSPECTOR [address] [place] [id number] Nurse Practitioner Neurological Surgery 01/24/24 Dangelo Salinas MD [address] [facility] [address] [address] Neurology 01/27/24 Usha Simon APRN COAT REPAIR INSPECTOR [address] [place] [address] Assigned Neuroscience Provider 02/06/24 03/07/24 Anastasia Stearns, RN Lead Materials Specialist 02/06/24 Germaine Lopez, W Community Health Worker Primary Care - CC 02/18/24 documented as of this encounter
--- OUTSIDE RECORDS SUMMARY | 2024-05-07 18:46 | XMS_ITS | Encounter Summary ---
Author Organization [place] Address [address] [place] [address] Care Team Providers Care It Network Engineer Name Role Phone Winston Villatoro OD Unavailable [phone] Denise Woodson Ra, APRN COOLER CONVEYOR LOADER Unavailable [phone] Denise Woodson Ra, APRN COOLER CONVEYOR LOADER Primary Care Provid er Usha Simon APRN COOLER CONVEYOR LOADER Unavailable [phone] Dangelo Salinas MD Unavailable Usha Simon APRN COOLER CONVEYOR LOADER Unavailable [phone] Anastasia Stearns RN Unavailable [phone] Germaine Lopez CHW Unavailable [phone] Encounter Details Date Type Department Care Team (Latest Contact Info) Description 03/04/2024 Travel Social History Tobacco Use Types Packs/Day [...] Never 02/28/2024 How often do you attend amish or oriental orthodox serv ices? Never 02/28/2024 Do you belong to any clubs o r organizations such as amish groups, unions, fraternal or athletic groups, or [...] Answer Date Recorded PHQ-2 Score 4 02/12/2024 [facility] of Occupat ional Health - [...] AM CDT Office Visit [facility] [address] [place] [address] Denise Woodson Ra, FREIGHT BRAKE OPERATOR COOLER CONVEYOR LOADER [address] [place], [place] [id number] documented as of this encounter Goals Goal [...] Mental Health weekly - PT, OT and COAL DUMPING EQUIPMENT OPERATOR - PCP appointment 03/17/24 - Neurology [...] clinic with 24/7 after hours services available. Commutator V Ring Assembler will remain available as needed. documented as of this encounter Visit Diagnoses Not on filedocumented in this encounter Additional Health Concerns Active Problems Noted Date Diagnosed Date Increased risk of re-admission 02/18/2024 Assessment Noted Time PHQ-9 Depression Total Score: 16 024 3:27 PM CDT documented as of this encounter Care Teams It Network Engineer Relationship Specialty Start Date End Date Winston Villatoro OD [facility] [address] [facility] [address] [place] [address] PCP - Ophthalmology Ophthalmology 02/11/13 Denise Woodson Ra, APRN COOLER CONVEYOR LOADER [address] [place] [address] PCP - General Family Practice 09/21/20 Denise Woodson Ra, APRN COOLER CONVEYOR LOADER [address] [place] [address] Assigned PCP 07/17/20 Usha Simon APRN COOLER CONVEYOR LOADER [address] [place] [address] Nurse Practitioner Neurological Surgery 01/24/24 Dangelo Salinas MD [address] [facility] [address] [address] Neurology 01/27/24 Usha Simon APRN COOLER CONVEYOR LOADER [address] [place] [address] Assigned Neuroscience Provider 02/06/24 03/07/24 Anastasia Stearns, RN Lead Commutator V Ring Assembler 02/06/24 Germaine Lopez, W Community Health Worker Primary Care - CC 02/18/24 documented as of this encounter
--- OUTSIDE RECORDS SUMMARY | 2024-05-07 18:46 | XMS_ITS | Encounter Summary ---
Author Organization [place] Address [address] [place] [address]. [place] [address] Care Team Providers Care Commercial Light Fixture Assembler Name Role Phone Winston Villatoro OD Unavailable [phone] Denise Woodson Ra, APRN ROCK [place]ON APPRENTICE Unavailable + [phone] Denise Woodson Ra FOOD STAND MANAGER [place] APPRENTICE Primary Care Provid er Usha Simon APRN ROCK [place]ON APPRENTICE Unavailable + [phone] Dangelo Salinas MD Unavailable Usha Simon APRN ROCK [place]ON APPRENTICE Unavailable + [phone] Anastasia Stearns RN Unavailable [phone] Germaine Lopez CHW Unavailable [phone] Reason for Visit * Reason Comments Medication Refill Encounter Details Date Type Department Care Team (Late st Contact Info) Description 03/03/2024 Refill [facility] [address] [place] [address] Denise Woodson Ra, APRN ROCK [place]ON APPRENTICE [address] [place] [address] Medication Refill Social History Tobacco [...] How often do you attend baptist or evangelical serv ices? Never 02/28/2024 Do [...] Answer Date Recorded PHQ-2 Score 4 02/12/2024 [facility] of Occupat ional [facility] - Occupational Stress Questionnaire Answer Date [...] Description 06/08/2024 8:30 AM CDT Office Visit [facility] [address] [place] [address] Denise Woodson Ra, FOOD STAND MANAGER [facility] [address] [place] [address] documented as of this encounter Goals Goal [...] Mental Health weekly - PT, OT and MARITIME PILOT - PCP appointment 03/17/24 - Neurology 05/05/24, [...] clinic with 08/04 after hours services available. Weld Lay Out Worker will remain available as needed. documented as of this encounter Visit Diagnoses Diagnosis History of seizure Cerebrovascular accident (CVA), unspecified mechanism (H) documented in this encounter Additional Health Concerns Active Problems Noted Date Diagnosed Date Increased risk of re-admission 02/18/2024 Assessment Noted Time PHQ-9 Depression Total Score: 16 024 3:27 PM CDT documented as of this encounter Care Teams Commercial Light Fixture Assembler Relationship Specialty Start Date End Date Winston Villatoro OD [facility] [address] [facility] [address] [place] [address] PCP - Ophthalmology Ophthalmology 02/11/13 Denise Woodson Ra, APRN ROCK MASON APPRENTICE [address] [place] [address] PCP - General Family Practice 09/21/20 Denise Woodson Ra, APRN ROCK [place]ON APPRENTICE [address] [address] [facility] [place] [address] Assigned PCP 07/17/20 Usha Simon APRN ROCK [place]ON APPRENTICE [address] [facility] [address] [place] [address] Nurse Practitioner Neurological Surgery 01/24/24 Dangelo Salinas MD [address] [place] [address] Neurology 01/27/24 Usha Simon APRN ROCK [place]ON APPRENTICE [address] [facility] [address] Assigned Neuroscience Provider 02/06/24 03/07/24 Anastasia Stearns, RN Lead Weld Lay Out Worker 02/06/24 Germaine Lopez, CHW Community Health Worker Primary Care - CC 02/18/24 documented as of this encounter
--- OUTSIDE RECORDS SUMMARY | 2024-05-07 18:46 | XMS_ITS | Encounter Summary ---
Author Organization [facility] Address [address] [place] [address] Care Team Providers Care Retail Loss Prevention Specialist Name Role Phone Winston Villatoro OD Unavailable Denise Woodson Ra, APRN SENIOR QA AUTOMATION ENGINEER Unavailable + [phone] Denise Woodson Ra, APRN SENIOR QA AUTOMATION ENGINEER Primary Care Provid er Usha Simon APRN SENIOR QA AUTOMATION ENGINEER Unavailable [phone] Dangelo Salinas MD Unavailable Usha Simon APRN SENIOR QA AUTOMATION ENGINEER Unavailable [phone] Anastasia Stearns RN Unavailable [phone] Germaine Lopez CHW Unavailable Reason for Referral * Diagnostic Imaging CT Scan (Routine) - Closed Specialty Diagnoses / Procedures Referred By Nila shah Referred To Contact Radiology. Diagnoses Flank pain Abdominal pain, epigastric Procedures CT Abdomen Pelvis w Contrast Janna Jo APRN CNP [address] [place] [address] Referral ID Status Reason Start Date Expiration Date Visits Re quested Visits Authorized [id number] Closed 02/28/2024 02/27/2025 1 1 Reason for Visit * Reason Comments Abdominal Pain Epigastric pain X 3 days * Consultation (Routine: Next available opening) - Pending Review Specialty Diagnoses / Procedures Referred By Nila t Referred To Contact Diagnoses Flank pain Abdominal pain, epigastric Liliane Mcnair PA-C [address] [facility] [facility] [place] [address] Ri Acute & Diag [facility] [address] [employer] [place] [address] Referral ID Status Reason Start Date Expiration Date V isits Requested Visits Authorized [id number] Pending Review 02/27/2024 02/26/2025 1 1 Encounter Details Date Type Department Care Team (Late st Contact Info) Description 02/28/2024 10:00 AM CDT Office Visit [facility] [address] [facility] [address] [place] [address] Janna Jo, ARTS AND HUMANITIES COUNCIL DIRECTOR [facility] [address] [place] [address] Flank pain; Abdominal pain, epigastric; TSH elevation Social History Tobacco Use Types [...] How often do you attend amish or pentecostal serv ices? Never 02/28/2024 Do you belong [...] Answer Date Recorded PHQ-2 Score 4 02/12/2024 [facility] - Occupational Stress Questionnaire Answer [...] Sign Reading Time Taken Comments Blood Pressure 116/64 02/28/2024 9:58 AM CDT Pulse 76 02/28/2024 9:58 AM CDT Temperature 36.4 ??C (97.5 ??F) 02/28/2024 9:58 AM CD T Respiratory Rate 18 02/28/2024 9:58 AM CDT Oxygen Saturation 97% 02/28/2024 9:58 AM CDT Inhaled Oxygen Concentration - - Weight 96.2 kg (212 lb) 02/28/2024 9:58 AM CDT Height - - Body Mass Index 31.77 02/27/2024 2:38 PM CDT documented in this encounter Patient Instructions * Patient Instructions* Janna Jo APRN SENIOR QA AUTOMATION ENGINEER - 02/28/2024 10:00 AM CDT Results for orders placed or performed during the hospital encounter of 02/28/24 CT Abdomen Pelvis w Contrast Status: None Narrative CT ABDOMEN AND PELVIS WITH CONTRAST 02/28/2024 [...] Unchanged hemangioma in the T11 vertebral body. Impression IMPRESSION: No acute abnormality in the abdomen or pelvis. No cause for abdominal pain is identified. PETRONA HARRIS MD Results for orders placed or performed in visit on 02/28/24 Comprehensive metabolic panel Status: Abnormal Result Value Ref Range Sodium 139 135 - 145 mmol/L Potassium 4.5 3.4 - 5.3 mmol/L Carbon Dioxide (CO2) 28 22 - 29 mmol/L Anion Gap 11 7 - 15 mmol/L Urea Nitrogen 15.0 6.0 - 20.0 mg/dL Creatinine 0.87 0.51 - 0.95 mg/dL GFR Estimate 82 >60 mL/min/1.73m2 Calcium 9.8 8.6 - 10.0 mg/dL Chloride 100 98 - 107 mmol/L Glucose 87 70 - 99 mg/dL Alkaline Phosphatase 92 40 - 150 U/L AST 21 0 - 45 U/L ALT 16 0 - 50 U/L Protein Total 7.9 6.4 - 8.3 g/dL Albumin 4.7 3.5 - 5.2 g/dL Bilirubin Total 1.4 (H) <=1.2 mg/dL CRP inflammation Status: Abnormal Result Value Ref Range CRP Inflammation 6.29 (H) <5.00 mg/L Erythrocyte sedimentation rate auto Status: Normal Result Value Ref Range Erythrocyte Sedimentation Rate 20 0 - 20 mm/hr CBC with platelets and differential Status: None Result Value Ref Range WBC Count 8.6 4.0 - 11.0 10e3/uL RBC Count 4.98 3.80 - 5.20 10e6/uL Hemoglobin 15.1 11.7 - 15.7 g/dL Hematocrit 46.0 35.0 - 47.0 % MCV 92 78 - 100 fL MCH 30.3 26.5 - 33.0 pg MCHC 32.8 31.5 - 36.5 g/dL RDW 12.2 10.0 - 15.0 % Platelet Count 191 150 - 450 10e3/uL % Neutrophils 62 % % Lymphocytes 26 % % Monocytes 6 % % Eosinophils 5 % % Basophils 1 % % Immature Granulocytes 0 % NRBCs per 100 WBC 0 <1 /100 Absolute Neutrophils 5.4 1.6 - 8.3 10e3/uL Absolute Lymphocytes 2.2 0.8 - 5.3 10e3/uL Absolute Monocytes 0.5 0.0 - 1.3 10e3/uL Absolute Eosinophils 0.5 0.0 - 0.7 10e3/uL Absolute Basophils 0.0 0.0 - 0.2 10e3/uL Absolute Immature Granulocytes 0.0 <=0.4 10e3/uL Absolute NRBCs 0.0 10e3/uL CBC with platelets differential Status: None Narrative The following orders were created for panel order CBC with platelets differential. Procedure Abnormality Status --------- ------ CBC with platelets and d...[[id number]] Final result Please view results for these tests on the individual orders. The CT and labs are normal. Call neurology to see if you can reduce the aspirin dose. If this pain persists or worsens your next step is to follow up with GI. documented in this encounter Progress Notes * Janna Jo APRN CNP - 02/28/2024 10:00 AM CDT Acute and Diagnostic Services Clinic Visit Assessment & Plan Flank pain - Referral to Acute and Diagnostic Services (Day of diagnostic / First order acute) - sodium chloride (PF) 0.9% PF flush 3 mL - CT Abdomen Pelvis w Contrast; Future - CBC with platelets differential; Future - Comprehensive metabolic panel; Future - CRP inflammation; Future - Erythrocyte sedimentation rate auto; Future - CBC with platelets differential - Comprehensive metabolic panel - CRP inflammation - Erythrocyte sedimentation rate auto - TSH with free T4 reflex; Future - TSH with free T4 reflex Abdominal pain, epigastric - Referral to Acute and Diagnostic Services (Day of diagnostic / First order acute) - sodium chloride (PF) 0.9% PF flush 3 mL - CT Abdomen Pelvis w Contrast; Future - CBC with platelets differential; Future - Comprehensive metabolic panel; Future - CRP inflammation; Future - Erythrocyte sedimentation rate auto; Future - CBC with platelets differential - Comprehensive metabolic panel - CRP inflammation - Erythrocyte sedimentation rate auto TSH elevation Patient Instructions Results for orders placed or performed during the hospital encounter of 02/28/24 CT Abdomen Pelvis w Contrast Status: None Narrative CT ABDOMEN AND PELVIS WITH CONTRAST 02/28/2024 [...] Unchanged hemangioma in the T11 vertebral body. Impression IMPRESSION: No acute abnormality in the abdomen or pelvis. No cause for abdominal pain is identified. PETRONA HARRIS MD Results for orders placed or performed in visit on 02/28/24 Comprehensive metabolic panel Status: Abnormal Result Value Ref Range Sodium 139 135 - 145 mmol/L Potassium 4.5 3.4 - 5.3 mmol/L Carbon Dioxide (CO2) 28 22 - 29 mmol/L Anion Gap 11 7 - 15 mmol/L Urea Nitrogen 15.0 6.0 - 20.0 mg/dL Creatinine 0.87 0.51 - 0.95 mg/dL GFR Estimate 82 >60 mL/min/1.73m2 Calcium 9.8 8.6 - 10.0 mg/dL Chloride 100 98 - 107 mmol/L Glucose 87 70 - 99 mg/dL Alkaline Phosphatase 92 40 - 150 U/L AST 21 0 - 45 U/L ALT 16 0 - 50 U/L Protein Total 7.9 6.4 - 8.3 g/dL Albumin 4.7 3.5 - 5.2 g/dL Bilirubin Total 1.4 (H) <=1.2 mg/dL CRP inflammation Status: Abnormal Result Value Ref Range CRP Inflammation 6.29 (H) <5.00 mg/L Erythrocyte sedimentation rate auto Status: Normal Result Value Ref Range Erythrocyte Sedimentation Rate 20 0 - 20 mm/hr CBC with platelets and differential Status: None Result Value Ref Range WBC Count 8.6 4.0 - 11.0 10e3/uL RBC Count 4.98 3.80 - 5.20 10e6/uL Hemoglobin 15.1 11.7 - 15.7 g/dL Hematocrit 46.0 35.0 - 47.0 % MCV 92 78 - 100 fL MCH 30.3 26.5 - 33.0 pg MCHC 32.8 31.5 - 36.5 g/dL RDW 12.2 10.0 - 15.0 % Platelet Count 191 150 - 450 10e3/uL % Neutrophils 62 % % Lymphocytes 26 % % Monocytes 6 % % Eosinophils 5 % % Basophils 1 % % Immature Granulocytes 0 % NRBCs per 100 WBC 0 <1 /100 Absolute Neutrophils 5.4 1.6 - 8.3 10e3/uL Absolute Lymphocytes 2.2 0.8 - 5.3 10e3/uL Absolute Monocytes 0.5 0.0 - 1.3 10e3/uL Absolute Eosinophils 0.5 0.0 - 0.7 10e3/uL Absolute Basophils 0.0 0.0 - 0.2 10e3/uL Absolute Immature Granulocytes 0.0 <=0.4 10e3/uL Absolute NRBCs 0.0 10e3/uL CBC with platelets differential Status: None Narrative The following orders were created for panel order CBC with platelets differential. Procedure Abnormality Status --------- ------ CBC with platelets and d...[[id number]] Final result Please view results for these tests on the individual orders. The CT and labs are normal. Call neurology to see if you can reduce the aspirin dose. If this pain persists or worsens your next step is to follow up with GI. 60 minutes were spent doing chart review, history and exam, documentation and further activities per the note. BMI Estimated body mass index is 31.77 kg/m?? as calculated from the following: Height as of 02/27/24: 1.74 m (5' 8.5). Weight as of this encounter: 96.2 kg (212 lb). Return in about 1 week (around 03/06/2024) for with regular provider if symptoms persist. Juan M Rondon is a 48 year old, presenting for the following health issues: Abdominal Pain (Epigastric pain X 3 days) HPI Abdominal/Flank Pain Onset/Duration: X 3 days Description: Character: Burning Location: epigastric region Radiation: RUQ/LUQ Intensity: 2/10 Progression of Symptoms: same Accompanying Signs & Symptoms: Fever/chills: no Gas/Bloating: YES Nausea: YES Vomitting: no Diarrhea: no Constipation:no Dysuria: no Hematuria: no Frequency: no Incontinence of urine: no History: Last bowel movement: today-normal Trauma: no Previous similar pain: no Previous tests done: Labs and UA yesterday Previous Abdominal surgery: YES- Hysterectomy, Gallbladder removed Precipitating factors: Does the pain change with: Food: YES- increased pain Bowel Movement: no Urination: no Other factors: YES- Awoke with hiccups this AM, also notes she is on a lot of new medications due to stroke in December, increased abdominal pain when taking Aspirin, didn't take this today Therapies tried and outcome: Tums, did not help When food last eaten: banana this morning @ 08:15 AM today Review of Systems Constitutional, neuro, ENT, endocrine, pulmonary, cardiac, gastrointestinal, genitourinary, musculoskeletal, integument and psychiatric systems are negative, except as otherwise noted. Objective BP 116/64 (BP Location: Left arm, Patient Position: Chair, Cuff Size: Adult Large) Pulse 76 Temp 97.5 ??F (36.4 ??C) (Oral) Resp 18 Wt 96.2 kg (212 lb) LMP 01/07/2006 SpO2 97% BMI 31.77kg/m?? Body mass index is 31.77 kg/m??. Physical Exam GENERAL: alert and no distress NECK: no adenopathy, no asymmetry, masses, or scars RESP: lungs clear to auscultation - no rales, rhonchi or wheezes CV: regular rate and rhythm, normal S1 S2, no S3 or S4, no murmur, click or rub, no peripheral edema ABDOMEN: soft, nontender, no hepatosplenomegaly, no masses and bowel sounds normal MS: no gross musculoskeletal defects noted, no edema BACK: left CVA tenderness, no paralumbar tenderness Signed Electronically by: Janna Jo APRN CNP documented in this encounter Plan of Treatment Upcoming Encounters Date Type Department Care Team (Late st Contact Info) Description 06/08/2024 8:30 AM CDT Office Visit [facility] [address] [place] [address] Denise Woodson , ARTS AND HUMANITIES COUNCIL DIRECTOR SENIOR QA AUTOMATION ENGINEER [address] [place] [address] documented as of this encounter Goals Goal [...] Mental Health weekly - PT, OT and MR TEACHER - PCP appointment 03/17/24 - Neurology [...] clinic with 24/7 after hours services available. Pensions Retirement Plan Specialist will remain available as needed. documented as of this encounter Procedures Procedure Name Priority Date/Time Associated Diagnosis Comments CBC WITH PLATELETS AND DIFFERENTIAL STAT 02/28/2024 [...] epigastric TSH WITH FREE T4 REFLEX Routine 02/28/2024 10:27 AM CDT Flank pain documented in this encounter Results * CT Abdomen Pelvis w Contrast (02/28/2024 10:59 AM CDT) Anatomical Region Laterality Modality Abdomen/Pelvis, SUBRAD CT ALEJANDRA DY, UMP CT ABDOMEN PELVIS, RAD CT Computed Tomography Impressions 02/28/2024 11:22 AM CDT IMPRESSION: No acute abnormality in the abdomen or pelvis. No cause for abdominal pain is identified. PETRONA HARRIS MD Narrative 02/28/2024 11:22 AM CDT [...] body. Procedure Note Petrona Harris MD - 02/28/2024 CT ABDOMEN AND [...] abdominal pain is identified. PETRONA HARRIS MD Janna Chaudharilett ARTS AND HUMANITIES COUNCIL DIRECTOR SENIOR QA AUTOMATION ENGINEER IMG CT ORDER NASRIN * CBC with platelets and differential (02/28/2024 10:38 AM CDT) WBC Count 8.6 4.0 - 11.0 10e3/uL 02/28/2024 11:14 AM CDT [facility] RBC Count 4.98 3.80 - 5.20 10e6/uL 02/28/2024 11:14 AM CDT [facility] Hemoglobin 15.1 11.7 - 15.7 g/dL 02/28/2024 11:14 AM CDT [facility] Hematocrit 46.0 35.0 - 47.0 % 02/28/2024 11:14 AM CDT [facility] MCV 92 78 - 100 fL 02/28/2024 11:14 AM CDT [facility] MCH 30.3 26.5 - 33.0 pg 02/28/2024 11:14 AM CDT [facility] MCHC 32.8 31.5 - 36.5 g/dL 02/28/2024 11:14 AM CDT [facility] RDW 12.2 10.0 - 15.0 % 02/28/2024 11:14 AM CDT [facility] Platelet Count 191 150 - 450 10e3/uL 02/28/2024 11:14 AM CDT [facility] % Neutrophils 62 % 02/28/2024 11:14 AM CDT [facility] % Lymphocytes 26 % 02/28/2024 11:14 AM CDT [facility] % Monocytes 6 % 02/28/2024 11:14 AM CDT [facility] % Eosinophils 5 % 02/28/2024 11:14 AM CDT [facility] % Basophils 1 % 02/28/2024 11:14 AM CDT [facility] % Immature Granulocytes 0 % 02/28/2024 11:14 AM CDT [facility] NRBCs per 100 WBC 0 <1 /100 024 11:14 AM CDT [facility] Absolute Neutrophils 5.4 1.6 - 8.3 10e3/uL 02/28/2024 11:14 AM CDT [facility] Absolute Lymphocytes 2.2 0.8 - 5.3 10e3/uL 02/28/2024 11:14 AM CDT [facility] Absolute Monocytes 0.5 0.0 - 1.3 10e3/uL 02/28/2024 11:14 AM CDT [facility] Absolute Eosinophils 0.5 0.0 - 0.7 10e3/uL 02/28/2024 11:14 AM CDT [facility] Absolute Basophils 0.0 0.0 - 0.2 10e3/uL 02/28/2024 11:14 AM CDT [facility] Absolute Immature Granulocytes 0.0 <=0.4 10e3/uL 02/28/2024 11:14 AM CDT [facility] Absolute NRBCs 0.0 10e3/uL 02/28/2024 11:14 AM CDT [facility] Blood VENOUS LINE / Unknown Venipuncture / Unknown 02/28/2024 10:38 AM CDT 02/28/2024 10:47 AM CDT Janna Jo APRN, CNP LAB - BLOOD ORDERABLES LABORATORY [facility] [address] [facility] Lab (1st floor, no room number) [place] [address] * Erythrocyte sedimentation rate auto (02/28/2024 10:38 AM CDT) [facility] Erythrocyte Sedimentation Rate 20 0 - 20 mm/hr 02/28/2024 11:18 AM CDT [facility] Blood VENOUS LINE / Unknown Venipuncture / Unknown 02/28/2024 10:38 AM CDT 02/28/2024 10:47 AM CDT Janna Jo APRN [facility] LAB - BLOOD ORDERABLES Performing Organization Address City/[facility]/ZIP Co de Phone Number LABORATORY [facility] [address] Lab (1st floor, no room number) [place] [phone] [place] [address] * (ABNORMAL) CRP inflammation (02/28/2024 10:38 AM CDT) Pathologist [facility] CRP Inflammation 6.29(H) <5.00 mg/L 02/28/2024 11:39 AM CDT LABORATORY Blood VENOUS LINE / Unknown Venipuncture / Unknown 02/28/2024 10:38 AM CDT 02/28/2024 10:47 AM CDT Janna Parsonsbrian Jo APRN [facility] LAB - BLOOD ORDERABLES Performing Organization Address [facility]/ZIP Co de Phone Number LABORATORY [facility] [address] Lab (1st floor, no room number) [place] [phone] [place] [address] * (ABNORMAL) Comprehensive metabolic panel (02/28/2024 10:38 AM CDT) [facility] Sodium 139 135 - 145 mmol/L 02/28/2024 11:39 AM CDT LABORATORY Comment:Reference intervals for this test were updated on 06/11/2023 to more accurately reflect our healthy population. There may be differences in the flagging of prior results with similar values performed with this method. Interpretation of those prior results can be made in the context of the updated reference intervals. Potassium 4.5 3.4 - 5.3 mmol/L 02/28/2024 11:39 AM CDT LABORATORY Carbon Dioxide (CO2) 28 22 - 29 mmol/L 02/28/2024 11:39 AM CDT [facility] Anion Gap 11 7 - 15 mmol/L 02/28/2024 11:39 AM CDT [facility] Urea Nitrogen 15.0 6.0 - 20.0 mg/dL 02/28/2024 11:39 AM CDT LABORATORY Creatinine 0.87 0.51 - 0.95 mg/dL 02/28/2024 11:39 AM CDT LABORATORY GFR Estimate 82 >60 mL/min/1. 73m2 02/28/2024 11:39 AM CDT [facility] Comment:eGFR calculated us2020 CKD-EPI equation. Calcium 9.8 8.6 - 10.0 mg/dL 02/28/2024 11:39 AM CDT [facility] Chloride 100 98 - 107 mmol/L 02/28/2024 11:39 AM CDT [facility] Glucose 87 70 - 99 mg/dL 02/28/2024 11:39 AM CDT [facility] Alkaline Phosphatase 92 40 - 150 U/L 02/28/2024 11:39 AM CDT [facility] AST 21 0 - 45 U/L 02/28/2024 11:39 AM CDT [facility] Comment:Reference intervals for this test were updated on 02/25/2023 to more accurately reflect our healthy population. There may be differences in the flagging of prior results with similar values performed with this method. Interpretation of those prior results can be made in the context of the updated reference intervals. ALT 16 0 - 50 U/L 02/28/2024 11:39 AM CDT [facility] Comment:Reference intervals for this test were updated on 02/25/2023 to more accurately reflect our healthy population. There may be differences in the flagging of prior results with similar values performed with this method. Interpretation of those prior results can be made in the context of the updated reference intervals. Protein Total 7.9 6.4 - 8.3 g/dL 02/28/2024 11:39 AM CDT [facility] Albumin 4.7 3.5 - 5.2 g/dL 02/28/2024 11:39 AM CDT [facility] Bilirubin Total 1.4(H) <=1.2 mg/dL 02/28/2024 11:39 AM CDT [facility] Blood VENOUS LINE / Unknown Venipuncture / Unknown 02/28/2024 10:38 AM CDT 02/28/2024 10:47 AM CDT Janna Jo APRN SENIOR QA AUTOMATION ENGINEER LAB - BLOOD ORDERABLES [facility] [address] Lab (1st floor, no room number) [place] [address], [facility] * TSH with free T4 reflex (02/28/2024 10:27 AM CDT) TSH 3.87 0.30 - 4.20 uIU/mL 02/28/2024 11:56 AM CDT LABORATORY Blood ARTERIAL LINE / Unknown Venipuncture / Unknown 02/28/2024 10:27 AM CDT 02/28/2024 11:08 AM CDT Janna Maranda Jo APRN, CNP LAB - BLOOD ORDERABLES LABORATORY [facility] [address] Lab (1st floor, no room number) [place] [address], [facility] documented in this encounter Visit Diagnoses Diagnosis Flank pain Abdominal pain, unspecified site Abdominal pain, epigastric TSH elevation Other abnormal blood chemistry Flank pain Abdominal pain, unspecified site Abdominal pain, epigastric documented in this encounter Administered Medications Active Administered Medications - up to 3 most recent administrations Medication Order MAR Action Action Date Dose Rate Site sodium chloride (PF) 0.9% PF flush 3 mL 3 mL, Intravenous, EVERY 1 MIN PRN, line flush, Starting on Sat02/28/24 at 1022 $Given 02/28/2024 10:39 AM CDT 3 mLs $Given 02/28/2024 10:35 AM CDT 3 mLs documented in this encounter Additional Health Concerns Active Problems Noted Date Diagnosed Date Increased risk of re-admission 02/18/2024 Assessment Noted Time PHQ-9 Depression Total Score: 16 024 3:27 PM CDT documented as of this encounter Care Teams Retail Loss Prevention Specialist Relationship Specialty Start Date End Date Winston Villatoro OD [facility] [place] [address] [place] [address] PCP - Ophthalmology Ophthalmology 02/11/13 Denise Woodson Ra, APRN CNP [address] [address] PCP - General Family Practice 09/21/20 Denise Woodson Ra, APRN CNP [address] [facility] [address] Assigned PCP 07/17/20 Usha Simon APRN SENIOR QA AUTOMATION ENGINEER [address] [place] [id number] [address] Nurse Practitioner Neurological Surgery 01/24/24 Dangelo Salinas MD [address] [place] [address] Neurology 01/27/24 Usha Simon APRN SENIOR QA AUTOMATION ENGINEER [address] [id number] Assigned Neuroscience Provider 02/06/24 03/07/24 Anastasia Stearns, RN Lead Pensions Retirement Plan Specialist 02/06/24 Germaine Lopez, CHW Community Health Worker Primary Care - CC 02/18/24 documented as of this encounter
--- OUTSIDE RECORDS SUMMARY | 2024-05-07 18:46 | XMS_ITS | Encounter Summary ---
Author Organization [facility] Address [address] [place] [address] Care Team Providers Care Emergency Room Physician Name Role Phone Winston Villatoro OD Unavailable [phone] Deinse Woodson Ra, APRN KILN FIRER Unavailable [phone]- [phone] Denise Woodson Ra LEAD BI DEVELOPER KILN FIRER Primary Care Provid er Usha Simon APRN KILN FIRER Unavailable [phone] Dangelo Salinas MD Unavailable Usha Simon APRN KILN FIRER Unavailable [phone] Anastasia Stearns RN Unavailable [phone] Germaine Lopez CHW Unavailable [phone] Reason for Visit * Rehab Therapy Integrated Services (Routine) - Authorized Specialty Diagnoses / Procedures Referred By Nila shah Referred To Contact Diagnoses Cerebrovascular accident (CVA), unspecified mechanism (H) [address] [address] Referral ID Status Reason Start Date Expiration Date V isits Requested Visits Authorized [id number] Authorized 09/16/2023 09/15/2024 365 365 Encounter Details Date Type Department Care Team (Late st Contact Info) Description 03/05/2024 1:30 PM CDT Therapy Visit [address] [address] Danya You, PA [address] [place] [address] [address] [place] [address] Isabel Beaulieu, OTR [address] [address] Cerebrovascular accident (CVA), unspecified mechanism (H) (Primary [...] Never 02/28/2024 How often do you attend restorationist or quaker serv ices? Never 02/28/2024 Do you belong to any clubs o r organizations such as restorationist groups, unions, fraternal or athletic groups, or [...] Answer Date Recorded PHQ-2 Score 4 02/12/2024 [facility] [place] of Occupat ional Health - Occupational Stress [...] Description 06/08/2024 8:30 AM CDT Office Visit [facility] [address] [place] [address] Denise Woodson Ra, LEAD BI DEVELOPER KILN FIRER [address] [place] [address] documented as of this encounter Goals Goal [...] Mental Health weekly - PT, OT and SCREEN PRINTING PASTER - PCP appointment 03/17/24 - Neurology 05/05/24, [...] clinic with 08/04 after hours services available. Building Repair Maintenance Supervisor will remain available as needed. documented as of this encounter Visit Diagnoses Diagnosis Cerebrovascular accident (CVA), unspecified mechanism (H)- Primary documented in this encounter Additional Health Concerns Active Problems Noted Date Diagnosed Date Increased risk of re-admission 02/18/2024 Assessment Noted Time PHQ-9 Depression Total Score: 16 024 3:27 PM CDT documented as of this encounter Care Teams Emergency Room Physician Relationship Specialty Start Date End Date Winston Villatoro OD [facility] [place] [address] [place] [address] PCP - Ophthalmology Ophthalmology 02/11/13 Denise Woodson Ra, LEAD BI DEVELOPER KILN FIRER [address] [address] [place] [address] PCP - General Family Practice 09/21/20 Denise Woodson Ra, APRN KILN FIRER [address] [place] [address] Assigned PCP 07/17/20 Usha Simon APRN KILN FIRER [address] [address] Nurse Practitioner Neurological Surgery 01/24/24 Dangelo Salinas MD [address] [place] [address] Neurology 01/27/24 Usha Simon APRN KILN FIRER [address] [address] Assigned Neuroscience Provider 02/06/24 03/07/24 Anastasia Stearns, RN Lead Building Repair Maintenance Supervisor 02/06/24 Germaine Lopez, CHW Community Health Worker Primary Care - CC 02/18/24 documented as of this encounter
[2024-05-07 18:47] LABS: Basophils Absolute Auto 0.03 K/uL (0.00-0.30); Basophils Percent Auto 0.4 % (0.0-3.0); Eosinophils Percent Auto 8.9 % (0.0-7.0); Hemoglobin* 14.1 gm/dL (12.0-16.0); Immature Granulocytes Abs Auto 0.01 K/uL (0.00-0.30); Immature Granulocytes Pct Auto 0.1 %; Lymphocytes Absolute Auto 2.18 K/uL (0.90-2.90); Mean Corpuscular HGB Conc 33 gm/dL (32-36); Mean Corpuscular Hemoglobin 30 pg (26-34); Mean Corpuscular Volume 92 fL (80-100); Monocytes Percent Auto 6.9 % (0.0-11.0); Neutrophils Absolute Auto 3.52 K/uL (1.7-7.0); Neutrophils Percent Auto 51.7 % (42.0-72.0); Platelet Count* 180 K/uL (140-440); RDW Coefficient of Variation % 11.7 % (11.5-15.5); White Blood Count* 6.82 K/uL (4.50-11.00)
--- OUTSIDE RECORDS SUMMARY | 2024-05-07 18:47 | XMS_ITS | Encounter Summary ---
Author Organization [facility] Address [address] [place] [address] Care Team Providers Care Centrifugal Casting Machine Tender Name Role Phone ShaunaWinston OD Unavailable [phone] Denise Woodson Ra, APRN JAVA SQL DEVELOPER Unavailable [phone] Denise Woodson Ra, APRN JAVA SQL DEVELOPER Primary Care Provid er Usha Simon APRN JAVA SQL DEVELOPER Unavailable [phone] Dangelo Salinas MD Unavailable Usha Simon APRN JAVA SQL DEVELOPER Unavailable [phone] Anastasia Stearns RN Unavailable [phone] Encounter Details Date Type Department Care Team [...] Description 06/08/2024 8:30 AM CDT Office Visit [facility] [place] [address] [place] [address] Denise Woodson Ra, BARRERA JAVA SQL DEVELOPER [address] [place] [address] documented as of this encounter Visit Diagnoses Not on filedocumented in this encounter Additional Health Concerns Assessment Noted Time PHQ-9 Depression Total Score: 16 024 3:27 PM CDT documented as of this encounter Care Teams Centrifugal Casting Machine Tender Relationship Specialty Start Date End Date Winston Villatoro OD [facility] [place] [address] [facility] [address] [place] [address] PCP - Ophthalmology Ophthalmology 02/11/13 Denise Woodson Ra, BARRERA JAVA SQL DEVELOPER [address] [place] [address] PCP - General Family Practice 09/21/20 Denise Woodson Ra, APRN JAVA SQL DEVELOPER [address] [place] [address] Assigned PCP 07/17/20 Usha Simon APRN JAVA SQL DEVELOPER [address]09 [facility], [place] [address] Nurse Practitioner Neurological Surgery 01/24/24 Dangelo Salinas MD [address] [place] [address] Neurology 01/27/24 Usha Simon APRN JAVA SQL DEVELOPER 9 [facility], [place] [address] Assigned Neuroscience Provider 02/06/24 03/07/24 Anastasia Stearns, RN Lead Cleaning Staff Supervisor 02/06/24 documented as of this encounter
--- OUTSIDE RECORDS SUMMARY | 2024-05-07 18:47 | XMS_ITS | Encounter Summary ---
Author Organization [facility] Address [address] [place] [address]. [place] [address] Care Team Providers Care Storm Chaser Name Role Phone Winston Villatoro OD Unavailable [phone] Denise Woodson Ra, APRN UNIT NURSE Unavailable + [phone] Denise Woodson Ra TOBACCO SHAKER UNIT NURSE Primary Care Provid er Usha Simon APRN UNIT NURSE Unavailable + [phone] Dangelo Salinas MD Unavailable Usha Simon APRN UNIT NURSE Unavailable + [phone] Anastasia Stearns RN Unavailable [phone] Reason for Visit * Reason Onset Date Comments Medication Request 02/14/2024 Forms 02/14/2024 Encounter Details Date Type Department Care Team (Late st Contact Info) Description 02/14/2024 [facility] Medical Advice [facility] [address] [place] [address] Denise Woodson Ra, APRN UNIT NURSE [address] [place] [address] Medication Request; Forms Social History [...] - 02/14/2024 10:53 AM CDT Denise- see Nostot message below. Are you taking over requested medications? Also I do not see forms encounter and note to pick-up form? Please advise. Filomena Gomez RN documented in this encounter Plan of Treatment Upcoming Encounters Date Type Department Care Team (Late st Contact Info) Description 06/08/2024 8:30 AM CDT Office Visit [facility] [address] [place] [address] Denise Woodson Ra, APRN UNIT NURSE [address] [place] [address] documented as of this encounter Visit Diagnoses Diagnosis Cerebrovascular accident (CVA), unspecified mechanism (H) History of seizure documented in this encounter Additional Health Concerns Assessment Noted Time PHQ-9 Depression Total Score: 16 024 3:27 PM CDT documented as of this encounter Care Teams Storm Chaser Relationship Specialty Start Date End Date Shauna Winston Se [facility] [place] [address] [place] [address] PCP - Ophthalmology Ophthalmology 02/11/13 Denise Woodson Ra, TOBACCO SHAKER UNIT NURSE [address] [place] [address] PCP - General Family Practice 09/21/20 Denise Woodson Ra TOBACCO SHAKER UNIT NURSE [address] [place] [address] Assigned PCP 07/17/20 Usha Simon APRN UNIT NURSE 909 [facility] [address] Nurse Practitioner Neurological Surgery 01/24/24 Dangelo Salinas MD [address] [place] [address] Neurology 01/27/24 Usha Simon APRN UNIT NURSE 909 [facility] [address] Assigned Neuroscience Provider 02/06/24 03/07/24 Anastasia Stearns, RN Lead Field Crop Harvest Contractor 02/06/24 documented as of this encounter
--- OUTSIDE RECORDS SUMMARY | 2024-05-07 18:47 | XMS_ITS | Encounter Summary ---
Author Organization [facility] Address [address] [place] [address] Care Team Providers Care Other Sales Support Worker Name Role Phone Winston Villatoro OD Unavailable [phone] Denise Woodson Ra, APRN CHIP SEPARATOR Unavailable [phone] Denise Woodson Ra, APRN CHIP SEPARATOR Primary Care Provid er Usha Simon APRN CHIP SEPARATOR Unavailable [phone] Dangelo Salinas MD Unavailable Usha Simon APRN CHIP SEPARATOR Unavailable [phone] Anastasia Stearns RN Unavailable [phone] Germaine Lopez CHW Unavailable [phone] Encounter Details Date Type Department Care Team [...] Description 06/08/2024 8:30 AM CDT Office Visit [facility] [address] [place] [address] Denise Woodson Ra, PRODUCTION EXPERT [facility] [address] [facility] [place] [address] documented as of this encounter Goals Goal [...] Mental Health weekly - PT, OT and PROCUREMENT SPECIALIST - PCP appointment 03/17/24 - Neurology [...] clinic with 24/7 after hours services available. Floor Care Technician will remain available as needed. documented as of this encounter Visit Diagnoses Not on filedocumented in this encounter Additional Health Concerns Active Problems Noted Date Diagnosed Date Increased risk of re-admission 02/18/2024 Assessment Noted Time PHQ-9 Depression Total Score: 16 024 3:27 PM CDT documented as of this encounter Care Teams Other Sales Support Worker Relationship Specialty Start Date End Date Winston Villatoro OD [facility] [place] [address] [place] [address] PCP - Ophthalmology Ophthalmology 02/11/13 Denise Woodson Ra, APRN CHIP SEPARATOR [address] [place] [address] PCP - General Family Practice 09/21/20 Denise Woodson Ra, APRN CHIP SEPARATOR [address] [place] [address] Assigned PCP 07/17/20 Usha Simon APRN CHIP SEPARATOR [address] [address], [place] [address] Nurse Practitioner Neurological Surgery 01/24/24 Dangelo Salinas MD [address] [place], [place] [address] Neurology 01/27/24 Usha Simon APRN CHIP SEPARATOR [address], [place] [address] Assigned Neuroscience Provider 02/06/24 03/07/24 Anastasia Stearns, RN Lead Floor Care Technician 02/06/24 Germaine Lopez, CHW Community Health Worker Primary Care - CC 02/18/24 documented as of this encounter
--- OUTSIDE RECORDS SUMMARY | 2024-05-07 18:47 | XMS_ITS | Encounter Summary ---
Author Organization [facility] Address [address] [place] [address] Care Team Providers Care Stud Driver Name Role Phone Winston Villatoro OD Unavailable [phone] Denise Woodson Ra, APRN ROTARY PUMP OPERATOR Unavailable [phone] Denise Woodson Ra BAILING MACHINE OPERATOR ROTARY PUMP OPERATOR Primary Care Provid er Usha Simon APRN ROTARY PUMP OPERATOR Unavailable [phone] Dangelo Salinas MD Unavailable Usha Simon APRN ROTARY PUMP OPERATOR Unavailable [phone]- [phone] Anastasia Stearns RN Unavailable [phone] Reason for Visit * Reason Comments Dizziness Encounter Details Date Type Department Care Team (Late st Contact Info) Description 02/13/2024 12:11 PM CDT - 02/13/2024 3:28 PM CDT Emergency [facility] Emergency Dept [address] [place] [address] Dangelo Sylvester DO [facility] [address] [facility] [place] [address] Dizziness Discharge Disposition: Home or Self Care [...] be sent through Care Everywhere. * Dizziness (Mauritian) documented in this encounter Medications at Time [...] encounter Consult Notes * Kaur Mason APRN ROTARY PUMP OPERATOR - 02/13/2024 12:16 PM CDT Images from the original note were not included. [facility] Stroke Code Note History of Present Illness [...] 02/04/24: On 01/04/24, the patient presented to [facility] ED for evaluation of persistent headache and [...] to outpatient PT/OT. She presented again to [facility] ER on 01/13 for continued frustration about [...] BPPV per primary team Kaur Mason APRN ROTARY PUMP OPERATOR Vascular Neurology To page me or covering stroke neurology meat team member, click here: AMCOM Choose Time Motion Analyst tab at top, then select NEUROLOGY/ALL SITES [...] Reflexes: unable to test (telestroke) Coordination: normal elxohn-mh-voiy and xbrw-km-bwec bilaterally without dysmetria Station/Gait[facility] Labs CBC [...] communication per Philomena Originating site (patient location) [facility] Distant site (provider location) [facility] Clinically Significant Risk Factors Present on Admission [...] history, physical and plan for Alcon A Almo. 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 Discharged in setting of acute mental status change, concern for seizure, workup felt not consistent with seizure, episodes felt related to fatigue/stress. Functionally making progress with ongoing strength, balance, activity tolerance, and cognition below baseline, plan fo rhome with outpatient PT/OT/COCONUT BOILER. Past Medical History Medical History, Surgical History, [...] hearing B/L, midline tongue protrusion with nl nrqq-lc-iqef movement, normal shoulder shrug). RUE strength 5/5: ward service supervisor, finger abd, wrist flex/ext, elbow flex/ext. LUE strength 5/5: ward service supervisor, finger abd, wrist flex/ext, elbow flex/ext. RLE strength 5/5: ankle flex/ext, knee flex/ext, hip flex. LLE strength 5/5: ankle flex/ext, knee flex/ext, hip flex. Sensation equal in all 4 extremities. No arm drift. Cerebellar: The patient is able to perform tuahgi-qfpk-vbzgpk, rapid pronation/supination, and hand rolling without issue. [...] a DVA. FRAN ROBBINS MD SYSTEM ID: [id number] CTA Head Neck with Contrast Final Result IMPRESSION: 1. Head CTA demonstrates no aneurysm or stenosis of the major intracranial arteries. 2. Neck CTA demonstrates no stenosis of the major cervical arteries. Findings were discussed with Dr. Sylvester at 12:42 hours CDT. FRAN ROBBINS MD SYSTEM ID: [id number] CT Head w/o Contrast Final Result IMPRESSION: No acute intracranial pathology. FRAN ROBBINS MD SYSTEM ID: [id number] EKG ECG taken at 1251, ECG read at 1251 Sinus rhythm with occasional PVCs Possible left atrial enlargement Borderline ECG No significant change as compared to prior, dated 02/04/2024. Rate 81 bpm. MA interval 166 ms. QRS duration 84 ms. [...] with stroke neurology. 1241 D/W Dr. Robbins ([facility]): No evidence of acute infarct, hemorrhage, [...] to home Medical Decision Making / Diagnosis [facility] Diagnoses: None Code Status: Prior [facility] Medical Decision Making: This 48-year-old female patient [...] Care: None. Disposition: See ED Course and [facility] ICD-10 Codes: ICD-10-CM 1. Dizziness R42 Discharge [...] AM CDT Office Visit [facility] [place] [address] [place] [address] Denise Woodson Ra, BAILING MACHINE OPERATOR [facility] [address] [facility], [place] [address] documented as of this encounter Procedures Procedure Name Priority Date/Time Associated Diagnosis Comments EKG 12-LEAD, TRACING ONLY STAT 03/03/2024 11:41 AM CDT MR BRAIN W/O CONTRAST STAT 02/13/2024 2:50 [...] CDT documented in this encounter Results * EKG 12-lead, tracing only (03/03/2024 11:41 AM CDT) Systolic Blood Pressure mmHg RADIOLOGY RESULTS Diastolic Blood Pressure mmHg RADIOLOGY RESULTS Ventricular Rate 64 BPM RAD IOLOGY RESULTS Atrial Rate 64 BPM RADIOLOG Y RESULTS MA Interval 160 ms RADIOLOG Y RESULTS QRS Duration 92 ms RADIOLO GY RESULTS QT 402 ms RADIOLOGY RESULTS QTc 414 ms RADIOLOGY RESULTS P [place] 53 degrees RADIOLOGY RESULTS R AXIS 69 degrees RADIOLOGY RESULTS T [place] 28 degrees RADIOLOGY RESULTS Interpretation ECG Sinus rhythm Possible Left atrial enlargement Borderline ECG When compared with ECG of 13-FEB-2024 12:51, Premature ventricular complexes are no longer Present RADIOLOGY RESULTS 03/03/2024 11:4 1 AM CDT Dangelo Sylvester DO ECG ORDERABLES RADIOLOGY RESULTS * MR Brain w/o Contrast (02/13/2024 2:50 [...] a DVA. FRAN ROBBINS MD SYSTEM ID: ??[id number] Narrative 02/13/2024 3:14 PM CDT MR BRAIN [...] a DVA. FRAN ROBBINS MD SYSTEM ID: [id number] Dangelo Sylvester DO IMG MRI ORDERABL ES * EKG 12-lead, tracing only (02/13/2024 12:51 PM CDT) Systolic Blood Pressure mmHg RADIOLOGY RESULTS Diastolic Blood Pressure mmHg RADIOLOGY RESULTS Ventricular Rate 81 BPM RAD IOLOGY RESULTS Atrial Rate 81 BPM RADIOLOG Y RESULTS MA Interval 166 ms RADIOLOG Y RESULTS QRS Duration 84 ms RADIOLO GY RESULTS QT 358 ms RADIOLOGY RESULTS QTc 415 ms RADIOLOGY RESULTS P [place] 52 degrees RADIOLOGY RESULTS R AXIS 54 degrees RADIOLOGY RESULTS T [place] 15 degrees RADIOLOGY RESULTS Interpretation ECG Sinus rhythm with occasional Premature ventricular complexes Possible Left atrial enlargement Borderline ECG When compared with ECG of 04-FEB-2024 14:46, QT has shortened Unconfirmed report - interpretation of this ECG is computer generated - see medical record for final interpretation Confirmed by - EMERGENCY ROOM, PHYSICIAN ([id number]), proposal editor Jc Rouse ([id number]) on 02/13/2024 1:07:34 PM RADIOLOGY RESULTS 02/13/2024 [...] hours CDT. FRAN ROBBINS MD SYSTEM ID: ??[id number] Narrative 02/13/2024 12:49 PM CDT EXAM: CTA [...] of the upper aortic arch through the [place]. This CT angiogram data was [...] of the upper aortic arch through the [place]. This CT angiogram data was [...] hours CDT. FRAN ROBBINS MD SYSTEM ID: [id number] Dangelo Sylvester DO IMG CT ORDERABLE S * CT Head w/o Contrast (02/13/2024 12:28 PM CDT) Anatomical Region Laterality Modality Head, SUBRAD CT NEURO, SUBRA D CT NEURO, UMP CT NEURO, RAD CT Computed Tomography Impressions 02/13/2024 12:49 PM CDT IMPRESSION: No acute intracranial pathology. FRAN ROBBINS MD SYSTEM ID: ??[id number] Narrative 02/13/2024 12:49 PM CDT EXAM: CT HEAD W/O CONTRAST ??02/13/2024 12:28 PM HISTORY: ??Code Stroke to evaluate for potential thrombolysis and thrombectomy. PLEASE READ IMMEDIATELY. ?? COMPARISON: ??Brain MRI, Head CT and CTA 02/04/2024 TECHNIQUE: Using multidetector thin collimation helical acquisition technique, axial, coronal and sagittal CT images from the skull base to the vertex were obtained without intravenous contrast. Airplane Flight Attendant Supervisor (topogram) image(s) also obtained and reviewed. Dose [...] the vertex were obtained without intravenous contrast. Airplane Flight Attendant Supervisor (topogram) image(s) also obtained and reviewed. Dose [...] intracranial pathology. FRAN ROBBINS MD SYSTEM ID: [id number] Dangelo Sylvester DO IMG CT ORDERABLE S * Glucose by meter (02/13/2024 12:18 PM CDT) GLUCOSE BY METER POCT 95 70 - 99 mg/dL 02/13/2024 12:25 PM CDT LABORATORY POC Blood, venous BLOOD SPECIMEN / Unknown 02/13/2024 12:18 PM CDT 02/13/2024 12:25 PM CDT Dangelo Tavares Sylvester DO LAB - BEAKER POC T RH LABORATORY POC [facility] Acute Care Lab [address] Lab (1st floor, no room number) [place] [address], [facility] * CBC with platelets [...] PM CDT Dangelo Sylvester LAB - BLOOD WADING RIVERE SUDEEP LABORATORY [facility] Acute Care Lab [address] Lab (1st floor, no room number) [place] [address], [facility] * hCG Qualitative (02/13/2024 12:16 PM CDT) Pathologist [facility] hCG Serum Qualitative Negative Negative PRATEEK 02/13/2024 12:49 PM CDT RH LABORATORY Comment:This test is for scr eening purposes. Results should be interpreted along with the clinical picture. Confirmation testing is available if warranted by ordering [id number], HCG Quantitative . Blood BLOOD SPECIMEN / Unknown Venipuncture / Unknown 02/13/2024 12:16 PM CDT 02/13/2024 12:20 PM CDT Dangelo Sylvester LAB - BLOOD ORDE SUDEEP LABORATORY [facility] Acute Care Lab [address] Lab (1st floor, no room number) [place] [address], [facility] * Troponin T, High [...] Sylvester DO LAB - BLOOD LUNAE SUDEEP [facility] Acute Care Lab [address] Lab (1st floor, no room number) [place] [address] * Partial thromboplastin time (02/13/2024 12:16 PM CDT) aPTT 26 22 - 38 Seconds 02/13/2024 12:42 PM CDT LABORATORY Blood BLOOD SPECIMEN / Unknown Venipuncture / Unknown 02/13/2024 12:16 PM CDT 02/13/2024 12:20 PM CDT Dangelo Sylvester LAB - BLOOD ORDE SUDEEP [facility] Acute Care Lab [address] Lab (1st floor, no room number) [place] [address] * INR (02/13/2024 12:16 PM CDT) INR 0.94 0.85 - 1.15 02/13/2024 12:42 PM CDT RH LABORATORY Blood BLOOD SPECIMEN / Unknown Venipuncture / Unknown 02/13/2024 12:16 PM CDT 02/13/2024 12:20 PM CDT Dangelo Sylvester DO LAB - BLOOD PAM SHEETS RH LABORATORY [facility] [address] [facility] ([facility] floor, no room number) [place] [address], [facility] * Basic metabolic panel (02/13/2024 [...] DO LAB - BLOOD LUNAE SUDEEP LABORATORY [facility] Acute Care Lab [address] Lab (1st floor, no room number) [place] [address], [facility] documented in this encounter [...] Head/Neck scan. 1231 ($Given - Provi andreia: Jerilynpetros Bagley) prochlorperazine (COMPAZINE) injection 10 mg (COMPLETED) [...] med 67 mL, Intravenous, ONCE, On Marii 24 at 1215, For 1 dose, To be [...] documented as of this encounter Care Teams Stud Driver Relationship Specialty Start Date End Date Winston Villatoro OD [facility] [place] [address] [place] [address] PCP - Ophthalmology Ophthalmology 02/11/13 Denise Woodson Ra, APRN ROTARY PUMP OPERATOR [address] [place] [address] PCP - General Family Practice 09/21/20 Denise Woodson Ra, APRN ROTARY PUMP OPERATOR [address] [place] [address] Assigned PCP 07/17/20 Usha Simon APRN ROTARY PUMP OPERATOR [address] [place] [address] Nurse Practitioner Neurological Surgery 01/24/24 Dangelo Salinas MD [address] [place] [address] Neurology 01/27/24 Usha Simon APRN ROTARY PUMP OPERATOR [address] [place] [address] Assigned Neuroscience Provider 02/06/24 03/07/24 Anastasia Stearns, RN Lead Manager Inspection 02/06/24 documented as of this encounter
--- OUTSIDE RECORDS SUMMARY | 2024-05-07 18:47 | XMS_ITS | Encounter Summary ---
Author Organization [facility] Address [address] [place] [address]. [place] [address] Care Team Providers Care Instructor Bus Trolley And Taxi Name Role Phone Winston Villatoro OD Unavailable [phone] Denise Woodson Ra, APRN CEMENTER MACHINE JOINER Unavailable + [phone] Denise Woodson Ra BRICK MACHINE OPERATOR CEMENTER MACHINE JOINER Primary Care Provid er Usha Simon APRN CEMENTER MACHINE JOINER Unavailable + [phone] Dangelo Salinas MD Unavailable Usah Simon APRN CEMENTER MACHINE JOINER Unavailable + [phone] Anastasia Stearns RN Unavailable [phone] Germaine Lopez CHW Unavailable [phone] Encounter Details Date Type Department Care Team (Late st Contact Info) Description 02/27/2024 MyC Medical Advice [facility] [address] [place] [address] Denise Woodson Ra, APRN CEMENTER MACHINE JOINER [address] [place] [address] Social History Tobacco Use Types [...] How often do you attend gnosticism or episcopalian serv ices? Never 02/28/2024 Do you belong [...] Answer Date Recorded PHQ-2 Score 4 02/12/2024 [facility] [...] encounter Miscellaneous Notes * Telephone Encounter - Leanne Pineda RN - 02/27/2024 12:09 PM CDT See triage. Leanne Pineda RN documented in this encounter Plan of Treatment Upcoming Encounters Date Type Department Care Team (Late st Contact Info) Description 06/08/2024 8:30 AM CDT Office Visit [facility] [address] [place] [address] Denise Woodson Ra, BRICK MACHINE OPERATOR [facility] [address] [place] [address] documented as of this encounter [...] Mental Health weekly - PT, OT and FINANCIAL ASSISTANCE SPECIALIST - PCP appointment 03/17/24 - Neurology [...] clinic with 08/04 after hours services available. Wrapper Selector will remain available as needed. documented as of this encounter Visit Diagnoses Not on filedocumented in this encounter Additional Health Concerns Active Problems Noted Date Diagnosed Date Increased risk of re-admission 02/18/2024 Assessment Noted Time PHQ-9 Depression Total Score: 16 024 3:27 PM CDT documented as of this encounter Care Teams Instructor Bus Trolley And Taxi Relationship Specialty Start Date End Date Winston Villatoro OD [facility] [address] [place] [address] PCP - Ophthalmology Ophthalmology 02/11/13 Denise Woodson Ra, APRN CEMENTER MACHINE JOINER [address] [place] [address] PCP - General Family Practice 09/21/20 Denise Woodson Ra, APRN CEMENTER MACHINE JOINER [address] [address] [place] [address] Assigned PCP 07/17/20 Usha Simon APRN CEMENTER MACHINE JOINER 909 [facility] [place] [address] Nurse Practitioner Neurological Surgery 01/24/24 Dangelo Salinas MD [address] [place] [address] Neurology 01/27/24 Usha Simon APRN CEMENTER MACHINE JOINER 909 [facility] [place] [address] Assigned Neuroscience Provider 02/06/24 03/07/24 Anastasia Stearns, RN Lead Wrapper Selector 02/06/24 Germaine Lopez, W Community Health Worker Primary Care - CC 02/18/24 documented as of this encounter
--- OUTSIDE RECORDS SUMMARY | 2024-05-07 18:47 | XMS_ITS | Encounter Summary ---
Author Organization [place] Address [address] [place] [address] Care Team Providers Care Traffic Signal Technician Name Role Phone Winston Villatoro OD Unavailable [phone] Denise Woodson Ra, APRN ORACLE SQL DEVELOPER Unavailable [phone] Denise Woodson Ra, APRN ORACLE SQL DEVELOPER Primary Care Provid er Usha Simon APRN ORACLE SQL DEVELOPER Unavailable [phone] Dangelo Salinas MD Unavailable Usha Simon APRN ORACLE SQL DEVELOPER Unavailable [phone] Anastasia Stearns RN Unavailable [phone] Germaine Lopez CHW Unavailable [phone] Encounter Details Date Type Department Care Team (Latest Contact Info) Description 02/24/2024 Travel Social History Tobacco Use Types Packs/Day [...] Description 06/08/2024 8:30 AM CDT Office Visit [facility] [address] [place] [phone] Dneise Woodson Ra, SECURITY INTELLIGENCE ANALYST [facility] [address] [facility] [place] [address] documented as of this encounter Goals Goal [...] Mental Health weekly - PT, OT and BROOMCORN SCRAPER - PCP appointment 03/17/24 - Neurology 05/05/24, [...] clinic with 24/7 after hours services available. Transportation Economics Teacher will remain available as needed. documented as of this encounter Visit Diagnoses Not on filedocumented in this encounter Additional Health Concerns Active Problems Noted Date Diagnosed Date Increased risk of re-admission 02/18/2024 Assessment Noted Time PHQ-9 Depression Total Score: 16 024 3:27 PM CDT documented as of this encounter Care Teams Traffic Signal Technician Relationship Specialty Start Date End Date Winston Villatoro OD [facility] [place] [address] [place] [address] PCP - Ophthalmology Ophthalmology 02/11/13 Denise Woodson Ra, APRN ORACLE SQL DEVELOPER [address] [place] [address] PCP - General Family Practice 09/21/20 Denise Woodson Ra, APRN ORACLE SQL DEVELOPER [address] [place] [address] Assigned PCP 07/17/20 Usha Simon APRN ORACLE SQL DEVELOPER [address] [place] [place] [place], [place] [address] Nurse Practitioner Neurological Surgery 01/24/24 Dangelo Salinas MD [address] [place], [place] [id number] Neurology 01/27/24 Usha Simon APRN ORACLE SQL DEVELOPER [address] [place], [place] [address] Assigned Neuroscience Provider 02/06/24 03/07/24 Anastasia Stearns, RN Lead Transportation Economics Teacher 02/06/24 Germaine Lopez, CHW Community Health Worker Primary Care - CC 02/18/24 documented as of this encounter
--- OUTSIDE RECORDS SUMMARY | 2024-05-07 18:47 | XMS_ITS | Encounter Summary ---
Author Organization [facility] Address [address] [place] [address] Care Team Providers Care Vascular Technologist Sonographer Name Role Phone ShaunaWinston OD Unavailable [phone] Denise Woodson Ra, APRN SODDER Unavailable [phone] Denise Woodson Ra, APRN SODDER Primary Care Provid er Usha Simon APRN SODDER Unavailable [phone] Dangelo Salinas MD Unavailable Usha Simon APRN SODDER Unavailable [phone] Anastasia Stearns RN Unavailable [phone] Encounter Details Date Type Department Care Team [...] Description 06/08/2024 8:30 AM CDT Office Visit [facility] [place] [address] [place] [phone] Denise Woodson Ra, BARRERA SODDER [address] [place] [address] documented as of this encounter Visit Diagnoses Not on filedocumented in this encounter Additional Health Concerns Assessment Noted Time PHQ-9 Depression Total Score: 16 024 3:27 PM CDT documented as of this encounter Care Teams Vascular Technologist Sonographer Relationship Specialty Start Date End Date Winston Villatoro OD [facility] [place] [address] [facility] [address] [place] [address] PCP - Ophthalmology Ophthalmology 02/11/13 Denise Woodson Ra, BARRERA SODDER [address] [place] [address] PCP - General Family Practice 09/21/20 Denise Woodson Ra, APRN SODDER [address] [place] [address] Assigned PCP 07/17/20 Usha Simon APRN SODDER 909 [facility] [address] Nurse Practitioner Neurological Surgery 01/24/24 Dangelo Salinas MD [address] [place] [address] Neurology 01/27/24 Usha Simon APRN SODDER 9 [facility]121[place] [address] Assigned Neuroscience Provider 02/06/24 03/07/24 Anastasia Stearns, RN Lead Painter Ordnance 02/06/24 documented as of this encounter
--- OUTSIDE RECORDS SUMMARY | 2024-05-07 18:47 | XMS_ITS | Encounter Summary ---
Author Organization [facility] Address [address] [place] [address]. [place] [address] Care Team Providers Care Flow Trader Name Role Phone Winston Villatoro OD Unavailable [phone] Denise Woodson Ra, APRN PRINT DEVELOPER Unavailable [phone] Denise Woodson Ra CULINARY ARTIST PRINT DEVELOPER Primary Care Provid er Usha Simon APRN PRINT DEVELOPER Unavailable [phone] Dangelo Salinas MD Unavailable Usha Simon APRN PRINT DEVELOPER Unavailable [phone] Anastasia Stearns RN Unavailable [phone] Reason for Visit * Rehab Therapy Integrated Services (Routine) - Authorized Specialty Diagnoses / Procedures Referred By Contac t Referred To Contact Diagnoses Cerebrovascular accident (CVA), unspecified mechanism (H) [address] [address] Referral ID Status Reason Start Date Expiration Date V isits Requested Visits Authorized [id number] Authorized 09/16/2023 09/15/2024 365 365 Encounter Details Date Type Department Care Team (Latest Contact Info) Description 02/14/2024 2:00 PM CDT Therapy Visit [address] [phone] Danya You, AMAIRANI [address] [place] [address] Charis Chacon, J[facility]AN [facility] [address] [place] [address] Cerebrovascular accident (CVA), unspecified mechanism (H) (Primary [...] Description 06/08/2024 8:30 AM CDT Office Visit [facility] [address] [place] [address] Denise Woodson Ra, CULINARY ARTIST [facility] [address] [place] [address] documented as of this encounter Visit Diagnoses Diagnosis Cerebrovascular accident (CVA), unspecified mechanism (H)- Primary documented in this encounter Additional Health Concerns Assessment Noted Time PHQ-9 Depression Total Score: 16 024 3:27 PM CDT documented as of this encounter Care Teams Flow Trader Relationship Specialty Start Date End Date Winston Villatoro OD [facility] [place] [address] [facility] [address] [facility] [address] [place] [address] PCP - Ophthalmology Ophthalmology 02/11/13 Denise Woodson Ra, APRN PRINT DEVELOPER [address] [place], [place] [address] PCP - General Family Practice 09/21/20 Denise Woodson Ra, APRN PRINT DEVELOPER [address] [place] [place], [place] [address] Assigned PCP 07/17/20 Usha Simon APRN PRINT DEVELOPER [address] [id number] Nurse Practitioner Neurological Surgery 01/24/24 Dangelo Salinas MD [address] [place] [address] Neurology 01/27/24 Usha Simon APRN PRINT DEVELOPER [address] [address] Assigned Neuroscience Provider 02/06/24 03/07/24 Anastasia Stearns RN Lead Floor Service Worker [place] 02/06/24 documented as of this encounter
--- OUTSIDE RECORDS SUMMARY | 2024-05-07 18:47 | XMS_ITS | Encounter Summary ---
Author Organization [place] Address [address] [place] [address] Care Team Providers Care Telephone Cleaner Name Role Phone ShaunaWinston OD Unavailable [phone] Denise Woodson Ra, APRN BOX TOE STITCHER Unavailable [phone] Denise Woodson Ra, APRN BOX TOE STITCHER Primary Care Provid er Usha Simon APRN BOX TOE STITCHER Unavailable [phone] Dangelo Salinas MD Unavailable Usha Simon APRN BOX TOE STITCHER Unavailable [phone] Anastasia Stearns RN Unavailable [phone] Encounter Details Date Type Department Care Team [...] Description 06/08/2024 8:30 AM CDT Office Visit [facility] [place] [address] [place] [address] Dneise Woodson Ra, BARRERA BOX TOE STITCHER [address] [place] [address] documented as of this encounter Visit Diagnoses Not on filedocumented in this encounter Additional Health Concerns Assessment Noted Time PHQ-9 Depression Total Score: 16 024 3:27 PM CDT documented as of this encounter Care Teams Telephone Cleaner Relationship Specialty Start Date End Date Winston Villatoro OD [facility] [place] [address] [facility] [address] [place] [address] PCP - Ophthalmology Ophthalmology 02/11/13 Denise Woodson Ra, BARRERA BOX TOE STITCHER [address] [place] [address] PCP - General Family Practice 09/21/20 Denise Woodson Ra, APRN BOX TOE STITCHER [address] [place] [address] Assigned PCP 07/17/20 Usha Simon APRN BOX TOE STITCHER 909 [facility]121[place] [address] Nurse Practitioner Neurological Surgery 01/24/24 Dangelo Salinas MD [address] [place] [address] Neurology 01/27/24 Usha Simon APRN BOX TOE STITCHER 9 [facility] [address] Assigned Neuroscience Provider 02/06/24 03/07/24 Anastasia Stearns, RN Lead Bilingual Executive Assistant 02/06/24 documented as of this encounter
--- OUTSIDE RECORDS SUMMARY | 2024-05-07 18:47 | XMS_ITS | Encounter Summary ---
Author Organization [facility] Address [address] [place] [address] Care Team Providers Care Track Layer Name Role Phone Winston Villatoro OD Unavailable [phone] Denise Woodson Ra, APRN POSSUM TRAPPER Unavailable [phone]- [phone] Denise Woodson Ra FRUIT RECEIVER POSSUM TRAPPER Primary Care Provid er Usha Simon APRN POSSUM TRAPPER Unavailable [phone] Dangelo Salinas MD Unavailable Usha Simon APRN POSSUM TRAPPER Unavailable [phone] Anastasia Stearns RN Unavailable [phone] Germaine Lopez CHW Unavailable Reason for Visit * Rehab Therapy Integrated Services (Routine) - Authorized Specialty Diagnoses / Procedures Referred By Nila shah Referred To Contact Diagnoses Cerebrovascular accident (CVA), unspecified mechanism (H) [address] [address] Referral ID Status Reason Start Date Expiration Date V isits Requested Visits Authorized [id number] Authorized 09/16/2023 09/15/2024 365 365 Encounter Details Date Type Department Care Team (Late st Contact Info) Description 02/19/2024 3:00 PM CDT Therapy Visit [address] [address] Danya You, PA [address] [place] [address] [address] [place] [address] Isabel Beauleiu, JAIMIE MANISHA[address] [address] Cerebrovascular accident (CVA), unspecified mechanism (H) (Primary [...] Visit [facility] [address] [place] [address] Denise Woodson Ra, FRUIT RECEIVER [facility] [address] [place], [place] [address] documented as of this encounter Goals Goal [...] Mental Health weekly - PT, OT and GENETIC TECHNOLOGIST - PCP appointment 03/17/24 - Neurology [...] clinic with 08/04 after hours services available. Self Pay Collector will remain available as needed. documented as of this encounter Visit Diagnoses Diagnosis Cerebrovascular accident (CVA), unspecified mechanism (H)- Primary documented in this encounter Additional Health Concerns Active Problems Noted Date Diagnosed Date Increased risk of re-admission 02/18/2024 Assessment Noted Time PHQ-9 Depression Total Score: 16 024 3:27 PM CDT documented as of this encounter Care Teams Track Layer Relationship Specialty Start Date End Date Winston Villatoro OD [facility] [address] [facility] [address] [place] [address] PCP - Ophthalmology Ophthalmology 02/11/13 Denise Woodson Ra, APRN POSSUM TRAPPER [address] [place] [address] PCP - General Family Practice 09/21/20 Denise Woodson Ra, APRN POSSUM TRAPPER [address] [place] [address] Assigned PCP 07/17/20 Usha Simon APRN POSSUM TRAPPER 909 [facility] [address] Nurse Practitioner Neurological Surgery 01/24/24 Dangelo Salinas MD [address] [place] [address] Neurology 01/27/24 Usha Simon APRN POSSUM TRAPPER 909 [facility]121[place], [place] [address] Assigned Neuroscience Provider 02/06/24 03/07/24 Anastasia Stearns, RN Lead Self Pay Collector 02/06/24 Germaine Lopez, W Community Health Worker Primary Care - CC 02/18/24 documented as of this encounter
--- OUTSIDE RECORDS SUMMARY | 2024-05-07 18:47 | XMS_ITS | Encounter Summary ---
Author Organization [facility] Address [address] [place] [address] Care Team Providers Care Belting Inspector Name Role Phone Winston Villatoro OD Unavailable [phone] Denise Woodson Ra, APRN WOOD TOOL MAKER Unavailable + [phone] Denise Woodson Ra CAUL DRESSER WOOD TOOL MAKER Primary Care Provid er Usha Simon APRN WOOD TOOL MAKER Unavailable Dangelo Salinas MD Unavailable Usha Simon CAUL DRESSER WOOD TOOL MAKER Unavailable Anastasia Stearns RN Unavailable Germaine Lopez CHW Unavailable Reason for Referral * Consultation (Routine: Next available opening) - Pending Review Specialty Diagnoses / Procedures Referred By Nila shah Referred To Contact Diagnoses Flank pain Abdominal pain, epigastric Liliane Mcnair, PANilesC [address] [place] [address] [facility] [address] [facility] [address] [place] [address] Referral ID Status Reason Start Date Expiration Date V isits Requested Visits Authorized [id number] Pending Review 02/27/2024 02/26/2025 1 1 Question Answer Preferred Location: [facility] Acute & Diagnostic Services - [place] Service: Day of diagnosis - Future date Reason for Referral: Burning epigastric pain Comments A map of the location and driving directions are located near the end of this document. Reason for Visit * Reason Comments Abdominal Pain Right flank pain rad iate to back, across abd, Encounter Details Date Type Department Care Team (Late st Contact Info) Description 02/27/2024 3:00 PM CDT Office Visit [facility] [place] [address] [place] [address] Liliane Mcnair PA-C [address] [place] [address] Flank pain (Primary Dx); Abdominal pain, epigastric; Cerebrovascular accident (CVA), unspecified mechanism (H) Social History Tobacco Use Types Packs/Day Years Used Date Smoking Tobacco: Never Passive Smoke Exposure: Never Smokeless Tobacco: Never Tobacco Cessation:Counseling Given: [...] Never 02/28/2024 How often do you attend cheondoism or mandaen serv ices? Never 02/28/2024 Do you belong to any clubs o r organizations such as cheondoism groups, unions, fraternal or athletic groups, or [...] Answer Date Recorded PHQ-2 Score 4 02/12/2024 [facility] - Occupational Stress Questionnaire Answer [...] Sign Reading Time Taken Comments Blood Pressure 146/74 02/27/2024 2:42 PM CDT Pulse 86 02/27/2024 2:38 PM CDT Temperature 36.9 ??C (98.4 ??F) 02/27/2024 2:38 PM CD T Respiratory Rate 20 02/27/2024 2:38 PM CDT Oxygen Saturation 99% 02/27/2024 2:38 PM CDT Inhaled Oxygen Concentration - - Weight 97.1 kg (214 lb) 02/27/2024 2:38 PM CDT Height 174 cm (5' 8.5) 02/27/2024 2:38 PM CDT Body Mass Index 32.07 02/27/2024 2:38 PM CDT documented in this encounter Progress Notes * Liliane Mcnair PA-C - 02/27/2024 3:00 PM CDT Images from the original note were not included. Preventive Care Visit [facility] Liliane Mcnair PA-C, Physician Cyber Security Feb 27, 2024 Assessment & Plan Flank pain - UA Macroscopic with reflex to Microscopic and Culture - Clinic Collect - UA Microscopic with Reflex to Culture - Referral to Acute and Diagnostic Services (Day of diagnostic / First order acute); Future Abdominal pain, epigastric - Lipase; Future - CBC with platelets and differential; Future - Comprehensive metabolic panel (BMP + Alb, Alk Phos, ALT, AST, Total. Bili, TP); Future - Lipase - CBC with platelets and differential - Comprehensive metabolic panel (BMP + Alb, Alk Phos, ALT, AST, Total. Bili, TP) - Referral to Acute and Diagnostic Services (Day of diagnostic / First order acute); Future Cerebrovascular accident (CVA), unspecified mechanism (H) Patient is here today for epigastric burning pain for the last day. She has recently had significant medical changes and has a complex history of recent stroke after an scheduled angiogram. On exam she is processing information somewhat slowly, but she reports that is her baseline since the stroke and she is still recovering from brain fatigue. She has no neurological deficits or concerns today. She does have some abdominal burning and guarding and want to consider the abdominal aorta and othercauses of abdominal pain. I have advised that this patient be seen in the [facility] tomorrow for imaging,which she agrees. [facility] was notified and agree to see her tomorrow as well. Will consider other causes with lab work today. Patient was advised to seek immediate care in the ED sooner if her symptoms change or worsen in any way. Patient understands and agrees with the plan today. BMI Estimated body mass index is 32.07 kg/m?? as calculated from the following: Height as of this encounter: 1.74 m (5' 8.5). Weight as of this encounter: 97.1 kg (214 lb). Juan M Rondon is a 48 year old, presenting for the following: Abdominal Pain 02/27/2024 2:27 PM Additional Questions Roomed by Norma Yang CMA Accompanied by N/A 02/27/2024 2:27 PM Patient Reported Additional Medications Patient reports taking the following new medications N/A History of Present Illness Reason for visit: Burning epigastric pain that radiates to right flank Symptom onset: 1-3 days ago Symptoms include: Burning pain, sweating last night Symptom intensity: Moderate Symptom progression: Staying the same Had these symptoms before: No What makes it worse: Eating What makes it better: No She eats 4 or more servings of fruits and vegetables daily.She consumes 0 sweetened beverage(s) daily.She exercises with enough effort to increase her heart rate 10 to 19 minutes per day. She exercises with enough effort to increase her heart rate 3 or less days per week. She is taking medications regularly. Patient reports that she developed burning abdominal pain in the epigastrium yesterday in the evening that has been present and consistent ever since. Patient reports that she has recently been through a lot medically as she suffered a stroke after an angiogram this year. No data to display 07/27/2021 Nutrition Three or more servings of calcium each day? Yes Diet: regular (no restrictions) 07/27/2021 Exercise Frequency of exercise: None 07/27/2021 Dental Dentist two times every year? Yes Review of Systems Constitutional, neuro, ENT, endocrine, pulmonary, cardiac, gastrointestinal, genitourinary, musculoskeletal, integument and psychiatric systems are negative, except as otherwise noted. Objective Exam LMP 01/07/2006 Estimated body mass index is 31.97 kg/m?? as calculated from the following: Height as of 02/13/24: 1.753 m (5' 9). Weight as of 02/13/24: 98.2 kg (216 lb 7.9 oz). Physical Exam GENERAL: alert and no distress EYES: Eyes grossly normal to inspection, PERRL and conjunctivae and sclerae normal NECK: no adenopathy, no asymmetry, masses, or scars RESP: lungs clear to auscultation - no rales, rhonchi or wheezes CV: regular rate and rhythm, normal S1 S2, no S3 or S4, no murmur, click or rub, no peripheral edema ABDOMEN: Diffuse abdominal tenderness and guarding throughout the upper abdomen. MS: no gross musculoskeletal defects noted, no edema Signed Electronically by: Liliane Mcnair PA-C documented in this encounter Miscellaneous Notes * Result Encounter Note - Liliane Mcnair PA-C - 02/27/2024 3:00 PM CDT Aura Rondon , The results from your recent lab work do show some blood in the urine. This should be rechecked in about 1-2 weeks. Please be sure to followup in the lab to have this done. Please also be sure to seek more immediate care if your symptoms have not improved or changed in any way. Thank you for choosing [facility] for your health care needs, Liliane Mcnair PA-C documented in this encounter Plan of Treatment Upcoming Encounters Date Type Department Care Team (Late st Contact Info) Description 06/08/2024 8:30 AM CDT Office Visit [facility] [address] [place] [phone] Denise Woodson Ra, CAUL DRESSER [facility] [address] [place] [address] Scheduled Referrals Name Type Priority Associated Diagnoses Orde r Schedule Referral to Acute and Diagnostic Services (Day of diagnostic / First order acute) Referral Routine: Next available opening Flank pain Abdominal pain, epigastric Expected: 02/27/2024 (Approximate), Expires: 02/26/2025 documented as of this encounter Goals Goal [...] Mental Health weekly - PT, OT and BALLET MASTER/MISTRESS - PCP appointment 03/17/24 - Neurology 05/05/24, [...] with 24/7 after hours services available. Assistant At Surgery will remain available as needed. documented as of this encounter Procedures Procedure Name Priority Date/Time Associated Diagnosis Comments LIPASE Routine 02/27/2024 5:27 PM CDT Abdominal pain, epigastric COMPREHENSIVE METABOLIC PANEL Routine 02/27/2024 5:27 PM [...] Routine 02/27/2024 3:42 PM CDT Flank pain documented in this encounter Results * Comprehensive metabolic panel (BMP + Alb, Alk Phos, ALT, AST, Total. Bili, TP) (02/27/2024 5:27 PM CDT) Sodium 139 135 - 145 mmol/L 02/28/2024 8:32 PM CDT [facility] Comment:Reference intervals for this test were updated on 06/11/2023 to more accurately reflect our healthy population. There may be differences in the flagging of prior results with similar values performed with this method. Interpretation of those prior results can be made in the context of the updated reference intervals. Potassium 4.4 3.4 - 5.3 mmol/L 02/28/2024 8:32 PM CDT [facility] Carbon Dioxide (CO2) 25 22 - 29 mmol/L 02/28/2024 8:32 PM CDT [facility] Anion Gap 12 7 - 15 mmol/L 02/28/2024 8:32 PM CDT [facility] Urea Nitrogen 13.8 6.0 - 20.0 mg/dL 02/28/2024 8:32 PM CDT [facility] Creatinine 0.81 0.51 - 0.95 mg/dL 02/28/2024 8:32 PM CDT [facility] GFR Estimate 90 >60 mL/min/1. 73m2 02/28/2024 8:32 PM CDT [facility] Comment:eGFR calculated usin 2020 CKD-EPI equation. Calcium 9.9 8.6 - 10.0 mg/dL 02/28/2024 8:32 PM CDT [facility] Chloride 102 98 - 107 mmol/L 02/28/2024 8:32 PM CDT [facility] Glucose 81 70 - 99 mg/dL 02/28/2024 8:32 PM CDT [facility] Alkaline Phosphatase 79 40 - 150 U/L 02/28/2024 8:32 PM CDT [facility] AST 24 0 - 45 U/L 02/28/2024 8:32 PM CDT [facility] Comment:Reference intervals for this test were updated on 02/25/2023 to more accurately reflect our healthy population. There may be differences in the flagging of prior results with similar values performed with this method. Interpretation of those prior results can be made in the context of the updated reference intervals. ALT 16 0 - 50 U/L 02/28/2024 8:32 PM CDT [facility] Comment:Reference intervals for this test were updated on 02/25/2023 to more accurately reflect our healthy population. There may be differences in the flagging of prior results with similar values performed with this method. Interpretation of those prior results can be made in the context of the updated reference intervals. Protein Total 7.5 6.4 - 8.3 g/dL 02/28/2024 8:32 PM CDT [facility] Albumin 4.4 3.5 - 5.2 g/dL 02/28/2024 8:32 PM CDT [facility] Bilirubin Total 0.8 <=1.2 mg/dL 02/28/2024 8:32 PM CDT [facility] Blood BLOOD SPECIMEN / Unknown Venipuncture / Unknown 02/27/2024 5:27 PM CDT 02/27/2024 5:27 PM CDT Liliane Mcnair PA-C LAB - BLOOD ORDER NASRIN [facility] [place] [facility] [address] [facility], [address] [address] * Lipase (02/27/2024 5:27 PM CDT) Lipase 24 13 - 60 U/L 02/28/2024 8:32 PM CDT [facility] Blood BLOOD SPECIMEN / Unknown Venipuncture / Unknown 02/27/2024 5:27 PM CDT 02/27/2024 5:27 PM CDT Liliane Mcnair PA-C LAB - BLOOD ORDER NASRIN [facility] [place] [facility] [address] [facility], [address] [place] [address], [facility] * CBC with platelets and differential (02/27/2024 5:26 PM CDT) [facility] WBC Count 9.0 4.0 - 11.0 10e3/uL 02/27/2024 5:29 PM CDT [facility] RBC Count 4.71 3.80 - 5.20 10e6/uL 02/27/2024 5:29 PM CDT [facility] Hemoglobin 14.6 11.7 - 15.7 g/dL 02/27/2024 5:29 PM CDT [facility] Hematocrit 43.9 35.0 - 47.0 % 02/27/2024 5:29 PM CDT [facility] MCV 93 78 - 100 fL 02/27/2024 5:29 PM CDT [facility] MCH 31.0 26.5 - 33.0 pg 02/27/2024 5:29 PM CDT [facility] MCHC 33.3 31.5 - 36.5 g/dL 02/27/2024 5:29 PM CDT [facility] RDW 12.3 10.0 - 15.0 % 02/27/2024 5:29 PM CDT [facility] Platelet Count 201 150 - 450 10e3/uL 02/27/2024 5:29 PM CDT [facility] % Neutrophils 67 % 02/27/2024 5:29 PM CDT [facility] % Lymphocytes 24 % 02/27/2024 5:29 PM CDT [facility] % Monocytes 5 % 02/27/2024 5:29 PM CDT [facility] % Eosinophils 4 % 02/27/2024 5:29 PM CDT [facility] % Basophils 0 % 02/27/2024 5:29 PM CDT [facility] % Immature Granulocytes 0 % 02/27/2024 5:29 PM CDT [facility] Absolute Neutrophils 6.1 1.6 - 8.3 10e3/uL 02/27/2024 5:29 PM CDT [facility] Absolute Lymphocytes 2.1 0.8 - 5.3 10e3/uL 02/27/2024 5:29 PM CDT [facility] Absolute Monocytes 0.4 0.0 - 1.3 10e3/uL 02/27/2024 5:29 PM CDT [facility] Absolute Eosinophils 0.4 0.0 - 0.7 10e3/uL 02/27/2024 5:29 PM CDT [facility] Absolute Basophils 0.0 0.0 - 0.2 10e3/uL 02/27/2024 5:29 PM CDT [facility] Absolute Immature Granulocytes 0.0 <=0.4 10e3/uL 02/27/2024 5:29 PM CDT [facility] Blood BLOOD SPECIMEN / Unknown Venipuncture / Unknown 02/27/2024 5:26 PM CDT 02/27/2024 5:26 PM CDT Liliane Mcnair PA-C LAB - BLOOD ORDER NASRIN [facility] [place] [address] [place] [address] [address] [place] [address], [facility] [phone] * (ABNORMAL) UA Microscopic with Reflex to [...] LAB - URINE ORDER NASRIN [facility] [place] [address] [place] [address] [address] [place] [address], [facility] [phone] * (ABNORMAL) UA Macroscopic with reflex to Microscopic and Culture - Clinic Collect (02/27/2024 3:42 PM CDT) Color Urine Yellow Colorless, Straw, Light Yellow, Yellow 02/27/2024 3:52 PM CDT [facility] Appearance Urine Clear Clear 02/27/20 3:52 PM CDT [facility] Glucose Urine Negative Negative mg/dL 02/27/2024 3:52 PM CDT [facility] Bilirubin Urine Negative Negative 3:52 PM CDT [facility] Ketones Urine Negative Negative mg/dL 02/27/2024 3:52 PM CDT [facility] Specific [place] Urine 1.025 1.003 - 1.035 02/27/2024 3:52 [...] LAB - URINE ORDER NASRIN [facility] [place] [facility] [address] [facility] [address] [place] [address], [facility] [phone] documented in this encounter Visit Diagnoses Diagnosis Flank pain- Primary Abdominal pain, unspecified site Abdominal pain, epigastric Cerebrovascular accident (CVA), unspecified mechanism (H) documented in this encounter Additional Health Concerns Active Problems Noted Date Diagnosed Date Increased risk of re-admission 02/18/2024 Assessment Noted Time PHQ-9 Depression Total Score: 16 024 3:27 PM CDT documented as of this encounter Care Teams Belting Inspector Relationship Specialty Start Date End Date Winston Villatoro OD [facility] [place] [address] [place] [address] PCP - Ophthalmology Ophthalmology 02/11/13 Denise Woodson Ra, APRN WOOD TOOL MAKER [address] [place] [address] PCP - General Family Practice 09/21/20 Denise Woodson Ra, APRN WOOD TOOL MAKER [address] [place] [address] Assigned PCP 07/17/20 Usha Simon APRN WOOD TOOL MAKER [address] [place] [address] Nurse Practitioner Neurological Surgery 01/24/24 Dangelo [facility] MD [address] [place] [address] Neurology 01/27/24 Usha Simon APRN WOOD TOOL MAKER [address] [place] [address] Assigned Neuroscience Provider 02/06/24 03/07/24 Anastasia Stearns, RN Lead Assistant At Surgery 02/06/24 Germaine Lopez, CHW Community Health Worker Primary Care - CC 02/18/24 documented as of this encounter
--- OUTSIDE RECORDS SUMMARY | 2024-05-07 18:47 | XMS_ITS | Encounter Summary ---
Author Organization [facility] Address [address] [place] [address]. [place] [address] Care Team Providers Care Networking Engineer Name Role Phone Winston Villatoro OD Unavailable [phone] Denise Woodson Ra, APRN WICKER MOLDED CANDLES Unavailable [phone]- [phone] Denise Woodson Ra TELEPHONE SERVICES SALES REPRESENTATIVE W[employer] MOLD[employer] CANDLES Primary Care Provid er Usha Simon APRN WICKER MOLDED CANDLES Unavailable [phone] Dangelo [facility] MD Unavailable Usha Simon APRN WICKER MOLDED CANDLES Unavailable [phone] Anastasia Stearns RN Unavailable [phone] Reason for Visit * Rehab Therapy Integrated Services (Routine) - Authorized Specialty Diagnoses / Procedures Referred By Contac t Referred To Contact Diagnoses Cerebrovascular accident (CVA), unspecified mechanism (H) [address] [address] Referral ID Status Reason Start Date Expiration Date V isits Requested Visits Authorized [id number] Authorized 09/16/2023 09/15/2024 365 365 Encounter Details Date Type Department Care Team (Latest Contact Info) Description 02/14/2024 2:45 PM CDT Therapy Visit [address] [phone] Danya You, AMAIRANI [address] [place] [address] PatiaubriesalmaBusterMaria Eugenia J, PT [address] [place] [address] Cerebrovascular accident (CVA), unspecified mechanism (H) (Primary [...] Description 06/08/2024 8:30 AM CDT Office Visit [facility] [address] [place] [phone] Denise Woodson Ra, TELEPHONE SERVICES SALES REPRESENTATIVE [employer] [address] [place] [address] documented as of this encounter Visit Diagnoses Diagnosis Cerebrovascular accident (CVA), unspecified mechanism (H)- Primary documented in this encounter Additional Health Concerns Assessment Noted Time PHQ-9 Depression Total Score: 16 024 3:27 PM CDT documented as of this encounter Care Teams Networking Engineer Relationship Specialty Start Date End Date Winston Villatoro OD [facility] [place] [address] [place] [address] PCP - Ophthalmology Ophthalmology 02/11/13 Denise Woodson Ra, APRN WICKER MOLDED CANDLES [address] [place] [id number] PCP - General Family Practice 09/21/20 Denise oWodson Ra, APRN WICKER MOLDED CANDLES [address] [address] [place] [address] Assigned PCP 07/17/20 Usha Simon APRN WICKER MOLDED CANDLES [address] [address] Nurse Practitioner Neurological Surgery 01/24/24 Dangelo [facility] MD [address] [place], [place] [id number] Neurology 01/27/24 Usha Simon APRN WICKER MOLDED CANDLES [address] [address] Assigned Neuroscience Provider 02/06/24 03/07/24 Anastasia Stearns, RN Lead Medical Records Clerk 02/06/24 documented as of this encounter
--- OUTSIDE RECORDS SUMMARY | 2024-05-07 18:47 | XMS_ITS | Encounter Summary ---
Author Organization [facility] Address [address] [place] [address]. [place] [address] Care Team Providers Care Mat Puncher Name Role Phone Winston Villatoro OD Unavailable [phone] Denise Woodson Ra, APRN EARRINGS FABRICATOR Unavailable + [phone] Denise Woodson Ra, APRN EARRINGS FABRICATOR Primary Care Provid er Usha Simon APRN EARRINGS FABRICATOR Unavailable + [phone] Dangelo [facility] MD Unavailable Usha Simon APRN EARRINGS FABRICATOR Unavailable + [phone] Anastasia Stearns RN Unavailable [phone] Encounter Details Date Type Department Care Team (Late st Contact Info) Description 02/14/2024 [facility] [address] [place] [address] Denise Woodson Ra, APRN EARRINGS FABRICATOR [address] [place] [address] Social History Tobacco Use Types [...] AM CDT Office Visit [facility] [address] [place] [address] Denise Woodson Ra, BARRERA EARRINGS FABRICATOR [address] [place] [address] documented as of this encounter Visit Diagnoses Not on filedocumented in this encounter Additional Health Concerns Assessment Noted Time PHQ-9 Depression Total Score: 16 024 3:27 PM CDT documented as of this encounter Care Teams Mat Puncher Relationship Specialty Start Date End Date Winston Villatoro OD [facility] [place] [address] [facility] [address] [place] [address] PCP - Ophthalmology Ophthalmology 02/11/13 Denise Woodson Ra, APRN EARRINGS FABRICATOR [address] [place] [address] PCP - General Family Practice 09/21/20 Denise Woodson Ra, APRN EARRINGS FABRICATOR [address] [place] [address] Assigned PCP 07/17/20 Usha Simon APRN EARRINGS FABRICATOR [address] [place] [address] [address] Nurse Practitioner Neurological Surgery 01/24/24 Dangelo [facility] MD [address] [place] [address] Neurology 01/27/24 Usha Simon APRN EARRINGS FABRICATOR [address] [facility], [place] [address] Assigned Neuroscience Provider 02/06/24 03/07/24 Anastasia Stearns, RN Lead Industrial Nurse 02/06/24 documented as of this encounter
--- OUTSIDE RECORDS SUMMARY | 2024-05-07 18:47 | XMS_ITS | Encounter Summary ---
Author Organization [facility] Address [address] [place] [address]. [place] [address] Care Team Providers Care Glove Finisher Name Role Phone Winston Villatoro OD Unavailable [phone] Denise Woodson Ra, APRN GI TECHNICIAN Unavailable [phone] Denise Woodson Ra PYROTECHNICIAN GI TECHNICIAN Primary Care Provid er Usha Simon APRN GI TECHNICIAN Unavailable [phone] Dangelo [facility] MD Unavailable Usha Simon APRN GI TECHNICIAN Unavailable [phone] Anastasia Stearns RN Unavailable [phone] Reason for Visit * Rehab Therapy Integrated Services (Routine) - Authorized Specialty Diagnoses / Procedures Referred By Contac t Referred To Contact Diagnoses Cerebrovascular accident (CVA), unspecified mechanism (H) [address] [address] Referral ID Status Reason Start Date Expiration Date V isits Requested Visits Authorized [id number] Authorized 09/16/2023 09/15/2024 365 365 Encounter Details Date Type Department Care Team (Late st Contact Info) Description 02/14/2024 12:45 PM CDT Therapy Visit [address] [phone] Danya You, AMAIRANI [address] [place] [address] Isabel Beaulieu, OTR FV [address] [address] Cerebrovascular accident (CVA), unspecified mechanism (H) (Primary [...] Description 06/08/2024 8:30 AM CDT Office Visit [facility] [address] [place] [address] Denise Woodson Ra, PYROTECHNICIAN [facility] [address] [place] [address] documented as of this encounter Visit Diagnoses Diagnosis Cerebrovascular accident (CVA), unspecified mechanism (H)- Primary documented in this encounter Additional Health Concerns Assessment Noted Time PHQ-9 Depression Total Score: 16 024 3:27 PM CDT documented as of this encounter Care Teams Glove Finisher Relationship Specialty Start Date End Date Winston Villatoro OD [facility] [place] [address] [facility] [address] [place], [place] [phone] PCP - Ophthalmology Ophthalmology 02/11/13 Denise Woodson Ra, APRN GI TECHNICIAN [address] [address] [place], [place] [phone] PCP - General Family Practice 09/21/20 Denise Woodson Ra, APRN GI TECHNICIAN [address] [place] [address] Assigned PCP 07/17/20 Usha Simon APRN GI TECHNICIAN [address] [id number] Nurse Practitioner Neurological Surgery 01/24/24 Dangelo [facility] MD [address] [place] [address] Neurology 01/27/24 Usha Simon APRN GI TECHNICIAN [address] [id number] Assigned Neuroscience Provider 02/06/24 03/07/24 Anastasia Stearns RN Lead Experimental Aircraft Mechanic 02/06/24 documented as of this encounter
--- OUTSIDE RECORDS SUMMARY | 2024-05-07 18:47 | XMS_ITS | Encounter Summary ---
Author Organization [facility] Address [address] [place] [address]. [place] [address] Care Team Providers Care Marine Designer Name Role Phone Winston Villatoro OD Unavailable [phone] Denise Woodson Ra, APRN TUBE TRAILER FILLER Unavailable +- [phone] Denise Woodson Ra PLANETARIUM TECHNICIAN TUBE TRAILER FILLER Primary Care Provid er Usha Simon APRN TUBE TRAILER FILLER Unavailable [phone] Dangelo Salinas MD Unavailable Usha Simon APRN TUBE TRAILER FILLER Unavailable +[phone] Anastasia Stearns RN Unavailable [phone] Reason for Visit * Rehab Therapy Integrated Services (Routine) - Authorized Specialty Diagnoses / Procedures Referred By Contac t Referred To Contact Diagnoses Cerebrovascular accident (CVA), unspecified mechanism (H) [address] [address] Referral ID Status Reason Start Date Expiration Date V isits Requested Visits Authorized [id number] Authorized 09/16/2023 09/15/2024 365 365 Encounter Details Date Type Department Care Team (Latest Contact Info) Description 02/17/2024 2:45 PM CDT Therapy Visit [address] [id number] Danya You, AMAIRANI [address] [place] [address] Aliya Kim, HUMAN CAPITAL CONSULTANT [address] [facility], [address] [place] [address] Cerebrovascular accident (CVA), unspecified mechanism (H) (Primary [...] Description 06/08/2024 8:30 AM CDT Office Visit [facility] [address] [place] [address] Denise Woodson Ra, PLANETARIUM TECHNICIAN TUBE TRAILER FILLER [address] [place] [address] documented as of this encounter Visit Diagnoses Diagnosis Cerebrovascular accident (CVA), unspecified mechanism (H)- Primary Cognitive communication deficit documented in this encounter Additional Health Concerns Assessment Noted Time PHQ-9 Depression Total Score: 16 024 3:27 PM CDT documented as of this encounter Care Teams Marine Designer Relationship Specialty Start Date End Date Winston Villatoro OD [facility] [place] [address] [facility] [address] [place], [place] [id number] PCP - Ophthalmology Ophthalmology 02/11/13 Denise Woodson Ra, APRN TUBE TRAILER FILLER [address] [place] [address] PCP - General Family Practice 09/21/20 Denise Woodson Ra, APRN TUBE TRAILER FILLER [address] [place] [address] Assigned PCP 07/17/20 Usha Simon APRN TUBE TRAILER FILLER [address] [address] Nurse Practitioner Neurological Surgery 01/24/24 Dangelo Salinas MD [address] [place] [address] Neurology 01/27/24 Usha Simon APRN TUBE TRAILER FILLER [address] [address] Assigned Neuroscience Provider 02/06/24 03/07/24 Anastasia Stearns RN Lead Underground Electrician 02/06/24 documented as of this encounter
--- OUTSIDE RECORDS SUMMARY | 2024-05-07 18:47 | XMS_ITS | Encounter Summary ---
Author Organization [facility] Address [address] [place] [address] Care Team Providers Care Kitchen Lead Name Role Phone ShaunaWinston OD Unavailable [phone] Denise Woodson Ra, APRN SEARCH ENGINE MARKETING MANAGER Unavailable [phone] Denise Woodson Ra, APRN SEARCH ENGINE MARKETING MANAGER Primary Care Provid er Usha Simon APRN SEARCH ENGINE MARKETING MANAGER Unavailable [phone] Dangelo Salinas MD Unavailable Usha Simon APRN SEARCH ENGINE MARKETING MANAGER Unavailable +[phone]- [phone] Anastasia Stearns RN Unavailable [phone] Encounter Details Date Type Department Care Team [...] AM CDT Office Visit [facility] [place] [address] [place] [place] [address] Denise Woodson Ra, BARRERA SEARCH ENGINE MARKETING MANAGER [address] [place] [address] documented as of this encounter Visit Diagnoses Not on filedocumented in this encounter Additional Health Concerns Assessment Noted Time PHQ-9 Depression Total Score: 16 024 3:27 PM CDT documented as of this encounter Care Teams Kitchen Lead Relationship Specialty Start Date End Date Winston Villatoro OD [facility] [place] 701 [facility] [address] [place] [address] PCP - Ophthalmology Ophthalmology 02/11/13 Denise Woodson Ra, BARRERA SEARCH ENGINE MARKETING MANAGER [address] [place] [address] PCP - General Family Practice 09/21/20 Denise Woodson Ra, APRN SEARCH ENGINE MARKETING MANAGER [address] [place] [address] Assigned PCP 07/17/20 Usah Simon APRN SEARCH ENGINE MARKETING MANAGER 909 [facility] [address] Nurse Practitioner Neurological Surgery 01/24/24 Dangelo Salinas MD [address] [place] [address] Neurology 01/27/24 Usha Simon APRN SEARCH ENGINE MARKETING MANAGER 9 [facility]121[place], [place] [address] Assigned Neuroscience Provider 02/06/24 03/07/24 Anastasia Stearns, RN Lead Reimbursement Specialist 02/06/24 documented as of this encounter
--- OUTSIDE RECORDS SUMMARY | 2024-05-07 18:47 | XMS_ITS | Encounter Summary ---
Author Organization [facility] Address [address] [place] [address]. [place] [address] Care Team Providers Care Credentials Specialist Name Role Phone Winston Villatoro OD Unavailable [phone] Denise Woodson Ra, APRN CUSTOMS ENTRY CLERK Unavailable +- [phone] Denise Woodson Ra, APRN CUSTOMS ENTRY CLERK Primary Care Provid er Usha Simon APRN CUSTOMS ENTRY CLERK Unavailable +- [phone] Dangelo Salinas MD Unavailable Usha Simon APRN CUSTOMS ENTRY CLERK Unavailable +- [phone] Anastasia Stearns RN Unavailable [phone] Reason for Visit * Reason Comments Video Visit Dural AVF Encounter Details Date Type Department Care Team (Latest Contact Info) Description 02/12/2024 3:40 PM CDT Virtual Visit [facility]surgery [facility] [address] [place] [address] Robin Zepeda MD [address] [place] [address] [id number] [address] Dural arteriovenous fistula (Primary Dx) [...] person or virtual. Call Wendy RIBEIRO Neurosurgery Supervisor Cellars with questions/concerns [phone] Thank you for using [employer] documented in this encounter Progress Notes * Robin Zepeda MD - 02/12/2024 3:40 PM CDT Virtual Visit Details Type of service: Phone Visit I the pleasure to talk to Jose today by telephone. She gave consent for this visit. Briefly Jose is a 48-year-old woman who lives in [place]. 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 Sheis lived in [place] for the last 4 years. Her had grown up there and graduated from [employer] from high school. She was in her normal state of health until about 3 months ago. At that time she felt that she could hear her heartbeat through her ear while sleeping. 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 This then prompted a cerebral angiogram at [facility]. This was done by Dr. Gutierrez. The [...] the patient currently in the state of [place]? YES Visit mode:VIDEO If the visit is dropped, the patient can be reconnected by: TELEPHONE VISIT: Phone number: Telephone Information: Will anyone else be joining the visit? NO (If patient encounters technical issues they should call [phone]) How would you like to obtain [...] Description 06/08/2024 8:30 AM CDT Office Visit [facility] [address] [place] [address] Denise Woodson Ra, APRN CUSTOMS ENTRY CLERK [address] [place] [address] documented as of this encounter Visit Diagnoses Diagnosis Dural arteriovenous fistula- Primary Cerebral aneurysm, nonruptured documented in this encounter Additional Health Concerns Assessment Noted Time PHQ-9 Depression Total Score: 16 024 3:27 PM CDT documented as of this encounter Care Teams Credentials Specialist Relationship Specialty Start Date End Date Winston Villatoro OD [facility] [place] 701 [facility] [address] [place] [address] PCP - Ophthalmology Ophthalmology 02/11/13 Denise Woodson Ra, APRN CUSTOMS ENTRY CLERK [address] [place] [address] PCP - General Family Practice 09/21/20 Denise Woodson Ra, APRN CUSTOMS ENTRY CLERK [address] [place] [address] Assigned PCP 07/17/20 Usha Simon APRN CUSTOMS ENTRY CLERK 909 [facility] [id number] [address] Nurse Practitioner Neurological Surgery 01/24/24 Dangelo Salinas MD [address] [place] [address] Neurology 01/27/24 Usha Simon APRN CUSTOMS ENTRY CLERK 9 [facility]121[place] [address] Assigned Neuroscience Provider 02/06/24 03/07/24 Anastasia Stearns, RN Lead Supervisor Cellars 02/06/24 documented as of this encounter
--- OUTSIDE RECORDS SUMMARY | 2024-05-07 18:47 | XMS_ITS | Encounter Summary ---
Author Organization [facility] Address [address] [place] [address] Care Team Providers Care Taxation Consultant Name Role Phone Winston Villatoro OD Unavailable [phone] Denise Woodson Ra, APRN PROCESSING SUPERVISOR Unavailable + [phone] Denise Woodson Ra REPORTING COORDINATOR PROCESSING SUPERVISOR Primary Care Provid er Usha Simon APRN PROCESSING SUPERVISOR Unavailable + [phone] Dangelo Salinas MD Unavailable Usha Simon APRN PROCESSING SUPERVISOR Unavailable + [phone] Anastasia Stearns RN Unavailable [phone] Encounter Details Date Type Department Care Team (Late st Contact Info) Description 02/12/2024 [facility] Neurosurgery Clinic [address] [place] [address] Robin Zepeda MD [address] [place], [place] [address], [place] [address] Social History Tobacco Use Types Packs/Day Years [...] [facility] [address] [place] [address] Denise Woodson Ra, REPORTING COORDINATOR PROCESSING SUPERVISOR [address] [place], [place] [address] documented as of this encounter Visit Diagnoses Not on filedocumented in this encounter Additional Health Concerns Assessment Noted Time PHQ-9 Depression Total Score: 16 024 3:27 PM CDT documented as of this encounter Care Teams Taxation Consultant Relationship Specialty Start Date End Date Winston Villatoro OD [facility] [place] [address] [place] [address] PCP - Ophthalmology Ophthalmology 02/11/13 Denise Woodson Ra, REPORTING COORDINATOR PROCESSING SUPERVISOR [address] [place], [place] [address] PCP - General Family Practice 09/21/20 Denise Woodson Ra, APRN PROCESSING SUPERVISOR [address] [facility] [place] [address] Assigned PCP 07/17/20 Usha Simon APRN PROCESSING SUPERVISOR [address]09 [place] [address], [place] [address] Nurse Practitioner Neurological Surgery 01/24/24 Dangelo Salinas MD [address] [place] [address] Neurology 01/27/24 Usha Simon APRN PROCESSING SUPERVISOR [address] [address] Assigned Neuroscience Provider 02/06/24 03/07/24 Anastasia Stearns, RN Lead Wire Splicer 02/06/24 documented as of this encounter
--- OUTSIDE RECORDS SUMMARY | 2024-05-07 18:48 | XMS_ITS | Encounter Summary ---
Author Organization [facility] Address [address] [place] [address]. [place] [address] Care Team Providers Care Public Health Nutritionist Name Role Phone Winston Villatoro OD Unavailable [phone] Denise Woodson Ra, APRN AGRICULTURAL CONSULTANT Unavailable + [phone] Denise Woodson Ra, APRN AGRICULTURAL CONSULTANT Primary Care Provid er Usha Simon APRN AGRICULTURAL CONSULTANT Unavailable + [phone] Dangelo Salinas MD Unavailable Usha Simon APRN AGRICULTURAL CONSULTANT Unavailable + [phone] Anastasia Stearns RN Unavailable [phone] Encounter Details Date Type Department Care Team (Late st Contact Info) Description 02/06/2024 [facility] Medical Advice [facility] [address] [place] [address] Denise Woodson Ra, APRN AGRICULTURAL CONSULTANT [address] [place] [address] H/O prolonged Q-T interval on [...] 8:44 AM CDT Scheduled. Qing Copeland Lead Education Counselor [facility] * Telephone Encounter - Leslie Mcclellan RN - 02/06/2024 12:51 PM CDT Please see [facility] and advise. Leslie Mcclellan RN, BSN [facility] documented in this encounter Plan of Treatment Upcoming Encounters Date Type Department Care Team (Late st Contact Info) Description 06/08/2024 8:30 AM CDT Office Visit [facility] [address] [place] [address] Denise Woodson Ra, COUNSELING PSYCHOLOGIST AGRICULTURAL CONSULTANT [address] [place] [address] documented as of this encounter Visit Diagnoses Diagnosis H/O prolonged Q-T interval on ECG- Primary Personal history of other diseases of circulatory system documented in this encounter Additional Health Concerns Assessment Noted Time PHQ-9 Depression Total Score: 14 024 9:33 AM CDT documented as of this encounter Care Teams Public Health Nutritionist Relationship Specialty Start Date End Date Winston Villatoro OD [facility] [place] [address] [place] [address] PCP - Ophthalmology Ophthalmology 02/11/13 Denise Woodson Ra, APRN AGRICULTURAL CONSULTANT [address] [place] [address] PCP - General Family Practice 09/21/20 Denise Woodson Ra, APRN AGRICULTURAL CONSULTANT [address] [place] [address] Assigned PCP 07/17/20 Usha Simon APRN AGRICULTURAL CONSULTANT [address] [address] Nurse Practitioner Neurological Surgery 01/24/24 Dangelo Salinas MD [address] [place] [address] Neurology 01/27/24 Usha Simon APRN AGRICULTURAL CONSULTANT [address] [address] Assigned Neuroscience Provider 02/06/24 03/07/24 Anastasia Stearns RN Lead Vat Tender 02/06/24 documented as of this encounter
--- OUTSIDE RECORDS SUMMARY | 2024-05-07 18:48 | XMS_ITS | Encounter Summary ---
Author Organization [facility] Address [address] [place] [address] Care Team Providers Care Video And Sound Recorder Name Role Phone Winston Villatoro OD Unavailable [phone] Denise Woodson Ra, APRN ACTUARIAL ANALYST Unavailable + [phone] Denise Woodson Ra, APRN ACTUARIAL ANALYST Primary Care Provid er Usha Simon APRN ACTUARIAL ANALYST Unavailable + [phone] Dangelo Salinas MD Unavailable Reason for Visit * Reason Onset Date Comments *-*INCOMING RECORDS*-* 02/04/2024 Encounter Details Date Type Department Care Team (Late st Contact Info) Description 02/04/2024 PRE VISIT [facility] Neurology Clinic [address] [place] [address] Raul Hoyos MD [address] [place], [place] [address], [place] [address] *-*INCOMING RECORDS*-* Social History Tobacco Use Types [...] Action Taken 1) Imaging request emailed to [facility] 2) Request faxed to [facility] and imaging reports. Images already in PACS Action 01/30/24 MV 10.10am Action Taken Recs received from [facility] and sent to scanning ; still need [facility] images Action 01/31/24 MV 8am Action Taken Images resolved in PACS RECORDS RECEIVED FROM: internal REASON FOR VISIT: Cerebrovascular accident (CVA) PROVIDER: Dr. Hoyos DATE OF APPT: 02/04/24 NOTES (FOR ALL VISITS) STATUS DETAILS OFFICE NOTE from referring provider Internal SEE INPATIENT NOTES OFFICE NOTE from other specialist Care Everywhere Dr Bette Mantilla @ [facility] Neurosurgery: 01/15/24 01/14/24 Dr Roshni Molina @ [facility] Neurosurgery: 01/14/24 DISCHARGE SUMMARY from hospital Internal/Received [facility]: 01/22/24-01/26/24 01/19/24-01/22/24 [facility]: 01/04/24-01/14/24 [facility]: 09/30/22-10/02/22 DISCHARGE REPORT from the ER Care Everywhere [facility]: 09/28/22 09/27/22 09/25/22 MEDICATION LIST Internal IMAGING (FOR ALL VISITS) ULTRASOUND (CAROTID BILAT) *VASCULAR* PACS [facility]: IR Angio Carotid 01/09/24 MRI (HEAD, NECK, SPINE) PACS [facility]: MRA Neck Carotid 01/20/24 MRI Brain 01/20/24 MRA Brain COW 01/20/24 [facility]: MRI Brain 01/13/24 [facility]: MRI Brain 09/28/22 MRI Brain 06/30/14 CT (HEAD, NECK, SPINE) PACS [facility]: CT Head 01/19/24 [facility]: CT Head 01/14/24 CTA Neck 01/13/24 CT Head 01/07/24 CTA Neck 01/04/24 CT Head 01/04/24 [facility]: CTA Head Neck Carotid 01/09/24 [facility]: CTA Head Neck 09/27/22 CT Head 09/25/22 CT Head 06/29/14 documented in this encounter Plan of Treatment Upcoming Encounters Date Type Department Care Team (Late st Contact Info) Description 06/08/2024 8:30 AM CDT Office Visit [facility] [place] [address] [address] [place] [address] Denise Woodson Ra, OSTEOLOGIST ACTUARIAL ANALYST [address] [place] [address] documented as of this encounter Visit Diagnoses Not on filedocumented in this encounter Additional Health Concerns Assessment Noted Time PHQ-9 Depression Total Score: 15 024 10:47 AM CDT documented as of this encounter Care Teams Video And Sound Recorder Relationship Specialty Start Date End Date Winston Villatoro OD [facility] [place] [address] [facility] [address] [place] [address] PCP - Ophthalmology Ophthalmology 02/11/13 Denise Woodson Ra, OSTEOLOGIST ACTUARIAL ANALYST [address] [place] [address] PCP - General Family Practice 09/21/20 Denise Woodson Ra, APRN ACTUARIAL ANALYST [address] [place] [address] Assigned PCP 07/17/20 Usha Simon APRN ACTUARIAL ANALYST 909 [facility]121[place] [address] Nurse Practitioner Neurological Surgery 01/24/24 Dangelo Salinas MD [address] [place] [address] Neurology 01/27/24 documented as of this encounter
--- OUTSIDE RECORDS SUMMARY | 2024-05-07 18:48 | XMS_ITS | Encounter Summary ---
Author Organization [facility] Address [address] [place] [address]. [place] [address] Care Team Providers Care Freight Manager Name Role Phone Winston Villatoro OD Unavailable [phone] Denise Woodson Ra, APRN FOOD BEVERAGE SERVER Unavailable [phone] Denise Woodson Ra, APRN FOOD BEVERAGE SERVER Primary Care Provid er Usha Simon APRN FOOD BEVERAGE SERVER Unavailable +[phone] Dangelo Salinas MD Unavailable Encounter Details Date [...] 06/08/2024 8:30 AM CDT Office Visit [facility] [place] [address] [place] [address] Denise Woodson Ra, APRN FOOD BEVERAGE SERVER [address] [place] [address] documented as of this encounter Visit Diagnoses Not on filedocumented in this encounter Additional Health Concerns Assessment Noted Time PHQ-9 Depression Total Score: 14 024 9:33 AM CDT documented as of this encounter Care Teams Freight Manager Relationship Specialty Start Date End Date Winston Villatoro OD [facility] [place] [address] [place] [address] PCP - Ophthalmology Ophthalmology 02/11/13 Denise Woodson Ra, APRN FOOD BEVERAGE SERVER [address] [place] [address] PCP - General Family Practice 09/21/20 Denise Woodson Ra, APRN FOOD BEVERAGE SERVER [address] [place] [address] Assigned PCP 07/17/20 Usha Simon APRN FOOD BEVERAGE SERVER 909 [facility] [id number] [place] [address] Nurse Practitioner Neurological Surgery 01/24/24 Dangelo Salinas MD [address] [place] [address] Neurology 01/27/24 documented as of this encounter
--- OUTSIDE RECORDS SUMMARY | 2024-05-07 18:48 | XMS_ITS | Encounter Summary ---
Author Organization [facility] Address [address] [place] [address]. [place] [address] Care Team Providers Care Director Of Payroll Name Role Phone Winston Villatoro Se OD Unavailable [phone] Denise Woodson Ra, APRN SORTER LUMBER STRAIGHTENER Unavailable + [phone] Denise Woodson Ra, APRN SORTER LUMBER STRAIGHTENER Primary Care Provid er Usha Simon APRN SORTER LUMBER STRAIGHTENER Unavailable + [phone] Dangelo Salinas MD Unavailable Encounter Details Date [...] Description 06/08/2024 8:30 AM CDT Office Visit [facility] [address] [place] [address] Denise Woodson Ra, APRN SORTER LUMBER STRAIGHTENER [address] [place] [address] documented as of this encounter Visit Diagnoses Not on filedocumented in this encounter Additional Health Concerns Assessment Noted Time PHQ-9 Depression Total Score: 0 06/23/20 21 4:11 PM CDT documented as of this encounter Care Teams Director Of Payroll Relationship Specialty Start Date End Date Winston Villatoro OD [facility] [place] [address] [place] [address] PCP - Ophthalmology Ophthalmology 02/11/13 Denise Woodson Ra, APRN SORTER LUMBER STRAIGHTENER [address] [place] [address] PCP - General Family Practice 09/21/20 Denise Woodson Ra, APRN SORTER LUMBER STRAIGHTENER [address] [place] [address] Assigned PCP 07/17/20 Usha Simon APRN SORTER LUMBER STRAIGHTENER 909 [facility] OR1328YI [place] [address] Nurse Practitioner Neurological Surgery 01/24/24 Dangelo Salinas MD [address] [place] [address] Neurology 01/27/24 documented as of this encounter
--- OUTSIDE RECORDS SUMMARY | 2024-05-07 18:48 | XMS_ITS | Encounter Summary ---
Author Organization [facility] Address [address] [place] [address]. [place] [address] Care Team Providers Care Ladle Operator Name Role Phone Winston Villatoro OD Unavailable [phone] Denise Woodson Ra, APRN HYDRAULIC PRESS IN OPERATOR Unavailable [phone]- [phone] Denise Woodson Ra, APRN HYDRAULIC PRESS IN OPERATOR Primary Care Provid er Usha Simon APRN HYDRAULIC PRESS IN OPERATOR Unavailable [phone]- [phone] Dangelo Salinas MD Unavailable Reason for Visit * Reason Comments Stroke Symptoms Encounter Details Date Type Department Care Team (Late st Contact Info) Description 02/04/2024 1:45 PM CDT - 02/04/2024 7:21 PM CDT Emergency [facility] Emergency Department [address] [place] [address] Jovita Vail MD [address] [place] [id number] Peter Gonzalez DO [address] [place] [phone] Left sided numbness; Vision abnormalities; Coordination abnormal [...] 5:24 PM CDT Thank you for choosing [facility] for your care. It was a pleasure [...] clinics below: - Primary Care Center (phone: [phone]) - Primary Care / [facility] (phone: [phone]) - Have your clinic provider review the [...] through Care Everywhere. * Numbness and Tingling (Albanian) documented in this encounter Medications at [...] from the original note were not included. [facility] Stroke Code Note History of [...] fluctuation. There is significant dysmetria with bilateral ttmivg-sf-qqxl and hands were outstretched and eyes closed, [...] month. On 01/04/24, the patient presented to [place] ED for evaluation of persistent headache and [...] to outpatient PT/OT. She presented again to [place] ER on 01/13 for continued frustration about [...] slowly improved and she is discharged to [facility] for management of right upper extremity weakness, ataxia, and gait instability. Per the patient and per rehab notes, she had excellent recovery during her ARU stay and her right side returned to her baseline. She was discharged from [facility] on 01/25 had felt like her normal self until Saturday when she started develop full facial numbness, and left arm and leg sensory changes stated above. 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 Left-sided numbness Alcon A Hecker is a 48 year old w/ PMH [...] month. In regard to her seizure at [facility] on 01/13, thepatient reports to us that [...] to the medical and neurology teams at [facility] [facility] for management of Bridget. Some of the [...] her contralateral ear on each hand with iucehm-it-mrix. This does not improve with repetition. With eyes open, there is no dysmetria with avaenv-oj-vkrb bilaterally. No dysmetria with bklu-ig-xzxg bilaterally. Station/Gait: Patient displays significant swaying with [...] secs 7. Limb Ataxia 0-->Absent 8. Sensory 1-->Tzct-os-oizxvuvq sensory loss, patient feels pinprick is less [...] procedure related complications. 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 Outpatient provider may consider referral to psychology for cognitive behavioral therapy (CBT). No further workup recommended. She maybe discharged home if she continues to have no focal deficits and ambulates well without support. Juancarlos Yip MD Hotel [employer] Floorperson Department of Neurology Securely message with the [employer] (learn more here) To page me or covering stroke neurology hat steamer, click here: AMCOM Choose Senior Operations Analyst tab at top, then search dropdown [...] from the original note were not included. [place] [facility] ([facility]) 02/04/24 ED PROVIDER NOTE ED 07 History [...] presented for a planned catheter angiogram at [facility] for left sided pulsatile tinnitus on 01/08. [...] by post-stroke seizures, admitted on 01/17/2024 at [facility] for acute inpatient rehabilitation. Discharged in setting of acute mental status change, concernfor seizure, workup felt not consistent with seizure, episodes felt related to fatigue/stress. She functionally made progress with ongoing strength, balance, activity tolerance, and cognition below baseline. She planned for home with outpatient PT/OT/MONORAIL OPERATOR. Past Medical History Past Medical History: Diagnosis [...] Past Surgical History: Procedure Laterality Date C CRM FUNCTIONAL ANALYST PROCEDURE DATE: vag del. C CRM FUNCTIONAL ANALYST PROCEDURE DATE: 2000 tubal ligation C CRM FUNCTIONAL ANALYST PROCEDURE DATE: 1994 D&C CARDIAC SURGERY 06/2006 heart defect repair ESOPHAGOSCOPY, GASTROSCOPY, DUODENOSCOPY (EGD), COMBINED N/A 02/08/2021 Procedure: ESOPHAGOGASTRODUODENOSCOPY (EGD); Surgeon: Tuan Miller MD; Location: GI GI SURGERY 09/2020 gallbladder removed HC KNEE SCOPE,MED/LAT MENISECTOMY 08/04/13 LT HEART CATH, CLOSURE ATRIAL SEPTAL DEFECT 06/20/06 amplatzer septal occluder- serial #[id number] RW CRM FUNCTIONAL ANALYST (ABSTRACTED) pneumonia several times SURGICAL PATHOLOGY EXAM [...] plantar flexion; tandem gait is in tact; bfbgor-ls-wphw is intact and symmetrical; per patient decreased [...] PM and verbalized understanding of the result. [facility] Stroke Communication Guidelines: [place] ED: [phone] (EB ED) [place] Inpatient: [phone] ext. [phone] (Stroke Ascom) [facility] [place]: [phone] ([place] ED) I have personally reviewed the [...] Images were reconstructed and reviewed on the [employer] 3D workstation. HEAD and NECK CTA: Thereafter, postcontrast images were obtained from the aortic arch through the southern ute of [place]. Axial images were obtained using thin collimation multidetector helical technique. This CT angiogram data was reconstructed at thin intervals with mild overlap. Images were sent to the [employer] workstation, and 3D reconstructions and multiplanar reformations were obtained with reconstructions performed by the technologist and the radiologist. The source images, multiplanar reformations, 3D reconstructions in both maximum intensity projection display and volume rendered models were reviewed, Contrast: 67cc of isovue 370 (accession [id number]), 50cc of isovue 370 (accession [id number]) Findings: CT Perfusion: Images documenting relative cerebral [...] Images were reconstructed and reviewed on the [employer] 3[employer] workstation. HEAD and NECK CTA: Thereafter, postcontrast images were obtained from the aortic arch through the southern ute of [place]. Axial images were obtained using thin collimation multidetector helical technique. This CT angiogram data was reconstructed at thin intervals with mild overlap. Images were sent to the [employer] workstation, and 3D reconstructions and multiplanar reformations were obtained with reconstructions performed by the technologist and the radiologist. The source images, multiplanar reformations, 3D reconstructions in both maximum intensity projection display and volume rendered models were reviewed, Contrast: 67cc of isovue 370 (accession [id number]), 50cc of isovue 370 (accession [id number]) Findings: CT Perfusion: Images documenting relative cerebral [...] lesion or intracranial hemorrhage. MARLO CAIN MD [place] Draw Status: None Narrative The following orders were created for panel order [place] Draw. Procedure Abnormality Status --------- ------ Extra Blue Top Tube[[id number]] Final result Extra Red Top Tube[[id number]] Final result Extra Green Top ([place]...[[id number]] Final result Extra Purple Top Tube[[id number]] Final result Please view results for these tests on the individual orders. Extra Blue Top Tube Status: None Result Value Ref Range Hold Specimen JIC Extra Red Top Tube Status: None Result Value Ref Range Hold Specimen JIC Extra Green Top ([place] Heparin) Tube Status: None Result Value Ref [...] Rate 88 BPM Atrial Rate 88 BPM [place] Interval 180 ms QRS Duration 70 ms QT 416 ms QTc 503 ms P [place] 56 degrees R AXIS 65 degrees T [place] 29 degrees Interpretation ECG Sinus rhythm with occasional Premature ventricular complexes Possible Left atrial enlargement Nonspecific ST abnormality Abnormal ECG Unconfirmed report - interpretation of this ECG is computer generated - see medical record for final interpretation Confirmed by - EMERGENCY ROOM, PHYSICIAN ([id number]), video news editor DEE DEE JACINTO ([id number]) on 02/05/2024 3:26:57 AM CBC with Platelets & Differential Status: None Narrative The following orders were created for panel order CBC with Platelets & Differential. Procedure Abnormality Status --------- ------ CBC with platelets and d...[[id number]] Final result Please view results for these tests on the individual orders. Medications iopamidol (ISOVUE-370) solution 117 mL (117 mLs Intravenous $Given 02/04/24 1425) And sodium chloride 0.9 % bag for CT scan flush use (100 mLs As instructed $Given 02/04/24 1425) gadobutrol (GADAVIST) injection 10 mL (10 mLs Intravenous $Given 02/04/24 5914) Labs Ordered and Resulted from Time of [...] PM and verbalized understanding of the result. [facility] Stroke Communication Guidelines: [place]: [phone] ([place] ED) [place] In[place]: [phone] ext. [phone] (Stroke Ascom) [facility] [place]: [phone] ([facility] ED) I have personally reviewed the [...] CVA(either ischemic or hemorrhagic), hypoglycemia, complex Migraine, TRIMMING CASER infection, Mass, MS, drug intoxication, and Seizure with post- ictal Reese's paralysis. Blood sugar on arrival was normal and patient has no h/o of migraine but did have recent episodes, unclear if they were seizures which could be a possible etiology, Patient is currently afebrile with no evidence of focal infection per history and physical exam to indicate TRIMMING CASER infection. Stat head CT and CT angio [...] ANDREA POOLE, am serving as a trained medical care administrator to document services personally performed byJovita Vail MD, based on the provider's statements to me. I, Jovita Vail MD, was physically present and have reviewed and verified the accuracy of this note documented by ANDREA POOLE. Jovita Vail MD [facility] EMERGENCY DEPARTMENT 02/04/2024 Jovita Vail MD 02/05/24 [...] Visit [facility] [address] [place] [address] Denise Woodson Ra, AQUATIC LABORER HYDRAULIC PRESS IN OPERATOR [address] [place] [address] documented as of this encounter Procedures Procedure [...] Atrial Rate 88 BPM RADIOLOG Y RESULTS [place] Interval 180 ms RADIOLOG Y RESULTS QRS Duration 70 ms RADIOLO GY RESULTS QT 416 ms RADIOLOGY RESULTS QTc 503 ms RADIOLOGY RESULTS P [place] 56 degrees RADIOLOGY RESULTS R AXIS 65 degrees RADIOLOGY RESULTS T [place] 29 degrees RADIOLOGY RESULTS Interpretation ECG Sinus rhythm with occasional Premature ventricular complexes Possible Left atrial enlargement Nonspecific ST abnormality Abnormal ECG Unconfirmed report - interpretation of this ECG is computer generated - see medical record for final interpretation Confirmed by - EMERGENCY ROOM, PHYSICIAN ([id number]), video news editor DEE DEE JACINTO ([id number]) on 02/05/2024 3:26:57 [...] ??Images were reconstructed and reviewed on the [employer] 3D workstation. HEAD and NECK CTA: Thereafter, postcontrast images were obtained from the aortic arch through the southern ute of [place]. ??Axial images were obtained using thin collimation multidetector helical technique. This CT angiogram data was reconstructed at thin intervals with mild overlap. Images were sent to the [employer] workstation, and 3D reconstructions and multiplanar reformations were obtained with reconstructions performed by the technologist and the radiologist. The source images, multiplanar reformations, 3D reconstructions in both maximum intensity projection display and volume rendered models were reviewed, Contrast: 67cc of isovue 370 (accession [id number]), 50cc of isovue 370 (accession [id number]) Findings: CT Perfusion: Images documenting relative cerebral [...] Images were reconstructed and reviewed on the [employer] 3[employer] workstation. HEAD and NECK CTA: Thereafter, postcontrast images were obtained from the aortic arch through the southern ute of [place]. Axial images were obtained using thin collimation multidetector helical technique. This CT angiogram data was reconstructed at thin intervals with mild overlap. Images were sent to the [employer] workstation, and 3D reconstructions and multiplanar reformations were obtained with reconstructions performed by the technologist and the radiologist. The source images, multiplanar reformations, 3D reconstructions in both maximum intensity projection display and volume rendered models were reviewed, Contrast: 67cc of isovue 370 (accession [id number]), 50cc of isovue 370 (accession [id number]) Findings: CT Perfusion: Images documenting relative cerebral [...] findings. MARLO CAIN MD Jovita Vail MD [facility] CT ORDERABLES * CT Head w/o Contrast [...] PM and verbalized understanding of the result. [facility] Stroke Communication Guidelines: [place]: [phone] (EB ED) [place]: [phone] ext. [phone] (Stroke Ascom) [facility] [place]: [phone] ([facility] ED) I have personally reviewed the [...] PM and verbalized understanding of the result. [facility] Stroke Communication Guidelines: [place]: [phone] ([place] ED) [place]: [phone] ext. [phone] (Stroke Ascom) [facility] [place]: [phone] ([facility] ED) I have personally reviewed the examination and initial interpretation and I agree with the findings. MARLO CAIN MD Jovita Vail MD IMG CT ORDERABLES * CTA Head Neck with Contrast (02/04/2024 2:41 PM CDT) Anatomical Region Laterality Modality Head, SUBRAD CT NEURO, SUBRA D CT NEURO, [facility] CT NEURO, RAD CT Computed Tomography [...] ??Images were reconstructed and reviewed on the [employer] 3[employer] workstation. HEAD and NECK CTA: Thereafter, postcontrast images were obtained from the aortic arch through the southern ute of [place]. ??Axial images were obtained using thin collimation multidetector helical technique. This CT angiogram data was reconstructed at thin intervals with mild overlap. Images were sent to the [employer] workstation, and 3D reconstructions and multiplanar reformations were obtained with reconstructions performed by the technologist and the radiologist. The source images, multiplanar reformations, 3D reconstructions in both maximum intensity projection display and volume rendered models were reviewed, Contrast: 67cc of isovue 370 (accession [id number]), 50cc of isovue 370 (accession [id number]) Findings: CT Perfusion: Images documenting relative cerebral [...] Images were reconstructed and reviewed on the [employer] 3[employer] workstation. HEAD and NECK CTA: Thereafter, postcontrast images were obtained from the aortic arch through the southern ute of [place]. Axial images were obtained using thin collimation multidetector helical technique. This CT angiogram data was reconstructed at thin intervals with mild overlap. Images were sent to the [employer] workstation, and 3D reconstructions and multiplanar reformations were obtained with reconstructions performed by the technologist and the radiologist. The source images, multiplanar reformations, 3D reconstructions in both maximum intensity projection display and volume rendered models were reviewed, Contrast: 67cc of isovue 370 (accession [id number]), 50cc of isovue 370 (accession [id number]) Findings: CT Perfusion: Images documenting relative cerebral [...] Jovita Vail MD IMG CT ORDERABLES * Creatinine POCT (02/04/2024 1:51 PM CDT) [facility] Creatinine POCT 0.9 0.5 - 1.0 mg/dL 02/04/2024 5:57 PM CDT [facility] POC GFR, ESTIMATED POCT >60 >60 mL/min/1.7 3m2 02/04/2024 5:57 PM CDT [facility] P[facility] Blood, venous BLOOD SPECIMEN / Unknown 02/04/2024 1:51 PM CDT 02/04/2024 5:57 PM CDT Jovita Vail MD LAB - AKER POCT [facility] POC [facility] [place] [facility] [address] [facility], Room [address] [place] [phone] * CBC with platelets and differential (02/04/2024 1:49 PM CDT) [facility] WBC Count 8.2 4.0 - 11.0 [...] - BLOOD ORDERABL ES Performing Organization Address City/[facility]/ZIP Co de Phone Number LABORATORY [facility] [place] [facility] [address] [facility], [address] [phone] * hCG Qualitative (02/04/2024 1:49 PM CDT) hCG Serum Qualitative Negative Negative PRATEEK 02/04/2024 2:45 PM CDT [facility] Comment:This test is for scr eening purposes. Results should be interpreted along with the clinical picture. Confirmation testing is available if warranted by ordering [id number], HCG Quantitative . Blood VENOUS LINE / Unknown Venipuncture / Unknown 02/04/2024 1:49 PM CDT 02/04/2024 2:02 PM CDT Joivta Vail MD LAB - BLOOD ORDERABL ES Performing Organization Address [facility] Co de Phone Number U LABORATORY [facility] [place] [facility] [address] [facility], [address] [phone] * Troponin T, High Sensitivity (02/04/2024 1:49 PM CDT) Troponin T, High Sensitivity <6 <=14 ng/L 02/04/2024 2:46 PM CDT [facility] Comment: Either a High Sensitivity Troponin [...] - BLOOD ORDERABL ES Performing Organization Address City/[facility]/ZIP Co de Phone Number U LABORATORY [facility] [place] [facility] [address] [facility], [address] [phone] * Partial thromboplastin time (02/04/2024 1:49 PM CDT) aPTT 25 22 - 38 Seconds 02/04/2024 2:41 PM CDT [facility] Blood VENOUS LINE / Unknown Venipuncture / Unknown 02/04/2024 1:49 PM CDT 02/04/2024 2:03 PM CDT Jovita Vail MD LAB - BLOOD ORDERABL ES Performing Organization Address [facility]/ZIP Co de Phone Number U LABORATORY [facility] [place] [facility] [address] [facility], [address] [phone] * INR (02/04/2024 1:49 PM CDT) INR 0.90 0.85 - 1.15 02/04/2024 2:41 PM CDT [facility] Blood VENOUS LINE / Unknown Venipuncture / Unknown 02/04/2024 1:49 PM CDT 02/04/2024 2:03 PM CDT Jovita Vail MD LAB - BLOOD ORDERABL ES U LABORATORY [facility] [place] [facility] [address] [facility], [address] [phone] * Basic metabolic panel (02/04/2024 1:49 PM [...] LAB - BLOOD ORDERABL ES [facility] [place] [facility] [address] [facility], [address] [place] [address] * Extra Purple Top Tube (02/04/2024 1:49 PM CDT) Hold Specimen [facility] 02/04/2024 3:16 PM CDT [facility] Blood VENOUS LINE / Unknown Venipuncture / Unknown 02/04/2024 1:49 PM CDT 02/04/2024 2:03 PM CDT Jovita Vail MD LAB - BLOOD ORDERABL ES LABORATORY [facility] [place] [facility] [address] [facility], [address] [phone] * Extra Green Top ([place] Heparin) Tube (02/04/2024 1:49 PM CDT) Hold Specimen [facility] 02/04/2024 3:16 PM CDT [facility] Blood VENOUS LINE / Unknown Venipuncture / Unknown 02/04/2024 1:49 PM CDT 02/04/2024 2:02 PM CDT Jovita Vail MD LAB - BLOOD ORDERABL ES Performing Organization Address City/[facility]/ZIP Co de Phone Number LABORATORY [facility] [place] [facility] [address] [facility], [address] [phone] * Extra Red Top Tube (02/04/2024 1:49 PM CDT) Hold Specimen [facility] 02/04/2024 3:16 PM CDT U LABORATORY Blood VENOUS LINE / Unknown Venipuncture / Unknown 02/04/2024 1:49 PM CDT 02/04/2024 2:02 PM CDT Jovita Vail MD LAB - BLOOD ORDERABL ES LABORATORY [facility] [place] [facility] [address] [facility], [address] [phone] * Extra Blue Top Tube (02/04/2024 1:49 PM CDT) Hold Specimen [facility] 02/04/2024 3:16 PM CDT [facility] Blood VENOUS LINE / Unknown Venipuncture / Unknown 02/04/2024 1:49 PM CDT 02/04/2024 2:03 PM CDT Jovita Vail MD LAB - BLOOD ORDERABL ES Performing Organization Address City/[facility]/ZIP Co de Phone Number [facility] [place] [facility] [address] [facility], [address] [place] [address] * Glucose by meter (02/04/2024 1:48 PM CDT) GLUCOSE BY METER POCT 93 70 - 99 mg/dL 02/04/2024 1:55 PM CDT [facility] POC Blood, Capillary BLOOD SPECIMEN / Unknown 02/04/2024 1:48 PM CDT 02/04/2024 1:55 PM CDT Jovita Vail MD LAB - BEAKER POCT [facility] POC [facility] Core Lab [address] [facility], [address] [place] [address] documented in this encounter Visit Diagnoses Diagnosis [...] use As instructed, 100 mL, ONCE, On 02/04/24 at 1420, For 1 dose, This entry is for use by Radiology to intermittently used as a flush in patients receiving a CT scan. $Given 02/04/2024 2:25 PM CDT 100 mLs documented in this encounter Active and Recently Administered Medications Times are shown in CDT. Scheduled Medication Order 02/02/2024 02/03/2024 02/04/2024 gadobutrol (GADAVIST) injection 10 mL (COMPLETED) 10 mL, Intravenous, ONCE, On 02/04/24 at 1810, For 1 dose 1832 ($Given [...] 1) As instructed, 100 mL, ONCE, On e 02/04/24 at 1420, For 1 dose, This entry [...] to med 117 mL, Intravenous, ONCE, On 02/04/24 at 1420, For 1 dose, To be administered by Imaging staff during CTA Head/Neck scan, and CT Head Perfusion scan, if performed. And sodium chloride 0.9 % bag for CT scan flush use (COMPLETED)Jump to med As instructed, 100 mL, ONCE, On 02/04/24 at 1420, For 1 dose, This entry is for use by Radiology to intermittently used as a flush in patients receiving a CT scan. documented in this encounter Additional Health Concerns Assessment Noted Time PHQ-9 Depression Total Score: 15 024 10:47 AM CDT documented as of this encounter Care Teams Ladle Operator Relationship Specialty Start Date End Date Winston Villatoro OD [facility] [place] [address] [place] [address] PCP - Ophthalmology Ophthalmology 02/11/13 Denise Woodson Ra, APRN HYDRAULIC PRESS IN OPERATOR [address] [facility] [place] [address] PCP - General Family Practice 09/21/20 Denise Woodson Ra, APRN HYDRAULIC PRESS IN OPERATOR [address] [facility] [place] [address] Assigned PCP 07/17/20 Usha Simon APRN HYDRAULIC PRESS IN OPERATOR [address] [facility], [place] [address] Nurse Practitioner Neurological Surgery 01/24/24 Dangelo Salinas MD [address] [place], [place] [id number] Neurology 01/27/24 documented as of this encounter
--- OUTSIDE RECORDS SUMMARY | 2024-05-07 18:48 | XMS_ITS | Encounter Summary ---
Author Organization [place] Address [address] [place] [address] Care Team Providers Care Chaser Tar Name Role Phone Winston Villatoro OD Unavailable [phone] Denise Woodson Ra, APRN MARINE STEWARD Unavailable + [phone] Denise Woodson Ra, APRN MARINE STEWARD Primary Care Provid er Usha Simon APRN MARINE STEWARD Unavailable + [phone] Dangelo Salinas MD Unavailable Reason for Visit * Reason Onset Date Comments *-*INCOMING RECORDS*-* 01/31/2024 Encounter Details Date Type Department Care Team (Late st Contact Info) Description 01/31/2024 PRE VISIT [facility] Neuro[facility] [address] [place] [address] Usha Simon APRN [id number] [place] [address] *-*INCOMING RECORDS*-* Social History Tobacco Use Types [...] Records Requested January 24, 2024 4:21 PM [id number] Facility [facility] 4:24 pm Sent request for imaging to be pushed to PACS. -EDITH Toth on 01/29/2024 at 8:28 AM Imaging resolved into PACS. -EDITH Records Requested January 24, 2024 4:21 PM [id number] Facility [facility] 4:25 pm Sent request for imaging to [...] Care Everywhere 01/15/24, 01/14/24 Bette Mantilla MD @[facility] Neuroscience [facility] 01/14/24 Roshni Molina MD @[facility] DISCHARGE SUMMARY from hospital Internal 01/22/24-Present (as of 01/24/24) Parminder Del Angel MD @[facility] 01/19/24-01/22/24 Jeevan Sheth MD @[facility] EEG Internal [facility] 01/19/24 EEG Videl 2-12 Hrs Unmonitored MEDICATION LIST Internal IMAGING (FOR ALL VISITS) IR PACS [facility] 01/09/24 IR Angio Carotid Bilat MRI (HEAD, NECK, SPINE) PACS [facility] 01/20/24 MRA Neck (Caroitd) 01/20/24 MR Brain 01/20/24 MRA Brain (COW) [facility] 09/28/22 MR Cervical Spine 09/28/[address] (HEAD, NECK, SPINE) PACS [facility] 01/19/24 CT Head [facility] 01/09/24 CTA Head & Neck Carotid [place] 09/27/22 CTA Head Neck 09/25/22 CT Head documented in this encounter Plan of Treatment Upcoming Encounters Date Type Department Care Team (Late st Contact Info) Description 06/08/2024 8:30 AM CDT Office Visit [facility] [address] [place] [address] Denise Woodson Ra, APRN MARINE STEWARD [address] [place] [address] documented as of this encounter Visit Diagnoses Not on filedocumented in this encounter Additional Health Concerns Assessment Noted Time PHQ-9 Depression Total Score: 0 06/23/20 21 4:11 PM CDT documented as of this encounter Care Teams Chaser Tar Relationship Specialty Start Date End Date Winston Villatoro OD [facility] [place] [address] [facility] [address] [place] [address] PCP - Ophthalmology Ophthalmology 02/11/13 Denise Woodson Ra, APRN MARINE STEWARD [address] [place] [address] PCP - General Family Practice 09/21/20 Denise Woodson Ra, APRN MARINE STEWARD [address] [place] [address] Assigned PCP 07/17/20 Usha Simon APRN MARINE STEWARD 909 [facility] [id number] [place] [address] Nurse Practitioner Neurological Surgery 01/24/24 Dangelo Salinas MD [address] [place] [address] Neurology 01/27/24 documented as of this encounter
--- OUTSIDE RECORDS SUMMARY | 2024-05-07 18:48 | XMS_ITS | Encounter Summary ---
Author Organization [place] Address [address] [place] [address]. [place] [address] Care Team Providers Care Data Processing Control Clerk Name Role Phone Winston Villatoro OD Unavailable [phone] Denise Woodson Ra, APRN INTELLECTUAL PROPERTY PARALEGAL Unavailable + [phone] Denise Woodson Ra BACK UP WORKER INTELLECTUAL PROPERTY PARALEGAL Primary Care Provid er Usha Simon APRN INTELLECTUAL PROPERTY PARALEGAL Unavailable + [phone] Dangelo Salinas MD Unavailable Encounter Details Date Type Department Care Team (Late st Contact Info) Description 02/03/2024 [facility] [address] [place] [address] Denise Woodson Ra, APRN INTELLECTUAL PROPERTY PARALEGAL [address] [place] [address] Social History Tobacco Use Types [...] 06/08/2024 8:30 AM CDT [facility] [address] [place] [address] Denise Woodson Ra, APRN INTELLECTUAL PROPERTY PARALEGAL [address] [place] [address] documented as of this encounter Visit Diagnoses Not on filedocumented in this encounter Additional Health Concerns Assessment Noted Time PHQ-9 Depression Total Score: 0 06/23/20 21 4:11 PM CDT documented as of this encounter Care Teams Data Processing Control Clerk Relationship Specialty Start Date End Date Winston Villatoro OD [facility] [place] 701 [facility] [address] [place] [address] PCP - Ophthalmology Ophthalmology 02/11/13 Denise Woodson Ra, APRN INTELLECTUAL PROPERTY PARALEGAL [address] [place] [address] PCP - General Family Practice 09/21/20 Denise Woodson Ra, APRN INTELLECTUAL PROPERTY PARALEGAL [address] [place] [address] Assigned PCP 07/17/20 Usha Simon APRN INTELLECTUAL PROPERTY PARALEGAL 909 [id number] [place] [address] Nurse Practitioner Neurological Surgery 01/24/24 Dangelo Salinas MD [address] [place] [address] Neurology 01/27/24 documented as of this encounter
--- OUTSIDE RECORDS SUMMARY | 2024-05-07 18:48 | XMS_ITS | Encounter Summary ---
Author Organization [place] Address [address] [place] [address]. [place] [address] Care Team Providers Care Marketing Representative Name Role Phone Winston Villatoro OD Unavailable [phone] Denise Woodson Ra, APRN CLOUD AUTOMATION TESTER Unavailable +- [phone] Denise Woodson Ra REC THERAPIST CLOUD AUTOMATION TESTER Primary Care Provid er Usha Simon APRN CLOUD AUTOMATION TESTER Unavailable [phone] Dangelo Salinas MD Unavailable Usha Simon APRN CLOUD AUTOMATION TESTER Unavailable [phone] Anastasia Stearns RN Unavailable [phone] Reason for Visit * Rehab Therapy Integrated Services (Routine) - Authorized Specialty Diagnoses / Procedures Referred By Contac t Referred To Contact Diagnoses Cerebrovascular accident (CVA), unspecified mechanism (H) [address] [address] Referral ID Status Reason Start Date Expiration Date V isits Requested Visits Authorized [id number] Authorized 09/16/2023 09/15/2024 365 365 Encounter Details Date Type Department Care Team (Latest Contact Info) Description 02/07/2024 2:00 PM CDT Therapy Visit [address] [phone] Danya You, AMAIRANI [address] [place] [address] Charis Chacon, [facility] [address] [place] [address] Cerebrovascular accident (CVA), unspecified mechanism (H) (Primary [...] Description 06/08/2024 8:30 AM CDT Office Visit [facility] [address] [place] [address] Denise Woodson Ra, REC THERAPIST [facility] [address] [place] [address] documented as of this encounter Visit Diagnoses Diagnosis Cerebrovascular accident (CVA), unspecified mechanism (H)- Primary documented in this encounter Additional Health Concerns Assessment Noted Time PHQ-9 Depression Total Score: 14 024 9:33 AM CDT documented as of this encounter Care Teams Marketing Representative Relationship Specialty Start Date End Date Winston Villatoro OD [facility] [place] [address] [facility] [address] [place] [address] PCP - Ophthalmology Ophthalmology 02/11/13 Denise Woodson Ra, APRN CLOUD AUTOMATION TESTER [address] [place], [place] [address] PCP - General Family Practice 09/21/20 Denise Woodson Ra, APRN CLOUD AUTOMATION TESTER [address] [place] [id number] Assigned PCP 07/17/20 Usha Simon APRN CLOUD AUTOMATION TESTER [address] [id number] Nurse Practitioner Neurological Surgery 01/24/24 Dangelo Salinas MD [address] [place] [address] Neurology 01/27/24 Usha Simon APRN CLOUD AUTOMATION TESTER [address] [address] Assigned Neuroscience Provider 02/06/24 03/07/24 Anastasia Stearns RN Lead Cabinet Assembler 02/06/24 documented as of this encounter
--- OUTSIDE RECORDS SUMMARY | 2024-05-07 18:48 | XMS_ITS | Encounter Summary ---
Author Organization [place] Address [address] [place] [address] Care Team Providers Care Stock Broker Supervisor Name Role Phone ShaunaWinston OD Unavailable [phone] Denise Woodson Ra, APRN HEAVY EQUIPMENT FIELD MECHANIC Unavailable [phone] Denise Woodson Ra, APRN HEAVY EQUIPMENT FIELD MECHANIC Primary Care Provid er Usha Simon APRN HEAVY EQUIPMENT FIELD MECHANIC Unavailable + [phone] Dangelo Salinas MD Unavailable Usha Simon APRN HEAVY EQUIPMENT FIELD MECHANIC Unavailable + [phone] Anastasia Stearns RN Unavailable [phone] Reason for Referral * Care Coordination (Urgent: 3-5 Days) - Pending Review Specialty Diagnoses / Procedures Referred By Contac t Referred To Contact Diagnoses Fibromuscular dysplasia (H24) Cerebrovascular accident (CVA), unspecified mechanism (H) Denise Woodson Ra, ASPHALT PAVING SUPERVISOR HEAVY EQUIPMENT FIELD MECHANIC [address] [place] [address] Referral ID Status Reason Start Date Expiration Date V isits Requested Visits Authorized [id number] Pending Review 02/06/2024 02/05/2025 1 1 Question [...] Review Specialty Diagnoses / Procedures [facility] Referred To Contact Diagnoses Fibromuscular dysplasia (H24) Cerebrovascular accident (CVA), unspecified mechanism (H) Denise Woodson Ra, APRN CNP [address] [place] [address] Referral ID Status Reason Start Date Expiration Date V isits Requested Visits Authorized [id number] Pending Review 02/06/2024 02/05/2025 1 1 Question Answer Reason for Referral: Epilepsy/Seizures Scheduling Instructions: [employer] will call you to coordinate your care as prescribed by your provider. If you don't hear from a membership sales representative within 2 business days, please [...] plan with any benefit or coverage questions. [employer] will call you to coordinate your care as prescribed by your provider. If you don't hear from a membership sales representative within 2 business days, please call . * Diagnostic Imaging CT Scan (Routine) - Closed Specialty Diagnoses / Procedures [facility]erred By [facility] Referred To Contact Radiology. Diagnoses Fibromuscular dysplasia (H24) Procedures CTA Chest Abdomen Pelvis w Contrast Denise Woodson Ra, APRN CNP [address] [place] [address] Referral ID Status Reason Start Date Expiration Date Visits Re quested Visits Authorized [id number] Closed 02/06/2024 02/05/2025 1 1 Reason for Visit * Reason Comments Hospital F/U Encounter Details Date Type Department Care Team (Late st Contact Info) Description 02/06/2024 8:30 AM CDT Office Visit [facility] [address] [place] [phone] Denise Woodson Ra, ASPHALT PAVING SUPERVISOR HEAVY EQUIPMENT FIELD MECHANIC [address] [place] [address] Fibromuscular dysplasia (H24) (Primary Dx); [...] to be sent to my team in [place] directly. Otherwise, I will not know that you were trying to reach out. You will also be contacted by a primary care pediatrician shortly. They can help with scheduling and [...] Pelvis w Contrast; Future - Adult Neurology Neurology Tech Referral; Future - Primary Care - Care Coordination Referral; Future Cerebrovascular accident (CVA), unspecified mechanism (H) Following with neurology. PT, OT. - Adult Neurology Neurology Tech Referral; Future - Primary Care - Care [...] transport help right now Hospital Follow-up Visit: Hospital/Jail/IP Rehab Facility: [facility] Date of Admission: 01/22/24 Date of Discharge: [...] to non-medication therapy: None Summary of hospitalization: [facility] hospital discharge summary reviewed Diagnostic Tests/Treatments reviewed. Follow up needed: neurosurgery, neurology, PT, OT. Other Healthcare Providers Involved in Patient???s Care: Physical Therapy Update since discharge: stable. She presented for a planned catheter angiogram at [facility] for left sided pulsatile tinnitus [...] on Levetiracet am. She was admitted to [facility] between 01/16- 01/19/2024 for acute inpatient [...] full recovery. 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 She is having issues with her keppra. [...] Description 06/08/2024 8:30 AM CDT Office Visit [address] [address] Denise Woodson Ra, ASPHALT PAVING SUPERVISOR HEAVY EQUIPMENT FIELD MECHANIC [address] [place] [address] Scheduled Referrals Name Type Priority Associated Diagnoses Orde r Schedule Adult Neurology Neurology Tech Referral Referral Urgent: 3-5 Days Fibromuscular dysplasia (H24) Cerebrovascular accident (CVA), unspecified mechanism (H) Expected: 02/06/2024 (Approximate), Expires: 02/05/2025 Primary Care - Care Coordination Referral Referral Urgent: 3-5 Days Fibromuscular dysplasia (H24) Cerebrovascular accident (CVA), unspecified mechanism (H) Expected: 02/06/2024 (Approximate), Expires: 02/05/2025 documented as of this encounter Results * CTA Chest Abdomen [...] identified. SINGH WORLEY MD Denise Woodson APRN [facility] CT ORDER NASRIN documented in this encounter Visit Diagnoses Diagnosis Fibromuscular dysplasia (H24)- Primary Other specified disorders of arteries and arterioles Cerebrovascular accident (CVA), unspecified mechanism (H) TSH elevation Other abnormal blood chemistry Fibromuscular dysplasia (H24) Other specified disorders of arteries and arterioles documented in this encounter Additional Health Concerns Assessment Noted Time PHQ-9 Depression Total Score: 14 024 9:33 AM CDT documented as of this encounter Care Teams Stock Broker Supervisor Relationship Specialty Start Date End Date Winston Villatoro OD [facility] [place] [address] [place] [address] PCP - Ophthalmology Ophthalmology 02/11/13 Denise Woodson Ra, APRN HEAVY EQUIPMENT FIELD MECHANIC [address] [address] [place] [address] PCP - General Family Practice 09/21/20 Denise Woodson Ra, APRN HEAVY EQUIPMENT FIELD MECHANIC [address] [place] [address] Assigned PCP 07/17/20 Usha Simon APRN HEAVY EQUIPMENT FIELD MECHANIC [address] [address] Nurse Practitioner Neurological Surgery 01/24/24 Dangelo Salinas MD [address] [place] [address] Neurology 01/27/24 Usha Simon APRN HEAVY EQUIPMENT FIELD MECHANIC [address] [address] Assigned Neuroscience Provider 02/06/24 03/07/24 Anastasia Stearns, RN Lead Brand Attendant 02/06/24 documented as of this encounter
--- OUTSIDE RECORDS SUMMARY | 2024-05-07 18:48 | XMS_ITS | Encounter Summary ---
Author Organization [place] Address [address] [place] [address] Care Team Providers Care Unloading Checker Name Role Phone Winston Villatoro OD Unavailable [phone] Denise Woodson Ra, APRN PROCESS CONTROL SPECIALIST Unavailable + [phone] Denise Woodson Ra, APRN PROCESS CONTROL SPECIALIST Primary Care Provid er Usha Simon APRN PROCESS CONTROL SPECIALIST Unavailable + [phone] Dangelo Salinas MD Unavailable Encounter Details Date Type Department Care Team (Late st Contact Info) Description 01/30/[address] [facility] Neurology Clinic [address] [address] Stacey Kelley, RN Social History [...] Description 06/08/2024 8:30 AM CDT Office Visit [address] [address] Denise Woodson Ra, APRN PROCESS CONTROL SPECIALIST [address] [place] [address] documented as of this encounter Visit Diagnoses Not on filedocumented in this encounter Additional Health Concerns Assessment Noted Time PHQ-9 Depression Total Score: 0 06/23/20 21 4:11 PM CDT documented as of this encounter Care Teams Unloading Checker Relationship Specialty Start Date End Date Winston Villatoro OD [facility] [place] [address] [place] [address] PCP - Ophthalmology Ophthalmology 02/11/13 Denise Woodson Ra, APRN PROCESS CONTROL SPECIALIST [address] [place] [address] PCP - General Family Practice 09/21/20 Denise Woodson Ra, APRN PROCESS CONTROL SPECIALIST [address] [place] [address] Assigned PCP 07/17/20 Usha Simon APRN PROCESS CONTROL SPECIALIST 909 [facility] [id number] [place] [address] Nurse Practitioner Neurological Surgery 01/24/24 Dangelo Salinas MD [address] [place] [address] Neurology 01/27/24 documented as of this encounter
--- OUTSIDE RECORDS SUMMARY | 2024-05-07 18:48 | XMS_ITS | Encounter Summary ---
Author Organization [place] Address [address] [place] [address]. [place] [address] Care Team Providers Care Gunstock Spray Unit Adjuster Name Role Phone Winston Villatoro Se OD Unavailable [phone] Denise Woodson Ra, APRN HEAD OF ENGLISH Unavailable + [phone] Denise Woodson Ra, APRN HEAD OF ENGLISH Primary Care Provid er Usha Simon APRN HEAD OF ENGLISH Unavailable + [phone] Dangelo Salinas MD Unavailable Encounter Details Date [...] Description 06/08/2024 8:30 AM CDT Office Visit [facility] [address] [place] [address] Denise Woodson Ra, APRN HEAD OF ENGLISH [address] [place] [address] documented as of this encounter Visit Diagnoses Not on filedocumented in this encounter Additional Health Concerns Assessment Noted Time PHQ-9 Depression Total Score: 0 06/23/20 21 4:11 PM CDT documented as of this encounter Care Teams Gunstock Spray Unit Adjuster Relationship Specialty Start Date End Date Winston Villatoro OD [facility] [place] [address] [place] [address] PCP - Ophthalmology Ophthalmology 02/11/13 Denise Woodson Ra, APRN HEAD OF ENGLISH [address] [place] [address] PCP - General Family Practice 09/21/20 Denise Woodson Ra, APRN HEAD OF ENGLISH [address] [place] [address] Assigned PCP 07/17/20 Usha Simon APRN HEAD OF ENGLISH 909 [facility] [id number] [place] [address] Nurse Practitioner Neurological Surgery 01/24/24 Dangelo Salinas MD [address] [place] [address] Neurology 01/27/24 documented as of this encounter
--- OUTSIDE RECORDS SUMMARY | 2024-05-07 18:48 | XMS_ITS | Encounter Summary ---
Author Organization [place] Address [address] [place] [address]. [place] [address] Care Team Providers Care Electrical Products Sales Engineer Name Role Phone Winston Villatoro Se OD Unavailable [phone] Denise Woodson Ra, APRN GEOPHYSICS SCIENTIST Unavailable + [phone] Denise Woodson Ra, APRN GEOPHYSICS SCIENTIST Primary Care Provid er Usha Simon APRN GEOPHYSICS SCIENTIST Unavailable + [phone] Dangelo Salinas MD Unavailable Encounter Details Date [...] 8:30 AM CDT Office Visit [facility] [address] [place] [address] Denise Woodson Ra, APRN GEOPHYSICS SCIENTIST [address] [place] [address] documented as of this encounter Visit Diagnoses Not on filedocumented in this encounter Additional Health Concerns Assessment Noted Time PHQ-9 Depression Total Score: 0 06/23/20 21 4:11 PM CDT documented as of this encounter Care Teams Electrical Products Sales Engineer Relationship Specialty Start Date End Date Winston Villatoro OD [facility] [place] [address] [place] [address] PCP - Ophthalmology Ophthalmology 02/11/13 Denise Woodson Ra, APRN GEOPHYSICS SCIENTIST [address] [place] [address] PCP - General Family Practice 09/21/20 Denise Woodson Ra, APRN GEOPHYSICS SCIENTIST [address] [place] [address] Assigned PCP 07/17/20 Usha Siomn APRN GEOPHYSICS SCIENTIST 909 [facility] [id number] [place] [address] Nurse Practitioner Neurological Surgery 01/24/24 Dangelo Salinas MD [address] [place] [address] Neurology 01/27/24 documented as of this encounter
--- OUTSIDE RECORDS SUMMARY | 2024-05-07 18:48 | XMS_ITS | Encounter Summary ---
Author Organization [place] Address [address] [place] [address] Care Team Providers Care Plastics Bench Mechanic Name Role Phone Winston Villatoro OD Unavailable [phone] Denise Woodson Ra, APRN JOURNALISM INTERNSHIP Unavailable + [phone] Denise Woodson Ra, APRN JOURNALISM INTERNSHIP Primary Care Provid er Usha Simon APRN [employer]OURNALISM INTERNSHIP Unavailable + [phone] Dangelo Salinas MD Unavailable Reason for Visit * Reason Comments New Patient * Consultation (Routine: Next available opening) - Pending Review Specialty Diagnoses / Procedures Referred By Nila shah Referred To Contact Neurological Surgery Diagnoses Dural arteriovenous fistula Jeevan Sheth MD [address] [place] [address] Referral ID Status Reason Start Date Expiration Date V isits Requested Visits Authorized [id number] Pending Review 01/23/2024 01/22/2025 1 1 Encounter Details Date Type Department Care Team (Latest Contact Info) Description 01/31/2024 9:30 AM CDT Office Visit [facility] [address] [place] [address] Jeevan Sheth MD [address] [place] [address] Usha Simon APRN [address] [address] Dural arteriovenous fistula Social History Tobacco Use [...] encounter Progress Notes * Usha Simon APRN [employer]ISM INTERNSHIP - 01/31/2024 9:30 AM CDT Images from the original note were not included. [facility] Department of Neurosurgery Name: Alcon Zamora Age: [age] year old : 1975 Referring provider: Jeevan Sheth 01/31/2024 Chief Complaint: Dural AVF Questionable FMD New Patient History of Present Illness: Alcon Zamora is a 48 year old female with past medical history of Lizy-Danlos syndrome, mild persistent asthma, anxiety and depression, fibromyalgia. She presented for a planned catheter angiogramat [facility] for left sided pulsatile tinnitus on 01/09/24. [...] started on Levetiracetam. She was admitted to [facility] between 01/16- 01/19/2024 for acute inpatient rehab [...] Past Surgical History: Procedure Laterality Date C HEARING CARE PRACTITIONER PROCEDURE DATE: vag del. C HEARING CARE PRACTITIONER PROCEDURE DATE: 2000 tubal ligation C HEARING CARE PRACTITIONER PROCEDURE DATE: 1994 D&C CARDIAC SURGERY 06/2006 heart defect repair ESOPHAGOSCOPY, GASTROSCOPY, DUODENOSCOPY (EGD), COMBINED N/A 02/08/2021 Procedure: ESOPHAGOGASTRODUODENOSCOPY (EGD); Surgeon: Tuan Miller MD; Location: GI GI SURGERY 09/2020 gallbladder removed HC KNEE SCOPE,MED/LAT MENISECTOMY 08/04/13 LT HEART CATH, CLOSURE ATRIAL SEPTAL DEFECT 06/20/06 amplatzer septal occluder- serial #[id number] RW HEARING CARE PRACTITIONER (ABSTRACTED) pneumonia several times SURGICAL PATHOLOGY EXAM [...] Sensation intact throughout. Mild dysmetria with right dvqfcm-abpf-zjlqme testing. Gait: Walks slowly with slightly wide [...] to discuss treatment options. Message sent to clinical athletic instructor. Usha Simon CNP Department of Neurosurgery I [...] CDT Office Visit [facility] [address] [facility] [place] [address] Denise Woodson Ra, BARRERA J[employer]RNALISM INTERNSHIP [address] [facility] [facility] [place] [id number] documented as of this encounter Visit Diagnoses Diagnosis Dural arteriovenous fistula Cerebral aneurysm, nonruptured documented in this encounter Additional Health Concerns Assessment Noted Time PHQ-9 Depression Total Score: 0 06/23/20 21 4:11 PM CDT documented as of this encounter Care Teams Plastics Bench Mechanic Relationship Specialty Start Date End Date Winston Villatoro OD [facility] [place] [address] [place] [address] PCP - Ophthalmology Ophthalmology 02/11/13 Denise Woodson Ra, APRN [employer] [address] [place] [address] PCP - General Family Practice 09/21/20 Denise Woodson Ra, APRN [employer] [address] [place] [address] Assigned PCP 07/17/20 Usha Simon APRN [employer] 9[address] [facility] KD2730SG [place] [address] Nurse Practitioner Neurological Surgery 01/24/24 Dangelo Salinas MD [address] [place] [address] Neurology 01/27/24 documented as of this encounter
--- OUTSIDE RECORDS SUMMARY | 2024-05-07 18:48 | XMS_ITS | Encounter Summary ---
Author Organization [place] Address [address] [place] [address] Care Team Providers Care Kennel Keeper Name Role Phone Winston Villatoro OD Unavailable [phone] Denise Woodson Ra, APRN FISHERIES MANAGER Unavailable +- [phone] Denise Woodson Ra PRACTICING MD ANESTHESIOLOGIST FISHERIES MANAGER Primary Care Provid er Usha Simon APRN FISHERIES MANAGER Unavailable + [phone] Dangelo Salinas MD Unavailable Usha Simon APRN FISHERIES MANAGER Unavailable +- [phone] Anastasia Stearns RN Unavailable [phone] Reason for Visit * Reason Onset Date Comments Appointment 02/06/2024 Follow-up 4 PHQ9 Encounter Details Date Type Department Care Team (Late st Contact Info) Description 02/06/2024 [facility] [address] 3rd [place] [address] Meche De La Cruz RN [...] and getting her connected with a FP Bar Pointer. Has good family support. Patient is aware [...] 8:30 AM CDT Office Visit [facility] [address] [place] [phone] Denise Woodson Ra, PRACTICING MD ANESTHESIOLOGIST FISHERIES MANAGER [address] [place] [address] documented as of this encounter Visit Diagnoses Not on filedocumented in this encounter Additional Health Concerns Assessment Noted Time PHQ-9 Depression Total Score: 14 024 9:33 AM CDT documented as of this encounter Care Teams Kennel Keeper Relationship Specialty Start Date End Date Winston Villatoro OD [facility] [place] [address] [place] [address] PCP - Ophthalmology Ophthalmology 02/11/13 Denise Woodson Ra, PRACTICING MD ANESTHESIOLOGIST FISHERIES MANAGER [address] [address] [place] [address] PCP - General Family Practice 09/21/20 Denise Woodson Ra, PRACTICING MD ANESTHESIOLOGIST FISHERIES MANAGER [address] [place] [address] Assigned PCP 07/17/20 Usha Simon APRN FISHERIES MANAGER [address] [address] Nurse Practitioner Neurological Surgery 01/24/24 Dangelo Salinas MD [address] [place] [address] Neurology 01/27/24 Usha Simon APRN FISHERIES MANAGER [address] [address] Assigned Neuroscience Provider 02/06/24 03/07/24 Anastasia Stearns, RN Lead Bar Pointer 02/06/24 documented as of this encounter
--- OUTSIDE RECORDS SUMMARY | 2024-05-07 18:48 | XMS_ITS | Encounter Summary ---
Author Organization [place] Address [address] [place] [address] Care Team Providers Care Software Engineer Name Role Phone ShaunaWinston OD Unavailable [phone] Denise Woodson Ra, APRN ELECTRONICS TESTER Unavailable [phone] Denise Woodson Ra, APRN ELECTRONICS TESTER Primary Care Provid er Usha Simon APRN ELECTRONICS TESTER Unavailable +[phone] Dangelo Salinas MD Unavailable Usha Simon APRN ELECTRONICS TESTER Unavailable [phone] Anastasia Stearns RN Unavailable [phone] Encounter Details Date Type Department Care Team [...] CDT Office Visit [facility] [place] [address] [place] [address] Denise Woodson Ra, BARRERA ELECTRONICS TESTER [address] [place] [address] documented as of this encounter Visit Diagnoses Not on filedocumented in this encounter Additional Health Concerns Assessment Noted Time PHQ-9 Depression Total Score: 14 024 9:33 AM CDT documented as of this encounter Care Teams Software Engineer Relationship Specialty Start Date End Date Winston Villatoro OD [facility] [place] [address] [facility] [address] [place] [address] PCP - Ophthalmology Ophthalmology 02/11/13 Denise Woodson Ra, BARRERA ELECTRONICS TESTER [address] [place] [address] PCP - General Family Practice 09/21/20 Denise Woodson Ra, APRN ELECTRONICS TESTER [address] [place] [address] Assigned PCP 07/17/20 Usha Simon APRN ELECTRONICS TESTER 909 [facility]121[place] [address] Nurse Practitioner Neurological Surgery 01/24/24 Dangelo Salinas MD [address] [place] [address] Neurology 01/27/24 Usha Simon APRN ELECTRONICS TESTER 9 [facility]121[place] [address] Assigned Neuroscience Provider 02/06/24 03/07/24 Anastasia Stearns, RN Lead Bond Broker 02/06/24 documented as of this encounter
--- OUTSIDE RECORDS SUMMARY | 2024-05-07 18:48 | XMS_ITS | Encounter Summary ---
Author Organization [place] Address [address] [place] [address]. [place] [address] Care Team Providers Care Trichologist Name Role Phone Winston Villatoro OD Unavailable [phone] Denise Woodson Ra, APRN WARD HELPER Unavailable + [phone] Denise Woodson Ra, APRN WARD HELPER Primary Care Provid er Usha Simon APRN WARD HELPER Unavailable +- [phone] Dangelo Salinas MD Unavailable Reason for Visit * Rehab Therapy Integrated Services (Routine) - Authorized Specialty Diagnoses / Procedures Referred By Nila shah Referred To Contact Diagnoses Cerebrovascular accident (CVA), unspecified mechanism (H) [address] [address] Referral ID Status Reason Start Date Expiration Date V isits Requested Visits Authorized [id number] Authorized 09/16/2023 09/15/2024 365 365 Encounter Details Date Type Department Care Team (Late st Contact Info) Description 02/03/2024 8:45 AM CDT Therapy Visit [address] [address] Denise Woodson Ra, BAKERY TEAM LEADER WARD HELPER [address] [place] [address] Addis Rojas, PT [facility] [address] [place] [address] Cerebrovascular accident (CVA), unspecified mechanism [...] Visit [facility] [address] [place] [address] Denise Woodson Ra, BARRERA WARD HELPER [address] [place] [address] documented as of this encounter Visit Diagnoses Diagnosis Cerebrovascular accident (CVA), unspecified mechanism (H)- Primary documented in this encounter Additional Health Concerns Assessment Noted Time PHQ-9 Depression Total Score: 0 06/23/20 21 4:11 PM CDT documented as of this encounter Care Teams Trichologist Relationship Specialty Start Date End Date Winston Villatoro OD [facility] [place] 701 [facility] [address] [place] [address] PCP - Ophthalmology Ophthalmology 02/11/13 Denise Woodson Ra, APRN WARD HELPER [address] [place] [address] PCP - General Family Practice 09/21/20 Denise Woodson Ra, APRN WARD HELPER [address] [place] [address] Assigned PCP 07/17/20 Usha Simon APRN WARD HELPER 9 [facility]121[place] [address] Nurse Practitioner Neurological Surgery 01/24/24 Dangelo Salinas MD [address] [place] [address] Neurology 01/27/24 documented as of this encounter
--- OUTSIDE RECORDS SUMMARY | 2024-05-07 18:48 | XMS_ITS | Encounter Summary ---
Author Organization [place] Address [address] [place] [address]. [place] [address] Care Team Providers Care Benefit Director Name Role Phone Winston Villatoro OD Unavailable [phone] Denise Woodson Ra, APRN TRAFFIC SERGEANT Unavailable +- [phone] Denise Woodson Ra, APRN TRAFFIC SERGEANT Primary Care Provid er Usha Simon APRN TRAFFIC SERGEANT Unavailable +- [phone] Dangelo Salinas MD Unavailable Encounter Details Date Type Department Care Team (Late st Contact Info) Description 02/05/2024 [facility] Neurosurgery Clinic [address] [place] [address] Robin Zepeda MD [address] [place] [address] [id number] [place] [address] Social History Tobacco Use Types [...] encounter Miscellaneous Notes * Telephone Encounter - Mel Perez - 02/05/2024 1:42 PM CDT Called patient and scheduled appointment w/ Dr. Zepeda via task. -KB documented in this encounter Plan of Treatment Upcoming Encounters Date Type Department Care Team (Late st Contact Info) Description 06/08/2024 8:30 AM CDT Office Visit [facility] [address] [address] [place] [address] Denise Woodson Ra, BARRERA TRAFFIC SERGEANT [address] [place] [address] documented as of this encounter Visit Diagnoses Not on filedocumented in this encounter Additional Health Concerns Assessment Noted Time PHQ-9 Depression Total Score: 14 024 9:33 AM CDT documented as of this encounter Care Teams Benefit Director Relationship Specialty Start Date End Date Winston Villatoro OD [facility] [place] 701 [facility] [address] [place] [address] PCP - Ophthalmology Ophthalmology 02/11/13 Denise Woodson Ra, BARRERA TRAFFIC SERGEANT [address] [place] [address] PCP - General Family Practice 09/21/20 Denise Woodson Ra, APRN TRAFFIC SERGEANT [address] [place] [address] Assigned PCP 11/1/20 Usha Simon APRN TRAFFIC SERGEANT 909 [facility]121[place] [address] Nurse Practitioner Neurological Surgery 01/24/24 Dangelo Salinas MD [address] [place], [place] [address] Neurology 01/27/24 documented as of this encounter
--- OUTSIDE RECORDS SUMMARY | 2024-05-07 18:48 | XMS_ITS | Encounter Summary ---
Author Organization [place] Address [address] [place] [address]. [place] [address] Care Team Providers Care Sheet Rock Applier Name Role Phone ShaunaWinston OD Unavailable [phone] Denise Woodson Ra, APRN HOME CARE SCHEDULER Unavailable + [phone] Denise Woodson Ra FORENSIC PHOTOGRAPHER HOME CARE SCHEDULER Primary Care Provid er Usha Simon APRN HOME CARE SCHEDULER Unavailable +- [phone] Dangelo Salinas MD Unavailable Encounter Details Date [...] Description 06/08/2024 8:30 AM CDT Office Visit [facility] [address] [place] [address] Denise Woodson Ra, FORENSIC PHOTOGRAPHER HOME CARE SCHEDULER [address] [place] [address] documented as of this encounter Visit Diagnoses Not on filedocumented in this encounter Additional Health Concerns Assessment Noted Time PHQ-9 Depression Total Score: 15 02/03/ 024 10:47 AM CDT documented as of this encounter Care Teams Sheet Rock Applier Relationship Specialty Start Date End Date Winston Villatoro OD [facility] [place] [address] [place] [address] PCP - Ophthalmology Ophthalmology 02/11/13 Denise Woodson Ra, APRN HOME CARE SCHEDULER [address] [place] [address] PCP - General Family Practice 09/21/20 Denise Woodson Ra, APRN HOME CARE SCHEDULER [address] [place] [address] Assigned PCP 07/17/20 Usha Simon APRN HOME CARE SCHEDULER 9 [facility]121[place] [address] Nurse Practitioner Neurological Surgery 01/24/24 Dangelo Salinas MD [address] [place], [place] [address] Neurology 01/27/24 documented as of this encounter
--- OUTSIDE RECORDS SUMMARY | 2024-05-07 18:48 | XMS_ITS | Encounter Summary ---
Author Organization [place] Address [address] [place] [address] Care Team Providers Care Fisheries Technical Officer Name Role Phone Winston Villatoro OD Unavailable [phone] Denise Woodson Ra, APRN QUALITY COMPLIANCE COORDINATOR Unavailable + [phone] Denise Woodson Ra TOUCHER UP QUALITY COMPLIANCE COORDINATOR Primary Care Provid er Usha Simon APRN QUALITY COMPLIANCE COORDINATOR Unavailable + [phone] Dangelo Salinas MD Unavailable Usha Simon APRN QUALITY COMPLIANCE COORDINATOR Unavailable +- [phone] Anastasia Stearns RN Unavailable [phone] Reason for Referral * Mental Health Outpatient (Urgent: 3-5 Days) - Pending Review Specialty Diagnoses / Procedures Referred By Contac t Referred To Contact Behavioral Health Diagnoses History of seizure Cerebrovascular accident (CVA), unspecified mechanism (H) Depression, unspecified depression type Raul Hoyos MD [address] [place] [address] [id number] [place] [address] Referral ID Status Reason Start Date Expiration Date V isits Requested Visits Authorized [id number] Pending Review 02/04/2024 02/03/2025 1 1 Question Answer Services: Assess/Evaluate for appropriate service (non-medication assessment) My Clinical Question Is: Patient scored high on PHQ-9 Scheduling Instructions: [facility] will call you to coordinate your care as prescribed by your provider. If you don't hear from a bilingual call center representative within 2 business days, please [...] plan with any benefit or coverage questions. [facility] will call you to coordinate your care as prescribed by your provider. If you don't hear from a bilingual call center representative within 2 business days, please call . Reason for Visit * Reason Comments Consult * Consultation (Routine: Next available opening) - Pending Review Specialty Diagnoses / Procedures Referred By Contac t Referred To Contact Diagnoses Seizure-like activity (H) History of seizure Cerebrovascular accident (CVA), unspecified mechanism (H) Delisa Manuel MD [address] [place] [address] Referral ID Status Reason Start Date Expiration Date V isits Requested Visits Authorized [id number] Pending Review 01/22/2024 01/21/2025 1 1 Encounter Details Date Type Department Care Team ([facility] Contact Info) Description 02/04/2024 11:00 AM CDT Virtual Visit [facility] Neurology Clinic [address] [place] [address] [place] [address] Raul Hoyos MD [address] [place] [address] [id number] [place] [address] Depression, unspecified depression type (Primary Dx); Seizure-like [...] 11:00 AM CDT Patient [facility] go to [facility] ER Stroke & Endovascular RN Care Coordinators: Stacey Kelley RN, BSN Meche De La Cruz RN, CNRN, SCRN If you have any questions please contact the RN Care Coordinators at [phone], option 1. Thank you for choosing [facility] for your health care needs. documented in this encounter Progress Notes * Raul Hoyos MD - 02/04/2024 11:00 AM CDT Virtual Visit Details Type of service: Video Visit Originating Location (pt. Location): Home Distant Location (provider location): Off-site Platform used for Video Visit: AmAbran * Raul Hoyos MD - 02/04/2024 11:00 AM CDT [facility] [address] FLOOR [facility] [address] February 04, 2024 Alcon Zamora [address] [facility] [address] VIDEO VISIT and Documentation and coordination = [...] s he will come to [facility] and this note is for care coordination. Will be addended further later. ADDENDUM Placed mental health business process coordinator referral as well due to high PHQ-9. [...] patient encounters technical issues they should call [phone]) How would you like to obtain [...] with Dr. Hoyos - sending patient to [facility] ED with new stoke symptoms ongoing since Saturday - difficulty walking, worsened coordination and balance. Enitre left side numbness/altered sensation on left. Patients friend will transport patient. Called ED beading machine operatorMarii, and informed of above. Meche De La Cruz RN 02/04/2024 11:43 AM documented in this encounter Plan of Treatment Upcoming Encounters Date Type Department Care Team (Late st Contact Info) Description 06/08/2024 8:30 AM CDT Office Visit [facility] [address] [facility] [place] [address] Denise Woodson Ra, APRN QUALITY COMPLIANCE COORDINATOR [address] [place] [address] Scheduled Referrals Name Type Priority Associated Diagnoses Orde r Schedule Adult Mental Health Tour Narrator Referral Referral Urgent: 3-5 Days History of [...] documented as of this encounter Care Teams Fisheries Technical Officer Relationship Specialty Start Date End Date Winston Villatoro OD [facility] [place] [address] [facility] [address] [place] [address] PCP - Ophthalmology Ophthalmology 02/11/13 Denise Woodson Ra, APRN QUALITY COMPLIANCE COORDINATOR [address] [place] [address] PCP - General Family Practice 09/21/20 Denise Woodson Ra, APRN QUALITY COMPLIANCE COORDINATOR [address] [facility] [place] [address] Assigned PCP 07/17/20 Usha Simon APRN QUALITY COMPLIANCE COORDINATOR [address] [place] [address] [address] Nurse Practitioner Neurological Surgery 01/24/24 Dangelo Salinas MD [address] [place] [address] Neurology 01/27/24 Usha Simon APRN QUALITY COMPLIANCE COORDINATOR 9 [facility] [address] Assigned Neuroscience Provider 02/06/24 03/07/24 Anastasia Stearns, GEMA Lead Computer Numerical Control Machinist 02/06/24 documented as of this encounter
--- OUTSIDE RECORDS SUMMARY | 2024-05-07 18:49 | XMS_ITS | Encounter Summary ---
Author Organization [place] Address [address] [place] [address] Care Team Providers Care Garment Tag Stringer Name Role Phone Yung Madrigal MD Unavailable Unavailable Winston Villatoro OD Unavailable [phone] Serum, Clara Garland MD Primary Care Provider Serum, Clara Garland MD Unavailable [phone] Denise Woodson Ra FUR DRESSER RADIATION PHYSICIST Unavailable + [phone] Denise Woodson Ra FUR DRESSER RADIATION PHYSICIST Primary Care Provid er Usha Simon APRN RADIATION PHYSICIST Unavailable [phone] Dangelo Salinas MD Unavailable Usha Simon FUR DRESSER RADIATION PHYSICIST Unavailable +- [phone] Anastasia Stearns RN Unavailable [phone] Germaine Lopez CHW Unavailable [phone] Robin Zepeda MD Unavailable [phone] Encounter Details Date Type Department Care Team (Late st Contact Info) Description 06/16/2019 [facility] [address] [facility] [address] [place] [address] Serum, Clara Garland MD [address] [place] [address] Social History Tobacco Use Types [...] Description 06/08/2024 8:30 AM CDT Office Visit [facility] [address] [place] [address] Denise Woodson Ra, FUR DRESSER RADIATION PHYSICIST [address] [place] [place], [place] [address] documented as of this encounter Visit Diagnoses Not on filedocumented in this encounter Additional Health Concerns Assessment Noted Time PHQ-9 Depression Total Score: 0 06/15/20 19 7:09 PM CDT documented as of this encounter Care Teams Garment Tag Stringer Relationship Specialty Start Date End Date Yung Madrigal MD RETIRED PCP - Orthopaedics Orthopedics 08/26/12 01/20/24 Winston Villatoro OD [facility] [place] [address] [place] [address] PCP - Ophthalmology Ophthalmology 02/11/13 Clara Cornell MD [facility] [place] [address] [place] [address] PCP - General Internal Medicine 02/07/17 09/20/20 Denise Woodson Ra, FUR DRESSER RADIATION PHYSICIST [address] [place] [address] PCP - General Family Practice 09/21/20 Clara Cornell MD [address] [place] [address] Assigned PCP 01/17/17 07/16/20 Denise Woodson Ra, APRN RADIATION PHYSICIST [address] [address] [facility] [place] [address] Assigned PCP 07/17/20 Usha Simon APRN RADIATION PHYSICIST [address] [address] Nurse Practitioner Neurological Surgery 01/24/24 Dangelo Salinas MD [address] [place] [address] Neurology 01/27/24 Usha Simon APRN RADIATION PHYSICIST [address] [address] Assigned Neuroscience Provider 02/06/24 03/07/24 Anastasia Stearns, RN Lead Sap Portal Developer 02/06/24 Germaine Lopez, CHW Community Health Worker Primary Care - CC 02/18/24 Robin Zepeda MD [address] [address] Assigned Neuroscience Provider 03/08/24 documented as of this encounter
--- OUTSIDE RECORDS SUMMARY | 2024-05-07 18:49 | XMS_ITS | Encounter Summary ---
Author Organization [facility] Address [address] [place] [address] Care Team Providers Care Rn Obgyn Name Role Phone Yung Madrigal MD Unavailable Unavailable Winston Villatoro OD Unavailable Serum, Clara Garland MD Primary Care Provider Serum, Clara Garland MD Unavailable [phone] Denise Woodson Ra COMPENSATION CONSULTANT RECREATIONAL THERAPIST Unavailable +- [phone] Denise Woodson Ra COMPENSATION CONSULTANT RECREATIONAL THERAPIST Primary Care Provid er Usha Simon APRN RECREATIONAL THERAPIST Unavailable [phone] Dangelo Salinas MD Unavailable Usha Simon COMPENSATION CONSULTANT RECREATIONAL THERAPIST Unavailable +[phone] Anastasia Stearns RN Unavailable [phone] Germaine Lopez CHW Unavailable [phone] Robin Zepeda MD Unavailable [phone] Encounter Details Date Type Department Care Team (Late st Contact Info) Description 01/21/[address] [place] [address] Phoebe Del Cid Social History [...] Description 06/08/2024 8:30 AM CDT Office Visit [facility] [address] [place] [address] Denise Woodson Ra, COMPENSATION CONSULTANT RECREATIONAL THERAPIST [address] [place] [address] documented as of this encounter Visit Diagnoses Not on filedocumented in this encounter Additional Health Concerns Assessment Noted Time PHQ-9 Depression Total Score: 0 02/09/20 17 7:29 AM CDT documented as of this encounter Care Teams Rn Obgyn Relationship Specialty Start Date End Date Yung Madrigal MD RETIRED PCP - Orthopaedics Orthopedics 08/26/12 01/20/24 Winston Villatoro OD [facility] [place] [address] [place] [address] PCP - Ophthalmology Ophthalmology 02/11/13 Clara Cornell MD [facility] [place] [address] [place] [address] PCP - General Internal Medicine 02/07/17 09/20/20 Denise Woodson Ra, COMPENSATION CONSULTANT RECREATIONAL THERAPIST [address] [place] [address] PCP - General Family Practice 09/21/20 Clara Cornell MD [address]75 [place] [address] Assigned PCP 01/17/17 07/16/20 Denise Woodson Ra, APRN RECREATIONAL THERAPIST [address] [place] [address] Assigned PCP 07/17/20 Usha Simon APRN RECREATIONAL THERAPIST [address] 859545 Nurse Practitioner Neurological Surgery 01/24/24 Dangelo Salinas MD [address] [place] [address] Neurology 01/27/24 Usha Simon APRN RECREATIONAL THERAPIST [address] [place] [address] 936795 Assigned Neuroscience Provider 02/06/24 03/07/24 Anastasia Stearns, RN Lead Director Of Front Office 02/06/24 Germaine Lopez, W Community Health Worker Primary Care - CC 02/18/24 Robin Zepeda MD [address] 785645 Assigned Neuroscience Provider 03/08/24 documented as of this encounter
--- OUTSIDE RECORDS SUMMARY | 2024-05-07 18:49 | XMS_ITS | Encounter Summary ---
Author Organization [place] [facility] Address [address] [place] [address]. [place] [address] Care Team Providers Care Ambulance Officer Name Role Phone Yung Madrigal MD Unavailable Unavailable Winston Villatoro OD Unavailable [phone] Denise Woodson Ra, APRN WALLPAPER PRINTER Unavailable + [phone] Denise Woodson Ra, APRN WALLPAPER PRINTER Primary Care Provid er Usha Simon APRN WALLPAPER PRINTER Unavailable +- [phone] Dangelo Salinas MD Unavailable Usha Simon APRN WALLPAPER PRINTER Unavailable + [phone] Anastasia Stearns RN Unavailable +[phone] Germaine Lopze CHW Unavailable +[phone] Robin Zepeda MD Unavailable +[phone] Reason for Visit * Reason Onset Date Comments MyChart Communication 06/08/2021 Abdominal pain Encounter Details Date Type Department Care Team (Late st Contact Info) Description 06/08/2021 MyC Medical Advice [facility] [address] [place] [address] Denise Woodson Ra, APRN WALLPAPER PRINTER [address] [place] [address] MyChart Communication (Abdominal pain) Social [...] Description 06/08/2024 8:30 AM CDT Office Visit [facility] [address] [place] [address] Denise Woodson Ra, BARRERA WALLPAPER PRINTER [address] [facility] [facility] [id number] documented as of this encounter Visit Diagnoses Not on filedocumented in this encounter Additional Health Concerns Assessment Noted Time PHQ-9 Depression Total Score: 0 01/05/20 9:31 AM CDT documented as of this encounter Care Teams Ambulance Officer Relationship Specialty Start Date End Date Yung Madrigal MD RETIRED PCP - Orthopaedics Orthopedics 08/26/12 01/20/24 Winston Villatoro OD [facility] 701 [facility] [address] [place] [address] PCP - Ophthalmology Ophthalmology 02/11/13 Denise Woodson Ra, APRN WALLPAPER PRINTER [address] [place] [address] PCP - General Family Practice 09/21/20 Denise Woodson Ra, APRN WALLPAPER PRINTER [address] [place] [address] Assigned PCP 07/17/20 Usha Simon APRN WALLPAPER PRINTER [address] [place] [address] [address] Nurse Practitioner Neurological Surgery 01/24/24 Dangelo Salinas MD [address] [place] [address] Neurology 01/27/24 Usha Simon APRN WALLPAPER PRINTER [address] [address] Assigned Neuroscience Provider 02/06/24 03/07/24 Anastasia Stearns, RN Lead Bulk Filler 02/06/24 Germaine Lopez, W Community Health Worker Primary Care - CC 02/18/24 Robin Zepeda MD [address] [address] Assigned Neuroscience Provider 03/08/24 documented as of this encounter
--- OUTSIDE RECORDS SUMMARY | 2024-05-07 18:49 | XMS_ITS | Encounter Summary ---
Author Organization [facility] Address [address] [place] [address] Care Team Providers Care Taxi Dancer Name Role Phone Yung Madrigal MD Unavailable Unavailable Winston Villatoro OD Unavailable +[phone] Denise Woodson Ra, APRN AUTO PORTER Unavailable + [phone] Denise Woodson Ra FIRE PRODUCTION OPERATOR AUTO PORTER Primary Care Provid er Usha Simon FIRE PRODUCTION OPERATOR AUTO PORTER Unavailable + [phone] Dangelo Salinas MD Unavailable Usha Simon APRN AUTO PORTER Unavailable + [phone] Anastasia Stearns RN Unavailable +[phone] Germaine Lopez CHW Unavailable +[phone] Robin Zepead MD Unavailable +[phone] Encounter Details Date Type Department Care Team (Late st Contact Info) Description 01/22/2022 [facility] Medical Advice [facility] [address] [place] [address] Angelo Escobar Social History Tobacco [...] Description 06/08/2024 8:30 AM CDT [facility] [address] [place] [address] Denise Woodson Ra, APRN AUTO PORTER [address] [facility] [place] [address] documented as of this encounter Visit Diagnoses Not on filedocumented in this encounter Additional Health Concerns Assessment Noted Time PHQ-9 Depression Total Score: 0 06/23/20 21 4:11 PM CDT documented as of this encounter Care Teams Taxi Dancer Relationship Specialty Start Date End Date Yung Madrigal MD RETIRED PCP - Orthopaedics Orthopedics 08/26/12 01/20/24 Winston Villatoro OD [facility] [place] [address] [facility] [address] [place] [address] PCP - Ophthalmology Ophthalmology 02/11/13 Denise Woodson Ra, APRN AUTO PORTER [address] [place] [address] PCP - General Family Practice 09/21/20 Denise Woodson Ra, APRN AUTO PORTER [address] [place] [address] Assigned PCP 07/17/20 Usha Simon APRN AUTO PORTER [address] [place] [address] [address] Nurse Practitioner Neurological Surgery 01/24/24 Dangelo Salinas MD [address] [place] [address] Neurology 01/27/24 Usha Simon APRN AUTO PORTER 9 [facility] [address] Assigned Neuroscience Provider 02/06/24 03/07/24 Anastasia Stearns, RN Lead Pull Tab Dealer 02/06/24 Germaine Lopez, [facility] Community Health Worker Primary Care - CC 02/18/24 Robin Zepeda MD [address] [address] Assigned Neuroscience Provider 03/08/24 documented as of this encounter
--- OUTSIDE RECORDS SUMMARY | 2024-05-07 18:49 | XMS_ITS | Encounter Summary ---
Author Organization [facility] Address [address] [place] [address] Care Team Providers Care Land Clearer Name Role Phone Winston Villatoro OD Unavailable +[phone] Denise Woodson Ra, APRN DATE NIGHT SITTER Unavailable + [phone] Denise Woodson Ra CAMERA MAKER DATE NIGHT SITTER Primary Care Provid er Usha Simon APRN DATE NIGHT SITTER Unavailable Dangelo Salinas MD Unavailable Usha Simon APRN DATE NIGHT SITTER Unavailable +- [phone] Anastasia Stearns RN Unavailable +-[phone] Germaine Lopez CHW Unavailable +[phone] Robin Zepeda MD Unavailable +[phone] Encounter Details Date Type Department Care Team (Late st Contact Info) Description 01/27/2024 [facility] [address] 3[address] [place] [address] Phoebe Del Cid Social History Tobacco Use [...] AM CDT Office Visit [facility] [address] [address] [address] Denise Woodson Ra, APRN DATE NIGHT SITTER [address] [place] [address] documented as of this encounter Visit Diagnoses Not on filedocumented in this encounter Additional Health Concerns Assessment Noted Time PHQ-9 Depression Total Score: 0 06/23/20 21 4:11 PM CDT documented as of this encounter Care Teams Land Clearer Relationship Specialty Start Date End Date ShaunaWinston OD [facility] [place] [address] [place] [address] PCP - Ophthalmology Ophthalmology 02/11/13 Denise Woodson Ra, APRN DATE NIGHT SITTER [address] [place] [address] PCP - General Family Practice 09/21/20 Denise Woodson Ra, APRN DATE NIGHT SITTER [address] [place] [address] Assigned PCP 07/17/20 Usha Simon APRN DATE NIGHT SITTER 909 [facility] [id number] [place] [address] Nurse Practitioner Neurological Surgery 01/24/24 Dangelo Salinas MD [address] [place] [address] Neurology 01/27/24 Usha Simon APRN DATE NIGHT SITTER 909 [facility]121CJ [place] [address] Assigned Neuroscience Provider 02/06/24 03/07/24 Anastasia Stearns, RN Lead Coverage Analyst 02/06/24 Germaine Lopez, W Community Health Worker Primary Care - CC 02/18/24 Robin Zepeda MD 909 [facility]121[place] [address] Assigned Neuroscience Provider 03/08/24 documented as of this encounter
--- OUTSIDE RECORDS SUMMARY | 2024-05-07 18:49 | XMS_ITS | Encounter Summary ---
Author Organization [facility] Address [address] [place] [address]. [place] [address] Care Team Providers Care Escape Wheel Tooth Cutter Name Role Phone Yung Madrigal MD Unavailable Unavailable Winston Villatoro OD Unavailable [phone] Denise Woodosn Ra, APRN LIVESTOCK COUNTER Unavailable +- [phone] Denise Woodson Ra GENETIC SCIENTIST LIVESTOCK COUNTER Primary Care Provid er Usha Simon APRN LIVESTOCK COUNTER Unavailable +- [phone] Dangelo Salinas MD Unavailable Usha Simon APRN LIVESTOCK COUNTER Unavailable + [phone] Anastasia Stearns RN Unavailable +[phone] Germaine Lopez CHW Unavailable [phone] Robin Zepeda MD Unavailable +[phone] Encounter Details Date Type Department Care Team (Late st Contact Info) Description 06/13/2021 [facility] Medical Advice [facility] [address] [place] [address] Denise Woodson Ra, APRN LIVESTOCK COUNTER [address] [place] [address] Insomnia, unspecified type Social History [...] a refill on file. Prescription approved per [facility] protocol. Mary Caraballo RN on 06/13/2021 at 5:18 PM documented in this encounter Plan of Treatment Upcoming Encounters Date Type Department Care Team (Late st Contact Info) Description 06/08/2024 8:30 AM CDT Office Visit [facility] [address] [place] [address] Denise Woodson Ra, GENETIC SCIENTIST LIVESTOCK COUNTER [address] [place], [place] 6113268 documented as of this encounter Visit Diagnoses Diagnosis Insomnia, unspecified type documented in this encounter Additional Health Concerns Assessment Noted Time PHQ-9 Depression Total Score: 0 01/05/20 9:31 AM CDT documented as of this encounter Care Teams Escape Wheel Tooth Cutter Relationship Specialty Start Date End Date Yung Madrigal MD RETIRED PCP - Orthopaedics Orthopedics 08/26/12 01/20/24 Winston Villatoro OD [facility] [place] [address] [place] [address] PCP - Ophthalmology Ophthalmology 02/11/13 Denise Woodson Ra, APRN LIVESTOCK COUNTER [address] [place], [place] 86279[address] PCP - General Family Practice 09/21/20 Denise Woodson Ra, APRN LIVESTOCK COUNTER [address] [place] [address] Assigned PCP 07/17/20 Usha Simon APRN LIVESTOCK COUNTER [address] 958465 Nurse Practitioner Neurological Surgery 01/24/24 Dangelo Salinas MD [address] [place] [address] Neurology 01/27/24 Usha Simon APRN LIVESTOCK COUNTER [address] 464445 Assigned Neuroscience Provider 02/06/24 03/07/24 Anastasia Stearns, RN Lead Receiving Dock Checker 02/06/24 Germaine Lopez, W Community Health Worker Primary Care - CC 02/18/24 Robin Zepeda MD [address] 083685 Assigned Neuroscience Provider 03/08/24 documented as of this encounter
--- OUTSIDE RECORDS SUMMARY | 2024-05-07 18:49 | XMS_ITS | Encounter Summary ---
Author Organization [facility] Address [address] [place] [address] Care Team Providers Care Marbleizing Machine Tender Name Role Phone Yung Madrigal MD Unavailable Unavailable Winston Villatoro OD Unavailable [phone] Denise Woodson Ra, APRN FIELD REPRESENTATIVE/HEALTH EDUCATION Unavailable + [phone] Denise Woodson Ra OIL AND GAS PRINCIPAL FIELD REPRESENTATIVE/HEALTH EDUCATION Primary Care Provid er Usha Simon APRN FIELD REPRESENTATIVE/HEALTH EDUCATION Unavailable + [phone] Dangelo Salinas MD Unavailable Usha Simon APRN FIELD REPRESENTATIVE/HEALTH EDUCATION Unavailable + [phone] Anastasia Stearns RN Unavailable +[phone] Germaine Lopez CHW Unavailable [phone] Robin Zepeda MD Unavailable [phone] Encounter Details Date Type Department Care Team (Late st Contact Info) Description 12/30/2020 [facility] Medical Advice [facility] [address] [place] [address] Jessica Phipps, SUBMARINE ELEMENT COORDINATOR Social History Tobacco Use Types Packs/Day Years [...] 06/08/2024 8:30 AM CDT [facility] [address] [place] [address] Denise Woodson Ra, OIL AND GAS PRINCIPAL FIELD REPRESENTATIVE/HEALTH EDUCATION [address] [place] 883[address] documented as of this encounter Visit Diagnoses Not on filedocumented in this encounter Additional Health Concerns Assessment Noted Time PHQ-9 Depression Total Score: 0 06/15/20 19 7:09 PM CDT documented as of this encounter Care Teams Marbleizing Machine Tender Relationship Specialty Start Date End Date Yung Madrigal MD RETIRED PCP - Orthopaedics Orthopedics 08/26/12 01/20/24 Winston Villatoro OD [facility] [address] [facility] [address] [place] [address] PCP - Ophthalmology Ophthalmology 02/11/13 Denise Woodson Ra, APRN FIELD REPRESENTATIVE/HEALTH EDUCATION [address] [place] [address] PCP - General Family Practice 09/21/20 Denise Woodson Ra, APRN FIELD REPRESENTATIVE/HEALTH EDUCATION [address] [place] [address] Assigned PCP 07/17/20 Usha Simon APRN FIELD REPRESENTATIVE/HEALTH EDUCATION 909 [facility]121[place], [place] [address] Nurse Practitioner Neurological Surgery 01/24/24 Dangelo Salinas MD [address] [place] [address] Neurology 01/27/24 Usha Simon APRN FIELD REPRESENTATIVE/HEALTH EDUCATION [address] 590835 Assigned Neuroscience Provider 02/06/24 03/07/24 Anastasia Stearns, RN Lead Drafting Detailer 02/06/24 Germaine Lopez, W Community Health Worker Primary Care - CC 02/18/24 Robin Zepeda MD [address] 366725 Assigned Neuroscience Provider 03/08/24 documented as of this encounter
--- OUTSIDE RECORDS SUMMARY | 2024-05-07 18:49 | XMS_ITS | Encounter Summary ---
Author Organization [facility] Address [address] [place] [address]. [place] [address] Care Team Providers Care A R Collections Rep Name Role Phone Yung Madrigal MD Unavailable Unavailable Winston Villatoro OD Unavailable [phone] Denise Woodson Ra, APRN MANAGER PHARMACY Unavailable + [phone] Denise Woodson Ra, APRN MANAGER PHARMACY Primary Care Provid er Usha Simon APRN MANAGER PHARMACY Unavailable +- [phone] Dangelo Salinas MD Unavailable Usha Simon APRN MANAGER PHARMACY Unavailable + [phone] Anastasia Stearns RN Unavailable +[phone] Germaine Lopez CHW Unavailable [phone] Robin Zepeda MD Unavailable [phone] Reason for Visit * Reason Comments Medication Refill Encounter Details Date Type Department Care Team (Late st Contact Info) Description 02/19/2022 Refill [facility] [address] [place] [address] Denise Woodson Ra, APRN MANAGER PHARMACY [address] [place] [address] Medication Refill Social History Tobacco [...] Description 06/08/2024 8:30 AM CDT Office Visit [facility] [address] [facility] [place] [address] Denise Woodson Ra, DESKTOP ARCHITECT MANAGER PHARMACY [address] [place], [place] 7071668 documented as of this encounter Visit Diagnoses Diagnosis Moderate persistent asthma without complication Unspecified asthma documented in this encounter Additional Health Concerns Assessment Noted Time PHQ-9 Depression Total Score: 0 06/23/20 21 4:11 PM CDT documented as of this encounter Care Teams A R Collections Rep Relationship Specialty Start Date End Date Yung Madrigal MD RETIRED PCP - Orthopaedics Orthopedics 08/26/12 01/20/24 Winston Villatoro OD [facility] [place] [address] [place] [address] PCP - Ophthalmology Ophthalmology 02/11/13 Denise Woodson Ra, DESKTOP ARCHITECT MANAGER PHARMACY [address] [facility] [place] [address] PCP - General Family Practice 09/21/20 Denise Woodson Ra, APRN MANAGER PHARMACY [address] [place] [address] Assigned PCP 07/17/20 Usha Simon APRN MANAGER PHARMACY [address] [address] Nurse Practitioner Neurological Surgery 01/24/24 Dangelo Salinas MD [address] [place] [address] Neurology 01/27/24 Usha Simon APRN MANAGER PHARMACY [address] [address] Assigned Neuroscience Provider 02/06/24 03/07/24 Anastasia Stearns, RN Lead Case Management Assistant 02/06/24 Germaine Lopez, W Community Health Worker Primary Care - CC 02/18/24 Robin Zepeda MD [address] [address] Assigned Neuroscience Provider 03/08/24 documented as of this encounter
--- OUTSIDE RECORDS SUMMARY | 2024-05-07 18:49 | XMS_ITS | Encounter Summary ---
Author Organization [facility] Address [address] [place] [address] Care Team Providers Care Cake Decorator Name Role Phone Yung Madrigal MD Unavailable Unavailable Winston Villatoro OD Unavailable +[phone] Denise Woodson Ra, APRN AUTOMATIC DEVELOPER Unavailable +- [phone] Denise Woodson Ra, APRN AUTOMATIC DEVELOPER Primary Care Provid er Usha Simon APRN AUTOMATIC DEVELOPER Unavailable +- [phone] Dangelo Salinas MD Unavailable Usha Simon APRN AUTOMATIC DEVELOPER Unavailable +- [phone] Anastasia Stearns RN Unavailable +[phone] Germaine Lopez CHW Unavailable [phone] Robin Zepeda MD Unavailable +[phone] Reason for Visit * Reason Onset Date Comments Medication Request 04/20/2021 escitalopram (LEXAPRO) 10 MG tablet Encounter Details Date Type Department Care Team (Late st Contact Info) Description 04/20/2021 [facility] [address] [place] [address] Denise Woodson Ra, APRN AUTOMATIC DEVELOPER [address] [place] [address] Medication Request (escitalopram (LEXAPRO)... Social [...] 8:30 AM CDT Office Visit [facility] [address] [facility] [place] [address] Denise Woodson Ra, BARRERA AUTOMATIC DEVELOPER [address] [place] [address] documented as of this encounter Visit Diagnoses Diagnosis Generalized anxiety disorder Mild recurrent major depression (H24) Major depressive disorder, recurrent episode, mild documented in this encounter Additional Health Concerns Assessment Noted Time PHQ-9 Depression Total Score: 0 01/05/20 21 9:31 AM CDT documented as of this encounter Care Teams Cake Decorator Relationship Specialty Start Date End Date Yung Madrigal MD RETIRED PCP - Orthopaedics Orthopedics 08/26/12 01/20/24 Winston Villatoro OD [facility] [place] [address] [facility] [address] [place] [address] PCP - Ophthalmology Ophthalmology 02/11/13 Denise Woodson Ra, APRN AUTOMATIC DEVELOPER [address] [place] [place] [address] PCP - General Family Practice 09/21/20 Denise Woodson Ra, APRN AUTOMATIC DEVELOPER [address] [place] [address] Assigned PCP 07/17/20 Usha Simon APRN AUTOMATIC DEVELOPER [address] [address] Nurse Practitioner Neurological Surgery 01/24/24 Dangelo Salinas MD [address] [place], [place] [address] Neurology 01/27/24 Usha Simon APRN AUTOMATIC DEVELOPER [address] 718765 Assigned Neuroscience Provider 02/06/24 03/07/24 Anastasia Stearns RN Lead Mechanical Assembly Technician 02/06/24 Germaine Lopez, W Community Health Worker Primary Care - CC 02/18/24 Robin Zepeda MD [address] 703165 Assigned Neuroscience Provider 03/08/24 documented as of this encounter
--- OUTSIDE RECORDS SUMMARY | 2024-05-07 18:49 | XMS_ITS | Encounter Summary ---
Author Organization [place] Address [address] [place] [address] Care Team Providers Care Bench Mechanic Name Role Phone Winston Villatoro OD Unavailable [phone] Denise Woodson Ra, APRN DESIGNATED BROKER Unavailable +- [phone] Denise Woodson Ra LACQUER COATER DESIGNATED BROKER Primary Care Provid er Usha Simon APRN DESIGNATED BROKER Unavailable +- [phone] Dangelo Salinas MD Unavailable Usha Simon APRN DESIGNATED BROKER Unavailable +- [phone] Anastasia Stearns RN Unavailable +[phone] Germaine Lopez CHW Unavailable +[phone] Robin Zepeda MD Unavailable +[phone] Encounter Details Date Type Department Care Team (Late st Contact Info) Description 01/29/2024 [facility] Medical Advice [address] [address] Danya Restrepo, PALLETIZER OPERATOR Social History Tobacco Use Types Packs/Day Years [...] Description 06/08/2024 8:30 AM CDT Office Visit [facility] [address] [place] [address] Denise Woodson Ra, APRN DESIGNATED BROKER [address] [place] [address] documented as of this encounter Visit Diagnoses Not on filedocumented in this encounter Additional Health Concerns Assessment Noted Time PHQ-9 Depression Total Score: 0 06/23/20 21 4:11 PM CDT documented as of this encounter Care Teams Bench Mechanic Relationship Specialty Start Date End Date Shauna Winstongabino Saez OD [facility] [place] [address] [place] [address] PCP - Ophthalmology Ophthalmology 02/11/13 Denise Woodson Ra, APRN DESIGNATED BROKER [address] [place] [address] PCP - General Family Practice 09/21/20 Denise Woodson Ra, APRN DESIGNATED BROKER [address] [place] [address] Assigned PCP 07/17/20 Usha Simon APRN DESIGNATED BROKER 909 [facility] [id number] [place] [address] Nurse Practitioner Neurological Surgery 01/24/24 Dangelo Salinas MD [address] [place] [address] Neurology 01/27/24 Usha Simon APRN DESIGNATED BROKER 909 [facility] [id number] [place] [address] Assigned Neuroscience Provider 02/06/24 03/07/24 Anastasia Stearns, RN Lead Pipe Turner 02/06/24 Germaine Lopez, W Community Health Worker Primary Care - CC 02/18/24 Robin Zepeda MD 909 [facility]121[address] [place] [address] Assigned Neuroscience Provider 03/08/24 documented as of this encounter
--- OUTSIDE RECORDS SUMMARY | 2024-05-07 18:49 | XMS_ITS | Encounter Summary ---
Author Organization [facility] Address [address] [place] [address]. [place] [address] Care Team Providers Care Phone Representative Name Role Phone Yung Madrigal MD Unavailable Unavailable Winston Villatoro OD Unavailable [phone] Denise Woodson Ra, APRN HOT ROLL LAMINATOR Unavailable + [phone] Denise Woodson Ra, APRN HOT ROLL LAMINATOR Primary Care Provid er Usha Simon APRN HOT ROLL LAMINATOR Unavailable +- [phone] Dangelo Salinas MD Unavailable Usha Simon APRN HOT ROLL LAMINATOR Unavailable + [phone] Anastasia Stearns RN Unavailable +[phone] Germaine Lopez CHW Unavailable [phone] Robin Zepeda MD Unavailable [phone] Reason for Visit * Reason Onset Date Comments URI 09/21/2020 Encounter Details Date Type Department Care Team (Late st Contact Info) Description 09/21/2020 [facility] Medical Advice [facility] [address] [place] [address] Denise Woodson Ra, APRN HOT ROLL LAMINATOR [address] [place] [address] URI Social History Tobacco Use [...] COVID-19? No / Unsure 09/21/2020 12:04 PM PRODUCTION AIDE documented as of this encounter Miscellaneous Notes * Telephone Encounter - Kati Yang RN - 09/21/2020 10:54 AM CST Qwikwire message sent to patient. Kati Yang RN UCTION AIDE documented in this encounter Plan of Treatment Upcoming Encounters Date Type Department Care Team (Late st Contact Info) Description 06/08/2024 8:30 AM CDT Office Visit [facility] [address] [place] [address] Denise Woodson Ra, HYDRAULIC MECHANIC HOT ROLL LAMINATOR [address] [place] [id number] documented as of this encounter Visit Diagnoses Not on filedocumented in this encounter Additional Health Concerns Assessment Noted Time PHQ-9 Depression Total Score: 0 06/15/20 19 7:09 PM CDT documented as of this encounter Care Teams Phone Representative Relationship Specialty Start Date End Date Yung Madrigal MD RETIRED PCP - Orthopaedics Orthopedics 08/26/12 01/20/24 Winston Villatoro OD [facility] [place] [address] [place] [id number] PCP - Ophthalmology Ophthalmology 02/11/13 Denise Woodson Ra, HYDRAULIC MECHANIC HOT ROLL LAMINATOR [address] [id number] PCP - General Family Practice 09/21/20 Denise Woodson Ra, APRN HOT ROLL LAMINATOR [address] [facility] [place] [address] Assigned PCP 07/17/20 Usha Simon APRN HOT ROLL LAMINATOR [address] 8[address] Nurse Practitioner Neurological Surgery 01/24/24 Dangelo Salinas MD [address] [place] [address] Neurology 01/27/24 Usha Simon APRN HOT ROLL LAMINATOR [address] [place] [address] [id number] Assigned Neuroscience Provider 02/06/24 03/07/24 Anastasia Stearns, RN Lead Deck Supervisor 02/06/24 Germaine Lopez, CHW Community Health Worker Primary Care - CC 02/18/24 Robin Zepeda MD [address] [address] Assigned Neuroscience Provider 03/08/24 documented as of this encounter
--- OUTSIDE RECORDS SUMMARY | 2024-05-07 18:49 | XMS_ITS | Encounter Summary ---
Author Organization [facility] Address [address] [place] [address]. [place] [address] Care Team Providers Care Analytical Research Chemist Name Role Phone Winston Villatoro Se OD Unavailable [phone] Denise Woodson Ra, APRN ASSOCIATE PROFESSOR OF SOCIOLOGY Unavailable + [phone] Denise Woodson Ra, APRN ASSOCIATE PROFESSOR OF SOCIOLOGY Primary Care Provid er Usha Simon APRN ASSOCIATE PROFESSOR OF SOCIOLOGY Unavailable + [phone] Dangelo Salinas MD Unavailable Encounter Details Date [...] CDT Office Visit [facility] [address] [place] [address] Denise Woodson Ra, APRN ASSOCIATE PROFESSOR OF SOCIOLOGY [address] [place] [address] documented as of this encounter Visit Diagnoses Not on filedocumented in this encounter Additional Health Concerns Assessment Noted Time PHQ-9 Depression Total Score: 0 06/23/20 21 4:11 PM CDT documented as of this encounter Care Teams Analytical Research Chemist Relationship Specialty Start Date End Date Winston Villatoro OD [facility] [place] [address] [place] [address] PCP - Ophthalmology Ophthalmology 02/11/13 Denise Woodson Ra, APRN ASSOCIATE PROFESSOR OF SOCIOLOGY [address] [place] [address] PCP - General Family Practice 09/21/20 Denise Woodson Ra, APRN ASSOCIATE PROFESSOR OF SOCIOLOGY [address] [place] [address] Assigned PCP 07/17/20 Usha Simon APRN ASSOCIATE PROFESSOR OF SOCIOLOGY 909 [facility] [id number] [address] Nurse Practitioner Neurological Surgery 01/24/24 Dangelo Salinas MD [address] [place] [address] Neurology 01/27/24 documented as of this encounter
--- OUTSIDE RECORDS SUMMARY | 2024-05-07 18:49 | XMS_ITS | Encounter Summary ---
Author Organization [facility] Address [address] [place] [address] Care Team Providers Care Photographic Lithographer Name Role Phone Winston Villatoro OD Unavailable [phone] Denise Woodson Ra, APRN INSULATOR HELPER Unavailable [phone] Denise Woodson Ra, APRN INSULATOR HELPER Primary Care Provid er Usha Simon APRN INSULATOR HELPER Unavailable [phone] Dangelo Salinas MD Unavailable Reason for Visit * Rehab Therapy Integrated Services (Routine) - Authorized Specialty Diagnoses / Procedures Referred By Nila shah Referred To Contact Diagnoses Cerebrovascular accident (CVA), unspecified mechanism (H) [address] [address] Referral ID Status Reason Start Date Expiration Date V isits Requested Visits Authorized [id number] Authorized 09/16/2023 09/15/2024 365 365 Encounter Details Date Type Department Care Team (Late st Contact Info) Description 01/30/2024 11:00 AM CDT Therapy Visit [address] [phone] Danya You, PA [address] [place] [address] [id number] Aliya Reese, OTR [address] [place] [address] Activity of daily living alteration [...] walker, tub clamp 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 Feelsher memory is improving. Working on brain activity based tasks. Pt would also like to return to driving-this is a #1 goal for her so she doesn't have to rely on others for appointments. Pain assessment: Pain denied Objective Cognitive Status Examination Defer to RUG WEAVER examination/assessment. 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: Pt has done laundry (2 loads)-decreased energy [...] Others:- Pt has 3 dogs (black lab, palauan richardson, and small dog and 2 cats); [...] Pt presented for planned catheter angiogram at [facility] for left sided pulsatile tinnitus, following procedure [...] Reintegration, Self-Care/Home Management, Therapeutic Activity, Therapeutic Exercise Correction Goals OT Goal 1 Goal Identifier: community mobility Goal Description: Pt participates in community mobility assessment items to screen for functional cognition and visuo-spatial reasoning/way finding including: cognitive screen (e.g. SBT, MoCA), SDMT,BiVaba Scan Course, [place] Making, Dynavision (all modes), foot tap measure, [...] additional referrals indicated; pt currently beingseen by RUG WEAVER and PT in addition to OT Education [...] Office Visit [facility] [address] [place] [address] Denise Woodson Ra, QUOTE CLERK INSULATOR HELPER [address] [place] [address] documented as of this encounter Visit Diagnoses Diagnosis Activity of daily living alteration- Primary Debility, unspecified Cerebrovascular accident (CVA), unspecified mechanism (H) Alteration in instrumental activities of daily living (IADL) documented in this encounter Additional Health Concerns Assessment Noted Time PHQ-9 Depression Total Score: 0 06/23/20 21 4:11 PM CDT documented as of this encounter Care Teams Photographic Lithographer Relationship Specialty Start Date End Date Winston Villatoro OD [facility] [place] [address] [place] [address] PCP - Ophthalmology Ophthalmology 02/11/13 Denise Woodson Ra, BARRERA INSULATOR HELPER [address] [place] [address] PCP - General Family Practice 09/21/20 Denise Woodson Ra, APRN INSULATOR HELPER [address] [place] [address] Assigned PCP 07/17/20 Usha Simon APRN INSULATOR HELPER 9 [facility] [id number] [address] Nurse Practitioner Neurological Surgery 01/24/24 Dangelo Salinas MD [address] [place] [address] Neurology 01/27/24 documented as of this encounter
--- OUTSIDE RECORDS SUMMARY | 2024-05-07 18:49 | XMS_ITS | Encounter Summary ---
Author Organization [facility] Address [address] [place] [address]. [place] [address] Care Team Providers Care Flower Cutter Name Role Phone Yung Madrigal MD Unavailable Unavailable Winston Villatoro OD Unavailable [phone] Denise Woodson Ra, APRN COLOR MIXER Unavailable +- [phone] Denise Woodson Ra, APRN COLOR MIXER Primary Care Provid er Usha Simon APRN COLOR MIXER Unavailable +- [phone] Dangelo Salinas MD Unavailable Usha Simon APRN COLOR MIXER Unavailable [phone]- [phone] Anastasia Stearns RN Unavailable [phone] Germaine Lopez CHW Unavailable [phone] Robin Zepeda MD Unavailable [phone] Reason for Visit * Reason Comments Medication Refill Encounter Details Date Type Department Care Team (Late st Contact Info) Description 06/11/2021 Refill [facility] [address] [facility] [address] [place] [address] Denise Woodson Ra, APRN COLOR MIXER [address] [place] [address] Medication Refill Social History Tobacco [...] Description 06/08/2024 8:30 AM CDT Office Visit [facility] [address] [place] [phone] Denise Woodson Ra, PIPING DESIGN SPECIALIST COLOR MIXER [address] [facility] [facility] [place] [id number] documented as of this encounter Visit Diagnoses Diagnosis Insomnia, unspecified type documented in this encounter Additional Health Concerns Assessment Noted Time PHQ-9 Depression Total Score: 0 01/05/20 9:31 AM CDT documented as of this encounter Care Teams Flower Cutter Relationship Specialty Start Date End Date Yung Madrigal MD RETIRED PCP - Orthopaedics Orthopedics 08/26/12 01/20/24 Winston Villatoro OD [facility] [address] [facility] [address] [place] [address] PCP - Ophthalmology Ophthalmology 02/11/13 Denise Woodson Ra, APRN COLOR MIXER [address] [place] [address] PCP - General Family Practice 09/21/20 Denise Woodson Ra, APRN COLOR MIXER [address] [place] [address] Assigned PCP 07/17/20 Usha Simon APRN COLOR MIXER 909 [facility], [place] [address] Nurse Practitioner Neurological Surgery 01/24/24 Dangelo Salinas MD [address] [place] [address] Neurology 01/27/24 Usha Simon APRN COLOR MIXER [address] [id number] Assigned Neuroscience Provider 02/06/24 03/07/24 Anastasia Stearns, RN Lead Chiropractic Neurologist 02/06/24 Germaine Lopez, W Community Health Worker Primary Care - CC 02/18/24 Robin Zepeda MD [address] 392415 Assigned Neuroscience Provider 03/08/24 documented as of this encounter
--- OUTSIDE RECORDS SUMMARY | 2024-05-07 18:49 | XMS_ITS | Encounter Summary ---
Author Organization [facility] Address [address] [place] [address]. [place] [address] Care Team Providers Care Supply Chain Project Manager Name Role Phone Winston Villatoro OD Unavailable [phone] Denise Woodson Ra, APRN SENIOR PRODUCT INTEGRITY ENGINEER Unavailable [phone] Denise Woodson Ra, APRN SENIOR PRODUCT INTEGRITY ENGINEER Primary Care Provid er Usha Simon APRN SENIOR PRODUCT INTEGRITY ENGINEER Unavailable [phone] Dangelo Salinas MD Unavailable Reason for Visit * Rehab Therapy Integrated Services (Routine) - Authorized Specialty Diagnoses / Procedures Referred By Nila shah Referred To Contact Diagnoses Cerebrovascular accident (CVA), unspecified mechanism (H) [address] [address] Referral ID Status Reason Start Date Expiration Date V isits Requested Visits Authorized [id number] Authorized 09/16/2023 09/15/2024 365 365 Encounter Details Date Type Department Care Team (Latest Contact Info) Description 01/29/2024 9:30 AM CDT Therapy Visit [address] [address] Danya You, PA [address] [place] [address] Danya Restrepo, BELT PICKER Cerebrovascular accident (CVA), unspecified mechanism (H) Social [...] this encounter Progress Notes * Danya Restrepo, BELT PICKER - 01/29/2024 9:30 AM CDT SPEECH LANGUAGE PATHOLOGY EVALUATION See electronic medical record for Abuse and Falls Screening details. Subjective Patient has a PMH of Lizy-Danlos syndrome, mild persistent asthma, anxiety and depression, and fibromyalgia who presented for a planned catheter angiogram at [facility] for left sided pulsatile tinnitus, following procedure found to have multiple acute ischemic infarcts of the frontal lobes, parietal lobes and left supramarginal gyrus after procedure with associated right sided weakness and numbness, likely embolic in nature secondary to procedure complication, complicated by post-stroke seizures, admitted on 01/17/2024 at [facility] for acute inpatient rehabilitation. She had a seizure like activity and went to [facility] for a few days. Discharged in setting of acute mental status change, concern for seizure, workup felt not consistent with seizure, episodes felt related to fatigue/stress. Functionally making progress with ongoing strength, balance, activity tolerance, and cognition below baseline, plan for home with outpatient PT/OT/BELT PICKER. ARU from 01/21-01/26/24 before discharging home. She has been doing well being home - She also notes a lot of mental and physical fatigue. She can do something for about 15-20 minutes then takes a 20 minute nap. Presenting condition or subjective complaint: recent CVA; patient reported that things seem to be coming back slowly. [place] like she had ADD tendencies at baseline. 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 Did not qualify for FMLA. On LITA for 6 months.Disability approved for 8 weeks. 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 Rationale: To maximize safety and independence with cognitive function within the home or community Target Date: 04/27/24 BELT PICKER Goal 2 Goal Identifier: Memory Goal Description: Alcon will complete moderate-complex memory based tasks with >90% accuracy given environmental supports across 2 consecutive sessions. Rationale: To maximize safety and independence with cognitive function within the home or community Target Date: 04/27/24 BELT PICKER Goal 3 Goal Identifier: Problem Solving Goal Description: Alcon will complete moderate-complex deductive reasoning/problem solving tasks with >90% accuracy given environmental supports across 2 consecutive sessions. Rationale: To maximize safety and independence with cognitive function within the home or community Target Date: 04/27/24 BELT PICKER Goal 4 Goal Identifier: Standardized Assessment Goal [...] Sound production (artic, phonology, apraxia, dysarthria) Minutes (41471): 45 The patient will be discharged from therapy when retirement goals are met, displays a plateau in progress, or demonstrates resistance or low motivation for therapy after redirections have been made. The patient may be discharged from therapy when parents or guardians wish to discontinue therapy and/or fails to adhere to [facility]'s attendance policy. Thank you for referring Alcon Zamora to outpatient speech therapy at [facility]. Please call Danya Restrepo MS, BELT PICKER-CCC at [phone] or email [email or web address] with any questions or concerns. Danya Restrepo MS, CCC-BELT PICKER documented in this encounter Plan of Treatment Upcoming Encounters Date Type Department Care Team (Late st Contact Info) Description 06/08/2024 8:30 AM CDT Office Visit [facility] [address] [place] [address] Denise Woodson Ra, ASSEMBLER DIELECTRIC HEATER [facility] [address] [place] [address] documented as of this encounter Visit Diagnoses Diagnosis Cerebrovascular accident (CVA), unspecified mechanism (H) documented in this encounter Additional Health Concerns Assessment Noted Time PHQ-9 Depression Total Score: 0 06/23/20 21 4:11 PM CDT documented as of this encounter Care Teams Supply Chain Project Manager Relationship Specialty Start Date End Date Winston Villatoro OD [facility] [place] [address] [place] [address] PCP - Ophthalmology Ophthalmology 02/11/13 Denise Woodson Ra, APRN SENIOR PRODUCT INTEGRITY ENGINEER [address] [place] [address] PCP - General Family Practice 09/21/20 Denise Woodson Ra, APRN SENIOR PRODUCT INTEGRITY ENGINEER [address] [place] [address] Assigned PCP 07/17/20 Usha Simon APRN SENIOR PRODUCT INTEGRITY ENGINEER [address] [place], [place] [address] [address] Nurse Practitioner Neurological Surgery 01/24/24 Dangelo Salinas MD [address] [place] [address] Neurology 01/27/24 documented as of this encounter
--- OUTSIDE RECORDS SUMMARY | 2024-05-07 18:49 | XMS_ITS | Encounter Summary ---
Author Organization [facility] Address [address] [place] [address] Care Team Providers Care Heel Stainer Name Role Phone Yung Madrigal MD Unavailable Unavailable Winston Villatoro OD Unavailable [phone] Serum, Clara Garland MD Primary Care Provider Serum, Clara Garland MD Unavailable [phone] Denise Woodson Ra SEARCH LEAD CUTTER HEAD SHARPENER Unavailable + [phone] Denise Woodson Ra SEARCH LEAD CUTTER HEAD SHARPENER Primary Care Provid er Usha Simon APRN CUTTER HEAD SHARPENER Unavailable [phone] Dangelo Salinas MD Unavailable Usha Simon SEARCH LEAD CUTTER HEAD SHARPENER Unavailable +- [phone] Anastasia Stearns RN Unavailable +[phone] Germaine Lopez CHW Unavailable +[phone] Robin Zepeda MD Unavailable [phone] Reason for Visit * Reason Onset Date Comments LAB REQUEST 06/16/2019 Encounter Details Date Type Department Care Team (Late st Contact Info) Description 06/16/2019 [facility] [address] [place] [address] Serum, Clara Garland MD [address] [place] [address] LAB REQUEST Social History Tobacco [...] RN - 06/16/2019 4:17 PM CDT See [email or web address] message regarding yesterday's appointment. Patient requesting to check TSH and antibodies for pt reported possible yonas's. Pended TSH for provider review. documented in this encounter Plan of Treatment Upcoming Encounters Date Type Department Care Team (Late st Contact Info) Description 06/08/2024 8:30 AM CDT Office Visit [facility] [address] [place] [address] Denise Woodson Ra, SEARCH LEAD CUTTER HEAD SHARPENER [address] [place] [address] documented as of this encounter Results * Follicle stimulating hormone (06/22/2019 3:36 PM CDT) FSH 9.5 IU/L 06/23/2019 2:32 PM CDT [facility] Comment: FSH Reference Range Female: Follicular ?2.5-10.2 ?Mid-cycle ? 3.4-33.4 ?Luteal ?1.5-9.1 ?Postmenopausal ??23.0-116.3 Blood specimen (specimen) 06/22/2019 3:36 PM CDT 06/22/2019 3:37 PM CDT Clara Cornell MD LAB - BLOOD ORD ERABLES [facility] [address] [place] [address] * TSH with free T4 reflex FUTURE anytime (06/22/2019 3:36 PM CDT) TSH 3.30 0.40 - 4.00 mU/L 06/23/2019 3:12 PM CDT [facility] Blood specimen (specimen) 06/22/2019 3:36 PM CDT 06/22/2019 3:37 PM CDT Clara Cornell MD LAB - BLOOD ORD ERALORELEI [facility] [address] [place] [address] documented in this encounter Visit Diagnoses Diagnosis Anti-TPO antibodies present- Primary Other and unspecified nonspecific immunological findings Excessive sweating Generalized hyperhidrosis documented in this encounter Additional Health Concerns Assessment Noted Time PHQ-9 Depression Total Score: 0 06/15/20 19 7:09 PM CDT documented as of this encounter Care Teams Heel Stainer Relationship Specialty Start Date End Date Yung Madrigal MD RETIRED PCP - Orthopaedics Orthopedics 08/26/12 01/20/24 Winston Villatoro OD [facility] [address] [place] [address] PCP - Ophthalmology Ophthalmology 02/11/13 Clara Cornell MD [facility] [address] [place] [address] PCP - General Internal Medicine 02/07/17 09/20/20 Denise Woodson Ra, SEARCH LEAD CUTTER HEAD SHARPENER [address] [place] [address] PCP - General Family Practice 09/21/20 Clara Cornell MD [address] [place], [place] [address] Assigned PCP 01/17/17 07/16/20 Denise Woodson Ra, APRN CUTTER HEAD SHARPENER [address] [place] [address] Assigned PCP 07/17/20 Usha Simon APRN CUTTER HEAD SHARPENER [address] [place] [address]35 Nurse Practitioner Neurological Surgery 01/24/24 Dangelo Salinas MD [address] [facility] [address] [place], [place] [address] Neurology 01/27/24 Usha Simon APRN CUTTER HEAD SHARPENER [address] [address]69[address] Assigned Neuroscience Provider 02/06/24 03/07/24 Anastasia Stearns, RN Lead Director Diversity 02/06/24 Germaine Lopez, W Community Health Worker Primary Care - CC 02/18/24 Robin Zepeda MD [address] [id number] Assigned Neuroscience Provider 03/08/24 documented as of this encounter
--- OUTSIDE RECORDS SUMMARY | 2024-05-07 18:49 | XMS_ITS | Encounter Summary ---
Author Organization [place] Address [address] [place] [address]. [place] [address] Care Team Providers Care Hot Tamale Man Name Role Phone Yung Madrigal MD Unavailable Unavailable Winston Villatoro OD Unavailable [phone] Denise Woodson Ra, APRN AIRFIELD ENGINEER OFFICER Unavailable + [phone] Denise Woodson Ra, APRN AIRFIELD ENGINEER OFFICER Primary Care Provid er Usha Simon APRN AIRFIELD ENGINEER OFFICER Unavailable +- [phone] Dangelo Salinas MD Unavailable Usha Simon APRN AIRFIELD ENGINEER OFFICER Unavailable + [phone] Anastasia Stearns RN Unavailable [phone] Germaine Lopez CHW Unavailable +[phone] Robin Zepeda MD Unavailable [phone] Reason for Visit * Reason Comments Medication Refill Encounter Details Date Type Department Care Team (Late st Contact Info) Description [facility] [address] [place] [address] Denise Woodson Ra, APRN AIRFIELD ENGINEER OFFICER [address] [place] [address] Medication Refill Social History Tobacco [...] as final attempt to schedule. Karla Velasquez Cranberry Bog Supervisor * Telephone Encounter - Karla Morales - 01/17/2023 8:59 AM CDT LVM requesting a call back for an appt (physical). One more attempt will be made. Karla Velasquez Cranberry Bog Supervisor * Telephone Encounter - Arianna Lo - 01/10/2023 3:33 PM CDT Sent Photo[employer]ia message requesting a call back for an appt. Two more attempts will be made. Arianna Velasquez Cranberry Bog Supervisor * Telephone Encounter - Leslie Mcclellan RN [...] 0 0 0 Leslie Mcclellan RN, BSN [facility] documented in this encounter Plan of Treatment Upcoming Encounters Date Type Department Care Team (Late st Contact Info) Description 06/08/2024 8:30 AM CDT Office Visit [facility] [address] [place] [address] Denise Woodson Ra, APRN AIRFIELD ENGINEER OFFICER [address] [place] [address] documented as of this encounter Visit Diagnoses Diagnosis Moderate persistent asthma without complication Unspecified asthma documented in this encounter Additional Health Concerns Assessment Noted Time PHQ-9 Depression Total Score: 0 06/23/20 21 4:11 PM CDT documented as of this encounter Care Teams Hot Tamale Man Relationship Specialty Start Date End Date Yung Madrigal MD RETIRED PCP - Orthopaedics Orthopedics 08/26/12 01/20/24 Winston Villatoro OD [facility] [place] [address] [place] [address] PCP - Ophthalmology Ophthalmology 02/11/13 Denise Woodson Ra, APRN AIRFIELD ENGINEER OFFICER [address] [place] [address] PCP - General Family Practice 09/21/20 Denise Woodson Ra, APRN AIRFIELD ENGINEER OFFICER [address] [place] [address] Assigned PCP 07/17/20 Usha Simon APRN AIRFIELD ENGINEER OFFICER [address] [place] [address] [id number] [place] [address] Nurse Practitioner Neurological Surgery 01/24/24 Dangelo Salinas MD [address] [place] [address] Neurology 01/27/24 Usha Simon APRN AIRFIELD ENGINEER OFFICER [address] [address] Assigned Neuroscience Provider 02/06/24 03/07/24 Anastasia Stearns, RN Lead Manager Of Quality 02/06/24 Germaine Lopez, W Community Health Worker Primary Care - CC 02/18/24 Robin Zepeda MD [address] [address] Assigned Neuroscience Provider 03/08/24 documented as of this encounter
--- OUTSIDE RECORDS SUMMARY | 2024-05-07 18:49 | XMS_ITS | Encounter Summary ---
Author Organization [place] Address [address] [place] [address] Care Team Providers Care Supervisor Joiners Name Role Phone Winston Villatoro OD Unavailable [phone] Denise Woodson Ra, APRN MEDICAL CORPS OFFICER Unavailable + [phone] Denise Woodson Ra SUPERVISORY AIDE [employer] OFFICER Primary Care Provid er Usha Simon APRN MEDICAL CORPS OFFICER Unavailable +[phone] Dangelo Salinas MD Unavailable Usha Simon APRN MEDICAL CORPS OFFICER Unavailable +- [phone] Anastasia Stearns RN Unavailable +[phone] Germaine Lopez CHW Unavailable +[phone] Robin Zepeda MD Unavailable +[phone] Reason for Visit * Reason Onset Date Comments Appointment 01/23/2024 Referral-Stroke hospital follow up Encounter Details Date Type Department Care Team (Late st Contact Info) Description 01/23/2024 Telephone [facility] Neurology Clinic [address] 3rd [place] [address] None Appointment (Referral-Stroke hospital follow [...] encounter Miscellaneous Notes * Telephone Encounter - Nani Bassett - 01/23/2024 1:33 PM CDT [facility] Call Center Phone Message May a detailed message be left on voicemail: yes Reason for Call: Appointment Intake Referring Provider Name: Dr. Delisa Manuel Ur 5 Med Surg Diagnosis and/or Symptoms: Stroke Please review referral for Stroke as no HFU orders are entered for Stroke follow up. Patient discharged on 01/22/24 from [facility] and is now in Acute Rehab Unit. Action Taken: Message routed to: [facility] Neurology Travel Screening: Not Applicable documented in this encounter Plan of Treatment Upcoming Encounters Date Type Department Care Team (Late st Contact Info) Description 06/08/2024 8:30 AM CDT Office Visit [facility] [address] [facility] [place] [address] Denise Woodson Ra, SUPERVISORY AIDE MEDICAL CORPS OFFICER [address] [place], [place] 8[address] documented as of this encounter Visit Diagnoses Not on filedocumented in this encounter Additional Health Concerns Assessment Noted Time PHQ-9 Depression Total Score: 0 06/23/20 21 4:11 PM CDT documented as of this encounter Care Teams Supervisor Joiners Relationship Specialty Start Date End Date Winston Villatoro OD [facility] [place] [address] [place] [address] PCP - Ophthalmology Ophthalmology 02/11/13 Denise Woodson Ra, BARRERA [employer] OFFICER [address] [place], [place] [address] PCP - General Family Practice 09/21/20 Denise Woodson Ra, APRN MEDICAL CORPS OFFICER [address] [place] [address] Assigned PCP 07/17/20 Usha Simon APRN MEDICAL CORPS OFFICER [address] 0617[address] Nurse Practitioner Neurological Surgery 01/24/24 Dangelo Salinas MD [address] [place], [place] [address] Neurology 01/27/24 Usha Simon APRN MEDICAL CORPS OFFICER [address] [place] [address] 153705 Assigned Neuroscience Provider 02/06/24 03/07/24 Anastasia Stearns, RN Lead Harpoon Engagement Planning Operator 02/06/24 Germaine Lopez, CHW Community Health Worker Primary Care - CC 02/18/24 Robin Zepeda MD [address] 187[address] Assigned Neuroscience Provider 03/08/24 documented as of this encounter
--- OUTSIDE RECORDS SUMMARY | 2024-05-07 18:49 | XMS_ITS | Encounter Summary ---
Author Organization [place] Address [address] [place] [address] Care Team Providers Care Frog Or Oyster Farmworker Name Role Phone Yung Madrigal MD Unavailable Unavailable Winston Villatoro OD Unavailable [phone] Denise Woodson Ra, APRN CORPORATE ADMINISTRATOR Unavailable + [phone] Denise Woodson Ra EP TECH CORPORATE ADMINISTRATOR Primary Care Provid er Usha Simon APRN CORPORATE ADMINISTRATOR Unavailable + [phone] Dangelo Salinas MD Unavailable Usha Simon APRN CORPORATE ADMINISTRATOR Unavailable + [phone] Anastasia Stearns RN Unavailable [phone] Germaine Lopez CHW Unavailable [phone] Robin Zepeda MD Unavailable [phone] Encounter Details Date Type Department Care Team (Late st Contact Info) Description 01/10/2023 [facility] [address] [place] [address] Arianna Lo Social History Tobacco [...] Description 06/08/2024 8:30 AM CDT Office Visit [facility] [place] [address] [place] [address] Denise Woodson Ra, BARRERA CORPORATE ADMINISTRATOR [address] [place] [address] documented as of this encounter Visit Diagnoses Not on filedocumented in this encounter Additional Health Concerns Assessment Noted Time PHQ-9 Depression Total Score: 0 06/23/20 21 4:11 PM CDT documented as of this encounter Care Teams Frog Or Oyster Farmworker Relationship Specialty Start Date End Date Yung Madrigal MD RETIRED PCP - Orthopaedics Orthopedics 08/26/12 01/20/24 Winston Villatoro, AM[facility]IE [facility] [place] [address] [facility] [address] [place] [address] PCP - Ophthalmology Ophthalmology 02/11/13 Denise Woodson Ra, APRN CORPORATE ADMINISTRATOR [address] [place] [address] PCP - General Family Practice 09/21/20 Denise Woodson Ra, APRN CORPORATE ADMINISTRATOR [address] [place] [address] Assigned PCP 07/17/20 Usha Simon APRN CORPORATE ADMINISTRATOR 9 [facility] [address] Nurse Practitioner Neurological Surgery 01/24/24 Dangelo Salinas MD [address] [place], [place] [address] Neurology 01/27/24 Usha Simon APRN CNP [address] 084045 Assigned Neuroscience Provider 02/06/24 03/07/24 Anastasia Stearns, RN Lead Platinum Smith 02/06/24 Germaine Lopez, [facility] Community Health Worker Primary Care - CC 02/18/24 Robin Zepeda MD [address] 993815 Assigned Neuroscience Provider 03/08/24 documented as of this encounter
--- OUTSIDE RECORDS SUMMARY | 2024-05-07 18:49 | XMS_ITS | Encounter Summary ---
Author Organization [facility] Address [address] [place] [address]. [place] [address] Care Team Providers Care Renal Social Worker Name Role Phone Winston Villatoro OD Unavailable Denise Woodson Ra, APRN ORE FEEDER Unavailable [phone] Denise Woodson Ra, APRN ORE FEEDER Primary Care Provid er Usha Simon APRN ORE FEEDER Unavailable [phone] Dangelo Salinas MD Unavailable Reason for Visit * Rehab Therapy Integrated Services (Routine) - Authorized Specialty Diagnoses / Procedures Referred By Nila shah Referred To Contact Diagnoses Cerebrovascular accident (CVA), unspecified mechanism (H) [address] [address] Referral ID Status Reason Start Date Expiration Date V isits Requested Visits Authorized [id number] Authorized 09/16/2023 09/15/2024 365 365 Encounter Details Date Type Department Care Team (Late st Contact Info) Description 01/28/2024 1:15 PM CDT Therapy Visit [address] [phone] Danya You, PA [address] [place] [address] [id number] Delicia George, PT [address] [place] [address] Cerebrovascular accident (CVA), unspecified mechanism (H) Social [...] presented for a planned catheter angiogram at [facility] for left sided pulsatile tinnitus, following procedure found to have 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 She had a seizure like activity and went to [facility] for a few days. Discharged in sett ing of acute mental status change, concern for seizure, workup felt not consistent with seizure, episodes felt related to fatigue/stress. Functionally making progress with ongoing strength, balance, activity tolerance, and cognition below baseline, plan for home with outpatient PT/OT/CLINICAL NURSE EDUCATOR. ARU from01/21- 01/26/24 before discharging home. 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 Clinical Decision Making (Complexity): Clinical Presentation: Evolving/Changing Clinical Presentation Rationale: based on medical and personal factors listed in PT evaluation Clinical Decision Making (Complexity): Moderate complexity PLAN OF CARE Treatment Interventions: Interventions: Gait Training, Manual Therapy, Neuromuscular Re-education, Therapeutic Activity, Therapeutic Exercise, Self-Care/Home Management, Canalith Repositioning Detention Goals PT Goal 1 Goal Identifier: HEP [...] of Care. Evaluation Time: PT Lev Bajwa Complexity Minutes (79282): 35 Signing Clinician: Delicia George PT documented in this encounter Plan of Treatment Upcoming Encounters Date Type Department Care Team (Late st Contact Info) Description 06/08/2024 8:30 AM CDT Office Visit [facility] [address] [place] [address] Denise Woodson Ra, BARRERA ORE FEEDER [address] [place] [address] documented as of this encounter Visit Diagnoses Diagnosis Cerebrovascular accident (CVA), unspecified mechanism (H) documented in this encounter Additional Health Concerns Assessment Noted Time PHQ-9 Depression Total Score: 0 06/23/20 21 4:11 PM CDT documented as of this encounter Care Teams Renal Social Worker Relationship Specialty Start Date End Date Winston Villatoro, AMELIE [facility] [place] [address] [place] [address] PCP - Ophthalmology Ophthalmology 02/11/13 Denise Woodson Ra, APRN ORE FEEDER [address] [place] [address] PCP - General Family Practice 09/21/20 Denise Woodson Ra, APRN ORE FEEDER [address] [place] [address] Assigned PCP 07/17/20 Usha Simon APRN ORE FEEDER 909 [facility] [id number] [address] Nurse Practitioner Neurological Surgery 01/24/24 Dangelo Salinas MD [address] [place] [address] Neurology 01/27/24 documented as of this encounter
--- OUTSIDE RECORDS SUMMARY | 2024-05-07 18:49 | XMS_ITS | Encounter Summary ---
Author Organization [facility] Address [address] [place] [address] Care Team Providers Care Manager Statistics Name Role Phone ShaunaWinston OD Unavailable [phone] Denise Woodson Ra, APRN MILLINERY SALESPERSON Unavailable +- [phone] Denise Woodson Ra, APRN MILLINERY SALESPERSON Primary Care Provid er Usha Simon APRN MILLINERY SALESPERSON Unavailable +- [phone] Dangelo Salinas MD Unavailable Encounter Details Date Type Department Care Team (Late st Contact Info) Description 01/30/2024 [facility] Neurology Clinic [address] [place] [address] Stacey Kelley RN Social History [...] have most of her other care in [facility] and is going to stay in [place] system(except for neurosurgery) she should follow there. If she is going to stay in our system, I can seeher. Thanks Called patient to discuss where most of her care is taking place. [facility] for patient letting her knowI was calling from Dr. Hoyos's office with a couple questions and will send her a [employer] message. Left my contact information for further questions/concerns. Stacey Kelley RN 01/30/2024 10:15 AM documented in this encounter Plan of Treatment Upcoming Encounters Date Type Department Care Team (Late st Contact Info) Description 06/08/2024 8:30 AM CDT Office Visit [facility] [address] [place] [address] Denise Woodson Ra, BARRERA MILLINERY SALESPERSON [address] [facility] [place] [address] documented as of this encounter Visit Diagnoses Not on filedocumented in this encounter Additional Health Concerns Assessment Noted Time PHQ-9 Depression Total Score: 0 06/23/20 21 4:11 PM CDT documented as of this encounter Care Teams Manager Statistics Relationship Specialty Start Date End Date Winston Villatoro, OD [facility] [address] [facility] [address] [place] [address] PCP - Ophthalmology Ophthalmology 02/11/13 Denise Woodson Ra, APRN MILLINERY SALESPERSON [address] [address] [address] PCP - General Family Practice 09/21/20 Denise Woodson Ra, APRN MILLINERY SALESPERSON [address] [address] [address] Assigned PCP 07/17/20 Usha Simon APRN MILLINERY SALESPERSON [address] [facility] [address] Nurse Practitioner Neurological Surgery 01/24/24 Dangelo Salinas MD [address] [place], [place] [address] Neurology 01/27/24 documented as of this encounter
--- OUTSIDE RECORDS SUMMARY | 2024-05-07 18:50 | XMS_ITS | Encounter Summary ---
Author Organization [place] Address [address] [place] [address] Care Team Providers Care Horticulture Teacher Name Role Phone Timmy Perez MD Unavailable Unavailable Yung Madrigal MD Unavailable Unavailable Frw, None Primary Care Provider Unavailabl e Winston Villatoro OD Unavailable [phone] Apple Sykes MD Primary Care Provider Unavailab Westley Vera MD Unavailable [phone] Alessandra Cabrales APRN SPECIAL CRIMES INVESTIGATOR Primary Car e Provider Serum, Clara Garland MD Primary Care Provider Serum, Clara Garland MD Unavailable [phone] Serum, Clara Garland MD Unavailable [phone] Denise Woodson Ra, APRN SPECIAL CRIMES INVESTIGATOR Unavailable + [phone] Denise Woodson Ra, APRN SPECIAL CRIMES INVESTIGATOR Primary Care Provid er Usha Simon APRN SPECIAL CRIMES INVESTIGATOR Unavailable + [phone] Dangelo Salinas MD Unavailable Usha Simon APRN SPECIAL CRIMES INVESTIGATOR Unavailable + [phone] Anastasia Stearns RN Unavailable [phone] Germaine Lopez CHW Unavailable [phone] Robin Zepeda MD Unavailable [phone] Encounter Details Date Type Department Care Team (Late st Contact Info) Description 01/30/2006 [facility] Inpatient Dept [address] [place] [address] Frw, Inpatient Provider Social History [...] pain. PROCEDURE: TOTAL VAGINAL HYSTERECTOMY. SURGEON: Chris MUSICAL INSTRUMENT MECHANIC: Radha ANESTHESIA: Spinal ESTIMATED BLOOD LOSS: 100 [...] and in good condition. Timmy Perez M.D. WDS/lac cc: documented in this encounter Plan of Treatment Upcoming Encounters Date Type Department Care Team (Late st Contact Info) Description 06/08/2024 8:30 AM CDT Office Visit [facility] [address] [place] [phone] Denise Woodson Ra, BYPRODUCT ENGINEER SPECIAL CRIMES INVESTIGATOR [address] [place], [place] [address] documented as of this encounter Visit Diagnoses Not on filedocumented in this encounter Care Teams Horticulture Teacher Relationship Specialty Start Date End Date Timmy Perez MD PCP - Obstetrics/Gynecology 03/02/08 08/07/15 Yung Madrigal MD RETIRED PCP - Orthopaedics Orthopedics 08/26/12 01/20/24 Frw, None PCP - General Family Practice 08/26/12 05/03/13 Winston Villatoro OD [facility] [place] [address] [place] [address] PCP - Ophthalmology Ophthalmology 02/11/13 Apple Sykes MD [facility] [place] [address] [place] [address] PCP - General Family Practice 05/04/13 10/25/16 Westley Bates MD XXX RETIRED [facility] [address] [address] [place] [address] PCP - ENT Otolaryngology 05/14/13 07/28/18 Alessandra Cabrales APRN SPECIAL CRIMES INVESTIGATOR [address] [facility] [address] [place] [address] PCP - General Nurse Practitioner 10/26/16 02/06/17 Clara Cornell MD [address] [facility] [address] [place] [address] PCP - General Internal Medicine 02/07/17 09/20/20 Clara Cornell MD [address]75 [place] [address] PCP - Assigned PCP 01/17/17 11/18/18 Denise Woodson Ra, APRN SPECIAL CRIMES INVESTIGATOR [address] [place] [address] PCP - General Family Practice 09/21/20 Clara Cornell MD [address] [place] [address] Assigned PCP 01/17/17 07/16/20 Denise Woodson Ra, APRN SPECIAL CRIMES INVESTIGATOR [address] [place] [address] Assigned PCP 07/17/20 Usha Simon APRN SPECIAL CRIMES INVESTIGATOR 909 [facility]121[place] [address] Nurse Practitioner Neurological Surgery 01/24/24 Dangelo Salinas MD [address] [place] [address] Neurology 01/27/24 Usha Simon APRN SPECIAL CRIMES INVESTIGATOR [address] [address] Assigned Neuroscience Provider 02/06/24 03/07/24 Anastasia Stearns, RN Lead Remedial Masseur 02/06/24 Germaine Lopez, [facility] Community Health Worker Primary Care - CC 02/18/24 Robin Zepeda MD [address] [address] Assigned Neuroscience Provider 03/08/24 documented as of this encounter
--- OUTSIDE RECORDS SUMMARY | 2024-05-07 18:50 | XMS_ITS | Encounter Summary ---
Author Organization [facility] Address [address] [place] [address] Care Team Providers Care Tub Rider Name Role Phone Timmy Perez MD Unavailable Unavailable Yung Madrigal MD Unavailable Unavailable Winston Villatoro OD Unavailable [phone] Apple Sykes MD Primary Care Provider Unavailab Westley Vera MD Unavailable [phone] Alessandra Cabrales APRN POTTERY STRIPER Primary Car e Provider Serum, Clara Garland MD Primary Care Provider Serum, Clara Garland MD Unavailable [phone] Serum, Clara Garland MD Unavailable Denise Woodson Ra, APRN POTTERY STRIPER Unavailable + [phone] Denise Woodson Ra, APRN POTTERY STRIPER Primary Care Provid er Usha Simon APRN POTTERY STRIPER Unavailable + [phone] Dangelo Salinas MD Unavailable Usha Simon APRN POTTERY STRIPER Unavailable + [phone] Anastasia Stearns RN Unavailable [phone] Germaine Lopez CHW Unavailable [phone] Robin Zepeda MD Unavailable [phone] Encounter Details Date Type Department Care Team (Late st Contact Info) Description 05/06/2013 [facility] [address] [place] [address] Apple Sykes MD Social History Tobacco Use Types Packs/Day [...] 8:30 AM CDT Office Visit [facility] [address] [place] [address] Denise Woodson Ra, RAILROAD TRACK REPAIR SUPERVISOR POTTERY STRIPER [address] [place], [place] 99[address] documented as of this encounter Visit Diagnoses Not on filedocumented in this encounter Care Teams Tub Rider Relationship Specialty Start Date End Date Timmy Perez MD PCP - Obstetrics/Gynecology 03/02/08 08/07/15 Yung Madrigal MD RETIRED PCP - Orthopaedics Orthopedics 08/26/12 01/20/24 Winston Villatoro OD [facility] [address] [place] [address] PCP - Ophthalmology Ophthalmology 02/11/13 Apple Sykes MD [facility] [address] [place] [address] PCP - General Family Practice 05/04/13 10/25/16 Westley Bates MD XXX RETIRED XXX [address] [place] [address] PCP - ENT Otolaryngology 05/14/13 07/28/18 Alessandra Cabrales APRN POTTERY STRIPER [address] [facility] [address] [place] [address] PCP - General Nurse Practitioner 10/26/16 02/06/17 Clara Cornell MD [address] [facility] [address] [place] [address] PCP - General Internal Medicine 02/07/17 09/20/20 Clara Cornell MD 8675 [place] [address] PCP - Assigned PCP 01/17/17 11/18/18 Denise Woodson Ra, RAILROAD TRACK REPAIR SUPERVISOR POTTERY STRIPER [address] [place] [address] PCP - General Family Practice 09/21/20 Clara Cornell MD [address]75 [place] [address] Assigned PCP 01/17/17 07/16/20 Denise Woodson Ra, RAILROAD TRACK REPAIR SUPERVISOR POTTERY STRIPER [address] [place] [address] Assigned PCP 07/17/20 Usha Simon APRN POTTERY STRIPER 909 [facility] [id number] [place], [place] 833225 Nurse Practitioner Neurological Surgery 01/24/24 Dangelo Salinas MD [address] [place] [address] Neurology 01/27/24 Usha Simon APRN POTTERY STRIPER 909 [facility]121[address] [place] [address] Assigned Neuroscience Provider 02/06/24 03/07/24 Anastasia Stearns, RN Lead Poultry Farm Worker 02/06/24 Germaine Lopez, W Community Health Worker Primary Care - CC 02/18/24 Robin Zepeda MD 909 [facility] [place], [place] [address]45 Assigned Neuroscience Provider 03/08/24 documented as of this encounter
--- OUTSIDE RECORDS SUMMARY | 2024-05-07 18:50 | XMS_ITS | Encounter Summary ---
Author Organization [place] Address [address] [place] [address] Care Team Providers Care Event Staff Name Role Phone Timmy Perez MD Unavailable Unavailable Yung Madrigal MD Unavailable Unavailable Frw, None Primary Care Provider Unavailabl e Winston Villatoro OD Unavailable [phone] Apple Sykes MD Primary Care Provider Unavailab Westley Vera MD Unavailable [phone] Alessandra Cabrales APRN CUSTOMER RESOLUTION SPECIALIST Primary Car e Provider Serum, Clara Garland MD Primary Care Provider Serum, Clara Garland MD Unavailable Serum, Clara Garland MD Unavailable [phone] Denise Woodson Ra, APRN CUSTOMER RESOLUTION SPECIALIST Unavailable + [phone] Denise Woodson Ra, APRN CUSTOMER RESOLUTION SPECIALIST Primary Care Provid er Usha Simon APRN CUSTOMER RESOLUTION SPECIALIST Unavailable + [phone] Dangelo Salinas MD Unavailable Usha Simon APRN CUSTOMER RESOLUTION SPECIALIST Unavailable + [phone] Anastasia Stearns RN Unavailable +[phone] Germaine Lopez CHW Unavailable [phone] Robin Zepeda MD Unavailable +[phone] Reason for Visit * Reason Onset Date Comments Medication Question 04/21/2013 Farhan Saez [facility] Encounter Details Date Type Department Care Team (Late st Contact Info) Description 04/21/2013 Telephone [facility] in [facility] [address] [place] [address] Janna Rodriguez, veterinary dentist Question ([facility]) Social History Tobacco Use Types Packs/Day [...] Description 06/08/2024 8:30 AM CDT Office Visit [facility] [address] [place] [address] Denise Woodson Ra, FUNDING COORDINATOR CUSTOMER RESOLUTION SPECIALIST [address] [place] [address] documented as of this encounter Visit Diagnoses Not on filedocumented in this encounter Care Teams Event Staff Relationship Specialty Start Date End Date Timmy Perez MD PCP - Obstetrics/Gynecology 03/02/08 08/07/15 Yung Madrigal MD RETIRED PCP - Orthopaedics Orthopedics 08/26/12 01/20/24 Frw, None PCP - General Family Practice 08/26/12 05/03/13 Winston Villatoro OD [facility] [place] [address] [place] [address] PCP - Ophthalmology Ophthalmology 02/11/13 Apple Sykes MD [facility] [place] [address] [place] [address] PCP - General Family Practice 05/04/13 10/25/16 Westley Bates MD XXX RETIRED XXX [address] [place] [address] PCP - ENT Otolaryngology 05/14/13 07/28/18 [facility] CUSTOMER RESOLUTION SPECIALIST [address] [facility] [place] [id number] PCP - General Nurse Practitioner 10/26/16 02/06/17 Clara Cornell MD [address] [facility] [place] [address] PCP - General Internal Medicine 02/07/17 09/20/20 Clara Cornell MD 8675 [place] [address] PCP - Assigned PCP 01/17/17 11/18/18 Denise Woodson Ra, APRN CUSTOMER RESOLUTION SPECIALIST [address] [place] [address] PCP - General Family Practice 09/21/20 Clara Cornell MD 8675 [place] [address] Assigned PCP 01/17/17 07/16/20 Denise Woodson Ra, APRN CUSTOMER RESOLUTION SPECIALIST [address] [place] [address] Assigned PCP 07/17/20 Usha Simon APRN CUSTOMER RESOLUTION SPECIALIST [address] [place] [address] 394315 Nurse Practitioner Neurological Surgery 01/24/24 Dangelo Salinas MD [address] [place] [address] [place] [address] [id number] Neurology 01/27/24 Usha Simon APRN CUSTOMER RESOLUTION SPECIALIST [address] [place] [address] 404455 Assigned Neuroscience Provider 02/06/24 03/07/24 Anastasia Stearns, RN Lead Street Light Servicer Supervisor 02/06/24 Germaine Lopez, CHW Community Health Worker Primary Care - CC 02/18/24 Robin Zepeda MD [address] 834295 Assigned Neuroscience Provider 03/08/24 documented as of this encounter
--- OUTSIDE RECORDS SUMMARY | 2024-05-07 18:50 | XMS_ITS | Encounter Summary ---
Author Organization [place] Address [address] [place] [address] Care Team Providers Care General Lot Attendant Name Role Phone Timmy Perez MD Unavailable Unavailable Yung Madrigal MD Unavailable Unavailable Winston Villatoro OD Unavailable [phone] Apple Sykes MD Primary Care Provider Unavailab Westley Vera MD Unavailable [phone] Alessandra Cabrales APRN CALTRANS EQUIPMENT OPERATOR Primary Car e Provider Serum, Clara Garland MD Primary Care Provider Serum, Clara Garland MD Unavailable [phone] Serum, Clara Garland MD Unavailable [phone] Denise Woodson Ra, APRN CALTRANS EQUIPMENT OPERATOR Unavailable + [phone] Denise Woodson Ra, APRN CALTRANS EQUIPMENT OPERATOR Primary Care Provid er Usha Simon APRN CALTRANS EQUIPMENT OPERATOR Unavailable + [phone] Dangelo Salinas MD Unavailable Usha Simon APRN CALTRANS EQUIPMENT OPERATOR Unavailable + [phone] Anastasia Stearns RN Unavailable [phone] Germaine Lopez CHW Unavailable +[phone] Robin Zepeda MD Unavailable [phone] Encounter Details Date Type Department Care Team (Late st Contact Info) Description 05/26/2013 MyC Medical Advice [facility] in [place] Orthopedics [address] [place] [address] Yung Madrigal MD RETIRED Social History Tobacco [...] 8:30 AM CDT Office Visit [facility] [address] [place] [phone] Denise Woodson Ra, MAJOR LEAGUE BASEBALL UMPIRE [facility] [address] [place], [place] 4907168 documented as of this encounter Visit Diagnoses Not on filedocumented in this encounter Care Teams General Lot Attendant Relationship Specialty Start Date End Date Timmy Perez MD PCP - Obstetrics/Gynecology 03/02/08 08/07/15 Yung Madrigal MD RETIRED PCP - Orthopaedics Orthopedics 08/26/12 01/20/24 Winston Villatoro OD [place] [address] [facility] [address] [place] [address] PCP - Ophthalmology Ophthalmology 02/11/13 Apple Sykes MD [facility] [address] [facility] [place] [address] PCP - General Family Practice 05/04/13 10/25/16 Westley Bates MD XXX RETIRED XXX [address] [place] [address] [address] [place] [address] PCP - ENT Otolaryngology 05/14/13 07/28/18 Georgina-Alessandra Gómez APRN CALTRANS EQUIPMENT OPERATOR 3305 [facility] [place] [address] PCP - General Nurse Practitioner 10/26/16 02/06/17 Clara Cornell MD [address] [facility] [place] [address] PCP - General Internal Medicine 02/07/17 09/20/20 Clara Cornell MD 8675 [place] [address] PCP - Assigned PCP 01/17/17 11/18/18 Denise Woodson Ra MAJOR LEAGUE BASEBALL UMPIRE CALTRANS EQUIPMENT OPERATOR [address] [address] [facility] [address] PCP - General Family Practice 09/21/20 Clara Cornell MD 8675 [place] [address] Assigned PCP 01/17/17 07/16/20 Denise Woodson Ra MAJOR LEAGUE BASEBALL UMPIRE CALTRANS EQUIPMENT OPERATOR [address] [facility] [facility] [address] Assigned PCP 07/17/20 Usha Simon APRN CALTRANS EQUIPMENT OPERATOR 9 [facility] [place], [place] 2725[address] Nurse Practitioner Neurological Surgery 01/24/24 Dangelo Salinas MD [address] [place] [address] Neurology 01/27/24 Usha Simon APRN CALTRANS EQUIPMENT OPERATOR 909 [facility] [place] [address] Assigned Neuroscience Provider 02/06/24 03/07/24 Anastasia Stearns, RN Lead Route Salesperson 02/06/24 Germaine Lopez, W Community Health Worker Primary Care - CC 02/18/24 Robin Zepeda MD 909 [facility] [place], [place] 367[address] Assigned Neuroscience Provider 03/08/24 documented as of this encounter
--- OUTSIDE RECORDS SUMMARY | 2024-05-07 18:50 | XMS_ITS | Encounter Summary ---
Author Organization [place] Address [address] [place] [address]. [place] [address] Care Team Providers Care Chemist Organic Name Role Phone Timmy Perez MD Unavailable Unavailable Encounter Details Date Type Department Care Team (Late Contact Info) Description 01/17/2012 3:20 PM CDT [facility] in [facility] [address] [place] [phone] Luis Walsh [address] [place] [address] Interface, MD [place] Social History Tobacco Use [...] Description 06/08/2024 8:30 AM CDT Office Visit [facility] [address] [place] [phone] Denise Woodson Ra, MOTHER HELPER [facility] [address] [place], [place] 1138768 documented as of this encounter Visit Diagnoses Not on filedocumented in this encounter Care Teams Chemist Organic Relationship Specialty Start Date End Date Timmy Perez MD PCP - Obstetrics/Gynecology 6/17/08 11/10/31 documented as of this encounter
--- OUTSIDE RECORDS SUMMARY | 2024-05-07 18:50 | XMS_ITS | Encounter Summary ---
Author Organization [place] Address [address] [place] [address] Care Team Providers Care Shuttle Repairer Name Role Phone Timmy Perez MD Unavailable Unavailable Yung Madrigal MD Unavailable Unavailable Winston Villatoro OD Unavailable [phone] Apple Sykes MD Primary Care Provider Unavailab Westley Vear MD Unavailable Alessandra Cabrales APRN RN AMBULATORY Primary Car e Provider Serum, Clara Garland MD Primary Care Provider Serum, Clara Garland MD Unavailable [phone] Serum, Clara Garland MD Unavailable [phone] Denise Woodson Ra, APRN RN AMBULATORY Unavailable + [phone] Denise Woodson Ra, APRN RN AMBULATORY Primary Care Provid er Usha Simon APRN RN AMBULATORY Unavailable + [phone] Dangelo Salinas MD Unavailable Usha Simon APRN RN AMBULATORY Unavailable + [phone] Anastasia Stearns RN Unavailable [phone] Germaine Lopez CHW Unavailable [phone] Robin Zepeda MD Unavailable [phone] Encounter Details Date Type Department Care Team (Late st Contact Info) Description 05/19/2013 MyC Medical Advice [facility] in [place] Orthopedics [address] [place] [address] Yung Madrigal MD RETIRED Social History Tobacco [...] Office Visit [facility] [address] [place] [phone] Denise Woodson Ra, BAGGER AND STOCK HANDLER HELPER [facility] [address] [place], [place] [phone] documented as of this encounter Visit Diagnoses Not on filedocumented in this encounter Care Teams Shuttle Repairer Relationship Specialty Start Date End Date Timmy Perez MD PCP - Obstetrics/Gynecology 03/02/08 08/07/15 Yung Madrigal MD RETIRED PCP - Orthopaedics Orthopedics 08/26/12 01/20/24 Winston Villatoro OD [place] [address] [facility] [address] [place] [address] PCP - Ophthalmology Ophthalmology 02/11/13 Apple Sykes MD [facility] [address] [place] [address] PCP - General Family Practice 05/04/13 10/25/16 Westley Bates MD XXX RETIRED XXX [address] [place] [address] [address] [place] [address] PCP - ENT Otolaryngology 05/14/13 07/28/18 Georgina-Alessandra Gómez APRN RN AMBULATORY [address] [facility] [place] [address] PCP - General Nurse Practitioner 10/26/16 02/06/17 Clara Cornell MD [address] [facility] [place] [address] PCP - General Internal Medicine 02/07/17 09/20/20 Clara Cornell MD 8675 [place] [address] PCP - Assigned PCP 01/17/17 11/18/18 Denise Woodson Ra BAGGER AND STOCK HANDLER HELPER RN AMBULATORY [address] [facility] [address] PCP - General Family Practice 09/21/20 Clara Cornell MD 8675 [place] [address] Assigned PCP 01/17/17 07/16/20 Denise Woodson Ra BAGGER AND STOCK HANDLER HELPER RN AMBULATORY [address] [facility] [place] [address] Assigned PCP 07/17/20 Usha Simon APRN RN AMBULATORY 9 [facility] [place], [place] [address] Nurse Practitioner Neurological Surgery 01/24/24 Dangelo Salinas MD [address] [place] [address] Neurology 01/27/24 Usha Simon APRN RN AMBULATORY 909 [facility] [place] [address] Assigned Neuroscience Provider 02/06/24 03/07/24 Anastasia Stearns, RN Lead Vehicle Check In Clerk 02/06/24 Germaine Lopez, W Community Health Worker Primary Care - CC 02/18/24 Robin Zepeda MD 909 [facility] [place], [place] 0[address] Assigned Neuroscience Provider 03/08/24 documented as of this encounter
--- OUTSIDE RECORDS SUMMARY | 2024-05-07 18:50 | XMS_ITS ---
Author Organization [place] Address [address] [place] [address] Care Team Providers Care Lawyers Name Role Phone Winston Villatoro OD Unavailable [phone] Denise Woodson Ra, APRN ELECTRIC METER INSPECTOR Unavailable + [phone] Denise Woodson Ra, APRN ELECTRIC METER INSPECTOR Primary Care Provid er Usha Simon APRN ELECTRIC METER INSPECTOR Unavailable + [phone] Dangelo Salinas MD Unavailable Anastasia Stearns RN Unavailable [phone] Germaine Lopez CHW Unavailable [phone] Robin Zepeda MD Unavailable [phone] Primary Care Care Coordination Status:Enrolled (Active) Start date:02/06/2024 Enrollment date:02/07/2024 Case Team Name Relationship Phone Anastasia Stearns RN Lead Driver'S Education Instructor(Respons ible Staff) [phone] Germaine Lopez CHW Community Health Worker [phone] Continued Care and Services Coordination
--- OUTSIDE RECORDS SUMMARY | 2024-05-07 18:50 | XMS_ITS | Encounter Summary ---
Author Organization [place] Address [address] [place] [address] Care Team Providers Care Welding Process Specialist Name Role Phone Timmy Perez MD Unavailable Unavailable Yung Madrigal MD Unavailable Unavailable Winston Villatoro OD Unavailable [phone] Apple Sykes MD Primary Care Provider Unavailab Westley Vera MD Unavailable [phone] Alessandra Cabrales APRN MARGARINE CHURN OPERATOR Primary Car e Provider Serum, Clara Garland MD Primary Care Provider Serum, Clara Garland MD Unavailable [phone] Serum, Clara Garland MD Unavailable [phone] Denise Woodson Ra, APRN MARGARINE CHURN OPERATOR Unavailable +[phone] Denise Woodson Ra, APRN MARGARINE CHURN OPERATOR Primary Care Provid er Usha Simon APRN MARGARINE CHURN OPERATOR Unavailable +[phone] Dangelo Salinas MD Unavailable Usha Simon APRN MARGARINE CHURN OPERATOR Unavailable +- [phone] Anastasia Stearns RN Unavailable +[phone] Germaine Lopez CHW Unavailable [phone] Robin Zepeda MD Unavailable [phone] Reason for Visit * Reason Onset Date Comments MyChart Communication 05/30/2013 Encounter Details Date Type Department Care Team (Latest Contact Info) Description 05/30/2013 MyC Medical Advice [facility] [place] [facility] [address] [place] [phone] Apple Sykes MD MyChart Communication Social History Tobacco Use Types [...] 8:30 AM CDT Office Visit [facility] [address] [place] [phone] Denise Woodson Ra, VEGETABLES COOK MARGARINE CHURN OPERATOR [address] [place], [place] 2377868 documented as of this encounter Visit Diagnoses Not on filedocumented in this encounter Care Teams Welding Process Specialist Relationship Specialty Start Date End Date Timmy Perez MD PCP - Obstetrics/Gynecology 03/02/08 08/07/15 Yung Madrigal MD RETIRED PCP - Orthopaedics Orthopedics 08/26/12 01/20/24 Winston Villatoro, AMELIE [facility] [address] [place] [address] PCP - Ophthalmology Ophthalmology 02/11/13 Apple Sykes MD [facility] [address] [place] [address] PCP - General Family Practice 05/04/13 10/25/16 Westley Bates MD XXX RETIRED XXX [address] [place] [address] [address]VD [address] [place] [address] PCP - ENT Otolaryngology 05/14/13 07/28/18 [facility] G[facility]mez APRN MARGARINE CHURN OPERATOR 3305 [facility] [place] [address] PCP - General Nurse Practitioner 10/26/16 02/06/17 Clara Cornell MD 3305 [facility] [place] [address] PCP - General Internal Medicine 02/07/17 09/20/20 Clara Cornell MD 8675 [place] [address] PCP - Assigned PCP 01/17/17 11/18/18 Denise Woodson Ra, APRN MARGARINE CHURN OPERATOR [address] [address] [place] [address] PCP - General Family Practice 09/21/20 Clara Cornell MD 8675 [place] [address] Assigned PCP 01/17/17 07/16/20 Denise Woodson Ra, APRN MARGARINE CHURN OPERATOR [address] [facility] [place] [place] [address] Assigned PCP 07/17/20 Usha Simon APRN MARGARINE CHURN OPERATOR 909 [facility]2121[place], [place] [address] Nurse Practitioner Neurological Surgery 01/24/24 Dangelo Salinas MD [address] [address] Neurology 01/27/24 Usha Simon APRN CNP [address]09 [place] [address], [place] [address] Assigned Neuroscience Provider 02/06/24 03/07/24 Anastasia Stearns, RN Lead Biomedical Engineer 02/06/24 Germaine Lopez, W Community Health Worker Primary Care - CC 02/18/24 Robin Zepeda MD [address] [id number] Assigned Neuroscience Provider 03/08/24 documented as of this encounter
--- OUTSIDE RECORDS SUMMARY | 2024-05-07 18:50 | XMS_ITS ---
Author Organization [place] Address [address] [place] [address] Care Team Providers Care District Engineer Name Role Phone Winston Villatoro OD Unavailable [phone] Denise Woodson Ra, APRN WAFER POLISHER Unavailable +[phone] Denise Woodson Ra, APRN WAFER POLISHER Primary Care Provid er Usha Simon APRN WAFER POLISHER Unavailable [phone] Dangelo Salinas MD Unavailable Anastasia Stearns RN Unavailable [phone] Germaine Lopez CHW Unavailable [phone] Robin Zepeda MD Unavailable [phone] Transitional Care Management Status:Closed (Closed) Start date:01/27/2024 Enrollment date:01/28/2024 End date:02/10/2024 Close reason:Goals met Continued Care and Services Coordination
--- OUTSIDE RECORDS SUMMARY | 2024-05-07 18:50 | XMS_ITS | Encounter Summary ---
Author Organization [place] Address [address] [place] [address] Care Team Providers Care Automobile Mechanic Motor Name Role Phone Timmy Perez MD Unavailable Unavailable Yung Madrigal MD Unavailable Unavailable Frw, None Primary Care Provider Unavailabl e Winston Villatoro OD Unavailable [phone] Apple Sykes MD Primary Care Provider Unavailab Westley Vera MD Unavailable [phone] Alessandra Cabrales APRN A/C TECH Primary Car e Provider Serum, Clara Garland MD Primary Care Provider Serum, Clara Garland MD Unavailable [phone] Serum, Clara Garland MD Unavailable [phone] Denise Woodson Ra, APRN A/C TECH Unavailable + [phone] Denise Woodson Ra, APRN A/C TECH Primary Care Provid er Usha Simon APRN A/C TECH Unavailable + [phone] Dangelo Salinas MD Unavailable Usha Simon APRN A/C TECH Unavailable + [phone] Anastasia Stearns RN Unavailable [phone] Germaine Lopez CHW Unavailable [phone] Robin Zepeda MD Unavailable [phone] Encounter Details Date Type Department Care Team (Late st Contact Info) Description 01/31/2006 [facility] [place] ENGINE REPAIRER PRODUCTION [address] [place] [phone] Timmy Perez MD Social History Tobacco Use [...] 06/08/2024 8:30 AM CDT Office Visit [facility] [address] [place] [address] Denise Woodson Ra, DIRECTOR OF BUSINESS SYSTEMS A/C TECH [address] [place], [place] [phone] documented as of this encounter Visit Diagnoses Not on filedocumented in this encounter Care Teams Automobile Mechanic Motor Relationship Specialty Start Date End Date Timmy Perez MD PCP - Obstetrics/Gynecology 03/02/08 08/07/15 Yung Madrigal MD RETIRED PCP - Orthopaedics Orthopedics 08/26/12 01/20/24 Frw, None PCP - General Family Practice 08/26/12 05/03/13 Winston Villatoro OD [facility] [address] [place] [address] PCP - Ophthalmology Ophthalmology 02/11/13 Apple Sykes MD [facility] [address] [facility] [address] [place] [address] PCP - General Family Practice 05/04/13 10/25/16 Westley Bates MD XXX RETIRED XXX [address] [place] [address] [address] [place], [place] 3[address] PCP - ENT Otolaryngology 05/14/13 07/28/18 Georgina-Alessandra Gómez APRN A/C TECH 3305 [facility] [place] [address] PCP - General Nurse Practitioner 10/26/16 02/06/17 Clara Cornell MD 3305 [facility] [address] [place] [address] PCP - General Internal Medicine 02/07/17 09/20/20 Clara Cornell MD 8675 [place] [address] PCP - Assigned PCP 01/17/17 11/18/18 Denise Woodson Ra, APRN A/C TECH [address] [place] [address] PCP - General Family Practice 09/21/20 Clara Cornell MD 8675 [place] [address] Assigned PCP 01/17/17 07/16/20 Denise Woodson Ra, APRN A/C TECH [address] [facility] [place] [address] Assigned PCP 07/17/20 Usha Simon APRN A/C TECH 9 [facility], [place] [address] Nurse Practitioner Neurological Surgery 01/24/24 Dangelo Salinas MD [address] [address] Neurology 01/27/24 Usha Simon APRN A/C TECH [address] [address] Assigned Neuroscience Provider 02/06/24 03/07/24 Anastasia Stearns, RN Lead Flight Steward 02/06/24 Germaine Lopez, W Community Health Worker Primary Care - CC 02/18/24 Robin Zepeda MD [address] [address] Assigned Neuroscience Provider 03/08/24 documented as of this encounter
[2024-05-07 18:56] LABS: Slide Review Reflex No
[2024-05-07 19:03] LABS: Appearance Urine Clear (Clear); Bilirubin Urine Negative (Negative); Blood Urine Trace-lysed (Negative); Color Urine Yellow (Yellow); Glucose Urine Negative (Negative); Ketones Urine Negative (Negative); Leukocyte Esterase Urine Negative (Negative); Nitrite Urine Negative (Negative); Protein Urine Negative (Negative); Specific Gravity Urine 1.015 (1.000-1.030); Urobilinogen Urine 0.2 (0.2-1.0)
[2024-05-07 19:07] LABS: Bacteria Urine Few; RBC Urine 0-2 (0-2); WBC Urine 0-2 (0-5)
[2024-05-07 19:18] LABS: Albumin* 4.6 g/dL (3.3-5.0); Chloride* 103 mmol/L (96-114); Sodium* 138 mmol/L (135-149)
[2024-05-07 19:19] LABS: Potassium* 4.3 mmol/L (3.6-5.1)
[2024-05-07 19:21] LABS: Alanine Aminotransferase* 15 U/L (4-35); Alkaline Phosphatase* 69 U/L (40-150); Anion Gap 5 mEq/L (7-15); Aspartate Amino Transferase* 29 U/L (12-35); Bilirubin Total* 1.1 mg/dL (0.1-1.5); Blood Urea Nitrogen* 18 mg/dL (5-24); Carbon Dioxide* 30 mmol/L (20-32); Creatinine* 0.8 mg/dL (0.5-1.5); Estimated Glomerular Filt Rate 91 ml/min; Glucose* 110 mg/dL (60-115); Total Protein* 7.7 g/dL (6.0-8.3)
[2024-05-07 19:22] LABS: Calcium* 9.8 mg/dL (8.4-10.6)
--- NOTE | 2024-05-07 19:24 | P.IMHP_ITS ---
Hospitalist- H&P: HPI History of Present Illness Date Seen: 05/07/24 Chief complaint: headache, R face tingling Narrative: Alcon Zamora is a 48 year old female past medical history significant for asthma, headaches, anxiety, depression, fibromuscular dysplasia, CKD stage 1, Lizy Danlos syndrome, arteriovenous fistula, CVA (December 2023), seizure disorder (December 2023) is admitted to medical floor from the ED for further workup stroke. Patient presented to ED with complaint of a headache in the back of her head, described as tingling, associated with right facial numbness and tingling as well as right arm and right leg numbness and tingling. Also concerned that her gait has been unsteady. Has denied motor weakness in any of her extremities. No recent fevers. Denies chest pain, cough, shortness of breath. No palpitations. No recent nausea, vomiting, diarrhea. On admission to the floor, slight headache remains, tingling to right face has improved, tingling of right in lower extremities nearly resolved. 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 She had a cerebral angiogram at [facility] with Dr. Gutierrez on 01/09/2024. She experience right-sided symptoms following this procedure but did not want to stay in the hospital, instead opted for an outpatient MRI which showed multiple acute ischemic infarcts in the frontal lobes, parietal lobes and left supra marginal gyrus. She was also found to have an incidental finding of fibromuscular dysplasia and a non occlusive dissection. Her neuro interventional physician recommended her Aspirin be increased from 81 mg to 325 mg. She was then admitted to this hospital on 01/13/2024 and noted to have a seizure on 01/14/2024 and was started on Keppra. She has been followed by Dr. Gutierrez and has been in the [facility], participating in stroke rehab. She is currently on 81 mg of aspirin daily. This evening, ED provider spoke with Dr. Torres, [facility], who is familiar with this patient. Dr. Torres recommends local hospitalization with a brain MRI with and without contrast in the morning. It has been recommended that there are no medication changes at this time. Continue on current medication regimen. Review of Systems Narrative: REVIEW OF SYSTEMS: Complete review of systems performed and negative unless otherwise stated in HPI or below. [facility] Medical History (Updated 05/07/24 @ 21:59 by Myriam Wang PA-C) Headache ?R51.9 - Headache, unspecified (ICD-10) 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, unspecified (ICD-10) Mild persistent asthma (09/27/22) ?J45.30 - Mild persistent asthma, uncomplicated (ICD-10) Asthma ?J45.909 - Unspecified asthma, uncomplicated (ICD-10) History of blood transfusion (1994) ?Z92.89 - Personal history of other medical treatment (ICD-10) History of vitamin D deficiency ?Z86.39 - Personal history of other endocrine, nutritional and metabolic disease (ICD-10) Anxiety and depression ?F41.9 - Anxiety disorder, unspecified (ICD-10) ?F32.A - Depression, unspecified (ICD-10) Fibromyalgia ?M79.7 - Fibromyalgia (ICD-10) Mild persistent asthma ?J45.30 - Mild persistent asthma, uncomplicated (ICD-10) H/O bronchopulmonary dysplasia ?Z87.09 - Personal history of other diseases of the respiratory system (ICD- 10) Stage 1 chronic kidney disease (11/16/20) ?N18.1 - Chronic kidney disease, stage 1 (ICD-10) Simple renal cyst (10/2020) ?N28.1 - Cyst of kidney, acquired (ICD-10) Asthma ?J45.909 - Unspecified asthma, uncomplicated (ICD-10) Surgical History History of laparoscopy ?Z98.890 - Other specified postprocedural states (ICD-10) S/P dilation and curettage (1994) ?Z98.890 - Other specified postprocedural states (ICD-10) H/O tubal ligation ?Z98.51 - Tubal ligation status (ICD-10) Status post excision of lipoma (2011) ?Z98.890 - Other specified postprocedural states (ICD-10) ?Z86.018 - Personal history of other benign neoplasm (ICD-10) History of medial meniscus repair of left knee (08/04/13) ?Z98.890 - Other specified postprocedural states (ICD-10) History of laparoscopic cholecystectomy (09/29/20) ?Z90.49 - Acquired absence of other specified parts of digestive tract (ICD- 10) History of hysterectomy for benign disease (2005) ?Z90.710 - Acquired absence of both cervix and uterus (ICD-10) History of catheter-based closure of atrial septal defect (06/2006) ?Z87.74 - Personal history of (corrected) congenital malformations of heart and circulatory system (ICD-10) Family History Maternal Grandmother Stroke Paternal Grandfather Diabetes Daughter Depression Social History Narrative: She recently moved to [place]. 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 She has a college education She exercises 5 days a week with walking in treadmill 2M She does not smoke She does not drink alcohol or use recreational drugs What is your current living situation?: I presently have a place to live Problems where you live: no known problems Problems where you live details: na In the past 12 months, utilities in danger of being shut off: no In past 12 months, lack of transportation kept you from medical appts, meetings, work, or getting things needed for daily living: no In the past 12 mos, have been you worried that your food would run out before you had money to buy more?: never true In the past 12 mos, the food you bought just didn't last and you didn't have money to buy more?: never true Highest level of school completed/degree received: Associate degree: occupational, technical, vocational program Smoking Status: Never smoker Do you use any of these nicotine containing products: None Second hand tobacco smoke exposure: No How often do you have a drink containing alcohol: never How often do you have six or more drinks on one occasion: Never AUDIT-C Alcohol total score: 0 Non-prescribed substance use: denies use Caffeine: Yes How often does anyone, including family, friends and others, physically hurt you : never How often does anyone, including family, friends and others, insult or talk down to you: never How often does anyone, including family, friends and others, threaten you with harm: never How often does anyone, including family, friends and others, scream or curse at you: never Little interest or pleasure in doing things: not at all Feeling down, depressed, or hopeless: not at all Are you using contraception or practicing any form of control: Yes (hysterectomy) service: No Meds Home Medications and Allergies Home Medications ?Medication ?Instructions ?Recorded ?Confirmed ?Type fluticasone furoate 200 1 inh inhalation DAILY 07/03/22 05/07/24 History mcg-vilanterol 25 mcg/dose inhalation powder (Breo Ellipta) albuterol sulfate 90 mcg/actuation 2 puff inhalation Q6H PRN 08/01/22 05/07/24 History aerosol inhaler magnesium 250 mg tablet 250 mg PO HS 08/02/22 05/07/24 History trazodone 100 mg tablet 100 mg PO HS sleep 08/02/22 05/07/24 History cetirizine 10 mg tablet (Zyrtec) 10 mg PO DAILY 10/08/23 05/07/24 History aspirin 325 mg tablet,delayed 325 mg PO DAILY 02/22/24 05/07/24 History release hydroxyzine HCl 25 mg tablet 25 mg PO 3XD PRN anxiety 05/07/24 05/07/24 History lorazepam 1 mg tablet 0.5 - 1 mg PO DAILY PRN dizziness 05/07/24 05/07/24 History oxcarbazepine 150 mg tablet 150 mg PO QPM 05/07/24 05/07/24 History Allergies Allergy/AdvReac Type Severity Reaction Status Date / Time bupropion Allergy Intermediate Diarrhea Verified 05/07/24 18:21 codeine Allergy Intermediate epigastric Verified 05/07/24 18:21 pain erythromycin base Allergy Intermediate stomach Verified 05/07/24 18:21 upset, diarrhea Exam Narrative: Exam Narrative: PHYSICAL EXAM General: Pleasant, conversant, NAD HEENT: Normocephalic, atraumatic, sclera white, EOMI, oral mucosa moist Cardiovascular: RRR, S1S2. No pitting edema Pulmonary: CTA bilaterally without rhonchi, rales, expiratory wheezes. 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 AROMI. Neurovascularly intact Skin: Warm, dry. Const: Vital Signs, click to edit/add: Vital Signs - 24 hr 05/07/24 17:45 Temperature 97.8 F Pulse Rate [Pulse Oximeter] 97 Respiratory Rate 18 Blood Pressure [Ri ght Upper Arm] 169/84 H Pulse Oximetry 97 Oxygen Delivery Me thod Room Air Hospitalist - H&P: Result Labs Labs: Short CBC 05/07/24 Range/Units 18:08 WBC 6.82 (4.50-11.00) K/uL Hgb 14.1 (12.0-16.0) gm/dL Hct 43.0 (33.0-51.0) % Plt Count 180 (140-440) K/uL BMP 05/07/24 18:08 Sodium 138 Potassium 4.3 Chloride 103 Carbon Dioxide 30 BUN 18 Creatinine 0.8 Glucose 110 Calcium 9.8 Liver Function 05/07/24 Range/Units 18:08 Total Bilirubin 1.1 (0.1-1.5) mg/dL AST 29 (12-35) U/L ALT 15 (4-35) U/L Alkaline Phosphatase 69 (40-150) U/L Albumin 4.6 (3.3-5.0) g/dL Urine 05/07/24 Range/Units 18:20 Urine Color Yellow (Yellow) Urine Appearance Clear (Clear) Urine pH 7.0 (5.0-8.5) Ur Specific [place] 1.015 (1.000-1.030) Urine Protein Negative (Negative) Urine Glucose (UA) Negative (Negative) ECG Attestation: I personally reviewed and interpreted this ECG as follows: Interpretation: Sinus rhythm with occasional PVCs, ventricular rate 67, QTC [address] scan - head: Attestation: I have reviewed the pertinent imaging results. Radiologist's impression: TECHNIQUE: CT Head without i.v. contrast. Coronal and sagittal reformats were obtained. COMPARISON: None FINDINGS: CSF space: The ventricles are normal for age. Brain: No evidence of mass, acute infarction or hemorrhage is seen. No mass-effect or midline shift is seen. The brain parenchyma is otherwise normal in appearance with preservation of the pollack-white matter junction. Calvarium: The visualized paranasal sinuses are well aerated. The mastoid air cells are clear. The visualized orbits are grossly unremarkable. The calvarium is unremarkable in appearance with no fractures identified. IMPRESSION: 1. No evidence of acute infarction, intracranial hemorrhage, or mass-effect seen. CTA neck: Attestation: I have reviewed the pertinent imaging results. Radiologist's impression: PRELIMINARY REPORT Study:?CT-Neck Angio Angio CODE STROKE-05/07/2024 6:20:45 PM Ordering Physician:Juan Daniel Rico Preliminary Report: PRELIMINARY IMPRESSIONS: 1. The [place] of [place] is unremarkable with no significant stenosis, occlusion, or aneurysm identified. 2. The neck vessels shows no evidence of dissection, significant stenosis in the common or internal carotid arteries, vertebral arteries, or visualized great vessels of the chest. Read by:?Yann Harris MD @05/07/2024 6:31:16 PM Assessment and Plan Assessment and plan (1) Headache: Problem comment: Acute on chronic, recurrent, not previously in the posterior region however, onset 2:30 this afternoon while working CT head shows no evidence of acute infarction, intracranial hemorrhage, or mass- effect seen. CTA head/neck unremarkable MRI with/without contrast in morning Pain management as needed Gentle IV hydration Status: Acute (2) Paresthesia: Problem comment: Numbness and tingling of right side of face and right arm and leg, onset 2:30 this afternoon while working As above, no acute findings on CT/CTA head/neck ED provider discussed with Dr. Torres, [facility] tele neurology, recommending local admission Telemetry Neurochecks Gentle IV hydration MRI brain with/without contrast in the morning PT/OT consults Seizure precautions Status: Acute (3) Seizure: Problem comment: Post procedural (cerebral angiogram) seizure x2, December 2023 Continue Keppra, currently taking 375 mg b.i.d., verified with patient Seizure precautions Followed by [facility] Status: Chronic (4) Ischemic cerebrovascular accident (CVA): Problem comment: Stroke 01/09/2024 after cerebral angiogram at [facility] MRI on 01/13/24 showed Numerous scattered foci of diffusion restriction in the l eft greater than right frontal cortex, bilateral centrum semiovale, left supra marginal gyrus compatible with acute ischemic infarcts. Infarcts involve the left precentral and postcentral gyrus. No pathologic susceptible artifacts. No midline shift. No hydrocephalus. No acute intracranial hemorrhage CTA on 01/13/24 showed symmetric enlargement of the left occipital artery with early opacification of the left sigmoid sinus is consistent with the known dural arteriovenous fistula. Also noted on catheter angiogram 01/09/2024: A1C 5.3, LDL 102 TTE with bubble study 01/[address] Garcia, [facility] Cardiology, while a technically limited exam, shows normal global systolic function with EF 55- 60%, mild mitral regurgitation Discharged to inpatient rehab at the [facility] following hospitalization here in December. Currently in outpatient therapy at [facility] Last visit with [facility] 04/14/24 Verified with patient, currently on 81 mg aspirin daily. Has discontinued Crestor secondary to muscle pain Status: Chronic (5) Dural arteriovenous fistula: Problem comment: History of left-sided pulsatile tinnitus and an enlarged left occipital artery by CTA 01/09/24 catheter angiogram at [facility] shows left sigmoid dural arteriovenous fistula, also noted on CT head 01/13/24 Status: Chronic (6) History of cerebral angiography: Problem comment: December 2023 at [facility], resulted in CVA Followed by [facility] in [place], last visit 05/01/24. 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 COL3A1 test was negative. She has 3 grownup children. No previous organ rupture or blood vessel rupture. History of ASD which was closed in 2005 at [place]. Status: Chronic Plan Observation overnight, MRI in the morning with tele neurology follow-up Total Time Spent Total Time Spent: Total time spent caring for the patient today was 70 minutes. This includes time spent for the visit reviewing the chart, time spent during the visit, time spent after the visit and documentation and planning in coordination of care.
[2024-05-07] MEDS: 0.9 % SODIUM CHLORIDE 1000 ml 1,000 ML 100 ML IV (21:32)
[2024-05-07] MEDS: SODIUM CHLORIDE 0.9 % (FLUSH) 10 ML SYRINGE 5 ML IVF (21:33)
[2024-05-07] MEDS: levETIRAcetam 500 MG TABLET 375 MG PO (22:24)
[2024-05-07] MEDS: TRAZODONE HCL 50 MG TABLET 100 MG PO (22:25)
[2024-05-08] VITALS (8 sets, daily range): BP systolic 119–136; BP diastolic 74–89; PULSE 54–65; RESP 16–18; TEMP 36.3–36.7; O2SAT 96–98
--- NOTE | 2024-05-08 04:46 | PC.NURSE ---
Shift note: Pt was admitted to the unit from ED accompanied by . On arrival, pt reported headache of 4. Vital signs stable on arrival, oriented to room and made comfortable in bed. 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 Pt has steady gait but moves slow and being careful to avoid fall. Neuro check and seizure precaution in place. 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 Pt had adequate sleep.
--- NOTE | 2024-05-08 06:00 | CRLHL7_ITS ---
For Patients: As a result of the Century Cures Act, medical imaging exams and procedure reports are released immediately into your electronic medical record. You may view this report before your referring provider. If you have questions, please contact your health care provider. INDICATION: Right-sided paresthesias. TECHNIQUE: Brain MRI without contrast. COMPARISON: Head CT from 05/07/2024. FINDINGS: No evidence of acute ischemia. Curvilinear susceptibility artifact within the left central sulcus, postcentral sulcus and left posterior superior temporal lobe, compatible with chronic subarachnoid hemosiderin. A small FLAIR hyperintense foci scattered within the supratentorial white matter, nonspecific but typical for chronic microvascular ischemic change. No mass effect or herniation. No hydrocephalus or extra-axial collections. The pituitary gland, parasellar structures and optic chiasm are normal. Tiny chronic infarct within the left posterior cerebellum. All the major intracranial vascular structures demonstrate normal flow-related signal. The orbital contents are normal. No calvarial or skull base marrow replacing process. No obstructive sinus disease. No extracranial soft tissue findings. IMPRESSION: 1. No evidence of acute ischemia. 2. Chronic subarachnoid hemosiderin deposition left central sulcus, postcentral sulcus and posterior superior temporal lobe. This could be due to sequela of prior trauma, vasculitis or a vascular malformation among other etiologies. 3. Minimal chronic microvascular ischemic changes and a few small chronic infarcts within the cerebellar hemispheres. Dictated by Dario Mcdaniel MD @ 05/08/2024 11:51:39 AM (Electronically Signed)
[2024-05-08 06:54] LABS: Hematocrit 40.6 % (33.0-51.0); Hemoglobin* 13.4 gm/dL (12.0-16.0); Mean Corpuscular HGB Conc 33 gm/dL (32-36); Mean Corpuscular Hemoglobin 30 pg (26-34); Mean Corpuscular Volume 91 fL (80-100); Platelet Count* 157 K/uL (140-440); Red Blood Count 4.44 m/uL (4.00-5.20)
[2024-05-08 07:17] LABS: Chloride* 107 mmol/L (96-114); Potassium* 4.2 mmol/L (3.6-5.1); Sodium* 140 mmol/L (135-149)
[2024-05-08 07:20] LABS: Anion Gap 6 mEq/L (7-15); Carbon Dioxide* 27 mmol/L (20-32); Creatinine* 0.7 mg/dL (0.5-1.5); Est. Creatinine Clearance* 100.22; Estimated Glomerular Filt Rate 107 ml/min
[2024-05-08 07:21] LABS: Blood Urea Nitrogen* 13 mg/dL (5-24); Calcium* 9.1 mg/dL (8.4-10.6); Glucose* 87 mg/dL (60-115)
[2024-05-08 07:23] LABS: Slide Review Reflex No
[2024-05-08] MEDS: ACETAMINOPHEN 500 MG TABLET 1000 MG PO (07:52)
[2024-05-08] MEDS: 0.9 % SODIUM CHLORIDE 1000 ml 1,000 ML 100 ML IV (07:54)
[2024-05-08] MEDS: levETIRAcetam 500 MG TABLET 375 MG PO (09:04)
[2024-05-08] MEDS: ASPIRIN 81 MG TABLET EC PO (09:04)
[2024-05-08] MEDS: SODIUM CHLORIDE 0.9 % (FLUSH) 10 ML SYRINGE 5 ML IVF (11:45)
--- NOTE | 2024-05-08 12:40 | P.DS_ITS ---
DS: Providers Provider Date Seen: 05/08/24 Date of admission: 05/07/24 19:54 Primary care physician: Not a Local Provider Admitting Clinician: Anna Villarreal MD Consults: OT, PT, Stroke Neurology Attending Physician on discharge: Alicia Campa MD Date of Discharge: 05/08/24 DS: Diagnosis Discharge Diagnosis (1) Headache: Status: Acute Problem details: - Acute on chronic, recurrent - improved on hospital day 1 - reassuring head CT and MRI - per Stroke Neurology, increase home dose of Magnesium, close f/u with PCP and Neurology team given comorbidities (2) Paresthesia: Status: Acute Problem details: - numbness and tingling of right side of face, RUE, RLE (onset 1430 on 05/07), resolved during stay - followed by Stroke Neurology who felt this was migraine variant vs abnormal seizure - no needs identified by OT/PT teams (3) Seizure: Status: Chronic Problem details: - Post procedural (cerebral angiogram) seizure x2, December 2023 - Continue Keppra, currently taking 375 mg BID (verified with patient) - routine f/u with Neurology at [place] (4) Ischemic cerebrovascular accident (CVA): Status: Chronic Problem details: - stroke 01/09/2024 after cerebral angiogram at [place]; presenting symptom was R hand weakness - MRI on 01/13/24: numerous scattered foci of diffusion restriction in the left greater than right frontal cortex, bilateral centrum semiovale, left supra marginal gyrus compatible with acute ischemic infarcts. Infarcts involve the left precentral and postcentral gyrus. No pathologic susceptible artifacts. No midline shift. No hydrocephalus. 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, also noted on catheter angiogram 01/09/24 - December 2023: A1C 5.3, LDL 102 - TTE with bubble study 01/14: technically limited exam, shows normal global systolic function with EF 55-60%, mild mitral regurgitation - discharged to inpatient rehab at the [facility] following hospitalization here in December. Currently in outpt therapy at [facility] - follows with [facility] - currently on 81 mg aspirin daily. Has discontinued Crestor secondary to muscle pain (5) Dural arteriovenous fistula: Status: Chronic Problem details: History of left-sided pulsatile tinnitus and an enlarged left occipital artery by CTA 01/09/24 catheter angiogram at [facility] shows left sigmoid dural arteriovenous fistula, also noted on CT head 01/13/24 (6) Fibromuscular dysplasia: Status: Chronic Problem details: As noted 01/09/2024 catheter angiogram at [facility] Continue current aspirin therapy which has been reduced to 81 mg daily, verified by patient, given recent gastritis (7) Lizy-Danlos syndrome: Status: Chronic Problem details: - 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 COL3A1 test was negative. She has 3 older children. - no previous organ rupture or blood vessel rupture - history of ASD which was closed in 2005 at [place]. DS: Summary Hospital Course Hospital Course: Alcon is a 48 yo female with multiple medical comorbidities who presented to the hospital on 05/07 for headache and paresthesias. See details, above. Improved on hospital day 1 with reassuring/stable MRI, appropriate for d/c home. Will see PCP and Neurology team as an outpatient. Time Spent with Patient Time attestation: Total time spent providing and/or coordinating discharge services: Time spent: Less than 30 minutes Exam Narrative: Exam Narrative: Alcon is sitting comfortably in bed, nontoxic No resting tremor, gait not observed Const: Vital Signs, click to edit/add: Vital Signs - 24 hr 05/07/24 17:45 05/07/24 18:27 05/07/24 18:28 Temperature 97.8 F Pulse Rate 70 66 Pulse Rate [Left P ulse Oximeter] Pulse Rate [Pulse Oximeter] 97 Respiratory Rate 18 Blood Pressure 150/105 H Blood Pressure [Le ft Arm] Blood Pressure [Ri ght Upper Arm] 169/84 H Pulse Oximetry 97 99 99 Oxygen Delivery Me thod Room Air 05/07/24 18:30 05/07/24 18:31 05/07/24 18:45 Temperature Pulse Rate 79 77 65 Pulse Rate [Left P ulse Oximeter] Pulse Rate [Pulse Oximeter] Respiratory Rate Blood Pressure 151/95 H Blood Pressure [Le ft Arm] Blood Pressure [Ri ght Upper Arm] Pulse Oximetry 99 99 98 Oxygen Delivery Me thod 05/07/24 18:47 05/07/24 19:00 05/07/24 19:02 Temperature Pulse Rate 69 76 Pulse Rate [Left P ulse Oximeter] Pulse Rate [Pulse Oximeter] Respiratory Rate Blood Pressure 142/76 H 125/63 Blood Pressure [Le ft Arm] Blood Pressure [Ri ght Upper Arm] Pulse Oximetry 97 97 Oxygen Delivery Me thod 05/07/24 19:16 05/07/24 19:18 05/07/24 19:30 Temperature Pulse Rate 68 65 Pulse Rate [Left P ulse Oximeter] Pulse Rate [Pulse Oximeter] Respiratory Rate Blood Pressure 131/85 Blood Pressure [Le ft Arm] Blood Pressure [Ri ght Upper Arm] Pulse Oximetry 99 97 Oxygen Delivery Me thod 05/07/24 19:31 05/07/24 19:45 05/07/24 19:47 Temperature Pulse Rate 116 H 60 61 Pulse Rate [Left P ulse Oximeter] Pulse Rate [Pulse Oximeter] Respiratory Rate Blood Pressure 141/113 H 152/87 H Blood Pressure [Le ft Arm] Blood Pressure [Ri ght Upper Arm] Pulse Oximetry 98 96 96 Oxygen Delivery Me thod 05/07/24 19:48 05/07/24 20:00 05/07/24 20:02 Temperature Pulse Rate 67 62 62 Pulse Rate [Left P ulse Oximeter] Pulse Rate [Pulse Oximeter] Respiratory Rate Blood Pressure 133/78 Blood Pressure [Le ft Arm] Blood Pressure [Ri ght Upper Arm] Pulse Oximetry 97 98 97 Oxygen Delivery Me thod 05/07/24 20:25 05/07/24 20:31 05/07/24 20:52 Temperature 98.3 F 98.3 F Pulse Rate Pulse Rate [Left P ulse Oximeter] 61 61 Pulse Rate [Pulse Oximeter] Respiratory Rate 18 18 18 Blood Pressure Blood Pressure [Le ft Arm] 137/89 137/89 Blood Pressure [Ri ght Upper Arm] Pulse Oximetry 98 98 98 Oxygen Delivery Me thod Room Air Room Air Room Air 05/07/24 20:52 05/07/24 21:18 05/07/24 22:33 Temperature Pulse Rate 65 Pulse Rate [Left P ulse Oximeter] 60 60 Pulse Rate [Pulse Oximeter] Respiratory Rate 18 Blood Pressure Blood Pressure [Le ft Arm] Blood Pressure [Ri ght Upper Arm] Pulse Oximetry Oxygen Delivery Me thod 05/07/24 22:33 05/08/24 01:18 05/08/24 02:27 Temperature 97.6 F 97.8 F Pulse Rate Pulse Rate [Left P ulse Oximeter] 60 54 L 54 L Pulse Rate [Pulse Oximeter] Respiratory Rate 18 18 Blood Pressure Blood Pressure [Le ft Arm] 124/76 119/76 Blood Pressure [Ri ght Upper Arm] Pulse Oximetry 97 96 [facility] Room Air 05/08/24 04:43 05/08/24 07:00 05/08/24 07:00 Temperature 98.1 F Pulse Rate Pulse Rate [Left P ulse Oximeter] 65 61 61 Pulse Rate [Pulse Oximeter] Respiratory Rate 16 16 Blood Pressure Blood Pressure [Le ft Arm] 133/74 Blood Pressure [Ri ght Upper Arm] Pulse Oximetry 97 Oxygen Delivery Nj thod Room Air 05/08/24 07:14 05/08/24 07:52 05/08/24 09:00 Temperature 98.1 F Pulse Rate 61 Pulse Rate [Left P ulse Oximeter] 61 Pulse Rate [Pulse Oximeter] Respiratory Rate Blood Pressure Blood Pressure [Le ft Arm] Blood Pressure [Ri ght Upper Arm] Pulse Oximetry Oxygen Delivery Nj thod 05/08/24 11:39 Temperature 97.4 F L Pulse Rate Pulse Rate [Left P ulse Oximeter] 64 Pulse Rate [Pulse Oximeter] Respiratory Rate 16 Blood Pressure Blood Pressure [Le ft Arm] 136/89 Blood Pressure [Ri ght Upper Arm] Pulse Oximetry 98 [facility] DS: Data Data Completed and Pending Labs on day of discharge: Labs from last 24 hours 05/08/24 05/07/24 05/07/24 06:30 18:20 18:08 WBC 5.80 6.82 RBC 4.44 4.70 Hgb 13.4 14.1 Hct 40.6 43.0 MCV 91 92 MCH 30 30 MCHC 33 33 RDW Coeff of [place] 11.7 Plt Count 157 180 Neut % (Auto) 51.7 Lymph % (Auto) 32.0 [place] % (Auto) 6.9 Eos % (Auto) 8.9 H Baso % (Auto) 0.4 Neut # (Auto) 3.52 Lymph # (Auto) 2.18 [place] # (Auto) 0.50 Eos # (Auto) 0.60 H Baso # (Auto) 0.03 Abs Immat Gran (auto) 0.01 Imm/Tot Granulo (auto) 0.1 Sodium 140 138 Potassium 4.2 4.3 Chloride 107 103 Carbon Dioxide 27 30 Anion Gap 6 L 5 L BUN 13 18 Creatinine 0.7 0.8 Estimated Creat Clear 100.22 87.70 Estimated GFR 107 91 Glucose 87 110 Calcium 9.1 9.8 Total Bilirubin 1.1 AST 29 ALT 15 Alkaline Phosphatase 69 Total Protein 7.7 Albumin 4.6 TSH 8.330 H Urine Color Yellow Urine Appearance Clear Urine pH 7.0 Ur Specific [place] 1.015 Urine Protein Negative Urine Glucose (UA) Negative Urine Ketones Negative Urine Blood Trace-lysed A Urine Nitrite Negative Urine Bilirubin Negative Urine Urobilinogen 0.2 Ur Leukocyte Esterase Negative Urine RBC 0-2 Urine WBC 0-2 Ur Squamous Epith Cells None Urine Bacteria Few A Preliminary micro results at discharge 05/07/24 18:20 Urine Culture - Preliminary Urine,Clean Catch No growth. Discharge Plan Discharge Disposition: Home, Self-Care Date of Admission: 05/07/24 19:54 Attending Provider on Discharge: Alicia Campa Primary Care Provider: Provider,Not a Local Condition: Improved Anticipated Discharge Date/Time: 05/08/24 11:54 Discharge Medications: New aspirin 81 mg Tablet,Delayed Release (Dr/Ec) 81 mg PO DAILY Qty: 30 0RF Continued cetirizine [Zyrtec] 10 mg tablet 10 mg PO DAILY albuterol sulfate 90 mcg/actuation HFA aerosol inhaler 2 puff inhalation Q6H PRN magnesium 250 mg tablet 250 mg PO HS fluticasone furoate-vilanterol [Breo Ellipta] 200-25 mcg/dose blister with device 1 inh INHALATION DAILY ketorolac 10 mg tablet 10 mg PO Q6H PRN (Reason: pain) 5 Days Qty: 20 0RF trazodone 100 mg tablet 100 mg PO HS oxcarbazepine 150 mg tablet 150 mg PO HS Patient Comments: HAS NOT STARTED YET 05/08 hydroxyzine HCl 25 mg tablet 25 mg PO TID PRN (Reason: anxiety) lorazepam 1 mg tablet 0.5 - 1 mg PO DAILY PRN (Reason: dizziness) levetiracetam [Keppra] 750 mg tablet 375 mg PO BID Discontinued aspirin 325 mg tablet,delayed release (DR/EC) 325 mg PO DAILY Discharge Orders: Discharge Order (Routine); Ordered 05/08/24 Ordered By: Alicia Campa Additional Instructions: Increase Magnesium to 400mg Magnesium Oxide per Neurology. No other changes to home medications; continue home dose of Aspirin (81mg). Routine f/u with PCP and Neurology team at [place]. Activity Level: Activity as Tolerated Discharge Diet: Regular Follow Up Appointments: EFRAÍN MAYA RA, DATE NIGHT SITTER, PROCUREMENT COST COORDINATOR [Referring] - (hospital f/u appt in 7-10 days please) Generic,Amb Provider [Staff Physician] - Provider,Not a Local [Primary Care Provider] - Forms: [employer] Info Instructions
--- NOTE | 2024-05-08 15:22 | PC.NURSE ---
Discharge. Pleasant and cooperative patient discharged to home, via wheelchair. Pt stated tingling and numbness resolved from previous day, though there was a complaint of headache. Pt given Tylenol and stated relief. Neuro consult and MRI were completed this am. Discharge education was provided, including diagnosis info, symptoms to report and medication changes. No further questions asked, saline lock removed with tip intact.
== END 2024-05-08 14:50 | disposition home or self-care (01) ==
LOC: ED 19:26 → MEDSURG 19:55
PROVIDERS: Physician Assistant; Admitting Provider Family Medicine; Emergency Provider Family Medicine; Visit Provider Family Medicine
DX: R20.2 Paresthesia of skin (principal); Z86.73 Personal history of transient ischemic attack (TIA), and cerebral infarction without residual deficits; R51.9 Headache, unspecified; I77.0 Arteriovenous fistula, acquired; I77.3 Arterial fibromuscular dysplasia; Q79.60 Ehlers-Danlos syndrome, unspecified; R56.9 Unspecified convulsions; F41.9 Anxiety disorder, unspecified; F32.A Depression, unspecified; N18.1 Chronic kidney disease, stage 1; M79.7 Fibromyalgia; J45.909 Unspecified asthma, uncomplicated; Z79.82 Long term (current) use of aspirin; Z98.51 Tubal ligation status; Z87.09 Personal history of other diseases of the respiratory system; Z87.74 Personal history of (corrected) congenital malformations of heart and circulatory system; Z86.79 Personal history of other diseases of the circulatory system; Z86.39 Personal history of other endocrine, nutritional and metabolic disease; Z86.018 Personal history of other benign neoplasm; Z92.89 Personal history of other medical treatment; Z90.49 Acquired absence of other specified parts of digestive tract; Z90.710 Acquired absence of both cervix and uterus; Z98.890 Other specified postprocedural states
CPT/HCPCS: 36415; 70450; 70496; 70498; 70551; 80048; 80053; 81001; 84443; 85025; 85027; 87086; 93005; 94761; 96360; 96361; 97112; 97116; 97162; 97166; 99215; 99284; 99291; G0378; A9270; J7030; Q9967

== ENCOUNTER 2024-05-14 09:57 | Emergency (ER) | payer OTHER, SELFPAY ==
[2024-05-14] VITALS (66 sets, daily range): BP systolic 124–156; BP diastolic 62–92; PULSE 62–92; RESP 18–20; TEMP 36.3–36.6; O2SAT 95–100; BMI 32.7
--- NOTE | 2024-05-14 10:59 | ED_ITS ---
HPI - Chest Pain General Time Seen by Provider: 10:59 Date Seen: 05/14/24 Chief Complaint: Chest Pain Stated Complaint: Chest pain pressure Time Seen by Provider: 05/14/24 10:58 Source: patient and RN notes reviewed Mode of arrival: ambulatory Limitations: no limitations History of Present Illness HPI narrative: Jose is a 48-year-old female coming in with left chest is comfort that feels like a pressure that goes into her left upper arm. She had 2 episodes of brief pain yesterday that were very self limited. When she woke up at 7:00 a.m. her symptoms were there. She got up to eat breakfast, took her medicines including her aspirin, instead of 81 mg of aspirin she actually took 3 of these given her chest symptoms. Pressure has not gone away. Nothing really makes it worse or better. There is no positional change. It does not hurt to breathe, no shortness of breath, no respiratory change with it. There are no GI symptoms with this. 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 This did show fibromuscular dysplasia as well. She has had a history of an ASD closure at [facility] in 2005. Patient has not had prior chest pain symptoms like this before. MD complaint: chest heaviness Prior episodes: No Related Data Home Medications ?Medication ?Instructions ?Recorded ?Confirmed fluticasone furoate 200 1 inh inhalation DAILY 07/03/22 05/14/24 mcg-vilanterol 25 mcg/dose inhalation powder (Breo Ellipta) albuterol sulfate 90 mcg/actuation 2 puff inhalation Q6H PRN 08/01/22 05/14/24 aerosol inhaler magnesium 250 mg tablet 250 mg PO HS 08/02/22 05/14/24 trazodone 100 mg tablet 100 mg PO HS sleep 08/02/22 05/14/24 cetirizine 10 mg tablet (Zyrtec) 10 mg PO DAILY 10/08/23 05/14/24 hydroxyzine HCl 25 mg tablet 25 mg PO TID PRN anxiety 05/07/24 05/14/24 lorazepam 1 mg tablet 0.5 - 1 mg PO DAILY PRN dizziness 05/07/24 05/14/24 oxcarbazepine 150 mg tablet 150 mg PO HS 05/07/24 05/14/24 levetiracetam 750 mg tablet 375 mg PO BID 05/08/24 05/14/24 (Keppra) oxcarbazepine 150 mg tablet 150 mg PO DAILY 05/14/24 05/14/24 (Trileptal) rosuvastatin 20 mg tablet 20 mg PO QPM 05/14/24 05/14/24 Previous Rx's ?Medication ?Instructions ?Recorded ketorolac 10 mg tablet 10 mg PO Q6H PRN pain 5 days #20 07/03/22 tabs aspirin 81 mg tablet,delayed 81 mg PO DAILY #30 tabs 05/08/24 release Allergies Allergy/AdvReac Type Severity Reaction Status Date / Time bupropion Allergy Intermediate Diarrhea Verified 05/14/24 10:14 codeine Allergy Intermediate epigastric Verified 05/14/24 10:14 pain erythromycin base Allergy Intermediate stomach Verified 05/14/24 10:14 upset, diarrhea Review of Systems Status of ROS Reports: 6 or more systems reviewed and unremarkable except as noted in History and below [facility] Medical History Headache ?R51.9 - Headache, unspecified (ICD-10) 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, unspecified (ICD-10) Mild persistent asthma (09/27/22) ?J45.30 - Mild persistent asthma, uncomplicated (ICD-10) Asthma ?J45.909 - Unspecified asthma, uncomplicated (ICD-10) History of blood transfusion (1994) ?Z92.89 - Personal history of other medical treatment (ICD-10) History of vitamin D deficiency ?Z86.39 - Personal history of other endocrine, nutritional and metabolic disease (ICD-10) Anxiety and depression ?F41.9 - Anxiety disorder, unspecified (ICD-10) ?F32.A - Depression, unspecified (ICD-10) Fibromyalgia ?M79.7 - Fibromyalgia (ICD-10) Mild persistent asthma ?J45.30 - Mild persistent asthma, uncomplicated (ICD-10) H/O bronchopulmonary dysplasia ?Z87.09 - Personal history of other diseases of the respiratory system (ICD- 10) Stage 1 chronic kidney disease (11/16/20) ?N18.1 - Chronic kidney disease, stage 1 (ICD-10) Simple renal cyst (10/2020) ?N28.1 - Cyst of kidney, acquired (ICD-10) Asthma ?J45.909 - Unspecified asthma, uncomplicated (ICD-10) Surgical History History of laparoscopy ?Z98.890 - Other specified postprocedural states (ICD-10) S/P dilation and curettage (1994) ?Z98.890 - Other specified postprocedural states (ICD-10) H/O tubal ligation ?Z98.51 - Tubal ligation status (ICD-10) Status post excision of lipoma (2011) ?Z98.890 - Other specified postprocedural states (ICD-10) ?Z86.018 - Personal history of other benign neoplasm (ICD-10) History of medial meniscus repair of left knee (08/04/13) ?Z98.890 - Other specified postprocedural states (ICD-10) History of laparoscopic cholecystectomy (09/29/20) ?Z90.49 - Acquired absence of other specified parts of digestive tract (ICD- 10) History of hysterectomy for benign disease (2005) ?Z90.710 - Acquired absence of both cervix and uterus (ICD-10) History of catheter-based closure of atrial septal defect (06/2006) ?Z87.74 - Personal history of (corrected) congenital malformations of heart and circulatory system (ICD-10) Family History Maternal Grandmother Stroke Paternal Grandfather Diabetes Daughter Depression Social History Narrative: She recently moved to [place]. 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 She has a college education She exercises 5 days a week with walking in treadmill 2M She does not smoke She does not drink alcohol or use recreational drugs What is your current living situation?: I presently have a place to live Problems where you live: no known problems Problems where you live details: na In the past 12 months, utilities in danger of being shut off: no In past 12 months, lack of transportation kept you from medical appts, meetings, work, or getting things needed for daily living: no In the past 12 mos, have been you worried that your food would run out before you had money to buy more?: never true In the past 12 mos, the food you bought just didn't last and you didn't have money to buy more?: never true Highest level of school completed/degree received: Associate degree: occupational, technical, vocational program Smoking Status: Never smoker Do you use any of these nicotine containing products: None Second hand tobacco smoke exposure: No How often do you have a drink containing alcohol: never How often do you have six or more drinks on one occasion: Never AUDIT-C Alcohol total score: 0 Non-prescribed substance use: denies use Caffeine: Yes How often does anyone, including family, friends and others, physically hurt you : never How often does anyone, including family, friends and others, insult or talk down to you: never How often does anyone, including family, friends and others, threaten you with harm: never How often does anyone, including family, friends and others, scream or curse at you: never Little interest or pleasure in doing things: not at all Feeling down, depressed, or hopeless: not at all Are you using contraception or practicing any form of control: Yes (hysterectomy) service: No Exam Const Vital Signs, click to edit/add: Vital Signs - 24 hr 05/14/24 10:06 05/14/24 10:10 05/14/24 10:11 Temperature 97.4 F L Pulse Rate 76 77 Pulse Rate [Right Pulse Oximeter] 75 Respiratory Rate 18 Blood Pressure 149/92 H Blood Pressure [Left Upper Arm] 149/92 H Pulse Oximetry 100 100 100 Oxygen Delivery Method Room Air 05/14/24 10:15 05/14/24 10:30 05/14/24 10:45 Temperature Pulse Rate 74 71 72 Pulse Rate [Right Pulse Oximeter] Respiratory Rate Blood Pressure Blood Pressure [Left Upper Arm] Pulse Oximetry 100 98 98 Oxygen Delivery Method 05/14/24 11:12 05/14/24 11:14 05/14/24 11:15 Temperature Pulse Rate 79 74 Pulse Rate [Right Pulse Oximeter] Respiratory Rate Blood Pressure Blood Pressure [Left Upper Arm] Pulse Oximetry 96 98 100 Oxygen Delivery Method 05/14/24 11:34 05/14/24 11:35 05/14/24 11:45 Temperature Pulse Rate 71 72 72 Pulse Rate [Right Pulse Oximeter] Respiratory Rate Blood Pressure 147/81 H Blood Pressure [Left Upper Arm] Pulse Oximetry 96 96 98 Oxygen Delivery Method 05/14/24 12:00 05/14/24 12:01 05/14/24 12:02 Temperature Pulse Rate 75 71 75 Pulse Rate [Right Pulse Oximeter] Respiratory Rate Blood Pressure 142/83 H Blood Pressure [Left Upper Arm] Pulse Oximetry 99 98 99 Oxygen Delivery Method 05/14/24 12:15 05/14/24 12:30 05/14/24 12:32 Temperature Pulse Rate 67 72 83 Pulse Rate [Right Pulse Oximeter] Respiratory Rate Blood Pressure 146/85 H Blood Pressure [Left Upper Arm] Pulse Oximetry 96 96 97 Oxygen Delivery Method 05/14/24 12:45 05/14/24 13:00 05/14/24 13:01 Temperature Pulse Rate 77 67 67 Pulse Rate [Right Pulse Oximeter] Respiratory Rate Blood Pressure 147/82 H Blood Pressure [Left Upper Arm] Pulse Oximetry 97 98 98 Oxygen Delivery Method 05/14/24 13:02 05/14/24 13:15 05/14/24 13:30 Temperature Pulse Rate 69 74 62 Pulse Rate [Right Pulse Oximeter] Respiratory Rate Blood Pressure Blood Pressure [Left Upper Arm] Pulse Oximetry 98 98 97 Oxygen Delivery Method 05/14/24 13:31 05/14/24 14:06 05/14/24 14:15 Temperature Pulse Rate 72 71 91 Pulse Rate [Right Pulse Oximeter] Respiratory Rate Blood Pressure 135/87 Blood Pressure [Left Upper Arm] Pulse Oximetry 99 99 95 Oxygen Delivery Method 05/14/24 14:30 05/14/24 14:32 05/14/24 14:45 Temperature Pulse Rate 65 74 68 Pulse Rate [Right Pulse Oximeter] Respiratory Rate Blood Pressure 124/62 Blood Pressure [Left Upper Arm] Pulse Oximetry 96 95 95 Oxygen Delivery Method 05/14/24 15:00 05/14/24 15:01 05/14/24 15:15 Temperature Pulse Rate 76 73 79 Pulse Rate [Right Pulse Oximeter] Respiratory Rate Blood Pressure 142/82 H Blood Pressure [Left Upper Arm] Pulse Oximetry 97 98 97 Oxygen Delivery Method This 48-year-old female is alert, interactive, no apparent distress. Very pleasant, not anxious at all today. Pupils are equal round reactive, sclera clear, symmetrical facial function. Neck is supple, no jugular venous distension, no adenopathy, no thyromegaly masses or nodules. Lungs are clear, good air entry, no wheezing or crackles. CV regular rate and rhythm, no murmur, normal S1-S2, no S3-S4. No reproducible chest wall tenderness. Abdomen is soft, nontender, nondistended, no organomegaly, no rebound or guarding. No lower extremity edema. She is up ambulatory into the ED, did see her walking back from the bathroom. Documenting provider has reviewed patient's vital signs: yes Course Course ED Course: Reviewed with Jose that her EKG is showing some T-wave changes, was able to show her the comparison from May 07. There is inferior and lateral flipped T-waves that are new. She has already had extra aspirin today. Will get point of care troponin. Need to consider ischemic disease, myocarditis, thromboembolic disease, dissection given her Lizy Danlos syndrome. She is currently hemodynamically stable, will let us know if she has increasing pain. Her blood pressure was systolic 140 range, does not necessitate need for intervention but will continue to watch her blood pressure closely. Will do screening chest x-ray. May need to get advanced imaging on this patient. Reevaluation(s) Time of Reevaluation #1: 15:20 Reevaluation #1: Patient earlier had some escalation in her symptoms with back pain. She was given IV morphine with 4 mg IV Zofran. That did help her back symptoms but she continues to just have the underlying pressure in her left chest. The morphine has made her stomach hurt and she continues to have nausea, she remembers this being the same feeling after taking codeine. We reviewed that the stomach symptoms are very likely to morphine, will wear off, will give her another dose of Zofran and some IV fluids. We reviewed that her CT is not showing any dissection. There was a question of an area of central lobular emphysema on 1 portion of the long but is not clinically significant at this time. Will page Cardiology to talk to them about her EKGs in view of ongoing chest pressure and negative troponins but new T-wave abnormality. Consultations Consultation #1: Spoke with Dr. Shubham answering outpatient cardiology questions. Our staff was directed to him. Reviewed the case, he is recommending the patient go to the ER and be evaluated. Reviewed with him that I was in the ER and was calling to discuss with Cardiology. He recommends inpatient evaluation. We will have to call back through the transfer service to talk to hospitalist/gun perforator loader. Have asked staff here to arrange for this phone call. Patient is updated on Cardiology recommendations, she is aware that I am waiting to talk to them, do not know if there any beds within the [facility] system at this time. Time: 15:22 Vital Signs Vital signs: Initial Vital Signs Temperature 97.4 F L 05/14/24 10:06 Temperature Source Temporal Artery Scan 05/14/24 10:06 Pulse Rate 75 05/14/24 10:06 Pulse Rhythm Regular 05/14/24 10:06 Respiratory Rate 18 05/14/24 10:06 Blood Pressure 149/92 H 05/14/24 10:06 Blood Pressure Mean 111 H 05/14/24 10:06 Blood Pressure Position Supine 05/14/24 10:06 Pulse Oximetry 100 05/14/24 10:06 Oxygen Delivery Method Room Air 05/14/24 10:06 Vital Signs Temperature 97.4 F L 05/14/24 10:06 Pulse Rate 75 05/14/24 10:06 Respiratory Rate 18 05/14/24 10:06 Blood Pressure 149/92 H 05/14/24 10:06 Pulse Oximetry 100 05/14/24 10:06 Oxygen Delivery Method Room Air 05/14/24 10:06 Temperature 97.8 F 05/14/24 17:38 Pulse Rate 65 05/14/24 20:02 Respiratory Rate 20 05/14/24 17:38 Blood Pressure 137/87 05/14/24 20:02 Pulse Oximetry 97 05/14/24 20:02 Oxygen Delivery Method Room Air 05/14/24 10:06 Medications Administered Medications: Discontinued Medications Generic Name Dose Route Start Last Admin Trade Name Freq PRN Reason Stop Dose Admin Sodium Chloride 500 mls @ 500 mls/hr 05/14/24 15:18 05/14/24 16:53 0.9 % Sodium Chloride 500 Ml IV 05/14/24 16:17 Infused .Q1H ONE Infusion Ketorolac Tromethamine 30 mg 05/14/24 17:58 05/14/24 18:10 Ketorolac 30 Mg/Ml Inj IVP 05/14/24 17:59 30 mg ONCE ONE Administration Morphine Sulfate 4 mg 05/14/24 13:30 05/14/24 14:10 Morphine 4 Mg/Ml Inj IVP 05/14/24 13:31 4 mg ONCE ONE Administration Ondansetron HCl 4 mg 05/14/24 13:30 05/14/24 14:08 Ondansetron 2 Mg/Ml Inj IVP 05/14/24 13:31 4 mg ONCE ONE Administration Ondansetron HCl 4 mg 05/14/24 15:18 05/14/24 15:25 Ondansetron 2 Mg/Ml Inj IVP 05/14/24 15:19 4 mg ONCE ONE Administration MDM - Chest Pain Lab Data Attestation: I reviewed the patient's lab results. Labs: Lab Results 05/14/24 05/14/24 05/14/24 Range/Units 11:13 11:36 13:27 WBC 8.65 (4.50-11.00) K/uL RBC 4.90 (4.00-5.20) m/uL Hgb 14.8 (12.0-16.0) gm/dL Hct 44.7 (33.0-51.0) % MCV 91 (80-100) fL MCH 30 (26-34) pg MCHC 33 (32-36) gm/dL RDW Coeff of [place] 11.8 (11.5-15.5) % Plt Count 186 (140-440) K/uL Neut % (Auto) 66.2 (42.0-72.0) % Lymph % (Auto) 20.6 (20-44) % [place] % (Auto) 6.0 (0.0-11.0) % Eos % (Auto) 6.8 (0.0-7.0) % Baso % (Auto) 0.3 (0.0-3.0) % Neut # (Auto) 5.72 (1.7-7.0) K/uL Lymph # (Auto) 1.78 (0.90-2.90) K/uL [place] # (Auto) 0.50 (0.00-0.90) K/UL Eos # (Auto) 0.59 H (0.00-0.50) K/uL Baso # (Auto) 0.03 (0.00-0.30) K/uL Abs Immat Gran (auto) 0.01 (0.00-0.30) K/uL Imm/Tot Granulo (auto) 0.1 % ESR 14 (2-20) mm/hr D-Dimer Quant (PE/DVT) 0.42 (0.00-0.50) ug/ml Sodium 140 (135-149) mmol/L Potassium 4.1 (3.6-5.1) mmol/L Chloride 106 (96-114) mmol/L Carbon Dioxide 27 (20-32) mmol/L Anion Gap 7 (7-15) mEq/L BUN 14 (5-24) mg/dL Creatinine 0.7 (0.5-1.5) mg/dL Estimated Creat Clear 100.22 Estimated GFR 107 ml/min Glucose 87 (60-115) mg/dL Lactate 1.7 (0.5-1.9) mmol/L Calcium 9.9 (8.4-10.6) mg/dL Magnesium 2.1 (1.5-2.6) mg/dL Total Bilirubin 1.0 (0.1-1.5) mg/dL AST 24 (12-35) U/L ALT 16 (4-35) U/L Alkaline Phosphatase 71 (40-150) U/L Troponin I < 0.01 L (0.01-0.04) ng/mL C-Reactive Protein 0.7 (0.5-1.0) mg/dL NT-Pro-B Natriuret Pep 170 pg/mL Total Protein 8.1 (6.0-8.3) g/dL Albumin 4.8 (3.3-5.0) g/dL POC Troponin I 0.00 L 0.00 L (0.01-0.04) ng/ml Imaging Data Chest x-ray: Attestation: I have reviewed the pertinent imaging results. Radiologist's impression: Patient: CHRISTOPHER TY Facility:?[facility] Patient ID:?[id number] Site Patient ID:?[id number]. Site :?1975 Study:?XRay-Chest 1 VIEW PORTABLE-05/14/2024 11:25:15 AM Ordering Physician:?Florencio Rico Final Report: Indication: Chest pain, HX EDS. Technique: Chest 1 view. Comparison: Chest radiographs dated 09/29/2022. Findings/Impression: Cardiovascular and mediastinum: Heart size and vasculature are normal in caliber and appearance. Redemonstrated atrial septal closure device. Lungs and pleural space: Lungs are clear. No sign of infiltrate or mass. No sign of pleural effusion. No pneumothorax. Bones and soft tissues: No acute findings. Dictated by Art Piña MD @ 05/14/2024 11:41:42 AM (Electronic Signature) CT- Other: Attestation: I have reviewed the pertinent imaging results. Radiologist's impression: Patient: CHRISTOPHER TY Facility:?[facility] Patient ID:?[id number] Site Patient ID:?[id number]. Site :?1975 Study:?CT-Chest/Abd/Pelvis Angio W/ 95CC ISOVUE-370 AORTIC -05/14/2024 1:58:11 PM Ordering Physician:?Florencio Rico Final Report: INDICATION: Chest pain and normal troponins TECHNIQUE: CT chest, abdomen and pelvis acquired with initial noncontrast followed by 95 cc Isovue 370 intravenous contrast. COMPARISON: None. FINDINGS: CHEST: Cardiovascular structures: Noncontrast images show no evidence of intramural hematoma. Status post atrial septal defect repair. The great vessels are unremarkable. Thoracic aorta is normal in caliber. No pericardial effusion. Pulmonary artery unremarkable. Abdominal aorta is normal in caliber. Inferior mesenteric, superior mesenteric and celiac arteries are unremarkable. Renal arteries unremarkable with 2 left renal arteries noted. Bilateral common, internal and external iliac arteries unremarkable. Mediastinum and uvaldo: No enlarged mediastinal lymph nodes. Lungs and pleura: No pleural effusion or pneumothorax. Biapical pleural- parenchymal scarring. Mild centrilobular emphysema. Air trapping within the lateral segment of the right middle lobe scattered areas of discoid atelectasis. Chest wall and axilla: No mass or adenopathy. Bones: No suspicious bone lesions. Unremarkable for age. ABDOMEN AND PELVIS: Liver: Unremarkable. Gallbladder and bile ducts: Status post cholecystectomy. Pancreas: Unremarkable. Spleen: Unremarkable. Adrenal glands: Unremarkable. Kidneys: 8 millimeter cyst right kidney. GI tract: The stomach is unremarkable. No dilated loops of large or small intestine. Appendix unremarkable. Mild colonic diverticulosis. Vascular structures: Unremarkable. Miscellaneous: Unremarkable. No free air or significant free fluid. Pelvic Organs: Status post hysterectomy. Bones: No suspicious bone lesions. Unremarkable for age. IMPRESSION: 1. No evidence of aortic dissection or aneurysm. 2. Underlying centrilobular emphysema with some areas of discoid atelectasis as well as prominent air trapping within the lateral segment of the right middle lobe. Question small airways disease. 3. Colonic diverticulosis. Please note that all CT scans at this facility use dose modulation, iterative reconstruction, and/or weight-based dosing when appropriate to reduce radiation dose to as low as reasonably achievable. Dictated by Abe Reaves MD @ 05/14/2024 2:27:37 PM (Electronic Signature) ECG Data Attestation: I personally reviewed and interpreted this ECG as follows: (Normal sinus rhythm with sinus arrhythmia, 78 beats per minute. Inferior and lateral precordial lead flipped T-waves without definitive ST segment change.) ECG interpretation date: 05/14/24 ECG interpretation time: 11:00 Prior ECG tracings: available for review (This pattern of T-wave changes is new compared to her EKG from 05/07/2024.) Ischemic changes: t wave inversions Interpretation: Repeat EKG at 12:25 p.m. is showing sinus rhythm with a PVC, 82 beats per minute. Ongoing T-wave abnormality inferior and lateral precordial leads without significant ST segment change, similar to prior today. Discharge Plan Discharge Clinical Impression: Chest pain, Abnormal EKG Prescriptions: No Action cetirizine [Zyrtec] 10 mg tablet 10 mg PO DAILY albuterol sulfate 90 mcg/actuation HFA aerosol inhaler 2 puff inhalation Q6H PRN magnesium 250 mg tablet 250 mg PO HS fluticasone furoate-vilanterol [Breo Ellipta] 200-25 mcg/dose blister with device 1 inh INHALATION DAILY ketorolac 10 mg tablet 10 mg PO Q6H PRN (Reason: pain) 5 Days Qty: 20 0RF trazodone 100 mg tablet 100 mg PO HS oxcarbazepine 150 mg tablet 150 mg PO HS Patient Comments: HAS NOT STARTED YET 05/08 hydroxyzine HCl 25 mg tablet 25 mg PO TID PRN (Reason: anxiety) lorazepam 1 mg tablet 0.5 - 1 mg PO DAILY PRN (Reason: dizziness) levetiracetam [Keppra] 750 mg tablet 375 mg PO BID aspirin 81 mg Tablet,Delayed Release (Dr/Ec) 81 mg PO DAILY Qty: 30 0RF rosuvastatin 20 mg tablet 20 mg PO QPM oxcarbazepine [Trileptal] 150 mg tablet 150 mg PO DAILY Follow Up/Referrals: Provider,Not a Local [Primary Care Provider] -
--- NOTE | 2024-05-14 11:12 | CRLHL7_ITS ---
For Patients: As a result of the Century Cures Act, medical imaging exams and procedure reports are released immediately into your electronic medical record. You may view this report before your referring provider. If you have questions, please contact your health care provider. Indication: Chest pain, HX EDS. Technique: Chest 1 view. Comparison: Chest radiographs dated 09/29/2022. Findings/Impression: Cardiovascular and mediastinum: Heart size and vasculature are normal in caliber and appearance. Redemonstrated atrial septal closure device. Lungs and pleural space: Lungs are clear. No sign of infiltrate or mass. No sign of pleural effusion. No pneumothorax. Bones and soft tissues: No acute findings. Dictated by Art Piña MD @ 05/14/2024 11:41:42 AM (Electronically Signed)
[2024-05-14 11:51] LABS: Lactate* 1.7 mmol/L (0.5-1.9)
[2024-05-14 11:52] LABS: Basophils Absolute Auto 0.03 K/uL (0.00-0.30); Basophils Percent Auto 0.3 % (0.0-3.0); Eosinophils Absolute Auto 0.59 K/uL (0.00-0.50); Eosinophils Percent Auto 6.8 % (0.0-7.0); Hematocrit 44.7 % (33.0-51.0); Hemoglobin* 14.8 gm/dL (12.0-16.0); Immature Granulocytes Abs Auto 0.01 K/uL (0.00-0.30); Immature Granulocytes Pct Auto 0.1 %; Lymphocytes Absolute Auto 1.78 K/uL (0.90-2.90); Lymphocytes Percent Auto 20.6 % (20-44); Mean Corpuscular HGB Conc 33 gm/dL (32-36); Mean Corpuscular Hemoglobin 30 pg (26-34); Mean Corpuscular Volume 91 fL (80-100); Neutrophils Absolute Auto 5.72 K/uL (1.7-7.0); Neutrophils Percent Auto 66.2 % (42.0-72.0); Platelet Count* 186 K/uL (140-440); RDW Coefficient of Variation % 11.8 % (11.5-15.5); White Blood Count* 8.65 K/uL (4.50-11.00)
--- OUTSIDE RECORDS SUMMARY | 2024-05-14 11:55 | XMS_ITS | Encounter Summary ---
Author Organization [facility] Address [address] [place] [address] Care Team Providers Care Art Preparator Name Role Phone Darius Shaw M.D. Primary Care Provider Encounter Details Date Type Department Care Team (Late st Contact Info) Description 05/12/2013 Historical Ophthalmology [facility] Jonathan Bonilla M.D. [address] [place] [phone] Social History Tobacco Use Types Packs/Day Years [...] corneal thickness CDM Reports - EYEGEN Id: [id number] Status: Fnl documented in this encounter Plan of Treatment Not on file documented as of this encounter Visit Diagnoses Not on filedocumented in this encounter Additional Health Concerns Infection Onset Date Last Indicated Resolved Time COVID19 Pending 07/11/2020 07/11/2020 07/12/2020 5 :56 PM CDT COVID19 Pending 07/17/2020 07/17/2020 07/17/2020 9 :18 PM WOOL CLASSER COVID19 Pending 09/19/2020 09/19/2020 10/09/2020 4 :45 AM WOOL CLASSER COVID19 Pending 10/25/2020 10/26/2020 10/27/2020 9 :59 AM WOOL CLASSER COVID19 Pending 06/03/2021 06/03/2021 06/03/2021 9 :40 AM CDT COVID19 Pending 06/03/2021 06/03/2021 06/03/2021 1 0:36 PM CDT COVID19 Pending 08/09/2021 08/09/2021 08/11/2021 1 2:57 AM WOOL CLASSER COVID19 Pending 06/26/2022 06/26/2022 06/26/2022 5 :47 PM CDT Assessment Noted Time PHQ-9 Depression Total Score: 8 09/18/19 13 7:41 AM WOOL CLASSER documented as of this encounter Care Teams Art Preparator Relationship Specialty Start Date End Date Darius Shaw M.D. [address] [place] [phone] PCP - General Family Medicine 09/27/22 documented as of this encounter
--- OUTSIDE RECORDS SUMMARY | 2024-05-14 11:55 | XMS_ITS | Clinical Summary ---
Author Organization [facility] Address [address] [place] [address] Care Team Providers Care Manufacturing Group Leader Name Role Phone Darius Shaw M.D. Primary Care Provider +1- [phone] Source Comments Patient records contain information from all sites at [facility]. For routine questions regarding patient records, call [phone] during business hours, M-F 8:00 AM - 5:00 PM Central Time. Record requests for emergency care only can be directed to [phone] at any time.[facility] Allergies Active Allergy Reactions Criticality Noted [...] week 01/10/2023 How often do you attend mu-ism or cheondoism serv ices? Never 01/10/2023 Do you belong [...] Answer Date Recorded PHQ-2 Score 3 01/10/2023 [facility] - Occupational Stress Questionnaire Answer Date [...] 11/07/2011, 10/04/2011 Medical Devices Implanted Type Area Lodging House Keeper Device Identifier Shelf Expiration Date Model / Serial / Lot Mesh Or Patch Mesh or Patch Heart Description:Amplatzer Septal Occluder Asd Closure Device 34mm - Sanders [id number] Implanted:Qty: 1 on 06/20/2006 Septal Defect Occluder Device Other/Legacy - See Implant Description Description:Device Manufactu [facility] [place]. Device Status Text - [id number]. Procedures Procedure Name Priority Date/Time Associated Diagnosis Comments BI BREAST SCREENING BILATERAL WITH TOMOSYNTHESIS RAD - Routine (most inpatients and all outpatients) 07/30/2023 2:38 PM ACTUARIAL MATHEMATICIAN Screening Mammogram Breast Cancer COLOGUARD Routine 10/28/2022 5:54 PM ACTUARIAL MATHEMATICIAN Screening Cancer Colon VBG & LYTES CG8+, POCT, B Routine 09/30/2022 10:38 AM ACTUARIAL MATHEMATICIAN LIPID PANEL, S Routine 02/13/2018 6:56 AM CDT Lizy Danlos Syndrome Chronic Obstructive Pulmonary Disease (HCC) Defect Atrial Septal (HCC) from Last 3 Months or Most Recently Relevant to Health Maintenance Results * BI Breast Screening Bilateral with Tomosynthesis (07/30/2023 2:38 PM ACTUARIAL MATHEMATICIAN) Anatomical Region Laterality Modality Breast, Breast Imaging RST L OS, Breast Imaging ARZ LOS, Breast Imaging FLA LOS Bilateral Mammography 08/01/2023 12:2 8 PM ACTUARIAL MATHEMATICIAN Impressions 08/01/2023 12:33 PM ACTUARIAL MATHEMATICIAN Negative. RECOMMENDATION: ??Annual Screening Mammogram ASSESSMENT: ??BI-RADS: 1: Negative. Narrative 08/01/2023 12:33 PM ACTUARIAL MATHEMATICIAN EXAM: ??BI BREAST SCREENING BILATERAL WITH TOMOSYNTHESIS [...] * Cologuard-Sent Out Lab (10/28/2022 5:54 PM ACTUARIAL MATHEMATICIAN) [facility] Signature Result Negative Negative 11/03/2022 2:48 AM ACTUARIAL MATHEMATICIAN EX[facility] Comment: NEGATIVE TEST RESULT. A negative [...] (Yenny Adkins al, N Engl J Med 2014;370(14):6321-5862) The normal value (reference range) for this assay is negative. COLOGUARD RE-SCREENING RECOMMENDATION: Periodic colorectal cancer screening is an important part of preventive healthcare for asymptomatic individuals at average risk for colorectal cancer. ??Following a negative Cologuard result, the [place] Cancer Society and U.S. Multi-Society Task Force screening guidelines recommend a Cologuard re-screening interval of 3 years. References: [place] Cancer Society Guideline for Colorectal Cancer Screening: https://www.cancer.org/cancer/sydum-bqrxie-keheyr/detection- diagnosis-staging/acs-recommendations.html.; Ming DK, Barbra CR, Erna SimsK, Colorectal Cancer Screening: Recommendations for Physicians and Patients from the U.S. Multi-Society Task Force on Colorectal Cancer Screening , Am J Gastroenterology 2017; 112:3252-3481. TEST DESCRIPTION: Composite algorithmic analysis of stool [...] (Yenny Adkins al, N Engl J Med 2014;370(14):0714-6435.) Cologuard may produce a false negative or false positive result (no colorectal cancer or precancerous polyp present at colonoscopy follow up). A negative Cologuard test result does not guarantee the absence of CRC or advanced adenoma (pre-cancer). The current Cologuard screening interval is every 3 years. ([place] Cancer Society and U.S. Multi-Society Task Force). Cologuard performance data in a 10,000 patient pivotal study using colonoscopy as the reference method can be accessed at the following location: www.VendAsta/results. Additional description of the Cologuard test process, warnings and precautions can be found at www.cologab&jb properties and servicesrd.com. Stool (Stool) 10/28/2022 5:5 4 PM ACTUARIAL MATHEMATICIAN 10/30/2022 1:57 PM ACTUARIAL MATHEMATICIAN Darius Shaw M.D. LAB BODY FLUIDS AND STOOLS ORDERABLES [employer] [address] [place] [address] EXLI [employer] [address] [facility], [address] [place] [address] * (ABNORMAL) Lipid Panel (02/13/2018 6:56 AM CDT) Cholesterol, Total 200(H) mg/dL 02/13/2018 8:[address] [facility] Comment: ----REFERENCE VALUE---- Desirable: < 200 Borderline high: 200 - 239 High: > or = 240 Triglycerides 143 mg/dL 02/13/2018 8:[address] [facility] Comment: ----REFERENCE VALUE---- Normal: <150 Borderline high: 150-199 High: 200-499 Very high: > or =500 Cholesterol, HDL, S 49(L) >=50 mg/dL 02/13/2018 8:[address] [facility] Calculated LDL 122 mg/dL 02/13/2018 8:[address] [facility] Comment: ----REFERENCE VALUE---- Desirable: <100 Above Desirable: 100-129 Borderline high: 130-159 High: 160-189 Very high: > or =190 Cholesterol, Non-HDL, Calculated 151 mg/dL 02/13/2018 8:[address] [facility] Comment: ----REFERENCE VALUE---- Desirable: <130 Above Desirable: 130-159 Borderline high: 160-189 High: 190-219 Very high: > or =220 Blood 02/13/2018 6:56 AM CDT 02/13/2018 7:18 AM CDT Dominique Mcgowan M.D. LAB BLOOD ADD- ON [facility] [address] [place] [address], [facility] from Last 3 Months or Most Recently Relevant to Health Maintenance Advance Directives For more information, please contact: [phone] * Full Code (Latest Code Status on File) Date Activated Date Inactivated Comments 09/30/2022 4:41 PM 10/02/2022 6:08 PM Question Answer Comments Full Code: Discussed Care Teams Manufacturing Group Leader Relationship Specialty Start Date End Date Darius Shaw M.D. [address] [place] [phone] PCP - General Family Medicine 09/27/22
--- OUTSIDE RECORDS SUMMARY | 2024-05-14 11:55 | XMS_ITS | Referral Summary ---
Author Organization [facility] Address [address] [place] [address] Care Team Providers Care Surg Nurse Name Role Phone Darius Shaw M.D. Primary Care Provider [phone]- [phone] Source Comments Patient records contain information from all sites at [facility]. For routine questions regarding patient records, call [phone] during business hours, M-F 8:00 AM - 5:00 PM Central Time. Record requests for emergency care only can be directed to [phone] at any time.[facility] [...] How often do you attend religion or zoroastrianism serv ices? Never 01/10/2023 Do you belong [...] Answer Date Recorded PHQ-2 Score 3 01/10/2023 [facility] - Occupational [...] on file Medical Devices Implanted Type Area Auto Machinist Device Identifier Shelf Expiration Date Model / Serial / Lot Mesh Or Patch Mesh or Patch Heart Description:Amplatzer Septal Occluder Asd Closure Device 34mm - Sanders [id number] Implanted:Qty: 1 on 06/20/2006 Septal Defect Occluder Device Other/Legacy - See Implant Description Description:Device Manufactu rer - [employer]. Device Status Text - [id number]. Procedures Procedure Name Priority Date/Time Associated Diagnosis Comments BI BREAST SCREENING BILATERAL WITH TOMOSYNTHESIS RAD - Routine (most inpatients and all outpatients) 07/30/2023 2:38 PM DATABASE DEVELOPER Screening Mammogram Breast Cancer COLOGUARD Routine 10/28/2022 5:54 PM DATABASE DEVELOPER Screening Cancer Colon VBG & LYTES CG8+, POCT, B Routine 09/30/2022 10:38 AM DATABASE DEVELOPER LIPID PANEL, S Routine 02/13/2018 6:56 AM CDT Lizy Danlos Syndrome Chronic Obstructive Pulmonary Disease (HCC) Defect Atrial Septal (HCC) from Last 3 Months or Most Recently Relevant to Health Maintenance Results * BI Breast Screening Bilateral with Tomosynthesis (07/30/2023 2:38 PM DATABASE DEVELOPER) Anatomical Region Laterality Modality Breast, Breast Imaging RST L OS, Breast Imaging ARZ LOS, Breast Imaging FLA LOS Bilateral Mammography 08/01/2023 12:2 8 PM DATABASE DEVELOPER Impressions 08/01/2023 12:33 PM DATABASE DEVELOPER Negative. RECOMMENDATION: ??Annual Screening Mammogram ASSESSMENT: ??BI-RADS: 1: Negative. Narrative 08/01/2023 12:33 PM DATABASE DEVELOPER EXAM: ??BI BREAST SCREENING BILATERAL WITH TOMOSYNTHESIS [...] BI-RADS: 1: Negative. Darius Shaw M.D. [facility] [place] [place] BI PROCEDURES * Cologuard-Sent Out Lab (10/28/2022 5:54 PM DATABASE DEVELOPER) Result Negative Negative 11/03/2022 2:48 AM DATABASE DEVELOPER [facility] Comment: NEGATIVE TEST RESULT. A negative [...] Gates et al, N Engl J Med 2014;370(14):0037-7955) The normal value (reference range) for this assay is negative. COLOGUARD RE-SCREENING RECOMMENDATION: Periodic colorectal cancer screening is an important part of preventive healthcare for asymptomatic individuals at average risk for colorectal cancer. ??Following a negative Cologuard result, the [place] Cancer Society and U.S. Multi-Society Task Force screening guidelines recommend a Cologuard re-screening interval of 3 years. References: [place] Cancer Society Guideline for Colorectal Cancer Screening: https://www.cancer.org/cancer/uwpwe-lkepxr-vcbhnj/detection- diagnosis-staging/acs-recommendations.html.; Ming DK, Barbra CR, Erna SimsK, Colorectal Cancer Screening: Recommendations for Physicians and Patients from the U.S. Multi-Society Task Force on Colorectal Cancer Screening , Am J Gastroenterology 2017; 112:7198-0801. TEST DESCRIPTION: Composite algorithmic analysis of stool [...] Gates et al, N Engl J Med 2014;370(14):8709-4628.) Cologuard may produce a false negative or false positive result (no colorectal cancer or precancerous polyp present at colonoscopy follow up). A negative Cologuard test result does not guarantee the absence of CRC or advanced adenoma (pre-cancer). The current Cologuard screening interval is every 3 years. ([place] Cancer Society and U.S. Multi-Society Task Force). Cologuard performance data in a 10,000 patient pivotal study using colonoscopy as the reference method can be accessed at the following location: www.BioAtlantis/results. Additional description of the Cologuard test process, warnings and precautions can be found at www.HelixisogDevZuzrd.com. Stool (Stool) 10/28/2022 5:5 4 PM DATABASE DEVELOPER 10/30/2022 1:57 PM DATABASE DEVELOPER Darius Shaw M.D. LAB BODY FLUIDS AND STOOLS ORDERABLES [employer] [address] [place] [id number] EXLI [employer] [address] [place] [address], [address] [place] [address] * (ABNORMAL) Lipid Panel (02/13/2018 6:56 AM CDT) Cholesterol, Total 200(H) mg/dL 02/13/2018 8:08 AM CDT [facility] Comment: ----REFERENCE VALUE---- Desirable: < 200 Borderline high: 200 - 239 High: > or = 240 Triglycerides 143 mg/dL 02/13/2018 8:08 AM CDT [facility] Comment: ----REFERENCE VALUE---- Normal: <150 Borderline high: 150-199 High: 200-499 Very high: > or =500 Cholesterol, HDL, S 49(L) >=50 mg/dL 02/13/2018 8:08 AM CDT [facility] Calculated LDL 122 mg/dL 02/13/2018 8:08 AM CDT [facility] Comment: ----REFERENCE VALUE---- Desirable: <100 Above Desirable: 100-129 Borderline high: 130-159 High: 160-189 Very high: > or =190 Cholesterol, Non-HDL, Calculated 151 mg/dL 02/13/2018 8:08 AM CDT [facility] Comment: ----REFERENCE VALUE---- Desirable: <130 Above Desirable: 130-159 Borderline high: 160-189 High: 190-219 Very high: > or =220 Blood 02/13/2018 6:56 AM CDT 02/13/2018 7:18 AM CDT Dominique Mcgowan M.D. LAB BLOOD ADD- ON [facility] [address] [place], [place] [address] from Last 3 Months or Most Recently Relevant to Health Maintenance Advance Directives For more information, please contact: [phone] * Full Code (Latest Code Status on File) Date Activated Date Inactivated Comments 09/30/2022 4:41 PM 10/02/2022 6:08 PM Question Answer Comments Full Code: Discussed Care Teams Surg Nurse Relationship Specialty Start Date End Date Darius Shaw M.D. [address] [place] [phone] PCP - General Family Medicine 09/27/22
--- OUTSIDE RECORDS SUMMARY | 2024-05-14 11:55 | XMS_ITS ---
Author Organization [facility] Address [address] [place] [address] Care Team Providers Care Electrical Appliance Mechanic Name Role Phone Unavailable Unavailable Unavailable Surgery Details Not on file Complications Check Surgery Details section. Procedure Estimated Blood Loss Check Surgery Details section. Procedure Findings Check Surgery Details section. Procedure Specimens Taken Check Surgery Details section.
--- OUTSIDE RECORDS SUMMARY | 2024-05-14 11:55 | XMS_ITS | Clinical Summary ---
Author Organization [facility] Address [place], [place] [address] Care Team Providers Care Fish Icer Name Role Phone Keira Irvin MD Primary [...] Encounters Date Type Department Care Team Description 05/08/2024 Office Visit [facility] [address] [place] [phone] Bette Mantilla MD Telehealth ([facility] ) 05/07/2024 Office Visit [facility] [address] [place] [phone] Roshni Molina MD Telehealth ([facility] - phone consult only) from Last 3 Months Immunizations Name Administration Dates Next Due COVID-19 vaccine ([employer] NTech 30mcg/0.3mL) CORKY ROSARIO 07/07/2021 Hepatitis B, [...] REFLEX MEASURED LDL Routine 08/03/2011 10:31 AM PHYSICIAN NEONATOLOGY Screening for other and unspecified cardiovascular conditions from Last 3 Months or Most Recently Relevant to Health Maintenance Results * LIPID PANEL W REFLEX MEASURED LDL (08/03/2011 10:31 AM PHYSICIAN NEONATOLOGY) CHOLESTEROL,TOTAL 171 110 - 199 mg/dL [facility] TRIGLYCERIDES 67 <150 mg/dL [facility] HDL CHOLESTEROL 43 >40 mg/dL [facility] CHOL/HDL RATIO 3.98 <4.51 [facility] LDL CHOLESTEROL 115 <131 mg/dL [facility] PATIENT STATUS Fasting [facility] Blood specimen (specimen) BLOOD SPECIMEN / Unknown 08/03/2011 10:31 AM PHYSICIAN NEONATOLOGY 08/03/2011 10:23 AM PHYSICIAN NEONATOLOGY Jasvir Pickens MD CHEMISTRY [facility] [address] [place] [address] from Last 3 Months or Most Recently Relevant to Health Maintenance Advance Directives * Full Code (Latest Code Status on File) Date Activated Date Inactivated Comments 01/09/2024 7:44 AM 01/09/2024 6:26 PM Question Answer Comments Code Status Discussion: Reviewed Preferences Care Teams Fish Icer Relationship Specialty Start Date End Date Keira Irvin MD [address] [place] [address] PCP - General Family Practice 01/08/24
--- OUTSIDE RECORDS SUMMARY | 2024-05-14 11:56 | XMS_ITS ---
Care Plan Created on: May 14, 2024 [place] : 1975 Sex: Female Author Organization [facility] Address [address] [place] [address] Care Team Providers Care Backwinder Name Role Phone Winston Villatoro OD Unavailable Denise Woodson Ra, APRN POT HOLDER BINDER Unavailable +1- [phone] Denise Woodson Ra, APRN POT HOLDER BINDER Primary Care Provid er Usha Simon APRN POT HOLDER BINDER Unavailable +1- [phone] Dangelo Salinas MD Unavailable Anastasia Stearns RN Unavailable Germaine Lopez CHW Unavailable Lisa Zambrano MD Unavailable +1- [phone] Raul Hoyos MD Unavailable Active Problems Problem Noted Date [...] Health weekly - PT, OT and MANAGER ORDER - PCP appointment 05/26/24 & 06/08/24 - Stroke Neurology Dr. Hoyos 04/14/24 #[phone] - Epilepsy Neurology Dr. Barcenas 05/05/24 follow up recommended in 2 months: 07/05/24 TBD. #[phone] - Vascular Dr. Zambrano 05/01/24 - follow up recommended in 6 months: 11/11/24 TBD #[phone]. - MTM if covered by insurance TBD 2. I will take my medications as prescribed. 3. I will discuss, review, schedule and complete recommended overdue health maintenance with my Primary Care Provider. 4. I will contact my care team with questions, concerns, support needs. I will use the clinic as a resource and I understand I can contact my clinic with 24/7 after hours services available. Bonder[employer] will remain available as needed. Interventions Intervention [...]
--- OUTSIDE RECORDS SUMMARY | 2024-05-14 11:56 | XMS_ITS | Referral Summary ---
Author Organization [facility] Address [address] [place] [address] Care Team Providers Care Eviscerator Name Role Phone ShaunaWinston OD Unavailable Denise Woodson Ra, APRN FIRE SAFETY INSPECTOR Unavailable [phone] Denise Woodson Ra, APRN FIRE SAFETY INSPECTOR Primary Care Provid er Usha Simon APRN FIRE SAFETY INSPECTOR Unavailable [phone] Dangelo Salinas MD Unavailable Anastasia Stearns RN Unavailable [phone] Germaine Lopez Unavailable Lisa Zambrano MD Unavailable [phone] Raul Hoyos MD Unavailable Encounters Date Type Department Care Team Description 05/13/2024 MyC Medical Advice Initial Department [facility] 05/13/2024 MyC Medical Advice Initial Department [facility] 05/13/2024 Telephone M [facility] [place] [facility] [address], [address] [place] [address] Rohit Barcenas MD 05/13/2024 MyC Medical Advice [facility] [address] [place] [phone] Anastasia Stearns, RN 05/12/2024 Travel 05/12/2024 5:25 PM CDT - 05/12/2024 6:59 PM CDT Emergency [facility] Emergency Dept [address] [place] [address] [phone] Chinedu Moon MD Discharge Disposition: Left Without Being Seen 05/12/2024 Telephone [facility] [address] [place] [phone] Denise Woodson Ra, APRN CNP 05/12/2024 MyC Medical Advice [facility] [address] [place] [phone] Denise Woodson Ra, APRN CNP Forms ([employer] - Disabi... 05/12/2024 Telephone [facility] [place] [address] [facility] [address] [place] [address] Raul Hoyos MD Symptoms (Stroke symptoms per pt ) 05/12/2024 Telephone [facility] [address] [place] [phone] Denise Woodson Ra, APRN FIRE SAFETY INSPECTOR 05/11/2024 MyC Medical Advice [facility] [address] [place] [phone] Denise Woodson Ra, APRN FIRE SAFETY INSPECTOR 05/10/2024 10:48 AM CDT - 05/11/2024 12:03 AM CDT Emergency [facility] Emergency Department [address] [place] [phone] Todd Osborn MD Hackner, Michelle C, MD Intractable headache, unspecified chronicity pattern, unspecified headache type; Dizziness Discharge Disposition: Home or Self Care 05/10/2024 Travel 05/08/2024 MyC Medical Advice [facility] [place] [address] [facility] [address] [place] [phone] Robin Zepeda MD 05/06/2024 MyC Medical Advice [facility] [place] [facility] [address] [place] [address] Rohit Barcenas MD 05/05/2024 Travel 05/05/2024 2:30 PM CDT Office Visit [facility] [address], [address] [place] [address] Rohit Barcenas MD 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) (Primary Dx); Fibromuscular dysplasia (H24); Cerebrovascular accident (CVA), unspecified mechanism (H) 05/04/2024 Travel 05/01/2024 Travel 05/01/2024 10:30 AM CDT Office Visit [facility] [place] [address] [place] [phone] Lisa Zambrano MD Fibromuscular dysplasia (H24) ?? 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 04/30/2024 Travel 04/30/2024 Refill [facility] [address] [place] [address] Denise Woodson Ra, APRN CNP Medication Refill 04/28/2024 Travel 04/27/2024 Telephone [facility] [address] [place] [address] Denise Woodson Ra, APRN CNP Medication Refill 04/15/2024 Travel 04/15/2024 8:45 AM CDT Therapy Visit [facility] [address] [phone] Chintan, Denise Ra, CROSSING WATCHMAN FIRE SAFETY INSPECTOR Beaulieu, Isabel A, OTR Cerebrovascular accident (CVA), unspecified mechanism (H) (Primary Dx) 04/15/2024 9:30 AM CDT Therapy Visit [facility] [address] [phone] Danya You, PA Danya Restrepo, APPRENTICE ELECTRICIAN Cognitive communication deficit (Primary Dx); Cerebrovascular accident (CVA), unspecified mechanism (H) 04/14/2024 Travel 04/14/2024 Telephone [facility] [place] [address] [place] [phone] Nurse, Sh [facility] Referral (Pt referred to [facility] by Dr. Raul Hoyos for fibromuscular dysplasia.) 04/14/2024 9:30 AM CDT Virtual Visit [facility] [address] [address] Raul Hoyos MD History of CVA (cerebrovascular accident) (Primary Dx); Fibromuscular dysplasia (H24) 04/13/2024 12:00 PM CDT Virtual Visit [facility] [address] [place] [address] Denise Woodson Ra, CROSSING WATCHMAN FIRE SAFETY INSPECTOR Cerebrovascular accident (CVA), unspecified mechanism (H) (Primary Dx) 04/08/2024 Telephone [facility] [address] [place] [address] Denise Woodson Ra CROSSING WATCHMAN FIRE SAFETY INSPECTOR 04/06/2024 MyC Medical Advice Initial Department [facility] 04/02/2024 Travel 04/02/2024 Telephone [facility] [address] [address] Raul Hoyos MD Clinic Care Coordination - Follow-up 04/02/2024 MyC Medical Advice [facility] [address] [address] Liliane Cobos 04/02/2024 2:15 PM CDT Therapy Visit [address] [phone] Danya You PA Peterson, Megan A, OTR Cerebrovascular accident (CVA), unspecified mechanism (H) (Primary Dx) 04/02/2024 3:15 PM CDT Therapy Visit [address] [phone] Danya You, Charis Thomas, APPRENTICE ELECTRICIAN Cognitive communication deficit (Primary Dx); Cerebrovascular accident (CVA), unspecified mechanism (H) 04/02/2024 4:15 PM CDT Therapy Visit [address] [phone] Danya You, Delicia Higgins, PT Cerebrovascular accident (CVA), unspecified mechanism (H) (Primary Dx) 04/01/2024 Travel 03/31/[address] [address] Denise Woodson Ra, APRN FIRE SAFETY INSPECTOR Medication Refill 03/26/2024 Travel 03/26/2024 1:30 PM CDT Therapy Visit [address] [phone] Danya You PA Peterson, Megan A, OTR Cerebrovascular accident (CVA), unspecified mechanism (H) (Primary Dx) 03/26/2024 2:30 PM CDT Therapy Visit [address] [phone] Danya You, Charis Thomas, APPRENTICE ELECTRICIAN Cognitive communication deficit (Primary Dx); Cerebrovascular accident (CVA), unspecified mechanism (H) 03/26/2024 3:30 PM CDT Therapy Visit [address] [address] Danya You, Delicia Higgins, PT Cerebrovascular accident (CVA), unspecified mechanism (H) (Primary Dx) 03/18/2024 Travel 03/18/2024 1:21 PM CDT - 03/18/2024 11:59 PM CDT Hospital Encounter [facility] [address] [place] [address] Denise Woodson Ra, BARRERA FIRE SAFETY INSPECTOR Fibromuscular dysplasia (H24) Discharge Disposition: Home or Self Care 03/17/2024 10:00 AM CDT Office Visit [address] [phone] Denise Woodson Ra, BARRERA FIRE SAFETY INSPECTOR History of seizure (Primary Dx); Cerebrovascular accident (CVA), unspecified mechanism (H) 03/17/2024 1:30 PM CDT Therapy Visit [address] [address] Danya You PA Peterson, Megan A, OTR Cerebrovascular accident (CVA), unspecified mechanism (H) (Primary Dx) 03/17/2024 2:30 PM CDT Therapy Visit [address] [phone] Danya You PA Raasch, Sharon, APPRENTICE ELECTRICIAN Cognitive communication deficit (Primary Dx); Cerebrovascular accident (CVA), unspecified mechanism (H) 03/17/2024 4:00 PM CDT Therapy Visit [address] [phone] Danya You, Vanessa Prescott, PT Cerebrovascular accident (CVA), unspecified mechanism (H) (Primary Dx) 03/16/2024 Travel 03/16/2024 Telephone [facility] [address] [phone] Raul Hoyos MD Appointment (Follow up ) 03/16/2024 MyC Medical Advice [facility] [address] [phone] Ora Bazan 03/11/2024 Travel 03/11/2024 2:15 PM CDT Therapy Visit [address] [phone] Danya You, Isabel Payan, OTR Cerebrovascular accident (CVA), unspecified mechanism (H) (Primary Dx) 03/11/2024 3:00 PM CDT Therapy Visit [address] [phone] Danya You, Charis Thomas, APPRENTICE ELECTRICIAN Cognitive communication deficit (Primary Dx); Cerebrovascular accident (CVA), unspecified mechanism (H) 03/11/2024 4:15 PM CDT Therapy Visit [address] [phone] Danya You, Delicia Higgins, PT Cerebrovascular accident (CVA), unspecified mechanism (H) (Primary Dx) 03/09/2024 Telephone [facility] [address] [phone] Raul Hoyos MD Call Back (Follow up appointment ) 03/05/2024 Travel 03/05/2024 1:30 PM CDT Therapy Visit [address] [phone] Danya You, Isabel Payan, OTR Cerebrovascular accident (CVA), unspecified mechanism (H) (Primary Dx) 03/05/2024 3:15 PM CDT Therapy Visit [address] [address] Danya You PA Raasch, Sharon, APPRENTICE ELECTRICIAN Cerebrovascular accident (CVA), unspecified mechanism (H) (Primary Dx); Cognitive communication deficit 03/05/2024 4:15 PM CDT Therapy Visit [address] [address] Danya You PA Hoyt, Kelly, PT Cerebrovascular accident (CVA), unspecified mechanism (H) (Primary Dx) 03/04/2024 Travel 03/03/[address] [address] Denise Woodson Ra, APRN FIRE SAFETY INSPECTOR Medication Refill 03/03/2024 Travel 03/03/2024 11:14 AM CDT - 03/03/2024 2:19 PM CDT Emergency [facility] Emergency Dept [address] [place] [phone] Brayan Reich MD Right flank pain; Right sided abdominal pain Discharge Disposition: Home or Self Care 03/02/2024 Orders Only [facility] [address] [facility] [address] [place] [address] Liilane Mcnair PA-C Hematuria, unspecified type (Primary Dx) 02/28/2024 10:46 AM CDT - 02/28/2024 11:59 PM CDT Hospital Encounter [facility] [address] [place] [address] Janna Jo APRN FIRE SAFETY INSPECTOR Flank pain; Abdominal pain, epigastric Discharge Disposition: Home or Self Care 02/28/2024 10:00 AM CDT Office Visit [facility] [address] [facility] [address] [place] [phone] Janna Jo APRN CNP Flank pain; Abdominal pain, epigastric; TSH elevation 02/27/2024 Travel 02/27/2024 3:00 PM CDT [facility] [address] [facility] [address] [place] [phone] Liliane Mcnair, HAYDEN Flank pain (Primary Dx); Abdominal pain, epigastric; Cerebrovascular accident (CVA), unspecified mechanism (H) 02/27/2024 MyC Medical Advice [facility] [address] [place] [address] Denise Woodson Ra, APRN CNP 02/24/2024 Travel 02/19/2024 Travel 02/19/2024 3:00 PM CDT Therapy Visit [address] [phone] Danya You PA Peterson, Megan A, OTR Cerebrovascular accident (CVA), unspecified mechanism (H) (Primary Dx) 02/17/2024 Travel 02/17/2024 2:45 PM CDT Therapy Visit [address] [address] Danya You PA Choo, Sara J, APPRENTICE ELECTRICIAN Cerebrovascular accident (CVA), unspecified mechanism (H) (Primary Dx); Cognitive communication deficit 02/15/2024 Travel 02/14/2024 Telephone [facility] [address] [place] [address] Denise Woodson Ra, APRN CNP 02/14/2024 MyC Medical Advice [facility] [address] [place] [address] Denise Woodson Ra, APRN CNP Medication Request; Forms 02/14/2024 Travel 02/14/2024 12:45 PM CDT Therapy Visit [address] [address] Danya You, Isabel Payan, OTR Cerebrovascular accident (CVA), unspecified mechanism (H) (Primary Dx) 02/14/2024 2:00 PM CDT Therapy Visit [address] [phone] Danya You PA Raasch, Sharon, APPRENTICE ELECTRICIAN Cerebrovascular accident (CVA), unspecified mechanism (H) (Primary Dx) 02/14/2024 2:45 PM CDT Therapy Visit [address] [address] Danya You PA Mussehl, Samantha J, PT Cerebrovascular accident (CVA), unspecified mechanism (H) (Primary Dx) 02/13/2024 Travel 02/13/2024 12:11 PM CDT - 02/13/2024 3:28 PM CDT Emergency [facility] Emergency Dept [address] [place] [address] Dangelo Sylvester DO Dizziness Discharge Disposition: Home or Self Care 02/12/2024 Telephone [facility] [address] [phone] Robin Zepeda MD 02/12/2024 3:40 PM CDT Virtual Visit [facility] [address] [phone] Robin Zepeda MD Dural arteriovenous fistula (Primary Dx) from Last 3 Months Allergies Active Allergy [...] How often do you attend buddhism or muslim serv ices? Never 02/28/2024 Do [...] Answer Date Recorded PHQ-2 Score 2 05/05/2024 [facility] - Occupational Stress Questionnaire Answer [...] Sign Reading Time Taken Comments Blood Pressure 141/94 05/12/2024 5:31 PM CDT Pulse 102 05/12/2024 5:31 PM CDT Temperature 36.7 ??C (98.1 ??F) 05/12/2024 5:31 PM CD T Respiratory Rate 18 05/12/2024 5:31 PM CDT Oxygen Saturation 99% 05/12/2024 5:31 PM CDT Inhaled Oxygen Concentration - - Weight 97.9 kg (215 lb 12.8 oz) 05/12/2024 5:31 PM CDT Height 172.7 cm (5' 8) 05/12/2024 5:31 PM CDT Body Mass Index 32.81 05/12/2024 5:31 PM CDT Plan of Treatment Upcoming Encounters Date Type Department Care Team (Late st Contact Info) Description 05/26/2024 8:30 AM CDT Office Visit [facility] [address] [place] [address] Denise Woodson Ra, CROSSING WATCHMAN [facility] [address] [place], [place] [phone] 06/08/2024 8:30 AM CDT [facility] [address] [phone] Denise Woodson Ra, CROSSING WATCHMAN FIRE SAFETY INSPECTOR [address] [address] [place] [phone] Goals Goal Patient Goal Type Associated Problems [...] Mental Health weekly - PT, OT and APPRENTICE ELECTRICIAN - PCP appointment 05/26/24 & 06/08/24 - Stroke Neurology Dr. Hoyos 04/14/24 #[phone] - Epilepsy Neurology Dr. Barcenas 05/05/24 follow up recommended in 2 months: 07/05/24 TBD. #[phone] - Vascular Dr. Zambrano 05/01/24 - follow up recommended in 6 months: 11/11/24 TBD #[phone]. - MTM if covered by insurance TBD [...] clinic with 24/7 after hours services available. Paper Cone Grader will remain available as needed. Procedures Procedure Name Priority Date/Time Associated Diagnosis Comments MR BRAIN W/O & W CONTRAST STAT 05/10/2024 8:21 PM CDT KEPPRA (LEVETIRACETAM) LEVEL STAT 05/10/2024 6:49 PM CDT CTA HEAD NECK W CONTRAST STAT 05/10/2024 3:[address] HEAD W/O CONTRAST STAT 05/10/2024 3:39 PM CDT CBC WITH PLATELETS & DIFFERENTIAL STAT 05/10/2024 2:34 PM CDT CBC WITH PLATELETS AND DIFFERENTIAL STAT 05/10/2024 2:34 PM CDT TROPONIN T, HIGH SENSITIVITY STAT 05/10/2024 2:34 PM CDT PARTIAL THROMBOPLASTIN TIME STAT 05/10/2024 2:34 PM CDT INR STAT 05/10/2024 2:34 PM CDT BASIC METABOLIC PANEL STAT 05/10/2024 2:34 PM CDT GLUCOSE BY METER STAT 05/10/2024 2:33 PM CDT EKG 12-LEAD, TRACING ONLY STAT 05/10/2024 11:25 AM CDT CTA CHEST ABDOMEN PELVIS W CONTRAST Routine [...] TSH WITH FREE T4 REFLEX Routine 02/28/20 24 10:27 AM CDT Flank pain COMPREHENSIVE METABOLIC [...] DIRECT LDL PANEL Routine 07/27/2021 8:57 AM DIVIDEND CLERK CARDIOVASCULAR SCREENING; LDL GOAL LESS THAN 160 ASTHMA ACTION PLAN Routine 01/04/2021 9: 09 AM CDT from Last 3 Months or Most Recently Relevant to Health Maintenance Results * MR Brain w/o & w Contrast (05/10/2024 8:21 PM CDT) Anatomical Region Laterality Modality Head, SUBRAD MR NEURO, UMP MR NEURO, RAD MR Magnetic Resonance 05/10/2024 8:21 PM CDT Impressions 05/10/2024 11:11 PM CDT IMPRESSION: 1. No discrete mass lesion, hemorrhage or focal area suggestive of acute infarct. 2. No significant abnormal signal or abnormal enhancement visualized. Narrative 05/10/2024 11:11 PM CDT EXAM: MR BRAIN W/O and W CONTRAST LOCATION: [facility] DATE: 05/10/2024 INDICATION: dizziness; Headache; Acute YANG (< 3 months), no complicating features COMPARISON: 05/10/2024 and 02/13/2024. CONTRAST: Gadavist 9 mL. TECHNIQUE: MRI brain without and with contrast. FINDINGS: On the diffusion-weighted images there is no evidence of acute ischemia or restricted diffusion. There is no discrete mass lesion or midline shift. There is no acute extra-axial fluid collection or acute intraparenchymal hemorrhage. There are appropriate flow voids within the cavernous portions of the internal carotid arteries and the basilar artery. On the FLAIR and T2-weighted images there are a few tiny foci of high signal within the periventricular and subcortical white matter stable in the interval and most likely are incidental in nature. ??The ventricular system, basal cisterns and the cortical sulci are within normal limits for the patient's age. Following the administration of contrast no abnormal enhancement is visualized. There is no evidence of cerebellar tonsillar ectopia. The corpus callosum and the sella region have appropriate configuration and signal intensity for the patient's age. The orbit regions are unremarkable. There is no significant paranasal sinus disease. The mastoid air cells and the middle ear regions are clear. Procedure Note Kaur Denney MD - 05/10/2024 EXAM: MR BRAIN W/O and W CONTRAST LOCATION: [facility] DATE: 05/10/2024 INDICATION: dizziness; Headache; Acute YANG (< 3 months), no complicatingfeatures COMPARISON: 05/10/2024 and 02/13/2024. CONTRAST: Gadavist 9 mL. TECHNIQUE: MRI brain without and with contrast. FINDINGS: On the diffusion-weighted images there is no evidence of acuteischemia or restricted diffusion. There is no discrete mass lesion ormidline shift. There is no acute extra-axial fluid collection or acuteintraparenchymal hemorrhage. There are appropriate flow voids within the cavernous portions of the internalcarotid arteries and the basilar artery. On the FLAIR and T2-weightedimages there are a few tiny foci of high signal within the periventricularand subcortical white matter stable in the interval and most likely are incidental in nature. The ventricularsystem, basal cisterns and the cortical sulci are within normal limits forthe patient's age. Following the administration of contrast no abnormalenhancement is visualized. There is no evidence of cerebellar tonsillar ectopia. The corpus callosumand the sella region have appropriate configuration and signal intensityfor the patient's age. The orbit regions are unremarkable. There is nosignificant paranasal sinus disease. The mastoid air cells and the middle ear regions are clear. IMPRESSION: 1. No discrete mass lesion, hemorrhage or focal area suggestive of acuteinfarct. 2. No significant abnormal signal or abnormal enhancement visualized. Felicita Rae MD [facility] MRI ORDERABLES * (ABNORMAL) Keppra (Levetiracetam) Level (05/10/2024 6:49 PM CDT) Keppra (Levetiracetam ) Level 7.6(L) 10.0 - 40.0 ??g/mL 05/10/2024 7:32 PM CDT [facility] Blood BLOOD SPECIMEN / Unknown Venipuncture / Unknown 05/10/2024 6:49 PM CDT 05/10/2024 6:52 PM CDT Felicita Rae MD LAB - BLOOD ORDERA BLES [facility] [place] [facility] [address] [facility], [address] [place] [address], [facility] * CTA Head Neck with Contrast (05/10/2024 3:43 PM CDT) Only the most recent of2 resultswithin the time period is included. Anatomical Region Laterality Modality Head, SUBRAD CT NEURO, SUBRA D CT NEURO, UMP CT NEURO, RAD CT Computed Tomography Impressions 05/10/2024 4:26 PM CDT IMPRESSION: ?? 1. Head CTA demonstrates no aneurysm or stenosis of the major intracranial arteries. 2. Neck CTA demonstrates no stenosis of the major cervical arteries. I have personally reviewed the examination and initial interpretation and I agree with the findings. MAE NIETO MD Narrative 05/10/2024 4:26 PM CDT EXAM: CTA HEAD NECK W CONTRAST ??05/10/2024 3:43 PM HISTORY: ??Acute neuro deficit, stroke/TIA suspected; Headache; Neurologic deficit, non-traumatic; None of the following: Altered mental status, language deficit, sensory loss, visual symptoms, or weakness ?? COMPARISON: ??MRI 02/13/2024. CTA 02/13/2024. TECHNIQUE: HEAD and NECK CTA: During rapid bolus intravenous injection of nonionic contrast material, axial images were obtained using thin collimation multidetector helical technique from the base of the upper aortic arch through the cachil dehe of Ambrosio. This CT angiogram data was reconstructed at thin intervals with mild overlap. Images were sent to the 3D workstation, and 3D reconstructions were obtained. The axial source images, multiplanar reformations, 3D reconstructions in both maximum intensity projection display and volume rendered models were reviewed, with reconstructions performed by the technologist and the radiologist. CONTRAST: 67ml Isovue 370- FINDINGS: Head CTA demonstrates no intracranial arterial aneurysm or significant stenosis. Neck CTA demonstrates no internal carotid artery stenosis. No vertebral artery stenosis. Patent and conventional aortic arch branching pattern. No acute finding in the visualized neck soft tissues, or in the superior mediastinum/thorax. Biapical scarring. Partially visualized. Bronchovascular cystic changes of the lung parenchyma, which appear unchanged dating back to multiple prior examinations. Bone island of the right humeral head. Nonenlarged, but prominent right level 2 lymph nodes, measuring up to 1.2 cm. No significant spinal canal stenosis. Procedure Note Mae Nieto MD - 05/10/2024 EXAM: CTA HEAD NECK W CONTRAST 05/10/2024 3:43 PM HISTORY: Acute neuro deficit, stroke/TIA suspected; Headache; Neurologic deficit, non-traumatic; None of the following: Altered mental status, language deficit, sensory loss, visual symptoms, or weakness COMPARISON: MRI 02/13/2024. CTA 02/13/2024. TECHNIQUE: HEAD and NECK CTA: During rapid bolus intravenous injection of nonionic contrast material, axial images were obtained using thin collimation multidetector helical technique from the base of the upper aortic arch through the cachil dehe of Ambrosio. This CT angiogram data was reconstructed at thin intervals with mild overlap. Images were sent to the 3D workstation, and 3D reconstructions were obtained. The axial source images, multiplanar reformations, 3D reconstructions in both maximum intensity projection display and volume rendered models were reviewed, with reconstructions performed by the technologist and the radiologist. CONTRAST: 67ml Isovue 370- FINDINGS: Head CTA demonstrates no intracranial arterial aneurysm or significant stenosis. Neck CTA demonstrates no internal carotid artery stenosis. No vertebral artery stenosis. Patent and conventional aortic arch branching pattern. No acute finding in the visualized neck soft tissues, or in the superior mediastinum/thorax. Biapical scarring. Partially visualized. Bronchovascular cystic changes of the lung parenchyma, which appear unchanged dating back to multiple prior examinations. Bone island of the right humeral head. Nonenlarged, but prominent right level 2 lymph nodes, measuring up to 1.2 cm. No significant spinal canal stenosis. IMPRESSION: 1. Head CTA demonstrates no aneurysm or stenosis of the major intracranial arteries. 2. Neck CTA demonstrates no stenosis of the major cervical arteries. I have personally reviewed the examination and initial interpretation and I agree with the findings. MAE NIETO MD Todd Osborn MD IMG CT ORDERABLES * CT Head w/o Contrast (05/10/2024 3:39 PM CDT) Only the most recent of2 resultswithin the time period is included. Anatomical Region Laterality Modality Head, SUBRAD CT NEURO, SUBRA D CT NEURO, UMP CT NEURO, RAD CT Computed Tomography Impressions 05/10/2024 4:26 PM CDT IMPRESSION: No acute intracranial pathology. I have personally reviewed the examination and initial interpretation and I agree with the findings. MAE NIETO MD Narrative 05/10/2024 4:26 PM CDT EXAM: CT HEAD W/O CONTRAST ??05/10/2024 3:39 PM HISTORY: Concern for stroke. ?? COMPARISON: ??CT 02/13/2024, 02/04/2024. MRI 02/13/2024. TECHNIQUE: Using multidetector thin collimation helical acquisition technique, axial, coronal and sagittal CT images from the skull base to the vertex were obtained without intravenous contrast. Log Driver (topogram) image(s) also obtained and reviewed. FINDINGS: No intracranial hemorrhage, mass effect, or midline shift. No acute loss of pollack-white matter differentiation in the cerebral hemispheres. Ventricles are proportionate to the cerebral sulci. Clear basal cisterns. The bony calvaria and the bones of the skull base are normal. Trace paranasal sinus mucosal thickening. Mastoid air cells are clear. Grossly normal orbits. Procedure Note Mae Nieto MD - 05/10/2024 EXAM: CT HEAD W/O CONTRAST 05/10/2024 3:39 PM HISTORY: Concern for stroke. COMPARISON: CT 02/13/2024, 02/04/2024. MRI 02/13/2024. TECHNIQUE: Using multidetector thin collimation helical acquisition technique, axial, coronal and sagittal CT images from the skull base to the vertex were obtained without intravenous contrast. Log Driver (topogram) image(s) also obtained and reviewed. FINDINGS: No intracranial hemorrhage, mass effect, or midline shift. No acute loss of pollack-white matter differentiation in the cerebral hemispheres. Ventricles are proportionate to the cerebral sulci. Clear basal cisterns. The bony calvaria and the bones of the skull base are normal. Trace paranasal sinus mucosal thickening. Mastoid air cells are clear. Grossly normal orbits. IMPRESSION: No acute intracranial pathology. I have personally reviewed the examination and initial interpretation and I agree with the findings. MAE NIETO MD Todd Osborn MD IMG CT ORDERABLES * CBC with platelets and differential (05/10/2024 2:34 PM CDT) Only the most recent of5 resultswithin the time period is included. WBC Count 8.5 4.0 - 11.0 10e3/uL 05/10/2024 2:45 PM CDT [facility] RBC Count 4.80 3.80 - 5.20 10e6/uL 05/10/2024 2:45 PM CDT [facility] Hemoglobin 14.7 11.7 - 15.7 g/dL 05/10/2024 2:45 PM CDT [facility] Hematocrit 43.9 35.0 - 47.0 % 05/10/2024 2:45 PM CDT [facility] MCV 92 78 - 100 fL 05/10/2024 2:45 PM CDT [facility] MCH 30.6 26.5 - 33.0 pg 05/10/2024 2:45 PM CDT [facility] MCHC 33.5 31.5 - 36.5 g/dL 05/10/2024 2:45 PM CDT [facility] RDW 11.9 10.0 - 15.0 % 05/10/2024 2:45 PM CDT [facility] Platelet Count 185 150 - 450 10e3/uL 05/10/2024 2:45 PM CDT [facility] % Neutrophils 60 % 05/10/2024 2:45 PM CDT [facility] % Lymphocytes 28 % 05/10/2024 2:45 PM CDT [facility] % Monocytes 6 % 05/10/2024 2:45 PM CDT [facility] % Eosinophils 5 % 05/10/2024 2:45 PM CDT [facility] % Basophils 1 % 05/10/2024 2:45 PM CDT [facility] % Immature Granulocytes 0 % 05/10/2024 2:45 PM CDT [facility] NRBCs per 100 WBC 0 <1 /100 024 2:45 PM CDT [facility] Absolute Neutrophils 5.2 1.6 - 8.3 10e3/uL 05/10/2024 2:45 PM CDT [facility] Absolute Lymphocytes 2.3 0.8 - 5.3 10e3/uL 05/10/2024 2:45 PM CDT [facility] Absolute Monocytes 0.5 0.0 - 1.3 10e3/uL 05/10/2024 2:45 PM CDT [facility] Absolute Eosinophils 0.4 0.0 - 0.7 10e3/uL 05/10/2024 2:45 PM CDT [facility] Absolute Basophils 0.0 0.0 - 0.2 10e3/uL 05/10/2024 2:45 PM CDT [facility] Absolute Immature Granulocytes 0.0 <=0.4 10e3/uL 05/10/2024 2:45 PM CDT [facility] Absolute NRBCs 0.0 10e3/uL 05/10/2024 2:45 PM CDT [facility] Blood STRUCTURE OF LEFT HAND / Unknown Venipuncture / Unknown 05/10/2024 2:34 PM CDT 05/10/2024 2:38 PM CDT Todd Osborn MD LAB - BLOOD ORDERABL ES [facility] [place] [facility] Lab [address] [facility], [address] [place] [address] * Troponin T, High Sensitivity (05/10/2024 2:34 PM CDT) Only the most recent of3 resultswithin the time period is included. Troponin T, High Sensitivity <6 <=14 ng/L 05/10/2024 3:05 PM CDT [facility] Comment: Either a [...] urgent outpatient provocative testing. Blood STRUCTURE OF LEFT HAND / Unknown Venipuncture / Unknown 05/10/2024 2:34 PM CDT 05/10/2024 2:38 PM CDT Todd Osborn MD LAB - BLOOD ORDERABL ES [facility] [place] [facility] [address] [facility], [address] [address] * INR (05/10/2024 2:34 PM CDT) Only the most recent of2 resultswithin the time period is included. INR 0.92 0.85 - 1.15 05/10/2024 2:54 PM CDT LABORATORY Blood STRUCTURE OF LEFT HAND / Unknown Venipuncture / Unknown 05/10/2024 2:34 PM CDT 05/10/2024 2:38 PM CDT Todd Osborn MD LAB - BLOOD ORDERABL ES Performing Organization Address [facility] Co de Phone Number U LABORATORY [facility] [place] [facility] Lab [address] [facility], [address] [address] * Partial thromboplastin time (05/10/2024 2:34 PM CDT) Only the most recent of2 resultswithin the time period is included. aPTT 25 22 - 38 Seconds 05/10/2024 2:54 PM CDT LABORATORY Blood STRUCTURE OF LEFT HAND / Unknown Venipuncture / Unknown 05/10/2024 2:34 PM CDT 05/10/2024 2:38 PM CDT Todd Osborn MD LAB - BLOOD ORDERABL ES [facility] LAB[facility] [place] [facility] Lab [address] [facility], [address] [address], [facility] * Basic metabolic panel (05/10/2024 2:34 PM CDT) Only the most recent of2 resultswithin the time period is included. Sodium 140 135 - 145 mmol/L 05/10/2024 3:05 PM CDT [facility] Potassium 4.1 3.4 - 5.3 mmol/L 05/10/2024 3:05 PM CDT [facility] Chloride 104 98 - 107 mmol/L 05/10/2024 3:05 PM CDT [facility] Carbon Dioxide (CO2) 25 22 - 29 mmol/L 05/10/2024 3:05 PM CDT [facility] Anion Gap 11 7 - 15 mmol/L 05/10/2024 3:05 PM CDT [facility] Urea Nitrogen 13.4 6.0 - 20.0 mg/dL 05/10/2024 3:05 PM CDT [facility] Creatinine 0.78 0.51 - 0.95 mg/dL 05/10/2024 3:05 PM CDT [facility] GFR Estimate >90 >60 mL/min/1.7 3m2 05/10/2024 3:05 PM CDT [facility] Comment:eGFR calculated 2020 CKD-EPI equation. Calcium 9.8 8.8 - 10.4 mg/dL 05/10/2024 3:05 PM CDT [facility] Comment:Reference intervals for this test were updated on 03/31/2024 to reflect our healthy population more accurately. There may be differences in the flagging of prior results with similar values performed with this method. Those prior results can be interpreted in the context of the updated reference intervals. Glucose 85 70 - 99 mg/dL 05/10/2024 3:05 PM CDT [facility] Blood STRUCTURE OF LEFT HAND / Unknown Venipuncture / Unknown 05/10/2024 2:34 PM CDT 05/10/2024 2:38 PM CDT Todd Osborn MD LAB - BLOOD ORDERABL ES [facility] [place] [facility] [address] [facility] [address], [address] [place] [address] * Glucose by meter (05/10/2024 2:33 PM CDT) Only the most recent of2 resultswithin the time period is included. GLUCOSE BY METER POCT 78 70 - 99 mg/dL 05/10/2024 2:40 PM CDT [facility] POC Blood, Capillary BLOOD SPECIMEN / Unknown 05/10/2024 2:33 PM CDT 05/10/2024 2:40 PM CDT Todd Osborn MD LAB - BEAKER POCT [facility] POC [facility] Core Lab [address] [facility], [address] [place] [address] * EKG 12-lead, tracing only (05/10/2024 11:25 AM CDT) Only the most recent of3 resultswithin the time period is included. Systolic Blood Pressure mmHg RADIOLOGY RESULTS Diastolic Blood Pressure mmHg RADIOLOGY RESULTS Ventricular Rate 66 BPM RAD IOLOGY RESULTS Atrial Rate 66 BPM RADIOLOG Y RESULTS TX Interval 162 ms RADIOLOG Y RESULTS QRS Duration 84 ms RADIOLO GY RESULTS QT 378 ms RADIOLOGY RESULTS QTc 396 ms RADIOLOGY RESULTS P Montara 67 degrees RADIOLOGY RESULTS R AXIS 84 degrees RADIOLOGY RESULTS T Montara 34 degrees RADIOLOGY RESULTS Interpretation ECG Sinus rhythm Possible Left atrial enlargement Borderline ECG Unconfirmed report - interpretation of this ECG is computer generated - see medical record for final interpretation Confirmed by - EMERGENCY ROOM, PHYSICIAN ([id number]), fashion editor MAILE BEAULIEU ([id number]) on 05/10/2024 11:53:46 AM RADIOLOGY RESULTS 05/10/2024 11:2 5 AM CDT 05/10/2024 11:53 AM CDT Todd Osborn MD ECG ORDERABLES RADIOLOGY RESULTS * CTA Chest Abdomen Pelvis w Contrast [...] identified. SINGH WORLEY MD Denise Woodson APRN [facility] IM CT ORDER NASRIN * CT Abdomen Pelvis [...] is identified. PETRONA HARRIS MD SYSTEM ID: ??[id number] Narrative 03/03/2024 2:[address] ABDOMEN [...] is identified. PETRONA HARRIS MD SYSTEM ID: [id number] Brayan Reich MD [facility] CT ORDERABLES * Comprehensive metabolic panel (03/03/2024 11:49 AM CDT) Only the most recent of3 resultswithin the time period is included. [facility] Signature Sodium 140 135 - 145 mmol/L 03/03/2024 [...] - BLOOD ORDERABL ES Performing Organization Address City/[facility]/ZIP Co de Phone Number [facility] Lab [address] Lab (1st floor, no room number) [place] [address] * HCG qualitative urine (03/03/2024 10:27 AM CDT) hCG Urine Qualitative Negative Negative PRATEEK 03/03/2024 12:05 PM CDT LABORATORY Comment:This test is for scr eening purposes. Results should be interpreted along with the clinical picture. Confirmation testing is available if warranted by ordering [id number], HCG Quantitative . Urine URINE SPECIMEN OBTAINED BY CLEAN CATCH PROCEDURE / Unknown Non-blood Collection / Unknown 03/03/2024 10:27 AM CDT 03/03/2024 10:33 AM CDT Brayan Reich MD LAB - URINE ORDERABL ES Performing Organization Address [facility]/ZIP Co de Phone Number [facility] Lab [address] Lab (1st floor, no room number) [place] [address] * (ABNORMAL) UA with Microscopic reflex to Culture (03/03/2024 10:27 AM CDT) Color Urine Straw Colorless, Straw, Light Yellow, Yellow 03/03/2024 10:40 AM CDT LABORATORY Appearance Urine Clear Clear 03/03/20 24 10:40 AM CDT LABORATORY Glucose Urine Negative Negative mg/dL 03/03/2024 10:40 AM CDT LABORATORY Bilirubin Urine Negative Negative 4 10:40 AM CDT LABORATORY Ketones Urine Negative Negative mg/dL 03/03/2024 10:40 AM CDT LABORATORY [facility] [place] Urine 1.005 1.003 - 1.035 03/03/2024 10:40 [...] MD LAB - URINE ORDERABL ES LABORATORY [facility] Lab [address] Lab (1st floor, no room number) [place] [address] * Erythrocyte sedimentation rate auto (02/28/2024 10:38 AM CDT) Erythrocyte Sedimentation Rate 20 0 - 20 mm/hr 02/28/2024 11:18 AM CDT [facility] Blood VENOUS LINE / Unknown Venipuncture / Unknown 02/28/2024 10:38 AM CDT 02/28/2024 10:47 AM CDT Janna Maranda Jo APRN [facility] LAB - BLOOD ORDERABLES LABORATORY [facility] Lab [address] Lab (1st floor, no room number) [address] * (ABNORMAL) CRP inflammation (02/28/2024 10:38 AM CDT) CRP Inflammation 6.29(H) <5.00 mg/L 02/28/2024 11:39 AM CDT [facility] Blood VENOUS LINE / Unknown Venipuncture / Unknown 02/28/2024 10:38 AM CDT 02/28/2024 10:47 AM CDT Janna Maranda Jo APRN [facility] LAB - BLOOD ORDERABLES LABORATORY [facility] Lab [address] Lab (1st floor, no room number) [address] * TSH with free T4 reflex (02/28/2024 10:27 AM CDT) Pathologist [facility] TSH 3.87 0.30 - 4.20 uIU/mL 02/28/2024 11:56 AM CDT [facility] LAB[facility] Blood ARTERIAL LINE / Unknown Venipuncture / Unknown 02/28/2024 10:27 AM CDT 02/28/2024 11:08 AM CDT Janna Jo APRN [facility] LAB - BLOOD ORDERABLES LABORATORY [facility] Lab [address] Lab (1st floor, no room number) [address] * Lipase (02/27/2024 5:27 PM CDT) Lipase 24 13 - 60 U/L 02/28/2024 8:32 PM CDT [facility] Blood BLOOD SPECIMEN / Unknown Venipuncture / Unknown 02/27/2024 5:27 PM CDT 02/27/2024 5:27 PM CDT Liliane Mcnair PA-C LAB - BLOOD ORDER NASRIN [facility] LAB[facility]ATORY [facility] [place] [facility] [address] [facility] [address] [facility], [address] [place] [address] * (ABNORMAL) UA Microscopic with Reflex [...] LAB - URINE ORDER NASRIN EA LABORATORY [facility] [place] [facility] [address] [facility] [address] [place] [address] [phone] * (ABNORMAL) UA Macroscopic with reflex to [...] 02/27/2024 3:52 PM CDT EA LABORATORY [facility] [place] Urine 1.025 1.003 - 1.035 02/27/2024 3:52 [...] PA-C LAB - URINE ORDER NASRIN LABORATORY [facility] [place] [facility] [address] [facility] [address] [place] [address], [facility] [phone] * MR Brain w/o Contrast (02/13/2024 2:50 [...] a DVA. FRAN ROBBINS MD SYSTEM ID: ??[id number] Narrative 02/13/2024 3:14 PM CDT MR BRAIN [...] a DVA. FRAN ROBBINS MD SYSTEM ID: [id number] Dangelo Chapin Sylvester DO IMG MRI ORDERABL ES * hCG Qualitative (02/13/2024 12:16 PM CDT) hCG Serum Qualitative Negative Negative PRATEEK 02/13/2024 12:49 PM CDT RH LAB[facility]ATORY Comment:This test is for scr eening purposes. Results should be interpreted along with the clinical picture. Confirmation testing is available if warranted by ordering [id number], HCG Quantitative . Blood BLOOD SPECIMEN / Unknown Venipuncture / Unknown 02/13/2024 12:16 PM CDT 02/13/2024 12:20 PM CDT Dangelo Sylvester DO LAB - BLOOD ORDE SUDEEP [facility] Acute [facility] Lab [address] Lab (1st floor, no room number) [place] [address], [facility] * MA Screen Bilateral w/Mat (04/25/2022 5:03 [...] patient. JEVON HOWELL MD Denise Woodson APRN FIRE SAFETY INSPECTOR IMG [facility] PHY ORDERABLES * (ABNORMAL) Lipid panel reflex to direct LDL Fasting (07/27/2021 8:57 AM DIVIDEND CLERK) Cholesterol 202(H) <200 mg/dL 07/28/2021 10:12 AM DIVIDEND CLERK [facility] Triglycerides 91 <150 mg/dL 07/28/2021 10:12 AM DIVIDEND CLERK [facility] LAB[facility]ORY Direct Measure HDL 56 >=50 mg/dL 07/28/2021 10:12 AM DIVIDEND CLERK [facility] LAB[facility] LDL Cholesterol Calculated 128(H) <=100 mg/dL 07/28/2021 10:12 AM DIVIDEND CLERK [facility] LAB[facility] Non HDL Cholesterol 146(H) <130 mg/dL 07/28/2021 10:12 AM DIVIDEND CLERK [facility] LABORATORY Patient Fasting > 8hrs? Yes 07/28/2021 10:12 AM DIVIDEND CLERK [facility] LAB[facility]ATORY Blood STRUCTURE OF RIGHT UPPER LIMB / Unknown Venipuncture / Unknown 07/27/2021 8:57 AM DIVIDEND CLERK 07/27/2021 8:57 AM DIVIDEND CLERK Narrative OX LABORATORY - 07/28/2021 10:12 AM DIVIDEND CLERK Cholesterol Desirable: ??<200 mg/dL Triglycerides Normal: ??Less [...] equal to 220 mg/dL Denise Woodson APRN FIRE SAFETY INSPECTOR LAB - BLOOD ORDERABLES OX LABORATORY [facility] Lab [address] Lab (no room number, 1st floor of clinic) [place] [address], [facility] [phone] from Last 3 Months or Most Recently Relevant to Health Maintenance Additional Health Concerns Active Problems Noted Date Diagnosed Date Increased risk of re-admission 02/18/2024 Advance Directives For more information, please contact: [phone] * Full Code (Latest Code Status on [...] patie nt/ legal decision maker Care Teams Eviscerator Relationship Specialty Start Date End Date Winston Villatroo OD [facility] [address] [facility] [address] [place] [address] PCP - Ophthalmology Ophthalmology 02/11/13 Denise Woodson Ra, APRN FIRE SAFETY INSPECTOR [address] [facility] [place] [place] [address] PCP - General Family Practice 09/21/20 Denise Woodson Ra, APRN FIRE SAFETY INSPECTOR [address] [facility] [place] [place] [address] Assigned PCP 07/17/20 Usha Simon APRN FIRE SAFETY INSPECTOR [address] [facility], [place] [address] Nurse Practitioner Neurological Surgery 01/24/24 Dangelo Salinas MD [address] [place] [address] Neurology 01/27/24 Anastasia Stearns, RN Lead Paper Cone Grader 02/06/24 Germaine Lopez, W Community Health Worker Primary Care - CC 02/18/24 Lisa Zambrano MD [address] [address] Assigned Heart and Vascular Provider 05/08/24 Raul Hoyos MD [address] [facility], [place] [address] Assigned Neuroscience Provider 05/08/24
--- OUTSIDE RECORDS SUMMARY | 2024-05-14 11:56 | XMS_ITS | Encounter Summary ---
Author Organization [facility] Address [address] [place] [address] Care Team Providers Care Workers Compensation Claims Assistant Name Role Phone ShaunaWinston OD Unavailable [phone] Denise Woodson Ra, APRN MANAGER OF PROJECT MANAGEMENT Unavailable + [phone] Denise Woodson Ra, APRN MANAGER OF PROJECT MANAGEMENT Primary Care Provid er Usha Simon APRN MANAGER OF PROJECT MANAGEMENT Unavailable [phone] Dangelo Salinas MD Unavailable Anastasia Stearns RN Unavailable [phone] Germaine Lopez CHW Unavailable [phone] Lisa Zambrano MD Unavailable Raul Hoyos MD Unavailable Encounter Details Date Type Department Care Team (Late st Contact Info) Description 05/13/2024 MyC Medical Advice Initial Department Phoebe Del [...] How often do you attend judaism or taoist serv ices? Never 02/28/2024 Do [...] Answer Date Recorded PHQ-2 Score 2 [facility]ational Stress Questionnaire Answer [...] Description 05/26/2024 8:30 AM CDT [facility] [address] [place] [phone] Denise Woodson Ra, BARRERA MANAGER OF PROJECT MANAGEMENT [address] [place] [address] 06/08/2024 8:30 AM CDT Office Visit [facility] [address] [place] [phone] Denise Woodson Ra, BARRERA MANAGER OF PROJECT MANAGEMENT [address] [facility] [place] [address] documented as of this encounter Goals Goal [...] Mental Health weekly - PT, OT and PULLER OVER - PCP appointment 05/26/24 & 06/08/24 - Stroke Neurology Dr. Hoyos 04/14/24 #[phone] - Epilepsy Neurology Dr. Barcenas 05/05/24 follow up recommended in 2 months: 07/05/24 TBD. #[phone] - Vascular Dr. Zambrano 05/01/24 - follow up recommended in 6 months: 11/11/24 TBD #[phone]. - MTM if covered by insurance TBD [...] clinic with 08/04 after hours services available. De Icer Kit Assembler will remain available as needed. documented as of this encounter Visit Diagnoses Not on filedocumented in this encounter Additional Health Concerns Active Problems Noted Date Diagnosed Date Increased risk of re-admission 02/18/2024 Assessment Noted Time PHQ-9 Depression Total Score: 5 03/17/20 9:45 AM CDT documented as of this encounter Care Teams Workers Compensation Claims Assistant Relationship Specialty Start Date End Date Winston Villatoro OD [facility] [address] [facility] [address] [place] [address] PCP - Ophthalmology Ophthalmology 02/11/13 Denise Woodson Ra, APRN MANAGER OF PROJECT MANAGEMENT [address] [address] PCP - General Family Practice 09/21/20 Denise Woodson Ra, APRN MANAGER OF PROJECT MANAGEMENT [address] [address] Assigned PCP 07/17/20 Usha Simon APRN CNP [address] [address] Nurse Practitioner Neurological Surgery 01/24/24 Dangelo Salinas MD [address] [place] [address] Neurology 01/27/24 Anastasia Stearns, RN Lead De Icer Kit Assembler 02/06/24 Germaine Lopez, [facility] Community Health Worker Primary Care - CC 02/18/24 Lisa Zambrano MD [address] [place] [address] Assigned Heart and Vascular Provider 05/08/24 Raul Hoyos MD [address] [address] Assigned Neuroscience Provider 05/08/24 documented as of this encounter
--- OUTSIDE RECORDS SUMMARY | 2024-05-14 11:56 | XMS_ITS | Clinical Summary ---
Author Organization [facility] [place] Address [address] [place] [address] Care Team Providers Care Passport Support Manager Name Role Phone ShaunaWinston moralez OD Unavailable [phone] Denise Woodson Ra, APRN SHOEMAKING FINISHER Unavailable [phone] Denise Woodson Ra, APRN SHOEMAKING FINISHER Primary Care Provid er Usha Simon APRN SHOEMAKING FINISHER Unavailable [phone] Dangelo Salinas MD Unavailable Anastasia Stearns RN Unavailable [phone] Germaine Lopez CHW Unavailable [phone] Lisa Zambrano MD Unavailable [phone] Raul Hoyos MD Unavailable Allergies Active Allergy Reactions Criticality [...] Description 05/13/2024 MyC Medical Advice Initial Department [facility] 05/13/2024 MyC Medical Advice Initial Department [facility] 05/13/2024 Telephone [facility] [address], [address] [place] [phone] Rohit Barcenas MD 05/13/2024 MyC Medical Advice [facility] Care Coordination [address] [place] [address] Anastasia Stearns RN 05/12/2024 5:25 PM CDT - 05/12/2024 6:59 PM CDT Emergency [facility] Emergency Dept [address] [place] [phone] Chinedu Moon MD Discharge Disposition: Left Without Being Seen 05/12/2024 Travel 05/12/2024 Telephone [facility] [address] [place] [address] Denise Woodson Ra, APRN CNP 05/12/2024 MyC Medical Advice [facility] [address] [place] [address] Denise Woodson Ra, NEGATIVE DEVELOPER SHOEMAKING FINISHER Forms ([employer] - Disabi... 05/12/2024 Telephone [facility] Neurology Clinic [address] 3rd [place] [address] Raul Hoyos MD Symptoms (Stroke symptoms per pt ) 05/12/2024 Telephone [facility] [address] [place] [address] Denise Woodson Ra, APRN CNP 05/11/2024 MyC Medical Advice [facility] [address] [place] [address] Denise Woodson Ra, APRN CNP 05/10/2024 10:48 AM CDT - 05/11/2024 12:03 AM CDT Emergency [facility] Emergency Department [address] [place] [phone] Todd Osborn MD Hackner, Michelle C, MD Intractable headache, unspecified chronicity pattern, unspecified headache type; Dizziness Discharge Disposition: Home or Self Care 05/10/2024 Travel 05/08/2024 MyC Medical Advice [facility] Neurosurgery Clinic [address] 3rd [place] [phone] Robin Zepeda MD 05/06/2024 MyC Medical Advice [facility] Epilepsy Care [address], [address] [place] [phone] Rohit Barcenas MD 05/05/2024 2:30 PM CDT Office Visit Physicians [facility] Epilepsy Care [address], [address] [place] [phone] Rohit Barcenas MD 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) (Primary Dx); Fibromuscular dysplasia (H24); Cerebrovascular accident (CVA), unspecified mechanism (H) 05/05/2024 Travel 05/04/2024 Travel 05/01/2024 10:30 AM CDT Office Visit [facility] Vascular Clinic [place] [address] [address] [place] [place] [address] [place] [phone] Lisa Zambrano MD Fibromuscular dysplasia (H24) ?? on cerbral angio Rt ICA dissection [facility] subsequent head and neck CTA negtaive (Primary Dx); Hyperlipidemia LDL goal <70; ASD (atrial septal defect) amplatzer septal occluder- serial #[id number] ( 06/2006); Cerebrovascular accident (CVA), unspecified mechanism (H) 12/2023 ? 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[place] [address] 05/01/2024 Travel 04/30/2024 Travel 04/30/2024 [facility] [address] [place] [phone] Denise Woodson Ra, APRN CNP Medication Refill 04/28/2024 Travel 04/27/2024 Telephone [facility] [address] [place] [phone] Denise Woodson Ra, APRN CNP Medication Refill 04/15/2024 9:30 AM CDT Therapy Visit [address] [phone] Danya You, PA Danya Restrepo, BATTERY FILLER Cognitive communication deficit (Primary Dx); Cerebrovascular accident (CVA), unspecified mechanism (H) 04/15/2024 8:45 AM CDT Therapy Visit [address] [phone] Denise Woodson Ra, APRN CNP Peterson, Megan A, SIMBAR Cerebrovascular accident (CVA), unspecified mechanism (H) (Primary Dx) 04/15/2024 Travel 04/14/2024 9:30 AM CDT Virtual Visit [facility] Neurology Clinic [address] [address] Raul Hoyos MD History of CVA (cerebrovascular accident) (Primary Dx); Fibromuscular dysplasia (H24) 04/14/2024 Travel 04/14/2024 Telephone [facility] Vascular Clinic [place] [address] [place] [phone] Nurse, Sh [facility] Referral (Pt referred to [facility] by Dr. Raul Hoyos for fibromuscular dysplasia.) 04/13/2024 12:00 PM CDT Virtual Visit [address] [phone] Denise Woodson Ra, APRN CNP Cerebrovascular accident (CVA), unspecified mechanism (H) (Primary Dx) 04/08/2024 Telephone [facility] [address] [place] [phone] Denise Woodson Ra, APRN CNP 04/06/2024 MyC Medical Advice Initial Department [facility] 04/02/2024 4:15 PM CDT Therapy Visit [address] [phone] Danya You, Delicia Higgins, PT Cerebrovascular accident (CVA), unspecified mechanism (H) (Primary Dx) 04/02/2024 3:15 PM CDT Therapy Visit [address] [phone] Danya You, Charis Thomas, BATTERY FILLER Cognitive communication deficit (Primary Dx); Cerebrovascular accident (CVA), unspecified mechanism (H) 04/02/2024 2:15 PM CDT Therapy Visit [address] [phone] Danya You PA Peterson, Megan A, OTR Cerebrovascular accident (CVA), unspecified mechanism (H) (Primary Dx) 04/02/2024 Travel 04/02/2024 Telephone [facility] Neurology [address] [address] Raul Hoyos MD Clinic Care Coordination - Follow-up 04/02/2024 Ajay Medical Advice [facility] Neurology [address] [address] Liliane Cobos 04/01/2024 Travel 03/31/2024 Refill [facility] [address] [place] [phone] Denise Woodson Ra, BARRERA SHOEMAKING FINISHER Medication Refill 03/26/2024 3:30 PM CDT Therapy Visit [address] [phone] Danya You, Delicia Higgins, PT Cerebrovascular accident (CVA), unspecified mechanism (H) (Primary Dx) 03/26/2024 2:30 PM CDT Therapy Visit [address] [phone] Danya You, Charis Thomas, BATTERY FILLER Cognitive communication deficit (Primary Dx); Cerebrovascular accident (CVA), unspecified mechanism (H) 03/26/2024 1:30 PM CDT Therapy Visit [address] [phone] Danya You PA Peterson, Megan A, OTR Cerebrovascular accident (CVA), unspecified mechanism (H) (Primary Dx) 03/26/2024 Travel 03/18/2024 1:21 PM CDT - 03/18/2024 11:59 PM CDT Hospital Encounter [facility] [address] [place] [phone] Denise Woodson Ra, APRN SHOEMAKING FINISHER Fibromuscular dysplasia (H24) Discharge Disposition: Home or Self Care 03/18/2024 Travel 03/17/2024 4:00 PM CDT Therapy Visit [address] [phone] Danya You, Vanessa Prescott, PT Cerebrovascular accident (CVA), unspecified mechanism (H) (Primary Dx) 03/17/2024 2:30 PM CDT Therapy Visit [address] [phone] Danya You, Charis Thomas, BATTERY FILLER Cognitive communication deficit (Primary Dx); Cerebrovascular accident (CVA), unspecified mechanism (H) 03/17/2024 1:30 PM CDT Therapy Visit [address] [phone] Danya You PA Peterson, Megan A OTR Cerebrovascular accident (CVA), unspecified mechanism (H) (Primary Dx) 03/17/2024 10:00 AM CDT Office Visit [address] [address] Denise Woodson Ra, NEGATIVE DEVELOPER SHOEMAKING FINISHER History of seizure (Primary Dx); Cerebrovascular accident (CVA), unspecified mechanism (H) 03/16/2024 Travel 03/16/2024 Telephone [facility] Neurology [address] [phone] Raul Hoyos MD Appointment (Follow up ) 03/16/2024 MyC Medical Advice [facility] Neurology [address] [phone] Ora Bazan 03/11/2024 4:15 PM CDT Therapy Visit [address] [phone] Danya You, Delicia Higgins, PT Cerebrovascular accident (CVA), unspecified mechanism (H) (Primary Dx) 03/11/2024 3:00 PM CDT Therapy Visit [address] [phone] Danya You, Charis Thomas, BATTERY FILLER Cognitive communication deficit (Primary Dx); Cerebrovascular accident (CVA), unspecified mechanism (H) 03/11/2024 2:15 PM CDT Therapy Visit [address] [phone] Danya You PA Peterson, Megan A, OTR Cerebrovascular accident (CVA), unspecified mechanism (H) (Primary Dx) 03/11/2024 Travel 03/09/2024 Telephone [facility] Neurology Clinic [address] 3rd [place] [address] Raul Hoyos MD Call Back (Follow up appointment ) 03/05/2024 4:15 PM CDT Therapy Visit [address] [address] Danya You, Delicia Higgins, PT Cerebrovascular accident (CVA), unspecified mechanism (H) (Primary Dx) 03/05/2024 3:15 PM CDT Therapy Visit [address] [phone] Danya You PA Raasch, Sharon, JUAN Cerebrovascular accident (CVA), unspecified mechanism (H) (Primary Dx); Cognitive communication deficit 03/05/2024 1:30 PM CDT Therapy Visit [address] [address] Danya You PA Peterson, Megan A, OTR Cerebrovascular accident (CVA), unspecified mechanism (H) (Primary Dx) 03/05/2024 Travel 03/04/2024 Travel 03/03/2024 11:14 AM CDT - 03/03/2024 2:19 PM CDT Emergency [facility] Emergency Dept [address] [place] [address] Brayan Reich MD Right flank pain; Right sided abdominal pain Discharge Disposition: Home or Self Care 03/03/[address] [address] Denise Woodson Ra, APRN SHOEMAKING FINISHER Medication Refill 03/03/2024 Travel 03/02/2024 Orders Only [address] [place] [address] Liliane Mcnair PA-C Hematuria, unspecified type (Primary Dx) 02/28/2024 10:46 AM CDT - 02/28/2024 11:59 PM CDT Hospital Encounter [facility] Imaging [address] [place] [phone] Janna Jo APRN CNP Flank pain; Abdominal pain, epigastric Discharge Disposition: Home or Self Care 02/28/2024 10:00 AM CDT Office [facility] [address] [facility] [address] [place] [phone] Janna Jo APRN CNP Flank pain; Abdominal pain, epigastric; TSH elevation 02/27/2024 3:00 PM CDT Office Visit [address] [place] [address] Liliane Mcnair PA-C Flank pain (Primary Dx); Abdominal pain, epigastric; Cerebrovascular accident (CVA), unspecified mechanism (H) 02/27/2024 Travel 02/27/2024 MyC Medical Advice [address] [address] Denise Woodson Ra, NEGATIVE DEVELOPER SHOEMAKING FINISHER 02/24/2024 Travel 02/19/2024 3:00 PM CDT Therapy Visit [address] [phone] Danya You PA Peterson, Megan A, SIMBAR Cerebrovascular accident (CVA), unspecified mechanism (H) (Primary Dx) 02/19/2024 Travel 02/17/2024 2:45 PM CDT Therapy Visit [address] [phone] Danya You, Aliya [place], BATTERY FILLER Cerebrovascular accident (CVA), unspecified mechanism (H) (Primary Dx); Cognitive communication deficit 02/17/2024 Travel 02/15/2024 Travel 02/14/2024 2:45 PM CDT Therapy Visit [address] [phone] Danya You, Maria Eugenia Palencia, PT Cerebrovascular accident (CVA), unspecified mechanism (H) (Primary Dx) 02/14/2024 2:00 PM CDT Therapy Visit [address] [phone] Danya You PA Raasch, Sharon, BATTERY FILLER Cerebrovascular accident (CVA), unspecified mechanism (H) (Primary Dx) 02/14/2024 12:45 PM CDT Therapy Visit [address] [phone] Danya You, Isabel Payan, OTR Cerebrovascular accident (CVA), unspecified mechanism (H) (Primary Dx) 02/14/2024 Telephone [facility] [address] [place] [address] Denise Woodson Ra, BARRERA SHOEMAKING FINISHER 02/14/2024 MyC Medical Advice [facility] [address] [place] [phone] Denise Woodson Ra, NEGATIVE DEVELOPER SHOEMAKING FINISHER Medication Request; Forms 02/14/2024 Travel 02/13/2024 12:11 PM CDT - 02/13/2024 3:28 PM CDT Emergency [facility] Emergency Dept [address] [place] [address] Dangelo Sylvester DO Dizziness Discharge Disposition: Home or Self Care 02/13/2024 Travel 02/12/2024 3:40 PM CDT Virtual Visit [facility] Neurosurgery [place] [address] [facility] [address] [place] [address] Robin Zepeda MD Dural arteriovenous fistula (Primary Dx) 02/12/2024 Telephone [facility] Neurosurgery [facility] [address] [facility] [address] [place] [phone] Robin Zepeda MD from Last 3 Months Immunizations Name [...] Thyroid Disease No family hx of reviewed 9/20/20 06 Relation Status Comments Brother Alive x3 [...] How often do you attend cheondoism or hindu serv ices? Never 02/28/2024 Do you belong [...] Answer Date Recorded PHQ-2 Score 2 05/05/2024 [facility]ational Stress Questionnaire [...] Description 05/26/2024 8:30 AM CDT Office Visit [facility] [place] [address] [place] [place] [phone] Denise Woodson Ra, NEGATIVE DEVELOPER SHOEMAKING FINISHER [address] [facility], [place] [phone] 06/08/2024 8:30 AM CDT Office Visit [facility] [place] [address] [place] [place] [phone] Denise Woodson Ra, NEGATIVE DEVELOPER SHOEMAKING FINISHER [address] [facility] [place] [phone] Health Maintenance Due Date Last Done Comments [...] Additional history exists INFLUENZA VACCINE (#1) 2024 2, 06/23/2021, 07/27/2020, Additional history exists ASTHMA CONTROL TEST 09/17/2024 03/17/2024, 02/06/2024, 01/22/2022, Additional history exists PHQ-9 09/17/2024 03/17/2024, 01/15, 02/06/2024, Additional history exists ANNUAL REVIEW OF HM ORDERS 02/05/2025 02/06/2024, MAMMO SCREENING 07/30/2025 07/30/2023, 07/17, 04/25/2022, Additional history exists COLORECTAL CANCER SCREENING 10/28/2025 sDNA (Cologuard) 10/28/2025 10/28/2022 GLUCOSE 05/10/2027 05/10/2024, 04/17, 03/03/2024, Additional history exists DTAP/TDAP/TD IMMUNIZATION (7 - [...] Mental Health weekly - PT, OT and BATTERY FILLER - PCP appointment 05/26/24 & 06/08/24 - Stroke Neurology Dr. Hoyos 04/14/24 #[phone] - Epilepsy Neurology Dr. Barcenas 05/05/24 follow up recommended in 2 months: 07/05/24 TBD. #[phone] - Vascular Dr. Zambrano 05/01/24 - follow up recommended in 6 months: 11/11/24 TBD #[phone]. - MTM if covered by insurance TBD [...] clinic with 24/ after hours services available. Display Associate will remain available as needed. Procedures Procedure [...] DIRECT LDL PANEL Routine 07/27/2021 8:57 AM CUSTOMER FACILITIES SUPERVISOR CARDIOVASCULAR SCREENING; LDL GOAL LESS THAN [...] MR BRAIN W/O and W CONTRAST LOCATION: [facility] DATE: 05/10/2024 INDICATION: dizziness; Headache; Acute YANG [...] MR BRAIN W/O and W CONTRAST LOCATION: [facility] DATE: 05/10/2024 INDICATION: dizziness; Headache; Acute YANG [...] or abnormal enhancement visualized. Felicita Rae MD IMG MRI ORDERABLES * (ABNORMAL) Keppra (Levetiracetam) Level (05/10/2024 6:49 PM CDT) Keppra (Levetiracetam ) Level 7.6(L) 10.0 - 40.0 ??g/mL 05/10/2024 7:32 PM CDT [facility] Blood BLOOD SPECIMEN / Unknown Venipuncture / Unknown 05/10/2024 6:49 PM CDT 05/10/2024 6:52 PM CDT Felicita Rae MD LAB - BLOOD ORDERA BLES [facility] Core Lab [address] [facility], [address] [phone] * CTA Head Neck with Contrast [...] the upper aortic arch through the red cliff of [place]. This CT angiogram data was [...] the upper aortic arch through the red cliff of [place]. This CT angiogram data was reconstructed at [...] findings. MAE NIETO MD Todd Osborn MD IM CT ORDERABLES * CT Head w/o Contrast [...] the vertex were obtained without intravenous contrast. Script Developer (topogram) image(s) also obtained and reviewed. FINDINGS: [...] the vertex were obtained without intravenous contrast. Script Developer (topogram) image(s) also obtained and reviewed. FINDINGS: [...] LAB - BLOOD ORDERABL ES [facility] Core Lab [address] [facility], [address] [place] [address], [facility] * Troponin T, High Sensitivity (05/10/2024 2:34 PM CDT) Only the most recent of3 resultswithin the time period is included. Troponin T, High Sensitivity <6 <=14 ng/L 05/10/2024 3:05 PM CDT [facility] Comment: Either a [...] Osborn MD LAB - BLOOD ORDERABL ES LABORATORY [facility] Core Lab [address] [place] [address], Room [address] * INR (05/10/2024 2:34 PM CDT) Only the most recent of2 resultswithin the time period is included. Pathologist [facility] INR 0.92 0.85 - 1.15 05/10/2024 2:54 PM CDT [facility] Blood STRUCTURE OF LEFT HAND / Unknown Venipuncture / Unknown 05/10/2024 2:34 PM CDT 05/10/2024 2:38 PM CDT Todd Osborn MD LAB - BLOOD ORDERABL ES LABORATORY [facility] [place] Core Lab [address] [facility], [address] * Partial thromboplastin time (05/10/2024 2:34 PM CDT) Only the most recent of2 resultswithin the time period is included. aPTT 25 22 - 38 Seconds 05/10/2024 2:54 PM CDT [facility] Blood STRUCTURE OF LEFT HAND / Unknown Venipuncture / Unknown 05/10/2024 2:34 PM CDT 05/10/2024 2:38 PM CDT Todd Osborn MD LAB - BLOOD ORDERABL ES [facility] Core Lab [address] [facility], [address] * Basic metabolic panel (05/10/2024 2:34 PM [...] 3:05 PM CDT [facility] Comment:eGFR calculated us2020 CKD-EPI equation. Calcium 9.8 8.8 - 10.4 [...] - BLOOD ORDERABL ES Performing Organization Address City/[facility]/ZIP Co de Phone Number [facility] Core Lab [address] [facility], [address] * Glucose by meter (05/10/2024 2:33 PM CDT) Only the most recent of2 resultswithin the time period is included. GLUCOSE BY METER POCT 78 70 - 99 mg/dL 05/10/2024 2:40 PM CDT [facility] POC Blood, Capillary BLOOD SPECIMEN / Unknown 05/10/2024 2:33 PM CDT 05/10/2024 2:40 PM CDT Todd Osborn MD LAB - BEAKER POCT LABORATORY POC [facility] Core Lab [address] [facility], [address] [place] [address] [place] [address] * EKG 12-lead, tracing only (05/10/2024 11:25 AM CDT) Only the most recent of3 resultswithin the time period is included. Systolic Blood Pressure mmHg RADIOLOGY RESULTS Diastolic Blood Pressure mmHg RADIOLOGY RESULTS Ventricular Rate 66 BPM RAD IOLOGY RESULTS Atrial Rate 66 BPM RADIOLOG Y RESULTS AL Interval 162 ms RADIOLOG Y RESULTS QRS Duration 84 ms RADIOLO GY RESULTS QT 378 ms RADIOLOGY RESULTS QTc 396 ms RADIOLOGY RESULTS P [place] 67 degrees RADIOLOGY RESULTS R AXIS 84 degrees RADIOLOGY RESULTS T [place] 34 degrees RADIOLOGY RESULTS Interpretation ECG Sinus rhythm Possible Left atrial enlargement Borderline ECG Unconfirmed report - interpretation of this ECG is computer generated - see medical record for final interpretation Confirmed by - EMERGENCY ROOM, PHYSICIAN ([id number]), metropolitan editor MAILE STEINER ([id number]) on 05/10/2024 11:53:46 AM RADIOLOGY RESULTS 05/10/2024 [...] identified. SINGH WORLEY MD Denise Woodson APRN SHOEMAKING FINISHER IMG CT ORDER NASRIN * CT Abdomen [...] is identified. PETRONA HARRIS MD SYSTEM ID: [id number] Narrative 03/03/2024 2:[address] ABDOMEN [...] is identified. PETRONA HARRIS MD SYSTEM ID: [id number] Brayan Reich MD IMG CT ORDERABLES * Comprehensive metabolic panel (03/03/2024 [...] 1:14 PM CDT [facility] Comment:eGFR calculated 2020 CKD-EPI equation. Calcium 9.8 8.6 - [...] MD LAB - BLOOD ORDERABL ES LABORATORY [facility] Acute Care Lab [address] [facility] Lab (1st floor, no room number) [place] [address] * HCG qualitative urine (03/03/2024 10:27 AM CDT) hCG Urine Qualitative Negative Negative PRATEEK 03/03/2024 12:05 PM CDT [facility] Comment:This test is for scr eening purposes. Results should be interpreted along with the clinical picture. Confirmation testing is available if warranted by ordering [id number], HCG Quantitative . Urine URINE SPECIMEN OBTAINED BY CLEAN CATCH PROCEDURE / Unknown Non-blood Collection / Unknown 03/03/2024 10:27 AM CDT 03/03/2024 10:33 AM CDT Brayan Reich MD LAB - URINE ORDERABL ES LABORATORY [facility] Acute Care Lab [address] [facility] Lab (1st floor, no room number) [place] [address], [facility] * (ABNORMAL) UA with Microscopic reflex [...] mg/dL 03/03/2024 10:40 AM CDT LABORATORY Specific [place] Urine 1.005 1.003 - 1.035 03/03/2024 10:40 [...] 10:40 AM CDT Urine Culture not indicated Bryaan Reich MD LAB - URINE ORDERABL ES [facility] Care Lab [address] Lab (1st floor, no room number) [address] * Erythrocyte sedimentation rate auto (02/28/2024 10:38 AM CDT) Erythrocyte Sedimentation Rate 20 0 - 20 mm/hr 02/28/2024 11:18 AM CDT LABORATORY Blood VENOUS LINE / Unknown Venipuncture / Unknown 02/28/2024 10:38 AM CDT 02/28/2024 10:47 AM CDT Janna Jo APRN SHOEMAKING FINISHER LAB - BLOOD ORDERABLES Performing Organization Address City/[facility]/ZIP Co de Phone Number [facility] Acute Care Lab [address] Lab (1st floor, no room number) [address] * (ABNORMAL) CRP inflammation (02/28/2024 10:38 AM CDT) CRP Inflammation 6.29(H) <5.00 mg/L 02/28/2024 11:39 AM CDT LABORATORY Blood VENOUS LINE / Unknown Venipuncture / Unknown 02/28/2024 10:38 AM CDT 02/28/2024 10:47 AM CDT Janna Jo APRN SHOEMAKING FINISHER LAB - BLOOD ORDERABLES [facility] Acute Care Lab [address] Lab (1st floor, no room number) [address] * TSH with free T4 reflex (02/28/2024 10:27 AM CDT) [facility] TSH 3.87 0.30 - 4.20 uIU/mL 02/28/2024 11:56 AM CDT [facility] Blood ARTERIAL LINE / Unknown Venipuncture / Unknown 02/28/2024 10:27 AM CDT 02/28/2024 11:08 AM CDT Janna Jo APRN SHOEMAKING FINISHER LAB - BLOOD ORDERABLES [facility] Acute Care Lab [address] Lab (1st floor, no room number) [place] [address] * Lipase (02/27/2024 5:27 PM CDT) [facility] Lipase 24 13 - 60 U/L 02/28/2024 8:32 PM CDT [facility] Blood BLOOD SPECIMEN / Unknown Venipuncture / Unknown 02/27/2024 5:27 PM CDT 02/27/2024 5:27 PM CDT Liliane Mcnair PA-C LAB - BLOOD ORDER NASRIN [facility] [place] Core Lab [address] [facility] [address], [address] [place] [address] * (ABNORMAL) UA Microscopic with Reflex to Culture (02/27/2024 3:42 PM CDT) [facility] Bacteria Urine Moderate( A) None Seen /HPF [...] LAB - URINE ORDER NASRIN EA LABORATORY [facility] [place] [facility] Lab [address] [facility] [address] [place] [address], [facility] [phone] * (ABNORMAL) UA Macroscopic with reflex to [...] 02/27/2024 3:52 PM CDT [facility] Specific [place] Urine 1.025 1.003 - 1.035 02/27/2024 3:52 [...] LAB - URINE ORDER NASRIN EA LABORATORY [facility] [place] [facility] [address] [facility] [place] [address], [facility] [phone] * MR Brain w/o Contrast (02/13/2024 2:50 [...] a DVA. FRAN ROBBINS MD SYSTEM ID: [id number] Narrative 02/13/2024 3:14 PM CDT MR BRAIN [...] a DVA. FRAN ROBBINS MD SYSTEM ID: [id number] Dangelo Sylvester DO IMG MRI ORDERABL ES * hCG Qualitative (02/13/2024 12:16 PM CDT) hCG Serum Qualitative Negative Negative PRATEEK 02/13/2024 12:49 PM CDT [facility] LAB[facility]AT[facility] Comment:This test is for scr eening purposes. Results should be interpreted along with the clinical picture. Confirmation testing is available if warranted by ordering [id number], HCG Quantitative . Blood BLOOD SPECIMEN / Unknown Venipuncture / Unknown 02/13/2024 12:16 PM CDT 02/13/2024 12:20 PM CDT Dangelo Sylvester DO LAB - [facility]LOOD [facility] Lab [address] [facility] Lab (1st floor, no room number) [place] [address] * MA Screen Bilateral w/Mat (04/25/2022 [...] patient. JEVON HOWELL MD Denise Woodson APRN SHOEMAKING FINISHER IMG MAMMOGRA PHY ORDERABLES * (ABNORMAL) Lipid panel reflex to direct LDL Fasting (07/27/2021 8:57 AM CUSTOMER FACILITIES SUPERVISOR) Cholesterol 202(H) <200 mg/dL 07/28/2021 10:12 AM CUSTOMER FACILITIES SUPERVISOR [facility] Triglycerides 91 <150 mg/dL 07/28/2021 10:12 AM CUSTOMER FACILITIES SUPERVISOR [facility] Direct Measure HDL 56 >=50 mg/dL 07/28/2021 10:12 AM CUSTOMER FACILITIES SUPERVISOR [facility] LDL Cholesterol Calculated 128(H) <=100 mg/dL 07/28/2021 10:12 AM CUSTOMER FACILITIES SUPERVISOR [facility] Non HDL Cholesterol 146(H) <130 mg/dL 07/28/2021 10:12 AM CUSTOMER FACILITIES SUPERVISOR [facility] Patient Fasting > 8hrs? Yes 07/28/2021 10:12 AM CUSTOMER FACILITIES SUPERVISOR [facility] Blood STRUCTURE OF RIGHT UPPER LIMB / Unknown Venipuncture / Unknown 07/27/2021 8:57 AM CUSTOMER FACILITIES SUPERVISOR 07/27/2021 8:57 AM CUSTOMER FACILITIES SUPERVISOR Narrative [facility]ATORY - 07/28/2021 10:12 AM CUSTOMER FACILITIES SUPERVISOR Cholesterol Desirable: ??<200 mg/dL Triglycerides Normal: [...] equal to 220 mg/dL Denise Woodson APRN SHOEMAKING FINISHER LAB - BLOOD ORDERABLES [facility] Lab [address] Lab (no room number, 1st floor of clinic) [place] [address], [facility] [phone] from Last 3 Months or Most Recently Relevant to Health Maintenance Additional Health Concerns Active Problems Noted Date Diagnosed Date Increased risk of re-admission 02/18/2024 Advance Directives For more information, please contact: [phone] * Full Code (Latest Code Status on [...] patie nt/ legal decision maker Care Teams Passport Support Manager Relationship Specialty Start Date End Date Winston Villatoro OD [facility] [address] [place] [id number] PCP - Ophthalmology Ophthalmology 02/11/13 Denise Woodson Ra, NEGATIVE DEVELOPER SHOEMAKING FINISHER [address] [address] [place] [id number] PCP - General Family Practice 09/21/20 Denise Woodson Ra, APRN SHOEMAKING FINISHER [address] [place] [place] [address] Assigned PCP 07/17/20 Usha Simon APRN SHOEMAKING FINISHER [address] [place], [place] [address] Nurse Practitioner Neurological Surgery 01/24/24 Dangelo Salinas MD [address] [place] [address] Neurology 01/27/24 Anastasia Stearns, RN Lead Display Associate 02/06/24 Germaine Lopez, [facility] Community Health Worker Primary Care - CC 02/18/24 Lisa Zambrano MD [address] [place] [address] Assigned Heart and Vascular Provider 05/08/24 Raul Hoyos MD [id number] [address] Assigned Neuroscience Provider 05/08/24
--- OUTSIDE RECORDS SUMMARY | 2024-05-14 11:56 | XMS_ITS | Encounter Summary ---
Author Organization [place] Address [address] [place] [address] Care Team Providers Care Video And Sound Recorder Name Role Phone ShaunaWinston OD Unavailable [phone] Densie Woodson Ra, APRN RETAIL LOSS PREVENTION SPECIALIST Unavailable + [phone] Denise Woodson Ra, APRN RETAIL LOSS PREVENTION SPECIALIST Primary Care Provid er Usha Simon APRN RETAIL LOSS PREVENTION SPECIALIST Unavailable [phone] Dangelo Salinas MD Unavailable Anastasia Stearns RN Unavailable [phone] Germaine Lopez CHW Unavailable Lisa Zambrano MD Unavailable Raul Hoyos MD [...] Never 02/28/2024 How often do you attend alevism or confucianism serv ices? Never 02/28/2024 Do [...] Answer Date Recorded PHQ-2 Score 2 05/05/2024 [facility] - Occupational Stress [...] 8:30 AM CDT [facility] [address] [place] [phone] Denise Woodson Ra, BARRERA RETAIL LOSS PREVENTION SPECIALIST [address] [place] [address] 06/08/2024 8:30 AM CDT Office Visit [facility] [place] [address] [place] [phone] Denise Woodson Ra, BARRERA RETAIL LOSS PREVENTION SPECIALIST [address] [place] [place] [address] documented as of this encounter Goals Goal [...] Mental Health weekly - PT, OT and UNCLAIMED PROPERTY OFFICER - PCP appointment 05/26/24 & 06/08/24 - Stroke Neurology Dr. Hoyos 04/14/24 #[phone] - Epilepsy Neurology Dr. Barcenas 05/05/24 follow up recommended in 2 months: 07/05/24 TBD. #[phone] - Vascular Dr. Zambrano 05/01/24 - follow up recommended in 6 months: 11/11/24 TBD #[phone]. - MTM if covered by insurance TBD [...] clinic with 08/04 after hours services available. Community Recreation Programmer will remain available as needed. documented as [...] End Date Winston Villatoro OD [facility] [address] [facility] [address] [place] [address] PCP - Ophthalmology Ophthalmology 02/11/13 Denise Woodson Ra, APRN RETAIL LOSS PREVENTION SPECIALIST [address] [address] [address] PCP - General Family Practice 09/21/20 Denise Woodson Ra, APRN RETAIL LOSS PREVENTION SPECIALIST [address] [place] [place] [address] Assigned PCP 07/17/20 Usha Simon APRN CNP [address] [address] Nurse Practitioner Neurological Surgery 01/24/24 Dangelo Salinas MD [address] [place] [address] Neurology 01/27/24 Anastasia Stearns, RN Lead Community Recreation Programmer 02/06/24 Germaine Lopez, [facility] Community Health Worker Primary Care - CC 02/18/24 Lisa Zambrano MD [address] [place] [address] Assigned Heart and Vascular Provider 05/08/24 Raul Hoyos MD [address] [address] Assigned Neuroscience Provider 05/08/24 documented as of this encounter
--- OUTSIDE RECORDS SUMMARY | 2024-05-14 11:56 | XMS_ITS | Encounter Summary ---
Author Organization Lane Address [address] [place] [address] Care Team Providers Care Quality Assurance Tester Name Role Phone Winston Villatoro OD Unavailable [phone] Denise Woodson Ra, APRN RETAIL PHARMACIST Unavailable + [phone] Denise Woodson Ra, APRN RETAIL PHARMACIST Primary Care Provid er Usha Simon APRN RETAIL PHARMACIST Unavailable Dangelo Salinas MD Unavailable Anastasia Stearns RN Unavailable Germaine Lopez Unavailable Lisa Zambrano MD Unavailable [phone] Raul Hoyos MD Unavailable Encounter Details Date Type Department Care Team (Late st Contact Info) Description 05/13/2024 [facility] Care Coordination [address] [place] [address] Anastasia Stearns, RN Social History Tobacco Use Types Packs/Day [...] How often do you attend restorationist or presybeterian serv ices? Never 02/28/2024 Do you belong [...] Answer Date Recorded PHQ-2 Score 2 05/05/2024 [facility] - Occupational Stress Questionnaire Answer Date [...] Description 05/26/2024 8:30 AM CDT [facility] [address] [place] [phone] Denise Woodson Ra, BARRERA RETAIL PHARMACIST [address] [facility] [place] [address] 06/08/2024 8:30 AM CDT Office Visit [facility] [place] [address] [place] [phone] Denise Woodson Ra, BARRERA RETAIL PHARMACIST [address] [place] [place], [place] [address] documented as of this encounter Goals Goal [...] Mental Health weekly - PT, OT and CABLE TELEVISION TECHNICIAN - PCP appointment 05/26/24 & 06/08/24 - Stroke Neurology Dr. Hoyos 04/14/24 #[phone] - Epilepsy Neurology Dr. Barcenas 05/05/24 follow up recommended in 2 months: 07/05/24 TBD. #[phone] - Vascular Dr. Zambrano 05/01/24 - follow up recommended in 6 months: 11/11/24 TBD #[phone]. - MTM if covered by insurance TBD [...] clinic with 24/ after hours services available. Chicken Dresser will remain available as needed. documented as of this encounter Visit Diagnoses Not on filedocumented in this encounter Additional Health Concerns Active Problems Noted Date Diagnosed Date Increased risk of re-admission 02/18/2024 Assessment Noted Time PHQ-9 Depression Total Score: 5 03/17/20 9:45 AM CDT documented as of this encounter Care Teams Quality Assurance Tester Relationship Specialty Start Date End Date Winston Villatoro OD [facility] [address] [place] [id number] PCP - Ophthalmology Ophthalmology 02/11/13 Denise Woodson Ra, FIELD TECHNICAL SUPPORT CONSULTANT RETAIL PHARMACIST [address] [place] [address] PCP - General Family Practice 09/21/20 Denise Woodson Ra, APRN RETAIL PHARMACIST [address] [place] [address] Assigned PCP 07/17/20 Usha Simon APRN RETAIL PHARMACIST [address] [place], [place] [address] Nurse Practitioner Neurological Surgery 01/24/24 Dangelo Salinas MD [address] [place] [address] Neurology 01/27/24 Anastasia Stearns, RN Lead Chicken Dresser 02/06/24 Germaine Lopez, [facility] Community Health Worker Primary Care - CC 02/18/24 Lisa Zambarno MD [address] [place] [id number] Assigned Heart and Vascular Provider 05/08/24 Raul Hoyos MD [address] [address]674[address], [place] [address] Assigned Neuroscience Provider 05/08/24 documented as of this encounter
--- OUTSIDE RECORDS SUMMARY | 2024-05-14 11:56 | XMS_ITS | Encounter Summary ---
Author Organization [place] Address [address] [place] [address] Care Team Providers Care Cocktail Waitress Name Role Phone ShaunaWinston OD Unavailable [phone] Denise Woodson Ra, APRN OCCUPATIONAL NURSE Unavailable + [phone] Denise oWodson Ra, APRN OCCUPATIONAL NURSE Primary Care Provid er Usha Simon APRN OCCUPATIONAL NURSE Unavailable [phone] Dangelo Salinas MD Unavailable Anastasia Stearns RN Unavailable Germaine Lopez CHW Unavailable [phone] Lisa Zambrano MD Unavailable + [phone] Raul Hoyos MD Unavailable Encounter Details Date Type Department Care Team (Latest Contact Info) Description 05/12/2024 Travel Social History Tobacco Use Types Packs/Day [...] Never 02/28/2024 How often do you attend mormon or temple serv ices? Never 02/28/2024 Do you belong to any clubs o r organizations such as mormon groups, unions, fraternal or athletic groups, or [...] Answer Date Recorded PHQ-2 Score 2 05/05/2024 [facility] [place] [facility] Occupat ional Health - Occupational Stress [...] Description 05/26/2024 8:30 AM CDT Office Visit [facility] [address] [place] [phone] Denise Woodson Ra, APRN OCCUPATIONAL NURSE [address] [place] [address] 06/08/2024 8:30 AM CDT [facility] [address] [place] [phone] Denise Woodson Ra, BARRERA OCCUPATIONAL NURSE [address] [place] [address] documented as of this encounter Goals Goal [...] Mental Health weekly - PT, OT and CANDY DIPPER - PCP appointment 05/26/24 & 06/08/24 - Stroke Neurology Dr. Hoyos 04/14/24 #[phone] - Epilepsy Neurology Dr. Barcenas 05/05/24 follow up recommended in 2 months: 07/05/24 TBD. #[phone] - Vascular Dr. Zambrano 05/01/24 - follow up recommended in 6 months: 11/11/24 TBD #[phone]. - MTM if covered by insurance TBD [...] clinic with 08/04 after hours services available. Advance Agent will remain available as needed. documented as of this encounter Visit Diagnoses Not on filedocumented in this encounter Additional Health Concerns Active Problems Noted Date Diagnosed Date Increased risk of re-admission 02/18/2024 Assessment Noted Time PHQ-9 Depression Total Score: 5 03/17/20 9:45 AM CDT documented as of this encounter Care Teams Cocktail Waitress Relationship Specialty Start Date End Date Winston Villatoro OD [facility] [address] [place] [address] PCP - Ophthalmology Ophthalmology 02/11/13 Denise Woodson Ra, APRN OCCUPATIONAL NURSE [address] [address] [address] PCP - General Family Practice 09/21/20 Denise Woodson Ra, APRN OCCUPATIONAL NURSE [address] [place] [address] Assigned PCP 07/17/20 Usha Simon APRN CNP [address] [address] Nurse Practitioner Neurological Surgery 01/24/24 Dangelo Salinas MD [address] [place] [address] Neurology 01/27/24 Anastasia Stearns, RN Lead Advance Agent 02/06/24 Germaine Lopez, W Community Health Worker Primary Care - CC 02/18/24 Lisa Zambrano MD [address] [place] [address] Assigned Heart and Vascular Provider 05/08/24 Raul Hoyos MD [address] [address] Assigned Neuroscience Provider 05/08/24 documented as of this encounter
--- OUTSIDE RECORDS SUMMARY | 2024-05-14 11:56 | XMS_ITS | Encounter Summary ---
Author Organization [place] Address [address] [place] [address] Care Team Providers Care Promotions Specialist Name Role Phone Winston Villatoro OD Unavailable Denise Woodson Ra, APRN TOBACCO FEEDER CATCHER Unavailable Denise Woodson Ra, APRN TOBACCO FEEDER CATCHER Primary Care Provid er Usha Simon APRN TOBACCO FEEDER CATCHER Unavailable [phone] Dangelo Salinas MD Unavailable Anastasia Stearns RN Unavailable Germaine Lopez CHW Unavailable [phone] Lisa Zambrano MD Unavailable [phone] Raul Hoyos MD Unavailable Encounter Details Date Type Department Care Team (Late st Contact Info) Description 05/13/2024 Telephone [facility] Epilepsy Care [address], [address] [place] [address] Rohit Barcenas MD [address] [place] [address] [address] [place], [place] [address] Social History Tobacco Use Types Packs/Day Years [...] Never 02/28/2024 How often do you attend christian or rastafarian serv ices? Never 02/28/2024 Do [...] Answer Date Recorded PHQ-2 Score 2 05/05/2024 [facility] - Occupational Stress Questionnaire Answer [...] Miscellaneous Notes * Telephone Encounter - Tran Gan RN - 05/14/2024 11:01 AM CDT Call returned to patient. Received voicemail. Left message with call back number * Telephone Encounter - Susan Alexander - 05/13/2024 3:11 PM CDT What is the concern that needs to be addressed by a nurse? Patient experiencing dizziness, headache, and balance issues. Migraine started before starting Trileptal. Blurred vision started after starting Trileptal, second dose. May a detailed message be left on voicemail? Yes Date of last office visit: 05/05/24 Message routed to: ADRIA RIBEIRO Pool documented in this encounter Plan of Treatment Upcoming Encounters Date Type Department Care Team (Late st Contact Info) Description 05/26/2024 8:30 AM CDT [facility] [address] [place] [phone] Denise Woodson Ra, FINANCIAL RETIREMENT PLAN SPECIALIST TOBACCO FEEDER CATCHER [address] [place] [address] [place], [place] [address] 06/08/2024 8:30 AM CDT Office Visit [facility] [place] [address] [place] [phone] Denise Woodson Ra, FINANCIAL RETIREMENT PLAN SPECIALIST TOBACCO FEEDER CATCHER [address] [facility] [place] [address] documented as of this encounter Goals Goal [...] Mental Health weekly - PT, OT and COPY EDITOR - PCP appointment 05/26/24 & 06/08/24 - Stroke Neurology Dr. Hoyos 04/14/24 #[phone] - Epilepsy Neurology Dr. Barcenas 05/05/24 follow up recommended in 2 months: 07/05/24 TBD. #[phone] - Vascular Dr. Zambrano 05/01/24 - follow up recommended in 6 months: 11/11/24 TBD #[phone]. - MTM if covered by insurance TBD [...] clinic with 24/ after hours services available. Continuous Improvement Specialist will remain available as needed. documented as of this encounter Visit Diagnoses Not on filedocumented in this encounter Additional Health Concerns Active Problems Noted Date Diagnosed Date Increased risk of re-admission 02/18/2024 Assessment Noted Time PHQ-9 Depression Total Score: 5 03/17/20 24 9:45 AM CDT documented as of this encounter Care Teams Promotions Specialist Relationship Specialty Start Date End Date Winston Villatoro OD [facility] [address] [facility] [address] [place] [address] PCP - Ophthalmology Ophthalmology 02/11/13 Denise Woodson Ra, APRN TOBACCO FEEDER CATCHER [address] [place] [address] PCP - General Family Practice 09/21/20 Denise Woodson Ra, APRN TOBACCO FEEDER CATCHER [address] [place] [address] Assigned PCP 07/17/20 Usha Simon APRN TOBACCO FEEDER CATCHER 909 [facility]2121[place], [place] [address] Nurse Practitioner Neurological Surgery 01/24/24 Dangelo Salinas MD [address] [facility] [address] [place], [place] [phone] Neurology 01/27/24 Anastasia Stearns, RN Lead Continuous Improvement Specialist 02/06/24 Germaine Lopez, W Community Health Worker Primary Care - CC 02/18/24 Lisa Zambrano MD [address] [place] [address] Assigned Heart and Vascular Provider 05/08/24 Raul Hoyos MD 909 [facility]2121[place], [place] [address] Assigned Neuroscience Provider 05/08/24 documented as of this encounter
--- OUTSIDE RECORDS SUMMARY | 2024-05-14 11:57 | XMS_ITS | Encounter Summary ---
Author Organization [place] Address [address] [place] [address]. [place] [address] Care Team Providers Care Direct Care Supervisor Name Role Phone Winston Villatoro OD Unavailable [phone] Denise Woodson Ra, APRN MANAGER DATA WAREHOUSE Unavailable Denise Woodson Ra PRODUCTION COST ESTIMATOR MANAGER DATA WAREHOUSE Primary Care Provid er Usha Simon APRN MANAGER DATA WAREHOUSE Unavailable [phone] Dangelo Salinas MD Unavailable Anastasia Stearns RN Unavailable [phone] Germaine Lopez CHW Unavailable Lisa Zambrano MD Unavailable [phone] Raul Hoyos MD Unavailable [phone] Encounter Details Date Type Department Care Team (Late st Contact Info) Description 05/12/2024 [facility] [address] [place] [address] Denise Woodson Ra, APRN MANAGER DATA WAREHOUSE [address] [place] [address] Social History Tobacco Use Types [...] How often do you attend baptist or baptism serv ices? Never 02/28/2024 Do you belong [...] Answer Date Recorded PHQ-2 Score 2 05/05/2024 [facility] - Occupational Stress Questionnaire [...] encounter Miscellaneous Notes * Telephone Encounter - Donald Newman - 05/12/2024 4:28 PM CDT Forms/Letter Request Type of form/letter: OTHER: FORMS from ([employer]) Do we have the form/letter: Yes: In the Dr's in basket at front office help Who is the form from? [employer] Where did/will the form come from? form was faxed in When is form/letter needed by: FIFI How would you like the form/letter returned: Patient Notified form requests are processed in 5-7 business days:No Could we send this information [facility] you [facility] or would you prefer to receive a phone call?: No preference Okay to leave a detailed message?: No at Other phone number: FAX: [phone] documented in this encounter Plan of Treatment Upcoming Encounters Date Type Department Care Team (Late st Contact Info) Description 05/26/2024 8:30 AM CDT [facility] [address] [place] [phone] Denise Woodson Ra, PRODUCTION COST ESTIMATOR MANAGER DATA WAREHOUSE [address] [place] [address] [place], [place] [address] 06/08/2024 8:30 AM CDT Office Visit [facility] [address] [place] [phone] Denise Woodson Ra, PRODUCTION COST ESTIMATOR MANAGER DATA WAREHOUSE [address] [facility] [place], [place] [address] documented as of this encounter Goals Goal [...] Mental Health weekly - PT, OT and DIGITAL CAMPAIGN MANAGER - PCP appointment 05/26/24 & 06/08/24 - Stroke Neurology Dr. Hoyos 04/14/24 #[phone] - Epilepsy Neurology Dr. Barcenas 05/05/24 follow up recommended in 2 months: 07/05/24 TBD. #[phone] - Vascular Dr. Zambrano 05/01/24 - follow up recommended in 6 months: 11/11/24 TBD #[phone]. - MTM if covered by insurance TBD [...] clinic with 24/ after hours services available. Pot Puncher will remain available as needed. documented as of this encounter Visit Diagnoses Not on filedocumented in this encounter Additional Health Concerns Active Problems Noted Date Diagnosed Date Increased risk of re-admission 02/18/2024 Assessment Noted Time PHQ-9 Depression Total Score: 5 03/17/20 24 9:45 AM CDT documented as of this encounter Care Teams Direct Care Supervisor Relationship Specialty Start Date End Date ShaunaWinston OD [facility] [address] [facility] [address] [place] [address] PCP - Ophthalmology Ophthalmology 02/11/13 Denise Woodson Ra, APRN MANAGER DATA WAREHOUSE [address] [place] [address] PCP - General Family Practice 09/21/20 Denise Woodson Ra, APRN MANAGER DATA WAREHOUSE [address] [facility] [place] [address] Assigned PCP 07/17/20 Usha Simon APRN MANAGER DATA WAREHOUSE 909 [facility]121[place], [place] [address] Nurse Practitioner Neurological Surgery 01/24/24 Dangelo Salinas MD [address] [place] [address] Neurology 01/27/24 Anastasia Stearns, RN Lead Pot Puncher 02/06/24 Germaine Lopez, CHW Community Health Worker Primary Care - CC 02/18/24 Lisa Zambrano MD 6405 [facility] [address] [place] [address] [place] [address] Assigned Heart and Vascular Provider 05/08/24 Raul Hoyos MD 909 [facility]2121[place], [place] [address] Assigned Neuroscience Provider 05/08/24 documented as of this encounter
--- OUTSIDE RECORDS SUMMARY | 2024-05-14 11:57 | XMS_ITS | Encounter Summary ---
Author Organization [facility] Address [address] [place] [address] Care Team Providers Care Autocad Name Role Phone ShaunaWinston OD Unavailable [phone] Denise Woodson Ra, APRN SPECIAL NEEDS CAREGIVER Unavailable + [phone] Denise Woodson Ra, APRN SPECIAL NEEDS CAREGIVER Primary Care Provid er Usha Simon APRN SPECIAL NEEDS CAREGIVER Unavailable [phone] Dangelo Salinas MD Unavailable Anastasia Stearns RN Unavailable [phone] Germaine Lopez CHW Unavailable [phone] Lisa Zambrano MD Unavailable [phone]- [phone] Raul Hoyos MD Unavailable [phone] Encounter Details Date Type Department Care Team (Latest Contact Info) Description 05/10/2024 Travel Social History Tobacco Use Types Packs/Day [...] How often do you attend mu-ism or advent serv ices? Never 02/28/2024 Do you belong [...] Answer Date Recorded PHQ-2 Score 2 05/05/2024 [facility] of Occupat ional Health - Occupational Stress [...] Description 05/26/2024 8:30 AM CDT Office Visit [facility] [address] [place] [phone] Denise Woodson Ra, APRN SPECIAL NEEDS CAREGIVER [address] [place] [address] 06/08/2024 8:30 AM CDT [facility] [address] [place] [phone] Denise Woodson Ra, BARRERA SPECIAL NEEDS CAREGIVER [address] [place] [address] documented as of this encounter Goals Goal [...] Health weekly - PT, OT and SITE SUPERVISOR - PCP appointment 05/26/24 & 06/08/24 - Stroke Neurology Dr. Hoyos 04/14/24 #[phone] - Epilepsy Neurology Dr. Barcenas 05/05/24 follow up recommended in 2 months: 07/05/24 TBD. #[phone] - Vascular Dr. Zambrano 05/01/24 - follow up recommended in 6 months: 11/11/24 TBD #[phone]. - MTM if covered by insurance TBD [...] clinic with 08/04 after hours services available. Shuttle Threader will remain available as needed. documented as of this encounter Visit Diagnoses Not on filedocumented in this encounter Additional Health Concerns Active Problems Noted Date Diagnosed Date Increased risk of re-admission 02/18/2024 Assessment Noted Time PHQ-9 Depression Total Score: 5 03/17/20 9:45 AM CDT documented as of this encounter Care Teams Autocad Relationship Specialty Start Date End Date Winston Villatoro OD [facility] [address] [place] [address] PCP - Ophthalmology Ophthalmology 02/11/13 Denise Woodson Ra, APRN SPECIAL NEEDS CAREGIVER [address] [address] PCP - General Family Practice 09/21/20 Denise Woodson Ra, APRN SPECIAL NEEDS CAREGIVER [address] [address] Assigned PCP 07/17/20 Usha Simon APRN CNP [address] [address] Nurse Practitioner Neurological Surgery 01/24/24 Dangelo Salinas MD [address] [place] [address] Neurology 01/27/24 Anastasia Stearns, RN Lead Shuttle Threader 02/06/24 Germaine Lopez, W Community Health Worker Primary Care - CC 02/18/24 Lisa Zambrano MD [address] [place] [address] Assigned Heart and Vascular Provider 05/08/24 Raul Hoyos MD [address] [address] Assigned Neuroscience Provider 05/08/24 documented as of this encounter
--- OUTSIDE RECORDS SUMMARY | 2024-05-14 11:57 | XMS_ITS | Encounter Summary ---
Author Organization [facility] Address [address] [place] [address]. [place] [address] Care Team Providers Care Metal Buggy Operator Name Role Phone Winston Villatoro OD Unavailable [phone] Denise Woodson Ra, APRN INCINERATOR PLANT LABORER Unavailable Denise Woodson Ra, APRN INCINERATOR PLANT LABORER Primary Care Provid er Usha Simon APRN INCINERATOR PLANT LABORER Unavailable [phone] Dangelo Salinas MD Unavailable Anastasia Stearns RN Unavailable [phone] Germaine Lopez CHW Unavailable Lisa Zambrano MD Unavailable [phone] Raul Hoyos MD Unavailable Reason for Visit * Reason Onset Date Comments Forms 05/12/2024 [employer] - Disability Insurance Encounter Details Date Type Department Care Team (Late st Contact Info) Description 05/12/2024 [facility] Medical Advice [employer] [address] [place] [address] Denise Woodson Ra, APRN INCINERATOR PLANT LABORER [address] [place] [address] Forms ([employer] - Disabi... Social History Tobacco Use Types Packs/Day Years [...] Never 02/28/2024 How often do you attend jewish or oriental orthodox serv ices? Never 02/28/2024 Do you belong to any clubs o r organizations such as jewish groups, unions, fraternal or athletic groups, or [...] Answer Date Recorded PHQ-2 Score 2 05/05/2024 [facility]ational Stress Questionnaire [...] - Denise Woodson Ra, APRN CNP - 05/14/2024 10:55 AM CDT What should the start date be for when she is completely unable to work? I need to write it in on the forms. CHIKIS * Telephone Encounter - Anastasia Abad - 05/13/2024 3:20 PM CDT Forms/Letter Request Type of form/letter: Disability Do we have the form/letter: Yes: Disability Insurance Who is the form from? [employer] Where did/will the form come from? form was sent via [employer] When is form/letter needed by: FIFI How would you like the form/letter returned: Campus Police Officer Patient Notified form requests are processed in 5-7 business days:Yes Could we send this information to you in [employer] or would you prefer to receive a phone call?: Patient would prefer a phone call Okay to leave a detailed message?: Yes at Cell number on file: Telephone Information: * Telephone Encounter - Qing Copeland - 05/12/2024 5:09 PM CDT Received form. Placed in provider's basket for review and signature. Qing Copeland Lead Nutrition Program Instructor [facility] Phoebe Velasquez * Telephone Encounter - Qing Copeland - 05/12/2024 2:10 PM CDT Routing to provider as FYI. Will update when form is received. Qing Copeland Lead Nutrition Program Instructor [facility] Phoebe Velasquez documented in this encounter Plan of Treatment Upcoming Encounters Date Type Department Care Team (Late st Contact Info) Description 05/26/2024 8:30 AM CDT [facility] [address] [place] [phone] Denise Woodson Ra, BARRERA INCINERATOR PLANT LABORER [address] [place] [address] 06/08/2024 8:30 AM CDT Office Visit [facility] [address] [place] [phone] Denise Woodson Ra, APRN INCINERATOR PLANT LABORER [address] [place] [id number] documented as of this encounter Goals Goal [...] Mental Health weekly - PT, OT and UNMANNED EQUIPMENT OPERATOR - PCP appointment 05/26/24 & 06/08/24 - Stroke Neurology Dr. Hoyos 04/14/24 #[phone] - Epilepsy Neurology Dr. Barcenas 05/05/24 follow up recommended in 2 months: 07/05/24 TBD. #[phone] - Vascular Dr. Zambrano 05/01/24 - follow up recommended in 6 months: 11/11/24 TBD #[phone]. - MTM if covered by insurance TBD [...] clinic with 24/7 after hours services available. Early Interventionist will remain available as needed. documented as of this encounter Visit Diagnoses Not on filedocumented in this encounter Additional Health Concerns Active Problems Noted Date Diagnosed Date Increased risk of re-admission 02/18/2024 Assessment Noted Time PHQ-9 Depression Total Score: 5 03/17/20 9:45 AM CDT documented as of this encounter Care Teams Metal Buggy Operator Relationship Specialty Start Date End Date Winston Villatoro OD [facility] [place] [address] [place] [address] PCP - Ophthalmology Ophthalmology 02/11/13 Denise Woodson Ra, PERSONAL FITNESS MANAGER INCINERATOR PLANT LABORER [address] [place] [address] PCP - General Family Practice 09/21/20 Denise Woodson Ra, APRN INCINERATOR PLANT LABORER [address] [place] [address] Assigned PCP 07/17/20 Usha Simon APRN INCINERATOR PLANT LABORER [address] [facility] [place] [address] Nurse Practitioner Neurological Surgery 01/24/24 Dangelo Salinas MD [address] [place] [address] Neurology 01/27/24 Anastasia Stearns, RN Lead Early Interventionist 02/06/24 Germaine Lopez, W Community Health Worker Primary Care - CC 02/18/24 Lisa Zambrano MD [address] [place] [address] Assigned Heart and Vascular Provider 05/08/24 Raul Hoyos MD [address] [facility] [place] [address] Assigned Neuroscience Provider 05/08/24 documented as of this encounter
--- OUTSIDE RECORDS SUMMARY | 2024-05-14 11:57 | XMS_ITS | Encounter Summary ---
Author Organization [facility] Address [address] [place] [address]. [place] [address] Care Team Providers Care Filter Changing Technician Name Role Phone ShaunaWinston OD Unavailable Denise Woodson Ra, APRN MEDIA SPECIALIST Unavailable + [phone] Denise Woodson Ra INSPECTOR PURCHASED [employer]S MEDIA SPECIALIST Primary Care Provid er Usha Simon INSPECTOR PURCHASED [employer]S MEDIA SPECIALIST Unavailable [phone] Dangelo Salinas MD Unavailable Anastasia Stearns RN Unavailable Germaine Lopez CHW Unavailable [phone] Lisa Zambrano MD Unavailable [phone] Raul Hooys MD Unavailable Reason for Visit * Reason Comments Headache Dizziness Balance/ Vestibular Neurologic Problem Encounter Details Date Type Department Care Team (Late st Contact Info) Description 05/10/2024 10:48 AM CDT - 05/11/2024 12:03 AM CDT Emergency [facility] Emergency Department [address] [place] [id number] Todd Osborn MD [address] [place] [id number] Felicita Rae MD [address] [place] [id number] Intractable headache, unspecified chronicity pattern, unspecified headache [...] Never 02/28/2024 How often do you attend yazidi or mandaeism serv ices? Never 02/28/2024 Do [...] Answer Date Recorded PHQ-2 Score 2 05/05/2024 [facility] - Occupational Stress [...] Sign Reading Time Taken Comments Blood Pressure 145/96 05/10/2024 1:21 PM CDT Pulse 105 05/10/2024 6:30 PM CDT Temperature 36.8 ??C (98.2 ??F) 05/10/2024 10:55 AM C DT Respiratory Rate 16 05/10/2024 10:55 AM CDT Oxygen Saturation 100% 05/10/2024 4:51 PM CDT Inhaled Oxygen Concentration - - Weight 97.5 kg (215 lb) 05/10/2024 10:55 AM CDT Height 172.7 cm (5' 8) 05/10/2024 10:55 AM CDT Body Mass Index 32.69 05/10/2024 10:55 AM CDT documented in this encounter Discharge Instructions * Discharge Instructions* Felicita Rae MD - 05/10/2024 10:10 PM CDT TODAY'S VISIT: You were seen today for dizziness, headache - - If you had any labs or imaging/radiology tests performed today, you should also discuss these tests with your usual provider. FOLLOW-UP: Please make an appointment to follow up with: - Your Primary Care Provider. If you do not have a PCP, please call the Primary Care Center (phone: for an appointment - your neurology team - Have your provider review the results from today's visit with you again to make sure no further follow-up or additional testing is needed based on those results. RETURN TO THE EMERGENCY DEPARTMENT Return to the Emergency Department at any time for any new or worsening symptoms or any concerns. * Attachments The following attachments cannot be sent through Care Everywhere. * Dizziness (Irish) documented in this encounter Medications at Time of Discharge Medication Sig Dispensed Refills Start Date End Date acetaminophen (TYLENOL) 500 MG tabletIndications:Fibro myalgia,Pain of right upper extremity Take 1-2 tablets [...] 3 07/13/2020 aspirin (ASA) 325 MG EC tabletIndications:Cereb rovascular accident (CVA), unspecified mechanism (H) Take 1 tablet (325 mg) by mouth daily 30 tablet 02/14/2024 BREO ELLIPTA 200-25 MCG/INH InhalerIndications:Mode rate persistent asthma without complication INHALE 1 PUFF INTO THE LUNGS DAILY 3 each 1 02/22/2022 cetirizine (ZYRTEC) 10 MG tablet Take 10 mg by mouth daily levETIRAcetam (KEPPRA) 750 MG tabletIndications:Histo ry of seizure TAKE 1 TABLET BY MOUTH TWICE A DAY 56 tablet 04/01/2024 Lidocaine (LIDOCARE) 4 % PatchIndications:Fibrom yalgia,Pain of right upper extremity Place 1 patch onto the skin every 24 hours To prevent lidocaine toxicity, patient should be patch free for 12 hrs daily. 01/22/2024 LORazepam (ATIVAN) 1 MG tabletIndications:Histo ry of seizure Take 1/2-1 tablet daily as needed for onset of dizziness. 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 (H) Take 1 tablet (150 mg) by mouth at bedtime 30 tablet 5 05/05/2024 psyllium (METAMUCIL) 28.3 % packet Take 1 packet by mouth daily rosuvastatin (CRESTOR) 20 MG tabletIndications:Cereb rovascular accident (CVA), unspecified mechanism (H) TAKE 1 TABLET (20 MG) BY MOUTH AT BEDTIME 90 tablet 03/06/2024 senna-docusate (SENOKOT-S/PERICOLACE) 8.6-50 MG tabletIndications:Other constipation Take 2 tablets by mouth 2 times daily as needed for constipation 01/22/2024 traZODone (DESYREL) 50 MG tabletIndications:Insom elena, unspecified type Take 2 tablets (100 mg) by mouth At Bedtime 180 tablet 3 07/27/2021 vitamin B complex with vitamin C (VITAMIN B COMPLEX) tablet Take 1 tablet by mouth daily documented as of this encounter Consult Notes * Delisa Borges DO - 05/10/2024 5:00 PM CDTAssociated Order(s): NEUROLOGY STROKE ADULT IP CONSULT Images from the original note were not included. 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 She went to the hospital in [place] at this point where she received an MRI that showed no acute intracranial abnormalities (was unable to locate these results in record, patient showed a result of imaging on her phone). The pain in the head is aburning and tingling that does not improve with tylenol or laying down. It felt better on Saturday morning in the [place] in the hospital, so she was discharged but later at home that day, it got much worse. It gets worse as she is more active throughout the day. It starts at the center of the back of her head and radiates to the L shoulder. The pain is a 10/10 at its worst. It sometimes is accompanied by tingling down the R side of her body. Her face also feels numb when she feels this pressure acutely. Her walking was getting better after her stroke in December, but since has returned to how it felt at that time where it was difficult to remain balanced. Patient was recently prescribed oxcarbazepine for seizure to replace keppra as she has anxiety and depression, but she has not started taking this yet. Stroke Evaluation Summarized MRI/Head CT Pending Intracranial Vasculature Head CTA demonstrates no aneurysm or stenosis of the major intracranial arteries. Cervical Vasculature Neck CTA demonstrates no stenosis of the major cervical arteries Echocardiogram N/a EKG/Telemetry Sinus rhythm with possible left atrial enlargement Other Testing Not Applicable LDL No lab value available in past 30 days A1C No lab value available in past 90 days Troponin 05/10/2024: <6 ng/L Impression #Headhache #Dizziness Patient with central posterior YANG with accompanying gait abnormalities and dizziness has a PMH of CVA, Seizures, left sigmoid AVF, ASD, and lizy danlos. Her only stroke previously in December of 2023 was post-procedural after a cerebral angiogram as was her seizure (single GTC). She has hx of HLD, but no hx diabetes or HTN. CTA demonstrated no aneurysm or stenosis and CT with no acute intracranialpathology. She is already taking ASA 162mg and rosuvastatin 20mg every day. Unlikely that this is new stroke as previous stroke was luis procedural and she has few risk factors. It is possible that this could be recrudescence of prior stroke. Plan to obtain MRI to assess for further intracranial pathology. Recommendations - Permissive HTN; goal SBP < 220 mmHg - Daily aspirin 81 mg for secondary stroke prevention - Statin: rosuvastain 20mg - MRI Brain with and without contrast - Telemetry, EKG - Bedside Glucose Monitoring - Stroke Education - Euthermia, Euglycemia Patient Follow-up - final recommendation pending work-up Thank you for this consult. We will continue to follow. The patient was discussed with Stroke Staff is Dr. Tracy. Delisa Borges DO Neurology Resident Clinically Significant Risk Factors Present on Admission # Drug Induced Platelet Defect: home medication list includes an antiplatelet medication # Obesity: Estimated body mass index is 32.69 kg/m?? as calculated from the following: Height as of this encounter: 1.727 m (5' 8). Weight as of this encounter: 97.5 kg (215 lb). 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 Authorizing Provider acetaminophen (TYLENOL) 500 MG tablet Take 1-2 tablets (500-1,000 mg) by mouth 3 times daily as needed for mild pain or headaches 01/24/24 Danya You PA albuterol (PROAIR HFA/PROVENTIL HFA/VENTOLIN HFA) 108 (90 Base) MCG/ACT inhaler Inhale 2 puffs intothe lungs every 4 hours as needed for shortness of breath / dyspnea or wheezing 07/13/20 Denise Woodson Ra, APRN CNP aspirin (ASA) 325 MG EC tablet Take 1 tablet (325 mg) by mouth daily Patient taking differently: Take 162 mg by mouth daily 02/14/24 Denise Woodson Ra, APRN CNP BREO ELLIPTA 200-25 MCG/INH Inhaler INHALE 1 PUFF INTO THE LUNGS DAILY 02/22/22 Denise Woodson Ra, APRN CNP cetirizine (ZYRTEC) 10 MG tablet Take 10 mg by mouth daily Unknown, Entered By History levETIRAcetam (KEPPRA) 750 MG tablet TAKE 1 TABLET BY MOUTH TWICE A DAY Patient taking differently: Take 325 mg by mouth 2 times daily 04/01/24 Denise Woodson Ra, APRN CNP Lidocaine (LIDOCARE) 4 % Patch Place 1 patch onto the skin every 24 hours To prevent lidocaine toxicity, patient should be patch free for 12 hrs daily. 01/22/24 Delisa Manuel MD LORazepam (ATIVAN) 1 MG tablet Take 1/2-1 tablet daily as needed for onset of dizziness. 03/17/24 Denise Woodson Ra, APRN CNP magnesium oxide 200 MG TABS Ok to take magnesium supplement of your preference 01/24/24 Danya You PA meclizine (ANTIVERT) 25 MG tablet Take 1 tablet (25 mg) by mouth 3 times daily as needed for dizziness Patient not taking: Reported on 05/05/2024 02/13/24 Dangelo Sylvester, methyl salicylate-menthol (ICY HOT) ointment Apply topically every 6 hours as needed (pain) 01/22/24 Delisa Manule MD OXcarbazepine (TRILEPTAL) 150 MG tablet Take 1 tablet (150 mg) by mouth at bedtime 05/05/24 Rohit Barcenas MD psyllium (METAMUCIL) 28.3 % packet Take 1 packet by mouth daily Unknown, Entered By History rosuvastatin (CRESTOR) 20 MG tablet TAKE 1 TABLET (20 MG) BY MOUTH AT BEDTIME Patient not taking: Reported on 05/01/2024 03/06/24 Denise Woodson Ra, APRN CNP senna-docusate (SENOKOT-S/PERICOLACE) 8.6-50 MG tablet Take 2 tablets by mouth 2 times daily as needed for constipation Patient not taking: Reported on 02/06/2024 01/22/24 Delisa Manuel MD traZODone (DESYREL) 50 MG tablet Take 2 tablets (100 mg) by mouth At Bedtime 07/27/21 Denise Woodson Ra, APRN CNP vitamin B complex with vitamin C (VITAMIN B COMPLEX) tablet Take 1 tablet by mouth daily Reported, Patient Scheduled Meds Current Facility-Administered Medications Medication Dose Route Frequency Provider Last Rate Last Admin Infusion Meds Current Facility-Administered Medications Medication Dose Route Frequency Provider Last Rate Last Admin Allergies Allergies Allergen Reactions Codeine GI Disturbance Other Reaction(s): epigastric pain Mold Dizziness and GI Disturbance Bupropion GI Disturbance and Other (See Comments) Diarrhea and stomach ache Erythromycin GI Disturbance PHYSICAL EXAMINATION Temp: [98.2 ??F (36.8 ??C)] 98.2 ??F (36.8 ??C) Pulse: [64-105] 105 Resp: [16] 16 BP: (138-145)/(93-96) 145/96 SpO2: [96 %-100 %] 100 % General Exam General: patient lying in bed without any acute distress HEENT: normocephalic/atraumatic Cardio: RRR Pulmonary: no respiratory distress Abdomen: soft, non-tender, non-distended Extremities: no edema Skin: intact, warm/dry Neuro Exam Mental Status: alert, oriented x 3, follows commands, speech clear and fluent, naming and repetition normal Cranial Nerves: visual thomas intact, PERRL, EOMI with normal smooth pursuit, facial movements symmetric, hearing not formally tested but intact to conversation, palate elevation symmetric and uvula midline, no dysarthria, shoulder shrug strong bilaterally, tongue protrusion midline, facial sensation on the R is duller than on the L, though feels in V1/2/3 b/l Motor: normal muscle tone and bulk, no abnormal movements, able to move all limbs spontaneously, nopronator drift, R UE 4/5 weakness and drift, all other extremities at 5/5. Reflexes: no clonus Sensory: light touch sensation intact and symmetric throughout upper and lower extremities, no extinction on double simultaneous stimulation Coordination: normal [id number] and hnrl-dr-yomq bilaterally without dysmetria Station/Gait: deferred Stroke Scales NIHSS 1a. Level of Consciousness 0-->Alert, keenly responsive 1b. LOC Questions 0-->Answers both questions correctly 1c. LOC Commands 0-->Performs both tasks correctly 2. Best Gaze 0-->Normal 3. Visual 0-->No visual loss 4. Facial Palsy 0-->Normal symmetrical movements 5a. Motor Arm, Left 0-->No drift, limb holds 90 (or 45) degrees for full 10 secs 5b. Motor Arm, Right 1-->Drift, limb holds 90 (or 45) degrees, but drifts down before full 10 secs, does not hit bed or other support 6a. Motor Leg, Left 0-->No drift, leg holds 30 degree position for full 5 secs 6b. Motor Leg, right 0-->No drift, leg holds 30 degree position for full 5 secs 7. Limb Ataxia 0-->Absent 8. Sensory 0-->Normal, no sensory loss 9. Best Language 0-->No aphasia, normal 10. Dysarthria 0-->Normal 11. Extinction and Inattention 0-->No abnormality Total 1 (05/10/24 193) Imaging I personally reviewed all imaging; relevant findings per HPI. Labs Data CBC Recent Labs Lab 05/10/24 1434 WBC 8.5 RBC 4.80 HGB 14.7 HCT 43.9 PLT 185 Basic Metabolic Panel Recent Labs Lab 05/10/24 1434 05/10/24 1433 NA 140 -- POTASSIUM 4.1 -- CHLORIDE 104 -- CO2 25 -- BUN 13.4 -- CR 0.78 -- GLC 85 78 TIFF 9.8 -- Liver Panel No results for input(s): PROTTOTAL, ALBUMIN, BILITOTAL, ALKPHOS, AST, ALT, BILIDIRECTin the last 168 hours. INR Recent Labs Lab Test 05/10/24 1434 02/13/24 1216 02/04/24 1349 INR 0.92 0.94 0.90 Associated attestation - Sameer Tracy MD - 05/11/2024 2:36 AM CDT Vascular Neurology Faculty Attestation I agree with the note below. Impression: Gait abnormality and YANG in a patient with periprocedural stroke following DSA in December 2023 at an OSH. Recommendations: 1. MRI Brain w/wo 2. Toxic/metabolic/infectious work-up for possible recrudescence of prior symptoms 3. PT/OT/Speech as indicated Sameer Tracy MD, MS Vascular Neurology documented in this encounter ED Notes * Felicita Rae MD - 05/10/2024 5:14 PM CDT Emergency Department Patient Sign-out Brief HPI: This is a 48 year old female signed out to me by Dr. Osborn . See initial ED Provider note for details of the presentation. 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 Now with posterior YANG and dizziness/nausea since . Also with difficulty ambulating. Was seen at [place] recently and had tele stroke consult. Discharged Saturday after being observed overnight. They felt this was d/t migraine. Follows with neurosurgery also. Pt awaiting evaluation by neurology. Disposition pending recommendations. CTs negative. Exam: Patient Vitals for the past 24 hrs: BP Temp Temp src Pulse Resp SpO2 Height Weight 05/10/24 1639 -- -- -- 76 -- 97 % -- -- 05/10/24 1609 -- -- -- 67 -- 100 % -- -- 05/10/24 1509 -- -- -- 64 -- 97 % -- -- 05/10/24 1439 -- -- -- 71 -- 98 % -- -- 05/10/24 1430 -- -- -- 76 -- 99 % -- -- 05/10/24 1415 -- -- -- 65 -- 99 % -- -- 05/10/24 1400 -- -- -- 73 -- 96 % -- -- 05/10/24 1345 -- -- -- 70 -- 99 % -- -- 05/10/24 1330 -- -- -- -- -- 99 % -- -- 05/10/24 1321 (!) 145/96 -- -- 85 -- 98 % -- -- 05/10/24 1315 (!) 145/96 -- -- -- -- -- -- -- 05/10/24 1055 (!) 138/93 98.2 ??F (36.8 ??C) Oral 81 16 98 % 1.727 m (5' 8) 97.5 kg (215 lb) ED RESULTS: Results for orders placed or performed during the hospital encounter of 05/10/24 (from the past 24 hour(s)) EKG 12-lead, tracing only Status: None Collection Time: 05/10/24 11:25 AM Result Value Ref Range Systolic Blood Pressure mmHg Diastolic Blood Pressure mmHg Ventricular Rate 66 BPM Atrial Rate 66 BPM AL Interval 162 ms QRS Duration 84 ms QT 378 ms QTc 396 ms P [place] 67 degrees R AXIS 84 degrees T [place] 34 degrees Interpretation ECG Sinus rhythm Possible Left atrial enlargement Borderline ECG Unconfirmed report - interpretation of this ECG is computer generated - see medical record for final interpretation Confirmed by - EMERGENCY ROOM, PHYSICIAN ([id number]), sound editor MAILE STEINER ([id number]) on 05/10/2024 11:53:46 AM Glucose by meter Status: Normal Collection Time: 05/10/24 2:33 PM Result Value Ref Range GLUCOSE BY METER POCT 78 70 - 99 mg/dL CBC with Platelets & Differential Status: None Collection Time: 05/10/24 2:34 PM Narrative The following orders were created for panel order CBC with Platelets & Differential. Procedure Abnormality Status --------- ------ CBC with platelets and d...[[id number]] Final result Please view results for these tests on the individual orders. Basic metabolic panel Status: Normal Collection Time: 05/10/24 2:34 PM Result Value Ref Range Sodium 140 135 - 145 mmol/L Potassium 4.1 3.4 - 5.3 mmol/L Chloride 104 98 - 107 mmol/L Carbon Dioxide (CO2) 25 22 - 29 mmol/L Anion Gap 11 7 - 15 mmol/L Urea Nitrogen 13.4 6.0 - 20.0 mg/dL Creatinine 0.78 0.51 - 0.95 mg/dL GFR Estimate >90 >60 mL/min/1.73m2 Calcium 9.8 8.8 - 10.4 mg/dL Glucose 85 70 - 99 mg/dL INR Status: Normal Collection Time: 05/10/24 2:34 PM Result Value Ref Range INR 0.92 0.85 - 1.15 Partial thromboplastin time Status: Normal Collection Time: 05/10/24 2:34 PM Result Value Ref Range aPTT 25 22 - 38 Seconds Troponin T, High Sensitivity Status: Normal Collection Time: 05/10/24 2:34 PM Result Value Ref Range Troponin T, High Sensitivity <6 <=14 ng/L CBC with platelets and differential Status: None Collection Time: 05/10/24 2:34 PM Result Value Ref Range WBC Count 8.5 4.0 - 11.0 10e3/uL RBC Count 4.80 3.80 - 5.20 10e6/uL Hemoglobin 14.7 11.7 - 15.7 g/dL Hematocrit 43.9 35.0 - 47.0 % MCV 92 78 - 100 fL MCH 30.6 26.5 - 33.0 pg MCHC 33.5 31.5 - 36.5 g/dL RDW 11.9 10.0 - 15.0 % Platelet Count 185 150 - 450 10e3/uL % Neutrophils 60 % % Lymphocytes 28 % % Monocytes 6 % % Eosinophils 5 % % Basophils 1 % % Immature Granulocytes 0 % NRBCs per 100 WBC 0 <1 /100 Absolute Neutrophils 5.2 1.6 - 8.3 10e3/uL Absolute Lymphocytes 2.3 0.8 - 5.3 10e3/uL Absolute Monocytes 0.5 0.0 - 1.3 10e3/uL Absolute Eosinophils 0.4 0.0 - 0.7 10e3/uL Absolute Basophils 0.0 0.0 - 0.2 10e3/uL Absolute Immature Granulocytes 0.0 <=0.4 10e3/uL Absolute NRBCs 0.0 10e3/uL CT Head w/o Contrast Status: None Collection Time: 05/10/24 3:39 PM Narrative EXAM: CT HEAD W/O CONTRAST 05/10/2024 3:39 PM HISTORY: Concern for stroke. COMPARISON: CT 02/13/2024, 02/04/2024. MRI 02/13/2024. TECHNIQUE: Using multidetector thin collimation helical acquisition technique, axial, coronal and sagittal CT images from the skull base to the vertex were obtained without intravenous contrast. Engine Manager (topogram) image(s) also obtained and reviewed. [...] agree with the findings. MAE NIETO MD CTA Head Neck with Contrast Status: None Collection Time: 05/10/24 3:43 PM Narrative EXAM: CTA HEAD NECK W CONTRAST 05/10/2024 [...] of the upper aortic arch through the [place]. This CT angiogram data was [...] 1.2 cm. No significant spinal canal stenosis. Impression IMPRESSION: 1. Head CTA demonstrates no aneurysm or stenosis of the major intracranial arteries. 2. Neck CTA demonstrates no stenosis of the major cervical arteries. I have personally reviewed the examination and initial interpretation and I agree with the findings. MAE NIETO MD ED MEDICATIONS: Medications iopamidol (ISOVUE-370) solution 67 mL (67 mLs Intravenous $Given 05/10/24 1526) sodium chloride (PF) 0.9% PF flush 90 mL (90 mLs Intravenous $Given 05/10/24 1525) acetaminophen (TYLENOL) tablet 1,000 mg (1,000 mg Oral $Given 05/10/24 1638) Impression: ICD-10-CM 1. Intractable headache, unspecified chronicity pattern, unspecified headache type R51.9 2. Dizziness R42 Plan: Pending neurology consultation. Patient was discussed with neurology, they have seen the patient to the emergency department and recommend Keppra level and MRI of the brain with and without contrast. If this is negative for stroke or other acute process, patient can likely be discharged home. MD Kyra Warren Michelle C, MD 05/10/241940 * Todd Osborn MD - 05/10/2024 10:56 AM CDT ED Provider Note [facility] History Chief Complaint Patient presents with Headache Dizziness Balance/ Vestibular Neurologic Problem HPI Alcon Zamora is a 48 year old female with a history of dural DJD of cervical spine, arteriovenous fistula, CVA (01/09/2024) with right sided deficits who presents to the emergency department with isabel Patten for headache, neck pain, and dizziness. Per chart review, presented for a planned catheter angiogram at [facility] for left sided pulsatile tinnitus on 01/09/24. She was found to have multiple acute ischemic infarcts of the frontallobes, parietal lobes and left supramarginal gyrus after procedure with associated right sided weakness and numbness, likely embolic in nature secondary to procedure complication, complicated by post-stroke seizures. Here in the ED, patient reports that since ,(05/07/2024) she has been experiencing worseningheadaches in the back of her head. She states she also is having difficulty walking and feels like when she does walk she leans to the left. Patient was undergoing PT and OT following her stroke in December and reports she was just recently cleared by PT 3 weeks ago and no longer showed any deficits. She was able to walk and drive normally and her short-term memory/cognition was improving. Of note, she reports that she did have persistent left-sided pulsatile tinnitus that went away in late February. Patient reports that she did go to [facility] on night (05/07/2024) and had an CT and MRI, which she reports were shown to be normal with no signs of a stroke. She was thought to have a migraine and was discharged with pain medication. She states that last night on Saturday (05/09/2024) she started feeling new soreness at the back of her neck which escalated to a 10 out of 10 on the pain scale in addition to her headache. She decided to go to sleep and when she woke up she felt better, but after going about her day the headache and neck pain came back. She does endorse nausea, but no vomiting or diarrhea. She denies fever MRI BRAIN WITHOUT CONTRAST (02/13/2024) 1. No acute intracranial pathology. 2. Several scattered nonspecific T2 hyperintense foci in cerebral white matter. Differentials include sequela of prior inflammatory/infectious or vascular insults. 3. Linear T1 and FLAIR hyperintensity with associated susceptibility in the inferior left parietal lobule, likely representing a DVA. 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 C SVP MONETIZATION PROCEDURE DATE: 2000 tubal ligation C SVP MONETIZATION PROCEDURE DATE: 1994 D&C CARDIAC SURGERY 06/2006 heart defect repair ESOPHAGOSCOPY, GASTROSCOPY, DUODENOSCOPY (EGD), COMBINED N/A 02/08/2021 Procedure: ESOPHAGOGASTRODUODENOSCOPY (EGD); Surgeon: Tuan Miller MD; Location: GI GI SURGERY 09/2020 gallbladder removed HC KNEE SCOPE,MED/LAT MENISECTOMY 08/04/13 LT HEART CATH, CLOSURE ATRIAL SEPTAL DEFECT 06/20/06 amplatzer septal occluder- serial #[id number] RW SVP MONETIZATION (ABSTRACTED) pneumonia several times SURGICAL PATHOLOGY EXAM 02/2012 excision of lipoma on chest wall ZZC VAGINAL HYSTERECTOMY 01/30/06 acetaminophen (TYLENOL) 500 MG tablet albuterol (PROAIR HFA/PROVENTIL HFA/VENTOLIN HFA) 108 (90 Base) MCG/ACT inhaler aspirin (ASA) 325 MG EC tablet BREO ELLIPTA 200-25 MCG/INH Inhaler cetirizine (ZYRTEC) 10 MG tablet levETIRAcetam (KEPPRA) 750 MG tablet Lidocaine (LIDOCARE) 4 % Patch LORazepam (ATIVAN) 1 MG tablet magnesium oxide 200 MG TABS meclizine (ANTIVERT) 25 MG tablet methyl salicylate-menthol (ICY HOT) ointment OXcarbazepine (TRILEPTAL) 150 MG tablet psyllium (METAMUCIL) 28.3 % packet rosuvastatin (CRESTOR) 20 MG tablet senna-docusate (SENOKOT-S/PERICOLACE) 8.6-50 MG tablet traZODone (DESYREL) 50 MG tablet vitamin B complex with vitamin C (VITAMIN B COMPLEX) tablet Allergies Allergen Reactions Codeine GI Disturbance [...] Social History Tobacco Use Smoking status: Never Passive exposure: Never Smokeless tobacco: Never Vaping Use Vaping status: Never Used Substance Use Topics Alcohol use: Not Currently Comment: minimal Drug use: No Past medical history, past surgical history, medications, allergies, family history, and social history were reviewed with the patient. No additional pertinent items. A medically appropriate review of systems was performed with pertinent positives and negatives noted in the HPI, and all other systems negative. Physical Exam BP: (!) 138/93 Pulse: 81 Temp: 98.2 ??F (36.8 ??C) Resp: 16 Height: 172.7 cm (5' 8) Weight: 97.5 kg (215 lb) SpO2: 98 % Physical Exam Vitals and nursing note reviewed. Constitutional: General: She is not in acute distress. Appearance: She is not ill-appearing, toxic-appearing or diaphoretic. HENT: Head: Normocephalic and atraumatic. Nose: Nose normal. Mouth/Throat: Mouth: Mucous membranes are moist. Eyes: Extraocular Movements: Extraocular movements intact. Conjunctiva/sclera: Conjunctivae normal. Pupils: Pupils are equal, round, and reactive to light. Neck: Vascular: No carotid bruit. Comments: There is no meningismus. Cardiovascular: Rate and Rhythm: Normal rate. Heart sounds: Normal heart sounds. Pulmonary: Effort: Pulmonary effort is normal. No respiratory distress. Breath sounds: Normal breath sounds. Abdominal: General: Abdomen is flat. Palpations: Abdomen is soft. Tenderness: There is no abdominal tenderness. Musculoskeletal: General: No tenderness. Normal range of motion. Cervical back: Normal range of motion and neck supple. No rigidity or tenderness. Lymphadenopathy: Cervical: No cervical adenopathy. Skin: General: Skin is warm. Findings: No rash. Neurological: General: No focal deficit present. Mental Status: She is alert and oriented to person, place, and time. GCS: GCS eye subscore is 4. GCS verbal subscore is 5. GCS motor subscore is 6. Cranial Nerves: Cranial nerves 2-12 are intact. No cranial nerve deficit. Sensory: Sensation is intact. No sensory deficit. Motor: Motor function is intact. No weakness. Coordination: Coordination is intact. Coordination normal. Gait: Gait is intact. Gait normal. Deep Tendon Reflexes: Reflexes normal. Comments: No dysarthria, dysmetria, diplopia, disdiadochokinesia. Strength 5/5 in b/l UEs with gripand b/l LEs with dorsi- and plantar-flexion against resistance. Sensation to light touch and 2-point discrimination intact in b/l distal UEs and LEs. ambulance operations supervisor II-XII intact. Negative Romberg. Very slow, but steady gait. No ataxia. Psychiatric: Mood and Affect: Mood normal. Behavior: Behavior normal. Thought Content: Thought content normal. Judgment: Judgment normal. ED Course, Procedures, & Data Procedures EKG Interpretation: Interpreted by Todd Osborn MD Time reviewed: 11:29 AM Symptoms at time of EKG: Dizziness Rhythm: normal sinus Rate: normal [place]: normal Ectopy: none Conduction: normal ST Segments/ T Waves: No ST-T wave changes Q Waves: none Comparison to prior: Unchanged from old EKG done on March 03, 2024 Clinical Impression: NSR, no acute ischemia Results for orders placed or performed during the hospital encounter of 05/10/24 CTA Head Neck with Contrast Status: None Narrative EXAM: CTA HEAD NECK W CONTRAST 05/10/2024 [...] of the upper aortic arch through the [place]. This CT angiogram data was [...] 1.2 cm. No significant spinal canal stenosis. Impression IMPRESSION: 1. Head CTA demonstrates no aneurysm or stenosis of the major intracranial arteries. 2. Neck CTA demonstrates no stenosis of the major cervical arteries. I have personally reviewed the examination and initial interpretation and I agree with the findings. MAE NIETO MD CT Head w/o Contrast Status: None Narrative EXAM: CT HEAD W/O CONTRAST 05/10/2024 3:39 PM HISTORY: Concern for stroke. COMPARISON: CT 02/13/2024, 02/04/2024. MRI 02/13/2024. TECHNIQUE: Using multidetector thin collimation helical acquisition technique, axial, coronal and sagittal CT images from the skull base to the vertex were obtained without intravenous contrast. Engine Manager (topogram) image(s) also obtained and reviewed. [...] agree with the findings. MAE NIETO MD Basic metabolic panel Status: Normal Result Value Ref Range Sodium 140 135 - 145 mmol/L Potassium 4.1 3.4 - 5.3 mmol/L Chloride 104 98 - 107 mmol/L Carbon Dioxide (CO2) 25 22 - 29 mmol/L Anion Gap 11 7 - 15 mmol/L Urea Nitrogen 13.4 6.0 - 20.0 mg/dL Creatinine 0.78 0.51 - 0.95 mg/dL GFR Estimate >90 >60 mL/min/1.73m2 Calcium 9.8 8.8 - 10.4 mg/dL Glucose 85 70 - 99 mg/dL INR Status: Normal Result Value Ref Range INR 0.92 0.85 - 1.15 Partial thromboplastin time Status: Normal Result Value Ref Range aPTT 25 22 - 38 Seconds Troponin T, High Sensitivity Status: Normal Result Value Ref Range Troponin T, High Sensitivity <6 <=14 ng/L CBC with platelets and differential Status: None Result Value Ref Range WBC Count 8.5 4.0 - 11.0 10e3/uL RBC Count 4.80 3.80 - 5.20 10e6/uL Hemoglobin 14.7 11.7 - 15.7 g/dL Hematocrit 43.9 35.0 - 47.0 % MCV 92 78 - 100 fL MCH 30.6 26.5 - 33.0 pg MCHC 33.5 31.5 - 36.5 g/dL RDW 11.9 10.0 - 15.0 % Platelet Count 185 150 - 450 10e3/uL % Neutrophils 60 % % Lymphocytes 28 % % Monocytes 6 % % Eosinophils 5 % % Basophils 1 % % Immature Granulocytes 0 % NRBCs per 100 WBC 0 <1 /100 Absolute Neutrophils 5.2 1.6 - 8.3 10e3/uL Absolute Lymphocytes 2.3 0.8 - 5.3 10e3/uL Absolute Monocytes 0.5 0.0 - 1.3 10e3/uL Absolute Eosinophils 0.4 0.0 - 0.7 10e3/uL Absolute Basophils 0.0 0.0 - 0.2 10e3/uL Absolute Immature Granulocytes 0.0 <=0.4 10e3/uL Absolute NRBCs 0.0 10e3/uL Glucose by meter Status: Normal Result Value Ref Range GLUCOSE BY METER POCT 78 70 - 99 mg/dL EKG 12-lead, tracing only Status: None Result Value Ref Range Systolic Blood Pressure mmHg Diastolic Blood Pressure mmHg Ventricular Rate 66 BPM Atrial Rate 66 BPM AL Interval 162 ms QRS Duration 84 ms QT 378 ms QTc 396 ms P [place] 67 degrees R AXIS 84 degrees T [place] 34 degrees Interpretation ECG Sinus rhythm Possible Left atrial enlargement Borderline ECG Unconfirmed report - interpretation of this ECG is computer generated - see medical record for final interpretation Confirmed by - EMERGENCY ROOM, PHYSICIAN ([id number]), sound editor MAILE STEINER ([id number]) on 05/10/2024 11:53:46 AM CBC with Platelets & Differential Status: None Narrative The following orders were created for panel order CBC with Platelets & Differential. Procedure Abnormality Status --------- ------ CBC with platelets and d...[[id number]] Final result Please view results for these tests on the individual orders. Medications iopamidol (ISOVUE-370) solution 67 mL (67 mLs Intravenous $Given 05/10/24 1526) sodium chloride (PF) 0.9% PF flush 90 mL (90 mLs Intravenous $Given 05/10/24 1525) acetaminophen (TYLENOL) tablet 1,000 mg (1,000 mg Oral $Given 05/10/24 1638) Labs Ordered and Resulted from Time of ED Arrival to Time of ED Departure BASIC METABOLIC PANEL - Normal Result Value Sodium 140 Potassium 4.1 Chloride 104 Carbon Dioxide (CO2) 25 Anion Gap 11 Urea Nitrogen 13.4 Creatinine 0.78 GFR Estimate >90 Calcium 9.8 Glucose 85 INR - Normal INR 0.92 PARTIAL THROMBOPLASTIN TIME - Normal aPTT 25 TROPONIN T, HIGH SENSITIVITY - Normal Troponin T, High Sensitivity <6 GLUCOSE BY METER - Normal GLUCOSE BY METER POCT 78 CBC WITH PLATELETS AND DIFFERENTIAL WBC Count 8.5 RBC Count 4.80 Hemoglobin 14.7 Hematocrit 43.9 MCV 92 MCH 30.6 MCHC 33.5 RDW 11.9 Platelet Count 185 % Neutrophils 60 % Lymphocytes 28 % Monocytes 6 % Eosinophils 5 % Basophils 1 % Immature Granulocytes 0 NRBCs per 100 WBC 0 Absolute Neutrophils 5.2 Absolute Lymphocytes 2.3 Absolute Monocytes 0.5 Absolute Eosinophils 0.4 Absolute Basophils 0.0 Absolute Immature Granulocytes 0.0 Absolute NRBCs 0.0 GLUCOSE MONITOR NURSING POCT CTA Head Neck with Contrast Final Result IMPRESSION: 1. Head CTA demonstrates no aneurysm or stenosis of the major intracranial arteries. 2. Neck CTA demonstrates no stenosis of the major cervical arteries. I have personally reviewed the examination and initial interpretation and I agree with the findings. MAE NIETO MD CT Head w/o Contrast Final Result IMPRESSION: No acute intracranial pathology. I have personally reviewed the examination and initial interpretation and I agree with the findings. MAE NIETO MD Critical care was not performed. Medical Decision Making The patient's presentation was of high complexity (an acute health issue posing potential threat tolife or bodily function). The patient's evaluation involved: review of external note(s) from 1 sources (see separate area of note for details) review of 3+ test result(s) ordered prior to this encounter (see separate area of note for details) ordering and/or review of 3+ test(s) in this encounter (see separate area of note for details) independent interpretation of testing performed by another health professional (see separate area of note for details) discussion of management or test interpretation with another health professional (see separate areaof note for details) The patient's management necessitated further care after sign-out to Dr. Rae (see their note for further management). Assessment & Plan 48-year-old woman with history of dural sinus fistula and stroke presenting with nausea, dizziness,gait changes over the last 3 to 4 days. Differential diagnosis: Intracranial hemorrhage, carotid dissection, ischemic stroke. After thorough history and physical exam patient appears to be in no acute distress. I will obtain CT/CTA of the head and neck, obtain MRI images from [facility], and consult stroke service.Will also obtain laboratory studies and EKG. Patient and her agree with the plan. Patient is outside any code stroke criteria to warrant stroke activation. Patient's laboratory studies returned without any evidence of leukocytosis, WBC is normal at 8500. There is no evidence of anemia, hemoglobin is normal at 14.7. Electrolytes show no evidence of dehydration, creatinine is normal at 0.78. Troponin is undetectable. EKG showed no acute ischemia. I reviewed patient's CT of the head and CT angiogram of the head/neck and I read the radiology report; no acute findings were identified. 5:36 PM Patient will be signed out to my partner awaiting stroke service location/recommendations. This part of the medical record was transcribed by ANDREA POOLE Wagon Washer, from a dictation done by Todd Osborn MD. I have reviewed the nursing notes. I have reviewed the findings, diagnosis, plan and need for follow up with the patient. New Prescriptions No medications on file Final diagnoses: None I, Joya Cannon, am serving as a trained emergency medical services coordinator to document services personally performed by Todd Osborn MD, MD, based on the provider's statements to me. I, Todd Osborn MD, MD, was physically present and have reviewed and verified the accuracy of this note documented by Joya Cannon. Todd Osborn MD [facility] EMERGENCY DEPARTMENT 05/10/2024 Todd Osborn MD 05/10/24 [id number] * Marii Foster RN - 05/10/2024 10:56 AM CDT Triage Assessment & Note: BP (!) 138/93 Pulse 81 Temp 98.2 ??F (36.8 ??C) (Oral) Resp 16 Ht 1.727 m (5' 8) Wt 97.5kg (215 lb) LMP 01/07/2006 SpO2 98% BMI 32.69 kg/m?? Patient presents with: Pt comes via to triage with family with reports of headache/ balance issues/ and dizziness. Pt seen at OSH for similar issues 05/07/24. No reports of fever, cough, SOB, CP, or travel. Home Treatments/Remedies: Home medications Febrile / Afebrile: afebrile Duration of C/o: ongoing issues Marii Song RN May 10, 2024 documented in this encounter Plan of Treatment Upcoming Encounters Date Type Department Care Team (Late st Contact Info) Description 05/26/2024 8:30 AM CDT Office Visit [facility] [address] [place] [phone] Denise Woodson Ra, INSPECTOR PURCHASED PARTS MEDIA SPECIALIST [address] [place] [id number] 06/08/2024 8:30 AM CDT Office Visit [facility] [place] [address] [place] [phone] Denise Woodson Ra, INSPECTOR PURCHASED PARTS MEDIA SPECIALIST [id number] [facility] [place] [phone] documented as of this encounter Goals Goal [...] Mental Health weekly - PT, OT and POKER SUPERVISOR - PCP appointment 05/26/24 & 06/08/24 - Stroke Neurology Dr. Hoyos 04/14/24 #[phone] - Epilepsy Neurology Dr. Barcenas 05/05/24 follow up recommended in 2 months: 07/05/24 TBD. #[phone] - Vascular Dr. Zambrano 05/01/24 - follow up recommended in 6 months: 11/11/24 TBD #[phone]. - MTM if covered by insurance TBD [...] clinic with 24/7 after hours services available. Dowel Inserting Machine Operator will remain available as needed. documented as of this encounter Procedures Procedure Name Priority Date/Time Associated Diagnosis Comments MR BRAIN W/O & W CONTRAST STAT 05/10/2024 8:21 PM CDT KEPPRA (LEVETIRACETAM) LEVEL STAT 05/10/2024 6:49 PM CDT CTA HEAD NECK W CONTRAST STAT 05/10/2024 3:[address] HEAD W/O CONTRAST STAT 05/10/2024 3:39 PM CDT CBC WITH PLATELETS AND DIFFERENTIAL STAT 05/10/2024 2:34 PM CDT TROPONIN T, HIGH SENSITIVITY STAT 05/10/2024 2:34 PM CDT CBC WITH PLATELETS & DIFFERENTIAL STAT 05/10/2024 2:34 PM CDT INR STAT 05/10/2024 2:34 PM CDT PARTIAL THROMBOPLASTIN TIME STAT 05/10/2024 2:34 PM CDT BASIC METABOLIC PANEL STAT 05/10/2024 2:34 PM CDT GLUCOSE BY METER STAT 05/10/2024 2:33 PM CDT EKG 12-LEAD, TRACING ONLY STAT 05/10/2024 11:25 AM CDT documented in this encounter Results [...] MR BRAIN W/O and W CONTRAST LOCATION: [facility] DATE: 05/10/2024 INDICATION: dizziness; Headache; Acute [...] MR BRAIN W/O and W CONTRAST LOCATION: [facility] DATE: 05/10/2024 INDICATION: dizziness; Headache; Acute [...] LAB - BLOOD ORDERA BLES [facility] [address] [facility] [address] [facility], [address] [place] [phone] * CTA Head Neck with Contrast (05/10/2024 3:43 PM CDT) Anatomical Region Laterality Modality Head, [...] of the upper aortic arch through the [place]. This CT angiogram data was [...] of the upper aortic arch through the [place]. This CT angiogram data was [...] Head w/o Contrast (05/10/2024 3:39 PM CDT) Anatomical Region Laterality Modality Head, [...] the vertex were obtained without intravenous contrast. Engine Manager (topogram) image(s) also obtained and reviewed. [...] the vertex were obtained without intravenous contrast. Engine Manager (topogram) image(s) also obtained and reviewed. [...] findings. MAE NIETO MD Todd Osborn MD [facility] ORDERABLES * CBC with platelets and differential (05/10/2024 2:34 PM CDT) WBC Count 8.5 4.0 - 11.0 10e3/uL [...] MD LAB - BLOOD ORDERABL [facility] [address] [facility], [address] * Troponin T, High Sensitivity (05/10/2024 2:34 PM CDT) Troponin T, High Sensitivity <6 <=14 ng/L 05/10/2024 3:05 PM CDT LABORATORY Comment: Either a High [...] MD LAB - BLOOD ORDERABL [facility] [address] [facility], [address] [id number] * Partial thromboplastin time (05/10/2024 2:34 PM CDT) aPTT 25 22 - 38 Seconds 05/10/2024 2:54 PM CDT LABORATORY Blood STRUCTURE OF LEFT HAND / Unknown Venipuncture / Unknown 05/10/2024 2:34 PM CDT 05/10/2024 2:38 PM CDT Todd Osborn MD LAB - BLOOD ORDERABL ES Performing Organization Address [facility]/ZIP Co de Phone Number [facility] [address] [facility], [address] * INR (05/10/2024 2:34 PM CDT) INR 0.92 0.85 - 1.15 05/10/2024 2:54 PM CDT [facility] Blood STRUCTURE OF LEFT HAND / Unknown Venipuncture / Unknown 05/10/2024 2:34 PM CDT 05/10/2024 2:38 PM CDT Todd Osborn MD LAB - BLOOD ORDERABL ES Performing Organization Address City/[facility] de Phone Number [facility] [address] [facility], [address] * Basic metabolic panel (05/10/2024 2:34 PM CDT) Sodium 140 135 - 145 mmol/L 05/10/2024 [...] 3:05 PM CDT [facility] Comment:eGFR calculated usin 2020 CKD-EPI equation. Calcium 9.8 8.8 - [...] BLOOD ORDERABL ES Performing Organization Address City/[facility]/ZIP Co de Phone Number [facility] [address] [facility], [address] * Glucose by meter (05/10/2024 2:33 PM CDT) GLUCOSE BY METER POCT 78 70 - 99 mg/dL 05/10/2024 2:40 PM CDT [facility] POC Blood, Capillary BLOOD SPECIMEN / Unknown 05/10/2024 2:33 PM CDT 05/10/2024 2:40 PM CDT Todd Osborn MD LAB - BEAKER POCT [facility] POC [facility] [address] [facility], [address] * EKG 12-lead, tracing only (05/10/2024 11:25 AM CDT) Systolic Blood Pressure mmHg RADIOLOGY RESULTS Diastolic Blood Pressure mmHg RADIOLOGY RESULTS Ventricular Rate 66 BPM RAD IOLOGY RESULTS Atrial Rate 66 BPM RADIOLOG Y RESULTS AL Interval 162 ms RADIOLOG Y RESULTS QRS Duration 84 ms RADIOLO GY RESULTS QT 378 ms RADIOLOGY RESULTS QTc 396 ms RADIOLOGY RESULTS P [place] 67 degrees RADIOLOGY RESULTS R AXIS 84 degrees RADIOLOGY RESULTS T [place] 34 degrees RADIOLOGY RESULTS Interpretation ECG Sinus rhythm Possible Left atrial enlargement Borderline ECG Unconfirmed report - interpretation of this ECG is computer generated - see medical record for final interpretation Confirmed by - EMERGENCY ROOM, PHYSICIAN ([id number]), sound editor MAILE STEINER ([id number]) on 05/10/2024 11:53:46 AM RADIOLOGY RESULTS 05/10/2024 11:2 5 AM CDT 05/10/2024 11:53 AM CDT Todd Osborn MD ECG ORDERABLES RADIOLOGY RESULTS documented in this encounter Visit Diagnoses Diagnosis Intractable headache, unspecified chronicity pattern, unspecified headache type Dizziness Dizziness and giddiness documented in this encounter Administered Medications Inactive Administered Medications - up to 3 most recent administrations Medication Order MAR Action Action Date Dose Rate Site acetaminophen (TYLENOL) tablet 1,000 mg 1,000 mg, Oral, ONCE, On 05/10/24 at 1635, For 1 dose, Maximum acetaminophen dose from all sources = 75 mg/kg/day not to exceed 4 gram $Given 05/10/2024 4:38 PM CDT 1,000 mg acetaminophen (TYLENOL) tablet 1,000 mg 1,000 mg, Oral, ONCE, On 05/10/24 at 2210, For 1 dose, Maximum acetaminophen dose from all sources = 75 mg/kg/day not to exceed 4 gram $Given 05/10/2024 10:14 PM CDT 1,000 mg gadobutrol (GADAVIST) injection 9.75 mL 9.75 mL (0.1 mL/kg ? 97.5 kg), Intravenous, ONCE, On 05/10/24 at 1935, For 1 dose $Given 05/10/2024 7:43 PM CDT 9.7 mLs iopamidol (ISOVUE-370) solution 67 mL 67 mL, Intravenous, ONCE, On 05/10/24 at 1515, For 1 dose $Given 05/10/2024 3:26 PM CDT 67 mLs sodium chloride (PF) 0.9% PF flush 90 mL 90 mL, Intravenous, ONCE, On 05/10/24 at 1515, For 1 dose $Given 05/10/2024 3:25 PM CDT 90 mLs documented in this encounter Active and Recently Administered Medications Times are shown in CDT. Scheduled Medication Order 05/09/2024 05/10/2024 05/11/2024 acetaminophen (TYLENOL) tablet 1,000 mg (COMPLETED) 1,000 mg, Oral, ONCE, On 05/10/24 at 1635, For 1 dose, Maximum acetaminophen dose from all sources = 75 mg/kg/day not to exceed 4 gram 1638 ($Given - Provider: Sameer Bush, GEMA) acetaminophen (TYLENOL) tablet 1,000 mg (COMPLETED) 1,000 mg, Oral, ONCE, On 05/10/24 at 2210, For 1 dose, Maximum acetaminophen dose from all sources = 75 mg/kg/day not to exceed 4 gram 2214 ($Given - Provider: Elan Stephen RN) gadobutrol (GADAVIST) injection 9.75 mL (COMPLETED) 9.75 mL (0.1 mL/kg ? 97.5 kg), Intravenous, ONCE, On 05/10/24 at 1935, For 1 dose 1943 ($Given - [facility] iopamidol (ISOVUE-370) solution 67 mL (COMPLETED) 67 mL, Intravenous, ONCE, On 05/10/24 at 1515, For 1 dose 1526 ($Given - Provider: Bindu Bliss) sodium chloride (PF) 0.9% PF flush 90 mL (COMPLETED) 90 mL, Intravenous, ONCE, On 05/10/24 at 1515, For 1 dose 1525 ($Given - Provider: Bindu Bliss) documented in this encounter Additional Health Concerns Active Problems Noted Date Diagnosed Date Increased risk of re-admission 02/18/2024 Assessment Noted Time PHQ-9 Depression Total Score: 5 03/17/20 24 9:45 AM CDT documented as of this encounter Care Teams Filter Changing Technician Relationship Specialty Start Date End Date Winston Villatoro OD [facility] [address] [facility] [address] [place] [address] PCP - Ophthalmology Ophthalmology 02/11/13 Denise Woodson Ra, INSPECTOR PURCH[employer]ED PARTS MEDIA SPECIALIST [address] [place] [address] PCP - General Family Practice 09/21/20 Denise Woodson Ra, INSPECTOR PURCH[employer]ED [employer]S MEDIA SPECIALIST [address] [place] [address] Assigned PCP 07/17/20 Usha Simon APRN MEDIA SPECIALIST [address] [address] Nurse Practitioner Neurological Surgery 01/24/24 Dangelo Salinas MD [address] [place] [address] Neurology 01/27/24 Anastasia Stearns, RN Lead Dowel Inserting Machine Operator 02/06/24 Germaine Lopez, W Community Health Worker Primary Care - CC 02/18/24 Lisa Zambrano MD [address] [place] [id number] Assigned Heart and Vascular Provider 05/08/24 Raul Hoyos MD [address] [address] Assigned Neuroscience Provider 05/08/24 documented as of this encounter
--- OUTSIDE RECORDS SUMMARY | 2024-05-14 11:57 | XMS_ITS | Encounter Summary ---
Author Organization [place] Address [address] [place] [address] Care Team Providers Care Improvement Intern Name Role Phone Winston Villatoro OD Unavailable Denise Woodson Ra, APRN CONTINUOUS STILL OPERATOR Unavailable + [phone] Denise Woodson Ra, APRN CONTINUOUS STILL OPERATOR Primary Care Provid er Usha Simon APRN CONTINUOUS STILL OPERATOR Unavailable [phone] Dangelo Salinas MD Unavailable Anastasia Stearns RN Unavailable Germaine Lopez CHW Unavailable Lisa Zambrano MD Unavailable [phone] Raul Hoyos MD Unavailable Encounter Details Date Type Department Care Team (Late st Contact Info) Description 05/08/2024 [facility] Medical Advice [facility] [address] 3rd [place] [address] Robin Zepeda MD [address] [place] [address] [address] Social History Tobacco Use Types [...] How often do you attend episcopalian or faith serv ices? Never 02/28/2024 Do you belong [...] Answer Date Recorded PHQ-2 Score 2 05/05/2024 [facility] ional Health - Occupational [...] Description 05/26/2024 8:30 AM CDT Office Visit [facility] [address] [place] [phone] Denise Woodson Ra, BARRERA CONTINUOUS STILL OPERATOR [address] [place] [address] 06/08/2024 8:30 AM CDT [facility] [address] [place] [phone] Denise Woodson Ra, BARRERA CONTINUOUS STILL OPERATOR [address] [facility] [place], [place] [id number] documented as of this encounter Goals Goal [...] Mental Health weekly - PT, OT and DIRECTOR OF ACQUISITION MARKETING - PCP appointment 05/26/24 & 06/08/24 - Stroke Neurology Dr. Hoyos 04/14/24 #[phone] - Epilepsy Neurology Dr. Barcenas 05/05/24 follow up recommended in 2 months: 07/05/24 TBD. #[phone] - Vascular Dr. Zambrano 05/01/24 - follow up recommended in 6 months: 11/11/24 TBD #[phone]. - MTM if covered by insurance TBD [...] clinic with 24/7 after hours services available. Glass Loading Equipment Tender will remain available as needed. documented as of this encounter Visit Diagnoses Not on filedocumented in this encounter Additional Health Concerns Active Problems Noted Date Diagnosed Date Increased risk of re-admission 02/18/2024 Assessment Noted Time PHQ-9 Depression Total Score: 5 03/17/20 9:45 AM CDT documented as of this encounter Care Teams Improvement Intern Relationship Specialty Start Date End Date Winston Villatoro OD [facility] [place] [address] [place] [address] PCP - Ophthalmology Ophthalmology 02/11/13 Denise Woodson Ra, AIR BRAKE TESTER CONTINUOUS STILL OPERATOR [address] [address] PCP - General Family Practice 09/21/20 Denise Woodson Ra, APRN CONTINUOUS STILL OPERATOR [address] [address] Assigned PCP 07/17/20 Usha Simon APRN CONTINUOUS STILL OPERATOR [address], [place] [address] Nurse Practitioner Neurological Surgery 01/24/24 Dangelo Salinas MD [address] [place] [address] Neurology 01/27/24 Anastasia Stearns, RN Lead Glass Loading Equipment Tender 02/06/24 Germaine Lopez, [facility] Community Health Worker Primary Care - CC 02/18/24 Lisa Zambrano MD [address] [place] [address] Assigned Heart and Vascular Provider 05/08/24 Raul Hoyos MD [address] [address], [place] [address] Assigned Neuroscience Provider 05/08/24 documented as of this encounter
--- OUTSIDE RECORDS SUMMARY | 2024-05-14 11:57 | XMS_ITS | Encounter Summary ---
Author Organization [place] Address [address] [place] [address] Care Team Providers Care Cable Strander Name Role Phone ShaunaWinston OD Unavailable [phone] Denise Woodson Ra, APRN MEDICAL DIAGNOSTIC RADIOGRAPHER Unavailable [phone] Denise Woodson Ra, APRN MEDICAL DIAGNOSTIC RADIOGRAPHER Primary Care Provid er Usha Simon APRN MEDICAL DIAGNOSTIC RADIOGRAPHER Unavailable [phone] Dangelo Salinas MD Unavailable Anastasia Stearns RN Unavailable [phone] Germaine Lopez CHW Unavailable [phone] Robin Zepeda MD Unavailable Encounter Details Date [...] How often do you attend jainism or baptist serv ices? Never 02/28/2024 Do [...] Answer Date Recorded PHQ-2 Score 2 05/05/2024 [facility] Occupat ional Health - Occupational Stress [...] Description 05/26/2024 8:30 AM CDT [facility] [address] [place] [phone] Denise Woodson Ra, SUBSTANCE ABUSE SPECIALIST MEDICAL DIAGNOSTIC RADIOGRAPHER [address] [place], [place] [phone] 06/08/2024 8:30 AM CDT Office Visit [facility] [address] [place] [address] Denise Woodson Ra, BARRERA MEDICAL DIAGNOSTIC RADIOGRAPHER [address] [place], [place] [phone] documented as of this encounter Goals Goal [...] Mental Health weekly - PT, OT and HYBRID TESTER - PCP appointment 05/26/24 & 06/08/24 - Stroke Neurology Dr. Hoyos 04/14/24 #[phone] - Epilepsy Neurology Dr. Barcenas 05/05/24 follow up recommended in 2 months: 07/05/24 TBD. #[phone] - Vascular Dr. Zambrano 05/01/24 - follow up recommended in 6 months: 11/11/24 TBD #[phone]. - MTM if covered by insurance TBD [...] clinic with 08/04 after hours services available. Cabinetmaker Maintenance will remain available as needed. documented as of this encounter Visit Diagnoses Not on filedocumented in this encounter Additional Health Concerns Active Problems Noted Date Diagnosed Date Increased risk of re-admission 02/18/2024 Assessment Noted Time PHQ-9 Depression Total Score: 5 03/17/20 9:45 AM CDT documented as of this encounter Care Teams Cable Strander Relationship Specialty Start Date End Date Winston Villatoro, OD [facility] [address] [place] [address] PCP - Ophthalmology Ophthalmology 02/11/13 Denise Woodson Ra, APRN MEDICAL DIAGNOSTIC RADIOGRAPHER [address] [address] [address] PCP - General Family Practice 09/21/20 Denise Woodson Ra, APRN MEDICAL DIAGNOSTIC RADIOGRAPHER [address] [address] Assigned PCP 07/17/20 Usha Simon APRN MEDICAL DIAGNOSTIC RADIOGRAPHER [address] [facility] [address] Nurse Practitioner Neurological Surgery 01/24/24 Dangelo Salinas MD [address] [place] [address] Neurology 01/27/24 Anastasia Stearns, RN Lead Cabinetmaker Maintenance 02/06/24 Germaine Lopez, W Community Health Worker Primary Care - CC 02/18/24 Robin Zepeda MD [address] [facility] [address] Assigned Neuroscience Provider 03/08/24 05/07/24 documented as of this encounter
--- OUTSIDE RECORDS SUMMARY | 2024-05-14 11:57 | XMS_ITS | Encounter Summary ---
Author Organization [place] Address [address] [place] [address] Care Team Providers Care Drill Grinder Name Role Phone Winston Villatoro OD Unavailable [phone] Denise Woodson Ra, APRN FURNITURE SALES CONSULTANT Unavailable [phone] Denise Woodson Ra GLASS VIAL BENDING CONVEYOR FEEDER FURNITURE SALES CONSULTANT Primary Care Provid er Usha Simon APRN FURNITURE SALES CONSULTANT Unavailable Dangelo Salinas MD Unavailable Anastasia Stearns RN Unavailable [phone] Germaine Lopez CHW Unavailable [phone] Robin Zepeda MD Unavailable Reason for Visit * Reason Comments New Patient * Consultation (Urgent: 3-5 Days) - Pending Review Specialty Diagnoses / Procedures Referred By Nila shah Referred To Contact Diagnoses Fibromuscular dysplasia (H24) Cerebrovascular accident (CVA), unspecified mechanism (H) Denise Woodson Ra, GLASS VIAL BENDING CONVEYOR FEEDER FURNITURE SALES CONSULTANT [address] [place] [address] Referral ID Status Reason Start Date Expiration Date V isits Requested Visits Authorized [id number] Pending Review 02/06/2024 02/05/2025 1 1 Encounter Details Date Type Department Care Team ([facility] st Contact Info) Description 05/05/2024 2:30 PM CDT Office Visit [facility] [address] [place] [phone] Rohit Barcenas MD [address] [facility] [address] [place], [place] [address] 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 Never 02/28/2024 Do [...] Answer Date Recorded PHQ-2 Score 2 05/05/2024 [facility] [place] of Occupat ional Health - Occupational Stress [...] Barcenas MD - 05/05/2024 2:30 PM CDT [facility] Epilepsy Clinic: NEW PATIENT EVALUATION Service [...] syntax and comprehension. Rapid alternating movements, and ecflop-gbii-hqdpop and heel-mast maneuvers were performed normally bilaterally. [...] denied having suicidal ideation recently. I reviewed [place] regulations on seizures and driving with the patient. She appeared to clearly understand that she is prohibited from operating a motor vehicle within 3 months following any seizure or other episode with sudden unconsciousness or inability to sit up, and that she is required to report any future such seizure to the [facility] within 30 days after the event. I [...] Description 05/26/2024 8:30 AM CDT Office Visit [facility] [address] [place] [phone] Denise Woodson Ra, BARRERA FURNITURE SALES CONSULTANT [address] [place] [address] 06/08/2024 8:30 AM CDT Office Visit [facility] [address] [place] [phone] Denise Woodson Ra, APRN FURNITURE SALES CONSULTANT [address] [place], [place] [phone] documented as of this encounter Goals Goal [...] Health weekly - PT, OT and INSTRUMENT ASSEMBLY SUPERVISOR - PCP appointment 05/26/24 & 06/08/24 - Stroke Neurology Dr. Hoyos 04/14/24 #[phone] - Epilepsy Neurology Dr. Barcenas 05/05/24 follow up recommended in 2 months: 07/05/24 TBD. #[phone] - Vascular Dr. Zambrano 05/01/24 - follow up recommended in 6 months: 11/11/24 TBD #[phone]. - MTM if covered by insurance TBD [...] clinic with 24/ after hours services available. Industrial Services Worker will remain available as needed. documented [...] as of this encounter Care Teams Drill Grinder Relationship Specialty Start Date End Date Winston Villatoro OD [facility] [address] [place] [address] PCP - Ophthalmology Ophthalmology 02/11/13 Denise Woodson Ra, APRN FURNITURE SALES CONSULTANT [address] [address] [address] PCP - General Family Practice 09/21/20 Denise Woodson Ra, APRN FURNITURE SALES CONSULTANT [address] [address] [address] Assigned PCP 07/17/20 Usha Simon APRN CNP [address] [facility] [address] Nurse Practitioner Neurological Surgery 01/24/24 Dangelo Salinas MD [address] [place] [address] Neurology 01/27/24 Anastasia Stearns, RN Lead Industrial Services Worker 02/06/24 Germaine Lopez, W Community Health Worker Primary Care - CC 02/18/24 Robin Zepeda MD [address] [facility] [address] Assigned Neuroscience Provider 03/08/24 05/07/24 documented as of this encounter
--- OUTSIDE RECORDS SUMMARY | 2024-05-14 11:57 | XMS_ITS | Encounter Summary ---
Author Organization [place] Address [address] [place] [address]. [place] [address] Care Team Providers Care Wheel Shop Supervisor Name Role Phone Winston Villatoro OD Unavailable [phone] Denise Woodson Ra, APRN SHIFT SUPERVISOR RN Unavailable Denise Woodson Ra HEALTH ACTUARY SHIFT SUPERVISOR RN Primary Care Provid er Usha Simon APRN SHIFT SUPERVISOR RN Unavailable [phone] Dangelo Salinas MD Unavailable Anastasia Stearns RN Unavailable Germaine Lopez CHW Unavailable [phone] Lisa Zambrano MD Unavailable [phone] Raul Hoyos MD Unavailable Encounter Details Date Type Department Care Team (Late st Contact Info) Description 05/12/2024 [facility] [address] [place] [address] Denise Woodson Ra, [place] [address] [place] [address] Social History Tobacco Use Types [...] Answer Date Recorded PHQ-2 Score 2 05/05/2024 [facility]ational Stress Questionnaire [...] in an abandoned building, in an overnight assisted, or couch-surfing.) Yes 02/28/2024 Are you worried [...] encounter Miscellaneous Notes * Telephone Encounter - Martina Huynh RN - 05/12/2024 10:09 AM CDT Talked to Denise Woodson about below. She advised having the pt talk to neurology. She said for ptto talk to neurology before scheduling here. Pt advised to contact neurology right away. She said she had a visit with Dr. Hoyos in March and she didn't have to go back. Advised since she has seen her in the past and is now having thesesymptoms should reach out to them right away. Advised if worse before she hears back from someone to be seen in the ER right away. * Telephone Encounter - Martina Huynh RN - 05/12/2024 9:55 AM CDT [facility]. She had a stroke in December. She was doing recovery. She was doing a gradual return to work. he was having severe h/a, dizziness and she could not walk right. She went to the ER in [place]. They did imaging and thought it was a migraine. Over the weekend her symptoms got worse. She went to [place] to the ER. Her headache went away. This morning her vision is blurry. She still feels dizzy and her walking oriana little off. Last night she felt a new seizure coming on and she took some keppra and ativan to stop the seizure. She just feels really off and different. She is wondering if she can go back on restrictions. She wants to do short term disability and have a work note. She has been to 2 ER's this weekend. documented in this encounter Plan of Treatment Upcoming Encounters Date Type Department Care Team (Late st Contact Info) Description 05/26/2024 8:30 AM CDT [facility] [address] [place] [phone] Denise Woodson Ra, [place] [address] [place] [address] 06/08/2024 8:30 AM CDT Office Visit [facility] [address] [place] [phone] Denise Woodson Ra, [place] [address] [place] [address] documented as of this encounter Goals Goal [...] Mental Health weekly - PT, OT and OIL CHANGE TECHNICIAN - PCP appointment 05/26/24 & 06/08/24 - Stroke Neurology Dr. Hoyos 04/14/24 #[phone] - Epilepsy Neurology Dr. Barcenas 05/05/24 follow up recommended in 2 months: 07/05/24 TBD. #[phone] - Vascular Dr. Zambrano 05/01/24 - follow up recommended in 6 months: 11/11/24 TBD #[phone]. - MTM if covered by insurance TBD [...] clinic with 08/04 after hours services available. Ice Sculptor will remain available as needed. documented as of this encounter Visit Diagnoses Not on filedocumented in this encounter Additional Health Concerns Active Problems Noted Date Diagnosed Date Increased risk of re-admission 02/18/2024 Assessment Noted Time PHQ-9 Depression Total Score: 5 03/17/20 9:45 AM CDT documented as of this encounter Care Teams Wheel Shop Supervisor Relationship Specialty Start Date End Date Winston Villatoro OD [facility] [address] [facility] [address] [place] [address] PCP - Ophthalmology Ophthalmology 02/11/13 Denise Woodson Ra, [place] [address] [address] [address] PCP - General Family Practice 09/21/20 Denise Woodson Ra, [place] [address] [address] [address] Assigned PCP 07/17/20 Usha Simon APRN CNP [address] [address] Nurse Practitioner Neurological Surgery 01/24/24 Dangelo Salinas MD [address] [place] [address] Neurology 01/27/24 Anastasia Stearns, RN Lead Ice Sculptor 02/06/24 Germaine Lopez, [facility] Community Health Worker Primary Care - CC 02/18/24 Lisa Zambrano MD [address] [place] [address] Assigned Heart and Vascular Provider 05/08/24 Raul Hoyos MD [address] [address] Assigned Neuroscience Provider 05/08/24 documented as of this encounter
--- OUTSIDE RECORDS SUMMARY | 2024-05-14 11:57 | XMS_ITS | Encounter Summary ---
Author Organization [place] Address [address] [place] [address]. [place] [address] Care Team Providers Care Pattern Painter Name Role Phone Winston Villatoro OD Unavailable Denise Woodson Ra, APRN MAJOR CASE DETECTIVE Unavailable Denise Woodson Ra SPECIAL DISTRIBUTION CLERK MAJOR CASE DETECTIVE Primary Care Provid er Usha Simon APRN MAJOR CASE DETECTIVE Unavailable [phone] Dangelo Salinas MD Unavailable Anastasia Stearns RN Unavailable Germaine Lopez CHW Unavailable Lisa Zambrano MD Unavailable [phone] Raul Hoyos MD Unavailable Encounter Details Date Type Department Care Team (Late st Contact Info) Description 05/11/2024 [facility] Medical Advice [facility] [address] [place] [address] Denise Woodson Ra, APRN MAJOR CASE DETECTIVE [address] [place] [address] Social History Tobacco Use Types [...] Never 02/28/2024 How often do you attend tenriism or pentecostal serv ices? Never 02/28/2024 Do you belong to any clubs o r organizations such as tenriism groups, unions, fraternal or athletic groups, or [...] Answer Date Recorded PHQ-2 Score 2 05/05/2024 [facility] [place] of Occupat ional Health - Occupational Stress [...] Encounter - Martina Huynh RN - 05/12/2024 10:12 AM CDT See telephone call of 05/12/24 also. Denise asked what the pt meant by the letter from Care Coordination. Asked the pt. She said there was a new letter from Anastasia Stearns - see letter from 05/11/24. Shesaid some of the names she was not familiar with in the letter. Will forward to Denise Woodson and Anastasia Stearns. * Telephone Encounter - Qing Copeland - 05/11/2024 3:02 PM CDT Routing to provider as VEDA. Qing Copeland Lead Rivet Thrower [facility] documented in this encounter Plan of Treatment Upcoming Encounters Date Type Department Care Team (Late st Contact Info) Description 05/26/2024 8:30 AM CDT Office Visit [facility] [address] [place] [phone] Denise Woodson Ra, SPECIAL DISTRIBUTION CLERK MAJOR CASE DETECTIVE [address] [facility] [place], [place] [phone] 06/08/2024 8:30 AM CDT Office Visit [facility] [address] [place] [phone] Denise Woodson Ra, SPECIAL DISTRIBUTION CLERK MAJOR CASE DETECTIVE [address] [facility] [place], [place] [phone] documented as of this encounter Goals Goal [...] Mental Health weekly - PT, OT and DRAFTER ASSISTANT - PCP appointment 05/26/24 & 06/08/24 - Stroke Neurology Dr. Hoyos 04/14/24 #[phone] - Epilepsy Neurology Dr. Barcenas 05/05/24 follow up recommended in 2 months: 07/05/24 TBD. #[phone] - Vascular Dr. Zambrano 05/01/24 - follow up recommended in 6 months: 11/11/24 TBD #[phone]. - MTM if covered by insurance TBD [...] clinic with 24/7 after hours services available. Door Puller will remain available as needed. documented as of this encounter Visit Diagnoses Not on filedocumented in this encounter Additional Health Concerns Active Problems Noted Date Diagnosed Date Increased risk of re-admission 02/18/2024 Assessment Noted Time PHQ-9 Depression Total Score: 5 03/17/20 24 9:45 AM CDT documented as of this encounter Care Teams Pattern Painter Relationship Specialty Start Date End Date Winston Villatoro OD [facility] [address] [facility] [address] [place] [address] PCP - Ophthalmology Ophthalmology 02/11/13 Denise Woodson Ra, APRN MAJOR CASE DETECTIVE [address] [place] [address] PCP - General Family Practice 09/21/20 Denise Woodson Ra, APRN MAJOR CASE DETECTIVE [address] [place] [address] Assigned PCP 07/17/20 Usha Simon APRN MAJOR CASE DETECTIVE [address] [facility]121[place] [address] Nurse Practitioner Neurological Surgery 01/24/24 Dangelo Salinas MD [address] [id number] Neurology 01/27/24 Anastasia Stearns, RN Lead Door Puller 02/06/24 Germaine Lopez, W Community Health Worker Primary Care - CC 02/18/24 Lisa Zambrano MD [address] [facility] [address] [place] [address] [place] [address] Assigned Heart and Vascular Provider 05/08/24 Raul Hoyos MD [address] [facility]121[place], [place] [address] Assigned Neuroscience Provider 05/08/24 documented as of this encounter
--- OUTSIDE RECORDS SUMMARY | 2024-05-14 11:57 | XMS_ITS | Encounter Summary ---
Author Organization [facility] Address [address] [place] [address] Care Team Providers Care Jack Tamp Operator Name Role Phone ShaunaWinston OD Unavailable [phone] Denise Woodson Ra, APRN MANGLE ROLL OPERATOR Unavailable + [phone] Denise Woodson Ra, APRN MANGLE ROLL OPERATOR Primary Care Provid er Usha Simon APRN MANGLE ROLL OPERATOR Unavailable [phone] Dangelo Salinas MD Unavailable Anastasia Stearns RN Unavailable Germaine Lopez CHW Unavailable [phone] Lisa Zambrano MD Unavailable [phone] Raul Hoyos MD Unavailable [phone] Reason for Visit * Reason Onset Date Comments Symptoms 05/12/2024 Stroke symptoms per pt Encounter Details Date Type Department Care Team (Late st Contact Info) Description 05/12/2024 Telephone [facility] [place] [address] [place] [address] 3rd [place] [address] Raul Hooys MD [address] [place] [id number] [address] Symptoms (Stroke symptoms per pt ) Social History Tobacco Use Types Packs/Day [...] Never 02/28/2024 How often do you attend catholic or mormon serv ices? Never 02/28/2024 Do you belong to any clubs o r organizations such as catholic groups, unions, fraternal or athletic groups, or [...] Answer Date Recorded PHQ-2 Score 2 05/05/2024 [facility] - Occupational Stress Questionnaire Answer Date [...] in an abandoned building, in an overnight intermediate, or couch-surfing.) Yes 02/28/2024 Are you worried [...] Telephone Encounter - Stacey Kelley RN - 05/12/2024 10:34 AM CDT Called patient back to discuss. Patient states since last she has had worsened headache, dizziness, and difficulty walking. She denies new weakness or facial droop- still some residual from original stroke. Headache has resolved today per patient. She calls in today with reports of all thesame symptoms besides the headache along with new onset blurry vision. She states when she logged into her computer to work today she was unable to read due to everything being blurry. RN advised patient to seek care in the nearest ED immediately. Patient states that she does not want to present tot ED as she has been to two doctors visits and the ED in the last 4 days. Patient has been tryingto go back to work but does not think she can at this point which is why she called into her PCP toget work restrictions updated. She noted these symptoms to her PCP who referred her to call us. 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 We do not have the imaging or reports in our system but RN asked navigation team to obtain these. Patient also states that starting the second week of April she had some decline in function, she felt very fatigued, walked into a wall, and was experiencing tingling on the right side. This was the same week she had started back to work so she blamed it on getting into things too fast and did not seek help until the headache and other symptoms began on , 05/07/24. RN advised patient 3 separate times to seek care in the nearest ED and patient did decline to go. She is planning to attend her occupational therapy appointment that is 2 blocks from her house at 12:15pm today. RN let patient know I will relay this information to Dr. Hoyos and will plan on appt with Dr. Hyoos next Saturday at 9:30am. Patient is aware. RN to contact patient with further recommendations. Stacey Kelley RN 05/12/2024 10:57 AM * Telephone Encounter - Daisy Day - 05/12/2024 10:18 AM CDT [facility] Call Center Phone Message May a detailed message be left on voicemail: yes Reason for Call: Symptoms or Concerns If patient has red-flag symptoms, warm transfer to triage line Current symptom or concern: Pt says she has had stroke symptoms since , she has had bad headaches, dizziness, and tingling, unalbe to keep balance, has been to the ED, today she is having blury vision. Symptoms have been present for: 6 day(s) Has patient previously been seen for this? No By : Date: Are there any new or worsening symptoms? Yes: all new Action Taken: Message routed to: [facility] Neurology Travel Screening: Not Applicable Date of Service: documented in this encounter Plan of Treatment Upcoming Encounters Date Type Department Care Team (Late st Contact Info) Description 05/26/2024 8:30 AM CDT Office Visit [facility] [place] [address] [place] [phone] Denise Woodson Ra, WEB MACHINE TENDER MANGLE ROLL OPERATOR [address] [facility] [place], [place] [id number] 06/08/2024 8:30 AM CDT Office Visit [facility] [place] [address] [place] [address] Denise Woodson Ra, WEB MACHINE TENDER MANGLE ROLL OPERATOR [address] [facility] [facility], [place] [phone] documented as of this encounter Goals Goal [...] Mental Health weekly - PT, OT and STAINING MACHINE OPERATOR - PCP appointment 05/26/24 & 06/08/24 - Stroke Neurology Dr. Hoyos 04/14/24 #[phone] - Epilepsy Neurology Dr. Barcenas 05/05/24 follow up recommended in 2 months: 07/05/24 TBD. #[phone] - Vascular Dr. Zambrano 05/01/24 - follow up recommended in 6 months: 11/11/24 TBD #[phone]. - MTM if covered by insurance TBD [...] clinic with 24/7 after hours services available. Polysomnographic Tech will remain available as needed. documented as of this encounter Visit Diagnoses Not on filedocumented in this encounter Additional Health Concerns Active Problems Noted Date Diagnosed Date Increased risk of re-admission 02/18/2024 Assessment Noted Time PHQ-9 Depression Total Score: 5 03/17/20 24 9:45 AM CDT documented as of this encounter Care Teams Jack Tamp Operator Relationship Specialty Start Date End Date Winston Villatoro OD [facility] [address] [facility] [address] [place] [address] PCP - Ophthalmology Ophthalmology 02/11/13 Denise Woodson Ra, APRN MANGLE ROLL OPERATOR [address] [place] [address] PCP - General Family Practice 09/21/20 Denise Woodson Ra, APRN MANGLE ROLL OPERATOR [address] [place] [address] Assigned PCP 07/17/20 Usha Simon APRN MANGLE ROLL OPERATOR [address] [facility] [id number] [address] Nurse Practitioner Neurological Surgery 01/24/24 Dangelo Salinas MD [address] [facility] [address] [facility] [address] [place], [place] [id number] Neurology 01/27/24 Anastasia Stearns, RN Lead Polysomnographic Tech 02/06/24 Germaine Lopez, CHW Community Health Worker Primary Care - CC 02/18/24 Lisa Zambrano MD [address] [facility] [address] [place] [address] Assigned Heart and Vascular Provider 05/08/24 Raul Hoyos MD [address]09 [facility] [address] Assigned Neuroscience Provider 05/08/24 documented as of this encounter
--- OUTSIDE RECORDS SUMMARY | 2024-05-14 11:57 | XMS_ITS | Encounter Summary ---
Author Organization [facility] Address [address] [place] [address] Care Team Providers Care Government Relations Director Name Role Phone ShaunaWinston OD Unavailable [phone] Denise Woodson Ra, APRN PACKAGE DELIVERY DRIVER Unavailable [phone] Denise Woodson Ra, APRN PACKAGE DELIVERY DRIVER Primary Care Provid er Usha Simon APRN PACKAGE DELIVERY DRIVER Unavailable [phone] Dangelo Salinas MD Unavailable Anastasia Stearns RN Unavailable [phone] Germaine Lopez CHW Unavailable [phone] Robin Zepeda MD Unavailable [phone] Encounter Details Date Type Department Care Team [...] Never 02/28/2024 How often do you attend mandaeism or voodoo serv ices? Never 02/28/2024 Do you belong to any clubs o r organizations such as mandaeism groups, unions, fraternal or athletic groups, or [...] Answer Date Recorded PHQ-2 Score 2 05/05/2024 [facility]at ional Health [...] Description 05/26/2024 8:30 AM CDT [facility] [address] [place] [phone] Denise Woodson Ra, COUNSELOR EDUCATION PROFESSOR PACKAGE DELIVERY DRIVER [address] [place], [place] [phone] 06/08/2024 8:30 AM CDT Office Visit [facility] [place] [address] [place] [address] Denise Woodson Ra, BARRERA PACKAGE DELIVERY DRIVER [address] [place], [place] [phone] documented as of this encounter Goals Goal [...] Mental Health weekly - PT, OT and PERSONAL DEVELOPMENT EDUCATOR - PCP appointment 05/26/24 & 06/08/24 - Stroke Neurology Dr. Hoyos 04/14/24 #[phone] - Epilepsy Neurology Dr. Barcenas 05/05/24 follow up recommended in 2 months: 07/05/24 TBD. #[phone] - Vascular Dr. Zambrano 05/01/24 - follow up recommended in 6 months: 11/11/24 TBD #[phone]. - MTM if covered by insurance TBD [...] clinic with 08/04 after hours services available. Hand Wrapper Operator will remain available as needed. documented as of this encounter Visit Diagnoses Not on filedocumented in this encounter Additional Health Concerns Active Problems Noted Date Diagnosed Date Increased risk of re-admission 02/18/2024 Assessment Noted Time PHQ-9 Depression Total Score: 5 03/17/20 9:45 AM CDT documented as of this encounter Care Teams Government Relations Director Relationship Specialty Start Date End Date Winston Villatoro, OD [facility] [address] [place] [address] PCP - Ophthalmology Ophthalmology 02/11/13 Denise Woodson Ra, APRN PACKAGE DELIVERY DRIVER [address] [place] [address] PCP - General Family Practice 09/21/20 Denise Woodson Ra, APRN PACKAGE DELIVERY DRIVER [address] [place] [place] [address] Assigned PCP 07/17/20 Usha Simon APRN PACKAGE DELIVERY DRIVER [address] [facility] [place] [facility] [place] [address] Nurse Practitioner Neurological Surgery 01/24/24 Dangelo Salinas MD [address] [place] [address] Neurology 01/27/24 Anastasia Stearns, RN Lead Hand Wrapper Operator 02/06/24 Germaine Lopez, W Community Health Worker Primary Care - CC 02/18/24 Robin Zepeda MD [address] [facility] [address] Assigned Neuroscience Provider 03/08/24 05/07/24 documented as of this encounter
--- OUTSIDE RECORDS SUMMARY | 2024-05-14 11:57 | XMS_ITS | Encounter Summary ---
Author Organization [facility] Address [address] [place] [address] Care Team Providers Care Bevel Face Stoner And Polisher Name Role Phone ShaunaWinston OD Unavailable Denise Woodson Ra, APRN HEALTH SCIENCES PROGRAM COORDINATOR Unavailable Denise Woodson Ra, APRN HEALTH SCIENCES PROGRAM COORDINATOR Primary Care Provid er Usha Simon STRUCTURAL WORKER HEALTH SCIENCES PROGRAM COORDINATOR Unavailable [phone] Dangelo Salinas MD Unavailable Anastasia Stearns RN Unavailable Germaine Lopez CHW Unavailable [phone] iLsa Zambrano MD Unavailable [phone] Raul Hoyos MD Unavailable Reason for Visit * Reason Comments Headache Encounter Details Date Type Department Care Team (Late st Contact Info) Description 05/12/2024 5:25 PM CDT - 05/12/2024 6:59 PM CDT [facility] [address] [place] [address] Chinedu Moon MD [facility] [address] [place] [address] Discharge Disposition: Left Without Being Seen Social History Tobacco Use Types Packs/Day Years [...] Never 02/28/2024 How often do you attend latter day or confucianism serv ices? Never 02/28/2024 Do you belong to any clubs o r organizations such as latter day groups, unions, fraternal or athletic groups, or [...] Answer Date Recorded PHQ-2 Score 2 05/05/2024 [facility] - Occupational Stress Questionnaire Answer [...] Mass Index 32.81 05/12/2024 5:31 PM CDT documented in this encounter Medications [...] constipation 01/22/2024 traZODone (DESYREL) 50 MG tabletIndications:Insom eelna, unspecified type Take 2 tablets (100 mg) by mouth At Bedtime 180 tablet 3 07/27/2021 vitamin B complex with vitamin C (VITAMIN B COMPLEX) tablet Take 1 tablet by mouth daily documented as of this encounter ED Notes * Jodie Ferguson RN - 05/12/2024 5:29 PM CDT Patient was seen over the weekend for headaches, unsteady gait, fatigue. Patient has a hx of a stroke in December but was found to have no new strokes over the weekend. Patient states she has had blurred vision along with continued headaches, unsteady gait and fatigue. Triage Assessment (Adult) Row Name 05/12/24 1729 Triage Assessment Airway WDL WDL Respiratory WDL Respiratory WDL WDL Skin Circulation/Temperature WDL Skin Circulation/Temperature WDL WDL Cardiac WDL Cardiac WDL WDL Peripheral/Neurovascular WDL Peripheral Neurovascular WDL WDL Cognitive/Neuro/Behavioral WDL Cognitive/Neuro/Behavioral WDL WDL documented in this encounter Plan of Treatment Upcoming Encounters Date Type Department Care Team (Late st Contact Info) Description 05/26/2024 8:30 AM CDT Office Visit [facility] [address] [place] [phone] Denise Woodson Ra, STRUCTURAL WORKER HEALTH SCIENCES PROGRAM COORDINATOR [address] [place] [address] 06/08/2024 8:30 AM CDT Office Visit [facility] [address] [place] [address] Deinse Woodson Ra, STRUCTURAL WORKER HEALTH SCIENCES PROGRAM COORDINATOR [address] [place] [address] documented as of this encounter [...] Mental Health weekly - PT, OT and SLITTER CREASER SLOTTER OPERATOR - PCP appointment 05/26/24 & 06/08/24 - Stroke Neurology Dr. Hoyos 04/14/24 #[phone] - Epilepsy Neurology Dr. Barcenas 05/05/24 follow up recommended in 2 months: 07/05/24 TBD. #[phone] - Vascular Dr. Zambrano 05/01/24 - follow up recommended in 6 months: 11/11/24 TBD #[phone]. - MTM if covered by insurance TBD [...] clinic with 24/7 after hours services available. Steam Shovel Runner will remain available as needed. documented as of this encounter Visit Diagnoses Not on filedocumented in this encounter Additional Health Concerns Active Problems Noted Date Diagnosed Date Increased risk of re-admission 02/18/2024 Assessment Noted Time PHQ-9 Depression Total Score: 5 03/17/20 24 9:45 AM CDT documented as of this encounter Care Teams Bevel Face Stoner And Polisher Relationship Specialty Start Date End Date Winston Villatoro OD [facility] [address] [place] [address] PCP - Ophthalmology Ophthalmology 02/11/13 Denise Woodson Ra, APRN HEALTH SCIENCES PROGRAM COORDINATOR [address] [place] [address] PCP - General Family Practice 09/21/20 Denise Woodson Ra, APRN HEALTH SCIENCES PROGRAM COORDINATOR [address] [place] [address] Assigned PCP 07/17/20 Usha Simon APRN HEALTH SCIENCES PROGRAM COORDINATOR [address] [address] Nurse Practitioner Neurological Surgery 01/24/24 Dangelo Salinas MD [address] [place], [place] [id number] Neurology 01/27/24 Anastasia Stearns, RN Lead Steam Shovel Runner 02/06/24 Germaine Lopez, W Community Health Worker Primary Care - CC 02/18/24 Lisa Zambrano MD [address] [place] [id number] Assigned Heart and Vascular Provider 05/08/24 Raul Hoyos MD [address] [address] Assigned Neuroscience Provider 05/08/24 documented as of this encounter
--- OUTSIDE RECORDS SUMMARY | 2024-05-14 11:57 | XMS_ITS | Encounter Summary ---
Author Organization [facility] Address [address] [place] [address] Care Team Providers Care Probation Manager Name Role Phone ShaunaWinston OD Unavailable [phone] Denise Woodson Ra, APRN WORKSITE WELLNESS PRACTITIONER Unavailable [phone] Denise Woodson Ra, APRN WORKSITE WELLNESS PRACTITIONER Primary Care Provid er Usha Simon APRN WORKSITE WELLNESS PRACTITIONER Unavailable [phone] Dangelo Salinas MD Unavailable Anastasia Stearns RN Unavailable Germaine Lopez CHW Unavailable Robin Zepeda MD Unavailable Lisa Zambrano MD Unavailable [phone] Raul Hoyos MD Unavailable Encounter Details Date Type Department Care Team (Late st Contact Info) Description 05/06/2024 MyC Medical Advice [facility] Epilepsy Care [address], [address] [place] [address] Rohit Barcenas MD [address] [place] [address] [address] [place] [address] Social History Tobacco Use Types [...] Never 02/28/2024 How often do you attend anabaptist or caodaism serv ices? Never 02/28/2024 Do you belong to any clubs o r organizations such as anabaptist groups, unions, fraternal or athletic groups, or [...] Answer Date Recorded PHQ-2 Score 2 05/05/2024 [facility] - Occupational Stress Questionnaire [...] encounter Miscellaneous Notes * Telephone Encounter - Dillan Streeter RN - 05/08/2024 4:12 PM CDT Per I would not recommend for her to stay long-term on Keppra, given the nature of her depression, anxiety and PTSD. She should start on oxcarbazepine as soon as possible. Message sent to patient documented in this encounter Plan of Treatment Upcoming Encounters Date Type Department Care Team (Late st Contact Info) Description 05/26/2024 8:30 AM CDT Office Visit [facility] [address] [place] [address] Denise Woodson Ra, BARREL FILLER WORKSITE WELLNESS PRACTITIONER [address] [address] [address] 06/08/2024 8:30 AM CDT Office Visit [facility] [place] [address] [address] [phone] Denise Woodson , BARREL FILLER WORKSITE WELLNESS PRACTITIONER [address] [place] [address] documented as of this encounter Goals Goal [...] Mental Health weekly - PT, OT and DENTAL TECHNICIAN - PCP appointment 05/26/24 & 06/08/24 - Stroke Neurology Dr. Hoyos 04/14/24 #[phone] - Epilepsy Neurology Dr. Barcenas 05/05/24 follow up recommended in 2 months: 07/05/24 TBD. #[phone] - Vascular Dr. Zambrano 05/01/24 - follow up recommended in 6 months: 11/11/24 TBD #[phone]. - MTM if covered by insurance TBD [...] clinic with 24/7 after hours services available. Galvanometer Assembler will remain available as needed. documented as of this encounter Visit Diagnoses Not on filedocumented in this encounter Additional Health Concerns Active Problems Noted Date Diagnosed Date Increased risk of re-admission 02/18/2024 Assessment Noted Time PHQ-9 Depression Total Score: 5 03/17/20 24 9:45 AM CDT documented as of this encounter Care Teams Probation Manager Relationship Specialty Start Date End Date Winston Villatoro OD [facility] [place] [address] [place] [address] PCP - Ophthalmology Ophthalmology 02/11/13 Denise Woodson Ra, BARREL FILLER WORKSITE WELLNESS PRACTITIONER [address] [place] [address] PCP - General Family Practice 09/21/20 Denise Woodson Ra, BARREL FILLER WORKSITE WELLNESS PRACTITIONER [address] [address] [facility] [address] Assigned PCP 07/17/20 Usha Simon APRN WORKSITE WELLNESS PRACTITIONER [address] [place] [address] Nurse Practitioner Neurological Surgery 01/24/24 Dangelo Salinas MD [address] [place] [address] Neurology 01/27/24 Anastasia Stearns, RN Lead Galvanometer Assembler 02/06/24 Germaine Lopez, CHW Community Health Worker Primary Care - CC 02/18/24 Robin Zepeda MD [address] [address] Assigned Neuroscience Provider 03/08/24 05/07/24 Lisa Zambrano MD [address] [place] [address] Assigned Heart and Vascular Provider 05/08/24 Raul Hoyos MD 909 [facility] [id number] [place], [place] [address] Assigned Neuroscience Provider 05/08/24 documented as of this encounter
--- OUTSIDE RECORDS SUMMARY | 2024-05-14 11:58 | XMS_ITS | Encounter Summary ---
Author Organization [facility] Address [address] [place] [address] Care Team Providers Care Clerk General Name Role Phone ShaunaWinston OD Unavailable [phone] Denise Woodson Ra, APRN NAIL EXPERT Unavailable [phone] Denise Woodson Ra, APRN NAIL EXPERT Primary Care Provid er Usha Simon APRN NAIL EXPERT Unavailable [phone] Dangelo Salinas MD Unavailable Anastasia Stearns RN Unavailable [phone] Germaine Lopez CHW Unavailable [phone] Robin Zepeda MD Unavailable [phone] Encounter Details Date Type Department Care Team [...] How often do you attend tenriism or rastafarian serv ices? Never 02/28/2024 Do [...] Answer Date Recorded PHQ-2 Score 1 04/14/2024 [facility] ional Health - Occupational [...] 8:30 AM CDT [facility] [address] [place] [phone] Denise Woodson Ra, [employer]S AND HUMANITIES CHAIR NAIL EXPERT [address] [place], [place] [phone] 06/08/2024 8:30 AM CDT Office Visit [facility] [place] [address] [place] [address] Denise Woodson Ra, BARRERA NAIL EXPERT [address] [place], [place] [phone] documented as of this encounter Goals Goal [...] Mental Health weekly - PT, OT and RUBY ON RAILS ENGINEER - PCP appointment 05/26/24 & 06/08/24 - Stroke Neurology Dr. Hoyos 04/14/24 #[phone] - Epilepsy Neurology Dr. Barcenas 05/05/24 follow up recommended in 2 months: 07/05/24 TBD. #[phone] - Vascular Dr. Zambrano 05/01/24 - follow up recommended in 6 months: 11/11/24 TBD #[phone]. - MTM if covered by insurance TBD [...] clinic with 08/04 after hours services available. Lithographer Apprentice will remain available as needed. documented as of this encounter Visit Diagnoses Not on filedocumented in this encounter Additional Health Concerns Active Problems Noted Date Diagnosed Date Increased risk of re-admission 02/18/2024 Assessment Noted Time PHQ-9 Depression Total Score: 5 03/17/20 9:45 AM CDT documented as of this encounter Care Teams Clerk General Relationship Specialty Start Date End Date Winston Villatoro, OD [facility] [address] [place] [address] PCP - Ophthalmology Ophthalmology 02/11/13 Denise Woodson Ra, APRN NAIL EXPERT [address] [address] [address] PCP - General Family Practice 09/21/20 Denise Woodson Ra, APRN NAIL EXPERT [address] [address] [address] Assigned PCP 07/17/20 Usha Simon APRN NAIL EXPERT 909 [facility] [place] [address] Nurse Practitioner Neurological Surgery 01/24/24 Dangelo Salinas MD [address] [place] [address] Neurology 01/27/24 Anastasia Stearns, RN Lead Lithographer Apprentice 02/06/24 Germaine Lopez, W Community Health Worker Primary Care - CC 02/18/24 Robin Zepeda MD 909 [facility] [place] [address] Assigned Neuroscience Provider 03/08/24 05/07/24 documented as of this encounter
--- OUTSIDE RECORDS SUMMARY | 2024-05-14 11:58 | XMS_ITS | Encounter Summary ---
Author Organization [facility] Address [address] [place] [address]. [place] [address] Care Team Providers Care Cigar Packing Examiner Name Role Phone Winston Villatoro OD Unavailable [phone] Denise Woodson Ra, APRN WOODS OVERSEER Unavailable + [phone] Denise Woodson Ra, APRN WOODS OVERSEER Primary Care Provid er Usha Simon APRN WOODS OVERSEER Unavailable Dangelo Salinas MD Unavailable Anastasia Stearns RN Unavailable Germaine Lopez CHW Unavailable Robin Zepeda MD Unavailable [phone] Reason for Visit * Reason Comments Medication Refill Encounter Details Date Type Department Care Team (Late st Contact Info) Description 04/27/2024 [facility] [address] [place] [address] Denise Woodson Ra, APRN WOODS OVERSEER [address] [place] [address] Medication Refill Social History Tobacco [...] How often do you attend baptism or voodoo serv ices? Never 02/28/2024 Do [...] Answer Date Recorded PHQ-2 Score 1 04/14/2024 [facility] - [...] Description 05/26/2024 8:30 AM CDT Office Visit [facility] [address] [place] [phone] Denise Woodson Ra, APRN WOODS OVERSEER [address] [facility] [place] [address] 06/08/2024 8:30 AM CDT Office Visit [facility] [address] [place] [address] Denise Woodson Ra, APRN WOODS OVERSEER [address] [facility], [place] [id number] documented as of this encounter Goals Goal [...] Mental Health weekly - PT, OT and SUSPENDER MAKER - PCP appointment 05/26/24 & 06/08/24 - Stroke Neurology Dr. Hoyos 04/14/24 #[phone] - Epilepsy Neurology Dr. Barcenas 05/05/24 follow up recommended in 2 months: 07/05/24 TBD. #[phone] - Vascular Dr. Zambrano 05/01/24 - follow up recommended in 6 months: 11/11/24 TBD #[phone]. - MTM if covered by insurance TBD [...] clinic with 24/7 after hours services available. Tire Mold Engraver will remain available as needed. documented as of this encounter Visit Diagnoses Diagnosis History of seizure documented in this encounter Additional Health Concerns Active Problems Noted Date Diagnosed Date Increased risk of re-admission 02/18/2024 Assessment Noted Time PHQ-9 Depression Total Score: 5 03/17/20 24 9:45 AM CDT documented as of this encounter Care Teams Cigar Packing Examiner Relationship Specialty Start Date End Date Winston Villatoro OD [facility] [address] [facility] [address] [place] [address] PCP - Ophthalmology Ophthalmology 02/11/13 Denise Woodson Ra, APRN WOODS OVERSEER [address] [place] [address] PCP - General Family Practice 09/21/20 Denise Woodson Ra, APRN WOODS OVERSEER [address] [place] [address] Assigned PCP 07/17/20 Usha Simon APRN WOODS OVERSEER 909 [facility] [place] [address] Nurse Practitioner Neurological Surgery 01/24/24 Dangelo Salinas MD [address] [place] [address] Neurology 01/27/24 Anastasia Stearns, RN Lead Tire Mold Engraver 02/06/24 Germaine Lopez, W Community Health Worker Primary Care - CC 02/18/24 Robin Zepeda MD 909 [facility] [place], [place] [address] Assigned Neuroscience Provider 03/08/24 05/07/24 documented as of this encounter
--- OUTSIDE RECORDS SUMMARY | 2024-05-14 11:58 | XMS_ITS | Encounter Summary ---
Author Organization [place] Address [address] [place] [address] Care Team Providers Care Airworthiness Safety Inspector Name Role Phone ShaunaWinston OD Unavailable [phone] Denise Woodson Ra, APRN LEAD SOFTWARE DEVELOPER Unavailable [phone] Denise Woodson Ra, APRN LEAD SOFTWARE DEVELOPER Primary Care Provid er Usha Simon APRN LEAD SOFTWARE DEVELOPER Unavailable [phone] Dangelo Salinas MD Unavailable Anastasia Stearns RN Unavailable [phone] Germaine Lopez CHW Unavailable Robin Zepeda MD Unavailable [phone] Encounter Details Date Type Department Care Team [...] How often do you attend buddhist or protestant serv ices? Never 02/28/2024 Do [...] Description 05/26/2024 8:30 AM CDT [facility] [address] [place] [phone] Denise Woodson Ra, MANAGER REQUIREMENTS LEAD SOFTWARE DEVELOPER [address] [place], [place] [address] 06/08/2024 8:30 AM CDT Office Visit [facility] [address] [place] [address] Denise Woodson Ra, BARRERA LEAD SOFTWARE DEVELOPER [address] [place], [place] [address] documented as of this encounter Goals Goal [...] Mental Health weekly - PT, OT and ROPING TENDER - PCP appointment 05/26/24 & 06/08/24 - Stroke Neurology Dr. Hoyos 04/14/24 #[phone] - Epilepsy Neurology Dr. Barcenas 05/05/24 follow up recommended in 2 months: 07/05/24 TBD. #[phone] - Vascular Dr. Zambrano 05/01/24 - follow up recommended in 6 months: 11/11/24 TBD #[phone]. - MTM if covered by insurance TBD [...] clinic with 08/04 after hours services available. Hooking Machine Operator will remain available as needed. documented as of this encounter Visit Diagnoses Not on filedocumented in this encounter Additional Health Concerns Active Problems Noted Date Diagnosed Date Increased risk of re-admission 02/18/2024 Assessment Noted Time PHQ-9 Depression Total Score: 5 03/17/20 9:45 AM CDT documented as of this encounter Care Teams Airworthiness Safety Inspector Relationship Specialty Start Date End Date Winston Villatoro, OD [facility] [address] [place] [address] PCP - Ophthalmology Ophthalmology 02/11/13 Denise Woodson Ra, APRN LEAD SOFTWARE DEVELOPER [address] [place] [address] PCP - General Family Practice 09/21/20 Denise Woodson Ra, APRN LEAD SOFTWARE DEVELOPER [address] [place] [address] Assigned PCP 07/17/20 Usha Simon APRN LEAD SOFTWARE DEVELOPER 909 [facility] [place] [address] Nurse Practitioner Neurological Surgery 01/24/24 Dangelo Salinas MD [address] [place] [address] Neurology 01/27/24 Anastasia Stearns, RN Lead Hooking Machine Operator 02/06/24 Germaine Lopez, W Community Health Worker Primary Care - CC 02/18/24 Robin Zepeda MD 909 [facility] [place] [address] Assigned Neuroscience Provider 03/08/24 05/07/24 documented as of this encounter
--- OUTSIDE RECORDS SUMMARY | 2024-05-14 11:58 | XMS_ITS | Encounter Summary ---
Author Organization [place] Address [address] [place] [address]. [place] [address] Care Team Providers Care Electronic Resources Librarian Name Role Phone Winston Villatoro OD Unavailable [phone] Denise Woodson Ra, APRN NITROGLYCERIN NEUTRALIZER Unavailable + [phone] Denise Woodson Ra DRILLER PORTABLE NITROGLYCERIN NEUTRALIZER Primary Care Provid er Usha Simon APRN NITROGLYCERIN NEUTRALIZER Unavailable Dangelo Salinas MD Unavailable Anastasia Stearns RN Unavailable Germaine Lopez CHW Unavailable Robin Zepeda MD Unavailable Reason for Visit * Reason Comments Medication Refill Encounter Details Date Type Department Care Team (Late st Contact Info) Description 04/30/2024 Refill [facility] [address] [place] [address] Denise Woodson Ra, APRN NITROGLYCERIN NEUTRALIZER [address] [place] [address] Medication Refill Social History Tobacco [...] Never 02/28/2024 How often do you attend spiritism or latter-day serv ices? Never 02/28/2024 Do you belong to any clubs o r organizations such as spiritism groups, unions, fraternal or athletic groups, or [...] Answer Date Recorded PHQ-2 Score 1 04/14/2024 [facility] - [...] Description 05/26/2024 8:30 AM CDT [facility] [address] [facility] [place] [address] Denise Woodson Ra, DRILLER PORTABLE NITROGLYCERIN NEUTRALIZER [address] [place] [id number] 06/08/2024 8:30 AM CDT [facility] [address] [facility] [place] [address] Denise Woodson Ra, DRILLER PORTABLE NITROGLYCERIN NEUTRALIZER [address] [place] [id number] documented as of this encounter Goals Goal [...] Mental Health weekly - PT, OT and ENTRY LEVEL FINANCE - PCP appointment 05/26/24 & 06/08/24 - Stroke Neurology Dr. Hoyos 04/14/24 #[phone] - Epilepsy Neurology Dr. Barcenas 05/05/24 follow up recommended in 2 months: 07/05/24 TBD. #[phone] - Vascular Dr. Zambrano 05/01/24 - follow up recommended in 6 months: 11/11/24 TBD #[phone]. - MTM if covered by insurance TBD [...] clinic with 24/7 after hours services available. Accounts Receivable Associate will remain available as needed. documented as of this encounter Visit Diagnoses Diagnosis History of seizure documented in this encounter Additional Health Concerns Active Problems Noted Date Diagnosed Date Increased risk of re-admission 02/18/2024 Assessment Noted Time PHQ-9 Depression Total Score: 5 03/17/20 24 9:45 AM CDT documented as of this encounter Care Teams Electronic Resources Librarian Relationship Specialty Start Date End Date Winston Villatoro OD [facility] [place] [address] [place] [address] PCP - Ophthalmology Ophthalmology 02/11/13 Denise Woodson Ra, APRN NITROGLYCERIN NEUTRALIZER [address] [place], [place] [address] PCP - General Family Practice 09/21/20 Denise Woodson Ra, APRN NITROGLYCERIN NEUTRALIZER [address] [place] [address] Assigned PCP 07/17/20 Usha Simon APRN NITROGLYCERIN NEUTRALIZER [address] [place] [address] Nurse Practitioner Neurological Surgery 01/24/24 Dangelo Salinas MD [address] [place] [address] Neurology 01/27/24 Anastasia Stearns, RN Lead Accounts Receivable Associate 02/06/24 Germaine Lopez, W Community Health Worker Primary Care - CC 02/18/24 Robin Zepeda MD [address] [place] [address] Assigned Neuroscience Provider 03/08/24 05/07/24 documented as of this encounter
--- OUTSIDE RECORDS SUMMARY | 2024-05-14 11:58 | XMS_ITS | Encounter Summary ---
Author Organization [facility] Address [address] [place] [address]. [place] [address] Care Team Providers Care Regulatory Compliance Coordinator Name Role Phone Winston Villatoro OD Unavailable [phone] Denise Woodson Ra, APRN SPACE CONTROL AGENT Unavailable + [phone] Denise Woodson Ra, APRN SPACE CONTROL AGENT Primary Care Provid er Usha Simon APRN SPACE CONTROL AGENT Unavailable [phone] Dangelo Salinas MD Unavailable Anastasia Stearns RN Unavailable Germaine Lopez CHW Unavailable [phone] Robin Zepeda MD Unavailable Encounter Details Date Type Department Care Team (Late st Contact Info) Description 04/08/2024 [facility] [address] [place] [address] Denise Woodson Ra, APRN SPACE CONTROL AGENT [address] [place] [address] Social History Tobacco Use Types [...] Never 02/28/2024 How often do you attend zoroastrianism or scientologist serv ices? Never 02/28/2024 Do you belong to any clubs o r organizations such as zoroastrianism groups, unions, fraternal or athletic groups, or [...] Answer Date Recorded PHQ-2 Score 1 04/14/2024 [facility] - Occupational Stress Questionnaire Answer Date [...] CDT Signed. Faxed. Mailed. Qing Cardona Lead Assessment Services Manager [facility] Phoebe Gross * Telephone Encounter - Qing Copeland - 04/08/2024 1:42 PM CDT Placed form in provider's basket for review and signature. Qing Copeland Lead Assessment Services Manager [facility] Phoebe Gross * Telephone Encounter - Breana [...] Mail Is this the correct address?: Yes [address] [address] and Patient Notified form requests are processed in 5-7 business days:Yes Could we [facility] this information [facility] you [facility] or would you prefer to receive a phone call?: Patient would prefer a phone call Okay to leave a detailed message?: Yes at Cell number on file: Telephone Information: Breana Howard Patient Rep. documented in this encounter Plan of Treatment Upcoming Encounters Date Type Department Care Team ([facility] st Contact Info) Description 05/26/2024 8:30 AM CDT Office Visit [facility] [address] [place] [phone] Denise Woodson Ra, DESIGN ENGINEER AGRICULTURAL EQUIPMENT SPACE CONTROL AGENT [address] [place], [place] [id number] 06/08/2024 8:30 AM CDT [facility] [address] [place] [phone] Denise Woodson Ra, APRN SPACE CONTROL AGENT [address] [place], [place] [address] documented as of this encounter Goals Goal [...] Mental Health weekly - PT, OT and CLINICAL PROGRAM COORDINATOR - PCP appointment 05/26/24 & 06/08/24 - Stroke Neurology Dr. Hoyos 04/14/24 #[phone] - Epilepsy Neurology Dr. Barcenas 05/05/24 follow up recommended in 2 months: 07/05/24 TBD. #[phone] - Vascular Dr. Zambrano 05/01/24 - follow up recommended in 6 months: 11/11/24 TBD #[phone]. - MTM if covered by insurance TBD [...] clinic with 24/7 after hours services available. Biomass Power Plant Superintendent will remain available as needed. documented as of this encounter Visit Diagnoses Not on filedocumented in this encounter Additional Health Concerns Active Problems Noted Date Diagnosed Date Increased risk of re-admission 02/18/2024 Assessment Noted Time PHQ-9 Depression Total Score: 5 03/17/20 9:45 AM CDT documented as of this encounter Care Teams Regulatory Compliance Coordinator Relationship Specialty Start Date End Date Winston Villatoro OD [facility] [place] [address] [place] [address] PCP - Ophthalmology Ophthalmology 02/11/13 Denise Woodson Ra, APRN SPACE CONTROL AGENT [address] [place] [address] PCP - General Family Practice 09/21/20 Denise Woodson Ra, APRN SPACE CONTROL AGENT [address] [place] [address] Assigned PCP 07/17/20 Usha Simon APRN SPACE CONTROL AGENT [address] [place], [place] [address] [address] Nurse Practitioner Neurological Surgery 01/24/24 Dangelo Salinas MD [address] [place] [address] Neurology 01/27/24 Anastasia Stearns, RN Lead Biomass Power Plant Superintendent 02/06/24 Germaine Lopez, [facility] Community Health Worker Primary Care - CC 02/18/24 Robin Zepeda MD 909 [facility] [place] [address] Assigned Neuroscience Provider 03/08/24 05/07/24 documented as of this encounter
--- OUTSIDE RECORDS SUMMARY | 2024-05-14 11:58 | XMS_ITS | Encounter Summary ---
Author Organization [place] Address [address] [place] [address] Care Team Providers Care Residential Leasing Agent Name Role Phone ShaunaWinston OD Unavailable [phone] Denise Woodson Ra, APRN STEREO EQUIPMENT INSTALLER Unavailable [phone] Denise Woodson Ra, APRN STEREO EQUIPMENT INSTALLER Primary Care Provid er Usha Simon APRN STEREO EQUIPMENT INSTALLER Unavailable [phone] Dangelo Salinas MD Unavailable Anastasia Stearns RN Unavailable [phone] Germaine Lopez CHW Unavailable [phone] Robin Zepeda MD Unavailable [phone] Encounter Details Date Type Department Care Team [...] Never 02/28/2024 How often do you attend scientology or buddhism serv ices? Never 02/28/2024 Do you belong [...] Answer Date Recorded PHQ-2 Score 0 03/17/2024 [facility] - Occupational [...] 05/26/2024 8:30 AM CDT [facility] [address] [place] [address] Denise Woodson Ra, PRINCIPAL WEB DEVELOPER STEREO EQUIPMENT INSTALLER [address] [place], [place] [address] 06/08/2024 8:30 AM CDT Office Visit [facility] [address] [place] [address] Denise Woodson Ra, BARRERA STEREO EQUIPMENT INSTALLER [address] [place], [place] [address] documented as of this encounter Goals Goal [...] Mental Health weekly - PT, OT and ARTIFICIAL BREEDING RANCH SUPERVISOR - PCP appointment 05/26/24 & 06/08/24 - Stroke Neurology Dr. Hoyos 04/14/24 #[phone] - Epilepsy Neurology Dr. Barcenas 05/05/24 follow up recommended in 2 months: 07/05/24 TBD. #[phone] - Vascular Dr. Zambrano 05/01/24 - follow up recommended in 6 months: 11/11/24 TBD #[phone]. - MTM if covered by insurance TBD [...] clinic with 08/04 after hours services available. Emergency Spill Response Technician will remain available as needed. documented as of this encounter Visit Diagnoses Not on filedocumented in this encounter Additional Health Concerns Active Problems Noted Date Diagnosed Date Increased risk of re-admission 02/18/2024 Assessment Noted Time PHQ-9 Depression Total Score: 5 03/17/20 9:45 AM CDT documented as of this encounter Care Teams Residential Leasing Agent Relationship Specialty Start Date End Date Winston Villatoro, OD [facility] [address] [place] [address] PCP - Ophthalmology Ophthalmology 02/11/13 Denise Woodson Ra, APRN STEREO EQUIPMENT INSTALLER [address] [place] [address] PCP - General Family Practice 09/21/20 Denise Woodson Ra, APRN STEREO EQUIPMENT INSTALLER [address] [place] [address] Assigned PCP 07/17/20 Usha Simon APRN STEREO EQUIPMENT INSTALLER 909 [facility] [place] [address] Nurse Practitioner Neurological Surgery 01/24/24 Dangelo Salinas MD [address] [place] [address] Neurology 01/27/24 Anastasia Stearns, RN Lead Emergency Spill Response Technician 02/06/24 Germaine Lopez, W Community Health Worker Primary Care - CC 02/18/24 Robin Zepeda MD 909 [facility] [place] [address] Assigned Neuroscience Provider 03/08/24 05/07/24 documented as of this encounter
--- OUTSIDE RECORDS SUMMARY | 2024-05-14 11:58 | XMS_ITS | Encounter Summary ---
Author Organization [place] Address [address] [place] [address] Care Team Providers Care Vulcanizer Operator Name Role Phone Winston Villatoro OD Unavailable [phone] Denise Woodson Ra, APRN MINE ENGINEERING SUPERINTENDENT Unavailable [phone] Denise Woodson Ra, APRN MINE ENGINEERING SUPERINTENDENT Primary Care Provid er Usha Simon APRN MINE ENGINEERING SUPERINTENDENT Unavailable [phone] Dangelo Salinas MD Unavailable Anastasia Stearns RN Unavailable [phone] Germaine Lopez CHW Unavailable [phone] Robin Zepeda MD Unavailable [phone] Reason for Visit * Rehab Therapy Integrated Services (Routine) - Authorized Specialty Diagnoses / Procedures Referred By Nila shah Referred To Contact Diagnoses Cerebrovascular accident (CVA), unspecified mechanism (H) [address] [address] Referral ID Status Reason Start Date Expiration Date V isits Requested Visits Authorized [id number] Authorized 09/16/2023 09/15/2024 365 365 Encounter Details Date Type Department Care Team (Late st Contact Info) Description 04/15/2024 8:45 AM CDT Therapy Visit [address] [address] Denise Woodson Ra, APRN MINE ENGINEERING SUPERINTENDENT [address] [place] [address] Isabel Beaulieu, OTJah [facility] [address] [place], [place] [address] [address] Cerebrovascular accident (CVA), unspecified mechanism (H) (Primary [...] How often do you attend jainism or restorationist serv ices? Never 02/28/2024 Do [...] Answer Date Recorded PHQ-2 Score 1 04/14/2024 [facility] - Occupational Stress [...] Description 05/26/2024 8:30 AM CDT Office Visit [facility] [address] [place] [address] Denise Woodson Ra, LIVESTOCK AGENT MINE ENGINEERING SUPERINTENDENT [address] [place] [address] 06/08/2024 8:30 AM CDT Office Visit [facility] [address] [place] [phone] Denise Woodson Ra, LIVESTOCK AGENT MINE ENGINEERING SUPERINTENDENT [address] [facility] [place] [address] documented as of this encounter Goals Goal [...] Mental Health weekly - PT, OT and CORRIDOR REDEVELOPMENT MANAGER - PCP appointment 05/26/24 & 06/08/24 - Stroke Neurology Dr. Hoyos 04/14/24 #[phone] - Epilepsy Neurology Dr. Barcenas 05/05/24 follow up recommended in 2 months: 07/05/24 TBD. #[phone] - Vascular Dr. Zambrano 05/01/24 - follow up recommended in 6 months: 11/11/24 TBD #[phone]. - MTM if covered by insurance TBD [...] clinic with 24/7 after hours services available. Patternmaker Grader will remain available as needed. documented as of this encounter Visit Diagnoses Diagnosis Cerebrovascular accident (CVA), unspecified mechanism (H)- Primary documented in this encounter Additional Health Concerns Active Problems Noted Date Diagnosed Date Increased risk of re-admission 02/18/2024 Assessment Noted Time PHQ-9 Depression Total Score: 5 03/17/20 24 9:45 AM CDT documented as of this encounter Care Teams Vulcanizer Operator Relationship Specialty Start Date End Date Winston Villatoro OD [facility] [place] [address] [place] [address] PCP - Ophthalmology Ophthalmology 02/11/13 Denise Woodson Ra LIVESTOCK AGENT MINE ENGINEERING SUPERINTENDENT [address] [place] [address] PCP - General Family Practice 09/21/20 Denise Woodson Ra LIVESTOCK AGENT MINE ENGINEERING SUPERINTENDENT [address] [facility] [facility] [place] [address] Assigned PCP 07/17/20 Usha Simon APRN MINE ENGINEERING SUPERINTENDENT [address] [address] Nurse Practitioner Neurological Surgery 01/24/24 Dangelo Salinas MD [address] [place] [address] Neurology 01/27/24 Anastasia Stearns, RN Lead Patternmaker Grader 02/06/24 Germaine Lopez, W Community Health Worker Primary Care - CC 02/18/24 Robin Zepeda MD [address] [address] Assigned Neuroscience Provider 03/08/24 05/07/24 documented as of this encounter
--- OUTSIDE RECORDS SUMMARY | 2024-05-14 11:58 | XMS_ITS | Encounter Summary ---
Author Organization [facility] Address [address] [place] [address]. [place] [address] Care Team Providers Care Vice President Safety Name Role Phone Winston Villatoro OD Unavailable [phone] Denise Woodson Ra, APRN HR LEADER Unavailable [phone]- [phone] Denise Woodson Ra, APRN HR LEADER Primary Care Provid er Usha Simon APRN HR LEADER Unavailable [phone] Dangelo Salinas MD Unavailable Anastasia Stearns RN Unavailable [phone] Germaine Lopez CHW Unavailable Robin Zepeda MD Unavailable Reason for Visit * Reason Onset Date Comments Referral 04/14/2024 Pt referred to [facility] by Dr. Raul Hoyos for fibromuscular dysplasia. Encounter Details Date Type Department Care Team (Late st Contact Info) Description 04/14/2024 Telephone [facility] [place] [address] [place] [address] Nurse, [facility] Referral (Pt referred to [facility] by Dr. Raul Hoyos for fibromuscular [...] often do you attend oriental orthodox or adventism serv ices? Never 02/28/2024 Do you belong [...] Answer Date Recorded PHQ-2 Score 1 04/14/2024 [facility] - Occupational Stress Questionnaire Answer [...] 04/14/2024 10:58 AM CDT Referral received via [employer] on 04/14/24. Pt referred to [facility] by Dr. Raul Hoyos for fibromuscular dysplasia. Routing to scheduling to coordinate the following: NEW VASCULAR PATIENT consult with Vascular Medicine Please schedule this at next available Appt note: Pt referred to [facility] by Dr. Raul Hoyos for fibromuscular dysplasia. documented in this encounter Plan of Treatment Upcoming Encounters Date Type Department Care Team (Late st Contact Info) Description 05/26/2024 8:30 AM CDT [facility] [address] [place] [phone] Denise Woodson Ra, BAIL BONDING AGENT HR LEADER [address] [place], [place] [id number] 06/08/2024 8:30 AM CDT Office Visit [facility] [place] [address] [place] [phone] Denise Woodson Ra, BARRERA HR LEADER [address] [facility] [place], [place] [id number] documented as of this encounter Goals Goal [...] Mental Health weekly - PT, OT and ACTUARIAL TECHNICIAN - PCP appointment 05/26/24 & 06/08/24 - Stroke Neurology Dr. Hoyos 04/14/24 #[phone] - Epilepsy Neurology Dr. Barcenas 05/05/24 follow up recommended in 2 months: 07/05/24 TBD. #[phone] - Vascular Dr. Zambrano 05/01/24 - follow up recommended in 6 months: 11/11/24 TBD #[phone]. - MTM if covered by insurance TBD [...] clinic with 24/ after hours services available. Criminal Justice Lawyer will remain available as needed. documented as of this encounter Visit Diagnoses Not on filedocumented in this encounter Additional Health Concerns Active Problems Noted Date Diagnosed Date Increased risk of re-admission 02/18/2024 Assessment Noted Time PHQ-9 Depression Total Score: 5 03/17/20 24 9:45 AM CDT documented as of this encounter Care Teams Vice President Safety Relationship Specialty Start Date End Date ShaunaWinston moralez OD [facility] [place] [address] [place] [address] PCP - Ophthalmology Ophthalmology 02/11/13 Denise Woodson Ra, APRN HR LEADER [address] [place] [address] PCP - General Family Practice 09/21/20 Denise Woodson Ra, APRN HR LEADER [address] [facility] [place] [address] Assigned PCP 07/17/20 Usha Simon APRN HR LEADER [address] [facility], [place] [address] Nurse Practitioner Neurological Surgery 01/24/24 Dangelo Salinas MD [address] [place], [place] [id number] Neurology 01/27/24 Anastasia Stearns, RN Lead Criminal Justice Lawyer 02/06/24 Germaine Lopez, CHW Community Health Worker Primary Care - CC 02/18/24 Robin Zepeda MD [address] [facility] [place] [address] Assigned Neuroscience Provider 03/08/24 05/07/24 documented as of this encounter
--- OUTSIDE RECORDS SUMMARY | 2024-05-14 11:58 | XMS_ITS | Encounter Summary ---
Author Organization [place] Address [address] [place] [address] Care Team Providers Care Keyboarding Teacher Name Role Phone ShaunaWinston OD Unavailable [phone] Denise Woodson Ra, APRN BROACHING MACHINE REPAIRER Unavailable [phone] Denise Woodson Ra, APRN BROACHING MACHINE REPAIRER Primary Care Provid er Usha Simon APRN BROACHING MACHINE REPAIRER Unavailable [phone] Dangelo Salinas MD Unavailable Anastasia Stearns RN Unavailable [phone] Germaine Lopez CHW Unavailable [phone] Robin Zepeda MD Unavailable [phone] Encounter Details Date Type Department Care Team [...] Never 02/28/2024 How often do you attend gnosticist or restorationism serv ices? Never 02/28/2024 Do you belong to any clubs o r organizations such as gnosticist groups, unions, fraternal or athletic groups, or [...] Answer Date Recorded PHQ-2 Score 1 04/14/2024 [facility] [...] 05/26/2024 8:30 AM CDT [facility] [address] [place] [phone] Denise Woodson Ra, SIDE PANEL PADDER BROACHING MACHINE REPAIRER [address] [place], [place] [id number] 06/08/2024 8:30 AM CDT Office Visit [facility] [address] [place] [address] Denise Woodson Ra, BARRERA BROACHING MACHINE REPAIRER [address] [place], [place] [phone] documented as of this encounter Goals Goal [...] Mental Health weekly - PT, OT and MEDICAL BILLING SPECIALIST - PCP appointment 05/26/24 & 06/08/24 - Stroke Neurology Dr. Hoyos 04/14/24 #[phone] - Epilepsy Neurology Dr. Barcenas 05/05/24 follow up recommended in 2 months: 07/05/24 TBD. #[phone] - Vascular Dr. Zambrano 05/01/24 - follow up recommended in 6 months: 11/11/24 TBD #[phone]. - MTM if covered by insurance TBD [...] clinic with 08/04 after hours services available. Lockstitch Lining Setter will remain available as needed. documented as of this encounter Visit Diagnoses Not on filedocumented in this encounter Additional Health Concerns Active Problems Noted Date Diagnosed Date Increased risk of re-admission 02/18/2024 Assessment Noted Time PHQ-9 Depression Total Score: 5 03/17/20 9:45 AM CDT documented as of this encounter Care Teams Keyboarding Teacher Relationship Specialty Start Date End Date Winston Villatoro, OD [facility] [address] [place] [address] PCP - Ophthalmology Ophthalmology 02/11/13 Denise Woodson Ra, APRN BROACHING MACHINE REPAIRER [address] [place] [address] PCP - General Family Practice 09/21/20 Denise Woodson Ra, APRN BROACHING MACHINE REPAIRER [address] [address] [place] [address] Assigned PCP 07/17/20 Usha Simon APRN BROACHING MACHINE REPAIRER [address] [facility] [address] Nurse Practitioner Neurological Surgery 01/24/24 Dangelo Salinas MD [address] [place] [address] Neurology 01/27/24 Anastasia Stearns, RN Lead Lockstitch Lining Setter 02/06/24 Germaine Lopez, W Community Health Worker Primary Care - CC 02/18/24 Robin Zepeda MD [address] [facility] [address] Assigned Neuroscience Provider 03/08/24 05/07/24 documented as of this encounter
--- OUTSIDE RECORDS SUMMARY | 2024-05-14 11:58 | XMS_ITS | Encounter Summary ---
Author Organization [place] Address [address] [place] [address] Care Team Providers Care Environmental Programs Specialist Name Role Phone ShaunaWinston OD Unavailable [phone] Denise Woodson Ra, APRN EXHIBITIONS AND COLLECTIONS MANAGER Unavailable + [phone] Denise Woodson Ra, APRN EXHIBITIONS AND COLLECTIONS MANAGER Primary Care Provid er Usha Simon APRN EXHIBITIONS AND COLLECTIONS MANAGER Unavailable + [phone] Dangelo Salinas MD Unavailable Anastasia Stearns RN Unavailable [phone] Germaine Lopez CHW Unavailable [phone] Robin Zepeda MD Unavailable [phone] Lisa Zambrano MD Unavailable [phone] Raul Hoyos MD Unavailable Encounter Details Date [...] How often do you attend voodoo or episcopal serv ices? Never 02/28/2024 Do you belong [...] Answer Date Recorded PHQ-2 Score 0 03/17/2024 [facility] - Occupational [...] AM CDT Office Visit [facility] [address] [place] [phone] Denise Woodson Ra, BARRERA EXHIBITIONS AND COLLECTIONS MANAGER [address] [place] [address] 06/08/2024 8:30 AM CDT [facility] [address] [place] [phone] Denise Woodson Ra, STEAK TENDERIZER MACHINE EXHIBITIONS AND COLLECTIONS MANAGER [address] [place], [place] [phone] documented as of this encounter Goals Goal Patient Goal Type Associated Problems Recent Progress Patient-Stated? Author I would like additional resources and support to manage my health and prevent future avoidable ED visits/hospital admissions Care Plan Increased risk of re-admission 10%(06/24/202 4 3:13 PM CDT) Anastasia Talamantes, RN Note: Barriers: diagnosis of multiple, chronic, complex medical conditions, provider availability - wait time to complete appointments, etc. Strengths: motivated, engaged in care coordination Patient expressed understanding of goal: yes Action steps to achieve this goal: 1. I will follow up with my providers as scheduled/recommended - Mental Health weekly - PT, OT and CASTING HOUSE WORKER - PCP appointment 05/26/24 & 06/08/24 - Stroke Neurology Dr. Hoyos 04/14/24 #[phone] - Epilepsy Neurology Dr. Barcenas 05/05/24 follow up recommended in 2 months: 07/05/24 TBD. #[phone] - Vascular Dr. Zambrano 05/01/24 - follow up recommended in 6 months: 11/11/24 TBD #[phone]. - MTM if covered by insurance TBD [...] clinic with 24/7 after hours services available. Android Ios Developer will remain available as needed. documented as of this encounter Visit Diagnoses Not on filedocumented in this encounter Additional Health Concerns Active Problems Noted Date Diagnosed Date Increased risk of re-admission 02/18/2024 Assessment Noted Time PHQ-9 Depression Total Score: 5 03/17/20 24 9:45 AM CDT documented as of this encounter Care Teams Environmental Programs Specialist Relationship Specialty Start Date End Date Winston Villatoro OD [facility] [place] [address] [place] [address] PCP - Ophthalmology Ophthalmology 02/11/13 Denise Woodson Ra, BARRERA EXHIBITIONS AND COLLECTIONS MANAGER [address] [place] [address] PCP - General Family Practice 09/21/20 Denise Woodson Ra STEAK TENDERIZER MACHINE EXHIBITIONS AND COLLECTIONS MANAGER [address] [place] [address] Assigned PCP 07/17/20 Usha Simon APRN EXHIBITIONS AND COLLECTIONS MANAGER [address] [address] Nurse Practitioner Neurological Surgery 01/24/24 Dangelo Salinas MD [address] [place] [address] Neurology 01/27/24 Anastasia Stearns, RN Lead Android Ios Developer 02/06/24 Germaine Lopez, [facility] Community Health Worker Primary Care - CC 02/18/24 Robin Zepeda MD [address] [address] Assigned Neuroscience Provider 03/08/24 05/07/24 Lisa Zambrano MD [address] [place] [address] Assigned Heart and Vascular Provider 05/08/24 Raul Hoyos MD [address] [address] Assigned Neuroscience Provider 05/08/24 documented as of this encounter
--- OUTSIDE RECORDS SUMMARY | 2024-05-14 11:58 | XMS_ITS | Encounter Summary ---
Author Organization [facility] Address [address] [place] [address] Care Team Providers Care Play Writer Name Role Phone Winston Villatoro OD Unavailable [phone] Denise Woodson Ra, APRN COLD STORAGE SUPERVISOR Unavailable + [phone] Denise Woodson Ra, APRN COLD STORAGE SUPERVISOR Primary Care Provid er Usha Simon APRN COLD STORAGE SUPERVISOR Unavailable Dangelo Salinas MD Unavailable Anastasia Stearns RN Unavailable [phone] Germaine Lopez CHW Unavailable [phone] Robin Zepeda MD Unavailable Reason for Referral * Rehab Therapy Physical Therapy (Routine: Next available opening) - Pending Review Specialty Diagnoses / Procedures Referred By Contlandon t Referred To Contact Diagnoses History of CVA (cerebrovascular accident) Raul Hoyos MD [address] [facility] [id number] [place] [address] Referral ID Status Reason Start Date Expiration Date V isits Requested Visits Authorized [id number] Pending Review 04/14/2024 04/14/2025 1 1 Question Answer Course of Action: Evaluation and Treatment Specialty Services: Per Associated Diagnosis Scheduling Instructions: [facility] will call you to coordinate your care as prescribed by your provider. If you don't hear from a sales representative raw fibers within 2 business days, please call . Additional Information: Stroke - shoulder R Comments Please be aware that coverage of these services is subject to the terms and limitations of your health insurance plan. Call member services at your health plan with any benefit or coverage questions. [facility] will call you to coordinate your care as prescribed by your provider. If you don't hear from a sales representative raw [employer] within 2 business days, please call . * Consultation (Routine: Next available opening) - Pending Review Specialty Diagnoses / Procedures Referred By Contlandon t Referred To Contact Cardiovascular Disease Diagnoses Fibromuscular dysplasia (H24) Raul Hoyos MD [address] [place] [address] [facility] Narda Cardona [address] [place] [address] Referral ID Status Reason Start Date Expiration Date V isits Requested Visits Authorized [id number] Pending Review 04/14/2024 04/14/2025 1 1 Question Answer Preferred Location: [facility] Scheduling Instructions: Please call to schedule your [...] Description 04/14/2024 9:30 AM CDT Virtual Visit [facility] [address] [place] [address] Raul Hoyos MD [address] [place] [address] History of CVA (cerebrovascular accident) (Primary [...] How often do you attend taoist or protestant serv ices? Never 02/28/2024 Do [...] this encounter Patient Instructions * Patient Instructions* Stacey Kelley RN - 04/14/2024 9:30 AM CDT Orders Placed This Encounter Procedures Vascular Medicine Referral Physical Therapy Bag Machine Operator Helper Referral No follow up with me - will follow up with PCP Stroke & Endovascular RN Care Coordinators: Stacey Kelley, RN, BSN Meche De La Cruz, RN, CNRN, SCRN If you have any questions please contact the RN Care Coordinators at [phone], option 1. Thank you for choosing [facility] for your health care needs. documented in this encounter Progress Notes * Raul Hoyos MD - 04/14/2024 9:30 AM CDT Virtual Visit Details Type of service: Video Visit Originating Location (pt. Location): Home Distant Location (provider location): Off-site Platform used for Video Visit: Bobby * Raul Hoyos MD - 04/14/2024 9:30 AM CDT Images from the original note were not included. [facility] [address] [address] April 14, 2024 Alcon Zamora [address] [facility] [address] TOTAL 46 Video visit: 9:33-9:59 = 26 [...] R shoulder pain. She has OT and TOOL AND GAUGE INSPECTOR. I re-ordered PT so she can get [...] Encounter Procedures Vascular Medicine Referral Physical Therapy Bag Machine Operator Helper Referral Brain MRI Impression: 1. No acute [...] 04/14/2024 9:30 AM CDT Current patient location: [address] [place] [address] Is the patient currently in the state of [place]? YES Visit mode:VIDEO If the visit is dropped, the patient can be reconnected by: TELEPHONE VISIT: Phone number: Telephone Information: Will anyone else be joining the visit? NO (If patient encounters technical issues they should call [phone] :[phone]) How would you like to obtain your [...] Description 05/26/2024 8:30 AM CDT Office Visit [address] [phone] Denise Woodson Ra, DIRECTOR OF PUBLIC HEALTH COLD STORAGE SUPERVISOR [address] [address] [place] [id number] 06/08/2024 8:30 AM CDT Office Visit [facility] [place] [address] [facility] [place] [phone] Denise Woodson Ra, DIRECTOR OF PUBLIC HEALTH COLD STORAGE SUPERVISOR [address] [place] [address] Scheduled Referrals Name Type Priority Associated Diagnoses Orde r Schedule Vascular Medicine Referral Referral Routine: Next available opening Fibromuscular dysplasia (H24) Expected: 05/15/2024 (Approximate), Expires: 04/14/2025 Physical Therapy Bag Machine Operator Helper Referral Referral Routine: Next available opening History [...] Mental Health weekly - PT, OT and TOOL AND GAUGE INSPECTOR - PCP appointment 05/26/24 & 06/08/24 - Stroke Neurology Dr. Hoyos 04/14/24 #[phone] - Epilepsy Neurology Dr. Barcenas 05/05/24 follow up recommended in 2 months: 07/05/24 TBD. #[phone] - Vascular Dr. Zambrano 05/01/24 - follow up recommended in 6 months: 11/11/24 TBD #[phone]. - MTM if covered by insurance TBD [...] clinic with 24/7 after hours services available. Emc Storage Architect will remain available as needed. documented as [...] documented as of this encounter Care Teams Play Writer Relationship Specialty Start Date End Date Winston Villatoro OD [facility] [address] [facility] [address] [place] [address] PCP - Ophthalmology Ophthalmology 02/11/13 Denise Woodson Ra, APRN COLD STORAGE SUPERVISOR [address] [place] [address] PCP - General Family Practice 09/21/20 Denise Woodson Ra, APRN COLD STORAGE SUPERVISOR [address] [place] [address] Assigned PCP 07/17/20 Usha Simon APRN COLD STORAGE SUPERVISOR [address] [facility] [address] Nurse Practitioner Neurological Surgery 01/24/24 Dangelo Salinas MD [address] [place] [address] Neurology 01/27/24 Anastasia Stearns, RN Lead Emc Storage Architect 02/06/24 Germaine Lopez, W Community Health Worker Primary Care - CC 02/18/24 Robin Zepeda MD [address] [facility], [place] [address] Assigned Neuroscience Provider 03/08/24 05/07/24 documented as of this encounter
--- OUTSIDE RECORDS SUMMARY | 2024-05-14 11:58 | XMS_ITS | Encounter Summary ---
Author Organization [place] Address [address] [place] [address] Care Team Providers Care Aquaculture Farmer Name Role Phone Winston Villatoro OD Unavailable [phone] Denise Woodson Ra, APRN FAMILY CENTERED SPECIALIST Unavailable [phone] Denise Woodson Ra, APRN FAMILY CENTERED SPECIALIST Primary Care Provid er Usha Simon APRN FAMILY CENTERED SPECIALIST Unavailable [phone] Dangelo Salinas MD Unavailable Anastasia Stearns RN Unavailable Germaine Lopez CHW Unavailable [phone] Robin Zepeda MD Unavailable [phone] Reason for Referral * Consultation (Routine: Next available opening) - Pending Review Specialty Diagnoses / Procedures Referred By Nila t Referred To Contact Genetics, Clinical Diagnoses Fibromuscular dysplasia (H24) ASD (atrial septal defect) EDS (Lizy-Danlos syndrome) Lisa Zambrano MD [address] [facility] [address] [place] [address] Referral ID Status Reason Start Date Expiration Date V isits Requested Visits Authorized [id number] Pending Review 05/01/2024 05/01/2025 1 1 Question Answer Reason for Referral: Cardiology Scheduling Instructions: [facility] will call you to coordinate your care as prescribed by your provider. If you don't hear from a insurance service representative within 2 business days, please call [phone]. Additional Information: carries Dx of EDS , [...] plan with any benefit or coverage questions. [facility] will call you to coordinate your care as prescribed by your provider. If you don't hear from a insurance service representative within 2 business days, please call [phone]. Reason for Visit * Reason Comments Consult Pt referred to [facility] b y Dr. Raul Hoyos for fibromuscular dysplasia. * Consultation (Routine: Next available opening) - Pending Review Specialty Diagnoses / Procedures Referred By Juhiac t Referred To Contact Cardiovascular Disease Diagnoses Fibromuscular dysplasia (H24) Raul Hoyos MD [address] [facility] [id number] [place] [address] Vascular Center [address] [place] [phone] Referral ID Status Reason Start Date Expiration Date V isits Requested Visits Authorized [id number] Pending Review 04/14/2024 04/14/2025 1 1 Encounter Details Date Type Department Care Team (Latest Contact Info) Description 05/01/2024 10:30 AM CDT Office Visit [facility] Kate [address] [place] [address] Lisa Zambrano MD [address] [place] [id number] Fibromuscular dysplasia (H24) ?? on cerbral angio Rt ICA dissection noted 12/2023 at [facility] subsequent head and neck CTA negtaive (Primary Dx); Hyperlipidemia LDL goal <70; ASD (atrial septal defect) amplatzer septal occluder- serial #[id number] ( 06/2006); Cerebrovascular accident (CVA), unspecified mechanism (H) 12/2023 ? 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 Never 02/28/2024 Do you belong to any clubs o r organizations such as sikhism groups, unions, fraternal or athletic groups, or [...] Answer Date Recorded PHQ-2 Score 1 04/14/2024 [place] of Occupat ional Health - Occupational Stress [...] in an abandoned building, in an overnight nursing home, or couch-surfing.) Yes 02/28/2024 Are you [...] Zambrano MD - 05/01/2024 10:30 AM CDT [facility] INITIAL VASCULAR MEDICINE CONSULT ( New Patient visit) PRIMARY HEALTH CARE PROVIDER: Denise Woodson Ra, WET WASH ASSEMBLER,FAMILY CENTERED SPECIALIST REFERRING HEALTH CARE PROVIDER; Raul Hoyos MD REASON FOR CONSULT: Evaluation and management of FMD? With recent history of right ICA dissection noted on cerebral angiogram December 2023. 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 She underwent COL3A1 testing at [facility] which was negative in 2018 She is new to me reviewed available extensive records and recent imaging studies in the [facility] and Care Everywhere and updated chart PAST [...] Past Surgical History: Procedure Laterality Date C PROGRAM EVALUATOR PROCEDURE DATE: vag del. 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 Employer: [employer] Tobacco Use Smoking status: Never Passive exposure: [...] 10 min Stress: Stress Concern Present (02/28/2024) [place] of Occupational Health - Occupational Stress Questionnaire Feeling of Stress : To some extent Social Connections: Socially Isolated (02/28/2024) Social Connection and Isolation Panel [NHANES] Frequency of Communication with Friends and Family: Once a week Frequency of Social Gatherings with Friends and Family: Never Attends Orthodox Services: Never Active Member of Clubs or [...] angio Rt ICA dissection noted 12/2023 at [facility] subsequent head and neck CTA negative X 2 , CTA of the chest abdomen pelvis negative for FMD in other arterial territories - Adult Genetics & Metabolism Marriage And Family Counselor Referral; Future 2. Hyperlipidemia LDL goal <70 3. ASD (atrial septal defect) amplatzer septal occluder- serial #[id number] ( 06/2006) - Adult Genetics & Metabolism Marriage And Family Counselor Referral; Future 4. Cerebrovascular accident (CVA), unspecified mechanism (H) 12/2023 ? 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 EDS (Lizy-Danlos syndrome) diagnosed at [facility] 2018 - Adult Genetics & Metabolism Marriage And Family Counselor Referral; Future Beighton score of 5 Recently noted ICA dissection and cerebral angiogram This is a very pleasant 48-year-old female with complex and complicated past medical and past surgical history including the left sigmoid dural aVF she underwent cerebral angiogram in December 2023 at [facility] unfortunately postprocedural stroke and noted right-sided ICA dissection and FMD changes. She underwent subsequent CT of head and neck x 2 which were negative for FMD . Subsequent CTA chest abdomen pelvis no FMD changes. She has a hyperextensibility of the joints with positive thumb sign and elbow sign. In 2018 she was diagnosed EDS at [facility]. COL3A1 test was negative. She has a 3 grownup children. No previous organ rupture or blood vessel rupture. History of ASD which was closed in 2005 at [facility]. She was also doing deep neck massages for DJD of the spine for some time Currently taking aspirin 162 mg daily and tolerating Currently followed by neurology/stroke service Given her unusual clinical situation of dural aVF, ASD, FMD changes, EDS features she will benefit getting genetic testing arrange a referral to [facility] Continue aspirin 162 mg daily with food [...] consultation This note was dictated by utilizing Corindus software Copy of this note to primary care physician and referring physician Lisa Zambrano MD,FAHA,FSVM,FNLA, FACP Vascular Medicine Clinical Hypertension Specialist Clinical Lipidologist documented in this encounter Plan of Treatment Upcoming Encounters Date Type Department Care Team (Late st Contact Info) Description 05/26/2024 8:30 AM CDT Office Visit [facility] [address] [place] [address] Denise Woodson Ra, WET WASH ASSEMBLER FAMILY CENTERED SPECIALIST [address] [place], [place] [id number] 06/08/2024 8:30 AM CDT Office Visit [facility] [address] [place] [phone] Denise Woodson Ra, WET WASH ASSEMBLER FAMILY CENTERED SPECIALIST [address] [facility], [place] [id number] Scheduled Referrals Name Type Priority Associated Diagnoses Orde r Schedule Adult Genetics & Metabolism Marriage And Family Counselor Referral Referral Routine: Next available opening Fibromuscular dysplasia (H24) ?? 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 Hoyos 04/14/24 #[phone] - Epilepsy Neurology Dr. Barcenas 05/05/24 follow up recommended in 2 months: 07/05/24 TBD. #[phone] - Vascular Dr. Zambrano 05/01/24 - follow up recommended in 6 months: 11/11/24 TBD #[phone]. - MTM if covered by insurance TBD [...] clinic with 24/ after hours services available. Assistant Therapy Aide will remain available as needed. documented as of this encounter Visit Diagnoses Diagnosis Fibromuscular dysplasia (H24) ?? on cerbral angio Rt ICA dissection noted 12/2023 at [facility] subsequent head and neck CTA negtaive- Primary Other specified disorders of arteries and arterioles Hyperlipidemia LDL goal <70 Other and unspecified hyperlipidemia ASD (atrial septal defect) amplatzer septal occluder- serial #[id number] ( 06/2006) Ostium secundum type atrial septal defect Cerebrovascular accident (CVA), unspecified mechanism (H) 12/2023 ? 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 documented in this encounter Additional Health Concerns Active Problems Noted Date Diagnosed Date Increased risk of re-admission 02/18/2024 Assessment Noted Time PHQ-9 Depression Total Score: 5 03/17/20 9:45 AM CDT documented as of this encounter Care Teams Aquaculture Farmer Relationship Specialty Start Date End Date Winston Villatoro OD [facility] [place] [address] [place] [address] PCP - Ophthalmology Ophthalmology 02/11/13 Denise Woodson Ra, APRN FAMILY CENTERED SPECIALIST [address] [place] [place] [address] PCP - General Family Practice 09/21/20 Denise Woodson Ra, APRN FAMILY CENTERED SPECIALIST [address] [place] [address] Assigned PCP 07/17/20 Usha Simon APRN FAMILY CENTERED SPECIALIST [address] [place] [address]94145 Nurse Practitioner Neurological Surgery 01/24/24 Dangelo [place] MD [address] [place] [address] Neurology 01/27/24 Anastasia Stearns, RN Lead Assistant Therapy Aide 02/06/24 Germaine Lopez, W Community Health Worker Primary Care - CC 02/18/24 Robin Zepeda MD [address] [place] [address] Assigned Neuroscience Provider 03/08/24 05/07/24 documented as of this encounter
--- OUTSIDE RECORDS SUMMARY | 2024-05-14 11:58 | XMS_ITS | Encounter Summary ---
Author Organization [place] Address [address] [place] [address] Care Team Providers Care Lime Kiln Tender Name Role Phone Winston Villatoro OD Unavailable [phone] Denise Woodson Ra, APRN STRAPPER AND BUFFER Unavailable [phone] Denise Woodson Ra, APRN STRAPPER AND BUFFER Primary Care Provid er Usha Simon APRN STRAPPER AND BUFFER Unavailable [phone] Dangelo [place] MD Unavailable Anastasia Stearns RN Unavailable [phone] Germaine Lopez CHW Unavailable [phone] Robin Zepeda MD Unavailable [phone] Reason for Visit * Rehab Therapy Integrated Services (Routine) - Authorized Specialty Diagnoses / Procedures Referred By Nila shah Referred To Contact Diagnoses Cerebrovascular accident (CVA), unspecified mechanism (H) [address] [address] Referral ID Status Reason Start Date Expiration Date V isits Requested Visits Authorized [id number] Authorized 09/16/2023 09/15/2024 365 365 Encounter Details Date Type Department Care Team (Late st Contact Info) Description 04/15/2024 9:30 AM CDT Therapy Visit [address] [phone] Danya You, AMAIRANI [address] [place] [address] [address] [place] [address] Danya Restrepo, BOAT CAPTAIN Cognitive communication deficit (Primary Dx); Cerebrovascular accident [...] How often do you attend catholic or congregational serv ices? Never 02/28/2024 Do you belong [...] Answer Date Recorded PHQ-2 Score 1 04/14/2024 [facility] [place] of Occupat ional Health - Occupational Stress [...] Description 05/26/2024 8:30 AM CDT Office Visit [facility] [address] [place] [address] Denise Woodson Ra, POSTMASTER RELIEF [facility] [address] [place] [address] 06/08/2024 8:30 AM CDT [facility] [address] [place] [address] Denise Woodson Ra, POSTMASTER RELIEF STRAPPER AND BUFFER [address] [facility] [place], [place] [id number] documented as of this encounter Goals Goal [...] Mental Health weekly - PT, OT and BOAT CAPTAIN - PCP appointment 05/26/24 & 06/08/24 - Stroke Neurology Dr. Hoyos 04/14/24 #[phone] - Epilepsy Neurology Dr. Barcenas 05/05/24 follow up recommended in 2 months: 07/05/24 TBD. #[phone] - Vascular Dr. Zambrano 05/01/24 - follow up recommended in 6 months: 11/11/24 TBD #[phone]. - MTM if covered by insurance TBD [...] clinic with 24/7 after hours services available. Electroplating Technician will remain available as needed. documented as of this encounter Visit Diagnoses Diagnosis Cognitive communication deficit- Primary Cerebrovascular accident (CVA), unspecified mechanism (H) documented in this encounter Additional Health Concerns Active Problems Noted Date Diagnosed Date Increased risk of re-admission 02/18/2024 Assessment Noted Time PHQ-9 Depression Total Score: 5 03/17/20 24 9:45 AM CDT documented as of this encounter Care Teams Lime Kiln Tender Relationship Specialty Start Date End Date Shauna Winston Sae[facility]AMELIE [facility] [place] [address] [place] [address] PCP - Ophthalmology Ophthalmology 02/11/13 Denise Woodson Ra, APRN STRAPPER AND BUFFER [address] [place] [address] PCP - General Family Practice 09/21/20 Denise Woodson Ra, APRN STRAPPER AND BUFFER [address] [place] [address] Assigned PCP 07/17/20 Usha Simon APRN STRAPPER AND BUFFER [address] [address] Nurse Practitioner Neurological Surgery 01/24/24 Dangelo [place] MD [address] [place] [address] Neurology 01/27/24 Anastasia Stearns, RN Lead Electroplating Technician 02/06/24 Germaine Lopez, CHW Community Health Worker Primary Care - CC 02/18/24 Robin Zepeda MD [address] [address] Assigned Neuroscience Provider 03/08/24 05/07/24 documented as of this encounter
--- OUTSIDE RECORDS SUMMARY | 2024-05-14 11:58 | XMS_ITS | Encounter Summary ---
Author Organization [facility] Address [address] [place] [address]. [place] [address] Care Team Providers Care Lokie Driver Name Role Phone Winston Villatoro OD Unavailable [phone] Denise Woodson Ra, APRN GAME OPERATOR Unavailable [phone] Denise Woodson Ra, APRN GAME OPERATOR Primary Care Provid er Usha Simon APRN GAME OPERATOR Unavailable + [phone] Dangelo [place] MD Unavailable Anastasia Stearns RN Unavailable [phone] Germaine Lopez CHW Unavailable [phone] Robin Zepeda MD Unavailable [phone] Reason for Visit * Reason Comments Follow Up Encounter Details Date Type Department Care Team (Latest Contact Info) Description 04/13/2024 12:00 PM CDT Virtual Visit [facility] [address] [place] [address] Denise Woodson Ra, APRN GAME OPERATOR [address] [place] [address] Cerebrovascular accident (CVA), unspecified mechanism [...] How often do you attend restorationism or mandaeism serv ices? Never 02/28/2024 Do [...] Date Recorded PHQ-2 Score 1 04/14/2024 [facility] of Occupat ional Health - Occupational [...] encounter Progress Notes * Denise Woodson Ra, SUPERVISOR PATCHING GAME OPERATOR - 04/13/2024 12:00 PM CDT Alcon is a 48 year old who is being evaluated via a billable video visit. How would you like to obtain your AVS? MyChart If the video visit is dropped, the invitation should be resent by: Text to cell phone: [phone] Will anyone else be joining your video [...] Description 05/26/2024 8:30 AM CDT Office Visit [facility] [address] [place] [address] Denise oWodson Ra, APRN CNP [address] [place] [address] 06/08/2024 8:30 AM CDT [facility] [address] [place] [address] Denise Woodson Ra, SUPERVISOR PATCHING [facility] [address] [place] [address] documented as of this encounter Goals Goal [...] Mental Health weekly - PT, OT and LEAD SLOT TECHNICIAN - PCP appointment 05/26/24 & 06/08/24 - Stroke Neurology Dr. Hoyos 04/14/24 #[phone] - Epilepsy Neurology Dr. Barcenas 05/05/24 follow up recommended in 2 months: 07/05/24 TBD. #[phone] - Vascular Dr. Zambrano 05/01/24 - follow up recommended in 6 months: 11/11/24 TBD #[phone]. - MTM if covered by insurance TBD [...] clinic with 24/ after hours services available. Annual Giving Director will remain available as needed. documented as of this encounter Visit Diagnoses Diagnosis Cerebrovascular accident (CVA), unspecified mechanism (H)- Primary documented in this encounter Additional Health Concerns Active Problems Noted Date Diagnosed Date Increased risk of re-admission 02/18/2024 Assessment Noted Time PHQ-9 Depression Total Score: 5 03/17/20 9:45 AM CDT documented as of this encounter Care Teams Lokie Driver Relationship Specialty Start Date End Date Winston Villatoro OD [facility] [place] [address] [place] [address] PCP - Ophthalmology Ophthalmology 02/11/13 Denise Woodson Ra, APRN GAME OPERATOR [address] [place] [address] PCP - General Family Practice 09/21/20 Denise Woodson Ra, APRN GAME OPERATOR [address] [place] [address] Assigned PCP 07/17/20 Usha Simon APRN GAME OPERATOR [address] [place] [address] Nurse Practitioner Neurological Surgery 01/24/24 Dangelo [place] MD [address] [place] [address] Neurology 01/27/24 Anastasia Stearns, RN Lead Annual Giving Director 02/06/24 Germaine Lopez, W Community Health Worker Primary Care - CC 02/18/24 Robin Zepeda MD [address] [place] [address] Assigned Neuroscience Provider 03/08/24 05/07/24 documented as of this encounter
--- OUTSIDE RECORDS SUMMARY | 2024-05-14 11:58 | XMS_ITS | Encounter Summary ---
Author Organization [place] Address [address] [place] [address] Care Team Providers Care Fisherman Helper Name Role Phone ShaunaWinston OD Unavailable [phone] Denise Woodson Ra, APRN COMPONENT INSPECTOR Unavailable [phone] Denise Woodson Ra, APRN COMPONENT INSPECTOR Primary Care Provid er Usha Simon APRN COMPONENT INSPECTOR Unavailable [phone] Dangelo [place] MD Unavailable Anastasia Stearns RN Unavailable [phone] Germaine Lopez CHW Unavailable [phone] Robin Zepeda MD Unavailable [phone] Encounter Details Date Type Department Care Team [...] How often do you attend mandaen or congregation serv ices? Never 02/28/2024 Do you belong [...] Answer Date Recorded PHQ-2 Score 1 04/14/2024 [facility] of Occupat ional Health - Occupational [...] Description 05/26/2024 8:30 AM CDT [facility] [address] [place] [address] Denise Woodson Ra, WAREHOUSEMAN COMPONENT INSPECTOR [address] [place], [place] [id number] 06/08/2024 8:30 AM CDT Office Visit [facility] [address] [place] [address] Denise Woodson Ra, BARRERA COMPONENT INSPECTOR [address] [place], [place] [id number] documented as of this encounter Goals Goal [...] Mental Health weekly - PT, OT and BELT AND LINK ASSEMBLY SUPERVISOR - PCP appointment 05/26/24 & 06/08/24 - Stroke Neurology Dr. Hoyos 04/14/24 #[phone] - Epilepsy Neurology Dr. Barcenas 05/05/24 follow up recommended in 2 months: 07/05/24 TBD. #[phone] - Vascular Dr. Zambrano 05/01/24 - follow up recommended in 6 months: 11/11/24 TBD #[phone]. - MTM if covered by insurance TBD [...] clinic with 08/04 after hours services available. Evp Strategy will remain available as needed. documented as of this encounter Visit Diagnoses Not on filedocumented in this encounter Additional Health Concerns Active Problems Noted Date Diagnosed Date Increased risk of re-admission 02/18/2024 Assessment Noted Time PHQ-9 Depression Total Score: 5 03/17/20 9:45 AM CDT documented as of this encounter Care Teams Fisherman Helper Relationship Specialty Start Date End Date Winston Villatoro, OD [facility] [address] [place] [address] PCP - Ophthalmology Ophthalmology 02/11/13 Denise Woodson Ra, APRN COMPONENT INSPECTOR [address] [address] PCP - General Family Practice 09/21/20 eDnise Woodson Ra, APRN COMPONENT INSPECTOR [address] [address] [address] Assigned PCP 07/17/20 Usha Simon APRN COMPONENT INSPECTOR [address] [facility] [place] [address] Nurse Practitioner Neurological Surgery 01/24/24 Dangelo [place] MD [address] [place] [address] Neurology 01/27/24 Anastasia Stearns, RN Lead Evp Strategy 02/06/24 Germaine Lopez, W Community Health Worker Primary Care - CC 02/18/24 Robin Zepeda MD [address] [facility] [place] [address] Assigned Neuroscience Provider 03/08/24 05/07/24 documented as of this encounter
--- OUTSIDE RECORDS SUMMARY | 2024-05-14 11:58 | XMS_ITS | Encounter Summary ---
Author Organization [place] Address [address] [place] [address] Care Team Providers Care Rechecker Name Role Phone ShaunaWinston OD Unavailable [phone] Denise Woodson Ra, APRN OPTOMETRIC AIDE Unavailable [phone] Denise Woodson Ra, APRN OPTOMETRIC AIDE Primary Care Provid er Usha Simon APRN OPTOMETRIC AIDE Unavailable [phone] Dangelo Salinas MD Unavailable Anastasia Stearns RN Unavailable [phone] Germaine Lopez CHW Unavailable [phone] Robin Zepeda MD Unavailable [phone] Encounter Details Date Type Department Care Team [...] Never 02/28/2024 How often do you attend restoration or jain serv ices? Never 02/28/2024 Do you belong to any clubs o r organizations such as restoration groups, unions, fraternal or athletic groups, or [...] [facility] [address] [place] [phone] Denise Woodson Ra, REFRIGERATED NATIONAL TRUCK DRIVER OPTOMETRIC AIDE [address] [place], [place] 1813[address] 06/08/2024 8:30 AM CDT Office Visit [facility] [address] [place] [address] Denise Woodson Ra, BARRERA OPTOMETRIC AIDE [address] [place], [place] 7360668 documented as of this encounter Goals Goal [...] Mental Health weekly - PT, OT and HIRED WORKER - PCP appointment 05/26/24 & 06/08/24 - Stroke Neurology Dr. Hoyos 04/14/24 #[phone] - Epilepsy Neurology Dr. Barcenas 05/05/24 follow up recommended in 2 months: 07/05/24 TBD. #[phone] - Vascular Dr. Zambrano 05/01/24 - follow up recommended in 6 months: 11/11/24 TBD #[phone]. - MTM if covered by insurance TBD [...] clinic with 08/04 after hours services available. Cargoman will remain available as needed. documented as of this encounter Visit Diagnoses Not on filedocumented in this encounter Additional Health Concerns Active Problems Noted Date Diagnosed Date Increased risk of re-admission 02/18/2024 Assessment Noted Time PHQ-9 Depression Total Score: 5 03/17/20 9:45 AM CDT documented as of this encounter Care Teams Rechecker Relationship Specialty Start Date End Date Winston Villatoro, OD [facility] [address] [place] [address] PCP - Ophthalmology Ophthalmology 02/11/13 Denise Woodson Ra, APRN OPTOMETRIC AIDE [address] [place] [address] PCP - General Family Practice 09/21/20 Denise Woodson Ra, APRN OPTOMETRIC AIDE [address] [place] [address] Assigned PCP 07/17/20 Usha Simon APRN OPTOMETRIC AIDE [address] [facility] [address] Nurse Practitioner Neurological Surgery 01/24/24 Dangelo Salinas MD [address] [place] [address] Neurology 01/27/24 Anastasia Stearns, RN Lead Cargoman 02/06/24 Germaine Lopez, W Community Health Worker Primary Care - CC 02/18/24 Robin Zepeda MD [address] [facility] [place] [address] Assigned Neuroscience Provider 03/08/24 05/07/24 documented as of this encounter
--- OUTSIDE RECORDS SUMMARY | 2024-05-14 11:59 | XMS_ITS | Encounter Summary ---
Author Organization [place] Address [address] [place] [address]. [place] [address] Care Team Providers Care Netting Weaver Name Role Phone Winston Villatoro OD Unavailable [phone] Denise Woodson Ra, APRN SOLAR SALES AMBASSADOR Unavailable + [phone] Denise Woodson Ra FEATHER STITCHER SOLAR SALES AMBASSADOR Primary Care Provid er Usha Simon APRN SOLAR SALES AMBASSADOR Unavailable Dangelo Salinas MD Unavailable Anastasia Stearns RN Unavailable Germaine Lopez CHW Unavailable [phone] Robin Zepeda MD Unavailable Reason for Visit * Reason Comments Medication Refill Encounter Details Date Type Department Care Team (Late st Contact Info) Description 03/31/2024 Refill [facility] [address] [place] [address] Denise Woodson Ra, APRN SOLAR SALES AMBASSADOR [address] [place] [address] Medication Refill Social History Tobacco [...] Never 02/28/2024 How often do you attend yarsani or muslim serv ices? Never 02/28/2024 Do you belong to any clubs o r organizations such as yarsani groups, unions, fraternal or athletic groups, or [...] Answer Date Recorded PHQ-2 Score 0 03/17/2024 [facility] of Occupat [...] Description 05/26/2024 8:30 AM CDT Office Visit [facility] [address] [place] [address] Denise Woodson Ra, APRN SOLAR SALES AMBASSADOR [address] [place] [address] 06/08/2024 8:30 AM CDT [facility] [address] [place] [address] Denise Woodson Ra, APRN SOLAR SALES AMBASSADOR [address] [place] [address] documented as of this encounter Goals Goal [...] Mental Health weekly - PT, OT and FIELD MECHANIC - PCP appointment 05/26/24 & 06/08/24 - Stroke Neurology Dr. Hoyos 04/14/24 #[phone] - Epilepsy Neurology Dr. Barcenas 05/05/24 follow up recommended in 2 months: 07/05/24 TBD. #[phone] - Vascular Dr. Zambrano 05/01/24 - follow up recommended in 6 months: 11/11/24 TBD #[phone]. - MTM if covered by insurance TBD [...] clinic with 24/7 after hours services available. Mammography Supervisor will remain available as needed. documented as of this encounter Visit Diagnoses Diagnosis History of seizure documented in this encounter Additional Health Concerns Active Problems Noted Date Diagnosed Date Increased risk of re-admission 02/18/2024 Assessment Noted Time PHQ-9 Depression Total Score: 5 03/17/20 9:45 AM CDT documented as of this encounter Care Teams Netting Weaver Relationship Specialty Start Date End Date Winston Villatoro OD [facility] [address] [place] [address] PCP - Ophthalmology Ophthalmology 02/11/13 Denise Woodson Ra, FEATHER STITCHER SOLAR SALES AMBASSADOR [address] [place] [address] PCP - General Family Practice 09/21/20 Denise Woodson Ra, APRN SOLAR SALES AMBASSADOR [address] [address] [place] [address] Assigned PCP 07/17/20 Usha Simon APRN SOLAR SALES AMBASSADOR 909 [facility], [place] [address] Nurse Practitioner Neurological Surgery 01/24/24 Dangelo Salinas MD [address] [place] [address] Neurology 01/27/24 Anastasia Stearns, RN Lead Mammography Supervisor 02/06/24 Germaine Lopez, W Community Health Worker Primary Care - CC 02/18/24 Robin Zepeda MD [address] [place] [address], [place] [address] Assigned Neuroscience Provider 03/08/24 05/07/24 documented as of this encounter
--- OUTSIDE RECORDS SUMMARY | 2024-05-14 11:59 | XMS_ITS | Encounter Summary ---
Author Organization [place] Address [address] [place] [address] Care Team Providers Care Pastry Cook Apprentice Name Role Phone Winston Villatoro OD Unavailable Denise Woodson Ra, APRN DIRECTOR PHARMACY SERVICES Unavailable [phone] Denise Woodson Ra, APRN DIRECTOR PHARMACY SERVICES Primary Care Provid er Usha Simon APRN DIRECTOR PHARMACY SERVICES Unavailable [phone] Dangelo Salinas MD Unavailable Anastasia Stearns RN Unavailable [phone] Germaine Lopez CHW Unavailable [phone] Robin Zepeda MD Unavailable [phone] Reason for Visit * Rehab Therapy Integrated Services (Routine) - Authorized Specialty Diagnoses / Procedures Referred By Nila shah Referred To Contact Diagnoses Cerebrovascular accident (CVA), unspecified mechanism (H) [address] [address] Referral ID Status Reason Start Date Expiration Date V isits Requested Visits Authorized [id number] Authorized 09/16/2023 09/15/2024 365 365 Encounter Details Date Type Department Care Team (Late st Contact Info) Description 03/17/2024 1:30 PM CDT Therapy Visit [address] [address] Danya You, PA [address] [place] [address] [address] [place] [address] Isabel Beaulieu, OTR [address] [address] Cerebrovascular accident (CVA), unspecified mechanism (H) (Primary [...] How often do you attend catholic or oriental orthodox serv ices? Never 02/28/2024 [...] Answer Date Recorded PHQ-2 Score 0 03/17/2024 [facility] [place] of Occupat ional Health - Occupational Stress [...] Description 05/26/2024 8:30 AM CDT Office Visit [facility] [address] [place] [address] Denise Woodson Ra, CARTRIDGE LOADER DIRECTOR PHARMACY SERVICES [address] [place] [address] 06/08/2024 8:30 AM CDT Office Visit [facility] [place] [address] [place] [phone] ChintanDenise munroe Ra, CARTRIDGE LOADER DIRECTOR PHARMACY SERVICES [address] [facility] [place] [address] documented as of this encounter Goals Goal [...] Mental Health weekly - PT, OT and BOATBUILDER WOOD - PCP appointment 05/26/24 & 06/08/24 - Stroke Neurology Dr. Hoyos 04/14/24 #[phone] - Epilepsy Neurology Dr. Barcenas 05/05/24 follow up recommended in 2 months: 07/05/24 TBD. #[phone] - Vascular Dr. Zambrano 05/01/24 - follow up recommended in 6 months: 11/11/24 TBD #[phone]. - MTM if covered by insurance TBD [...] clinic with 24/7 after hours services available. Charter Coordinator will remain available as needed. documented as of this encounter Visit Diagnoses Diagnosis Cerebrovascular accident (CVA), unspecified mechanism (H)- Primary documented in this encounter Additional Health Concerns Active Problems Noted Date Diagnosed Date Increased risk of re-admission 02/18/2024 Assessment Noted Time PHQ-9 Depression Total Score: 5 03/17/20 24 9:45 AM CDT documented as of this encounter Care Teams Pastry Cook Apprentice Relationship Specialty Start Date End Date Winston Villatoro OD [facility] [place] [address] [place] [address] PCP - Ophthalmology Ophthalmology 02/11/13 Denise Woodson Ra CARTRIDGE LOADER DIRECTOR PHARMACY SERVICES [address] [place] [address] PCP - General Family Practice 09/21/20 Denise Woodson Ra CARTRIDGE LOADER DIRECTOR PHARMACY SERVICES [address] [place] [address] Assigned PCP 07/17/20 Usha Simon APRN DIRECTOR PHARMACY SERVICES [address] [address] Nurse Practitioner Neurological Surgery 01/24/24 Dangelo [place] MD [address] [place] [address] Neurology 01/27/24 Anastasia Stearns, RN Lead Charter Coordinator 02/06/24 Germaine Lopez, W Community Health Worker Primary Care - CC 02/18/24 Robin Zepeda MD [address] [address] Assigned Neuroscience Provider 03/08/24 05/07/24 documented as of this encounter
--- OUTSIDE RECORDS SUMMARY | 2024-05-14 11:59 | XMS_ITS | Encounter Summary ---
Author Organization [place] Address [address] [place] [address] Care Team Providers Care Spinning Frame Fixer Name Role Phone Winston Villatoro OD Unavailable [phone] Denise Woodson Ra, APRN OUTREACH SPECIALIST Unavailable [phone] Denise Woodson Ra, APRN OUTREACH SPECIALIST Primary Care Provid er Usha Simon APRN OUTREACH SPECIALIST Unavailable [phone] Dangelo [place] MD Unavailable Anastasia Stearns RN Unavailable [phone] Germaine Lopez CHW Unavailable Robin Zepeda MD Unavailable Reason for Visit * Reason Onset Date Comments Clinic Care Coordination - Follow-up 04/02/2024 Encounter Details Date Type Department Care Team ([facility] st Contact Info) Description 04/02/2024 Telephone [facility] Neurology Clinic [address] 3rd [place] [address] Raul Hoyos MD [address] [place] [address] [id number] [address] Clinic Care Coordination - Follow-up [...] How often do you attend mormon or presybeterian serv ices? Never 02/28/2024 Do [...] Answer Date Recorded PHQ-2 Score 0 03/17/2024 [facility] [place] of Occupat ional Health - Occupational Stress [...] Description 05/26/2024 8:30 AM CDT Office Visit [facility] [address] [place] [address] Denise Woodson Ra, COAL WASHER TENDER OUTREACH SPECIALIST [address] [address] [address] 06/08/2024 8:30 AM CDT Office Visit [facility] [address] [place] [place] [phone] Denise Woodson , COAL WASHER TENDER OUTREACH SPECIALIST [address] [place] [address] documented as of this encounter Goals Goal [...] Mental Health weekly - PT, OT and CREDIT CONTROL CLERK - PCP appointment 05/26/24 & 06/08/24 - Stroke Neurology Dr. Hoyos 04/14/24 #[phone] - Epilepsy Neurology Dr. Barcenas 05/05/24 follow up recommended in 2 months: 07/05/24 TBD. #[phone] - Vascular Dr. Zambrano 05/01/24 - follow up recommended in 6 months: 11/11/24 TBD #[phone]. - MTM if covered by insurance TBD [...] clinic with 24/7 after hours services available. Speeder Frame Tender will remain available as needed. documented as of this encounter Visit Diagnoses Not on filedocumented in this encounter Additional Health Concerns Active Problems Noted Date Diagnosed Date Increased risk of re-admission 02/18/2024 Assessment Noted Time PHQ-9 Depression Total Score: 5 03/17/20 24 9:45 AM CDT documented as of this encounter Care Teams Spinning Frame Fixer Relationship Specialty Start Date End Date Winston Villatoro OD [facility] [place] [address] [place] [address] PCP - Ophthalmology Ophthalmology 02/11/13 Denise Woodson Ra, COAL WASHER TENDER OUTREACH SPECIALIST [address] [address] [place] [address] PCP - General Family Practice 09/21/20 Denise Woodson Ra, COAL WASHER TENDER OUTREACH SPECIALIST [address] [address] [place] [address] Assigned PCP 07/17/20 Usha Simon APRN OUTREACH SPECIALIST [address] [address] Nurse Practitioner Neurological Surgery 01/24/24 Dangelo Salinas MD [address] [place] [address] Neurology 01/27/24 Anastasia Stearns, RN Lead Speeder Frame Tender 02/06/24 Germaine Lopez, CHW Community Health Worker Primary Care - CC 02/18/24 Robin Zepeda MD [address] [address] Assigned Neuroscience Provider 03/08/24 05/07/24 documented as of this encounter
--- OUTSIDE RECORDS SUMMARY | 2024-05-14 11:59 | XMS_ITS | Encounter Summary ---
Author Organization [place] Address [address] [place] [address] Care Team Providers Care Seo Analyst Name Role Phone Winston Villatoro OD Unavailable [phone] Denise Woodson Ra, APRN CHANGE MANAGEMENT COORDINATOR Unavailable [phone] Denise Woodson Ra, APRN CHANGE MANAGEMENT COORDINATOR Primary Care Provid er Usha Simon APRN CHANGE MANAGEMENT COORDINATOR Unavailable [phone] Dangelo [place] MD Unavailable Anastasia Stearns RN Unavailable [phone] Germaine Lopez CHW Unavailable [phone] Robin Zepeda MD Unavailable [phone] Reason for Visit * Rehab Therapy Integrated Services (Routine) - Authorized Specialty Diagnoses / Procedures Referred By Nila shah Referred To Contact Diagnoses Cerebrovascular accident (CVA), unspecified mechanism (H) [address] [address] Referral ID Status Reason Start Date Expiration Date V isits Requested Visits Authorized [id number] Authorized 09/16/2023 09/15/2024 365 365 Encounter Details Date Type Department Care Team (Late st Contact Info) Description 03/26/2024 2:30 PM CDT Therapy Visit [address] [address] Danya You, AMAIRANI [address] [place] [address] 213 [place] [address] Charis Chacon, J[facility]AN [facility] [address] [place] [address] Cognitive communication deficit (Primary Dx); Cerebrovascular accident [...] How often do you attend evangelical or anglican serv ices? Never 02/28/2024 Do [...] Answer Date Recorded PHQ-2 Score 0 03/17/2024 [facility] [place] of Occupat ional Health - Occupational Stress [...] Description 05/26/2024 8:30 AM CDT Office Visit [facility] [address] [place] [address] Denise Woodson Ra, AUTOMATIC SEAMER CHANGE MANAGEMENT COORDINATOR [address] [address] [address] 06/08/2024 8:30 AM CDT Office Visit [facility] [address] [place] [phone] Denise Woodson Ra, APRN CHANGE MANAGEMENT COORDINATOR [address] [place] [address] documented as of this encounter Goals Goal [...] Mental Health weekly - PT, OT and SECTION LEADER - PCP appointment 05/26/24 & 06/08/24 - Stroke Neurology Dr. Hoyos 04/14/24 #[phone] - Epilepsy Neurology Dr. Barcenas 05/05/24 follow up recommended in 2 months: 07/05/24 TBD. #[phone] - Vascular Dr. Zambrano 05/01/24 - follow up recommended in 6 months: 11/11/24 TBD #[phone]. - MTM if covered by insurance TBD [...] clinic with 24/7 after hours services available. Die Cast Technician will remain available as needed. documented as of this encounter Visit Diagnoses Diagnosis Cognitive communication deficit- Primary Cerebrovascular accident (CVA), unspecified mechanism (H) documented in this encounter Additional Health Concerns Active Problems Noted Date Diagnosed Date Increased risk of re-admission 02/18/2024 Assessment Noted Time PHQ-9 Depression Total Score: 5 03/17/20 24 9:45 AM CDT documented as of this encounter Care Teams Seo Analyst Relationship Specialty Start Date End Date Winston Villatoro OD [facility] [place] [address] [place], [place] [address] PCP - Ophthalmology Ophthalmology 02/11/13 Denise Woodson Ra, APRN CHANGE MANAGEMENT COORDINATOR [address] [place] [address] PCP - General Family Practice 09/21/20 Denise Woodson Ra, APRN CHANGE MANAGEMENT COORDINATOR [address] [place] [address] Assigned PCP 07/17/20 Usha Simon APRN CHANGE MANAGEMENT COORDINATOR [address] [place] [address] Nurse Practitioner Neurological Surgery 01/24/24 Dangelo Salinas MD [address] [facility] [address] [place], [place] [address] Neurology 01/27/24 Anastasia Stearns, RN Lead Die Cast Technician 02/06/24 Germaine Lopez, W Community Health Worker Primary Care - CC 02/18/24 Robin Zepeda MD [address] [address] Assigned Neuroscience Provider 03/08/24 05/07/24 documented as of this encounter
--- OUTSIDE RECORDS SUMMARY | 2024-05-14 11:59 | XMS_ITS | Encounter Summary ---
Author Organization [facility] Address [address] [place] [address] Care Team Providers Care Burn Out Scarfing Operator Name Role Phone Winston Villatoro OD Unavailable [phone] Denise Woodson Ra, APRN TEXTILE EXAMINER Unavailable [phone] Denise Woodson Ra, APRN TEXTILE EXAMINER Primary Care Provid er Usha Simon APRN TEXTILE EXAMINER Unavailable [phone] Dangelo [place]inas MD Unavailable Anastasia Stearns RN Unavailable Germaine Lopez CHW Unavailable Robin Zepeda MD Unavailable Reason for Referral * Diagnostic Imaging CT Scan (Routine) - Closed Specialty Diagnoses / Procedures Referred By Contac t Referred To Contact Radiology. Diagnoses Fibromuscular dysplasia (H24) Procedures CTA Chest Abdomen Pelvis w Contrast Denise Woodson Ra, APRN TEXTILE EXAMINER [address] [place] [address] Referral ID Status Reason Start Date Expiration Date Visits Re quested Visits Authorized [id number] Closed 02/06/2024 02/05/2025 1 1 Reason for Visit * Diagnostic Imaging CT Scan (Routine) - Closed Specialty Diagnoses / Procedures Referred By Contac t Referred To Contact Radiology. Diagnoses Fibromuscular dysplasia (H24) Procedures CTA Chest Abdomen Pelvis w Contrast Denise Woodson Ra, APRN TEXTILE EXAMINER [address] [place] [address] Referral ID Status Reason Start Date Expiration Date Visits Re quested Visits Authorized [id number] Closed 02/06/2024 02/05/2025 1 1 Encounter Details Date Type Department Care Team (Latest Contact Info) Description 03/18/2024 1:21 PM CDT - 03/18/2024 11:59 PM CDT Hospital Encounter [facility] [address] [place] [address] Denise Woodson Ra, APRN CNP [address] [address] [address] Fibromuscular dysplasia (H24) Discharge Disposition: Home or [...] Never 02/28/2024 How often do you attend anglican or presybeterian serv ices? Never 02/28/2024 Do [...] Answer Date Recorded PHQ-2 Score 0 03/17/2024 [facility] of Occupat ional Health [...] Description 05/26/2024 8:30 AM CDT [facility] [address] [place] [phone] Denise Woodson Ra, APRN TEXTILE EXAMINER [address] [place], [place] [id number] 06/08/2024 8:30 AM CDT Office Visit [facility] [place] [address] [place] [address] Denise Woodson Ra, APRN TEXTILE EXAMINER [address] [place], [place] 19[address] documented as of this encounter Goals Goal [...] Mental Health weekly - PT, OT and EVENT AV OPERATOR - PCP appointment 05/26/24 & 06/08/24 - Stroke Neurology Dr. Hoyos 04/14/24 #[phone] - Epilepsy Neurology Dr. Barcenas 05/05/24 follow up recommended in 2 months: 07/05/24 TBD. #[phone] - Vascular Dr. Zambrano 05/01/24 - follow up recommended in 6 months: 11/11/24 TBD #[phone]. - MTM if covered by insurance TBD [...] clinic with 08/04 after hours services available. Solar Site Assessment Specialist will remain available as needed. documented as of this encounter Procedures Procedure Name Priority Date/Time Associated Diagnosis Comments CTA CHEST ABDOMEN PELVIS W CONTRAST Routine 03/18/2024 2:08 PM CDT Fibromuscular dysplasia (H24) documented in this encounter Results * CTA Chest Abdomen Pelvis w Contrast (03/18/2024 2:08 PM CDT) Anatomical Region Laterality Modality Lower Extremity, SUBRAD IR P ALEJANDRO, UMP CT CTA, RAD CT Computed Tomography [...] unremarkable. There is pectus excavatum. Procedure Note Signh Worley MD - 03/18/2024 CTA CHEST, ABDOMEN [...] FMD identified. SINGH WORLEY MD Denise Woodson APRN, CNP IMG CT ORDER NASRIN documented [...] documented as of this encounter Care Teams Burn Out Scarfing Operator Relationship Specialty Start Date End Date Winston Villatoro OD [facility] [address] [facility] [address] [place] [address] PCP - Ophthalmology Ophthalmology 02/11/13 Denise Woodson Ra, APRN TEXTILE EXAMINER [address] [address] [address] PCP - General Family Practice 09/21/20 Denise Woodson Ra, APRN CNP [address] [address] [address] Assigned PCP 07/17/20 Usha Simon APRN TEXTILE EXAMINER [address]09 [facility] [place] [address] Nurse Practitioner Neurological Surgery 01/24/24 Dangelo Salinas MD [address] [place] [address] Neurology 01/27/24 Anastasia Stearns, RN Lead Solar Site Assessment Specialist 02/06/24 Germaine Lopez, W Community Health Worker Primary Care - CC 02/18/24 Robin Zepeda MD 909 [facility] [place] [address] Assigned Neuroscience Provider 03/08/24 05/07/24 documented as of this encounter
--- OUTSIDE RECORDS SUMMARY | 2024-05-14 11:59 | XMS_ITS | Encounter Summary ---
Author Organization [facility] Address [address] [place] [address] Care Team Providers Care Millwright Instructor Name Role Phone Winston Villatoro OD Unavailable [phone] Denise Woodson Ra, APRN REGULATORY COMPLIANCE OFFICER Unavailable [phone] Denise Woodson Ra, APRN REGULATORY COMPLIANCE OFFICER Primary Care Provid er Usha Simon APRN REGULATORY COMPLIANCE OFFICER Unavailable [phone] Dangelo Salinas MD Unavailable Anastasia Stearns RN Unavailable [phone] Germaine Lopez CHW Unavailable [phone] Robin Zepeda MD Unavailable [phone] Reason for Visit * Rehab Therapy Integrated Services (Routine) - Authorized Specialty Diagnoses / Procedures Referred By Nila shah Referred To Contact Diagnoses Cerebrovascular accident (CVA), unspecified mechanism (H) [address] [address] Referral ID Status Reason Start Date Expiration Date V isits Requested Visits Authorized [id number] Authorized 09/16/2023 09/15/2024 365 365 Encounter Details Date Type Department Care Team (Late st Contact Info) Description 04/02/2024 3:15 PM CDT Therapy Visit [address] [phone] Danya You, AMAIRANI [address] [place] [address] [address] [place] [address] Charis Chacon, JUAN [facility] [address] [place] [address] Cognitive communication deficit (Primary Dx); Cerebrovascular accident [...] How often do you attend gnosticism or druze serv ices? Never 02/28/2024 Do you belong [...] Answer Date Recorded PHQ-2 Score 0 03/17/2024 [facility] [place] of Occupat ional Health - Occupational Stress [...] Description 05/26/2024 8:30 AM CDT Office Visit [facility] [address] [place] [address] Denise Woodson Ra, TESTING COORDINATOR REGULATORY COMPLIANCE OFFICER [address] [address] [address] 06/08/2024 8:30 AM CDT Office Visit [facility] [place] [address] [address] [phone] Denise Woodson Ra, APRN REGULATORY COMPLIANCE OFFICER [address] [place] [address] documented as of this encounter Goals Goal [...] Mental Health weekly - PT, OT and NURSERY ATTENDANT - PCP appointment 05/26/24 & 06/08/24 - Stroke Neurology Dr. Hoyos 04/14/24 #[phone] - Epilepsy Neurology Dr. Barcenas 05/05/24 follow up recommended in 2 months: 07/05/24 TBD. #[phone] - Vascular Dr. Zambrano 05/01/24 - follow up recommended in 6 months: 11/11/24 TBD #[phone]. - MTM if covered by insurance TBD [...] clinic with 24/7 after hours services available. Button Spindler will remain available as needed. documented as of this encounter Visit Diagnoses Diagnosis Cognitive communication deficit- Primary Cerebrovascular accident (CVA), unspecified mechanism (H) documented in this encounter Additional Health Concerns Active Problems Noted Date Diagnosed Date Increased risk of re-admission 02/18/2024 Assessment Noted Time PHQ-9 Depression Total Score: 5 03/17/20 24 9:45 AM CDT documented as of this encounter Care Teams Millwright Instructor Relationship Specialty Start Date End Date Winston Villatoro OD [facility] [place] [address] [place], [place] [id number] PCP - Ophthalmology Ophthalmology 02/11/13 Denise Woodson Ra, APRN REGULATORY COMPLIANCE OFFICER [address] [place] [address] PCP - General Family Practice 09/21/20 Denise Woodson Ra, APRN REGULATORY COMPLIANCE OFFICER [address] [place] [address] Assigned PCP 07/17/20 Usha Simon APRN REGULATORY COMPLIANCE OFFICER [address] [place] [address] Nurse Practitioner Neurological Surgery 01/24/24 Dangelo Salinas MD [address] [facility] [address] [place], [place] [id number] Neurology 01/27/24 Anastasia Stearns, RN Lead Button Spindler 02/06/24 Germaine Lopez, W Community Health Worker Primary Care - CC 02/18/24 Robin Zepeda MD [address] [address] Assigned Neuroscience Provider 03/08/24 05/07/24 documented as of this encounter
--- OUTSIDE RECORDS SUMMARY | 2024-05-14 11:59 | XMS_ITS | Encounter Summary ---
Author Organization [facility] Address [address] [place] [address] Care Team Providers Care Funeral Home Assistant Name Role Phone Winston Villatoro OD Unavailable [phone] Denise Woodson Ra, APRN FIELD SERVICE TECHNICIAN POULTRY Unavailable + [phone] Denise Woodson Ra, APRN FIELD SERVICE TECHNICIAN POULTRY Primary Care Provid er Usha Simon APRN FIELD SERVICE TECHNICIAN POULTRY Unavailable + [phone] Dangelo Salinas MD Unavailable Anastasia Stearns RN Unavailable [phone] Germaine Lopez CHW Unavailable [phone] Robin Zepeda MD Unavailable [phone] Lisa Zambrano MD Unavailable + [phone] Raul Hoyos MD Unavailable [phone] Encounter Details Date Type Department Care Team (Late st Contact Info) Description 04/02/2024 [facility] [address] 3rd [place] [address] Liliane Cobos Social History Tobacco [...] Never 02/28/2024 How often do you attend confucianist or episcopalian serv ices? Never 02/28/2024 Do you belong to any clubs o r organizations such as confucianist groups, unions, fraternal or athletic groups, or [...] Answer Date Recorded PHQ-2 Score 0 03/17/2024 [facility] of Occupat ional Health - Occupational [...] Description 05/26/2024 8:30 AM CDT [facility] [address] [place] [address] Denise Woodson Ra, APRN FIELD SERVICE TECHNICIAN POULTRY [address] [place] [address] 06/08/2024 8:30 AM CDT Office Visit [facility] [place] [address] [place] [phone] Denise Woodson Ra, APRN FIELD SERVICE TECHNICIAN POULTRY [address] [place], [place] [address] documented as of this encounter Goals Goal [...] Mental Health weekly - PT, OT and COMPUTER SYSTEMS DESIGN ANALYST - PCP appointment 05/26/24 & 06/08/24 - Stroke Neurology Dr. Hoyos 04/14/24 #[phone] - Epilepsy Neurology Dr. Barcenas 05/05/24 follow up recommended in 2 months: 07/05/24 TBD. #[phone] - Vascular Dr. Zambrano 05/01/24 - follow up recommended in 6 months: 11/11/24 TBD #[phone]. - MTM if covered by insurance TBD [...] clinic with 24/7 after hours services available. Database Dba will remain available as needed. documented as of this encounter Visit Diagnoses Not on filedocumented in this encounter Additional Health Concerns Active Problems Noted Date Diagnosed Date Increased risk of re-admission 02/18/2024 Assessment Noted Time PHQ-9 Depression Total Score: 5 03/17/20 9:45 AM CDT documented as of this encounter Care Teams Funeral Home Assistant Relationship Specialty Start Date End Date Winston Villatoro OD [facility] [address] [place] [address] PCP - Ophthalmology Ophthalmology 02/11/13 Denise Woodson Ra, AIR POLLUTION ENGINEER FIELD SERVICE TECHNICIAN POULTRY [address] [address] [address] PCP - General Family Practice 09/21/20 Denise Woodson Ra, APRN FIELD SERVICE TECHNICIAN POULTRY [address] [address] [address] Assigned PCP 07/17/20 Usha Simon APRN FIELD SERVICE TECHNICIAN POULTRY [address] 516445 Nurse Practitioner Neurological Surgery 01/24/24 Dangelo Salinas MD [address] [place] [address] Neurology 01/27/24 Anastasia Stearns, RN Lead Database Dba 02/06/24 Germaine Lopez, [facility] Community Health Worker Primary Care - CC 02/18/24 Robin Zepeda MD [address] 210135 Assigned Neuroscience Provider 03/08/24 05/07/24 Lias Zambrano MD [address] [place] [address] Assigned Heart and Vascular Provider 05/08/24 Raul Hoyos MD [address] 656135 Assigned Neuroscience Provider 05/08/24 documented as of this encounter
--- OUTSIDE RECORDS SUMMARY | 2024-05-14 11:59 | XMS_ITS | Encounter Summary ---
Author Organization [facility] Address [address] [place] [address] Care Team Providers Care Apron Operator Name Role Phone ShaunaWinston OD Unavailable [phone] Denise Woodson Ra, APRN BRAND REPRESENTATIVE Unavailable [phone] Denise Woodson Ra, APRN BRAND REPRESENTATIVE Primary Care Provid er Usha Simon APRN BRAND REPRESENTATIVE Unavailable [phone] Dangelo Salinas MD Unavailable Anastasia Stearns RN Unavailable [phone] Germaine Lopez CHW Unavailable [phone] Robin Zepeda MD Unavailable [phone] Encounter Details Date Type Department Care Team [...] How often do you attend caodaism or jehovah's witness serv ices? Never 02/28/2024 [...] Answer Date Recorded PHQ-2 Score 0 03/17/2024 [facility] of Occupat ional Health - [...] Description 05/26/2024 8:30 AM CDT [facility] [address] [place] [address] Denise Woodson Ra, SAP SOLUTIONS ARCHITECT BRAND REPRESENTATIVE [address] [place], [place] [address] 06/08/2024 8:30 AM CDT Office Visit [facility] [place] [address] [place] [address] Denise Woodson Ra, BARRERA BRAND REPRESENTATIVE [address] [place], [place] 048[address] documented as of this encounter Goals Goal [...] Mental Health weekly - PT, OT and POLICE SERGEANT PRECINCT - PCP appointment 05/26/24 & 06/08/24 - Stroke Neurology Dr. Hoyos 04/14/24 #[phone] - Epilepsy Neurology Dr. Barcenas 05/05/24 follow up recommended in 2 months: 07/05/24 TBD. #[phone] - Vascular Dr. Zambrano 05/01/24 - follow up recommended in 6 months: 11/11/24 TBD #[phone]. - MTM if covered by insurance TBD [...] clinic with 08/04 after hours services available. Soft Tile Setter will remain available as needed. documented as of this encounter Visit Diagnoses Not on filedocumented in this encounter Additional Health Concerns Active Problems Noted Date Diagnosed Date Increased risk of re-admission 02/18/2024 Assessment Noted Time PHQ-9 Depression Total Score: 5 03/17/20 9:45 AM CDT documented as of this encounter Care Teams Apron Operator Relationship Specialty Start Date End Date Winston Villatoro, OD [facility] [address] [place] [address] PCP - Ophthalmology Ophthalmology 02/11/13 Denise Woodson Ra, APRN BRAND REPRESENTATIVE [address] [address] [address] PCP - General Family Practice 09/21/20 Denise Woodson Ra, APRN BRAND REPRESENTATIVE [address] [address] [address] Assigned PCP 07/17/20 Usha Simon APRN BRAND REPRESENTATIVE [address] [facility] [place] [address] Nurse Practitioner Neurological Surgery 01/24/24 Dangelo Salinas MD [address] [place] [address] Neurology 01/27/24 Anastasia Stearns, RN Lead Soft Tile Setter 02/06/24 Germaine Lopez, W Community Health Worker Primary Care - CC 02/18/24 Rboin Zepeda MD 909 [facility] [place] [address] Assigned Neuroscience Provider 03/08/24 05/07/24 documented as of this encounter
--- OUTSIDE RECORDS SUMMARY | 2024-05-14 11:59 | XMS_ITS | Encounter Summary ---
Author Organization [facility] Address [address] [place] [address]. [place] [address] Care Team Providers Care Chief Operator Reformer Name Role Phone Winston Villatoro OD Unavailable [phone] Denise Woodson Ra, APRN CONSTRUCTION SAFETY CONSULTANT Unavailable + [phone] Denise Woodson Ra, APRN CONSTRUCTION SAFETY CONSULTANT Primary Care Provid er Usha Simon APRN CONSTRUCTION SAFETY CONSULTANT Unavailable Dangelo Salinas MD Unavailable Anastasia Stearns RN Unavailable [phone] Germaine Lopez CHW Unavailable Robin Zepeda MD Unavailable Reason for Visit * Reason Comments Follow Up Stroke Encounter Details Date Type Department Care Team (Late st Contact Info) Description 03/17/2024 10:00 AM CDT Office Visit [facility] [address] [place] [address] Denise Woodson Ra, APRN CONSTRUCTION SAFETY CONSULTANT [address] [place] [address] History of seizure (Primary Dx); [...] How often do you attend sikhism or roman catholic serv ices? Never 02/28/2024 Do you [...] Answer Date Recorded PHQ-2 Score 0 03/17/2024 [facility] of Occupat ional [...] encounter Progress Notes * Denise Woodson Ra, RETAIL STOCKER CONSTRUCTION SAFETY CONSULTANT - 03/17/2024 10:00 AM CDT Assessment & [...] her face. She was seen in the [facility]. Imaging showed no acute stroke. She [...] Description 05/26/2024 8:30 AM CDT Office Visit [place] [phone] Denise Woodson Ra, RETAIL STOCKER CONSTRUCTION SAFETY CONSULTANT [address] [place] [place] [id number] 06/08/2024 8:30 AM CDT Office Visit [facility] [place] [address] [facility] [place] [phone] Denise Woodson Ra, RETAIL STOCKER CONSTRUCTION SAFETY CONSULTANT [address] [place] [address] documented as of this encounter Goals Goal [...] Mental Health weekly - PT, OT and CORPORATE DEVELOPMENT OFFICER - PCP appointment 05/26/24 & 06/08/24 - Stroke Neurology Dr. Hoyos 04/14/24 #[phone] - Epilepsy Neurology Dr. Barcenas 05/05/24 follow up recommended in 2 months: 07/05/24 TBD. #[phone] - Vascular Dr. Zambrano 05/01/24 - follow up recommended in 6 months: 11/11/24 TBD #[phone]. - MTM if covered by insurance TBD [...] clinic with 08/04 after hours services available. Gutter Mouth Cutter will remain available as needed. documented as of this encounter Visit Diagnoses Diagnosis History of seizure- Primary Cerebrovascular accident (CVA), unspecified mechanism (H) documented in this encounter Additional Health Concerns Active Problems Noted Date Diagnosed Date Increased risk of re-admission 02/18/2024 Assessment Noted Time PHQ-9 Depression Total Score: 5 03/17/20 24 9:45 AM CDT documented as of this encounter Care Teams Chief Operator Reformer Relationship Specialty Start Date End Date Winston Villatoro OD [facility] [place] [address] [place] [address] PCP - Ophthalmology Ophthalmology 02/11/13 Denise Woodson Ra, APRN CONSTRUCTION SAFETY CONSULTANT [address] [place] [address] PCP - General Family Practice 09/21/20 Denise Woodson Ra, APRN CONSTRUCTION SAFETY CONSULTANT [address] [place] [address] Assigned PCP 07/17/20 Usha Simon APRN CONSTRUCTION SAFETY CONSULTANT [address] [place] [address]1285 Nurse Practitioner Neurological Surgery 01/24/24 [place] [address] [place] [address] Neurology 01/27/24 Anastasia Stearns, RN Lead Gutter Mouth Cutter 02/06/24 Germaine Lopez, CHW Community Health Worker Primary Care - CC 02/18/24 Robin Zepeda MD [address] [place] [address]3625 Assigned Neuroscience Provider 03/08/24 05/07/24 documented as of this encounter
--- OUTSIDE RECORDS SUMMARY | 2024-05-14 11:59 | XMS_ITS | Encounter Summary ---
Author Organization [facility] Address [address] [place] [address] Care Team Providers Care Recycling Specialist Name Role Phone Winston Villatoro OD Unavailable [phone] Denise Woodson Ra, APRN EARRINGS FABRICATOR Unavailable [phone] Denise Woodson Ra, APRN EARRINGS FABRICATOR Primary Care Provid er Usha Simon APRN EARRINGS FABRICATOR Unavailable [phone] Dangelo Salinas MD Unavailable Anastasia Stearns RN Unavailable [phone] Germaine Lopez CHW Unavailable Robin Zepeda MD Unavailable [phone] Reason for Visit * Rehab Therapy Integrated Services (Routine) - Authorized Specialty Diagnoses / Procedures Referred By Nila shah Referred To Contact Diagnoses Cerebrovascular accident (CVA), unspecified mechanism (H) [address] [address] Referral ID Status Reason Start Date Expiration Date V isits Requested Visits Authorized [id number] Authorized 09/16/2023 09/15/2024 365 365 Encounter Details Date Type Department Care Team (Late st Contact Info) Description 04/02/2024 2:15 PM CDT Therapy Visit [address] [phone] Danya You, AMAIRANI [address] [place] [address] 213 [place] [address] Isabel Beaulieu, OTR [address] [address] Cerebrovascular accident (CVA), unspecified mechanism (H) (Primary [...] How often do you attend sabianist or shinto serv ices? Never 02/28/2024 Do you belong [...] Answer Date Recorded PHQ-2 Score 0 03/17/2024 [facility] [place] of Occupat ional Health - Occupational Stress [...] Description 05/26/2024 8:30 AM CDT Office Visit [facility] [address] [place] [address] Denise Woodson Ra, DOUGH PUNCHER EARRINGS FABRICATOR [address] [place] [address] 06/08/2024 8:30 AM CDT Office Visit [facility] [place] [address] [place] [phone] ChintanDenise munroe Ra, DOUGH PUNCHER EARRINGS FABRICATOR [address] [facility] [place] [address] documented as of this encounter Goals Goal [...] Mental Health weekly - PT, OT and WEB FEEDER - PCP appointment 05/26/24 & 06/08/24 - Stroke Neurology Dr. Hoyos 04/14/24 #[phone] - Epilepsy Neurology Dr. Barcenas 05/05/24 follow up recommended in 2 months: 07/05/24 TBD. #[phone] - Vascular Dr. Zambrano 05/01/24 - follow up recommended in 6 months: 11/11/24 TBD #[phone]. - MTM if covered by insurance TBD [...] clinic with 24/7 after hours services available. Senior Software Quality Engineer will remain available as needed. documented as of this encounter Visit Diagnoses Diagnosis Cerebrovascular accident (CVA), unspecified mechanism (H)- Primary documented in this encounter Additional Health Concerns Active Problems Noted Date Diagnosed Date Increased risk of re-admission 02/18/2024 Assessment Noted Time PHQ-9 Depression Total Score: 5 03/17/20 24 9:45 AM CDT documented as of this encounter Care Teams Recycling Specialist Relationship Specialty Start Date End Date Winston Villatoro OD [facility] [place] [address] [place] [address] PCP - Ophthalmology Ophthalmology 02/11/13 Denise Woodson Ra DOUGH PUNCHER EARRINGS FABRICATOR [address] [place] [address] PCP - General Family Practice 09/21/20 Denise Woodson Ra DOUGH PUNCHER EARRINGS FABRICATOR [address] [place] [address] Assigned PCP 07/17/20 Usha Simon APRN EARRINGS FABRICATOR [address] [address] Nurse Practitioner Neurological Surgery 01/24/24 Dangelo Salinas MD [address] [place] [address] Neurology 01/27/24 Anastasia Stearns, RN Lead Senior Software Quality Engineer 02/06/24 Germaine Lopez, W Community Health Worker Primary Care - CC 02/18/24 Robin Zepeda MD [address] [address] Assigned Neuroscience Provider 03/08/24 05/07/24 documented as of this encounter
--- OUTSIDE RECORDS SUMMARY | 2024-05-14 11:59 | XMS_ITS | Encounter Summary ---
Author Organization [facility] Address [address] [place] [address] Care Team Providers Care Coal Trimmer Machine Operator Name Role Phone Winston Villatoro OD Unavailable [phone] Denise Woodson Ra, APRN SAP HANA ARCHITECT Unavailable [phone] Denise Woodson Ra, APRN SAP HANA ARCHITECT Primary Care Provid er Usha Simon APRN SAP HANA ARCHITECT Unavailable [phone] Dangelo Salinas MD Unavailable Anastasia Stearns RN Unavailable [phone] Germaine Lopez CHW Unavailable [phone] Robin Zepeda MD Unavailable [phone] Reason for Visit * Rehab Therapy Integrated Services (Routine) - Authorized Specialty Diagnoses / Procedures Referred By Nila shah Referred To Contact Diagnoses Cerebrovascular accident (CVA), unspecified mechanism (H) [address] [address] Referral ID Status Reason Start Date Expiration Date V isits Requested Visits Authorized [id number] Authorized 09/16/2023 09/15/2024 365 365 Encounter Details Date Type Department Care Team (Late st Contact Info) Description 03/26/2024 3:30 PM CDT Therapy Visit [address] [phone] Danya You, AMAIRANI [address] [place] [place] [address] [address] [place] [address] Delicia George, PT [address] [place] [address] Cerebrovascular accident (CVA), unspecified mechanism [...] How often do you attend samaritan or congregation serv ices? Never 02/28/2024 Do [...] [facility] [place] of Occupat ional Health - Occupational Stress [...] Description 05/26/2024 8:30 AM CDT Office Visit [facility] [place] [address] [place] [address] Denise Woodson Ra, SURGICAL ASSISTANT SAP HANA ARCHITECT [address] [facility] [place] [place] 06[address] 06/08/2024 8:30 AM CDT Office Visit [facility] [address] [place] [address] Denise Woodson Ra, SURGICAL ASSISTANT SAP HANA ARCHITECT [address] [facility], [place] [phone] documented as of this encounter Goals Goal [...] Mental Health weekly - PT, OT and GARAGE WORKER - PCP appointment 05/26/24 & 06/08/24 - Stroke Neurology Dr. Hoyos 04/14/24 #[phone] - Epilepsy Neurology Dr. Barcenas 05/05/24 follow up recommended in 2 months: 10/20/24 TBD. #[phone] - Vascular Dr. Zambrano 05/01/24 - follow up recommended in 6 months: 11/11/24 TBD #[phone]. - MTM if covered by insurance TBD [...] clinic with 08/04 after hours services available. Fire Prevention Chief will remain available as needed. documented as of this encounter Visit Diagnoses Diagnosis Cerebrovascular accident (CVA), unspecified mechanism (H)- Primary documented in this encounter Additional Health Concerns Active Problems Noted Date Diagnosed Date Increased risk of re-admission 02/18/2024 Assessment Noted Time PHQ-9 Depression Total Score: 5 03/17/20 24 9:45 AM CDT documented as of this encounter Care Teams Coal Trimmer Machine Operator Relationship Specialty Start Date End Date Winston Villatoro OD [facility] [place] [address] [place] [address] PCP - Ophthalmology Ophthalmology 02/11/13 Denise Woodson Ra, APRN SAP HANA ARCHITECT [address] [place] [address] PCP - General Family Practice 09/21/20 Denise Woodson Ra, APRN SAP HANA ARCHITECT [address] [place] [address] Assigned PCP 07/17/20 Usha Simon APRN SAP HANA ARCHITECT 909 [facility] [place] [id number] [address] Nurse Practitioner Neurological Surgery 01/24/24 Dangelo Salinas MD [address] [place] [address] Neurology 01/27/24 Anastasia Stearns, RN Lead Fire Prevention Chief 02/06/24 Germaine Lopez, W Community Health Worker Primary Care - CC 02/18/24 Robin Zepeda MD [address] [place] [address] [id number] [place] [address] Assigned Neuroscience Provider 03/08/24 05/07/24 documented as of this encounter
--- OUTSIDE RECORDS SUMMARY | 2024-05-14 11:59 | XMS_ITS | Encounter Summary ---
Author Organization [place] Address [address] [place] [address] Care Team Providers Care Area Cleaner Name Role Phone Winston Villatoro OD Unavailable [phone] Denise Woodson Ra, APRN GREIGE GOODS EXAMINER Unavailable [phone] Denise Woodson Ra, APRN GREIGE GOODS EXAMINER Primary Care Provid er Usha Simon APRN GREIGE GOODS EXAMINER Unavailable [phone] Dangelo Salinas MD Unavailable Anastasia Stearns RN Unavailable [phone] Germaine Lopez CHW Unavailable [phone] Robin Zepeda MD Unavailable [phone] Reason for Visit * Rehab Therapy Integrated Services (Routine) - Authorized Specialty Diagnoses / Procedures Referred By Nila shah Referred To Contact Diagnoses Cerebrovascular accident (CVA), unspecified mechanism (H) [address] [address] Referral ID Status Reason Start Date Expiration Date V isits Requested Visits Authorized [id number] Authorized 09/16/2023 09/15/2024 365 365 Encounter Details Date Type Department Care Team (Late st Contact Info) Description 04/02/2024 4:15 PM CDT Therapy Visit [address] [phone] Danya You, AMAIRANI [address] [place] [address] [address] [place] [address] Delicia George, PT [address] [place] [address] Cerebrovascular accident (CVA), unspecified mechanism [...] How often do you attend anabaptism or scientology serv ices? Never 02/28/2024 Do [...] Answer Date Recorded PHQ-2 Score 0 03/17/2024 [facility] of Occupat ional Health - Occupational Stress [...] zags in patterns while walking (Z, box, algaaciq, star). Don't push to an increase in [...] Description 05/26/2024 8:30 AM CDT Office Visit [facility] [address] [place] [phone] Denise Woodson Ra, APRN GREIGE GOODS EXAMINER [address] [place] [address] 06/08/2024 8:30 AM CDT Office Visit [facility] [place] [address] [place] [address] Denise Woodson Ra, APRN GREIGE GOODS EXAMINER [address] [place], [place] 9138[address] documented as of this encounter Goals Goal [...] Mental Health weekly - PT, OT and PRODUCTION MACHINE COMPUTER OPERATOR - PCP appointment 05/26/24 & 06/08/24 - Stroke Neurology Dr. Hoyos 04/14/24 #[phone] - Epilepsy Neurology Dr. Barcenas 05/05/24 follow up recommended in 2 months: 07/05/24 TBD. #[phone] - Vascular Dr. Zambrano 05/01/24 - follow up recommended in 6 months: 11/11/24 TBD #[phone]. - MTM if covered by insurance TBD [...] clinic with 24/7 after hours services available. Associate Pastor will remain available as needed. documented as of this encounter Visit Diagnoses Diagnosis Cerebrovascular accident (CVA), unspecified mechanism (H)- Primary documented in this encounter Additional Health Concerns Active Problems Noted Date Diagnosed Date Increased risk of re-admission 02/18/2024 Assessment Noted Time PHQ-9 Depression Total Score: 5 03/17/20 24 9:45 AM CDT documented as of this encounter Care Teams Area Cleaner Relationship Specialty Start Date End Date Winston Villatoro OD [facility] [place] [address] [place] [address] PCP - Ophthalmology Ophthalmology 02/11/13 Denise Woodson Ra, APRN GREIGE GOODS EXAMINER [address] [address] [place] [address] PCP - General Family Practice 09/21/20 Denise Woodson Ra, APRN GREIGE GOODS EXAMINER [address] [place] [address] Assigned PCP 07/17/20 Usha Simon APRN GREIGE GOODS EXAMINER 909 [facility] [place], [place] [address] Nurse Practitioner Neurological Surgery 01/24/24 Dangelo Salinas MD [address] [place] [address] Neurology 01/27/24 Anastasia Stearns, RN Lead Associate Pastor 02/06/24 Germaine Lopez, W Community Health Worker Primary Care - CC 02/18/24 Robin Zepeda MD 909 [facility], [place] [address] Assigned Neuroscience Provider 03/08/24 05/07/24 documented as of this encounter
--- OUTSIDE RECORDS SUMMARY | 2024-05-14 11:59 | XMS_ITS | Encounter Summary ---
Author Organization [place] Address [address] [place] [address] Care Team Providers Care Gate Technician Name Role Phone ShaunaWinston OD Unavailable [phone] Denise Woodson Ra, APRN CONFECTIONERY DROPS MACHINE OPERATOR Unavailable [phone] Denise Woodson Ra, APRN CONFECTIONERY DROPS MACHINE OPERATOR Primary Care Provid er Usha Simon APRN CONFECTIONERY DROPS MACHINE OPERATOR Unavailable [phone] Dangelo Salinas MD Unavailable Anastasia Staerns RN Unavailable [phone] Germaine Lopez CHW Unavailable [phone] Robin Zepeda MD Unavailable [phone] Encounter Details Date Type Department Care Team [...] How often do you attend scientology or gnosticism serv ices? Never 02/28/2024 Do [...] Answer Date Recorded PHQ-2 Score 0 03/17/2024 [facility] of Occupat ional Health - [...] AM CDT [facility] [address] [place] [address] Denise Woodson Ra, AIR INTELLIGENCE SPECIALIST CONFECTIONERY DROPS MACHINE OPERATOR [address] [place], [place] [address] 06/08/2024 8:30 AM CDT Office Visit [facility] [place] [address] [place] [address] Denise Woodson Ra, BARRERA CONFECTIONERY DROPS MACHINE OPERATOR [address] [place], [place] [address] documented as of this encounter Goals Goal [...] Mental Health weekly - PT, OT and MORTGAGE ACCOUNTING CLERK - PCP appointment 05/26/24 & 06/08/24 - Stroke Neurology Dr. Hoyos 04/14/24 #[phone] - Epilepsy Neurology Dr. Barcenas 05/05/24 follow up recommended in 2 months: 07/05/24 TBD. #[phone] - Vascular Dr. Zambrano 05/01/24 - follow up recommended in 6 months: 11/11/24 TBD #[phone]. - MTM if covered by insurance TBD [...] clinic with 08/04 after hours services available. Stores Despatch Hand will remain available as needed. documented as of this encounter Visit Diagnoses Not on filedocumented in this encounter Additional Health Concerns Active Problems Noted Date Diagnosed Date Increased risk of re-admission 02/18/2024 Assessment Noted Time PHQ-9 Depression Total Score: 5 03/17/20 9:45 AM CDT documented as of this encounter Care Teams Gate Technician Relationship Specialty Start Date End Date Winston Villatoro, OD [facility] [address] [place] [address] PCP - Ophthalmology Ophthalmology 02/11/13 Denise Woodson Ra, APRN CONFECTIONERY DROPS MACHINE OPERATOR [address] [address] [place] [address] PCP - General Family Practice 09/21/20 Denise Woodson Ra, APRN CONFECTIONERY DROPS MACHINE OPERATOR [address] [place] [place] [address] Assigned PCP 07/17/20 Usha Simon APRN CONFECTIONERY DROPS MACHINE OPERATOR 909 [facility] [place] [address] Nurse Practitioner Neurological Surgery 01/24/24 Dangelo Salinas MD [address] [place] [address] Neurology 01/27/24 Anastasia Stearns, RN Lead Stores Despatch Hand 02/06/24 Germaine Lopez, W Community Health Worker Primary Care - CC 02/18/24 Robin Zepeda MD 909 [facility] [place] [address] Assigned Neuroscience Provider 03/08/24 05/07/24 documented as of this encounter
--- OUTSIDE RECORDS SUMMARY | 2024-05-14 11:59 | XMS_ITS | Encounter Summary ---
Author Organization [place] Address [address] [place] [address] Care Team Providers Care Tilting Saw Operator Name Role Phone ShaunaWinston OD Unavailable [phone] Denise Woodson Ra, APRN DIRECTOR OF GLOBAL SALES Unavailable [phone] Denise Woodson Ra, APRN DIRECTOR OF GLOBAL SALES Primary Care Provid er Usha Simon APRN DIRECTOR OF GLOBAL SALES Unavailable [phone] Dangelo Salinas MD Unavailable Anastasia Stearns RN Unavailable [phone] Germaine Lopez CHW Unavailable [phone] Robin Zepeda MD Unavailable Encounter Details Date [...] How often do you attend mosque or roman catholic serv ices? Never 02/28/2024 [...] Answer Date Recorded PHQ-2 Score 0 03/17/2024 [facility] of Occupat ional Health - Occupational Stress [...] CDT [facility] [address] [place] [address] Denise Woodson Ra, DROP BOARD WORKER DIRECTOR OF GLOBAL SALES [address] [place], [place] [address] 06/08/2024 8:30 AM CDT Office Visit [facility] [address] [place] [address] Denise Woodson Ra, BARRERA DIRECTOR OF GLOBAL SALES [address] [place], [place] [address] documented as of this encounter Goals Goal [...] Mental Health weekly - PT, OT and COMPLIANCE PROFESSIONAL - PCP appointment 05/26/24 & 06/08/24 - Stroke Neurology Dr. Hoyos 04/14/24 #[phone] - Epilepsy Neurology Dr. Barcenas 05/05/24 follow up recommended in 2 months: 07/05/24 TBD. #[phone] - Vascular Dr. Zambrano 05/01/24 - follow up recommended in 6 months: 11/11/24 TBD #[phone]. - MTM if covered by insurance TBD [...] clinic with 08/04 after hours services available. Environmental Coordinator will remain available as needed. documented as of this encounter Visit Diagnoses Not on filedocumented in this encounter Additional Health Concerns Active Problems Noted Date Diagnosed Date Increased risk of re-admission 02/18/2024 Assessment Noted Time PHQ-9 Depression Total Score: 5 03/17/20 9:45 AM CDT documented as of this encounter Care Teams Tilting Saw Operator Relationship Specialty Start Date End Date Winston Villatoro, OD [facility] [address] [place] [address] PCP - Ophthalmology Ophthalmology 02/11/13 Denise Woodson Ra, APRN DIRECTOR OF GLOBAL SALES [address] [place] [address] PCP - General Family Practice 09/21/20 Denise Woodson Ra, APRN DIRECTOR OF GLOBAL SALES [address] [place] [address] Assigned PCP 07/17/20 Usha Simon APRN DIRECTOR OF GLOBAL SALES 909 [facility] [place] [address] Nurse Practitioner Neurological Surgery 01/24/24 Dangelo Salinas MD [address] [place] [address] Neurology 01/27/24 Anastasia Stearns, RN Lead Environmental Coordinator 02/06/24 Geramine Lopez, W Community Health Worker Primary Care - CC 02/18/24 Robin Zepeda MD 909 [facility] [place] [address] Assigned Neuroscience Provider 03/08/24 05/07/24 documented as of this encounter
--- OUTSIDE RECORDS SUMMARY | 2024-05-14 11:59 | XMS_ITS | Encounter Summary ---
Author Organization [place] Address [address] [place] [address] Care Team Providers Care Hcc Coders Name Role Phone Winston Villatoro OD Unavailable [phone] Denise Woodson Ra, APRN BULL BUCKER Unavailable [phone] Denise Woodson Ra, APRN BULL BUCKER Primary Care Provid er Usha Simon APRN BULL BUCKER Unavailable [phone] Dangelo Salinas MD Unavailable Anastasia Stearns RN Unavailable [phone] Germaine Lopez CHW Unavailable [phone] Robin Zepeda MD Unavailable [phone] Reason for Visit * Rehab Therapy Integrated Services (Routine) - Authorized Specialty Diagnoses / Procedures Referred By Nila shah Referred To Contact Diagnoses Cerebrovascular accident (CVA), unspecified mechanism (H) [address] [address] Referral ID Status Reason Start Date Expiration Date V isits Requested Visits Authorized [id number] Authorized 09/16/2023 09/15/2024 365 365 Encounter Details Date Type Department Care Team (Late st Contact Info) Description 03/26/2024 1:30 PM CDT Therapy Visit [address] [address] Danya You, PA [address] [place] [address] 213 [place] [address] Isabel Beaulieu, OTR [address] [address] Cerebrovascular accident (CVA), unspecified mechanism (H) (Primary [...] How often do you attend religion or adventist serv ices? Never 02/28/2024 Do you belong [...] Answer Date Recorded PHQ-2 Score 0 03/17/2024 [facility] [place] of Occupat ional Health - Occupational Stress [...] 8:30 AM CDT Office Visit [facility] [address] [place] [address] Denise Woodson Ra, COOPERATIVE EXTENSION AGENT BULL BUCKER [address] [place] [address] 06/08/2024 8:30 AM CDT Office Visit [facility] [place] [address] [place] [address] ChintanDenise munroe Ra, COOPERATIVE EXTENSION AGENT BULL BUCKER [address] [facility] [address] documented as of this encounter Goals Goal [...] Mental Health weekly - PT, OT and CARBONATION EQUIPMENT OPERATOR - PCP appointment 05/26/24 & 06/08/24 - Stroke Neurology Dr. Hoyos 04/14/24 #[phone] - Epilepsy Neurology Dr. Barcenas 05/05/24 follow up recommended in 2 months: 07/05/24 TBD. #[phone] - Vascular Dr. Zambrano 05/01/24 - follow up recommended in 6 months: 11/11/24 TBD #[phone]. - MTM if covered by insurance TBD [...] clinic with 24/7 after hours services available. Bar Captain will remain available as needed. documented as of this encounter Visit Diagnoses Diagnosis Cerebrovascular accident (CVA), unspecified mechanism (H)- Primary documented in this encounter Additional Health Concerns Active Problems Noted Date Diagnosed Date Increased risk of re-admission 02/18/2024 Assessment Noted Time PHQ-9 Depression Total Score: 5 03/17/20 24 9:45 AM CDT documented as of this encounter Care Teams Hcc Coders Relationship Specialty Start Date End Date Winston Villatoro OD [facility] [place] [address] [place] [address] PCP - Ophthalmology Ophthalmology 02/11/13 Denise Woodson Ra COOPERATIVE EXTENSION AGENT BULL BUCKER [address] [place] [address] PCP - General Family Practice 09/21/20 Denise Woodson Ra COOPERATIVE EXTENSION AGENT BULL BUCKER [address] [place] [address] Assigned PCP 07/17/20 Usha Simon APRN BULL BUCKER [address] [address] Nurse Practitioner Neurological Surgery 01/24/24 Dangelo Salinas MD [address] [place] [address] Neurology 01/27/24 Anastasia Stearns, RN Lead Bar Captain 02/06/24 Germaine Lpoez, W Community Health Worker Primary Care - CC 02/18/24 Robin Zepeda MD [address] [address] Assigned Neuroscience Provider 03/08/24 05/07/24 documented as of this encounter
--- OUTSIDE RECORDS SUMMARY | 2024-05-14 11:59 | XMS_ITS | Encounter Summary ---
Author Organization [place] Address [address] [place] [address] Care Team Providers Care Flat Examiner Name Role Phone Winston Villatoro OD Unavailable [phone] Denise Woodson Ra, APRN PUMPER GAGER APPRENTICE Unavailable [phone] Denise Woodson Ra, APRN PUMPER GAGER APPRENTICE Primary Care Provid er Usha Simon APRN PUMPER GAGER APPRENTICE Unavailable [phone] Dangelo Salinas MD Unavailable Anastasia Stearns RN Unavailable [phone] Germaine Lopez CHW Unavailable [phone] Robin Zepeda MD Unavailable [phone] Reason for Visit * Rehab Therapy Integrated Services (Routine) - Authorized Specialty Diagnoses / Procedures Referred By Nila shah Referred To Contact Diagnoses Cerebrovascular accident (CVA), unspecified mechanism (H) [address] [address] Referral ID Status Reason Start Date Expiration Date V isits Requested Visits Authorized [id number] Authorized 09/16/2023 09/15/2024 365 365 Encounter Details Date Type Department Care Team (Late st Contact Info) Description 03/17/2024 2:30 PM CDT Therapy Visit [address] [address] Danya You, AMAIRANI [address] [place] [address] 213 [place] [address] Charis Chacon, [facility] [address] [place] [address] Cognitive communication deficit (Primary Dx); Cerebrovascular accident [...] Never 02/28/2024 How often do you attend moravian or mormonism serv ices? Never 02/28/2024 Do you belong to any clubs o r organizations such as moravian groups, unions, fraternal or athletic groups, or [...] Answer Date Recorded PHQ-2 Score 0 03/17/2024 [facility] of Occupat ional Health - Occupational Stress [...] 05/26/2024 8:30 AM CDT Office Visit [facility] [address] [place] [address] Denise Woodson Ra, MOTHER BABY RN PUMPER GAGER APPRENTICE [address] [place] [place] [address] 06/08/2024 8:30 AM CDT Office Visit [facility] [place] [address] [address] [place] [phone] eDnise Woodson Ra, APRN PUMPER GAGER APPRENTICE [address] [place] [address] documented as of this encounter Goals Goal [...] Mental Health weekly - PT, OT and HOT MILL WORKER - PCP appointment 05/26/24 & 06/08/24 - Stroke Neurology Dr. Hoyos 04/14/24 #[phone] - Epilepsy Neurology Dr. Barcenas 05/05/24 follow up recommended in 2 months: 07/05/24 TBD. #[phone] - Vascular Dr. Zambrano 05/01/24 - follow up recommended in 6 months: 11/11/24 TBD #[phone]. - MTM if covered by insurance TBD [...] clinic with 24/7 after hours services available. Draw Fire Operator will remain available as needed. documented as of this encounter Visit Diagnoses Diagnosis Cognitive communication deficit- Primary Cerebrovascular accident (CVA), unspecified mechanism (H) documented in this encounter Additional Health Concerns Active Problems Noted Date Diagnosed Date Increased risk of re-admission 02/18/2024 Assessment Noted Time PHQ-9 Depression Total Score: 5 03/17/20 24 9:45 AM CDT documented as of this encounter Care Teams Flat Examiner Relationship Specialty Start Date End Date Winston Villatoro OD [facility] [place] [address] [place], [place] [address] PCP - Ophthalmology Ophthalmology 02/11/13 Denise Woodson Ra, APRN PUMPER GAGER APPRENTICE [address] [place] [address] PCP - General Family Practice 09/21/20 Denise Woodson Ra, APRN PUMPER GAGER APPRENTICE [address] [place] [address] Assigned PCP 07/17/20 Usha Simon APRN PUMPER GAGER APPRENTICE [address] [place] [address] Nurse Practitioner Neurological Surgery 01/24/24 Dangelo Salinas MD [address] [facility] [address] [place], [place] [address] Neurology 01/27/24 Anastasia Stearns, RN Lead Draw Fire Operator 02/06/24 Germaine Lopez, W Community Health Worker Primary Care - CC 02/18/24 Robin Zepeda MD [address] [address] Assigned Neuroscience Provider 03/08/24 05/07/24 documented as of this encounter
--- OUTSIDE RECORDS SUMMARY | 2024-05-14 12:00 | XMS_ITS | Encounter Summary ---
Author Organization [place] Address [address] [place] [address] Care Team Providers Care Career Development Director Name Role Phone Winston Villatoro OD Unavailable [phone] Denise Woodson Ra, APRN LEGAL SECRETARY RECEPTIONIST Unavailable [phone] Denise Woodson Ra, APRN LEGAL SECRETARY RECEPTIONIST Primary Care Provid er Usha Simon APRN LEGAL SECRETARY RECEPTIONIST Unavailable [phone] Dangelo Salinas MD Unavailable Usha Simon APRN LEGAL SECRETARY RECEPTIONIST Unavailable [phone] Anastasia Stearns RN Unavailable [phone] Germaine Lopez CHW Unavailable [phone] Encounter Details Date Type Department Care Team [...] How often do you attend buddhism or gnosticist serv ices? Never 02/28/2024 Do you belong [...] Answer Date Recorded PHQ-2 Score 4 02/12/2024 [facility] of Occupat ional Health [...] 8:30 AM CDT [facility] [address] [place] [address] Denise Woodson Ra, COPY HOLDER LEGAL SECRETARY RECEPTIONIST [address] [facility], [place] [address] 06/08/2024 8:30 AM CDT Office Visit [facility] [place] [address] [facility] [place] [address] Denise Woodson Ra, BARRERA LEGAL SECRETARY RECEPTIONIST [address] [place], [place] [address] documented as of this encounter Goals Goal [...] Health weekly - PT, OT and SENIOR GAME DESIGNER - PCP appointment 05/26/24 & 06/08/24 - Stroke Neurology Dr. Hoyos 04/14/24 #[phone] - Epilepsy Neurology Dr. Barcenas 05/05/24 follow up recommended in 2 months: 07/05/24 TBD. #[phone] - Vascular Dr. Zambrano 05/01/24 - follow up recommended in 6 months: 11/11/24 TBD #[phone]. - MTM if covered by insurance TBD [...] clinic with / after hours services available. Mold Stamper will remain available as needed. documented as of this encounter Visit Diagnoses Not on filedocumented in this encounter Additional Health Concerns Active Problems Noted Date Diagnosed Date Increased risk of re-admission 02/18/2024 Assessment Noted Time PHQ-9 Depression Total Score: 16 024 3:27 PM CDT documented as of this encounter Care Teams Career Development Director Relationship Specialty Start Date End Date Winston Villatoro, OD [facility] [address] [address] [place] [address] PCP - Ophthalmology Ophthalmology 02/11/13 Denise Woodson Ra, APRN LEGAL SECRETARY RECEPTIONIST [address] [address] [place] [address] PCP - General Family Practice 09/21/20 Denise Woodson Ra, APRN LEGAL SECRETARY RECEPTIONIST [address] [address] [place] [address] Assigned PCP 07/17/20 Usha Simon APRN LEGAL SECRETARY RECEPTIONIST 909 [facility] [place] [address] Nurse Practitioner Neurological Surgery 01/24/24 Dangelo Sailnas MD [address] [place], [place] [address] Neurology 01/27/24 Usha Simon APRN LEGAL SECRETARY RECEPTIONIST 909 [facility] [place], [place] [address] Assigned Neuroscience Provider 02/06/24 03/07/24 Anastasia Stearns, RN Lead Mold Stamper 02/06/24 Germaine Lopez, W Community Health Worker Primary Care - CC 02/18/24 documented as of this encounter
--- OUTSIDE RECORDS SUMMARY | 2024-05-14 12:00 | XMS_ITS | Encounter Summary ---
Author Organization [place] Address [address] [place] [address] Care Team Providers Care Insurance Case Manager Name Role Phone Winston Villatoro OD Unavailable [phone] Denise Woodson Ra, APRN TEACHER TUTOR Unavailable +- [phone] Denise Woodson Ra PAI GOW DEALER TEACHER TUTOR Primary Care Provid er Usha Simon APRN TEACHER TUTOR Unavailable [phone] Dangelo Salinas MD Unavailable Usha Simon APRN TEACHER TUTOR Unavailable [phone] Anastasia Stearns RN Unavailable [phone] Germaine Lopez CHW Unavailable [phone] Reason for Visit * Rehab Therapy Integrated Services (Routine) - Authorized Specialty Diagnoses / Procedures Referred By Nila t Referred To Contact Diagnoses Cerebrovascular accident (CVA), unspecified mechanism (H) [address] [address] Referral ID Status Reason Start Date Expiration Date V isits Requested Visits Authorized [id number] Authorized 09/16/2023 09/15/2024 365 365 Encounter Details Date Type Department Care Team (Late st Contact Info) Description 03/05/2024 4:15 PM CDT Therapy Visit [address] [address] Danya You, PA [address] [place] [address] JIE S[address] [place] [address] Delicia George, PT [address] [place] [address] Cerebrovascular accident (CVA), unspecified mechanism [...] Never 02/28/2024 How often do you attend shinto or yazidi serv ices? Never 02/28/2024 Do you belong to any clubs o r organizations such as shinto groups, unions, fraternal or athletic groups, or [...] Answer Date Recorded PHQ-2 Score 4 02/12/2024 [facility] of Occupat ional Health - Occupational Stress [...] 05/26/2024 8:30 AM CDT [facility] [address] [place] [address] Denise Woodson Ra, PAI GOW DEALER TEACHER TUTOR [address] [place], [place] [address] 06/08/2024 8:30 AM CDT Office Visit [facility] [address] [place] [address] Denise Woodson Ra, PAI GOW DEALER TEACHER TUTOR [address] [place] [address] documented as of this encounter Goals Goal [...] Mental Health weekly - PT, OT and PLATE EMBOSSER - PCP appointment 05/26/24 & 06/08/24 - Stroke Neurology Dr. Hoyos 04/14/24 #[phone] - Epilepsy Neurology Dr. Barcenas 05/05/24 follow up recommended in 2 months: 07/05/24 TBD. #[phone] - Vascular Dr. Zambrano 05/01/24 - follow up recommended in 6 months: 11/11/24 TBD #[phone]. - MTM if covered by insurance TBD [...] clinic with 08/04 after hours services available. Quiller Tender will remain available as needed. documented as of this encounter Visit Diagnoses Diagnosis Cerebrovascular accident (CVA), unspecified mechanism (H)- Primary documented in this encounter Additional Health Concerns Active Problems Noted Date Diagnosed Date Increased risk of re-admission 02/18/2024 Assessment Noted Time PHQ-9 Depression Total Score: 16 024 3:27 PM CDT documented as of this encounter Care Teams Insurance Case Manager Relationship Specialty Start Date End Date Winston Villatoro OD [facility] [address] [facility] [address] [place] [address] PCP - Ophthalmology Ophthalmology 02/11/13 Denise Woodson Ra, APRN TEACHER TUTOR [address] [address] [facility] [place] [address] PCP - General Family Practice 09/21/20 Denise Woodson Ra, APRN TEACHER TUTOR [address] [place] [address] Assigned PCP 07/17/20 Usha Simon APRN TEACHER TUTOR [address] [place] [address] [address] Nurse Practitioner Neurological Surgery 01/24/24 Dangelo Salinas MD [address] [place] [address] Neurology 01/27/24 Usha Simon APRN TEACHER TUTOR 9 [facility] [address] Assigned Neuroscience Provider 02/06/24 03/07/24 Anastasia Stearns, RN Lead Quiller Tender 02/06/24 Germaine Lopez, CHW Community Health Worker Primary Care - CC 02/18/24 documented as of this encounter
--- OUTSIDE RECORDS SUMMARY | 2024-05-14 12:00 | XMS_ITS | Encounter Summary ---
Author Organization [place] Address [address] [place] [address] Care Team Providers Care Skull Splitter Name Role Phone Winston Villatoro OD Unavailable [phone] Denise Woodson Ra, APRN ASSOCIATE PROFESSOR PLANT PATHOLOGY Unavailable +- [phone] Denise Woodson Ra SAP ARIBA CONSULTANT ASSOCIATE PROFESSOR PLANT PATHOLOGY Primary Care Provid er Usha Simon APRN ASSOCIATE PROFESSOR PLANT PATHOLOGY Unavailable [phone] Dangelo Salinas MD Unavailable Usha Simon APRN ASSOCIATE PROFESSOR PLANT PATHOLOGY Unavailable [phone] Anastasia Stearns RN Unavailable [phone] Germaine Lopez CHW Unavailable [phone] Reason for Visit * Rehab Therapy Integrated Services (Routine) - Authorized Specialty Diagnoses / Procedures Referred By Nila t Referred To Contact Diagnoses Cerebrovascular accident (CVA), unspecified mechanism (H) [address] [address] Referral ID Status Reason Start Date Expiration Date V isits Requested Visits Authorized [id number] Authorized 09/16/2023 09/15/2024 365 365 Encounter Details Date Type Department Care Team (Late st Contact Info) Description 03/05/2024 1:30 PM CDT Therapy Visit [address] [address] Danya You, PA [address] [place] [address] J[address] [place] [address] Isabel Beaulieu, OTR [address] [address] Cerebrovascular accident (CVA), unspecified mechanism (H) (Primary [...] How often do you attend restorationism or denominational serv ices? Never 02/28/2024 Do [...] Answer Date Recorded PHQ-2 Score 4 02/12/2024 [facility] of Occupat ional Health - Occupational Stress [...] Office Visit [facility] [address] [place] [address] Denise Woodson Ra, SAP ARIBA CONSULTANT ASSOCIATE PROFESSOR PLANT PATHOLOGY [address] [place] [address] 06/08/2024 8:30 AM CDT Office Visit [facility] [place] [address] [place] [address] Denise Woodson Ra, BARRERA ASSOCIATE PROFESSOR PLANT PATHOLOGY [address] [facility] [address] documented as of this encounter Goals Goal [...] Mental Health weekly - PT, OT and UTILITY PERSON - PCP appointment 05/26/24 & 06/08/24 - Stroke Neurology Dr. Hoyos 04/14/24 #[phone] - Epilepsy Neurology Dr. Barcenas 05/05/24 follow up recommended in 2 months: 07/05/24 TBD. #[phone] - Vascular Dr. Zambrano 05/01/24 - follow up recommended in 6 months: 11/11/24 TBD #[phone]. - MTM if covered by insurance TBD [...] clinic with 24/7 after hours services available. Belly Roller will remain available as needed. documented as of this encounter Visit Diagnoses Diagnosis Cerebrovascular accident (CVA), unspecified mechanism (H)- Primary documented in this encounter Additional Health Concerns Active Problems Noted Date Diagnosed Date Increased risk of re-admission 02/18/2024 Assessment Noted Time PHQ-9 Depression Total Score: 16 024 3:27 PM CDT documented as of this encounter Care Teams Skull Splitter Relationship Specialty Start Date End Date Winston Villatoro OD [facility] [place] [address] [place] [address] PCP - Ophthalmology Ophthalmology 02/11/13 Denise Woodson Ra SAP ARIBA CONSULTANT ASSOCIATE PROFESSOR PLANT PATHOLOGY [address] [place] [address] PCP - General Family Practice 09/21/20 Denise Woodson Ra SAP ARIBA CONSULTANT ASSOCIATE PROFESSOR PLANT PATHOLOGY [address] [place] [address] Assigned PCP 07/17/20 Usha Simon APRN ASSOCIATE PROFESSOR PLANT PATHOLOGY [address] [address] Nurse Practitioner Neurological Surgery 01/24/24 Dangelo Salinas MD [address] [place] [address] Neurology 01/27/24 Usha Simon APRN ASSOCIATE PROFESSOR PLANT PATHOLOGY [address] [address] Assigned Neuroscience Provider 02/06/24 03/07/24 Anastasia Stearns, RN Lead Belly Roller 02/06/24 Germaine Lopez, CHW Community Health Worker Primary Care - CC 02/18/24 documented as of this encounter
--- OUTSIDE RECORDS SUMMARY | 2024-05-14 12:00 | XMS_ITS | Encounter Summary ---
Author Organization [facility] Address [address] [place] [address] Care Team Providers Care Production Machine Operator Name Role Phone Winston Villatoro OD Unavailable [phone] Denise Woodson Ra, APRN HEAD BOYS TENNIS COACH Unavailable [phone] Denise Woodson Ra, APRN HEAD BOYS TENNIS COACH Primary Care Provid er Usha Simon APRN HEAD BOYS TENNIS COACH Unavailable [phone] Dangelo Salinas MD Unavailable Usha Simon APRN HEAD BOYS TENNIS COACH Unavailable [phone] Anastasia Stearns RN Unavailable [phone] Germaine Lopez CHW Unavailable Encounter Details Date [...] How often do you attend samaritan or sabianism serv ices? Never 02/28/2024 Do you belong [...] Answer Date Recorded PHQ-2 Score 4 02/12/2024 [facility] of Occupat ional Health - Occupational [...] [facility] [address] [place] [address] Denise Woodson Ra, TRANSPORTATION MAINTENANCE SUPERVISOR HEAD BOYS TENNIS COACH [address] [facility], [place] [address] 06/08/2024 8:30 AM CDT Office Visit [facility] [place] [address] [facility] [address] Denise Woodson Ra, BARRERA HEAD BOYS TENNIS COACH [address] [place], [place] [address] documented as of this encounter Goals Goal [...] Mental Health weekly - PT, OT and MOTION STUDY ENGINEER - PCP appointment 05/26/24 & 06/08/24 - Stroke Neurology Dr. Hoyos 04/14/24 #[phone] - Epilepsy Neurology Dr. Barcenas 05/05/24 follow up recommended in 2 months: 07/05/24 TBD. #[phone] - Vascular Dr. Zambrano 05/01/24 - follow up recommended in 6 months: 11/11/24 TBD #[phone]. - MTM if covered by insurance TBD [...] clinic with / after hours services available. Clerk will remain available as needed. documented as of this encounter Visit Diagnoses Not on filedocumented in this encounter Additional Health Concerns Active Problems Noted Date Diagnosed Date Increased risk of re-admission 02/18/2024 Assessment Noted Time PHQ-9 Depression Total Score: 16 024 3:27 PM CDT documented as of this encounter Care Teams Production Machine Operator Relationship Specialty Start Date End Date Winston Villatoro, OD [facility] [address] [facility] [address] [place] [address] PCP - Ophthalmology Ophthalmology 02/11/13 Denise Woodson Ra, APRN HEAD BOYS TENNIS COACH [address] [address] [place] [address] PCP - General Family Practice 09/21/20 Denise Woodson Ra, APRN HEAD BOYS TENNIS COACH [address] [address] [place] [address] Assigned PCP 07/17/20 Usha Simon APRN HEAD BOYS TENNIS COACH 909 [id number] [place] [address] Nurse Practitioner Neurological Surgery 01/24/24 Dangelo Salinas MD [address] [place], [place] [address] Neurology 01/27/24 Usha Simon APRN HEAD BOYS TENNIS COACH 909 [id number] [place], [place] [address] Assigned Neuroscience Provider 02/06/24 03/07/24 Anastasia Stearns, RN Lead Clerk 02/06/24 Germaine Lopez, W Community Health Worker Primary Care - CC 02/18/24 documented as of this encounter
--- OUTSIDE RECORDS SUMMARY | 2024-05-14 12:00 | XMS_ITS | Encounter Summary ---
Author Organization [facility] Address [address] [place] [address] Care Team Providers Care Shake Sawyer Name Role Phone Winston Villatoro OD Unavailable [phone] Denise Woodson Ra, APRN CELL PLASTERER Unavailable + [phone] Denise Woodson Ra, APRN CELL PLASTERER Primary Care Provid er Usha Simon APRN CELL PLASTERER Unavailable + [phone] Dangelo Salinas MD Unavailable Anastasia Stearns RN Unavailable [phone] Germaine Lopez CHW Unavailable [phone] Robin Zepeda MD Unavailable [phone] Lisa Zambrano MD Unavailable + [phone] Raul Hoyos MD Unavailable [phone] Encounter Details Date Type Department Care Team (Late st Contact Info) Description 03/16/2024 [facility] Medical Advice [facility] Neurology Clinic [address] 3[address] [place] [address] Ora Bazan Social History Tobacco [...] often do you attend oriental orthodox or adventist serv ices? Never 02/28/2024 Do [...] Answer Date Recorded PHQ-2 Score 0 03/17/2024 [facility] of Occupat ional Health - [...] AM CDT Office Visit [facility] [address] [place] [address] Denise Woodson Ra, APRN CELL PLASTERER [address] [place] [address] 06/08/2024 8:30 AM CDT Office Visit [facility] [address] [place] [address] Denise Woodson Ra, APRN CELL PLASTERER [address] [place] [address] documented as of this encounter Goals Goal [...] Mental Health weekly - PT, OT and SPOTLIGHT OPERATOR - PCP appointment 05/26/24 & 06/08/24 - Stroke Neurology Dr. Hoyos 04/14/24 #[phone] - Epilepsy Neurology Dr. Barcenas 05/05/24 follow up recommended in 2 months: 07/05/24 TBD. #[phone] - Vascular Dr. Zambrano 05/01/24 - follow up recommended in 6 months: 11/11/24 TBD #[phone]. - MTM if covered by insurance TBD [...] clinic with 24/7 after hours services available. Hoop Bending Machine Operator will remain available as needed. documented as of this encounter Visit Diagnoses Not on filedocumented in this encounter Additional Health Concerns Active Problems Noted Date Diagnosed Date Increased risk of re-admission 02/18/2024 Assessment Noted Time PHQ-9 Depression Total Score: 16 024 3:27 PM CDT documented as of this encounter Care Teams Shake Sawyer Relationship Specialty Start Date End Date Winston Villatoro OD [facility] [address] [place] [address] PCP - Ophthalmology Ophthalmology 02/11/13 Denise Woodson Ra, BALL ROLLING MACHINE OPERATOR CELL PLASTERER [address] [address] [address] PCP - General Family Practice 09/21/20 Denise Woodson Ra, APRN CELL PLASTERER [address] [address] [place] [address] Assigned PCP 07/17/20 Usha Simon APRN CELL PLASTERER [address] [address] Nurse Practitioner Neurological Surgery 01/24/24 Dangelo Salinas MD [address] [place] [address] Neurology 01/27/24 Anastasia Stearns, RN Lead Hoop Bending Machine Operator 02/06/24 Germaine Lopez, [facility] Community Health Worker Primary Care - CC 02/18/24 Robin Zepeda MD [address] [address] Assigned Neuroscience Provider 03/08/24 05/07/24 Lisa Zambrano MD [address] [place] [place] [address] Assigned Heart and Vascular Provider 05/08/24 Raul Hoyos MD [address] [address]120[address] Assigned Neuroscience Provider 05/08/24 documented as of this encounter
--- OUTSIDE RECORDS SUMMARY | 2024-05-14 12:00 | XMS_ITS | Encounter Summary ---
Author Organization [facility] Address [address] [place] [address] Care Team Providers Care General Duty Nurse Name Role Phone Winston Villatoro OD Unavailable [phone] Denise Woodson Ra, APRN REAL ESTATE PROFESSOR Unavailable +- [phone] Denise Woodson Ra, APRN REAL ESTATE PROFESSOR Primary Care Provid er Usha Simon APRN REAL ESTATE PROFESSOR Unavailable [phone]- [phone] Dangelo Salinas MD Unavailable Anastasia Stearns RN Unavailable [phone] Germaine Lopez CHW Unavailable Robin Zepeda MD Unavailable [phone] Reason for Visit * Reason Onset Date Comments Appointment 03/16/2024 Follow up Encounter Details Date Type Department Care Team ([facility] st Contact Info) Description 03/16/2024 Telephone [facility] Neurology Clinic [address] 3[address] [place] [address] Raul Hoyos MD [address] [place] [address] [id number] [place] [address] Appointment (Follow up ) Social [...] How often do you attend christian or zoroastrianism serv ices? Never 02/28/2024 Do [...] Answer Date Recorded PHQ-2 Score 0 03/17/2024 [facility] [place] of Occupat ional Health - Occupational Stress [...] - slot on hold Specialty phone number: [phone] Additional appointment(s) needed: n/a Additonal Notes: Schedule with Dr. Hoyos on 04/14/24 at 0930 for a video visit and remove hold once complete. Thanks! Stacey Bazan on 03/16/2024 at 9:54 AM documented in this encounter Plan of Treatment Upcoming Encounters Date Type Department Care Team (Late st Contact Info) Description 05/26/2024 8:30 AM CDT [facility] [address] [place] [address] Denise Woodson Ra, TIME STAMP ASSEMBLER REAL ESTATE PROFESSOR [address] [facility] [place], [place] [address] 06/08/2024 8:30 AM CDT Office Visit [facility] [place] [address] [place] [address] Denise Woodson Ra, BARRERA REAL ESTATE PROFESSOR [address] [place], [place] 158[address] documented as of this encounter Goals Goal [...] Mental Health weekly - PT, OT and CONCRETE POURING SUPERVISOR - PCP appointment 05/26/24 & 06/08/24 - Stroke Neurology Dr. Hoyos 04/14/24 #[phone] - Epilepsy Neurology Dr. Barcenas 05/05/24 follow up recommended in 2 months: 07/05/24 TBD. #[phone] - Vascular Dr. Zambrano 05/01/24 - follow up recommended in 6 months: 11/11/24 TBD #[phone]. - MTM if covered by insurance TBD [...] with 24/7 after hours services available. Director Of Research will remain available as needed. documented as of this encounter Visit Diagnoses Not on filedocumented in this encounter Additional Health Concerns Active Problems Noted Date Diagnosed Date Increased risk of re-admission 02/18/2024 Assessment Noted Time PHQ-9 Depression Total Score: 16 024 3:27 PM CDT documented as of this encounter Care Teams General Duty Nurse Relationship Specialty Start Date End Date Shauna Winstongabino Saez OD [facility] [place] [address] [place] [address] PCP - Ophthalmology Ophthalmology 02/11/13 Denise Woodson Ra, APRN REAL ESTATE PROFESSOR [address] [place] [address] PCP - General Family Practice 09/21/20 Denise Woodson Ra, APRN REAL ESTATE PROFESSOR [address] [facility] [address] Assigned PCP 07/17/20 Usha Simon APRN REAL ESTATE PROFESSOR 909 [facility] [id number] [place] [address] Nurse Practitioner Neurological Surgery 01/24/24 Dangelo Salinas MD [address] [place] [address] Neurology 01/27/24 Anastasia Stearns, RN Lead Director Of Research 02/06/24 Germaine Lopez, CHW Community Health Worker Primary Care - CC 02/18/24 Robin Zepeda MD 909 [facility] [id number] [place] [address] Assigned Neuroscience Provider 03/08/24 05/07/24 documented as of this encounter
--- OUTSIDE RECORDS SUMMARY | 2024-05-14 12:00 | XMS_ITS | Encounter Summary ---
Author Organization [facility] Address [address] [place] [address] Care Team Providers Care Phlebotomist Associate Name Role Phone Winston Villatoro OD Unavailable [phone] Denise Woodson Ra, APRN CAR PINCHER Unavailable [phone] Denise Woodson Ra, APRN CAR PINCHER Primary Care Provid er Usha Simon APRN CAR PINCHER Unavailable [phone] Dangelo Salinas MD Unavailable Anastasia Stearns RN Unavailable [phone] Germaine Lopez CHW Unavailable [phone] Robin Zepeda MD Unavailable [phone] Reason for Visit * Rehab Therapy Integrated Services (Routine) - Authorized Specialty Diagnoses / Procedures Referred By Nila shah Referred To Contact Diagnoses Cerebrovascular accident (CVA), unspecified mechanism (H) [address] [address] Referral ID Status Reason Start Date Expiration Date V isits Requested Visits Authorized [id number] Authorized 09/16/2023 09/15/2024 365 365 Encounter Details Date Type Department Care Team (Late st Contact Info) Description 03/11/2024 2:15 PM CDT Therapy Visit [address] [address] Danya You, AMAIRANI [address] [place] [address] 213 [place] [address] Isabel Beaulieu, OTR [address] [address] Cerebrovascular accident (CVA), unspecified mechanism (H) (Primary [...] How often do you attend cheondoism or faith serv ices? Never 02/28/2024 Do [...] Answer Date Recorded PHQ-2 Score 4 02/12/2024 [facility] [place] of Occupat ional Health - Occupational Stress [...] (e.g. SBT, MoCA), SDMT, BiVaba Scan Course, [place] Making, Dynavision (all modes), foot tap measure, [...] tasks safely and accurately (e.g. meal preparation, director financial planning, medication management, driving, work). Rationale In order [...] Goal Progress Goal added and progressing. Administered [employer] part 1 activity with pt 100% [...] detail, memory, divided/alternating attention, sequencing, prioritization), facilitated [employer] executive function activity with pt completing part 1 (alphabetizing, quantity of each order, total quantity for the month) with distractions throughout to simulate realistic, busy home/workenvironment. Pt 100% accurate today with alphabetizing, calculating individual quantities, and calculating total quantity without use of calculator. Pt does well with staying on task, managing and organizing information for [employer], using strategies of chunking information to calculate total quantity, and using extra paper to organize her thoughts. Will plan to further progress in future sessions. Patient Response/Progress Alcon reports feeling really good after [employer] activity today - You challenged me in all the right ways today, and it felt good. Thank you! Goals 4-5 progressing Cognitive Skills Intervention 1st 15 Minutes Timed (78035) 15 Skilled Intervention Skilled facilitation of executive function task to promote skills for IND withhigher level IADL and work-based tasks Therapeutic Activity Therapeutic Activity Minutes (91849) 30 Skilled Intervention Skilled reassessment, education in [...] Description 05/26/2024 8:30 AM CDT [facility] [address] [place] [address] Denise Woodson Ra, RETAIL PLANNING MANAGER CAR PINCHER [address] [place], [place] [address] 06/08/2024 8:30 AM CDT [facility] [address] [place] [address] Denise Woodson Ra, RETAIL PLANNING MANAGER CAR PINCHER [address] [place] [address] documented as of this encounter Goals Goal [...] Mental Health weekly - PT, OT and SPREAD CUTTER - PCP appointment 05/26/24 & 06/08/24 - Stroke Neurology Dr. Hoyos 04/14/24 #[phone] - Epilepsy Neurology Dr. Barcenas 05/05/24 follow up recommended in 2 months: 07/05/24 TBD. #[phone] - Vascular Dr. Zambrano 05/01/24 - follow up recommended in 6 months: 11/11/24 TBD #[phone]. - MTM if covered by insurance TBD [...] clinic with 24/7 after hours services available. Claim Clinician will remain available as needed. documented as of this encounter Visit Diagnoses Diagnosis Cerebrovascular accident (CVA), unspecified mechanism (H)- Primary documented in this encounter Additional Health Concerns Active Problems Noted Date Diagnosed Date Increased risk of re-admission 02/18/2024 Assessment Noted Time PHQ-9 Depression Total Score: 16 024 3:27 PM CDT documented as of this encounter Care Teams Phlebotomist Associate Relationship Specialty Start Date End Date Winston Villatoro OD [facility] [place] [address] [place] [address] PCP - Ophthalmology Ophthalmology 02/11/13 Denise Woodson Ra, RETAIL PLANNING MANAGER CAR PINCHER [address] [place] [address] PCP - General Family Practice 09/21/20 Denise Woodson Ra, RETAIL PLANNING MANAGER CAR PINCHER [address] [place] [address] Assigned PCP 07/17/20 Usha Simon APRN CAR PINCHER [address] [place] [address] Nurse Practitioner Neurological Surgery 01/24/24 Dangelo Salinas MD [address] [place], [place] [address] Neurology 01/27/24 Anastasia Stearns, RN Lead Claim Clinician 02/06/24 Germaine Lopez, W Community Health Worker Primary Care - CC 02/18/24 Robin Zepeda MD [address] [place] [address] Assigned Neuroscience Provider 03/08/24 05/07/24 documented as of this encounter
--- OUTSIDE RECORDS SUMMARY | 2024-05-14 12:00 | XMS_ITS | Encounter Summary ---
Author Organization [facility] Address [address] [place] [address] Care Team Providers Care Executive Chef Name Role Phone Winston Villatoro OD Unavailable [phone] Denise Woodson Ra, APRN DESK CLERK Unavailable [phone] Denise Woodson Ra PICKER TENDER HELPER DESK CLERK Primary Care Provid er Usha Simon APRN DESK CLERK Unavailable [phone] Dangelo Salinas MD Unavailable Usha Simon APRN DESK CLERK Unavailable [phone] Anastasia Stearns RN Unavailable [phone] Germaine Lopez CHW Unavailable [phone] Reason for Visit * Rehab Therapy Integrated Services (Routine) - Authorized Specialty Diagnoses / Procedures Referred By Nila t Referred To Contact Diagnoses Cerebrovascular accident (CVA), unspecified mechanism (H) [address] [address] Referral ID Status Reason Start Date Expiration Date V isits Requested Visits Authorized [id number] Authorized 09/16/2023 09/15/2024 365 365 Encounter Details Date Type Department Care Team (Latest Contact Info) Description 03/05/2024 3:15 PM CDT Therapy Visit [address] [address] Danya You, PA [address] [place] [address] [place], [place] [address] [address] [place] [address] Charis Chacon, [facility] [address] [place] [address] Cerebrovascular accident (CVA), unspecified mechanism (H) (Primary [...] How often do you attend yazdanism or protestant serv ices? Never 02/28/2024 Do [...] Answer Date Recorded PHQ-2 Score 4 02/12/2024 [facility] [place] of Occupat ional Health - Occupational Stress [...] Description 05/26/2024 8:30 AM CDT Office Visit [address] [address] Denise Woodson Ra, PICKER TENDER HELPER DESK CLERK [address] [address] [place] [address] 06/08/2024 8:30 AM CDT Office Visit [facility] [place] [address] [address] [place] [phone] Denise Woodson Ra, APRN DESK CLERK [address] [address] [place] [address] documented as of this encounter Goals Goal [...] Mental Health weekly - PT, OT and LADLE CLEANER - PCP appointment 05/26/24 & 06/08/24 - Stroke Neurology Dr. Hoyos 04/14/24 #[phone] - Epilepsy Neurology Dr. Barcenas 05/05/24 follow up recommended in 2 months: 07/05/24 TBD. #[phone] - Vascular Dr. Zambrano 05/01/24 - follow up recommended in 6 months: 11/11/24 TBD #[phone]. - MTM if covered by insurance TBD [...] clinic with 24/7 after hours services available. Seed Laboratory Assistant will remain available as needed. documented as of this encounter Visit Diagnoses Diagnosis Cerebrovascular accident (CVA), unspecified mechanism (H)- Primary Cognitive communication deficit documented in this encounter Additional Health Concerns Active Problems Noted Date Diagnosed Date Increased risk of re-admission 02/18/2024 Assessment Noted Time PHQ-9 Depression Total Score: 16 024 3:27 PM CDT documented as of this encounter Care Teams Executive Chef Relationship Specialty Start Date End Date Winston Villatoro OD [facility] Dilliner [address] [place] [address] PCP - Ophthalmology Ophthalmology 02/11/13 Denise Woodson Ra, APRN DESK CLERK [address] [place] [address] PCP - General Family Practice 09/21/20 Denise Woodson Ra, APRN DESK CLERK [address] [place] [address] Assigned PCP 07/17/20 Usha Simon APRN DESK CLERK [address] [place] [address] Nurse Practitioner Neurological Surgery 01/24/24 Dangelo Salinas MD [address] [id number] Neurology 01/27/24 Usha Simon APRN DESK CLERK [address] [address] Assigned Neuroscience Provider 02/06/24 03/07/24 Anastasia Stearns, RN Lead Seed Laboratory Assistant 02/06/24 Germaine Lopez, W Community Health Worker Primary Care - CC 02/18/24 documented as of this encounter
--- OUTSIDE RECORDS SUMMARY | 2024-05-14 12:00 | XMS_ITS | Encounter Summary ---
Author Organization [facility] Address [address] [place] [address] Care Team Providers Care Resource Room Special Education Teacher Name Role Phone ShaunaWinston moralez OD Unavailable [phone] Denise Woodson Ra, APRN ASSEMBLY DEPARTMENT SUPERVISOR Unavailable [phone] Denise Woodson Ra, APRN ASSEMBLY DEPARTMENT SUPERVISOR Primary Care Provid er Usha Simon APRN ASSEMBLY DEPARTMENT SUPERVISOR Unavailable [phone] Dangelo Salinas MD Unavailable Anastasia Stearns RN Unavailable [phone] Germaine Lopez CHW Unavailable [phone] Robin Zepeda MD Unavailable [phone] Encounter Details Date Type Department Care Team [...] How often do you attend cheondoism or taoist serv ices? Never 02/28/2024 Do [...] Answer Date Recorded PHQ-2 Score 4 02/12/2024 [facility] of Occupat ional Health - [...] AM CDT [facility] [address] [place] [phone] Denise Woodson Ra, RN ON SITE ASSEMBLY DEPARTMENT SUPERVISOR [address] [place], [place] 5[address] 06/08/2024 8:30 AM CDT Office Visit [facility] [place] [address] [place] [address] Denise Woodson Ra, BARRERA ASSEMBLY DEPARTMENT SUPERVISOR [address] [place], [place] [id number] documented as of this encounter Goals Goal [...] Mental Health weekly - PT, OT and JOURNEYMAN ELECTRICIAN PV INSTALLER - PCP appointment 05/26/24 & 06/08/24 - Stroke Neurology Dr. Hoyos 04/14/24 #[phone] - Epilepsy Neurology Dr. Barcenas 05/05/24 follow up recommended in 2 months: 07/05/24 TBD. #[phone] - Vascular Dr. Zambrano 05/01/24 - follow up recommended in 6 months: 11/11/24 TBD #[phone]. - MTM if covered by insurance TBD [...] clinic with / after hours services available. Steel Layer will remain available as needed. documented as of this encounter Visit Diagnoses Not on filedocumented in this encounter Additional Health Concerns Active Problems Noted Date Diagnosed Date Increased risk of re-admission 02/18/2024 Assessment Noted Time PHQ-9 Depression Total Score: 16 024 3:27 PM CDT documented as of this encounter Care Teams Resource Room Special Education Teacher Relationship Specialty Start Date End Date Winston Villatoro, OD [facility] [address] [place] [address] PCP - Ophthalmology Ophthalmology 02/11/13 Denise Woodson Ra, APRN ASSEMBLY DEPARTMENT SUPERVISOR [address] [place] [place] [address] PCP - General Family Practice 09/21/20 Denise Woodson Ra, APRN ASSEMBLY DEPARTMENT SUPERVISOR [address] [place] [address] Assigned PCP 07/17/20 Usha Simon APRN ASSEMBLY DEPARTMENT SUPERVISOR 909 [id number] [place] [address] Nurse Practitioner Neurological Surgery 01/24/24 Dangelo Salinas MD [address] [place] [address] Neurology 01/27/24 Anastasia Stearns, RN Lead Steel Layer 02/06/24 Germaine Lopez, W Community Health Worker Primary Care - CC 02/18/24 Robin Zepeda MD 909 [facility] [place] [address] Assigned Neuroscience Provider 03/08/24 05/07/24 documented as of this encounter
--- OUTSIDE RECORDS SUMMARY | 2024-05-14 12:00 | XMS_ITS | Encounter Summary ---
Author Organization [facility] Address [address] [place] [address] Care Team Providers Care Heliotherapist Name Role Phone Winston Villatoro OD Unavailable [phone] Denise Woodson Ra, APRN STOCKROOM SELECTOR Unavailable [phone] Denise Woodson Ra, APRN STOCKROOM SELECTOR Primary Care Provid er Usha Simon APRN STOCKROOM SELECTOR Unavailable [phone] Dangelo Salinas MD Unavailable Anastasia Stearns RN Unavailable [phone] Germaine Lopez CHW Unavailable [phone] Robin Zepeda MD Unavailable [phone] Reason for Visit * Rehab Therapy Integrated Services (Routine) - Authorized Specialty Diagnoses / Procedures Referred By Nila shah Referred To Contact Diagnoses Cerebrovascular accident (CVA), unspecified mechanism (H) [address] [address] Referral ID Status Reason Start Date Expiration Date V isits Requested Visits Authorized [id number] Authorized 09/16/2023 09/15/2024 365 365 Encounter Details Date Type Department Care Team (Late st Contact Info) Description 03/11/2024 3:00 PM CDT Therapy Visit [address] [phone] Danya You, AMAIRANI [address] [place] [address] 213 [place] [address] Charis Chacon, [facility] [address] [place] [address] Cognitive communication deficit (Primary Dx); Cerebrovascular accident [...] How often do you attend jainism or mu-ism serv ices? Never 02/28/2024 Do you belong [...] Answer Date Recorded PHQ-2 Score 4 02/12/2024 [facility] of Occupat ional Health - Occupational Stress [...] Description 05/26/2024 8:30 AM CDT Office Visit [facility] [address] [place] [address] Denise Woodson Ra, DETECTIVE CHIEF STOCKROOM SELECTOR [address] [address] [place] [address] 06/08/2024 8:30 AM CDT Office Visit [facility] [place] [address] [address] [place] [phone] Denise Woodson Ra, APRN STOCKROOM SELECTOR [address] [place] [address] documented as of this encounter Goals Goal [...] Mental Health weekly - PT, OT and BLOOD BANK CREDIT CLERK - PCP appointment 05/26/24 & 06/08/24 - Stroke Neurology Dr. Hoyos 04/14/24 #[phone] - Epilepsy Neurology Dr. Barcenas 05/05/24 follow up recommended in 2 months: 07/05/24 TBD. #[phone] - Vascular Dr. Zambrano 05/01/24 - follow up recommended in 6 months: 11/11/24 TBD #[phone]. - MTM if covered by insurance TBD [...] clinic with 24/7 after hours services available. Project Management Manager will remain available as needed. documented as of this encounter Visit Diagnoses Diagnosis Cognitive communication deficit- Primary Cerebrovascular accident (CVA), unspecified mechanism (H) documented in this encounter Additional Health Concerns Active Problems Noted Date Diagnosed Date Increased risk of re-admission 02/18/2024 Assessment Noted Time PHQ-9 Depression Total Score: 16 024 3:27 PM CDT documented as of this encounter Care Teams Heliotherapist Relationship Specialty Start Date End Date Winston Villatoro OD [facility] Amelia [address] [place] [address] PCP - Ophthalmology Ophthalmology 02/11/13 Denise Woodson Ra, APRN STOCKROOM SELECTOR [address] [place] [address] PCP - General Family Practice 09/21/20 Denise Woodson Ra, APRN STOCKROOM SELECTOR [address] [place] [address] Assigned PCP 07/17/20 Usha Simon APRN STOCKROOM SELECTOR [address] [place] [address] Nurse Practitioner Neurological Surgery 01/24/24 Dangelo Salinas MD [address] [facility] [address] [place], [place] [id number] Neurology 01/27/24 Anastasia Stearns, RN Lead Project Management Manager 02/06/24 Germaine Lopez, W Community Health Worker Primary Care - CC 02/18/24 Robin Zepeda MD [address] [address] Assigned Neuroscience Provider 03/08/24 05/07/24 documented as of this encounter
--- OUTSIDE RECORDS SUMMARY | 2024-05-14 12:00 | XMS_ITS | Encounter Summary ---
Author Organization [facility] Address [address] [place] [address]. [place] [address] Care Team Providers Care Crabbing Machine Operator Name Role Phone Winston Villatoro OD Unavailable [phone] Denise Woodson Ra, APRN CIGARETTE SELLER Unavailable [phone] Denise Woodson Ra, APRN CIGARETTE SELLER Primary Care Provid er Usha Simon APRN CIGARETTE SELLER Unavailable [phone] Dangelo Salinas MD Unavailable Anastasia Stearns RN Unavailable [phone] Germaine Lopez CHW Unavailable [phone] Robin Zepeda MD Unavailable [phone] Reason for Visit * Rehab Therapy Integrated Services (Routine) - Authorized Specialty Diagnoses / Procedures Referred By Nila shah Referred To Contact Diagnoses Cerebrovascular accident (CVA), unspecified mechanism (H) [address] [address] Referral ID Status Reason Start Date Expiration Date V isits Requested Visits Authorized [id number] Authorized 09/16/2023 09/15/2024 365 365 Encounter Details Date Type Department Care Team (Latest Contact Info) Description 03/17/2024 4:00 PM CDT Therapy Visit [address] [address] Danya You PA [address] [place] [address] 213 [place] [address] Vanessa Duggan PT Cerebrovascular accident (CVA), unspecified [...] How often do you attend hoahaoism or restorationist serv ices? Never 02/28/2024 Do [...] Answer Date Recorded PHQ-2 Score 0 03/17/2024 [facility] of Occupat ional Health - Occupational Stress [...] Description 05/26/2024 8:30 AM CDT Office Visit [facility] [address] [place] [address] Denise Woodson Ra, FUNERAL DRIVER CIGARETTE SELLER [address] [place] [address] 06/08/2024 8:30 AM CDT [facility] [address] [place] [address] Denise Woodson Ra, FUNERAL DRIVER CIGARETTE SELLER [address] [facility] [place], [place] [address] documented as of this encounter Goals Goal [...] Mental Health weekly - PT, OT and FLANGING MACHINE OPERATOR - PCP appointment 05/26/24 & 06/08/24 - Stroke Neurology Dr. Hoyos 04/14/24 #[phone] - Epilepsy Neurology Dr. Barcenas 05/05/24 follow up recommended in 2 months: 07/05/24 TBD. #[phone] - Vascular Dr. Zambrano 05/01/24 - follow up recommended in 6 months: 11/11/24 TBD #[phone]. - MTM if covered by insurance TBD [...] clinic with / after hours services available. Museum Host/Hostess will remain available as needed. documented as of this encounter Visit Diagnoses Diagnosis Cerebrovascular accident (CVA), unspecified mechanism (H)- Primary documented in this encounter Additional Health Concerns Active Problems Noted Date Diagnosed Date Increased risk of re-admission 02/18/2024 Assessment Noted Time PHQ-9 Depression Total Score: 5 03/17/20 24 9:45 AM CDT documented as of this encounter Care Teams Crabbing Machine Operator Relationship Specialty Start Date End Date Winston Villatoro OD [facility] [place] [address] [place] [address] PCP - Ophthalmology Ophthalmology 02/11/13 Denise Woodson Ra, APRN CIGARETTE SELLER [address] [place] [address] PCP - General Family Practice 09/21/20 Denise Woodson Ra, APRN CIGARETTE SELLER [address] [place] [address] Assigned PCP 07/17/20 Usha Simon APRN CIGARETTE SELLER [address] [place] [address] Nurse Practitioner Neurological Surgery 01/24/24 Dangelo Salinas MD [address] [facility] [address] [facility] 200 [place] [address] Neurology 01/27/24 Anastasia Stearns, RN Lead Museum Host/Hostess 02/06/24 Germaine Lopez, CHW Community Health Worker Primary Care - CC 02/18/24 Robin Zepeda MD [address] [place] [address] Assigned Neuroscience Provider 03/08/24 05/07/24 documented as of this encounter
--- OUTSIDE RECORDS SUMMARY | 2024-05-14 12:00 | XMS_ITS | Encounter Summary ---
Author Organization [facility] Address [address] [place] [address] Care Team Providers Care Day Care Home Provider Name Role Phone Winston Villatoro OD Unavailable [phone] Denise Woodson Ra, APRN FIELD PLACEMENT DIRECTOR Unavailable [phone] Denise Woodson Ra, APRN FIELD PLACEMENT DIRECTOR Primary Care Provid er Usha Simon APRN FIELD PLACEMENT DIRECTOR Unavailable [phone] Dangelo Salinas MD Unavailable Usha Simon APRN FIELD PLACEMENT DIRECTOR Unavailable [phone] Anastasia Stearns RN Unavailable [phone] Germaine Lopez CHW Unavailable [phone] Encounter Details Date Type Department Care Team [...] How often do you attend hinduism or sabianism serv ices? Never 02/28/2024 Do [...] Answer Date Recorded PHQ-2 Score 4 02/12/2024 [facility] of Occupat ional Health [...] Description 05/26/2024 8:30 AM CDT [facility] [address] [place] [phone] Denise Woodson Ra, INDEPENDENT INSURANCE ADJUSTER FIELD PLACEMENT DIRECTOR [address] [facility], [place] [id number] 06/08/2024 8:30 AM CDT Office Visit [facility] [place] [address] [place] [address] Denise Woodson Ra, BARRERA FIELD PLACEMENT DIRECTOR [address] [place], [place] [address] documented as of this encounter Goals Goal [...] Mental Health weekly - PT, OT and FINISHING OPERATOR - PCP appointment 05/26/24 & 06/08/24 - Stroke Neurology Dr. Hoyos 04/14/24 #[phone] - Epilepsy Neurology Dr. Barcenas 05/05/24 follow up recommended in 2 months: 07/05/24 TBD. #[phone] - Vascular Dr. Zambrano 05/01/24 - follow up recommended in 6 months: 11/11/24 TBD #[phone]. - MTM if covered by insurance TBD [...] clinic with / after hours services available. Or Rn will remain available as needed. documented as of this encounter Visit Diagnoses Not on filedocumented in this encounter Additional Health Concerns Active Problems Noted Date Diagnosed Date Increased risk of re-admission 02/18/2024 Assessment Noted Time PHQ-9 Depression Total Score: 16 024 3:27 PM CDT documented as of this encounter Care Teams Day Care Home Provider Relationship Specialty Start Date End Date Winston Villatoro, OD [facility] [address] [place] [address] PCP - Ophthalmology Ophthalmology 02/11/13 Denise Woodson Ra, APRN FIELD PLACEMENT DIRECTOR [address] [address] [address] PCP - General Family Practice 09/21/20 Denise Woodson Ra, APRN FIELD PLACEMENT DIRECTOR [address] [place] [place] [address] Assigned PCP 07/17/20 Usha Simon APRN FIELD PLACEMENT DIRECTOR 909 [id number] [place] [address] Nurse Practitioner Neurological Surgery 01/24/24 Dangelo Salinas MD [address] [place], [place] [phone] Neurology 01/27/24 Usha Simon APRN FIELD PLACEMENT DIRECTOR 909 [id number] [place], [place] [address] Assigned Neuroscience Provider 02/06/24 03/07/24 Anastasia Stearns, RN Lead Or Rn 02/06/24 Germaine Lopez, W Community Health Worker Primary Care - CC 02/18/24 documented as of this encounter
--- OUTSIDE RECORDS SUMMARY | 2024-05-14 12:00 | XMS_ITS | Encounter Summary ---
Author Organization [facility] Address [address] [place] [address] Care Team Providers Care Wireworker Supervisor Name Role Phone ShaunaWinston OD Unavailable [phone] Denise Woodson Ra, APRN CLOTH TESTER QUALITY Unavailable [phone] Denise Woodson Ra, APRN CLOTH TESTER QUALITY Primary Care Provid er Usha Simon APRN CLOTH TESTER QUALITY Unavailable [phone] Dangelo Salinas MD Unavailable Anastasia Stearns RN Unavailable Germaine Lopez CHW Unavailable [phone] Robin Zepeda MD Unavailable [phone] Encounter Details Date Type Department Care Team [...] often do you attend jehovah's witness or hoahaoism serv ices? Never 02/28/2024 Do [...] Answer Date Recorded PHQ-2 Score 0 03/17/2024 [facility] of Occupat ional Health - Occupational [...] AM CDT [facility] [address] [place] [address] Denise Woodson Ra, BRASS INSTRUMENT REPAIR TECHNICIAN CLOTH TESTER QUALITY [address] [place], [place] [phone] 06/08/2024 8:30 AM CDT Office Visit [facility] [place] [address] [facility] [place] [address] Denise Woodson Ra, BARRERA CLOTH TESTER QUALITY [address] [place], [place] 4[address] documented as of this encounter Goals Goal [...] Mental Health weekly - PT, OT and STRIKER OUT - PCP appointment 05/26/24 & 06/08/24 - Stroke Neurology Dr. Hoyos 04/14/24 #[phone] - Epilepsy Neurology Dr. Barcenas 05/05/24 follow up recommended in 2 months: 07/05/24 TBD. #[phone] - Vascular Dr. Zambrano 05/01/24 - follow up recommended in 6 months: 11/11/24 TBD #[phone]. - MTM if covered by insurance TBD [...] clinic with / after hours services available. Furniture Decals Inspector will remain available as needed. documented as of this encounter Visit Diagnoses Not on filedocumented in this encounter Additional Health Concerns Active Problems Noted Date Diagnosed Date Increased risk of re-admission 02/18/2024 Assessment Noted Time PHQ-9 Depression Total Score: 16 024 3:27 PM CDT documented as of this encounter Care Teams Wireworker Supervisor Relationship Specialty Start Date End Date Winston Villatoro, OD [facility] [address] [place] [address] PCP - Ophthalmology Ophthalmology 02/11/13 Denise Woodson Ra, APRN CLOTH TESTER QUALITY [address] [address] [address] PCP - General Family Practice 09/21/20 Denise Woodson Ra, APRN CLOTH TESTER QUALITY [address] [address] [place] [address] Assigned PCP 07/17/20 Usha Simon APRN CLOTH TESTER QUALITY 909 [id number] [place] [address] Nurse Practitioner Neurological Surgery 01/24/24 Dangelo Salinas MD [address] [place] [address] Neurology 01/27/24 Anastasia Stearns, RN Lead Furniture Decals Inspector 02/06/24 Germaine Lopez, W Community Health Worker Primary Care - CC 02/18/24 Robin Zepeda MD 909 [id number] [place] [address] Assigned Neuroscience Provider 03/08/24 05/07/24 documented as of this encounter
--- OUTSIDE RECORDS SUMMARY | 2024-05-14 12:00 | XMS_ITS | Encounter Summary ---
Author Organization [facility] Address [address] [place] [address] Care Team Providers Care File Drawer Finisher Name Role Phone Winston Villatoro OD Unavailable [phone] Denise Woodson Ra, APRN LABORATORY ADMINISTRATIVE DIRECTOR Unavailable [phone] Denise Woodson Ra, APRN LABORATORY ADMINISTRATIVE DIRECTOR Primary Care Provid er Usha Simon APRN LABORATORY ADMINISTRATIVE DIRECTOR Unavailable [phone] Dangelo Salinas MD Unavailable Anastasia Stearns RN Unavailable [phone] Germaine Lopez CHW Unavailable [phone] Robin Zepeda MD Unavailable [phone] Reason for Visit * Rehab Therapy Integrated Services (Routine) - Authorized Specialty Diagnoses / Procedures Referred By Nila shah Referred To Contact Diagnoses Cerebrovascular accident (CVA), unspecified mechanism (H) [address] [address] Referral ID Status Reason Start Date Expiration Date V isits Requested Visits Authorized [id number] Authorized 09/16/2023 09/15/2024 365 365 Encounter Details Date Type Department Care Team (Late st Contact Info) Description 03/11/2024 4:15 PM CDT Therapy Visit [address] [phone] Danya You, AMAIRANI [address] [place] [address] [address] [place] [address] Delicia George, PT [address] [place] [address] Cerebrovascular accident (CVA), unspecified mechanism [...] How often do you attend gnosticist or muslim serv ices? Never 02/28/2024 Do [...] 4 02/12/2024 [facility] [place] [facility] - Occupational Stress [...] Description 05/26/2024 8:30 AM CDT Office Visit [facility] [address] [place] [phone] Denise Woodson Ra, BARRERA LABORATORY ADMINISTRATIVE DIRECTOR [address] [place] [address] 06/08/2024 8:30 AM CDT Office Visit [facility] [place] [address] [place] [phone] Denise Woodson Ra, CASE ASSISTANT LABORATORY ADMINISTRATIVE DIRECTOR [address] [place] [address] documented as of this encounter Goals Goal [...] Mental Health weekly - PT, OT and PUBLIC ADDRESS TECHNICIAN - PCP appointment 05/26/24 & 06/08/24 - Stroke Neurology Dr. Hoyos 04/14/24 #[phone] - Epilepsy Neurology Dr. Barcenas 05/05/24 follow up recommended in 2 months: 07/05/24 TBD. #[phone] - Vascular Dr. Zambrano 05/01/24 - follow up recommended in 6 months: 11/11/24 TBD #[phone]. - MTM if covered by insurance TBD [...] clinic with 24/7 after hours services available. Cloth Brushing And Sueding Supervisor will remain available as needed. documented as of this encounter Visit Diagnoses Diagnosis Cerebrovascular accident (CVA), unspecified mechanism (H)- Primary documented in this encounter Additional Health Concerns Active Problems Noted Date Diagnosed Date Increased risk of re-admission 02/18/2024 Assessment Noted Time PHQ-9 Depression Total Score: 16 024 3:27 PM CDT documented as of this encounter Care Teams File Drawer Finisher Relationship Specialty Start Date End Date Winston Villatoro OD [facility] [address] [place] [address] PCP - Ophthalmology Ophthalmology 02/11/13 Denise Woodson Ra, CASE ASSISTANT LABORATORY ADMINISTRATIVE DIRECTOR [address] [address] [address] PCP - General Family Practice 09/21/20 Denise Woodson Ra, APRN LABORATORY ADMINISTRATIVE DIRECTOR [address] [place] [address] Assigned PCP 07/17/20 Usha Simon APRN LABORATORY ADMINISTRATIVE DIRECTOR 909 [facility] [place], [place] [address] Nurse Practitioner Neurological Surgery 01/24/24 Dangelo Salinas MD [address] [place], [place] [address] Neurology 01/27/24 Anastasia Stearns, RN Lead Cloth Brushing And Sueding Supervisor 02/06/24 Germaine Lopez, W Community Health Worker Primary Care - CC 02/18/24 Robin Zepeda MD 909 [facility] [place], [place] [address] Assigned Neuroscience Provider 03/08/24 05/07/24 documented as of this encounter
--- OUTSIDE RECORDS SUMMARY | 2024-05-14 12:00 | XMS_ITS | Encounter Summary ---
Author Organization [facility] Address [address] [place] [address]. [place] [address] Care Team Providers Care Shoelace Tipping Machine Operator Name Role Phone Winston Villtaoro OD Unavailable [phone] Denise Woodson Ra, APRN BINDER LAYER Unavailable + [phone] Denise Woodson Ra DEVELOPMENT VICE PRESIDENT BINDER LAYER Primary Care Provid er Usha Simon APRN BINDER LAYER Unavailable + [phone] Dangelo Salinas MD Unavailable Usha Simon APRN BINDER LAYER Unavailable + [phone] Anastasia Stearns RN Unavailable [phone] Germaine Lopez CHW Unavailable [phone] Reason for Visit * Reason Comments Medication Refill Encounter Details Date Type Department Care Team (Late st Contact Info) Description 03/03/2024 Refill [facility] [address] [place] [address] Denise Woodson Ra, APRN BINDER LAYER [address] [place] [address] Medication Refill Social History Tobacco [...] Never 02/28/2024 How often do you attend islam or denominational serv ices? Never 02/28/2024 Do you belong to any clubs o r organizations such as islam groups, unions, fraternal or athletic groups, or [...] Answer Date Recorded PHQ-2 Score 4 02/12/2024 [facility] - Occupational Stress Questionnaire Answer [...] Description 05/26/2024 8:30 AM CDT [facility] [address] [place] [phone] Denise Woodson Ra, APRN BINDER LAYER [address] [facility] [address] 06/08/2024 8:30 AM CDT [facility] [address] [place] [phone] Denise Woodson Ra, BARRERA BINDER LAYER [address] [facility] [place] [place] [id number] documented as of this encounter Goals Goal [...] Mental Health weekly - PT, OT and ADAPTED PHYSICAL EDUCATION AIDE - PCP appointment 05/26/24 & 06/08/24 - Stroke Neurology Dr. Hoyos 04/14/24 #[phone] - Epilepsy Neurology Dr. Barcenas 05/05/24 follow up recommended in 2 months: 07/05/24 TBD. #[phone] - Vascular Dr. Zambrano 05/01/24 - follow up recommended in 6 months: 11/11/24 TBD #[phone]. - MTM if covered by insurance TBD [...] clinic with 24/7 after hours services available. Communications Supervisor will remain available as needed. documented as of this encounter Visit Diagnoses Diagnosis History of seizure Cerebrovascular accident (CVA), unspecified mechanism (H) documented in this encounter Additional Health Concerns Active Problems Noted Date Diagnosed Date Increased risk of re-admission 02/18/2024 Assessment Noted Time PHQ-9 Depression Total Score: 16 024 3:27 PM CDT documented as of this encounter Care Teams Shoelace Tipping Machine Operator Relationship Specialty Start Date End Date Winston Villatoro OD [facility] [address] [facility] [address] [place] [address] PCP - Ophthalmology Ophthalmology 02/11/13 Denise Woodson Ra, DEVELOPMENT VICE PRESIDENT BINDER LAYER [address] [place] [address] PCP - General Family Practice 09/21/20 Denise Woodson Ra, APRN BINDER LAYER [address] [place] [address] Assigned PCP 07/17/20 Usha Simon APRN BINDER LAYER [address] [address] Nurse Practitioner Neurological Surgery 01/24/24 Dangelo Salinas MD [address] [place] [address] Neurology 01/27/24 Usha Simon APRN BINDER LAYER [address] [address]66[address] Assigned Neuroscience Provider 02/06/24 03/07/24 Anastasia Stearns, RN Lead Communications Supervisor 02/06/24 Germaine Lopez, CHW Community Health Worker Primary Care - CC 02/18/24 documented as of this encounter
--- OUTSIDE RECORDS SUMMARY | 2024-05-14 12:00 | XMS_ITS | Encounter Summary ---
Author Organization [facility] Address [address] [place] [address] Care Team Providers Care Sports Equipment Repairer Name Role Phone ShaunaWinston OD Unavailable [phone] Denise Woodson Ra, APRN CLAMP FORKLIFT OPERATOR Unavailable + [phone] Denise Woodson Ra, APRN CLAMP FORKLIFT OPERATOR Primary Care Provid er Usha Simon APRN CLAMP FORKLIFT OPERATOR Unavailable [phone] Dangelo Salinas MD Unavailable Anastasia Stearns RN Unavailable Germaine Lopez CHW Unavailable Robin Zepeda MD Unavailable Lisa Zambrano MD Unavailable [phone] Raul Hoyos MD Unavailable Reason for Visit * Reason Onset Date Comments Call Back 03/09/2024 Follow up appoin tment Encounter Details Date Type Department Care Team (Late st Contact Info) Description 03/09/2024 Telephone [facility] [address] 3rd [place] [address] Raul Hoyos MD [address] [place] [address] [id number] [address] Call Back (Follow up appointment [...] often do you attend latter day or zoroastrian serv ices? Never 02/28/2024 Do you belong [...] Answer Date Recorded PHQ-2 Score 4 02/12/2024 [facility] - Occupational Stress Questionnaire Answer [...] Notes * Telephone Encounter - Filemon Jeter - 03/09/2024 4:04 PM CDT [facility] Phone Message May a detailed message be left on voicemail: yes Reason for Call: Other: Germaine Lopze, Implementation Project Manager, calling to see if the patient should [...] Stroke provider is appropriate. Germaine's call back #[phone] or she states may call patient to schedule if appropriate Action Taken: Message routed to: [facility] Neurology Travel Screening: Not Applicable documented in this encounter Plan of Treatment Upcoming Encounters Date Type Department Care Team (Late st Contact Info) Description 05/26/2024 8:30 AM CDT Office Visit [facility] [address] [place] [phone] Denise Woodson Ra, CARDIOLOGY FELLOW CLAMP FORKLIFT OPERATOR [address] [facility], [place] [address] 06/08/2024 8:30 AM CDT Office Visit [facility] [address] [place] [phone] Denise Woodson Ra, CARDIOLOGY FELLOW CLAMP FORKLIFT OPERATOR [address] [facility], [place] [address] documented as of this encounter Goals Goal [...] Mental Health weekly - PT, OT and CHARCOAL BURNER BEEHIVE KILN - PCP appointment 05/26/24 & 06/08/24 - Stroke Neurology Dr. Hoyos 04/14/24 #[phone] - Epilepsy Neurology Dr. Barcenas 05/05/24 follow up recommended in 2 months: 07/05/24 TBD. #[phone] - Vascular Dr. Zambrano 05/01/24 - follow up recommended in 6 months: 11/11/24 TBD #[phone]. - MTM if covered by insurance TBD [...] clinic with 24/ after hours services available. Implementation Project Manager will remain available as needed. documented as of this encounter Visit Diagnoses Not on filedocumented in this encounter Additional Health Concerns Active Problems Noted Date Diagnosed Date Increased risk of re-admission 02/18/2024 Assessment Noted Time PHQ-9 Depression Total Score: 16 024 3:27 PM CDT documented as of this encounter Care Teams Sports Equipment Repairer Relationship Specialty Start Date End Date Winston Villatoro OD [facility] [address] [facility] [address] [place] [address] PCP - Ophthalmology Ophthalmology 02/11/13 Denise Woodson Ra, APRN CLAMP FORKLIFT OPERATOR [address] [place] [address] PCP - General Family Practice 09/21/20 Denise Woodson Ra, APRN CLAMP FORKLIFT OPERATOR [address] [place] [address] Assigned PCP 07/17/20 Usha Simon APRN CLAMP FORKLIFT OPERATOR 909 [facility], [place] [address] Nurse Practitioner Neurological Surgery 01/24/24 Dangelo Salinas MD [address] [place], [place] [address] Neurology 01/27/24 Anastasia Stearns, RN Lead Implementation Project Manager 02/06/24 Germaine Lopez, W Community Health Worker Primary Care - CC 02/18/24 Robin Zepeda MD [address] [address] Assigned Neuroscience Provider 03/08/24 05/07/24 Lisa Zambrano MD [address] [place] [address] Assigned Heart and Vascular Provider 05/08/24 Raul Hoyos MD [address] [place] [address] Assigned Neuroscience Provider 05/08/24 documented as of this encounter
--- OUTSIDE RECORDS SUMMARY | 2024-05-14 12:01 | XMS_ITS | Encounter Summary ---
Author Organization [facility] Address [address] [place] [address] Care Team Providers Care Lofter Name Role Phone Winston Villatoro OD Unavailable Denise Woodson Ra, APRN OPTICAL LABORATORY MECHANIC Unavailable + [phone] Denise Woodson Ra, APRN OPTICAL LABORATORY MECHANIC Primary Care Provid er Usha Simon APRN OPTICAL LABORATORY MECHANIC Unavailable [phone] Dangelo Salinas MD Unavailable Usha Simon APRN OPTICAL LABORATORY MECHANIC Unavailable [phone] Anastasia Stearns RN Unavailable Germaine Lopez CHW Unavailable Reason for Referral * Diagnostic Imaging CT Scan (Routine) - Closed Specialty Diagnoses / Procedures Referred By Nila shah Referred To Contact Radiology. Diagnoses Flank pain Abdominal pain, epigastric Procedures CT Abdomen Pelvis w Contrast Janna Jo APRN CNP [address] [place] [address] Referral ID Status Reason Start Date Expiration Date Visits Re quested Visits Authorized [id number] Closed 02/28/2024 02/27/2025 1 1 Reason for Visit * Reason Comments Abdominal Pain Epigastric pain X 3 days * Consultation (Routine: Next available opening) - Pending Review Specialty Diagnoses / Procedures Referred By Nila t Referred To Contact Diagnoses Flank pain Abdominal pain, epigastric Liliane Mcnair PA-C [address] [place] [address] Ri Acute & Diag [facility] [address] [employer] [address] [place] [address] Referral ID Status Reason Start Date Expiration Date V isits Requested Visits Authorized [id number] Pending Review 02/27/2024 02/26/2025 1 1 Encounter Details Date Type Department Care Team (Late st Contact Info) Description 02/28/2024 10:00 AM CDT Office Visit [facility] [address] [facility] [address] [place] [address] Janna Jo, OPERATIONAL RISK ANALYST [facility] [address] [place] [address] Flank pain; Abdominal pain, epigastric; [...] How often do you attend samaritan or zoroastrian serv ices? Never 02/28/2024 Do [...] Answer Date Recorded PHQ-2 Score 4 02/12/2024 [facility] - Occupational Stress Questionnaire Answer Date [...] Instructions * Patient Instructions* Janna Jo APRN OPTICAL LABORATORY MECHANIC - 02/28/2024 10:00 AM CDT Results for [...] Status --------- ------ CBC with platelets and d...[[id number]] Final result Please view results for these [...] Status --------- ------ CBC with platelets and d...[[id number]] Final result Please view results for these [...] Description 05/26/2024 8:30 AM CDT Office Visit [address] [place] [phone] Denise Woodson Ra, OPERATIONAL RISK ANALYST OPTICAL LABORATORY MECHANIC [address] [place] [address] 06/08/2024 8:30 AM CDT Office Visit [facility] [place] [address] [facility] [place] [phone] Denise Woodson Ra, BARRERA OPTICAL LABORATORY MECHANIC [address] [facility] [place] [address] documented as of this encounter Goals Goal [...] Health weekly - PT, OT and MANAGER PLANNING - PCP appointment 05/26/24 & 06/08/24 - Stroke Neurology Dr. Hoyos 04/14/24 #[phone] - Epilepsy Neurology Dr. Barcenas 05/05/24 follow up recommended in 2 months: 07/05/24 TBD. #[phone] - Vascular Dr. Zambrano 05/01/24 - follow up recommended in 6 months: 11/11/24 TBD #[phone]. - MTM if covered by insurance TBD 2. I will take my medications as prescribed. 3. I will discuss, review, schedule and complete recommended overdue health maintenance with my Primary Care Provider. 4. I will contact my care team with questions, concerns, support needs. I will use the clinic as a resource and I understand I can contact my clinic with /7 after hours services available. Interlocker Maintainer will remain available as needed. documented as [...] pain is identified. PETRONA HARRIS MD Janna Chaudharineal [facility] CT ORDER NASRIN * CBC with platelets [...] CDT 02/28/2024 10:47 AM CDT Janna Jo OPERATIONAL RISK ANALYST OPTICAL LABORATORY MECHANIC LAB - BLOOD ORDERABLES Performing Organization Address City/[facility]/ZIP Co de Phone Number LABORATORY [facility] Acute Care Lab [address] Lab (1st floor, no room number) [address] * Erythrocyte sedimentation rate auto (02/28/2024 10:38 AM CDT) Pathologist [facility] Erythrocyte Sedimentation Rate 20 0 - 20 mm/hr 02/28/2024 11:18 AM CDT LABORATORY Blood VENOUS LINE / Unknown Venipuncture / Unknown 02/28/2024 10:38 AM CDT 02/28/2024 10:47 AM CDT Janna Parsonsbrian Jo APRN [facility] LAB - BLOOD ORDERABLES Performing Organization Address [facility]/ZIP Co de Phone Number [facility] Lab [address] Lab (1st floor, no room number) [address] * (ABNORMAL) CRP inflammation (02/28/2024 10:38 AM CDT) [facility] CRP Inflammation 6.29(H) <5.00 mg/L 02/28/2024 11:39 AM CDT LABORATORY Blood VENOUS LINE / Unknown Venipuncture / Unknown 02/28/2024 10:38 AM CDT 02/28/2024 10:47 AM CDT Janna Parsonsbrian Jo APRN [facility] LAB - BLOOD ORDERABLES Performing Organization Address City/[facility]/ZIP Co de Phone Number [facility] Acute Care Lab [address] Lab (1st floor, no room number) [address] * (ABNORMAL) Comprehensive metabolic panel (02/28/2024 10:38 AM CDT) [facility] Sodium 139 135 - 145 mmol/L 02/28/2024 [...] - 5.3 mmol/L 02/28/2024 11:39 AM CDT [facility] Carbon Dioxide (CO2) 28 22 - 29 mmol/L 02/28/2024 11:39 AM CDT [facility] Anion Gap 11 7 - 15 mmol/L 02/28/2024 11:39 AM CDT [facility] Urea Nitrogen 15.0 6.0 - 20.0 mg/dL 02/28/2024 11:39 AM CDT [facility] Creatinine 0.87 0.51 - 0.95 mg/dL 02/28/2024 11:39 AM CDT [facility] GFR Estimate 82 >60 mL/min/1. 73m2 02/28/2024 11:39 AM CDT [facility] Comment:eGFR calculated usin 2020 [...] 10:47 AM CDT Janna Maranda Jo APRN OPTICAL LABORATORY MECHANIC LAB - BLOOD ORDERABLES Performing Organization Address City/[facility]/ZIP Co de Phone Number [facility] Lab [address] Lab (1st floor, no room number) [place] [phone] [place] [address] * TSH with free T4 reflex (02/28/2024 10:27 AM CDT) TSH 3.87 0.30 - 4.20 uIU/mL 02/28/2024 11:56 AM CDT [facility] Blood ARTERIAL LINE / Unknown Venipuncture / Unknown 02/28/2024 10:27 AM CDT 02/28/2024 11:08 AM CDT Janna Jo APRN, CNP LAB - BLOOD ORDERABLES Performing Organization Address [facility]/ZIP Co de Phone Number [facility] Lab [address] Lab (1st floor, no room number) [place] [phone] documented in this encounter Visit [...] documented as of this encounter Care Teams Lofter Relationship Specialty Start Date End Date Winston Villatoro OD [facility] [place] [address] [place] [address] PCP - Ophthalmology Ophthalmology 02/11/13 Denise Woodson Ra, APRN OPTICAL LABORATORY MECHANIC [address] [facility] [place] [address] PCP - General Family Practice 09/21/20 Denise Woodson Ra, APRN OPTICAL LABORATORY MECHANIC [address] [address] [place] [address] Assigned PCP 07/17/20 Usha Simon APRN OPTICAL LABORATORY MECHANIC [address] [address] Nurse Practitioner Neurological Surgery 01/24/24 Dangelo Salinas MD [address] [place] [address] Neurology 01/27/24 Usha Simon APRN OPTICAL LABORATORY MECHANIC [address] [place] [address] Assigned Neuroscience Provider 02/06/24 03/07/24 Anastasia Stearns, RN Lead Interlocker Maintainer 02/06/24 Germaine Lopez, CHW Community Health Worker Primary Care - CC 02/18/24 documented as of this encounter
--- OUTSIDE RECORDS SUMMARY | 2024-05-14 12:01 | XMS_ITS | Encounter Summary ---
Author Organization [facility] Address [address] [place] [address] Care Team Providers Care Products Mechanical Design Engineer Name Role Phone ShaunaWinston OD Unavailable [phone] Denise Woodson Ra, APRN SECURITY AND COMPLIANCE ANALYST Unavailable [phone] Denise Woodson Ra, APRN SECURITY AND COMPLIANCE ANALYST Primary Care Provid er Usha Simon APRN SECURITY AND COMPLIANCE ANALYST Unavailable [phone] Dangelo Salinas MD Unavailable Usha Simon APRN SECURITY AND COMPLIANCE ANALYST Unavailable [phone] Anastasia Stearns RN Unavailable [phone] Encounter Details Date Type Department Care Team [...] Description 05/26/2024 8:30 AM CDT Office Visit [facility] [place] [address] [place] [phone] Denise Woodson Ra, BARRERA SECURITY AND COMPLIANCE ANALYST [address] [place] [address] 06/08/2024 8:30 AM CDT Office Visit [facility] [place] [address] [place] [phone] Denise Woodson Ra, BARRERA SECURITY AND COMPLIANCE ANALYST [address] [place] [address] documented as of this encounter Visit Diagnoses Not on filedocumented in this encounter Additional Health Concerns Assessment Noted Time PHQ-9 Depression Total Score: 16 024 3:27 PM CDT documented as of this encounter Care Teams Products Mechanical Design Engineer Relationship Specialty Start Date End Date Winston Villatoro OD [facility] [place] [address] [place] [address] PCP - Ophthalmology Ophthalmology 02/11/13 Denise Woodson Ra, APRN SECURITY AND COMPLIANCE ANALYST [address] [place] [address] PCP - General Family Practice 09/21/20 Denise Woodson Ra, APRN CNP [address] [place] [address] Assigned PCP 07/17/20 Usha Simon APRN SECURITY AND COMPLIANCE ANALYST [address] [place], [place] [address] [address] Nurse Practitioner Neurological Surgery 01/24/24 Dangelo Salinas MD [address] [place] [address] Neurology 01/27/24 Usha Simon APRN SECURITY AND COMPLIANCE ANALYST [address] [facility] [place] [address] Assigned Neuroscience Provider 02/06/24 03/07/24 Anastasia Stearns, RN Lead Toolroom Keeper 02/06/24 documented as of this encounter
--- OUTSIDE RECORDS SUMMARY | 2024-05-14 12:01 | XMS_ITS | Encounter Summary ---
Author Organization [facility] Address [address] [place] [address] Care Team Providers Care Social Work Associate Name Role Phone Winston Villatoro OD Unavailable [phone] Denise Woodson Ra, APRN OTHER WOOD PROCESSING MACHINE OPERATOR Unavailable [phone]- [phone] Denise Woodson Ra SENIOR TREASURY ANALYST OTHER WOOD PROCESSING MACHINE OPERATOR Primary Care Provid er Usha Simon APRN OTHER WOOD PROCESSING MACHINE OPERATOR Unavailable [phone] Dangelo Salinas MD Unavailable Usha Simon APRN OTHER WOOD PROCESSING MACHINE OPERATOR Unavailable [phone] Anastasia Stearns RN Unavailable [phone] Germaine Lopez CHW Unavailable [phone] Reason for Visit * Rehab Therapy Integrated Services (Routine) - Authorized Specialty Diagnoses / Procedures Referred By Nila shah Referred To Contact Diagnoses Cerebrovascular accident (CVA), unspecified mechanism (H) [address] [address] Referral ID Status Reason Start Date Expiration Date V isits Requested Visits Authorized [id number] Authorized 09/16/2023 09/15/2024 365 365 Encounter Details Date Type Department Care Team (Late st Contact Info) Description 02/19/2024 3:00 PM CDT Therapy Visit [address] [id number] Danya You, PA [address] [place] [address] [address] [place] [address] Isabel Beaulieu, JAIMIE [address] [address] Cerebrovascular accident (CVA), unspecified mechanism (H) (Primary [...] Description 05/26/2024 8:30 AM CDT [facility] [address] [place] [address] Denise Woodson Ra, BARRERA OTHER WOOD PROCESSING MACHINE OPERATOR [address] [facility] [address] 06/08/2024 8:30 AM CDT Office Visit [facility] [place] [address] [place] [address] Denise Woodson Ra, BARRERA OTHER WOOD PROCESSING MACHINE OPERATOR [address] [facility] [place], [place] 25[address] documented as of this encounter Goals Goal [...] Mental Health weekly - PT, OT and ORACLE MANUFACTURING CONSULTANT - PCP appointment 05/26/24 & 06/08/24 - Stroke Neurology Dr. Hoyos 04/14/24 #[phone] - Epilepsy Neurology Dr. Barcenas 05/05/24 follow up recommended in 2 months: 07/05/24 TBD. #[phone] - Vascular Dr. Zambrano 05/01/24 - follow up recommended in 6 months: 11/11/24 TBD #[phone]. - MTM if covered by insurance TBD [...] clinic with 24/7 after hours services available. Counseling Services Director will remain available as needed. documented as of this encounter Visit Diagnoses Diagnosis Cerebrovascular accident (CVA), unspecified mechanism (H)- Primary documented in this encounter Additional Health Concerns Active Problems Noted Date Diagnosed Date Increased risk of re-admission 02/18/2024 Assessment Noted Time PHQ-9 Depression Total Score: 16 024 3:27 PM CDT documented as of this encounter Care Teams Social Work Associate Relationship Specialty Start Date End Date Winston Villatoro OD [facility] [place] [address] [place] [address] PCP - Ophthalmology Ophthalmology 02/11/13 Denise Woodson Ra, APRN OTHER WOOD PROCESSING MACHINE OPERATOR [address] [place] [address] PCP - General Family Practice 09/21/20 Denise Woodson Ra, APRN OTHER WOOD PROCESSING MACHINE OPERATOR [address] [place] [address] Assigned PCP 07/17/20 Usha Simon APRN OTHER WOOD PROCESSING MACHINE OPERATOR [address] [place], [place] [address] Nurse Practitioner Neurological Surgery 01/24/24 Dangelo Salinas MD [address] [place], [place] [id number] Neurology 01/27/24 Usha Simon APRN OTHER WOOD PROCESSING MACHINE OPERATOR [address] [id number] Assigned Neuroscience Provider 02/06/24 03/07/24 Anastasia Stearns, RN Lead Counseling Services Director 02/06/24 Germaine Lopez, CHW Community Health Worker Primary Care - CC 02/18/24 documented as of this encounter
--- OUTSIDE RECORDS SUMMARY | 2024-05-14 12:01 | XMS_ITS | Encounter Summary ---
Author Organization [facility] Address [address] [place] [address] Care Team Providers Care Plug Saw Operator Name Role Phone Winston Villatoro OD Unavailable Denise Woodson Ra, APRN NURSING RESIDENT Unavailable + [phone] Denise Woodson Ra, APRN NURSING RESIDENT Primary Care Provid er Usha Simon APRN NURSING RESIDENT Unavailable [phone] Dangelo Salinas MD Unavailable Usha Simon APRN NURSING RESIDENT Unavailable [phone] Anastasia Stearns RN Unavailable Germaine Lopez CHW Unavailable Reason for Referral * Diagnostic Imaging CT Scan (Routine) - Closed Specialty Diagnoses / Procedures Referred By Contac t Referred To Contact Radiology. Diagnoses Flank pain Abdominal pain, epigastric Procedures CT Abdomen Pelvis w Contrast Janna Jo APRN CNP [address] [place] [address] Referral ID Status Reason Start Date Expiration Date Visits Re quested Visits Authorized [id number] Closed 02/28/2024 02/27/2025 1 1 Reason for Visit * Diagnostic Imaging CT Scan (Routine) - Closed Specialty Diagnoses / Procedures Referred By Contac t Referred To Contact Radiology. Diagnoses Flank pain Abdominal pain, epigastric Procedures CT Abdomen Pelvis w Contrast Janna Jo APRN NURSING RESIDENT [address] [place] [address] Referral ID Status Reason Start Date Expiration Date Visits Re quested Visits Authorized [id number] Closed 02/28/2024 02/27/2025 1 1 Encounter Details Date Type Department Care Team (Latest Contact Info) Description 02/28/2024 10:46 AM CDT - 02/28/2024 11:59 PM CDT Hospital Encounter [facility] [address] [place] [address] Janna Jo APRN NURSING RESIDENT [address] [place] [address] Flank pain; Abdominal pain, epigastric Discharge Disposition: [...] How often do you attend spiritism or hinduism serv ices? Never 02/28/2024 Do you belong [...] Answer Date Recorded PHQ-2 Score 4 02/12/2024 [facility] - Occupational [...] Description 05/26/2024 8:30 AM CDT [facility] [address] [place] [phone] Denise Woodson Ra, MASS COMMUNICATIONS INSTRUCTOR NURSING RESIDENT [address] [place], [place] [address] 06/08/2024 8:30 AM CDT Office Visit [facility] [place] [address] [place] [phone] Denise Woodson Ra, BARRERA NURSING RESIDENT [address] [place], [place] 83[address] documented as of this encounter Goals Goal [...] Mental Health weekly - PT, OT and ANNUAL GIVING OFFICER - PCP appointment 05/26/24 & 06/08/24 - Stroke Neurology Dr. Hoyos 04/14/24 #[phone] - Epilepsy Neurology Dr. Barcenas 05/05/24 follow up recommended in 2 months: 07/05/24 TBD. #[phone] - Vascular Dr. Zambrano 05/01/24 - follow up recommended in 6 months: 11/11/24 TBD #[phone]. - MTM if covered by insurance TBD [...] clinic with 24/ after hours services available. Manager Medicare will remain available as needed. documented as [...] pain is identified. PETRONA HARRIS MD Janna Jo APRN [facility] CT ORDER NASRIN documented in this encounter [...] as of this encounter Care Teams Plug Saw Operator Relationship Specialty Start Date End Date Shauna Winstongabino Saez OD [facility] [place] [address] [place] [address] PCP - Ophthalmology Ophthalmology 02/11/13 Denise Woodson Ra, APRN NURSING RESIDENT [address] [facility] [place] [address] PCP - General Family Practice 09/21/20 Denise Woodson Ra, APRN NURSING RESIDENT [address] [facility] [place] [address] Assigned PCP 07/17/20 Usha Simon APRN NURSING RESIDENT [address] [place] [address]285 Nurse Practitioner Neurological Surgery 01/24/24 Dangelo Salinas MD [address] [address] Neurology 01/27/24 Usha Simon APRN NURSING RESIDENT [address] [place] [address] Assigned Neuroscience Provider 02/06/24 03/07/24 Anastasia Stearns, RN Lead Manager Medicare 02/06/24 Germaine Lopez, W Community Health Worker Primary Care - CC 02/18/24 documented as of this encounter
--- OUTSIDE RECORDS SUMMARY | 2024-05-14 12:01 | XMS_ITS | Encounter Summary ---
Author Organization [facility] Address [address] [place] [address] Care Team Providers Care Machine Inspector Name Role Phone Winston Villatoro OD Unavailable [phone] Denise Woodson Ra, APRN CHEMICAL ANALYST Unavailable +- [phone] Denise Woodson Ra, APRN CHEMICAL ANALYST Primary Care Provid er Usha Simon APRN CHEMICAL ANALYST Unavailable [phone] Dangelo Salinas MD Unavailable Usha Simon APRN CHEMICAL ANALYST Unavailable [phone] Anastasia Stearns RN Unavailable [phone] Germaine Lopez CHW Unavailable [phone] Encounter Details Date Type Department Care Team [...] How often do you attend holiness or muslim serv ices? Never 02/28/2024 Do [...] [facility] [address] [place] [address] Denise Woodson Ra, ELIGIBILITY ANALYST CHEMICAL ANALYST [address] [facility], [place] [address]368 06/08/2024 8:30 AM CDT Office Visit [facility] [place] [address] [place] [address] Denise Woodson Ra, BARRERA CHEMICAL ANALYST [address] [place], [place] 58[address] documented as of this encounter Goals Goal [...] Mental Health weekly - PT, OT and HEALTH CARE SANITARY TECHNICIAN - PCP appointment 05/26/24 & 06/08/24 - Stroke Neurology Dr. Hoyos 04/14/24 #[phone] - Epilepsy Neurology Dr. Barcenas 05/05/24 follow up recommended in 2 months: 07/05/24 TBD. #[phone] - Vascular Dr. Zambrano 05/01/24 - follow up recommended in 6 months: 11/11/24 TBD #[phone]. - MTM if covered by insurance TBD [...] clinic with / after hours services available. Chemical Dependency Attendant will remain available as needed. documented as of this encounter Visit Diagnoses Not on filedocumented in this encounter Additional Health Concerns Active Problems Noted Date Diagnosed Date Increased risk of re-admission 02/18/2024 Assessment Noted Time PHQ-9 Depression Total Score: 16 024 3:27 PM CDT documented as of this encounter Care Teams Machine Inspector Relationship Specialty Start Date End Date Winston Villatoro, OD [facility] [address] [facility] [address] [place] [address] PCP - Ophthalmology Ophthalmology 02/11/13 Denise Woodson Ra, APRN CHEMICAL ANALYST [address] [address] [place] [address] PCP - General Family Practice 09/21/20 Denise Woodson Ra, APRN CHEMICAL ANALYST [address] [address] [place] [address] Assigned PCP 07/17/20 Usha Simon APRN CHEMICAL ANALYST [id number] [place] [address] Nurse Practitioner Neurological Surgery 01/24/24 Dangelo Salinas MD [address] [place], [place] [id number] Neurology 01/27/24 Usha Simon APRN CHEMICAL ANALYST [id number] [place], [place] [address] Assigned Neuroscience Provider 02/06/24 03/07/24 Anastasia Stearns, RN Lead Chemical Dependency Attendant 02/06/24 Germaine Lopez, W Community Health Worker Primary Care - CC 02/18/24 documented as of this encounter
--- OUTSIDE RECORDS SUMMARY | 2024-05-14 12:01 | XMS_ITS | Encounter Summary ---
Author Organization [facility] Address [address] [place] [address] Care Team Providers Care Water Treatment Plant Supervisor Name Role Phone ShaunaWinston OD Unavailable [phone] Denise Woodson Ra, APRN ACCOUNT DEVELOPMENT ASSOCIATE Unavailable [phone] Denise Woodson Ra, APRN ACCOUNT DEVELOPMENT ASSOCIATE Primary Care Provid er Usha Simon APRN ACCOUNT DEVELOPMENT ASSOCIATE Unavailable [phone] Dangelo Salinas MD Unavailable Usha Simon APRN ACCOUNT DEVELOPMENT ASSOCIATE Unavailable [phone] Anastasia Stearns RN Unavailable [phone] Encounter Details Date Type Department Care Team [...] 05/26/2024 8:30 AM CDT Office Visit [facility] [place] [address] [facility] [place] [place] [address] Denise Woodson Ra, BARRERA ACCOUNT DEVELOPMENT ASSOCIATE [address] [place] [address] 06/08/2024 8:30 AM CDT Office [facility] [place] [address] [facility] [place] [place] [address] Denise Woodson Ra, BARRERA ACCOUNT DEVELOPMENT ASSOCIATE [address] [place] [address] documented as of this encounter Visit Diagnoses Not on filedocumented in this encounter Additional Health Concerns Assessment Noted Time PHQ-9 Depression Total Score: 16 024 3:27 PM CDT documented as of this encounter Care Teams Water Treatment Plant Supervisor Relationship Specialty Start Date End Date Winston Villatoro OD [facility] [address] [place] [address] PCP - Ophthalmology Ophthalmology 02/11/13 Denise Woodson Ra, APRN ACCOUNT DEVELOPMENT ASSOCIATE [address] [place] [address] PCP - General Family Practice 09/21/20 Denise Woodson Ra, APRN CNP [address] [place] [address] Assigned PCP 07/17/20 Usha Simon APRN ACCOUNT DEVELOPMENT ASSOCIATE [address] [place], [place] [address] [address] Nurse Practitioner Neurological Surgery 01/24/24 Dangelo Salinas MD [address] [place] [address] Neurology 01/27/24 Usha Simon APRN ACCOUNT DEVELOPMENT ASSOCIATE [address]09 [facility] [place] [address] Assigned Neuroscience Provider 02/06/24 03/07/24 Anastasia Stearns, RN Lead Instructional Technology Coordinator 02/06/24 documented as of this encounter
--- OUTSIDE RECORDS SUMMARY | 2024-05-14 12:01 | XMS_ITS | Encounter Summary ---
Author Organization [facility] Address [address] [place] [address] Care Team Providers Care Laborer Salvage Name Role Phone Winston Villatoro OD Unavailable [phone] Denise Woodson Ra, APRN STENCIL PRINTER Unavailable [phone] Denise Woodson Ra, APRN STENCIL PRINTER Primary Care Provid er Usha Simon APRN STENCIL PRINTER Unavailable [phone] Dangelo Salinas MD Unavailable Usha Simon APRN STENCIL PRINTER Unavailable [phone] Anastasia Stearns RN Unavailable [phone] Germaine Lopez CHW Unavailable [phone] Encounter Details Date Type Department Care Team [...] 05/26/2024 8:30 AM CDT Office Visit [facility] [place] [address] [place] [phone] Denise Woodson Ra, DIETETIC INTERN STENCIL PRINTER [address] [facility] [place], [place] [address] 06/08/2024 8:30 AM CDT Office Visit [facility] [place] [address] [place] [phone] Denise Woodson Ra, DIETETIC INTERN STENCIL PRINTER [address] [address] [place], [place] 508[address] documented as of this encounter Goals Goal [...] Mental Health weekly - PT, OT and REFERRAL AGENT - PCP appointment 05/26/24 & 06/08/24 - Stroke Neurology Dr. Hoyos 04/14/24 #[phone] - Epilepsy Neurology Dr. Barcenas 05/05/24 follow up recommended in 2 months: 07/05/24 TBD. #[phone] - Vascular Dr. Zambrano 05/01/24 - follow up recommended in 6 months: 11/11/24 TBD #[phone]. - MTM if covered by insurance TBD [...] clinic with 24/7 after hours services available. Circuit Walker will remain available as needed. documented as of this encounter Visit Diagnoses Not on filedocumented in this encounter Additional Health Concerns Active Problems Noted Date Diagnosed Date Increased risk of re-admission 02/18/2024 Assessment Noted Time PHQ-9 Depression Total Score: 16 024 3:27 PM CDT documented as of this encounter Care Teams Laborer Salvage Relationship Specialty Start Date End Date Winston Villatoro OD [facility] [address] [facility] [address] [place] [address] PCP - Ophthalmology Ophthalmology 02/11/13 Denise Woodson Ra, APRN STENCIL PRINTER [address] [facility] [place] [address] PCP - General Family Practice 09/21/20 Denise Woodson Ra, APRN STENCIL PRINTER [address] [place] [address] Assigned PCP 07/17/20 Usha Simon APRN STENCIL PRINTER 909 [facility] [id number] [place] [address] Nurse Practitioner Neurological Surgery 01/24/24 Dangelo Salinas MD [address] [place] [address] Neurology 01/27/24 Usha Simon APRN STENCIL PRINTER 909 [facility] [id number] [place] [address] Assigned Neuroscience Provider 02/06/24 03/07/24 Anastasia Stearns, RN Lead Circuit Walker 02/06/24 Germaine Lopez, W Community Health Worker Primary Care - CC 02/18/24 documented as of this encounter
--- OUTSIDE RECORDS SUMMARY | 2024-05-14 12:01 | XMS_ITS | Encounter Summary ---
Author Organization [facility] Address [address] [place] [address]. [place] [address] Care Team Providers Care Cyber Security Engineer Name Role Phone Winston Villatoro OD Unavailable [phone] Denise Woodson Ra, APRN ELEMENTARY ELL TEACHER Unavailable + [phone] Denise Woodson Ra TONE REGULATOR ELEMENTARY ELL TEACHER Primary Care Provid er Usha Simon APRN ELEMENTARY ELL TEACHER Unavailable + [phone] Dangelo Salinas MD Unavailable Usha Simon APRN ELEMENTARY ELL TEACHER Unavailable + [phone] Anastasia Stearns RN Unavailable [phone] Germaine Lopez CHW Unavailable [phone] Encounter Details Date Type Department Care Team (Late st Contact Info) Description 02/27/2024 MyC Medical Advice [facility] [address] [place] [address] Denise Woodson Ra, APRN ELEMENTARY ELL TEACHER [address] [place] [address] Social History Tobacco Use Types [...] Never 02/28/2024 How often do you attend advent or rastafari serv ices? Never 02/28/2024 Do you belong to any clubs o r organizations such as advent groups, unions, fraternal or athletic groups, or [...] AM CDT [facility] [address] [facility] [place] [address] Denise Woodson Ra, TONE REGULATOR [facility] [address] [facility] [place] [id number] 06/08/2024 8:30 AM CDT [facility] [address] [facility] [place] [address] Denise Woodson Ra, TONE REGULATOR ELEMENTARY ELL TEACHER [address] [place] [address] documented as of this encounter Goals Goal [...] Mental Health weekly - PT, OT and SCOOTER MECHANIC - PCP appointment 05/26/24 & 06/08/24 - Stroke Neurology Dr. Hoyos 04/14/24 #[phone] - Epilepsy Neurology Dr. Barcenas 05/05/24 follow up recommended in 2 months: 07/05/24 TBD. #[phone] - Vascular Dr. Zambrano 05/01/24 - follow up recommended in 6 months: 11/11/24 TBD #[phone]. - MTM if covered by insurance TBD [...] clinic with 24/7 after hours services available. Machine Plug Shaper will remain available as needed. documented as of this encounter Visit Diagnoses Not on filedocumented in this encounter Additional Health Concerns Active Problems Noted Date Diagnosed Date Increased risk of re-admission 02/18/2024 Assessment Noted Time PHQ-9 Depression Total Score: 16 024 3:27 PM CDT documented as of this encounter Care Teams Cyber Security Engineer Relationship Specialty Start Date End Date Winston Villatoro OD [facility] [place] [address] [facility] [address] [place] [address] PCP - Ophthalmology Ophthalmology 02/11/13 Denise Woodson Ra, APRN ELEMENTARY ELL TEACHER [address] [place] [address] PCP - General Family Practice 09/21/20 Denise Woodson Ra, APRN ELEMENTARY ELL TEACHER [address] [place] [address] Assigned PCP 07/17/20 Usha Simon APRN ELEMENTARY ELL TEACHER [address] [address] Nurse Practitioner Neurological Surgery 01/24/24 Dangelo Salinas MD [address] [place] [address] Neurology 01/27/24 Usha Simon APRN ELEMENTARY ELL TEACHER [address] [address] Assigned Neuroscience Provider 02/06/24 03/07/24 Anastasia Stearns, RN Lead Machine Plug Shaper 02/06/24 Germaine Lopez, CHW Community Health Worker Primary Care - CC 02/18/24 documented as of this encounter
--- OUTSIDE RECORDS SUMMARY | 2024-05-14 12:01 | XMS_ITS | Encounter Summary ---
Author Organization [place] [facility] Address [address] [place] [address] Care Team Providers Care Theater Projectionist Name Role Phone Winston Villatoro OD Unavailable [phone] Denise Woodson Ra, APRN CARDIOLOGY TECH Unavailable + [phone] Denise Woodson Ra SCREENING TECHNICIAN CARDIOLOGY TECH Primary Care Provid er Usha Simon APRN CARDIOLOGY TECH Unavailable [phone] Dangelo Salinas MD Unavailable Usha Simon SCREENING TECHNICIAN CARDIOLOGY TECH Unavailable [phone] Anastasia Stearns RN Unavailable [phone] Germaine Lopez CHW Unavailable Encounter Details Date Type Department Care Team (Late st Contact Info) Description 03/02/2024 [facility] Only [facility] [address] [place] [address] Liliane Mcnair, [place] [address] [place] [address] Hematuria, unspecified type (Primary Dx) [...] Never 02/28/2024 How often do you attend latter-day or jewish serv ices? Never 02/28/2024 Do you belong to any clubs o r organizations such as latter-day groups, unions, fraternal or athletic groups, or [...] Answer Date Recorded PHQ-2 Score 4 02/12/2024 [facility] - Occupational [...] Description 05/26/2024 8:30 AM CDT [facility] [address] [place] [address] Denise Woodson Ra, APRN CARDIOLOGY TECH [address] [place] [address] 06/08/2024 8:30 AM CDT Office Visit [facility] [place] [address] [place] [address] Denise Woodson Ra, APRN CARDIOLOGY TECH [address] [facility] [place], [place] 0337468 Scheduled Orders Name Type Priority Associated Diagnoses [...] Mental Health weekly - PT, OT and THREAD MILLING MACHINE SET UP OPERATOR - PCP appointment 05/26/24 & 06/08/24 - Stroke Neurology Dr. Hoyos 04/14/24 #[phone] - Epilepsy Neurology Dr. Barcenas 05/05/24 follow up recommended in 2 months: 07/05/24 TBD. #[phone] - Vascular Dr. Zambrano 05/01/24 - follow up recommended in 6 months: 11/11/24 TBD #[phone]. - MTM if covered by insurance TBD [...] clinic with 24/7 after hours services available. Rrts will remain available as needed. documented as of this encounter Visit Diagnoses Diagnosis Hematuria, unspecified type- Primary documented in this encounter Additional Health Concerns Active Problems Noted Date Diagnosed Date Increased risk of re-admission 02/18/2024 Assessment Noted Time PHQ-9 Depression Total Score: 16 024 3:27 PM CDT documented as of this encounter Care Teams Theater Projectionist Relationship Specialty Start Date End Date Winston Villatoro OD [facility] [address] [facility] [address] [place] [address] PCP - Ophthalmology Ophthalmology 02/11/13 Denise Woodson Ra, APRN CARDIOLOGY TECH [address] [place] [address] PCP - General Family Practice 09/21/20 Denise Woodson Ra, APRN CARDIOLOGY TECH [address] [place] [address] Assigned PCP 07/17/20 Usha Simon APRN CARDIOLOGY TECH [address] [place], [place] [address] Nurse Practitioner Neurological Surgery 01/24/24 Dangelo Salinas MD [address] [place], [place] [id number] Neurology 01/27/24 Usha Simon APRN CARDIOLOGY TECH [address] [place] [id number] [place], [place] [address] Assigned Neuroscience Provider 02/06/24 03/07/24 Anastasia Stearns, RN Lead Rrts 02/06/24 Germaine Lopez, CHW Community Health Worker Primary Care - CC 02/18/24 documented as of this encounter
--- OUTSIDE RECORDS SUMMARY | 2024-05-14 12:01 | XMS_ITS | Encounter Summary ---
Author Organization [facility] Address [address] [place] [address]. [place] [address] Care Team Providers Care C Java Developer Name Role Phone Winston Villatoro OD Unavailable [phone] Denise Woodson Ra, APRN PHYSICIAN PRACTICE MARKET MANAGER Unavailable [phone] Denise Woodson Ra SURVEY ENGINEER PHYSICIAN PRACTICE MARKET MANAGER Primary Care Provid er Usha Simon APRN PHYSICIAN PRACTICE MARKET MANAGER Unavailable [phone] Dangelo Salinas MD Unavailable Usha Simon APRN PHYSICIAN PRACTICE MARKET MANAGER Unavailable [phone] Anastasia Stearns RN Unavailable [phone] Reason for Visit * Rehab Therapy Integrated Services (Routine) - Authorized Specialty Diagnoses / Procedures Referred By Contac t Referred To Contact Diagnoses Cerebrovascular accident (CVA), unspecified mechanism (H) [address] [address] Referral ID Status Reason Start Date Expiration Date V isits Requested Visits Authorized [id number] Authorized 09/16/2023 09/15/2024 365 365 Encounter Details Date Type Department Care Team (Latest Contact Info) Description 02/17/2024 2:45 PM CDT Therapy Visit [address] [phone] Danya You, AMAIRANI [address] [place] [address] Aliya Kim, PERSONALIZED LIVING MANAGER [address] [facility], [address] [place] [id number] Cerebrovascular accident (CVA), unspecified mechanism (H) (Primary [...] Description 05/26/2024 8:30 AM CDT Office Visit [facility] [address] [place] [address] Denise Woodson Ra, BARRERA PHYSICIAN PRACTICE MARKET MANAGER [address] [facility] [place] [address] 06/08/2024 8:30 AM CDT [facility] [address] [place] [address] Denise Woodson Ra, BARRERA PHYSICIAN PRACTICE MARKET MANAGER [address] [facility] [place], [place] [address] documented as of this encounter Visit Diagnoses Diagnosis Cerebrovascular accident (CVA), unspecified mechanism (H)- Primary Cognitive communication deficit documented in this encounter Additional Health Concerns Assessment Noted Time PHQ-9 Depression Total Score: 16 024 3:27 PM CDT documented as of this encounter Care Teams C Java Developer Relationship Specialty Start Date End Date Winston Villatoro OD [facility] [place] [address] [place] [address] PCP - Ophthalmology Ophthalmology 02/11/13 Denise Woodson Ra SURVEY ENGINEER PHYSICIAN PRACTICE MARKET MANAGER [address] [address] [place] [id number] PCP - General Family Practice 09/21/20 Denise Woodson Ra SURVEY ENGINEER PHYSICIAN PRACTICE MARKET MANAGER [address] [address] [place] [id number] Assigned PCP 07/17/20 Usha Simon APRN PHYSICIAN PRACTICE MARKET MANAGER [address] [id number] Nurse Practitioner Neurological Surgery 01/24/24 Dangelo Salinas MD [address] [place] [address] Neurology 01/27/24 Usha Simon APRN PHYSICIAN PRACTICE MARKET MANAGER [address] [address] Assigned Neuroscience Provider 02/06/24 03/07/24 Anastasia Stearns, RN Lead Area Plant Manager 02/06/24 documented as of this encounter
--- OUTSIDE RECORDS SUMMARY | 2024-05-14 12:01 | XMS_ITS | Encounter Summary ---
Author Organization [facility] Address [address] [place] [address] Care Team Providers Care Power Superintendent Name Role Phone Winston Villatoro OD Unavailable [phone] Denise Woodson Ra, APRN GUARD MUSEUM Unavailable [phone] Denise Woodson Ra CAP MAKER GUARD MUSEUM Primary Care Provid er Usha Simon APRN GUARD MUSEUM Unavailable [phone] Dangelo Salinas MD Unavailable Usha Simon CAP MAKER GUARD MUSEUM Unavailable [phone] Anastasia Stearns RN Unavailable Germaine Lopez CHW Unavailable Reason for Visit * Reason Comments Flank Pain Encounter Details Date Type Department Care Team (Late st Contact Info) Description 03/03/2024 11:14 AM CDT - 03/03/2024 2:19 PM CDT Emergency [facility] Emergency Dept [address] [place] [address] Brayan Reich MD [facility] [address] [place] [address] Right flank pain; Right sided abdominal pain [...] How often do you attend pentecostal or cheondoism serv ices? Never 02/28/2024 Do you belong [...] Answer Date Recorded PHQ-2 Score 4 02/12/2024 [facility] - Occupational [...] directed by your provider today. Before using vahi-yzj-cdxrxal medications, ask your provider and make sure [...] sent through Care Everywhere. * Flank Pain (Setswana) documented in this encounter Medications at Time [...] Heart cath, closure atrial septal defect RW OSCILLOGRAPH TECHNICIAN (abstracted) Excision of lipoma on chest wall [...] Bilirubin Urine Negative Ketones Urine Negative Specific [place] Urine 1.005 Blood Urine Trace (*) pH [...] is identified. PETRONA HARRIS MD SYSTEM ID: [id number] EKG ECG was taken 03/03/24 at 11:41:13 Vent rate: 64 bpm CO interval: 160 ms QRS duration: 92 ms QT/Qtc-Baz: 402/414 ms P-R-T axes: 53 69 28 Normal sinus rhythm Possible left atrial enlargement Borderline ECG When compared to 02/13/24: No significant changes noted. ED Course Medications Administered Medications alum & mag hydroxide-simethicone (MAALOX) suspension 15 mL (15 mLs Oral $Given 03/03/24 1159) famotidine (PEPCID) tablet 20 mg (20 mg Oral $Given 03/03/24 1154) CT SCAN FLUSH (64 mLs Intravenous $Given 03/03/24 1225) iopamidol (ISOVUE-370) solution 500 mL (100 mLs Intravenous $Given 03/03/24 1218) Procedures Procedures Discussion of Management None Social Determinants of Health adding to complexity of care None ED Course Medical Decision Making / Diagnosis [facility] Diagnoses: None MIPS None MDM Alcon Zamora [...] statements to me. Brayan Reich MD 03/03/24 9633 Brayan Reich MD 03/03/24 6737 documented in this encounter Plan of Treatment Upcoming Encounters Date Type Department Care Team (Late st Contact Info) Description 05/26/2024 8:30 AM CDT Office Visit [facility] [address] [place] [phone] Denise Woodson Ra, CAP MAKER GUARD MUSEUM [address] [address] [place], [place] [address] 06/08/2024 8:30 AM CDT Office Visit [facility] [address] [place] [address] Denise Woodson Ra, CAP MAKER GUARD MUSEUM [address] [facility] [place], [place] [id number] Pending Results Name Type Priority Associated Diagnoses [...] Mental Health weekly - PT, OT and MOTOR ROOM CONTROLLER - PCP appointment 05/26/24 & 06/08/24 - Stroke Neurology Dr. Hoyos 04/14/24 #[phone] - Epilepsy Neurology Dr. Barcenas 05/05/24 follow up recommended in 2 months: 07/05/24 TBD. #[phone] - Vascular Dr. Zambrano 05/01/24 - follow up recommended in 6 months: 11/11/24 TBD #[phone]. - MTM if covered by insurance TBD [...] clinic with 24/7 after hours services available. Teletypewriter Operator will remain available as needed. documented [...] is identified. PETRONA HARRIS MD SYSTEM ID: [id number] Narrative 03/03/2024 2:[address] ABDOMEN [...] is identified. PETRONA HARRIS MD SYSTEM ID: [id number] Brayan Reich MD IMG CT ORDERABLES * CBC with platelets and differential (03/03/2024 11:49 AM CDT) [facility] Signature WBC Count 7.6 4.0 - 11.0 10e3/uL [...] LAB - BLOOD ORDERABL ES RH LABORATORY [facility] Acute Care Lab [address] Lab (1st floor, no room number) [place] [address] * Troponin T, High Sensitivity (03/03/2024 11:49 AM CDT) [facility] Troponin [...] LAB - BLOOD ORDERABL ES RH LABORATORY [facility] Acute Care Lab [address] [facility] Lab (1st floor, no room number) [place] [address], [facility] * Comprehensive metabolic panel (03/03/2024 11:49 [...] - BLOOD ORDERABL ES Performing Organization Address City/[facility]/ZIP Co de Phone Number [facility] Lab [address] Lab (1st floor, no room number) [place] [address] * HCG qualitative urine (03/03/2024 10:27 AM CDT) hCG Urine Qualitative Negative Negative PRATEEK 03/03/2024 12:05 PM CDT [facility] Comment:This test is for scr eening purposes. Results should be interpreted along with the clinical picture. Confirmation testing is available if warranted by ordering [id number], HCG Quantitative . Urine URINE SPECIMEN OBTAINED BY CLEAN CATCH PROCEDURE / Unknown Non-blood Collection / Unknown 03/03/2024 10:27 AM CDT 03/03/2024 10:33 AM CDT Brayan Reich MD LAB - URINE ORDERABL ES LABORATORY [facility] Care Lab [address] Lab (1st floor, no room number) [place] [address] * (ABNORMAL) UA with Microscopic reflex to Culture (03/03/2024 10:27 AM CDT) Color Urine Straw Colorless, Straw, Light Yellow, Yellow 03/03/2024 10:40 AM [facility] Appearance Urine Clear Clear 03/03/20 24 10:40 AM T LABORATORY Glucose Urine Negative Negative mg/dL 03/03/2024 10:40 AM [facility] Bilirubin Urine Negative Negative 10:40 AM T LABORATORY Ketones Urine Negative Negative mg/dL 03/03/2024 10:40 AM [facility] Specific [place] Urine 1.005 1.003 - 1.035 03/03/2024 10:40 AM [facility] Blood Urine Trace(A) Negative 03/03/2024 10:40 AM [facility] pH Urine 7.5(H) 5.0 - 7.0 03/03/2024 10:40 AM [facility] Protein Albumin Urine Negative Negative mg/dL 03/03/2024 10:40 AM [facility] Urobilinogen Urine Normal Normal, 2.0 mg/dL 03/03/2024 10:40 AM [facility] Nitrite Urine Negative Negative 03/03/2024 10:40 AM T LABORATORY Leukocyte Esterase Urine Negative Negative 03/03/2024 10:40 AM [facility] Bacteria Urine Few(A) None Seen /HPF 03/03/2024 10:40 AM [facility] Mucus Urine Present(A) None Seen /LPF 03/03/2024 10:40 AM [facility] RBC Urine 1 <=2 /HPF 03/03/2024 10:40 AM [facility] WBC Urine 2 <=5 /HPF 03/03/2024 10:40 AM [facility] Squamous Epithelials Urine 10(H) <=1 /HPF 03/03/2024 10:40 AM T LABORATORY Hyaline Casts Urine 1 <=2 /LPF 03/03/2024 10:40 AM [facility] Urine URINE SPECIMEN OBTAINED BY CLEAN CATCH PROCEDURE / Unknown Non-blood Collection / Unknown 03/03/2024 10:27 AM CDT 03/03/2024 10:33 AM CDT Narrative LABORATORY - 03/03/2024 10:40 AM CDT Urine Culture not indicated Brayan Reich MD LAB - URINE ORDERABL ES LABORATORY [facility] Acute Care Lab [address] [place] Lab (1st floor, no room number) [place] [address], [facility] documented in this encounter Visit [...] CT scan. 1225 ($Given - Provi andreia: Danielaiiq Joann) famotidine (PEPCID) tablet 20 mg (COMPLETED) 20 mg, Oral, ONCE, On Sat03/03/24 at 1140, For 1 dose 1154 ($Given - Provi andreia: Елена Jose RN) iopamidol (ISOVUE-370) solution 500 mL (COMPLETED) 500 mL, Intravenous, ONCE, On Sat03/03/24 at 1220, For 1 dose 1218 ($Given - Provi andreia: Danielaiiq Joann) documented in this encounter Additional Health Concerns Active Problems Noted Date Diagnosed Date Increased risk of re-admission 02/18/2024 Assessment Noted Time PHQ-9 Depression Total Score: 16 024 3:27 PM CDT documented as of this encounter Care Teams Power Superintendent Relationship Specialty Start Date End Date Winston Villatoro OD [facility] [place] [address] [place] [address] PCP - Ophthalmology Ophthalmology 02/11/13 Denise Woodson Ra, APRN GUARD MUSEUM [address] [facility] [place] [address] PCP - General Family Practice 09/21/20 Denise Woodson Ra, APRN GUARD MUSEUM [address] [address] [place] [address] Assigned PCP 07/17/20 Usha Simon APRN GUARD MUSEUM 9[address] [facility] [id number] [place] [address] Nurse Practitioner Neurological Surgery 01/24/24 Dangelo Salinas MD [address] [place] [address] Neurology 01/27/24 Usha Simon APRN GUARD MUSEUM 9 [facility], [place] [address] Assigned Neuroscience Provider 02/06/24 03/07/24 Anastasia Stearns, RN Lead Teletypewriter Operator 02/06/24 Germaine Lopez, CHW Community Health Worker Primary Care - CC 02/18/24 documented as of this encounter
--- OUTSIDE RECORDS SUMMARY | 2024-05-14 12:01 | XMS_ITS | Encounter Summary ---
Author Organization [facility] Address [address] [place] [address] Care Team Providers Care Media Operator Name Role Phone Winston Villatoro OD Unavailable [phone] Denise Woodson Ra, APRN FLIGHT SUPERINTENDENT Unavailable [phone] Denise Woodson Ra, APRN FLIGHT SUPERINTENDENT Primary Care Provid er Usha Simon APRN FLIGHT SUPERINTENDENT Unavailable [phone] Dangelo Salinas MD Unavailable Usha Simon APRN FLIGHT SUPERINTENDENT Unavailable [phone] Anastasia Stearns RN Unavailable [phone] Germaine Lopez CHW Unavailable [phone] Encounter Details Date Type Department Care Team [...] Description 05/26/2024 8:30 AM CDT Office Visit [facility] [address] [place] [address] Denise Woodson Ra, FLEXIBLE BABYSITTER FLIGHT SUPERINTENDENT [address] [facility] [place], [place] [phone] 06/08/2024 8:30 AM CDT Office Visit [facility] [address] [place] [address] Denise Woodson Ra, FLEXIBLE BABYSITTER FLIGHT SUPERINTENDENT [address] [place], [place] [phone] documented as of this encounter Goals Goal [...] Mental Health weekly - PT, OT and BICYCLE REPAIRMAN - PCP appointment 05/26/24 & 06/08/24 - Stroke Neurology Dr. Hoyos 04/14/24 #[phone] - Epilepsy Neurology Dr. Barcenas 05/05/24 follow up recommended in 2 months: 07/05/24 TBD. #[phone] - Vascular Dr. Zambrano 05/01/24 - follow up recommended in 6 months: 11/11/24 TBD #[phone]. - MTM if covered by insurance TBD [...] clinic with 24/7 after hours services available. Precision Machining Instructor will remain available as needed. documented as of this encounter Visit Diagnoses Not on filedocumented in this encounter Additional Health Concerns Active Problems Noted Date Diagnosed Date Increased risk of re-admission 02/18/2024 Assessment Noted Time PHQ-9 Depression Total Score: 16 024 3:27 PM CDT documented as of this encounter Care Teams Media Operator Relationship Specialty Start Date End Date Winston Villatoro OD [facility] [address] [facility] [address] [place] [address] PCP - Ophthalmology Ophthalmology 02/11/13 Denise Woodson Ra, APRN FLIGHT SUPERINTENDENT [address] [facility] [place] [address] PCP - General Family Practice 09/21/20 Denise Woodson Ra, APRN FLIGHT SUPERINTENDENT [address] [place] [address] Assigned PCP 07/17/20 Usha Simon APRN FLIGHT SUPERINTENDENT 909 [facility] [id number] [place] [address] Nurse Practitioner Neurological Surgery 01/24/24 Dangelo Salinas MD [address] [place] [address] Neurology 01/27/24 Usha Simon APRN FLIGHT SUPERINTENDENT 909 [facility] [id number] [place] [address] Assigned Neuroscience Provider 02/06/24 03/07/24 Anastasia Stearns, RN Lead Precision Machining Instructor 02/06/24 Germaine Lopez, W Community Health Worker Primary Care - CC 02/18/24 documented as of this encounter
--- OUTSIDE RECORDS SUMMARY | 2024-05-14 12:01 | XMS_ITS | Encounter Summary ---
Author Organization [facility] Address [address] [place] [address] Care Team Providers Care Chipper Operator Name Role Phone Winston Villatoro OD Unavailable [phone] Denise Woodson Ra, APRN NIGHT CLERK AUDITOR Unavailable + [phone] Denise Woodson Ra SOLAR PROJECT ENGINEER NIGHT CLERK AUDITOR Primary Care Provid er Usha Simon APRN NIGHT CLERK AUDITOR Unavailable Dangelo Salinas MD Unavailable Usha Simon SOLAR PROJECT ENGINEER NIGHT CLERK AUDITOR Unavailable Anastasia Stearns RN Unavailable [phone] Germaine Lopez CHW Unavailable [phone] Reason for Referral * Consultation (Routine: Next available opening) - Pending Review Specialty Diagnoses / Procedures Referred By Nila shah Referred To Contact Diagnoses Flank pain Abdominal pain, epigastric Liliane Mcnair, PANilesC [address] [place] [address] Ri Acute [facility] Diag S[facility] [address] [facility] [address] [place] [address] Referral ID Status Reason Start Date Expiration Date V isits Requested Visits Authorized [id number] Pending Review 02/27/2024 02/26/2025 1 1 Question Answer Preferred Location: [facility] Acute & Diagnostic Services - [place] Service: Day of diagnosis - Future date [...] Description 02/27/2024 3:00 PM CDT Office Visit [facility] [place] [address] [place] [address] Liliane Mcnair PA-C [address] [place] [address] Flank pain (Primary [...] How often do you attend christianity or quaker serv ices? Never 02/28/2024 Do [...] Answer Date Recorded PHQ-2 Score 4 02/12/2024 [facility] [...] note were not included. Preventive Care Visit [facility] Liliane Mcnair PA-C, Physician Packing Shed Supervisor Feb 27, 2024 Assessment & Plan Flank [...] in any way. Thank you for choosing [facility] for your health care needs, Liliane Mcnair PA-C documented in this encounter Plan of Treatment Upcoming Encounters Date Type Department Care Team (Late st Contact Info) Description 05/26/2024 8:30 AM CDT Office Visit [facility] [address] [place] [phone] Denise Woodson Ra, SOLAR PROJECT ENGINEER [facility] [address] [place], [place] [phone] 06/08/2024 8:30 AM CDT [facility] [address] [facility] [place] [phone] Denise Woodson Ra, SOLAR PROJECT ENGINEER NIGHT CLERK AUDITOR [address] [facility] [place], [place] [phone] Scheduled Referrals Name Type Priority Associated Diagnoses [...] Mental Health weekly - PT, OT and PANTS PRESSER AUTOMATIC - PCP appointment 05/26/24 & 06/08/24 - Stroke Neurology Dr. Hoyos 04/14/24 #[phone] - Epilepsy Neurology Dr. Barcenas 05/05/24 follow up recommended in 2 months: 07/05/24 TBD. #[phone] - Vascular Dr. Zambrano 05/01/24 - follow up recommended in 6 months: 11/11/24 TBD #[phone]. - MTM if covered by insurance TBD [...] clinic with 24/7 after hours services available. Pastry Baker will remain available as needed. documented as [...] Total. Bili, TP) (02/27/2024 5:27 PM CDT) [facility] Sodium 139 135 - 145 [...] 8:32 PM CDT [facility] Comment:eGFR calculated us2020 CKD-EPI equation. Calcium 9.9 8.6 - 10.0 [...] - BLOOD ORDER NASRIN [facility] [address] [facility], [address] [place], [place] [address] * Lipase (02/27/2024 5:27 PM CDT) [facility] Lipase 24 13 - 60 U/L 02/28/2024 8:32 PM CDT [facility] Blood BLOOD SPECIMEN / Unknown Venipuncture / Unknown 02/27/2024 5:27 PM CDT 02/27/2024 5:27 PM CDT Liliane Mcnair PA-C LAB - BLOOD ORDER NASRIN [facility] [address] [facility], [address] [id number] * CBC with platelets and differential (02/27/2024 5:26 PM CDT) [facility] WBC Count 9.0 4.0 - 11.0 10e3/uL [...] LAB - BLOOD ORDER NASRIN [facility] [place] [facility] [address] [facility] [address] [place] [address], [facility] [phone] * (ABNORMAL) UA Microscopic with Reflex to Culture (02/27/2024 3:42 PM CDT) Bacteria Urine Moderate( A) None Seen /HPF PRATEEK 02/27/2024 4:00 PM CDT [facility] RBC Urine 2-5(A) 0-2 /HPF /HPF PRATEEK 02/27/2024 4:00 PM CDT [facility] WBC Urine 0-5 0-5 /HPF /HPF PRATEEK 02/27/2024 4:00 PM CDT [facility] Squamous Epithelials Urine Moderate( A) None Seen /LPF PRTAEEK 02/27/2024 4:00 PM CDT [facility] Urine MID-STREAM URINE SPECIMEN / Unknown Non-blood Collection / Unknown 02/27/2024 3:42 PM CDT 02/27/2024 3:42 PM CDT Narrative [facility] - 02/27/2024 4:00 PM CDT Urine Culture not indicated Liliane Mcnair PA-C LAB - URINE ORDER NASRIN [facility] [place] [facility] [address] [facility] [address] [place] [address], [facility] [phone] * (ABNORMAL) UA Macroscopic with reflex to [...] 02/27/2024 3:52 PM CDT [facility] Specific [place] Urine 1.025 1.003 - 1.035 02/27/2024 3:52 [...] LAB - URINE ORDER NASRIN EA LAB[facility] [place] [facility] [address] [facility] [address] [place] [address], [facility] [phone] documented in this encounter Visit Diagnoses Diagnosis Flank pain- Primary Abdominal pain, unspecified site Abdominal pain, epigastric Cerebrovascular accident (CVA), unspecified mechanism (H) documented in this encounter Additional Health Concerns Active Problems Noted Date Diagnosed Date Increased risk of re-admission 02/18/2024 Assessment Noted Time PHQ-9 Depression Total Score: 16 024 3:27 PM CDT documented as of this encounter Care Teams Chipper Operator Relationship Specialty Start Date End Date Winston Villatoro OD [facility] [address] [facility] [address] [place] [address] PCP - Ophthalmology Ophthalmology 02/11/13 Denise Woodson Ra, APRN NIGHT CLERK AUDITOR [address] [place] [address] PCP - General Family Practice 09/21/20 Denise Woodson Ra, APRN NIGHT CLERK AUDITOR [address] [place] [address] Assigned PCP 07/17/20 Usha Simon APRN NIGHT CLERK AUDITOR 909 [facility], [place] [address] Nurse Practitioner Neurological Surgery 01/24/24 Dangelo Salinas MD [address] [place] [address] Neurology 01/27/24 Usha Simon APRN NIGHT CLERK AUDITOR 909 [facility]121[place], [place] [address] Assigned Neuroscience Provider 02/06/24 03/07/24 Anastasia Stearns, RN Lead Pastry Baker 02/06/24 Germaine Lopez, W Community Health Worker Primary Care - CC 02/18/24 documented as of this encounter
--- OUTSIDE RECORDS SUMMARY | 2024-05-14 12:02 | XMS_ITS | Encounter Summary ---
Author Organization [facility] Address [address] [place] [address]. [place] [address] Care Team Providers Care Foundation Coordinator Name Role Phone Winston Villatoro OD Unavailable [phone] Denise Woodson Ra, APRN LOCK EXPERT Unavailable [phone] Denise Woodson Ra RV DETAILER LOCK EXPERT Primary Care Provid er Usha Simon APRN LOCK EXPERT Unavailable [phone] Dangelo Salinas MD Unavailable Usha Simon APRN LOCK EXPERT Unavailable [phone] Anastasia Stearns RN Unavailable [phone] Reason for Visit * Rehab Therapy Integrated Services (Routine) - Authorized Specialty Diagnoses / Procedures Referred By Contac t Referred To Contact Diagnoses Cerebrovascular accident (CVA), unspecified mechanism (H) [address] [address] Referral ID Status Reason Start Date Expiration Date V isits Requested Visits Authorized [id number] Authorized 09/16/2023 09/15/2024 365 365 Encounter Details Date Type Department Care Team (Late st Contact Info) Description 02/14/2024 12:45 PM CDT Therapy Visit [address] [phone] Danya You, AMAIRANI [address] [place] [address] Isabel Beaulieu, OTR [address] [address] Cerebrovascular accident (CVA), unspecified mechanism (H) (Primary [...] Description 05/26/2024 8:30 AM CDT [facility] [address] [place] [phone] Denise Woodson Ra, APRN LOCK EXPERT [address] [facility] [place] [address] 06/08/2024 8:30 AM CDT [facility] [address] [place] [phone] Denise Woodson Ra, BARRERA LOCK EXPERT [address] [facility] [place], [place] [address] documented as of this encounter Visit Diagnoses Diagnosis Cerebrovascular accident (CVA), unspecified mechanism (H)- Primary documented in this encounter Additional Health Concerns Assessment Noted Time PHQ-9 Depression Total Score: 16 024 3:27 PM CDT documented as of this encounter Care Teams Foundation Coordinator Relationship Specialty Start Date End Date Winston Villatoro OD [facility] [place] [address] [place] [address] PCP - Ophthalmology Ophthalmology 02/11/13 Denise Woodson Ra, APRN LOCK EXPERT [address] [place] [address] PCP - General Family Practice 09/21/20 Denise Woodson Ra, APRN LOCK EXPERT [address] [place] [address] Assigned PCP 07/17/20 Usha Simon APRN LOCK EXPERT [address] [address] Nurse Practitioner Neurological Surgery 01/24/24 Dangelo Salinas MD [address] [place] [address] Neurology 01/27/24 Usha Simon APRN LOCK EXPERT [address] [address] Assigned Neuroscience Provider 02/06/24 03/07/24 Anastasia Stearns, RN Lead Striper Machine 02/06/24 documented as of this encounter
--- OUTSIDE RECORDS SUMMARY | 2024-05-14 12:02 | XMS_ITS | Encounter Summary ---
Author Organization [facility] Address [address] [place] [address]. [place] [address] Care Team Providers Care Insurance Associate Name Role Phone Winston Villatoro OD Unavailable [phone] Denise Woodson Ra, APRN TURKEY PINNER Unavailable +- [phone] Denise Woodson Ra PATTERN DRAFTER TURKEY PINNER Primary Care Provid er Usha Simon APRN TURKEY PINNER Unavailable [phone] Dangelo Salinas MD Unavailable Usha Simon APRN TURKEY PINNER Unavailable [phone] Anastasia Stearns RN Unavailable [phone] Reason for Visit * Rehab Therapy Integrated Services (Routine) - Authorized Specialty Diagnoses / Procedures Referred By Contac t Referred To Contact Diagnoses Cerebrovascular accident (CVA), unspecified mechanism (H) [address] [address] Referral ID Status Reason Start Date Expiration Date V isits Requested Visits Authorized [id number] Authorized 09/16/2023 09/15/2024 365 365 Encounter Details Date Type Department Care Team (Latest Contact Info) Description 02/14/2024 2:45 PM CDT Therapy Visit [address] [phone] Danya You, AMAIRANI [address] [place] [address] PatiElisha clarkbrian Sims, PT [address] [place] [address] Cerebrovascular accident (CVA), unspecified mechanism (H) (Primary [...] AM CDT [facility] [address] [place] [phone] Denise Woodson Ra, BARRERA TURKEY PINNER [address] [facility] [place] [address] 06/08/2024 8:30 AM CDT Office Visit [facility] [place] [address] [place] [address] Denise Woodson Ra, BARRERA TURKEY PINNER [address] [place] [place] [address] documented as of this encounter Visit Diagnoses Diagnosis Cerebrovascular accident (CVA), unspecified mechanism (H)- Primary documented in this encounter Additional Health Concerns Assessment Noted Time PHQ-9 Depression Total Score: 16 024 3:27 PM CDT documented as of this encounter Care Teams Insurance Associate Relationship Specialty Start Date End Date Winston Villatoro OD [facility] [place] [address] [place] [address] PCP - Ophthalmology Ophthalmology 02/11/13 Denise Woodson Ra, APRN TURKEY PINNER [id number] [place] [address] PCP - General Family Practice 09/21/20 Denise Woodson Ra, APRN TURKEY PINNER [address] [place] [address] Assigned PCP 07/17/20 Usha Simon APRN TURKEY PINNER [address] [place] [address] Nurse Practitioner Neurological Surgery 01/24/24 aDngelo Salinas MD [address] [place] [address] Neurology 01/27/24 Usha Simon APRN TURKEY PINNER [address] [place] [address] Assigned Neuroscience Provider 02/06/24 03/07/24 Anastasia Stearns, RN Lead Loss Prevention Agent 02/06/24 documented as of this encounter
--- OUTSIDE RECORDS SUMMARY | 2024-05-14 12:02 | XMS_ITS | Encounter Summary ---
Author Organization [facility] Address [address] [place] [address]. [place] [address] Care Team Providers Care Patrol Sergeant Name Role Phone Winston Villatoro OD Unavailable [phone] Denise Woodson Ra, APRN PHYSICAL SECURITY MANAGER Unavailable [phone]- [phone] Denise Woodson Ra, APRN PHYSICAL SECURITY MANAGER Primary Care Provid er Usha Simon APRN PHYSICAL SECURITY MANAGER Unavailable [phone]- [phone] Dangelo Salinas MD Unavailable Encounter Details Date Type Department Care Team (Late st Contact Info) Description 02/05/2024 [facility] Neurosurgery Clinic [address] [place] [address] Robin Zepeda MD [address] [place] [address] [id number] [address] Social History Tobacco Use Types [...] CDT Office Visit [facility] [place] [address] [place] [phone] Denise Woodson Ra, COMPUTER SCIENCE PROFESSOR PHYSICAL SECURITY MANAGER [address] [facility] [place], [place] [address] 06/08/2024 8:30 AM CDT Office Visit [facility] [place] [address] [place] [phone] Denise Woodson Ra, BARRERA PHYSICAL SECURITY MANAGER [address] [facility] [place], [place] [address] documented as of this encounter Visit Diagnoses Not on filedocumented in this encounter Additional Health Concerns Assessment Noted Time PHQ-9 Depression Total Score: 14 024 9:33 AM CDT documented as of this encounter Care Teams Patrol Sergeant Relationship Specialty Start Date End Date Winston Villatoro OD [facility] [place] [address] [place] [address] PCP - Ophthalmology Ophthalmology 02/11/13 Denise Woodson Ra, COMPUTER SCIENCE PROFESSOR PHYSICAL SECURITY MANAGER [address] [place] [address] PCP - General Family Practice 09/21/20 Denise Woodson Ra, APRN PHYSICAL SECURITY MANAGER [address] [place] [address] Assigned PCP 07/17/20 Usha Simon APRN PHYSICAL SECURITY MANAGER 9 [facility], [place] [address] Nurse Practitioner Neurological Surgery 01/24/24 Dangelo Salinas MD [address] [place] [address] Neurology 01/27/24 documented as of this encounter
--- OUTSIDE RECORDS SUMMARY | 2024-05-14 12:02 | XMS_ITS | Encounter Summary ---
Author Organization [facility] Address [address] [place] [address]. [place] [address] Care Team Providers Care Manager Combination Name Role Phone Winston Villatoro OD Unavailable [phone] Denise Woodson Ra, APRN HORSER UP Unavailable + [phone] Denise Woodson Ra TEASEL GIG OPERATOR HORSER UP Primary Care Provid er Usha Simon APRN HORSER UP Unavailable + [phone] Dangelo Salinas MD Unavailable Usha Simon APRN HORSER UP Unavailable + [phone] Anastasia Stearns RN Unavailable [phone] Reason for Visit * Reason Onset Date Comments Medication Request 02/14/2024 Forms 02/14/2024 Encounter Details Date Type Department Care Team (Late st Contact Info) Description 02/14/2024 [facility] Medical Advice [facility] [address] [place] [address] Denise Woodson Ra, APRN HORSER UP [address] [place] [address] Medication Request; Forms Social History [...] - 02/14/2024 10:53 AM CDT Denise- see flipClasst message below. Are you taking over requested medications? Also I do not see forms encounter and note to pick-up form? Please advise. Filomena Gomez RN documented in this encounter Plan of Treatment Upcoming Encounters Date Type Department Care Team (Late st Contact Info) Description 05/26/2024 8:30 AM CDT Office Visit [facility] [place] [address] [place] [phone] Denise Woodson Ra, APRN CNP [address] [place] [id number] 06/08/2024 8:30 AM CDT Office Visit [facility] [place] [address] [place] [phone] Denise Woodson Ra, APRN CNP [address] [facility] [place] [address] documented as of this encounter Visit Diagnoses Diagnosis Cerebrovascular accident (CVA), unspecified mechanism (H) History of seizure documented in this encounter Additional Health Concerns Assessment Noted Time PHQ-9 Depression Total Score: 16 024 3:27 PM CDT documented as of this encounter Care Teams Manager Combination Relationship Specialty Start Date End Date Shauna Winston SeAMELIE [facility] [place] [address] [place] [address] PCP - Ophthalmology Ophthalmology 02/11/13 Denise Woodson Ra, APRN [place] [address] [place] [address] PCP - General Family Practice 09/21/20 Denise Woodson Ra, APRN [place] [address] [place] [address] Assigned PCP 07/17/20 Usha Simon APRN HORSER UP [address] [place] [address] Nurse Practitioner Neurological Surgery 01/24/24 Dangelo Salinas MD [address] [address] Neurology 01/27/24 Usha Simon APRN HORSER UP [address] [place] [address] Assigned Neuroscience Provider 02/06/24 03/07/24 Anastasia Stearns RN Lead Direct Marketing Manager 02/06/24 documented as of this encounter
--- OUTSIDE RECORDS SUMMARY | 2024-05-14 12:02 | XMS_ITS | Encounter Summary ---
Author Organization [facility] Address [address] [place] [address] Care Team Providers Care Humanities Division Chair Name Role Phone Winston Villatoro OD Unavailable [phone] Denise Woodson Ra, APRN TENNIS PROFESSIONAL Unavailable +- [phone] Denise Woodson Ra QUALITY ASSURANCE ASSOCIATE TENNIS PROFESSIONAL Primary Care Provid er Usha Simon APRN TENNIS PROFESSIONAL Unavailable + [phone] Dangelo Salinas MD Unavailable Usha Simon APRN TENNIS PROFESSIONAL Unavailable +- [phone] Anastasia Stearns RN Unavailable [phone] Reason for Visit * Reason Onset Date Comments Appointment 02/06/2024 Follow-up 4 PHQ9 Encounter Details Date Type Department Care Team (Late st Contact Info) Description 02/06/2024 [facility] [address] 3rd [place] [address] Meche De La Cruz RN [...] and getting her connected with a FP Childbirth Educator. Has good family support. Patient is aware [...] 8:30 AM CDT Office Visit [facility] [address] [place] [phone] Denise Woodson Ra, QUALITY ASSURANCE ASSOCIATE TENNIS PROFESSIONAL [address] [place] [address] 06/08/2024 8:30 AM CDT Office Visit [facility] [address] [place] [phone] Denise Woodson Ra, APRN TENNIS PROFESSIONAL [address] [place] [address] documented as of this encounter Visit Diagnoses Not on filedocumented in this encounter Additional Health Concerns Assessment Noted Time PHQ-9 Depression Total Score: 14 024 9:33 AM CDT documented as of this encounter Care Teams Humanities Division Chair Relationship Specialty Start Date End Date Winston Villatoro OD [facility] [place] [address] [place] [address] PCP - Ophthalmology Ophthalmology 02/11/13 Denise Woodson Ra, APRN TENNIS PROFESSIONAL [address] [place] [address] PCP - General Family Practice 09/21/20 Denise Woodson Ra, APRN TENNIS PROFESSIONAL [address] [place] [address] Assigned PCP 07/17/20 Usha Simon APRN TENNIS PROFESSIONAL [address] [place] [address] Nurse Practitioner Neurological Surgery 01/24/24 Dangelo Salinas MD [address] [id number] Neurology 01/27/24 Usha Simon APRN TENNIS PROFESSIONAL [address] [place] [address] Assigned Neuroscience Provider 02/06/24 03/07/24 Anastasia Stearns, RN Lead Childbirth Educator 02/06/24 documented as of this encounter
--- OUTSIDE RECORDS SUMMARY | 2024-05-14 12:02 | XMS_ITS | Encounter Summary ---
Author Organization [facility] Address [address] [place] [address] Care Team Providers Care Chili Pepper Grinder Name Role Phone Winston Villatoro OD Unavailable [phone] Denise Woodson Ra, APRN MEDICAL LABORATORY TECHNICIANS Unavailable + [phone] Denise Woodson Ra INVOICE CHECKER MEDICAL LABORATORY TECHNICIANS Primary Care Provid er Usha Simon APRN MEDICAL LABORATORY TECHNICIANS Unavailable + [phone] Dangelo Salinas MD Unavailable Usha Simon APRN MEDICAL LABORATORY TECHNICIANS Unavailable + [phone] Anastasia Stearns RN Unavailable [phone] Encounter Details Date Type Department Care Team (Late st Contact Info) Description 02/12/2024 [facility] Neurosurgery Clinic [address] [place] [address] Robin Zepeda MD [address] [place], [place] [id number], [place] [address] Social History Tobacco Use Types Packs/Day Years [...] Description 05/26/2024 8:30 AM CDT [facility] [address] [place] [phone] Denise Woodson Ra, APRN MEDICAL LABORATORY TECHNICIANS [address] [facility] [place] [id number] 06/08/2024 8:30 AM CDT Office [facility] [place] [address] [place] [address] Denise Woodson Ra, BARRERA MEDICAL LABORATORY TECHNICIANS [address] [facility] [place] [address] documented as of this encounter Visit Diagnoses Not on filedocumented in this encounter Additional Health Concerns Assessment Noted Time PHQ-9 Depression Total Score: 16 024 3:27 PM CDT documented as of this encounter Care Teams Chili Pepper Grinder Relationship Specialty Start Date End Date Winston Villatoro OD [facility] [place] [facility] [address] [place] [address] PCP - Ophthalmology Ophthalmology 02/11/13 Denise Woodson Ra, APRN MEDICAL LABORATORY TECHNICIANS [address] [place] [address] PCP - General Family Practice 09/21/20 Denise Woodson Ra, APRN MEDICAL LABORATORY TECHNICIANS [address] [place] [address] Assigned PCP 07/17/20 Usha Simon APRN MEDICAL LABORATORY TECHNICIANS [address] [address] Nurse Practitioner Neurological Surgery 01/24/24 Dangelo Salinas MD [address] [place] [address] Neurology 01/27/24 Usha Simon APRN MEDICAL LABORATORY TECHNICIANS [address] [address] Assigned Neuroscience Provider 02/06/24 03/07/24 Anastasia Stearns, RN Lead Disaster Recovery Analyst 02/06/24 documented as of this encounter
--- OUTSIDE RECORDS SUMMARY | 2024-05-14 12:02 | XMS_ITS | Encounter Summary ---
Author Organization [facility] Address [address] [place] [address]. [place] [address] Care Team Providers Care Test Conductor Name Role Phone Winston Villatoro OD Unavailable [phone] Denise Woodson Ra, APRN RETORT OR CONDENSER PRESS OPERATOR Unavailable +- [phone] Denise Woodson Ra ASSISTANT CHILD CARE TEACHER RETORT OR CONDENSER PRESS OPERATOR Primary Care Provid er Usha Simon APRN RETORT OR CONDENSER PRESS OPERATOR Unavailable [phone] Dangelo Salinas MD Unavailable Usha Simon APRN RETORT OR CONDENSER PRESS OPERATOR Unavailable [phone] Anastasia Stearns RN Unavailable [phone] Reason for Visit * Rehab Therapy Integrated Services (Routine) - Authorized Specialty Diagnoses / Procedures Referred By Contac t Referred To Contact Diagnoses Cerebrovascular accident (CVA), unspecified mechanism (H) [address] [address] Referral ID Status Reason Start Date Expiration Date V isits Requested Visits Authorized [id number] Authorized 09/16/2023 09/15/2024 365 365 Encounter Details Date Type Department Care Team (Latest Contact Info) Description 02/07/2024 2:00 PM CDT Therapy Visit [address] [address] Danya You, AMAIRANI [address] [place] [address] Charis Chacon, [facility] [address] [place] [address] Cerebrovascular accident (CVA), unspecified mechanism (H) (Primary [...] Description 05/26/2024 8:30 AM CDT [facility] [address] [place] [address] Denise Woodson Ra, APRN RETORT OR CONDENSER PRESS OPERATOR [address] [place] [address] 06/08/2024 8:30 AM CDT [facility] [address] [place] [address] Denise Woodson Ra, APRN RETORT OR CONDENSER PRESS OPERATOR [address] [facility] [place], [place] 169[address]68 documented as of this encounter Visit Diagnoses Diagnosis Cerebrovascular accident (CVA), unspecified mechanism (H)- Primary documented in this encounter Additional Health Concerns Assessment Noted Time PHQ-9 Depression Total Score: 14 024 9:33 AM CDT documented as of this encounter Care Teams Test Conductor Relationship Specialty Start Date End Date ShaunaWinston moralez OD [facility] [place] [address] [place] [address] PCP - Ophthalmology Ophthalmology 02/11/13 Denise Woodson Ra, APRN RETORT OR CONDENSER PRESS OPERATOR [address] [place] [address] PCP - General Family Practice 09/21/20 Denise Woodson Ra, APRN RETORT OR CONDENSER PRESS OPERATOR [address] [place] [address] Assigned PCP 07/17/20 Usha Simon APRN RETORT OR CONDENSER PRESS OPERATOR [address] [address] Nurse Practitioner Neurological Surgery 01/24/24 Dangelo Salinas MD [address] [place] [address] Neurology 01/27/24 Usha Simon APRN RETORT OR CONDENSER PRESS OPERATOR [address] [address] Assigned Neuroscience Provider 02/06/24 03/07/24 Anastasia Stearns, RN Lead Crap Shooter 02/06/24 documented as of this encounter
--- OUTSIDE RECORDS SUMMARY | 2024-05-14 12:02 | XMS_ITS | Encounter Summary ---
Author Organization [facility] Address [address] [place] [address]. [place] [address] Care Team Providers Care Store Team Leader Name Role Phone Winston Villatoro OD Unavailable [phone] Denise Woodson Ra, APRN TEN PIN BOWLING CENTRE MANAGER Unavailable + [phone] Denise Woodson Ra, APRN TEN PIN BOWLING CENTRE MANAGER Primary Care Provid er Usha Simon APRN TEN PIN BOWLING CENTRE MANAGER Unavailable + [phone] Dangelo Salinas MD Unavailable Usha Simon APRN TEN PIN BOWLING CENTRE MANAGER Unavailable + [phone] Anastasia Stearns RN Unavailable [phone] Encounter Details Date Type Department Care Team (Late st Contact Info) Description 02/06/2024 [facility] Medical Advice [facility] [address] [place] [address] Denise Woodson Ra, APRN TEN PIN BOWLING CENTRE MANAGER [address] [place] [address] H/O prolonged Q-T interval on [...] 8:44 AM CDT Scheduled. Qing Copeland Lead Appraiser [employer] [facility] Ginny * Telephone Encounter - Leslie Mcclellan RN - 02/06/2024 12:51 PM CDT Please see [facility] and advise. Leslie Mcclellan RN, BSN [facility] documented in this encounter Plan of Treatment Upcoming Encounters Date Type Department Care Team (Late st Contact Info) Description 05/26/2024 8:30 AM CDT [facility] [address] [place] [phone] Denise Woodson Ra, APRN TEN PIN BOWLING CENTRE MANAGER [address] [facility] [place] [id number] 06/08/2024 8:30 AM CDT [facility] [address] [place] [phone] Denise Woodson Ra, APRN TEN PIN BOWLING CENTRE MANAGER [address] [place] [id number] documented as of this encounter Visit Diagnoses Diagnosis H/O prolonged Q-T interval on ECG- Primary Personal history of other diseases of circulatory system documented in this encounter Additional Health Concerns Assessment Noted Time PHQ-9 Depression Total Score: 14 024 9:33 AM CDT documented as of this encounter Care Teams Store Team Leader Relationship Specialty Start Date End Date Winston [facility]atoro OD [facility] [place] [address] [place] [address] PCP - Ophthalmology Ophthalmology 02/11/13 Denise Woodson Ra, DAIRY CONSULTANT TEN PIN BOWLING CENTRE MANAGER [address] [address] JULI[address] [place] [address] PCP - General Family Practice 09/21/20 Denise Woodson Ra, DAIRY CONSULTANT TEN PIN BOWLING CENTRE MANAGER [address] [place] [place], [place] [id number] Assigned PCP 07/17/20 Usha Simon APRN TEN PIN BOWLING CENTRE MANAGER [address] [address] Nurse Practitioner Neurological Surgery 01/24/24 Dangelo Salinas MD [address] [place] [address] Neurology 01/27/24 Usha Simon APRN TEN PIN BOWLING CENTRE MANAGER [address] [address] Assigned Neuroscience Provider 02/06/24 03/07/24 Anastasia Stearns, RN Lead Ultrasound Technologist Sonographer 02/06/24 documented as of this encounter
--- OUTSIDE RECORDS SUMMARY | 2024-05-14 12:02 | XMS_ITS | Encounter Summary ---
Author Organization [facility] Address [address] [place] [address] Care Team Providers Care Gear Shaver Set Up Operator Name Role Phone ShaunaWinston OD Unavailable [phone] Denise Woodson Ra, APRN BUILDING MAINTENANCE TECHNICIAN Unavailable [phone] Denise Woodson Ra, APRN BUILDING MAINTENANCE TECHNICIAN Primary Care Provid er Usha Simon APRN BUILDING MAINTENANCE TECHNICIAN Unavailable [phone] Dangelo Salinas MD Unavailable Usha Simon APRN BUILDING MAINTENANCE TECHNICIAN Unavailable [phone] Anastasia Stearns RN Unavailable [phone] Encounter Details Date Type Department Care Team [...] 8:30 AM CDT Office Visit [facility] [place] [address] [facility] [place] [place] [phone] Denise Woodson Ra, BARRERA BUILDING MAINTENANCE TECHNICIAN [address] [place] [address] 06/08/2024 8:30 AM CDT Office Visit [facility] [place] [address] [facility] [place] [phone] Denise Woodson Ra, BARRERA BUILDING MAINTENANCE TECHNICIAN [address] [place] [address] documented as of this encounter Visit Diagnoses Not on filedocumented in this encounter Additional Health Concerns Assessment Noted Time PHQ-9 Depression Total Score: 16 024 3:27 PM CDT documented as of this encounter Care Teams Gear Shaver Set Up Operator Relationship Specialty Start Date End Date Winston Villatoro OD [facility] [place] [address] [facility] [place] [address] PCP - Ophthalmology Ophthalmology 02/11/13 Denise Woodson Ra, APRN BUILDING MAINTENANCE TECHNICIAN [address] [place] [address] PCP - General Family Practice 09/21/20 Denise Woodson Ra, APRN CNP [address] [place] [address] Assigned PCP 07/17/20 Usha Simon APRN BUILDING MAINTENANCE TECHNICIAN [address] [place], [place] [address] [address] Nurse Practitioner Neurological Surgery 01/24/24 Dangelo Salinas MD [address] [place] [address] Neurology 01/27/24 Usha Simon APRN BUILDING MAINTENANCE TECHNICIAN [address] [facility] [address] Assigned Neuroscience Provider 02/06/24 03/07/24 Anastasia Stearns, RN Lead Food Assembler Kitchen 02/06/24 documented as of this encounter
--- OUTSIDE RECORDS SUMMARY | 2024-05-14 12:02 | XMS_ITS | Encounter Summary ---
Author Organization [facility] Address [address] [place] [address]. [place] [address] Care Team Providers Care Senior Project Coordinator Name Role Phone Winston Villatoro OD Unavailable [phone] Denise Woodson Ra, APRN NON CDL DRIVER Unavailable [phone] Denise Woodson Ra, APRN NON CDL DRIVER Primary Care Provid er Usha Simon APRN NON CDL DRIVER Unavailable [phone] Dangelo Salinas MD Unavailable Usha Simon APRN NON CDL DRIVER Unavailable [phone] Anastasia Stearns RN Unavailable [phone] Reason for Visit * Reason Comments Video Visit Dural AVF Encounter Details Date Type Department Care Team (Latest Contact Info) Description 02/12/2024 3:40 PM CDT Virtual Visit [facility] [address] [place] [address] Robin Zepeda MD [address] [place] [address] [id number] [address] Dural arteriovenous fistula (Primary Dx) [...] or virtual. Call Wendy RIBEIRO Neurosurgery Supervisor Hanging And Trimming with questions/concerns [phone] Thank you for using [employer] documented in this encounter Progress Notes * Robin Zepeda MD - 02/12/2024 3:40 PM CDT Virtual Visit Details Type of service: Phone Visit I the pleasure to talk to Jose today by telephone. She gave consent for this visit. Briefly Jose is a 48-year-old woman who lives in [place]. 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 Sheis lived in [place] for the last 4 years. Her had grown up there and graduated from [employer] from high school. She was in her normal state of health until about 3 months ago. At that time she felt that she could hear her heartbeat through her ear while sleeping. This prompted a visit to [facility] where she had a CT scan that showed an asymmetric occipital artery. This then prompted a cerebral angiogram at [place]. This was done by Dr. Gutierrez. The [...] the patient currently in the state of [place]? YES Visit mode:VIDEO If the visit is dropped, the patient can be reconnected by: TELEPHONE VISIT: Phone number: Telephone Information: Will anyone else be joining the visit? NO (If patient encounters technical issues they should call [phone]) How would you like to obtain [...] Description 05/26/2024 8:30 AM CDT Office Visit [facility] [place] [address] [place] [phone] Denise Woodson Ra, BARRERA NON CDL DRIVER [address] [place] [address] 06/08/2024 8:30 AM CDT Office Visit [facility] [place] [address] [facility] [place] [phone] Denise Woodson Ra, BARRERA NON CDL DRIVER [address] [place] [address] documented as of this encounter Visit Diagnoses Diagnosis Dural arteriovenous fistula- Primary Cerebral aneurysm, nonruptured documented in this encounter Additional Health Concerns Assessment Noted Time PHQ-9 Depression Total Score: 16 024 3:27 PM CDT documented as of this encounter Care Teams Senior Project Coordinator Relationship Specialty Start Date End Date Winston Villatoro, [facility] [place] [address] [place] [address] PCP - Ophthalmology Ophthalmology 02/11/13 Denise Woodson Ra, APRN CNP [address] [place] [address] PCP - General Family Practice 09/21/20 Denise Woodson Ra, APRN CNP [address] [place] [address] Assigned PCP 07/17/20 Usha Simon APRN NON CDL DRIVER [address] [facility] [address] Nurse Practitioner Neurological Surgery 01/24/24 Dangelo Salinas MD [address] [place] [address] Neurology 01/27/24 Usha Simon APRN NON CDL DRIVER [address] [facility] [address] Assigned Neuroscience Provider 02/06/24 03/07/24 Anastasia Stearns RN Lead Supervisor Hanging And Trimming 02/06/24 documented as of this encounter
--- OUTSIDE RECORDS SUMMARY | 2024-05-14 12:02 | XMS_ITS | Encounter Summary ---
Author Organization [facility] Address [address] [place] [address] Care Team Providers Care Floral Department Specialist Name Role Phone Winston Villatoro OD Unavailable [phone] Denise Woodson Ra, APRN LASER ENGINEER Unavailable [phone] Denise Woodson Ra ROLL COVERER LASER ENGINEER Primary Care Provid er Usha Simon APRN LASER ENGINEER Unavailable [phone] Dangelo Salinas MD Unavailable Usha Simon APRN LASER ENGINEER Unavailable [phone]- [phone] Anastasia Stearns RN Unavailable [phone] Reason for Visit * Reason Comments Dizziness Encounter Details Date Type Department Care Team (Late st Contact Info) Description 02/13/2024 12:11 PM CDT - 02/13/2024 3:28 PM CDT Emergency [facility] Emergency Dept [address] [place] [address] Dangelo Sylvester DO [facility] [address] [facility] [place] [place] [address] Dizziness Discharge Disposition: Home or Self Care [...] be sent through Care Everywhere. * Dizziness (Hebrew) documented in this encounter Medications at Time [...] encounter Consult Notes * Kaur Mason APRN LASER ENGINEER - 02/13/2024 12:16 PM CDT Images from the original note were not included. [facility] Stroke Code Note History of Present Illness [...] 02/04/24: On 01/04/24, the patient presented to [place] ED for evaluation of persistent headache and [...] to outpatient PT/OT. She presented again to [place] ER on 01/13 for continued frustration about [...] BPPV per primary team Kaur Mason APRN LASER ENGINEER Vascular Neurology To page me or covering stroke neurology team leader surgery, click here: AMCOM Choose Licensed Aircraft Maintenance Engineer tab at top, then select NEUROLOGY/ALL SITES [...] Reflexes: unable to test (telestroke) Coordination: normal bbdyrg-vz-bnha and gawk-sk-cbsi bilaterally without dysmetria Station/Gait: [facility] with no significant difficutly Labs CBC [...] communication per Philomena Originating site (patient location) [facility] Distant site (provider location) [facility] Clinically Significant Risk Factors Present on [...] history, physical and plan for [facility] [place]. 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 Discharged in setting of acute mental status change, concern for seizure, workup felt not consistent with seizure, episodes felt related to fatigue/stress. Functionally making progress with ongoing strength, balance, activity tolerance, and cognition below baseline, plan fo rhome with outpatient PT/OT/SENIOR TECHNICAL SPECIALIST. Past Medical History Medical History, Surgical History, [...] hearing B/L, midline tongue protrusion with nl ozoa-lx-rrpx movement, normal shoulder shrug). RUE strength 5/5: medical social consultant, finger abd, wrist flex/ext, elbow flex/ext. LUE strength 5/5: medical social consultant, finger abd, wrist flex/ext, elbow flex/ext. RLE strength 5/5: ankle flex/ext, knee flex/ext, hip flex. LLE strength 5/5: ankle flex/ext, knee flex/ext, hip flex. Sensation equal in all 4 extremities. No arm drift. Cerebellar: The patient is able to perform ibsudy-vptj-rwprwz, rapid pronation/supination, and hand rolling without issue. [...] a DVA. FRAN ROBBINS MD SYSTEM ID: [id number] CTA Head Neck with Contrast Final Result IMPRESSION: 1. Head CTA demonstrates no aneurysm or stenosis of the major intracranial arteries. 2. Neck CTA demonstrates no stenosis of the major cervical arteries. Findings were discussed with Dr. Sylvester at 12:42 hours CDT. FRAN ROBBINS MD SYSTEM ID: [id number] CT Head w/o Contrast Final Result IMPRESSION: No acute intracranial pathology. FRAN ROBBINS MD SYSTEM ID: [id number] EKG ECG taken at 1251, ECG read at 1251 Sinus rhythm with occasional PVCs Possible left atrial enlargement Borderline ECG No significant change as compared to prior, dated 02/04/2024. Rate 81 bpm. MD interval 166 ms. QRS duration 84 ms. [...] with stroke neurology. 1241 D/W Dr. Robbins ([facility]): No evidence of acute infarct, hemorrhage, [...] to home Medical Decision Making / Diagnosis [facility] Diagnoses: None Code Status: Prior [facility] Medical Decision Making: This 48-year-old female patient [...] Care: None. Disposition: See ED Course and [facility] ICD-10 Codes: ICD-10-CM 1. Dizziness R42 [...] CDT Office Visit [facility] [place] [address] [place] [phone] Denise Woodson Ra, ROLL COVERER LASER ENGINEER [address] [facility] [place] [place] [phone] 06/08/2024 8:30 AM CDT Office Visit [facility] [place] [address] [facility] [place] [phone] Denise Woodson Ra, ROLL COVERER LASER ENGINEER [address] [facility] [place] [phone] documented as of this encounter Procedures Procedure [...] Atrial Rate 64 BPM RADIOLOG Y RESULTS MD Interval 160 ms RADIOLOG Y RESULTS QRS Duration 92 ms RADIOLO GY RESULTS QT 402 ms RADIOLOGY RESULTS QTc 414 ms RADIOLOGY RESULTS P Chapin 53 degrees RADIOLOGY RESULTS R AXIS 69 degrees RADIOLOGY RESULTS T Chapin 28 degrees RADIOLOGY RESULTS Interpretation ECG Sinus [...] a DVA. FRAN ROBBINS MD SYSTEM ID: ??[id number] Narrative 02/13/2024 3:14 PM CDT MR BRAIN [...] a DVA. FRAN ROBBINS MD SYSTEM ID: [id number] Dangelo Chapin Sylvester DO IMG MRI ORDERABL ES * EKG 12-lead, tracing only (02/13/2024 12:51 PM CDT) Systolic Blood Pressure mmHg RADIOLOGY RESULTS Diastolic Blood Pressure mmHg RADIOLOGY RESULTS Ventricular Rate 81 BPM RAD IOLOGY RESULTS Atrial Rate 81 BPM RADIOLOG Y RESULTS MD Interval 166 ms RADIOLOG Y RESULTS QRS Duration 84 ms RADIOLO GY RESULTS QT 358 ms RADIOLOGY RESULTS QTc 415 ms RADIOLOGY RESULTS P Chapin 52 degrees RADIOLOGY RESULTS R AXIS 54 degrees RADIOLOGY RESULTS T Chapin 15 degrees RADIOLOGY RESULTS Interpretation ECG Sinus rhythm with occasional Premature ventricular complexes Possible Left atrial enlargement Borderline ECG When compared with ECG of 04-FEB-2024 14:46, QT has shortened Unconfirmed report - interpretation of this ECG is computer generated - see medical record for final interpretation Confirmed by - EMERGENCY ROOM, PHYSICIAN ([id number]), editorial cartoonist Jc Rouse ([id number]) on 02/13/2024 1:07:34 PM RADIOLOGY RESULTS 02/13/2024 [...] hours CDT. FRAN ROBBINS MD SYSTEM ID: ??[id number] Narrative 02/13/2024 12:49 PM CDT EXAM: CTA [...] of the upper aortic arch through the [place] of [place]. This CT angiogram data was [...] of the upper aortic arch through the [place] of [place]. This CT angiogram data was [...] hours CDT. FRAN ROBBINS MD SYSTEM ID: [id number] Dangelo Sylvester DO IMG CT ORDERABLE S * CT Head w/o Contrast (02/13/2024 12:28 PM CDT) Anatomical Region Laterality Modality Head, SUBRAD CT NEURO, SUBRA D CT NEURO, UMP CT NEURO, RAD CT Computed Tomography Impressions 02/13/2024 12:49 PM CDT IMPRESSION: No acute intracranial pathology. FRAN ROBBINS MD SYSTEM ID: ??[id number] Narrative 02/13/2024 12:49 PM CDT EXAM: CT HEAD W/O CONTRAST ??02/13/2024 12:28 PM HISTORY: ??Code Stroke to evaluate for potential thrombolysis and thrombectomy. PLEASE READ IMMEDIATELY. ?? COMPARISON: ??Brain MRI, Head CT and CTA 02/04/2024 TECHNIQUE: Using multidetector thin collimation helical acquisition technique, axial, coronal and sagittal CT images from the skull base to the vertex were obtained without intravenous contrast. Encephalographer (topogram) image(s) also obtained and reviewed. Dose [...] the vertex were obtained without intravenous contrast. Encephalographer (topogram) image(s) also obtained and reviewed. Dose [...] intracranial pathology. FRAN ROBBINS MD SYSTEM ID: [id number] Dangelo Sylvester DO IMG CT ORDERABLE S * Glucose by meter (02/13/2024 12:18 PM CDT) GLUCOSE BY METER POCT 95 70 - 99 mg/dL 02/13/2024 12:25 PM CDT [facility] POC Blood, venous BLOOD SPECIMEN / Unknown 02/13/2024 12:18 PM CDT 02/13/2024 12:25 PM CDT Dangelo Sylvester LAB - BEAKER POC T [facility]ORAT[facility] POC [facility] Lab [address] Lab (1st floor, no room number) [place] [address], [facility] * CBC with platelets [...] CDT Dangelo Sylvester DO LAB - BLOOD LUC[facility] Organization Address City/State/ZIP Co de Phone Number [facility] Lab [address] [facility] Lab (1st floor, no room number) [place] [address] * hCG Qualitative (02/13/2024 12:16 PM CDT) hCG Serum Qualitative Negative Negative PRATEEK 02/13/2024 12:49 PM CDT [facility] Comment:This test is for scr eening purposes. Results should be interpreted along with the clinical picture. Confirmation testing is available if warranted by ordering [id number], HCG Quantitative . Blood BLOOD SPECIMEN / Unknown Venipuncture / Unknown 02/13/2024 12:16 PM CDT 02/13/2024 12:20 PM CDT Dangelo Sylvester LAB - BLOOD PAM SHEETS Performing Organization Address City/[facility]/ZIP Co de Phone Number [facility] Acute Care Lab [address] Lab (1st floor, no room number) [place] [address], [facility] * Troponin T, High [...] - BLOOD PAM SHEETS Performing Organization Address City/[facility]/ZIP Co de Phone Number [facility] Lab [address] Lab (1st floor, no room number) [place] [address], [facility] * Partial thromboplastin time (02/13/2024 12:16 PM CDT) aPTT 26 22 - 38 Seconds 02/13/2024 12:42 PM CDT LABORATORY Blood BLOOD SPECIMEN / Unknown Venipuncture / Unknown 02/13/2024 12:16 PM CDT 02/13/2024 12:20 PM CDT Dangelo Sylvester LAB - BLOOD PAM SHEETS Performing Organization Address City/[facility]/ZIP Co de Phone Number [facility] Lab [address] Lab (1st floor, no room number) [place] [address], [place] * INR (02/13/2024 12:16 PM CDT) INR 0.94 0.85 - 1.15 02/13/2024 12:42 PM CDT [facility] Blood BLOOD SPECIMEN / Unknown Venipuncture / Unknown 02/13/2024 12:16 PM CDT 02/13/2024 12:20 PM CDT Dangelo Sylvester LAB - BLOOD PAM SHEETS Performing Organization Address [facility] Co de Phone Number [facility] [address] [facility] Lab (1st floor, no room number) [place] [phone] [place] [address] * Basic metabolic panel (02/13/2024 12:16 PM [...] DO LAB - BLOOD LUNAE SUDEEP LABORATORY [facility] Lab [address] [facility] Lab (1st floor, no room number) [place] [address], [facility] documented in this encounter [...] documented as of this encounter Care Teams Floral Department Specialist Relationship Specialty Start Date End Date Winston Villatoro OD [facility] [place] [address] [place] [address] PCP - Ophthalmology Ophthalmology 02/11/13 Denise Woodson Ra, APRN LASER ENGINEER [address] [place] [address] PCP - General Family Practice 09/21/20 Denise Woodson Ra ROLL COVERER LASER ENGINEER [address] [place] [address] Assigned PCP 07/17/20 Usha Simon APRN LASER ENGINEER [address] [address] Nurse Practitioner Neurological Surgery 01/24/24 Dangelo Salinas MD [address] [place] [address] Neurology 01/27/24 Usha Simon APRN LASER ENGINEER [address] [address] Assigned Neuroscience Provider 02/06/24 03/07/24 Anastasia Stearns, RN Lead Oxidation Engineer 02/06/24 documented as of this encounter
--- OUTSIDE RECORDS SUMMARY | 2024-05-14 12:02 | XMS_ITS | Encounter Summary ---
Author Organization [place] Address [address] [place] [address] Care Team Providers Care Skiver Welt End Name Role Phone ShaunaWinston OD Unavailable [phone] Denise Woodson Ra, APRN TITLE INSURANCE EXAMINER Unavailable [phone] Denise Woodson Ra, APRN TITLE INSURANCE EXAMINER Primary Care Provid er Usha Simon APRN TITLE INSURANCE EXAMINER Unavailable + [phone] Dangelo Salinas MD Unavailable Usha Simon APRN TITLE INSURANCE EXAMINER Unavailable + [phone] Anastasia Stearns RN Unavailable [phone] Reason for Referral * Care Coordination (Urgent: 3-5 Days) - Pending Review Specialty Diagnoses / Procedures Referred By Contac t Referred To Contact Diagnoses Fibromuscular dysplasia (H24) Cerebrovascular accident (CVA), unspecified mechanism (H) Denise Woodson Ra, TECHNICAL SUPPORT SPECIALIST TITLE INSURANCE EXAMINER [address] [place] [address] Referral ID Status Reason Start Date Expiration Date V isits Requested Visits Authorized [id number] Pending Review 02/06/2024 02/05/2025 1 1 Question [...] Review Specialty Diagnoses / Procedures [facility] Referred To Contact Diagnoses Fibromuscular dysplasia (H24) Cerebrovascular accident (CVA), unspecified mechanism (H) Denise Woodson Ra, APRN CNP [address] [place] [address] Referral ID Status Reason Start Date Expiration Date V isits Requested Visits Authorized [id number] Pending Review 02/06/2024 02/05/2025 1 1 Question Answer Reason for Referral: Epilepsy/Seizures Scheduling Instructions: [facility] will call you to coordinate your care as prescribed by your provider. If you don't hear from a medical sales representative within 2 business days, please [...] plan with any benefit or coverage questions. [employer] will call you to coordinate your care as prescribed by your provider. If you don't hear from a medical sales representative within 2 business days, please call . * Diagnostic Imaging CT Scan (Routine) - Closed Specialty Diagnoses / Procedures [facility] Referred To Contact Radiology. Diagnoses Fibromuscular dysplasia (H24) Procedures CTA Chest Abdomen Pelvis w Contrast Denise Woodson Ra, APRN CNP [address] [place] [address] Referral ID Status Reason Start Date Expiration Date Visits Re quested Visits Authorized [id number] Closed 02/06/2024 02/05/2025 1 1 Reason for Visit * Reason Comments Hospital F/U Encounter Details Date Type Department Care Team (Late st Contact Info) Description 02/06/2024 8:30 AM CDT Office Visit [facility] [address] [place] [phone] Denise Woodson Ra, TECHNICAL SUPPORT SPECIALIST TITLE INSURANCE EXAMINER [address] [place] [address] Fibromuscular dysplasia (H24) (Primary Dx); [...] to be sent to my team in [place] directly. Otherwise, I will not know that you were trying to reach out. You will also be contacted by a infant childcare provider shortly. They can help with scheduling and [...] Pelvis w Contrast; Future - Adult Neurology Feeder Loader Referral; Future - Primary Care - Care Coordination Referral; Future Cerebrovascular accident (CVA), unspecified mechanism (H) Following with neurology. PT, OT. - Adult Neurology Feeder Loader Referral; Future - Primary Care - Care [...] transport help right now Hospital Follow-up Visit: Hospital/Usp/IP Rehab Facility: [facility] Date of Admission: 01/22/24 Date of Discharge: [...] to non-medication therapy: None Summary of hospitalization: [facility] hospital discharge summary reviewed Diagnostic Tests/Treatments reviewed. Follow up needed: neurosurgery, neurology, PT, OT. Other Healthcare Providers Involved in Patient???s Care: Physical Therapy Update since discharge: stable. She presented for a planned catheter angiogram at [facility] for left sided pulsatile tinnitus on 01/09/24. [...] on Levetiracet am. She was admitted to [facility] between 01/16- 01/19/2024 for acute inpatient rehab [...] achieve full recovery. 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 She is having issues with her keppra. [...] Description 05/26/2024 8:30 AM CDT Office Visit [address] [address] Denise Woodson Ra, TECHNICAL SUPPORT SPECIALIST TITLE INSURANCE EXAMINER [address] [place] [place] [address] 06/08/2024 8:30 AM CDT Office Visit [facility] [place] [address] [address] [place] [phone] ChintanDenise Ra, APRN TITLE INSURANCE EXAMINER [address] [place] [address] Scheduled Referrals Name Type Priority Associated Diagnoses Orde r Schedule Adult Neurology Feeder Loader Referral Referral Urgent: 3-5 Days Fibromuscular dysplasia [...] identified. SINGH WORLEY MD Denise Woodson APRN TITLE INSURANCE EXAMINER IMG CT ORDER NASRIN documented in this [...] documented as of this encounter Care Teams Skiver Welt End Relationship Specialty Start Date End Date Shauna Winstongabino Saez OD [facility] [address] [facility] [address] [place] [address] PCP - Ophthalmology Ophthalmology 02/11/13 Denise Woodson Ra, APRN TITLE INSURANCE EXAMINER [address] [place] [address] PCP - General Family Practice 09/21/20 Denise Woodson Ra, APRN TITLE INSURANCE EXAMINER [address] [place] [address] Assigned PCP 07/17/20 Usha Simon APRN TITLE INSURANCE EXAMINER [address] [place] [address] Nurse Practitioner Neurological Surgery 01/24/24 Dangelo Salinas MD [address] [id number] Neurology 01/27/24 Usha Simon APRN TITLE INSURANCE EXAMINER [address] 297065 Assigned Neuroscience Provider 02/06/24 03/07/24 Anastasia Stearns, RN Lead Puncher 02/06/24 documented as of this encounter
--- OUTSIDE RECORDS SUMMARY | 2024-05-14 12:02 | XMS_ITS | Encounter Summary ---
Author Organization [place] Address [address] [place] [address]. [place] [address] Care Team Providers Care Coating Mixer Tender Name Role Phone Winston Villatoro OD Unavailable [phone] Denise Woodson Ra, APRN SACK SEWER MACHINE Unavailable [phone] Denise Woodson Ra, APRN SACK SEWER MACHINE Primary Care Provid er Usha Simon APRN SACK SEWER MACHINE Unavailable [phone] Dangelo Salinas MD Unavailable Encounter Details Date [...] Description 05/26/2024 8:30 AM CDT Office Visit [facility] [place] [address] [facility] [place] [phone] Denise Woodson Ra, APRN SACK SEWER MACHINE [address] [place] [address] 06/08/2024 8:30 AM CDT Office Visit [facility] [place] [address] [facility] [place] [phone] Denise Woodson Ra, APRN CNP [address] [place], [place] [address] documented as of this encounter Visit Diagnoses Not on filedocumented in this encounter Additional Health Concerns Assessment Noted Time PHQ-9 Depression Total Score: 14 024 9:33 AM CDT documented as of this encounter Care Teams Coating Mixer Tender Relationship Specialty Start Date End Date Winston Villatoro OD [facility] [place] [address] [place] [address] PCP - Ophthalmology Ophthalmology 02/11/13 Denise Woodson Ra, APRN SACK SEWER MACHINE [address] [place] [address] PCP - General Family Practice 09/21/20 Denise Woodson Ra, APRN SACK SEWER MACHINE [address] [place] [address] Assigned PCP 07/17/20 Usha Simon APRN SACK SEWER MACHINE 909 [facility] [id number] [address] Nurse Practitioner Neurological Surgery 01/24/24 Dangelo Salinas MD [address] [place] [address] Neurology 01/27/24 documented as of this encounter
--- OUTSIDE RECORDS SUMMARY | 2024-05-14 12:02 | XMS_ITS | Encounter Summary ---
Author Organization [place] Address [address] [place] [address] Care Team Providers Care Band Splitter Name Role Phone ShaunaWisnton OD Unavailable [phone] Denise Woodson Ra, APRN SOCIAL MEDIA ANALYST Unavailable [phone] Denise Woodson Ra, APRN SOCIAL MEDIA ANALYST Primary Care Provid er Usha Simno APRN SOCIAL MEDIA ANALYST Unavailable [phone] Dangelo Salinas MD Unavailable Usha Simon APRN SOCIAL MEDIA ANALYST Unavailable [phone] Anastasia Stearns RN Unavailable [phone] Encounter Details Date Type Department Care Team [...] AM CDT Office Visit [facility] [place] [address] [facility] [place] [phone] Denise Woodson Ra, BARRERA SOCIAL MEDIA ANALYST [address] [place] [address] 06/08/2024 8:30 AM CDT Office Visit [facility] [place] [address] [facility] [place] [address] Denise Woodson Ra, BARRERA SOCIAL MEDIA ANALYST [address] [place] [address] documented as of this encounter Visit Diagnoses Not on filedocumented in this encounter Additional Health Concerns Assessment Noted Time PHQ-9 Depression Total Score: 16 024 3:27 PM CDT documented as of this encounter Care Teams Band Splitter Relationship Specialty Start Date End Date Winston Villatoro OD [facility] [place] [address] [facility] [address] [place] [address] PCP - Ophthalmology Ophthalmology 02/11/13 Denise Woodson Ra, APRN SOCIAL MEDIA ANALYST [address] [place] [address] PCP - General Family Practice 09/21/20 Denise Woodson Ra, APRN CNP [address] [place] [address] Assigned PCP 07/17/20 Usha Simon APRN SOCIAL MEDIA ANALYST [address] [place], [place] [address] [address] Nurse Practitioner Neurological Surgery 01/24/24 Dangelo Salinas MD [address] [place] [address] Neurology 01/27/24 Usha Simon APRN SOCIAL MEDIA ANALYST 909 [facility]121[place] [address] Assigned Neuroscience Provider 02/06/24 03/07/24 Anastasia Stearns, RN Lead Contracts Director 02/06/24 documented as of this encounter
--- OUTSIDE RECORDS SUMMARY | 2024-05-14 12:02 | XMS_ITS | Encounter Summary ---
Author Organization [place] Address [address] [place] [address] Care Team Providers Care Geophysical Prospecting Permit Agent Name Role Phone ShaunaWinston OD Unavailable [phone] Denise Woodson Ra, APRN PERSONAL CARER Unavailable [phone] Denise Woodson Ra, APRN PERSONAL CARER Primary Care Provid er Usha Simon APRN PERSONAL CARER Unavailable [phone] Dangelo Salinas MD Unavailable Usha Simon APRN PERSONAL CARER Unavailable [phone] Anastasia Stearns RN Unavailable [phone] Encounter Details Date Type Department Care [...] Description 05/26/2024 8:30 AM CDT Office Visit [facility] [place] [address] [facility] [place] [address] Denise Woodson Ra, BARRERA PERSONAL CARER [address] [place] [address] 06/08/2024 8:30 AM CDT Office Visit [facility] [place] [address] [facility] [place] [phone] Denise Woodson Ra, BARRERA PERSONAL CARER [address] [place] [address] documented as of this encounter Visit Diagnoses Not on filedocumented in this encounter Additional Health Concerns Assessment Noted Time PHQ-9 Depression Total Score: 14 024 9:33 AM CDT documented as of this encounter Care Teams Geophysical Prospecting Permit Agent Relationship Specialty Start Date End Date Winston Villatoro OD [facility] [place] [address] [facility] [address] [place] [address] PCP - Ophthalmology Ophthalmology 02/11/13 Denise Woodson Ra, APRN PERSONAL CARER [address] [place] [address] PCP - General Family Practice 09/21/20 Denise Woodson Ra, APRN CNP [address] [place] [address] Assigned PCP 07/17/20 Usha Simon APRN PERSONAL CARER [address] [place], [place] [address] [address] Nurse Practitioner Neurological Surgery 01/24/24 Dangelo Salinas MD [address] [place] [address] Neurology 01/27/24 Usha Simon APRN PERSONAL CARER 909 [facility]121[place] [address] Assigned Neuroscience Provider 02/06/24 03/07/24 Anastasia Stearns, RN Lead High Scaler 02/06/24 documented as of this encounter
--- OUTSIDE RECORDS SUMMARY | 2024-05-14 12:02 | XMS_ITS | Encounter Summary ---
Author Organization [place] Address [address] [place] [address]. [place] [address] Care Team Providers Care Medical Language Specialist Name Role Phone Winston Villatoro OD Unavailable [phone] Denise Woodson Ra, APRN SERVER SOFTWARE ENGINEER Unavailable [phone] Denise Woodson Ra BURLAP ROLL COVERER SERVER SOFTWARE ENGINEER Primary Care Provid er Usha Simon APRN SERVER SOFTWARE ENGINEER Unavailable [phone] Dangelo Salinas MD Unavailable Usha Simon APRN SERVER SOFTWARE ENGINEER Unavailable [phone] Anastasia Stearns RN Unavailable [phone] Reason for Visit * Rehab Therapy Integrated Services (Routine) - Authorized Specialty Diagnoses / Procedures Referred By Contac t Referred To Contact Diagnoses Cerebrovascular accident (CVA), unspecified mechanism (H) [address] [address] Referral ID Status Reason Start Date Expiration Date V isits Requested Visits Authorized [id number] Authorized 09/16/2023 09/15/2024 365 365 Encounter Details Date Type Department Care Team (Latest Contact Info) Description 02/14/2024 2:00 PM CDT Therapy Visit [address] [phone] Danya You, AMAIRANI [address] [place] [address] Charis Chacon, [facility] [address] [place] [address] Cerebrovascular accident (CVA), unspecified mechanism (H) (Primary [...] Description 05/26/2024 8:30 AM CDT [facility] [address] [place] [address] Denise Woodson Ra, APRN SERVER SOFTWARE ENGINEER [address] [place] [address] 06/08/2024 8:30 AM CDT [facility] [address] [place] [address] Denise Woodson Ra, APRN SERVER SOFTWARE ENGINEER [address] [facility] [place], [place] [address] documented as of this encounter Visit Diagnoses Diagnosis Cerebrovascular accident (CVA), unspecified mechanism (H)- Primary documented in this encounter Additional Health Concerns Assessment Noted Time PHQ-9 Depression Total Score: 16 024 3:27 PM CDT documented as of this encounter Care Teams Medical Language Specialist Relationship Specialty Start Date End Date ShaunaWin[place] OD [facility] [place] [address] [place] [address] PCP - Ophthalmology Ophthalmology 02/11/13 Denise Woodson Ra, APRN SERVER SOFTWARE ENGINEER [address] [address] [facility] [address] PCP - General Family Practice 09/21/20 Denise Woodson Ra, APRN SERVER SOFTWARE ENGINEER [address] [place] [address] Assigned PCP 07/17/20 Usha Simon APRN SERVER SOFTWARE ENGINEER [address] [address] Nurse Practitioner Neurological Surgery 01/24/24 Dangelo Salinas MD [address] [place] [address] Neurology 01/27/24 Usha Simon APRN SERVER SOFTWARE ENGINEER [address] [address] Assigned Neuroscience Provider 02/06/24 03/07/24 Anastasia Stearns, RN Lead Post Splitter 02/06/24 documented as of this encounter
--- OUTSIDE RECORDS SUMMARY | 2024-05-14 12:02 | XMS_ITS | Encounter Summary ---
Author Organization [place] Address [address] [place] [address]. [place] [address] Care Team Providers Care Director Of Market Research Name Role Phone Winston Villatoro OD Unavailable [phone] Denise Woodson Ra, APRN WASHING MACHINE LOADER Unavailable + [phone] Denise Woodson Ra, APRN WASHING MACHINE LOADER Primary Care Provid er Usha Simon APRN WASHING MACHINE LOADER Unavailable + [phone] Dangelo Salinas MD Unavailable Usha Simon APRN WASHING MACHINE LOADER Unavailable + [phone] Anastasia Stearns RN Unavailable [phone] Encounter Details Date Type Department Care Team (Late st Contact Info) Description 02/14/2024 [facility] [address] [place] [address] Denise Woodson Ra, APRN WASHING MACHINE LOADER [address] [place] [address] Social History Tobacco Use Types [...] 8:30 AM CDT Office Visit [facility] [place] [address] [place] [phone] Denise Woodson Ra, BARRERA WASHING MACHINE LOADER [address] [address] [place] [address] 06/08/2024 8:30 AM CDT Office Visit [facility] [address] [place] [phone] Denise Woodson Ra, APRN WASHING MACHINE LOADER [address] [facility] [facility] [place] [address] documented as of this encounter Visit Diagnoses Not on filedocumented in this encounter Additional Health Concerns Assessment Noted Time PHQ-9 Depression Total Score: 16 024 3:27 PM CDT documented as of this encounter Care Teams Director Of Market Research Relationship Specialty Start Date End Date Winston Villatoro OD [facility] [place] [address] [place] [address] PCP - Ophthalmology Ophthalmology 02/11/13 Denise Woodson Ra, APRN WASHING MACHINE LOADER [address] [place] [address] PCP - General Family Practice 09/21/20 Denise Woodson Ra, APRN CNP [address] [facility] [place] [address] Assigned PCP 07/17/20 Usha Simon APRN WASHING MACHINE LOADER [address] [place] [address], [place] [address] Nurse Practitioner Neurological Surgery 01/24/24 Dangelo Salinas MD [address] [place] [address] Neurology 01/27/24 Usha Simon APRN WASHING MACHINE LOADER 909 [facility]2121[place] [address] Assigned Neuroscience Provider 02/06/24 03/07/24 Anastasia Stearns, RN Lead Animal Control Licensing Worker 02/06/24 documented as of this encounter
--- OUTSIDE RECORDS SUMMARY | 2024-05-14 12:03 | XMS_ITS | Encounter Summary ---
Author Organization [place] Address [address] [place] [address] Care Team Providers Care Head Miller Name Role Phone Yung Madrigal MD Unavailable Unavailable Winston Villatoro OD Unavailable [phone] Denise Woodson Ra, APRN INDUSTRIAL PRODUCTION MANAGER Unavailable [phone] Denise Woodson Ra RADARMAN INDUSTRIAL PRODUCTION MANAGER Primary Care Provid er Usha Simon RADARMAN INDUSTRIAL PRODUCTION MANAGER Unavailable [phone] Dangelo Salinas MD Unavailable Usha Simon RADARMAN INDUSTRIAL PRODUCTION MANAGER Unavailable [phone] Anastasia Stearns RN Unavailable Germaine Lopez CHW Unavailable [phone] Robin Zepeda MD Unavailable Lisa Zambrano MD Unavailable [phone] Raul Hoyos MD Unavailable Reason for Visit * Reason Comments Medication Refill Encounter Details Date Type Department Care Team (Late st Contact Info) Description 06/11/2021 Refill [facility] [address] [facility] [address] [place] [address] Denise Woodson Ra RADARMAN INDUSTRIAL PRODUCTION MANAGER [address] [place] [address] Medication Refill Social History Tobacco [...] Health [facility] [place] [address] [place] [phone] Denise Woodson Ra, RADARMAN INDUSTRIAL PRODUCTION MANAGER [address] [address] [place], [place] [address] 06/08/2024 8:30 AM CDT Office Visit [facility] [place] [address] [place] [phone] Denise Woodson Ra, RADARMAN INDUSTRIAL PRODUCTION MANAGER [address] [address] [facility], [place] [address] documented as of this encounter Visit Diagnoses Diagnosis Insomnia, unspecified type documented in this encounter Additional Health Concerns Assessment Noted Time PHQ-9 Depression Total Score: 0 01/05/20 9:31 AM CDT documented as of this encounter Care Teams Head Miller Relationship Specialty Start Date End Date Yung Madrigal MD RETIRED PCP - Orthopaedics Orthopedics 08/26/12 01/20/24 Winston Villatoro OD [facility] [place] [address] [place] [address] PCP - Ophthalmology Ophthalmology 02/11/13 Denise Woodson Ra, RADARMAN INDUSTRIAL PRODUCTION MANAGER [address] [place] [place] [id number] PCP - General Family Practice 09/21/20 Denise Woodson Ra, APRN INDUSTRIAL PRODUCTION MANAGER [address] [address] [place] [address] Assigned PCP 07/17/20 Usha Simon APRN INDUSTRIAL PRODUCTION MANAGER [address] [place] [address] Nurse Practitioner Neurological Surgery 01/24/24 Dangelo Salinas MD [address] [place] [address] Neurology 01/27/24 Usha Simon APRN INDUSTRIAL PRODUCTION MANAGER [address] [place] [address] Assigned Neuroscience Provider 02/06/24 03/07/24 Anastasia Stearns, RN Lead Back Sizer 02/06/24 Germaine [place], W Community Health Worker Primary Care - CC 02/18/24 Robin Zepeda MD [address] [place] [address] Assigned Neuroscience Provider 03/08/24 05/07/24 Lisa Zambrano MD [address] [place] [address] Assigned Heart and Vascular Provider 05/08/24 Raul Hoyos MD [address] [address] Assigned Neuroscience Provider 05/08/24 documented as of this encounter
--- OUTSIDE RECORDS SUMMARY | 2024-05-14 12:03 | XMS_ITS | Encounter Summary ---
Author Organization [place] Address [address] [place] [address] Care Team Providers Care Oracle Engineer Name Role Phone Winston Villatoro OD Unavailable [phone] Denise Woodson Ra, APRN DRIVER Unavailable + [phone] Denise Woodson Ra, APRN DRIVER Primary Care Provid er Usha Simon APRN DRIVER Unavailable + [phone] Dangelo Salinas MD Unavailable Reason for Visit * Reason Comments New Patient * Consultation (Routine: Next available opening) - Pending Review Specialty Diagnoses / Procedures Referred By Nila shah Referred To Contact Neurological Surgery Diagnoses Dural arteriovenous fistula Jeevan Sheth MD [address] [place] [address] Referral ID Status Reason Start Date Expiration Date V isits Requested Visits Authorized [id number] Pending Review 01/23/2024 01/22/2025 1 1 Encounter Details Date Type Department Care Team (Latest Contact Info) Description 01/31/2024 9:30 AM CDT Office Visit [facility] [address] [place] [address] Jeevan Sheth MD [address] [place] [address] Usha Simon APRN [address], [place] [address] Dural arteriovenous fistula Social History Tobacco Use [...] encounter Progress Notes * Usha Simon APRN DRIVER - 01/31/2024 9:30 AM CDT Images from the original note were not included. [facility] Department of Neurosurgery Name: Alcon Zamora Age: [...] started on Levetiracetam. She was admitted to [facility] between 01/16- 01/19/2024 for acute inpatient rehab [...] Past Surgical History: Procedure Laterality Date C FRICTION PAINT MACHINE TENDER PROCEDURE DATE: vag del. C FRICTION PAINT MACHINE TENDER PROCEDURE DATE: 2000 tubal ligation C FRICTION PAINT MACHINE TENDER PROCEDURE DATE: 1994 D&C CARDIAC SURGERY 06/2006 heart defect repair ESOPHAGOSCOPY, GASTROSCOPY, DUODENOSCOPY (EGD), COMBINED N/A 02/08/2021 Procedure: ESOPHAGOGASTRODUODENOSCOPY (EGD); Surgeon: Tuan Miller MD; Location: GI GI SURGERY 09/2020 gallbladder removed HC KNEE SCOPE,MED/LAT MENISECTOMY 08/04/13 LT HEART CATH, CLOSURE ATRIAL SEPTAL DEFECT 06/20/06 amplatzer septal occluder- serial #[id number] RW FRICTION PAINT MACHINE TENDER (ABSTRACTED) pneumonia several times SURGICAL PATHOLOGY EXAM [...] Sensation intact throughout. Mild dysmetria with right gnlukq-gtcd-bnilal testing. Gait: Walks slowly with slightly wide [...] discuss treatment options. Message sent to clinical documentation developer. Usha Simon CNP Department of Neurosurgery I [...] 8:30 AM CDT Office Visit [facility] [place] [address] [facility] [place] [address] Denise Woodson Ra, BARRERA DRIVER [address] [place] [place] [id number] 06/08/2024 8:30 AM CDT Office Visit [facility] [place] [address] [facility] [place] [address] Denise Woodson Ra, BARRERA DRIVER [address] [place], [place] [id number] documented as of this encounter Visit Diagnoses Diagnosis Dural arteriovenous fistula Cerebral aneurysm, nonruptured documented in this encounter Additional Health Concerns Assessment Noted Time PHQ-9 Depression Total Score: 0 06/23/20 21 4:11 PM CDT documented as of this encounter Care Teams Oracle Engineer Relationship Specialty Start Date End Date Winston Villatoro, [facility] [place] [address] [place] [address] PCP - Ophthalmology Ophthalmology 02/11/13 Denise Woodson Ra, APRN DRIVER [address] [address] [place] [address] PCP - General Family Practice 09/21/20 Denise Woodson Ra, APRN DRIVER [address] [place] [place] [address] Assigned PCP 07/17/20 Usha Simon APRN DRIVER 9 [facility]121[place], [place] [address] Nurse Practitioner Neurological Surgery 01/24/24 Dangelo Salinas MD [address] [place] [address] Neurology 01/27/24 documented as of this encounter
--- OUTSIDE RECORDS SUMMARY | 2024-05-14 12:03 | XMS_ITS | Encounter Summary ---
Author Organization [place] Address [address] [place] [address]. [place] [address] Care Team Providers Care Support Team Assoc Name Role Phone ShaunaWinston OD Unavailable [phone] Denise Woodson Ra, APRN ROUGE MIXER Unavailable + [phone] Denise Woodson Ra EMBROIDERER ROUGE MIXER Primary Care Provid er Usha Simon APRN ROUGE MIXER Unavailable +- [phone] Dangelo Salinas MD Unavailable Encounter Details Date [...] AM CDT Office Visit [facility] [address] [place] [phone] Denise Woodson Ra, EMBROIDERER ROUGE MIXER [address] [place] [address] 06/08/2024 8:30 AM CDT Office Visit [facility] [place] [address] [address] [place] [phone] Denise Woodson Ra, BARRERA ROUGE MIXER [address] [place] [place] [address] documented as of this encounter Visit Diagnoses Not on filedocumented in this encounter Additional Health Concerns Assessment Noted Time PHQ-9 Depression Total Score: 15 024 10:47 AM CDT documented as of this encounter Care Teams Support Team Assoc Relationship Specialty Start Date End Date Winston Villatoro, AMELIE [facility] [place] [address] [place] [address] PCP - Ophthalmology Ophthalmology 02/11/13 Denise Woodson Ra, BARRERA ROUGE MIXER [address] [place] [address] PCP - General Family Practice 09/21/20 Denise Woodson Ra, APRN ROUGE MIXER [address] [place] [address] Assigned PCP 07/17/20 Usha Simon APRN ROUGE MIXER 909 [facility] [id number] [address] Nurse Practitioner Neurological Surgery 01/24/24 Dangelo Salinas MD [address] [place] [address] Neurology 01/27/24 documented as of this encounter
--- OUTSIDE RECORDS SUMMARY | 2024-05-14 12:03 | XMS_ITS | Encounter Summary ---
Author Organization [place] Address [address] [place] [address]. [place] [address] Care Team Providers Care Cryolite Recovery Operator Name Role Phone Yung Madrigal MD Unavailable Unavailable Winston Villatoro OD Unavailable [phone] Denise Woodson Ra, APRN UNDERBASTER Unavailable +- [phone] Denise Woodson Ra CERAMIC PLATER UNDERBASTER Primary Care Provid er Usha Simon CERAMIC PLATER UNDERBASTER Unavailable [phone] Dangelo Salinas MD Unavailable Usha Simon APRN UNDERBASTER Unavailable +- [phone] Anastasia Stearns RN Unavailable [phone] Germaine Lopez CHW Unavailable +[phone] Robin Zepeda MD Unavailable Lisa Zambrano MD Unavailable +- [phone] Raul Hoyos MD Unavailable Reason for Visit * Reason Onset Date Comments MyChart Communication 06/08/2021 Abdominal pain Encounter Details Date Type Department Care Team (Late st Contact Info) Description 06/08/2021 [facility] [address] [place] [phone] Denise Woodson Ra CERAMIC PLATER UNDERBASTER [address] [place] [address] MyChart Communication (Abdominal pain) Social [...] Description 05/26/2024 8:30 AM CDT Office Visit [facility] [place] [address] [place] [phone] Denise Woodson Ra, CERAMIC PLATER UNDERBASTER [address] [address] [facility] [id number] 06/08/2024 8:30 AM CDT Office Visit [facility] [place] [address] [facility] [place] [phone] Denise Woodson Ra, CERAMIC PLATER UNDERBASTER [address] [facility] [place], [place] [id number] documented as of this encounter Visit Diagnoses Not on filedocumented in this encounter Additional Health Concerns Assessment Noted Time PHQ-9 Depression Total Score: 0 01/05/20 9:31 AM CDT documented as of this encounter Care Teams Cryolite Recovery Operator Relationship Specialty Start Date End Date Yung Madrigal MD RETIRED PCP - Orthopaedics Orthopedics 08/26/12 01/20/24 Winston Villatoro OD [facility] [place] [address] [place] [address] PCP - Ophthalmology Ophthalmology 02/11/13 Denise Woodson Ra, CERAMIC PLATER UNDERBASTER [address] [place] [address] PCP - General Family Practice 09/21/20 Denise Woodson Ra, APRN UNDERBASTER [address] [place] [address] Assigned PCP 07/17/20 Usha Simon APRN UNDERBASTER [address] 8[address] Nurse Practitioner Neurological Surgery 01/24/24 Dangelo Salinas MD [address] [place] [address] Neurology 01/27/24 Usha Simon APRN UNDERBASTER [address] 441855 Assigned Neuroscience Provider 02/06/24 03/07/24 Anastasia Stearns, RN Lead Linux Solaris Administrator 02/06/24 Germaine Lopez, W Community Health Worker Primary Care - CC 02/18/24 Robin Zepeda MD [address] 9[address] Assigned Neuroscience Provider 03/08/24 05/07/24 Lisa Zambrano MD [address] [place] [address] Assigned Heart and Vascular Provider 05/08/24 Raul Hoyos MD 909 [facility] [id number] [address] Assigned Neuroscience Provider 05/08/24 documented as of this encounter
--- OUTSIDE RECORDS SUMMARY | 2024-05-14 12:03 | XMS_ITS | Encounter Summary ---
Author Organization [place] Address [address] [place] [address] Care Team Providers Care Cream Ripener Name Role Phone Yung Madrigal MD Unavailable Unavailable Winston Villatoro OD Unavailable [phone] Denise Woodson Ra, APRN RESTORATION TECHNICIAN Unavailable [phone] Denise Woodson Ra OUTDOOR STUDIES PROFESSOR RESTORATION TECHNICIAN Primary Care Provid er Usha Simon APRN RESTORATION TECHNICIAN Unavailable [phone] Dangelo Salinas MD Unavailable Usha Simon APRN RESTORATION TECHNICIAN Unavailable +- [phone] Anastasia Stearns RN Unavailable Germaine Lopez CHW Unavailable +[phone] Robin Zepeda MD Unavailable [phone] Lisa Zambrano MD Unavailable +- [phone] Raul Hoyos MD Unavailable [phone] Reason for Visit * Reason Comments Medication Refill Encounter Details Date Type Department Care Team (Late st Contact Info) Description 01/07/2023 [facility] [address] [place] [address] Denise Woodson Ra, APRN RESTORATION TECHNICIAN [address] [place] [address] Medication Refill Social History Tobacco [...] Letter as final attempt to schedule. Karla [place] Complex Care Nurse * Telephone Encounter - Karla Morales - 01/17/2023 8:59 AM CDT LVM requesting a call back for an appt (physical). One more attempt will be made. Karla Gross Complex Care Nurse * Telephone Encounter - Arianna Lo - 01/10/2023 3:33 PM CDT Sent [employer] message requesting a call back for an appt. Two more attempts will be made. Arianna [place] Complex Care Nurse * Telephone Encounter - Leslie Mcclellan RN [...] 0 0 0 Leslie Mcclellan RN, BSN [facility] documented in this encounter Plan of Treatment Upcoming Encounters Date Type Department Care Team (Late st Contact Info) Description 05/26/2024 8:30 AM CDT Office Visit [facility] [address] [place] [address] Denise Woodson Ra, BARRERA RESTORATION TECHNICIAN [address] [facility] [place] 8398368 06/08/2024 8:30 AM CDT Office Visit [facility] [address] [facility] [address] Denise Woodson Ra, BARRERA RESTORATION TECHNICIAN [address] [facility], [place] [id number] documented as of this encounter Visit Diagnoses Diagnosis Moderate persistent asthma without complication Unspecified asthma documented in this encounter Additional Health Concerns Assessment Noted Time PHQ-9 Depression Total Score: 0 06/23/20 21 4:11 PM CDT documented as of this encounter Care Teams Cream Ripener Relationship Specialty Start Date End Date Yung Madrigal MD RETIRED PCP - Orthopaedics Orthopedics 08/26/12 01/20/24 Winston Villatoro OD [facility] [place] [address] [place] [address] PCP - Ophthalmology Ophthalmology 02/11/13 Denise Woodson Ra, APRN CNP [address] [place] [address] PCP - General Family Practice 09/21/20 Denise Woodson Ra, APRN RESTORATION TECHNICIAN [address] [place] [address] Assigned PCP 07/17/20 Usha Simon APRN RESTORATION TECHNICIAN [address] [address] Nurse Practitioner Neurological Surgery 01/24/24 Dangelo Salinas MD [address] [place] [address] Neurology 01/27/24 Usha Simon APRN RESTORATION TECHNICIAN [address] [address] Assigned Neuroscience Provider 02/06/24 03/07/24 Anastasia Stearns, RN Lead Yard Engineer 02/06/24 Germaine Lopez, W Community Health Worker Primary Care - CC 02/18/24 Robin Zepeda MD [address] [address] Assigned Neuroscience Provider 03/08/24 05/07/24 Lisa Zambrano MD [address] [place] [address] Assigned Heart and Vascular Provider 05/08/24 Raul Hoyos MD [address] 522925 Assigned Neuroscience Provider 05/08/24 documented as of this encounter
--- OUTSIDE RECORDS SUMMARY | 2024-05-14 12:03 | XMS_ITS | Encounter Summary ---
Author Organization [place] Address [address] [place] [address] Care Team Providers Care Coach Mechanic Name Role Phone Winston Villatoro OD Unavailable [phone] Denise Woodson Ra, APRN BATH ATTENDANT Unavailable + [phone] Denise Woodson Ra DRYING EQUIPMENT OPERATOR BATH ATTENDANT Primary Care Provid er Usha Simon APRN BATH ATTENDANT Unavailable + [phone] Dangelo Salinas MD Unavailable Usha Simon APRN BATH ATTENDANT Unavailable +- [phone] Anastasia Stearns RN Unavailable +-[phone] Reason for Referral * Mental Health Outpatient (Urgent: 3-5 Days) - Pending Review Specialty Diagnoses / Procedures Referred By Contac t Referred To Contact Behavioral Health Diagnoses History of seizure Cerebrovascular accident (CVA), unspecified mechanism (H) Depression, unspecified depression type Raul Hoyos MD [address] [place] [address] [id number] [place] [address] Referral ID Status Reason Start Date Expiration Date V isits Requested Visits Authorized [id number] Pending Review 02/04/2024 02/03/2025 1 1 Question Answer Services: Assess/Evaluate for appropriate service (non-medication assessment) My Clinical Question Is: Patient scored high on PHQ-9 Scheduling Instructions: [facility] will call you to coordinate your care as prescribed by your provider. If you don't hear from a customer sales representative within 2 business days, please [...] plan with any benefit or coverage questions. [facility] will call you to coordinate your care as prescribed by your provider. If you don't hear from a customer sales representative within 2 business days, please call . Reason for Visit * Reason Comments Consult * Consultation (Routine: Next available opening) - Pending Review Specialty Diagnoses / Procedures Referred By Contac t Referred To Contact Diagnoses Seizure-like activity (H) History of seizure Cerebrovascular accident (CVA), unspecified mechanism (H) Delisa Manuel MD [address] [place] [address] Referral ID Status Reason Start Date Expiration Date V isits Requested Visits Authorized [id number] Pending Review 01/22/2024 01/21/2025 1 1 Encounter Details Date Type Department Care Team ([facility] Contact Info) Description 02/04/2024 11:00 AM CDT Virtual Visit [facility] Neurology [facility] [address] [place] [address] Raul Hoyos MD [address] [place] [address] [id number] [place] [address] Depression, unspecified depression type (Primary Dx); Seizure-like [...] 11:00 AM CDT Patient will go to [facility] Stroke & Endovascular RN Care Coordinators: Stacey Kelley RN, BSN Meche De La Cruz RN, CNRN, SCRN If you have any questions please contact the RN Care Coordinators at [phone], option 1. Thank you for choosing [facility] for your health care needs. documented in this encounter Progress Notes * Raul Hoyos MD - 02/04/2024 11:00 AM CDT Virtual Visit Details Type of service: Video Visit Originating Location (pt. Location): Home Distant Location (provider location): Off-site Platform used for Video Visit: AmAbran * Raul Hoyos MD - 02/04/2024 11:00 AM CDT [facility] [address] [facility] [address] February 04, 2024 Alcon Zamora [address] [facility] [address] VIDEO VISIT and Documentation and coordination = [...] ER - s he will come to [facility] and this note is for care coordination. Will be addended further later. ADDENDUM Placed mental health corporate executive referral as well due to high PHQ-9. [...] patient encounters technical issues they should call [phone] :[phone]) How would you like to obtain [...] with Dr. Hoyos - sending patient to [facility] ED with new stoke symptoms ongoing since Saturday - difficulty walking, worsened coordination and balance. Enitre left side numbness/altered sensation on left. Patients friend will transport patient. Called ED assistant chief train dispatcherMarii, and informed of above. Meche De La Cruz RN 02/04/2024 11:43 AM documented in this encounter Plan of Treatment Upcoming Encounters Date Type Department Care Team (Late st Contact Info) Description 05/26/2024 8:30 AM CDT Office Visit [facility] [address] [facility] [place] [phone] Denise Woodson Ra, APRN BATH ATTENDANT [address] [address] [place] [address] 06/08/2024 8:30 AM CDT Office Visit [facility] [place] [address] [facility] [place] [phone] Denise Woodson Ra, BARRERA BATH ATTENDANT [address] [address] [address] Scheduled Referrals Name Type Priority Associated Diagnoses Orde r Schedule Adult Mental Health Fixture Designer Referral Referral Urgent: 3-5 Days History of [...] documented as of this encounter Care Teams Coach Mechanic Relationship Specialty Start Date End Date Winston Villatoro, OD [facility] [address] [facility] [address] [place] [address] PCP - Ophthalmology Ophthalmology 02/11/13 Denise Woodson Ra, APRN BATH ATTENDANT [address] [address] [place] [address] PCP - General Family Practice 09/21/20 Denise Woodson Ra, APRN CNP [address] [address] [place] [address] Assigned PCP 07/17/20 Usha Simon APRN BATH ATTENDANT 909 [facility]121[place] [address] Nurse Practitioner Neurological Surgery 01/24/24 Dangelo Salinas MD [address] [place] [address] Neurology 01/27/24 Usha Simon APRN BATH ATTENDANT [address] [place] [address] [address] Assigned Neuroscience Provider 02/06/24 03/07/24 Anastasia Stearns, RN Lead Industrial Education Instructor 02/06/24 documented as of this encounter
--- OUTSIDE RECORDS SUMMARY | 2024-05-14 12:03 | XMS_ITS | Encounter Summary ---
Author Organization [place] Address [address] [place] [address] Care Team Providers Care Skin Former Name Role Phone Winston Villatoro OD Unavailable [phone] Denise Woodson Ra, APRN CAROUSEL ATTENDANT Unavailable + [phone] Denise Woodson Ra MOTION PICTURE CRITIC CAROUSEL ATTENDANT Primary Care Provid er Usha Simon APRN CAROUSEL ATTENDANT Unavailable Dangelo Salinas MD Unavailable Usha Simon APRN CAROUSEL ATTENDANT Unavailable Anastasia Stearns RN Unavailable Germaine Lopez CHW Unavailable [phone] Robin Zepeda MD Unavailable [phone] Lisa Zambrano MD Unavailable + [phone] Raul Hoyos MD Unavailable Reason for Visit * Reason Onset Date Comments Appointment 01/23/2024 Referral-Stroke hospital follow up Encounter Details Date Type Department Care Team (Late st Contact Info) Description 01/23/2024 [facility] Neurology Clinic [address] 3rd [place] [address] None Appointment (Referral-Stroke hospital follow [...] Nani Bassett - 01/23/2024 1:33 PM CDT [facility] Call Center Phone Message May a detailed message be left on voicemail: yes Reason for Call: Appointment Intake Referring Provider Name: Dr. Delisa Manuel Ur 5 Med Surg Diagnosis and/or Symptoms: Stroke Please review referral for Stroke as no HFU orders are entered for Stroke follow up. Patient discharged on 01/22/24 from [facility] and is now in Acute Rehab Unit. Action Taken: Message routed to: [facility] Neurology Travel Screening: Not Applicable documented in this encounter Plan of Treatment Upcoming Encounters Date Type Department Care Team (Late st Contact Info) Description 05/26/2024 8:30 AM CDT [facility] [address] [place] [phone] Denise Woodson Ra, BARRERA CAROUSEL ATTENDANT [address] [place] [address] 06/08/2024 8:30 AM CDT Office Visit [facility] [place] [address] [place] [address] Denise Woodson Ra, APRN CAROUSEL ATTENDANT [address] [place], [place] [phone] documented as of this encounter Visit Diagnoses Not on filedocumented in this encounter Additional Health Concerns Assessment Noted Time PHQ-9 Depression Total Score: 0 06/23/20 21 4:11 PM CDT documented as of this encounter Care Teams Skin Former Relationship Specialty Start Date End Date Winston Villatoro OD [facility] [place] [address] [place] [address] PCP - Ophthalmology Ophthalmology 02/11/13 Denise Woodson Ra MOTION PICTURE CRITIC CAROUSEL ATTENDANT [address] [place] [address] PCP - General Family Practice 09/21/20 Denise Woodson Ra MOTION PICTURE CRITIC CAROUSEL ATTENDANT [address] [address] [facility] [place] [address] Assigned PCP 07/17/20 Usha Simon APRN CAROUSEL ATTENDANT [address] [place] [address] Nurse Practitioner Neurological Surgery 01/24/24 Dangelo Salinas MD [address] [place], [place] [address] Neurology 01/27/24 Usha Simon APRN CAROUSEL ATTENDANT [address] [address] Assigned Neuroscience Provider 02/06/24 03/07/24 Anastasia Stearns, RN Lead Accountant Bookkeeper 02/06/24 Germaine Lopez, CHW Community Health Worker Primary Care - CC 02/18/24 Robin Zepeda MD [address] [address] Assigned Neuroscience Provider 03/08/24 05/07/24 Lisa Zambrano MD 6405 [facility] [address] [place] [address] [place] 625865 Assigned Heart and Vascular Provider 05/08/24 Raul Hoyos MD 9 [facility]121[place], [place] 795205 Assigned Neuroscience Provider 05/08/24 documented as of this encounter
--- OUTSIDE RECORDS SUMMARY | 2024-05-14 12:03 | XMS_ITS | Encounter Summary ---
Author Organization [facility] Address [address] [place] [address] Care Team Providers Care Cabin Cleaning Supervisor Name Role Phone Winston Villatoro OD Unavailable [phone] Denise Woodson Ra, APRN WOOD PATTERN MAKER Unavailable + [phone] Denise Woodson Ra, APRN WOOD PATTERN MAKER Primary Care Provid er Usha Simon APRN WOOD PATTERN MAKER Unavailable + [phone] Dangelo Salinas MD Unavailable Reason for Visit * Reason Onset Date Comments *-*INCOMING RECORDS*-* 02/04/2024 Encounter Details Date Type Department Care Team (Late st Contact Info) Description 02/04/2024 PRE VISIT [facility] [address] [place] [address] Raul Hoyos MD [address] [place], [place] [address], [place] [address] *-*INCOMING RECORDS*-* Social History Tobacco Use Types [...] Action Taken 1) Imaging request emailed to [facility] 2) Request faxed to [facility] records and imaging reports. Images already in PACS Action 01/30/24 MV 10.10am Action Taken Recs received from [facility] and sent to scanning ; still need [place] images Action 01/31/24 MV 8am Action Taken Images resolved in PACS RECORDS RECEIVED FROM: internal REASON FOR VISIT: Cerebrovascular accident (CVA) PROVIDER: Dr. Hoyos DATE OF APPT: 02/04/24 NOTES (FOR ALL VISITS) STATUS DETAILS OFFICE NOTE from referring provider Internal SEE INPATIENT NOTES OFFICE NOTE from other specialist Care Everywhere Dr Bette Mantilla @ [facility] Neurosurgery: 01/15/24 01/14/24 Dr Roshni Molina @ [facility] Neurosurgery: 01/14/24 DISCHARGE SUMMARY from hospital Internal/Received [facility]: 01/22/24-01/26/24 01/19/24-01/22/24 [facility]: 01/04/24-01/14/24 [place]: 09/30/22-10/02/22 DISCHARGE REPORT from the ER Care Everywhere [facility] [facility]: 09/28/22 09/27/22 09/25/22 MEDICATION LIST Internal IMAGING (FOR ALL VISITS) ULTRASOUND (CAROTID BILAT) *VASCULAR* PACS [facility]: IR Angio Carotid 01/09/24 MRI (HEAD, NECK, SPINE) PACS [facility]: MRA Neck Carotid 01/20/24 MRI Brain 01/20/24 MRA Brain COW 01/20/24 [facility]: MRI Brain 01/13/24 [facility]: MRI Brain 09/28/22 MRI Brain 06/30/14 CT (HEAD, NECK, SPINE) PACS [facility]: CT Head 01/19/24 [facility]: CT Head 01/14/24 CTA Neck 01/13/24 CT Head 01/07/24 CTA Neck 01/04/24 CT Head 01/04/24 [facility]: CTA Head Neck Carotid 01/09/24 [facility]: CTA Head Neck 09/27/22 CT Head 09/25/22 CT Head 06/29/14 documented in this encounter Plan of Treatment Upcoming Encounters Date Type Department Care Team (Late st Contact Info) Description 05/26/2024 8:30 AM CDT Office Visit [facility] [place] [address] [facility] [place] [address] Denise Woodson Ra, APRN WOOD PATTERN MAKER [address] [address] [facility] [address] 06/08/2024 8:30 AM CDT Office Visit [facility] [place] [address] [facility] [place] [address] Denise Woodson Ra, APRN CNP [address] [place], [place] [address] documented as of this encounter Visit Diagnoses Not on filedocumented in this encounter Additional Health Concerns Assessment Noted Time PHQ-9 Depression Total Score: 15 024 10:47 AM CDT documented as of this encounter Care Teams Cabin Cleaning Supervisor Relationship Specialty Start Date End Date Winston Villatoro OD [facility] [address] [facility] [address] [place] [address] PCP - Ophthalmology Ophthalmology 02/11/13 Denise Woodson Ra, APRN WOOD PATTERN MAKER [address] [place] [address] PCP - General Family Practice 09/21/20 Denise Woodson Ra, APRN WOOD PATTERN MAKER [address] [place] [address] Assigned PCP 07/17/20 Usha Simon APRN WOOD PATTERN MAKER [address] [place], [place] [address] [address] Nurse Practitioner Neurological Surgery 01/24/24 Dangelo Salinas MD [address] [place] [address] Neurology 01/27/24 documented as of this encounter
--- OUTSIDE RECORDS SUMMARY | 2024-05-14 12:03 | XMS_ITS | Encounter Summary ---
Author Organization [place] Address [address] [place] [address] Care Team Providers Care Prosecuting Attorney Name Role Phone Yung Madrigal MD Unavailable Unavailable Winston Villatoro OD Unavailable [phone] Denise Woodson Ra, APRN BATTERY BUILDER Unavailable [phone] Denise Woodson Ra MANAGER NURSING HOME BATTERY BUILDER Primary Care Provid er Usha Simon MANAGER NURSING HOME BATTERY BUILDER Unavailable [phone] Dangelo Salinas MD Unavailable Usha Simon MANAGER NURSING HOME BATTERY BUILDER Unavailable [phone] Anastasia Stearns RN Unavailable [phone] Germaine Lopez CHW Unavailable [phone] Robin Zepeda MD Unavailable Lisa Zambrano MD Unavailable [phone]- [phone] Raul Hoyos MD Unavailable [phone] Encounter Details Date Type Department Care Team (Late st Contact Info) Description 06/13/2021 [facility] [address] [place] [address] Denise Woodson Ra, APRN BATTERY BUILDER [address] [place] [address] Insomnia, unspecified type Social History [...] a refill on file. Prescription approved per [facility] protocol. Mary Caraballo RN on 06/13/2021 at 5:18 PM documented in this encounter Plan of Treatment Upcoming Encounters Date Type Department Care Team (Late st Contact Info) Description 05/26/2024 8:30 AM CDT [facility] [address] [place] [address] Denise Woodson Ra, BARRERA BATTERY BUILDER [address] [place], [place] [address] 06/08/2024 8:30 AM CDT Office Visit [facility] [address] [place] [phone] Denise Woodson Ra, BARRERA BATTERY BUILDER [address] [place] [address] documented as of this encounter Visit Diagnoses Diagnosis Insomnia, unspecified type documented in this encounter Additional Health Concerns Assessment Noted Time PHQ-9 Depression Total Score: 0 01/05/20 9:31 AM CDT documented as of this encounter Care Teams Prosecuting Attorney Relationship Specialty Start Date End Date Yung Madrigal MD RETIRED PCP - Orthopaedics Orthopedics 08/26/12 01/20/24 Winston Villatoro OD [facility] [place] [address] [place] [address] PCP - Ophthalmology Ophthalmology 02/11/13 Denise Woodson Ra, MANAGER NURSING HOME BATTERY BUILDER [address] [place] [address] PCP - General Family Practice 09/21/20 Denise Woodson Ra, MANAGER NURSING HOME BATTERY BUILDER [address] [place] [address] Assigned PCP 07/17/20 Usha Simon APRN BATTERY BUILDER [address] [place] [address] Nurse Practitioner Neurological Surgery 01/24/24 Dangelo Salinas MD [address] [place], [place] [id number] Neurology 01/27/24 Usha Simon APRN BATTERY BUILDER [address] [place] [address] Assigned Neuroscience Provider 02/06/24 03/07/24 Anastasia Stearns, RN Lead Corner Block Cutter 02/06/24 Germaine Lopez, W Community Health Worker Primary Care - CC 02/18/24 Robin Zepeda MD [address] [address] Assigned Neuroscience Provider 03/08/24 05/07/24 Lisa Zambrano MD [address] [place] [address] [place] 1929[address] Assigned Heart and Vascular Provider 05/08/24 Raul Hoyos MD [address] [facility] [address] Assigned Neuroscience Provider 05/08/24 documented as of this encounter
--- OUTSIDE RECORDS SUMMARY | 2024-05-14 12:03 | XMS_ITS | Encounter Summary ---
Author Organization [facility] Address [address] [place] [address] Care Team Providers Care Senior Mainframe Programmer Analyst Name Role Phone ShaunaWinston moralze OD Unavailable [phone] Denise Woodson Ra, APRN HOME RESTORATION SERVICE CLEANER Unavailable + [phone] Denise Woodson Ra FIRE CONTROL TECHNICIAN HOME RESTORATION SERVICE CLEANER Primary Care Provid er Usha Simon APRN HOME RESTORATION SERVICE CLEANER Unavailable Dangelo Salinas MD Unavailable Usha Simon APRN HOME RESTORATION SERVICE CLEANER Unavailable [phone] Anastasia Stearns RN Unavailable [phone] Germaine Lopez CHW Unavailable Robin Zepeda MD Unavailable [phone] Lisa Zambrano MD Unavailable Raul Hoyos MD Unavailable Encounter Details Date Type Department Care Team (Late st Contact Info) Description 01/27/2024 [facility] [address] [place] [address] Phoebe Del Cid Social History [...] CDT Office Visit [facility] [place] [address] [facility] [phone] Denise Woodson Ra, BARRERA HOME RESTORATION SERVICE CLEANER [address] [place] [address] 06/08/2024 8:30 AM CDT Office Visit [facility] [place] [address] [address] [address] Denise Woodson Ra, BARRERA HOME RESTORATION SERVICE CLEANER [address] [place] [address] documented as of this encounter Visit Diagnoses Not on filedocumented in this encounter Additional Health Concerns Assessment Noted Time PHQ-9 Depression Total Score: 0 06/23/20 21 4:11 PM CDT documented as of this encounter Care Teams Senior Mainframe Programmer Analyst Relationship Specialty Start Date End Date Winston Villatoro Se, OD [facility] [place] [address] [place] [address] PCP - Ophthalmology Ophthalmology 02/11/13 Denise Woodson Ra, APRN HOME RESTORATION SERVICE CLEANER [address] [place] [address] PCP - General Family Practice 09/21/20 Denise Woodson Ra, APRN CNP [address] [place] [address] Assigned PCP 07/17/20 Usha Simon APRN HOME RESTORATION SERVICE CLEANER [address] [address] Nurse Practitioner Neurological Surgery 01/24/24 Dangelo Salinas MD [address] [place] [address] Neurology 01/27/24 Usha Simon APRN HOME RESTORATION SERVICE CLEANER [address] [address] Assigned Neuroscience Provider 02/06/24 03/07/24 Anastasia Stearns, RN Lead Clinical Secretary 02/06/24 Germaine Lopez, [facility] Community Health Worker Primary Care - CC 02/18/24 Robin Zepeda MD [address] [address] Assigned Neuroscience Provider 03/08/24 05/07/24 Lisa Zambrano MD [address] [place] [address] Assigned Heart and Vascular Provider 05/08/24 Raul Hoyos MD [address] 396555 Assigned Neuroscience Provider 05/08/24 documented as of this encounter
--- OUTSIDE RECORDS SUMMARY | 2024-05-14 12:03 | XMS_ITS | Encounter Summary ---
Author Organization [facility] Address [address] [place] [address]. [place] [address] Care Team Providers Care Oral And Maxillofacial Surgery Name Role Phone Winston Villatoro OD Unavailable [phone] Denise Woodson Ra, APRN SUPERVISOR NATURAL GAS PLANT Unavailable Denise Woodson Ra SENIOR QUALITY TECHNICIAN SUPERVISOR NATURAL GAS PLANT Primary Care Provid er Usha Simon APRN SUPERVISOR NATURAL GAS PLANT Unavailable + [phone] Dangelo Salinas MD Unavailable Encounter Details Date Type Department Care Team (Late st Contact Info) Description 02/03/2024 [facility] [address] [place] [address] Denise Woodson Ra, APRN SUPERVISOR NATURAL GAS PLANT [address] [place] [address] Social History Tobacco Use Types [...] AM CDT Office Visit [facility] [place] [address] [place] [address] Denise Woodson Ra, BARRERA SUPERVISOR NATURAL GAS PLANT [address] [place] [address] 06/08/2024 8:30 AM CDT Office Visit [facility] [place] [address] [facility] [place] [address] Denise Woodson Ra, BARRERA SUPERVISOR NATURAL GAS PLANT [address] [place], [place] [address] documented as of this encounter Visit Diagnoses Not on filedocumented in this encounter Additional Health Concerns Assessment Noted Time PHQ-9 Depression Total Score: 0 06/23/20 21 4:11 PM CDT documented as of this encounter Care Teams Oral And Maxillofacial Surgery Relationship Specialty Start Date End Date Winston Villatoro OD [facility] [place] [address] [place] [address] PCP - Ophthalmology Ophthalmology 02/11/13 Denise Woodson Ra, APRN SUPERVISOR NATURAL GAS PLANT [address] [place] [address] PCP - General Family Practice 09/21/20 Denise Woodson Ra, APRN SUPERVISOR NATURAL GAS PLANT [address] [place] [address] Assigned PCP 07/17/20 Usha Simon APRN SUPERVISOR NATURAL GAS PLANT [address] [facility] [address] Nurse Practitioner Neurological Surgery 01/24/24 Dangelo Salinas MD [address] [facility] [address] [place] [address] Neurology 01/27/24 documented as of this encounter
--- OUTSIDE RECORDS SUMMARY | 2024-05-14 12:03 | XMS_ITS | Encounter Summary ---
Author Organization [place] Address [address] [place] [address] Care Team Providers Care Family Practice Medical Doctor Name Role Phone Winston Villatoro OD Unavailable [phone] Denise Woodson Ra, APRN JACQUARD CARD LACER Unavailable + [phone] Denise Woodson Ra SPECIAL AGENT IN CHARGE JACQUARD CARD LACER Primary Care Provid er Usha Simon APRN JACQUARD CARD LACER Unavailable Dangelo Salinas MD Unavailable Usha Simon APRN JACQUARD CARD LACER Unavailable [phone] Anastasia Stearns RN Unavailable [phone] Germaine Lopez CHW Unavailable Robin Zepeda MD Unavailable Lisa Zambrano MD Unavailable Raul Hoyos MD Unavailable Encounter Details Date Type Department Care Team (Late st Contact Info) Description 01/29/2024 [facility] [address] [address] Danya Restrepo, SUBASSEMBLIES WIRER Social History Tobacco Use Types Packs/Day Years [...] Description 05/26/2024 8:30 AM CDT Office Visit [facility] [place] [address] [facility] [place] [address] Denise Woodson Ra, SPECIAL AGENT IN CHARGE JACQUARD CARD LACER [address] [place] [address] 06/08/2024 8:30 AM CDT Office Visit [facility] [place] [address] [facility] [place] [place] [address] Denise Woodson Ra, BARRERA JACQUARD CARD LACER [address] [place] [address] documented as of this encounter Visit Diagnoses Not on filedocumented in this encounter Additional Health Concerns Assessment Noted Time PHQ-9 Depression Total Score: 0 06/23/20 21 4:11 PM CDT documented as of this encounter Care Teams Family Practice Medical Doctor Relationship Specialty Start Date End Date Winston Villatoro Se, OD [facility] [place] [address] [place] [address] PCP - Ophthalmology Ophthalmology 02/11/13 Denise Woodson Ra, APRN JACQUARD CARD LACER [address] [place] [address] PCP - General Family Practice 09/21/20 Denise Woodson Ra, APRN CNP [address] [place] [address] Assigned PCP 07/17/20 Usha Simon APRN JACQUARD CARD LACER [address] [address] Nurse Practitioner Neurological Surgery 01/24/24 Dangelo Salinas MD [address] [place] [address] Neurology 01/27/24 Usha Simon APRN JACQUARD CARD LACER [address] [address] Assigned Neuroscience Provider 02/06/24 03/07/24 Anastasia Stearns, RN Lead Power Saw Operator 02/06/24 Germaine Lopez, W Community Health Worker Primary Care - CC 02/18/24 Robin Zepeda MD [address] [address] Assigned Neuroscience Provider 03/08/24 05/07/24 Lisa Zambrano MD [address] [place] [address] Assigned Heart and Vascular Provider 05/08/24 Raul Hoyos MD [address] 0628[address] Assigned Neuroscience Provider 05/08/24 documented as of this encounter
--- OUTSIDE RECORDS SUMMARY | 2024-05-14 12:03 | XMS_ITS | Encounter Summary ---
Author Organization [facility] Address [address] [place] [address]. [place] [address] Care Team Providers Care Apple Checker Name Role Phone Winston Villatoro OD Unavailable [phone] Denise Woodson Ra, APRN INTERLOCKER Unavailable [phone] Denise Woodson Ra, APRN INTERLOCKER Primary Care Provid er Usha Simon APRN INTERLOCKER Unavailable [phone]- [phone] Dangelo Salinas MD Unavailable Reason for Visit * Reason Comments Stroke Symptoms Encounter Details Date Type Department Care Team (Late st Contact Info) Description 02/04/2024 1:45 PM CDT - 02/04/2024 7:21 PM CDT Emergency [facility] Emergency Department [address] [place] [address] Jovita Vail MD [address] [place] [id number] Peter Gonzalez DO [address] [place] [id number] Left sided numbness; Vision abnormalities; Coordination abnormal [...] 5:24 PM CDT Thank you for choosing [facility] for your care. It was a pleasure [...] clinics below: - Primary Care Center (phone: [phone]) - Primary Care / [facility] (phone: [phone]) - Have your clinic provider review the [...] through Care Everywhere. * Numbness and Tingling (Japanese) documented in this encounter Medications at Time [...] from the original note were not included. [facility] Stroke Code Note History of Present Illness [...] fluctuation. There is significant dysmetria with bilateral hosfjg-ot-imxo and hands were outstretched and eyes closed, [...] month. On 01/04/24, the patient presented to [facility] ED for evaluation of persistent headache and [...] to outpatient PT/OT. She presented again to [facility] ER on 01/13 for continued frustration about [...] slowly improved and she is discharged to [facility] for management of right upper extremity weakness, ataxia, and gait instability. Per the patient and per rehab notes, she had excellent recovery during her ARU stay and her right side returned to her baseline. She was discharged from [facility] on 01/25 had felt like her normal self until Saturday when she started develop full facial numbness, and left arm and leg sensory changes stated above. 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 Left-sided numbness [place] A [place] is a 48 year old w/ PMH [...] month. In regard to her seizure at [facility] on 01/13, thepatient reports to us that [...] to the medical and neurology teams at [facility] for management of Bridget. Some of the [...] her contralateral ear on each hand with pjcdwa-ze-oeek. This does not improve with repetition. With eyes open, there is no dysmetria with minuyi-xp-jdwb bilaterally. No dysmetria with kqjg-rp-ygru bilaterally. Station/Gait: Patient displays significant swaying with [...] secs 7. Limb Ataxia 0-->Absent 8. Sensory 1-->Inrm-gb-syaxnxni sensory loss, patient feels pinprick is less [...] procedure related complications. She may continue her ACETYLENE CUTTER aspirin and follow up with stroke neurology & neuro IR as outpatient. Outpatient provider may consider referral to psychology for cognitive behavioral therapy (CBT). No further workup recommended. She maybe discharged home if she continues to have no focal deficits and ambulates well without support. Juancarlos Yip MD Certified Dietary Manager Department of Neurology Securely message with the Lán[employer] Console (learn more here) To page me or covering stroke neurology guest service team leader, click here: AMCOM Choose Interlocker tab at top, then search dropdown box [...] from the original note were not included. [facility] ([facility]) 02/04/24 ED PROVIDER NOTE ED 07 History [...] at [facility] for left sided pulsatile tinnitus on 01/08. [...] post-stroke seizures, admitted on 01/17/[address] [facility] for acute inpatient rehabilitation. Discharged in setting of acute mental status change, concernfor seizure, workup felt not consistent with seizure, episodes felt related to fatigue/stress. She functionally made progress with ongoing strength, balance, activity tolerance, and cognition below baseline. 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 Past Medical History Past Medical History: Diagnosis [...] Past Surgical History: Procedure Laterality Date C IT PORTFOLIO MANAGER PROCEDURE DATE: vag del. C IT PORTFOLIO MANAGER PROCEDURE DATE: 2000 tubal ligation C IT PORTFOLIO MANAGER PROCEDURE DATE: 1994 D&C CARDIAC SURGERY 06/2006 heart defect repair ESOPHAGOSCOPY, GASTROSCOPY, DUODENOSCOPY (EGD), COMBINED N/A 02/08/2021 Procedure: ESOPHAGOGASTRODUODENOSCOPY (EGD); Surgeon: Tuan Miller MD; Location: GI GI SURGERY 09/2020 gallbladder removed HC KNEE SCOPE,MED/LAT MENISECTOMY 08/04/13 LT HEART CATH, CLOSURE ATRIAL SEPTAL DEFECT 06/20/06 amplatzer septal occluder- serial #[id number] RW IT PORTFOLIO MANAGER (ABSTRACTED) pneumonia several times SURGICAL PATHOLOGY [...] plantar flexion; tandem gait is in tact; vgbqtp-ch-xlwz is intact and symmetrical; per patient decreased [...] shift. There is no focal loss of pollakc-white matter differentiation, insular ribbon sign, or focally [...] PM and verbalized understanding of the result. [facility] Stroke Communication Guidelines: [facility] ED: [phone] (EB ED) [facility] Inpatient: [phone] ext. [phone] (Stroke Ascom) [facility] ED or Inpatient: [phone] (WB ED) I have personally reviewed the [...] Images were reconstructed and reviewed on the [employer]angu[employer] Online 3D workstation. HEAD and NECK CTA: Thereafter, postcontrast images were obtained from the aortic arch through the winnebago of Ambrosio. Axial images were obtained using thin collimation multidetector helical technique. This CT angiogram data was reconstructed at thin intervals with mild overlap. Images were sent to the Follicaa workstation, and 3D reconstructions and multiplanar reformations were obtained with reconstructions performed by the technologist and the radiologist. The source images, multiplanar reformations, 3D reconstructions in both maximum intensity projection display and volume rendered models were reviewed, Contrast: 67cc of isovue 370 (accession [id number]), 50cc of isovue 370 (accession [id number]) Findings: CT Perfusion: Images documenting relative cerebral [...] Images were reconstructed and reviewed on the [employer] Online 3D workstation. HEAD and NECK CTA: Thereafter, postcontrast images were obtained from the aortic arch through the winnebago of Ambrosio. Axial images were obtained using thin collimation multidetector helical technique. This CT angiogram data was reconstructed at thin intervals with mild overlap. Images were sent to the Follicaa workstation, and 3D reconstructions and multiplanar reformations were obtained with reconstructions performed by the technologist and the radiologist. The source images, multiplanar reformations, 3D reconstructions in both maximum intensity projection display and volume rendered models were reviewed, Contrast: 67cc of isovue 370 (accession [id number]), 50cc of isovue 370 (accession [id number]) Findings: CT Perfusion: Images documenting relative cerebral [...] lesion or intracranial hemorrhage. MARLO CAIN MD [place] Draw Status: None Narrative The following orders were created for panel order [place] Draw. Procedure Abnormality Status --------- ------ Extra Blue Top Tube[[id number]] Final result Extra Red Top Tube[[id number]] Final result Extra Green Top ([place]...[[id number]] Final result Extra Purple Top Tube[[id number]] Final result Please view results for these tests on the individual orders. Extra Blue Top Tube Status: None Result Value Ref Range Hold Specimen JIC Extra Red Top Tube Status: None Result Value Ref Range Hold Specimen JIC Extra Green Top ([place] Heparin) Tube Status: None Result Value Ref [...] Rate 88 BPM Atrial Rate 88 BPM FL Interval 180 ms QRS Duration 70 ms QT 416 ms QTc 503 ms P [place] 56 degrees R AXIS 65 degrees T [place] 29 degrees Interpretation ECG Sinus rhythm with occasional Premature ventricular complexes Possible Left atrial enlargement Nonspecific ST abnormality Abnormal ECG Unconfirmed report - interpretation of this ECG is computer generated - see medical record for final interpretation Confirmed by - EMERGENCY ROOM, PHYSICIAN ([id number]), book editor DEE DEE JACINTO ([id number]) on 02/05/2024 3:26:57 AM CBC with Platelets & Differential Status: None Narrative The following orders were created for panel order CBC with Platelets & Differential. Procedure Abnormality Status --------- ------ CBC with platelets and d...[[id number]] Final result Please view results for these tests on the individual orders. Medications iopamidol (ISOVUE-370) solution 117 mL (117 mLs Intravenous $Given 02/04/24 1425) And sodium chloride 0.9 % bag for CT scan flush use (100 mLs As instructed $Given 02/04/24 1425) gadobutrol (GADAVIST) injection 10 mL (10 mLs Intravenous $Given 02/04/24 6936) Labs Ordered and Resulted from Time of [...] PM and verbalized understanding of the result. [facility] Stroke Communication Guidelines: [facility] ED: [phone] (EB ED) [facility] Inpatient: [phone] ext. [phone] (Stroke Ascom) [facility] ED or Inpatient: [phone] (WB ED) I have personally reviewed the [...] CVA(either ischemic or hemorrhagic), hypoglycemia, complex Migraine, ATTENDING ANESTHESIOLOGIST infection, Mass, MS, drug intoxication, and Seizure with post- ictal Reese's paralysis. Blood sugar on arrival was normal and patient has no h/o of migraine but did have recent episodes, unclear if they were seizures which could be a possible etiology, Patient is currently afebrile with no evidence of focal infection per history and physical exam to indicate ATTENDING ANESTHESIOLOGIST infection. Stat head CT and CT angio [...] POOLE, am serving as a trained medical nurse to document services personally performed byJovita Vail MD, based on the provider's statements to me. I, Jovita Vail MD, was physically present and have reviewed and verified the accuracy of this note documented by ANDREA POOLE. Jovita Vail MD [facility] EMERGENCY DEPARTMENT 02/04/2024 Jovita Vail MD [...] Office Visit [facility] [place] [address] [place] [phone] Denise Woodson Ra, CITY SECRETARY INTERLOCKER [address] [facility] [address] [address] [place], [place] [id number] 06/08/2024 8:30 AM CDT Office Visit [facility] [place] [address] [place] [phone] Denise Woodson Ra, CITY SECRETARY INTERLOCKER [address] [facility] [place], [place] [phone] documented as of this encounter Procedures Procedure [...] Atrial Rate 88 BPM RADIOLOG Y RESULTS FL Interval 180 ms RADIOLOG Y RESULTS QRS Duration 70 ms RADIOLO GY RESULTS QT 416 ms RADIOLOGY RESULTS QTc 503 ms RADIOLOGY RESULTS P [place] 56 degrees RADIOLOGY RESULTS R AXIS 65 degrees RADIOLOGY RESULTS T [place] 29 degrees RADIOLOGY RESULTS Interpretation ECG Sinus rhythm with occasional Premature ventricular complexes Possible Left atrial enlargement Nonspecific ST abnormality Abnormal ECG Unconfirmed report - interpretation of this ECG is computer generated - see medical record for final interpretation Confirmed by - EMERGENCY ROOM, PHYSICIAN ([id number]), book editor DEE DEE JACINTO ([id number]) on 02/05/2024 [...] ??Images were reconstructed and reviewed on the Tiangu[employer] Online 3D workstation. HEAD and NECK CTA: Thereafter, postcontrast images were obtained from the aortic arch through the winnebago of Ambrosio. ??Axial images were obtained using thin collimation multidetector helical technique. This CT angiogram data was reconstructed at thin intervals with mild overlap. Images were sent to the Follicaa workstation, and 3D reconstructions and multiplanar reformations were obtained with reconstructions performed by the technologist and the radiologist. The source images, multiplanar reformations, 3D reconstructions in both maximum intensity projection display and volume rendered models were reviewed, Contrast: 67cc of isovue 370 (accession [id number]), 50cc of isovue 370 (accession [id number]) Findings: CT Perfusion: Images documenting relative cerebral [...] Images were reconstructed and reviewed on the [employer] Online 3D workstation. HEAD and NECK CTA: Thereafter, postcontrast images were obtained from the aortic arch through the winnebago of Ambrosio. Axial images were obtained using thin collimation multidetector helical technique. This CT angiogram data was reconstructed at thin intervals with mild overlap. Images were sent to the Follicaa workstation, and 3D reconstructions and multiplanar reformations were obtained with reconstructions performed by the technologist and the radiologist. The source images, multiplanar reformations, 3D reconstructions in both maximum intensity projection display and volume rendered models were reviewed, Contrast: 67cc of isovue 370 (accession [id number]), 50cc of isovue 370 (accession [id number]) Findings: CT Perfusion: Images documenting relative cerebral [...] Jovita Vail MD G CT ORDERABLES * CT Head w/o Contrast (02/04/2024 2:42 PM CDT) Anatomical Region Laterality Modality Head, SUBRAD CT NEURO, SUBRA D CT NEURO, [facility] CT NEURO, RAD CT Computed Tomography [...] PM and verbalized understanding of the result. [facility] Stroke Communication Guidelines: [facility] ED: [phone] (EB ED) [facility] Inpatient: [phone] ext. [phone] (Stroke Ascom) [facility] ED or Inpatient: [phone] (WB ED) I have personally reviewed the [...] PM and verbalized understanding of the result. [facility] Stroke Communication Guidelines: [facility] ED: [phone] (EB ED) [facility] Inpatient: [phone] ext. [phone] (Stroke Ascom) [facility] ED or Inpatient: [phone] (WB ED) I have personally reviewed the [...] ??Images were reconstructed and reviewed on the Tiangu[employer] Online 3D workstation. HEAD and NECK CTA: Thereafter, postcontrast images were obtained from the aortic arch through the winnebago of Ambrosio. ??Axial images were obtained using thin collimation multidetector helical technique. This CT angiogram data was reconstructed at thin intervals with mild overlap. Images were sent to the Follicaa workstation, and 3D reconstructions and multiplanar reformations were obtained with reconstructions performed by the technologist and the radiologist. The source images, multiplanar reformations, 3D reconstructions in both maximum intensity projection display and volume rendered models were reviewed, Contrast: 67cc of isovue 370 (accession [id number]), 50cc of isovue 370 (accession [id number]) Findings: CT Perfusion: Images documenting relative cerebral [...] Images were reconstructed and reviewed on the Tiangu[employer] Online 3D workstation. HEAD and NECK CTA: Thereafter, postcontrast images were obtained from the aortic arch through the winnebago of Ambrosio. Axial images were obtained using thin collimation multidetector helical technique. This CT angiogram data was reconstructed at thin intervals with mild overlap. Images were sent to the Follicaa workstation, and 3D reconstructions and multiplanar reformations were obtained with reconstructions performed by the technologist and the radiologist. The source images, multiplanar reformations, 3D reconstructions in both maximum intensity projection display and volume rendered models were reviewed, Contrast: 67cc of isovue 370 (accession [id number]), 50cc of isovue 370 (accession [id number]) Findings: CT Perfusion: Images documenting relative cerebral [...] findings. MARLO CAIN MD Jovita Vail MD [facility] CT ORDERABLES * Creatinine POCT (02/04/2024 1:51 PM CDT) [facility] Creatinine POCT 0.9 0.5 - 1.0 mg/dL 02/04/2024 5:57 PM CDT [facility] P[facility] GFR, ESTIMATED POCT >60 >60 mL/min/1.7 3m2 02/04/2024 5:57 PM CDT [facility] P[facility] Blood, venous BLOOD SPECIMEN / Unknown 02/04/2024 1:51 PM CDT 02/04/2024 5:57 PM CDT Jovita Vail MD LAB - BEAKER POCT [facility] POC [facility] [address] [facility], [address] [place] [address] * CBC with platelets and differential (02/04/2024 1:49 PM CDT) [facility] WBC Count 8.2 4.0 - 11.0 10e3/uL [...] - BLOOD ORDERABL ES Performing Organization Address [facility]/ZIP Co de Phone Number [facility] [address] [facility], [address] * hCG Qualitative (02/04/2024 1:49 PM CDT) hCG Serum Qualitative Negative Negative PRATEEK 02/04/2024 2:45 PM CDT [facility] Comment:This test is for scr eening purposes. Results should be interpreted along with the clinical picture. Confirmation testing is available if warranted by ordering [id number], HCG Quantitative . Blood VENOUS LINE / Unknown Venipuncture / Unknown 02/04/2024 1:49 PM CDT 02/04/2024 2:02 PM CDT Jovita Vail MD LAB - BLOOD ORDERABL ES Performing Organization Address City/[facility]/ZIP Co de Phone Number [facility]ORY [facility] [address] [facility], [address] * Troponin T, High Sensitivity (02/04/2024 1:49 [...] - BLOOD ORDERABL ES Performing Organization Address [facility] de Phone Number U [facility]ATORY [facility] [address] [facility], [address] [place] [address] * Partial thromboplastin time (02/04/2024 1:49 PM CDT) aPTT 25 22 - 38 Seconds 02/04/2024 2:41 PM CDT [facility] Blood VENOUS LINE / Unknown Venipuncture / Unknown 02/04/2024 1:49 PM CDT 02/04/2024 2:03 PM CDT Jovita Vail MD LAB - BLOOD ORDERABL ES Performing Organization Address [facility] Co de Phone Number [facility] [address] [facility], [address] * INR (02/04/2024 1:49 PM CDT) INR 0.90 0.85 - 1.15 02/04/2024 2:41 PM CDT [facility] Blood VENOUS LINE / Unknown Venipuncture / Unknown 02/04/2024 1:49 PM CDT 02/04/2024 2:03 PM CDT Jovita Vail MD LAB - BLOOD ORDERABL ES [facility] [address] [facility] [address] [facility], [address] [place] [address] * Basic metabolic panel (02/04/2024 1:49 PM [...] LAB - BLOOD ORDERABL ES [facility] [address] [facility] [address] [facility], [address] [address] * Extra Purple Top Tube (02/04/2024 1:49 PM CDT) Hold Specimen [facility] 02/04/2024 3:16 PM CDT U LABORATORY Blood VENOUS LINE / Unknown Venipuncture / Unknown 02/04/2024 1:49 PM CDT 02/04/2024 2:03 PM CDT Jovita Vail MD LAB - BLOOD ORDERABL ES LABORATORY [facility] [address] [facility], [address] [address] * Extra Green Top ([place] Heparin) Tube (02/04/2024 1:49 PM CDT) Hold Specimen [facility] 02/04/2024 3:16 PM CDT LABORATORY Blood VENOUS LINE / Unknown Venipuncture / Unknown 02/04/2024 1:49 PM CDT 02/04/2024 2:02 PM CDT Jovita Vail MD LAB - BLOOD ORDERABL ES Performing Organization Address City/[facility]/ZIP Co de Phone Number LABORATORY [facility] [address] [facility], [address] [address], [facility] * Extra Red Top Tube (02/04/2024 1:49 PM CDT) Hold Specimen [facility] 02/04/2024 3:16 PM CDT U LABORATORY Blood VENOUS LINE / Unknown Venipuncture / Unknown 02/04/2024 1:49 PM CDT 02/04/2024 2:02 PM CDT Jovita Vail MD LAB - BLOOD ORDERABL ES LABORATORY [facility] [address] [facility], [address] [address] * Extra Blue Top Tube (02/04/2024 1:49 PM CDT) Hold Specimen JIC 02/04/2024 3:16 PM CDT [facility] Blood VENOUS LINE / Unknown Venipuncture / Unknown 02/04/2024 1:49 PM CDT 02/04/2024 2:03 PM CDT Jovita Vail MD LAB - BLOOD ORDERABL ES [facility] [address] [facility], [address] [place] [address], [facility] * Glucose by meter (02/04/2024 1:48 PM CDT) GLUCOSE BY METER POCT 93 70 - 99 mg/dL 02/04/2024 1:55 PM CDT [facility] POC Blood, Capillary BLOOD SPECIMEN / Unknown 02/04/2024 1:48 PM CDT 02/04/2024 1:55 PM CDT Jovita Vail MD LAB - BEAKER POCT U LAB[facility]ATORY POC [facility] [address] [facility], [address] [place] [address], [facility] documented in this encounter Visit Diagnoses [...] 117 mL 117 mL, Intravenous, ONCE, On 02/04/24 at 1420, For 1 dose, To be administered by Imaging staff during CTA Head/Neck scan, and CT Head Perfusion scan, if performed. $Given 02/04/2024 2:25 PM CDT 117 mLs sodium chloride 0.9 % bag for CT scan flush use As instructed, 100 mL, ONCE, On e [...] Group 1) 117 mL, Intravenous, ONCE, On e 02/04/24 [...] to med 117 mL, Intravenous, ONCE, On Sat02/04/24 at [...] documented as of this encounter Care Teams Apple Checker Relationship Specialty Start Date End Date Winston Villatoro OD [facility] [address] [facility] [address] [place] [address] PCP - Ophthalmology Ophthalmology 02/11/13 Denise Woodson Ra, APRN INTERLOCKER [address] [place] [address] PCP - General Family Practice 09/21/20 Denise Woodson Ra, APRN INTERLOCKER [address] [address] [facility] [address] Assigned PCP 07/17/20 Usha Simon APRN INTERLOCKER [address] [facility], [place] [address] Nurse Practitioner Neurological Surgery 01/24/24 Dangelo Salinas MD [address] [place] [address] Neurology 01/27/24 documented as of this encounter
--- OUTSIDE RECORDS SUMMARY | 2024-05-14 12:03 | XMS_ITS | Encounter Summary ---
Author Organization [facility] Address [address] [place] [address] Care Team Providers Care Acls Nurse Name Role Phone Yung Madrigal MD Unavailable Unavailable Winston Villatoro OD Unavailable [phone] Denise Woodson Ra, APRN EXECUTIVE TEAM LEADER Unavailable +[phone] Denise Woodson Ra LIBRARY ASSOCIATE EXECUTIVE TEAM LEADER Primary Care Provid er Usha Simon APRN EXECUTIVE TEAM LEADER Unavailable +[phone] Dangelo Salinas MD Unavailable Usha Simon APRN EXECUTIVE TEAM LEADER Unavailable +- [phone] Anastasia Stearns RN Unavailable Germaine Lopez CHW Unavailable +[phone] Robin Zepeda MD Unavailable +-[phone] Lisa Zambrano MD Unavailable +- [phone] Raul Hoyos MD Unavailable Reason for Visit * Reason Comments Medication Refill Encounter Details Date Type Department Care Team (Late st Contact Info) Description 02/19/2022 [facility] [address] [place] [address] Denise Woodson Ra, APRN EXECUTIVE TEAM LEADER [address] [place] [address] Medication Refill Social History Tobacco [...] AM CDT [facility] [address] [place] [phone] Denise Woodson Ra, LIBRARY ASSOCIATE EXECUTIVE TEAM LEADER [address] [place] [address] 06/08/2024 8:30 AM CDT Office Visit [facility] [place] [address] [place] [phone] Denise Woodson Ra, LIBRARY ASSOCIATE EXECUTIVE TEAM LEADER [address] [place], [place] 0199468 documented as of this encounter Visit Diagnoses Diagnosis Moderate persistent asthma without complication Unspecified asthma documented in this encounter Additional Health Concerns Assessment Noted Time PHQ-9 Depression Total Score: 0 06/23/20 21 4:11 PM CDT documented as of this encounter Care Teams Acls Nurse Relationship Specialty Start Date End Date Yung Madrigal MD RETIRED PCP - Orthopaedics Orthopedics 08/26/12 01/20/24 Winston Villatoro OD [facility] [place] [address] [place] [address] PCP - Ophthalmology Ophthalmology 02/11/13 Denise Woodson Ra, APRN EXECUTIVE TEAM LEADER [address] [place] [address] PCP - General Family Practice 09/21/20 Denise Woodson Ra, APRN EXECUTIVE TEAM LEADER [address] [place] [address] Assigned PCP 07/17/20 Usha Simon APRN EXECUTIVE TEAM LEADER [address] [place] [address] 437035 Nurse Practitioner Neurological Surgery 01/24/24 Dangelo Salinas MD [address] [id number] Neurology 01/27/24 Usha Simon APRN EXECUTIVE TEAM LEADER [address] [place] [address] Assigned Neuroscience Provider 02/06/24 03/07/24 Anastasia Stearns, RN Lead Forestry Laborer 02/06/24 Germaine Lopez, CHW Community Health Worker Primary Care - CC 02/18/24 Robin Zepeda MD [address] [place] [address] [place] [address] Assigned Neuroscience Provider 03/08/24 05/07/24 Lisa Zambrano MD [address] [place] [address] Assigned Heart and Vascular Provider 05/08/24 Raul Hoyos MD 909 [facility] [place] [address] Assigned Neuroscience Provider 05/08/24 documented as of this encounter
--- OUTSIDE RECORDS SUMMARY | 2024-05-14 12:03 | XMS_ITS | Encounter Summary ---
Author Organization [facility] Address [address] [place] [address] Care Team Providers Care Master Machinist Name Role Phone Yung Madrigal MD Unavailable Unavailable Winston Villatoro OD Unavailable [phone] Denise Woodson Ra, APRN BANK REPRESENTATIVE Unavailable + [phone] Denise Woodson Ra CASTING TECHNICIAN BANK REPRESENTATIVE Primary Care Provid er Usha Simon APRN BANK REPRESENTATIVE Unavailable + [phone] Dangelo Salinas MD Unavailable Usha Simon APRN BANK REPRESENTATIVE Unavailable +- [phone] Anastasia Stearns RN Unavailable +[phone] Germaine Lopez CHW Unavailable +[phone] Robin Zepeda MD Unavailable +[phone] Lisa Zambrano MD Unavailable + [phone] Raul Hoyos MD Unavailable Encounter Details Date Type Department Care Team (Late st Contact Info) Description 01/10/2023 [facility] [address] [address] Arianna Lo Social History Tobacco [...] CDT Office Visit [facility] [place] [address] [facility] [place] [address] Denise Woodson Ra, BARRERA BANK REPRESENTATIVE [address] [address] [place], [place] 45484[address] 06/08/2024 8:30 AM CDT Office Visit [facility] [place] [address] [facility] [place] [address] Denise Woodson Ra, APRN CNP [address] [place], [place] 20038[address] documented as of this encounter Visit Diagnoses Not on filedocumented in this encounter Additional Health Concerns Assessment Noted Time PHQ-9 Depression Total Score: 0 06/23/20 21 4:11 PM CDT documented as of this encounter Care Teams Master Machinist Relationship Specialty Start Date End Date Yung Madrigal MD RETIRED PCP - Orthopaedics Orthopedics 08/26/12 01/20/24 Winston Villatoro OD [facility] [place] [address] [facility] [address] [place] [address] PCP - Ophthalmology Ophthalmology 02/11/13 Denise Woodson Ra, APRN CNP [address] [place] [address] PCP - General Family Practice 09/21/20 Denise Woodson Ra, APRN CNP [address] [place] [address] Assigned PCP 07/17/20 Usha Simon APRN BANK REPRESENTATIVE [address] [address] Nurse Practitioner Neurological Surgery 01/24/24 Dangelo Salinas MD [address] [place] [address] Neurology 01/27/24 Usha Simon APRN BANK REPRESENTATIVE [address] [address] Assigned Neuroscience Provider 02/06/24 03/07/24 Anastasia Stearns, RN Lead Systems Analyst Developer 02/06/24 Germaine Lopez, [facility] Community Health Worker Primary Care - CC 02/18/24 Robin Zepeda MD [address] [address] Assigned Neuroscience Provider 03/08/24 05/07/24 Lisa Zambrano MD [address] [place] [address] Assigned Heart and Vascular Provider 05/08/24 Raul Hoyos MD [address] [address] Assigned Neuroscience Provider 05/08/24 documented as of this encounter
--- OUTSIDE RECORDS SUMMARY | 2024-05-14 12:03 | XMS_ITS | Encounter Summary ---
Author Organization [facility] Address [address] [place] [address] Care Team Providers Care Cranberry Sorter Name Role Phone Yung Madrigal MD Unavailable Unavailable Winston Villatoro OD Unavailable [phone] Denise Woodson Ra, APRN GAME TECHNICIAN Unavailable + [phone] Denise Woodson Ra INSURANCE ADMINISTRATIVE ASSISTANT GAME TECHNICIAN Primary Care Provid er Usha Simon INSURANCE ADMINISTRATIVE ASSISTANT GAME TECHNICIAN Unavailable + [phone] Dangelo Salinas MD Unavailable Usha Simon APRN GAME TECHNICIAN Unavailable +- [phone] Anastasia Stearns RN Unavailable +[phone] Germaine Lopez CHW Unavailable +[phone] Robin Zepeda MD Unavailable +[phone] Lisa Zambrano MD Unavailable + [phone] Raul Hoyos MD Unavailable [phone] Encounter Details Date Type Department Care Team (Late st Contact Info) Description 01/22/2022 [facility] [address] [address] Angelo Escobar Social History Tobacco [...] Description 05/26/2024 8:30 AM CDT Office Visit [facility] [place] [address] [place] [phone] Denise Woodson Ra, INSURANCE ADMINISTRATIVE ASSISTANT GAME TECHNICIAN [address] [place], [place] 3498468 06/08/2024 8:30 AM CDT Office Visit [facility] [place] [address] [facility] [place] [phone] Denise Woodson Ra, BARRERA GAME TECHNICIAN [address] [facility], [place] [id number] documented as of this encounter Visit Diagnoses Not on filedocumented in this encounter Additional Health Concerns Assessment Noted Time PHQ-9 Depression Total Score: 0 06/23/20 21 4:11 PM CDT documented as of this encounter Care Teams Cranberry Sorter Relationship Specialty Start Date End Date Yung Madrigal MD RETIRED PCP - Orthopaedics Orthopedics 08/26/12 01/20/24 Winston Villatoro OD [facility] [place] [address] [place] [address] PCP - Ophthalmology Ophthalmology 02/11/13 Denise Woodson Ra, BARRERA GAME TECHNICIAN [address] [address] [place] [address] PCP - General Family Practice 09/21/20 Denise Woodson Ra, APRN GAME TECHNICIAN [address] [place] [address] Assigned PCP 07/17/20 Usha Simon APRN GAME TECHNICIAN [address] [address] Nurse Practitioner Neurological Surgery 01/24/24 Dangelo Salinas MD [address] [place] [address] Neurology 01/27/24 Usha Simon APRN GAME TECHNICIAN [address] [address]65[address] Assigned Neuroscience Provider 02/06/24 03/07/24 Anastasia Stearns, RN Lead Automobile Service Station Attendant 02/06/24 Germaine Lopez, W Community Health Worker Primary Care - CC 02/18/24 Robin Zepeda MD [address] [address] Assigned Neuroscience Provider 03/08/24 05/07/24 Lisa Zambrano MD [address] [place] [address] Assigned Heart and Vascular Provider 05/08/24 Raul Hoyos MD 909 [facility] HO[address]82NJ [place] [address] Assigned Neuroscience Provider 05/08/24 documented as of this encounter
--- OUTSIDE RECORDS SUMMARY | 2024-05-14 12:04 | XMS_ITS | Encounter Summary ---
Author Organization [facility] Address [address] [place] [address] Care Team Providers Care Event Specialist Product Demonstrator Name Role Phone Timmy Perez MD Unavailable Unavailable Yung Madrigal MD Unavailable Unavailable Winston Villatoro OD Unavailable [phone] Apple Sykes MD Primary Care Provider Unavailab Westley Vera MD Unavailable [phone] Alessandra Cabrales APRN HOG CUTTER Primary Car e Provider Serum, Clara Garland MD Primary Care Provider Serum, Clara Garland MD Unavailable +[phone] Serum, Clara Garland MD Unavailable +[phone] Denise Woodson Ra, APRN HOG CUTTER Unavailable + [phone] Denise Woodson Ra, APRN HOG CUTTER Primary Care Provid er Usha Simon APRN HOG CUTTER Unavailable + [phone] Dangelo Salinas MD Unavailable Usha Simon APRN HOG CUTTER Unavailable + [phone] Anastasia Stearns RN Unavailable +[phone] Germaine Lopez CHW Unavailable +[phone] Robin Zepeda MD Unavailable +[phone] Lisa Zambrano MD Unavailable + [phone] Raul Hoyos MD Unavailable Reason for Visit * Reason Onset Date Comments MyChart Communication 05/30/2013 Encounter Details Date Type Department Care Team (Latest Contact Info) Description 05/30/2013 MyC Medical Advice [facility] in [facility] [address] [place] [phone] Apple Sykes MD MyChart Communication Social History [...] CDT [facility] [address] [place] [phone] Denise Woodson Ra, RN CLINICAL HOG CUTTER [address] [place], [place] [phone] 06/08/2024 8:30 AM CDT Office [facility] [place] [address] [place] [phone] Denise Woodson Ra, RN CLINICAL HOG CUTTER [address] [place], [place] 6071568 documented as of this encounter Visit Diagnoses Not on filedocumented in this encounter Care Teams Event Specialist Product Demonstrator Relationship Specialty Start Date End Date Timmy Perez MD PCP - Obstetrics/Gynecology 03/02/08 08/07/15 Yung Madrigal MD RETIRED PCP - Orthopaedics Orthopedics 08/26/12 01/20/24 Winston Villatoro OD [facility] [address] [facility] [address] [place] [address] PCP - Ophthalmology Ophthalmology 02/11/13 Apple Sykes MD [facility] 701 [facility] [address] [place] [address] PCP - General Family Practice 05/04/13 10/25/16 Westley Bates MD XXX RETIRED XXX 701 [facility] [address] [place] [address] PCP - ENT Otolaryngology 05/14/13 07/28/18 Georgina-Alessandra Gómez APRN HOG CUTTER [address] [facility] [place] [address] PCP - General Nurse Practitioner 10/26/16 02/06/17 Clara Cornell MD [facility]5 [facility] [place] [address] PCP - General Internal Medicine 02/07/17 09/20/20 Clara Cornell MD [address] [place] [address] PCP - Assigned PCP 01/17/17 11/18/18 Denise Woodson Ra, APRN HOG CUTTER [address] [place] [address] PCP - General Family Practice 09/21/20 Clara Cornell MD [address] [place] [address] Assigned PCP 01/17/17 07/16/20 Denise Woodson Ra, APRN HOG CUTTER [address] [place] [address] Assigned PCP 07/17/20 Usha Simon APRN HOG CUTTER [address] [address] Nurse Practitioner Neurological Surgery 01/24/24 Dangelo Salinas MD [address] [place] [address] Neurology 01/27/24 Usha Simon APRN HOG CUTTER [address] [place] [address] Assigned Neuroscience Provider 02/06/24 03/07/24 Anastasia Stearns, RN Lead Glass Frame Fitter 02/06/24 Germaine Lopez, W Community Health Worker Primary Care - CC 02/18/24 Robin Zepeda MD [address] [address] Assigned Neuroscience Provider 03/08/24 05/07/24 Lisa Zambrano MD [address] [place] [address] Assigned Heart and Vascular Provider 05/08/24 Raul Hoyos MD [address] [address] Assigned Neuroscience Provider 05/08/24 documented as of this encounter
--- OUTSIDE RECORDS SUMMARY | 2024-05-14 12:04 | XMS_ITS | Encounter Summary ---
Author Organization [facility] Address [address] [place] [address] Care Team Providers Care Pe Teacher Name Role Phone Timmy Perez MD Unavailable Unavailable Yung Madrigal MD Unavailable Unavailable Frw, None Primary Care Provider Unavailabl e Winston Villatoro OD Unavailable [phone] Apple Sykes MD Primary Care Provider Unavailab Westley Vera MD Unavailable Alessandra Cabrales APRN SUBSTITUTE NURSE Primary Car e Provider Serum, Clara Garland MD Primary Care Provider Serum, Clara Garland MD Unavailable +[phone] Serum, Clara Garland MD Unavailable [phone] Denise Woodson Ra, APRN SUBSTITUTE NURSE Unavailable + [phone] Denise Woodson Ra, APRN SUBSTITUTE NURSE Primary Care Provid er Usha Simon APRN SUBSTITUTE NURSE Unavailable + [phone] Dangelo Salinas MD Unavailable Usha Simon APRN SUBSTITUTE NURSE Unavailable + [phone] Anastasia Stearns RN Unavailable +[phone] Germaine Lopez CHW Unavailable [phone] Robin Zepeda MD Unavailable +[phone] Lisa Zambrano MD Unavailable + [phone] Raul Hoyos MD Unavailable Reason for Visit * Reason Onset Date Comments Medication Question 04/21/2013 Farhan Saez [facility] Encounter Details Date Type Department Care Team (Late st Contact Info) Description 04/21/2013 Telephone [facility] in [facility] [address] [place] [address] Janna Rodriguez, licensed investment sales assistant Question (Far[facility]) Social History Tobacco Use Types [...] Description 05/26/2024 8:30 AM CDT Office Visit [address] [address] Denise Woodson Ra, BACKER UP SUBSTITUTE NURSE [address] [place], [place] 57[address] 06/08/2024 8:30 AM CDT Office Visit [facility] [place] [address] [place] [address] Denise Woodson Ra, BACKER UP SUBSTITUTE NURSE [address] [facility] [address] documented as of this encounter Visit Diagnoses Not on filedocumented in this encounter Care Teams Pe Teacher Relationship Specialty Start Date End Date Timmy Perez MD PCP - Obstetrics/Gynecology 03/02/08 08/07/15 Yung Madrigal MD RETIRED PCP - Orthopaedics Orthopedics 08/26/12 01/20/24 Frw, None PCP - General Family Practice 08/26/12 05/03/13 Winston Villatoro, OD [facility] [place] [address] [place] [address] PCP - Ophthalmology Ophthalmology 02/11/13 Apple Sykes MD [facility] [place] [address] [place] [address] PCP - General Family Practice 05/04/13 10/25/16 Westley Bates MD XXX RETIRED XXX [address] [place] [address] PCP - ENT Otolaryngology 05/14/13 07/28/18 lAessandra Cabrales APRN SUBSTITUTE NURSE [address] [facility] [place] [address] PCP - General Nurse Practitioner 10/26/16 02/06/17 Clara Cornell MD [address] [facility] [place] [address] PCP - General Internal Medicine 02/07/17 09/20/20 Clara Cornell MD 8675 [place] [address] PCP - Assigned PCP 01/17/17 11/18/18 Denise Woodson Ra, BACKER UP SUBSTITUTE NURSE [address] [place] [address] PCP - General Family Practice 09/21/20 Clara Cornell MD 8675 [place] [address] Assigned PCP 01/17/17 07/16/20 Denise Woodson Ra BACKER UP SUBSTITUTE NURSE [address] [address] [facility] [place] [address] Assigned PCP 07/17/20 Usha Simon APRN SUBSTITUTE NURSE [address] [address] Nurse Practitioner Neurological Surgery 01/24/24 Dangelo Salinas MD [address] [address] Neurology 01/27/24 Usha Simon APRN SUBSTITUTE NURSE [address] [address] Assigned Neuroscience Provider 02/06/24 03/07/24 Anastasia Stearns, RN Lead Clinical Sales Consultant 02/06/24 Germaine Lopez, W Community Health Worker Primary Care - CC 02/18/24 Robin Zepeda MD [address] [address]25[address] Assigned Neuroscience Provider 03/08/24 05/07/24 Lisa Zambrano MD [address] [place] [address] [place] 973985 Assigned Heart and Vascular Provider 05/08/24 Raul Hoyos MD [address] [place] [address]90[address] Assigned Neuroscience Provider 05/08/24 documented as of this encounter
--- OUTSIDE RECORDS SUMMARY | 2024-05-14 12:04 | XMS_ITS | Encounter Summary ---
Author Organization [facility] Address [address] [place] [address] Care Team Providers Care Compensation And Benefits Administrator Name Role Phone Yung Madrigal MD Unavailable Unavailable Winston Villatoro OD Unavailable [phone] Denise Woodson Ra, APRN LEAD FIRE PROTECTION ENGINEER Unavailable + [phone] Denise Woodson Ra EQUIPMENT SPECIALIST LEAD FIRE PROTECTION ENGINEER Primary Care Provid er Usha Simon EQUIPMENT SPECIALIST LEAD FIRE PROTECTION ENGINEER Unavailable +- [phone] Dangelo Salinas MD Unavailable Usha Simon EQUIPMENT SPECIALIST LEAD FIRE PROTECTION ENGINEER Unavailable +- [phone] Anastasia Stearns RN Unavailable +[phone] Germaine Lopez CHW Unavailable [phone] Robin Zepeda MD Unavailable +[phone] Lisa Zambrano MD Unavailable + [phone] Raul Hoyos MD Unavailable Encounter Details Date Type Department Care Team (Late st Contact Info) Description 12/30/2020 [facility] Advice [address] [address] Jessica Phipps, DIGITAL FIELD SERVICE TECHNICIAN Social History Tobacco Use Types Packs/Day Years [...] AM CDT Office Visit [facility] [place] [address] [place] [phone] Denise Woodson Ra, BARRERA LEAD FIRE PROTECTION ENGINEER [address] [address] [place], [place] 40313[address] 06/08/2024 8:30 AM CDT Office Visit [facility] [place] [address] [place] [address] Denise Woodson Ra, BARRERA LEAD FIRE PROTECTION ENGINEER [address] [address] [place], [place] 9277868 documented as of this encounter Visit Diagnoses Not on filedocumented in this encounter Additional Health Concerns Assessment Noted Time PHQ-9 Depression Total Score: 0 06/15/20 19 7:09 PM CDT documented as of this encounter Care Teams Compensation And Benefits Administrator Relationship Specialty Start Date End Date Yung Madrigal MD RETIRED PCP - Orthopaedics Orthopedics 08/26/12 01/20/24 Winston Villatoro OD [facility] [place] [address] [place] [address] PCP - Ophthalmology Ophthalmology 02/11/13 Denise Woodson Ra, EQUIPMENT SPECIALIST LEAD FIRE PROTECTION ENGINEER [address] [address] [place] 110[address] PCP - General Family Practice 09/21/20 Denise Woodson Ra, APRN LEAD FIRE PROTECTION ENGINEER [address] [place] [address] Assigned PCP 07/17/20 Usha Simon APRN LEAD FIRE PROTECTION ENGINEER [address] [address] Nurse Practitioner Neurological Surgery 01/24/24 Dangelo Salinas MD [address] [place] [address] Neurology 01/27/24 Usha Simon APRN LEAD FIRE PROTECTION ENGINEER [address] [address] Assigned Neuroscience Provider 02/06/24 03/07/24 Anastasia Stearns, RN Lead Voltmeter Operator 02/06/24 Germaine Lopez, W Community Health Worker Primary Care - CC 02/18/24 Robin Zepeda MD [address] [address] Assigned Neuroscience Provider 03/08/24 05/07/24 Lisa Zambrano MD [address] [place] [address] Assigned Heart and Vascular Provider 05/08/24 Raul Hoyos MD [address] [address] Assigned Neuroscience Provider 05/08/24 documented as of this encounter
--- OUTSIDE RECORDS SUMMARY | 2024-05-14 12:04 | XMS_ITS | Encounter Summary ---
Author Organization [place] Address [address] [place] [address] Care Team Providers Care Nitroglycerin Distributor Name Role Phone Yung Madrigal MD Unavailable Unavailable Winston Villatoro OD Unavailable [phone] Denise Woodson Ra, APRN PARIMUTUEL TICKET SELLER Unavailable + [phone] Denise Woodson Ra CLAIM PROCESSOR PARIMUTUEL TICKET SELLER Primary Care Provid er Usha Simon CLAIM PROCESSOR PARIMUTUEL TICKET SELLER Unavailable [phone] Dangelo Salinas MD Unavailable Usha Simon CLAIM PROCESSOR PARIMUTUEL TICKET SELLER Unavailable +- [phone] Anastasia Stearns RN Unavailable [phone] Germaine Lopez CHW Unavailable [phone] Robin Zepeda MD Unavailable +[phone] Lisa Zambrano MD Unavailable + [phone] Raul Hoyos MD Unavailable Reason for Visit * Reason Onset Date Comments Medication Request 04/20/2021 escitalopram (LEXAPRO) 10 MG tablet Encounter Details Date Type Department Care Team (Late st Contact Info) Description 04/20/2021 [facility] [address] [place] [address] Denise Woodson Ra CLAIM PROCESSOR PARIMUTUEL TICKET SELLER [address] [place] [address] Medication Request (escitalopram (LEXAPRO)... Social History Tobacco [...] Denise Woodson Future Office Visit: Alcon Zamora Bobbi October 20, 2020?? 10:25 AM Hi, I am no longer taking the meds. I stopped mid September. Usually June to August are the months I take them. I am doing well off of the med. Alcon documented in this encounter Plan of Treatment Upcoming Encounters Date Type Department Care Team (Late st Contact Info) Description 05/26/2024 8:30 AM CDT Office Visit [facility] [address] [place] [address] Denise Woodson Ra, CLAIM PROCESSOR PARIMUTUEL TICKET SELLER [address] [place], [place] [id number] 06/08/2024 8:30 AM CDT Office Visit [facility] [address] [place] [phone] Denise Woodson Ra, CLAIM PROCESSOR PARIMUTUEL TICKET SELLER [address] [facility], [place] 404[address] documented as of this encounter Visit Diagnoses Diagnosis Generalized anxiety disorder Mild recurrent major depression (H24) Major depressive disorder, recurrent episode, mild documented in this encounter Additional Health Concerns Assessment Noted Time PHQ-9 Depression Total Score: 0 01/05/20 21 9:31 AM CDT documented as of this encounter Care Teams Nitroglycerin Distributor Relationship Specialty Start Date End Date Yung Madrigal MD RETIRED PCP - Orthopaedics Orthopedics 08/26/12 01/20/24 Winston Villatoro OD [facility] [place] [address] [facility] [address] [place] [address] PCP - Ophthalmology Ophthalmology 02/11/13 Denise Woodson Ra, APRN PARIMUTUEL TICKET SELLER [address] [place] [address] PCP - General Family Practice 09/21/20 Denise Woodson Ra, APRN PARIMUTUEL TICKET SELLER [address] [place] [address] Assigned PCP 07/17/20 Usha Simon APRN PARIMUTUEL TICKET SELLER [address] [place] [address] 907905 Nurse Practitioner Neurological Surgery 01/24/24 Dangelo Salinas MD [address] [address] [place], [place] [id number] Neurology 01/27/24 Usha Simon APRN PARIMUTUEL TICKET SELLER [address] 032295 Assigned Neuroscience Provider 02/06/24 03/07/24 Anastasia Stearns, RN Lead Hydrate Control Tender 02/06/24 Germaine Lopez, W Community Health Worker Primary Care - CC 02/18/24 Robin Zepeda MD [address] [id number] Assigned Neuroscience Provider 03/08/24 05/07/24 Lisa Zambrano MD [address] [place] [address] Assigned Heart and Vascular Provider 05/08/24 Raul Hoyos MD 9 [facility] [id number] [place] [address] Assigned Neuroscience Provider 05/08/24 documented as of this encounter
--- OUTSIDE RECORDS SUMMARY | 2024-05-14 12:04 | XMS_ITS | Encounter Summary ---
Author Organization [place] Address [address] [place] [address] Care Team Providers Care Quiller Tender Name Role Phone Yung Madrigal MD Unavailable Unavailable Winston Villatoro OD Unavailable [phone] Serum, Clara Garland MD Primary Care Provider Serum, Clara Garland MD Unavailable +[phone] Denise Woodson Ra GRAIN MIXER VEHICLE ASSEMBLY INSPECTOR Unavailable + [phone] Denise Woodson Ra GRAIN MIXER VEHICLE ASSEMBLY INSPECTOR Primary Care Provid er Usha Simon APRN VEHICLE ASSEMBLY INSPECTOR Unavailable +- [phone] Dangelo Salinas MD Unavailable Usha Simon GRAIN MIXER VEHICLE ASSEMBLY INSPECTOR Unavailable + [phone] Anastasia Stearns RN Unavailable +[phone] Germaine Lopez CHW Unavailable [phone] Robin Zepeda MD Unavailable +[phone] Lisa Zambrano MD Unavailable + [phone] Raul Hoyos MD Unavailable Reason for Visit * Reason Onset Date Comments LAB REQUEST 06/16/2019 Encounter Details Date Type Department Care Team (Late st Contact Info) Description 06/16/2019 [facility] [address] [place] [address] Serum, Clara Garland MD [address] [place] [address] LAB REQUEST Social History Tobacco Use Types [...] RN - 06/16/2019 4:17 PM CDT See [employer] message regarding yesterday's appointment. Patient requesting to check TSH and antibodies for pt reported possible yonas's. Pended TSH for provider review. documented in this encounter Plan of Treatment Upcoming Encounters Date Type Department Care Team (Late st Contact Info) Description 05/26/2024 8:30 AM CDT Office Visit [facility] [address] [place] [phone] Denise Woodson Ra, APRN VEHICLE ASSEMBLY INSPECTOR [address] [place] [address] 06/08/2024 8:30 AM CDT [facility] [address] [place] [phone] Denise Woodson Ra, APRN VEHICLE ASSEMBLY INSPECTOR [address] [place], [place] 0494[address] documented as of this encounter Results * Follicle stimulating hormone (06/22/2019 3:36 PM CDT) FSH 9.5 IU/L 06/23/2019 2:32 PM CDT [facility] Comment: FSH Reference Range Female: Follicular ?2.5-10.2 ?Mid-cycle ? 3.4-33.4 ?Luteal ?1.5-9.1 ?Postmenopausal ??23.0-116.3 Blood specimen (specimen) 06/22/2019 3:36 PM CDT 06/22/2019 3:37 PM CDT Clara Cornell MD LAB - BLOOD ORD ERALORELEI Performing Organization Address City/[facility]/ZIP Co de Phone Number [facility] [address] [place] [address] * TSH with free T4 reflex FUTURE anytime (06/22/2019 3:36 PM CDT) TSH 3.30 0.40 - 4.00 mU/L 06/23/2019 3:12 PM CDT [facility] Blood specimen (specimen) 06/22/2019 3:36 PM CDT 06/22/2019 3:37 PM CDT Clara Cornell MD LAB - BLOOD ORD ERALORELEI Performing Organization Address City/[facility]/ZIP Co de Phone Number [facility] [address] [place], [place] [address] documented in this encounter Visit Diagnoses Diagnosis Anti-TPO antibodies present- Primary Other and unspecified nonspecific immunological findings Excessive sweating Generalized hyperhidrosis documented in this encounter Additional Health Concerns Assessment Noted Time PHQ-9 Depression Total Score: 0 06/15/20 19 7:09 PM CDT documented as of this encounter Care Teams Quiller Tender Relationship Specialty Start Date End Date Yung Madrigal MD RETIRED PCP - Orthopaedics Orthopedics 08/26/12 01/20/24 Winston Villatoro OD [address] [address] PCP - Ophthalmology Ophthalmology 02/11/13 Clara Cornell MD [facility] [place] [address] [place] [address] PCP - General Internal Medicine 02/07/17 09/20/20 Denise Woodson Ra GRAIN MIXER VEHICLE ASSEMBLY INSPECTOR [address] [place] [address] PCP - General Family Practice 09/21/20 Clara Cornell MD [address] [place] [address] Assigned PCP 01/17/17 07/16/20 Denise Woodson Ra GRAIN MIXER VEHICLE ASSEMBLY INSPECTOR [address] [place] [address] Assigned PCP 07/17/20 Usha Simon APRN VEHICLE ASSEMBLY INSPECTOR [address] [place] [address] Nurse Practitioner Neurological Surgery 01/24/24 Dangelo Salinas MD [address] [address] [address] Neurology 01/27/24 Usha Simon APRN VEHICLE ASSEMBLY INSPECTOR [address] [address] Assigned Neuroscience Provider 02/06/24 03/07/24 Anastasia Stearns, RN Lead Stack Yield Engineer 02/06/24 Germaine Lopez, [facility] Community Health Worker Primary Care - CC 02/18/24 Robin Zepeda MD [address] [address] Assigned Neuroscience Provider 03/08/24 05/07/24 Lisa Zambrano MD [address] [place] [address] Assigned Heart and Vascular Provider 05/08/24 Raul Hoyos MD [address] [address] Assigned Neuroscience Provider 05/08/24 documented as of this encounter
--- OUTSIDE RECORDS SUMMARY | 2024-05-14 12:04 | XMS_ITS | Encounter Summary ---
Author Organization [place] Address [address] [place] [address] Care Team Providers Care Structural Mill Supervisor Name Role Phone Yung Madrigal MD Unavailable Unavailable Winston Villatoro OD Unavailable [phone] Serum, Clara Garland MD Primary Care Provider Serum, Clara Garland MD Unavailable [phone] Denise Woodson Ra SOLAR SALES ESTIMATOR COLLISION TECHNICIAN Unavailable + [phone] Denise Woodson Ra SOLAR SALES ESTIMATOR COLLISION TECHNICIAN Primary Care Provid er Usha Simon APRN COLLISION TECHNICIAN Unavailable +- [phone] Dangelo Salinas MD Unavailable Usha Simon SOLAR SALES ESTIMATOR COLLISION TECHNICIAN Unavailable + [phone] Anastasia Stearns RN Unavailable +[phone] Germaine Lopez CHW Unavailable [phone] Robin Zepeda MD Unavailable +[phone] Lisa Zambrano MD Unavailable + [phone] Raul Hoyos MD Unavailable Encounter Details Date Type Department Care Team (Late st Contact Info) Description 01/21/2019 [facility] [address] [place] [address] Phoebe Del Cid Social History [...] Description 05/26/2024 8:30 AM CDT Office Visit [facility] [address] [place] [phone] Denise Woodson Ra, SOLAR SALES ESTIMATOR COLLISION TECHNICIAN [address] [place], [place] [address] 06/08/2024 8:30 AM CDT Office Visit [facility] [address] [place] [phone] Denise Woodson Ra, SOLAR SALES ESTIMATOR COLLISION TECHNICIAN [address] [facility], [place] 58[address] documented as of this encounter Visit Diagnoses Not on filedocumented in this encounter Additional Health Concerns Assessment Noted Time PHQ-9 Depression Total Score: 0 02/09/20 17 7:29 AM CDT documented as of this encounter Care Teams Structural Mill Supervisor Relationship Specialty Start Date End Date Yung Madrigal MD RETIRED PCP - Orthopaedics Orthopedics 08/26/12 01/20/24 Winston Villatoro OD [facility] [place] [address] [place] [address] PCP - Ophthalmology Ophthalmology 02/11/13 Clara Cornell MD [facility] [place] [address] [place] [address] PCP - General Internal Medicine 02/07/17 09/20/20 Denise Woodson Ra, APRN COLLISION TECHNICIAN [address] [place] [address] PCP - General Family Practice 09/21/20 Clara Cornell MD [address]75 [place] [address] Assigned PCP 01/17/17 07/16/20 Denise Woodson Ra, APRN COLLISION TECHNICIAN [address] [place] [address] Assigned PCP 07/17/20 Usha Simon APRN COLLISION TECHNICIAN [address] [place] [address]29805 Nurse Practitioner Neurological Surgery 01/24/24 Dangelo Salinas MD [address] [address] Neurology 01/27/24 Usha Simon APRN COLLISION TECHNICIAN [address] 443705 Assigned Neuroscience Provider 02/06/24 03/07/24 Anastasia Stearns, RN Lead Steeler 02/06/24 Germaine Lopez, CHW Community Health Worker Primary Care - CC 02/18/24 Robin Zepeda MD [address] 459785 Assigned Neuroscience Provider 03/08/24 05/07/24 Lisa Zambrano MD [address] [facility] [address] [place] [address] [place] 739035 Assigned Heart and Vascular Provider 05/08/24 Raul Hoyos MD 9 [facility], [place] [address] Assigned Neuroscience Provider 05/08/24 documented as of this encounter
--- OUTSIDE RECORDS SUMMARY | 2024-05-14 12:04 | XMS_ITS | Encounter Summary ---
Author Organization [place] Address [address] [place] [address] Care Team Providers Care Print Decorator Name Role Phone Yung Madrigal MD Unavailable Unavailable Winston Villatoro OD Unavailable [phone] Denise Woodson Ra, APRN SSIS SSRS DEVELOPER Unavailable + [phone] Denise Woodson Ra EVENT MANAGER SSIS SSRS DEVELOPER Primary Care Provid er Usha Simon EVENT MANAGER SSIS SSRS DEVELOPER Unavailable +[phone] Dangelo Salinas MD Unavailable Usha Simon EVENT MANAGER SSIS SSRS DEVELOPER Unavailable +- [phone] Anastasia Stearns RN Unavailable [phone] Germaine Lopez CHW Unavailable +[phone] Robin Zepeda MD Unavailable +[phone] Lisa Zambrano MD Unavailable + [phone] Raul Hoyos MD Unavailable Reason for Visit * Reason Onset Date Comments URI 09/21/2020 Encounter Details Date Type Department Care Team (Late st Contact Info) Description 09/21/2020 [facility] [address] [place] [address] Denise Woodson Ra, APRN SSIS SSRS DEVELOPER [address] [place] [address] URI Social History Tobacco Use [...] COVID-19? No / Unsure 09/21/2020 12:04 PM CONCRETE HOPPER OPERATOR documented as of this encounter Miscellaneous Notes * Telephone Encounter - Kati Yang RN - 09/21/2020 10:54 AM CST [employer] message sent to patient. Kati Yang RN RETE HOPPER OPERATOR documented in this encounter Plan of Treatment Upcoming Encounters Date Type Department Care Team (Late st Contact Info) Description 05/26/2024 8:30 AM CDT [facility] [address] [place] [phone] Denise Woodson Ra, EVENT MANAGER SSIS SSRS DEVELOPER [address] [place] [address] 06/08/2024 8:30 AM CDT Office Visit [facility] [address] [place] [phone] Denise Woodson Ra, EVENT MANAGER SSIS SSRS DEVELOPER [address] [place], [place] 3157068 documented as of this encounter Visit Diagnoses Not on filedocumented in this encounter Additional Health Concerns Assessment Noted Time PHQ-9 Depression Total Score: 0 06/15/20 19 7:09 PM CDT documented as of this encounter Care Teams Print Decorator Relationship Specialty Start Date End Date Yung Madrigal MD RETIRED PCP - Orthopaedics Orthopedics 08/26/12 01/20/24 Winston Villatoro OD [facility] [place] [address] [place] [address] PCP - Ophthalmology Ophthalmology 02/11/13 Denise Woodson Ra, APRN SSIS SSRS DEVELOPER [address] [place] [address] PCP - General Family Practice 09/21/20 Denise Woodson Ra, APRN SSIS SSRS DEVELOPER [address] [place] [address] Assigned PCP 07/17/20 Usha Simon APRN SSIS SSRS DEVELOPER [address] [place] [address] 134015 Nurse Practitioner Neurological Surgery 01/24/24 Dangelo Salinas MD [address] [facility] [address] [address] Neurology 01/27/24 Usha Simon APRN SSIS SSRS DEVELOPER [address] [place] [address] Assigned Neuroscience Provider 02/06/24 03/07/24 Anastasia Stearns, RN Lead Dry Clipper Tender 02/06/24 Germaine Lopez, CHW Community Health Worker Primary Care - CC 02/18/24 Robin Zepeda MD [address] [place] [address] Assigned Neuroscience Provider 03/08/24 05/07/24 Lisa Zambrano MD [address] [place] [address] Assigned Heart and Vascular Provider 05/08/24 Raul Hoyos MD 909 [facility] [id number] [place] [address] Assigned Neuroscience Provider 05/08/24 documented as of this encounter
--- OUTSIDE RECORDS SUMMARY | 2024-05-14 12:04 | XMS_ITS | Encounter Summary ---
Author Organization [place] Address [address] [place] [address] Care Team Providers Care Front Office Spec Name Role Phone Timmy Perez MD Unavailable Unavailable Yung Madrigal MD Unavailable Unavailable Frw, None Primary Care Provider Unavailabl e Winston Villatoro OD Unavailable [phone] Apple Sykes MD Primary Care Provider Unavailab Westley Vera MD Unavailable [phone] Alessandra Cabrales APRN SPINNING FRAME TENDER Primary Car e Provider Serum, Clara Garland MD Primary Care Provider Serum, Clara Garland MD Unavailable Serum, Clara Garland MD Unavailable [phone] Denise Woodson Ra, APRN SPINNING FRAME TENDER Unavailable + [phone] Denise Woodson Ra, APRN SPINNING FRAME TENDER Primary Care Provid er Usha Simon APRN SPINNING FRAME TENDER Unavailable + [phone] Dangelo Salinas MD Unavailable Usha Simon APRN SPINNING FRAME TENDER Unavailable + [phone] Anastasia Stearns RN Unavailable +[phone] Germaine Lopez CHW Unavailable [phone] Robin Zepeda MD Unavailable [phone] Lisa Zambrano MD Unavailable + [phone] Raul Hoyos MD Unavailable Encounter Details Date Type Department Care Team (Late st Contact Info) Description 01/30/2006 [facility] Inpatient Dept [address] [place] [address] Frw, Inpatient Provider Social History Tobacco Use [...] pain. PROCEDURE: TOTAL VAGINAL HYSTERECTOMY. SURGEON: Chris LABOR TRAINING MANAGER: Radha ANESTHESIA: Spinal ESTIMATED BLOOD LOSS: 100 [...] 05/26/2024 8:30 AM CDT [facility] [address] [place] [phone] Denise Woodson Ra, TOOLER SPINNING FRAME TENDER [address] [facility], [place] 34[address] 06/08/2024 8:30 AM CDT Office Visit [facility] [address] [place] [phone] Denise Woodson Ra, TOOLER SPINNING FRAME TENDER [address] [place], [place] 7016[address] documented as of this encounter Visit Diagnoses Not on filedocumented in this encounter Care Teams Front Office Spec Relationship Specialty Start Date End Date Timmy Perez MD PCP - Obstetrics/Gynecology 03/02/08 08/07/15 Yung Madrigal MD RETIRED PCP - Orthopaedics Orthopedics 08/26/12 01/20/24 Frw, None PCP - General Family Practice 08/26/12 05/03/13 Winston Villatoro OD [facility] [address] [place] [address] PCP - Ophthalmology Ophthalmology 02/11/13 Apple Sykes MD [facility] [place] [address] [place] [address] PCP - General Family Practice 05/04/13 10/25/16 Westley Bates MD XXX RETIRED [place] [address] [place] [address] PCP - ENT Otolaryngology 05/14/13 07/28/18 Alessandra Cabrales APRN SPINNING FRAME TENDER [address] [facility] [address] [place] [address] PCP - General Nurse Practitioner 10/26/16 02/06/17 Clara Cornell MD [address] [facility] [place] [place] [address] PCP - General Internal Medicine 02/07/17 09/20/20 Clara Cornell MD 8675 [place] [address] PCP - Assigned PCP 01/17/17 11/18/18 Denise Woodson Ra, APRN SPINNING FRAME TENDER [address] [place] [address] PCP - General Family Practice 09/21/20 Clara Cornell MD 8675 [facility] [place] [address] Assigned PCP 01/17/17 07/16/20 Denise Woodson Ra, APRN SPINNING FRAME TENDER [address] [place] [address] Assigned PCP 07/17/20 Usha Simon APRN SPINNING FRAME TENDER [address] [address] Nurse Practitioner Neurological Surgery 01/24/24 Dangelo Salinas MD [address] [place] [address] Neurology 01/27/24 Usha Simon APRN SPINNING FRAME TENDER [address] [address] Assigned Neuroscience Provider 02/06/24 03/07/24 Anastasia Stearns, RN Lead Thermal Cutter Helper 02/06/24 Germaine Lopez, W Community Health Worker Primary Care - CC 02/18/24 Robin Zepeda MD [address] [address] Assigned Neuroscience Provider 03/08/24 05/07/24 Lisa Zambrano MD [address] [place] [address] Assigned Heart and Vascular Provider 05/08/24 Raul Hoyos MD [address] [address] Assigned Neuroscience Provider 05/08/24 documented as of this encounter
--- OUTSIDE RECORDS SUMMARY | 2024-05-14 12:04 | XMS_ITS ---
Author Organization [place] Address [address] [place] [address] Care Team Providers Care Foreign Exchange Clerk Name Role Phone iWnston Villatoro OD Unavailable Denise Woodson Ra, APRN DOLLY PUSHER Unavailable Denise Woodson Ra, APRN DOLLY PUSHER Primary Care Provid er Usha Simon APRN DOLLY PUSHER Unavailable [phone] Dangelo Salinas MD Unavailable Anastasia Stearns RN Unavailable [phone] Germaine Lopez CHW Unavailable Lisa Zambrano MD Unavailable [phone] Raul Hoyos MD Unavailable [phone] Transitional Care Management Status:Closed (Closed) Start date:01/27/2024 Enrollment date:01/28/2024 End date:02/10/2024 Close reason:Goals met Continued Care and Services Coordination
--- OUTSIDE RECORDS SUMMARY | 2024-05-14 12:04 | XMS_ITS | Encounter Summary ---
Author Organization [facility] Address [address] [place] [address] Care Team Providers Care Snowmobile Mechanic Name Role Phone Timmy Perez MD Unavailable Unavailable Yung Madrigal MD Unavailable Unavailable Winston Villatoro OD Unavailable [phone] Apple Sykes MD Primary Care Provider Unavailab Westley Vera MD Unavailable [phone] Alessandra Cabrales APRN WINDOWS ARCHITECT Primary Car e Provider Serum, Clara Garland MD Primary Care Provider Serum, Clara Garland MD Unavailable [phone] Serum, Clara Garland MD Unavailable Denise Woodson Ra, APRN WINDOWS ARCHITECT Unavailable + [phone] Denise Woodson Ra, APRN WINDOWS ARCHITECT Primary Care Provid er Usha Simon APRN WINDOWS ARCHITECT Unavailable + [phone] Dangelo Salinas MD Unavailable Usha Simon APRN WINDOWS ARCHITECT Unavailable + [phone] Anastasia Stearns RN Unavailable +[phone] Germaine Lopez CHW Unavailable +[phone] Robin Zepeda MD Unavailable [phone] Lisa Zambrano MD Unavailable + [phone] Raul Hoyos MD Unavailable Encounter Details Date Type Department Care Team (Late st Contact Info) Description 05/19/2013 MyC Medical Advice [facility] [place] [facility] [address] [place] [phone] Yung Madrigal MD RETIRED Social History Tobacco [...] Office Visit [facility] [place] [address] [place] [phone] Denise Woodson Ra, MERCHANDISING COORDINATOR WINDOWS ARCHITECT [address] [place], [place] [address] 06/08/2024 8:30 AM CDT Office Visit [facility] [place] [address] [place] [address] Denise Woodson Ra, MERCHANDISING COORDINATOR WINDOWS ARCHITECT [address] [place], [place] 7980068 documented as of this encounter Visit Diagnoses Not on filedocumented in this encounter Care Teams Snowmobile Mechanic Relationship Specialty Start Date End Date Timmy Perez MD PCP - Obstetrics/Gynecology 03/02/08 08/07/15 Yung Madrigal MD RETIRED PCP - Orthopaedics Orthopedics 08/26/12 01/20/24 Winston Villatoro OD [facility] [address] [place] [address] PCP - Ophthalmology Ophthalmology 02/11/13 Apple Sykes MD [facility] [place] [address] [place] [address] PCP - General Family Practice 05/04/13 10/25/16 Westley Bates MD XXX RETIRED XXX [address] [place] [address] PCP - ENT Otolaryngology 05/14/13 07/28/18 Georgina-Alessandra Gómez APRN WINDOWS ARCHITECT [address] [place] [address] [place] [address] PCP - General Nurse Practitioner 10/26/16 02/06/17 Clara Cornell MD [address] [place] [address] [place] [address] PCP - General Internal Medicine 02/07/17 09/20/20 Clara Cornell MD [address] [place] [address] PCP - Assigned PCP 01/17/17 11/18/18 Denise Woodson Ra, APRN WINDOWS ARCHITECT [address] [place] [address] PCP - General Family Practice 09/21/20 Clara Cornell MD [address] [place] [address] Assigned PCP 01/17/17 07/16/20 Denise Woodson Ra, APRN WINDOWS ARCHITECT [address] [place] [address] Assigned PCP 07/17/20 Usha Simon APRN WINDOWS ARCHITECT [address] [address] Nurse Practitioner Neurological Surgery 01/24/24 Dangelo Salinas MD [address] [place] [address] Neurology 01/27/24 Usha Simon APRN WINDOWS ARCHITECT [address] [address] Assigned Neuroscience Provider 02/06/24 03/07/24 Anastasia Stearns, RN Lead Feed Mixer Helper 02/06/24 Germaine Lopez, [facility] Community Health Worker Primary Care - CC 02/18/24 Robin Zepeda MD [address] [address] Assigned Neuroscience Provider 03/08/24 05/07/24 Lisa Zambrano MD [address] [place] [address] Assigned Heart and Vascular Provider 05/08/24 Raul Hoyos MD [address] [address] Assigned Neuroscience Provider 05/08/24 documented as of this encounter
--- OUTSIDE RECORDS SUMMARY | 2024-05-14 12:04 | XMS_ITS | Encounter Summary ---
Author Organization [facility] Address [address] [place] [address]. [place] [address] Care Team Providers Care Trolley Operator Name Role Phone Timmy Perez MD Unavailable Unavailable Encounter Details Date Type Department Care Team (Late Contact Info) Description 01/17/2012 3:[address] [facility] in [address] [phone] Luis Walsh [address] [place] [address] Interface, Speech Clinician, Social History Tobacco Use Types Packs/Day Years [...] 8:30 AM CDT [facility] [address] [place] [address] Denise Woodson Ra, ODD JOBS DAY WORKER [facility] [address] [place], [place] 7476[address] 06/08/2024 8:30 AM CDT [facility] [address] [place] [address] Denise Woodson Ra, ODD JOBS DAY WORKER POWER BARKER OPERATOR [address] [place] [facility] [place] [address] documented as of this encounter Visit Diagnoses Not on filedocumented in this encounter Care Teams Trolley Operator Relationship Specialty Start Date End Date Timmy Perez MD PCP - Obstetrics/Gynecology 03/02/0807/18 documented as of this encounter
--- OUTSIDE RECORDS SUMMARY | 2024-05-14 12:04 | XMS_ITS ---
Author Organization [facility] Address [address] [place] [address] Care Team Providers Care Mortgage Funder Name Role Phone Winston Villatoro OD Unavailable Denise Woodson Ra, APRN SENIOR SYSTEMS ADMINISTRATOR Unavailable Denise Woodson Ra, APRN SENIOR SYSTEMS ADMINISTRATOR Primary Care Provid er Usha Simon ACCOUNTS RECEIVABLE ACCOUNTANT SENIOR SYSTEMS ADMINISTRATOR Unavailable [phone] Dangelo Salinas MD Unavailable Anastasia Stearns RN Unavailable Germaine Lopez Unavailable Lisa Zambrano MD Unavailable [phone] Raul Hoyos MD Unavailable Primary Care Care Coordination Status:Enrolled (Active) Start date:02/06/2024 Enrollment date:02/07/2024 Case Team Name Relationship Phone Anastasia Stearns RN Lead Campus President(Respons ible Staff) [phone] Germaine Lopez CHW Community Health Worker [phone] Continued Care and Services Coordination
--- OUTSIDE RECORDS SUMMARY | 2024-05-14 12:04 | XMS_ITS | Encounter Summary ---
Author Organization [facility] Address [address] [place] [address] Care Team Providers Care Management Psychologist Name Role Phone Timmy Perez MD Unavailable Unavailable Yung Madrigal MD Unavailable Unavailable Winston Villatoro OD Unavailable [phone] Apple Sykes MD Primary Care Provider Unavailab Westley Vera MD Unavailable [phone] Alessandra Cabrales APRN PULLMAN CAR CLERK Primary Car e Provider Serum, Clara Garland MD Primary Care Provider Serum, Clara Garland MD Unavailable [phone] Serum, Clara Garland MD Unavailable [phone] Denise Woodson Ra, APRN PULLMAN CAR CLERK Unavailable + [phone] Denise Woodson Ra, APRN PULLMAN CAR CLERK Primary Care Provid er Usha Simon APRN PULLMAN CAR CLERK Unavailable + [phone] Dangelo Salinas MD Unavailable Usha Simon APRN PULLMAN CAR CLERK Unavailable + [phone] Anastasia Stearns RN Unavailable +[phone] Germaine Lopez CHW Unavailable [phone] Robin Zepeda MD Unavailable [phone] Lisa Zambrano MD Unavailable + [phone] Raul Hoyos MD Unavailable Encounter Details Date Type Department Care Team (Late st Contact Info) Description 05/26/[address] [facility] [place] [facility] [address] [place] [phone] Yung Madrigal MD RETIRED Social History Tobacco [...] 8:30 AM CDT Office Visit [facility] [address] [place] [address] Denise Woodson Ra, RESIDENTIAL INSTRUCTOR PULLMAN CAR CLERK [address] [place], [place] [address] 06/08/2024 8:30 AM CDT Office Visit [facility] [address] [place] [address] Denise Woodson Ra, RESIDENTIAL INSTRUCTOR PULLMAN CAR CLERK [address] [place], [place] 7243868 documented as of this encounter Visit Diagnoses Not on filedocumented in this encounter Care Teams Management Psychologist Relationship Specialty Start Date End Date Timmy Perez MD PCP - Obstetrics/Gynecology 03/02/08 08/07/15 Yung Madrigal MD RETIRED PCP - Orthopaedics Orthopedics 08/26/12 01/20/24 Winston Villatoro OD [facility] [address] [place] [address] PCP - Ophthalmology Ophthalmology 02/11/13 Apple Sykes MD [facility] [place] [address] [place] [address] PCP - General Family Practice 05/04/13 10/25/16 Westley Bates MD XXX RETIRED XXX [address] [place] [address] PCP - ENT Otolaryngology 05/14/13 07/28/18 Georgina-Alessandra Gómez APRN PULLMAN CAR CLERK [address] [place] [address] [place] [address] PCP - General Nurse Practitioner 10/26/16 02/06/17 Clara Cornell MD [address] [place] [address] [place] [address] PCP - General Internal Medicine 02/07/17 09/20/20 Clara Cornell MD [address] [place] [address] PCP - Assigned PCP 01/17/17 11/18/18 Denise Woodson Ra, APRN PULLMAN CAR CLERK [address] [place] [address] PCP - General Family Practice 09/21/20 Clara Cornell MD [address] [place] [address] Assigned PCP 01/17/17 07/16/20 Denise Woodson Ra, APRN PULLMAN CAR CLERK [address] [place] [address] Assigned PCP 07/17/20 Usha Simon APRN PULLMAN CAR CLERK [address] [address] Nurse Practitioner Neurological Surgery 01/24/24 Dangelo Salinas MD [address] [place] [address] Neurology 01/27/24 Usha Simon APRN PULLMAN CAR CLERK [address] [address] Assigned Neuroscience Provider 02/06/24 03/07/24 Anastasia Stearns, RN Lead Casting House Worker 02/06/24 Germaine Lopez, [facility] Community Health Worker Primary Care - CC 02/18/24 Robin Zepeda MD [address] [address] Assigned Neuroscience Provider 03/08/24 05/07/24 Lisa Zambrano MD [address] [place] [address] Assigned Heart and Vascular Provider 05/08/24 Raul Hoyos MD [address] [address] Assigned Neuroscience Provider 05/08/24 documented as of this encounter
--- OUTSIDE RECORDS SUMMARY | 2024-05-14 12:04 | XMS_ITS | Encounter Summary ---
Author Organization [facility] Address [address] [place] [address] Care Team Providers Care Manager Custom Name Role Phone Timmy Perez MD Unavailable Unavailable Yung Madrigal MD Unavailable Unavailable Winston Villatoro OD Unavailable [phone] Apple Sykes MD Primary Care Provider Unavailab Westley Vera MD Unavailable [phone] Alessandra Cabrales APRN EPILEPSY PHYSICIAN Primary Car e Provider Serum, Clara Garland MD Primary Care Provider Serum, Clara Garland MD Unavailable Serum, Clara Garland MD Unavailable Denise Woodson Ra, APRN EPILEPSY PHYSICIAN Unavailable + [phone] Denise Woodson Ra, APRN EPILEPSY PHYSICIAN Primary Care Provid er Usha Simon APRN EPILEPSY PHYSICIAN Unavailable + [phone] Dangelo Salinas MD Unavailable Usha Simon APRN EPILEPSY PHYSICIAN Unavailable + [phone] Anastasia Stearns RN Unavailable [phone] Germaine Lopez CHW Unavailable [phone] Robin Zepeda MD Unavailable [phone] Lisa Zambrano MD Unavailable + [phone] Raul Hoyos MD Unavailable [phone] Encounter Details Date Type Department Care Team (Late st Contact Info) Description 05/06/2013 MyC Medical Advice in [facility] [address] [place] [phone] Apple Sykes MD Social History Tobacco Use [...] Description 05/26/2024 8:30 AM CDT Office Visit [facility] [address] [place] [address] Denise Woodson Ra, SEAMAN EPILEPSY PHYSICIAN [address] [place], [place] 9[address] 06/08/2024 8:30 AM CDT Office Visit [facility] [address] [place] [address] Denise Woodson Ra, SEAMAN EPILEPSY PHYSICIAN [address] [place] [address] documented as of this encounter Visit Diagnoses Not on filedocumented in this encounter Care Teams Manager Custom Relationship Specialty Start Date End Date Timmy Perez MD PCP - Obstetrics/Gynecology 03/02/08 08/07/15 Yung Madrigal MD RETIRED PCP - Orthopaedics Orthopedics 08/26/12 01/20/24 Winston Villatoro OD [facility] [address] [place] [address] PCP - Ophthalmology Ophthalmology 02/11/13 Apple Sykes MD [facility] [place] [address] [facility] [address] [place] [address] PCP - General Family Practice 05/04/13 10/25/16 Westley Bates MD XXX RETIRED XXX [address] [facility] [address] [place] [address] PCP - ENT Otolaryngology 05/14/13 07/28/18 GeorginaAlessandra Gómez APRN EPILEPSY PHYSICIAN [address] [facility] [place] [address] PCP - General Nurse Practitioner 10/26/16 02/06/17 Clara Cornell MD [address] [facility] [place] [address] PCP - General Internal Medicine 02/07/17 09/20/20 Clara Cornell MD [address] [place] [address] PCP - Assigned PCP 01/17/17 11/18/18 Denise Woodson Ra, APRN EPILEPSY PHYSICIAN [address] [place] [address] PCP - General Family Practice 09/21/20 Clara Cornell MD [address] [place] [address] Assigned PCP 01/17/17 07/16/20 Denise Woodson Ra, APRN EPILEPSY PHYSICIAN [address] [place] [address] Assigned PCP 07/17/20 Usha Simon APRN EPILEPSY PHYSICIAN [address] [address] Nurse Practitioner Neurological Surgery 01/24/24 Dangelo Salinas MD [address] [place] [address] Neurology 01/27/24 Usha Simon APRN EPILEPSY PHYSICIAN [address] [address] Assigned Neuroscience Provider 02/06/24 03/07/24 Anastasia Stearns, RN Lead Project Manager Finance 02/06/24 Germaine Lopez, [facility] Community Health Worker Primary Care - CC 02/18/24 Robin Zepeda MD [address] [address] Assigned Neuroscience Provider 03/08/24 05/07/24 Lisa Zambrano MD [address] [place] [address] Assigned Heart and Vascular Provider 05/08/24 Raul Hoyos MD [address] [address] Assigned Neuroscience Provider 05/08/24 documented as of this encounter
--- OUTSIDE RECORDS SUMMARY | 2024-05-14 12:04 | XMS_ITS | Encounter Summary ---
Author Organization [facility] Address [address] [place] [address] Care Team Providers Care Air Quality Chemist Name Role Phone Yung Madrigal MD Unavailable Unavailable Winston Villatoro OD Unavailable [phone] Serum, Clara Garland MD Primary Care Provider Serum, Clara Garland MD Unavailable [phone] Denise Woodson Ra MILK ROUTE DELIVERER MACHINE ADJUSTER LEADER Unavailable + [phone] Denise Woodson Ra MILK ROUTE DELIVERER MACHINE ADJUSTER LEADER Primary Care Provid er Usha Simon APRN MACHINE ADJUSTER LEADER Unavailable + [phone] Dangelo Salinas MD Unavailable Usha Simon MILK ROUTE DELIVERER MACHINE ADJUSTER LEADER Unavailable + [phone] Anastasia Stearns RN Unavailable +[phone] Germaine Lopez CHW Unavailable [phone] Robin Zepeda MD Unavailable [phone] Lisa Zambrano MD Unavailable + [phone] Raul Hoyos MD Unavailable Encounter Details Date Type Department Care Team (Late st Contact Info) Description 06/16/2019 [facility] [address] [facility] [address] [place] [address] Serum, Clara Garland MD [address] [place] [address] Social History Tobacco Use Types Packs/Day Years [...] Description 05/26/2024 8:30 AM CDT Office Visit [facility] [address] [place] [address] Denise Woodson Ra, MILK ROUTE DELIVERER MACHINE ADJUSTER LEADER [address] [place], [place] [address] 06/08/2024 8:30 AM CDT Office Visit [facility] [address] [place] [address] Denise Woodson Ra, MILK ROUTE DELIVERER MACHINE ADJUSTER LEADER [address] [place], [place] [address] documented as of this encounter Visit Diagnoses Not on filedocumented in this encounter Additional Health Concerns Assessment Noted Time PHQ-9 Depression Total Score: 0 06/15/20 19 7:09 PM CDT documented as of this encounter Care Teams Air Quality Chemist Relationship Specialty Start Date End Date Yung Mardigal MD RETIRED PCP - Orthopaedics Orthopedics 08/26/12 01/20/24 Winston Villatoro OD [facility] [address] [place] [address] PCP - Ophthalmology Ophthalmology 02/11/13 Clara Cornell MD [facility] [place] [address] [place] [address] PCP - General Internal Medicine 02/07/17 09/20/20 Denise Woodson Ra, APRN MACHINE ADJUSTER LEADER [address] [place] [address] PCP - General Family Practice 09/21/20 Clara Cornell MD 8675 [place] [address] Assigned PCP 01/17/17 07/16/20 Denise Woodson Ra, APRN MACHINE ADJUSTER LEADER [address] [place] [address] Assigned PCP 07/17/20 Usha Simon APRN MACHINE ADJUSTER LEADER [address] [place] [address] Nurse Practitioner Neurological Surgery 01/24/24 [place] [address] [place] [address] Neurology 01/27/24 Usha Simon APRN MACHINE ADJUSTER LEADER [address] [address] Assigned Neuroscience Provider 02/06/24 03/07/24 Anastasia Stearns, RN Lead Mergers And Acquisitions Consultant 02/06/24 Germaine Lopez, CHW Community Health Worker Primary Care - CC 02/18/24 Robin Zepeda MD [address] [place] [address] [place] [address] Assigned Neuroscience Provider 03/08/24 05/07/24 Lisa Zambrano MD [address] [place] [address] Assigned Heart and Vascular Provider 05/08/24 Raul Hoyos MD [address] [facility] [place] [address] Assigned Neuroscience Provider 05/08/24 documented as of this encounter
--- OUTSIDE RECORDS SUMMARY | 2024-05-14 12:04 | XMS_ITS | Encounter Summary ---
Author Organization [facility] Address [address] [place] [address] Care Team Providers Care Vinyl Flooring Installer Name Role Phone Timmy Perez MD Unavailable Unavailable Yung Madrigal MD Unavailable Unavailable Frw, None Primary Care Provider Unavailabl e Winston Villatoro OD Unavailable [phone] Apple Sykes MD Primary Care Provider Unavailab Westley Vera MD Unavailable Alessandra Cabrales APRN TABULAR TYPIST Primary Car e Provider Serum, Clara Garland MD Primary Care Provider Serum, Clara Garland MD Unavailable [phone] Serum, Clara Garland MD Unavailable [phone] Denise Woodson Ra, APRN TABULAR TYPIST Unavailable + [phone] Denise Woodson Ra, APRN TABULAR TYPIST Primary Care Provid er Usha Simon APRN TABULAR TYPIST Unavailable + [phone] Dangelo Salinas MD Unavailable Usha Simon APRN TABULAR TYPIST Unavailable + [phone] Anastasia Stearns RN Unavailable +[phone] Germaine Lopez CHW Unavailable [phone] Robin Zepeda MD Unavailable +[phone] Lisa Zambrano MD Unavailable + [phone] Raul Hoyos MD Unavailable Encounter Details Date Type Department Care Team (Late st Contact Info) Description 01/31/2006 [facility] [place] [address] [place] [phone] Timmy Perez MD Social History Tobacco Use [...] AM CDT [facility] [address] [place] [phone] Denise Woodson Ra, SPEECH PATHOLOGY SUPERVISOR TABULAR TYPIST [address] [place], [place] 148[address] 06/08/2024 8:30 AM CDT Office Visit [facility] [address] [place] [phone] Denise Woodson Ra, SPEECH PATHOLOGY SUPERVISOR TABULAR TYPIST [address] [place], [place] [phone] documented as of this encounter Visit Diagnoses Not on filedocumented in this encounter Care Teams Vinyl Flooring Installer Relationship Specialty Start Date End Date Timmy Perez MD PCP - Obstetrics/Gynecology 03/02/08 08/07/15 Yung Madrigal MD RETIRED PCP - Orthopaedics Orthopedics 08/26/12 01/20/24 Frw, None PCP - General Family Practice 08/26/12 05/03/13 Winston Villatoro OD [facility] [place] [address] [place] [address] PCP - Ophthalmology Ophthalmology 02/11/13 Apple Sykes MD [facility] [place] [address] [place] [address] PCP - General Family Practice 05/04/13 10/25/16 Westley Bates MD XXX RETIRED XXX [address] [place] [address] PCP - ENT Otolaryngology 05/14/13 07/28/18 Alessandra Cabrales APRN TABULAR TYPIST [facility] [place] [address] PCP - General Nurse Practitioner 10/26/16 02/06/17 Clara Cornell MD [address] [place] [address] [place] [address] PCP - General Internal Medicine 02/07/17 09/20/20 Clara Cornell MD [address]75 [place] [address] PCP - Assigned PCP 01/17/17 11/18/18 Denise Woodson Ra, APRN TABULAR TYPIST [address] [place] [address] PCP - General Family Practice 09/21/20 Clara Cornell MD [address] [place] [address] Assigned PCP 01/17/17 07/16/20 Denise Woodson Ra, APRN TABULAR TYPIST [address] [place] [address] Assigned PCP 07/17/20 Usha Simon APRN TABULAR TYPIST [address] [address] Nurse Practitioner Neurological Surgery 01/24/24 Dangelo Salinas MD [address] [place] [address] Neurology 01/27/24 Usha Simon APRN TABULAR TYPIST [address] [address] Assigned Neuroscience Provider 02/06/24 03/07/24 Anastasia Stearns, RN Lead Insulation Helper 02/06/24 Germaine Lopez, [facility] Community Health Worker Primary Care - CC 02/18/24 Robin Zepeda MD [address] [address] Assigned Neuroscience Provider 03/08/24 05/07/24 Lisa Zambrano MD [address] [place] [address] Assigned Heart and Vascular Provider 05/08/24 Raul Hoyos MD [address] [address] Assigned Neuroscience Provider 05/08/24 documented as of this encounter
[2024-05-14 12:05] LABS: Slide Review Reflex No
[2024-05-14 12:24] LABS: Albumin* 4.8 g/dL (3.3-5.0); Chloride* 106 mmol/L (96-114); D Dimer Quantitative* 0.42 ug/ml (0.00-0.50); Potassium* 4.1 mmol/L (3.6-5.1); Sodium* 140 mmol/L (135-149)
[2024-05-14 12:26] LABS: Creatinine* 0.7 mg/dL (0.5-1.5); Est. Creatinine Clearance* 100.22; Estimated Glomerular Filt Rate 107 ml/min; Magnesium* 2.1 mg/dL (1.5-2.6)
[2024-05-14 12:27] LABS: Alanine Aminotransferase* 16 U/L (4-35); Alkaline Phosphatase* 71 U/L (40-150); Anion Gap 7 mEq/L (7-15); Aspartate Amino Transferase* 24 U/L (12-35); Blood Urea Nitrogen* 14 mg/dL (5-24); Carbon Dioxide* 27 mmol/L (20-32); Glucose* 87 mg/dL (60-115); Total Protein* 8.1 g/dL (6.0-8.3)
[2024-05-14 12:28] LABS: Calcium* 9.9 mg/dL (8.4-10.6)
[2024-05-14 12:30] LABS: C Reactive Protein* 0.7 mg/dL (0.5-1.0)
[2024-05-14 12:36] LABS: NT Pro B Type NatriureticPept* 170 pg/mL
[2024-05-14 12:38] LABS: Troponin I* < 0.01 ng/mL (0.01-0.04)
[2024-05-14 12:51] LABS: Erythrocyte SedimentationRate* 14 mm/hr (2-20)
--- NOTE | 2024-05-14 13:29 | CRLHL7_ITS ---
For Patients: As a result of the Century Cures Act, medical imaging exams and procedure reports are released immediately into your electronic medical record. You may view this report before your referring provider. If you have questions, please contact your health care provider. INDICATION: Chest pain and normal troponins TECHNIQUE: CT chest, abdomen and pelvis acquired with initial noncontrast followed by 95 cc Isovue 370 intravenous contrast. COMPARISON: None. FINDINGS: CHEST: Cardiovascular structures: Noncontrast images show no evidence of intramural hematoma. Status post atrial septal defect repair. The great vessels are unremarkable. Thoracic aorta is normal in caliber. No pericardial effusion. Pulmonary artery unremarkable. Abdominal aorta is normal in caliber. Inferior mesenteric, superior mesenteric and celiac arteries are unremarkable. Renal arteries unremarkable with 2 left renal arteries noted. Bilateral common, internal and external iliac arteries unremarkable. Mediastinum and uvaldo: No enlarged mediastinal lymph nodes. Lungs and pleura: No pleural effusion or pneumothorax. Biapical pleural-parenchymal scarring. Mild centrilobular emphysema. Air trapping within the lateral segment of the right middle lobe scattered areas of discoid atelectasis. Chest wall and axilla: No mass or adenopathy. Bones: No suspicious bone lesions. Unremarkable for age. ABDOMEN AND PELVIS: Liver: Unremarkable. Gallbladder and bile ducts: Status post cholecystectomy. Pancreas: Unremarkable. Spleen: Unremarkable. Adrenal glands: Unremarkable. Kidneys: 8 millimeter cyst right kidney. GI tract: The stomach is unremarkable. No dilated loops of large or small intestine. Appendix unremarkable. Mild colonic diverticulosis. Vascular structures: Unremarkable. Miscellaneous: Unremarkable. No free air or significant free fluid. Pelvic Organs: Status post hysterectomy. Bones: No suspicious bone lesions. Unremarkable for age. IMPRESSION: 1. No evidence of aortic dissection or aneurysm. 2. Underlying centrilobular emphysema with some areas of discoid atelectasis as well as prominent air trapping within the lateral segment of the right middle lobe. Question small airways disease. 3. Colonic diverticulosis. Please note that all CT scans at this facility use dose modulation, iterative reconstruction, and/or weight-based dosing when appropriate to reduce radiation dose to as low as reasonably achievable. Dictated by Abe Reaves MD @ 05/14/2024 2:27:37 PM (Electronically Signed)
[2024-05-14] MEDS: ONDANSETRON 2 MG/ML inj 4 MG IVP ×2 (14:08→15:25)
[2024-05-14] MEDS: MORPHINE 4 MG/ML INJ IVP (14:10)
[2024-05-14] MEDS: 0.9 % SODIUM CHLORIDE 500 ML 500 ML IV (15:25)
[2024-05-14] MEDS: KETOROLAC 30 MG/ML inj IVP (18:10)
== END 2024-05-14 20:08 | disposition short-term general hospital (02) ==
PROVIDERS: Emergency Provider Family Medicine
DX: R07.9 Chest pain, unspecified (principal); R94.31 Abnormal electrocardiogram [ECG] [EKG]
CPT/HCPCS: 36415; 71045; 71275; 74174; 80053; 83605; 83735; 83880; 84484; 85025; 85379; 85651; 86140; 93005; 94761; 96374; 96375; 99285; J1885; J2270; J2405; J7030; Q9967

== ENCOUNTER 2024-05-14 20:02 | Outpatient (CLI) | payer OTHER, SELFPAY ==
--- OUTSIDE RECORDS SUMMARY | 2024-05-17 01:20 | XMS_ITS ---
Author Organization [facility] Address [address] [place] [address] Care Team Providers Care Literacy Consultant Name Role Phone Unavailable Unavailable Unavailable Surgery Details Not on file Complications Check Surgery Details section. Procedure Estimated Blood Loss Check Surgery Details section. Procedure Findings Check Surgery Details section. Procedure Specimens Taken Check Surgery Details section.
--- OUTSIDE RECORDS SUMMARY | 2024-05-17 01:20 | XMS_ITS | Referral Summary ---
Author Organization [facility] Address [address] [place] [address] Care Team Providers Care Parboiler Name Role Phone Darius Shaw M.D. Primary Care Provider [phone] Source Comments Patient records contain information from all sites at [facility]. For routine questions regarding patient records, call [phone] during business hours, M-F 8:00 AM - 5:00 PM Central Time. Record requests for emergency care only can be directed to [phone] at any time.[facility] Allergies Active Allergy Reactions Criticality Noted [...] week 01/10/2023 How often do you attend voodoo or anabaptist serv ices? Never 01/10/2023 Do you belong [...] Answer Date Recorded PHQ-2 Score 3 01/10/2023 [facility] of Occupat [...] place to sleep or slept in a fci (including now)? No 01/10/2023 Depression Answer Date [...] on file Medical Devices Implanted Type Area Farmer Cash Grain Device Identifier Shelf Expiration Date Model / Serial / Lot Mesh Or Patch Mesh or Patch Heart Description:Amplatzer Septal Occluder Asd Closure Device 34mm - Sanders [id number] Implanted:Qty: 1 on 06/20/2006 Septal Defect Occluder Device Other/Legacy - See Implant Description Description:Device Manufactu rer - [employer]. Device Status Text - [id number]. Procedures Procedure Name Priority Date/Time Associated Diagnosis Comments BI BREAST SCREENING BILATERAL WITH TOMOSYNTHESIS RAD - Routine (most inpatients and all outpatients) 07/30/2023 2:38 PM CORPORATE TREASURY ANALYST Screening Mammogram Breast Cancer COLOGUARD Routine 10/28/2022 5:54 PM CORPORATE TREASURY ANALYST Screening Cancer Colon VBG & LYTES CG8+, POCT, B Routine 09/30/2022 10:38 AM CORPORATE TREASURY ANALYST LIPID PANEL, S Routine 02/13/2018 6:56 AM CDT Lizy Danlos Syndrome Chronic Obstructive Pulmonary Disease (HCC) Defect Atrial Septal (HCC) from Last 3 Months or Most Recently Relevant to Health Maintenance Results * BI Breast Screening Bilateral with Tomosynthesis (07/30/2023 2:38 PM CORPORATE TREASURY ANALYST) Anatomical Region Laterality Modality Breast, Breast Imaging RST L OS, Breast Imaging ARZ LOS, Breast Imaging FLA LOS Bilateral Mammography 08/01/2023 12:2 8 PM CORPORATE TREASURY ANALYST Impressions 08/01/2023 12:33 PM CORPORATE TREASURY ANALYST Negative. RECOMMENDATION: ??Annual Screening Mammogram ASSESSMENT: ??BI-RADS: 1: Negative. Narrative 08/01/2023 12:33 PM CORPORATE TREASURY ANALYST EXAM: ??BI BREAST SCREENING BILATERAL WITH TOMOSYNTHESIS [...] ASSESSMENT: BI-RADS: 1: Negative. Darius Shaw M.D. [facility] BI PROCEDURES * Cologuard-Sent Out Lab (10/28/2022 5:54 PM CORPORATE TREASURY ANALYST) Result Negative Negative 11/03/2022 2:48 AM CORPORATE TREASURY ANALYST EX[facility] Comment: NEGATIVE TEST RESULT. A negative [...] Gates et al, N Engl J Med 2014;370(14):5822-8725) The normal value (reference range) for this assay is negative. COLOGUARD RE-SCREENING RECOMMENDATION: Periodic colorectal cancer screening is an important part of preventive healthcare for asymptomatic individuals at average risk for colorectal cancer. ??Following a negative Cologuard result, the [place] Cancer Society and U.S. Multi-Society Task Force screening guidelines recommend a Cologuard re-screening interval of 3 years. References: [place] [employer] Guideline for Colorectal Cancer Screening: https://www.cancer.org/cancer/nvjra-oufker-nykdfb/detection- diagnosis-staging/acs-recommendations.html.; Ming DK, Barbra CR, Erna SimsK, Colorectal Cancer Screening: Recommendations for Physicians and Patients from the U.S. Multi-Society Task Force on Colorectal Cancer Screening , Am J Gastroenterology 2017; 112:4332-2648. TEST DESCRIPTION: Composite algorithmic analysis of stool [...] Gates et al, N Engl J Med 2014;370(14):6648-3671.) Cologuard may produce a false negative or false positive result (no colorectal cancer or precancerous polyp present at colonoscopy follow up). A negative Cologuard test result does not guarantee the absence of CRC or advanced adenoma (pre-cancer). The current Cologuard screening interval is every 3 years. ([place] Cancer Society and U.S. Multi-Society Task Force). Cologuard performance data in a 10,000 patient pivotal study using colonoscopy as the reference method can be accessed at the following location: www.db4objects/results. Additional description of the Cologuard test process, warnings and precautions can be found at www.[employer] aka 3Ditizerd.com. Stool (Stool) 10/28/2022 5:5 4 PM CORPORATE TREASURY ANALYST 10/30/2022 1:57 PM CORPORATE TREASURY ANALYST Darius Shaw M.D. LAB BODY FLUIDS AND STOOLS ORDERABLES [employer] [address] [place] [id number] EXLI [employer] [address] [place] [address], [address] [place] [address] * (ABNORMAL) Lipid Panel (02/13/2018 6:56 AM CDT) Cholesterol, Total 200(H) mg/dL 02/13/2018 8:08 AM CDT [facility] Comment: ----REFERENCE VALUE---- Desirable: < 200 Borderline high: 200 - 239 High: > or = 240 Triglycerides 143 mg/dL 02/13/2018 8:08 AM CDT [facility] Comment: ----REFERENCE VALUE---- Normal: <150 Borderline high: 150-199 High: 200-499 Very high: > or =500 Cholesterol, HDL, S 49(L) >=50 mg/dL 02/13/2018 8:08 AM CDT [facility] Calculated LDL 122 mg/dL 02/13/2018 8:08 AM CDT [facility] Comment: ----REFERENCE VALUE---- Desirable: <100 Above Desirable: 100-129 Borderline high: 130-159 High: 160-189 Very high: > or =190 Cholesterol, Non-HDL, Calculated 151 mg/dL 02/13/2018 8:08 AM CDT [facility] Comment: ----REFERENCE VALUE---- Desirable: <130 Above Desirable: 130-159 Borderline high: 160-189 High: 190-219 Very high: > or =220 Blood 02/13/2018 6:56 AM CDT 02/13/2018 7:18 AM CDT Dominique Mcgowan M.D. LAB BLOOD ADD- ON [facility] [address] [place], [place] [address] from Last 3 Months or Most Recently Relevant to Health Maintenance Advance Directives For more information, please contact: [phone] * Full Code (Latest Code Status on File) Date Activated Date Inactivated Comments 09/30/2022 4:41 PM 10/02/2022 6:08 PM Question Answer Comments Full Code: Discussed Care Teams Parboiler Relationship Specialty Start Date End Date Darius Shaw M.D. [address] [place] [phone] PCP - General Family Medicine 09/27/22
--- OUTSIDE RECORDS SUMMARY | 2024-05-17 01:20 | XMS_ITS | Clinical Summary ---
Author Organization [facility] Address [address] [place] [address] Care Team Providers Care Acoustic Intelligence Specialist Name Role Phone Darius Shaw M.D. Primary Care Provider [phone] Source Comments Patient records contain information from all sites at [facility]. For routine questions regarding patient records, call [phone] during business hours, M-F 8:00 AM - 5:00 PM Central Time. Record requests for emergency care only can be directed to [phone] at any time.[facility] Allergies Active Allergy Reactions Criticality Noted [...] week 01/10/2023 How often do you attend buddhism or pentecostal serv ices? Never 01/10/2023 Do you belong [...] Score 3 01/10/2023 [facility] - Occupational Stress Questionnaire Answer Date Recorded [...] place to sleep or slept in a mcc (including now)? No 01/10/2023 Depression Answer Date [...] 11/07/2011, 10/04/2011 Medical Devices Implanted Type Area Glass Presser Device Identifier Shelf Expiration Date Model / Serial / Lot Mesh Or Patch Mesh or Patch Heart Description:Amplatzer Septal Occluder Asd Closure Device 34mm - Sanders [id number] Implanted:Qty: 1 on 06/20/2006 Septal Defect Occluder Device Other/Legacy - See Implant Description Description:Device Manufactu [facility]. Device Status Text - [id number]. Procedures Procedure Name Priority Date/Time Associated Diagnosis Comments BI BREAST SCREENING BILATERAL WITH TOMOSYNTHESIS RAD - Routine (most inpatients and all outpatients) 07/30/2023 2:38 PM ANODISER Screening Mammogram Breast Cancer COLOGUARD Routine 10/28/2022 5:54 PM ANODISER Screening Cancer Colon VBG & LYTES CG8+, POCT, B Routine 09/30/2022 10:38 AM ANODISER LIPID PANEL, S Routine 02/13/2018 6:56 AM CDT Lizy Danlos Syndrome Chronic Obstructive Pulmonary Disease (HCC) Defect Atrial Septal (HCC) from Last 3 Months or Most Recently Relevant to Health Maintenance Results * BI Breast Screening Bilateral with Tomosynthesis (07/30/2023 2:38 PM ANODISER) Anatomical Region Laterality Modality Breast, Breast Imaging RST L OS, Breast Imaging ARZ LOS, Breast Imaging FLA LOS Bilateral Mammography 08/01/2023 12:2 8 PM ANODISER Impressions 08/01/2023 12:33 PM ANODISER Negative. RECOMMENDATION: ??Annual Screening Mammogram ASSESSMENT: ??BI-RADS: 1: Negative. Narrative 08/01/2023 12:33 PM ANODISER EXAM: ??BI BREAST SCREENING BILATERAL WITH TOMOSYNTHESIS [...] * Cologuard-Sent Out Lab (10/28/2022 5:54 PM ANODISER) [employer] Signature Result Negative Negative 11/03/2022 2:48 AM ANODISER EX[facility] Comment: NEGATIVE TEST RESULT. A negative [...] (Yenny Adkins al, N Engl J Med 2014;370(14):4796-0489) The normal value (reference range) for this assay is negative. COLOGUARD RE-SCREENING RECOMMENDATION: Periodic colorectal cancer screening is an important part of preventive healthcare for asymptomatic individuals at average risk for colorectal cancer. ??Following a negative Cologuard result, the [place] Cancer Society and U.S. Multi-Society Task Force screening guidelines recommend a Cologuard re-screening interval of 3 years. References: [place] [employer] Society Guideline for Colorectal Cancer Screening: https://www.cancer.org/cancer/kgzhz-aptbuw-edpcvm/detection- diagnosis-staging/acs-recommendations.html.; Ming DK, Barbra CR, Erna SimsK, Colorectal Cancer Screening: Recommendations for Physicians and Patients from the U.S. Multi-Society Task Force on Colorectal Cancer Screening , Am J Gastroenterology 2017; 112:3893-1516. TEST DESCRIPTION: Composite algorithmic analysis of stool [...] (Yenny Adkins al, N Engl J Med 2014;370(14):1602-0248.) Cologuard may produce a false negative or false positive result (no colorectal cancer or precancerous polyp present at colonoscopy follow up). A negative Cologuard test result does not guarantee the absence of CRC or advanced adenoma (pre-cancer). The current Cologuard screening interval is every 3 years. ([place] Cancer Society and U.S. Multi-Society Task Force). Cologuard performance data in a 10,000 patient pivotal study using colonoscopy as the reference method can be accessed at the following location: www.Shook/results. Additional description of the Cologuard test process, warnings and precautions can be found at www.cologCleverrd.com. Stool (Stool) 10/28/2022 5:5 4 PM ANODISER 10/30/2022 1:57 PM ANODISER Darius Shaw M.D. LAB BODY FLUIDS AND STOOLS ORDERABLES [facility] [employer] [address] [place] [address] EXLI [employer] [address], [address] [place] [address] * (ABNORMAL) Lipid Panel (02/13/2018 6:56 AM CDT) Cholesterol, Total 200(H) mg/dL 02/13/2018 8:08 AM CDT [facility] Comment: ----REFERENCE VALUE---- Desirable: < 200 Borderline high: 200 - 239 High: > or = 240 Triglycerides 143 mg/dL 02/13/2018 8:08 AM CDT [facility] Comment: ----REFERENCE VALUE---- Normal: <150 Borderline high: 150-199 High: 200-499 Very high: > or =500 Cholesterol, HDL, S 49(L) >=50 mg/dL 02/13/2018 8:08 AM CDT [facility] Calculated LDL 122 mg/dL 02/13/2018 8:08 AM CDT [facility] Comment: ----REFERENCE VALUE---- Desirable: <100 Above Desirable: 100-129 Borderline high: 130-159 High: 160-189 Very high: > or =190 Cholesterol, Non-HDL, Calculated 151 mg/dL 02/13/2018 8:08 AM CDT [facility] Comment: ----REFERENCE VALUE---- Desirable: <130 Above Desirable: 130-159 Borderline high: 160-189 High: 190-219 Very high: > or =220 Blood 02/13/2018 6:56 AM CDT 02/13/2018 7:18 AM CDT Dominique Mcgowan M.D. LAB BLOOD ADD- ON [facility] [address] [place] [address], [facility] from Last 3 Months or Most Recently Relevant to Health Maintenance Advance Directives For more information, please contact: [phone] * Full Code (Latest Code Status on File) Date Activated Date Inactivated Comments 09/30/2022 4:41 PM 10/02/2022 6:08 PM Question Answer Comments Full Code: Discussed Care Teams Acoustic Intelligence Specialist Relationship Specialty Start Date End Date Darius Shaw M.D. [address] [place] [phone] PCP - General Family Medicine 09/27/22
--- OUTSIDE RECORDS SUMMARY | 2024-05-17 01:21 | XMS_ITS | Clinical Summary ---
Author Organization [facility] Address [address] [place] [id number] Care Team Providers Care Skein Tier Name Role Phone ShaunaWinston moralez OD Unavailable [phone] Denise Woodson Ra, APRN SAFETY DEPOSIT SUPERVISOR Unavailable [phone] Denise Woodson Ra, APRN SAFETY DEPOSIT SUPERVISOR Primary Care Provid er Usha Simon APRN SAFETY DEPOSIT SUPERVISOR Unavailable [phone] Dangelo Salinas MD Unavailable Anastasia Stearns RN Unavailable Germaine Lopez CHW Unavailable Lisa Zambrano MD Unavailable [phone] Raul Hoyos MD Unavailable [phone] Allergies Active Allergy Reactions Criticality Noted Date Comments Bupropion GI Disturbance,Other (See Comments) Low 01/19/2011 Diarrhea and stomach ache Codeine GI Disturbance High 09/23/2022 Other Reaction(s): epigastric pain Erythromycin GI Disturbance Low 12/27/2005 Mold Dizziness,GI Disturbance 08/22/2012 Morphine GI Disturbance 05/15/2024 Medications Medication Sig Dispensed Refills Start Date End Date Status albuterol (PROAIR HFA/PROVENTIL HFA/VENTOLIN HFA) 108 (90 Base) MCG/ACT inhalerIndication s:Moderate persistent asthma without complication Inhale 2 puffs into the lungs every 4 hours as needed for shortness of breath / dyspnea or wheezing 1 Inhaler 3 07/13/20 20 Suspended Additional Information traZODone (DESYREL) 50 MG tabletIndications :Insomnia, unspecified type Take 2 tablets (100 mg) by mouth At Bedtime 180 tablet 3 07/27/20 21 Suspended Additional Information BREO ELLIPTA 200-25 MCG/INH InhalerIndication s:Moderate persistent asthma without complication INHALE 1 PUFF INTO THE LUNGS DAILY 3 each 1 02/23/20 22 Suspended Additional Information cetirizine (ZYRTEC) 10 MG tablet Take 10 mg by mouth at bedtime. Suspended psyllium (METAMUCIL) 28.3 % packet Take 1 packet by mouth daily Suspended Lidocaine (LIDOCARE) 4 % PatchIndications: Fibromyalgia,Pain of right upper extremity Place 1 patch onto the skin every 24 hours To prevent lidocaine toxicity, patient should be patch free for 12 hrs daily. 01/22/20 24 Suspended Additional Information Patient taking differently:1 patch TransdermalDAILY PRN, To prevent lidocaine toxicity, patient should be patch free for 12 hrs daily., Reported on 05/14/2024 senna-docusate (SENOKOT-S/JIMMY LACE) 8.6-50 MG tabletIndications :Other constipation Take 2 tablets by mouth 2 times daily as needed for constipation 01/22/20 Suspended Additional Information methyl salicylate-mentho l (ICY HOT) ointmentIndicatio ns:Fibromyalgia,P ain of right upper extremity Apply topically every 6 hours as needed (pain) 01/22/20 24 Suspended Additional Information acetaminophen (TYLENOL) 500 MG tabletIndications :Fibromyalgia,Tony n of right upper extremity Take 1-2 tablets (500-1,000 mg) by mouth 3 times daily as needed for mild pain or headaches 01/24/20 24 Suspended Additional Information magnesium oxide 200 MG TABS Ok to take magnesium supplement of your preference 01/24/20 24 024 Discontinued (Med Rec(No AVS / No eCancel)) meclizine (ANTIVERT) 25 MG tablet Take 1 tablet (25 mg) by mouth 3 times daily as needed for dizziness 20 tablet 02/13/20 24 Suspended Additional Information aspirin (ASA) 325 MG EC tabletIndications :Cerebrovascular accident (CVA), unspecified mechanism (H) Take 1 tablet (325 mg) by mouth daily 30 tablet 02/14/20 24 Suspended Additional Information Patient taking differently: 162 mgOral DAILY, Reported on 05/14/2024 rosuvastatin (CRESTOR) 20 MG tabletIndications :Cerebrovascular accident (CVA), unspecified mechanism (H) TAKE 1 TABLET (20 MG) BY MOUTH AT BEDTIME 90 tablet 03/06/20 24 Suspended Additional Information LORazepam (ATIVAN) 1 MG tabletIndications :History of seizure Take 1/2-1 tablet daily as needed for onset of dizziness. 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 Suspended omeprazole (PRILOSEC) [address] capsuleIndication s:Gastroesophagea l reflux disease with esophagitis without hemorrhage Take 1 capsule (20 mg) by mouth daily. 30 capsule 05/15/20 24 024 Discontinued (Stop at Discharge) Active Problems Problem Noted Date Diagnosed Date Chest pain, unspecified type 05/16/2024 Gastroesophageal reflux dise ase with esophagitis without hemorrhage 05/16/2024 Chest pain 05/14/2024 Pain of right upper extremity 01/22/2024 Fibromyalgia [...] Encounters Date Type Department Care Team Description 05/15/2024 MyC Medical Advice [facility] [address] 3rd [place] [address] Stacey Kelley RN 05/15/[address] [address] Denise Woodson Ra, TECHNOLOGY INTERNSHIP SAFETY DEPOSIT SUPERVISOR Forms (disability) 05/14/2024 9:06 PM CDT - Present Hospital Encounter [facility] Neuroscience Unit [address] [facility] [place] [address] Vlad Rehman MD Yang, Johnathone, MD Gastroesophageal reflux disease with esophagitis without hemorrhage (Primary Dx); Chest pain, unspecified type; Dural arteriovenous fistula; History of seizure; History of stroke; Pain of right upper extremity 05/13/2024 MyC Medical Advice Initial Department [facility] 05/13/2024 MyC Medical Advice Initial Department [facility] 05/13/2024 Telephone [facility] Epilepsy Care [address], [address] [place] [address] Rohit Barcenas MD 05/13/2024 MyC Medical Advice [facility] Care Coordination [address] [place] [address] Anastasia Stearns RN 05/12/2024 5:25 PM CDT - 05/12/2024 6:59 PM CDT Emergency [facility] Emergency Dept [address] [place] [phone] Chinedu Moon MD Discharge Disposition: Left Without Being Seen 05/12/2024 Travel 05/12/2024 Telephone [facility] [address] [place] [phone] Denise Woodson Ra, TECHNOLOGY INTERNSHIP SAFETY DEPOSIT SUPERVISOR 05/12/2024 MyC Medical Advice [facility] [address] [place] [phone] Denise Woodson Ra, TECHNOLOGY INTERNSHIP SAFETY DEPOSIT SUPERVISOR Forms ([employer] - Disabi... 05/12/2024 Telephone [facility] [place] [address] [facility] 3rd [place] [address] Raul Hoyos MD Symptoms (Stroke symptoms per pt ) 05/12/2024 Telephone [facility] [address] [place] [phone] Denise Woodson Ra, TECHNOLOGY INTERNSHIP SAFETY DEPOSIT SUPERVISOR 05/11/2024 MyC Medical Advice [facility] [address] [place] [phone] Denise Woodson Ra, TECHNOLOGY INTERNSHIP SAFETY DEPOSIT SUPERVISOR 05/10/2024 10:48 AM CDT - 05/11/2024 12:03 AM CDT Emergency [facility] Emergency Department [address] [place] [phone] Todd Osborn MD Hackner, Michelle C, MD Intractable headache, unspecified chronicity pattern, unspecified headache type; Dizziness Discharge Disposition: Home or Self Care 05/10/2024 Travel 05/08/2024 MyC Medical Advice [facility] [place] [address] [facility] [address]rd [place] [address] Robin Zepeda MD 05/06/2024 MyC Medical Advice [facility] Epilepsy [facility] [address], [address] [place] [address] Rohit Barcenas MD 05/05/2024 2:30 PM CDT Office Visit [facility] Epilepsy [facility] [address], [address] [place] [address] Rohit Barcenas MD 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 [phone] Lisa Zambrano MD Fibromuscular dysplasia (H24) ?? 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[place] [address] 05/01/2024 Travel 04/30/2024 Travel 04/30/2024 Refill [facility] [address] [place] [address] Denise Woodson Ra, APRN SAFETY DEPOSIT SUPERVISOR Medication Refill 04/28/2024 Travel 04/27/2024 Telephone [facility] [address] [place] [phone] Denise Woodson Ra, APRN SAFETY DEPOSIT SUPERVISOR Medication Refill 04/15/2024 9:30 AM CDT Therapy Visit [facility] [address] [phone] Danya You, PA Danya Restrepo, COMPLIANCE ASSOCIATE Cognitive communication deficit (Primary Dx); Cerebrovascular accident (CVA), unspecified mechanism (H) 04/15/2024 8:45 AM CDT Therapy Visit [address] [phone] Denise Woodson Ra, APRN CNP Peterson, Megan A, OTR Cerebrovascular accident (CVA), unspecified mechanism (H) (Primary Dx) 04/15/2024 Travel 04/14/2024 9:30 AM CDT Virtual Visit [facility] [address] [place] [address] Raul Hoyos MD History of CVA (cerebrovascular accident) (Primary Dx); Fibromuscular dysplasia (H24) 04/14/2024 Travel 04/14/2024 Telephone [facility] [place] [address] [address] [phone] Nurse, [facility] Referral (Pt referred to [facility] by Dr. Raul Hoyos for fibromuscular dysplasia.) 04/13/2024 12:00 PM CDT Virtual Visit [facility] [address] [place] [address] Denise Woodson Ra, APRN CNP Cerebrovascular accident (CVA), unspecified mechanism (H) (Primary Dx) 04/08/2024 Telephone [facility] [address] [place] [address] Denise Woodson Ra, APRN CNP 04/06/2024 [facility] [place] Initial Department [facility] 04/02/2024 4:15 PM CDT Therapy Visit [address] [phone] Danya You, Delicia Higgins, PT Cerebrovascular accident (CVA), unspecified mechanism (H) (Primary Dx) 04/02/2024 3:15 PM CDT Therapy Visit [address] [address] Danya You PA Raasch, Sharon, JUAN Cognitive communication deficit (Primary Dx); Cerebrovascular accident (CVA), unspecified mechanism (H) 04/02/2024 2:15 PM CDT Therapy Visit [address] [phone] Danya You, Isabel Payan, OTR Cerebrovascular accident (CVA), unspecified mechanism (H) (Primary Dx) 04/02/2024 Travel 04/02/2024 Telephone [facility] [address] [address] Raul Hoyos MD Clinic Care Coordination - Follow-up 04/02/2024 MyC Medical Advice [facility] Neurology [address] [address] Liliane Cobos 04/01/2024 Travel 03/31/[address] [address] Denise Woodson Ra, BARRERA SAFETY DEPOSIT SUPERVISOR Medication Refill 03/26/2024 3:30 PM CDT Therapy Visit [address] [phone] Danya You, Delicia Higgins, PT Cerebrovascular accident (CVA), unspecified mechanism (H) (Primary Dx) 03/26/2024 2:30 PM CDT Therapy Visit [address] [phone] Danya You PA Raasch, Sharon, COMPLIANCE ASSOCIATE Cognitive communication deficit (Primary Dx); Cerebrovascular accident (CVA), unspecified mechanism (H) 03/26/2024 1:30 PM CDT Therapy Visit [address] [place] [address] Danya You PA Peterson, Megan A, OTR Cerebrovascular accident (CVA), unspecified mechanism (H) (Primary Dx) 03/26/2024 Travel 03/18/2024 1:21 PM CDT - 03/18/2024 11:59 PM CDT Hospital Encounter [facility] Imaging [address] [facility] [address] [place] [phone] Denise Woodson Ra, APRN CNP Fibromuscular dysplasia (H24) Discharge Disposition: Home or Self Care 03/18/2024 Travel 03/17/2024 4:00 PM CDT Therapy Visit [address] [address] Danya You, Vanessa Prescott, PT Cerebrovascular accident (CVA), unspecified mechanism (H) (Primary Dx) 03/17/2024 2:30 PM CDT Therapy Visit [address] [phone] Danya You, Charis Thomas, COMPLIANCE ASSOCIATE Cognitive communication deficit (Primary Dx); Cerebrovascular accident (CVA), unspecified mechanism (H) 03/17/2024 1:30 PM CDT Therapy Visit [address] [phone] Danya You PA Peterson, Megan A, OTR Cerebrovascular accident (CVA), unspecified mechanism (H) (Primary Dx) 03/17/2024 10:00 AM CDT Office Visit [address] [address] Denise Woodson Ra, BARRERA SAFETY DEPOSIT SUPERVISOR History of seizure (Primary Dx); Cerebrovascular accident (CVA), unspecified mechanism (H) 03/16/2024 Travel 03/16/2024 Telephone [facility] [address] [address] Raul Hoyos MD Appointment (Follow up ) 03/16/2024 MyC Medical Advice [facility] [address] [phone] Ora Bazan 03/11/2024 4:15 PM CDT Therapy Visit [address] [phone] Danya You, Delicia Higgins, PT Cerebrovascular accident (CVA), unspecified mechanism (H) (Primary Dx) 03/11/2024 3:00 PM CDT Therapy Visit [address] [phone] Danya You, Charis Thomas, COMPLIANCE ASSOCIATE Cognitive communication deficit (Primary Dx); Cerebrovascular accident (CVA), unspecified mechanism (H) 03/11/2024 2:15 PM CDT Therapy Visit [address] [phone] Danya You PA Peterson, Megan A, OTR Cerebrovascular accident (CVA), unspecified mechanism (H) (Primary Dx) 03/11/2024 Travel 03/09/2024 Telephone [facility] [address] [address] Raul Hoyos MD Call Back (Follow up appointment ) 03/05/2024 4:15 PM CDT Therapy Visit [address] [phone] Danya You, Delicia Higgins, PT Cerebrovascular accident (CVA), unspecified mechanism (H) (Primary Dx) 03/05/2024 3:15 PM CDT Therapy Visit [facility] [address] [place] [address] Danya You, Charis Thomas SLP Cerebrovascular accident (CVA), unspecified mechanism (H) (Primary Dx); Cognitive communication deficit 03/05/2024 1:30 PM CDT Therapy Visit [facility] [address] [place] [address] Danya You PA Peterson, Megan A, OTR Cerebrovascular accident (CVA), unspecified mechanism (H) (Primary Dx) 03/05/2024 Travel 03/04/2024 Travel 03/03/2024 11:14 AM CDT - 03/03/2024 2:19 PM CDT Emergency [facility] Emergency Dept [address] [place] [phone] Brayan Reich MD Right flank pain; Right sided abdominal pain Discharge Disposition: Home or Self Care 03/03/[address] [address] Denise Woodson Ra, APRN CNP Medication Refill 03/03/2024 Travel 03/02/2024 Orders Only [facility] [address] [place] [address] [address] [place] [address] Liliane Mcnair, [place] Hematuria, unspecified type (Primary Dx) 02/28/2024 10:46 AM CDT - 02/28/2024 11:59 PM CDT Hospital Encounter [facility] Hospital Imaging [address] [place] [phone] Janna Jo APRN CNP Flank pain; Abdominal pain, epigastric Discharge Disposition: Home or Self Care 02/28/2024 10:00 AM CDT Office Visit [facility] [address] [facility] [address] [place] [phone] Janna Jo, TECHNOLOGY INTERNSHIP SAFETY DEPOSIT SUPERVISOR Flank pain; Abdominal pain, epigastric; TSH elevation 02/27/2024 3:00 PM CDT Office Visit [facility] [address] [facility] [address] [place] [phone] Liliane Mcnair, HAYDEN Flank pain (Primary Dx); Abdominal pain, epigastric; Cerebrovascular accident (CVA), unspecified mechanism (H) 02/27/2024 Travel 02/27/2024 MyC Medical Advice [facility] [address] [place] [address] Denise Woodson Ra, APRN SAFETY DEPOSIT SUPERVISOR 02/24/2024 Travel 02/19/2024 3:00 PM CDT Therapy Visit [address] [phone] Danya You, Isabel Payan, OTR Cerebrovascular accident (CVA), unspecified mechanism (H) (Primary Dx) 02/19/2024 Travel 02/17/2024 2:45 PM CDT Therapy Visit [address] [phone] Danya You, Aliya Toledo, COMPLIANCE ASSOCIATE Cerebrovascular accident (CVA), unspecified mechanism (H) (Primary Dx); Cognitive communication deficit 02/17/2024 Travel 02/15/2024 Travel from Last 3 Months Immunizations Name [...] Disease No family hx of reviewed 06/05/20 Relation Status Comments Brother Alive x3 Cousin [...] How often do you attend yazdanism or zoroastrianism serv ices? Never 02/28/2024 Do [...] Answer Date Recorded PHQ-2 Score 2 05/05/2024 [facility] - Occupational [...] you got money to buy more? No 05/16/2024 Within the past 12 months, d id the food you bought just not last and you didn? t have money to get more? No 05/16/2024 Housing Stability Answer Date Recorded Do you have housing? (Sarain g is defined as stable permanent housing and does not include staying ouside in a car, in a tent, in an abandoned building, in an overnight nursing home, or couch-surfing.) Yes 05/16/2024 Are you worried about losing your housing? No 05/16/2024 Financial Resource Strain Answer Date R ecorded Within the past 12 months, h ave you or your family members you live with been unable to get utilities (heat, electricity) when it was really needed? No 05/16/2024 Transportation Needs Answer Date Record ed Within the past 12 months, h as lack of transportation kept you from medical appointments, getting your medicines, non-medical meetings or appointments, work, or from getting things that you need? No 05/16/2024 Interpersonal Safety Answer Date Record ed Do you feel physically and e motionally safe where you currently live? No 05/17/2024 Within the past 12 months, h ave you been hit, slapped, kicked or otherwise physically hurt by someone? No 05/17/2024 Within the past 12 months, h ave you been humiliated or emotionally abused in other ways by your partner or ex-partner? No 05/17/2024 Sex and Gender Information Value Date Recorded Sex Assigned at Not on file Gender Identity Not on file Sexual Orientation Not on file Last Filed Vital Signs Vital Sign Reading Time Taken Comments Blood Pressure 119/71 05/16/2024 8:44 PM CDT Pulse 71 05/16/2024 8:44 PM CDT Temperature 36.6 ??C (97.8 ??F) 05/16/2024 8:44 PM CD T Respiratory Rate 18 05/16/2024 9:50 PM CDT Oxygen Saturation 94% 05/16/2024 8:44 PM CDT Inhaled Oxygen Concentration - - Weight 95 kg (209 lb 7 oz) 05/16/2024 6:00 AM CD T Height 172.7 cm (5' 8) 05/14/2024 9:09 PM CDT Body Mass Index 31.84 05/14/2024 9:09 PM CDT Plan of Treatment Upcoming Encounters Date Type Department Care Team (Late st Contact Info) Description 05/26/2024 8:30 AM CDT Office Visit [facility] [address] [place] [phone] Denise Woodson Ra, BARRERA SAFETY DEPOSIT SUPERVISOR [address] [place] [address] 06/08/2024 8:30 AM CDT Office Visit [facility] [address] [place] [phone] Denise Wodoson Ra, BARRERA SAFETY DEPOSIT SUPERVISOR [address] [facility] [place] [address] 06/26/2024 2:40 PM CDT Office Visit [facility] [address] [facility] [address] [place] [phone] Danna Cardenas PA-C [address] [place] [address] Health Maintenance Due Date Last Done Comments ADVANCE CARE PLANNING 1976 CT COLONOGRAPHY 1976 FIT 1976 FLEX SIG 1976 COLONOSCOPY 1986 HIV SCREENING 1991 HEPATITIS C SCREENING 1994 Pneumococcal Vaccine: Pediatrics (0 to 5 Years) and At-Risk Patients (6 to 64 Years) (2 of 2 - PCV) 03/16/2005 03/16/2004 ASTHMA ACTION PLAN 01/04/2022 01/04/2021, 0 01/04/2021, 06/15/2019 COVID-19 Vaccine ( season) 2023 07/07/2021, 11/20/2020 YEARLY PREVENTIVE VISIT 01/11/2024 01/11/20 23, 07/27/2021, 07/27/2020, Additional history exists INFLUENZA VACCINE (#1) 2024 , 06/23/2021, 07/27/2020, Additional history exists ASTHMA CONTROL TEST 09/17/2024 03/17/2024, 02/06/2024, 01/22/2022, Additional history exists PHQ-9 09/17/2024 03/17/2024, 01/15, 02/06/2024, Additional history exists ANNUAL REVIEW OF HM ORDERS 02/05/2025 02/06/2024, LIPID 05/15/2025 05/15/2024, 07/17, 07/27/2020, Additional history exists MAMMO SCREENING 07/30/2025 07/30/2023, 07/17, 04/25/2022, Additional history exists COLORECTAL CANCER SCREENING 10/28/2025 sDNA (Cologuard) 10/28/2025 10/28/2022 GLUCOSE 05/15/2027 05/15/2024, 04/17, 05/10/2024, Additional history exists DTAP/TDAP/TD IMMUNIZATION (7 - [...] Health weekly - PT, OT and COMPLIANCE ASSOCIATE - PCP appointment 05/26/24 & 06/08/24 - Stroke Neurology Dr. Hoyos 04/14/24 #[phone] - Epilepsy Neurology Dr. Barcenas 05/05/24 follow up recommended in 2 months: 07/05/24 TBD. #[phone] - Vascular Dr. Zambrano 05/01/24 - follow up recommended in 6 months: 11/11/24 TBD #[phone]. - MTM if covered by insurance TBD [...] clinic with / after hours services available. Tinning Machine Set Up Operator will remain available as needed. Procedures The patient is currently admitted. The information in this section might not be complete until the patient is discharged. Procedure Name Priority Date/Time Associated Diagnosis Comments MR BRAIN W/O & W CONTRAST Routine 05/15/2024 4:01 PM CDT MRA BRAIN (KLUTI KAA[place] OF XAVIER) W/O CONTRAST Routine 05/15/2024 4:01 PM CDT MRA NECK (CAROTIDS) W/O & W CONTRAST Routine 05/15/2024 4:01 PM CDT NM MPI WITH LEXISCAN Routine 05/15/2024 11:19 AM CDT CBC WITH PLATELETS & DIFFERENTIAL Routine 05/15/2024 6:25 AM CDT CBC WITH PLATELETS AND DIFFERENTIAL Routine 05/15/2024 6:25 AM CDT BASIC METABOLIC PANEL Routine 05/15/2024 6:25 AM CDT LIPID REFLEX TO DIRECT LDL PANEL Routine 05/15/2024 6:25 AM CDT MR BRAIN W/O & W CONTRAST [...] Routine 02/27/2024 3:42 PM CDT Flank pain MA SCREENING BILATERAL W/ MAT Routine 04/25/2022 5:03 PM CDT Visit for screening mammogram ASTHMA ACTION PLAN Routine 01/04/2021 9: 09 AM CDT from Last 3 Months or Most Recently Relevant to Health Maintenance Results * MR Brain w/o & w Contrast (05/15/2024 4:01 PM CDT) Only the most recent of2 resultswithin the time period is included. Anatomical Region Laterality Modality Head, SUBRAD MR NEURO, UMP MR NEURO, RAD MR Magnetic Resonance Impressions 05/15/2024 4:10 PM CDT IMPRESSION: ??No restricted diffusion to suggest acute ischemia. Mild chronic small vessel ischemic changes. Small region of susceptibility abnormality which is stable from the prior study compatible with an area of remote hemosiderin deposition from either a remote insult or possibly a cavernous malformation in this area felt to be less likely. MIRELA TINEO MD SYSTEM ID: ??[id number] Narrative 05/15/2024 4:10 PM CDT MRI BRAIN WITHOUT AND WITH CONTRAST ??05/15/2024 4:01 PM HISTORY: ??left sided numbness TECHNIQUE: ??Multiplanar, multisequence MRI of the brain without and with 10mL Gadavist ?? COMPARISON: 05/10/2024 FINDINGS: No midline shift or mass effect. No acute intracranial hemorrhage. No hydrocephalus or extra-axial hemorrhage. No restricted diffusion to suggest acute ischemia. Mild chronic small vessel ischemic changes. There is a region of susceptibility abnormality which is stable from the prior study involving the posterior left temporal lobe which could reflect a small cavernous malformation or a focus of remote insult with remote hemosiderin deposition in this region. No abnormal enhancement on postcontrast imaging of the brain. The orbits, paranasal sinuses and mastoids are unremarkable. Procedure Note Mirela Tineo MD - 05/15/2024 MRI BRAIN WITHOUT AND WITH CONTRAST 05/15/2024 4:01 PM HISTORY: left sided numbness TECHNIQUE: Multiplanar, multisequence MRI of the brain without and with 10mL Gadavist COMPARISON: 05/10/2024 FINDINGS: No midline shift or mass effect. No acute intracranial hemorrhage. No hydrocephalus or extra-axial hemorrhage. No restricted diffusion to suggest acute ischemia. Mild chronic small vessel ischemic changes. There is a region of susceptibility abnormality which is stable from the prior study involving the posterior left temporal lobe which could reflect a small cavernous malformation or a focus of remote insult with remote hemosiderin deposition in this region. No abnormal enhancement on postcontrast imaging of the brain. The orbits, paranasal sinuses and mastoids are unremarkable. IMPRESSION: No restricted diffusion to suggest acute ischemia. Mild chronic small vessel ischemic changes. Small region of susceptibility abnormality which is stable from the prior study compatible with an area of remote hemosiderin deposition from either a remote insult or possibly a cavernous malformation in this area felt to be less likely. MIRELA TINEO MD SYSTEM ID: [id number] Stevo Islas MD IMG MRI ORD ERABLES * MRA Neck (Carotids) wo & w Contrast (05/15/2024 4:01 PM CDT) Anatomical Region Laterality Modality Neck, SUBRAD MR NEURO, UMP MR NEURO, RAD MR Magnetic Resonance Impressions 05/15/2024 4:12 PM CDT IMPRESSION: ??Normal MR angiogram of the neck. MIRELA TINEO MD SYSTEM ID: ??[id number] Narrative 05/15/2024 4:12 PM CDT MRA NECK WITHOUT AND WITH CONTRAST ??05/15/2024 4:01 PM HISTORY: left sided tingling, eb and flow since yesterday history of prior CVA mri head done last th [place] TECHNIQUE: 2D [id number] MR angiogram of the neck without contrast and 3D MR angiogram of the neck with ??10mL Gadavist . Estimates of carotid stenoses are made relative to the distal internal carotid artery diameters except as noted. COMPARISON: 05/10/2024 CTA neck. FINDINGS: ?? Normal origin of the great vessels from the aortic arch. Right carotid artery: The right common and internal carotid arteries are patent. No significant stenosis. Left carotid artery: The left common and internal carotid arteries are patent. No significant stenosis. Vertebral arteries: Vertebral arteries appear patent without evidence of dissection. No significant stenosis. Procedure Note Mirela Tineo MD - 05/15/2024 MRA NECK WITHOUT AND WITH CONTRAST 05/15/2024 4:01 PM HISTORY: left sided tingling, eb and flow since yesterday history of prior CVA mri head done last th at [place] TECHNIQUE: 2D [id number] MR angiogram of the neck without contrast and 3D MR angiogram of the neck with 10mL Gadavist . Estimates of carotid stenoses are made relative to the distal internal carotid artery diameters except as noted. COMPARISON: 05/10/2024 CTA neck. FINDINGS: Normal origin of the great vessels from the aortic arch. Right carotid artery: The right common and internal carotid arteries are patent. No significant stenosis. Left carotid artery: The left common and internal carotid arteries are patent. No significant stenosis. Vertebral arteries: Vertebral arteries appear patent without evidence of dissection. No significant stenosis. IMPRESSION: Normal MR angiogram of the neck. MIRELA TINEO MD SYSTEM ID: [id number] Delicia Saini TECHNOLOGY INTERNSHIP SAFETY DEPOSIT SUPERVISOR IMG MRI ORDERA BLES * MRA Brain ([place]) wo Contrast (05/15/2024 4:01 PM CDT) Anatomical Region Laterality Modality Head, SUBRAD MR NEURO, UMP MR NEURO, RAD MR Magnetic Resonance Impressions 05/15/2024 4:17 PM CDT IMPRESSION: ??No hemodynamically significant stenosis in the head or evidence of acute vascular injury. ?? MIRELA TINEO MD SYSTEM ID: ??[id number] Narrative 05/15/2024 4:17 PM CDT MR ANGIOGRAM OF THE HEAD WITHOUT CONTRAST ?? 05/15/2024 4:01 PM HISTORY: eb/flow of left sided heaviness, tingling, since yesterday TECHNIQUE: ??3D [id number] MR angiogram of the head without contrast. COMPARISON: 05/10/2024 CTA head FINDINGS: The major intracranial arteries including the proximal branches of the anterior cerebral, middle cerebral, and posterior cerebral arteries appear patent without vascular cutoff. No aneurysm identified. No significant stenosis. Mildly hypoplastic left A1 segment. Procedure Note Mirela Tineo MD - 05/15/2024 MR ANGIOGRAM OF THE HEAD WITHOUT CONTRAST 05/15/2024 4:01 PM HISTORY: eb/flow of left sided heaviness, tingling, since yesterday TECHNIQUE: 3D [id number]-[id number] MR angiogram of the head without contrast. COMPARISON: 05/10/2024 CTA head FINDINGS: The major intracranial arteries including the proximal branches of the anterior cerebral, middle cerebral, and posterior cerebral arteries appear patent without vascular cutoff. No aneurysm identified. No significant stenosis. Mildly hypoplastic left A1 segment. IMPRESSION: No hemodynamically significant stenosis in the head or evidence of acute vascular injury. MIRELA TINEO MD SYSTEM ID: [id number] Delicia Saini TECHN[employer]Y INTERNSHIP SAFETY DEPOSIT SUPERVISOR IMG MRI ORDERA BLES * NM Lexiscan stress test (nuc card) (05/15/2024 11:19 AM CDT) Target HR 173 RADIANT Baseline Systolic BP 141 RADIANT Baseline Diastolic BP 73 RADIANT Last Stress Systolic BP 144 RADIANT Last Stress Diastolic BP 82 RADIANT Baseline HR 65 bpm RADIANT Max HR 108 RADIANT Max Predicted HR 62 % RADIANT Rate Pressure Product 15,552.0 RADIANT Anatomical Region Laterality Modality Chest Nuclear Medicine Narrative 05/15/2024 2:19 PM CDT ?The nuclear stress test is negative for inducible myocardial ischemia or infarction. ?Left ventricular function is normal. ?There is no prior study for comparison. Stress Findings A pharmacologic stress test was performed following a supine Lexiscan protocol using 0.4 mg of intravenous regadenoson administered over 10 seconds under the supervision of Dr. Matos. The patient reported chest discomfort during the stress test. The supervising registered nurse observed typical vasodilator side effects during the stress test. ECG Baseline electrocardiogram demonstrates sinus rhythm. Non specific ST/ T wave changes. T wave inversion V5 and 6 The stress electrocardiogram is negative for inducible ischemic EKG changes. There were no arrhythmias during stress. There were no arrhythmias during recovery. Isotope Administration Nuclear imaging was accomplished using a one day protocol with 32.4 mCi of technetium sestamibi injected at the completion of Lexiscan infusion on 05/15/2024 and 11.5 mCi of technetium sestamibi at rest on 05/15/2024. Nuclear Study Quality Final image quality is satisfactory. Perfusion Defect The nuclear stress test is negative for inducible myocardial ischemia or infarction. Left ventricular function is normal. Nuclear Prior Study There is no prior study for comparison. Perfusion Scoring Stress Summed Score: 0 Percent Normal: 0.00% The left ventricular perfusion is normal. Perfusion Scoring Resting Summed Score: 0 Percent Normal: 0.00% The left ventricular perfusion is normal. Perfusion Scores: SRS Score: 0 Percentage Abnormal: 0.00% Perfusion Scores: SSS Score: 0 Percentage Abnormal: 0.00% Perfusion Scores: SDS Score: 0 Percentage Abnormal: 0.00% Wall Motion Score Index: 1.00 The left ventricular wall motion is normal. Christen Peng MD IMG NM ORDERABLES * CBC with platelets and differential (05/15/2024 6:25 AM CDT) Only the most recent of5 resultswithin the time period is included. Pathologist [facility] WBC Count 5.4 4.0 - 11.0 10e3/uL 05/15/2024 7:01 AM CDT LABORATORY RBC Count 4.37 3.80 - 5.20 10e6/uL 05/15/2024 7:01 AM CDT LABORATORY Hemoglobin 13.6 11.7 - 15.7 g/dL 05/15/2024 7:[address] Hematocrit 40.8 35.0 - 47.0 % 05/15/2024 7:01 AM CDT LABORATORY MCV 93 78 - 100 fL 05/15/2024 7:01 AM CDT LABORATORY MCH 31.1 26.5 - 33.0 pg 05/15/2024 7:01 AM CDT LABORATORY MCHC 33.3 31.5 - 36.5 g/dL 05/15/2024 7:01 AM CDT LABORATORY RDW 11.7 10.0 - 15.0 % 05/15/2024 7:01 AM CDT LABORATORY Platelet Count 172 150 - 450 10e3/uL 05/15/2024 7:01 AM CDT LABORATORY % Neutrophils 49 % 05/15/2024 7:01 AM CDT LABORATORY % Lymphocytes 35 % 05/15/2024 7:01 AM CDT LABORATORY % Monocytes 6 % 05/15/2024 7:01 AM CDT LABORATORY % Eosinophils 8 % 05/15/2024 7:01 AM CDT LABORATORY % Basophils 1 % 05/15/2024 7:01 AM CDT LABORATORY % Immature Granulocytes 0 % 05/15/2024 7:01 AM CDT LABORATORY NRBCs per 100 WBC 0 <1 /100 024 7:01 AM CDT LABORATORY Absolute Neutrophils 2.7 1.6 - 8.3 10e3/uL 05/15/2024 7:01 AM CDT LABORATORY Absolute Lymphocytes 1.9 0.8 - 5.3 10e3/uL 05/15/2024 7:01 AM CDT LABORATORY Absolute Monocytes 0.3 0.0 - 1.3 10e3/uL 05/15/2024 7:01 AM CDT LABORATORY Absolute Eosinophils 0.4 0.0 - 0.7 10e3/uL 05/15/2024 7:01 AM CDT LABORATORY Absolute Basophils 0.0 0.0 - 0.2 10e3/uL 05/15/2024 7:01 AM CDT LABORATORY Absolute Immature Granulocytes 0.0 <=0.4 10e3/uL 05/15/2024 7:01 AM CDT LABORATORY Absolute NRBCs 0.0 10e3/uL 05/15/2024 7:01 AM CDT LABORATORY Blood STRUCTURE OF RIGHT HAND / Unknown Venipuncture / Unknown 05/15/2024 6:25 AM CDT 05/15/2024 6:57 AM CDT Christen Peng MD LAB - BLOOD ORDERABL ES LABORATORY [facility] Acute Care Lab [address] 1[address] floor, [address] [place] [address], [facility] [phone] * Lipid panel reflex to direct LDL (05/15/2024 6:25 AM CDT) Cholesterol 155 <200 mg/dL 05/15/2024 11:38 AM CDT [facility] LAB[facility]ATORY Triglycerides 102 <150 mg/dL 05/15/2024 11:38 AM CDT [facility] LAB[facility] Direct Measure HDL 53 >=50 mg/dL 2023 11:38 AM CDT [facility] LDL Cholesterol Calculated 82 <=100 mg/dL 05/15/2024 11:38 AM CDT [facility] Non HDL Cholesterol 102 <130 mg/dL 05/15/2024 11:38 AM CDT [facility] LAB[facility] Patient Fasting > 8hrs? Yes 05/15/2024 11:38 AM CDT LABORATORY Blood STRUCTURE OF RIGHT HAND / Unknown Venipuncture / Unknown 05/15/2024 6:25 AM CDT 05/15/2024 6:57 AM CDT Narrative [facility] - 05/15/2024 11:38 AM CDT Cholesterol Desirable: ??<200 mg/dL Triglycerides Normal: ??Less [...] ??Greater than or equal to 220 mg/dL Christen Peng MD LAB - BLOOD ORDERABL ES U LABORATORY [facility] Lab [address] [facility], [address] [place] [address], [facility] Acute Care Lab [address] 1st floor, [address] [place] [address], [facility] [phone] * Basic metabolic panel (05/15/2024 6:25 AM CDT) Only the most recent of2 resultswithin the time period is included. Sodium 141 135 - 145 mmol/L 05/15/2024 7:26 AM CDT LABORATORY Potassium 4.5 3.4 - 5.3 mmol/L 05/15/2024 7:26 AM CDT LABORATORY Chloride 106 98 - 107 mmol/L 05/15/2024 7:26 AM T LABORATORY Carbon Dioxide (CO2) 27 22 - 29 mmol/L 05/15/2024 7:26 AM CDT LABORATORY Anion Gap 8 7 - 15 mmol/L 05/15/2024 7:26 AM CDT LABORATORY Urea Nitrogen 15.4 6.0 - 20.0 mg/dL 05/15/2024 7:26 AM CDT LABORATORY Creatinine 0.90 0.51 - 0.95 mg/dL 05/15/2024 7:26 AM CDT LABORATORY GFR Estimate 79 >60 mL/min/1.7 3m2 05/15/2024 7:26 AM CDT LABORATORY Comment:eGFR calculated us2020 CKD-EPI equation. Calcium 9.1 8.8 - 10.4 mg/dL 05/15/2024 7:26 AM CDT LABORATORY Comment:Reference intervals for this test were updated on 03/31/2024 to reflect our healthy population more accurately. There may be differences in the flagging of prior results with similar values performed with this method. Those prior results can be interpreted in the context of the updated reference intervals. Glucose 89 70 - 99 mg/dL 05/15/2024 7:26 AM CDT LABORATORY Blood STRUCTURE OF RIGHT HAND / Unknown Venipuncture / Unknown 05/15/2024 6:25 AM CDT 05/15/2024 6:57 AM CDT Christen Peng MD LAB - BLOOD ORDERABL ES LABORATORY [facility] Acute Care Lab [address] 1[address], [address] [place] [address], [facility] [phone] * (ABNORMAL) Keppra (Levetiracetam) Level (05/10/2024 6:49 PM CDT) Keppra (Levetiracetam ) Level 7.6(L) 10.0 - 40.0 ??g/mL 05/10/2024 7:32 PM CDT [facility] LAB[facility]ATORY Blood BLOOD SPECIMEN / Unknown Venipuncture / Unknown 05/10/2024 6:49 PM CDT 05/10/2024 6:52 PM CDT Felicita Rae MD LAB - BLOOD ORDERA BLES [facility] LABORATORY [facility] [address] [facility] [address], [address] [place] [address], [facility] * CTA Head Neck with Contrast (05/10/2024 [...] interpretation and I agree with the findings. SHANA NIETO MD Narrative 05/10/2024 4:26 PM CDT [...] of the upper aortic arch through the [place]. This CT angiogram data was [...] No significant spinal canal stenosis. Procedure Note Shana Nieto MD - 05/10/2024 EXAM: CTA HEAD [...] of the upper aortic arch through the [place]. This CT angiogram data was [...] interpretation and I agree with the findings. SHANA NIETO MD Todd Osborn MD [facility] ORDERABLES * CT Head w/o Contrast (05/10/2024 3:39 PM CDT) Anatomical Region Laterality Modality Head, SUBRAD CT NEURO, SUBRA D CT NEURO, UMP CT NEURO, RAD CT Computed Tomography Impressions 05/10/2024 4:26 PM CDT IMPRESSION: No acute intracranial pathology. I have personally reviewed the examination and initial interpretation and I agree with the findings. SHANA NIETO MD Narrative 05/10/2024 4:26 PM CDT EXAM: CT HEAD W/O CONTRAST ??05/10/2024 3:39 PM HISTORY: Concern for stroke. ?? COMPARISON: ??CT 02/13/2024, 02/04/2024. MRI 02/13/2024. TECHNIQUE: Using multidetector thin collimation helical acquisition technique, axial, coronal and sagittal CT images from the skull base to the vertex were obtained without intravenous contrast. Engine Lathe Tender (topogram) image(s) also obtained and reviewed. FINDINGS: No intracranial hemorrhage, mass effect, or midline shift. No acute loss of pollack-white matter differentiation in the cerebral hemispheres. Ventricles are proportionate to the cerebral sulci. Clear basal cisterns. The bony calvaria and the bones of the skull base are normal. Trace paranasal sinus mucosal thickening. Mastoid air cells are clear. Grossly normal orbits. Procedure Note Shana Nieto MD - 05/10/2024 EXAM: CT HEAD W/O CONTRAST 05/10/2024 3:39 PM HISTORY: Concern for stroke. COMPARISON: CT 02/13/2024, 02/04/2024. MRI 02/13/2024. TECHNIQUE: Using multidetector thin collimation helical acquisition technique, axial, coronal and sagittal CT images from the skull base to the vertex were obtained without intravenous contrast. Engine Lathe Tender (topogram) image(s) also obtained and reviewed. FINDINGS: [...] interpretation and I agree with the findings. SHANA NIETO MD Todd Osborn MD IMG CT ORDERABLES * Troponin T, High Sensitivity (05/10/2024 2:34 [...] MD LAB - BLOOD ORDERABL ES LABORATORY [facility] [place] [facility] Lab [address] [facility], [address] [place] [address] * INR (05/10/2024 2:34 PM CDT) INR 0.92 0.85 - 1.15 05/10/2024 2:54 PM CDT [facility] LAB[facility]ATORY Blood STRUCTURE OF LEFT HAND / Unknown Venipuncture / Unknown 05/10/2024 2:34 PM CDT 05/10/2024 2:38 PM CDT Todd Osborn MD LAB - BLOOD ORDERABL ES Performing Organization Address City/[facility]/ZIP Co de Phone Number [facility] LABORATORY [facility] [place] [facility] Lab [address] [facility], [address] [phone] * Partial thromboplastin time (05/10/2024 2:34 PM CDT) aPTT 25 22 - 38 Seconds 05/10/2024 2:54 PM CDT [facility] LAB[facility]ATORY Blood STRUCTURE OF LEFT HAND / Unknown Venipuncture / Unknown 05/10/2024 2:34 PM CDT 05/10/2024 2:38 PM CDT Todd Osborn MD LAB - BLOOD ORDERABL ES Performing Organization Address [facility]/ZIP Co de Phone Number [facility] LABORATORY [facility] [address] [facility], [address] [phone] * Glucose by meter (05/10/2024 2:33 PM CDT) GLUCOSE BY METER POCT 78 70 - 99 mg/dL 05/10/2024 2:40 PM CDT [facility] LAB[facility] POC Blood, Capillary BLOOD SPECIMEN / Unknown 05/10/2024 2:33 PM CDT 05/10/2024 2:40 PM CDT Todd Osborn MD LAB - BEAKER POCT Performing Organization Address City/[facility]/ZIP Co de Phone Number [facility] LABORATORY POC [facility] [place] [facility] Lab [address] [facility], [address] [place] [address] * EKG 12-lead, tracing only (05/10/2024 11:25 AM CDT) Only the most recent of2 resultswithin the time period is included. Systolic Blood Pressure mmHg RADIOLOGY RESULTS Diastolic Blood Pressure mmHg RADIOLOGY RESULTS Ventricular Rate 66 BPM RAD IOLOGY RESULTS Atrial Rate 66 BPM RADIOLOG Y RESULTS IN Interval 162 ms RADIOLOG Y RESULTS QRS Duration 84 ms RADIOLO GY RESULTS QT 378 ms RADIOLOGY RESULTS QTc 396 ms RADIOLOGY RESULTS P [place] 67 degrees RADIOLOGY RESULTS R AXIS 84 degrees RADIOLOGY RESULTS T [place] 34 degrees RADIOLOGY RESULTS Interpretation ECG Sinus rhythm Possible Left atrial enlargement Borderline ECG Unconfirmed report - interpretation of this ECG is computer generated - see medical record for final interpretation Confirmed by - EMERGENCY ROOM, PHYSICIAN ([id number]), make up editor OBDULIA MAILE ([id number]) on 05/10/2024 11:53:46 AM RADIOLOGY RESULTS 05/10/2024 [...] identified. SINGH WORLEY MD Denise Woodson APRN [facility] IM CT ORDER NASRIN * CT [...] is identified. PETRONA HARRIS MD SYSTEM ID: ??[id number] Narrative 03/03/2024 2:[address] ABDOMEN [...] is identified. PETRONA HARRIS MD SYSTEM ID: [id number] Brayan Reich MD IMG CT ORDERABLES * [...] [facility] Acute Care Lab [address] [facility] Lab (1st floor, no room number) [place] [address], [facility] * HCG qualitative urine (03/03/2024 10:27 AM CDT) hCG Urine Qualitative Negative Negative PRATEEK 03/03/2024 12:05 PM CDT RH LABORATORY Comment:This test is for scr eening purposes. Results should be interpreted along with the clinical picture. Confirmation testing is available if warranted by ordering [id number], HCG Quantitative . Urine URINE SPECIMEN OBTAINED BY CLEAN CATCH PROCEDURE / Unknown Non-blood Collection / Unknown 03/03/2024 10:27 AM CDT 03/03/2024 10:33 AM CDT Brayan Reich MD LAB - URINE ORDERABL ES LABORATORY [facility] Acute Care Lab [address] [facility] Lab (1st floor, no room number) [place] [address] * (ABNORMAL) UA with Microscopic [...] mg/dL 03/03/2024 10:40 AM CDT LABORATORY Specific [place] Urine 1.005 1.003 - 1.035 03/03/2024 [...] 1 <=2 /LPF 03/03/2024 10:40 AM CDT RH LABORATORY Urine URINE SPECIMEN OBTAINED BY CLEAN CATCH PROCEDURE / Unknown Non-blood Collection / Unknown 03/03/2024 10:27 AM CDT 03/03/2024 10:33 AM CDT Narrative [facility] LABORATORY - 03/03/2024 10:40 AM CDT Urine Culture not indicated Brayan Reich MD LAB - URINE ORDERABL ES [facility] Care Lab [address] Lab (1st floor, no room number) [address] [place] [address] * Erythrocyte sedimentation rate auto (02/28/2024 10:38 AM CDT) Erythrocyte Sedimentation Rate 20 0 - 20 mm/hr 02/28/2024 11:18 AM CDT LABORATORY Blood VENOUS LINE / Unknown Venipuncture / Unknown 02/28/2024 10:38 AM CDT 02/28/2024 10:47 AM CDT Janna Jo APRN SAFETY DEPOSIT SUPERVISOR LAB - BLOOD ORDERABLES Performing Organization Address City/[facility]/ZIP Co de Phone Number [facility] Care Lab [address] Lab (1st floor, no room number) [place] [phone] [place] [address] * (ABNORMAL) CRP inflammation (02/28/2024 10:38 AM CDT) CRP Inflammation 6.29(H) <5.00 mg/L 02/28/2024 11:39 AM CDT LABORATORY Blood VENOUS LINE / Unknown Venipuncture / Unknown 02/28/2024 10:38 AM CDT 02/28/2024 10:47 AM CDT Janna Jo APRN SAFETY DEPOSIT SUPERVISOR LAB - BLOOD ORDERABLES [facility] Care Lab [address] Lab (1st floor, no room number) [place] [phone] * TSH with free T4 reflex (02/28/2024 10:27 AM CDT) Pathologist [facility] TSH 3.87 0.30 - 4.20 uIU/mL 02/28/2024 11:56 AM CDT RH LABORATORY Blood ARTERIAL LINE / Unknown Venipuncture / Unknown 02/28/2024 10:27 AM CDT 02/28/2024 11:08 AM CDT Janan Jo APRN SAFETY DEPOSIT SUPERVISOR LAB - BLOOD ORDERABLES LABORATORY [facility] Acute Care Lab [address] Lab (1st floor, no room number) [place] [address] * Lipase (02/27/2024 5:27 PM CDT) Pathologist [facility] Lipase 24 13 - 60 U/L 02/28/2024 8:32 PM CDT [facility] LAB[facility]ATORY Blood BLOOD SPECIMEN / Unknown Venipuncture / Unknown 02/27/2024 5:27 PM CDT 02/27/2024 5:27 PM CDT Liliane Mcnair PA-C LAB - BLOOD ORDER NASRIN [facility] LABORATORY [facility] [place] [facility] Lab [address] [facility], [address] [place] [address] * (ABNORMAL) UA Microscopic with Reflex to Culture (02/27/2024 3:42 PM CDT) Pathologist [facility] Bacteria Urine Moderate( A) None Seen /HPF [...] LAB - URINE ORDER NASRIN EA LABORATORY [facility] [place] [facility] [address] [facility] [address] [place] [address] [phone] * (ABNORMAL) UA Macroscopic with reflex to [...] 02/27/2024 3:52 PM CDT EA LABORATORY Specific [place] Urine 1.025 1.003 - 1.035 02/27/2024 3:52 [...] LAB - URINE ORDER NASRIN EA LABORATORY [facility] - [place] Lab [address] [facility] [address] [place] [address], [facility] [phone] * MA Screen Bilateral w/Mat (04/25/2022 5:03 [...] patient. IRMA HOWELL MD Denise Woodson APRN SAFETY DEPOSIT SUPERVISOR IMG MAMMOGRA PHY ORDERABLES from Last 3 Months or Most Recently Relevant to Health Maintenance Additional Health Concerns Active Problems Noted Date Diagnosed Date Increased risk of re-admission 02/18/2024 Advance Directives For more information, please contact: [phone] * Full Code (Latest Code Status on File) Date Activated Date Inactivated Comments 05/14/2024 9:57 PM All basic and advanced life-sustaining interventions are performed as appropriate Question Answer Comments Code status determined by: Other (please afia shah) * Full Code Date Activated Date Inactivated Comments 01/24/2024 12:40 [...] patie nt/ legal decision maker Care Teams Skein Tier Relationship Specialty Start Date End Date Winston Villatoro OD [facility] [place] [address] [facility] [address] [place] [address] PCP - Ophthalmology Ophthalmology 02/11/13 Denise Woodson Ra, APRN SAFETY DEPOSIT SUPERVISOR [address] [place] [address] PCP - General Family Practice 09/21/20 Denise Woodson Ra, APRN SAFETY DEPOSIT SUPERVISOR [address] [place] [address] Assigned PCP 07/17/20 Usha Simon APRN SAFETY DEPOSIT SUPERVISOR [address] [facility] [address] Nurse Practitioner Neurological Surgery 01/24/24 Dangelo Salinas MD [address] [place], [place] [id number] Neurology 01/27/24 Anastasia Stearns, RN Lead Tinning Machine Set Up Operator 02/06/24 Germaine Lopez, CHW Community Health Worker Primary Care - CC 02/18/24 Lisa Zambrano MD [address] [facility] [address] [place] [id number] Assigned Heart and Vascular Provider 05/08/24 Raul Hoyos MD [address] [facility], [place] [address] Assigned Neuroscience Provider 05/08/24
--- OUTSIDE RECORDS SUMMARY | 2024-05-17 01:21 | XMS_ITS | Encounter Summary ---
Author Organization [facility] Address [address] [place] [address] Care Team Providers Care Social Science Analyst Name Role Phone Darius Shaw M.D. Primary Care Provider Encounter Details Date Type Department Care Team (Late st Contact Info) Description 05/12/2013 Historical Ophthalmology [facility] Jonathan Bonilla M.D. [address] [place] [phone] Social History Tobacco Use Types Packs/Day Years [...] corneal thickness CDM Reports - EYEGEN Id: [id number] Status: Fnl documented in this encounter Plan of Treatment Not on file documented as of this encounter Visit Diagnoses Not on filedocumented in this encounter Additional Health Concerns Infection Onset Date Last Indicated Resolved Time COVID19 Pending 07/11/2020 07/11/2020 07/12/2020 5 :56 PM CDT COVID19 Pending 07/17/2020 07/17/2020 07/17/2020 9 :18 PM DEALER SALES REP COVID19 Pending 09/19/2020 09/19/2020 10/09/2020 4 :45 AM DEALER SALES REP COVID19 Pending 10/25/2020 10/26/2020 10/27/2020 9 :59 AM DEALER SALES REP COVID19 Pending 06/03/2021 06/03/2021 06/03/2021 9 :40 AM CDT COVID19 Pending 06/03/2021 06/03/2021 06/03/2021 1 0:36 PM CDT COVID19 Pending 08/09/2021 08/09/2021 08/11/2021 1 2:57 AM DEALER SALES REP COVID19 Pending 06/26/2022 06/26/2022 06/26/2022 5 :47 PM CDT Assessment Noted Time PHQ-9 Depression Total Score: 8 09/18/19 13 7:41 AM DEALER SALES REP documented as of this encounter Care Teams Social Science Analyst Relationship Specialty Start Date End Date Darius Shaw M.D. [address] [place] [phone] PCP - General Family Medicine 09/27/22 documented as of this encounter
--- OUTSIDE RECORDS SUMMARY | 2024-05-17 01:21 | XMS_ITS | Clinical Summary ---
Author Organization [facility] Address [place], [place] [address] Care Team Providers Care Furniture Inspector Name Role Phone Keira Irvin MD Primary [...] [place] [phone] Bette Mantilla MD Telehealth ([facility] ) 05/07/2024 Office Visit [facility] [address] [place] [phone] Roshni Molina MD Telehealth ([facility] - phone consult only) from Last 3 Months Immunizations Name Administration Dates Next Due COVID-19 vaccine (mySugr-Bio NTech 30mcg/0.3mL) CORKY ROSARIO 07/07/2021 Hepatitis B, [...] REFLEX MEASURED LDL Routine 08/03/2011 10:31 AM ANALYTICS SENIOR MANAGER Screening for other and unspecified cardiovascular conditions from Last 3 Months or Most Recently Relevant to Health Maintenance Results * LIPID PANEL W REFLEX MEASURED LDL (08/03/2011 10:31 AM ANALYTICS SENIOR MANAGER) CHOLESTEROL,TOTAL 171 110 - 199 mg/dL [facility] TRIGLYCERIDES 67 <150 mg/dL [facility] HDL CHOLESTEROL 43 >40 mg/dL [facility] CHOL/HDL RATIO 3.98 <4.51 [facility] LDL CHOLESTEROL 115 <131 mg/dL [facility] PATIENT STATUS Fasting [facility] Blood specimen (specimen) BLOOD SPECIMEN / Unknown 08/03/2011 10:31 AM ANALYTICS SENIOR MANAGER 08/03/2011 10:23 AM ANALYTICS SENIOR MANAGER Jasvir Pickens MD CHEMISTRY [facility] [address] [place] [address] from Last 3 Months or Most Recently Relevant to Health Maintenance Advance Directives * Full Code (Latest Code Status on File) Date Activated Date Inactivated Comments 01/09/2024 7:44 AM 01/09/2024 6:26 PM Question Answer Comments Code Status Discussion: Reviewed Preferences Care Teams Furniture Inspector Relationship Specialty Start Date End Date Keira Irvin MD [address] [place] [address] PCP - General Family Practice 01/08/24
--- OUTSIDE RECORDS SUMMARY | 2024-05-17 01:22 | XMS_ITS | Encounter Summary ---
Author Organization [facility] Address [address] [place] [address] Care Team Providers Care Family Medicine Resident Name Role Phone Winston Villatoro OD Unavailable Denise Woodson Ra, APRN ASP NET PROGRAMMER Unavailable Denise Woodson Ra, APRN ASP NET PROGRAMMER Primary Care Provid er Usha Simon APRN ASP NET PROGRAMMER Unavailable [phone] Dangelo Salinas MD Unavailable Anastasia Stearns RN Unavailable [phone] Germaine Lopez CHW Unavailable [phone] Lisa Zambrano MD Unavailable [phone] Raul Hoyos MD Unavailable Encounter Details Date Type Department Care Team (Late st Contact Info) Description 05/13/2024 Telephone [facility] [address], [address] [place] [address] Rohit Barcenas MD [address] [place] [address] [address] [place], [place] [address] Social History Tobacco Use Types Packs/Day Years [...] How often do you attend sikh or quaker serv ices? Never 02/28/2024 Do [...] Answer Date Recorded PHQ-2 Score 2 05/05/2024 [facility]ational [facility] Questionnaire [...] in an overnight halfway, or couch-surfing.) Yes 05/16/2024 Are you worried [...] CDT [facility] [address] [place] [phone] Denise Woodson Ra, LINING PRESSER ASP NET PROGRAMMER [address] [place], [place] [id number] 06/08/2024 8:30 AM CDT Office Visit [facility] [address] [place] [phone] Denise Woodson Ra, LINING PRESSER ASP NET PROGRAMMER [address] [place] [address] 06/26/2024 2:40 PM CDT Office Visit [facility] [address] [facility] [address] [place] [phone] Danna Cardenas PA-C [address] [place], [place] [phone] documented as of this encounter Goals Goal [...] Mental Health weekly - PT, OT and SNOW TECHNICIAN - PCP appointment 05/26/24 & 06/08/24 - Stroke Neurology Dr. Hoyos 04/14/24 #[phone] - Epilepsy Neurology Dr. Barcenas 05/05/24 follow up recommended in 2 months: 07/05/24 TBD. #[phone] - Vascular Dr. Zambrano 05/01/24 - follow up recommended in 6 months: 11/11/24 TBD #[phone]. - MTM if covered by insurance TBD [...] clinic with 08/04 after hours services available. Package Sealer Machine will remain available as needed. documented as of this encounter Visit Diagnoses Not on filedocumented in this encounter Additional Health Concerns Active Problems Noted Date Diagnosed Date Increased risk of re-admission 02/18/2024 Assessment Noted Time PHQ-9 Depression Total Score: 5 03/17/20 9:45 AM CDT documented as of this encounter Care Teams Family Medicine Resident Relationship Specialty Start Date End Date Winston Villatoro OD [facility] [place] [address] [place] [address] PCP - Ophthalmology Ophthalmology 02/11/13 Denise Woodson Ra, APRN ASP NET PROGRAMMER [address] [place] [address] PCP - General Family Practice 09/21/20 Denise Woodson Ra, APRN ASP NET PROGRAMMER [address] [place] [address] Assigned PCP 07/17/20 Usha Simon APRN ASP NET PROGRAMMER [address] [facility] [id number] [place] [address] Nurse Practitioner Neurological Surgery 01/24/24 Dangelo Salinas MD [address] [place] [address] Neurology 01/27/24 Anastasia Stearns, RN Lead Package Sealer Machine 02/06/24 Germaine Lopez, [facility] Community Health Worker Primary Care - CC 02/18/24 Lisa Zambrano MD [address] [place] [address] Assigned Heart and Vascular Provider 05/08/24 Raul Hoyos MD [address] [id number] [place], [place] [address] Assigned Neuroscience Provider 05/08/24 documented as of this encounter
--- OUTSIDE RECORDS SUMMARY | 2024-05-17 01:22 | XMS_ITS ---
Care Plan Created on: May 17, 2024 [place] : 1975 Sex: Female Author Organization [facility] Address [address] [place] [address] Care Team Providers Care Natural Sciences Professor Name Role Phone Winston Villatoro OD Unavailable Denise Woodson Ra, APRN PRODUCTION GRAPHIC DESIGNER Unavailable [phone] Denise Woodson Ra, APRN PRODUCTION GRAPHIC DESIGNER Primary Care Provid er Usha Simon APRN PRODUCTION GRAPHIC DESIGNER Unavailable [phone] Dangelo Salinas MD Unavailable Anastasia Stearns RN Unavailable Germaine Lopez CHW Unavailable Lisa Zambrano MD Unavailable [phone] Raul Hoyos MD Unavailable Active Problems Problem [...] Health weekly - PT, OT and MEDICAL ASSISTANT CARDIOLOGY - PCP appointment 05/26/24 & 06/08/24 - Stroke Neurology Dr. Hoyos 04/14/24 #[phone] - Epilepsy Neurology Dr. Barcenas 05/05/24 follow up recommended in 2 months: 07/05/24 TBD. #[phone] - Vascular Dr. Zambrano 05/01/24 - follow up recommended in 6 months: 11/11/24 TBD #[phone]. - MTM if covered by insurance TBD [...] clinic with / after hours services available. Linux Support Engineer will remain available as needed. Interventions Intervention [...]
--- OUTSIDE RECORDS SUMMARY | 2024-05-17 01:22 | XMS_ITS | Referral Summary ---
Author Organization [facility] Address [address] [place] [address] Care Team Providers Care Target Aircraft Technician Name Role Phone ShaunaWinston moralez OD Unavailable [phone] Denise Woodson Ra, APRN LEAD INVESTIGATOR Unavailable [phone] Denise Woodson Ra, APRN LEAD INVESTIGATOR Primary Care Provid er Usha Simon APRN LEAD INVESTIGATOR Unavailable [phone] Dangelo Salinas MD Unavailable Anastasia Stearns RN Unavailable Germaine Lopez Unavailable [phone] Lisa Zambrano MD Unavailable [phone] Raul Hoyos MD Unavailable Encounters Date Type Department Care Team Description 05/15/2024 MyC Medical Advice [facility] [address] 3rd [place] [address] Stacey Kelley, GEMA 05/15/2024 Telephone [facility] [address] [place] [address] Denise Woodson Ra, APRN CNP Forms (disability) 05/14/2024 9:06 PM CDT - Present Hospital Encounter [facility] Neuroscience Unit [address] [place] [place] [address] Vlad Rehman MD Yang, Johnathone, MD Gastroesophageal reflux disease with esophagitis without hemorrhage (Primary Dx); Chest pain, unspecified type; Dural arteriovenous fistula; History of seizure; History of stroke; Pain of right upper extremity 05/13/2024 MyC Medical Advice Initial Department [facility] 05/13/2024 MyC Medical Advice Initial Department [facility] 05/13/2024 Telephone [facility] [address], [address] [place] [phone] Rohit Barcenas MD 05/13/2024 MyC Medical Advice [facility] Care Coordination [address] [place] [address] Anastasia Stearns RN 05/12/2024 Travel 05/12/2024 5:25 PM CDT - 05/12/2024 6:59 PM CDT Emergency [facility] [address] [place] [address] Chinedu Moon MD Discharge Disposition: Left Without Being Seen 05/12/2024 Telephone [facility] [address] [place] [address] Denise Woodson Ra, APRN LEAD INVESTIGATOR 05/12/2024 MyC Medical Advice [facility] [address] [place] [address] Denise Woodson Ra, AIRCRAFT GENERAL REPAIR MECHANIC LEAD INVESTIGATOR Forms ([employer] - Disabi... 05/12/2024 Telephone [facility] [place] [address] [facility] 3rd [place] [address] Raul Hoyos MD Symptoms (Stroke symptoms per pt ) 05/12/2024 [facility] [address] [place] [address] Denise Woodson Ra, APRN LEAD INVESTIGATOR 05/11/2024 MyC Medical Advice [facility] [address] [place] [address] Denise Woodson Ra, APRN LEAD INVESTIGATOR 05/10/2024 10:48 AM CDT - 05/11/2024 12:03 AM CDT Emergency [facility] Emergency Department [address] [place] [address] Todd Osborn MD Hackner, Michelle C, MD Intractable headache, unspecified chronicity pattern, unspecified headache type; Dizziness Discharge Disposition: Home or Self Care 05/10/2024 Travel 05/08/2024 MyC Medical Advice [facility] [place] [address] [facility] 3rd [place] [phone] Robin Zepeda MD 05/06/2024 MyC Medical Advice [facility] [address] [place] [phone] Rohit Barcenas MD 05/05/2024 Travel 05/05/2024 2:30 PM CDT Office Visit [facility] [address] [place] [phone] Rohit Barcenas MD 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) (Primary Dx); Fibromuscular dysplasia (H24); Cerebrovascular accident (CVA), unspecified mechanism (H) 05/04/2024 Travel 05/01/2024 Travel 05/01/2024 10:30 AM CDT Office Visit [facility] [place] [address] Jonathon Hampton [address] [place] [phone] Lisa Zambrano MD Fibromuscular dysplasia (H24) ?? 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[place] [address] 04/30/2024 Travel 04/30/2024 Refill [facility] [address] [place] [phone] Denise Woodson Ra, BARRERA HUBBARD Medication Refill 04/28/2024 Travel 04/27/2024 Telephone [facility] [address] [place] [phone] Denise Woodson Ra, APRN CNP Medication Refill 04/15/2024 Travel 04/15/2024 8:45 AM CDT Therapy Visit [address] [phone] Denise Woodson Ra, Isabel Neely CNP, OTR Cerebrovascular accident (CVA), unspecified mechanism (H) (Primary Dx) 04/15/2024 9:30 AM CDT Therapy Visit [address] [phone] Danya You, PA Danya Restrepo, AGENCY MANAGER Cognitive communication deficit (Primary Dx); Cerebrovascular accident (CVA), unspecified mechanism (H) 04/14/2024 Travel 04/14/2024 Telephone [facility] [place] [address] Jonathon Cardona [address] [place] [phone] Nurse, [facility] Referral (Pt referred to [facility] by Dr. Raul Hoyos for fibromuscular dysplasia.) 04/14/2024 9:30 AM CDT Virtual Visit [facility] [address] 3rd [place] [address] Raul Hoyos MD History of CVA (cerebrovascular accident) (Primary Dx); Fibromuscular dysplasia (H24) 04/13/2024 12:00 PM CDT Virtual Visit [facility] [address] [place] [phone] Denise Woodson Ra, AIRCRAFT GENERAL REPAIR MECHANIC LEAD INVESTIGATOR Cerebrovascular accident (CVA), unspecified mechanism (H) (Primary Dx) 04/08/2024 Telephone [facility] [address] [place] [phone] Denise Woodson Ra, APRN LEAD INVESTIGATOR 04/06/2024 MyC Medical Advice Initial Department [facility] 04/02/2024 Travel 04/02/2024 Telephone [facility] Neurology [address] [place] [address] Raul Hoyos MD Clinic Care Coordination - Follow-up 04/02/2024 MyC Medical Advice [facility] Neurology [address] [place] [address] Liliane Cobos 04/02/2024 2:15 PM CDT Therapy Visit [address] [phone] Danya You PA Peterson, Megan A, OTR Cerebrovascular accident (CVA), unspecified mechanism (H) (Primary Dx) 04/02/2024 3:15 PM CDT Therapy Visit [address] [phone] Danya You PA Raasch, Sharon, AGENCY MANAGER Cognitive communication deficit (Primary Dx); Cerebrovascular accident (CVA), unspecified mechanism (H) 04/02/2024 4:15 PM CDT Therapy Visit [address] [phone] Danya You, Delicia Higgins, PT Cerebrovascular accident (CVA), unspecified mechanism (H) (Primary Dx) 04/01/2024 Travel 03/31/2024 Refill [facility] [address] [place] [phone] Denise Woodson Ra, APRN CNP Medication Refill 03/26/2024 Travel 03/26/2024 1:30 PM CDT Therapy Visit [address] [phone] Danya You, Isabel Payan, OTR Cerebrovascular accident (CVA), unspecified mechanism (H) (Primary Dx) 03/26/2024 2:30 PM CDT Therapy Visit [address] [phone] Danya You, Charis Thomas, AGENCY MANAGER Cognitive communication deficit (Primary Dx); Cerebrovascular accident (CVA), unspecified mechanism (H) 03/26/2024 3:30 PM CDT Therapy Visit [address] [phone] Danya You, Delicia Higgins, PT Cerebrovascular accident (CVA), unspecified mechanism (H) (Primary Dx) 03/18/2024 Travel 03/18/2024 1:21 PM CDT - 03/18/2024 11:59 PM CDT Hospital Encounter [facility] [address] [place] [phone] Denise Woodson Ra, APRN CNP Fibromuscular dysplasia (H24) Discharge Disposition: Home or Self Care 03/17/2024 10:00 AM CDT Office Visit [address] [address] Denise Woodson Ra, APRN CNP History of seizure (Primary Dx); Cerebrovascular accident (CVA), unspecified mechanism (H) 03/17/2024 1:30 PM CDT Therapy Visit [address] [phone] KenyattaDanya PA Peterson, Megan A, OTR Cerebrovascular accident (CVA), unspecified mechanism (H) (Primary Dx) 03/17/2024 2:30 PM CDT Therapy Visit [address] [address] Danya You, Charis Thomas, AGENCY MANAGER Cognitive communication deficit (Primary Dx); Cerebrovascular accident (CVA), unspecified mechanism (H) 03/17/2024 4:00 PM CDT Therapy Visit [address] [phone] Danya You, Vanessa Prescott, PT Cerebrovascular accident (CVA), unspecified mechanism (H) (Primary Dx) 03/16/2024 Travel 03/16/2024 Telephone [facility] [address] [phone] Raul Hoyos MD Appointment (Follow up ) 03/16/2024 MyC Medical Advice [facility] [address] [phone] Ora Bazan 03/11/2024 Travel 03/11/2024 2:15 PM CDT Therapy Visit [address] [phone] Danya You PA Peterson, Megan A, OTR Cerebrovascular accident (CVA), unspecified mechanism (H) (Primary Dx) 03/11/2024 3:00 PM CDT Therapy Visit [address] [phone] Danya You PA Raasch, Sharon, AGENCY MANAGER Cognitive communication deficit (Primary Dx); Cerebrovascular accident (CVA), unspecified mechanism (H) 03/11/2024 4:15 PM CDT Therapy Visit [address] [address] Danya You PA Hoyt, Kelly, PT Cerebrovascular accident (CVA), unspecified mechanism (H) (Primary Dx) 03/09/2024 Telephone [facility] [address] 3rd [place] [address] Raul Hoyos MD Call Back (Follow up appointment ) 03/05/2024 Travel 03/05/2024 1:30 PM CDT Therapy Visit [address] [phone] Danya You PA Peterson, Megan A, OTR Cerebrovascular accident (CVA), unspecified mechanism (H) (Primary Dx) 03/05/2024 3:15 PM CDT Therapy Visit [address] [phone] Danya You PA Raasch, Sharon, AGENCY MANAGER Cerebrovascular accident (CVA), unspecified mechanism (H) (Primary Dx); Cognitive communication deficit 03/05/2024 4:15 PM CDT Therapy Visit [address] [phone] Danya You, Delicia Higgins, PT Cerebrovascular accident (CVA), unspecified mechanism (H) (Primary Dx) 03/04/2024 Travel 03/03/[address] [address] Denise Woodson Ra, APRN LEAD INVESTIGATOR Medication Refill 03/03/2024 Travel 03/03/2024 11:14 AM CDT - 03/03/2024 2:19 PM CDT Emergency [facility] [address] [place] [phone] Brayan Reich MD Right flank pain; Right sided abdominal pain Discharge Disposition: Home or Self Care 03/02/2024 Orders Only [facility] [address] [facility] [address] [place] [address] Liliane Mcnair PA-C Hematuria, unspecified type (Primary Dx) 02/28/2024 10:46 AM CDT - 02/28/2024 11:59 PM CDT Hospital Encounter [facility] [address] [place] [address] Janna Jo APRN CNP Flank pain; Abdominal pain, epigastric Discharge Disposition: Home or Self Care 02/28/2024 10:00 AM CDT Office Visit [facility] [address] [facility] [address] [place] [phone] Janna Jo APRN CNP Flank pain; Abdominal pain, epigastric; TSH elevation 02/27/2024 Travel 02/27/2024 3:00 PM CDT Office Visit [address] [place] [address] Liliane Mcnair PA-C Flank pain (Primary Dx); Abdominal pain, epigastric; Cerebrovascular accident (CVA), unspecified mechanism (H) 02/27/2024 MyC Medical Advice [address] [address] Denise Woodson Ra, APRN LEAD INVESTIGATOR 02/24/2024 Travel 02/19/2024 Travel 02/19/2024 3:00 PM CDT Therapy Visit [facility] [address] [address] Danya You PA Peterson, Megan A, OTJah Cerebrovascular accident (CVA), unspecified mechanism (H) (Primary Dx) 02/17/2024 Travel 02/17/2024 2:45 PM CDT Therapy Visit [facility] [address] [place] [address] Danya You, Aliya [place], AGENCY MANAGER Cerebrovascular accident (CVA), unspecified mechanism (H) (Primary Dx); Cognitive communication deficit 02/15/2024 Travel from Last 3 Months Allergies Active [...] times daily as needed for constipation 01/22/20 24 Suspended Additional Information methyl salicylate-mentho l (ICY [...] Name Administration Dates Next Due COVID-19 Vaccine (Newswired) 11/20/2020 Flu, Unspecified 07/11/2017,07/02/2014 HepB 03/03/2012,11/07/2011,10/04/2011 Hepatitis [...] Never 02/28/2024 How often do you attend methodist or yarsani serv ices? Never 02/28/2024 Do you belong to any clubs o r organizations such as methodist groups, unions, fraternal or athletic groups, or [...] Answer Date Recorded PHQ-2 Score 2 05/05/2024 [facility] of Occupat ional Health - Occupational Stress [...] in an overnight fpc, or couch-surfing.) Yes 05/16/2024 Are you worried [...] Description 05/26/2024 8:30 AM CDT Office Visit [facility] [address] [place] [phone] Denise Woodson Ra, AIRCRAFT GENERAL REPAIR MECHANIC LEAD INVESTIGATOR [address] [place], [place] [phone] 06/08/2024 8:30 AM CDT Office Visit [facility] [address] [place] [phone] Denise Woodson Ra, AIRCRAFT GENERAL REPAIR MECHANIC LEAD INVESTIGATOR [address] [place] [address] 06/26/2024 2:40 PM CDT Office Visit [facility] [address] [facility] [address] [place] [phone] Danna Cardenas PA-C [address] [place], [place] [address] Goals Goal Patient Goal Type Associated Problems [...] Mental Health weekly - PT, OT and AGENCY MANAGER - PCP appointment 05/26/24 & 06/08/24 - Stroke Neurology Dr. Hoyos 04/14/24 #[phone] - Epilepsy Neurology Dr. Barcenas 05/05/24 follow up recommended in 2 months: 07/05/24 TBD. #[phone] - Vascular Dr. Zambrano 05/01/24 - follow up recommended in 6 months: 11/11/24 TBD #[phone]. - MTM if covered by insurance TBD [...] clinic with 24/7 after hours services available. Process Operator will remain available as needed. Procedures The patient is currently admitted. The information in this section might not be complete until the patient is discharged. Procedure Name Priority Date/Time Associated Diagnosis Comments MR BRAIN W/O & W CONTRAST Routine 05/15/2024 4:01 PM CDT MRA BRAIN ([place]) W/O CONTRAST Routine 05/15/2024 4:01 [...] less likely. MIRELA TINEO MD SYSTEM ID: ??[id number] Narrative 05/15/2024 4:10 PM CDT MRI BRAIN [...] less likely. MIRELA TINEO MD SYSTEM ID: [id number] Stevo Islas MD IMG MRI ORD ERABLES * MRA Neck (Car[place]) wo & w Contrast (05/15/2024 4:01 PM CDT) Anatomical Region Laterality Modality Neck, SUBRAD MR NEURO, UMP MR NEURO, RAD MR Magnetic Resonance Impressions 05/15/2024 4:12 PM CDT IMPRESSION: ??Normal MR angiogram of the neck. MIRELA TINEO MD SYSTEM ID: ??[id number] Narrative 05/15/2024 4:12 PM CDT MRA NECK WITHOUT AND WITH CONTRAST ??05/15/2024 4:01 PM HISTORY: left sided tingling, eb and flow since yesterday history of prior CVA mri head done last at [facility] TECHNIQUE: 2D [id number] MR angiogram of the neck without contrast [...] CVA mri head done last th at [facility] TECHNIQUE: 2D [id number] MR angiogram of the neck without contrast [...] the neck. MIRELA TINEO MD SYSTEM ID: [id number] Delicia Saini APRN LEAD INVESTIGATOR IMG MRI ORDERA BLES * MRA Brain ([place]) wo Contrast (05/15/2024 4:01 PM CDT) Anatomical Region Laterality Modality Head, SUBRAD MR NEURO, UMP MR NEURO, RAD MR Magnetic Resonance Impressions 05/15/2024 4:17 PM CDT IMPRESSION: ??No hemodynamically significant stenosis in the head or evidence of acute vascular injury. ?? MIRELA TINEO MD SYSTEM ID: ??[id number] Narrative 05/15/2024 4:17 PM CDT MR ANGIOGRAM OF THE HEAD WITHOUT CONTRAST ?? 05/15/2024 4:01 PM HISTORY: eb/flow of left sided heaviness, tingling, since yesterday TECHNIQUE: ??3D [id number]-[id number] MR angiogram of the head without contrast. [...] sided heaviness, tingling, since yesterday TECHNIQUE: 3D [id number] MR angiogram of the head without contrast. [...] vascular injury. MIRELA TINEO MD SYSTEM ID: [id number] Delicia Saini AIRCRAFT GENERAL REPAIR MECHANIC LEAD INVESTIGATOR IMG MRI ORDERA BLES * NM Lexiscan [...] wall motion is normal. Christen Peng MD [facility] [place] ORDERABLES * CBC with platelets and differential (05/15/2024 6:25 AM CDT) Only the most recent of5 resultswithin the time period is included. [facility] WBC Count 5.4 4.0 - 11.0 10e3/uL 05/15/2024 7:01 AM CDT LABORATORY RBC Count 4.37 3.80 - 5.20 10e6/uL 05/15/2024 7:01 AM CDT LABORATORY Hemoglobin 13.6 11.7 - 15.7 g/dL 05/15[facility]2024 [facility] Hematocrit 40.8 35.0 - 47.0 % 05/15/2024 7:01 [facility] MCV 93 78 - 100 fL 05/15/2024 7:01 [facility] MCH 31.1 26.5 - 33.0 pg 05/15/2024 7:01 [facility] MCHC 33.3 31.5 - 36.5 g/dL 05/15/2024 7:01 [facility] RDW 11.7 10.0 - 15.0 % 05/15/2024 7:01 AM [facility] Platelet Count 172 150 - 450 10e3/uL 05/15/2024 7:01 AM [facility] % Neutrophils 49 % 05/15/2024 7:01 AM [facility] % Lymphocytes 35 % 05/15/2024 7:01 AM [facility] % Monocytes 6 % 05/15/2024 7:01 AM [facility] % Eosinophils 8 % 05/15/2024 7:01 AM [facility] % Basophils 1 % 05/15/2024 7:01 AM [facility] % Immature Granulocytes 0 % 05/15/2024 7:01 [facility] NRBCs per 100 WBC 0 <1 /100 024 7:01 AM [facility] Absolute Neutrophils 2.7 1.6 - 8.3 10e3/uL 05/15/2024 7:01 AM [facility] Absolute Lymphocytes 1.9 0.8 - 5.3 10e3/uL 05/15/2024 7:01 AM [facility] Absolute Monocytes 0.3 0.0 - 1.3 10e3/uL 05/15/2024 7:01 AM [facility] Absolute Eosinophils 0.4 0.0 - 0.7 10e3/uL 05/15/2024 7:01 AM [facility] Absolute Basophils 0.0 0.0 - 0.2 10e3/uL 05/15/2024 7:01 AM [facility] Absolute Immature Granulocytes 0.0 <=0.4 10e3/uL 05/15/2024 7:01 AM [facility] Absolute NRBCs 0.0 10e3/uL 05/15/2024 7:01 AM CDT LABORATORY Blood STRUCTURE OF RIGHT HAND / Unknown Venipuncture / Unknown 05/15/2024 6:25 AM CDT 05/15/2024 6:57 AM CDT Christen Peng MD LAB - BLOOD ORDERABL ES LABORATORY [facility] Acute Care Lab [address] 1[address] floor, [address] [place] [address], [facility] [phone] * Lipid panel reflex to direct LDL [...] Peng MD LAB - BLOOD ORDERABL ES [facility]U LABORATORY [facility] [place] Core Lab [address] [facility], [address] [place] [address], [facility] LABORATORY [facility] Acute Care Lab [address] 1st floor, [address] [place] [address], [facility] [phone] * Basic metabolic panel (05/15/2024 6:25 AM CDT) Only the most recent of2 resultswithin the time period is included. [facility] Sodium 141 135 - 145 mmol/L 05/15/2024 7:26 AM [facility] LABORATORY Potassium 4.5 3.4 - 5.3 mmol/L 05/15/2024 7:26 AM [facility] LABOR[facility]ORY Chloride 106 98 - 107 mmol/L 05/15/2024 7:26 AM [facility] LABORATORY Carbon Dioxide (CO2) 27 22 - 29 mmol/L 05/15/2024 7:26 AM [facility] LAB[facility] Anion Gap 8 7 - 15 mmol/L 05/15/2024 7:26 AM [facility] Urea Nitrogen 15.4 6.0 - 20.0 mg/dL 05/15/2024 7:26 AM [facility] LABOR[facility]ORY Creatinine 0.90 0.51 - 0.95 mg/dL 05/15/2024 7:26 AM [facility] LABOR[facility]ORY GFR Estimate 79 >60 mL/min/1.7 3m2 05/15/2024 7:26 AM [facility] Comment:eGFR calculated usin 2020 CKD-EPI equation. Calcium 9.1 8.8 - 10.4 mg/dL 05/15/2024 7:26 AM [facility] Comment:Reference intervals for this test were [...] MD LAB - BLOOD ORDERABL ES LABORATORY [facility] Acute Care Lab [address] floor, [address] [place] [address], [facility] [phone] * (ABNORMAL) Keppra (Levetiracetam) Level (05/10/2024 6:49 PM CDT) Keppra (Levetiracetam ) Level 7.6(L) 10.0 - 40.0 ??g/mL 05/10/2024 7:32 PM CDT LABORATORY Blood BLOOD SPECIMEN / Unknown Venipuncture / Unknown 05/10/2024 6:49 PM CDT 05/10/2024 6:52 PM CDT Felicita Rae MD LAB - BLOOD ORDERA BLES LABORATORY [facility] [place] Core Lab [address] [facility], [address] [place] [address] * CTA Head Neck with Contrast (05/10/2024 [...] upper aortic arch through the [place]. This CT angiogram data was [...] upper aortic arch through the [place]. This CT angiogram data was [...] the vertex were obtained without intravenous contrast. Acid Changer (topogram) image(s) also obtained and reviewed. FINDINGS: [...] the vertex were obtained without intravenous contrast. Acid Changer (topogram) image(s) also obtained and reviewed. FINDINGS: [...] findings. MAE NIETO MD Todd Osborn MD [facility] [place] ORDERABLES * Troponin T, High Sensitivity [...] - BLOOD ORDERABL ES Performing Organization Address City/[facility]/ZIP Co de Phone Number LABORATORY [facility] Core Lab [address] [facility], [address] * INR (05/10/2024 2:34 PM CDT) INR 0.92 0.85 - 1.15 05/10/2024 2:54 PM CDT LABORATORY Blood STRUCTURE OF LEFT HAND / Unknown Venipuncture / Unknown 05/10/2024 2:34 PM CDT 05/10/2024 2:38 PM CDT Todd Osborn MD LAB - BLOOD ORDERABL ES Performing Organization Address [facility] Co de Phone Number LABORATORY [facility] Core Lab [address] [facility], [address] * Partial thromboplastin time (05/10/2024 2:34 PM CDT) aPTT 25 22 - 38 Seconds 05/10/2024 2:54 PM CDT U LABORATORY Blood STRUCTURE OF LEFT HAND / Unknown Venipuncture / Unknown 05/10/2024 2:34 PM CDT 05/10/2024 2:38 PM CDT Todd Osborn MD LAB - BLOOD ORDERABL ES LABORATORY [facility] [place] Core Lab [address] [facility], [address] [place] [phone] * Glucose by meter (05/10/2024 2:33 PM CDT) GLUCOSE BY METER POCT 78 70 - 99 mg/dL 05/10/2024 2:40 PM CDT UU LABORATORY POC Blood, Capillary BLOOD SPECIMEN / Unknown 05/10/2024 2:33 PM CDT 05/10/2024 2:40 PM CDT Todd Osborn MD LAB - BEAKER POCT Performing Organization Address City/[facility]/ZIP Co de Phone Number UU LABORATORY POC [facility] Core Lab [address] [facility], [address] [place] [phone] * EKG 12-lead, tracing only (05/10/2024 11:25 [...] RESULTS QTc 396 ms RADIOLOGY RESULTS P [place] 67 degrees RADIOLOGY RESULTS R AXIS 84 degrees RADIOLOGY RESULTS T [place] 34 degrees RADIOLOGY RESULTS Interpretation ECG Sinus rhythm Possible Left atrial enlargement Borderline ECG Unconfirmed report - interpretation of this ECG is computer generated - see medical record for final interpretation Confirmed by - EMERGENCY ROOM, PHYSICIAN ([id number]), sound editor MAILE STEINER ([id number]) on 05/10/2024 11:53:46 AM RADIOLOGY RESULTS 05/10/2024 [...] identified. SINGH WORLEY MD Denise Woodson APRN [facility] IM CT ORDER NASRIN * CT Abdomen [...] is identified. PETRONA HARRIS MD SYSTEM ID: [id number] Narrative 03/03/2024 2:[address] ABDOMEN [...] is identified. PETRONA HARRIS MD SYSTEM ID: [id number] Brayan Reich MD [facility] [place] * Comprehensive metabolic panel (03/03/2024 11:49 AM CDT) Only the most recent of3 resultswithin the time period is included. [facility] Signature Sodium 140 135 - 145 [...] - 5.2 g/dL 03/03/2024 1:14 PM CDT LABORATORY Bilirubin Total 1.0 <=1.2 mg/dL 03/03/2024 1:14 PM CDT LABORATORY Blood BLOOD SPECIMEN / Unknown Venipuncture / Unknown 03/03/2024 11:49 AM CDT 03/03/2024 11:53 AM CDT Brayan Reich MD LAB - BLOOD ORDERABL ES Performing Organization Address [facility]/ZIP Co de Phone Number LABORATORY [facility] Acute Care Lab [address] Lab (1st floor, no room number) [place] [phone] * HCG qualitative urine (03/03/2024 10:27 AM CDT) hCG Urine Qualitative Negative Negative PRATEEK 03/03/2024 12:05 PM CDT LABORATORY Comment:This test is for scr eening purposes. Results should be interpreted along with the clinical picture. Confirmation testing is available if warranted by ordering [id number], HCG Quantitative . Urine URINE SPECIMEN OBTAINED BY CLEAN CATCH PROCEDURE / Unknown Non-blood Collection / Unknown 03/03/2024 10:27 AM CDT 03/03/2024 10:33 AM CDT Brayan Reich MD LAB - URINE ORDERABL ES Performing Organization Address [facility]/ZIP Co de Phone Number LABORATORY [facility] [address] Lab (1st floor, no room number) [place] [phone] * (ABNORMAL) UA with Microscopic reflex to [...] mg/dL 03/03/2024 10:40 AM CDT LABORATORY Specific [place] Urine 1.005 1.003 - 1.035 03/03/2024 10:40 [...] MD LAB - URINE ORDERABL ES LABORATORY [facility] Acute Care Lab [address] [place] Lab (1st floor, no room number) [place] [address], [facility] * Erythrocyte sedimentation rate auto (02/28/2024 10:38 AM CDT) Erythrocyte Sedimentation Rate 20 0 - 20 mm/hr 02/28/2024 11:18 AM CDT RH LABORATORY Blood VENOUS LINE / Unknown Venipuncture / Unknown 02/28/2024 10:38 AM CDT 02/28/2024 10:47 AM CDT Janna Jo APRN LEAD INVESTIGATOR LAB - BLOOD ORDERABLES LABORATORY [facility] Acute Care Lab [address] Lab (1st floor, no room number) [place] [phone] [place] [address] * (ABNORMAL) CRP inflammation (02/28/2024 10:38 AM CDT) CRP Inflammation 6.29(H) <5.00 mg/L 02/28/2024 11:39 AM CDT RH LABORATORY Blood VENOUS LINE / Unknown Venipuncture / Unknown 02/28/2024 10:38 AM CDT 02/28/2024 10:47 AM CDT Janna Jo APRN LEAD INVESTIGATOR LAB - BLOOD ORDERABLES [facility] Care Lab [address] Lab (1st floor, no room number) [place] [phone] [place] [address] * TSH with free T4 reflex (02/28/2024 10:27 AM CDT) TSH 3.87 0.30 - 4.20 uIU/mL 02/28/2024 11:56 AM CDT RH LABORATORY Blood ARTERIAL LINE / Unknown Venipuncture / Unknown 02/28/2024 10:27 AM CDT 02/28/2024 11:08 AM CDT Janna Jo APRN LEAD INVESTIGATOR LAB - BLOOD ORDERABLES [facility] Acute Care Lab [address] Lab (1st floor, no room number) [place] [phone] [place] [address] * Lipase (02/27/2024 5:27 PM CDT) Lipase 24 13 - 60 U/L 02/28/2024 8:32 PM CDT UU LABORATORY Blood BLOOD SPECIMEN / Unknown Venipuncture / Unknown 02/27/2024 5:27 PM CDT 02/27/2024 5:27 PM CDT Liliane Mcnair PA-C LAB - BLOOD ORDER NASRIN UU LABORATORY [facility] [place] Core Lab [address] [facility] [address] [facility], Room [address] [place] [address] * (ABNORMAL) UA Microscopic with Reflex to [...] LAB - URINE ORDER NASRIN EA LABORATORY [facility] [place] Lab [address] [facility] [address] [place] [address], [facility] [phone] * (ABNORMAL) UA Macroscopic with reflex to [...] 02/27/2024 3:52 PM CDT EA LABORATORY Specific [place] Urine 1.025 1.003 - 1.035 02/27/2024 3:52 [...] LAB - URINE ORDER NASRIN EA LABORATORY [facility] - [place] Lab [address] [facility] [address] [place] [id number] [phone] * [place] Screen Bilateral w/Mat (04/25/2022 5:03 [...] patient. JEVON HOWELL MD Denise Woodson APRN LEAD INVESTIGATOR IMG MAM[facility] PHY ORDERABLES from Last 3 Months or Most Recently Relevant to Health Maintenance Additional Health Concerns Active Problems Noted Date Diagnosed Date Increased risk of re-admission 02/18/2024 Advance Directives For more information, please contact: [phone] * Full Code (Latest Code Status on File) Date Activated Date Inactivated Comments 05/14/2024 9:57 PM All basic and advanced life-sustaining interventions are performed as appropriate Question Answer Comments Code status determined by: Other (please afia t) * Full Code Date Activated Date Inactivated [...] patie nt/ legal decision maker Care Teams Target Aircraft Technician Relationship Specialty Start Date End Date Winston Villatoro OD [facility] [place] [address] [place] [address] PCP - Ophthalmology Ophthalmology 02/11/13 Denise Woodson Ra, AIRCRAFT GENERAL REPAIR MECHANIC LEAD INVESTIGATOR [address] [place] [address] PCP - General Family Practice 09/21/20 Denise Woodson Ra, AIRCRAFT GENERAL REPAIR MECHANIC LEAD INVESTIGATOR [address] [place] [address] Assigned PCP 07/17/20 Usha Simon APRN LEAD INVESTIGATOR [address] [address] Nurse Practitioner Neurological Surgery 01/24/24 Dangelo Salinas MD [address] [place] [address] Neurology 01/27/24 Anastasia Stearns, RN Lead Process Operator 02/06/24 Germaine Lopez, W Community Health Worker Primary Care - CC 02/18/24 Lisa Zambrano MD [address] [place] [address] Assigned Heart and Vascular Provider 05/08/24 Raul Hoyos MD [address] [id number] Assigned Neuroscience Provider 05/08/24
--- OUTSIDE RECORDS SUMMARY | 2024-05-17 01:22 | XMS_ITS | Encounter Summary ---
Author Organization [place] Address [address] [place] [address] Care Team Providers Care Rotary Engine Assembler Name Role Phone ShaunaWinston OD Unavailable [phone] Denise Woodson Ra, APRN VOLUNTEER SERVICES MANAGER Unavailable + [phone] Denise Woodson Ra, APRN VOLUNTEER SERVICES MANAGER Primary Care Provid er Usha Simon APRN VOLUNTEER SERVICES MANAGER Unavailable [phone] Dangelo Salinas MD Unavailable Anastasia Stearns RN Unavailable [phone] Germaine Lopez CHW Unavailable [phone] Lisa Zambrano MD Unavailable Raul Hoyos MD [...] How often do you attend hinduism or amish serv ices? Never 02/28/2024 Do you belong [...] Answer Date Recorded PHQ-2 Score 2 05/05/2024 [facility] - Occupational Stress Questionnaire Answer Date Recorded [...] in an overnight custodial, or couch-surfing.) Yes 05/16/2024 Are you worried [...] 05/26/2024 8:30 AM CDT Office Visit [facility] [address] [place] [phone] Denise Woodson Ra, BARRERA VOLUNTEER SERVICES MANAGER [address] [place] [address] 06/08/2024 8:30 AM CDT [facility] [address] [place] [phone] Denise Woodson Ra, BARRERA VOLUNTEER SERVICES MANAGER [address] [place] [address] 06/26/2024 2:40 PM CDT Office Visit [facility] [address] [facility] [address] [place] [phone] Danna Cardenas PA-C [address] [place] [address] documented as of this encounter Goals Goal [...] Mental Health weekly - PT, OT and FILLER IN - PCP appointment 05/26/24 & 06/08/24 - Stroke Neurology Dr. Hoyos 04/14/24 #[phone] - Epilepsy Neurology Dr. Barcenas 05/05/24 follow up recommended in 2 months: 07/05/24 TBD. #[phone] - Vascular Dr. Zambrano 05/01/24 - follow up recommended in 6 months: 11/11/24 TBD #[phone]. - MTM if covered by insurance TBD [...] clinic with 24/7 after hours services available. Procurement Services Manager will remain available as needed. documented as of this encounter Visit Diagnoses Not on filedocumented in this encounter Additional Health Concerns Active Problems Noted Date Diagnosed Date Increased risk of re-admission 02/18/2024 Assessment Noted Time PHQ-9 Depression Total Score: 5 03/17/20 9:45 AM CDT documented as of this encounter Care Teams Rotary Engine Assembler Relationship Specialty Start Date End Date Winston Villatoro OD [facility] [address] [facility] [address] [place] [address] PCP - Ophthalmology Ophthalmology 02/11/13 Denise Woodson Ra MEDICAL COLLECTIONS REPRESENTATIVE VOLUNTEER SERVICES MANAGER [address] [place] [address] PCP - General Family Practice 09/21/20 Denise Woodson Ra MEDICAL COLLECTIONS REPRESENTATIVE VOLUNTEER SERVICES MANAGER [address] [place] [address] Assigned PCP 07/17/20 Usha Simon APRN VOLUNTEER SERVICES MANAGER [address] [id number] Nurse Practitioner Neurological Surgery 01/24/24 Dangelo Salinas MD [address] [place], [place] [id number] Neurology 01/27/24 Anastasia Stearns, RN Lead Procurement Services Manager 02/06/24 Germaine Lopez, W Community Health Worker Primary Care - CC 02/18/24 Lisa Zambrano MD [address] [place] [address] Assigned Heart and Vascular Provider 05/08/24 Raul Hoyos MD [address] [id number] Assigned Neuroscience Provider 05/08/24 documented as of this encounter
--- OUTSIDE RECORDS SUMMARY | 2024-05-17 01:22 | XMS_ITS | Encounter Summary ---
Author Organization [facility] Address [address] [place] [address] Care Team Providers Care Letter Sorting Machine Operator Name Role Phone Winston Villatoro OD Unavailable [phone] Denise Woodson Ra, APRN JEWELRY DRILLING MACHINE OPERATOR Unavailable + [phone] Denise Woodson Ra, APRN JEWELRY DRILLING MACHINE OPERATOR Primary Care Provid er Usha Simon APRN JEWELRY DRILLING MACHINE OPERATOR Unavailable Dangelo Salinas MD Unavailable Anastasia Stearns RN Unavailable [phone] Germaine Lopez CHDulce Unavailable Lisa Zambrano MD Unavailable [phone] Raul Hoyos MD Unavailable Encounter Details Date Type Department Care Team (Late st Contact Info) Description 05/15/2024 [facility] [place] [place] Medical Advice [facility] [address] 3rd [place] [address] Stacey Kelley, RN Social History Tobacco [...] How often do you attend buddhism or jehovah's witness serv ices? Never 02/28/2024 [...] Answer Date Recorded PHQ-2 Score 2 05/05/2024 [facility] - Occupational Stress Questionnaire Answer Date [...] in an overnight retirement, or couch-surfing.) Yes 05/16/2024 Are you worried [...] CDT Office Visit [facility] [address] [place] [phone] Denise Woodson Ra, BARRERA JEWELRY DRILLING MACHINE OPERATOR [address] [place] [address] 06/08/2024 8:30 AM CDT [facility] [address] [place] [phone] Denise Woodson Ra, BARRERA JEWELRY DRILLING MACHINE OPERATOR [address] [place], [place] [address] 06/26/2024 2:40 PM CDT Office Visit [facility] Heart [address] [place] [phone] Danna Cardenas PA-C [address] [place] [address] documented as of this encounter Goals Goal [...] Mental Health weekly - PT, OT and HIV PREVENTION SPECIALIST - PCP appointment 05/26/24 & 06/08/24 - Stroke Neurology Dr. Hoyos 04/14/24 #[phone] - Epilepsy Neurology Dr. Barcenas 05/05/24 follow up recommended in 2 months: 07/05/24 TBD. #[phone] - Vascular Dr. Zambrano 05/01/24 - follow up recommended in 6 months: 11/11/24 TBD #[phone]. - MTM if covered by insurance TBD [...] clinic with 24/7 after hours services available. Vertical Lathe Operator will remain available as needed. documented as of this encounter Visit Diagnoses Not on filedocumented in this encounter Additional Health Concerns Active Problems Noted Date Diagnosed Date Increased risk of re-admission 02/18/2024 Assessment Noted Time PHQ-9 Depression Total Score: 5 03/17/20 9:45 AM CDT documented as of this encounter Care Teams Letter Sorting Machine Operator Relationship Specialty Start Date End Date Winston Villatoro OD [facility] [place] [address] [place] [address] PCP - Ophthalmology Ophthalmology 02/11/13 Denise Woodson Ra VINEYARD TENDER JEWELRY DRILLING MACHINE OPERATOR [address] [place] [address] PCP - General Family Practice 09/21/20 Denise Woodson Ra, VINEYARD TENDER JEWELRY DRILLING MACHINE OPERATOR [address] [place] [address] Assigned PCP 07/17/20 Usha Simon APRN JEWELRY DRILLING MACHINE OPERATOR [address] [address] Nurse Practitioner Neurological Surgery 01/24/24 Dangelo Salinas MD [address] [place] [address] Neurology 01/27/24 Anastasia Stearns, RN Lead Vertical Lathe Operator 02/06/24 Germaine Lopez, W Community Health Worker Primary Care - CC 02/18/24 Lisa Zambrano MD [address] [place] [address] Assigned Heart and Vascular Provider 05/08/24 Raul Hoyos MD [address] [address] Assigned Neuroscience Provider 05/08/24 documented as of this encounter
--- OUTSIDE RECORDS SUMMARY | 2024-05-17 01:22 | XMS_ITS | Encounter Summary ---
Author Organization [facility] Address [address] [place] [address] Care Team Providers Care Spice Miller Name Role Phone ShaunaWinston OD Unavailable [phone] Denise Woodson Ra, APRN VESSEL SCRAPPER HELPER Unavailable + [phone] Denise Woodson Ra, APRN VESSEL SCRAPPER HELPER Primary Care Provid er Usha Simon APRN VESSEL SCRAPPER HELPER Unavailable +- [phone] Dangelo Salinas MD Unavailable Anastasia Stearns RN Unavailable Germaine Lopez CHW Unavailable [phone] Lisa Zambrano MD Unavailable + [phone] Raul Hoyos MD Unavailable Encounter Details Date [...] How often do you attend christian or orthodoxy serv ices? Never 02/28/2024 Do you belong [...] Answer Date Recorded PHQ-2 Score 2 05/05/2024 [facility] [place] of Occupat ional Health - Occupational Stress [...] AM CDT Office Visit [facility] [address] [place] [phone] Denise Woodson Ra, BARRERA VESSEL SCRAPPER HELPER [address] [place] [address] 06/08/2024 8:30 AM CDT Office Visit [facility] [address] [place] [phone] Denise Woodson Ra, BARRERA VESSEL SCRAPPER HELPER [address] [place] [address] 06/26/2024 2:40 PM CDT Office Visit [facility] [address] [facility] [address] [place] [phone] Danna Cardenas PA-C [address] [place], [place] [address] documented as of this encounter Goals Goal [...] Mental Health weekly - PT, OT and VIOLENT CRIMES DETECTIVE - PCP appointment 05/26/24 & 06/08/24 - Stroke Neurology Dr. Hoyos 04/14/24 #[phone] - Epilepsy Neurology Dr. Barcenas 05/05/24 follow up recommended in 2 months: 07/05/24 TBD. #[phone] - Vascular Dr. Zambrano 05/01/24 - follow up recommended in 6 months: 11/11/24 TBD #[phone]. - MTM if covered by insurance TBD [...] clinic with 24/7 after hours services available. Rn Quality will remain available as needed. documented as of this encounter Visit Diagnoses Not on filedocumented in this encounter Additional Health Concerns Active Problems Noted Date Diagnosed Date Increased risk of re-admission 02/18/2024 Assessment Noted Time PHQ-9 Depression Total Score: 5 03/17/20 9:45 AM CDT documented as of this encounter Care Teams Spice Miller Relationship Specialty Start Date End Date Winston Villatoro OD [facility] [place] [address] [place] [address] PCP - Ophthalmology Ophthalmology 02/11/13 Denise Woodson Ra, DIGITAL CIRCUIT DESIGNER VESSEL SCRAPPER HELPER [address] [place] [address] PCP - General Family Practice 09/21/20 Denise Woodson Ra, APRN VESSEL SCRAPPER HELPER [address] [place] [address] Assigned PCP 07/17/20 Usha Simon APRN VESSEL SCRAPPER HELPER [address] [facility], [place] [address] Nurse Practitioner Neurological Surgery 01/24/24 Dangelo Salinas MD [address] [place] [address] Neurology 01/27/24 Anastasia Stearns, RN Lead Rn Quality 02/06/24 Germaine Lopez, W Community Health Worker Primary Care - CC 02/18/24 Lisa Zambrano MD [address] [place] [address] Assigned Heart and Vascular Provider 05/08/24 Raul Hoyos MD [address] [facility], [place] [address] Assigned Neuroscience Provider 05/08/24 documented as of this encounter
--- OUTSIDE RECORDS SUMMARY | 2024-05-17 01:22 | XMS_ITS | Encounter Summary ---
Author Organization [place] Address [address] [place] [address] Care Team Providers Care Hims Clerk Name Role Phone ShaunaWinston OD Unavailable [phone] Denise Woodson Ra, APRN SORTING SUPERVISOR Unavailable + [phone] Denise Woodson Ra, APRN SORTING SUPERVISOR Primary Care Provid er Usha Simon APRN SORTING SUPERVISOR Unavailable [phone] Dangelo Salinas MD Unavailable Anastasia Stearns RN [...] How often do you attend anglican or scientology serv ices? Never 02/28/2024 Do [...] Answer Date Recorded PHQ-2 Score 2 05/05/2024 [facility] - Occupational Stress Questionnaire Answer Date [...] in an overnight mcfp, or couch-surfing.) Yes 05/16/2024 Are you worried [...] CDT Office Visit [facility] [address] [place] [phone] Denise Woodson Ra, BARRERA SORTING SUPERVISOR [address] [place] [address] 06/08/2024 8:30 AM CDT [facility] [address] [place] [phone] Denise Woodson Ra, BARRERA SORTING SUPERVISOR [address] [place] [address] 06/26/2024 2:40 PM CDT Office Visit [facility] Heart [facility] [address] [facility] [address] [place] [phone] Danna Cardenas PA-C [address] [place] [address] documented as of this encounter Goals Goal [...] Mental Health weekly - PT, OT and MONITOR WORKER - PCP appointment 05/26/24 & 06/08/24 - Stroke Neurology Dr. Hoyos 04/14/24 #[phone] - Epilepsy Neurology Dr. Barcenas 05/05/24 follow up recommended in 2 months: 07/05/24 TBD. #[phone] - Vascular Dr. Zambrano 05/01/24 - follow up recommended in 6 months: 11/11/24 TBD #[phone]. - MTM if covered by insurance TBD [...] clinic with 24/7 after hours services available. Mail Carrier And Clerk will remain available as needed. documented as of this encounter Visit Diagnoses Not on filedocumented in this encounter Additional Health Concerns Active Problems Noted Date Diagnosed Date Increased risk of re-admission 02/18/2024 Assessment Noted Time PHQ-9 Depression Total Score: 5 03/17/20 9:45 AM CDT documented as of this encounter Care Teams Hims Clerk Relationship Specialty Start Date End Date Winston Villatoro OD [facility] [address] [facility] [address] [place] [address] PCP - Ophthalmology Ophthalmology 02/11/13 Denise Woodson Ra QUALITY ASSURANCE SUPERVISOR BODY SORTING SUPERVISOR [address] [place] [address] PCP - General Family Practice 09/21/20 Denise Woodson Ra QUALITY ASSURANCE SUPERVISOR BODY SORTING SUPERVISOR [address] [place] [address] Assigned PCP 07/17/20 Usha Simon APRN SORTING SUPERVISOR [address] [phone] Nurse Practitioner Neurological Surgery 01/24/24 Dangelo Salinas MD [address] [place], [place] [address] Neurology 01/27/24 Anastasia Stearns, RN Lead Mail Carrier And Clerk 02/06/24 Germaine Lopez, W Community Health Worker Primary Care - CC 02/18/24 Lisa Zambrano MD [address] [place] [address] Assigned Heart and Vascular Provider 05/08/24 Raul Hoyos MD [address] [id number] Assigned Neuroscience Provider 05/08/24 documented as of this encounter
--- OUTSIDE RECORDS SUMMARY | 2024-05-17 01:22 | XMS_ITS | Encounter Summary ---
Author Organization [facility] Address [address] [place] [address] Care Team Providers [facility] Former Name Role Phone Winston Villatoro OD Unavailable [phone] Denise Woodson Ra, APRN [employer] ARIBA CONSULTANT Unavailable + [phone] Denise Woodson Ra, APRN SAP ARIBA CONSULTANT Primary Care Provid er Usha Simon APRN SAP ARIBA CONSULTANT Unavailable Dangelo Salinas MD Unavailable Anastasia Stearns RN Unavailable Germaine oLpez Unavailable Lisa Zambrano MD Unavailable [phone] Raul Hoyos MD Unavailable Encounter Details Date Type Department Care Team (Late st Contact Info) Description 05/13/2024 [facility] Medical Advice [facility] Care Coordination [address] [place] [phone] Anastasia Stearns, RN Social History Tobacco [...] How often do you attend pentecostal or samaritan serv ices? Never 02/28/2024 Do you belong [...] 2 05/05/2024 [facility] Occupational Stress Questionnaire Answer Date [...] an overnight care home, or couch-surfing.) Yes 05/16/2024 Are you [...] CDT Office Visit [facility] [address] [facility] [place] [place] [phone] Denise Woodson Ra, BARRERA SAP ARIBA CONSULTANT [address] [place] [address] 06/08/2024 8:30 AM CDT [facility] [address] [facility] [place] [phone] Denise Woodson Ra, BARRERA SAP ARIBA CONSULTANT [address] [facility] [place] [address] 06/26/2024 2:40 PM CDT Office Visit [facility] [place] [address] [address] [phone] Danna Cardenas PA-C [address] [place] [address] documented as of this encounter Goals Goal [...] Mental Health weekly - PT, OT and SOLDERING MACHINE OPERATOR - PCP appointment 05/26/24 & 06/08/24 - Stroke Neurology Dr. Hoyos 04/14/24 #[phone] - Epilepsy Neurology Dr. Barcenas 05/05/24 follow up recommended in 2 months: 07/05/24 TBD. #[phone] - Vascular Dr. Zambrano 05/01/24 - follow up recommended in 6 months: 11/11/24 TBD #[phone]. - MTM if covered by insurance TBD [...] with 24/7 after hours services available. Tar And Ammonia Pump Operator will remain available as needed. documented as of this encounter Visit Diagnoses Not on filedocumented in this encounter Additional Health Concerns Active Problems Noted Date Diagnosed Date Increased risk of re-admission 02/18/2024 Assessment Noted Time PHQ-9 Depression Total Score: 5 03/17/20 9:45 AM CDT documented as of this encounter Care Teams Cone Former Relationship Specialty Start Date End Date Winston Villatoro OD [facility] [address] [place] [address] PCP - Ophthalmology Ophthalmology 02/11/13 Denise Woodson Ra, APRN [employer] CONSULTANT [address] [address] [address] PCP - General Family Practice 09/21/20 Denise Woodson Ra, APRN SAP [employer] CONSULTANT [address] [place] [address] Assigned PCP 07/17/20 Usha Simon APRN SAP [employer] CONSULTANT [address] [address] Nurse Practitioner Neurological Surgery 01/24/24 Dangelo Salinas MD [address] [place] [address] Neurology 01/27/24 Anastasia Stearns, RN Lead Tar And Ammonia Pump Operator 02/06/24 Germaine Lopez, W Community Health Worker Primary Care - CC 02/18/24 Lisa Zambrano MD [address] [place] [address] Assigned Heart and Vascular Provider 05/08/24 Raul Hoyos MD [address] [address] Assigned Neuroscience Provider 05/08/24 documented as of this encounter
--- OUTSIDE RECORDS SUMMARY | 2024-05-17 01:22 | XMS_ITS | Encounter Summary ---
Author Organization [place] Address [address] [place] [address] Care Team Providers Care Optical Engineering Manager Name Role Phone ShaunaWinston OD Unavailable Denise Woodson Ra, APRN FINANCIAL BUSINESS ANALYST Unavailable Denise Woodson Ra, APRN FINANCIAL BUSINESS ANALYST Primary Care Provid er Usha Simon SUPERVISOR [employer] FINANCIAL BUSINESS ANALYST Unavailable [phone] Dangelo Salinas MD Unavailable Anastasia Stearns RN Unavailable Germaine Lopez CHW Unavailable [phone] Lisa Zambrano MD Unavailable [phone] Raul Hoyos MD Unavailable Reason for Referral * Care Coordination (Routine: Next available opening) - Pending Review Specialty Diagnoses / Procedures Referred By Contac t Referred To Contact Diagnoses Gastroesophageal reflux disease with esophagitis without hemorrhage Vlad Rehman MD [facility] [address] [id number] Referral ID Status Reason Start Date Expiration Date V isits Requested Visits Authorized [id number] Pending Review 05/16/2024 05/16/2025 1 1 Question Answer Reason for Referral: Care Transition Transition: Inpatient to outpatient Clinical Staff have discussed the Care Coordination Referral with the patient and/or caregiver: No Comments * Consultation (Routine: Next available opening) - Pending Review Specialty Diagnoses / Procedures Referred By Contac t Referred To Contact Diagnoses Dural arteriovenous fistula History of seizure History of stroke Pain of right upper extremity Stevo Islas MD [address] [place] [address] Referral ID Status Reason Start Date Expiration Date V isits Requested Visits Authorized [id number] Pending Review 05/16/2024 05/16/2025 1 1 Question Answer Reason for Referral: General Neurology Scheduling Instructions: [facility] will call you to coordinate your care as prescribed by your provider. If you don't hear from a sales representative leather goods within 2 business days, please call . Additional Information: Left sided numbness/heaviness Comments Please be aware that coverage of these services is subject to the terms and limitations of your health insurance plan. Call member services at your health plan with any benefit or coverage questions. [facility] will call you to coordinate your care as prescribed by your provider. If you don't hear from a sales representative leather goods within 2 business days, please call . * Consultation (Routine: Next available opening) - Pending Review Specialty Diagnoses / Procedures Referred By Contac t Referred To Contact Cardiovascular Disease Diagnoses Chest pain, unspecified type Danna Cardenas PA-C [address] [place] [address] Referral ID Status Reason Start Date Expiration Date V isits Requested Visits Authorized [id number] Pending Review 05/15/2024 05/15/2025 1 1 Question Answer Follow-up with: MONICA Reason for follow-up: General Cardiology Scheduling Instructions: [facility] will call you to coordinate your care as prescribed by your provider. If you have concerns about scheduling, please call [phone]. Comments [facility] will call you to coordinate your care as prescribed by your provider. If you have concerns about scheduling, please call [phone]. Reason for Visit * Auth/Cert (Routine) Specialty Diagnoses / Procedures Referred By Nila t Referred To Contact Cardiology Diagnoses Chest Pain Chest pain Sh [facility] [address] [place] [address] Referral ID Status Reason Start Date Expiration Date Visits Re quested Visits Authorized [id number] 1 1 Encounter Details Date Type Department Care Team (Late st Contact Info) Description 05/14/2024 9:06 PM CDT - Present Hospital Encounter [facility] Neuroscience Unit [address] [id number] Vlad Rehman MD [facility] [address] [address] Raúl Cates MD [address] [place] [address] [place] [id number] Gastroesophageal reflux disease with esophagitis without hemorrhage (Primary Dx); Chest pain, unspecified type; Dural arteriovenous fistula; History of seizure; History of stroke; Pain of right upper extremity Social History Tobacco Use Types Packs/Day Years [...] How often do you attend jew or episcopal serv ices? Never 02/28/2024 Do [...] Answer Date Recorded PHQ-2 Score 2 05/05/2024 [facility] [...] in an overnight fci, or couch-surfing.) Yes 05/16/2024 Are you worried [...] Mass Index 31.84 05/14/2024 9:09 PM CDT documented in this encounter Progress Notes * Raúl Cates MD - 05/16/2024 4:32 PM CDT [facility] Medicine Progress Note - Hospitalist Service Date of Admission: 05/14/2024 Assessment & Plan Alcon Zamora is a 48 year old female with medical history significant for ischemic stroke, bihemispheric due to procedural complication after cerebral angiogram and right-sided weakness and numbness, poststroke generalized tonic- clonic seizure, intermittent frontal headaches, left sigmoid dural AVfistula, pulsatile tinnitus, fibromyalgia, MONAE, insomnia, history of ASD repair, well- controlled asthma was transferred to [facility] for evaluation of chest pain/pressure (ECG with t wave inversions but negative troponin and Lexiscan). Hospital course complicated by L sided weakness (negative stroke work up) and recurrence of pulsatile tinnitus/pounding YANG in setting of AV fistula. Neurosurgery consulted on 05/16/2024 Type 1 L sigmoid dural AV fistula - Sx: L pulsatile tinnitus and headache - Follows [facility] Neurosurgery (last virtual visit 02/12/[address] Robin Zepeda with no plans for surgical intervention given resolution of L tinnitus) Plan - Given progressively worsening pounding YANG and now new R sided tinnitus on top of current L tinnitus, will consult neurosurgery Chest pain - resolved -Troponin x 2 negative, D-dimer negative. EKG showed T inversion in inferior leads. - lexiscan 05/15/2024: No inducible MY with normal LV function - Cardiology signed off 05/15/2024 with final recs of proceeding with CT coronary angio outpt if with persistent symptoms -Continue TOP CARRIER aspirin and statin Left arm heaviness, tingling, left leg heaviness reported History of Ischemic stroke, bihemispheric due to procedural complication after cerebral angiogram and right-sided weakness and numbness 12/2023 - cerebral angiogram for this in December this year and patient was found to have ischemic stroke bothcerebral hemispheres. - on 05/10/2024, MRI CT CTA head completed due to patient experiencing some left sided leaning during physical therapy session. No acute process noted with imaging. - MRI Brain and MRA Brain/Neck without new infarcts Plan - continue ASA and statin - Neuro signed off with final recs of outpt follow up in 6-8 weeks Stable medical conditions: Resume medications when verified. Post stroke generalized tonic-clonic seizure Fibromyalgia MONAE Insomnia History of ASD repair Well-controlled asthma Observation Goals: List all goals to be met before discharge home: , - Serial troponins and stress test complete., - Seen and cleared by architectural sales consultant if applicable, - Adequate pain control on oral analgesia, - Vital signs normal or at patient baseline, - Safe disposition plan has been identified, - Nurse to notify provider when observation goals have been met and patient is ready for discharge. Diet: Regular Diet Adult DVT Prophylaxis: Pneumatic Compression Devices Pantoja Catheter: Not present Lines: None Cardiac Monitoring: ACTIVE order. Indication: Chest pain/ ACS rule out (24 hours) Code Status: Full Code Clinically Significant Risk Factors Present on Admission # Drug Induced Platelet Defect: home medication list includes an antiplatelet medication # Obesity: Estimated body mass index is 31.84 kg/m?? as calculated from the following: Height as of this encounter: 1.727 m (5' 8). Weight as of this encounter: 95 kg (209 lb 7 oz). # Financial/Environmental Concerns: none # Asthma: noted on problem list Disposition Plan Medically Ready for Discharge: Pending evaluation by neurosurgery DO Buzz Brinkgabino Hospitalist Interval History On evaluation this am, she is sitting on the chair next to bedside with her head angled downwards, hands on her bilateral temples and eyes closed. With progressively YANG (worse with noise and light) and bilateral pulsatile tinnitus that are similar to prior dural AV fistula pain. No current CP, SOB,cough. She and informed of plans to transfer her to neuro floor and have neurosurgery evaluate her. Physical Exam Vital Signs: Temp: 98 ??F (36.7 ??C) Temp src: Oral BP: (!) 159/89 (pt carolina mariscal MD during reading) Pulse: 68 Resp: 16 SpO2: 96 % O2 Device: None (Room air) Weight: 209 lbs 6.99 oz Physical Exam Constitutional: Appearance: Normal appearance. HENT: Head: Normocephalic. Mouth/Throat: Mouth: Mucous membranes are moist. Eyes: Pupils: Pupils are equal, round, and reactive to light. Cardiovascular: Rate and Rhythm: Normal rate and regular rhythm. Pulses: Normal pulses. Pulmonary: Effort: Pulmonary effort is normal. Abdominal: General: Abdomen is flat. Musculoskeletal: General: Normal range of motion. Cervical back: Normal range of motion. Skin: General: Skin is warm and dry. Neurological: General: No focal deficit present. Mental Status: She is alert and oriented to person, place, and time. Psychiatric: Mood and Affect: Mood normal. NIHSS performed with score of 0 Medical Decision Making 63 MINUTES SPENT BY ME on the date of service doing chart review, history, exam, documentation & further activities per the note. Data Imaging results reviewed over the past 24 hrs: No results found for this or any previous visit (from the past 24 hour(s)). * Annalisa Hensley RN - 05/16/2024 3:53 PM CDT Patient transferring to Neuro unit. She has been having increased exacerbation of her sx. YANG with pressure, worse blurry vision, some numbness/tingling in her hands. These have been presentbut feel worse, her YANG was 10/10 and better with tylenol and after the tylenol oxycodone 5 mg. Hospitalist notified and has requested neuro-surg consult. NS have seen patient this afternoon. See their note for plan. RN-RN handover completed, Chon- Stefanie. * Sudhakar Evangelista RN - 05/16/2024 6:34 AM CDT A&O x 4, pleasant. VSS on RA, c/o headache, given Tylenol x 1. Up SBA to bathroom. Neuro intact. Discharge pending in progress. Continue plan of care. * Lyle Anderson RN - 05/15/2024 8:00 PM CDT Observations goals to be met before discharge home: - Serial troponins and stress test complete: Met - Seen and cleared by architectural sales consultant if applicable: Not met - Adequate pain control on oral analgesia: Met - Vital signs normal or at patient baseline: Met - Safe disposition plan has been identified: Partially met - Nurse to notify provider when observation goals have been met and patient is ready for discharge. * Shawna Leos RN - 05/15/2024 5:39 PM CDT List all goals to be met before discharge home: - Serial troponins and stress test complete. Yes - Seen and cleared by architectural sales consultant if applicable No - Adequate pain control on oral analgesia Yes - Vital signs normal or at patient baseline Yes - Safe disposition plan has been identified Yes - Nurse to notify provider when observation goals have been met and patient is ready for discharge. * Danna Cardenas PA-C - 05/15/2024 2:57 PM CDT Brief Cardiology Note Pt: Alcon Zamora 1975 Lexiscan results are negative for ischemia. Updated patient at the bedside Coordinating outpatient cardiology follow up If patient remains symptomatic in the outpatient setting could consider a CT coronary angiogram From a cardiology standpoint patient cleared to discharge Cardiology to sign off Danna Cardenas PA-C 2:57 PM 05/15/2024 Physician [employer] * Shawna Leos RN - 05/15/2024 11:25 AM CDT List all goals to be met before discharge home: - Serial troponins and stress test complete. Yes - Seen and cleared by architectural sales consultant if applicable No - Adequate pain control on oral analgesia Yes - Vital signs normal or at patient baseline Yes - Safe disposition plan has been identified Yes - Nurse to notify provider when observation goals have been met and patient is ready for discharge. * Ashely Mejia RN - 05/15/2024 9:15 AM CDT Lexiscan Stress: Pt tolerated well. VSS. Pt denied chest pain or pressure prior to injection. Afterinjection pt reported chest pain, shortness of breath and a headache. Chest pain became severe at six minutes into recovery, 8/10 pain. 50mg aminophylline given, and symptoms subsided within 1 minute. By 3 minutes, pain 1/10. Shortness of breath recovered by end of test. Headache remained when pt tr ansferred back to her room. 0940 Pt transferred back to Rm 254 per w/c. Pt stable at time of transfer. * Delicia Saini APRN FINANCIAL BUSINESS ANALYST - 05/15/2024 7:10 AM CDT [facility] Medicine Progress Note - Hospitalist Service Date of Admission: 05/14/2024 Assessment & Plan Alcon Zamora is a 48 year old female with medical history significant for ischemic stroke, bihemispheric due to procedural complication after cerebral angiogram and right-sided weakness and numbness, poststroke generalized tonic- clonic seizure, intermittent frontal headaches, left sigmoid dural AVfistula, pulsatile tinnitus, fibromyalgia, MONAE, insomnia, history of ASD repair, well- controlled asthma was transferred to [facility] for evaluation of chest pain/pressure and registered under observation on 05/14/2024. Chest pain -Chest pressure/pain, radiating to left arm and neck starting yesterday morning. -Troponin x 2 negative, D-dimer negative. EKG showed T inversion in inferior leads. - lexiscan completed, results pending -Continue TOP CARRIER aspirin and statin -Telemetry - HgbA1c 5.3 12/2023 - As needed sublingual nitroglycerin, PPI. - cardiology consulted Left arm heaviness, tingling, left leg heaviness reported History of Ischemic stroke, bihemispheric due to procedural complication after cerebral angiogram and right-sided weakness and numbness 12/2023 -Patient with left sigmoid dural AV fistula and pulsatile tinnitus. Had workup, cerebral angiogram for this in December this year and patient was found to have ischemic stroke both cerebral hemispheres. - on 05/10/2024, MRI CT CTA head completed due to patient experiencing some left sided leaning during physical therapy session. No acute process noted with imaging. -Continue TOP CARRIER aspirin and statin. -patient reports feeling of left arm tingling, heaviness as well as left leg heaviness that startedon and off 05/14/2024. She is concerned that her most recent MRI had a new area of stroke that she was not previously aware of. MRA head and neck ordered -stroke neuro consult Stable medical conditions: Resume medications when verified. Post stroke generalized tonic-clonic seizure Intermittent frontal headaches Left sigmoid dural AV fistula Pulsatile tinnitus Fibromyalgia MONAE Insomnia History of ASD repair Well-controlled asthma Observation Goals: List all goals to be met before discharge home: , - Serial troponins and stress test complete., - Seen and cleared by architectural sales consultant if applicable, - Adequate pain control on oral analgesia, - Vital signs normal or at patient baseline, - Safe disposition plan has been identified, - Nurse to notify provider when observation goals have been met and patient is ready for discharge. Diet: NPO for Medical/Clinical Reasons Except for: Meds DVT Prophylaxis: Pneumatic Compression Devices Pantoja Catheter: Not present Lines: None Cardiac Monitoring: ACTIVE order. Indication: Chest pain/ ACS rule out (24 hours) Code Status: Full Code Clinically Significant Risk Factors Present on Admission # Drug Induced Platelet Defect: home medication list includes an antiplatelet medication # Obesity: Estimated body mass index is 31.99 kg/m?? as calculated from the following: Height as of 05/12/24: 1.727 m (5' 8). Weight as of this encounter: 95.4 kg (210 lb 6.4 oz). # Financial/Environmental Concerns: # Asthma: noted on problem list Disposition Plan Medically Ready for Discharge: Anticipated Tomorrow Caroline result pending MRA pending Stroke neuro following The patient's care was discussed with the Attending Physician, Dr. Delarosa . Delicia Saini DNP APRN [facility] Hospitalist Service [facility] Securely message with [employer] (more info) Text page via [facility] Paging/Directory Interval History This morning, patient is seen after returning from her Lexiscan. Patient is alert, oriented, does not appear in distress. She denies headache or dizziness at this time. She is concerned of some on and off left arm tingling and heaviness that has been occurring since yesterday. She states that she is also having a feeling of heaviness in her left leg. She reports some nausea overnight does not have any at this time. She denies any chest pain or shortness of breath currently. She is concerned of any potential new stroke that may have occurred and wonders if she may be having some symptoms from this. We discussed this and patient will be seen by stroke neurology team. We discussed MRA imaging as well. Physical Exam Vital Signs: Temp: 97.9 ??F (36.6 ??C) Temp src: Oral BP: 114/62 Pulse: 57 Resp: 18 SpO2: 94 % O2 Device: None (Room air) Weight: 210 lbs 6.4 oz Physical Exam Constitutional: Appearance: Normal appearance. HENT: Head: Normocephalic. Mouth/Throat: Mouth: Mucous membranes are moist. Eyes: Pupils: Pupils are equal, round, and reactive to light. Cardiovascular: Rate and Rhythm: Normal rate and regular rhythm. Pulses: Normal pulses. Pulmonary: Effort: Pulmonary effort is normal. Abdominal: General: Abdomen is flat. Musculoskeletal: General: Normal range of motion. Cervical back: Normal range of motion. Skin: General: Skin is warm and dry. Neurological: General: No focal deficit present. Mental Status: She is alert and oriented to person, place, and time. Psychiatric: Mood and Affect: Mood normal. NIHSS performed with score of 0 Medical Decision Making 63 MINUTES SPENT BY ME on the date of service doing chart review, history, exam, documentation & further activities per the note. Data I have personally reviewed the following data over the past 24 hrs: 5.4 \ 13.6 / 172 141 106 15.4 / 89 4.5 27 0.90 \ Imaging results reviewed over the past 24 hrs: Recent Results (from the past 24 hour(s)) NM Lexiscan stress test (nuc card) Result Value Target HR 173 Baseline Systolic BP 141 Baseline Diastolic BP 73 Last Stress Systolic BP 144 Last Stress Diastolic BP 82 Baseline HR 65 Max HR 108 Max Predicted HR 62 Rate Pressure Product 15,552.0 Associated attestation - Mary Anne Delarosa MD - 05/15/2024 1:53 PM CDT Physician Attestation I have reviewed and discussed with the advanced practice provider their history, physical and plan for Alcon Zamora. I did not participate in a shared visit; this is an advanced practice provider only visit. Mary Anne Delarosa MD Date of Service (when I saw the patient): I did not personally see this patient today. * Lyle Anderson RN - 05/15/2024 4:00 AM CDT Observations goals to be met before discharge home: - Serial troponins and stress test complete: Met - Seen and cleared by architectural sales consultant if applicable: Not met - Adequate pain control on oral analgesia: Partially Met - Vital signs normal or at patient baseline: Met - Safe disposition plan has been identified: Not met - Nurse to notify provider when observation goals have been met and patient is ready for discharge. * Lyle Anderson RN - 05/15/2024 12:00 AM CDT Observations goals to be met before discharge home: - Serial troponins and stress test complete: Met - Seen and cleared by architectural sales consultant if applicable: Not met - Adequate pain control on oral analgesia: Partially Met - Vital signs normal or at patient baseline: Met - Safe disposition plan has been identified: Not met - Nurse to notify provider when observation goals have been met and patient is ready for discharge. * Lyle Anderson RN - 05/14/2024 9:30 PM CDT Observations goals to be met before discharge home: - Serial troponins and stress test complete: Met - Seen and cleared by architectural sales consultant if applicable: Not met - Adequate pain control on oral analgesia: Partially Met - Vital signs normal or at patient baseline: Met - Safe disposition plan has been identified: Not met - Nurse to notify provider when observation goals have been met and patient is ready for discharge. * Chinedu Mejia MD - 05/14/2024 5:08 PM CDT Transfer Type: [facility] Transfer Triage Note Date of call: 05/14/24 Time of call: 5:08 PM Current Patient Location: [place] Current Level of Care: ED Vitals:Normal per report Diagnosis: Chest pain Reason for requested transfer: Further diagnostic work up, management, and consultation for specialized care Isolation Needs: None Care everywhere has been updated and reviewed: No Necessary images have been sent through PACS: No If patient is transferring for specialty care or specific procedure, the specialist required has participated in the transfer call and agreed with need for transfer and anticipated timeline: ED provider discussed with Dr. Jalloh, cardiology Transfer accepted: Yes Stability of Patient: Patient is vitally stable, with no critical labs, and will likely remain stable throughout the transfer process Level of Care Needed: Med Surg Telemetry Needed: Cardiac Telemetry Expected Time of Arrival for Transfer: 0-8 hours Arrival Location: [facility] Recommendations for Management and Stabilization: Not needed Additional Comments: Chest pain, EKG with new Tw[place] inversions, negative troponin x 2, ED discussedwith cardiology Dr. Jalloh recommended admission, likely inpatient stress test Chinedu Mejia MD documented in this encounter H&P Notes * Christen Peng MD - 05/14/2024 9:22 PM CDT [facility] History and Physical - Hospitalist Service Date of Admission: 05/14/2024 Assessment & Plan Alcon Zamora is a 48 year old female with medical history significant for ischemic stroke, bihemispheric due to procedural complication after cerebral angiogram and right-sided weakness and numbness, poststroke generalized tonic- clonic seizure, intermittent frontal headaches, left sigmoid dural AVfistula, pulsatile tinnitus, fibromyalgia, MONAE, insomnia, history of ASD repair, well- controlled asthma was transferred to [facility] for evaluation of chest pain/pressure and registered under observation on 05/14/2024. Chest pain Chest pressure/pain, radiating to left arm and neck starting yesterday morning. Troponin x 2 negative, D-dimer negative. EKG showed T inversion in inferior leads. [place] nausea and abdominal pain afterIV morphine and received Toradol. -[place] under observation -Troponin x 2 negative, will order stress test. -Continue TOP CARRIER aspirin and statin -Telemetry, check HbA1c and FLP. -As needed sublingual nitroglycerin, PPI. -Patient had CTA to rule out dissection but I was not able to find the report, have requested result. Ischemic stroke, bihemispheric due to procedural complication after cerebral angiogram and right-sided weakness and numbness Patient with left sigmoid dural AV fistula and pulsatile tinnitus. Had workup, cerebral angiogram for this in December this year and patient was found to have ischemic stroke both cerebral hemispheres. Patient was in rehab. Recommended 325 mg aspirin but did not tolerate due to GI upset and reduced to81 Mg daily. -Continue TOP CARRIER aspirin and statin -Had repeat MRI earlier this week for severe headache and dizziness, reports no acute process. She was evaluated by neurology as well and felt to be migraine. No new medication started. Patient does report ongoing numbness in her extremities. Recommend follow-up with neurology as outpatient. -Since this was felt to be procedure well, looks like no echo or hypercoagulable workup was completed. Patient follows up with neurology, defer any further workup to neurology as outpatient. Stable medical conditions: Resume medications when verified. Post stroke generalized tonic-clonic seizure Intermittent frontal headaches Left sigmoid dural AV fistula Pulsatile tinnitus Fibromyalgia MONAE Insomnia History of ASD repair Well-controlled asthma Diet: Regular, n.p.o. after midnight DVT Prophylaxis: Pneumatic Compression Devices [place] Catheter: Not present Lines: None Cardiac Monitoring: None Code Status: Full code by default Clinically Significant Risk Factors Present on Admission # Obesity: Estimated body mass index is 32.81 kg/m?? as calculated from the following: Height as of 05/12/24: 1.727 m (5' 8). Weight as of 05/12/24: 97.9 kg (215 lb 12.8 oz). # Financial/Environmental Concerns: # Asthma: noted on problem list Disposition Plan Medically Ready for Discharge: Anticipated Tomorrow Christen Peng MD Hospitalist Service [facility] Securely message with [employer] (more info) Text page via [facility] Paging/Directory Chief Complaint Chest pain/pressure History is obtained from the patient, chart review History of Present Illness Alcon Zamora is a 48 year old female with medical history significant for ischemic stroke, bihemispheric due to procedural complication after cerebral angiogram and right-sided weakness and numbness, poststroke generalized tonic- clonic seizure, intermittent frontal headaches, left sigmoid dural AVfistula, pulsatile tinnitus, fibromyalgia, MONAE, insomnia, history of ASD repair, well- controlled asthma was transferred to [facility] for evaluation of chest pain/pressure Patient reports she woke up around 7 AM today with chest pressure, central/to the left, radiating to left arm and neck. Patient tried to lay down but it would not go away. Along with pressure, there was associated waxing and waning pain which was 7/10. Patient reports 2 episodes of sharp chest painyesterday as well that lasted only few seconds and subsided on its own. Denies shortness of breath. Denies fever, cough, nausea or vomiting, urinary symptoms, diarrhea, abdominal pain. She dropped to the emergency department in [place]. Noted she was mildly hypertensive. Afebrile,heart rate in 70s and pulse ox 90s on room air. Lab workup completed includes CBC, CMP, D-dimer, proBNP, CRP which were negative. Troponin x 2 as well negative. Reviewed twelve-lead EKG which shows Tinversion on inferior leads. Patient had CTA to rule out dissection but I was not able to find the report and have requested it. Patient received morphine IV which caused abdominal pain and nausea and subsequently got Zofran and Toradol. While in ER, patient also felt tingling in her face and extremities dizzy and her vision was blurry. Patient was on aspirin 325 mg daily after his stroke but dueto stomach upset this was reduced to 81 mg daily. Patient took 3 of the baby aspirin today. Past Medical History Past Medical History: Diagnosis [...] Past Surgical History: Procedure Laterality Date C HEAD PORTER BAGGAGE PROCEDURE DATE: vag del. C HEAD PORTER BAGGAGE PROCEDURE DATE: 2000 tubal ligation C HEAD PORTER BAGGAGE PROCEDURE DATE: 1994 D&C CARDIAC SURGERY 06/2006 heart defect repair ESOPHAGOSCOPY, GASTROSCOPY, DUODENOSCOPY (EGD), COMBINED N/A 02/08/2021 Procedure: ESOPHAGOGASTRODUODENOSCOPY (EGD); Surgeon: Tuan Miller MD; Location: GI GI SURGERY 09/2020 gallbladder removed HC KNEE SCOPE,MED/LAT MENISECTOMY 08/04/13 LT HEART CATH, CLOSURE ATRIAL SEPTAL DEFECT 06/20/06 amplatzer septal occluder- serial #[id number] HEAD PORTER BAGGAGE (ABSTRACTED) pneumonia several times SURGICAL PATHOLOGY EXAM 02/2012 excision of lipoma on chest wall ZZC VAGINAL HYSTERECTOMY 01/30/06 Prior to Admission Medications Prior to Admission Medications Prescriptions Last Dose Informant Patient Reported? Taking? BREO ELLIPTA 200-25 MCG/INH Inhaler No No Sig: INHALE 1 PUFF INTO THE LUNGS DAILY LORazepam (ATIVAN) 1 MG tablet No No Sig: Take 1/2-1 tablet daily as needed for onset of dizziness. Lidocaine (LIDOCARE) 4 % Patch No No Sig: Place 1 patch onto the skin every 24 hours To prevent lidocaine toxicity, patient should be patch free for 12 hrs daily. OXcarbazepine (TRILEPTAL) 150 MG tablet No No Sig: Take 1 tablet (150 mg) by mouth at bedtime acetaminophen (TYLENOL) 500 MG tablet No No Sig: Take 1-2 tablets (500-1,000 mg) by mouth 3 times daily as needed for mild pain or headaches albuterol (PROAIR HFA/PROVENTIL HFA/VENTOLIN HFA) 108 (90 Base) MCG/ACT inhaler No No Sig: Inhale 2 puffs into the lungs every 4 hours as needed for shortness of breath / dyspnea or wheezing aspirin (ASA) 325 MG EC tablet No No Sig: Take 1 tablet (325 mg) by mouth daily Patient taking differently: Take 162 mg by mouth daily cetirizine (ZYRTEC) 10 MG tablet Yes No Sig: Take 10 mg by mouth daily levETIRAcetam (KEPPRA) 750 MG tablet No No Sig: TAKE 1 TABLET BY MOUTH TWICE A DAY Patient taking differently: Take 325 mg by mouth 2 times daily magnesium oxide 200 MG TABS Yes No Sig: Ok to take magnesium supplement of your preference meclizine (ANTIVERT) 25 MG tablet No No Sig: Take 1 tablet (25 mg) by mouth 3 times daily as needed for dizziness Patient not taking: Reported on 05/05/2024 methyl salicylate-menthol (ICY HOT) ointment No No Sig: Apply topically every 6 hours as needed (pain) psyllium (METAMUCIL) 28.3 % packet Yes No Sig: Take 1 packet by mouth daily rosuvastatin (CRESTOR) 20 MG tablet No No Sig: TAKE 1 TABLET (20 MG) BY MOUTH AT BEDTIME Patient not taking: Reported on 05/01/2024 senna-docusate (SENOKOT-S/PERICOLACE) 8.6-50 MG tablet No No Sig: Take 2 tablets by mouth 2 times daily as needed for constipation Patient not taking: Reported on 02/06/2024 traZODone (DESYREL) 50 MG tablet No No Sig: Take 2 tablets (100 mg) by mouth At Bedtime vitamin B complex with vitamin C (VITAMIN B COMPLEX) tablet Yes No Sig: Take 1 tablet by mouth daily Facility-Administered Medications Last Administration Doses Remaining sodium chloride (PF) 0.9% PF flush 3 mL 02/28/2024 10:39 AM Review of Systems The 10 point Review of Systems is negative other than noted in the HPI or here. Social History I have reviewed this patient's [...] family hx of Allergies Allergies Allergen Reactions Codeine GI Disturbance Other Reaction(s): epigastric pain Mold Dizziness and GI Disturbance Bupropion GI Disturbance and Other (See Comments) Diarrhea and stomach ache Erythromycin GI Disturbance Physical Exam Vital Signs: Temp: 98.6 ??F (37 ??C) Temp src: Oral Weight: 0 lbs 0 oz General: AAOx3, appears comfortable. HEENT: PERRLA EOMI. Mucosa moist. Lungs: Bilateral equal air entry. Clear to auscultation, normal work of breathing. CVS: S1S2 regular, no tachycardia or murmur. Abdomen: Soft, NT, ND. BS heard. MSK: No edema or deformities. Neuro: AAOX3. CN 2-12 normal. Strength symmetrical. Skin: No rash. Medical Decision Making 78 MINUTES SPENT BY ME on the date of service doing chart review, history, exam, documentation & further activities per the note. Data Imaging results reviewed over the past 24 hrs: No results found for this or any previous visit (from the past 24 hour(s)). documented in this encounter Consult Notes * Jovita Castro RN - 05/16/2024 3:15 PM CDTAssociated Order(s): CARE MANAGEMENT / SOCIAL WORK IP CONSULT Care Management Initial Consult General Information Assessment completed with: Patient, Type of CM/SW Visit: Initial Assessment Primary Care Provider verified and updated as needed: Yes Readmission within the last 30 days: no previous admission in last 30 days Reason for Consult: discharge planning Advance Care Planning: Advance Care Planning Reviewed: no concerns identified Communication Assessment Patient's communication style: spoken language (Niuean or Bilingual) Hearing Difficulty or Deaf: no Wear Glasses or Blind: yes Cognitive Cognitive/Neuro/Behavioral: WDL Level of Consciousness: alert Arousal Level: opens eyes spontaneously Orientation: oriented x 4 Mood/Behavior: calm Best Language: 0 - No aphasia Speech: clear, logical Living Environment: People in home: spouse Current living Arrangements: house Able to return to prior arrangements: Family/Social Support: Care provided by: self Provides care for: no one Marital Status: Support system: , Children, Parent(s) Loyd Description of Support System: Supportive, Involved Current Resources: Patient receiving home care services: No Community Resources: Other (see comment) (Outpatient OT, PT and ST) Equipment currently used at home: grab bar, tub/shower Supplies currently used at home: Employment/Financial: Employment Status: other (see comments), employed part-time (Pt just applied for short term disability through her employer on Saturday) Financial Concerns: none Referral to Financial Worker: No Does the patient's insurance plan have a 3 day qualifying hospital stay waiver? No Lifestyle & Psychosocial Needs: Social Determinants of Health Food Insecurity: Low Risk (05/15/2024) Food Insecurity Within the past 12 months, did you worry that your food would run out before you got money to buy more?: No Within the past 12 months, did the food you bought just not last and you didn???t have money to getmore?: No Depression: Not at risk (05/05/2024) PHQ-2 PHQ-2 Score: 2 Recent Concern: Depression - At risk (02/12/2024) PHQ-2 PHQ-2 Score: 4 Housing Stability: Low Risk (05/15/2024) Housing Stability Do you have housing? : Yes Are you worried about losing your housing?: No Tobacco Use: Low Risk (05/05/2024) Patient History Smoking Tobacco Use: Never Smokeless Tobacco Use: Never Passive Exposure: Never Financial Resource Strain: Low Risk (05/15/2024) Financial Resource Strain Within the past 12 months, have you or your family members you live with been unable to get utilities (heat, electricity) when it was really needed?: No Alcohol Use: Not At Risk (02/28/2024) AUDIT-C Frequency of Alcohol Consumption: Never Average Number of Drinks: Patient does not drink Frequency of Binge Drinking: Never Transportation Needs: Low Risk (05/15/2024) Transportation Needs Within the past 12 months, has lack of transportation kept you from medical appointments, getting your medicines, non-medical meetings or appointments, work, or from getting things that you need?: No Recent Concern: Transportation Needs - High Risk (02/28/2024) Transportation Needs Within the past 12 months, has lack of transportation kept you from medical appointments, getting your medicines, non-medical meetings or appointments, work, or from getting things that you need?: Yes Physical Activity: Insufficiently Active (02/28/2024) Exercise Vital Sign Days of Exercise per Week: 1 day Minutes of Exercise per Session: 10 min Interpersonal Safety: Low Risk (02/06/2024) Interpersonal Safety Do you feel physically and emotionally safe where you currently live?: Yes Within the past 12 months, have you been hit, slapped, kicked or otherwise physically hurt by someone?: No Within the past 12 months, have you been humiliated or emotionally abused in other ways by your partner or ex-partner?: No Stress: Stress Concern Present (02/28/2024) [employer] [place] [employer] - Occupational Stress Questionnaire Feeling of Stress : To some extent Social Connections: Socially Isolated (02/28/2024) Social Connection and Isolation Panel [NHANES] Frequency of Communication with Friends and Family: Once a week Frequency of Social Gatherings with Friends and Family: Never Attends Pentecostal Services: Never Active Member of Clubs or Organizations: No Attends Club or Organization Meetings: Never Marital Status: Health Literacy: Not on file Functional Status: Prior to admission patient needed assistance: Dependent ADLs:: Independent Dependent IADLs:: Transportation Mental Health Status: Mental Health Status: No Current Concerns Chemical Dependency Status: Chemical Dependency Status: No Current Concerns Values/Beliefs: Spiritual, Cultural Beliefs, Pentecostal Practices, Values that affect care: no Discussed ???Partnership in Safe Discharge Planning??? document with patient/family: Yes: patient Additional Information: Consult for elevated risk score. Met with patient ad introduced self and role. Pt lives at home with her spouse, Loyd. Pt shared she was at acute rehab in January after a stroke and is now in outpatient therapy getting OT, PT and ST. Pt shared she recently starting working approximately 16 hours per week. 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 This past Saturday, pt applied for short term disability through her employer due to increased symptoms (visual difficulty, headache)making it difficult to work. Pt shared that she is going to have a neurosurgery consult and may require surgery. Discussed CM will follow for any discharge needs that may arise pending plan. Pt request for CM to assist with scheduling appointments at discharge, as she was overwhelmed with scheduling appointments following her acute rehab stay. Next Steps: Follow for medical plan and possible need for therapy consults to assist with dischargerecommendations. Jovita Castro RN, BS Director Of Recruitment And Admissions [email or web address] * Aspen Zurita MD - 05/15/2024 12:56 PM CDTAssociated Order(s): CARDIOLOGY IP CONSULT Cardiology Consultation Alcon Zamora Date of : 1975 Age: [age] year old Date of Admission: 05/14/2024 Reason for consult: Chest discomfort Assessment and Plan: 48-year-old female with a past medical history significant for ASD closure in 2005 and a cerebral angiogram in December 2023 complicated by postprocedure CVAs who was admitted to [facility] on 05/14/2024 with chest discomfort. Cardiac troponins have been negative. A Lexiscan stress perfusion study was performed today and is pending. IMPRESSION: Chest discomfort with negative troponins and nonspecific T wave changes noted on admission EKG. History of ASD closure in 2005. History of postprocedure CVAs as described above. PLAN -Await results of Lexiscan stress perfusion study. A CTA of the chest in March 2024 demonstrated no significant coronary artery calcification. -An echocardiogram in 01/2024 was essentially normal with mild mitral regurgitation. -We did discuss the fact that if her symptoms persist CT coronary angiography may be appropriate. Chief Complaint: No chief complaint on file. History of Present Illness: This patient is a 48 year old female who has a history of ASD repair in 2005. She also underwent a cerebral angiogram in December 2023 for a left sigmoid dural AV fistula and pulsatile tinnitus. Unfortunately this was complicated by post procedure CVAs. She states that she had actually done quite well in the summer of this year as far as physical activity is concerned. After March, however, she has been bothered by recurrent severe headaches and actually underwent a recent MRI which demonstrated no acute findings. Yesterday she was admitted to [facility] with chest discomfort that involved her left chest and radiated to her neck and arm. She presented for further evaluation. Cardiac troponins were negative, but nonspecific T wave changes were noted. A Lexiscan stress was ordered for today. Physical Exam: Vitals were reviewed Blood pressure (!) 143/81, pulse 63, temperature 98 ??F (36.7 ??C), temperature source Oral, resp. rate 16, weight 95.4 kg (210 lb 6.4 oz), last menstrual period 01/07/2006, SpO2 98%. Temperatures: Current - Temp: 98 ??F (36.7 ??C); Max - Temp Av.2 ??F (36.8 ??C) Min: 97.9 ??F (36.6 ??C) Max: 98.6 ??F (37 ??C) Respiration range: Resp Av Min: 16 Max: 20 Pulse range: Pulse Av.3 Min: 57 Max: 76 Blood pressure range: Systolic (24hrs), Av , Min:114 , Max:143 ; Diastolic (24hrs), Av, Min:62, Max:81 Pulse oximetry range: SpO2 Av.5 % Min: 93 % Max: 100 % Intake/Output Summary (Last 24 hours) at 05/15/2024 1256 Last data filed at 05/15/2024 0542 Gross per 24 hour Intake 240 ml Output -- Net 240 ml Constitutional: awake, alert, cooperative, no apparent distress, and appears stated age Eyes: Lids and lashes normal, pupils equal, round and reactive to light, extra ocular muscles intact, sclera clear, conjunctiva normal Neck: supple, symmetrical, trachea midline, no JVD Back: symmetric Lungs: No increased work of breathing, good air exchange, clear to auscultation bilaterally, no crackles or wheezing Cardiovascular: Normal apical impulse, regular rate and rhythm, normal S1 and S2, no S3 or S4, and no murmur noted. Abdomen: non-tender Musculoskeletal: motor strength is 5 out of 5 all extremities bilaterally Neurologic: Grossly nonfocal Skin: no bruising or bleeding Additional findings: No edema Past Medical History: I have reviewed this patient's past medical history Past Medical History: Diagnosis Date Acute posthemorrhagic [...] (H) 01/17/2024 Uncomplicated asthma Past Surgical History: I have reviewed this patient's past surgical history Past Surgical History: Procedure Laterality Date C HEAD PORTER BAGGAGE PROCEDURE DATE: vag del. C HEAD PORTER BAGGAGE PROCEDURE DATE: 2000 tubal ligation C HEAD PORTER BAGGAGE PROCEDURE DATE: 1994 D&C CARDIAC SURGERY 06/2006 heart defect repair ESOPHAGOSCOPY, GASTROSCOPY, DUODENOSCOPY (EGD), COMBINED N/A 02/08/2021 Procedure: ESOPHAGOGASTRODUODENOSCOPY (EGD); Surgeon: Tuan Miller MD; Location: GI GI SURGERY 09/2020 gallbladder removed HC KNEE SCOPE,MED/LAT MENISECTOMY 08/04/13 LT HEART CATH, CLOSURE ATRIAL SEPTAL DEFECT 06/20/06 amplatzer septal occluder- serial #[id number] RW HEAD PORTER BAGGAGE (ABSTRACTED) pneumonia several times SURGICAL PATHOLOGY EXAM 02/2012 excision of lipoma on chest wall ZZC VAGINAL HYSTERECTOMY 01/30/06 Social History: I have reviewed this patient's social history Social History Tobacco Use Smoking status: Never Passive exposure: Never Smokeless tobacco: Never Substance Use Topics Alcohol use: Not Currently Comment: minimal Family History: I have reviewed this patient's family history Family History Problem Relation Age of Onset [...] of Blood Disease No family hx of Allergies: Allergies Allergen Reactions Codeine GI Disturbance Other Reaction(s): epigastric pain Mold Dizziness and GI Disturbance Morphine GI Disturbance Bupropion GI Disturbance and Other (See Comments) Diarrhea and stomach ache Erythromycin GI Disturbance Medications: I have reviewed this patient's current medications Facility-Administered Medications Prior to Admission Medication Dose Route Frequency Provider Last Rate Last Admin [DISCONTINUED] sodium chloride (PF) 0.9% PF flush 3 mL 3 mL Intravenous q1 min prn 3 mL at 039 Medications Prior to Admission Medication Sig Dispense Refill Last Dose acetaminophen (TYLENOL) 500 MG tablet Take 1-2 [...] taking differently: Take 162 mg by mouth daily.) 30 tablet 0 05/14/2024 BREO ELLIPTA 200-25 MCG/INH Inhaler INHALE 1 PUFF INTO THE LUNGS DAILY 3 each 1 05/14/2024 cetirizine (ZYRTEC) 10 MG tablet Take 10 mg by mouth at bedtime. 05/13/2024 levETIRAcetam (KEPPRA) 750 MG tablet TAKE 1 TABLET BY MOUTH TWICE A DAY (Patient taking differently: Take 375 mg by mouth 2 times daily. Takes 1/2 of 750 mg tab bid) 56 tablet 0 05/14/2024 at am Lidocaine (LIDOCARE) 4 % Patch Place 1 patch onto the skin every 24 hours To prevent lidocaine toxicity, patient should be patch free for 12 hrs daily. (Patient taking differently: Place 1 patch ontothe skin daily as needed. To prevent lidocaine toxicity, patient should be patch free for 12 hrs daily.) prn LORazepam (ATIVAN) 1 MG tablet Take 1/2-1 tablet daily as needed for onset of dizziness. 10 tablet 0 prn MAGNESIUM PO Take 1 tablet by mouth at bedtime. 05/13/2024 meclizine (ANTIVERT) 25 MG tablet Take 1 tablet (25 mg) by mouth 3 times daily as needed for dizziness 20 tablet 0 prn methyl salicylate-menthol (ICY HOT) ointment Apply topically every 6 hours as needed (pain) psyllium (METAMUCIL) 28.3 % packet Take 1 packet by mouth daily 05/14/2024 rosuvastatin (CRESTOR) 20 MG tablet TAKE 1 TABLET (20 MG) BY MOUTH AT BEDTIME 90 tablet 0 05/13/2024 senna-docusate (SENOKOT-S/PERICOLACE) 8.6-50 MG tablet Take 2 tablets by mouth 2 times daily as needed for constipation traZODone (DESYREL) 50 MG tablet Take 2 tablets (100 mg) by mouth At Bedtime 180 tablet 3 05/13/2024 OXcarbazepine (TRILEPTAL) 150 MG tablet Take 1 tablet (150 mg) by mouth at bedtime 30 tablet 5 05/13/2021 at 75 mg, but does not want to take it anymore Current Facility-Administered Medications Medication Dose Route Frequency Provider Last Rate Last Admin acetaminophen (TYLENOL) tablet 650 mg 650 mg Oral Q4H PRN Christen Peng MD 650 mg at 05/15/24 0208 Or acetaminophen (TYLENOL) Suppository 650 mg 650 mg Rectal Q4H PRN Christen Peng MD albuterol (PROVENTIL HFA/VENTOLIN HFA) inhaler 2 puff Inhalation Q5 Min PRN Vlad Rehman MD albuterol (PROVENTIL HFA/VENTOLIN HFA) inhaler 2 puff Inhalation Q4H PRN Christen Peng MD alum & mag hydroxide-simethicone (MAALOX) suspension 30 mL 30 mL Oral Q4H PRN Christen Peng MD aspirin EC tablet 162 mg 162 mg Oral Daily Christen Peng MD 162 mg at 05/15/24 1013 caffeine (NO-DOZE) tablet 200 mg 200 mg Oral Once PRN Vlad Rehman MD caffeine citrate (CAFCIT) injection 60 mg 60 mg Intravenous Once PRN Vlad Rehman MD cetirizine (zyrTEC) tablet 10 mg 10 mg Oral At Bedtime Christen Peng MD 10 mg at 05/15/24 0032 diazepam (VALIUM) tablet 5 mg 5 mg Oral Q30 Min PRN Vlad Rehman MD fluticasone-vilanterol (BREO ELLIPTA) 200-25 MCG/ACT inhaler 1 puff 1 puff Inhalation Daily Christen Peng MD 1 puff at 05/15/24 1016 HOLD: Caffeine containing medications 12 hours prior to the procedure Does not apply HOLD Christen Peng MD HOLD: dipyridamole (PERSANTINE) or aspirin/dipyridamole (AGGRENOX) 48 hours prior to the procedure Does not apply HOLD Christen Peng MD HOLD: theophylline or aminophylline 12 hours prior to the procedure Does not apply HOLD Christen Peng MD HYDROmorphone (DILAUDID) injection 0.2 mg 0.2 mg Intravenous Q2H PRN Christen Peng MD HYDROmorphone (DILAUDID) injection 0.4 mg 0.4 mg Intravenous Q2H PRN Christen Peng MD IF patient diabetic - HOLD: ALL ORAL HYPOGLYCEMICS and include: glipizide, glyburide, glimepiride, gliclazide, metformin, any metformin containing medication, on day of the procedure Does not apply HOLD Christen Peng MD levETIRAcetam (KEPPRA) half-tab 375 mg 375 mg Oral BID Christen Peng MD 375 mg at 05/15/24 1013 LORazepam (ATIVAN) tablet 0.5 mg 0.5 mg Oral Q10 Min PRN Vlad Rehman MD LORazepam (ATIVAN) tablet 0.5 mg 0.5 mg Oral Daily PRN Christen Peng MD magnesium oxide (MAG-OX) half-tab 200 mg 200 mg Oral At Bedtime Christen Peng MD 200 mg at 05/15/24 0033 meclizine (ANTIVERT) tablet 25 mg 25 mg Oral TID PRN Christen Peng MD naloxone (NARCAN) injection 0.2 mg 0.2 mg Intravenous Q2 Min PRN Vlad Rehman MD Or naloxone (NARCAN) injection 0.4 mg 0.4 mg Intravenous Q2 Min PRN Vlad Rehman MD Or naloxone (NARCAN) injection 0.2 mg 0.2 mg Intramuscular Q2 Min PRN Vlad Rehamn MD Or naloxone (NARCAN) injection 0.4 mg 0.4 mg Intramuscular Q2 Min PRN Vlad Rehman MD nitroGLYcerin (NITROSTAT) sublingual tablet 0.4 mg 0.4 mg Sublingual Q5 Min PRN Christen Peng MD oxyCODONE (ROXICODONE) tablet 5 mg 5 mg Oral Q4H PRN Christen Peng MD oxyCODONE IR (ROXICODONE) half-tab 2.5 mg 2.5 mg Oral Q4H PRN Christen Peng MD pantoprazole (PROTONIX) EC tablet 40 mg 40 mg Oral QAM AC Christen Peng MD 40 mg at 05/15/24 1013 psyllium (METAMUCIL/KONSYL) Packet 1 packet 1 packet Oral Daily Christen Peng MD 1 packet at 05/15/24 1012 rosuvastatin (CRESTOR) tablet 20 mg 20 mg Oral At Bedtime Christen Peng MD 20 mg at 05/15/24 0033 sodium chloride (PF) 0.9% PF flush 1-10 mL 1-10 mL Intravenous Q10 Min PRN Christen Peng MD 5 mL at 05/15/24 0932 sodium chloride 0.9 % infusion Intravenous Continuous Christen Peng MD 100 mL/hr at 05/14/24 2250 New Bag at 05/14/24 2250 sodium chloride 0.9% BOLUS 250 mL 250 mL Intravenous Once PRN Vlad Rehman MD traZODone (DESYREL) tablet 100 mg 100 mg Oral At Bedtime Christen Peng MD 100 mg at 05/15/24 0032 Review of Systems: The 10 point Review of Systems is negative other than noted in the HPI Data: All laboratory data reviewed Results for orders placed or performed during the hospital encounter of 05/14/24 (from the past 24 hour(s)) CBC with Platelets & Differential Narrative The following orders were created for panel order CBC with Platelets & Differential. Procedure Abnormality Status --------- ------ CBC with platelets and d...[[id number]] Final result Please view results for these tests on the individual orders. Lipid panel reflex to direct LDL Result Value Ref Range Cholesterol 155 <200 mg/dL Triglycerides 102 <150 mg/dL Direct Measure HDL 53 >=50 mg/dL LDL Cholesterol Calculated 82 <=100 mg/dL Non HDL Cholesterol 102 <130 mg/dL Patient Fasting > 8hrs? Yes Narrative Cholesterol Desirable: <200 mg/dL Triglycerides Normal: Less than 150 mg/dL Borderline High: 150-199 mg/dL High: 200-499 mg/dL Very High: Greater than or equal to 500 mg/dL Direct Measure HDL Female: Greater than or equal to 50 mg/dL Male: Greater than or equal to 40 mg/dL LDL Cholesterol Desirable: <100mg/dL Above Desirable: 100-129 mg/dL Borderline High: 130-159 mg/dL High: 160-189 mg/dL Very High: >= 190 mg/dL Non HDL Cholesterol Desirable: 130 mg/dL Above Desirable: 130-159 mg/dL Borderline High: 160-189 mg/dL High: 190-219 mg/dL Very High: Greater than or equal to 220 mg/dL Basic metabolic panel Result Value Ref Range Sodium 141 135 - 145 mmol/L Potassium 4.5 3.4 - 5.3 mmol/L Chloride 106 98 - 107 mmol/L Carbon Dioxide (CO2) 27 22 - 29 mmol/L Anion Gap 8 7 - 15 mmol/L Urea Nitrogen 15.4 6.0 - 20.0 mg/dL Creatinine 0.90 0.51 - 0.95 mg/dL GFR Estimate 79 >60 mL/min/1.73m2 Calcium 9.1 8.8 - 10.4 mg/dL Glucose 89 70 - 99 mg/dL CBC with platelets and differential Result Value Ref Range WBC Count 5.4 4.0 - 11.0 10e3/uL RBC Count 4.37 3.80 - 5.20 10e6/uL Hemoglobin 13.6 11.7 - 15.7 g/dL Hematocrit 40.8 35.0 - 47.0 % MCV 93 78 - 100 fL MCH 31.1 26.5 - 33.0 pg MCHC 33.3 31.5 - 36.5 g/dL RDW 11.7 10.0 - 15.0 % Platelet Count 172 150 - 450 10e3/uL % Neutrophils 49 % % Lymphocytes 35 % % Monocytes 6 % % Eosinophils 8 % % Basophils 1 % % Immature Granulocytes 0 % NRBCs per 100 WBC 0 <1 /100 Absolute Neutrophils 2.7 1.6 - 8.3 10e3/uL Absolute Lymphocytes 1.9 0.8 - 5.3 10e3/uL Absolute Monocytes 0.3 0.0 - 1.3 10e3/uL Absolute Eosinophils 0.4 0.0 - 0.7 10e3/uL Absolute Basophils 0.0 0.0 - 0.2 10e3/uL Absolute Immature Granulocytes 0.0 <=0.4 10e3/uL Absolute NRBCs 0.0 10e3/uL NM Lexiscan stress test (nuc card) Result Value Ref Range Target HR 173 Baseline Systolic BP 141 Baseline Diastolic BP 73 Last Stress Systolic BP 144 Last Stress Diastolic BP 82 Baseline HR 65 bpm Max HR 108 Max Predicted HR 62 % Rate Pressure Product 15,552.0 EKG results: Normal sinus rhythm with nonspecific T wave changes. Clinically Significant Risk Factors Present on Admission # Drug Induced Platelet Defect: home medication list includes an antiplatelet medication # Obesity: Estimated body mass index is 31.99 kg/m?? as calculated from the following: Height as of 05/12/24: 1.727 m (5' 8). Weight as of this encounter: 95.4 kg (210 lb 6.4 oz). # Financial/Environmental Concerns: # Asthma: noted on problem list documented in this encounter Miscellaneous Notes * Plan of Care - Chiquis Herrera RN - 05/16/2024 6:34 PM CDT Reason for Admission: AVF/ needs neurosurg consult Cognitive/Mentation: A/Ox 4 Neuros/CMS: Intact ex blurry vision, head pressure, headaches, intermittent tinnitus bilateral, intermittent left side tingling VS: stable. Tele: NSR. /GI: Continent. . Pulmonary: LS clear. Pain: headache/ Oxy given in ICU with improvement of headache and head pressure. Drains/Lines: PIV Skin: intact Activity: Assist x SBA . Diet: regular with thin liquids. Takes pills whole. Discharge: pending neurosurg to see tomorrow Aggression Stoplight Tool: green * Plan of Care - Jovita Castro RN - 05/16/2024 3:27 PM CDT Goal Outcome Evaluation: Plan of Care Reviewed With: patient Outcome Evaluation: Anticipate home with family pending neurosurgery plan * Plan of Care - Lyle Anderson RN - 05/15/2024 11:30 PM CDT Goal Outcome Evaluation: -~Care plan-end of shift note: -~Orientation/Mentation:A&O x4, neuros intact ex slight weakness to left extremities. -~VS: VSS on RA sat 90s -~LS/Pulm:Ls clear -~Tele/Cardiac:SR -~GI:WDL -~:WDL -~Pain:denies -~Mobility:up SBA with walker -~Skin:intact -~Diet: -~Lines/IVs:PIV SL -~Safety/Concern:calls appropriately -~Aggression color:green -~Plan/Shift summary/Goals: reported dizziness at times with ambulating to bathroom, declined offerof prn Meclizine. Denies SOB/CP. Plans for safe discharge pending. * Plan of Care - Shawna Leos RN - 05/15/2024 5:16 PM CDT Pt here with chest pain; L side heaviness/numbness A/Ox4; can be slow to respond at times. Slight LUE and LLE weakness, more noticeable with ambulation. Numbness in LLE. VSS RA. Regular diet, thin liquids. Pills whole. A1/GB/W. Tylenol PRN. Lexiscan and MRI done today. Negative. Discharge pending final consult recs and testing. * Plan of Care - Lyle Anderson RN - 05/15/2024 6:41 AM CDT Goal Outcome Evaluation: -~Care plan-end of shift note: -~Orientation/Mentation:A&O x4 -~VS: VSS on RA sat 90s -~LS/Pulm:Ls clear bilaterally -~Tele/Cardiac:SR w/PVC -~GI:WDL -~:WDL -~Pain:managed with prn tylenol -~Mobility:Up SBA/indep -~Skin:intact -~Diet:NPo ex meds -~Lines/IVs:Left hand w/ NACL 0.9% iv gtts at 100 ml/hr -~Safety/Concern:calls appropriately -~Aggression color:green -~Plan/Shift summary/Goals:denies SOB/CP/dizziness. Plans for NM lexiscan stress test and cardiology consult. * Pharmacy-Admission Medication History - Benjy Palacios RP - 05/14/2024 10:34 PM CDT Pharmacist Admission Medication History Admission medication history is complete. The information provided in this note is only as accurateas the sources available at the time of the update. Information Source(s): Patient and CareEverywhere/SureScripts via in-person Pertinent Information: Pt stated she took oxcarbazepine 1/2 dose last night, and she does not like to continue it due side effects. Changes made to [facility] medication list: Added: None Deleted: vit b complex Changed: none Allergies reviewed with patient and updates made in EHR: no Medication History Completed By: Benjy Palacios [facility] 05/14/2024 10:34 PM [facility] Med List Medication Sig Last Dose acetaminophen (TYLENOL) 500 MG tablet Take 1-2 tablets (500-1,000 mg) by mouth 3 times daily as needed for mild pain or headaches albuterol (PROAIR HFA/PROVENTIL HFA/VENTOLIN HFA) 108 (90 Base) MCG/ACT inhaler Inhale 2 puffs intothe lungs every 4 hours as needed for shortness of breath / dyspnea or wheezing aspirin (ASA) 325 MG EC tablet Take 1 tablet (325 mg) by mouth daily (Patient taking differently: Take 162 mg by mouth daily.) 05/14/2024 BREO ELLIPTA 200-25 MCG/INH Inhaler INHALE 1 PUFF INTO THE LUNGS DAILY 05/14/2024 cetirizine (ZYRTEC) 10 MG tablet Take 10 mg by mouth at bedtime. 05/13/2024 levETIRAcetam (KEPPRA) 750 MG tablet TAKE 1 TABLET BY MOUTH TWICE A DAY (Patient taking differently: Take 375 mg by mouth 2 times daily. Takes 1/2 of 750 mg tab bid) 05/14/2024 at am Lidocaine (LIDOCARE) 4 % Patch Place 1 patch onto the skin every 24 hours To prevent lidocaine toxicity, patient should be patch free for 12 hrs daily. (Patient taking differently: Place 1 patch ontothe skin daily as needed. To prevent lidocaine toxicity, patient should be patch free for 12 hrs daily.) prn LORazepam (ATIVAN) 1 MG tablet Take 1/2-1 tablet daily as needed for onset of dizziness. prn MAGNESIUM PO Take 1 tablet by mouth at bedtime. 05/13/2024 meclizine (ANTIVERT) 25 MG tablet Take 1 tablet (25 mg) by mouth 3 times daily as needed for dizziness prn methyl salicylate-menthol (ICY HOT) ointment Apply topically every 6 hours as needed (pain) psyllium (METAMUCIL) 28.3 % packet Take 1 packet by mouth daily 05/14/2024 rosuvastatin (CRESTOR) 20 MG tablet TAKE 1 TABLET (20 MG) BY MOUTH AT BEDTIME 05/13/2024 senna-docusate (SENOKOT-S/PERICOLACE) 8.6-50 MG tablet Take 2 tablets by mouth 2 times daily as needed for constipation traZODone (DESYREL) 50 MG tablet Take 2 tablets (100 mg) by mouth At Bedtime 05/13/2024 documented in this encounter Plan of Treatment Upcoming Encounters Date Type Department Care Team (Late st Contact Info) Description 05/26/2024 8:30 AM CDT Office Visit [facility] [address] [place] [phone] Denise Woodson Ra, SUPERVISOR [employer] FINANCIAL BUSINESS ANALYST [address] [facility], [place] [phone] 06/08/2024 8:30 AM CDT Office Visit [facility] [address] [place] [phone] Denise Woodson Ra, SUPERVISOR [employer] FINANCIAL BUSINESS ANALYST [address] [facility], [place] [phone] 06/26/2024 2:40 PM CDT Office Visit [facility] [address] [place] [phone] Danna Cardenas PA-C [address] [place], [place] [id number] Scheduled Orders Name Type Priority Associated Diagnoses Orde r Schedule EKG 12-lead, tracing only EKG Routine Enter condition for order release in comments for 100 Occurrences starting 05/14/2024 Oxygen: Nasal cannula Respiratory Care Routine As Needed until discontinued starting 05/14/2024 Oxygen: Nasal cannula Respiratory Care Routine As Needed until discontinued starting 05/15/2024 Scheduled Referrals Name Type Priority Associated Diagnoses Orde r Schedule Follow-Up with Cardiology [facility]ICA Referral Routine: Next available opening Chest pain, unspecified type Expected: 06/22/2024 (Approximate), Expires: 05/15/2025 Adult Neurology Staff Educator Referral Referral Routine: Next available opening Dural arteriovenous fistula History of seizure History of stroke Pain of right upper extremity Expected: 05/16/2024 (Approximate), Expires: 05/16/2025 Primary Care - Care Coordination Referral Referral Routine: Next available opening Gastroesophageal reflux disease with esophagitis without hemorrhage Expected: 05/16/2024 (Approximate), Expires: 05/16/2025 documented as of this encounter Goals Goal [...] Mental Health weekly - PT, OT and PODIATRY TEACHER - PCP appointment 05/26/24 & 06/08/24 - Stroke Neurology Dr. Hoyos 04/14/24 #[phone] - Epilepsy Neurology Dr. Barcenas 05/05/24 follow up recommended in 2 months: 07/05/24 TBD. #[phone] - Vascular Dr. Zambrano 05/01/24 - follow up recommended in 6 months: 11/11/24 TBD #[phone]. - MTM if covered by insurance TBD [...] 24/7 after hours services available. Director Of Recruitment And Admissions will remain available as needed. documented as of this encounter Procedures The patient is currently admitted. The information in this section might not be complete until the patient is discharged. Procedure Name Priority Date/Time Associated Diagnosis Comments MR BRAIN W/O & W CONTRAST Routine 05/15/2024 4:01 PM CDT MRA NECK (CAROTIDS) W/O & W CONTRAST Routine 05/15/2024 4:01 PM CDT MRA BRAIN ([place]) W/O CONTRAST Routine 05/15/2024 4:01 PM CDT NM MPI WITH LEXISCAN Routine 05/15/2024 11:19 AM CDT CBC WITH PLATELETS AND DIFFERENTIAL Routine 05/15/2024 6:25 AM CDT CBC WITH PLATELETS & DIFFERENTIAL Routine 05/15/2024 6:25 AM CDT LIPID REFLEX TO DIRECT LDL PANEL Routine 05/15/2024 6:25 AM CDT BASIC METABOLIC PANEL Routine 05/15/2024 6:25 AM CDT documented in this encounter Results [...] less likely. MIRELA TINEO MD SYSTEM ID: ??[id number] Narrative 05/15/2024 4:10 PM CDT MRI BRAIN [...] less likely. MIRELA TINEO MD SYSTEM ID: [id number] Stevo Islas MD IMG MRI ORD ERABLES * MRA Brain ([place]) wo Contrast (05/15/2024 4:01 PM CDT) Anatomical Region Laterality Modality Head, SUBRAD MR NEURO, UMP MR NEURO, RAD MR Magnetic Resonance Impressions 05/15/2024 4:17 PM CDT IMPRESSION: ??No hemodynamically significant stenosis in the head or evidence of acute vascular injury. ?? MIRELA TINEO MD SYSTEM ID: ??[id number] Narrative 05/15/2024 4:17 PM CDT MR ANGIOGRAM OF THE HEAD WITHOUT CONTRAST ?? 05/15/2024 4:01 PM HISTORY: eb/flow of left sided heaviness, tingling, since yesterday TECHNIQUE: ??3D [id number] MR angiogram of the head without contrast. [...] sided heaviness, tingling, since yesterday TECHNIQUE: 3D [id number] MR angiogram of the head without contrast. [...] vascular injury. MIRELA TINEO MD SYSTEM ID: [id number] Delicia Anna Shimonpushpa SUPER[employer]OR [employer] BUSINESS ANALYST IMG MRI ORDERA BLES * MRA Neck (Carotids) wo & w Contrast (05/15/2024 4:01 PM CDT) Anatomical Region Laterality Modality Neck, SUBRAD MR NEURO, UMP MR NEURO, RAD MR Magnetic Resonance Impressions 05/15/2024 4:12 PM CDT IMPRESSION: ??Normal MR angiogram of the neck. MIRELA TINEO MD SYSTEM ID: ??[id number] Narrative 05/15/2024 4:12 PM CDT MRA NECK WITHOUT AND WITH CONTRAST ??05/15/2024 4:01 PM HISTORY: left sided tingling, eb and flow since yesterday history of prior CVA mri head done last [place] [facility] TECHNIQUE: 2D [id number] MR angiogram of the neck without contrast [...] CVA mri head done last th at [facility] TECHNIQUE: 2D [id number] MR angiogram of the neck without contrast [...] the neck. MIRELA TINEO MD SYSTEM ID: [id number] Delicia Castillo Shimonpushpa SUPER[employer] FIN[employer]CIAL BUSINESS ANALYST IMG MRI ORDERA BLES * NM Lexiscan [...] wall motion is normal. Christen Peng MD [facility] ORDERABLES * CBC with platelets and differential (05/15/2024 6:25 AM CDT) [facility] WBC Count 5.4 4.0 - 11.0 10e3/uL 05/15/2024 7:01 AM CDT LABORATORY RBC Count 4.37 3.80 - 5.20 10e6/uL 05/15/2024 7:01 AM CDT LABORATORY Hemoglobin 13.6 11.7 - 15.7 g/dL 05/15/2024 7:01 AM CDT LABORATORY Hematocrit 40.8 35.0 - 47.0 % 05/15/2024 7:01 AM CDT LABORATORY MCV 93 78 - 100 fL 05/15/2024 7:01 AM [facility] LAB[facility]ATORY MCH 31.1 26.5 - 33.0 pg 05/15/2024 7:01 AM [facility] MCHC 33.3 31.5 - 36.5 g/dL 05/15/2024 7:01 AM [facility] RDW 11.7 10.0 - 15.0 % 05/15/2024 7:01 AM [facility] Platelet Count 172 150 - 450 10e3/uL 05/15/2024 7:01 AM [facility] % Neutrophils 49 % 05/15/2024 7:01 AM [facility] % Lymphocytes 35 % 05/15/2024 7:01 AM [facility] % Monocytes 6 % 05/15/2024 7:01 AM [facility] % Eosinophils 8 % 05/15/2024 7:01 AM [facility] % Basophils 1 % 05/15/2024 7:01 AM [facility] % Immature Granulocytes 0 % 05/15/2024 7:01 AM [facility] NRBCs per 100 WBC 0 <1 /100 024 7:01 AM [facility] Absolute Neutrophils 2.7 1.6 - 8.3 10e3/uL 05/15/2024 7:01 AM [facility] Absolute Lymphocytes 1.9 0.8 - 5.3 10e3/uL 05/15/2024 7:01 AM [facility] Absolute Monocytes 0.3 0.0 - 1.3 10e3/uL 05/15/2024 7:01 AM [facility] Absolute Eosinophils 0.4 0.0 - 0.7 10e3/uL 05/15/2024 7:01 AM [facility] Absolute Basophils 0.0 0.0 - 0.2 10e3/uL 05/15/2024 7:01 AM [facility] Absolute Immature Granulocytes 0.0 <=0.4 10e3/uL 05/15/2024 7:01 AM [facility] Absolute NRBCs 0.0 10e3/uL 05/15/2024 7:01 AM [facility] LAB[facility] Blood STRUCTURE OF RIGHT HAND / Unknown Venipuncture / Unknown 05/15/2024 6:25 AM CDT 05/15/2024 6:57 AM CDT Christen Peng MD LAB - BLOOD ORDERABL ES LABORATORY [facility] [address], [address] [place] [address], [facility] [phone] * Basic metabolic panel (05/15/2024 6:25 AM CDT) Sodium 141 135 - 145 mmol/L 05/15/2024 7:26 AM CDT LABORATORY Potassium 4.5 3.4 - 5.3 mmol/L 05/15/2024 7:26 AM CDT LABORATORY Chloride 106 98 - 107 mmol/L 05/15/2024 7:26 AM CDT LABORATORY Carbon Dioxide (CO2) 27 22 - 29 mmol/L 05/15/2024 7:26 AM T LABORATORY Anion Gap 8 7 - 15 mmol/L 05/15/2024 7:26 AM CDT LABORATORY Urea Nitrogen 15.4 6.0 - 20.0 mg/dL 05/15/2024 7:26 AM CDT LABORATORY Creatinine 0.90 0.51 - 0.95 mg/dL 05/15/2024 7:26 AM CDT LABORATORY GFR Estimate 79 >60 mL/min/1.7 3m2 05/15/2024 7:26 AM T LABORATORY Comment:eGFR calculated usin g 2020 CKD-EPI equation. Calcium 9.1 8.8 - 10.4 mg/dL 05/15/2024 7:26 AM T LABORATORY Comment:Reference intervals for this test were updated on 03/31/2024 to reflect our healthy population more accurately. There may be differences in the flagging of prior results with similar values performed with this method. Those prior results can be interpreted in the context of the updated reference intervals. Glucose 89 70 - 99 mg/dL 05/15/2024 7:26 AM T LABORATORY Blood STRUCTURE OF RIGHT HAND / Unknown Venipuncture / Unknown 05/15/2024 6:25 AM CDT 05/15/2024 6:57 AM CDT Christen Peng MD LAB - BLOOD ORDERABL ES LABORATORY [facility] [address], [address] [place] [address], [place] [phone] * Lipid panel reflex to direct LDL [...] LAB - BLOOD ORDERABL ES [facility] LABORATORY [facility] [address], [address] [place] [address], [place] LABORATORY [facility] [address], [address] [place] [address], [place] [phone] documented in this encounter Visit Diagnoses Diagnosis Gastroesophageal reflux disease with esophagitis without hemorrhage- Primary Gastroesophageal reflux disease with esophagitis without hemorrhage Chest pain, unspecified type Dural arteriovenous fistula Cerebral aneurysm, nonruptured History of seizure History of stroke Transient ischemic attack (TIA), and cerebral infarction without residual deficits Pain of right upper extremity Chest pain, unspecified type History of stroke Transient ischemic attack (TIA), and cerebral infarction without residual deficits Dural arteriovenous fistula Cerebral aneurysm, nonruptured History of seizure Pain of right upper extremity documented in this encounter Administered Medications Active Administered Medications - up to 3 most recent administrations Medication Order MAR Action Action Date Dose Rate Site acetaminophen (TYLENOL) tablet 975 mg 975 mg, Oral, 3 TIMES DAILY, First dose on Sat05/16/24 at 1600, Maximum acetaminophen dose from all sources = 75 mg/kg/day not to exceed 4 grams/day. $Given 05/16/2024 9:03 PM CDT 975 mg $Given 05/16/2024 3:30 PM CDT 975 mg albuterol (PROVENTIL HFA/VENTOLIN HFA) inhaler 2 puff, Inhalation, EVERY 5 MIN PRN, other, may repeat every 5 minutes x 3 doses if needed, Starting on Sat05/15/24 at 0913, For 3 doses, Max total three doses Indications: - COPD - severe bronchospasm (notify the procedural provider that Albuterol was administered) Check the dose counter on the inhaler to ensure there are doses remaining before administering. Prime by spraying into the air 4 times prior to first use and if not used within 2 weeks. aspirin EC tablet 162 mg 162 mg, Oral, DAILY, First dose on Sat05/15/24 at 0900 $Given 05/16/2024 8:08 AM CDT 162 mg $Given 05/15/2024 10:13 AM CDT 162 mg cetirizine (zyrTEC) tablet 10 mg 10 mg, Oral, AT BEDTIME, First dose on Sat05/14/24 at 2330 $Given 05/16/2024 9:04 PM CDT 10 mg $Given 05/15/2024 10:07 PM CDT 10 mg $Given 05/15/2024 12:32 AM CDT 10 mg diazepam (VALIUM) tablet 5 mg 5 mg, Oral, EVERY 30 MIN PRN, anxiety, Starting on Sat05/15/24 at 0913, For 2 doses, LORazepam (ATIVAN) preferred over diazepam (Valium) for patients over 65 per recommendation on age adjusted medication policy. Give 1 hour prior to the procedure, if the patient has not received a dose on the patient care unit or at home prior to arrival. May repeat 5 mg dose every 30 minutes x 1. MAX total dose of 10 mg. Hold if respiratory rate less than 12 or systolic blood pressure less than 90 mmHg. fluticasone-vilanterol (BREO ELLIPTA) 200-25 MCG/ACT inhaler 1 puff 1 puff, Inhalation, DAILY, First dose on Sat05/15/24 at 0900, *Do not use more frequently than once daily.* Rinse mouth after use. Check the dose counter on the inhaler to ensure there are doses remaining before administering. $Given 05/16/2024 8:08 AM CDT 1 puff $Given 05/15/2024 10:16 AM CDT 1 puff HYDROmorphone (PF) (DILAUDID) injection 0.5 mg 0.5 mg, Intravenous, EVERY 2 HOURS PRN, severe pain, Starting on 05/16/24 at 1336 levETIRAcetam (KEPPRA) half-tab 375 mg 375 mg, Oral, 2 TIMES DAILY, First dose on Marii 05/14/24 at 2330 $Given 05/16/2024 9:53 PM CDT 375 mg $Given 05/16/2024 10:55 AM CDT 375 mg $Given 05/15/2024 9:02 PM CDT 375 mg LORazepam (ATIVAN) tablet 0.5 mg 0.5 mg, Oral, EVERY 10 MIN PRN, anxiety, Starting on Sat05/15/24 at 0913, For 2 doses, Give 1 hour prior to the procedure. LORazepam (ATIVAN) preferred over diazepam (Valium) for patients over 65 per recommendation on age adjusted medication policy May repeat 0.5 mg dose every 10 minutes x 1. Max total dose of 1 mg. Hold if respiratory rate is less than 12 or systolic blood pressure less than 90 mmHg. magnesium oxide (MAG-OX) half-tab 200 mg 200 mg, Oral, AT BEDTIME, First dose on Marii 05/14/24 at 2330 $Given 05/16/2024 9:09 PM CDT 200 mg $Given 05/15/2024 10:07 PM CDT 200 mg $Given 05/15/2024 12:33 AM CDT 200 mg naloxone (NARCAN) injection 0.2 mg 0.2 mg, Intravenous, EVERY 2 MIN PRN, opioid reversal, Starting on Marii 05/14/24 at 2236, Administer intravenous route when available and notify [...] 2 MIN PRN, opioid reversal, Starting on Marii 05/14/24 at 2236, Administer intramuscular if an intravenous route is [...] 2 MIN PRN, opioid reversal, Starting on Marii 05/14/24 at 2236, Administer intravenous route when available and notify [...] 2 MIN PRN, opioid reversal, Starting on Marii 05/14/24 at 2236, Administer intramuscular if an intravenous route is [...] have not improved after 4 naloxone doses. OXcarbazepine (TRILEPTAL) tablet 150 mg 150 mg, Oral, AT BEDTIME, First dose on Sat05/15/24 at 2200 oxyCODONE (ROXICODONE) tablet 5 mg 5 mg, Oral, EVERY 4 HOURS PRN, severe pain, IF pain not managed with non-pharmacological and non-opioid interventions, Starting on Sat05/14/24 at 2156, May use concomitant with non-opioid analgesics. $Given 05/16/2024 7:43 PM CDT 5 mg $Given 05/16/2024 12:00 PM CDT 5 mg pantoprazole (PROTONIX) EC tablet 40 mg 40 mg, Oral, EVERY MORNING BEFORE BREAKFAST, First dose on Sat05/15/24 at 0730, DO NOT CRUSH. $Given 05/16/2024 7:57 AM CDT 40 mg $Given 05/15/2024 10:13 AM CDT 40 mg prochlorperazine (COMPAZINE) injection 5 mg 5 mg, Intravenous, EVERY 6 HOURS PRN, nausea, vomiting, Administer over 1-2 Minutes, Starting on Sat05/15/24 at 1726 psyllium (METAMUCIL/KONSYL) Packet 1 packet 1 packet, Oral, DAILY, First dose on Sat05/15/24 at 0900, Powder should be diluted with fluid before given. $Given 05/16/2024 8:09 AM CDT 1 packet $Given 05/15/2024 10:12 AM CDT 1 packet rosuvastatin (CRESTOR) tablet 20 mg 20 mg, Oral, AT BEDTIME, First dose on Sat05/14/24 at 2330 $Given 05/16/2024 9:04 PM CDT 20 mg $Given 05/15/2024 10:07 PM CDT 20 mg $Given 05/15/2024 12:33 AM CDT 20 mg senna-docusate (SENOKOT-S/PERICOLACE) 8.6-50 MG per tablet 1 tablet 1 tablet, Oral, 2 TIMES DAILY PRN, constipation, Starting on 05/16/24 at 1950, Hold for loose stools. $Given 05/16/2024 9:04 PM CDT 1 tablet sodium chloride (PF) 0.9% PF flush 1-10 mL 1-10 mL, Intravenous, EVERY 10 MIN PRN, other, for peripheral IV flush post IV meds, Starting on Marii 05/14/24 at 2313, Cardiac Pre-procedure $Given 05/15/2024 9:32 AM CDT 5 mLs $Given 05/15/2024 9:20 AM CDT 5 mLs $Given 05/15/2024 9:05 AM CDT 10 mLs sodium chloride 0.9 % infusion at 100 mL/hr, Intravenous, CONTINUOUS, Starting on Marii 05/14/24 at 2200, Until Discontinued $New Bag 05/14/2024 10:50 PM CDT 100 mL/hr traZODone (DESYREL) tablet 100 mg 100 mg, Oral, AT BEDTIME, First dose on Marii 05/14/24 at 2330 $Given 05/16/2024 9:04 PM CDT 100 mg $Given 05/15/2024 10:07 PM CDT 100 mg $Given 05/15/2024 12:32 AM CDT 100 mg Inactive Administered Medications - up to 3 most recent administrations Medication Order MAR Action Action Date Dose Rate Site acetaminophen (TYLENOL) tablet 650 mg 650 mg, Oral, EVERY 4 HOURS PRN, mild pain, other, and adjunct with moderate or severe pain or per patient request, Starting on Marii 05/14/24 at 2156, Alternate with ibuprofen if ordered. Maximum acetaminophen dose from all sources = 75 mg/kg/day not to exceed 4 grams/day. $Given 05/16/2024 10:25 AM CDT 650 mg $Given 05/16/2024 5:40 AM CDT 650 mg $Given 05/15/2024 4:21 PM CDT 650 mg aminophylline 50-100 mg 50-100 mg, Intravenous, ONCE PRN, other, For adverse effects (flushing, headache, hypotension, nausea) lasting 4 minutes or longer, or at onset of severe regadenoson side effects (angina, abdominal discomfort, chest pain/discomfort, dizziness/syncope, dyspnea/wheezing, dysrhythmia, severe bronchospasms, second or third degree heart block, ST segment depression), Starting on Sat05/15/24 at 0913, For 1 dose, For Stress Testing with nuclear medicine: Give 50mg slow IV injection (over 30-60 seconds, not to exceed 50mg over 30 seconds). May repeat x 1 for persistent symptoms lasting 5 minutes after initial aminophylline dose. Maximum dose is 250mg in 24 hours. For Stress Testing with MRI or other modalities: Give 100mg slow IV injection (over 30-60 seconds, not to exceed 50mg over 30 seconds). May repeat x 1 for persistent symptoms lasting 5 minutes after initial aminophylline dose. Maximum dose is 250mg in 24 hours. Notify procedural provider that aminophylline was administered and reason for administration. Hold aminophylline if patient has a history of seizure disorder. $Given 05/15/2024 9:31 AM CDT 50 mg gadobutrol (GADAVIST) injection 10 mL 10 mL, Intravenous, ONCE, On Sat05/15/24 at 1600, For 1 dose, Supplied by, and administered by MRI. $Given 05/15/2024 3:36 PM CDT 10 mLs regadenoson (LEXISCAN) injection 0.4 mg 0.4 mg, Intravenous, ONCE, On Sat05/15/24 at 0930, For 1 dose, Give by rapid IV injection (approximately over 10-15 seconds). Follow with a saline flush immediately after regadenoson administration, then follow with radioactive tracer (radiopharmaceutical agent). $Given 05/15/2024 9:20 AM CDT 0.4 mg sodium chloride (PF) 0.9% PF flush 100 mL 100 mL, Intravenous, ONCE, On Sat05/15/24 at 1600, For 1 dose $Given 05/15/2024 3:36 PM CDT 100 mLs sodium chloride 0.9 % infusion at 30 mL/hr, Intravenous, CONTINUOUS, TKO (exclude from discharge list) May bolus as directed by procedural provider Record total infusion on -NOV and the I & 0 Doc Flow sheet, Cardiac Intra-procedure, Starting on Sat05/15/24 at 0930, Until Sat05/15/24 at 1129 $New Bag 05/15/2024 10:33 AM CDT 30 mL/hr technetium sestamibi 2 UD per study (Tc99m MiBi) radioisotope injection 3-42 millicurie 3-42 millicurie, Intravenous, EVERY 2 HOURS, First dose on Sat05/15/24 at 0800, For 2 doses, Radioisotope, supplied by and administered by Nuclear Medicine. *HW* $Given 05/15/2024 9:20 AM CDT 32.4 millicuries $Given 05/15/2024 7:10 AM CDT 11.5 millicuries documented in this encounter Active and Recently Administered Medications Times are shown in CDT. Scheduled Medication Order 05/15/2024 05/16/2024 05/17/2024 acetaminophen (TYLENOL) tablet 975 mg 975 mg, Oral, 3 TIMES DAILY, First dose on Sat05/16/24 at 1600, Maximum acetaminophen dose from all sources = 75 mg/kg/day not to exceed 4 grams/day. 1530 ($Given - Provider: Annalisa Hensley RN)2103 ($Given - Provider: Nisa Cole RN) 0900 (Due)1600 (Due)2200 (Due) aspirin EC tablet 162 mg 162 mg, Oral, DAILY, First dose on Sat05/15/24 at 0900 1013 ($Given - Provider: Shawna Leos RN) 0808 ($Given - Provider: Annalisa Hensley RN) 0900 (Due) cetirizine (zyrTEC) tablet 10 mg 10 mg, Oral, AT BEDTIME, First dose on Sat05/14/24 at 2330 0032 ($Given - Provider: Lyle Anderson RN)2207 ($Given - Provider: Lyle Anderson RN) 2104 ($Given - Provider: Nisa Cole RN) 2200 (Due) fluticasone-vilanterol (BREO ELLIPTA) 200-25 MCG/ACT inhaler 1 puff 1 puff, Inhalation, DAILY, First dose on Sat05/15/24 at 0900, *Do not use more frequently than once daily.* Rinse mouth after use. Check the dose counter on the inhaler to ensure there are doses remaining before administering. 1016 ($Given - Provider: Shawna Leos RN) 0808 ($Given - Provider: Annalisa Hensley RN) 0900 (Due) gadobutrol (GADAVIST) injection 10 mL (COMPLETED) 10 mL, Intravenous, ONCE, On Sat05/15/24 at 1600, For 1 dose, Supplied by, and administered by MRI. 1536 ($Given - Provider: Dillan Huggins) levETIRAcetam (KEPPRA) half-tab 375 mg 375 mg, Oral, 2 TIMES DAILY, First dose on Sat05/14/24 at 2330 0135 ($Given - Provider: Lyle Anderson RN)1013 ($Given - Provider: Shawna Leos RN)2102 ($Given - Provider: Lyle Anderson RN) 1055 ($Given - Provider: Annalisa Hensley RN)2153 ($Given - Provider: Nisa Cole RN) 0900 (Due)2100 (Due) magnesium oxide (MAG-OX) half-tab 200 mg 200 mg, Oral, AT BEDTIME, First dose on Sat05/14/24 at 2330 0033 ($Given - Provider: Lyle Anderson RN)2207 ($Given - Provider: Lyle Anderson RN) 210 ($Given - Provider: Nisa Cole RN) 2199 (Due) OXcarbazepine (TRILEPTAL) tablet 150 mg 150 mg, Oral, AT BEDTIME, First dose on Sat05/15/24 at 2200 220 (Not Given - Provider: Lyle Anderson RN - Reason: Patient/family refused) 2103 (Not Given - Provider: Nisa Cole RN - Reason: Patient/family refused) 2200 (Due) pantoprazole (PROTONIX) EC tablet 40 mg 40 mg, Oral, EVERY MORNING BEFORE BREAKFAST, First dose on Sat05/15/24 at 0730, DO NOT CRUSH. 1013 ($Given - Provider: Shawna Leos RN) 0757 ($Given - Provider: Annalisa Hensley RN) 0730 (Due) psyllium (METAMUCIL/KONSYL) Packet 1 packet 1 packet, Oral, DAILY, First dose on Sat05/15/24 at 0900, Powder should be diluted with fluid before given. 1012 ($Given - Provider: Shawna Leos RN) 0809 ($Given - Provider: Annalisa Hensley, GEMA) 0900 (Due) regadenoson (LEXISCAN) injection 0.4 mg (COMPLETED) 0.4 mg, Intravenous, ONCE, On Sat05/15/24 at 0930, For 1 dose, Give by rapid IV injection (approximately over 10-15 seconds). Follow with a saline flush immediately after regadenoson administration, then follow with radioactive tracer (radiopharmaceutical agent). 0920 ($Given - Provider: Ashely Mejia RN) rosuvastatin (CRESTOR) tablet 20 mg 20 mg, Oral, AT BEDTIME, First dose on Sat05/14/24 at 2330 0033 ($Given - Provider: Lyle Anderson RN)220 ($Given - Provider: Lyle Anderson RN) 2103 ($Given - Provider: Nisa Cole RN) 2199 (Due) sodium chloride (PF) 0.9% PF flush 100 mL (COMPLETED) 100 mL, Intravenous, ONCE, On Sat05/15/24 at 1600, For 1 dose 1536 ($Given - Provider: Dillan Huggins) technetium sestamibi 2 UD per study (Tc99m MiBi) radioisotope injection 3-42 millicurie (COMPLETED) 3-42 millicurie, Intravenous, EVERY 2 HOURS, First dose on Sat05/15/24 at 0800, For 2 doses, Radioisotope, supplied by and administered by Nuclear Medicine. *HW* 0710 ($Given - Provider: Vanessa Ivory)0920 ($Given - Provider: Vanessa Ivory) traZODone (DESYREL) tablet 100 mg 100 mg, Oral, AT BEDTIME, First dose on Sat05/14/24 at 2330 0032 ($Given - Provider: Lyle Anderson RN)220 ($Given - Provider: Lyle Anderson RN) 210 ($Given - Provider: Nisa Cole RN) 2200 (Due) Continuous Medication Order 05/15/2024 05/16/2024 05/17/2024 sodium chloride 0.9 % infusion at 100 mL/hr, Intravenous, CONTINUOUS, Starting on Marii 05/14/24 at 2200, Until Discontinued 1749 (Stopped - Provider: Shawna Leos RN - Comment: per pt request) sodium chloride 0.9 % infusion () at 30 mL/hr, Intravenous, CONTINUOUS, TKO (exclude from discharge list) May bolus as directed by procedural provider Record total infusion on E-MAR and the I & 0 Doc Flow sheet, Cardiac Intra-procedure, Starting on Sat05/15/24 at 0930, Until Sat05/15/24 at 1129 1033 ($New Bag - Provider: Shawna Leos RN) PRN Medication Order 05/15/2024 05/16/2024 05/17/2024 acetaminophen (TYLENOL) tablet 650 mg (CANCELED)(Linked Group 1) 650 mg, Oral, EVERY 4 HOURS PRN, mild pain, other, and adjunct with moderate or severe pain or per patient request, Starting on Marii 05/14/24 at 2156, Alternate with ibuprofen if ordered. Maximum acetaminophen dose from all sources = 75 mg/kg/day not to exceed 4 grams/day. 0208 ($Given - Provider: Lyle Anderson RN)1621 ($Given - Provider: Shawna Leos RN) 0540 ($Given - Provider: Sudhakar Evangelista RN)1025 ($Given - Provider: Annalisa Hensley RN) albuterol (PROVENTIL HFA/VENTOLIN HFA) inhaler 2 puff, Inhalation, EVERY 4 HOURS PRN, shortness of breath, wheezing, Starting on Marii 05/14/24 at 2311, Check the dose counter on the inhaler to ensure there are doses remaining before administering. Prime by spraying into the air 4 times prior to first use and if not used within 2 weeks. albuterol (PROVENTIL HFA/VENTOLIN HFA) inhaler 2 puff, Inhalation, EVERY 5 MIN PRN, other, may repeat every 5 minutes x 3 doses if needed, Starting on Sat05/15/24 at 0913, For 3 doses, Max total three doses Indications: - COPD - severe bronchospasm (notify the procedural provider that Albuterol was administered) Check the dose counter on the inhaler to ensure there are doses remaining before administering. Prime by spraying into the air 4 times prior to first use and if not used within 2 weeks. alum & mag hydroxide-simethicone (MAALOX) suspension 30 mL 30 mL, Oral, EVERY 4 HOURS PRN, indigestion, heartburn, Starting on Marii 05/14/24 at 2154, Shake well. aminophylline 50-100 mg (COMPLETED) 50-100 mg, Intravenous, ONCE PRN, other, For adverse effects (flushing, headache, hypotension, nausea) lasting 4 minutes or longer, or at onset of severe regadenoson side effects (angina, abdominal discomfort, chest pain/discomfort, dizziness/syncope, dyspnea/wheezing, dysrhythmia, severe bronchospasms, second or third degree heart block, ST segment depression), Starting on Sat05/15/24 at 0913, For 1 dose, For Stress Testing with nuclear medicine: Give 50mg slow IV injection (over 30-60 seconds, not to exceed 50mg over 30 seconds). May repeat x 1 for persistent symptoms lasting 5 minutes after initial aminophylline dose. Maximum dose is 250mg in 24 hours. For Stress Testing with MRI or other modalities: Give 100mg slow IV injection (over 30-60 seconds, not to exceed 50mg over 30 seconds). May repeat x 1 for persistent symptoms lasting 5 minutes after initial aminophylline dose. Maximum dose is 250mg in 24 hours. Notify procedural provider that aminophylline was administered and reason for administration. Hold aminophylline if patient has a history of seizure disorder. 0931 ($Given - Provider: Ashely Mejia RN) diazepam (VALIUM) tablet 5 mg 5 mg, Oral, EVERY 30 MIN PRN, anxiety, Starting on Sat05/15/24 at 0913, For 2 doses, LORazepam (ATIVAN) preferred over diazepam (Valium) for patients over 65 per recommendation on age adjusted medication policy. Give 1 hour prior to the procedure, if the patient has not received a dose on the patient care unit or at home prior to arrival. May repeat 5 mg dose every 30 minutes x 1. MAX total dose of 10 mg. Hold if respiratory rate less than 12 or systolic blood pressure less than 90 mmHg. HOLD: Caffeine containing medications 12 hours prior to the procedure Medication(s) to hold: Caffeine containing medications: Anacin, Excedrin, NoDoz, Vivarin, Midol, Valorin, Parameter for hold (doses,days,conditions) : Hold before Procedure or Test, Hours or days to hold med before/after procedure/surgery: 12 hours prior to the procedure, HOLD, Starting on Marii 05/14/24 at 2313, Until Discontinued, Cardiac Pre-procedure HOLD: dipyridamole (PERSANTINE) or aspirin/dipyridamole (AGGRENOX) 48 hours prior to the procedure Medication(s) to hold: Dipyridamole (Persantine) or aspirin/dipyridamole (Aggrenox), Parameter for hold (doses,days,conditions) : Hold before Procedure or Test, Hours or days to hold med before/after procedure/surgery: 48 hours prior to the procedure, HOLD, Starting on Marii 05/14/24 at 2313, Until Discontinued, Cardiac Pre-procedure HOLD: theophylline or aminophylline 12 hours prior to the procedure Medication(s) to hold: theophylline or aminophylline, Parameter for hold (doses,days,conditions) : Hold before Procedure or Test, Hours or days to hold med before/after procedure/surgery: 12 hours prior to the procedure, HOLD, Starting on Marii 05/14/24 at 2313, Until Discontinued, Cardiac Pre-procedure HYDROmorphone (DILAUDID) injection 0.2 mg 0.2 mg, Intravenous, EVERY 2 HOURS PRN, moderate pain, IF patient cannot take oral opioid OR IF pain not managed with non-pharmacological, non-opioid, or oral opioid interventions if ordered, Starting on Marii 05/14/24 at 2156, May use concomitant with non-opioid analgesics. HYDROmorphone (DILAUDID) injection 0.4 mg 0.4 mg, Intravenous, EVERY 2 HOURS PRN, severe pain, IF patient cannot take oral opioid OR IF pain not managed with non-pharmacological, non-opioid, or oral opioid interventions if ordered, Starting on Marii 05/14/24 at 2156, May use concomitant with non-opioid analgesics. HYDROmorphone (PF) (DILAUDID) injection 0.5 mg 0.5 mg, Intravenous, EVERY 2 HOURS PRN, severe pain, Starting on [facility] 05/16/24 at 1336 IF patient diabetic - HOLD: ALL ORAL HYPOGLYCEMICS and include: glipizide, glyburide, glimepiride, gliclazide, metformin, any metformin containing medication, on day of the procedure Medication(s) to hold: ALL ORAL HYPOGLYCEMICS (Full list in Admin Instructions), Parameter for hold (doses,days,conditions) : Hold before Procedure or Test, Hours or days to hold med before/after procedure/surgery: the day of the procedure, HOLD, Starting on Sat05/14/24 at 2313, Until Discontinued, ALL ORAL HYPOGLYCEMICS and include glipizide, glyburide, glimepiride, gliclazide, metformin (GLUCOPHAGE, GLUMETZA, FORTAMET, RIOMET) and metformin containing medications: alogliptin/metformin (KAZANO), glipizide/metformin (METAGLIP), glyburide/metformin (GLUCOVANCE), rosiglitazone/metformin (AVANDAMET), dapagliflozin/metformin (XIGDUO XR), sitagliptin/metformin (JANUMET, JANUMET XR), linagliptin/metformin (JENTADUETO), repaglinide/metformin (PRANDIMET), saxagliptin/metformin (KOMBIGLYZE XR), canagliflozin/metformin (INVOKAMET), and pioglitazone/metformin (ACTOPLUS MET, ACTOPLUS MET XR)., Cardiac Pre-procedure LORazepam (ATIVAN) tablet 0.5 mg 0.5 mg, Oral, DAILY PRN, anxiety, other, dizziness, Starting on Sat05/14/24 at 2312 LORazepam (ATIVAN) tablet 0.5 mg 0.5 mg, Oral, EVERY 10 MIN PRN, anxiety, Starting on Sat05/15/24 at 0913, For 2 doses, Give 1 hour prior to the procedure. LORazepam (ATIVAN) preferred over diazepam (Valium) for patients over 65 per recommendation on age adjusted medication policy May repeat 0.5 mg dose every 10 minutes x 1. Max total dose of 1 mg. Hold if respiratory rate is less than 12 or systolic blood pressure less than 90 mmHg. meclizine (ANTIVERT) tablet 25 mg 25 mg, Oral, 3 TIMES DAILY PRN, dizziness, Starting on Sat05/14/24 at 2312 naloxone (NARCAN) injection 0.2 mg(Linked Group 2) 0.2 mg, Intravenous, EVERY 2 MIN PRN, opioid reversal, Starting on Marii 05/14/24 at 2236, Administer intravenous route when available and notify [...] 2 MIN PRN, opioid reversal, Starting on Marii 05/14/24 at 2236, Administer intramuscular if an intravenous route is [...] 2 MIN PRN, opioid reversal, Starting on Marii 05/14/24 at 2236, Administer intravenous route when available and notify [...] 2 MIN PRN, opioid reversal, Starting on Marii 05/14/24 at 2236, Administer intramuscular if an intravenous route is [...] have not improved after 4 naloxone doses. nitroGLYcerin (NITROSTAT) sublingual tablet 0.4 mg 0.4 mg, Sublingual, EVERY 5 MIN PRN, chest pain, Starting on Marii 05/14/24 at 2154, Maximum 3 doses in 15 minutes. Notify provider if no relief after 3 doses. Do NOT give nitroGLYcerin SL if the patient has received sildenafil (VIAGRA/REVATIO), avanafil (STENDRA) or vardenafil (LEVITRA/STAXYN) within the last 24 hours, OR tadalafil (CIALIS/ADCIRCA) within the last 48 hours. Inform provider if patient has taken one of those medications. oxyCODONE (ROXICODONE) tablet 5 mg 5 mg, Oral, EVERY 4 HOURS PRN, severe pain, IF pain not managed with non-pharmacological and non-opioid interventions, Starting on Marii 05/14/24 at 2156, May use concomitant with non-opioid analgesics. 1200 ($Given - Provider: Annalisa Hensley RN)1943 ($Given - Provider: Chiquis Herrera RN) oxyCODONE IR (ROXICODONE) half-tab 2.5 mg 2.5 mg, Oral, EVERY 4 HOURS PRN, moderate pain, IF pain not managed with non-pharmacological and non-opioid interventions, Starting on Marii 05/14/24 at 2156, May use concomitant with non-opioid analgesics. prochlorperazine (COMPAZINE) injection 5 mg 5 mg, Intravenous, EVERY 6 HOURS PRN, nausea, vomiting, Administer over 1-2 Minutes, Starting on Sat05/15/24 at 1726 senna-docusate (SENOKOT-S/PERICOLACE) 8.6-50 MG per tablet 1 tablet 1 tablet, Oral, 2 TIMES DAILY PRN, constipation, Starting on Sat05/16/24 at 1950, Hold for loose stools. 2104 ($Given - Provider: Nisa Cole RN) sodium chloride (PF) 0.9% PF flush 1-10 mL 1-10 mL, Intravenous, EVERY 10 MIN PRN, other, for peripheral IV flush post IV meds, Starting on Marii 05/14/24 at 2313, Cardiac Pre-procedure 0905 ($Given - Provider: Ashely Mejia RN)0920 ($Given - Provider: Ashely Mejia, GEMA)0932 ($Given - Provider: Ashely Mejia RN) Linked Groups Order Group 1: acetaminophen (TYLENOL) tablet 650 mg (CANCELED)Jump to med 650 mg, Oral, EVERY 4 HOURS PRN, mild pain, other, and adjunct with moderate or severe pain or per patient request, Starting on Marii 05/14/24 at 2156, Alternate with ibuprofen if ordered. Maximum acetaminophen dose from all sources = 75 mg/kg/day not to exceed 4 grams/day. Or acetaminophen (TYLENOL) Suppository 650 mg (CANCELED) 650 mg, Rectal, EVERY 4 HOURS PRN, mild pain, other, and adjunct with moderate or severe pain or per patient request, Starting on Marii 05/14/24 at 2156, Alternate with ibuprofen if ordered. Maximum acetaminophen dose from all sources = 75 mg/kg/day not to exceed 4 grams/day. Group 2: naloxone (NARCAN) injection 0.2 mgJump to med 0.2 mg, Intravenous, EVERY 2 MIN PRN, opioid reversal, Starting on Marii 05/14/24 at 2236, Administer intravenous route when available and notify [...] 2 MIN PRN, opioid reversal, Starting on Marii 05/14/24 at 2236, Administer intravenous route when available and notify [...] 2 MIN PRN, opioid reversal, Starting on Marii 05/14/24 at 2236, Administer intramuscular if an intravenous route is [...] 2 MIN PRN, opioid reversal, Starting on Marii 05/14/24 at 2236, Administer intramuscular if an intravenous route is [...] have not improved after 4 naloxone doses. documented in this encounter Additional Health Concerns Active Problems Noted Date Diagnosed Date Increased risk of re-admission 02/18/2024 Assessment Noted Time PHQ-9 Depression Total Score: 5 03/17/20 24 9:45 AM CDT documented as of this encounter Care Teams Optical Engineering Manager Relationship Specialty Start Date End Date Winston Villatoro OD [facility] [place] [address] [place] [address] PCP - Ophthalmology Ophthalmology 02/11/13 Denise Woodson Ra, APRN FINANCIAL BUSINESS ANALYST [address] [place] [address] PCP - General Family Practice 09/21/20 Denise Woodson Ra, APRN FINANCIAL BUSINESS ANALYST [address] [place] [address] Assigned PCP 07/17/20 Usha Simon APRN FINANCIAL BUSINESS ANALYST [address] [facility], [place] [address] Nurse Practitioner Neurological Surgery 01/24/24 Dangelo Salinas MD [address] [place] [address] Neurology 01/27/24 Anastasia Stearns, RN Lead Director Of Recruitment And Admissions 02/06/24 Germaine Lopez, W Community Health Worker Primary Care - CC 02/18/24 Lisa Zambrano MD [address] [place] [id number] Assigned Heart and Vascular Provider 05/08/24 Raul Hoyos MD [address] [facility] [address] Assigned Neuroscience Provider 05/08/24 documented as of this encounter
--- OUTSIDE RECORDS SUMMARY | 2024-05-17 01:22 | XMS_ITS | Encounter Summary ---
Author Organization [facility] Address [address] [place] [address]. [place] [address] Care Team Providers Care Lace Pinner Name Role Phone ShaunaWinston moralez OD Unavailable [phone] Denise Woodson Ra, APRN LIGHT FIXTURE SERVICER Unavailable Denise Woodson Ra, APRN LIGHT FIXTURE SERVICER Primary Care Provid er Usha Simon APRN LIGHT FIXTURE SERVICER Unavailable [phone] Dangelo Salinas MD Unavailable Anastasia Stearns RN Unavailable Germaine Lopez CHW Unavailable [phone] Lisa Zambrano MD Unavailable [phone] aRul Hoyos MD Unavailable Reason for Visit * Reason Onset Date Comments Forms 05/15/2024 disability Encounter Details Date Type Department Care Team (Late st Contact Info) Description 05/15/2024 Telephone [facility] [address] [place] [address] Denise Woodson Ra, APRN LIGHT FIXTURE SERVICER [address] [place] [address] Forms (disability) Social History Tobacco Use Types Packs/Day Years [...] How often do you attend cheondoism or worship serv ices? Never 02/28/2024 Do [...] * Telephone Encounter - Qing Copeland - 05/15/2024 12:46 PM CDT Duplicate encounter. Qing Copeland Lead Physician Practice Coordinator [facility] * Telephone Encounter - Lauro Jarquin RN - 05/15/2024 12:14 PM CDT Kaleb with [employer] calling to inquire if short term disability forms were received. Provided [facility] fax number to re-fax forms: [phone]. Please keep an eye out for this fax and return to PCP for review. Thank you! Lauro Jarquin RN on 05/15/2024 at 12:19 PM documented in this encounter Plan of Treatment Upcoming Encounters Date Type Department Care Team (Late st Contact Info) Description 05/26/2024 8:30 AM CDT Office Visit [facility] [address] [place] [phone] Denise Woodson Ra, COFFEE SUPERVISOR LIGHT FIXTURE SERVICER [address] [place], [place] [id number] 06/08/2024 8:30 AM CDT Office Visit [facility] [address] [place] [phone] Denise Woodson Ra, COFFEE SUPERVISOR LIGHT FIXTURE SERVICER [address] [facility] [place] [address] 06/26/2024 2:40 PM CDT Office Visit [facility] [address] [facility] [address] [place] [address] Danna Cardenas PA-C [address] [place], [place] [id number] documented as of this encounter Goals Goal [...] Mental Health weekly - PT, OT and EMAIL OPERATIONS MANAGER - PCP appointment 05/26/24 & 06/08/24 - Stroke Neurology Dr. Hoyos 04/14/24 #[phone] - Epilepsy Neurology Dr. Barcenas 05/05/24 follow up recommended in 2 months: 07/05/24 TBD. #[phone] - Vascular Dr. Zambrano 05/01/24 - follow up recommended in 6 months: 11/11/24 TBD #[phone]. - MTM if covered by insurance TBD [...] clinic with 08/04 after hours services available. Activated Sludge Operator will remain available as needed. documented as of this encounter Visit Diagnoses Not on filedocumented in this encounter Additional Health Concerns Active Problems Noted Date Diagnosed Date Increased risk of re-admission 02/18/2024 Assessment Noted Time PHQ-9 Depression Total Score: 5 03/17/20 9:45 AM CDT documented as of this encounter Care Teams Lace Pinner Relationship Specialty Start Date End Date Winston Villatoro OD [facility] [address] [place] [address] PCP - Ophthalmology Ophthalmology 02/11/13 Denise Woodson Ra, APRN LIGHT FIXTURE SERVICER [address] [place] [address] PCP - General Family Practice 09/21/20 Denise Woodson Ra, APRN LIGHT FIXTURE SERVICER [address] [place] [address] Assigned PCP 07/17/20 Usha Simon APRN LIGHT FIXTURE SERVICER [address] [facility] [id number] [address] Nurse Practitioner Neurological Surgery 01/24/24 Dangelo Salinas MD [address] [place] [address] Neurology 01/27/24 Anastasia Stearns, RN Lead Activated Sludge Operator 02/06/24 Germaine Lopez, W Community Health Worker Primary Care - CC 02/18/24 Lisa Zambrano MD [address] [place] [address] Assigned Heart and Vascular Provider 05/08/24 Raul Hoyos MD [address] [facility] [id number] [place], [place] [id number] Assigned Neuroscience Provider 05/08/24 documented as of this encounter
--- OUTSIDE RECORDS SUMMARY | 2024-05-17 01:23 | XMS_ITS | Encounter Summary ---
Author Organization [facility] Address [address] [place] [address] Care Team Providers Care Hospital Receptionist Name Role Phone ShaunaWinston OD Unavailable [phone] Denise Woodson Ra, APRN COMPUTATIONAL SCIENTIST Unavailable [phone] Denise Woodson Ra, APRN COMPUTATIONAL SCIENTIST Primary Care Provid er Usha Simon APRN COMPUTATIONAL SCIENTIST Unavailable [phone] Dangelo Salinas MD Unavailable Anastasia Stearns RN Unavailable [phone] Germaine Lopez CHW Unavailable [phone] Robin Zeepda MD Unavailable Lisa Zambrano MD Unavailable [phone] Raul Hoyos MD Unavailable Encounter Details Date Type Department Care Team (Late st Contact Info) Description 05/06/2024 MyC Medical Advice [facility] Epilepsy Care [address], [address] [place] [address] Rohit Barcenas MD [address] [place] [address] [address] [place] [address] Social History Tobacco Use Types [...] How often do you attend anglican or buddhism serv ices? Never 02/28/2024 Do [...] Answer Date Recorded PHQ-2 Score 2 05/05/2024 [facility] - Occupational Stress Questionnaire [...] 8:30 AM CDT Office Visit [facility] [address] [place] [address] Denise Woodson Ra, STORAGE BATTERY TESTER COMPUTATIONAL SCIENTIST [address] [place] [address] 06/08/2024 8:30 AM CDT Office Visit [facility] [address] [place] [phone] Denise Woodson , STORAGE BATTERY TESTER COMPUTATIONAL SCIENTIST [address] [place] [address] 06/26/2024 2:40 PM CDT Office Visit [facility] Heart [facility] [address] [facility] [address] [place] [phone] Danna Cardenas PA-C 6405 [place], [place] [address] documented as of this encounter Goals Goal [...] Mental Health weekly - PT, OT and HOUSING CASE MANAGER - PCP appointment 05/26/24 & 06/08/24 - Stroke Neurology Dr. Hoyos 04/14/24 #[phone] - Epilepsy Neurology Dr. Barcenas 05/05/24 follow up recommended in 2 months: 07/05/24 TBD. #[phone] - Vascular Dr. Zambrano 05/01/24 - follow up recommended in 6 months: 11/11/24 TBD #[phone]. - MTM if covered by insurance TBD [...] with 24/ after hours services available. Manager Investment Banking will remain available as needed. documented as of this encounter Visit Diagnoses Not on filedocumented in this encounter Additional Health Concerns Active Problems Noted Date Diagnosed Date Increased risk of re-admission 02/18/2024 Assessment Noted Time PHQ-9 Depression Total Score: 5 03/17/20 24 9:45 AM CDT documented as of this encounter Care Teams Hospital Receptionist Relationship Specialty Start Date End Date Winston Villatoro OD [facility] [address] [facility] [address] [place] [address] PCP - Ophthalmology Ophthalmology 02/11/13 Denise Woodson Ra, APRN COMPUTATIONAL SCIENTIST [address] [place] [address] PCP - General Family Practice 09/21/20 Denise Woodson Ra, APRN COMPUTATIONAL SCIENTIST [address] [place] [address] Assigned PCP 07/17/20 Usha Simon APRN COMPUTATIONAL SCIENTIST [address] [facility], [place] [address] Nurse Practitioner Neurological Surgery 01/24/24 Dangelo Salinas MD [address] [facility] [address] [place], [place] [id number] Neurology 01/27/24 Anastasia Stearns, RN Lead Manager Investment Banking 02/06/24 Germaine Lopez, W Community Health Worker Primary Care - CC 02/18/24 Robin Zepeda MD [address] [address] Assigned Neuroscience Provider 03/08/24 05/07/24 Lisa Zambrano MD [address] [place] [address] [place] [address] Assigned Heart and Vascular Provider 05/08/24 Raul Hoyos MD [address] [address] Assigned Neuroscience Provider 05/08/24 documented as of this encounter
--- OUTSIDE RECORDS SUMMARY | 2024-05-17 01:23 | XMS_ITS | Encounter Summary ---
Author Organization [facility] Address [address] [place] [address]. [place] [address] Care Team Providers Care Loan Review Analyst Name Role Phone Winston Villatoro OD Unavailable Denise Woodson Ra, APRN WATCH REPAIRER APPRENTICE Unavailable Denise Woodson Ra VETERINARIAN POULTRY WATCH REPAIRER APPRENTICE Primary Care Provid er Usha Simon APRN WATCH REPAIRER APPRENTICE Unavailable [phone] Dangelo Salinas MD Unavailable Anastasia Stearns RN Unavailable Germaine Lopez CHW Unavailable [phone] Lisa Zambrano MD Unavailable [phone] Raul Hoyos MD Unavailable [phone] Encounter Details Date Type Department Care Team (Late st Contact Info) Description 05/12/2024 [facility] [address] [place] [address] Denise Woodson Ra, APRN WATCH REPAIRER APPRENTICE [address] [place] [address] Social History Tobacco Use Types [...] Never 02/28/2024 How often do you attend scientologist or confucianism serv ices? Never 02/28/2024 Do you belong to any clubs o r organizations such as scientologist groups, unions, fraternal or athletic groups, or [...] PHQ-2 Score 2 05/05/2024 [facility] - Occupational Stress [...] in an overnight correction, or couch-surfing.) Yes 05/16/2024 Are you worried [...] Yes: In the Dr's in basket at lead front end developer Who is the form from? [employer] Where did/will the form come from? form was faxed in When is form/letter needed by: FIFI How would you like the form/letter returned: Patient Notified form requests are processed in 5-7 business days:No Could we send this information to you in [facility] or would you prefer to receive a phone call?: No preference Okay to leave a detailed message?: No at Other phone number: FAX: [phone] documented in this encounter Plan of Treatment Upcoming Encounters Date Type Department Care Team (Late st Contact Info) Description 05/26/2024 8:30 AM CDT [facility] [address] [place] [phone] Denise Woodson Ra, VETERINARIAN POULTRY WATCH REPAIRER APPRENTICE [address] [facility], [place] [address] 06/08/2024 8:30 AM CDT Office Visit [facility] [place] [address] [place] [phone] Denise Woodson Ra, VETERINARIAN POULTRY WATCH REPAIRER APPRENTICE [address] [facility] [place] [address] 06/26/2024 2:40 PM CDT Office Visit [facility] [address] [facility] [address] [place] [address] Danna Cardenas PA-C 6405 [place], [place] [address] documented as of this encounter Goals Goal [...] Mental Health weekly - PT, OT and COOKER MECHANIC - PCP appointment 05/26/24 & 06/08/24 - Stroke Neurology Dr. Hoyos 04/14/24 #[phone] - Epilepsy Neurology Dr. Barcenas 05/05/24 follow up recommended in 2 months: 07/05/24 TBD. #[phone] - Vascular Dr. Zambrano 05/01/24 - follow up recommended in 6 months: 11/11/24 TBD #[phone]. - MTM if covered by insurance TBD [...] clinic with 08/04 after hours services available. Production Boring Machine Operator will remain available as needed. documented as of this encounter Visit Diagnoses Not on filedocumented in this encounter Additional Health Concerns Active Problems Noted Date Diagnosed Date Increased risk of re-admission 02/18/2024 Assessment Noted Time PHQ-9 Depression Total Score: 5 03/17/20 24 9:45 AM CDT documented as of this encounter Care Teams Loan Review Analyst Relationship Specialty Start Date End Date Winston Villatoro OD [facility] 701 [facility] [address] [place] [address] PCP - Ophthalmology Ophthalmology 02/11/13 Denise Woodson Ra, APRN WATCH REPAIRER APPRENTICE [address] [place] [address] PCP - General Family Practice 09/21/20 Denise Woodson Ra, APRN WATCH REPAIRER APPRENTICE [address] [place] [address] Assigned PCP 07/17/20 Usha Simon APRN WATCH REPAIRER APPRENTICE 9 [facility] [place], [place] [address] Nurse Practitioner Neurological Surgery 01/24/24 Dangelo Salinas MD [address] [place] [address] Neurology 01/27/24 Anastasia Stearns, RN Lead Production Boring Machine Operator 02/06/24 Germaine Lopez, W Community Health Worker Primary Care - CC 02/18/24 Lisa Zambrano MD [address] [place] [address] Assigned Heart and Vascular Provider 05/08/24 Raul Hoyos MD 909 [facility] [place], [place] [address] Assigned Neuroscience Provider 05/08/24 documented as of this encounter
--- OUTSIDE RECORDS SUMMARY | 2024-05-17 01:23 | XMS_ITS | Encounter Summary ---
Author Organization [facility] Address [address] [place] [address]. [place] [address] Care Team Providers Care Steam Tunnel Feeder Name Role Phone Winston Villatoro OD Unavailable [phone] Denise Woodson Ra, APRN GAS REFRIGERATOR SERVICER Unavailable Denise Woodson Ra, APRN GAS REFRIGERATOR SERVICER Primary Care Provid er Usha Simon APRN GAS REFRIGERATOR SERVICER Unavailable [phone] Dangelo Salinas MD Unavailable Anastasia Stearns RN Unavailable [phone] Germaine Lopez CHW Unavailable Lisa Zambrano MD Unavailable [phone] Raul Hoyos MD Unavailable Reason for Visit * Reason Onset Date Comments Forms 05/12/2024 [employer] - Disability Insurance Encounter Details Date Type Department Care Team (Late st Contact Info) Description 05/12/2024 [facility] [address] [place] [address] Denise Woodson Ra, APRN GAS REFRIGERATOR SERVICER [address] [place] [address] Forms ([employer] - [...] How often do you attend hinduism or jewish serv ices? Never 02/28/2024 Do [...] Date Recorded PHQ-2 Score 2 05/05/2024 [facility] - Occupational Stress Questionnaire [...] in an overnight fdc, or couch-surfing.) Yes 05/16/2024 Are you worried [...] Telephone Encounter - Qing Copeland - 05/15/2024 1:24 PM CDT Faxed completed forms and sent to patient via [employer]. Qing Cardona Lead Toaster Operator MHealharpal Velasquez * Telephone Encounter - Qing Copeland - 05/15/2024 6:53 AM CDT Routing to provider as FYI. Qing Copeland Lead Toaster Operator ealharpal Velasquez * Telephone Encounter - Aliya Díaz RN - 05/14/2024 12:08 PM CDT TCB and sent MC message. Aliya Díaz RN on 05/14/2024 at 12:08 PM * Telephone Encounter - Denise Woodson Ra, [...] Who is the form from? [employer] Where did/will the form come from? form was sent via [employer] When is form/letter needed by: FIFI How would you like the form/letter returned: Director Of Global Marketing Patient Notified form requests are processed in 5-7 business days:Yes Could we send this information to you in [employer] or would you prefer to receive a phone call?: Patient would prefer a phone call Okay to leave a detailed message?: Yes at Cell number on file: Telephone Information: * Telephone Encounter - Qing Copeland - 05/12/2024 5:09 PM CDT Received form. Placed in provider's basket for review and signature. Qing Copeland Lead Toaster Operator MHealharpal Velasquez * Telephone Encounter - Qing Copeland - 05/12/2024 2:10 PM CDT Routing to provider as FYI. Will update when form is received. Qing Copeland Lead Toaster Operator MHealharpal Dossunt documented in this encounter Plan of Treatment Upcoming Encounters Date Type Department Care Team (Late st Contact Info) Description 05/26/2024 8:30 AM CDT [facility] [address] [place] [address] Denise Woodson Ra, PHOTO CHECKER GAS REFRIGERATOR SERVICER [address] [facility] [place] 07[address] 06/08/2024 8:30 AM CDT Office Visit [facility] [place] [address] [place] [phone] Denise Woodson Ra, PHOTO CHECKER GAS REFRIGERATOR SERVICER [address]99 [facility], [place] [address] 06/26/2024 2:40 PM CDT Office Visit [facility] [address] [facility] [address] [place] [phone] Danna Cardenas PA-C 6405 [place], [place] [address] documented as of this encounter Goals Goal [...] Mental Health weekly - PT, OT and JUSTICE COURT DEPUTY CLERK - PCP appointment 05/26/24 & 06/08/24 - Stroke Neurology Dr. Hoyos 04/14/24 #[phone] - Epilepsy Neurology Dr. Barcenas 05/05/24 follow up recommended in 2 months: 07/05/24 TBD. #[phone] - Vascular Dr. Zambrano 05/01/24 - follow up recommended in 6 months: 11/11/24 TBD #[phone]. - MTM if covered by insurance TBD [...] clinic with 08/04 after hours services available. Industrial Editor will remain available as needed. documented as of this encounter Visit Diagnoses Not on filedocumented in this encounter Additional Health Concerns Active Problems Noted Date Diagnosed Date Increased risk of re-admission 02/18/2024 Assessment Noted Time PHQ-9 Depression Total Score: 5 03/17/20 9:45 AM CDT documented as of this encounter Care Teams Steam Tunnel Feeder Relationship Specialty Start Date End Date Winston Villatoro OD [facility] 701 [facility] [address] [place] [address] PCP - Ophthalmology Ophthalmology 02/11/13 Denise Woodson Ra, APRN GAS REFRIGERATOR SERVICER [address] [place] [address] PCP - General Family Practice 09/21/20 Denise Woodson Ra, APRN GAS REFRIGERATOR SERVICER [address] [place] [address] Assigned PCP 07/17/20 Usha Simon APRN GAS REFRIGERATOR SERVICER 909 [facility] [id number] [place] [address] Nurse Practitioner Neurological Surgery 01/24/24 Dangelo Salinas MD [address] [place] [address] Neurology 01/27/24 Anastasia Stearns, RN Lead Industrial Editor 02/06/24 Germaine Lopez, [facility] Community Health Worker Primary Care - CC 02/18/24 Lisa Zambrano MD [address] [place] [id number] Assigned Heart and Vascular Provider 05/08/24 Raul Hoyos MD 909 [facility] [place], [place] [address] Assigned Neuroscience Provider 05/08/24 documented as of this encounter
--- OUTSIDE RECORDS SUMMARY | 2024-05-17 01:23 | XMS_ITS | Encounter Summary ---
Author Organization [facility] Address [address] [place] [address] Care Team Providers Care Plumbing Assembler Installer Name Role Phone ShaunaWinston OD Unavailable [phone] Denise Woodson Ra, APRN TUFTING MACHINE FIXER Unavailable Denise Woodson Ra, APRN TUFTING MACHINE FIXER Primary Care Provid er Usha Simon PHOTOTYPESETTING EQUIPMENT MONITOR TUFTING MACHINE FIXER Unavailable [phone] Dangelo Salinas MD Unavailable Anastasia Stearns RN Unavailable Germaine Lopez CHW Unavailable Lisa Zambrano MD Unavailable [phone] Raul Hoyos MD Unavailable Reason for Visit * Reason Comments Headache Encounter Details Date Type Department Care Team (Late st Contact Info) Description 05/12/2024 5:25 PM CDT - 05/12/2024 6:59 PM CDT [facility] Emergency Dept [address] [place] [address] Chinedu Moon MD [facility] [address] [place] [address] Discharge Disposition: Left Without Being Seen Social [...] How often do you attend protestant or mosque serv ices? Never 02/28/2024 Do you belong [...] PHQ-2 Score 2 05/05/2024 [facility] - Occupational Stress Questionnaire Answer Date [...] 30 tablet 02/14/2024 BREO ELLIPTA 200-25 MCG/INH InhalerIndications:Mod erate persistent asthma without complication INHALE 1 PUFF INTO THE LUNGS DAILY 3 each 1 02/22/2022 cetirizine (ZYRTEC) 10 MG tablet Take 10 mg by mouth at bedtime. levETIRAcetam (KEPPRA) 750 MG tabletIndications:Hist ory of seizure TAKE 1 TABLET BY MOUTH TWICE A DAY 56 tablet 04/01/2024 Lidocaine (LIDOCARE) 4 % PatchIndications:Fibro myalgia,Pain of right upper extremity Place 1 patch onto the skin every 24 hours To prevent lidocaine toxicity, patient should be patch free for 12 hrs daily. 01/22/2024 LORazepam (ATIVAN) 1 MG tabletIndications:Hist ory of seizure Take 1/2-1 tablet daily as needed for onset of dizziness. 10 tablet 03/17/2024 meclizine (ANTIVERT) 25 MG tablet Take 1 tablet (25 mg) by mouth 3 times daily as needed for dizziness 20 tablet 02/13/2024 methyl salicylate-menthol (ICY HOT) ointmentIndications:Fi bromyalgia,Pain of right upper extremity Apply topically every 6 hours as needed (pain) 01/22/2024 psyllium (METAMUCIL) 28.3 % packet Take 1 packet by mouth daily rosuvastatin (CRESTOR) 20 MG tabletIndications:Cere brovascular accident (CVA), unspecified mechanism (H) TAKE 1 TABLET (20 MG) BY MOUTH AT BEDTIME 90 tablet 03/06/2024 senna-docusate (SENOKOT-S/PERICOLACE) 8.6-50 MG tabletIndications:Othe r constipation Take 2 tablets by mouth 2 times daily as needed for constipation 01/22/2024 traZODone (DESYREL) 50 MG tabletIndications:Inso mnia, unspecified type Take 2 tablets (100 mg) by mouth At Bedtime 180 tablet 3 07/27/2021 OXcarbazepine (TRILEPTAL) 150 MG tabletIndications: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 (H) Take 1 tablet (150 mg) by mouth at bedtime 30 tablet 5 05/05/2024 magnesium oxide 200 MG TABS Ok to take magnesium supplement of your preference 01/24/2024 05/14/2024 vitamin B complex with vitamin C (VITAMIN B COMPLEX) tablet Take 1 tablet by mouth daily 05/14/2024 documented as of this encounter ED Notes [...] AM CDT Office Visit [facility] [address] [place] [address] Denise Woodson Ra, PHOTOTYPESETTING EQUIPMENT MONITOR TUFTING MACHINE FIXER [address] [place], [place] [address] 06/08/2024 8:30 AM CDT [facility] [address] [place] [phone] Denise Woodson Ra, PHOTOTYPESETTING EQUIPMENT MONITOR TUFTING MACHINE FIXER [address] [place], [place] [address] 06/26/2024 2:40 PM CDT Office Visit [facility] [address] [facility] [address] [place] [phone] Danna Cardenas PA-C 6405 [place], [place] [address] documented as of this encounter Goals Goal [...] Mental Health weekly - PT, OT and UNIFORM CAP OPERATOR - PCP appointment 05/26/24 & 06/08/24 - Stroke Neurology Dr. Hoyso 04/14/24 #[phone] - Epilepsy Neurology Dr. Barcenas 05/05/24 follow up recommended in 2 months: 07/05/24 TBD. #[phone] - Vascular Dr. Zambrano 05/01/24 - follow up recommended in 6 months: 11/11/24 TBD #[phone]. - MTM if covered by insurance TBD [...] clinic with 24/7 after hours services available. Fire Assistant will remain available as needed. documented as of this encounter Visit Diagnoses Not on filedocumented in this encounter Additional Health Concerns Active Problems Noted Date Diagnosed Date Increased risk of re-admission 02/18/2024 Assessment Noted Time PHQ-9 Depression Total Score: 5 03/17/20 24 9:45 AM CDT documented as of this encounter Care Teams Plumbing Assembler Installer Relationship Specialty Start Date End Date ShaunaWinston moralez OD [facility] 701 [facility] [address] [place] [address] PCP - Ophthalmology Ophthalmology 02/11/13 Denise Woodson Ra, APRN TUFTING MACHINE FIXER [address] [place] [address] PCP - General Family Practice 09/21/20 Denise Wodoson Ra, APRN TUFTING MACHINE FIXER [address] [place] [address] Assigned PCP 07/17/20 Usha Simon APRN TUFTING MACHINE FIXER 909 [facility]2121[place], [place] [address] Nurse Practitioner Neurological Surgery 01/24/24 Dangelo Salinas MD [address] [id number] Neurology 01/27/24 Anastasia Stearns, RN Lead Fire Assistant 02/06/24 Germaine Lopez, W Community Health Worker Primary Care - CC 02/18/24 Lisa Zambrano MD 6405 [facility] [address] [place] [address] [place] [address] Assigned Heart and Vascular Provider 05/08/24 Raul Hoyos MD 909 [facility]2121[place], [place] [address] Assigned Neuroscience Provider 05/08/24 documented as of this encounter
--- OUTSIDE RECORDS SUMMARY | 2024-05-17 01:23 | XMS_ITS | Encounter Summary ---
Author Organization [facility] Address [address] [place] [address] Care Team Providers Care Kiln Packer Name Role Phone ShaunaWinston moralez OD Unavailable [phone] Denise Woodson Ra, APRN JAVA PERFORMANCE ENGINEER Unavailable [phone] Denise Woodson Ra, APRN JAVA PERFORMANCE ENGINEER Primary Care Provid er Usha Simon APRN JAVA PERFORMANCE ENGINEER Unavailable [phone] Dangelo Salinas MD Unavailable Anastasia Stearns RN Unavailable [phone] Germaine Lopez CHW Unavailable [phone] Robin Zepeda MD Unavailable [phone] Encounter Details Date Type Department Care Team [...] Never 02/28/2024 How often do you attend quaker or caodaism serv ices? Never 02/28/2024 Do [...] Answer Date Recorded PHQ-2 Score 2 05/05/2024 [facility] ional [facility] [...] 8:30 AM CDT Office [facility] [address] [place] [phone] Denise Woodson Ra, SWIM INSTRUCTOR JAVA PERFORMANCE ENGINEER [address] [place], [place] [id number] 06/08/2024 8:30 AM CDT Office [facility] [address] [place] [phone] Denise Woodson Ra, SWIM INSTRUCTOR JAVA PERFORMANCE ENGINEER [address] [place] [address] 06/26/2024 2:40 PM CDT Office Visit [facility] [address] [facility] [address] [place] [address] Danna Cardenas PA-C 9105 [place], [place] [address] documented as of this encounter Goals Goal [...] Mental Health weekly - PT, OT and NEON TECHNICIAN - PCP appointment 05/26/24 & 06/08/24 - Stroke Neurology Dr. Hoyos 04/14/24 #[phone] - Epilepsy Neurology Dr. Barcenas 05/05/24 follow up recommended in 2 months: 07/05/24 TBD. #[phone] - Vascular Dr. Zambrano 05/01/24 - follow up recommended in 6 months: 11/11/24 TBD #[phone]. - MTM if covered by insurance TBD [...] clinic with 24/7 after hours services available. Boiler Operators Supervisor will remain available as needed. documented as of this encounter Visit Diagnoses Not on filedocumented in this encounter Additional Health Concerns Active Problems Noted Date Diagnosed Date Increased risk of re-admission 02/18/2024 Assessment Noted Time PHQ-9 Depression Total Score: 5 03/17/20 9:45 AM CDT documented as of this encounter Care Teams Kiln Packer Relationship Specialty Start Date End Date Winston Villatoro OD [facility] [place] [address] [place] [address] PCP - Ophthalmology Ophthalmology 02/11/13 Denise Woodson Ra, SWIM INSTRUCTOR JAVA PERFORMANCE ENGINEER [address] [place] [address] PCP - General Family Practice 09/21/20 Denise Woodson Ra, APRN JAVA PERFORMANCE ENGINEER [address] [place] [address] Assigned PCP 07/17/20 Usha Simon APRN JAVA PERFORMANCE ENGINEER [address] [place] [address]40521[place], [place] [address] Nurse Practitioner Neurological Surgery 01/24/24 Dangelo Salinas MD [address] [place] [address] Neurology 01/27/24 Anastasia Stearns, RN Lead Boiler Operators Supervisor 02/06/24 Germaine Lopez, W Community Health Worker Primary Care - CC 02/18/24 Robin Zepeda MD [address] [address] Assigned Neuroscience Provider 03/08/24 05/07/24 documented as of this encounter
--- OUTSIDE RECORDS SUMMARY | 2024-05-17 01:23 | XMS_ITS | Encounter Summary ---
Author Organization [facility] Address [address] [place] [address]. [place] [address] Care Team Providers Care Fryer Operator Name Role Phone ShaunaWinston OD Unavailable Denise Woodson Ra, APRN FORK LIFT TECHNICIAN Unavailable + [phone] Denise Woodson Ra CORDAGE SALES REPRESENTATIVE FORK LIFT TECHNICIAN Primary Care Provid er Usha Simon CORDAGE SALES REPRESENTATIVE FORK LIFT TECHNICIAN Unavailable [phone] Dangelo Salinas MD Unavailable Anastasia Stearns RN Unavailable Germaine Lopez CHW Unavailable Lisa Zambrano MD Unavailable [phone] Raul Hoyos MD Unavailable Reason for Visit * Reason Comments Headache Dizziness Balance/ Vestibular Neurologic Problem Encounter Details Date Type Department Care Team (Late st Contact Info) Description 05/10/2024 10:48 AM CDT - 05/11/2024 12:03 AM CDT Emergency [facility] Emergency Department [address] [place] [phone] Todd Osborn MD [address] [place] [address] Felicita Rae MD [address] [place] [address] Intractable headache, unspecified chronicity pattern, unspecified [...] Never 02/28/2024 How often do you attend uatsdin or confucianist serv ices? Never 02/28/2024 Do you belong to any clubs o r organizations such as uatsdin groups, unions, fraternal or athletic groups, or [...] Answer Date Recorded PHQ-2 Score 2 05/05/2024 [facility] [...] be sent through Care Everywhere. * Dizziness (Colombian) documented in this encounter Medications at Time [...] daily 05/14/2024 documented as of this encounter Consult Notes * Katerina, Delisa, - 05/10/2024 5:00 PM CDTAssociated Order(s): NEUROLOGY STROKE ADULT IP CONSULT Images from the original note were not included. [facility] Stroke Consult Note Reason for Consult: Suspected [...] 05/07. She went to the hospital in [place] at this point where she received an MRI that showed no acute intracranial abnormalities (was unable to locate these results in record, patient showed a result of imaging on her phone). The pain in the head is aburning and tingling that does not improve with tylenol or laying down. It felt better on Saturday morning in the [place] in the hospital, so she was discharged [...] taking: Reported on 05/05/2024 02/13/24 Dangelo Sylvester, DO methyl salicylate-menthol (ICY HOT) ointment Apply topically every 6 hours as needed (pain) 01/22/24 Delisa Manuel MD OXcarbazepine (TRILEPTAL) 150 MG tablet Take 1 tablet (150 mg) by mouth at bedtime 05/05/24 Rohit Barcenas MD psyllium (METAMUCIL) 28.3 % packet Take 1 packet by mouth daily Unknown, Entered By History rosuvastatin (CRESTOR) 20 MG tablet TAKE 1 TABLET (20 MG) BY MOUTH AT BEDTIME Patient not taking: Reported on 05/01/2024 03/06/24 Denise Woodson Ra, APRN FORK LIFT TECHNICIAN senna-docusate (SENOKOT-S/PERICOLACE) 8.6-50 MG tablet Take 2 [...] extinction on double simultaneous stimulation Coordination: normal vibxyn-qu-wyzb and kkoq-sk-wini bilaterally without dysmetria Station/Gait: deferred Stroke Scales [...] Also with difficulty ambulating. Was seen at [place] recently and had tele stroke consult. Discharged [...] Rate 66 BPM Atrial Rate 66 BPM TN Interval 162 ms QRS Duration 84 ms QT 378 ms QTc 396 ms P Portage 67 degrees R AXIS 84 degrees T Portage 34 degrees Interpretation ECG Sinus rhythm Possible Left atrial enlargement Borderline ECG Unconfirmed report - interpretation of this ECG is computer generated - see medical record for final interpretation Confirmed by - EMERGENCY ROOM, PHYSICIAN ([id number]), editor news MAILE STEINER ([id number]) on 05/10/2024 11:53:46 AM Glucose by meter Status: Normal Collection Time: 05/10/24 2:33 PM Result Value Ref Range GLUCOSE BY METER POCT 78 70 - 99 mg/dL CBC with Platelets & Differential Status: None Collection Time: 05/10/24 2:34 PM Narrative The following orders were created for panel order CBC with Platelets & Differential. Procedure Abnormality Status --------- ------ CBC with platelets and d...[[id number]] Final result Please view results for these [...] the vertex were obtained without intravenous contrast. Procurement Internship (topogram) image(s) also obtained and reviewed. FINDINGS: [...] of the upper aortic arch through the native of Ambrosio. This CT angiogram data was [...] 05/10/2024 10:56 AM CDT ED Provider Note [facility] History Chief Complaint Patient presents with [...] [facility] for left sided pulsatile tinnitus on [...] Patient reports that she did go to [facility] on night (05/07/2024) and had an CT [...] Past Surgical History: Procedure Laterality Date C FRONT COUNTER ATTENDANT PROCEDURE DATE: vag del. C FRONT COUNTER ATTENDANT PROCEDURE DATE: 2000 tubal ligation C FRONT COUNTER ATTENDANT PROCEDURE DATE: 1994 D&C CARDIAC SURGERY 06/2006 heart defect repair ESOPHAGOSCOPY, GASTROSCOPY, DUODENOSCOPY (EGD), COMBINED N/A 02/08/2021 Procedure: ESOPHAGOGASTRODUODENOSCOPY (EGD); Surgeon: Tuan Miller MD; Location: GI GI SURGERY 09/2020 gallbladder removed HC KNEE SCOPE,MED/LAT MENISECTOMY 08/04/13 LT HEART CATH, CLOSURE ATRIAL SEPTAL DEFECT 06/20/06 amplatzer septal occluder- serial #[id number] RW FRONT COUNTER ATTENDANT (ABSTRACTED) pneumonia several times SURGICAL PATHOLOGY EXAM 02/2012 excision of lipoma on chest wall [facility] VAGINAL HYSTERECTOMY 01/30/06 acetaminophen (TYLENOL) 500 MG [...] intact in b/l distal UEs and LEs. completion engineer II-XII intact. Negative Romberg. Very slow, but steady gait. No ataxia. Psychiatric: Mood and Affect: Mood normal. Behavior: Behavior normal. Thought Content: Thought content normal. Judgment: Judgment normal. ED Course, Procedures, & Data Procedures EKG Interpretation: Interpreted by Todd Osborn MD Time reviewed: 11:29 AM Symptoms at time of EKG: Dizziness Rhythm: normal sinus Rate: normal Portage: normal Ectopy: none Conduction: normal ST Segments/ [...] of the upper aortic arch through the native of Ambrosio. This CT angiogram data was [...] the vertex were obtained without intravenous contrast. Procurement Internship (topogram) image(s) also obtained and reviewed. FINDINGS: [...] Rate 66 BPM Atrial Rate 66 BPM TN Interval 162 ms QRS Duration 84 ms QT 378 ms QTc 396 ms P Portage 67 degrees R AXIS 84 degrees T Portage 34 degrees Interpretation ECG Sinus rhythm Possible Left atrial enlargement Borderline ECG Unconfirmed report - interpretation of this ECG is computer generated - see medical record for final interpretation Confirmed by - EMERGENCY ROOM, PHYSICIAN ([id number]), editor news MAILE STEINER ([id number]) on 05/10/2024 11:53:46 AM CBC with Platelets & Differential Status: None Narrative The following orders were created for panel order CBC with Platelets & Differential. Procedure Abnormality Status --------- ------ CBC with platelets and d...[[id number]] Final result Please view results for these [...] head and neck, obtain MRI images from [facility], and consult stroke service.Will also obtain laboratory [...] medical record was transcribed by ANDREA POOLE Boat Master, from a dictation done by Todd Osborn MD. I have reviewed the nursing notes. I have reviewed the findings, diagnosis, plan and need for follow up with the patient. New Prescriptions No medications on file Final diagnoses: None Joya Dillon, am serving as a trained medical supply technician to document services personally performed by Todd Osborn MD, MD, based on the provider's statements to me. Irena Dillon Nikola, MD, MD, was physically present and have reviewed and verified the accuracy of this note documented by Joya Cannon. Todd Osborn MD [facility] EMERGENCY DEPARTMENT 05/10/2024 Todd Osborn MD [...] 8:30 AM CDT [facility] [address] [place] [phone] Denise Woodson Ra, CORDAGE SALES REPRESENTATIVE FORK LIFT TECHNICIAN [address] [place], [place] [phone] 06/08/2024 8:30 AM CDT Office Visit [facility] [address] [place] [phone] Denise Woodson Ra, CORDAGE SALES REPRESENTATIVE FORK LIFT TECHNICIAN [address] [place], [place] [phone] 06/26/2024 2:40 PM CDT Office Visit [facility] [address] [facility] [address] [place] [phone] Danna Cardenas PA-C [address] [place] [address] documented as of this encounter Goals Goal [...] Health weekly - PT, OT and FINANCIAL FOUNDATIONS REPRESENTATIVE - PCP appointment 05/26/24 & 06/08/24 - Stroke Neurology Dr. Hoyos 04/14/24 #[phone] - Epilepsy Neurology Dr. Barcenas 05/05/24 follow up recommended in 2 months: 07/05/24 TBD. #[phone] - Vascular Dr. Zambrano 05/01/24 - follow up recommended in 6 months: 11/11/24 TBD #[phone]. - MTM if covered by insurance TBD [...] with 24/7 after hours services available. Consumer Services Advisor will remain available as needed. documented as [...] MR BRAIN W/O and W CONTRAST LOCATION: [facility] DATE: 05/10/2024 INDICATION: dizziness; Headache; Acute YANG [...] MR BRAIN W/O and W CONTRAST LOCATION: [facility] DATE: 05/10/2024 INDICATION: dizziness; Headache; Acute YANG [...] or abnormal enhancement visualized. Felicita Rae MD [facility] MRI ORDERABLES * (ABNORMAL) Keppra (Levetiracetam) Level (05/10/2024 6:49 PM CDT) Keppra (Levetiracetam ) Level 7.6(L) 10.0 - 40.0 ??g/mL 05/10/2024 7:32 PM CDT [facility] Blood BLOOD SPECIMEN / Unknown Venipuncture / Unknown 05/10/2024 6:49 PM CDT 05/10/2024 6:52 PM CDT Felicita Rae MD LAB - BLOOD ORDERA BLES [facility] [address] [facility], [address] [place] [address] * CTA Head Neck with Contrast [...] of the upper aortic arch through the native of Ambrosio. This CT angiogram data was [...] of the upper aortic arch through the native of Ambrosio. This CT angiogram data was [...] the vertex were obtained without intravenous contrast. Procurement Internship (topogram) image(s) also obtained and reviewed. FINDINGS: [...] the vertex were obtained without intravenous contrast. Procurement Internship (topogram) image(s) also obtained and reviewed. FINDINGS: [...] findings. MAE NIETO MD Todd Osborn MD [facility] CT ORDERABLES * CBC with platelets and [...] LAB - BLOOD ORDERABL ES [facility] [address] [facility], [address] [phone] * Troponin T, High Sensitivity (05/10/2024 2:34 PM CDT) Pathologist [facility] Troponin T, High Sensitivity <6 <=14 ng/L [...] - BLOOD ORDERABL ES Performing Organization Address [facility]/ZIP Co de Phone Number U [facility] [address] [facility], [address] * Partial thromboplastin time (05/10/2024 2:34 PM CDT) aPTT 25 22 - 38 Seconds 05/10/2024 2:54 PM CDT [facility] Blood STRUCTURE OF LEFT HAND / Unknown Venipuncture / Unknown 05/10/2024 2:34 PM CDT 05/10/2024 2:38 PM CDT Todd Osborn MD LAB - BLOOD ORDERABL ES Performing Organization Address [facility] Co de Phone Number [facility] [facility] [address] [facility], [address] * INR (05/10/2024 2:34 PM CDT) INR 0.92 0.85 - 1.15 05/10/2024 2:54 PM CDT [facility] Blood STRUCTURE OF LEFT HAND / Unknown Venipuncture / Unknown 05/10/2024 2:34 PM CDT 05/10/2024 2:38 PM CDT Todd Osborn MD LAB - BLOOD ORDERABL ES Performing Organization Address [facility]/ZIP Co de Phone Number [facility] [facility] [address] [facility], [address] * Basic metabolic panel (05/10/2024 2:34 [...] LAB - BLOOD ORDERABL ES [facility] [facility] [address] [facility], [address] [place] [phone] * Glucose by meter (05/10/2024 2:33 PM CDT) [facility] GLUCOSE BY METER POCT 78 70 - 99 mg/dL 05/10/2024 2:40 PM CDT [facility] POC Blood, Capillary BLOOD SPECIMEN / Unknown 05/10/2024 2:33 PM CDT 05/10/2024 2:40 PM CDT Todd Osborn MD LAB - BEAKER POCT [facility] POC [facility] [address] [facility], [address] [place] [address] * EKG 12-lead, tracing only (05/10/2024 11:25 AM CDT) Systolic Blood Pressure mmHg RADIOLOGY RESULTS Diastolic Blood Pressure mmHg RADIOLOGY RESULTS Ventricular Rate 66 BPM RAD IOLOGY RESULTS Atrial Rate 66 BPM RADIOLOG Y RESULTS TN Interval 162 ms RADIOLOG Y RESULTS QRS Duration 84 ms RADIOLO GY RESULTS QT 378 ms RADIOLOGY RESULTS QTc 396 ms RADIOLOGY RESULTS P Portage 67 degrees RADIOLOGY RESULTS R AXIS 84 degrees RADIOLOGY RESULTS T Portage 34 degrees RADIOLOGY RESULTS Interpretation ECG Sinus rhythm Possible Left atrial enlargement Borderline ECG Unconfirmed report - interpretation of this ECG is computer generated - see medical record for final interpretation Confirmed by - EMERGENCY ROOM, PHYSICIAN ([id number]), editor news MAILE STEINER ([id number]) on 05/10/2024 11:53:46 AM RADIOLOGY RESULTS 05/10/2024 [...] 4 gram 1638 ($Given - Provider: Sameer Bush RN) acetaminophen (TYLENOL) tablet 1,000 mg (COMPLETED) 1,000 [...] dose 1943 ($Given - Provider: Miah Tucker [facility] iopamidol (ISOVUE-370) solution 67 mL (COMPLETED) 67 mL, Intravenous, ONCE, On 05/10/24 at 1515, For 1 dose 1526 ($Given - Provider: Bindu Bliss) sodium chloride (PF) 0.9% PF flush 90 mL (COMPLETED) 90 mL, Intravenous, ONCE, On 05/10/24 at 1515, For 1 dose 1525 ($Given - Provider: Bindu S Peers) documented in this encounter Additional Health Concerns Active Problems Noted Date Diagnosed Date Increased risk of re-admission 02/18/2024 Assessment Noted Time PHQ-9 Depression Total Score: 5 03/17/20 24 9:45 AM CDT documented as of this encounter Care Teams Fryer Operator Relationship Specialty Start Date End Date Winston Villatoro OD [facility] [place] [address] [place] [address] PCP - Ophthalmology Ophthalmology 02/11/13 Denise Woodson Ra, CORDAGE SALES REPRESENTATIVE FORK LIFT TECHNICIAN [address] [place] [address] PCP - General Family Practice 09/21/20 Denise Woodson Ra CORDAGE SALES REPRESENTATIVE FORK LIFT TECHNICIAN [address] [place] [address] Assigned PCP 07/17/20 Usha Simon APRN FORK LIFT TECHNICIAN [address] [facility], [place] [address] Nurse Practitioner Neurological Surgery 01/24/24 Dangelo Salinas MD [address] [place], [place] [phone] Neurology 01/27/24 Anastasia Stearns, RN Lead Consumer Services Advisor 02/06/24 Germaine Lopez, W Community Health Worker Primary Care - CC 02/18/24 Lisa Zambrano MD [address] [place] [address] Assigned Heart and Vascular Provider 05/08/24 Raul Hoyos MD [address] [facility] [id number] [place] [address] Assigned Neuroscience Provider 05/08/24 documented as of this encounter
--- OUTSIDE RECORDS SUMMARY | 2024-05-17 01:23 | XMS_ITS | Encounter Summary ---
Author Organization [facility] Address [address] [place] [address] Care Team Providers Care Rewinder Operator Name Role Phone Winston Villatoro OD Unavailable [phone] Denise Woodson Ra, APRN JUNIOR ENGINEER Unavailable + [phone] Denise Woodson Ra, APRN JUNIOR ENGINEER Primary Care Provid er Usha Simon APRN JUNIOR ENGINEER Unavailable [phone] Dangelo Salinas MD Unavailable Anastasia Stearns RN Unavailable [phone] Germaine Lopez CHW Unavailable Lisa Zambrano MD Unavailable [phone] Raul Hoyos MD Unavailable Encounter Details Date Type Department Care Team (Late st Contact Info) Description 05/08/2024 [facility] [address] 3[address] [place] [address] Robin Zepeda MD [address] [place], [place] [id number] [address] Social History Tobacco Use Types [...] How often do you attend judaism or bahai serv ices? Never 02/28/2024 Do [...] Answer Date Recorded PHQ-2 Score 2 05/05/2024 [facility] [...] you got money to buy more? No 05/15/2024 Within the past 12 months, d id the food you bought just not last and you didn? t have money to get more? No 05/15/2024 Housing Stability Answer Date Recorded Do you have housing? (Housin g is defined as stable permanent housing and does not include staying ouside in a car, in a tent, in an abandoned building, in an overnight detention, or couch-surfing.) Yes 05/15/2024 Are you worried about losing your housing? No 05/15/2024 Financial Resource Strain Answer Date R ecorded Within the past 12 months, h ave you or your family members you live with been unable to get utilities (heat, electricity) when it was really needed? No 05/15/2024 Transportation Needs Answer Date Record ed Within the past 12 months, h as lack of transportation kept you from medical appointments, getting your medicines, non-medical meetings or appointments, work, or from getting things that you need? No 05/15/2024 Interpersonal Safety Answer Date Record ed Do [...] Office Visit [facility] [address] [place] [phone] Denise Woodson Ra, BARRERA JUNIOR ENGINEER [address] [facility] [place] [address] 06/08/2024 8:30 AM CDT [facility] [address] [place] [phone] Denise Woodson Ra, BARRERA JUNIOR ENGINEER [address] [facility] [place] [address] 06/26/2024 2:40 PM CDT Office Visit [facility] [place] [address] [facility] [address] [place] [phone] Danna Cardenas PA-C [address] [facility] [place] [address] documented as of this encounter Goals Goal [...] Mental Health weekly - PT, OT and SEISMIC INTERPRETER - PCP appointment 05/26/24 & 06/08/24 - Stroke Neurology Dr. Hoyos 04/14/24 #[phone] - Epilepsy Neurology Dr. Barcenas 05/05/24 follow up recommended in 2 months: 07/05/24 TBD. #[phone] - Vascular Dr. Zambrano 05/01/24 - follow up recommended in 6 months: 11/11/24 TBD #[phone]. - MTM if covered by insurance TBD [...] clinic with 24/7 after hours services available. [employer] will remain available as needed. documented as of this encounter Visit Diagnoses Not on filedocumented in this encounter Additional Health Concerns Active Problems Noted Date Diagnosed Date Increased risk of re-admission 02/18/2024 Assessment Noted Time PHQ-9 Depression Total Score: 5 03/17/20 9:45 AM CDT documented as of this encounter Care Teams Rewinder Operator Relationship Specialty Start Date End Date Winston Villatoro OD [facility] [place] [address] [place] [address] PCP - Ophthalmology Ophthalmology 02/11/13 Denise Woodson Ra, APRN JUNIOR ENGINEER [address] [place] [address] PCP - General Family Practice 09/21/20 Denise Woodson Ra, APRN JUNIOR ENGINEER [address] [place] [address] Assigned PCP 07/17/20 Usha Simon APRN JUNIOR ENGINEER [address] [id number] Nurse Practitioner Neurological Surgery 01/24/24 Dangelo Salinas MD [address] [place], [place] [phone] Neurology 01/27/24 Anastasia Stearns, RN Lead [employer] 02/06/24 Germaine Lopez, W Community Health Worker Primary Care - CC 02/18/24 Lisa Zambrano MD [address] [place] [address] Assigned Heart and Vascular Provider 05/08/24 Raul Hoyos MD [address] [id number] Assigned Neuroscience Provider 05/08/24 documented as of this encounter
--- OUTSIDE RECORDS SUMMARY | 2024-05-17 01:23 | XMS_ITS | Encounter Summary ---
Author Organization [place] Address [address] [place] [address] Care Team Providers Care Rn Placement Name Role Phone Winston Villatoro OD Unavailable [phone] Denise Woodson Ra, APRN BAND ATTACHER Unavailable [phone] Denise Woodson Ra NAVAL ARCHITECT SPECIALIST BAND ATTACHER Primary Care Provid er Usha Simon APRN BAND ATTACHER Unavailable Dangelo Salinas MD Unavailable Anastasia Stearns RN Unavailable [phone] Germaine Lopez CHW Unavailable [phone] Robin Zepeda MD Unavailable Reason for Visit * Reason Comments New Patient * Consultation (Urgent: 3-5 Days) - Pending Review Specialty Diagnoses / Procedures Referred By Nila shah Referred To Contact Diagnoses Fibromuscular dysplasia (H24) Cerebrovascular accident (CVA), unspecified mechanism (H) Denise Woodson Ra, NAVAL ARCHITECT SPECIALIST BAND ATTACHER [address] [place] [address] Referral ID Status Reason Start Date Expiration Date V isits Requested Visits Authorized [id number] Pending Review 02/06/2024 02/05/2025 1 1 Encounter Details Date Type Department Care Team ([facility] st Contact Info) Description 05/05/2024 2:30 PM CDT Office Visit Se [facility] [address], [address] [place] [phone] Rohit Barcenas MD [address] [facility] [address] [place], [place] [address] 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 Never 02/28/2024 Do [...] Answer Date Recorded PHQ-2 Score 2 05/05/2024 [facility] [place] of Occupat ional Health - Occupational Stress [...] Barcenas MD - 05/05/2024 2:30 PM CDT [facility]: NEW PATIENT EVALUATION Service Date: [...] syntax and comprehension. Rapid alternating movements, and fwpmey-zhwd-iaqfdt and heel-mast maneuvers were performed normally bilaterally. [...] denied having suicidal ideation recently. I reviewed [place] regulations on seizures and driving with the patient. She appeared to clearly understand that she is prohibited from operating a motor vehicle within 3 months following any seizure or other episode with sudden unconsciousness or inability to sit up, and that she is required to report any future such seizure to the [facility] within 30 days after the [...] AM CDT Office Visit [facility] [address] [place] [address] Denise Woodson Ra, NAVAL ARCHITECT SPECIALIST BAND ATTACHER [address] [place] [address] 06/08/2024 8:30 AM CDT Office [facility] [address] [place] [address] Denise Woodson Ra, BARRERA BAND ATTACHER [address] [place], [place] [address] 06/26/2024 2:40 PM CDT Office Visit [facility] Heart [facility] [address] [facility] [address] [place] [phone] Danna Cardenas PA-C 6405 [place], [place] [address] documented as of this encounter Goals Goal Patient Goal Type Associated Problems Recent Progress Patient-Stated? Author I would like additional resources and support to manage my health and prevent future avoidable ED visits/hospital admissions Care Plan Increased risk of re-admission 10%( 3:13 PM CDT) Anastasia Tlaamantes, RN Note: Barriers: diagnosis of multiple, chronic, complex medical conditions, provider availability - wait time to complete appointments, etc. Strengths: motivated, engaged in care coordination Patient expressed understanding of goal: yes Action steps to achieve this goal: 1. I will follow up with my providers as scheduled/recommended - Mental Health weekly - PT, OT and VARNISHER APPRENTICE - PCP appointment 05/26/24 & 06/08/24 - Stroke Neurology Dr. Hoyos 04/14/24 #[phone] - Epilepsy Neurology Dr. Barcenas 05/05/24 follow up recommended in 2 months: 07/05/24 TBD. #[phone] - Vascular Dr. Zambrano 05/01/24 - follow up recommended in 6 months: 11/11/24 TBD #[phone]. - MTM if covered by insurance TBD [...] clinic with 24/ after hours services available. Devulcanizer Charger will remain available as needed. documented as [...] as of this encounter Care Teams Rn Placement Relationship Specialty Start Date End Date Winston Villatoro OD [facility] [place] [address] [place] [address] PCP - Ophthalmology Ophthalmology 02/11/13 Denise Woodson Ra, APRN BAND ATTACHER [address] [place] [address] PCP - General Family Practice 09/21/20 Denise Woodson Ra, APRN BAND ATTACHER [address] [place] [address] Assigned PCP 07/17/20 Usha Simon APRN BAND ATTACHER [address] [id number] Nurse Practitioner Neurological Surgery 01/24/24 Dangelo Salinas MD [address] [place], [place] [id number] Neurology 01/27/24 Anastasia Stearns, RN Lead Devulcanizer Charger 02/06/24 Germaine Lopez, W Community Health Worker Primary Care - CC 02/18/24 Robin Zepeda MD [address] [id number] Assigned Neuroscience Provider 03/08/24 05/07/24 documented as of this encounter
--- OUTSIDE RECORDS SUMMARY | 2024-05-17 01:23 | XMS_ITS | Encounter Summary ---
Author Organization [place] Address [address] [place] [address]. [place] [address] Care Team Providers Care Bander And Cellophaner Machine Name Role Phone Winston Villatoro OD Unavailable [phone] Denise Woodson Ra, APRN INDUSTRIAL HYGIENE ENGINEER Unavailable Denise Woodson Ra SOFTWARE PUBLISHER INDUSTRIAL HYGIENE ENGINEER Primary Care Provid er Usha Simon APRN INDUSTRIAL HYGIENE ENGINEER Unavailable [phone] Dangelo Salinas MD Unavailable Anastasia Stearns RN Unavailable Germaine Lopez CHW Unavailable [phone] Lisa Zambrano MD Unavailable [phone] Raul Hoyos MD Unavailable [phone] Encounter Details Date Type Department Care Team (Late st Contact Info) Description 05/11/2024 [facility] Medical Advice [facility] [address] [place] [address] Denise Woodson Ra, APRN INDUSTRIAL HYGIENE ENGINEER [address] [place] [address] Social History Tobacco Use Types [...] How often do you attend pentecostal or pentecostal serv ices? Never 02/28/2024 Do [...] Answer Date Recorded PHQ-2 Score 2 05/05/2024 [facility] of Occupat ional Health - Occupational Stress [...] in an overnight mcc, or couch-surfing.) Yes 05/15/2024 Are you worried [...] to provider as VEDA. Qing Copeland Lead Body Recall Instructor [facility] documented in this encounter Plan of Treatment Upcoming Encounters Date Type Department Care Team (Late st Contact Info) Description 05/26/2024 8:30 AM CDT [facility] [address] [place] [phone] Denise Woodson Ra, SOFTWARE PUBLISHER INDUSTRIAL HYGIENE ENGINEER [address] [place] [address] 06/08/2024 8:30 AM CDT Office Visit [facility] [address] [place] [phone] Denise Woodson Ra, SOFTWARE PUBLISHER INDUSTRIAL HYGIENE ENGINEER [address] [place] [address] 06/26/2024 2:40 PM CDT Office Visit [facility] [address] [facility] [address] [place] [address] Danna Cardenas PA-C 6[address] [place], [place] [address] documented as of this encounter Goals Goal [...] Mental Health weekly - PT, OT and DONOR CENTER TECHNICIAN - PCP appointment 05/26/24 & 06/08/24 - Stroke Neurology Dr. Hoyos 04/14/24 #[phone] - Epilepsy Neurology Dr. Barcenas 05/05/24 follow up recommended in 2 months: 07/05/24 TBD. #[phone] - Vascular Dr. Zambrano 05/01/24 - follow up recommended in 6 months: 11/11/24 TBD #[phone]. - MTM if covered by insurance TBD [...] clinic with 08/04 after hours services available. Coal Hiker will remain available as needed. documented as of this encounter Visit Diagnoses Not on filedocumented in this encounter Additional Health Concerns Active Problems Noted Date Diagnosed Date Increased risk of re-admission 02/18/2024 Assessment Noted Time PHQ-9 Depression Total Score: 5 03/17/20 9:45 AM CDT documented as of this encounter Care Teams Bander And Cellophaner Machine Relationship Specialty Start Date End Date Winston Villatoro OD [facility] [address] [place] [address] PCP - Ophthalmology Ophthalmology 02/11/13 Denise Woodson Ra, APRN INDUSTRIAL HYGIENE ENGINEER [address] [place] [address] PCP - General Family Practice 09/21/20 Densie Woodson Ra, APRN INDUSTRIAL HYGIENE ENGINEER [address] [address] [facility] [address] Assigned PCP 07/17/20 Usha Simon APRN INDUSTRIAL HYGIENE ENGINEER 9 [facility] [id number] [place] [address] Nurse Practitioner Neurological Surgery 01/24/24 Dangelo Salinas MD [address] [place] [address] Neurology 01/27/24 Anastasia Stearns, RN Lead Coal Hiker 02/06/24 Germaine Lopez, [facility] Community Health Worker Primary Care - CC 02/18/24 Lisa Zambrano MD [address] [place] [address] Assigned Heart and Vascular Provider 05/08/24 Raul Hoyos MD [address] [facility] [id number] [place], [place] [address] Assigned Neuroscience Provider 05/08/24 documented as of this encounter
--- OUTSIDE RECORDS SUMMARY | 2024-05-17 01:23 | XMS_ITS | Encounter Summary ---
Author Organization [place] Address [address] [place] [address] Care Team Providers Care First Line Production Supervisor Name Role Phone ShaunaWinston OD Unavailable [phone] Denise Woodson Ra, APRN SPECIMEN BOSS Unavailable + [phone] Denise Woodson Ra, APRN SPECIMEN BOSS Primary Care Provid er Usha Simon APRN SPECIMEN BOSS Unavailable [phone] Dangelo Salinas MD Unavailable Anastasia Stearns RN Unavailable [phone] Germaine Lopez CHW Unavailable Lisa Zambrano MD Unavailable [phone] Raul Hoyos MD Unavailable Reason for Visit * Reason Onset Date Comments Symptoms 05/12/2024 Stroke symptoms per pt Encounter Details Date Type Department Care Team (Late st Contact Info) Description 05/12/2024 Telephone [facility] [place] [address] [place] [address] 3rd [place] [address] Raul Hoyos MD [address] [place], [place] [address] [place] [address] Symptoms (Stroke symptoms per pt [...] How often do you attend scientology or voodoo serv ices? Never 02/28/2024 Do [...] Score 2 05/05/2024 [facility] - Occupational Stress Questionnaire Answer Date [...] in an overnight penitentiary, or couch-surfing.) Yes 05/16/2024 Are you worried [...] states she was at the ED at [facility] on Saturday05/08/24 and they also did an [...] and will plan on appt with Dr. Hoyos next Saturday at 9:30am. Patient is aware. RN to contact patient with further recommendations. Stacey Kelley RN 05/12/2024 10:57 AM * Telephone Encounter - Daisy Day - 05/12/2024 10:18 AM CDT [facility] Call Center Phone Message May a [...] 8:30 AM CDT [facility] [address] [place] [phone] Denise Woodson Ra, PACKAGE PICK UP SPECIMEN BOSS [address] [facility], [place] [id number] 06/08/2024 8:30 AM CDT Office [facility] [address] [place] [phone] Denise Woodson Ra, PACKAGE PICK UP SPECIMEN BOSS [address] [facility], [place] [id number] 06/26/2024 2:40 PM CDT Office Visit [facility] Heart [facility] [address] [facility] [address] [place] [address] Danna Cardenas PA-C 6405 [place], [place] [address] documented as of this encounter Goals Goal [...] Mental Health weekly - PT, OT and FIRST AID TEACHER - PCP appointment 05/26/24 & 06/08/24 - Stroke Neurology Dr. Hoyos 04/14/24 #[phone] - Epilepsy Neurology Dr. Barcenas 05/05/24 follow up recommended in 2 months: 07/05/24 TBD. #[phone] - Vascular Dr. Zambrano 05/01/24 - follow up recommended in 6 months: 11/11/24 TBD #[phone]. - MTM if covered by insurance TBD [...] clinic with / after hours services available. Sheet Rock Installation Helper will remain available as needed. documented as of this encounter Visit Diagnoses Not on filedocumented in this encounter Additional Health Concerns Active Problems Noted Date Diagnosed Date Increased risk of re-admission 02/18/2024 Assessment Noted Time PHQ-9 Depression Total Score: 5 03/17/20 9:45 AM CDT documented as of this encounter Care Teams First Line Production Supervisor Relationship Specialty Start Date End Date Winston Villatoro OD [facility] [address] [facility] [address] [place] [address] PCP - Ophthalmology Ophthalmology 02/11/13 Denise Woodson Ra, APRN SPECIMEN BOSS [address] [place] [address] PCP - General Family Practice 09/21/20 Denise Woodson Ra, APRN SPECIMEN BOSS [address] [place] [address] Assigned PCP 07/17/20 Usha Simon APRN SPECIMEN BOSS 909 [facility] [id number] [place] [address] Nurse Practitioner Neurological Surgery 01/24/24 Dangelo Salinas MD [address] [place] [address] Neurology 01/27/24 Anastasia Stearns, RN Lead Sheet Rock Installation Helper 02/06/24 Germaine Lopez, [facility] Community Health Worker Primary Care - CC 02/18/24 Lisa Zambrano MD [address] [place] [address] Assigned Heart and Vascular Provider 05/08/24 Raul Hoyos MD 909 [facility]121CJ [place], [place] [address] Assigned Neuroscience Provider 05/08/24 documented as of this encounter
--- OUTSIDE RECORDS SUMMARY | 2024-05-17 01:23 | XMS_ITS | Encounter Summary ---
Author Organization [place] Address [address] [place] [address]. [place] [address] Care Team Providers Care Law Librarian Name Role Phone Winston Villatoro OD Unavailable [phone] Denise Woodson Ra, APRN CHRONIC CARE NURSE Unavailable Denise Woodson Ra PARIMUTUEL CASHIER CHRONIC CARE NURSE Primary Care Provid er Usha Simon APRN CHRONIC CARE NURSE Unavailable [phone] Dangelo Salinas MD Unavailable Anastasia Stearns RN Unavailable [phone] Germaine Lopez CHW Unavailable Lisa Zambrano MD Unavailable [phone] Raul Hoyos MD Unavailable Encounter Details Date Type Department Care Team (Late st Contact Info) Description 05/12/2024 [facility] [address] [place] [address] Denise Woodson Ra, APRN CHRONIC CARE NURSE [address] [place] [address] Social History Tobacco Use Types [...] Never 02/28/2024 How often do you attend confucianism or congregational serv ices? Never 02/28/2024 Do you belong to any clubs o r organizations such as confucianism groups, unions, fraternal or athletic groups, or [...] Answer Date Recorded PHQ-2 Score 2 05/05/2024 [facility] - Occupational [...] 05/12/2024 9:55 AM CDT Pt calls. See jeffreyt of 05/11/24 also. She had a stroke in December. She was doing recovery. She was doing a gradual return to work. he was having severe h/a, dizziness and she could not walk right. She went to the ER in [place]. They did imaging and thought it was a migraine. Over the weekend her symptoms got worse. She went to [place] to the ER. Her headache went away. This morning her vision is blurry. She still feels dizzy and her walking oirana little off. Last night she felt a [...] 05/26/2024 8:30 AM CDT Office Visit [facility] [address] [place] [address] Denise Woodson Ra, APRN CHRONIC CARE NURSE [address] [place] [address] 06/08/2024 8:30 AM CDT [facility] [address] [place] [address] Denise Woodson Ra, BARRERA CHRONIC CARE NURSE [address] [place] [address] 06/26/2024 2:40 PM CDT Office Visit [facility] [address] [employer] [address] [place] [address] Danna Cardenas PA-C [address]85 [place] [address] documented as of this encounter Goals Goal [...] Mental Health weekly - PT, OT and SCHOOL BUS DISPATCHER - PCP appointment 05/26/24 & 06/08/24 - Stroke Neurology Dr. Hoyos 04/14/24 #[phone] - Epilepsy Neurology Dr. Barcenas 05/05/24 follow up recommended in 2 months: 07/05/24 TBD. #[phone] - Vascular Dr. Zambrano 05/01/24 - follow up recommended in 6 months: 11/11/24 TBD #[phone]. - MTM if covered by insurance TBD [...] clinic with 24/7 after hours services available. Hotel Room Attendant will remain available as needed. documented as of this encounter Visit Diagnoses Not on filedocumented in this encounter Additional Health Concerns Active Problems Noted Date Diagnosed Date Increased risk of re-admission 02/18/2024 Assessment Noted Time PHQ-9 Depression Total Score: 5 03/17/20 9:45 AM CDT documented as of this encounter Care Teams Law Librarian Relationship Specialty Start Date End Date Winston Villatoro OD [facility] [address] [facility] [address] [place] [address] PCP - Ophthalmology Ophthalmology 02/11/13 Denise Woodson Ra PARIMUTUEL CASHIER CHRONIC CARE NURSE [address] [place] [address] PCP - General Family Practice 09/21/20 Denise Woodson Ra PARIMUTUEL CASHIER CHRONIC CARE NURSE [address] [place] [address] Assigned PCP 07/17/20 Usha Simon APRN CHRONIC CARE NURSE [address] [id number] Nurse Practitioner Neurological Surgery 01/24/24 Dangelo Salinas MD [address] [place], [place] [id number] Neurology 01/27/24 Anastasia Stearns, RN Lead Hotel Room Attendant 02/06/24 Germaine Lopez, W Community Health Worker Primary Care - CC 02/18/24 Lisa Zambrano MD [address] [place] [address] Assigned Heart and Vascular Provider 05/08/24 Raul Hoyos MD [address] [id number] Assigned Neuroscience Provider 05/08/24 documented as of this encounter
--- OUTSIDE RECORDS SUMMARY | 2024-05-17 01:23 | XMS_ITS | Encounter Summary ---
Author Organization [place] Address [address] [place] [address] Care Team Providers Care Polystyrene Molding Machine Tender Name Role Phone ShaunaWinston OD Unavailable [phone] Denise Woodson Ra, APRN MUSIC EDUCATION DIRECTOR Unavailable + [phone] Denise Woodson Ra, APRN MUSIC EDUCATION DIRECTOR Primary Care Provid er Usha Simon APRN MUSIC EDUCATION DIRECTOR Unavailable [phone] Dangelo Salinas MD Unavailable Anastasia Stearns RN Unavailable [phone] Germaine Lopez CHW Unavailable [phone] Lisa Zambrano MD Unavailable + [phone] Raul Hoyos MD Unavailable Encounter Details Date [...] How often do you attend latter-day or latter day serv ices? Never 02/28/2024 [...] Answer Date Recorded PHQ-2 Score 2 05/05/2024 [facility] [place] of Occupat ional Health - Occupational Stress [...] AM CDT Office Visit [facility] [address] [place] [phone] Denise Woodson Ra, BARRERA MUSIC EDUCATION DIRECTOR [address] [place] [address] 06/08/2024 8:30 AM CDT Office Visit [facility] [address] [place] [address] Denise Woodson Ra, BARRERA MUSIC EDUCATION DIRECTOR [address] [place] [address] 06/26/2024 2:40 PM CDT Office Visit [facility] [address] [facility] [address] [place] [address] Danna Cardenas PA-C 6405 [place], [place] [address] documented as of this encounter Goals Goal [...] Mental Health weekly - PT, OT and ROD MILL TENDER - PCP appointment 05/26/24 & 06/08/24 - Stroke Neurology Dr. Hoyos 04/14/24 #[phone] - Epilepsy Neurology Dr. Barcenas 05/05/24 follow up recommended in 2 months: 07/05/24 TBD. #[phone] - Vascular Dr. Zambrano 05/01/24 - follow up recommended in 6 months: 11/11/24 TBD #[phone]. - MTM if covered by insurance TBD [...] clinic with 24/7 after hours services available. Ball Fringe Machine Operator will remain available as needed. documented as of this encounter Visit Diagnoses Not on filedocumented in this encounter Additional Health Concerns Active Problems Noted Date Diagnosed Date Increased risk of re-admission 02/18/2024 Assessment Noted Time PHQ-9 Depression Total Score: 5 03/17/20 9:45 AM CDT documented as of this encounter Care Teams Polystyrene Molding Machine Tender Relationship Specialty Start Date End Date Winston Villatoro OD [facility] [place] [address] [place] [address] PCP - Ophthalmology Ophthalmology 02/11/13 Denise Woodson Ra, INBOUND CALL CENTER AGENT MUSIC EDUCATION DIRECTOR [address] [place] [address] PCP - General Family Practice 09/21/20 Denise Woodson Ra, APRN MUSIC EDUCATION DIRECTOR [address] [place] [address] Assigned PCP 07/17/20 Usha Simon APRN MUSIC EDUCATION DIRECTOR [address] [facility], [place] [address] Nurse Practitioner Neurological Surgery 01/24/24 Dangelo Salinas MD [address] [place] [address] Neurology 01/27/24 Anastasia Stearns, RN Lead Ball Fringe Machine Operator 02/06/24 Germaine Lopez, W Community Health Worker Primary Care - CC 02/18/24 Lisa Zambrano MD [address] [place] [address] Assigned Heart and Vascular Provider 05/08/24 Raul Hoyos MD [address] [facility]121[place], [place] [address] Assigned Neuroscience Provider 05/08/24 documented as of this encounter
--- OUTSIDE RECORDS SUMMARY | 2024-05-17 01:23 | XMS_ITS | Encounter Summary ---
Author Organization [place] Address [address] [place] [address] Care Team Providers Care Chemical Handler Name Role Phone ShaunaWinston OD Unavailable [phone] Denise Woodson Ra, APRN NURSING UNIT CLERK Unavailable [phone] Denise Woodson Ra, APRN NURSING UNIT CLERK Primary Care Provid er Usha Simon APRN NURSING UNIT CLERK Unavailable [phone] Dangelo Salinas MD Unavailable Anastasia Stearns RN Unavailable [phone] Germaine Lopez CHW Unavailable [phone] Robin Zepeda MD Unavailable [phone] Encounter Details Date Type Department Care Team [...] often do you attend oriental orthodox or advent serv ices? Never 02/28/2024 Do [...] Answer Date Recorded PHQ-2 Score 2 05/05/2024 [facility] Occupat ional Health - Occupational [...] Description 05/26/2024 8:30 AM CDT Office Visit [facility] [address] [place] [address] Denise Woodson Ra, RAILWAY TRACK WORKER NURSING UNIT CLERK [address] [place], [place] [address] 06/08/2024 8:30 AM CDT Office Visit [facility] [address] [place] [address] Denise Woodson Ra, RAILWAY TRACK WORKER NURSING UNIT CLERK [address] [place] [address] 06/26/2024 2:40 PM CDT Office Visit [facility] Heart [facility] [address] [facility] [address] [place] [address] Danna Cardenas PA-C 5175 [place], [place] [address] documented as of this encounter Goals Goal [...] Mental Health weekly - PT, OT and OFFICIAL COURT INTERPRETER - PCP appointment 05/26/24 & 06/08/24 - Stroke Neurology Dr. Hoyos 04/14/24 #[phone] - Epilepsy Neurology Dr. Barcenas 05/05/24 follow up recommended in 2 months: 07/05/24 TBD. #[phone] - Vascular Dr. Zambrano 05/01/24 - follow up recommended in 6 months: 11/11/24 TBD #[phone]. - MTM if covered by insurance TBD [...] clinic with 24/7 after hours services available. Rail Bonder will remain available as needed. documented as of this encounter Visit Diagnoses Not on filedocumented in this encounter Additional Health Concerns Active Problems Noted Date Diagnosed Date Increased risk of re-admission 02/18/2024 Assessment Noted Time PHQ-9 Depression Total Score: 5 03/17/20 9:45 AM CDT documented as of this encounter Care Teams Chemical Handler Relationship Specialty Start Date End Date Winston Villatoro OD [facility] [place] [address] [place] [address] PCP - Ophthalmology Ophthalmology 02/11/13 Denise Woodson Ra, RAILWAY TRACK WORKER NURSING UNIT CLERK [address] [place] [address] PCP - General Family Practice 09/21/20 Denise Woodson Ra, APRN NURSING UNIT CLERK [address] [place] [address] Assigned PCP 07/17/20 Usha Simon APRN NURSING UNIT CLERK [address]54[address] [address] Nurse Practitioner Neurological Surgery 01/24/24 Dangelo Salinas MD [address] [place] [address] Neurology 01/27/24 Anastasia Stearns, RN Lead Rail Bonder 02/06/24 Germaine Lopez, W Community Health Worker Primary Care - CC 02/18/24 Robin Zepeda MD [address] [address] Assigned Neuroscience Provider 03/08/24 05/07/24 documented as of this encounter
--- OUTSIDE RECORDS SUMMARY | 2024-05-17 01:24 | XMS_ITS | Encounter Summary ---
Author Organization [place] Address [address] [place] [address] Care Team Providers Care Welding Operator Name Role Phone ShaunaWinston moralez OD Unavailable [phone] Denise Woodson Ra, APRN DOCUMENT REVIEWER Unavailable [phone] Denise Woodson Ra, APRN DOCUMENT REVIEWER Primary Care Provid er Usha Simon APRN DOCUMENT REVIEWER Unavailable [phone] Dangelo Salinas MD Unavailable Anastasia Stearns RN Unavailable [phone] Germaine Lopez CHW Unavailable [phone] Robin Zepeda MD Unavailable [phone] Encounter Details Date Type Department Care Team [...] How often do you attend restoration or baptist serv ices? Never 02/28/2024 Do [...] Answer Date Recorded PHQ-2 Score 1 04/14/2024 [facility] of Occupat ional Health - Occupational [...] Office Visit [facility] [address] [place] [address] Denise Woodson Ra, FLIGHT ATTENDANT/INFLIGHT SUPERVISOR DOCUMENT REVIEWER [address] [place], [place] [address] 06/08/2024 8:30 AM CDT Office Visit [facility] [address] [place] [address] Denise Woodson Ra, FLIGHT ATTENDANT/INFLIGHT SUPERVISOR DOCUMENT REVIEWER [address] [place] [address] 06/26/2024 2:40 PM CDT Office Visit [facility] [address] [employer] [address] [place] [address] Danna Cardenas PA-C 0205 [place], [place] [address] documented as of this encounter Goals Goal [...] Mental Health weekly - PT, OT and ASSEMBLY OPERATOR - PCP appointment 05/26/24 & 06/08/24 - Stroke Neurology Dr. Hoyos 04/14/24 #[phone] - Epilepsy Neurology Dr. Barcenas 05/05/24 follow up recommended in 2 months: 07/05/24 TBD. #[phone] - Vascular Dr. Zambrano 05/01/24 - follow up recommended in 6 months: 11/11/24 TBD #[phone]. - MTM if covered by insurance TBD [...] clinic with 24/7 after hours services available. Hardwood Sawyer will remain available as needed. documented as of this encounter Visit Diagnoses Not on filedocumented in this encounter Additional Health Concerns Active Problems Noted Date Diagnosed Date Increased risk of re-admission 02/18/2024 Assessment Noted Time PHQ-9 Depression Total Score: 5 03/17/20 9:45 AM CDT documented as of this encounter Care Teams Welding Operator Relationship Specialty Start Date End Date Winston Villatoro OD [facility] [place] [address] [place] [address] PCP - Ophthalmology Ophthalmology 02/11/13 Denise Woodson Ra, FLIGHT ATTENDANT/INFLIGHT SUPERVISOR DOCUMENT REVIEWER [address] [place] [address] PCP - General Family Practice 09/21/20 Denise Woodson Ra, APRN DOCUMENT REVIEWER [address] [place] [place] [address] Assigned PCP 07/17/20 Usha Simon APRN DOCUMENT REVIEWER [address] 9[place]60[address] [address] Nurse Practitioner Neurological Surgery 01/24/24 Dangelo Salinas MD [address] [place] [address] Neurology 01/27/24 Anastasia Stearns, RN Lead Hardwood Sawyer 02/06/24 Germaine Lopez, W Community Health Worker Primary Care - CC 02/18/24 Robin Zepeda MD [address] [address] Assigned Neuroscience Provider 03/08/24 05/07/24 documented as of this encounter
--- OUTSIDE RECORDS SUMMARY | 2024-05-17 01:24 | XMS_ITS | Encounter Summary ---
Author Organization [place] Address [address] [place] [address] Care Team Providers Care Timber Hand Name Role Phone Winston Villatoro OD Unavailable [phone] Denise Woodson Ra, APRN FOIL SPINNER Unavailable [phone] Denise Woodson Ra, APRN FOIL SPINNER Primary Care Provid er Usha Simon APRN FOIL SPINNER Unavailable [phone] Dangelo Salinas MD Unavailable Anastasia Stearns RN Unavailable [phone] Germaine Lopez CHW Unavailable Robin Zepeda MD Unavailable [phone] Reason for Visit * Rehab Therapy Integrated Services (Routine) - Authorized Specialty Diagnoses / Procedures Referred By Nila shah Referred To Contact Diagnoses Cerebrovascular accident (CVA), unspecified mechanism (H) [address] [address] Referral ID Status Reason Start Date Expiration Date V isits Requested Visits Authorized [id number] Authorized 09/16/2023 09/15/2024 365 365 Encounter Details Date Type Department Care Team (Late st Contact Info) Description 04/15/2024 8:45 AM CDT Therapy Visit [address] [phone] Denise Woodson Ra, APRN FOIL SPINNER [address] [place] [address] Isabel Beauliue, OTJah [facility] [address] [place], [place] [address] [address] Cerebrovascular accident (CVA), unspecified mechanism (H) (Primary [...] How often do you attend cheondoism or jainism serv ices? Never 02/28/2024 Do you belong [...] Answer Date Recorded PHQ-2 Score 1 04/14/2024 [facility] of Occupat ional Health - Occupational Stress [...] AM CDT Office Visit [facility] [address] [place] [address] Denise Woodson Ra, BELT CHANGER FOIL SPINNER [address] [place] [address] 06/08/2024 8:30 AM CDT [facility] [address] [place] [address] Denise Woodson Ra, BELT CHANGER FOIL SPINNER [address] [place] [address] 06/26/2024 2:40 PM CDT Office Visit [facility] Heart [facility] [address] [facility] [address] [place] [address] Danna Cardenas PA-C 6405 [place], [place] [address] documented as of this encounter Goals Goal Patient Goal Type Associated Problems Recent Progress Patient-Stated? Author I would like additional resources and support to manage my health and prevent future avoidable ED visits/hospital admissions Care Plan Increased risk of re-admission 10%( 3:13 PM CDT) nAastasia Talamantes, RN Note: Barriers: diagnosis of multiple, chronic, complex medical conditions, provider availability - wait time to complete appointments, etc. Strengths: motivated, engaged in care coordination Patient expressed understanding of goal: yes Action steps to achieve this goal: 1. I will follow up with my providers as scheduled/recommended - Mental Health weekly - PT, OT and PRICING/SIGNAGE TEAM MEMBER - PCP appointment 05/26/24 & 06/08/24 - Stroke Neurology Dr. Hoyos 04/14/24 #[phone] - Epilepsy Neurology Dr. Barcenas 05/05/24 follow up recommended in 2 months: 07/05/24 TBD. #[phone] - Vascular Dr. Zambrano 05/01/24 - follow up recommended in 6 months: 11/11/24 TBD #[phone]. - MTM if covered by insurance TBD [...] clinic with 24/7 after hours services available. Program Manufacturing Leader will remain available as needed. documented as of this encounter Visit Diagnoses Diagnosis Cerebrovascular accident (CVA), unspecified mechanism (H)- Primary documented in this encounter Additional Health Concerns Active Problems Noted Date Diagnosed Date Increased risk of re-admission 02/18/2024 Assessment Noted Time PHQ-9 Depression Total Score: 5 03/17/20 24 9:45 AM CDT documented as of this encounter Care Teams Timber Hand Relationship Specialty Start Date End Date Winston Villatoro OD [facility] 701 [facility] 95 [place] [address] PCP - Ophthalmology Ophthalmology 02/11/13 Denise Woodson Ra, APRN FOIL SPINNER [address] [place] [address] PCP - General Family Practice 09/21/20 Denise Woodson Ra, APRN FOIL SPINNER [address] [place] [address] Assigned PCP 07/17/20 Usha Simon APRN FOIL SPINNER 909 [facility] [id number] [place] [address] Nurse Practitioner Neurological Surgery 01/24/24 Dangelo Salinas MD [address] [facility] [address] 200 [place], [place] [address] Neurology 01/27/24 Anastasia Stearns, RN Lead Program Manufacturing Leader 02/06/24 Germaine Lopez, [facility] Community Health Worker Primary Care - CC 02/18/24 Robin Zepeda MD 9 [facility]121[place], [place] [address] Assigned Neuroscience Provider 03/08/24 05/07/24 documented as of this encounter
--- OUTSIDE RECORDS SUMMARY | 2024-05-17 01:24 | XMS_ITS | Encounter Summary ---
Author Organization [place] Address [address] [place] [address] Care Team Providers Care Blocker And Polisher Name Role Phone ShaunaWinston OD Unavailable [phone] Denise Woodson Ra, APRN CODE MACHINE OPERATOR Unavailable [phone] Denise Woodson Ra, APRN CODE MACHINE OPERATOR Primary Care Provid er Usha Simon APRN CODE MACHINE OPERATOR Unavailable [phone] Dangelo Salinas MD Unavailable Anastasia Stearns RN Unavailable [phone] Germaine Lopez CHW Unavailable [phone] Robin Zepeda MD Unavailable [phone] Encounter Details Date Type Department Care Team [...] How often do you attend temple or mu-ism serv ices? Never 02/28/2024 Do [...] Answer Date Recorded PHQ-2 Score 1 04/14/2024 [facility] of Occupat ional Health - [...] CDT Office Visit [facility] [address] [place] [address] Denise Woodson Ra, CUSTOMER CARE ASSOCIATE CODE MACHINE OPERATOR [address] [place], [place] [address] 06/08/2024 8:30 AM CDT Office Visit [facility] [address] [place] [address] Denise Woodson Ra, CUSTOMER CARE ASSOCIATE CODE MACHINE OPERATOR [address] [place] [address] 06/26/2024 2:40 PM CDT Office Visit [facility] 6[address] [facility] [address] [place] [address] Danna Cardenas PA-C 0215 [place], [place] [address] documented as of this encounter Goals Goal [...] Mental Health weekly - PT, OT and CUSTOMER TECHNICAL SERVICES MANAGER - PCP appointment 05/26/24 & 06/08/24 - Stroke Neurology Dr. Hoyos 04/14/24 #[phone] - Epilepsy Neurology Dr. Barcenas 05/05/24 follow up recommended in 2 months: 07/05/24 TBD. #[phone] - Vascular Dr. Zambrano 05/01/24 - follow up recommended in 6 months: 11/11/24 TBD #[phone]. - MTM if covered by insurance TBD [...] clinic with 24/7 after hours services available. Seniour Insight Manager will remain available as needed. documented as of this encounter Visit Diagnoses Not on filedocumented in this encounter Additional Health Concerns Active Problems Noted Date Diagnosed Date Increased risk of re-admission 02/18/2024 Assessment Noted Time PHQ-9 Depression Total Score: 5 03/17/20 9:45 AM CDT documented as of this encounter Care Teams Blocker And Polisher Relationship Specialty Start Date End Date Winston Villatoro OD [facility] [place] [address] [place] [address] PCP - Ophthalmology Ophthalmology 02/11/13 Denise Woodson Ra, CUSTOMER CARE ASSOCIATE CODE MACHINE OPERATOR [address] [place] [place] [address] PCP - General Family Practice 09/21/20 Denise Woodson Ra, APRN CODE MACHINE OPERATOR [address] [place] [address] Assigned PCP 07/17/20 Usha Simon APRN CODE MACHINE OPERATOR [address] [place]216[address], [place] [address] Nurse Practitioner Neurological Surgery 01/24/24 Dangelo Salinas MD [address] [place] [address] Neurology 01/27/24 Anastasia Stearns, RN Lead Seniour Insight Manager 02/06/24 Germaine Lopez, W Community Health Worker Primary Care - CC 02/18/24 Robin Zepeda MD [address] [address] Assigned Neuroscience Provider 03/08/24 05/07/24 documented as of this encounter
--- OUTSIDE RECORDS SUMMARY | 2024-05-17 01:24 | XMS_ITS | Encounter Summary ---
Author Organization [place] Address [address] [place] [address]. [place] [address] Care Team Providers Care It Communications Specialist Name Role Phone Winston Villatoro OD Unavailable [phone] Denise Woodson Ra, APRN FUND CONTROLLER Unavailable [phone] Denise Woodson Ra, APRN FUND CONTROLLER Primary Care Provid er Usha Simon APRN FUND CONTROLLER Unavailable Dangelo Salinas MD Unavailable Anastasia Stearns RN Unavailable Germaine Lopez CHW Unavailable [phone] Robin Zepeda MD Unavailable Reason for Visit * Reason Comments Medication Refill Encounter Details Date Type Department Care Team (Late st Contact Info) Description 04/27/2024 [facility] [address] [place] [address] Denise Woodson Ra, APRN FUND CONTROLLER [address] [place] [address] Medication Refill Social History Tobacco [...] How often do you attend spiritism or episcopalian serv ices? Never 02/28/2024 Do [...] CDT Office Visit [facility] [address] [place] [address] Denise Woodson Ra, APRN FUND CONTROLLER [address] [facility], [place] [address] 06/08/2024 8:30 AM CDT Office Visit [facility] [address] [facility] [place] [address] Denise Woodson Ra, APRN FUND CONTROLLER [address] [place] [address] 06/26/2024 2:40 PM CDT Office Visit [facility] [address] [facility] [address] [place] [address] Danna Cardenas PA-C 6405 [place], [place] 4[address] documented as of this encounter Goals Goal [...] Mental Health weekly - PT, OT and DRY CELL ASSEMBLY SUPERVISOR - PCP appointment 05/26/24 & 06/08/24 - Stroke Neurology Dr. Hoyos 04/14/24 #[phone] - Epilepsy Neurology Dr. Barcenas 05/05/24 follow up recommended in 2 months: 07/05/24 TBD. #[phone] - Vascular Dr. Zambrano 05/01/24 - follow up recommended in 6 months: 11/11/24 TBD #[phone]. - MTM if covered by insurance TBD [...] clinic with 08/04 after hours services available. Charge Accounts Audit Clerk will remain available as needed. documented as of this encounter Visit Diagnoses Diagnosis History of seizure documented in this encounter Additional Health Concerns Active Problems Noted Date Diagnosed Date Increased risk of re-admission 02/18/2024 Assessment Noted Time PHQ-9 Depression Total Score: 5 03/17/20 9:45 AM CDT documented as of this encounter Care Teams It Communications Specialist Relationship Specialty Start Date End Date Winston Villatoro OD [facility] 701 [facility] [address] [place] [address] PCP - Ophthalmology Ophthalmology 02/11/13 Denise Woodson Ra, APRN FUND CONTROLLER [address] [place] [address] PCP - General Family Practice 09/21/20 Denise Woodson Ra, APRN FUND CONTROLLER [address] [place] [address] Assigned PCP 07/17/20 Usha Simon APRN FUND CONTROLLER 9 [facility]121[place], [place] [address] Nurse Practitioner Neurological Surgery 01/24/24 Dangelo Salinas MD [address] [place] [address] Neurology 01/27/24 Anastasia Stearns, RN Lead Charge Accounts Audit Clerk 02/06/24 Germaine Lopez, [facility] Community Health Worker Primary Care - CC 02/18/24 Robin Zepeda MD [address] [place], [place] [address] [address] Assigned Neuroscience Provider 03/08/24 05/07/24 documented as of this encounter
--- OUTSIDE RECORDS SUMMARY | 2024-05-17 01:24 | XMS_ITS | Encounter Summary ---
Author Organization [place] Address [address] [place] [address] Care Team Providers Care Podiatrist Orthopedic Name Role Phone ShaunaWinston OD Unavailable [phone] Denise Woodson Ra, APRN IT SECURITY PROJECT MANAGER Unavailable [phone] Denise Woodson Ra, APRN IT SECURITY PROJECT MANAGER Primary Care Provid er Usha Simon APRN IT SECURITY PROJECT MANAGER Unavailable [phone] Dangelo Salinas MD Unavailable Anastasia Stearns RN Unavailable [phone] Germaine Lopez CHW Unavailable [phone] Robin Zepeda MD Unavailable [phone] Encounter Details Date Type Department Care Team [...] Never 02/28/2024 How often do you attend pentecostalism or zoroastrianism serv ices? Never 02/28/2024 Do you belong to any clubs o r organizations such as pentecostalism groups, unions, fraternal or athletic groups, or [...] Score 0 03/17/2024 [facility] of Occupat ional Health - Occupational [...] AM CDT Office Visit [facility] [address] [place] [address] Denise Woodson Ra, APPAREL MANUFACTURE INSTRUCTOR IT SECURITY PROJECT MANAGER [address] [place], [place] [address] 06/08/2024 8:30 AM CDT Office Visit [facility] [address] [place] [address] Denise Woodson Ra, APPAREL MANUFACTURE INSTRUCTOR IT SECURITY PROJECT MANAGER [address] [place] [address] 06/26/2024 2:40 PM CDT Office Visit [facility] Heart [facility] [address] [facility] [address] [place] [address] Danna Cardenas PA-C 5175 [place], [place] [address] documented as of this encounter Goals Goal [...] Mental Health weekly - PT, OT and TWO NEEDLE MACHINE OPERATOR - PCP appointment 05/26/24 & 06/08/24 - Stroke Neurology Dr. Hoyos 04/14/24 #[phone] - Epilepsy Neurology Dr. Barcenas 05/05/24 follow up recommended in 2 months: 07/05/24 TBD. #[phone] - Vascular Dr. Zambrano 05/01/24 - follow up recommended in 6 months: 11/11/24 TBD #[phone]. - MTM if covered by insurance TBD [...] clinic with 24/7 after hours services available. Line Maintenance Supervisor will remain available as needed. documented as of this encounter Visit Diagnoses Not on filedocumented in this encounter Additional Health Concerns Active Problems Noted Date Diagnosed Date Increased risk of re-admission 02/18/2024 Assessment Noted Time PHQ-9 Depression Total Score: 5 03/17/20 9:45 AM CDT documented as of this encounter Care Teams Podiatrist Orthopedic Relationship Specialty Start Date End Date Winston Villatoro OD [facility] [place] [address] [place] [address] PCP - Ophthalmology Ophthalmology 02/11/13 Denise Woodson Ra, APPAREL MANUFACTURE INSTRUCTOR IT SECURITY PROJECT MANAGER [address] [address] [address] PCP - General Family Practice 09/21/20 Denise Woodson Ra, APRN IT SECURITY PROJECT MANAGER [address] [address] [address] Assigned PCP 07/17/20 Usha Simon APRN IT SECURITY PROJECT MANAGER [address] 1580[address], [place] [address] Nurse Practitioner Neurological Surgery 01/24/24 Dangelo Salinas MD [address] [place] [address] Neurology 01/27/24 Anastasia Stearns, RN Lead Line Maintenance Supervisor 02/06/24 Germaine Lopez, W Community Health Worker Primary Care - CC 02/18/24 Robin Zepeda MD [address] [address] Assigned Neuroscience Provider 03/08/24 05/07/24 documented as of this encounter
--- OUTSIDE RECORDS SUMMARY | 2024-05-17 01:24 | XMS_ITS | Encounter Summary ---
Author Organization [place] Address [address] [place] [address] Care Team Providers Care Machine Sign Writer Name Role Phone ShaunaWinston OD Unavailable [phone] Denise Woodson Ra, APRN COLLEGE SPORTS ASSISTANT Unavailable [phone] Denise Woodson Ra, APRN COLLEGE SPORTS ASSISTANT Primary Care Provid er Usha Simon APRN COLLEGE SPORTS ASSISTANT Unavailable [phone] Dangelo Salinas MD Unavailable Anastasia Stearns RN Unavailable Germaine Lopez CHW Unavailable [phone] Robin Zepeda MD Unavailable [phone] Encounter Details Date Type Department Care Team [...] How often do you attend pentecostalism or latter day serv ices? Never 02/28/2024 [...] Date Recorded PHQ-2 Score 1 04/14/2024 [facility] [...] Office Visit [facility] [address] [place] [phone] Denise Woodson Ra, BRIEFCASE SEWER COLLEGE SPORTS ASSISTANT [address] [place], [place] [id number] 06/08/2024 8:30 AM CDT Office Visit [facility] [address] [place] [phone] Denise Woodson Ra, BRIEFCASE SEWER COLLEGE SPORTS ASSISTANT [address] [place] [address] 06/26/2024 2:40 PM CDT Office Visit [facility] [address] [facility] [address] [place] [phone] Danna Cardenas PA-C [address] [place], [place] [address] documented as of this encounter Goals Goal [...] Mental Health weekly - PT, OT and MANUFACTURING EXECUTIVE - PCP appointment 05/26/24 & 06/08/24 - Stroke Neurology Dr. Hoyos 04/14/24 #[phone] - Epilepsy Neurology Dr. Barcenas 05/05/24 follow up recommended in 2 months: 07/05/24 TBD. #[phone] - Vascular Dr. Zambrano 05/01/24 - follow up recommended in 6 months: 11/11/24 TBD #[phone]. - MTM if covered by insurance TBD [...] clinic with 24/7 after hours services available. Slitter And Cutter Operator will remain available as needed. documented as of this encounter Visit Diagnoses Not on filedocumented in this encounter Additional Health Concerns Active Problems Noted Date Diagnosed Date Increased risk of re-admission 02/18/2024 Assessment Noted Time PHQ-9 Depression Total Score: 5 03/17/20 9:45 AM CDT documented as of this encounter Care Teams Machine Sign Writer Relationship Specialty Start Date End Date Winston Villatoro OD [facility] [place] [address] [place] [address] PCP - Ophthalmology Ophthalmology 02/11/13 Denise Woodson Ra, BRIEFCASE SEWER COLLEGE SPORTS ASSISTANT [address] [place] [address] PCP - General Family Practice 09/21/20 Denise Woodson Ra, APRN COLLEGE SPORTS ASSISTANT [address] [place] [address] Assigned PCP 07/17/20 Usha Simon APRN COLLEGE SPORTS ASSISTANT [address] [id number], [place] [address] Nurse Practitioner Neurological Surgery 01/24/24 Dangelo Salinas MD [address] [place] [address] Neurology 01/27/24 Anastasia Stearns, RN Lead Slitter And Cutter Operator 02/06/24 Germaine Lopez, W Community Health Worker Primary Care - CC 02/18/24 Robin Zepeda MD [address] [address] Assigned Neuroscience Provider 03/08/24 05/07/24 documented as of this encounter
--- OUTSIDE RECORDS SUMMARY | 2024-05-17 01:24 | XMS_ITS | Encounter Summary ---
Author Organization [place] Address [address] [place] [address]. [place] [address] Care Team Providers Care Plunger Scoop Operator Name Role Phone Winston Villatoro OD Unavailable [phone] Denise Woodson Ra, APRN ADVERTISING JOB TITLES Unavailable + [phone] Denise Woodson Ra HOSPITAL CHIEF EXECUTIVE OFFICER ADVERTISING JOB TITLES Primary Care Provid er Usha Simon APRN ADVERTISING JOB TITLES Unavailable Dangelo Salinas MD Unavailable Anastasia Stearns RN Unavailable Germaine Lopez CHW Unavailable Robin Zepeda MD Unavailable [phone] Reason for Visit * Reason Comments Medication Refill Encounter Details Date Type Department Care Team (Late st Contact Info) Description 04/30/[address] [facility] [address] [place] [address] Denise Woodson Ra, APRN ADVERTISING JOB TITLES [address] [place] [address] Medication Refill Social History Tobacco [...] How often do you attend scientology or presybeterian serv ices? Never 02/28/2024 Do [...] Answer Date Recorded PHQ-2 Score 1 04/14/2024 [facility] - Occupational [...] Description 05/26/2024 8:30 AM CDT [facility] [address] [place] [address] Denise Woodson Ra, HOSPITAL CHIEF EXECUTIVE OFFICER ADVERTISING JOB TITLES [address] [place] [id number] 06/08/2024 8:30 AM CDT [facility] [address] [place] [address] Denise Woodson Ra, HOSPITAL CHIEF EXECUTIVE OFFICER ADVERTISING JOB TITLES [address] [place] [id number] 06/26/2024 2:40 PM CDT Office [facility] [address] [facility] [address] [place] [phone] Danna Cardenas PA-C [address] [facility] [place] [address] documented as of this encounter Goals Goal [...] Health weekly - PT, OT and CUSTOMER SERVICER - PCP appointment 05/26/24 & 06/08/24 - Stroke Neurology Dr. Hoyos 04/14/24 #[phone] - Epilepsy Neurology Dr. Barcenas 05/05/24 follow up recommended in 2 months: 07/05/24 TBD. #[phone] - Vascular Dr. Zambrano 05/01/24 - follow up recommended in 6 months: 11/11/24 TBD #[phone]. - MTM if covered by insurance TBD [...] clinic with 24/7 after hours services available. Coiler will remain available as needed. documented as of this encounter Visit Diagnoses Diagnosis History of seizure documented in this encounter Additional Health Concerns Active Problems Noted Date Diagnosed Date Increased risk of re-admission 02/18/2024 Assessment Noted Time PHQ-9 Depression Total Score: 5 03/17/20 24 9:45 AM CDT documented as of this encounter Care Teams Plunger Scoop Operator Relationship Specialty Start Date End Date Winston Villatoro OD [facility] [place] [address] [place] [address] PCP - Ophthalmology Ophthalmology 02/11/13 Denise Woodson Ra, APRN ADVERTISING JOB TITLES [address] [place] [address] PCP - General Family Practice 09/21/20 Denise Woodson Ra, APRN ADVERTISING JOB TITLES [address] [place] [address] Assigned PCP 07/17/20 Usha Simon APRN ADVERTISING JOB TITLES [address] [address] Nurse Practitioner Neurological Surgery 01/24/24 Dangelo Salinas MD [address] [place] [address] Neurology 01/27/24 Anastasia Stearns, RN Lead Coiler 02/06/24 Germaine Lopez, W Community Health Worker Primary Care - CC 02/18/24 Robin Zepeda MD [address] 233845 Assigned Neuroscience Provider 03/08/24 05/07/24 documented as of this encounter
--- OUTSIDE RECORDS SUMMARY | 2024-05-17 01:24 | XMS_ITS | Encounter Summary ---
Author Organization [place] Address [address] [place] [address]. [place] [address] Care Team Providers Care Rubber Stamp Assembler Name Role Phone Winston Villatoro OD Unavailable [phone] Denise Woodson Ra, APRN AIR EXPORT LOGISTICS MANAGER Unavailable [phone] Denise Woodson Ra, APRN AIR EXPORT LOGISTICS MANAGER Primary Care Provid er Usha Simon APRN AIR EXPORT LOGISTICS MANAGER Unavailable [phone] Dangelo Salinas MD Unavailable Anastasia Stearns RN Unavailable [phone] Germaine Lopez CHW Unavailable [phone] Robin Zepeda MD Unavailable Encounter Details Date Type Department Care Team (Late st Contact Info) Description 04/08/2024 [facility] [address] [place] [address] Denise Woodson Ra, APRN AIR EXPORT LOGISTICS MANAGER [address] [place] [address] Social History Tobacco Use Types [...] How often do you attend caodaism or cheondoism serv ices? Never 02/28/2024 Do [...] 04/14/2024 [facility] - Occupational Stress Questionnaire Answer Date [...] CDT Signed. Faxed. Mailed. Qing Cardona Lead Corduroy Cutter Operator [facility] * Telephone Encounter - Qing Copeland - 04/08/2024 1:42 PM CDT Placed form in provider's basket for review and signature. Qing Copeland Lead Corduroy Cutter Operator [facility] * Telephone Encounter - Breana [...] Is this the correct address?: Yes [address] [facility] [address] and Patient Notified form requests are processed in 5-7 business days:Yes Could we send this information to you in [facility] or would you prefer to receive a phone call?: Patient would prefer a phone call Okay to leave a detailed message?: Yes at Cell number on file: Telephone Information: Breana Howard Patient Rep. documented in this encounter Plan of Treatment Upcoming Encounters Date Type Department Care Team ([facility] st Contact Info) Description 05/26/2024 8:30 AM CDT Office Visit [facility] [address] [place] [phone] Denise Woodson Ra, MACHINE I TRIMMER AIR EXPORT LOGISTICS MANAGER [address] [place], [place] [phone] 06/08/2024 8:30 AM CDT Office Visit [facility] [address] [place] [phone] Denise Woodson Ra, MACHINE I TRIMMER AIR EXPORT LOGISTICS MANAGER [address] [place], [place] [phone] 06/26/2024 2:40 PM CDT Office Visit [facility] [address] [facility] [address] [place] [phone] Danna Cardenas PA-C [address] [place], [place] [address] documented as of this encounter Goals Goal [...] 06/08/24 - Stroke Neurology Dr. Hoyos 04/14/24 #[phone] - Epilepsy Neurology Dr. Barcenas 05/05/24 follow up recommended in 2 months: 07/05/24 TBD. #[phone] - Vascular Dr. Zambrano 05/01/24 - follow up recommended in 6 months: 11/11/24 TBD #[phone]. - MTM if covered by insurance TBD [...] clinic with 24/ after hours services available. Mink Farmer will remain available as needed. documented as of this encounter Visit Diagnoses Not on filedocumented in this encounter Additional Health Concerns Active Problems Noted Date Diagnosed Date Increased risk of re-admission 02/18/2024 Assessment Noted Time PHQ-9 Depression Total Score: 5 03/17/20 9:45 AM CDT documented as of this encounter Care Teams Rubber Stamp Assembler Relationship Specialty Start Date End Date Winston Villatoro OD [facility] [place] [address] [place] [address] PCP - Ophthalmology Ophthalmology 02/11/13 Denise Woodson Ra, MACHINE I TRIMMER AIR EXPORT LOGISTICS MANAGER [address] [place] [address] PCP - General Family Practice 09/21/20 Denise Woodson Ra, APRN AIR EXPORT LOGISTICS MANAGER [address] [place] [address] Assigned PCP 07/17/20 Usha Simon APRN AIR EXPORT LOGISTICS MANAGER [address] [facility] [place], [place] [address] Nurse Practitioner Neurological Surgery 01/24/24 Dangelo Salinas MD [address] [place] [address] Neurology 01/27/24 Anastasia Stearns, RN Lead Mink Farmer 02/06/24 Germaine Lopez, W Community Health Worker Primary Care - CC 02/18/24 Robin Zepeda MD [address] [facility] [place], [place] [address] Assigned Neuroscience Provider 03/08/24 05/07/24 documented as of this encounter
--- OUTSIDE RECORDS SUMMARY | 2024-05-17 01:24 | XMS_ITS | Encounter Summary ---
Author Organization [place] Address [address] [place] [address]. [place] [address] Care Team Providers Care Australian Rules Footballer Name Role Phone Winston Villatoro OD Unavailable [phone] Denise Woodson Ra, APRN LACQUER PIN PRESS OPERATOR Unavailable [phone] Denise Woodson Ra, APRN LACQUER PIN PRESS OPERATOR Primary Care Provid er Usha Simon APRN LACQUER PIN PRESS OPERATOR Unavailable [phone] Dangelo Salinas MD Unavailable Anastasia Stearns RN Unavailable [phone] Germaine Lopez CHW Unavailable [phone] Robin Zepeda MD Unavailable Reason for Visit * Reason Onset Date Comments Referral 04/14/2024 Pt referred to [facility] by Dr. Raul Hoyos for fibromuscular dysplasia. Encounter Details Date Type Department Care Team (Late st Contact Info) Description 04/14/2024 Telephone [facility] [place] [address] [place] [address] Nurse, [facility] Referral (Pt [facility] [...] How often do you attend christianity or worship serv ices? Never 02/28/2024 Do [...] Answer Date Recorded PHQ-2 Score 1 04/14/2024 [facility] - Occupational Stress Questionnaire Answer Date [...] 04/14/2024 10:58 AM CDT Referral received via Email Data Source on 04/14/24. Pt referred to [facility] by Dr. Raul Hoyos for fibromuscular dysplasia. Routing to scheduling to coordinate the following: NEW VASCULAR PATIENT consult with Vascular Medicine Please schedule this at next available Appt note: Pt referred to [facility] by Dr. Raul Hoyos for fibromuscular dysplasia. documented in this encounter Plan of Treatment Upcoming Encounters Date Type Department Care Team (Late st Contact Info) Description 05/26/2024 8:30 AM CDT Office Visit [facility] [address] [place] [phone] Denise Woodson Ra, GENERAL HARDWARE SALESPERSON LACQUER PIN PRESS OPERATOR [address] [facility], [place] [id number] 06/08/2024 8:30 AM CDT Office Visit [facility] [address] [place] [phone] Denise Woodson Ra, GENERAL HARDWARE SALESPERSON LACQUER PIN PRESS OPERATOR [address] [facility], [place] [id number] 06/26/2024 2:40 PM CDT Office Visit [facility] [address] [facility] [address] [place] [phone] Danna Cardenas PA-C [address] [place], [place] 4[address] documented as of this encounter Goals Goal [...] Mental Health weekly - PT, OT and FIXED ROUTE BUS OPERATOR - PCP appointment 05/26/24 & 06/08/24 - Stroke Neurology Dr. Hoyos 04/14/24 #[phone] - Epilepsy Neurology Dr. Barcenas 05/05/24 follow up recommended in 2 months: 10/20/24 TBD. #[phone] - Vascular Dr. Zambrano 05/01/24 - follow up recommended in 6 months: 11/11/24 TBD #[phone]. - MTM if covered by insurance TBD [...] clinic with 08/04 after hours services available. Poultry Farm Worker will remain available as needed. documented as of this encounter Visit Diagnoses Not on filedocumented in this encounter Additional Health Concerns Active Problems Noted Date Diagnosed Date Increased risk of re-admission 02/18/2024 Assessment Noted Time PHQ-9 Depression Total Score: 5 03/17/20 9:45 AM CDT documented as of this encounter Care Teams Australian Rules Footballer Relationship Specialty Start Date End Date Winston Villatoro OD [facility] [address] [facility] [address] [place] [address] PCP - Ophthalmology Ophthalmology 02/11/13 Denise Woodson Ra, APRN LACQUER PIN PRESS OPERATOR [address] [place], [place] [id number] PCP - General Family Practice 09/21/20 Denise Woodson Ra, APRN LACQUER PIN PRESS OPERATOR [address] [place] [address] Assigned PCP 07/17/20 Usha Simon APRN LACQUER PIN PRESS OPERATOR [address] [facility], [place] [address] Nurse Practitioner Neurological Surgery 01/24/24 Dangelo Salinas MD [address] [place] [address] Neurology 01/27/24 Anastasia Stearns, RN Lead Poultry Farm Worker 02/06/24 Germaine Lopez, CHW Community Health Worker Primary Care - CC 02/18/24 Robin Zepeda MD [address] [place], [place] [address] [address] Assigned Neuroscience Provider 03/08/24 05/07/24 documented as of this encounter
--- OUTSIDE RECORDS SUMMARY | 2024-05-17 01:24 | XMS_ITS | Encounter Summary ---
Author Organization [facility] Address [address] [place] [address] Care Team Providers Care Rabbler Name Role Phone Winston Villatoro OD Unavailable [phone] Denise Woodson Ra, APRN KEG VARNISHER Unavailable +- [phone] Denise Woodson Ra, APRN KEG VARNISHER Primary Care Provid er Usha Simon APRN KEG VARNISHER Unavailable [phone] Dangelo Salinas MD Unavailable Anastasia Stearns RN Unavailable Germaine Lopez CHW Unavailable Robin Zepeda MD Unavailable [phone] Reason for Referral * Consultation (Routine: Next available opening) - Pending Review Specialty Diagnoses / Procedures Referred By Nila t Referred To Contact Genetics, Clinical Diagnoses Fibromuscular dysplasia (H24) ASD (atrial septal defect) EDS (Lizy-Danlos syndrome) Lisa Zambrano MD [address] [facility] [address] [place] [address] Referral ID Status Reason Start Date Expiration Date V isits Requested Visits Authorized [id number] Pending Review 05/01/2024 05/01/2025 1 1 Question Answer Reason for Referral: Cardiology Scheduling Instructions: [facility] will call you to coordinate your care as prescribed by your provider. If you don't hear from a rental representative within 2 business days, please call [phone]. Additional Information: carries Dx of EDS , [...] plan with any benefit or coverage questions. [facility] will call you to coordinate your care as prescribed by your provider. If you don't hear from a rental representative within 2 business days, please call [phone]. Reason for Visit * Reason Comments Consult Pt referred to [facility] b y Dr. Raul Hoyos for fibromuscular dysplasia. * Consultation (Routine: Next available opening) - Pending Review Specialty Diagnoses / Procedures Referred By Juhiac t Referred To Contact Cardiovascular Disease Diagnoses Fibromuscular dysplasia (H24) Raul Hoyos MD [address] [facility] [place] [id number] [place] [address] Vascular Center [address] [place] [address] Referral ID Status Reason Start Date Expiration Date V isits Requested Visits Authorized [id number] Pending Review 04/14/2024 04/14/2025 1 1 Encounter Details Date Type Department Care Team (Latest Contact Info) Description 05/01/2024 10:30 AM CDT Office Visit [facility] [place] [address] [place] [address] Lisa Zambrano MD [address] [place] [id number] Fibromuscular dysplasia (H24) ?? on cerbral angio Rt ICA dissection noted 12/2023 at [facility] subsequent head and neck CTA negtaive (Primary Dx); Hyperlipidemia LDL goal <70; ASD (atrial septal defect) amplatzer septal occluder- serial #[id number] ( 06/2006); Cerebrovascular accident (CVA), unspecified mechanism (H) 12/2023 ? 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 Never 02/28/2024 Do you belong to any clubs o r organizations such as rastafarian groups, unions, fraternal or athletic groups, or [...] Answer Date Recorded PHQ-2 Score 1 04/14/2024 [facility] [place] [facility] - Occupational Stress [...] Zambrano MD - 05/01/2024 10:30 AM CDT [facility] INITIAL VASCULAR MEDICINE CONSULT ( New Patient visit) PRIMARY HEALTH CARE PROVIDER: Denise Woodson Ra, AMMUNITION ASSEMBLY LABORER,KEG VARNISHER REFERRING HEALTH CARE PROVIDER; Raul Hoyos MD REASON FOR CONSULT: Evaluation and management of FMD? With recent history of right ICA dissection noted on cerebral angiogram December 2023. 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 She underwent COL3A1 testing at [facility] which was negative in 2018 She is new to me reviewed available extensive records and recent imaging studies in the [facility] and Care Everywhere and updated chart [...] Past Surgical History: Procedure Laterality Date C DELIVERER OUTSIDE PROCEDURE DATE: vag del. 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 Employer: [employer] Tobacco Use Smoking status: Never Passive exposure: [...] 10 min Stress: Stress Concern Present (02/28/2024) [place] [place] [facility] - Occupational Stress Questionnaire Feeling of Stress : To some extent Social Connections: Socially Isolated (02/28/2024) Social Connection and Isolation Panel [NHANES] Frequency of Communication with Friends and Family: Once a week Frequency of Social Gatherings with Friends and Family: Never Attends Christianity Services: Never Active Member of [...] angio Rt ICA dissection noted 12/2023 at [facility] subsequent head and neck CTA negative X 2 , CTA of the chest abdomen pelvis negative for FMD in other arterial territories - Adult Genetics & Metabolism School Counsellor Referral; Future 2. Hyperlipidemia LDL goal <70 3. ASD (atrial septal defect) amplatzer septal occluder- serial #[id number] ( 06/2006) - Adult Genetics & Metabolism School Counsellor Referral; Future 4. Cerebrovascular accident (CVA), unspecified mechanism (H) 12/2023 ? 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 She underwent subsequent CT of head and neck x 2 which were negative for FMD . Subsequent CTA chest abdomen pelvis no FMD changes. She has a hyperextensibility of the joints with positive thumb sign and elbow sign. In 2018 she was diagnosed EDS at [facility]. COL3A1 test was negative. She has a 3 grownup children. No previous organ rupture or blood vessel rupture. History of ASD which was closed in 2005 at [facility]. She was also doing deep neck massages for DJD of the spine for some time Currently taking aspirin 162 mg daily and tolerating Currently followed by neurology/stroke service Given her unusual clinical situation of dural aVF, ASD, FMD changes, EDS features she will benefit getting genetic testing arrange a referral to [facility] Continue aspirin 162 mg daily with [...] we will continue to supprt Alcon A [place] and the subsequent management of this/these conditions and with ongoing continuity of care for this/these conditions. Thank you for the consultation This note was dictated by utilizing [employer] software Copy of this note to primary care physician and referring physician Lisa Zambrano MD,FAHA,FSVM,FNLA, FACP Vascular Medicine Clinical Hypertension Specialist Clinical Lipidologist documented in this encounter Plan of Treatment Upcoming Encounters Date Type Department Care Team (Late st Contact Info) Description 05/26/2024 8:30 AM CDT Office Visit [facility] [address] [place] [address] Denise Woodson Ra, AMMUNITION ASSEMBLY LABORER KEG VARNISHER [address] [place], [place] [id number] 06/08/2024 8:30 AM CDT Office Visit [facility] [address] [place] [phone] Denise Woodson Ra, AMMUNITION ASSEMBLY LABORER KEG VARNISHER [address] [place], [place] [phone] 06/26/2024 2:40 PM CDT Office Visit [facility] [address] [facility] [address] [place] [phone] Danna Cardenas PA-C [address] [place], [place] [address] Scheduled Referrals Name Type Priority Associated Diagnoses Orde r Schedule Adult Genetics & Metabolism School Counsellor Referral Referral Routine: Next available opening Fibromuscular dysplasia (H24) ?? 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 Hoyos 04/14/24 #[phone] - Epilepsy Neurology Dr. Barcenas 05/05/24 follow up recommended in 2 months: 07/05/24 TBD. #[phone] - Vascular Dr. Zambrano 05/01/24 - follow up recommended in 6 months: 11/11/24 TBD #[phone]. - MTM if covered by insurance TBD [...] clinic with 08/04 after hours services available. Transmission Maintenance Supervisor will remain available as needed. documented as of this encounter Visit Diagnoses Diagnosis Fibromuscular dysplasia (H24) ?? on cerbral angio Rt ICA dissection noted 12/2023 at [facility] subsequent head and neck CTA negtaive- Primary Other specified disorders of arteries and arterioles Hyperlipidemia LDL goal <70 Other and unspecified hyperlipidemia ASD (atrial septal defect) amplatzer septal occluder- serial #[id number] ( 06/2006) Ostium secundum type atrial septal defect Cerebrovascular accident (CVA), unspecified mechanism (H) 12/2023 ? 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 documented in this encounter Additional Health Concerns Active Problems Noted Date Diagnosed Date Increased risk of re-admission 02/18/2024 Assessment Noted Time PHQ-9 Depression Total Score: 5 03/17/20 24 9:45 AM CDT documented as of this encounter Care Teams Rabbler Relationship Specialty Start Date End Date Winston Villatoro OD [facility] [address] [place] [address] PCP - Ophthalmology Ophthalmology 02/11/13 Denise Woodson Ra AMMUNITION ASSEMBLY LABORER KEG VARNISHER [address] [place] [address] PCP - General Family Practice 09/21/20 Denise Woodson Ra, APRN KEG VARNISHER [address] [place] [address] Assigned PCP 07/17/20 Usha Simon APRN KEG VARNISHER [address] [address] Nurse Practitioner Neurological Surgery 01/24/24 Dangelo Salinas MD [address] [place] [address] Neurology 01/27/24 Anastasia Stearns, RN Lead Transmission Maintenance Supervisor 02/06/24 Germaine Lopez, W Community Health Worker Primary Care - CC 02/18/24 Robin Zepeda MD [address] [address] Assigned Neuroscience Provider 03/08/24 05/07/24 documented as of this encounter
--- OUTSIDE RECORDS SUMMARY | 2024-05-17 01:24 | XMS_ITS | Encounter Summary ---
Author Organization [facility] Address [address] [place] [address] Care Team Providers Care Tax Technician Name Role Phone ShaunaWinston OD Unavailable [phone] Denise Woodson Ra, APRN ELECTROPLATING SALES REPRESENTATIVE Unavailable + [phone] Denise Woodson Ra, APRN ELECTROPLATING SALES REPRESENTATIVE Primary Care Provid er Usha Simon APRN ELECTROPLATING SALES REPRESENTATIVE Unavailable + [phone] Dangelo Salinas MD Unavailable Anastasia Stearns RN Unavailable [phone] Germaine Lopez CHW Unavailable [phone] Robin Zepeda MD Unavailable [phone] Lisa Zambrano MD Unavailable [phone] Raul Hoyos MD Unavailable Encounter Details Date [...] How often do you attend taoist or yazdanism serv ices? Never 02/28/2024 Do [...] PHQ-2 Score 0 03/17/2024 [facility] Occupat ional Health - [...] Description 05/26/2024 8:30 AM CDT Office Visit [facility] [address] [place] [phone] Denise Woodson Ra, RIGGER ELECTROPLATING SALES REPRESENTATIVE [address] [place] [address] 06/08/2024 8:30 AM CDT [facility] [address] [place] [phone] Denise Woodson Ra, RIGGER ELECTROPLATING SALES REPRESENTATIVE [address] [place], [place] [phone] 06/26/2024 2:40 PM CDT Office Visit [facility] [address] [facility] [address] [place] [phone] Danna Cardenas PA-C [address] [place] [address] documented as of this encounter Goals Goal [...] Health weekly - PT, OT and DIRECTOR SPORTS - PCP appointment 05/26/24 & 06/08/24 - Stroke Neurology Dr. Hoyos 04/14/24 #[phone] - Epilepsy Neurology Dr. Barcenas 05/05/24 follow up recommended in 2 months: 07/05/24 TBD. #[phone] - Vascular Dr. Zambrano 05/01/24 - follow up recommended in 6 months: 11/11/24 TBD #[phone]. - MTM if covered by insurance TBD [...] clinic with 24/7 after hours services available. Sidewalk Inspector will remain available as needed. documented as of this encounter Visit Diagnoses Not on filedocumented in this encounter Additional Health Concerns Active Problems Noted Date Diagnosed Date Increased risk of re-admission 02/18/2024 Assessment Noted Time PHQ-9 Depression Total Score: 5 03/17/20 24 9:45 AM CDT documented as of this encounter Care Teams Tax Technician Relationship Specialty Start Date End Date Winston Villatoro OD [facility] [address] [facility] [address] [place] [address] PCP - Ophthalmology Ophthalmology 02/11/13 Denise Woodson Ra, APRN ELECTROPLATING SALES REPRESENTATIVE [address] [place] [address] PCP - General Family Practice 09/21/20 Denise Woodson Ra, APRN ELECTROPLATING SALES REPRESENTATIVE [address] [place] [address] Assigned PCP 07/17/20 Usha Simon APRN ELECTROPLATING SALES REPRESENTATIVE [address] [place] [id number] Nurse Practitioner Neurological Surgery 01/24/24 Dangelo Salinas MD [address] [place], [place] [id number] Neurology 01/27/24 Anastasia Stearns, RN Lead Sidewalk Inspector 02/06/24 Germaine Lopez, W Community Health Worker Primary Care - CC 02/18/24 Robin Zepeda MD [address] [id number] Assigned Neuroscience Provider 03/08/24 05/07/24 Lisa Zambrano MD [address] [place] [id number] Assigned Heart and Vascular Provider 05/08/24 Raul Hoyos MD [address] [id number] Assigned Neuroscience Provider 05/08/24 documented as of this encounter
--- OUTSIDE RECORDS SUMMARY | 2024-05-17 01:24 | XMS_ITS | Encounter Summary ---
Author Organization [facility] Address [address] [place] [address] Care Team Providers Care Corporation Secretary Name Role Phone ShaunaWinston moralez OD Unavailable [phone] Denise Woodson Ra, APRN SOLE LAYER Unavailable [phone] Denise Woodson Ra, APRN SOLE LAYER Primary Care Provid er Usha Simon APRN SOLE LAYER Unavailable [phone] Dangelo Salinas MD Unavailable Anastasia Stearns RN Unavailable [phone] Germaine Lopez CHW Unavailable [phone] Robin Zepeda MD Unavailable [phone] Encounter Details Date Type Department Care Team [...] Never 02/28/2024 How often do you attend denominational or advent serv ices? Never 02/28/2024 Do [...] Date Recorded PHQ-2 Score 1 04/14/2024 [facility] [...] Description 05/26/2024 8:30 AM CDT Office Visit [facility] [address] [place] [phone] Denise Woodson Ra, TIRE REGROOVING MACHINE OPERATOR SOLE LAYER [address] [place], [place] [phone] 06/08/2024 8:30 AM CDT Office Visit [facility] [address] [place] [phone] Denise Woodson Ra, TIRE REGROOVING MACHINE OPERATOR SOLE LAYER [address] [place] [address] 06/26/2024 2:40 PM CDT Office Visit [facility] [address] [facility] [address] [place] [phone] Danna Cardenas PA-C [address] [place], [place] [address] documented as of this encounter Goals Goal Patient Goal Type Associated Problems Recent Progress Patient-Stated? Author I would like additional resources and support to manage my health and prevent future avoidable ED visits/hospital admissions Care Plan Increased risk of re-admission 10%( 3:13 PM CDT) Aanstasia Talamantes, RN Note: Barriers: diagnosis of multiple, chronic, complex medical conditions, provider availability - wait time to complete appointments, etc. Strengths: motivated, engaged in care coordination Patient expressed understanding of goal: yes Action steps to achieve this goal: 1. I will follow up with my providers as scheduled/recommended - Mental Health weekly - PT, OT and LUDLOW MACHINE OPERATOR - PCP appointment 05/26/24 & 06/08/24 - Stroke Neurology Dr. Hoyos 04/14/24 #[phone] - Epilepsy Neurology Dr. Barcenas 05/05/24 follow up recommended in 2 months: 07/05/24 TBD. #[phone] - Vascular Dr. Zambrano 05/01/24 - follow up recommended in 6 months: 11/11/24 TBD #[phone]. - MTM if covered by insurance TBD [...] clinic with 24/7 after hours services available. Area Director will remain available as needed. documented as of this encounter Visit Diagnoses Not on filedocumented in this encounter Additional Health Concerns Active Problems Noted Date Diagnosed Date Increased risk of re-admission 02/18/2024 Assessment Noted Time PHQ-9 Depression Total Score: 5 03/17/20 9:45 AM CDT documented as of this encounter Care Teams Corporation Secretary Relationship Specialty Start Date End Date Winston Villatoro OD [facility] [place] [address] [place] [address] PCP - Ophthalmology Ophthalmology 02/11/13 Denise Woodson Ra, TIRE REGROOVING MACHINE OPERATOR SOLE LAYER [address] [place] [address] PCP - General Family Practice 09/21/20 Denise Woodson Ra, APRN SOLE LAYER [address] [place] [address] Assigned PCP 07/17/20 Usha Simon APRN SOLE LAYER [address] [place] [address], [place] [address] Nurse Practitioner Neurological Surgery 01/24/24 Dangelo Salinas MD [address] [place] [address] Neurology 01/27/24 Anastasia Stearns, RN Lead Area Director 02/06/24 Germaine Lopez, W Community Health Worker Primary Care - CC 02/18/24 Robin Zepeda MD [address] [address] Assigned Neuroscience Provider 03/08/24 05/07/24 documented as of this encounter
--- OUTSIDE RECORDS SUMMARY | 2024-05-17 01:24 | XMS_ITS | Encounter Summary ---
Author Organization [facility] Address [address] [place] [address] Care Team Providers Care Programmer Analyst Name Role Phone Winston Villatoro OD Unavailable [phone] Denise Woodson Ra, APRN RETAIL SUPERVISOR Unavailable + [phone] Denise Woodson Ra, APRN RETAIL SUPERVISOR Primary Care Provid er Usha Simon APRN RETAIL SUPERVISOR Unavailable Dangelo Salinas MD Unavailable Anastasia Stearns RN Unavailable [phone] Germaine Lopez CHW Unavailable [phone] Robin Zepeda MD Unavailable Reason for Referral * Rehab Therapy Physical Therapy (Routine: Next available opening) - Pending Review Specialty Diagnoses / Procedures Referred By Contlandon t Referred To Contact Diagnoses History of CVA (cerebrovascular accident) Raul Hoyos MD [address] [facility] [id number] [place] [address] Referral ID Status Reason Start Date Expiration Date V isits Requested Visits Authorized [id number] Pending Review 04/14/2024 04/14/2025 1 1 Question Answer Course of Action: Evaluation and Treatment Specialty Services: Per Associated Diagnosis Scheduling Instructions: [facility] will call you to coordinate your care as prescribed by your provider. If you don't hear from a credit representative within 2 business days, please call [...] provider. If you don't hear from a credit representative within 2 business days, please call . * Consultation (Routine: Next available opening) - Pending Review Specialty Diagnoses / Procedures Referred By Contlandon t Referred To Contact Cardiovascular Disease Diagnoses Fibromuscular dysplasia (H24) Raul Hoyos MD [address] [place] [address] [facility] Narda Cardona [address] [place] [phone] Referral ID Status Reason Start Date Expiration Date V isits Requested Visits Authorized [id number] Pending Review 04/14/2024 04/14/2025 1 1 Question Answer Preferred Location: [facility] Vascular [facility] Scheduling Instructions: Please call to schedule your [...] Description 04/14/2024 9:30 AM CDT Virtual Visit [facility] [address] 3rd [place] [address] Raul Hoyos MD [address] [place] [address] History of CVA (cerebrovascular accident) (Primary [...] How often do you attend hoahaoism or tenriism serv ices? Never 02/28/2024 Do you belong [...] Encounter Procedures Vascular Medicine Referral Physical Therapy Search Engine Optimization Manager Referral No follow up with me - will follow up with PCP Stroke & Endovascular RN Care Coordinators: Stacey Kelley, RN, BSN Meche De La Cruz, RN, CNRN, SCRN If you have any questions please contact the RN Care Coordinators at [phone], option 1. Thank you for choosing [facility] for your health care needs. documented in this encounter Progress Notes * Raul Hoyos MD - 04/14/2024 9:30 AM CDT Virtual Visit Details Type of service: Video Visit Originating Location (pt. Location): Home Distant Location (provider location): Off-site Platform used for Video Visit: Bobby * Raul Hoyos MD - 04/14/2024 9:30 AM CDT Images from the original note were not included. [facility] [address] [address] April 14, 2024 Alcon Zamora [address] [facility] [address] TOTAL 46 Video visit: 9:33-9:59 = 26 [...] R shoulder pain. 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 I re-ordered PT so she can get [...] Encounter Procedures Vascular Medicine Referral Physical Therapy Search Engine Optimization Manager Referral Brain MRI Impression: 1. No acute [...] 04/14/2024 9:30 AM CDT Current patient location: [address] [place] [address] Is the patient currently in the state of [place]? YES Visit mode:VIDEO If the visit is dropped, the patient can be reconnected by: TELEPHONE VISIT: Phone number: Telephone Information: Will anyone else be joining the visit? NO (If patient encounters technical issues they should call [phone] :[phone]) How would you like to obtain your [...] Description 05/26/2024 8:30 AM CDT Office Visit [address] [phone] Denise Woodson Ra, JOB MOLDER RETAIL SUPERVISOR [address] [place], [place] [address] 06/08/2024 8:30 AM CDT Office Visit [facility] [address] [place] [phone] Denise Woodson Ra, JOB MOLDER RETAIL SUPERVISOR [address] [place] [address] 06/26/2024 2:40 PM CDT Office Visit [facility] Heart [facility] [address] [facility] [address] [place] [address] Danna Cardenas PA-C 6405 [place], [place] [address] Scheduled Referrals Name Type Priority Associated Diagnoses Orde r Schedule Vascular Medicine Referral Referral Routine: Next available opening Fibromuscular dysplasia (H24) Expected: 05/15/2024 (Approximate), Expires: 04/14/2025 Physical Therapy Search Engine Optimization Manager Referral Referral Routine: Next available opening History [...] Mental Health weekly - PT, OT and ELECTRONIC COMPONENTS ASSEMBLER - PCP appointment 05/26/24 & 06/08/24 - Stroke Neurology Dr. Hoyos 04/14/24 #[phone] - Epilepsy Neurology Dr. Barcenas 05/05/24 follow up recommended in 2 months: 07/05/24 TBD. #[phone] - Vascular Dr. Zambrano 05/01/24 - follow up recommended in 6 months: 11/11/24 TBD #[phone]. - MTM if covered by insurance TBD [...] clinic with 08/04 after hours services available. Bobbin Presser will remain available as needed. documented as [...] documented as of this encounter Care Teams Programmer Analyst Relationship Specialty Start Date End Date Winston Villatoro OD [facility] [place] [address] [place] [address] PCP - Ophthalmology Ophthalmology 02/11/13 Denise Woodson Ra, APRN RETAIL SUPERVISOR [address] [address] PCP - General Family Practice 09/21/20 Denise Woodson Ra, APRN RETAIL SUPERVISOR [address] [address] [address] Assigned PCP 07/17/20 Usha Simon APRN RETAIL SUPERVISOR 9[address] [facility] [place] [address] Nurse Practitioner Neurological Surgery 01/24/24 Dangelo Salinas MD [address] [place] [address] Neurology 01/27/24 Anastasia Stearns, RN Lead Bobbin Presser 02/06/24 Germaine Lopez, [facility] Community Health Worker Primary Care - CC 02/18/24 Robin Zepeda MD [address] [facility] [place] [address] Assigned Neuroscience Provider 03/08/24 05/07/24 documented as of this encounter
--- OUTSIDE RECORDS SUMMARY | 2024-05-17 01:24 | XMS_ITS | Encounter Summary ---
Author Organization [facility] Address [address] [place] [address]. [place] [address] Care Team Providers Care Nuclear Equipment Research Engineer Name Role Phone Winston Villatoro OD Unavailable [phone] Denise Woodson Ra, APRN COVERAGE SPECIALIST RN Unavailable + [phone] Denise Woodson Ra, APRN COVERAGE SPECIALIST RN Primary Care Provid er Usha Simon APRN COVERAGE SPECIALIST RN Unavailable + [phone] Dangelo Salinas MD Unavailable Anastasia Stearns RN Unavailable [phone] Germaine Lopez CHW Unavailable [phone] Robin Zepeda MD Unavailable [phone] Reason for Visit * Reason Comments Follow Up Encounter Details Date Type Department Care Team (Latest Contact Info) Description 04/13/2024 12:00 PM CDT Virtual Visit [facility] [address] [place] [address] Denise Woodson [place] [address] [place] [address] Cerebrovascular accident (CVA), unspecified mechanism [...] How often do you attend jain or islam serv ices? Never 02/28/2024 Do you belong [...] Answer Date Recorded PHQ-2 Score 1 04/14/2024 [facility] of Occupat ional [...] encounter Progress Notes * Denise Woodson Ra, SILVICULTURE PROFESSOR COVERAGE SPECIALIST RN - 04/13/2024 12:00 PM CDT Alcon is a 48 year old who is being evaluated via a billable video visit. How would you like to obtain your AVS? MyChart If the video visit is dropped, the invitation should be resent by: Text to cell phone: [phone] Will anyone else be joining your video [...] Description 05/26/2024 8:30 AM CDT Office Visit [facility] [address] [place] [address] Denise Woodson Ra, APRN CNP [address] [place] [address] 06/08/2024 8:30 AM CDT [facility] [address] [place] [phone] Denise Woodson Ra, S[place]IC[place]URE [place] [address] [facility] [place] [address] 06/26/2024 2:40 PM CDT Office Visit [facility] [address] [facility] [address] [place] [phone] Danna Cardenas PA-C 6405 [place], [place] [address] documented as of this encounter Goals Goal [...] Mental Health weekly - PT, OT and PRIMER PRESS OPERATOR - PCP appointment 05/26/24 & 06/08/24 - Stroke Neurology Dr. Hoyos 04/14/24 #[phone] - Epilepsy Neurology Dr. Barcenas 05/05/24 follow up recommended in 2 months: 07/05/24 TBD. #[phone] - Vascular Dr. Zambrano 05/01/24 - follow up recommended in 6 months: 11/11/24 TBD #[phone]. - MTM if covered by insurance TBD [...] clinic with 24/ after hours services available. Senior Category Manager will remain available as needed. documented as of this encounter Visit Diagnoses Diagnosis Cerebrovascular accident (CVA), unspecified mechanism (H)- Primary documented in this encounter Additional Health Concerns Active Problems Noted Date Diagnosed Date Increased risk of re-admission 02/18/2024 Assessment Noted Time PHQ-9 Depression Total Score: 5 03/17/20 24 9:45 AM CDT documented as of this encounter Care Teams Nuclear Equipment Research Engineer Relationship Specialty Start Date End Date Winston Villatoro OD [facility] [place] [address] [place] [address] PCP - Ophthalmology Ophthalmology 02/11/13 Denise Woodson [place] [address] [place] [address] PCP - General Family Practice 09/21/20 Denise Woodson [place] [address] [place] [address] Assigned PCP 07/17/20 Usha Simon APRN COVERAGE SPECIALIST RN [address] [place] [address] Nurse Practitioner Neurological Surgery 01/24/24 Dangelo Salinas MD [address] [place] [address] Neurology 01/27/24 Anastasia Stearns, RN Lead Senior Category Manager 02/06/24 Germaine Lopez, CHW Community Health Worker Primary Care - CC 02/18/24 Robin Zepeda MD [address] [place] [address] Assigned Neuroscience Provider 03/08/24 05/07/24 documented as of this encounter
--- OUTSIDE RECORDS SUMMARY | 2024-05-17 01:24 | XMS_ITS | Encounter Summary ---
Author Organization [facility] Address [address] [place] [address] Care Team Providers Care Crayon Sorting Machine Feeder Name Role Phone ShaunaWinston OD Unavailable [phone] Denise Woodson Ra, APRN WATCH PARTS GRINDER Unavailable [phone] Denise Woodson Ra, APRN WATCH PARTS GRINDER Primary Care Provid er Usha Simon APRN WATCH PARTS GRINDER Unavailable [phone] Dangelo Salinas MD Unavailable Anastasia Stearns RN Unavailable [phone] Germaine Lopez CHW Unavailable [phone] Robin Zepeda MD Unavailable [phone] Encounter Details Date Type Department Care Team [...] How often do you attend bahai or methodist serv ices? Never 02/28/2024 Do [...] 8:30 AM CDT Office Visit [facility] [address] [place] [phone] Denise Woodson Ra, DAYCARE DIRECTOR WATCH PARTS GRINDER [address] [place], [place] [address] 06/08/2024 8:30 AM CDT Office Visit [facility] [address] [place] [phone] Denise Woodson Ra, DAYCARE DIRECTOR WATCH PARTS GRINDER [address] [place] [address] 06/26/2024 2:40 PM CDT Office Visit [facility] 6[address] [facility] [address] [place] [phone] Danna Cardenas PA-C [address] [place], [place] [address] documented as of this encounter Goals Goal [...] Mental Health weekly - PT, OT and PHYSICAL CHEMISTRY PROFESSOR - PCP appointment 05/26/24 & 06/08/24 - Stroke Neurology Dr. Hoyos 04/14/24 #[phone] - Epilepsy Neurology Dr. Barcenas 05/05/24 follow up recommended in 2 months: 07/05/24 TBD. #[phone] - Vascular Dr. Zambrano 05/01/24 - follow up recommended in 6 months: 11/11/24 TBD #[phone]. - MTM if covered by insurance TBD [...] clinic with 24/7 after hours services available. Group Fitness Department Head will remain available as needed. documented as of this encounter Visit Diagnoses Not on filedocumented in this encounter Additional Health Concerns Active Problems Noted Date Diagnosed Date Increased risk of re-admission 02/18/2024 Assessment Noted Time PHQ-9 Depression Total Score: 5 03/17/20 9:45 AM CDT documented as of this encounter Care Teams Crayon Sorting Machine Feeder Relationship Specialty Start Date End Date Winston Villatoro OD [facility] [place] [address] [place] [address] PCP - Ophthalmology Ophthalmology 02/11/13 Denise Woodson Ra, DAYCARE DIRECTOR WATCH PARTS GRINDER [address] [address] PCP - General Family Practice 09/21/20 Denise Woodson Ra, APRN WATCH PARTS GRINDER [address] [address] [address] Assigned PCP 07/17/20 Usha Simon APRN WATCH PARTS GRINDER [address] [place] [address] [address] Nurse Practitioner Neurological Surgery 01/24/24 Dangelo Salinas MD [address] [place] [address] Neurology 01/27/24 Anastasia Stearns, RN Lead Group Fitness Department Head 02/06/24 Germaine Lopez, W Community Health Worker Primary Care - CC 02/18/24 Robin Zepeda MD [address] [address] Assigned Neuroscience Provider 03/08/24 05/07/24 documented as of this encounter
--- OUTSIDE RECORDS SUMMARY | 2024-05-17 01:24 | XMS_ITS | Encounter Summary ---
Author Organization [facility] Address [address] [place] [address] Care Team Providers Care Silver Spray Worker Name Role Phone Winston Villatoro OD Unavailable [phone] Denise Woodson Ra, APRN BEREAVEMENT COUNSELOR Unavailable [phone] Denise Woodson Ra, APRN BEREAVEMENT COUNSELOR Primary Care Provid er Usha Simon APRN BEREAVEMENT COUNSELOR Unavailable [phone] Dangelo Salinas MD Unavailable Anastasia Stearns RN Unavailable [phone] Germaine Lopez CHW Unavailable [phone] Robin Zepeda MD Unavailable [phone] Reason for Visit * Rehab Therapy Integrated Services (Routine) - Authorized Specialty Diagnoses / Procedures Referred By Nila shah Referred To Contact Diagnoses Cerebrovascular accident (CVA), unspecified mechanism (H) [address] [address] Referral ID Status Reason Start Date Expiration Date V isits Requested Visits Authorized [id number] Authorized 09/16/2023 09/15/2024 365 365 Encounter Details Date Type Department Care Team (Late st Contact Info) Description 04/15/2024 9:30 AM CDT Therapy Visit [address] [phone] Danya You, AMAIRANI [address] [place] [address] [address] [place] [address] Danya Restrepo, HEALTH SOCIAL WORK PROFESSOR Cognitive communication deficit (Primary Dx); Cerebrovascular accident [...] often do you attend oriental orthodox or sikh serv ices? Never 02/28/2024 Do [...] Answer Date Recorded PHQ-2 Score 1 04/14/2024 [facility] [place] of Occupat ional Health - Occupational Stress [...] 05/26/2024 8:30 AM CDT Office Visit [facility] [address] [place] [address] Denise Woodson Ra, COTTON CHOPPER [facility] [address] [place] [address] 06/08/2024 8:30 AM CDT [facility] [address] [place] [address] Chintan Denise Ra, COTTON CHOPPER BEREAVEMENT COUNSELOR [address] [place], [place] [address] 06/26/2024 2:40 PM CDT Office Visit [facility] [address] [facility] [address] [place] [address] Danna Cardenas PA-C 6405 [place], [place] [address] documented as of this encounter Goals Goal [...] Health weekly - PT, OT and HEALTH SOCIAL WORK PROFESSOR - PCP appointment 05/26/24 & 06/08/24 - Stroke Neurology Dr. Hoyos 04/14/24 #[phone] - Epilepsy Neurology Dr. Barcenas 05/05/24 follow up recommended in 2 months: 07/05/24 TBD. #[phone] - Vascular Dr. Zambrano 05/01/24 - follow up recommended in 6 months: 11/11/24 TBD #[phone]. - MTM if covered by insurance TBD [...] clinic with 24/7 after hours services available. Engineering Project Manager will remain available as needed. [...] as of this encounter Care Teams Silver Spray Worker Relationship Specialty Start Date End Date ShaunaWinston OD [facility] [address] [facility] [address] [place] [address] PCP - Ophthalmology Ophthalmology 02/11/13 Denise Woodson Ra, APRN BEREAVEMENT COUNSELOR [address] [place] [address] PCP - General Family Practice 09/21/20 Denise Woodson Ra, APRN BEREAVEMENT COUNSELOR [address] [place] [address] Assigned PCP 07/17/20 Usha Simon APRN BEREAVEMENT COUNSELOR 9[address] [facility], [place] [address] Nurse Practitioner Neurological Surgery 01/24/24 Dangelo Salinas MD [address] [place] [address] Neurology 01/27/24 Anastasia Stearns, RN Lead Engineering Project Manager 02/06/24 Germaine Lopez, CHW Community Health Worker Primary Care - CC 02/18/24 Robin Zepeda MD [address]09 [facility] [place] [address] Assigned Neuroscience Provider 03/08/24 05/07/24 documented as of this encounter
--- OUTSIDE RECORDS SUMMARY | 2024-05-17 01:25 | XMS_ITS | Encounter Summary ---
Author Organization [facility] Address [address] [place] [address] Care Team Providers Care Soil Conservation Teacher Name Role Phone Winston Villatoro OD Unavailable Denise Woodson Ra, APRN RN MEDICAL SURGICAL Unavailable [phone] Denise Woodson Ra, APRN RN MEDICAL SURGICAL Primary Care Provid er Usha Simon APRN RN MEDICAL SURGICAL Unavailable [phone] Dangelo Salinas MD Unavailable Anastasia Stearns RN Unavailable [phone] Germaine Lopez CHW Unavailable Robin Zepeda MD Unavailable [phone] Reason for Visit * Rehab Therapy Integrated Services (Routine) - Authorized Specialty Diagnoses / Procedures Referred By Nila shah Referred To Contact Diagnoses Cerebrovascular accident (CVA), unspecified mechanism (H) [address] [address] Referral ID Status Reason Start Date Expiration Date V isits Requested Visits Authorized [id number] Authorized 09/16/2023 09/15/2024 365 365 Encounter Details Date Type Department Care Team (Late st Contact Info) Description 04/02/2024 3:15 PM CDT Therapy Visit [address] [phone] Danya You, AMAIRANI [address] [place] [address] [address] [place] [address] Charis Chacon, [facility] [address] [place] [address] Cognitive communication deficit (Primary Dx); Cerebrovascular accident [...] How often do you attend hoahaoism or restorationism serv ices? Never 02/28/2024 Do [...] Answer Date Recorded PHQ-2 Score 0 03/17/2024 [facility] [place] of Occupat ional Health - Occupational Stress [...] Description 05/26/2024 8:30 AM CDT Office Visit [facility] [address] [place] [address] Denise Woodson Ra, PEAR PICKER RN MEDICAL SURGICAL [address] [place] [address] 06/08/2024 8:30 AM CDT [facility] [address] [place] [phone] Denise Woodson Ra, APRN RN MEDICAL SURGICAL [address] [place] [address] 06/26/2024 2:40 PM CDT Office Visit [facility] 6[address] [facility] [address] [place] [address] Danna Cardenas PA-C 6405 [place] [address] documented as of this encounter Goals Goal [...] Health weekly - PT, OT and CUSTOMER SALES CONSULTANT - PCP appointment 05/26/24 & 06/08/24 - Stroke Neurology Dr. Hoyos 04/14/24 #[phone] - Epilepsy Neurology Dr. Barcenas 05/05/24 follow up recommended in 2 months: 07/05/24 TBD. #[phone] - Vascular Dr. Zambrano 05/01/24 - follow up recommended in 6 months: 11/11/24 TBD #[phone]. - MTM if covered by insurance TBD [...] clinic with 24/7 after hours services available. Therapeutic Assistant will remain available as needed. documented as of this encounter Visit Diagnoses Diagnosis Cognitive communication deficit- Primary Cerebrovascular accident (CVA), unspecified mechanism (H) documented in this encounter Additional Health Concerns Active Problems Noted Date Diagnosed Date Increased risk of re-admission 02/18/2024 Assessment Noted Time PHQ-9 Depression Total Score: 5 03/17/20 24 9:45 AM CDT documented as of this encounter Care Teams Soil Conservation Teacher Relationship Specialty Start Date End Date Winston Villatoro OD [facility] 701 [facility] [address] [place] [address] PCP - Ophthalmology Ophthalmology 02/11/13 Denise Woodson Ra, APRN RN MEDICAL SURGICAL [address] [place] [address] PCP - General Family Practice 09/21/20 Denise Woodson Ra, APRN RN MEDICAL SURGICAL [address] [place] [address] Assigned PCP 07/17/20 Usha Simon APRN RN MEDICAL SURGICAL 9 [facility] [id number] [place] [address] Nurse Practitioner Neurological Surgery 01/24/24 Dangelo Salinas MD [address] [place] [address] Neurology 01/27/24 Anastasia Stearns, RN Lead Therapeutic Assistant 02/06/24 Germaine Lopez, W Community Health Worker Primary Care - CC 02/18/24 Robin Zepeda MD 909 [facility] [place], [place] [address] Assigned Neuroscience Provider 03/08/24 05/07/24 documented as of this encounter
--- OUTSIDE RECORDS SUMMARY | 2024-05-17 01:25 | XMS_ITS | Encounter Summary ---
Author Organization [place] Address [address] [place] [address] Care Team Providers Care Caponizer Name Role Phone Winston Villatoro OD Unavailable [phone] Denise Woodson Ra, APRN PLAYGROUND ATTENDANT Unavailable [phone] Denise Woodson Ra, APRN PLAYGROUND ATTENDANT Primary Care Provid er Usha Simon APRN PLAYGROUND ATTENDANT Unavailable [phone] Dangelo Salinas MD Unavailable Anastasia Stearns RN Unavailable [phone] Germaine Lopez CHW Unavailable [phone] Robin Zepeda MD Unavailable [phone] Reason for Visit * Rehab Therapy Integrated Services (Routine) - Authorized Specialty Diagnoses / Procedures Referred By Nila shah Referred To Contact Diagnoses Cerebrovascular accident (CVA), unspecified mechanism (H) [address] [address] Referral ID Status Reason Start Date Expiration Date V isits Requested Visits Authorized [id number] Authorized 09/16/2023 09/15/2024 365 365 Encounter Details Date Type Department Care Team (Late st Contact Info) Description 03/26/2024 1:30 PM CDT Therapy Visit [address] [phone] Danya You, AMAIRANI [address] [place] [address] [address] [place] [address] Isabel Beaulieu, OTR [address] [address] Cerebrovascular accident (CVA), unspecified mechanism (H) (Primary [...] How often do you attend gnosticism or latter-day serv ices? Never 02/28/2024 Do [...] Answer Date Recorded PHQ-2 Score 0 03/17/2024 [facility] of Occupat ional Health - Occupational Stress [...] AM CDT Office Visit [facility] [address] [place] [address] Denise Woodson Ra, CLEANER OPERATOR PLAYGROUND ATTENDANT [address] [place] [address] 06/08/2024 8:30 AM CDT [facility] [address] [place] [address] ChintanDenise munroe Ra, CLEANER OPERATOR PLAYGROUND ATTENDANT [address] [place] [address] 06/26/2024 2:40 PM CDT Office Visit [facility] 6405 [facility] [address] [place] [address] Danna Cardenas PA-C 6405 [place], [place] [address] documented as of this encounter Goals Goal [...] Mental Health weekly - PT, OT and SINGER SONGWRITER - PCP appointment 05/26/24 & 06/08/24 - Stroke Neurology Dr. Hoyos 04/14/24 #[phone] - Epilepsy Neurology Dr. Barcenas 05/05/24 follow up recommended in 2 months: 07/05/24 TBD. #[phone] - Vascular Dr. Zambrano 05/01/24 - follow up recommended in 6 months: 11/11/24 TBD #[phone]. - MTM if covered by insurance TBD [...] clinic with 24/7 after hours services available. Pottery Decorator will remain available as needed. documented as of this encounter Visit Diagnoses Diagnosis Cerebrovascular accident (CVA), unspecified mechanism (H)- Primary documented in this encounter Additional Health Concerns Active Problems Noted Date Diagnosed Date Increased risk of re-admission 02/18/2024 Assessment Noted Time PHQ-9 Depression Total Score: 5 03/17/20 24 9:45 AM CDT documented as of this encounter Care Teams Caponizer Relationship Specialty Start Date End Date Winston Villatoro OD [facility] 701 [facility] 95 [place] [address] PCP - Ophthalmology Ophthalmology 02/11/13 Denise Woodson Ra, APRN PLAYGROUND ATTENDANT [address] [place] [address] PCP - General Family Practice 09/21/20 Denise Woodson Ra, APRN PLAYGROUND ATTENDANT [address] [place] [address] Assigned PCP 07/17/20 Usha Simon APRN PLAYGROUND ATTENDANT 909 [facility] [id number] [address] Nurse Practitioner Neurological Surgery 01/24/24 Dangelo Salinas MD [address] [facility] [address] [id number] Neurology 01/27/24 Anastasia Stearns, RN Lead Pottery Decorator 02/06/24 Germaine Lopez, CHW Community Health Worker Primary Care - CC 02/18/24 Robin Zepeda MD 9 [facility], [place] [address] Assigned Neuroscience Provider 03/08/24 05/07/24 documented as of this encounter
--- OUTSIDE RECORDS SUMMARY | 2024-05-17 01:25 | XMS_ITS | Encounter Summary ---
Author Organization [place] Address [address] [place] [address] Care Team Providers Care Statistical Consultant Name Role Phone ShaunaWinston OD Unavailable [phone] Denise Woodson Ra, APRN NETWORK MANAGEMENT SPECIALIST Unavailable [phone] Denise Woodson Ra, APRN NETWORK MANAGEMENT SPECIALIST Primary Care Provid er Usha Simon APRN NETWORK MANAGEMENT SPECIALIST Unavailable [phone] Dangelo Salinas MD Unavailable Anastasia Stearns RN Unavailable [phone] Germaine Lopez CHW Unavailable Robin Zepeda MD Unavailable [phone] Encounter Details Date Type Department Care Team [...] How often do you attend yarsani or adventism serv ices? Never 02/28/2024 Do [...] Answer Date Recorded PHQ-2 Score 0 03/17/2024 [facility] of Occupat ional [...] CDT Office Visit [facility] [address] [place] [address] Denise Woodson Ra, SHERIFF'S OFFICER NETWORK MANAGEMENT SPECIALIST [address] [place], [place] [address] 06/08/2024 8:30 AM CDT Office Visit [facility] [address] [place] [address] Denise Woodson Ra, SHERIFF'S OFFICER NETWORK MANAGEMENT SPECIALIST [address] [place] [address] 06/26/2024 2:40 PM CDT Office Visit [facility] 6405 [facility] [address] [place] [address] Danna Cardenas PA-C 5045 [place], [place] [address] documented as of this encounter Goals Goal [...] Health weekly - PT, OT and FIELD SUPPORT REP - PCP appointment 05/26/24 & 06/08/24 - Stroke Neurology Dr. Hoyos 04/14/24 #[phone] - Epilepsy Neurology Dr. Barcenas 05/05/24 follow up recommended in 2 months: 07/05/24 TBD. #[phone] - Vascular Dr. Zambrano 05/01/24 - follow up recommended in 6 months: 11/11/24 TBD #[phone]. - MTM if covered by insurance TBD [...] clinic with 24/7 after hours services available. Barrel Waterer will remain available as needed. documented as [...] Villatoro OD [facility] [place] [address] [place] [address] PCP - Ophthalmology Ophthalmology 02/11/13 Denise Woodson Ra, SHERIFF'S OFFICER NETWORK MANAGEMENT SPECIALIST [address] [place] [address] PCP - General Family Practice 09/21/20 Denise Woodson Ra, APRN NETWORK MANAGEMENT SPECIALIST [address] [place] [address] Assigned PCP 07/17/20 Usha Simon APRN NETWORK MANAGEMENT SPECIALIST [address] [place] [address] Nurse Practitioner Neurological Surgery 01/24/24 Dangelo Salinas MD [address] [place] [address] Neurology 01/27/24 Anastasia Stearns, RN Lead Barrel Waterer 02/06/24 Germaine Lopez, W Community Health Worker Primary Care - CC 02/18/24 Robin Zepeda MD [address] [address] Assigned Neuroscience Provider 03/08/24 05/07/24 documented as of this encounter
--- OUTSIDE RECORDS SUMMARY | 2024-05-17 01:25 | XMS_ITS | Encounter Summary ---
Author Organization [place] Address [address] [place] [address] Care Team Providers Care Scanning Coordinator Name Role Phone Winston Villatoro OD Unavailable [phone] Denise Woodson Ra, APRN SKIN TOGGLER Unavailable [phone] Denise Woodson Ra, APRN SKIN TOGGLER Primary Care Provid er Usha Simon APRN SKIN TOGGLER Unavailable [phone] Dangelo Salinas MD Unavailable Anastasia Stearns RN Unavailable Germaine Lopez CHW Unavailable Robin Zepeda MD Unavailable Reason for Referral * Diagnostic Imaging CT Scan (Routine) - Closed Specialty Diagnoses / Procedures Referred By Contac t Referred To Contact Radiology. Diagnoses Fibromuscular dysplasia (H24) Procedures CTA Chest Abdomen Pelvis w Contrast Denise Woodson Ra, APRN SKIN TOGGLER [address] [place] [address] Referral ID Status Reason Start Date Expiration Date Visits Re quested Visits Authorized [id number] Closed 02/06/2024 02/05/2025 1 1 Reason for Visit * Diagnostic Imaging CT Scan (Routine) - Closed Specialty Diagnoses / Procedures Referred By Contac t Referred To Contact Radiology. Diagnoses Fibromuscular dysplasia (H24) Procedures CTA Chest Abdomen Pelvis w Contrast Denise Woodson Ra, APRN SKIN TOGGLER [address] [place] [address] Referral ID Status Reason Start Date Expiration Date Visits Re quested Visits Authorized [id number] Closed 02/06/2024 02/05/2025 1 1 Encounter Details Date Type Department Care Team (Latest Contact Info) Description 03/18/2024 1:21 PM CDT - 03/18/2024 11:59 PM CDT Hospital Encounter [facility] [address] [place] [address] [place] [address] Denise Woodson Ra, APRN CNP [address] [place] [address] Fibromuscular dysplasia (H24) Discharge Disposition: Home or [...] How often do you attend methodist or voodoo serv ices? Never 02/28/2024 Do [...] Answer Date Recorded PHQ-2 Score 0 03/17/2024 [facility] of Occupat ional Health - Occupational [...] Take 10 mg by mouth at bedtime. Lidocaine (LIDOCARE) 4 % PatchIndications:Fibr omyalgia,Pain of [...] 2 TIMES DAILY 60 tablet 03/06/2024 04/01/2024 magnesium oxide 200 MG TABS Ok to take magnesium supplement of your preference 01/24/2024 05/14/2024 documented as of this encounter Plan of Treatment Upcoming Encounters Date Type Department Care Team (Late st Contact Info) Description 05/26/2024 8:30 AM CDT Office Visit [facility] [address] [place] [phone] Denise Woodson Ra, RETAIL TRAINING MANAGER SKIN TOGGLER [address] [place], [place] [address] 06/08/2024 8:30 AM CDT [facility] [address] [place] [address] Denise Woodson Ra, RETAIL TRAINING MANAGER SKIN TOGGLER [address] [place] [address] 06/26/2024 2:40 PM CDT Office Visit [facility] 6405 [facility] [address] [place] [phone] Danna Cardenas PA-C 5855 [facility] [place] [address] documented as of this encounter Goals Goal [...] Mental Health weekly - PT, OT and LINING REPAIRER - PCP appointment 05/26/24 & 06/08/24 - Stroke Neurology Dr. Hoyos 04/14/24 #[phone] - Epilepsy Neurology Dr. Barcenas 05/05/24 follow up recommended in 2 months: 07/05/24 TBD. #[phone] - Vascular Dr. Zambrano 05/01/24 - follow up recommended in 6 months: 11/11/24 TBD #[phone]. - MTM if covered by insurance TBD [...] clinic with 24/7 after hours services available. Medical Insurance Claims Specialist will remain available as needed. documented [...] Denise Woodson APRN, CNP IMG CT ORDER NARSIN documented in this encounter Visit Diagnoses Diagnosis [...] OD [facility] [place] [address] [place] [address] PCP - Ophthalmology Ophthalmology 02/11/13 Denise Woodson Ra, APRN CNP [address] [place] [address] PCP - General Family Practice 09/21/20 Denise Woodson Ra, APRN SKIN TOGGLER [address] [place] [address] Assigned PCP 07/17/20 Usha Simon APRN SKIN TOGGLER [address] [address] Nurse Practitioner Neurological Surgery 01/24/24 Dangelo Salinas MD [address] [place] [address] Neurology 01/27/24 Anastasia Stearns, RN Lead Medical Insurance Claims Specialist 02/06/24 Germaine Lopez, W Community Health Worker Primary Care - CC 02/18/24 Robin Zepeda MD [address] [address] Assigned Neuroscience Provider 03/08/24 05/07/24 documented as of this encounter
--- OUTSIDE RECORDS SUMMARY | 2024-05-17 01:25 | XMS_ITS | Encounter Summary ---
Author Organization [place] Address [address] [place] [address] Care Team Providers Care Programs Assistant Name Role Phone Winston Villatoro OD Unavailable [phone] Denise Woodson Ra, APRN CHAIN MAKER HAND Unavailable [phone] Denise Woodson Ra, APRN CHAIN MAKER HAND Primary Care Provid er Usha Simon APRN CHAIN MAKER HAND Unavailable [phone] Dangelo Salinas MD Unavailable Anastasia Stearns RN Unavailable [phone] Germaine Lopez CHW Unavailable [phone] Robin Zepeda MD Unavailable [phone] Reason for Visit * Rehab Therapy Integrated Services (Routine) - Authorized Specialty Diagnoses / Procedures Referred By Nila shah Referred To Contact Diagnoses Cerebrovascular accident (CVA), unspecified mechanism (H) [address] [address] Referral ID Status Reason Start Date Expiration Date V isits Requested Visits Authorized [id number] Authorized 09/16/2023 09/15/2024 365 365 Encounter Details Date Type Department Care Team (Late st Contact Info) Description 03/17/2024 1:30 PM CDT Therapy Visit [address] [phone] Danya You, AMAIRANI [address] [place] [address] 213 [place] [address] Isabel Beaulieu, OTR [address] [address] Cerebrovascular accident (CVA), unspecified mechanism (H) (Primary [...] Never 02/28/2024 How often do you attend druze or latter-day serv ices? Never 02/28/2024 Do you belong to any clubs o r organizations such as druze groups, unions, fraternal or athletic groups, or [...] Answer Date Recorded PHQ-2 Score 0 03/17/2024 [facility] of Occupat ional Health - Occupational Stress [...] Office Visit [facility] [address] [place] [address] Denise Woodson Ra, NETWORK SECURITY OFFICER CHAIN MAKER HAND [address] [place] [address] 06/08/2024 8:30 AM CDT [facility] [address] [place] [address] ChintanDenise munroe Ra, NETWORK SECURITY OFFICER CHAIN MAKER HAND [address] [place] [address] 06/26/2024 2:40 PM CDT Office Visit [facility] 6[address] [facility] [address] [place] [address] Danna Cardenas PA-C 6405 [place], [place] [address] documented as of this encounter Goals Goal [...] Mental Health weekly - PT, OT and COMMERCIAL HORTICULTURE INSTRUCTOR - PCP appointment 05/26/24 & 06/08/24 - Stroke Neurology Dr. Hoyos 04/14/24 #[phone] - Epilepsy Neurology Dr. Barcenas 05/05/24 follow up recommended in 2 months: 07/05/24 TBD. #[phone] - Vascular Dr. Zambrano 05/01/24 - follow up recommended in 6 months: 11/11/24 TBD #[phone]. - MTM if covered by insurance TBD [...] clinic with 24/7 after hours services available. Stratigrapher will remain available as needed. documented as of this encounter Visit Diagnoses Diagnosis Cerebrovascular accident (CVA), unspecified mechanism (H)- Primary documented in this encounter Additional Health Concerns Active Problems Noted Date Diagnosed Date Increased risk of re-admission 02/18/2024 Assessment Noted Time PHQ-9 Depression Total Score: 5 03/17/20 24 9:45 AM CDT documented as of this encounter Care Teams Programs Assistant Relationship Specialty Start Date End Date Winston Villatoro OD [facility] 701 [facility] 95 [place] [address] PCP - Ophthalmology Ophthalmology 02/11/13 Denise Woodson Ra, APRN CHAIN MAKER HAND [address] [place] [address] PCP - General Family Practice 09/21/20 Denise Woodson Ra, APRN CHAIN MAKER HAND [address] [place] [address] Assigned PCP 07/17/20 Usha Simon APRN CHAIN MAKER HAND 909 [facility] [id number] [place] [address] Nurse Practitioner Neurological Surgery 01/24/24 Dangelo Salinas MD [address] [facility] [address] [id number] Neurology 01/27/24 Anastasia Stearns, RN Lead Stratigrapher 02/06/24 Germaine Lopez, CHW Community Health Worker Primary Care - CC 02/18/24 Robin Zepeda MD 9 [facility]121[place], [place] [address] Assigned Neuroscience Provider 03/08/24 05/07/24 documented as of this encounter
--- OUTSIDE RECORDS SUMMARY | 2024-05-17 01:25 | XMS_ITS | Encounter Summary ---
Author Organization [place] Address [address] [place] [address] Care Team Providers Care Flexo Press Operator Name Role Phone ShaunaWinston moralez OD Unavailable Denise Woodson Ra, APRN MISSION MANAGER Unavailable [phone] Denise Woodson Ra, APRN MISSION MANAGER Primary Care Provid er Usha Simon APRN MISSION MANAGER Unavailable [phone] Dangelo Salinas MD Unavailable Anastasia Stearns RN Unavailable [phone] Germaine Lopez CHW Unavailable [phone] Robin Zepeda MD Unavailable [phone] Encounter Details Date Type Department Care Team [...] Never 02/28/2024 How often do you attend congregational or latter-day serv ices? Never 02/28/2024 Do you belong to any clubs o r organizations such as congregational groups, unions, fraternal or athletic groups, or [...] Date Recorded PHQ-2 Score 0 03/17/2024 [facility] of Occupat ional Health - Occupational [...] AM CDT Office Visit [facility] [address] [place] [address] Denise Woodson Ra, ASSEMBLER CARBON BRUSHES MISSION MANAGER [address] [place], [place] [address] 06/08/2024 8:30 AM CDT Office Visit [facility] [address] [place] [address] Denise Woodson Ra, ASSEMBLER CARBON BRUSHES MISSION MANAGER [address] [place] [address] 06/26/2024 2:40 PM CDT Office Visit [facility] 6405 [facility] [address] [place] [address] Danna Cardenas PA-C 0425 [place], [place] [address] documented as of this encounter Goals Goal [...] Mental Health weekly - PT, OT and PROJECT CONTROL OFFICER - PCP appointment 05/26/24 & 06/08/24 - Stroke Neurology Dr. Hoyos 04/14/24 #[phone] - Epilepsy Neurology Dr. Barcenas 05/05/24 follow up recommended in 2 months: 07/05/24 TBD. #[phone] - Vascular Dr. Zambrano 05/01/24 - follow up recommended in 6 months: 11/11/24 TBD #[phone]. - MTM if covered by insurance TBD [...] clinic with 24/7 after hours services available. Book Coverer will remain available as needed. documented as of this encounter Visit Diagnoses Not on filedocumented in this encounter Additional Health Concerns Active Problems Noted Date Diagnosed Date Increased risk of re-admission 02/18/2024 Assessment Noted Time PHQ-9 Depression Total Score: 5 03/17/20 9:45 AM CDT documented as of this encounter Care Teams Flexo Press Operator Relationship Specialty Start Date End Date Winston Villatoro OD [facility] [place] [address] [place] [address] PCP - Ophthalmology Ophthalmology 02/11/13 Denise Woodson Ra, ASSEMBLER CARBON BRUSHES MISSION MANAGER [address] [place] [address] PCP - General Family Practice 09/21/20 Denise Woodson Ra, APRN MISSION MANAGER [address] [place] [address] Assigned PCP 07/17/20 Usha Simon APRN MISSION MANAGER [address] [place], [place] [address] Nurse Practitioner Neurological Surgery 01/24/24 Dangelo Salinas MD [address] [place] [address] Neurology 01/27/24 Anastasia Stearns, RN Lead Book Coverer 02/06/24 Germaine Lopez, W Community Health Worker Primary Care - CC 02/18/24 Robin Zepeda MD [address] [address] Assigned Neuroscience Provider 03/08/24 05/07/24 documented as of this encounter
--- OUTSIDE RECORDS SUMMARY | 2024-05-17 01:25 | XMS_ITS | Encounter Summary ---
Author Organization [place] Address [address] [place] [address] Care Team Providers Care Pediatric Urologist Name Role Phone Winston Villatoro OD Unavailable [phone] Denise Woodson Ra, APRN HI LO DRIVER Unavailable [phone] Denise Woodson Ra, APRN HI LO DRIVER Primary Care Provid er Usha Simon APRN HI LO DRIVER Unavailable [phone] Dangelo Salinas MD Unavailable Anastasia Stearns RN Unavailable [phone] Germaine Lopez CHW Unavailable Robin Zepeda MD Unavailable [phone] Reason for Visit * Reason Onset Date Comments Clinic Care Coordination - Follow-up 04/02/2024 Encounter Details Date Type Department Care Team (Late st Contact Info) Description 04/02/2024 Telephone [facility] [address] 3rd [place] [address] Raul Hoyos MD [address] [place] [address] [id number] [place] [address] Clinic Care Coordination - Follow-up [...] How often do you attend denominational or rastafari serv ices? Never 02/28/2024 Do [...] Answer Date Recorded PHQ-2 Score 0 03/17/2024 [facility] of Occupat ional Health - Occupational Stress [...] Description 05/26/2024 8:30 AM CDT Office Visit [facility] [address] [place] [address] Denise Woodson Ra, ROOTER OPERATOR HI LO DRIVER [address] [place] [address] 06/08/2024 8:30 AM CDT Office Visit [facility] [address] [place] [phone] Denise Woodson , ROOTER OPERATOR HI LO DRIVER [address] [place] [address] 06/26/2024 2:40 PM CDT Office Visit [facility] 6405 [facility] [address] [place] [address] Danna Cardenas PA-C 6405 [place], [place] [address] documented as of this encounter Goals Goal [...] Mental Health weekly - PT, OT and PILE OPERATOR - PCP appointment 05/26/24 & 06/08/24 - Stroke Neurology Dr. Hoyos 04/14/24 #[phone] - Epilepsy Neurology Dr. Barcenas 05/05/24 follow up recommended in 2 months: 07/05/24 TBD. #[phone] - Vascular Dr. Zambrano 05/01/24 - follow up recommended in 6 months: 11/11/24 TBD #[phone]. - MTM if covered by insurance TBD [...] clinic with 24/ after hours services available. Head Refrigerating Engineer will remain available as needed. documented as of this encounter Visit Diagnoses Not on filedocumented in this encounter Additional Health Concerns Active Problems Noted Date Diagnosed Date Increased risk of re-admission 02/18/2024 Assessment Noted Time PHQ-9 Depression Total Score: 5 03/17/20 24 9:45 AM CDT documented as of this encounter Care Teams Pediatric Urologist Relationship Specialty Start Date End Date Winston Villatoro OD [facility] 701 [facility] [address] [place] [address] PCP - Ophthalmology Ophthalmology 02/11/13 Denise Woodson Ra, APRN HI LO DRIVER [address] [place] [address] PCP - General Family Practice 09/21/20 Denise Woodson Ra, APRN HI LO DRIVER [address] [place] [address] Assigned PCP 07/17/20 Usha Simon APRN HI LO DRIVER 909 [facility], [place] [address] Nurse Practitioner Neurological Surgery 01/24/24 Dangelo Salinas MD [address] [facility] 200 [place], [place] [address] Neurology 01/27/24 Anastasia Stearns, RN Lead Head Refrigerating Engineer 02/06/24 Germaine Lopez, W Community Health Worker Primary Care - CC 02/18/24 Robin Zepeda MD 909 [facility] [address] Assigned Neuroscience Provider 03/08/24 05/07/24 documented as of this encounter
--- OUTSIDE RECORDS SUMMARY | 2024-05-17 01:25 | XMS_ITS | Encounter Summary ---
Author Organization [place] Address [address] [place] [address] Care Team Providers Care Computerized Machine Fabric Cutter Name Role Phone Winston Villatoro OD Unavailable [phone] Denise Woodson Ra, APRN CUSTOMS APPRAISER Unavailable [phone] Denise Woodson Ra, APRN CUSTOMS APPRAISER Primary Care Provid er Usha Simon APRN CUSTOMS APPRAISER Unavailable [phone] Dangelo Salinas MD Unavailable Anastasia Stearns RN Unavailable [phone] Germaine Lopez CHW Unavailable [phone] Robin Zepeda MD Unavailable [phone] Reason for Visit * Rehab Therapy Integrated Services (Routine) - Authorized Specialty Diagnoses / Procedures Referred By Nila shah Referred To Contact Diagnoses Cerebrovascular accident (CVA), unspecified mechanism (H) [address] [address] Referral ID Status Reason Start Date Expiration Date V isits Requested Visits Authorized [id number] Authorized 09/16/2023 09/15/2024 365 365 Encounter Details Date Type Department Care Team (Late st Contact Info) Description 04/02/2024 4:15 PM CDT Therapy Visit [address] [phone] Danya You, AMAIRANI [address] [place] [address] [address] [place] [address] Delicia George, PT [address] [place] [address] Cerebrovascular accident (CVA), unspecified mechanism [...] How often do you attend restorationist or judaism serv ices? Never 02/28/2024 Do [...] Answer Date Recorded PHQ-2 Score 0 03/17/2024 [facility] of Occupat ional Health - Occupational Stress [...] zags in patterns while walking (Z, box, tonto apache, star). Don't push to an increase in [...] Office Visit [facility] [address] [place] [address] Denise Woodson Ra, APRN CUSTOMS APPRAISER [address] [place] [address] 06/08/2024 8:30 AM CDT [facility] [address] [place] [address] Denise Woodson Ra, APRN CUSTOMS APPRAISER [address] [place] [address] 06/26/2024 2:40 PM CDT Office Visit [facility] [address] [facility] [address] [place] [address] Danna Cardenas PA-C 6[address] [place], [place] [address] documented as of this encounter Goals Goal [...] Health weekly - PT, OT and SENIOR SUPPORT ENGINEER - PCP appointment 05/26/24 & 06/08/24 - Stroke Neurology Dr. Hoyos 04/14/24 #[phone] - Epilepsy Neurology Dr. Barcenas 05/05/24 follow up recommended in 2 months: 07/05/24 TBD. #[phone] - Vascular Dr. Zambrano 05/01/24 - follow up recommended in 6 months: 11/11/24 TBD #[phone]. - MTM if covered by insurance TBD [...] with 08/04 after hours services available. Community Liaison Officer will remain available as needed. documented as of this encounter Visit Diagnoses Diagnosis Cerebrovascular accident (CVA), unspecified mechanism (H)- Primary documented in this encounter Additional Health Concerns Active Problems Noted Date Diagnosed Date Increased risk of re-admission 02/18/2024 Assessment Noted Time PHQ-9 Depression Total Score: 5 03/17/20 24 9:45 AM CDT documented as of this encounter Care Teams Computerized Machine Fabric Cutter Relationship Specialty Start Date End Date Winston Villatoro OD [facility] [address] [facility] [address] [place] [address] PCP - Ophthalmology Ophthalmology 02/11/13 Denise Woodson Ra, APRN CUSTOMS APPRAISER [address] [place] [address] PCP - General Family Practice 09/21/20 Denise Woodson Ra, APRN CUSTOMS APPRAISER [address] [place] [address] Assigned PCP 07/17/20 Usha Simon APRN CUSTOMS APPRAISER [address] [place] [id number] Nurse Practitioner Neurological Surgery 01/24/24 Dangelo Salinas MD [address] [place], [place] [id number] Neurology 01/27/24 Anastasia Stearns, RN Lead Community Liaison Officer 02/06/24 Germaine Loepz, W Community Health Worker Primary Care - CC 02/18/24 Robin Zepeda MD [address] [place] [id number] Assigned Neuroscience Provider 03/08/24 05/07/24 documented as of this encounter
--- OUTSIDE RECORDS SUMMARY | 2024-05-17 01:25 | XMS_ITS | Encounter Summary ---
Author Organization [place] Address [address] [place] [address] Care Team Providers Care Rehabilitation Nurse Name Role Phone Winston Villatoro OD Unavailable [phone] Denise Woodson Ra, APRN CONTRACTING EXECUTIVE Unavailable + [phone] Denise Woodson Ra, APRN CONTRACTING EXECUTIVE Primary Care Provid er Usha Simon APRN CONTRACTING EXECUTIVE Unavailable + [phone] Dangelo Salinas MD Unavailable Anastasia Stearns RN Unavailable Germaine Lopez CHW Unavailable [phone] Robin Zepeda MD Unavailable [phone] Lisa Zambrano MD Unavailable + [phone] Raul Hoyos MD Unavailable [phone] Encounter Details Date Type Department Care Team (Late st Contact Info) Description 04/02/2024 [facility] Neurology Clinic [address] 3[address] [place] [address] Liliane Cobos Social History Tobacco [...] How often do you attend mormon or hinduism serv ices? Never 02/28/2024 Do [...] Date Recorded PHQ-2 Score 0 03/17/2024 [facility] of Occupat ional Health - Occupational [...] AM CDT Office Visit [facility] [address] [place] [address] Denise Woodson Ra, APRN CONTRACTING EXECUTIVE [address] [place] [address] 06/08/2024 8:30 AM CDT [facility] [address] [facility] [place] [address] Denise Woodson Ra, APRN CONTRACTING EXECUTIVE [address] [place] [address] 06/26/2024 2:40 PM CDT Office Visit [facility] Heart [address] [place] [address] Danna Cardenas PA-C [address] [facility] [place] [address] documented as of this encounter Goals Goal [...] Mental Health weekly - PT, OT and MUSIC ARTIST - PCP appointment 05/26/24 & 06/08/24 - Stroke Neurology Dr. Hoyos 04/14/24 #[phone] - Epilepsy Neurology Dr. Barcenas 05/05/24 follow up recommended in 2 months: 07/05/24 TBD. #[phone] - Vascular Dr. Zambrano 05/01/24 - follow up recommended in 6 months: 11/11/24 TBD #[phone]. - MTM if covered by insurance TBD [...] clinic with 24/7 after hours services available. Certified Wellness Program Coordinator will remain available as needed. documented as of this encounter Visit Diagnoses Not on filedocumented in this encounter Additional Health Concerns Active Problems Noted Date Diagnosed Date Increased risk of re-admission 02/18/2024 Assessment Noted Time PHQ-9 Depression Total Score: 5 03/17/20 24 9:45 AM CDT documented as of this encounter Care Teams Rehabilitation Nurse Relationship Specialty Start Date End Date Winston Villatoro OD [facility] [address] [place] [address] PCP - Ophthalmology Ophthalmology 02/11/13 Denise Woodson Ra, ENERGY EFFICIENT SITE MANAGER CONTRACTING EXECUTIVE [address] [place] [address] PCP - General Family Practice 09/21/20 Denise Woodson Ra, ENERGY EFFICIENT SITE MANAGER CONTRACTING EXECUTIVE [address] [place] [address] Assigned PCP 07/17/20 Usha Simon APRN CONTRACTING EXECUTIVE [address] 3225[address] Nurse Practitioner Neurological Surgery 01/24/24 Dangelo Salinas MD [address] [place], [place] [id number] Neurology 01/27/24 Anastasia Stearns, RN Lead Certified Wellness Program Coordinator 02/06/24 Germaine Lopez, W Community Health Worker Primary Care - CC 02/18/24 Robin Zepeda MD [address] [id number] Assigned Neuroscience Provider 03/08/24 05/07/24 Lisa Zambrano MD [address] [place] [address] Assigned Heart and Vascular Provider 05/08/24 Raul Hoyos MD 909 [facility] [id number] [address] Assigned Neuroscience Provider 05/08/24 documented as of this encounter
--- OUTSIDE RECORDS SUMMARY | 2024-05-17 01:25 | XMS_ITS | Encounter Summary ---
Author Organization [place] Address [address] [place] [address]. [place] [address] Care Team Providers Care Certified Medical Technician Name Role Phone Winston Villatoro OD Unavailable [phone] Denise Woodson Ra, APRN FORM PRESS OPERATOR Unavailable + [phone] Denise Woodson Ra, APRN FORM PRESS OPERATOR Primary Care Provid er Usha Simon APRN FORM PRESS OPERATOR Unavailable Dangelo Salinas MD Unavailable Anastasia Stearns RN Unavailable Germaine Lopez CHW Unavailable [phone] Robin Zepeda MD Unavailable Reason for Visit * Reason Comments Follow Up Stroke Encounter Details Date Type Department Care Team (Late st Contact Info) Description 03/17/2024 10:00 AM CDT Office Visit [facility] [address] [place] [address] Denise Woodson Ra, APRN FORM PRESS OPERATOR [address] [place] [address] History of seizure (Primary Dx); [...] How often do you attend confucianism or orthodox serv ices? Never 02/28/2024 Do [...] Answer Date Recorded PHQ-2 Score 0 03/17/2024 [facility] of Occupat ional Health - [...] encounter Progress Notes * Denise Woodson Ra, CURATORIAL SPECIALIST FORM PRESS OPERATOR - 03/17/2024 10:00 AM CDT Assessment & [...] her face. She was seen in the [place] ED. Imaging showed no acute stroke. She [...] Description 05/26/2024 8:30 AM CDT Office Visit [place] [phone] Denise Woodson Ra, CURATORIAL SPECIALIST FORM PRESS OPERATOR [address] [place], [place] [address] 06/08/2024 8:30 AM CDT Office Visit [facility] [address] [place] [address] Denise Woodson Ra, CURATORIAL SPECIALIST FORM PRESS OPERATOR [address] [place] [address] 06/26/2024 2:40 PM CDT Office Visit [facility] [address] [facility] [address] [place] [phone] Danna Cardenas PA-C 6405 [place], [place] [address] documented as of this encounter Goals Goal [...] Health weekly - PT, OT and FINANCIAL SALES ASSISTANT - PCP appointment 05/26/24 & 06/08/24 - Stroke Neurology Dr. Hoyos 04/14/24 #[phone] - Epilepsy Neurology Dr. Barcenas 05/05/24 follow up recommended in 2 months: 07/05/24 TBD. #[phone] - Vascular Dr. Zambrano 05/01/24 - follow up recommended in 6 months: 11/11/24 TBD #[phone]. - MTM if covered by insurance TBD [...] clinic with 24/7 after hours services available. Patient Scheduling Manager will remain available as needed. documented as of this encounter Visit Diagnoses Diagnosis History of seizure- Primary Cerebrovascular accident (CVA), unspecified mechanism (H) documented in this encounter Additional Health Concerns Active Problems Noted Date Diagnosed Date Increased risk of re-admission 02/18/2024 Assessment Noted Time PHQ-9 Depression Total Score: 5 03/17/20 24 9:45 AM CDT documented as of this encounter Care Teams Certified Medical Technician Relationship Specialty Start Date End Date Winston Villatoro OD [facility] [address] [facility] [address] [place] [address] PCP - Ophthalmology Ophthalmology 02/11/13 Denise Woodson Ra, APRN FORM PRESS OPERATOR [address] [place] [address] PCP - General Family Practice 09/21/20 Denise Woodson Ra, APRN FORM PRESS OPERATOR [address] [place] [address] Assigned PCP 07/17/20 Usha Simon APRN FORM PRESS OPERATOR 909 [facility] [id number] [place], [place] [address] Nurse Practitioner Neurological Surgery 01/24/24 Dangelo Salinas MD [address] [place] [address] Neurology 01/27/24 Anastasia Stearns, RN Lead Patient Scheduling Manager 02/06/24 Germaine Lpoez, W Community Health Worker Primary Care - CC 02/18/24 Robin Zepeda MD 909 [facility] [place] [address] Assigned Neuroscience Provider 03/08/24 05/07/24 documented as of this encounter
--- OUTSIDE RECORDS SUMMARY | 2024-05-17 01:25 | XMS_ITS | Encounter Summary ---
Author Organization [place] Address [address] [place] [address]. [place] [address] Care Team Providers Care Training Executive Name Role Phone Winston Villatoro OD Unavailable [phone] Denise Woodson Ra, APRN SAW HANDLE ASSEMBLER Unavailable + [phone] Denise Woodson Ra PUMPER BREWERY SAW HANDLE ASSEMBLER Primary Care Provid er Usha Simon APRN SAW HANDLE ASSEMBLER Unavailable Dangelo Salinas MD Unavailable Anastasia Stearns RN Unavailable Germaine Lopez CHW Unavailable Robin Zepeda MD Unavailable Reason for Visit * Reason Comments Medication Refill Encounter Details Date Type Department Care Team (Late st Contact Info) Description 03/31/2024 Refill [facility] [address] [place] [address] Denise Woodson Ra, APRN SAW HANDLE ASSEMBLER [address] [place] [address] Medication Refill Social History Tobacco [...] How often do you attend protestant or buddhist serv ices? Never 02/28/2024 Do [...] Answer Date Recorded PHQ-2 Score 0 03/17/2024 [facility] of Occupat ional Health - Occupational [...] Office Visit [facility] [address] [place] [address] Denise Woodson Ra, APRN SAW HANDLE ASSEMBLER [address] [place] [address] 06/08/2024 8:30 AM CDT Office Visit [facility] [address] [place] [address] Denise Woodson Ra, APRN SAW HANDLE ASSEMBLER [address] [place] [address] 06/26/2024 2:40 PM CDT Office Visit [facility] Heart [address] [place] [address] Danna Cardenas PA-C 6405 [facility] [place] [address] documented as of this encounter Goals Goal [...] Mental Health weekly - PT, OT and STATION ENGINEER CHIEF - PCP appointment 05/26/24 & 06/08/24 - Stroke Neurology Dr. Hoyos 04/14/24 #[phone] - Epilepsy Neurology Dr. Barcenas 05/05/24 follow up recommended in 2 months: 07/05/24 TBD. #[phone] - Vascular Dr. Zambrano 05/01/24 - follow up recommended in 6 months: 11/11/24 TBD #[phone]. - MTM if covered by insurance TBD [...] clinic with 24/7 after hours services available. Finishing Lab Technician will remain available as needed. documented as of this encounter Visit Diagnoses Diagnosis History of seizure documented in this encounter Additional Health Concerns Active Problems Noted Date Diagnosed Date Increased risk of re-admission 02/18/2024 Assessment Noted Time PHQ-9 Depression Total Score: 5 03/17/20 9:45 AM CDT documented as of this encounter Care Teams Training Executive Relationship Specialty Start Date End Date Winston Villatoro OD [facility] [place] [address] [place] [address] PCP - Ophthalmology Ophthalmology 02/11/13 Denise Woodson Ra, PUMPER BREWERY SAW HANDLE ASSEMBLER [address] [place] [address] PCP - General Family Practice 09/21/20 Denise Woodson Ra, PUMPER BREWERY SAW HANDLE ASSEMBLER [address] [address] [facility] [place] 87[address] Assigned PCP 07/17/20 Usha Simon APRN SAW HANDLE ASSEMBLER [address] [place] [address] Nurse Practitioner Neurological Surgery 01/24/24 Dangelo Salinas MD [address] [place], [place] [id number] Neurology 01/27/24 Anastasia Stearns, RN Lead Finishing Lab Technician 02/06/24 Germaine Lopez, CHW Community Health Worker Primary Care - CC 02/18/24 Robin Zepeda MD [address] [place] [address] Assigned Neuroscience Provider 03/08/24 05/07/24 documented as of this encounter
--- OUTSIDE RECORDS SUMMARY | 2024-05-17 01:25 | XMS_ITS | Encounter Summary ---
Author Organization [place] Address [address] [place] [address] Care Team Providers Care Chemical Educator Name Role Phone Winston Villatoro OD Unavailable [phone] Denise Woodson Ra, APRN COUNTER HOP Unavailable [phone] Denise Woodson Ra, APRN COUNTER HOP Primary Care Provid er Usha Simon APRN COUNTER HOP Unavailable [phone] Dangelo Salinas MD Unavailable Anastasia Stearns RN Unavailable [phone] Germaine Lopez CHW Unavailable [phone] Robin Zepeda MD Unavailable [phone] Reason for Visit * Rehab Therapy Integrated Services (Routine) - Authorized Specialty Diagnoses / Procedures Referred By Nila shah Referred To Contact Diagnoses Cerebrovascular accident (CVA), unspecified mechanism (H) [address] [address] Referral ID Status Reason Start Date Expiration Date V isits Requested Visits Authorized [id number] Authorized 09/16/2023 09/15/2024 365 365 Encounter Details Date Type Department Care Team (Late st Contact Info) Description 03/26/2024 3:30 PM CDT Therapy Visit [address] [phone] Danya You, AMAIRANI [address] [place] [address] [address] [place] [address] Delicia George, PT [address] [place] [address] Cerebrovascular accident (CVA), unspecified mechanism [...] How often do you attend islam or mu-ism serv ices? Never 02/28/2024 Do [...] PHQ-2 Score 0 03/17/2024 [facility] of Occupat ional Health - Occupational Stress [...] Description 05/26/2024 8:30 AM CDT [facility] [address] [facility] [address] Denise Woodson Ra, PLANING MACHINE OPERATOR COUNTER HOP [address] [facility], [place] [address] 06/08/2024 8:30 AM CDT Office Visit [facility] [place] [address] [facility] [address] Denise Woodson Ra, PLANING MACHINE OPERATOR COUNTER HOP [address] [facility] [place] [address] 06/26/2024 2:40 PM CDT Office Visit [facility] Heart [facility] 6[address] [facility] [address] [place] [address] Danna Cardenas PA-C 6405 [place], [place] [address] documented as of this encounter Goals Goal [...] Mental Health weekly - PT, OT and CHECK AIRMAN - PCP appointment 05/26/24 & 06/08/24 - Stroke Neurology Dr. Hoyos 04/14/24 #[phone] - Epilepsy Neurology Dr. Barcenas 05/05/24 follow up recommended in 2 months: 07/05/24 TBD. #[phone] - Vascular Dr. Zambrano 05/01/24 - follow up recommended in 6 months: 11/11/24 TBD #[phone]. - MTM if covered by insurance TBD [...] clinic with 24/ after hours services available. Machine Operators will remain available as needed. documented as of this encounter Visit Diagnoses Diagnosis Cerebrovascular accident (CVA), unspecified mechanism (H)- Primary documented in this encounter Additional Health Concerns Active Problems Noted Date Diagnosed Date Increased risk of re-admission 02/18/2024 Assessment Noted Time PHQ-9 Depression Total Score: 5 03/17/20 9:45 AM CDT documented as of this encounter Care Teams Chemical Educator Relationship Specialty Start Date End Date Winston Villatoro OD [facility] [address] [facility] [address] [place] [address] PCP - Ophthalmology Ophthalmology 02/11/13 Denise Woodson Ra, APRN COUNTER HOP [address] [place] [address] PCP - General Family Practice 09/21/20 Denise Woodson Ra, APRN COUNTER HOP [address] [place] [address] Assigned PCP 11/1/20 Usha Simon APRN COUNTER HOP 909 [facility] [place], [place] [address] Nurse Practitioner Neurological Surgery 01/24/24 Dangelo Salinas MD [address] [place], [place] [id number] Neurology 01/27/24 Anastasia Stearns, RN Lead Machine Operators 02/06/24 Germaine Lopez, W Community Health Worker Primary Care - CC 02/18/24 Robin Zepeda MD 909 [facility] [place], [place] [address] Assigned Neuroscience Provider 03/08/24 05/07/24 documented as of this encounter
--- OUTSIDE RECORDS SUMMARY | 2024-05-17 01:25 | XMS_ITS | Encounter Summary ---
Author Organization [place] Address [address] [place] [address] Care Team Providers Care Primary Care Sales Representative Name Role Phone ShaunaWinston OD Unavailable [phone] Denise Woodson Ra, APRN WRONG ADDRESS CLERK Unavailable [phone] Denise Woodson Ra, APRN WRONG ADDRESS CLERK Primary Care Provid er Usha Simon APRN WRONG ADDRESS CLERK Unavailable [phone] Dangelo Salinas MD Unavailable Anastasia Stearns RN Unavailable [phone] Germaine Lopez CHW Unavailable [phone] Robin Zepeda MD Unavailable [phone] Encounter Details Date Type Department Care Team [...] How often do you attend holiness or taoist serv ices? Never 02/28/2024 Do [...] Answer Date Recorded PHQ-2 Score 0 03/17/2024 [facility] of Occupat ional Health [...] CDT Office Visit [facility] [address] [place] [address] Denise Woodson Ra, CHAINSAW MECHANIC WRONG ADDRESS CLERK [address] [place], [place] [address] 06/08/2024 8:30 AM CDT Office Visit [facility] [address] [place] [address] Denise Woodson Ra, CHAINSAW MECHANIC WRONG ADDRESS CLERK [address] [place] [address] 06/26/2024 2:40 PM CDT Office [facility] 6405 [facility] [address] [place] [address] Danna Cardenas PA-C 2105 [place], [place] 6[address] documented as of this encounter Goals Goal [...] Mental Health weekly - PT, OT and VIBRATOR OPERATOR - PCP appointment 05/26/24 & 06/08/24 - Stroke Neurology Dr. Hoyos 04/14/24 #[phone] - Epilepsy Neurology Dr. Barcenas 05/05/24 follow up recommended in 2 months: 07/05/24 TBD. #[phone] - Vascular Dr. Zambrano 05/01/24 - follow up recommended in 6 months: 11/11/24 TBD #[phone]. - MTM if covered by insurance TBD [...] clinic with 24/7 after hours services available. Physical Scientist will remain available as needed. documented as of this encounter Visit Diagnoses Not on filedocumented in this encounter Additional Health Concerns Active Problems Noted Date Diagnosed Date Increased risk of re-admission 02/18/2024 Assessment Noted Time PHQ-9 Depression Total Score: 5 03/17/20 9:45 AM CDT documented as of this encounter Care Teams Primary Care Sales Representative Relationship Specialty Start Date End Date Winston Villatoro OD [facility] [place] [address] [place] [address] PCP - Ophthalmology Ophthalmology 02/11/13 Denise Woodson Ra, CHAINSAW MECHANIC WRONG ADDRESS CLERK [address] [place] [address] PCP - General Family Practice 09/21/20 Denise Woodson Ra, APRN WRONG ADDRESS CLERK [address] [place] [address] Assigned PCP 07/17/20 Usha Simon APRN WRONG ADDRESS CLERK [address] [place] [address] [address] Nurse Practitioner Neurological Surgery 01/24/24 Dangelo Salinas MD [address] [place] [address] Neurology 01/27/24 Anastasia Stearns, RN Lead Physical Scientist 02/06/24 Germaine Lopez, W Community Health Worker Primary Care - CC 02/18/24 Robin Zepeda MD [address] [address] Assigned Neuroscience Provider 03/08/24 05/07/24 documented as of this encounter
--- OUTSIDE RECORDS SUMMARY | 2024-05-17 01:25 | XMS_ITS | Encounter Summary ---
Author Organization [place] Address [address] [place] [address] Care Team Providers Care Power Checker Name Role Phone Winston Villatoro OD Unavailable [phone] Denise Woodson Ra, APRN PROGRAM MEDICAL DIRECTOR Unavailable [phone] Denise Woodson Ra, APRN PROGRAM MEDICAL DIRECTOR Primary Care Provid er Usha Simon APRN PROGRAM MEDICAL DIRECTOR Unavailable [phone] Dangelo Salinas MD Unavailable Anastasia Stearns RN Unavailable [phone] Germaine Lopez CHW Unavailable [phone] Robin Zepeda MD Unavailable [phone] Reason for Visit * Rehab Therapy Integrated Services (Routine) - Authorized Specialty Diagnoses / Procedures Referred By Nila shah Referred To Contact Diagnoses Cerebrovascular accident (CVA), unspecified mechanism (H) [address] [address] Referral ID Status Reason Start Date Expiration Date V isits Requested Visits Authorized [id number] Authorized 09/16/2023 09/15/2024 365 365 Encounter Details Date Type Department Care Team (Late st Contact Info) Description 04/02/2024 2:15 PM CDT Therapy Visit [address] [phone] Danya You, AMAIRANI [address] [place] [address] 213 [place] [address] Isabel Beaulieu, OTR [address] [address] Cerebrovascular accident (CVA), unspecified mechanism (H) (Primary [...] Never 02/28/2024 How often do you attend rastafari or congregational serv ices? Never 02/28/2024 Do you belong to any clubs o r organizations such as rastafari groups, unions, fraternal or athletic groups, or [...] Answer Date Recorded PHQ-2 Score 0 03/17/2024 [facility] of Occupat ional Health - Occupational Stress [...] CDT Office Visit [facility] [address] [place] [address] Denise Woodson Ra, GARMENT PRESSER PROGRAM MEDICAL DIRECTOR [address] [place] [address] 06/08/2024 8:30 AM CDT [facility] [address] [place] [address] ChintanDenise munroe Ra, GARMENT PRESSER PROGRAM MEDICAL DIRECTOR [address] [place] [address] 06/26/2024 2:40 PM CDT Office Visit [facility] Heart [facility] 6405 [facility] [address] [place] [address] Danna Cardenas PA-C 6405 [place], [place] [address] documented as of this encounter Goals Goal [...] Mental Health weekly - PT, OT and FULL STACK NET DEVELOPER - PCP appointment 05/26/24 & 06/08/24 - Stroke Neurology Dr. Hoyos 04/14/24 #[phone] - Epilepsy Neurology Dr. Barcenas 05/05/24 follow up recommended in 2 months: 07/05/24 TBD. #[phone] - Vascular Dr. Zambrano 05/01/24 - follow up recommended in 6 months: 11/11/24 TBD #[phone]. - MTM if covered by insurance TBD [...] clinic with 24/7 after hours services available. Mechanical Design Technician will remain available as needed. documented as of this encounter Visit Diagnoses Diagnosis Cerebrovascular accident (CVA), unspecified mechanism (H)- Primary documented in this encounter Additional Health Concerns Active Problems Noted Date Diagnosed Date Increased risk of re-admission 02/18/2024 Assessment Noted Time PHQ-9 Depression Total Score: 5 03/17/20 24 9:45 AM CDT documented as of this encounter Care Teams Power Checker Relationship Specialty Start Date End Date Winston Villatoro OD [facility] 701 [facility] 95 [place] [address] PCP - Ophthalmology Ophthalmology 02/11/13 Denise Woodson Ra, APRN PROGRAM MEDICAL DIRECTOR [address] [place] [address] PCP - General Family Practice 09/21/20 Denise Woodson Ra, APRN PROGRAM MEDICAL DIRECTOR [address] [place] [address] Assigned PCP 07/17/20 Usha Simon APRN PROGRAM MEDICAL DIRECTOR 909 [facility] [id number] [place] [address] Nurse Practitioner Neurological Surgery 01/24/24 Dangelo Salinas MD [address] [facility] [address] [id number] Neurology 01/27/24 Anastasia Stearns, RN Lead Mechanical Design Technician 02/06/24 Germaine Lopez, CHW Community Health Worker Primary Care - CC 02/18/24 Robin Zepeda MD 9 [facility] [address] Assigned Neuroscience Provider 03/08/24 05/07/24 documented as of this encounter
--- OUTSIDE RECORDS SUMMARY | 2024-05-17 01:25 | XMS_ITS | Encounter Summary ---
Author Organization [place] Address [address] [place] [address] Care Team Providers Care Rigger Apprentice Name Role Phone Winston Villatoro OD Unavailable [phone] Denise Woodson Ra, APRN FBI SHARPSHOOTER Unavailable [phone] Denise Woodson Ra, APRN FBI SHARPSHOOTER Primary Care Provid er Usha Simon APRN FBI SHARPSHOOTER Unavailable [phone] Dangelo Salinas MD Unavailable Anastasia Stearns RN Unavailable [phone] Germaine Lopez CHW Unavailable [phone] Robin Zepeda MD Unavailable Reason for Visit * Rehab Therapy Integrated Services (Routine) - Authorized Specialty Diagnoses / Procedures Referred By Nila shah Referred To Contact Diagnoses Cerebrovascular accident (CVA), unspecified mechanism (H) [address] [address] Referral ID Status Reason Start Date Expiration Date V isits Requested Visits Authorized [id number] Authorized 09/16/2023 09/15/2024 365 365 Encounter Details Date Type Department Care Team (Late st Contact Info) Description 03/26/2024 2:30 PM CDT Therapy Visit [address] [phone] Danya You, AMAIRANI [address] [place] [address] 213 [place] [address] Charis Chacon, [facility] [address] [place] [address] Cognitive communication deficit (Primary Dx); Cerebrovascular accident [...] How often do you attend sikhism or hoahaoism serv ices? Never 02/28/2024 Do [...] Answer Date Recorded PHQ-2 Score 0 03/17/2024 [facility] of Occupat ional Health - Occupational Stress [...] AM CDT Office Visit [facility] [address] [place] [address] Denise Woodson Ra, WINE STEWARD FBI SHARPSHOOTER [address] [place] [address] 06/08/2024 8:30 AM CDT [facility] [address] [place] [address] Denise Woodson Ra, APRN FBI SHARPSHOOTER [address] [place] [address] 06/26/2024 2:40 PM CDT Office Visit [facility] 6405 [facility] [address] [place] [address] Danna Cardenas PA-C 6405 [place] [address] documented as of this encounter Goals Goal [...] Mental Health weekly - PT, OT and LANCE CREWMEMBER/MLRS SERGEANT - PCP appointment 05/26/24 & 06/08/24 - Stroke Neurology Dr. Hoyos 04/14/24 #[phone] - Epilepsy Neurology Dr. Barcenas 05/05/24 follow up recommended in 2 months: 07/05/24 TBD. #[phone] - Vascular Dr. Zambrano 05/01/24 - follow up recommended in 6 months: 11/11/24 TBD #[phone]. - MTM if covered by insurance TBD [...] clinic with 24/7 after hours services available. Latent Print Examiner will remain available as needed. documented as of this encounter Visit Diagnoses Diagnosis Cognitive communication deficit- Primary Cerebrovascular accident (CVA), unspecified mechanism (H) documented in this encounter Additional Health Concerns Active Problems Noted Date Diagnosed Date Increased risk of re-admission 02/18/2024 Assessment Noted Time PHQ-9 Depression Total Score: 5 03/17/20 24 9:45 AM CDT documented as of this encounter Care Teams Rigger Apprentice Relationship Specialty Start Date End Date Winston Villatoro OD [facility] 701 [facility] [address] [place] [address] PCP - Ophthalmology Ophthalmology 02/11/13 Denise Woodson Ra, APRN FBI SHARPSHOOTER [address] [place] [address] PCP - General Family Practice 09/21/20 Denise Woodson Ra, APRN FBI SHARPSHOOTER [address] [place] [address] Assigned PCP 07/17/20 Usha Simon APRN FBI SHARPSHOOTER 9 [facility] [id number] [place] [address] Nurse Practitioner Neurological Surgery 01/24/24 Dangelo Salinas MD [address] [place] [address] Neurology 01/27/24 Anastasia Stearns, RN Lead Latent Print Examiner 02/06/24 Germaine Lopez, W Community Health Worker Primary Care - CC 02/18/24 Robin Zepeda MD 909 [facility] [id number], [place] [address] Assigned Neuroscience Provider 03/08/24 05/07/24 documented as of this encounter
--- OUTSIDE RECORDS SUMMARY | 2024-05-17 01:26 | XMS_ITS | Encounter Summary ---
Author Organization [facility] Address [address] [place] [address] Care Team Providers Care E Business Specialist Name Role Phone Winston Villatoro OD Unavailable [phone] Denise Woodson Ra, APRN CROSS TIE CUTTER Unavailable [phone] Denise Woodson Ra, APRN CROSS TIE CUTTER Primary Care Provid er Usha Simon APRN CROSS TIE CUTTER Unavailable [phone] Dangelo Salinas MD Unavailable Anastasia Stearns RN Unavailable [phone] Germaine Lopez CHW Unavailable [phone] Robin Zepeda MD Unavailable [phone] Reason for Visit * Rehab Therapy Integrated Services (Routine) - Authorized Specialty Diagnoses / Procedures Referred By Nila shah Referred To Contact Diagnoses Cerebrovascular accident (CVA), unspecified mechanism (H) [address] [address] Referral ID Status Reason Start Date Expiration Date V isits Requested Visits Authorized [id number] Authorized 09/16/2023 09/15/2024 365 365 Encounter Details Date Type Department Care Team (Late st Contact Info) Description 03/17/2024 2:30 PM CDT Therapy Visit [address] [address] Danya You, AMAIRANI [address] [place] [address] 213 [place] [address] Charis Chacon, [facility] [address] [place] [address] Cognitive communication deficit (Primary Dx); Cerebrovascular accident [...] How often do you attend anabaptist or restorationism serv ices? Never 02/28/2024 Do [...] Answer Date Recorded PHQ-2 Score 0 03/17/2024 [facility] [place] of Occupat ional Health - Occupational Stress [...] AM CDT Office Visit [facility] [address] [place] [address] Denise Woodson Ra, VERTICA ARCHITECT CROSS TIE CUTTER [address] [place] [address] 06/08/2024 8:30 AM CDT [facility] [address] [place] [address] Denise Woodson Ra, APRN CROSS TIE CUTTER [address] [place] [address] 06/26/2024 2:40 PM CDT Office Visit [facility] Heart [facility] 6405 [facility] [address] [place] [address] Danna Cardenas PA-C 6405 [place] [address] documented as of this encounter Goals Goal [...] Mental Health weekly - PT, OT and YARD JACKER - PCP appointment 05/26/24 & 06/08/24 - Stroke Neurology Dr. Hoyos 04/14/24 #[phone] - Epilepsy Neurology Dr. Barcenas 05/05/24 follow up recommended in 2 months: 07/05/24 TBD. #[phone] - Vascular Dr. Zambrano 05/01/24 - follow up recommended in 6 months: 11/11/24 TBD #[phone]. - MTM if covered by insurance TBD [...] clinic with 24/7 after hours services available. Storage Worker will remain available as needed. documented as of this encounter Visit Diagnoses Diagnosis Cognitive communication deficit- Primary Cerebrovascular accident (CVA), unspecified mechanism (H) documented in this encounter Additional Health Concerns Active Problems Noted Date Diagnosed Date Increased risk of re-admission 02/18/2024 Assessment Noted Time PHQ-9 Depression Total Score: 5 03/17/20 24 9:45 AM CDT documented as of this encounter Care Teams E Business Specialist Relationship Specialty Start Date End Date Winston Villatoro OD [facility] 701 [facility] [address] [place] [address] PCP - Ophthalmology Ophthalmology 02/11/13 Denise Woodson Ra, APRN CROSS TIE CUTTER [address] [place] [address] PCP - General Family Practice 09/21/20 Denise Woodson Ra, APRN CROSS TIE CUTTER [address] [place] [address] Assigned PCP 07/17/20 Usha Simon APRN CROSS TIE CUTTER 9 [facility] [id number] [place] [address] Nurse Practitioner Neurological Surgery 01/24/24 Dangelo Salinas MD [address] [place] [address] Neurology 01/27/24 Anastasia Stearns, RN Lead Storage Worker 02/06/24 Germaine Lopez, W Community Health Worker Primary Care - CC 02/18/24 Robin Zepeda MD 909 [facility] [id number] [address] Assigned Neuroscience Provider 03/08/24 05/07/24 documented as of this encounter
--- OUTSIDE RECORDS SUMMARY | 2024-05-17 01:26 | XMS_ITS | Encounter Summary ---
Author Organization [facility] Address [address] [place] [address] Care Team Providers Care Partition Setter Name Role Phone Winston Villatoro OD Unavailable [phone] Denise Woodson Ra, APRN FULL STACK ENGINEER Unavailable [phone] Denise Woodson Ra WHITE METAL CORROSION PROOFER FULL STACK ENGINEER Primary Care Provid er Usha Simon APRN FULL STACK ENGINEER Unavailable [phone] Dangelo Salinas MD Unavailable Usha Simon APRN FULL STACK ENGINEER Unavailable [phone] Anastasia Stearns RN Unavailable [phone] Germaine Lopez CHW Unavailable [phone] Reason for Visit * Rehab Therapy Integrated Services (Routine) - Authorized Specialty Diagnoses / Procedures Referred By Nila shah Referred To Contact Diagnoses Cerebrovascular accident (CVA), unspecified mechanism (H) [address] [address] Referral ID Status Reason Start Date Expiration Date V isits Requested Visits Authorized [id number] Authorized 09/16/2023 09/15/2024 365 365 Encounter Details Date Type Department Care Team (Late st Contact Info) Description 03/05/2024 1:30 PM CDT Therapy Visit [address] [phone] Danya You, PA [address] [place] [address] [address] [place] [address] Isabel Beaulieu, OTR [address] [address] Cerebrovascular accident (CVA), unspecified mechanism (H) (Primary [...] How often do you attend voodoo or amish serv ices? Never 02/28/2024 Do [...] Answer Date Recorded PHQ-2 Score 4 02/12/2024 [facility] [place] of Occupat ional Health - Occupational Stress [...] 8:30 AM CDT Office Visit [facility] [address] [place] [address] Denise Woodson Ra, WHITE METAL CORROSION PROOFER FULL STACK ENGINEER [address] [place] [address] 06/08/2024 8:30 AM CDT [facility] [address] [place] [address] Denise Woodson Ra, WHITE METAL CORROSION PROOFER FULL STACK ENGINEER [address] [place] [address] 06/26/2024 2:40 PM CDT Office Visit [facility] 6405 [facility] [address] [place] [address] Danna Cardenas PA-C 6405 [place], [place] [address] documented as of this encounter Goals Goal [...] Mental Health weekly - PT, OT and PAN DEVULCANIZER HELPER - PCP appointment 05/26/24 & 06/08/24 - Stroke Neurology Dr. Hoyos 04/14/24 #[phone] - Epilepsy Neurology Dr. Barcenas 05/05/24 follow up recommended in 2 months: 07/05/24 TBD. #[phone] - Vascular Dr. Zambrano 05/01/24 - follow up recommended in 6 months: 11/11/24 TBD #[phone]. - MTM if covered by insurance TBD [...] clinic with 24/7 after hours services available. Frit Mixer And Burner will remain available as needed. documented as of this encounter Visit Diagnoses Diagnosis Cerebrovascular accident (CVA), unspecified mechanism (H)- Primary documented in this encounter Additional Health Concerns Active Problems Noted Date Diagnosed Date Increased risk of re-admission 02/18/2024 Assessment Noted Time PHQ-9 Depression Total Score: 16 024 3:27 PM CDT documented as of this encounter Care Teams Partition Setter Relationship Specialty Start Date End Date Winston Villatoro OD [facility] 701 [facility] 95 [place] [address] PCP - Ophthalmology Ophthalmology 02/11/13 Denise Woodson Ra, APRN FULL STACK ENGINEER [address] [place] [address] PCP - General Family Practice 09/21/20 Denise Woodson Ra, APRN FULL STACK ENGINEER [address] [place] [address] Assigned PCP 07/17/20 Usha Simon APRN FULL STACK ENGINEER [address] [address] Nurse Practitioner Neurological Surgery 01/24/24 Dangelo Salinas MD [address] [facility] [address] [facility] [address] [place], [place] [address] Neurology 01/27/24 Usha Simon APRN FULL STACK ENGINEER [address] [address] Assigned Neuroscience Provider 02/06/24 03/07/24 Anastasia Stearns, RN Lead Frit Mixer And Burner 02/06/24 Germaine Lopez, W Community Health Worker Primary Care - CC 02/18/24 documented as of this encounter
--- OUTSIDE RECORDS SUMMARY | 2024-05-17 01:26 | XMS_ITS | Encounter Summary ---
Author Organization [facility] Address [address] [place] [address] Care Team Providers Care Light Equipment Operator Name Role Phone Winston Villatoro OD Unavailable [phone] Denise Woodson Ra, APRN GRINDER BRAKE LINING Unavailable + [phone] Denise Woodson Ra, APRN GRINDER BRAKE LINING Primary Care Provid er Usha Simon APRN GRINDER BRAKE LINING Unavailable + [phone] Dangelo Salinas MD Unavailable Anastasia Stearns RN Unavailable [phone] Germaine Lopez CHW Unavailable [phone] Robin Zepeda MD Unavailable [phone] Lisa Zambrano MD Unavailable + [phone] Raul Hoyos MD Unavailable [phone] Encounter Details Date Type Department Care Team (Late st Contact Info) Description 03/16/2024 [facility] Medical Advice [facility] [address] 3rd [place] [address] Ora Bazan Social History Tobacco [...] How often do you attend confucianism or protestant serv ices? Never 02/28/2024 Do [...] Answer Date Recorded PHQ-2 Score 0 03/17/2024 [facility] of Occupat ional Health - [...] Visit [facility] [address] [place] [address] Denise Woodson Ra, APRN GRINDER BRAKE LINING [address] [facility] [place] [address] 06/08/2024 8:30 AM CDT [facility] [address] [place] [address] Denise Woodson Ra, APRN GRINDER BRAKE LINING [address] [facility] [place] [address] 06/26/2024 2:40 PM CDT Office Visit [facility] Heart [address] [place] [address] Danna Cardenas PA-C [address] [facility] [place] [address] documented as of this encounter Goals Goal [...] Mental Health weekly - PT, OT and DATA TRANSCRIBER - PCP appointment 05/26/24 & 06/08/24 - Stroke Neurology Dr. Hoyos 04/14/24 #[phone] - Epilepsy Neurology Dr. Barcenas 05/05/24 follow up recommended in 2 months: 07/05/24 TBD. #[phone] - Vascular Dr. Zambrano 05/01/24 - follow up recommended in 6 months: 11/11/24 TBD #[phone]. - MTM if covered by insurance TBD [...] clinic with 24/7 after hours services available. Institution Director will remain available as needed. documented as of this encounter Visit Diagnoses Not on filedocumented in this encounter Additional Health Concerns Active Problems Noted Date Diagnosed Date Increased risk of re-admission 02/18/2024 Assessment Noted Time PHQ-9 Depression Total Score: 16 02/11/ 024 3:27 PM CDT documented as of this encounter Care Teams Light Equipment Operator Relationship Specialty Start Date End Date Winston Villatoro OD [facility] [place] [address] [place] [address] PCP - Ophthalmology Ophthalmology 02/11/13 Denise Woodson Ra, PLANER STONE GRINDER BRAKE LINING [address] [place] [address] PCP - General Family Practice 09/21/20 Denise Woodson Ra, PLANER STONE GRINDER BRAKE LINING [address] [place] [address] Assigned PCP 07/17/20 Usha Simon APRN GRINDER BRAKE LINING [address] [address] Nurse Practitioner Neurological Surgery 01/24/24 Dangelo Salinas MD [address] [place], [place] [address] Neurology 01/27/24 Anastasia Stearns, RN Lead Institution Director 02/06/24 Germaine Lopez, W Community Health Worker Primary Care - CC 02/18/24 Robin Zepeda MD [address] [address] Assigned Neuroscience Provider 03/08/24 05/07/24 Lisa Zambrano MD [address] [place] [address] Assigned Heart and Vascular Provider 05/08/24 Raul Hoyos MD 909 [facility] [id number] [place] [address] Assigned Neuroscience Provider 05/08/24 documented as of this encounter
--- OUTSIDE RECORDS SUMMARY | 2024-05-17 01:26 | XMS_ITS | Encounter Summary ---
Author Organization [facility] Address [address] [place] [address] Care Team Providers Care Senior It Architect Name Role Phone Winston Villatoro OD Unavailable [phone] Denise Woodson Ra, APRN PRESCHOOL ADVISER Unavailable [phone] Denise Woodson Ra, APRN PRESCHOOL ADVISER Primary Care Provid er Usha Simon APRN PRESCHOOL ADVISER Unavailable [phone] Dangelo Salinas MD Unavailable Usha Simon APRN PRESCHOOL ADVISER Unavailable [phone] Anastasia Stearns RN Unavailable [phone] Germaine Lopez CHW Unavailable [phone] Encounter Details Date Type Department Care Team [...] How often do you attend restoration or tenriism serv ices? Never 02/28/2024 Do [...] Answer Date Recorded PHQ-2 Score 4 02/12/2024 [facility] of Occupat ional Health [...] Description 05/26/2024 8:30 AM CDT Office Visit [facility] [address] [place] [address] Denise Woodson Ra, FINANCIAL SERVICES AUDITOR PRESCHOOL ADVISER [address] [place] [address] 06/08/2024 8:30 AM CDT Office Visit [facility] [address] [place] [address] Denise Woodson Ra, FINANCIAL SERVICES AUDITOR PRESCHOOL ADVISER [address] [place] [address] 06/26/2024 2:40 PM CDT Office Visit [facility] Heart [facility] 6405 [facility] [address] [place] [address] Danna Cardenas PA-C 6405 [place], [place] [address] documented as of this encounter Goals Goal [...] Mental Health weekly - PT, OT and BURLAP BAG SEWER - PCP appointment 05/26/24 & 06/08/24 - Stroke Neurology Dr. Hoyos 04/14/24 #[phone] - Epilepsy Neurology Dr. Barcenas 05/05/24 follow up recommended in 2 months: 07/05/24 TBD. #[phone] - Vascular Dr. Zambrano 05/01/24 - follow up recommended in 6 months: 11/11/24 TBD #[phone]. - MTM if covered by insurance TBD [...] clinic with 24/7 after hours services available. Land Leveler will remain available as needed. documented as of this encounter Visit Diagnoses Not on filedocumented in this encounter Additional Health Concerns Active Problems Noted Date Diagnosed Date Increased risk of re-admission 02/18/2024 Assessment Noted Time PHQ-9 Depression Total Score: 16 024 3:27 PM CDT documented as of this encounter Care Teams Senior It Architect Relationship Specialty Start Date End Date Winston Villatoro OD [facility] [place] [address] [place] [address] PCP - Ophthalmology Ophthalmology 02/11/13 Denise Woodson Ra, FINANCIAL SERVICES AUDITOR PRESCHOOL ADVISER [address] [place] [address] PCP - General Family Practice 09/21/20 Denise Woodson Ra, APRN PRESCHOOL ADVISER [address] [place] [address] Assigned PCP 07/17/20 Usha Simon APRN PRESCHOOL ADVISER [address] [place] [address], [place] [address] Nurse Practitioner Neurological Surgery 01/24/24 Dangelo Salinas MD [address] [place] [address] Neurology 01/27/24 Usha Simon APRN PRESCHOOL ADVISER [address] [place] [id number] [address] Assigned Neuroscience Provider 02/06/24 03/07/24 Anastasia Stearns, RN Lead Land Leveler 02/06/24 Germaine Lopez, CHW Community Health Worker Primary Care - CC 02/18/24 documented as of this encounter
--- OUTSIDE RECORDS SUMMARY | 2024-05-17 01:26 | XMS_ITS | Encounter Summary ---
Author Organization [place] Address [address] [place] [address] Care Team Providers Care Medical Van Driver Name Role Phone Winston Villatoro OD Unavailable [phone] Denise Woodson Ra, APRN EVENT MARKETING SPECIALIST Unavailable +- [phone] Denise Woodson Ra COUNTER WAITER EVENT MARKETING SPECIALIST Primary Care Provid er Usha Simon APRN EVENT MARKETING SPECIALIST Unavailable [phone] Dangelo Salinas MD Unavailable Usha Simon APRN EVENT MARKETING SPECIALIST Unavailable [phone] Anastasia Stearns RN Unavailable [phone] Germaine Lopez CHW Unavailable [phone] Reason for Visit * Rehab Therapy Integrated Services (Routine) - Authorized Specialty Diagnoses / Procedures Referred By Nila t Referred To Contact Diagnoses Cerebrovascular accident (CVA), unspecified mechanism (H) [address] [address] Referral ID Status Reason Start Date Expiration Date V isits Requested Visits Authorized [id number] Authorized 09/16/2023 09/15/2024 365 365 Encounter Details Date Type Department Care Team (Late st Contact Info) Description 03/05/2024 4:15 PM CDT Therapy Visit [address] [phone] Danya You, PA [address] [place] [address] JIE [place] [address] [place] [address] Delicia George, PT [address] [place] [address] Cerebrovascular accident (CVA), unspecified mechanism [...] How often do you attend latter-day or episcopal serv ices? Never 02/28/2024 Do [...] Answer Date Recorded PHQ-2 Score 4 02/12/2024 [facility] of Occupat ional Health - Occupational Stress [...] AM CDT Office Visit [facility] [address] [place] [phone] Denise Woodson Ra, COUNTER WAITER EVENT MARKETING SPECIALIST [address] [place] [address] 06/08/2024 8:30 AM CDT Office Visit [facility] [address] [place] [address] Denise Woodson Ra, COUNTER WAITER EVENT MARKETING SPECIALIST [address] [place] [address] 06/26/2024 2:40 PM CDT Office Visit [facility] 6405 [facility] [address] [place] [address] Danna Cardenas PA-C [address] [place], [place] [address] documented as of this encounter Goals Goal [...] Mental Health weekly - PT, OT and SEEDLING PULLER - PCP appointment 05/26/24 & 06/08/24 - Stroke Neurology Dr. Hoyos 04/14/24 #[phone] - Epilepsy Neurology Dr. Barcenas 05/05/24 follow up recommended in 2 months: 07/05/24 TBD. #[phone] - Vascular Dr. Zambrano 05/01/24 - follow up recommended in 6 months: 11/11/24 TBD #[phone]. - MTM if covered by insurance TBD [...] clinic with 24/ after hours services available. Mechanic'S Assistant will remain available as needed. documented as of this encounter Visit Diagnoses Diagnosis Cerebrovascular accident (CVA), unspecified mechanism (H)- Primary documented in this encounter Additional Health Concerns Active Problems Noted Date Diagnosed Date Increased risk of re-admission 02/18/2024 Assessment Noted Time PHQ-9 Depression Total Score: 16 024 3:27 PM CDT documented as of this encounter Care Teams Medical Van Driver Relationship Specialty Start Date End Date Winston Villatoro OD [facility] [place] [address] [place] [address] PCP - Ophthalmology Ophthalmology 02/11/13 Denise Woodson Ra, APRN EVENT MARKETING SPECIALIST [address] [address] [place] [address] PCP - General Family Practice 09/21/20 Denise Woodson Ra, APRN EVENT MARKETING SPECIALIST [address] [place] [address] Assigned PCP 07/17/20 Usha Simon APRN EVENT MARKETING SPECIALIST 909 [facility]121[place], [place] [address] Nurse Practitioner Neurological Surgery 01/24/24 Dangelo Salinas MD [address] [place] [address] Neurology 01/27/24 Usha Simon APRN EVENT MARKETING SPECIALIST 909 [facility]121[place], [place] [address] Assigned Neuroscience Provider 02/06/24 03/07/24 Anastasia Stearns, RN Lead Mechanic'S Assistant 02/06/24 Germaine Lopez, CHW Community Health Worker Primary Care - CC 02/18/24 documented as of this encounter
--- OUTSIDE RECORDS SUMMARY | 2024-05-17 01:26 | XMS_ITS | Encounter Summary ---
Author Organization [place] Address [address] [place] [address] Care Team Providers Care Washing Machine Loader Name Role Phone Winston Villatoro OD Unavailable Denise Woodson Ra, APRN MILK CONDENSER Unavailable [phone]- [phone] Denise Woodson Ra, APRN MILK CONDENSER Primary Care Provid er Usha Simon APRN MILK CONDENSER Unavailable [phone] Dangelo Salinas MD Unavailable Usha Simon APRN MILK CONDENSER Unavailable [phone] Anastasia Stearns RN Unavailable [phone] Germaine Lopez CHW Unavailable [phone] Encounter Details Date Type Department Care Team [...] How often do you attend orthodoxy or restoration serv ices? Never 02/28/2024 Do [...] Answer Date Recorded PHQ-2 Score 4 02/12/2024 [facility] of Occupat ional Health - [...] CDT Office Visit [facility] [address] [place] [address] Denise Woodson Ra, FAMILY THERAPIST MILK CONDENSER [address] [place] [address] 06/08/2024 8:30 AM CDT Office [facility] [address] [place] [address] Denise Woodson Ra, FAMILY THERAPIST MILK CONDENSER [address] [place] [address] 06/26/2024 2:40 PM CDT Office Visit [facility] 6405 [facility] [address] [place] [address] Danna Cardenas PA-C 6405 [place], [place] [address] documented as of this encounter Goals Goal [...] Mental Health weekly - PT, OT and BLAST FURNACE OPERATOR - PCP appointment 05/26/24 & 06/08/24 - Stroke Neurology Dr. Hoyos 04/14/24 #[phone] - Epilepsy Neurology Dr. Barcenas 05/05/24 follow up recommended in 2 months: 07/05/24 TBD. #[phone] - Vascular Dr. Zambrano 05/01/24 - follow up recommended in 6 months: 11/11/24 TBD #[phone]. - MTM if covered by insurance TBD [...] clinic with 24/7 after hours services available. Insights Analyst will remain available as needed. documented as of this encounter Visit Diagnoses Not on filedocumented in this encounter Additional Health Concerns Active Problems Noted Date Diagnosed Date Increased risk of re-admission 02/18/2024 Assessment Noted Time PHQ-9 Depression Total Score: 16 024 3:27 PM CDT documented as of this encounter Care Teams Washing Machine Loader Relationship Specialty Start Date End Date Winston Villatoro OD [facility] [place] [address] [place] [address] PCP - Ophthalmology Ophthalmology 02/11/13 Denise Woodson Ra, FAMILY THERAPIST MILK CONDENSER [address] [place] [address] PCP - General Family Practice 09/21/20 Denise Woodson Ra, APRN MILK CONDENSER [address] [place] [address] Assigned PCP 07/17/20 Usha Simon APRN MILK CONDENSER [address] [place] [address], [place] [address] Nurse Practitioner Neurological Surgery 01/24/24 Dangelo Salinas MD [address] [place] [address] Neurology 01/27/24 Usha Smion APRN MILK CONDENSER [address] [place] [address]217[address], [place] [address] Assigned Neuroscience Provider 02/06/24 03/07/24 Anastasia Stearns, RN Lead Insights Analyst 02/06/24 Germaine Lopez, CHW Community Health Worker Primary Care - CC 02/18/24 documented as of this encounter
--- OUTSIDE RECORDS SUMMARY | 2024-05-17 01:26 | XMS_ITS | Encounter Summary ---
Author Organization [place] Address [address] [place] [address] Care Team Providers Care Technical Sales Support Manager Name Role Phone Winston Villatoro OD Unavailable [phone] Denise Woodson Ra, APRN PROTOTYPER Unavailable [phone]- [phone] Denise Woodson Ra PATIENT INSURANCE CLERK PROTOTYPER Primary Care Provid er Usha Simon APRN PROTOTYPER Unavailable [phone] Dangelo Salinas MD Unavailable Usha Simon APRN PROTOTYPER Unavailable [phone] Anastasia Stearns RN Unavailable [phone] Germaine Lopez CHW Unavailable [phone] Reason for Visit * Rehab Therapy Integrated Services (Routine) - Authorized Specialty Diagnoses / Procedures Referred By Nila t Referred To Contact Diagnoses Cerebrovascular accident (CVA), unspecified mechanism (H) [address] [address] Referral ID Status Reason Start Date Expiration Date V isits Requested Visits Authorized [id number] Authorized 09/16/2023 09/15/2024 365 365 Encounter Details Date Type Department Care Team (Latest Contact Info) Description 03/05/2024 3:15 PM CDT Therapy Visit [address] [address] Danya You, PA [address] [place], [place] [address] [address] [place] [address] Charis Chacon, [facility] [address] [place] [address] Cerebrovascular accident (CVA), unspecified mechanism (H) (Primary [...] How often do you attend advent or church serv ices? Never 02/28/2024 Do you belong [...] Date Recorded PHQ-2 Score 4 02/12/2024 [facility] of Occupat ional Health - Occupational Stress [...] Description 05/26/2024 8:30 AM CDT Office Visit [address] [address] Denise Woodson Ra, PATIENT INSURANCE CLERK PROTOTYPER [address] [place] [address] 06/08/2024 8:30 AM CDT [facility] [address] [place] [address] Denise Woodson Ra, PATIENT INSURANCE CLERK PROTOTYPER [address] [place] [address] 06/26/2024 2:40 PM CDT Office Visit [facility] 6[address] [facility] [address] [place] [address] Danna Cardenas PA-C 6405 [place] [address] documented as of this encounter Goals Goal [...] Mental Health weekly - PT, OT and BUSINESS CONTINUITY GLOBAL DIRECTOR - PCP appointment 05/26/24 & 06/08/24 - Stroke Neurology Dr. Hoyos 04/14/24 #[phone] - Epilepsy Neurology Dr. Barcenas 05/05/24 follow up recommended in 2 months: 07/05/24 TBD. #[phone] - Vascular Dr. Zambrano 05/01/24 - follow up recommended in 6 months: 11/11/24 TBD #[phone]. - MTM if covered by insurance TBD [...] clinic with 24/7 after hours services available. Hearing Care Professional will remain available as needed. documented as of this encounter Visit Diagnoses Diagnosis Cerebrovascular accident (CVA), unspecified mechanism (H)- Primary Cognitive communication deficit documented in this encounter Additional Health Concerns Active Problems Noted Date Diagnosed Date Increased risk of re-admission 02/18/2024 Assessment Noted Time PHQ-9 Depression Total Score: 16 024 3:27 PM CDT documented as of this encounter Care Teams Technical Sales Support Manager Relationship Specialty Start Date End Date Winston Villatoro OD [facility] [place] [address] [facility] [address] [place] [address] PCP - Ophthalmology Ophthalmology 02/11/13 Denise Woodson Ra, APRN PROTOTYPER [address] [place] [address] PCP - General Family Practice 09/21/20 Denise Woodson Ra, APRN PROTOTYPER [address] [place] [address] Assigned PCP 07/17/20 Usha Simon APRN PROTOTYPER [address] [address] Nurse Practitioner Neurological Surgery 01/24/24 Dangelo Salinas MD [address] [facility] 200 [place] [address] Neurology 01/27/24 Usha Simon APRN PROTOTYPER [address] [place] [address] Assigned Neuroscience Provider 02/06/24 03/07/24 Anastasia Stearns, RN Lead Hearing Care Professional 02/06/24 Germaine Lopez, W Community Health Worker Primary Care - CC 02/18/24 documented as of this encounter
--- OUTSIDE RECORDS SUMMARY | 2024-05-17 01:26 | XMS_ITS | Encounter Summary ---
Author Organization [place] Address [address] [place] [address] Care Team Providers Care Forest Ranger Technician Name Role Phone ShaunaWinston moralez OD Unavailable [phone] Denise Woodson Ra, APRN HUMAN RESOURCES PROJECT MANAGER Unavailable [phone] Denise Woodson Ra, APRN HUMAN RESOURCES PROJECT MANAGER Primary Care Provid er Usha Simon APRN HUMAN RESOURCES PROJECT MANAGER Unavailable [phone] Dangelo Salinas MD Unavailable Anastasia Stearns RN Unavailable [phone] Germaine Lopez CHW Unavailable Robin Zepeda MD Unavailable [phone] Encounter Details Date Type Department Care Team [...] How often do you attend christian or synagogue serv ices? Never 02/28/2024 Do you belong [...] Answer Date Recorded PHQ-2 Score 4 02/12/2024 [facility] of Occupat ional Health - [...] Description 05/26/2024 8:30 AM CDT Office Visit [facility] [address] [place] [address] Denise Woodson Ra, CHEMICAL INSTRUMENTATION OFFICER HUMAN RESOURCES PROJECT MANAGER [address] [place], [place] [address] 06/08/2024 8:30 AM CDT Office Visit [facility] [address] [place] [address] Denise Woodson Ra, CHEMICAL INSTRUMENTATION OFFICER HUMAN RESOURCES PROJECT MANAGER [address] [place] [address] 06/26/2024 2:40 PM CDT Office Visit [facility] 6405 [facility] [address] [place] [address] Danna Cardenas PA-C [address]25 [place], [place] [address] documented as of this encounter Goals Goal [...] Mental Health weekly - PT, OT and OB/GYN - PCP appointment 05/26/24 & 06/08/24 - Stroke Neurology Dr. Hoyos 04/14/24 #[phone] - Epilepsy Neurology Dr. Barcenas 05/05/24 follow up recommended in 2 months: 07/05/24 TBD. #[phone] - Vascular Dr. Zambrano 05/01/24 - follow up recommended in 6 months: 11/11/24 TBD #[phone]. - MTM if covered by insurance TBD [...] clinic with 24/7 after hours services available. Breading Machine Tender will remain available as needed. documented as of this encounter Visit Diagnoses Not on filedocumented in this encounter Additional Health Concerns Active Problems Noted Date Diagnosed Date Increased risk of re-admission 02/18/2024 Assessment Noted Time PHQ-9 Depression Total Score: 16 024 3:27 PM CDT documented as of this encounter Care Teams Forest Ranger Technician Relationship Specialty Start Date End Date Winston Villatoro OD [facility] [place] [address] [place] [address] PCP - Ophthalmology Ophthalmology 02/11/13 Denise Woodson Ra, CHEMICAL INSTRUMENTATION OFFICER HUMAN RESOURCES PROJECT MANAGER [address] [place] [address] PCP - General Family Practice 09/21/20 Denise Woodson Ra, APRN HUMAN RESOURCES PROJECT MANAGER [address] [place] [address] Assigned PCP 07/17/20 Usha Simon APRN HUMAN RESOURCES PROJECT MANAGER [address] [place] [address], [place] [address] Nurse Practitioner Neurological Surgery 01/24/24 Dangelo Salinas MD [address] [place] [address] Neurology 01/27/24 Anastasia Stearns, RN Lead Breading Machine Tender 02/06/24 Germaine Lopez, W Community Health Worker Primary Care - CC 02/18/24 Robin Zepeda MD [address] [address] Assigned Neuroscience Provider 03/08/24 05/07/24 documented as of this encounter
--- OUTSIDE RECORDS SUMMARY | 2024-05-17 01:26 | XMS_ITS | Encounter Summary ---
Author Organization [place] Address [address] [place] [address] Care Team Providers Care Barker Peeler Name Role Phone Winston Villatoro OD Unavailable [phone] Denise Woodson Ra, APRN BUSINESS PERFORMANCE ADVISOR Unavailable [phone] Denise Woodson Ra, APRN BUSINESS PERFORMANCE ADVISOR Primary Care Provid er Usha Simon APRN BUSINESS PERFORMANCE ADVISOR Unavailable [phone] Dangelo Salinas MD Unavailable Anastasia Stearns RN Unavailable [phone] Germaine Lopez CHW Unavailable Robin Zepeda MD Unavailable Reason for Visit * Rehab Therapy Integrated Services (Routine) - Authorized Specialty Diagnoses / Procedures Referred By Nila shah Referred To Contact Diagnoses Cerebrovascular accident (CVA), unspecified mechanism (H) [address] [address] Referral ID Status Reason Start Date Expiration Date V isits Requested Visits Authorized [id number] Authorized 09/16/2023 09/15/2024 365 365 Encounter Details Date Type Department Care Team (Late st Contact Info) Description 03/11/2024 4:15 PM CDT Therapy Visit [address] [phone] Danya You, AMAIRANI [address] [place] [address] MB [address] [place] [address] Delicia George, PT [address] [place] [address] Cerebrovascular accident (CVA), unspecified mechanism [...] Never 02/28/2024 How often do you attend orthodox or holiness serv ices? Never 02/28/2024 Do you belong to any clubs o r organizations such as orthodox groups, unions, fraternal or athletic groups, [...] Answer Date Recorded PHQ-2 Score 4 02/12/2024 [facility] [place] of Occupat ional Health - Occupational Stress [...] 8:30 AM CDT Office Visit [facility] [address] [place] [address] Denise Woodson Ra, BARRERA BUSINESS PERFORMANCE ADVISOR [address] [place] [address] 06/08/2024 8:30 AM CDT [facility] [address] [place] [address] Denise Woodson Ra, WATER SAFETY TEACHER BUSINESS PERFORMANCE ADVISOR [address] [place] [address] 06/26/2024 2:40 PM CDT Office Visit [facility] 6[address] [facility] [address] [place] [phone] Danna Cardenas PA-C 6405 [place] [address] documented as of this encounter Goals Goal [...] Mental Health weekly - PT, OT and CERTIFIED NURSE MIDWIFE - PCP appointment 05/26/24 & 06/08/24 - Stroke Neurology Dr. Hoyos 04/14/24 #[phone] - Epilepsy Neurology Dr. Barcenas 05/05/24 follow up recommended in 2 months: 07/05/24 TBD. #[phone] - Vascular Dr. Zambrano 05/01/24 - follow up recommended in 6 months: 11/11/24 TBD #[phone]. - MTM if covered by insurance TBD [...] clinic with 08/04 after hours services available. Gem Expert will remain available as needed. documented as of this encounter Visit Diagnoses Diagnosis Cerebrovascular accident (CVA), unspecified mechanism (H)- Primary documented in this encounter Additional Health Concerns Active Problems Noted Date Diagnosed Date Increased risk of re-admission 02/18/2024 Assessment Noted Time PHQ-9 Depression Total Score: 16 024 3:27 PM CDT documented as of this encounter Care Teams Barker Peeler Relationship Specialty Start Date End Date Winston Villatoro OD [facility] [address] [facility] [address] [place] [address] PCP - Ophthalmology Ophthalmology 02/11/13 Denise Woodson Ra, APRN BUSINESS PERFORMANCE ADVISOR [address] [place] [address] PCP - General Family Practice 09/21/20 Denise Woodson Ra, APRN BUSINESS PERFORMANCE ADVISOR [address] [place] [address] Assigned PCP 07/17/20 Usha Simon APRN BUSINESS PERFORMANCE ADVISOR [address] [place] [address] Nurse Practitioner Neurological Surgery 01/24/24 Dangelo Salinas MD [address] [place] [address] Neurology 01/27/24 Anastasia Stearns, RN Lead Gem Expert 02/06/24 Germaine Lopez, CHW Community Health Worker Primary Care - CC 02/18/24 Robin Zepeda MD [address] [place] [address] Assigned Neuroscience Provider 03/08/24 05/07/24 documented as of this encounter
--- OUTSIDE RECORDS SUMMARY | 2024-05-17 01:26 | XMS_ITS | Encounter Summary ---
Author Organization [place] Address [address] [place] [address]. [place] [address] Care Team Providers Care Deck Engineer Name Role Phone Winston Villatoro OD Unavailable [phone] Denise Woodson Ra, APRN BOGGER OPERATOR Unavailable + [phone] Denise Woodson Ra CONTACT LENS POLISHER BOGGER OPERATOR Primary Care Provid er Usha Simon APRN BOGGER OPERATOR Unavailable + [phone] Dangelo Salinas MD Unavailable Usha Simon APRN BOGGER OPERATOR Unavailable + [phone] Anastasia Stearns RN Unavailable [phone] Germaine Lopez CHW Unavailable [phone] Reason for Visit * Reason Comments Medication Refill Encounter Details Date Type Department Care Team (Late st Contact Info) Description 03/03/2024 Refill [facility] [address] [place] [address] Denise Woodson Ra, APRN BOGGER OPERATOR [address] [place] [address] Medication Refill Social History Tobacco [...] How often do you attend bahai or uatsdin serv ices? Never 02/28/2024 Do [...] Answer Date Recorded PHQ-2 Score 4 02/12/2024 [facility] of Occupat ional [facility] - Occupational Stress Questionnaire Answer Date [...] AM CDT Office Visit [facility] [address] [place] [address] Denise Woodson Ra, APRN BOGGER OPERATOR [address] [place] [address] 06/08/2024 8:30 AM CDT [facility] [address] [place] [address] Denise Woodson Ra, BARRERA BOGGER OPERATOR [address] [place] [address] 06/26/2024 2:40 PM CDT Office Visit [facility] Heart [place] [address] [place] [address] Danna Cardenas PA-C 6405 [facility] [place] [address] documented as of this encounter Goals Goal [...] Health weekly - PT, OT and CREDIT UNDERWRITER - PCP appointment 05/26/24 & 06/08/24 - Stroke Neurology Dr. Hoyos 04/14/24 #[phone] - Epilepsy Neurology Dr. Barcenas 05/05/24 follow up recommended in 2 months: 07/05/24 TBD. #[phone] - Vascular Dr. Zambrano 05/01/24 - follow up recommended in 6 months: 11/11/24 TBD #[phone]. - MTM if covered by insurance TBD [...] with 24/7 after hours services available. Machine Wedger will remain available as needed. documented as of this encounter Visit Diagnoses Diagnosis History of seizure Cerebrovascular accident (CVA), unspecified mechanism (H) documented in this encounter Additional Health Concerns Active Problems Noted Date Diagnosed Date Increased risk of re-admission 02/18/2024 Assessment Noted Time PHQ-9 Depression Total Score: 16 02/11/ 024 3:27 PM CDT documented as of this encounter Care Teams Deck Engineer Relationship Specialty Start Date End Date Winston Villatoro OD [facility] [place] [address] [place] [address] PCP - Ophthalmology Ophthalmology 02/11/13 Denise Woodson Ra, APRN BOGGER OPERATOR [address] [place] [address] PCP - General Family Practice 09/21/20 Denise Woodson Ra, APRN BOGGER OPERATOR [address] [place] [address] Assigned PCP 07/17/20 Usha Simon APRN BOGGER OPERATOR 909 [facility], [place] [address] Nurse Practitioner Neurological Surgery 01/24/24 Dangelo Salinas MD [address] [place], [place] [address] Neurology 01/27/24 Usha Simon APRN BOGGER OPERATOR 909 [facility], [place] [address] Assigned Neuroscience Provider 02/06/24 03/07/24 Anastasia Stearns, RN Lead Machine Wedger 02/06/24 Germaine Lopez, CHW Community Health Worker Primary Care - CC 02/18/24 documented as of this encounter
--- OUTSIDE RECORDS SUMMARY | 2024-05-17 01:26 | XMS_ITS | Encounter Summary ---
Author Organization [place] Address [address] [place] [address] Care Team Providers Care Recyclable Materials Distributor Name Role Phone ShaunaWinston OD Unavailable [phone] Denise Woodson Ra, APRN ROBOT TECHNICIAN Unavailable + [phone] Denise Woodson Ra, APRN ROBOT TECHNICIAN Primary Care Provid er Usha Simon APRN ROBOT TECHNICIAN Unavailable [phone] Dangelo Salinas MD Unavailable Anastasia Stearns RN Unavailable Germaine Lopez CHW Unavailable [phone] Robin Zepeda MD Unavailable [phone] Lisa Zambrano MD Unavailable [phone] Raul Hoyos MD Unavailable Reason for Visit * Reason Onset Date Comments Call Back 03/09/2024 Follow up appoin tment Encounter Details Date Type Department Care Team (Late st Contact Info) Description 03/09/2024 Telephone [facility] Neurology Clinic [address] 3rd [place] [address] Raul Hoyos MD [address] [place] [address] CU0023AM [place] [address] Call Back (Follow up appointment [...] How often do you attend congregational or scientologist serv ices? Never 02/28/2024 Do [...] Answer Date Recorded PHQ-2 Score 4 02/12/2024 [facility] - Occupational Stress Questionnaire Answer Date [...] yes Reason for Call: Other: Germaine Lopez, Garment Examiner, calling to see if the patient should [...] Stroke provider is appropriate. Germaine's call back #[phone] or she states may call patient to schedule if appropriate Action Taken: Message routed to: [facility] Neurology Travel Screening: Not Applicable documented in this encounter Plan of Treatment Upcoming Encounters Date Type Department Care Team (Late st Contact Info) Description 05/26/2024 8:30 AM CDT [facility] [address] [place] [phone] Denise Woodson Ra, INSPECTOR SET UP AND LAY OUT ROBOT TECHNICIAN [address] [place], [place] 10135[address] 06/08/2024 8:30 AM CDT [facility] [address] [place] [address] Denise Woodson Ra, INSPECTOR SET UP AND LAY OUT ROBOT TECHNICIAN [address] [facility], [place] 344[address] 06/26/2024 2:40 PM CDT Office Visit [facility] [address] [facility] [address] [place] [address] Danna Cardenas PA-C 6405 [place], [place] 445675 documented as of this encounter Goals Goal [...] Health weekly - PT, OT and INFORMATION TECHNOLOGY ANALYST - PCP appointment 05/26/24 & 06/08/24 - Stroke Neurology Dr. Hoyos 04/14/24 #[phone] - Epilepsy Neurology Dr. Barcenas 05/05/24 follow up recommended in 2 months: 07/05/24 TBD. #[phone] - Vascular Dr. Zambrano 05/01/24 - follow up recommended in 6 months: 11/11/24 TBD #[phone]. - MTM if covered by insurance TBD [...] with 24/7 after hours services available. Garment Examiner will remain available as needed. documented as of this encounter Visit Diagnoses Not on filedocumented in this encounter Additional Health Concerns Active Problems Noted Date Diagnosed Date Increased risk of re-admission 02/18/2024 Assessment Noted Time PHQ-9 Depression Total Score: 16 024 3:27 PM CDT documented as of this encounter Care Teams Recyclable Materials Distributor Relationship Specialty Start Date End Date Winston Villatoro, AMELIE [facility] [address] [place] [address] PCP - Ophthalmology Ophthalmology 02/11/13 Denise Woodson Ra, APRN ROBOT TECHNICIAN [address] [place] [address] PCP - General Family Practice 09/21/20 Denise Woodson Ra, APRN ROBOT TECHNICIAN [address] [place] [place] [address] Assigned PCP 07/17/20 Usha Simon APRN ROBOT TECHNICIAN [address] [address] Nurse Practitioner Neurological Surgery 01/24/24 Dangelo Salinas MD [address] [place] [address] Neurology 01/27/24 Anastasia Stearns, RN Lead Garment Examiner 02/06/24 Germaine Lopez, W Community Health Worker Primary Care - CC 02/18/24 Robin Zepeda MD [address] [address] Assigned Neuroscience Provider 03/08/24 05/07/24 Lisa Zambrano MD [address] [place] [address] Assigned Heart and Vascular Provider 05/08/24 Raul Hoyos MD [address] [address] Assigned Neuroscience Provider 05/08/24 documented as of this encounter
--- OUTSIDE RECORDS SUMMARY | 2024-05-17 01:26 | XMS_ITS | Encounter Summary ---
Author Organization [facility] Address [address] [place] [address] Care Team Providers Care Certified Anesthesiologist Assistant Name Role Phone Winston Villatoro OD Unavailable [phone] Denise Woodson Ra, APRN VARNISH BLENDER Unavailable [phone] Denise Woodson Ra, APRN VARNISH BLENDER Primary Care Provid er Usha Simon APRN VARNISH BLENDER Unavailable [phone] Dangelo Salinas MD Unavailable Usha Simon APRN VARNISH BLENDER Unavailable [phone] Anastasia Stearns RN Unavailable [phone] Germaine Lopez CHW Unavailable [phone] Encounter Details Date Type Department Care Team [...] How often do you attend adventism or pentecostalism serv ices? Never 02/28/2024 Do you belong [...] Answer Date Recorded PHQ-2 Score 4 02/12/2024 [facility] of Occupat ional Health - [...] Description 05/26/2024 8:30 AM CDT Office Visit [facility] [address] [place] [phone] Denise Woodson Ra, WAFER SLICER VARNISH BLENDER [address] [place] [address] 06/08/2024 8:30 AM CDT Office Visit [facility] [address] [place] [address] Denise Woodson Ra, WAFER SLICER VARNISH BLENDER [address] [place] [address] 06/26/2024 2:40 PM CDT Office Visit [facility] Heart [facility] 6405 [facility] [address] [place] [address] Danna Cardenas PA-C 6405 [place], [place] [address] documented as of this encounter Goals Goal [...] Health weekly - PT, OT and SUPERVISOR WATERPROOFING - PCP appointment 05/26/24 & 06/08/24 - Stroke Neurology Dr. Hoyos 04/14/24 #[phone] - Epilepsy Neurology Dr. Barcenas 05/05/24 follow up recommended in 2 months: 07/05/24 TBD. #[phone] - Vascular Dr. Zambrano 05/01/24 - follow up recommended in 6 months: 11/11/24 TBD #[phone]. - MTM if covered by insurance TBD [...] clinic with 24/7 after hours services available. Aluminum Polisher will remain available as needed. documented as of this encounter Visit Diagnoses Not on filedocumented in this encounter Additional Health Concerns Active Problems Noted Date Diagnosed Date Increased risk of re-admission 02/18/2024 Assessment Noted Time PHQ-9 Depression Total Score: 16 024 3:27 PM CDT documented as of this encounter Care Teams Certified Anesthesiologist Assistant Relationship Specialty Start Date End Date Winston Villatoro OD [facility] [place] [address] [place] [address] PCP - Ophthalmology Ophthalmology 02/11/13 Denise Woodson Ra, WAFER SLICER VARNISH BLENDER [address] [place] [address] PCP - General Family Practice 09/21/20 Denise Woodson Ra, APRN VARNISH BLENDER [address] [place] [address] Assigned PCP 07/17/20 Usha Simon APRN VARNISH BLENDER [address] [place] [address] [address] Nurse Practitioner Neurological Surgery 01/24/24 Dangelo Salinas MD [address] [place] [address] Neurology 01/27/24 Usha Simon APRN VARNISH BLENDER [address] [place] [address] [address] Assigned Neuroscience Provider 02/06/24 03/07/24 Anastasia Stearns, RN Lead Aluminum Polisher 02/06/24 Germaine Lopez, CHW Community Health Worker Primary Care - CC 02/18/24 documented as of this encounter
--- OUTSIDE RECORDS SUMMARY | 2024-05-17 01:26 | XMS_ITS | Encounter Summary ---
Author Organization [place] Address [address] [place] [address] Care Team Providers Care Clinical Statistical Programmer Name Role Phone Winston Villatoro OD Unavailable [phone] Denise Woodson Ra, APRN LOOM TECHNICIAN Unavailable [phone] Denise Woodson Ra, APRN LOOM TECHNICIAN Primary Care Provid er Usha Simon APRN LOOM TECHNICIAN Unavailable [phone] Dangelo Salinas MD Unavailable Anastasia Stearns RN Unavailable [phone] Germaine Lopez CHW Unavailable [phone] Robin Zepeda MD Unavailable [phone] Reason for Visit * Reason Onset Date Comments Appointment 03/16/2024 Follow up Encounter Details Date Type Department Care Team ([facility] st Contact Info) Description 03/16/2024 Telephone [facility] Neurology Clinic [address] 3rd [place] [address] Raul Hoyos MD [address] [place] [address] [id number] [address] Appointment (Follow up ) Social [...] How often do you attend congregational or baptist serv ices? Never 02/28/2024 Do [...] PHQ-2 Score 0 03/17/2024 [facility] of Occupat ional Health - Occupational [...] - slot on hold Specialty phone number: [phone] Additional appointment(s) needed: n/a Additonal Notes: Schedule with Dr. Hoyos on 04/14/24 at 0930 for a video visit and remove hold once complete. Thanks! Stacey Bazan on 03/16/2024 at 9:54 AM documented in this encounter Plan of Treatment Upcoming Encounters Date Type Department Care Team (Late st Contact Info) Description 05/26/2024 8:30 AM CDT [facility] [address] [place] [phone] Denise Woodson Ra, MANNEQUIN MOUNTER LOOM TECHNICIAN [address] [place], [place] [address] 06/08/2024 8:30 AM CDT Office Visit [facility] [address] [place] [phone] Denise Woodson Ra, MANNEQUIN MOUNTER LOOM TECHNICIAN [address] [place], [place] [address] 06/26/2024 2:40 PM CDT Office Visit [facility] Heart [facility] 6[address] [facility] [address] [place] [phone] Danna Cardenas PA-C 6405 [place], [place] [address] documented as of this encounter Goals Goal [...] Health weekly - PT, OT and CUSTOMER SUPPORT ASSOCIATE - PCP appointment 05/26/24 & 06/08/24 - Stroke Neurology Dr. Hoyos 04/14/24 #[phone] - Epilepsy Neurology Dr. Barceans 05/05/24 follow up recommended in 2 months: 07/05/24 TBD. #[phone] - Vascular Dr. Zambrano 05/01/24 - follow up recommended in 6 months: 11/11/24 TBD #[phone]. - MTM if covered by insurance TBD [...] clinic with 24/ after hours services available. Hand Coper will remain available as needed. documented as of this encounter Visit Diagnoses Not on filedocumented in this encounter Additional Health Concerns Active Problems Noted Date Diagnosed Date Increased risk of re-admission 02/18/2024 Assessment Noted Time PHQ-9 Depression Total Score: 16 024 3:27 PM CDT documented as of this encounter Care Teams Clinical Statistical Programmer Relationship Specialty Start Date End Date Winston Villatoro OD [facility] [address] [facility] [address] [place] [address] PCP - Ophthalmology Ophthalmology 02/11/13 Denise Woodson Ra, APRN LOOM TECHNICIAN [address] [place] [address] PCP - General Family Practice 09/21/20 Denise Woodson Ra, APRN LOOM TECHNICIAN [address] [place] [address] Assigned PCP 07/17/20 Usha Simon APRN LOOM TECHNICIAN 9 [facility], [place] [address] Nurse Practitioner Neurological Surgery 01/24/24 Dangelo Salinas MD [address] [place], [place] [address] Neurology 01/27/24 Anastasia Stearns, RN Lead Hand Coper 02/06/24 Germaine Lopez, W Community Health Worker Primary Care - CC 02/18/24 Robin Zepeda MD [address] [place], [place] [address] [address] Assigned Neuroscience Provider 03/08/24 05/07/24 documented as of this encounter
--- OUTSIDE RECORDS SUMMARY | 2024-05-17 01:26 | XMS_ITS | Encounter Summary ---
Author Organization [place] Address [address] [place] [address]. [place] [address] Care Team Providers Care Cdl Bulk Driver Name Role Phone Winston Villatoro OD Unavailable Denise Woodson Ra, APRN DIRECTOR OF EDUCATION Unavailable [phone] Denise Woodson Ra, APRN DIRECTOR OF EDUCATION Primary Care Provid er Usha Simon APRN DIRECTOR OF EDUCATION Unavailable [phone] Dangelo Salinas MD Unavailable Anastasia Stearns RN Unavailable [phone] Germaine Lopez CHW Unavailable [phone] Robin Zepeda MD Unavailable [phone] Reason for Visit * Rehab Therapy Integrated Services (Routine) - Authorized Specialty Diagnoses / Procedures Referred By Nila shah Referred To Contact Diagnoses Cerebrovascular accident (CVA), unspecified mechanism (H) [address] [address] Referral ID Status Reason Start Date Expiration Date V isits Requested Visits Authorized [id number] Authorized 09/16/2023 09/15/2024 365 365 Encounter Details Date Type Department Care Team (Latest Contact Info) Description 03/17/2024 4:00 PM CDT Therapy Visit [address] [address] Danya You PA [address] [place] [address] [address] [place] [address] Vanessa Duggan PT Cerebrovascular accident (CVA), unspecified [...] How often do you attend taoist or latter day serv ices? Never 02/28/2024 [...] Answer Date Recorded PHQ-2 Score 0 03/17/2024 [facility] [place] of Occupat ional Health - Occupational [...] 8:30 AM CDT Office Visit [facility] [address] [place] [address] Denise Woodson Ra, SPEECH LANG PATH THERAPIST DIRECTOR OF EDUCATION [address] [place] [address] 06/08/2024 8:30 AM CDT [facility] [address] [place] [address] Denise Woodson Ra, SPEECH LANG PATH THERAPIST DIRECTOR OF EDUCATION [address] [place], [place] [address] 06/26/2024 2:40 PM CDT Office Visit [facility] 6[address] [facility] [address] [place] [address] Danna Cardenas PA-C 6405 [place], [place] [address] documented as of this encounter Goals Goal [...] Health weekly - PT, OT and DIRECTOR TEEN POST - PCP appointment 05/26/24 & 06/08/24 - Stroke Neurology Dr. Hoyos 04/14/24 #[phone] - Epilepsy Neurology Dr. Barcenas 05/05/24 follow up recommended in 2 months: 07/05/24 TBD. #[phone] - Vascular Dr. Zambrano 05/01/24 - follow up recommended in 6 months: 11/11/24 TBD #[phone]. - MTM if covered by insurance TBD [...] clinic with 24/7 after hours services available. Customer Engagement Analyst will remain available as needed. documented as of this encounter Visit Diagnoses Diagnosis Cerebrovascular accident (CVA), unspecified mechanism (H)- Primary documented in this encounter Additional Health Concerns Active Problems Noted Date Diagnosed Date Increased risk of re-admission 02/18/2024 Assessment Noted Time PHQ-9 Depression Total Score: 5 03/17/20 24 9:45 AM CDT documented as of this encounter Care Teams Cdl Bulk Driver Relationship Specialty Start Date End Date Shauna Winstongabino Saez OD [facility] [place] [address] [place] [address] PCP - Ophthalmology Ophthalmology 02/11/13 Denise Woodson Ra, APRN DIRECTOR OF EDUCATION [address] [place] [address] PCP - General Family Practice 09/21/20 Denise Woodson Ra, APRN DIRECTOR OF EDUCATION [address] [place] [address] Assigned PCP 07/17/20 Usha Simon APRN DIRECTOR OF EDUCATION 909 [facility]2121[place] [address] Nurse Practitioner Neurological Surgery 01/24/24 Dangelo Salinas MD [address] [place], [place] [id number] Neurology 01/27/24 Anastasia Stearns, RN Lead Customer Engagement Analyst 02/06/24 Germaine Lopez, W Community Health Worker Primary Care - CC 02/18/24 Robin Zepeda MD 909 [facility] [id number] [place] [address] Assigned Neuroscience Provider 03/08/24 05/07/24 documented as of this encounter
--- OUTSIDE RECORDS SUMMARY | 2024-05-17 01:26 | XMS_ITS | Encounter Summary ---
Author Organization [place] Address [address] [place] [address] Care Team Providers Care Assistant Operations Manager Name Role Phone Winston Villatoro OD Unavailable [phone] Denise Woodson Ra, APRN HOOP MAKER Unavailable [phone] Denise Woodson Ra, APRN HOOP MAKER Primary Care Provid er Usha Simon APRN HOOP MAKER Unavailable [phone] Dangelo Salinas MD Unavailable Anastasia Stearns RN Unavailable [phone] Germaine Lopez CHW Unavailable [phone] Robin Zepeda MD Unavailable [phone] Reason for Visit * Rehab Therapy Integrated Services (Routine) - Authorized Specialty Diagnoses / Procedures Referred By Nila shah Referred To Contact Diagnoses Cerebrovascular accident (CVA), unspecified mechanism (H) [address] [address] Referral ID Status Reason Start Date Expiration Date V isits Requested Visits Authorized [id number] Authorized 09/16/2023 09/15/2024 365 365 Encounter Details Date Type Department Care Team (Late st Contact Info) Description 03/11/2024 3:00 PM CDT Therapy Visit [address] [phone] Danya You, AMAIRANI [address] [place] [address] 213 [place] [address] Charis Chacon, JUAN [facility] [address] [place] [address] Cognitive communication deficit (Primary Dx); Cerebrovascular accident [...] Never 02/28/2024 How often do you attend religious or taoism serv ices? Never 02/28/2024 Do you belong [...] Answer Date Recorded PHQ-2 Score 4 02/12/2024 [facility] [place] of Occupat ional Health - Occupational Stress [...] 8:30 AM CDT [facility] [address] [place] [address] Denise Woodson Ra, CASHIER SELF SERVICE GASOLINE HOOP MAKER [address] [place] [address] 06/08/2024 8:30 AM CDT [facility] [address] [place] [phone] Denise Woodson Ra, APRN HOOP MAKER [address] [place] [address] 06/26/2024 2:40 PM CDT Office Visit [facility] Heart [facility] 6[address] [facility] [address] [place] [address] Danna Cardenas PA-C 6405 [place] [address] documented as of this encounter Goals Goal [...] Mental Health weekly - PT, OT and POWER REACTOR OPERATOR - PCP appointment 05/26/24 & 06/08/24 - Stroke Neurology Dr. Hoyos 04/14/24 #[phone] - Epilepsy Neurology Dr. Barcenas 05/05/24 follow up recommended in 2 months: 07/05/24 TBD. #[phone] - Vascular Dr. Zambrano 05/01/24 - follow up recommended in 6 months: 11/11/24 TBD #[phone]. - MTM if covered by insurance TBD [...] clinic with 24/7 after hours services available. Faucet Polisher will remain available as needed. documented as of this encounter Visit Diagnoses Diagnosis Cognitive communication deficit- Primary Cerebrovascular accident (CVA), unspecified mechanism (H) documented in this encounter Additional Health Concerns Active Problems Noted Date Diagnosed Date Increased risk of re-admission 02/18/2024 Assessment Noted Time PHQ-9 Depression Total Score: 16 024 3:27 PM CDT documented as of this encounter Care Teams Assistant Operations Manager Relationship Specialty Start Date End Date Winston Villatoro OD [facility] 701 [facility] [address] [place] [address] PCP - Ophthalmology Ophthalmology 02/11/13 Denise Woodson Ra, APRN HOOP MAKER [address] [place] [address] PCP - General Family Practice 09/21/20 Denise Woodson Ra, APRN HOOP MAKER [address] [place] [address] Assigned PCP 07/17/20 Usha Simon APRN HOOP MAKER 9 [facility] [id number] [place] [address] Nurse Practitioner Neurological Surgery 01/24/24 Dangelo Salinas MD [address] [place] [address] Neurology 01/27/24 Anastasia Stearns, RN Lead Faucet Polisher 02/06/24 Germaine Lopez, W Community Health Worker Primary Care - CC 02/18/24 Robin Zepeda MD 909 [facility] [place], [place] [address] Assigned Neuroscience Provider 03/08/24 05/07/24 documented as of this encounter
--- OUTSIDE RECORDS SUMMARY | 2024-05-17 01:26 | XMS_ITS | Encounter Summary ---
Author Organization [place] Address [address] [place] [address] Care Team Providers Care Thickener Operator Name Role Phone Winston Villatoro OD Unavailable [phone] Denise Woodson Ra, APRN TAPERING MACHINE OPERATOR Unavailable [phone] Denise Woodson Ra, APRN TAPERING MACHINE OPERATOR Primary Care Provid er Usha Simon APRN TAPERING MACHINE OPERATOR Unavailable [phone] Dangelo Salinas MD Unavailable Anastasia Stearns RN Unavailable [phone] Germaine Lopez CHW Unavailable [phone] Robin Zepead MD Unavailable [phone] Reason for Visit * Rehab Therapy Integrated Services (Routine) - Authorized Specialty Diagnoses / Procedures Referred By Nila shah Referred To Contact Diagnoses Cerebrovascular accident (CVA), unspecified mechanism (H) [address] [address] Referral ID Status Reason Start Date Expiration Date V isits Requested Visits Authorized [id number] Authorized 09/16/2023 09/15/2024 365 365 Encounter Details Date Type Department Care Team (Late st Contact Info) Description 03/11/2024 2:15 PM CDT Therapy Visit [address] [id number] Danya You, AMAIRANI [address] [place] [address] [address] [place] [address] Isabel Beaulieu, OTR [address] [address] Cerebrovascular accident (CVA), unspecified mechanism (H) (Primary [...] How often do you attend anabaptist or cheondoism serv ices? Never 02/28/2024 Do [...] PHQ-2 Score 4 02/12/2024 [facility] of Occupat ional Health - Occupational Stress [...] (e.g. SBT, MoCA), SDMT, BiVaba Scan Course, [place] Making, Dynavision (all modes), foot tap measure, [...] tasks safely and accurately (e.g. meal preparation, certified financial planner, medication management, driving, work). Rationale In order [...] Goal Progress Goal added and progressing. Administered [employer] part 1 activity with pt 100% [...] detail, memory, divided/alternating attention, sequencing, prioritization), facilitated [employer] executive function activity with pt completing part 1 (alphabetizing, quantity of each order, total quantity for the month) with distractions throughout to simulate realistic, busy home/workenvironment. Pt 100% accurate today with alphabetizing, calculating individual quantities, and calculating total quantity without use of calculator. Pt does well with staying on task, managing and organizing information for [employer], using strategies of chunking information to calculate total quantity, and using extra paper to organize her thoughts. Will plan to further progress in future sessions. Patient Response/Progress Alcon reports feeling really good after [employer] activity today - You challenged me in all the right ways today, and it felt good. Thank you! Goals 4-5 progressing Cognitive Skills Intervention 1st 15 Minutes Timed (46137) 15 Skilled Intervention Skilled facilitation of executive function task to promote skills for IND withhigher level IADL and work-based tasks Therapeutic Activity Therapeutic Activity Minutes (19563) 30 Skilled Intervention Skilled reassessment, education in [...] Description 05/26/2024 8:30 AM CDT [facility] [address] [place] [address] Denise Woodson Ra, MANAGER PHYSICAL TAPERING MACHINE OPERATOR [address] [place], [place] [id number] 06/08/2024 8:30 AM CDT [facility] [address] [place] [address] Denise Woodson Ra, MANAGER PHYSICAL TAPERING MACHINE OPERATOR [address] [place] [address] 06/26/2024 2:40 PM CDT Office Visit [facility] [address] [facility] [address] [place] [phone] Danna Cardenas PA-C [address] [facility] [place] [address] documented as of this encounter Goals Goal [...] Health weekly - PT, OT and BUSINESS LIBRARIAN - PCP appointment 05/26/24 & 06/08/24 - Stroke Neurology Dr. Hoyos 04/14/24 #[phone] - Epilepsy Neurology Dr. Barcenas 05/05/24 follow up recommended in 2 months: 07/05/24 TBD. #[phone] - Vascular Dr. Zambrano 05/01/24 - follow up recommended in 6 months: 11/11/24 TBD #[phone]. - MTM if covered by insurance TBD [...] clinic with 24/7 after hours services available. Detective Investigator will remain available as needed. documented as of this encounter Visit Diagnoses Diagnosis Cerebrovascular accident (CVA), unspecified mechanism (H)- Primary documented in this encounter Additional Health Concerns Active Problems Noted Date Diagnosed Date Increased risk of re-admission 02/18/2024 Assessment Noted Time PHQ-9 Depression Total Score: 16 024 3:27 PM CDT documented as of this encounter Care Teams Thickener Operator Relationship Specialty Start Date End Date Winston Villatoro OD [facility] [place] [address] [place] [address] PCP - Ophthalmology Ophthalmology 02/11/13 Denise Woodson Ra, APRN TAPERING MACHINE OPERATOR [address] [place] [address] PCP - General Family Practice 09/21/20 Denise Woodson Ra, APRN TAPERING MACHINE OPERATOR [address] [facility] [place] [address] Assigned PCP 07/17/20 Usha Simon APRN TAPERING MACHINE OPERATOR [address] [place] [address]28155 Nurse Practitioner Neurological Surgery 01/24/24 Dangelo Salinas MD [address] [facility] [address] [facility] [address] [place], [place] [id number] Neurology 01/27/24 Anastasia Stearns, RN Lead Detective Investigator 02/06/24 Germaine Lopez, CHW Community Health Worker Primary Care - CC 02/18/24 Robin Zepdea MD [address] [address] Assigned Neuroscience Provider 03/08/24 05/07/24 documented as of this encounter
--- OUTSIDE RECORDS SUMMARY | 2024-05-17 01:26 | XMS_ITS | Encounter Summary ---
Author Organization [place] Address [address] [place] [address] Care Team Providers Care It Security Specialist Name Role Phone ShaunaWinston OD Unavailable [phone] Denise Woodson Ra, APRN RETAIL MORTGAGE BANKER Unavailable [phone] Denise Woodson Ra, APRN RETAIL MORTGAGE BANKER Primary Care Provid er Usha Simon APRN RETAIL MORTGAGE BANKER Unavailable [phone] Dangelo Salinas MD Unavailable Anastasia Stearns RN Unavailable [phone] Germaine Lopez CHW Unavailable [phone] Robin Zepeda MD Unavailable [phone] Encounter Details Date Type Department Care Team [...] How often do you attend tenriism or temple serv ices? Never 02/28/2024 Do [...] Answer Date Recorded PHQ-2 Score 0 03/17/2024 [facility] of Occupat ional Health - [...] CDT Office Visit [facility] [address] [place] [phone] Denise Woodson Ra, CUSTOMER EXPERIENCE LEADER RETAIL MORTGAGE BANKER [address] [place], [place] [address] 06/08/2024 8:30 AM CDT Office Visit [facility] [address] [place] [phone] Denise Woodson Ra, CUSTOMER EXPERIENCE LEADER RETAIL MORTGAGE BANKER [address] [place] [address] 06/26/2024 2:40 PM CDT Office Visit [facility] [address] [facility] [address] [place] [phone] Danna Cardenas PA-C 22[address] [place], [place] [address] documented as of this encounter Goals Goal [...] Health weekly - PT, OT and DIRECTOR SUPPLY - PCP appointment 05/26/24 & 06/08/24 - Stroke Neurology Dr. Hoyos 04/14/24 #[phone] - Epilepsy Neurology Dr. Barcenas 05/05/24 follow up recommended in 2 months: 07/05/24 TBD. #[phone] - Vascular Dr. Zambrano 05/01/24 - follow up recommended in 6 months: 11/11/24 TBD #[phone]. - MTM if covered by insurance TBD [...] 24/7 after hours services available. Professor Of Biological Sciences will remain available as needed. documented as of this encounter Visit Diagnoses Not on filedocumented in this encounter Additional Health Concerns Active Problems Noted Date Diagnosed Date Increased risk of re-admission 02/18/2024 Assessment Noted Time PHQ-9 Depression Total Score: 16 024 3:27 PM CDT documented as of this encounter Care Teams It Security Specialist Relationship Specialty Start Date End Date Winston Villatoro OD [facility] [place] [address] [place] [address] PCP - Ophthalmology Ophthalmology 02/11/13 Denise Woodson Ra, CUSTOMER EXPERIENCE LEADER RETAIL MORTGAGE BANKER [address] [place] [address] PCP - General Family Practice 09/21/20 Denise Woodson Ra, APRN RETAIL MORTGAGE BANKER [address] [place] [address] Assigned PCP 07/17/20 Usha Simon APRN RETAIL MORTGAGE BANKER [address] [place] [address] [address] Nurse Practitioner Neurological Surgery 01/24/24 Dangelo Salinas MD [address] [place] [address] Neurology 01/27/24 Anastasia Stearns, RN Lead Professor Of Biological Sciences 02/06/24 Germaine Lopez, W Community Health Worker Primary Care - CC 02/18/24 Robin Zepeda MD [address] [address] Assigned Neuroscience Provider 03/08/24 05/07/24 documented as of this encounter
--- OUTSIDE RECORDS SUMMARY | 2024-05-17 01:27 | XMS_ITS | Encounter Summary ---
Author Organization [place] Address [address] [place] [address] Care Team Providers Care Extrusion Die Corrector Name Role Phone Winston Villatoro OD Unavailable [phone] Denise Woodson Ra, APRN VP DIRECTOR OF CREATIVE STRATEGY Unavailable [phone] Denise Woodson Ra, APRN VP DIRECTOR OF CREATIVE STRATEGY Primary Care Provid er Usha Simon APRN VP DIRECTOR OF CREATIVE STRATEGY Unavailable [phone] Dangelo Salinas MD Unavailable Usha Simon APRN VP DIRECTOR OF CREATIVE STRATEGY Unavailable [phone] Anastasia Stearns RN Unavailable [phone] Germaine Lopez CHW Unavailable [phone] Encounter Details Date Type Department Care Team [...] Upcoming Encounters Date Type Department Care Team ([facility] Contact Info) Description 05/26/2024 8:30 AM CDT [facility] [address] [place] [phone] Denise Woodson Ra, RADIO STATION MANAGER VP DIRECTOR OF CREATIVE STRATEGY [address] [place], [place] [address] 06/08/2024 8:30 AM CDT Office Visit [facility] [address] [place] [phone] Denise Woodson Ra, RADIO STATION MANAGER VP DIRECTOR OF CREATIVE STRATEGY [address] [place], [place] [address] 06/26/2024 2:40 PM CDT Office Visit [facility] [address] [facility] [address] [place] [phone] Danna Cardenas PA-C 6405 [place], [place] [address] documented as of this encounter Goals Goal [...] Mental Health weekly - PT, OT and TIP STITCHER - PCP appointment 05/26/24 & 06/08/24 - Stroke Neurology Dr. Hoyos 04/14/24 #[phone] - Epilepsy Neurology Dr. Barcenas 05/05/24 follow up recommended in 2 months: 07/05/24 TBD. #[phone] - Vascular Dr. Zambrano 05/01/24 - follow up recommended in 6 months: 11/11/24 TBD #[phone]. - MTM if covered by insurance TBD [...] clinic with 24/7 after hours services available. Visiting Nurse will remain available as needed. documented as of this encounter Visit Diagnoses Not on filedocumented in this encounter Additional Health Concerns Active Problems Noted Date Diagnosed Date Increased risk of re-admission 02/18/2024 Assessment Noted Time PHQ-9 Depression Total Score: 16 024 3:27 PM CDT documented as of this encounter Care Teams Extrusion Die Corrector Relationship Specialty Start Date End Date Winston Villatoro OD [facility] [address] [facility] [address] [place] [address] PCP - Ophthalmology Ophthalmology 02/11/13 Denise Woodson Ra, APRN VP DIRECTOR OF CREATIVE STRATEGY [address] [address] [place] [address] PCP - General Family Practice 09/21/20 Denise Woodson Ra, APRN VP DIRECTOR OF CREATIVE STRATEGY [address] [place] [address] Assigned PCP 07/17/20 Usha Simon APRN VP DIRECTOR OF CREATIVE STRATEGY [address] [place] [address] [address] Nurse Practitioner Neurological Surgery 01/24/24 Dangelo Salinas MD [address] [place] [address] Neurology 01/27/24 Usha Simon APRN VP DIRECTOR OF CREATIVE STRATEGY [address] [facility]121[place] [address] Assigned Neuroscience Provider 02/06/24 03/07/24 Anastasia Stearns, RN Lead Visiting Nurse 02/06/24 Germaine Lopez, CHW Community Health Worker Primary Care - CC 02/18/24 documented as of this encounter
--- OUTSIDE RECORDS SUMMARY | 2024-05-17 01:27 | XMS_ITS | Encounter Summary ---
Author Organization [place] Address [address] [place] [address] Care Team Providers Care Outreach Educator Name Role Phone Winston Villatoro OD Unavailable [phone] Denise Woodson Ra, APRN INFANT CHILDCARE PROVIDER Unavailable [phone] Denise Woodson Ra RECRUITING SCHEDULER INFANT CHILDCARE PROVIDER Primary Care Provid er Usha Simon APRN INFANT CHILDCARE PROVIDER Unavailable [phone] Dangelo Salinas MD Unavailable Usha Simon RECRUITING SCHEDULER INFANT CHILDCARE PROVIDER Unavailable [phone] Anastasia Stearns RN Unavailable Germaine Lopez CHW Unavailable Reason for Visit * Reason Comments Flank Pain Encounter Details Date Type Department Care Team (Late st Contact Info) Description 03/03/2024 11:14 AM CDT - 03/03/2024 2:19 PM CDT Emergency [facility] Emergency Dept [address] [place] [address] Brayan Reich MD [facility] [address] [place] [address] Right flank pain; Right sided abdominal pain [...] How often do you attend spiritism or samaritan serv ices? Never 02/28/2024 Do [...] Date Recorded PHQ-2 Score 4 02/12/2024 [facility] [...] directed by your provider today. Before using ctpi-dta-wzsroua medications, ask your provider and make sure [...] sent through Care Everywhere. * Flank Pain (Iraqi) documented in this encounter Medications at Time [...] patch free for 12 hrs daily. 01/22/2024 meclizine (ANTIVERT) 25 MG tablet Take 1 [...] 2 times daily 60 tablet 02/14/2024 03/06/2024 magnesium oxide 200 MG TABS Ok to take magnesium supplement of your preference 01/24/2024 05/14/2024 rosuvastatin (CRESTOR) 20 MG tabletIndications:Cer ebrovascular accident [...] Heart cath, closure atrial septal defect RW CADDIE SUPERVISOR (abstracted) Excision of lipoma on chest wall [...] Bilirubin Urine Negative Ketones Urine Negative Specific [place] Urine 1.005 Blood Urine Trace (*) pH [...] is identified. PETRONA HARRIS MD SYSTEM ID: [id number] EKG ECG was taken 03/03/24 at 11:41:13 Vent rate: 64 bpm NJ interval: 160 ms QRS duration: 92 ms QT/Qtc-Baz: 402/414 ms P-R-T axes: 53 69 28 Normal sinus rhythm Possible left atrial enlargement Borderline ECG When compared to 02/13/24: No significant changes noted. ED Course Medications Administered Medications alum & mag hydroxide-simethicone (MAALOX) suspension 15 mL (15 mLs Oral $Given 03/03/24 1154) famotidine (PEPCID) tablet 20 mg (20 mg Oral $Given 03/03/24 1154) CT SCAN FLUSH (64 mLs Intravenous $Given 03/03/24 1225) iopamidol (ISOVUE-370) solution 500 mL (100 mLs Intravenous $Given 03/03/24 1211) Procedures Procedures Discussion of Management None Social Determinants of Health adding to complexity of care None ED Course Medical Decision Making / Diagnosis [facility] Diagnoses: None MIPS None [facility] Alcon Zamora is a 48 year old [...] statements to me. Brayan Reich MD 03/03/24 4554 Brayan Reich MD 03/03/24 9827 documented in this encounter Plan of Treatment Upcoming Encounters Date Type Department Care Team (Late st Contact Info) Description 05/26/2024 8:30 AM CDT [facility] [address] [place] [phone] Denise Woodson Ra, RECRUITING SCHEDULER INFANT CHILDCARE PROVIDER [address] [facility] [place], [place] [id number] 06/08/2024 8:30 AM CDT Office Visit [facility] [address] [place] [phone] Denise Woodson Ra, RECRUITING SCHEDULER INFANT CHILDCARE PROVIDER [address] [facility] [place], [place] [id number] 06/26/2024 2:40 PM CDT Office Visit [facility] [address] [facility] [address] [place] [phone] Danna Cardenas PA-C 6405 [place], [place] [address] Pending Results Name Type Priority Associated Diagnoses [...] Health weekly - PT, OT and COAL HAULER - PCP appointment 05/26/24 & 06/08/24 - Stroke Neurology Dr. Hoyos 04/14/24 #[phone] - Epilepsy Neurology Dr. Barcenas 05/05/24 follow up recommended in 2 months: 07/05/24 TBD. #[phone] - Vascular Dr. Zambrano 05/01/24 - follow up recommended in 6 months: 11/11/24 TBD #[phone]. - MTM if covered by insurance TBD [...] clinic with / after hours services available. Irrigation District Manager will remain available as needed. documented [...] is identified. PETRONA HARRIS MD SYSTEM ID: [id number] Narrative 03/03/2024 2:[address] ABDOMEN [...] is identified. PETRONA HARRIS MD SYSTEM ID: [id number] Brayan Reich MD IMG CT ORDERABLES * CBC with platelets and differential (03/03/2024 11:49 AM CDT) WBC Count 7.6 4.0 - 11.0 10e3/uL [...] NRBCs per 100 WBC 0 <1 /100 06/18/2 024 11:55 AM CDT [facility] Absolute [...] MD LAB - BLOOD ORDERABL ES LABORATORY [facility] Acute Care Lab [address] [facility] Lab (1st floor, no room number) [place] [address], [facility] * Troponin T, High Sensitivity (03/03/2024 [...] LAB - BLOOD ORDERABL ES [facility] Acute Care Lab [address] [facility] Lab (1st floor, no room number) [place] [address], [facility] * Comprehensive metabolic panel (03/03/2024 11:49 [...] LAB - BLOOD ORDERABL ES [facility] [address] [facility] (1[facility] floor, no room number) [place] [address], [facility] * HCG qualitative urine (03/03/2024 10:27 AM CDT) hCG Urine Qualitative Negative Negative PRATEEK 03/03/2024 12:05 PM CDT [facility] Comment:This test is for scr eening purposes. Results should be interpreted along with the clinical picture. Confirmation testing is available if warranted by ordering [id number], HCG Quantitative . Urine URINE SPECIMEN OBTAINED BY CLEAN CATCH PROCEDURE / Unknown Non-blood Collection / Unknown 03/03/2024 10:27 AM CDT 03/03/2024 10:33 AM CDT Brayan Reich MD LAB - URINE ORDERABL ES LABORATORY [facility] Care Lab [address] Lab (1st floor, no room number) [place] [address] * (ABNORMAL) UA with [...] mg/dL 03/03/2024 10:40 AM CDT LABORATORY Specific [place] Urine 1.005 1.003 - 1.035 03/03/2024 10:40 [...] MD LAB - URINE ORDERABL ES LABORATORY [facility] Acute Care Lab [address] Lab (1st floor, no room number) [place] [address], [facility] documented in this encounter Visit [...] 1 dose 1218 ($Given - Provi andreia: Hactusiiq David) documented in this encounter Additional Health Concerns Active Problems Noted Date Diagnosed Date Increased risk of re-admission 02/18/2024 Assessment Noted Time PHQ-9 Depression Total Score: 16 024 3:27 PM CDT documented as of this encounter Care Teams Outreach Educator Relationship Specialty Start Date End Date Winston Villatoro OD [facility] [address] [facility] [address] [place] [address] PCP - Ophthalmology Ophthalmology 02/11/13 Denise Woodson Ra, BARRERA INFANT CHILDCARE PROVIDER [address] [place] [place] [address] PCP - General Family Practice 09/21/20 Denise Woodson Ra, APRN INFANT CHILDCARE PROVIDER [address] [place] [address] Assigned PCP 07/17/20 Usha Simon APRN INFANT CHILDCARE PROVIDER 9[address] [facility] [place], [place] [address] Nurse Practitioner Neurological Surgery 01/24/24 Dangelo Salinas MD [address] [place], [place] [id number] Neurology 01/27/24 Usha Simon APRN INFANT CHILDCARE PROVIDER [address] [place] [address], [place] [address] Assigned Neuroscience Provider 02/06/24 03/07/24 Anastasia Stearns, RN Lead Irrigation District Manager 02/06/24 Germaine Lopez, W Community Health Worker Primary Care - CC 02/18/24 documented as of this encounter
--- OUTSIDE RECORDS SUMMARY | 2024-05-17 01:27 | XMS_ITS | Encounter Summary ---
Author Organization [facility] Address [address] [place] [address] Care Team Providers Care High [employer] Foreign Language Tutor Name Role Phone Winston Villatoro OD Unavailable Denise Woodson Ra, APRN MACHINERY RIGGER Unavailable + [phone] Denise Woodson Ra, APRN MACHINERY RIGGER Primary Care Provid er Usha Simon APRN MACHINERY RIGGER Unavailable [phone] Dangelo Salinas MD Unavailable Usha Simon APRN MACHINERY RIGGER Unavailable [phone] Anastasia Stearns RN Unavailable Germaine Lopez CHW Unavailable [phone] Reason for Referral * Diagnostic Imaging CT Scan (Routine) - Closed Specialty Diagnoses / Procedures Referred By Contac t Referred To Contact Radiology. Diagnoses Flank pain Abdominal pain, epigastric Procedures CT Abdomen Pelvis w Contrast Janna Jo APRN CNP [address] [place] [address] Referral ID Status Reason Start Date Expiration Date Visits Re quested Visits Authorized [id number] Closed 02/28/2024 02/27/2025 1 1 Reason for Visit * Diagnostic Imaging CT Scan (Routine) - Closed Specialty Diagnoses / Procedures Referred By Contac t Referred To Contact Radiology. Diagnoses Flank pain Abdominal pain, epigastric Procedures CT Abdomen Pelvis w Contrast Janna Jo APRN MACHINERY RIGGER [address] [place] [address] Referral ID Status Reason Start Date Expiration Date Visits Re quested Visits Authorized [id number] Closed 02/28/2024 02/27/2025 1 1 Encounter Details Date Type Department Care Team (Latest Contact Info) Description 02/28/2024 10:46 AM CDT - 02/28/2024 11:59 PM CDT Hospital Encounter [facility] [address] [place] [address] Janna Jo APRN MACHINERY RIGGER [address] [place] [address] Flank pain; Abdominal pain, epigastric Discharge Disposition: [...] How often do you attend hindu or shinto serv ices? Never 02/28/2024 Do [...] AM CDT Office Visit [facility] [address] [place] [address] Denise Woodson Ra, GLOVE FACTORY SEWER MACHINERY RIGGER [address] [place], [place] [address] 06/08/2024 8:30 AM CDT [facility] [address] [place] [address] Denise Woodson Ra, GLOVE FACTORY SEWER MACHINERY RIGGER [address] [place] [address] 06/26/2024 2:40 PM CDT Office Visit [facility] Heart [facility] [address] [facility] [address] [place] [phone] Danna Cardenas PA-C [address] [place], [place] [address] documented as of this encounter Goals Goal [...] Mental Health weekly - PT, OT and PRODUCT PLANNER - PCP appointment 05/26/24 & 06/08/24 - Stroke Neurology Dr. Hoyos 04/14/24 #[phone] - Epilepsy Neurology Dr. Barcenas 05/05/24 follow up recommended in 2 months: 07/05/24 TBD. #[phone] - Vascular Dr. Zambrano 05/01/24 - follow up recommended in 6 months: 11/11/24 TBD #[phone]. - MTM if covered by insurance TBD [...] with 24/7 after hours services available. Cloth Hand will remain available as needed. documented [...] identified. PETRONA HARRIS MD Janna Chaudharineal [facility] CT ORDER NASRIN documented in this encounter [...] documented as of this encounter Care Teams High School Foreign Language Tutor Relationship Specialty Start Date End Date Winston Villatoro OD [facility] [address] [facility] [address] [place] [address] PCP - Ophthalmology Ophthalmology 02/11/13 Denise Woodson Ra, APRN MACHINERY RIGGER [address] [place] [address] PCP - General Family Practice 09/21/20 Denise Woodson Ra, APRN MACHINERY RIGGER [address] [place] [address] Assigned PCP 07/17/20 Usha Simon APRN MACHINERY RIGGER [address] [facility] [address] Nurse Practitioner Neurological Surgery 01/24/24 Dangelo Salinas MD [address] [place] [address] Neurology 01/27/24 Usha Simon APRN MACHINERY RIGGER 909 [facility] [address] Assigned Neuroscience Provider 02/06/24 03/07/24 Anastasia Stearns, RN Lead Cloth Hand 02/06/24 Germaine Lopez, W Community Health Worker Primary Care - CC 02/18/24 documented as of this encounter
--- OUTSIDE RECORDS SUMMARY | 2024-05-17 01:27 | XMS_ITS | Encounter Summary ---
Author Organization [facility] Address [address] [place] [address] Care Team Providers Care Calker Name Role Phone Winston Villatoro OD Unavailable [phone] Denise Woodson Ra, APRN X RAY PHYSICIAN Unavailable [phone] Denise Woodson Ra, APRN X RAY PHYSICIAN Primary Care Provid er Usha Simon APRN X RAY PHYSICIAN Unavailable [phone] Dangelo Salinas MD Unavailable Usha Simon APRN X RAY PHYSICIAN Unavailable [phone] Anastasia Stearns RN Unavailable [phone] Germaine Lopez CHW Unavailable [phone] Encounter Details Date Type Department Care Team [...] Upcoming Encounters Date Type Department Care Team ([facility] Contact Info) Description 05/26/2024 8:30 AM CDT [facility] [address] [place] [phone] Denise Woodson Ra, FREELANCE DATA ENTRY X RAY PHYSICIAN [address] [place], [place] [address] 06/08/2024 8:30 AM CDT Office Visit [facility] [place] [address] [place] [address] Denise Woodson Ra, FREELANCE DATA ENTRY X RAY PHYSICIAN [address] [place], [place] 9288[address] 06/26/2024 2:40 PM CDT Office Visit [facility] Heart [facility] [address] [facility] [address] [place] [phone] Danna Cardenas PA-C 6[address] [place], [place] [address] documented as of this encounter Goals Goal [...] Mental Health weekly - PT, OT and NETWORK TECHNICIAN - PCP appointment 05/26/24 & 06/08/24 - Stroke Neurology Dr. Hoyos 04/14/24 #[phone] - Epilepsy Neurology Dr. Barcenas 05/05/24 follow up recommended in 2 months: 07/05/24 TBD. #[phone] - Vascular Dr. Zambrano 05/01/24 - follow up recommended in 6 months: 11/11/24 TBD #[phone]. - MTM if covered by insurance TBD [...] clinic with 24/7 after hours services available. Brick Tester will remain available as needed. documented as of this encounter Visit Diagnoses Not on filedocumented in this encounter Additional Health Concerns Active Problems Noted Date Diagnosed Date Increased risk of re-admission 02/18/2024 Assessment Noted Time PHQ-9 Depression Total Score: 16 024 3:27 PM CDT documented as of this encounter Care Teams Calker Relationship Specialty Start Date End Date Winston Villatoro OD [facility] [address] [facility] [address] [place] [address] PCP - Ophthalmology Ophthalmology 02/11/13 Denise Woodson Ra, APRN X RAY PHYSICIAN [address] [address] [facility] [place] [id number] PCP - General Family Practice 09/21/20 Denise Woodson Ra, APRN X RAY PHYSICIAN [address] [place] [id number] Assigned PCP 07/17/20 Usha Simon APRN X RAY PHYSICIAN [address] [place], [place] [address], [place] [address] Nurse Practitioner Neurological Surgery 01/24/24 Dangelo Salinas MD [address] [place] [address] Neurology 01/27/24 Usha Simon APRN X RAY PHYSICIAN [address] [facility]121[place], [place] [address] Assigned Neuroscience Provider 02/06/24 03/07/24 Anastasia Stearns, RN Lead Brick Tester 02/06/24 Germaine Lopez, CHW Community Health Worker Primary Care - CC 02/18/24 documented as of this encounter
--- OUTSIDE RECORDS SUMMARY | 2024-05-17 01:27 | XMS_ITS | Encounter Summary ---
Author Organization [facility] Address [address] [place] [address] Care Team Providers Care Folder And Notcher Name Role Phone ShaunaWinston OD Unavailable [phone] Denise Woodson Ra, APRN METAL MODEL BUILDER Unavailable [phone] Denise Woodson Ra, APRN METAL MODEL BUILDER Primary Care Provid er Usha Simon APRN METAL MODEL BUILDER Unavailable [phone] Dangelo Salinas MD Unavailable Usha Simon APRN METAL MODEL BUILDER Unavailable [phone] Anastasia Stearns RN Unavailable [phone] Encounter Details Date Type Department Care Team [...] CDT Office Visit [facility] [place] [address] [facility] [place] [phone] Denise Woodson Ra, CABLE TOOL OPERATOR METAL MODEL BUILDER [address] [facility] [place] [address] 06/08/2024 8:30 AM CDT Office Visit [facility] [place] [address] [facility] [place] [address] Denise Woodson Ra, CABLE TOOL OPERATOR METAL MODEL BUILDER [address] [place] [place], [place] [address] 06/26/2024 2:40 PM CDT Office Visit [facility] [address] [facility] [address] [place] [address] Danna Cardenas PA-C 6[address] [place], [place] [address] documented as of this encounter Visit Diagnoses Not on filedocumented in this encounter Additional Health Concerns Assessment Noted Time PHQ-9 Depression Total Score: 16 024 3:27 PM CDT documented as of this encounter Care Teams Folder And Notcher Relationship Specialty Start Date End Date Winston Villatoro OD [facility] [place] [address] [place] [address] PCP - Ophthalmology Ophthalmology 02/11/13 Denise Woodson Ra, CABLE TOOL OPERATOR METAL MODEL BUILDER [address] [place] [address] PCP - General Family Practice 09/21/20 Denise Woodson Ra, APRN METAL MODEL BUILDER [address] [place] [address] Assigned PCP 07/17/20 Usha Simon APRN METAL MODEL BUILDER [address] [place] [address] [place] [address] Nurse Practitioner Neurological Surgery 01/24/24 Dangelo Salinas MD [address] [place] [address] Neurology 01/27/24 Usha Simon APRN METAL MODEL BUILDER 909 [facility] [place], [place] 2[address] Assigned Neuroscience Provider 02/06/24 03/07/24 Anastasia Stearns, RN Lead Wildlife Removal Specialist 02/06/24 documented as of this encounter
--- OUTSIDE RECORDS SUMMARY | 2024-05-17 01:27 | XMS_ITS | Encounter Summary ---
Author Organization [facility] Address [address] [place] [address] Care Team Providers Care Sagger Soak Name Role Phone Winston Villatoro OD Unavailable [phone] Denise Woodson Ra, APRN INSULATION CUTTER Unavailable [phone] Denise Woodson Ra FRONT END ENGINEER INSULATION CUTTER Primary Care Provid er Usha Simon APRN INSULATION CUTTER Unavailable [phone] Dangelo Salinas MD Unavailable Usha Simon APRN INSULATION CUTTER Unavailable [phone] Anastasia Stearns RN Unavailable [phone] Germaine Lopez CHW Unavailable [phone] Reason for Visit * Rehab Therapy Integrated Services (Routine) - Authorized Specialty Diagnoses / Procedures Referred By Nila shah Referred To Contact Diagnoses Cerebrovascular accident (CVA), unspecified mechanism (H) [address] [address] Referral ID Status Reason Start Date Expiration Date V isits Requested Visits Authorized [id number] Authorized 09/16/2023 09/15/2024 365 365 Encounter Details Date Type Department Care Team (Late st Contact Info) Description 02/19/2024 3:00 PM CDT Therapy Visit [address] [address] Danya You, PA [address] [place] [address] [address] [place] [address] Isabel Beaulieu, JAIMIE [address] [address] Cerebrovascular accident (CVA), unspecified mechanism (H) (Primary [...] AM CDT [facility] [address] [place] [phone] Denise Woodson Ra, FRONT END ENGINEER INSULATION CUTTER [address] [facility] [place] [address] 06/08/2024 8:30 AM CDT [facility] [address] [place] [phone] Denise Woodson Ra, BARRERA INSULATION CUTTER [address] [facility] [place], [place] [address] 06/26/2024 2:40 PM CDT Office Visit [facility] [place] [address] [facility] [address] [place] [phone] Danna Cardenas PA-C 9265 [facility] [place] [address] documented as of this encounter Goals Goal [...] Mental Health weekly - PT, OT and EXTRACTOR TENDER RAW STOCK - PCP appointment 05/26/24 & 06/08/24 - Stroke Neurology Dr. Hoyos 04/14/24 #[phone] - Epilepsy Neurology Dr. Barcenas 05/05/24 follow up recommended in 2 months: 07/05/24 TBD. #[phone] - Vascular Dr. Zambrano 05/01/24 - follow up recommended in 6 months: 11/11/24 TBD #[phone]. - MTM if covered by insurance TBD [...] clinic with / after hours services available. Granite Block Paver will remain available as needed. documented as of this encounter Visit Diagnoses Diagnosis Cerebrovascular accident (CVA), unspecified mechanism (H)- Primary documented in this encounter Additional Health Concerns Active Problems Noted Date Diagnosed Date Increased risk of re-admission 02/18/2024 Assessment Noted Time PHQ-9 Depression Total Score: 16 024 3:27 PM CDT documented as of this encounter Care Teams Sagger Soak Relationship Specialty Start Date End Date Winston Villatoro OD [facility] [place] [address] [place] [address] PCP - Ophthalmology Ophthalmology 02/11/13 Denise Woodson Ra, APRN INSULATION CUTTER [address] [place] [address] PCP - General Family Practice 09/21/20 Denise Woodson Ra, APRN INSULATION CUTTER [address] [place] [address] Assigned PCP 07/17/20 Usha Simon APRN INSULATION CUTTER [address] [place] [address] Nurse Practitioner Neurological Surgery 01/24/24 Dangelo Salinas MD [address] [place] [address] Neurology 01/27/24 Usha Simon APRN INSULATION CUTTER [address] [place] [address] Assigned Neuroscience Provider 02/06/24 03/07/24 Anastasia Stearns, RN Lead Granite Block Paver 02/06/24 Germaine Lopez, CHW Community Health Worker Primary Care - CC 02/18/24 documented as of this encounter
--- OUTSIDE RECORDS SUMMARY | 2024-05-17 01:27 | XMS_ITS | Encounter Summary ---
Author Organization [facility] Address [address] [place] [address] Care Team Providers Care Shirt Marker Name Role Phone Winston Villatoro OD Unavailable [phone] Denise Woodson Ra, APRN WOOD TILE INSTALLATION HELPER Unavailable + [phone] Denise Woodson Ra LUMPIA WRAPPER MAKER WOOD TILE INSTALLATION HELPER Primary Care Provid er Usha Simon APRN WOOD TILE INSTALLATION HELPER Unavailable [phone] Dangelo Salinas MD Unavailable Usha Simon LUMPIA WRAPPER MAKER WOOD TILE INSTALLATION HELPER Unavailable [phone] Anastasia Stearns RN Unavailable [phone] Germaine Lopez CHW Unavailable Encounter Details Date Type Department Care Team (Late st Contact Info) Description 03/02/2024 [facility] [address] [place] [address] Liliane Mcnair, HAYDEN [address] [place] [address] Hematuria, unspecified type (Primary Dx) [...] How often do you attend voodoo or shinto serv ices? Never 02/28/2024 Do [...] Answer Date Recorded PHQ-2 Score 4 02/12/2024 [facility] - [...] AM CDT Office Visit [facility] [address] [place] [phone] Denise Woodson Ra, APRN WOOD TILE INSTALLATION HELPER [address] [place] [address] 06/08/2024 8:30 AM CDT Office Visit [facility] [address] [place] [address] Denise Woodson Ra, APRN WOOD TILE INSTALLATION HELPER [address] [place] [address] 06/26/2024 2:40 PM CDT [facility] Visit [facility] [place] [address] [place] [address] Danna Cardenas PA-C 6[address] [facility] [place] [address] Scheduled Orders Name Type Priority Associated Diagnoses [...] Mental Health weekly - PT, OT and RETAIL SALES ASSOCIATE - PCP appointment 05/26/24 & 06/08/24 - Stroke Neurology Dr. Hoyos 04/14/24 #[phone] - Epilepsy Neurology Dr. Barcenas 05/05/24 follow up recommended in 2 months: 07/05/24 TBD. #[phone] - Vascular Dr. Zambrano 05/01/24 - follow up recommended in 6 months: 11/11/24 TBD #[phone]. - MTM if covered by insurance TBD [...] clinic with 24/7 after hours services available. Vehicle Calibration Engineer will remain available as needed. documented as of this encounter Visit Diagnoses Diagnosis Hematuria, unspecified type- Primary documented in this encounter Additional Health Concerns Active Problems Noted Date Diagnosed Date Increased risk of re-admission 02/18/2024 Assessment Noted Time PHQ-9 Depression Total Score: 16 05/29/2 024 3:27 PM CDT documented as of this encounter Care Teams Shirt Marker Relationship Specialty Start Date End Date Winston Villatoro OD [facility] [place] [address] [place] [address] PCP - Ophthalmology Ophthalmology 02/11/13 Denise Woodson Ra, APRN WOOD TILE INSTALLATION HELPER [address] [place] [address] PCP - General Family Practice 09/21/20 Denise Woodson Ra, APRN WOOD TILE INSTALLATION HELPER [address] [place] [address] Assigned PCP 07/17/20 Usha Simon APRN WOOD TILE INSTALLATION HELPER [address] [place] [address] Nurse Practitioner Neurological Surgery 01/24/24 Dangelo Salinas MD [address] [place] [address] Neurology 01/27/24 Usha Simon APRN WOOD TILE INSTALLATION HELPER [address] [place] [address] Assigned Neuroscience Provider 02/06/24 03/07/24 Anastasia Stearns, RN Lead Vehicle Calibration Engineer 02/06/24 Germaine Lopez, CHW Community Health Worker Primary Care - CC 02/18/24 documented as of this encounter
--- OUTSIDE RECORDS SUMMARY | 2024-05-17 01:27 | XMS_ITS | Encounter Summary ---
Author Organization [facility] Address [address] [place] [address]. [place] [address] Care Team Providers Care Flight Engineer Helicopter Name Role Phone Winston Villatoro OD Unavailable [phone] Denise Woodson Ra, APRN DISTRICT EXTENSION SERVICE AGENT Unavailable [phone] Denise Woodson Ra COPYING MACHINE REPAIRER DISTRICT EXTENSION SERVICE AGENT Primary Care Provid er Usha Simon APRN DISTRICT EXTENSION SERVICE AGENT Unavailable [phone] Dangelo Salinas MD Unavailable Usha Simon APRN DISTRICT EXTENSION SERVICE AGENT Unavailable [phone] Anastasia Stearns RN Unavailable [phone] Reason for Visit * Rehab Therapy Integrated Services (Routine) - Authorized Specialty Diagnoses / Procedures Referred By Contac t Referred To Contact Diagnoses Cerebrovascular accident (CVA), unspecified mechanism (H) [address] [address] Referral ID Status Reason Start Date Expiration Date V isits Requested Visits Authorized [id number] Authorized 09/16/2023 09/15/2024 365 365 Encounter Details Date Type Department Care Team (Latest Contact Info) Description 02/17/2024 2:45 PM CDT Therapy Visit [address] [phone] Danya You, AMAIRANI [address] [place] [address] Aliya Kim, TOLL SERVICE OBSERVER [address] [facility] [address] [place] [address] Cerebrovascular accident (CVA), unspecified mechanism (H) (Primary [...] AM CDT Office [facility] [address] [place] [phone] Denise Woodson Ra, BARRERA DISTRICT EXTENSION SERVICE AGENT [address] [place] [address] 06/08/2024 8:30 AM CDT Office [facility] [address] [place] [phone] Denise Woodson Ra, BARRERA DISTRICT EXTENSION SERVICE AGENT [address] [place] [address] 06/26/2024 2:40 PM CDT Office Visit [facility] [address] [facility] [address] [place] [address] Danna Cardenas PA-C [address] [facility] [place] [address] documented as of this encounter Visit Diagnoses Diagnosis Cerebrovascular accident (CVA), unspecified mechanism (H)- Primary Cognitive communication deficit documented in this encounter Additional Health Concerns Assessment Noted Time PHQ-9 Depression Total Score: 16 024 3:27 PM CDT documented as of this encounter Care Teams Flight Engineer Helicopter Relationship Specialty Start Date End Date Winston Villatoro OD [facility] [place] [address] [place] [address] PCP - Ophthalmology Ophthalmology 02/11/13 Denise Woodson Ra, APRN DISTRICT EXTENSION SERVICE AGENT [address] [place] [address] PCP - General Family Practice 09/21/20 Denise Woodson Ra, APRN DISTRICT EXTENSION SERVICE AGENT [address] [place] [address] Assigned PCP 07/17/20 Usha Simon APRN DISTRICT EXTENSION SERVICE AGENT [address] [place] [address] Nurse Practitioner Neurological Surgery 01/24/24 Dangelo Salinas MD [address] [facility] [address] [id number] Neurology 01/27/24 Usha Simon APRN DISTRICT EXTENSION SERVICE AGENT [address] [place] [address] Assigned Neuroscience Provider 02/06/24 03/07/24 Anastasia Stearns, RN Lead Cloth Grader 02/06/24 documented as of this encounter
--- OUTSIDE RECORDS SUMMARY | 2024-05-17 01:27 | XMS_ITS | Encounter Summary ---
Author Organization [facility] Address [address] [place] [address] Care Team Providers Care Transitional Care Manager Name Role Phone Winston Villatoro OD Unavailable Denise Woodson Ra, APRN PARKING ASSISTANT Unavailable + [phone] Denise Woodson Ra, APRN PARKING ASSISTANT Primary Care Provid er Usha Simon APRN PARKING ASSISTANT Unavailable [phone] Dangelo Salinas MD Unavailable Usha Simon APRN PARKING ASSISTANT Unavailable [phone] Anastasia Stearns RN Unavailable Germaine Lopez CHW Unavailable Reason for Referral * Diagnostic Imaging CT Scan (Routine) - Closed Specialty Diagnoses / Procedures Referred By Nila shah Referred To Contact Radiology. Diagnoses Flank pain Abdominal pain, epigastric Procedures CT Abdomen Pelvis w Contrast Janna Jo APRN CNP [address] [place] [address] Referral ID Status Reason Start Date Expiration Date Visits Re quested Visits Authorized [id number] Closed 02/28/2024 02/27/2025 1 1 Reason for Visit * Reason Comments Abdominal Pain Epigastric pain X 3 days * Consultation (Routine: Next available opening) - Pending Review Specialty Diagnoses / Procedures Referred By Nila t Referred To Contact Diagnoses Flank pain Abdominal pain, epigastric Liliane Mcnair PA-C [address] [place] [address] Ri Acute & Diag [facility] [address] [place] [address] Referral ID Status Reason Start Date Expiration Date V isits Requested Visits Authorized [id number] Pending Review 02/27/2024 02/26/2025 1 1 Encounter Details Date Type Department Care Team (Late st Contact Info) Description 02/28/2024 10:00 AM CDT Office Visit [facility] [address] [facility] [address] [place] [address] Janna Jo, BIOCHEMICAL ENGINEER [facility] [address] [place] [address] Flank pain; Abdominal pain, epigastric; [...] How often do you attend holiness or adventist serv ices? Never 02/28/2024 Do [...] Answer Date Recorded PHQ-2 Score 4 02/12/2024 [facility] - Occupational Stress Questionnaire Answer Date [...] Instructions * Patient Instructions* Janna Jo APRN PARKING ASSISTANT - 02/28/2024 10:00 AM CDT Results for [...] Status --------- ------ CBC with platelets and d...[[id number]] Final result Please view results for these [...] Status --------- ------ CBC with platelets and d...[[id number]] Final result Please view results for these [...] 05/26/2024 8:30 AM CDT Office Visit [address] [place] [address] Denise Woodson Ra, BIOCHEMICAL ENGINEER PARKING ASSISTANT [address] [place] [address] 06/08/2024 8:30 AM CDT [facility] [address] [place] [address] Denise Woodson Ra, BIOCHEMICAL ENGINEER PARKING ASSISTANT [address] [place] [address] 06/26/2024 2:40 PM CDT Office Visit [facility] [address] [facility] [address] [place] [address] Danna Cardenas PA-C [address] [place] [address] documented as of this encounter Goals Goal [...] Mental Health weekly - PT, OT and METAL TANK BUILDER - PCP appointment 05/26/24 & 06/08/24 - Stroke Neurology Dr. Hoyos 04/14/24 #[phone] - Epilepsy Neurology Dr. Barcenas 05/05/24 follow up recommended in 2 months: 07/05/24 TBD. #[phone] - Vascular Dr. Zambrano 05/01/24 - follow up recommended in 6 months: 11/11/24 TBD #[phone]. - MTM if covered by insurance TBD [...] clinic with 24/7 after hours services available. Enrichment Specialist will remain available as needed. documented [...] Jo APRN [facility] CT ORDER NASRIN * CBC with platelets [...] 10:47 AM CDT Janna Maranda Jo APRN PARKING ASSISTANT LAB - BLOOD ORDERABLES [facility] [address] Lab (1st floor, no room number) [address] * Erythrocyte sedimentation rate auto (02/28/2024 10:38 AM CDT) Erythrocyte Sedimentation Rate 20 0 - 20 mm/hr 02/28/2024 11:18 AM CDT [facility] Blood VENOUS LINE / Unknown Venipuncture / Unknown 02/28/2024 10:38 AM CDT 02/28/2024 10:47 AM CDT Janna Maranda Jo APRN PARKING ASSISTANT LAB - BLOOD ORDERABLES Performing Organization Address City/[facility]/ZIP Co de Phone Number [facility] [address] Lab (1st floor, no room number) [address] * (ABNORMAL) CRP inflammation (02/28/2024 10:38 AM CDT) CRP Inflammation 6.29(H) <5.00 mg/L 02/28/2024 11:39 AM CDT [facility] Blood VENOUS LINE / Unknown Venipuncture / Unknown 02/28/2024 10:38 AM CDT 02/28/2024 10:47 AM CDT Janna Maranda Jo APRN PARKING ASSISTANT LAB - BLOOD ORDERABLES [facility] [address] Lab (1st floor, no room number) [address] * (ABNORMAL) Comprehensive metabolic panel (02/28/2024 10:38 AM CDT) [facility] Sodium 139 135 - 145 mmol/L 02/28/2024 11:39 AM CDT [facility] Comment:Reference [...] LAB - BLOOD ORDERABLES Performing Organization Address City/[facility]/ZIP Co de Phone Number [facility] [address] Lab (1st floor, no room number) [address] [place] [address] * TSH with free T4 reflex (02/28/2024 10:27 AM CDT) TSH 3.87 0.30 - 4.20 uIU/mL 02/28/2024 11:56 AM CDT [facility] Blood ARTERIAL LINE / Unknown Venipuncture / Unknown 02/28/2024 10:27 AM CDT 02/28/2024 11:08 AM CDT Janna Jo APRN, CNP LAB - BLOOD ORDERABLES [facility] [address] Lab (1st floor, no room number) [address] documented in this encounter Visit Diagnoses [...] documented as of this encounter Care Teams Transitional Care Manager Relationship Specialty Start Date End Date Winston Villatoro OD [facility] [place] [address] [place] [address] PCP - Ophthalmology Ophthalmology 02/11/13 Denise Woodson Ra, APRN PARKING ASSISTANT [address] [place] [address] PCP - General Family Practice 09/21/20 Denise Woodson Ra, APRN PARKING ASSISTANT [address] [facility] [place] [address] Assigned PCP 07/17/20 Usha Simon APRN PARKING ASSISTANT [address] [address] Nurse Practitioner Neurological Surgery 01/24/24 Dangelo Salinas MD [address] [place] [address] Neurology 01/27/24 Usha Simon APRN PARKING ASSISTANT [address] [address] Assigned Neuroscience Provider 02/06/24 03/07/24 Anastasia Stearns, RN Lead Enrichment Specialist 02/06/24 Germaine Lopez, W Community Health Worker Primary Care - CC 02/18/24 documented as of this encounter
--- OUTSIDE RECORDS SUMMARY | 2024-05-17 01:27 | XMS_ITS | Encounter Summary ---
Author Organization [facility] Address [address] [place] [address] Care Team Providers Care Training Development Manager Name Role Phone Winston Villatoro OD Unavailable [phone] Denise Woodson Ra, APRN QUALITY ASSURANCE SUPERVISOR [place] Unavailable + [phone] Denise Woodson Ra HOME HOUSEKEEPER QUALITY ASSURANCE SUPERVISOR [place] Primary Care Provid er Usha Simon APRN QUALITY ASSURANCE SUPERVISOR [place] Unavailable Dangelo Salinas MD Unavailable Usha Simon HOME HOUSEKEEPER QUALITY ASSURANCE SUPERVISOR [place] Unavailable Anastasia Stearns RN Unavailable [phone] Germaine Lopez CHW Unavailable [phone] Reason for Referral * Consultation (Routine: Next available opening) - Pending Review Specialty Diagnoses / Procedures Referred By Nila shah Referred To Contact Diagnoses Flank pain Abdominal pain, epigastric Liliane Mcnair, PANilesC [address] [place] [address] Ri Acute & Diag [facility] [address] [facility] [address] [place] [address] Referral ID Status Reason Start Date Expiration Date V isits Requested Visits Authorized [id number] Pending Review 02/27/2024 02/26/2025 1 1 Question Answer Preferred Location: [facility] Acute & Diagnostic Services - [place] Service: Day of diagnosis - Future date [...] Description 02/27/2024 3:00 PM CDT Office Visit [facility] [place] [address] [place] [address] Liliane Mcnair PA-C [address] [place] [address] Flank pain [...] How often do you attend latter-day or hinduism serv ices? Never 02/28/2024 Do [...] Answer Date Recorded PHQ-2 Score 4 02/12/2024 [facility] - Occupational Stress [...] note were not included. Preventive Care Visit [facility] Liliane Mcnair PA-C, Physician County Historian Feb 27, 2024 Assessment & Plan Flank [...] 02/27/2024 2:27 PM Additional Questions Roomed by Nomra Yang CMA Accompanied by N/A 02/27/2024 2:27 [...] in any way. Thank you for choosing [facility] for your health care needs, Liliane Mcnair PA-C documented in this encounter Plan of Treatment Upcoming Encounters Date Type Department Care Team (Late st Contact Info) Description 05/26/2024 8:30 AM CDT Office Visit [facility] [address] [place] [phone] Denise Woodson Ra, HOME HOUSEKEEPER [facility] [address] [place], [place] [address] 06/08/2024 8:30 AM CDT [facility] [address] [place] [phone] Denise Woodson Ra, HOME HOUSEKEEPER QUALITY ASSURANCE SUPERVISOR [place] [address] [place] [address] 06/26/2024 2:40 PM CDT Office Visit [facility] [address] [facility] [address] [place] [phone] Danna Cardenas PA-C [address] [place], [place] [address] Scheduled Referrals Name Type Priority Associated Diagnoses [...] Mental Health weekly - PT, OT and TELEVISION ACTOR - PCP appointment 05/26/24 & 06/08/24 - Stroke Neurology Dr. Hoyos 04/14/24 #[phone] - Epilepsy Neurology Dr. Barcenas 05/05/24 follow up recommended in 2 months: 07/05/24 TBD. #[phone] - Vascular Dr. Zambrano 05/01/24 - follow up recommended in 6 months: 11/11/24 TBD #[phone]. - MTM if covered by insurance TBD [...] with 24/7 after hours services available. Director Nursing Service will remain available as needed. documented as [...] LAB - BLOOD ORDER NASRIN [facility] [place] [facility] [address] [facility], [address] * Lipase (02/27/2024 5:27 PM CDT) Lipase 24 13 - 60 U/L 02/28/2024 8:32 PM CDT [facility] Blood BLOOD SPECIMEN / Unknown Venipuncture / Unknown 02/27/2024 5:27 PM CDT 02/27/2024 5:27 PM CDT Liliane Mcnair PA-C LAB - BLOOD ORDER NASRIN [facility] [place] [facility] [address] [facility], [address] * CBC with platelets and differential (02/27/2024 5:26 PM CDT) WBC Count 9.0 4.0 - 11.0 10e3/uL [...] Mcnair PA-C LAB - BLOOD ORDER NASRIN LABOR[facility] [address] [facility] [address] [place] [address], [facility] [phone] * (ABNORMAL) UA Microscopic with Reflex to [...] LAB - URINE ORDER NASRIN [facility] [address] [facility] [address] [place] [address] [phone] * (ABNORMAL) UA Macroscopic with reflex to [...] 02/27/2024 3:52 PM CDT [facility] Specific [place] Urine 1.025 1.003 - 1.035 02/27/2024 3:52 [...] LAB - URINE ORDER NASRIN [facility] [address] [facility] [address] [place] [address], [facility] [phone] documented in this encounter Visit Diagnoses Diagnosis Flank pain- Primary Abdominal pain, unspecified site Abdominal pain, epigastric Cerebrovascular accident (CVA), unspecified mechanism (H) documented in this encounter Additional Health Concerns Active Problems Noted Date Diagnosed Date Increased risk of re-admission 02/18/2024 Assessment Noted Time PHQ-9 Depression Total Score: 16 024 3:27 PM CDT documented as of this encounter Care Teams Training Development Manager Relationship Specialty Start Date End Date Winston Villatoro OD [facility] [place] [address] [facility] [address] [place] [address] PCP - Ophthalmology Ophthalmology 02/11/13 Denise Woodson Ra, APRN QUALITY ASSURANCE SUPERVISOR [place] [address] [place] [address] PCP - General Family Practice 09/21/20 Denise Woodson Ra, APRN QUALITY ASSURANCE SUPERVISOR [place] [address] [place] [address] Assigned PCP 07/17/20 Usha Simon APRN QUALITY ASSURANCE SUPERVISOR [place] [address] [place], [place] [address] [address] Nurse Practitioner Neurological Surgery 01/24/24 Dangelo Salinas MD [address] [place] [address] Neurology 01/27/24 Usha Simon APRN QUALITY ASSURANCE SUPERVISOR [place] [address] [facility] [address] Assigned Neuroscience Provider 02/06/24 03/07/24 Anastasia Stearns, RN Lead Director Nursing Service 02/06/24 Germaine Lopez, W Community Health Worker Primary Care - CC 02/18/24 documented as of this encounter
--- OUTSIDE RECORDS SUMMARY | 2024-05-17 01:27 | XMS_ITS | Encounter Summary ---
Author Organization [facility] Address [address] [place] [address]. [place] [address] Care Team Providers Care Desk Clerks Supervisor Name Role Phone Winston Villatoro OD Unavailable [phone] Denise Woodson Ra, APRN SOAKING PIT OPERATOR Unavailable + [phone] Denise Woodson Ra UNIT ASSEMBLER SOAKING PIT OPERATOR Primary Care Provid er Usha Simon APRN SOAKING PIT OPERATOR Unavailable + [phone] Dangelo Salinas MD Unavailable Usha Simon APRN SOAKING PIT OPERATOR Unavailable + [phone] Anastasia Stearns RN Unavailable [phone] Germaine Lopez CHW Unavailable [phone] Encounter Details Date Type Department Care Team (Late st Contact Info) Description 02/27/2024 MyC Medical Advice [facility] [address] [place] [address] Denise Woodson Ra, APRN SOAKING PIT OPERATOR [address] [place] [address] Social History Tobacco Use Types [...] How often do you attend quaker or sikhism serv ices? Never 02/28/2024 Do you belong [...] Date Recorded PHQ-2 Score 4 02/12/2024 [facility] of Occupat ional Health [...] Description 05/26/2024 8:30 AM CDT [facility] [address] [place] [address] Denise Woodson Ra, UNIT ASSEMBLER [facility] [address] [facility] [place] [address] 06/08/2024 8:30 AM CDT [facility] [address] [place] [address] Denise Woodson Ra, UNIT ASSEMBLER SOAKING PIT OPERATOR [address] [place] [address] 06/26/2024 2:40 PM CDT Office Visit [facility] [address] [facility] [address] [place] [phone] Danna Cardenas PA-C [address] [facility] [place] [address] documented as of this encounter Goals Goal Patient Goal Type Associated Problems Recent Progress Patient-Stated? Author I would like additional resources and support to manage my health and prevent future avoidable ED visits/hospital admissions Care Plan Increased risk of re-admission 10%( 3:13 PM CDT) Anastasia Talamnates, RN Note: Barriers: diagnosis of multiple, chronic, complex medical conditions, provider availability - wait time to complete appointments, etc. Strengths: motivated, engaged in care coordination Patient expressed understanding of goal: yes Action steps to achieve this goal: 1. I will follow up with my providers as scheduled/recommended - Mental Health weekly - PT, OT and EMAIL MARKETING ASSISTANT - PCP appointment 05/26/24 & 06/08/24 - Stroke Neurology Dr. Hoyos 04/14/24 #[phone] - Epilepsy Neurology Dr. Barcenas 05/05/24 follow up recommended in 2 months: 07/05/24 TBD. #[phone] - Vascular Dr. Zambrano 05/01/24 - follow up recommended in 6 months: 11/11/24 TBD #[phone]. - MTM if covered by insurance TBD [...] clinic with 24/7 after hours services available. Territory Sales Representative will remain available as needed. documented as of this encounter Visit Diagnoses Not on filedocumented in this encounter Additional Health Concerns Active Problems Noted Date Diagnosed Date Increased risk of re-admission 02/18/2024 Assessment Noted Time PHQ-9 Depression Total Score: 16 024 3:27 PM CDT documented as of this encounter Care Teams Desk Clerks Supervisor Relationship Specialty Start Date End Date Winston Villatoro OD [facility] [place] [address] [place] [address] PCP - Ophthalmology Ophthalmology 02/11/13 Denise Woodson Ra UNIT ASSEMBLER SOAKING PIT OPERATOR [address] [place] [address] PCP - General Family Practice 09/21/20 Denise Woodson Ra UNIT ASSEMBLER SOAKING PIT OPERATOR [address] [place] [address] Assigned PCP 07/17/20 Usha Simon APRN SOAKING PIT OPERATOR [address] [address] Nurse Practitioner Neurological Surgery 01/24/24 Dangelo Salinas MD [address] [place] [address] Neurology 01/27/24 Usha Simon APRN SOAKING PIT OPERATOR [address] [address] Assigned Neuroscience Provider 02/06/24 03/07/24 Anastasia Stearns, RN Lead Territory Sales Representative 02/06/24 Germaine Lopez, CHW Community Health Worker Primary Care - CC 02/18/24 documented as of this encounter
--- OUTSIDE RECORDS SUMMARY | 2024-05-17 01:27 | XMS_ITS | Encounter Summary ---
Author Organization [place] Address [address] [place] [address] Care Team Providers Care Building Inspection Engineer Name Role Phone ShaunaWinston OD Unavailable [phone] Denise Woodson Ra, APRN POINT OF SALE ASSOCIATE Unavailable [phone] Denise Woodson Ra, APRN POINT OF SALE ASSOCIATE Primary Care Provid er Usha Simon APRN POINT OF SALE ASSOCIATE Unavailable [phone] Dangelo Salinas MD Unavailable Usha Simon APRN POINT OF SALE ASSOCIATE Unavailable [phone] Anastasia Stearns RN Unavailable [phone] Encounter Details Date Type Department Care Team [...] 8:30 AM CDT Office Visit [facility] [place] [address] [facility] [place] [address] Denise Woodson Ra, WOOD PRODUCTS MANUFACTURER POINT OF SALE ASSOCIATE [address] [facility] [place] [address] 06/08/2024 8:30 AM CDT Office Visit [facility] [place] [address] [place] [address] Densie Woodson Ra, WOOD PRODUCTS MANUFACTURER POINT OF SALE ASSOCIATE [address] [place], [place] [address] 06/26/2024 2:40 PM CDT Office [facility] [address] [facility] [address] [place] [address] Danna Cardenas PA-C 6[address] [place], [place] [address] documented as of this encounter Visit Diagnoses Not on filedocumented in this encounter Additional Health Concerns Assessment Noted Time PHQ-9 Depression Total Score: 16 024 3:27 PM CDT documented as of this encounter Care Teams Building Inspection Engineer Relationship Specialty Start Date End Date Winston Villatoro OD [facility] [place] [address] [place] [address] PCP - Ophthalmology Ophthalmology 02/11/13 Denise Woodson Ra, WOOD PRODUCTS MANUFACTURER POINT OF SALE ASSOCIATE [address] [place] [address] PCP - General Family Practice 09/21/20 Denise Woodson Ra, APRN POINT OF SALE ASSOCIATE [address] [place] [address] Assigned PCP 07/17/20 Usha Simon APRN POINT OF SALE ASSOCIATE [address] [place] [address] Nurse Practitioner Neurological Surgery 01/24/24 Dangelo Salinas MD [address] [place] [address] Neurology 01/27/24 Usha Simon APRN POINT OF SALE ASSOCIATE [address] [facility] [place], [place] [address] Assigned Neuroscience Provider 02/06/24 03/07/24 Anastasia Stearns, RN Lead Second Class Welder 02/06/24 documented as of this encounter
--- OUTSIDE RECORDS SUMMARY | 2024-05-17 01:27 | XMS_ITS | Encounter Summary ---
Author Organization [place] Address [address] [place] [address] Care Team Providers Care Photo Journalist Name Role Phone Winston Villatoro OD Unavailable [phone] Denise Woodson Ra, APRN SUPERVISOR INCISING Unavailable [phone] Denise Woodson Ra, APRN SUPERVISOR INCISING Primary Care Provid er Usha Simon APRN SUPERVISOR INCISING Unavailable [phone] Dangelo Salinas MD Unavailable Usha Simon APRN SUPERVISOR INCISING Unavailable [phone] Anastasia Stearns RN Unavailable [phone] Germaine Lopez CHW Unavailable [phone] Encounter Details Date Type Department Care Team [...] often do you attend jehovah's witness or orthodoxy serv ices? Never 02/28/2024 Do [...] Score 4 02/12/2024 [facility] ional Health - Occupational [...] AM CDT Office Visit [facility] [address] [place] [address] Denise Woodson Ra, UTILITIES MANAGER SUPERVISOR INCISING [address] [place] [address] 06/08/2024 8:30 AM CDT Office Visit [facility] [address] [place] [phone] Denise Woodson Ra, UTILITIES MANAGER SUPERVISOR INCISING [address] [place] [address] 06/26/2024 2:40 PM CDT Office Visit [facility] [address] [facility] [address] [place] [phone] Danna Cardenas PA-C 6[address] [place], [place] [address] documented as of this encounter Goals Goal [...] Health weekly - PT, OT and CERTIFIED APPLIANCE SERVICE TECHNICIAN - PCP appointment 05/26/24 & 06/08/24 - Stroke Neurology Dr. Hoyos 04/14/24 #[phone] - Epilepsy Neurology Dr. Barcenas 05/05/24 follow up recommended in 2 months: 07/05/24 TBD. #[phone] - Vascular Dr. Zambrano 05/01/24 - follow up recommended in 6 months: 11/11/24 TBD #[phone]. - MTM if covered by insurance TBD [...] clinic with 24/7 after hours services available. Manager Utilities will remain available as needed. documented as of this encounter Visit Diagnoses Not on filedocumented in this encounter Additional Health Concerns Active Problems Noted Date Diagnosed Date Increased risk of re-admission 02/18/2024 Assessment Noted Time PHQ-9 Depression Total Score: 16 024 3:27 PM CDT documented as of this encounter Care Teams Photo Journalist Relationship Specialty Start Date End Date Winston Villatoro OD [facility] [place] [address] [place] [address] PCP - Ophthalmology Ophthalmology 02/11/13 Denise Woodson Ra, UTILITIES MANAGER SUPERVISOR INCISING [address] [place] [address] PCP - General Family Practice 09/21/20 Denise Woodson Ra, APRN SUPERVISOR INCISING [address] [place] [address] Assigned PCP 07/17/20 Usha Simon APRN SUPERVISOR INCISING [address] [place] [address] [address] Nurse Practitioner Neurological Surgery 01/24/24 Dangelo Salinas MD [address] [place] [address] Neurology 01/27/24 Usha Simon APRN SUPERVISOR INCISING [address] [place] [address] Assigned Neuroscience Provider 02/06/24 03/07/24 Anastasia Stearns, RN Lead Manager Utilities 02/06/24 Germaine Lopez, CHW Community Health Worker Primary Care - CC 02/18/24 documented as of this encounter
--- OUTSIDE RECORDS SUMMARY | 2024-05-17 01:28 | XMS_ITS | Encounter Summary ---
Author Organization [place] Address [address] [place] [address]. [place] [address] Care Team Providers Care Assembly Member Name Role Phone Winston Villatoro OD Unavailable [phone] Denise Woodson Ra, APRN INDUSTRIAL PARAMEDIC Unavailable + [phone] Denise Woodson Ra, APRN INDUSTRIAL PARAMEDIC Primary Care Provid er Usha Simon APRN INDUSTRIAL PARAMEDIC Unavailable + [phone] Dangelo Salinas MD Unavailable Usha Simon APRN INDUSTRIAL PARAMEDIC Unavailable + [phone] Anastasia Stearns RN Unavailable +[phone] Encounter Details Date Type Department Care Team (Late st Contact Info) Description 02/14/2024 [facility] [address] [place] [address] Denise Woodson Ra, APRN INDUSTRIAL PARAMEDIC [address] [place] [address] Social History Tobacco Use Types [...] AM CDT Office Visit [facility] [address] [place] [phone] Denise Woodson Ra, DIVERSIFIED CROPS FARMWORKER INDUSTRIAL PARAMEDIC [address] [place], [place] 8[address]2968 06/08/2024 8:30 AM CDT [facility] [address] [place] [address] Denise Woodson Ra, DIVERSIFIED CROPS FARMWORKER INDUSTRIAL PARAMEDIC [address] [place] [address] 06/26/2024 2:40 PM CDT Office Visit [facility] 6405 [facility] [address] [place] [address] Danna Cardenas PA-C 6405 [place], [place] 7[address] documented as of this encounter Visit Diagnoses Not on filedocumented in this encounter Additional Health Concerns Assessment Noted Time PHQ-9 Depression Total Score: 16 024 3:27 PM CDT documented as of this encounter Care Teams Assembly Member Relationship Specialty Start Date End Date Winston Villatoro OD [facility] [place] [address] [facility] [address] [place] [address] PCP - Ophthalmology Ophthalmology 02/11/13 Denise Woodson Ra, APRN INDUSTRIAL PARAMEDIC [address] [place] [place], [place] 064[address]68 PCP - General Family Practice 09/21/20 Denise Woodson Ra, APRN INDUSTRIAL PARAMEDIC [address] [place] [place], [place] 7743368 Assigned PCP 07/17/20 Usha Simon APRN INDUSTRIAL PARAMEDIC [address] 030815 Nurse Practitioner Neurological Surgery 01/24/24 Dangelo Salinas MD [address] [place], [place] [id number] Neurology 01/27/24 Usha Simon APRN INDUSTRIAL PARAMEDIC [address] 874705 Assigned Neuroscience Provider 02/06/24 03/07/24 Anastasia Stearns, RN Lead Associate Store Director 02/06/24 documented as of this encounter
--- OUTSIDE RECORDS SUMMARY | 2024-05-17 01:28 | XMS_ITS | Encounter Summary ---
Author Organization [place] Address [address] [place] [address]. [place] [address] Care Team Providers Care Furniture Assembler Name Role Phone Winston Villatoro OD Unavailable [phone] Denise Woodson Ra, APRN RUBBER PRESS OPERATOR Unavailable + [phone] Denise Woodson Ra, APRN RUBBER PRESS OPERATOR Primary Care Provid er Usha Simon APRN RUBBER PRESS OPERATOR Unavailable + [phone] Dangelo Salinas MD Unavailable Usha Simon APRN RUBBER PRESS OPERATOR Unavailable + [phone] Anastasia Stearns RN Unavailable +[phone] Encounter Details Date Type Department Care Team (Late st Contact Info) Description 02/06/2024 [facility] Medical Advice [facility] [address] [place] [address] Denise Woodson Ra, APRN RUBBER PRESS OPERATOR [address] [place] [address] H/O prolonged Q-T interval on [...] 8:44 AM CDT Scheduled. Qing Copeland Lead Donkey Ride Operator [facility] * Telephone Encounter - Leslie Mcclellan RN - 02/06/2024 12:51 PM CDT Please see MC and advise. Leslie Mcclellan RN, BSN [facility] documented in this encounter Plan of Treatment Upcoming Encounters Date Type Department Care Team (Late st Contact Info) Description 05/26/2024 8:30 AM CDT [facility] [address] [place] [phone] Denise Woodson Ra, APRN RUBBER PRESS OPERATOR [address] [place] [address] 06/08/2024 8:30 AM CDT [facility] [address] [place] [address] Denise Woodson Ra, APRN RUBBER PRESS OPERATOR [address] [place] [address] 06/26/2024 2:40 PM CDT Office Visit [facility] [place] [address] [facility] [address] [place] [phone] Danna Cardenas PA-C 6405 [facility] [place] [address] documented as of this encounter Visit Diagnoses Diagnosis H/O prolonged Q-T interval on ECG- Primary Personal history of other diseases of circulatory system documented in this encounter Additional Health Concerns Assessment Noted Time PHQ-9 Depression Total Score: 14 024 9:33 AM CDT documented as of this encounter Care Teams Furniture Assembler Relationship Specialty Start Date End Date Winston Villatoro OD [facility] [place] [address] [place] [address] PCP - Ophthalmology Ophthalmology 02/11/13 Denise Woodson Ra, APRN RUBBER PRESS OPERATOR [address] [place] [address] PCP - General Family Practice 09/21/20 Denise Woodson Ra, APRN RUBBER PRESS OPERATOR [address] [place] [address] Assigned PCP 07/17/20 Usha Simon APRN RUBBER PRESS OPERATOR [address] [place] [address] 784935 Nurse Practitioner Neurological Surgery 01/24/24 Dangelo Salinas MD [address] [facility] [address] [place], [place] [id number] Neurology 01/27/24 Usha Simon APRN RUBBER PRESS OPERATOR [address] 800[address] Assigned Neuroscience Provider 02/06/24 03/07/24 Anastasia Steanrs, RN Lead Switchboard Receptionist 02/06/24 documented as of this encounter
--- OUTSIDE RECORDS SUMMARY | 2024-05-17 01:28 | XMS_ITS | Encounter Summary ---
Author Organization [place] Address [address] [place] [address] Care Team Providers Care Cash Application Representative Name Role Phone Yung Madrigal MD Unavailable Unavailable Winston Villatoro OD Unavailable [phone] Denise Woodson Ra, APRN FRONT FACER Unavailable +[phone] Denise Woodson Ra CONCRETING SUPERVISOR FRONT FACER Primary Care Provid er Usha Simon APRN FRONT FACER Unavailable +[phone] Dangelo Salinas MD Unavailable Usha Simon APRN FRONT FACER Unavailable +- [phone] Anastasia Stearns RN Unavailable [phone] Germaine Lopez CHW Unavailable +[phone] Robin Zepeda MD Unavailable +[phone] Lisa Zambrano MD Unavailable +- [phone] Raul Hoyos MD Unavailable Reason for Visit * Reason Comments Medication Refill Encounter Details Date Type Department Care Team (Late st Contact Info) Description 01/07/2023 [facility] [address] [place] [address] Denise Woodson Ra, APRN FRONT FACER [address] [place] [address] Medication Refill Social History Tobacco [...] as final attempt to schedule. Karla Villafanamount [place] * Telephone Encounter - Karla Morales - 01/17/2023 8:59 AM CDT LVM requesting a call back for an appt (physical). One more attempt will be made. Karla Gross [place] * Telephone Encounter - Arianna Lo - 01/10/2023 3:33 PM CDT Sent PakS[employer]et message requesting a call back for an appt. Two more attempts will be made. Arianna Villafanamount Sole [place] * Telephone Encounter - Leslie Mcclellan RN [...] 0 0 0 Leslie Mcclellan RN, BSN [facility] documented in this encounter Plan of Treatment Upcoming Encounters Date Type Department Care Team (Late st Contact Info) Description 05/26/2024 8:30 AM CDT [facility] [address] [place] [phone] Denise Woodson Ra, CONCRETING SUPERVISOR FRONT FACER [address] [facility], [place] [id number] 06/08/2024 8:30 AM CDT Office Visit [facility] [address] [place] [phone] Denise Woodson Ra, CONCRETING SUPERVISOR FRONT FACER [address] [facility] [place], [place] [id number] 06/26/2024 2:40 PM CDT Office Visit [facility] 6405 [facility] [address] [place] [address] Danna Cardenas PA-C 6405 [place], [place] 316135 documented as of this encounter Visit Diagnoses Diagnosis Moderate persistent asthma without complication Unspecified asthma documented in this encounter Additional Health Concerns Assessment Noted Time PHQ-9 Depression Total Score: 0 06/23/20 21 4:11 PM CDT documented as of this encounter Care Teams Cash Application Representative Relationship Specialty Start Date End Date Yung Madrigal MD RETIRED PCP - Orthopaedics Orthopedics 08/26/12 01/20/[address] [facility] [place] 701 [facility] [address] [place] [address] PCP - Ophthalmology Ophthalmology 02/11/13 Denise Woodson Ra, APRN FRONT FACER [address] [address] [address] PCP - General Family Practice 09/21/20 Denise Woodson Ra, APRN FRONT FACER [address] [place] [address] Assigned PCP 07/17/20 Usha Simon APRN FRONT FACER [address] 999785 Nurse Practitioner Neurological Surgery 01/24/24 Dangelo Salinas MD [address] [facility] [address] [place], [place] [id number] Neurology 01/27/24 Usha Simon APRN FRONT FACER [address] [id number] Assigned Neuroscience Provider 02/06/24 03/07/24 Anastasia Stearns, RN Lead Legislative Aide 02/06/24 Germaine Lopez, W Community Health Worker Primary Care - CC 02/18/24 Robin Zepeda MD [address] [id number] Assigned Neuroscience Provider 03/08/24 05/07/24 Lisa Zambrano MD [address] [place] [address] Assigned Heart and Vascular Provider 05/08/24 Raul Hoyos MD 909 [facility] [id number] [place] [address] Assigned Neuroscience Provider 05/08/24 documented as of this encounter
--- OUTSIDE RECORDS SUMMARY | 2024-05-17 01:28 | XMS_ITS | Encounter Summary ---
Author Organization [place] Address [address] [place] [address] Care Team Providers Care Overnight Associate Name Role Phone ShaunaWinston moralez OD Unavailable [phone] Denise Woodson Ra, APRN RESEARCH RN SPEC Unavailable + [phone] Denise Woodson Ra HEALTH INFORMATION INTERNSHIP RESEARCH RN SPEC Primary Care Provid er Usha Simon APRN RESEARCH RN SPEC Unavailable Dangelo Salinas MD Unavailable Usha Simon APRN RESEARCH RN SPEC Unavailable [phone] Anastasia Stearns RN Unavailable [phone] Germaine Lopez CHW Unavailable Robin Zepeda MD Unavailable Lisa Zambrano MD Unavailable Raul Hoyos MD Unavailable Encounter Details Date Type Department Care Team (Late st Contact Info) Description 01/27/2024 [facility] Neu[facility] [address] [place] [address] Phoebe Del Cid Social History [...] 05/26/2024 8:30 AM CDT Office [facility] [place] [address] [facility] [place] [address] Denise Woodson Ra, HEALTH INFORMATION INTERNSHIP RESEARCH RN SPEC [address] [facility] [place], [place] [id number] 06/08/2024 8:30 AM CDT Office [facility] [place] [address] [facility] [place] [address] Denise Woodson Ra, BARRERA RESEARCH RN SPEC [address]10 [facility] [place], [place] 16[address] 06/26/2024 2:40 PM CDT Office Visit [facility] 6405 [facility] [address] [place] [address] Danna Cardenas PA-C 6405 [place], [place] 850905 documented as of this encounter Visit Diagnoses Not on filedocumented in this encounter Additional Health Concerns Assessment Noted Time PHQ-9 Depression Total Score: 0 06/23/20 21 4:11 PM CDT documented as of this encounter Care Teams Overnight Associate Relationship Specialty Start Date End Date Winston Villatoro OD [facility] [place] [address] [place] [address] PCP - Ophthalmology Ophthalmology 02/11/13 Denise Woodson Ra, HEALTH INFORMATION INTERNSHIP RESEARCH RN SPEC [address] [facility] [place] [address] PCP - General Family Practice 09/21/20 Denise Woodson Ra, APRN RESEARCH RN SPEC [address] [place] [address] Assigned PCP 07/17/20 Usha Simon APRN RESEARCH RN SPEC [address] [address] Nurse Practitioner Neurological Surgery 01/24/24 Dangelo Salinas MD [address] [place] [address] Neurology 01/27/24 Usha Simon APRN RESEARCH RN SPEC [address] [place] [address] Assigned Neuroscience Provider 02/06/24 03/07/24 Anastasia Stearns, RN Lead Talent Acquisition Sourcer 02/06/24 Germaine Lopez, W Community Health Worker Primary Care - CC 02/18/24 Robin Zepeda MD [address] [address] Assigned Neuroscience Provider 03/08/24 05/07/24 Lisa Zambrano MD [address] [place] [address] Assigned Heart and Vascular Provider 05/08/24 Raul Hoyos MD 909 [facility] [id number] [place] [address] Assigned Neuroscience Provider 05/08/24 documented as of this encounter
--- OUTSIDE RECORDS SUMMARY | 2024-05-17 01:28 | XMS_ITS | Encounter Summary ---
Author Organization [place] Address [address] [place] [address] Care Team Providers Care Assistant Administrator Name Role Phone Winston Villatoro OD Unavailable [phone] Denise Woodson Ra, APRN NEGATIVE RESTORER Unavailable + [phone] Denise Woodson Ra HANDS AND DIAL INSPECTOR NEGATIVE RESTORER Primary Care Provid er Usha Simon APRN NEGATIVE RESTORER Unavailable + [phone] Dangelo Salinas MD Unavailable Usha Simon APRN NEGATIVE RESTORER Unavailable + [phone] Anastasia Stearns RN Unavailable [phone] Encounter Details Date Type Department Care Team (Late st Contact Info) Description 02/12/2024 [facility] Neuro[facility] [address] [place] [address] Robin Zepeda MD [address] [place], [place] [address], [place] [address] Social History Tobacco Use Types Packs/Day Years [...] Office Visit [facility] [address] [place] [address] Denise Woodson Ra, HANDS AND DIAL INSPECTOR NEGATIVE RESTORER [address] [place], [place] 1394[address] 06/08/2024 8:30 AM CDT Office [facility] [address] [place] [address] Denise Woodson Ra, BARRERA NEGATIVE RESTORER [address] [place] [address] 06/26/2024 2:40 PM CDT Office Visit [facility] 6405 [facility] [address] [place] [phone] Danna Cardenas PA-C 6405 [place], [place] 8[address]25 documented as of this encounter Visit Diagnoses Not on filedocumented in this encounter Additional Health Concerns Assessment Noted Time PHQ-9 Depression Total Score: 16 024 3:27 PM CDT documented as of this encounter Care Teams Assistant Administrator Relationship Specialty Start Date End Date Winston Villatoro OD [facility] [place] [address] [place] [address] PCP - Ophthalmology Ophthalmology 02/11/13 Denise Woodson Ra, HANDS AND DIAL INSPECTOR NEGATIVE RESTORER [address] [place] [address] PCP - General Family Practice 09/21/20 Denise Woodson Ra, HANDS AND DIAL INSPECTOR NEGATIVE RESTORER [address] [place] [address] Assigned PCP 07/17/20 Usha Simon APRN NEGATIVE RESTORER [address] 780745 Nurse Practitioner Neurological Surgery 01/24/24 Dangelo Salinas MD [address] [place] [address] Neurology 01/27/24 Usha Simon APRN NEGATIVE RESTORER [address] [address] Assigned Neuroscience Provider 02/06/24 03/07/24 Anastasia Stearns, RN Lead Music Producer 02/06/24 documented as of this encounter
--- OUTSIDE RECORDS SUMMARY | 2024-05-17 01:28 | XMS_ITS | Encounter Summary ---
Author Organization [place] Address [address] [place] [address]. [place] [address] Care Team Providers Care Manager Inspection Name Role Phone Winston Villatoro OD Unavailable [phone] Denise Woodson Ra, APRN RES COUNSELOR Unavailable [phone] Denise Woodson Ra LOGGING SUPERINTENDENT RES COUNSELOR Primary Care Provid er Usha Simon APRN RES COUNSELOR Unavailable [phone] Dangelo Salinas MD Unavailable Usha Simon APRN RES COUNSELOR Unavailable [phone] Anastasia Stearns RN Unavailable [phone] Reason for Visit * Rehab Therapy Integrated Services (Routine) - Authorized Specialty Diagnoses / Procedures Referred By Contac t Referred To Contact Diagnoses Cerebrovascular accident (CVA), unspecified mechanism (H) [address] [address] Referral ID Status Reason Start Date Expiration Date V isits Requested Visits Authorized [id number] Authorized 09/16/2023 09/15/2024 365 365 Encounter Details Date Type Department Care Team (Late st Contact Info) Description 02/14/2024 12:45 PM CDT Therapy Visit [address] [phone] Danya You, AMAIRANI [address] [place] [address] Isabel Beaulieu, OTR [address] [address] Cerebrovascular accident (CVA), unspecified mechanism (H) (Primary [...] Office Visit [facility] [address] [place] [address] Denise Woodson Ra, APRN RES COUNSELOR [address] [facility] [place] [address] 06/08/2024 8:30 AM CDT [facility] [address] [place] [phone] Denise Woodson Ra, BARRERA RES COUNSELOR [address] [facility] [place], [place] [address] 06/26/2024 2:40 PM CDT Office [facility] Heart [place] [phone] [place] [address] Danna Cardenas PA-C 6405 [place] [address] documented as of this encounter Visit Diagnoses Diagnosis Cerebrovascular accident (CVA), unspecified mechanism (H)- Primary documented in this encounter Additional Health Concerns Assessment Noted Time PHQ-9 Depression Total Score: 16 024 3:27 PM CDT documented as of this encounter Care Teams Manager Inspection Relationship Specialty Start Date End Date Winston [facility] OD [facility] [place] [address] [place] [address] PCP - Ophthalmology Ophthalmology 02/11/13 Denise Woodson Ra, APRN RES COUNSELOR [address] [place] [address] PCP - General Family Practice 09/21/20 Denise Woodson Ra, APRN RES COUNSELOR [address] [address] [facility] [address] Assigned PCP 07/17/20 Usha Simon APRN RES COUNSELOR [address] 996765 Nurse Practitioner Neurological Surgery 01/24/24 Dangelo Salinas MD [address] [place] [address] Neurology 01/27/24 Usha Simon APRN RES COUNSELOR [address] 034815 Assigned Neuroscience Provider 02/06/24 03/07/24 Anastasia Stearns, RN Lead Icing Maker 02/06/24 documented as of this encounter
--- OUTSIDE RECORDS SUMMARY | 2024-05-17 01:28 | XMS_ITS | Encounter Summary ---
Author Organization [place] Address [address] [place] [address]. [place] [address] Care Team Providers Care Lime Puller Name Role Phone Winston Villatoro OD Unavailable [phone] Denise Woodson Ra, APRN TAPPER BALANCE WHEEL SCREW HOLE Unavailable +- [phone] Denise Woodson Ra MANAGER ENTRY TAPPER BALANCE WHEEL SCREW HOLE Primary Care Provid er Usha Simon APRN TAPPER BALANCE WHEEL SCREW HOLE Unavailable [phone] Dangelo Salinas MD Unavailable Usha Simon APRN TAPPER BALANCE WHEEL SCREW HOLE Unavailable [phone] Anastasia Stearns RN Unavailable [phone] Reason for Visit * Rehab Therapy Integrated Services (Routine) - Authorized Specialty Diagnoses / Procedures Referred By Contac t Referred To Contact Diagnoses Cerebrovascular accident (CVA), unspecified mechanism (H) [address] [address] Referral ID Status Reason Start Date Expiration Date V isits Requested Visits Authorized [id number] Authorized 09/16/2023 09/15/2024 365 365 Encounter Details Date Type Department Care Team (Latest Contact Info) Description 02/14/2024 2:00 PM CDT Therapy Visit [address] [phone] Danya You, AMAIRANI [address] [place] [address] Charis Chacon, [facility] [address] [place] [address] Cerebrovascular accident (CVA), unspecified mechanism (H) (Primary [...] AM CDT Office Visit [facility] [address] [place] [address] Denise Woodson Ra, APRN TAPPER BALANCE WHEEL SCREW HOLE [address] [place] [address] 06/08/2024 8:30 AM CDT Office Visit [facility] [address] [place] [address] Denise Woodson Ra, APRN TAPPER BALANCE WHEEL SCREW HOLE [address] [facility] [place] [address] 06/26/2024 2:40 PM CDT Office Visit [facility] Heart [place] [address] [place] [address] Danna Cardenas PA-C 6405 [facility] [place] [address] documented as of this encounter Visit Diagnoses Diagnosis Cerebrovascular accident (CVA), unspecified mechanism (H)- Primary documented in this encounter Additional Health Concerns Assessment Noted Time PHQ-9 Depression Total Score: 16 024 3:27 PM CDT documented as of this encounter Care Teams Lime Puller Relationship Specialty Start Date End Date Winston Villatoro OD [facility] [place] [address] [place] [address] PCP - Ophthalmology Ophthalmology 02/11/13 Denise Woodson Ra, APRN TAPPER BALANCE WHEEL SCREW HOLE [address] [place] [address] PCP - General Family Practice 09/21/20 Denise Woodson Ra MANAGER ENTRY TAPPER BALANCE WHEEL SCREW HOLE [address] [address] [address] Assigned PCP 07/17/20 Usha Simon APRN TAPPER BALANCE WHEEL SCREW HOLE [address] 9545[address] Nurse Practitioner Neurological Surgery 01/24/24 Dangelo Salinas MD [address] [place] [address] Neurology 01/27/24 Usha Simon APRN TAPPER BALANCE WHEEL SCREW HOLE [address] [address] Assigned Neuroscience Provider 02/06/24 03/07/24 Anastasia Stearns, RN Lead Brew House Supervisor 02/06/24 documented as of this encounter
--- OUTSIDE RECORDS SUMMARY | 2024-05-17 01:28 | XMS_ITS | Encounter Summary ---
Author Organization [place] Address [address] [place] [address] Care Team Providers Care Pack Changer Name Role Phone Winston Villatoro OD Unavailable [phone] Denise Woodson Ra, APRN MILK DRYING MACHINE OPERATOR Unavailable + [phone] Denise Woodson Ra LICSW MILK DRYING MACHINE OPERATOR Primary Care Provid er Usha Simon APRN MILK DRYING MACHINE OPERATOR Unavailable Dangelo Salinas MD Unavailable Usha Simon APRN MILK DRYING MACHINE OPERATOR Unavailable [phone] Anastasia Stearns RN Unavailable [phone] Germaine Lopez CHW Unavailable [phone] Robin Zepeda MD Unavailable [phone] Lisa Zambrano MD Unavailable Raul Hoyos MD Unavailable Encounter Details Date Type Department Care Team (Late st Contact Info) Description 01/29/2024 [facility] [address] [address] Danya Restrepo, LODGING FACILITIES ATTENDANT Social History Tobacco Use Types Packs/Day Years [...] 8:30 AM CDT Office Visit [facility] [address] [place] [address] Denise Woodson Ra, LICSW MILK DRYING MACHINE OPERATOR [address] [facility] [place], [place] [address] 06/08/2024 8:30 AM CDT Office Visit [facility] [address] [place] [address] Denise Woodson Ra, LICSW MILK DRYING MACHINE OPERATOR [address] [facility] [place] [address] 06/26/2024 2:40 PM CDT Office Visit [facility] 6405 [facility] [address] [place] [address] Danna Cardenas PA-C 6405 [place], [place] 924415 documented as of this encounter Visit Diagnoses Not on filedocumented in this encounter Additional Health Concerns Assessment Noted Time PHQ-9 Depression Total Score: 0 06/23/20 21 4:11 PM CDT documented as of this encounter Care Teams Pack Changer Relationship Specialty Start Date End Date Winston Villatoro OD [facility] [place] [address] [place] [address] PCP - Ophthalmology Ophthalmology 02/11/13 Denise Woodson Ra, LICSW MILK DRYING MACHINE OPERATOR [address] [facility] [place] [address] PCP - General Family Practice 09/21/20 Denise Woodson Ra, APRN MILK DRYING MACHINE OPERATOR [address] [place] [address] Assigned PCP 07/17/20 Usha Simon APRN MILK DRYING MACHINE OPERATOR [address] [address] Nurse Practitioner Neurological Surgery 01/24/24 Dangelo Salinas MD [address] [place] [address] Neurology 01/27/24 Usha Simon APRN MILK DRYING MACHINE OPERATOR [address] [address] Assigned Neuroscience Provider 02/06/24 03/07/24 Anastasia Stearns, RN Lead Motion Picture Equipment Supervisor 02/06/24 Germaine Lopez, W Community Health Worker Primary Care - CC 02/18/24 Robin Zepeda MD [address] [address] Assigned Neuroscience Provider 03/08/24 05/07/24 Lisa Zambrano MD [address] [place] [address] Assigned Heart and Vascular Provider 05/08/24 Raul Hoyos MD 909 [facility] [place] [address] [place] [address] Assigned Neuroscience Provider 05/08/24 documented as of this encounter
--- OUTSIDE RECORDS SUMMARY | 2024-05-17 01:28 | XMS_ITS | Encounter Summary ---
Author Organization [place] Address [address] [place] [address] Care Team Providers Care Independent Marketing Consultant Name Role Phone ShaunaWinston OD Unavailable [phone] Denise Woodson Ra, APRN CONE MACHINE OPERATOR Unavailable [phone] Denise Woodson Ra, APRN CONE MACHINE OPERATOR Primary Care Provid er Usha Simon APRN CONE MACHINE OPERATOR Unavailable [phone] Dangelo Salinas MD Unavailable Usha Simon APRN CONE MACHINE OPERATOR Unavailable [phone] Anastasia Stearns RN Unavailable [phone] Encounter Details Date Type Department Care Team [...] AM CDT Office Visit [facility] [place] [address] [facility] [place] [address] Denise Woodson Ra, COMPUTER ENGINEER CONE MACHINE OPERATOR [address] [facility] [place] [address] 06/08/2024 8:30 AM CDT Office Visit [facility] [place] [address] [place] [address] Denise Woodson Ra, COMPUTER ENGINEER CONE MACHINE OPERATOR [address] [place], [place] 55[address] 06/26/2024 2:40 PM CDT Office Visit [facility] [address] [facility] [address] [place] [address] Danna aCrdenas PA-C 6405 [place], [place] 18[address] documented as of this encounter Visit Diagnoses Not on filedocumented in this encounter Additional Health Concerns Assessment Noted Time PHQ-9 Depression Total Score: 16 024 3:27 PM CDT documented as of this encounter Care Teams Independent Marketing Consultant Relationship Specialty Start Date End Date Winston Villatoro OD [facility] [place] [address] [place] [address] PCP - Ophthalmology Ophthalmology 02/11/13 Denise Woodson Ra, COMPUTER ENGINEER CONE MACHINE OPERATOR [address] [place] [address] PCP - General Family Practice 09/21/20 Denise Woodson Ra, APRN CONE MACHINE OPERATOR [address] [place] [address] Assigned PCP 07/17/20 Usha Simon APRN CONE MACHINE OPERATOR [address] [place] [address] [address] Nurse Practitioner Neurological Surgery 01/24/24 Dangelo Salinas MD [address] [place] [address] Neurology 01/27/24 Usha Simon APRN CONE MACHINE OPERATOR 909 [facility]121CJ [place], [place] 632085 Assigned Neuroscience Provider 02/06/24 03/07/24 Anastasia Stearns, RN Lead Extractor Operator Helper 02/06/24 documented as of this encounter
--- OUTSIDE RECORDS SUMMARY | 2024-05-17 01:28 | XMS_ITS | Encounter Summary ---
Author Organization [place] Address [address] [place] [address] Care Team Providers Care Family Service Center Director Name Role Phone Yung Madrigal MD Unavailable Unavailable Winston Villatoro OD Unavailable [phone] Denise Woodson Ra, APRN RECEIVING WEIGHER Unavailable + [phone] Denise Woodson Ra DIGESTER OPERATOR HELPER RECEIVING WEIGHER Primary Care Provid er Usha Simon APRN RECEIVING WEIGHER Unavailable + [phone] Dangelo Salinas MD Unavailable Usha Simon APRN RECEIVING WEIGHER Unavailable +[phone] Anastasia Stearns RN Unavailable [phone] Germaine Lopez CHW Unavailable [phone] Robin Zepeda MD Unavailable [phone] Lisa Zambrano MD Unavailable + [phone] Raul Hoyos MD Unavailable Encounter Details Date Type Department Care Team (Late st Contact Info) Description 01/10/2023 [facility] [address] [address] Arianna Lo Social History Tobacco [...] Office Visit [facility] [place] [address] [place] [address] Denise Woodson Ra, DIGESTER OPERATOR HELPER RECEIVING WEIGHER [address] [place], [place] [address]25[address] 06/08/2024 8:30 AM CDT Office Visit [facility] [address] [place] [phone] Denise Woodson Ra, DIGESTER OPERATOR HELPER RECEIVING WEIGHER [address] [facility] [place], [place] 095[address] 06/26/2024 2:40 PM CDT Office [facility] Heart [facility] 6405 [facility] [address] [place] [address] Danna Cardenas PA-C 6405 [place], [place] 214585 documented as of this encounter Visit Diagnoses Not on filedocumented in this encounter Additional Health Concerns Assessment Noted Time PHQ-9 Depression Total Score: 0 06/23/20 21 4:11 PM CDT documented as of this encounter Care Teams Family Service Center Director Relationship Specialty Start Date End Date Yung Madrigal MD RETIRED PCP - Orthopaedics Orthopedics 08/26/12 01/20/24 Winston Villatoro OD [facility] [place] [address] [place] [address] PCP - Ophthalmology Ophthalmology 02/11/13 Denise Woodson Ra, APRN RECEIVING WEIGHER [address] [place] [address] PCP - General Family Practice 09/21/20 Denise Woodson Ra, APRN RECEIVING WEIGHER [address] [place] [address] Assigned PCP 07/17/20 Usha Simon APRN RECEIVING WEIGHER [address] [address] Nurse Practitioner Neurological Surgery 01/24/24 Dangelo Salinas MD [address] [place], [place] [address] Neurology 01/27/24 Usha Simon APRN RECEIVING WEIGHER [address] [id number] Assigned Neuroscience Provider 02/06/24 03/07/24 Anastasia Stearns, RN Lead Central Sterile Supply Technician 02/06/24 Germaine Lopez, W Community Health Worker Primary Care - CC 02/18/24 Robin Zepeda MD [address] [id number] Assigned Neuroscience Provider 03/08/24 05/07/24 Lisa Zambrano MD [address] [place] [address] Assigned Heart and Vascular Provider 05/08/24 Raul Hoyos MD 909 [facility]2121[place], [place] [address] Assigned Neuroscience Provider 05/08/24 documented as of this encounter
--- OUTSIDE RECORDS SUMMARY | 2024-05-17 01:28 | XMS_ITS | Encounter Summary ---
Author Organization [place] Address [address] [place] [address]. [place] [address] Care Team Providers Care Business Process Architect Name Role Phone Winston Villatoro OD Unavailable [phone] Denise Woodson Ra, APRN TOOL LATHE OPERATOR Unavailable +- [phone] Denise Woodson Ra MANAGER FAST FOOD TOOL LATHE OPERATOR Primary Care Provid er Usha Simon APRN TOOL LATHE OPERATOR Unavailable [phone] Dangelo Salinas MD Unavailable Usha Simon APRN TOOL LATHE OPERATOR Unavailable [phone] Anastasia Stearns RN Unavailable [phone] Reason for Visit * Rehab Therapy Integrated Services (Routine) - Authorized Specialty Diagnoses / Procedures Referred By Contac t Referred To Contact Diagnoses Cerebrovascular accident (CVA), unspecified mechanism (H) [address] [address] Referral ID Status Reason Start Date Expiration Date V isits Requested Visits Authorized [id number] Authorized 09/16/2023 09/15/2024 365 365 Encounter Details Date Type Department Care Team (Latest Contact Info) Description 02/07/2024 2:00 PM CDT Therapy Visit [address] [phone] Danya You, AMAIRANI [address] [place] [address] Charis Chacon, J[facility] 3[facility] [address] [place] [address] Cerebrovascular accident (CVA), unspecified mechanism (H) (Primary [...] Description 05/26/2024 8:30 AM CDT Office Visit [facility] [address] [place] [address] Denise Woodson Ra, APRN TOOL LATHE OPERATOR [address] [place] [address] 06/08/2024 8:30 AM CDT Office Visit [facility] [address] [place] [address] Denise Woodson Ra, APRN TOOL LATHE OPERATOR [address] [facility] [place] [place] [address] 06/26/2024 2:40 PM CDT Office Visit [facility] Heart [place] [address] [place] [address] Danna Cardenas PA-C 6405 [facility] [place] [address] documented as of this encounter Visit Diagnoses Diagnosis Cerebrovascular accident (CVA), unspecified mechanism (H)- Primary documented in this encounter Additional Health Concerns Assessment Noted Time PHQ-9 Depression Total Score: 14 024 9:33 AM CDT documented as of this encounter Care Teams Business Process Architect Relationship Specialty Start Date End Date Winston Villatoro OD [facility] [place] [address] [place] [address] PCP - Ophthalmology Ophthalmology 02/11/13 Denise Woodson Ra, APRN TOOL LATHE OPERATOR [address] [place] [address] PCP - General Family Practice 09/21/20 Denise Woodson Ra MANAGER FAST FOOD TOOL LATHE OPERATOR [address] [place] [address] Assigned PCP 07/17/20 Usha Simon APRN TOOL LATHE OPERATOR [address] [address]486[address] Nurse Practitioner Neurological Surgery 01/24/24 Dangelo Salinas MD [address] [place] [address] Neurology 01/27/24 Usha Simon APRN TOOL LATHE OPERATOR [address] [address] Assigned Neuroscience Provider 02/06/24 03/07/24 Anastasia Stearns, RN Lead Automatic Blocker 02/06/24 documented as of this encounter
--- OUTSIDE RECORDS SUMMARY | 2024-05-17 01:28 | XMS_ITS | Encounter Summary ---
Author Organization [place] Address [address] [place] [address]. [place] [address] Care Team Providers Care Tile Mechanic Name Role Phone Winston Villatoro OD Unavailable [phone] Denise Woodson Ra, APRN ACCOUNTANT MANAGER Unavailable + [phone] Denise Woodson Ra TRAUMA MANAGER ACCOUNTANT MANAGER Primary Care Provid er Usha Simon APRN ACCOUNTANT MANAGER Unavailable + [phone] Dangelo Salinas MD Unavailable Usha Simon APRN ACCOUNTANT MANAGER Unavailable + [phone] Anastasia Stearns RN Unavailable [phone] Reason for Visit * Reason Onset Date Comments Medication Request 02/14/2024 Forms 02/14/2024 Encounter Details Date Type Department Care Team (Late st Contact Info) Description 02/14/2024 [facility] [place] [facility] [address] [place] [address] Denise Woodson Ra, APRN ACCOUNTANT MANAGER [address] [place] [address] Medication Request; Forms Social History [...] - 02/14/2024 10:53 AM CDT Denise- see [employer] message below. Are you taking over requested medications? Also I do not see forms encounter and note to pick-up form? Please advise. Filomena Gomez RN documented in this encounter Plan of Treatment Upcoming Encounters Date Type Department Care Team (Late st Contact Info) Description 05/26/2024 8:30 AM CDT Office Visit [facility] [address] [place] [address] Denise Woodson Ra, APRN CNP [address] [place] [place] [id number] 06/08/2024 8:30 AM CDT Office Visit [facility] [address] [place] [address] Denise Woodson Ra, APRN CNP [address] [place] [address] 06/26/2024 2:40 PM CDT Office Visit [facility] 6405 [facility] [address] [place] [address] Danna Cardenas PA-C 6405 [facility] [place] [address]39105 documented as of this encounter Visit Diagnoses Diagnosis Cerebrovascular accident (CVA), unspecified mechanism (H) History of seizure documented in this encounter Additional Health Concerns Assessment Noted Time PHQ-9 Depression Total Score: 16 024 3:27 PM CDT documented as of this encounter Care Teams Tile Mechanic Relationship Specialty Start Date End Date Winston Villatoro OD [facility] [place] [address] [place] [address] PCP - Ophthalmology Ophthalmology 02/11/13 Denise Woodson Ra, APRN ACCOUNTANT MANAGER [address] [place] [address] PCP - General Family Practice 09/21/20 Denise Woodson Ra, APRN ACCOUNTANT MANAGER [address] [place] [address] Assigned PCP 07/17/20 Usha Simon APRN ACCOUNTANT MANAGER 909 [facility] [id number] [place], [place] 626[address] Nurse Practitioner Neurological Surgery 01/24/24 Dangelo Salinas MD [address] [place] [address] Neurology 01/27/24 Usha Simon APRN ACCOUNTANT MANAGER 909 [facility] [id number] [place] [address] Assigned Neuroscience Provider 02/06/24 03/07/24 Anastasia Stearns, RN Lead Paint Grinder [place] 02/06/24 documented as of this encounter
--- OUTSIDE RECORDS SUMMARY | 2024-05-17 01:28 | XMS_ITS | Encounter Summary ---
Author Organization [place] Address [address] [place] [address] Care Team Providers Care Residential Designer Name Role Phone Yung Madrigal MD Unavailable Unavailable Winston Villatoro OD Unavailable [phone] Denise Woodson Ra, APRN PATHOLOGY SPECIALIST Unavailable [phone] Denise Woodson Ra DOG TRACK KENNEL MANAGER PATHOLOGY SPECIALIST Primary Care Provid er Usha Simon APRN PATHOLOGY SPECIALIST Unavailable [phone] Dangelo Salinas MD Unavailable Usha Simon APRN PATHOLOGY SPECIALIST Unavailable +- [phone] Anastasia Stearns RN Unavailable Germaine Lopez CHW Unavailable [phone] Robin Zepeda MD Unavailable [phone] Lisa Zambrano MD Unavailable +- [phone] Raul Hoyos MD Unavailable [phone] Reason for Visit * Reason Comments Medication Refill Encounter Details Date Type Department Care Team (Late st Contact Info) Description 02/19/2022 [facility] [place] [facility] [address] [place] [address] Denise Woodson Ra, APRN PATHOLOGY SPECIALIST [address] [place] [address] Medication Refill Social History Tobacco [...] CDT Office Visit [facility] [address] [place] [phone] Denise Woodson Ra, DOG TRACK KENNEL MANAGER PATHOLOGY SPECIALIST [address] [facility] [place] [address] 06/08/2024 8:30 AM CDT [facility] [address] [place] [phone] Denise Woodson Ra, DOG TRACK KENNEL MANAGER PATHOLOGY SPECIALIST [address] [place] [address] 06/26/2024 2:40 PM CDT Office Visit [facility] Heart [facility] 6405 [facility] [address] [place] [address] Danna Cardenas PA-C 6405 [facility] [place] [address] documented as of this encounter Visit Diagnoses Diagnosis Moderate persistent asthma without complication Unspecified asthma documented in this encounter Additional Health Concerns Assessment Noted Time PHQ-9 Depression Total Score: 0 06/23/20 21 4:11 PM CDT documented as of this encounter Care Teams Residential Designer Relationship Specialty Start Date End Date Yung Madrigal MD RETIRED PCP - Orthopaedics Orthopedics 08/26/12 01/20/24 Winston Villatoro, [facility] [place] [address] [place] [address] PCP - Ophthalmology Ophthalmology 02/11/13 Denise Woodson Ra, APRN PATHOLOGY SPECIALIST [address] [place] [address] PCP - General Family Practice 09/21/20 Denise Woodson Ra, APRN PATHOLOGY SPECIALIST [address] [place] [address] Assigned PCP 07/17/20 Usha Simon APRN PATHOLOGY SPECIALIST [address] [place] [address] Nurse Practitioner Neurological Surgery 01/24/24 Dangelo Salinas MD [address] [address] Neurology 01/27/24 Usha Simon APRN PATHOLOGY SPECIALIST [address] [address] Assigned Neuroscience Provider 02/06/24 03/07/24 Anastasia Stearns, RN Lead Fruit And Vegetable Parer 02/06/24 Germaine Lopez, W Community Health Worker Primary Care - CC 02/18/24 Robin Zepeda MD [address] 952[address] Assigned Neuroscience Provider 03/08/24 05/07/24 Lisa Zambrano MD [address] [place] [address] Assigned Heart and Vascular Provider 05/08/24 Raul Hoyos MD [address] [place] [address] 733265 Assigned Neuroscience Provider 05/08/24 documented as of this encounter
--- OUTSIDE RECORDS SUMMARY | 2024-05-17 01:28 | XMS_ITS | Encounter Summary ---
Author Organization [place] Address [address] [place] [address] Care Team Providers Care Thread Cutter Tender Name Role Phone ShaunaWinston OD Unavailable [phone] Denise Woodson Ra, APRN FOUNTAIN MANAGER Unavailable [phone] Denise Woodson Ra, APRN FOUNTAIN MANAGER Primary Care Provid er Usha Simon APRN FOUNTAIN MANAGER Unavailable [phone] Dangelo Salinas MD Unavailable Usha Simon APRN FOUNTAIN MANAGER Unavailable [phone] Anastasia Stearns RN Unavailable [phone] Encounter Details Date Type Department Care Team [...] AM CDT Office Visit [facility] [place] [address] [facility] [place] [address] Denise Woodson Ra, MUNITIONS FACTORY WORKER FOUNTAIN MANAGER [address] [facility] [address] 06/08/2024 8:30 AM CDT Office Visit [facility] [place] [address] [facility] [place] [address] Denise Woodson Ra, MUNITIONS FACTORY WORKER FOUNTAIN MANAGER [address] [place], [place] 8142268 06/26/2024 2:40 PM CDT Office Visit [facility] 6405 [facility] [address] [place] [address] Danna Cardenas PA-C 6405 [place], [place] 134345 documented as of this encounter Visit Diagnoses Not on filedocumented in this encounter Additional Health Concerns Assessment Noted Time PHQ-9 Depression Total Score: 16 024 3:27 PM CDT documented as of this encounter Care Teams Thread Cutter Tender Relationship Specialty Start Date End Date Winston Villatoro OD [facility] [place] [address] [place] [address] PCP - Ophthalmology Ophthalmology 02/11/13 Denise Woodson Ra, MUNITIONS FACTORY WORKER FOUNTAIN MANAGER [address] [place] [address] PCP - General Family Practice 09/21/20 Denise Woodson Ra, APRN FOUNTAIN MANAGER [address] [place] [address] Assigned PCP 07/17/20 Usha Simon APRN FOUNTAIN MANAGER [address] [place] [id number] [place] [address] Nurse Practitioner Neurological Surgery 01/24/24 Dangelo Salinas MD [address] [place] [address] Neurology 01/27/24 Usha Simon APRN FOUNTAIN MANAGER 909 [id number] [place]BS[place], [place] 135075 Assigned Neuroscience Provider 02/06/24 03/07/24 Anastasia Stearns, RN Lead Dental Manager 02/06/24 documented as of this encounter
--- OUTSIDE RECORDS SUMMARY | 2024-05-17 01:28 | XMS_ITS | Encounter Summary ---
Author Organization [place] Address [address] [place] [address]. [place] [address] Care Team Providers Care Pottery Striper Name Role Phone Winston Villatoro OD Unavailable [phone] Denise Woodson Ra, APRN BODY SHOP SUPERVISOR Unavailable [phone]- [phone] Denise Woodson Ra BATTERY SERVICE TECHNICIAN BODY SHOP SUPERVISOR Primary Care Provid er Usha Simon APRN BODY SHOP SUPERVISOR Unavailable [phone] Dangelo Salinas MD Unavailable Usha Simon APRN BODY SHOP SUPERVISOR Unavailable [phone] Anastasia Stearns RN Unavailable [phone] Reason for Visit * Rehab Therapy Integrated Services (Routine) - Authorized Specialty Diagnoses / Procedures Referred By Contac t Referred To Contact Diagnoses Cerebrovascular accident (CVA), unspecified mechanism (H) [address] [address] Referral ID Status Reason Start Date Expiration Date V isits Requested Visits Authorized [id number] Authorized 09/16/2023 09/15/2024 365 365 Encounter Details Date Type Department Care Team (Latest Contact Info) Description 02/14/2024 2:45 PM CDT Therapy Visit [address] [phone] Danya You, AMAIRANI [address] [place] [address] Patrick Maria Eugenia J, PT [address] [place] [address] Cerebrovascular accident (CVA), unspecified mechanism (H) (Primary [...] CDT Office Visit [facility] [address] [place] [phone] Denise Woodson Ra, BATTERY SERVICE TECHNICIAN BODY SHOP SUPERVISOR [address] [place] [address] 06/08/2024 8:30 AM CDT [facility] [address] [place] [address] Denise Woodson Ra, BARRERA BODY SHOP SUPERVISOR [address] [place], [place] [id number] 06/26/2024 2:40 PM CDT Office Visit [facility] Heart [address] [place] [phone] Danna Cardenas PA-C [address] [place] [address] documented as of this encounter Visit Diagnoses Diagnosis Cerebrovascular accident (CVA), unspecified mechanism (H)- Primary documented in this encounter Additional Health Concerns Assessment Noted Time PHQ-9 Depression Total Score: 16 024 3:27 PM CDT documented as of this encounter Care Teams Pottery Striper Relationship Specialty Start Date End Date Winston Villatoro OD [facility] [place] [address] [place] [address] PCP - Ophthalmology Ophthalmology 02/11/13 Denise Woodson Ra, BATTERY SERVICE TECHNICIAN BODY SHOP SUPERVISOR [address] [place] [address] PCP - General Family Practice 09/21/20 Denise Woodson Ra, BATTERY SERVICE TECHNICIAN BODY SHOP SUPERVISOR [address] [facility] [place] [address] Assigned PCP 07/17/20 Usha Simon APRN BODY SHOP SUPERVISOR [address] [address] Nurse Practitioner Neurological Surgery 01/24/24 Dangelo Salinas MD [address] [place] [address] Neurology 01/27/24 Usha Simon APRN BODY SHOP SUPERVISOR [address] [address] Assigned Neuroscience Provider 02/06/24 03/07/24 Anastasia Stearns, RN Lead Glass Bulb Silverer 02/06/24 documented as of this encounter
--- OUTSIDE RECORDS SUMMARY | 2024-05-17 01:28 | XMS_ITS | Encounter Summary ---
Author Organization [place] Address [address] [place] [address] Care Team Providers Care Systems Administration Analyst Name Role Phone Winston Villatoro OD Unavailable [phone] Denise Woodson Ra, APRN SECOND BUTLER Unavailable + [phone] Denise Woodson Ra [employer] SECOND BUTLER Primary Care Provid er Usha Simon APRN SECOND BUTLER Unavailable Dangelo Salinas MD Unavailable Usha Simon APRN SECOND BUTLER Unavailable Anastasia Stearns RN Unavailable [phone] Germaine Lopez CHW Unavailable [phone] Robin Zepeda MD Unavailable [phone] Lisa Zambrano MD Unavailable + [phone] Raul Hoyos MD Unavailable Reason for Visit * Reason Onset Date Comments Appointment 01/23/2024 Referral-Stroke hospital follow up Encounter Details Date Type Department Care Team (Late st Contact Info) Description 01/23/2024 [facility] [address] [place] [address] None Appointment (Referral-Stroke hospital follow [...] Nani Bassett - 01/23/2024 1:33 PM CDT [facility] Call Center Phone Message May a detailed message be left on voicemail: yes Reason for Call: Appointment Intake Referring Provider Name: Dr. Delisa Manuel Ur 5 Med Surg Diagnosis and/or Symptoms: Stroke Please review referral for Stroke as no HFU orders are entered for Stroke follow up. Patient discharged on 01/22/24 from [facility] and is now in Acute Rehab Unit. Action Taken: Message routed to: [facility] Neurology Travel Screening: Not Applicable documented in this encounter Plan of Treatment Upcoming Encounters Date Type Department Care Team (Late st Contact Info) Description 05/26/2024 8:30 AM CDT Office Visit [facility] [address] [place] [phone] Denise Woodson Ra, BARRERA SECOND BUTLER [address] [place] [address] 06/08/2024 8:30 AM CDT [facility] [address] [place] [phone] Denise Woodson Ra, APRN SECOND BUTLER [address] [place], [place] [phone] 06/26/2024 2:40 PM CDT Office Visit [facility] Heart [address] [place] [phone] Danna Cardenas PA-C [address] [place] [address] documented as of this encounter Visit Diagnoses Not on filedocumented in this encounter Additional Health Concerns Assessment Noted Time PHQ-9 Depression Total Score: 0 06/23/20 21 4:11 PM CDT documented as of this encounter Care Teams Systems Administration Analyst Relationship Specialty Start Date End Date Winstno Villatoro OD [facility] [place] [address] [place] [address] PCP - Ophthalmology Ophthalmology 02/11/13 Denise Woodson Ra, APRN SECOND BUTLER [address] [facility] [place] [address] PCP - General Family Practice 09/21/20 Denise Woodson Ra, APRN SECOND BUTLER [address] [facility] [place] [address] Assigned PCP 07/17/20 Usha Simon APRN SECOND BUTLER [address] [place] [id number] Nurse Practitioner Neurological Surgery 01/24/24 Dangelo Salinas MD [address] [facility] [address] [place] [address] Neurology 01/27/24 Usha Simon APRN SECOND BUTLER [address] [address] Assigned Neuroscience Provider 02/06/24 03/07/24 Anastasia Stearns RN Lead Housekeeping Laundry Worker 02/06/24 Germaine Lopez, [facility] Community Health Worker Primary Care - CC 02/18/24 Robin Zepeda MD [address] [address] Assigned Neuroscience Provider 03/08/24 05/07/24 Lisa Zambrano MD [address] [place] [address] Assigned Heart and Vascular Provider 05/08/24 Raul Hoyos MD [address] [address] Assigned Neuroscience Provider 05/08/24 documented as of this encounter
--- OUTSIDE RECORDS SUMMARY | 2024-05-17 01:28 | XMS_ITS | Encounter Summary ---
Author Organization [place] Address [address] [place] [address]. [place] [address] Care Team Providers Care Adjunct Nursing Faculty Name Role Phone Winston Villatoro OD Unavailable [phone] Denise Woodson Ra, APRN DANDY TENDER Unavailable [phone]- [phone] Denise Woodson Ra, APRN DANDY TENDER Primary Care Provid er Usha Simon APRN DANDY TENDER Unavailable [phone]- [phone] Dangelo Salinas MD Unavailable Usha Simon APRN DANDY TENDER Unavailable [phone]- [phone] Anastasia Stearns RN Unavailable [phone] Reason for Visit * Reason Comments Video Visit Dural AVF Encounter Details Date Type Department Care Team (Latest Contact Info) Description 02/12/2024 3:40 PM CDT Virtual Visit [facility] [address] [place] [address] Robin Zepeda MD [address] [place] [address] [id number] [address] Dural arteriovenous fistula (Primary Dx) [...] person or virtual. Call Wendy RIBEIRO Neurosurgery Costume Specialist with questions/concerns [phone] Thank you for using [employer] documented in this encounter Progress Notes * Robin Zepeda MD - 02/12/2024 3:40 PM CDT Virtual Visit Details Type of service: Phone Visit I the pleasure to talk to Joes today by telephone. She gave consent for this visit. Briefly Jose is a 48-year-old woman who lives in [place]. 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 Sheis lived in [place] for the last 4 years. Her had grown up there and graduated from [employer] from high school. She was in her normal state of health until about 3 months ago. At that time she felt that she could hear her heartbeat through her ear while sleeping. 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 This then prompted a cerebral angiogram at [facility]. This was done by Dr. Gutierrez. The [...] the patient currently in the state of [place]? YES Visit mode:VIDEO If the visit is dropped, the patient can be reconnected by: TELEPHONE VISIT: Phone number: Telephone Information: Will anyone else be joining the visit? NO (If patient encounters technical issues they should call [phone]) How would you like to obtain [...] AM CDT [facility] [address] [place] [phone] Denise Woodson Ra, IMPREGNATOR AND DRIER HELPER DANDY TENDER [address] [facility], [place] [id number] 06/08/2024 8:30 AM CDT [facility] [address] [place] [phone] Denise Woodson Ra, IMPREGNATOR AND DRIER HELPER DANDY TENDER [address] [facility] [place] [address] 06/26/2024 2:40 PM CDT Office Visit [facility] [address] [facility] [address] [place] [phone] Danna Cardenas PA-C [address] [place], [place] [address] documented as of this encounter Visit Diagnoses Diagnosis Dural arteriovenous fistula- Primary Cerebral aneurysm, nonruptured documented in this encounter Additional Health Concerns Assessment Noted Time PHQ-9 Depression Total Score: 16 024 3:27 PM CDT documented as of this encounter Care Teams Adjunct Nursing Faculty Relationship Specialty Start Date End Date Winston Villatoro OD [facility] [place] [address] [place] [address] PCP - Ophthalmology Ophthalmology 02/11/13 Denise Woodson Ra, APRN DANDY TENDER [address] [place] [address] PCP - General Family Practice 09/21/20 Denise Woodson Ra, APRN DANDY TENDER [address] [address] [place] [address] Assigned PCP 07/17/20 Usha Simon APRN DANDY TENDER [address] 4405[address] Nurse Practitioner Neurological Surgery 01/24/24 Dangelo Salinas MD [address] [place], [place] [id number] Neurology 01/27/24 Usha Simon APRN DANDY TENDER [address] 528835 Assigned Neuroscience Provider 02/06/24 03/07/24 Anastasia Stearns, RN Lead Costume Specialist 02/06/24 documented as of this encounter
--- OUTSIDE RECORDS SUMMARY | 2024-05-17 01:28 | XMS_ITS | Encounter Summary ---
Author Organization [place] Address [address] [place] [address] Care Team Providers Care Ironworker Apprentice Shop Name Role Phone Winston Villatoro OD Unavailable [phone] Denise Woodson Ra, APRN ECONOMIC DEVELOPMENT SPECIALIST Unavailable +- [phone] Denise Woodson Ra SECURITIES BROKER ECONOMIC DEVELOPMENT SPECIALIST Primary Care Provid er Usha Simon APRN ECONOMIC DEVELOPMENT SPECIALIST Unavailable +- [phone] Dangelo Salinas MD Unavailable Usha Simon APRN ECONOMIC DEVELOPMENT SPECIALIST Unavailable +- [phone] Anastasia Stearns RN Unavailable Reason for Visit * Reason Comments Dizziness Encounter Details Date Type Department Care Team (Late st Contact Info) Description 02/13/2024 12:11 PM CDT - 02/13/2024 3:28 PM CDT Emergency [facility] Emergency Dept [address] [place] [address] Dangelo Sylvester DO [facility] [address] [facility] [place] [id number] Dizziness Discharge Disposition: Home or Self Care [...] be sent through Care Everywhere. * Dizziness (Maldivian) documented in this encounter Medications at Time [...] 2 times daily 60 tablet 01/24/2024 02/14/2024 magnesium oxide 200 MG TABS Ok to take magnesium supplement of your preference 01/24/2024 05/14/2024 rosuvastatin (CRESTOR) 20 MG tabletIndications:Cer ebrovascular accident (CVA), unspecified mechanism (H) Take 1 tablet (20 mg) by mouth at bedtime 30 tablet 01/24/2024 02/14/2024 documented as of this encounter Consult Notes * Kaur Mason APRN ECONOMIC DEVELOPMENT SPECIALIST - 02/13/2024 12:16 PM CDT Images from the original note were not included. [facility] Stroke Code Note History of [...] deficits. [facility]. Past Medical History Preadmission antithrombotic regimen: ASA 325mg She has extensive recent neurological history, summarized from stroke code note 02/04/24: On 01/04/24, the patient presented to [place] ED for evaluation of persistent headache and left-sided, pulsatile tinnitus. 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 DSA on 01/08 [...] to outpatient PT/OT. She presented again to [facility] ER on 01/13 for continued frustration about [...] BPPV per primary team Kaur Mason APRN ECONOMIC DEVELOPMENT SPECIALIST Vascular Neurology To page me or covering stroke neurology java development team lead, click here: AMCOM Choose Manager Media tab at top, then select NEUROLOGY/ALL SITES [...] Reflexes: unable to test (telestroke) Coordination: normal vpuzzs-kg-kkzz and slzi-zm-ubkh bilaterally without dysmetria Station/Gait: transfers between gurneys with no significant difficutly Labs CBC Lab [...] communication per Philomena Originating site (patient location) [facility] Distant site (provider location) [facility] Clinically Significant Risk Factors Present [...] history, physical and plan for Alcon A [place]. I did not participate in a shared visit by interviewing or examining the patient and this should be billed as an advanced practice provider only visit Sonia Kan MD Vascular Neurology To page me or covering stroke neurology java development team lead, click here: AMCOM Choose Manager Media tab at top, then search dropdown box [...] that when she woke up this morning [id number] when she felt extremely off balance and [...] History of Present Illness Chief Complaint: Dizziness HPI Alcon Zamora is a 48 year [...] presented for a planned catheter angiogram at [facility] for left sided pulsatile tinnitus, following procedure found to have 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 Discharged in setting of acute mental status change, concern for seizure, workup felt not consistent with seizure, episodes felt related to fatigue/stress. Functionally making progress with ongoing strength, balance, activity tolerance, and cognition below baseline, plan fo rhome with outpatient PT/OT/DECONTAMINATOR. Past Medical History Medical History, Surgical History, [...] hearing B/L, midline tongue protrusion with nl fvdj-ar-ykye movement, normal shoulder shrug). RUE strength 5/5: phytopathology teacher, finger abd, wrist flex/ext, elbow flex/ext. LUE strength 5/5: phytopathology teacher, finger abd, wrist flex/ext, elbow flex/ext. RLE strength 5/5: ankle flex/ext, knee flex/ext, hip flex. LLE strength 5/5: ankle flex/ext, knee flex/ext, hip flex. Sensation equal in all 4 extremities. No arm drift. Cerebellar: The patient is able to perform ecpdvp-ibxh-hgvdxt, rapid pronation/supination, and hand rolling without issue. [...] a DVA. FRAN ROBBINS MD SYSTEM ID: [id number] CTA Head Neck with Contrast Final Result IMPRESSION: 1. Head CTA demonstrates no aneurysm or stenosis of the major intracranial arteries. 2. Neck CTA demonstrates no stenosis of the major cervical arteries. Findings were discussed with Dr. Sylvester at 12:42 hours CDT. FRAN ROBBINS MD SYSTEM ID: [id number] CT Head w/o Contrast Final Result IMPRESSION: No acute intracranial pathology. FRAN ROBBINS MD SYSTEM ID: [id number] EKG ECG taken at 1251, ECG read at 1251 Sinus rhythm with occasional PVCs Possible left atrial enlargement Borderline ECG No significant change as compared to prior, dated 02/04/2024. Rate 81 bpm. SD interval 166 ms. QRS duration 84 ms. [...] February 13, 2024 1218 D/W Kaur Mason DIE STAMPER with stroke neurology. 1241 D/W Dr. Robbins ([facility]): No evidence of acute infarct, hemorrhage, [...] to home Medical Decision Making / Diagnosis [facility] Diagnoses: None Code Status: Prior [facility] Medical Decision Making: This 48-year-old [...] Care: None. Disposition: See ED Course and [facility] ICD-10 Codes: ICD-10-CM 1. Dizziness R42 [...] AM CDT Office Visit [facility] [place] [address] [place] [address] Denise Woodson Ra, SECURITIES BROKER ECONOMIC DEVELOPMENT SPECIALIST [address] [facility], [place] [address] 06/08/2024 8:30 AM CDT Office Visit [facility] [place] [address] [place] [address] Denise Woodson Ra, SECURITIES BROKER ECONOMIC DEVELOPMENT SPECIALIST [address] [facility], [place] [address] 06/26/2024 2:40 PM CDT Office Visit [facility] Heart [facility] [address] [facility] [address] [place] [address] Danna Cardenas PA-C [address] [place] [address] documented as of this encounter Procedures Procedure [...] Atrial Rate 64 BPM RADIOLOG Y RESULTS SD Interval 160 ms RADIOLOG Y RESULTS QRS Duration 92 ms RADIOLO GY RESULTS QT 402 ms RADIOLOGY RESULTS QTc 414 ms RADIOLOGY RESULTS P [place] 53 degrees RADIOLOGY RESULTS R AXIS 69 degrees RADIOLOGY RESULTS T [place] 28 degrees RADIOLOGY RESULTS Interpretation ECG Sinus [...] a DVA. FRAN ROBBINS MD SYSTEM ID: ??[id number] Narrative 02/13/2024 3:14 PM CDT MR BRAIN [...] a DVA. FRAN ROBBINS MD SYSTEM ID: [id number] Dangelo Tavares Sylvester DO IMG MRI ORDERABL ES * EKG 12-lead, tracing only (02/13/2024 12:51 PM CDT) Systolic Blood Pressure mmHg RADIOLOGY RESULTS Diastolic Blood Pressure mmHg RADIOLOGY RESULTS Ventricular Rate 81 BPM RAD IOLOGY RESULTS Atrial Rate 81 BPM RADIOLOG Y RESULTS SD Interval 166 ms RADIOLOG Y RESULTS QRS Duration 84 ms RADIOLO GY RESULTS QT 358 ms RADIOLOGY RESULTS QTc 415 ms RADIOLOGY RESULTS P [place] 52 degrees RADIOLOGY RESULTS R AXIS 54 degrees RADIOLOGY RESULTS T [place] 15 degrees RADIOLOGY RESULTS Interpretation ECG Sinus rhythm with occasional Premature ventricular complexes Possible Left atrial enlargement Borderline ECG When compared with ECG of 04-FEB-2024 14:46, QT has shortened Unconfirmed report - interpretation of this ECG is computer generated - see medical record for final interpretation Confirmed by - EMERGENCY ROOM, PHYSICIAN ([id number]), purchase request editor Jc Rouse ([id number]) on 02/13/2024 1:07:34 PM RADIOLOGY RESULTS 02/13/2024 [...] hours CDT. FRAN ROBBINS MD SYSTEM ID: ??[id number] Narrative 02/13/2024 12:49 PM CDT EXAM: CTA [...] of the upper aortic arch through the [place]. This CT angiogram data was [...] of the upper aortic arch through the [place]. This CT angiogram data was [...] hours CDT. FRAN ROBBINS MD SYSTEM ID: [id number] Dangelo Sylvester DO IMG CT ORDERABLE S * CT Head w/o Contrast (02/13/2024 12:28 PM CDT) Anatomical Region Laterality Modality Head, SUBRAD CT NEURO, SUBRA D CT NEURO, UMP CT NEURO, RAD CT Computed Tomography Impressions 02/13/2024 12:49 PM CDT IMPRESSION: No acute intracranial pathology. FRAN ROBBINS MD SYSTEM ID: ??[id number] Narrative 02/13/2024 12:49 PM CDT EXAM: CT HEAD W/O CONTRAST ??02/13/2024 12:28 PM HISTORY: ??Code Stroke to evaluate for potential thrombolysis and thrombectomy. PLEASE READ IMMEDIATELY. ?? COMPARISON: ??Brain MRI, Head CT and CTA 02/04/2024 TECHNIQUE: Using multidetector thin collimation helical acquisition technique, axial, coronal and sagittal CT images from the skull base to the vertex were obtained without intravenous contrast. Horticultural Specialty Grower (topogram) image(s) also obtained and reviewed. Dose [...] the vertex were obtained without intravenous contrast. Horticultural Specialty Grower (topogram) image(s) also obtained and reviewed. Dose [...] intracranial pathology. FRAN ROBBINS MD SYSTEM ID: [id number] Dangelo Sylvester IMG CT ORDERABLE S * Glucose by meter (02/13/2024 12:18 PM CDT) GLUCOSE BY METER POCT 95 70 - 99 mg/dL 02/13/2024 12:25 PM CDT [facility] POC Blood, venous BLOOD SPECIMEN / Unknown 02/13/2024 12:18 PM CDT 02/13/2024 12:25 PM CDT Dangelo Tavares Nga [facility] - BEAKER POC T [facility]AT[facility] POC [facility] [address] Lab (1st floor, no room number) [place] [address] * CBC with platelets and differential [...] LAB - BLOOD LUNAE SUDEEP [facility] [address] Lab (1st floor, no room number) [place] [address], [facility] * hCG Qualitative (02/13/2024 12:16 PM CDT) hCG Serum Qualitative Negative Negative PRATEEK 02/13/2024 12:49 PM CDT [facility] Comment:This test is for scr eening purposes. Results should be interpreted along with the clinical picture. Confirmation testing is available if warranted by ordering [id number], HCG Quantitative . Blood BLOOD SPECIMEN / Unknown Venipuncture / Unknown 02/13/2024 12:16 PM CDT 02/13/2024 12:20 PM CDT Dangelotriny Sylvester LAB - BLOOD ORDE SUDEEP [facility] Care Lab [address] Lab (1st floor, no room number) [place] [address] * Troponin T, High Sensitivity (02/13/2024 12:16 PM CDT) [facility] Troponin T, High Sensitivity <6 <=14 [...] PM CDT 02/13/2024 12:20 PM CDT Dangelotriny Chapin Sylvester LAB - BLOOD ORDE SUDEEP [facility] [address] Lab (1st floor, no room number) [place] [address], [facility] * Partial thromboplastin time (02/13/2024 12:16 PM CDT) aPTT 26 22 - 38 Seconds 02/13/2024 12:42 PM CDT LABORATORY Blood BLOOD SPECIMEN / Unknown Venipuncture / Unknown 02/13/2024 12:16 PM CDT 02/13/2024 12:20 PM CDT Dangelo Sylvester LAB - BLOOD ORDAnaly SHEETS [facility] [address] Lab (1st floor, no room number) [place] [id number] [place] [address] * INR (02/13/2024 12:16 PM CDT) Pathologist [facility] INR 0.94 0.85 - 1.15 02/13/2024 12:42 PM CDT LABORATORY Blood BLOOD SPECIMEN / Unknown Venipuncture / Unknown 02/13/2024 12:16 PM CDT 02/13/2024 12:20 PM CDT Dangelo Sylvester LAB - BLOOD PAM SHEETS Performing Organization Address [facility]/ZIP Co de Phone Number [facility] Care Lab [address] Lab (1st floor, no room number) [place] [phone] * Basic metabolic panel (02/13/2024 12:16 PM CDT) Pathologist [facility] Sodium 140 135 - 145 mmol/L 02/13/2024 [...] Sylvester DO LAB - BLOOD ORDE SUDEEP [facility] Organization Address City/State/ZIP Co de Phone Number LABORATORY [facility] [address] [facility] Lab (1st floor, no room number) [place] [address] documented in this encounter Visit [...] ONCE, Administer over 1-2 Minutes, On Marii 5/30/24 at 1215, For 1 dose $Given 02/13/2024 [...] 1257 ($New Bag - Pro vider: Otto Jara, RN)1521 (Stopped - Provider: Otto Jara RN) [...] documented as of this encounter Care Teams Ironworker Apprentice Shop Relationship Specialty Start Date End Date Winston Villatoro OD [facility] [address] [facility] [address] [place] [address] PCP - Ophthalmology Ophthalmology 02/11/13 Denise Woodson Ra, APRN ECONOMIC DEVELOPMENT SPECIALIST [address] [place] [address] PCP - General Family Practice 09/21/20 Denise Woodson Ra, APRN ECONOMIC DEVELOPMENT SPECIALIST [address] [place] [address] Assigned PCP 07/17/20 Usha Simon APRN ECONOMIC DEVELOPMENT SPECIALIST [address] [facility], [place] [address] Nurse Practitioner Neurological Surgery 01/24/24 Dangelo Salinas MD [address] [place], [place] [id number] Neurology 01/27/24 Usha Simon APRN ECONOMIC DEVELOPMENT SPECIALIST [address] [place], [place] [address], [place] [address] Assigned Neuroscience Provider 02/06/24 03/07/24 Anastasia Stearns, RN Lead Film Projector Operator 02/06/24 documented as of this encounter
--- OUTSIDE RECORDS SUMMARY | 2024-05-17 01:29 | XMS_ITS | Encounter Summary ---
Author Organization [place] Address [address] [place] [address] Care Team Providers Care Oilfield Plant And Field Operator Name Role Phone Yung Madrigal MD Unavailable Unavailable Winston Villatoro OD Unavailable [phone] Denise Woodson Ra, APRN ROPE LAYING MACHINE OPERATOR Unavailable + [phone] Denise Woodson Ra ASSISTANT TENNIS COACH ROPE LAYING MACHINE OPERATOR Primary Care Provid er Usha Simon ASSISTANT TENNIS COACH ROPE LAYING MACHINE OPERATOR Unavailable [phone]- [phone] Dangelo Salinas MD Unavailable Usha Simon ASSISTANT TENNIS COACH ROPE LAYING MACHINE OPERATOR Unavailable +- [phone] Anastasia Stearns RN Unavailable [phone] Germaine Lopez CHW Unavailable [phone] Robin Zepeda MD Unavailable [phone] Lisa Zambrano MD Unavailable + [phone] Raul Hoyos MD Unavailable Encounter Details Date Type Department Care Team (Late st Contact Info) Description 12/30/2020 [facility] Medical Advice [address] [address] Jessica Phipps, IRRIGATOR GRAVITY FLOW Social History Tobacco Use Types Packs/Day Years [...] CDT Office Visit [facility] [address] [place] [phone] Denise Woodson Ra, ASSISTANT TENNIS COACH ROPE LAYING MACHINE OPERATOR [address] [facility], [place] [address] 06/08/2024 8:30 AM CDT Office Visit [facility] [address] [place] [address] Denise Woodson Ra, ASSISTANT TENNIS COACH ROPE LAYING MACHINE OPERATOR [address] [facility], [place] [address] 06/26/2024 2:40 PM CDT Office Visit [facility] Heart [facility] [address] [facility] [address] [place] [address] Danna Cardenas PA-C [address] [place], [place] [address] documented as of this encounter Visit Diagnoses Not on filedocumented in this encounter Additional Health Concerns Assessment Noted Time PHQ-9 Depression Total Score: 0 06/15/20 19 7:09 PM CDT documented as of this encounter Care Teams Oilfield Plant And Field Operator Relationship Specialty Start Date End Date Yung Madrigal MD RETIRED PCP - Orthopaedics Orthopedics 08/26/12 01/20/24 Winston Villatoro OD [facility] [place] [address] [place] [address] PCP - Ophthalmology Ophthalmology 02/11/13 Denise Woodson Ra, APRN ROPE LAYING MACHINE OPERATOR [address] [place] [address] PCP - General Family Practice 09/21/20 Denise Woodson Ra, ASSISTANT TENNIS COACH ROPE LAYING MACHINE OPERATOR [address] [place] [address] Assigned PCP 07/17/20 Usha Simon APRN ROPE LAYING MACHINE OPERATOR [address] [place] [address] Nurse Practitioner Neurological Surgery 01/24/24 Dangelo Salinas MD [address] [place] [address] Neurology 01/27/24 Usha Simon APRN ROPE LAYING MACHINE OPERATOR [address] [address] Assigned Neuroscience Provider 02/06/24 03/07/24 Anastasia Stearns, RN Lead Automotive Sales Representative 02/06/24 Germaine Lopez, W Community Health Worker Primary Care - CC 02/18/24 Robin Zepeda MD [address] [address] Assigned Neuroscience Provider 03/08/24 05/07/24 Lisa Zambrano MD [address] [facility] [address] [place] [address] Assigned Heart and Vascular Provider 05/08/24 Raul Hoyos MD [address] [facility] [address] Assigned Neuroscience Provider 05/08/24 documented as of this encounter
--- OUTSIDE RECORDS SUMMARY | 2024-05-17 01:29 | XMS_ITS | Encounter Summary ---
Author Organization [place] Address [address] [place] [address] Care Team Providers Care Gun Synchronizer Name Role Phone Yung Madrigal MD Unavailable Unavailable Winston Villatoro OD Unavailable [phone] Denise Woodson Ra, APRN HOMELAND SECURITY PROGRAM SPECIALIST Unavailable + [phone] Denise Woodson Ra BARREL HANDLER HOMELAND SECURITY PROGRAM SPECIALIST Primary Care Provid er Usha Simon BARREL HANDLER HOMELAND SECURITY PROGRAM SPECIALIST Unavailable [phone] Dangelo Salinas MD Unavailable Usha Simon BARREL HANDLER HOMELAND SECURITY PROGRAM SPECIALIST Unavailable +- [phone] Anastasia Stearns RN Unavailable Germaine Lopez CHW Unavailable +[phone] Robin Zepeda MD Unavailable [phone] Lisa Zambrano MD Unavailable +- [phone] Raul Hoyos MD Unavailable Reason for Visit * Reason Onset Date Comments URI 09/21/2020 Encounter Details Date Type Department Care Team (Late st Contact Info) Description 09/21/2020 [facility] Medical Advice [facility] [address] [place] [address] Denise Woodson Ra, APRN HOMELAND SECURITY PROGRAM SPECIALIST [address] [place] [address] URI Social History Tobacco Use [...] COVID-19? No / Unsure 09/21/2020 12:04 PM SUPERVISOR BRAKE REPAIR documented as of this encounter Miscellaneous Notes * Telephone Encounter - Kati Yang RN - 09/21/2020 10:54 AM CST [employer] message sent to patient. Kati Yang RN RVISOR BRAKE REPAIR documented in this encounter Plan of Treatment Upcoming Encounters Date Type Department Care Team (Late st Contact Info) Description 05/26/2024 8:30 AM CDT Office Visit [facility] [address] [place] [phone] Denise Woodson Ra, BARREL HANDLER HOMELAND SECURITY PROGRAM SPECIALIST [address] [place] [address] 06/08/2024 8:30 AM CDT Office Visit [facility] [place] [address] [place] [phone] Denise Woodson Ra, BARREL HANDLER HOMELAND SECURITY PROGRAM SPECIALIST [address] [place], [place] [address] 06/26/2024 2:40 PM CDT Office Visit [facility] [address] [facility] [address] [place] [phone] Danna Cardenas PA-C [address] [place] [address] documented as of this encounter Visit Diagnoses Not on filedocumented in this encounter Additional Health Concerns Assessment Noted Time PHQ-9 Depression Total Score: 0 06/15/20 19 7:09 PM CDT documented as of this encounter Care Teams Gun Synchronizer Relationship Specialty Start Date End Date Yung Madrigal MD RETIRED PCP - Orthopaedics Orthopedics 08/26/12 01/20/24 Winston Villatoro OD [facility] [place] [address] [place] [address] PCP - Ophthalmology Ophthalmology 02/11/13 Denise Woodson Ra, APRN HOMELAND SECURITY PROGRAM SPECIALIST [address] [place] [address] PCP - General Family Practice 09/21/20 Denise Woodson Ra, BARREL HANDLER HOMELAND SECURITY PROGRAM SPECIALIST [address] [place] [address] Assigned PCP 07/17/20 Usha Simon APRN HOMELAND SECURITY PROGRAM SPECIALIST [address] [address] Nurse Practitioner Neurological Surgery 01/24/24 Dangelo Salinas MD [address] [place] [address] Neurology 01/27/24 Usha Simon APRN HOMELAND SECURITY PROGRAM SPECIALIST [address] [address] Assigned Neuroscience Provider 02/06/24 03/07/24 Anastasia Stearns, RN Lead Wire Dropper 02/06/24 Germaine Lopez, W Community Health Worker Primary Care - CC 02/18/24 Robin Zepeda MD [address] [address] Assigned Neuroscience Provider 03/08/24 05/07/24 Lisa Zambrano MD [address] [place] [address] Assigned Heart and Vascular Provider 05/08/24 Raul Hoyos MD [address] [id number] Assigned Neuroscience Provider 05/08/24 documented as of this encounter
--- OUTSIDE RECORDS SUMMARY | 2024-05-17 01:29 | XMS_ITS ---
Author Organization [place] Address [address] [place] [address] Care Team Providers Care Edge Sander Name Role Phone Winston Villatoro OD Unavailable Denise Woodson Ra, APRN CHANGE MANAGEMENT EXPERT Unavailable Denise Woodson Ra, APRN CHANGE MANAGEMENT EXPERT Primary Care Provid er Usha Simon MANIFOLD BUILDER CHANGE MANAGEMENT EXPERT Unavailable [phone] Dangelo Salinas MD Unavailable Anastasia Stearns RN Unavailable Germaine Lopez Unavailable Lisa Zambrano MD Unavailable [phone] Raul Hoyos MD Unavailable Primary Care Care Coordination Status:Enrolled (Active) Start date:02/06/2024 Enrollment date:02/07/2024 Case Team Name Relationship Phone Anastasia Stearns RN Lead Cattle Driver(Respons ible Staff) [phone] Germaine Lopez CHW Community Health Worker [phone] Continued Care and Services Coordination
--- OUTSIDE RECORDS SUMMARY | 2024-05-17 01:29 | XMS_ITS | Encounter Summary ---
Author Organization [place] Address [address] [place] [address] Care Team Providers Care Manager Sales And Marketing Name Role Phone Yung Madrigal MD Unavailable Unavailable Winston Villatoro OD Unavailable [phone] Denise Woodson Ra, APRN AREA FIELD MANAGER Unavailable + [phone] Denise Woodson Ra CRITICAL SYSTEMS TECHNICIAN AREA FIELD MANAGER Primary Care Provid er Usha Simon CRITICAL SYSTEMS TECHNICIAN AREA FIELD MANAGER Unavailable [phone] Dangelo Salinas MD Unavailable Usha Simon CRITICAL SYSTEMS TECHNICIAN AREA FIELD MANAGER Unavailable +- [phone] Anastasia Stearns RN Unavailable [phone] Germaine Lopez CHW Unavailable [phone] Robin Zepeda MD Unavailable [phone] Lisa Zambrano MD Unavailable + [phone] Raul Hoyos MD Unavailable Reason for Visit * Reason Onset Date Comments Medication Request 04/20/2021 escitalopram (LEXAPRO) 10 MG tablet Encounter Details Date Type Department Care Team (Late st Contact Info) Description 04/20/2021 [facility] [address] [place] [address] Denise Woodson Ra CRITICAL SYSTEMS TECHNICIAN AREA FIELD MANAGER [address] [place] [address] Medication Request (escitalopram (LEXAPRO)... Social History Tobacco [...] Description 05/26/2024 8:30 AM CDT [facility] [address] [place] [address] Denise Woodson Ra, CRITICAL SYSTEMS TECHNICIAN AREA FIELD MANAGER [address] [place] [address] 06/08/2024 8:30 AM CDT Office Visit [facility] [address] [place] [phone] Denise Woodson Ra, CRITICAL SYSTEMS TECHNICIAN AREA FIELD MANAGER [address] [place] [address] 06/26/2024 2:40 PM CDT Office Visit [facility] [place] [address] [facility] [address] [place] [phone] Danna Cardenas PA-C 6405 [place], [place] 0218[address] documented as of this encounter Visit Diagnoses Diagnosis Generalized anxiety disorder Mild recurrent major depression (H24) Major depressive disorder, recurrent episode, mild documented in this encounter Additional Health Concerns Assessment Noted Time PHQ-9 Depression Total Score: 0 01/05/20 9:31 AM CDT documented as of this encounter Care Teams Manager Sales And Marketing Relationship Specialty Start Date End Date Yung Madrigla MD RETIRED PCP - Orthopaedics Orthopedics 08/26/12 01/20/24 Winston Villatoro OD [facility] [place] [address] [place] [address] PCP - Ophthalmology Ophthalmology 02/11/13 Denise Woodson Ra, APRN AREA FIELD MANAGER [address] [place] [address] PCP - General Family Practice 09/21/20 Denise Woodson Ra, APRN AREA FIELD MANAGER [address] [address] [facility], [place] 7681668 Assigned PCP 07/17/20 Usha Simon APRN AREA FIELD MANAGER [address] [place] [address] 265275 Nurse Practitioner Neurological Surgery 01/24/24 Dangelo Salinas MD [address] [place] [address] Neurology 01/27/24 Usha Simon APRN AREA FIELD MANAGER [address] [address] Assigned Neuroscience Provider 02/06/24 03/07/24 Anastasia Stearns, RN Lead Log Loader Helper 02/06/24 Germaine Lopez, W Community Health Worker Primary Care - CC 02/18/24 Robin Zepeda MD 909 [facility]2121CJ [address] Assigned Neuroscience Provider 03/08/24 05/07/24 Lisa Zambrano MD [address] [place] [address] Assigned Heart and Vascular Provider 05/08/24 Raul Hoyos MD 909 [facility]2121CJ [address] Assigned Neuroscience Provider 05/08/24 documented as of this encounter
--- OUTSIDE RECORDS SUMMARY | 2024-05-17 01:29 | XMS_ITS | Encounter Summary ---
Author Organization [place] Address [address] [place] [address] Care Team Providers Care Account Review Specialist Name Role Phone Yung Madrigal MD Unavailable Unavailable Winston Villatoro OD Unavailable [phone] Denise Woodson Ra, APRN EMPLOYEE RELATIONS CONSULTANT Unavailable [phone] Denise Woodson Ra GROCERY CLERK SELLING EMPLOYEE RELATIONS CONSULTANT Primary Care Provid er Usha Simon GROCERY CLERK SELLING EMPLOYEE RELATIONS CONSULTANT Unavailable [phone] Dangelo Salinas MD Unavailable Usha Simon GROCERY CLERK SELLING EMPLOYEE RELATIONS CONSULTANT Unavailable [phone] Anasatsia Stearns RN Unavailable [phone] Germaine Lopez CHW Unavailable Robin Zepeda MD Unavailable [phone] Lisa Zambrano MD Unavailable +- [phone] Raul Hoyos MD Unavailable Encounter Details Date Type Department Care Team (Late st Contact Info) Description 06/13/2021 [facility] [address] [place] [address] Denise Woodson Ra, APRN EMPLOYEE RELATIONS CONSULTANT [address] [place] [address] Insomnia, unspecified type Social History [...] a refill on file. Prescription approved per [facility] protocol. Mary Caraballo RN on 06/13/2021 at 5:18 PM documented in this encounter Plan of Treatment Upcoming Encounters Date Type Department Care Team (Late st Contact Info) Description 05/26/2024 8:30 AM CDT Office Visit [facility] [address] [place] [phone] Denise Woodson Ra, GROCERY CLERK SELLING EMPLOYEE RELATIONS CONSULTANT [address] [place] [address] 06/08/2024 8:30 AM CDT Office Visit [facility] [address] [place] [phone] Denise Woodson Ra, BARRERA EMPLOYEE RELATIONS CONSULTANT [address] [place] [address] 06/26/2024 2:40 PM CDT Office Visit [facility] 6405 [facility] [address] [place] [phone] Danna Cardenas PA-C 6405 [place], [place] 898925 documented as of this encounter Visit Diagnoses Diagnosis Insomnia, unspecified type documented in this encounter Additional Health Concerns Assessment Noted Time PHQ-9 Depression Total Score: 0 01/05/20 21 9:31 AM CDT documented as of this encounter Care Teams Account Review Specialist Relationship Specialty Start Date End Date Yung Madrigal MD RETIRED PCP - Orthopaedics Orthopedics 08/26/12 01/20/24 Winston Villatoro OD [facility] [place] [address] [place] [address] PCP - Ophthalmology Ophthalmology 02/11/13 Denise Woodson Ra, APRN EMPLOYEE RELATIONS CONSULTANT [address] [facility] [place] [address] PCP - General Family Practice 09/21/20 Denise Woodson Ra, APRN EMPLOYEE RELATIONS CONSULTANT [address] [facility] [place] [address] Assigned PCP 07/17/20 Usha Simon APRN EMPLOYEE RELATIONS CONSULTANT [address] [place] [address] 362545 Nurse Practitioner Neurological Surgery 01/24/24 Dangelo Salinas MD [address] [address] [address] Neurology 01/27/24 Usha Simon APRN EMPLOYEE RELATIONS CONSULTANT [address] [place] [address] Assigned Neuroscience Provider 02/06/24 03/07/24 Anastasia Stearns, RN Lead Price Clerk 02/06/24 Germaine Lopez, [facility] Community Health Worker Primary Care - CC 02/18/24 Robin Zepeda MD [address] [address] Assigned Neuroscience Provider 03/08/24 05/07/24 Lisa Zambrano MD [address] [place] [address] Assigned Heart and Vascular Provider 05/08/24 Raul Hoyos MD [address] [address] Assigned Neuroscience Provider 05/08/24 documented as of this encounter
--- OUTSIDE RECORDS SUMMARY | 2024-05-17 01:29 | XMS_ITS | Encounter Summary ---
Author Organization [place] Address [address] [place] [address]. [place] [address] Care Team Providers Care Animal Assistant Name Role Phone Timmy Perez MD Unavailable Unavailable Encounter Details Date Type Department Care Team (Late Contact Info) Description 01/17/2012 3:20 PM CDT [facility] in [address] [phone] Luis Walsh [address] [place] [address] Interface, Propulsion Engineer, Social History Tobacco Use Types Packs/Day Years [...] AM CDT [facility] [address] [place] [address] Denise Woodson Ra, LINE INSTALLER REPAIRER [facility] [address] [place], [place] 54[address] 06/08/2024 8:30 AM CDT [facility] [address] [place] [address] Denise Woodson Ra, LINE INSTALLER REPAIRER INSPECTOR [place] [address] [facility] [place] [address] 06/26/2024 2:40 PM CDT Office Visit [facility] 6405 [facility] [address] [place] [phone] Danna Cardenas PA-C [address] [place], [place] 901635 documented as of this encounter Visit Diagnoses Not on filedocumented in this encounter Care Teams Animal Assistant Relationship Specialty Start Date End Date Timmy Perez MD PCP - Obstetrics/Gynecology 03/02/0807/18 documented as of this encounter
--- OUTSIDE RECORDS SUMMARY | 2024-05-17 01:29 | XMS_ITS | Encounter Summary ---
Author Organization [place] Address [address] [place] [address] Care Team Providers Care Document Improvement Specialist Name Role Phone Timmy Perez MD Unavailable Unavailable Yung Madrigal MD Unavailable Unavailable Frw, None Primary Care Provider Unavailabl e Winston Villatoro OD Unavailable [phone] Apple Sykes MD Primary Care Provider Unavailab Westley Vera MD Unavailable [phone] Alessandra Cabrales APRN OVERHEAD CRANE INSPECTOR Primary Car e Provider Serum, Clara Garland MD Primary Care Provider Serum, Clara Garland MD Unavailable [phone] Serum, Clara Garland MD Unavailable [phone] Denise Woodson Ra, APRN OVERHEAD CRANE INSPECTOR Unavailable + [phone] Denise Woodson Ra, APRN OVERHEAD CRANE INSPECTOR Primary Care Provid er Usha Simon APRN OVERHEAD CRANE INSPECTOR Unavailable + [phone] Dangelo Salinas MD Unavailable Usha Simon APRN OVERHEAD CRANE INSPECTOR Unavailable + [phone] Anastasia Stearns RN Unavailable [phone] Germaine Lopez CHW Unavailable [phone] Robin Zepeda MD Unavailable [phone] Lisa Zambrano MD Unavailable + [phone] Raul Hoyos MD Unavailable Reason for Visit * Reason Onset Date Comments Medication Question 04/21/2013 Farhan Saez [facility] Encounter Details Date Type Department Care Team (Late st Contact Info) Description 04/21/2013 Telephone [facility] in [facility] [address] [place] [address] Janna Rodriguez, joint special operations Question (Farhan [facility]) Social History Tobacco Use Types [...] 05/26/2024 8:30 AM CDT Office Visit [address] [address] Denise Woodson Ra, WAREHOUSE RECEIVER OVERHEAD CRANE INSPECTOR [address] [facility], [place] 5363768 06/08/2024 8:30 AM CDT Office Visit [facility] [place] [address] [facility] [phone] Denise Woodson Ra, WAREHOUSE RECEIVER OVERHEAD CRANE INSPECTOR [address] [facility] [place] [place] [address] 06/26/2024 2:40 PM CDT [facility] 6405 [facility] [address] [place] [phone] Danna Cardenas PA-C 6405 [place], [place] [address] documented as of this encounter Visit Diagnoses Not on filedocumented in this encounter Care Teams Document Improvement Specialist Relationship Specialty Start Date End Date Timmy Perez MD PCP - Obstetrics/Gynecology 03/02/08 08/07/15 Yung Madrigal MD RETIRED PCP - Orthopaedics Orthopedics 08/26/12 01/20/24 Frw, None PCP - General Family Practice 08/26/12 05/03/13 Winston Villatoro OD [facility] [place] [address] [place] [address] PCP - Ophthalmology Ophthalmology 02/11/13 Apple Sykes MD [facility] [place] [address] [place] [address] PCP - General Family Practice 05/04/13 10/25/16 Westley Bates MD XXX RETIRED [place] [address] [place], [place] 4[address] PCP - ENT Otolaryngology 05/14/13 07/28/18 GeorginaAlessandra Celeste APRN OVERHEAD CRANE INSPECTOR [address] [facility] [place] [place] [address] PCP - General Nurse Practitioner 10/26/16 02/06/17 Clara Cornell MD 3[address] [facility] [place] [place] [address] PCP - General Internal Medicine 02/07/17 09/20/20 Clara Cornell MD 8675 [place] [address] PCP - Assigned PCP 01/17/17 11/18/18 Denise Woodson Ra, APRN OVERHEAD CRANE INSPECTOR [address] [place] [address] PCP - General Family Practice 09/21/20 Clara Cornell MD 8675 [place] [address] Assigned PCP 01/17/17 07/16/20 Denise Woodson Ra, APRN OVERHEAD CRANE INSPECTOR [address] [facility] [place] [address] Assigned PCP 07/17/20 Usha Simon APRN OVERHEAD CRANE INSPECTOR 9 [facility]2121[place], [place] [address] Nurse Practitioner Neurological Surgery 01/24/24 Dangelo Salinas MD [address] [address] [address] Neurology 01/27/24 Usha Simon APRN CNP [address] [address] Assigned Neuroscience Provider 02/06/24 03/07/24 Anastasia Stearns, RN Lead Screw Remover 02/06/24 Germaine Lopez, W Community Health Worker Primary Care - CC 02/18/24 Robin Zepeda MD [address] [place] [address] Assigned Neuroscience Provider 03/08/24 05/07/24 Lisa Zambrano MD [address] [place] [address] Assigned Heart and Vascular Provider 05/08/24 Raul Hoyos MD [address] [address] Assigned Neuroscience Provider 05/08/24 documented as of this encounter
--- OUTSIDE RECORDS SUMMARY | 2024-05-17 01:29 | XMS_ITS | Encounter Summary ---
Author Organization [place] Address [address] [place] [address] Care Team Providers Care Chain Splitter Name Role Phone Yung Madrigal MD Unavailable Unavailable Winston Villatoro OD Unavailable [phone] Denise Woodson Ra, APRN LOADING MANAGER Unavailable + [phone] Denise Woodson Ra HEAD OF MARKETING ADOMETRY LOADING MANAGER Primary Care Provid er Usha Simon HEAD OF MARKETING ADOMETRY LOADING MANAGER Unavailable + [phone] Dangelo Salinas MD Unavailable Usha Simon HEAD OF MARKETING ADOMETRY LOADING MANAGER Unavailable +[phone] Anastasia Stearns RN Unavailable +[phone] Germaine Lopez CHW Unavailable [phone] Robin Zepeda MD Unavailable [phone] Lisa Zambrano MD Unavailable + [phone] Raul Hoyos MD Unavailable [phone] Encounter Details Date Type Department Care Team (Late st Contact Info) Description 01/22/2022 [facility] [address] [address] Angelo Escobar Social History Tobacco [...] 05/26/2024 8:30 AM CDT [facility] [address] [place] [phone] Denise Woodson Ra, HEAD OF MARKETING ADOMETRY LOADING MANAGER [address] [facility], [place] [id number] 06/08/2024 8:30 AM CDT Office Visit [facility] [address] [place] [phone] Denise Woodson Ra, HEAD OF MARKETING ADOMETRY LOADING MANAGER [address] [facility], [place] 6096[address] 06/26/2024 2:40 PM CDT Office Visit [facility] 6405 [facility] [address] [place] [address] Danna Cardenas PA-C 6405 [place], [place] 5357[address] documented as of this encounter Visit Diagnoses Not on filedocumented in this encounter Additional Health Concerns Assessment Noted Time PHQ-9 Depression Total Score: 0 06/23/20 21 4:11 PM CDT documented as of this encounter Care Teams Chain Splitter Relationship Specialty Start Date End Date Yung Madrigal MD RETIRED PCP - Orthopaedics Orthopedics 08/26/12 01/20/24 Winston Villatoro, OD [facility] 701 [facility] [address] [place], [place] 16[address] PCP - Ophthalmology Ophthalmology 02/11/13 Denise Woodson Ra, HEAD OF MARKETING ADOMETRY LOADING MANAGER [address] [place] [address] PCP - General Family Practice 09/21/20 Denise Woodson Ra HEAD OF MARKETING ADOMETRY LOADING MANAGER [address] [place] [address] Assigned PCP 07/17/20 Usha Simon APRN LOADING MANAGER [address] 382765 Nurse Practitioner Neurological Surgery 01/24/24 Dangelo Salinas MD [address] [id number] Neurology 01/27/24 Usha Simon APRN LOADING MANAGER [address] 696735 Assigned Neuroscience Provider 02/06/24 03/07/24 Anastasia Stearns, RN Lead Can Line Examiner 02/06/24 Germaine Lopez, CHW Community Health Worker Primary Care - CC 02/18/24 Robin Zepeda MD [address] 500475 Assigned Neuroscience Provider 03/08/24 05/07/24 Lisa Zambrano MD 6405 [facility] [address] [place] [address] Assigned Heart and Vascular Provider 05/08/24 Raul Hoyos MD 909 [facility]2[place] [address] Assigned Neuroscience Provider 05/08/24 documented as of this encounter
--- OUTSIDE RECORDS SUMMARY | 2024-05-17 01:29 | XMS_ITS | Encounter Summary ---
Author Organization [place] Address [address] [place] [address] Care Team Providers Care Sock Knitter Name Role Phone Yung Madrigal MD Unavailable Unavailable Winston Villatoro OD Unavailable [phone] Denise Woodson Ra, APRN SENIOR COMMERCIAL LOAN OFFICER Unavailable [phone] Denise Woodson Ra SOCIAL MEDIA CONTENT MANAGER SENIOR COMMERCIAL LOAN OFFICER Primary Care Provid er Usha Simon SOCIAL MEDIA CONTENT MANAGER SENIOR COMMERCIAL LOAN OFFICER Unavailable [phone] Dangelo Salinas MD Unavailable Usha Simon SOCIAL MEDIA CONTENT MANAGER SENIOR COMMERCIAL LOAN OFFICER Unavailable [phone] Anastasia Stearns RN Unavailable Germaine Lopez CHW Unavailable Robin Zepeda MD Unavailable Lisa Zambrano MD Unavailable [phone] Raul Hoyos MD Unavailable Reason for Visit * Reason Comments Medication Refill Encounter Details Date Type Department Care Team (Late st Contact Info) Description 06/11/2021 Refill [facility] [address]305 [facility] [address] [place] [address] Denise Woodson Ra, SOCIAL MEDIA CONTENT MANAGER SENIOR COMMERCIAL LOAN OFFICER [address] [place] [address] Medication Refill Social History Tobacco [...] Description 05/26/2024 8:30 AM CDT Office Visit [facility] [address] [place] [phone] Denise Woodson Ra, SOCIAL MEDIA CONTENT MANAGER SENIOR COMMERCIAL LOAN OFFICER [address] [place], [place] 53370[address] 06/08/2024 8:30 AM CDT Office Visit [facility] [address] [place] [address] Denise Woodson Ra, SOCIAL MEDIA CONTENT MANAGER SENIOR COMMERCIAL LOAN OFFICER [address] [facility], [place] [id number] 06/26/2024 2:40 PM CDT [facility] 6405 [facility] [address] [place] [phone] Danna Cardenas PA-C 6405 [place], [place] 038515 documented as of this encounter Visit Diagnoses Diagnosis Insomnia, unspecified type documented in this encounter Additional Health Concerns Assessment Noted Time PHQ-9 Depression Total Score: 0 01/05/20 9:31 AM CDT documented as of this encounter Care Teams Sock Knitter Relationship Specialty Start Date End Date Yung Madrigal MD RETIRED PCP - Orthopaedics Orthopedics 08/26/12 01/20/24 Winston Villatoro OD [facility] [place] [address] [place] [address] PCP - Ophthalmology Ophthalmology 02/11/13 Denise Woodson Ra, APRN SENIOR COMMERCIAL LOAN OFFICER [address] [place] [address] PCP - General Family Practice 09/21/20 Denise Woodson Ra SOCIAL MEDIA CONTENT MANAGER SENIOR COMMERCIAL LOAN OFFICER [address] [address] [place] [address] Assigned PCP 07/17/20 Usha Simon APRN SENIOR COMMERCIAL LOAN OFFICER [address] [place] [address] 374695 Nurse Practitioner Neurological Surgery 01/24/24 Dangelo Salinas MD [address] [place] [address] Neurology 01/27/24 Usha Simon APRN SENIOR COMMERCIAL LOAN OFFICER [address] [address] Assigned Neuroscience Provider 02/06/24 03/07/24 Anastasia Stearns, RN Lead Reproduction Order Processor 02/06/24 Germaine Lopez, W Community Health Worker Primary Care - CC 02/18/24 Robin Zepeda MD [address] [address] Assigned Neuroscience Provider 03/08/24 05/07/24 Lisa Zambrano MD [address] [facility] [address] [place] [address] Assigned Heart and Vascular Provider 05/08/24 Raul Hoyos MD 909 [id number] [address] Assigned Neuroscience Provider 05/08/24 documented as of this encounter
--- OUTSIDE RECORDS SUMMARY | 2024-05-17 01:29 | XMS_ITS | Encounter Summary ---
Author Organization [facility] Address [address] [place] [address] 11827 Care Team Providers Care Highballer Name Role Phone Yung Madrigal MD Unavailable Unavailable Winston Villatoro OD Unavailable [phone] Serum, Clara Garland MD Primary Care Provider Serum, Clara Garland MD Unavailable [phone] Denise Woodson Ra BOARD CERTIFIED ARTS THERAPIST BIRTHING NURSE Unavailable + [phone] Denise Woodson Ra BOARD CERTIFIED ARTS THERAPIST BIRTHING NURSE Primary Care Provid er Usha Simon APRN BIRTHING NURSE Unavailable +[phone] Dangelo Salinas MD Unavailable Usha Simon BOARD CERTIFIED ARTS THERAPIST BIRTHING NURSE Unavailable + [phone] Anastasia Stearns RN Unavailable +[phone] Germaine Lopez CHW Unavailable +[phone] Robin Zepeda MD Unavailable +[phone] Lisa Zambrano MD Unavailable + [phone] Raul Hoyos MD Unavailable [phone] Encounter Details Date Type Department Care Team (Late st Contact Info) Description 01/21/2019 [facility] [address] [place] [address] Phoebe Del Cid Social History [...] 8:30 AM CDT Office Visit [facility] [address] [place] [address] Denise Woodson Ra, BOARD CERTIFIED ARTS THERAPIST BIRTHING NURSE [address] [facility], [place] 1392768 06/08/2024 8:30 AM CDT Office Visit [facility] [address] [place] [address] Denise Woodson Ra, BOARD CERTIFIED ARTS THERAPIST BIRTHING NURSE [address] [facility], [place] 8391368 06/26/2024 2:40 PM CDT Office Visit [facility] [place] [address] [facility] [address] [place] [address] Danna Cardenas PA-C 6405 [place], [place] 956575 documented as of this encounter Visit Diagnoses Not on filedocumented in this encounter Additional Health Concerns Assessment Noted Time PHQ-9 Depression Total Score: 0 02/09/20 17 7:29 AM CDT documented as of this encounter Care Teams Highballer Relationship Specialty Start Date End Date Yung Madrigal MD RETIRED PCP - Orthopaedics Orthopedics 08/26/12 01/20/24 Winston Villatoro OD [facility] [address] [facility] [address] [place] [address] PCP - Ophthalmology Ophthalmology 02/11/13 Clara Cornell MD [facility] [address] [place] [address] PCP - General Internal Medicine 02/07/17 09/20/20 Denise Woodson Ra, APRN BIRTHING NURSE [address] [place] [address] PCP - General Family Practice 09/21/20 Clara Cornell MD 8675 [place] [address] Assigned PCP 01/17/17 07/16/20 Denise Woodson Ra, APRN BIRTHING NURSE [address] [place] [address] Assigned PCP 07/17/20 Usha Simon APRN BIRTHING NURSE [address] [place] [address] Nurse Practitioner Neurological Surgery 01/24/24 [place] [address] [place] [address] Neurology 01/27/24 Usha Simon APRN BIRTHING NURSE [address] [address] Assigned Neuroscience Provider 02/06/24 03/07/24 Anastasia Stearns, RN Lead Transporter Radiology 02/06/24 Germaine Lopez, [facility] Community Health Worker Primary Care - CC 02/18/24 Robin Zepeda MD [address] [address] Assigned Neuroscience Provider 03/08/24 05/07/24 Lisa Zambrano MD 6405 [facility] [address] [place] [address] Assigned Heart and Vascular Provider 05/08/24 Raul Hoyos MD [address] [address] Assigned Neuroscience Provider 05/08/24 documented as of this encounter
--- OUTSIDE RECORDS SUMMARY | 2024-05-17 01:29 | XMS_ITS ---
Author Organization [place] Address [address] [place] [address] Care Team Providers Care Imaging Tech Name Role Phone Winston Villatoro OD Unavailable [phone] Denise Woodson Ra, APRN TUBE MAN Unavailable Denise Woodson Ra, APRN TUBE MAN Primary Care Provid er Usha Simon APRN TUBE MAN Unavailable [phone] Dangelo Salinas MD Unavailable Anastasia Stearns RN Unavailable Germaine Lopez CHW Unavailable Lisa Zambrano MD Unavailable [phone] Rual Hoyos MD Unavailable Transitional Care Management Status:Closed (Closed) Start date:01/27/2024 Enrollment date:01/28/2024 End date:02/10/2024 Close reason:Goals met Continued Care and Services Coordination
--- OUTSIDE RECORDS SUMMARY | 2024-05-17 01:29 | XMS_ITS | Encounter Summary ---
Author Organization [facility] Address [address] [place] [address] Care Team Providers Care Musical Instrument Supervisor Name Role Phone Timmy Perez MD Unavailable Unavailable Yung Madrigal MD Unavailable Unavailable Frw, None Primary Care Provider Unavailabl e Winston Villatoro OD Unavailable [phone] Apple Sykes MD Primary Care Provider Unavailab Westley Vera MD Unavailable Alessandra Cabrales APRN INSOLE TAPER Primary Car e Provider Serum, Clara Garland MD Primary Care Provider Serum, Clara Garland MD Unavailable +[phone] Serum, Clara Garland MD Unavailable [phone] Denise Woodson Ra, APRN INSOLE TAPER Unavailable + [phone] Denise Woodson Ra, APRN INSOLE TAPER Primary Care Provid er Usha Simon APRN INSOLE TAPER Unavailable + [phone] Dangelo Salinas MD Unavailable Usha Simon APRN INSOLE TAPER Unavailable + [phone] Anastasia Stearns RN Unavailable +[phone] Germaine Lopez CHW Unavailable [phone] Robin Zepeda MD Unavailable +[phone] Lisa Zambrano MD Unavailable + [phone] Raul Hoyos MD Unavailable Encounter Details Date Type Department Care Team (Late st Contact Info) Description 01/30/2006 [facility] [place] Inpatient Dept [address] [place] [address] Frw, Inpatient Provider Social History Tobacco Use [...] pain. PROCEDURE: TOTAL VAGINAL HYSTERECTOMY. SURGEON: Chris TITLE CLOSER: Radha ANESTHESIA: Spinal ESTIMATED BLOOD LOSS: 100 [...] 8:30 AM CDT Office Visit [facility] [address] [place] [address] Denise Woodson Ra, FOAM CASTER INSOLE TAPER [address] [facility], [place] 79067[address] 06/08/2024 8:30 AM CDT Office Visit [facility] [place] [address] [facility] [place] [address] Denise Woodson Ra, FOAM CASTER INSOLE TAPER [address] [facility], [place] 2166168 06/26/2024 2:40 PM CDT Office Visit [facility] [place] [address] [facility] [address] [place] [address] Danna Cardenas PA-C 6405 [facility], [place] 277025 documented as of this encounter Visit Diagnoses Not on filedocumented in this encounter Care Teams Musical Instrument Supervisor Relationship Specialty Start Date End Date Timmy Perez MD PCP - Obstetrics/Gynecology 03/02/08 08/07/15 Yung Madrigal MD RETIRED PCP - Orthopaedics Orthopedics 08/26/12 01/20/24 Frw, None PCP - General Family Practice 08/26/12 05/03/13 Winston Villatroo, OD [facility] [place] [address] [place] [address] PCP - Ophthalmology Ophthalmology 02/11/13 Apple Sykes MD [facility] [place] [address] [place] [address] PCP - General Family Practice 05/04/13 10/25/16 Westley Bates MD XXX RETIRED XXX [address] [place] [address] PCP - ENT Otolaryngology 05/14/13 07/28/18 GeorginaAlessandra Gómez APRN INSOLE TAPER [address] [facility] [place] [id number] PCP - General Nurse Practitioner 10/26/16 02/06/17 Clara Cornell MD 3305 [facility] [place] [address] PCP - General Internal Medicine 02/07/17 09/20/20 Clara Cornell MD 8675 [facility] [place] [address] PCP - Assigned PCP 01/17/17 11/18/18 Denise Woodson Ra FOAM CASTER INSOLE TAPER [address] [place] [address] PCP - General Family Practice 09/21/20 Clara Cornell MD 8675 [place] [address] Assigned PCP 01/17/17 07/16/20 Denise Woodson Ra, APRN INSOLE TAPER [address] [place] [address] Assigned PCP 07/17/20 Usha Simon APRN INSOLE TAPER [address] 332045 Nurse Practitioner Neurological Surgery 01/24/24 Dangelo Salinas MD [address] [place], [place] [id number] Neurology 01/27/24 Usha Simon APRN INSOLE TAPER [address] [id number] Assigned Neuroscience Provider 02/06/24 03/07/24 Anastasia Stearns, RN Lead Street Light Repairer 02/06/24 Germaine Lopez, W Community Health Worker Primary Care - CC 02/18/24 Robin Zepeda MD [address] [id number] Assigned Neuroscience Provider 03/08/24 05/07/24 Lisa Zambrano MD [address] [place] [id number] Assigned Heart and Vascular Provider 05/08/24 Raul Hoyos MD 9 [facility]121[place], [place] [address] Assigned Neuroscience Provider 05/08/24 documented as of this encounter
--- OUTSIDE RECORDS SUMMARY | 2024-05-17 01:29 | XMS_ITS | Encounter Summary ---
Author Organization [facility] Address [address] [place] [address] Care Team Providers Care Respiratory Therapist Name Role Phone Timmy Perez MD Unavailable Unavailable Yung Madrigal MD Unavailable Unavailable Frw, None Primary Care Provider Unavailabl e Winston Villatoro OD Unavailable [phone] Apple Sykes MD Primary Care Provider Unavailab Westley Vera MD Unavailable [phone] Alessandra Cabrales APRN SHIRT HEMMER Primary Car e Provider Serum, Clara Garland MD Primary Care Provider Serum, Clara Garland MD Unavailable [phone] Serum, Clara Garland MD Unavailable [phone] Denise Woodson Ra, APRN SHIRT HEMMER Unavailable + [phone] Denise Woodson Ra, APRN SHIRT HEMMER Primary Care Provid er Usha Simon APRN SHIRT HEMMER Unavailable + [phone] Dangelo Salinas MD Unavailable Usha Simon APRN SHIRT HEMMER Unavailable + [phone] Anastasia Stearns RN Unavailable +[phone] Germaine Lopez CHW Unavailable [phone] Robin Zepeda MD Unavailable +[phone] Lisa Zambrano MD Unavailable + [phone] Raul Hoyos MD Unavailable Encounter Details Date Type Department Care Team (Late st Contact Info) Description 01/31/2006 [facility] [place] ADJUNCT POLITICAL SCIENCE INSTRUCTOR [address] [place] [address] Timmy Perez MD Social History Tobacco Use [...] CDT [facility] [address] [place] [phone] Denise Woodson Ra, NURSING INFORMATICS ANALYST SHIRT HEMMER [address] [place], [place] 6597968 06/08/2024 8:30 AM CDT [facility] [address] [place] [address] Denise Woodson Ra, NURSING INFORMATICS ANALYST SHIRT HEMMER [address] [place], [place] 9249868 06/26/2024 2:40 PM CDT Office Visit [facility] 6[address] [facility] [address] [place] [address] Danna Cardenas PA-C 6405 [place], [place] 776[address] documented as of this encounter Visit Diagnoses Not on filedocumented in this encounter Care Teams Respiratory Therapist Relationship Specialty Start Date End Date Timmy Perez MD PCP - Obstetrics/Gynecology 03/02/08 08/07/15 Yung Madrigal MD RETIRED PCP - Orthopaedics Orthopedics 08/26/12 01/20/24 Frw, None PCP - General Family Practice 08/26/12 05/03/13 Winston Villatoro, OD [facility] [place] [address] [place] [address] PCP - Ophthalmology Ophthalmology 02/11/13 Apple Sykes MD [facility] [place] [address] [place] [address] PCP - General Family Practice 05/04/13 10/25/16 Westley Bates MD XXX RETIRED XXX [address] [place] [address] PCP - ENT Otolaryngology 05/14/13 07/28/18 [facility] NURSING INFORMATICS ANALYST SHIRT HEMMER 3305 [facility] [place] [id number] PCP - General Nurse Practitioner 10/26/16 02/06/17 Clara Cornell MD [address] [facility] [place] [address] PCP - General Internal Medicine 02/07/17 09/20/20 Clara Cornell MD [address]75 [place] [address] PCP - Assigned PCP 01/17/17 11/18/18 Denise Woodson Ra, NURSING INFORMATICS ANALYST SHIRT HEMMER [address] [place] [address] PCP - General Family Practice 09/21/20 Clara Cornell MD 8675 [place] [address] Assigned PCP 01/17/17 07/16/20 Denise Woodson Ra, APRN SHIRT HEMMER [address] [facility] [place] [address] Assigned PCP 07/17/20 Usha Simon APRN SHIRT HEMMER [address] 382965 Nurse Practitioner Neurological Surgery 01/24/24 Dangelo Salinas MD [address] [place], [place] [address] Neurology 01/27/24 Usha Simon APRN SHIRT HEMMER [address] 723235 Assigned Neuroscience Provider 02/06/24 03/07/24 Anastasia Stearns, RN Lead Senior Cytotechnologist 02/06/24 Germaine Lopez, W Community Health Worker Primary Care - CC 02/18/24 Robin Zepeda MD [address] 763615 Assigned Neuroscience Provider 03/08/24 05/07/24 Lisa Zambrano MD [address] [place] [address] Assigned Heart and Vascular Provider 05/08/24 Raul Hoyos MD 9 [facility]121[place], [place] [address] Assigned Neuroscience Provider 05/08/24 documented as of this encounter
--- OUTSIDE RECORDS SUMMARY | 2024-05-17 01:29 | XMS_ITS | Encounter Summary ---
Author Organization [facility] Address [address] [place] [address] Care Team Providers Care Psychiatric Arnp Name Role Phone Timmy Perez MD Unavailable Unavailable Yung Madrigal MD Unavailable Unavailable Winston Villatoro OD Unavailable [phone] Appel Sykes MD Primary Care Provider Unavailab Westley Vera MD Unavailable [phone] Alessandra Cabrales APRN POTATO PANCAKE FRIER Primary Car e Provider Serum, Clara Garland MD Primary Care Provider Serum, Clara Garland MD Unavailable +[phone] Serum, Clara Garland MD Unavailable [phone] Denise Woodson Ra, APRN POTATO PANCAKE FRIER Unavailable + [phone] Denise Woodson Ra, APRN POTATO PANCAKE FRIER Primary Care Provid er Usha Simon APRN POTATO PANCAKE FRIER Unavailable + [phone] Dangelo Salinas MD Unavailable Usha Simon APRN POTATO PANCAKE FRIER Unavailable + [phone] Anastasia Stearns RN Unavailable +[phone] Germaine Lopez CHW Unavailable [phone] Robin Zepeda MD Unavailable +[phone] Lisa Zambrano MD Unavailable + [phone] Raul Hoyos MD Unavailable Reason for Visit * Reason Onset Date Comments MyChart Communication 05/30/2013 Encounter Details Date Type Department Care Team (Latest Contact Info) Description 05/30/2013 MyC Medical Advice [facility] in [facility] [address] [place] [address] Apple Sykes MD MyChart Communication Social History [...] CDT [facility] [address] [place] [phone] Denise Woodson Ra, PERINATAL DIRECTOR POTATO PANCAKE FRIER [address] [place], [place] 96129[address] 06/08/2024 8:30 AM CDT [facility] [address] [place] [phone] Denise Woodson Ra, PERINATAL DIRECTOR POTATO PANCAKE FRIER [address] [place], [place] 16697[address] 06/26/2024 2:40 PM CDT Office [facility] [place] 6405 [facility] [address] [place] [address] Danna Cardenas PA-C 640 [place], [place] 162825 documented as of this encounter Visit Diagnoses Not on filedocumented in this encounter Care Teams Psychiatric Arnp Relationship Specialty Start Date End Date Timmy Perez MD PCP - Obstetrics/Gynecology 03/02/08 08/07/15 Yung Madrigal MD RETIRED PCP - Orthopaedics Orthopedics 08/26/12 01/20/24 Winston Villatoro OD [facility] [place] [address] [place], [place] 9066166 PCP - Ophthalmology Ophthalmology 02/11/13 Apple Sykes MD [facility] [place] [address] [place] [address] PCP - General Family Practice 05/04/13 10/25/16 Westley Bates MD XXX RETIRED XXX [address] [place] [address] PCP - ENT Otolaryngology 05/14/13 07/28/18 GeorginaAlessandra Gómez, PERINATAL DIRECTOR POTATO PANCAKE FRIER 3305 [facility] [place] [address] PCP - General Nurse Practitioner 10/26/16 02/06/17 Clara Cornell MD 3305 [facility] [place] [address] PCP - General Internal Medicine 02/07/17 09/20/20 Clara Cornell MD 8675 [place] [address] PCP - Assigned PCP 01/17/17 11/18/18 Denise Woodson Ra, PERINATAL DIRECTOR POTATO PANCAKE FRIER [address] [place] [address] PCP - General Family Practice 1/6/21 Clara Cornell MD 8675 [place] [address] Assigned PCP 01/17/17 07/16/20 Denise Woodson Ra, APRN POTATO PANCAKE FRIER [address] [place] [address] Assigned PCP 07/17/20 Usha Simon APRN POTATO PANCAKE FRIER [address] 282355 Nurse Practitioner Neurological Surgery 01/24/24 Dangelo Salinas MD [address] [place] [address] Neurology 01/27/24 Usha Simon APRN POTATO PANCAKE FRIER [address] 145065 Assigned Neuroscience Provider 02/06/24 03/07/24 Anastasia Stearns, RN Lead Event Representative 02/06/24 Germaine Lopez, W Community Health Worker Primary Care - CC 02/18/24 Robin Zepeda MD [address] 143785 Assigned Neuroscience Provider 03/08/24 05/07/24 Lisa Zambrano MD [address] [place] [address] Assigned Heart and Vascular Provider 05/08/24 Raul Hoyos MD 909 [facility] [address] Assigned Neuroscience Provider 05/08/24 documented as of this encounter
--- OUTSIDE RECORDS SUMMARY | 2024-05-17 01:29 | XMS_ITS | Encounter Summary ---
Author Organization [facility] Address [address] [place] [address] Care Team Providers Care Chief Operations Officer Name Role Phone Timmy Perez MD Unavailable Unavailable Yung Madrigal MD Unavailable Unavailable Winston Villatoro OD Unavailable [phone] Apple Sykes MD Primary Care Provider Unavailab Westley Vera MD Unavailable [phone] Alessandra Cabrales APRN LIFESTYLE BLOCK FARMER Primary Car e Provider Serum, Clara Garland MD Primary Care Provider Serum, Clraa Garland MD Unavailable Serum, Clara Garland MD Unavailable [phone] Denise Woodson Ra, APRN LIFESTYLE BLOCK FARMER Unavailable + [phone] Denise Woodson Ra, APRN LIFESTYLE BLOCK FARMER Primary Care Provid er Usha Simon APRN LIFESTYLE BLOCK FARMER Unavailable + [phone] Dangelo Salinas MD Unavailable Usha Simon APRN LIFESTYLE BLOCK FARMER Unavailable + [phone] Anastasia Stearns RN Unavailable +[phone] Germaine Lopez CHW Unavailable [phone] Robin Zepeda MD Unavailable +[phone] Lisa Zambrano MD Unavailable + [phone] Raul Hoyos MD Unavailable Encounter Details Date Type Department Care Team (Late st Contact Info) Description 05/06/2013 MyC Medical Advice [facility] in [facility] [address] [place] [phone] Apple Sykes MD Social History Tobacco Use [...] [facility] [address] [place] [phone] Denise Woodson Ra, MEDICAL TECHNOLOGIST MICROBIOLOGY LIFESTYLE BLOCK FARMER [address] [place] [address] 06/08/2024 8:30 AM CDT [facility] [address] [place] [phone] Denise Woodson Ra, MEDICAL TECHNOLOGIST MICROBIOLOGY LIFESTYLE BLOCK FARMER [address] [place] [address] 06/26/2024 2:40 PM CDT Office Visit [facility] 6405 [facility] [address] [place] [phone] Danna Cardenas PA-C 6405 [place], [place] 290715 documented as of this encounter Visit Diagnoses Not on filedocumented in this encounter Care Teams Chief Operations Officer Relationship Specialty Start Date End Date Timmy Perez MD PCP - Obstetrics/Gynecology 03/02/08 08/07/15 Yung Madrigal MD RETIRED PCP - Orthopaedics Orthopedics 08/26/12 01/20/24 Winston Villatoro OD [facility] [place] [address] [place] [address] PCP - Ophthalmology Ophthalmology 02/11/13 Apple Sykes MD [facility] [place] [address] [place] [address] PCP - General Family Practice 05/04/13 10/25/16 Westley Bates MD XXX RETIRED XXX [address] [place] [address] PCP - ENT Otolaryngology 05/14/13 07/28/18 Alessandra Cabrales APRN LIFESTYLE BLOCK FARMER [address] [facility] [place] [address] PCP - General Nurse Practitioner 10/26/16 02/06/17 Clara Cornell MD [address] [facility] [place] [address] PCP - General Internal Medicine 02/07/17 09/20/20 Clara Cornell MD [address] [place] [address] PCP - Assigned PCP 01/17/17 11/18/18 Denise Woodson Ra, APRN LIFESTYLE BLOCK FARMER [address] [place] [address] PCP - General Family Practice 09/21/20 Clara Cornell MD [address] [place] [address] Assigned PCP 01/17/17 07/16/20 Denise Woodson Ra, APRN LIFESTYLE BLOCK FARMER [address] [place] [address] Assigned PCP 07/17/20 Usha Simon APRN LIFESTYLE BLOCK FARMER [address] [place] [address] Nurse Practitioner Neurological Surgery 01/24/24 Dangelo Salinas MD [address] [place] [address] Neurology 01/27/24 Usha Simon APRN LIFESTYLE BLOCK FARMER [address] [place] [address] Assigned Neuroscience Provider 02/06/24 03/07/24 Anastasia Stearns, RN Lead Airplane Rigger 02/06/24 Germaine Lopez, W Community Health Worker Primary Care - CC 02/18/24 Robin Zepeda MD [address] [address] Assigned Neuroscience Provider 03/08/24 05/07/24 Lisa Zambrano MD [address] [place] [address] Assigned Heart and Vascular Provider 05/08/24 Raul Hoyos MD 909 [facility] [id number] [place] [address] Assigned Neuroscience Provider 05/08/24 documented as of this encounter
--- OUTSIDE RECORDS SUMMARY | 2024-05-17 01:29 | XMS_ITS | Encounter Summary ---
Author Organization [place] Address [address] [place] [address] Care Team Providers Care Pianos And Organs Salesperson Name Role Phone Yung Madrigal MD Unavailable Unavailable Winston Villatoro OD Unavailable [phone] Serum, Clara Garland MD Primary Care Provider Serum, Clara Garland MD Unavailable [phone] Denise Woodson Ra WHITE WASHER AEROSPACE ENGINEER Unavailable + [phone] Denise Woodson Ra WHITE WASHER AEROSPACE ENGINEER Primary Care Provid er Usha Simon APRN AEROSPACE ENGINEER Unavailable + [phone] Dangelo Salinas MD Unavailable Usha Simon WHITE WASHER AEROSPACE ENGINEER Unavailable + [phone] Anastasia Stearns RN Unavailable +[phone] Germaine Lopez CHW Unavailable +[phone] Robin Zepeda MD Unavailable +[phone] Lisa Zambrano MD Unavailable + [phone] Raul Hoyos MD Unavailable Encounter Details Date Type Department Care Team (Late st Contact Info) Description 06/16/2019 [facility] [address] [facility] [address] [place] [address] Serum, Clara Garland MD [address] [place] [address] Social History Tobacco Use Types Packs/Day Years [...] CDT [facility] [address] [place] [phone] Denise Woodson Ra, WHITE WASHER AEROSPACE ENGINEER [address] [place], [place] 7052568 06/08/2024 8:30 AM CDT Office Visit [facility] [address] [place] [phone] Denise Woodson Ra, WHITE WASHER AEROSPACE ENGINEER [address] [place], [place] 3283468 06/26/2024 2:40 PM CDT Office Visit [facility] [address] [place] [phone] Danna Cardenas PA-C 6405 [place], [place] 294085 documented as of this encounter Visit Diagnoses Not on filedocumented in this encounter Additional Health Concerns Assessment Noted Time PHQ-9 Depression Total Score: 0 06/15/20 19 7:09 PM CDT documented as of this encounter Care Teams Pianos And Organs Salesperson Relationship Specialty Start Date End Date Yung Madrigal MD RETIRED PCP - Orthopaedics Orthopedics 08/26/12 01/20/24 Winston Villatoro OD [facility] [place] [address] [place] [address] PCP - Ophthalmology Ophthalmology 02/11/13 Clara Cornell MD [facility] [place] [address] [place] [address] PCP - General Internal Medicine 02/07/17 09/20/20 Denise Woodson Ra, WHITE WASHER AEROSPACE ENGINEER [address] [place] [address] PCP - General Family Practice 09/21/20 Clara Cornell MD 8675 [place] [address] Assigned PCP 01/17/17 07/16/20 Denise Woodson Ra, WHITE WASHER AEROSPACE ENGINEER [address] [place] [address] Assigned PCP 07/17/20 Usha Simon APRN AEROSPACE ENGINEER [address] [address] Nurse Practitioner Neurological Surgery 01/24/24 Dangelo Salinas MD [address] [address] Neurology 01/27/24 Usha Simon APRN AEROSPACE ENGINEER [address] [address] Assigned Neuroscience Provider 02/06/24 03/07/24 Anastasia Stearns, RN Lead Pipeline Superintendent Division 02/06/24 Germaine Lopez, W Community Health Worker Primary Care - CC 02/18/24 Robin Zepeda MD [address] 469[address] Assigned Neuroscience Provider 03/08/24 05/07/24 Lisa Zambrano MD [address] [place] 516245 Assigned Heart and Vascular Provider 05/08/24 Raul Hoyos MD [address] [place] [address] 845545 Assigned Neuroscience Provider 05/08/24 documented as of this encounter
--- OUTSIDE RECORDS SUMMARY | 2024-05-17 01:29 | XMS_ITS | Encounter Summary ---
Author Organization [place] Address [address] [place] [address]. [place] [address] Care Team Providers Care Fisher Troll Line Name Role Phone Yung Madrigal MD Unavailable Unavailable Winston Villatoro OD Unavailable [phone] Denise Woodson Ra, APRN STORE MERCHANDISER Unavailable +- [phone] Denise Woodson Ra VICE PRESIDENT OF FINANCE STORE MERCHANDISER Primary Care Provid er Usha Simon VICE PRESIDENT OF FINANCE STORE MERCHANDISER Unavailable [phone] Dangelo Salinas MD Unavailable Usha Simon VICE PRESIDENT OF FINANCE STORE MERCHANDISER Unavailable +- [phone] Anastasia Stearns RN Unavailable [phone] Germaine Lopez CHW Unavailable [phone] Robin Zepeda MD Unavailable Lisa Zambrano MD Unavailable +- [phone] Raul Hoyos MD Unavailable Reason for Visit * Reason Onset Date Comments MyChart Communication 06/08/2021 Abdominal pain Encounter Details Date Type Department Care Team (Late st Contact Info) Description 06/08/2021 [facility] [address] [place] [phone] Denise Woodson Ra VICE PRESIDENT OF FINANCE STORE MERCHANDISER [address] [place] [address] MyChart Communication (Abdominal pain) Social [...] Office Visit [facility] [address] [place] [phone] Denise Woodson Ra, VICE PRESIDENT OF FINANCE STORE MERCHANDISER [address] [place], [place] 2208368 06/08/2024 8:30 AM CDT [facility] [address] [place] [phone] Denise Woodson Ra, VICE PRESIDENT OF FINANCE STORE MERCHANDISER [address] [place] [address] 06/26/2024 2:40 PM CDT Office Visit [facility] [address] [facility] [address] [place] [phone] Danna Cardenas PA-C 6405 [place], [place] 754785 documented as of this encounter Visit Diagnoses Not on filedocumented in this encounter Additional Health Concerns Assessment Noted Time PHQ-9 Depression Total Score: 0 01/05/20 9:31 AM CDT documented as of this encounter Care Teams Fisher Troll Line Relationship Specialty Start Date End Date Yung Madrigal MD RETIRED PCP - Orthopaedics Orthopedics 08/26/12 01/20/24 Winston Villatoro OD [facility] [place] [address] [place] [address] PCP - Ophthalmology Ophthalmology 02/11/13 Denise Woodson Ra, VICE PRESIDENT OF FINANCE STORE MERCHANDISER [address] [place] [address] PCP - General Family Practice 09/21/20 Denise Woodson Ra, VICE PRESIDENT OF FINANCE STORE MERCHANDISER [address] [place] [address] Assigned PCP 07/17/20 Usha Simon APRN STORE MERCHANDISER [address] [place] [address] 139235 Nurse Practitioner Neurological Surgery 01/24/24 Dangelo Salinas MD [address] [place] [address] [place] [address] [id number] Neurology 01/27/24 Usha Simon APRN STORE MERCHANDISER [address] [place] [address] Assigned Neuroscience Provider 02/06/24 03/07/24 Anastasia Stearns, RN Lead Lens Grinder And Polisher 02/06/24 Germaine Lopez, W Community Health Worker Primary Care - CC 02/18/24 Robin Zepeda MD [address] 067105 Assigned Neuroscience Provider 03/08/24 05/07/24 Lisa Zambrano MD [address] [place] [address] Assigned Heart and Vascular Provider 05/08/24 Raul Hoyos MD 909 [facility], [place] [address] Assigned Neuroscience Provider 05/08/24 documented as of this encounter
--- OUTSIDE RECORDS SUMMARY | 2024-05-17 01:29 | XMS_ITS | Encounter Summary ---
Author Organization [facility] Address [address] [place] [address] Care Team Providers Care Jack Prizer Name Role Phone Yung Madrigal MD Unavailable Unavailable Winston Villatoro OD Unavailable [phone] Serum, Clara Garland MD Primary Care Provider Serum, Clara Garland MD Unavailable [phone] Denise Woodson Ra CALL WORKER RECREATION SUPERINTENDENT Unavailable + [phone] Denise Woodson Ra CALL WORKER RECREATION SUPERINTENDENT Primary Care Provid er Usha Simon APRN RECREATION SUPERINTENDENT Unavailable +- [phone] Dangelo Salinas MD Unavailable Usha Simon CALL WORKER RECREATION SUPERINTENDENT Unavailable + [phone] Anastasia Stearns RN Unavailable +[phone] Germaine Lopez CHW Unavailable [phone] Robin Zepeda MD Unavailable +[phone] Lisa Zambrano MD Unavailable + [phone] Raul Hoyos MD Unavailable Reason for Visit * Reason Onset Date Comments LAB REQUEST 06/16/2019 Encounter Details Date Type Department Care Team (Late st Contact Info) Description 06/16/2019 [facility] [address] [facility] [address] [place] [address] Clara Cornell MD 8675 [place] [address] LAB REQUEST Social History Tobacco Use Types [...] RN - 06/16/2019 4:17 PM CDT See [employer] message regarding yesterday's appointment. Patient requesting to check TSH and antibodies for pt reported possible yonas's. Pended TSH for provider review. documented in this encounter Plan of Treatment Upcoming Encounters Date Type Department Care Team (Late st Contact Info) Description 05/26/2024 8:30 AM CDT Office Visit [facility] [address] [place] [phone] Denise Woodson Ra, BARRERA RECREATION SUPERINTENDENT [address] [place] [address] 06/08/2024 8:30 AM CDT [facility] [address] [place] [phone] Denise Woodson Ra, BARRERA RECREATION SUPERINTENDENT [address] [place], [place] 5533768 06/26/2024 2:40 PM CDT Office Visit [facility] [address] [facility] [address] [place] [phone] Danna Cardenas PA-C 6405 [place] [address] documented as of this encounter Results * Follicle stimulating hormone (06/22/2019 3:36 PM CDT) FSH 9.5 IU/L 06/23/2019 2:32 PM CDT [facility] Comment: FSH Reference Range Female: Follicular ?2.5-10.2 ?Mid-cycle ? 3.4-33.4 ?Luteal ?1.5-9.1 ?Postmenopausal ??23.0-116.3 Blood specimen (specimen) 06/22/2019 3:36 PM CDT 06/22/2019 3:37 PM CDT Clara Cornell MD LAB - BLOOD ORD ERABLES [facility] [address] [place] [address] * TSH with free T4 reflex FUTURE anytime (06/22/2019 3:36 PM CDT) TSH 3.30 0.40 - 4.00 mU/L 06/23/2019 3:12 PM CDT [facility] Blood specimen (specimen) 06/22/2019 3:36 PM CDT 06/22/2019 3:37 PM CDT Clara Cornell MD LAB - BLOOD ORD ERABLES [facility] [address] [place] [address] documented in this encounter Visit Diagnoses Diagnosis Anti-TPO antibodies present- Primary Other and unspecified nonspecific immunological findings Excessive sweating Generalized hyperhidrosis documented in this encounter Additional Health Concerns Assessment Noted Time PHQ-9 Depression Total Score: 0 06/15/20 19 7:09 PM CDT documented as of this encounter Care Teams Jack Prizer Relationship Specialty Start Date End Date Yung Madrigal MD RETIRED PCP - Orthopaedics Orthopedics 08/26/12 01/20/24 Winston Villatoro OD [facility] [place] [address] [place] [address] PCP - Ophthalmology Ophthalmology 02/11/13 Clara Cornell MD [facility] [place] [address] [place] [address] PCP - General Internal Medicine 02/07/17 09/20/20 Denise Woodson Ra, APRN RECREATION SUPERINTENDENT [address] [place] [address] PCP - General Family Practice 09/21/20 Clara Cornell MD 8675 [place], [place] 08[address] Assigned PCP 01/17/17 07/16/20 Denise Woodson Ra, APRN RECREATION SUPERINTENDENT [address] [place] [address] Assigned PCP 07/17/20 Usha Simon APRN RECREATION SUPERINTENDENT 909 [facility] CH0561DF [place] [address] Nurse Practitioner Neurological Surgery 01/24/24 Dangelo Salinas MD [address] [address] Neurology 01/27/24 Usha Simon APRN RECREATION SUPERINTENDENT [address] [address] Assigned Neuroscience Provider 02/06/24 03/07/24 Anastasia Stearns, RN Lead Volunteer Assistant 02/06/24 Germaine Lopez, W Community Health Worker Primary Care - CC 02/18/24 Robin Zepeda MD [address] [address] Assigned Neuroscience Provider 03/08/24 05/07/24 Lisa Zambrano MD [address] [place] [address] Assigned Heart and Vascular Provider 05/08/24 Raul Hoyos MD [address] 826895 Assigned Neuroscience Provider 05/08/24 documented as of this encounter
--- OUTSIDE RECORDS SUMMARY | 2024-05-17 01:29 | XMS_ITS | Encounter Summary ---
Author Organization [facility] Address [address] [place] [address] Care Team Providers Care Machine Lead Burner Name Role Phone Timmy Perez MD Unavailable Unavailable Yung Madrigal MD Unavailable Unavailable Winston Villatoro OD Unavailable [phone] Apple Sykes MD Primary Care Provider Unavailab Westley Vera MD Unavailable [phone] Alessandra Cabrales APRN NECKTIE TURNER Primary Car e Provider Serum, Clara Garland MD Primary Care Provider Serum, Clara Garland MD Unavailable +[phone] Serum, Clara Garland MD Unavailable +[phone] Denise Woodson Ra, APRN NECKTIE TURNER Unavailable + [phone] Denise Woodson Ra, APRN NECKTIE TURNER Primary Care Provid er Usha Simon APRN NECKTIE TURNER Unavailable + [phone] Dangelo Salinas MD Unavailable Usha Simon APRN NECKTIE TURNER Unavailable + [phone] Anastasia Stearns RN Unavailable +[phone] Germaine Lopez CHW Unavailable +[phone] Robin Zepeda MD Unavailable [phone] Lisa Zambrano MD Unavailable + [phone] Raul Hoyos MD Unavailable Encounter Details Date Type Department Care Team (Late st Contact Info) Description 05/26/2013 MyC Medical Advice [facility] [place] [facility] [address] [place] [phone] Yung Madrigal MD RETIRED Social History Tobacco [...] AM CDT [facility] [address] [place] [phone] Denise Woodson Ra, INSEAM TRIMMER NECKTIE TURNER [address] [place], [place] 8954968 06/08/2024 8:30 AM CDT [facility] [address] [place] [phone] Denise Woodson Ra, INSEAM TRIMMER NECKTIE TURNER [address] [place], [place] 55478[address] 06/26/2024 2:40 PM CDT Office Visit [facility] [address] [facility] [address] [place] [phone] Danna Cardenas PA-C 6405 [place], [place] 099465 documented as of this encounter Visit Diagnoses Not on filedocumented in this encounter Care Teams Machine Lead Burner Relationship Specialty Start Date End Date Timmy Perez MD PCP - Obstetrics/Gynecology 03/02/08 08/07/15 Yung Madrigal MD RETIRED PCP - Orthopaedics Orthopedics 08/26/12 01/20/24 Winston Villatoro OD [facility] [place] [address] [place] [address] PCP - Ophthalmology Ophthalmology 02/11/13 Apple Sykes MD [facility] [place] [address] [place] [address] PCP - General Family Practice 05/04/13 10/25/16 Westley Bates MD XXX RETIRED [place] [address] [place] [address] PCP - ENT Otolaryngology 05/14/13 07/28/18 [facility] NECKTIE TURNER [address] [facility] [place] [address] PCP - General Nurse Practitioner 10/26/16 02/06/17 Clara Cornell MD [address] [facility] [place] [address] PCP - General Internal Medicine 02/07/17 09/20/20 Clara Cornell MD [address] [place] [address] PCP - Assigned PCP 01/17/17 11/18/18 Denise Woodson Ra, INSEAM TRIMMER NECKTIE TURNER [address] [place] [address] PCP - General Family Practice 09/21/20 Clara Cornell MD 8675 [place] [address] Assigned PCP 01/17/17 07/16/20 Denise Woodson Ra, APRN NECKTIE TURNER [address] [place] [address] Assigned PCP 07/17/20 Usha Simon APRN NECKTIE TURNER [address] [address] Nurse Practitioner Neurological Surgery 01/24/24 Dangelo Salinas MD [address] [place] [address] Neurology 01/27/24 Usha Simon APRN NECKTIE TURNER [address] [address] Assigned Neuroscience Provider 02/06/24 03/07/24 Anastasia Stearns, RN Lead Electric Motor Assembler And Tester 02/06/24 Germaine Lopez, W Community Health Worker Primary Care - CC 02/18/24 Robin Zepeda MD [address] [address] Assigned Neuroscience Provider 03/08/24 05/07/24 Lisa Zambrano MD [address] [place] [address] Assigned Heart and Vascular Provider 05/08/24 Raul Hoyos MD 909 [facility] AS[address]40SE [place] [address] Assigned Neuroscience Provider 05/08/24 documented as of this encounter
--- OUTSIDE RECORDS SUMMARY | 2024-05-17 01:29 | XMS_ITS | Encounter Summary ---
Author Organization [place] Address [address] [place] [address] Care Team Providers Care Chief Embalmer Name Role Phone Timmy Perez MD Unavailable Unavailable Yung Madrigal MD Unavailable Unavailable Winston Villatoro OD Unavailable [phone] Apple Sykes MD Primary Care Provider Unavailab Westley Vera MD Unavailable [phone] Alessandra Cabrales APRN ELECTRICIAN DECK Primary Car e Provider Serum, Clara Garland MD Primary Care Provider Serum, Clara Garland MD Unavailable Serum, Clara Garland MD Unavailable Denise Woodson Ra, APRN ELECTRICIAN DECK Unavailable + [phone] Denise Woodson Ra, APRN ELECTRICIAN DECK Primary Care Provid er Usha Simon APRN ELECTRICIAN DECK Unavailable + [phone] Dangelo Salinas MD Unavailable Usha Simon APRN ELECTRICIAN DECK Unavailable + [phone] Anastasia Stearns RN Unavailable +[phone] Germaine Lopez CHW Unavailable [phone] Robin Zepeda MD Unavailable [phone] Lisa Zambrano MD Unavailable + [phone] Raul Hoyos MD Unavailable [phone] Encounter Details Date Type Department Care Team (Late st Contact Info) Description 05/19/[address] [facility] [place] Orthopedics [address] [place] [phone] Yung Madrigal MD RETIRED Social History Tobacco [...] CDT [facility] [address] [place] [phone] Denise Woodson Ra, DRAWER IN ELECTRICIAN DECK [address] [place], [place] 31740[address] 06/08/2024 8:30 AM CDT [facility] [address] [place] [phone] Denise Woodson Ra, DRAWER IN ELECTRICIAN DECK [address] [place], [place] 34478[address] 06/26/2024 2:40 PM CDT Office Visit [facility] [address] [facility] [address] [place] [phone] Danna Cardenas PA-C 6405 [place], [place] 228395 documented as of this encounter Visit Diagnoses Not on filedocumented in this encounter Care Teams Chief Embalmer Relationship Specialty Start Date End Date Timmy Perez MD PCP - Obstetrics/Gynecology 03/02/08 08/07/15 Yung Madrigal MD RETIRED PCP - Orthopaedics Orthopedics 08/26/12 01/20/24 Winston Villatoro OD [facility] [place] [address] [place] [address] PCP - Ophthalmology Ophthalmology 02/11/13 Apple Sykes MD [facility] [place] [address] [place] [address] PCP - General Family Practice 05/04/13 10/25/16 Westley Bates MD XXX RETIRED [place] [address] [place] [address] PCP - ENT Otolaryngology 05/14/13 07/28/18 [facility] ELECTRICIAN DECK [address] [facility] [place] [address] PCP - General Nurse Practitioner 10/26/16 02/06/17 Clara Cornell MD [address] [facility] [place] [address] PCP - General Internal Medicine 02/07/17 09/20/20 Clara Cornell MD [address] [place] [address] PCP - Assigned PCP 01/17/17 11/18/18 Denise Woodson Ra, DRAWER IN ELECTRICIAN DECK [address] [place] [address] PCP - General Family Practice 09/21/20 Clara Cornell MD 8675 [place] [address] Assigned PCP 01/17/17 07/16/20 Denise Woodson Ra, APRN ELECTRICIAN DECK [address] [place] [address] Assigned PCP 07/17/20 Usha Simon APRN ELECTRICIAN DECK [address] [address] Nurse Practitioner Neurological Surgery 01/24/24 Dangelo Salinas MD [address] [place] [address] Neurology 01/27/24 Usha Simon APRN ELECTRICIAN DECK [address] [address] Assigned Neuroscience Provider 02/06/24 03/07/24 Anastasia Stearns, RN Lead Hot Wire Glass Tube Cutter 02/06/24 Germaine Lopez, W Community Health Worker Primary Care - CC 02/18/24 Robin Zepeda MD [address] [address] Assigned Neuroscience Provider 03/08/24 05/07/24 Lisa Zambrano MD [address] [place] [address] Assigned Heart and Vascular Provider 05/08/24 Raul Hoyos MD 909 [facility] HQ6020RE [place] [address] Assigned Neuroscience Provider 05/08/24 documented as of this encounter
== END 2024-05-14 20:03 | disposition home or self-care (01) ==
LOC: AMB 05-17 01:17
PROVIDERS: Visit Provider Emergency Medicine Emergency Medical Services
DX: R07.89 Other chest pain (principal); R42 Dizziness and giddiness
CPT/HCPCS: A0425; A0427

== ENCOUNTER 2024-07-12 19:42 | Emergency (ER) | payer OTHER, SELFPAY ==
[2024-07-12] VITALS (15 sets, daily range): BP systolic 146–175; BP diastolic 80–140; PULSE 76–103; RESP 16; TEMP 36.8; O2SAT 96–100; BMI 32.7
--- NOTE | 2024-07-12 20:03 | CRLHL7_ITS ---
For Patients: As a result of the Century Cures Act, medical imaging exams and procedure reports are released immediately into your electronic medical record. You may view this report before your referring provider. If you have questions, please contact your health care provider. INDICATION: Right arm tingling. TECHNIQUE: Noncontrast CT images of the brain. Comparison CT brain 05/07/2024. FINDINGS: The ventricles and sulci are within normal limits for patient age. No mass effect or midline shift. The pollack-white differentiation is maintained. No acute intracranial hemorrhage or pathologic extra-axial fluid collection. The globes are symmetric. The calvarium is intact. Mild ethmoid and left sphenoid sinus mucosal thickening. Mastoid air cells are clear. IMPRESSION: No intracranial hemorrhage or mass effect. Please note that all CT scans at this facility use dose modulation, iterative reconstruction, and/or weight-based dosing when appropriate to reduce radiation dose to as low as reasonably achievable. Dictated by Jeevan Snow MD @ 07/12/2024 8:30:07 PM (Electronically Signed)
--- NOTE | 2024-07-12 20:05 | CRLHL7_ITS ---
For Patients: As a result of the Century Cures Act, medical imaging exams and procedure reports are released immediately into your electronic medical record. You may view this report before your referring provider. If you have questions, please contact your health care provider. INDICATION: Right arm, face, and leg tingling. TECHNIQUE: CT angiography of the head and neck following intravenous contrast. COMPARISON: CTA head and neck 05/07/2024. FINDINGS: CTA neck: The innominate and subclavian arteries are widely patent. The common carotid arteries are widely patent. The internal carotid arteries are widely patent. The vertebral arteries are codominant and widely patent. No arterial dissection. Pulmonary emphysema. CT head: The internal carotid, middle cerebral, and anterior cerebral arteries are widely patent. The vertebral, basilar, and posterior cerebral arteries are widely patent. No intracranial aneurysm or high-flow vascular malformation. IMPRESSION: 1. Widely patent cervical and intracranial vasculature. 2. Pulmonary emphysema. Please note that all CT scans at this facility use dose modulation, iterative reconstruction, and/or weight-based dosing when appropriate to reduce radiation dose to as low as reasonably achievable. Dictated by Jeevan Snow MD @ 07/12/2024 8:35:42 PM (Electronically Signed)
--- NOTE | 2024-07-12 20:10 | ED_ITS ---
HPI - General Adult General Chief complaint: Weakness Stated complaint: tingling R arm/leg/face Time Seen by Provider: 07/12/24 20:05 History of Present Illness HPI narrative: 48 yo F with h/o anx/dep, chronic neck pain, EDS, fibromyalgia as well as a very complex neurologic history. 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 She had a cerebral angiogram at [facility] with Dr. Gutierrez on 01/09/2024. Complicated by strokes. MRI did show multiple acute ischemic infarcts in the frontal lobes, parietal lobes and left supra marginal gyrus. CT angio showed an incidental finding of fibromuscular dysplasia and a non occlusive dissection. After complications of the procedure at [place] she and her family switched her neurology care to the [facility] [place] system. They have been following with neurologist at [facility] and at the [facility]. Records from her [place] chart are not available to me I am able to see some limited records when I review the [facility] version of [employer] through [employer] link. It looks like she sees a neurosurgeon through [facility], Dr. Farley. She has been having some trouble with chest pains and tachycardias lately. She has been following with Cardiology through [email or web address]. She was set up for an outpatient Zio patch and is supposed to have a coronary is CT angiogram coming up. It is unclear to the patient were to her if they have a formal diagnosis for her tachycardias or her chest pain yet. She is not having any chest pain today. She did have some tachycardia earlier. She reports to me that she center Zio patch back in the mail yesterday. History from the patient and her combined is that she has had custom chronic weakness of her right arm and right animal surgeon ever since for strokes last spring. This does wax and wane but has never been completely normal. She has also had trouble with seizures and is on Keppra for that. Both the patient and her expressed frustration that she keeps having relapses of her neuro symptoms. Just when she seems like she is getting back to normal she has a back slide. It sounds like she has had follow-up MRIs for recurrent neuro symptoms over the past couple of months which apparently have not shown any new strokes. She is currently on aspirin but no other anticoagulant. She is on Keppra. She has been having trouble with chest pains and palpitations lately and is in the process of workup with the medical claims examiner through [place]. Today she has noted new numbness affecting the right side of her body especially her arm and leg but also her face. This evening at about 7 she also noted when she was trying to swallow that she seemed to have some dysphagia and just could not swallow her dinner. She also felt like the way right-sided weakness got abruptly worse at about 7:00 p.m.. She asked her to bring her in. He did not notice any obvious new facial droop. No definite new slurred speech. He did notice that she seemed to be a little bit more slow to respond to questions. She does not have a headache. No neck pain. No recent falls. No fever. No cough. No nausea vomiting. No abdominal pain. No current chest pain. Most recent palpitations occurred earlier today. Related Data Home Medications ?Medication ?Instructions ?Recorded ?Confirmed fluticasone furoate 200 1 inh inhalation DAILY 07/03/22 07/12/24 mcg-vilanterol 25 mcg/dose inhalation powder (Breo Ellipta) albuterol sulfate 90 mcg/actuation 2 puff inhalation Q6H PRN 08/01/22 07/12/24 aerosol inhaler magnesium 250 mg tablet 250 mg PO HS 08/02/22 07/12/24 trazodone 100 mg tablet 100 mg PO HS sleep 08/02/22 07/12/24 cetirizine 10 mg tablet (Zyrtec) 10 mg PO DAILY 10/08/23 07/12/24 lorazepam 1 mg tablet 0.5 - 1 mg PO DAILY PRN dizziness 05/07/24 07/12/24 levetiracetam 750 mg tablet 375 mg PO BID 05/08/24 07/12/24 (Keppra) Previous Rx's ?Medication ?Instructions ?Recorded ketorolac 10 mg tablet 10 mg PO Q6H PRN pain 5 days #20 07/03/22 tabs aspirin 81 mg tablet,delayed 81 mg PO DAILY #30 tabs 05/08/24 release Allergies Allergy/AdvReac Type Severity Reaction Status Date / Time bupropion Allergy Intermediate Diarrhea Verified 05/14/24 10:14 codeine Allergy Intermediate epigastric Verified 05/14/24 10:14 pain erythromycin base Allergy Intermediate stomach Verified 05/14/24 10:14 upset, diarrhea morphine AdvReac Verified 07/12/24 19:54 PFSH PFSH Medical History Headache ?R51.9 - Headache, unspecified (ICD-10) 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, unspecified (ICD-10) Mild persistent asthma (09/27/22) ?J45.30 - Mild persistent asthma, uncomplicated (ICD-10) Asthma ?J45.909 - Unspecified asthma, uncomplicated (ICD-10) History of blood transfusion (1994) ?Z92.89 - Personal history of other medical treatment (ICD-10) History of vitamin D deficiency ?Z86.39 - Personal history of other endocrine, nutritional and metabolic disease (ICD-10) Anxiety and depression ?F41.9 - Anxiety disorder, unspecified (ICD-10) ?F32.A - Depression, unspecified (ICD-10) Fibromyalgia ?M79.7 - Fibromyalgia (ICD-10) Mild persistent asthma ?J45.30 - Mild persistent asthma, uncomplicated (ICD-10) H/O bronchopulmonary dysplasia ?Z87.09 - Personal history of other diseases of the respiratory system (ICD- 10) Stage 1 chronic kidney disease (11/16/20) ?N18.1 - Chronic kidney disease, stage 1 (ICD-10) Simple renal cyst (10/2020) ?N28.1 - Cyst of kidney, acquired (ICD-10) Asthma ?J45.909 - Unspecified asthma, uncomplicated (ICD-10) Surgical History History of laparoscopy ?Z98.890 - Other specified postprocedural states (ICD-10) S/P dilation and curettage (1994) ?Z98.890 - Other specified postprocedural states (ICD-10) H/O tubal ligation ?Z98.51 - Tubal ligation status (ICD-10) Status post excision of lipoma (2011) ?Z98.890 - Other specified postprocedural states (ICD-10) ?Z86.018 - Personal history of other benign neoplasm (ICD-10) History of medial meniscus repair of left knee (08/04/13) ?Z98.890 - Other specified postprocedural states (ICD-10) History of laparoscopic cholecystectomy (09/29/20) ?Z90.49 - Acquired absence of other specified parts of digestive tract (ICD- 10) History of hysterectomy for benign disease (2005) ?Z90.710 - Acquired absence of both cervix and uterus (ICD-10) History of catheter-based closure of atrial septal defect (06/2006) ?Z87.74 - Personal history of (corrected) congenital malformations of heart and circulatory system (ICD-10) Family History Maternal Grandmother Stroke Paternal Grandfather Diabetes Daughter Depression Social History Narrative: She recently moved to [place]. 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 She has a college education She exercises 5 days a week with walking in treadmill 2M She does not smoke She does not drink alcohol or use recreational drugs What is your current living situation?: I presently have a place to live Problems where you live: no known problems Problems where you live details: na In the past 12 months, utilities in danger of being shut off: no In past 12 months, lack of transportation kept you from medical appts, meetings, work, or getting things needed for daily living: no In the past 12 mos, have been you worried that your food would run out before you had money to buy more?: never true In the past 12 mos, the food you bought just didn't last and you didn't have money to buy more?: never true Highest level of school completed/degree received: Associate degree: occupational, technical, vocational program Smoking Status: Never smoker Do you use any of these nicotine containing products: None Second hand tobacco smoke exposure: No How often do you have a drink containing alcohol: never How often do you have six or more drinks on one occasion: Never AUDIT-C Alcohol total score: 0 Non-prescribed substance use: denies use Caffeine: Yes How often does anyone, including family, friends and others, physically hurt you : never How often does anyone, including family, friends and others, insult or talk down to you: never How often does anyone, including family, friends and others, threaten you with harm: never How often does anyone, including family, friends and others, scream or curse at you: never Little interest or pleasure in doing things: not at all Feeling down, depressed, or hopeless: not at all Are you using contraception or practicing any form of control: Yes (hysterectomy) service: No Exam Narrative: Exam Narrative: Constitutional: Appears well-developed and well-nourished. Awake, but eyes are closed. Seems a bit slow to respond at times. Other times seems more alert. Sometimes seems to have fluttering of her eyelids but this is not seemed consistent with seizure. HENT: Head: Atraumatic. Nose: Nose normal. Mouth/Throat: Oral mucosa is clear and moist. no trismus. Pharynx normal. Tonsils symmetric. No tonsillar enlargement, erythema, or exudate. Tongue protrudes in the midline. Palate elevates symmetrically. Eyes: Conjunctivae normal. EOM normal. Pupils equal, round, and reactive to light. No scleral icterus. Neck: Normal range of motion. Neck supple. No tracheal deviation present. Cardiovascular: Normal rate, regular rhythm. No gallop. No friction rub. No murmur heard. Symmetric radial artery pulses Pulmonary/Chest: Effort normal. No stridor. No respiratory distress. No wheezes. No rales. No rhonchi . No tenderness. Abdominal: Soft. Bowel sounds normal. No distension. No mass. No tenderness. No rebound. No guarding. No CVA tenderness. Musculoskeletal: RUE: Normal range of motion. No tenderness. No deformity LUE: Normal range of motion. No tenderness. No deformity RLE: Normal range of motion. No edema. No tenderness. No deformity LLE: Normal range of motion. No edema. No tenderness. No deformity Neurological: Eyes are closed that time seems to be slow to respond to questions. Other times she seems fairly alert and conversant. oriented x3. GCS 15. Memory normal. Speech fluent. Cognition normal. Cranial Nerves intact II-XII except I did not formally test gag or visual acuity. EOMI. Palate elevates symmetrically and tongue protrudes in the midline. Strength: 5/5 strength on the left deltoid, biceps , triceps, animal surgeon, thumb extension. 4+/5 strength on the right deltoid/bicep s. 5/5 triceps. Research Assistant Professor strength 4+/5. She does have some pronator drift of the right upper extremity. 5/5 hip flexors (L3) on the right and le ft 5/5 quadriceps (L4) on the right and lef t 5/5 tibialis anterior on the right and l eft 5/5 EHL (L5) on the right and left 5/5 gastrocnemius (S1) on the right and left 5/5 hamstring on the right and left Sensation intact to light touch in both upper extremities (C4-T1) Sensation intact to light touch in Both lower extremities (L4-S1). Finger to nose and coordination normal. She was able to stand and pivot at the bedside back and forth a CT scan. Did not assess gait. Skin: Skin is warm and dry. No rash noted. No pallor. Normal capillary refill. Psychiatric: Normal mood. Normal affect. Const: Vital Signs, click to edit/add: Vital Signs - 24 hr 07/12/24 19:47 Temperature 98.3 F Pulse Rate [Pulse Oximeter] 103 H Respiratory Rate 16 Blood Pressure [Ri ght Upper Arm] 174/140 H Pulse Oximetry 98 Oxygen Delivery Me thod Room Air Course Vital Signs Vital signs: Initial Vital Signs Temperature 98.3 F 07/12/24 19:47 Temperature Source Temporal Artery Scan 07/12/24 19:47 Pulse Rate 103 H 07/12/24 19:47 Respiratory Rate 16 07/12/24 19:47 Blood Pressure 174/140 H 07/12/24 19:47 Blood Pressure Mean 151 H 07/12/24 19:47 Blood Pressure Position Sitting 07/12/24 19:47 Pulse Oximetry 98 07/12/24 19:47 Oxygen Delivery Method Room Air 07/12/24 19:47 Vital Signs Temperature 98.3 F 07/12/24 19:47 Pulse Rate 103 H 07/12/24 19:47 Respiratory Rate 16 07/12/24 19:47 Blood Pressure 174/140 H 07/12/24 19:47 Pulse Oximetry 98 07/12/24 19:47 Oxygen Delivery Method Room Air 07/12/24 19:47 Temperature 98.3 F 07/12/24 19:47 Pulse Rate 103 H 07/12/24 19:47 Respiratory Rate 16 07/12/24 19:47 Blood Pressure 174/140 H 07/12/24 19:47 Pulse Oximetry 98 07/12/24 19:47 Oxygen Delivery Method Room Air 07/12/24 19:47 Medical Decision Making MDM Narrative Medical decision making narrative: 48-year-old female with a complex neurologic history including previous dural sinus fistula with infarcts triggered after cerebral angiogram left with some chronic waxing and waning neurologic symptoms. She presents to the ER [facility] with new neurologic symptoms especially new numbness affecting the right side of her body also some acute on chronic weakness of the right arm and right leg. Concern here is for possible recurrent acute ischemic infarct. Stroke protocol is activated. Patient is sent for stat noncontrast head CT and CT angio head and neck. These imaging studies are normal. Although the patient noticed acute worsening in swallowing around 7 she has actually been some acute right-sided numbness earlier today and having some superimposed generalized weakness for about a week. Exact time of onset is not clear. Also severity of these new symptoms compared to her chronic deficits would not warrant the risk of IV thrombolysis. Discussed with Stroke Neurology from Dr. Torres through [facility] and she agrees. Ultimately, however patient and her family are requesting that we consult with Neurology through [place] since she gets all of her healthcare through the [place] system now. Discussed with Dr. Alcaraz, Neurology, through [place]. He agrees that thrombolysis would not be indicated with this timing in the symptoms. However we do think MRI of the patient's brain is necessary to look for possible new strokes. MRI is not available here in [facility] since it is the weekend. In discussion with neurology, therefore transfer to an MR capable hospital would be beneficial for the patient. We discussed with Neurology whether not patient would simply be best to transfer for admission and inpatient MRI or whether not the patient go ED to ED for any ED based MRI. Ultimately, the question is, if the MRI is normal with the patient be able to discharge home or will she need to be admitted anyway. Ultimately the patient says she is able to walk. She is here with her supportive family member. I feel like there is a chance she could discharge home with normal imaging. Therefore we will due to the ED to ED transfer. Subsequently discussed with the Emergency Department physician, Dr. Ferrara, from [facility]. He accepts the patient in transfer. Laboratory workup is reassuring. Electrolytes and blood counts normal. EKG shows no arrhythmia or active ischemia but does show nonspecific changes. Initial i-STAT based troponin is normal. Patient and her are agreeable to the plan for transfer for MRI tonight. They agree with the plan to transfer to [facility]. She needs her evening dose of Keppra. will give her her normal home med. Lab Data Labs: Lab Results 07/12/24 07/12/24 Range/Units 20:10 20:19 WBC 9.61 (4.50-11.00) K/uL RBC 4.75 (4.00-5.20) m/uL Hgb 14.5 (12.0-16.0) gm/dL Hct 43.4 (33.0-51.0) % MCV 91 (80-100) fL MCH 31 (26-34) pg MCHC 33 (32-36) gm/dL RDW Coeff of Bárbara 12.1 (11.5-15.5) % Plt Count 192 (140-440) K/uL Neut % (Auto) 55.5 (42.0-72.0) % Lymph % (Auto) 30.5 (20-44) % Rains % (Auto) 7.0 (0.0-11.0) % Eos % (Auto) 6.7 (0.0-7.0) % Baso % (Auto) 0.2 (0.0-3.0) % Neut # (Auto) 5.34 (1.7-7.0) K/uL Lymph # (Auto) 2.93 H (0.90-2.90) K/uL Rains # (Auto) 0.70 (0.00-0.90) K/UL Eos # (Auto) 0.64 H (0.00-0.50) K/uL Baso # (Auto) 0.02 (0.00-0.30) K/uL Abs Immat Gran (auto) 0.01 (0.00-0.30) K/uL Imm/Tot Granulo (auto) 0.1 % INR 0.74 L (0.91-1.10) Sodium 139 (135-149) mmol/L Potassium 3.7 (3.6-5.1) mmol/L Chloride 100 (96-114) mmol/L Carbon Dioxide 28 (20-32) mmol/L Anion Gap 11 (7-15) mEq/L BUN 16 (5-24) mg/dL Creatinine 0.7 (0.5-1.5) mg/dL Estimated Creat Clear 100.22 Estimated GFR 107 ml/min Glucose 149 H (60-115) mg/dL Calcium 9.6 (8.4-10.6) mg/dL Imaging Data CT scan - head: Attestation: I have reviewed the pertinent imaging results. My impression: Possible edema or encephalomalacia affecting the left cerebellum. No acute hemorrhage by Dr. Beaulieu's read. Radiologist's impression: IMPRESSION: No intracranial hemorrhage or mass effect. CTA head and neck: Attestation: I have reviewed the pertinent imaging results. Radiologist's impression: CTA head and neck 05/07/2024. FINDINGS: CTA neck: The innominate and subclavian arteries are widely patent. The common carotid arteries are widely patent. The internal carotid arteries are widely patent. The vertebral arteries are codominant and widely patent. No arterial dissection. Pulmonary emphysema. CT head: The internal carotid, middle cerebral, and anterior cerebral arteries are widely patent. The vertebral, basilar, and posterior cerebral arteries are widely patent. No intracranial aneurysm or high-flow vascular malformation. IMPRESSION: 1. Widely patent cervical and intracranial vasculature. 2. Pulmonary emphysema. ECG Data Attestation: I personally reviewed and interpreted this ECG as follows: Interpretation: Normal sinus rhythm Rate: 88 DC: 166 QRS axis: Rightward axis deviation. No pathologic Q-waves. ST segment/T wave: No ST segment elevation or depression. Nonspecific T-wave changes in V4-V6. QTc: 450 Discharge Plan Discharge Clinical Impression: Numbness on right side, Trouble swallowing, RUE weakness Prescriptions: No Action cetirizine [Zyrtec] 10 mg tablet 10 mg PO DAILY albuterol sulfate 90 mcg/actuation HFA aerosol inhaler 2 puff inhalation Q6H PRN magnesium 250 mg tablet 250 mg PO HS fluticasone furoate-vilanterol [Breo Ellipta] 200-25 mcg/dose blister with device 1 inh INHALATION DAILY ketorolac 10 mg tablet 10 mg PO Q6H PRN (Reason: pain) 5 Days Qty: 20 0RF trazodone 100 mg tablet 100 mg PO HS lorazepam 1 mg tablet 0.5 - 1 mg PO DAILY PRN (Reason: dizziness) levetiracetam [Keppra] 750 mg tablet 375 mg PO BID aspirin 81 mg Tablet,Delayed Release (Dr/Ec) 81 mg PO DAILY Qty: 30 0RF Follow Up/Referrals: Provider,Not a Local [Primary Care Provider] -
[2024-07-12 20:24] LABS: Basophils Absolute Auto 0.02 K/uL (0.00-0.30); Basophils Percent Auto 0.2 % (0.0-3.0); Eosinophils Absolute Auto 0.64 K/uL (0.00-0.50); Eosinophils Percent Auto 6.7 % (0.0-7.0); Hematocrit 43.4 % (33.0-51.0); Hemoglobin* 14.5 gm/dL (12.0-16.0); Immature Granulocytes Abs Auto 0.01 K/uL (0.00-0.30); Immature Granulocytes Pct Auto 0.1 %; Lymphocytes Absolute Auto 2.93 K/uL (0.90-2.90); Lymphocytes Percent Auto 30.5 % (20-44); Mean Corpuscular HGB Conc 33 gm/dL (32-36); Mean Corpuscular Hemoglobin 31 pg (26-34); Mean Corpuscular Volume 91 fL (80-100); Neutrophils Absolute Auto 5.34 K/uL (1.7-7.0); Neutrophils Percent Auto 55.5 % (42.0-72.0); Platelet Count* 192 K/uL (140-440); RDW Coefficient of Variation % 12.1 % (11.5-15.5); Red Blood Count 4.75 m/uL (4.00-5.20); White Blood Count* 9.61 K/uL (4.50-11.00)
[2024-07-12 20:26] LABS: Slide Review Reflex No
[2024-07-12 20:46] LABS: Chloride* 100 mmol/L (96-114); Potassium* 3.7 mmol/L (3.6-5.1); Sodium* 139 mmol/L (135-149)
[2024-07-12 20:49] LABS: Anion Gap 11 mEq/L (7-15); Blood Urea Nitrogen* 16 mg/dL (5-24); Carbon Dioxide* 28 mmol/L (20-32); Creatinine* 0.7 mg/dL (0.5-1.5); Est. Creatinine Clearance* 100.22; Estimated Glomerular Filt Rate 107 ml/min
[2024-07-12 20:50] LABS: Calcium* 9.6 mg/dL (8.4-10.6); Glucose* 149 mg/dL (60-115)
[2024-07-12] MEDS: 0.9 % SODIUM CHLORIDE 500 ML 500 ML IV (20:50)
[2024-07-12 20:51] LABS: INR 0.74 (0.91-1.10); Prothrombin Time 10.8 Seconds
[2024-07-12] MEDS: ACETAMINOPHEN 500 MG TABLET 1000 MG PO (21:25)
== END 2024-07-12 21:45 | disposition other institution (70) ==
PROVIDERS: Emergency Provider Emergency Medicine; PCP Nurse Practitioner
DX: R20.0 Anesthesia of skin (principal); R13.10 Dysphagia, unspecified; R53.1 Weakness
CPT/HCPCS: 36415; 70450; 70496; 70498; 80048; 85025; 85610; 99284; 99291; A9270; J7030; Q9967

== ENCOUNTER 2024-07-12 21:40 | Outpatient (CLI) | payer OTHER, SELFPAY ==
--- OUTSIDE RECORDS SUMMARY | 2024-07-16 13:49 | XMS_ITS | Referral Summary ---
Author Organization [facility] Address [address] [place] [address] Care Team Providers Care Sales Office Coordinator Name Role Phone Darius Shaw M.D. Primary Care Provider Source Comments Patient records contain information from all sites at [facility]. For routine questions regarding patient records, call [phone] during business hours, M-F 8:00 AM - 5:00 PM Central Time. Record requests for emergency care only can be directed to [phone] at any time.[facility] Allergies Active Allergy Reactions Criticality Noted Date Comments Codeine GI intolerance High 09/23/2022 Erythromycin GI intolerance 06/01/2011 Erythromycin Base GI intolerance 02/03/2006 Mold Other (see comments) 08/22/2012 Pollen Extracts Other (see comments) 08/22/2012 Medications * This document contains information received from the source organization and may not represent a complete record from that organization. fluticasone (FLONASE) 50 mcg/actuation nasal spray Administer 2 sprays into each nostril 2 (two) times a day. 54 g 3 8 Active magnesium amino acid chelate 100 mg tablet Take 100 mg by mouth at bedtime. Active buPROPion (Wellbutrin SR) 100 mg 12 hr tablet Take 1 tablet (100 mg total) by mouth 2 (two) times a day. 60 tablet 11 3 Active albuterol 90 mcg/actuation inhaler Inhale 2 puffs every 4 (four) hours as needed for wheezing. 8 g 11 3 Active Breo Ellipta 200-25 mcg/dose inhaler Inhale 1 puff daily. 60 each 3 4 Active traZODone (DESYREL) 100 mg tablet Take 1 tablet (100 mg total) by mouth at bedtime. 90 tablet 3 4 Active Active Problems Problem Noted Date Diagnosed [...] week 01/10/2023 How often do you attend shinto or yazidism serv ices? Never 01/10/2023 Do [...] Answer Date Recorded PHQ-2 Score 3 01/10/2023 [facility] of Occupat ional [facility] - Occupational Stress Questionnaire Answer Date [...] have received? Associate degree: academic program 01/10/2023 Comments No Sex and Gender Information Value Date Recorded Sex Assigned at Female 02/11/2018 8:36 AM CDT Legal Sex Female 8:24 AM OPERATING THEATRE TECHNICIAN Gender Identity Female 02/11/2018 8:36 AM CDT [...] on file Medical Devices Implanted Type Area Sand Carrier Device Identifier Shelf Expiration Date Model / Serial / Lot Mesh Or Patch Mesh or Patch Heart Description:Amplatzer Septal Occluder Asd Closure Device 34mm - Sanders [id number] Implanted:Qty: 1 on 06/20/2006 Septal Defect Occluder Device Other/Legacy - See Implant Description Description:Device Manufactu rer - [facility] [employer]. Device Status Text - [id number]. Procedures Procedure Name Priority Date/Time Associated Diagnosis Comments BI BREAST SCREENING BILATERAL WITH TOMOSYNTHESIS RAD - Routine (most inpatients and all outpatients) 07/30/2023 2:38 PM OPERATING THEATRE TECHNICIAN Screening Mammogram Breast Cancer COLOGUARD Routine 10/28/2022 5:54 PM OPERATING THEATRE TECHNICIAN Screening Cancer Colon VBG & LYTES CG8+, POCT, B Routine 09/30/2022 10:38 AM OPERATING THEATRE TECHNICIAN LIPID PANEL, S Routine 02/13/2018 6:56 AM CDT Lizy Danlos Syndrome Chronic Obstructive Pulmonary Disease (HCC) Defect Atrial Septal (HCC) from Last 3 Months or Most Recently Relevant to Health Maintenance Results * BI Breast Screening Bilateral with Tomosynthesis (07/30/2023 2:38 PM OPERATING THEATRE TECHNICIAN) Anatomical Region Laterality Modality Breast, Breast Imaging RST L OS, Breast Imaging ARZ LOS, Breast Imaging FLA LOS Bilateral Mammography 08/01/2023 12:2 8 PM OPERATING THEATRE TECHNICIAN Impressions 08/01/2023 12:33 PM OPERATING THEATRE TECHNICIAN Negative. RECOMMENDATION: ??Annual Screening Mammogram ASSESSMENT: ??BI-RADS: 1: Negative. Narrative 08/01/2023 12:33 PM OPERATING THEATRE TECHNICIAN EXAM: ??BI BREAST SCREENING BILATERAL WITH TOMOSYNTHESIS [...] ASSESSMENT: BI-RADS: 1: Negative. Darius Shaw M.D. IM BI PROCEDURES Final Res ult * Cologuard-Sent Out Lab (10/28/2022 5:54 PM OPERATING THEATRE TECHNICIAN) Result Negative Negative 11/03/2022 2:48 AM OPERATING THEATRE TECHNICIAN EX[facility] Comment: NEGATIVE TEST RESULT. A negative [...] (Yenny Adkins al, N Engl J Med 2014;370(14):5327-1053) The normal value (reference range) for this [...] Cancer Society Guideline for Colorectal Cancer Screening: https://www.cancer.org/cancer/dtesn-xsiknp-rojrny/detection- diagnosis-staging/acs-recommendations.html.; Ming MARTINEZ, Barbra CR, Erna FRANK, Colorectal Cancer Screening: Recommendations for Physicians and Patients from the U.S. Multi-Society Task Force on Colorectal Cancer Screening , Am J Gastroenterology 2017; 112:4224-9985. TEST DESCRIPTION: Composite algorithmic analysis of stool [...] (Yenny Adkins al, N Engl J Med 2014;370(14):9095-3439.) Cologuard may produce a false negative or [...] can be accessed at the following location: [email or web address]. Additional description of the Cologuard test process, warnings and precautions can be found at [email or web address]. Stool (Stool) 10/28/2022 5:5 4 PM OPERATING THEATRE TECHNICIAN 10/30/2022 1:57 PM OPERATING THEATRE TECHNICIAN us Darius Shaw M.D. LAB BODY FLUIDS AND STOOLS ORDERABLES Final Result [employer] [address] [place] [address] EXLI [employer] [address] [facility], [address] [place] [address] * Venous Blood Gas and Electrolytes CG8+, POCT (09/30/2022 10:38 AM OPERATING THEATRE TECHNICIAN) Sample Site, POCT Venstick 09/30/2022 10:54 AM OPERATING THEATRE TECHNICIAN PCSM Comment: ----ADDITIONAL INFORMATION---- Performed at the Point of Care pH, Venous, POCT, B 7.43 7.32 - 7.43 09/30/2022 10:54 AM OPERATING THEATRE TECHNICIAN PCSM Comment: ----ADDITIONAL INFORMATION---- Performed at the Point of Care pCO2, Venous, POCT, B 46 41 - 51 mm Hg 09/30/2022 10:54 AM OPERATING THEATRE TECHNICIAN PCSM Comment: ----ADDITIONAL INFORMATION---- Performed at the Point of Care pO2, Venous, POCT, B 25 Not Applicable mm Hg 09/30/2022 10:54 AM OPERATING THEATRE TECHNICIAN PCSM Comment: ----ADDITIONAL INFORMATION---- Performed at the Point of Care Base Excess, Venous, POCT, B 6 Not Applicable mmol/L 09/30/2022 10:54 AM OPERATING THEATRE TECHNICIAN PCSM Comment: ----ADDITIONAL INFORMATION---- Performed at the Point of Care HCO3, Venous, POCT, B 31 Not Applicable mmol/L 09/30/2022 10:54 AM OPERATING THEATRE TECHNICIAN PCSM Comment: ----ADDITIONAL INFORMATION---- Performed at the Point of Care Sodium, POCT, B 140 135 - 145 mmol/L 09/30/2022 10:54 AM OPERATING THEATRE TECHNICIAN PCSM Comment: ----ADDITIONAL INFORMATION---- Performed at the Point of Care Potassium, POCT, B 4.3 3.6 - 5.2 mmol/L 09/30/2022 10:54 AM OPERATING THEATRE TECHNICIAN PCSM Comment: ----ADDITIONAL INFORMATION---- Performed at the Point of Care Calcium, Ionized, POCT, B 5.20 4.65 - 5.30 mg/dL 09/30/2022 10:54 AM OPERATING THEATRE TECHNICIAN PCSM Comment: ----ADDITIONAL INFORMATION---- Performed at the Point of Care Glucose, POCT, B 117 70 - 140 mg/dL 09/30/2022 10:54 AM OPERATING THEATRE TECHNICIAN PCSM Comment: ----ADDITIONAL INFORMATION---- Performed at the Point of Care Hematocrit, POCT, B 44.0 35.5 - 44.9 % 09/30/2022 10:54 AM OPERATING THEATRE TECHNICIAN PCSM Comment: ----ADDITIONAL INFORMATION---- Performed at the Point of Care Blood 09/30/2022 10:3 8 AM OPERATING THEATRE TECHNICIAN 09/30/2022 10:54 AM OPERATING THEATRE TECHNICIAN us Unknown Provider LAB POCT ORDERABLES - DEVICE Fi nal Result POC RST [facility] INPATIENT LABS [address] [place] [address], [facility] POC [address] [place] [address] * (ABNORMAL) Lipid Panel (02/13/2018 6:56 AM CDT) Pathologist [facility] Cholesterol, Total 200(H) mg/dL 02/13/2018 8:08 AM CDT [facility] Comment: ----REFERENCE VALUE---- Desirable: < 200 Borderline high: 200 - 239 High: > or = 240 Triglycerides 143 mg/dL 02/13/2018 8:08 AM CDT [facility] Comment: ----REFERENCE VALUE---- Normal: <150 Borderline high: 150-199 High: 200-499 Very high: > or =500 Cholesterol, HDL, S 49(L) >=50 mg/dL 02/13/2018 8:08 AM CDT [facility] Calculated LDL 122 mg/dL 02/13/2018 8:08 AM CDT [facility] Comment: ----REFERENCE VALUE---- Desirable: <100 Above Desirable: 100-129 Borderline high: 130-159 High: 160-189 Very high: > or =190 Cholesterol, Non-HDL, Calculated 151 mg/dL 02/13/2018 8:08 AM CDT [facility] Comment: ----REFERENCE VALUE---- Desirable: <130 Above Desirable: 130-159 Borderline high: 160-189 High: 190-219 Very high: > or =220 Blood 02/13/2018 6:56 AM CDT 02/13/2018 7:18 AM CDT Dominique Mcgowan M.D. LAB BLOOD ADD-ON Final Result [facility] [address] [place] [address], [facility] from Last 3 Months or Most Recently Relevant to Health Maintenance Insurance [facility] Advance Directives For more information, please contact: [phone] * Full Code (Latest Code Status on File) Date Activated Date Inactivated Comments 09/30/2022 4:41 PM 10/02/2022 6:08 PM Question Answer Comments Full Code: Discussed Care Teams Sales Office Coordinator Relationship Specialty Start Date End Date Darius Shaw M.D. [id number] [place] [phone] PCP - General Family Medicine 09/27/22
--- OUTSIDE RECORDS SUMMARY | 2024-07-16 13:49 | XMS_ITS | Clinical Summary ---
Author Organization [facility] Address [address] [place] [address] Care Team Providers Care Survey Project Manager Name Role Phone Darius Shaw M.D. Primary Care Provider Source Comments Patient records contain information from all sites at [facility]. For routine questions regarding patient records, call [phone] during business hours, M-F 8:00 AM - 5:00 PM Central Time. Record requests for emergency care only can be directed to [phone] at any time.[facility] Allergies Active Allergy Reactions Criticality Noted [...] How often do you attend denominational or synagogue serv ices? Never 01/10/2023 Do you belong [...] [facility] of Occupat ional [facility] - Occupational Stress Questionnaire Answer [...] place to sleep or slept in a fpc (including now)? No 01/10/2023 Depression Answer Date [...] AM CDT Legal Sex Female 8:24 AM BALLROOM DANCER Gender Identity Female 02/11/2018 8:36 AM CDT [...] C Screening 1976 Pneumococcal vaccine (0-64 years) (2 of 2 - PCV) 03/16/2005 03/16/2004 Asthma Action Plan 04/06/2017 04/06/2016 Depression Monitoring (PHQ-9) 05/12/2023 01/10/2023 Asthma Control Test Questionnaire 01/11/2024 01/10/2023, 04/06/2016 Asthma Management/Exacerbation Questionnaire (AMQ/AEQ) 01/11/2024 01/10/2023 COVID-19 Vaccine (3 - season) 2024 07/07/2021, 11/20/2020 Influenza Vaccine (#1) 2024 , 06/23/2021, 07/27/2020, Additional history exists Mammogram 07/30/2024 07/30/2023, 07/17, 05/01/2022 (Performed elsewhere), Additional history exists Cologuard 10/28/2025 10/28/2022 Colorectal Cancer Screening 10/28/2025 Lipid (Cholesterol) Screening 07/27/2026 07/27/2021, 07/27/2020, 02/13/2018, Additional history exists Fasting Glucose for Diabetes Screening 03/03/2027 03/03/2024, 02/28/2024, 02/27/2024, Additional history exists DTaP,Tdap,and Td Vaccines (3 - Td or Tdap) 01/04/2031 01/04/2021, 01/26/2011, 04/05/2003, Additional history exists Hepatitis B Vaccines Completed 03/03/2012, 11/07/2011, 10/04/2011 IPV Vaccines Aged Out No longer eligi ble based on patient's age to complete this topic Medical Devices Implanted Type Area Memorial Adviser Device Identifier Shelf Expiration Date Model / Serial / Lot Mesh Or Patch Mesh or Patch Heart Description:Amplatzer Septal Occluder Asd Closure Device 34mm - Sanders [id number] Implanted:Qty: 1 on 06/20/2006 Septal Defect Occluder Device Other/Legacy - See Implant Description Description:Device Manufactu [facility]. Device Status Text - [id number]. Procedures Procedure Name Priority Date/Time Associated Diagnosis Comments BI BREAST SCREENING BILATERAL WITH TOMOSYNTHESIS RAD - Routine (most inpatients and all outpatients) 07/30/2023 2:38 PM BALLROOM DANCER Screening Mammogram Breast Cancer COLOGUARD Routine 10/28/2022 5:54 PM BALLROOM DANCER Screening Cancer Colon VBG & LYTES CG8+, POCT, B Routine 09/30/2022 10:38 AM BALLROOM DANCER LIPID PANEL, S Routine 02/13/2018 6:56 AM CDT Lizy Danlos Syndrome Chronic Obstructive Pulmonary Disease (HCC) Defect Atrial Septal (HCC) from Last 3 Months or Most Recently Relevant to Health Maintenance Results * BI Breast Screening Bilateral with Tomosynthesis (07/30/2023 2:38 PM BALLROOM DANCER) Anatomical Region Laterality Modality Breast, Breast Imaging RST L OS, Breast Imaging ARZ LOS, Breast Imaging FLA LOS Bilateral Mammography 08/01/2023 12:2 8 PM BALLROOM DANCER Impressions 08/01/2023 12:33 PM BALLROOM DANCER Negative. RECOMMENDATION: ??Annual Screening Mammogram ASSESSMENT: ??BI-RADS: 1: Negative. Narrative 08/01/2023 12:33 PM BALLROOM DANCER EXAM: ??BI BREAST SCREENING BILATERAL WITH TOMOSYNTHESIS [...] ASSESSMENT: BI-RADS: 1: Negative. Darius Shaw M.D. IMG BI PROCEDURES Final Res ult * Cologuard-Sent Out Lab (10/28/2022 5:54 PM BALLROOM DANCER) Result Negative Negative 11/03/2022 2:48 AM BALLROOM DANCER [facility] Comment: NEGATIVE TEST RESULT. A negative [...] (Yenny Adkins al, N Engl J Med 2014;370(14):2710-9329) The normal value (reference range) for this assay is negative. COLOGUARD RE-SCREENING RECOMMENDATION: Periodic colorectal cancer screening is an important part of preventive healthcare for asymptomatic individuals at average risk for colorectal cancer. ??Following a negative Cologuard result, the [place] Cancer Society and U.S. Multi-Society Task Force screening guidelines recommend a Cologuard re-screening interval of 3 years. References: [place] Cancer Society Guideline for Colorectal Cancer Screening: https://www.cancer.org/cancer/xfccj-aialfy-ennods/detection- diagnosis-staging/acs-recommendations.html.; Ming DK, Barbra CR, Erna SimsK, Colorectal Cancer Screening: Recommendations for Physicians and Patients from the U.S. Multi-Society Task Force on Colorectal Cancer Screening , Am J Gastroenterology 2017; 112:4832-7475. TEST DESCRIPTION: Composite algorithmic analysis of stool [...] (Yenny Adkins al, N Engl J Med 2014;370(14):1676-8722.) Cologuard may produce a false negative or false positive result (no colorectal cancer or precancerous polyp present at colonoscopy follow up). A negative Cologuard test result does not guarantee the absence of CRC or advanced adenoma (pre-cancer). The current Cologuard screening interval is every 3 years. ([place] Cancer Society and U.S. Multi-Society Task Force). Cologuard performance data in a 10,000 patient pivotal study using colonoscopy as the reference method can be accessed at the following location: [email or web address]/results. Additional description of the Cologuard test process, warnings and precautions can be found at www.[email or web address].com. Stool (Stool) 10/28/2022 5:5 4 PM BALLROOM DANCER 10/30/2022 1:57 PM BALLROOM DANCER us Darius Shaw M.D. LAB BODY FLUIDS AND STOOLS ORDERABLES Final Result [employer] [address] [place] [id number] EXLI [employer] [address], [address] [place] [address] * Venous Blood Gas and Electrolytes CG8+, POCT (09/30/2022 10:38 AM BALLROOM DANCER) [facility] Sample Site, POCT Venstick 09/30/2022 10:54 AM BALLROOM DANCER PCSM Comment: ----ADDITIONAL INFORMATION---- Performed at the Point of Care pH, Venous, POCT, B 7.43 7.32 - 7.43 09/30/2022 10:54 AM BALLROOM DANCER PCSM Comment: ----ADDITIONAL INFORMATION---- Performed at the Point of Care pCO2, Venous, POCT, B 46 41 - 51 mm Hg 09/30/2022 10:54 AM BALLROOM DANCER [facility] Comment: ----ADDITIONAL INFORMATION---- Performed at the Point of Care pO2, Venous, POCT, B 25 Not Applicable mm Hg 09/30/2022 10:54 AM BALLROOM DANCER [facility] Comment: ----ADDITIONAL INFORMATION---- Performed at the Point of Care Base Excess, Venous, POCT, B 6 Not Applicable mmol/L 09/30/2022 10:54 AM BALLROOM DANCER [facility] Comment: ----ADDITIONAL INFORMATION---- Performed at the Point of Care HCO3, Venous, POCT, B 31 Not Applicable mmol/L 09/30/2022 10:54 AM BALLROOM DANCER [facility] Comment: ----ADDITIONAL INFORMATION---- Performed at the Point of Care Sodium, POCT, B 140 135 - 145 mmol/L 09/30/2022 10:54 AM BALLROOM DANCER [facility] Comment: ----ADDITIONAL INFORMATION---- Performed at the Point of Care Potassium, POCT, B 4.3 3.6 - 5.2 mmol/L 09/30/2022 10:54 AM BALLROOM DANCER [facility] Comment: ----ADDITIONAL INFORMATION---- Performed at the Point of Care Calcium, Ionized, POCT, B 5.20 4.65 - 5.30 mg/dL 09/30/2022 10:54 AM BALLROOM DANCER [facility]CS[facility] Comment: ----ADDITIONAL INFORMATION---- Performed at the Point of Care Glucose, POCT, B 117 70 - 140 mg/dL 09/30/2022 10:54 AM BALLROOM DANCER [facility] Comment: ----ADDITIONAL INFORMATION---- Performed at the Point of Care Hematocrit, POCT, B 44.0 35.5 - 44.9 % 09/30/2022 10:54 AM BALLROOM DANCER [facility] Comment: ----ADDITIONAL INFORMATION---- Performed at the Point of Care Blood 09/30/2022 10:3 8 AM BALLROOM DANCER 09/30/2022 10:54 AM [facility] [[email or web address]] Unknown Provider LAB POCT ORDERABLES - DEVICE Fi nal Result POC RST [facility] INPATIENT LABS [address] [place] [address], [facility] PCSM [facility] POC [address] [place] [address] * (ABNORMAL) Lipid Panel (02/13/2018 6:56 AM CDT) Pathologist [facility] Cholesterol, Total 200(H) mg/dL 02/13/2018 8:08 AM CDT [facility] Comment: ----REFERENCE VALUE---- Desirable: < 200 Borderline high: 200 - 239 High: > or = 240 Triglycerides 143 mg/dL 02/13/2018 8:08 AM CDT [facility] Comment: ----REFERENCE VALUE---- Normal: <150 Borderline high: 150-199 High: 200-499 Very high: > or =500 Cholesterol, HDL, S 49(L) >=50 mg/dL 02/13/2018 8:08 AM CDT [facility] Calculated LDL 122 mg/dL 02/13/2018 8:08 AM CDT [facility] Comment: ----REFERENCE VALUE---- Desirable: <100 Above Desirable: 100-129 Borderline high: 130-159 High: 160-189 Very high: > or =190 Cholesterol, Non-HDL, Calculated 151 mg/dL 02/13/2018 8:08 AM CDT [facility] Comment: ----REFERENCE VALUE---- Desirable: <130 Above Desirable: 130-159 Borderline high: 160-189 High: 190-219 Very high: > or =220 Blood 02/13/2018 6:56 AM CDT 02/13/2018 7:18 AM CDT us Dominique Mcgowan M.D. LAB BLOOD ADD-ON Final Result [facility] [address] [place] [address], [facility] from Last 3 Months or Most Recently Relevant to Health Maintenance Insurance [facility] Advance Directives For more information, please contact: [phone] * Full Code (Latest Code Status on File) Date Activated Date Inactivated Comments 09/30/2022 4:41 PM 10/02/2022 6:08 PM Question Answer Comments Full Code: Discussed Care Teams Survey Project Manager Relationship Specialty Start Date End Date Darius Shaw M.D. [address] [place] [phone] PCP - General Family Medicine 09/27/22
--- OUTSIDE RECORDS SUMMARY | 2024-07-16 13:50 | XMS_ITS | Encounter Summary ---
Author Organization [facility] Address [address] [place] [address] Care Team Providers Care Customer Pricing Manager Name Role Phone Darius Shaw M.D. Primary Care Provider [phone] Encounter Details Date Type Department Care Team (Late st Contact Info) Description 05/12/2013 Historical Ophthalmology RST [facility] Jonathan Bonilla M.D. [address] [place] [phone] Social History Tobacco Use Types Packs/Day Years Used Date Smoking Tobacco: Never Assessed Comments Unknown Sex and Gender Information Value Date Recorded Sex Assigned at Female 02/11/2018 8:36 AM CDT Legal Sex Female 8:24 AM UTILITY DRIVER Gender Identity Female 02/11/2018 8:36 AM CDT [...] corneal thickness CDM Reports - EYEGEN Id: [id number] Status: Fnl documented in this encounter Plan of Treatment Not on file documented as of this encounter Visit Diagnoses Not on filedocumented in this encounter Additional Health Concerns Infection Onset Date Last Indicated Resolved Time COVID19 Pending 07/11/2020 07/11/2020 07/12/2020 5 :56 PM CDT COVID19 Pending 07/17/2020 07/17/2020 07/17/2020 9 :18 PM UTILITY DRIVER COVID19 Pending 09/19/2020 09/19/2020 10/09/2020 4 :45 AM UTILITY DRIVER COVID19 Pending 10/25/2020 10/26/2020 10/27/2020 9 :59 AM UTILITY DRIVER COVID19 Pending 06/03/2021 06/03/2021 06/03/2021 9 :40 AM CDT COVID19 Pending 06/03/2021 06/03/2021 06/03/2021 1 0:36 PM CDT COVID19 Pending 08/09/2021 08/09/2021 08/11/2021 1 2:57 AM UTILITY DRIVER COVID19 Pending 06/26/2022 06/26/2022 06/26/2022 5 :47 PM CDT Assessment Noted Time PHQ-9 Depression Total Score: 8 09/18/19 13 7:41 AM UTILITY DRIVER documented as of this encounter Care Teams Customer Pricing Manager Relationship Specialty Start Date End Date Darius Shaw M.D. [address] [place] [phone] PCP - General Family Medicine 09/27/22 documented as of this encounter
--- OUTSIDE RECORDS SUMMARY | 2024-07-16 13:50 | XMS_ITS ---
Author Organization [facility] Address [address] [place] [address] Care Team Providers Care Tennis Desk Team Member Name Role Phone Unavailable Unavailable Unavailable Surgery Details Not on file Complications Check Surgery Details section. Procedure Estimated Blood Loss Check Surgery Details section. Procedure Findings Check Surgery Details section. Procedure Specimens Taken Check Surgery Details section.
--- OUTSIDE RECORDS SUMMARY | 2024-07-16 13:50 | XMS_ITS ---
Care Plan Created on: July 16, 2024 Alcon Zamora Bobbi : 1975 Sex: Female Author Organization [facility] Address [address] [place] [id number] Care Team Providers Care Office Chair Assembler Name Role Phone Shauna Winston Se OD Unavailable Denise Woodson Ra, APRN [employer] ASSEMBLER Unavailable [phone] Denise Woodson Ra, APRN [employer] AND HULL ASSEMBLER Primary Care Provid er Usha Simon APRN [employer] AND HULL ASSEMBLER Unavailable [phone] Dangelo Salinas MD Unavailable Anastasia Stearns RN Unavailable [phone] Germaine Lopez [facility] Unavailable Joya Lira [facility] Unavailable Joya Lira [facility] Unavailable Fabi Coates MD Unavailable [phone] Robin Catalan MD Unavailable Danna Cardenas PA-C Unavailable [phone] Felicita Desai RN Unavailable Unavailab le Active Problems Problem Noted Date Diagnosed Date Right sided numbness 07/13/2024 Tachycardia 07/07/2024 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, unspecified cerebrovascular disease type 06/05/2024 Chronic obstructive pulmonary disease without ex acerbation 06/05/2024 Chest pain, unspecified type 05/16/2024 Gastroesophageal reflux [...] 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 Strengths: motivated, engaged in care coordination Patient expressed understanding of goal: yes Action steps to achieve this goal: 1. I will follow up with my providers as scheduled/recommended - Mental Health weekly - PT, OT and WATER JET OPERATOR, continuing through [facility]: - Continue following up with PCP: 09/04/2024 - Vascular Dr. Zambrano 05/01/24 - follow up recommended in 6 months: 11/11/24 TBD #[phone]. - call independently - MTM 05/25/2024, completed - Neurosurgery Dr. Zepeda, following up with CAMPAIGN CONSULTANT: 06/04/2025 11:00 AM (Arrive by 10:45 AM) Usha Simon APRN CNP 2. I will take my medications as prescribed. 3. I will discuss, review, schedule and complete recommended overdue health maintenance with my Primary Care Provider. 4. I will contact my care team with questions, concerns, support needs. I will use the clinic as a resource and I understand I can contact my clinic with 24/7 after hours services available. Dependency Case Manager will remain available as needed. Interventions Care Plan Interventions Intervention Entry Date Outcome Review Medical [...]
--- OUTSIDE RECORDS SUMMARY | 2024-07-16 13:50 | XMS_ITS | Referral Summary ---
Author Organization [facility] Address [address] [place] [address] Care Team Providers Care Mobile Development Manager Name Role Phone Winston Villatoro Se OD Unavailable Denise Woodson Ra, APRN REPAIRER HELPER Unavailable Denise Woodson Ra, APRN REPAIRER HELPER Primary Care Provid er Usha Simon APRN REPAIRER HELPER Unavailable [phone] Dangelo Salinas MD Unavailable Anastasia Stearns RN Unavailable [phone] Germaine Lopez [facility] Unavailable Joya Lira [facility] Unavailable Joya Lira [facility] Unavailable Fabi Coates MD Unavailable [phone] Robin Zepeda MD Unavailable [phone] Danna Cardenas PA-C Unavailable [phone] Felicita Desai RN Unavailable Unavailab le Encounters Date Type Department Care Team Description 07/16/2024 Telephone [facility] Heart Clinic [address] [place] [address] Telma Guajardo, RN 07/16/2024 MyC Medical Advice [facility] Mental Health and Addiction Clinic [address] [place] [address] Maritza Speciose, [employer] 07/16/2024 FCC Extended Documentation [facility] Mental Health and Addiction [address] [place] [address] Neisha Salasiose, [employer] 07/16/2024 11:00 AM CDT Virtual Visit [facility] Mental Health and Addiction [address] [place] [address] Sinandrei Speciose, [employer] Anxiety 07/15/2024 MyC Medical Advice [facility] Neurosurgery Clinic [address] [phone] Robin Zepeda MD 07/14/2024 Telephone [facility] Neurology Clinic [address] [phone] None Appointment (Seizure-like activity (H) R sided numbness/tinglinfg/) 07/12/2024 10:32 PM CDT - 07/13/2024 6:19 PM CDT Emergency [facility] Extended Recovery and Short Stay [address] [place] [phone] Rocio Ann MD Maresh, Andrew, DO Neshangi, Srivani, MD Anxiety (Primary Dx); Right sided numbness; Cerebrovascular accident (CVA), unspecified mechanism (H); Seizure-like activity (H) Discharge Disposition: Home or Self Care 07/12/2024 Travel 07/12/2024 Telephone [facility] Services - Neuroscience Service Line [facility] [place] [address] Sameer Tracy MD 07/07/2024 MyC Medical Advice [facility] Neurology Clinic [address] [phone] Liliane Cobos 07/07/2024 Telephone [facility] Neurology Clinic [address] [phone] Randy Maradiaga DO Clinic Care Coordination - Follow-up 07/07/2024 Documentation Only [facility] Neurosurgery Clinic [address] [place] [phone] Bryna Farley CMA 07/02/2024 PRE VISIT [facility] Neurology Clinic [address] [place] [address] Randy Maradiaga DO *-*INCOMING RECORDS*-* 07/02/2024 7:30 AM CDT Virtual Visit [facility] Neurology Clinic [address] [place] [phone] Randy Maradiaga DO Trigger point of neck (Primary Dx); History of seizure 06/29/2024 Telephone [facility] Vascular Clinic [address] [place] [phone] Lisa Zambrano MD 06/28/2024 MyC Medical Advice [facility] [address] [place] [address] Denise Woodson Ra, RECREATION ESTABLISHMENT MANAGER REPAIRER HELPER 06/26/2024 Orders Only (auto-released) [facility] Heart [place] [address] [facility] [address] [place] [phone] Danna Cardenas PA-C Tachycardia 06/26/2024 Travel 06/26/2024 2:40 PM CDT Office Visit [facility] Heart [place] [address] [facility] [address] [place] [phone] Danna Cardenas PA-C Tachycardia (Primary Dx); Chest pain, unspecified type 06/23/2024 Travel 06/16/2024 Medical Correspondence [facility] Health Information Management [address] [facility] [place] [facility] [address] [place] [address] Scan, Non-Provider 06/16/2024 Documentation Only [facility] Neurosurgery Clinic [address] [place] [phone] Lee FarleyjordinDUANE 06/08/2024 Orders Only [facility] [address], [address] [place] [phone] Rohit Barcenas MD 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) 06/08/2024 Travel 06/08/2024 8:30 AM CDT [facility] [address] [place] [phone] Denise Woodson Ra, APRN CNP Chronic obstructive pulmonary disease without exacerbation (H) (Primary Dx); History of seizure; Moderate persistent asthma without complication; Dural arteriovenous fistula; Cerebrovascular accident (CVA), unspecified mechanism (H) 06/07/2024 Travel 06/04/2024 Telephone [facility] [address] [facility] [address],[place] [phone] Unknown, Provider Appointment (Genetics referral) 06/02/2024 Travel 06/02/2024 PRE VISIT [facility] Neurosurgery Clinic [address] [phone] Robin Zepeda MD *-*INCOMING RECORDS*-* 06/02/2024 2:40 PM CDT Office Visit [facility] Neurosurgery [address] [phone] Robin Zepeda MD Dural arteriovenous fistula (Primary Dx); Cerebrovascular accident (CVA), unspecified mechanism (H) 05/30/2024 Travel 05/29/2024 Refill [facility] [address] [address] [place] [phone] Denise Woodson Ra, APRN REPAIRER HELPER Medication Refill 05/27/2024 MyC Medical Advice [facility] [address] [place], [address] [place] [phone] Rohit Barcenas MD 05/26/2024 Documentation Only [facility] Neurology Clinic [place] [address] [place] [phone] Raul Hoyos MD 05/26/2024 Travel 05/26/2024 8:30 AM CDT Office Visit [facility] [address] [place] [phone] Denise Woodson Ra, RECREATION ESTABLISHMENT MANAGER REPAIRER HELPER Chest pain, unspecified type (Primary Dx); Dural arteriovenous fistula; Muscle weakness (generalized); Hemiparesis of right dominant side as late effect of cerebrovascular disease, unspecified cerebrovascular disease type (H); Chronic obstructive pulmonary disease without exacerbation (H); Mild recurrent major depression (H) 05/25/2024 MyC Medical Advice [facility] Neurology [address] [phone] Raul Hoyos MD 05/25/2024 11:00 AM CDT Virtual Visit [facility] [address] [place] [phone] Joya Lira RPH Insomnia, unspecified type (Primary Dx); Pain of right upper extremity; Moderate persistent asthma without complication; History of seizure; History of stroke; Generalized anxiety disorder; Chronic rhinitis; Takes dietary supplements; Cerebrovascular accident (CVA), unspecified mechanism (H) 05/24/2024 MyC Medical Advice [facility] Epilepsy [facility] [address] [facility], [address] [place] [phone] Rohit Barcenas MD 05/23/2024 Travel 05/21/2024 MyC Medical Advice [facility] [address] [place] [phone] Qing Copeland 05/21/2024 Telephone [facility] Heart [address] [place] [phone] Myriam Franks, RN Clinic Care Coordination - Post Hospital (Post discharge phone call) 05/14/2024 9:06 PM CDT - 05/19/2024 4:25 PM CDT Hospital Encounter [facility] Neuroscience Unit [address] [place] [phone] Vlad Rehman MD Kharel, Tirtha R, MD Gastroesophageal reflux disease with esophagitis without hemorrhage (Primary Dx); Chest pain, unspecified type; Dural arteriovenous fistula; History of seizure; History of stroke; Pain of right upper extremity; Other constipation; Cerebrovascular accident (CVA), unspecified mechanism (H); Fibromyalgia Discharge Disposition: Home or Self Care 05/15/2024 MyC Medical Advice [facility] Neurology Clinic [place] [address] [facility] 3rd [place] [address] Stacey Kelley RN 05/15/2024 Telephone [facility] [address] [place] [address] Denise Woodson Ra, RECREATION ESTABLISHMENT MANAGER REPAIRER HELPER Forms (disability) 05/13/2024 [facility] Medical Advice Initial Department [facility] 05/13/2024 [facility] Medical Advice Initial Department [facility] 05/13/2024 Telephone [facility] Ep[facility]psy Care [address] [facility], [address] [place] [address] Rohit Barcenas MD 05/13/2024 [facility] Medical Advice [facility] Care Coordination [address] [place] [phone] Anastasia Stearns RN 05/12/2024 Travel 05/12/2024 5:25 PM CDT - 05/12/2024 6:59 PM CDT Emergency [facility] Emergency Dept [address] [place] [phone] Chinedu Moon MD Discharge Disposition: Left Without Being Seen 05/12/2024 Telephone [facility] [address] [place] [address] Denise Woodson Ra, RECREATION ESTABLISHMENT MANAGER REPAIRER HELPER 05/12/2024 MyC Medical Advice [facility] [address] [place] [phone] Denise Woodson Ra, RECREATION ESTABLISHMENT MANAGER REPAIRER HELPER Forms ([employer] - Disabi... 05/12/2024 Telephone [facility] Neurology Clinic [address] [phone] Raul Hoyos MD Symptoms (Stroke symptoms per pt ) 05/12/2024 Telephone [facility] [address] [place] [phone] Denise Woodson Ra, RECREATION ESTABLISHMENT MANAGER REPAIRER HELPER 05/11/2024 MyC Medical Advice [facility] [address] [place] [phone] Denise Woodson Ra, RECREATION ESTABLISHMENT MANAGER REPAIRER HELPER 05/10/2024 10:48 AM CDT - 05/11/2024 12:03 AM CDT Emergency [facility] Emergency Department [address] [place] [address] Todd Osborn MD Hackner, Michelle C, MD Intractable headache, unspecified chronicity pattern, unspecified headache type; Dizziness Discharge Disposition: Home or Self Care 05/10/2024 Travel 05/08/2024 MyC Medical Advice [facility] Neurosurgery Clinic [address] [phone] Robin Zepeda MD 05/06/2024 MyC Medical Advice [facility] [address], [address] [place] [address] Rohit Barcenas MD 05/05/2024 Travel 05/05/2024 2:30 PM CDT Office Visit [facility] [address], [address] [place] [address] Rohit Barcenas MD 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) (Primary Dx); Fibromuscular dysplasia (H); Cerebrovascular accident (CVA), unspecified mechanism (H) 05/04/2024 Travel 05/01/2024 Travel 05/01/2024 10:30 AM CDT Office Visit [facility] Vascular Clinic [place] [address] [place] [phone] Lisa Zambrano MD Fibromuscular dysplasia (H24) ?? 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[place] [address] 04/30/2024 Travel 04/30/2024 Refill [facility] [address] [place] [phone] Denise Woodson Ra, BARRERA HUBBARD Medication Refill 04/28/2024 Travel 04/27/2024 Telephone [facility] [address] [place] [phone] Denise Woodson Ra, BARRERA REPAIRER HELPER Medication Refill 04/15/2024 Travel 04/15/2024 8:45 AM CDT Therapy Visit [address] [phone] Denise Woodson Ra, APRN CNP Peterson, Megan A, OTR Cerebrovascular accident (CVA), unspecified mechanism (H) (Primary Dx) 04/15/2024 9:30 AM CDT Therapy Visit [address] [phone] Danya You PA Morgan, Lindsay M, MONUMENTAL STONEMASON Cognitive communication deficit (Primary Dx); Cerebrovascular accident (CVA), unspecified mechanism (H) from Last 3 Months Allergies Active Allergy Reactions Criticality Noted Date Comments Acetaminophen-Codeine Nausea and Vomiting,Other (See Comments) 01/10/2022 Bupropion GI Disturbance,Other (See Comments) Low 01/19/2011 Diarrhea and stomach ache Codeine GI Disturbance High 09/23/2022 Other Reaction(s): epigastric pain Erythromycin GI Disturbance Low 12/27/2005 Mold Dizziness,GI Disturbance 08/22/2012 Molds & Smuts Dizziness,Nausea 08/22/2012 Morphine GI Disturbance 05/15/2024 Pollen Extract Other (See Comments),Unknown 08/22/2012 Medications albuterol (PROAIR HFA/PROVENTIL HFA/VENTOLIN HFA) 108 (90 Base) MCG/ACT inhalerIndication s:Moderate persistent asthma without complication Inhale 2 puffs into the lungs every 4 hours as needed for shortness of breath / dyspnea or wheezing 1 Inhaler 3 07/13/20 Active cetirizine (ZYRTEC) 10 MG tablet Take 10 mg by mouth at bedtime. Active psyllium (METAMUCIL) 28.3 % packet Take 1 packet by mouth daily Active senna-docusate (SENOKOT-S/JIMMY LACE) 8.6-50 MG tabletIndications :Other constipation Take 2 tablets by mouth 2 times daily as needed for constipation 01/22/20 Active Additional Information Patient taking differently: 1 tabletOralDAILY, Reported on 07/13/2024 methyl salicylate-mentho l (ICY HOT) ointmentIndicatio ns:Fibromyalgia,P ain of right upper extremity Apply topically every 6 hours as needed (pain) 01/22/20 Active acetaminophen (TYLENOL) 500 MG tabletIndications :Fibromyalgia,Tony n of right upper extremity Take 1-2 tablets (500-1,000 mg) by mouth 3 times daily as needed for mild pain or headaches 01/24/20 Active MAGNESIUM PO Take 1 tablet by mouth at bedtime. Active aspirin 81 MG EC tabletIndications :Cerebrovascular accident (CVA), unspecified mechanism (H) Take 2 tablets (162 mg) by mouth daily. 05/19/20 Active Additional Information Patient taking differently: 3 tabletOral DAILY, Reported on 07/13/2024 oxyCODONE (ROXICODONE) 5 MG tabletIndications :Cerebrovascular accident (CVA), unspecified mechanism (H) Take 0.5 tablets (2.5 mg) by mouth every 4 hours as needed for moderate to severe pain. 10 tablet 05/19/20 24 Active Lidocaine (LIDOCARE) 4 % PatchIndications: Pain of right upper extremity,Fibromy algia Place 1 patch onto the skin daily as needed. To prevent lidocaine toxicity, patient should be patch free for 12 hrs daily. 05/19/20 24 Active traZODone (DESYREL) 100 MG tablet Take 100 mg by mouth at bedtime. 05/29/20 24 Active LORazepam (ATIVAN) 1 MG tabletIndications :History of seizure Take 1/2-1 tablet daily as needed for onset of dizziness. 10 tablet 06/08/20 24 Active fluticasone-vilan terol (BREO ELLIPTA) 200-25 MCG/ACT inhalerIndication s:Moderate persistent asthma without complication Inhale 1 puff into the lungs daily. 3 each 1 06/08/20 24 Active levETIRAcetam (KEPPRA) 750 MG tabletIndications :History of seizure Take 1/2 of 750 mg tab BID 120 tablet 2 07/02/20 24 Active citalopram (CELEXA) 10 MG tabletIndications :Anxiety Take 0.5 tablets (5 mg) by mouth daily. 30 tablet 07/14/20 24 Active atorvastatin (LIPITOR) 10 MG tabletIndications :Cerebrovascular accident (CVA), unspecified mechanism (H) Take 1 tablet (10 mg) by mouth daily. 30 tablet 07/13/20 24 Active traZODone (DESYREL) 50 MG tabletIndications :Insomnia, unspecified type Take 2 tablets (100 mg) by mouth At Bedtime 180 tablet 3 07/27/20 21 024 Discontin ued(Med Rec(No AVS / No eCancel)) levETIRAcetam (KEPPRA) 750 MG tabletIndications :History of seizure Take 1/2 of 750 mg tab BID 05/19/20 24 024 Discontin ued(Reord er (No AVS)) rosuvastatin (CRESTOR) 10 MG tabletIndications :Cerebrovascular accident (CVA), unspecified mechanism (H) Take 1 tablet (10 mg) by mouth at bedtime. 30 tablet 2 05/25/20 24 024 Discontin ued(Stop at Discharge ) melatonin 1 MG TABS tablet Take 1 mg by mouth at bedtime. 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 60 tablet 5 06/08/20 24 024 Discontin ued(Med Rec(No AVS / No eCancel)) Active Problems Problem Noted Date Diagnosed Date [...] Name Administration Dates Next Due COVID-19 Vaccine (SmartExposee) 11/20/2020 Flu, Unspecified 07/11/2017,07/02/2014 HepB 03/03/2012,11/07/2011,10/04/2011 Hepatitis [...] How often do you attend amish or mormon serv ices? Never 02/28/2024 Do [...] PHQ-2 Answer Date Recorded PHQ-2 Score 4 07/16/2024 [facility] - Occupational Stress Questionnaire Answer Date [...] you got money to buy more? No 05/19/2024 Within the past 12 months, d id the food you bought just not last and you didn? t have money to get more? No 05/19/2024 Housing Stability Answer Date Recorded Do you have housing? (Valerie g is defined as stable permanent housing and does not include staying ouside in a car, in a tent, in an abandoned building, in an overnight prison, or couch-surfing.) No 05/19/2024 Are you worried about losing your housing? No 05/19/2024 Financial Resource Strain Answer Date R ecorded Within the past 12 months, h ave you or your family members you live with been unable to get utilities (heat, electricity) when it was really needed? No 05/19/2024 Transportation Needs Answer Date Record ed Within the past 12 months, h as lack of transportation kept you from medical appointments, getting your medicines, non-medical meetings or appointments, work, or from getting things that you need? No 05/19/2024 Interpersonal Safety Answer Date Record ed Do you feel physically and e motionally safe where you currently live? No 05/17/2024 Within the past 12 months, h ave you been hit, slapped, kicked or otherwise physically hurt by someone? No 05/17/2024 Within the past 12 months, h ave you been humiliated or emotionally abused in other ways by your partner or ex-partner? 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 file Not on file Not on file Not on file Not on file Not on file Not on file Last Filed Vital Signs Vital Sign Reading Time Taken Comments Blood Pressure 135/88 07/13/2024 4:20 PM CDT Pulse 82 07/13/2024 4:20 PM CDT Temperature 37.4 ??C (99.3 ??F) 07/13/2024 4:20 PM CD T Respiratory Rate 16 07/13/2024 4:20 PM CDT Oxygen Saturation 95% 07/13/2024 4:20 PM CDT Inhaled Oxygen Concentration - - Weight 97.4 kg (214 lb 11.2 oz) 07/13/2024 4:51 AM CDT Height 172.7 cm (5' 8) 07/13/2024 4:51 AM CDT Body Mass Index 32.65 07/13/2024 4:51 AM CDT Plan of Treatment Upcoming Encounters Date Type Department Care Team (Late st Contact Info) Description 07/20/2024 12:00 PM VICE PRESIDENT PLANNING Virtual Visit [facility] [address] [place] [address] Denise Woodson Ra, RECREATION ESTABLISHMENT MANAGER [facility] [address] [place] [address] 07/30/2024 8:30 AM VICE PRESIDENT PLANNING Virtual Visit [facility] Neurology Clinic [address] [phone] Randy Maradiaga DO [address] [place] [address] 08/04/2024 12:00 PM VICE PRESIDENT PLANNING Virtual Visit [facility] Mental Health and Addiction Clinic [place] [address] [place] [address] ChristophsamanthaledyNeishamadi, [facility] [address] [place] [address] 08/04/2024 3:30 PM VICE PRESIDENT PLANNING [facility] [address] [place] [phone] Denise Woodson Ra, RECREATION ESTABLISHMENT MANAGER REPAIRER HELPER [address] [place], [place] [phone] 08/07/2024 1:00 PM VICE PRESIDENT PLANNING Appointment [facility] Heart Care [address] [facility] [address] [place] [phone] Danna Cardenas PA-C [address] [place], [place] [address] 08/10/2024 12:30 PM VICE PRESIDENT PLANNING Virtual Visit [facility] Neuropsychology [address] [phone] Robin Zepeda MD [address] [place] [phone] 08/17/2024 12:30 PM VICE PRESIDENT PLANNING Office Visit [facility] Neuropsychology [address] [phone] Robin Zepeda MD [address] [place] [phone] Tulio Ogden, PhD [address] [address] 09/04/2024 11:00 AM VICE PRESIDENT PLANNING Office Visit [facility] [address] [place] [phone] Denise Woodson Ra, RECREATION ESTABLISHMENT MANAGER REPAIRER HELPER [address] [facility] [place] [place] [phone] 09/18/2024 1:00 PM VICE PRESIDENT PLANNING Office Visit [facility] [address] [place] [phone] Denise Woodson Ra, RECREATION ESTABLISHMENT MANAGER REPAIRER HELPER [address] [facility] [place], [place] [phone] 09/29/2024 9:00 AM VICE PRESIDENT PLANNING Virtual Visit [facility] Neurology [address] [phone] Randy Maradiaga, [address] [address] 10/09/2024 1:20 PM VICE PRESIDENT PLANNING Office Visit [facility] Heart [place] [address] [facility] [address] [place] [phone] Danna Cardenas PA-C [address] [place] [address] 10/30/2024 4:00 PM VICE PRESIDENT PLANNING Virtual Visit [facility] Vascular Clinic [place] [address] [place] [phone] Lisa Zambrano MD [address] [place] [address] 12/29/2024 12:45 PM CDT Office Visit [facility] [address],[place] [phone] Fabi Coates MD [address] [address] 12/29/2024 1:45 PM CDT Office Visit [facility] [address] [facility] [address],[place] [phone] Fabi Coates MD [address] [facility] [address] [place] [address] 06/01/2025 11:15 AM CDT Appointment [facility] Imaging [address] [place] [address] Robin Zepeda MD [address] [place] [address] 06/04/2025 11:00 AM CDT Office Visit [facility] Neurosurgery Clinic [address] 3rd [place] [phone] Robin Zepeda MD [address] [place] [address] Usha Simon APRN [address] [address] Goals Goal Patient Goal Type Associated Problems [...] Mental Health weekly - PT, OT and MONUMENTAL STONEMASON, continuing through [facility] [place]: - Continue following up with PCP: 09/04/2024 - Vascular Dr. Zambrano 05/01/24 - follow up recommended in 6 months: 11/11/24 TBD #[phone]. - call independently - MTM 05/25/2024, completed - Neurosurgery Dr. Zepeda, following up with HEALTH SUPPORT SPECIALIST: 06/04/2025 11:00 AM (Arrive by 10:45 AM) Usha Simon APRN REPAIRER HELPER 2. I will take my medications as prescribed. 3. I will discuss, review, schedule and complete recommended overdue health maintenance with my Primary Care Provider. 4. I will contact my care team with questions, concerns, support needs. I will use the clinic as a resource and I understand I can contact my clinic with 24/ after hours services available. [facility] will remain available as needed. Procedures Procedure Name Priority Date/Time Associated Diagnosis Comments ZIO PATCH MAIL OUT Routine 07/16/2024 11 :43 AM CDT Tachycardia ECHO COMPLETE WITH CONTRAST Routine 07/13/2024 4:00 PM CDT CBC WITH PLATELETS & DIFFERENTIAL STAT 07/13/2024 12:40 PM CDT CBC WITH PLATELETS AND DIFFERENTIAL STAT 07/13/2024 12:40 PM CDT HEMOGLOBIN A1C Routine 07/13/2024 12:40 PM CDT LIPID REFLEX TO DIRECT LDL PANEL STAT 07/13/2024 12:40 PM CDT COMPREHENSIVE METABOLIC PANEL STAT 07/13/2024 12:40 PM CDT GLUCOSE BY METER Routine 07/13/2024 7:56 AM CDT MR BRAIN W/O CONTRAST STAT 07/13/2024 1:09 AM CDT T4 FREE Routine 07/12/2024 11:28 PM CDT TSH WITH FREE T4 REFLEX Add-On 07/12/2024 11:28 PM CDT KEPPRA (LEVETIRACETAM) LEVEL STAT 07/12/2024 11:28 PM CDT EKG 12-LEAD COMPLETE W/READ - CLINICS Routine 06/26/2024 Chest pain, unspecified type MR BRAIN W/O & W CONTRAST Routine 05/15/2024 4:01 PM CDT MRA BRAIN ([place]) W/O CONTRAST Routine 05/15/2024 4:01 [...] LDL PANEL Routine 05/15/2024 6:25 AM CDT EKG CARDIAC - HIM SCAN 12:00 AM CDT MR BRAIN W/O & W [...] TRACING ONLY STAT 05/10/2024 11:25 AM CDT MA SCREENING BILATERAL W/ MAT Routine 04/25/2022 5:03 PM CDT Visit for screening mammogram from Last 3 Months or Most Recently Relevant to Health Maintenance Results * ZIO PATCH MAIL OUT (07/16/2024 11:43 AM CDT) Anatomical Region Laterality Modality Other Narrative 07/16/2024 11:43 AM CDT 7-day recording. Rare ectopic beats, including an 8-beat SVT run. Patient-triggered events correlated with sinus rhythm with or without single PVCs. us Danna Cardenas PA-C CV CARDIAC SERVICES ORDERABL ES Final Result * ECHO COMPLETE WITH CONTRAST (07/13/2024 4:00 PM CDT) LVEF 55% CARDIOLOGY RESULTS Anatomical Region Laterality Modality Echocardiography 07/13/2024 3:16 PM CDT Narrative 07/13/2024 4:29 PM T [id number]^EVER^AZRA^Analy [facility] Echocardiography Laboratory [address] [place] [address] Name: CHRISTOPHER TY : 1975 Study Date: 07/13/2024 03:16 PM Age: 48 yrs Gender: Female Patient Location: [facility] Reason For Study: TIA Ordering Physician: AZRA CURTIS Performed By: aJnna Fenton BSA: 2.1 m2 Height: 68 in Weight: 214 lb HR: 71 BP: 138/92 mmHg Procedure Complete Portable Echo Adult. Definity ([facility] #[id number]) given intravenously. Contrast Definity. Technically difficult study.Extremely difficult acoustic windows despite the use of contrast for endcardial border definition. Interpretation Summary Very limited echo views. 1. The left ventricle is normal in structure, function and size. The visual ejection fraction is estimated at 55%. 2. The right ventricle is not well visualized. 3. No valve disease. No previous echo for comparison. Left Ventricle The left ventricle is normal in structure, function and size. The visual ejection fraction is estimated at 55%. Regional wall motion abnormalities cannot be excluded due to limited visualization. Right Ventricle The right ventricle is not well visualized. Atria The left atrium is not well visualized. Right atrium not well visualized. Mitral Valve The mitral valve is normal in structure and function. Tricuspid Valve The tricuspid valve is normal in structure and function. Aortic Valve The aortic valve is normal in structure and function. Pulmonic Valve The pulmonic valve is not well visualized. Vessels The inferior vena cava was normal in size with preserved respiratory variability. Pericardium There is no pericardial effusion. Rhythm Sinus rhythm was noted. MMode/2D Measurements & Calculations Ao root diam: 3.0 cm LVOT diam: 2.1 cm LVOT area: 3.4 cm2 Ao root diam index Ht(cm/m): 1.7 Ao root diam index BSA (cm/m2): 1.4 Report approved by: Lauro Renteria 07/13/2024 04:29 PM Procedure Note Joe Matos MD - 07/13/2024 [id number]^EVER^AZRA^Analy [facility] Echocardiography Laboratory [address] [place] [address] Name: CHRISTOPHER TY : 1975 Study Date: 07/13/2024 03:16 PM Age: 48 yrs Gender: Female Patient Location: [facility] Reason For Study: TIA Ordering Physician: AZRA CURTIS Performed By: Janna Fenton BSA: 2.1 m2 Height: 68 in Weight: 214 lb HR: 71 BP: 138/92 mmHg Procedure Complete Portable Echo Adult. Definity ([facility] #[id number]) givenintravenously. Contrast Definity. Technically difficult study.Extremely difficultacoustic windows despite the use of contrast for endcardial border definition. Interpretation Summary Very limited echo views. 1. The left ventricle is normal in structure, function and size. Thevisual ejection fraction is estimated at 55%. 2. The right ventricle is not well visualized. 3. No valve disease. No previous echo for comparison. Left Ventricle The left ventricle is normal in structure, function and size. The visual ejection fraction is estimated at 55%. Regional wall motionabnormalities cannot be excluded due to limited visualization. Right Ventricle The right ventricle is not well visualized. Atria The left atrium is not well visualized. Right atrium not wellvisualized. Mitral Valve The mitral valve is normal in structure and function. Tricuspid Valve The tricuspid valve is normal in structure and function. Aortic Valve The aortic valve is normal in structure and function. Pulmonic Valve The pulmonic valve is not well visualized. Vessels The inferior vena cava was normal in size with preserved respiratory variability. Pericardium There is no pericardial effusion. Rhythm Sinus rhythm was noted. MMode/2D Measurements & Calculations Ao root diam: 3.0 cm LVOT diam: 2.1 cm LVOT area: 3.4 cm2 Ao root diam index Ht(cm/m): 1.7 Ao root diam index BSA (cm/m2): 1.4 Report approved by: Lauro Renteria 07/13/2024 04:29 PM us Azra Curtis PA-C CV ECHO ORDERABLES Edite d Result - Final * CBC with platelets and differential (07/13/2024 12:40 PM CDT) Only the most recent of3 resultswithin the time period is included. WBC Count 9.5 4.0 - 11.0 10e3/uL 07/13/2024 1:10 PM CDT LABORATORY RBC Count 4.58 3.80 - 5.20 10e6/uL 07/13/2024 1:10 PM CDT LABORATORY Hemoglobin 13.8 11.7 - 15.7 g/dL 07/13/2024 1:10 PM CDT LABORATORY Hematocrit 41.8 35.0 - 47.0 % 07/13/2024 1:10 PM CDT LABORATORY MCV 91 78 - 100 fL 07/13/2024 1:10 PM CDT LABORATORY MCH 30.1 26.5 - 33.0 pg 07/13/2024 1:10 PM CDT LABORATORY MCHC 33.0 31.5 - 36.5 g/dL 07/13/2024 1:10 PM CDT LABORATORY RDW 12.2 10.0 - 15.0 % 07/13/2024 1:10 PM CDT LABORATORY Platelet Count 205 150 - 450 10e3/uL 07/13/2024 1:10 PM CDT LABORATORY % Neutrophils 69 % 07/13/2024 1:10 PM CDT LABORATORY % Lymphocytes 21 % 07/13/2024 1:10 PM CDT LABORATORY % Monocytes 7 % 07/13/2024 1:10 PM CDT LABORATORY % Eosinophils 3 % 07/13/2024 1:10 PM CDT LABORATORY % Basophils 1 % 07/13/2024 1:10 PM CDT LABORATORY % Immature Granulocytes 0 % 07/13/2024 1:10 PM CDT LABORATORY NRBCs per 100 WBC 0 <1 /100 024 1:10 PM CDT LABORATORY Absolute Neutrophils 6.5 1.6 - 8.3 10e3/uL 07/13/2024 1:10 PM CDT LABORATORY Absolute Lymphocytes 2.0 0.8 - 5.3 10e3/uL 07/13/2024 1:10 PM CDT LABORATORY Absolute Monocytes 0.6 0.0 - 1.3 10e3/uL 07/13/2024 1:10 PM CDT LABORATORY Absolute Eosinophils 0.3 0.0 - 0.7 10e3/uL 07/13/2024 1:10 PM CDT LABORATORY Absolute Basophils 0.1 0.0 - 0.2 10e3/uL 07/13/2024 1:10 PM CDT LABORATORY Absolute Immature Granulocytes 0.0 <=0.4 10e3/uL 07/13/2024 1:10 PM CDT LABORATORY Absolute NRBCs 0.0 10e3/uL 07/13/2024 1:10 PM CDT LABORATORY Blood STRUCTURE OF LEFT WRIST REGION / Unknown Venipuncture / Unknown 07/13/2024 12:40 PM CDT 07/13/2024 12:58 PM CDT us Azra Curtis PA-C LAB - BLOOD ORDERABLES F inal Result LABORATORY [facility] [address], [address] [place] [address], [place] [phone] * (ABNORMAL) Lipid panel reflex to direct LDL (07/13/2024 12:40 PM CDT) Only the most recent of2 resultswithin the time period is included. Cholesterol 217(H) <200 mg/dL 07/13/2024 4:43 PM CDT [facility] LAB[facility]ATORY Triglycerides 275(H) <150 mg/dL 07/13/2024 4:43 PM CDT [facility] Direct Measure HDL 55 >=50 mg/dL 07/13/2024 4:43 PM CDT [facility] LDL Cholesterol Calculated 107(H) <100 mg/dL 07/13/2024 4:43 PM CDT [facility] LAB[facility] Non HDL Cholesterol 162(H) <130 mg/dL 07/13/2024 4:43 PM CDT [facility] LAB[facility]ATORY Patient Fasting > 8hrs? No 07/13/2024 4:43 PM CDT SH LABORATORY Blood STRUCTURE OF LEFT WRIST REGION / Unknown Venipuncture / Unknown 07/13/2024 12:40 PM CDT 07/13/2024 12:58 PM CDT Narrative [facility] LAB[facility]ATORY - 07/13/2024 4:43 PM CDT Cholesterol Desirable: < 200 mg/dL Borderline High: 200 - 239 mg/dL High: >= 240 mg/dL Triglycerides Normal: < 150 mg/dL Borderline High: 150 - 199 mg/dL High: 200-499 mg/dL Very High: >= 500 mg/dL Direct Measure HDL Female: >= 50 mg/dL Male: >= 40 mg/dL LDL Cholesterol Desirable: < 100 mg/dL Above Desirable: 100 - 129 mg/dL Borderline High: 130 - 159 mg/dL High: ??160 - 189 mg/dL Very High: >= 190 mg/dL Non HDL Cholesterol Desirable: < 130 mg/dL Above Desirable: 130 - 159 mg/dL Borderline High: 160 - 189 mg/dL High: 190 - 219 mg/dL Very High: >= 220 mg/dL us Azra Curtis PA-C LAB - BLOOD ORDERABLES F inal Result [facility] LABORATORY [facility] [address] [facility] [address] Building, [address] [place] [address], [facility] LABORATORY [facility] [address], [address] [place] [address], [place] [phone] * Hemoglobin A1c (07/13/2024 12:40 PM CDT) [facility] Estimated Average Glucose 111 <117 mg/dL 07/13/2024 1:16 PM CDT LABORATORY Hemoglobin A1C 5.5 <5.7 % 07/13/2024 1:16 PM CDT LABORATORY Comment: Normal <5.7% Prediabetes 5.7-6.4% ?? Diabetes 6.5% or higher Note: Adopted from ADA consensus guidelines. Blood STRUCTURE OF LEFT WRIST REGION / Unknown Venipuncture / Unknown 07/13/2024 12:40 PM CDT 07/13/2024 12:58 PM CDT us Azra Curtis PA-C LAB - BLOOD ORDERABLES F inal Result LABORATORY [facility] [address], [address] [place] [address], [place] [phone] * Comprehensive metabolic panel (07/13/2024 12:40 PM CDT) [facility] Sodium 137 135 - 145 mmol/L 07/13/2024 1:30 PM CDT LABORATORY Potassium 4.4 3.4 - 5.3 mmol/L 07/13/2024 1:30 PM CDT LABORATORY Carbon Dioxide (CO2) 27 22 - 29 mmol/L 07/13/2024 1:30 PM CDT LABORATORY Anion Gap 8 7 - 15 mmol/L 07/13/2024 1:30 PM CDT LABORATORY Urea Nitrogen 12.9 6.0 - 20.0 mg/dL 07/13/2024 1:30 PM CDT LABORATORY Creatinine 0.64 0.51 - 0.95 mg/dL 07/13/2024 1:30 PM CDT LABORATORY GFR Estimate >90 >60 mL/min/1.7 3m2 07/13/2024 1:30 PM CDT LABORATORY Comment:eGFR calculated us2020 CKD-EPI equation. Calcium 9.6 8.8 - 10.4 mg/dL 07/13/2024 1:30 PM CDT LABORATORY Comment:Reference intervals for this test were updated on 03/31/2024 to reflect our healthy population more accurately. There may be differences in the flagging of prior results with similar values performed with this method. Those prior results can be interpreted in the context of the updated reference intervals. Chloride 102 98 - 107 mmol/L 07/13/2024 1:30 PM T LABORATORY Glucose 96 70 - 99 mg/dL 07/13/2024 1:30 PM CDT LABORATORY Alkaline Phosphatase 87 40 - 150 U/L 07/13/2024 1:30 PM CDT LABORATORY AST 24 0 - 45 U/L 07/13/2024 1:30 PM CDT LABORATORY Comment:Specimen is hemolyze d which can falsely elevate AST. Analysis of a non-hemolyzed specimen may result in a lower value. ALT 15 0 - 50 U/L 07/13/2024 1:30 PM CDT LABORATORY Protein Total 7.0 6.4 - 8.3 g/dL 07/13/2024 1:30 PM CDT LABORATORY Albumin 3.9 3.5 - 5.2 g/dL 07/13/2024 1:30 PM CDT LABORATORY Bilirubin Total 0.4 <=1.2 mg/dL 07/13/2024 1:30 PM T LABORATORY Blood STRUCTURE OF LEFT WRIST REGION / Unknown Venipuncture / Unknown 07/13/2024 12:40 PM CDT 07/13/2024 12:58 PM CDT us Azra Curtis PA-C LAB - BLOOD ORDERABLES F inal Result LABORATORY [facility] [address], [address] [place] [address], [place] [phone] * Glucose by meter (07/13/2024 7:56 AM CDT) Only the most recent of2 resultswithin the time period is included. GLUCOSE BY METER POCT 93 70 - 99 mg/dL 07/13/2024 8:03 AM CDT LABORATORY POC Blood, Capillary BLOOD SPECIMEN / Unknown 07/13/2024 7:56 AM CDT 07/13/2024 8:03 AM CDT us Morgan Morales MD LAB - BEAKER POCT Final Resu lt LABORATORY POC [facility] [address], [address] [place] [address], [place] * MR Brain w/o Contrast (07/13/2024 1:09 AM CDT) Anatomical Region Laterality Modality Head, SUBRAD MR NEURO, UMP MR NEURO, RAD MR Magnetic Resonance 07/13/2024 1:09 AM CDT Impressions 07/13/2024 1:21 AM CDT FINDINGS/IMPRESSION: 1. ??Only sagittal T1 images and diffusion imaging obtained secondary to patient terminating examination early. No acute infarct. No hydrocephalus. No other gross abnormality identified. Narrative 07/13/2024 1:21 AM CDT EXAM: MR BRAIN W/O CONTRAST LOCATION: [facility] DATE: 07/13/2024 INDICATION: right sided numnbess. difficulty swallowing. hx of strokes COMPARISON: ??MRI brain May 15, 2024. TECHNIQUE: Routine multiplanar multisequence head MRI without intravenous contrast. Procedure Note Alfred Kruger MD - 07/13/2024 EXAM: MR BRAIN W/O CONTRAST LOCATION: [facility] DATE: 07/13/2024 INDICATION: right sided numnbess. difficulty swallowing. hx of strokes COMPARISON: MRI brain May 15, 2024. TECHNIQUE: Routine multiplanar multisequence head MRI without intravenouscontrast. FINDINGS/IMPRESSION: 1. Only sagittal T1 images and diffusion imaging obtained secondary topatient terminating examination early. No acute infarct. No hydrocephalus.No other gross abnormality identified. Rocio Ann MD IMG MRI ORDERABLES Glendy l Result * Keppra (Levetiracetam) Level (07/12/2024 11:28 PM CDT) Only the most recent of2 resultswithin the time period is included. Pathologist [facility] Keppra (Levetiracetam) Level 13.3 10.0 - 40.0 ??g/mL 07/13/2024 4:46 AM CDT [facility] LAB[facility]ATORY Blood BLOOD SPECIMEN / Unknown Venipuncture / Unknown 07/12/2024 11:28 PM CDT 07/12/2024 11:35 PM CDT Rocio Ann MD LAB - BLOOD ORDERABLES Final Result LABORATORY [facility] [address] [place] [address], [address] * (ABNORMAL) TSH with free T4 reflex (07/12/2024 11:28 PM CDT) [facility] TSH 9.38(H) 0.30 - 4.20 uIU/mL 07/13/2024 11:17 AM CDT [facility] LAB[facility]ATORY Blood BLOOD SPECIMEN / Unknown Venipuncture / Unknown 07/12/2024 11:28 PM CDT 07/12/2024 11:35 PM CDT Azra Curtis PA-C LAB - BLOOD ORDERABLES F inal Result LABORATORY [facility] [address] [facility], [address] * T4 free (07/12/2024 11:28 PM CDT) [facility] Free T4 1.19 0.90 - 1.70 ng/dL 07/13/2024 12:17 PM CDT [facility] LABORATORY Blood BLOOD SPECIMEN / Unknown Venipuncture / Unknown 07/12/2024 11:28 PM CDT 07/12/2024 11:35 PM CDT Azra Curtis PA-C LAB - BLOOD ORDERABLES F inal Result U LABORATORY [facility] [address] [facility] [address] [facility], [address] [place] [address] * EKG 12-lead complete w/read - Clinics (performed today) (06/26/2024) Danna Cardenas PA-C ECG ORDERABLES Final Result * MR Brain w/o & w Contrast [...] less likely. MIRELA TINEO MD SYSTEM ID: ??[id number] Narrative 05/15/2024 4:10 PM CDT MRI BRAIN [...] less likely. MIRELA TINEO MD SYSTEM ID: [id number] Stevo Islas MD IMG MRI ORDERABLES Final Result * MRA Neck ([place]) wo & w Contrast (05/15/2024 4:01 PM CDT) Anatomical Region Laterality Modality Neck, SUBRAD MR NEURO, UMP MR NEURO, RAD MR Magnetic Resonance Impressions 05/15/2024 4:12 PM CDT IMPRESSION: ??Normal MR angiogram of the neck. MIRELA TINEO MD SYSTEM ID: ??[id number] Narrative 05/15/2024 4:12 PM CDT MRA NECK WITHOUT AND WITH CONTRAST ??05/15/2024 4:01 PM HISTORY: left sided tingling, eb and flow since yesterday history of prior CVA mri head done last th at [facility] TECHNIQUE: 2D [id number] MR angiogram of the neck without contrast [...] CVA mri head done last th at [facility] TECHNIQUE: 2D [id number] MR angiogram of the neck without contrast [...] the neck. MIRELA TINEO MD SYSTEM ID: [id number] Delicia Saini APRN [facility] MRI ORDERABLES Fin al Result * MRA Brain ([place]) wo Contrast (05/15/2024 4:01 PM CDT) Anatomical Region Laterality Modality Head, SUBRAD MR NEURO, UMP MR NEURO, RAD MR Magnetic Resonance Impressions 05/15/2024 4:17 PM CDT IMPRESSION: ??No hemodynamically significant stenosis in the head or evidence of acute vascular injury. ?? MIRELA TINEO MD SYSTEM ID: ??[id number] Narrative 05/15/2024 4:17 PM CDT MR ANGIOGRAM OF THE HEAD WITHOUT CONTRAST ?? 05/15/2024 4:01 PM HISTORY: eb/flow of left sided heaviness, tingling, since yesterday TECHNIQUE: ??3D [id number] MR angiogram of the head without contrast. [...] sided heaviness, tingling, since yesterday TECHNIQUE: 3D [id number] MR angiogram of the head without contrast. [...] vascular injury. MIRELA TINEO MD SYSTEM ID: [id number] us Delicia Saini APRN REPAIRER HELPER IMG MRI ORDERABLES Fin al Result * NM Lexiscan stress test (nuc card) [...] wall motion is normal. Christen Peng MD [facility] [place] ORDERABLES Final Resul t * Basic metabolic panel (05/15/2024 6:25 AM CDT) Only the most recent of2 resultswithin the time period is included. [facility] Signature Sodium 141 135 - 145 mmol/L 05/15/2024 7:26 AM [facility] Potassium 4.5 3.4 - 5.3 mmol/L 05/15/2024 7:26 AM [facility] Chloride 106 98 - 107 mmol/L 05/15/2024 7:26 AM [facility] Carbon Dioxide (CO2) 27 22 - 29 mmol/L 05/15/2024 7:26 AM [facility] Anion Gap 8 7 - 15 mmol/L 05/15/2024 7:26 AM [facility] Urea Nitrogen 15.4 6.0 - 20.0 mg/dL 05/15/2024 7:26 AM CDT LABORATORY Creatinine 0.90 0.51 - 0.95 mg/dL 05/15/2024 7:26 AM CDT LABORATORY GFR Estimate 79 >60 mL/min/1.7 3m2 05/15/2024 7:26 AM CDT LABORATORY Comment:eGFR calculated usin 2020 CKD-EPI equation. [...] CDT Christen Peng MD LAB - BLOOD ORDERABLES Final Result LABORATORY [facility] [address], [address] [place] [address], [place] [phone] * EKG Cardiac - HIM Scan (05/14/2024 12:00 AM CDT) 05/14/2024 Provider Outside ECG ORDERABLES Final Result * CTA Head Neck with Contrast (05/10/2024 [...] of the upper aortic arch through [place]. This CT angiogram data was [...] of the upper aortic arch through the [place]. This CT angiogram data was [...] agree with the findings. SHANA NIETO MD us Todd Osborn MD IMG CT ORDERABLES Final Result * CT Head w/o Contrast (05/10/2024 3:39 [...] the vertex were obtained without intravenous contrast. Well Servicing Rig Operator (topogram) image(s) also obtained and reviewed. FINDINGS: [...] the vertex were obtained without intravenous contrast. Well Servicing Rig Operator (topogram) image(s) also obtained and reviewed. FINDINGS: [...] findings. SHANA NIETO MD Todd Osborn MD [facility] [place] ORDERABLES Final Result * Troponin T, High Sensitivity (05/10/2024 2:34 [...] 2:34 PM CDT 05/10/2024 2:38 PM CDT us Todd Osborn MD LAB - BLOOD ORDERABLES Final Re sult Performing Organization Address City/[facility]/ZIP Co de Phone Number LABORATORY [facility] [address] [facility], [address] * INR (05/10/2024 2:34 PM CDT) INR 0.92 0.85 - 1.15 05/10/2024 2:54 PM CDT LABORATORY Blood STRUCTURE OF LEFT HAND / Unknown Venipuncture / Unknown 05/10/2024 2:34 PM CDT 05/10/2024 2:38 PM CDT us Todd Osborn MD LAB - BLOOD ORDERABLES Final Re sult Performing Organization Address [facility] Co de Phone Number LABORATORY [facility] [address] [facility], [address] * Partial thromboplastin time (05/10/2024 2:34 PM CDT) aPTT 25 22 - 38 Seconds 05/10/2024 2:54 PM CDT LABORATORY Blood STRUCTURE OF LEFT HAND / Unknown Venipuncture / Unknown 05/10/2024 2:34 PM CDT 05/10/2024 2:38 PM CDT us Todd Osborn MD LAB - BLOOD ORDERABLES Final Re sult [facility] LABORATORY [facility] [address] [facility] [address], [address] [place] [address] * EKG 12-lead, tracing only (05/10/2024 11:25 AM CDT) Systolic Blood Pressure mmHg RADIOLOGY RESULTS Diastolic Blood Pressure mmHg RADIOLOGY RESULTS Ventricular Rate 66 BPM RAD IOLOGY RESULTS Atrial Rate 66 BPM RADIOLOG Y RESULTS SD Interval 162 ms RADIOLOG Y RESULTS QRS Duration 84 ms RADIOLO GY RESULTS QT 378 ms RADIOLOGY RESULTS QTc 396 ms RADIOLOGY RESULTS P [place] 67 degrees RADIOLOGY RESULTS R AXIS 84 degrees RADIOLOGY RESULTS T [place] 34 degrees RADIOLOGY RESULTS Interpretation ECG Sinus rhythm Possible Left atrial enlargement Borderline ECG Unconfirmed report - interpretation of this ECG is computer generated - see medical record for final interpretation Confirmed by - EMERGENCY ROOM, PHYSICIAN ([id number]), editorial manager MAILE STEINER ([id number]) on 05/10/2024 11:53:46 AM RADIOLOGY RESULTS 05/10/2024 11:2 5 AM CDT 05/10/2024 11:53 AM CDT us Todd Osborn MD ECG ORDERABLES Edited Result - Final RADIOLOGY RESULTS * MA Screen Bilateral w/Mat (04/25/2022 5:03 [...] letter mailed to patient. 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 [address] , [address] [place] [address] [employer] * Guarantor: Christopher Ty Account Type Relation to Patient Date of Phone Billing Address Medication Therapy Self 1975 [address] [place] [address] [facility] Direct[facility] For more information, please contact: [phone] * Full Code (Latest Code Status on File) Date Activated Date Inactivated Comments 07/13/2024 4:25 AM 07/13/2024 8:19 PM All basic and advanced life-sustaining interventions are performed as appropriate Question Answer Comments Code status determined by: Discussion with patie nt/ legal decision maker * Full Code Date Activated Date Inactivated Comments 05/14/2024 9:57 PM 05/19/2024 6:30 PM All basic and advanced life-sustaining interventions [...] patie nt/ legal decision maker Care Teams Mobile Development Manager Relationship Specialty Start Date End Date Winston Villatoro OD [facility] [place] [address] [place] [address] PCP - Ophthalmology Ophthalmology 02/11/13 Denise Woodson Ra, APRN REPAIRER HELPER [address] [place] [address] PCP - General Family Practice 09/21/20 Denise Woodson Ra, APRN REPAIRER HELPER [address] [place] [address] Assigned PCP 07/17/20 Usha Simon APRN REPAIRER HELPER [address] [facility] [place] [address] Nurse Practitioner Neurological Surgery 01/24/24 Dangelo Salinas MD [address] [place] [address] Neurology 01/27/24 Anastasia Stearns, RN [facility] Dem[facility]ator 02/06/24 Germaine Lopez, CHW Community Health Worker Primary Care - CC 02/18/24 Joya Lira RPH [address] [place], [place] [phone] Pharmacist Pharmacist 05/25/24 Joya Lira RPH [address] [place], [place] [id number] Assigned MTM Pharmacist 06/08/24 Fabi Coates MD [address] [facility] [address] [place] [address] Genetics, Clinical 06/18/24 Robin Zepeda MD [address] [facility] [place] [address] Assigned Neuroscience Provider 07/08/24 Danna Cardenas PA-C [address] [place], [place] [address] Assigned Heart and Vascular Provider 07/08/24 Felicita Desai RN [facility] 07/14/24
--- OUTSIDE RECORDS SUMMARY | 2024-07-16 13:50 | XMS_ITS | Clinical Summary ---
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/08/2007): bronchopulmonary dysplasia Cervical disc syndrome Fibromyalgia Encounters Date Type Department Care Team Description 05/08/2024 Office Visit [facility] [address] [place] [id number] Bette Mantilla MD Telehealth ([facility] ) 05/07/2024 Office Visit [facility] [address] [place] [phone] Roshni Molina MD Telehealth ([facility] - phone consult only) from Last 3 Months Immunizations Name Administration Dates Next Due COVID-19 vaccine ([employer] NTech 30mcg/0.3mL) PF, MDV 07/07/2021 Hepatitis B, [...] Father he was adopted, and young in [facility] Health Mother Relation Name Status Comments [...] 2021 08/03/2011 Mammogram for age 45-75 2021 BMI (ht and wt on same day) for age 18+ 01/10/2024 01/09/2023, 01/10/2022, 11/02/2019, Additional history exists Depression screening for age 12+ 01/12/2024 01/11/2023, 01/09/2023 COVID-19 vaccine series ( season) 2024 07/07/2021, 11/20/2020 Influenza for age 9-49 05/17/2024 , 06/23/2021, 07/27/2020, Additional history exists Tetanus booster 01/04/2031 01/04/2021, 01/14, 04/05/2003, Additional history exists Pneumococcal series for age 6-64 Aged Out 03/16/2004 No longer eligible based on patient's age to complete this topic Tdap Completed 01/04/2021, 01/26/2011 Procedures Procedure Name Priority Date/Time Associated Diagnosis Comments LIPID PANEL W REFLEX MEASURED LDL Routine 08/03/2011 10:31 AM EDUCATION PROGRAM COORDINATOR Screening for other and unspecified cardiovascular conditions from Last 3 Months or Most Recently Relevant to Health Maintenance Results * LIPID PANEL W REFLEX MEASURED LDL (08/03/2011 10:31 AM EDUCATION PROGRAM COORDINATOR) CHOLESTEROL,TOTAL 171 110 - 199 mg/dL [facility] TRIGLYCERIDES 67 <150 mg/dL [facility] HDL CHOLESTEROL 43 >40 mg/dL [facility] CHOL/HDL RATIO 3.98 <4.51 [facility] LDL CHOLESTEROL 115 <131 mg/dL [facility] PATIENT STATUS Fasting [facility] Blood specimen (specimen) BLOOD SPECIMEN / Unknown 08/03/2011 10:31 AM EDUCATION PROGRAM COORDINATOR 08/03/2011 10:23 AM EDUCATION PROGRAM COORDINATOR Jasvir Pickens MD CHEMISTRY [facility] [address] [place] [address] from Last 3 Months or Most Recently Relevant to Health Maintenance Advance Directives * Full Code (Latest Code Status on File) Date Activated Date Inactivated Comments 01/09/2024 7:44 AM 01/09/2024 6:26 PM Question Answer Comments Code Status Discussion: Reviewed Preferences Care Teams Sales Promoter Relationship Specialty Start Date End Date Keira Irvin MD [address] [place] [address] PCP - General Family Practice 01/08/24
--- OUTSIDE RECORDS SUMMARY | 2024-07-16 13:50 | XMS_ITS | Clinical Summary ---
Author Organization [place] Address [address] [place] [address] Care Team Providers Care Installment Dealer Name Role Phone Shauna Winston Se OD Unavailable [phone] Denise Woodson Ra, APRN FIELD COUNSEL Unavailable [phone] Denise Woodson Ra, APRN FIELD COUNSEL Primary Care Provid er Usha Simon APRN FIELD COUNSEL Unavailable [phone] Dangelo Salinas MD Unavailable Anastasia Stearns RN Unavailable Germaine Lopez [facility] Unavailable Joya Lira [facility] Unavailable Joya Lira [facility] Unavailable Fabi Coates MD Unavailable [phone] Robin Catalan MD Unavailable Danna Cardenas PA-C Unavailable [phone] Felicita Desai RN Unavailable Unavailab le Allergies Active Allergy Reactions Criticality Noted Date [...] moderate to severe pain. 10 tablet 05/19/20 Active Lidocaine (LIDOCARE) 4 % PatchIndications: Pain [...] Date Type Department Care Team Description 07/16/2024 11:00 AM CDT Virtual Visit [facility] [place] [address] [place] [address] SinyiLorrie garciae, PLISSE MACHINE OPERATOR Anxiety 07/16/2024 Telephone [facility] [address] [place] [address] Telma Guajardo RN 07/16/2024 MyC Medical Advice [facility] Addiction [address] [place] [phone] Arthur Salas, PLISSE MACHINE OPERATOR 07/16/2024 FCC Extended Documentation [facility] Addiction [facility] [address] [place] [phone] Arthur Salas, PLISSE MACHINE OPERATOR 07/15/2024 MyC Medical Advice [facility] Neurosurgery [facility] [place] [address] [place] [address] [address]rd [place] [phone] Robin Zepeda MD 07/14/2024 Telephone [facility] Neurology Clinic [address] [address] None Appointment (Seizure-like activity (H) R sided numbness/tinglinfg/) 07/12/2024 10:32 PM CDT - 07/13/2024 6:19 PM CDT Emergency [facility] Extended Recovery and Short Stay [address] [place] [address] Rocio Ann MD Maresh, Andrew, DO Neshangi, Srivani, MD Anxiety (Primary Dx); Right sided numbness; Cerebrovascular accident (CVA), unspecified mechanism (H); Seizure-like activity (H) Discharge Disposition: Home or Self Care 07/12/2024 Travel 07/12/2024 Telephone [facility] Services - Neuroscience Service Line [address] [place] [address] Sameer Tracy MD 07/07/2024 MyC Medical Advice [facility] [address] [address] Liliane Cobos 07/07/2024 Telephone [facility] [address] [address] Randy Maradiaga DO Clinic Care Coordination - Follow-up 07/07/2024 Documentation Only [facility] Neurosurgery [facility] [address] [place] [phone] Bryan Farley CMA 07/02/2024 7:30 AM CDT Virtual Visit [facility] Neurology [address] [place] [phone] Randy Maradiaga DO Trigger point of neck (Primary Dx); History of seizure 07/02/2024 PRE VISIT [facility] Neurology [address] [place] [phone] Randy Maradiaga, *-*INCOMING RECORDS*-* 06/29/2024 Telephone [facility] Vascular [address] [place] [address] [place] [phone] Lisa Zambrano MD 06/28/2024 MyC Medical Advice [facility] [address] [place] [phone] Denise Woodson Ra, SPEECH AND HEARING DIRECTOR FIELD COUNSEL 06/26/2024 2:40 PM CDT Office Visit [facility] Heart [address] [place] [phone] Danna Cardenas PA-C Tachycardia (Primary Dx); Chest pain, unspecified type 06/26/2024 Orders Only (auto-released) [facility] Heart [address] [place] [phone] Danna Cardenas PA-C Tachycardia 06/26/2024 Travel 06/23/2024 Travel 06/16/2024 Medical Correspondence [facility] Health Information Management [address] [facility] [address] [place] [address] Scan, Non-Provider 06/16/2024 Documentation Only [facility] Neurosurgery [address] [phone] Bryan Farley CMA 06/08/2024 8:30 AM CDT Office Visit [facility] [address] [place] [phone] Denise Woodson Ra, APRN CNP Chronic obstructive pulmonary disease without exacerbation (H) (Primary Dx); History of seizure; Moderate persistent asthma without complication; Dural arteriovenous fistula; Cerebrovascular accident (CVA), unspecified mechanism (H) 06/08/2024 Orders Only [facility] [address] [place] [phone] Rohit Barcenas MD 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) 06/08/2024 Travel 06/07/2024 Travel 06/04/2024 Telephone [facility] [address] [facility] [address],[place] [phone] Unknown, Provider Appointment (Genetics referral) 06/02/2024 2:40 PM CDT Office Visit [facility] Neurosurgery [address] [phone] Robin Zepeda MD Dural arteriovenous fistula (Primary Dx); Cerebrovascular accident (CVA), unspecified mechanism (H) 06/02/2024 Travel 06/02/2024 PRE VISIT [address] [address] Robin Zepeda MD *-*INCOMING RECORDS*-* 05/30/2024 Travel 05/29/2024 Refill [facility] [address] [place] [phone] Denise Woodson Ra, APRN CNP Medication Refill 05/27/2024 MyC Medical Advice Se [facility] [address], [address] [place] [phone] Rohit Barcenas MD 05/26/2024 8:30 AM CDT Office Visit [facility] [address] [place] [phone] Denise Woodson Ra, SPEECH AND HEARING DIRECTOR FIELD COUNSEL Chest pain, unspecified type (Primary Dx); Dural arteriovenous fistula; Muscle weakness (generalized); Hemiparesis of right dominant side as late effect of cerebrovascular disease, unspecified cerebrovascular disease type (H); Chronic obstructive pulmonary disease without exacerbation (H); Mild recurrent major depression (H) 05/26/2024 Documentation Only [facility] Neurology [address] [phone] Raul Hoyos MD 05/26/2024 Travel 05/25/2024 11:00 AM CDT Virtual Visit [facility] [address] [place] [address] Joya Lira RPH Insomnia, unspecified type (Primary Dx); Pain of right upper extremity; Moderate persistent asthma without complication; History of seizure; History of stroke; Generalized anxiety disorder; Chronic rhinitis; Takes dietary supplements; Cerebrovascular accident (CVA), unspecified mechanism (H) 05/25/2024 MyC Medical Advice [facility] Neurology [address] [phone] Raul Hoyos MD 05/24/2024 MyC Medical Advice [facility] Epilepsy [facility] [address] [facility], [address] [place] [phone] Rohit Barcenas MD 05/23/2024 Travel 05/21/2024 MyC Medical Advice [facility] [address] [place] [address] Qing Copeland 05/21/2024 Telephone [facility] [address] [facility] [address] [place] [address] Myriam Franks, RN Clinic Care Coordination - Post Hospital (Post discharge phone call) 05/15/2024 MyC Medical Advice [facility] Neurology [address] [phone] Stacey Kelley, GEMA 05/15/2024 Telephone [facility] [address] [place] [address] Denise Woodson Ra, APRN FIELD COUNSEL Forms (disability) 05/14/2024 9:06 PM CDT - 05/19/2024 4:25 PM CDT Hospital Encounter [facility] [address] [place] [address] Vlad Rehman MD Kharel, Tirtha R, MD Gastroesophageal reflux disease with esophagitis without hemorrhage (Primary Dx); Chest pain, unspecified type; Dural arteriovenous fistula; History of seizure; History of stroke; Pain of right upper extremity; Other constipation; Cerebrovascular accident (CVA), unspecified mechanism (H); Fibromyalgia Discharge Disposition: Home or Self Care 05/13/2024 MyC Medical Advice Initial Department [facility] 05/13/2024 MyC Medical Advice Initial Department [facility] 05/13/2024 Telephone [facility] Epilepsy [facility] [address] [facility], [address] [place] [phone] Rohit Barcenas MD 05/13/2024 MyC Medical Advice [facility] Care Coordination [address] [place] [address] Anastasia Stearns RN 05/12/2024 5:25 PM CDT - 05/12/2024 6:59 PM CDT Emergency [facility] Emergency Dept [address] [place] [address] Chinedu Moon MD Discharge Disposition: Left Without Being Seen 05/12/2024 Travel 05/12/2024 Telephone [facility] [address] [place] [address] Denise Woodson Ra, APRN FIELD COUNSEL 05/12/2024 MyC Medical Advice [facility] [address] [place] [address] Denise Woodson Ra, SPEECH AND HEARING DIRECTOR FIELD COUNSEL Forms ([employer] - Disabi... 05/12/2024 Telephone [facility]rology Clinic [address] [place] [phone] Raul Hoyos MD Symptoms (Stroke symptoms per pt ) 05/12/2024 Telephone [facility] [address] [place] [phone] Deinse Woodson Ra, APRN FIELD COUNSEL 05/11/2024 MyC Medical Advice [facility] [address] [place] [phone] Denise Woodson Ra, APRN FIELD COUNSEL 05/10/2024 10:48 AM CDT - 05/11/2024 12:03 AM CDT Emergency [facility] Emergency Department [address] [place] [phone] Todd Osborn MD Hackner, Michelle C, MD Intractable headache, unspecified chronicity pattern, unspecified headache type; Dizziness Discharge Disposition: Home or Self Care 05/10/2024 Travel 05/08/2024 MyC Medical Advice [facility] Neurosurgery Clinic [address] [phone] Robin Zepeda MD 05/06/2024 MyC Medical Advice [facility] [address], [address] [place] [address] Rohit Barcenas MD 05/05/2024 2:30 PM CDT Office Visit [facility] [address], [address] [place] [address] Rohit Barcenas MD 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) (Primary Dx); Fibromuscular dysplasia (H); Cerebrovascular accident (CVA), unspecified mechanism (H) 05/05/2024 Travel 05/04/2024 Travel 05/01/2024 10:30 AM CDT Office Visit [facility] Vascular Clinic [place] [phone] Lisa Zambrano MD Fibromuscular dysplasia (H24) ?? 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 05/01/2024 Travel 04/30/2024 Travel 04/30/[address] [phone] Denise Woodson Ra, BARRERA HUBBARD Medication Refill 04/28/2024 Travel 04/27/[address] [phone] Denise Woodson Ra, BARRERA FIELD COUNSEL Medication Refill 04/15/2024 9:30 AM CDT Therapy Visit [address] [phone] Danya You PA Morgan, Lindsay M, MEDICAL EDITOR Cognitive communication deficit (Primary Dx); Cerebrovascular accident (CVA), unspecified mechanism (H) 04/15/2024 8:45 AM CDT Therapy Visit [address] [phone] Denise Woodson Ra, SPEECH AND HEARING DIRECTOR Isabel Brewster, OTR Cerebrovascular accident (CVA), unspecified mechanism (H) (Primary Dx) 04/15/2024 Travel from Last 3 Months Immunizations Name Administration Dates Next Due COVID-19 Vaccine ([place]) 11/20/2020 Flu, Unspecified 07/11/2017,07/02/2014 HepB 03/03/2012,11/07/2011,10/04/2011 Hepatitis [...] How often do you attend buddhist or sikh serv ices? 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 Not on file Not [...] st Contact Info) Description 07/20/2024 12:00 PM RING BARKER OPERATOR Virtual Visit [facility] [address] [place] [address] Denise Woodson Ra, SPEECH AND HEARING DIRECTOR [facility] [address] [place] [address] 07/30/2024 8:30 AM RING BARKER OPERATOR Virtual Visit [facility]rology Clinic [address] [phone] Randy Maradiaga DO [address] [place] [address] 08/04/2024 12:00 PM RING BARKER OPERATOR Virtual Visit [facility] [address] [place] [address] Arthur Salas, [address] [address] 08/04/2024 3:30 PM RING BARKER OPERATOR Virtual Visit [facility] [address] [place] [phone] Denise Woodson Ra, SPEECH AND HEARING DIRECTOR FIELD COUNSEL [address] [place] [address] 08/07/2024 1:00 PM RING BARKER OPERATOR Appointment [facility] Heart Care [facility] [address] [place] [phone] Danna Cardenas, PA-C [address] [place] [phone] 08/10/2024 12:30 PM RING BARKER OPERATOR Virtual Visit [facility] Neuropsychology [address] [phone] Robin Zepeda MD [address] [place] [address] [id number] [place] [address] 08/17/2024 12:30 PM RING BARKER OPERATOR Office Visit [facility] Neuropsychology [address] [phone] Robin Zepeda MD [address] [facility] [id number] [place] [address] Tulio Ogden, PhD [address] [address] 09/04/2024 11:00 AM RING BARKER OPERATOR Office Visit [facility] [address] [place] [phone] Denise Woodson Ra, SPEECH AND HEARING DIRECTOR FIELD COUNSEL [address] [place], [place] [phone] 09/18/2024 1:00 PM RING BARKER OPERATOR Office Visit [facility] [address] [place] [phone] Denise Woodson Ra, SPEECH AND HEARING DIRECTOR FIELD COUNSEL [address] [place], [place] [phone] 09/29/2024 9:00 AM RING BARKER OPERATOR Virtual Visit [facility] Neurology [address] [phone] Randy Maradiaga, [address] [place] [address] 10/09/2024 1:20 PM RING BARKER OPERATOR Office Visit [facility] [address] [facility] [address] [place] [phone] Danna Cardenas PA-C [address] [place], [place] [phone] 10/30/2024 4:00 PM RING BARKER OPERATOR Virtual Visit [facility] [place] [address] [place] [address] Lisa Zambrano MD [address] [place] [address] 12/29/2024 12:45 PM CDT Office Visit [facility] [address] [place] [phone] Fabi Coates MD [address] [place] [address] 12/29/2024 1:45 PM CDT Office Visit [facility] [address] [place] [phone] Fabi Coates MD [address] [place] [phone] 06/01/2025 11:15 AM CDT Appointment [facility] [address] [facility] [address] [place] [phone] Robin Zepeda MD [address] [place] [address] 06/04/2025 11:00 AM CDT Office Visit [facility] Neurosurgery Clinic [address] 3rd [place] [phone] Robin Zepeda MD [address] [place] [phone] Usha Simon APRN [address] [id number] Health Maintenance Due Date Last Done Comments ADVANCE CARE PLANNING [address] COPD [address] COLONOGRAPHY 1976 FIT 1976 FLEX SIG 1976 SPIROMETRY 1976 COLONOSCOPY 1986 HIV SCREENING 1991 HEPATITIS C SCREENING 1994 Pneumococcal Vaccine: Pediatrics (0 to 5 Years) and At-Risk Patients (6 to 64 Years) (2 of 2 - PCV) 03/16/2005 03/16/2004 YEARLY PREVENTIVE VISIT 01/11/2024 01/11/20 23, 07/27/2021, 07/27/2020, Additional history exists COVID-19 Vaccine ( season) 2024 07/07/2021, 11/20/2020 INFLUENZA VACCINE (#1) 2024 , 06/23/2021, 07/27/2020, Additional history exists PHQ-9 01/13/2025 07/16/2024, 07/0 10/2023, 02/12/2024, Additional history exists ANNUAL REVIEW OF HM ORDERS 02/05/2025 02/06/2024, LIPID 07/13/2025 07/13/2024, 04/18, 07/27/2021, Additional history exists MAMMO SCREENING 07/30/2025 07/30/2023, 07/17, 04/25/2022, Additional history exists COLORECTAL CANCER SCREENING 10/28/2025 sDNA (Cologuard) 10/28/2025 10/28/2022 GLUCOSE 07/13/2027 07/13/2024, 06/17, 05/15/2024, Additional history exists DTAP/TDAP/TD IMMUNIZATION (7 - Td or Tdap) 01/04/2031 01/04/2021, 01/26/2011, 04/05/2003, Additional history exists RSV VACCINE (1 - 1-dose 75+ series) 2051 HEPATITIS B IMMUNIZATION Completed 012, 03/03/2012, 11/07/2011, Additional history exists DEPRESSION ACTION PLAN Completed 01/04/2021, 2020 Medicare Annual MTM Pharmacist Visit (once per calendar year) Completed 05/25/2024 HPV IMMUNIZATION Aged Out No longer e [...] of re-admission 30%( 4 2:50 PM CDT) No Anastasia Stearns, RN Note: Barriers: diagnosis of multiple, chronic, complex medical conditions, provider availability - wait time to complete appointments, etc. Strengths: motivated, engaged in care coordination Patient expressed understanding of goal: yes Action steps to achieve this goal: 1. I will follow up with my providers as scheduled/recommended - Mental Health weekly - PT, OT and MEDICAL EDITOR, continuing through [facility] [place]: - Continue following up with PCP: 09/04/2024 - Vascular Dr. Zambrano 05/01/24 - follow up recommended in 6 months: 11/11/24 TBD #[phone]. - call independently - MTM 05/25/2024, completed - Neurosurgery Dr. Zepeda, following up with COURTESY VAN DRIVER: 06/04/2025 11:00 AM (Arrive by 10:45 AM) Usha Simon APRN FIELD COUNSEL 2. I will take my medications as prescribed. 3. I will discuss, review, schedule and complete recommended overdue health maintenance with my Primary Care Provider. 4. I will contact my care team with questions, concerns, support needs. I will use the clinic as a resource and I understand I can contact my clinic with 24/7 after hours services available. Sap Hana Architect will remain available as needed. Procedures Procedure [...] Routine 05/15/2024 4:01 PM CDT MRA BRAIN ([place]) W/O CONTRAST Routine 05/15/2024 4:01 [...] sinus rhythm with or without single PVCs. Danna Cardenas PA-C CV CARDIAC SERVICES ORDERABL ES Final Result * ECHO COMPLETE WITH CONTRAST (07/13/2024 4:00 PM CDT) LVEF 55% CARDIOLOGY RESULTS Anatomical Region Laterality Modality Echocardiography 07/13/2024 3:16 PM CDT Narrative 07/13/2024 4:29 PM CDT [id number]^AZRA^Analy [facility] Echocardiography Laboratory [address] [place] [address] Name: CHRISTOPHER TY : 1975 Study Date: 07/13/2024 03:16 PM Age: 48 yrs Gender: Female Patient Location: [facility] Reason For Study: TIA Ordering Physician: AZRA CURTIS Performed By: Janna Fenton BSA: 2.1 m2 Height: 68 in Weight: 214 lb HR: 71 BP: 138/92 mmHg Procedure Complete Portable Echo Adult. Definity ([facility] #[id number]) given intravenously. Contrast Definity. Technically difficult study.Extremely [...] Procedure Note Joe Matos MD - 07/13/2024 [id number]^AZRA^Analy [facility] Echocardiography Laboratory [address] [place] [address], [place] [address] Name: CHRISTOPHER TY : 1975 Study Date: 07/13/2024 03:16 PM Age: 48 yrs Gender: Female Patient Location: [facility] Reason For Study: TIA Ordering Physician: AZRA CURTIS Performed By: Janna Fenton BSA: 2.1 m2 Height: 68 in Weight: 214 lb HR: 71 BP: 138/92 mmHg Procedure Complete Portable Echo Adult. Definity ([facility] #[id number]) givenintravenously. Contrast Definity. Technically difficult study.Extremely difficultacoustic [...] - BLOOD ORDERABLES F inal Result LABORATORY [facility] Lab [address] 1[address] floor, [address] [place] [address], [facility] [phone] * (ABNORMAL) Lipid panel reflex to direct [...] > 8hrs? No 07/13/2024 4:43 PM CDT LABORATORY Blood STRUCTURE OF LEFT [...] 219 mg/dL Very High: >= 220 mg/dL Azra Curtis PA-C LAB - BLOOD ORDERABLES F inal Result LABORATORY [facility] [place] [facility] [address] [facility], [address] [place] [address], [facility] LABORATORY [facility] Lab [address] floor, [address] [place] [address], [facility] [phone] * Hemoglobin A1c (07/13/2024 12:40 PM CDT) [facility] Estimated Average Glucose 111 <117 mg/dL 07/13/2024 1:16 PM CDT LABORATORY Hemoglobin A1C 5.5 <5.7 % 07/13/2024 1:16 PM CDT LABORATORY Comment: Normal <5.7% Prediabetes 5.7-6.4% ?? Diabetes 6.5% or higher Note: Adopted from ADA consensus guidelines. Blood STRUCTURE OF LEFT WRIST REGION / Unknown Venipuncture / Unknown 07/13/2024 12:40 PM CDT 07/13/2024 12:58 PM CDT Azra Curtis PA-C LAB - BLOOD ORDERABLES F inal Result LABORATORY [facility] Lab [address] floor, [address] [place] [address], [facility] [phone] * Comprehensive metabolic panel (07/13/2024 12:40 PM CDT) Sodium 137 135 - 145 mmol/L 07/13/2024 [...] 07/13/2024 1:30 PM CDT LABORATORY Comment:eGFR calculated usin g 2020 CKD-EPI equation. Calcium 9.6 8.8 - 10.4 mg/dL 07/13/2024 1:30 PM T LABORATORY Comment:Reference intervals for this test were updated on 03/31/2024 to reflect our healthy population more accurately. There may be differences in the flagging of prior results with similar values performed with this method. Those prior results can be interpreted in the context of the updated reference intervals. Chloride 102 98 - 107 mmol/L 07/13/2024 1:30 PM CDT LABORATORY Glucose 96 70 - 99 mg/dL [...] Total 0.4 <=1.2 mg/dL 07/13/2024 1:30 PM CDT LABORATORY Blood STRUCTURE OF LEFT WRIST REGION / Unknown Venipuncture / Unknown 07/13/2024 12:40 PM CDT 07/13/2024 12:58 PM CDT Azra Curtis PA-C LAB - BLOOD ORDERABLES F inal Result LABORATORY [facility] Lab [address] floor, [address] [place] [address], [facility] [phone] * Glucose by meter (07/13/2024 7:56 AM CDT) Only the most recent of2 resultswithin the time period is included. [facility] GLUCOSE BY METER POCT 93 70 - 99 mg/dL 07/13/2024 8:03 AM CDT LABORATORY POC Blood, Capillary BLOOD SPECIMEN / Unknown 07/13/2024 7:56 AM CDT 07/13/2024 8:03 AM CDT Morgan Morales MD LAB - BEAKER POCT Final Resu lt LABORATORY POC [facility] Lab [address] floor, [address] [place] [address], [facility] * MR Brain w/o Contrast (07/13/2024 1:09 [...] CDT EXAM: MR BRAIN W/O CONTRAST LOCATION: [facility] DATE: 07/13/2024 INDICATION: right sided numnbess. difficulty swallowing. hx of strokes COMPARISON: ??MRI brain May 15, 2024. TECHNIQUE: Routine multiplanar multisequence head MRI without intravenous contrast. Procedure Note Alfred Kruger MD - 07/13/2024 EXAM: MR BRAIN W/O CONTRAST LOCATION: [facility] DATE: 07/13/2024 INDICATION: right sided numnbess. difficulty swallowing. hx of strokes COMPARISON: MRI brain May 15, 2024. TECHNIQUE: Routine multiplanar multisequence head MRI without intravenouscontrast. FINDINGS/IMPRESSION: 1. Only sagittal T1 images and diffusion imaging obtained secondary topatient terminating examination early. No acute infarct. No hydrocephalus.No other gross abnormality identified. us Rocio Ann MD IMG MRI ORDERABLES Glendy l Result * Keppra (Levetiracetam) Level (07/12/2024 11:28 PM CDT) Only the most recent of2 resultswithin the time period is included. Keppra (Levetiracetam) Level 13.3 10.0 - 40.0 ??g/mL 07/13/2024 4:46 AM CDT [facility] Blood BLOOD SPECIMEN / Unknown Venipuncture / Unknown 07/12/2024 11:28 PM CDT 07/12/2024 11:35 PM CDT us Rocio Ann MD LAB - BLOOD ORDERABLES Final Result [facility] [place] [facility] [address] [facility] [address], [address] [place] [address], [facility] * (ABNORMAL) TSH with free T4 reflex (07/12/2024 11:28 PM CDT) TSH 9.38(H) 0.30 - 4.20 uIU/mL 07/13/2024 11:17 AM CDT [facility] Blood BLOOD SPECIMEN / Unknown Venipuncture / Unknown 07/12/2024 11:28 PM CDT 07/12/2024 11:35 PM CDT Azra Curtis PA-C LAB - BLOOD ORDERABLES F inal Result Performing Organization Address City/[facility]/ZIP Co de Phone Number U LABORATORY [facility] [place] [facility] [address] [facility], [address] * T4 free (07/12/2024 11:28 PM CDT) [facility] Signature Free T4 1.19 0.90 - 1.70 ng/dL 07/13/2024 12:17 PM CDT U LABORATORY Blood BLOOD SPECIMEN / Unknown Venipuncture / Unknown 07/12/2024 11:28 PM CDT 07/12/2024 11:35 PM CDT Azra Curtis PA-C LAB - BLOOD ORDERABLES F inal Result Performing Organization Address City/[facility] Co de Phone Number LABORATORY [facility] [address] [place] [address], [address] * EKG 12-lead complete w/read - Clinics [...] less likely. MIRELA TINEO MD SYSTEM ID: ??[id number] Narrative 05/15/2024 4:10 PM CDT MRI BRAIN [...] less likely. MIRELA TINEO MD SYSTEM ID: [id number] Stevo Islas MD [facility] MRI ORDERABLES Final Result * MRA Neck (Carotids) wo & w Contrast (05/15/2024 4:01 PM CDT) Anatomical Region Laterality Modality Neck, SUBRAD MR NEURO, UMP MR NEURO, RAD MR Magnetic Resonance Impressions 05/15/2024 4:12 PM CDT IMPRESSION: ??Normal MR angiogram of the neck. MIRELA TINEO MD SYSTEM ID: ??[id number] Narrative 05/15/2024 4:12 PM CDT MRA NECK WITHOUT AND WITH CONTRAST ??05/15/2024 4:01 PM HISTORY: left sided tingling, eb and flow since yesterday history of prior CVA mri head done last at [place] TECHNIQUE: 2D [id number] MR angiogram of the neck without contrast [...] CVA mri head done last th at [place] TECHNIQUE: 2D [id number] MR angiogram of the neck without contrast [...] the neck. MIRELA TINEO MD SYSTEM ID: [id number] Delicia Saini APRN [facility] MRI ORDERABLES Fin al Result * MRA Brain ([place]) wo Contrast (05/15/2024 4:01 PM CDT) Anatomical Region Laterality Modality Head, SUBRAD MR NEURO, UMP MR NEURO, RAD MR Magnetic Resonance Impressions 05/15/2024 4:17 PM CDT IMPRESSION: ??No hemodynamically significant stenosis in the head or evidence of acute vascular injury. ?? MIRELA TINEO MD SYSTEM ID: ??[id number] Narrative 05/15/2024 4:17 PM CDT MR ANGIOGRAM OF THE HEAD WITHOUT CONTRAST ?? 05/15/2024 4:01 PM HISTORY: eb/flow of left sided heaviness, tingling, since yesterday TECHNIQUE: ??3D ekar-cj-sdiptc MR angiogram of the head without contrast. [...] sided heaviness, tingling, since yesterday TECHNIQUE: 3D ezsf-ih-eprnnu MR angiogram of the head without contrast. [...] vascular injury. MIRELA TINEO MD SYSTEM ID: [id number] Delicia Saini APRN [facility] MRI ORDERABLES Fin al Result * NM Lexiscan stress test (nuc card) (05/15/2024 11:19 AM CDT) Pathologist [facility] Target HR 173 RADIANT Baseline Systolic BP [...] wall motion is normal. Christen Peng MD [facility] NM ORDERABLES Final Resul t * Basic metabolic panel (05/15/2024 6:25 AM CDT) Only the most recent of2 resultswithin the time period is included. Sodium 141 135 - 145 mmol/L 05/15/2024 7:26 AM CDT LABORATORY Potassium 4.5 3.4 - 5.3 mmol/L 05/15/2024 7:26 AM T LABORATORY Chloride 106 98 - 107 mmol/L 05/15/2024 7:26 AM [facility] Carbon Dioxide (CO2) 27 22 - 29 mmol/L 05/15/2024 7:26 AM [facility] Anion Gap 8 7 - 15 mmol/L 05/15/2024 7:26 AM [facility] Urea Nitrogen 15.4 6.0 - 20.0 mg/dL 05/15/2024 7:26 AM T LABORATORY Creatinine 0.90 0.51 - 0.95 mg/dL 05/15/2024 7:26 AM T LABORATORY GFR Estimate 79 >60 mL/min/1.7 3m2 05/15/2024 7:26 AM [facility] Comment:eGFR calculated 2020 CKD-EPI equation. Calcium 9.1 8.8 - 10.4 mg/dL 05/15/2024 7:26 AM [facility] Comment:Reference intervals for this test were updated on 03/31/2024 to reflect our healthy population more accurately. There may be differences in the flagging of prior results with similar values performed with this method. Those prior results can be interpreted in the context of the updated reference intervals. Glucose 89 70 - 99 mg/dL 05/15/2024 7:26 AM [facility] Blood STRUCTURE OF RIGHT HAND / Unknown Venipuncture / Unknown 05/15/2024 6:25 AM CDT 05/15/2024 6:57 AM CDT us hCristen Peng MD LAB - BLOOD ORDERABLES Final Result LABORATORY [facility] [address] 1[address] floor, [address] [place] [address], [place] [phone] * EKG Cardiac - HIM Scan (05/14/2024 12:00 AM CDT) 05/14/2024 us Provider Outside ECG ORDERABLES Final Result * [...] of the upper aortic arch through the [place]. This CT angiogram data was [...] of the upper aortic arch through the [place]. This CT angiogram data was [...] agree with the findings. SHANA NIETO MD [facility] 05/10/2024 4:26 PM CDT EXAM: CT HEAD W/O CONTRAST ??05/10/2024 3:39 PM HISTORY: Concern for stroke. ?? COMPARISON: ??CT 02/13/2024, 02/04/2024. MRI 02/13/2024. TECHNIQUE: Using multidetector thin collimation helical acquisition technique, axial, coronal and sagittal CT images from the skull base to the vertex were obtained without intravenous contrast. [employer] Specialist (topogram) image(s) also obtained and reviewed. [...] the vertex were obtained without intravenous contrast. [employer] Specialist (topogram) image(s) also obtained and reviewed. [...] MD Todd Osborn MD IMG CT ORDERABLES Final Result * Troponin T, [...] CDT Todd Osborn MD LAB - BLOOD ORDERABLES Final Re sult U LABORATORY [facility] [address] [facility], [address] [place] [address] * INR (05/10/2024 2:34 PM CDT) INR 0.92 0.85 - 1.15 05/10/2024 2:54 PM CDT [facility] Blood STRUCTURE OF LEFT HAND / Unknown Venipuncture / Unknown 05/10/2024 2:34 PM CDT 05/10/2024 2:38 PM CDT Todd Osborn MD LAB - BLOOD ORDERABLES Final Re sult Performing Organization Address [facility]/ZIP Co de Phone Number U LABORATORY [facility] [address] [facility], [address] * Partial thromboplastin time (05/10/2024 2:34 PM CDT) aPTT 25 22 - 38 Seconds 05/10/2024 2:54 PM CDT U LABORATORY Blood STRUCTURE OF LEFT HAND / Unknown Venipuncture / Unknown 05/10/2024 2:34 PM CDT 05/10/2024 2:38 PM CDT us Todd Osborn MD LAB - BLOOD ORDERABLES Final Re sult Performing Organization Address [facility] Co de Phone Number U LABORATORY [facility] [address] [facility], [facility] [address] * EKG 12-lead, tracing only (05/10/2024 11:25 AM CDT) Systolic Blood Pressure mmHg RADIOLOGY RESULTS Diastolic Blood Pressure mmHg RADIOLOGY RESULTS Ventricular Rate 66 BPM RAD IOLOGY RESULTS Atrial Rate 66 BPM RADIOLOG Y RESULTS ID Interval 162 ms RADIOLOG Y RESULTS QRS Duration 84 ms RADIOLO GY RESULTS QT 378 ms RADIOLOGY RESULTS QTc 396 ms RADIOLOGY RESULTS P [place] 67 degrees RADIOLOGY RESULTS R AXIS 84 degrees RADIOLOGY RESULTS T [place] 34 degrees RADIOLOGY RESULTS Interpretation ECG Sinus rhythm Possible Left atrial enlargement Borderline ECG Unconfirmed report - interpretation of this ECG is computer generated - see medical record for final interpretation Confirmed by - EMERGENCY ROOM, PHYSICIAN ([id number]), editor managing newspaper MAILE STEINER ([id number]) on 05/10/2024 11:53:46 AM RADIOLOGY RESULTS 05/10/2024 11:2 5 AM CDT 05/10/2024 11:53 AM CDT us Todd Osborn MD ECG ORDERABLES Edited Result - Final Performing Organization Address [facility]/ZIP Co de Phone Number RADIOLOGY RESULTS * MA Screen Bilateral w/Mat [...] patient. 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 [address] [place] [address] [employer] * Guarantor: Christopher Ty Account Type Relation to Patient Date of Phone Billing Address Medication Therapy Self 1975 [address] [place] [address] [employer] Advance Directives For more information, please contact: [phone] * Full Code (Latest Code Status on [...] patie nt/ legal decision maker Care Teams Installment Dealer Relationship Specialty Start Date End Date Winston Villatoor OD [facility] [place] [address] [place] [address] PCP - Ophthalmology Ophthalmology 02/11/13 Denise Woodson Ra, APRN FIELD COUNSEL [address] [place] [address] PCP - General Family Practice 09/21/20 Denise Woodson Ra, APRN FIELD COUNSEL [address] [place] [address] Assigned PCP 07/17/20 Usha Simon APRN FIELD COUNSEL 9 [facility] [address] Nurse Practitioner Neurological Surgery 01/24/24 Dangelo Salinas MD [address] [place], [place] [phone] Neurology 01/27/24 Anastasia Stearns, RN Lead Sap Hana Architect 02/06/24 Germaine Lopez, [facility] Community Health Worker Primary Care - CC 02/18/24 Joya Lira [facility] [address] [place] [address] Pharmacist Pharmacist 05/25/24 Joya Lira [facility] [address] [place] [address] Assigned MTM Pharmacist 06/08/24 Fabi Coates MD [address] [place] [address] [address] [place], [place] [phone] Genetics, Clinical 06/18/24 Robin Zepeda MD [address] [facility], [place] [address] Assigned Neuroscience Provider 07/08/24 Danna Cardenas PA-C [address] [place] [address] Assigned Heart and Vascular Provider 07/08/24 Felicita Desai, RN Lead Sap Hana Architect 07/14/24
--- OUTSIDE RECORDS SUMMARY | 2024-07-16 13:51 | XMS_ITS | Encounter Summary ---
Author Organization [facility] Address [address] [place] [address] Care Team Providers Care Urgent Care Physician Name Role Phone ShaunaWinston OD Unavailable [phone] Denise Woodson Ra, APRN JAILOR Unavailable [phone] Denise Woodson Ra, APRN JAILOR Primary Care Provid er Usha Simon APRN JAILOR Unavailable [phone] Dangelo Salinas MD Unavailable Anastasia Stearns RN Unavailable Germaine Lopez [facility] Unavailable [phone] Joya Lira [facility] Unavailable Joya Lira [facility] Unavailable Fabi Coates MD Unavailable [phone] Robin Zepeda MD Unavailable [phone] Danna Cardenas PA-C Unavailable Felicita Desai RN Unavailable Unavailab Encounter Details Date Type Department Care Team (Late st Contact Info) Description 07/16/2024 [facility] Addiction [facility] [address] [place] [address] Arthur Salas, [facility] [address] [place] [address] Social History Tobacco Use Types Packs/Day Years [...] How often do you attend temple or evangelical serv ices? Never 02/28/2024 Do [...] Answer Date Recorded PHQ-2 Score 4 07/16/2024 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 file Not on file Not on file Not on file Not on file Not on file Not on file documented as of this encounter Plan of Treatment Upcoming Encounters Date Type Department Care Team (Late st Contact Info) Description 07/20/2024 12:00 PM DENIER CONTROL OPERATOR Virtual Visit [facility] [address] [place] [phone] Denise Woodson Ra, CHANGE CONTROL MANAGER JAILOR [address] [place] [address] 07/30/2024 8:30 AM DENIER CONTROL OPERATOR Virtual Visit [facility] Neurology Clinic [address] [phone] Randy Maradiaga DO [address] [place] [address] 08/04/2024 12:00 PM DENIER CONTROL OPERATOR Virtual Visit [facility] Mental Health and Addiction Clinic [address] [place] [address] Arthur Salas, [address] [address] 08/04/2024 3:30 PM DENIER CONTROL OPERATOR Virtual Visit [facility] [address] [place] [phone] Denise Woodson Ra, CHANGE CONTROL MANAGER [facility] [address] [place] [address] 08/07/2024 1:00 PM DENIER CONTROL OPERATOR Appointment [facility] Heart Care [address] [facility] [address] [place] [phone] Danna Cardenas PA-C [address] [place], [place] [address] 08/10/2024 12:30 PM DENIER CONTROL OPERATOR Virtual Visit [facility] Clinic Neuropsychology [place] [address] [phone] Robin Zepeda MD [address] [place] [address] [place] [address] 08/17/2024 12:30 PM DENIER CONTROL OPERATOR Office Visit [facility] Neuropsychology [address] [phone] Robin Zepeda MD [address] [facility] AV[address]256II [place] [address] Tulio Ogden, PhD [address] [address] 09/04/2024 11:00 AM DENIER CONTROL OPERATOR Office Visit [facility] [address] [place] [phone] Denise Woodson Ra, CHANGE CONTROL MANAGER JAILOR [address] [place], [place] [phone] 09/18/2024 1:00 PM DENIER CONTROL OPERATOR Office Visit [facility] [address] [place] [phone] Denise Woodson Ra, CHANGE CONTROL MANAGER JAILOR [address] [place], [place] [phone] 09/29/2024 9:00 AM DENIER CONTROL OPERATOR Virtual Visit [facility] Neurology [address] [place] [phone] Randy Maradiaga DO [address] [place] [address] 10/09/2024 1:20 PM DENIER CONTROL OPERATOR Office Visit [facility] Heart [facility] [address] [facility] [address] [place] [phone] Danan Cardenas PA-C [address] [place] [address] 10/30/2024 4:00 PM DENIER CONTROL OPERATOR Virtual Visit [facility] Vascular [facility] 6[address] [facility] [address] [facility] [place] [phone] Lisa Zambrano MD [address] [place] , [place] [phone] 12/29/2024 12:45 PM CDT Office Visit [facility] Pediatric Specialty Clinic [address] [place] [phone] Fabi Coates MD [address] [address] 12/29/2024 1:45 PM CDT Office Visit [facility] Pediatric Specialty [address] [phone] Fabi Coates MD [address] [place] [address] 06/01/2025 11:15 AM CDT Appointment [facility] [address] [facility] [address] [place] [address] Robin Zepeda MD [address] [place] [phone] 06/04/2025 11:00 AM CDT Office Visit [facility] Neurosurgery [address] 3rd [place] [phone] Robin Zepeda MD [address] [place] [phone] Usha Simon APRN [address] [id number] documented as of this encounter Goals Goal Patient Goal Type Associated Problems Recent Progress Patient-Stated? Author I would like additional resources and support to manage my health and prevent future avoidable ED visits/hospital admissions Care Plan Increased risk of re-admission 30%( 2:50 PM CDT) Anastasia Talamantes, RN Note: Barriers: diagnosis of multiple, chronic, complex medical conditions, provider availability - wait time to complete appointments, etc. Strengths: motivated, engaged in care coordination Patient expressed understanding of goal: yes Action steps to achieve this goal: 1. I will follow up with my providers as scheduled/recommended - Mental Health weekly - PT, OT and HEALTHCARE RECRUITER, continuing through [facility]: - Continue following up with PCP: 09/04/2024 - Vascular Dr. Zambrano 05/01/24 - follow up recommended in 6 months: 11/11/24 TBD #[phone]. - call independently - MTM 05/25/2024, completed - Neurosurgery Dr. Zepeda, following up with CONTACT LENS FLASHING PUNCHER: 06/04/2025 11:00 AM (Arrive by 10:45 AM) Usha Simon, CHANGE CONTROL MANAGER JAILOR 2. I will take my medications as prescribed. 3. I will discuss, review, schedule and complete recommended overdue health maintenance with my Primary Care Provider. 4. I will contact my care team with questions, concerns, support needs. I will use the clinic as a resource and I understand I can contact my clinic with 24/7 after hours services available. Dopeman will remain available as needed. documented as of this encounter Visit Diagnoses Not on filedocumented in this encounter Additional Health Concerns Active Problems Noted Date Diagnosed Date Increased risk of re-admission 02/18/2024 Assessment Noted Time PHQ-9 Depression Total Score: 14 024 11:46 AM CDT documented as of this encounter Care Teams Urgent Care Physician Relationship Specialty Start Date End Date Winston Villatoro OD [facility] [address] [facility] [address] [place] [address] PCP - Ophthalmology Ophthalmology 02/11/13 Denise Woodson Ra, CHANGE CONTROL MANAGER JAILOR [address] [place] [address] PCP - General Family Practice 09/21/20 Denise Woodson Ra, APRN JAILOR [address] [place] [address] Assigned PCP 07/17/20 Usha Simon APRN JAILOR [address] [place] [phone] Nurse Practitioner Neurological Surgery 01/24/24 Dangelo Salinas MD [address] [facility] 200 [place], [place] [phone] Neurology 01/27/24 Anastasia Stearns, RN Lead Dopeman 02/06/24 Germaine Lopez, W Community Health Worker Primary Care - CC 02/18/24 Joya Lira RPH [address] [place] [address] Pharmacist Pharmacist 05/25/24 Joya Lira RPH [address] [place], [place] [phone] Assigned MTM Pharmacist 06/08/24 Fabi Coates MD [address] [place] [address] 75 [place], [place] [phone] Genetics, Clinical 06/18/24 Robin Zepeda MD [address] [place] [phone] Assigned Neuroscience Provider 07/08/24 Danna Cardenas PA-C [address] [place] [address] Assigned Heart and Vascular Provider 07/08/24 Felicita Desai, RN Lead Dopeman 07/14/24 documented as of this encounter
--- OUTSIDE RECORDS SUMMARY | 2024-07-16 13:51 | XMS_ITS | Encounter Summary ---
Author Organization [place] Address [address] [place] [address] Care Team Providers Care Plate Molder Name Role Phone Winston Villatoro OD Unavailable Denise Woodson Ra, APRN SERVICE OBSERVER Unavailable Denise Woodson Ra, APRN SERVICE OBSERVER Primary Care Provid er Usha Simon APRN SERVICE OBSERVER Unavailable [phone] Dangelo Salinas MD Unavailable Anastasia Stearns RN Unavailable Germaine Lopez CH Unavailable Joya Lira [facility] Unavailable Joya Lira [facility] Unavailable Fabi Coates MD Unavailable [phone] Robin Zepeda MD Unavailable Danna Cardenas PA-C Unavailable Encounter Details Date Type Department Care Team (Late st Contact Info) Description 07/12/2024 Telephone [facility] Services - Neuroscience Service Line [facility] [place] [address] Sameer Tracy MD [address] [place] [address] Social History Tobacco Use Types Packs/Day [...] often do you attend latter day or church serv ices? 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 Beaulieu in [place] [facility] who reported that Alcon Zamora was presenting with worsening right hemiparesis. Alcon Zamora is a(n) 48 year old female with Lizy Danlos, MDD, and a cerebral vascular malformation who had a diagnostic angiogram at [facility] that was complicated by perioprocedural stroke. Since that time she has had episodes of recurrent neurological deficits (felt to be recrudescence and/or related to post-stroke fatigue) and a seizure (on Keppra). She currently is seen by Neurology and NSGY within [facility]. Recommendations: 1. Based upon her history and symptoms, we recommend ED to ED transfer for a Brain MRI this eveningto triage and determine additional cares. Sameer Tracy MD, MS Vascular Neurology To page me or covering stroke neurology steam press operator, click here: AMCOM Choose Mark Up Designer tab at top, then search dropdown box for Neurology Adult, select location, pressEnter, then look for stroke/neuro ICU/telestroke. documented in this encounter Plan of Treatment Upcoming Encounters Date Type Department Care Team (Late st Contact Info) Description 07/20/2024 12:00 PM CLIENT SERVER PROGRAMMER Virtual Visit [facility] [address] [place] [phone] Denise Woodson Ra, SUPERVISOR SMALL APPLIANCE ASSEMBLY SERVICE OBSERVER [address] [place] [address] 07/30/2024 8:30 AM CLIENT SERVER PROGRAMMER Virtual Visit [facility] Neurology Clinic [address] 3rd [place] [phone] Randy Maradiaga, [address] [address] 08/04/2024 12:00 PM CLIENT SERVER PROGRAMMER Virtual Visit [facility] Mental Health and Addiction Clinic [address] [place] [address] Arthur Salas [address] [address] 08/04/2024 3:30 PM CLIENT SERVER PROGRAMMER Virtual Visit [facility] [address] [place] [phone] Denise Woodson Ra, SUPERVISOR SMALL APPLIANCE ASSEMBLY SERVICE OBSERVER [address] [facility] [place] [id number] 08/07/2024 1:00 PM CLIENT SERVER PROGRAMMER Appointment [facility] Heart Care [address] [facility] [address] [place] [phone] Danna Cardenas PA-C [address] [place] [address] 08/10/2024 12:30 PM CLIENT SERVER PROGRAMMER Virtual Visit [facility] Neuropsychology [address] [phone] Robin Zepeda MD [address] [place] [address] 08/17/2024 12:30 PM CLIENT SERVER PROGRAMMER Office Visit [facility] Neuropsychology [address] [phone] Robin Zepeda MD [address] [place] [address] Tulio Ogden, PhD [address] [address] 09/04/2024 11:00 AM CLIENT SERVER PROGRAMMER [facility] [address] [place] [phone] Denise Woodson Ra, SUPERVISOR SMALL APPLIANCE ASSEMBLY SERVICE OBSERVER [address] [place], [place] [phone] 09/18/2024 1:00 PM CLIENT SERVER PROGRAMMER [facility] [address] [place] [phone] Denise Woodson Ra, SUPERVISOR SMALL APPLIANCE ASSEMBLY SERVICE OBSERVER [address] [place] [address] 09/29/2024 9:00 AM CLIENT SERVER PROGRAMMER Virtual Visit [facility] Neurology [facility] [address] [facility] 3rd [place] [phone] Randy Maradiaga, [address] [phone] 10/09/2024 1:20 PM CLIENT SERVER PROGRAMMER Office Visit [facility] Heart [facility] [address] [facility] [address] [place] [phone] Danna Cardenas PA-C 6[address] [place], [place] [address] 10/30/2024 4:00 PM CLIENT SERVER PROGRAMMER Virtual Visit [facility] Vascular [place] [address] [place] [phone] Lisa Zambrano MD [address] [place], [place] [address] 12/29/2024 12:45 PM CDT Office Visit [facility] [address] [place] [address] Ave [address] [phone] Fabi Coates MD [address] [place] [address] 12/29/2024 1:45 PM CDT Office Visit [facility] Pediatric Specialty Clinic [address] [place], [place] [address]e Explorer [address] [phone] Fabi Coates MD [address] [place] [address] 06/01/2025 11:15 AM CDT Appointment [facility] Imaging [address] [place] [address] Robin Zepeda MD [address] [place] [address] 06/04/2025 11:00 AM CDT Office Visit [facility] Neurosurgery Clinic [address] 3rd [place] [phone] Robin Zepeda MD [address] [place] [address] Usha Simon APRN SERVICE OBSERVER [address] [place] [address]235 documented as of this encounter Goals Goal [...] Mental Health weekly - PT, OT and PHILOSOPHY SPECIALIST, continuing through [facility] [place]: - Continue following up with PCP: 09/04/2024 - Vascular Dr. Zambrano 05/01/24 - follow up recommended in 6 months: 11/11/24 TBD #[phone]. - call independently - MTM 05/25/2024, completed - Neurosurgery Dr. Zepeda, following up with BELT CHANGER: 06/04/2025 11:00 AM (Arrive by 10:45 AM) [...] clinic with 24/7 after hours services available. Loan Officer Assistant will remain available as needed. documented as of this encounter Visit Diagnoses Not on filedocumented in this encounter Additional Health Concerns Active Problems Noted Date Diagnosed Date Increased risk of re-admission 02/18/2024 Assessment Noted Time PHQ-9 Depression Total Score: 5 03/17/20 24 9:45 AM CDT documented as of this encounter Care Teams Plate Molder Relationship Specialty Start Date End Date Winston Villatoro OD [facility] [address] [facility] [address] [place] [address] PCP - Ophthalmology Ophthalmology 02/11/13 Denise Woodson Ra, APRN SERVICE OBSERVER [address] [place] [address] PCP - General Family Practice 09/21/20 Denise Woodson Ra, APRN SERVICE OBSERVER [address] [place] [address] Assigned PCP 07/17/20 Usha Simon APRN SERVICE OBSERVER 9[address] [facility]121[address]J [place] [address] Nurse Practitioner Neurological Surgery 01/24/24 Dangelo Salinas MD [address] [place] [address] Neurology 01/27/24 Anastasia Stearns, RN Lead Loan Officer Assistant 02/06/24 Germaine Lopez, W Community Health Worker Primary Care - CC 02/18/24 Joya Lira [facility] [address] [place] [address] Pharmacist Pharmacist 05/25/24 Joya Lira [facility] [address] [place] [address] Assigned MTM Pharmacist 06/08/24 Fabi Coates MD 420 [facility] [address] [place] [address] Genetics, Clinical 06/18/24 Robin Zepeda MD [address] [facility] [id number] [place], [place] 2157[address] Assigned Neuroscience Provider 07/08/24 Danna Cardenas PA-C [address] [place] [address] Assigned Heart and Vascular Provider 07/08/24 documented as of this encounter
--- OUTSIDE RECORDS SUMMARY | 2024-07-16 13:51 | XMS_ITS | Encounter Summary ---
Author Organization [place] Address [address] [place] [address] Care Team Providers Care Electrical Logging Engineer Name Role Phone Winston Villatoro OD Unavailable Denise Woodson Ra, APRN CONSUMER STUDIES PROFESSOR Unavailable [phone] Denise Woodson Ra, APRN CONSUMER STUDIES PROFESSOR Primary Care Provid er Usha Simon APRN CONSUMER STUDIES PROFESSOR Unavailable [phone] Dangelo Salinas MD Unavailable Anastasia Stearns RN Unavailable [phone] Germaine Lopez [facility] Unavailable [phone] Joya Lira [facility] Unavailable Joya Lira [facility] Unavailable Fabi Coates MD Unavailable [phone] Robin Zepeda MD Unavailable [phone] Danna Cardenas PA-C Unavailable [phone] Encounter Details Date Type Department Care Team (Latest Contact Info) Description 07/12/2024 Travel Social History Tobacco Use Types Packs/Day [...] How often do you attend restorationism or faith serv ices? 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 Not on file Not on file Not on file Not on file Not on file Not on file documented as of this encounter Plan of Treatment Upcoming Encounters Date Type Department Care Team (Late st Contact Info) Description 07/20/2024 12:00 PM MATERIAL HANDLING TECHNICIAN Virtual Visit [facility] [address] [place] [address] Denise Woodson Ra, FORM SETTER SUPERVISOR CONSUMER STUDIES PROFESSOR [address] [place], [place] [phone] 07/30/2024 8:30 AM MATERIAL HANDLING TECHNICIAN Virtual Visit [facility] Neurology Clinic [address] [address] Randy Maradiaga, [address] [place] [address] 08/04/2024 12:00 PM MATERIAL HANDLING TECHNICIAN Virtual Visit [facility] Mental Health and Addiction Clinic [place] [address] [place] [address] SarmadledyLorrieabilio, [facility] [address] [place] [address] 08/04/2024 3:30 PM MATERIAL HANDLING TECHNICIAN Virtual Visit [facility] [address] [place] [phone] Denise Woodson Ra, FORM SETTER SUPERVISOR CONSUMER STUDIES PROFESSOR [address] [place], [place] [phone] 08/07/2024 1:00 PM MATERIAL HANDLING TECHNICIAN Appointment [facility] Heart Care [address] [facility] [address] [place] [phone] Danna Cardenas, PA-C 6405 [place] [address] 08/10/2024 12:30 PM MATERIAL HANDLING TECHNICIAN Virtual Visit [facility] Neuropsychology [address] [phone] Robin Zepeda MD [address] [place] [address] 08/17/2024 12:30 PM MATERIAL HANDLING TECHNICIAN Office Visit [facility] Neuropsychology [address] [phone] Robin Zepeda MD [address] [place] [address] Tulio Ogden, PhD [address] [address] 09/04/2024 11:00 AM MATERIAL HANDLING TECHNICIAN [facility] [address] [place] [phone] Denise Woodson Ra, FORM SETTER SUPERVISOR CONSUMER STUDIES PROFESSOR [address] [facility] [place] [phone] 09/18/2024 1:00 PM MATERIAL HANDLING TECHNICIAN [facility] [address] [place] [phone] Denise Woodson Ra, FORM SETTER SUPERVISOR CONSUMER STUDIES PROFESSOR [address] [facility] [place], [place] [phone] 09/29/2024 9:00 AM MATERIAL HANDLING TECHNICIAN Virtual Visit [facility] Neurology [address] [phone] Randy Maradiaga, [address] [address] 10/09/2024 1:20 PM MATERIAL HANDLING TECHNICIAN Office Visit [facility] Heart [facility] [address] [facility] [address] [place] [phone] Danna Cardenas PA-C 6405 [place] [address] 10/30/2024 4:00 PM MATERIAL HANDLING TECHNICIAN Virtual Visit [facility] Vascular [facility] [address] [place] [phone] Lisa Zambrano MD [address] [place] [address] 12/29/2024 12:45 PM CDT Office Visit [facility] [address],[place] [phone] Fabi Coates MD [address] [address] 12/29/2024 1:45 PM CDT Office Visit [facility] 2450 [facility] [address],[place] [phone] Fabi Coates MD [address] [address] 06/01/2025 11:15 AM CDT Appointment [facility] Imaging [address] [place] [phone] Robin Zepeda MD [address] [place] [address] 06/04/2025 11:00 AM CDT Office Visit [facility] Neurosurgery Clinic [address] 3rd [place] [phone] Robin Zepeda MD [address] [place] [address] Usha Simon APRN [address] [address] documented as of this encounter Goals Goal [...] Mental Health weekly - PT, OT and GUSSET EDGER, continuing through [facility] [place]: - Continue following up with PCP: 09/04/2024 - Vascular Dr. Zambrano 05/01/24 - follow up recommended in 6 months: 11/11/24 D #[phone]. - call independently - MTM 05/25/2024, completed - Neurosurgery Dr. Zepeda, following up with SUPERVISOR FILES: 06/04/2025 11:00 AM (Arrive by 10:45 AM) [...] clinic with / after hours services available. Senior Qa Analyst will remain available as needed. documented as of this encounter Visit Diagnoses Not on filedocumented in this encounter Additional Health Concerns Active Problems Noted Date Diagnosed Date Increased risk of re-admission 02/18/2024 Assessment Noted Time PHQ-9 Depression Total Score: 5 03/17/20 24 9:45 AM CDT documented as of this encounter Care Teams Electrical Logging Engineer Relationship Specialty Start Date End Date Winston Villatoro OD [facility] [address] [facility] [address] [place] [address] PCP - Ophthalmology Ophthalmology 02/11/13 Denise Woodson Ra, APRN CONSUMER STUDIES PROFESSOR [address] [place] [address] PCP - General Family Practice 09/21/20 Denise Woodson Ra, APRN CONSUMER STUDIES PROFESSOR [address] [place] [address] Assigned PCP 07/17/20 Usha Simon APRN CONSUMER STUDIES PROFESSOR [address] [address]78[address] Nurse Practitioner Neurological Surgery 01/24/24 Dangelo Salinas MD [address] [place] [address] Neurology 01/27/24 Anastasia Stearns, RN Lead Senior Qa Analyst 02/06/24 Germaine Lopez, W Community Health Worker Primary Care - CC 02/18/24 Joya Lira [facility] [address] [place], [place] [phone] Pharmacist Pharmacist 05/25/24 Joya Lira [facility] [address] [place], [place] [phone] Assigned MTM Pharmacist 06/08/24 Fabi Coates MD [address] [place] [address] [address] [facility] 75 [place], [place] [address] Genetics, Clinical 06/18/24 Robin Zepeda MD [address] [address] Assigned Neuroscience Provider 07/08/24 Danna Cardenas PA-C [address] [facility] [place] [address] Assigned Heart and Vascular Provider 07/08/24 documented as of this encounter
--- OUTSIDE RECORDS SUMMARY | 2024-07-16 13:51 | XMS_ITS | Encounter Summary ---
Author Organization [facility] Address [address] [place] [id number] Care Team Providers Care Business Continuity Planner Name Role Phone ShaunaWinston OD Unavailable Denise Woodson Ra, APRN DRYWALL FINISHER Unavailable Denise Woodson Ra, APRN DRYWALL FINISHER Primary Care Provid er Usha Simon APRN DRYWALL FINISHER Unavailable [phone] Dangelo Salinas MD Unavailable Anastasia Stearns RN Unavailable Germaine Lopez [facility] Unavailable Joya Lira [facility] Unavailable Joya Lira [facility] Unavailable Fabi Coates MD Unavailable [phone] Robin Zepeda MD Unavailable Danna Cardenas PA-C Unavailable Felicita Desai RN Unavailable Unavailab Encounter Details Date Type Department Care Team (Late st Contact Info) Description 07/15/[address] [facility] [address] 3rd [place] [address] Robin Zepeda MD [address] [place] [address] [id number] [place], [place] [address] Social History Tobacco Use Types [...] How often do you attend religion or zoroastrian serv ices? Never 02/28/2024 Do [...] Answer Date Recorded PHQ-2 Score 4 07/16/2024 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 [address] [phone] Randy Maradiaga DO [address] [place] [address] 08/04/2024 12:00 PM NECKTIE TURNER Virtual Visit [facility] [address] [place] [address] Arthur Salas, [address] [address] 08/04/2024 3:30 PM NECKTIE TURNER Virtual Visit [facility] [address] [place] [phone] Denise Woodson Ra, WASTE WATER OR WATER PLANT OPERATOR [facility] [address] [place] [address] 08/07/2024 1:00 PM [address] T[address]NER [facility]oint[address] [facility] Heart Care [facility] [address] [place] [phone] Danna Cardenas, PA-C [address] [place], [place] [phone] 08/10/2024 12:30 PM NECKTIE TURNER Virtual Visit [facility] Neuropsychology [place] [address] [phone] Robin Zepeda MD [address] [place] [address] [id number] [place] [address] 08/17/2024 12:30 PM NECKTIE TURNER Office Visit [facility] Neuropsychology [address] [phone] Robin Zepeda MD [address] [facility] [id number] [place] [address] Tulio Ogden, PhD [address] [address] 09/04/2024 11:00 AM NECKTIE TURNER Office Visit [facility] [address] [place] [phone] Denise Woodson Ra, WASTE WATER OR WATER PLANT OPERATOR DRYWALL FINISHER [address] [place], [place] [phone] 09/18/2024 1:00 PM NECKTIE TURNER Office Visit [facility] [address] [place] [phone] Denise Woodson Ra, WASTE WATER OR WATER PLANT OPERATOR DRYWALL FINISHER [address] [place], [place] [phone] 09/29/2024 9:00 AM NECKTIE TURNER Virtual Visit [facility] Neurology [address] [place] [phone] Randy Maradiaga DO [address] [place] [address] 10/09/2024 1:20 PM NECKTIE TURNER Office Visit [facility] Heart [facility] [address] [facility] [address] [place] [phone] Danna Cardenas PA-C [address] [place], [place] [address] 10/30/2024 4:00 PM NECKTIE TURNER Virtual Visit [facility] Vascular [facility] [address] [facility] Berta SV[place] [facility] [place] [phone] Lisa Zambrano MD [address] [place], [place] [address] 12/29/2024 12:45 PM CDT Office Visit [facility] [address] [place] [phone] Fabi Coates MD [address] 967[address] 12/29/2024 1:45 PM CDT Office Visit [facility] Pediatric Specialty [address] [phone] Fabi Coates MD [address] [place] [id number] 06/01/2025 11:15 AM CDT Appointment [facility] Imaging [address] [facility] [address] [place] [address] Robin Zepeda MD [address] [place] [phone] 06/04/2025 11:00 AM CDT Office Visit [facility] Neurosurgery [address] 3rd [place] [phone] Robin Zepeda MD [address] [place] [address] Usha Simon APRN DRYWALL FINISHER [address] [place] [address] documented as of this encounter Goals Goal [...] Mental Health weekly - PT, OT and BINDERY LIBRARY TECHNICAL ASSISTANT, continuing through Rehabilitation Services Axis: - Continue following up with PCP: 09/04/2024 - Vascular Dr. Zambrano 05/01/24 - follow up recommended in 6 months: 11/11/24 TBD #[phone]. - call independently - MTM 05/25/2024, completed - Neurosurgery Dr. Zepeda, following up with EXHIBIT CARPENTER: 06/04/2025 11:00 AM (Arrive by 10:45 AM) Usha Simon, WASTE WATER OR WATER PLANT OPERATOR DRYWALL FINISHER 2. I will take my medications as prescribed. 3. I will discuss, review, schedule and complete recommended overdue health maintenance with my Primary Care Provider. 4. I will contact my care team with questions, concerns, support needs. I will use the clinic as a resource and I understand I can contact my clinic with 24/7 after hours services available. Precision Agronomist will remain available as needed. documented as of this encounter Visit Diagnoses Not on filedocumented in this encounter Additional Health Concerns Active Problems Noted Date Diagnosed Date Increased risk of re-admission 02/18/2024 Assessment Noted Time PHQ-9 Depression Total Score: 14 024 11:46 AM CDT documented as of this encounter Care Teams Business Continuity Planner Relationship Specialty Start Date End Date Winston Villatoro OD [facility] [address] [facility] [address] [place] [address] PCP - Ophthalmology Ophthalmology 02/11/13 Denise Woodson Ra, WASTE WATER OR WATER PLANT OPERATOR DRYWALL FINISHER [address] [place] [address] PCP - General Family Practice 09/21/20 Denise Woodson Ra, APRN DRYWALL FINISHER [address] [place] [address] Assigned PCP 07/17/20 Usha Simon APRN DRYWALL FINISHER [address] [place] [address] [phone] Nurse Practitioner Neurological Surgery 01/24/24 Dangelo Salinas MD [address] [facility] [address] [place], [place] [phone] Neurology 01/27/24 Anastasia Stearns, RN Lead [employer] A[employer]ist 02/06/24 Germaine Lopez, W Community Health Worker Primary Care - CC 02/18/24 Joya Lira RPH [address] [place] [address] Pharmacist Pharmacist 05/25/24 Joya Lira RPH [address] [place] [address] Assigned MTM Pharmacist 06/08/24 Fabi Coates MD [address] [place] [address] [address] [place], [place] [phone] Genetics, Clinical 06/18/24 Robin Zepeda MD [address] [place] [address] [phone] Assigned Neuroscience Provider 07/08/24 Danna Cardenas PA-C [address] [place] [address] Assigned Heart and Vascular Provider 07/08/24 Felicita Desai, RN Lead [employer] A[employer]ist 07/14/24 documented as of this encounter
--- OUTSIDE RECORDS SUMMARY | 2024-07-16 13:51 | XMS_ITS | Encounter Summary ---
Author Organization [facility] Address [address] [place] [id number] Care Team Providers Care Publishing Systems Analyst Name Role Phone Winston Villatoro Se OD Unavailable [phone] Denise Woodson Ra, APRN WRAPPER SELECTOR Unavailable [phone] Denise Woodson Ra, APRN WRAPPER SELECTOR Primary Care Provid er Usha Simon APRN WRAPPER SELECTOR Unavailable [phone] Dangelo Salinas MD Unavailable Anastasia Stearns RN Unavailable [phone] Germanie Lopez CH Unavailable [phone] Joya Lira [facility] Unavailable Joya Lira [facility] Unavailable Fabi Coates MD Unavailable [phone] Robin Zepeda MD Unavailable [phone] Danna Cardenas PA-C Unavailable Reason for Referral * Consultation (Routine: Next available opening) - Pending Review Specialty Diagnoses / Procedures Referred By Nila t Referred To Contact Diagnoses Seizure-like activity (H) Stevo Islas MD [address] [place] [address] Phone: tel: fax: Referral ID Status Reason Start Date Expiration Date V isits Requested Visits Authorized [id number] Pending Review 07/13/2024 07/13/2025 1 1 Question Answer Reason for Referral: General Neurology Patient Scheduling Instructions: [facility] will call you to coordinate your care as prescribed by your provider. If you don't hear from a technology sales representative within 2 business days, please call . Additional Information: R sided numbness/tinglinfg Comments Please be aware that coverage of these services is subject to the terms and limitations of your health insurance plan. Call member services at your health plan with any benefit or coverage questions. [employer] [facility] will call you to coordinate your care as prescribed by your provider. If you don't hear from a technology sales representative within 2 business days, please call . * Mental Health Outpatient (Routine: Next available opening) - Pending Review Specialty Diagnoses / Procedures Referred By Nila shah Referred To Contact Behavioral Health Diagnoses Anxiety Azra Curtis, HAYDEN [address] [place] [address] Phone: tel: fax: Referral ID Status Reason Start Date Expiration Date V isits Requested Visits Authorized [id number] Pending Review 07/13/2024 07/13/2025 1 1 Question Answer Services: Psychotherapy/Counseling (non-medication) Reason for Referral: Individual Psychotherapy/Counseling Patient Scheduling Instructions: [employer] [facility] will call you to coordinate your care as prescribed by your provider. If you don't hear from a technology sales representative within 2 business days, please [...] plan with any benefit or coverage questions. [facility] will call you to coordinate your care as prescribed by your provider. If you don't hear from a technology sales representative within 2 business days, please call . Reason for Visit * Reason Comments Neurologic Problem * Auth/Cert (Routine) Specialty Diagnoses / Procedures Referred By Nila shah Referred To Contact Med Surg Diagnoses Right sided numbness Right sided numbness [facility] [address] [place] [address] Phone: tel: Referral ID Status Reason Start Date Expiration Date Visits Re quested Visits Authorized [id number] 1 1 Encounter Details Date Type Department Care Team (Late st Contact Info) Description 07/12/2024 10:32 PM CDT - 07/13/2024 6:19 PM CDT Emergency [facility] [address] [place] [address] Rocio Ann MD [address] [place] [id number] Robin Steiner DO [address] [facility] [place], [place] [id number] Morgan Morales MD [address] [place] [address] Anxiety (Primary Dx); Right sided numbness; Cerebrovascular accident (CVA), unspecified mechanism (H); Seizure-like activity (H) Discharge Disposition: Home or Self Care Social [...] How often do you attend episcopalian or yazidi serv ices? 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 Not on file Not on file Not [...] Mass Index 32.65 07/13/2024 4:51 AM CDT documented in this encounter Discharge Summaries * Azra Curtis PA-C - 07/13/2024 5:53 PM CDT [facility] Hospitalist Discharge Summary Date of Admission: 07/12/2024 Date of Discharge: 07/13/2024 Discharging Provider: Azra Curtis PA-C Discharge Service: Hospitalist Service Discharge Diagnoses Right sided weakness and paresthesias, ?TIA History of CVA 12/2023 Seizure disorder 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 as calculated from the following: Height as of this encounter: 1.727 m (5' 8). Weight as of this encounter: 97.4 kg (214 lb 11.2 oz). Follow-ups Needed After Discharge Follow-up Appointments Follow-up and recommended labs and tests Follow up with primary care provider, Denise Woodson, within 7 days for hospital follow- up. Nofollow up labs or test are needed. Follow up with neurology at next available appointment Follow up with psychiatry at next available appointment Unresulted Labs Ordered in the Past 30 Days of this Admission No orders found for last 31 day(s). Discharge Disposition Discharged to home Condition at discharge: Stable Hospital Course Christopher Ty is a 48 year old female with PMH of fibromyalgia, MONAE, hx CVA, EDS, L-sigmoid dural AVF, seizure disorder who was admitted on 07/12/2024 for possible TIA. Right sided weakness and paresthesias, ?TIA History of CVA 12/2023 *Patient had an angiogram 12/2023 which led to multiple luis-procedural strokes, with angiogram showing R-iCA dissection and findings suggestive for FMD. *Follows with neurology, see note from 07/02/24. 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 She dropped her work hours down but still had these issues present. She was hospitalized at [facility] in 05/2024 for chest pain evaluation, complicated by L sidedweakness with negative stroke workup and recurrence of pulsatile tinnitus/pounding YANG in the setting of sigmoid dural AV fistula. *Presented to [facility] ED 07/12 with right hand and foot paresthesias, nausea, difficulty swallowing, fatigue, unsteadiness, since 1800. Developed headache while in the ED. CT head and CTA head andneck unremarkable. MR brain terminated early (patient had whole body shaking but was alert and conversant throughout episode) and thus limited study, but NAD. - Continue CHICKEN SEXER Aspirin - Attending MD recommended switching to Atorvastatin given LDL still >100 - Repeat echocardiogram unremarkable - STABLE HAND note mild dysphagia, ok for regular solids/thin liquids - PT recommend continuing outpatient PT - No events on telemetry - Has referral in place for neuropsychology testing given her ongoing cognitive issues - Seen by neuro who felt her current symptoms were less likely to be of neurovascular etiology, patient would benefit from optimal multidisciplinary outpatient care and especially psychiatry therapy.She was referred to therapy and restarted on low dose Celexa (see below) Seizure disorder *She had one single GTC following her stroke in 11/2023 as well as other non- convulsive and non-stereotyped events in 01/2024 of unclear nature. *She had worsened behavior on Keppra and so she was switched to Oxcarbazepine in May while staying on low dose Keppra. She continued to have fatigue, pressure in the back of her head, sweatiness and stopped Oxcarbazepine with some improvement. 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 - Continue OP Neurosurgery follow up, MRA brain in 1 year Subclinical hypothyroidism *TSH 9.38, previously 3.87 four months ago. Free T4 is WNL at 1.19. - Repeat thyroid studies as outpatient in 6-8 weeks Fibromyalgia Depression Anxiety Insomnia - Restart Celexa 5 mg daily, low dose given she is also on Trazodone. Reports she responded to thisin the past. - Continue CHICKEN SEXER Ativan PRN - Outpatient follow up with PCP - Referred for CBT COPD - Can resume CHICKEN SEXER inhaler at discharge Ehler's danlos syndrome *Noted Consultations This Hospital Stay SPEECH LAUNDRY OPERATOR WASH ROOM ADULT IP CONSULT SMOKING CESSATION PROGRAM IP CONSULT NEUROLOGY IP STROKE CONSULT PHYSICAL THERAPY ADULT IP CONSULT Code Status Full Code Time Spent on this Encounter Azra Dillon PA-C, personally saw the patient today and spent greater than 30 minutes discharging this patient. Azra Curtis PA-C [facility] EXTENDED RECOVERY AND SHORT STAY [address] [place] [id number] Physical Exam Vital Signs: Temp: 99.3 ??F (37.4 ??C) Temp src: Oral BP: 135/88 Pulse: 82 Resp: 16 SpO2: 95 % O2 Device: None (Room air) Weight: 214 lbs 11.2 oz Constitutional: Awake, alert, cooperative, no apparent distress. ENT: Normocephalic, without obvious abnormality, atraumatic. Normal sclera. Neck: Supple, symmetrical, trachea midline Pulmonary: No increased work of breathing, good air exchange, clear to auscultation bilaterally Cardiovascular: Regular rate and rhythm GI: Normal bowel sounds, soft, non-distended, non-tender. Skin: Visualized skin appeared clear. Neuro: Oriented x 3. Moves all extremities spontaneously. Strength equal b/l upper and lower extremities, [id number] and [id number] intact, no facial droop or slurred speech. Reports some left visual field impairment. Right hand sensation still not quite baseline. Psych: Normal affect and mood Extremities: Normal muscle tone. No gross deformities noted. Calves non-tender b/l. No pitting edema b/l LE Primary Care Physician Denise Woodson Discharge Orders Adult Mental Health [facility] Referral Follow-up and recommended labs and tests Follow up with primary care provider, Denise Woodson, within 7 days for hospital follow- up. Nofollow up labs or test are needed. Follow up with neurology at next available appointment Follow up with psychiatry at next available appointment Activity Your activity upon discharge: activity as tolerated When to contact your care team Contact your care team for slurred speech, facial droop, new limb numbness or weakness, new onset gait disturbance, new vision changes, or any other new or worsening problems Reason for your hospital stay You were hospitalized for evaluation of right sided paresthesias and slight weakness. Your stroke workup was negative, echocardiogram normal. Stroke team recommends you follow up with neurology as outpatient. We restarted you on Celexa and have referred you for psychotherapy, follow up with PCP forongoing medication management. Your LDL is just above goal therefore we will switch you to a low dose of Atorvastatin 10 mg daily. Diet Follow this diet upon discharge: Current Diet:Orders Placed This Encounter Combination Diet Regular Diet Significant Results and Procedures Results for orders placed or performed during the hospital encounter of 07/12/24 MR Brain w/o Contrast Narrative EXAM: MR BRAIN W/O CONTRAST LOCATION: [facility] DATE: 07/13/2024 INDICATION: right sided numnbess. difficulty swallowing. hx of strokes COMPARISON: MRI brain May 15, 2024. TECHNIQUE: Routine multiplanar multisequence head MRI without intravenous contrast. Impression FINDINGS/IMPRESSION: 1. Only sagittal T1 images and diffusion imaging obtained secondary to patient terminating examination early. No acute infarct. No hydrocephalus. No other gross abnormality identified. Echocardiogram Complete Value LVEF 55% Narrative [id number]^EVER^AZRA^Analy [facility] Echocardi[facility] [address] [place] [address] Name: CHRISTOPHER TY : 1975 Study Date: 07/13/2024 03:16 PM Age: 48 yrs Gender: Female Patient Location: [facility] Reason For Study: TIA Ordering Physician: AZRA CURTIS Performed By: Janna Fenton BSA: 2.1 m2 Height: 68 in Weight: 214 lb HR: 71 BP: 138/92 mmHg Procedure Complete Portable Echo Adult. Definity ([facility] #[id number]) given intravenously. Contrast Definity. Technically difficult study.Extremely [...] approved by: Lauro Renteria 07/13/2024 04:29 PM Discharge Medications Current Discharge Medication List START taking these medications Details atorvastatin (LIPITOR) 10 MG tablet Take 1 tablet (10 mg) by mouth daily. Qty: 30 tablet, Refills: 0 Associated Diagnoses: Cerebrovascular accident (CVA), unspecified mechanism (H) citalopram (CELEXA) 10 MG tablet Take 0.5 tablets (5 mg) by mouth daily. Qty: 30 tablet, Refills: 0 Associated Diagnoses: Anxiety CONTINUE these medications which have NOT CHANGED Details acetaminophen (TYLENOL) 500 MG tablet Take 1-2 tablets (500-1,000 mg) by mouth 3 times daily as needed for mild pain or headaches Associated Diagnoses: Fibromyalgia; Pain of right upper extremity albuterol (PROAIR HFA/PROVENTIL HFA/VENTOLIN HFA) 108 (90 Base) MCG/ACT inhaler Inhale 2 puffs intothe lungs every 4 hours as needed for shortness of breath / dyspnea or wheezing Qty: 1 Inhaler, Refills: 3 Comments: Pharmacy may dispense brand covered by insurance (Proair, or proventil or ventolin or generic albuterol inhaler) Pt will call when needed. Associated Diagnoses: Moderate persistent asthma without complication aspirin 81 MG EC tablet Take 2 tablets (162 mg) by mouth daily. Associated Diagnoses: Cerebrovascular accident (CVA), unspecified mechanism (H) cetirizine (ZYRTEC) 10 MG tablet Take 10 mg by mouth at bedtime. fluticasone-vilanterol (BREO ELLIPTA) 200-25 MCG/ACT inhaler Inhale 1 puff into the lungs daily. Qty: 3 each, Refills: 1 Associated Diagnoses: Moderate persistent asthma without complication levETIRAcetam (KEPPRA) 750 MG tablet Take 1/2 of 750 mg tab BID Qty: 120 tablet, Refills: 2 Associated Diagnoses: History of seizure Lidocaine (LIDOCARE) 4 % Patch Place 1 patch onto the skin daily as needed. To prevent lidocaine toxicity, patient should be patch free for 12 hrs daily. Associated Diagnoses: Pain of right upper extremity; Fibromyalgia LORazepam (ATIVAN) 1 MG tablet Take 1/2-1 tablet daily as needed for onset of dizziness. Qty: 10 tablet, Refills: 0 Associated Diagnoses: History of seizure MAGNESIUM PO Take 1 tablet by mouth at bedtime. methyl salicylate-menthol (ICY HOT) ointment Apply topically every 6 hours as needed (pain) Associated Diagnoses: Fibromyalgia; Pain of right upper extremity oxyCODONE (ROXICODONE) 5 MG tablet Take 0.5 tablets (2.5 mg) by mouth every 4 hours as needed for moderate to severe pain. Qty: 10 tablet, Refills: 0 Associated Diagnoses: Cerebrovascular accident (CVA), unspecified mechanism (H) psyllium (METAMUCIL) 28.3 % packet Take 1 packet by mouth daily senna-docusate (SENOKOT-S/PERICOLACE) 8.6-50 MG tablet Take 2 tablets by mouth 2 times daily as needed for constipation Associated Diagnoses: Other constipation traZODone (DESYREL) 100 MG tablet Take 100 mg by mouth at bedtime. STOP taking these medications rosuvastatin (CRESTOR) 10 MG tablet Comments: Reason for Stopping: Allergies Allergies Allergen Reactions Codeine GI Disturbance Other Reaction(s): epigastric pain Acetaminophen-Codeine Nausea and Vomiting and Other (See Comments) Mold Dizziness and GI Disturbance Molds & Smuts Dizziness and Nausea Morphine GI Disturbance Pollen Extract Other (See Comments) and Unknown Bupropion GI Disturbance and Other (See Comments) Diarrhea and stomach ache Erythromycin GI Disturbance Cosigned by Morgan Morales MD at 07/14/2024 3:13 PM CDT Associated attestation - Morgan Morales MD - 07/14/2024 3:13 PM CDT Physician Attestation I have reviewed and discussed with the advanced practice provider their discharge plan for Christopher Ty. I did not participate in a shared visit by interviewing or examining the patient and this should be billed as an advanced practice provider only discharge. Morgan Morales MD Date of Service 07/13/2024: I did not personally see this patient today. documented in this encounter Medications at Time of Discharge acetaminophen (TYLENOL) 500 MG tabletIndications :Fibromyalgia,Tony n [...] or wheezing 1 Inhaler 3 07/13/2020 aspirin 81 MG EC tabletIndications :Cerebrovascular accident (CVA), unspecified mechanism (H) Take 2 tablets (162 mg) by mouth daily. 05/19/2024 atorvastatin (LIPITOR) 10 MG tabletIndications :Cerebrovascular accident (CVA), unspecified mechanism (H) Take 1 tablet (10 mg) by mouth daily. 30 tablet 07/13/2024 cetirizine (ZYRTEC) 10 MG tablet Take 10 mg by mouth at bedtime. citalopram (CELEXA) 10 MG tabletIndications :Anxiety Take 0.5 tablets (5 mg) by mouth daily. 30 tablet 07/14/2024 fluticasone-vilan terol (BREO ELLIPTA) 200-25 MCG/ACT inhalerIndication s:Moderate persistent asthma without complication Inhale 1 puff into the lungs daily. 3 each 1 06/08/2024 levETIRAcetam (KEPPRA) 750 MG tabletIndications :History of seizure Take 1/2 of 750 mg tab BID 120 tablet 2 07/02/2024 Lidocaine (LIDOCARE) 4 % PatchIndications: Pain of right upper extremity,Fibromy algia Place 1 patch onto the skin daily as needed. To prevent lidocaine toxicity, patient should be patch free for 12 hrs daily. 05/19/2024 LORazepam (ATIVAN) 1 MG tabletIndications :History of seizure Take 1/2-1 tablet daily as needed for onset of dizziness. 10 tablet 06/08/2024 MAGNESIUM PO Take 1 tablet by mouth at bedtime. methyl salicylate-mentho l (ICY HOT) ointmentIndicatio ns:Fibromyalgia,P ain of right upper extremity Apply topically every 6 hours as needed (pain) 01/22/2024 oxyCODONE (ROXICODONE) 5 MG tabletIndications :Cerebrovascular accident (CVA), unspecified mechanism (H) Take 0.5 tablets (2.5 mg) by mouth every 4 hours as needed for moderate to severe pain. 10 tablet 05/19/2024 psyllium (METAMUCIL) 28.3 % packet Take 1 packet by mouth daily senna-docusate (SENOKOT-S/JIMMY LACE) 8.6-50 MG tabletIndications :Other constipation Take 2 tablets by mouth 2 times daily as needed for constipation 01/22/2024 traZODone (DESYREL) 100 MG tablet Take 100 mg by mouth at bedtime. 05/29/2024 documented as of this encounter Progress Notes * Naveen Willard, PT - 07/13/2024 3:33 PM CDT 07/13/24 [id number] Appointment Info Signing Clinician's Name / Credentials (PT) Naveen Vasquez DPT Living Environment People in Home spouse;child(vipul), adult Current Living Arrangements house Transportation Anticipated family or friend will provide Living Environment Comments Pt lives in house with and 26 yo son. 9 stairs up/down (split level) with railing. Pt drives only short distances, not working currently. Was getting OP PT and OT prior to admit. Self-Care Usual Activity Tolerance good Current Activity Tolerance good Equipment Currently Used at Home none Fall history within last six months no Activity/Exercise/Self-Care Comment IND with functional mob. No AD. Hx of previous CVA and using walker, still owns FWW. Not using currently General Information Onset of Illness/Injury or Date of Surgery 07/12/24 Referring Physician Azra Curtis PA-C Pertinent History of Current Problem (include personal factors and/or comorbidities that impact thePOC) Pt is 48 yo female who, per chart, PMH of fibromyalgia, MONAE, hx CVA, EDS, L-sigmoid dural AVF, seizure disorder who was admitted on 07/12/2024 for possible TIA. Existing Precautions/Restrictions fall Cognition Affect/Mental Status (Cognition) WFL Orientation Status (Cognition) oriented x 4 Follows Commands (Cognition) WFL Pain Assessment Patient Currently in Pain No Integumentary/Edema Integumentary/Edema no deficits were identifed Posture Posture Forward head position Range of Motion (ROM) Range of Motion ROM is WFL Strength (Manual Muscle Testing) Strength (Manual Muscle Testing) Able to perform R SLR;Able to perform L SLR;strength is WFL Bed Mobility Comment, (Bed Mobility) supine > sit IND. Transfers Comment, (Transfers) STS with FWW and SBA, steady. Gait/Stairs (Locomotion) Comment, (Gait/Stairs) 20' with FWW and SBA, step through pattern, fair gait speed, WBOS, no overt LOB. Balance Balance Comments able to demo gait w/ and w/o FWW, no overt LOB either. Sensory Examination Sensory Perception patient reports no sensory changes Sensory Perception Comments (initially with R sided numbness/tingling, but has resolved per pt report on this date). Clinical Impression Criteria for Skilled Therapeutic Intervention Yes, treatment indicated PT Diagnosis (PT) impaired functional mob Influenced by the following impairments impaired balance Functional limitations due to impairments difficulty with ambulation Clinical Presentation (PT Evaluation Complexity) stable Clinical Presentation Rationale clinical judgment Clinical Decision Making (Complexity) low complexity Planned Therapy Interventions (PT) balance training;bed mobility training;gait training;home exercise program;stair training;strengthening;ROM (range of motion);transfer training;progressive activity/exercise Risk & Benefits of therapy have been explained evaluation/treatment results reviewed;care plan/treatment goals reviewed;risks/benefits reviewed;current/potential barriers reviewed;participants voiced agreement with care plan;participants included;patient PT Total Evaluation Time PT Eval, Low Complexity Minutes ([id number]) 10 Physical Therapy Goals PT Frequency Daily PT Predicted Duration/Target Date for Goal Attainment 07/20/24 PT Goals Bed Mobility;Transfers;Gait;Stairs PT: Bed Mobility Independent;Supine to/from sit PT: Transfers Independent;Sit to/from stand PT: Gait Independent;Greater than 200 feet PT: Stairs Greater than 10 stairs;Supervision/stand-by assist;Rail on right PT Discharge Planning PT Plan trial stairs, dynamic balance with gait. PT Discharge Recommendation (DC Rec) home with outpatient physical therapy PT Rationale for DC Rec Pt near baseline prior to hospital admit, able to demo gait with SBA and noAD on this date. Recommend resumption of OP PT services (pt reports having prior to admit). No AD needs at this time. PT Brief overview of current status SBA w/o AD; Goals of therapy will be to address safe mobility and make recs for d/c to next level of care. Pt and RN will continue to follow all falls risk precautions as documented by administrative staff supervisor while hospitalized. Physical Therapy Time and Intention Total Session Time (sum of timed and untimed services) 10 * Jesus Lagos RN - 07/13/2024 12:37 PM CDT Observation Goals: Free from ACUTE neuro deficits - partially met; right side weakness and numbness present Testing complete - not met; neurology notes pending, ECHO pending * Azra Curtis PA-C - 07/13/2024 9:17 AM CDT [facility] Hospitalist Progress Note Assessment & Plan Crhistopher Ty is a 48 year old female with PMH of fibromyalgia, MONAE, hx CVA, EDS, L-sigmoid dural AVF, seizure disorder who was admitted on 07/12/2024 for possible TIA. Right sided weakness and paresthesias, ?TIA History of CVA 12/2023 *Patient had an angiogram 12/2023 which led to multiple luis-procedural strokes, with angiogram showing R-iCA dissection and findings suggestive for FMD. *Follows with neurology, see note from 07/02/24. 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 She dropped her work hours down but still had these issues present. She was hospitalized at [facility] in 05/2024 for chest pain evaluation, complicated by L sidedweakness with negative stroke workup and recurrence of pulsatile tinnitus/pounding YANG in the setting of sigmoid dural AV fistula. *Presented to [place] ED 07/12 with right hand and foot paresthesias, nausea, difficulty swallowing, fatigue, unsteadiness, since 1800. Developed headache while in the ED. CT head and CTA head andneck unremarkable. MR brain terminated early (patient had whole body shaking but was alert and conversant throughout episode) and thus limited study, but NAD. - Stroke neuro consulted - Continue CHICKEN SEXER Aspirin, Rosuvastatin - Check CBC, CMP, A1c, lipid panel - Echocardiogram pending - Continue CHICKEN SEXER Aspirin - Neurochecks q4h - STABLE HAND note mild dysphagia, ok for regular solids/thin liquids - PT evaluation pending - Continuous telemetry - Has referral in place for neuropsychology testing given her ongoing cognitive issues Seizure disorder *She had one single GTC following her stroke in 11/2023 as well as other non- convulsive and non-stereotyped events in 01/2024 of unclear nature. *She had worsened behavior on Keppra and so she was switched to Oxcarbazepine in May while staying on low dose Keppra. She continued to have fatigue, pressure in the back of her head, sweatiness and stopped Oxcarbazepine with some improvement. 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 - Continue OP Neurosurgery follow up, MRA brain in 1 year Subclinical hypothyroidism *TSH 9.38, previously 3.87 four months ago. Free T4 is WNL at 1.19. - Repeat thyroid studies as outpatient in 6-8 weeks Fibromyalgia Depression Anxiety Insomnia - Restart Celexa 5 mg daily, low dose given she is also on Trazodone. Reports she responded to thisin the past. - Continue CHICKEN SEXER Ativan PRN - Outpatient follow up with PCP COPD - Can resume CHICKEN SEXER inhaler at discharge Ehler's danlos syndrome *Noted Clinically Significant Risk Factors Present on Admission # Drug Induced Platelet Defect: home medication list includes an antiplatelet medication # Obesity: Estimated body mass index is 32.65 kg/m?? as calculated from the following: Height as of this encounter: 1.727 m (5' 8). Weight as of this encounter: 97.4 kg (214 lb 11.2 oz). # Financial/Environmental Concerns: # Asthma: noted on problem list Diet: Combination Diet Regular Diet DVT Prophylaxis: Pneumatic Compression Devices Pantoja Catheter: Not present Lines: None Cardiac Monitoring: ACTIVE order. Indication: Stroke, acute (48 hours) Code Status: Full Code Disposition Plan Expected Discharge Date: 07/14/2024 Entered: Azra Curtis PA-C 07/13/2024, 9:17 AM Medically Ready for Discharge: Anticipated Tomorrow The patient's care was discussed with the Attending Physician, Dr. Morales, Bedside Nurse, and Patient. The patient has been discussed with Dr. Morales, who agrees with the assessment and plan at this time. Azra Curtis PA-C [facility] Securely message with the [employer] Console (learn more here) Interval History Patient states she has had a left visual field deficit for at least 1 week, possibly longer, noted by her outpatient occupational therapist. She has not noticed any R sided weakness today but has notyet been out of bed. R paresthesias seem to be a little better but states her right hand still feels off. She has been struggling with fatigue. Had a headache yesterday with her symptoms, no significant headache today. -Data reviewed today: I reviewed all new labs and imaging results over the last 24 hours. I personally reviewed no images or EKG's today. Physical Exam Temp: 98.4 ??F (36.9 ??C) Temp src: Oral BP: (!) 146/78 Pulse: 73 Resp: 18 SpO2: 97 % O2 Device: None (Room air) Vitals: 07/13/24 0451 Weight: 97.4 kg (214 lb 11.2 oz) Vital Signs with Ranges Temp: [97.6 ??F (36.4 ??C)-98.4 ??F (36.9 ??C)] 98.4 ??F (36.9 ??C) Pulse: [62-85] 73 Resp: [16-18] 18 BP: (124-167)/(63-113) 146/78 SpO2: [94 %-98 %] 97 % No intake/output data recorded. Constitutional: Awake, alert, cooperative, no apparent distress. ENT: Normocephalic, without obvious abnormality, atraumatic. Normal sclera. Neck: Supple, symmetrical, trachea midline Pulmonary: No increased work of breathing, good air exchange, clear to auscultation bilaterally Cardiovascular: Regular rate and rhythm GI: Normal bowel sounds, soft, non-distended, non-tender. Skin: Visualized skin appeared clear. Neuro: Oriented x 3. Moves all extremities spontaneously. Strength equal b/l upper and lower extremities, [id number] and kndkyl-[id number]-ryyg intact, no facial droop or slurred speech. Reports some left visual field impairment. Right hand sensation still not quite baseline. Psych: Normal affect and mood Extremities: Normal muscle tone. No gross deformities noted. Calves non-tender b/l. No pitting edema b/l LE Medical Decision Making 40 MINUTES SPENT BY ME on the date of service doing chart review, history, exam, documentation & further activities per the note. Medications Current Facility-Administered Medications Medication Dose Route Frequency Provider Last Rate Last Admin Current Facility-Administered Medications Medication Dose Route Frequency Provider Last Rate Last Admin aspirin EC tablet 243 mg 243 mg Oral Daily Azra Curtis PA-C gadobutrol (GADAVIST) injection 10 mL 10 mL Intravenous Once Rocio Ann MD levETIRAcetam (KEPPRA) half-tab 125 mg 125 mg Oral Once Morgan Morales MD levETIRAcetam (KEPPRA) half-tab 375 mg 375 mg Oral BID Azra Curtis PA-C 375 mg at 833 Data Recent Labs Lab 07/13/24 0756 GLC 93 Recent Results (from the past 24 hours) MR Brain w/o Contrast Narrative EXAM: MR BRAIN W/O CONTRAST LOCATION: [facility] DATE: 07/13/2024 INDICATION: right sided numnbess. difficulty swallowing. hx of strokes COMPARISON: MRI brain May 15, 2024. TECHNIQUE: Routine multiplanar multisequence head MRI without intravenous contrast. Impression FINDINGS/IMPRESSION: 1. Only sagittal T1 images and diffusion imaging obtained secondary to patient terminating examination early. No acute infarct. No hydrocephalus. No other gross abnormality identified. Cosigned by Morgan Morales MD at 07/14/2024 3:12 PM CDT Associated attestation - Morgan Morales MD - 07/14/2024 3:12 PM CDT Physician Attestation I have reviewed and discussed with the advanced practice provider their history, physical and plan for Christopher Ty. I did not participate in a shared visit; this is an advanced practice provider only visit. Morgan Morales MD Date of Service 07/13/2024: I did not personally see this patient today. * Jesus Lagos RN - 07/13/2024 8:00 AM CDT Images from the original note were not included. Observation Goals: Free from ACUTE neuro deficits - partially met; right side weakness and numbness present Testing complete - not met; neurology/speech to see pt * Melany Ling RN - 07/13/2024 6:00 AM CDT Observation Goals: Free from ACUTE neuro deficits - partially met; still has some right hand tingling Testing complete - not met; neurology/speech to see pt * Melany Ling RN - 07/13/2024 5:56 AM CDT 07/13/24 05:45 Pt has meds sent to pharmacy; (Ativan and Levetiracetam); Bag # [id number] * Melany Ling RN - 07/13/2024 5:00 AM CDT Admission/Transfer from: ER 2 RN skin assessment completed. Yes Name of 2nd RN: Juani Ceron RN Significant findings include: Few scabs on lower extremities; appear to be scratch hugo and/or abrasions [facility] Nurse Consult Ordered? No * Melany Ling RN - 07/13/2024 4:07 AM CDT RECEIVING UNIT ED HANDOFF REVIEW ED Nurse Handoff Report was reviewed by: Melany Ling RN on July 13, 2024 at 4:07 AM documented in this encounter H&P Notes * Robin Steiner DO - 07/13/2024 1:58 AM CDT [facility] History and Physical - Hospitalist Service Date of Admission: 07/12/2024 Assessment & Plan Christopher Ty is a 48 year old female with a history of Seizures, ocular migraines, Lizy Danlos syndrome, dural AV fistula, bilateral CVA after angiogram, anxiety, fibromyalgia who is admitted on 07/12/2024 with right sided weakness and tingling. Right sided weakness and tingling Possible TIA Symptoms now mostly resolved, some subtle weakness to right side remains but sensation returned to normal. Head CT and CTA head and neck from [place] ED are normal. MRI partially completed here and images obtained are unremarkable. Unclear if this could be a TIA vs focal seizure vs complex migraine. Also need to consider reaction to the CBD supplement she took but that was potentially 12- 36 hours prior to symptom onset. -register to Obs via TIA pathway -neurology consult -cardiac monitoring -q4 hr neuro checks -continue CHICKEN SEXER ASA Seizure disorder Dural AV fistula Bilateral CVA after angiogram Ocular migraine -continue CHICKEN SEXER ASA, keppra, Trileptal Fibromyalgia Depression Anxiety Insomnia -continue CHICKEN SEXER ativan and Trileptal COPD -resume CHICKEN SEXER maintenance inhaler on discharge Lizy' danlos syndrome -noted Diet: Regular if passes dysphagia screen DVT Prophylaxis: Pneumatic Compression Devices Code Status: Full, discussed with patient Disposition: obs for neurology eval. Likely discharge on Saturday. Medically Ready for Discharge: Anticipated Today Clinically Significant Risk Factors Present on Admission # Drug Induced Platelet Defect: home medication list includes an antiplatelet medication # Obesity: Estimated body mass index is 33.45 kg/m?? as calculated from the following: Height as of 06/26/24: 1.727 m (5' 8). Weight as of 06/26/24: 99.8 kg (220 lb). Robin Steiner, DO Hospitalist Service [facility] Securely message with [employer] (more info) Text page via [facility] Paging/Directory Chief Complaint Right sided weakness History is obtained from the patient, ED physician and bedside RN History of Present Illness Christopher Ty is a 48 year old female who has a history of seizures, ocular migraines, dural AV fistula, Lizy' danlos syndrome, CVA after angiogram, anxiety, fibromyalgia who presents to the ED with the above concerns. Patient notes that she felt generally weak earlier in the day but then wasn't able to eat food well and subsequently developed right leg and arm weakness. She notes that she had some right sided weakness after her stroke but nothing since that time as her physical deficits returned to normal. She notes that she has felt a bit rundown this week but denies any specific fever, chest pain, cough, abdominal pain, diarrhea, or other symptoms. She notes a history of insomnia so tried taking a CBD supplement a night or two ago. She didn't like it and doesn't think it helped. No recent med changes and she doesn't miss any meds. In the ED at [facility] she had BMP and CBC that were unremarkable. She had a head CT and CTA head and neck which were negative. She was transferred to [facility] ED to get an MRI. While she was getting the MRI the tech noticed some shaking. When the bedside RN when to assess it was noted that the shaking got worse to the point of full body shaking but the patient was awake and conversing with theRN. She received some ativan for anxiety. Only a portion of the MRI could be complete but images obtained were unremarkable. When I saw the patient she was resting in bed and notes that she currently does not have any right sided symptoms. She agrees with the plan for observation. Labs from [place] ED: sodium 139, k 3.7, bicarb 28, chloride 100, BUN 16, creat 0.7, WBC 9.6, hgb 14.5, plts 192. 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 C DESK MANAGER PROCEDURE DATE: 2000 tubal ligation C DESK MANAGER PROCEDURE DATE: 1994 D&C CARDIAC SURGERY 06/2006 heart defect repair ESOPHAGOSCOPY, GASTROSCOPY, DUODENOSCOPY (EGD), COMBINED N/A 02/08/2021 Procedure: ESOPHAGOGASTRODUODENOSCOPY (EGD); Surgeon: Tuan Miller MD; Location: GI GI SURGERY 09/2020 gallbladder removed HC KNEE SCOPE,MED/LAT MENISECTOMY 08/04/13 LT HEART CATH, CLOSURE ATRIAL SEPTAL DEFECT 06/20/06 amplatzer septal occluder- serial #[id number] RW DESK MANAGER (ABSTRACTED) pneumonia several times SURGICAL PATHOLOGY EXAM 02/2012 excision of lipoma on chest wall [facility] VAGINAL HYSTERECTOMY 01/30/06 Prior to Admission Medications Prior to Admission Medications Prescriptions Last Dose Informant Patient Reported? Taking? LORazepam (ATIVAN) 1 MG tablet No No Sig: Take 1/2-1 tablet daily as needed for onset of dizziness. Lidocaine (LIDOCARE) 4 % Patch No No Sig: Place 1 patch onto the skin daily as needed. To prevent lidocaine toxicity, patient should be patch free for 12 hrs daily. MAGNESIUM PO Yes No Sig: Take 1 tablet by mouth at bedtime. OXcarbazepine (TRILEPTAL) 150 MG tablet No No Sig: Take 1 tablet (150 mg) by mouth 2 times daily. Patient not taking: Reported on 06/26/2024 acetaminophen (TYLENOL) 500 MG tablet No No Sig: Take 1-2 tablets (500-1,000 mg) by mouth 3 times daily as needed for mild pain or headaches albuterol (PROAIR HFA/PROVENTIL HFA/VENTOLIN HFA) 108 (90 Base) MCG/ACT inhaler No No Sig: Inhale 2 puffs into the lungs every 4 hours as needed for shortness of breath / dyspnea or wheezing aspirin 81 MG EC tablet No No Sig: Take 2 tablets (162 mg) by mouth daily. Patient taking differently: Take 3 tablets by mouth daily. cetirizine (ZYRTEC) 10 MG tablet Yes No Sig: Take 10 mg by mouth at bedtime. fluticasone-vilanterol (BREO ELLIPTA) 200-25 MCG/ACT inhaler No No Sig: Inhale 1 puff into the lungs daily. levETIRAcetam (KEPPRA) 750 MG tablet No No Sig: Take 1/2 of 750 mg tab BID melatonin 1 MG TABS tablet Yes No Sig: Take 1 mg by mouth at bedtime. Patient not taking: Reported on 06/26/2024 methyl salicylate-menthol (ICY HOT) ointment No No Sig: Apply topically every 6 hours as needed (pain) oxyCODONE (ROXICODONE) 5 MG tablet No No Sig: Take 0.5 tablets (2.5 mg) by mouth every 4 hours as needed for moderate to severe pain. psyllium (METAMUCIL) 28.3 % packet Yes No Sig: Take 1 packet by mouth daily rosuvastatin (CRESTOR) 10 MG tablet No No Sig: Take 1 tablet (10 mg) by mouth at bedtime. senna-docusate (SENOKOT-S/PERICOLACE) 8.6-50 MG tablet No No Sig: Take 2 tablets by mouth 2 times daily as needed for constipation Patient taking differently: Take 2 tablets by mouth daily. traZODone (DESYREL) 100 MG tablet Yes No Sig: Take 100 mg by mouth at bedtime. traZODone (DESYREL) 50 MG tablet No No Sig: Take 2 tablets (100 mg) by mouth At Bedtime Patient not taking: Reported on 06/08/2024 Facility-Administered Medications: None Review of Systems The 10 point Review of Systems is negative other than noted in the HPI or here. Physical Exam Vital Signs: Temp: 97.8 ??F (36.6 ??C) BP: (!) 149/82 Pulse: 72 Resp: 16 SpO2: 95 % O2 Device: None(Room air) Weight: 0 lbs 0 oz Gen: lying in bed, appears comfortable CV: RRR, no m/r/g Pulm: CTAB, no wheeze or rhonchi GI: +BS, soft, NT/ND Lymph: no edema Neuro: moving all extremities. Muscle strength is slightly decreased on the right side as compared to the left. Finger/nose/finger and blind finger/nose testing normal. No nystagmus. Medical Decision Making 60 MINUTES SPENT BY ME on the date of service doing chart review, history, exam, documentation & further activities per the note. Data Imaging results reviewed over the past 24 hrs: Recent Results (from the past 24 hours) MR Brain w/o Contrast Narrative EXAM: MR BRAIN W/O CONTRAST LOCATION: [facility] DATE: 07/13/2024 INDICATION: right sided numnbess. difficulty swallowing. hx of strokes COMPARISON: MRI brain May 15, 2024. TECHNIQUE: Routine multiplanar multisequence head MRI without intravenous contrast. Impression FINDINGS/IMPRESSION: 1. Only sagittal T1 images and diffusion imaging obtained secondary to patient terminating examination early. No acute infarct. No hydrocephalus. No other gross abnormality identified. documented in this encounter Consult Notes * Stevo Islas MD - 07/13/2024 7:02 AM CDT Images from the original note were not included. [facility] Stroke Consult Note Reason for Consult: ?TIA Chief Complaint: Neurologic Problem HPI Christopher Ty is a 48 year old female with past medical history significant for seizure disorder, ocular migraine, ischemic stroke, CKD, atrial septal defect s/p repair, Euler Danlos syndrome, left sigmoid aVF and IR angiogram complicated by ischemic strokes and right ICA dissection presents for complaints of right hand /foot paresthesias, dysphagia, fatigue and gait instability. Christopher states that she has been feeling fatigued for the past week, over the weekend she developed numbness and tingling of her right upper and lower extremities over the weekend which progressed, shealso had dysphagia and gait instability. She was seen in December 2023 for problems with pulsatile tinnitus after which she underwent cerebral angiogram at [facility] on January 08 for suspected dural AV fistula. He results of this study were as follows: Cognard type I left sigmoid dural arteriovenous fistula with arterial supply from left middle meningeal, left ascending pharyngeal and left occipital artery branches, and with anterograde venous drainage to the left sigmoid sinus. 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 Following the procedure on 09 January 2024 she presented ER with right arm clumsiness.CT head was negative for any hemorrhage. She presented to the ER again on 11 January for continued symptoms of her right arm MRI brain revealed bilateral punctate areas of subacute infarct mainly involving left parietal region. She later developed focal seizures with secondary generalization for which she was started on Keppra 750 mg twice daily. On 05/09 she presented to the outside hospital for chest pain and pressure, she was transferred to [facility] for ACS workup, we were consulted for left face and arm numbness, MRI brain was negative for any acute stroke, CTA head and neck were negative for any large vessel occlusion or any hemodynamic significant stenosis, etiology of focal neurological deficits were thought to be non neurovascular etiology after our evaluation. Also ACS workup was largely unremarkable. Stroke Evaluation Summarized MRI/Head CT Limited MRI brain did not reveal acute ischemic stroke Intracranial Vasculature N/A Cervical Vasculature N/a Echocardiogram 1. The left ventricle is normal in structure, function and size. The visual ejection fraction is estimated at 55%. 2. The right ventricle is not well visualized. 3. No valve disease. EKG/Telemetry Other Testing Not Applicable LDL 07/13/2024: 107 mg/dL A1C 07/13/2024: 5.5 % Troponin No lab value available in past 48 hrs Impression Right hand /foot numbness/paresthesias, dysphagia, fatigue and gait instability 48 year old female with past medical history significant for seizure disorder, ocular migraine, ischemic stroke, CKD, atrial septal defect s/p repair, Euler Danlos syndrome, left sigmoid aVF and IR angiogram complicated by ischemic strokes and right ICA dissection presents for complaints of right hand /foot paresthesias, dysphagia, fatigue and gait instability. MRI brain did not reveal an acute ischemic stroke. She has had recurrent presentations with a multitude of nonlocalizable neurological deficits, these are less likely to be of neurovascular etiology. No further stroke workup is warranted at this time and she will need optimal multidisciplinary outpatient care especially psychiatric therapy. Recommendations Follow-up with psychiatry for possible CBT Patient Follow-up - in 6-8 weeks with general neurology or stroke MONICA ([phone]) Thank you for this consult. No further stroke evaluation is recommended, so we will sign off. Please contact us with any additional questions. The Stroke Staff is Dr. Joyce. Stevo Islas MD Vascular Neurology Fellow To page me or covering stroke neurology [employer] team member, click here: [employer] Choose [employer] Manager tab at top, then select NEUROLOGY/ALL SITES from middle drop- down box, press Enter, then look for stroke or telestroke for your site. Clinically Significant Risk Factors Present on Admission # Drug Induced Platelet Defect: home medication list includes an antiplatelet medication # Obesity: Estimated body mass index is 32.65 kg/m?? as calculated from the following: Height as of this encounter: 1.727 m (5' 8). Weight as of this encounter: 97.4 kg (214 lb 11.2 oz). 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 Patient taking differently: Take 3 tablets by mouth daily. 05/19/24 Shruthi Tyson MD cetirizine (ZYRTEC) 10 MG tablet Take 10 mg by mouth at bedtime. Unknown, Entered By History fluticasone-vilanterol (BREO ELLIPTA) 200-25 MCG/ACT inhaler Inhale 1 puff into the lungs daily. 06/08/24 Denise Woodson Ra, APRN CNP levETIRAcetam (KEPPRA) 750 MG tablet Take 1/2 of 750 mg tab BID 07/02/24 Randy Maradiaga, Lidocaine (LIDOCARE) 4 % Patch Place 1 patch onto the skin daily as needed. To prevent lidocaine toxicity, patient should be patch free for 12 hrs daily. 05/19/24 Shruthi Tyson MD LORazepam (ATIVAN) 1 MG tablet Take 1/2-1 tablet daily as needed for onset of dizziness. 06/08/24 Denise Woodson Ra, APRN CNP MAGNESIUM PO Take 1 tablet by mouth at bedtime. Unknown, Entered By History melatonin 1 MG TABS tablet Take 1 mg by mouth at bedtime. Patient not taking: Reported on 06/26/2024 Reported, Patient methyl salicylate-menthol (ICY HOT) ointment Apply topically every 6 hours as needed (pain) 01/22/24 Delisa Manuel MD OXcarbazepine (TRILEPTAL) 150 MG tablet Take 1 tablet (150 mg) by mouth 2 times daily. Patient not taking: Reported on 06/26/2024 06/08/24 Rohit Barcenas MD oxyCODONE (ROXICODONE) 5 MG tablet Take 0.5 tablets (2.5 mg) by mouth every 4 hours as needed for moderate to severe pain. 05/19/24 Shruthi Tyson MD psyllium (METAMUCIL) 28.3 % packet Take 1 packet by mouth daily Unknown, Entered By History rosuvastatin (CRESTOR) 10 MG tablet Take 1 tablet (10 mg) by mouth at bedtime. 05/25/24 Denise Woodson Ra, APRN CNP senna-docusate (SENOKOT-S/PERICOLACE) 8.6-50 MG tablet Take 2 tablets by mouth 2 times daily as needed for constipation Patient taking differently: Take 2 tablets by mouth daily. 01/22/24 Delisa Manuel MD traZODone (DESYREL) 100 MG tablet Take 100 mg by mouth at bedtime. 05/29/24 Reported, Patient traZODone (DESYREL) 50 MG tablet Take 2 tablets (100 mg) by mouth At Bedtime Patient not taking: Reported on 06/08/2024 07/27/21 Denise Woodson Ra, APRN CNP Scheduled Meds Current Facility-Administered Medications Medication Dose Route Frequency Provider Last Rate Last Admin gadobutrol (GADAVIST) injection 10 mL 10 mL Intravenous Once Rocio Ann MD Infusion Meds Current Facility-Administered Medications Medication Dose Route Frequency Provider Last Rate Last Admin Allergies Allergies Allergen Reactions Codeine GI Disturbance Other Reaction(s): epigastric pain Acetaminophen-Codeine Nausea and Vomiting and Other (See Comments) Mold Dizziness and GI Disturbance Molds & Smuts Dizziness and Nausea Morphine GI Disturbance Pollen Extract Other (See Comments) and Unknown Bupropion GI Disturbance and Other (See Comments) Diarrhea and stomach ache Erythromycin GI Disturbance PHYSICAL EXAMINATION Temp: [97.6 ??F (36.4 ??C)-97.8 ??F (36.6 ??C)] 97.6 ??F (36.4 ??C) Pulse: [62-85] 62 Resp: [16-18] 18 BP: (124-167)/(63-113) 124/63 SpO2: [94 %-98 %] 98 % Neurologic Mental Status: alert, oriented x 3, follows commands, speech clear and fluent, naming and repetition normal Cranial Nerves: visual thomas intact, PERRL, EOMI with normal smooth pursuit, facial sensation intact and symmetric, facial movements symmetric, hearing not formally tested but intact to conversation, palate elevation symmetric and uvula midline, no dysarthria, shoulder shrug strong bilaterally, tongue protrusion midline Motor: normal muscle tone and bulk, no abnormal movements, able to move all limbs spontaneously, strength 5/5 throughout upper and lower extremities, no pronator drift Reflexes: toes down-going Sensory: Decreased to light touch in right upper and lower extremities Coordination: normal [id number] and bqqb-[id number] bilaterally without dysmetria, rapid alternating movements symmetric Station/Gait: deferred Imaging I personally reviewed all imaging; relevant findings per HPI. Labs Data CBC No results for input(s): WBC, RBC, HGB, HCT, PLT in the last 168 hours. Basic Metabolic Panel No results for input(s): NA, POTASSIUM, CHLORIDE, CO2, BUN, CR, GLC, TIFF in the last 168 hours. Liver Panel No results for input(s): PROTTOTAL, ALBUMIN, BILITOTAL, ALKPHOS, AST, ALT, BILIDIRECTin the last 168 hours. INR Recent Labs Lab Test 05/10/24 1434 02/13/24 1216 02/04/24 1349 INR 0.92 0.94 0.90 Stroke Consult Data Data This was a non-emergent, non-telestroke consult. Cosigned by Dahlia Joyce MD at 07/13/2024 10:53 PM CDT Associated attestation - Dahlia Joyce MD - 07/13/2024 10:53 PM CDT Physician Attestation I, Dahlia Joyce, saw Christopher Martines Wareham with the fellow and agree with the fellow's findings and plan of care as documented in the fellow's note. I personally reviewed vital signs, medications, labs, and imaging. 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 Symptoms improved now. No new stroke on limited MRI. 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 Since I last personally saw her, she has arranged for formal neuropsychometric testing, but this will not occur until August. She thinks her anxiety and depression which were previously treated with celexa are recurrent and this has been restarted. Additionally, CBT could be considered on an outpatient basis. Dahlia Joyce MD Vascular Neurology I personally spent a total of 70 minutes on July 13, 2024 consulting with her medical providers and coordinating care. This includes personally reviewing the patient's medical record including diagnostic testing, neuroimaging, and laboratory studies. documented in this encounter ED Notes * Shawna Bhakta RN - 07/13/2024 1:27 AM CDT [facility] ED Nurse Handoff Report ED Chief complaint: Neurologic Problem ED Diagnosis: Final diagnoses: None Code Status: Full Code Allergies: Allergies Allergen Reactions Codeine GI Disturbance Other Reaction(s): epigastric pain Acetaminophen-Codeine Nausea and Vomiting and Other (See Comments) Mold Dizziness and GI Disturbance Molds & Smuts Dizziness and Nausea Morphine GI Disturbance Pollen Extract Other (See Comments) and Unknown Bupropion GI Disturbance and Other (See Comments) Diarrhea and stomach ache Erythromycin GI Disturbance Patient Story: Pt sent from [place] ER d/t no MRI capability for c/o right leg numbness/tingling, swallowing difficulty, headache. Previous hx of stroke. Received keppra at [facility]. Focused Assessment: CT at [facility] showed no stroke. Here pt c/o pins/needles in right foot and feeling like gait is off. Headache and nausea resolved after benadryl and compazine. While at MRI pt started feeling anxious and began to shake all over. Pt believes she was having a seizure however ptwas able to freely converse during episode. Pt given ativan for anxiety. Treatments and/or interventions provided: see above Patient's response to treatments and/or interventions: see above To be done/followed up on inpatient unit: none pending Does this patient have any cognitive concerns?: none Activity level - Baseline/Home: Independent Activity Level - Current: Stand with Assist Patient's Preferred language: Russian Crime Scene Technician Needed?: No Isolation: None Infection: Not Applicable Patient tested for COVID 19 prior to admission: NO Bariatric?: No Vital Signs: Vitals: 07/12/24 2336 07/13/24 0000 07/13/24 0110 07/13/24 0111 BP: (!) 151/99 (!) 149/82 Pulse: 78 72 Resp: Temp: SpO2: 98% 96% 95% Cardiac Rhythm: Was the PSS-3 completed: Yes What interventions are required if any? Family Comments: None present OBS brochure/video discussed/provided to patient/family: N/A Name of person given brochure if not patient: N/A Relationship to patient: N/A For the majority of the shift this patient's behavior was Green. Behavioral interventions performed were information. ED NURSE PHONE NUMBER: * Shawna Bhakta RN - 07/13/2024 1:10 AM CDT Received call from MRI that pt was feeling anxious and would we be able to medicate her. Dr. Wren immediately available so MRI informed that we will call her back in a few minutes. A few minutes later MRI called stating the pt thinks she is having a seizure. This nurse arrived to MRI and found pt to be shaking all over (MRI reports shaking became significantly worse upon this writers arrival). When pt's name called pt immediately looked at the speaker and able to answer questions coherently. Pt also able to protect face from extended arm drop multiple times. Pt returned to ER room. Shaking stopped during transport. Pt continues to answer questions appropriately. Dr. Ann updated. * Shawna Bhakta RN - 07/13/2024 12:14 AM CDT Pt rates headache 4/10 at this time. Waiting for MRI. Extra pillows placed under legs. * Rocio Ann MD - 07/12/2024 11:00 PM CDT Emergency Department Note History of Present Illness Chief Complaint Neurologic Problem HPI Christopher Ty is a 48 year old female with a history of seizure, ocular migraine, stroke, and stage1 CKD who presents to the ED for evaluation of a neurologic problem. The patient states she startedto experience right hand and foot paresthesias, nausea, difficulty swallowing, fatigue, and unsteadiness with ambulation around 1800 today while eating dinner. She was taken by EMS to [place] [facility] ED for these symptoms and CT and CTA was done but she was sent here for MRI and further evaluation. Endorses a new headache here. States she felt at baseline before symptom onset and had a normal day today. Reports similar right- sided weakness with a past stroke. No weakness or paresthesias since. Also notes a history of seizures and auras that are controlled with Keppra. None since April 2024. Denies history of migraines. Denies vomiting, diarrhea, dysuria, hematuria, fever, cough, or chest pain. The patient is not on blood thinners. Independent Historian None Review of External Notes I reviewed the transfer and results paperwork that arrived with the patient from [facility] ED. Ct results as noted below. CT/CTA Head/Neck IMPRESSION: Widely patent cervical and intracranial vasculature Pulmonary emphysema Past Medical History Medical History and Problem List Anxiety Asthma Bronchopulmonary dysplasia Hemorrhoids Hydrosalpinx Ocular migraine Seizure CKD, stage 1 ASD ADHD COPD DDD Lizy-danlos syndrome Fibromyalgia Stroke Depression Insomnia GERD Medications Albuterol Aspirin 81 mg Breo ellipta Keppra Ativan Trileptal Oxycodone Crestor Trazodone Surgical History Tubal ligation Uterine D&C Cholecystectomy Menisectomy (L) Heart catheterization with ASD closure Chest wall lipoma excision Hysterectomy Physical Exam Patient Vitals for the past 24 hrs: BP Temp Pulse Resp SpO2 07/12/24 2240 (!) 167/113 97.8 ??F (36.6 ??C) 85 16 98 % Physical Exam General: Sitting up in bed Eyes: The pupils are equal and round Conjunctivae and sclerae are normal ENT: Atraumatic face Neck: Normal range of motion CV: Regular rate, regular rhythm Skin warm and well perfused Resp: Non labored breathing on room air No tachypnea No cough heard Lungs clear bilaterally GI: Abdomen is soft, there is no rigidity No distension No rebound tenderness No abdominal tenderness MS: Normal muscular tone Skin: No rash or acute skin lesions noted Neuro: Awake, alert. Speech is normal and fluent. Face is symmetric. Moves all extremities equally No weakness noted on exam. Reports numbness on right arm, right face and right leg Psych: Normal affect. Appropriate interactions. Diagnostics Lab Results Labs Ordered and Resulted from Time of ED Arrival to Time of ED Departure - No data to display Imaging MR Brain w/o Contrast Final Result FINDINGS/IMPRESSION: 1. Only sagittal T1 images and diffusion imaging obtained secondary to patient terminating examination early. No acute infarct. No hydrocephalus. No other gross abnormality identified. Independent Interpretation None ED Course Medications Administered Medications gadobutrol (GADAVIST) injection 10 mL (has no administration in time range) ondansetron (ZOFRAN ODT) ODT tab 4 mg (has no administration in time range) Or ondansetron (ZOFRAN) injection 4 mg (has no administration in time range) levETIRAcetam (KEPPRA) half-tab 375 mg (has no administration in time range) LORazepam (ATIVAN) tablet 0.5-1 mg (has no administration in time range) prochlorperazine (COMPAZINE) injection 10 mg (10 mg Intravenous $Given 07/12/24 2335) diphenhydrAMINE (BENADRYL) injection 12.5 mg (12.5 mg Intravenous $Given 07/12/24 2332) LORazepam (ATIVAN) injection 0.5 mg (0.5 mg Intravenous $Given 07/13/24 0149) Procedures Procedures Discussion of Management Admitting Hospitalist, Dr. Steiner ED Course ED Course as of 07/13/24150 [place] Jul 12, [id number] I obtained history and performed a physical exam as noted above. [facility] Jul 13, [id number] I spoke with Dr. Steiner of the hospitalist service regarding the patient's presentation and plan of care. They accept the patient for admission. Additional Documentation None Medical Decision Making / Diagnosis [facility] Christopher Ty is a 48 year old female who presented to the emergency department with neurologic problem. Patient with reported right sided numbness that started around dinnertime. Had CT head and CTAhead and neck at outside hospital which was negative. Also had basic blood work at outside hospitalwhich was negative. EKG reviewed from outside hospital as well and in sinus rhythm. I do not think a ny additional blood work was needed other than I did do a Keppra level. MRI brain was obtained. Some images were able to be obtained and no acute stroke seen though limited images due to patient having reported seizure in MRI. Nurse went to evaluate the patient and patient was having whole body shaking but able to talk to the nurse and look at the nurse. ED nurse reported that this was not consistent with seizure. She is brought back to the emergency department. I examined the patient and there is no seizure activity. Reports feeling anxious. There has been noted in past functional overlay- non physiologic concerns in the past by multiple providers per neurosurgery note. This may be contributing to symptoms today. Discussed patient with hospitalist for admission. Disposition The patient was admitted to the hospital. Diagnosis ICD-10-CM 1. Right sided numbness R20.0 Scribe Disclosure: I, Tootie Doshi, am serving as a scribe at 11:01 PM on 07/12/2024 to document services personally performed by Rocio Ann MD based on my observations and the provider's statements to me. Rocio Ann MD 07/13/24 0737 * Minnie Escobar RN - 07/12/2024 10:51 PM CDT MRI screening form faxed at this time * Minnie Escobar RN - 07/12/2024 10:36 PM CDT Pt biba from [facility] ER - hx of strokes with previous right sided deficits - noted right hand and right foot weakness and tingling that started around 1500. During dinner tonight, pt had trouble swallowing and presented to ED - CT was done, but unable to get MRI. Pt c/o headache, nausea and vomiting, given tylenol by [facility] [facility] ED at 2145 * Abi Genao RN - 07/12/2024 10:32 PM CDT Bed: ED01 Expected date: Expected time: Means of arrival: Comments: NF [id number]- right sided weakness- needs MRI documented in this encounter Miscellaneous Notes * Plan of Care - Jackie Bonilla, PT - 07/13/2024 6:19 PM CDT Physical Therapy Discharge Summary Reason for therapy discharge: Discharged to home with outpatient therapy. Progress towards therapy goal(s). See goals on Care Plan in Epic electronic health record for goal details. Goals partially met. Barriers to achieving goals: discharge from facility. Therapy recommendation(s): Pt near baseline prior to hospital admit, able to demo gait with SBA and no AD on this date. Recommend resumption of OP PT services (pt reports having prior to admit). No AD needs at this time. * Plan of Care - Jesus Lagos RN - 07/13/2024 2:59 PM CDT Goal Outcome Evaluation: PRIMARY Concern: Right sided numbness/tingling, hx of stroke in november/December SAFETY RISK Concerns (fall risk, behaviors, etc.): Fall; Seizure precautions Aggression Tool Color: Green Isolation/Type: N/A Tests/Procedures for NEXT shift: ECHO pending Consults? (Pending/following, signed-off?) awaiting Neurology recommendations Where is patient from? (Home, TCU, etc.): Home Other Important info for NEXT shift: home meds sent to pharmacy. STABLE HAND indicated mild dysphagia. Anticipated DC date & active delays: TBD SUMMARY NOTE: Orientation/Cognitive: A&O x 4; neuro is intact except for some weakness and tingling on the upper R side. Observation Goals (Met/ Not Met): Not met Mobility Level/Assist Equipment: SBA Antibiotics & Plan (IV/po, length of tx left): None Pain Management: denies pain Tele/VS/O2: VSS on RA except elevated BP. Ortho neg. Tele: SR ABNL Lab/BG: TSH 9.38, T4 1.19 Diet: Regular diet;sit upright, avoid distraction while eating, Bowel/Bladder: Voiding; no BM Skin Concerns: Few scattered scabs on lower extremities Drains/Devices: PIV SL Patient Stated Goal for Today: to go home . * Pharmacy-Admission Medication History - Alexa Partida, MarcelloD - 07/13/2024 9:05 AM CDT Pharmacist Admission Medication History Admission medication history is complete. The information provided in this note is only as accurateas the sources available at the time of the update. Information Source(s): Patient and CareEverywhere/SureScripts via phone Changes made to [facility] medication list: Added: None Deleted: oxcarbazepine - pt states she was trialed on for seizures but was stopped due to side effects, melatonin, duplicate trazodone Changed: Senna S --> changed to 1 daily Medication History Completed By: Alexa Partida, PharmD 07/13/2024 9:05 AM [facility] Med List Medication Sig Last Dose/Taking acetaminophen (TYLENOL) 500 MG tablet Take 1-2 tablets (500-1,000 mg) by mouth 3 times daily as needed for mild pain or headaches Taking As Needed albuterol (PROAIR HFA/PROVENTIL HFA/VENTOLIN HFA) 108 (90 Base) MCG/ACT inhaler Inhale 2 puffs intothe lungs every 4 hours as needed for shortness of breath / dyspnea or wheezing Taking As Needed aspirin 81 MG EC tablet Take 2 tablets (162 mg) by mouth daily. (Patient taking differently: Take 3tablets by mouth daily.) 07/12/2024 cetirizine (ZYRTEC) 10 MG tablet Take 10 mg by mouth at bedtime. 07/12/2024 fluticasone-vilanterol (BREO ELLIPTA) 200-25 MCG/ACT inhaler Inhale 1 puff into the lungs daily. 07/12/2024 levETIRAcetam (KEPPRA) 750 MG tablet Take 1/2 of 750 mg tab BID 07/12/2024 Lidocaine (LIDOCARE) 4 % Patch Place 1 patch onto the skin daily as needed. To prevent lidocaine toxicity, patient should be patch free for 12 hrs daily. Taking As Needed LORazepam (ATIVAN) 1 MG tablet Take 1/2-1 tablet daily as needed for onset of dizziness. Taking MAGNESIUM PO Take 1 tablet by mouth at bedtime. Past Week methyl salicylate-menthol (ICY HOT) ointment Apply topically every 6 hours as needed (pain) Taking As Needed oxyCODONE (ROXICODONE) 5 MG tablet Take 0.5 tablets (2.5 mg) by mouth every 4 hours as needed for moderate to severe pain. Taking As Needed psyllium (METAMUCIL) 28.3 % packet Take 1 packet by mouth daily 07/12/2024 rosuvastatin (CRESTOR) 10 MG tablet Take 1 tablet (10 mg) by mouth at bedtime. 07/12/2024 senna-docusate (SENOKOT-S/PERICOLACE) 8.6-50 MG tablet Take 2 tablets by mouth 2 times daily as needed for constipation (Patient taking differently: Take 1 tablet by mouth daily.) 07/12/2024 traZODone (DESYREL) 100 MG tablet Take 100 mg by mouth at bedtime. Past Week * Plan of Care - Melany Ling RN - 07/13/2024 6:58 AM CDT Goal Outcome Evaluation: PRIMARY Concern: Right sided numbness/tingling SAFETY RISK Concerns (fall risk, behaviors, etc.): Fall; Seizure precautions Aggression Tool Color: Green Isolation/Type: N/A Tests/Procedures for NEXT shift: None Consults? (Pending/following, signed-off?) Neurology and Speech to see pt Where is patient from? (Home, TCU, etc.): Home Other Important info for NEXT shift: Pt requesting [facility]ER ativan be ordered along with regular meds; had home meds sent to pharmacy Anticipated DC date & active delays: To be decided SUMMARY NOTE: Orientation/Cognitive: A&O x 4; neuro's intact except for right hand tingling Observation Goals (Met/ Not Met): Not met Mobility Level/Assist Equipment: Ax1 with walker/gait belt Antibiotics & Plan (IV/po, length of tx left): None Pain Management: Pt denied pain Tele/VS/O2: Tele SR; VSS; orthostatics completed x 1; RA ABNL Lab/BG: See prior hospital flowsheets Diet: Regular diet; (pt passed dysphagia screen) Bowel/Bladder: Voiding; no BM Skin Concerns: Few scattered scabs on lower extremities Drains/Devices: PIV SL'd Patient Stated Goal for Today: Get ativan and daily meds ordered. documented in this encounter Plan of Treatment Upcoming Encounters Date Type Department Care Team (Late st Contact Info) Description 07/20/2024 12:00 PM ADVICE CLERK [facility] [address] [place] [phone] Denise Woodson Ra, HIGH SPEED OPERATOR WRAPPER SELECTOR [address] [place], [place] [phone] 07/30/2024 8:30 AM ADVICE CLERK Virtual Visit [facility] [address] 3rd [place] [phone] Randy Maradiaga, [address] [address] 08/04/2024 12:00 PM ADVICE CLERK Virtual Visit [facility] [address] [place] [phone] Arthur Salas, [address] [address] 08/04/2024 3:30 PM ADVICE CLERK [facility] [address] [place] [phone] Denise Woodson Ra, BARRERA WRAPPER SELECTOR [address] [place] [address] 08/07/2024 1:00 PM ADVICE CLERK Appointment [facility] [address] [place] [address] [place] [phone] Danna Cardenas PA-C [address] [place] [address] 08/10/2024 12:30 PM ADVICE CLERK Virtual Visit [facility] [address] [phone] Robin Zepeda MD [address] [place] [phone] 08/17/2024 12:30 PM ADVICE CLERK Office Visit [facility] Neuro[facility] [address] [phone] Robin Zepeda MD [address] [place] [address] Tulio Ogden, PhD [address] [phone] 09/04/2024 11:00 AM ADVICE CLERK Office Visit [facility] [address] [place] [phone] Denise Woodson Ra, BARRERA WRAPPER SELECTOR [address] [place] [address] 09/18/2024 1:00 PM ADVICE CLERK Office Visit [facility] [address] [place] [phone] Denise Woodson Ra, BARRERA WRAPPER SELECTOR [address] [place] [address] 09/29/2024 9:00 AM ADVICE CLERK Virtual Visit [facility] [address] [phone] Randy Maradiaga DO [address] [place] [address] 10/09/2024 1:20 PM ADVICE CLERK Office Visit [facility] [address] [facility] [address] [place] [phone] Danna Cardenas PA-C [address] [facility] [place] [address] 10/30/2024 4:00 PM ADVICE CLERK Virtual Visit [facility] [place] [address] [place] [phone] Lisa Zambrano MD [address] [place] [phone] 12/29/2024 12:45 PM CDT Office Visit [facility] [address] [place] [address] [address] [phone] Fabi Coates MD [address] [place] [address] 12/29/2024 1:45 PM CDT Office Visit [facility] [address] [place], [place] [address]e [facility] [address] [phone] Fabi Coates MD [address] [address] 06/01/2025 11:15 AM CDT Appointment [facility] [address] [facility] [address] [place] [phone] Robin Zepeda MD [address] [address] 06/04/2025 11:00 AM CDT Office Visit [facility] [address] 3rd [place] [phone] Robin Zepeda MD [address] [place] [phone] Usha Simon, HIGH SPEED OPERATOR WRAPPER SELECTOR [address] [place] [phone] Scheduled Referrals Name Type Priority Associated Diagnoses Orde r Schedule Adult Mental Health Malthouse Laborer Referral Referral Routine: Next available opening Anxiety Expected: 07/13/2024 (Approximate), Expires: 07/13/2025 Adult Neurology Malthouse Laborer Referral Referral Routine: Next available opening Seizure-like activity (H) Expected: 07/13/2024 (Approximate), Expires: 07/13/2025 documented as of this encounter Goals Goal [...] Mental Health weekly - PT, OT and STABLE HAND, continuing through [facility] [place]: - Continue following up with PCP: 09/04/2024 - Vascular Dr. Zambrano 05/01/24 - follow up recommended in 6 months: 11/11/24 TBD #[phone]. - call independently - MTM 05/25/2024, completed - Neurosurgery Dr. Duane, following up with SCOURING TRAIN OPERATOR CHIEF: 06/04/2025 11:00 AM (Arrive by 10:45 AM) Usha Simon APRN WRAPPER SELECTOR 2. I will take my medications as prescribed. 3. I will discuss, review, schedule and complete recommended overdue health maintenance with my Primary Care Provider. 4. I will contact my care team with questions, concerns, support needs. I will use the clinic as a resource and I understand I can contact my clinic with 24/7 after hours services available. Roller will remain available as needed. documented as of this encounter Procedures Procedure Name Priority Date/Time Associated Diagnosis Comments ECHO COMPLETE WITH CONTRAST Routine 07/13/2024 4:00 PM CDT CBC WITH PLATELETS AND DIFFERENTIAL STAT 07/13/2024 12:40 PM CDT CBC WITH PLATELETS & DIFFERENTIAL STAT 07/13/2024 12:40 PM CDT LIPID REFLEX TO DIRECT LDL PANEL STAT 07/13/2024 12:40 PM CDT HEMOGLOBIN A1C Routine 07/13/2024 12:40 PM CDT COMPREHENSIVE METABOLIC PANEL STAT 07/13/2024 12:40 PM CDT GLUCOSE BY METER Routine 07/13/2024 7:56 AM CDT MR BRAIN W/O CONTRAST STAT 07/13/2024 1:09 AM CDT KEPPRA (LEVETIRACETAM) LEVEL STAT 07/12/2024 11:28 PM CDT TSH WITH FREE T4 REFLEX Add-On 07/12/2024 11:28 PM CDT T4 FREE Routine 07/12/2024 11:28 PM CDT documented in this encounter Results * ECHO COMPLETE WITH CONTRAST (07/13/2024 4:00 PM CDT) LVEF 55% CARDIOLOGY RESULTS Anatomical Region Laterality Modality Echocardiography 07/13/2024 3:16 PM CDT Narrative 07/13/2024 4:29 PM CDT [id number]^EVER^AZRA^Analy [facility] Echocardiography Laboratory [address] [place] [address] Name: CHRISTOPHER TY : 1975 Study Date: 07/13/2024 03:16 PM Age: 48 yrs Gender: Female Patient Location: [facility] Reason For Study: TIA Ordering Physician: AZRA CURTIS Performed By: Janna Fenton BSA: 2.1 m2 Height: 68 in Weight: 214 lb HR: 71 BP: 138/92 mmHg Procedure Complete Portable Echo Adult. Definity ([facility] #[id number]) given intravenously. Contrast Definity. Technically difficult study.Extremely [...] Procedure Note Joe Matos MD - 07/13/2024 [id number]^EVER^AZRA^Analy [facility] Echocardiography Laboratory [address] [place] [address] Name: CHRISTOPHER TY : 1975 Study Date: 07/13/2024 03:16 PM Age: 48 yrs Gender: Female Patient Location: [facility] Reason For Study: TIA Ordering Physician: AZRA CURTIS Performed By: Janna Fenton BSA: 2.1 m2 Height: 68 in Weight: 214 lb HR: 71 BP: 138/92 mmHg Procedure Complete Portable Echo Adult. Definity ([facility] #[id number]) givenintravenously. Contrast Definity. Technically difficult study.Extremely difficultacoustic [...] platelets and differential (07/13/2024 12:40 PM CDT) WBC Count 9.5 4.0 - 11.0 10e3/uL [...] - BLOOD ORDERABLES F inal Result LABORATORY [facility] [address] 1st floor, [address] [place] [address], [facility] [phone] * Hemoglobin A1c (07/13/2024 12:40 PM CDT) Estimated Average Glucose 111 <117 mg/dL 07/13/2024 [...] - BLOOD ORDERABLES F inal Result LABORATORY [facility] [address] 1st floor, [address] [place] [address], [facility] [phone] * (ABNORMAL) Lipid panel reflex to direct LDL (07/13/2024 12:40 PM CDT) Cholesterol 217(H) <200 mg/dL 07/13/2024 4:43 PM [...] BLOOD ORDERABLES F inal Result [facility] LABORATORY [facility] [place] [facility] [address] [facility] [address] Building, [address] [place] [address], [facility] LABORATORY [facility] Lab [address] 1[address] floor, Room [address] [place] [address], [facility] [phone] * Comprehensive metabolic panel (07/13/2024 12:40 PM CDT) [facility] Sodium 137 135 - 145 mmol/L 07/13/2024 [...] PM CDT 07/13/2024 12:58 PM CDT us Azar Curtis PA-C LAB - BLOOD ORDERABLES F inal Result LABORATORY [facility] Lab [address]st floor, [address] [place] [address] [phone] * Glucose by meter (07/13/2024 7:56 AM CDT) GLUCOSE BY METER POCT 93 70 - 99 mg/dL 07/13/2024 8:03 AM CDT LABORATORY POC Blood, Capillary BLOOD SPECIMEN / Unknown 07/13/2024 7:56 AM CDT 07/13/2024 8:03 AM CDT us Morgan Morales MD LAB - BEAKER POCT Final Resu lt LABORATORY POC [facility] Lab [address] 1st floor, [address] [place] [address] * MR Brain w/o Contrast (07/13/2024 1:09 [...] CDT EXAM: MR BRAIN W/O CONTRAST LOCATION: [facility] DATE: 07/13/2024 INDICATION: right sided numnbess. difficulty swallowing. hx of strokes COMPARISON: ??MRI brain May 15, 2024. TECHNIQUE: Routine multiplanar multisequence head MRI without intravenous contrast. Procedure Note Alfred Kruger MD - 07/13/2024 EXAM: MR BRAIN W/O CONTRAST LOCATION: [facility] DATE: 07/13/2024 INDICATION: right sided numnbess. difficulty swallowing. hx of strokes COMPARISON: MRI brain May 15, 2024. TECHNIQUE: Routine multiplanar multisequence head MRI without intravenouscontrast. FINDINGS/IMPRESSION: 1. Only sagittal T1 images and diffusion imaging obtained secondary topatient terminating examination early. No acute infarct. No hydrocephalus.No other gross abnormality identified. Rocio Ann MD IMG MRI ORDERABLES Glendy l Result * T4 free (07/12/2024 11:28 PM CDT) Free T4 1.19 0.90 - 1.70 ng/dL 07/13/2024 12:17 PM CDT [facility] LABORATORY Blood BLOOD SPECIMEN / Unknown Venipuncture / Unknown 07/12/2024 11:28 PM CDT 07/12/2024 11:35 PM CDT Azra Curtis PA-C LAB - BLOOD ORDERABLES F inal Result [facility] LABORATORY [facility] [place] [facility] [address] [facility], Room [address] * (ABNORMAL) TSH with free T4 reflex (07/12/2024 11:28 PM CDT) TSH 9.38(H) 0.30 - 4.20 uIU/mL 07/13/2024 11:17 AM CDT [facility] LABORATORY Blood BLOOD SPECIMEN / Unknown Venipuncture / Unknown 07/12/2024 11:28 PM CDT 07/12/2024 11:35 PM CDT Azra Curtis PA-C LAB - BLOOD ORDERABLES F inal Result [facility] LABORATORY [facility] [place] [facility] [address] [facility], [address] * Keppra (Levetiracetam) Level (07/12/2024 11:28 PM CDT) Keppra (Levetiracetam) Level 13.3 10.0 - 40.0 ??g/mL 07/13/2024 4:46 AM CDT [facility] LABORATORY Blood BLOOD SPECIMEN / Unknown Venipuncture / Unknown 07/12/2024 11:28 PM CDT 07/12/2024 11:35 PM CDT Rocio Ann MD LAB - BLOOD ORDERABLES Final Result [facility] LABORATORY [facility] [place] [facility] [address] [facility], [address] [place] [address] documented in this encounter Visit Diagnoses Diagnosis Anxiety- Primary Anxiety state, unspecified Right sided numbness Cerebrovascular accident (CVA), unspecified mechanism (H) Seizure-like activity (H) Other convulsions Right sided numbness documented in this encounter Administered Medications Inactive Administered Medications - up to 3 most recent administrations Medication Order MAR Action Action Date Dose Rate Site aspirin EC tablet 243 mg 243 mg, Oral, DAILY, First dose on Sat07/13/24 at 0900, DO NOT CRUSH. $Given 07/13/2024 9:27 AM CDT 243 mg citalopram (celeXA) half-tab 5 mg 5 mg, Oral, DAILY, First dose on Sat07/13/24 at 1330 $Given 07/13/2024 3:00 PM CDT 5 mg diphenhydrAMINE (BENADRYL) injection 12.5 mg 12.5 mg, Intravenous, ONCE, On Sat07/12/24 at 2320, For 1 dose $Given 07/12/2024 11:32 PM CDT 12.5 mg levETIRAcetam (KEPPRA) half-tab 125 mg 125 mg, Oral, ONCE, On Sat07/13/24 at 0930, For 1 dose, Patient dropped tablet on floor --> dose to replace dropped medication. $Given 07/13/2024 9:27 AM CDT 125 mg levETIRAcetam (KEPPRA) half-tab 375 mg 375 mg, Oral, 2 TIMES DAILY, First dose on Sat07/13/24 at 0800 $Given 07/13/2024 8:33 AM CDT 375 mg LORazepam (ATIVAN) injection 0.5 mg 0.5 mg, Intravenous, ONCE, On Sat07/13/24 at 0145, For 1 dose, IV Route: Dilute with equal volume NS prior to use. This drug may cause significant respiratory depression. Monitor respiratory status and vital signs carefully for 1 hour after each dose. $Given 07/13/2024 1:49 AM CDT 0.5 mg ondansetron (ZOFRAN ODT) ODT tab 4 mg 4 mg, Oral, EVERY 6 HOURS PRN, nausea, vomiting, Starting on Sat07/13/24 at 0425, This is Step 1 of nausea and vomiting protocol. If nausea not resolved in 15 minutes, go to Step 2 prochlorperazine(COMPAZINE). Do not push through foil backing. Peel [...] vomiting, Administer over 2-5 Minutes, Starting on Sat07/13/24 at 0425, This is Step 1 of nausea and vomiting protocol. If nausea not resolved in 15 minutes, go to Step 2 prochlorperazine(COMPAZINE). perflutren diluted in saline (DEFINITY) injection 1.5 mL 1.5 mL, Intravenous, ONCE, On Sat07/13/24 at 1600, For 1 dose $Given 07/13/2024 3:40 PM CDT 1.5 mLs prochlorperazine (COMPAZINE) injection 10 mg 10 mg, Intravenous, ONCE, Administer over 1-2 Minutes, On Sat07/12/24 at 2320, For 1 dose $Given 07/12/2024 11:35 PM CDT 10 mg sodium chloride (PF) 0.9% PF flush 10 mL 10 mL, Intravenous, ONCE, On Sat07/13/24 at 1600, For 1 dose $Given 07/13/2024 3:40 PM CDT 10 mLs documented in this encounter Active and Recently Administered Medications Times are shown in CDT. Scheduled Medication Order 07/11/2024 07/12/2024 07/13/2024 aspirin EC tablet 243 mg 243 mg, Oral, DAILY, First dose on Sat07/13/24 at 0900, DO NOT CRUSH. 0927 ($Given - Provi andreia: Jesus Lagos RN) citalopram (celeXA) half-tab 5 mg 5 mg, Oral, DAILY, First dose on Sat07/13/24 at 1330 1500 ($Given - Provi andreia: Jesus Lagos RN) diphenhydrAMINE (BENADRYL) injection 12.5 mg (COMPLETED) 12.5 mg, Intravenous, ONCE, On Sat07/12/24 at 2320, For 1 dose 2332 ($Given - Provider: Shawna Bhakta RN) gadobutrol (GADAVIST) injection 10 mL 10 mL, Intravenous, ONCE, On Sat07/13/24 at 0055, For 1 dose, Supplied by, and administered by MRI. 0055 (Canceled Entry - Provider: Orders Generic Provider - Comment: Automatically canceled at discontinue of medication order) levETIRAcetam (KEPPRA) half-tab 125 mg (COMPLETED) 125 mg, Oral, ONCE, On Sat07/13/24 at 0930, For 1 dose, Patient dropped tablet on floor --> dose to replace dropped medication. 09 ($Given - Provi andreia: Jesus Lagos RN) levETIRAcetam (KEPPRA) half-tab 375 mg 375 mg, Oral, 2 TIMES DAILY, First dose on Sat07/13/24 at 0800 0833 ($Given - Provi andreia: Jesus Lagos RN)2000 (Canceled Entry - Provider: Orders Generic Provider - Comment: Automatically canceled at discontinue of medication order) LORazepam (ATIVAN) injection 0.5 mg (COMPLETED) 0.5 mg, Intravenous, ONCE, On Sat07/13/24 at 0145, For 1 dose, IV Route: Dilute with equal volume NS prior to use. This drug may cause significant respiratory depression. Monitor respiratory status and vital signs carefully for 1 hour after each dose. 0149 ($Given - Provi andreia: Shawna Bhakta RN) perflutren diluted in saline (DEFINITY) injection 1.5 mL (COMPLETED) 1.5 mL, Intravenous, ONCE, On Sat07/13/24 at 1600, For 1 dose 1540 ($Given - Provi andreia: Janna Fenton) prochlorperazine (COMPAZINE) injection 10 mg (COMPLETED) 10 mg, Intravenous, ONCE, Administer over 1-2 Minutes, On Sat07/12/24 at 2320, For 1 dose 2335 ($Given - Provider: Shawna Bhakta RN) sodium chloride (PF) 0.9% PF flush 10 mL (COMPLETED) 10 mL, Intravenous, ONCE, On Sat07/13/24 at 1600, For 1 dose 1540 ($Given - Provi andreia: Janna Fenton) PRN Medication Order 07/11/2024 07/12/2024 07/13/2024 LORazepam (ATIVAN) tablet 0.5-1 mg 0.5-1 mg, Oral, DAILY PRN, anxiety, other, nausea, dizziness, Starting on Sat07/13/24 at 0725 ondansetron (ZOFRAN ODT) ODT tab 4 mg(Linked Group 1) 4 mg, Oral, EVERY 6 HOURS PRN, nausea, vomiting, Starting on Sat07/13/24 at 0425, This is Step 1 of nausea and vomiting protocol. If nausea not resolved in 15 minutes, go to Step 2 prochlorperazine(COMPAZINE). Do not push through foil backing. Peel [...] required. ondansetron (ZOFRAN) injection 4 mg(Linked Group 1) 4 mg, Intravenous, EVERY 6 HOURS PRN, nausea, vomiting, Administer over 2-5 Minutes, Starting on Sat07/13/24 at 0425, This is Step 1 of nausea and vomiting protocol. If nausea not resolved in 15 minutes, go to Step 2 prochlorperazine(COMPAZINE). Linked Groups Order Group 1: ondansetron (ZOFRAN ODT) ODT tab 4 mgJump to med 4 mg, Oral, EVERY 6 HOURS PRN, nausea, vomiting, Starting on Sat07/13/24 at 0425, This is Step 1 of nausea and vomiting protocol. If nausea not resolved in 15 minutes, go to Step 2 prochlorperazine(COMPAZINE). Do not push through foil backing. Peel [...] vomiting, Administer over 2-5 Minutes, Starting on 07/13/24 at 0425, This is Step 1 of nausea and vomiting protocol. If nausea not resolved in 15 minutes, go to Step 2 prochlorperazine(COMPAZINE). documented in this encounter Additional Health Concerns Active Problems Noted Date Diagnosed Date Increased risk of re-admission 02/18/2024 Assessment Noted Time PHQ-9 Depression Total Score: 5 03/17/20 24 9:45 AM CDT documented as of this encounter Care Teams Publishing Systems Analyst Relationship Specialty Start Date End Date Winston Villatoro OD [facility] [address] [facility] 95 [place] [address] PCP - Ophthalmology Ophthalmology 02/11/13 Denise Woodson Ra, APRN WRAPPER SELECTOR [address] [place] [address] PCP - General Family Practice 09/21/20 Denise Woodson Ra, APRN WRAPPER SELECTOR [address] [facility] [place] [address] Assigned PCP 07/17/20 Usha Simon APRN WRAPPER SELECTOR [address] [facility], [place] [address] Nurse Practitioner Neurological Surgery 01/24/24 Dangelo Salinas MD [address] [place] [address] Neurology 01/27/24 Anastasia Stearns, RN Lead Roller 02/06/24 Germaine Lopez, W Community Health Worker Primary Care - CC 02/18/24 Joya Lira RP [address] [place] [address] Pharmacist Pharmacist 05/25/24 Joya Lira [facility] [address] [place] [address] Assigned MTM Pharmacist 06/08/24 Fabi Coates MD [address] [place] [address] 75 [place] [address] Genetics, Clinical 06/18/24 Robin Zepeda MD [address] [facility], [place] [address] Assigned Neuroscience Provider 07/08/24 Danna Cardenas PA-C [address] [place] [address] Assigned Heart and Vascular Provider 07/08/24 documented as of this encounter
--- OUTSIDE RECORDS SUMMARY | 2024-07-16 13:51 | XMS_ITS | Encounter Summary ---
Author Organization [facility] Address [address] [place] [address] Care Team Providers Care Developmental Services Worker Name Role Phone Winston Villatoro Se OD Unavailable [phone] Denise Woodson Ra, APRN [employer]D PASTE MIXER Unavailable [phone] Denise Woodson Ra, APRN [employer]D PASTE MIXER Primary Care Provid er Usha Simon APRN [employer] PASTE MIXER Unavailable [phone] Dangelo Salinas MD Unavailable Anastasia Stearns RN Unavailable Germaine Lopez [facility] Unavailable [phone] Joya Lira [facility] Unavailable Joya Lira [facility] Unavailable [phone] Fabi Coates MD Unavailable [phone] Robin Zepeda MD Unavailable Danna Cardenas PA-C Unavailable [phone] Felicita Desai RN Unavailable Unavailab le Encounter Details Date Type Department Care Team (Late st Contact Info) Description 07/16/2024 [facility] [address] [place] [address] Telma Guajardo RN Social History Tobacco Use Types Packs/Day [...] How often do you attend christianity or zoroastrianism serv ices? 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 Message from MONICA Danna Cardenas re: Danna Salmon PA-C [facility] Heart Team 2 Result reviewed. Zio monitor was negative for atrial fibrillation. All triggered events were duringa regular heart rhythm or with a PVC which is an excited beat from the bottom of the heart. These extra beats are benign. Please let patient know to update the clinic with any change of symptoms. Ziopatch - 1 8-beat run SVT and rare ectopics CTA coronary is scheduled for 08/07/2024 Patient to see MONICA Danna Cardenas on 10/09/2023 1320 called patient with ziopatch results and recommendations. Patient verbalized understanding andagreed with plan. documented in this encounter Plan of Treatment Upcoming Encounters Date Type Department Care Team (Late st Contact Info) Description 07/20/2024 12:00 PM NEGOTIATOR SALES Virtual Visit [facility] [address] [place] [phone] Denise Woodson Ra, ECOLOGICAL ECONOMIST ALMOND PASTE MIXER [address] [place], [place] [phone] 07/30/2024 8:30 AM NEGOTIATOR SALES Virtual Visit [facility] [address] 3rd [place] [phone] Randy Maradiaga, [address] [address] 08/04/2024 12:00 PM NEGOTIATOR SALES Virtual Visit [facility] [address] [place] [address] Arthur Salas, [address] [address] 08/04/2024 3:30 PM NEGOTIATOR SALES Virtual Visit [facility] [address] [place] [phone] Denise Woodson Ra, ECOLOGICAL ECONOMIST [employer] PASTE MIXER [address] [place] [address] 08/07/2024 1:00 PM NEGOTIATOR SALES Appointment [facility] [address] [facility] [address] [place] [phone] Danna Cardenas PA-C [address] [place] [address] 08/10/2024 12:30 PM NEGOTIATOR SALES Virtual Visit [facility] Neuropsychology [address] [phone] Robin Zepeda MD [address] [place] [address] 08/17/2024 12:30 PM NEGOTIATOR SALES Office Visit [facility] Neuropsychology [address] [phone] Robin Zepeda MD [address] [place] [address] Tulio Ogden, PhD [address] [address] 09/04/2024 11:00 AM NEGOTIATOR SALES [facility] [address] [place] [phone] Denise Woodson Ra, ECOLOGICAL ECONOMIST [employer]D PASTE MIXER [address] [place] [address] 09/18/2024 1:00 PM NEGOTIATOR SALES [facility] [address] [place] [phone] Denise Woodson Ra, ECOLOGICAL ECONOMIST [employer] PASTE MIXER [address] [place], [place] [phone] 09/29/2024 9:00 AM NEGOTIATOR SALES Virtual Visit [facility] [place] [address] [facility] 3rd [place] [phone] Randy Maradiaga, [address] [place] [address] 10/09/2024 1:20 PM NEGOTIATOR SALES Office Visit [facility] [address] [facility] [address] [place] [phone] Danna Cardenas PA-C [address] [facility] [place], [place] [address] 10/30/2024 4:00 PM NEGOTIATOR SALES Virtual Visit [facility] [place] [address] [place] [phone] Lisa Zambrano MD [address] [place] [address] 12/29/2024 12:45 PM CDT Office Visit [facility] [address] [place] [address] Ave [address] [phone] Fabi Coates MD [address] [place] [address] 12/29/2024 1:45 PM CDT Office Visit [facility] [address] [place], [place] [address]e [address] [phone] Fabi Coates MD [address] [place] [address] 06/01/2025 11:15 AM CDT Appointment [facility] [address] [facility] [address] [place] [phone] Robin Zepeda MD [address] [place] [address] 06/04/2025 11:00 AM CDT Office Visit [facility] [address] 3rd [place] [phone] Robin Zepeda MD [address] [place] [address] Usha Simon APRN ALMOND PASTE MIXER [address] [place] [phone] documented as of this encounter Goals Goal [...] Health weekly - PT, OT and EVENT DESIGNER, continuing through [facility] [place]: - Continue following up with PCP: 09/04/2024 - Vascular Dr. Zambrano 05/01/24 - follow up recommended in 6 months: 11/11/24 TBD #[phone]. - call independently - MTM 05/25/2024, completed - Neurosurgery Dr. Zepeda, following up with DATA DEVELOPER: 06/04/2025 11:00 AM (Arrive by 10:45 AM) Usha Simon APRN ALMOND PASTE MIXER 2. I will take my medications as prescribed. 3. I will discuss, review, schedule and complete recommended overdue health maintenance with my Primary Care Provider. 4. I will contact my care team with questions, concerns, support needs. I will use the clinic as a resource and I understand I can contact my clinic with 24/7 after hours services available. Fur Sewer will remain available as needed. documented as of this encounter Visit Diagnoses Not on filedocumented in this encounter Additional Health Concerns Active Problems Noted Date Diagnosed Date Increased risk of re-admission 02/18/2024 Assessment Noted Time PHQ-9 Depression Total Score: 14 024 11:46 AM CDT documented as of this encounter Care Teams Developmental Services Worker Relationship Specialty Start Date End Date Winston Villatoro OD [facility] [address] [facility] [address] [place] [address] PCP - Ophthalmology Ophthalmology 02/11/13 Denise Woodson Ra, APRN ALMOND PASTE MIXER [address] [facility] [address] PCP - General Family Practice 09/21/20 Denise Woodson Ra, APRN ALMOND PASTE MIXER [address] [place] [address] Assigned PCP 07/17/20 Usha Simon APRN ALMOND PASTE MIXER [address] [facility], [place] [address] Nurse Practitioner Neurological Surgery 01/24/24 Dangelo Salinas MD [address] [facility] 200 [place], [place] [id number] Neurology 01/27/24 Anastasia Stearns, RN Lead Fur Sewer 02/06/24 Germaine Lopez, W Community Health Worker Primary Care - CC 02/18/24 Joya Lira [facility] [address] [place] [address] Pharmacist Pharmacist 05/25/24 Joya Lira [facility] [address] [place] [address] Assigned MTM Pharmacist 06/08/24 Fabi Coates MD [address] [facility] 75 [place], [place] [address] Genetics, Clinical 06/18/24 Robin Zepeda MD [address]09 [facility] [id number] [place] [address] Assigned Neuroscience Provider 07/08/24 Danna Cardenas PA-C [address] [place] [address] Assigned Heart and Vascular Provider 07/08/24 Felicita Desai, RN Lead Fur Sewer 07/14/24 documented as of this encounter
--- OUTSIDE RECORDS SUMMARY | 2024-07-16 13:51 | XMS_ITS | Encounter Summary ---
Author Organization [place] Address [address] [place] [address] Care Team Providers Care Aerial Crop Duster Name Role Phone Shauna Winston Se OD Unavailable [phone] Denise Woodson Ra, APRN DIE MAKER BENCH STAMPING Unavailable + [phone] Denise Woodson Ra, APRN DIE MAKER BENCH STAMPING Primary Care Provid er Usha Simon APRN DIE MAKER BENCH STAMPING Unavailable [phone] Dangelo Salinas MD Unavailable Anastasia Stearns RN Unavailable Germaine Lopez [facility] Unavailable Joya Lira [facility] Unavailable Joya Lira [facility] Unavailable [phone] Fabi Coates MD Unavailable [phone] Robin Zepeda MD Unavailable [phone] Danna Cardenas PA-C Unavailable [phone] Felicita Desai RN Unavailable Unavailab le Reason for Visit * Mental Health Outpatient (Routine: Next available opening) - Pending Review Specialty Diagnoses / Procedures Referred By Nila t Referred To Contact Behavioral Health Diagnoses Anxiety Azra Bustamante PA-C [address] [address] Phone: tel: fax: Referral ID Status Reason Start Date Expiration Date V isits Requested Visits Authorized [id number] Pending Review 07/13/2024 07/13/2025 1 1 Encounter Details Date Type Department Care Team (Late st Contact Info) Description 07/16/2024 11:00 AM CDT Virtual Visit [facility] and Addiction [facility] [place] [address] [place] [address] Arthur Salas, [facility] [address] [place] [address] Anxiety Social History Tobacco Use Types Packs/Day Years [...] How often do you attend mandaen or spiritism serv ices? 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 Not on file Not on file Not on file Not on file Not on file Not on file documented as of this encounter Plan of Treatment Upcoming Encounters Date Type Department Care Team (Late st Contact Info) Description 07/20/2024 12:00 PM POWER NUT RUNNER OPERATOR [facility] [address] [place] [phone] Denise Woodson Ra, COVERED BUTTON MAKER DIE MAKER BENCH STAMPING [address] [place] [address] 07/30/2024 8:30 AM POWER NUT RUNNER OPERATOR Virtual Visit [facility] Neurology [address] [place] [phone] Randy Maradiaga, [address] [address] 08/04/2024 12:00 PM POWER NUT RUNNER OPERATOR Virtual Visit [facility] [address] [place] [address] Arthur Salas, [address] [address] 08/04/2024 3:30 PM POWER NUT RUNNER OPERATOR [facility] [address] [place] [phone] Denise Woodson Ra, COVERED BUTTON MAKER DIE MAKER BENCH STAMPING [address] [place] [address] 08/07/2024 1:00 PM POWER NUT RUNNER OPERATOR Appointment [facility] Heart Care [address] [facility] [address] [place] [phone] Danna Cardenas PANilesC [address]405 [place] [address] 08/10/2024 12:30 PM POWER NUT RUNNER OPERATOR Virtual Visit [facility] Neuropsychology [address] [phone] Robin Zepeda MD [address] [place] [address] 08/17/2024 12:30 PM POWER NUT RUNNER OPERATOR Office Visit [facility] Neuropsychology [address] [phone] Robin Zepeda MD [address] [place] [address] Tulio Ogden, PhD [address] [address] 09/04/2024 11:00 AM POWER NUT RUNNER OPERATOR Office Visit [address] [phone] Denise Woodson Ra, COVERED BUTTON MAKER DIE MAKER BENCH STAMPING [address] [place] [address] 09/18/2024 1:00 PM POWER NUT RUNNER OPERATOR Office Visit [facility] [address] [place] [phone] Denise Woodson Ra, COVERED BUTTON MAKER DIE MAKER BENCH STAMPING [address] [place] [address] 09/29/2024 9:00 AM POWER NUT RUNNER OPERATOR Virtual Visit [facility] Neurology [address] [phone] Randy Maradiaga DO [address] [place] [address] 10/09/2024 1:20 PM POWER NUT RUNNER OPERATOR Office Visit [facility] [address] [facility] [address] [place] [phone] Danna Cardenas PA-C [address] [facility] [place] [address] 10/30/2024 4:00 PM POWER NUT RUNNER OPERATOR Virtual Visit [facility] Vascular [facility] [address] [place] [phone] Lisa Zambrano MD [address] [place] [address] 12/29/2024 12:45 PM CDT Office Visit [facility] [address] [place] [address] [phone] Fabi Coates MD [address] [place] [address] 12/29/2024 1:45 PM CDT Office Visit [facility] Pediatric Specialty Clinic [address] [place] [address] [phone] Fabi Coates MD [address] [place] [address] 06/01/2025 11:15 AM CDT Appointment [facility] [address] [facility] [address] [place] [address] Robin Zepeda MD [address] [place] [address] [address] 06/04/2025 11:00 AM CDT Office Visit [facility] Neurosurgery [address] 3rd [place] [phone] Robin Zepeda MD [address] [place], [place] [address] Usha Simon APRN DIE MAKER BENCH STAMPING [address] [address] documented as of this encounter Goals Goal [...] Mental Health weekly - PT, OT and CLIENT ONBOARDING ANALYST, continuing through [facility] [place]: - Continue following up with PCP: 09/04/2024 - Vascular Dr. Zambrano 05/01/24 - follow up recommended in 6 months: 11/11/24 TBD #[phone]. - call independently - MTM 05/25/2024, completed - Neurosurgery Dr. Zepeda, following up with PAPER GUILLOTINE OPERATOR: 06/04/2025 11:00 AM (Arrive by 10:45 AM) Usha Simon APRN DIE MAKER BENCH STAMPING 2. I will take my medications as prescribed. 3. I will discuss, review, schedule and complete recommended overdue health maintenance with my Primary Care Provider. 4. I will contact my care team with questions, concerns, support needs. I will use the clinic as a resource and I understand I can contact my clinic with 24/7 after hours services available. Transfer Worker will remain available as needed. documented as of this encounter Visit Diagnoses Diagnosis Anxiety Anxiety state, unspecified documented in this encounter Additional Health Concerns Active Problems Noted Date Diagnosed Date Increased risk of re-admission 02/18/2024 Assessment Noted Time PHQ-9 Depression Total Score: 14 024 11:46 AM CDT documented as of this encounter Care Teams Aerial Crop Duster Relationship Specialty Start Date End Date Winston Villatoro OD [facility] [place] [address] [place] [address] PCP - Ophthalmology Ophthalmology 02/11/13 Denise Woodson Ra, APRN DIE MAKER BENCH STAMPING [address] [place] [address] PCP - General Family Practice 09/21/20 Denise Woodson Ra, APRN DIE MAKER BENCH STAMPING [address] [place] [address] Assigned PCP 07/17/20 Usha Simon APRN DIE MAKER BENCH STAMPING [address]09 [facility] [address] Nurse Practitioner Neurological Surgery 01/24/24 Dangelo Salinas MD [address] [place] [address] Neurology 01/27/24 Anastasia Stearns, RN Lead Transfer Worker 02/06/24 Germaine Lopez, W Community Health Worker Primary Care - CC 02/18/24 Joya Lira RPH [address] [place], [place] [phone] Pharmacist Pharmacist 05/25/24 Joya Lira RPH [address] [place] [address] Assigned MTM Pharmacist 06/08/24 Fabi Coates MD 420 [facility] 75 [place] [address] Genetics, Clinical 06/18/24 Robin Zepeda MD [address] [place] [id number] [address] Assigned Neuroscience Provider 07/08/24 Danna Cardenas PA-C [address] [place] [address] Assigned Heart and Vascular Provider 07/08/24 Felicita Desai RN Lead Transfer Worker 07/14/24 documented as of this encounter
--- OUTSIDE RECORDS SUMMARY | 2024-07-16 13:51 | XMS_ITS | Encounter Summary ---
Author Organization [facility] Address [address] [place] [address] Care Team Providers Care Sql Developer Dba Name Role Phone ShaunaWinston moralez OD Unavailable Denise Woodson Ra, APRN RN WOMEN SERVICES Unavailable [phone] Denise Woodson Ra, APRN RN WOMEN SERVICES Primary Care Provid er Usha Simon APRN RN WOMEN SERVICES Unavailable [phone] Dangelo Salinas MD Unavailable Anastasia Stearns RN Unavailable [phone] Germaine Lopez [facility] Unavailable Joya Lira [facility] Unavailable Joya Lira [facility] Unavailable [phone] Fabi Coates MD Unavailable [phone] Robin Zepeda MD Unavailable [phone] Danna Cardenas PA-C Unavailable Felicita Desai RN Unavailable Unavailab Encounter Details Date Type Department Care Team (Late st Contact Info) Description 07/16/2024 Ajay [facility] Addiction [facility] [address] [place] [address] Arthur Salas, [facility] [address] [place] [address] Social History Tobacco Use Types Packs/Day Years [...] How often do you attend episcopal or spiritism serv ices? Never 02/28/2024 Do [...] Answer Date Recorded PHQ-2 Score 4 07/16/2024 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 Not on file Not on file Not on file Not on file Not on file documented as of this encounter Plan of Treatment Upcoming Encounters Date Type Department Care Team (Late st Contact Info) Description 07/20/2024 12:00 PM WAISTLINE JOINER LOCKSTITCH Virtual Visit [facility] [address] [place] [phone] Denise Woodson Ra, FUR MIXER RN WOMEN SERVICES [address] [place] [address] 07/30/2024 8:30 AM WAISTLINE JOINER LOCKSTITCH Virtual Visit [facility] Neurology Clinic [address] [phone] Randy Maradiaga DO 909 [place] [address] 08/04/2024 12:00 PM WAISTLINE JOINER LOCKSTITCH Virtual Visit [facility] Mental Health [facility] Addiction Clinic [address] [place] [address] Arthur Salas, [address] [address] 08/04/2024 3:30 PM WAISTLINE JOINER LOCKSTITCH Virtual Visit [facility] [address] [place] [phone] Denise Woodson Ra, FUR MIXER [facility] [address] [place] [address] 08/07/2024 1:00 PM WAISTLINE JOINER LOCKSTITCH Appointment [facility] Heart Care [address] [facility] [address] [place] [phone] Danna Cardenas PA-C 6405 [place], [place] [address] 08/10/2024 12:30 PM WAISTLINE JOINER LOCKSTITCH [facility] Visit [facility] Neuropsychology [place] [address] [phone] Robin Zepeda MD [address] [place] [address] [id number] [place] [address] 08/17/2024 12:30 PM WAISTLINE JOINER LOCKSTITCH Office Visit [facility] Neuropsychology [address] [phone] Robin Zepeda MD [address] [facility] [place] [address] [place] [address] Tulio Ogden, PhD [address] [address] 09/04/2024 11:00 AM WAISTLINE JOINER LOCKSTITCH Office Visit [facility] [address] [place] [phone] Denise Woodson Ra, FUR MIXER RN WOMEN SERVICES [address] [place], [place] [phone] 09/18/2024 1:00 PM WAISTLINE JOINER LOCKSTITCH Office Visit [facility] [address] [place] [phone] Denise Woodson Ra, FUR MIXER RN WOMEN SERVICES [address] [place], [place] [phone] 09/29/2024 9:00 AM WAISTLINE JOINER LOCKSTITCH [facility] Visit [facility] Neurology [address] [place] [phone] Randy Maradiaga DO [address] [place] [address] 10/09/2024 1:20 PM WAISTLINE JOINER LOCKSTITCH [facility] Visit [facility] Heart [facility] [address] [facility] [address] [place] [phone] Danna Cardenas PA-C [address] [place] [address] 7909[address] 10/30/2024 4:00 PM WAISTLINE JOINER LOCKSTITCH [facility] Vascular [facility] 6405 [facility] [address] [facility] [place] [phone] Lisa Zambrano MD [address] [place] , [place] [address] 12/29/2024 12:45 PM CDT Office Visit [facility] Pediatric Specialty Clinic [address] [place] [phone] Fabi Coates MD [address] [address]65[address] 12/29/2024 1:45 PM CDT Office Visit [facility] Pediatric Specialty [address] [phone] Fabi Coates MD [address] [place] [address] 06/01/2025 11:[address] [facility] [address] [facility] [address] [place] [address] Robin Zepeda MD [address] [place] [address] 6[address] 06/04/2025 11:00 AM CDT Office Visit [facility] Neurosurgery [address] 3rd [place] [phone] Robin Zepeda MD [address] [place] [address] Usha Simon APRN [address] [address] documented as of this encounter Goals Goal [...] Mental Health weekly - PT, OT and ICE CREAM MAKER, continuing through [facility] [place]: - Continue following up with PCP: 09/04/2024 - Vascular Dr. Zambrano 05/01/24 - follow up recommended in 6 months: 11/11/24 TBD #[phone]. - call independently - MTM 05/25/2024, completed - Neurosurgery Dr. Zepeda, following up with METAL SHEET ROLLER OPERATOR: 06/04/2025 11:00 AM (Arrive by 10:45 AM) Usha Simon, FUR MIXER RN WOMEN SERVICES 2. I will take my medications as prescribed. 3. I will discuss, review, schedule and complete recommended overdue health maintenance with my Primary Care Provider. 4. I will contact my care team with questions, concerns, support needs. I will use the clinic as a resource and I understand I can contact my clinic with 24/7 after hours services available. Director Emergency will remain available as needed. documented as of this encounter Visit Diagnoses Not on filedocumented in this encounter Additional Health Concerns Active Problems Noted Date Diagnosed Date Increased risk of re-admission 02/18/2024 Assessment Noted Time PHQ-9 Depression Total Score: 14 024 11:46 AM CDT documented as of this encounter Care Teams Sql Developer Dba Relationship Specialty Start Date End Date Winston Villatoro OD [facility] [address] [facility] [address] [place] [address] PCP - Ophthalmology Ophthalmology 02/11/13 Denise Woodson Ra, FUR MIXER RN WOMEN SERVICES [address] [place] [address] PCP - General Family Practice 09/21/20 Denise Woodson Ra, APRN RN WOMEN SERVICES [address] [place] [address] Assigned PCP 07/17/20 Usha Simon APRN RN WOMEN SERVICES [address] [place] [address] 367565 Nurse Practitioner Neurological Surgery 01/24/24 Dangelo Salinas MD 1650 [facility] 200 [place], [place] [phone] Neurology 01/27/24 Anastasia Stearns, RN Lead Director Emergency 02/06/24 Germaine Lopez, W Community Health Worker Primary Care - CC 02/18/24 Joya Lira RPH [address] [place] [address] Pharmacist Pharmacist 05/25/24 Joya Lira RPH [address] [place], [place] [phone] Assigned MTM Pharmacist 06/08/24 Fabi Coates MD [address] [place] [address] 75 [place], [place] [phone] Genetics, Clinical 06/18/24 Robin Zepeda MD [address] [place] [address] [id number] Assigned Neuroscience Provider 07/08/24 Danna Cardenas PA-C [address] [place] [address] Assigned Heart and Vascular Provider 07/08/24 Felicita Desai, RN Lead Director Emergency 07/14/24 documented as of this encounter
--- OUTSIDE RECORDS SUMMARY | 2024-07-16 13:51 | XMS_ITS | Encounter Summary ---
Author Organization [place] Address [address] [place] [address] Care Team Providers Care Utilization Specialist Name Role Phone Shauna Winston Se OD Unavailable Denise Woodson Ra, APRN CORDWOOD CUTTER HELPER Unavailable + [phone] Deinse Woodson Ra, APRN CORDWOOD CUTTER HELPER Primary Care Provid er Usha Simon APRN CORDWOOD CUTTER HELPER Unavailable [phone] Dangelo Salinas MD Unavailable Anastasia Stearns RN Unavailable [phone] Germaine Lopez [facility] Unavailable Joya Lira [facility] Unavailable Joya Lira [facility] Unavailable Fabi Coates MD Unavailable [phone] Robin Zepeda MD Unavailable [phone] Danna Cardenas PA-C Unavailable [phone] Felicita Desai RN Unavailable Unavailab le Reason for Visit * Reason Onset Date Comments Appointment 07/14/2024 Seizure-like act ivity (H) R sided numbness/tinglinfg Encounter Details Date Type Department Care Team (Late st Contact Info) Description 07/14/2024 [facility] Neurology [address] 3rd [place] [address] None Appointment (Seizure-like activity (H) R sided numbness/tinglinfg/) Social History Tobacco Use Types Packs/Day Years [...] How often do you attend yazidism or methodist serv ices? 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 Pt is already a ptof Dr. Maradiaga, marketing underwriter unsure if the pt should be scheduled for the Seizure-like activity withMNCEP or continue with Dr. Maradiaga? Please call [facility] at [phone] for scheduling. Action Taken: Message routed to: [facility] Neurology Travel Screening: Not Applicable Date of Service: documented in this encounter Plan of Treatment Upcoming Encounters Date Type Department Care Team (Late st Contact Info) Description 07/20/2024 12:00 PM RESOURCE ECONOMIST Virtual Visit [facility] [address] [place] [phone] Denise Woodson Ra, CAN LINE EXAMINER CORDWOOD CUTTER HELPER [address] [place] [address] 07/30/2024 8:30 AM RESOURCE ECONOMIST Virtual Visit [facility] Neurology Clinic [address] [phone] Randy Maradiaga, [address] [address] 08/04/2024 12:00 PM RESOURCE ECONOMIST Virtual Visit [facility] Mental Health and Addiction [address] [place] [address] Arthur Salas, [address] [address] 08/04/2024 3:30 PM RESOURCE ECONOMIST [facility] [address] [place] [phone] Denise Woodson Ra, CAN LINE EXAMINER CORDWOOD CUTTER HELPER [address] [place] [address] 08/07/2024 1:00 PM RESOURCE ECONOMIST Appointment [facility] Heart Care [address] [facility] [address] [place] [phone] Danna Cardenas PA-C [address] [place] [address] 08/10/2024 12:30 PM RESOURCE ECONOMIST Virtual Visit [facility] Neuropsychology [address] [phone] Robin Zepeda MD [address] [place] [id number] 08/17/2024 12:30 PM RESOURCE ECONOMIST Office Visit [facility] Neuropsychology [address] [phone] Robin Zepeda MD [address] [place] [address] Tulio Ogden, PhD [address] [address] 09/04/2024 11:00 AM RESOURCE ECONOMIST Office Visit [facility] [address] [place] [phone] eDnise Woodson Ra, CAN LINE EXAMINER CORDWOOD CUTTER HELPER [address] [place] [address] 09/18/2024 1:00 PM RESOURCE ECONOMIST Office Visit [facility] [address] [place] [phone] Denise Woodson Ra, CAN LINE EXAMINER CORDWOOD CUTTER HELPER [address] [place], [place] [phone] 09/29/2024 9:00 AM RESOURCE ECONOMIST Virtual Visit [facility] Neurology Clinic [place] [address] [facility] 3rd [place] [phone] Randy Maradiaga, [address] [address] 10/09/2024 1:20 PM RESOURCE ECONOMIST Office Visit [facility] Heart [facility] [address] [facility] [address] [place] [phone] Danna Cardenas PA-C [address] [place], [place] [address] 10/30/2024 4:00 PM RESOURCE ECONOMIST Virtual Visit [facility] Vascular Clinic [place] [address] [place] [phone] Lisa Zambrano MD [address] [place] [address] 12/29/2024 12:45 PM CDT Office Visit [facility] [address] [place], [place] [address] Explorer [address] [phone] Fabi Coates MD [address] [place] [address] 12/29/2024 1:45 PM CDT Office Visit [facility] Pediatric Specialty Clinic [address] [place], [place] [address] Explorer [address] [phone] Fabi Coates MD [address] [place] [address] 06/01/2025 11:15 AM CDT Appointment [facility] Imaging [address] [facility] [address] [place] [phone] Robin Zepeda MD [address] [place] [address] 830385 06/04/2025 11:00 AM CDT Office Visit [facility] Neurosurgery Clinic [address] 3rd [place] [phone] Robin Zepeda MD [address] [place] [address] Usha Simon APRN CORDWOOD CUTTER HELPER [address] [place] [address] documented as of this encounter Goals Goal [...] Mental Health weekly - PT, OT and TNT LINE SUPERVISOR, continuing through [facility] [place]: - Continue following up with PCP: 09/04/2024 - Vascular Dr. Zambrano 05/01/24 - follow up recommended in 6 months: 11/11/24 TBD #[phone]. - call independently - MTM 05/25/2024, completed - Neurosurgery Dr. Zpeeda, following up with SOLAR MANAGER: 06/04/2025 11:00 AM (Arrive by 10:45 AM) Usha Simon APRN CORDWOOD CUTTER HELPER 2. I will take my medications as prescribed. 3. I will discuss, review, schedule and complete recommended overdue health maintenance with my Primary Care Provider. 4. I will contact my care team with questions, concerns, support needs. I will use the clinic as a resource and I understand I can contact my clinic with 24/7 after hours services available. Clinical Unit Educator will remain available as needed. documented as of this encounter Visit Diagnoses Not on filedocumented in this encounter Additional Health Concerns Active Problems Noted Date Diagnosed Date Increased risk of re-admission 02/18/2024 Assessment Noted Time PHQ-9 Depression Total Score: 5 03/17/20 24 9:45 AM CDT documented as of this encounter Care Teams Utilization Specialist Relationship Specialty Start Date End Date ShaunaWinston moralez OD [facility] [address] [place] [address] PCP - Ophthalmology Ophthalmology 02/11/13 Denise Woodson Ra, APRN CORDWOOD CUTTER HELPER [address] [place] [address] PCP - General Family Practice 09/21/20 Denise Woodson Ra, APRN CORDWOOD CUTTER HELPER [address] [facility] [place] [address] Assigned PCP 07/17/20 Usha Simon APRN CORDWOOD CUTTER HELPER [address] [facility]121[place], [place] [address] Nurse Practitioner Neurological Surgery 01/24/24 Dangelo Salinas MD [address] [place], [place] [phone] Neurology 01/27/24 Anastasia Stearns, RN Lead Clinical Unit Educator 02/06/24 Germaine Lopez, CHW Community Health Worker Primary Care - CC 02/18/24 Joya Lira [facility] [address] [address] Pharmacist Pharmacist 05/25/24 Joya Lira [facility] [address] [place] [address] Assigned MTM Pharmacist 06/08/24 Fabi Coates MD [address] [facility] [address] [place] [address] Genetics, Clinical 06/18/24 Robin Zepeda MD [address] [facility] [id number] [place] [address] Assigned Neuroscience Provider 07/08/24 Danna Cardenas PA-C [address] [place] [address] Assigned Heart and Vascular Provider 07/08/24 Felicita Desai, RN Lead Clinical Unit Educator 07/14/24 documented as of this encounter
--- OUTSIDE RECORDS SUMMARY | 2024-07-16 13:51 | XMS_ITS | Encounter Summary ---
Author Organization [facility] Address [address] [place] [address] Care Team Providers Care Carpet Sewer Name Role Phone Winston Villatoro Se OD Unavailable [phone] Denise Woodson Ra, APRN POLICE SUPERINTENDENT Unavailable + [phone] Denise Woodson Ra, APRN POLICE SUPERINTENDENT Primary Care Provid er Usha Simon APRN POLICE SUPERINTENDENT Unavailable Dangelo Salinas MD Unavailable Anastasia Stearns RN Unavailable Germaine Lopez CH[facility] Unavailable Lisa Zambrano MD Unavailable [phone] Raul Hoyos MD Unavailable Joya Lira [facility] Unavailable [phone] [facility] Unavailable [phone] Fabi Coates MD Unavailable [phone] Reason for Visit * Reason Onset Date Comments Clinic Care Coordination - Follow-up 07/07/2024 Encounter Details Date Type Department Care Team (Late st Contact Info) Description 07/07/2024 [facility] Neurology [address] 3rd [place] [address] Randy Maradiaga, [address] [address] Clinic Care Coordination - Follow-up Social History [...] How often do you attend latter-day or yazidi serv ices? 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 Not on file Not on file Not on file Not on file Not on file Not on file documented as of this encounter Miscellaneous Notes * Telephone Encounter - Liliane Cobos - 07/07/2024 5:27 PM CDT Left Voicemail (1st Attempt) and Sent Mychart (1st Attempt) for the patient to call back and schedule the following: Appointment type: Return Neurology-virtual Provider: Ashwini Return date: around 09/22/2024 Specialty phone number: [phone] Additional appointment(s) needed: NA Additonal Notes: 3 month follow up Liliane Cobos on 07/07/2024 at 5:28 PM documented in this encounter Plan of Treatment Upcoming Encounters Date Type Department Care Team (Late st Contact Info) Description 07/20/2024 12:00 PM POWER SHOVEL OPERATOR Virtual Visit [facility] [address] [place] [phone] Denise Woodson Ra, MANAGER SHELL POLICE SUPERINTENDENT [address] [place], [place] [phone] 07/30/2024 8:30 AM POWER SHOVEL OPERATOR Virtual Visit [facility] Neurology [address] 3rd [place] [address] Randy Maradiaga, DO [address] [place] [address] 08/04/2024 12:00 PM POWER SHOVEL OPERATOR Virtual Visit [facility] Mental Health and Addiction Clinic [address] [place] [address] [address] [address] 08/04/2024 3:30 PM POWER SHOVEL OPERATOR [facility] [address] [place] [phone] Denise Woodson Ra, MANAGER SHELL POLICE SUPERINTENDENT [address] [place], [place] [phone] 08/07/2024 1:00 PM POWER SHOVEL OPERATOR Appointment [facility] Heart Care [facility] [facility] [address] [place] [phone] Danna Cardenas PA-C [address] [place] [address] 08/10/2024 12:30 PM POWER SHOVEL OPERATOR Virtual Visit [facility] Neuropsychology [address] [phone] Robin Zepeda MD [address] [place] [address] 08/17/2024 12:30 PM POWER SHOVEL OPERATOR Office Visit [facility] Neuropsychology [address] [phone] Robin Zepeda MD [address] [place] [address] Tulio Ogden, PhD [address] [address] 09/04/2024 11:00 AM POWER SHOVEL OPERATOR Office Visit [facility] [address] [place] [phone] Denise Woodson Ra, MANAGER SHELL POLICE SUPERINTENDENT [address] [place] [address] 09/18/2024 1:00 PM POWER SHOVEL OPERATOR Office Visit [facility] [address] [place] [phone] Denise Woodson Ra, MANAGER SHELL POLICE SUPERINTENDENT [address] [place] [address] 09/29/2024 9:00 AM POWER SHOVEL OPERATOR Virtual Visit [facility] Neurology [address] [phone] Randy Maradiaga DO [address]09 [place], [place] 3023[address] 10/09/2024 1:20 PM POWER SHOVEL OPERATOR Office Visit [facility] Heart [facility] [address] [facility] [address] [facility] [address] [place] [phone] Danna Cardenas PA-C [address] [facility] [place], [place] [address]12[address] 10/30/2024 4:00 PM POWER SHOVEL OPERATOR Virtual Visit [facility] Vascular [facility] [address] [place] [phone] Lisa Zambrano MD [address] [place] [address] 12/29/2024 12:45 PM CDT Office Visit [facility] Pediatric Specialty Clinic [address] [place] [address] [phone] Fabi Coates MD [address] [place] [address] 12/29/2024 1:45 PM CDT Office Visit [facility] Pediatric Specialty Clinic [address] [place] [phone] Fabi Coates MD [address] [place] [address] 757875 06/01/2025 11:15 AM CDT Appointment [facility] Imaging [address] [facility] [address] [place] [phone] Robin Zepeda MD [address] [facility] VN6777PM [place], [place] [address] 06/04/2025 11:00 AM CDT Office Visit [facility] Neurosurgery Clinic [address] [place] [address] Robin Zepeda MD [address] [place] [address] 686465 Usha Simon APRN POLICE SUPERINTENDENT [address] [place] [address] 237775 documented as of this encounter Goals Goal [...] Mental Health weekly - PT, OT and ECHOCARDIOGRAPH TECH, continuing through [facility] [place]: - Continue following up with PCP: 09/04/2024 - Vascular Dr. Zambrano 05/01/24 - follow up recommended in 6 months: 11/11/24 TBD #[phone]. - call independently - MTM 05/25/2024, completed - Neurosurgery Dr. Zepeda, following up with DROP WIRER: 06/04/2025 11:00 AM (Arrive by 10:45 AM) Usha Simon APRN POLICE SUPERINTENDENT 2. I will take my medications as prescribed. 3. I will discuss, review, schedule and complete recommended overdue health maintenance with my Primary Care Provider. 4. I will contact my care team with questions, concerns, support needs. I will use the clinic as a resource and I understand I can contact my clinic with 08/04 after hours services available. Timber Watchman will remain available as needed. documented as of this encounter Visit Diagnoses Not on filedocumented in this encounter Additional Health Concerns Active Problems Noted Date Diagnosed Date Increased risk of re-admission 02/18/2024 Assessment Noted Time PHQ-9 Depression Total Score: 5 03/17/20 24 9:45 AM CDT documented as of this encounter Care Teams Carpet Sewer Relationship Specialty Start Date End Date Winston Villatoro OD [facility] [place] [address] [place] [address] PCP - Ophthalmology Ophthalmology 02/11/13 Denise Woodson Ra, APRN POLICE SUPERINTENDENT [address] [place] [address] PCP - General Family Practice 09/21/20 Denise Woodson Ra, APRN POLICE SUPERINTENDENT [address] [place] [address] Assigned PCP 07/17/20 Usha Simon APRN POLICE SUPERINTENDENT [address] [facility]121[place], [place] [address] Nurse Practitioner Neurological Surgery 01/24/24 Dangelo Salinas MD [address] [place] [address] Neurology 01/27/24 Anastasia Stearns, RN Lead Timber Watchman 02/06/24 Germaine Lopez, W Community Health Worker Primary Care - CC 02/18/24 Lisa Zambrano MD [address] [place] [id number] Assigned Heart and Vascular Provider 05/08/24 07/07/24 Raul Hoyos MD [address] [place] [address] [address] Assigned Neuroscience Provider 05/08/24 07/07/24 Joya Lira [facility] [address] [place] [address] Pharmacist Pharmacist 05/25/24 Joya Lira R[facility] [address] [place] [address] Assigned MTM Pharmacist 06/08/24 Fabi Coates MD [address] [place] [address] 75 [place] [address] Genetics, Clinical 06/18/24 documented as of this encounter
--- OUTSIDE RECORDS SUMMARY | 2024-07-16 13:51 | XMS_ITS | Encounter Summary ---
Author Organization [facility] Address [address] [place] [address] Care Team Providers Care Director Of Rehabilitation And Wellness Name Role Phone Winston Villatoro OD Unavailable [phone] Denise Woodson Ra, APRN DIRECTOR OF STRATEGIC INITIATIVES Unavailable + [phone] Denise Woodson Ra, APRN DIRECTOR OF STRATEGIC INITIATIVES Primary Care Provid er Usha Simon APRN DIRECTOR OF STRATEGIC INITIATIVES Unavailable [phone] Dangelo Salinas MD Unavailable Anastasia Stearns RN Unavailable [phone] Germaine Lopez CHW Unavailable [phone] Lisa Zambrano MD Unavailable [phone] Raul Hoyos MD Unavailable Joya Lira [facility] Unavailable Joya Lira [facility] Unavailable Fabi Coates MD Unavailable [phone] Encounter Details Date Type Department Care Team (Late st Contact Info) Description 07/07/2024 Documentation Only [facility] [address] 3rd [place] [address] Bryan Farley CMA Social History Tobacco Use Types Packs/Day Years [...] How often do you attend yarsanism or taoism serv ices? 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 Not on file Not on file Not on file Not on file Not on file documented as of this encounter Progress Notes * Bryan Farley CMA - 07/07/2024 9:19 AM CDT Diagnosis note from [facility] was sign, faxed and sent to be scan in pt chart Bryan neurosurgery documented in this encounter Plan of Treatment Upcoming Encounters Date Type Department Care Team (Late st Contact Info) Description 07/20/2024 12:00 PM EDUCATIONAL ADVISOR Virtual Visit [address] [address] Denise Woodson Ra, CAFETERIA CASHIER DIRECTOR OF STRATEGIC INITIATIVES [address] [place], [place] [phone] 07/30/2024 8:30 AM EDUCATIONAL ADVISOR Virtual Visit [facility] [place] [address] [place] [address] [address] [place] [phone] Randy Maradiaga DO [address] [place] [address] 08/04/2024 12:00 PM EDUCATIONAL ADVISOR Virtual Visit [facility] [address] [place] [phone] Arthur Salas, [address] [address] 08/04/2024 3:30 PM EDUCATIONAL ADVISOR Virtual Visit [facility] [address] [place] [phone] Denise Woodson Ra, CAFETERIA CASHIER DIRECTOR OF STRATEGIC INITIATIVES [address] [place] [address] 08/07/2024 1:00 PM EDUCATIONAL ADVISOR Appointment [facility] [address] [place] [phone] Danna Cardenas PA-C 6405 [place] [address] 08/10/2024 12:30 PM EDUCATIONAL ADVISOR Virtual Visit [facility] Neuropsychology [place] [address] [place] [address] [address] [place] [phone] Robin Zepeda MD [address] [place] [address] [id number] [place] [address] 08/17/2024 12:30 PM EDUCATIONAL ADVISOR Office Visit [facility] Neuropsychology [address] [phone] Robin Zepeda MD [address] [place] [address] [id number] [place] [address] Tulio Ogden, PhD [address] [address] 09/04/2024 11:00 AM EDUCATIONAL ADVISOR Office Visit [facility] [address] [place] [address] Denise Woodson Ra, CAFETERIA CASHIER DIRECTOR OF STRATEGIC INITIATIVES [address] [place], [place] [phone] 09/18/2024 1:00 PM EDUCATIONAL ADVISOR Office Visit [facility] [address] [place] [address] Denise Woodson Ra, CAFETERIA CASHIER DIRECTOR OF STRATEGIC INITIATIVES [address] [place], [place] [phone] 09/29/2024 9:00 AM EDUCATIONAL ADVISOR Virtual Visit [facility] Neurology [address] [phone] Randy Maradiaga DO [address] [place] [address] 10/09/2024 1:20 PM EDUCATIONAL ADVISOR Office Visit [facility] [address] [facility] [address] [place] [phone] Danna Cardenas PA-C 6[address] [place], [place] [address] 10/30/2024 4:00 PM EDUCATIONAL ADVISOR Virtual Visit [facility] [place] [address] [place] [phone] Lisa Zambrano MD [address] [place] [address] 12/29/2024 12:45 PM CDT Office Visit [facility] [address] [place] [address] Ave [address] [phone] Fabi Coates MD [address] [place] [address] 12/29/2024 1:45 PM CDT Office Visit [facility] [address] [place], [place] [address]e [facility] [address] [phone] Fabi Coates MD [address] [place] [address] 6[address] 06/01/2025 11:15 AM CDT Appointment [facility] Imaging [address] [facility] 160 [place] [phone] Robin Zepeda MD [address] [place] [address] 06/04/2025 11:00 AM CDT Office Visit [facility] Neurosurgery [address] 3rd [place] [phone] Robin Zepeda MD [address] [place] [address] 4856[address] Usha Simon APRN [address] [address] documented as of this encounter Goals Goal [...] Mental Health weekly - PT, OT and REMOTE SENSING SPECIALIST, continuing through [facility] [place] [place]: - Continue following up with PCP: 09/04/2024 - Vascular Dr. Zambrano 05/01/24 - follow up recommended in 6 months: 11/11/24 TBD #[phone]. - call independently - MTM 05/25/2024, completed - Neurosurgery Dr. Zepeda, following up with DELIVERY REP: 06/04/2025 11:00 AM (Arrive by 10:45 AM) [...] clinic with 24/7 after hours services available. Hansard Reporter will remain available as needed. documented as of this encounter Visit Diagnoses Not on filedocumented in this encounter Additional Health Concerns Active Problems Noted Date Diagnosed Date Increased risk of re-admission 02/18/2024 Assessment Noted Time PHQ-9 Depression Total Score: 5 03/17/20 24 9:45 AM CDT documented as of this encounter Care Teams Director Of Rehabilitation And Wellness Relationship Specialty Start Date End Date Winston Villatoro OD [facility] [address] [facility] [address] [place] [address] PCP - Ophthalmology Ophthalmology 02/11/13 Denise Woodson Ra, APRN DIRECTOR OF STRATEGIC INITIATIVES [address] [place], [place] [phone] PCP - General Family Practice 09/21/20 Denise Woodson Ra, APRN DIRECTOR OF STRATEGIC INITIATIVES [address] [place] [address] Assigned PCP 07/17/20 Usha Simon APRN DIRECTOR OF STRATEGIC INITIATIVES [address] [facility]121[place], [place] [address] Nurse Practitioner Neurological Surgery 01/24/24 Dangelo Salinas MD [address] [facility] [address] [place], [place] [phone] Neurology 01/27/24 Anastasia Stearns, RN Lead Hansard Reporter 02/06/24 Germaine Lopez, W Community Health Worker Primary Care - CC 02/18/24 Lisa Zambrano MD [address] [facility] [address] [place], [place] [address] Assigned Heart and Vascular Provider 05/08/24 07/07/24 Raul Hoyos MD [address] [facility]121[place], [place] [address] Assigned Neuroscience Provider 05/08/24 07/07/24 Joya Lira RPH [address] [place] [address] Pharmacist Pharmacist 05/25/24 Joya Lira [facility] [address] [place] [address] Assigned MTM Pharmacist 06/08/24 Fabi Coates MD [address] [place] [address] 75 [place] [address] Genetics, Clinical 06/18/24 documented as of this encounter
--- OUTSIDE RECORDS SUMMARY | 2024-07-16 13:51 | XMS_ITS | Encounter Summary ---
Author Organization [facility] Address [address] [place] [address] Care Team Providers Care Vp & General Counsel Name Role Phone ShaunaTarikle Se OD Unavailable [phone] Denise Woodson Ra, APRN PARKING LOT ATTENDANT Unavailable + [phone] Denise Woodson Ra, APRN PARKING LOT ATTENDANT Primary Care Provid er Usha Simon APRN PARKING LOT ATTENDANT Unavailable Dangelo Salinas MD Unavailable Anastasia Stearns RN Unavailable Germaine Lopez CHW Unavailable Lisa Zambrano MD Unavailable Raul Hoyos MD Unavailable [phone] Joya Lira [facility] Unavailable [phone] Joya Lira [facility] Unavailable [phone] Fabi Coates MD Unavailable [phone] Robin Zepeda MD Unavailable [phone] Danna Cardenas PA-C Unavailable [phone] Felicita Desai RN Unavailable Unavailab le Encounter Details Date Type Department Care Team (Late st Contact Info) Description 07/07/2024 [facility] [address] [place] [address] Liliane Cobos Social History Tobacco [...] How often do you attend sabianism or scientologist serv ices? 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 Not on file Not on file Not on file Not on file Not on file documented as of this encounter Plan of Treatment Upcoming Encounters Date Type Department Care Team (Late st Contact Info) Description 07/20/2024 12:00 PM PATTERN SHOP SUPERVISOR Virtual Visit [facility] [address] [place] [address] Denise Woodson Ra, MANAGER [employer]ACLE RETAIL [facility] [address] [place] [address] 07/30/2024 8:30 AM PATTERN SHOP SUPERVISOR Virtual Visit [facility] [address] [phone] Randy Maradiaga DO [address] [place] [address] 08/04/2024 12:00 PM PATTERN SHOP SUPERVISOR Virtual Visit [facility] [address] [place] [address] Arthur Salas, [address] [address] 08/04/2024 3:30 PM PATTERN SHOP SUPERVISOR Virtual Visit [facility] [address] [place] [phone] Denise Woodson Ra, MANAGER [employer] [facility] [address] [place] [address] 08/07/2024 1:00 PM PATTERN SHOP SUPERVISOR Appointment [facility] [address] [facility] [address] [place] [phone] Danna Cardenas, PA-C 6405 [place], [place] 17[address]05 08/10/2024 12:30 PM PATTERN SHOP SUPERVISOR Virtual Visit [facility] Neuro[facility] [place] [address] [phone] Robin Zepeda MD [address] [place] [address] CL5609ET [place] [address] 08/17/2024 12:30 PM PATTERN SHOP SUPERVISOR Office Visit [facility] Neuropsychology [address] [phone] Robin Zepeda MD 909 [facility] [id number] [place] [address] Tulio Ogden, PhD [address] [address] 09/04/2024 11:00 AM PATTERN SHOP SUPERVISOR Office Visit [facility] [address] [place] [phone] Denise Woodson Ra, MANAGER [employer]LE [employer]AIL PARKING LOT ATTENDANT [address] [place], [place] [phone] 09/18/2024 1:00 PM PATTERN SHOP SUPERVISOR Office Visit [facility] [address] [place] [phone] Denise Woodson Ra, MANAGER [employer]LE RETAIL PARKING LOT ATTENDANT [address] [place], [place] [phone] 09/29/2024 9:00 AM PATTERN SHOP SUPERVISOR Virtual Visit [facility] [address] 3rd [place] [phone] Randy Maradiaga DO [address] [place] [address] 10/09/2024 1:20 PM PATTERN SHOP SUPERVISOR Office Visit [facility] [place] 978[address] [facility] [address] [place] [phone] Danna Cardenas PA-C [address] [place] [address] 10/30/2024 4:00 PM PATTERN SHOP SUPERVISOR Virtual Visit [facility] 6405 [facility] Berta SVicenta [place] [facility] [place] [phone] Lisa Zambrano MD [address] [place], [place] [address] 12/29/2024 12:45 PM CDT Office Visit [facility] [address] [place] [phone] Fabi Coates MD [address] [address] 12/29/2024 1:45 PM CDT Office Visit [facility] Pediatric Specialty [address] [phone] Fabi Coates MD [address] [place] [address] 06/01/2025 11:15 AM CDT Appointment [facility] Imaging [address] [facility] [address] [place] [address] Robin Zepeda MD [address] [place] [address] 06/04/2025 11:00 AM CDT Office Visit [facility] Neuro[facility] [address] 3rd [place] [phone] Robin Zepeda MD [address] [place] [address] Usha Simon APRN [address] [address] documented as of this encounter Goals Goal [...] Health weekly - PT, OT and ASSEMBLY ADJUSTER, continuing through [facility] [place]: - Continue following up with PCP: 09/04/2024 - Vascular Dr. Zambrano 05/01/24 - follow up recommended in 6 months: 11/11/24 TBD #[phone]. - call independently - MTM 05/25/2024, completed - Neurosurgery Dr. Zepeda, following up with SPINDLE SANDER: 06/04/2025 11:00 AM (Arrive by 10:45 AM) Usha Simon, MANAGER ORACLE RETAIL PARKING LOT ATTENDANT 2. I will take my medications as prescribed. 3. I will discuss, review, schedule and complete recommended overdue health maintenance with my Primary Care Provider. 4. I will contact my care team with questions, concerns, support needs. I will use the clinic as a resource and I understand I can contact my clinic with 24/7 after hours services available. Safety Investigator/Cause Analyst will remain available as needed. documented as of this encounter Visit Diagnoses Not on filedocumented in this encounter Additional Health Concerns Active Problems Noted Date Diagnosed Date Increased risk of re-admission 02/18/2024 Assessment Noted Time PHQ-9 Depression Total Score: 5 03/17/20 24 9:45 AM CDT documented as of this encounter Care Teams Vp & General Counsel Relationship Specialty Start Date End Date Winston Villatoro OD [facility] [address] [facility] [address] [place] [address] PCP - Ophthalmology Ophthalmology 02/11/13 Denise Woodson Ra, MANAGER ORACLE RETAIL PARKING LOT ATTENDANT [address] [place] [address] PCP - General Family Practice 09/21/20 Denise Woodson Ra, APRN PARKING LOT ATTENDANT [address] [place] [address] Assigned PCP 07/17/20 Usha Simon APRN PARKING LOT ATTENDANT [address] [address] Nurse Practitioner Neurological Surgery 01/24/24 Dangelo Salinas MD [address] [place] [address] Neurology 01/27/24 Anastasia Stearns, RN Lead Safety Investigator/Cause Analyst 02/06/24 Germaine Lopez, W Community Health Worker Primary Care - CC 02/18/24 Lisa Zambrano MD 6[address] [facility] [address] [place] [address] Assigned Heart and Vascular Provider 05/08/24 07/07/24 Raul Hoyos MD [address] [address] Assigned Neuroscience Provider 05/08/24 07/07/24 Joya Lira RPH [address] [place] [address] Pharmacist Pharmacist 05/25/24 Joya Lira RPH [address] [place] [address] Assigned MTM Pharmacist 06/08/24 Fabi Coates MD 420 [facility] 75 [place] [address] Genetics, Clinical 06/18/24 Robin Zepeda MD 909 [facility] [address] Assigned Neuroscience Provider 07/08/24 Danna Cardenas PA-C 6405 [place] [address] Assigned Heart and Vascular Provider 07/08/24 Felicita Desai, RN Lead Safety Investigator/Cause Analyst 07/14/24 documented as of this encounter
--- OUTSIDE RECORDS SUMMARY | 2024-07-16 13:52 | XMS_ITS | Encounter Summary ---
Author Organization [facility] Address [address] [place] [address] Care Team Providers Care Bog Cutter Name Role Phone Shauna Winston M OD Unavailable [phone] Denise Woodson Ra, APRN SIDE TRIMMER Unavailable + [phone] Denise Woodson Ra, APRN SIDE TRIMMER Primary Care Provid er Usha Simon APRN SIDE TRIMMER Unavailable [phone] Dangelo Salinas MD Unavailable Anastasia Stearns RN Unavailable [phone] Germaine Lopez CHW Unavailable Lisa Zambrano MD Unavailable [phone] Raul Hoyos MD Unavailable Joya Lira [facility] Unavailable [phone] Joya Lira [facility] Unavailable [phone] Reason for Visit * Reason Comments Follow Up From 04/13/24 for noam chang Encounter Details Date Type Department Care Team (Late st Contact Info) Description 06/08/2024 8:30 AM CDT Office Visit [facility] [address] [place] [address] Denise Woodson Ra, APRN SIDE TRIMMER [address] [place] [address] Chronic obstructive pulmonary disease without exacerbation (H) (Primary Dx); History of seizure; Moderate persistent asthma without complication; Dural arteriovenous fistula; Cerebrovascular accident (CVA), unspecified mechanism (H) Social [...] How often do you attend amish or sabianist serv ices? Never 02/28/2024 Do you belong [...] Date Recorded PHQ-2 Score 2 05/05/2024 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 Not on file Not on file Not on file Not on file Not on file Not on file Not on file documented as of this encounter Last Filed Vital Signs Vital Sign Reading Time Taken Comments Blood Pressure 120/84 06/08/2024 8:14 AM CDT Pulse 68 06/08/2024 8:14 AM CDT Temperature 36.4 ??C (97.5 ??F) 06/08/2024 8:14 AM CD T Respiratory Rate 18 06/08/2024 8:14 AM CDT Oxygen Saturation 98% 06/08/2024 8:14 AM CDT Inhaled Oxygen Concentration - - Weight 98 kg (216 lb 1.6 oz) 06/08/2024 8:14 AM CDT Height 174 cm (5' 8.5) 06/08/2024 8:14 AM CDT Body Mass Index 32.38 06/08/2024 8:14 AM CDT documented in this encounter Progress Notes * Denise Woodson Ra, ASSISTANT STORE DIRECTOR SIDE TRIMMER - 06/08/2024 8:30 AM CDT Assessment & Plan Chronic obstructive pulmonary disease without exacerbation (H) Uses breo. Previous care through [facility]. Refilled. History of seizure Uses prn. Refilled. - LORazepam (ATIVAN) 1 MG tablet; Take 1/2-1 tablet daily as needed for onset of dizziness. Moderate persistent asthma without complication See above. - fluticasone-vilanterol (BREO ELLIPTA) 200-25 MCG/ACT inhaler; Inhale 1 puff into the lungs daily. Dural arteriovenous fistula Following with neurology. Cerebrovascular accident (CVA), unspecified mechanism (H) Following with neurology. Paperwork completed to remain out of work until neuropsych testing can be completed and reviewed. Continue with PT and OT. BMI Estimated body mass index is 32.38 kg/m?? as calculated from the following: Height as of this encounter: 1.74 m (5' 8.5). Weight as of this encounter: 98 kg (216 lb 1.6 oz). Juan M Rondon is a 48 year old, presenting for the following health issues: Follow Up (From 04/13/24 for headaches) 06/08/2024 8:08 AM Additional Questions Roomed by Paula APPIAH History of Present Illness Headaches: Since the patient's last clinic visit, headaches are: no change The patient is getting headaches: Daily She is not able to do normal daily activities when she has a migraine. The patient is taking the following rescue/relief medications: Tylenol and other Patient states I get some relief from the rescue/relief medications. The patient is taking the following medications to prevent migraines: No medications to prevent migraines In the past 4 weeks, the patient has gone to an Urgent Care or Emergency Room 2 times times due to headaches. Reason for visit: Stroke symptoms followup, headaches, blurry vision She eats 2-3 servings of fruits and vegetables daily.She consumes 0 sweetened beverage(s) daily.Sheexercises with enough effort to increase her heart rate 10 to 19 minutes per day. She exercises with enough effort to increase her heart rate 5 days per week. She is taking medications regularly. Pt presents for follow up. Recent visit with neurology. She has neuropsych testing scheduled for August. She has a general neurology appt scheduled as well. She has been continuing with PT and OT twice weekly. She is working on limiting activities and pacing herself to avoid exacerbations in symptoms. She has not worked for the past 3.5 weeks. Feels that when she initially returned to work she was tolerating the tasks better as they were limited in intensity and were more basic. When they increased in processing requirements she began to have worsening symptoms. Symptoms include intermittent dizziness, chest pain, temperature dysregulation, fatigue, headaches,nausea. Review of Systems Constitutional, HEENT, cardiovascular, pulmonary, gi and gu systems are negative, except as otherwise noted. Objective BP 120/84 (BP Location: Right arm, Patient Position: Sitting, Cuff Size: Adult Large) Pulse 68 Temp 97.5 ??F (36.4 ??C) (Oral) Resp 18 Ht 1.74 m (5' 8.5) Wt 98 kg (216 lb 1.6 oz) LMP 01/07/2006 SpO2 98% BMI 32.38 kg/m?? Body mass index is 32.38 kg/m??. Physical Exam GENERAL: alert and no distress EYES: Eyes grossly normal to inspection RESP: no increased work of breathing, speaking in full sentences. SKIN: no suspicious lesions or rashes PSYCH: mentation appears normal, judgement and insight intact, and appearance well groomed Signed Electronically by: Denise Woodson APRN CNP * Qing Copeland - 06/08/2024 8:30 AM CDT Faxed Return to Work and Disability Paperwork. Qing Cardona Lead Recovery Operator [facility] documented in this encounter Plan of Treatment Upcoming Encounters Date Type Department Care Team (Late st Contact Info) Description 07/20/2024 12:00 PM HYDROGEN PLANT OPERATOR Virtual Visit [facility] [address] [place] [phone] Denise Woodson Ra, ASSISTANT STORE DIRECTOR SIDE TRIMMER [address] [place] [address] 07/30/2024 8:30 AM HYDROGEN PLANT OPERATOR Virtual Visit [facility] Neurology [address] 3rd [place] [phone] Randy Maradiaga, [address] [address] 08/04/2024 12:00 PM HYDROGEN PLANT OPERATOR Virtual Visit [facility] Mental Health and Addiction Clinic [address] [place] [address] [address] 08/04/2024 3:30 PM HYDROGEN PLANT OPERATOR Virtual Visit [facility] [address] [place] [phone] Denise Woodson Ra, ASSISTANT STORE DIRECTOR SIDE TRIMMER [address] [place] [address] 08/07/2024 1:00 PM HYDROGEN PLANT OPERATOR Appointment [facility] Heart Care [address] [facility] [address] [place] [phone] Danna Cardenas PA-C [address] [place] [address] 08/10/2024 12:30 PM HYDROGEN PLANT OPERATOR Virtual Visit [facility] Neuropsychology [address] [phone] Robin Zepeda MD [address] [place] [address] 08/17/2024 12:30 PM HYDROGEN PLANT OPERATOR Office Visit [facility] Neuropsychology [address] [phone] Robin Zepeda MD [address] [place] [address] Tulio Ogden, PhD [address] [address] 09/04/2024 11:00 AM HYDROGEN PLANT OPERATOR Office Visit [address] [phone] Denise Woodson Ra, ASSISTANT STORE DIRECTOR SIDE TRIMMER [address] [place] [address] 09/18/2024 1:00 PM HYDROGEN PLANT OPERATOR Office Visit [address] [phone] Denise Woodson Ra, ASSISTANT STORE DIRECTOR SIDE TRIMMER [address] [place] [address] 09/29/2024 9:00 AM HYDROGEN PLANT OPERATOR Virtual Visit [facility] Neurology Clinic [address] [phone] Randy Maradiaga DO [address] [place] [address] 10/09/2024 1:20 PM HYDROGEN PLANT OPERATOR Office Visit [facility] Heart [facility] [address] [facility] [address] [place] [phone] Danna Cardenas PA-C [address] [facility] [place] [address] 10/30/2024 4:00 PM HYDROGEN PLANT OPERATOR Virtual Visit [facility] Vascular Clinic [place] [address] [place] [phone] Lisa Zambrano MD [address] [place] [id number] 12/29/2024 12:45 PM CDT Office Visit [facility] [address] [place] [address] [phone] Fabi Coates MD [address] [place] [address] 12/29/2024 1:45 PM CDT Office Visit [facility] Pediatric Specialty Clinic [address] [place] [phone] Fabi Coates MD [address] [place] [address] 06/01/2025 11:15 AM CDT Appointment [facility] Specialty Care Center Imaging [address] [facility] [address] [place] [phone] Robin Zepeda MD [address] [place], [place] [address] [address] 06/04/2025 11:00 AM CDT Office Visit [facility] Neurosurgery [address] 3rd [place] [phone] Robin Zepeda MD [address] [address] Usha Simon APRN SIDE TRIMMER [address] [address] documented as of this encounter Goals Goal [...] Mental Health weekly - PT, OT and ENZYME CHEMIST, continuing through [facility] [place]: - Continue following up with PCP: 09/04/2024 - Vascular Dr. Zambrano 05/01/24 - follow up recommended in 6 months: 11/11/24 TBD #[phone]. - call independently - MTM 05/25/2024, completed - Neurosurgery Dr. Zepeda, following up with DESIGN ENGINEER: 06/04/2025 11:00 AM (Arrive by 10:45 AM) Usha Simon APRN SIDE TRIMMER 2. I will take my medications as prescribed. 3. I will discuss, review, schedule and complete recommended overdue health maintenance with my Primary Care Provider. 4. I will contact my care team with questions, concerns, support needs. I will use the clinic as a resource and I understand I can contact my clinic with 24/7 after hours services available. Special Effects Technician will remain available as needed. documented as of this encounter Visit Diagnoses Diagnosis Chronic obstructive pulmonary disease without exacerbation (H)- Primary History of seizure Moderate persistent asthma without complication Unspecified asthma Dural arteriovenous fistula Cerebral aneurysm, nonruptured Cerebrovascular accident (CVA), unspecified mechanism (H) documented in this encounter Additional Health Concerns Active Problems Noted Date Diagnosed Date Increased risk of re-admission 02/18/2024 Assessment Noted Time PHQ-9 Depression Total Score: 5 03/17/20 24 9:45 AM CDT documented as of this encounter Care Teams Bog Cutter Relationship Specialty Start Date End Date Winston Villatoro OD [facility] [place] [address] [place] [address] PCP - Ophthalmology Ophthalmology 02/11/13 Denise Woodson Ra, APRN SIDE TRIMMER [address] [place] [address] PCP - General Family Practice 09/21/20 Denise Woodson Ra, APRN SIDE TRIMMER [address] [facility] [place] [address] Assigned PCP 07/17/20 Usha Simon APRN SIDE TRIMMER [address] [facility], [place] [address]2425 Nurse Practitioner Neurological Surgery 01/24/24 Dangelo Salinas MD [address] [place], [place] [phone] Neurology 01/27/24 Anastasia Stearns, RN Lead Special Effects Technician 02/06/24 Germaine Lopez, W Community Health Worker Primary Care - CC 02/18/24 Lisa Zambrano MD [address] [place] [address] Assigned Heart and Vascular Provider 05/08/24 07/07/24 Raul Hoyos MD [address] [facility], [place] [address] Assigned Neuroscience Provider 05/08/24 07/07/24 Joya Lira RPH [address] [place], [place] [phone] Pharmacist Pharmacist 05/25/24 Joya Lira RPH [address] [place], [place] [phone] Assigned MTM Pharmacist 06/08/24 documented as of this encounter
--- OUTSIDE RECORDS SUMMARY | 2024-07-16 13:52 | XMS_ITS | Encounter Summary ---
Author Organization [facility] Address [address] [place] [address] Care Team Providers Care Medical Bill Processor Name Role Phone Winston Villatoro OD Unavailable [phone] Denise Woodson Ra, APRN SLIME PLANT OPERATOR HELPER Unavailable + [phone] Denise Woodson Ra, APRN SLIME PLANT OPERATOR HELPER Primary Care Provid er Usha Simon APRN SLIME PLANT OPERATOR HELPER Unavailable Dangelo Salinas MD Unavailable Anastasia Stearns RN Unavailable [phone] Germaine Lopez CHW Unavailable Lisa Zambrano MD Unavailable [phone] Raul Hoyos MD Unavailable Joya Lira [facility] Unavailable [phone] Joya Lira [facility] Unavailable [phone] Fabi Coates MD Unavailable [phone] Encounter Details Date Type Department Care Team (Latest Contact Info) Description 06/23/2024 Travel Social History Tobacco Use Types Packs/Day [...] on file 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 Sex 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 MILL 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 Gender Identity Not on file Sexual Orientation Not on file 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 Not on file Not on file Not on file Not on file Not on file Not on file documented as of this encounter Plan of Treatment Upcoming Encounters Date Type Department Care Team (Late st Contact Info) Description 07/20/2024 12:00 PM MILL TENDER Virtual Visit [facility] [address] [place] [address] Denise Woodson Ra, HEAVY TRUCK DRIVER SLIME PLANT OPERATOR HELPER [address] [place], [place] [phone] 07/30/2024 8:30 AM MILL TENDER Virtual Visit [facility] Neurology Clinic [address] [place] [address] Randy Maradiaga, [address] [address] 08/04/2024 12:00 PM MILL TENDER Virtual Visit [facility] Mental Health and Addiction Clinic [place] [address] [place] [address] ChristophsamanthaArthur villafana, [facility] [address] [place] [address] 08/04/2024 3:30 PM MILL TENDER [facility] [address] [place] [phone] Denise Woodson Ra, HEAVY TRUCK DRIVER SLIME PLANT OPERATOR HELPER [address] [place], [place] [phone] 08/07/2024 1:00 PM MILL TENDER Appointment [facility] Heart Care [address] [facility] [address] [place] [phone] Danna Cardenas PA-C 6405 [place], [place] 12[address] 08/10/2024 12:30 PM MILL TENDER Virtual Visit [facility] Neuropsychology [address] [phone] Robin Zepeda MD [address] [place] [address] 08/17/2024 12:30 PM MILL TENDER Office Visit [facility] Neuropsychology [address] [phone] Robin Zepeda MD [address] [place] [address] Tulio Ogden, PhD [address] [address] 09/04/2024 11:00 AM MILL TENDER Office Visit [facility] [address] [place] [phone] Denise Woodson Ra, HEAVY TRUCK DRIVER SLIME PLANT OPERATOR HELPER [address] [place], [place] [phone] 09/18/2024 1:00 PM MILL TENDER Office Visit [facility] [address] [place] [phone] Denise Woodson Ra, HEAVY TRUCK DRIVER SLIME PLANT OPERATOR HELPER [address] [place], [place] [phone] 09/29/2024 9:00 AM MILL TENDER Virtual Visit [facility] Neurology [address] [phone] Randy Maradiaga, [address] [address] 10/09/2024 1:20 PM MILL TENDER Office Visit [facility] Heart [place] [address] [place] [address] [place] [phone] Danna Cardenas PA-C 6405 [place] [address] 10/30/2024 4:00 PM MILL TENDER Virtual Visit [facility] Vascular [facility] [address] [place] [phone] Lisa Zambrano MD [address] [place] [address] 12/29/2024 12:45 PM CDT Office Visit [facility]ty [id number] Explorer [address] [phone] Fabi Coates MD [address] [address] 12/29/2024 1:45 PM CDT Office Visit [facility] [address] [facility] [address] [phone] Fabi Coates MD [address] [address] 06/01/2025 11:15 AM CDT Appointment [facility] Care Center Imaging [address] [place] [phone] Robin Zepeda MD [address] [place] [address] 06/04/2025 11:00 AM CDT Office Visit [facility] Neurosurgery [address] [place] [phone] Robin Zepeda MD [address] [place] [address] Usha Simon APRN [address] [address] documented as of this encounter Goals Goal [...] Mental Health weekly - PT, OT and SLEEPING BAG FILLER, continuing through [facility]: - Continue following up with PCP: 09/04/2024 - Vascular Dr. Zambrano 05/01/24 - follow up recommended in 6 months: 11/11/24 D #[phone]. - call independently - MTM 05/25/2024, completed - Neurosurgery Dr. Zepeda, following up with STOCK BROKER SUPERVISOR: 06/04/2025 11:00 AM (Arrive by 10:45 AM) [...] clinic with 24/ after hours services available. Rotary Pump Operator will remain available as needed. documented as of this encounter Visit Diagnoses Not on filedocumented in this encounter Additional Health Concerns Active Problems Noted Date Diagnosed Date Increased risk of re-admission 02/18/2024 Assessment Noted Time PHQ-9 Depression Total Score: 5 03/17/20 24 9:45 AM CDT documented as of this encounter Care Teams Medical Bill Processor Relationship Specialty Start Date End Date Winston Villatoro, AMELIE [facility] [address] [facility] [address] [place] [address] PCP - Ophthalmology Ophthalmology 02/11/13 Denise Woodson Ra, APRN SLIME PLANT OPERATOR HELPER [address] [place] [address] PCP - General Family Practice 09/21/20 Denise Woodson Ra, APRN SLIME PLANT OPERATOR HELPER [address] [place] [address] Assigned PCP 07/17/20 Usha Simon APRN SLIME PLANT OPERATOR HELPER [address] [phone] Nurse Practitioner Neurological Surgery 01/24/24 Dangelo Salinas MD [address] [place], [place] [phone] Neurology 01/27/24 Anastasia Stearns, RN Lead Rotary Pump Operator 02/06/24 Germaine Lopez, W Community Health Worker Primary Care - CC 02/18/24 Lisa Zambrano MD [address] [facility] [address] [place], [place] 4209[address] Assigned Heart and Vascular Provider 05/08/24 07/07/24 Raul Hoyos MD [address] [place] [address] Assigned Neuroscience Provider 05/08/24 07/07/24 Joya Lira RPH [address] [place] [address] Pharmacist Pharmacist 05/25/24 Joya Lira RPH [address] [place] [address] Assigned MTM Pharmacist 06/08/24 Fabi Coates MD [facility] [address] [place] [address] Genetics, Clinical 06/18/24 documented as of this encounter
--- OUTSIDE RECORDS SUMMARY | 2024-07-16 13:52 | XMS_ITS | Encounter Summary ---
Author Organization [facility] Address [address] [place] [address] Care Team Providers Care Floor Person Name Role Phone Winston Villatoro OD Unavailable [phone] Denise Woodson Ra, APRN SETTER MACHINE Unavailable + [phone] Denise Woodson Ra, APRN SETTER MACHINE Primary Care Provid er Usha Simon APRN SETTER MACHINE Unavailable Dangelo Salinas MD Unavailable Anastasia Stearns RN Unavailable [phone] Germaine Lopez CHW Unavailable Lisa Zambrano MD Unavailable Raul Hoyos MD Unavailable Joya Lira [facility] Unavailable [phone] Joya Lira [facility] Unavailable [phone] Encounter Details Date Type Department Care Team (Late st Contact Info) Description 06/16/[address] [facility] Neurosurgery Clinic [address] 3rd [place] [address] Bryan Farley CMA Social History [...] How often do you attend adventist or congregational serv ices? 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 Bryan neurosurgery documented in this encounter Plan of Treatment Upcoming Encounters Date Type Department Care Team (Late st Contact Info) Description 07/20/2024 12:00 PM MACHINE HOOP MAKER HELPER Virtual Visit [facility] [address] [place] [address] Denise Woodson Ra, RESERVATIONS CLERK SETTER MACHINE [address] [place] [address] 07/30/2024 8:30 AM MACHINE HOOP MAKER HELPER Virtual Visit [facility] Neurology Clinic [address] [place] [phone] Randy Maradiaga DO [address] [place] [address] 08/04/2024 12:00 PM MACHINE HOOP MAKER HELPER Virtual Visit [facility] Mental Health and Addiction Clinic [address] [place] [address] Arthur [address] [place] [address] 08/04/2024 3:30 PM MACHINE HOOP MAKER HELPER [facility] [address] [place] [address] Denise Woodson Ra, RESERVATIONS CLERK SETTER MACHINE [address] [place] [address] 08/07/2024 1:00 PM MACHINE HOOP MAKER HELPER Appointment [facility] Heart Care 6405 [facility] [address] [place] [phone] Danna Cardenas, PA-C 6405 [place] [address] 08/10/2024 12:30 PM MACHINE HOOP MAKER HELPER Virtual Visit [facility] Neuropsychology [address]rd [place] [phone] Robin Zepeda MD [address] [place] [address] [id number] [place] [address] 08/17/2024 12:30 PM MACHINE HOOP MAKER HELPER Office Visit [facility] Neuropsychology [address] [phone] Robin Zepeda MD [address] [place] [address] [id number] [place], [place] 978805 Tulio Ogden, PhD [address] 5726[address] 09/04/2024 11:00 AM MACHINE HOOP MAKER HELPER Office Visit [facility] [address] [place] [address] Denise Woodson Ra, RESERVATIONS CLERK SETTER MACHINE [address] [place], [place] [phone] 09/18/2024 1:00 PM MACHINE HOOP MAKER HELPER Office Visit [facility] [address] [place] [phone] Denise Woodson Ra, RESERVATIONS CLERK SETTER MACHINE [address] [place], [place] [phone] 09/29/2024 9:00 AM MACHINE HOOP MAKER HELPER Virtual Visit [facility] Neurology [address] [phone] Randy Maradiaga, [address] [place] [address] 10/09/2024 1:20 PM MACHINE HOOP MAKER HELPER Office Visit [facility] Heart [facility] [address] [phone] Danna Cardenas PA-C 6405 [place], [place] [address] 10/30/2024 4:00 PM MACHINE HOOP MAKER HELPER Virtual Visit [facility] Vascular Clinic [place] [address] [place] [phone] Lisa Zambrano MD [address] [place] [address] 12/29/2024 12:45 PM CDT Office Visit [facility] [address] [place] [address] Ave [address] [phone] Fabi Coates MD [address] [place] [address] 127595 12/29/2024 1:45 PM CDT Office Visit [facility] [address] [place] [address] Ave [address] [phone] Fabi Coates MD [address] [place] [address] 06/01/2025 11:15 AM CDT Appointment [facility] Imaging [address] [facility] [address] [place] [phone] Robin Zepeda MD [address] [place] [address] 774[address] 06/04/2025 11:00 AM CDT Office Visit [facility] Neurosurgery [address] 3rd [place] [phone] Robin Zepeda MD [address] [place] [address] 766495 Usha Simon APRN [address] [address] documented as of this encounter Goals Goal [...] Health weekly - PT, OT and PERSONAL CARE WORKER, continuing through [facility] [place]: - Continue following up with PCP: 09/04/2024 - Vascular Dr. Zambrano 05/01/24 - follow up recommended in 6 months: 11/11/24 TBD #[phone]. - call independently - MTM 05/25/2024, completed - Neurosurgery Dr. Zepeda, following up with CIVIL DRAFTING TECHNICIAN: 06/04/2025 11:00 AM (Arrive by 10:45 AM) [...] clinic with 24/ after hours services available. Character Actress will remain available as needed. documented as of this encounter Visit Diagnoses Not on filedocumented in this encounter Additional Health Concerns Active Problems Noted Date Diagnosed Date Increased risk of re-admission 02/18/2024 Assessment Noted Time PHQ-9 Depression Total Score: 5 03/17/20 24 9:45 AM CDT documented as of this encounter Care Teams Floor Person Relationship Specialty Start Date End Date Winston Villatoro OD [facility] 701 [facility] [address] [place] [address] PCP - Ophthalmology Ophthalmology 02/11/13 Denise Woodson Ra, APRN SETTER MACHINE [address] [place], [place] [phone] PCP - General Family Practice 09/21/20 Denise Woodson Ra RESERVATIONS CLERK SETTER MACHINE [address] [place], [place] 5723768 Assigned PCP 07/17/20 Usha Simon APRN SETTER MACHINE 909 [facility]2121[place], [place] [address] Nurse Practitioner Neurological Surgery 01/24/24 Dangelo Salinas MD [address] [facility] [address] [place] [address] Neurology 01/27/24 Anastasia Stearns, RN Lead Character Actress 02/06/24 Germaine Lopez, W Community Health Worker Primary Care - CC 02/18/24 Lisa Zambrano MD 6405 [facility] [address] [place], [place] [address] Assigned Heart and Vascular Provider 05/08/24 07/07/24 Raul Hoyos MD 909 [facility]2121[place], [place] [address] Assigned Neuroscience Provider 05/08/24 07/07/24 Joya Lira RPH [address] [address] Pharmacist Pharmacist 05/25/24 Joya Lira RPH [address] [place] [address] Assigned MTM Pharmacist 06/08/24 documented as of this encounter
--- OUTSIDE RECORDS SUMMARY | 2024-07-16 13:52 | XMS_ITS | Encounter Summary ---
Author Organization [facility] Address [address] [place] [address] Care Team Providers Care Roofing Sales Representative Name Role Phone Winston Villatoro Se OD Unavailable Denise Woodson Ra, APRN EMERGENCY MAN Unavailable Denise Woodson Ra, APRN EMERGENCY MAN Primary Care Provid er Usha Simon APRN EMERGENCY MAN Unavailable [phone] Dangelo Salinas MD Unavailable Anastasia Stearns RN Unavailable Germaine Lopez CHW Unavailable Lisa Zambrano MD Unavailable [phone] Raul Hoyos MD Unavailable Joya Lira [facility] Unavailable [phone] Joya Lira [facility] Unavailable [phone] Encounter Details Date Type Department Care Team (Late st Contact Info) Description 06/08/2024 Orders Only Se [facility] [address], [address] [place] [address] Rohit Barcenas MD [address] [place] [place] [address] 295 [place], [place] 758465 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 Not on file Not on file Not on file Not on file Not on file Not on file documented as of this encounter Plan of Treatment Upcoming Encounters Date Type Department Care Team (Late st Contact Info) Description 07/20/2024 12:00 PM EMPLOYEE WELLNESS/FITNESS COORDINATOR Virtual Visit [facility] [address] [place] [address] Denise Woodson Ra, GENERAL SALES MANAGER EMERGENCY MAN [address] [place] [address] 07/30/2024 8:30 AM EMPLOYEE WELLNESS/FITNESS COORDINATOR Virtual Visit [facility] Neurology Clinic [address] [phone] Randy Maradiaga DO [address] [place] [address] 08/04/2024 12:00 PM EMPLOYEE WELLNESS/FITNESS COORDINATOR Virtual Visit [facility] Mental Health and Addiction Clinic [address] [place] [address] Arthur Salas, [facility] [address] [place] [address] 08/04/2024 3:30 PM EMPLOYEE WELLNESS/FITNESS COORDINATOR Virtual Visit [facility] [address] [place] [address] Denise Woodson Ra, GENERAL SALES MANAGER [facility] [address] [place] [address] 08/07/2024 1:00 PM EMPLOYEE WELLNESS/FITNESS COORDINATOR Appointment [facility] Heart Care 6405 [facility] [address] [place] [phone] Danna Cardenas PA-C 6405 [place], [place] 564925 08/10/2024 12:30 PM EMPLOYEE WELLNESS/FITNESS COORDINATOR Virtual Visit [facility] Clinic Neuropsychology [address] [phone] Robin Zepeda MD [address] [place], [place] [address] [address] 08/17/2024 12:30 PM EMPLOYEE WELLNESS/FITNESS COORDINATOR Office Visit [facility] Neuropsychology [address] [phone] Robin Zepeda MD [address] [place], [place] [address] [address] Tulio Ogden, PhD [address] [address] 09/04/2024 11:00 AM EMPLOYEE WELLNESS/FITNESS COORDINATOR Office Visit [facility] [address] [place] [phone] Denise Woodson Ra, GENERAL SALES MANAGER EMERGENCY MAN [address] [place], [place] 2559768 09/18/2024 1:00 PM EMPLOYEE WELLNESS/FITNESS COORDINATOR Office Visit [facility] [address] [place] [phone] Denise Woodson Ra, GENERAL SALES MANAGER EMERGENCY MAN [address] [place], [place] 6263868 09/29/2024 9:00 AM EMPLOYEE WELLNESS/FITNESS COORDINATOR Virtual Visit [facility] Neurology [address] 3rd [place] [phone] Randy Maardiaga DO [address] [place] [address] 10/09/2024 1:20 PM EMPLOYEE WELLNESS/FITNESS COORDINATOR Office Visit [facility] Heart [address] [place] [phone] Danna Cardenas PA-C 3641 [place], [place] 478325 10/30/2024 4:00 PM EMPLOYEE WELLNESS/FITNESS COORDINATOR Virtual Visit [facility] Vascular Clinic [place] [address] [place] [phone] Lisa Zambrano MD [address] [place] [address] 12/29/2024 12:45 PM CDT Office Visit [facility] Pediatric Specialty Clinic [address] [place] [address] [phone] Fabi Coates MD [address] 793985 12/29/2024 1:45 PM CDT Office Visit [facility] Pediatric Specialty [address] [phone] Fabi Coates MD [address] 2259[address] 06/01/2025 11:15 AM CDT Appointment [facility] Imaging [address] [facility] [address] [place] [phone] Robin Zepeda MD [address] [place] [address] 484585 06/04/2025 11:00 AM CDT Office Visit [facility] Neurosurgery [address] 3rd [place] [phone] Robin Zepeda MD [address] [place] [address] Usha Simon APRN [address] [address] documented as of this encounter Goals Goal [...] Mental Health weekly - PT, OT and BLUEPRINT READER, continuing through [facility] [place]: - Continue following up with PCP: 09/04/2024 - Vascular Dr. Zambrano 05/01/24 - follow up recommended in 6 months: 11/11/24 TBD #[phone]. - call independently - MTM 05/25/2024, completed - Neurosurgery Dr. Zepeda, following up with ACADEMIC RECORDS SPECIALIST: 06/04/2025 11:00 AM (Arrive by 10:45 AM) Usha Simon APRN EMERGENCY MAN 2. I will take my medications as prescribed. 3. I will discuss, review, schedule and complete recommended overdue health maintenance with my Primary Care Provider. 4. I will contact my care team with questions, concerns, support needs. I will use the clinic as a resource and I understand I can contact my clinic with 24/7 after hours services available. Magnetic Tape Winder will remain available as needed. 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 [place] 701 [facility] [address] [place] [address] PCP - Ophthalmology Ophthalmology 02/11/13 Denise Woodson Ra, GENERAL SALES MANAGER EMERGENCY MAN [address] [place] [address] PCP - General Family Practice 09/21/20 Denise Woodson Ra, APRN EMERGENCY MAN [address] [place] [address] Assigned PCP 07/17/20 Usha Simon APRN EMERGENCY MAN [address] 041225 Nurse Practitioner Neurological Surgery 01/24/24 Dangelo Salinas MD [address] [place] [address] Neurology 01/27/24 Anastasia Stearns, RN Lead Magnetic Tape Winder 02/06/24 Germaine Lopez, W Community Health Worker Primary Care - CC 02/18/24 Lisa Zambrano MD [address] [facility] [address] [place] [address] Assigned Heart and Vascular Provider 05/08/24 07/07/24 Raul Hoyos MD [address] 105[address] Assigned Neuroscience Provider 05/08/24 07/07/24 Joya Lira RPH [address] [place] [address] Pharmacist Pharmacist 05/25/24 Joya Lira RPH [address] [place] [address] Assigned MTM Pharmacist 06/08/24 documented as of this encounter
--- OUTSIDE RECORDS SUMMARY | 2024-07-16 13:52 | XMS_ITS | Encounter Summary ---
Author Organization [facility] Address [address] [place] [address] Care Team Providers Care Supervisor Sunglasses Name Role Phone Winston Villatoro OD Unavailable [phone] Denise Woodson Ra, APRN ENERGY CONSERVATION ENGINEER Unavailable + [phone] Denise Woodson Ra, APRN ENERGY CONSERVATION ENGINEER Primary Care Provid er Usha Simon APRN ENERGY CONSERVATION ENGINEER Unavailable + [phone] Dangelo Salinas MD Unavailable Anastasia Stearns RN Unavailable [phone] Germaine Lopez CHW Unavailable [phone] Lisa Zambrano MD Unavailable [phone] Raul Hoyos MD Unavailable Joya Lira [facility] Unavailable [phone] Joya Lira [facility] Unavailable [phone] Encounter Details Date Type Department Care Team (Latest Contact Info) Description 06/08/2024 Travel Social History Tobacco Use Types Packs/Day [...] How often do you attend zoroastrian or latter day serv ices? 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 Not on file Not on file Not on file Not on file Not on file Not on file documented as of this encounter Plan of Treatment Upcoming Encounters Date Type Department Care Team (Late st Contact Info) Description 07/20/2024 12:00 PM FORESTER SILVICULTURE Virtual Visit [facility] [address] [place] [address] Denise Woodson Ra, SHRIMP POND LABORER [facility] [address] [place], [place] [phone] 07/30/2024 8:30 AM FORESTER SILVICULTURE Virtual Visit [facility] Neurology Clinic [address] [place] [address] Randy Maradiaga, [address] [place] [address] 382085 08/04/2024 12:00 PM FORESTER SILVICULTURE Virtual Visit [facility] Mental Health and Addiction Clinic [place] [address] [place] [address] OlayinkaanselmoledyLorrieabilio, [facility] [address] [place] [address] 08/04/2024 3:30 PM FORESTER SILVICULTURE [facility] [address] [place] [phone] Denise Woodson Ra, SHRIMP POND LABORER ENERGY CONSERVATION ENGINEER [address] [place], [place] [phone] 08/07/2024 1:00 PM FORESTER SILVICULTURE Appointment [facility] Heart Care 6405 [facility] [address] [place] [phone] Danna Cardenas PANilesC 6405 [place] [address] 08/10/2024 12:30 PM FORESTER SILVICULTURE Virtual Visit [facility] Neuropsychology [address] [phone] Robin Zepeda MD [address] [place] [address] 08/17/2024 12:30 PM FORESTER SILVICULTURE Office Visit [facility] Neuropsychology [address] [phone] Robin Zepeda MD [address] [place] [address] 532035 Tulio Ogden, PhD [address] [address] 09/04/2024 11:00 AM FORESTER SILVICULTURE [facility] [address] [place] [phone] Denise Woodson Ra, SHRIMP POND LABORER ENERGY CONSERVATION ENGINEER [address] [facility]Abilio [facility] [place] 0536468 09/18/2024 1:00 PM FORESTER SILVICULTURE [facility] [address] [place] [phone] Denise Woodson Ra, SHRIMP POND LABORER ENERGY CONSERVATION ENGINEER [address] [facility]Abilio [place], [place] 5541068 09/29/2024 9:00 AM FORESTER SILVICULTURE Virtual Visit [facility] Neurology [address] [phone] Randy Maradiaga, [address] [address] 10/09/2024 1:20 PM FORESTER SILVICULTURE Office Visit [facility] Heart [address] [place] [phone] Danna Cardenas PA-C 6405 [place] [address] 10/30/2024 4:00 PM FORESTER SILVICULTURE Virtual Visit [facility] Vascular Clinic [place] [address] [place] [phone] Lisa Zambrano MD [address] [place] 393675 12/29/2024 12:45 PM CDT Office Visit [facility] [address] [facility] [address],[place] [phone] Fabi Coates MD 420 [facility] 75 [place] [address] 12/29/2024 1:45 PM CDT Office Visit [facility] 2450 [facility] Explorer [facility] [address],[place] [phone] Fabi Coates MD [address] [address] 06/01/2025 11:15 AM CDT Appointment [facility] Imaging [address] [place] [phone] Robin Zepeda MD [address] [place] [address] 7620[address] 06/04/2025 11:00 AM CDT Office Visit [facility] Neurosurgery Clinic [place] [address] [place] [address] 3rd [place] [phone] Robin Zepeda MD [address] [place] [address] Usha Simon APRN ENERGY CONSERVATION ENGINEER [address] [place] [address] 229085 documented as of this encounter Goals Goal [...] Mental Health weekly - PT, OT and CIVIL ENGINEER, continuing through [facility] [place]: - Continue following up with PCP: 09/04/2024 - Vascular Dr. Zambrano 05/01/24 - follow up recommended in 6 months: 11/11/24 TBD #[phone]. - call independently - MTM 05/25/2024, completed - Neurosurgery Dr. Zepeda, following up with POLICE COMMUNICATIONS OPERATOR: 06/04/2025 11:00 AM (Arrive by 10:45 [...] with 24/7 after hours services available. Director Energy will remain available as needed. documented as of this encounter Visit Diagnoses Not on filedocumented in this encounter Additional Health Concerns Active Problems Noted Date Diagnosed Date Increased risk of re-admission 02/18/2024 Assessment Noted Time PHQ-9 Depression Total Score: 5 03/17/20 24 9:45 AM CDT documented as of this encounter Care Teams Supervisor Sunglasses Relationship Specialty Start Date End Date Winston Villatoro, OD [facility] [address] [place] [address] PCP - Ophthalmology Ophthalmology 02/11/13 Denise Woodson Ra, APRN ENERGY CONSERVATION ENGINEER [address] [place] [address] PCP - General Family Practice 09/21/20 Denise Woodson Ra, APRN CNP [address] [address] [place] [address] Assigned PCP 07/17/20 Usha Simon APRN ENERGY CONSERVATION ENGINEER 909 [facility]2121[address] [place] [address] Nurse Practitioner Neurological Surgery 01/24/24 Dangelo Salinas MD [address] [place] [address] Neurology 01/27/24 Anastasia Stearns, RN Lead Director Energy 02/06/24 Germaine Lopez, W Community Health Worker Primary Care - CC 02/18/24 Lisa Zambrano MD [address] [facility] [place] [address] Assigned Heart and Vascular Provider 05/08/24 07/07/24 Raul Hoyos MD [address] [address] Assigned Neuroscience Provider 05/08/24 07/07/24 Joya Lira RPH [address] [place] [address] Pharmacist Pharmacist 05/25/24 Joya Lira RPH [address] [place] [address] Assigned MTM Pharmacist 06/08/24 documented as of this encounter
--- OUTSIDE RECORDS SUMMARY | 2024-07-16 13:52 | XMS_ITS | Encounter Summary ---
Author Organization [place] Address [address] [place] [address] Care Team Providers Care Level Glass Vial Filler Name Role Phone Shauna Winston Se OD Unavailable [phone] Denise Woodson Ra, APRN GENERAL SCRAP WORKER Unavailable + [phone] Denise Woodson Ra, APRN GENERAL SCRAP WORKER Primary Care Provid er Usha Simon APRN GENERAL SCRAP WORKER Unavailable + [phone] Dangelo Salinas MD Unavailable Anastasia Stearns RN Unavailable [phone] Germaine Lopez CHW Unavailable Lisa Zambrano MD Unavailable Raul Hoyos MD Unavailable Joya Lira [facility] Unavailable [phone] Joya Lira [facility] Unavailable [phone] Fabi Coates MD Unavailable [phone] Robin Zepeda MD Unavailable [phone] Danna Cardenas PA-C Unavailable [phone] Felicita Desai RN Unavailable Unavailab le Encounter Details Date Type Department Care Team (Late st Contact Info) Description 06/28/2024 [facility] [address] [place] [address] Chintan Denise , ANIMAL HUSBANDRY WORKER GENERAL SCRAP WORKER [address] [place] [address] Social History Tobacco Use Types Packs/Day Years [...] How often do you attend cheondoism or protestant serv ices? 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 Pt responded and would like to trial celexa again at a low dose. Pharmacy T'd up. CHELSEY Luke, RN [facility] 07/02/2024 at 9:48 AM * Telephone Encounter - Denise Woodson Ra, APRN CNP - 06/30/2024 8:32 AM CDT I was looking through her past records and it looked like citalopram had caused some side effects. Does she want to talk more about other options? Or trial citalopram again? Or we could try lexapro, although she mentions side effects with that as well. CHIKIS * Telephone Encounter - Qing Copeland - 06/29/2024 9:08 AM CDT Routing to provider to advise. Qing Copeland Lead Tire Repair Mechanic [facility] documented in this encounter Plan of Treatment Upcoming Encounters Date Type Department Care Team (Late st Contact Info) Description 07/20/2024 12:00 PM BARIATRIC NURSE Virtual Visit [facility] [address] [place] [phone] Denise Woodson Ra, APRN GENERAL SCRAP WORKER [address] [place] [address] 07/30/2024 8:30 AM BARIATRIC NURSE Virtual Visit [facility] Neurology Clinic [address] [address] Randy Maradiaga DO [address] [place] [address] 08/04/2024 12:00 PM BARIATRIC NURSE Virtual Visit [facility] Mental Health and Addiction Clinic [place] [address] [place] [address] OlayinkaanselmoledyLorrieanaly, [facility] [address] [place] [address] 08/04/2024 3:30 PM BARIATRIC NURSE [facility] [address] [place] [phone] Denise Woodson Ra, ANIMAL HUSBANDRY WORKER GENERAL SCRAP WORKER [address] [place], [place] [phone] 08/07/2024 1:00 PM BARIATRIC NURSE Appointment [facility] Heart [facility] 6405 [facility] [address] [place] [address] [phone] Danna Cardenas PANilesC 6405 [place] [address] 08/10/2024 12:30 PM BARIATRIC NURSE Virtual Visit [facility] Neuropsychology [address] [phone] Robin Zepeda MD [address] [place] [address] 08/17/2024 12:30 PM BARIATRIC NURSE Office Visit [facility] Neuropsychology [address] [phone] Robin Zepeda MD [address] [place] [address] 846405 Tulio Ogden, PhD [address] [address] 09/04/2024 11:00 AM BARIATRIC NURSE [facility] [address] [place] [phone] Denise Woodson Ra, ANIMAL HUSBANDRY WORKER GENERAL SCRAP WORKER [address] [facility] [place] [id number] 09/18/2024 1:00 PM BARIATRIC NURSE [facility] [address] [place] [phone] Denise Woodson Ra, ANIMAL HUSBANDRY WORKER GENERAL SCRAP WORKER [address] [facility] [place], [place] [address] 09/29/2024 9:00 AM BARIATRIC NURSE Virtual Visit [facility] Neurology [address] [phone] Randy Maradiaga, [address] [address] 10/09/2024 1:20 PM BARIATRIC NURSE Office Visit [facility] Heart [address] [place] [phone] Danna Cardenas PA-C 6405 [place] [address] 10/30/2024 4:00 PM BARIATRIC NURSE Virtual Visit [facility] Vascular Clinic [place] [address] [place] [phone] Lisa Zambrano MD [address] [place] [id number] 12/29/2024 12:45 PM CDT Office Visit [facility] [address] [facility] [address] [facility] [address]th [address],[place] [phone] Fabi Coates MD 420 [facility] 75 [place] [address] 12/29/2024 1:45 PM CDT Office Visit [facility] 2450 [facility] [address] [facility] [address]th Fl[address],[place] [phone] Fabi Coates MD [address] [address] 06/01/2025 11:15 AM CDT Appointment [facility] Imaging [address] [place] [phone] Robin Zepeda MD [address] [place] [address] 8312[address] 06/04/2025 11:00 AM CDT Office Visit [facility] Neurosurgery Clinic [place] [address] [place] [address] 3rd [place] [phone] Robin Zepeda MD [address] [place] [address] Usha Simon APRN GENERAL SCRAP WORKER [address] [place] [address] 863765 documented as of this encounter Goals Goal [...] Mental Health weekly - PT, OT and GERIATRIC NURSE, continuing through [facility] [place]: - Continue following up with PCP: 09/04/2024 - Vascular Dr. Zambarno 05/01/24 - follow up recommended in 6 months: 11/11/24 TBD #[phone]. - call independently - MTM 05/25/2024, completed - Neurosurgery Dr. Zepeda, following up with CHIEF LOAD DISPATCHER: 06/04/2025 11:00 AM (Arrive by 10:45 AM) [...] clinic with 24/7 after hours services available. Crossing Watchman will remain available as needed. documented as of this encounter Visit Diagnoses Not on filedocumented in this encounter Additional Health Concerns Active Problems Noted Date Diagnosed Date Increased risk of re-admission 02/18/2024 Assessment Noted Time PHQ-9 Depression Total Score: 5 03/17/20 24 9:45 AM CDT documented as of this encounter Care Teams Level Glass Vial Filler Relationship Specialty Start Date End Date Winston Villatoro, OD [facility] [address] [place] [address] PCP - Ophthalmology Ophthalmology 02/11/13 Denise Woodson Ra, APRN GENERAL SCRAP WORKER [address] [place] [address] PCP - General Family Practice 09/21/20 Denise Woodson Ra, APRN CNP [address] [place] [address] Assigned PCP 07/17/20 Usha Simon APRN GENERAL SCRAP WORKER 909 [facility]2121CJ [place] [address] Nurse Practitioner Neurological Surgery 01/24/24 Dangelo Salinas MD [address] [place] [address] Neurology 01/27/24 Anastasia Stearns, RN Lead Crossing Watchman 02/06/24 Germaine Lopez, W Community Health Worker Primary Care - CC 02/18/24 Lisa Zambrano MD [address] [facility] [address] [place] [address] Assigned Heart and Vascular Provider 05/08/24 07/07/24 Raul Hoyos MD 909 [facility]2121CJ [place] [address] Assigned Neuroscience Provider 05/08/24 07/07/24 Joya Lira Joleen [address] [place] [address] Pharmacist Pharmacist 05/25/24 Joya Lira [facility] [address] [place] [address] Assigned MTM Pharmacist 06/08/24 Fabi Coates MD [address] [facility] 75 [place] [address] Genetics, Clinical 06/18/24 Robin Zepeda MD 909 [facility] [id number] [place] [address] Assigned Neuroscience Provider 07/08/24 Danna Cardenas PA-C [address] [place] [address] Assigned Heart and Vascular Provider 07/08/24 Felicita Desai, RN Lead Crossing Watchman 07/14/24 documented as of this encounter
--- OUTSIDE RECORDS SUMMARY | 2024-07-16 13:52 | XMS_ITS | Encounter Summary ---
Author Organization [place] Address [address] [place] [address] Care Team Providers Care Cargoman Name Role Phone Winston Villatoro OD Unavailable [phone] Denise Woodson Ra, APRN HOSPITAL PRODUCT SPECIALIST Unavailable Denise Woodson Ra, APRN HOSPITAL PRODUCT SPECIALIST Primary Care Provid er Usha Simon APRN HOSPITAL PRODUCT SPECIALIST Unavailable [phone] Dangelo Salinas MD Unavailable Anastasia Stearns RN Unavailable [phone] Germaine Lopez CHW Unavailable [phone] Lisa Zambrano MD Unavailable [phone] Raul Hoyos MD Unavailable Joya Lira [facility] Unavailable [phone] Joya Lira [facility] Unavailable Fabi Coates MD Unavailable [phone] Encounter Details Date Type Department Care Team (Late st Contact Info) Description 06/26/2024 Orders Only (auto-released) [facility] [place] 6405 [facility] [address] [place] [phone] Danna Cardenas PA-C 0365 [place], [place] 568465 Tachycardia Social History Tobacco Use Types Packs/Day Years [...] How often do you attend druze or christianity serv ices? 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 Not on file Not on file Not on file Not on file Not on file Not on file Not on file documented as of this encounter Plan of Treatment Upcoming Encounters Date Type Department Care Team (Late st Contact Info) Description 07/20/2024 12:00 PM MACHINE FILLER Virtual Visit [facility] [address] [place] [phone] Denise Woodson Ra, APPLE PICKING SUPERVISOR HOSPITAL PRODUCT SPECIALIST [address] [place] [address] 07/30/2024 8:30 AM MACHINE FILLER Virtual Visit [facility] Neurology [facility] [place] 909 [facility] 3rd [place] [phone] Randy Maradiaga DO 909 [place] [address] 08/04/2024 12:00 PM MACHINE FILLER Virtual Visit [facility] Mental [facility] Addiction [facility] [address] [place] [address] Arthur Salas, [place] [address] [place] [address] 08/04/2024 3:30 PM MACHINE FILLER Virtual Visit [facility] [address] [place] [phone] Denise Woodson Ra, APPLE PICKING SUPERVISOR [facility] [address] [place] [address] 08/07/2024 1:00 PM MACHINE FILLER Appointment [facility] Heart Care 6405 [facility] [address] [place] [phone] Danna Cardenas, PA-C 6405 [place], [place] 588865 08/10/2024 12:30 PM MACHINE FILLER Virtual Visit [facility] Neuropsychology [place] [address] [phone] Robin Zepeda MD [address] [place] [address] [id number] [place] [address] 08/17/2024 12:30 PM MACHINE FILLER Office Visit [facility] Neuropsychology [address] [phone] Robin Zepeda MD 909 [facility] [id number] [place] [address] Tulio Ogden, PhD [address] [address] 09/04/2024 11:00 AM MACHINE FILLER Office Visit [facility] [address] [place] [phone] Denise Woodson Ra, APPLE PICKING SUPERVISOR HOSPITAL PRODUCT SPECIALIST [address] [place], [place] 3500168 09/18/2024 1:00 PM MACHINE FILLER Office Visit [facility] [address] [place] [address] Denise Woodson Ra, APPLE PICKING SUPERVISOR HOSPITAL PRODUCT SPECIALIST [address] [place], [place] 48[address] 09/29/2024 9:00 AM MACHINE FILLER Virtual Visit [facility] Neurology [address] 3rd [place] [phone] Randy Maradiaga DO [address] [place] [address] 10/09/2024 1:20 PM MACHINE FILLER Office Visit [facility] Heart [place] 537645 [facility] [address] [place] [phone] Danna Cardenas PA-C [address] [place] [address] 319885 10/30/2024 4:00 PM MACHINE FILLER Virtual Visit [facility] [place] 6405 [facility] SV[facility]enta [address] [place] [phone] Lias Zambrano MD [address] [place], [place] 851765 12/29/2024 12:45 PM CDT Office Visit [facility] Pediatric Specialty Clinic [address] [place], [place] [address]e Explorer [address] [phone] Fabi Coates MD [address] 310075 12/29/2024 1:45 PM CDT Office Visit [facility] Pediatric Specialty Clinic [address] [place] [address] [phone] Fabi Coates MD [address] [place] [address] 528065 06/01/2025 11:15 AM CDT Appointment [facility] [place] Imaging [address] [facility] [address] [place] [phone] Robin Zepeda MD [address] [place] [address] 626885 06/04/2025 11:00 AM CDT Office Visit [facility] Neurosurgery [address] 3rd [place] [phone] Robin Zepeda MD [address] [place] [address] 945895 Usha Simon APRN [address] [address] documented as of this encounter Goals Goal [...] Mental Health weekly - PT, OT and CARE COORDINATION MANAGER, continuing through [facility] [place]: - Continue following up with PCP: 09/04/2024 - Vascular Dr. Zambrano 05/01/24 - follow up recommended in 6 months: 11/11/24 TBD #[phone]. - call independently - MTM 05/25/2024, completed - Neurosurgery Dr. Zepeda, following up with WASTE MANAGEMENT ENGINEER: 06/04/2025 11:00 AM (Arrive by 10:45 [...] clinic with 24/7 after hours services available. Canal Superintendent will remain available as needed. documented as of this encounter Procedures Procedure Name Priority Date/Time Associated Diagnosis Comments ZIO PATCH MAIL OUT Routine 07/16/2024 11 :43 AM CDT Tachycardia documented in this encounter Results * ZIO PATCH MAIL OUT (07/16/2024 11:43 AM CDT) Anatomical Region Laterality Modality Other Narrative 07/16/2024 11:43 AM CDT 7-day recording. Rare ectopic beats, including an 8-beat SVT run. Patient-triggered events correlated with sinus rhythm with or without single PVCs. Danna Cardenas PA-C CV C[facility] SERVICES ORDERABL ES Final Result documented in this encounter Visit Diagnoses Diagnosis Tachycardia Tachycardia, unspecified documented in this encounter Additional Health Concerns Active Problems Noted Date Diagnosed Date Increased risk of re-admission 02/18/2024 Assessment Noted Time PHQ-9 Depression Total Score: 5 03/17/20 24 9:45 AM CDT documented as of this encounter Care Teams Cargoman Relationship Specialty Start Date End Date Winston Villatoro OD [facility] [place] [address] [place] [address] PCP - Ophthalmology Ophthalmology 02/11/13 Denise Woodson Ra, APRN HOSPITAL PRODUCT SPECIALIST [address] [place] [address] PCP - General Family Practice 09/21/20 Denise Woodson Ra, APRN HOSPITAL PRODUCT SPECIALIST [address] [place] [address] Assigned PCP 07/17/20 Usha Simon APRN HOSPITAL PRODUCT SPECIALIST [address] [facility], [place] 9[address] Nurse Practitioner Neurological Surgery 01/24/24 Dangelo Salinas MD [address] [place] [address] Neurology 01/27/24 Anastasia Stearns, RN Lead Canal Superintendent 02/06/24 Germaine Lopez, W Community Health Worker Primary Care - CC 02/18/24 Lisa Zambrano MD [address] [place] [address] Assigned Heart and Vascular Provider 05/08/24 07/07/24 Raul Hoyos MD [address] [facility], [place] [address]25 Assigned Neuroscience Provider 05/08/24 07/07/24 Joya Lira RPH [address] [place], [place] [phone] Pharmacist Pharmacist 05/25/24 Joya Lira [facility] [address] [place], [place] [phone] Assigned MTM Pharmacist 06/08/24 Fabi Coates MD [address] [place] [address] 75 [place], [place] 615805 Genetics, Clinical 06/18/24 documented as of this encounter
--- OUTSIDE RECORDS SUMMARY | 2024-07-16 13:52 | XMS_ITS | Encounter Summary ---
Author Organization [place] Address [address] [place] [address] Care Team Providers Care Pressure Tester Operator Name Role Phone Shauna Winston Se OD Unavailable [phone] Denise Woodson Ra, APRN RN NURSERY Unavailable + [phone] Denise Woodson Ra, APRN RN NURSERY Primary Care Provid er Usha Simon APRN RN NURSERY Unavailable [phone] Dangelo Salinas MD Unavailable Anastasia Stearns RN Unavailable [phone] Germaine Lopez CHW Unavailable Lisa Zambrano MD Unavailable [phone] Raul Hoyos MD Unavailable Joya Lira [facility] Unavailable [phone] Joya Lira [facility] Unavailable [phone] Fabi Coates MD Unavailable [phone] Encounter Details Date Type Department Care Team (Late st Contact Info) Description 06/16/2024 Medical Correspondence [facility] Information Management [address] [facility] [address] [place] [address] Scan, Non-Provider Social History Tobacco Use Types Packs/Day Years [...] How often do you attend yarsani or synagogue serv ices? Never 02/28/2024 Do [...] building, in an overnight mcc, or couch-surfing.) No 05/19/2024 Are you worried [...] on file Legal Sex 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 RECEIVER SETTER Gender Identity Not on file Sexual Orientation [...] st Contact Info) Description 07/20/2024 12:00 PM RECEIVER SETTER Virtual Visit [facility] [address] [place] [phone] Denise Woodson Ra, DATA COLLECTION INTERVIEWER [facility] [address] [place], [place] [phone] 07/30/2024 8:30 AM RECEIVER SETTER Virtual Visit [facility] Neurology [address] 3rd [place] [address] Randy Maradiaga DO 909 [place] [address] 08/04/2024 12:00 PM RECEIVER SETTER Virtual Visit [facility] Mental Health and Addiction Clinic [place] [address] [place] [address] Arthur Salas, [facility] [address] [place] [address] 08/04/2024 3:30 PM RECEIVER SETTER Virtual Visit [facility] [address] [place] [phone] Denise Woodson Ra, DATA COLLECTION INTERVIEWER [facility] [address] [place], [place] 1747368 08/07/2024 1:00 PM RECEIVER SETTER Appointment [facility] 6405 [facility] [address] [place] [phone] Danna Cardenas PA-C 6405 [place], [place] 426445 08/10/2024 12:30 PM RECEIVER SETTER Virtual Visit [facility] Neuropsychology [address] [phone] Robin Zepeda MD [address] [place] [address] 08/17/2024 12:30 PM RECEIVER SETTER Office Visit [facility] Neuropsychology [address] [phone] Robin Zepead MD [address] [place] [address] Tulio Ogden, PhD [address] [address] 09/04/2024 11:00 AM RECEIVER SETTER Office Visit [facility] [address] [place] [phone] Denise Woodson Ra, DATA COLLECTION INTERVIEWER RN NURSERY [address] [place], [place] 3371368 09/18/2024 1:00 PM RECEIVER SETTER Office Visit [facility] [address] [place] [phone] Denise Woodson Ra, DATA COLLECTION INTERVIEWER RN NURSERY [address] [place], [place] [phone] 09/29/2024 9:00 AM RECEIVER SETTER Virtual Visit [facility] Neurology [address] [phone] Randy Maradiaga, [address] [address] 10/09/2024 1:20 PM RECEIVER SETTER Office Visit [facility] Heart [address] [place] [phone] Danna Cardenas PA-C 6405 [place] [address] 10/30/2024 4:00 PM RECEIVER SETTER Virtual Visit [facility] Vascular [place] [address] [address] [place] [phone] Lisa Zambrano MD [address] [facility]800 [place] [address] 12/29/2024 12:45 PM CDT Office Visit [facility] [address] [place], [place] [address] [address] [phone] Fabi Coates MD [address] [address] 12/29/2024 1:45 PM CDT Office Visit [facility] [address] [place], [place] [address] [address] [phone] Fabi Coates MD [address] [place] [address] 06/01/2025 11:15 AM CDT Appointment [facility] Imaging [address] [address] [place] [phone] Robin Zepeda MD [address] [place] [address] 06/04/2025 11:00 AM CDT Office Visit [facility] Neurosurgery [address] 3rd [place] [phone] Robin Zepeda MD [address] [place] [address] 914655 Usha Simon APRN [address] 467035 documented as of this encounter Goals Goal [...] Mental Health weekly - PT, OT and MOBILE DEVELOPMENT MANAGER, continuing through [facility] [place]: - Continue following up with PCP: 09/04/2024 - Vascular Dr. Zambrano 05/01/24 - follow up recommended in 6 months: 11/11/24 TBD #[phone]. - call independently - MTM 05/25/2024, completed - Neurosurgery Dr. Zepeda, following up with BENEFITS ADVISOR: 06/04/2025 11:00 AM (Arrive by 10:45 AM) [...] clinic with 24/7 after hours services available. Chemistry Technologist will remain available as needed. documented as of this encounter Visit Diagnoses Not on filedocumented in this encounter Additional Health Concerns Active Problems Noted Date Diagnosed Date Increased risk of re-admission 02/18/2024 Assessment Noted Time PHQ-9 Depression Total Score: 5 03/17/20 24 9:45 AM CDT documented as of this encounter Care Teams Pressure Tester Operator Relationship Specialty Start Date End Date Winston Villatoro OD [facility] [place] [address] [place] [address] PCP - Ophthalmology Ophthalmology 02/11/13 Denise Woodson Ra, APRN RN NURSERY [address] [place] [address] PCP - General Family Practice 09/21/20 Denise Woodson Ra, APRN RN NURSERY [address] [place] [address] Assigned PCP 07/17/20 Usha Simon APRN RN NURSERY [address] [address] Nurse Practitioner Neurological Surgery 01/24/24 Dangelo Salinas MD [address] [place] [address] Neurology 01/27/24 Anastasia Stearns, RN Lead Chemistry Technologist 02/06/24 Germaine Lopez, [facility] Community Health Worker Primary Care - CC 02/18/24 Lisa Zambrano MD 6405 [facility] [address] [place] [address] Assigned Heart and Vascular Provider 05/08/24 07/07/24 Raul Hoyos MD [address] [address] Assigned Neuroscience Provider 05/08/24 07/07/24 Joya Lira RPH [address] [place] [address] Pharmacist Pharmacist 05/25/24 Joya Lira RPH [address] [place] [address] Assigned MTM Pharmacist 06/08/24 Fabi Coates MD [address] [place] [address] 75 [place] [address] Genetics, Clinical 06/18/24 documented as of this encounter
--- OUTSIDE RECORDS SUMMARY | 2024-07-16 13:52 | XMS_ITS | Encounter Summary ---
Author Organization [facility] Address [address] [place] [address] Care Team Providers Care Soft Mud Molder Name Role Phone Winston Villatoro Se OD Unavailable [phone] Denise Woodson Ra, APRN DEAL ARCHITECT Unavailable + [phone] Denise Woodson Ra, APRN DEAL ARCHITECT Primary Care Provid er Usha Simon APRN DEAL ARCHITECT Unavailable + [phone] Dangelo Salinas MD Unavailable Anastasia Stearns RN Unavailable [phone] Germaine Lopez CHW Unavailable Lisa Zambrano MD Unavailable Raul Hoyos MD Unavailable [phone] Joya Lira [facility] Unavailable [phone] Joya Lira [facility] Unavailable [phone] Fabi Coates MD Unavailable [phone] Reason for Referral * Consultation (Routine: Next available opening) - Pending Review Specialty Diagnoses / Procedures Referred By Nila shah Referred To Contact Diagnoses Trigger point of neck Randy Maradiaga DO [address] [place] [address] Phone: tel: fax: Referral ID Status Reason Start Date Expiration Date V isits Requested Visits Authorized [id number] Pending Review 07/02/2024 07/02/2025 1 1 Question Answer Reason for Referral: Other My Clinical Question Is: trigger points on left trap and neck musculatre. Could consider occipital nerualgia treatment if not helpful. Scheduling Instructions: [facility] will call you to coordinate your care as prescribed by your provider. A lead generation representative will call you within 2 business days to help schedule your appointment, or you may contact the [facility] Chemistry Technologist at . Comments Please be aware that coverage of these services is subject to the terms and limitations of your health insurance plan. Call member services at your health plan with any benefit or coverage questions. [facility] will call you to coordinate your care as prescribed by your provider. A lead generation representative will call you within 2 business days to help schedule your appointment, or you may contact the [facility] Chemistry Technologist at . Reason for Visit * Reason Comments Consult NEW NEUROLOGY * Consultation (Routine: Next available opening) - Pending Review Specialty Diagnoses / Procedures Referred By Nila shah Referred To Contact Diagnoses Dural arteriovenous fistula History of seizure History of stroke Pain of right upper extremity Stevo Islas MD [address] [place] [address] Phone: tel: fax: Referral ID Status Reason Start Date Expiration Date V isits Requested Visits Authorized [id number] Pending Review 05/16/2024 05/16/2025 1 1 Encounter Details Date Type Department Care Team (Late st Contact Info) Description 07/02/2024 7:30 AM CDT Virtual Visit [facility] Neurology [facility] [address] [place] [address] Randy Maradiaga DO [address] [place] [address] [id number] Trigger point of neck (Primary Dx); History of seizure Social History Tobacco Use Types Packs/Day Years [...] How often do you attend hoahaoism or orthodoxy serv ices? 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 If not, then I would consider occipital neuralgia treatment. Both interventions would be through PM&R providers, so I will place a referral for you. documented in this encounter Progress Notes * Randy Maradiaga, DO - 07/02/2024 7:30 AM CDT [facility] Neurology Consultation Alcon Zamora Age: [age] year old Date of : 1975 Requesting physician: Denise Good Ra Reason for Consultation: headache History of Presenting Symptoms: Alcon Zamora is a 48 year old female who presents today for evaluation of headache. Prior medical history of fibromyalgia, MONAE, The patient has a pertinent medical history of CVA (luis-procedural 01/09/2024, b/l hemisphere L>R involving (frontal, parietal, left pre and post central gyrus, left supra marginal gyrus) w/subsequnt right hemiparesis), EDS, L-sigmoid dural AVF, GTC (see epilepsy notes 05/05/2024), and FMD. The patient had an angiogram 01/09/2024 which led to multiple luis-procedural strokes, with angiogram showing R-iCA dissection and findings suggestive for FMD. Recovery was complicated by seizure, andher dural AVF is followed with with NSGY (Dr. Zepeda, 06/02/2024). The patient was followed with stroke neurology 04/14/2024 where it was noted she was on 3x81mg ASA for prior infarctions. A referral for headache was made 05/15/2024 by her stroke provider. Neuropsychology testing was recommended givencognitive issues being reported, and this is scheduled for 08/2024. The patient's seizure event was evaluated with epilepsy providers 05/05/2024, and it is noted she had one single GTC following her stroke in 11/2023, as well as other non-convulsive and non-sterotyped events in 01/2024 of an unclear neature. She had adverse effects of keppra (worsened behavior), so she was to switch to oxcarbazepine, while staying on a low dose of keppra 375 mg QD. Today, the patient describes having her strokes and not knowing what areas of her brain are impacted. 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 She gradually went back to work, and did have generalized fatigue. However, then she started having her stroke symptoms come back (right sided numbness, tingling, light-headed sensations, dizziness, abnormal gait) along with additional cognitive difficulties (word finding, concentration) when working more. After dropping her hours down, she still noted these issues being present. Around 04/2024, she developed headaches with blurred vision, chest pain, leading to her 05/14/2024 admission where she also noted having left side numbness/tingling (different than in the past, as she previously had left sided symptoms). Her headaches worsened in the hospital but got under better control with use of tylenol/oxycodone/dilaudid). With neurology recommending starting Depakote but the patient not being interested in this treatment. During the admission, when being given multiple medications she did have hallucinations and what seems like vivid dreams. Through the month of 05/2024, she continued to have fatigue, pressure of her head, and this would occur mostly when doing activity. She also noted sweatiness occurring in the body. She has slowly started to have improved symptoms overall since 05/2024. She still experiences poor sleep, often waking 3-4 times a night for unknown reasons with sweating being profuse. She also has occasional spasms of her legs that don't impact strength. She does feel that upon stopping trileptal she had an improvement of symptoms to some degree. She continues on keppra at 375 mg BID. The patient did have mild migraines in her early 20's, which led to photophobia and needing to lay in a dark room. After her atrial septal defect was repaired her migraines dissipated. When she tries to think more/use higher functions of brain, her headache comes up. There is no light sensitivity, sound sensitivity, nausea/vomiting. They are not triggered by foods, time of day. Thepain is in the left posterior scalp and posterior occipital region up to the vertex. There is a tingling/burning sensation in a circumference of a esdras. It will last an hour or so. Her headache getsbetter with tylenol. Medications: ASA 243 mg every day Keppra 375 mg BID Melatonin Rosuvastatin Trazodone 100 mg QD Physical Exam: General: Seated comfortably in no acute distress. Neurologic: Mental Status: Fully alert, attentive and oriented. Speech clear and fluent, no paraphasic errors. Cranial Nerves: EOMI with normal smooth pursuit. Facial movements symmetric. Hearing not formally tested but intact to conversation. No dysarthria. Motor: No tremors or other abnormal movements observed. Data: Pertinent prior to visit Imaging: MRI brain, MRA head and neck: 05/15/2024: - no acute findings, remote hemosiderin deposition from remote insult of left temporal region (stable compared to prior imaging) - No stenosis/vascular injury of the head - normal vasculature of the neck Brain MRI Impression: 1. No acute intracranial [...] ventricles are proportionate to the cerebral sulci. Diffusion- weighted images reveal no abnormal reduceddiffusion. Normalmajor vascular intracranial flow-voids.Post contrast images demonstrate no abnormal intracranial enhancement.No abnormality of the skull marrow signal. The visualized portions of paranasal sinuses, and mastoid air cells are relatively clear. The orbits are grossly unremarkable. Brain MRI 01/19/24 IMPRESSION: No acute infarct. Scattered subcortical foci of T2 hyperintensity and enhancement in the left frontal and parietal lobes are likely due to the reported subacute infarcts. Assessment and Plan: Assessment: Headaches - likely musculoskeletal and trigger point, possibly from occipital neuralgia Seizure - likely provoked from CVA - likely had side effects with trileptal to some degree CVA hx The patient's primary issues right now are recovery timelines, and headache. Her symptoms of head pain don't have migrainous components to them, so abortive and migraine prophylaxis doesn't seem a likely treatment option. The way her pain is described is neuropathic, and the location follows both trigger points of neck and trapezius musculature, as well as occipital neuralgia. The pain is not that sharp or stabbing, so I think a first point of treatment may be trigger point related, and I will refer to PM&R for this consideration. Regarding her events of this fall and summer, I do think that she likely had some side-effects to trileptal and that she could continue on monotherapy with keppra for now given her lack of noted and specific seizure events since being on keppra in general. Regarding her stroke and cognitive issues, I think neuropsychology testing will be helpful to clarify domain deficits and likely limitations at work. Much of her concentration and recall issues soundakin to TBI recovery at this time, and hopefully she has continued improvements over the next year. Plan: PM&R referral Keppra 375 mg BID Follow up in Neurology clinic in 3 months, or should new concerns arise. Afua Maradiaga D.O. Bulldozer Engineer of Neurology Total time today (82 min) in this patient encounter was spent on pre-charting, counseling and/or coordination of care. The patient is in agreement with this plan and has no further questions. The longitudinal plan of care for the diagnosis(es)/condition(s) as documented were addressed during this visit. Due to the added complexity in care, I will continue to support Alcon in the subsequent management and with ongoing continuity of care. * Randy Maradiaga DO - 07/02/2024 7:30 AM CDT Virtual Visit Details Type of service: Video Visit Originating Location (pt. Location): Home Distant Location (provider location): On-site Platform used for Video Visit: Bobby documented in this encounter Nursing Notes * Mikayla Cagle - 07/02/2024 7:30 AM CDT Current patient location: [address] [place] [address] Is the patient currently in the state of [place]? YES Visit mode:VIDEO If the visit is dropped, the patient can be reconnected by: VIDEO VISIT: Text to cell phone: Telephone Information: Will anyone else be joining the visit? NO (If patient encounters technical issues they should call [phone] Are changes needed to the allergy or medication list? No, but pt will be starting Celexa medicationagain soon, PCP just prescribed low dose Are refills needed on medications prescribed by this physician? NO Rooming Documentation: Not applicable Reason for visit: Consult (NEW NEUROLOGY) Mikayla Cagle VVF documented in this encounter Plan of Treatment Upcoming Encounters Date Type Department Care Team (Late st Contact Info) Description 07/20/2024 12:00 PM ANALYSIS CONSULTANT Virtual Visit [facility] [address] [place] [phone] Denise Woodson Ra, LOFT WORKER DEAL ARCHITECT [address] [place], [place] [id number] 07/30/2024 8:30 AM ANALYSIS CONSULTANT Virtual Visit [facility] Neurology [address] [place] [address] Randy Maradiaga, [address] [address] 08/04/2024 12:00 PM ANALYSIS CONSULTANT Virtual Visit [facility] [address] [place] [address] Arthur Salas, [address] [place] [address] 08/04/2024 3:30 PM ANALYSIS CONSULTANT [facility] [address] [place] [phone] Denise Woodson Ra, LOFT WORKER DEAL ARCHITECT [address] [place], [place] [phone] 08/07/2024 1:00 PM ANALYSIS CONSULTANT Appointment [facility] [address] [place] [phone] Danna Cardenas PA-C [address] [facility] [place] [address] 08/10/2024 12:30 PM ANALYSIS CONSULTANT Virtual Visit [facility] Neuropsychology [address] [phone] Robin Zepeda MD [address] [place] [address] 08/17/2024 12:30 PM ANALYSIS CONSULTANT Office Visit [facility] Neuropsychology [address] [phone] Robin Zepeda MD [address] [place] [address] Tulio Ogden, PhD [address] [id number] 09/04/2024 11:00 AM ANALYSIS CONSULTANT Office Visit [facility] [address] [place] [phone] Denise Woodson Ra, LOFT WORKER DEAL ARCHITECT [address] [place] [address] 09/18/2024 1:00 PM ANALYSIS CONSULTANT Office Visit [facility] [address] [place] [phone] Denise Woodson Ra, LOFT WORKER DEAL ARCHITECT [address] [place], [place] [phone] 09/29/2024 9:00 AM ANALYSIS CONSULTANT Virtual Visit [facility] Neurology [address] [phone] Randy Maradiaga DO [address] [place] [address] 10/09/2024 1:20 PM ANALYSIS CONSULTANT Office Visit [facility] Heart [facility] [address] [facility] [address] [place] [phone] Danna Cardenas PA-C [address] [facility] [place] [phone] 10/30/2024 4:00 PM ANALYSIS CONSULTANT Virtual Visit [facility] Vascular [facility] [address] [place] [phone] Lisa Zambrano MD [address] [place] [phone] 12/29/2024 12:45 PM CDT Office Visit [facility] [address] [place] [address] [phone] Fabi Coates MD [address] [place] [phone] 12/29/2024 1:45 PM CDT Office Visit [facility] [address] [place] [phone] Fabi Coates MD [address] [place] [address] 06/01/2025 11:15 AM CDT Appointment [facility] [address] [facility] [address] [place] [phone] Robin Zepeda MD [address] [facility] [id number] [place] [address] 06/04/2025 11:00 AM CDT Office Visit [facility] Neurosurgery Clinic [place] [address] [place] [address] 3rd [place] [address] Robin Zepeda MD [address] [place] [phone] Usha Simon APRN DEAL ARCHITECT [address] [place] [address] [phone] Scheduled Referrals Name Type Priority Associated Diagnoses Orde r Schedule Adult Physical Medicine and Rehab Electric Cell Tender Referral Referral Routine: Next available opening Trigger point of neck Expected: 07/02/2024 (Approximate), Expires: 07/02/2025 documented as of this encounter Goals Goal Patient Goal Type Associated Problems Recent Progress Patient-Stated? Author I would like additional resources and support to manage my health and prevent future avoidable ED visits/hospital admissions Care Plan Increased risk of re-admission 30%( 4 2:50 PM CDT) No Anastasia Setarns, RN Note: Barriers: diagnosis of multiple, chronic, complex medical conditions, provider availability - wait time to complete appointments, etc. Strengths: motivated, engaged in care coordination Patient expressed understanding of goal: yes Action steps to achieve this goal: 1. I will follow up with my providers as scheduled/recommended - Mental Health weekly - PT, OT and SCHEDULING AGENT, continuing through [facility] [place]: - Continue following up with PCP: 09/04/2024 - Vascular Dr. Zambrano 05/01/24 - follow up recommended in 6 months: 11/11/24 TBD #[phone]. - call independently - MTM 05/25/2024, completed - Neurosurgery Dr. Zepeda, following up with GAUGE INSPECTOR: 06/04/2025 11:00 AM (Arrive by 10:45 AM) Usha Simon APRN DEAL ARCHITECT 2. I will take my medications as prescribed. 3. I will discuss, review, schedule and complete recommended overdue health maintenance with my Primary Care Provider. 4. I will contact my care team with questions, concerns, support needs. I will use the clinic as a resource and I understand I can contact my clinic with 24/7 after hours services available. Pneudraulic Systems Mechanic will remain available as needed. documented as of this encounter Visit Diagnoses Diagnosis Trigger point of neck- Primary Cervicalgia History of seizure documented in this encounter Additional Health Concerns Active Problems Noted Date Diagnosed Date Increased risk of re-admission 02/18/2024 Assessment Noted Time PHQ-9 Depression Total Score: 5 03/17/20 24 9:45 AM CDT documented as of this encounter Care Teams Soft Mud Molder Relationship Specialty Start Date End Date ShaunaWinston moralez OD [facility] [address] [facility] [address] [place] [address] PCP - Ophthalmology Ophthalmology 02/11/13 Denise Woodson Ra, APRN DEAL ARCHITECT [address] [place] [address] PCP - General Family Practice 09/21/20 Denise Woodson Ra, APRN DEAL ARCHITECT [address] [facility] [place] [address] Assigned PCP 07/17/20 Usha Simon APRN DEAL ARCHITECT [address] [facility], [place] [address] Nurse Practitioner Neurological Surgery 01/24/24 Dangelo Salinas MD [address] [id number] Neurology 01/27/24 Anastasia Stearns, RN Lead Pneudraulic Systems Mechanic 02/06/24 Germaine Lopez, W Community Health Worker Primary Care - CC 02/18/24 Lisa Zambrano MD [address] [facility] [address] [place] [address] Assigned Heart and Vascular Provider 05/08/24 07/07/24 Raul Hoyos MD [address] [place] [address] [address] Assigned Neuroscience Provider 05/08/24 07/07/24 Joya Lira RPH [address] [address] Pharmacist Pharmacist 05/25/24 Joya Lira RPH [address] [place] [address] Assigned MTM Pharmacist 06/08/24 Fabi Coates MD [address] [place] [address] [address] [place] [address] Genetics, Clinical 06/18/24 documented as of this encounter
--- OUTSIDE RECORDS SUMMARY | 2024-07-16 13:52 | XMS_ITS | Encounter Summary ---
Author Organization [facility] Address [address] [place] [address] Care Team Providers Care Brood Hatchery Manager Name Role Phone Shauna Winston Se OD Unavailable [phone] Denise Woodson Ra, APRN CONFIGURATION ENGINEER Unavailable + [phone] Denise Woodson Ra, APRN CONFIGURATION ENGINEER Primary Care Provid er Usha Simon APRN CONFIGURATION ENGINEER Unavailable + [phone] Dangelo Salinas MD Unavailable Anastasia Stearns RN Unavailable Germaine Lopez CHW Unavailable Lisa Zambrano MD Unavailable Raul Hoyos MD Unavailable [phone] Joya Lira [facility] Unavailable [phone] Joya Lira [facility] Unavailable [phone] Fabi Coates MD Unavailable [phone] Robin Zepeda MD Unavailable [phone] Danna Cardenas PA-C Unavailable [phone] Felicita Desai RN Unavailable Unavailab le Reason for Referral * Consultation (Routine) - Pending Review Specialty Diagnoses / Procedures Referred By Contlandon t Referred To Contact Cardiovascular Disease Diagnoses Chest pain, unspecified type Tachycardia Danna Cardenas PA-C [address] [place] [address] Phone: tel: fax: Referral ID Status Reason Start Date Expiration Date V isits Requested Visits Authorized [id number] Pending Review 06/26/2024 06/26/2025 1 1 Question Answer Follow-up with: Self Reason for follow-up: General Cardiology Scheduling Instructions: [facility] will call you to coordinate your care as prescribed by your provider. If you have concerns about scheduling, please call [phone]. Comments [facility] will call you to coordinate your care as prescribed by your provider. If you have concerns about scheduling, please call [phone]. * Diagnostic Imaging CT Scan (Routine) - Pending Review Specialty Diagnoses / Procedures Referred By Contac t Referred To Contact Radiology. Diagnoses Chest pain, unspecified type Procedures CTA Angiogram coronary artery Danna Cardenas PA-C [address] [place] [address] Phone: tel: fax: Referral ID Status Reason Start Date Expiration Date V isits Requested Visits Authorized [id number] Pending Review 06/26/2024 06/26/2025 1 1 * CV Testing (Routine) - Pending Review Specialty Diagnoses / Procedures Referred By Contac t Referred To Contact Diagnoses Tachycardia Procedures ZIO PATCH MAIL OUT Danna Cardenas PA-C [address] [place] [address] Phone: tel: fax: Referral ID Status Reason Start Date Expiration Date V isits Requested Visits Authorized [id number] Pending Review 06/26/2024 06/26/2025 1 1 Reason for Visit * Consultation (Routine: Next available opening) - Pending Review Specialty Diagnoses / Procedures Referred By Nila shah Referred To Contact Cardiovascular Disease Diagnoses Chest pain, unspecified type Danna Cardenas PA-C [address] [place] [address] Phone: tel: fax: Referral ID Status Reason Start Date Expiration Date V isits Requested Visits Authorized [id number] Pending Review 05/15/2024 05/15/2025 1 1 Encounter Details Date Type Department Care Team (Late st Contact Info) Description 06/26/2024 2:40 PM CDT Office Visit [facility] [place] [address] [facility] [address] [place] [phone] Danna Cardenas PA-C [address] [facility] [place] [phone] Tachycardia (Primary Dx); Chest pain, unspecified type Social History Tobacco Use Types [...] often do you attend latter day or religion serv ices? 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 Not on file Not on file Not on file Not on file Not on file Not on file Not on file documented as of this encounter Last Filed Vital Signs Vital Sign Reading Time Taken Comments Blood Pressure 137/83 06/26/2024 2:49 PM CDT Pulse 73 06/26/2024 2:49 PM CDT Temperature - - Respiratory Rate 18 06/26/2024 2:33 PM CDT Oxygen Saturation 100% 06/26/2024 2:33 PM CDT Inhaled Oxygen Concentration - - Weight 99.8 kg (220 lb) 06/26/2024 2:33 PM CDT Height 172.7 cm (5' 8) 06/26/2024 2:33 PM CDT Body Mass Index 33.45 06/26/2024 2:33 PM CDT documented in this encounter Patient Instructions * Patient Instructions* Danna Cardenas PA-C - 06/26/2024 2:40 PM CDT Images from the original note were not included. Thank you for your visit with the [facility] today. Today's plan: Medication changes: none Wear Zio monitor for [address] coronary angiogram Follow up with me in 3 months If you have questions or concerns please call the nurse team at [phone] or send a [employer] message. Scheduling phone number: [phone] It was a pleasure seeing you today! Danna Cardenas PA-C Physician Orthopedic Nurse [facility] documented in this encounter Progress Notes * Danna Cardenas PA-C - 06/26/2024 2:40 PM CDT Images from the original note were not included. ~Cardiology Clinic Visit~ Alcon Zamora Date of : 1975 Age: [age] year old Primary Brooch And Bracelet Maker: Dr. Zurita Assessment and Plan: Alocn Zamora is a very pleasant 48 year old female who is here today for post hospital follow up Chest discomfort Negative lexiscan stress test 04/[address] coronary angiogram Elevated heart rate and dizziness with exertion Order placed for 7 day Zio monitor Continue compression stockings, abd binder, and staying well hydrated Cerebral angiogram in December 2023 complicated by postprocedure CVAs Follows with neurology ASD closure in 2005 Plan: Due to patients chest pain discomfort still persisting will obtain a CT coronary angiogram. Suspicious chest discomfort is secondary to elevated heart rate with exertion vs ischemia. Zio monitor ordered to rule out any arrhythmias and better understand patients average heart rate. EKG today showed NSR. Dizziness and elevated heart rate on exertion prompt concern for possible autonomic dysfunction. Ofnote, she cannot regulate her body temperature after her CVAs. Orthostatics negative today. Will further address after above results are obtained. Follow up with me in 3 months Danna Cardenas PA-C Physician Orthopedic Nurse [facility] Pager: [phone] History of Presenting Illness: Alcon Zamora is a very pleasant 48 year old female with a history of ASD closure in 2005 and a cerebral angiogram in December 2023 complicated by postprocedure CVAs In brief, I had the pleasure of meeting Ms. Zamora during her admission from 05/14-05/19/2024 for chestpain. EKG showed t wave inversion. Troponin and lexiscan were negative. Recommendation for a CT coronary angiogram in the outpatient setting if chest pain symptoms continue to persist. Of note, CTA of the chest in March 2024 demonstrated no significant coronary artery calcification. Echocardiogram in January 2024 had an LVEF of 55-60% with mild mitral regurgitation. Patient reports still having chest pain about once a week localized to her left armpit and mediastinum. It is associated with a faster heart rate and exertion. Since April patient has noticed when she minimally exerts herself her heart rate becomes elevated, she starts sweating and she can become dizzy. Since the onset of these symptoms, she has lost her stamina and is not able to walk on the treadmill for long periods of time. PT/OT recommended she try compression stockings, abd binder and elevating the head of her bed. This has helped improve her symptoms to the point where they are almostresolved when she uses these supportive measures. Denies shortness of breath, orthopnea and PND. Denies lightheadedness, near syncope and syncope. Taking medications daily as prescribed. Blood pressure 137/83 and HR 73 in clinic today. 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 No Social History Narrative Not on file Social Determinants of Health Financial Resource Strain: Low Risk (05/19/2024) Financial Resource Strain Within the past 12 months, have you or your family members you live with been unable to get utilities (heat, electricity) when it was really needed?: No Food Insecurity: Low Risk (05/19/2024) Food Insecurity Within the past 12 months, did you worry that your food would run out before you got money to buy more?: No Within the past 12 months, did the food you bought just not last and you didn???t have money to getmore?: No Transportation Needs: Low Risk (05/19/2024) Transportation Needs Within the past 12 months, [...] 10 min Stress: Stress Concern Present (02/28/2024) [facility] [place] [employer] - Occupational Stress Questionnaire Feeling of Stress : To some extent Social Connections: Socially Isolated (02/28/2024) Social Connection and Isolation Panel [NHANES] Frequency of Communication with Friends and Family: Once a week Frequency of Social Gatherings with Friends and Family: Never Attends Restoration Services: Never Active Member of Clubs or Organizations: No Attends Club or Organization Meetings: Never Marital Status: Interpersonal Safety: High Risk (05/17/2024) Interpersonal Safety Do you feel physically and emotionally safe where you currently live?: No Within the past 12 months, have you been hit, slapped, kicked or otherwise physically hurt by someone?: No Within the past 12 months, have you been humiliated or emotionally abused in other ways by your partner or ex-partner?: No Housing Stability: High Risk (05/19/2024) Housing Stability Do you have housing? : No Are you worried about losing your housing?: No Review of Systems: Please see HPI Physical Exam: Vitals: BP 137/83 (Patient Position: Supine) Pulse 73 Resp 18 Ht 1.727 m (5' 8) Wt 99.8 kg(220 lb) LMP 01/07/2006 SpO2 100% BMI 33.45 kg/m?? Wt Readings from Last 4 Encounters: 06/08/24 98 kg (216 lb 1.6 oz) 06/02/24 96.9 kg (213 lb 11.2 oz) 05/26/24 98.2 kg (216 lb 8 oz) 05/16/24 95 kg (209 lb 7 oz) GEN: well nourished, in no acute distress. NECK: Supple. JVP was not appreciated. C/V: Regular rate and rhythm, no murmur, rub or gallop. RESP: Respirations are unlabored. Clear to auscultation bilaterally without wheezing, rales, or rhonchi. EXTREM: Bilateral lower extremities with no edema. SKIN: Warm and dry. Data: LIPID RESULTS: Lab Results Component Value Date CHOL 155 05/15/2024 CHOL 238 (H) 07/27/2020 HDL 53 05/15/2024 HDL 61 07/27/2020 LDL 82 05/15/2024 LDL 150 (H) 07/27/2020 TRIG 102 05/15/2024 TRIG 136 07/27/2020 CHOLHDLRATIO 3.9 03/16/2008 LIVER ENZYME RESULTS: Lab Results Component Value Date AST 19 03/03/2024 AST 10 01/04/2021 ALT 13 03/03/2024 ALT 18 01/04/2021 CBC RESULTS: Lab Results Component Value Date WBC 5.4 05/15/2024 WBC 7.4 01/04/2021 RBC 4.37 05/15/2024 RBC 4.51 01/04/2021 HGB 13.6 05/15/2024 HGB 13.9 01/04/2021 HCT 40.8 05/15/2024 HCT 42.2 01/04/2021 MCV 93 05/15/2024 MCV 94 01/04/2021 MCH 31.1 05/15/2024 MCH 30.8 01/04/2021 MCHC 33.3 05/15/2024 MCHC 32.9 01/04/2021 RDW 11.7 05/15/2024 RDW 11.7 01/04/2021 PLT 172 05/15/2024 PLT 210 01/04/2021 BMP RESULTS: Lab Results Component Value Date NA 141 05/15/2024 NA 138 01/04/2021 POTASSIUM 4.5 05/15/2024 POTASSIUM 4.0 07/27/2021 POTASSIUM 4.3 01/04/2021 CHLORIDE 106 05/15/2024 CHLORIDE 105 07/27/2021 CHLORIDE 106 01/04/2021 CO2 27 05/15/2024 CO2 26 07/27/2021 CO2 31 01/04/2021 ANIONGAP 8 05/15/2024 ANIONGAP 8 07/27/2021 ANIONGAP 1 (L) 01/04/2021 GLC 89 05/15/2024 GLC 78 05/10/2024 GLC 95 07/27/2021 GLC 87 01/04/2021 BUN 15.4 05/15/2024 BUN 20 07/27/2021 BUN 13 01/04/2021 CR 0.90 05/15/2024 CR 0.77 01/04/2021 GFRESTIMATED 79 05/15/2024 GFRESTIMATED >60 02/04/2024 GFRESTIMATED >90 01/04/2021 GFRESTBLACK >90 01/04/2021 TIFF 9.1 05/15/2024 TIFF 8.7 01/04/2021 A1C RESULTS: No results found for: A1C INR RESULTS: Lab Results Component Value Date INR 0.92 05/10/2024 INR 0.94 02/13/2024 Medications Current Outpatient Medications Medication Sig Dispense Refill acetaminophen (TYLENOL) 500 MG tablet Take 1-2 tablets (500-1,000 mg) by mouth 3 times daily as needed for mild pain or headaches albuterol (PROAIR HFA/PROVENTIL HFA/VENTOLIN HFA) 108 (90 Base) MCG/ACT inhaler Inhale 2 puffs intothe lungs every 4 hours as needed for shortness of breath / dyspnea or wheezing 1 Inhaler 3 aspirin 81 MG EC tablet Take 2 tablets (162 mg) by mouth daily. (Patient taking differently: Take 3tablets by mouth daily.) cetirizine (ZYRTEC) 10 MG tablet Take 10 mg by mouth at bedtime. fluticasone-vilanterol (BREO ELLIPTA) 200-25 MCG/ACT inhaler Inhale 1 puff into the lungs daily. 3 each 1 levETIRAcetam (KEPPRA) 750 MG tablet Take 1/2 of 750 mg tab BID Lidocaine (LIDOCARE) 4 % Patch Place 1 patch onto the skin daily as needed. To prevent lidocaine toxicity, patient should be patch free for 12 hrs daily. LORazepam (ATIVAN) 1 MG tablet Take 1/2-1 tablet daily as needed for onset of dizziness. 10 tablet 0 MAGNESIUM PO Take 1 tablet by mouth at bedtime. melatonin 1 MG TABS tablet Take 1 mg by mouth at bedtime. methyl salicylate-menthol (ICY HOT) ointment Apply topically every 6 hours as needed (pain) OXcarbazepine (TRILEPTAL) 150 MG tablet Take 1 tablet (150 mg) by mouth 2 times daily. 60 tablet 5 oxyCODONE (ROXICODONE) 5 MG tablet Take 0.5 tablets (2.5 mg) by mouth every 4 hours as needed for moderate to severe pain. 10 tablet 0 psyllium (METAMUCIL) 28.3 % packet Take 1 packet by mouth daily rosuvastatin (CRESTOR) 10 MG tablet Take 1 tablet (10 mg) by mouth at bedtime. 30 tablet 2 senna-docusate (SENOKOT-S/PERICOLACE) 8.6-50 MG tablet Take 2 tablets by mouth 2 times daily as needed for constipation (Patient taking differently: Take 1 tablet by mouth at bedtime.) traZODone (DESYREL) 100 MG tablet Take 100 mg by mouth at bedtime. traZODone (DESYREL) 50 MG tablet Take 2 tablets (100 mg) by mouth At Bedtime (Patient not taking: Reported on 06/08/2024) 180 tablet 3 Past Medical History Past Medical History: Diagnosis [...] Past Surgical History: Procedure Laterality Date C RADIO INTERFERENCE INVESTIGATOR PROCEDURE DATE: vag del. C RADIO INTERFERENCE INVESTIGATOR PROCEDURE DATE: 2000 tubal ligation C RADIO INTERFERENCE INVESTIGATOR PROCEDURE DATE: 1994 D&C CARDIAC SURGERY 06/2006 heart defect repair ESOPHAGOSCOPY, GASTROSCOPY, DUODENOSCOPY (EGD), COMBINED N/A 02/08/2021 Procedure: ESOPHAGOGASTRODUODENOSCOPY (EGD); Surgeon: Tuan Miller MD; Location: GI GI SURGERY 09/2020 gallbladder removed HC KNEE SCOPE,MED/LAT MENISECTOMY 08/04/13 LT HEART CATH, CLOSURE ATRIAL SEPTAL DEFECT 06/20/06 amplatzer septal occluder- serial #[id number] RADIO INTERFERENCE INVESTIGATOR (ABSTRACTED) pneumonia several times SURGICAL PATHOLOGY EXAM 02/2012 excision of lipoma on chest wall ZZC VAGINAL HYSTERECTOMY 01/30/06 Family History Problem Relation Age of Onset [...] Blood Disease No family hx of Allergies Codeine, Acetaminophen-codeine, Mold, Molds & smuts, Morphine, Pollen extract, Bupropion, and Erythromycin This note was completed in part using dictation via the [employer]uki (Vozero/Gengibre) voice recognition software. Some word and grammatical errors may occur and must be interpreted in the appropriate clinical context. If there are any questions pertaining to this issue, please contact me for further clarification. documented in this encounter Plan of Treatment Upcoming Encounters Date Type Department Care Team (Late st Contact Info) Description 07/20/2024 12:00 PM PROJECTION CAMERA OPERATOR Virtual Visit [facility] [address] [place] [address] Denise Woodson Ra, FACILITY PLANNER [facility] [address] [place] [address] 07/30/2024 8:30 AM PROJECTION CAMERA OPERATOR Virtual Visit [facility] [address] 3rd [place] [address] Randy Maradiaga, [address] [place] [address] 08/04/2024 12:00 PM PROJECTION CAMERA OPERATOR Virtual Visit [facility] Addiction [address] [place] [address] Arthur Salas, [facility] [address] [place] [address] 08/04/2024 3:30 PM PROJECTION CAMERA OPERATOR Virtual Visit [facility] [address] [place] [phone] Denise Woodson Ra, FACILITY PLANNER CONFIGURATION ENGINEER [address] [place] [address] 08/07/2024 1:00 PM PROJECTION CAMERA OPERATOR Appointment [facility] [address] [facility] [address] [place] [phone] Danna Cardenas PA-C [address] [place], [place] [phone] 08/10/2024 12:30 PM PROJECTION CAMERA OPERATOR Virtual Visit [facility] Neuropsychology [address] [phone] Robin Zepeda MD [address] [place] [address] 08/17/2024 12:30 PM PROJECTION CAMERA OPERATOR Office Visit [facility] Neuropsychology [address] [phone] Robin Zepeda MD [address] [place] [address] Tulio Ogden, PhD [address] [address] 09/04/2024 11:00 AM PROJECTION CAMERA OPERATOR Office Visit [facility] [address] [place] [phone] Denise Woodson Ra, FACILITY PLANNER CONFIGURATION ENGINEER [address] [place], [place] [phone] 09/18/2024 1:00 PM PROJECTION CAMERA OPERATOR Office Visit [facility] [address] [place] [phone] Deinse Woodson Ra, FACILITY PLANNER CONFIGURATION ENGINEER [address] [place] [address] 09/29/2024 9:00 AM PROJECTION CAMERA OPERATOR Virtual Visit [facility] Neurology [address] [phone] Randy Maradiaga, [address] [address] 10/09/2024 1:20 PM PROJECTION CAMERA OPERATOR Office [facility] [address] [facility] [address] [place] [phone] Danna Cardenas PA-C [address] [place] [address] 10/30/2024 4:00 PM PROJECTION CAMERA OPERATOR Virtual Visit [facility] Vascular [place] [address] [place] [phone] Lisa Zambrano MD [address] [place], [place] [address] 12/29/2024 12:45 PM CDT Office Visit [facility] [address] [facility] [address],[place] [phone] Fabi Coates MD [address] [facility] [address] [place] [address] 12/29/2024 1:45 PM CDT Office Visit [facility] [address] [facility] [address],[place] [phone] Fabi Coates MD [address] [facility] [address] [place] [address] 06/01/2025 11:15 AM CDT Appointment [facility] [address] [place] [phone] Robin Zepeda MD [address] [place] [address] 06/04/2025 11:00 AM CDT Office Visit [facility] Neurosurgery [facility] [address] 3rd [place] [phone] Robin Zepeda MD [address] [place] [address] Usha Simon APRN [address] [address] Scheduled Orders Name Type Priority Associated Diagnoses Orde r Schedule CTA Angiogram coronary artery Cardiac CT Routine Chest pain, unspecified type Expected: 06/26/2024 (Approximate), Expires: 06/26/2025 Scheduled Referrals Name Type Priority Associated Diagnoses Orde r Schedule Follow-Up with Cardiology Referral Routine: Next available opening Chest pain, unspecified type Tachycardia Expected: 09/26/2024 (Approximate), Expires: 06/26/2025 documented as of this encounter Goals Goal [...] Mental Health weekly - PT, OT and EXPERIMENTAL PREFLIGHT MECHANIC, continuing through [facility]: - Continue following up with PCP: 09/04/2024 - Vascular Dr. Zambrano 05/01/24 - follow up recommended in 6 months: 11/11/24 TBD #[phone]. - call independently - MTM 05/25/2024, completed - Neurosurgery Dr. Zepeda, following up with DIET ATTENDANT: 06/04/2025 11:00 AM (Arrive by 10:45 AM) [...] clinic with 24/7 after hours services available. Wheel Alignment Mechanic will remain available as needed. documented as of this encounter Procedures Procedure Name Priority Date/Time Associated Diagnosis Comments EKG 12-LEAD COMPLETE W/READ - CLINICS Routine 06/26/2024 Chest pain, unspecified type documented in this encounter Results * ZIO PATCH MAIL OUT (07/16/2024 11:43 AM CDT) Anatomical Region Laterality Modality Other Narrative 07/16/2024 11:43 AM CDT 7-day recording. Rare ectopic beats, including an 8-beat SVT run. Patient-triggered events correlated with sinus rhythm with or without single PVCs. us Danna Cardenas PA-C CV CARDIAC SERVICES ORDERABL ES Final Result * EKG 12-lead complete w/read - Clinics (performed today) (06/26/2024) Danna Cardenas PA-C ECG ORDERABLES Final Result documented in this encounter Visit Diagnoses Diagnosis Tachycardia- Primary Tachycardia, unspecified Chest pain, unspecified type Tachycardia Tachycardia, unspecified documented in this encounter Additional Health Concerns Active Problems Noted Date Diagnosed Date Increased risk of re-admission 02/18/2024 Assessment Noted Time PHQ-9 Depression Total Score: 5 03/17/20 24 9:45 AM CDT documented as of this encounter Care Teams Brood Hatchery Manager Relationship Specialty Start Date End Date Winston Villatoro OD [facility] [place] [address] [place] [address] PCP - Ophthalmology Ophthalmology 02/11/13 Denise Woodson Ra, APRN CONFIGURATION ENGINEER [address] [place] [address] PCP - General Family Practice 09/21/20 Denise Woodson Ra, APRN CONFIGURATION ENGINEER [address] [facility] [address] Assigned PCP 07/17/20 Usha Simon APRN CONFIGURATION ENGINEER [address] [facility], [place] [phone] Nurse Practitioner Neurological Surgery 01/24/24 Dangelo Salinas MD [address] [place] [address] Neurology 01/27/24 Anastasia Stearns, RN Lead Wheel Alignment Mechanic 02/06/24 Germaine Lopez, W Community Health Worker Primary Care - CC 02/18/24 Lisa Zambrano MD [address] [facility] [address] [place] [address] Assigned Heart and Vascular Provider 05/08/24 07/07/24 Raul Hoyos MD [address] [facility] [address] Assigned Neuroscience Provider 05/08/24 07/07/24 Joya Lira [facility] [address] [place] [address] Pharmacist Pharmacist 05/25/24 Joya Lira [facility] [address] [place] [address] Assigned MTM Pharmacist 06/08/24 Fabi Coates MD [address] [facility] 75 [place] [address] Genetics, Clinical 06/18/24 Robin Zepeda MD [address] [facility] [place] [address] Assigned Neuroscience Provider 07/08/24 Danna Cardenas PA-C [address] [place] [address] Assigned Heart and Vascular Provider 07/08/24 Felicita Desai, RN Lead Wheel Alignment Mechanic 07/14/24 documented as of this encounter
--- OUTSIDE RECORDS SUMMARY | 2024-07-16 13:52 | XMS_ITS | Encounter Summary ---
Author Organization [facility] Address [address] [place] [address] Care Team Providers Care Fish Bin Tender Name Role Phone Winston Villatoro Se OD Unavailable [phone] Denise Woodson Ra, APRN RADIATION TECHNICIAN Unavailable + [phone] Denise Woodson Ra, APRN RADIATION TECHNICIAN Primary Care Provid er Usha Simon APRN RADIATION TECHNICIAN Unavailable + [phone] Dangelo Salinas MD Unavailable Anastasia Stearns RN Unavailable [phone] Germaine Lopez CHW Unavailable Lisa Zambrano MD Unavailable Raul Hoyos MD Unavailable Joya Lira [facility] Unavailable [phone] Joya Lira [facility] Unavailable [phone] Fabi Coates MD Unavailable [phone] Reason for Visit * Reason Onset Date Comments *-*INCOMING RECORDS*-* 07/02/2024 Encounter Details Date Type Department Care Team (Late st Contact Info) Description 07/02/2024 PRE VISIT [facility] [address] 3rd [place] [address] Randy Maradiaga, [address] [address] *-*INCOMING RECORDS*-* Social History Tobacco Use Types [...] How often do you attend restorationist or jain serv ices? 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 04/14/24, 02/04/24 Ra[facility]24, 02/06/24 Denise Woodson Ra, TAPE EDGE MACHINE OPERATOR RADIATION TECHNICIAN [facility] 02/12/24 Robin [facility]epeda [facility] 01/31/24 Usha Simon, TAPE EDGE MACHINE OPERATOR RADIATION TECHNICIAN [facility] 01/15/24, 01/14/24 Bette Mantilla MD @[facility] 01/14/24 Roshni Molina MD @[facility] DISCHARGE SUMMARY from hospital Internal 05/14/24-05/19/24 Vlad Rehman MD @[facility] 01/22/24-Present (as of 01/24/24) Parminder Del Angel MD @[facility] 01/19/24-01/22/24 Jeevan Sheth MD @[facility] DISCHARGE REPORT from the ER Internal 05/10/24-05/11/24 Felicita Rae MD @[facility] ED 02/04/24 Peter Gonzalez DO @[facility] ED EEG Internal [facility] 01/19/24 EEG Videl 2-12 Hrs Unmonitored MEDICATION LIST Internal IMAGING (FOR ALL VISITS) IR Internal [facility] 01/09/24 IR Angio Carotid Bilat MRI (HEAD, NECK, SPINE) Internal [facility] 05/15/24 MR Brain 05/15/24 MRA Brain (COW) 05/15/24 MRA Neck (Carotid) 05/10/24 MR Brain 02/13/24 MR Brain 02/04/24 MR Brain 01/20/24 MRA Neck (Caroitd) 01/20/24 MR Brain 01/20/24 MRA Brain (COW) [place] 09/28/22 MR Cervical Spine 09/28/[address] (HEAD, NECK, SPINE) Internal [facility] 05/10/24 CTA Head Neck 05/10/24 CT Head 02/13/24 CTA Head Neck 02/13/24 CT Head 02/04/[address] Head 02/04/24 CTA Head Neck 01/19/24 CT Head [place] 01/09/24 CTA Head & Neck Carotid [place] 09/27/22 CTA Head Neck 09/25/22 CT Head documented in this encounter Plan of Treatment Upcoming Encounters Date Type Department Care Team (Late st Contact Info) Description 07/20/2024 12:00 PM TOPPER PRESS OPERATOR AUTOMATIC [facility] [address] [place] [phone] Denise Woodson Ra, TAPE EDGE MACHINE OPERATOR RADIATION TECHNICIAN [address] [place] [address] 07/30/2024 8:30 AM TOPPER PRESS OPERATOR AUTOMATIC Virtual Visit [facility] [address] [place] [phone] Randy Maradiaga, [address] [address] 08/04/2024 12:00 PM TOPPER PRESS OPERATOR AUTOMATIC Virtual Visit [facility] [address] [place] [address] Arthur Salas, [address] [address] 08/04/2024 3:30 PM TOPPER PRESS OPERATOR AUTOMATIC [facility] [address] [place] [phone] Denise Woodson Ra, TAPE EDGE MACHINE OPERATOR RADIATION TECHNICIAN [address] [facility] [place] [address] 08/07/2024 1:00 PM TOPPER PRESS OPERATOR AUTOMATIC Appointment [facility] [address] [facility] [address] [place] [phone] Danna Cardenas PA-C [address]405 [place] [address] 08/10/2024 12:30 PM TOPPER PRESS OPERATOR AUTOMATIC Virtual Visit [facility] Neuropsychology [address] [phone] Robin Zepeda MD [address] [place] [address] 08/17/2024 12:30 PM TOPPER PRESS OPERATOR AUTOMATIC Office Visit [facility] Neuropsychology [address] [phone] Robin Zepeda MD [address] [place] [address] 988[address] Tulio Ogden, PhD [address] [address] 09/04/2024 11:00 AM TOPPER PRESS OPERATOR AUTOMATIC Office Visit [facility] [place] [address] [place] [phone] Denise Woodson Ra, TAPE EDGE MACHINE OPERATOR RADIATION TECHNICIAN [address] [place], [place] [phone] 09/18/2024 1:00 PM TOPPER PRESS OPERATOR AUTOMATIC [facility] [address] [place] [phone] Denise Woodson Ra, TAPE EDGE MACHINE OPERATOR RADIATION TECHNICIAN [address] [place] [address] 09/29/2024 9:00 AM TOPPER PRESS OPERATOR AUTOMATIC Virtual Visit [facility] [address] 3rd [place] [phone] Randy Maradiaga, [address] 9[address] 10/09/2024 1:20 PM TOPPER PRESS OPERATOR AUTOMATIC Office [facility] [address] [facility] [address] [place] [phone] Danna Cardenas PA-C [address] [place], [place] [address] 10/30/2024 4:00 PM TOPPER PRESS OPERATOR AUTOMATIC Virtual Visit [facility] [place] [address] [place] [phone] Lisa Zambrano MD [address] [place], [place] [address] 12/29/2024 12:45 PM CDT Office Visit [facility] [address] [place], [place] [address]e Explorer [address] [phone] Fabi Coates MD [address] [place] [address] 12/29/2024 1:45 PM CDT Office Visit [facility] [address] [place], [place] [address] Explorer [address] [phone] Fabi Coates MD [address] [place] [address] 06/01/2025 11:15 AM CDT Appointment [facility] Imaging [address] [place] [phone] Robin Zepeda MD [address] [place] [address]28295 06/04/2025 11:00 AM CDT Office Visit [facility] [address] 3rd [place] [phone] Robin Zepeda MD [address] [place] [address] [phone] Usha Simon APRN RADIATION TECHNICIAN [address] [place] [address] 247685 documented as of this encounter Goals Goal [...] Health weekly - PT, OT and ELECTRIC LOCOMOTIVE FIRER/FIREMAN, continuing through [facility] [place]: - Continue following up with PCP: 09/04/2024 - Vascular Dr. Zambrano 05/01/24 - follow up recommended in 6 months: 11/11/24 TBD #[phone]. - call independently - MTM 05/25/2024, completed - Neurosurgery Dr. Zepeda, following up with MEN'S SWIM COACH: 06/04/2025 11:00 AM (Arrive by 10:45 AM) [...] clinic with 24/7 after hours services available. Research And Development Specialist will remain available as needed. documented as of this encounter Visit Diagnoses Not on filedocumented in this encounter Additional Health Concerns Active Problems Noted Date Diagnosed Date Increased risk of re-admission 02/18/2024 Assessment Noted Time PHQ-9 Depression Total Score: 5 03/17/20 24 9:45 AM CDT documented as of this encounter Care Teams Fish Bin Tender Relationship Specialty Start Date End Date Winston Villatoro OD [facility] [address] [facility] [address] [place], [place] [phone] PCP - Ophthalmology Ophthalmology 02/11/13 Denise Woodson Ra, APRN RADIATION TECHNICIAN [address] [place] [address] PCP - General Family Practice 09/21/20 Denise Woodson Ra, APRN RADIATION TECHNICIAN [address] [facility] [address] Assigned PCP 07/17/20 Usha Simon APRN RADIATION TECHNICIAN [address] [facility] [id number] [place] [address] Nurse Practitioner Neurological Surgery 01/24/24 Dangelo Salinas MD [address] [place] [address] Neurology 01/27/24 Anastasia Stearns, RN Lead Research And Development Specialist 02/06/24 Germaine Lopez, [facility] Community Health Worker Primary Care - CC 02/18/24 Lisa Zambrano MD [address] [place] [address] Assigned Heart and Vascular Provider 05/08/24 07/07/24 Raul Hoyos MD [address] [facility] [place], [place] [address] Assigned Neuroscience Provider 05/08/24 07/07/24 Joya Lira RPH [address] [place], [place] [phone] Pharmacist Pharmacist 05/25/24 Joya Lira [facility] [address] [place], [place] [phone] Assigned MTM Pharmacist 06/08/24 Fabi Coates MD [address] [facility] [place], [place] 5[address] Genetics, Clinical 06/18/24 documented as of this encounter
--- OUTSIDE RECORDS SUMMARY | 2024-07-16 13:52 | XMS_ITS | Encounter Summary ---
Author Organization [facility] Address [address] [place] [address] Care Team Providers Care Floor Grinder Name Role Phone Winston Villatoro OD Unavailable [phone] Denise Woodson Ra, APRN FIRE LOOKOUT Unavailable + [phone] Denise Woodson Ra, APRN FIRE LOOKOUT Primary Care Provid er Usha Simon APRN FIRE LOOKOUT Unavailable Dangelo Salinas MD Unavailable Anastasia Stearns RN Unavailable Germaine Lopez CHW Unavailable [phone] Lisa Zambrano MD Unavailable [phone] Raul Hoyos MD Unavailable Joya Lira [facility] Unavailable [phone] Joya Lira [facility] Unavailable [phone] Fabi Coates MD Unavailable [phone] Encounter Details Date Type Department Care Team (Latest Contact Info) Description 06/26/2024 Travel Social History Tobacco Use Types Packs/Day [...] How often do you attend sikh or adventist serv ices? 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 Not on file Not on file Not on file Not on file Not on file Not on file documented as of this encounter Plan of Treatment Upcoming Encounters Date Type Department Care Team (Late st Contact Info) Description 07/20/2024 12:00 PM ACTIVITIES LEADER Virtual Visit [facility] [address] [place] [address] Denise Woodson Ra, MANUFACTURING QUALITY INSPECTOR FIRE LOOKOUT [address] [place], [place] [phone] 07/30/2024 8:30 AM ACTIVITIES LEADER Virtual Visit [facility] [address] [place] [address] Randy Maradiaga, [address] [address] 08/04/2024 12:00 PM ACTIVITIES LEADER Virtual Visit [facility] [place] [address] [place] [address] ChristophsamanthaArthur villafana, [facility] [address] [place] [address] 08/04/2024 3:30 PM ACTIVITIES LEADER [facility] [address] [place] [phone] Denise Woodson Ra, MANUFACTURING QUALITY INSPECTOR FIRE LOOKOUT [address] [place], [place] [phone] 08/07/2024 1:00 PM ACTIVITIES LEADER Appointment [facility] [address] [facility] [address] [place] [phone] Danna Cardenas PA-C 6405 [place], [place] 932015 08/10/2024 12:30 PM ACTIVITIES LEADER Virtual Visit [facility] Neuropsychology [address] [phone] Robin Zepeda MD [address] [place] [address] 08/17/2024 12:30 PM ACTIVITIES LEADER Office Visit [facility] Neuropsychology [address] [phone] Robin Zeepda MD [address] [place] [address] 333425 Tulio Ogden, PhD [address] [address] 09/04/2024 11:00 AM ACTIVITIES LEADER Office Visit [facility] [address] [place] [phone] Denise Woodson Ra, MANUFACTURING QUALITY INSPECTOR FIRE LOOKOUT [address] [place], [place] [phone] 09/18/2024 1:00 PM ACTIVITIES LEADER Office Visit [facility] [address] [place] [phone] Denise Woodson Ra, MANUFACTURING QUALITY INSPECTOR FIRE LOOKOUT [address] [place], [place] [phone] 09/29/2024 9:00 AM ACTIVITIES LEADER Virtual Visit [facility] [address] [phone] Randy Maradiaga, [address] [address] 10/09/2024 1:20 PM ACTIVITIES LEADER Office Visit [facility] [place] [address] [place] 2[address]100 [place] [phone] Danna Cardenas PA-C 6405 [place] [address] 10/30/2024 4:00 PM ACTIVITIES LEADER Virtual Visit [facility] [address] [place] [phone] Lisa Zambrano MD [address] [place] [address] 12/29/2024 12:45 PM CDT Office Visit [facility] Explorer [address] [phone] Fabi Coates MD [address] [address] 12/29/2024 1:45 PM CDT Office Visit [facility] [address] [facility] [address] [phone] Fabi Coates MD [address] [address] 06/01/2025 11:15 AM CDT Appointment [facility] Imaging [address] [place] [phone] Robin Zepeda MD [address] [place] [address] 06/04/2025 11:00 AM CDT Office Visit [facility] [address] [place] [phone] Robin Zepeda MD [address] [place] [address] Usha Simon APRN [address] [address] documented as of this encounter Goals Goal [...] Health weekly - PT, OT and SENIOR TECHNICAL SUPPORT ENGINEER, continuing through [facility] [place]: - Continue following up with PCP: 09/04/2024 - Vascular Dr. Zambrano 05/01/24 - follow up recommended in 6 months: 11/11/24 D #[phone]. - call independently - MTM 05/25/2024, completed - Neurosurgery Dr. Zepeda, following up with IMPROVEMENT ADVISOR: 06/04/2025 11:00 AM (Arrive by 10:45 [...] clinic with 24/ after hours services available. Char Belt Operator will remain available as needed. documented as of this encounter Visit Diagnoses Not on filedocumented in this encounter Additional Health Concerns Active Problems Noted Date Diagnosed Date Increased risk of re-admission 02/18/2024 Assessment Noted Time PHQ-9 Depression Total Score: 5 03/17/20 24 9:45 AM CDT documented as of this encounter Care Teams Floor Grinder Relationship Specialty Start Date End Date Winston Villatoro, AMELIE [facility] [address] [facility] [address] [place] [address] PCP - Ophthalmology Ophthalmology 02/11/13 Denise Woodson Ra, APRN FIRE LOOKOUT [address] [place] [address] PCP - General Family Practice 09/21/20 Denise Woodson Ra, APRN FIRE LOOKOUT [address] [place] [address] Assigned PCP 07/17/20 Usha Simon APRN FIRE LOOKOUT [address] 222[address] Nurse Practitioner Neurological Surgery 01/24/24 Dangelo Salinas MD [address] [place], [place] [phone] Neurology 01/27/24 Anastasia Stearns, RN Lead Char Belt Operator 02/06/24 Germaine Lopez, W Community Health Worker Primary Care - CC 02/18/24 Lisa Zambrano MD [address] [facility] [address] [place], [place] [address]685 Assigned Heart and Vascular Provider 05/08/24 07/07/24 Raul Hoyos MD [address] [place] [address] Assigned Neuroscience Provider 05/08/24 07/07/24 Joya Lira RPH [address] [place] [address] Pharmacist Pharmacist 05/25/24 Joya Lira RPH [address] [place] [address] Assigned MTM Pharmacist 06/08/24 Fabi Coates MD [facility] [place] [facility] [address] [place] [address] Genetics, Clinical 06/18/24 documented as of this encounter
--- OUTSIDE RECORDS SUMMARY | 2024-07-16 13:52 | XMS_ITS | Encounter Summary ---
Author Organization [place] Address [address] [place] [address] Care Team Providers Care Machine Folder Name Role Phone Winston Villatoro OD Unavailable [phone] Denise Woodson Ra, APRN MEDICAL INSURANCE BILLER Unavailable Denise Woodson Ra, APRN MEDICAL INSURANCE BILLER Primary Care Provid er Usha Simon APRN MEDICAL INSURANCE BILLER Unavailable [phone] Dangelo Salinas MD Unavailable Anastasia Stearns RN Unavailable Geramine Lopez CHW Unavailable [phone] Kory Zambrano MD Unavailable [phone] Raul Hoyos MD Unavailable Joya Lira [facility] Unavailable Joya Lira [facility] Unavailable [phone] Fabi Coates MD Unavailable [phone] Encounter Details Date Type Department Care Team (Late st Contact Info) Description 06/29/2024 [facility] [place] [address] [place] [phone] Kory Zambrano MD [address] [place] [address] Social History Tobacco Use Types Packs/Day Years [...] How often do you attend temple or gnosticist serv ices? Never 02/28/2024 Do [...] Date Recorded PHQ-2 Score 2 05/05/2024 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 CHELSEY Reyes, RN, CV-BC, CNOR [facility] * Telephone Encounter - Ania Ruiz - 06/29/2024 11:01 AM CDT [facility] Who is the name of the provider?: KORY ZAMBRANO What is the location you see this provider at/preferred location?: [place] Person calling / Facility: [facility] Phone number: [phone] (home) Nurse call back needed: Yes or route to scheduling Reason for call: Patient called to schedule, volunteered she is having some difficulty with scheduling tasks as she has had a stroke. Per patient, she was to schedule a 6 month virtual follow up with Dr Zambrano. Patient is scheduled for 10/30/24 video appt. Please advise scheduling if changes to appt are needed/addition of imaging. Pharmacy location: n/a Outside Imaging: n/a Can we leave a detailed message on this number? YES 06/29/2024, 11:01 AM documented in this encounter Plan of Treatment Upcoming Encounters Date Type Department Care Team (Late st Contact Info) Description 07/20/2024 12:00 PM SILVICULTURE FORESTER Virtual Visit [facility] [address] [place] [phone] Denise Woodson Ra, CAPACITY MANAGER MEDICAL INSURANCE BILLER [address] [place], [place] [phone] 07/30/2024 8:30 AM SILVICULTURE FORESTER Virtual Visit [facility] Neurology Clinic [address] 3rd [place] [phone] Randy Maradiaga, [address] [address] 08/04/2024 12:00 PM SILVICULTURE FORESTER Virtual Visit [facility] Mental Health and Addiction Clinic [address] [place] [address] Arthur Salas, MASTIC MAN [address] [place] [address] 08/04/2024 3:30 PM SILVICULTURE FORESTER Virtual Visit [facility] [address] [place] [phone] Denise Woodson Ra, CAPACITY MANAGER MEDICAL INSURANCE BILLER [address] [place], [place] [phone] 08/07/2024 1:00 PM SILVICULTURE FORESTER Appointment [facility] Heart Care [address] [facility] [address] [place] [phone] Danna Cardenas PA-C [address] [place], [place] [address] 08/10/2024 12:30 PM SILVICULTURE FORESTER Virtual Visit [facility] Neuropsychology [address] [phone] Robin Zepeda MD [address] [place] [address] 08/17/2024 12:30 PM SILVICULTURE FORESTER Office Visit [facility] Neuropsychology [address] [phone] Robin Zepeda MD [address] [place] [address] Tulio Ogden, PhD [address] [address] 09/04/2024 11:00 AM SILVICULTURE FORESTER Office Visit [facility] [address] [place] [phone] Denise Woodson Ra, CAPACITY MANAGER MEDICAL INSURANCE BILLER [address] [place] [address] 09/18/2024 1:00 PM SILVICULTURE FORESTER Office Visit [facility] [address] [place] [phone] Denise Woodson Ra, CAPACITY MANAGER MEDICAL INSURANCE BILLER [address] [place] [address] 09/29/2024 9:00 AM SILVICULTURE FORESTER Virtual Visit [facility] Neurology [address] 3rd [place] [phone] Randy Maradiaga, [address] [address] 10/09/2024 1:20 PM SILVICULTURE FORESTER Office Visit [facility] Heart [facility] [address] [facility] [address] [place] [phone] Danna Cardenas PA-C [address] [place] [address] 10/30/2024 4:00 PM SILVICULTURE FORESTER Virtual Visit [facility] Vascular [facility] [address] [place] [phone] Kory Zambrano MD [address] [place] [address] 12/29/2024 12:45 PM CDT Office Visit [facility] [address] [facility] [address],[place] [phone] Fabi Coates MD [address] [facility] 75 [place], [place] [address] 12/29/2024 1:45 PM CDT Office Visit [facility] [address] [facility] Explorer [facility] 12th Flr,[place] [phone] Fabi Coates MD [address] [facility] [address] [place] [address] 06/01/2025 11:15 AM CDT Appointment [facility] Imaging [address] [place] [address] [place] [phone] Robin Zepeda MD [address] [place] [address] 06/04/2025 11:00 AM CDT Office Visit [facility] Neurosurgery [facility] [address] [place] [address] 3rd [place] [phone] Robin Zepeda MD [address] [place] [phone] Usha Simon APRN [address] [address] documented as of this encounter Goals Goal [...] Mental Health weekly - PT, OT and SALES PROMOTION OFFICER, continuing through [facility] [place]: - Continue following up with PCP: 09/04/2024 - Vascular Dr. Zambrano 05/01/24 - follow up recommended in 6 months: 11/11/24 D #[phone]. - call independently - MTM 05/25/2024, completed - Neurosurgery Dr. Zepeda, following up with ETHICS OFFICER: 06/04/2025 11:00 AM (Arrive by 10:45 AM) [...] clinic with / after hours services available. Automatic Furnace Operator will remain available as needed. documented as of this encounter Visit Diagnoses Not on filedocumented in this encounter Additional Health Concerns Active Problems Noted Date Diagnosed Date Increased risk of re-admission 02/18/2024 Assessment Noted Time PHQ-9 Depression Total Score: 5 03/17/20 24 9:45 AM CDT documented as of this encounter Care Teams Machine Folder Relationship Specialty Start Date End Date Winston Villatoro OD [facility] [address] [facility] [address] [place] [address] PCP - Ophthalmology Ophthalmology 02/11/13 Denise Woodson Ra, APRN MEDICAL INSURANCE BILLER [address] [place] [address] PCP - General Family Practice 09/21/20 Denise Woodson Ra, APRN CNP [address] [place] [address] Assigned PCP 07/17/20 Usha Simon APRN CNP [address] [facility], [place] [address] Nurse Practitioner Neurological Surgery 01/24/24 Dangelo Salinas MD [address] [place] [address] Neurology 01/27/24 Anastasia Stearns, RN Lead Automatic Furnace Operator 02/06/24 Germaine Lopez, [facility] Community Health Worker Primary Care - CC 02/18/24 Kory Zambrano MD [address] [facility] [address] [place] [address] Assigned Heart and Vascular Provider 05/08/24 07/07/24 Raul Hoyos MD [address] [facility] [id number] [place] [address] Assigned Neuroscience Provider 05/08/24 07/07/24 Joya Lira RPH [address] [address] Pharmacist Pharmacist 05/25/24 Joya Lira RPH [address] [place] [address] Assigned MTM Pharmacist 06/08/24 Fabi Coates MD [address] [facility] 75 [place], [place] [address] Genetics, Clinical 06/18/24 documented as of this encounter
--- OUTSIDE RECORDS SUMMARY | 2024-07-16 13:53 | XMS_ITS | Encounter Summary ---
Author Organization [place] Address [address] [place] [address]. [place] [address] Care Team Providers Care Process Supervisor Name Role Phone Winston Villatoro Se OD Unavailable [phone] Denise Woodson Ra, APRN VARNISHING MACHINE OPERATOR Unavailable [phone] Denise Woodson Ra, APRN VARNISHING MACHINE OPERATOR Primary Care Provid er Usha Simon APRN VARNISHING MACHINE OPERATOR Unavailable Dangelo Salinas MD Unavailable Anastasia Stearns RN Unavailable Germaine Lopez CHW Unavailable Lisa Zambrano MD Unavailable [phone] Raul Hoyos MD Unavailable Joya Lira [facility] Unavailable [phone] Reason for Visit * Reason Onset Date Comments Appointment 06/04/2024 Genetics referra l Encounter Details Date Type Department Care Team (Late st Contact Info) Description 06/04/2024 [facility]ty [facility] [address] [facility] [address] Fl[address],[place] [address] Unknown, Provider Appointment (Genetics referral) Social History Tobacco Use Types Packs/Day Years [...] How often do you attend gnosticism or denominational serv ices? 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 Vincent, Dr. Coates, Dr. Bradley, Dr. Marie, or Dr. Wang, with GC visit prior. When patient calls back, pleaseassist in scheduling IN PERSON appointment. Please advise patient to complete intake form via [employer] [place], as well as have outside records/previousgenetic test reports sent prior to appointment date. Thank you. documented in this encounter Plan of Treatment Upcoming Encounters Date Type Department Care Team (Late st Contact Info) Description 07/20/2024 12:00 PM FRINGE MAKER Virtual Visit [facility] [address] [place] [phone] Denise Woodson Ra, WASHERY ENGINEER VARNISHING MACHINE OPERATOR [address] [place] [address] 07/30/2024 8:30 AM FRINGE MAKER Virtual Visit [facility] Neurology [address] [phone] Randy Maradiaga, [address] [place] [address] 08/04/2024 12:00 PM FRINGE MAKER Virtual Visit [facility] Mental Health and Addiction Clinic [address] [place] [address] Arthur Salas, [address] [place] [address] 08/04/2024 3:30 PM FRINGE MAKER Virtual Visit [facility] [address] [place] [phone] Denise Woodson Ra, WASHERY ENGINEER VARNISHING MACHINE OPERATOR [address] [place] [address] 08/07/2024 1:00 PM FRINGE MAKER Appointment [facility] Heart Care [address] [facility] [address] [place] [phone] Danna Cardenas PA-C 6405 [place] [address] 08/10/2024 12:30 PM FRINGE MAKER Virtual Visit [facility] Neuropsychology [place] [address] [phone] Robin Zepeda MD [address] [place], [place] [address] [place] [address] 08/17/2024 12:30 PM FRINGE MAKER Office Visit [facility] Neuropsychology [address] [phone] Robin Zepeda MD [address] [place] [address] Tulio Ogden, PhD [address] [address] 09/04/2024 11:00 AM FRINGE MAKER Office Visit [address] [phone] Denise Woodson Ra, WASHERY ENGINEER VARNISHING MACHINE OPERATOR [address] [place] [address] 09/18/2024 1:00 PM FRINGE MAKER Office Visit [address] [phone] Denise Woodson Ra, WASHERY ENGINEER VARNISHING MACHINE OPERATOR [address] [place] [address] 09/29/2024 9:00 AM FRINGE MAKER Virtual Visit [facility] Neurology [address] [phone] Randy Maradiaga DO [address] [place] [address] 10/09/2024 1:20 PM FRINGE MAKER Office Visit [facility] Heart [address] [phone] Danna Cardenas PA-C 6[address] [facility] [place] [address] 10/30/2024 4:00 PM FRINGE MAKER Virtual Visit [facility] Vascular Clinic [place] [address] [place] [phone] Lisa Zambrano MD [address] [place] [address] 12/29/2024 12:45 PM CDT Office Visit [facility] [address] [place] [address] [phone] Fabi Coates MD [address] [place] [address] 12/29/2024 1:45 PM CDT Office Visit [facility] [place] [facility] Pediatric Specialty Clinic [address] [place] [phone] Fabi Coates MD [address] [place] [address] 06/01/2025 11:15 AM CDT Appointment [facility] Imaging [address] [facility] [address] [place] [phone] Robin Zepeda MD [address] [place] [address] [id number] [place] [address] 06/04/2025 11:00 AM CDT Office Visit [facility] Neurosurgery [address] 3rd [place] [phone] Robin Zepeda MD [address] [id number] [address] Usha Simon APRN VARNISHING MACHINE OPERATOR [address] [id number] [address] documented as of this encounter Goals Goal [...] Mental Health weekly - PT, OT and PROFESSIONAL SKATER, continuing through [facility] [place]: - Continue following up with PCP: 09/04/2024 - Vascular Dr. Zambrano 05/01/24 - follow up recommended in 6 months: 11/11/24 TBD #[phone]. - call independently - MTM 05/25/2024, completed - Neurosurgery Dr. Zepeda, following up with BONING ROOM WORKER: 06/04/2025 11:00 AM (Arrive by 10:45 AM) Usha Simon APRN VARNISHING MACHINE OPERATOR 2. I will take my medications as prescribed. 3. I will discuss, review, schedule and complete recommended overdue health maintenance with my Primary Care Provider. 4. I will contact my care team with questions, concerns, support needs. I will use the clinic as a resource and I understand I can contact my clinic with 24/7 after hours services available. Parts Clerk Plant Maintenance will remain available as needed. documented as of this encounter Visit Diagnoses Not on filedocumented in this encounter Additional Health Concerns Active Problems Noted Date Diagnosed Date Increased risk of re-admission 02/18/2024 Assessment Noted Time PHQ-9 Depression Total Score: 5 07/02/20 24 9:45 AM CDT documented as of this encounter Care Teams Process Supervisor Relationship Specialty Start Date End Date Winston Villatoro OD [facility] [place] [address] [place] [address] PCP - Ophthalmology Ophthalmology 02/11/13 Denise Woodson Ra, APRN VARNISHING MACHINE OPERATOR [address] [place] [address] PCP - General Family Practice 09/21/20 Denise Woodson Ra, APRN VARNISHING MACHINE OPERATOR [address] [place] [address] Assigned PCP 07/17/20 Usha Simon APRN VARNISHING MACHINE OPERATOR [address] [address] Nurse Practitioner Neurological Surgery 01/24/24 Dangelo Salinas MD [address] [place], [place] [id number] Neurology 01/27/24 Anastasia Stearns, RN Lead Parts Clerk Plant Maintenance 02/06/24 Germaine Lopez, W Community Health Worker Primary Care - CC 02/18/24 Lisa Zambrano MD [address] [place] [address] Assigned Heart and Vascular Provider 05/08/24 07/07/24 Raul Hoyos MD [address] [place] [address] Assigned Neuroscience Provider 05/08/24 07/07/24 Joya Lira RPH [address] [place] [address] Pharmacist Pharmacist 05/25/24 documented as of this encounter
--- OUTSIDE RECORDS SUMMARY | 2024-07-16 13:53 | XMS_ITS | Encounter Summary ---
Author Organization [place] Address [address] [place] [address] Care Team Providers Care Product Applications Scientist Name Role Phone Winston Villatoro Se OD Unavailable [phone] Denise Woodson Ra, APRN CIVIL ENGINEER HELPER Unavailable + [phone] Denise Woodson Ra, APRN CIVIL ENGINEER HELPER Primary Care Provid er Usha Simon APRN CIVIL ENGINEER HELPER Unavailable Dangelo Salinas MD Unavailable Anastasia Stearns RN Unavailable [phone] Germaine Lopez CHW Unavailable [phone] Lisa Zambrano MD Unavailable [phone] Raul Hoyos MD Unavailable [phone] Joya Lira [facility] Unavailable [phone] Reason for Visit * Reason Onset Date Comments *-*INCOMING RECORDS*-* 06/02/2024 Encounter Details Date Type Department Care Team (Late st Contact Info) Description 06/02/2024 PRE VISIT [facility] Neurosurgery Clinic [address] 3rd [place] [address] Robin Zepeda MD [address] [place] [address] [id number] [place] [address] *-*INCOMING RECORDS*-* Social History Tobacco Use Types [...] How often do you attend yazdanism or bahai serv ices? 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 Not on file Not on file Not on file Not on file Not on file Not on file documented as of this encounter Miscellaneous Notes * Telephone Encounter - Sheyla Toth - 05/20/2024 11:25 AM CDT RECORDS RECEIVED FROM: Care Everywhere REASON FOR VISIT: 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 Z87.898 (ICD-10-CM) - History of seizure Z86.73 (ICD-10-CM) - History of stroke M79.601 (ICD-10-CM) - Pain of right upper extremity PROVIDER: Robin Zepeda MD DATE OF APPT: 06/02/24 @ 2:40 pm NOTES (FOR ALL VISITS) STATUS DETAILS OFFICE NOTE from referring provider Internal Hosp Referral OFFICE NOTE from other specialist Care Everywhere 05/05/24 Rohit Barcenas MD @[facility] 04/14/24, 02/04/24 Raul Hoyos MD @[facility] 03/17/24, 02/06/24 Denise Woodson Ra, SERVICE ASSISTANT CIVIL ENGINEER HELPER [facility] 02/12/24 [facility] 01/31/24 Usha Simon, [place] CIVIL ENGINEER HELPER [facility] 01/15/24, 01/14/24 Bette Mantilla MD @[facility] 01/14/24 Roshni Molina MD @[facility] DISCHARGE SUMMARY from hospital Internal 05/14/24-05/19/24 Vlad Rehman MD @[facility] 01/22/24-Present (as of 01/24/24) Parminder Del Angel MD @[facility] 01/19/24-01/22/24 Jeevan Sheth MD @[facility] DISCHARGE REPORT from the ER Internal 05/10/24-05/11/24 Felicita Rae MD @[facility] ED 02/04/24 Peter Gonzalez DO @[facility] ED EEG Internal [facility] 01/19/24 EEG Videl 2-12 Hrs Unmonitored MEDICATION LIST Internal IMAGING (FOR ALL VISITS) IR Internal [facility] 01/09/24 IR Angio Carotid Bilat MRI (HEAD, NECK, SPINE) Internal [facility] 05/15/24 MR Brain 05/15/24 MRA Brain (COW) 05/15/24 MRA Neck (Carotid) 05/10/24 MR Brain 02/13/24 MR Brain 02/04/24 MR Brain 01/20/24 MRA Neck (Caroitd) 01/20/24 MR Brain 01/20/24 MRA Brain (COW) [facility] 09/28/22 MR Cervical Spine 09/28/23 MR Brain [...] st Contact Info) Description 07/20/2024 12:00 PM FILM PROJECTOR OPERATOR Virtual Visit [facility] [address] [place] [phone] Denise Woodson Ra, SERVICE ASSISTANT CIVIL ENGINEER HELPER [address] [place], [place] [address] 07/30/2024 8:30 AM FILM PROJECTOR OPERATOR Virtual Visit [facility] Neurology [address] 3rd [place] [phone] Randy Maradiaga, [address] [address] 08/04/2024 12:00 PM FILM PROJECTOR OPERATOR Virtual Visit [facility] Mental Health and Addiction [address] [place] [address] [address] 08/04/2024 3:30 PM FILM PROJECTOR OPERATOR Virtual Visit [facility] [address] [place] [phone] Denise Woodson Ra, SERVICE ASSISTANT CIVIL ENGINEER HELPER [address] [place], [place] [phone] 08/07/2024 1:00 PM FILM PROJECTOR OPERATOR Appointment [facility] [address] [facility] [address] [place] [phone] Danna Cardenas PA-C [address] [place] [address] 08/10/2024 12:30 PM FILM PROJECTOR OPERATOR Virtual Visit [facility] Neuropsychology [address] [phone] Robin Zepeda MD [address] [place] [address] 08/17/2024 12:30 PM FILM PROJECTOR OPERATOR Office Visit [facility] Neuropsychology [address] [phone] Robin Zepeda MD [address] [place] [address] Tulio Ogden, PhD [address] [address] 09/04/2024 11:00 AM FILM PROJECTOR OPERATOR [facility] [address] [place] [phone] Denise Woodson Ra, SERVICE ASSISTANT CIVIL ENGINEER HELPER [address] [place] [address] 09/18/2024 1:00 PM FILM PROJECTOR OPERATOR [facility] [address] [place] [phone] Denise Woodson Ra, SERVICE ASSISTANT CIVIL ENGINEER HELPER [address] [place] [address] 09/29/2024 9:00 AM FILM PROJECTOR OPERATOR Virtual Visit [facility] Neurology [place] [address] [facility] 3rd [place] [phone] Randy Maradiaga, [address] [address] 10/09/2024 1:20 PM FILM PROJECTOR OPERATOR Office Visit [facility] Heart [facility] [address] [facility] [address] [place] [phone] Danna Cardenas PA-C [address] [facility] [employer] [place], [place] [address] 10/30/2024 4:00 PM FILM PROJECTOR OPERATOR Virtual Visit [facility] Vascular Clinic [place] [address] [place] [phone] Lisa Zambrano MD [address] [place], [place] [address] 12/29/2024 12:45 PM CDT Office Visit [facility] [address] [place], [place] [address]e Explorer [address] [phone] Fabi Coates MD [address] [place] [address] 12/29/2024 1:45 PM CDT Office Visit [facility] Pediatric Specialty Clinic [address] [place] [phone] Fabi Coates MD [address] [place] [address] 06/01/2025 11:15 AM CDT Appointment [facility] Care Center Imaging [address] [facility] [address] [place] [phone] Robin Zepeda MD [address] [place] [address] 06/04/2025 11:00 AM CDT Office Visit [facility] Neurosurgery Clinic [address] 3rd [place] [phone] Robin Zepeda MD [address] [place] [address] Usha Simon APRN CIVIL ENGINEER HELPER [address] [place] [address] 520535 documented as of this encounter Goals Goal [...] Health weekly - PT, OT and SENIOR GL ACCOUNTANT, continuing through [facility] [place]: - Continue following up with PCP: 09/04/2024 - Vascular Dr. Zambrano 05/01/24 - follow up recommended in 6 months: 11/11/24 TBD #[phone]. - call independently - MTM 05/25/2024, completed - Neurosurgery Dr. Zepeda, following up with NUCLEAR FUEL ENRICHMENT TECHNICIAN: 06/04/2025 11:00 AM (Arrive by 10:45 AM) Usha Simon APRN CIVIL ENGINEER HELPER 2. I will take my medications as prescribed. 3. I will discuss, review, schedule and complete recommended overdue health maintenance with my Primary Care Provider. 4. I will contact my care team with questions, concerns, support needs. I will use the clinic as a resource and I understand I can contact my clinic with 24/7 after hours services available. Delivery Rep will remain available as needed. documented as of this encounter Visit Diagnoses Not on filedocumented in this encounter Additional Health Concerns Active Problems Noted Date Diagnosed Date Increased risk of re-admission 02/18/2024 Assessment Noted Time PHQ-9 Depression Total Score: 5 03/17/20 24 9:45 AM CDT documented as of this encounter Care Teams Product Applications Scientist Relationship Specialty Start Date End Date ShaunaWinston moralez OD [facility] [address] [facility] [address] [place] [address] PCP - Ophthalmology Ophthalmology 02/11/13 Denise Woodson Ra, APRN CIVIL ENGINEER HELPER [address] [place] [address] PCP - General Family Practice 09/21/20 Denise Woodson Ra, APRN CIVIL ENGINEER HELPER [address] [facility] [place] [address] Assigned PCP 07/17/20 Usha Simon APRN CIVIL ENGINEER HELPER [address] [facility], [place] [address] Nurse Practitioner Neurological Surgery 01/24/24 Dangelo Salinas MD [address] [id number] Neurology 01/27/24 Anastasia Stearns, RN Lead Delivery Rep 02/06/24 Germaine Lopez, W Community Health Worker Primary Care - CC 02/18/24 Lisa Zambrano MD [address] [facility] [address] [place] [address] Assigned Heart and Vascular Provider 05/08/24 07/07/24 Raul Hoyos MD [address] [facility]121[place], [place] [address] Assigned Neuroscience Provider 05/08/24 07/07/24 Joya Lira RPH [address] [place] [address] Pharmacist Pharmacist 05/25/24 documented as of this encounter
--- OUTSIDE RECORDS SUMMARY | 2024-07-16 13:53 | XMS_ITS | Encounter Summary ---
Author Organization [facility] Address [address] [place] [address] Care Team Providers Care Scientific Associate Name Role Phone Winston Villatoro OD Unavailable [phone] Denise Woodson Ra, APRN DAIRY CHEMIST Unavailable + [phone] Denise Woodson Ra, APRN DAIRY CHEMIST Primary Care Provid er Usha Simon APRN DAIRY CHEMIST Unavailable +- [phone] Dangelo Salinas MD Unavailable Anastasia Stearns RN Unavailable [phone] Germaine Lopez CHW Unavailable [phone] Lisa Zambrano MD Unavailable +- [phone] Raul Hoyos MD Unavailable Joya Lira [facility] Unavailable +[phone] Encounter Details Date Type Department Care Team (Latest Contact Info) Description 05/30/2024 Travel Social History Tobacco Use Types Packs/Day [...] How often do you attend amish or muslim serv ices? 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 [address] [place] [address] Denise Woodson Ra, HUMAN SERVICE WORKER [facility] [address] [place] [address] 07/30/2024 8:30 AM HOT STRIP FINISHER Virtual Visit [facility] Neurology Clinic [address] [place] [address] Randy Maradiaga, [address] [place] [address] 08/04/2024 12:00 PM HOT STRIP FINISHER Virtual Visit [facility] Mental Health and Addiction [address] [place] [address] Arthur Salas, [facility] [address] [place] [address] 08/04/2024 3:30 PM HOT STRIP FINISHER [facility] [address] [place] [phone] Denise Woodson Ra, HUMAN SERVICE WORKER DAIRY CHEMIST [address] [place] [address] 08/07/2024 1:00 PM HOT STRIP FINISHER Appointment [facility] Heart Care [address] [facility] [address] [place] [phone] Danna Cardenas PA-C 6405 [place] [address] 08/10/2024 12:30 PM HOT STRIP FINISHER [facility] Neuropsychology [address] [phone] Robin Zepeda MD [address] [place] [address] 08/17/2024 12:30 PM HOT STRIP FINISHER Office Visit [facility] Neuropsychology [address] [phone] Robin Zepeda MD [address] [place] [address] Tulio Ogden, PhD [address] [address] 09/04/2024 11:00 AM HOT STRIP FINISHER Office Visit [facility] [address] [place] [phone] Denise Woodson Ra, HUMAN SERVICE WORKER DAIRY CHEMIST [address] [place] [address] 09/18/2024 1:00 PM HOT STRIP FINISHER Office Visit [facility] [address] [place] [phone] Denise Woodson Ra, HUMAN SERVICE WORKER DAIRY CHEMIST [address] [place] [address] 09/29/2024 9:00 AM HOT STRIP FINISHER Virtual Visit [facility] Neurology [address] [phone] Randy Maraidaga, [address] [address] 10/09/2024 1:20 PM HOT STRIP FINISHER Office Visit [facility] Heart [place] [address] [facility] [address] [place] [phone] Danna Cardenas PA-C 6405 [place] [address] 10/30/2024 4:00 PM HOT STRIP FINISHER Virtual Visit [facility] Vascular [place] [address] [place] [phone] Lisa Zambrano MD [address] [place] [address] 12/29/2024 12:45 PM CDT Office Visit [facility] [address] [facility] [address],[place] [phone] Fabi Coates MD [address] [facility] 75 [place] [address] 12/29/2024 1:45 PM CDT Office Visit [facility] [address] [facility] [address] [facility] [address] [phone] Fabi Coates MD [address] [facility] 75 [place] [address] 06/01/2025 11:15 AM CDT Appointment [facility] Specialty Care Center Imaging [address] [place] [phone] Robin Zepeda MD [address] [place] [address] 06/04/2025 11:00 AM CDT Office Visit [facility] Neurosurgery Clinic [address] 3rd [place] [phone] Robin Zepeda MD [address] [place] [address] Usha Simon APRN [address] [address] documented as of this encounter Goals Goal [...] Mental Health weekly - PT, OT and NEW ORDER CLERK, continuing through [facility] [place]: - Continue following up with PCP: 09/04/2024 - Vascular Dr. Zambrano 05/01/24 - follow up recommended in 6 months: 11/11/24 TBD #[phone]. - call independently - MTM 05/25/2024, completed - Neurosurgery Dr. Zepeda, following up with AUTOMATIC SILK SCREEN PRINTER: 06/04/2025 11:00 AM (Arrive by 10:45 AM) [...] clinic with 24/7 after hours services available. Software Quality Tester will remain available as needed. documented as of this encounter Visit Diagnoses Not on filedocumented in this encounter Additional Health Concerns Active Problems Noted Date Diagnosed Date Increased risk of re-admission 02/18/2024 Assessment Noted Time PHQ-9 Depression Total Score: 5 03/17/20 24 9:45 AM CDT documented as of this encounter Care Teams Scientific Associate Relationship Specialty Start Date End Date Winston Villatoro OD [facility] [place] [address] [facility] [address] [place] [address] PCP - Ophthalmology Ophthalmology 02/11/13 Denise Woodson Ra, APRN DAIRY CHEMIST [address] [address] [address] PCP - General Family Practice 09/21/20 Denise Woodson Ra, APRN CNP [address] [address] [address] Assigned PCP 07/17/20 Usha Simon APRN CNP [address] [place] [address] [id number] [place] [address] Nurse Practitioner Neurological Surgery 01/24/24 Dangelo Salinas MD [address] [place] [address] Neurology 01/27/24 Anastasia Stearns, RN Lead Software Quality Tester 02/06/24 Germaine Lopez, W Community Health Worker Primary Care - CC 02/18/24 Lisa Zambrano MD [address] [facility] [address] [place] [address] Assigned Heart and Vascular Provider 05/08/24 07/07/24 Raul Hoyos MD [address] [facility] [address] Assigned Neuroscience Provider 05/08/24 07/07/24 Joya Lira [facility] [address] [address] Pharmacist Pharmacist 05/25/24 documented as of this encounter
--- OUTSIDE RECORDS SUMMARY | 2024-07-16 13:53 | XMS_ITS | Encounter Summary ---
Author Organization [facility] Address [address] [place] [id number] Care Team Providers Care Sleeping Room Cleaner Name Role Phone Winston Villatoro Se OD Unavailable [phone] Denise Woodson Ra, APRN OUTSIDE CUTTER Unavailable + [phone] Denise Woodson Ra BUS GIRL OUTSIDE CUTTER Primary Care Provid er Usha Simon APRN OUTSIDE CUTTER Unavailable [phone] Dangelo Salinas MD Unavailable Anastasia Stearns RN Unavailable [phone] Germaine Lopez CHW Unavailable Lisa Zambrano MD Unavailable [phone] Raul Hoyos MD Unavailable Joya Lira [facility] Unavailable [phone] Joya Lira [facility] Unavailable [phone] Reason for Visit * Reason Comments Medication Refill Encounter Details Date Type Department Care Team (Late st Contact Info) Description 05/29/2024 [facility] [address] [place] [phone] Denise Woodson Ra, APRN OUTSIDE CUTTER [address] [place] [address] Medication Refill Social History Tobacco [...] How often do you attend yazidism or protestant serv ices? 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 Was seeing [place] providers in between [id number]. Would like to know if Denise will take over prescribing again? Leslie Mcclellan RN, BSN [facility] * Telephone Encounter - Marii Jewell RN - 05/29/2024 2:39 PM CDT Clinic RN: Please contact patient because patient should have run out of this medication on 08/24/22. Confirm patient is taking this medication as prescribed. Document findings and route refill encounter to provider for approval or denial. documented in this encounter Plan of Treatment Upcoming Encounters Date Type Department Care Team (Late st Contact Info) Description 07/20/2024 12:00 PM SUPERVISOR INSPECTION DEPARTMENT Virtual Visit [facility] [address] [place] [phone] Denise Woodson Ra, BUS GIRL OUTSIDE CUTTER [address] [place] [address] 07/30/2024 8:30 AM SUPERVISOR INSPECTION DEPARTMENT Virtual Visit [facility] Neurology [address] [place] [phone] Randy Maradiaga, [address] [address] 08/04/2024 12:00 PM SUPERVISOR INSPECTION DEPARTMENT Virtual Visit [facility] Mental Health and Addiction [address] [phone] Arthur Salas, [address] [address] 08/04/2024 3:30 PM SUPERVISOR INSPECTION DEPARTMENT Virtual Visit [facility] [address] [place] [phone] Denise Woodson Ra, BUS GIRL OUTSIDE CUTTER [address] [place] [address] 08/07/2024 1:00 PM SUPERVISOR INSPECTION DEPARTMENT Appointment [facility] [address] [facility] [address] [place] [phone] Danna Cardenas PA-C [address] [place] [address] 08/10/2024 12:30 PM SUPERVISOR INSPECTION DEPARTMENT Virtual Visit [facility] Neuropsychology [address] [phone] Robin Zepeda MD [address] [place] [address] 08/17/2024 12:30 PM SUPERVISOR INSPECTION DEPARTMENT Office Visit [facility] Neuropsychology [address] [phone] Robin Zepeda MD [address] [place] [address] Tulio Ogden, PhD [address] [address] 09/04/2024 11:00 AM SUPERVISOR INSPECTION DEPARTMENT Office Visit [facility] [address] [place] [phone] Denise Woodson Ra, BUS GIRL OUTSIDE CUTTER [address] [place] [address] 09/18/2024 1:00 PM SUPERVISOR INSPECTION DEPARTMENT Office Visit [facility] [address] [place] [phone] Denise Woodson Ra, BUS GIRL OUTSIDE CUTTER [address] [place] [address] 09/29/2024 9:00 AM SUPERVISOR INSPECTION DEPARTMENT Virtual Visit [facility] Neurology Clinic [address] 3rd [place] [phone] Randy Maradiaga, [address] [address] 10/09/2024 1:20 PM SUPERVISOR INSPECTION DEPARTMENT Office Visit [facility] [address] [facility] [address] [place] [phone] Danna Cardenas PA-C [address] [facility] [place] [address] 10/30/2024 4:00 PM SUPERVISOR INSPECTION DEPARTMENT Virtual Visit [facility] Vascular Clinic [place] [address] [place] [phone] Lisa Zambrano MD [address] [place] [phone] 12/29/2024 12:45 PM CDT Office Visit [facility] [address] [place] [address] [facility] [address] [phone] Fabi Coates MD [address] [place] [address] 12/29/2024 1:45 PM CDT Office Visit [facility] [address] [place], [place] [address]e [facility] [address] [phone] Fabi Cotaes MD [address] [place] [address] 06/01/2025 11:15 AM CDT Appointment [facility] [address] [facility] [address] [place] [address] Robin Zepeda MD [address] [place] [phone] 06/04/2025 11:00 AM CDT Office Visit [facility] Neurosurgery Clinic [address] 3rd [place] [phone] Robin Zepeda MD [address] [place] [address] Usha Simon APRN OUTSIDE CUTTER [address] [place] [phone] documented as of this encounter Goals Goal [...] Mental Health weekly - PT, OT and COMPANY PILOT, continuing through [facility]: - Continue following up with PCP: 09/04/2024 - Vascular Dr. Zambrano 05/01/24 - follow up recommended in 6 months: 11/11/24 TBD #[phone]. - call independently - MTM 05/25/2024, completed - Neurosurgery Dr. Zepeda, following up with COATING AND EMBOSSING UNIT OPERATOR: 06/04/2025 11:00 AM (Arrive by 10:45 AM) Usha Simon APRN OUTSIDE CUTTER 2. I will take my medications as prescribed. 3. I will discuss, review, schedule and complete recommended overdue health maintenance with my Primary Care Provider. 4. I will contact my care team with questions, concerns, support needs. I will use the clinic as a resource and I understand I can contact my clinic with 24/7 after hours services available. Chemistry Physics Teacher will remain available as needed. documented as of this encounter Visit Diagnoses Diagnosis Moderate persistent asthma without complication Unspecified asthma documented in this encounter Additional Health Concerns Active Problems Noted Date Diagnosed Date Increased risk of re-admission 02/18/2024 Assessment Noted Time PHQ-9 Depression Total Score: 5 03/17/20 24 9:45 AM CDT documented as of this encounter Care Teams Sleeping Room Cleaner Relationship Specialty Start Date End Date Winston Villatoro OD [facility] [address] [place] [address] PCP - Ophthalmology Ophthalmology 02/11/13 Denise Woodson Ra, APRN OUTSIDE CUTTER [address] [place] [address] PCP - General Family Practice 09/21/20 Denise Woodson Ra, APRN OUTSIDE CUTTER [address] [facility] [place] [address] Assigned PCP 07/17/20 Usha Simon APRN OUTSIDE CUTTER [address] [facility] [address] Nurse Practitioner Neurological Surgery 01/24/24 Dangelo Salinas MD [address] [place] [address] [place] [id number] Neurology 01/27/24 Anastasia Stearns, RN Lead Chemistry Physics Teacher 02/06/24 Germaine Lopez, CHW Community Health Worker Primary Care - CC 02/18/24 Lisa Zambrano MD [address] [facility] [address] [place] [address] Assigned Heart and Vascular Provider 05/08/24 07/07/24 Raul Hoyos MD [address] [facility], [place] [address] Assigned Neuroscience Provider 05/08/24 07/07/24 Joya Lira RPH [address] [address] Pharmacist Pharmacist 05/25/24 Joya Lira RPH [address] [place] [address] Assigned MTM Pharmacist 06/08/24 documented as of this encounter
--- OUTSIDE RECORDS SUMMARY | 2024-07-16 13:53 | XMS_ITS | Encounter Summary ---
Author Organization [facility] Address [address] [place] [address] Care Team Providers Care Branch Associate Teller Name Role Phone Winston Villatoro Se OD Unavailable [phone] Denise Woodson Ra, APRN COMMERCIAL KITCHEN SERVICE TECHNICIAN Unavailable + [phone] Denise Woodson Ra, APRN COMMERCIAL KITCHEN SERVICE TECHNICIAN Primary Care Provid er Usha Simon APRN COMMERCIAL KITCHEN SERVICE TECHNICIAN Unavailable [phone] Dangelo Salinas MD Unavailable Anastasia Stearns RN Unavailable [phone] Germaine Lopez CHW Unavailable Lisa Zambrano MD Unavailable [phone] Raul Hoyos MD Unavailable Joya Lira [facility] Unavailable [phone] Reason for Visit * Reason Comments Medication Therapy Management Encounter Details Date Type Department Care Team (Late st Contact Info) Description 05/25/2024 11:00 AM CDT Virtual Visit [address] [address] Joya Lira, [facility] [address] [address] Insomnia, unspecified type (Primary Dx); Pain of right upper extremity; Moderate persistent asthma without complication; History of seizure; History of stroke; Generalized anxiety disorder; Chronic rhinitis; Takes dietary supplements; Cerebrovascular accident (CVA), unspecified mechanism (H) Social [...] attend yazidi or restoration serv ices? 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 Today we reviewed what your medicines are for, how to know if they are working, that your medicinesare safe and how to make your medicine regimen as easy as possible. I would avoid the combination of oxycodone and trazodone. Here is the information regarding the drug interaction. Concomitant use of traZODone, with another serotonergic drug associated with SAS ARCHITECT depression may potentiate each others sedative effects, may result in serotonin syndrome, or both. Signs and symptoms of potentially life-threatening serotonin syndrome may include mental status changes (eg, agitation,hallucinations, delirium, coma), autonomic instability (eg, tachycardia, labile blood pressure, dizziness, diaphoresis, flushing, hyperthermia), neuromuscular symptoms (eg, tremor, rigidity, myoclonus, hyperreflexia, incoordination), seizures, and gastrointestinal symptoms such as nausea, vomiting,or diarrhea. Stop hydroxyzine as taking that and trazodone can increase QT interval. Try melatonin 1 mg once daily at bedtime or a few hours before bed if it doesn't work well at bedtime. You can increase the dose by 1 mg each week but stop at 5 mg daily. If you do start selective serotonin reuptake inhibitor for anxiety start low as taking with trazodone could increase risk for serotonin syndrome. You could discuss other options with your primary care provider. Ask you stroke neurologist what your LDL goal is. Since you do not tolerate higher doses of rosuvastatin, there are other medicines that could help reduce your LDL that could be started in addition to rosuvastatin. ' I sent new prescription for the lower dose of rosuvastatin 10 mg to your pharmacy. I would avoid Ibuprofen since you are taking aspirin and they both can increase risk for bleeding. You could discuss future use with your neurologist and your primary care provider. Here is information on CBT-I. I would highly recommend you look into this in the near future. Cognitive Behavioral Therapy for Insomnia Treating insomnia can be difficult because the medications we use can be harmful, especially in older adults. In addition, sleep medications do not tend to be very effective and should only be used short-term. Cognitive behavioral therapy (CBT) is the most effective treatment for long-term insomnia. The goal of CBT for insomnia is to address the underlying causes of the sleep problems, including your habits and how you think about sleep. Here are some options you could look into but if you would like a referral to our CBT-I program let Denise or I know! You can do CBT with a trained psychologist, or from the comfort of your home by following an onlineprogram or workbook. Here are some great resources for at- home CBT: 1) 6-week online CBT course through [facility] for $40: Big Super Search/sleep 2) Say Mary to Insomnia by Oscar Hammonds, PhD at [employer]: 6-week program 3) Overcoming Insomnia: A Cognitive-Behavioral Therapy Approach Workbook by Luis Guzman and Lilliam Jack 4) Quiet Your Mind and Get to Sleep: Solutions to Insomnia for Those with Depression, Anxiety or Chronic Pain ([place] Self-Help Workbook) by Lilliam Jack and Layne Mauricio Guided Meditation The following are some resources for guided mediation that may help you fall asleep more easily. - Here is a quick 2 minute video on how to meditate: https://www.Smart Furnitureube.com/watch?v=rqoxYKtEWEc - https://[employer].[facility].org/health-wellness/mental-health/tools-resourc es/insomnia - Apps that you can download: Headspace, Calm, and Insight Timer Follow-up: as needed It was great speaking with you today. I value your experience and would be very thankful for your time in providing feedback in our clinic survey. In the next few days, you may receive an email or text message from [employer] with a link to a survey related to your ???clinical pharmacist. To schedule another MTM appointment, please call the clinic directly or you may call the MTM scheduling line at [phone] or toll-free at . My Clinical Pharmacist's contact information: Please feel free to contact me with any questions or concerns you have. Keila Lira PharmD Medication Therapy Management Pharmacist [facility] - Saturday and Saturday 7:30 - 4:00 documented in this encounter Progress Notes * Joya Lira RPH - 05/25/2024 11:00 AM CDT Medication Therapy Management (MTM) Encounter ASSESSMENT: Medication Adherence/Access: No issues identified Hyperlipidemia Stable. I asked her to reach out to her stroke neurologist to see if she has an LDL goal with history of stroke. Asthma /Allergic Rhinitis Stable Mental Health Anxiety Recommended she continue to meet with therapist for better management of her anxiety. Recommended not on pharmacological options to help manage anxiety see plan. She seems to be sensitive to medications in particular combination of medications that modulate serotonin potentially leading to serotonin syndrome. Recommend starting low if an SSRI is started for anxiety in the future and monitor closely for any QTc prolongation or signs and symptoms of serotonin syndrome. Supplements Stable History of Ischemic stroke, bihemispheric due to procedural complication after cerebral angiogram and right-sided weakness and numbness 12/2023 Stable. Recommended she reach out to her stroke neurologist to find out if she has an LDL goal. Since she is not able to tolerate higher doses of rosuvastatin could consider adding ezetimibe or [id number] if she is not at her LDL goal. Post stroke generalized tonic-clonic seizure Stable. Recommended she continue to follow-up with her neurologist regarding her seizure medications. She does have upcoming appointments. Headache/neck pain: Improved since starting acetaminophen scheduled. Insomnia: Recommended she stop hydroxyzine since she has a history of QT prolongation or at least high QTc interval. Taking hydroxyzine and trazodone can increase the risk for QT prolongation. Recommended she consider CBT-I and asked her to reach out when she is ready for a referral. PLAN: I would avoid the combination of oxycodone and trazodone. Here is the information regarding the drug interaction. Concomitant use of traZODone, with another serotonergic drug associated with SAS ARCHITECT depression may potentiate each others sedative effects, may result in serotonin syndrome, or both. Signs and symptoms of potentially life-threatening serotonin syndrome may include mental status changes (eg, agitation,hallucinations, delirium, coma), autonomic instability (eg, tachycardia, labile blood pressure, dizziness, diaphoresis, flushing, hyperthermia), neuromuscular symptoms (eg, tremor, rigidity, myoclonus, hyperreflexia, incoordination), seizures, and gastrointestinal symptoms such as nausea, vomiting,or diarrhea. Stop hydroxyzine as taking that and trazodone can increase QT interval. Try melatonin 1 mg once daily at bedtime or a few hours before bed if it doesn't work well at bedtime. You can increase the dose by 1 mg each week but stop at 5 mg daily. If you do start selective serotonin reuptake inhibitor for anxiety start low as taking with trazodone could increase risk for serotonin syndrome. You could discuss other options with your primary care provider. Ask you stroke neurologist what your LDL goal is. Since you do not tolerate higher doses of rosuvastatin, there are other medicines that could help reduce your LDL that could be started in addition to rosuvastatin. ' I sent new prescription for the lower dose of rosuvastatin 10 mg to your pharmacy. I would avoid Ibuprofen since you are taking aspirin and they both can increase risk for bleeding. You could discuss future use with your neurologist and your primary care provider. Here is information on CBT-I. I would highly recommend you look into this in the near future. Cognitive Behavioral Therapy for Insomnia Treating insomnia can be difficult because the medications we use can be harmful, especially in older adults. In addition, sleep medications do not tend to be very effective and should only be used short-term. Cognitive behavioral therapy (CBT) is the most effective treatment for long-term insomnia. The goal of CBT for insomnia is to address the underlying causes of the sleep problems, including your habits and how you think about sleep. Here are some options you could look into but if you would like a referral to our CBT-I program let Denise or I know! You can do CBT with a trained psychologist, or from the comfort of your home by following an onlineprogram or workbook. Here are some great resources for at- home CBT: 1) 6-week online CBT course through [facility] for $40: Big Super Search/sleep 2) Say Mary to Insomnia by Oscar Hammonds, PhD at [employer]: 6-week program 3) Overcoming Insomnia: A Cognitive-Behavioral Therapy Approach Workbook by Luis Guzman and Lilliam Jack 4) Quiet Your Mind and Get to Sleep: Solutions to Insomnia for Those with Depression, Anxiety or Chronic Pain ([place] Self-Help Workbook) by Lilliam Jack and Layne Mauricio Guided Meditation The following are some resources for guided mediation that may help you fall asleep more easily. - Here is a quick 2 minute video on how to meditate: https://www.[employer] Media.com/watch?v=rqoxYKtEWEc - https://healthy.[facility]/health-wellness/mental-health/tools-resourc es/insomnia - Apps that you can download: Headspace, Calm, and Insight Timer Follow-up: as needed SUBJECTIVE/OBJECTIVE: Alcon Zamora is a 48 year old female seen for an initial visit. She was referred to me from Anastasia Stearns RN rental boats caretaker. Reason for visit: comprehensive medication review. Allergies/ADRs: Reviewed in chart Past Medical History: Reviewed in chart Tobacco: She reports that she has never smoked. She has never been exposed to tobacco smoke. She has never used smokeless tobacco. Alcohol: not currently using Medication Adherence/Access: Patient takes medications directly from bottles. Patient takes medications 2 time(s) per day. Per patient, misses medication 0 times per week. Medication barriers: none. The patient fills medications at [facility]: NO, fills medications at [facility]. Hyperlipidemia rosuvastatin 10 mg daily - started for stroke prevention by stroke neurologist. She is not sure what her LDL goal is and this was not discussed when her neurologist started the statin. Patient reports the following side effects: she had muscle pains on the 20 mg of rosuvastatin. She had stopped taking rosuvastatin and the pain resolved. At her 05/01/24 neurology visit, she reports her [facility] neurologist told her to restart at 10 mg daily. Since restarting at lower dose she has not had muscle pain issues. Asthma /Allergic Rhinitis Brio inhaler once daily Albuterol inhaler - has not used in over a year Cetirizine 10 mg once daily This works well with no side effects. Mental Health Anxiety No medications currently Medication History: She used to be on citalopram in the past but had some bradycardia she thinks. She also tried escitalopram while on trazodone and had some side effects but cannot recall exact sideeffects. She has tried bupropion in the past but had GI upset. She has been more anxious recently due to hospitalizations from stroke and seizure. She has been pretty good about managing her anxiety using aromatherapy, meditation and other nonpharmacological options however recently has become a little more difficult to manage. She does see a therapist every other week which has been helpful. She plans to discuss further with her primary care provider but will wait until after her seizure medications are adjusted. Supplements Magnesium glycinate 100 mg at bedtime Metamucil once daily Senna/docusate one at bedtime but plans to stop once she is back to normal Magnesium works well for legs cramps No reported issues at this time. History of Ischemic stroke, bihemispheric due to procedural complication after cerebral angiogram and right-sided weakness and numbness 12/2023 Aspirin 243 mg once daily - Lorazepam 0.5-1 mg as needed for seizure aura onset - it does work when she takes it. No side effects. She was on 325 mg once daily after stroke, in mid-february she had black bruises and then stomach pains, she started carafate and that helped. ON current dose of aspirin she is doing okay. She has appointment coming up. She has seen stroke neurologist, vascular neurologist and epilepsy neurologist. Post stroke generalized tonic-clonic seizure Levetiracetam 375 mg twice daily Oxcarbazepine 150 mg at bedtime daily Reports no seizure activity recently. She is currently working with her seizure neurologist to transition from levetiracetam to oxcarbazepine. She is communicating frequently with her neurologist. Headache/neck pain: Acetaminophen 1000 mg twice daily Oxycodone 2.5 mg as needed - has not used since leaving the hospital as she is worried about possible side effect Lidocaine patch 4% as needed - hs not used in while but works well. Icy hot as needed topically She reports acetaminophen is working betting to take scheduled. She is not currently taking ibuprofen but wondering if that would be an option for pain. She had headaches after her stroke, they went away and came back May 07 after her last hospitalization. While he was in the hospital this last time she took oxycodone a few hours after taking her trazodone at bedtime and woke up shortly after with hallucination and possible seizure. She is wondering ifshe should avoid taking these 2 medicines together. Insomnia: Trazodone 100 mg at bedtime - she has been on this dose for a long time. Hydroxyzine 25 mg at bedtime - just restarted recently She started taking hydroxyzine again to help her sleep longer but she doesn't really feel like it helps. Before the stroke the trazodone was working and she as able to sleep 8 hours. Now she wakes 2-3 times at night and wide awake making it hard to fall back to sleep. She has not tried melatonin. She has not done CBT-I but interested. January 2024 ED visit showed QT- prolongation Today's Vitals: LMP 01/07/2006 Post Discharge Medication Reconciliation Status: discharge medications reconciled, continue medications without change. I spent 57 minutes with this patient today. A copy of the visit note was provided to the patient's provider(s). A summary of these recommendations was sent via [employer]. Keila Lira, PharmD Medication Therapy Management Pharmacist Telemedicine Visit Details Type of service: Video Conference via [employer] Start Time: 11:02 AM End Time: 11:59 AM Medication Therapy Recommendations Insomnia, unspecified type Current Medication: hydrOXYzine HCl (ATARAX) 50 MG tablet (Discontinued) Rationale: Unsafe medication for the patient - Adverse medication event - Safety Recommendation: Discontinue Medication Status: Accepted per CPA Current Medication: traZODone (DESYREL) 50 MG tablet Rationale: Synergistic therapy - Needs additional medication therapy - Indication Recommendation: Start Medication - melatonin 1 MG Tabs tablet Status: Accepted - no CPA Needed Pain of right upper extremity Current Medication: oxyCODONE (ROXICODONE) 5 MG tablet Rationale: Medication interaction - Dosage too high - Safety Recommendation: Provide Education Status: Patient Agreed - Adherence/Education documented in this encounter Plan of Treatment Upcoming Encounters Date Type Department Care Team (Late st Contact Info) Description 07/20/2024 12:00 PM ARMATURE VARNISHER Virtual Visit [facility] [address] [place] [address] Denise Woodson Ra, AMUSEMENT PARK ENTERTAINER COMMERCIAL KITCHEN SERVICE TECHNICIAN [address] [place], [place] [phone] 07/30/2024 8:30 AM ARMATURE VARNISHER Virtual Visit [facility] Neurology [address] [place] [address] Randy Maradiaga, [address] [place] [address] 08/04/2024 12:00 PM ARMATURE VARNISHER Virtual Visit [facility] [place] [address] [place] [address] Arthur Salas, [facility] [address] [place] [address] 08/04/2024 3:30 PM ARMATURE VARNISHER Virtual Visit [facility] [address] [place] [address] Denise Woodson Ra, AMUSEMENT PARK ENTERTAINER [facility] [address] [place], [place] [phone] 08/07/2024 1:00 PM ARMATURE VARNISHER Appointment [facility] Heart Care [address] [facility] [address] [place] [phone] Danna Cardenas PA-C [address] [place], [place] [address] 08/10/2024 12:30 PM ARMATURE VARNISHER Virtual Visit [facility] Neuropsychology [address] [phone] Robin Zepeda MD [address] [place] [address] 08/17/2024 12:30 PM ARMATURE VARNISHER Office Visit [facility] Neuropsychology [address] [phone] Robin Zepeda MD [address] [place] [id number] Tulio Ogden, PhD [address] [address] 09/04/2024 11:00 AM ARMATURE VARNISHER Office Visit [facility] [address] [place] [phone] Denise Woodson Ra, AMUSEMENT PARK ENTERTAINER COMMERCIAL KITCHEN SERVICE TECHNICIAN [address] [place], [place] [phone] 09/18/2024 1:00 PM ARMATURE VARNISHER [facility] [address] [place] [phone] Denise Woodson Ra, AMUSEMENT PARK ENTERTAINER COMMERCIAL KITCHEN SERVICE TECHNICIAN [address] [place] [address] 09/29/2024 9:00 AM ARMATURE VARNISHER Virtual Visit [facility] Neurology [address] [phone] Randy Maradiaga, [address] [address] 10/09/2024 1:20 PM ARMATURE VARNISHER Office Visit [facility] Heart [facility] [address] [facility] [address] [place] [phone] Danna Cardenas PA-C [address] [place] [address] 10/30/2024 4:00 PM ARMATURE VARNISHER Virtual Visit [facility] Vascular [facility] [address] [place] [phone] Lisa Zambrano MD [address] [place] [address] 12/29/2024 12:45 PM CDT Office Visit [facility] [address] [place] [address],[place] [phone] Fabi Coates MD [address] [address] 12/29/2024 1:45 PM CDT Office Visit [facility] [address] [place] [phone] Fabi Coates MD [address] [address] 06/01/2025 11:15 AM CDT Appointment [facility] Imaging [address] [facility] [address] [place] [phone] Robin Zepeda MD [address] [place] [address] 06/04/2025 11:00 AM CDT Office Visit [facility] Neurosurgery [address] [place] [phone] Robin Zepeda MD [address] [place] [address] Usha Simon APRN [address] [address] documented as of this encounter Goals Goal [...] Mental Health weekly - PT, OT and DRUM SAW OPERATOR, continuing through [facility]: - Continue following up with PCP: 09/04/2024 - Vascular Dr. Zambrano 05/01/24 - follow up recommended in 6 months: 11/11/24 TBD #[phone]. - call independently - MTM 05/25/2024, completed - Neurosurgery Dr. Zepeda, following up with DELIVERY TECHNICIAN: 06/04/2025 11:00 AM (Arrive by 10:45 [...] clinic with 24/7 after hours services available. Content Editor will remain available as needed. documented as of this encounter Visit Diagnoses Diagnosis Insomnia, unspecified type- Primary Pain of right upper extremity Moderate persistent asthma without complication Unspecified asthma History of seizure History of stroke Transient ischemic attack (TIA), and cerebral infarction without residual deficits Generalized anxiety disorder Chronic rhinitis Takes dietary supplements Cerebrovascular accident (CVA), unspecified mechanism (H) documented in this encounter Additional Health Concerns Active Problems Noted Date Diagnosed Date Increased risk of re-admission 02/18/2024 Assessment Noted Time PHQ-9 Depression Total Score: 5 03/17/20 24 9:45 AM CDT documented as of this encounter Care Teams Branch Associate Teller Relationship Specialty Start Date End Date Winston Villatoro OD [facility] [place] [address] [place] [phone] PCP - Ophthalmology Ophthalmology 02/11/13 Denise Woodson Ra, AMUSEMENT PARK ENTERTAINER COMMERCIAL KITCHEN SERVICE TECHNICIAN [address] [address] [address] PCP - General Family Practice 09/21/20 Denise Woodson Ra, APRN COMMERCIAL KITCHEN SERVICE TECHNICIAN [address] [place] [address] Assigned PCP 07/17/20 Usha Simon APRN COMMERCIAL KITCHEN SERVICE TECHNICIAN [address] [address] Nurse Practitioner Neurological Surgery 01/24/24 Dangelo Salinas MD [address] [place] [address] Neurology 01/27/24 Anastasia Stearns, RN Lead Content Editor 02/06/24 Germaine Lopez, W Community Health Worker Primary Care - CC 02/18/24 Lisa Zambrano MD [address] [facility] [address] [place] [address] Assigned Heart and Vascular Provider 05/08/24 07/07/24 Raul Hoyos MD [address] [address] Assigned Neuroscience Provider 05/08/24 07/07/24 Joya Lira RPH [address] [place] [address] Pharmacist Pharmacist 05/25/24 documented as of this encounter
--- OUTSIDE RECORDS SUMMARY | 2024-07-16 13:53 | XMS_ITS | Encounter Summary ---
Author Organization [facility] Address [address] [place] [address] Care Team Providers Care Manager Freelance Name Role Phone Winston Villatoro OD Unavailable [phone] Denise Woodson Ra, APRN BILLING COLLECTIONS SPECIALIST Unavailable Denise Woodson Ra, APRN BILLING COLLECTIONS SPECIALIST Primary Care Provid er Usha Simon APRN BILLING COLLECTIONS SPECIALIST Unavailable [phone] Dangelo Salinas MD Unavailable Anastasia Stearns RN Unavailable Germaine Lopez CHW Unavailable [phone] Lisa Zambrano MD Unavailable [phone] Raul Hoyos MD Unavailable Joya Lira [facility] Unavailable [phone] Encounter Details Date Type Department Care Team (Late st Contact Info) Description 05/26/2024 Documentation Only [facility] Neurology Clinic [address] 3rd [place] [address] Raul Hoyos MD [address] [place], [place] [address] [address] Social History Tobacco Use Types [...] How often do you attend buddhism or congregation serv ices? 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 Not on file Not on file Not on file Not on file Not on file Not on file documented as of this encounter Plan of Treatment Upcoming Encounters Date Type Department Care Team (Late st Contact Info) Description 07/20/2024 12:00 PM POCKET SETTER Virtual Visit [facility] [address] [place] [address] Denise Woodson Ra, BRANCH OFFICE MANAGER BILLING COLLECTIONS SPECIALIST [address] [place], [place] [id number] 07/30/2024 8:30 AM POCKET SETTER Virtual Visit [facility] Neurology Clinic [address] [place] [address] [phone] Randy Maradiaga DO [address] [place] [address] 08/04/2024 12:00 PM POCKET SETTER Virtual Visit [facility] Mental Health and Addiction Clinic [address] [place] [address] Arthur Salas, [facility] [address] [place] [address] 08/04/2024 3:30 PM POCKET SETTER Virtual Visit [facility] [address] [place] [phone] Denise Woodson Ra, BRANCH OFFICE MANAGER [facility] [address] [place], [place] 0706068 08/07/2024 1:00 PM POCKET SETTER Appointment [facility] Heart Care 6405 [facility] [address] [place] [address] [phone] Danna Cardenas PA-C 6405 [place], [place] 829725 08/10/2024 12:30 PM POCKET SETTER Virtual Visit [facility] Neuropsychology [address] [phone] Robin Zepeda MD [address] [place] [address] 08/17/2024 12:30 PM POCKET SETTER Office Visit [facility] Neuropsychology [address] [phone] Robin Zepeda MD [address] [place] [address] 915185 Tulio Ogden, PhD [address] [address] 09/04/2024 11:00 AM POCKET SETTER Office Visit [facility] [address] [place] [phone] Denise Woodson Ra, BRANCH OFFICE MANAGER BILLING COLLECTIONS SPECIALIST [address] [place], [place] [phone] 09/18/2024 1:00 PM POCKET SETTER Office Visit [facility] [address] [place] [phone] Denise Woodson Ra, BRANCH OFFICE MANAGER BILLING COLLECTIONS SPECIALIST [address] [place], [place] 0960268 09/29/2024 9:00 AM POCKET SETTER Virtual Visit [facility] Neurology [address] [phone] Randy Maradiaga, [address] [address] 10/09/2024 1:20 PM POCKET SETTER Office Visit [facility] Heart [address] [place] [phone] Danna Cardenas PA-C 9853 [place], [place] 675375 10/30/2024 4:00 PM POCKET SETTER Virtual Visit [facility] Vascular [place] [address] [address] [place] [phone] Lisa Zambrano MD [address] [facility] [place] 432645 12/29/2024 12:45 PM CDT Office Visit [facility] [address] [place] [phone] Fabi Coates MD [address] 902495 12/29/2024 1:45 PM CDT Office Visit [facility] [address] [place] [address] [phone] Fabi Coates MD [address] [place] [address] 405675 06/01/2025 11:15 AM CDT Appointment [facility] [address] [facility] [address] [place] [address] Robin Zepeda MD [address] [place] [address] 213475 06/04/2025 11:00 AM CDT Office Visit [facility] Neurosurgery [address] 3rd [place] [phone] Robin Zepeda MD [address] [place] [address] Usha Simon APRN [address] [id number] documented as of this encounter Goals Goal [...] Mental Health weekly - PT, OT and FUNERAL DIRECTOR/EMBALMER/OWNER, continuing through [facility] [place]: - Continue following up with PCP: 09/04/2024 - Vascular Dr. Zambrano 05/01/24 - follow up recommended in 6 months: 11/11/24 TBD #[phone]. - call independently - MTM 05/25/2024, completed - Neurosurgery Dr. Zepeda, following up with RUG SETTER AXMINSTER: 06/04/2025 11:00 AM (Arrive by 10:45 AM) Usha Simon APRN BILLING COLLECTIONS SPECIALIST 2. I will take my medications as prescribed. 3. I will discuss, review, schedule and complete recommended overdue health maintenance with my Primary Care Provider. 4. I will contact my care team with questions, concerns, support needs. I will use the clinic as a resource and I understand I can contact my clinic with 24/ after hours services available. Supervisor Fish Processing will remain available as needed. documented as of this encounter Visit Diagnoses Not on filedocumented in this encounter Additional Health Concerns Active Problems Noted Date Diagnosed Date Increased risk of re-admission 02/18/2024 Assessment Noted Time PHQ-9 Depression Total Score: 5 03/17/20 24 9:45 AM CDT documented as of this encounter Care Teams Manager Freelance Relationship Specialty Start Date End Date Winston Villatoro OD [facility] [place] [address] [place] [address] PCP - Ophthalmology Ophthalmology 02/11/13 Denise Woodson Ra, BRANCH OFFICE MANAGER BILLING COLLECTIONS SPECIALIST [address] [address] [place] [address] PCP - General Family Practice 09/21/20 Denise Woodson Ra, APRN BILLING COLLECTIONS SPECIALIST [address] [place] [address] Assigned PCP 07/17/20 Usha Simon APRN BILLING COLLECTIONS SPECIALIST [address] [address] Nurse Practitioner Neurological Surgery 01/24/24 Dangelo Salinas MD [address] [place] [address] Neurology 01/27/24 Anastasia Stearns, RN Lead Supervisor Fish Processing 02/06/24 Germaine Lopez, [facility] Community Health Worker Primary Care - CC 02/18/24 Lisa Zambrano MD 6405 [facility] [address] [place] 133305 Assigned Heart and Vascular Provider 05/08/24 07/07/24 Raul Hoyos MD [address] [address] Assigned Neuroscience Provider 05/08/24 07/07/24 Joya Lira RP [address] [place] [address] Pharmacist Pharmacist 05/25/24 documented as of this encounter
--- OUTSIDE RECORDS SUMMARY | 2024-07-16 13:53 | XMS_ITS | Encounter Summary ---
Author Organization [facility] Address [address] [place] [address] Care Team Providers Care General Assembler Installer Name Role Phone Winston Villatoro OD Unavailable [phone] Denise Woodson Ra, APRN VASCULAR ULTRASOUND TECHNOLOGIST Unavailable + [phone] Denise Woodson Ra, APRN VASCULAR ULTRASOUND TECHNOLOGIST Primary Care Provid er Usha Simon APRN VASCULAR ULTRASOUND TECHNOLOGIST Unavailable [phone]- [phone] Dangelo Salinas MD Unavailable Anastasia Stearns RN Unavailable [phone] Germaine Lopez CHW Unavailable [phone] Lisa Zambrano MD Unavailable +- [phone] Raul Hoyos MD Unavailable [phone] Joya Lira [facility] Unavailable [phone] Encounter Details Date Type Department Care Team (Latest Contact Info) Description 06/07/2024 Travel Social History Tobacco Use Types Packs/Day [...] How often do you attend baptism or denominational serv ices? 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 Not on file Not on file Not on file Not on file Not on file Not on file documented as of this encounter Plan of Treatment Upcoming Encounters Date Type Department Care Team (Late st Contact Info) Description 07/20/2024 12:00 PM ANIMATOR Virtual Visit [facility] [address] [place] [address] Denise Woodson Ra, JEWELRY POLISHER [facility] [address] [place] [address] 07/30/2024 8:30 AM ANIMATOR Virtual Visit [facility] Neurology Clinic [address]rd [place] [address] Randy Maradiaga, [address] [place] [address] 08/04/2024 12:00 PM ANIMATOR Virtual Visit [facility] Mental Health and Addiction [address] [place] [address] Arthur Salas, [facility] [address] [place] [address] 08/04/2024 3:30 PM ANIMATOR [facility] [address] [place] [phone] Denise Woodson Ra, JEWELRY POLISHER VASCULAR ULTRASOUND TECHNOLOGIST [address] [place] [address] 08/07/2024 1:00 PM ANIMATOR Appointment [facility] Heart Care 6405 [facility] [address] [place] [phone] Danna aCrdenas PA-C 6405 [place] [address] 08/10/2024 12:30 PM ANIMATOR Virtual Visit [facility] Neuropsychology [address] [phone] Robin Zepeda MD [address] [place] [address] 08/17/2024 12:30 PM ANIMATOR Office Visit [facility] Neuropsychology [address] [phone] Robin Zepeda MD [address] [place] [address] 460845 Tulio Ogden, PhD [address] [address] 09/04/2024 11:00 AM ANIMATOR Office Visit [facility] [address] [place] [phone] Denise Woodson Ra, JEWELRY POLISHER VASCULAR ULTRASOUND TECHNOLOGIST [address] [place] [address] 09/18/2024 1:00 PM ANIMATOR Office Visit [facility] [address] [place] [phone] Denise Woodson Ra, JEWELRY POLISHER VASCULAR ULTRASOUND TECHNOLOGIST [address] [place] [address] 09/29/2024 9:00 AM ANIMATOR Virtual Visit [facility] Neurology [address] [phone] Randy Maradiaga, [address] 464515 10/09/2024 1:20 PM ANIMATOR Office Visit [facility] Heart [place] [address] [facility] [address] [place] [phone] Danna Cardenas PA-C 6405 [place] [address] 10/30/2024 4:00 PM ANIMATOR Virtual Visit [facility] Vascular [place] [address] [place] [phone] Lisa Zambrano MD [address] [place] [address] 12/29/2024 12:45 PM CDT Office Visit [facility] [address] [facility] [address],[place] [phone] Fabi Coates MD 420 [facility] 75 [place] [address] 12/29/2024 1:45 PM CDT Office Visit [facility] 2450 [facility] [address],[place] [phone] Fabi Coates MD [address] [facility] 75 [place] [address] 06/01/2025 11:15 AM CDT Appointment [facility] Special[facility] Center Imaging [address] [place] [phone] Robin Zepeda MD [address] [place] [address] 06/04/2025 11:00 AM CDT Office Visit [facility] Neurosurgery Clinic [address] 3rd [place] [phone] Robin Zepeda MD [address] [place] [address] Usha Simon APRN [address] [address] documented as of this encounter Goals Goal [...] Mental Health weekly - PT, OT and NEWSCAST DIRECTOR, continuing through [facility] [place]: - Continue following up with PCP: 09/04/2024 - Vascular Dr. Zambrano 05/01/24 - follow up recommended in 6 months: 11/11/24 TBD #[phone]. - call independently - MTM 05/25/2024, completed - Neurosurgery Dr. Zepeda, following up with POPCORN MACHINE OPERATOR: 06/04/2025 11:00 AM (Arrive by 10:45 [...] clinic with 24/7 after hours services available. Training And Development Coordinator will remain available as needed. documented as of this encounter Visit Diagnoses Not on filedocumented in this encounter Additional Health Concerns Active Problems Noted Date Diagnosed Date Increased risk of re-admission 02/18/2024 Assessment Noted Time PHQ-9 Depression Total Score: 5 03/17/20 24 9:45 AM CDT documented as of this encounter Care Teams General Assembler Installer Relationship Specialty Start Date End Date Winston Villatoro OD [facility] [place] 701 [facility] [address] [place] [address] PCP - Ophthalmology Ophthalmology 02/11/13 Denise Woodson Ra, APRN VASCULAR ULTRASOUND TECHNOLOGIST [address] [address] [address] PCP - General Family Practice 09/21/20 Denise Woodson Ra, APRN CNP [address] [place] [place] [address] Assigned PCP 07/17/20 Usha Simon APRN CNP [address] [place] [address] [id number] [place] [address] Nurse Practitioner Neurological Surgery 01/24/24 Dangelo Salinas MD [address] [place] [address] Neurology 01/27/24 Anastasia Stearns, RN Lead Training And Development Coordinator 02/06/24 Germaine Lopez, W Community Health Worker Primary Care - CC 02/18/24 Lisa Zambrano MD 6405 [facility] [address] [place] [address] Assigned Heart and Vascular Provider 05/08/24 07/07/24 Raul Hoyos MD 909 [facility] [place] [address] Assigned Neuroscience Provider 05/08/24 07/07/24 Joya Lira [facility] [address] [place] [address] Pharmacist Pharmacist 05/25/24 documented as of this encounter
--- OUTSIDE RECORDS SUMMARY | 2024-07-16 13:53 | XMS_ITS | Encounter Summary ---
Author Organization [facility] Address [address] [place] [address] Care Team Providers Care Training Development Director Name Role Phone Winston iVllatoro OD Unavailable [phone] Denise Woodson Ra, APRN CROWN AND BRIDGE TECHNICIAN Unavailable + [phone] Denise Woodson Ra, APRN CROWN AND BRIDGE TECHNICIAN Primary Care Provid er Usha Simon APRN CROWN AND BRIDGE TECHNICIAN Unavailable [phone]- [phone] Dangelo Salinas MD Unavailable Anastasia Stearns RN Unavailable [phone] Germaine Lopez CHW Unavailable [phone] Lisa Zambrano MD Unavailable [phone]- [phone] Raul Hoyos MD Unavailable Joya Lira [facility] Unavailable [phone] Encounter Details Date Type Department Care Team (Latest Contact Info) Description 06/02/2024 Travel Social History Tobacco Use Types Packs/Day [...] How often do you attend cheondoism or sikhism serv ices? 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 Not on file Not on file Not on file Not on file Not on file documented as of this encounter Plan of Treatment Upcoming Encounters Date Type Department Care Team (Late st Contact Info) Description 07/20/2024 12:00 PM SURGICAL NURSE Virtual Visit [facility] [address] [place] [address] Denise Woodson Ra, CONSULTING PROPERTY MANAGER [facility] [address] [place] [address] 07/30/2024 8:30 AM SURGICAL NURSE Virtual Visit [facility] Neurology Clinic [address] [place] [address] Randy Maradiaga, [address] [place] [address] 08/04/2024 12:00 PM SURGICAL NURSE Virtual Visit [facility] Mental Health and Addiction [address] [place] [address] Arthur Salas, [facility] [address] [place] [address] 08/04/2024 3:30 PM SURGICAL NURSE [facility] [address] [place] [phone] Denise Woodson Ra, CONSULTING PROPERTY MANAGER CROWN AND BRIDGE TECHNICIAN [address] [place] [address] 08/07/2024 1:00 PM SURGICAL NURSE Appointment [facility] Heart Care 6405 [facility] [address] [place] [phone] Danna Cardenas PA-C 6405 [place] [address] 08/10/2024 12:30 PM SURGICAL NURSE Virtual Visit [facility] Neuropsychology [address] [phone] Robin Zepeda MD [address] [place] [address] 08/17/2024 12:30 PM SURGICAL NURSE Office Visit [facility] Neuropsychology [address] [phone] Robin Zepeda MD [address] [place] [address] 964605 Tulio Ogden, PhD [address] [address] 09/04/2024 11:00 AM SURGICAL NURSE Office Visit [facility] [address] [place] [phone] Denise Woodson Ra, CONSULTING PROPERTY MANAGER CROWN AND BRIDGE TECHNICIAN [address] [place] [address] 09/18/2024 1:00 PM SURGICAL NURSE Office Visit [facility] [address] [place] [phone] Denise Woodson Ra, CONSULTING PROPERTY MANAGER CROWN AND BRIDGE TECHNICIAN [address] [place] [address] 09/29/2024 9:00 AM SURGICAL NURSE Virtual Visit [facility] Neurology [address] [phone] Randy Maradiaga, [address] [address] 10/09/2024 1:20 PM SURGICAL NURSE Office Visit [facility] Heart [place] 778695 [facility] [address] [place] [phone] Danna Cardenas PA-C 6405 [place] [address] 10/30/2024 4:00 PM SURGICAL NURSE Virtual Visit [facility] Vascular [place] [address] [place] [phone] Lisa Zambrano MD [address] [place] [address]395 12/29/2024 12:45 PM CDT Office Visit [facility] [address] [facility] [address],[place] [phone] Fabi Coates MD 420 [place] [facility] 75 [place] [address] 12/29/2024 1:45 PM CDT Office Visit [facility] 2450 [facility] Explorer [facility] [address],[place] [phone] Fabi Coates MD [address] [place] [address] [facility] 75 [place] [address] 06/01/2025 11:15 AM CDT Appointment [facility] Specialty Care Center Imaging [address] [place] [phone] Robin Zepeda MD [address] [place] [address] 06/04/2025 11:00 AM CDT Office Visit [facility] Neurosurgery Clinic [address] 3rd [place] [phone] Robin Zepeda MD [address] [place] [address] Usha Simon APRN [address] [address] documented as of this encounter Goals Goal [...] Health weekly - PT, OT and WINDOW DISPLAY DESIGNER, continuing through [facility] [place]: - Continue following up with PCP: 09/04/2024 - Vascular Dr. Zambrano 05/01/24 - follow up recommended in 6 months: 11/11/24 TBD #[phone]. - call independently - MTM 05/25/2024, completed - Neurosurgery Dr. Zepeda, following up with SURGERY TECH: 06/04/2025 11:00 AM (Arrive by 10:45 AM) [...] clinic with 24/7 after hours services available. Powertrain Design Engineer will remain available as needed. documented as of this encounter Visit Diagnoses Not on filedocumented in this encounter Additional Health Concerns Active Problems Noted Date Diagnosed Date Increased risk of re-admission 02/18/2024 Assessment Noted Time PHQ-9 Depression Total Score: 5 03/17/20 24 9:45 AM CDT documented as of this encounter Care Teams Training Development Director Relationship Specialty Start Date End Date Winston Villatoro OD [facility] [place] 701 [facility] [address] [place] [address] PCP - Ophthalmology Ophthalmology 02/11/13 Denise Woodson Ra, APRN CROWN AND BRIDGE TECHNICIAN [address] [address] [address] PCP - General Family Practice 09/21/20 Denise Woodson Ra, APRN CNP [address] [address] [address] Assigned PCP 07/17/20 Usha Simon APRN CNP [address] [place] [address] [id number] [place] [address] Nurse Practitioner Neurological Surgery 01/24/24 Dangelo Salinas MD [address] [place] [address] Neurology 01/27/24 Anastasia Stearns, RN Lead Powertrain Design Engineer 02/06/24 Germaine Lopze, W Community Health Worker Primary Care - CC 02/18/24 Lisa Zambrano MD 6405 [facility] [address] [place] [address] Assigned Heart and Vascular Provider 05/08/24 07/07/24 Raul Hoyos MD 909 [facility] [place] [address] Assigned Neuroscience Provider 05/08/24 07/07/24 Joya Lira [facility] [address] [place] [address] Pharmacist Pharmacist 05/25/24 documented as of this encounter
--- OUTSIDE RECORDS SUMMARY | 2024-07-16 13:53 | XMS_ITS | Encounter Summary ---
Author Organization [facility] Address [address] [place] [address] Care Team Providers Care Clinical Lab Scientist Name Role Phone Shauna Winston Se OD Unavailable [phone] Denise Woodson Ra, APRN UI DEVELOPER DESIGNER Unavailable + [phone] Denise Woodson Ra, APRN UI DEVELOPER DESIGNER Primary Care Provid er Usha Simon APRN UI DEVELOPER DESIGNER Unavailable + [phone] Dangelo Salinas MD Unavailable Anastasia Stearns RN Unavailable [phone] Germaine Lopez CHW Unavailable Lias Zambrano MD Unavailable Raul Hoyos MD Unavailable Joya Lira [facility] Unavailable [phone] Joya Lira [facility] Unavailable [phone] Fabi Coates MD Unavailable [phone] Robin Zepeda MD Unavailable [phone] Danna Cardenas PA-C Unavailable [phone] Felicita Desai RN Unavailable Unavailab le Encounter Details Date Type Department Care Team (Late st Contact Info) Description 05/25/2024 [facility] Neurology [facility] [address] [place] [address] Raul Hoy[address] MD [address] [facility] [id number] [place] [address] Social History Tobacco Use Types Packs/Day Years [...] How often do you attend hinduism or yarsani serv ices? 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 Not on file Not on file Not on file Not on file Not on file Not on file documented as of this encounter Plan of Treatment Upcoming Encounters Date Type Department Care Team (Late st Contact Info) Description 07/20/2024 12:00 PM [employer]KE [employer] Virtual Visit [facility] [address] [place] [phone] Denise Woodson Ra, EMPLOYMENT APPEALS EXAMINER UI DEVELOPER DESIGNER [address] [place], [place] [id number] 07/30/2024 8:30 AM FLAKE MILLER WHEAT [employer] OATS Virtual Visit [facility] Neurology Clinic [address] [place] [address] Randy Maradiaga DO [address] [place] [address] 08/04/2024 12:00 PM FLAKE MILL[employer] O[employer] Virtual Visit [facility] Mental Health and Addiction Clinic [address] [place] [phone] Arthur Salas, [address] [address] 08/04/2024 3:30 PM FLAKE MILL[employer] [facility] [address] [place] [address] Denise Woodson Ra, EMPLOYMENT APPEALS EXAMINER UI DEVELOPER DESIGNER [address] [place] [address] 08/07/2024 1:00 PM FLAKE MILL[employer] WHE[employer] OATS Appointment [facility] [address] [facility] [address] [place] [address] Danna Cardenas PA-C 6405 [place] [address] 08/10/2024 12:30 PM [employer] Virtual Visit [facility] Neuropsychology [address] [place] [phone] Robin Zepeda MD [address] [place] [address] [id number] [place] [address] 08/17/2024 12:30 PM [employer] Office Visit [facility] Neuropsychology [address] [phone] Robin Zepeda MD [address] [place] [address] [id number] [place] [address] Tulio Ogden, PhD [address] [address] 09/04/2024 11:00 AM [employer] [facility] [address] [place] [phone] Denise Woodson Ra, EMPLOYMENT APPEALS EXAMINER UI DEVELOPER DESIGNER [address] [place], [place] [id number] 09/18/2024 1:00 PM [employer] [facility] [address] [place] [address] Denise Woodson Ra, EMPLOYMENT APPEALS EXAMINER UI DEVELOPER DESIGNER [address] [place], [place] [id number] 09/29/2024 9:00 AM FLAKE MILL[employer] OATS Virtual Visit [facility] Neurology Clinic [address] [phone] Randy Maradiaga, [address] [place] [address] 10/09/2024 1:20 PM FLAKE MILL[employer] WHE[employer] O[employer] Office Visit [facility] Heart [place] 399275 [facility] [address] [place] [phone] Danna Cardenas PA-C [address] [place] [address] 10/30/2024 4:00 PM FLAKE MILL[employer] WHEAT [employer] OATS Virtual Visit [facility] Vascular Clinic [place] [address] [place] [phone] Lisa Zambrano MD [address] [place] [address] 12/29/2024 12:45 PM CDT Office Visit [facility] [address] [place] [address] [address] [phone] Fabi Coates MD [address] [place] [address] 12/29/2024 1:45 PM CDT Office Visit [facility] [address] [place] [address] [address] [phone] Fabi Coates MD [address] [place] [address] 960335 06/01/2025 11:15 AM CDT Appointment [facility] [address] [facility] [address] [place] [phone] Robin Zepeda MD [address] [place] [address] 06/04/2025 11:00 AM CDT Office Visit [facility] Neurosurgery [address] 3rd [place] [phone] Robin Zepeda MD [address] [place] [address] Usha Simon APRN [address] [place] [address] documented as of this encounter Goals Goal [...] Mental Health weekly - PT, OT and ELEVATOR INSTALLER, continuing through [facility] [place]: - Continue following up with PCP: 09/04/2024 - Vascular Dr. Zambrano 05/01/24 - follow up recommended in 6 months: 11/11/24 TBD #[phone]. - call independently - MTM 05/25/2024, completed - Neurosurgery Dr. eZpeda, following up with SUPERVISOR FABRICATION: 06/04/2025 11:00 AM (Arrive by 10:45 AM) [...] clinic with 24/7 after hours services available. Ceo And President will remain available as needed. documented as of this encounter Visit Diagnoses Not on filedocumented in this encounter Additional Health Concerns Active Problems Noted Date Diagnosed Date Increased risk of re-admission 02/18/2024 Assessment Noted Time PHQ-9 Depression Total Score: 5 03/17/20 24 9:45 AM CDT documented as of this encounter Care Teams Clinical Lab Scientist Relationship Specialty Start Date End Date Winston Villatoro OD [facility] [address] [facility] [address] [place] [address] PCP - Ophthalmology Ophthalmology 02/11/13 Denise Woodson Ra, APRN UI DEVELOPER DESIGNER [address] [place] [address] PCP - General Family Practice 09/21/20 Denise Woodson Ra, APRN UI DEVELOPER DESIGNER [address] [place] [address] Assigned PCP 07/17/20 Usha Simon APRN UI DEVELOPER DESIGNER [address] [facility]2121[place], [place] [phone] Nurse Practitioner Neurological Surgery 01/24/24 Dangelo Salinas MD [address] [place] [address] Neurology 01/27/24 Anastasia Stearns, RN Lead Ceo And President 02/06/24 Germaine Lopez, W Community Health Worker Primary Care - CC 02/18/24 Lisa Zambrano MD [address] [facility] [address] [place] 467885 Assigned Heart and Vascular Provider 05/08/24 07/07/24 Raul Hoyos MD 909 [facility]2121[place], [place] 116235 Assigned Neuroscience Provider 05/08/24 07/07/24 Joya Lira [facility] [address] [place] [address] Pharmacist Pharmacist 05/25/24 Joya Lira [facility] [address] [place] [address] Assigned MTM Pharmacist 06/08/24 Fabi Coates MD [address] [place] [address] 75 [place] [address] Genetics, Clinical 06/18/24 Robin Zepeda MD [address] [place] [address] [address] Assigned Neuroscience Provider 07/08/24 Danna Cardenas PA-C 6405 [place] [address] Assigned Heart and Vascular Provider 07/08/24 Felicita Desai, RN Lead Ceo And President 07/14/24 documented as of this encounter
--- OUTSIDE RECORDS SUMMARY | 2024-07-16 13:53 | XMS_ITS | Encounter Summary ---
Author Organization [facility] Address [address] [place] [address] Care Team Providers Care Film Processing Shift Supervisor Name Role Phone Winston Villatoro Se OD Unavailable [phone] Denise Woodson Ra, APRN HOMICIDE DETECTIVE Unavailable + [phone] Denise Woodson Ra, APRN HOMICIDE DETECTIVE Primary Care Provid er Usha Simon APRN HOMICIDE DETECTIVE Unavailable Dangelo Salinas MD Unavailable Anastasia Stearns RN Unavailable Germaine Lopez CHW Unavailable [phone] Lisa Zambrano MD Unavailable Raul Hoyos MD Unavailable [phone] Joya Lira [facility] Unavailable [phone] Joya Lira [facility] Unavailable [phone] Fabi Coates MD Unavailable [phone] Robin Zepeda MD Unavailable [phone] Danna Cardenas PA-C Unavailable [phone] Felicita Desai RN Unavailable Unavailab le Encounter Details Date Type Department Care Team (Late st Contact Info) Description 05/27/2024 [facility] Medical Advice [facility] Epilepsy [place] [address] [facility], [address] [place] [phone] Rohit Barcenas MD [address] [facility] 295 [place] [address] Social History Tobacco Use Types Packs/Day Years [...] How often do you attend methodist or restorationism serv ices? 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 Not on file Not on file Not on file Not on file Not on file Not on file documented as of this encounter Plan of Treatment Upcoming Encounters Date Type Department Care Team (Late st Contact Info) Description 07/20/2024 12:00 PM MAST MAKER Virtual Visit [address] [phone] Denise Woodson Ra, WEED SPRAYER HOMICIDE DETECTIVE [address] [place] [address] 07/30/2024 8:30 AM MAST MAKER Virtual Visit [facility] Neurology Clinic [address] [place] [phone] Randy Maradiaga DO [address] [place] [address] 08/04/2024 12:00 PM MAST MAKER Virtual Visit [facility] Mental Health and Addiction Clinic [address] [place] [phone] Arthur Salas[address] [place] [address] 08/04/2024 3:30 PM MAST MAKER Virtual Visit [facility] [address] [place] [phone] Denise Woodson Ra, WEED SPRAYER HOMICIDE DETECTIVE [address] [place] [address] 08/07/2024 1:00 PM MAST MAKER Appointment [facility] Heart Care [address] [facility] [address] [place] [phone] Danna Cardenas PA-C 6405 [place], [place] 6[address]355 08/10/2024 12:30 PM MAST MAKER Virtual Visit [facility] Neuropsychology [place] [address] [place] [address] 3rd [place] [address] Robin Zepeda MD [address] [place] [address] [id number] [place] [address] 08/17/2024 12:30 PM MAST MAKER Office Visit [facility] Neuropsychology [address] [place] [phone] Robin Zepeda MD [address] [place] [address] [id number] [place] [address] Tulio Ogden, PhD [address] 145845 09/04/2024 11:00 AM MAST MAKER Office Visit [facility] [address] [place] [phone] Denise Woodson Ra, WEED SPRAYER HOMICIDE DETECTIVE [address] [place], [place] [phone] 09/18/2024 1:00 PM MAST MAKER Office Visit [facility] [address] [place] [phone] Denise Woodson Ra, WEED SPRAYER HOMICIDE DETECTIVE [address] [place], [place] [phone] 09/29/2024 9:00 AM MAST MAKER Virtual Visit [facility] Neurology [address] [phone] Randy Maradiaga DO [address] [place] [address] 10/09/2024 1:20 PM MAST MAKER Office Visit [facility] Heart [place] [address] [facility] [address] [place] [phone] Danna Cardenas PA-C [address] [place] [address] 10/30/2024 4:00 PM MAST MAKER Virtual Visit [facility] Vascular Clinic [place] [address] [place] [phone] Lisa Zambrano MD [address] [place] [address] 12/29/2024 12:45 PM CDT Office Visit [facility] [address] [place] [address] Ave [address] [phone] Fabi Coates MD [address] [place] [address] 736005 12/29/2024 1:45 PM CDT Office Visit [facility] [address] [place] [address] Ave [address] [phone] Fabi Coates MD [address] [place] [address] 06/01/2025 11:15 AM CDT Appointment [facility] [address] [facility] [address] [place] [phone] Robin Zepeda MD [address] [place] [address] 895145 06/04/2025 11:00 AM CDT Office Visit [facility] Neurosurgery [address] [place] [phone] Robin Zepeda MD [address] [place] [address] 229685 Usha Simon APRN [address] [address] documented as of this encounter Goals Goal [...] Mental Health weekly - PT, OT and MILLWRIGHT SUPERVISOR, continuing through [facility] [place]: - Continue following up with PCP: 09/04/2024 - Vascular Dr. Zambrano 05/01/24 - follow up recommended in 6 months: 11/11/24 TBD #[phone]. - call independently - MTM 05/25/2024, completed - Neurosurgery Dr. Zepeda, following up with LEVI MAKER: 06/04/2025 11:00 AM (Arrive by 10:45 AM) [...] clinic with 24/7 after hours services available. Registered Clinical Dietitian will remain available as needed. documented as of this encounter Visit Diagnoses Not on filedocumented in this encounter Additional Health Concerns Active Problems Noted Date Diagnosed Date Increased risk of re-admission 02/18/2024 Assessment Noted Time PHQ-9 Depression Total Score: 5 03/17/20 24 9:45 AM CDT documented as of this encounter Care Teams Film Processing Shift Supervisor Relationship Specialty Start Date End Date Winston Villatoro OD [facility] [address] [facility] [address] [place] [address] PCP - Ophthalmology Ophthalmology 02/11/13 Denise Woodson Ra, APRN HOMICIDE DETECTIVE [address] [place] [address] PCP - General Family Practice 09/21/20 Denise Woodson Ra, APRN HOMICIDE DETECTIVE [address] [place], [place] [phone] Assigned PCP 07/17/20 Usha Simon APRN HOMICIDE DETECTIVE 909 [facility]2121[place], [place] 67[address]25 Nurse Practitioner Neurological Surgery 01/24/24 Dangelo Salinas MD [address] [facility] [address] [place], [place] [phone] Neurology 01/27/24 Anastasia Stearns, RN Lead Registered Clinical Dietitian 02/06/24 Germaine Lopez, W Community Health Worker Primary Care - CC 02/18/24 Lisa Zambrano MD 6[address] [facility] [address] [place], [place] 011685 Assigned Heart and Vascular Provider 05/08/24 07/07/24 Raul Hoyos MD 909 [facility]2121[place], [place] [address] Assigned Neuroscience Provider 05/08/24 07/07/24 Joya Lira R[facility] [address] [place], [place] [phone] Pharmacist Pharmacist 05/25/24 Joya Lira [facility] [address] [place] [address] Assigned MTM Pharmacist 06/08/24 Fabi Coates MD [address] [facility] 75 [place] [address] Genetics, Clinical 06/18/24 Robin Zepeda MD 909 [facility]2121[place], [place] [address] Assigned Neuroscience Provider 07/08/24 Danna Cardenas PA-C 6405 [place] [address] Assigned Heart and Vascular Provider 07/08/24 Felicita Desai, RN Lead Registered Clinical Dietitian 07/14/24 documented as of this encounter
--- OUTSIDE RECORDS SUMMARY | 2024-07-16 13:53 | XMS_ITS | Encounter Summary ---
Author Organization [facility] Address [address] [place] [address] Care Team Providers Care Chief Lock Tender Operator Name Role Phone Winston Villatoro Se OD Unavailable [phone] Denise Woodson Ra, APRN CHEMICAL OPERATIONS AND TRAINING Unavailable + [phone] Denise Woodson Ra, APRN CHEMICAL OPERATIONS AND TRAINING Primary Care Provid er Usha Simon APRN CHEMICAL OPERATIONS AND TRAINING Unavailable Dangelo Salinas MD Unavailable Anastasia Stearns RN Unavailable Germaine Lopez CHW Unavailable Lisa Zambrano MD Unavailable [phone] Raul Hoyos MD Unavailable Joya Lira [facility] Unavailable [phone] Reason for Referral * Diagnostic Imaging MRI (Routine) - Authorized Specialty Diagnoses / Procedures Referred By Contac t Referred To Contact Radiology. Diagnoses Dural arteriovenous fistula Cerebrovascular accident (CVA), unspecified mechanism (H) Procedures MRA Brain ([place]) w/o Contrast Robin Zepeda MD [address] [facility] [id number] [place] [address] Phone: tel: fax: Referral ID Status Reason Start Date Expiration Date V isits Requested Visits Authorized [id number] Authorized 06/02/2024 06/02/2025 1 1 * Mental Health Outpatient (Routine: Next available opening) - Pending Review Specialty Diagnoses / Procedures Referred By Nila shah Referred To Contact Neuropsychology Diagnoses Dural arteriovenous fistula Cerebrovascular accident (CVA), unspecified mechanism (H) Robin Zepeda MD [address] [place] [address] [id number] [address] Phone: tel: fax: Referral ID Status Reason Start Date Expiration Date V isits Requested Visits Authorized [id number] Pending Review 06/02/2024 06/02/2025 1 1 Question Answer Reason for Referral: Other (Be as specific as possible) My Clinical Question Is: Post stroke Cognitive decline Scheduling Instructions: [facility] will call you to coordinate your care as prescribed by the provider. If you don? t hear from a sales and service representative within 2 business days, please call . Comments Please be aware that coverage of these services is subject to the terms and limitations of your health insurance plan. Call member services at your health plan with any benefit or coverage questions. [employer] [facility] will call you to coordinate your care as prescribed by the provider. If you don? t hear from a sales and service representative within 2 business days, please call . Reason for Visit * Reason Comments New Patient * Consultation (Routine: Next available opening) - Pending Review Specialty Diagnoses / Procedures Referred By Nila shah Referred To Contact Diagnoses Dural arteriovenous fistula History of seizure History of stroke Pain of right upper extremity Stevo Islas MD [address] [place] [address] Phone: tel: fax: Referral ID Status Reason Start Date Expiration Date V isits Requested Visits Authorized [id number] Pending Review 05/16/2024 05/16/2025 1 1 Encounter Details Date Type Department Care Team (Latest Contact Info) Description 06/02/2024 2:40 PM CDT Office Visit [facility] [address] 3rd [place] [address] Robin Zepeda MD [address] [place] [address] [id number] [place] [address] Dural arteriovenous fistula (Primary Dx); Cerebrovascular accident [...] How often do you attend restoration or rastafarian serv ices? 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 Not on file Not on file Not on file Not on file Not on file Not on file Not on file documented as of this encounter Last Filed Vital Signs Vital Sign Reading Time Taken Comments Blood Pressure 133/84 06/02/2024 2:29 PM CDT Pulse 81 06/02/2024 2:26 PM CDT Temperature - - Respiratory Rate 16 06/02/2024 2:26 PM CDT Oxygen Saturation 99% 06/02/2024 2:26 PM CDT Inhaled Oxygen Concentration - - Weight 96.9 kg (213 lb 11.2 oz) 06/02/2024 2:26 PM CDT Height - - Body Mass Index 32.02 05/26/2024 8:23 AM CDT documented in this encounter Patient Instructions * Patient Instructions* Alessandra Pereira RN - 06/02/2024 2:40 PM CDT Referral to Neuro Psychology , you will get called for an appointment Follow up with Dr Zepeda in 1 year with MRA Brain prior. 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 She returns to Cerebrovascular clinic for follow up and to discuss progressive symptoms. With regard to the fistula, she has continued to have intermittent, non- disabling, left-sided pulsatile tinnitus, and a single episode of right-sided symptoms. Currently, she is asymptomatic. This fistula is essentially low to no risk for cerebrovascular complications (venous infarct, cerebral edema, seizure, ICH). We discussed the treatment strategy of low risk fistulas- that treatment is to target symptoms (namely pulsatile tinnitus), and if these are non- disabling, treatment is not necessary. Due to her known and demonstrated exceedingly high risk for further endovascular interventions, wewould psychologist counseling her strongly to exhaust all alternative options prior to intervention. As she is currently asymptomatic and the tinnitus is relatively rare and non-bothersome, we will certainly not intervene at this time. We will repeat an MRA of the brain in 1 year to follow the status of this lesion, non-invasively. Since the procedure-related stroke, she reports headaches, brain fog, fatigue, slowed processing ofreceptive language, gait instability, near-falls due to feeling propelled backward, blurred vision due to ocular fatigue, variable pressure/muffled hearing in the left ear, chest pain, shortness of breath with exertion, and multiple other symptoms. She has undergone repeat MRI of the brain 6 times.None of these repeat images have demonstrated new pathology. There has been some expected evolutionof the known infarcts. She is concerned that these symptoms possibly represent progression of thefistula. We spent a long time discussing the reassuring features of her presentation- that her brain MRIs have not progressed in any respect that would suggest progression of the fistula. If the fistula had progressed, we would expect cerebral edema, venous infarcts, and/or hemorrhage. These are not seen. Symptomatically, the tinnitus would be worse. It is not. We would expect fixed neurologic deficits. In my interpretation of her description of her symptoms, I think she describes a multifactorial problem Post-stroke disability- the majority of her infarcts are in her dominant hemisphere, so language processing issues are not surprising. Recurrence and/or backsliding of symptoms can occur due to systemic stressors, or from simply over-exerting herself on a single day. Her description of cognitive processing slowing can be accounted for by her bihemispheric infarcts. She is only 4 months post-stroke, so day to day fluctuations are not at all surprising. She was previously high functioning and very aware of any deficits that disrupt her ability to resume her typical IADLs and work. Concern for seizures as a result of stroke- she describes multiple episodes which may represent non-convulsive seizures. If she is having focal seizures, these would certainly contribute to cognitive, language, and fatigue related concerns. Lizy-Danlos related concerns. She has seen Vascular Medicine and has been referred to Genetics tobetter characterize her syndrome, and what cardiopulmonary and/or orthopedic sequelae and/or risks may affect her currently, or in the future. Her susceptibility to vascular injury has been clearly demonstrated by the strokes caused by an otherwise low risk diagnostic procedure. I am not able to fully characterize what organic pathology can account for her systemic/non-neurologic symptoms, but I suspect they are present. I appreciate Dr. Zambrano and the Genetics service addressing these concerns. Functional overlay- non-physiologic concerns have been described by multiple prior providers. I agree with this suspicion, though I do not think it accounts for all of her concerns. She already has a referral and an appointment with Dr. Maradiaga in the General Neurology clinic. I think he will be a good source of guidance related to headaches, seizures, and any functional symptoms. Because of her overarching cognitive symptoms, I have placed a referral to the Clinical Neuropsychology group for formal neuropsychometric testing, in the hopes that this may be completed prior to that encounter, or at least that it will hasten her scheduling. She is on keppra for seizures, and will continue this, at least until she sees Dr. Maradiaga. Finally, she has active PT and OT referrals and will continue working with them prior to that visit. We will see her back again to address any progress or change with regard to the fistula, after the MRA, in 1 year. The patient was discussed with the attending, Dr. Zepeda. Dahlia Joyce MD Endovascular Surgical Neuroradiology Fellow, PGY-7 [id number] documented in this encounter Nursing Notes * Britney Nicole - 06/02/2024 2:40 PM CDT Chief Complaint Patient presents with New Patient BP 133/84 (BP Location: Left arm, Patient Position: Sitting, Cuff Size: Adult Regular) Pulse 81 Resp 16 Wt 96.9 kg (213 lb 11.2 oz) LMP 01/07/2006 SpO2 99% BMI 32.02 kg/m?? BRITNEY NICOLE documented in this encounter Plan of Treatment Upcoming Encounters Date Type Department Care Team (Late st Contact Info) Description 07/20/2024 12:00 PM TELE RN Virtual Visit [facility] [id number] [place] [phone] Denise Woodson Ra, MATERIAL DAMAGE ADJUSTER CHEMICAL OPERATIONS AND TRAINING [address] [place] [address] 07/30/2024 8:30 AM TELE RN Virtual Visit [facility] [address] [place] [phone] Randy Maradiaga DO [address] [place] [address] 08/04/2024 12:00 PM TELE RN Virtual Visit [facility] [address] [place] [address] Arthur Salas[address] [place] [address] 08/04/2024 3:30 PM TELE RN Virtual [facility] [address] [place] [address] Denise Woodson Ra, MATERIAL DAMAGE ADJUSTER CHEMICAL OPERATIONS AND TRAINING [address] [place] [address] 08/07/2024 1:00 PM TELE RN Appointment [facility] [address] [facility] [address] [place] [phone] Danna Cardenas, PA-C [address] [place] [address] 08/10/2024 12:30 PM TELE RN Virtual Visit [facility] Neuropsychology [address] [place] [phone] Robin Zepeda MD [address] [place] [address] [id number] [place] [address] 08/17/2024 12:30 PM TELE RN Office Visit [facility] Neuropsychology [address] [phone] Robin Zepeda MD [address] [place] [address] [id number] [place], [place] [phone] Tulio Ogden, PhD [address] [id number] 09/04/2024 11:00 AM TELE RN Office Visit [facility] [address] [place] [address] Denise Woodson Ra, MATERIAL DAMAGE ADJUSTER CHEMICAL OPERATIONS AND TRAINING [address] [place], [place] [id number] 09/18/2024 1:00 PM TELE RN Office Visit [facility] [address] [place] [phone] Denise Woodson Ra, MATERIAL DAMAGE ADJUSTER CHEMICAL OPERATIONS AND TRAINING [address] [place], [place] [id number] 09/29/2024 9:00 AM TELE RN Virtual Visit [facility] [address] [phone] Randy Maradiaga, [address] [place] [id number] 10/09/2024 1:20 PM TELE RN Office Visit [facility] [address] [facility] [address] [place] [phone] Danna Cardenas PA-C [address] [place], [place] [phone] 10/30/2024 4:00 PM TELE RN Virtual Visit [facility] [place] [address] [place] [phone] Lisa Zambrano MD [address] [place] [address] 12/29/2024 12:45 PM CDT Office Visit [facility] [address] [place] [address] [facility] [address] [phone] Fabi Coates MD [address] [place] [address] [id number] 12/29/2024 1:45 PM CDT Office Visit [facility] [address] [place] [address] [address] [facility] [address] [phone] Fabi Coates MD [address] [place] [address] [id number] 06/01/2025 11:15 AM CDT Appointment [facility] [address] [facility] [address] [place] [phone] Robin Zepeda MD [address] [place] [address] 06/04/2025 11:00 AM CDT Office Visit [facility] Neurosurgery [address] [place] [phone] Robin Zepeda MD [address] [place] [place] [id number] Usha Simon APRN [address] [address] Scheduled Orders Name Type Priority Associated Diagnoses Orde r Schedule MRA Brain ([place]) w/o Contrast Imaging Routine Dural arteriovenous fistula Cerebrovascular accident (CVA), unspecified mechanism (H) Expected: 06/02/2025 (Approximate), Expires: 06/02/2025 Scheduled Referrals Name Type Priority Associated Diagnoses Orde r Schedule Adult Neuropsychology Plant Science Professor Referral Referral Routine: Next available opening Dural arteriovenous fistula Cerebrovascular accident (CVA), unspecified mechanism (H) Expected: 07/02/2024 (Approximate), Expires: 06/02/2025 documented as of this encounter Goals Goal [...] Mental Health weekly - PT, OT and TEACHER, continuing through [facility]: - Continue following up with PCP: 09/04/2024 - Vascular Dr. Zambrano 05/01/24 - follow up recommended in 6 months: 11/11/24 TBD #[phone]. - call independently - MTM 05/25/2024, completed - Neurosurgery Dr. Zepeda, following up with MARBLE INSTALLER SUPERVISOR: 06/04/2025 11:00 AM (Arrive by 10:45 [...] clinic with 24/ after hours services available. Planning Lead will remain available as needed. documented as of this encounter Visit Diagnoses Diagnosis Dural arteriovenous fistula- Primary Cerebral aneurysm, nonruptured Cerebrovascular accident (CVA), unspecified mechanism (H) documented in this encounter Additional Health Concerns Active Problems Noted Date Diagnosed Date Increased risk of re-admission 02/18/2024 Assessment Noted Time PHQ-9 Depression Total Score: 5 03/17/20 24 9:45 AM CDT documented as of this encounter Care Teams Chief Lock Tender Operator Relationship Specialty Start Date End Date Shauna Winston SaezAMELIE [facility] [place] [address] [facility] [address] [place] [address] PCP - Ophthalmology Ophthalmology 02/11/13 Denise Woodson Ra, APRN CHEMICAL OPERATIONS AND TRAINING [address] [place] [address] PCP - General Family Practice 09/21/20 Denise Woodson Ra, APRN CHEMICAL OPERATIONS AND TRAINING [address] [facility] [address] Assigned PCP 07/17/20 Usha Simon APRN CHEMICAL OPERATIONS AND TRAINING [address] [facility], [place] [address] Nurse Practitioner Neurological Surgery 01/24/24 Dangelo Salinas MD [address] [facility] [address] [place], [place] [phone] Neurology 01/27/24 Anastasia Stearns, RN Lead Planning Lead 02/06/24 Germaine Lopez, W Community Health Worker Primary Care - CC 02/18/24 Lisa Zambrano MD [address] [place] [address] Assigned Heart and Vascular Provider 05/08/24 07/07/24 Raul Hoyos MD [address] [facility] [id number] [place] [address] Assigned Neuroscience Provider 05/08/24 07/07/24 Joya Lira RPH [address] [place] [address] Pharmacist Pharmacist 05/25/24 documented as of this encounter
--- OUTSIDE RECORDS SUMMARY | 2024-07-16 13:53 | XMS_ITS | Encounter Summary ---
Author Organization [place] Address [address] [place] [address] Care Team Providers Care Diving Fisher Name Role Phone Winston Villatoro OD Unavailable [phone] Denise Woodson Ra, APRN ENVIRONMENTAL EMERGENCIES PLANNER Unavailable [phone] Denise Woodson Ra, APRN ENVIRONMENTAL EMERGENCIES PLANNER Primary Care Provid er Usha Simon APRN ENVIRONMENTAL EMERGENCIES PLANNER Unavailable Dangelo Salinas MD Unavailable Anastasia Stearns RN Unavailable Germaine Lopez CHW Unavailable [phone] Lisa Zambrano MD Unavailable [phone] Raul Hoyos MD Unavailable Joya Lira [facility] Unavailable [phone] Reason for Visit * Reason Comments Hospital F/U Encounter Details Date Type Department Care Team (Late st Contact Info) Description 05/26/2024 8:30 AM CDT Office Visit [facility] [address] [place] [address] Denise Woodson Ra, APRN ENVIRONMENTAL EMERGENCIES PLANNER [address] [place] [address] Chest pain, unspecified type (Primary Dx); Dural arteriovenous fistula; Muscle weakness (generalized); Hemiparesis of right dominant side as late effect of cerebrovascular disease, unspecified cerebrovascular disease type (H); Chronic obstructive pulmonary disease without exacerbation (H); Mild recurrent major depression (H) Social History Tobacco Use Types Packs/Day [...] How often do you attend episcopal or moravian serv ices? 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 Not on file Not on file Not on file Not on file Not on file Not on file documented as of this encounter Last Filed Vital Signs Vital Sign Reading Time Taken Comments Blood Pressure 117/81 05/26/2024 8:23 AM CDT Pulse 70 05/26/2024 8:23 AM CDT Temperature 36.4 ??C (97.5 ??F) 05/26/2024 8:23 AM CD T Respiratory Rate 16 05/26/2024 8:23 AM CDT Oxygen Saturation 98% 05/26/2024 8:23 AM CDT Inhaled Oxygen Concentration - - Weight 98.2 kg (216 lb 8 oz) 05/26/2024 8:23 AM CDT Height 174 cm (5' 8.5) 05/26/2024 8:23 AM CDT Body Mass Index 32.44 05/26/2024 8:23 AM CDT documented in this encounter Progress Notes * Denise Woodson Ra, [place] ENVIRONMENTAL EMERGENCIES PLANNER - 05/26/2024 8:30 AM CDT Assessment & Plan Chest pain, unspecified type Resolved. Monitor. Dural arteriovenous fistula Following with neurology. Symptomatic. Continue with leave from work. Muscle weakness (generalized) Stable/improved. Hemiparesis of right dominant side as late effect of cerebrovascular disease, unspecified cerebrovascular disease type (H) Following with neurology. Monitor. Chronic obstructive pulmonary disease without exacerbation (H) Previous care through outside clinic. Mild recurrent major depression (H24) Symptomatic, stable. MED REC REQUIRED Post Medication Reconciliation Status: BMI Estimated body mass index is 32.44 kg/m?? as calculated from the following: Height as of this encounter: 1.74 m (5' 8.5). Weight as of this encounter: 98.2 kg (216 lb 8 oz). Juan M Rondon is a 48 year old, presenting for the following health issues: Hospital F/U 05/26/2024 8:22 AM Additional Questions Roomed by Keisha Tyson MA Accompanied by self 05/26/2024 8:22 AM Patient Reported Additional Medications Patient reports taking the following new medications none HPI Hospital Follow-up Visit: Hospital/Detention/IP Rehab Facility: [facility] Date of Admission: 05/14/24 Date of Discharge: 05/19/24 Reason(s) for Admission: chest pain, headaches and blur vision Was the patient in the ICU or did the patient experience delirium during hospitalization? No Do you have any other stressors you would like to discuss with your provider? No Problems taking medications regularly: None Medication changes since discharge: None Problems adhering to non-medication therapy: None Summary of hospitalization: [facility] discharge summary reviewed Diagnostic Tests/Treatments reviewed. Follow up needed: neurology Other Healthcare Providers Involved in Patient???s Care: neurosurgery Update since discharge: stable. Plan of care communicated with patient Recent hospitalization due to chest pain/pressure. L sided weakness and headache. Lexiscan completed with no inducible myocardial ischemia with normal LV function. Planned for CT angio if symptoms persist. MRI/MRA completed due to L sided weakness, no new infarcts found. Neurosurgery follow up planned. Continues to experience headaches, fatigue, slow processing. Review of Systems Constitutional, HEENT, cardiovascular, pulmonary, gi and gu systems are negative, except as otherwise noted. Objective BP 117/81 (BP Location: Right arm, Patient Position: Sitting, Cuff Size: Adult Large) Pulse 70 Temp 97.5 ??F (36.4 ??C) (Oral) Resp 16 Ht 1.74 m (5' 8.5) Wt 98.2 kg (216 lb 8 oz) LMP 01/07/2006 SpO2 98% BMI 32.44 kg/m?? Body mass index is 32.44 kg/m??. Physical Exam GENERAL: alert and no distress NECK: no adenopathy, no asymmetry, masses, or scars RESP: lungs clear to auscultation - no rales, rhonchi or wheezes CV: regular rate and rhythm, normal S1 S2, no S3 or S4, no murmur, click or rub, no peripheral edema PSYCH: mentation appears normal, affect normal/bright Signed Electronically by: Denise Woodson APRN CNP documented in this encounter Plan of Treatment Upcoming Encounters Date Type Department Care Team (Late st Contact Info) Description 07/20/2024 12:00 PM COMMUNITY DEVELOPMENT SPECIALIST Virtual Visit [facility] [address] [place] [phone] Denise Woodson Ra, APRN ENVIRONMENTAL EMERGENCIES PLANNER [address] [place] [address] 07/30/2024 8:30 AM COMMUNITY DEVELOPMENT SPECIALIST Virtual Visit [facility] Neu[facility] [address] 3rd [place] [address] Randy Maradiaga, [address] [place] [address] 08/04/2024 12:00 PM COMMUNITY DEVELOPMENT SPECIALIST Virtual Visit [facility] [place] [address] [place] [address] Arthur Salas, [facility] [address] [place] [address] 08/04/2024 3:30 PM COMMUNITY DEVELOPMENT SPECIALIST Virtual Visit [facility] [address] [place] [phone] Denise Woodson Ra, ENERGY DIRECTOR [facility] [address] [place], [place] [phone] 08/07/2024 1:00 PM COMMUNITY DEVELOPMENT SPECIALIST Appointment [facility] Care [address] [facility] [address] [place] [phone] Danna Cardenas PA-C 6405 [place], [place] [address] 08/10/2024 12:30 PM COMMUNITY DEVELOPMENT SPECIALIST Virtual Visit [facility] Neuropsychology [address] [phone] Robin Zepeda MD [address] [place] [address] 08/17/2024 12:30 PM COMMUNITY DEVELOPMENT SPECIALIST Office Visit [facility] Neuropsychology [address] [phone] Robin Zepeda MD [address] [place] [address] Tulio Ogden, PhD [address] [address] 09/04/2024 11:00 AM COMMUNITY DEVELOPMENT SPECIALIST Office Visit [facility] [address] [place] [phone] Denise Woodson Ra, ENERGY DIRECTOR ENVIRONMENTAL EMERGENCIES PLANNER [address] [place], [place] [phone] 09/18/2024 1:00 PM COMMUNITY DEVELOPMENT SPECIALIST Office Visit [facility] [address] [place] [phone] Denise Woodson Ra, ENERGY DIRECTOR ENVIRONMENTAL EMERGENCIES PLANNER [address] [place], [place] [phone] 09/29/2024 9:00 AM COMMUNITY DEVELOPMENT SPECIALIST Virtual Visit [facility] [address] [phone] Randy Maradiaga, [address] [address] 10/09/2024 1:20 PM COMMUNITY DEVELOPMENT SPECIALIST Office Visit [facility] Heart [place] [address] [place] [phone] Danna Cardenas PA-C [address] [place] [address] 10/30/2024 4:00 PM COMMUNITY DEVELOPMENT SPECIALIST Virtual Visit [facility] Vascular [place] [address] Jonathon Ceron [address] [place] [phone] Lisa Zambrano MD [address] [facility] [place] [address] 12/29/2024 12:45 PM CDT Office Visit [facility] [address] [place], [place] [address]e Explorer [address] [phone] Fabi Coates MD [address] [address] 12/29/2024 1:45 PM CDT Office Visit [facility]ty [facility] [address] [place], [place] [address] Explorer [address] [phone] Fabi Coates MD [address] [address] 06/01/2025 11:15 AM CDT Appointment [facility] [address] [facility] [address] [place] [phone] Robin Zepeda MD [address] [place] [address] 06/04/2025 11:00 AM CDT Office Visit [facility] Neurosurgery [address] 3rd [place] [phone] Robin Zepeda MD [address] [place] [address] Usha Simon APRN CNP [address] [place] [address] documented as of this encounter Goals Goal [...] Health weekly - PT, OT and ELECTRIC MULE DRIVER, continuing through [facility] [place]: - Continue following up with PCP: 09/04/2024 - Vascular Dr. Zambrano 05/01/24 - follow up recommended in 6 months: 11/11/24 TBD #[phone]. - call independently - MTM 05/25/2024, completed - Neurosurgery Dr. Zepeda, following up with RECYCLE COORDINATOR: 06/04/2025 11:00 AM (Arrive by 10:45 AM) Usha Simon APRN ENVIRONMENTAL EMERGENCIES PLANNER 2. I will take my medications as prescribed. 3. I will discuss, review, schedule and complete recommended overdue health maintenance with my Primary Care Provider. 4. I will contact my care team with questions, concerns, support needs. I will use the clinic as a resource and I understand I can contact my clinic with / after hours services available. Flooring Sales Manager will remain available as needed. documented as of this encounter Visit Diagnoses Diagnosis Chest pain, unspecified type- Primary Dural arteriovenous fistula Cerebral aneurysm, nonruptured Muscle weakness (generalized) Hemiparesis of right dominant side as late effect of cerebrovascular disease, unspecified cerebrovascular disease type (H) Chronic obstructive pulmonary disease without exacerbation (H) Mild recurrent major depression (H) Major depressive disorder, recurrent episode, mild documented in this encounter Additional Health Concerns Active Problems Noted Date Diagnosed Date Increased risk of re-admission 02/18/2024 Assessment Noted Time PHQ-9 Depression Total Score: 5 03/17/20 24 9:45 AM CDT documented as of this encounter Care Teams Diving Fisher Relationship Specialty Start Date End Date Winston Villatoro OD [facility] [address] [place] [address] [address] [place] [address] PCP - Ophthalmology Ophthalmology 02/11/13 Denise Woodson Ra, ENERGY DIRECTOR ENVIRONMENTAL EMERGENCIES PLANNER [address] [place] [address] PCP - General Family Practice 09/21/20 Denise Woodson Ra, APRN ENVIRONMENTAL EMERGENCIES PLANNER [address] [address] [address] Assigned PCP 07/17/20 Usha Simon APRN ENVIRONMENTAL EMERGENCIES PLANNER [address] [address] Nurse Practitioner Neurological Surgery 01/24/24 Dangelo Salinas MD [address] [place] [address] Neurology 01/27/24 Anastasia Stearns, RN Lead Flooring Sales Manager 02/06/24 Germaine Lopez, [facility] Community Health Worker Primary Care - CC 02/18/24 Lisa Zambrano MD [address] [facility] [address] [place] [address] Assigned Heart and Vascular Provider 05/08/24 07/07/24 Raul Hoyos MD [address] [address] Assigned Neuroscience Provider 05/08/24 07/07/24 Joya Lira RPH [address] [address] Pharmacist Pharmacist 05/25/24 documented as of this encounter
--- OUTSIDE RECORDS SUMMARY | 2024-07-16 13:53 | XMS_ITS | Encounter Summary ---
Author Organization [facility] [place] Address [address] [place] [address] Care Team Providers Care Birthing Nurse Name Role Phone Winston Villatoro OD Unavailable [phone] Denise Woodson Ra, APRN SR COMMUNITY MANAGER Unavailable + [phone] Denise Woodson Ra, APRN SR COMMUNITY MANAGER Primary Care Provid er Usha Simon APRN SR COMMUNITY MANAGER Unavailable [phone] Dangelo Salinas MD Unavailable Anastasia Stearns RN Unavailable [phone] Germaine Lopez CHW Unavailable [phone] Lisa Zambrano MD Unavailable +- [phone] Raul Hoyos MD Unavailable Joya Lira [facility] Unavailable [phone] Encounter Details Date Type Department Care Team (Latest Contact Info) Description 05/26/2024 Travel Social History Tobacco Use Types Packs/Day [...] attend religion or mormon serv ices? 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 Not on file Not on file Not on file Not on file Not on file Not on file documented as of this encounter Plan of Treatment Upcoming Encounters Date Type Department Care Team (Late st Contact Info) Description 07/20/2024 12:00 PM GEOTHERMAL OPERATIONS ENGINEER Virtual Visit [facility] [address] [place] [address] Denise Woodson Ra, NUCLEAR CHEMISTRY TECHNICIAN [facility] [address] [place] [address] 07/30/2024 8:30 AM GEOTHERMAL OPERATIONS ENGINEER Virtual Visit [facility] Neurology Clinic [address] [place] [address] Randy Maradiaga, [address] [place] [address] 08/04/2024 12:00 PM GEOTHERMAL OPERATIONS ENGINEER Virtual Visit [facility] Mental Health and Addiction [address] [place] [address] Arthur Salas, [facility] [address] [place] [address] 08/04/2024 3:30 PM GEOTHERMAL OPERATIONS ENGINEER [facility] [address] [place] [phone] Denise Woodson Ra, NUCLEAR CHEMISTRY TECHNICIAN SR COMMUNITY MANAGER [address] [place] [address] 08/07/2024 1:00 PM GEOTHERMAL OPERATIONS ENGINEER Appointment [facility] Heart Care [address] [facility] [address] [place] [phone] Danna Cardenas PA-C 6405 [place] [address] 08/10/2024 12:30 PM GEOTHERMAL OPERATIONS ENGINEER Virtual Visit [facility] Neuropsychology [address] [phone] Robin Zepeda MD [address] [place] [address] 08/17/2024 12:30 PM GEOTHERMAL OPERATIONS ENGINEER Office Visit [facility] Neuropsychology [address] [phone] Robin Zepeda MD [address] [place] [address] Tulio Ogden, PhD [address] [address] 09/04/2024 11:00 AM GEOTHERMAL OPERATIONS ENGINEER Office Visit [facility] [address] [place] [phone] Denise Wodoson Ra, NUCLEAR CHEMISTRY TECHNICIAN SR COMMUNITY MANAGER [address] [place] [address] 09/18/2024 1:00 PM GEOTHERMAL OPERATIONS ENGINEER Office Visit [facility] [address] [place] [phone] Denise Woodson Ra, NUCLEAR CHEMISTRY TECHNICIAN SR COMMUNITY MANAGER [address] [place] [address] 09/29/2024 9:00 AM GEOTHERMAL OPERATIONS ENGINEER Virtual Visit [facility] Neurology [address] [phone] Randy Maradiaga, [address] [address] 10/09/2024 1:20 PM GEOTHERMAL OPERATIONS ENGINEER Office Visit [facility] Heart [place] [address] [facility] [address] [place] [phone] Danna Cardenas PA-C 6405 [place] [address] 10/30/2024 4:00 PM GEOTHERMAL OPERATIONS ENGINEER Virtual Visit [facility] Vascular [place] [address] [place] [phone] Lisa Zambrano MD [address] [place] [address] 12/29/2024 12:45 PM CDT Office Visit [facility] [address] Explorer [facility] [address],[place] [phone] Fabi Coates MD 420 [facility] 75 [place] [address] 12/29/2024 1:45 PM CDT Office Visit [facility] 2450 [facility] Explorer [facility] [address] [phone] Fabi Coates MD [address] [facility] 75 [place] [address] 06/01/2025 11:15 AM CDT Appointment [facility] [address] [place] [phone] Robin Zepeda MD [address] [place] [address] 06/04/2025 11:00 AM CDT Office Visit [facility] Neurosurgery Clinic [address] 3rd [place] [phone] Robin Zepeda MD [address] [place] [address] Usha Simon APRN [address] [address] documented as of this encounter Goals Goal [...] Mental Health weekly - PT, OT and PLANT PRODUCTION WORKER, continuing through [facility] [place]: - Continue following up with PCP: 09/04/2024 - Vascular Dr. Zambrano 05/01/24 - follow up recommended in 6 months: 11/11/24 TBD #[phone]. - call independently - MTM 05/25/2024, completed - Neurosurgery Dr. Zepeda, following up with RESTORATION TECHNICIAN: 06/04/2025 11:00 AM (Arrive by 10:45 [...] with 24/7 after hours services available. Wheel And Axle Inspector will remain available as needed. documented as of this encounter Visit Diagnoses Not on filedocumented in this encounter Additional Health Concerns Active Problems Noted Date Diagnosed Date Increased risk of re-admission 02/18/2024 Assessment Noted Time PHQ-9 Depression Total Score: 5 03/17/20 24 9:45 AM CDT documented as of this encounter Care Teams Birthing Nurse Relationship Specialty Start Date End Date Winston Villatoro OD [facility] [place] [address] [facility] [address] [place] [address] PCP - Ophthalmology Ophthalmology 02/11/13 Denise Woodson Ra, APRN SR COMMUNITY MANAGER [address] [address] [address] PCP - General Family Practice 09/21/20 Denise Woodson Ra, APRN CNP [address] [address] [address] Assigned PCP 07/17/20 Usha Simon APRN CNP [address] [place] [address] [id number] [place] [address] Nurse Practitioner Neurological Surgery 01/24/24 Dangelo Salinas MD [address] [place] [address] Neurology 01/27/24 Anastasia Stearns, RN Lead Wheel And Axle Inspector 02/06/24 Germaine Lopez, W Community Health Worker Primary Care - CC 02/18/24 Lisa Zambrano MD [address] [facility] [address] [place] [address] Assigned Heart and Vascular Provider 05/08/24 07/07/24 Raul Hoyos MD [address] [facility] [place] [address] Assigned Neuroscience Provider 05/08/24 07/07/24 Joya Lira [facility] [address] [place] [address] Pharmacist Pharmacist 05/25/24 documented as of this encounter
--- OUTSIDE RECORDS SUMMARY | 2024-07-16 13:54 | XMS_ITS | Encounter Summary ---
Author Organization [facility] Address [address] [place] [address] Care Team Providers Care It Desktop Support Specialist Name Role Phone Winston Villatoro Se OD Unavailable [phone] Denise Woodson Ra, APRN CHEMICAL INSTRUMENTATION OFFICER Unavailable + [phone] Denise Woodson Ra, APRN CHEMICAL INSTRUMENTATION OFFICER Primary Care Provid er Usha Simon APRN CHEMICAL INSTRUMENTATION OFFICER Unavailable [phone] Dangelo Salinas MD Unavailable Anastasia Stearns RN Unavailable Germaine Lopez Unavailable Lisa Zambrano MD Unavailable Raul Hoyos MD Unavailable Reason for Visit * Reason Onset Date Comments Clinic Care Coordination - Post Hospital 024 Post discharge phone call Encounter Details Date Type Department Care Team (Late st Contact Info) Description 05/21/2024 Telephone [facility] [address] [place] [address] Myriam Franks, RN Clinic Care Coordination - Post Hospital (Post discharge phone call) Social History Tobacco Use Types Packs/Day Years [...] How often do you attend tenriism or mandaen serv ices? 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 Hospital course complicated by L sided weakness (negative stroke work up) and recurrence of pulsatile tinnitus/pounding YANG in setting of AV fistula. PMH: ischemic stroke, bihemispheric due to procedural complication after cerebral angiogram and right-sided weakness and numbness, poststroke generalized tonic-clonic seizure, intermittent frontal headaches, left sigmoid dural AV fistula, pulsatile tinnitus, fibromyalgia, MONAE, insomnia, history of ASD repair, well-controlled asthma. 05/15/24: NM Lexiscan was negative for ischemia. If patient remains symptomatic in the outpatient setting could consider a CT coronary angiogram Pt was continued on ASA 162 mg po daily. Pt is scheduled for an OV on 06/26/24 at 1430 with MONICA Danna Cardenas at our [place] Office. Technical Services Analyst attempted to call pt for a cardiology post discharge phone call, but no answer. VM left to call back with any non emergent cardiac related questions. Reminder left of appt as scheduled above. Technical Services Analyst's phone number was provided. Edward Franks RN. documented in this encounter Plan of Treatment Upcoming Encounters Date Type Department Care Team (Late st Contact Info) Description 07/20/2024 12:00 PM PREPRESS STRIPPER Virtual Visit [facility] [address] [place] [phone] Denise Woodson Ra, FIELD PROFESSIONAL [facility] [address] [place] [address] 07/30/2024 8:30 AM PREPRESS STRIPPER Virtual Visit [facility] [address] [place] [phone] Randy Maradiaga, [address] [address] 08/04/2024 12:00 PM PREPRESS STRIPPER Virtual Visit [facility] [address] [place] [address] Arthur Salas, [address] [address] 08/04/2024 3:30 PM PREPRESS STRIPPER Virtual Visit [facility] [address] [place] [phone] Denise Woodson Ra, FIELD PROFESSIONAL CHEMICAL INSTRUMENTATION OFFICER [address] [facility] [place] [address] 08/07/2024 1:00 PM PREPRESS STRIPPER Appointment [facility] [address] [facility] [address] [place] [phone] Danna Cardenas PA-C 6405 [place] [address] 08/10/2024 12:30 PM PREPRESS STRIPPER Virtual Visit [facility] [address] [phone] Robin Zepeda MD [address] [place] [address] 08/17/2024 12:30 PM PREPRESS STRIPPER Office Visit [facility] [address] [phone] Robin Zepeda MD [address] [place] [address] 797505 Tulio Ogden, PhD [address] [address] 09/04/2024 11:00 AM PREPRESS STRIPPER [facility] [address] [place] [phone] Denise Woodson Ra, FIELD PROFESSIONAL CHEMICAL INSTRUMENTATION OFFICER [address] [place] [address] 09/18/2024 1:00 PM PREPRESS STRIPPER Office Visit [facility] [address] [place] [phone] Denise Woodson Ra, FIELD PROFESSIONAL CHEMICAL INSTRUMENTATION OFFICER [address] [place] [address] 09/29/2024 9:00 AM PREPRESS STRIPPER Virtual Visit [facility] [address] 3rd [place] [phone] Randy Maradiaga, [address] 7[address] 10/09/2024 1:20 PM PREPRESS STRIPPER Office Visit [facility] [address] [facility] [address] [place] [phone] Danna Cardenas PA-C [address] [place], [place] [address] 10/30/2024 4:00 PM PREPRESS STRIPPER Virtual Visit [facility] [place] [address] [place] [phone] Lisa Zambrano MD [address] [place], [place] [address] 12/29/2024 12:45 PM CDT Office Visit [facility] [address] [place], [place] [address]e Explorer [address] [phone] Fabi Coates MD [address] [place] [address] 548445 12/29/2024 1:45 PM CDT Office Visit [facility] [address] [place], [place] [address] Explorer [address] [phone] Fabi Coates MD [address] [place] [address] 06/01/2025 11:[address] [facility] [address] [place] [phone] Robin Zepeda MD [address] [place] [address] 847345 06/04/2025 11:00 AM CDT Office Visit [facility] [address] 3rd [place] [phone] Robin Zepeda MD [address] [place] [address] 085435 Usha Simon APRN CHEMICAL INSTRUMENTATION OFFICER [address] 783605 documented as of this encounter Goals Goal [...] Mental Health weekly - PT, OT and MECHANICAL PROJECT MANAGER, continuing through [facility] [place]: - Continue following up with PCP: 09/04/2024 - Vascular Dr. Zambrano 05/01/24 - follow up recommended in 6 months: 11/11/24 TBD #[phone]. - call independently - MTM 05/25/2024, completed - Neurosurgery Dr. Zepeda, following up with GALLERY OR MUSEUM TECHNICIAN: 06/04/2025 11:00 AM (Arrive by 10:45 [...] with 24/7 after hours services available. Customer Expert will remain available as needed. documented as of this encounter Visit Diagnoses Not on filedocumented in this encounter Additional Health Concerns Active Problems Noted Date Diagnosed Date Increased risk of re-admission 02/18/2024 Assessment Noted Time PHQ-9 Depression Total Score: 5 03/17/20 24 9:45 AM CDT documented as of this encounter Care Teams It Desktop Support Specialist Relationship Specialty Start Date End Date Winston Villatoro OD [facility] [address] [facility] [address] [place] [address] PCP - Ophthalmology Ophthalmology 02/11/13 Denise Woodson Ra, APRN CHEMICAL INSTRUMENTATION OFFICER [address] [facility] [address] PCP - General Family Practice 09/21/20 Denise Woodson Ra, APRN CHEMICAL INSTRUMENTATION OFFICER [address] [place] [address] Assigned PCP 07/17/20 Usha Simon APRN CHEMICAL INSTRUMENTATION OFFICER [address] [facility] [id number] [place] [address] Nurse Practitioner Neurological Surgery 01/24/24 Dangelo Salinas MD [address] [place] [address] Neurology 01/27/24 Anastasia Stearns, RN Lead Customer Expert 02/06/24 Germaine Lopez, CHW Community Health Worker Primary Care - CC 02/18/24 Lisa Zambrano MD [address] [place] [address] Assigned Heart and Vascular Provider 05/08/24 07/07/24 Raul Hoyos MD [address] [facility]J [place], [place] 7[address]25 Assigned Neuroscience Provider 05/08/24 07/07/24 documented as of this encounter
--- OUTSIDE RECORDS SUMMARY | 2024-07-16 13:54 | XMS_ITS | Encounter Summary ---
Author Organization [facility] Address [address] [place] [address] Care Team Providers Care Joy Operator Helper Name Role Phone Winston Villatoro Se OD Unavailable [phone] Denise Woodson Ra, APRN PHYS THER Unavailable + [phone] Denise Woodson Ra, APRN PHYS THER Primary Care Provid er Usha Simon APRN PHYS THER Unavailable Dangelo Salinas MD Unavailable Anastasia Stearns RN Unavailable Germaine Lopez CHW Unavailable Lisa Zambrano MD Unavailable Raul Hoyos MD Unavailable Joya Lira [facility] Unavailable [phone] Joya Lira [facility] Unavailable [phone] Fabi Coates MD Unavailable [phone] Robin Zepeda MD Unavailable [phone] Danna Cardenas PA-C Unavailable [phone] Felicita Desai RN Unavailable Unavailab le Encounter Details Date Type Department Care Team (Late st Contact Info) Description 05/24/2024 MyC Medical Advice Se [facility] Epilepsy [facility] [address] [facility], [address] [place] [phone] Rohit Barcenas MD [address] [facility] [address] [place] [address] Social History Tobacco Use Types Packs/Day Years [...] Never 02/28/2024 How often do you attend roman catholic or taoism serv ices? Never 02/28/2024 Do you belong to any clubs o r organizations such as roman catholic groups, unions, fraternal or athletic groups, [...] Date Recorded PHQ-2 Score 2 05/05/2024 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 Not on file Not on file Not on file Not on file Not on file Not on file documented as of this encounter Plan of Treatment Upcoming Encounters Date Type Department Care Team (Late st Contact Info) Description 07/20/2024 12:00 PM INFORMATICA DEVELOPER Virtual Visit [address] [phone] Denise Woodson Ra, TELEVISION RECEIVER ANALYZER PHYS THER [address] [place] [address] 07/30/2024 8:30 AM INFORMATICA DEVELOPER Virtual Visit [facility] [address] [place] [phone] Randy Maradiaga DO [address] [place] [address] 08/04/2024 12:00 PM INFORMATICA DEVELOPER Virtual Visit [facility] Addiction [facility] [address] [place] [phone] Arthur Salas[address] [place] [address] 08/04/2024 3:30 PM INFORMATICA DEVELOPER Virtual Visit [facility] [address] [place] [phone] Denise Woodson Ra, TELEVISION RECEIVER ANALYZER PHYS THER [address] [place] [address] 08/07/2024 1:00 PM INFORMATICA DEVELOPER Appointment [facility] [address] [facility] [address] [place] [phone] Danna Cardenas PA-C 6405 [place], [place] 3[address] 08/10/2024 12:30 PM INFORMATICA DEVELOPER Virtual Visit [facility] Neuropsychology [place] [address] [place] [address] [address] [place] [phone] Robin Zepeda MD [address] [place] [address] [id number] [place] [address] 08/17/2024 12:30 PM INFORMATICA DEVELOPER Office Visit [facility] Neuropsychology [address] [place] [phone] Robin Zepeda MD [address] [place] [address] [id number] [place] [address] Tulio Ogden, PhD [address] 0638[address] 09/04/2024 11:00 AM INFORMATICA DEVELOPER Office Visit [facility] [address] [place] [phone] Denise Woodson Ra, TELEVISION RECEIVER ANALYZER PHYS THER [address] [place], [place] [phone] 09/18/2024 1:00 PM INFORMATICA DEVELOPER Office Visit [facility] [address] [place] [phone] Denise Woodson Ra, TELEVISION RECEIVER ANALYZER PHYS THER [address] [place], [place] [phone] 09/29/2024 9:00 AM INFORMATICA DEVELOPER Virtual Visit [facility] Neurology [address] [phone] Randy Maradiaga DO [address] [place] [address] 10/09/2024 1:20 PM INFORMATICA DEVELOPER Office Visit [facility] Heart [place] [address] [facility] [address] [place] [phone] Danna Cardenas PA-C [address] [place] [address] [phone] 10/30/2024 4:00 PM INFORMATICA DEVELOPER Virtual Visit [facility] Vascular [facility] [place] [address] [place] [phone] Lisa Zambrano MD [address] [place] [address] 12/29/2024 12:45 PM CDT Office Visit [facility] [address] [place] [address] Ave [address] [phone] Fabi Coates MD [address] [place] [address] 12/29/2024 1:45 PM CDT Office Visit [facility] [address] [place] [address] Ave [address] [phone] Fabi Coates MD [address] [place] [address] 06/01/2025 11:15 AM CDT Appointment [facility] [address] [facility] [address] [place] [phone] Robin Zepeda MD [address] [place] [address] 002025 06/04/2025 11:00 AM CDT Office Visit [facility] Neurosurgery [address] [place] [phone] Robin Zepeda MD [address] [place] [address] 441585 Usha Simon APRN [address] [address] documented as of this encounter Goals Goal [...] Mental Health weekly - PT, OT and CARDIOLOGY SPECIALIST, continuing through [facility] [place]: - Continue following up with PCP: 09/04/2024 - Vascular Dr. Zambrano 05/01/24 - follow up recommended in 6 months: 11/11/24 TBD #[phone]. - call independently - MTM 05/25/2024, completed - Neurosurgery Dr. Zepeda, following up with PROPOSAL CONSULTANT: 06/04/2025 11:00 AM (Arrive by 10:45 [...] clinic with 24/7 after hours services available. Cafe Team Member will remain available as needed. documented as of this encounter Visit Diagnoses Not on filedocumented in this encounter Additional Health Concerns Active Problems Noted Date Diagnosed Date Increased risk of re-admission 02/18/2024 Assessment Noted Time PHQ-9 Depression Total Score: 5 03/17/20 24 9:45 AM CDT documented as of this encounter Care Teams Joy Operator Helper Relationship Specialty Start Date End Date Winston Villatoro OD [facility] [address] [facility] [address] [place] [address] PCP - Ophthalmology Ophthalmology 02/11/13 Denise Woodson Ra, APRN PHYS THER [address] [place] [address] PCP - General Family Practice 09/21/20 Denise Woodson Ra, APRN PHYS THER [address] [place], [place] [phone] Assigned PCP 07/17/20 Usha Simon APRN PHYS THER [address] [facility], [place] [address] Nurse Practitioner Neurological Surgery 01/24/24 Dangelo Salinas MD [address] [facility] [address] [place], [place] [phone] Neurology 01/27/24 Anastasia Stearns, RN Lead Cafe Team Member 02/06/24 Germaine Lopez, W Community Health Worker Primary Care - CC 02/18/24 Lisa Zambrano MD [address] [facility] [address] [place], [place] 001925 Assigned Heart and Vascular Provider 05/08/24 07/07/24 Raul Hoyos MD 909 [facility]121[place], [place] 292105 Assigned Neuroscience Provider 05/08/24 07/07/24 Joya Lira RPH [address] [place], [place] [phone] Pharmacist Pharmacist 05/25/24 Joya Lira [facility] [address] [place] [address] Assigned MTM Pharmacist 06/08/24 Fabi Coates MD [address] [facility] 75 [place] [address] Genetics, Clinical 06/18/24 Robin Zepeda MD 909 [facility]121[place] [address] Assigned Neuroscience Provider 07/08/24 Danna Cardenas PA-C 6405 [place] [address] Assigned Heart and Vascular Provider 07/08/24 Felicita Desai, RN Lead Cafe Team Member 07/14/24 documented as of this encounter
--- OUTSIDE RECORDS SUMMARY | 2024-07-16 13:54 | XMS_ITS | Encounter Summary ---
Author Organization [place] Address [address] [place] [address] Care Team Providers Care Sectional Belt Mold Assembler Name Role Phone Shauna Winston Se OD Unavailable [phone] Denise Woodson Ra, APRN RFID STRATEGIST Unavailable + [phone] Denise Woodson Ra, APRN RFID STRATEGIST Primary Care Provid er Usha Simon APRN RFID STRATEGIST Unavailable + [phone] Dangelo Salinas MD Unavailable Anastasia Stearns RN Unavailable [phone] Germaine Lopez CHW Unavailable [phone] Lisa Zambrano MD Unavailable + [phone] Raul Hoyos MD Unavailable Joya Lira [facility] Unavailable +[phone] Joya Lira [facility] Unavailable +[phone] Fabi Coates MD Unavailable [phone] Robin Zepeda MD Unavailable [phone] Danna Cardenas PA-C Unavailable [phone] Felicita Desai RN Unavailable Unavailab le Encounter Details Date Type Department Care Team (Late st Contact Info) Description 05/21/2024 [facility] [address] [place] [address] Qing Copeland Social History Tobacco Use Types Packs/Day Years [...] Never 02/28/2024 How often do you attend lutheran or scientology serv ices? 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 Not on file Not on file Not on file Not on file Not on file Not on file documented as of this encounter Plan of Treatment Upcoming Encounters Date Type Department Care Team (Late st Contact Info) Description 07/20/2024 12:00 PM CABINETMAKER APPRENTICE Virtual Visit [facility] [address] [place] [phone] Denise Woodson Ra, AMBULATORY CARE COORDINATOR RFID STRATEGIST [address] [place] [address] 07/30/2024 8:30 AM CABINETMAKER APPRENTICE Virtual Visit [facility] [address] [phone] Randy Maradiaga DO [address] [place] [address] 08/04/2024 12:00 PM CABINETMAKER APPRENTICE Virtual Visit [facility] [address] [place] [address] Arthur Salas, [address] [address] 08/04/2024 3:30 PM CABINETMAKER APPRENTICE Virtual Visit [facility] [address] [place] [phone] Denise Woodson Ra, AMBULATORY CARE COORDINATOR [facility] [address] [place] [address] 08/07/2024 1:00 PM CABINETMAKER APPRENTICE Appointment [facility] [address] [place] [phone] Danna Cardenas, PA-C [address] [place], [place] [address] 08/10/2024 12:30 PM CABINETMAKER APPRENTICE Virtual Visit [facility] Neuropsychology [place] [address] [phone] Robin Zepeda MD [address] [place] [address] SY7753EH [place] [address] 08/17/2024 12:30 PM CABINETMAKER APPRENTICE Office Visit [facility] Neuropsychology [address] [phone] Robin Zepeda MD 909 [facility] [id number] [place] [address] Tulio Ogden, PhD [address] [address] 09/04/2024 11:00 AM CABINETMAKER APPRENTICE Office Visit [facility] [address] [place] [phone] Denise Woodson Ra, AMBULATORY CARE COORDINATOR RFID STRATEGIST [address] [place], [place] [phone] 09/18/2024 1:00 PM CABINETMAKER APPRENTICE Office Visit [facility] [address] [place] [phone] Denise Woodson Ra, AMBULATORY CARE COORDINATOR RFID STRATEGIST [address] [place], [place] [phone] 09/29/2024 9:00 AM CABINETMAKER APPRENTICE Virtual Visit [facility] Neurology [address] [place] [phone] Randy Maradiaga DO [address] [place] [address] 10/09/2024 1:20 PM CABINETMAKER APPRENTICE Office Visit [facility] Heart [facility] [address] [place] [phone] Danna Cardenas PA-C [address] [place], [place] 7866[address] 10/30/2024 4:00 PM CABINETMAKER APPRENTICE Virtual Visit [facility] Vascular [facility] 6405 [facility] Berta [place] [phone] Lisa Zambrano MD [address] [place], [place] [address] 12/29/2024 12:45 PM CDT Office Visit [facility] Pediatric Specialty Clinic [address] [place] [phone] Fabi Coates MD [address] 7108[address] 12/29/2024 1:45 PM CDT Office Visit [facility] Pediatric Specialty [address] [phone] Fabi Coates MD [address] [place] [address] 429725 06/01/2025 11:15 AM CDT Appointment [facility] Imaging [address] [facility] [address] [place] [address] Robin Zepeda MD [address] [place] [address]87[address] 06/04/2025 11:00 AM CDT Office Visit [facility] Neurosurgery [address] 3rd [place] [phone] Robin Zepeda MD [address] [place] [address] 682375 Usha Simon APRN RFID STRATEGIST [address] [place] [address] documented as of this encounter Goals Goal [...] Mental Health weekly - PT, OT and AMMONIA TECHNICIAN, continuing through [facility]: - Continue following up with PCP: 09/04/2024 - Vascular Dr. Zambrano 05/01/24 - follow up recommended in 6 months: 11/11/24 TBD #[phone]. - call independently - MTM 05/25/2024, completed - Neurosurgery Dr. Zepeda, following up with SUPERVISOR SEWER MAINTENANCE: 06/04/2025 11:00 AM (Arrive by 10:45 AM) Usha Simon, BARRERA RFID STRATEGIST 2. I will take my medications as prescribed. 3. I will discuss, review, schedule and complete recommended overdue health maintenance with my Primary Care Provider. 4. I will contact my care team with questions, concerns, support needs. I will use the clinic as a resource and I understand I can contact my clinic with 24/7 after hours services available. Wire Photo Operator will remain available as needed. documented as of this encounter Visit Diagnoses Not on filedocumented in this encounter Additional Health Concerns Active Problems Noted Date Diagnosed Date Increased risk of re-admission 02/18/2024 Assessment Noted Time PHQ-9 Depression Total Score: 5 03/17/20 24 9:45 AM CDT documented as of this encounter Care Teams Sectional Belt Mold Assembler Relationship Specialty Start Date End Date Winston Villatoro OD [facility] [address] [facility] [address] [place] [address] PCP - Ophthalmology Ophthalmology 02/11/13 Denise Woodson Ra, AMBULATORY CARE COORDINATOR RFID STRATEGIST [address] [place] [address] PCP - General Family Practice 09/21/20 Denise Woodson Ra, APRN RFID STRATEGIST [address] [place] [address] Assigned PCP 07/17/20 Usha Simon APRN RFID STRATEGIST [address] [address] Nurse Practitioner Neurological Surgery 01/24/24 Dangelo Salinas MD [address] [place] [address] Neurology 01/27/24 Anastasia Stearns, RN Lead Wire Photo Operator 02/06/24 Germaine Lopez, W Community Health Worker Primary Care - CC 02/18/24 Lisa Zambrano MD 6405 [facility] [address] [place] [address] Assigned Heart and Vascular Provider 05/08/24 07/07/24 Raul Hoyos MD [address] [address] Assigned Neuroscience Provider 05/08/24 07/07/24 Joya Lira RPH [address] [place] [address] Pharmacist Pharmacist 05/25/24 Joya Lira RPH [address] [place] [address] Assigned MTM Pharmacist 06/08/24 Fabi Coates MD 420 [facility] 75 [place] [address] Genetics, Clinical 06/18/24 Robin Zepeda MD 909 [facility] [id number] [place] [address] Assigned Neuroscience Provider 07/08/24 Danna Cardenas PA-C 6405 [place] [address] Assigned Heart and Vascular Provider 07/08/24 Felicita Desai, RN Lead Wire Photo Operator 07/14/24 documented as of this encounter
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
--- OUTSIDE RECORDS SUMMARY | 2024-07-16 13:54 | XMS_ITS | Encounter Summary ---
Author Organization [employer] Address [address] [place] [address] Care Team Providers Care Human Resource Analyst Name Role Phone Winston Villatoro Se OD Unavailable [phone] Denise Woodson Ra, APRN PROCUREMENT INSPECTOR Unavailable + [phone] Denise Woodson Ra, APRN PROCUREMENT INSPECTOR Primary Care Provid er Usha Simon APRN PROCUREMENT INSPECTOR Unavailable + [phone] Dangelo Salinas MD Unavailable Anastasia Stearns RN Unavailable [phone] Germaine Lopez CHW Unavailable [phone] Lisa Zambrano MD Unavailable Raul Hoyos MD Unavailable Joya Lira [facility] Unavailable [phone] Joya Lira [facility] Unavailable [phone] Fabi Coates MD Unavailable [phone] Robin Zepeda MD Unavailable [phone] Danna Cardenas PA-C Unavailable [phone] Felicita Desai RN Unavailable Unavailab le Encounter Details Date Type Department Care Team (Late st Contact Info) Description 05/13/2024 [facility] Social History Tobacco Use Types Packs/Day Years [...] How often do you attend sikhism or shinto serv ices? 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 Not on file Not on file Not on file Not on file Not on file Not on file documented as of this encounter Plan of Treatment Upcoming Encounters Date Type Department Care Team (Late st Contact Info) Description 07/20/2024 12:00 PM EXPANSION JOINT FINISHER Virtual Visit [facility] [address] [place] [address] Denise Woodson Ra, WEB DEVELOPMENT MANAGER [facility] [address] [place], [place] [phone] 07/30/2024 8:30 AM EXPANSION JOINT FINISHER Virtual Visit [facility] Neurology Clinic [address] [phone] Randy Maradiaga, [address] [place] [address] 08/04/2024 12:00 PM EXPANSION JOINT FINISHER Virtual Visit [facility] Mental Health and Addiction Clinic [address] [place] [address] Arthur [facility] [address] [place] [address] 08/04/2024 3:30 PM EXPANSION JOINT FINISHER Virtual Visit [facility] [address] [place] [phone] Denise Woodson Ra, WEB DEVELOPMENT MANAGER [facility] [address] [place], [place] [phone] 08/07/2024 1:00 PM EXPANSION JOINT FINISHER Appointment [facility] Heart Care 6405 [facility] [address] [place] [address] [phone] Danna Cardenas PANilesC 6405 [place], [place] 059335 08/10/2024 12:30 PM EXPANSION JOINT FINISHER Virtual Visit [facility] Neuropsychology [address] [phone] Robin Zepeda MD [address] [place] [address] 594285 08/17/2024 12:30 PM EXPANSION JOINT FINISHER Office Visit [facility] Neuropsychology [address] [phone] Robin Zepeda MD [address] [place] [address] Tulio Ogden, PhD [address] [address] 09/04/2024 11:00 AM EXPANSION JOINT FINISHER Office Visit [facility] [address] [place] [phone] Denise Woodson Ra, WEB DEVELOPMENT MANAGER PROCUREMENT INSPECTOR [address] [place], [place] [phone] 09/18/2024 1:00 PM EXPANSION JOINT FINISHER Office Visit [facility] [address] [place] [phone] Denise Woodson Ra, WEB DEVELOPMENT MANAGER PROCUREMENT INSPECTOR [address] [place], [place] [phone] 09/29/2024 9:00 AM EXPANSION JOINT FINISHER Virtual Visit [facility] Neurology [facility] 909 [facility] 3rd [place] [phone] Randy Maradiaga, [address] [address] 10/09/2024 1:20 PM EXPANSION JOINT FINISHER Office Visit [facility] Heart [facility] 6405 [facility] [address] [place] [phone] Danna Cardenas PA-C [address] [place], [place] 085905 10/30/2024 4:00 PM EXPANSION JOINT FINISHER Virtual Visit [facility] Vascular [facility] [address] [place] [phone] Lisa Zambrano MD [address] [place] [address] 12/29/2024 12:45 PM CDT Office Visit [facility] Pediatric Specialty Clinic [address] [place] [address] [phone] Fabi Coates MD [address] 516[address] 12/29/2024 1:45 PM CDT Office Visit [facility] Pediatric Specialty Clinic [address] [place] [address] [phone] Fabi Coates MD [address] [place] [address] 077855 06/01/2025 11:15 AM CDT Appointment [facility] Imaging [address] [facility] [address] [place] [phone] Robin Zepeda MD [address] [place] [address] 946335 06/04/2025 11:00 AM CDT Office Visit [facility] Neurosurgery [address] 3rd [place] [phone] Robin Zepeda MD [address] [place] [address] 235215 Usha Simon APRN [address] 009855 documented as of this encounter Goals Goal [...] Mental Health weekly - PT, OT and NET UI DEVELOPER, continuing through [facility] [place]: - Continue following up with PCP: 09/04/2024 - Vascular Dr. Zambrano 05/01/24 - follow up recommended in 6 months: 11/11/24 TBD #[phone]. - call independently - MTM 05/25/2024, completed - Neurosurgery Dr. Zepeda, following up with ARTERIAL EMBALMER: 06/04/2025 11:00 AM (Arrive by 10:45 AM) Usha Simon APRN PROCUREMENT INSPECTOR 2. I will take my medications as prescribed. 3. I will discuss, review, schedule and complete recommended overdue health maintenance with my Primary Care Provider. 4. I will contact my care team with questions, concerns, support needs. I will use the clinic as a resource and I understand I can contact my clinic with 24/7 after hours services available. Plumber'S Assistant will remain available as needed. documented as of this encounter Visit Diagnoses Not on filedocumented in this encounter Additional Health Concerns Active Problems Noted Date Diagnosed Date Increased risk of re-admission 02/18/2024 Assessment Noted Time PHQ-9 Depression Total Score: 5 03/17/20 24 9:45 AM CDT documented as of this encounter Care Teams Human Resource Analyst Relationship Specialty Start Date End Date Winston Villatoro OD [facility] [place] [address] [place] [id number] PCP - Ophthalmology Ophthalmology 02/11/13 Denise Woodson Ra, WEB DEVELOPMENT MANAGER PROCUREMENT INSPECTOR [address] [place] [address] PCP - General Family Practice 09/21/20 Denise oWodson Ra WEB DEVELOPMENT MANAGER PROCUREMENT INSPECTOR [address] [facility] [place] [address] Assigned PCP 07/17/20 Usha Simon APRN PROCUREMENT INSPECTOR [address] 712375 Nurse Practitioner Neurological Surgery 01/24/24 Dangelo Salinas MD [address] [place], [place] [address] Neurology 01/27/24 Anastasia Stearns, RN Lead Plumber'S Assistant 02/06/24 Germaine Lopez, [facility] Community Health Worker Primary Care - CC 02/18/24 Lisa Zambrano MD [address] [facility] [place] [address] 937815 Assigned Heart and Vascular Provider 05/08/24 07/07/24 Raul Hoyos MD [address] [address] Assigned Neuroscience Provider 05/08/24 07/07/24 Joya Lira RPH [address] [place], [place] [phone] Pharmacist Pharmacist 05/25/24 Joya Lira RPH [address] [place] [address] Assigned MTM Pharmacist 06/08/24 Fabi Coates MD 420 [facility] 75 [place] [address] Genetics, Clinical 06/18/24 Robin Zepeda MD 909 [facility]2121[place], [place] [address] Assigned Neuroscience Provider 07/08/24 Danan Cardenas PA-C [address] [place], [place] 953845 Assigned Heart and Vascular Provider 07/08/24 Felicita Desai RN Lead Plumber'S Assistant 07/14/24 documented as of this encounter
--- OUTSIDE RECORDS SUMMARY | 2024-07-16 13:54 | XMS_ITS | Encounter Summary ---
Author Organization [place] Address [address] [place] [address]. [place] [address] Care Team Providers Care Youth Associate Name Role Phone Tarik Villatorogabino Saez OD Unavailable [phone] Denise Woodson Ra, APRN PIECE MARKER SMALL ARMS Unavailable + [phone] Denise Woodson Ra, APRN PIECE MARKER SMALL ARMS Primary Care Provid er Usha Simon APRN PIECE MARKER SMALL ARMS Unavailable Dangelo Salinas MD Unavailable Anastasia Stearns RN Unavailable Germaine Lopez CHW Unavailable Lisa Zambrano MD Unavailable Raul Hoyos MD Unavailable Reason for Visit * Reason Onset Date Comments Forms 05/15/2024 disability Encounter Details Date Type Department Care Team (Late st Contact Info) Description 05/15/2024 Telephone [facility] [address] [place] [address] Denise Woodson Ra, APRN PIECE MARKER SMALL ARMS [address] [place] [address] Forms (disability) Social History Tobacco [...] How often do you attend yazidi or baptism serv ices? 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 Qing Cardona Lead Package Crimper [facility] Phoebe Gross * Telephone Encounter - Anastasia Abad - 05/20/2024 11:00 AM CDT Kaleb with [employer] calling to inquire if short term disability forms were received. Will Re-send the Forms. Forms were not in the provider's basket, nor was there an encounter statingthe provider received/signed the form. Anastasia Hutsonmount Package Crimper [facility] * Telephone Encounter - Qing Copeland - 05/15/2024 12:46 PM CDT Duplicate encounter. Qing Copeland Lead Package Crimper [facility] * Telephone Encounter - Lauro Jarquin, RN - 05/15/2024 12:14 PM CDT Kaleb with [employer] calling to inquire if short term disability forms were received. Provided [facility] fax number to re-fax forms: [phone]. Please keep an eye out for this fax and return to PCP for review. Thank you! Lauro Jarquin, RN on 05/15/2024 at 12:19 PM documented in this encounter Plan of Treatment Upcoming Encounters Date Type Department Care Team (Late st Contact Info) Description 07/20/2024 12:00 PM CULLET CRUSHER Virtual Visit [facility] [address] [place] [phone] Denise Woodson Ra, CHIEF [employer] DIV[employer] PIECE MARKER SMALL ARMS [address] [place] [address] 07/30/2024 8:30 AM CULLET CRUSHER Virtual Visit [facility] Neurology Clinic [address] [place] [address] Randy Maradiaga DO [address] [place] [address] 08/04/2024 12:00 PM CULLET CRUSHER Virtual Visit [facility] Mental Health and Addiction Clinic [place] [address] [place] [address] OlayinkaanselmoledyLorrieanaly, [facility] [address] [place] [address] 08/04/2024 3:30 PM CULLET CRUSHER [facility] [address] [place] [phone] Denise Woodson Ra, CHIEF FISH[employer] DIVISION PIECE MARKER SMALL ARMS [address] [place], [place] [phone] 08/07/2024 1:00 PM CULLET CRUSHER Appointment [facility] Heart Care 6405 [facility] [address] [place] [phone] Danna Cardenas PANilesC 6405 [place], [place] 224015 08/10/2024 12:30 PM CULLET CRUSHER Virtual Visit [facility] Neuropsychology [address] [phone] Robin Zepeda MD [address] [place] [address] 08/17/2024 12:30 PM CULLET CRUSHER Office Visit [facility] Neuropsychology [address] [phone] Robin Zepeda MD [address] [place] [address] 459475 Tulio Ogden, PhD [address] [address] 09/04/2024 11:00 AM CULLET CRUSHER [facility] [address] [place] [phone] Denise Woodson Ra, CHIEF [employer] DIV[employer] PIECE MARKER SMALL ARMS [address] [facility] [place], [place] [phone] 09/18/2024 1:00 PM CULLET CRUSHER [facility] [address] [place] [phone] Denise Woodson Ra, CHIEF [employer] PIECE MARKER SMALL ARMS [address] [facility] [place] [address] 09/29/2024 9:00 AM CULLET CRUSHER Virtual Visit [facility] Neurology [address] [phone] Randy Maradiaga, [address] [address] 10/09/2024 1:20 PM CULLET CRUSHER Office Visit [facility] Heart [facility] [address] [phone] Danna Cardenas PA-C 6405 [place] [address] 10/30/2024 4:00 PM CULLET CRUSHER Virtual Visit [facility] Vascular [place] [address] [place] [phone] Lisa Zambrano MD [address] [place] [address] 12/29/2024 12:45 PM CDT Office Visit [facility] 2450 [facility] [address] [address],[place] [phone] Fabi Coates MD 420 [facility] 75 [place] [address] 12/29/2024 1:45 PM CDT Office Visit [facility] 2450 [facility] Explorer [facility] [address]th [address],[place] [phone] Fabi Coates MD 420 [facility] 75 [place] [address] 06/01/2025 11:15 AM CDT Appointment [facility] Care Center Imaging [address] [place] [phone] Robin Zepeda MD [address] [place] [address] 06/04/2025 11:00 AM CDT Office Visit [facility] Neurosurgery Clinic [place] [address] [place] [address] 3rd [place] [phone] Robin Zepeda MD [address] [place] [address] Usha Simon APRN [address] [address] documented as of this encounter Goals Goal [...] Mental Health weekly - PT, OT and RIG BUILDER, continuing through [facility] [place]: - Continue following up with PCP: 09/04/2024 - Vascular Dr. Zambrano 05/01/24 - follow up recommended in 6 months: 11/11/24 TBD #[phone]. - call independently - MTM 05/25/2024, completed - Neurosurgery Dr. Zepeda, following up with COMPUTER CLERK: 06/04/2025 11:00 AM (Arrive by 10:45 AM) [...] clinic with 24/7 after hours services available. Net Front End Developer will remain available as needed. documented as of this encounter Visit Diagnoses Not on filedocumented in this encounter Additional Health Concerns Active Problems Noted Date Diagnosed Date Increased risk of re-admission 02/18/2024 Assessment Noted Time PHQ-9 Depression Total Score: 5 03/17/20 24 9:45 AM CDT documented as of this encounter Care Teams Youth Associate Relationship Specialty Start Date End Date Winston Villatoro, OD [facility] [address] [place] [address] PCP - Ophthalmology Ophthalmology 02/11/13 Denise Woodson Ra, APRN CNP [address] [place] [address] PCP - General Family Practice 09/21/20 Denise Woodson Ra, APRN CNP [address] [place] [address] Assigned PCP 07/17/20 Usha Simon APRN CNP [address] [place] [address] Nurse Practitioner Neurological Surgery 01/24/24 Dangelo Salinas MD [address] [place] [address] Neurology 01/27/24 Anastasia Stearns, RN Lead Net Front End Developer 02/06/24 Germaine Lopez, W Community Health Worker Primary Care - CC 02/18/24 Lisa Zambrano MD [address] [place] [address] Assigned Heart and Vascular Provider 05/08/24 07/07/24 Raul Hoyos MD [address] [place] [address] Assigned Neuroscience Provider 05/08/24 07/07/24 documented as of this encounter
--- OUTSIDE RECORDS SUMMARY | 2024-07-16 13:54 | XMS_ITS | Encounter Summary ---
Author Organization [facility] Address [address] [place] [address] Care Team Providers Care Warehouse Order Picker Name Role Phone ShaunaWinston OD Unavailable [phone] Denise Woodson Ra, APRN [employer] SUPERVISOR Unavailable + [phone] Denise Woodson Ra, APRN [employer] YOU[employer] SUPERVISOR Primary Care Provid er Usha Simon APRN [employer] YOU[employer] SUPERVISOR Unavailable + [phone] Dangelo Salinas MD Unavailable Anastasia Stearns RN Unavailable [phone] Germaine Lopez CHW Unavailable [phone] Lisa Zambrano MD Unavailable Raul Hoyos MD Unavailable Reason for Referral * Care Coordination (Routine: Next available opening) - Pending Review Specialty Diagnoses / Procedures Referred By Contac t Referred To Contact Diagnoses Gastroesophageal reflux disease with esophagitis without hemorrhage Vlad Rehman MD [facility] [address] [address] Phone: tel: fax: Referral ID Status Reason Start Date Expiration Date V isits Requested Visits Authorized [id number] Pending Review 05/16/2024 05/16/2025 1 1 Question [...] right upper extremity Stevo Islas MD [address] [place] [address] Phone: tel: fax: Referral ID Status Reason Start Date Expiration Date V isits Requested Visits Authorized [id number] Pending Review 05/16/2024 05/16/2025 1 1 Question Answer Reason for Referral: General Neurology Scheduling Instructions: [facility] will call you to coordinate your care as prescribed by your provider. If you don't hear from a sales representative printing supplies within 2 business days, please call . Additional Information: Left sided numbness/heaviness Comments Please be aware that coverage of these services is subject to the terms and limitations of your health insurance plan. Call member services at your health plan with any benefit or coverage questions. [facility] will call you to coordinate your care as prescribed by your provider. If you don't hear from a sales representative printing supplies within 2 business days, please call . * Consultation (Routine: Next available opening) - Pending Review Specialty Diagnoses / Procedures Referred By Contac t Referred To Contact Cardiovascular Disease Diagnoses Chest pain, unspecified type Danna Cardenas PA-C [address] [place] [address] Phone: tel: fax: Referral ID Status Reason Start Date Expiration Date V isits Requested Visits Authorized [id number] Pending Review 05/15/2024 05/15/2025 1 1 Question Answer Follow-up with: MONICA Reason for follow-up: General Cardiology Scheduling Instructions: [facility] will call you to coordinate your care as prescribed by your provider. If you have concerns about scheduling, please call [phone]. Comments [facility] will call you to coordinate your care as prescribed by your provider. If you have concerns about scheduling, please call [phone]. Reason for Visit * Auth/Cert (Routine) Specialty Diagnoses / Procedures Referred By Nila t Referred To Contact Cardiology Diagnoses Chest Pain Chest pain [facility] [address], [address] [place] [address] Phone: tel: Referral ID Status Reason Start Date Expiration Date Visits Re quested Visits Authorized [id number] 1 1 Encounter Details Date Type Department Care Team (Late st Contact Info) Description 05/14/2024 9:06 PM CDT - 05/19/2024 4:25 PM CDT Hospital Encounter [facility] [address] [address] Vlad Rehman MD [facility] [address] [id number] Christen Peng MD [address] [id number] Gastroesophageal reflux disease with esophagitis without hemorrhage (Primary Dx); Chest pain, unspecified type; Dural arteriovenous fistula; History of seizure; History of stroke; Pain of right upper extremity; Other constipation; Cerebrovascular accident (CVA), unspecified mechanism (H); Fibromyalgia Discharge Disposition: Home or Self Care Social [...] How often do you attend caodaism or sikhism serv ices? 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 Not on file Not on file Not on file Not on file Not on file Not on file Not on file documented as of this encounter Last Filed Vital Signs Vital Sign Reading Time Taken Comments Blood Pressure 126/79 05/19/2024 3:11 PM CDT Pulse 71 05/19/2024 3:11 PM CDT Temperature 36.3 ??C (97.4 ??F) 05/19/2024 3:11 PM CD T Respiratory Rate 16 05/19/2024 3:11 PM CDT Oxygen Saturation 98% 05/19/2024 3:11 PM CDT Inhaled Oxygen Concentration - - Weight 95 kg (209 lb 7 oz) 05/16/2024 6:00 AM CD T Height 172.7 cm (5' 8) 05/14/2024 9:09 PM CDT Body Mass Index 31.84 05/14/2024 9:09 PM CDT documented in this encounter Discharge Summaries * Shruthi Tyson MD - 05/19/2024 1:06 PM CDT [facility] Hospital[facility] Discharge Summary Date of Admission: 05/14/2024 Date of Discharge: 05/19/2024 Discharging Provider: Shruthi Tyson MD Discharge Service: Hospitalist Service Discharge Diagnoses 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 as calculated from the following: Height as of this encounter: 1.727 m (5' 8). Weight as of this encounter: 95 kg (209 lb 7 oz). Follow-ups Needed After Discharge Follow-up Appointments Follow-up and recommended labs and tests Follow up with primary care provider, Denise Woodson, within 7 days to evaluate medication change and for hospital follow- up. No follow up labs or test are needed. Follow up with Dr. Michael Fernández ([facility]) as instructed by him; call [phone] for appointment. Unresulted Labs Ordered in the Past 30 Days of this Admission No orders found from 04/14/2024 to 05/15/2024. Discharge Disposition Discharged to home Condition at discharge: Stable Hospital Course Alcon Zamora is a 48 year old female with medical history significant for ischemic stroke, bihemispheric due to procedural complication after cerebral angiogram and right-sided weakness and numbness, poststroke generalized tonic- clonic seizure, intermittent frontal headaches, left sigmoid dural AVfistula, pulsatile tinnitus, fibromyalgia, MONAE, insomnia, history of ASD repair, well- controlled asthma was transferred to [facility] for evaluation of chest pain/pressure (ECG with t wave inversions but negative troponin and Lexiscan). Hospital course complicated by L sided weakness (negative stroke work up) and recurrence of pulsatile tinnitus/pounding YANG in setting of AV fistula. Neurosurgery consulted on 05/16/2024 with no plans for surgical intervention from their end but recommending to move [facility] neurosurgery appt to a sooner date than the one on ~07/2024. Hospitalist Dr. Cates sent an Crude Area in-basket message to [facility] Neurosurgery group (Dr Zepeda and his LABORATORY MANAGER, Usha Simon) on 05/16/2024 to get an earlier appt. her headaches have improved and she is requesting discharge home with outpatient PT, OT, SOFTWARE TOOLS ENGINEER. 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 Epic in-basket message sent on 05/16/2024 to [facility] group to move outpt appt earlier than initial one on ~07/2024 - Pain regimen: Tylenol TID, Oxy PRN and Dilaudid IV PRN -Follow-up with outpatient PT, OT, SOFTWARE TOOLS ENGINEER (appointments were arranged prior to admission). Chest pain - resolved -Troponin x 2 negative, D-dimer negative. EKG showed T inversion in inferior leads. - lexiscan 05/15/2024: No inducible myocardial ischemia with normal LV function - Cardiology signed off 05/15/2024 with final recs of proceeding with CT coronary angio outpt if with persistent symptoms - Continue TABLE OPERATOR aspirin and statin Left arm heaviness, tingling, [...] Brain/Neck without new infarcts Plan - continue TABLE OPERATOR ASA 162 mg daily and TABLE OPERATOR statin (Crestor 20 mg daily) for secondary stroke prevention - Neuro signed off with final recs of outpt follow up in 6-8 weeks and starting Depakote 500mg po daily (since headache was suspected to be migraine). See further discussion below, patient is not interested in beginning another anticonvulsant medication. Depakote discontinued. Post stroke generalized tonic-clonic seizure - Continue TABLE OPERATOR Keppra 375 mg twice daily - Patient had an office consultation with Dr. Barcenas on 05/05/2024. He wanted her to ultimately taperand discontinue levetiracetam and started oxcarbazepine. She does not want to take oxcarbazepine. She believes she would potentially tolerate levetiracetam at a slightly higher dose, i.e. 500 mg twice daily. We discussed getting a second opinion regarding anticonvulsants. - General Neurology consult requested, I appreciate Dr. Michael Fernández's evaluation and recommendations - Patient ultimately agreed to continue oxcarbazepine and taper and discontinue Keppra. She wishes to follow with Dr. Montse Neely for treatment of epilepsy. Stable medical conditions: Fibromyalgia MONAE Insomnia : Continue TABLE OPERATOR trazodone 100 mg at bedtime History of ASD repair Well-controlled asthma Consultations This Hospital Stay CARDIOLOGY IP CONSULT NEUROLOGY IP STROKE CONSULT VASCULAR ACCESS ADULT IP CONSULT CARE MANAGEMENT / SOCIAL WORK IP CONSULT NEUROSURGERY IP CONSULT PHYSICAL THERAPY ADULT IP CONSULT OCCUPATIONAL THERAPY ADULT IP CONSULT CARE MANAGEMENT / SOCIAL WORK IP CONSULT NEUROLOGY IP CONSULT Code Status Full Code Time Spent on this Encounter I, Shruthi Tyson MD, personally saw the patient today and spent greater than 30 minutes discharging this patient. Shruthi Tyson MD [facility] [address] [place] [address] Physical Exam Vital Signs: Temp: 98.3 ??F (36.8 ??C) Temp src: Oral BP: 127/70 Pulse: 68 Resp: 18 SpO2: 98 % O2 Device: None (Room air) Weight: 209 lbs 6.99 oz I saw and examined the patient on the date of discharge. Primary Care Physician Denise Woodson Discharge Orders Follow-Up with Cardiology [facility] Adult Neurology Shower Doors And Panels Fabricator Referral Primary Care - Care Coordination Referral Reason for your hospital stay You had a headache and other symptoms possibly related to an arteriovenous malformation (AVM). Follow-up and recommended labs and tests Follow up with primary care provider, Denise Woodson, within 7 days to evaluate medication change and for hospital follow- up. No follow up labs or test are needed. Follow up with Dr. Michael Fernández ([facility]) as instructed by him; call [phone] for appointment. Activity Your activity upon discharge: activity as tolerated Diet Follow this diet upon discharge: Current Diet:Orders Placed This Encounter Regular Diet Adult Significant Results and Procedures Most Recent 3 CBC's: Recent Labs Lab Test 05/15/24 0605/10/24 1434 03/03/24 1149 WBC 5.4 8.5 7.6 HGB 13.6 14.7 14.9 MCV 93 92 91 PLT 172 185 168 Most Recent 3 BMP's: Recent Labs Lab Test 05/15/2462405/10/24143305/10/24 1433 03/03/24 1149 NA 141 140 -- 140 POTASSIUM 4.5 4.1 -- 5.0 CHLORIDE 106 104 -- 103 CO2 27 25 -- 27 BUN 15.4 13.4 -- 11.4 CR 0.90 0.78 -- 0.81 ANIONGAP 8 11 -- 10 TIFF 9.1 9.8 -- 9.8 GLC 89 85 78 96 , Results for orders placed or performed during the hospital encounter of 05/14/24 MRA Neck (Carotids) wo & w Contrast Narrative MRA NECK WITHOUT AND WITH CONTRAST 05/15/2024 4:01 PM HISTORY: left sided tingling, eb and flow since yesterday history of prior CVA mri head done last at [place] TECHNIQUE: 2D [id number] MR angiogram of the neck without contrast [...] without evidence of dissection. No significant stenosis. Impression IMPRESSION: Normal MR angiogram of the neck. MIRELA TINEO MD SYSTEM ID: [id number] MRA Brain ([place]) wo Contrast Narrative MR ANGIOGRAM OF THE HEAD WITHOUT CONTRAST 05/15/2024 4:01 PM HISTORY: eb/flow of left sided heaviness, tingling, since yesterday TECHNIQUE: 3D [id number] MR angiogram of the head without contrast. COMPARISON: 05/10/2024 CTA head FINDINGS: The major intracranial arteries including the proximal branches of the anterior cerebral, middle cerebral, and posterior cerebral arteries appear patent without vascular cutoff. No aneurysm identified. No significant stenosis. Mildly hypoplastic left A1 segment. Impression IMPRESSION: No hemodynamically significant stenosis in the head or evidence of acute vascular injury. MIRELA TINEO MD SYSTEM ID: [id number] MR Brain w/o & w Contrast Narrative MRI BRAIN WITHOUT AND WITH CONTRAST 05/15/2024 [...] orbits, paranasal sinuses and mastoids are unremarkable. Impression IMPRESSION: No restricted diffusion to suggest acute ischemia. Mild chronic small vessel ischemic changes. Small region of susceptibility abnormality which is stable from the prior study compatible with an area of remote hemosiderin deposition from either a remote insult or possibly a cavernous malformation in this area felt to be less likely. MIRELA TINEO MD SYSTEM ID: [id number] NM Lexiscan stress test (nuc card) Value Target HR 173 Baseline Systolic BP 141 Baseline Diastolic BP 73 Last Stress Systolic BP 144 Last Stress Diastolic BP 82 Baseline HR 65 Max HR 108 Max Predicted HR 62 Rate Pressure Product 15,552.0 Narrative The nuclear stress test is negative for inducible myocardial ischemia or infarction. Left ventricular function is normal. There is no prior study for comparison. Discharge Medications Current Discharge Medication List START taking these medications Details oxyCODONE (ROXICODONE) 5 MG tablet Take 0.5 tablets (2.5 mg) by mouth every 4 hours as needed for moderate to severe pain. Qty: 10 tablet, Refills: 0 Associated Diagnoses: Cerebrovascular accident (CVA), unspecified mechanism (H) CONTINUE these medications which have CHANGED Details aspirin 81 MG EC tablet Take 2 tablets (162 mg) by mouth daily. Associated Diagnoses: Cerebrovascular accident (CVA), unspecified mechanism (H) levETIRAcetam (KEPPRA) 750 MG tablet Take 1/2 of 750 mg tab BID Associated Diagnoses: History of seizure Lidocaine (LIDOCARE) 4 % Patch Place 1 patch onto the skin daily as needed. To prevent lidocaine toxicity, patient should be patch free for 12 hrs daily. Associated Diagnoses: Pain of right upper extremity; Fibromyalgia CONTINUE these medications which have NOT CHANGED [...] Associated Diagnoses: Moderate persistent asthma without complication BREO ELLIPTA 200-25 MCG/INH Inhaler INHALE 1 PUFF INTO THE LUNGS DAILY Qty: 3 each, Refills: 1 Associated Diagnoses: Moderate persistent asthma without complication cetirizine (ZYRTEC) 10 MG tablet Take 10 mg by mouth at bedtime. LORazepam (ATIVAN) 1 MG tablet Take 1/2-1 tablet daily as needed for onset of dizziness. Qty: 10 tablet, Refills: 0 Associated Diagnoses: History of seizure MAGNESIUM PO Take 1 tablet by mouth at bedtime. meclizine (ANTIVERT) 25 MG tablet Take 1 tablet (25 mg) by mouth 3 times daily as needed for dizziness Qty: 20 tablet, Refills: 0 methyl salicylate-menthol (ICY HOT) ointment Apply topically every 6 hours as needed (pain) Associated Diagnoses: Fibromyalgia; Pain of right upper extremity psyllium (METAMUCIL) 28.3 % packet Take 1 packet by mouth daily rosuvastatin (CRESTOR) 20 MG tablet TAKE 1 TABLET (20 MG) BY MOUTH AT BEDTIME Qty: 90 tablet, Refills: 0 Associated Diagnoses: Cerebrovascular accident (CVA), unspecified mechanism (H) senna-docusate (SENOKOT-S/PERICOLACE) 8.6-50 MG tablet Take 2 tablets by mouth 2 times daily as needed for constipation Associated Diagnoses: Other constipation traZODone (DESYREL) 50 MG tablet Take 2 tablets (100 mg) by mouth At Bedtime Qty: 180 tablet, Refills: 3 Associated Diagnoses: Insomnia, unspecified type OXcarbazepine (TRILEPTAL) 150 MG tablet Take 1 tablet (150 mg) by mouth at bedtime Qty: 30 tablet, Refills: 5 Associated Diagnoses: 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) Allergies Allergies Allergen Reactions Codeine GI Disturbance Other Reaction(s): epigastric pain Mold Dizziness and GI Disturbance Morphine GI Disturbance Bupropion GI Disturbance and Other (See Comments) Diarrhea and stomach ache Erythromycin GI Disturbance documented in this encounter Medications at Time of Discharge acetaminophen (TYLENOL) 500 MG tabletIndications: Fibromyalgia,Pain of right upper extremity Take 1-2 tablets (500-1,000 mg) by mouth 3 times daily as needed for mild pain or headaches 01/24/2024 albuterol (PROAIR HFA/PROVENTIL HFA/VENTOLIN HFA) 108 (90 Base) MCG/ACT inhalerIndications :Moderate persistent asthma without complication Inhale 2 puffs into the lungs every 4 hours as needed for shortness of breath / dyspnea or wheezing 1 Inhaler 3 07/13/2020 aspirin 81 MG EC tabletIndications: Cerebrovascular accident (CVA), unspecified mechanism (H) Take 2 tablets (162 mg) by mouth daily. 05/19/2024 cetirizine (ZYRTEC) 10 MG tablet Take 10 mg by mouth at bedtime. Lidocaine (LIDOCARE) 4 % PatchIndications:P ain of right upper extremity,Fibromya lgia Place 1 patch onto the skin daily as needed. To prevent lidocaine toxicity, patient should be patch free for 12 hrs daily. 05/19/2024 MAGNESIUM PO Take 1 tablet by mouth at bedtime. methyl salicylate-menthol (ICY HOT) ointmentIndication s:Fibromyalgia,Tony n of right upper extremity Apply topically every 6 hours as needed (pain) 01/22/2024 oxyCODONE (ROXICODONE) 5 MG tabletIndications: Cerebrovascular accident (CVA), unspecified mechanism (H) Take 0.5 tablets (2.5 mg) by mouth every 4 hours as needed for moderate to severe pain. 10 tablet 05/19/2024 psyllium (METAMUCIL) 28.3 % packet Take 1 packet by mouth daily senna-docusate (SENOKOT-S/PERICOL VIC) 8.6-50 MG tabletIndications: Other constipation Take 2 tablets by mouth 2 times daily as needed for constipation 01/22/2024 BREO ELLIPTA 200-25 MCG/INH InhalerIndications :Moderate persistent asthma without complication INHALE 1 PUFF INTO THE LUNGS DAILY 3 each 1 02/22/2022 06/08/20 24 levETIRAcetam (KEPPRA) 750 MG tabletIndications: History of seizure Take 1/2 of 750 mg tab BID 05/19/2024 07/02/20 24 LORazepam (ATIVAN) 1 MG tabletIndications: History of seizure Take 1/2-1 tablet daily as needed for onset of dizziness. 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 AVS printed, pt educated. IV discontinued. All belongings went home with pt. * Jerome Fenton BSW - 05/19/2024 2:38 PM CDT Care Management Discharge Note Discharge Date: 05/19/2024 Discharge Disposition: Home, Other (Comments) (pending plan/any procedures as pt states may need surgery) Discharge Services: Discharge DME: Discharge Transportation: family or friend will provide Private pay costs discussed: Not applicable Does the patient's insurance plan have a 3 day qualifying hospital stay waiver? No PAS Confirmation Code: Patient/family educated on Medicare website which has current facility and service quality ratings: Education Provided on the Discharge Plan: Persons Notified of Discharge Plans: Patient, [employer], Bedside nurse Patient/Family in Agreement with the Plan: yes Handoff Referral Completed: No, handoff not indicated or clinically appropriate Additional Information: Pt has progressed back to baseline and is able to discharge home. Brand Representative met with patient at bedside to discuss any further needs. Pt denies any needs for home care and states that she has her outpatient therapy appointments already set up. No further care management intervention anticipated at this time. Please re- consult if further needs arise. Care management signing off. [facility] INPATIENT CARE COORDINATION * Navya Black, PT - 05/19/2024 1:58 PM CDT 05/19/24 1356 Signing Clinician's Name / Credentials Signing clinician's name / credentials Navya Black DPRuiz Dynamic Gait Index (Carlo and Molina [place], 1995) Gait Level Surface 3 Change in Gait Speed 3 Gait and Horizontal Head Turns 2 Gait with Vertical Head Turns 2 Gait and Pivot Turns 3 Step Over Obstacle 3 Step Around Obstacles 3 Steps 2 Total Dynamic Gait Index Score (A score of 19 or less has been correlated to an increased risk of falls in community dwelling older adults, patients with vestibular disorders, and patients with MS.) Total Score (out of 24) 21 Dynamic Gait Index (DGI):The DGI is a measure of balance during gait that is reliable and valid forthe elderly and individuals with Parkinson's disease, MS, vestibular disorders, or s/p stroke. Gaitassistive device used: None Patient score: 21/24 Scores <=19/24 indicate an increased risk for falls according to Tiffani et al 2000 Minimal Detectable Change = 2.9 in community dwelling elderly according to Velasco et al 2011 Assessment (rationale for performing, application to patient? s function & care plan): Performed DGI to assess balance and falls risk. Pt score indicates pt at less of a falls risk. Pt w/ most difficulty on head turns. Pt has a history of vestibular disorder. Recommend OP PT to progress strength, balance, and functional mobility. Minutes billed as physical performance test 12 * Michael Fernández MD - 05/19/2024 11:33 AM CDT Brief Note Patient agreeable to me un-holding her Trileptal. Full consult note to follow. Michael Fernández MD (general neurology) Pgr [phone] * Michael Fernández MD - 05/19/2024 10:13 AM CDT HOSPITAL NEUROLOGY History of the Present Illness: 48 year old female with history of EDS, strokes complicating an IR angiogram for a left sigmoid dural aVF, right ICA dissection, epilepsy presented to the ED 05/14/2024 with chest pain. The past strokes apparently caused some residual cognitive deficits. Stroke neurology was initially consulted because of report for left arm and face numbness. There was also blurry vision and dizziness. MRI was negative for a new stroke. Neurosurgery also saw patient last week with severe headaches and various other symptoms. But no neurosurgical interventions were needed. General neurology now consulted because she is on a low dose of levetiracetam and the neurologist she recently saw wanted to cross-taper this to oxcarbazepine. But she does not want to start a new seizure medication and wanted to speak to another neurologist. She relates only the one seizure. But since December, she has had about 6 episodes that are difficult to characterize. She calls them 'auras' and seem to involve some dizziness, though again, very difficult to describe. In January, she was transferred from rehab to the hospital because of such an episode,though it was deemed not to be a seizure. She was most interested in trying to increase her levetiracetam to 500mg BID. Previously, she had been on 750mg BID and felt dizzy and fatigue and even thoughts of self-harm apparently. Cutting the dose down resolved all of these problems. Outside Records Reviewed 05/05/2024 - [facility] epilepsy - single witnessed GTC seizure 01/14/2024, no further seizures on levetiracetam but worsened depression and anxiety. Also had unclear events in January that were non-convulsiveand not stereotyped and thus unclear etiology. 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 C PIPE ORGAN MECHANIC APPRENTICE PROCEDURE DATE: 2000 tubal ligation C PIPE ORGAN MECHANIC APPRENTICE PROCEDURE DATE: 1994 D&C CARDIAC SURGERY 06/2006 heart defect repair ESOPHAGOSCOPY, GASTROSCOPY, DUODENOSCOPY (EGD), COMBINED N/A 02/08/2021 Procedure: ESOPHAGOGASTRODUODENOSCOPY (EGD); Surgeon: Tuan Miller MD; Location: GI GI SURGERY 09/2020 gallbladder removed HC KNEE SCOPE,MED/LAT MENISECTOMY 08/04/13 LT HEART CATH, CLOSURE ATRIAL SEPTAL DEFECT 06/20/06 amplatzer septal occluder- serial #[id number] PIPE ORGAN MECHANIC APPRENTICE (ABSTRACTED) pneumonia several times SURGICAL PATHOLOGY EXAM 02/2012 excision of lipoma on chest wall ZZC VAGINAL HYSTERECTOMY 01/30/06 Social History Tobacco Use Smoking status: Never Passive exposure: Never Smokeless tobacco: Never Vaping Use Vaping status: Never Used Substance Use Topics Alcohol use: Not Currently Comment: minimal Drug use: No Family History Problem Relation Age of [...] of Blood Disease No family hx of Current Facility-Administered Medications: acetaminophen (TYLENOL) tablet 975 mg, 975 mg, Oral, TID, Raúl Cates MD, 975 mg at 05/19/24 0901 albuterol (PROVENTIL HFA/VENTOLIN HFA) inhaler, 2 puff, Inhalation, Q4H PRN, Christen Peng MD alum & mag hydroxide-simethicone (MAALOX) suspension 30 mL, 30 mL, Oral, Q4H PRN, Christen Peng MD aspirin EC tablet 162 mg, 162 mg, Oral, Daily, Christen Peng MD, 162 mg at 05/19/24 0901 bisacodyl (DULCOLAX) suppository 10 mg, 10 mg, Rectal, Daily PRN, Shruthi Tyson MD cetirizine (zyrTEC) tablet 10 mg, 10 mg, Oral, At Bedtime, Christen Peng MD, 10 mg at 05/18/242110 [Held by provider] divalproex sodium delayed-release (DEPAKOTE) DR tablet 500 mg, 500 mg, Oral, Daily, Raúl Cates MD, 500 mg at 05/18/24 1025 fluticasone-vilanterol (BREO ELLIPTA) 200-25 MCG/ACT inhaler 1 puff, 1 puff, Inhalation, Daily, Christen Peng MD, 1 puff at 05/19/24 0902 HYDROmorphone (DILAUDID) injection 0.2 mg, 0.2 mg, Intravenous, Q2H PRN, Christen Peng MD HYDROmorphone (PF) (DILAUDID) injection 0.5 mg, 0.5 mg, Intravenous, Q2H PRN, Raúl Cates MD IF patient diabetic - HOLD: ALL ORAL HYPOGLYCEMICS and include: glipizide, glyburide, glimepiride, gliclazide, metformin, any metformin containing medication, on day of the procedure, , Does not apply, HOLD, Christen Peng MD levETIRAcetam (KEPPRA) half-tab 375 mg, 375 mg, Oral, BID, Christen Peng MD, 375 mg at LORazepam (ATIVAN) tablet 0.5 mg, 0.5 mg, Oral, Q4H PRN, Shruthi Tyson MD magnesium oxide (MAG-OX) half-tab 200 mg, 200 mg, Oral, At Bedtime, Christen Peng MD, 200 mg at05/18/242110 meclizine (ANTIVERT) tablet 25 mg, 25 mg, Oral, TID PRN, Christen Peng MD naloxone (NARCAN) injection 0.2 mg, 0.2 mg, Intravenous, Q2 Min PRN OR naloxone (NARCAN) injection 0.4 mg, 0.4 mg, Intravenous, Q2 Min PRN OR naloxone (NARCAN) injection 0.2 mg, 0.2 mg, Intramuscular, Q2 Min PRN OR naloxone (NARCAN) injection 0.4 mg, 0.4 mg, Intramuscular, Q2 Min PRN, Vlad Rehman MD nitroGLYcerin (NITROSTAT) sublingual tablet 0.4 mg, 0.4 mg, Sublingual, Q5 Min PRN, Christen Peng MD ondansetron (ZOFRAN) injection 4 mg, 4 mg, Intravenous, Q6H PRN, Raúl Cates MD, 4 mg at 05/17/241809 [Held by provider] OXcarbazepine (TRILEPTAL) tablet 150 mg, 150 mg, Oral, At Bedtime, Stevo Islas MD oxyCODONE (ROXICODONE) tablet 5 mg, 5 mg, Oral, Q4H PRN, Christen Peng MD, 5 mg at 05/16/24 194 oxyCODONE IR (ROXICODONE) half-tab 2.5 mg, 2.5 mg, Oral, Q4H PRN, Christen Peng MD, 2.5 mg at 05/18/24 0110 pantoprazole (PROTONIX) EC tablet 40 mg, 40 mg, Oral, QAM AC, Christen Peng MD, 40 mg at 05/19/24 0622 polyethylene glycol (MIRALAX) Packet 17 g, 17 g, Oral, Daily, Shruthi Tyson MD, 17 g at 05/19/24 0902 prochlorperazine (COMPAZINE) injection 5 mg, 5 mg, Intravenous, Q6H PRN OR prochlorperazine (COMPAZINE) tablet 5 mg, 5 mg, Oral, Q6H PRN OR prochlorperazine (COMPAZINE) suppository 25 mg, 25 mg, Rectal, Q12H PRN, Raúl Cates MD psyllium (METAMUCIL/KONSYL) Packet 1 packet, 1 packet, Oral, Daily, Christen Peng MD, 1 packet at 05/19/24 0902 rosuvastatin (CRESTOR) tablet 20 mg, 20 mg, Oral, At Bedtime, Christen Peng MD, 20 mg at 05/18/242110 senna-docusate (SENOKOT-S/PERICOLACE) 8.6-50 MG per tablet 1 tablet, 1 tablet, Oral, BID PRN, Shruthi Tyson MD, 1 tablet at 05/18/242110 senna-docusate (SENOKOT-S/PERICOLACE) 8.6-50 MG per tablet 1 tablet, 1 tablet, Oral, BID PRN, Adamaris Harris MD, 1 tablet at 05/18/24 1209 sodium chloride (PF) 0.9% PF flush 1-10 mL, 1-10 mL, Intravenous, Q10 Min PRN, Christen Peng MD, 5 mL at 05/15/24 0932 traZODone (DESYREL) tablet 100 mg, 100 mg, Oral, At Bedtime, Christen Peng MD, 100 mg at 05/18/242110 Allergies: Allergies Allergen Reactions Codeine GI Disturbance Other Reaction(s): epigastric pain Mold Dizziness and GI Disturbance Morphine GI Disturbance Bupropion GI Disturbance and Other (See Comments) Diarrhea and stomach ache Erythromycin GI Disturbance Physical Examination: BP 127/70 (BP Location: Left arm) Pulse 68 Temp 98.3 ??F (36.8 ??C) (Oral) Resp 18 Ht 1.727m (5' 8) Wt 95 kg (209 lb 7 oz) LMP 01/07/2006 SpO2 98% BMI 31.84 kg/m?? Body mass index is 31.84 kg/m??. NEUROLOGICAL: MENTAL STATUS: Alert and oriented. Thought process and content unremarkable. Follows commands appropriately. Speech fluent. CN: II: Visual thomas intact. PERRLA. III, IV, : EOMI, some prominent end-gaze nystagmus V: Symmetric facial sensation to light touch. VII: Face symmetric. XII: Tongue midline with symmetric movements. MOTOR: RIGHT UE: LEFT UE Deltoid 5/5 5/5 Biceps 5/5 5/5 Triceps 5/5 5/5 Finger abd 5/5 5/5 RIGHT LE: LEFT LE: HF 5/5 5/5 PF 5/5 5/5 DF 5/5 5/5 SENSATION: Light touch intact and symmetric. CEREBELLAR: Normal F-N-F. No dysmetria. No nystagmus. GAIT: deferred Review of Diagnostics: I personally reviewed and interpreted the followin05/15/24 06:25 Sodium 141 Potassium 4.5 Chloride 106 Carbon Dioxide (CO2) 27 Urea Nitrogen 15.4 Creatinine 0.90 GFR Estimate 79 Calcium 9.1 Anion Gap 8 Complete Blood Count: Recent Labs Lab Test 05/15/24 0625 05/10/24 1434 03/03/24 1149 WBC 5.4 8.5 7.6 RBC 4.37 4.80 4.84 HGB 13.6 14.7 14.9 HCT 40.8 43.9 44.0 PLT 172 185 168 LYMPH 35 28 25 HgA1c: No results found for: A1C Thyroid Stimulating Hormone: Lab Results Component Value Date TSH 3.87 02/28/2024 TSH 2.96 01/04/2021 MRI Brain without and with contrast IMPRESSION: No restricted diffusion to suggest acute ischemia. Mild chronic small vessel ischemic changes. Small region of susceptibility abnormality which is stable from the prior study compatible with an area of remote hemosiderin deposition from either a remote insult or possibly a cavernous malformation in this area felt to be less likely. MRA Neck IMPRESSION: Normal MR angiogram of the neck. Impression: Ms. Zamora is a 48 year old female with history of stroke and a single definitve seizure last December presented with a variety of symptoms. Though after MRI was obtained, no apparent evidence for a new ischemic process. General neurology consulted to discuss her concerns about starting a new anti-seizure medication. I told her that, while she would be the ultimate decider, Dr. Barcenas's thought process made a lot of sense to me. With her stroke history, she should be on an anti-seizure medication. Jose Guadalupe not sure if these 'auras' are epileptic or not, but it stands to reason for her to increase her medication to a more usual therapeutic dose. And given the history of mood problems with levetiracetam, I thought this was a poor choice. Oxcarbazepine seems like a good option, though will obviously need to change plans if she encounters side effects. After talking it over, she seems more amenable to proceeding with the plan discussed at [facility]. I spent 59 minutes on the date of encounter with the patient and before and after the visit on activities detailed in the above note which may include reviewing the EMR, documenting clinical information, and communicating with other health acute care registered nurse. Michael Fernández MD (general neurology) Pgr [phone] 1. Gastroesophageal reflux disease with esophagitis without hemorrhage 2. Chest pain, unspecified type 3. Dural arteriovenous fistula 4. History of seizure 5. History of stroke 6. Pain of right upper extremity 7. Other constipation * Tate Coffey OTR - 05/18/2024 11:46 AM CDT 05/18/24 0940 Appointment Info Signing Clinician's Name / Credentials (OT) Tate Coffey, OTR/L Living Environment People in Home spouse Current Living Arrangements house Home Accessibility stairs within home Number of Stairs, Within Home, Primary greater than 10 stairs (Split level home, 9 stairs upstairs and 9 stairs to go down) Stair Railings, Within Home, Primary railings safe and in good condition Transportation Anticipated family or friend will provide Living Environment Comments Pt reports living in split level home w/ spouse. Bed/bath on upper level. Tub shower w/ grab bar. Self-Care Usual Activity Tolerance good Current Activity Tolerance fair Equipment Currently Used at Home grab bar, tub/shower Fall history within last six months no Activity/Exercise/Self-Care Comment Pt reports being IND w/ all ADL's at baseline prior to admission. Instrumental Activities of Daily Living (IADL) Previous Responsibilities housekeeping;laundry;medication management;finances IADL Comments Pt reports being IND w/ most IADL's at baseline. Spouse completes meal prep. General Information Onset of Illness/Injury or Date of Surgery 05/14/24 Referring Physician Raúl Cates MD Patient/Family Therapy Goal Statement (OT) Return to home. Additional Occupational Profile Info/Pertinent History of Current Problem Alcon Zamora is a 48 year old female with medical history significant for ischemic stroke, bihemispheric due to procedural complication after cerebral angiogram and right-sided weakness and numbness, poststroke generalized tonic-clonic seizure, intermittent frontal headaches, left sigmoid dural AV fistula, pulsatile tinnitus, fibromyalgia, MONAE, insomnia, history of ASD repair, well- controlled asthma was transferred to [facility] for evaluation of chest pain/pressure (ECG with t wave inversions but negative troponin and Lexiscan). Hospital course complicated by L sided weakness (negative stroke work up) and recurrence of pulsatile tinnitus/pounding YANG in setting of AV fistula. Neurosurgery consultedon 05/16/2024 with no plans for surgical intervention from their end but recommending to move [facility] neurosurgery appt to a sooner date than the one on ~07/2024. I have personally sent an [employer] in[employer] message to [facility] Neurosurgery group (Dr Zepeda and his LABORATORY MANAGER, Usha Simon) on 05/16/2024 to get an earlier appt. She is currently medically stable awaiting ARU placement Existing Precautions/Restrictions fall Cognitive Status Examination Orientation Status orientation to person, place and time Visual Perception Visual Impairment/Limitations corrective lenses full-time Impact of Vision Impairment on Function (Vision) Blurry vision Sensory Sensory Quick Adds sensation intact Pain Assessment Patient Currently in Pain Yes, see Vital Sign flowsheet (10 Pressure in head.) Range of Motion Comprehensive General Range of Motion no range of motion deficits identified Strength Comprehensive (MMT) General Manual Muscle Testing (MMT) Assessment upper extremity strength deficits identified Comment, General Manual Muscle Testing (MMT) Assessment Decreased strength throughout RUE Bed Mobility Comment (Bed Mobility) Pt up in chair on arrival Transfers Transfers sit-stand transfer;toilet transfer Sit-Stand Transfer Sit-Stand Braxton (Transfers) minimum assist (75% patient effort) Assistive Device (Sit-Stand Transfers) walker, front-wheeled Toilet Transfer Type (Toilet Transfer) stand-sit;sit-stand Braxton Level (Toilet Transfer) contact guard Assistive Device (Toilet Transfer) walker, front-wheeled Activities of Daily Living BADL Assessment/Intervention lower body dressing;grooming;toileting Lower Body Dressing Assessment/Training Position (Lower Body Dressing) unsupported sitting Comment, (Lower Body Dressing) SBA Grooming Assessment/Training Position (Grooming) sink side Comment, (Grooming) SBA Toileting Comment, (Toileting) SBA Clinical Impression Criteria for Skilled Therapeutic Interventions Met (OT) Yes, treatment indicated OT Diagnosis Decreased ADL independence and activity tolerance Influenced by the following impairments Decreased ADL independence OT Problem List-Impairments impacting ADL problems related to;activity tolerance impaired;balance;strength Assessment of Occupational Performance 3-5 Performance Deficits Identified Performance Deficits TB dressing, g/h sinkside, toileting, toilet transfer Planned Therapy Interventions (OT) ADL retraining;IADL retraining;strengthening;transfer training;home program guidelines;progressive activity/exercise;risk factor education Clinical Decision Making Complexity (OT) problem focused assessment/low complexity Risk & Benefits of therapy have been explained evaluation/treatment results reviewed;care plan/treatment goals reviewed;risks/benefits reviewed;current/potential barriers reviewed;patient OT Total Evaluation Time OT Eval, Low Complexity Minutes (13951) 10 OT Goals Therapy Frequency (OT) Daily OT Predicted Duration/Target Date for Goal Attainment 05/25/24 OT Goals Hygiene/Grooming;Upper Body Dressing;Lower Body Dressing;Toilet Transfer/Toileting;OT Goal1 OT: Hygiene/Grooming modified independent;while standing OT: Upper Body Dressing Modified independent;including set-up/clothing retrieval OT: Lower Body Dressing Modified independent;including set-up/clothing retrieval OT: Toilet Transfer/Toileting Modified independent;toilet transfer;cleaning and garment management OT: Goal 1 Patient will be able to independently complete BUE HEP to increase strengthening w/ 0 VC's. Self-Care/Home Management Self-Care/Home Mgmt/ADL, Compensatory, Meal Prep Minutes (42575) 23 Symptoms Noted During/After Treatment (Meal Preparation/Planning Training) fatigue Treatment Detail/Skilled Intervention OT: Greeted pt sitting up in bedside chair and they were agreeable for OT evaluation. Pt very pleasant throughout. Pt reporting 3/10 pain in head and states it is pressure. Pt continues to report increased blurry vision. Pt doffed/donned B socks while seated w/ SBA via cross leg method. Min A sit > stand edge of chair w/ use of FWW. Upon standing, pt w/ retrolean requiring Min A to maintain balance. Once stable, pt ambulated within room to/from bathroom w/ CGA and completed toilet transfer w/ use of grab bar on R side. Following completion, pt stood and ambulated to sink w/ education on safe walker placement. Pt completed 1 g/h task w/ SBA for safety. Pt then returned to room and seated in bedside chair w/ cues to reach back to arm rest to control decent down. Pt remained seated in chair w/ all needs met and chair alarm activated. OT Discharge Planning OT Plan Standing tolerance for g/h sinkside, BUE HEP, TB dressing OT Discharge Recommendation (DC Rec) Acute Rehab Center-Motivated patient will benefit from intensive, interdisciplinary therapy. Anticipate will be able to tolerate 3 hours of therapy per day OT Rationale for DC Rec Pt currently functioning below baseline d/t decreased activity tolerance. Anticipate pt would benefit from continued rehab at ARU setting as pt very motivated ot return to baseline and has good support at home. OT Brief overview of current status Goals of therapy will be to address safe mobility and make recsfor d/c to next level of care. Pt and RN will continue to follow all falls risk precautions as documented by staff nurse icu resource team while hospitalized. Total Session Time Timed Code Treatment Minutes 23 Total Session Time (sum of timed and untimed services) 33 * Isabel Campbell MSW - 05/18/2024 11:39 AM CDT Care Management Follow Up Length of Stay (days): 2 Expected Discharge Date: 05/19/2024 Concerns to be Addressed: discharge planning Patient plan of care discussed at interdisciplinary rounds: Yes Anticipated Discharge Disposition: ARU Referrals Placed by CM/GUILLERMO: ARU Private pay costs discussed: Not applicable Discussed ???Partnership in Safe Discharge Planning??? document with patient/family: No Handoff Completed: Yes, [facility] PCP: Internal handoff referral completed Additional Information: GUILLERMO met with patient to discuss recommendation for ARU. She was at [facility] in January of this year and had a 6 day stay, which she said helped her immensely and she was very pleased with the program.She is hopeful that she can return again upon discharge. She resides in a home with her adult son and and they work about 10-12 hour days, leaving her alone from 4 am - 6 am each day. Discussed that she was going to outpatient therapies prior to this hospitalization and could no longer attend because she didn't have transport. Referral sent for ARU. Patient has had bad experiences in the past with [facility] and is hesitant to go to one, but said that if [facility] has a long wait she may consider other ARU programs. Next Steps: hear back from [facility] ARU on appropriateness and wait list and update patient Yuli LANE Campbell, ENERGY CONSULTANT Social Work [facility] * Shruthi Tyson MD - 05/18/2024 8:31 AM CDT [facility] Medicine Progress Note - Hospitalist Service [...] repair, well- controlled asthma was transferred to [facility] for evaluation of chest pain/pressure (ECG with t wave inversions but negative troponin and Lexiscan). Hospital course complicated by L sided weakness (negative stroke work up) and recurrence of pulsatile tinnitus/pounding YANG in setting of AV fistula. Neurosurgery consulted on 05/16/2024 with no plans for surgical intervention from their end but recommending to move [facility] neurosurgery appt to a sooner date than the one on ~07/2024. I have personally sent an Crude Area in[employer]zzient message to [facility] Neurosurgery group (Dr Zepeda and his LABORATORY MANAGER, Usha Simon) on 05/16/2024 to get an earlier appt. She is currently medically stable awaiting ARU placement Type 1 L sigmoid dural AV fistula - Sx: L pulsatile tinnitus, headache and ?gait issues - Follows [facility] Neurosurgery (last virtual visit 02/12/[address] Robin Zepeda with no plans for surgical intervention given resolution of L tinnitus) - Neurosurgery signed off 05/16/2024 with no acute interventions planned Plan - Symptomatic control until she can reach outpt appointment with Dr Zepeda at [facility]. [employer] in-Liz[employer] message sent on 05/16/2024 to [facility] group to move outpt appt earlier than initial one on ~07/2024 - Pain regimen: Tylenol TID, Oxy PRN and Dilaudid IV PRN - PT recommending ARU; SW/CM to assist with this Chest pain - resolved -Troponin x 2 negative, D-dimer negative. EKG showed T inversion in inferior leads. - lexiscan 05/15/2024: No inducible myocardial ischemia with normal LV function - Cardiology signed off 05/15/2024 with final recs of proceeding with CT coronary angio outpt if with persistent symptoms -Continue TABLE OPERATOR aspirin and statin Left arm heaviness, tingling, [...] Brain/Neck without new infarcts Plan - continue TABLE OPERATOR ASA 162 mg daily and TABLE OPERATOR statin (Crestor 20 mg daily) for secondary stroke prevention - Neuro signed off with final recs of outpt follow up in 6-8 weeks and starting Depakote 500mg po daily (possible suspicions of migraine). See further discussion below, patient is not interested in beginning another anticonvulsant medication. Depakote put on hold. Post stroke generalized tonic-clonic seizure - Continue TABLE OPERATOR Keppra 375 mg twice daily -Patient had an office consultation with Dr. Barcenas on 05/05/2024. He wanted her to ultimately taper and discontinue levetiracetam and started oxcarbazepine. She does not want to take oxcarbazepine. She believes she would potentially tolerate levetiracetam at a slightly higher dose, i.e. 500 mg twicedaily. We discussed getting a second opinion regarding anticonvulsants. For now, hold oxcarbazepine (she has been refusing) and Depakote Stable medical conditions: Fibromyalgia MONAE Insomnia : Continue TABLE OPERATOR trazodone 100 mg at bedtime History of ASD repair Well-controlled asthma Diet: Regular Diet Adult DVT Prophylaxis: Pneumatic Compression Devices [place]antoja Catheter: Not present Lines: None Cardiac Monitoring: None Code Status: Full Code Clinically Significant Risk Factors # Obesity: Estimated body mass index is 31.84 kg/m?? as calculated from the following: Height as of this encounter: 1.727 m (5' 8). Weight as of this encounter: 95 kg (209 lb 7 oz)., PRESENT ON ADMISSION # Financial/Environmental Concerns: none # Asthma: noted on problem list Disposition Plan Medically Ready for Discharge: Pending ARU placement Shruthi Tyson M.D. Hospitalist [facility] Securely message with the [employer] Console (learn more here) Text page via [employer] Paging/Directory Interval History I had a weird night. They told me to tell you about it. Patient says she woke up with facial painand was given oxycodone 2.5 mg. After that, she had a weird dream, that felt more like a hallucination. She had some tingling in her face and saw flashing lights, which has been a precursor to a seizure in the past. She recounted in some detail her office visit with Dr. Barcenas, she did not feel that he listened to her and she does not want to follow with him or take Trileptal. She is also bothered by constipation. Physical Exam Vital Signs: Temp: 98.1 ??F (36.7 ??C) Temp src: Oral BP: 120/66 Pulse: 65 Resp: 16 SpO2: 95 % O2 Device: None (Room air) Weight: 209 lbs 6.99 oz Constitutional: Awake, alert, cooperative, no apparent distress Respiratory: Clear to auscultation bilaterally, no crackles or wheezing Cardiovascular: Regular rate and rhythm, normal S1 and S2, and no murmur noted GI: Normal bowel sounds, soft, non-distended, non-tender Skin/Integumen: No rash on exposed skin. No lower extremity edema Other: Mood is very pleasant, but she is frustrated Medical Decision Making 40 MINUTES SPENT BY ME on the date of service doing chart review, history, exam, documentation & further activities per the note. Data Imaging results reviewed over the past 24 hrs: No results found for this or any previous visit (from the past 24 hour(s)). * Honorio Santamariayla, PT - 05/17/2024 1:24 PM CDT 05/17/24 0900 Appointment Info Signing Clinician's Name / Credentials (PT) Jackie Santamaria, PT, DPT Quick Adds Quick Adds Vestibular Eval Living Environment People in Home spouse Current Living Arrangements house Home Accessibility stairs within home Number of Stairs, Within Home, Primary greater than 10 stairs (Pt reports a split level home so 9 stairs to go upstairs or 9 to go downstairs) Stair Railings, Within Home, Primary railings safe and in good condition Transportation Anticipated family or friend will provide Living Environment Comments Pt lives in a split level home with her spouse, reports 9 stairs in either direction. Self-Care Usual Activity Tolerance good Current Activity Tolerance fair Regular Exercise Yes Activity/Exercise Type walking (Pt reports she was attending OP PT but had dicharged from this in February) Equipment Currently Used at Home grab bar, tub/shower Fall history within last six months no Activity/Exercise/Self-Care Comment Pt reports she has a FWW at home from previous stroke, had progressed to IND without an AD. Pt was INd with all ADL's and mobility following rehab. General Information Onset of Illness/Injury or Date of Surgery 05/14/24 Referring Physician Vlad Rehman MD Patient/Family Therapy Goals Statement (PT) To move better Pertinent History of Current Problem (include personal factors and/or comorbidities that impact thePOC) Pt is a 48 year old female with medical history significant for ischemic stroke, bihemisphericdue to procedural complication after cerebral angiogram and right-sided weakness and numbness, poststroke generalized tonic-clonic seizure, intermittent frontal headaches, left sigmoid dural AV fistula, pulsatile tinnitus, fibromyalgia, MONAE, insomnia, history of ASD repair, well-controlled asthma was transferred to [facility] for evaluation of chest pain/pressure (ECG with t wave inversions but negative troponin and Lexiscan). Hospital course complicated by L sided weakness (negative stroke work up) and recurrence of pulsatile tinnitus/pounding YANG in setting of AV fistula. Neurosurgery consulted on 05/16/2024 Existing Precautions/Restrictions fall Cognition Affect/Mental Status (Cognition) WFL Orientation Status (Cognition) oriented x 3 Follows Commands (Cognition) WFL Pain Assessment Patient Currently in Pain No Integumentary/Edema Integumentary/Edema no deficits were identifed Posture Posture Forward head position;Protracted shoulders Range of Motion (ROM) Range of Motion ROM deficits secondary to weakness Strength (Manual Muscle Testing) Strength (Manual Muscle Testing) Deficits observed during functional mobility Strength Comments Pt demonstrated 5/5 strength on B LE Bed Mobility Comment, (Bed Mobility) Supine>Sitting EOB completed w/ CGA-Min ax1, pt demonstrated slight L sided lean when moving to sitting Transfers Comment, (Transfers) Sit>stand completed w/ Min AX1, pt demonstrated significant retrolean when first standing Gait/Stairs (Locomotion) Comment, (Gait/Stairs) Pt ambulated w/ Min Ax1 without an AD Sensory Examination Sensory Perception other (describe) Sensory Perception Comments Pt reports numbness in B LE while ambulating Coordination Coordination other (see comments) Coordination Comments Pt demonstrated signifcant dyscoordination and impaired propricaption while ambulating Muscle Tone Muscle Tone no deficits were identified Oculomotor Exam Ocular ROM Normal Smooth Pursuit Normal Saccades Normal VOR Normal Clinical Impression Criteria for Skilled Therapeutic Intervention Yes, treatment indicated PT Diagnosis (PT) Impaired functional mobility Influenced by the following impairments Weakness, impaired activity tolerance, impaired balance, impaired coordinationa nd proprioception Functional limitations due to impairments Impaired gait and inability to complete ADL's Clinical Presentation (PT Evaluation Complexity) stable Clinical Presentation Rationale Clinical judgment Clinical Decision Making (Complexity) low complexity Planned Therapy Interventions (PT) balance training;bed mobility training;gait training;home exercise program;motor coordination training;neuromuscular re- education;patient/family education;postural re-education;ROM (range of motion);stair training;strengthening;stretching;transfer training;progressive activity/exercise;risk factor education;home program guidelines Risk & Benefits of therapy have been explained evaluation/treatment results reviewed;care plan/treatment goals reviewed;risks/benefits reviewed;current/potential barriers reviewed;participants voiced agreement with care plan;participants included;patient PT Total Evaluation Time PT Eval, Low Complexity Minutes (64439) 10 Physical Therapy Goals PT Frequency Daily PT Predicted Duration/Target Date for Goal Attainment 05/24/24 PT Goals Bed Mobility;Transfers;Gait;Stairs PT: Bed Mobility Independent;Supine to/from sit;Rolling;Bridging;Within precautions PT: Transfers Modified independent;Sit to/from stand;Bed to/from chair;Assistive device;Within precautions PT: Gait Independent;Greater than 200 feet;Within precautions PT: Stairs Modified independent;Rail on both sides;9 stairs Interventions Interventions Quick Adds Gait Training;Therapeutic Activity Therapeutic Activity Therapeutic Activities: dynamic activities to improve functional performance Minutes (99834) 10 Treatment Detail/Skilled Intervention Evaluation completed adn treatment indicated. Supine>sitting EOB completed w/ CGA, cues given for technique throguhout. Once sitting EOB, pt demosntrated slight L sided lean, able to recover with cueing. Pt able to kleber socks and tennis shoes w/ CGA. Sit>Stand completed w/ Min-Mod Ax1 as pt demonstrated significant retrolean in standing, cued for weightshiftng to maintain balance, this improved balance. Post- ambulation, pt cued to reach abck for chair armrests to control descent in sitting. Pt educated on FWW usage at this time, adjusted to proper height for pt. Pt also educated on discharge planning, pt in agreement with ARU. Pt left sitting in chair with all needs in reach and chair alarm on, RN notified. Gait Training Gait Training Minutes (14618) 15 Symptoms Noted During/After Treatment (Gait Training) fatigue Treatment Detail/Skilled Intervention Pt ambulated w/o an AD and requiring Min- Mod Ax1 initially. Pt demonstrated ataxic gait throughout, requiring downward gaze to maintain stability. Cues provided for forward gaze, wide POORNIMA and increased step length throughout. Pt then trialed ambulation w/ FWW, d emonstrated improved forward gaze, still requiring intermittent Min Ax1 for stability throughout. Pt completed stair training x 8 steps w/ B railing support and CGA. Cues given for step to stair pattern. PT Discharge Planning PT Plan Progress ambulation w/ vs w/o AD, coordination tasks in front of mirror, PT Discharge Recommendation (DC Rec) Acute Rehab Center-Motivated patient will benefit from intensive, interdisciplinary therapy. Anticipate will be able to tolerate 3 hours of therapy per day PT Rationale for DC Rec Pt is moving below baseline mobility, currently requiring Ax1 and FWW for all functional mobility at this time due to impaired coordination, impaired proprioception and impaired balance at this time. Recommend ARU upon discharge in order to further address deficits prior to r eturning home. Pt seems to have supportive family and is motivated to return to previous IND. PT Brief overview of current status Min Ax1 w/ FWW; Goals of therapy will be to address safe mobility and make recs for d/c to next level of care. Pt and RN will continue to follow all falls risk precautions as documented by staff nurse icu resource team while hospitalized. Total Session Time Timed Code Treatment Minutes 25 Total Session Time (sum of timed and untimed services) 35 * Raúl Cates MD - 05/17/2024 8:39 AM CDT [facility] Medicine Progress Note - Hospitalist Service [...] repair, well- controlled asthma was transferred to [facility] for evaluation of chest pain/pressure (ECG with t wave inversions but negative troponin and Lexiscan). Hospital course complicated by L sided weakness (negative stroke work up) and recurrence of pulsatile tinnitus/pounding YANG in setting of AV fistula. Neurosurgery consulted on 05/16/2024 with no plans for surgical intervention from their end but recommending to move [facility] neurosurgery appt to a sooner date than the one on ~07/2024. I have personally sent an [employer] in-basket message to [facility] Neurosurgery group (Dr Zepeda and his LABORATORY MANAGER, Usha Simon) on 05/16/2024 to get an earlier appt. She is currently medically stable awaiting ARU placement Type 1 L sigmoid dural AV fistula - Sx: L pulsatile tinnitus, headache and ?gait issues - Follows [facility] Neurosurgery (last virtual visit 02/12/[address] Robin Zepeda with no plans for surgical intervention given resolution of L tinnitus) - Neurosurgery signed off 05/16/2024 with no acute interventions planned Plan - Symptomatic control until she can reach outpt appointment with Dr Zepeda at [facility]. [employer] in-basket message sent on 05/16/2024 to [facility] group to move outpt appt earlier than initial one on ~07/2024 - Pain regimen: Tylenol TID, Oxy PRN and Dilaudid IV PRN - PT recommending ARU; SW/CM to assist with this Chest pain - resolved -Troponin x 2 negative, D-dimer negative. EKG showed T inversion in inferior leads. - lexiscan 05/15/2024: No inducible MY with normal LV function - Cardiology signed off 05/15/2024 with final recs of proceeding with CT coronary angio outpt if with persistent symptoms -Continue TABLE OPERATOR aspirin and statin Left arm heaviness, tingling, [...] of outpt follow up in 6-8 weeks and starting Depakote 500mg daily PO (possible suspicions of migraine) Stable medical conditions: Resume medications when verified. Post stroke generalized tonic-clonic seizure Fibromyalgia MONAE Insomnia History of ASD repair Well-controlled asthma Diet: Regular Diet Adult DVT Prophylaxis: Pneumatic [...] Disposition Plan Medically Ready for Discharge: Pending ARU placement Raúl Cates DO [facility] Hospitalist Interval History Overnight with slight YANG prompting oxycodone x1 ~1900. No dilaudid IV use overnight. On evaluation this am, is resting on the bed comfortably. at bedside. She states her YANG is still improved from yesterday. Still with ongoing tinnitus. Today she is now experiencing a feeling of pressure to her L ear with intermittent hearing difficulties. No actual ear drainage or dischargenoted. Physical Exam Vital Signs: Temp: 97.3 ??F (36.3 ??C) Temp src: Oral BP: 138/84 Pulse: 72 Resp: 14 SpO2: 94 % O2 Device: None (Room [...] time. Psychiatric: Mood and Affect: Mood normal. Medical Decision Making 63 MINUTES SPENT BY ME on the date of service doing chart review, history, exam, documentation & further activities per the note. Data Imaging results reviewed over the past 24 hrs: No results found for this or any previous visit (from the past 24 hour(s)). * Raúl Cates MD - 05/16/2024 4:32 PM CDT [facility] Medicine Progress Note - Hospitalist Service [...] repair, well- controlled asthma was transferred to [facility] for evaluation of chest pain/pressure (ECG with t wave inversions but negative troponin and Lexiscan). Hospital course complicated by L sided weakness (negative stroke work up) and recurrence of pulsatile tinnitus/pounding YANG in setting of AV fistula. Neurosurgery consulted on 05/16/2024 Type 1 L sigmoid dural AV fistula - Sx: L pulsatile tinnitus and headache - Follows [facility] Neurosurgery (last virtual visit 02/12/[address] [...] angio outpt if with persistent symptoms -Continue TABLE OPERATOR aspirin and statin Left arm heaviness, tingling, [...] test complete., - Seen and cleared by investment consultant if applicable, - Adequate pain control [...] for Discharge: Pending evaluation by neurosurgery DO Carlo Brink Hospitalist Interval History On evaluation this am, [...] Temp src: Oral BP: (!) 159/89 (pt talkzuleima mariscal MD during reading) Pulse: 68 Resp: [...] their note for plan. RN-RN handover completed, Ryder Watts. * Sudhakar Evangelista RN - 05/16/2024 6:34 [...] complete: Met - Seen and cleared by investment consultant if applicable: Not met - Adequate [...] complete. Yes - Seen and cleared by investment consultant if applicable No - Adequate pain [...] Danna Cardenas PA-C 2:57 PM 05/15/[address] [facility] * Shawna Leos RN - 05/15/2024 11:25 AM CDT List all goals to be met before discharge home: - Serial troponins and stress test complete. Yes - Seen and cleared by investment consultant if applicable No - Adequate pain [...] time of transfer. * Delicia Saini APRN CNP - 05/15/2024 7:10 AM CDT [facility] Medicine Progress Note - Hospitalist Service [...] repair, well- controlled asthma was transferred to [facility] for evaluation of chest pain/pressure and registered under observation on 05/14/2024. Chest pain -Chest pressure/pain, radiating to left arm and neck starting yesterday morning. -Troponin x 2 negative, D-dimer negative. EKG showed T inversion in inferior leads. - lexiscan completed, results pending -Continue TABLE OPERATOR aspirin and statin -Telemetry - HgbA1c 5.3 [...] No acute process noted with imaging. -Continue TABLE OPERATOR aspirin and statin. -patient reports feeling of [...] test complete., - Seen and cleared by investment consultant if applicable, - Adequate pain control [...] the Attending Physician, Dr. Delarosa . Delicia Saini,MELISA HOPKINSN [facility] Hospitalist Service [facility] Securely message with [employer] (more info) Text page via [facility] Paging/Directory Interval History This morning, patient [...] Predicted HR 62 Rate Pressure Product 15,552.0 Cosigned by Mary Anne Delarosa MD at 05/15/2024 1:53 PM CDT Associated attestation - Mary Anne Delarosa MD [...] complete: Met - Seen and cleared by investment consultant if applicable: Not met - Adequate [...] complete: Met - Seen and cleared by investment consultant if applicable: Not met - Adequate [...] complete: Met - Seen and cleared by investment consultant if applicable: Not met - Adequate pain control on oral analgesia: Partially Met - Vital signs normal or at patient baseline: Met - Safe disposition plan has been identified: Not met - Nurse to notify provider when observation goals have been met and patient is ready for discharge. * Chinedu Mejia MD - 05/14/2024 5:08 PM CDT Transfer Type: [facility] Transfer Triage Note Date of call: 05/14/24 Time of call: 5:08 PM Current Patient Location: [place] Current Level of Care: ED Vitals:Normal per [...] Arrival for Transfer: 0-8 hours Arrival Location: [facility] Recommendations for Management and Stabilization: Not needed Additional Comments: Chest pain, EKG with new Twave inversions, negative troponin x 2, ED discussedwith cardiology Dr. Jalloh recommended admission, likely inpatient stress test Chinedu Mejia MD documented in this encounter H&P Notes * Christen Peng MD - 05/14/2024 9:22 PM CDT [facility] History and Physical - Hospitalist Service Date [...] repair, well- controlled asthma was transferred to [facility] for evaluation of chest pain/pressure and registered under observation on 05/14/2024. Chest pain Chest pressure/pain, radiating to left arm and neck starting yesterday morning. Troponin x 2 negative, D-dimer negative. EKG showed T inversion in inferior leads. Rowley nausea and abdominal pain afterIV morphine and received Toradol. -[place] under observation -Troponin x 2 negative, will order stress test. -Continue TABLE OPERATOR aspirin and statin -Telemetry, check HbA1c and [...] upset and reduced to81 Mg daily. -Continue TABLE OPERATOR aspirin and statin -Had repeat MRI earlier [...] Anticipated Tomorrow Christen Peng MD Hospitalist Service [facility] Securely message with [employer] (more info) Text page via [facility] Paging/Directory Chief Complaint Chest pain/pressure History [...] repair, well- controlled asthma was transferred to [facility] for evaluation of chest pain/pressure Patient [...] She dropped to the emergency department in [place]. Noted she was mildly hypertensive. 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 C PIPE ORGAN MECHANIC APPRENTICE PROCEDURE DATE: 2000 tubal ligation C PIPE ORGAN MECHANIC APPRENTICE PROCEDURE DATE: 1994 D&C CARDIAC SURGERY 06/2006 heart defect repair ESOPHAGOSCOPY, GASTROSCOPY, DUODENOSCOPY (EGD), COMBINED N/A 02/08/2021 Procedure: ESOPHAGOGASTRODUODENOSCOPY (EGD); Surgeon: Tuan Miller MD; Location: GI GI SURGERY 09/2020 gallbladder removed HC KNEE SCOPE,MED/LAT MENISECTOMY 08/04/13 LT HEART CATH, CLOSURE ATRIAL SEPTAL DEFECT 06/20/06 amplatzer septal occluder- serial #[id number] RW PIPE ORGAN MECHANIC APPRENTICE (ABSTRACTED) pneumonia several times SURGICAL PATHOLOGY EXAM 02/2012 excision of lipoma on chest wall [facility] VAGINAL HYSTERECTOMY 01/30/06 Prior to Admission Medications [...] documented in this encounter Consult Notes * Isabel Campbell MSW - 05/18/2024 8:28 AM CDTAssociated Order(s): CARE MANAGEMENT / SOCIAL WORK IP CONSULT Clearing duplicate consult - care management consulted again for discharge planning; care management is already following. Please see note Date of Service: 05/16/2024 3:15 PM written by Jovita Castro RN Case Manager. 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 Zepeda at [facility] # Hx ischemic strokes 12/2023 following cerebral angiogram # Post-stroke seizures # Rob-Danlos syndrome Ms. Zamora is a pleasant 48 y.o. female currently admitted with presenting symptoms of left-sided chest wall pressure as well as worsening headaches, fleeting neurologic symptoms when headaches are severe (left upper/lower extremity tingling, blurred vision) and intermittent pulsatile tinnitus. Her w ork-up here has been reassuring. With hx of type 1 dural fistula, we have recommend reaching out toprimary neurovascular team at [facility] regarding ongoing symptoms Neurosurgery plan: -No indication for Neurosurgical intervention with our [place] Neurosurgery Team -Recommend reaching out to [facility] Neurovascular team for further guidance and possible prompt outpatient follow-up with Dr. Zepeda's team Case reviewed with Dr. Newell. Discussed with hospitalist. Neurosurgery will sign off but please do not hesitate to reach out with further questions/new concerns. Thank you for having us be involved in the care of Alcon Zamora. Nina Dennis PA-C [facility] Neurosurgery Please page on-call service with additional questions or concerns. HPI: Alcon Zamora is a pleasant 48 year old female who presented to [facility] ED left-sided chest wall pain and worsening headaches. Her history is notable for rob-danlos syndrome as well as known type I left sigmoid dural AV fistula. In review of her chart, this was discovered with cerebral angiogram in 12/2023 for work-up for pulsatile tinnitus. Unfortunately, she developed ischemic strokes following the angiogram. Also with history of strokes. She follows with Dr. Zepeda at [facility] for her type 1 dural fistula, last seen 01/2024 with plan for ongoing observation. Ms. Zamora was seen this afternoon by Neurosurgery per request of hospitalist. She explains that rupertohas had nine days of symptoms involving severe headaches and a variety of neurologic complaints. She was initially seen 05/08 at local ED for headache with associated gait changes. Brain MRI ruled outacute findings. She then presented to [facility] ED on 05/10 due to severe headache with associated dizziness. Was seen by Stroke Neurology, brain MRI, head CT and head CTA unremarkable. She was then seen at local ED for left-sided chest wall pain and transferred to [facility] for cardiac work-up on 05/14. Cardiac work-up was unremarkable. While hospitalized here, she has struggled with intermittent headaches. When headaches get severe (10/10), she feels that her face is going to explode. Shedevelops left arm and leg tingling when headache is severe as well as blurred vision. She has also noted return of bilateral pulsatile tinnitus when she lays down at night. This is not appreciated when upright during daytime hours. She is currently comfortable with headache at 5/10 (headache responded well to oxycodone this afternoon). 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 C PIPE ORGAN MECHANIC APPRENTICE PROCEDURE DATE: 2000 tubal ligation C PIPE ORGAN MECHANIC APPRENTICE PROCEDURE DATE: 1994 D&C CARDIAC SURGERY 06/2006 heart defect repair ESOPHAGOSCOPY, GASTROSCOPY, DUODENOSCOPY (EGD), COMBINED N/A 02/08/2021 Procedure: ESOPHAGOGASTRODUODENOSCOPY (EGD); Surgeon: Tuan Miller MD; Location: GI GI SURGERY 09/2020 gallbladder removed HC KNEE SCOPE,MED/LAT MENISECTOMY 08/04/13 LT HEART CATH, CLOSURE ATRIAL SEPTAL DEFECT 06/20/06 amplatzer septal occluder- serial #[id number] RW PIPE ORGAN MECHANIC APPRENTICE (ABSTRACTED) pneumonia several times SURGICAL PATHOLOGY EXAM 02/2012 excision of lipoma on chest wall [facility] VAGINAL HYSTERECTOMY 01/30/06 Allergies Allergen Reactions Codeine GI Disturbance Other Reaction(s): epigastric pain Mold Dizziness and GI Disturbance Morphine GI Disturbance Bupropion GI Disturbance and Other (See Comments) Diarrhea and stomach ache Erythromycin GI Disturbance Social History Tobacco Use Smoking status: Never [...] of Blood Disease No family hx of Scheduled Medications Current Facility-Administered Medications Medication Dose Route Frequency Provider Last Rate Last Admin acetaminophen (TYLENOL) tablet 975 mg 975 mg Oral TID Raúl Cates MD 975 mg at 05/16/24 1530 aspirin EC tablet 162 mg 162 mg Oral Daily Christen Peng MD 162 mg at 05/16/24 0808 cetirizine (zyrTEC) tablet 10 mg 10 mg Oral At Bedtime Christen Peng MD 10 mg at 05/15/242206 fluticasone-vilanterol (BREO ELLIPTA) 200-25 MCG/ACT inhaler 1 puff 1 puff Inhalation Daily Christen Peng MD 1 puff at 05/16/24 0808 levETIRAcetam (KEPPRA) half-tab 375 mg 375 mg Oral BID Christen Peng MD 375 mg at 05/16/24 1055 magnesium oxide (MAG-OX) half-tab 200 mg 200 mg Oral At Bedtime Christen Peng MD 200 mg at 05/15/242206 OXcarbazepine (TRILEPTAL) tablet 150 mg 150 mg Oral At Bedtime Stevo Islas MD pantoprazole (PROTONIX) EC tablet 40 mg 40 mg Oral QAM AC Christen Peng MD 40 mg at 05/16/24 0757 psyllium (METAMUCIL/KONSYL) Packet 1 packet 1 packet Oral Daily Christen Peng MD 1 packet at 05/16/24 0809 rosuvastatin (CRESTOR) tablet 20 mg 20 mg Oral At Bedtime Christen Peng MD 20 mg at 05/15/24 220 traZODone (DESYREL) tablet 100 mg 100 mg Oral At Bedtime Christen Peng MD 100 mg at 05/15/24 2207 Home Medications Reviewed. ROS: 10 point ROS neg other than the symptoms noted above in the HPI. Vitals: BP (!) 159/89 Pulse 68 Temp 98 ??F (36.7 ??C) (Oral) Resp 16 Ht 1.727 m (5' 8) Wt 95 kg (209 lb 7 oz) LMP 01/07/2006 SpO2 96% BMI 31.84 kg/m?? Body mass index is 31.84 kg/m??. I/O last 3 completed shifts: In: 240 [P.O.:240] Out: - EXAM: Pt in bed 1712. She appears comfortable and in no apparent distress, moving all extremities. CN II-XII intact, alert and appropriate with conversation and following commands. No facial asymmetry, tongue protrudes midline. Able to name 3/3 objects. Oriented to self and location. Finger to nose slow and accurate. Rapid hand movements intact. Absent for upper extremity drift. Bilateral upper extremities 5/5 strength. Sensation intact throughout. Bilateral lower extremities 5/5 strength. Sensation intact throughout. Negative for clonus. Negative babinski. IMAGING: *I personally reviewed images Brain MRI (05/15/24) IMPRESSION: No restricted diffusion to suggest acute ischemia. Mild chronic small vessel ischemic changes. Small region of susceptibility abnormality which is stable from the prior study compatible with an area of remote hemosiderin deposition from either a remote insult or possibly a cavernous malformation in this area felt to be less likely. MRA neck (05/15/24) IMPRESSION: Normal MR angiogram of the neck. Head MRA (05/15/24) IMPRESSION: No hemodynamically significant stenosis in the head or evidence of acute vascular injury. Available labs at time of consult: Reviewed Cosigned by Jeevan Newell MD at 05/18/2024 10:58 AM CDT Associated attestation - Jeevan Newell MD - 05/18/2024 10:58 AM CDT Physician Attestation I have reviewed and discussed with the advanced practice provider their history, physical and plan for Alcon Zamora. I did not participate in a shared visit; this is an advanced practice provider only visit. Jeevan Newell MD Date of Service (when I saw the patient): I did not personally see this patient today. * Jovita Castro, RN - 05/16/2024 3:15 PM CDTAssociated Order(s): [...] Communication Assessment Patient's communication style: spoken language (British or Bilingual) Hearing Difficulty or Deaf: no [...] ex-partner?: No Stress: Stress Concern Present (02/28/2024) Citizen Of [place] [employer] - Occupational Stress Questionnaire [...] 16 hours per week. 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 This past Saturday, pt applied for short [...] assist with dischargerecommendations. Jovita Castro RN, BS Skein Inspector [email or web address] * Stevo Islas MD - 05/15/2024 2:11 PM CDTAssociated Order(s): NEUROLOGY IP STROKE CONSULT Images from the original note were not included. [facility] Stroke Consult Note Reason for Consult: Left sided numbness/weakness Chief Complaint: No chief complaint on file. CRICKET Zamora is a 48 year old female with PMHx of atrial septal defect s/p repair, Euler Danlos syndrome, left sigmoid aVF and IR angiogram complicated by strokes, right ICA dissection and seizures presents to outside ED with chest pain and chest pressure. She was transferred to [facility] for cardiology workup. Stroke neurology were consulted today for left arm and face numbness, patient is a poor historian given cognitive deficits from her prior stroke, she states that yesterday evening at around 6 PM she had left upper and lower extremity numbness and feeling heavy. She also had blurry vision and dizziness. She states that she had a headache at around middle of the night. She also endorses having ambulatory difficulties. Stroke Evaluation Summarized MRI/Head CT MRI brain was negative for any acute Intracranial Vasculature was negative for any large vessel occlusion or hemodynamically significantstenosis Cervical Vasculature Was negative for any large vessel occlusion or any hemodynamically significantstenosis Echocardiogram N/A EKG/Telemetry Sinus rhythm Possible Left atrial enlargement Borderline ECG Other Testing Not Applicable LDL 05/15/2024: 82 mg/dL A1C No lab value available in past 90 days Troponin No lab value available in past 48 hrs Impression L sided numbness/heaviness Further recs pending attending eval Patient Follow-up - in 6-8 weeks with general neurology ([phone]) Thank you for this consult. The Stroke Staff is Dr. GRIFFITH. Stevo Islas MD Vascular Neurology Fellow To page me or covering stroke neurology sales team recruiter, click here: AMCOM Choose Broadcast Transmitter Operator tab at top, then select NEUROLOGY/ALL SITES [...] disc disease), cervical 02/07/2017 Depressive disorder 2001 Rob-Danlos syndrome Excessive or frequent menstruation 01/31/2006 Hospitalized [...] needed for mild pain or headaches 01/24/24 Yes Danya You PA albuterol (PROAIR HFA/PROVENTIL HFA/VENTOLIN HFA) 108 (90 Base) MCG/ACT inhaler Inhale 2 puffs intothe lungs every 4 hours as needed for shortness of breath / dyspnea or wheezing 07/13/20 Yes Denise Woodson Ra, APRN CNP aspirin (ASA) 325 MG EC tablet Take 1 tablet (325 mg) by mouth daily Patient taking differently: Take 162 mg by mouth daily. 02/14/24 Yes Denise Woodson Ra, APRN CNP BREO ELLIPTA 200-25 MCG/INH Inhaler INHALE 1 PUFF INTO THE LUNGS DAILY 02/22/22 Yes Denise Woodson Ra, APRN CNP cetirizine (ZYRTEC) 10 MG tablet Take 10 mg by mouth at bedtime. Yes Unknown, Entered By History levETIRAcetam (KEPPRA) 750 MG tablet TAKE 1 TABLET BY MOUTH TWICE A DAY Patient taking differently: Take 375 mg by mouth 2 times daily. Takes 1/2 of 750 mg tab bid 04/01/24Yes Denise Woodson Ra, APRN CNP Lidocaine (LIDOCARE) 4 % Patch Place 1 patch onto the skin every 24 hours To prevent lidocaine toxicity, patient should be patch free for 12 hrs daily. Patient taking differently: Place 1 patch onto the skin daily as needed. To prevent lidocaine toxicity, patient should be patch free for 12 hrs daily. 01/22/24 Yes Delisa Manuel MD LORazepam (ATIVAN) 1 MG tablet Take 1/2-1 tablet daily as needed for onset of dizziness. 03/17/24 YesDenise Woodson Ra, APRN CNP MAGNESIUM PO Take 1 tablet by mouth at bedtime. Yes Unknown, Entered By History meclizine (ANTIVERT) 25 MG tablet Take 1 tablet (25 mg) by mouth 3 times daily as needed for dizziness 02/13/24 Yes Dangelo Sylvester, methyl salicylate-menthol (ICY HOT) ointment Apply topically every 6 hours as needed (pain) 01/22/24 Yes Delisa Manuel MD psyllium (METAMUCIL) 28.3 % packet Take 1 packet by mouth daily Yes Unknown, Entered By History rosuvastatin (CRESTOR) 20 MG tablet TAKE 1 TABLET (20 MG) BY MOUTH AT BEDTIME 03/06/24 Yes Denise Woodson Ra, APRN CNP senna-docusate (SENOKOT-S/PERICOLACE) 8.6-50 MG tablet Take 2 tablets by mouth 2 times daily as needed for constipation 01/22/24 Yes Delisa Manuel MD traZODone (DESYREL) 50 MG tablet Take 2 tablets (100 mg) by mouth At Bedtime 07/27/21 Yes Denise Woodson Ra, APRN CNP OXcarbazepine (TRILEPTAL) 150 MG tablet Take 1 tablet (150 mg) by mouth at bedtime 05/05/24 Rohit Barcenas MD Scheduled Meds Current Facility-Administered Medications Medication Dose Route Frequency Provider Last Rate Last Admin aspirin EC tablet 162 mg 162 mg Oral Daily Christen Peng MD 162 mg at 05/15/24 1013 cetirizine (zyrTEC) tablet 10 mg 10 mg Oral At Bedtime Christen Peng MD 10 mg at 05/15/24 0032 fluticasone-vilanterol (BREO ELLIPTA) 200-25 MCG/ACT inhaler 1 puff 1 puff Inhalation Daily Christen Peng MD 1 puff at 05/15/24 1016 levETIRAcetam (KEPPRA) half-tab 375 mg 375 mg Oral BID Christen Peng MD 375 mg at 05/15/24 1013 magnesium oxide (MAG-OX) half-tab 200 mg 200 mg Oral At Bedtime Christen Peng MD 200 mg at 05/15/24 0033 OXcarbazepine (TRILEPTAL) tablet 150 mg 150 mg Oral At Bedtime Stevo Islas MD pantoprazole (PROTONIX) EC tablet 40 mg 40 mg Oral QAM AC Christen Peng MD 40 mg at 05/15/24 1013 psyllium (METAMUCIL/KONSYL) Packet 1 packet 1 packet Oral Daily Christen Peng MD 1 packet at 05/15/24 1012 rosuvastatin (CRESTOR) tablet 20 mg 20 mg Oral At Bedtime Christen Peng MD 20 mg at 05/15/24 0033 traZODone (DESYREL) tablet 100 mg 100 mg Oral At Bedtime Christen Peng MD 100 mg at 05/15/24 0032 Infusion Meds Current Facility-Administered Medications Medication Dose Route Frequency Provider Last Rate Last Admin sodium chloride 0.9 % infusion Intravenous Continuous Christen Peng MD 100 mL/hr at 05/14/24 2250 New Bag at 05/14/24 2250 Allergies Allergies Allergen Reactions Codeine GI Disturbance Other Reaction(s): epigastric pain Mold Dizziness and GI Disturbance Morphine GI Disturbance Bupropion GI Disturbance and Other (See Comments) Diarrhea and stomach ache Erythromycin GI Disturbance PHYSICAL EXAMINATION Temp: [97.9 ??F (36.6 ??C)-98.6 ??F (37 ??C)] 98.2 ??F (36.8 ??C) Pulse: [57-76] 76 Resp: [16-20] 16 BP: (114-151)/(62-85) 151/85 SpO2: [93 %-100 %] 98 % Neurologic Mental Status: alert, oriented x 3, follows commands, speech clear and fluent, naming and repetition normal Cranial Nerves: visual thomas intact, PERRL, EOMI with normal smooth pursuit, facial sensation decreased on L V1 and symmetric, facial movements symmetric, hearing not formally tested but intact to conversation, palate elevation symmetric and uvula midline, no dysarthria, shoulder shrug strong bilaterally, tongue protrusion midline Motor: normal muscle tone and bulk, no abnormal movements, able to move all limbs spontaneously, within the limitation of poor effort strength 5-/5 throughout upper and lower extremities, no pronatordrift Reflexes: toes down-going Sensory: light touch sensation intact and symmetric throughout upper and lower extremities, no extinction on double simultaneous stimulation Coordination: normal [id number]-[id number] and yihn-vk-oqqi bilaterally without dysmetria, rapid alternating movements symmetric Station/Gait: deferred Stroke Scales NIHSS 1a. Level of Consciousness 0 1b. LOC Questions 0 1c. LOC Commands 0 2. Best Gaze 0 3. Visual 0 4. Facial Palsy 0 5a. Motor Arm, Left 0 5b. Motor Arm, Right 0 6a. Motor Leg, Left 0 6b. Motor Leg, right 0 7. Limb Ataxia 0 8. Sensory 0 9. Best Language 0 10. Dysarthria 0 11. Extinction and Inattention 0 Total (0) Imaging I personally reviewed all imaging; relevant findings per HPI. Labs Data CBC Recent Labs Lab 05/15/24 0625 05/10/24 1434 WBC 5.4 8.5 RBC 4.37 4.80 HGB 13.6 14.7 HCT 40.8 43.9 PLT 172 185 Basic Metabolic Panel Recent Labs Lab 05/15/24 0625 05/10/24 1434 05/10/24 1433 NA 141 140 -- POTASSIUM 4.5 4.1 -- CHLORIDE 106 104 -- CO2 27 25 -- BUN 15.4 13.4 -- CR 0.90 0.78 -- GLC 89 85 78 TIFF 9.1 9.8 -- Liver Panel No results for input(s): PROTTOTAL, ALBUMIN, BILITOTAL, ALKPHOS, AST, ALT, BILIDIRECTin the last 168 hours. INR Recent Labs Lab Test 05/10/24 1434 02/13/24 1216 02/04/24 1349 INR 0.92 0.94 0.90 Cosigned by Hansa Griffith MD at 07/11/2024 6:53 AM CDT Associated attestation - Hansa Griffith MD - 07/11/2024 6:53 AM CDT Stroke-Neurocritical Care Attending Attestation Admission Summary 48 year old female with PMHx of atrial septal defect s/p repair, Euler Danlos syndrome, left sigmoid aVF and IR angiogram complicated by strokes, right ICA dissection and seizures presents to outside with chest pain and chest pressure. She was transferred to [facility] for cardiology workup.Stroke neurology were consulted today for left arm heaviness and face numbness that is localized to very small area and has happened at times before as well in similar pattern. MRI brain negative for acutestroke. Currently low suspicion of TIA Impression: Transient neurological symptoims Recommendations: No further stroke workup at this point Outpatient followup for seizure management Cardiac workup per primary team Hansa Griffith MD Department of Neurology To page me or covering stroke neurology sales team recruiter, click here: AMCOM Choose Broadcast Transmitter Operator tab at top, then select NEUROLOGY/ALL SITES from middle drop- down box, press Enter, then look for stroke or telestroke for your site. * Aspen Zurita MD - 05/15/2024 12:56 [...] by postprocedure CVAs who was admitted to [facility] on 05/14/2024 with chest discomfort. Cardiac troponins [...] acute findings. Yesterday she was admitted to [facility] with chest discomfort that involved her left [...] disc disease), cervical 02/07/2017 Depressive disorder 2001 Rob-Danlos syndrome Excessive or frequent menstruation 01/31/2006 Hospitalized [...] Past Surgical History: Procedure Laterality Date C PIPE ORGAN MECHANIC APPRENTICE PROCEDURE DATE: vag del. C PIPE ORGAN MECHANIC APPRENTICE PROCEDURE DATE: 2000 tubal ligation C PIPE ORGAN MECHANIC APPRENTICE PROCEDURE DATE: 1994 D&C CARDIAC SURGERY 06/2006 heart defect repair ESOPHAGOSCOPY, GASTROSCOPY, DUODENOSCOPY (EGD), COMBINED N/A 02/08/2021 Procedure: ESOPHAGOGASTRODUODENOSCOPY (EGD); Surgeon: Tuan Miller MD; Location: GI GI SURGERY 09/2020 gallbladder removed HC KNEE SCOPE,MED/LAT MENISECTOMY 08/04/13 LT HEART CATH, CLOSURE ATRIAL SEPTAL DEFECT 06/20/06 amplatzer septal occluder- serial #[id number] RW PIPE ORGAN MECHANIC APPRENTICE (ABSTRACTED) pneumonia several times SURGICAL PATHOLOGY EXAM [...] Intravenous q1 min prn 3 mL at Medications Prior to Admission Medication Sig Dispense [...] mg 0.2 mg Intravenous Q2H PRN Christen Pneg MD HYDROmorphone (DILAUDID) injection 0.4 mg 0.4 [...] 0.2 mg Intramuscular Q2 Min PRN Vlad Rehman MD Or [...] 250 mL 250 mL Intravenous Once PRN Vald Rehman MD traZODone (DESYREL) tablet 100 mg [...] Status --------- ------ CBC with platelets and d...[[id number]] Final result Please view results for these [...] Miscellaneous Notes * Plan of Care - Navya Black, PT - 05/19/2024 4:25 PM CDT Physical Therapy Discharge Summary Reason for therapy discharge: Discharged to home with outpatient therapy. Progress towards therapy goal(s). See goals on Care Plan in [facility] electronic health record for goal details. Goals met Therapy recommendation(s): Continued therapy is recommended. Rationale/Recommendations: Pt would benefit from outpatient PT toprogress strength, balance, and functional mobility. * Plan of Care - Jonathan Webb RN - 05/19/2024 2:44 PM CDT Pt is ready for discharge. IV taken out. Belongings checked and ensured. Will be accompanied by . AVS printed. 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 A&O. Neuros intermittent head pressure, blurry vision, bilateral tinnitus, L facial numbness. VSS. Regular diet, thin liquids. Takes pills whole. Up with SBA and walker. Denies pain. Patient with complaints of constipation, PRN Sennagiven, did have small BM. Pt scoring green on the Aggression Stop Light Tool. Plan to continue to monitor head pressure/neuro symptoms. Discharge pending, possibly to ARU. * Plan of Care - Paige Maldonado RN - 05/18/2024 6:24 PM CDT A&O x4. Neuros intact. Mild pressure headache, improved with scheduled tylenol. VSS on RA. Up w/ SBA and walker. Voiding in BR. Had small BM today after bowel regimen. Tolerating regular diet. Takes pills whole. Alarms on. Plan for discharge to ARU once bed available. 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 A&O. Neuros intermittent head pressure, blurry vision, bilateral tinnitus, L facial numbness. VSS. Regular diet, thin liquids. Takes pills whole. Up with SBA. Complaints of head pain/pressure x1, PRN Oxycodone given x1. Episode of con fusion noted about 2 hours after Oxycodone administration, patient stating she had been in the shower, riding in a truck, that her whole body was shaking and her eyes were fluttering. States this happens at home from time to time. Instructed her to press call light if another episode happens. Pt scoring green on the Aggression Stop Light Tool. Plan to continue to monitor head pressure/neuro symptoms. Discharge pending, possibly to ARU. * Plan of Care - Chiquis Herrera RN - 05/17/2024 6:38 PM CDT Reason for Admission: Dural AVF Cognitive/Mentation: A/Ox 4 Neuros/CMS: Intact ex blurry vision, intermittent tinnitus and left ear issues of feeling like fan turning on and off is how she describes, headache and pressure but much improved today. VS: stable. . /GI: Continent. Last BM 3days ago/ bowel regimen today and increased mcarthur walking and if no BM bytomorrow will take supp. Pulmonary: LS clear. Pain: denies at present. Drains/Lines: PIV Skin: intact Activity: Assist x1 SBA GBW. Diet: regular with thin liquids. Takes pills whole. 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 A&O. Neuros intermittent head pressure, blurry vision, bilateral tinnitus, L facial numbness. VSS. Regular diet, thin liquids. Takes pills whole. Up with SBA. Oxycodone x1, patient reported she had an episode of sweating and muscle tw itching after dose. Pt scoring green on the Aggression Stop Light Tool. Plan to continue to monitorhead pressure/neuro symptoms. Discharge pending. * Plan of Care - Chiquis Herrera [...] green * Plan of Care - Jovita Castro, GEMA - 05/16/2024 3:27 PM CDT Goal Outcome [...] * Pharmacy-Admission Medication History - Benjy Palacios RPH - 05/14/2024 10:34 PM CDT Pharmacist Admission [...] it due side effects. Changes made to TABLE OPERATOR medication list: Added: None Deleted: vit b complex Changed: none Allergies reviewed with patient and updates made in EHR: no Medication History Completed By: Benjy Palacios RPH 05/14/2024 10:34 PM TABLE OPERATOR Med List Medication Sig Last Dose acetaminophen [...] st Contact Info) Description 07/20/2024 12:00 PM CIGARETTE STAMPER Virtual Visit [facility] [address] [place] [phone] Denise Woodson Ra, PLOW HOLDER [employer] YOU[employer] SUPERVISOR [address] [place] [address] 07/30/2024 8:30 AM CIGARETTE STAMPER Virtual Visit [facility] Neurology [address] [place] [phone] Randy Maradiaga, [address] [id number] 08/04/2024 12:00 PM CIGARETTE STAMPER Virtual Visit [facility] Mental Health and Addiction [address] [place] [phone] Arthur Salas, [facility] [address] [place] [address] 08/04/2024 3:30 PM CIGARETTE STAMPER [facility] [address] [place] [phone] Denise Woodson Ra, PLOW HOLDER [employer] YOU[employer] SUPERVISOR [address] [place] [address] 08/07/2024 1:00 PM CIGARETTE STAMPER Appointment [facility] [address] [place] [phone] Danna Carednas PA-C [address] [place], [place] [phone] 08/10/2024 12:30 PM CIGARETTE STAMPER Virtual Visit [facility] Neuropsychology [address] [place] [phone] Robin Zepeda MD [address] [place] [address] 08/17/2024 12:30 PM CIGARETTE STAMPER Office Visit [facility] Neuropsychology [address] [phone] Robin Zepeda MD [address] [place] [address] Tulio Ogden, PhD [address] [address] 09/04/2024 11:00 AM CIGARETTE STAMPER Office Visit [facility] [address] [place] [phone] Denise Woodson Ra, PLOW HOLDER [employer] YOU[employer] SUPERVISOR [address] [place] [address] 09/18/2024 1:00 PM CIGARETTE STAMPER Office Visit [facility] [address] [place] [phone] Denise Woodson Ra, PLOW HOLDER [employer] YOU[employer] SUPERVISOR [address] [place] [address] 09/29/2024 9:00 AM CIGARETTE STAMPER Virtual Visit [facility] [address] [phone] Randy Maradiaga DO [address] [place] [address] 10/09/2024 1:20 PM CIGARETTE STAMPER Office Visit [facility] Heart [address] [phone] Danna Cardenas PA-C [address] [place] [address] 10/30/2024 4:00 PM CIGARETTE STAMPER Virtual Visit [facility] [place] [address] [place] [phone] Lisa Zambrano MD [address] [place] [address] 12/29/2024 12:45 PM CDT Office Visit [facility] [address] [place], [place] [address] [facility] [address] [phone] Fabi Coates MD [address] [place] [phone] 12/29/2024 1:45 PM CDT Office Visit [facility] [address] [place] [phone] Fabi Coates MD [address] [place] [phone] 06/01/2025 11:15 AM CDT Appointment [facility] [address] [facility] [address] [place] [phone] Robin Zepeda MD [address] [place] [phone] 06/04/2025 11:00 AM CDT Office Visit [facility] Neurosurgery [address] [place] [phone] Robin Zepeda MD [address] [place] [address] Usha Simon APRN [employer] YOU[employer] SUPERVISOR [address] [facility] [place] [address] Scheduled Referrals Name Type Priority Associated Diagnoses Orde r Schedule Follow-Up with Cardiology MONICA Referral Routine: Next available opening Chest pain, unspecified type Expected: 06/22/2024 (Approximate), Expires: 05/15/2025 Adult Neurology Shower Doors And Panels Fabricator Referral Referral Routine: Next available opening Dural [...] Mental Health weekly - PT, OT and SOFTWARE TOOLS ENGINEER, continuing through [facility] [place]: - Continue following up with PCP: 09/04/2024 - Vascular Dr. Zambrano 05/01/24 - follow up recommended in 6 months: 11/11/24 TBD #[phone]. - call independently - MTM 05/25/2024, completed - Neurosurgery Dr. Zepeda, following up with LABORATORY MANAGER: 06/04/2025 11:00 AM (Arrive by 10:45 AM) Usha Simon APRN [employer] YOU[employer] SUPERVISOR 2. I will take my medications as prescribed. 3. I will discuss, review, schedule and complete recommended overdue health maintenance with my Primary Care Provider. 4. I will contact my care team with questions, concerns, support needs. I will use the clinic as a resource and I understand I can contact my clinic with 24/7 after hours services available. Skein Inspector will remain available as needed. documented as of this encounter Procedures Procedure Name Priority Date/Time Associated Diagnosis Comments MR BRAIN W/O & W CONTRAST Routine 05/15/2024 4:01 PM CDT MRA NECK (CAROTIDS) W/O & W CONTRAST Routine 05/15/2024 4:01 PM CDT MRA BRAIN ([place]) W/O CONTRAST Routine 05/15/2024 4:01 [...] less likely. MIRELA TINEO MD SYSTEM ID: ??[id number] Narrative 05/15/2024 4:10 PM CDT MRI BRAIN [...] less likely. MIRELA TINEO MD SYSTEM ID: [id number] Stevo Islas MD IMG MRI ORDERABLES Final Result * MRA Brain ([place]) wo Contrast (05/15/2024 4:01 PM CDT) Anatomical Region Laterality Modality Head, SUBRAD MR NEURO, UMP MR NEURO, RAD MR Magnetic Resonance Impressions 05/15/2024 4:17 PM CDT IMPRESSION: ??No hemodynamically significant stenosis in the head or evidence of acute vascular injury. ?? MIRELA TINEO MD SYSTEM ID: ??[id number] Narrative 05/15/2024 4:17 PM CDT MR ANGIOGRAM OF THE HEAD WITHOUT CONTRAST ?? 05/15/2024 4:01 PM HISTORY: eb/flow of left sided heaviness, tingling, since yesterday TECHNIQUE: ??3D [id number] MR angiogram of the head without contrast. [...] sided heaviness, tingling, since yesterday TECHNIQUE: 3D [id number]-[id number] MR angiogram of the head without contrast. [...] vascular injury. MIRELA TINEO MD SYSTEM ID: [id number] Delicia Saini APRN [facility] IMG MRI ORDERABLES Fin al Result * MRA Neck (Carotids) wo & w Contrast (05/15/2024 4:01 PM CDT) Anatomical Region Laterality Modality Neck, SUBRAD MR NEURO, UMP MR NEURO, RAD MR Magnetic Resonance Impressions 05/15/2024 4:12 PM CDT IMPRESSION: ??Normal MR angiogram of the neck. MIRELA TINEO MD SYSTEM ID: ??[id number] Narrative 05/15/2024 4:12 PM CDT MRA NECK WITHOUT AND WITH CONTRAST ??05/15/2024 4:01 PM HISTORY: left sided tingling, eb and flow since yesterday history of prior CVA mri head done last at [place] TECHNIQUE: 2D [id number] MR angiogram of the neck without contrast [...] prior CVA mri head done last at [place] TECHNIQUE: 2D [id number] MR angiogram of the neck without contrast [...] the neck. MIRELA TINEO MD SYSTEM ID: [id number] us Delicia Saini PL[employer] IMG MRI ORDERABLES Fin al Result * [...] The left ventricular wall motion is normal. us Christen Peng MD [facility] ORDERABLES Final Resul t * CBC with platelets and differential (05/15/2024 6:25 AM CDT) WBC Count 5.4 4.0 - 11.0 10e3/uL 05/15/2024 7:01 AM CDT LABORATORY RBC Count 4.37 3.80 - 5.20 10e6/uL 05/15[facility]2024 7[facility] Hemoglobin 13.6 11.7 - 15.7 g/dL 05/15/2024 7:01 AM [facility] Hematocrit 40.8 35.0 - 47.0 % 05/15/2024 7:01 AM [facility] MCV 93 78 - 100 fL 05/15/2024 7:01 AM [facility] MCH 31.1 26.5 - 33.0 pg 05/15/2024 7:01 AM [facility] MCHC 33.3 31.5 - 36.5 g/dL 05/15/2024 7:01 AM [facility] RDW 11.7 10.0 - 15.0 % 05/15/2024 7:01 AM [facility] Platelet Count 172 150 - 450 10e3/uL 05/15/2024 7:01 AM [facility] % Neutrophils 49 % 05/15/2024 7:01 AM [facility] % Lymphocytes 35 % 05/15/2024 7:01 AM [facility] % Monocytes 6 % 05/15/2024 7:01 AM [facility] % Eosinophils 8 % 05/15/2024 7:01 AM [facility] % Basophils 1 % 05/15/2024 7:01 AM [facility] % Immature Granulocytes 0 % 05/15/2024 7:01 AM [facility] NRBCs per 100 WBC 0 <1 /100 024 7:01 AM [facility] Absolute Neutrophils 2.7 1.6 - 8.3 10e3/uL 05/15/2024 7:01 AM [facility] Absolute Lymphocytes 1.9 0.8 - 5.3 10e3/uL 05/15/2024 7:01 [facility] Absolute Monocytes 0.3 0.0 - 1.3 10e3/uL 05/15/2024 7:01 AM [facility] Absolute Eosinophils 0.4 0.0 - 0.7 10e3/uL 05/15/2024 7:01 AM [facility] Absolute Basophils 0.0 0.0 - 0.2 10e3/uL 05/15/2024 7:01 AM [facility] Absolute Immature Granulocytes 0.0 <=0.4 10e3/uL 05/15/2024 7:01 AM CDT LABORATORY Absolute NRBCs 0.0 10e3/uL 05/15/2024 7:01 AM CDT LABORATORY Blood STRUCTURE OF RIGHT HAND / Unknown Venipuncture / Unknown 05/15/2024 6:25 AM CDT 05/15/2024 6:57 AM CDT Christen Peng MD LAB - BLOOD ORDERABLES Final Result LABORATORY [facility] [address] 1[address] floor, [address] [place] [address], [facility] [phone] * Basic metabolic panel (05/15/2024 6:25 AM CDT) Sodium 141 135 - 145 mmol/L 05/15/2024 7:26 AM [facility] Potassium 4.5 3.4 - 5.3 mmol/L 05/15/2024 7:26 AM [facility] Chloride 106 98 - 107 mmol/L 05/15/2024 7:26 AM [facility] Carbon Dioxide (CO2) 27 22 - 29 mmol/L 05/15/2024 7:26 AM [facility] Anion Gap 8 7 - 15 mmol/L 05/15/2024 7:26 AM [facility] Urea Nitrogen 15.4 6.0 - 20.0 mg/dL 05/15/2024 7:26 AM [facility] Creatinine 0.90 0.51 - 0.95 mg/dL 05/15/2024 7:26 AM [facility] GFR Estimate 79 >60 mL/min/1.7 3m2 05/15/2024 7:26 AM [facility] Comment:eGFR calculated usin g 2020 CKD-EPI equation. Calcium 9.1 8.8 - 10.4 mg/dL 05/15/2024 7:26 AM [facility] Comment:Reference intervals for this test [...] LAB - BLOOD ORDERABLES Final Result LABORATORY [facility] [address] 1[address], [address] [place] [address], [facility] [phone] * Lipid panel reflex to direct LDL [...] ??Greater than or equal to 220 mg/dL us Christen Peng MD LAB - BLOOD ORDERABLES Final Result [facility] LABORATORY [facility] Topping Core Lab [address] [facility], [address] [place] [address], [facility] LABORATORY [facility] [address], [address] [place] [address], [facility] [phone] documented in this encounter Visit Diagnoses Diagnosis Gastroesophageal reflux disease with esophagitis without hemorrhage- Primary Gastroesophageal reflux disease with esophagitis without hemorrhage Chest pain, unspecified type Dural arteriovenous fistula Cerebral aneurysm, nonruptured History of seizure History of stroke Transient ischemic attack (TIA), and cerebral infarction without residual deficits Pain of right upper extremity Other constipation Cerebrovascular accident (CVA), unspecified mechanism (H) Fibromyalgia Mylagia and myositis, unspecified Chest pain, unspecified type History of stroke Transient ischemic attack (TIA), and cerebral 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 $Given 05/19/2024 9:01 AM CDT 975 mg $Given 05/18/2024 9:11 PM CDT 975 mg $Given 05/18/2024 5:07 PM CDT 975 mg aminophylline 50-100 mg 50-100 mg, Intravenous, [...] seizure disorder. $Given 05/15/2024 9:31 AM CDT 5 0 mg aspirin EC tablet 162 mg 162 mg, Oral, DAILY, First dose on Sat05/15/24 at 0900 $Given 05/19/2024 9:01 AM CDT 162 mg $Given 05/18/2024 10:24 AM CDT 162 mg $Given 05/17/2024 9:41 AM CDT 162 mg bisacodyl (DULCOLAX) suppository 10 mg 10 mg, Rectal, DAILY PRN, constipation, Starting on Sat05/18/24 at 1222, Hold for loose stools. cetirizine (zyrTEC) tablet 10 mg 10 mg, Oral, AT BEDTIME, First dose on Sat05/14/24 at 2330 $Given 05/18/2024 9:11 PM CDT 10 mg $Given 05/17/2024 9:01 PM CDT 10 mg $Given 05/16/2024 9:04 PM CDT 10 mg divalproex sodium delayed-release (DEPAKOTE) DR tablet 500 mg 500 mg, Oral, DAILY, First dose on Sat05/17/24 at 1600, DO NOT CRUSH., On hold since Sat05/18/2024 at 1254 until manually unheld $Given 05/18/2024 10:25 AM CDT 500 mg $Given 05/17/2024 4:18 PM CDT 500 mg fluticasone-vilanterol (BREO ELLIPTA) 200-25 MCG/ACT inhaler 1 puff 1 puff, Inhalation, DAILY, First dose on Sat05/15/24 at 0900, *Do not use more frequently than once daily.* Rinse mouth after use. Check the dose counter on the inhaler to ensure there are doses remaining before administering. $Given 05/19/2024 9:02 AM CDT 1 puff $Given 05/18/2024 10:25 AM CDT 1 puff $Given 05/17/2024 9:00 AM CDT 1 puff gadobutrol (GADAVIST) injection 10 mL 10 mL, Intravenous, ONCE, On Sat05/15/24 at 1600, For 1 dose, Supplied by, and administered by MRI. $Given 05/15/2024 3:36 PM CDT 10 mLs HYDROmorphone (PF) (DILAUDID) injection 0.5 mg 0.5 mg, Intravenous, EVERY 2 HOURS PRN, severe pain, Starting on 05/16/24 at 1336 levETIRAcetam (KEPPRA) half-tab 375 mg 375 mg, Oral, 2 TIMES DAILY, First dose on Marii 05/14/24 at 2330 $Given 05/19/2024 9:01 AM CDT 375 mg $Given 05/18/2024 9:11 PM CDT 375 mg $Given 05/18/2024 10:26 AM CDT 375 mg LORazepam (ATIVAN) tablet 0.5 mg 0.5 mg, Oral, EVERY 4 HOURS PRN, other, dizziness, Starting on 05/18/24 at 1255 magnesium oxide (MAG-OX) half-tab 200 mg 200 mg, Oral, AT BEDTIME, First dose on Marii 05/14/24 at 2330 $Given 05/18/2024 9:11 PM CDT 200 mg $Given 05/17/2024 9:00 PM CDT 200 mg $Given 05/16/2024 9:09 PM CDT 200 mg naloxone (NARCAN) injection 0.2 [...] 2 MIN PRN, opioid reversal, Starting on [facility] 05/14/24 at 2236, Administer intravenous route when [...] 2 MIN PRN, opioid reversal, Starting on [facility] 05/14/24 at 2236, Administer intramuscular if an [...] not improved after 4 naloxone doses. ondansetron (ZOFRAN) injection 4 mg 4 mg, Intravenous, EVERY 6 HOURS PRN, nausea, vomiting, Administer over 2-5 Minutes, Starting on Sat05/17/24 at 1545 $Given 05/17/2024 6:10 PM CDT 4 mg OXcarbazepine (TRILEPTAL) tablet 150 mg 150 mg, Oral, 2 TIMES DAILY, First dose (after last modification) on Sat05/19/24 at 1200 $Given 05/19/2024 1:18 PM CDT 150 mg oxyCODONE (ROXICODONE) tablet 5 mg 5 mg, Oral, EVERY 4 HOURS PRN, severe pain, IF pain not managed with non-pharmacological and non-opioid interventions, Starting on [place] 05/14/24 at 2156, May use concomitant with non-opioid analgesics. $Given 05/16/2024 7:43 PM CDT 5 mg $Given 05/16/2024 12:00 PM CDT 5 mg oxyCODONE IR (ROXICODONE) half-tab 2.5 mg 2.5 mg, Oral, EVERY 4 HOURS PRN, moderate pain, IF pain not managed with non-pharmacological and non-opioid interventions, Starting on [place] 05/14/24 at 2156, May use concomitant with non-opioid analgesics. $Given 05/18/2024 1:10 AM CDT 2.5 mg pantoprazole (PROTONIX) EC tablet 40 mg 40 mg, Oral, EVERY MORNING BEFORE BREAKFAST, First dose on Sat05/15/24 at 0730, DO NOT CRUSH. $Given 05/19/2024 6:22 AM CDT 40 mg $Given 05/18/2024 6:37 AM CDT 40 mg $Given 05/17/2024 5:17 AM CDT 40 mg polyethylene glycol (MIRALAX) Packet 17 g 17 g, Oral, DAILY, First dose on Sat05/18/24 at 1230, 1 Packet = 17 grams. Mix each gram with at least 1/2 ounce (15 mL) of water - 8 ounces for 17 g dose, 4 ounces for 8.5 g dose, 2 ounces for 4 g dose. Follow with the same volume of water. Hold for loose stools unless being administered as part of a bowel prep regimen or bowel clean out. $Given 05/19/2024 9:02 AM CDT 17 g $Given 05/18/2024 1:43 PM CDT 17 g prochlorperazine (COMPAZINE) injection 5 mg 5 mg, Intravenous, EVERY 6 HOURS PRN, nausea, vomiting, Administer over 1-2 Minutes, Starting on 05/17/24 at 1545 prochlorperazine (COMPAZINE) suppository 25 mg 25 mg, Rectal, EVERY 12 HOURS PRN, nausea, vomiting, Starting on 05/17/24 at 1545 prochlorperazine (COMPAZINE) tablet 5 mg 5 mg, Oral, EVERY 6 HOURS PRN, nausea, vomiting, Starting on 05/17/24 at 1545 psyllium (METAMUCIL/KONSYL) Packet 1 packet 1 packet, Oral, DAILY, First dose on Sat05/15/24 at 0900, Powder should be diluted with fluid before given. $Given 05/19/2024 9:02 AM CDT 1 packet $Given 05/18/2024 10:25 AM CDT 1 packet $Given 05/17/2024 9:41 AM CDT 1 packet regadenoson (LEXISCAN) injection 0.4 mg 0.4 mg, Intravenous, ONCE, On Sat05/15/24 at 0930, For 1 dose, Give by rapid IV injection (approximately over 10-15 seconds). Follow with a saline flush immediately after regadenoson administration, then follow with radioactive tracer (radiopharmaceutical agent). $Given 05/15/2024 9:20 AM CDT 0.4 mg rosuvastatin (CRESTOR) tablet 20 mg 20 mg, Oral, AT BEDTIME, First dose on Marii 05/14/24 at 2330 $Given 05/18/2024 9:11 PM CDT 20 mg $Given 05/17/2024 9:00 PM CDT 20 mg $Given 05/16/2024 9:04 PM CDT 20 mg senna-docusate (SENOKOT-S/PERICOLACE) 8.6-50 MG per tablet 1 tablet 1 tablet, Oral, 2 TIMES DAILY PRN, constipation, Starting on 05/16/24 at 1950, Hold for loose stools. $Given 05/18/2024 12:09 PM CDT 1 tablet $Given 05/17/2024 9:01 PM CDT 1 tablet $Given 05/16/2024 9:04 PM CDT 1 tablet senna-docusate (SENOKOT-S/PERICOLACE) 8.6-50 MG per tablet 1 tablet 1 tablet, Oral, 2 TIMES DAILY PRN, constipation, constipation, Starting on 05/18/24 at 1222, Hold for loose stools. $Given 05/18/2024 9:11 P M CDT 1 tablet sodium chloride (PF) 0.9% PF flush 1-10 mL 1-10 mL, Intravenous, EVERY 10 MIN PRN, other, for peripheral IV flush post IV meds, Starting on Sat05/14/24 at 2313, Cardiac Pre-procedure $Given 05/15/2024 9:32 AM CDT 5 mLs $Given 05/15/2024 9:20 AM CDT 5 mLs $Given 05/15/2024 9:05 AM CDT 10 mLs sodium chloride (PF) 0.9% PF flush 100 mL 100 mL, Intravenous, ONCE, On Sat05/15/24 at 1600, For 1 dose $Given 05/15/2024 3:36 PM CDT 100 mLs sodium chloride 0.9 % infusion at 100 mL/hr, Intravenous, CONTINUOUS, Starting on Sat05/14/24 at 2200, Until Sat05/19/24 at 0844 $New Bag 05/14/2024 10:50 PM CDT 100 mL/hr sodium chloride 0.9 % infusion at 30 mL/hr, Intravenous, CONTINUOUS, TKO (exclude from discharge list) May bolus as directed by procedural provider Record total infusion on and the I & 0 Doc Flow [...] $Given 05/15/2024 7:10 AM CDT 11.5 millicuries traZODone (DESYREL) tablet 100 mg 100 mg, Oral, AT BEDTIME, First dose on Mari[place] 05/14/24 at 2330 $Given 05/18/2024 9:11 PM CDT 100 mg $Given 05/17/2024 9:01 PM CDT 100 mg $Given 05/16/2024 9:04 PM CDT 100 mg documented in this encounter Active and Recently Administered Medications Times are shown in CDT. Scheduled Medication Order 05/17/2024 05/18/2024 05/19/2024 acetaminophen (TYLENOL) tablet 975 mg 975 mg, Oral, 3 TIMES DAILY, First dose on 05/16/24 at 1600, Maximum acetaminophen dose from all sources = 75 mg/kg/day not to exceed 4 grams/day. 0940 ($Given - Provider: Chiquis Herrear RN)1618 ($Given - Provider: Chiquis Herrera RN)2101 ($Given - Provider: Nisa Cole RN) 1024 ($Given - Provider: Paige Maldonado RN)1707 ($Given - Provider: Paige Maldonado RN)2111 ($Given - Provider: Nisa Cole RN) 0901 ($Given - Provider: Jonathan Webb RN)1600 (Canceled Entry - Provider: Orders Generic Provider - Comment: Automatically canceled at discontinue of medication order) aspirin EC tablet 162 mg 162 mg, Oral, DAILY, First dose on Sat05/15/24 at 0900 0941 ($Given - Provider: Chiquis Herrera RN) 1024 ($Given - Provider: Paige Maldonado RN) 0901 ($Given - Provider: Jonathan Webb RN) cetirizine (zyrTEC) tablet 10 mg 10 mg, Oral, AT BEDTIME, First dose on [place] 05/14/24 at 2330 2101 ($Given - Provider: Nisa Cole RN) 211 ($Given - Provider: Nisa Cole RN) divalproex sodium delayed-release (DEPAKOTE) DR tablet 500 mg 500 mg, Oral, DAILY, First dose on Sat05/17/24 at 1600, DO NOT CRUSH., On hold since Sat05/18/2024 at 1254 until manually unheld 1618 ($Given - Provider: Chiquis Herrera RN) 1025 ($Given - Provider: Paige Maldonado RN)1254 (Held by provider - Provider: Shruthi Tyson MD - Reason: Other) 0900 (Automatically Held - Provider: Shruthi Tyson MD)1825 (Unheld by provider - Provider: Orders Generic Provider) fluticasone-vilanterol (BREO ELLIPTA) 200-25 MCG/ACT inhaler 1 puff 1 puff, Inhalation, DAILY, First dose on Sat05/15/24 at 0900, *Do not use more frequently than once daily.* Rinse mouth after use. Check the dose counter on the inhaler to ensure there are doses remaining before administering. 0900 ($Given - Provider: Chiquis Herrera RN) 1025 ($Given - Provider: Paige Maldonado RN) 0902 ($Given - Provider: Jonathan Webb RN) levETIRAcetam (KEPPRA) half-tab 375 mg 375 mg, Oral, 2 TIMES DAILY, First dose on Sat05/14/24 at 2330 1008 ($Given - Provider: Chiquis Herrera RN)2100 ($Given - Provider: Nisa Cole RN) 1026 ($Given - Provider: Paige Maldonado RN)2111 ($Given - Provider: Nisa Cole RN) 0901 ($Given - Provider: Jonathan Webb RN) magnesium oxide (MAG-OX) half-tab 200 mg 200 mg, Oral, AT BEDTIME, First dose on Sat05/14/24 at 2330 2100 ($Given - Provider: Nisa Cole RN) 2111 ($Given - Provider: Nisa Cole RN) OXcarbazepine (TRILEPTAL) tablet 150 mg 150 mg, Oral, 2 TIMES DAILY, First dose (after last modification) on Sat05/19/24 at 1200 1318 ($Given - Provider: Jonathan Webb RN) pantoprazole (PROTONIX) EC tablet 40 mg 40 mg, Oral, EVERY MORNING BEFORE BREAKFAST, First dose on Sat05/15/24 at 0730, DO NOT CRUSH. 0517 ($Given - Provider: Nisa Cole RN - Comment: Given early per patient request, wants to sleep uninterupted)0730 (Canceled Entry - Provider: Nisa Cole RN) 0637 ($Given - Provider: Nisa Cole RN) 0622 ($Given - Provider: Nisa Cole, GEMA)0730 (Canceled Entry - Provider: Nisa Cole RN) polyethylene glycol (MIRALAX) Packet 17 g 17 g, Oral, DAILY, First dose on Sat05/18/24 at 1230, 1 Packet = 17 grams. Mix each gram with at least 1/2 ounce (15 mL) of water - 8 ounces for 17 g dose, 4 ounces for 8.5 g dose, 2 ounces for 4 g dose. Follow with the same volume of water. Hold for loose stools unless being administered as part of a bowel prep regimen or bowel clean out. 1343 ($Given - Provider: Paige Maldonado RN) 0902 ($Given - Provider: Jonathan Webb RN) psyllium (METAMUCIL/KONSYL) Packet 1 packet 1 packet, Oral, DAILY, First dose on Sat05/15/24 at 0900, Powder should be diluted with fluid before given. 0941 ($Given - Provider: Chiquis Herrera RN) 1025 ($Given - Provider: Paige Maldonado RN) 0902 ($Given - Provider: Jonathan Webb RN) rosuvastatin (CRESTOR) tablet 20 mg 20 mg, Oral, AT BEDTIME, First dose on Sat05/14/24 at 2330 2100 ($Given - Provider: Nisa Cole RN) 2110 ($Given - Provider: Nisa Cole RN) traZODone (DESYREL) tablet 100 mg 100 mg, Oral, AT BEDTIME, First dose on Sat05/14/24 at 2330 2101 ($Given - Provider: Nisa Cole RN) 2111 ($Given - Provider: Nisa Cole RN) PRN Medication Order 05/17/2024 05/18/2024 05/19/2024 albuterol (PROVENTIL HFA/VENTOLIN HFA) inhaler 2 puff, [...] on Marii 05/14/24 at 2154, Shake well. bisacodyl (DULCOLAX) suppository 10 mg 10 mg, Rectal, DAILY PRN, constipation, Starting on 05/18/24 at 1222, Hold for loose stools. HYDROmorphone (DILAUDID) injection 0.2 mg 0.2 mg, [...] severe pain, Starting on 05/16/24 at 1336 IF patient diabetic - [...] HOLD, Starting on Sat05/14/24 at 2313, Until Sat05/19/24 at 1825, ALL ORAL HYPOGLYCEMICS and include glipizide, glyburide, glimepiride, gliclazide, metformin (GLUCOPHAGE, GLUMETZA, FORTAMET, RIOMET) and metformin containing medications: alogliptin/metformin (KAZANO), glipizide/metformin (METAGLIP), glyburide/metformin (GLUCOVANCE), rosiglitazone/metformin (AVANDAMET), dapagliflozin/metformin (XIGDUO XR), sitagliptin/metformin (JANUMET, JANUMET XR), linagliptin/metformin (JENTADUETO), repaglinide/metformin (PRANDIMET), saxagliptin/metformin (KOMBIGLYZE XR), canagliflozin/metformin (INVOKAMET), and pioglitazone/metformin (ACTOPLUS MET, ACTOPLUS MET XR)., Cardiac Pre-procedure LORazepam (ATIVAN) tablet 0.5 mg 0.5 mg, Oral, EVERY 4 HOURS PRN, other, dizziness, Starting on 05/18/24 at 1255 meclizine (ANTIVERT) tablet 25 mg 25 mg, Oral, 3 TIMES DAILY PRN, dizziness, Starting on Sat05/14/24 at 2312 naloxone (NARCAN) injection 0.2 mg(Linked Group 1) 0.2 mg, Intravenous, EVERY 2 MIN PRN, opioid reversal, Starting on Sat05/14/24 at 2236, Administer intravenous route when available [...] doses. naloxone (NARCAN) injection 0.2 mg(Linked Group 1) 0.2 mg, Intramuscular, EVERY 2 MIN PRN, opioid reversal, Starting on Sat05/14/24 at 2236, Administer intramuscular if an intravenous [...] doses. naloxone (NARCAN) injection 0.4 mg(Linked Group 1) 0.4 mg, Intravenous, EVERY 2 MIN PRN, [...] doses. naloxone (NARCAN) injection 0.4 mg(Linked Group 1) 0.4 mg, Intramuscular, EVERY 2 MIN PRN, [...] patient has taken one of those medications. ondansetron (ZOFRAN) injection 4 mg 4 mg, Intravenous, EVERY 6 HOURS PRN, nausea, vomiting, Administer over 2-5 Minutes, Starting on [place] 05/17/24 at 1545 1810 ($Given - Provider: Chiquis Herrera RN) oxyCODONE (ROXICODONE) tablet 5 mg 5 mg, Oral, EVERY 4 HOURS PRN, severe pain, IF pain not managed with non-pharmacological and non-opioid interventions, Starting on Marii 05/14/24 at 2156, May use concomitant with non-opioid analgesics. oxyCODONE IR (ROXICODONE) half-tab 2.5 mg 2.5 mg, Oral, EVERY 4 HOURS PRN, moderate pain, IF pain not managed with non-pharmacological and non-opioid interventions, Starting on Marii 05/14/24 at 2156, May use concomitant with non-opioid analgesics. 0110 ($Given - Provider: Elizabeth Romano RN) prochlorperazine (COMPAZINE) injection 5 mg(Linked Group 2) 5 mg, Intravenous, EVERY 6 HOURS PRN, nausea, vomiting, Administer over 1-2 Minutes, Starting on 05/17/24 at 1545 prochlorperazine (COMPAZINE) suppository 25 mg(Linked Group 2) 25 mg, Rectal, EVERY 12 HOURS PRN, nausea, vomiting, Starting on 05/17/24 at 1545 prochlorperazine (COMPAZINE) tablet 5 mg(Linked Group 2) 5 mg, Oral, EVERY 6 HOURS PRN, nausea, vomiting, Starting on 05/17/24 at 1545 senna-docusate (SENOKOT-S/PERICOLACE) 8.6-50 MG per tablet 1 tablet 1 tablet, Oral, 2 TIMES DAILY PRN, constipation, Starting on 05/16/24 at 1950, Hold for loose stools. 2100 ($Given - Provider: Nisa Cole RN) 120 ($Given - Provider: Paige Maldonado RN) senna-docusate (SENOKOT-S/PERICOLACE) 8.6-50 MG per tablet 1 tablet 1 tablet, Oral, 2 TIMES DAILY PRN, constipation, constipation, Starting on 05/18/24 at 1222, Hold for loose stools. 2110 ($Given - Provider: Nisa Cole RN) sodium chloride (PF) 0.9% PF flush 1-10 mL 1-10 mL, Intravenous, EVERY 10 MIN PRN, other, for peripheral IV flush post IV meds, Starting on Marii 05/14/24 at 2313, Cardiac Pre-procedure Linked Groups Order Group 1: naloxone (NARCAN) injection 0.2 mgJump to med [...] not improved after 4 naloxone doses. Group 2: prochlorperazine (COMPAZINE) injection 5 mgJump to med 5 mg, Intravenous, EVERY 6 HOURS PRN, nausea, vomiting, Administer over 1-2 Minutes, Starting on 05/17/24 at 1545 Or prochlorperazine (COMPAZINE) tablet 5 mgJump to med 5 mg, Oral, EVERY 6 HOURS PRN, nausea, vomiting, Starting on 05/17/24 at 1545 Or prochlorperazine (COMPAZINE) suppository 25 mgJump to med 25 mg, Rectal, EVERY 12 HOURS PRN, nausea, vomiting, Starting on 05/17/24 at 1545 documented in this encounter Additional Health Concerns Active Problems Noted Date Diagnosed Date Increased risk of re-admission 02/18/2024 Assessment Noted Time PHQ-9 Depression Total Score: 5 03/17/20 24 9:45 AM CDT documented as of this encounter Care Teams Warehouse Order Picker Relationship Specialty Start Date End Date Winston Villatoro OD [facility] [place] [address] [place] [address] PCP - Ophthalmology Ophthalmology 02/11/13 Denise Woodson Ra, PLOW HOLDER [employer] [address] [place] [address] PCP - General Family Practice 09/21/20 Denise Woodson Ra, PL[employer] H[employer] [address] [place] [address] Assigned PCP 07/17/20 Usha Simon APRN [employer] [address] [id number] Nurse Practitioner Neurological Surgery 01/24/24 Dangelo Salinas MD [address] [place], [place] [id number] Neurology 01/27/24 Anastasia Stearns, RN Lead Skein Inspector 02/06/24 Germaine Lopez, W Community Health Worker Primary Care - CC 02/18/24 Lisa Zambrano MD [address] [place] [id number] Assigned Heart and Vascular Provider 05/08/24 07/07/24 Raul Hoyos MD [address] [id number] Assigned Neuroscience Provider 05/08/24 07/07/24 documented as of this encounter
--- OUTSIDE RECORDS SUMMARY | 2024-07-16 13:54 | XMS_ITS | Encounter Summary ---
Author Organization [facility] Address [address] [place] [address] Care Team Providers Care Bindery Assistant Name Role Phone Shauna Winston Se OD Unavailable Denise Woodson Ra, APRN PAYROLL AUDITOR Unavailable [phone] Denise Woodson Ra, APRN PAYROLL AUDITOR Primary Care Provid er Usha Simon APRN PAYROLL AUDITOR Unavailable [phone] Dangelo Salinas MD Unavailable Anastasia Stearns RN Unavailable [phone] Germaine Lopez CHW Unavailable [phone] Lisa Zambrano MD Unavailable [phone] Raul Hoyos MD Unavailable [phone] Joya Lira [facility] Unavailable Joya Lira [facility] Unavailable Fabi Coates MD Unavailable [phone] Encounter Details Date Type Department Care Team (Late st Contact Info) Description 05/13/2024 Telephone Se [facility] [address], [address] [place] [address] Rohit Barcenas MD [address] [place] [address] [address] [place] [address] Social History Tobacco Use Types [...] Never 02/28/2024 How often do you attend presybeterian or orthodoxy serv ices? 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 Not on file Not [...] office visit: 05/05/24 Message routed to: ADRIA Leroy documented in this encounter Plan of Treatment Upcoming Encounters Date Type Department Care Team (Late st Contact Info) Description 07/20/2024 12:00 PM BOOKBINDER CHIEF Virtual Visit [facility] [address] [place] [phone] Denise Woodson Ra, CONCRETE TILE MACHINE OPERATOR PAYROLL AUDITOR [address] [place] [address] 07/30/2024 8:30 AM BOOKBINDER CHIEF Virtual Visit [facility] Neurology [address] [place] [phone] Randy Maradiaga, [address] [address] 08/04/2024 12:00 PM BOOKBINDER CHIEF Virtual Visit [facility] Mental Health and Addiction [address] [place] [address] Arthur Salas, [address] [address] 08/04/2024 3:30 PM BOOKBINDER CHIEF Virtual Visit [facility] [address] [place] [phone] Denies Woodson Ra, CONCRETE TILE MACHINE OPERATOR PAYROLL AUDITOR [address] [place] [address] 08/07/2024 1:00 PM BOOKBINDER CHIEF Appointment [facility] Heart Care [address] [facility] [address] [place] [phone] Danna Cardenas PA-C 6405 [place] [address] 08/10/2024 12:30 PM BOOKBINDER CHIEF Virtual Visit [facility] Neuropsychology [address] [phone] Robin Zepeda MD [address] [place] [address] 08/17/2024 12:30 PM BOOKBINDER CHIEF Office Visit [facility] Neuropsychology [address] [phone] Robin Zepeda MD [address] [place] [address]38[address] Tulio Ogden, PhD [address] [id number] 09/04/2024 11:00 AM BOOKBINDER CHIEF Office Visit [facility] [address] [place] [phone] Denise Woodson Ra, CONCRETE TILE MACHINE OPERATOR PAYROLL AUDITOR [address] [place] [address] 09/18/2024 1:00 PM BOOKBINDER CHIEF Office Visit [facility] [address] [place] [phone] Denise Woodson Ra, CONCRETE TILE MACHINE OPERATOR PAYROLL AUDITOR [address] [place], [place] [id number] 09/29/2024 9:00 AM BOOKBINDER CHIEF Virtual Visit [facility] Neurology Clinic [address] 3rd [place] [phone] Randy Maradiaga, [address] [address] 10/09/2024 1:20 PM BOOKBINDER CHIEF Office Visit [facility] Heart [facility] [address] [facility] [address] [place] [phone] Danna Cardenas PA-C [address] [place], [place] [address] 10/30/2024 4:00 PM BOOKBINDER CHIEF Virtual Visit [facility] Vascular Clinic [place] [address] [place] [phone] Lisa Zambrano MD [address] [place] [address] 12/29/2024 12:45 PM CDT Office Visit [facility] [address] [place] [address] Ave [address] [phone] Fabi Coates MD [address] [place] [address] 12/29/2024 1:45 PM CDT Office Visit [facility] [address] [place], [place] [address]e [facility] [address] [phone] Fabi Coates MD [address] [place] [address] 06/01/2025 11:15 AM CDT Appointment [facility] Imaging [address] [facility] [address] [place] [address] Robin Zepeda MD [address] [place] [address] 06/04/2025 11:00 AM CDT Office Visit [facility] Neurosurgery Clinic [address] 3rd [place] [phone] Robin Zepeda MD [address] [place] [address] Usha Simon APRN PAYROLL AUDITOR [address] [place] [address] [id number] documented as of this encounter Goals Goal Patient Goal Type Associated Problems Recent Progress Patient-Stated? Author I would like additional resources and support to manage my health and prevent future avoidable ED visits/hospital admissions Care Plan Increased risk of re-admission 30%( 2:50 PM CDT) No Anastasia Stearns, RN Note: Barriers: diagnosis of multiple, chronic, complex medical conditions, provider availability - wait time to complete appointments, etc. Strengths: motivated, engaged in care coordination Patient expressed understanding of goal: yes Action steps to achieve this goal: 1. I will follow up with my providers as scheduled/recommended - Mental Health weekly - PT, OT and ASSET PROTECTION AGENT, continuing through [facility]: - Continue following up with PCP: 09/04/2024 - Vascular Dr. Zambrano 05/01/24 - follow up recommended in 6 months: 11/11/24 TBD #[phone]. - call independently - MTM 05/25/2024, completed - Neurosurgery Dr. Zepeda, following up with PUDDLER PILE DRIVING: 06/04/2025 11:00 AM (Arrive by 10:45 AM) Usha Simon APRN PAYROLL AUDITOR 2. I will take my medications as prescribed. 3. I will discuss, review, schedule and complete recommended overdue health maintenance with my Primary Care Provider. 4. I will contact my care team with questions, concerns, support needs. I will use the clinic as a resource and I understand I can contact my clinic with 24/ after hours services available. Surgical Assistant will remain available as needed. documented as of this encounter Visit Diagnoses Not on filedocumented in this encounter Additional Health Concerns Active Problems Noted Date Diagnosed Date Increased risk of re-admission 02/18/2024 Assessment Noted Time PHQ-9 Depression Total Score: 5 03/17/20 24 9:45 AM CDT documented as of this encounter Care Teams Bindery Assistant Relationship Specialty Start Date End Date ShaunaWinston OD [facility] [address] [facility] [address] [place] [address] PCP - Ophthalmology Ophthalmology 02/11/13 Denise Woodson Ra, APRN PAYROLL AUDITOR [address] [place] [address] PCP - General Family Practice 09/21/20 Denise Woodson Ra, APRN PAYROLL AUDITOR [address] [place] [address] Assigned PCP 07/17/20 Usha Simon APRN PAYROLL AUDITOR [address] [facility], [place] [address] Nurse Practitioner Neurological Surgery 01/24/24 Dangelo Salinas MD [address] [place] [address] Neurology 01/27/24 Anastasia Stearns, RN Lead Surgical Assistant 02/06/24 Germaine Lopez, CHW Community Health Worker Primary Care - CC 02/18/24 Lisa Zambrano MD [address] [facility] [address] [place] [address] Assigned Heart and Vascular Provider 05/08/24 07/07/24 Raul Hoyos MD 9[address] [facility], [place] [address] Assigned Neuroscience Provider 05/08/24 07/07/24 Joya Lira RPH [address] [address] Pharmacist Pharmacist 05/25/24 Joya Lira RPH [address] [place] [address] Assigned MTM Pharmacist 06/08/24 Fabi Coates MD [address] [facility] 75 [place] [address] Genetics, Clinical 06/18/24 documented as of this encounter
--- OUTSIDE RECORDS SUMMARY | 2024-07-16 13:54 | XMS_ITS | Encounter Summary ---
Author Organization [facility] Address [address] [place] [address] Care Team Providers Care Pallet Stone Inserter Name Role Phone Winston Villatoro Se OD Unavailable [phone] Denise Woodson Ra, APRN MARINE EQUIPMENT ENGINEER Unavailable + [phone] Denise Woodson Ra, APRN MARINE EQUIPMENT ENGINEER Primary Care Provid er Usha Simon APRN MARINE EQUIPMENT ENGINEER Unavailable [phone] Dangelo Salinas MD Unavailable Anastasia Stearns RN Unavailable [phone] Germaine Lopez CHW Unavailable [phone] Lisa Zambrano MD Unavailable + [phone] Raul Hoyos MD Unavailable [phone] Encounter Details Date Type Department Care Team (Latest Contact Info) Description 05/23/2024 Travel Social History Tobacco Use Types Packs/Day [...] How often do you attend episcopal or baptism serv ices? 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 [address] [place] [phone] Denise Woodson Ra, CLIENT DELIVERY SPECIALIST MARINE EQUIPMENT ENGINEER [address] [place] [address] 07/30/2024 8:30 AM SALES FLOOR ASSOCIATE Virtual Visit [facility] Neurology [address] 3rd [place] [address] Randy Maradiaga, [address] 3[address] 08/04/2024 12:00 PM SALES FLOOR ASSOCIATE Virtual Visit [facility] Mental Health and Addiction [address] [place] [phone] Neisha Salasiose, DIRECTOR OF SEARCH ENGINE OPTIMIZATION [address] [place] [address] 08/04/2024 3:30 PM SALES FLOOR ASSOCIATE Virtual Visit [facility] [address] [place] [address] Denise Woodson Ra, CLIENT DELIVERY SPECIALIST [facility] [address] [place], [place] [address] 08/07/2024 1:00 PM SALES FLOOR ASSOCIATE Appointment [facility] Heart Care [address] [facility] [address] [place] [address] Danna Cardenas PA-C 6405 [place] [address] 08/10/2024 12:30 PM SALES FLOOR ASSOCIATE Virtual Visit [facility] Neuropsychology [address] [phone] Robin Zepeda MD [address] [place] [address]29[address] 08/17/2024 12:30 PM SALES FLOOR ASSOCIATE Office Visit [facility] Neuropsychology [address] [phone] Robin Zepeda MD [address] [place] [address] Tulio Ogden, PhD [address] [address] 09/04/2024 11:00 AM SALES FLOOR ASSOCIATE Office Visit [facility] [address] [place] [address] Denise Woodson Ra, CLIENT DELIVERY SPECIALIST MARINE EQUIPMENT ENGINEER [address] [place] [address] 09/18/2024 1:00 PM SALES FLOOR ASSOCIATE Office Visit [facility] [address] [place] [phone] Denise Woodson Ra, CLIENT DELIVERY SPECIALIST MARINE EQUIPMENT ENGINEER [address] [place] [address] 09/29/2024 9:00 AM SALES FLOOR ASSOCIATE Virtual Visit [facility] Neurology [facility] 9[address] [facility] 3rd [place] [phone] Randy Maradiaga, [address] [place] [address]498[address] 10/09/2024 1:20 PM SALES FLOOR ASSOCIATE Office Visit [facility] Heart [facility] [address] [facility] [address] [place] [address] Danna Cardenas PA-C 6405 [place], [place] 45[address] 10/30/2024 4:00 PM SALES FLOOR ASSOCIATE Virtual Visit [facility] Vascular [place] [address] [place] [phone] Lisa Zambrano MD [address] [place] [address] 12/29/2024 12:45 PM CDT Office Visit [facility] [address] [facility] [address],[place] [address] Fabi Coates MD 420 [facility] [address] [place], [place] [address] 12/29/2024 1:45 PM CDT Office Visit [facility] [address] [facility] Explorer [facility] [address],[place] [address] Fabi Coates MD 420 [facility] 75 [place] [address] 06/01/2025 11:[address] [facility] Imaging [address] [place] [phone] Robin Zepeda MD [address] [place] [address] 6[address] 06/04/2025 11:00 AM CDT Office Visit [facility] Neurosurgery [address] 3rd [place] [phone] Robin Zepeda MD [address] [place] [address] Usha Simon APRN [address] [address] documented as of this encounter Goals Goal [...] Mental Health weekly - PT, OT and TANNING DRUM OPERATOR, continuing through [facility]: - Continue following up with PCP: 09/04/2024 - Vascular Dr. Zambrano 05/01/24 - follow up recommended in 6 months: 11/11/24 D #[phone]. - call independently - MTM 05/25/2024, completed - Neurosurgery Dr. Zepeda, following up with OFFICE ASSISTANT RECEPTIONIST: 06/04/2025 11:00 AM (Arrive by 10:45 AM) [...] clinic with 24/ after hours services available. Tappet Adjuster will remain available as needed. documented as of this encounter Visit Diagnoses Not on filedocumented in this encounter Additional Health Concerns Active Problems Noted Date Diagnosed Date Increased risk of re-admission 02/18/2024 Assessment Noted Time PHQ-9 Depression Total Score: 5 03/17/20 24 9:45 AM CDT documented as of this encounter Care Teams Pallet Stone Inserter Relationship Specialty Start Date End Date Winston Villatoro, AMELIE [facility] [address] [facility] [address] [place] [address] PCP - Ophthalmology Ophthalmology 02/11/13 Denise Woodson Ra, APRN MARINE EQUIPMENT ENGINEER [address] [place] [address] PCP - General Family Practice 09/21/20 Denise Woodson Ra, APRN CNP [address] [place] [address] Assigned PCP 07/17/20 Usha Simon APRN CNP [address] [facility], [place] [address] Nurse Practitioner Neurological Surgery 01/24/24 Dangelo Salinas MD [address] [place] [address] Neurology 01/27/24 Anastasia Stearns, RN Lead Tappet Adjuster 02/06/24 Germaine Lopez, [facility] Community Health Worker Primary Care - CC 02/18/24 Lisa Zambrano MD [address] [place] [address] Assigned Heart and Vascular Provider 05/08/24 07/07/24 Raul Hoyos MD [address] [facility] [address] Assigned Neuroscience Provider 05/08/24 07/07/24 documented as of this encounter
--- OUTSIDE RECORDS SUMMARY | 2024-07-16 13:55 | XMS_ITS | Encounter Summary ---
Author Organization [facility] Address [address] [place] [address] Care Team Providers Care Radio Interference Trouble Shooter Name Role Phone Winston Villatoro Se OD Unavailable [phone] Denise Woodson Ra, APRN MUFF WINDER Unavailable Denise Woodson Ra, APRN MUFF WINDER Primary Care Provid er Usha Simon APRN MUFF WINDER Unavailable Dangelo Salinas MD Unavailable Anastasia Stearns RN Unavailable Germaine Lopez CHW Unavailable [phone] Lisa Zambrano MD Unavailable [phone] Raul Hoyos MD Unavailable Reason for Visit * Reason Comments Headache Encounter Details Date Type Department Care Team (Late st Contact Info) Description 05/12/2024 5:25 PM CDT - 05/12/2024 6:59 PM CDT [facility] Emergency Dept [address] [place] [address] Chinedu Moon MD [facility] [address] [place] [address] Discharge Disposition: Left Without Being Seen Social [...] 2 05/05/2024 [facility] - Occupational Stress Questionnaire [...] by your partner or ex-partner? 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 methyl salicylate-menthol (ICY HOT) ointmentIndication s:Fibromyalgia,Tony n of right upper extremity Apply topically every 6 hours as needed (pain) 01/22/2024 psyllium (METAMUCIL) 28.3 % packet Take 1 packet by mouth daily senna-docusate (SENOKOT-S/PERICOL VIC) 8.6-50 MG tabletIndications: Other constipation Take 2 tablets by mouth 2 times daily as needed for constipation 01/22/2024 aspirin (ASA) 325 MG EC tabletIndications: Cerebrovascular accident (CVA), unspecified mechanism (H) Take 1 tablet (325 mg) by mouth daily 30 tablet 02/14/2024 05/19/20 24 BREO ELLIPTA 200-25 MCG/INH InhalerIndications :Moderate persistent asthma without complication INHALE 1 PUFF INTO THE LUNGS DAILY 3 each 1 02/22/2022 06/08/20 24 levETIRAcetam (KEPPRA) 750 MG tabletIndications: History of seizure TAKE 1 TABLET BY MOUTH TWICE A DAY 56 tablet 04/01/2024 05/19/20 24 Lidocaine (LIDOCARE) 4 % PatchIndications:F ibromyalgia,Pain of right upper extremity Place 1 patch onto the skin every 24 hours To prevent lidocaine toxicity, patient should be patch free for 12 hrs daily. 01/22/2024 05/19/20 24 LORazepam (ATIVAN) 1 MG tabletIndications: History of seizure Take 1/2-1 tablet daily as needed for onset of dizziness. 10 tablet 03/17/2024 06/08/20 24 magnesium oxide 200 MG TABS Ok to take magnesium supplement of your preference 01/24/2024 05/14/20 24 meclizine (ANTIVERT) 25 MG tablet Take [...] Bedtime 180 tablet 3 07/27/2021 07/13/20 24 vitamin B complex with vitamin C (VITAMIN B COMPLEX) tablet Take 1 tablet by mouth daily 05/14/20 24 documented as of this encounter ED Notes [...] fatigue. Triage Assessment (Adult) Row Name 05/12/24 3352 Triage Assessment Airway WDL WDL Respiratory WDL Respiratory WDL WDL Skin Circulation/Temperature WDL Skin Circulation/Temperature WDL WDL Cardiac WDL Cardiac WDL WDL Peripheral/Neurovascular WDL Peripheral Neurovascular WDL WDL Cognitive/Neuro/Behavioral WDL Cognitive/Neuro/Behavioral WDL WDL documented in this encounter Plan of Treatment Upcoming Encounters Date Type Department Care Team (Late st Contact Info) Description 07/20/2024 12:00 PM PREPARATION ROOM MANAGER Virtual Visit [facility] [address] [place] [phone] Denise Woodson Ra, LPN INSTRUCTOR MUFF WINDER [address] [place], [place] [phone] 07/30/2024 8:30 AM PREPARATION ROOM MANAGER Virtual Visit [facility] Neurology [address] [phone] Randy Maradiaga, [address] [id number] 08/04/2024 12:00 PM PREPARATION ROOM MANAGER Virtual Visit [facility] [address] [place] [address] Arthur Salas, [address] [address] 08/04/2024 3:30 PM PREPARATION ROOM MANAGER [facility] [address] [place] [phone] Denise Woodson Ra, LPN INSTRUCTOR MUFF WINDER [address] [place] [address] 08/07/2024 1:00 PM PREPARATION ROOM MANAGER Appointment [facility] Heart Care [address] [facility] [address] [place] [phone] Danna Cardenas PA-C [address] [place] [address] 08/10/2024 12:30 PM PREPARATION ROOM MANAGER Virtual Visit [facility] Neuropsychology [place] [address] [phone] Robin Zepeda MD [address] [place] [address] 08/17/2024 12:30 PM PREPARATION ROOM MANAGER Office Visit [facility] Neuropsychology [address] [phone] Robin Zepeda MD [address] [place] [address] Tulio Ogden, PhD [address] [address] 09/04/2024 11:00 AM PREPARATION ROOM MANAGER Office Visit [address] [phone] Denise Woodson Ra, LPN INSTRUCTOR MUFF WINDER [address] [place] [address] 09/18/2024 1:00 PM PREPARATION ROOM MANAGER Office Visit [address] [phone] Denise Woodson Ra, LPN INSTRUCTOR MUFF WINDER [address] [place] [address] 09/29/2024 9:00 AM PREPARATION ROOM MANAGER Virtual Visit [facility] Neurology Clinic [address] [phone] Randy Maradiaga DO [address] [place] [address] 10/09/2024 1:20 PM PREPARATION ROOM MANAGER Office Visit [facility] Heart [address] [phone] Danna Cardenas PA-C [address] [facility] [place] [address] 10/30/2024 4:00 PM PREPARATION ROOM MANAGER Virtual Visit [facility] Vascular Clinic [place] [address] [place] [phone] Lisa Zambrano MD [address] [place] [address] 12/29/2024 12:45 PM CDT Office Visit [facility] [address] [place] [address] [phone] Fabi Coates MD [address] [place] [address] 12/29/2024 1:45 PM CDT Office Visit [facility]ty [facility] [address] [place] [phone] Fabi Coates MD [address] [place] [address] 06/01/2025 11:15 AM CDT Appointment [facility] [address] [facility] [address] [place] [phone] Robin Zepeda MD [address] [place], [place] [address] [address] 06/04/2025 11:00 AM CDT Office Visit [facility] Neurosurgery [address] 3rd [place] [phone] Robin Zepeda MD [address] [place], [place] [address] [address] Usha Simon APRN CNP [address]09 [facility]121[place] [address] documented as of this encounter Goals Goal [...] Mental Health weekly - PT, OT and LIVESTOCK SLAUGHTERER, continuing through [facility] [place]: - Continue following up with PCP: 09/04/2024 - Vascular Dr. Zambrano 05/01/24 - follow up recommended in 6 months: 11/11/24 TBD #[phone]. - call independently - MTM 05/25/2024, completed - Neurosurgery Dr. Zepeda, following up with PRESS OPERATOR [employer]: 06/04/2025 11:00 AM (Arrive by 10:45 AM) Usha Simon APRN MUFF WINDER 2. I will take my medications as prescribed. 3. I will discuss, review, schedule and complete recommended overdue health maintenance with my Primary Care Provider. 4. I will contact my care team with questions, concerns, support needs. I will use the clinic as a resource and I understand I can contact my clinic with 24/7 after hours services available. As400 Programmer Analyst will remain available as needed. documented as of this encounter Visit Diagnoses Not on filedocumented in this encounter Additional Health Concerns Active Problems Noted Date Diagnosed Date Increased risk of re-admission 02/18/2024 Assessment Noted Time PHQ-9 Depression Total Score: 5 03/17/20 24 9:45 AM CDT documented as of this encounter Care Teams Radio Interference Trouble Shooter Relationship Specialty Start Date End Date Winston Villatoro OD [facility] [place] [address] [place] [address] PCP - Ophthalmology Ophthalmology 02/11/13 Denise Woodson Ra, APRN MUFF WINDER [address] [place] [address] PCP - General Family Practice 09/21/20 Denise Woodson Ra, APRN MUFF WINDER [address] [place] [address] Assigned PCP 07/17/20 Usha Simon APRN MUFF WINDER [address] 667[address] Nurse Practitioner Neurological Surgery 01/24/24 Dangelo Salinas MD [address] [place], [place] [phone] Neurology 01/27/24 Anastasia Stearns, RN Lead As400 Programmer Analyst 02/06/24 Germaine Lopez, W Community Health Worker Primary Care - CC 02/18/24 Lisa Zambrano MD [address] [place] [id number] Assigned Heart and Vascular Provider 05/08/24 07/07/24 Raul Hoyos MD [address] [place] [address] [id number] Assigned Neuroscience Provider 05/08/24 07/07/24 documented as of this encounter
--- OUTSIDE RECORDS SUMMARY | 2024-07-16 13:55 | XMS_ITS | Encounter Summary ---
Author Organization [facility] Address [address] [place] [address] Care Team Providers Care Pharmacy Laboratory Technician Name Role Phone Shauna Winston Se OD Unavailable [phone] Denise Woodson Ra, APRN TRADE MARKER Unavailable + [phone] Denise Woodson Ra, APRN TRADE MARKER Primary Care Provid er Usha Simon APRN TRADE MARKER Unavailable + [phone] Dangelo Salinas MD Unavailable Anastasia Stearns RN Unavailable Germaine Lopez CHW Unavailable Lisa Zambrano MD Unavailable + [phone] Raul Hoyos MD Unavailable Joya Lira [facility] Unavailable [phone] Joya Lira [facility] Unavailable [phone] Fabi Coates MD Unavailable [phone] Robin Zepeda MD Unavailable [phone] Danna Cardenas PA-C Unavailable [phone] Felicita Desai RN Unavailable Unavailab le Encounter Details Date Type Department Care Team (Late st Contact Info) Description 05/11/2024 [facility] [address] [place] [address] Chintan Denise , MODEL MAKER PLASTER TRADE MARKER [address] [place] [address] Social History Tobacco Use Types Packs/Day Years [...] How often do you attend lutheran or synagogue serv ices? 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 Qing Copeland Lead Supervisor Of Way [facility] documented in this encounter Plan of Treatment Upcoming Encounters Date Type Department Care Team (Late st Contact Info) Description 07/20/2024 12:00 PM AFFIRMATIVE ACTION SPECIALIST Virtual Visit [facility] [address] [place] [phone] Denise Woodson Ra, MODEL MAKER PLASTER [facility] [address] [place] [address] 07/30/2024 8:30 AM AFFIRMATIVE ACTION SPECIALIST Virtual Visit [facility] [address] [phone] Randy Maradiaga, [address] [address] 08/04/2024 12:00 PM AFFIRMATIVE ACTION SPECIALIST Virtual [facility] Addiction [address] [place] [address] [address] 08/04/2024 3:30 PM AFFIRMATIVE ACTION SPECIALIST Virtual Visit [facility] [address] [place] [phone] Denise Woodson Ra, MODEL MAKER PLASTER TRADE MARKER [address] [facility] [facility] [place] 15[address] 08/07/2024 1:00 PM AFFIRMATIVE ACTION SPECIALIST Appointment [facility] Heart Care [address] [facility] [address] [place] [phone] Danna Cardenas PA-C [address]405 [place] [address] 08/10/2024 12:30 PM AFFIRMATIVE ACTION SPECIALIST Virtual Visit [facility] Neuropsychology [address] [phone] Robin Zepeda MD [address] [place] [address] 08/17/2024 12:30 PM AFFIRMATIVE ACTION SPECIALIST Office Visit [facility] Neuropsychology [address] [phone] Robin Zepeda MD [address] [place] [address] Tulio Ogden, PhD [address] [address] 09/04/2024 11:00 AM AFFIRMATIVE ACTION SPECIALIST Office Visit [facility] [place] [address] [place] [phone] Denise Woodson Ra, MODEL MAKER PLASTER TRADE MARKER [address] [facility] [place], [place] [phone] 09/18/2024 1:00 PM AFFIRMATIVE ACTION SPECIALIST [facility] [address] [place] [phone] Denise Woodson Ra, MODEL MAKER PLASTER TRADE MARKER [address] [place] [address] 09/29/2024 9:00 AM AFFIRMATIVE ACTION SPECIALIST [facility] Neurology [address] 3rd [place] [phone] Randy Maradiaga, [address] 332445 10/09/2024 1:20 PM AFFIRMATIVE ACTION SPECIALIST [facility] [address] [facility] [address] [place] [phone] Danna Cardenas PA-C [address] [place], [place] [address]115 10/30/2024 4:00 PM AFFIRMATIVE ACTION SPECIALIST Virtual [facility] [place] [address] [place] [phone] Lisa Zambrano MD [address] [place], [place] 85[address] 12/29/2024 12:45 PM CDT Office Visit [facility] [address] [place] [address] Ave Explorer [address] [phone] Fabi Coates MD [address] [place] [address] 574875 12/29/2024 1:45 PM CDT Office Visit [facility] Pediatric Specialty Clinic [address] [place] [address] Ave Explorer [address] [phone] Fabi Coates MD [address] [place] [address] 75 [place] [address] 06/01/2025 11:15 AM CDT Appointment [facility] Center Imaging [address] [place] [address] Robin Zepeda MD [address] [place] [address] 06/04/2025 11:00 AM CDT Office Visit [facility] [address] 3rd [place] [phone] Robin Zepeda MD [address] [place] [address] Usha Simon APRN TRADE MARKER [address] [place] [address] [id number] documented as of this encounter Goals Goal [...] Mental Health weekly - PT, OT and BIOPHYSICS PROFESSOR, continuing through [facility] [place]: - Continue following up with PCP: 09/04/2024 - Vascular Dr. Zambrano 05/01/24 - follow up recommended in 6 months: 11/11/24 TBD #[phone]. - call independently - MTM 05/25/2024, completed - Neurosurgery Dr. Zepeda, following up with [employer] DEVELOPER: 06/04/2025 11:00 AM (Arrive by 10:45 [...] clinic with 24/7 after hours services available. Mixed Crop Farmer will remain available as needed. documented as of this encounter Visit Diagnoses Not on filedocumented in this encounter Additional Health Concerns Active Problems Noted Date Diagnosed Date Increased risk of re-admission 02/18/2024 Assessment Noted Time PHQ-9 Depression Total Score: 5 03/17/20 24 9:45 AM CDT documented as of this encounter Care Teams Pharmacy Laboratory Technician Relationship Specialty Start Date End Date Winston Villatoro OD [facility] [address] [facility] [address] [place] [address] PCP - Ophthalmology Ophthalmology 02/11/13 Denise Woodson Ra, APRN TRADE MARKER [address] [place] [address] PCP - General Family Practice 09/21/20 Denise Woodson Ra, APRN TRADE MARKER [address] [place] [address] Assigned PCP 07/17/20 Usha Simon APRN TRADE MARKER 909 [facility] [id number] [place] [address] Nurse Practitioner Neurological Surgery 01/24/24 Dangelo Salinas MD [address] [place] [address] Neurology 01/27/24 Anastasia Stearns, RN Lead Mixed Crop Farmer 02/06/24 Germaine Lopez, W Community Health Worker Primary Care - CC 02/18/24 Lisa Zambrano MD [address] [facility] [address] [place] [address] Assigned Heart and Vascular Provider 05/08/24 07/07/24 Raul Hoyos MD 909 [id number] [place], [place] 030185 Assigned Neuroscience Provider 05/08/24 07/07/24 Joya Lira [facility] [address] [address] Pharmacist Pharmacist 05/25/24 Joya Lira [facility] [address] [place], [place] [phone] Assigned MTM Pharmacist 06/08/24 Fabi Coates MD 420 [facility] 75 [place], [place] [phone] Genetics, Clinical 06/18/24 Robin Zepeda MD 909 [id number] [place], [place] 373525 Assigned Neuroscience Provider 07/08/24 Danna Cardenas PA-C [address] [place] [address] Assigned Heart and Vascular Provider 07/08/24 Felicita Desai, RN Lead Mixed Crop Farmer 07/14/24 documented as of this encounter
--- OUTSIDE RECORDS SUMMARY | 2024-07-16 13:55 | XMS_ITS | Encounter Summary ---
Author Organization [facility] Address [address] [place] [address] Care Team Providers Care Respiratory Therapy Technician Name Role Phone ShaunaWinston OD Unavailable [phone] Denise Woodson Ra, APRN FUNERAL LOCATION MANAGER Unavailable + [phone] Denise Woodson Ra, APRN FUNERAL LOCATION MANAGER Primary Care Provid er Usha Simon APRN FUNERAL LOCATION MANAGER Unavailable + [phone] Dangelo Salinas MD Unavailable Anastasia Stearns RN Unavailable [phone] Germaine Lopez CHW Unavailable [phone] Lisa Zambrano MD Unavailable + [phone] Raul Hoyos MD Unavailable [phone] Joya Lira [facility] Unavailable [phone] Joya Lira [facility] Unavailable [phone] Fabi Coates MD Unavailable [phone] Robin Zepeda MD Unavailable [phone] Danna Cardenas PA-C Unavailable [phone] Felicita Desai RN Unavailable Unavailab le Reason for Visit * Reason Onset Date Comments Symptoms 05/12/2024 Stroke symptoms per pt Encounter Details Date Type Department Care Team (Late st Contact Info) Description 05/12/2024 [facility] [address] 3rd [place] [address] Raul Hoyos MD [address] [place] [address] [id number] [place] [address] Symptoms (Stroke symptoms per pt ) Social [...] How often do you attend anabaptism or christianity serv ices? 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 Not on file Not [...] states she was at the ED at [facility] on Saturday05/08/24 and they also did [...] 05/12/2024 10:18 AM CDT [facility] Call Center Phone Message May a [...] st Contact Info) Description 07/20/2024 12:00 PM ADZING AND BORING MACHINE OPERATOR Virtual Visit [facility] [address] [place] [address] Denise Woodson Ra, MILKING MACHINE TECHNICIAN FUNERAL LOCATION MANAGER [address] [place] [address] 07/30/2024 8:30 AM ADZING AND BORING MACHINE OPERATOR Virtual Visit [facility] [address] 3rd [place] [phone] Randy Maradiaga, [address] [address] 08/04/2024 12:00 PM ADZING AND BORING MACHINE OPERATOR Virtual Visit [facility] [address] [place] [address] Arthur Salas, [address] [place] [address] 08/04/2024 3:30 PM ADZING AND BORING MACHINE OPERATOR Virtual Visit [facility] [address] [place] [phone] Denise Woodson Ra, MILKING MACHINE TECHNICIAN FUNERAL LOCATION MANAGER [address] [place], [place] [phone] 08/07/2024 1:00 PM ADZING AND BORING MACHINE OPERATOR Appointment [facility] [address] [facility] [address] [place] [phone] Danna Cardenas PA-C 6405 [place] [address] 08/10/2024 12:30 PM ADZING AND BORING MACHINE OPERATOR Virtual Visit [facility] Neuropsychology [address] [phone] Robin Zepeda MD [address] [place] [address] 08/17/2024 12:30 PM ADZING AND BORING MACHINE OPERATOR Office Visit [facility] Neuropsychology [address] [phone] Robin Zepeda MD [address] [place] [address] Tulio Ogden, PhD [address] [address] 09/04/2024 11:00 AM ADZING AND BORING MACHINE OPERATOR Office Visit [facility] [address] [place] [phone] Denise Woodson Ra, MILKING MACHINE TECHNICIAN FUNERAL LOCATION MANAGER [address] [place] [address] 09/18/2024 1:00 PM ADZING AND BORING MACHINE OPERATOR Office Visit [facility] [address] [place] [phone] Denise Woodson , MILKING MACHINE TECHNICIAN FUNERAL LOCATION MANAGER [address] [place], [place] [phone] 09/29/2024 9:00 AM ADZING AND BORING MACHINE OPERATOR Virtual Visit [facility] Neurology [address] 3rd [place] [phone] Randy Maradiaga, [address] 5[address] 10/09/2024 1:20 PM ADZING AND BORING MACHINE OPERATOR Office Visit [facility] [place] [address] [facility] [address] [place] [phone] Danna Cardenas PA-C [address] [place], [place] 42[address] 10/30/2024 4:00 PM ADZING AND BORING MACHINE OPERATOR Virtual Visit [facility] Vascular [place] [address] [place] [phone] Lisa Zambrano MD [address] [place], [place] [address] 12/29/2024 12:45 PM CDT Office Visit [facility] [address] [place], [place] [address]e Explorer [address] [phone] Fabi Coates MD [address] [place] [address] 12/29/2024 1:45 PM CDT Office Visit [facility] [address] [place], [place] [address] Explorer [address] [phone] Fabi Coates MD [address] [place] [address] 06/01/2025 11:15 AM CDT Appointment [facility] [address] [place] [address] Robin Zepeda MD [address] [place] [address]19[address] 06/04/2025 11:00 AM CDT Office Visit [facility] Neuro[facility] [address] 3rd [place] [phone] Robin Zepeda MD [address] [place] [address] Usha Simon APRN [address] [address] documented as of this encounter Goals Goal [...] Health weekly - PT, OT and CABLE SPLICER, continuing through [facility]: - Continue following up with PCP: 09/04/2024 - Vascular Dr. Zambrano 05/01/24 - follow up recommended in 6 months: 11/11/24 TBD #[phone]. - call independently - MTM 05/25/2024, completed - Neurosurgery Dr. Zepeda, following up with KETTLE WORKER: 06/04/2025 11:00 AM (Arrive by 10:45 [...] with 24/7 after hours services available. Director Dermatology will remain available as needed. documented as of this encounter Visit Diagnoses Not on filedocumented in this encounter Additional Health Concerns Active Problems Noted Date Diagnosed Date Increased risk of re-admission 02/18/2024 Assessment Noted Time PHQ-9 Depression Total Score: 5 03/17/20 24 9:45 AM CDT documented as of this encounter Care Teams Respiratory Therapy Technician Relationship Specialty Start Date End Date Winston Villatoro OD [facility] 701 [facility] 95 [place] [address] PCP - Ophthalmology Ophthalmology 02/11/13 Denise Woodson Ra, APRN FUNERAL LOCATION MANAGER [address] [place] [address] PCP - General Family Practice 09/21/20 Denise Woodson Ra, APRN FUNERAL LOCATION MANAGER [address] [place] [address] Assigned PCP 07/17/20 Usha Simon APRN FUNERAL LOCATION MANAGER 909 [facility] [address] Nurse Practitioner Neurological Surgery 01/24/24 Dangelo Salinas MD [address] [place] [address] Neurology 01/27/24 Anastasia Stearns, RN Lead Director Dermatology 02/06/24 Germaine Lopez, W Community Health Worker Primary Care - CC 02/18/24 Lisa Zambrano MD 6405 [facility] [address] [place], [place] [address] Assigned Heart and Vascular Provider 05/08/24 07/07/24 Raul Hoyos MD [address] [id number] Assigned Neuroscience Provider 05/08/24 07/07/24 Joya Lira [facility] [address] [place], [place] [phone] Pharmacist Pharmacist 05/25/24 Joya Lira [facility] [address] [place], [place] [phone] Assigned MTM Pharmacist 06/08/24 Fabi Coates MD 420 [facility] 75 [place], [place] [address] Genetics, Clinical 06/18/24 Robin Zepeda MD [address] [address] Assigned Neuroscience Provider 07/08/24 Danna Cardenas PA-C 6405 [place] [address] Assigned Heart and Vascular Provider 07/08/24 Felicita Desai, RN Lead Director Dermatology 07/14/24 documented as of this encounter
--- OUTSIDE RECORDS SUMMARY | 2024-07-16 13:55 | XMS_ITS | Encounter Summary ---
Author Organization [facility] Address [address] [place] [address] Care Team Providers Care Circulator Name Role Phone Winston Villatoro Se OD Unavailable [phone] Denise Woodson Ra, APRN BRIDGE GAME DIRECTOR Unavailable + [phone] Denise Woodson Ra, APRN BRIDGE GAME DIRECTOR Primary Care Provid er Usha Simon APRN BRIDGE GAME DIRECTOR Unavailable + [phone] Dangelo Salinas MD Unavailable Anastasia Stearns RN Unavailable [phone] Germaine Lopez CHW Unavailable [phone] Lisa Zambrano MD Unavailable Raul Hoyos MD Unavailable Joya Lira [facility] Unavailable [phone] Joya Lira [facility] Unavailable [phone] Fabi Coates MD Unavailable [phone] Robin Zepeda MD Unavailable [phone] Danna Cardenas PA-C Unavailable [phone] Felicita Desai RN Unavailable Unavailab le Encounter Details Date Type Department Care Team (Late st Contact Info) Description 05/12/2024 [facility] [address] [place] [phone] ChintanDenise Ra, AGENCY DEVELOPMENT MANAGER BRIDGE GAME DIRECTOR [address] [place], [place] [phone] Social History Tobacco Use Types Packs/Day Years [...] How often do you attend presybeterian or methodist serv ices? 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 Forms was placed in the provider basket for review and sign. Anastasia Velasquez Nurse Specialist [facility] * Telephone Encounter - Anastasia Abad - 05/20/2024 11:01 AM CDT Kaleb with [employer] calling to inquire if short term disability forms were received. Will Re-send the Forms. Forms were not in the provider's basket, nor was there an encounter statingthe provider received/signed the form. Anastasia Velasquez Nurse Specialist [facility] * Telephone Encounter - Donald Newman - 05/12/2024 4:28 PM CDT Forms/Letter Request Type of form/letter: OTHER: FORMS from ([employer]) Do we have the form/letter: Yes: In the Dr's in basket at front man Who is the form from? [employer] Where did/will the form come from? form was faxed in When is form/letter needed by: FIFI How would you like the form/letter returned: Patient Notified form requests are processed in 5-7 business days:No Could we send this information to you in [facility] or would you prefer to receive a phone call?: No preference Okay to leave a detailed message?: No at Other phone number: FAX: [phone] documented in this encounter Plan of Treatment Upcoming Encounters Date Type Department Care Team (Late st Contact Info) Description 07/20/2024 12:00 PM RECOVERY ADVOCATE Virtual Visit [facility] [address] [place] [address] Denise Woodson Ra, AGENCY DEVELOPMENT MANAGER [facility] [address] [place], [place] [phone] 07/30/2024 8:30 AM RECOVERY ADVOCATE Virtual Visit [facility] [address] [phone] Randy Maradiaga, [address] [place] [address] 08/04/2024 12:00 PM RECOVERY ADVOCATE Virtual Visit [facility] [address] [place] [address] [facility] [address] [place] [address] 08/04/2024 3:30 PM RECOVERY ADVOCATE Virtual Visit [facility] [address] [place] [phone] Denise oWodson Ra, AGENCY DEVELOPMENT MANAGER [facility] [address] [place], [place] [phone] 08/07/2024 1:00 PM RECOVERY ADVOCATE Appointment [facility] 6405 [facility] [address] [place] [phone] Danna Cardenas [employer] 6405 [place], [place] [address]155 08/10/2024 12:30 PM RECOVERY ADVOCATE Virtual Visit [facility] Neuropsychology [address] [phone] Robin Zepeda MD [address] [place] [address] 08/17/2024 12:30 PM RECOVERY ADVOCATE Office Visit [facility] Neuropsychology [address] [phone] Robin Zepeda MD [address] [place] [address] Tulio Ogden, PhD [address] [address] 09/04/2024 11:00 AM RECOVERY ADVOCATE Office Visit [facility] [address] [place] [phone] Denise Woodson Ra, AGENCY DEVELOPMENT MANAGER BRIDGE GAME DIRECTOR [address] [place], [place] [phone] 09/18/2024 1:00 PM RECOVERY ADVOCATE Office Visit [facility] [address] [place] [phone] Denise Woodson Ra, AGENCY DEVELOPMENT MANAGER BRIDGE GAME DIRECTOR [address] [place], [place] [phone] 09/29/2024 9:00 AM RECOVERY ADVOCATE Virtual Visit [facility] Neurology [facility] 909 [facility] 3rd [place] [phone] Randy Maradiaga, [address] [address] 10/09/2024 1:20 PM RECOVERY ADVOCATE Office Visit [facility] Heart [facility] 6[address] [facility] [address] [place] [phone] Danna Cardenas PA-C [address] [place], [place] [address] 10/30/2024 4:00 PM RECOVERY ADVOCATE Virtual Visit [facility] Vascular [facility] [address] [place] [phone] Lisa Zambrano MD [address] [place] [address] 12/29/2024 12:45 PM CDT Office Visit [facility]ty [facility] [address] [place] [address] [phone] Fabi Coates MD [address] [address] 12/29/2024 1:45 PM CDT Office Visit [facility] [address] [place] [address] [phone] Fabi Coates MD [address] [place] [address] 889325 06/01/2025 11:15 AM CDT Appointment [facility] [address] [facility] [address] [place] [phone] Robin Zepeda MD [address] [place] [address] 301975 06/04/2025 11:00 AM CDT Office Visit [facility] Neurosurgery [address] 3rd [place] [phone] Robin Zepeda MD [address] [place] [address] 261605 Usha Simon APRN [address] [address] documented as of this encounter Goals Goal [...] Mental Health weekly - PT, OT and REIKI PRACTITIONER, continuing through [facility]: - Continue following up with PCP: 09/04/2024 - Vascular Dr. Zambrano 05/01/24 - follow up recommended in 6 months: 11/11/24 TBD #[phone]. - call independently - MTM 05/25/2024, completed - Neurosurgery Dr. Zepeda, following up with HEAD WAITER/WAITRESS: 06/04/2025 11:00 AM (Arrive by 10:45 AM) Usha Simon APRN BRIDGE GAME DIRECTOR 2. I will take my medications as prescribed. 3. I will discuss, review, schedule and complete recommended overdue health maintenance with my Primary Care Provider. 4. I will contact my care team with questions, concerns, support needs. I will use the clinic as a resource and I understand I can contact my clinic with 24/7 after hours services available. Assistant Real Estate Manager will remain available as needed. documented as of this encounter Visit Diagnoses Not on filedocumented in this encounter Additional Health Concerns Active Problems Noted Date Diagnosed Date Increased risk of re-admission 02/18/2024 Assessment Noted Time PHQ-9 Depression Total Score: 5 03/17/20 24 9:45 AM CDT documented as of this encounter Care Teams Circulator Relationship Specialty Start Date End Date Winston Villatoro OD [facility] [address] [place] [id number] PCP - Ophthalmology Ophthalmology 02/11/13 Denise Woodson Ra, AGENCY DEVELOPMENT MANAGER BRIDGE GAME DIRECTOR [address] [place] [address] PCP - General Family Practice 09/21/20 Denise Woodson Ra AGENCY DEVELOPMENT MANAGER BRIDGE GAME DIRECTOR [address] [facility] [place] [address] Assigned PCP 07/17/20 Usha iSmon APRN BRIDGE GAME DIRECTOR [address] 177785 Nurse Practitioner Neurological Surgery 01/24/24 Dangelo Salinas MD [address] [place], [place] [phone] Neurology 01/27/24 Anastasia Stearns, RN Lead Assistant Real Estate Manager 02/06/24 Germaine Lopez, [facility] Community Health Worker Primary Care - CC 02/18/24 Lisa Zambrano MD 6405 [facility] [place] [address] 883555 Assigned Heart and Vascular Provider 05/08/24 07/07/24 Raul Hoyos MD [address] [address] Assigned Neuroscience Provider 05/08/24 07/07/24 Joya Lira [facility] [address] [place], [place] [phone] Pharmacist Pharmacist 05/25/24 Joya Lira [facility] [address] [place] [address] Assigned MTM Pharmacist 06/08/24 Fabi Coates MD 420 [facility] 75 [place] [address] Genetics, Clinical 06/18/24 Robin Zepeda MD 909 [facility]121[place], [place] [address] Assigned Neuroscience Provider 07/08/24 Danna Cardenas PA-C [address] [place], [place] 8910[address] Assigned Heart and Vascular Provider 07/08/24 Felicita Desai RN Lead Assistant Real Estate Manager 07/14/24 documented as of this encounter
--- OUTSIDE RECORDS SUMMARY | 2024-07-16 13:55 | XMS_ITS | Encounter Summary ---
Author Organization [place] Address [address] [place] [address]. [place] [address] Care Team Providers Care Wood Milling Machine Tender Name Role Phone ShaunaWinston OD Unavailable [phone] Denise Woodson Ra, APRN POTTER OR CERAMIC ARTIST Unavailable + [phone] Denise Woodson Ra, APRN POTTER OR CERAMIC ARTIST Primary Care Provid er Usha Simon APRN POTTER OR CERAMIC ARTIST Unavailable Dangelo Salinas MD Unavailable Anastasia Stearns RN Unavailable Germaine Lopez CHW Unavailable Lisa Zambrano MD Unavailable Raul Hoyos MD Unavailable [phone] Encounter Details Date Type Department Care Team (Late st Contact Info) Description 05/12/2024 Telephone [facility] [address] [place] [address] Denise Woodson Ra, APRN POTTER OR CERAMIC ARTIST [address] [place] [address] Social History Tobacco Use Types [...] How often do you attend moravian or yarsanism serv ices? 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 She went to the ER in [place]. They did imaging and thought it was a migraine. Over the weekend her symptoms got worse. She went to [place] to the ER. Her headache went away. [...] st Contact Info) Description 07/20/2024 12:00 PM QUANTOMETER OPERATOR Virtual Visit [facility] [address] [place] [phone] Denise Woodson Ra, IMAGING ADMINISTRATOR [facility] [id number] [place] [address] 07/30/2024 8:30 AM QUANTOMETER OPERATOR Virtual Visit [facility] Neurology Clinic [address] 3rd [place] [phone] Randy Maradiaga, [address] [address] 08/04/2024 12:00 PM QUANTOMETER OPERATOR Virtual Visit [facility] Mental Health and Addiction [address] [place] [address] Arthur Salas, LIFE SKILLS COORDINATOR [address] [place] [address] 08/04/2024 3:30 PM QUANTOMETER OPERATOR Virtual Visit [facility] [address] [place] [address] Denise Woodsno Ra, IMAGING ADMINISTRATOR [facility] [address] [place], [place] [address] 08/07/2024 1:00 PM QUANTOMETER OPERATOR Appointment [facility] Heart Care [address] [facility] [address] [place] [phone] Danna Cardenas PA-C 6[address] [place], [place] [address]585 08/10/2024 12:30 PM QUANTOMETER OPERATOR Virtual Visit [facility] Neuropsychology [address] [phone] Robin Zepeda MD [address] [place] [address] 08/17/2024 12:30 PM QUANTOMETER OPERATOR Office Visit [facility] Neuropsychology [address] [phone] Robin Zepeda MD [address] [place] [address] Tulio Ogden, PhD [address] [address] 09/04/2024 11:00 AM QUANTOMETER OPERATOR Office Visit [facility] [address] [place] [phone] Denise Woodson Ra, IMAGING ADMINISTRATOR POTTER OR CERAMIC ARTIST [address] [place] [address] 09/18/2024 1:00 PM QUANTOMETER OPERATOR [facility] [address] [facility] [place] [place] [phone] Denise Woodson Ra, IMAGING ADMINISTRATOR POTTER OR CERAMIC ARTIST [address] [place] [address] 09/29/2024 9:00 AM QUANTOMETER OPERATOR Virtual Visit [facility] Neurology [address] [phone] Randy Maradiaga, [address] [address] 10/09/2024 1:20 PM QUANTOMETER OPERATOR Office Visit [facility] Heart [facility] 6405 [facility] [address] [place] [phone] Danna Cardenas PA-C 6[address] [place] [address] 10/30/2024 4:00 PM QUANTOMETER OPERATOR Virtual Visit [facility] Vascular [facility] [address] [place] [phone] Lisa Zambrano MD [address] [place] [address] 12/29/2024 12:45 PM CDT Office Visit [facility] [address] [facility] [address],[place] [phone] Fabi Coates MD 420 [facility] 75 [place], [place] [address] 12/29/2024 1:45 PM CDT Office Visit [facility]ty [facility] 2450 [facility] [address],[place] [phone] Fabi Coates MD [address] [facility] 75 [place] [address] 06/01/2025 11:15 AM CDT Appointment [facility] Imaging [address] [place] [phone] Robin Zepeda MD [address] [place] [address] 06/04/2025 11:00 AM CDT Office Visit [facility] Neurosurgery Clinic [address] 3rd [place] [phone] Robin Zepeda MD [address] [place] [address] Usha Simon APRN [address] [address] documented as of this encounter Goals Goal [...] Health weekly - PT, OT and MOTION PICTURE SET GRIP, continuing through [facility] [place]: - Continue following up with PCP: 09/04/2024 - Vascular Dr. Zambrano 05/01/24 - follow up recommended in 6 months: 11/11/24 D #[phone]. - call independently - MTM 05/25/2024, completed - Neurosurgery Dr. Zepeda, following up with RADIO TESTER: 06/04/2025 11:00 AM (Arrive by 10:45 AM) [...] clinic with 08/04 after hours services available. Transit Planner will remain available as needed. documented as of this encounter Visit Diagnoses Not on filedocumented in this encounter Additional Health Concerns Active Problems Noted Date Diagnosed Date Increased risk of re-admission 02/18/2024 Assessment Noted Time PHQ-9 Depression Total Score: 5 03/17/20 24 9:45 AM CDT documented as of this encounter Care Teams Wood Milling Machine Tender Relationship Specialty Start Date End Date Winston Villatoro OD [facility] 701 [facility] [address] [place] [address] PCP - Ophthalmology Ophthalmology 02/11/13 Denise Woodson Ra, APRN POTTER OR CERAMIC ARTIST [address] [place] [address] PCP - General Family Practice 09/21/20 Denise Woodson Ra, APRN CNP [address] [place] [address] Assigned PCP 07/17/20 Usha Simon APRN CNP 9 [facility]2121[place], [place] [address] Nurse Practitioner Neurological Surgery 01/24/24 Dangelo Salinas MD [address] [place] [address] Neurology 01/27/24 Anastasia Stearns, RN Lead Transit Planner 02/06/24 Germaine Lopez, W Community Health Worker Primary Care - CC 02/18/24 Lisa Zambrano MD [address] [place] [address] Assigned Heart and Vascular Provider 05/08/24 07/07/24 Raul Hoyos MD 909 [facility] [id number] [place] [address] Assigned Neuroscience Provider 05/08/24 07/07/24 documented as of this encounter
--- OUTSIDE RECORDS SUMMARY | 2024-07-16 13:55 | XMS_ITS | Encounter Summary ---
Author Organization [place] Address [address] [place] [address] Care Team Providers Care Bandmill Operator Name Role Phone Winston Villatoro Se OD Unavailable [phone] Denise Woodson Ra, APRN SURFACE TO AIR WEAPONS OFFICER Unavailable + [phone] Denise Woodson Ra, APRN SURFACE TO AIR WEAPONS OFFICER Primary Care Provid er Usha Simon APRN SURFACE TO AIR WEAPONS OFFICER Unavailable +- [phone] Dangelo Salinas MD Unavailable Anastasia Stearns RN Unavailable [phone] Germaine Lopez CHW Unavailable [phone] Lisa Zambrano MD Unavailable + [phone] Raul Hoyos MD Unavailable Encounter Details Date [...] How often do you attend yazidi or uatsdin serv ices? 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 Not on file Not on file Not on file Not on file Not on file Not on file documented as of this encounter Plan of Treatment Upcoming Encounters Date Type Department Care Team (Late st Contact Info) Description 07/20/2024 12:00 PM BRIM STIFFENER Virtual Visit [facility] [address] [place] [phone] Denise Woodson Ra, DINING ROOM COORDINATOR SURFACE TO AIR WEAPONS OFFICER [address] [place] [address] 07/30/2024 8:30 AM BRIM STIFFENER Virtual Visit [facility] Neurology [address] 3rd [place] [address] Randy Maradiaga, [address] [address] 08/04/2024 12:00 PM BRIM STIFFENER Virtual Visit [facility] Mental Health and Addiction [address] [place] [phone] Neisha Salasiose, CLINICAL RESEARCH ANALYST [address] [place] [address] 08/04/2024 3:30 PM BRIM STIFFENER Virtual Visit [facility] [address] [place] [address] Denise Woodson Ra, DINING ROOM COORDINATOR [facility] [address] [place], [place] [address] 08/07/2024 1:00 PM BRIM STIFFENER Appointment [facility] Heart Care 6[address] [facility] [address] [place] [phone] Danna Cardenas PA-C 6405 [place] [address] 08/10/2024 12:30 PM BRIM STIFFENER Virtual Visit [facility] Neuropsychology [address] [phone] Robin Zepeda MD [address] [place] [address] 08/17/2024 12:30 PM BRIM STIFFENER Office Visit [facility] Neuropsychology [address] [phone] Robin Zepeda MD [address] [place] [address] Tulio Ogden, PhD [address] [address] 09/04/2024 11:00 AM BRIM STIFFENER Office Visit [facility] [address] [place] [address] Denise Woodson Ra, DINING ROOM COORDINATOR SURFACE TO AIR WEAPONS OFFICER [address] [place] [address] 09/18/2024 1:00 PM BRIM STIFFENER Office Visit [facility] [address] [place] [phone] Denise Woodson Ra, DINING ROOM COORDINATOR SURFACE TO AIR WEAPONS OFFICER [address] [place] [address] 09/29/2024 9:00 AM BRIM STIFFENER Virtual Visit [facility] Neurology [facility] 909 [facility] 3rd [place] [phone] Randy Maradiaga, [address] [place] [address] 10/09/2024 1:20 PM BRIM STIFFENER Office Visit [facility] Heart [facility] 6[address] [facility] [address] [place] [phone] Danna Cardenas PA-C 6405 [place], [place] [address] 10/30/2024 4:00 PM BRIM STIFFENER Virtual Visit [facility] Vascular [place] [address] [place] [phone] Lisa Zambrano MD [address] [place] [address] 12/29/2024 12:45 PM CDT Office Visit [facility] 2450 [facility] 12th Fl[address],[place] [phone] Fabi Coates MD 420 [facility] 75 [place], [place] [address] 12/29/2024 1:45 PM CDT Office Visit [facility] 24[address] [facility] Explorer [facility] 12th [address],[place] [address] Fabi Coates MD 420 [facility] 75 [place] [address] 06/01/2025 11:15 AM CDT Appointment [facility] Specialty [facility] Center Imaging [address] [place] [address] [place] [phone] Robin Zepeda MD [address] [place] [address] 06/04/2025 11:00 AM CDT Office Visit [facility] Neurosurgery [address] 3rd [place] [address] Robin Zepeda MD [address] [place] [address] Usha Simon APRN [address] [address] documented as of this encounter Goals Goal [...] Health weekly - PT, OT and SERVICE DESK MANAGER, continuing through [facility] [place]: - Continue following up with PCP: 09/04/2024 - Vascular Dr. Zambrano 05/01/24 - follow up recommended in 6 months: 11/11/24 D #[phone]. - call independently - MTM 05/25/2024, completed - Neurosurgery Dr. Zepeda, following up with TWENTY ONE DEALER: 06/04/2025 11:00 AM (Arrive by 10:45 AM) [...] clinic with 24/ after hours services available. [facility] will remain available as needed. documented as of this encounter Visit Diagnoses Not on filedocumented in this encounter Additional Health Concerns Active Problems Noted Date Diagnosed Date Increased risk of re-admission 02/18/2024 Assessment Noted Time PHQ-9 Depression Total Score: 5 03/17/20 24 9:45 AM CDT documented as of this encounter Care Teams Bandmill Operator Relationship Specialty Start Date End Date Winston Villatoro, AMELIE [facility] [address] [facility] [address] [place] [address] PCP - Ophthalmology Ophthalmology 02/11/13 Denise Woodson Ra, APRN SURFACE TO AIR WEAPONS OFFICER [address] [place] [address] PCP - General Family Practice 09/21/20 Denise Woodson Ra, APRN CNP [address] [place] [address] Assigned PCP 07/17/20 Usha Simon APRN CNP 909 [facility]2121[place], [place] [address] Nurse Practitioner Neurological Surgery 01/24/24 Dangelo Salinas MD [address] [place] [address] Neurology 01/27/24 Anastasia Stearns, RN Lead [facility] 02/06/24 Germaine Lopez, [facility] Community Health Worker Primary Care - CC 02/18/24 Lisa Zambrano MD [address] [place] [address] Assigned Heart and Vascular Provider 05/08/24 07/07/24 Raul Hoyos MD 909 [facility]2121[place], [place] [address] Assigned Neuroscience Provider 05/08/24 07/07/24 documented as of this encounter
--- OUTSIDE RECORDS SUMMARY | 2024-07-16 13:55 | XMS_ITS | Encounter Summary ---
Author Organization [place] Address [address] [place] [address] Care Team Providers Care Agricultural Research Technologist Name Role Phone ShaunaWinston OD Unavailable [phone] Denise Woodson Ra, APRN JACKSPOOLER Unavailable + [phone] Denise Woodson Ra, APRN JACKSPOOLER Primary Care Provid er Usha Simon APRN JACKSPOOLER Unavailable Dangelo Salinas MD Unavailable Anastasia Stearns RN Unavailable [phone] Germaine Lopez CHW Unavailable Lisa Zambrano MD Unavailable Raul Hoyos MD Unavailable Encounter Details Date Type Department Care Team (Late st Contact Info) Description 05/08/2024 [facility] Medical Advice [facility] Neurosurgery Clinic [address] 3rd [place] [address] Robin Zepeda MD [address] [place] [address] [address] Social History Tobacco Use Types [...] How often do you attend quaker or taoist serv ices? 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 Not on file Not on file Not on file Not on file Not on file Not on file documented as of this encounter Plan of Treatment Upcoming Encounters Date Type Department Care Team (Late st Contact Info) Description 07/20/2024 12:00 PM SALES REPRESENTATIVE MEATS Virtual Visit [facility] [address] [place] [phone] Denise Woodson Ra, AIR DEFENSE CONTROL OFFICER [facility] [address] [place], [place] [address] 07/30/2024 8:30 AM SALES REPRESENTATIVE MEATS Virtual Visit [facility] Neurology [address] 3rd [place] [address] Randy Maradiaga, DO 909 [place] [address] 08/04/2024 12:00 PM SALES REPRESENTATIVE MEATS Virtual Visit [facility] [place] [address] [place] [address] Arthur Salas, [facility] [address] [place] [address] 08/04/2024 3:30 PM SALES REPRESENTATIVE MEATS Virtual Visit [facility] [address] [place] [address] Denise Woodson Ra, AIR DEFENSE CONTROL OFFICER [facility] [address] [place], [place] [address] 08/07/2024 1:00 PM SALES REPRESENTATIVE MEATS Appointment [facility] Heart Care [address] [facility] [address] [place] [phone] Danna Cardenas PA-C 6405 [place], [place] 77[address] 08/10/2024 12:30 PM SALES REPRESENTATIVE MEATS Virtual Visit [facility] Neuropsychology [address] [phone] Robin Zepeda MD [address] [place] [address] 08/17/2024 12:30 PM SALES REPRESENTATIVE MEATS Office Visit [facility] Neuropsychology [address] [phone] Robin Zepeda MD [address] [place] [address] Tulio Ogden, PhD [address] [address] 09/04/2024 11:00 AM SALES REPRESENTATIVE MEATS Office Visit [facility] [address] [place] [phone] Denise Woodson Ra, AIR DEFENSE CONTROL OFFICER JACKSPOOLER [address] [place], [place] [address] 09/18/2024 1:00 PM SALES REPRESENTATIVE MEATS Office Visit [facility] [address] [place] [phone] Denise Woodson Ra, AIR DEFENSE CONTROL OFFICER JACKSPOOLER [address] [place] [address] 09/29/2024 9:00 AM SALES REPRESENTATIVE MEATS Virtual Visit [facility] Neurology [address] [phone] Randy Maradiaga, [address] [address] 10/09/2024 1:20 PM SALES REPRESENTATIVE MEATS Office Visit [facility] Heart [place] [address]00 [place] [phone] Danna Cardenas PA-C 6405 [place] [address] 10/30/2024 4:00 PM SALES REPRESENTATIVE MEATS Virtual Visit [facility] Vascular [place] [address] [place] [phone] Lisa Zambrano MD [address] [place] [address] 12/29/2024 12:45 PM CDT Office Visit [facility] [address] [place], [place] [address] Explorer [address],[place] [address] Fabi Coates MD [address] [address] 12/29/2024 1:45 PM CDT Office Visit [facility] Pediatric Specialty Clinic [address] [place] [phone] Fabi Coates MD [address] [address] 06/01/2025 11:[address] [facility] Imaging [address] [facility] [address] [place] [phone] Robin Zepeda MD [address] [place] [address] 06/04/2025 11:00 AM CDT Office Visit [facility] Neurosurgery [address] 3rd [place] [phone] Robin Zepeda MD [address] [place] [address] Usha Simon APRN CNP [address] [place] [address] documented as of this encounter Goals Goal [...] Mental Health weekly - PT, OT and MARKET EDITOR, continuing through [facility] [place]: - Continue following up with PCP: 09/04/2024 - Vascular Dr. Zambrano 05/01/24 - follow up recommended in 6 months: 11/11/24 TBD #[phone]. - call independently - MTM 05/25/2024, completed - Neurosurgery Dr. Zepeda, following up with WHITE MIXING OPERATOR: 06/04/2025 11:00 AM (Arrive by 10:45 [...] clinic with 24/7 after hours services available. Gusset Maker will remain available as needed. documented as of this encounter Visit Diagnoses Not on filedocumented in this encounter Additional Health Concerns Active Problems Noted Date Diagnosed Date Increased risk of re-admission 02/18/2024 Assessment Noted Time PHQ-9 Depression Total Score: 5 03/17/20 24 9:45 AM CDT documented as of this encounter Care Teams Agricultural Research Technologist Relationship Specialty Start Date End Date Winston Villatoro OD [facility] [place] 701 [facility] [address] [place] [address] PCP - Ophthalmology Ophthalmology 02/11/13 Denise Woodson Ra, APRN JACKSPOOLER [address] [place] [place] [address] PCP - General Family Practice 09/21/20 Denise Woodson Ra, APRN JACKSPOOLER [address] [place] [address] Assigned PCP 07/17/20 Usha Simon APRN JACKSPOOLER [address] [address] Nurse Practitioner Neurological Surgery 01/24/24 Dangelo Salinas MD [address] [place] [address] Neurology 01/27/24 Anastasia Stearns, RN Lead Gusset Maker 02/06/24 Germaine Lopez, [facility] Community Health Worker Primary Care - CC 02/18/24 Lisa Zambrano MD [address] [place] [address] Assigned Heart and Vascular Provider 05/08/24 07/07/24 Raul Hoyos MD [address] [address] Assigned Neuroscience Provider 05/08/24 07/07/24 documented as of this encounter
--- OUTSIDE RECORDS SUMMARY | 2024-07-16 13:55 | XMS_ITS | Encounter Summary ---
Author Organization [facility] Address [address] [place] [address] Care Team Providers Care Ramp And Cargo Supervisor Name Role Phone Winston Villatoro Se OD Unavailable +[phone] Denise Woodson Ra, APRN TALEND DEVELOPER Unavailable + [phone] Denise Woodson Ra, APRN TALEND DEVELOPER Primary Care Provid er Usha Simon APRN TALEND DEVELOPER Unavailable +- [phone] Dangelo Salinas MD Unavailable Anastasia Stearns RN Unavailable +[phone] Germaine Lopez CHW Unavailable +[phone] Lisa Zambrano MD Unavailable + [phone] Raul Hoyos MD Unavailable Encounter Details Date [...] How often do you attend yarsani or taoism serv ices? 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 Not on file Not on file Not on file Not on file Not on file Not on file documented as of this encounter Plan of Treatment Upcoming Encounters Date Type Department Care Team (Late st Contact Info) Description 07/20/2024 12:00 PM CUTLET MAKER PORK Virtual Visit [facility] [address] [place] [phone] Denise Woodson Ra, INDUSTRIAL PAINTER TALEND DEVELOPER [address] [place] [address] 07/30/2024 8:30 AM CUTLET MAKER PORK Virtual Visit [facility] Neurology [address] 3rd [place] [address] Randy Maradiaga, [address] 7201[address] 08/04/2024 12:00 PM CUTLET MAKER PORK Virtual Visit [facility] Mental Health and Addiction [address] [place] [phone] Neisha Salasiose, DREDGE WORKER [address] [place] [address] 08/04/2024 3:30 PM CUTLET MAKER PORK Virtual Visit [facility] [address] [place] [address] Denise Woodson Ra, INDUSTRIAL PAINTER [facility] [address] [place], [place] [phone] 08/07/2024 1:00 PM CUTLET MAKER PORK Appointment [facility] [address] [facility] [address] [place] [phone] Danna Cardenas PA-C 6405 [place] [address] 08/10/2024 12:30 PM CUTLET MAKER PORK Virtual Visit [facility] Neuropsychology [address] [phone] Robin Zepeda MD [address] [place] [address]27[address] 08/17/2024 12:30 PM CUTLET MAKER PORK Office Visit [facility] Neuropsychology [address] [phone] Robin Zepeda MD [address] [place] [address] Tulio Ogden, PhD [address] [address] 09/04/2024 11:00 AM CUTLET MAKER PORK Office Visit [facility] [address] [place] [address] Denise Woodson Ra, INDUSTRIAL PAINTER TALEND DEVELOPER [address] [place] [address] 09/18/2024 1:00 PM CUTLET MAKER PORK Office Visit [facility] [address] [place] [phone] Denise Woodson Ra, INDUSTRIAL PAINTER TALEND DEVELOPER [address] [place] [address] 09/29/2024 9:00 AM CUTLET MAKER PORK Virtual Visit [facility] Neurology [facility] [address] [facility] 3rd [place] [phone] Randy Maradiaga, [address] [place] [address] 10/09/2024 1:20 PM CUTLET MAKER PORK Office Visit [facility] Heart [facility] [address] [facility] [address] [place] [phone] Danna Cardenas PA-C 6405 [place], [place] 7[address] 10/30/2024 4:00 PM CUTLET MAKER PORK Virtual Visit [facility] Vascular [place] [address] [place] [phone] Lisa Zambrano MD [address] [place] [address] 12/29/2024 12:45 PM CDT Office Visit [facility] [address] [facility] [address],[place] [phone] Fabi Coates MD 420 [facility] 75 [place], [place] [address] 12/29/2024 1:45 PM CDT Office Visit [facility] [address] [facility] Explorer [facility] 12th Fl[address],[place] [phone] Fabi Coates MD 420 [facility] 75 [place] [address] 06/01/2025 11:15 AM CDT Appointment [facility] [address] [place] [phone] Robin Zepeda MD [address] [place] [address] 06/04/2025 11:00 AM CDT Office Visit [facility] Neurosurgery [address] 3rd [place] [phone] Robin Zepeda MD [address] [place] [address] Usha Simon APRN [address] [address] documented as of this encounter Goals Goal [...] Health weekly - PT, OT and DATA SECURITY CONSULTANT, continuing through [facility]: - Continue following up with PCP: 09/04/2024 - Vascular Dr. Zambrano 05/01/24 - follow up recommended in 6 months: 11/11/24 D #[phone]. - call independently - MTM 05/25/2024, completed - Neurosurgery Dr. Zepeda, following up with MEASUREMENT SPECIALIST: 06/04/2025 11:00 AM (Arrive by 10:45 [...] clinic with 24/ after hours services available. Pump Mechanic will remain available as needed. documented as of this encounter Visit Diagnoses Not on filedocumented in this encounter Additional Health Concerns Active Problems Noted Date Diagnosed Date Increased risk of re-admission 02/18/2024 Assessment Noted Time PHQ-9 Depression Total Score: 5 03/17/20 24 9:45 AM CDT documented as of this encounter Care Teams Ramp And Cargo Supervisor Relationship Specialty Start Date End Date Winston Villatoro, AMELIE [facility] [address] [facility] [address] [place] [address] PCP - Ophthalmology Ophthalmology 02/11/13 Denise Woodson Ra, APRN TALEND DEVELOPER [address] [place] [address] PCP - General Family Practice 09/21/20 Denise Woodson Ra, APRN CNP [address] [place] [address] Assigned PCP 07/17/20 Usha Simon APRN CNP 909 [facility]121[place], [place] [address] Nurse Practitioner Neurological Surgery 01/24/24 Dangelo Salinas MD [address] [place] [address] Neurology 01/27/24 Anastasia Stearns, RN Lead Pump Mechanic 02/06/24 Germaine Lopez, [facility] Community Health Worker Primary Care - CC 02/18/24 Lisa Zambrano MD [address] [place] [address] Assigned Heart and Vascular Provider 05/08/24 07/07/24 Raul Hoyos MD 909 [facility]121[place], [place] [address] Assigned Neuroscience Provider 05/08/24 07/07/24 documented as of this encounter
--- OUTSIDE RECORDS SUMMARY | 2024-07-16 13:55 | XMS_ITS | Encounter Summary ---
Author Organization [facility] Address [address] [place] [address] Care Team Providers Care Bundle Tier Name Role Phone ShaunaTarikle Se OD Unavailable [phone] Denise Woodson Ra, APRN AIRCRAFT RESTORER Unavailable + [phone] Denise Woodson Ra, APRN AIRCRAFT RESTORER Primary Care Provid er Usha Simon APRN AIRCRAFT RESTORER Unavailable + [phone] Dangelo Salinas MD Unavailable Anastasia Stearns RN Unavailable Germaine Lopez CHW Unavailable Lisa Zambrano MD Unavailable Raul Hoyos MD Unavailable Joya Liar [facility] Unavailable [phone] Joya Lira [facility] Unavailable [phone] Fabi Coates MD Unavailable [phone] Robin Zepeda MD Unavailable [phone] Danna Cardenas PA-C Unavailable [phone] Felicita Desai RN Unavailable Unavailab le Encounter Details Date Type Department Care Team (Late st Contact Info) Description 05/13/2024 [facility] Medical Advice [facility] Care Coordination [address] [place] [phone] Anastasia Stearns, RN Social History Tobacco Use [...] often do you attend roman catholic or hinduism serv ices? 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 file Not on file Not on file Not on file Not on file Not on file Not on file documented as of this encounter Plan of Treatment Upcoming Encounters Date Type Department Care Team (Late st Contact Info) Description 07/20/2024 12:00 PM MEDIA PROFESSIONAL Virtual Visit [facility] [address] [facility] [place] [address] Denise Woodson Ra, MACHINE CLOTHING REPLACER [facility] [address] [place] [address] 07/30/2024 8:30 AM MEDIA PROFESSIONAL Virtual Visit [facility] Neurology Clinic [address] [phone] Randy Maradiaga DO [address] [place] [address] 08/04/2024 12:00 PM MEDIA PROFESSIONAL Virtual Visit [facility] Mental Health and Addiction Clinic [address] [place] [address] [address] 08/04/2024 3:30 PM MEDIA PROFESSIONAL Virtual Visit [facility] [address] [place] [phone] Denise Woodson Ra, MACHINE CLOTHING REPLACER AIRCRAFT RESTORER [address] [place] [address] 08/07/2024 1:00 PM MEDIA PROFESSIONAL Appointment [facility] Heart Care [address] [facility] [address] [place] [phone] Danna Cardenas, PA-C 6405 [place], [place] [address] 08/10/2024 12:30 PM MEDIA PROFESSIONAL Virtual Visit [facility] Neuropsychology [address] [phone] Robin Zepeda MD [address] [place] [address] [address] 08/17/2024 12:30 PM MEDIA PROFESSIONAL Office Visit [facility] Neuropsychology [address] [phone] Robin Zepeda MD [address] [place] [address] [id number] [place] [address] Tulio Ogden, PhD [address] 669135 09/04/2024 11:00 AM MEDIA PROFESSIONAL Office Visit [facility] [address] [place] [phone] Denise Woodson Ra, MACHINE CLOTHING REPLACER AIRCRAFT RESTORER [address] [place], [place] [phone] 09/18/2024 1:00 PM MEDIA PROFESSIONAL Office Visit [facility] [address] [place] [phone] Denise Woodson Ra, MACHINE CLOTHING REPLACER AIRCRAFT RESTORER [address] [place], [place] 1839[address] 09/29/2024 9:00 AM MEDIA PROFESSIONAL Virtual Visit [facility] Neurology [address] [phone] Randy Maradiaga DO [address] [place] [address] 10/09/2024 1:20 PM MEDIA PROFESSIONAL Office Visit [facility] Heart [facility] 6[address] [facility] [address] [place] [phone] Danna Cardenas PA-C 3007 [place], [place] [address] 10/30/2024 4:00 PM MEDIA PROFESSIONAL Virtual Visit [facility] Vascular Clinic [place] [address] [place] [address] Lisa Zambrano MD [address] [place] [address] 12/29/2024 12:45 PM CDT Office Visit [facility] [address] [place] [address] Ave [address] [phone] Fabi Coates MD [address] 099[address] 12/29/2024 1:45 PM CDT Office Visit [facility] [address] [place] [address] Ave [address] [phone] Fabi Coates MD [address] [place] [address]47285 06/01/2025 11:15 AM CDT Appointment [facility] [place] [facility] [address] [facility] [address] [place] [phone] Robin Zepeda MD [address] [place] [address] 254735 06/04/2025 11:00 AM CDT Office Visit [facility] Neurosurgery [address] 3rd [place] [phone] Robin Zepeda MD [address] [place] [address] Usha Simon APRN [address] 048165 documented as of this encounter Goals Goal [...] Mental Health weekly - PT, OT and MIXER OPERATOR, continuing through [facility]: - Continue following up with PCP: 09/04/2024 - Vascular Dr. Zambrano 05/01/24 - follow up recommended in 6 months: 11/11/24 TBD #[phone]. - call independently - MTM 05/25/2024, completed - Neurosurgery Dr. Zepeda, following up with MEDIA OPERATOR: 06/04/2025 11:00 AM (Arrive by 10:45 AM) Usha Simon, MACHINE CLOTHING REPLACER AIRCRAFT RESTORER 2. I will take my medications as prescribed. 3. I will discuss, review, schedule and complete recommended overdue health maintenance with my Primary Care Provider. 4. I will contact my care team with questions, concerns, support needs. I will use the clinic as a resource and I understand I can contact my clinic with 24/7 after hours services available. Air Traffic Supervisor will remain available as needed. documented as of this encounter Visit Diagnoses Not on filedocumented in this encounter Additional Health Concerns Active Problems Noted Date Diagnosed Date Increased risk of re-admission 02/18/2024 Assessment Noted Time PHQ-9 Depression Total Score: 5 03/17/20 24 9:45 AM CDT documented as of this encounter Care Teams Bundle Tier Relationship Specialty Start Date End Date Winston Villatoro OD [facility] [place] [address] [place] [address] PCP - Ophthalmology Ophthalmology 02/11/13 Denise Woodson Ra, MACHINE CLOTHING REPLACER AIRCRAFT RESTORER [address] [address] [facility] [address] PCP - General Family Practice 09/21/20 Denise Woodson Ra MACHINE CLOTHING REPLACER AIRCRAFT RESTORER [address] [place] [address] Assigned PCP 07/17/20 Usha Simon APRN AIRCRAFT RESTORER [address] 220185 Nurse Practitioner Neurological Surgery 01/24/24 Dangelo Salinas MD [address] [place], [place] [phone] Neurology 01/27/24 Anastasia Stearns, RN Lead Air Traffic Supervisor 02/06/24 Germaine Lopez, W Community Health Worker Primary Care - CC 02/18/24 Lisa Zambrano MD [address] [facility] [address] [place] [address] Assigned Heart and Vascular Provider 05/08/24 07/07/24 Raul Hoyos MD [address] [id number] Assigned Neuroscience Provider 05/08/24 07/07/24 Joya Lira RPH [address] [place], [place] [phone] Pharmacist Pharmacist 05/25/24 Joya Lira [facility] [address] [place] [address] Assigned MTM Pharmacist 06/08/24 Fabi Coates MD [address] [place] [address] [facility] 75 [place] [address] Genetics, Clinical 06/18/24 Robin Zepeda MD 909 [facility] [id number] [place], [place] 254[address] Assigned Neuroscience Provider 07/08/24 Danna Cardenas PA-C [address]405 [place] [address] Assigned Heart and Vascular Provider 07/08/24 Felicita Desai, RN Lead Air Traffic Supervisor 07/14/24 documented as of this encounter
--- OUTSIDE RECORDS SUMMARY | 2024-07-16 13:55 | XMS_ITS | Encounter Summary ---
Author Organization [facility] Address [address] [place] [address]. [place] [address] Care Team Providers Care Larder Cook Name Role Phone Winston Villatoro OD Unavailable [phone] Denise Woodson Ra, APRN TRAM OPERATOR Unavailable + [phone] Denise Woodson Ra, APRN TRAM OPERATOR Primary Care Provid er Usha Simon APRN TRAM OPERATOR Unavailable Dangelo Salinas MD Unavailable Anastasia Stearns RN Unavailable Germaine Lopez CHW Unavailable [phone] Lisa Zambrano MD Unavailable [phone] Raul Hoyos MD Unavailable Reason for Visit * Reason Comments Headache Dizziness Balance/ Vestibular Neurologic Problem Encounter Details Date Type Department Care Team (Late st Contact Info) Description 05/10/2024 10:48 AM CDT - 05/11/2024 12:03 AM CDT Emergency [facility] Emergency Department [address] [place] [phone] Todd Osborn MD [address] [place] [address] Felicita Rae MD [address] [place] [address] Intractable headache, unspecified chronicity pattern, unspecified [...] How often do you attend taoist or christianity serv ices? 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 * Dizziness (Jordanian) documented in this encounter Medications at Time [...] 05/14/20 24 documented as of this encounter Consult Notes * Delisa Borges, - 05/10/2024 5:00 PM CDTAssociated Order(s): NEUROLOGY STROKE ADULT IP CONSULT Images from the original note were not included. [facility] Stroke Consult Note Reason for Consult: Suspected [...] 05/07. She went to the hospital in [place] at this point where she received an MRI that showed no acute intracranial abnormalities (was unable to locate these results in record, patient showed a result of imaging on her phone). The pain in the head is aburning and tingling that does not improve with tylenol or laying down. It felt better on Saturday morning in the [place] in the hospital, so she was discharged [...] on 05/01/2024 03/06/24 Denise Woodson Ra, APRN TRAM OPERATOR senna-docusate (SENOKOT-S/PERICOLACE) 8.6-50 MG tablet Take 2 [...] extinction on double simultaneous stimulation Coordination: normal vtzafp-de-eihj and qgme-ll-gvdn bilaterally without dysmetria Station/Gait: deferred Stroke Scales [...] Extinction and Inattention 0-->No abnormality Total 1 (05/10/241932) Imaging I personally reviewed all imaging; relevant [...] 1349 INR 0.92 0.94 0.90 Cosigned by Sameer Tracy MD at 05/11/2024 2:36 AM CDT Associated attestation - Sameer Tracy MD - [...] Also with difficulty ambulating. Was seen at [place] recently and had tele stroke consult. Discharged [...] Rate 66 BPM Atrial Rate 66 BPM AK Interval 162 ms QRS Duration 84 ms QT 378 ms QTc 396 ms P [place] 67 degrees R AXIS 84 degrees T [place] 34 degrees Interpretation ECG Sinus rhythm Possible Left atrial enlargement Borderline ECG Unconfirmed report - interpretation of this ECG is computer generated - see medical record for final interpretation Confirmed by - EMERGENCY ROOM, PHYSICIAN ([id number]), fashion editor MAILE STEINER ([id number]) on 05/10/2024 11:53:46 AM Glucose by meter Status: Normal Collection Time: 05/10/24 2:33 PM Result Value Ref Range GLUCOSE BY METER POCT 78 70 - 99 mg/dL CBC with Platelets & Differential Status: None Collection Time: 05/10/24 2:34 PM Narrative The following orders were created for panel order CBC with Platelets & Differential. Procedure Abnormality Status --------- ------ CBC with platelets and d...[[id number]] Final result Please view results for these [...] the vertex were obtained without intravenous contrast. Circular Knitter Helper (topogram) image(s) also obtained and reviewed. FINDINGS: [...] of the upper aortic arch through the [place]. This CT angiogram data was [...] 10:56 AM CDT ED Provider Note 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 Per chart review, presented for a planned catheter angiogram at [facility] for left sided pulsatile tinnitus [...] Patient reports that she did go to [facility] on night (05/07/2024) and had an [...] Past Surgical History: Procedure Laterality Date C FISHER SCALLOP PROCEDURE DATE: vag del. C FISHER SCALLOP PROCEDURE DATE: 2000 tubal ligation C FISHER SCALLOP PROCEDURE DATE: 1994 D&C CARDIAC SURGERY 06/2006 heart defect repair ESOPHAGOSCOPY, GASTROSCOPY, DUODENOSCOPY (EGD), COMBINED N/A 02/08/2021 Procedure: ESOPHAGOGASTRODUODENOSCOPY (EGD); Surgeon: Tuan Miller MD; Location: GI GI SURGERY 09/2020 gallbladder removed HC KNEE SCOPE,MED/LAT MENISECTOMY 08/04/13 LT HEART CATH, CLOSURE ATRIAL SEPTAL DEFECT 06/20/06 amplatzer septal occluder- serial #[id number] RW FISHER SCALLOP (ABSTRACTED) pneumonia several times SURGICAL PATHOLOGY EXAM [...] intact in b/l distal UEs and LEs. hand clerical verifier II-XII intact. Negative Romberg. Very slow, but steady gait. No ataxia. Psychiatric: Mood and Affect: Mood normal. Behavior: Behavior normal. Thought Content: Thought content normal. Judgment: Judgment normal. ED Course, Procedures, & Data Procedures EKG Interpretation: Interpreted by Todd Osborn MD Time reviewed: 11:29 AM Symptoms at time of EKG: Dizziness Rhythm: normal sinus Rate: normal [place]: normal Ectopy: none Conduction: normal ST Segments/ [...] of the upper aortic arch through the [place]. This CT angiogram data was [...] the vertex were obtained without intravenous contrast. Circular Knitter Helper (topogram) image(s) also obtained and reviewed. FINDINGS: [...] Rate 66 BPM Atrial Rate 66 BPM AK Interval 162 ms QRS Duration 84 ms QT 378 ms QTc 396 ms P [place] 67 degrees R AXIS 84 degrees T [place] 34 degrees Interpretation ECG Sinus rhythm Possible Left atrial enlargement Borderline ECG Unconfirmed report - interpretation of this ECG is computer generated - see medical record for final interpretation Confirmed by - EMERGENCY ROOM, PHYSICIAN ([id number]), fashion editor MAILE STEINER ([id number]) on 05/10/2024 11:53:46 AM CBC with Platelets & Differential Status: None Narrative The following orders were created for panel order CBC with Platelets & Differential. Procedure Abnormality Status --------- ------ CBC with platelets and d...[[id number]] Final result Please view results for these [...] head and neck, obtain MRI images from [facility], and consult stroke service.Will also obtain [...] medical record was transcribed by ANDREA POOLE Photogrammetric Stereo Compiler, from a dictation done by Todd Osborn MD. I have reviewed the nursing notes. I have reviewed the findings, diagnosis, plan and need for follow up with the patient. New Prescriptions No medications on file Final diagnoses: None Joya Dillon, am serving as a trained certified ophthalmic medical technician to document services personally performed by Todd Osborn MD, MD, based on the provider's statements to me. Irena Dillon Nikola, MD, MD, was physically present and have reviewed and verified the accuracy of this note documented by Joya Cannon. Todd Osborn MD [facility] EMERGENCY DEPARTMENT 05/10/2024 Todd Osborn MD 05/10/24 [id number] * Marii Foster RN - 05/10/2024 10:56 [...] st Contact Info) Description 07/20/2024 12:00 PM A R COLLECTIONS REP Virtual Visit [facility] [address] [place] [phone] Denise Woodson Ra, SAFETY SEALER TRAM OPERATOR [address] [place], [place] [phone] 07/30/2024 8:30 AM A R COLLECTIONS REP Virtual Visit [facility] Neurology [address] [phone] Randy Maradiaga, [address] [address] 08/04/2024 12:00 PM A R COLLECTIONS REP Virtual Visit [facility] Mental Health and Addiction [address] [place] [address] Arthur Salas, [address] [address] 08/04/2024 3:30 PM A R COLLECTIONS REP Virtual Visit [facility] [address] [place] [phone] Denise Woodson Ra, SAFETY SEALER TRAM OPERATOR [address] [place], [place] [phone] 08/07/2024 1:00 PM A R COLLECTIONS REP Appointment [facility] Heart Care [address] [facility] [address] [place] [phone] Danna Cardenas PA-C [address] [place] [address] 08/10/2024 12:30 PM A R COLLECTIONS REP Virtual Visit [facility] Neuropsychology [address] [phone] Robin Zepeda MD [address] [place] [phone] 08/17/2024 12:30 PM A R COLLECTIONS REP Office Visit [facility] Neuropsychology [address] [phone] Robin Zepeda MD [address] [place] [address] Tulio Ogden, PhD [address] [address] 09/04/2024 11:00 AM A R COLLECTIONS REP Office Visit [facility] [address] [place] [phone] Denise Woodson Ra, SAFETY SEALER TRAM OPERATOR [address] [place], [place] [phone] 09/18/2024 1:00 PM A R COLLECTIONS REP Office Visit [facility] [address] [place] [phone] Denise Woodson Ra, SAFETY SEALER TRAM OPERATOR [address] [place], [place] [phone] 09/29/2024 9:00 AM A R COLLECTIONS REP Virtual Visit [facility] Neurology [facility] [place] [address] [facility] 3rd [place] [phone] Randy Maradiaga, [address] [place] [address] 10/09/2024 1:20 PM A R COLLECTIONS REP Office Visit [facility] Heart [facility] [address] [facility] [address] [place] [phone] Danna Cardenas PA-C [address] [facility] [place], [place] [phone] 10/30/2024 4:00 PM A R COLLECTIONS REP Virtual Visit [facility] Vascular [facility] [place] [address] [place] [phone] Lisa Zambrano MD [address] [place] [address] 12/29/2024 12:45 PM CDT Office Visit [facility] [address] [place], [place] [address]e [facility] [address] [phone] Fabi Coates MD [address] [place] [phone] 12/29/2024 1:45 PM CDT Office Visit [facility] [address] [place], [place] [address] [address] [phone] Fabi Coates MD [address] [place] [address] 06/01/2025 11:15 AM CDT Appointment [facility] [address] [facility] [address] [place] [phone] Robin Zepeda MD [address] [place] [phone] 06/04/2025 11:00 AM CDT Office Visit [facility] Neurosurgery Clinic [address] 3rd [place] [phone] Robin Zepeda MD [address] [place] [address] Usha Simon APRN TRAM OPERATOR [address] [place] [phone] documented as of this encounter Goals Goal [...] Mental Health weekly - PT, OT and AGRONOMY ADVISOR, continuing through [facility] [place]: - Continue following up with PCP: 09/04/2024 - Vascular Dr. Zambrano 05/01/24 - follow up recommended in 6 months: 11/11/24 TBD #[phone]. - call independently - MTM 05/25/2024, completed - Neurosurgery Dr. Zepeda, following up with IT SYSTEMS MANAGER: 06/04/2025 11:00 AM (Arrive by 10:45 AM) Usha Simon APRN TRAM OPERATOR 2. I will take my medications as prescribed. 3. I will discuss, review, schedule and complete recommended overdue health maintenance with my Primary Care Provider. 4. I will contact my care team with questions, concerns, support needs. I will use the clinic as a resource and I understand I can contact my clinic with 24/7 after hours services available. Counseling Psychologist will remain available as needed. documented as [...] MR BRAIN W/O and W CONTRAST LOCATION: [facility] DATE: 05/10/2024 INDICATION: dizziness; Headache; Acute YANG [...] MR BRAIN W/O and W CONTRAST LOCATION: [facility] DATE: 05/10/2024 INDICATION: dizziness; Headache; Acute YANG [...] visualized. Felicita Rae MD IMG MRI ORDERABLES Final R esult * (ABNORMAL) Keppra (Levetiracetam) Level (05/10/2024 6:49 PM CDT) Keppra (Levetiracetam ) Level 7.6(L) 10.0 - 40.0 ??g/mL 05/10/2024 7:32 PM CDT U LABORATORY Blood BLOOD SPECIMEN / Unknown Venipuncture / Unknown 05/10/2024 6:49 PM CDT 05/10/2024 6:52 PM CDT Felicita Rae MD LAB - BLOOD ORDERABLES Fin al Result U LABORATORY [facility] [place] [facility] [address] [facility], [address] [place] [address] * CTA Head Neck with Contrast [...] of the upper aortic arch through the [place]. This CT angiogram data was [...] of the upper aortic arch through the [place]. This CT angiogram data was [...] MD Todd Osborn MD IM CT ORDERABLES Final Result * CT Head [...] the vertex were obtained without intravenous contrast. Circular Knitter Helper (topogram) image(s) also obtained and reviewed. FINDINGS: [...] the vertex were obtained without intravenous contrast. Circular Knitter Helper (topogram) image(s) also obtained and reviewed. FINDINGS: [...] findings. MAE NIETO MD Todd Osborn MD [facility] CT ORDERABLES Final Result * CBC with platelets and differential (05/10/2024 [...] BLOOD ORDERABLES Final Re sult [facility] LAB[facility] [place] [facility] [address] [facility], Room [address] [phone] * Troponin T, High Sensitivity (05/10/2024 2:34 PM CDT) [facility] Troponin T, High Sensitivity <6 [...] BLOOD ORDERABLES Final Re sult [facility] [place] [facility] [address] [facility], [address] * Partial thromboplastin time (05/10/2024 2:34 PM CDT) aPTT 25 22 - 38 Seconds 05/10/2024 2:54 PM CDT [facility] Blood STRUCTURE OF LEFT HAND / Unknown Venipuncture / Unknown 05/10/2024 2:34 PM CDT 05/10/2024 2:38 PM CDT Todd Osborn MD LAB - BLOOD ORDERABLES Final Re sult Performing Organization Address City/[facility]/ZIP Co de Phone Number U LABORATORY [facility] [place] [facility] [address] [facility], [address] * INR (05/10/2024 2:34 PM CDT) INR 0.92 0.85 - 1.15 05/10/2024 2:54 PM CDT [facility] Blood STRUCTURE OF LEFT HAND / Unknown Venipuncture / Unknown 05/10/2024 2:34 PM CDT 05/10/2024 2:38 PM CDT Todd Osborn MD LAB - BLOOD ORDERABLES Final Re sult [facility] LABORATORY [facility] [place] [facility] [address] [facility], [address] * Basic metabolic panel (05/10/2024 2:34 [...] BLOOD ORDERABLES Final Re sult [facility] [place] [facility] [address] [facility], [address] [phone] * Glucose by meter (05/10/2024 2:33 PM CDT) [facility] GLUCOSE BY METER POCT 78 70 - 99 mg/dL 05/10/2024 2:40 PM CDT [facility] POC Blood, Capillary BLOOD SPECIMEN / Unknown 05/10/2024 2:33 PM CDT 05/10/2024 2:40 PM CDT Todd Osborn MD LAB - BEAKER POCT Final Result [facility] POC [facility] [place] [facility] [address] [facility], [address] [place] [address] * EKG 12-lead, tracing only (05/10/2024 11:25 AM CDT) Systolic Blood Pressure mmHg RADIOLOGY RESULTS Diastolic Blood Pressure mmHg RADIOLOGY RESULTS Ventricular Rate 66 BPM RAD IOLOGY RESULTS Atrial Rate 66 BPM RADIOLOG Y RESULTS AK Interval 162 ms RADIOLOG Y RESULTS QRS Duration 84 ms RADIOLO GY RESULTS QT 378 ms RADIOLOGY RESULTS QTc 396 ms RADIOLOGY RESULTS P [place] 67 degrees RADIOLOGY RESULTS R AXIS 84 degrees RADIOLOGY RESULTS T [place] 34 degrees RADIOLOGY RESULTS Interpretation ECG Sinus rhythm Possible Left atrial enlargement Borderline ECG Unconfirmed report - interpretation of this ECG is computer generated - see medical record for final interpretation Confirmed by - EMERGENCY ROOM, PHYSICIAN ([id number]), fashion editor MAILE STEINER ([id number]) on 05/10/2024 11:53:46 AM RADIOLOGY RESULTS 05/10/2024 11:2 5 AM CDT 05/10/2024 11:53 AM CDT us Todd Osborn MD ECG ORDERABLES Edited Result - Final RADIOLOGY RESULTS documented in this encounter Visit [...] dose 1943 ($Given - [facility]: [facility] iopamidol (ISOVUE-370) solution 67 mL [...] documented as of this encounter Care Teams Larder Cook Relationship Specialty Start Date End Date Winston Villatoro OD [facility] [place] [address] [place] [address] PCP - Ophthalmology Ophthalmology 02/11/13 Denise Woodson Ra, SAFETY SEALER TRAM OPERATOR [address] [place] [address] PCP - General Family Practice 09/21/20 Denise Woodson Ra, SAFETY SEALER TRAM OPERATOR [address] [place], [place] [phone] Assigned PCP 07/17/20 Usha Simon SAFETY SEALER TRAM OPERATOR [address] [facility] [id number] [place], [place] [phone] Nurse Practitioner Neurological Surgery 01/24/24 Dangelo Salinas MD [address] [place] [address] Neurology 01/27/24 Anastasia Stearns, RN Lead Counseling Psychologist 02/06/24 Germaine Lopez, CHW Community Health Worker Primary Care - CC 02/18/24 Lisa Zambrano MD [address] [place] [address] Assigned Heart and Vascular Provider 05/08/24 07/07/24 Raul Hoyos MD [address] [facility] [id number] [address] Assigned Neuroscience Provider 05/08/24 07/07/24 documented as of this encounter
--- OUTSIDE RECORDS SUMMARY | 2024-07-16 13:55 | XMS_ITS | Encounter Summary ---
Author Organization [facility] Address [address] [place] [address] Care Team Providers Care Corporate Learning Consultant Name Role Phone ShaunaWinston OD Unavailable [phone] Denise Woodson Ra, APRN ASSISTANT ASSOCIATE FULL PROFESSOR Unavailable + [phone] Denise Woodson Ra, APRN ASSISTANT ASSOCIATE FULL PROFESSOR Primary Care Provid er Usha Simon APRN ASSISTANT ASSOCIATE FULL PROFESSOR Unavailable Dangelo Salinas MD Unavailable Anastasia Stearns RN Unavailable Germaine Lopez CHW Unavailable [phone] Lisa Zambrano MD Unavailable [phone] Raul Hoyos MD Unavailable Reason for Visit * Reason Onset Date Comments Forms 05/12/2024 [employer] - Disability Insurance Encounter Details Date Type Department Care Team (Late st Contact Info) Description 05/12/2024 [facility] Medical Advice [facility] [address] [place] [address] Denise Woodson Ra, APRN ASSISTANT ASSOCIATE FULL PROFESSOR [address] [place] [address] Forms ([employer] - [...] often do you attend roman catholic or catholic serv ices? Never 02/28/2024 Do [...] Answer Date Recorded PHQ-2 Score 2 05/05/2024 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 Qing Cardona Lead Com Writer [facility] Phoebe Velasquez * Telephone Encounter - Qing Copeland - 05/15/2024 6:53 AM CDT Routing to provider as FYI. Qing Copeland Lead Com Writer [facility] Phoebe Velasquez * Telephone Encounter - Aliya Díaz [...] form come from? form was sent via angelcam When is form/letter needed by: FIFI How would you like the form/letter returned: Finance Assistant Patient Notified form requests are processed in 5-7 business days:Yes Could we send this information to you in angelcam or would you prefer to receive a phone call?: Patient would prefer a phone call Okay to leave a detailed message?: Yes at Cell number on file: Telephone Information: * Telephone Encounter - Qing Copeland - 05/12/2024 5:09 PM CDT Received form. Placed in provider's basket for review and signature. Qing Copeland Lead Com Writer [facility] Phoebe Velasquez * Telephone Encounter - Qing Copeland - 05/12/2024 2:10 PM CDT Routing to provider as FYI. Will update when form is received. Qing Copeland Lead Com Writer [facility] documented in this encounter Plan of Treatment Upcoming Encounters Date Type Department Care Team (Late st Contact Info) Description 07/20/2024 12:00 PM SUPERVISOR LATHING [facility] [address] [place] [phone] Denise Woodson Ra, SENIOR SSIS DEVELOPER ASSISTANT ASSOCIATE FULL PROFESSOR [address] [place] [address] 07/30/2024 8:30 AM SUPERVISOR LATHING Virtual Visit [facility] Neurology [address]rd [place] [address] Randy Maradiaga, [address] [address] 08/04/2024 12:00 PM SUPERVISOR LATHING Virtual [facility] [address] [place] [address] [address] 08/04/2024 3:30 PM SUPERVISOR LATHING [facility] [address] [place] [phone] Denise Woodson Ra, SENIOR SSIS DEVELOPER ASSISTANT ASSOCIATE FULL PROFESSOR [address] [place] [address] 08/07/2024 1:00 PM SUPERVISOR LATHING Appointment [facility] Heart Care [address] [place] [address] [address] [place] [phone] Danna Cardenas PA-C [address] [place], [place] 7[address] 08/10/2024 12:30 PM SUPERVISOR LATHING Virtual Visit [facility] Neuropsychology [address] [phone] Robin Zepeda MD [address] [place] [address] 3[address] 08/17/2024 12:30 PM SUPERVISOR LATHING Office Visit [facility] Neuropsychology [address] [phone] Robin Zepeda MD [address] [place] [address] 763235 Tulio Ogden, PhD [address] [address] 09/04/2024 11:00 AM SUPERVISOR LATHING Office Visit [facility] [address] [place] [phone] Denise Woodson Ra, SENIOR SSIS DEVELOPER ASSISTANT ASSOCIATE FULL PROFESSOR [address] [place] [address] 09/18/2024 1:00 PM SUPERVISOR LATHING Office Visit [facility] [address] [place] [phone] Denise Woodson Ra, SENIOR SSIS DEVELOPER ASSISTANT ASSOCIATE FULL PROFESSOR [address] [place], [place] 36[address] 09/29/2024 9:00 AM SUPERVISOR LATHING Virtual Visit [facility] Neurology [address] [phone] Randy Maradiaga DO 909 [place], [place] [address] 10/09/2024 1:20 PM SUPERVISOR LATHING Office [facility] Heart [facility] [address] [facility] [address] [facility] [address] [place] [phone] Danna Cardenas PA-C 6405 [facility] [place], [place] [address]49395 10/30/2024 4:00 PM SUPERVISOR LATHING Virtual Visit [facility] Vascular [facility] [address] [place] [phone] Lisa Zambrano MD [address] [place] [address] 12/29/2024 12:45 PM CDT Office Visit [facility] [address] [place] [address] [phone] Fabi Coates MD [address] [place] [address] 574825 12/29/2024 1:45 PM CDT Office Visit [facility] [address] [place], [place] [address]e Explorer [address] [phone] Fabi Coates MD [address] [place] [address] 06/01/2025 11:15 AM CDT Appointment [facility] [address] [facility] [address] [place] [address] Robin Zepeda MD 909 [facility] UU1961EP [place], [place] [address] 06/04/2025 11:00 AM CDT Office [facility] Neurosurgery Clinic [address] 3rd [place] [phone] Robin Zepeda MD [address] [place] [address] 093245 Usha Simon APRN ASSISTANT ASSOCIATE FULL PROFESSOR [address] [place] [address] documented as of this encounter Goals Goal [...] Health weekly - PT, OT and COMMERCIAL FINANCE MANAGER, continuing through [facility] [place] [facility]: - Continue following up with PCP: 09/04/2024 - Vascular Dr. Zambrano 05/01/24 - follow up recommended in 6 months: 11/11/24 TBD #[phone]. - call independently - MTM 05/25/2024, completed - Neurosurgery Dr. Zepeda, following up with E LEARNING COORDINATOR: 06/04/2025 11:00 AM (Arrive by 10:45 AM) Usha Simon APRN ASSISTANT ASSOCIATE FULL PROFESSOR 2. I will take my medications as prescribed. 3. I will discuss, review, schedule and complete recommended overdue health maintenance with my Primary Care Provider. 4. I will contact my care team with questions, concerns, support needs. I will use the clinic as a resource and I understand I can contact my clinic with 24/ after hours services available. Bean Weigher will remain available as needed. documented as of this encounter Visit Diagnoses Not on filedocumented in this encounter Additional Health Concerns Active Problems Noted Date Diagnosed Date Increased risk of re-admission 02/18/2024 Assessment Noted Time PHQ-9 Depression Total Score: 5 03/17/20 24 9:45 AM CDT documented as of this encounter Care Teams Corporate Learning Consultant Relationship Specialty Start Date End Date Winston Villatoro OD [facility] [place] [address] [place] [address] PCP - Ophthalmology Ophthalmology 02/11/13 Denise Woodson Ra, APRN ASSISTANT ASSOCIATE FULL PROFESSOR [address] [place] [address] PCP - General Family Practice 09/21/20 Denise Woodson Ra, APRN ASSISTANT ASSOCIATE FULL PROFESSOR [address] [place] [address] Assigned PCP 07/17/20 Usha Simon APRN ASSISTANT ASSOCIATE FULL PROFESSOR 909 [facility], [place] 731295 Nurse Practitioner Neurological Surgery 01/24/24 Dangelo Salinas MD [address] [place] [address] Neurology 01/27/24 Anastasia Stearns, RN Lead Bean Weigher 02/06/24 Germaine Lopez, W Community Health Worker Primary Care - CC 02/18/24 Lisa Zambrano MD [address] [place] [id number] Assigned Heart and Vascular Provider 05/08/24 07/07/24 Raul Hoyos MD 909 [facility] [id number] [place] [address] Assigned Neuroscience Provider 05/08/24 07/07/24 documented as of this encounter
--- OUTSIDE RECORDS SUMMARY | 2024-07-16 13:55 | XMS_ITS | Encounter Summary ---
Author Organization [facility] Address [address] [place] [address] Care Team Providers Care Blocking Machine Operator Name Role Phone hSauna Winston Se OD Unavailable Denise Woodson Ra, APRN BOARD OF DIRECTORS Unavailable Denise Woodson Ra, APRN BOARD OF DIRECTORS Primary Care Provid er Usha Simon APRN BOARD OF DIRECTORS Unavailable [phone] Dangelo Salinas MD Unavailable Anastasia Stearns RN Unavailable [phone] Germaine Lopez CHW Unavailable [phone] Robin Zepeda MD Unavailable Lisa Zambrano MD Unavailable [phone] Raul Hoyos MD Unavailable Encounter Details Date Type Department Care Team (Late st Contact Info) Description 05/06/2024 [facility] Medical Advice [facility] [address], [address] [place] [address] Rohit Barcenas MD [address] [place] [address] 295 [place], [place] 1687[address] Social History Tobacco Use Types Packs/Day Years [...] How often do you attend anglican or bahai serv ices? 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 Not on file [...] st Contact Info) Description 07/20/2024 12:00 PM MANAGER APPLE [facility] [address] [place] [phone] Denise Woodson Ra, NATURAL RESOURCES EXTENSION EDUCATOR BOARD OF DIRECTORS [address] [place] [address] 07/30/2024 8:30 AM MANAGER APPLE Virtual Visit [facility] Neurology Clinic [employer] [address] [phone] Randy Maradiaga, [address] [place] [address] 08/04/2024 12:00 PM MANAGER APPLE Virtual Visit [facility] Addiction [facility] [address] [place] [address] Arthur Salas, [address] [address] 08/04/2024 3:30 PM MANAGER APPLE [facility] [address] [place] [phone] Denise Woodson Ra, NATURAL RESOURCES EXTENSION EDUCATOR BOARD OF DIRECTORS [address] [place] [address] 08/07/2024 1:00 PM MANAGER APPLE Appointment [facility] Heart Care [facility] [address] [place] [phone] Danna Cardenas PA-C 6405 [place], [place] 721225 08/10/2024 12:30 PM MANAGER APPLE Virtual Visit [facility] Neuropsychology [employer] [address] [place] [address] 3rd [place] [phone] Robin Zepeda MD [address] [address] 08/17/2024 12:30 PM MANAGER APPLE Office Visit [facility] Neuropsychology [address] [phone] Robin Zepeda MD [address] [place] [address] Tulio Ogden, PhD [address] [address] 09/04/2024 11:00 AM MANAGER APPLE Office Visit [facility] [address] [place] [phone] Denise Woodson Ra, NATURAL RESOURCES EXTENSION EDUCATOR BOARD OF DIRECTORS [address] [place] [address] 09/18/2024 1:00 PM MANAGER APPLE Office Visit [facility] [address] [place] [phone] Denise Woodson Ra, NATURAL RESOURCES EXTENSION EDUCATOR BOARD OF DIRECTORS [address] [place] [address] 09/29/2024 9:00 AM MANAGER APPLE Virtual Visit [facility] Neurology Clinic [address] [phone] Randy Maradiaga, [address] [place] [address] 10/09/2024 1:20 PM MANAGER APPLE Office Visit [facility] Heart [facility] 6405 [facility] [address] [place] [address] Danna Cardenas PA-C 6405 [place] [address] 10/30/2024 4:00 PM MANAGER APPLE Virtual Visit [facility] Vascular Clinic [place] [address] [place] [address] Lisa Zambrano MD [address] [place] [id number] 12/29/2024 12:45 PM CDT Office Visit [facility] [address] [place] [address] Ave [address] [phone] Fabi Coates MD [address] [place] [address] 249775 12/29/2024 1:45 PM CDT Office Visit [facility] [address] [place] [address] Ave [address] [phone] Fabi Coates MD [address] [place] [address] 06/01/2025 11:15 AM CDT Appointment [facility] [address] [facility] [address] [place] [address] Robin Zepeda MD [address] [place] [address] 06/04/2025 11:00 AM CDT Office Visit [facility] Neurosurgery [address] 3rd [place] [phone] Robin Zepeda MD [address] [place] [address] Usha Simon APRN BOARD OF DIRECTORS 909 [facility] [id number] [place] [address] documented as of this encounter Goals Goal [...] Mental Health weekly - PT, OT and TANK RIVETER, continuing through [facility] [place]: - Continue following up with PCP: 09/04/2024 - Vascular Dr. Zambrano 05/01/24 - follow up recommended in 6 months: 11/11/24 TBD #[phone]. - call independently - MTM 05/25/2024, completed - Neurosurgery Dr. Zepeda, following up with SUPPLIER QUALITY ENGINEERING MANAGER: 06/04/2025 11:00 AM (Arrive by 10:45 AM) Usha Simon APRN BOARD OF DIRECTORS 2. I will take my medications as prescribed. 3. I will discuss, review, schedule and complete recommended overdue health maintenance with my Primary Care Provider. 4. I will contact my care team with questions, concerns, support needs. I will use the clinic as a resource and I understand I can contact my clinic with 24/7 after hours services available. Foundry Helper will remain available as needed. documented as of this encounter Visit Diagnoses Not on filedocumented in this encounter Additional Health Concerns Active Problems Noted Date Diagnosed Date Increased risk of re-admission 02/18/2024 Assessment Noted Time PHQ-9 Depression Total Score: 5 03/17/20 24 9:45 AM CDT documented as of this encounter Care Teams Blocking Machine Operator Relationship Specialty Start Date End Date Winston Villatoro OD [facility] [address] [place] [address] PCP - Ophthalmology Ophthalmology 02/11/13 Denise Woodson Ra, NATURAL RESOURCES EXTENSION EDUCATOR BOARD OF DIRECTORS [address] [place] [address] PCP - General Family Practice 09/21/20 Denise Woodson Ra, NATURAL RESOURCES EXTENSION EDUCATOR BOARD OF DIRECTORS [address] [place] [address] Assigned PCP 07/17/20 Usha Simon APRN BOARD OF DIRECTORS [address] 234[address] Nurse Practitioner Neurological Surgery 01/24/24 Dangelo Salinas MD [address] [place] [address] Neurology 01/27/24 Anastasia Stearns, RN Lead Foundry Helper 02/06/24 Germaine Lopez, W Community Health Worker Primary Care - CC 02/18/24 Robin Zepeda MD [address] [address] Assigned Neuroscience Provider 03/08/24 05/07/24 Lisa Zambrano MD [address] [place] [address] Assigned Heart and Vascular Provider 05/08/24 07/07/24 Raul Hoyos MD 909 [facility] [id number] [place] [address] Assigned Neuroscience Provider 05/08/24 07/07/24 documented as of this encounter
--- OUTSIDE RECORDS SUMMARY | 2024-07-16 13:56 | XMS_ITS | Encounter Summary ---
Author Organization [facility] Address [address] [place] [address] Care Team Providers Care Tube Building Machine Operator Name Role Phone ShaunaWinston OD Unavailable [phone] Denise Woodson Ra, APRN LONGITUDINAL FLOAT OPERATOR Unavailable [phone] Denise Woodson Ra, APRN LONGITUDINAL FLOAT OPERATOR Primary Care Provid er Usha Simon APRN LONGITUDINAL FLOAT OPERATOR Unavailable [phone] Dangelo Salinas MD Unavailable Anastasia Stearns RN Unavailable [phone] Germaine Lopez CHW Unavailable [phone] Robin Zepeda MD Unavailable [phone] Encounter Details Date Type Department Care Team [...] How often do you attend baptism or religion serv ices? 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 Not on file Not on file Not on file Not on file Not on file Not on file documented as of this encounter Plan of Treatment Upcoming Encounters Date Type Department Care Team (Late st Contact Info) Description 07/20/2024 12:00 PM RECRUITER Virtual Visit [facility] [address] [place] [phone] Denise Woodson Ra, MANAGER ARCHITECTURAL [facility] [address] [place], [place] [phone] 07/30/2024 8:30 AM RECRUITER Virtual Visit [facility] Neurology Clinic [address] 3rd [place] [phone] Randy Maradiaga, [address] [address] 08/04/2024 12:00 PM RECRUITER Virtual Visit [facility] Mental Health and Addiction Clinic [address] [place] [address] Arthur Salas, [address] [address] 08/04/2024 3:30 PM RECRUITER Virtual Visit [facility] [address] [place] [phone] Denise Woodson Ra, MANAGER ARCHITECTURAL LONGITUDINAL FLOAT OPERATOR [address] [facility] [place], [place] 5679068 08/07/2024 1:00 PM RECRUITER Appointment M [facility] Heart Care [address] [facility] [address] [place] [phone] Danna Cardenas PA-C 6405 [place], [place] 961775 08/10/2024 12:30 PM RECRUITER Virtual Visit [facility] Neuropsychology [address] [phone] Robin Zepeda MD [address] [place] [address] 08/17/2024 12:30 PM RECRUITER Office Visit [facility] Neuropsychology [address] [phone] Robin Zepeda MD [address] [place] [address] Tulio Ogden, PhD [address] [address] 09/04/2024 11:00 AM RECRUITER Office Visit [facility] [address] [place] [phone] Denise Woodson Ra, MANAGER ARCHITECTURAL LONGITUDINAL FLOAT OPERATOR [address] [place], [place] 3000768 09/18/2024 1:00 PM RECRUITER [facility] [address] [place] [phone] Denise Woodson Ra, MANAGER ARCHITECTURAL LONGITUDINAL FLOAT OPERATOR [address] [place], [place] 2681668 09/29/2024 9:00 AM RECRUITER Virtual Visit [facility] Neurology [address] 3rd [place] [address] Randy Maradiaga, [address] [address] 10/09/2024 1:20 PM RECRUITER Office Visit [facility] Heart [place] 776435 [facility] [address] [place] [phone] Danna Cardenas PA-C 6405 [place] [address] 10/30/2024 4:00 PM RECRUITER Virtual Visit [facility] Vascular [place] [address] [place] [address] Lisa Zambrano MD [address] [place], [place] 4245[address] 12/29/2024 12:45 PM CDT Office Visit [facility]ty [facility]0 [facility] Explorer [facility] 12th [address]r,[place] [phone] Fabi Coates MD 420 [facility] 75 [place], [place] 9[address]245 12/29/2024 1:45 PM CDT Office Visit [facility] 2450 [facility] Explorer Clinic [address]th Fl[address],[place] [address] Fabi Coates MD [address] [place] [address] [facility] 75 [place] [address] 06/01/2025 11:15 AM CDT Appointment M [facility] Imaging [address] [place] [place] [phone] Robin Zepeda MD [address] [place] [address]22305 06/04/2025 11:00 AM CDT Office Visit [facility] Neurosurgery Clinic [place] 909 [facility] 3rd [place] [address] Robin Zepeda MD [address] [place] [address] 894055 Usha Simon APRN LONGITUDINAL FLOAT OPERATOR [address] 091325 documented as of this encounter Goals Goal [...] Mental Health weekly - PT, OT and CHILD WELFARE SPECIALIST, continuing through [facility] [place]: - Continue following up with PCP: 09/04/2024 - Vascular Dr. Zambrano 05/01/24 - follow up recommended in 6 months: 11/11/24 TBD #[phone]. - call independently - MTM 05/25/2024, completed - Neurosurgery Dr. Zepeda, following up with RING CUTTER LATHE OPERATOR: 06/04/2025 11:00 AM (Arrive by 10:45 [...] clinic with / after hours services available. Wall Cleaner will remain available as needed. documented as of this encounter Visit Diagnoses Not on filedocumented in this encounter Additional Health Concerns Active Problems Noted Date Diagnosed Date Increased risk of re-admission 02/18/2024 Assessment Noted Time PHQ-9 Depression Total Score: 5 03/17/20 24 9:45 AM CDT documented as of this encounter Care Teams Tube Building Machine Operator Relationship Specialty Start Date End Date Winston Villatoro, [facility] [place] [address] [place] [address] PCP - Ophthalmology Ophthalmology 02/11/13 Denise Woodson Ra, APRN CNP [address] [place] [address] PCP - General Family Practice 09/21/20 Denise Woodson Ra, APRN CNP [address] [place] [address] Assigned PCP 07/17/20 Usha Simon APRN CNP 909 [facility] [id number] [place] [address] Nurse Practitioner Neurological Surgery 01/24/24 Dangelo Salinas MD [address] [place] [address] Neurology 01/27/24 Anastasia Stearns, RN Lead Wall Cleaner 02/06/24 Germaine Lopez, W Community Health Worker Primary Care - CC 02/18/24 Robin Zepeda MD 909 [facility] [id number] [place] [address] Assigned Neuroscience Provider 03/08/24 05/07/24 documented as of this encounter
--- OUTSIDE RECORDS SUMMARY | 2024-07-16 13:56 | XMS_ITS | Encounter Summary ---
Author Organization [facility] Address [address] [place] [address] Care Team Providers Care Guardian Family Member Name Role Phone Winston Villatoro OD Unavailable [phone] Denise Woodson Ra, APRN QUARTZ CUTTER Unavailable + [phone] Denise Woodson Ra, APRN QU[employer] C[employer]TER Primary Care Provid er Usha Simon APRN QUARTZ CUTTER Unavailable + [phone] Dangelo Salinas MD Unavailable Anastasia Stearns RN Unavailable [phone] Germaine Lopez CHW Unavailable [phone] Robin Zepeda MD Unavailable Lisa Zambrano MD Unavailable + [phone] Raul Hoyos MD Unavailable Joya Lira [facility] Unavailable [phone] Joya Lira [facility] Unavailable [phone] Fabi Coates MD Unavailable [phone] Reason for Visit * Rehab Therapy Integrated Services (Routine) - Authorized Specialty Diagnoses / Procedures Referred By Contac t Referred To Contact Diagnoses Cerebrovascular accident (CVA), unspecified mechanism (H) [address] [address] Phone: tel: Referral ID Status Reason Start Date Expiration Date V isits Requested Visits Authorized [id number] Authorized 09/16/2023 09/15/2024 365 365 Encounter Details Date Type Department Care Team (Late st Contact Info) Description 04/15/2024 8:45 AM CDT Therapy Visit [facility] [address] [place] [phone] Denise Woodson Ra, LAMINATING MACHINE OFFBEARER [employer]TER [address] [place] [address] Isabel Beaulieu, OTR [facility] [address] [place] [address] Cerebrovascular accident (CVA), unspecified mechanism (H) (Primary [...] How often do you attend orthodoxy or bahai serv ices? 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 Patient has failed to schedule further appointments. Equipment Issued: [employer] Discharge Plan: Patient to continue home program. She is welcome to return to OP OT in the future, as needed, with new referral from her provider. Referring Provider: Danya You 04/15/24 0500 Appointment Info Treating Provider Isabel Beaulieu, OTR/L Visits Used 8 Medical Diagnosis Cerebrovascular accident (CVA), unspecified mechanism [...] 04/28/24 Goals OT Goals 1;2;3;4;5;6 OT Goal 4 Goal Identifier Memory/Safety Goal [...] medication or financial mgmt Goal Progress Goal met. Pt educated in memory compensatory strategies, including lifestyle factors (physical and cognitive exercise, diet, vision/hearing, sleep, socialization, mental health) as wellas specific strategies (attention, association, chunking/clustering, visualization, language-based strategies, repetition/rehearsal, organization, and external aids). Initiated cognitive HEP with speed card game and decoding tasks. Pt with 100% recall of game setup and game play with teach back method. Progressed with 13 card trick with pt able to recall with 100% with delay in session. Had planned to further progress goal area prn but pt failed to schedule/attend further appointments. Target Date 04/28/24 Date Met 04/15/24 OT Goal 5 Goal Identifier Problem-Solving/Schedule Management Goal Description Pt will demonstrate the ability to complete moderate to complex problem-solving/planning tasks (WCPA, Errands, Candy Shop, SET, etc.) with 90% accuracy to complete home and work tasks safely and accurately (e.g. meal preparation, sales agent financial report service, medication management, driving, work). Rationale In order to maximize safety and independence with performance of self- care activities;In order to maximize safety and independence with ADL/IADLs;In order to maximize safety and independence with cognitive function within the home or community;In order to maximize independence with tasks requiring functional cognition/executive function for school, work, medication or financial mgmt Goal Progress Goal met. Administered Candy Shop part 1 activity with pt 100% accurate with alphabetizing, calculating individual quantities, and calculating total quantity. Administered WCPA level IIversion A with pt having entered 17/17 tasks with no errors made this date. Pt was able to follow 5/5 rules. Pt scored in >95th percentile or above average for accuracy with efficiency score of 86. 0. Total time= 24 min 22 sec Accuracy= 17 Efficiency score (time in seconds/weighted accuracy score)= 86 (30-40th percentile range or average range). Additionally, educated in problem-solving and attention to detail compensatory strategies (highlight/underline, brain breaks, categorize, etc) as well as goal/plan/do/check metacognitive strategy. Also administered alternating attention cognitive task in session with pt demonstrating 100% accuracy with most items (see below). Had planned to further progress in future sessions, but pt failed to schedule/attend further appointments. Target Date 04/28/24 Date Met 04/15/24 OT Goal 6 Goal Identifier UE HEP Goal Description Pt will demonstrate independent completion of HEP for UE strength/coordination to promote independence with ADLs/IADLs (e.g. retrieving object from cabinet or refrigerator, opening packages/containers, transporting objects). Rationale In order to maximize safety and independence with performance of self- care activities;In order to maximize safety and independence with ADL/IADLs Goal Progress Goal met. Educated in AAROM stretches in doorway for shoulder flexion and for combined shoulder flexion and external rotation. Trained in UE strengthening HEP using green resistance band with pt demonstrating understanding and adherence to HEP between sessions. Had planned to further a ssess needs and progress prn in future sessions but pt failed to schedule/attend additional appointments. Target Date 04/28/24 Date Met 04/15/24 Subjective Report Subjective Report Alcon reports that she did request neurology to put an order in for more strengthening for RUE and RLE within her town as it is a difficult drive for her to get to the clinic. She hasn't completed her theraband in a couple days as work has been kicking my butt. She continues with RUE ROM exercises but RUE remains feeling tight. Reports that going back to work feels that it has cause a min regression in symptoms specifically has noticed some foot drop with R foot when fatigued. Regarding work, she is increasing from 16 hours to 25 hours per week for financial reasons. Sheis having more memory issues and slower processing but she is taking notes and helping herself along. Work takes all of my energy; I'm either working or laying down. Does try to walk each day and get in stretching/strengthening but the fatigue makes it difficult. Overall, she reports frustration with the specialization of all her care providers and feels she isn't getting all her questions answered. Objective Measures Objective Measures Objective Measure 1;Objective Measure 2;Objective Measure 3;Objective Measure 4 Objective Measure 1 Objective Measure Dynavision Details [...] 21.7 sec and L hand: 22.9 sec Objective Measure 4 Objective Measure MMT of BUEs Details As of 03/26/24 - With MMT of BUEs, including shoulder flexion/extension, should abduction/adduction, external/internal rotation, and elbow and wrist flexion/extension, pt with approximately 4/5 strength in R shoulder flexion and abduction and 4+/5 strength R shoulder external rotation. 5/5 strength in other areas tested in BUEs. Endorses increased effort with RUE, min discomfort in region of R pectoral muscle, and sensation feeling off with OTR's touch on RUE compared to LUE. Treatment Interventions (OT) Interventions Self Care/Home Management;Therapeutic Activity;Cognitive Skills;Therapeutic Procedure/Exercise Self Care/Home Management Self-Care/Home Mgmt/ADL, Compensatory, Meal Prep Minutes (96613) 25 Minutes Self Care 1 Fatigue and symptom management Self Care 1 - Details Regarding pt's increase in fatigue, educated in fatigue management strategieswith focus on plan, prioritize, and pace principles with application to ADLs/IADLs and work-based activities. Emphasized importance of planning days and setting boundaries/expectations to promote success for herself and when with other people. Educated in concept of invisible illness or invisible disability and provided TEDTalk resource to help educate family/friends, as needed. Regarding pt's questions about her prognosis and recovery process, educated in concepts of stroke recovery with explanation of central vs peripheral nervous system, motor learning theory with emphasis on repetition/practice to promote neuroplasticity, and anticipated time to recover from stroke (novathon not a sprint). Educated in role of HEP and fatigue in promoting versus slowing recovery, as well as impact of fatigue on cognitive proceses, with emphasis on previously covered fatigue management principles. Skilled Intervention Skilled education in fatigue and symptom management to promote IND with ADLs/IADLs Patient Response/Progress Thank you so much for listening - reports improed understanding and hasno further questions/concerns at this time. Goals 4-5 progressing Cognitive Skills Cognitive Skills Intervention 1st 15 Minutes Timed (05952) 15 Cognitive Skills Intervention Addl Minutes (58520) 5 Cognitive Skills Intervention 1 Memory, abstract and deductive reasoning, numerical reasoning, divided attention Cognitive Skills Intervention 1 - Details To promote sequential and short-term memory skills, trained in 13 card trick as therapeutic tool with pt having to learn and recall multi-step card trick andteach back to OTR. OTR provided demonstration then pt able to teach back with min VCs. Then facilitated distraction activity with pt tasked with alternating attention problem-solving tasks with pt alternating attention on 2-minute intervals per time management provided by OTR. Pt first focusing on abstract reasoning/complex directions and secondly on Sudoku numerical reasoning puzzle. In about 8 mins, pt able to complete abstract reasoning form #1 (90% accuracy), about 50% of complex direction following (100% accuracy), and 1 entry on Sudoku puzzle (100% accuracy). Folllowing distraction task, facilitated delayed recall of 13 card trick for sequential memory with pt able to recall with 100%accuracy and no cueing. Issued HEP handout for carryover to home. Skilled Intervention Skilled facilitation of divided attention, problem-solving, and memory tasks to promote skills for higher level ADLs/IADLs and work-based tasks Patient Response/Progress Alcon reports intitial repeat of 13 card trick is very challenging for her to recall each step and endorses significant improvement in ease of completion on second attempt. Goals 4-5 progressing. Education Learner/Method Patient;Listening;Reading;Pictures/Video;No Barriers to Learning Education Comments see tx details above Plan Home program ECWS (burners + basics). Mem ed/strategies + HEP (speed, decoding, 13 card trick). Sensory and thermoregulation re-ed/compensatory strategies. Problem-solving ([employer], WCPA, SET2, divided attention activity). UE: green theraband Updates to plan of care discharged due to failing to schedule/attend further appointments Plan for next session Invisible illness TEDtalk? *f/u 25 hour work weeks, green theraband exercisesoutside of work. *teach back 13 card trick. UE: add CVCs when ready for endurance. Cont. higher level IADL skills (reports still wants some of this): WCPA (try level III, level II version A completed03/17), Candy Shop part 2 Total Session Time Timed Code Treatment Minutes 45 Total Treatment Time (sum of timed and untimed services) 45 Thank you for the referral of this patient. If you have any questions regarding the information in this report, please feel free to contact me per the information provided below. Isabel Beaulieu MA, OTR/L Occupational Therapist [address] [address] Clinic Clinic documented in this encounter Plan of Treatment Upcoming Encounters Date Type Department Care Team (Late st Contact Info) Description 07/20/2024 12:00 PM SUPERINTENDENT PRODUCTION Virtual Visit [facility] [id number] [place] [phone] Denise Woodson Ra, LAMINATING MACHINE OFFBEARER [facility] [address] [place] [address] 07/30/2024 8:30 AM SUPERINTENDENT PRODUCTION Virtual Visit [facility] Neurology [address] 3rd [place] [phone] Randy Maradiaga, [address] [id number] 08/04/2024 12:00 PM SUPERINTENDENT PRODUCTION Virtual Visit [facility] Mental Health and Addiction [address] [place] [phone] Arthur Salas, [address] [place] [address] 08/04/2024 3:30 PM SUPERINTENDENT PRODUCTION Virtual Visit [facility] [address] [place] [phone] Denise Woodson Ra, LAMINATING MACHINE OFFBEARER [employer]TER [address] [place], [place] [phone] 08/07/2024 1:00 PM SUPERINTENDENT PRODUCTION Appointment [facility] Heart Care [address] [facility] [address] [place] [phone] Danna Cardenas PA-C [address] [place] [address] 08/10/2024 12:30 PM SUPERINTENDENT PRODUCTION Virtual Visit [facility] Neuropsychology [address] [phone] Robin Zepeda MD [address] [place] [id number] 08/17/2024 12:30 PM SUPERINTENDENT PRODUCTION Office Visit [facility] Neuropsychology [address] [phone] Robin Zepeda MD [address] [place] [address] Tulio Ogden, PhD [address] [address] 09/04/2024 11:00 AM SUPERINTENDENT PRODUCTION Office Visit [facility] [address] [place] [phone] Denise Woodson Ra, LAMINATING MACHINE OFFBEARER QUART[employer] CUTTER [address] [place] [address] 09/18/2024 1:00 PM SUPERINTENDENT PRODUCTION Office Visit [facility] [address] [place] [phone] Denise Woodson , LAMINATING MACHINE OFFBEARER [employer] CUTTER [address] [place] [address] 09/29/2024 9:00 AM SUPERINTENDENT PRODUCTION Virtual Visit [facility] Neurology [address] 3rd [place] [phone] Randy Maradiaga, [address] [address] 10/09/2024 1:20 PM SUPERINTENDENT PRODUCTION Office Visit [facility] Heart [facility] [address] [facility] [address] [place] [phone] Danna Cardenas PA-C [address] [place], [place] [address] 10/30/2024 4:00 PM SUPERINTENDENT PRODUCTION Virtual Visit [facility] Vascular [facility] [address] [place] [phone] Lisa Zambrano MD [address] [place], [place] [address] 12/29/2024 12:45 PM CDT Office Visit [facility] [address] [facility] Explorer [facility] [address],[place] [phone] Fabi Coates MD [address] [employer] [address] [place], [place] [address] 12/29/2024 1:45 PM CDT Office Visit [facility] [address] [facility] Explorer [facility] [address] [phone] Fabi Coates MD [address] [employer] [address] [place] [address] 06/01/2025 11:15 AM CDT Appointment [facility] Imaging [address] [place] [phone] Robin Zepeda MD [address] [place] [id number] 06/04/2025 11:00 AM CDT Office Visit [facility] Neurosurgery [address] 3rd [place] [phone] Robin Zepeda MD [address] [place] [address] Usha Simon APRN [address] [address] documented as of this encounter Goals Goal [...] Health weekly - PT, OT and PUBLIC RELATIONS STUDIES DIRECTOR, continuing through [facility]: - Continue following up with PCP: 09/04/2024 - Vascular Dr. Zambrano 05/01/24 - follow up recommended in 6 months: 11/11/24 D #[phone]. - call independently - MTM 05/25/2024, completed - Neurosurgery Dr. Zepeda, following up with PYROMETALLURGICAL ENGINEER: 06/04/2025 11:00 AM (Arrive by 10:45 [...] clinic with 08/04 after hours services available. Machine Former will remain available as needed. documented as of this encounter Visit Diagnoses Diagnosis Cerebrovascular accident (CVA), unspecified mechanism (H)- Primary documented in this encounter Additional Health Concerns Active Problems Noted Date Diagnosed Date Increased risk of re-admission 02/18/2024 Assessment Noted Time PHQ-9 Depression Total Score: 5 03/17/20 24 9:45 AM CDT documented as of this encounter Care Teams Guardian Family Member Relationship Specialty Start Date End Date Winston Villatoro, AMELIE [facility] [address] [facility] [address] [place] [address] PCP - Ophthalmology Ophthalmology 02/11/13 Denise Woodson Ra, APRN QUARTZ CUTTER [address] [place] [address] PCP - General Family Practice 09/21/20 Denise Wodoson Ra, APRN QUARTZ CUTTER [address] [place] [address] Assigned PCP 07/17/20 Usha Simon APRN QUARTZ CUTTER [address] [place] [address] [address] Nurse Practitioner Neurological Surgery 01/24/24 Dangelo Salinas MD [address] [place], [place] [phone] Neurology 01/27/24 Anastasia Stearns, RN Lead Machine Former 02/06/24 Germaine Lopez, W Community Health Worker Primary Care - CC 02/18/24 Robin Zepeda MD [address] [place] [address] Assigned Neuroscience Provider 03/08/24 05/07/24 Lisa Zambrano MD [address] [facility] [address] [place] [address] Assigned Heart and Vascular Provider 05/08/24 07/07/24 Raul Hoyos MD [address] [place] [address] Assigned Neuroscience Provider 05/08/24 07/07/24 Joya Lira Joleen [address] [place] [address] Pharmacist Pharmacist 05/25/24 Joya Lira RPH [address] [place] [address] Assigned MTM Pharmacist 06/08/24 Fabi Coates MD [address] [place] [address] [address] [place] [address] Genetics, Clinical 06/18/24 documented as of this encounter
--- OUTSIDE RECORDS SUMMARY | 2024-07-16 13:56 | XMS_ITS | Encounter Summary ---
Author Organization [facility] Address [address] [place] [address] Care Team Providers Care Handle Sander Operator Name Role Phone ShaunaWinston OD Unavailable [phone] Denise Woodson Ra, APRN JOB COACHING Unavailable [phone]- [phone] Denise Woodson Ra SPOT MACHINE OPERATOR JOB COACHING Primary Care Provid er Usha Simon APRN JOB COACHING Unavailable [phone] Dangelo Salinas MD Unavailable Anastasia Stearns RN Unavailable [phone] Germaine Lopez CHW Unavailable [phone] Robin Zepeda MD Unavailable [phone] Reason for Visit * Reason Comments New Patient * Consultation (Urgent: 3-5 Days) - Pending Review Specialty Diagnoses / Procedures Referred By Nila shah Referred To Contact Diagnoses Fibromuscular dysplasia (H) Cerebrovascular accident (CVA), unspecified mechanism (H) Denise Woodson Ra, APRN JOB COACHING [address] [place] [address] Phone: tel: fax: Referral ID Status Reason Start Date Expiration Date V isits Requested Visits Authorized [id number] Pending Review 02/06/2024 02/05/2025 1 1 Encounter Details Date Type Department Care Team (Late st Contact Info) Description 05/05/2024 2:30 PM CDT Office Visit Se [facility] [address], [address] [place] [phone] Rohit Barcenas MD [address] [facility] [address] [place] [address] 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 Rapid alternating movements, and mcbvnm-hvft-gutwry and heel-mast maneuvers were performed normally bilaterally. [...] denied having suicidal ideation recently. I reviewed [place] regulations on seizures and driving with the patient. She appeared to clearly understand that she is prohibited from operating a motor vehicle within 3 months following any seizure or other episode with sudden unconsciousness or inability to sit up, and that she is required to report any future such seizure to the [facility] within 30 days after the event. [...] st Contact Info) Description 07/20/2024 12:00 PM CAREERS COUNSELLOR Virtual Visit [facility] [address] [place] [phone] Denise Woodson Ra, SPOT MACHINE OPERATOR [facility] [address] [place], [place] [id number] 07/30/2024 8:30 AM CAREERS COUNSELLOR Virtual Visit [facility] Neurology Clinic [address] 3rd [place] [phone] Randy Maradiaga, [address] [address] 08/04/2024 12:00 PM CAREERS COUNSELLOR Virtual Visit [facility] Mental Health and Addiction Clinic [address] [place] [address] Arthur Salas, [address] [address] 08/04/2024 3:30 PM CAREERS COUNSELLOR [facility] [address] [place] [phone] Denise Woodson Ra, SPOT MACHINE OPERATOR JOB COACHING [address] [place], [place] [id number] 08/07/2024 1:00 PM CAREERS COUNSELLOR Appointment [facility] Heart Care 6[address] [facility] [address] [place] [address] [phone] Danna Cardenas PA-C 6405 [place], [place] [address] 08/10/2024 12:30 PM CAREERS COUNSELLOR Virtual Visit [facility] Neuropsychology [address] [phone] Robin Zepeda MD [address] [place] [address] 233045 08/17/2024 12:30 PM CAREERS COUNSELLOR Office Visit [facility] Neuropsychology [address] [phone] Robin Zepeda MD [address] [place] [address] Tulio Ogden, PhD [address] [address] 09/04/2024 11:00 AM CAREERS COUNSELLOR [facility] [address] [place] [phone] Denise Woodson Ra, SPOT MACHINE OPERATOR JOB COACHING [address] [place], [place] [phone] 09/18/2024 1:00 PM CAREERS COUNSELLOR [facility] [address] [place] [phone] Denise Woodson Ra, SPOT MACHINE OPERATOR JOB COACHING [address] [place], [place] [phone] 09/29/2024 9:00 AM CAREERS COUNSELLOR Virtual Visit [facility] Neurology [address] 3rd [place] [phone] Randy Maradiaga, [address] 027[address] 10/09/2024 1:20 PM CAREERS COUNSELLOR Office Visit [facility] Heart [facility] 6405 [facility] [address] [place] [phone] Danna Cardenas PA-C 6405 [place] [address] 10/30/2024 4:00 PM CAREERS COUNSELLOR Virtual Visit [facility] Vascular [place] [address] [place] [phone] Lisa Zambrano MD [address] [place] [address] 12/29/2024 12:45 PM CDT Office Visit [facility] 2450 [facility] Explore Clinic [address],[place] [phone] Fabi Coates MD 420 [facility] 75 [place], [place] [address]65[address] 12/29/2024 1:45 PM CDT Office Visit [facility] 2450 [facility] Explorer [facility] 12th Flr,[place] [phone] Fabi Coates MD [address] [facility] [address] [place] [address] 06/01/2025 11:15 AM CDT Appointment [facility] Care Center Imaging [address] [place] [phone] Robin Zepeda MD [address] [place] [address]6615 06/04/2025 11:00 AM CDT Office Visit [facility] Neurosurgery Clinic [address] 3rd [place] [phone] Robin Zepeda MD [address] [place] [address] Usha Simon APRN [address] [id number] documented as of this encounter Goals Goal [...] Mental Health weekly - PT, OT and WARP PREPARER, continuing through [facility] [place]: - Continue following up with PCP: 09/04/2024 - Vascular Dr. Zambrano 05/01/24 - follow up recommended in 6 months: 11/11/24 TBD #[phone]. - call independently - MTM 05/25/2024, completed - Neurosurgery Dr. Zepeda, following up with HOUSE BUILDER: 06/04/2025 11:00 AM (Arrive by 10:45 AM) [...] clinic with 08/04 after hours services available. Securities Analyst will remain available as needed. documented as of this encounter Visit Diagnoses Diagnosis 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)- Primary Localization-related (focal) (partial) epilepsy and epileptic syndromes with complex partial seizures, without mention of intractable epilepsy Fibromuscular dysplasia (H) Other specified disorders of arteries and arterioles Cerebrovascular accident (CVA), unspecified mechanism (H) documented in this encounter Additional Health Concerns Active Problems Noted Date Diagnosed Date Increased risk of re-admission 02/18/2024 Assessment Noted Time PHQ-9 Depression Total Score: 5 03/17/20 24 9:45 AM CDT documented as of this encounter Care Teams Handle Sander Operator Relationship Specialty Start Date End Date Winston Villatoro OD [facility] [address] [place] [address] PCP - Ophthalmology Ophthalmology 02/11/13 Denise Woodson Ra, APRN CNP [address] [address] PCP - General Family Practice 09/21/20 Denise Woodson Ra, APRN CNP [address] [address] Assigned PCP 07/17/20 Usha Simon APRN CNP 909 [id number] [place] [address] Nurse Practitioner Neurological Surgery 01/24/24 Dangelo Salinas MD [address] [place] [address] Neurology 01/27/24 Anastasia Stearns, RN Lead Securities Analyst 02/06/24 Germaine Lopez, W Community Health Worker Primary Care - CC 02/18/24 Robin Zepeda MD 909 [id number] [address] Assigned Neuroscience Provider 03/08/24 05/07/24 documented as of this encounter
--- OUTSIDE RECORDS SUMMARY | 2024-07-16 13:56 | XMS_ITS | Encounter Summary ---
Author Organization [facility] Address [address] [place] [address] Care Team Providers Care Food Writer Name Role Phone ShaunaWinston OD Unavailable [phone] Denise Woodson Ra, APRN GROUNDS MAINTENANCE SUPERVISOR Unavailable [phone] Denise Woodson Ra, APRN GROUNDS MAINTENANCE SUPERVISOR Primary Care Provid er Usha Simon APRN GROUNDS MAINTENANCE SUPERVISOR Unavailable [phone] Dangelo Salinas MD Unavailable Anastasia Stearns RN Unavailable Germaine Lopez CHW Unavailable [phone] Robin Zepeda MD Unavailable [phone] Encounter Details Date Type Department Care Team [...] How often do you attend quaker or evangelical serv ices? Never 02/28/2024 Do [...] Answer Date Recorded PHQ-2 Score 2 05/05/2024 [facility] of Occupat ional [...] on file Legal Sex 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 LACQUER POLISHER Gender Identity Not on file Sexual Orientation [...] st Contact Info) Description 07/20/2024 12:00 PM LACQUER POLISHER Virtual Visit [facility] [address] [place] [phone] Denise Woodson Ra, FOOD MANAGER [facility] [address] [place], [place] [phone] 07/30/2024 8:30 AM LACQUER POLISHER Virtual Visit [facility] Neurology Clinic [address]rd [place] [phone] Randy Maradiaga, [address] [address] 08/04/2024 12:00 PM LACQUER POLISHER Virtual Visit [facility] Mental Health and Addiction Clinic [address] [place] [address] Arthur Salas, [address] [address] 08/04/2024 3:30 PM LACQUER POLISHER Virtual Visit [facility] [address] [place] [phone] Denise Woodson Ra, FOOD MANAGER GROUNDS MAINTENANCE SUPERVISOR [address] [facility] [place], [place] [phone] 08/07/2024 1:00 PM LACQUER POLISHER Appointment [facility] Heart Care 6405 [facility] [address] [place] [phone] Danna Cardenas PA-C 6405 [place], [place] 950945 08/10/2024 12:30 PM LACQUER POLISHER Virtual Visit [facility] Neuropsychology [address] [phone] Robin Zepeda MD [address] [place] [address] 08/17/2024 12:30 PM LACQUER POLISHER Office Visit [facility] Neuropsychology [address] [phone] Robin Zepeda MD [address] [place] [address] Tulio Ogden, PhD [address] [address] 09/04/2024 11:00 AM LACQUER POLISHER Office Visit [facility] [address] [place] [phone] Denise Woodson Ra, FOOD MANAGER GROUNDS MAINTENANCE SUPERVISOR [address] [place], [place] [phone] 09/18/2024 1:00 PM LACQUER POLISHER [facility] [address] [place] [phone] Denise Woodson Ra, FOOD MANAGER GROUNDS MAINTENANCE SUPERVISOR [address] [place], [place] [phone] 09/29/2024 9:00 AM LACQUER POLISHER Virtual Visit [facility] Neurology [address] 3rd [place] [phone] Randy Maradiaga, [address] 032205 10/09/2024 1:20 PM LACQUER POLISHER Office Visit [facility] Heart [place] [address] [facility] [address] [place] [phone] Danna Cardenas PA-C 6405 [place] [address] 10/30/2024 4:00 PM LACQUER POLISHER Virtual Visit [facility] Vascular [place] [address] [place] [phone] Lisa Zambrano MD [address] [place], [place] [address] 12/29/2024 12:45 PM CDT Office Visit [facility] Explorer [facility] 12th Flr,[place] [phone] Fabi Coates MD 420 [facility] 75 [place], [place] [address] 12/29/2024 1:45 PM CDT [facility] 2450 [facility] Explorer Clinic [address],[place] [address] Fabi Coates MD [address] [place] [address] [facility] 75 [place] [address] 06/01/2025 11:15 AM CDT Appointment [facility] Care Center Imaging [address] [address] [place] [phone] Robin Zepeda MD [address] [place] [address] 373675 06/04/2025 11:00 AM CDT Office Visit [facility] Neurosurgery Clinic [place] 909 [facility] 3rd [place] [address] Robin Zepeda MD [address] [place] [address]8745 Usha Simon APRN GROUNDS MAINTENANCE SUPERVISOR [address] 115[address] documented as of this encounter Goals Goal [...] Health weekly - PT, OT and SERVICE CONTROL OPERATOR, continuing through [facility] [place]: - Continue following up with PCP: 09/04/2024 - Vascular Dr. Zambrano 05/01/24 - follow up recommended in 6 months: 11/11/24 TBD #[phone]. - call independently - MTM 05/25/2024, completed - Neurosurgery Dr. Zepeda, following up with RN ADMISSION: 06/04/2025 11:00 AM (Arrive by 10:45 AM) [...] clinic with / after hours services available. Television Announcer will remain available as needed. documented as of this encounter Visit Diagnoses Not on filedocumented in this encounter Additional Health Concerns Active Problems Noted Date Diagnosed Date Increased risk of re-admission 02/18/2024 Assessment Noted Time PHQ-9 Depression Total Score: 5 03/17/20 24 9:45 AM CDT documented as of this encounter Care Teams Food Writer Relationship Specialty Start Date End Date Winston Villatoro, [facility] [place] [address] [place] [address] PCP - Ophthalmology Ophthalmology 02/11/13 Denise Woodson Ra, APRN CNP [address] [place] [address] PCP - General Family Practice 09/21/20 Denise Woodson Ra, APRN CNP [address] [place] [address] Assigned PCP 07/17/20 Usha Simon APRN CNP 909 [facility] [id number] [place] [address] Nurse Practitioner Neurological Surgery 01/24/24 Dangelo Salinas MD [address] [place] [address] Neurology 01/27/24 Anastasia Stearns, RN Lead Television Announcer 02/06/24 Germaine Lopez, W Community Health Worker Primary Care - CC 02/18/24 Robin Zepeda MD 909 [facility] [id number] [place] [address] Assigned Neuroscience Provider 03/08/24 05/07/24 documented as of this encounter
--- OUTSIDE RECORDS SUMMARY | 2024-07-16 13:56 | XMS_ITS | Encounter Summary ---
Author Organization [facility] Address [address] [place] [address]. [place] [address] Care Team Providers Care Peanut Vendor Name Role Phone ShaunaWinston OD Unavailable [phone] Denise Woodson Ra, APRN BEHAVIORIST Unavailable + [phone] Denise Woodson Ra, APRN BEHAVIORIST Primary Care Provid er Usha Simon APRN BEHAVIORIST Unavailable + [phone] Dangelo Salinas MD Unavailable Anastasia Stearns RN Unavailable Germaine Lopez CHW Unavailable [phone] Robin Zepeda MD Unavailable [phone] Reason for Visit * Reason Comments Medication Refill Encounter Details Date Type Department Care Team (Late st Contact Info) Description 04/27/2024 [facility] [address] [place] [address] Denise Woodson Ra, APRN BEHAVIORIST [address] [place] [address] Medication Refill Social History Tobacco [...] often do you attend roman catholic or church serv ices? 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 Is she remaining on this med? CHIKIS documented in this encounter Plan of Treatment Upcoming Encounters Date Type Department Care Team (Late st Contact Info) Description 07/20/2024 12:00 PM CO FOUNDER AND CHIEF STRATEGY OFFICER Virtual Visit [facility] [address] [place] [phone] Denise Woodson Ra, APRN BEHAVIORIST [address] [place] [address] 07/30/2024 8:30 AM CO FOUNDER AND CHIEF STRATEGY OFFICER Virtual Visit [facility] Neurology Clinic [address] [phone] Randy Maradiaga, [address] [address] 08/04/2024 12:00 PM CO FOUNDER AND CHIEF STRATEGY OFFICER Virtual Visit [facility] Mental Health and Addiction Clinic [address] [address] Arthur Salas, [address] [address] 08/04/2024 3:30 PM CO FOUNDER AND CHIEF STRATEGY OFFICER Virtual Visit [facility] [address] [place] [phone] Denise Woodson Ra, APRN BEHAVIORIST [address] [place] [address] 08/07/2024 1:00 PM CO FOUNDER AND CHIEF STRATEGY OFFICER Appointment [facility] Heart Care 6405 [facility] [address] [place] [address] Danna Cardenas PA-C 6405 [place] [address] 08/10/2024 12:30 PM CO FOUNDER AND CHIEF STRATEGY OFFICER Virtual Visit [facility] Neuropsychology [address] [phone] Robin Zepeda MD [address] [place] [address] 08/17/2024 12:30 PM CO FOUNDER AND CHIEF STRATEGY OFFICER Office Visit [facility] Neuropsychology [address] [phone] Robin Zepeda MD [address] [place] [address] Tulio Ogden, PhD [address] [address] 09/04/2024 11:00 AM CO FOUNDER AND CHIEF STRATEGY OFFICER Office Visit [facility] [address] [place] [phone] Denise Woodson Ra, SHALE MINER BLASTING BEHAVIORIST [address] [place] [address] 09/18/2024 1:00 PM CO FOUNDER AND CHIEF STRATEGY OFFICER Office Visit [facility] [address] [place] [phone] Denise Woodson Ra, SHALE MINER BLASTING BEHAVIORIST [address] [place] [address] 09/29/2024 9:00 AM CO FOUNDER AND CHIEF STRATEGY OFFICER Virtual Visit [facility] Neurology [facility] 909 [facility] 3rd [place] [phone] Randy Maradiaga, [address] [address] 10/09/2024 1:20 PM CO FOUNDER AND CHIEF STRATEGY OFFICER Office Visit [facility] Heart [facility] [address] [facility] [address] [place] [phone] Danna Cardenas PA-C [address] [facility] [place] [address] 10/30/2024 4:00 PM CO FOUNDER AND CHIEF STRATEGY OFFICER Virtual Visit [facility] Vascular Clinic [place] [address] [place] [phone] Lisa Zambrano MD [address] [place], [place] [address] 12/29/2024 12:45 PM CDT Office Visit [facility] [address] [place] [address] Ave [address] [phone] Fabi Coates MD [address] [place] [address] 2516[address] 12/29/2024 1:45 PM CDT Office Visit [facility] [address] [place], [place] [address]e Explorer [address] [phone] Fabi Coates MD [address] [place] [address] 4748[address] 06/01/2025 11:[address] [facility] Imaging [address] [facility] [address] [place] [phone] Robin Zepeda MD [address] [place] [address] 06/04/2025 11:00 AM CDT Office Visit [facility] Neurosurgery Clinic [address] 3rd [place] [phone] Robin Zepeda MD [address] [place] [address]4965 Usha Simon APRN BEHAVIORIST [address] [place] [address] 378635 documented as of this encounter Goals Goal [...] Mental Health weekly - PT, OT and RECEIVER BULK SYSTEM, continuing through [facility] [place]: - Continue following up with PCP: 09/04/2024 - Vascular Dr. Zambrano 05/01/24 - follow up recommended in 6 months: 11/11/24 TBD #[phone]. - call independently - MTM 05/25/2024, completed - Neurosurgery Dr. Zepeda, following up with TABLE TOP TILE SETTER: 06/04/2025 11:00 AM (Arrive by 10:45 AM) Usha Simon APRN BEHAVIORIST 2. I will take my medications as prescribed. 3. I will discuss, review, schedule and complete recommended overdue health maintenance with my Primary Care Provider. 4. I will contact my care team with questions, concerns, support needs. I will use the clinic as a resource and I understand I can contact my clinic with 24/7 after hours services available. Associate Spa Director will remain available as needed. documented as of this encounter Visit Diagnoses Diagnosis History of seizure documented in this encounter Additional Health Concerns Active Problems Noted Date Diagnosed Date Increased risk of re-admission 02/18/2024 Assessment Noted Time PHQ-9 Depression Total Score: 5 03/17/20 24 9:45 AM CDT documented as of this encounter Care Teams Peanut Vendor Relationship Specialty Start Date End Date ShaunaWinston OD [facility] [place] 701 [facility] [address] [place] [address] PCP - Ophthalmology Ophthalmology 02/11/13 Denise Woodson Ra, APRN BEHAVIORIST [address] [place] [address] PCP - General Family Practice 09/21/20 Denise Woodson Ra, APRN BEHAVIORIST [address] [place] [address] Assigned PCP 07/17/20 Usha Simon APRN BEHAVIORIST 909 [facility]2[address] [address] Nurse Practitioner Neurological Surgery 01/24/24 Dangelo Salinas MD [address] [place], [place] [phone] Neurology 01/27/24 Anastasia Stearns, RN Lead Associate Spa Director 02/06/24 Germaine Lopez, W Community Health Worker Primary Care - CC 02/18/24 Robin Zepeda MD 909 [facility] [id number] [place] [address] Assigned Neuroscience Provider 03/08/24 05/07/24 documented as of this encounter
--- OUTSIDE RECORDS SUMMARY | 2024-07-16 13:56 | XMS_ITS | Encounter Summary ---
Author Organization [facility] Address [address] [place] [address] Care Team Providers Care Head Of Acquisitions Name Role Phone ShaunaWinston OD Unavailable [phone] Denise Woodson Ra, APRN MASONRY CONTRACTOR ADMINISTRATOR Unavailable [phone]- [phone] Denise Woodson Ra, APRN MASONRY CONTRACTOR ADMINISTRATOR Primary Care Provid er Usha Simon APRN MASONRY CONTRACTOR ADMINISTRATOR Unavailable [phone] Dangelo Salinas MD Unavailable Anastasia Stearns RN Unavailable [phone] Germaine Lopez CHW Unavailable [phone] Robin Zepeda MD Unavailable [phone] Reason for Visit * Rehab Therapy Integrated Services (Routine) - Authorized Specialty Diagnoses / Procedures Referred By Nila shah Referred To Contact Diagnoses Cerebrovascular accident (CVA), unspecified mechanism (H) [address] [address] Phone: tel: Referral ID Status Reason Start Date Expiration Date V isits Requested Visits Authorized [id number] Authorized 09/16/2023 09/15/2024 365 365 Encounter Details Date Type Department Care Team (Late st Contact Info) Description 04/15/2024 9:30 AM CDT Therapy Visit [address] [phone] Danya You, PA [address] [place], [place] [address]IDE [address] [place] [address] Danya Restrepo, SENIOR ANALYST MARKET INTELLIGENCE Cognitive communication deficit (Primary Dx); Cerebrovascular accident [...] How often do you attend yazidi or zoroastrianism serv ices? 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 Not on file Not on file Not on file Not on file Not on file Not on file documented as of this encounter Plan of Treatment Upcoming Encounters Date Type Department Care Team (Late st Contact Info) Description 07/20/2024 12:00 PM MEDICAL SALES ASSOCIATE Virtual Visit [facility] [address] [place] [phone] Denise Woodsno Ra, HIGHWAY ADMINISTRATIVE ENGINEER MASONRY CONTRACTOR ADMINISTRATOR [address] [place], [place] [id number] 07/30/2024 8:30 AM MEDICAL SALES ASSOCIATE Virtual Visit [facility] [address] [place] [phone] Randy Maradiaga DO [address] [place] [address] 08/04/2024 12:00 PM MEDICAL SALES ASSOCIATE Virtual Visit [facility] [address] [place] [address] Arthur Salas, [address] [address] 08/04/2024 3:30 PM MEDICAL SALES ASSOCIATE [facility] [address] [place] [phone] Denise Woodson Ra, HIGHWAY ADMINISTRATIVE ENGINEER MASONRY CONTRACTOR ADMINISTRATOR [address] [place], [place] 1846668 08/07/2024 1:00 PM MEDICAL SALES ASSOCIATE Appointment [facility] [address] [facility] [address] [place] [phone] Danna Cardenas PA-C 6405 [place] [address] 08/10/2024 12:30 PM MEDICAL SALES ASSOCIATE Virtual Visit [facility] Neuropsychology [address] [place] [phone] Robin Zepeda MD [address] [place] [address] [id number] [place], [place] 640375 08/17/2024 12:30 PM MEDICAL SALES ASSOCIATE Office Visit [facility] Neuropsychology [address] [phone] Robin Zepeda MD [address] [place] [address] [id number] [place], [place] 176115 Tulio Ogden, PhD [address] [address] 09/04/2024 11:00 AM MEDICAL SALES ASSOCIATE Office Visit [facility] [address] [place] [phone] Denise Woodson Ra, HIGHWAY ADMINISTRATIVE ENGINEER MASONRY CONTRACTOR ADMINISTRATOR [address] [place], [place] 9647768 09/18/2024 1:00 PM MEDICAL SALES ASSOCIATE Office Visit [facility] [address] [place] [address] Denise Woodson Ra, HIGHWAY ADMINISTRATIVE ENGINEER MASONRY CONTRACTOR ADMINISTRATOR [address] [place], [place] [id number] 09/29/2024 9:00 AM MEDICAL SALES ASSOCIATE Virtual Visit [facility] Neurology [address] [phone] Randy Maradiaga, [address] [place] [address] 10/09/2024 1:20 PM MEDICAL SALES ASSOCIATE Office Visit [facility] Heart [place] [address] [facility] [address] [place] [phone] Danna Cardenas PA-C [address] [place] [address] 386955 10/30/2024 4:00 PM MEDICAL SALES ASSOCIATE Virtual Visit [facility] [place] [address] [place] [phone] Lisa Zambrano MD [address] [place] [address] 12/29/2024 12:45 PM CDT Office Visit [facility] [address] [place] [address] Ave [address] [phone] Fabi Coates MD [address] [place] [address] 12/29/2024 1:45 PM CDT Office Visit [facility] [address] [place] [address] Ave Explorer [address] [phone] Fabi Coates MD [address] [place] [address] 340595 06/01/2025 11:15 AM CDT Appointment [facility] [address] [facility] [address] [place] [phone] Robin Zepeda MD [address] [place] [address] 06/04/2025 11:00 AM CDT Office Visit [facility] Neurosurgery [address] 3rd [place] [phone] Robin Zepeda MD [address] [place] [address] Usha Simon APRN [place] [id number] [place] [address] documented as of this encounter Goals Goal [...] Health weekly - PT, OT and SENIOR ANALYST MARKET INTELLIGENCE, continuing through [facility] [place]: - Continue following up with PCP: 09/04/2024 - Vascular Dr. Zambrano 05/01/24 - follow up recommended in 6 months: 11/11/24 TBD #[phone]. - call independently - MTM 05/25/2024, completed - Neurosurgery Dr. Zepeda, following up with TOOTH POLISHER: 06/04/2025 11:00 AM (Arrive by 10:45 AM) [...] clinic with 24/7 after hours services available. Caddie Supervisor will remain available as needed. documented as of this encounter Visit Diagnoses Diagnosis Cognitive communication deficit- Primary Cerebrovascular accident (CVA), unspecified mechanism (H) documented in this encounter Additional Health Concerns Active Problems Noted Date Diagnosed Date Increased risk of re-admission 02/18/2024 Assessment Noted Time PHQ-9 Depression Total Score: 5 03/17/20 24 9:45 AM CDT documented as of this encounter Care Teams Head Of Acquisitions Relationship Specialty Start Date End Date Winston Villatoro OD [facility] [place] [address] [place] [address] PCP - Ophthalmology Ophthalmology 02/11/13 Denise Woodson Ra, APRN MASONRY CONTRACTOR ADMINISTRATOR [address] [place], [place] [address] PCP - General Family Practice 09/21/20 Denise Woodson Ra, APRN MASONRY CONTRACTOR ADMINISTRATOR [address] [place] [address] Assigned PCP 07/17/20 Usha Simon APRN MASONRY CONTRACTOR ADMINISTRATOR [address] [place] [address] 540335 Nurse Practitioner Neurological Surgery 01/24/24 Dangelo Salinas MD [address] [place] [address] Neurology 01/27/24 Anastasia Stearns, RN Lead Caddie Supervisor 02/06/24 Germaine Lopez, W Community Health Worker Primary Care - CC 02/18/24 Robin Zepeda MD [address] [place] [address] Assigned Neuroscience Provider 03/08/24 05/07/24 documented as of this encounter
--- OUTSIDE RECORDS SUMMARY | 2024-07-16 13:56 | XMS_ITS | Encounter Summary ---
Author Organization [facility] Address [address] [place] [address] Care Team Providers Care Foreign Exchange Position Clerk Name Role Phone ShaunaWinston OD Unavailable [phone] Denise Woodson Ra, APRN BAND SPLICER Unavailable [phone] Denise Woodson Ra, APRN BAND SPLICER Primary Care Provid er Usha Simon APRN BAND SPLICER Unavailable [phone] Dangelo Salinas MD Unavailable Anastasia Stearns RN Unavailable [phone] Germaine Lopez CHW Unavailable [phone] Robin Zepeda MD Unavailable [phone] Encounter Details Date Type Department Care Team [...] How often do you attend scientologist or nondenominational serv ices? 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 Not on file Not on file Not on file Not on file Not on file Not on file documented as of this encounter Plan of Treatment Upcoming Encounters Date Type Department Care Team (Late st Contact Info) Description 07/20/2024 12:00 PM GASOLINE CATALYST OPERATOR Virtual Visit [facility] [address] [place] [phone] Denise Woodson Ra, DRIVER SUPERVISOR [facility] [address] [place], [place] 8678168 07/30/2024 8:30 AM GASOLINE CATALYST OPERATOR Virtual Visit [facility] [address] [place] [phone] Randy Maradiaga, [address] [address] 08/04/2024 12:00 PM GASOLINE CATALYST OPERATOR Virtual Visit [facility] [address] [place] [address] Arthur Salas, [address] [address] 08/04/2024 3:30 PM GASOLINE CATALYST OPERATOR Virtual Visit [facility] [address] [place] [phone] Denise Woodson Ra, DRIVER SUPERVISOR BAND SPLICER [address] [facility] [place], [place] 1041368 08/07/2024 1:00 PM GASOLINE CATALYST OPERATOR Appointment [facility] Heart Care 6405 [facility] [address] [place] [phone] Danna Cardenas PA-C 6405 [place], [place] 701205 08/10/2024 12:30 PM GASOLINE CATALYST OPERATOR Virtual Visit [facility] Neuropsychology [address] [phone] Robin Zepeda MD [address] [place] [address] 08/17/2024 12:30 PM GASOLINE CATALYST OPERATOR Office Visit [facility] Neuropsychology [address] [phone] Robin Zepeda MD [address] [place] [address] Tulio Ogden, PhD [address] [address] 09/04/2024 11:00 AM GASOLINE CATALYST OPERATOR Office Visit [facility] [address] [place] [phone] Denise Woodson Ra, DRIVER SUPERVISOR BAND SPLICER [address] [place], [place] 0240168 09/18/2024 1:00 PM GASOLINE CATALYST OPERATOR [facility] [address] [place] [phone] Denise Woodson Ra, DRIVER SUPERVISOR BAND SPLICER [address] [place], [place] 7751068 09/29/2024 9:00 AM GASOLINE CATALYST OPERATOR Virtual Visit [facility] Neurology [address] 3rd [place] [phone] Randy Maradiaga, [address] 144025 10/09/2024 1:20 PM GASOLINE CATALYST OPERATOR Office Visit [facility] Heart [place] 389665 [facility] [address] [place] [phone] Danna Cardenas PA-C 6405 [place] [address] 10/30/2024 4:00 PM GASOLINE CATALYST OPERATOR Virtual Visit [facility] Vascular [place] [address] [place] [phone] Lisa Zambrano MD [address] [place], [place] 0[address]45 12/29/2024 12:45 PM CDT Office Visit [facility]0 [facility] Explorer [facility] [address]th [address],[place] [phone] Fabi Coates MD 420 [facility] 75 [place], [place] 746705 12/29/2024 1:45 PM CDT [facility] 2450 [facility] [address],[place] [address] Fabi Coates MD [address] [facility] 75 [place] [address] 06/01/2025 11:15 AM CDT Appointment [facility] Imaging [address] [place] [phone] Robin Zepeda MD [address] [place] [address] 293425 06/04/2025 11:00 AM CDT Office Visit [facility] [place] 909 [facility] 3rd [place] [phone] Robin Zepeda MD [address] [place] [address] 568645 Usha Simon APRN BAND SPLICER [address] 068825 documented as of this encounter Goals Goal [...] Mental Health weekly - PT, OT and CONSTRUCTION PERSON, continuing through [facility] [place]: - Continue following up with PCP: 09/04/2024 - Vascular Dr. Zambrano 05/01/24 - follow up recommended in 6 months: 11/11/24 TBD #[phone]. - call independently - MTM 05/25/2024, completed - Neurosurgery Dr. Zepeda, following up with SIGNAL WORKER HELPER: 06/04/2025 11:00 AM (Arrive by 10:45 AM) [...] clinic with / after hours services available. Workforce Manager will remain available as needed. documented as of this encounter Visit Diagnoses Not on filedocumented in this encounter Additional Health Concerns Active Problems Noted Date Diagnosed Date Increased risk of re-admission 02/18/2024 Assessment Noted Time PHQ-9 Depression Total Score: 5 03/17/20 24 9:45 AM CDT documented as of this encounter Care Teams Foreign Exchange Position Clerk Relationship Specialty Start Date End Date Winston Villatoro, AMELIE [facility] [place] [address] [place] [address] PCP - Ophthalmology Ophthalmology 02/11/13 Denise Woodson Ra, APRN CNP [address] [place] [address] PCP - General Family Practice 09/21/20 Denise Woodson Ra, APRN CNP [address] [place] [address] Assigned PCP 07/17/20 Usha Simon APRN CNP 909 [facility] [id number] [place] [address] Nurse Practitioner Neurological Surgery 01/24/24 Dangelo Salinas MD [address] [place] [address] Neurology 01/27/24 Anastasia Stearns, RN Lead Workforce Manager 02/06/24 Germaine Lopez, W Community Health Worker Primary Care - CC 02/18/24 Robin Zepeda MD 909 [facility] [id number] [place] [address] Assigned Neuroscience Provider 03/08/24 05/07/24 documented as of this encounter
--- OUTSIDE RECORDS SUMMARY | 2024-07-16 13:56 | XMS_ITS | Encounter Summary ---
Author Organization [facility] Address [address] [place] [address] Care Team Providers Care House Player Name Role Phone ShaunaWinston OD Unavailable [phone] Denise Woodson Ra, APRN COKE DRAWER HAND Unavailable [phone] Denise Woodson Ra, APRN COKE DRAWER HAND Primary Care Provid er Usha Simon APRN COKE DRAWER HAND Unavailable [phone] Dangelo Salinas MD Unavailable Anastasia Stearns RN Unavailable [phone] Germaine oLpez CHW Unavailable [phone] Robin Zepeda MD Unavailable [phone] Encounter Details Date Type Department Care Team [...] How often do you attend anglican or moravian serv ices? Never 02/28/2024 Do [...] Answer Date Recorded PHQ-2 Score 1 04/14/2024 [facility] of Occupat ional Health - [...] on file Legal Sex 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 LINING FELLER Gender Identity Not on file Sexual Orientation [...] st Contact Info) Description 07/20/2024 12:00 PM LINING FELLER Virtual Visit [facility] [address] [place] [phone] Denise Woodson Ra, SECURITY DIRECTOR [facility] [address] [place], [place] 9111868 07/30/2024 8:30 AM LINING FELLER Virtual Visit [facility] [address]rd [place] [phone] Randy Maradiaga, [address] [address] 08/04/2024 12:00 PM LINING FELLER Virtual Visit [facility] [address] [place] [address] Arthur Salas, [address] [address] 08/04/2024 3:30 PM LINING FELLER Virtual Visit [facility] [address] [place] [phone] Denise Woodson Ra, SECURITY DIRECTOR COKE DRAWER HAND [address] [facility] [place], [place] 3470568 08/07/2024 1:00 PM LINING FELLER Appointment [facility] Heart Care 6405 [facility] [address] [place] [phone] Danna Cardenas PA-C 6405 [place], [place] 220105 08/10/2024 12:30 PM LINING FELLER Virtual Visit [facility] Neuropsychology [address] [phone] Robin Zepeda MD [address] [place] [address] 08/17/2024 12:30 PM LINING FELLER Office Visit [facility] Neuropsychology [address] [phone] Robin Zepeda MD [address] [place] [address] Tulio Ogden, PhD [address] [address] 09/04/2024 11:00 AM LINING FELLER Office [facility] [address] [place] [phone] Denise Woodson Ra, SECURITY DIRECTOR COKE DRAWER HAND [address] [place], [place] 6128068 09/18/2024 1:00 PM LINING FELLER [facility] [address] [place] [phone] Denise Woodson Ra, SECURITY DIRECTOR COKE DRAWER HAND [address] [place], [place] 1791968 09/29/2024 9:00 AM LINING FELLER Virtual Visit [facility] Neurology [address] 3rd [place] [phone] Randy Maradiaga, [address] 936165 10/09/2024 1:20 PM LINING FELLER Office Visit [facility] Heart [place] [address] [facility] [address] [place] [phone] Danna Cardenas PA-C 6405 [place] [address] 10/30/2024 4:00 PM LINING FELLER Virtual Visit [facility] Vascular [place] [address] [place] [phone] Lisa Zambrano MD [address] [place], [place] 7[address]85 12/29/2024 12:45 PM CDT Office Visit [facility] Explorer [facility] [address],[place] [phone] Fabi Coates MD 420 [facility] 75 [place], [place] 868575 12/29/2024 1:45 PM CDT [facility] Visit [facility] 2450 [facility] [address],[place] [address] Fabi Coates MD [address] [place] [address] [facility] 75 [place] [address] 06/01/2025 11:15 AM CDT Appointment [facility] Imaging [address] [place] [phone] Robin Zepeda MD [address] [place] [address]4075 06/04/2025 11:00 AM CDT Office Visit [facility] [place] 909 [facility] 3rd [place] [phone] Robin Zepeda MD [address] [place] [address] 713715 Usha Simon APRN COKE DRAWER HAND [address] 737[address] documented as of this encounter Goals Goal [...] Health weekly - PT, OT and HOT DIP TINNING SUPERVISOR, continuing through [facility] [place]: - Continue following up with PCP: 09/04/2024 - Vascular Dr. Zambrano 05/01/24 - follow up recommended in 6 months: 11/11/24 TBD #[phone]. - call independently - MTM 05/25/2024, completed - Neurosurgery Dr. Zepeda, following up with MATRIX BATH OPERATOR: 06/04/2025 11:00 AM (Arrive by 10:45 [...] with / after hours services available. Mold Carpenter will remain available as needed. documented as of this encounter Visit Diagnoses Not on filedocumented in this encounter Additional Health Concerns Active Problems Noted Date Diagnosed Date Increased risk of re-admission 02/18/2024 Assessment Noted Time PHQ-9 Depression Total Score: 5 03/17/20 24 9:45 AM CDT documented as of this encounter Care Teams House Player Relationship Specialty Start Date End Date Winston Villatoro, AMELIE [facility] [place] [address] [place] [address] PCP - Ophthalmology Ophthalmology 02/11/13 Denise Woodson Ra, APRN CNP [address] [place] [address] PCP - General Family Practice 09/21/20 Denise Woodson Ra, APRN CNP [address] [place] [address] Assigned PCP 07/17/20 Usha Simon APRN CNP 909 [facility] [id number] [place] [address] Nurse Practitioner Neurological Surgery 01/24/24 Dangelo Salinas MD [address] [place] [address] Neurology 01/27/24 Anastasia Stearns, RN Lead Mold Carpenter 02/06/24 Germaine Lopez, W Community Health Worker Primary Care - CC 02/18/24 Robin Zepeda MD 909 [facility] [id number] [place] [address] Assigned Neuroscience Provider 03/08/24 05/07/24 documented as of this encounter
--- OUTSIDE RECORDS SUMMARY | 2024-07-16 13:56 | XMS_ITS | Encounter Summary ---
Author Organization [facility] Address [address] [place] [address]. [place] [address] Care Team Providers Care Gristmiller Name Role Phone Winston Villatoro Se OD Unavailable [phone] Denise Woodson Ra, APRN BI REPORT DEVELOPER Unavailable + [phone] Denise Woodson Ra CONSTRUCTION SITE CROSSING GUARD BI REPORT DEVELOPER Primary Care Provid er Usha Simon APRN BI REPORT DEVELOPER Unavailable + [phone] Dangelo Salinas MD Unavailable Anastasia Stearns RN Unavailable Germaine Lopez CHW Unavailable [phone] Robin Zepeda MD Unavailable [phone] Reason for Visit * Reason Comments Medication Refill Encounter Details Date Type Department Care Team (Late st Contact Info) Description 04/30/2024 [facility] [address] [place] [address] Denise Woodson Ra, APRN BI REPORT DEVELOPER [address] [place] [address] Medication Refill Social History Tobacco [...] How often do you attend zoroastrian or congregational serv ices? 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 Not on [...] st Contact Info) Description 07/20/2024 12:00 PM LINE WORKER Virtual Visit [facility] [address] [place] [phone] Denise Woodson Ra, CONSTRUCTION SITE CROSSING GUARD BI REPORT DEVELOPER [address] [place] [address] 07/30/2024 8:30 AM LINE WORKER Virtual Visit [facility] Neurology Clinic [address] [phone] Randy Maradiaga DO 909 [place] [address] 08/04/2024 12:00 PM LINE WORKER Virtual Visit [facility] Mental Health and Addiction Clinic [address] [place] [address] Arthur Salas, [address] [address] 08/04/2024 3:30 PM LINE WORKER Virtual Visit [facility] [address] [place] [phone] Denise Woodson Ra, CONSTRUCTION SITE CROSSING GUARD [facility] [address] [place] [address] 08/07/2024 1:00 PM LINE WORKER Appointment [facility] Heart Care 6405 [facility] [address] [place] [phone] Danna Cardenas PA-C 6405 [place], [place] 904[address] 08/10/2024 12:30 PM LINE WORKER Virtual Visit [facility] Clinic Neuropsychology [place] [address] [phone] Robin Zepeda MD [address] [place] [address] [id number] [place] [address] 08/17/2024 12:30 PM LINE WORKER Office Visit [facility] Neuropsychology [address] [phone] Robin Zepeda MD 909 [facility] [id number] [place] [address] Tulio Ogden, PhD [address] [address] 09/04/2024 11:00 AM LINE WORKER Office Visit [facility] [address] [place] [phone] Denise Woodson Ra, CONSTRUCTION SITE CROSSING GUARD BI REPORT DEVELOPER [address] [place], [place] 8839668 09/18/2024 1:00 PM LINE WORKER Office Visit [facility] [address] [place] [phone] Denise Woodson Ra, CONSTRUCTION SITE CROSSING GUARD BI REPORT DEVELOPER [address] [place], [place] 3935068 09/29/2024 9:00 AM LINE WORKER Virtual Visit [facility] Neurology [address] 3rd [place] [phone] Randy Maradiaga DO [address] [place] [address] 10/09/2024 1:20 PM LINE WORKER Office Visit [facility] Heart [facility] 6405 [facility] [address] [place] [phone] Danna Cardenas PA-C [address] [place] [address] 473215 10/30/2024 4:00 PM LINE WORKER Virtual Visit [facility] Vascular [facility] 6405 [facility] [place] [phone] Lisa Zambrano MD [address] [place] , [place] [address] 12/29/2024 12:45 PM CDT Office Visit [facility] Pediatric Specialty Clinic [address] [place] [phone] Fabi Coates MD [address] 822555 12/29/2024 1:45 PM CDT Office Visit [facility] Pediatric Specialty [address] [phone] Fabi Coates MD [address] [place] [address] 177605 06/01/2025 11:15 AM CDT Appointment [facility] [address] [facility] [address] [place] [address] Robin Zepeda MD [address] [place] [address] 9928[address] 06/04/2025 11:00 AM CDT Office Visit [facility] Neurosurgery [address] 3rd [place] [phone] Robin Zepeda MD [address] [place] [address] 657075 Usha Simon APRN [address] 547445 documented as of this encounter Goals Goal [...] Health weekly - PT, OT and SOFTWARE SUPPORT ANALYST, continuing through [facility] [place]: - Continue following up with PCP: 09/04/2024 - Vascular Dr. Zambrano 05/01/24 - follow up recommended in 6 months: 11/11/24 TBD #[phone]. - call independently - MTM 05/25/2024, completed - Neurosurgery Dr. Zepeda, following up with PEAR PICKER: 06/04/2025 11:00 AM (Arrive by 10:45 AM) Usha Simon, CONSTRUCTION SITE CROSSING GUARD BI REPORT DEVELOPER 2. I will take my medications as prescribed. 3. I will discuss, review, schedule and complete recommended overdue health maintenance with my Primary Care Provider. 4. I will contact my care team with questions, concerns, support needs. I will use the clinic as a resource and I understand I can contact my clinic with 24/7 after hours services available. Healthcare Network Consultant will remain available as needed. documented as of this encounter Visit Diagnoses Diagnosis History of seizure documented in this encounter Additional Health Concerns Active Problems Noted Date Diagnosed Date Increased risk of re-admission 02/18/2024 Assessment Noted Time PHQ-9 Depression Total Score: 5 03/17/20 24 9:45 AM CDT documented as of this encounter Care Teams Gristmiller Relationship Specialty Start Date End Date Winston Villatoro OD [facility] 701 [facility] [address] [place] [address] PCP - Ophthalmology Ophthalmology 02/11/13 Denise Woodson Ra, CONSTRUCTION SITE CROSSING GUARD BI REPORT DEVELOPER [address] [place] [address] PCP - General Family Practice 09/21/20 Denise Woodson Ra, APRN BI REPORT DEVELOPER [address] [place] [address] Assigned PCP 07/17/20 Usha Simon APRN BI REPORT DEVELOPER [address] 720105 Nurse Practitioner Neurological Surgery 01/24/24 Dangelo Salinas MD [address] [place] [address] Neurology 01/27/24 Anastasia Stearns, RN Lead Healthcare Network Consultant 02/06/24 Germaine Lopez, W Community Health Worker Primary Care - CC 02/18/24 Robin Zepeda MD [address] 828535 Assigned Neuroscience Provider 03/08/24 05/07/24 documented as of this encounter
--- OUTSIDE RECORDS SUMMARY | 2024-07-16 13:56 | XMS_ITS | Encounter Summary ---
Author Organization [facility] Address [address] [place] [address] Care Team Providers Care Sky Cap Name Role Phone ShaunaWinston OD Unavailable [phone] Denise Woodson Ra, APRN PRESSURE SUPERVISOR Unavailable [phone] Denise Woodson Ra, APRN PRESSURE SUPERVISOR Primary Care Provid er Usha Simon APRN PRESSURE SUPERVISOR Unavailable [phone] Dangelo Salinas MD Unavailable Anastasia Stearns RN Unavailable [phone] Germaine Lopez CHW Unavailable [phone] Robin Zepeda MD Unavailable [phone] Encounter Details Date Type Department Care Team [...] How often do you attend yazidism or islam serv ices? 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 Not on file Not on file Not on file Not on file Not on file Not on file documented as of this encounter Plan of Treatment Upcoming Encounters Date Type Department Care Team (Late st Contact Info) Description 07/20/2024 12:00 PM HOSE TUBING BACKER Virtual Visit [facility] [address] [place] [phone] Denise Woodson Ra, PENOLOGY PROFESSOR [facility] [address] [place], [place] [phone] 07/30/2024 8:30 AM HOSE TUBING BACKER Virtual Visit [facility] Neurology Clinic [address] [place] [phone] Randy Maradiaga, [address] [address] 08/04/2024 12:00 PM HOSE TUBING BACKER Virtual Visit [facility] Mental Health and Addiction Clinic [address] [place] [address] Arthur Salas, [address] [address] 08/04/2024 3:30 PM HOSE TUBING BACKER Virtual Visit [facility] [address] [place] [phone] Denise Woodson Ra, PENOLOGY PROFESSOR PRESSURE SUPERVISOR [address] [facility] [place] [address]32[address] 08/07/2024 1:00 PM HOSE TUBING BACKER Appointment [facility] Heart Care 6405 [facility] [address] [place] [phone] Danna Cardenas PA-C 6405 [place], [place] 9[address]75 08/10/2024 12:30 PM HOSE TUBING BACKER Virtual Visit [facility] Neuropsychology [address] [phone] Robin Zepeda MD [address] [place] [address] 08/17/2024 12:30 PM HOSE TUBING BACKER Office Visit [facility] Neuropsychology [address] [phone] Robin Zepeda MD [address] [place] [address] Tulio Ogden, PhD [address] [address] 09/04/2024 11:00 AM HOSE TUBING BACKER Office Visit [facility] [address] [place] [phone] Denise Woodson Ra, PENOLOGY PROFESSOR PRESSURE SUPERVISOR [address] [place], [place] [phone] 09/18/2024 1:00 PM HOSE TUBING BACKER [facility] [address] [place] [phone] Denise Woodson Ra, PENOLOGY PROFESSOR PRESSURE SUPERVISOR [address] [place], [place] [phone] 09/29/2024 9:00 AM HOSE TUBING BACKER Virtual Visit [facility] Neurology [address] 3rd [place] [phone] Randy Maradiaga, [address] 268615 10/09/2024 1:20 PM HOSE TUBING BACKER Office Visit [facility] Heart [place] 800715 [facility] [address] [place] [phone] Danna Cardenas PA-C 6405 [place] [address] 10/30/2024 4:00 PM HOSE TUBING BACKER Virtual Visit [facility] Vascular [place] [address] [place] [phone] Lisa Zambrano MD [address] [place], [place] 49[address] 12/29/2024 12:45 PM CDT Office Visit [facility] Explore Pediatric Specialty [facility]0 [facility] Explorer [facility] [address]th [place],[place] [phone] Fabi Coates MD 420 [facility] 75 [place], [place] 192405 12/29/2024 1:45 PM CDT [facility] 2450 [facility] Explorer Clinic [address],[place] [address] Fabi Coates MD [address] [place] [facility] 75 [place] [address] 06/01/2025 11:15 AM CDT Appointment [facility] Imaging [address] [place] [phone] Robin Zepeda MD [address] [place] [address] 204665 06/04/2025 11:00 AM CDT Office Visit [facility] Neurosurgery Clinic [place] 909 [facility] 3rd [place] [phone] Robin Zepeda MD [address] [place] [address]45595 Usha Simon APRN PRESSURE SUPERVISOR [address] 912025 documented as of this encounter Goals Goal [...] Mental Health weekly - PT, OT and LEGAL NURSE CONSULTANT, continuing through [facility] [place]: - Continue following up with PCP: 09/04/2024 - Vascular Dr. Zambrano 05/01/24 - follow up recommended in 6 months: 11/11/24 TBD #[phone]. - call independently - MTM 05/25/2024, completed - Neurosurgery Dr. Zepeda, following up with BIN FILLER: 06/04/2025 11:00 AM (Arrive by 10:45 AM) [...] clinic with / after hours services available. Scarfing Machine Operator will remain available as needed. documented as of this encounter Visit Diagnoses Not on filedocumented in this encounter Additional Health Concerns Active Problems Noted Date Diagnosed Date Increased risk of re-admission 02/18/2024 Assessment Noted Time PHQ-9 Depression Total Score: 5 03/17/20 24 9:45 AM CDT documented as of this encounter Care Teams Sky Cap Relationship Specialty Start Date End Date Winston Villatoro, [facility]IE [facility] [place] [address] [place] [address] PCP - Ophthalmology Ophthalmology 02/11/13 Denise Woodson Ra, APRN CNP [address] [place] [address] PCP - General Family Practice 09/21/20 Denise Woodson Ra, APRN CNP [address] [place] [address] Assigned PCP 07/17/20 Usha Simon APRN CNP 909 [facility] [id number] [place] [address] Nurse Practitioner Neurological Surgery 01/24/24 Dangelo Salinas MD [address] [place] [address] Neurology 01/27/24 Anastasia Stearns, RN Lead Scarfing Machine Operator 02/06/24 Germaine Lopez, W Community Health Worker Primary Care - CC 02/18/24 Robin Zepeda MD 909 [facility] [id number] [place] [address] Assigned Neuroscience Provider 03/08/24 05/07/24 documented as of this encounter
--- OUTSIDE RECORDS SUMMARY | 2024-07-16 13:56 | XMS_ITS | Encounter Summary ---
Author Organization [facility] Address [address] [place] [address] Care Team Providers Care Spot Welder Body Assembly Name Role Phone ShaunaWinston OD Unavailable [phone] Denise Woodson Ra, APRN CLASS 1 OWNER OPERATOR Unavailable [phone] Denise Woodson Ra, APRN CLASS 1 OWNER OPERATOR Primary Care Provid er Usha Simon APRN CLASS 1 OWNER OPERATOR Unavailable [phone] Dangelo Salinas MD Unavailable Anastasia Stearns RN Unavailable [phone] Germaine Lopez CHW Unavailable [phone] Robin Zepeda MD Unavailable [phone] Encounter Details Date Type Department Care Team [...] Never 02/28/2024 How often do you attend muslim or yarsani serv ices? 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 Not on file Not on file Not on file Not on file Not on file Not on file documented as of this encounter Plan of Treatment Upcoming Encounters Date Type Department Care Team (Late st Contact Info) Description 07/20/2024 12:00 PM HI LOW TRUCK DRIVER Virtual Visit [facility] [address] [place] [phone] Denise Woodson Ra, AIR FILLER [facility] [address] [place], [place] 2004268 07/30/2024 8:30 AM HI LOW TRUCK DRIVER Virtual Visit [facility] Neurology Clinic [address] [place] [phone] Randy Maradiaga, [address] [address] 08/04/2024 12:00 PM HI LOW TRUCK DRIVER Virtual Visit [facility] Mental Health and Addiction Clinic [address] [place] [address] Arthur Salas, [address] [address] 08/04/2024 3:30 PM HI LOW TRUCK DRIVER Virtual Visit [facility] [address] [place] [phone] Denise Woodson Ra, AIR FILLER CLASS 1 OWNER OPERATOR [address] [facility] [place], [place] 51988[address] 08/07/2024 1:00 PM HI LOW TRUCK DRIVER Appointment M [facility] Heart Care 6405 [facility] [address] [place] [phone] Danna Cardenas PA-C 6405 [place], [place] 918435 08/10/2024 12:30 PM HI LOW TRUCK DRIVER Virtual Visit [facility] Neuropsychology [address] [phone] Robin Zepeda MD [address] [place] [address] 08/17/2024 12:30 PM HI LOW TRUCK DRIVER Office Visit [facility] Neuropsychology [address] [phone] Robin Zepeda MD [address] [place] [address] Tulio Ogden, PhD [address] [address] 09/04/2024 11:00 AM HI LOW TRUCK DRIVER Office Visit [facility] [address] [place] [phone] Denise Woodson Ra, AIR FILLER CLASS 1 OWNER OPERATOR [address] [place], [place] 1024468 09/18/2024 1:00 PM HI LOW TRUCK DRIVER [facility] [address] [place] [phone] Denise Woodson Ra, AIR FILLER CLASS 1 OWNER OPERATOR [address] [place], [place] 4277168 09/29/2024 9:00 AM HI LOW TRUCK DRIVER Virtual Visit [facility] Neurology [address] 3rd [place] [address] Randy Maradiaga, [address] 957205 10/09/2024 1:20 PM HI LOW TRUCK DRIVER Office Visit [facility] Heart [place] 696305 [facility] [address] [place] [phone] Danna Cardenas PA-C 6405 [place] [address] 10/30/2024 4:00 PM HI LOW TRUCK DRIVER Virtual Visit [facility] Vascular [place] [address] [place] [phone] Lisa Zambrano MD [address] [place], [place] [address]6465 12/29/2024 12:45 PM CDT Office Visit [facility] Explore Pediatric Specialty Clinic [facility]0 [facility] Explorer [facility] 12th Flr,[place] [phone] Fabi Coates MD 420 [facility] 75 [place], [place] 3922[address] 12/29/2024 1:45 PM CDT Office Visit [facility] 2450 [facility] Explorer Clinic 12th [address],[place] [phone] Fabi Coates MD 420 [place] [address] [facility] 75 [place] [address] 06/01/2025 11:15 AM CDT Appointment [facility] Care Center Imaging [address] [place] [phone] Robin Zepeda MD [address] [place] [address] 06/04/2025 11:00 AM CDT Office Visit [facility] Neurosurgery Clinic [place] 909 [facility] 3rd [place] [address] Robin Zepeda MD [address] [place] [address] 538905 Usha Simon APRN CLASS 1 OWNER OPERATOR [address] 804595 documented as of this encounter Goals Goal [...] Health weekly - PT, OT and HEALTHCARE OR MEDICAL, continuing through [facility] [place]: - Continue following up with PCP: 09/04/2024 - Vascular Dr. Zambrano 05/01/24 - follow up recommended in 6 months: 11/11/24 TBD #[phone]. - call independently - MTM 05/25/2024, completed - Neurosurgery Dr. Zepeda, following up with GLASS SMOOTHER: 06/04/2025 11:00 AM (Arrive by 10:45 AM) [...] clinic with / after hours services available. Evaporative Cooler Installer will remain available as needed. documented as of this encounter Visit Diagnoses Not on filedocumented in this encounter Additional Health Concerns Active Problems Noted Date Diagnosed Date Increased risk of re-admission 02/18/2024 Assessment Noted Time PHQ-9 Depression Total Score: 5 03/17/20 24 9:45 AM CDT documented as of this encounter Care Teams Spot Welder Body Assembly Relationship Specialty Start Date End Date Winston Villatoro, AM[facility]IE [facility] [place] [address] [place] [address] PCP - Ophthalmology Ophthalmology 02/11/13 Denise Woodson Ra, APRN CNP [address] [place] [address] PCP - General Family Practice 09/21/20 Denise Woodson Ra, APRN CNP [address] [place] [address] Assigned PCP 07/17/20 Usha Simon APRN CNP 909 [facility] [id number] [place] [address] Nurse Practitioner Neurological Surgery 01/24/24 Dangelo Salinas MD [address] [place] [address] Neurology 01/27/24 Anastasia Stearns, RN Lead Evaporative Cooler Installer 02/06/24 Germaine Lopez, W Community Health Worker Primary Care - CC 02/18/24 Robin Zepeda MD 909 [facility] [id number] [place] [address] Assigned Neuroscience Provider 03/08/24 05/07/24 documented as of this encounter
--- OUTSIDE RECORDS SUMMARY | 2024-07-16 13:56 | XMS_ITS | Encounter Summary ---
Author Organization [place] Address [address] [place] [address] Care Team Providers Care Insurance Investigator Name Role Phone ShaunaWinston OD Unavailable [phone] Denise Woodson Ra, APRN WOOD LATHER Unavailable [phone] Denise Woodson Ra, APRN WOOD LATHER Primary Care Provid er Usha Simon APRN WOOD LATHER Unavailable [phone] Dangelo Salinas MD Unavailable Anastasia Stearns RN Unavailable [phone] Germaine Lopez CHW Unavailable [phone] Robin Zepeda MD Unavailable [phone] Reason for Referral * Consultation (Routine: Next available opening) - Pending Review Specialty Diagnoses / Procedures Referred By Nila shah Referred To Contact Genetics, Clinical Diagnoses Fibromuscular dysplasia (H) ASD (atrial septal defect) EDS (Lizy-Danlos syndrome) Lisa Zambrnao MD [address] [facility] [address] [place] [address] Phone: tel: fax: Referral ID Status Reason Start Date Expiration Date V isits Requested Visits Authorized [id number] Pending Review 05/01/2024 05/01/2025 1 1 Question Answer Reason for Referral: Cardiology Scheduling Instructions: [facility] will call you to coordinate your care as prescribed by your provider. If you don't hear from a reimbursement representative within 2 business days, please call [phone]. Additional Information: carries Dx of EDS , [...] plan with any benefit or coverage questions. [facility] will call you to coordinate your care as prescribed by your provider. If you don't hear from a reimbursement representative within 2 business days, please call [phone]. Reason for Visit * Reason Comments Consult Pt referred to [facility] b y Dr. Raul Hoyos for fibromuscular dysplasia. * Consultation (Routine: Next available opening) - Pending Review Specialty Diagnoses / Procedures Referred By Contac t Referred To Contact Cardiovascular Disease Diagnoses Fibromuscular dysplasia (H) Raul Hoyos MD [address] [facility] [place] [address] Phone: tel: fax: [facility] [place] [address] [place] [address] Phone: tel: fax: Referral ID Status Reason Start Date Expiration Date V isits Requested Visits Authorized [id number] Pending Review 04/14/2024 04/14/2025 1 1 Encounter Details Date Type Department Care Team (Latest Contact Info) Description 05/01/2024 10:30 AM CDT Office Visit [facility] [place] [address] [place] [phone] Lisa Zambrano MD [address] [place] [address] Fibromuscular dysplasia (H24) ?? on cerbral angio Rt ICA dissection noted 12/2023 at [facility] subsequent head and neck CTA negtaive (Primary Dx); Hyperlipidemia LDL goal <70; ASD (atrial septal defect) amplatzer septal occluder- serial #[id number] ( 06/2006); Cerebrovascular accident (CVA), unspecified mechanism (H) 12/2023 ? 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 Never 02/28/2024 Do [...] Answer Date Recorded PHQ-2 Score 1 04/14/2024 [place] [employer] - Occupational Stress [...] on file Legal Sex 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 LASTING ROOM SUPERVISOR Gender Identity Not on file Sexual [...] Zambrano MD - 05/01/2024 10:30 AM CDT [facility] VASCULAR [facility] INITIAL VASCULAR MEDICINE CONSULT ( New Patient visit) PRIMARY HEALTH CARE PROVIDER: Denise Woodson Ra, STAVE HEWER,WOOD LATHER REFERRING HEALTH CARE PROVIDER; Raul Hoyos MD REASON FOR CONSULT: Evaluation and management of FMD? With recent history of right ICA dissection noted on cerebral angiogram December 2023. 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 She underwent COL3A1 testing at [facility] which was negative in 2018 She is new to me reviewed available extensive records and recent imaging studies in the [facility] and Care Everywhere and updated [...] Past Surgical History: Procedure Laterality Date C SALT WASHER HARVESTING STATION PROCEDURE DATE: vag del. C SALT WASHER HARVESTING STATION PROCEDURE DATE: 2000 tubal ligation C SALT WASHER HARVESTING STATION PROCEDURE DATE: 1994 D&C CARDIAC SURGERY 06/2006 heart defect repair ESOPHAGOSCOPY, GASTROSCOPY, DUODENOSCOPY (EGD), COMBINED N/A 02/08/2021 Procedure: ESOPHAGOGASTRODUODENOSCOPY (EGD); Surgeon: Tuan Miller MD; Location: GI GI SURGERY 09/2020 gallbladder removed HC KNEE SCOPE,MED/LAT MENISECTOMY 08/04/13 LT HEART CATH, CLOSURE ATRIAL SEPTAL DEFECT 06/20/06 amplatzer septal occluder- serial #[id number] RW SALT WASHER HARVESTING STATION (ABSTRACTED) pneumonia several times SURGICAL PATHOLOGY EXAM [...] Not on file Occupational History 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 No Social [...] 10 min Stress: Stress Concern Present (02/28/2024) [place] [employer] [facility] - Occupational Stress Questionnaire Feeling of Stress : To some extent Social Connections: Socially Isolated (02/28/2024) Social Connection and Isolation Panel [NHANES] Frequency of Communication with Friends and Family: Once a week Frequency of Social Gatherings with Friends and Family: Never Attends Jewish Services: Never Active Member of Clubs or [...] angio Rt ICA dissection noted 12/2023 at [facility] subsequent head and neck CTA negative X 2 , CTA of the chest abdomen pelvis negative for FMD in other arterial territories - Adult Genetics & Metabolism Water Pollution Specialist Referral; Future 2. Hyperlipidemia LDL goal <70 3. ASD (atrial septal defect) amplatzer septal occluder- serial #[id number] ( 06/2006) - Adult Genetics & Metabolism Water Pollution Specialist Referral; Future 4. Cerebrovascular accident (CVA), unspecified mechanism (H) 12/2023 ? 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 She underwent subsequent CT of head and neck x 2 which were negative for FMD . Subsequent CTA chest abdomen pelvis no FMD changes. She has a hyperextensibility of the joints with positive thumb sign and elbow sign. In 2018 she was diagnosed EDS at [facility]. COL3A1 test was negative. She has a 3 grownup children. No previous organ rupture or blood vessel rupture. History of ASD which was closed in 2005 at [facility]. She was also doing deep neck massages for DJD of the spine for some time Currently taking aspirin 162 mg daily and tolerating Currently followed by neurology/stroke service Given her unusual clinical situation of dural aVF, ASD, FMD changes, EDS features she will benefit getting genetic testing arrange a referral to [facility] Continue aspirin 162 mg daily with [...] care, we will continue to supprt Alcon Martines Noah and the subsequent management of this/these conditions and with ongoing continuity of care for this/these conditions. Thank you for the consultation This note was dictated by utilizing Shopliment software Copy of this note to primary care physician and referring physician Lisa Zambrano MD,FAHA,FSVM,FNLA, FACP Vascular Medicine Clinical Hypertension Specialist Clinical Lipidologist documented in this encounter Plan of Treatment Upcoming Encounters Date Type Department Care Team (Late st Contact Info) Description 07/20/2024 12:00 PM LASTING ROOM SUPERVISOR Virtual Visit [facility] [address] [place] [address] Denise Woodson Ra, STAVE HEWER WOOD LATHER [address] [place] [address] 07/30/2024 8:30 AM LASTING ROOM SUPERVISOR Virtual Visit [facility] Neurology [address] 3rd [place] [phone] Randy Maradiaga, [address] [address] 08/04/2024 12:00 PM LASTING ROOM SUPERVISOR Virtual Visit [facility] [address] [place] [address] Arthur Salas, [address] [address] 08/04/2024 3:30 PM LASTING ROOM SUPERVISOR Virtual Visit [facility] [address] [place] [phone] Denise Woodson Ra, STAVE HEWER WOOD LATHER [address] [place], [place] [phone] 08/07/2024 1:00 PM LASTING ROOM SUPERVISOR Appointment [facility] [address] [facility] [address] [place] [phone] Danna Cardenas PA-C [address] [place] [address] 08/10/2024 12:30 PM LASTING ROOM SUPERVISOR Virtual Visit [facility] Neuropsychology [address] [phone] Robin Zepeda MD [address] [place] [address] 08/17/2024 12:30 PM LASTING ROOM SUPERVISOR Office Visit [facility] Neuropsychology [address] [phone] Robin Zepeda MD [address] [place] [address] Tulio Ogden, PhD [address] [address] 09/04/2024 11:00 AM LASTING ROOM SUPERVISOR Office Visit [facility] [address] [place] [phone] Denise Woodson Ra, STAVE HEWER WOOD LATHER [address] [place], [place] [phone] 09/18/2024 1:00 PM LASTING ROOM SUPERVISOR Office Visit [facility] [address] [place] [address] Denise Woodson , STAVE HEWER WOOD LATHER [address] [place], [place] [phone] 09/29/2024 9:00 AM LASTING ROOM SUPERVISOR Virtual Visit [facility] Neurology [address] 3rd [place] [phone] Randy Maradiaga, [address] [address] 10/09/2024 1:20 PM LASTING ROOM SUPERVISOR Office Visit [facility] Heart [place] [id number] [facility] [address] [place] [phone] Danna Cardenas PA-C [address] [place], [place] [address] 10/30/2024 4:00 PM LASTING ROOM SUPERVISOR Virtual Visit [facility] Vascular [address] [place] [phone] Lisa Zambrano MD [address] [place], [place] [address] 12/29/2024 12:45 PM CDT Office Visit [facility] [address] [place], [place] [address]e Explorer [address] [phone] Fabi Coates MD [address] [place] [address] 12/29/2024 1:45 PM CDT Office Visit [facility] [address] [place], [place] [address] Explorer [address] [phone] Fabi Coates MD [address] [place] [address] [place] [address] 06/01/2025 11:15 AM CDT Appointment [facility] Imaging [address] [place] [address] [place] [address] Robin Zepeda MD [address] [place] [address] 06/04/2025 11:00 AM CDT Office Visit [facility] Neurosurgery Clinic [address] 3rd [place] [phone] Robin Zepeda MD [address] [place] [address]38[address] Usha Simon APRN WOOD LATHER [address] [place] [address] Scheduled Referrals Name Type Priority Associated Diagnoses Orde r Schedule Adult Genetics & Metabolism Water Pollution Specialist Referral Referral Routine: Next available opening Fibromuscular dysplasia (H24) ?? 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 Zambrano 05/01/24 - follow up recommended in 6 months: 11/11/24 TBD #[phone]. - call independently - MTM 05/25/2024, completed - Neurosurgery Dr. Zepeda, following up with LAUNDROMAT MANAGER: 06/04/2025 11:00 AM (Arrive by 10:45 AM) Usha Simon APRN WOOD LATHER 2. I will take my medications as prescribed. 3. I will discuss, review, schedule and complete recommended overdue health maintenance with my Primary Care Provider. 4. I will contact my care team with questions, concerns, support needs. I will use the clinic as a resource and I understand I can contact my clinic with / after hours services available. Assembler Installer General will remain available as needed. documented as of this encounter Visit Diagnoses Diagnosis Fibromuscular dysplasia (H24) ?? on cerbral angio Rt ICA dissection noted 12/2023 at [facility] subsequent head and neck CTA negtaive- Primary Other specified disorders of arteries and arterioles Hyperlipidemia LDL goal <70 Other and unspecified hyperlipidemia ASD (atrial septal defect) amplatzer septal occluder- serial #[id number] ( 06/2006) Ostium secundum type atrial septal defect Cerebrovascular accident (CVA), unspecified mechanism (H) 12/2023 ? 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 documented in this encounter Additional Health Concerns Active Problems Noted Date Diagnosed Date Increased risk of re-admission 02/18/2024 Assessment Noted Time PHQ-9 Depression Total Score: 5 03/17/20 24 9:45 AM CDT documented as of this encounter Care Teams Insurance Investigator Relationship Specialty Start Date End Date Winston Villatoro OD [facility] [address] [place] [address] PCP - Ophthalmology Ophthalmology 02/11/13 Denise Woodson Ra, APRN WOOD LATHER [address] [place] [address] PCP - General Family Practice 09/21/20 Denise Woodson Ra, APRN WOOD LATHER [address] [address] [place] [address] Assigned PCP 07/17/20 Usha Simon APRN WOOD LATHER [address] [id number] Nurse Practitioner Neurological Surgery 01/24/24 Dangelo Salinas MD [address] [place] [address] Neurology 01/27/24 Anastasia Stearns, RN Lead Assembler Installer General 02/06/24 Germaine Lopez, W Community Health Worker Primary Care - CC 02/18/24 Robin Zepeda MD [address] [id number] Assigned Neuroscience Provider 03/08/24 05/07/24 documented as of this encounter
--- OUTSIDE RECORDS SUMMARY | 2024-07-16 13:56 | XMS_ITS | Encounter Summary ---
Author Organization [place] Address [address] [place] [address] Care Team Providers Care Record Maker Name Role Phone ShaunaWinston OD Unavailable [phone] Denise Woodson Ra, APRN MATERIAL REQUIREMENTS PLANNING MANAGER Unavailable [phone] Denise Woodson Ra, APRN MATERIAL REQUIREMENTS PLANNING MANAGER Primary Care Provid er Usha Simon APRN MATERIAL REQUIREMENTS PLANNING MANAGER Unavailable [phone] Dangelo Salinas MD Unavailable Anastasia Stearns RN Unavailable [phone] Germaine Lopez CHW Unavailable [phone] Robin Zepeda MD Unavailable [phone] Encounter Details Date Type Department Care Team [...] How often do you attend zoroastrian or temple serv ices? 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 Not on file Not on file Not on file Not on file Not on file Not on file Not on file documented as of this encounter Plan of Treatment Upcoming Encounters Date Type Department Care Team (Late st Contact Info) Description 07/20/2024 12:00 PM MIX CRUSHER OPERATOR Virtual Visit [facility] [address] [place] [phone] Denise Woodson Ra, BRIDGE TOLL COLLECTOR [facility] [address] [place], [place] [phone] 07/30/2024 8:30 AM MIX CRUSHER OPERATOR Virtual Visit [facility] Neurology Clinic [address] [place] [phone] Randy Maradiaga, [address] [address] 08/04/2024 12:00 PM MIX CRUSHER OPERATOR Virtual Visit [facility] [address] [place] [address] Arthur Salas, [address] [address] 08/04/2024 3:30 PM MIX CRUSHER OPERATOR Virtual Visit [facility] [address] [place] [phone] Denise Woodson Ra, BRIDGE TOLL COLLECTOR MATERIAL REQUIREMENTS PLANNING MANAGER [address] [address] [place], [place] [phone] 08/07/2024 1:00 PM MIX CRUSHER OPERATOR Appointment [facility] Heart Care [address] [facility] [address] [place] [phone] Danna Cardenas PA-C [address] [place], [place] 5637[address] 08/10/2024 12:30 PM MIX CRUSHER OPERATOR Virtual Visit [facility] Neuropsychology [address] [phone] Robin Zepeda MD [address] [place] [address] 08/17/2024 12:30 PM MIX CRUSHER OPERATOR Office Visit [facility] Neuropsychology [address] [phone] Robin Zepeda MD [address] [place] [address] Tulio Ogden, PhD [address] [address] 09/04/2024 11:00 AM MIX CRUSHER OPERATOR Office Visit [facility] [address] [place] [phone] Denise Woodson Ra, BRIDGE TOLL COLLECTOR MATERIAL REQUIREMENTS PLANNING MANAGER [address] [place], [place] [phone] 09/18/2024 1:00 PM MIX CRUSHER OPERATOR [facility] [address] [place] [phone] Denise Woodson Ra, BRIDGE TOLL COLLECTOR MATERIAL REQUIREMENTS PLANNING MANAGER [address] [place], [place] [phone] 09/29/2024 9:00 AM MIX CRUSHER OPERATOR Virtual Visit [facility] Neurology [address] 3rd [place] [phone] Randy Maradiaga, [address] [address] 10/09/2024 1:20 PM MIX CRUSHER OPERATOR Office Visit [facility] Heart [place] [address] [facility] [address] [place] [phone] Danna Cardenas PA-C [address] [place] [address] 10/30/2024 4:00 PM MIX CRUSHER OPERATOR Virtual Visit [facility] Vascular [place] [address] [place] [phone] Lisa Zambarno MD [address] [place], [place] [address] 12/29/2024 12:45 PM CDT Office Visit [facility] [address] Fl[address],[place] [phone] Fabi Coates MD [address] [facility] [address] [place], [place] 585[address] 12/29/2024 1:45 PM CDT [facility] Visit [facility] [address] [facility] [address],[place] [phone] Fabi Coates MD [address] [facility] [address] [place] [address] 06/01/2025 11:15 AM CDT Appointment [facility] Imaging [address] [place] [address] [place] [phone] Robin Zepeda MD [address] [place] [address] 1510[address] 06/04/2025 11:00 AM CDT Office Visit [facility] [place] [address] [facility] 3rd [place] [phone] Robin Zepeda MD [address] [place] [address] Usha Simon APRN MATERIAL REQUIREMENTS PLANNING MANAGER [address] 257[address] documented as of this encounter Goals Goal [...] Health weekly - PT, OT and CERTIFIED PERSONAL FINANCE COUNSELOR, continuing through [facility]: - Continue following up with PCP: 09/04/2024 - Vascular Dr. Zambrano 05/01/24 - follow up recommended in 6 months: 11/11/24 TBD #[phone]. - call independently - MTM 05/25/2024, completed - Neurosurgery Dr. Zepeda, following up with HISTORY DEPARTMENT CHAIR: 06/04/2025 11:00 AM (Arrive by 10:45 AM) [...] clinic with / after hours services available. Dragline Operator Helper will remain available as needed. documented as of this encounter Visit Diagnoses Not on filedocumented in this encounter Additional Health Concerns Active Problems Noted Date Diagnosed Date Increased risk of re-admission 02/18/2024 Assessment Noted Time PHQ-9 Depression Total Score: 5 03/17/20 24 9:45 AM CDT documented as of this encounter Care Teams Record Maker Relationship Specialty Start Date End Date Winston Villatoro, [facility] [place] [address] [place] [address] PCP - Ophthalmology Ophthalmology 02/11/13 Denise Woodson Ra, APRN CNP [address] [place] [address] PCP - General Family Practice 09/21/20 Denise Woodson Ra, APRN CNP [address] [place] [address] Assigned PCP 07/17/20 Usha Simon APRN CNP [address]09 [facility] [id number] [address] Nurse Practitioner Neurological Surgery 01/24/24 Dangelo Salinas MD [address] [place] [address] Neurology 01/27/24 Anastasia Stearns, RN Lead Dragline Operator Helper 02/06/24 Germaine Lopez, W Community Health Worker Primary Care - CC 02/18/24 Robin Zepeda MD [address] [facility] [id number] [place] [address] Assigned Neuroscience Provider 03/08/24 05/07/24 documented as of this encounter
--- OUTSIDE RECORDS SUMMARY | 2024-07-16 13:57 | XMS_ITS | Encounter Summary ---
Author Organization [place] Address [address] [place] [address]. [place] [address] Care Team Providers Care Heat Treater Head Name Role Phone ShaunaWinston OD Unavailable [phone] Denise Woodson Ra, APRN CRM COORDINATOR Unavailable + [phone] Denise Woodson Ra, APRN CRM COORDINATOR Primary Care Provid er Usha Simon APRN CRM COORDINATOR Unavailable + [phone] Dangelo Salinas MD Unavailable Anastasia Stearns RN Unavailable [phone] Germaine Lopez CHW Unavailable [phone] Robin Zepeda MD Unavailable [phone] Encounter Details Date Type Department Care Team (Late st Contact Info) Description 04/08/2024 [facility] [address] [place] [address] Denise Woodson Ra, APRN CRM COORDINATOR [address] [place] [address] Social History Tobacco Use Types [...] Never 02/28/2024 How often do you attend worship or adventist serv ices? 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 Faxed. Mailed. Qing Cardona Lead Carpet Technician [facility] Phoebe Gross * Telephone Encounter - Qing Copeland - 04/08/2024 1:42 PM CDT Placed form in provider's basket for review and signature. Qing Copeland Lead Carpet Technician [facility] Phoebe Gross * Telephone Encounter - Breana [...] Mail Is this the correct address?: Yes [facility] [address] and Patient Notified form requests are processed in 5-7 business days:Yes Could we send this information to you in Ultralifehart or would you prefer to receive a phone call?: Patient would prefer a phone call Okay to leave a detailed message?: Yes at Cell number on file: Telephone Information: Breana Howard Patient Rep. documented in this encounter Plan of Treatment Upcoming Encounters Date Type Department Care Team (Late st Contact Info) Description 07/20/2024 12:00 PM NUMERICAL CONTROL NESTING OPERATOR Virtual Visit [facility] [address] [place] [address] Denise Woodson Ra, CELL TENDER HELPER [facility] [address] [place] [address] [phone] 07/30/2024 8:30 AM NUMERICAL CONTROL NESTING OPERATOR Virtual Visit [facility] Neurology [address] [place] [phone] Randy Maradiaga, [address] [address] 08/04/2024 12:00 PM NUMERICAL CONTROL NESTING OPERATOR Virtual Visit [facility] Mental Health and Addiction [address] [place] [address] Arthur Salas, [address] [address] 08/04/2024 3:30 PM NUMERICAL CONTROL NESTING OPERATOR [facility] [address] [place] [phone] Denise Woodson Ra, CELL TENDER HELPER CRM COORDINATOR [address] [facility] [place] [address] 08/07/2024 1:00 PM NUMERICAL CONTROL NESTING OPERATOR Appointment [facility] Heart Care [address] [facility] [address] [place] [phone] Danna Cardenas PA-C 6405 [place], [place] 2[address]85 08/10/2024 12:30 PM NUMERICAL CONTROL NESTING OPERATOR Virtual Visit [facility] Neuropsychology [address] [phone] Robin Zepeda MD [address] [place] [address] 08/17/2024 12:30 PM NUMERICAL CONTROL NESTING OPERATOR Office Visit [facility] Neuropsychology [address] [phone] Robin Zepeda MD [address] [place] [address] Tulio Ogden, PhD [address] [address] 09/04/2024 11:00 AM NUMERICAL CONTROL NESTING OPERATOR Office Visit [facility] [address] [place] [phone] Denise Woodson Ra, CELL TENDER HELPER CRM COORDINATOR [address] [place], [place] 59[address] 09/18/2024 1:00 PM NUMERICAL CONTROL NESTING OPERATOR [facility] [address] [place] [phone] Denise Woodson Ra, CELL TENDER HELPER CRM COORDINATOR [address] [place] [address] 09/29/2024 9:00 AM NUMERICAL CONTROL NESTING OPERATOR Virtual Visit [facility] Neurology [address] 3rd [place] [phone] Randy Maradiaga, [address] 9[address] 10/09/2024 1:20 PM NUMERICAL CONTROL NESTING OPERATOR Office Visit [facility] Heart [facility] 6405 [facility] [address] [place] [phone] Danna Cardenas PA-C 6405 [place] [address] 10/30/2024 4:00 PM NUMERICAL CONTROL NESTING OPERATOR Virtual Visit [facility] Vascular [place] [address] [place] [phone] Lisa Zambrano MD [address] [place], [place] [address] 12/29/2024 12:45 PM CDT Office Visit [facility] [address] [place], [place] [address]e Explorer [address] [phone] Fabi Coates MD [address] [place] [address] 75 [place], [place] [address] 12/29/2024 1:45 PM CDT Office Visit [facility] [address] [place], [place] [address] Explorer [address] [phone] Fabi Coates MD 420 [facility] 75 [place] [address] 06/01/2025 11:15 AM CDT Appointment [facility] Imaging [address] [place] [address] [place] [phone] Robin Zepeda MD [address] [place] [address] 06/04/2025 11:00 AM CDT Office Visit [facility] Neurosurgery Clinic [address] 3rd [place] [phone] Robin Zepeda MD [address] [place] [address] Usha Simon APRN CRM COORDINATOR [address] [place] [address] documented as of this encounter Goals Goal [...] Mental Health weekly - PT, OT and FASHION DIRECTOR PARTY PLAN SALES, continuing through [facility] [place]: - Continue following up with PCP: 09/04/2024 - Vascular Dr. Zambrano 05/01/24 - follow up recommended in 6 months: 11/11/24 TBD #[phone]. - call independently - MTM 05/25/2024, completed - Neurosurgery Dr. Zepeda, following up with WHITE SUGAR BOILER: 06/04/2025 11:00 AM (Arrive by 10:45 AM) [...] clinic with / after hours services available. Patch Setter will remain available as needed. documented as of this encounter Visit Diagnoses Not on filedocumented in this encounter Additional Health Concerns Active Problems Noted Date Diagnosed Date Increased risk of re-admission 02/18/2024 Assessment Noted Time PHQ-9 Depression Total Score: 5 03/17/20 24 9:45 AM CDT documented as of this encounter Care Teams Heat Treater Head Relationship Specialty Start Date End Date Winston Villatoro OD [facility] [place] [address] [facility] [address] [place] [address] PCP - Ophthalmology Ophthalmology 02/11/13 Denise Woodson Ra, APRN CNP [address] [place] [address] PCP - General Family Practice 09/21/20 Denise Woodson Ra, APRN CNP [address] [place] [address] Assigned PCP 07/17/20 Usha Simon APRN CNP [address] [facility] [id number] [address] Nurse Practitioner Neurological Surgery 01/24/24 Dangelo Salinas MD [address] [place] [address] Neurology 01/27/24 Anastasia Stearns, RN Lead Patch Setter 02/06/24 Germaine Lopez, W Community Health Worker Primary Care - CC 02/18/24 Robin Zepeda MD [address] [place] [address] [address] Assigned Neuroscience Provider 03/08/24 05/07/24 documented as of this encounter
--- OUTSIDE RECORDS SUMMARY | 2024-07-16 13:57 | XMS_ITS | Encounter Summary ---
Author Organization [place] Address [address] [place] [address] Care Team Providers Care Palliative Care Nurse Name Role Phone Shauna Winston Se OD Unavailable [phone] Denise Woodson Ra, APRN MICROBIAL SPECIALIST Unavailable + [phone] Denise Woodson Ra LOADER OPERATOR MICROBIAL SPECIALIST Primary Care Provid er Usha Simon APRN MICROBIAL SPECIALIST Unavailable + [phone] Dangelo Salinas MD Unavailable Usha Simon APRN MICROBIAL SPECIALIST Unavailable Anastasia Stearns RN Unavailable Germaine Lopez CHW Unavailable [phone] Robin Zepeda MD Unavailable Lisa Zambrano MD Unavailable Raul Hoyos MD Unavailable Joya Lira [facility] Unavailable [phone] Joya Lira [facility] Unavailable [phone] Fabi Coates MD Unavailable [phone] Robin Zepeda MD Unavailable [phone] Danna Cardenas PA-C Unavailable [phone] Felicita Desai RN Unavailable Unavailab le Encounter Details Date Type Department Care Team (Late Contact Info) Description 01/27/2024 MyC Medical Advice [facility] Neurology [address] [phone] Phoebe Del Cid Social History Tobacco Use Types Packs/Day Years Used Date Smoking Tobacco: Never Smokeless Tobacco: Never Alcohol Use Standard Drinks/Week Comments Not Currently 0 (1 standard drink = 0.6 oz pur e alcohol) minimal PHQ-2 Answer Date Recorded PHQ-2 Score 0 07/27/2021 Adolescent Education Answer Date Record ed Getting School Help Needed Not on file 07/01 Comments No Sex and Gender Information Value Date Recorded Sex Assigned at Not on file Legal Sex 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 ELECTRIC CAR OPERATOR Gender Identity Not on file Sexual Orientation Not on file 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 Not on file Not on file Not on file Not on file Not on file Not on file documented as of this encounter Plan of Treatment Upcoming Encounters Date Type Department Care Team (Late Contact Info) Description 07/20/2024 12:00 PM ELECTRIC CAR OPERATOR Virtual Visit [facility] [address] [place] [address] Denise Woodson Ra, LOADER OPERATOR [facility] [address] [place] [address] 07/30/2024 8:30 AM ELECTRIC CAR OPERATOR Virtual Visit [facility] Neurology Clinic [address] [phone] Randy Maradiaga, [address] [address] 08/04/2024 12:00 PM ELECTRIC CAR OPERATOR Virtual Visit [facility] Addiction Clinic [address] [place] [address] Arthur Salas, [address] [address] 08/04/2024 3:30 PM ELECTRIC CAR OPERATOR [facility] [address] [place] [phone] Denise Woodson Ra, LOADER OPERATOR MICROBIAL SPECIALIST [address] [place] [address] 08/07/2024 1:00 PM ELECTRIC CAR OPERATOR Appointment [facility] Heart Care [address] [facility] [address] [facility] [address] [place] [phone] Danna Cardenas PA-C 6405 [place], [place] 6[address] 08/10/2024 12:30 PM ELECTRIC CAR OPERATOR Virtual Visit [facility] Neuropsychology [address] [phone] Robin Zepeda MD [address] [place] [address] 08/17/2024 12:30 PM ELECTRIC CAR OPERATOR Office Visit [facility] Neuropsychology [address] [phone] Robin Zepeda MD [address] [place] [address] Tulio Ogden, PhD [address] [address] 09/04/2024 11:00 AM ELECTRIC CAR OPERATOR Office Visit [facility] [address] [place] [phone] Denise Woodson Ra, LOADER OPERATOR MICROBIAL SPECIALIST [address] [place], [place] 5[address] 09/18/2024 1:00 PM ELECTRIC CAR OPERATOR [facility] [address] [place] [phone] Denise Woodson Ra, LOADER OPERATOR MICROBIAL SPECIALIST [address] [place], [place] [phone] 09/29/2024 9:00 AM ELECTRIC CAR OPERATOR Virtual Visit [facility] Neurology [place] [address] [facility] 3rd [place] [address] Randy Maradiaga, [address] 6725[address] 10/09/2024 1:20 PM ELECTRIC CAR OPERATOR Office Visit [facility] Heart [facility] 6405 [facility] [address] [place] [address] Danna Cardenas PA-C 6405 [place] [address] 10/30/2024 4:00 PM ELECTRIC CAR OPERATOR Virtual Visit [facility] Vascular [place] [address] [place] [phone] Lisa Zambrano MD [address] [place], [place] [address] 12/29/2024 12:45 PM CDT Office Visit [facility] [address] [place], [place] [address] Explorer [address] [phone] Fabi Coates MD 420 [facility] 75 [place], [place] [address] 12/29/2024 1:45 PM CDT Office Visit [facility] [address] [place], [place] [address] Explorer [address] [place] [address] Fabi Coates MD 420 [facility] 75 [place] [address] 06/01/2025 11:15 AM CDT Appointment M [facility] Imaging [address] [place] [phone] Robin Zepeda MD [address] [place] [address] 06/04/2025 11:00 AM CDT Office Visit [facility] Neurosurgery [address] 3rd [place] [phone] Robin Zepeda MD [address] [place] [address] Usha Simon APRN MICROBIAL SPECIALIST [address] [place] [address] 917035 documented as of this encounter Visit Diagnoses Not on filedocumented in this encounter Additional Health Concerns Assessment Noted Time PHQ-9 Depression Total Score: 0 06/23/20 21 4:11 PM CDT documented as of this encounter Care Teams Palliative Care Nurse Relationship Specialty Start Date End Date Winston Villatoro OD [facility] [place] [address] [facility] [address] [place] [address] PCP - Ophthalmology Ophthalmology 02/11/13 Denise Woodson Ra, APRN MICROBIAL SPECIALIST [address] [address] [facility] [place] [address] PCP - General Family Practice 09/21/20 Denise Woodson Ra, APRN MICROBIAL SPECIALIST [address] [place] [address] Assigned PCP 07/17/20 Usha Simon APRN MICROBIAL SPECIALIST [address] [address] Nurse Practitioner Neurological Surgery 01/24/24 Dangelo Salinas MD [address] [place] [address] Neurology 01/27/24 Usha Simon APRN MICROBIAL SPECIALIST [address] [place] [address] Assigned Neuroscience Provider 02/06/24 03/07/24 Anastasia Stearns, RN Lead Aircraft Cleaning Supervisor 02/06/24 Germaine Lopez, W Community Health Worker Primary Care - CC 02/18/24 Robin Zepeda MD [address] [place] [address] Assigned Neuroscience Provider 03/08/24 05/07/24 Lisa Zambrano MD [address] [place] [address] Assigned Heart and Vascular Provider 05/08/24 07/07/24 Raul Hoyos MD [address] [place] [address] Assigned Neuroscience Provider 05/08/24 07/07/24 Joya Lira [facility] [address] [place] [address] Pharmacist Pharmacist 05/25/24 Joya Lira RPH [address] [place] [address] Assigned MTM Pharmacist 06/08/24 Fabi Coates MD 420 [facility] 75 [place], [place] [address] Genetics, Clinical 06/18/24 Robin Zepeda MD 909 [facility] BR1370LD [place], [place] 5018[address] Assigned Neuroscience Provider 07/08/24 Danna Cardenas PA-C 6405 [place], [place] 0[address] Assigned Heart and Vascular Provider 07/08/24 Felicita Desai, RN Lead Aircraft Cleaning Supervisor 07/14/24 documented as of this encounter
--- OUTSIDE RECORDS SUMMARY | 2024-07-16 13:57 | XMS_ITS | Encounter Summary ---
Author Organization [place] Address [address] [place] [address]. [place] [address] Care Team Providers Care Solar Energy Technician Name Role Phone ShaunaWinston OD Unavailable [phone] Denise Woodson Ra, APRN SYSTEMS ENGINEERING MANAGER Unavailable [phone] Denise Woodson Ra, APRN SYSTEMS ENGINEERING MANAGER Primary Care Provid er Usha Simon APRN SYSTEMS ENGINEERING MANAGER Unavailable [phone] Dangelo Salinas MD Unavailable Anastasia Stearns RN Unavailable [phone] Germaine Lopez CHW Unavailable [phone] Robin Zepeda MD Unavailable Reason for Visit * Reason Onset Date Comments Referral 04/14/2024 Pt referred to [facility] by Dr. Raul Hoyos for fibromuscular dysplasia. Encounter Details Date Type Department Care Team (Late st Contact Info) Description 04/14/[address] [facility] Vascular Clinic [place] [address] [place] [address] Nurse, [facility] Referral (Pt referred to [facility] by Dr. Raul Hoyos for fibromuscular [...] How often do you attend catholic or adventist serv ices? 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 * Telephone Encounter - Allison Blanco RN - 04/14/2024 10:58 AM CDT Referral received via [employer] on 04/14/24. Pt referred to [facility] by Dr. Raul Hoyos for fibromuscular dysplasia. Routing to scheduling to coordinate the following: NEW VASCULAR PATIENT consult with Vascular Medicine Please schedule this at next available Appt note: Pt referred to [facility] by Dr. Raul Hoyos for fibromuscular dysplasia. documented in this encounter Plan of Treatment Upcoming Encounters Date Type Department Care Team (Late st Contact Info) Description 07/20/2024 12:00 PM EXHIBITION CARVER Virtual Visit [facility] [address] [place] [phone] Denise Woodson Ra, DIGITAL MEDIA PRODUCER SYSTEMS ENGINEERING MANAGER [address] [place] [address] 07/30/2024 8:30 AM EXHIBITION CARVER Virtual Visit [facility] Neurology Clinic [address] 3rd [place] [address] Randy Maradiaga, [address] [address] 08/04/2024 12:00 PM EXHIBITION CARVER Virtual Visit [facility] Mental Health and Addiction Clinic [address] [place] [address] Arthur Salas, [place] [address] [address] [place], [place] [address] 08/04/2024 3:30 PM EXHIBITION CARVER [facility] [address] [place] [phone] Denise Woodson Ra, DIGITAL MEDIA PRODUCER SYSTEMS ENGINEERING MANAGER [address] [place], [place] [address] 08/07/2024 1:00 PM EXHIBITION CARVER Appointment [facility] Heart Care [address] [facility] [address] [place] [address] Danna Cardenas, PA-C 6405 [place], [place] 26[address] 08/10/2024 12:30 PM EXHIBITION CARVER Virtual Visit [facility] Neuropsychology [address] [phone] Robin Zepeda MD [address] [place] [address] 08/17/2024 12:30 PM EXHIBITION CARVER Office Visit [facility] Neuropsychology [address] [phone] Robin Zepeda MD [address] [place] [address]359[address] Tuilo Ogden, PhD [address] [address] 09/04/2024 11:00 AM EXHIBITION CARVER Office Visit [facility] [address] [place] [phone] Denise Woodson Ra, DIGITAL MEDIA PRODUCER SYSTEMS ENGINEERING MANAGER [address] [place] [address] 09/18/2024 1:00 PM EXHIBITION CARVER Office Visit [facility] [address] [place] [address] Denise Woodson Ra, DIGITAL MEDIA PRODUCER SYSTEMS ENGINEERING MANAGER [address] [place] [address] 09/29/2024 9:00 AM EXHIBITION CARVER Virtual Visit [facility] Neurology Clinic [address] [phone] Randy Maradiaga DO [address] [place] [address] 319875 10/09/2024 1:20 PM EXHIBITION CARVER Office [facility] Heart [facility] [place] [address] [place] [phone] Danna Cardenas PA-C [address] [facility] [place] [address] 10/30/2024 4:00 PM EXHIBITION CARVER Virtual Visit [facility] [place] [address] [place] [phone] Lisa Zambrano MD [address] [place] [address] 12/29/2024 12:45 PM CDT Office Visit [facility]ty Clinic [address] [place] [address] [phone] Fabi Coates MD [address] [place] [address]84[address] 12/29/2024 1:45 PM CDT Office Visit [facility] [address] [place] [phone] Fabi Coates MD [address] [place] [address] 06/01/2025 11:15 AM CDT Appointment [facility] [place] [facility] [address] [place] [phone] Robin Zepeda MD 909 [facility]2121[address]J [place] [address] 06/04/2025 11:00 AM CDT Office [facility] Neurosurgery Clinic [address] 3rd [place] [address] Robin Zepeda MD [address] [place] [address] Usha Simon APRN SYSTEMS ENGINEERING MANAGER [address] [place] [address] documented as of this encounter Goals Goal [...] Mental Health weekly - PT, OT and ALLOCATION ANALYST, continuing through [facility] [place]: - Continue following up with PCP: 09/04/2024 - Vascular Dr. Zambrano 05/01/24 - follow up recommended in 6 months: 11/11/24 TBD #[phone]. - call independently - MTM 05/25/2024, completed - Neurosurgery Dr. Zepeda, following up with LIVE IN HOUSEKEEPER: 06/04/2025 11:00 AM (Arrive by 10:45 AM) Usha Simon APRN SYSTEMS ENGINEERING MANAGER 2. I will take my medications as prescribed. 3. I will discuss, review, schedule and complete recommended overdue health maintenance with my Primary Care Provider. 4. I will contact my care team with questions, concerns, support needs. I will use the clinic as a resource and I understand I can contact my clinic with 24/7 after hours services available. Flying I Instructor will remain available as needed. documented as of this encounter Visit Diagnoses Not on filedocumented in this encounter Additional Health Concerns Active Problems Noted Date Diagnosed Date Increased risk of re-admission 02/18/2024 Assessment Noted Time PHQ-9 Depression Total Score: 5 03/17/20 24 9:45 AM CDT documented as of this encounter Care Teams Solar Energy Technician Relationship Specialty Start Date End Date Winston Villatoro OD [facility] [place] [address] [place] [address] PCP - Ophthalmology Ophthalmology 02/11/13 Denise Woodson Ra, DIGITAL MEDIA PRODUCER SYSTEMS ENGINEERING MANAGER [address] [place] [address] PCP - General Family Practice 09/21/20 Denise Woodson Ra DIGITAL MEDIA PRODUCER SYSTEMS ENGINEERING MANAGER [address] [place] [address] Assigned PCP 07/17/20 Usha Simon APRN SYSTEMS ENGINEERING MANAGER [address] 5959[address] Nurse Practitioner Neurological Surgery 01/24/24 Dangelo Salinas MD [address] [place] [address] Neurology 01/27/24 Anastasia Stearns, RN Lead Flying I Instructor 02/06/24 Germaine Lopez, CHW Community Health Worker Primary Care - CC 02/18/24 Robin Zepeda MD [address] [address] Assigned Neuroscience Provider 03/08/24 05/07/24 documented as of this encounter
--- OUTSIDE RECORDS SUMMARY | 2024-07-16 13:57 | XMS_ITS | Encounter Summary ---
Author Organization [facility] Address [address] [place] [address] Care Team Providers Care Swing Saw Operator Name Role Phone ShaunaWinston OD Unavailable [phone] Denise Woodson Ra, APRN ASSOCIATE PROGRAMMER Unavailable + [phone] Denise Woodson Ra, APRN ASSOCIATE PROGRAMMER Primary Care Provid er Usha Simon APRN ASSOCIATE PROGRAMMER Unavailable Dangelo Salinas MD Unavailable Anastasia Stearns RN Unavailable Germaine Lopez CHW Unavailable [phone] Robin Zepeda MD Unavailable [phone] Lisa Zambrano MD Unavailable [phone] Raul Hoyos MD Unavailable Joya Lira [facility] Unavailable [phone] Joya Lira [facility] Unavailable [phone] Fabi Coates MD Unavailable [phone] Robin Zepeda MD Unavailable [phone] Danna CardenasC Unavailable [phone] Felicita Desai RN Unavailable Unavailab le Encounter Details Date Type Department Care Team (Late st Contact Info) Description 04/02/2024 [facility] [address] 3rd [place] [address] Liliane Cobos Social History Tobacco [...] How often do you attend sikh or scientologist serv ices? 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 Not on file Not on file Not on file Not on file Not on file Not on file Not on file documented as of this encounter Plan of Treatment Upcoming Encounters Date Type Department Care Team (Late st Contact Info) Description 07/20/2024 12:00 PM SENIOR MARKETING SPECIALIST Virtual Visit [facility] [address] [place] [address] Denise Woodson Ra, ROOM CLEANER [facility] [address] [place] [address] 07/30/2024 8:30 AM SENIOR MARKETING SPECIALIST Virtual Visit [facility] Neurology Clinic [place] 909 [facility] 3rd [place] [phone] Randy Maradiaga DO 909 [place] [address] 08/04/2024 12:00 PM SENIOR MARKETING SPECIALIST Virtual Visit [facility] Mental Health and Addiction Clinic [address] [place] [address] [facility] [address] [place] [address] 08/04/2024 3:30 PM SENIOR MARKETING SPECIALIST Virtual Visit [facility] [address] [place] [address] Denise Woodson Ra, ROOM CLEANER ASSOCIATE PROGRAMMER [address] [place] [address] 08/07/2024 1:00 PM SENIOR MARKETING SPECIALIST Appointment [facility] Heart Care 6[address] [facility] [address] [place] [phone] Danna Cardenas, PA-C 6405 [place], [place] [address] 08/10/2024 12:30 PM SENIOR MARKETING SPECIALIST Virtual Visit [facility] Neuropsychology [place] 909 [facility] 3rd [place] [phone] Robin Zepeda MD 909 [facility] RV5713IE [place] [address] 08/17/2024 12:30 PM SENIOR MARKETING SPECIALIST Office Visit [facility] Neuropsychology [address] [phone] Robin Zepeda MD [address] [place] [address] [id number] [place] [address] Tulio Ogden, PhD [address] [address] 09/04/2024 11:00 AM SENIOR MARKETING SPECIALIST Office Visit [facility] [address] [place] [phone] Denise Woodson Ra, ROOM CLEANER ASSOCIATE PROGRAMMER [address] [place], [place] [id number] 09/18/2024 1:00 PM SENIOR MARKETING SPECIALIST Office Visit [facility] [address] [place] [phone] Denise Woodson Ra, ROOM CLEANER ASSOCIATE PROGRAMMER [address] [place], [place] [phone] 09/29/2024 9:00 AM SENIOR MARKETING SPECIALIST Virtual Visit [facility] Neurology Clinic [address] [phone] Randy Maradiaga, [address] [place] [address] 10/09/2024 1:20 PM SENIOR MARKETING SPECIALIST Office Visit [facility] Heart [facility] 6405 [facility] [address] [place] [phone] Danna Cardenas PA-C 7915 [place], [place] 4[address] 10/30/2024 4:00 PM SENIOR MARKETING SPECIALIST Virtual Visit [facility] V[facility] [place] [address] [place] [address] Lisa Zambrano MD [address] [place] [address] 12/29/2024 12:45 PM CDT Office Visit [facility] [address] [place] [address] Ave Explorer [address] [phone] Fabi Coates MD [address] [place] [address] 12/29/2024 1:45 PM CDT Office Visit [facility]ty [facility] [address] [place] [address] Ave Explorer [address] [phone] Fabi Coates MD [address] [place] [address] 06/01/2025 11:15 AM CDT Appointment [facility] [address] [facility] [address] [place] [phone] Robin Zepeda MD [address] [place] [address] 06/04/2025 11:00 AM CDT Office Visit [facility] Neurosurgery [address] 3rd [place] [phone] Robin Zepeda MD [address] [place] [address] Usha Simon APRN [address] 910575 documented as of this encounter Goals Goal [...] Mental Health weekly - PT, OT and SEASONING MIXER, continuing through [facility] [place]: - Continue following up with PCP: 09/04/2024 - Vascular Dr. Zambrano 05/01/24 - follow up recommended in 6 months: 11/11/24 TBD #[phone]. - call independently - MTM 05/25/2024, completed - Neurosurgery Dr. Zepeda, following up with TEACHER ASSISTANT: 06/04/2025 11:00 AM (Arrive by 10:45 AM) [...] clinic with 24/7 after hours services available. Silver Service Waiter will remain available as needed. documented as of this encounter Visit Diagnoses Not on filedocumented in this encounter Additional Health Concerns Active Problems Noted Date Diagnosed Date Increased risk of re-admission 02/18/2024 Assessment Noted Time PHQ-9 Depression Total Score: 5 03/17/20 24 9:45 AM CDT documented as of this encounter Care Teams Swing Saw Operator Relationship Specialty Start Date End Date Winston Villatoro OD [facility] Handley [address] [facility] [address] [place] [address] PCP - Ophthalmology Ophthalmology 02/11/13 Denise Woodson Ra, APRN ASSOCIATE PROGRAMMER [address] [place] [address] PCP - General Family Practice 09/21/20 Denise Woodson Ra, APRN ASSOCIATE PROGRAMMER [address] [place] [address] Assigned PCP 07/17/20 Usha Simon APRN ASSOCIATE PROGRAMMER [address] 179635 Nurse Practitioner Neurological Surgery 01/24/24 Dangelo Salinas MD [address] [place], [place] [id number] Neurology 01/27/24 Anastasia Stearns, RN Lead Silver Service Waiter 02/06/24 Germaine Lopez, W Community Health Worker Primary Care - CC 02/18/24 Robin Zepeda MD [address] 881105 Assigned Neuroscience Provider 03/08/24 05/07/24 Lisa Zambrano MD [address] [place] [address] Assigned Heart and Vascular Provider 05/08/24 07/07/24 Raul Hoyos MD [address] 008435 Assigned Neuroscience Provider 05/08/24 07/07/24 Joya Lira [facility] [address] [place] [address] Pharmacist Pharmacist 05/25/24 Joya Lira [facility] [address] [place] [address] Assigned MTM Pharmacist 06/08/24 Fabi Coates MD [address] [place] [address] 75 [place] [address] Genetics, Clinical 06/18/24 Robin Zepeda MD 909 [facility]2121[place], [place] 543365 Assigned Neuroscience Provider 07/08/24 Danna Cardenas PA-C 6405 [place] [address] Assigned Heart and Vascular Provider 07/08/24 Felicita Desai RN Lead Silver Service Waiter 07/14/24 documented as of this encounter
--- OUTSIDE RECORDS SUMMARY | 2024-07-16 13:57 | XMS_ITS | Encounter Summary ---
Author Organization [facility] Address [address] [place] [address] Care Team Providers Care Human Resources Analyst Name Role Phone ShaunaWinston OD Unavailable [phone] Denise Woodson Ra, APRN STEMMING MACHINE OPERATOR Unavailable [phone] Denise Woodson Ra, APRN STEMMING MACHINE OPERATOR Primary Care Provid er Usha Simon APRN STEMMING MACHINE OPERATOR Unavailable [phone] Dangelo Salinas MD Unavailable Anastasia Stearns RN Unavailable [phone] Germaine Lopez CHW Unavailable [phone] Robin Zepeda MD Unavailable [phone] Reason for Referral * Rehab Therapy Physical Therapy (Routine: Next available opening) - Pending Review Specialty Diagnoses / Procedures Referred By Contlandon t Referred To Contact Diagnoses History of CVA (cerebrovascular accident) Raul Hoyos MD 909 [facility] [id number] [place] [address] Phone: tel: fax: Referral ID Status Reason Start Date Expiration Date V isits Requested Visits Authorized [id number] Pending Review 04/14/2024 04/14/2025 1 1 Question Answer Course of Action: Evaluation and Treatment Specialty Services: Per Associated Diagnosis Scheduling Instructions: [facility] will call you to coordinate your care as prescribed by your provider. If you don't hear from a employee relations representative within 2 business days, please call . Additional Information: Stroke - shoulder R Comments Please be aware that coverage of these services is subject to the terms and limitations of your health insurance plan. Call member services at your health plan with any benefit or coverage questions. [facility] will call you to coordinate your care as prescribed by your provider. If you don't hear from a employee relations representative within 2 business days, please call . * Consultation (Routine: Next available opening) - Pending Review Specialty Diagnoses / Procedures Referred By Contac t Referred To Contact Cardiovascular Disease Diagnoses Fibromuscular dysplasia (H) Raul Hoyos MD [address] [place] [address] Phone: tel: fax: [facility] Vascular Clinic [place] [address] [address] Cardona [address] [place] [address] Phone: tel: fax: Referral ID Status Reason Start Date Expiration Date V isits Requested Visits Authorized [id number] Pending Review 04/14/2024 04/14/2025 1 1 Question Answer Preferred Location: [facility] Scheduling Instructions: Please call to schedule [...] Description 04/14/2024 9:30 AM CDT Virtual Visit [facility] Neurology Clinic [address] 3rd [place] [address] Raul Hoyos MD [address] [place] [address], [place] [address] History of CVA (cerebrovascular accident) (Primary Dx); Fibromuscular dysplasia (H) Social History Tobacco Use Types Packs/Day [...] How often do you attend protestant or taoism serv ices? Never 02/28/2024 Do [...] Answer Date Recorded PHQ-2 Score 1 04/14/2024 [facility] [...] on file Legal Sex 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 COTTAGE MASTER Gender Identity Not on file Sexual Orientation [...] Encounter Procedures Vascular Medicine Referral Physical Therapy Tree Killer Referral No follow up with me - will follow up with PCP Stroke & Endovascular RN Care Coordinators: Stacey Kelley, RN, BSN Meche De La Cruz, RN, CNRN, SCRN If you have any questions please contact the RN Care Coordinators at [phone], option [phone]. Thank you for choosing [facility] for your health care needs. documented in this encounter Progress Notes * Ralu Hoyos MD - 04/14/2024 9:30 AM CDT Virtual Visit Details Type of service: Video Visit Originating Location (pt. Location): Home Distant Location (provider location): Off-site Platform used for Video Visit: AmWell * Raul Hoyos MD - 04/14/2024 9:30 AM CDT Images from the original note were not included. [facility] [address] [facility] [phone] April 14, 2024 Alcon Zamora 1805 [facility] [address] TOTAL 46 Video visit: 9:33-9:59 = 26 [...] R shoulder pain. She has OT and PRINTING ESTIMATOR. I re-ordered PT so she can get [...] with a complex medical history including Ehler Stevekais has a history of luis-procedural strokes. She [...] Encounter Procedures Vascular Medicine Referral Physical Therapy Tree Killer Referral Brain MRI Impression: 1. No acute [...] 04/14/2024 9:30 AM CDT Current patient location: [address] [place] [address] Is the patient currently in the state of [place]? YES Visit mode:VIDEO If the visit is dropped, the patient can be reconnected by: TELEPHONE VISIT: Phone number: Telephone Information: Will anyone else be joining the visit? NO (If patient encounters technical issues they should call [phone]) How would you like to obtain [...] st Contact Info) Description 07/20/2024 12:00 PM COTTAGE MASTER Virtual Visit [facility] [address] [place] [phone] Denise Woodson Ra, AUTOMOTIVE TIRE TESTER STEMMING MACHINE OPERATOR [address] [place], [place] [phone] 07/30/2024 8:30 AM COTTAGE MASTER Virtual Visit [facility] Neurology [address] [place] [phone] Randy Maradiaga, [address] [address] 08/04/2024 12:00 PM COTTAGE MASTER Virtual Visit [facility] Mental Health and Addiction Clinic [address] [place] [address] Arthur Salas, [address] [address] 08/04/2024 3:30 PM COTTAGE MASTER Virtual Visit [facility] [address] [place] [phone] Denise Woodson Ra, AUTOMOTIVE TIRE TESTER STEMMING MACHINE OPERATOR [address] [place], [place] [phone] 08/07/2024 1:00 PM COTTAGE MASTER Appointment [facility] Heart Care 6[address] [facility] [address] [place] [phone] Danna Cardenas, PANilesC 6405 [place] [address] 08/10/2024 12:30 PM COTTAGE MASTER Virtual Visit [facility] Neuropsychology [address] [phone] Robin Zepeda MD [address] [place] [address]9075 08/17/2024 12:30 PM COTTAGE MASTER Office Visit [facility] Neuropsychology [address] [phone] Robin Zepeda MD [address] [place] [address] Tulio Ogden, PhD [address] [address] 09/04/2024 11:00 AM COTTAGE MASTER Office Visit [facility] [address] [place] [phone] Denise Woodson Ra, AUTOMOTIVE TIRE TESTER STEMMING MACHINE OPERATOR [address] [place] [address] 09/18/2024 1:00 PM COTTAGE MASTER Office Visit [facility] [address] [place] [phone] Denise Woodson Ra, AUTOMOTIVE TIRE TESTER STEMMING MACHINE OPERATOR [address] [place] [address] 09/29/2024 9:00 AM COTTAGE MASTER Virtual Visit [facility] Neurology [address] [phone] Randy Maradiaga DO [address] [place] [address] 10/09/2024 1:20 PM COTTAGE MASTER [facility] [address] [place] [phone] Danna Cardenas PA-C [address] [facility] [place] [address] 10/30/2024 4:00 PM COTTAGE MASTER Virtual Visit [facility] Vascular [facility] [address] [place] [phone] Lisa Zambrano MD [address] [place] [address] 12/29/2024 12:45 PM CDT Office Visit [facility] Pediatric Specialty Clinic [address] [place], [place] [address]e Explorer [address] [phone] Fabi Coates MD [address] [place] [address] 12/29/2024 1:45 PM CDT Office Visit [facility] Pediatric Specialty Clinic [address] [place], [place] [address]e [address] [phone] Fabi Coates MD [address] [place] [address] 06/01/2025 11:15 AM CDT Appointment [facility] Imaging [address] [place] [phone] Robin Zepeda MD 909 [id number] [place] [address] 06/04/2025 11:00 AM CDT Office Visit [facility] Neurosurgery Clinic [address] 3rd [place] [address] Robin Zepeda MD [address] [place] [address]64[address] Usha Simon APRN STEMMING MACHINE OPERATOR [address] [place] [phone] Scheduled Referrals Name Type Priority Associated Diagnoses Orde r Schedule Vascular Medicine Referral Referral Routine: Next available opening Fibromuscular dysplasia (H) Expected: 05/15/2024 (Approximate), Expires: 04/14/2025 Physical Therapy [place]iller Referral Referral Routine: Next available opening History [...] Mental Health weekly - PT, OT and PRINTING ESTIMATOR, continuing through [facility] [place]: - Continue following up with PCP: 09/04/2024 - Vascular Dr. Zambrano 05/01/24 - follow up recommended in 6 months: 11/11/24 TBD #[phone]. - call independently - MTM 05/25/2024, completed - Neurosurgery Dr. Zepeda, following up with OFFSET PRESS ASSISTANT: 06/04/2025 11:00 AM (Arrive by 10:45 [...] clinic with 24/7 after hours services available. Home Demonstrator will remain available as needed. documented as of this encounter Visit Diagnoses Diagnosis History of CVA (cerebrovascular accident)- Primary Transient ischemic attack (TIA), and cerebral infarction without residual deficits Fibromuscular dysplasia (H) Other specified disorders of arteries and arterioles documented in this encounter Additional Health Concerns Active Problems Noted Date Diagnosed Date Increased risk of re-admission 02/18/2024 Assessment Noted Time PHQ-9 Depression Total Score: 5 03/17/20 24 9:45 AM CDT documented as of this encounter Care Teams Human Resources Analyst Relationship Specialty Start Date End Date Winston Villatoro OD [facility] [address] [facility] [address] [place] [address] PCP - Ophthalmology Ophthalmology 02/11/13 Denise Woodson Ra, APRN STEMMING MACHINE OPERATOR [address] [place] [address] PCP - General Family Practice 09/21/20 Denise Woodson Ra, APRN STEMMING MACHINE OPERATOR [address] [place] [address] Assigned PCP 07/17/20 Usha Simon APRN STEMMING MACHINE OPERATOR 909 [id number] [place] [address] Nurse Practitioner Neurological Surgery 01/24/24 Dangelo Salinas MD [address] [place] [address] Neurology 01/27/24 Anastasia Stearns, RN Lead Home Demonstrator 02/06/24 Germaine Lopez, W Community Health Worker Primary Care - CC 02/18/24 Robin Zepeda MD [address] [place] [address] [address] Assigned Neuroscience Provider 03/08/24 05/07/24 documented as of this encounter
--- OUTSIDE RECORDS SUMMARY | 2024-07-16 13:57 | XMS_ITS | Encounter Summary ---
Author Organization [place] Address [address] [place] [address] Care Team Providers Care Regulatory Analyst Name Role Phone Yung Madrigal MD Unavailable Unavailable Winston Villatoro OD Unavailable [phone] Denise Woodson Ra, APRN ACTIMIZE ARCHITECT Unavailable + [phone] Denise Woodson Ra, APRN ACTIMIZE ARCHITECT Primary Care Provid er Usha Simon APRN ACTIMIZE ARCHITECT Unavailable Dangelo Salinas MD Unavailable Usha Simon APRN ACTIMIZE ARCHITECT Unavailable [phone] Anastasia Stearns RN Unavailable [phone] Germaine Lopez CHW Unavailable [phone] Robin Zepeda MD Unavailable Lisa Zambrano MD Unavailable Raul Hoyos MD Unavailable Joya Lira [facility] Unavailable [phone] Joya Lira [facility] Unavailable [phone] Fabi Coates MD Unavailable [phone] Robin Zepeda MD Unavailable [phone] Danna CardenasC Unavailable [phone] Lloyd, Felicita M RN Unavailable Unavailab le Reason for Visit * Reason Comments Medication Refill Encounter Details Date Type Department Care Team (Late st Contact Info) Description 01/07/2023 Refill [facility] [address] [place] [phone] Denise Woodson , APPLICATIONS MANAGER ACTIMIZE ARCHITECT [address] [place], [place] [id number] Medication Refill Social History Tobacco Use Types Packs/Day Years Used Date Smoking Tobacco: Never Smokeless Tobacco: Never Alcohol Use Standard Drinks/Week Comments Not Currently 0 (1 standard drink = 0.6 oz pur e alcohol) minimal PHQ-2 Answer Date Recorded PHQ-2 Score 0 07/27/2021 Comments No Sex and Gender Information Value Date Recorded Sex Assigned at Not on file Legal Sex 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 LINOLEUM PRINTER Gender Identity Not on file Sexual Orientation [...] as final attempt to schedule. Karla Villafanamount Puppet Engineer * Telephone Encounter - Karla Morales - 01/17/2023 8:59 AM CDT LVM requesting a call back for an appt (physical). One more attempt will be made. Karla Villafanamount Puppet Engineer * Telephone Encounter - Arianna Lo - 01/10/2023 3:33 PM CDT Sent [email or web address] message requesting a call back for an appt. Two more attempts will be made. Arianna Lo [place] Puppet Engineer * Telephone Encounter - Leslie Mcclellan, RN - 01/10/2023 10:45 AM CDT Routing [...] 0 0 0 Leslie Mcclellan RN, BSN [facility] documented in this encounter Plan of Treatment Upcoming Encounters Date Type Department Care Team (Late st Contact Info) Description 07/20/2024 12:00 PM LINOLEUM PRINTER Virtual Visit [facility] [address] [place] [address] Denise Woodson Ra, APPLICATIONS MANAGER ACTIMIZE ARCHITECT [address] [place] [address] 07/30/2024 8:30 AM LINOLEUM PRINTER Virtual Visit [facility] Neurology [address]rd [place] [phone] Randy Maradiaga, [address] [address] 08/04/2024 12:00 PM LINOLEUM PRINTER Virtual Visit [facility] Mental Health and Addiction [address] [place] [address] Arthur Salas, [address] [address] 08/04/2024 3:30 PM LINOLEUM PRINTER Virtual Visit [facility] [address] [place] [address] Denise Woodson Ra, APPLICATIONS MANAGER ACTIMIZE ARCHITECT [address] [place], [place] 7170468 08/07/2024 1:00 PM LINOLEUM PRINTER Appointment [facility] Heart Care 6405 [facility] [address] [place] [address] [phone] Danna Cardenas PA-C 6405 [place], [place] 367395 08/10/2024 12:30 PM LINOLEUM PRINTER Virtual Visit [facility] Neuropsychology [address] [phone] Robin Zepeda MD [address] [place] [address] 08/17/2024 12:30 PM LINOLEUM PRINTER Office Visit [facility] Neuropsychology [address] [phone] Robin Zepeda MD [address] [place] [address] 726135 Tulio Ogden, PhD [address] [address] 09/04/2024 11:00 AM LINOLEUM PRINTER Office Visit [facility] [address] [place] [address] Denise Woodson Ra, APPLICATIONS MANAGER ACTIMIZE ARCHITECT [address] [place], [place] 19285[address] 09/18/2024 1:00 PM LINOLEUM PRINTER Office Visit [facility] [address] [place] [phone] Denise Woodson Ra, APPLICATIONS MANAGER [facility] [address] [place], [place] 2883568 09/29/2024 9:00 AM LINOLEUM PRINTER Virtual Visit [facility] Neurology [address] 3rd [place] [address] Randy Maradiaga, [address] 4[address] 10/09/2024 1:20 PM LINOLEUM PRINTER Office Visit [facility] Heart [facility] 6405 [facility] [address] [place] [phone] Danna Cardenas PA-C 6405 [place] [address] 10/30/2024 4:00 PM LINOLEUM PRINTER Virtual Visit [facility] Vascular [place] [address] [place] [phone] Lisa Zambrano MD [address] [place], [place] 60[address]25 12/29/2024 12:45 PM CDT Office Visit [facility] [address] [place] [address],[place] [phone] Fabi Coates MD 420 [facility] 75 [place], [place] 14[address]15 12/29/2024 1:45 PM CDT Office Visit [facility] [address] [place], [place] [address]r,[place] [address] Fabi Coates MD [address] [facility] 75 [place] [address] 06/01/2025 11:15 AM CDT Appointment [facility] Imaging [address] [place] [phone] Robin Zepeda MD [address] [place] [address] 06/04/2025 11:00 AM CDT Office Visit [facility] Neurosurgery [address] 3rd [place] [address] Robin Zepeda MD [address] [place] [address] 895135 Usha Simon, BARRERA ACTIMIZE ARCHITECT [address] [place] [address] 161625 documented as of this encounter Visit Diagnoses Diagnosis Moderate persistent asthma without complication Unspecified asthma documented in this encounter Additional Health Concerns Assessment Noted Time PHQ-9 Depression Total Score: 0 06/23/20 21 4:11 PM CDT documented as of this encounter Care Teams Regulatory Analyst Relationship Specialty Start Date End Date Yung Madrigal MD RETIRED PCP - Orthopaedics Orthopedics 08/26/12 01/20/24 Winston Villatoro OD [facility] Rule [address] [place], [place] [id number] PCP - Ophthalmology Ophthalmology 02/11/13 Denise Woodson Ra, APPLICATIONS MANAGER ACTIMIZE ARCHITECT [address] [place] [address] PCP - General Family Practice 09/21/20 Denise Woodson Ra, APRN ACTIMIZE ARCHITECT [address] [place] [address] Assigned PCP 07/17/20 Usha Simon APRN ACTIMIZE ARCHITECT [address] [address] Nurse Practitioner Neurological Surgery 01/24/24 Dangelo Salinas MD [address] [place] [address] Neurology 01/27/24 Usha Simon APRN ACTIMIZE ARCHITECT [address] [address] Assigned Neuroscience Provider 02/06/24 03/07/24 Anastasia Stearns, RN Lead Lens Engraver 02/06/24 Germaine Lopez, W Community Health Worker Primary Care - CC 02/18/24 Robin Zepeda MD [address] [address] Assigned Neuroscience Provider 03/08/24 05/07/24 Lisa Zambrano MD [address] [place] [address] Assigned Heart and Vascular Provider 05/08/24 07/07/24 Raul Hoyos MD 909 [facility]2121CJ [place] [address] Assigned Neuroscience Provider 05/08/24 07/07/24 Joya Lira [facility] [address] [place] [address] Pharmacist Pharmacist 05/25/24 Joya Lira [facility] [address] [place] [address] Assigned MTM Pharmacist 06/08/24 Fabi Coates MD [address] [place] [address] 75 [place] [address] Genetics, Clinical 06/18/24 Robin Zepeda MD 909 [facility]2121CJ [place] [address] Assigned Neuroscience Provider 07/08/24 Danna Cardenas PANilesC 6405 [place] [address] Assigned Heart and Vascular Provider 07/08/24 Felicita Desai, RN Lead Lens Engraver 07/14/24 documented as of this encounter
--- OUTSIDE RECORDS SUMMARY | 2024-07-16 13:57 | XMS_ITS | Encounter Summary ---
Author Organization [place] Address [address] [place] [address] Care Team Providers Care Clay Worker Name Role Phone ShaunaWinston OD Unavailable [phone] Denise Woodson Ra, APRN WAISTLINE JOINER Unavailable + [phone] Denise Woodson Ra, APRN WAISTLINE JOINER Primary Care Provid er Usha Simon APRN WAISTLINE JOINER Unavailable Dangelo Salinas MD Unavailable Anastasia Stearns RN Unavailable [phone] Germaine Lopez CHW Unavailable [phone] Robin Zepeda MD Unavailable Lisa Zambrano MD Unavailable Raul Hoyos MD Unavailable Joya Lira [facility] Unavailable [phone] Joya Lira [facility] Unavailable Fabi Coates MD Unavailable [phone] Robin Zepeda MD Unavailable [phone] Danna CardenasC Unavailable [phone] Felicita Desai RN Unavailable Unavailab le Encounter Details Date Type Department Care Team (Late st Contact Info) Description 03/16/2024 My[facility] Neurology Clinic [address] 3rd [place] [address] Ora Bazan Social History Tobacco [...] How often do you attend gnosticism or temple serv ices? 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 Not on file Not on file Not on file Not on file Not on file Not on file documented as of this encounter Plan of Treatment Upcoming Encounters Date Type Department Care Team (Late st Contact Info) Description 07/20/2024 12:00 PM FREELANCE WEB DESIGNER Virtual Visit [facility] [address] [place] [address] Denise Woodson Ra, SECURITY DIRECTOR [facility] [address] [place] [address] 07/30/2024 8:30 AM FREELANCE WEB DESIGNER Virtual Visit [facility] Neurology Clinic [address]rd [place] [phone] Randy Maradiaga DO 909 [place] [address] 08/04/2024 12:00 PM FREELANCE WEB DESIGNER Virtual Visit [facility] Mental Health and Addiction Clinic [address] [place] [address] [facility] [address] [place] [address] 08/04/2024 3:30 PM FREELANCE WEB DESIGNER Virtual Visit [facility] [address] [place] [address] Denise Woodson Ra, SECURITY DIRECTOR WAISTLINE JOINER [address] [place] [address] 08/07/2024 1:00 PM FREELANCE WEB DESIGNER Appointment [facility] Heart Care [address] [facility] [address] [place] [address] [phone] Danna Cardenas PA-C 6405 [place] [address] 08/10/2024 12:30 PM FREELANCE WEB DESIGNER Virtual Visit [facility] Neuropsychology [address] [phone] Robin Zepeda MD [address] [place] [address] [id number] [place] [address] 08/17/2024 12:30 PM FREELANCE WEB DESIGNER Office Visit [facility] Neuropsychology [address] [phone] Robin Zepeda MD [address] [place] [address] [id number] [place] [address] Tulio Ogden, PhD [address] [address] 09/04/2024 11:00 AM FREELANCE WEB DESIGNER Office Visit [facility] [address] [place] [address] Denise Woodson Ra, SECURITY DIRECTOR WAISTLINE JOINER [address] [place], [place] 96[address]68 09/18/2024 1:00 PM FREELANCE WEB DESIGNER Office Visit [facility] [address] [place] [phone] Denise Woodson Ra, SECURITY DIRECTOR WAISTLINE JOINER [address] [place], [place] 4372268 09/29/2024 9:00 AM FREELANCE WEB DESIGNER Virtual Visit [facility] Neurology Clinic [address] [phone] Randy Maradiaga, [address] [place] [address] 10/09/2024 1:20 PM FREELANCE WEB DESIGNER Office Visit [facility] Heart [facility] 6405 [facility] [address] [place] [address] Danna Cardenas PA-C 6405 [place] [address] 10/30/2024 4:00 PM FREELANCE WEB DESIGNER Virtual Visit [facility] Vascular Clinic [place] [address] [place] [address] Lisa Zambrano MD [address] [place] [address] 12/29/2024 12:45 PM CDT Office Visit [facility] Pediatric Specialty Clinic [address] [place] [address] Ave [address] [phone] Fabi Coates MD [address] [place] [address] 219945 12/29/2024 1:45 PM CDT Office Visit [facility] Pediatric Specialty Clinic [address] [place], [place] [address]e Explorer [address] [phone] Fabi Coates MD [address] [place] [address] 595665 06/01/2025 11:15 AM CDT Appointment [facility] Imaging [address] [facility] [address] [place] [phone] Robin Zepeda MD [address] [place] [address] 635465 06/04/2025 11:00 AM CDT Office Visit [facility] Neurosurgery Clinic [address] 3rd [place] [phone] Robin Zepeda MD [address] [place] [address] Usah Simon APRN [address] [address] documented as of this encounter Goals Goal [...] Mental Health weekly - PT, OT and LODE MINER BLASTING, continuing through [facility] [place]: - Continue following up with PCP: 09/04/2024 - Vascular Dr. Zambrano 05/01/24 - follow up recommended in 6 months: 11/11/24 TBD #[phone]. - call independently - MTM 05/25/2024, completed - Neurosurgery Dr. Zepeda, following up with ELECTRO MECHANICAL DESIGNER: 06/04/2025 11:00 AM (Arrive by 10:45 AM) [...] clinic with 24/7 after hours services available. Multi Site Leasing Consultant will remain available as needed. documented as of this encounter Visit Diagnoses Not on filedocumented in this encounter Additional Health Concerns Active Problems Noted Date Diagnosed Date Increased risk of re-admission 02/18/2024 Assessment Noted Time PHQ-9 Depression Total Score: 16 024 3:27 PM CDT documented as of this encounter Care Teams Clay Worker Relationship Specialty Start Date End Date Winston Villatoro OD [facility] 701 [facility] [address] [place] [address] PCP - Ophthalmology Ophthalmology 02/11/13 Denise Woodson Ra SECURITY DIRECTOR WAISTLINE JOINER [address] [place] [address] PCP - General Family Practice 09/21/20 Denise Woodson Ra, APRN WAISTLINE JOINER [address] [place] [address] Assigned PCP 07/17/20 Usha Simon APRN WAISTLINE JOINER [address] [place] [address] 159065 Nurse Practitioner Neurological Surgery 01/24/24 Dangelo Salinas MD [address] [place], [place] [id number] Neurology 01/27/24 Anastasia Stearns, RN Lead Multi Site Leasing Consultant 02/06/24 Germaine Lopez, W Community Health Worker Primary Care - CC 02/18/24 Robin Zepeda MD [address] 224135 Assigned Neuroscience Provider 03/08/24 05/07/24 Lisa Zambrano MD [address] [place] 225075 Assigned Heart and Vascular Provider 05/08/24 07/07/24 Raul Hoyos MD [address] 704165 Assigned Neuroscience Provider 05/08/24 07/07/24 Joya Lira [facility] [address] [place] [address] Pharmacist Pharmacist 05/25/24 Joya Lira [facility] [address] [place] [address] Assigned MTM Pharmacist 06/08/24 Fabi Coates MD 420 [facility] 75 [place], [place] [address] Genetics, Clinical 06/18/24 Robin Zepeda MD 909 [facility]2121[place], [place] [address]65 Assigned Neuroscience Provider 07/08/24 Danna Cardenas PA-C 6405 [place] [address] Assigned Heart and Vascular Provider 07/08/24 Felicita Desai, RN Lead Multi Site Leasing Consultant 07/14/24 documented as of this encounter
--- OUTSIDE RECORDS SUMMARY | 2024-07-16 13:57 | XMS_ITS | Encounter Summary ---
Author Organization [place] Address [address] [place] [address] Care Team Providers Care Head Grease Maker Name Role Phone Shauna Winston Se OD Unavailable [phone] Denise Woodson Ra, APRN DJANGO DEVELOPER Unavailable + [phone] Denise Woodson Ra DATA SECURITY COORDINATOR DJANGO DEVELOPER Primary Care Provid er Usha Simon APRN DJANGO DEVELOPER Unavailable + [phone] Dangelo Salinas MD Unavailable Usha Simon APRN DJANGO DEVELOPER Unavailable Anastasia Stearns RN Unavailable [phone] Germaine Lopez CHW Unavailable [phone] Robin Zepeda MD Unavailable Lisa Zambrano MD Unavailable Raul Hoyos MD Unavailable Joya Lira [facility] Unavailable [phone] Joya Lira [facility] Unavailable [phone] Fabi Coates MD Unavailable [phone] Robin Zepeda MD Unavailable [phone] Danna Cardenas PA-C Unavailable [phone] Felicita Desai RN Unavailable Unavailab le Encounter Details Date Type Department Care Team (Late Contact Info) Description 01/29/2024 My[facility] [address] [address] Danya Restrepo, SAFETY LEADER Social History Tobacco Use Types Packs/Day Years [...] on file Legal Sex 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 ORACLE FUSION CONSULTANT Gender Identity Not on file Sexual Orientation Not on file 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 Not on file Not on file Not on file Not on file Not on file Not on file documented as of this encounter Plan of Treatment Upcoming Encounters Date Type Department Care Team (Late Contact Info) Description 07/20/2024 12:00 PM ORACLE FUSION CONSULTANT Virtual Visit [facility] [address] [place] [address] Denise Woodson Ra, DATA SECURITY COORDINATOR [facility] [address] [place] [address] 07/30/2024 8:30 AM ORACLE FUSION CONSULTANT Virtual Visit [facility] Neurology Clinic [address]rd [place] [phone] Randy Maradiaga, [address] [address] 08/04/2024 12:00 PM ORACLE FUSION CONSULTANT Virtual Visit [facility] Mental Health and Addiction Clinic [address] [address] Arthur Salas, [address] [place] [address] 08/04/2024 3:30 PM ORACLE FUSION CONSULTANT [facility] [address] [place] [phone] Denise Woodson Ra, DATA SECURITY COORDINATOR DJANGO DEVELOPER [address] [facility] [place] [address] 08/07/2024 1:00 PM ORACLE FUSION CONSULTANT Appointment [facility] Heart [facility] 6405 [facility] [address] [place] [phone] Danna Cardenas PA-C 6405 [place], [place] 521695 08/10/2024 12:30 PM ORACLE FUSION CONSULTANT Virtual Visit [facility] Neuropsychology [address] [phone] Robin Zepeda MD [address] [place] [address] 08/17/2024 12:30 PM ORACLE FUSION CONSULTANT Office Visit [facility] Neuropsychology [address] [phone] Robin Zepeda MD [address] [place] [address] [place] Ogden, PhD [address] [address] 09/04/2024 11:00 AM ORACLE FUSION CONSULTANT Office Visit [facility] [address] [place] [phone] Denise Woodson Ra, DATA SECURITY COORDINATOR DJANGO DEVELOPER [address] [place], [place] 98165[address] 09/18/2024 1:00 PM ORACLE FUSION CONSULTANT [facility] [address] [place] [phone] Denise Woodson Ra, DATA SECURITY COORDINATOR DJANGO DEVELOPER [address] [place], [place] 9021368 09/29/2024 9:00 AM ORACLE FUSION CONSULTANT Virtual Visit [facility] Neurology [address] 3rd [place] [address] Randy Maradiaga, [address] [address] 10/09/2024 1:20 PM ORACLE FUSION CONSULTANT Office Visit [facility] Heart [facility] 6405 [facility] [address] [place] [phone] Danna Cardenas PA-C 6405 [place] [address] 10/30/2024 4:00 PM ORACLE FUSION CONSULTANT Virtual Visit [facility] Vascular [place] [address] [place] [phone] Lisa Zambrano MD [address] [place], [place] [address]45 12/29/2024 12:45 PM CDT Office Visit [facility] Pediatric Specialty Clinic [address] [place], [place] [address]e Explorer [address] [phone] Fabi Coates MD [address] [place] [address] 75 [place], [place] 115305 12/29/2024 1:45 PM CDT Office Visit [facility] Pediatric Specialty Clinic [address] [place] [address] [address] Fabi Coates MD [address] [facility] 75 [place] [address] 06/01/2025 11:15 AM CDT Appointment [facility] Imaging [address] [place] [phone] Robin Zepeda MD [address] [place] [address] 06/04/2025 11:00 AM CDT Office Visit [facility] Neurosurgery Clinic [address] 3rd [place] [phone] Robin Zepeda MD [address] [place] [address] Usha Simon APRN DJANGO DEVELOPER [address] [place] [address] 310975 documented as of this encounter Visit Diagnoses Not on filedocumented in this encounter Additional Health Concerns Assessment Noted Time PHQ-9 Depression Total Score: 0 06/23/20 21 4:11 PM CDT documented as of this encounter Care Teams Head Grease Maker Relationship Specialty Start Date End Date Winston Villatoro OD [facility] [place] [address] [facility] [address] [place] [address] PCP - Ophthalmology Ophthalmology 02/11/13 Denise Woodson Ra, APRN DJANGO DEVELOPER [address] [place] [address] PCP - General Family Practice 09/21/20 Denise Woodson Ra, APRN DJANGO DEVELOPER [address] [place] [address] Assigned PCP 07/17/20 Usha Simon APRN DJANGO DEVELOPER [address] [address] Nurse Practitioner Neurological Surgery 01/24/24 Dangelo Salinas MD [address] [place] [address] Neurology 01/27/24 Usha Simon APRN DJANGO DEVELOPER [address] [place] [address] Assigned Neuroscience Provider 02/06/24 03/07/24 Anastasia Stearns, RN Lead Fisher Terrapin 02/06/24 Germaine Lopez, W Community Health Worker Primary Care - CC 02/18/24 Robin Zepeda MD [address] [place] [address] Assigned Neuroscience Provider 03/08/24 05/07/24 Lisa Zambrano MD [address] [place] [address] Assigned Heart and Vascular Provider 05/08/24 07/07/24 Raul Hoyos MD [address] [place] [address] Assigned Neuroscience Provider 05/08/24 07/07/24 Joya Lira [facility] [address] [place] [address] Pharmacist Pharmacist 05/25/24 Joya Lira [facility] [address] [place] [address] Assigned MTM Pharmacist 06/08/24 Fabi Coates MD 420 [facility] 75 [place], [place] 076685 Genetics, Clinical 06/18/24 Robin Zepeda MD 909 [facility] IU0316LA [place], [place] 9[address]605 Assigned Neuroscience Provider 07/08/24 Danna Cardenas PA-C 6405 [place], [place] 001115 Assigned Heart and Vascular Provider 07/08/24 Felicita Desai, RN Lead Fisher Terrapin 07/14/24 documented as of this encounter
--- OUTSIDE RECORDS SUMMARY | 2024-07-16 13:57 | XMS_ITS | Encounter Summary ---
Author Organization [place] Address [address] [place] [address] Care Team Providers Care Cosmetologist Apprentice Name Role Phone Shauna Winston Se OD Unavailable [phone] Denise Woodson Ra, APRN SPINNER IRON Unavailable + [phone] Denise Woodson Ra, APRN SPINNER IRON Primary Care Provid er Usha Simon APRN SPINNER IRON Unavailable + [phone] Dangelo Salinas MD Unavailable Anastasia Stearns RN Unavailable Germaine Lopez CHW Unavailable Robin Zepeda MD Unavailable Lisa Zambrano MD Unavailable Raul Hoyos MD Unavailable Joya Lira [facility] Unavailable [phone] Joya Lira [facility] Unavailable [phone] Fabi Coates MD Unavailable [phone] Robin Zepeda MD Unavailable [phone] Danna CardenasC Unavailable [phone] Felicita Desai RN Unavailable Unavailab le Reason for Visit * Reason Onset Date Comments Call Back 03/09/2024 Follow up appoin tment Encounter Details Date Type Department Care Team (Late st Contact Info) Description 03/09/[address] [facility] Neurology Clinic [address] 3rd [place] [address] Raul Hoyos MD [address] [place] [address] [id number] [place] [address] Call Back (Follow up appointment ) Social [...] How often do you attend christianity or latter day serv ices? 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 Germaine's call back #[phone] or she states may call patient to schedule if appropriate Action Taken: Message routed to: [facility] Neurology Travel Screening: Not Applicable documented in this encounter Plan of Treatment Upcoming Encounters Date Type Department Care Team (Late st Contact Info) Description 07/20/2024 12:00 PM CENTER MGR Virtual Visit [facility] [address] [place] [address] Denise Woodson Ra, SLIDE FORMING MACHINE TENDER [facility] [address] [place], [place] [address] 07/30/2024 8:30 AM CENTER MGR Virtual Visit [facility] Neurology Clinic [address] 3rd [place] [address] Randy Maradiaga, [address] [address] 08/04/2024 12:00 PM CENTER MGR Virtual Visit [facility] Mental Health and Addiction Clinic [address] [place] [address] Arthur Salas, [address] [address] 08/04/2024 3:30 PM CENTER MGR [facility] [address] [place] [phone] Denise Woodson Ra, SLIDE FORMING MACHINE TENDER [employer] [address] [place], [place] 5775[address] 08/07/2024 1:00 PM CENTER MGR Appointment [facility] Heart Care [address] [facility] [address] [place] [phone] Danna Cardenas PA-C 6405 [place], [place] 813235 08/10/2024 12:30 PM CENTER MGR Virtual Visit [facility] Neuropsychology [address] [phone] Robin Zepeda MD [address] [place] [address] 08/17/2024 12:30 PM CENTER MGR Office Visit [facility] Neuropsychology [address] [phone] Robin Zepeda MD [address] [place] [address] Tulio Ogden, PhD [address] [address] 09/04/2024 11:00 AM CENTER MGR [facility] [address] [place] [phone] Denise Woodson Ra, SLIDE FORMING MACHINE TENDER [employer] [address] [place], [place] 9743[address] 09/18/2024 1:00 PM CENTER MGR [facility] [address] [place] [phone] Denise Woodson Ra, SLIDE FORMING MACHINE TENDER [employer] [address] [place], [place] 6968568 09/29/2024 9:00 AM CENTER MGR Virtual Visit [facility] Neurology [place] 975979 [facility] 3rd [place] [phone] Randy Maradiaga, [address] 711555 10/09/2024 1:20 PM CENTER MGR Office Visit [facility] Heart [facility] 6405 [facility] [address] [place] [phone] Danna Cardenas PA-C 6405 [place] [address] 10/30/2024 4:00 PM CENTER MGR Virtual Visit [facility] Vascular [place] [address] [place] [phone] Lisa Zambrano MD [address] [place] [address] 12/29/2024 12:45 PM CDT Office Visit [facility] Explore Pediatric Specialty Clinic 2450 [facility] Clinic 12th Flr,[place] [phone] Fabi Coates MD 420 [facility] 75 [place], [place] [address] 12/29/2024 1:45 PM CDT Office Visit [facility] Explorer [facility] 2450 [facility] Explorer [facility] 12th Flr,[place] [address] Fabi Coates MD [address] [place] [address] [facility] 75 [place] [address] 06/01/2025 11:15 AM CDT Appointment [facility] Imaging [address] [place] [phone] Robin Zepeda MD [address] [place] [address] 06/04/2025 11:00 AM CDT Office Visit [facility] Neurosurgery Clinic [address] 3rd [place] [phone] Robin Zepeda MD [address] [place] [address] Usha Simon APRN [address] 437565 documented as of this encounter Goals Goal Patient Goal Type Associated Problems Recent Progress Patient-Stated? Author I would like additional resources and support to manage my health and prevent future avoidable ED visits/hospital admissions Care Plan Increased risk of re-admission 30%( 4 2:50 PM CDT) No Aanstasia Stearns, RN Note: Barriers: diagnosis of multiple, chronic, complex medical conditions, provider availability - wait time to complete appointments, etc. Strengths: motivated, engaged in care coordination Patient expressed understanding of goal: yes Action steps to achieve this goal: 1. I will follow up with my providers as scheduled/recommended - Mental Health weekly - PT, OT and LABORER COOK HOUSE, continuing through [facility] [place]: - Continue following up with PCP: 09/04/2024 - Vascular Dr. Zambrano 05/01/24 - follow up recommended in 6 months: 11/11/24 TBD #[phone]. - call independently - MTM 05/25/2024, completed - Neurosurgery Dr. Zepeda, following up with GAS PLUMBER: 06/04/2025 11:00 AM (Arrive by 10:45 AM) [...] clinic with 24/ after hours services available. Health Science Writer will remain available as needed. documented as of this encounter Visit Diagnoses Not on filedocumented in this encounter Additional Health Concerns Active Problems Noted Date Diagnosed Date Increased risk of re-admission 02/18/2024 Assessment Noted Time PHQ-9 Depression Total Score: 16 024 3:27 PM CDT documented as of this encounter Care Teams Cosmetologist Apprentice Relationship Specialty Start Date End Date Winston Villatoro, [facility] [address] [facility] [address] [place] [address] PCP - Ophthalmology Ophthalmology 02/11/13 Denise Woodson Ra, APRN SPINNER IRON [address] [place] [address] PCP - General Family Practice 09/21/20 Denise Woodson Ra, APRN CNP [address] [place] [address] Assigned PCP 07/17/20 Usha Simon APRN CNP [address]09 [facility] [id number] [place] [address] Nurse Practitioner Neurological Surgery 01/24/24 Dangelo Salinas MD [address] [place] [address] Neurology 01/27/24 Anastasia Stearns, RN Lead Health Science Writer 02/06/24 Germaine Lopez, [facility] Community Health Worker Primary Care - CC 02/18/24 Robin Zepeda MD [address] [address] Assigned Neuroscience Provider 03/08/24 05/07/24 Lisa Zambrano MD [address] [place], [place] [address] Assigned Heart and Vascular Provider 05/08/24 07/07/24 Raul Hoyos MD [address] 389925 Assigned Neuroscience Provider 05/08/24 07/07/24 Joya Lira Joleen [address] [address] Pharmacist Pharmacist 05/25/24 Joya Lira Joleen [address] [place] [address] Assigned MTM Pharmacist 06/08/24 Fabi Coates MD [address] [place] [address] [facility] 75 [place], [place] [address] MD Genetics, Clinical 06/18/24 Robin Zepeda MD [address] [facility] [id number] [address] Assigned Neuroscience Provider 07/08/24 Danna Cardenas PA-C [address] [place] [address] Assigned Heart and Vascular Provider 07/08/24 Felicita Desai RN Lead Health Science Writer 07/14/24 documented as of this encounter
--- OUTSIDE RECORDS SUMMARY | 2024-07-16 13:57 | XMS_ITS | Encounter Summary ---
Author Organization [place] Address [address] [place] [address]. [place] [address] Care Team Providers Care Dust Box Worker Name Role Phone Winston Villatoro Se OD Unavailable [phone] Denise Woodson Ra, APRN SOFTWARE ENGINEERING SPECIALIST Unavailable + [phone] Denise Woodson Ra TIP PUNCHER SOFTWARE ENGINEERING SPECIALIST Primary Care Provid er Usha Simon APRN SOFTWARE ENGINEERING SPECIALIST Unavailable + [phone] Dangelo Salinas MD Unavailable Anastasia Stearns RN Unavailable +[phone] Germaine Lopez CHW Unavailable +[phone] Robin Zepeda MD Unavailable [phone] Reason for Visit * Reason Comments Follow Up Encounter Details Date Type Department Care Team (Latest Contact Info) Description 04/13/2024 12:00 PM CDT Virtual Visit [facility] [address] [place] [address] Denise Woodson Ra, APRN SOFTWARE ENGINEERING SPECIALIST [address] [place] [address] Cerebrovascular accident (CVA), unspecified mechanism [...] How often do you attend episcopal or bahai serv ices? 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 How would you like to obtain your AVS? MyChart If the video visit is dropped, the invitation should be resent by: Text to cell phone: [phone] Will anyone else be joining your video [...] as of 03/17/24: 98 kg (216 lb). Juan M Rondon [...] st Contact Info) Description 07/20/2024 12:00 PM BUILDING TECH Virtual Visit [facility] [address] [place] [address] Denise Woodson Ra, APRN CNP [address] [place] [address] 07/30/2024 8:30 AM BUILDING TECH Virtual Visit [facility] Neurology Clinic [address]rd [place] [phone] Randy Maradiaga DO 909 [place] [address] 08/04/2024 12:00 PM BUILDING TECH Virtual Visit [facility] Mental Health and Addiction Clinic [address] [place] [address] [place] [address] [address] [place] [address] 08/04/2024 3:30 PM BUILDING TECH Virtual Visit [facility] [address] [place] [address] Denise Woodson Ra, TIP PUNCHER SOFTWARE ENGINEERING SPECIALIST [address] [place] [address] 08/07/2024 1:00 PM BUILDING TECH Appointment [facility] Heart Care 6405 [facility] [address] [place] [phone] Danna Cardenas PA-C [address] [place] [address] 08/10/2024 12:30 PM BUILDING TECH Virtual Visit [facility] Neuropsychology [address] [phone] Robin Zepeda MD [address] [place] [address] [id number] [place] [address] 08/17/2024 12:30 PM BUILDING TECH Office Visit [facility] Neuropsychology [address] [phone] Robin Zepeda MD [address] [place] [address] [id number] [place] [address] Tulio Ogden, PhD [address] [address] 09/04/2024 11:00 AM BUILDING TECH Office Visit [facility] [address] [place] [phone] Denise Woodson Ra, TIP PUNCHER SOFTWARE ENGINEERING SPECIALIST [address] [place], [place] 20[address] 09/18/2024 1:00 PM BUILDING TECH Office Visit [facility] [address] [place] [phone] Denise Woodson Ra, TIP PUNCHER SOFTWARE ENGINEERING SPECIALIST [address] [place], [place] 88434[address] 09/29/2024 9:00 AM BUILDING TECH Virtual Visit [facility] Neurology [address] [phone] Randy Maradiaga, [address] [place] [address] 10/09/2024 1:20 PM BUILDING TECH Office Visit [facility] Heart [facility] 6405 [facility] [address] [place] [phone] Danna Cardenas PA-C 6405 [place], [place] 8622[address] 10/30/2024 4:00 PM BUILDING TECH Virtual Visit [facility] Vascular Clinic [place] [address] [place] [address] Lisa Zambrano MD [address] [place] [address] 12/29/2024 12:45 PM CDT Office Visit [facility] [address] [place] [address] Ave [address] [phone] Fabi Coates MD [address] [place] [address] 490905 12/29/2024 1:45 PM CDT Office Visit [facility] [address] [place], [place] [address]e Explorer [address] [phone] Fabi Coates MD [address] [place] [address] 3[address] 06/01/2025 11:15 AM CDT Appointment [facility] Imaging [address] [facility] [address] [place] [phone] Robin Zepeda MD [address] [place] [address] 3[address] 06/04/2025 11:00 AM CDT Office Visit [facility] Neurosurgery Clinic [address] 3rd [place] [phone] Robin Zepeda MD [address] [place] [address] Usha Simon APRN [address] [address] documented as of this encounter Goals Goal [...] Mental Health weekly - PT, OT and TROUBLE LOCATER, continuing through [facility]: - Continue following up with PCP: 09/04/2024 - Vascular Dr. Zambrano 05/01/24 - follow up recommended in 6 months: 11/11/24 TBD #[phone]. - call independently - MTM 05/25/2024, completed - Neurosurgery Dr. Zepeda, following up with [employer] SALES REPRESENTATIVE: 06/04/2025 11:00 AM (Arrive by 10:45 AM) [...] clinic with 24/7 after hours services available. Sander Setter will remain available as needed. documented as of this encounter Visit Diagnoses Diagnosis Cerebrovascular accident (CVA), unspecified mechanism (H)- Primary documented in this encounter Additional Health Concerns Active Problems Noted Date Diagnosed Date Increased risk of re-admission 02/18/2024 Assessment Noted Time PHQ-9 Depression Total Score: 5 03/17/20 24 9:45 AM CDT documented as of this encounter Care Teams Dust Box Worker Relationship Specialty Start Date End Date Winston Villatoro OD [facility] 701 [facility] [address] [place] [address] PCP - Ophthalmology Ophthalmology 02/11/13 Denise Woodson Ra TIP PUNCHER SOFTWARE ENGINEERING SPECIALIST [address] [place] [address] PCP - General Family Practice 09/21/20 Denise Woodson Ra TIP PUNCHER SOFTWARE ENGINEERING SPECIALIST [address] [place] [id number] Assigned PCP 07/17/20 Usha Simon APRN SOFTWARE ENGINEERING SPECIALIST [address] [id number] Nurse Practitioner Neurological Surgery 01/24/24 Dangelo Salinas MD [address] [place] [address] Neurology 01/27/24 Anastasia Stearns, RN Lead Sander Setter 02/06/24 Germaine Lopez, CHW Community Health Worker Primary Care - CC 02/18/24 Robin Zepeda MD [address] [id number] Assigned Neuroscience Provider 03/08/24 05/07/24 documented as of this encounter
--- OUTSIDE RECORDS SUMMARY | 2024-07-16 13:57 | XMS_ITS | Encounter Summary ---
Author Organization [place] Address [address] [place] [address] Care Team Providers Care Engineer Rf Deployment Name Role Phone Yung Madrigal MD Unavailable Unavailable Winston Villatoro OD Unavailable [phone] Denise Woodson Ra, APRN STENCILER Unavailable + [phone] Denise Woodson Ra, APRN STENCILER Primary Care Provid er Usha Simon APRN STENCILER Unavailable Dangelo Salinas MD Unavailable Usha Simon APRN STENCILER Unavailable [phone] Anastasia Stearns RN Unavailable [phone] Germaine Lopez CHW Unavailable [phone] Robin Zepeda MD Unavailable Lisa Zambrano MD Unavailable Raul Hoyos MD Unavailable Joya Lira [facility] Unavailable [phone] Joya Lira [facility] Unavailable [phone] Fabi Coates MD Unavailable [phone] Robin Zepeda MD Unavailable [phone] Danna CardenasC Unavailable [phone] Lloyd, Felicita M RN Unavailable Unavailab le Encounter Details Date Type Department Care Team (Late Contact Info) Description 01/10/2023 MyC Medical Advice [facility] [address] [place] [phone] Arianna Lo Social History Tobacco Use Types Packs/Day Years Used Date Smoking Tobacco: Never Smokeless Tobacco: Never Alcohol Use Standard Drinks/Week Comments Not Currently 0 (1 standard drink = 0.6 oz pur e alcohol) minimal PHQ-2 Answer Date Recorded PHQ-2 Score 0 07/27/2021 Comments No Sex and Gender Information Value Date Recorded Sex Assigned at Not on file Legal Sex 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 PENETRATION TESTER Gender Identity Not on file Sexual Orientation Not on file 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 Not 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 Not on file Not on file Not on file Not on file Not on file documented as of this encounter Plan of Treatment Upcoming Encounters Date Type Department Care Team (Late Contact Info) Description 07/20/2024 12:00 PM PENETRATION TESTER Virtual Visit [facility] [address] [place] [phone] Denise Woodson Ra, SALES MARKETING COORDINATOR STENCILER [address] [place] [address] 07/30/2024 8:30 AM PENETRATION TESTER Virtual Visit [facility] Neurology [address] [place] [phone] Randy Maradiaga, [address] [address] 08/04/2024 12:00 PM PENETRATION TESTER Virtual Visit [facility] Mental Health and Addiction Clinic [address] [place] [address] Arthur Salas, [facility] [address] [address] 08/04/2024 3:30 PM PENETRATION TESTER [facility] [address] [place] [phone] Denise Woodson Ra, SALES MARKETING COORDINATOR STENCILER [address] [place], [place] 8261068 08/07/2024 1:00 PM PENETRATION TESTER Appointment [facility] Heart Care 6[address] [facility] [address] [place] [phone] Danna Cardenas PA-C 6405 [place], [place] 230225 08/10/2024 12:30 PM PENETRATION TESTER Virtual Visit [facility] Neuropsychology [address] [phone] Robin Zepeda MD [address] [place] [address] 08/17/2024 12:30 PM PENETRATION TESTER Office Visit [facility] Neuropsychology [address] [phone] Robin Zepeda MD [address] [place] [address] Tulio Ogden, PhD [address] [address] 09/04/2024 11:00 AM PENETRATION TESTER Office Visit [facility] [address] [place] [phone] Denise Woodson Ra, SALES MARKETING COORDINATOR STENCILER [address] [place], [place] 26215[address] 09/18/2024 1:00 PM PENETRATION TESTER [facility] [address] [place] [phone] Denise Woodson Ra, SALES MARKETING COORDINATOR [facility] [address] [place] [address] 09/29/2024 9:00 AM PENETRATION TESTER Virtual Visit [facility] Neurology [address] 3rd [place] [phone] Randy Maradiaga, [address] 433315 10/09/2024 1:20 PM PENETRATION TESTER Office Visit [facility] Heart [facility] 6405 [facility] [address] [place] [phone] Danna Cardenas PA-C 6405 [place] [address] 10/30/2024 4:00 PM PENETRATION TESTER Virtual Visit [facility] Vascular [facility] [address] [place] [phone] Lisa Zambrano MD [address] [place], [place] [address] 12/29/2024 12:45 PM CDT Office Visit [facility] Pediatric Specialty Clinic [address] [place] [address] Ave [address] [phone] Fabi Coates MD 420 [facility] 75 [place], [place] 9[address]235 12/29/2024 1:45 PM CDT Office Visit [facility] Pediatric Specialty Clinic [address] [place] [address] Ave [address] [phone] Fabi Coates MD 420 [facility] 75 [place], [place] [address] 06/01/2025 11:15 AM CDT Appointment [facility] Imaging [address] [place] [place] [phone] Robin Zepeda MD [address] [place] [address] 930925 06/04/2025 11:00 AM CDT Office Visit [facility] Neurosurgery Clinic [address] 3rd [place] [phone] Robin Zepeda MD [address] [place] [address] 825835 Usha Simon, BARRERA STENCILER [address] [place] [address] documented as of this encounter Visit Diagnoses Not on filedocumented in this encounter Additional Health Concerns Assessment Noted Time PHQ-9 Depression Total Score: 0 06/23/20 21 4:11 PM CDT documented as of this encounter Care Teams Engineer Rf Deployment Relationship Specialty Start Date End Date Yung Madrigal MD RETIRED PCP - Orthopaedics Orthopedics 08/26/12 01/20/24 Winston Villatoro OD [facility] [place] [address] [place] [address] PCP - Ophthalmology Ophthalmology 02/11/13 Denise Woodson Ra, SALES MARKETING COORDINATOR STENCILER [address] [place] [address] PCP - General Family Practice 09/21/20 Denise Woodson Ra, APRN STENCILER [address] [place] [address] Assigned PCP 07/17/20 Usha Simon APRN STENCILER [address] 875365 Nurse Practitioner Neurological Surgery 01/24/24 Dangelo Salinas MD [address] [employer], [place] [id number] Neurology 01/27/24 Usha Simon APRN STENCILER [address] [place] [address] 798345 Assigned Neuroscience Provider 02/06/24 03/07/24 Anastasia Stearns, RN Lead Floodplain Manager 02/06/24 Germaine Lopez, W Community Health Worker Primary Care - CC 02/18/24 Robin Zepeda MD [address] 205355 Assigned Neuroscience Provider 03/08/24 05/07/24 Lisa Zambrano MD [address] [place] 814935 Assigned Heart and Vascular Provider 05/08/24 07/07/24 Raul Hoyos MD [address] [address] Assigned Neuroscience Provider 05/08/24 07/07/24 Joya Lira Joleen [address] [place] [address] Pharmacist Pharmacist 05/25/24 Joya Lira [facility] [address] [place] [address] Assigned MTM Pharmacist 06/08/24 Fabi Coates MD [address] [place] [address] 75 [place] [address] Genetics, Clinical 06/18/24 Robin Zepeda MD 909 [facility], [place] [address] Assigned Neuroscience Provider 07/08/24 Danna Cardenas PA-C 6405 [place] [address] Assigned Heart and Vascular Provider 07/08/24 Felicita Desai, RN Lead Floodplain Manager 07/14/24 documented as of this encounter
--- OUTSIDE RECORDS SUMMARY | 2024-07-16 13:57 | XMS_ITS | Encounter Summary ---
Author Organization [place] Address [address] [place] [address] Care Team Providers Care Cost Control Specialist Name Role Phone Winston Villatoro Se OD Unavailable [phone] Denise Woodson Ra, APRN MANAGER PACKAGING Unavailable + [phone] Denise Woodson Ra, APRN MANAGER PACKAGING Primary Care Provid er Usha Simon APRN MANAGER PACKAGING Unavailable Dangelo Salinas MD Unavailable Anastasia Stearns RN Unavailable [phone] Germaine Lopez CHW Unavailable [phone] Robin Zepeda MD Unavailable Lisa Zambrano MD Unavailable Raul Hoyos MD Unavailable [phone] Joya Lira [facility] Unavailable [phone] Joya Lira [facility] Unavailable Fabi Coates MD Unavailable [phone] Robin Zepeda MD Unavailable [phone] Danna CardenasC Unavailable [phone] Felicita Desai RN Unavailable Unavailab le Encounter [...] How often do you attend temple or advent serv ices? 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 Not on file Not on file Not on file Not on file Not on file documented as of this encounter Plan of Treatment Upcoming Encounters Date Type Department Care Team (Late st Contact Info) Description 07/20/2024 12:00 PM EXECUTIVE PRODUCER Virtual Visit [facility] [address] [facility] [address] Denise Woodson Ra, REGIONAL COMMERCIAL SALES MANAGER MANAGER PACKAGING [address] [place] [address] 07/30/2024 8:30 AM EXECUTIVE PRODUCER Virtual Visit [facility] Neurology Clinic [address] [phone] Randy Maradiaga DO [address] [place] [address] 08/04/2024 12:00 PM EXECUTIVE PRODUCER Virtual Visit [facility] Mental Health and Addiction Clinic [address] [place] [address] Olayinkaanselmoledy Neishazohraabilio, [facility] [address] [place] [address] 08/04/2024 3:30 PM EXECUTIVE PRODUCER Virtual Visit [facility] [address] [place] [phone] Denise Woodson Ra, REGIONAL COMMERCIAL SALES MANAGER [facility] [address] [place] [address] 08/07/2024 1:00 PM EXECUTIVE PRODUCER Appointment [facility] Heart Care [address] [facility] [address] [place] [phone] Danna Cardenas PA-C 6405 [place], [place] 023545 08/10/2024 12:30 PM EXECUTIVE PRODUCER Virtual Visit [facility] Neuropsychology [address] [phone] Robin Zepeda MD [address] [place] [address] [id number] [place] [address] 08/17/2024 12:30 PM EXECUTIVE PRODUCER Office Visit [facility] Neuropsychology [address] [phone] Robin Zepeda MD 9 [facility] PO0351NV [place] [address] Tulio Ogden, PhD [address] [address] 09/04/2024 11:00 AM EXECUTIVE PRODUCER Office Visit [facility] [address] [place] [phone] Denise Woodson Ra, REGIONAL COMMERCIAL SALES MANAGER MANAGER PACKAGING [address] [place], [place] [id number] 09/18/2024 1:00 PM EXECUTIVE PRODUCER Office Visit [facility] [address] [place] [address] Denise Woodson Ra, REGIONAL COMMERCIAL SALES MANAGER MANAGER PACKAGING [address] [place], [place] [id number] 09/29/2024 9:00 AM EXECUTIVE PRODUCER Virtual Visit [facility] Neurology [address] [phone] Randy Maradiaga DO [address] [place] [address] 753585 10/09/2024 1:20 PM EXECUTIVE PRODUCER Office Visit [facility] Heart [place] [address] [facility] [address] [place] [phone] Danna Cardenas PA-C 35[address] [place], [place] 986185 10/30/2024 4:00 PM EXECUTIVE PRODUCER Virtual Visit [facility] Vascular [facility] 6405 [facility] [address] [place] [address] [phone] Lisa Zambrano MD [address] [place] [address] 12/29/2024 12:45 PM CDT Office Visit [facility] Pediatric Specialty [facility] [address] [place], [place] [address] [address] [phone] Fabi Coates MD [address] [id number] 12/29/2024 1:45 PM CDT Office Visit [facility]ty [facility] [address] [place] [phone] Fabi Coates MD [address] [place] [address] [id number] 06/01/2025 11:15 AM CDT Appointment [facility] [address] [facility] [address] [place] [address] Robin Zepeda MD [address] [place] [address] 303495 06/04/2025 11:00 AM CDT Office Visit [facility] Neurosurgery [address] 3rd [place] [phone] Robin Zepeda MD [address] [place] [address] 699815 Usha Simon APRN [address] [id number] documented as of this encounter Goals Goal [...] Mental Health weekly - PT, OT and STAGE SETTINGS PAINTER, continuing through [facility]: - Continue following up with PCP: 09/04/2024 - Vascular Dr. Zambrano 05/01/24 - follow up recommended in 6 months: 11/11/24 TBD #[phone]. - call independently - MTM 05/25/2024, completed - Neurosurgery Dr. Zepeda, following up with TECHNICAL INSTRUCTOR COURSE DEVELOPER: 06/04/2025 11:00 AM (Arrive by 10:45 AM) Usha Simon, BARRERA MANAGER PACKAGING 2. I will take my medications as prescribed. 3. I will discuss, review, schedule and complete recommended overdue health maintenance with my Primary Care Provider. 4. I will contact my care team with questions, concerns, support needs. I will use the clinic as a resource and I understand I can contact my clinic with 24/7 after hours services available. Retail Sales Specialist will remain available as needed. documented as of this encounter Visit Diagnoses Not on filedocumented in this encounter Additional Health Concerns Active Problems Noted Date Diagnosed Date Increased risk of re-admission 02/18/2024 Assessment Noted Time PHQ-9 Depression Total Score: 5 03/17/20 24 9:45 AM CDT documented as of this encounter Care Teams Cost Control Specialist Relationship Specialty Start Date End Date Winston Villatoro OD [facility] [place] [address] [place] [address] PCP - Ophthalmology Ophthalmology 02/11/13 Denise Woodson Ra, REGIONAL COMMERCIAL SALES MANAGER MANAGER PACKAGING [address] [place] [address] PCP - General Family Practice 09/21/20 Denise Woodson Ra, APRN MANAGER PACKAGING [address] [place] [address] Assigned PCP 07/17/20 Usha Simon APRN MANAGER PACKAGING [address] [address] Nurse Practitioner Neurological Surgery 01/24/24 Dangelo Salnias MD [address] [place] [address] Neurology 01/27/24 Anastasia Stearns, RN Lead Retail Sales Specialist 02/06/24 Germaine Lopez, W Community Health Worker Primary Care - CC 02/18/24 Robin Zepeda MD [address] [address] Assigned Neuroscience Provider 03/08/24 05/07/24 Lisa Zambrano MD [address] [place] [address] Assigned Heart and Vascular Provider 05/08/24 07/07/24 Raul Hoyos MD [address] [address] Assigned Neuroscience Provider 05/08/24 07/07/24 Joya Lira [facility] [address] [place] [address] Pharmacist Pharmacist 05/25/24 Joya Lira [facility] [address] [place] [address] Assigned MTM Pharmacist 06/08/24 Fabi Coates MD [address] [place] [address] 75 [place] [address] Genetics, Clinical 06/18/24 Robin Zepeda MD 909 [facility] [id number] [place] [address] Assigned Neuroscience Provider 07/08/24 Danna Cardenas PA-C 6405 [place] [address] Assigned Heart and Vascular Provider 07/08/24 Felicita Desai, RN Lead Retail Sales Specialist 07/14/24 documented as of this encounter
--- OUTSIDE RECORDS SUMMARY | 2024-07-16 13:57 | XMS_ITS | Encounter Summary ---
Author Organization [place] Address [address] [place] [address] Care Team Providers Care Power Hammer Operator Name Role Phone Winston Villatoro OD Unavailable [phone] Denise Woodson Ra, APRN SENIOR PRODUCT ENGINEER Unavailable + [phone] Denise Woodson Ra HOSPITAL INTERNSHIP SENIOR PRODUCT ENGINEER Primary Care Provid er Usha Simon APRN SENIOR PRODUCT ENGINEER Unavailable Dangelo Salinas MD Unavailable Usha Simon APRN SENIOR PRODUCT ENGINEER Unavailable Anastasia Stearns RN Unavailable Germaine Lopez CHW Unavailable [phone] Robin Zepeda MD Unavailable Lisa Zambrano MD Unavailable Raul Hoyos MD Unavailable [phone] Joya Lira [facility] Unavailable [phone] Joya Lira [facility] Unavailable [phone] Fabi Coates MD Unavailable [phone] Robin Zepeda MD Unavailable [phone] Danna Cardenas PA-C Unavailable [phone] Felicita Desia RN Unavailable Unavailab le Reason for Visit * Reason Onset Date Comments Appointment 01/23/2024 Referral-Stroke hospital follow up Encounter Details Date Type Department Care Team (Late st Contact Info) Description 01/23/2024 Telephone [facility] Neurology Clinic [address] 3rd [place] [phone] None Appointment (Referral-Stroke hospital follow up) Social [...] on file Legal Sex 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 HORSE RACE STARTER Gender Identity Not on file Sexual Orientation Not on file 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 Phone Message May a detailed message be left on voicemail: yes Reason for Call: Appointment Intake Referring Provider Name: Dr. Delisa Manuel Ur 5 Med Surg Diagnosis and/or Symptoms: Stroke Please review referral for Stroke as no HFU orders are entered for Stroke follow up. Patient discharged on 01/22/24 from [facility] and is now in Acute Rehab Unit. Action Taken: Message routed to: [facility] Neurology Travel Screening: Not Applicable documented in this encounter Plan of Treatment Upcoming Encounters Date Type Department Care Team (Late st Contact Info) Description 07/20/2024 12:00 PM HORSE RACE STARTER Virtual Visit [facility] [address] [place] [address] Denise Woodson Ra, HOSPITAL INTERNSHIP SENIOR PRODUCT ENGINEER [address] [place] [address] 07/30/2024 8:30 AM HORSE RACE STARTER Virtual Visit [facility] Neurology Clinic [address] [phone] Randy Maradiaga DO [address] [place] [address] 08/04/2024 12:00 PM HORSE RACE STARTER Virtual Visit [facility] Mental Health and Addiction Clinic [address] [place] [address] Arthur Salas, [address] [address] 08/04/2024 3:30 PM HORSE RACE STARTER Virtual Visit [facility] [address] [place] [phone] Denise Woodson Ra, HOSPITAL INTERNSHIP [facility] [address] [place] [address] 08/07/2024 1:00 PM HORSE RACE STARTER Appointment [facility] Heart Care 6405 [facility] [address] [place] [address] [phone] Danna Cardenas, PA-C 6405 [place], [place] 7[address] 08/10/2024 12:30 PM HORSE RACE STARTER Virtual Visit [facility] Clinic Neuropsychology [address] [phone] Robin Zepeda MD [address] [place] [address] [id number] [address] 08/17/2024 12:30 PM HORSE RACE STARTER Office Visit [facility] Neuropsychology [address] [phone] Robin Zepeda MD [address] [facility] [id number] [place] [address] Tulio Ogden, PhD [address] [address] 09/04/2024 11:00 AM HORSE RACE STARTER Office Visit [facility] [address] [place] [phone] Denise Woodson Ra, HOSPITAL INTERNSHIP SENIOR PRODUCT ENGINEER [address] [place], [place] [phone] 09/18/2024 1:00 PM HORSE RACE STARTER Office Visit [facility] [address] [place] [phone] eDnise Woodson Ra, HOSPITAL INTERNSHIP SENIOR PRODUCT ENGINEER [address] [place], [place] [phone] 09/29/2024 9:00 AM HORSE RACE STARTER Virtual Visit [facility] Neurology [address] [place] [phone] Randy Maradiaga, [address] [place] [address] 10/09/2024 1:20 PM HORSE RACE STARTER Office Visit [facility] Heart [place] [address] [facility] [address] [place] [phone] Danna Cardenas PA-C 3508 [place], [place] 169785 10/30/2024 4:00 PM HORSE RACE STARTER Virtual Visit [facility] Vascular Clinic [place] [address] [place] [place] [phone] Lisa Zambrano MD [address] [place] [address] 12/29/2024 12:45 PM CDT Office Visit [facility] Pediatric Specialty Clinic [address] [place], [place] [address] [address] [phone] Fabi Coates MD [address] 0616[address] 12/29/2024 1:45 PM CDT Office Visit [facility] Pediatric Specialty Clinic [address] [place], [place] [address] [address] [phone] Faib Coates MD [address] [place] [address] 585035 06/01/2025 11:[address] [facility] [address] [place] [phone] Robin Zepeda MD [address] [place] [address] 06/04/2025 11:00 AM CDT Office Visit [facility] Neurosurgery Clinic [address] 3rd [place] [phone] Robin Zepeda MD [address] [place] [address] 934855 Usha Simon APRN SENIOR PRODUCT ENGINEER [address] [place] [address] documented as of this encounter Visit Diagnoses Not on filedocumented in this encounter Additional Health Concerns Assessment Noted Time PHQ-9 Depression Total Score: 0 06/23/20 21 4:11 PM CDT documented as of this encounter Care Teams Power Hammer Operator Relationship Specialty Start Date End Date Winston Villatoro OD [facility] Outlook [address] [place] [address] PCP - Ophthalmology Ophthalmology 02/11/13 Denise Woodson Ra, APRN SENIOR PRODUCT ENGINEER [address] [place] [address] PCP - General Family Practice 09/21/20 Denise Woodson Ra, APRN SENIOR PRODUCT ENGINEER [address] [place] [address] Assigned PCP 07/17/20 Usha Simon APRN SENIOR PRODUCT ENGINEER [address] [place] [address] 894835 Nurse Practitioner Neurological Surgery 01/24/24 Dangelo Salinas MD [address] [place] [address] Neurology 01/27/24 Usha Simon APRN SENIOR PRODUCT ENGINEER [address] [address] Assigned Neuroscience Provider 02/06/24 03/07/24 Anastasia Stearns, RN Lead Platen Press Operator 02/06/24 Germaine Lopez, W Community Health Worker Primary Care - CC 02/18/24 Robin Zepeda MD [address] [place] [address]J [place] [address] Assigned Neuroscience Provider 03/08/24 05/07/24 Lisa Zambrano MD 6405 [facility] [address] [place] [address] Assigned Heart and Vascular Provider 05/08/24 07/07/24 Raul Hoyos MD [address] [address] Assigned Neuroscience Provider 05/08/24 07/07/24 Joya Lira [facility] [address] [place] [address] Pharmacist Pharmacist 05/25/24 Joya Lira [facility] [address] [place] [address] Assigned MTM Pharmacist 06/08/24 Fabi Coates MD [address] [place] [address] 75 [place] [address] Genetics, Clinical 06/18/24 Robin Zepeda MD [address] [address] Assigned Neuroscience Provider 07/08/24 Danna Cardenas PA-C 6405 [place] [address] Assigned Heart and Vascular Provider 07/08/24 Felicita Desai, RN Lead Platen Press Operator 07/14/24 documented as of this encounter
--- OUTSIDE RECORDS SUMMARY | 2024-07-16 13:58 | XMS_ITS | Encounter Summary ---
Author Organization [facility] Address [address] [place] [address] Care Team Providers Care Sausage Tier Name Role Phone Yung Madrigal MD Unavailable Unavailable Winston Villatoro OD Unavailable [phone] Denise Woodson Ra, APRN CHAIN HOIST OPERATOR Unavailable + [phone] Denise Woodson Ra, APRN CHAIN HOIST OPERATOR Primary Care Provid er Usha Simon APRN CHAIN HOIST OPERATOR Unavailable Dangelo Salinas MD Unavailable Usha Simon APRN CHAIN HOIST OPERATOR Unavailable [phone] Anastasia Stearns RN Unavailable [phone] Germaine Lopez CHW Unavailable [phone] Robin Zepeda MD Unavailable Lisa Zambrano MD Unavailable Raul Hoyos MD Unavailable [phone] Joya Lira [facility] Unavailable [phone] Joya Lira [facility] Unavailable [phone] Fabi Coates MD Unavailable [phone] Robin Zepeda MD Unavailable Danna CardenasC Unavailable [phone] Felicita Desai RN Unavailable Unavailab le Reason for Visit * Reason Onset Date Comments URI 09/21/2020 Encounter Details Date Type Department Care Team (Late st Contact Info) Description 09/21/2020 MyC Medical Advice M [facility] [place] [address] [place] [phone] Denise Woodson Ra, HRBP CHAIN HOIST OPERATOR [address] [place], [place] [id number] URI Social History Tobacco Use Types Packs/Day Years Used Date Smoking Tobacco: Never Smokeless Tobacco: Never Alcohol Use Standard Drinks/Week Comments Yes 0 (1 standard drink = 0.6 oz pur e alcohol) minimal PHQ-2 Answer Date Recorded PHQ-2 Score 2 07/13/2020 Comments No Sex and Gender Information Value Date Recorded Sex Assigned at Not on file Legal Sex 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 TANKER DRIVER Gender Identity Not on file Sexual Orientation Not on file 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 No / Unsure 09/21/2020 12:04 PM TANKER DRIVER documented as of this encounter Miscellaneous Notes * Telephone Encounter - Kati Yang RN - 09/21/2020 10:54 AM CST [employer] message sent to patient. Kati Yang RN ER DRIVER documented in this encounter Plan of Treatment Upcoming Encounters Date Type Department Care Team (Late st Contact Info) Description 07/20/2024 12:00 PM TANKER DRIVER [facility] [address] [place] [phone] Denise Woodson Ra, HRBP CHAIN HOIST OPERATOR [address] [place], [place] [phone] 07/30/2024 8:30 AM TANKER DRIVER Virtual Visit [facility] Neurology Clinic [address] [phone] Randy Maradiaga DO [address] [place] [address] 08/04/2024 12:00 PM TANKER DRIVER Virtual Visit [facility] Mental Health and Addiction Clinic [place] [address] [place] [address] Arthur Salas, [facility] [address] [place] [address] 08/04/2024 3:30 PM TANKER DRIVER Virtual Visit [facility] [address] [place] [phone] Denise Woodson Ra, HRBP [facility] [address] [place] [address] 08/07/2024 1:00 [address] [facility] Heart Care 6405 [facility] [address] [place] [phone] Danna Cardenas PA-C 6405 [place], [place] 140515 08/10/2024 12:30 PM TANKER DRIVER Virtual Visit [facility] Neuropsychology [address] [phone] Robin Zepeda MD [address] [place] [address] [id number] [place] [address] 08/17/2024 12:30 PM TANKER DRIVER Office Visit [facility] Neuropsychology [address] [phone] Robin Zepeda MD 909 [facility] [id number] [place] [address] Tulio Ogden, PhD [address] [address] 09/04/2024 11:00 AM TANKER DRIVER Office Visit [facility] [address] [place] [phone] Denise Woodson Ra, HRBP CHAIN HOIST OPERATOR [address] [place], [place] [phone] 09/18/2024 1:00 PM TANKER DRIVER Office Visit [facility] [address] [place] [phone] Denise Woodson Ra, HRBP CHAIN HOIST OPERATOR [address] [place], [place] [id number] 09/29/2024 9:00 AM TANKER DRIVER Virtual Visit [facility] Neurology [address] [phone] Randy Maradiaga DO [address] [place] [address] 10/09/2024 1:20 PM TANKER DRIVER Office Visit [facility] Heart [address] [place] [phone] Danna Cardenas PA-C 6840 [place], [place] 483655 10/30/2024 4:00 PM TANKER DRIVER Virtual Visit [facility] Vascular [address] [place] [phone] Lisa Zambrano MD [address] [place] [address] 12/29/2024 12:45 PM CDT Office Visit [facility] Pediatric Specialty Clinic [address] [place], [place] [address]e Explorer [address] [phone] Fabi Coates MD [address] 165825 12/29/2024 1:45 PM CDT Office Visit [facility] Pediatric Specialty Clinic [address] [place] [address] [phone] Fabi Coates MD [address] [place] [address] 06/01/2025 11:15 AM CDT Appointment [facility] Care Center Imaging [address] [facility] [address] [place] [phone] Robin Zepeda MD [address] [place] [address] 06/04/2025 11:00 AM CDT Office Visit [facility] Neurosurgery [address] 3rd [place] [phone] Robin Zepeda MD [address] [place] [address] 849325 Usha Simon APRN [address] [address] documented as of this encounter Visit Diagnoses Not on filedocumented in this encounter Additional Health Concerns Assessment Noted Time PHQ-9 Depression Total Score: 0 06/15/20 19 7:09 PM CDT documented as of this encounter Care Teams Sausage Tier Relationship Specialty Start Date End Date Yung Madrigal MD RETIRED PCP - Orthopaedics Orthopedics 08/26/12 01/20/24 Winston Villatoro, OD [facility] [place] [address] [place] [address] PCP - Ophthalmology Ophthalmology 02/11/13 Denise Woodson Ra, HRBP CHAIN HOIST OPERATOR [address] [place] [place], [place] [phone] PCP - General Family Practice 09/21/20 Denise Woodson Ra HRBP CHAIN HOIST OPERATOR [address] [place] [id number] Assigned PCP 07/17/20 Usha Simon APRN CHAIN HOIST OPERATOR [address] 819755 Nurse Practitioner Neurological Surgery 01/24/24 Dangelo Salinas MD [address] [address] Neurology 01/27/24 Usha Simon APRN CHAIN HOIST OPERATOR [address] 796995 Assigned Neuroscience Provider 02/06/24 03/07/24 Anastasia Stearns, RN Lead Program Scheduler 02/06/24 Germaine Lopez, W Community Health Worker Primary Care - CC 02/18/24 Robin Zepeda MD [address] [address] Assigned Neuroscience Provider 03/08/24 05/07/24 Lisa Zambrano MD [address] [address] Assigned Heart and Vascular Provider 05/08/24 07/07/24 Raul Hoyos MD [address] [place] [address] Assigned Neuroscience Provider 05/08/24 07/07/24 Joya Lira [facility] [address] [place] [address] Pharmacist Pharmacist 05/25/24 Joya Lira [facility] [address] [place] [address] Assigned MTM Pharmacist 06/08/24 Fabi Coates MD [address] [place] [address] 75 [place] [address] Genetics, Clinical 06/18/24 Robin Zepeda MD [address] [place] [address] Assigned Neuroscience Provider 07/08/24 Danna Cardenas PA-C 6405 [place] [address] Assigned Heart and Vascular Provider 07/08/24 Felicita Desai, RN Lead Program Scheduler 07/14/24 documented as of this encounter
--- OUTSIDE RECORDS SUMMARY | 2024-07-16 13:58 | XMS_ITS | Encounter Summary ---
Author Organization [facility] Address [address] [place] [address] Care Team Providers Care Brazer Resistance Name Role Phone Yung Madrigal MD Unavailable Unavailable Winston Villatoro OD Unavailable [phone] Denise Woodson Ra, APRN ORACLE IDENTITY MANAGEMENT CONSULTANT Unavailable + [phone] Denise Woodson Ra, APRN ORACLE IDENTITY MANAGEMENT CONSULTANT Primary Care Provid er Usha Simon APRN ORACLE IDENTITY MANAGEMENT CONSULTANT Unavailable Dangelo Salinas MD Unavailable Usha Simon APRN ORACLE IDENTITY MANAGEMENT CONSULTANT Unavailable [phone] Anastasia Stearns RN Unavailable [phone] Germaine Lopez CHW Unavailable [phone] Robin Zepeda MD Unavailable Lisa Zambrano MD Unavailable Raul Hoyos MD Unavailable Joya Lira [facility] Unavailable [phone] Joya Lira [facility] Unavailable [phone] Fabi Coates MD Unavailable [phone] Robin Zepeda MD Unavailable Danna CardenasC Unavailable [phone] Lloyd, Felicita M RN Unavailable Unavailab le Reason for Visit * Reason Onset Date Comments MyChart Communication 06/08/2021 Abdominal pain Encounter Details Date Type Department Care Team (Late st Contact Info) Description 06/08/2021 MyC Medical Advice [facility] [address] [place] [phone] Denise Woodson Ra, HEAT TREATER ORACLE IDENTITY MANAGEMENT CONSULTANT [address] [place], [place] [phone] MyChart Communication (Abdominal pain) Social History Tobacco Use Types Packs/Day Years Used Date Smoking Tobacco: Never Smokeless Tobacco: Never Alcohol Use Standard Drinks/Week Comments Not Currently 0 (1 standard drink = 0.6 oz pur e alcohol) minimal PHQ-2 Answer Date Recorded PHQ-2 Score 0 01/04/2021 Comments No Sex and Gender Information Value Date Recorded Sex Assigned at Not on file Legal Sex 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 TAPING FOREMAN Gender Identity Not on file Sexual Orientation Not on file 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 Not on file Not on file Not on file Not on file Not on file documented as of this encounter Plan of Treatment Upcoming Encounters Date Type Department Care Team (Late st Contact Info) Description 07/20/2024 12:00 PM TAPING FOREMAN Virtual Visit [facility] [address] [place] [phone] Denise Woodson Ra, HEAT TREATER ORACLE IDENTITY MANAGEMENT CONSULTANT [address] [place], [place] [phone] 07/30/2024 8:30 AM TAPING FOREMAN Virtual Visit [facility] Neurology Clinic [address] 3rd [place] [phone] Randy Maradiaga, [address] [address] 08/04/2024 12:00 PM TAPING FOREMAN Virtual Visit [facility] Mental Health and Addiction Clinic [address] [place] [address] Arthur Salas, PILL MAKER [address] [place] [address] 08/04/2024 3:30 PM TAPING FOREMAN [facility] [address] [place] [phone] Denise Woodson Ra, HEAT TREATER ORACLE IDENTITY MANAGEMENT CONSULTANT [address] [place] [address] 08/07/2024 1:00 PM TAPING FOREMAN Appointment M [facility] Heart Care 6405 [facility] [address] [place] [phone] Danna Cardenas PA-C 6405 [place] [address] 08/10/2024 12:30 PM TAPING FOREMAN Virtual Visit [facility] Neuropsychology [address] [phone] Robin Zepeda MD [address] [place] [address] 08/17/2024 12:30 PM TAPING FOREMAN Office Visit [facility] Neuropsychology [address] [phone] Robin Zepeda MD [address] [place] [address] Tulio Ogden, PhD [address] [address] 09/04/2024 11:00 AM TAPING FOREMAN Office Visit [facility] [address] [place] [phone] Denise Woodson Ra, HEAT TREATER ORACLE IDENTITY MANAGEMENT CONSULTANT [address] [place], [place] [phone] 09/18/2024 1:00 PM TAPING FOREMAN [facility] [address] [place] [phone] Denise Woodson Ra, HEAT TREATER ORACLE IDENTITY MANAGEMENT CONSULTANT [address] [place] [address] 09/29/2024 9:00 AM TAPING FOREMAN Virtual Visit [facility] Neurology [address] [place] [phone] Randy Maradiaga, [address] 129915 10/09/2024 1:20 PM TAPING FOREMAN Office Visit [facility] Heart [facility] 6405 [facility] [address] [place] [phone] Danna Cardenas PA-C 6405 [place] [address] 10/30/2024 4:00 PM TAPING FOREMAN Virtual Visit [facility] Vascular [facility] [address] [place] [phone] Lisa Zambrano MD [address] [place], [place] [address] 12/29/2024 12:45 PM CDT Office Visit [facility] 2450 [facility] [address] [phone] Fabi Coates MD 420 [facility] [address] [place], [place] 856745 12/29/2024 1:45 PM CDT Office Visit [facility] 2450 [facility] Explorer [facility] [address] [phone] Fabi Coates MD [address] [facility] [address] [place], [place] [address] 06/01/2025 11:15 AM CDT Appointment M [facility] Specialty Care Center Imaging [address] [place] [phone] Robin Zepeda MD [address] [place] [address] 06/04/2025 11:00 AM CDT Office Visit [facility] Neurosurgery [facility] 909 [facility] 3rd [place] [phone] Robin Zepeda MD [address] [place] [address] Usha Simon APRN [facility] [address] [address] documented as of this encounter Visit Diagnoses Not on filedocumented in this encounter Additional Health Concerns Assessment Noted Time PHQ-9 Depression Total Score: 0 01/05/20 21 9:31 AM CDT documented as of this encounter Care Teams Brazer Resistance Relationship Specialty Start Date End Date Yung Madrigal MD RETIRED PCP - Orthopaedics Orthopedics 08/26/12 01/20/24 Winston Villatoro OD [facility] [place] 701 [facility] [address] [place] [address] PCP - Ophthalmology Ophthalmology 02/11/13 Denise Woodson Ra HEAT TREATER ORACLE IDENTITY MANAGEMENT CONSULTANT [address] [place] [address] PCP - General Family Practice 09/21/20 Denise Woodson Ra HEAT TREATER ORACLE IDENTITY MANAGEMENT CONSULTANT [address] [address] [place], [place] [phone] Assigned PCP 07/17/20 Usha Simon APRN ORACLE IDENTITY MANAGEMENT CONSULTANT [address] [id number] Nurse Practitioner Neurological Surgery 01/24/24 Dangelo Salinas MD [address] [facility] [address] [facility] 200 [place] [address] Neurology 01/27/24 Usha Simon APRN ORACLE IDENTITY MANAGEMENT CONSULTANT [address] [id number] Assigned Neuroscience Provider 02/06/24 03/07/24 Anastasia Stearns, RN Lead Director Of Cardiac Cath Lab 02/06/24 Germaine Lopez, W Community Health Worker Primary Care - CC 02/18/24 Robin Zepeda MD [address] [address] Assigned Neuroscience Provider 03/08/24 05/07/24 Lisa Zambrano MD 6405 [facility] J[facility] [place] [place] [id number] Assigned Heart and Vascular Provider 05/08/24 07/07/24 Raul Hoyos MD 909 [facility] [place] [address] Assigned Neuroscience Provider 05/08/24 07/07/24 Joya Lira [facility] [address] [facility] [place] [address] Pharmacist Pharmacist 05/25/24 Joya Lira [facility] [address] [place] [address] [place] [address] Assigned MTM Pharmacist 06/08/24 Fabi Coates MD [address] [place] [address] [address] [place] [address] Genetics, Clinical 06/18/24 Robin Zepeda MD 909 [facility] [place] [address] Assigned Neuroscience Provider 07/08/24 Danna Cardenas PA-C [address] [place] [address] Assigned Heart and Vascular Provider 07/08/24 Felicita Desai, RN Lead Director Of Cardiac Cath Lab 07/14/24 documented as of this encounter
--- OUTSIDE RECORDS SUMMARY | 2024-07-16 13:58 | XMS_ITS | Encounter Summary ---
Author Organization [facility] Address [address] [place] [address] Care Team Providers Care Terminal Superintendent Name Role Phone Yung Madrigal MD Unavailable Unavailable Winston Villatoro OD Unavailable [phone] Deinse Woodson Ra, APRN REFRIGERATED CARGO CLERK Unavailable + [phone] Denise Woodson Ra, APRN REFRIGERATED CARGO CLERK Primary Care Provid er Usha Simon APRN REFRIGERATED CARGO CLERK Unavailable Dangelo Salinas MD Unavailable Usha Simon APRN REFRIGERATED CARGO CLERK Unavailable [phone] Anastasia Stearns RN Unavailable +[phone] Germaine Lopez CHW Unavailable [phone] Robin Zepeda MD Unavailable Lisa Zambrano MD Unavailable Raul Hoyos MD Unavailable [phone] Joya Lira [facility] Unavailable [phone] Joya Lira [facility] Unavailable [phone] Fabi Coates MD Unavailable [phone] Robin Zepeda MD Unavailable [phone] Danna CardenasC Unavailable +[phone] Felicita Deasi RN Unavailable Unavailab le Reason for Visit * Reason Comments Medication Refill Encounter Details Date Type Department Care Team (Late st Contact Info) Description 02/19/2022 Refill M [facility] [place] [address] [facility] [place] [phone] Denise Woodson Ra, RN CONCURRENT REVIEW REFRIGERATED CARGO CLERK [address] [place] [place] [id number] Medication Refill Social History Tobacco Use Types Packs/Day Years Used Date Smoking Tobacco: Never Smokeless Tobacco: Never Alcohol Use Standard Drinks/Week Comments Not Currently 0 (1 standard drink = 0.6 oz pur e alcohol) minimal PHQ-2 Answer Date Recorded PHQ-2 Score 0 07/27/2021 Comments No Sex and Gender Information Value Date Recorded Sex Assigned at Not on file Legal Sex 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 AUDITING CONTROL CLERK Gender Identity Not on file Sexual Orientation Not on file 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 [place] [phone] Denise Woodson Ra, RN CONCURRENT REVIEW REFRIGERATED CARGO CLERK [address] [address] [place] [id number] 07/30/2024 8:30 AM AUDITING CONTROL CLERK Virtual Visit [facility] Neurology Clinic [place] 909 [facility] 3rd [place] [phone] Randy Maradiaga DO [address] [place] [address] 08/04/2024 12:00 PM AUDITING CONTROL CLERK Virtual Visit [facility] [address] [place] [address] Olayinkaanselmoledy Arthur, [facility] [address] [place] [address] 08/04/2024 3:30 PM AUDITING CONTROL CLERK Virtual Visit [facility] [address] [place] [phone] Denise Woodson Ra, RN CONCURRENT REVIEW [facility] [address] [place] [address] 08/07/2024 1:00 PM AUDITING CONTROL CLERK Appointment [facility] Heart Care 6405 [facility] [address] [place] [phone] Danna Cardenas PANilesC 6405 [place], [place] 912355 08/10/2024 12:30 PM AUDITING CONTROL CLERK Virtual Visit [facility] Clinic Neuropsychology [address] [place] [phone] Robin Zepeda MD [address] [place] [address] SA3465WH [place] [address] 08/17/2024 12:30 PM AUDITING CONTROL CLERK Office Visit [facility] Neuropsychology [address] [phone] Robin Zepeda MD 9 [facility] [id number] [place] [address] Tulio Ogden, PhD [address] [address] 09/04/2024 11:00 AM AUDITING CONTROL CLERK Office Visit [facility] [address] [place] [phone] Denise Woodson Ra, RN CONCURRENT REVIEW REFRIGERATED CARGO CLERK [address] [place], [place] [phone] 09/18/2024 1:00 PM AUDITING CONTROL CLERK Office Visit [facility] [address] [place] [phone] Denise Woodson Ra, RN CONCURRENT REVIEW REFRIGERATED CARGO CLERK [address] [place], [place] [id number] 09/29/2024 9:00 AM AUDITING CONTROL CLERK Virtual Visit [facility] Neurology [address] [place] [phone] Randy Maradiaga DO [address] [place] [address] 370185 10/09/2024 1:20 PM AUDITING CONTROL CLERK Office Visit [facility] Heart [address] [place] [phone] Danna Cardenas PA-C [address] [place] [address] 332355 10/30/2024 4:00 PM AUDITING CONTROL CLERK Virtual Visit [facility] Vascular [facility] [address] [place] [address] [address] [place] [address] [phone] Lisa Zambrano MD [address] [place] [address] 12/29/2024 12:45 PM CDT Office Visit [facility] Pediatric Specialty Clinic [address] [place] [address] [phone] Fabi Coates MD [address] 061475 12/29/2024 1:45 PM CDT Office Visit [facility] [address] [place] [address] [phone] Fabi Coates MD [address] [place] [address] 500695 06/01/2025 11:15 AM CDT Appointment [facility] Imaging [address] [facility] [address] [place] [address] Robin Zepeda MD [address] [place] [address] 259635 06/04/2025 11:00 AM CDT Office Visit [address] 3rd [place] [phone] Robin Zepeda MD [address] [place] [address] 751935 Usha Simon APRN [address] [id number] documented as of this encounter Visit Diagnoses Diagnosis Moderate persistent asthma without complication Unspecified asthma documented in this encounter Additional Health Concerns Assessment Noted Time PHQ-9 Depression Total Score: 0 06/23/20 21 4:11 PM CDT documented as of this encounter Care Teams Terminal Superintendent Relationship Specialty Start Date End Date Yung Madrigal MD RETIRED PCP - Orthopaedics Orthopedics 08/26/12 01/20/24 Winston Villatoro, OD [facility] [place] [address] [facility] [address] [place], [place] [phone] PCP - Ophthalmology Ophthalmology 02/11/13 Denise Woodson Ra, APRN REFRIGERATED CARGO CLERK [address] [place], [place] [id number] PCP - General Family Practice 09/21/20 Denise Woodson Ra, APRN REFRIGERATED CARGO CLERK [address] [place], [place] [id number] Assigned PCP 07/17/20 Usha Simon APRN REFRIGERATED CARGO CLERK [address] [place] [address] [id number] Nurse Practitioner Neurological Surgery 01/24/24 Dangelo Salinas MD [address] [id number] Neurology 01/27/24 Usha Simon APRN REFRIGERATED CARGO CLERK [address] 370925 Assigned Neuroscience Provider 02/06/24 03/07/24 Anastasia Stearns, RN Lead Farmworker General 02/06/24 Germaine Lopez, W Community Health Worker Primary Care - CC 02/18/24 Robin Zepeda MD [address] [place] [address] Assigned Neuroscience Provider 03/08/24 05/07/24 Lisa Zambrano MD 6405 [facility] [place] [address] Assigned Heart and Vascular Provider 05/08/24 07/07/24 Raul Hoyos MD [address] [place] [address] Assigned Neuroscience Provider 05/08/24 07/07/24 Joya Lira [facility] [address] [place] [address] Pharmacist Pharmacist 05/25/24 Joya Lira [facility] [address] [place] [address] Assigned MTM Pharmacist 06/08/24 Fabi Coates MD [address] [place] [address] 75 [place] [address] Genetics, Clinical 06/18/24 Robin Zepeda MD [address] [place] [address] Assigned Neuroscience Provider 07/08/24 Danna Cardenas PA-C 6405 [place] [address] Assigned Heart and Vascular Provider 07/08/24 Felicita Desai, RN Lead Farmworker General 07/14/24 documented as of this encounter
--- OUTSIDE RECORDS SUMMARY | 2024-07-16 13:58 | XMS_ITS | Encounter Summary ---
Author Organization [facility] Address [address] [place] [address] Care Team Providers Care Superintendent Oil Field Drilling Name Role Phone Timmy Perez MD Unavailable Unavailable Yung Madrigal MD Unavailable Unavailable Winston Villatoro OD Unavailable [phone] Apple Sykes MD Primary Care Provider Unavailab Westley Vera MD Unavailable [phone] GeorginaAlessandra Gómez APRN BARREL ASSEMBLER HELPER Primary Car e Provider Serum, Clara Garland MD Primary Care Provider Serum, Clara Garland MD Unavailable +[phone] Serum, Clara Garland MD Unavailable Denise Woodson Ra, APRN BARREL ASSEMBLER HELPER Unavailable + [phone] Denise Woodson Ra, APRN BARREL ASSEMBLER HELPER Primary Care Provid er Usha Simon APRN BARREL ASSEMBLER HELPER Unavailable + [phone] Dangelo Salinas MD Unavailable Usha Simon MAIL HANDLER SORTER BARREL ASSEMBLER HELPER Unavailable + [phone] Anastasia Stearns RN Unavailable [phone] Germaine Lopez CHW Unavailable [phone] Robin Zepeda MD Unavailable [phone] Lisa Zambrano MD Unavailable + [phone] Raul Hoyos MD Unavailable SoryaaKeilaJoya [facility] Unavailable [phone] Joya Lira [facility] Unavailable [phone] Fabi Coates MD Unavailable [phone] DuaneRobin MD Unavailable [phone] Danna Cradenas PA-C Unavailable [phone] Felicita Desai RN Unavailable Unavailab le Encounter Details Date Type Department Care Team (Late st Contact Info) Description 05/26/2013 MyC Medical Advice [facility] [place] Orthopedics [address] [place] [phone] Yung Madrigal MD RETIRED Social History Tobacco Use Types Packs/Day Years Used Date Smoking Tobacco: Never Smokeless Tobacco: Never Alcohol Use Standard Drinks/Week Comments Yes 0 (1 standard drink = 0.6 oz pur e alcohol) minimal Comments No Sex and Gender Information Value Date Recorded Sex Assigned at Not on file Legal Sex 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 SUPERVISOR COMPOUNDING AND FINISHING Gender Identity Not on file Sexual Orientation Not on file 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 documented as of this encounter Plan of Treatment Upcoming Encounters Date Type Department Care Team (Late Contact Info) Description 07/20/2024 12:00 PM SUPERVISOR COMPOUNDING AND FINISHING Virtual Visit [facility] [address] [place] [address] Denise Woodson Ra, MAIL HANDLER SORTER [facility] [address] [place], [place] [phone] 07/30/2024 8:30 AM SUPERVISOR COMPOUNDING AND FINISHING Virtual Visit [facility] Neurology Clinic [address] [phone] Randy Maradiaga, [address] [place] [address] 268[address] 08/04/2024 12:00 PM SUPERVISOR COMPOUNDING AND FINISHING Virtual Visit [facility] Addiction [facility] [place] [address] [place] [address] OlayinkaanselmoledyNeishazohraanaly, [facility] [address] [place] [address] 08/04/2024 3:30 PM SUPERVISOR COMPOUNDING AND FINISHING [facility] [address] [place] [phone] Denise Woodson Ra, MAIL HANDLER SORTER BARREL ASSEMBLER HELPER [address] [place], [place] [phone] 08/07/2024 1:00 PM SUPERVISOR COMPOUNDING AND FINISHING Appointment [facility] Heart Care 6405 [facility] [address] [place] [phone] Danna Cardenas PA-C 6405 [place] [address] 08/10/2024 12:30 PM SUPERVISOR COMPOUNDING AND FINISHING Virtual Visit [facility] Neuropsychology [address] [phone] Robin Zepeda MD [address] [place] [address] 08/17/2024 12:30 PM SUPERVISOR COMPOUNDING AND FINISHING Office Visit [facility] Neuropsychology [address] [phone] Robin Zepeda MD [address] [place] [address]80[address] Tulio Ogden, PhD [address] [address] 09/04/2024 11:00 AM SUPERVISOR COMPOUNDING AND FINISHING [facility] [address] [place] [phone] Denise Woodson Ra, MAIL HANDLER SORTER BARREL ASSEMBLER HELPER [address] [facility] [place], [place] [phone] 09/18/2024 1:00 PM SUPERVISOR COMPOUNDING AND FINISHING Office Visit [facility] [address] [place] [phone] Denise Woodson Ra, MAIL HANDLER SORTER BARREL ASSEMBLER HELPER [address] [facility] [place], [place] 1733768 09/29/2024 9:00 AM SUPERVISOR COMPOUNDING AND FINISHING Virtual Visit [facility] Neurology [address] [phone] Randy Maradiaga, [address] [address] 10/09/2024 1:20 PM SUPERVISOR COMPOUNDING AND FINISHING Office Visit [facility] 6405 [facility] [address] [place] [phone] Danna Cardenas PA-C 6405 [place], [place] 792765 10/30/2024 4:00 PM SUPERVISOR COMPOUNDING AND FINISHING Virtual Visit [facility] Vascular [place] [address] [place] [phone] Lisa Zambrano MD [address] [place] [address]455 12/29/2024 12:45 PM CDT Office Visit [facility] Pediatric Specialty [facility]0 [facility] Explore[address],[place] [phone] aFbi Coates MD 420 [facility] 75 [place] [address] 12/29/2024 1:45 PM CDT Office Visit [facility] Pediatric Specialty Clinic 2450 [facility] [address],[place] [address] Fabi Coates MD 420 [facility] 75 [place] [address] 06/01/2025 11:15 AM CDT Appointment [facility] Imaging [address] [place] [phone] Robin Zepeda MD [address] [place] [address] 386735 06/04/2025 11:00 AM CDT Office Visit [facility] Neurosurgery Clinic [address] 3rd [place] [phone] Robin Zepeda MD [address] [place] [address] [phone] Usha Simon, MAIL HANDLER SORTER BARREL ASSEMBLER HELPER [address] [place] [address] 849565 documented as of this encounter Visit Diagnoses Not on filedocumented in this encounter Care Teams Superintendent Oil Field Drilling Relationship Specialty Start Date End Date Timmy Perez MD PCP - Obstetrics/Gynecology 03/02/08 08/07/15 Yung Madrigal MD RETIRED PCP - Orthopaedics Orthopedics 08/26/12 01/20/24 Winston Villatoro OD [facility] [place] [address] [place] [address] PCP - Ophthalmology Ophthalmology 02/11/13 Apple Sykes MD [facility] [place] [address] [place] [address] PCP - General Family Practice 05/04/13 10/25/16 Westley Bates MD XXX RETIRED XXX [address] [place] [address] PCP - ENT Otolaryngology 05/14/13 07/28/18 Alessandra Cabrales APRN BARREL ASSEMBLER HELPER [address] [facility] [place] [address] PCP - General Nurse Practitioner 10/26/16 02/06/17 Clara Cornell MD [address] [facility] [place] [address] PCP - General Internal Medicine 02/07/17 09/20/20 Clraa Cornell MD 8675 [place] [address] PCP - Assigned PCP 01/17/17 11/18/18 Denise Woodson Ra, APRN BARREL ASSEMBLER HELPER [address] [place] [address] PCP - General Family Practice 09/21/20 Clara Cornell MD 8675 [facility] [place] [address] Assigned PCP 01/17/17 07/16/20 Denise Woodson Ra, APRN BARREL ASSEMBLER HELPER [address] [place] [address] Assigned PCP 07/17/20 Usha Simon APRN BARREL ASSEMBLER HELPER [address] [address] Nurse Practitioner Neurological Surgery 01/24/24 Dangelo Salinas MD [address] [place] [address] Neurology 01/27/24 Usha Simon APRN BARREL ASSEMBLER HELPER [address] [place] [address] Assigned Neuroscience Provider 02/06/24 03/07/24 Anastasia Stearns, RN Lead Drier Unloader 02/06/24 Germaine Lopez, W Community Health Worker Primary Care - CC 02/18/24 Robin Zepeda MD [address] [place] [address] Assigned Neuroscience Provider 03/08/24 05/07/24 Lisa Zambrano MD [address] [place] [address] Assigned Heart and Vascular Provider 05/08/24 07/07/24 Raul Hoyos MD [address] [address] Assigned Neuroscience Provider 05/08/24 07/07/24 Joya Lira [facility] [address] [place] [address] Pharmacist Pharmacist 05/25/24 Joya Lira [facility] [address] [place] [address] Assigned MTM Pharmacist 06/08/24 Fabi Coates MD 420 [facility] 75 [place], [place] 109965 Genetics, Clinical 06/18/24 Robin Zepeda MD 909 [facility] KW[address]32MG [place], [place] 685075 Assigned Neuroscience Provider 07/08/24 Danna Cardenas PA-C 6405 [place] [address] Assigned Heart and Vascular Provider 07/08/24 Felicita Desai, RN Lead Drier Unloader 07/14/24 documented as of this encounter
--- OUTSIDE RECORDS SUMMARY | 2024-07-16 13:58 | XMS_ITS | Encounter Summary ---
Author Organization [facility] [place] Address [address] [place] [address] Care Team Providers Care Inspector Machine Cut Glass Name Role Phone Timmy Perez MD Unavailable Unavailable Yung Madrigal MD Unavailable Unavailable Winston Villatoro OD Unavailable [phone] Apple Sykes MD Primary Care Provider Unavailab Westley Vera MD Unavailable [phone] GeorginaAlessandra Gómez APRN MACHINE CASTINGS PLASTERER Primary Car e Provider Serum, Clara Garland MD Primary Care Provider Serum, Clara Garland MD Unavailable [phone] Serum, Clara Garland MD Unavailable Denise Woodson Ra, APRN MACHINE CASTINGS PLASTERER Unavailable + [phone] Denise Woodson Ra, APRN MACHINE CASTINGS PLASTERER Primary Care Provid er Usha Simon APRN MACHINE CASTINGS PLASTERER Unavailable + [phone] Dangelo Salinas MD Unavailable Usha Simon FOOD AND BEVERAGE OPERATIONS MANAGER MACHINE CASTINGS PLASTERER Unavailable + [phone] Anastasia Stearns RN Unavailable [phone] Germaine Lopez CHW Unavailable [phone] Robin Zepeda MD Unavailable [phone] Lisa Zambrano MD Unavailable + [phone] Raul Hoyos MD Unavailable SorayaKeilaJoya [facility] Unavailable [phone] Joya Lira [facility] Unavailable [phone] Fabi Coates MD Unavailable [phone] DuaneRobin MD Unavailable [phone] Danna Cardenas PA-C Unavailable [phone] Felicita Desai RN Unavailable Unavailab le Encounter Details Date Type Department Care Team (Late st Contact Info) Description 05/19/2013 MyC Medical Advice [facility] [place] Orthoped[facility] [address] [place] [phone] Yung Madrigal MD RETIRED Social History Tobacco Use Types Packs/Day Years Used Date Smoking Tobacco: Never Smokeless Tobacco: Never Alcohol Use Standard Drinks/Week Comments Yes 0 (1 standard drink = 0.6 oz pur e alcohol) minimal Comments No Sex and Gender Information Value Date Recorded Sex Assigned at Not on file Legal Sex 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 CASHIER GAMBLING Gender Identity Not on file Sexual Orientation Not on file 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 [address] [place], [place] [phone] 07/30/2024 8:30 AM CASHIER GAMBLING Virtual Visit [facility] [address] [address] Randy Maradiaga, [address] [place] [address] 08/04/2024 12:00 PM CASHIER GAMBLING Virtual Visit [facility] [place] [address] [place] [address] OlayinkaanselmoledyNeishazohraanaly, [facility] [address] [place] [address] 08/04/2024 3:30 PM CASHIER GAMBLING [facility] [address] [place] [phone] Denise Woodson Ra, FOOD AND BEVERAGE OPERATIONS MANAGER MACHINE CASTINGS PLASTERER [address] [place], [place] [phone] 08/07/2024 1:00 PM CASHIER GAMBLING Appointment [facility] [address] [facility] [address] [place] [phone] Danan Cardenas PA-C 6405 [place] [address] 08/10/2024 12:30 PM CASHIER GAMBLING Virtual Visit [facility] [address] [phone] Robin Zepeda MD [address] [place] [address] 08/17/2024 12:30 PM CASHIER GAMBLING Office Visit [facility] [address] [phone] Robin Zepeda MD [address] [place] [address] 447925 Tulio Ogden, PhD [address] [address] 09/04/2024 11:00 AM CASHIER GAMBLING [facility] [address] [place] [phone] Denise Woodson Ra, FOOD AND BEVERAGE OPERATIONS MANAGER MACHINE CASTINGS PLASTERER [address] [facility] [place] [place] [phone] 09/18/2024 1:00 PM CASHIER GAMBLING Office Visit [facility] [address] [place] [phone] Denise Woodson Ra, FOOD AND BEVERAGE OPERATIONS MANAGER MACHINE CASTINGS PLASTERER [address] [facility] [place], [place] [phone] 09/29/2024 9:00 AM CASHIER GAMBLING Virtual Visit [facility] Neurology [address] [phone] Randy Maradiaga, [address] [address] 10/09/2024 1:20 PM CASHIER GAMBLING Office Visit [facility] [address] [facility] [address] [place] [phone] Danna Cardenas PA-C 6405 [place], [place] 297485 10/30/2024 4:00 PM CASHIER GAMBLING Virtual Visit [facility] Vascular [place] [address] [place] [phone] Lisa Zambrano MD [address] [place] [address] 12/29/2024 12:45 PM CDT Office Visit [facility] Explore[address],[place] [phone] Fabi Coates MD 420 [facility] 75 [place] [address] 12/29/2024 1:45 PM CDT Office Visit [facility] 2450 [facility] [address],[place] [address] Fabi Coates MD 420 [facility] EMERG[facility]MENT 75 [place] [address] 06/01/2025 11:15 AM CDT Appointment [facility] Imaging [address] [place] [phone] Robin Zepeda MD [address] [place] [address]99415 06/04/2025 11:00 AM CDT Office Visit [facility] Neurosurgery Clinic [address] 3rd [place] [phone] Robin Zepeda MD [address] [place] [address] 475705 Usha Simon, FOOD AND BEVERAGE OPERATIONS MANAGER MACHINE CASTINGS PLASTERER [address] [place] [address] [phone] documented as of this encounter Visit Diagnoses Not on filedocumented in this encounter Care Teams Inspector Machine Cut Glass Relationship Specialty Start Date End Date Timmy Perez MD PCP - Obstetrics/Gynecology 03/02/08 08/07/15 Yung Madrigal MD RETIRED PCP - Orthopaedics Orthopedics 08/26/12 01/20/24 Winston Villatoro OD [facility] [place] [address] [place] [address] PCP - Ophthalmology Ophthalmology 02/11/13 Apple Sykes MD [facility] [place] [address] [place] [address] PCP - General Family Practice 05/04/13 10/25/16 Westley Bates MD XXX RETIRED XXX [address] [place] [address] PCP - ENT Otolaryngology 05/14/13 07/28/18 Alessandra Cabrales APRN MACHINE CASTINGS PLASTERER [address] [facility] [place] [address] PCP - General Nurse Practitioner 10/26/16 02/06/17 Clara Cornell MD [address] [facility] [place] [address] PCP - General Internal Medicine 02/07/17 09/20/20 Clara Cornell MD 8675 [place] [address] PCP - Assigned PCP 01/17/17 11/18/18 Denise Woodson Ra, APRN MACHINE CASTINGS PLASTERER [address] [place] [address] PCP - General Family Practice 09/21/20 Clara Cornell MD [address]75 [facility] [place] [address] Assigned PCP 01/17/17 07/16/20 Denise Woodson Ra, APRN MACHINE CASTINGS PLASTERER [address] [place] [address] Assigned PCP 07/17/20 Usha Simon APRN MACHINE CASTINGS PLASTERER [address] [address] Nurse Practitioner Neurological Surgery 01/24/24 Dangelo Salinas MD [address] [place] [address] Neurology 01/27/24 Usha Simon APRN MACHINE CASTINGS PLASTERER [address] [place] [address] Assigned Neuroscience Provider 02/06/24 03/07/24 Anastasia Stearns, RN Lead Charhouse Worker 02/06/24 Germaine Lopez, W Community Health Worker Primary Care - CC 02/18/24 Robin Zepeda MD [address] [place] [address] Assigned Neuroscience Provider 03/08/24 05/07/24 Lisa Zambrano MD [address] [place] [address] Assigned Heart and Vascular Provider 05/08/24 07/07/24 Raul Hoyos MD [address] [address] Assigned Neuroscience Provider 05/08/24 07/07/24 Joya Lira [facility] [address] [place] [address] Pharmacist Pharmacist 05/25/24 Joya Lira [facility] [address] [place] [address] Assigned MTM Pharmacist 06/08/24 Fabi Coates MD 420 [facility] EMERGENC[facility] DEPARTMENT 75 [place], [place] [phone] Genetics, Clinical 06/18/24 Robin Zepeda MD 909 [facility] [id number] [place], [place] 121675 Assigned Neuroscience Provider 07/08/24 Danna Cardenas PA-C 6405 [place] [address] Assigned Heart and Vascular Provider 07/08/24 Felicita Desai, RN Lead Charhouse Worker 07/14/24 documented as of this encounter
--- OUTSIDE RECORDS SUMMARY | 2024-07-16 13:58 | XMS_ITS | Encounter Summary ---
Author Organization [place] Address [address] [place] [address] Care Team Providers Care Gum Dipper Name Role Phone Yung Madrigal MD Unavailable Unavailable Winston Villatoro OD Unavailable [phone] Denise Woodson Ra, APRN EDUCATION AND DEVELOPMENT MANAGER Unavailable + [phone] Denise Woodson Ra, APRN EDUCATION AND DEVELOPMENT MANAGER Primary Care Provid er Usha Simon APRN EDUCATION AND DEVELOPMENT MANAGER Unavailable Dangelo Salinas MD Unavailable Usha Siomn APRN EDUCATION AND DEVELOPMENT MANAGER Unavailable [phone] Anastasia Stearns RN Unavailable [phone] Germaine Lopez CHW Unavailable [phone] Robin Zepeda MD Unavailable Lisa Zambrano MD Unavailable Raul Hoyos MD Unavailable [phone] Jyoa Lira [facility] Unavailable [phone] Joya Lira [facility] Unavailable [phone] Fabi Coates MD Unavailable [phone] Robin Zepeda MD Unavailable [phone] Danna CardenasC Unavailable [phone] Lloyd, Felicita M RN Unavailable Unavailab le Reason for Visit * Reason Comments Medication Refill Encounter Details Date Type Department Care Team (Late st Contact Info) Description 06/11/2021 Refill [facility] [address] [facility] [address] [place] [address] Denise Woodson Ra, CONDUIT BENDER EDUCATION AND DEVELOPMENT MANAGER [address] [facility] [address] Medication Refill Social History Tobacco Use Types Packs/Day Years Used Date Smoking Tobacco: Never Smokeless Tobacco: Never Alcohol Use Standard Drinks/Week Comments Not Currently 0 (1 standard drink = 0.6 oz pur e alcohol) minimal PHQ-2 Answer Date Recorded PHQ-2 Score 0 01/04/2021 Comments No Sex and Gender Information Value Date Recorded Sex Assigned at Not on file Legal Sex 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 SOLUTIONS ANALYST Gender Identity Not on file Sexual Orientation [...] st Contact Info) Description 07/20/2024 12:00 PM SOLUTIONS ANALYST Virtual Visit [facility] [address] [place] [phone] Denise Woodson Ra, CONDUIT BENDER EDUCATION AND DEVELOPMENT MANAGER [address] [place] [address] 07/30/2024 8:30 AM SOLUTIONS ANALYST Virtual Visit [facility] Neurology [address] 3rd [place] [address] Randy Maradiaga, [address] [place] [address] 08/04/2024 12:00 PM SOLUTIONS ANALYST Virtual Visit [facility] Mental Health and Addiction [address] [place] [phone] Sinyigaya, Speciose, MANUFACTURING ENGINEERING TECHNOLOGIST [address] [place] [address] 08/04/2024 3:30 PM SOLUTIONS ANALYST Virtual Visit [facility] [address] [place] [phone] Denise Woodson Ra, CONDUIT BENDER EDUCATION AND DEVELOPMENT MANAGER [address] [place], [place] [phone] 08/07/2024 1:00 PM SOLUTIONS ANALYST Appointment [facility] Heart Care [address] [facility] [address] [place] [address] Danna Cardenas PANilesC 6405 [place] [address] 08/10/2024 12:30 PM SOLUTIONS ANALYST Virtual Visit [facility] Neuropsychology [address] [phone] Robin Zepeda MD [address] [place] [address] 607445 08/17/2024 12:30 PM SOLUTIONS ANALYST Office Visit [facility] Neuropsychology [address] [phone] Robin Zepeda MD [address] [place] [address] Tulio Ogden, PhD [address] [address] 09/04/2024 11:00 AM SOLUTIONS ANALYST Office Visit [facility] [address] [place] [address] Denise Woodson Ra, CONDUIT BENDER EDUCATION AND DEVELOPMENT MANAGER [address] [place] [address] 09/18/2024 1:00 PM SOLUTIONS ANALYST Office Visit [facility] [address] [place] [phone] Denise Woodson Ra, CONDUIT BENDER EDUCATION AND DEVELOPMENT MANAGER [address] [place] [address] 09/29/2024 9:00 AM SOLUTIONS ANALYST Virtual Visit [facility] Neurology [facility] 909 [facility] 3rd [place] [phone] Randy Maradiaga, [address] [place] [phone] 10/09/2024 1:20 PM SOLUTIONS ANALYST Office Visit [facility] Heart [facility] 6405 [facility] [address] [place] [phone] Danna Cardenas PA-C 6405 [place] [address] 10/30/2024 4:00 PM SOLUTIONS ANALYST Virtual Visit [facility] Vascular [facility] [address] [place] [phone] Lisa Zambrano MD [address] [place] [address] 12/29/2024 12:45 PM CDT Office Visit [facility] [facility] [address],[place] [phone] Fabi Coates MD 420 [facility] 75 [place], [place] [address] 12/29/2024 1:45 PM CDT Office Visit [facility]ty [facility] 2450 [facility] 12th [address],[place] [phone] Fabi Coates MD 420 [facility] 75 [place] [address] 06/01/2025 11:15 AM CDT Appointment [facility] Imaging [address] [place] [phone] Robin Zepeda MD [address] [place] [address] 915405 06/04/2025 11:00 AM CDT Office Visit [facility] Neurosurgery [address] 3rd [place] [phone] Robin Zepeda MD [address] [place] [address] Usha Simon APRN EDUCATION AND DEVELOPMENT MANAGER [address] [place] [address] documented as of this encounter Visit Diagnoses Diagnosis Insomnia, unspecified type documented in this encounter Additional Health Concerns Assessment Noted Time PHQ-9 Depression Total Score: 0 01/05/20 21 9:31 AM CDT documented as of this encounter Care Teams Gum Dipper Relationship Specialty Start Date End Date Yung Madrigal MD RETIRED PCP - Orthopaedics Orthopedics 08/26/12 01/20/24 Winston Villatoro OD [facility] [place] [address] [facility] [address] [place] [address] PCP - Ophthalmology Ophthalmology 02/11/13 Denise Woodson Ra, APRN EDUCATION AND DEVELOPMENT MANAGER [address] [place] [address] PCP - General Family Practice 09/21/20 Denise Woodson Ra, APRN EDUCATION AND DEVELOPMENT MANAGER [address] [place] [address] Assigned PCP 07/17/20 Usha Simon APRN EDUCATION AND DEVELOPMENT MANAGER [address] 1759[address] Nurse Practitioner Neurological Surgery 01/24/24 Dangelo Salinas MD [address] [place], [place] [phone] Neurology 01/27/24 Usha Simon APRN EDUCATION AND DEVELOPMENT MANAGER [address] [phone] Assigned Neuroscience Provider 02/06/24 03/07/24 Anastasia Stearns, RN Lead Pharm Tech 02/06/24 Germaine Lopez, W Community Health Worker Primary Care - CC 02/18/24 Robin Zepeda MD [address] [phone] Assigned Neuroscience Provider 03/08/24 05/07/24 Lisa Zambrano MD [address] [place] [id number] Assigned Heart and Vascular Provider 05/08/24 07/07/24 Raul Hoyos MD 909 [facility] [place], [place] [address] Assigned Neuroscience Provider 05/08/24 07/07/24 Joya Lira [facility] [address] [facility] [place] [address] Pharmacist Pharmacist 05/25/24 Joya Lira [facility] [address] [address] Assigned MTM Pharmacist 06/08/24 Fabi Coates MD [address] [place] [address] 75 [place], [place] 8[address] Genetics, Clinical 06/18/24 Robin Zepeda MD 909 [facility] [place], [place] [address]45 Assigned Neuroscience Provider 07/08/24 Danna Cardenas PA-C [address] [place] [address] 919805 Assigned Heart and Vascular Provider 07/08/24 Felicita Desai, RN Lead Pharm Tech 07/14/24 documented as of this encounter
--- OUTSIDE RECORDS SUMMARY | 2024-07-16 13:58 | XMS_ITS | Encounter Summary ---
Author Organization [place] Address [address] [place] [address] Care Team Providers Care Principal Statistical Scientist Name Role Phone Yung Madrigal MD Unavailable Unavailable Winston Villatoro OD Unavailable +[phone] Denise Woodson Ra, APRN [facility] GENER[facility] Unavailable + [phone] Denise Woodson Ra, APRN ORTHOPAEDIC GENERAL Primary Care Provid er Usha Simon APRN ORTHOPAEDIC GENERAL Unavailable Dangelo Salinas MD Unavailable Usha Simon APRN ORTHOPAEDIC GENERAL Unavailable [phone] Anastasia Stearns RN Unavailable +[phone] Germaine Lopez CHW Unavailable +[phone] Robin Zepeda MD Unavailable Lisa Zambrano MD Unavailable Raul Hoyos MD Unavailable Joya Lira [facility] Unavailable [phone] Joya Lira [facility] Unavailable +[phone] Fabi Coates MD Unavailable [phone] Robin Zepeda MD Unavailable [phone] Danna CardenasC Unavailable +[phone] Lloyd, Felicita M RN Unavailable Unavailab le Encounter Details Date Type Department Care Team (Late Contact Info) Description 12/30/2020 MyC Medical Advice [facility] [address] [place] [phone] Jessica Phipps, BIBI Social History Tobacco Use Types Packs/Day Years Used Date Smoking Tobacco: Never Smokeless Tobacco: Never Alcohol Use Standard Drinks/Week Comments Yes 0 (1 standard drink = 0.6 oz pur e alcohol) minimal PHQ-2 Answer Date Recorded PHQ-2 Score 2 07/13/2020 Comments No Sex and Gender Information Value Date Recorded Sex Assigned at Not on file Legal Sex 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 RAIL SIGNAL WORKER Gender Identity Not on file Sexual Orientation Not on file 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 Not on file [...] (Late Contact Info) Description 07/20/2024 12:00 PM RAIL SIGNAL WORKER Virtual Visit [facility] [address] [place] [phone] Denise Woodson Ra, SENIOR MATERIALS ANALYST [facility]IC GENERAL [address] [place], [place] [phone] 07/30/2024 8:30 AM RAIL SIGNAL WORKER Virtual Visit [facility] [address] 3rd [place] [address] Randy Maradiaga, [address] [address] 08/04/2024 12:00 PM RAIL SIGNAL WORKER Virtual Visit [facility] [address] [place] [address] Neisha Salasiose, ASSEMBLY REPAIRER [address] [place] [address] 08/04/2024 3:30 PM RAIL SIGNAL WORKER Virtual Visit [facility] [address] [place] [address] Denise Woodson Ra, SENIOR MATERIALS ANALYST [facility] [address] [place], [place] [phone] 08/07/2024 1:00 PM RAIL SIGNAL WORKER Appointment [facility] [address] [facility] [address] [place] [phone] Danna Cardenas PA-C 6405 [place] [address] 08/10/2024 12:30 PM RAIL SIGNAL WORKER Virtual Visit [facility] Neuropsychology [address] [phone] Robin Zepeda MD [address] [place] [address] 08/17/2024 12:30 PM RAIL SIGNAL WORKER Office Visit [facility] Neuropsychology [address] [phone] Robin Zepeda MD [address] [place] [address] Tulio Ogden, PhD [address] [address] 09/04/2024 11:00 AM RAIL SIGNAL WORKER Office Visit [facility] [address] [place] [address] Denise Woodson Ra, SENIOR MATERIALS ANALYST [facility] GENER[facility] [address] [place] [address] 09/18/2024 1:00 PM RAIL SIGNAL WORKER Office Visit [facility] [address] [place] [phone] Denise Woodson Ra, SENIOR MATERIALS ANALYST [facility] [address] [place] [address] 09/29/2024 9:00 AM RAIL SIGNAL WORKER Virtual Visit [facility] [employer] 909 [facility] 3rd [place] [phone] Randy Maradiaga, [address] [place] [address]16[address] 10/09/2024 1:20 PM RAIL SIGNAL WORKER Office Visit [facility] 6405 [facility] [address] [place] [phone] Danna Cardenas PA-C 6405 [place], [place] [address]18[address] 10/30/2024 4:00 PM RAIL SIGNAL WORKER Virtual Visit [facility] V[facility] [place] [address] [place] [phone] Lisa Zambrano MD [address] [place] [address] 12/29/2024 12:45 PM CDT Office Visit [facility] 2450 [facility] [address] Fl[address],[place] [phone] Fabi Coates MD 420 [facility] 75 [place], [place] 2[address] 12/29/2024 1:45 PM CDT Office Visit [facility] 2450 [facility] Explorer [facility] 12th Flr,[place] [phone] Fabi Coates MD 420 [facility] 75 [place] [address] 06/01/2025 11:15 AM CDT Appointment [facility] Center Imaging [address] [place] [address] [place] [phone] Robin Zepeda MD [address] [place] [address] 06/04/2025 11:00 AM CDT Office Visit [facility] Neurosurgery [address] 3rd [place] [phone] Robin Zepeda MD [address] [place] [address] Usha Simon APRN [address] [address] documented as of this encounter Visit Diagnoses Not on filedocumented in this encounter Additional Health Concerns Assessment Noted Time PHQ-9 Depression Total Score: 0 06/15/20 19 7:09 PM CDT documented as of this encounter Care Teams Principal Statistical Scientist Relationship Specialty Start Date End Date Yung Madrigal MD RETIRED PCP - Orthopaedics Orthopedics 08/26/12 01/20/24 Winston Villatoro OD [facility] [place] [address] [facility] [address] [place] [address] PCP - Ophthalmology Ophthalmology 02/11/13 Denise Woodson Ra, APRN ORTHOPAEDIC GENERAL [address] [place] [address] PCP - General Family Practice 09/21/20 Denise Woodson Ra, APRN [facility]THOPA[facility]IC GENERAL [address] [place] [address] Assigned PCP 07/17/20 Usha Simon APRN ORTHOPAEDIC GENERAL [address] 381065 Nurse Practitioner Neurological Surgery 01/24/24 Dangelo Salinas MD [address] [place], [place] [phone] Neurology 01/27/24 Usha Simon APRN ORTHOPAEDIC GENERAL [address] [id number] Assigned Neuroscience Provider 02/06/24 03/07/24 Anastasia Stearns, RN Lead Custom Shoe Designer And Maker 02/06/24 Germaine Lopez, W Community Health Worker Primary Care - CC 02/18/24 Robin Zepeda MD [address] [phone] Assigned Neuroscience Provider 03/08/24 05/07/24 Lisa Zambraon MD [address] [place] [address] Assigned Heart and Vascular Provider 05/08/24 07/07/24 Raul Hoyos MD 909 [facility] [place] [address] Assigned Neuroscience Provider 05/08/24 07/07/24 Joya Lira [facility] [address] [place] [address] Pharmacist Pharmacist 05/25/24 Joya Lira [facility] [address] [place] [address] Assigned MTM Pharmacist 06/08/24 Fabi Coates MD [address] [place] [address] 75 [place], [place] 721485 Genetics, Clinical 06/18/24 Robin Zepeda MD 909 [facility]121[address] [place], [place] [address] Assigned Neuroscience Provider 07/08/24 Danna Cardenas PA-C [address] [place] [address] [id number] Assigned Heart and Vascular Provider 07/08/24 Felicita Desai, RN Lead Custom Shoe Designer And Maker 07/14/24 documented as of this encounter
--- OUTSIDE RECORDS SUMMARY | 2024-07-16 13:58 | XMS_ITS | Encounter Summary ---
Author Organization [place] Address [address] [place] [address] Care Team Providers Care Global Lead Name Role Phone Timmy Perez MD Unavailable Unavailable Yung Madrigal MD Unavailable Unavailable Winston Villatoro OD Unavailable [phone] Apple Sykes MD Primary Care Provider Unavailab Westley Vera MD Unavailable [phone] GeorginaAlessandra Gómez APRN LEARNING CONSULTANT Primary Car e Provider Serum, Clara Garland MD Primary Care Provider Serum, Clara Garland MD Unavailable [phone] Serum, Clara Garland MD Unavailable [phone] Denise Woodson Ra, APRN LEARNING CONSULTANT Unavailable + [phone] Denise Woodson Ra, APRN LEARNING CONSULTANT Primary Care Provid er Usha Simon APRN LEARNING CONSULTANT Unavailable + [phone] Dangelo Salinas MD Unavailable Usha Simon LIQUIFIED NATURAL GAS TECHNICIAN LEARNING CONSULTANT Unavailable + [phone] Anastasia Stearns RN Unavailable [phone] Germaine Lopez CHW Unavailable [phone] Robin Zepeda MD Unavailable [phone] Lisa Zambrano MD Unavailable + [phone] Raul Hoyos MD Unavailable [phone] SorayaKeilaJoya [facility] Unavailable [phone] Joya Lira [facility] Unavailable [phone] Fabi Coates MD Unavailable [phone] DuaneRobin MD Unavailable [phone] Danna Cardenas PA-C Unavailable [phone] Felicita Desai RN Unavailable Unavailab Reason for Visit * Reason Onset Date Comments MyChart Communication 05/30/2013 Encounter Details Date Type Department Care Team (Latest Contact Info) Description 05/30/2013 MyC Medical Advice [facility] in [address] [address] Apple Sykes MD MyChart Communication Social History Tobacco Use Types Packs/Day Years Used Date Smoking Tobacco: Never Smokeless Tobacco: Never Alcohol Use Standard Drinks/Week Comments Yes 0 (1 standard drink = 0.6 oz pur e alcohol) minimal Comments No Sex and Gender Information Value Date Recorded Sex Assigned at Not on file Legal Sex 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 VENETIAN BLIND WORKER Gender Identity Not on file Sexual Orientation Not on file 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 documented as of this encounter Plan of Treatment Upcoming Encounters Date Type Department Care Team (Late st Contact Info) Description 07/20/2024 12:00 PM VENETIAN BLIND WORKER Virtual Visit [facility] [address] [place] [address] Denise Woodson Ra, LIQUIFIED NATURAL GAS TECHNICIAN LEARNING CONSULTANT [address] [place], [place] [phone] 07/30/2024 8:30 AM VENETIAN BLIND WORKER Virtual Visit [facility] [address] [place] [address] Randy Maradiaga, [address] [address] 08/04/2024 12:00 PM VENETIAN BLIND WORKER Virtual Visit [facility] Amorita [address] [place] [address] Arthur Salas, [facility] [address] [place] [address] 08/04/2024 3:30 PM VENETIAN BLIND WORKER [facility] [address] [place] [phone] Denise Woodson Ra, LIQUIFIED NATURAL GAS TECHNICIAN LEARNING CONSULTANT [address] [place], [place] [phone] 08/07/2024 1:00 PM VENETIAN BLIND WORKER Appointment [facility] Heart Care 6405 [facility] [address] [place] [phone] Danna Cardenas, PA-C 6405 [place], [place] 8[address] 08/10/2024 12:30 PM VENETIAN BLIND WORKER Virtual Visit [facility] Neuropsychology [address] [phone] Robin Zepeda MD [address] [place] [address] 08/17/2024 12:30 PM VENETIAN BLIND WORKER Office Visit [facility] Neuropsychology [address] [phone] Robin Zepeda MD [address] [place] [address] 4670[address] Tulio Ogden, PhD [address] [address] 09/04/2024 11:00 AM VENETIAN BLIND WORKER Office Visit [facility] [address] [place] [phone] Denise Woodson Ra, LIQUIFIED NATURAL GAS TECHNICIAN LEARNING CONSULTANT [address] [facility] [place], [place] [address]67[address] 09/18/2024 1:00 PM VENETIAN BLIND WORKER Office Visit [facility] [address] [place] [phone] Denise Woodson Ra, LIQUIFIED NATURAL GAS TECHNICIAN LEARNING CONSULTANT [address] [facility] [place], [place] [address] 09/29/2024 9:00 AM VENETIAN BLIND WORKER Virtual Visit [facility] Neurology [address] [phone] Randy Maradiaga, [address] [address] 10/09/2024 1:20 PM VENETIAN BLIND WORKER Office Visit [facility] Heart [facility] 6405 [facility] [address] [place] [phone] Danna Cardenas PA-C 6405 [place] [address] 10/30/2024 4:00 PM VENETIAN BLIND WORKER Virtual Visit [facility] Vascular [facility] [address] [place] [phone] Lisa Zambrano MD [address] [place] [address] 12/29/2024 12:45 PM CDT Office Visit [facility] 2450 [facility] Explorer [address] [phone] Fabi Coates MD [address] 95[address] 12/29/2024 1:45 PM CDT Office Visit [facility] 2450 [facility] Explorer [address] [phone] Fabi Coates MD [address] [address] 06/01/2025 11:15 AM CDT Appointment [facility] Imaging [address] [place] [address] [place] [phone] Robin Zepeda MD [address] [place] [address] 7724[address] 06/04/2025 11:00 AM CDT Office Visit [facility] Neurosurgery [address] 3rd [place] [phone] Robin Zepeda MD [address] [place] [address] Usha Simon APRN [address] [address] documented as of this encounter Visit Diagnoses Not on filedocumented in this encounter Care Teams Global Lead Relationship Specialty Start Date End Date Timmy Perez MD PCP - Obstetrics/Gynecology 03/02/08 08/07/15 Yung Madrigal MD RETIRED PCP - Orthopaedics Orthopedics 08/26/12 01/20/24 Winston Villatoro OD [facility] [place] [address] [place] [address] PCP - Ophthalmology Ophthalmology 02/11/13 Apple Sykes MD [facility] [place] [address] [place] [address] PCP - General Family Practice 05/04/13 10/25/16 Westley Bates MD XXX RETIRED XXX [address] [place] [address] PCP - ENT Otolaryngology 05/14/13 07/28/18 Alessandra Cabrales APRN LEARNING CONSULTANT [address] [facility] [address] [place] [address] PCP - General Nurse Practitioner 10/26/16 02/06/17 Clara Cornell MD [address] [facility] [address] [place] [address] PCP - General Internal Medicine 02/07/17 09/20/20 Clara Cornell MD 8675 [place] [address] PCP - Assigned PCP 01/17/17 11/18/18 Denise Woodson Ra, LIQUIFIED NATURAL GAS TECHNICIAN LEARNING CONSULTANT [address] [place] [address] PCP - General Family Practice 09/21/20 Clara Cornell MD 8675 [facility] [place] [address] Assigned PCP 01/17/17 07/16/20 Denise oWodson Ra LIQUIFIED NATURAL GAS TECHNICIAN LEARNING CONSULTANT [address] [address] [facility] [address] Assigned PCP 07/17/20 Usha Simon APRN LEARNING CONSULTANT [address] [address] Nurse Practitioner Neurological Surgery 01/24/24 Dangelo Salinas MD [address] [place] [address] Neurology 01/27/24 Usha Simon APRN LEARNING CONSULTANT [address] [place] [address] 611045 Assigned Neuroscience Provider 02/06/24 03/07/24 Anastasia Stearns, RN Lead Set Up Machinist 02/06/24 Germaine Lopez, W Community Health Worker Primary Care - CC 02/18/24 Robin Zepeda MD [address] [place] [address] Assigned Neuroscience Provider 03/08/24 05/07/24 Lisa Zambrano MD [address] [place] [address] Assigned Heart and Vascular Provider 05/08/24 07/07/24 Raul Hoyos MD [address] [place] [address] 121265 Assigned Neuroscience Provider 05/08/24 07/07/24 Joya Lira [facility] [address] [address] Pharmacist Pharmacist 05/25/24 Joya Lira [facility] [address] [place] [address] Assigned MTM Pharmacist 06/08/24 Fabi Coates MD 420 [facility] 75 [place], [place] 2623[address] Genetics, Clinical 06/18/24 Robin Zepeda MD 909 [facility] [address] Assigned Neuroscience Provider 07/08/24 Danna Cardenas PA-C 6405 [place] [address] Assigned Heart and Vascular Provider 07/08/24 Felicita Desai, RN Lead Set Up Machinist 07/14/24 documented as of this encounter
--- OUTSIDE RECORDS SUMMARY | 2024-07-16 13:58 | XMS_ITS | Encounter Summary ---
Author Organization [place] Address [address] [place] [address] Care Team Providers Care [employer] Driver Name Role Phone Yung Madrigal MD Unavailable Unavailable Winston Villatoro OD Unavailable [phone] Denise Woodson Ra, APRN DATA ACQUISITION TECHNICIAN Unavailable + [phone] Denise Woodson Ra, APRN DATA ACQUISITION TECHNICIAN Primary Care Provid er Usha Simon APRN DATA ACQUISITION TECHNICIAN Unavailable Dangelo Salinas MD Unavailable Usha Simon APRN DATA ACQUISITION TECHNICIAN Unavailable [phone] Anastasia Stearns RN Unavailable [phone] Germaine Lopez CHW Unavailable [phone] Robin Zepeda MD Unavailable Lisa Zambrano MD Unavailable Raul Hoyos MD Unavailable Joya Lira [facility] Unavailable [phone] Joya Lira [facility] Unavailable [phone] Fabi Coates MD Unavailable [phone] Robin Zepeda MD Unavailable Danna CardenasC Unavailable [phone] Felicita Desai RN Unavailable Unavailab le Encounter Details Date Type Department Care Team (Late st Contact Info) Description 06/13/2021 MyC Medical Advice M [facility] [place] [address] [place] [address] Denise Woodson Ra, SPRAYER OPERATOR DATA ACQUISITION TECHNICIAN [address] [facility] [place], [place] [id number] Insomnia, unspecified type Social History Tobacco Use [...] on file Legal Sex 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 ASSIGNMENT AGENT Gender Identity Not on file Sexual Orientation Not on file 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 They stated they do not have a refill on file. Prescription approved per [facility] protocol. Mary Caraballo RN on 06/13/2021 at 5:18 PM documented in this encounter Plan of Treatment Upcoming Encounters Date Type Department Care Team (Late st Contact Info) Description 07/20/2024 12:00 PM ASSIGNMENT AGENT Virtual Visit [facility] [place] [address] [place] [address] Denise Woodson Ra, SPRAYER OPERATOR DATA ACQUISITION TECHNICIAN [address] [facility] [place], [place] [id number] 07/30/2024 8:30 AM ASSIGNMENT AGENT Virtual Visit [facility] [address] [phone] Randy Maradiaga DO [address] [place] [address] 08/04/2024 12:00 PM ASSIGNMENT AGENT Virtual Visit [facility] [place] [address] [place] [address] OlayinkaArthur forbes, [facility] [address] [place] [address] 08/04/2024 3:30 PM ASSIGNMENT AGENT Virtual Visit [facility] [address] [place] [address] Denise Woodson Ra, SPRAYER OPERATOR [facility] [address] [place] [address] 08/07/2024 1:00 PM ASSIGNMENT AGENT Appoint[address] [facility] 6405 [facility] [address] [place] [phone] Danna Cardenas PA-C 6405 [place], [place] 299665 08/10/2024 12:30 PM ASSIGNMENT AGENT Virtual Visit [facility] Neuropsychology [address] [phone] Robin Zepeda MD [address] [place] [address] [id number] [place] [address] 08/17/2024 12:30 PM ASSIGNMENT AGENT Office Visit [facility] Neuropsychology [address] [phone] Robin Zepeda MD [address] [place] [address] SE [id number] [place] [address] Tulio Ogden, PhD [address] [address] 09/04/2024 11:00 AM ASSIGNMENT AGENT Office Visit [facility] [address] [place] [phone] Denise Woodson Ra, SPRAYER OPERATOR DATA ACQUISITION TECHNICIAN [address] [place], [place] 39268[address] 09/18/2024 1:00 PM ASSIGNMENT AGENT Office Visit [facility] [address] [place] [phone] Denise Woodson Ra, SPRAYER OPERATOR DATA ACQUISITION TECHNICIAN [address] [place], [place] [id number] 09/29/2024 9:00 AM ASSIGNMENT AGENT Virtual Visit [facility] [address] [place] [phone] Randy Maradiaga DO [address] [place] [address] 10/09/2024 1:20 PM ASSIGNMENT AGENT Office Visit [facility] [address] [place] [phone] Danna Cardenas PA-C 4809 [place], [place] 0[address]85 10/30/2024 4:00 PM ASSIGNMENT AGENT Virtual Visit [facility] [place] 9[address]105 Jonathon Lindae [facility] [place] [phone] Lisa Zambrano MD [address] [place] [address] 12/29/2024 12:45 PM CDT Office Visit [facility] [address] [place], [place] [address]e Explorer [address] [phone] Fabi Coates MD [address] [address] 12/29/2024 1:45 PM CDT Office Visit [facility] [address] [place] [address] [phone] Fabi Coates MD [address] 509065 06/01/2025 11:15 AM CDT Appointment [facility] [place] [facility] [address] [facility] [address] [place] [phone] Robin Zepeda MD [address] [place] [address] 4865[address] 06/04/2025 11:00 AM CDT Office Visit [facility] [address] 3rd [place] [phone] Robin Zepeda MD [address] [place] [address] Usha Simon APRN [address] [address] documented as of this encounter Visit Diagnoses Diagnosis Insomnia, unspecified type documented in this encounter Additional Health Concerns Assessment Noted Time PHQ-9 Depression Total Score: 0 01/05/20 21 9:31 AM CDT documented as of this encounter Care Teams Refrigerated Company Driver Relationship Specialty Start Date End Date Yung Madrigal MD RETIRED PCP - Orthopaedics Orthopedics 08/26/12 01/20/24 Winston Villatoro OD [facility] [place] [address] [place] [address] PCP - Ophthalmology Ophthalmology 02/11/13 Denise Woodson Ra, SPRAYER OPERATOR DATA ACQUISITION TECHNICIAN [address] [place] [address] PCP - General Family Practice 09/21/20 Denise Woodson Ra, SPRAYER OPERATOR DATA ACQUISITION TECHNICIAN [address] [place] [place], [place] [phone] Assigned PCP 07/17/20 Usha Simon APRN DATA ACQUISITION TECHNICIAN [address] 849185 Nurse Practitioner Neurological Surgery 01/24/24 Dangelo Salinas MD [address] [place] [address] Neurology 01/27/24 Usha Simon APRN DATA ACQUISITION TECHNICIAN [address] 229[address] Assigned Neuroscience Provider 02/06/24 03/07/24 Anastasia Stearns, RN Lead Corporate Human Resources Manager 02/06/24 Germaine Lopez, W Community Health Worker Primary Care - CC 02/18/24 Robin Zepeda MD [address] [address] Assigned Neuroscience Provider 03/08/24 05/07/24 Lisa Zambrano MD 6405 [facility] [address] [place] [address] Assigned Heart and Vascular Provider 05/08/24 07/07/24 Raul Hoyos MD [address] [place] [address] Assigned Neuroscience Provider 05/08/24 07/07/24 Joya Lira [facility] [address] [place] [address] Pharmacist Pharmacist 05/25/24 Joya Lira [facility] [address] [place] [address] Assigned MTM Pharmacist 06/08/24 Fabi Coates MD [address] [place] [address] 75 [place] [address] Genetics, Clinical 06/18/24 Robin Zepeda MD [address] [place] [address] Assigned Neuroscience Provider 07/08/24 Danna Cardenas PA-C 6405 [place] [address] Assigned Heart and Vascular Provider 07/08/24 Felicita Desai, RN Lead Corporate Human Resources Manager 07/14/24 documented as of this encounter
--- OUTSIDE RECORDS SUMMARY | 2024-07-16 13:58 | XMS_ITS | Encounter Summary ---
Author Organization [place] Address [address] [place] [address] Care Team Providers Care [employer] Installer Name Role Phone Yung Madrigal MD Unavailable Unavailable Winston Villatoro OD Unavailable [phone] Serum, Clara Garland MD Primary Care Provider Serum, Clara Garland MD Unavailable [phone] Denise Woodson Ra SCROLL MACHINE OPERATOR FAMILY SERVICES COORDINATOR Unavailable + [phone] Denise Woodson Ra SCROLL MACHINE OPERATOR FAMILY SERVICES COORDINATOR Primary Care Provid er Usha Simon SCROLL MACHINE OPERATOR FAMILY SERVICES COORDINATOR Unavailable + [phone] Dangelo Salinas MD Unavailable Usha Simon SCROLL MACHINE OPERATOR FAMILY SERVICES COORDINATOR Unavailable + [phone] Anastasia Stearns RN Unavailable [phone] Germaine Lopez CHW Unavailable [phone] Robin Zepead MD Unavailable [phone] Lisa Zambrano MD Unavailable Raul Hoyos MD Unavailable Joya Lira [facility] Unavailable [phone] Joya Lira [facility] Unavailable [phone] Fabi Coates MD Unavailable [phone] Robin Zepeda MD Unavailable Danna Cardenas PA-C Unavailable Felicita Desai RN Unavailable Unavailab le Encounter Details Date Type Department Care Team (Late Contact Info) Description 01/21/2019 MyC Medical Advice [facility] [address] [facility] [address] [place] [address] Maria Eugenia [place] Social History Tobacco Use Types Packs/Day Years Used Date Smoking Tobacco: Never Smokeless Tobacco: Never Alcohol Use Standard Drinks/Week Comments Yes 0 (1 standard drink = 0.6 oz pur e alcohol) minimal PHQ-2 Answer Date Recorded PHQ-2 Score 0 09/23/2018 Comments No Sex and Gender Information Value Date Recorded Sex Assigned at Not on file Legal Sex 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 MERCHANDISING TEAM LEAD Gender Identity Not on file Sexual Orientation Not on file 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 Not on file Not on file Not on file Not on file Not on file documented as of this encounter Plan of Treatment Upcoming Encounters Date Type Department Care Team (Late st Contact Info) Description 07/20/2024 12:00 PM MERCHANDISING TEAM LEAD Virtual Visit [facility] [address] [place] [phone] Denise Woodson Ra, SCROLL MACHINE OPERATOR [facility] [address] [place] [address] 07/30/2024 8:30 AM MERCHANDISING TEAM LEAD Virtual Visit [facility] [address] 3rd [place] [phone] Randy Maradiaga, [address] [address] 08/04/2024 12:00 PM MERCHANDISING TEAM LEAD Virtual Visit [facility] [address] [place] [address] Arthur Salas, [address] [address] 08/04/2024 3:30 PM MERCHANDISING TEAM LEAD [facility] [address] [place] [phone] Denise Woodson Ra, SCROLL MACHINE OPERATOR FAMILY SERVICES COORDINATOR [address] [place], [place] [phone] 08/07/2024 1:00 PM MERCHANDISING TEAM LEAD Appointment [facility] 6[address] [facility] [address] [place] [phone] Danna Cardenas PA-C 6405 [place], [place] 38[address]45 08/10/2024 12:30 PM MERCHANDISING TEAM LEAD Virtual Visit [facility] Neuropsychology [address] [phone] Robin Zepeda MD [address] [place] [address] 695595 08/17/2024 12:30 PM MERCHANDISING TEAM LEAD Office Visit [facility] Neuropsychology [address] [phone] Robin Zepeda MD [address] [place] [address] Tulio Ogden, PhD [address] [address] 09/04/2024 11:00 AM MERCHANDISING TEAM LEAD [facility] [address] [place] [phone] Denise Woodson Ra, SCROLL MACHINE OPERATOR FAMILY SERVICES COORDINATOR [address] [place], [place] [phone] 09/18/2024 1:00 PM MERCHANDISING TEAM LEAD [facility] [address] [place] [phone] Denise Woodson Ra, SCROLL MACHINE OPERATOR FAMILY SERVICES COORDINATOR [address] [place], [place] [phone] 09/29/2024 9:00 AM MERCHANDISING TEAM LEAD Virtual Visit [facility] Neu[facility] [address] [place] [address] 3rd [place] [phone] Randy Maradiaga, [address] 573695 10/09/2024 1:20 PM MERCHANDISING TEAM LEAD Office Visit [facility] Heart [facility] 6405 [facility] [address] [place] [phone] Danna Cardenas PA-C 6405 [place] [address] 10/30/2024 4:00 PM MERCHANDISING TEAM LEAD Virtual Visit [facility] Vascular [place] [address] [place] [phone] Lisa Zambrano MD [address] [place] [address] 12/29/2024 12:45 PM CDT Office Visit [facility] 2450 [facility] 12th Flr,[place] [phone] Fabi Coates MD 420 [facility] 75 [place], [place] [address] 12/29/2024 1:45 PM CDT [facility] [place] [facility] 2450 [facility] 12th Flr,[place] [phone] Fabi Coates MD 420 [facility] 75 [place] [address] 06/01/2025 11:15 AM CDT Appointment [facility] Imaging [address] [place] [address] [place] [phone] Robin Zepeda MD [address] [place] [address] 505975 06/04/2025 11:00 AM CDT Office Visit [facility] [place] [address] [place] [address] 3rd [place] [phone] Robin Zepeda MD [address] [place] [address] Usha Simon APRN FAMILY SERVICES COORDINATOR [address] [place] [address] [phone] documented as of this encounter Visit Diagnoses Not on filedocumented in this encounter Additional Health Concerns Assessment Noted Time PHQ-9 Depression Total Score: 0 02/09/20 17 7:29 AM CDT documented as of this encounter Care Teams [employer] Installer Relationship Specialty Start Date End Date Yung Madrigal MD RETIRED PCP - Orthopaedics Orthopedics 08/26/12 01/20/24 Winston Villatoro OD [address] [place] [address] PCP - Ophthalmology Ophthalmology 02/11/13 Clara Cornell MD [address] [place] [address] PCP - General Internal Medicine 02/07/17 09/20/20 Denise Woodson Ra, APRN FAMILY SERVICES COORDINATOR [address] [place] [address] PCP - General Family Practice 09/21/20 lCara Cornell MD 8675 [place] [address] Assigned PCP 01/17/17 07/16/20 Denise Woodson Ra, APRN FAMILY SERVICES COORDINATOR [address] [place] [address] Assigned PCP 07/17/20 Usha Simon APRN FAMILY SERVICES COORDINATOR [address] [place] [address] Nurse Practitioner Neurological Surgery 01/24/24 Dangelo Salinas MD 1650 [facility] [address] [address] Neurology 01/27/24 Usha Simon APRN FAMILY SERVICES COORDINATOR [address] [place] [address] Assigned Neuroscience Provider 02/06/24 03/07/24 Anastasia Stearns, RN Lead Ground Control Approach Technician 02/06/24 Germaine Lopez, W Community Health Worker Primary Care - CC 02/18/24 Robin Zepeda MD [address] [place] [id number] [place] [address] Assigned Neuroscience Provider 03/08/24 05/07/24 Lisa Zambrano MD 6405 [facility] [address] [place] [address] Assigned Heart and Vascular Provider 05/08/24 07/07/24 Raul Hoyos MD [address] [address] Assigned Neuroscience Provider 05/08/24 07/07/24 [facility] [address] [place] [address] Pharmacist Pharmacist 05/25/24 [facility] [address] [place] [address] Assigned MTM Pharmacist 06/08/24 Fabi Coates MD [address] [place] [address] 75 [place] [address] Genetics, Clinical 06/18/24 Robin Zepeda MD [address] [address] Assigned Neuroscience Provider 07/08/24 Danna Cardenas PA-C [address] [place] [address] Assigned Heart and Vascular Provider 07/08/24 Lloyd, Felicita M, RN Lead Ground Control Approach Technician 07/14/24 documented as of this encounter
--- OUTSIDE RECORDS SUMMARY | 2024-07-16 13:58 | XMS_ITS | Encounter Summary ---
Author Organization [facility] Address [address] [place] [address] Care Team Providers Care Paper And Pulp Mill Worker Name Role Phone Yung Madrigal MD Unavailable Unavailable Winston Villatoro OD Unavailable [phone] Serum, Clara Garland MD Primary Care Provider Serum, Clara Garland MD Unavailable [phone] Denise Woodson Ra TIE SAWYER AWAKE OVERNIGHT COUNSELOR Unavailable + [phone] Denise Woodson Ra TIE SAWYER AWAKE OVERNIGHT COUNSELOR Primary Care Provid er Usha Simon TIE SAWYER AWAKE OVERNIGHT COUNSELOR Unavailable + [phone] Dangelo Salinas MD Unavailable Usha Simon TIE SAWYER AWAKE OVERNIGHT COUNSELOR Unavailable + [phone] Anastasia Stearns RN Unavailable +[phone] Germaine Lopez CHW Unavailable [phone] Robin Zepeda MD Unavailable [phone] Lisa Zambrano MD Unavailable Raul Hoyos MD Unavailable Joya Lira [facility] Unavailable [phone] Joya Lira [facility] Unavailable +[phone] Fabi Coates MD Unavailable [phone] Robin Zepeda MD Unavailable [phone] Danna Cardenas PA-C Unavailable Felicita Desia RN Unavailable Unavailab le Reason for Visit * Reason Onset Date Comments LAB REQUEST 06/16/2019 Encounter Details Date Type Department Care Team (Late st Contact Info) Description 06/16/2019 MyC Medical Advice [facility] [address] [facility] [address] [place] [address] Serum, Clara Garland MD [address] [place] [address] LAB REQUEST Social History Tobacco [...] on file Legal Sex 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 CONCRETE BLOCK PLANT SUPERVISOR Gender Identity Not on file Sexual Orientation Not on file 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 Patient requesting to check TSH and antibodies for pt reported possible yonas's. Pended TSH for provider review. documented in this encounter Plan of Treatment Upcoming Encounters Date Type Department Care Team (Late Contact Info) Description 07/20/2024 12:00 PM CONCRETE BLOCK PLANT SUPERVISOR Virtual Visit [facility] [address] [place] [address] Denise Woodson Ra, TIE SAWYER AWAKE OVERNIGHT COUNSELOR [address] [place] [address] 07/30/2024 8:30 AM CONCRETE BLOCK PLANT SUPERVISOR Virtual Visit [facility] [place] [address] [place] [address] [address] [place] [phone] Randy Maradiaga DO 909 [place] [address] 08/04/2024 12:00 PM CONCRETE BLOCK PLANT SUPERVISOR Virtual Visit [facility] [address] [place] [address] Arthur Salas, [facility] [address] [place] [address] 08/04/2024 3:30 PM CONCRETE BLOCK PLANT SUPERVISOR Virtual Visit [facility] [address] [place] [phone] Denise Woodson Ra, TIE SAWYER AWAKE OVERNIGHT COUNSELOR [address] [place] [address] 08/07/2024 1:00 PM CONCRETE BLOCK PLANT SUPERVISOR Appointment [facility] Heart Care [address] [facility] [address] [place] [phone] Danna Cardenas, PA-C 6405 [place], [place] 1368[address] 08/10/2024 12:30 PM CONCRETE BLOCK PLANT SUPERVISOR Virtual Visit [facility] [place] [address] [place] [address] [address] [place] [phone] Robin Zepeda MD [address] [place] [address] [id number] [place] [address] 08/17/2024 12:30 PM CONCRETE BLOCK PLANT SUPERVISOR Office Visit [facility] Neuropsychology [address] [place] [phone] Robin Zepeda MD 909 [facility] [id number] [place] [address] Tulio Ogden, PhD [address] [address] 09/04/2024 11:00 AM CONCRETE BLOCK PLANT SUPERVISOR Office Visit [facility] [address] [place] [phone] Denise Woodson Ra, TIE SAWYER AWAKE OVERNIGHT COUNSELOR [address] [place], [place] [phone] 09/18/2024 1:00 PM CONCRETE BLOCK PLANT SUPERVISOR Office Visit [facility] [address] [place] [address] Denise Woodson Ra, TIE SAWYER AWAKE OVERNIGHT COUNSELOR [address] [place], [place] [phone] 09/29/2024 9:00 AM CONCRETE BLOCK PLANT SUPERVISOR Virtual Visit [facility] [address] 3rd [place] [phone] Randy Maradiaga DO [address] [place] [address] 10/09/2024 1:20 PM CONCRETE BLOCK PLANT SUPERVISOR Office Visit [facility] [address] [facility] [address] [place] [phone] Danna Cardenas PA-C [address] [place] [address] 646245 10/30/2024 4:00 PM CONCRETE BLOCK PLANT SUPERVISOR Virtual Visit [facility] [place] [address] [facility] [place] [place] [facility] [place] [phone] Lisa Zambrano MD [address] [place], [place] [address] 12/29/2024 12:45 PM CDT Office Visit [facility] [address] [place] [address] [address] [phone] Fabi Coates MD [address] 739[address] 12/29/2024 1:45 PM CDT Office Visit [facility] [address] [place] [address] [phone] Fabi Coates MD [address] [place] [address] 807205 06/01/2025 11:15 AM CDT Appointment [facility] Imaging [address] [facility] [address] [place] [phone] Robin Zepeda MD [address] [place] [address] 06/04/2025 11:00 AM CDT Office Visit [facility] [address] 3rd [place] [phone] Robin Zepeda MD [address] [place] [address]205 Usha Simon APRN [address] [address] documented as of this encounter Results * Follicle stimulating hormone (06/22/2019 3:36 PM CDT) FSH 9.5 IU/L 06/23/2019 2:32 PM CDT [facility] Comment: FSH Reference Range Female: Follicular ?2.5-10.2 ?Mid-cycle ? 3.4-33.4 ?Luteal ?1.5-9.1 ?Postmenopausal ??23.0-116.3 Blood specimen (specimen) 06/22/2019 3:36 PM CDT 06/22/2019 3:37 PM CDT Clara Cornell MD LAB - BLOOD ORDERABLES Final Result Performing Organization Address [facility] Co de Phone Number [facility] [address] [place] [address] * TSH with free T4 reflex FUTURE anytime (06/22/2019 3:36 PM CDT) TSH 3.30 0.40 - 4.00 mU/L 06/23/2019 3:12 PM CDT [facility] Blood specimen (specimen) 06/22/2019 3:36 PM CDT 06/22/2019 3:37 PM CDT Clara Cornell MD LAB - BLOOD ORDERABLES Final Result Performing Organization Address [facility] Co de Phone Number [facility] [address] [place] [address] documented in this encounter Visit Diagnoses Diagnosis Anti-TPO antibodies present- Primary Other and unspecified nonspecific immunological findings Excessive sweating Generalized hyperhidrosis documented in this encounter Additional Health Concerns Assessment Noted Time PHQ-9 Depression Total Score: 0 06/15/20 19 7:09 PM CDT documented as of this encounter Care Teams Paper And Pulp Mill Worker Relationship Specialty Start Date End Date Yung Madrigal MD RETIRED PCP - Orthopaedics Orthopedics 08/26/12 01/20/24 Winston Villatoro OD [facility] [place] [address] [place] [address] PCP - Ophthalmology Ophthalmology 02/11/13 Clara Cornell MD [facility] [place] [address] [place] [address] PCP - General Internal Medicine 02/07/17 09/20/20 Denise Woodson Ra TIE SAWYER AWAKE OVERNIGHT COUNSELOR [address] [place] [address] PCP - General Family Practice 09/21/20 Clara Cornell MD [address]75 [place] [address] Assigned PCP 01/17/17 07/16/20 Denise Woodson Ra TIE SAWYER AWAKE OVERNIGHT COUNSELOR [address] [place] [address] Assigned PCP 07/17/20 Usha Simon APRN AWAKE OVERNIGHT COUNSELOR [address] 345745 Nurse Practitioner Neurological Surgery 01/24/24 Dangelo Salinas MD [address] [address] [address] Neurology 01/27/24 Usha Simon APRN AWAKE OVERNIGHT COUNSELOR [address] 837965 Assigned Neuroscience Provider 02/06/24 03/07/24 Anastasia Stearns, RN Lead Launch Manager 02/06/24 Germaine Lopez, W Community Health Worker Primary Care - CC 02/18/24 Robin Zepeda MD [address] [place] [address] Assigned Neuroscience Provider 03/08/24 05/07/24 Lisa Zambrano MD [address] [facility] [address] [place] [address] Assigned Heart and Vascular Provider 05/08/24 07/07/24 Raul Hoyos MD [address] [place] [address] Assigned Neuroscience Provider 05/08/24 07/07/24 Joya Lira RPH [address] [place] [address] Pharmacist Pharmacist 05/25/24 Joya Lira RPH [address] [place] [address] Assigned MTM Pharmacist 06/08/24 Fabi Coates MD [address] [place] [address] 75 [place] [address] Genetics, Clinical 06/18/24 Robin Zepeda MD [address] [place] [address] Assigned Neuroscience Provider 07/08/24 Danna Cardenas PA-C [address] [place] [address] Assigned Heart and Vascular Provider 07/08/24 Felicita Desai, RN Lead Launch Manager 07/14/24 documented as of this encounter
--- OUTSIDE RECORDS SUMMARY | 2024-07-16 13:58 | XMS_ITS | Encounter Summary ---
Author Organization [facility] Address [address] [place] [address] Care Team Providers Care Airline Operations Agent Name Role Phone Yung Madrigal MD Unavailable Unavailable Winston Villatoro OD Unavailable [phone] Denise Woodson Ra, APRN TECHNICAL PUBLICATIONS WRITER Unavailable + [phone] Denise Woodson Ra, APRN TECHNICAL PUBLICATIONS WRITER Primary Care Provid er Usha Simon APRN TECHNICAL PUBLICATIONS WRITER Unavailable Dangelo Salinas MD Unavailable Usha Simon APRN TECHNICAL PUBLICATIONS WRITER Unavailable [phone] Anastasia Stearns RN Unavailable [phone] Germaine Lopez CHW Unavailable [phone] Robin Zepeda MD Unavailable [phone] Lisa Zambrano MD Unavailable Raul Hoyos MD Unavailable Joya Lira [facility] Unavailable [phone] Joya Lira [facility] Unavailable [phone] Fabi Coates MD Unavailable [phone] Robin Zepeda MD Unavailable [phone] Danna CardenasC Unavailable [phone] Felicita Desai RN Unavailable Unavailab le Reason for Visit * Reason Onset Date Comments Medication Request 04/20/2021 escitalopram (LEXAPRO) 10 MG tablet Encounter Details Date Type Department Care Team (Late st Contact Info) Description 04/20/2021 Ajay Medical Advice [facility] [address] [place] [phone] Denise Woodson , MANAGER [employer] [facility] [address] [place] [address] Medication Request (escitalopram (LEXAPRO)... 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 Not on [...] st Contact Info) Description 07/20/2024 12:00 PM SMOKE CONTROL SUPERVISOR Virtual Visit [facility] [address] [place] [phone] Denise Woodson Ra, MANAGER [facility] [address] [place] [address] 07/30/2024 8:30 AM SMOKE CONTROL SUPERVISOR Virtual Visit [facility] Neurology Clinic [address] [address] Randy Maradiaga, [address] [place] [address] 08/04/2024 12:00 PM SMOKE CONTROL SUPERVISOR Virtual Visit [facility] [place] [address] [place] [address] [address]adi, [facility] [address] [place] [address] 08/04/2024 3:30 PM SMOKE CONTROL SUPERVISOR [facility] [address] [place] [phone] Denise Woodson Ra, MANAGER [employer] TECHNICAL PUBLICATIONS WRITER [address] [place], [place] [phone] 08/07/2024 1:00 PM SMOKE CONTROL SUPERVISOR Appointment [facility] Heart Care [address] [facility] [address] [place] [phone] Danna Cardenas PA-C 6405 [place], [place] 862425 08/10/2024 12:30 PM SMOKE CONTROL SUPERVISOR Virtual Visit [facility] Neuropsychology [address] [phone] Robin Zepeda MD [address] [place] [address] 08/17/2024 12:30 PM SMOKE CONTROL SUPERVISOR Office Visit [facility] Neuropsychology [address] [phone] Robin Zepeda MD [address] [place] [address] Tulio Ogden, PhD [address] [address] 09/04/2024 11:00 AM SMOKE CONTROL SUPERVISOR Office Visit [facility] [address] [place] [phone] Denise Woodson Ra, MANAGER [employer] TECHNICAL PUBLICATIONS WRITER [address] [facility] [place], [place] [phone] 09/18/2024 1:00 PM SMOKE CONTROL SUPERVISOR Office Visit [facility] [address] [place] [phone] Denise Woodson Ra, MANAGER [employer] TECHNICAL PUBLICATIONS WRITER [address] [place], [place] 8723[address] 09/29/2024 9:00 AM SMOKE CONTROL SUPERVISOR Virtual Visit [facility] Neurology [address] [phone] Randy Maradiaga, [address] [address] 10/09/2024 1:20 PM SMOKE CONTROL SUPERVISOR Office Visit [facility] Heart [facility] [address] [phone] [place] [phone] Danna Cardenas PA-C [address] [place] [address] 10/30/2024 4:00 PM SMOKE CONTROL SUPERVISOR Virtual Visit [facility] Vascular Clinic [place] [address] [place] [phone] Lisa Zambrano MD [address] [place] [id number] 12/29/2024 12:45 PM CDT Office Visit [facility]0 [facility] [address],[place] [phone] Fabi Coates MD [address] [address] 12/29/2024 1:45 PM CDT Office Visit [facility] Pediatric Specialty Clinic 2450 [facility] Explorer [facility] [address],[place] [phone] Fabi Coates MD [address] [address] 06/01/2025 11:15 AM CDT Appointment [facility] Care [facility] [address] [place] [address] [place] [address] Robin Zepeda MD [address] [place] [address] 06/04/2025 11:00 AM CDT Office Visit [facility] Neurosurgery Clinic [address] 3rd [place] [phone] Robin Zepeda MD [address] [place] [address] Usha Simon APRN TECHNICAL PUBLICATIONS WRITER [address] [place] [address] documented as of this encounter Visit Diagnoses Diagnosis Generalized anxiety disorder Mild recurrent major depression (H) Major depressive disorder, recurrent episode, mild documented in this encounter Additional Health Concerns Assessment Noted Time PHQ-9 Depression Total Score: 0 01/05/20 21 9:31 AM CDT documented as of this encounter Care Teams Airline Operations Agent Relationship Specialty Start Date End Date Yung Madrigal MD RETIRED PCP - Orthopaedics Orthopedics 08/26/12 01/20/24 Winston Villatoro OD [facility] [place] [address] [place] [address] PCP - Ophthalmology Ophthalmology 02/11/13 Denise Woodson Ra, MANAGER [employer] TECHNICAL PUBLICATIONS WRITER [address] [place] [id number] PCP - General Family Practice 09/21/20 Denise Woodson Ra, MANAGER [employer] TECHNICAL PUBLICATIONS WRITER [address] [place], [place] [id number] Assigned PCP 07/17/20 Usha Simon APRN TECHNICAL PUBLICATIONS WRITER [address] [place] [address] 529515 Nurse Practitioner Neurological Surgery 01/24/24 Dangelo Salinas MD [address] [place], [place] [phone] Neurology 01/27/24 Usha Simon APRN TECHNICAL PUBLICATIONS WRITER [address] [place] [address] 020935 Assigned Neuroscience Provider 02/06/24 03/07/24 Anastasia Stearns, RN Lead Electrode Turner And Finisher 02/06/24 Germaine Lopez, W Community Health Worker Primary Care - CC 02/18/24 Robin Zepeda MD [address] [phone] Assigned Neuroscience Provider 03/08/24 05/07/24 Lisa Zambrano MD 6[address] [facility] [address] [place] [address] Assigned Heart and Vascular Provider 05/08/24 07/07/24 Raul Hoyos MD 909 [facility] [address] Assigned Neuroscience Provider 05/08/24 07/07/24 Joya Lira [facility] [address] [place] [address] Pharmacist Pharmacist 05/25/24 Joya Lira [facility] [address] [place] [address] Assigned MTM Pharmacist 06/08/24 Fabi Coates MD 420 [facility] 75 [place], [place] [address] Genetics, Clinical 06/18/24 Robin Zepeda MD 909 [facility]2121[place], [place] [address] Assigned Neuroscience Provider 07/08/24 Danna Cardenas PA-C 6405 [place] [address] Assigned Heart and Vascular Provider 07/08/24 Felicita Desai, RN Lead Electrode Turner And Finisher 07/14/24 documented as of this encounter
--- OUTSIDE RECORDS SUMMARY | 2024-07-16 13:58 | XMS_ITS | Encounter Summary ---
Author Organization [facility] Address [address] [place] [address] Care Team Providers Care Telehealth Director Name Role Phone Yung Madrigal MD Unavailable Unavailable Winston Villatoro OD Unavailable +[phone] Serum, Clara Garland MD Primary Care Provider Serum, Clara Garland MD Unavailable +[phone] Denise Woodson Ra CARD HANGER PRE WAVE ASSEMBLER Unavailable + [phone] Denise Woodson Ra CARD HANGER PRE WAVE ASSEMBLER Primary Care Provid er Usha Simon CARD HANGER PRE WAVE ASSEMBLER Unavailable + [phone] Dangelo Salinas MD Unavailable Usha Simon CARD HANGER PRE WAVE ASSEMBLER Unavailable + [phone] Anastasia Stearns RN Unavailable +[phone] Germaine Lopez CHW Unavailable +[phone] Robin Zepeda MD Unavailable Lisa Zambrano MD Unavailable Raul Hoyos MD Unavailable Joya Lira [facility] Unavailable [phone] Joya Lira [facility] Unavailable +[phone] Fabi Coates MD Unavailable [phone] Robin Zepeda MD Unavailable [phone] Danna Cardenas PA-C Unavailable [phone] Felicita Desai RN Unavailable Unavailab le Encounter Details Date Type Department Care Team (Late st Contact Info) Description 06/16/[address] [facility] [address] [facility] [address] [place] [address] Aneta, Clara Garland MD [address] [place] [address] Social History Tobacco Use Types Packs/Day Years Used Date Smoking Tobacco: Never Smokeless Tobacco: Never Alcohol Use Standard Drinks/Week Comments Yes 0 (1 standard drink = 0.6 oz pur e alcohol) minimal PHQ-2 Answer Date Recorded PHQ-2 Score 0 09/23/2018 Comments No Sex and Gender Information Value Date Recorded Sex Assigned at Not on file Legal Sex 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 HEAD PAPER TESTER Gender Identity Not on file Sexual [...] st Contact Info) Description 07/20/2024 12:00 PM HEAD PAPER TESTER Virtual Visit [facility] [address] [place] [address] Denise Woodson Ra, CARD HANGER [facility] [address] [place] [address] 07/30/2024 8:30 AM HEAD PAPER TESTER Virtual Visit [facility] Neurology [facility] [address] [facility] 3rd [place] [address] Randy Maradiaga, [address] [place] [address] 08/04/2024 12:00 PM HEAD PAPER TESTER Virtual Visit [facility] [place] [address] [place] [address] Arthur Salas, RAFTER CUTTING MACHINE OPERATOR [address] [place] [address] 08/04/2024 3:30 PM HEAD PAPER TESTER [facility] [address] [place] [address] Denise Woodson Ra, CARD HANGER [facility] [address] [place], [place] [address] 08/07/2024 1:00 PM HEAD PAPER TESTER Appointment M [facility] Heart Care [address] [facility] [address] [place] [address] Danna Cardenas PANilesC 6405 [place] [address] 08/10/2024 12:30 PM HEAD PAPER TESTER Virtual Visit [facility] Neuropsychology [address] [phone] Robin Zepeda MD [address] [place] [address] 08/17/2024 12:30 PM HEAD PAPER TESTER Office Visit [facility] Neuropsychology [address] [phone] Robin Zepeda MD [address] [place] [address] Tulio Ogden, PhD [address] [address] 09/04/2024 11:00 AM HEAD PAPER TESTER Office Visit [facility] [address] [place] [address] Denise Woodson Ra, CARD HANGER PRE WAVE ASSEMBLER [address] [facility] [place] [address] 09/18/2024 1:00 PM HEAD PAPER TESTER [facility] [address] [place] [address] Denise Woodson Ra, CARD HANGER PRE WAVE ASSEMBLER [address] [place] [address] 09/29/2024 9:00 AM HEAD PAPER TESTER Virtual Visit [facility] Neurology [address] [phone] Randy Maradiaga, [address] [address] 10/09/2024 1:20 PM HEAD PAPER TESTER Office Visit [facility] Heart [facility] [address] [facility] [address] [place] [phone] Danna Cardenas PA-C 6405 [place] [address] 10/30/2024 4:00 PM HEAD PAPER TESTER Virtual Visit [facility] Vascular [facility] [address] [place] [phone] Lisa Zambrano MD [address] [place] [address] 12/29/2024 12:45 PM CDT Office Visit [facility] [address] [facility] [address],[place] [phone] Fabi Coates MD [address] [facility] 75 [place], [place] [address] 12/29/2024 1:45 PM CDT Office Visit [facility]ty Clinic [address] [facility] 12th [address],[place] [address] Fabi Coates MD [address] [facility] 75 [place] [address] 06/01/2025 11:15 AM CDT Appointment M [facility] Imaging [address] [place] [phone] Robin Zepeda MD [address] [place] [address] 06/04/2025 11:00 AM CDT Office Visit [facility] Neurosurgery [facility] [address] [facility] 3rd [place] [phone] Robin Zepeda MD [address] [place] [address] [phone] Usha Simon APRN [facility] [address] documented as of this encounter Visit Diagnoses Not on filedocumented in this encounter Additional Health Concerns Assessment Noted Time PHQ-9 Depression Total Score: 0 06/15/20 19 7:09 PM CDT documented as of this encounter Care Teams Telehealth Director Relationship Specialty Start Date End Date Yung Madrigal MD RETIRED PCP - Orthopaedics Orthopedics 08/26/12 01/20/24 Winston Villatoro OD [facility] [place] [address] [facility] [address] [place] [address] PCP - Ophthalmology Ophthalmology 02/11/13 Clara Cornell MD [facility] [place] [address] [facility] [address] [place] [address] PCP - General Internal Medicine 02/07/17 09/20/20 Denise Woodson Ra, APRN PRE WAVE ASSEMBLER [address] [place] [address] PCP - General Family Practice 09/21/20 Clara Cornell MD [address] [place] [address] Assigned PCP 01/17/17 07/16/20 Denise Woodson Ra CARD HANGER PRE WAVE ASSEMBLER [address] [place] [address] Assigned PCP 07/17/20 Usha Simon APRN PRE WAVE ASSEMBLER [address] 650235 Nurse Practitioner Neurological Surgery 01/24/24 Dangelo Salinas MD [address] [place] [address] [address] Neurology 01/27/24 Usha Simon APRN PRE WAVE ASSEMBLER [address] [id number] Assigned Neuroscience Provider 02/06/24 03/07/24 Anastasia Stearns, RN Lead Administration Clerk 02/06/24 Germaine Lopez, W Community Health Worker Primary Care - CC 02/18/24 Robin Zepeda MD [address] [place] [address] Assigned Neuroscience Provider 03/08/24 05/07/24 Lisa Zambrano MD [address] [facility] [place] [address] Assigned Heart and Vascular Provider 05/08/24 07/07/24 Raul Hoyos MD [address] [place] [address] Assigned Neuroscience Provider 05/08/24 07/07/24 Joya Lira [facility] [address] [place] [address] Pharmacist Pharmacist 05/25/24 Joya Lira [facility] [address] [place] [address] Assigned MTM Pharmacist 06/08/24 Fabi Coates MD [address] [place] [address] 75 [place] [address] Genetics, Clinical 06/18/24 Robin Zepeda MD [address] [place] [address] Assigned Neuroscience Provider 07/08/24 Danna Cardenas PA-C [address] [place] [address] Assigned Heart and Vascular Provider 07/08/24 Felicita Desai, RN Lead Administration Clerk 07/14/24 documented as of this encounter
--- OUTSIDE RECORDS SUMMARY | 2024-07-16 13:58 | XMS_ITS | Encounter Summary ---
Author Organization [facility] Address [address] [place] [address] Care Team Providers Care [employer] Information [employer] Officer Name Role Phone Yung Madrigal MD Unavailable Unavailable Winston Villatoro OD Unavailable [phone] Denise Woodson Ra, APRN OSTEOPATHY DOCTOR Unavailable + [phone] Denise Woodson Ra, APRN OSTEOPATHY DOCTOR Primary Care Provid er Usha Simon APRN OSTEOPATHY DOCTOR Unavailable Dangelo Salinas MD Unavailable Usha Simon APRN OSTEOPATHY DOCTOR Unavailable [phone] Anastasia Stearns RN Unavailable +[phone] Germaine Lopez CHW Unavailable [phone] Robin Zepeda MD Unavailable Lisa Zambrano MD Unavailable Raul Hoyos MD Unavailable Joya Lira [facility] Unavailable [phone] Joya Lira [facility] Unavailable [phone] Fabi Coates MD Unavailable [phone] Robin Zepeda MD Unavailable [phone] Danna CardenasC Unavailable +[phone] Lloyd, Felicita M RN Unavailable Unavailab le Encounter Details Date Type Department Care Team (Late st Contact Info) Description 01/22/2022 MyC Medical Advice [facility] [address] [place] [phone] Angelo Escobar Social History Tobacco Use Types Packs/Day Years Used Date Smoking Tobacco: Never Smokeless Tobacco: Never Alcohol Use Standard Drinks/Week Comments Not Currently 0 (1 standard drink = 0.6 oz pur e alcohol) minimal PHQ-2 Answer Date Recorded PHQ-2 Score 0 07/27/2021 Comments No Sex and Gender Information Value Date Recorded Sex Assigned at Not on file Legal Sex 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 LIQUID LOADER Gender Identity Not on file Sexual Orientation Not on file 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 Not on file Not on file Not on file Not on file Not on file Not on file documented as of this encounter Miscellaneous Notes * Telephone Encounter - Tran Castro RN - 01/22/2022 5:19 PM CDT documented in this encounter Plan of Treatment Upcoming Encounters Date Type Department Care Team (Late Contact Info) Description 07/20/2024 12:00 PM LIQUID LOADER Virtual Visit [facility] [address] [place] [phone] Denise Woodson Ra, PATIENT REGISTRATION CLERK [facility] [address] [place], [place] [phone] 07/30/2024 8:30 AM LIQUID LOADER Virtual Visit [facility] Neurology Clinic [address] 3rd [place] [address] Randy Maradiaga, [address] [place] [address] 08/04/2024 12:00 PM LIQUID LOADER Virtual Visit [facility] Addiction [facility] [address] [place] [address] Arthur Salas, [facility] [address] [place] [address] 08/04/2024 3:30 PM LIQUID LOADER [facility] [address] [place] [phone] Denise Woodson Ra, PATIENT REGISTRATION CLERK OSTEOPATHY DOCTOR [address] [place], [place] [address] 08/07/2024 1:00 PM LIQUID LOADER Appointment M [facility] Heart Care [address] [facility] [address] [place] [phone] Danna Cardenas PA-C 6405 [place] [address] 08/10/2024 12:30 PM LIQUID LOADER Virtual Visit [facility] Neuropsychology [address] [phone] Robin Zepeda MD [address] [place] [address] 08/17/2024 12:30 PM LIQUID LOADER Office Visit [facility] Neuropsychology [address] [phone] Robin Zepeda MD [address] [place] [address] Tulio Ogden, PhD [address] [address] 09/04/2024 11:00 AM LIQUID LOADER Office Visit [facility] [address] [place] [address] Denise Woodson Ra, PATIENT REGISTRATION CLERK OSTEOPATHY DOCTOR [address] [place], [place] 600[address] 09/18/2024 1:00 PM LIQUID LOADER Office Visit [facility] [address] [place] [address] Denise Woodson Ra, PATIENT REGISTRATION CLERK OSTEOPATHY DOCTOR [address] [place], [place] [address] 09/29/2024 9:00 AM LIQUID LOADER Virtual Visit [facility] Neurology [address] [phone] Randy Maradiaga, [address] [address] 10/09/2024 1:20 PM LIQUID LOADER Office Visit [facility] Heart [place] [address] [facility] [address] [place] [phone] Danna Cardenas PA-C 6405 [place] [address] 10/30/2024 4:00 PM LIQUID LOADER Virtual Visit [facility] Vascular Clinic [place] [address] [place] [phone] Lisa Zambrano MD [address] [place] [address] 12/29/2024 12:45 PM CDT Office Visit [facility] [address] [facility] [address] [facility] [address],[place] [phone] Fabi Coates MD [address] [facility] 75 [place] [address] 12/29/2024 1:45 PM CDT Office Visit [facility] [address] [facility] [address] [facility] [address],[place] [address] Fabi Coates MD [address] [facility] 75 [place] [address] 06/01/2025 11:15 AM CDT Appointment M [facility] Care Center Imaging [address] [place] [phone] Robin Zepeda MD [address] [place] [address] 06/04/2025 11:00 AM CDT Office Visit [facility] Neurosurgery Clinic [address] 3rd [place] [address] Robin Zepeda MD [address] [place] [address]99[address] Usha Simon APRN OSTEOPATHY DOCTOR [address] [place] [address] documented as of this encounter Visit Diagnoses Not on filedocumented in this encounter Additional Health Concerns Assessment Noted Time PHQ-9 Depression Total Score: 0 06/23/20 21 4:11 PM CDT documented as of this encounter Care Teams Combat Information Center Officer Relationship Specialty Start Date End Date Yung Madrigal MD RETIRED PCP - Orthopaedics Orthopedics 08/26/12 01/20/24 Winston Villatoro OD [facility] [place] [address] [place] [address] [address] [place] [address] PCP - Ophthalmology Ophthalmology 02/11/13 Denise Woodson Ra, APRN OSTEOPATHY DOCTOR [address] [place] [address] PCP - General Family Practice 09/21/20 Denise Woodson Ra, APRN OSTEOPATHY DOCTOR [address] [place] [address] Assigned PCP 07/17/20 Usha Simon APRN OSTEOPATHY DOCTOR [address] [place] [address] 825745 Nurse Practitioner Neurological Surgery 01/24/24 Dangelo Salinas MD [address] [address] [place], [place] [phone] Neurology 01/27/24 Usha Simon APRN OSTEOPATHY DOCTOR [address] [address] Assigned Neuroscience Provider 02/06/24 03/07/24 Anastasia Stearns, RN Lead Video Producer 02/06/24 Germaine Lopez, W Community Health Worker Primary Care - CC 02/18/24 Robin Zepeda MD [address] [phone] Assigned Neuroscience Provider 03/08/24 05/07/24 Lisa Zambrano MD [address] [place] [address] Assigned Heart and Vascular Provider 05/08/24 07/07/24 Raul Hoyos MD 909 [facility] [place] [address] Assigned Neuroscience Provider 05/08/24 07/07/24 Joya Lira [facility] [address] [place], [place] [address] [place] [address] Pharmacist Pharmacist 05/25/24 Joya Lira [facility] [address] [place], [place] [address] [place] [address] Assigned MTM Pharmacist 06/08/24 Fabi Coates MD [address] [place] [address] 75 [place] [address] Genetics, Clinical 06/18/24 Robin Zepeda MD [address] [place] [address]97[address] [place] [address] Assigned Neuroscience Provider 07/08/24 Danna Cardenas PA-C [address] [place] [address] Assigned Heart and Vascular Provider 07/08/24 Fleicita Desai, RN Lead Video Producer 07/14/24 documented as of this encounter
--- OUTSIDE RECORDS SUMMARY | 2024-07-16 13:59 | XMS_ITS | Encounter Summary ---
Author Organization [facility] Address [address] [place] [address] Care Team Providers Care Violin Tutor Name Role Phone Timmy Perez MD Unavailable Unavailable Yung Madrigal MD Unavailable Unavailable Frw, None Primary Care Provider Unavailabl e Winston Villatoro OD Unavailable [phone] Apple Sykes MD Primary Care Provider Unavailab Westley Vera MD Unavailable [phone] Alessandra Cabrales APRN LEAD HANDLER Primary Car e Provider Serum, Clara Garland MD Primary Care Provider Serum, Clara Garland MD Unavailable Serum, Clara Garland MD Unavailable +[phone] Denise Woodson Ra, APRN LEAD HANDLER Unavailable + [phone] Denise Woodson Ra, APRN LEAD HANDLER Primary Care Provid er Usha Simon APRN LEAD HANDLER Unavailable + [phone] Dangelo Salinas MD Unavailable Usha Simon APRN LEAD HANDLER Unavailable + [phone] Anastasia Stearns RN Unavailable [phone] Germaine Lopez CHW Unavailable +[phone] Robin Zepeda MD Unavailable +[phone] Lisa Zambrano MD Unavailable + [phone] Raul Hoyos MD Unavailable [phone] SorayaJoya [facility] Unavailable +[phone] Soraya Joya [facility] Unavailable [phone] Fabi Coates MD Unavailable [phone] DuaneRobin MD Unavailable +[phone] Danna Cardenas PA-C Unavailable +[phone] Felicita Desai RN Unavailable Unavailab le Encounter Details Date Type Department Care Team (Late st Contact Info) Description 01/31/2006 [facility] in [place] DIVER HELPER [address] [place] [address] Timmy Perez MD Social History Tobacco Use Types Packs/Day Years Used Date Smoking Tobacco: Never Passive Smoke Exposure: Never Smokeless Tobacco: Never Alcohol Use Standard Drinks/Week Comments Not Currently 0 (1 standard drink = 0.6 oz pur e alcohol) minimal Comments No Sex and Gender Information Value Date Recorded Sex Assigned at Not on file Legal Sex 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 MAIN GALLEY SCULLION Gender Identity Not on file Sexual Orientation Not on file 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 Not on file Not on file Not on file Not on file Not on file Not on file documented as of this encounter Plan of Treatment Upcoming Encounters Date Type Department Care Team (Late st Contact Info) Description 07/20/2024 12:00 PM MAIN GALLEY SCULLION Virtual Visit [facility] [address] [place] [address] Denise Woodson Ra, SENIOR DATA INTEGRATION DEVELOPER LEAD HANDLER [address] [place] [address] 07/30/2024 8:30 AM MAIN GALLEY SCULLION Virtual Visit [facility] Neurology Clinic [address] 3rd [place] [address] Randy Maradiaga, [address] [address] 08/04/2024 12:00 PM MAIN GALLEY SCULLION Virtual Visit [facility] Mental Health and Addiction Clinic [place] [address] [place] [address] Arthur Salas, [facility] [address] [place], [place] [phone] 08/04/2024 3:30 PM MAIN GALLEY SCULLION [facility] [address] [place] [phone] Denise Woodson Ra, SENIOR DATA INTEGRATION DEVELOPER LEAD HANDLER [address] [place], [place] [address] 08/07/2024 1:00 PM MAIN GALLEY SCULLION Appointment [facility] Heart Care [address] [facility] [address] [place] [phone] Danna Cardenas PA-C 6[address] [place], [place] 4207[address] 08/10/2024 12:30 PM MAIN GALLEY SCULLION Virtual Visit [facility] Neuropsychology [address] [phone] Robin Zepeda MD [address] [place] [address] 84[address]85 08/17/2024 12:30 PM MAIN GALLEY SCULLION Office Visit [facility] Neuropsychology [address] [address] Robin Zepeda MD [address] [place] [address] 266365 Tulio Ogden, PhD [address] [address] 09/04/2024 11:00 AM MAIN GALLEY SCULLION Office Visit [facility] [address] [place] [phone] Denise Woodson Ra, SENIOR DATA INTEGRATION DEVELOPER LEAD HANDLER [address] [place], [place] [address] 09/18/2024 1:00 PM MAIN GALLEY SCULLION Office Visit [facility] [address] [place] [phone] Denise Woodson Ra, SENIOR DATA INTEGRATION DEVELOPER LEAD HANDLER [address] [place], [place] 306[address] 09/29/2024 9:00 AM MAIN GALLEY SCULLION Virtual Visit [facility] Neurology [address] [phone] Randy Maradiaga, [address] [address] 10/09/2024 1:20 PM MAIN GALLEY SCULLION Office Visit [facility] Heart [place] [address] [place] [phone] [place] [phone] Danna Cardenas PA-C [address] [place] [address] 10/30/2024 4:00 PM MAIN GALLEY SCULLION Virtual Visit [facility] Vascular [place] [address] [address] [place] [phone] Lisa Zambrano MD [address] [place] [address] 12/29/2024 12:45 PM CDT Office Visit [facility] Pediatric Specialty Clinic [address] [phone] Fabi Coates MD [address] [address] 12/29/2024 1:45 PM CDT Office Visit [facility] Pediatric Specialty [facility] [address] [phone] Fabi Coates MD [address] [address] 06/01/2025 11:15 AM CDT Appointment [facility] Imaging [address] [facility] [address] [place] [address] Robin Zepeda MD [address] [place] [address] 06/04/2025 11:00 AM CDT Office Visit [facility] Neurosurgery [address] 3rd [place] [phone] Robin Zepeda MD [address] [place] [address] 279045 Usha Simon APRN LEAD HANDLER [address] [place] [address] documented as of this encounter Visit Diagnoses Not on filedocumented in this encounter Care Teams Violin Tutor Relationship Specialty Start Date End Date Timmy Perez MD PCP - Obstetrics/Gynecology 03/02/08 08/07/15 Yung Madrigal MD RETIRED PCP - Orthopaedics Orthopedics 08/26/12 01/20/24 Frw, None PCP - General Family Practice 08/26/12 05/03/13 Winston Villatoro OD [facility] [place] [address] [place] [address] PCP - Ophthalmology Ophthalmology 02/11/13 Apple Sykes MD [facility] [place] [address] [place] [address] PCP - General Family Practice 05/04/13 10/25/16 Westley Bates MD XXX RETIRED XXX [address] [place] [address] PCP - ENT Otolaryngology 05/14/13 07/28/18 GeorginaAlessandra Gómez APRN LEAD HANDLER [address] [facility] [place] [address] PCP - General Nurse Practitioner 10/26/16 02/06/17 Clara Cornell MD [address] [facility] [place] [address] PCP - General Internal Medicine 02/07/17 09/20/20 Clara Cornell MD [address] [place] [address] PCP - Assigned PCP 01/17/17 11/18/18 Denise Woodson Ra, APRN LEAD HANDLER [address] [place] [address] PCP - General Family Practice 09/21/20 Clara Cornell MD [address] [place] [address] Assigned PCP 01/17/17 07/16/20 Denise Woodson Ra, SENIOR DATA INTEGRATION DEVELOPER LEAD HANDLER [address] [place] [address] Assigned PCP 07/17/20 Usha Simon APRN LEAD HANDLER [address] 433[address] Nurse Practitioner Neurological Surgery 01/24/24 Dangelo Salinas MD [address] [place], [place] [phone] Neurology 01/27/24 Usha Simon APRN LEAD HANDLER [address] [place] [address] 469815 Assigned Neuroscience Provider 02/06/24 03/07/24 Anastasia Stearns, RN Lead Doughnut Dough Mixer 02/06/24 Germaine Lopez, W Community Health Worker Primary Care - CC 02/18/24 Robin Zepeda MD [address] 282785 Assigned Neuroscience Provider 03/08/24 05/07/24 Lisa Zambrano MD [address] [place] 820665 Assigned Heart and Vascular Provider 05/08/24 07/07/24 Raul Hoyos MD [address] [address] Assigned Neuroscience Provider 05/08/24 07/07/24 Joya Lira Joleen [address] [place] [address] Pharmacist Pharmacist 05/25/24 Joya Lira [facility] [address] [place] [address] Assigned MTM Pharmacist 06/08/24 Fabi Coates MD [address] [place] [address] 75 [place] [address] Genetics, Clinical 06/18/24 Robin Zepeda MD [address]09 [facility] [place] [address] Assigned Neuroscience Provider 07/08/24 Danna Cardenas PA-C [address] [place] [address] Assigned Heart and Vascular Provider 07/08/24 Felicita Desai RN Lead Doughnut Dough Mixer 07/14/24 documented as of this encounter
--- OUTSIDE RECORDS SUMMARY | 2024-07-16 13:59 | XMS_ITS ---
Author Organization [facility] Address [address] [place] [address] Care Team Providers Care Campground Cleaning Attendant Name Role Phone Winston Villatoro OD Unavailable [phone] Denise Woodson Ra, APRN WOOL SUPPLIER Unavailable [phone] Denise Woodson Ra, APRN WOOL SUPPLIER Primary Care Provid er Usha Simon APRN WOOL SUPPLIER Unavailable [phone] Dangelo Salinas MD Unavailable Anastasia Stearns RN Unavailable Germaine Lopez [facility] Unavailable Joya Lira [facility] Unavailable Joya Lira [facility] Unavailable Fabi Coates MD Unavailable [phone] Robin Zepeda MD Unavailable Danna Cardenas PA-C Unavailable [phone] Felicita Desai RN Unavailable Unavailab Transitional Care Management Status:Enrolled (Active) Start date:07/14/2024 Enrollment date:07/14/2024 Case Team Name Relationship Phone Felicita Desai RN Lead Pediatric Dental Assistant(Resp onsible Staff) Continued Care and Services Coordination
--- OUTSIDE RECORDS SUMMARY | 2024-07-16 13:59 | XMS_ITS | Encounter Summary ---
Author Organization [facility] Address [address] [place] [address] Care Team Providers Care Marine Plumber Name Role Phone Timmy Perez MD Unavailable Unavailable Yung Madrigal MD Unavailable Unavailable Frw, None Primary Care Provider Unavailabl e Winston Villatoro OD Unavailable [phone] Apple Sykes MD Primary Care Provider Unavailab Westley Vera MD Unavailable [phone] Alessandra Cabrales APRN MARBLE INSTALLATION HELPER Primary Car e Provider Serum, Clara Garland MD Primary Care Provider Serum, Clara Garlnad MD Unavailable Serum, Clara Garland MD Unavailable [phone] Denise Woodson Ra, APRN MARBLE INSTALLATION HELPER Unavailable + [phone] Denise Woodson Ra, APRN MARBLE INSTALLATION HELPER Primary Care Provid er Usha Simon APRN MARBLE INSTALLATION HELPER Unavailable + [phone] Dangelo Salinas MD Unavailable Usha Simon APRN MARBLE INSTALLATION HELPER Unavailable + [phone] Anastasia Stearns RN Unavailable [phone] Germaine Lopez CHW Unavailable [phone] Robin Zepeda MD Unavailable [phone] Lisa Zambrano MD Unavailable + [phone] Raul Hoyos MD Unavailable [phone] Joya Lira [facility] Unavailable [phone] SorayaJoya [facility] Unavailable [phone] Fabi Coates MD Unavailable [phone] DuaneRobin MD Unavailable [phone] Danna Cardenas PA-C Unavailable [phone] Felicita Desai RN Unavailable Unavailab Reason for Visit * Reason Onset Date Comments Medication Question 04/21/2013 Farhan Saez [facility] Encounter Details Date Type Department Care Team (Late st Contact Info) Description 04/21/2013 Telephone [facility] in [address] [address] Janna Rodriguez, director of surgery Question ([facility]) Social History Tobacco Use Types Packs/Day Years Used Date Smoking Tobacco: Never Smokeless Tobacco: Never Alcohol Use Standard Drinks/Week Comments Yes 0 (1 standard drink = 0.6 oz pur e alcohol) minimal Comments No Sex and Gender Information Value Date Recorded Sex Assigned at Not on file Legal Sex 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 ASSOCIATE JAVA DEVELOPER Gender Identity Not on file Sexual Orientation Not on file 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 Sykes, pt to take [...] st Contact Info) Description 07/20/2024 12:00 PM ASSOCIATE JAVA DEVELOPER Virtual Visit [facility] [address] [place] [phone] Denise Woodson Ra, [employer] MARBLE INSTALLATION HELPER [address] [place], [place] [phone] 07/30/2024 8:30 AM ASSOCIATE JAVA DEVELOPER Virtual Visit [facility] Neurology [address] 3rd [place] [phone] Randy Maradiaga, [address] [address] 08/04/2024 12:00 PM ASSOCIATE JAVA DEVELOPER Virtual Visit [facility] Mental Health and Addiction Clinic [address] [place] [address] Arthur Salas, [address] [address] 08/04/2024 3:30 PM ASSOCIATE JAVA DEVELOPER Virtual Visit [facility] [address] [place] [phone] Denise Woodson Ra, [employer] LIMOUSINE MARBLE INSTALLATION HELPER [address] [place], [place] 5628[address] 08/07/2024 1:00 PM ASSOCIATE JAVA DEVELOPER Appointment [facility] [address] [place] [address] [address] [place] [address] Danna Cardenas PA-C 6405 [place] [address] 08/10/2024 12:30 PM ASSOCIATE JAVA DEVELOPER Virtual Visit [facility] Neuropsychology [address] [phone] Robin Zepeda MD [address] [place] [address] 08/17/2024 12:30 PM ASSOCIATE JAVA DEVELOPER Office Visit [facility] Neuropsychology [address] [phone] Robin Zepeda MD [address] [place] [address] Tulio Ogden, PhD [address] [address] 09/04/2024 11:00 AM ASSOCIATE JAVA DEVELOPER Office Visit [facility] [address] [place] [phone] Denise Woodson Ra, [employer] LIM[employer]INE MARBLE INSTALLATION HELPER [address] [place] [address] 09/18/2024 1:00 PM ASSOCIATE JAVA DEVELOPER Office Visit [facility] [address] [place] [phone] Denise Woodson Ra, BARRERA MARBLE INSTALLATION HELPER [address] [place] [address] 09/29/2024 9:00 AM ASSOCIATE JAVA DEVELOPER Virtual Visit [facility] Neurology [address] [phone] Randy Maradiaga DO 909 [place], [place] [address] 10/09/2024 1:20 PM ASSOCIATE JAVA DEVELOPER Office Visit [facility] Heart [facility] [address] [facility] [address] [facility] [address] [place] [phone] Danna Cardenas PA-C [address] [facility] [place] [address] 10/30/2024 4:00 PM ASSOCIATE JAVA DEVELOPER Virtual Visit [facility] Vascular Clinic [place] [address] [place] [phone] Lisa Zambrano MD [address] [place] [address] 12/29/2024 12:45 PM CDT Office Visit [facility] [address] [place], [place] [address]e Explorer [address] [phone] Fabi Coates MD [address] [place] [address] 12/29/2024 1:45 PM CDT Office Visit [facility] [address] [place], [place] [address] Explorer [address] [phone] Fabi Coates MD [address] [place] [address] 581885 06/01/2025 11:15 AM CDT Appointment [facility] Imaging [address] [facility] [address] [place] [phone] Robin Zepeda MD [address]09 [facility] [place] [id number] [place] [address] 06/04/2025 11:00 AM CDT Office Visit [facility] Neurosurgery [address] 3rd [place] [phone] Robin Zepeda MD [address] [place] [address] Usha Simon APRN MARBLE INSTALLATION HELPER [address] [place] [address] documented as of this encounter Visit Diagnoses Not on filedocumented in this encounter Care Teams Marine Plumber Relationship Specialty Start Date End Date Timmy Perez MD PCP - Obstetrics/Gynecology 03/02/08 08/07/15 Yung Madrigal MD RETIRED PCP - Orthopaedics Orthopedics 08/26/12 01/20/24 Frw, None PCP - General Family Practice 08/26/12 05/03/13 Winston Villatoro OD [facility] [place] [address] [place] [address] PCP - Ophthalmology Ophthalmology 02/11/13 Apple Sykes MD [facility] [place] [address] [place] [address] PCP - General Family Practice 05/04/13 10/25/16 Westley Bates MD XXX RETIRED XXX [address] [place], [place] [phone] PCP - ENT Otolaryngology 05/14/13 07/28/18 Georgina-Alessandra Gómez APRN MARBLE INSTALLATION HELPER [address] [place] [address] [place] [address] PCP - General Nurse Practitioner 10/26/16 02/06/17 Clara Cornell MD [address] [facility] [place] [address] PCP - General Internal Medicine 02/07/17 09/20/20 Clara Cornell MD 8675 [place] [address] PCP - Assigned PCP 01/17/17 11/18/18 Denise Woodson Ra, APRN MARBLE INSTALLATION HELPER [address] [place] [address] PCP - General Family Practice 09/21/20 Clara Cornell MD 8675 [place] [address] Assigned PCP 01/17/17 07/16/20 Denise Woodson Ra, APRN MARBLE INSTALLATION HELPER [address] [place] [address] Assigned PCP 07/17/20 Usha Simon APRN MARBLE INSTALLATION HELPER [address] 578545 Nurse Practitioner Neurological Surgery 01/24/24 [place] [address] [place] [address] [id number] Neurology 01/27/24 Usha Simon APRN MARBLE INSTALLATION HELPER [address] [address] Assigned Neuroscience Provider 02/06/24 03/07/24 Anastasia Stearns, RN Lead Cross Cut Sawyer 02/06/24 Germaine Lopez, W Community Health Worker Primary Care - CC 02/18/24 Robin Zepeda MD [address] [place] [address] [address] Assigned Neuroscience Provider 03/08/24 05/07/24 Lisa Zambrano MD [address] [facility] [address] [place] [address] Assigned Heart and Vascular Provider 05/08/24 07/07/24 Raul Hoyos MD [address] [place] [address] [address] Assigned Neuroscience Provider 05/08/24 07/07/24 Joya Lira Joleen [address] [place] [address] Pharmacist Pharmacist 05/25/24 Joya Lira [facility] [address] [place] [address] Assigned MTM Pharmacist 06/08/24 Fabi Coates MD [address] [place] [address] 75 [place] [address] Genetics, Clinical 06/18/24 Robin Zepeda MD [address] [place] [address] [address] [id number] [place] [address] Assigned Neuroscience Provider 07/08/24 Danna Cardenas PA-C [address] [place] [address] Assigned Heart and Vascular Provider 07/08/24 Felicita Desai, RN Lead Cross Cut Sawyer 07/14/24 documented as of this encounter
--- OUTSIDE RECORDS SUMMARY | 2024-07-16 13:59 | XMS_ITS | Encounter Summary ---
Author Organization [facility] Address [address] [place] [address] Care Team Providers Care Spinneret Cleaner Name Role Phone Timmy Perez MD Unavailable Unavailable Yung Madrigal MD Unavailable Unavailable Frw, None Primary Care Provider Unavailabl e Winston Villatoro OD Unavailable [phone] Apple Sykes MD Primary Care Provider Unavailab Westley Vera MD Unavailable [phone] Alessandra Cabrales APRN TECHNICAL WRITER AND EDITOR Primary Car e Provider Serum, Clara Garland MD Primary Care Provider Serum, Clara Garland MD Unavailable Serum, Clara Garland MD Unavailable [phone] Denise Woodson Ra, APRN TECHNICAL WRITER AND EDITOR Unavailable + [phone] Denise Woodson Ra, APRN TECHNICAL WRITER AND EDITOR Primary Care Provid er Usha Simon APRN TECHNICAL WRITER AND EDITOR Unavailable + [phone] Dangelo Salinas MD Unavailable Usha Simon APRN TECHNICAL WRITER AND EDITOR Unavailable + [phone] Anastasia Stearns RN Unavailable +[phone] Germaine Lopez CHW Unavailable +[phone] Robin Zepeda MD Unavailable [phone] Lisa Zambrano MD Unavailable + [phone] Raul Hoyos MD Unavailable SorayaJoya [facility] Unavailable [phone] Soraya Joya [facility] Unavailable +[phone] Fabi Coates MD Unavailable [phone] DuaneRobin MD Unavailable [phone] Danna Cardenas PA-C Unavailable [phone] Felicita Desai RN Unavailable Unavailab le Encounter Details Date Type Department Care Team (Late st Contact Info) Description 01/30/2006 [facility] in [place] Inpatient Dept [address] [place] [address] Frw, Inpatient Provider Social History Tobacco Use Types Packs/Day Years Used Date Smoking Tobacco: Never Passive Smoke Exposure: Never Smokeless Tobacco: Never Alcohol Use Standard Drinks/Week Comments Not Currently 0 (1 standard drink = 0.6 oz pur e alcohol) minimal Comments No Sex and Gender Information Value Date Recorded Sex Assigned at Not on file Legal Sex 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 ELECTRIC DEICER INSPECTOR Gender Identity Not on file Sexual Orientation [...] pain. PROCEDURE: TOTAL VAGINAL HYSTERECTOMY. SURGEON: Chris TICKER WIRER: Radha ANESTHESIA: Spinal ESTIMATED BLOOD LOSS: 100 [...] st Contact Info) Description 07/20/2024 12:00 PM ELECTRIC DEICER INSPECTOR Virtual Visit [facility] [address] [place] [phone] Denise Woodson Ra, PLANT MANAGER TECHNICAL WRITER AND EDITOR [address] [place] [address] 07/30/2024 8:30 AM ELECTRIC DEICER INSPECTOR Virtual Visit [facility] Neurology [address] 3rd [place] [address] Randy Maradiaga, [address] [place] [address] 08/04/2024 12:00 PM ELECTRIC DEICER INSPECTOR Virtual Visit [facility] Addiction [facility] [place] [address] [place] [address] Arthur Salas, [facility] [address] [place] [address] 08/04/2024 3:30 PM ELECTRIC DEICER INSPECTOR Virtual Visit [facility] [address] [place] [phone] Denise Woodson Ra, PLANT MANAGER [facility] [address] [place], [place] 5223068 08/07/2024 1:00 PM ELECTRIC DEICER INSPECTOR Appointment [facility] [address] [facility] [address] [place] [phone] Danna Cardenas PA-C 6405 [place], [place] 076125 08/10/2024 12:30 PM ELECTRIC DEICER INSPECTOR Virtual Visit [facility] Neuropsychology [address] [phone] Robin Zepeda MD [address] [place] [address] 08/17/2024 12:30 PM ELECTRIC DEICER INSPECTOR Office Visit [facility] Neuropsychology [address] [phone] Robin Zepeda MD [address] [place] [address] Tulio Ogden, PhD [address] [address] 09/04/2024 11:00 AM ELECTRIC DEICER INSPECTOR Office Visit [facility] [address] [place] [phone] Denise Woodson Ra, PLANT MANAGER TECHNICAL WRITER AND EDITOR [address] [place], [place] 15637[address] 09/18/2024 1:00 PM ELECTRIC DEICER INSPECTOR Office Visit [facility] [address] [place] [phone] Denise Woodson Ra, PLANT MANAGER TECHNICAL WRITER AND EDITOR [address] [place], [place] 1902268 09/29/2024 9:00 AM ELECTRIC DEICER INSPECTOR Virtual Visit [facility] Neurology [address] [phone] Randy Maradiaga, [address] [address] 10/09/2024 1:20 PM ELECTRIC DEICER INSPECTOR Office Visit [facility] Heart [address] [place] [phone] Danna Cardenas, PA-C 6405 [place] [address] 10/30/2024 4:00 PM ELECTRIC DEICER INSPECTOR Virtual Visit [facility] Vascular Clinic [place] [address] [place] [phone] Lisa Zambrano MD [address] [place] [address] 12/29/2024 12:45 PM CDT Office Visit [facility] [address] [place] [address] [phone] Fabi Coates MD [address] 032425 12/29/2024 1:45 PM CDT Office Visit [facility]ty Clinic [address] [place] [address] [phone] Fabi Coates MD [address] [place] [address]745 06/01/2025 11:15 AM CDT Appointment [facility] Imaging [address] [place] [phone] Robin Zepeda MD [address] [place] [address] 103235 06/04/2025 11:00 AM CDT Office Visit [facility] Neurosurgery [address] [phone] Robin Zepeda MD [address] [place] [address]8835 Usha Simon APRN [address] 757655 documented as of this encounter Visit Diagnoses Not on filedocumented in this encounter Care Teams Spinneret Cleaner Relationship Specialty Start Date End Date Timmy Perez MD PCP - Obstetrics/Gynecology 03/02/08 08/07/15 Yung Madrigal MD RETIRED PCP - Orthopaedics Orthopedics 08/26/12 01/20/24 Frw, None PCP - General Family Practice 08/26/12 05/03/13 Winston Villatoro OD [facility] [place] [address] [place] [address] PCP - Ophthalmology Ophthalmology 02/11/13 Apple Sykes MD [facility] [place] [address] [place] [address] PCP - General Family Practice 05/04/13 10/25/16 Westley Bates MD XXX RETIRED XXX [address] [place] [address] PCP - ENT Otolaryngology 05/14/13 07/28/18 [facility] TECHNICAL WRITER AND EDITOR [address] [facility] [place] [address] PCP - General Nurse Practitioner 10/26/16 02/06/17 Clara Cornell MD 3[address] [facility] [place] [address] PCP - General Internal Medicine 02/07/17 09/20/20 Clara Cornell MD [address] [place] [address] PCP - Assigned PCP 01/17/17 11/18/18 Denise Woodson Ra, APRN TECHNICAL WRITER AND EDITOR [address] [place] [address] PCP - General Family Practice 09/21/20 Clara Cornell MD [address] [place] [address] Assigned PCP 01/17/17 07/16/20 Denise Woodson Ra, APRN TECHNICAL WRITER AND EDITOR [address] [place] [address] Assigned PCP 07/17/20 Usha Simon APRN TECHNICAL WRITER AND EDITOR [address] [place] [address] 115145 Nurse Practitioner Neurological Surgery 01/24/24 Dangelo Salinas MD [address] [place] [address] Neurology 01/27/24 Usha Simon APRN TECHNICAL WRITER AND EDITOR [address] [place] [address] 542775 Assigned Neuroscience Provider 02/06/24 03/07/24 Anastasia Stearns, RN Lead Collection Specialist 02/06/24 Germaine Lopez, W Community Health Worker Primary Care - CC 02/18/24 Robin Zepeda MD [address] [address] Assigned Neuroscience Provider 03/08/24 05/07/24 Lisa Zambrano MD [address] [place] [address] Assigned Heart and Vascular Provider 05/08/24 07/07/24 Raul Hoyos MD [address] [place] [address] Assigned Neuroscience Provider 05/08/24 07/07/24 Joya Lira RPH [address] [address] Pharmacist Pharmacist 05/25/24 Joya Lira [facility] [address] [place] [address] Assigned MTM Pharmacist 06/08/24 Fabi Coates MD [address] [place] [address] 75 [place] [address] Genetics, Clinical 06/18/24 Robin Zepeda MD 909 [facility]J [place] [address] Assigned Neuroscience Provider 07/08/24 Danna Cardenas PA-C 6405 [place] [address] Assigned Heart and Vascular Provider 07/08/24 Felicita Desai, RN Lead Collection Specialist 07/14/24 documented as of this encounter
--- OUTSIDE RECORDS SUMMARY | 2024-07-16 13:59 | XMS_ITS ---
Author Organization [facility] Address [address] [place] [address] Care Team Providers Care Housekeeping Room Attendant Name Role Phone Winston Villatoro OD Unavailable [phone] Denise Woodson Ra, APRN PINNER PRINTED CIRCUIT BOARDS Unavailable Denise Woodson Ra, APRN PINNER PRINTED CIRCUIT BOARDS Primary Care Provid er Usha Simon APRN PINNER PRINTED CIRCUIT BOARDS Unavailable [phone] Dangelo Salinas MD Unavailable Anastasia Stearns RN Unavailable [phone] Germaine Lopez CHW Unavailable [phone] Joya Lira [facility] Unavailable Joya Lira [facility] Unavailable Fabi Coates MD Unavailable [phone] Robin Zepeda MD Unavailable Danna Cardenas PA-C Unavailable [phone] Felicita Desai RN Unavailable Unavailab Primary Care Care Coordination Status:Enrolled (Active) Start date:02/06/2024 Enrollment date:02/07/2024 Case Team Name Relationship Phone Anastasia Stearns RN Lead Scow Hand(Respons ible Staff) [phone] Germaine Lopez CHW Community Health Worker [phone] Continued Care and Services Coordination
--- OUTSIDE RECORDS SUMMARY | 2024-07-16 13:59 | XMS_ITS | Encounter Summary ---
Author Organization [facility] Address [address] [place] [address] Care Team Providers Care Disaster Recovery Coordinator Name Role Phone Timmy Perez MD Unavailable Unavailable Yung Madrigal MD Unavailable Unavailable Winston Villatoro OD Unavailable [phone] Apple Sykes MD Primary Care Provider Unavailab Westley Vera MD Unavailable [phone] GeorginaAlessandra Gómez APRN CIGAR TOBACCO PROCESSING SUPERVISOR Primary Car e Provider Serum, Clara Garland MD Primary Care Provider Serum, Clara Garland MD Unavailable [phone] Serum, Clara Garland MD Unavailable Denise Woodson Ra, APRN CIGAR TOBACCO PROCESSING SUPERVISOR Unavailable + [phone] Denise Woodson Ra, APRN CIGAR TOBACCO PROCESSING SUPERVISOR Primary Care Provid er Usha Simon APRN CIGAR TOBACCO PROCESSING SUPERVISOR Unavailable + [phone] Dangelo Salinas MD Unavailable Usha Simon HOSPITAL ACCOUNT LIAISON CIGAR TOBACCO PROCESSING SUPERVISOR Unavailable + [phone] Anastasia Stearns RN Unavailable [phone] Germaine Lopez CHW Unavailable [phone] Robin Zepeda MD Unavailable [phone] Lisa Zambrano MD Unavailable + [phone] Raul Hoyos MD Unavailable Soraya Joya [facility] Unavailable [phone] Joya Lira [facility] Unavailable Fabi Coates MD Unavailable [phone] DuaneRobin MD Unavailable Danna Cardenas PA-C Unavailable [phone] Felicita Desai RN Unavailable Unavailab le Encounter Details Date Type Department Care Team (Late st Contact Info) Description 05/06/2013 [facility] Medical Advice [facility] in [address] [address] Apple Sykes MD Social History Tobacco Use Types Packs/Day Years Used Date Smoking Tobacco: Never Smokeless Tobacco: Never Alcohol Use Standard Drinks/Week Comments Yes 0 (1 standard drink = 0.6 oz pur e alcohol) minimal Comments No Sex and Gender Information Value Date Recorded Sex Assigned at Not on file Legal Sex 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 COSMETOLOGIST Gender Identity Not on file Sexual Orientation Not on file 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 documented as of this encounter Plan of Treatment Upcoming Encounters Date Type Department Care Team (Late st Contact Info) Description 07/20/2024 12:00 PM COSMETOLOGIST Virtual Visit [facility] [address] [place] [address] Denise Woodson Ra, HOSPITAL ACCOUNT LIAISON [facility] [address] [place], [place] 4349068 07/30/2024 8:30 AM COSMETOLOGIST Virtual Visit [facility] Neurology Clinic [address] [address] Randy Maradiaga DO [address] [place] [address] 551845 08/04/2024 12:00 PM COSMETOLOGIST Virtual Visit [facility] Mental Health and Addiction [facility] [place] [address] [place] [address] Arthur Salas, [facility] [address] [place] [address] 08/04/2024 3:30 PM COSMETOLOGIST Virtual Visit [facility] [address] [place] [phone] Denise Woodson Ra, HOSPITAL ACCOUNT LIAISON CIGAR TOBACCO PROCESSING SUPERVISOR [address] [place], [place] 1498368 08/07/2024 1:[address] [facility] Heart Care 6405 [facility] [address] [place] [phone] Danna Cardenas PA-C 6405 [place] [address] 08/10/2024 12:30 PM COSMETOLOGIST Virtual Visit [facility] Neuropsychology [address] [phone] Robin Zepead MD [address] [place] [address] 08/17/2024 12:30 PM COSMETOLOGIST Office Visit [facility] Neuropsychology [address] [phone] Robin Zepeda MD [address] [place] [address] Tulio Ogden, PhD [address] [address] 09/04/2024 11:00 AM COSMETOLOGIST [facility] [address] [place] [phone] Denise Woodson Ra, HOSPITAL ACCOUNT LIAISON CIGAR TOBACCO PROCESSING SUPERVISOR [address] [facility] [place] [address] 09/18/2024 1:00 PM COSMETOLOGIST [facility] [address] [place] [phone] Denise Woodson Ra, HOSPITAL ACCOUNT LIAISON CIGAR TOBACCO PROCESSING SUPERVISOR [address] [facility] [place] [address] 09/29/2024 9:00 AM COSMETOLOGIST Virtual Visit [facility] Neurology [address] [phone] Randy Maradiaga, [address] [address] 10/09/2024 1:20 PM COSMETOLOGIST Office Visit [facility] Heart [facility] 6405 [facility] [address] [place] [address] Danna Cardenas PA-C 6405 [place] [address] 10/30/2024 4:00 PM COSMETOLOGIST Virtual Visit [facility] Vascular [place] [address] [place] [phone] Lisa Zambrano MD [address] [place] 419435 12/29/2024 12:45 PM CDT Office Visit [facility] 24[address] [facility] Explorer [facility] 12th [address],[place] [phone] Fabi Coates MD 420 [facility] 75 [place] [address] 12/29/2024 1:45 PM CDT Office Visit [facility] 24[address] [facility] Explorer [facility] [address],[place] [address] Fabi Coates MD 420 [facility] 75 [place] [address] 06/01/2025 11:15 AM CDT Appointment [facility] Imaging [address] [place] [phone] Robin Zepeda MD [address] [place] [address] 895135 06/04/2025 11:00 AM CDT Office Visit [facility] Neurosurgery Clinic [place] 909 [facility] 3rd [place] [address] Robin Zepeda MD [address] [place] [address] 970885 Usha Simon, HOSPITAL ACCOUNT LIAISON CIGAR TOBACCO PROCESSING SUPERVISOR [address] 038845 documented as of this encounter Visit Diagnoses Not on filedocumented in this encounter Care Teams Disaster Recovery Coordinator Relationship Specialty Start Date End Date Timmy Perez MD PCP - Obstetrics/Gynecology 03/02/08 08/07/15 Yung Madrigal MD RETIRED PCP - Orthopaedics Orthopedics 08/26/12 01/20/24 Winston Villatoro OD [facility] [place] 701 [facility] [address] [place] [address] PCP - Ophthalmology Ophthalmology 02/11/13 Apple Sykes MD [facility] [place] [address] [facility] [address] [place] [address] PCP - General Family Practice 05/04/13 10/25/16 Westley Bates MD XXX RETIRED XXX 701 [facility] [address] [place] [address] PCP - ENT Otolaryngology 05/14/13 07/28/18 Alessandra Cabrales APRN CIGAR TOBACCO PROCESSING SUPERVISOR [facility]5 [facility] [place] [address] PCP - General Nurse Practitioner 10/26/16 02/06/17 Clara Cornell MD [address] [place] [address] [place] [address] PCP - General Internal Medicine 02/07/17 09/20/20 Clara Cornell MD [address] [place] [address] PCP - Assigned PCP 01/17/17 11/18/18 Denise Woodson Ra, APRN CIGAR TOBACCO PROCESSING SUPERVISOR [address] [place] [address] PCP - General Family Practice 09/21/20 Clara Cornell MD [address] [place] [address] Assigned PCP 01/17/17 07/16/20 Denise Woodson Ra, APRN CIGAR TOBACCO PROCESSING SUPERVISOR [address] [place] [address] Assigned PCP 07/17/20 Usha Simon APRN CIGAR TOBACCO PROCESSING SUPERVISOR [address] [address] Nurse Practitioner Neurological Surgery 01/24/24 Dangelo Salinas MD [address] [place] [address] Neurology 01/27/24 Usha Simon APRN CIGAR TOBACCO PROCESSING SUPERVISOR [address] [place] [address] Assigned Neuroscience Provider 02/06/24 03/07/24 Anastasia Stearns, RN Lead Garnett Mechanic 02/06/24 Germaine Lopez, W Community Health Worker Primary Care - CC 02/18/24 Robin Zepeda MD [address] [address] Assigned Neuroscience Provider 03/08/24 05/07/24 Lisa Zambrano MD [address] [place] [address] Assigned Heart and Vascular Provider 05/08/24 07/07/24 Raul Hoyos MD [address] [address] Assigned Neuroscience Provider 05/08/24 07/07/24 Joya Lira [facility] [address] [place] [address] Pharmacist Pharmacist 05/25/24 Soraya Joya [facility] [address] [place] [address] Assigned MTM Pharmacist 06/08/24 Fabi Coates MD [address] [place] [address] 75 [place] [address] Genetics, Clinical 06/18/24 Robin Zepeda MD 909 [facility] WE6722HU [place] [address] Assigned Neuroscience Provider 07/08/24 Danna Cardenas PA-C 6405 [place] [address] Assigned Heart and Vascular Provider 07/08/24 Felicita Desai, RN Lead Garnett Mechanic 07/14/24 documented as of this encounter
--- OUTSIDE RECORDS SUMMARY | 2024-07-16 13:59 | XMS_ITS | Encounter Summary ---
Author Organization [place] Address [address] [place] [address] Care Team Providers Care Milk Bottler Name Role Phone Timmy Perez MD Unavailable Unavailable Encounter Details Date Type Department Care Team (Late Contact Info) Description 01/17/2012 3:20 PM CDT [facility] in [address] [phone] Luis Walsh [address] [place] [address] Interface, Drilling Inspector, Social History Tobacco Use Types Packs/Day Years Used Date Smoking Tobacco: Never Passive Smoke Exposure: Never Smokeless Tobacco: Never Alcohol Use Standard Drinks/Week Comments Not Currently 0 (1 standard drink = 0.6 oz pur e alcohol) minimal Comments No Sex and Gender Information Value Date Recorded Sex Assigned at Not on file Legal Sex 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 SEWING MACHINE BOBBIN WINDER Gender Identity Not on file Sexual Orientation Not on file 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 Not on file Not on file Not on file Not on file Not on file Not on file documented as of this encounter Plan of Treatment Upcoming Encounters Date Type Department Care Team (Late st Contact Info) Description 07/20/2024 12:00 PM SEWING MACHINE BOBBIN WINDER Virtual Visit [facility] [address] [place] [phone] Denise Woodson Ra, LYMPHEDEMA THERAPIST FIRE SAFETY MANAGER [address] [place] [address] 07/30/2024 8:30 AM SEWING MACHINE BOBBIN WINDER Virtual Visit [facility] Neurology Clinic [address] [phone] Randy Maradiaga DO [address] [place] [address] 08/04/2024 12:00 PM SEWING MACHINE BOBBIN WINDER Virtual Visit [facility] Mental Health and Addiction Clinic [address] [place] [address] Arthur Salas, [facility] [address] [place] [address] 08/04/2024 3:30 PM SEWING MACHINE BOBBIN WINDER Virtual Visit [facility] [address] [place] [phone] Denise Woodson Ra, LYMPHEDEMA THERAPIST FIRE SAFETY MANAGER [address] [place] [address] 08/07/2024 1:00 PM SEWING MACHINE BOBBIN WINDER Appointment [facility] Heart Care 6405 [facility] [address] [place] [phone] Danna Cardenas, PA-C 6405 [place], [place] 579225 08/10/2024 12:30 PM SEWING MACHINE BOBBIN WINDER Virtual Visit [facility] Neuropsychology [address] [phone] Robin Zepeda MD [address] [place] [address] [id number] [place] [address] 08/17/2024 12:30 PM SEWING MACHINE BOBBIN WINDER Office Visit [facility] Neuropsychology [address] [phone] Robin Zepeda MD 909 [facility] [place] KE5955PY [place] [address] Tulio Ogden, PhD [address] [address] 09/04/2024 11:00 AM SEWING MACHINE BOBBIN WINDER Office Visit [facility] [address] [place] [phone] Denise Woodson Ra, LYMPHEDEMA THERAPIST FIRE SAFETY MANAGER [address] [place], [place] 3676668 09/18/2024 1:00 PM SEWING MACHINE BOBBIN WINDER Office Visit [facility] [address] [place] [address] Denise Woodson Ra, LYMPHEDEMA THERAPIST FIRE SAFETY MANAGER [address] [place], [place] [phone] 09/29/2024 9:00 AM SEWING MACHINE BOBBIN WINDER Virtual Visit [facility] Neurology [address] [phone] Randy Maradiaga DO [address] [place] [address] 247045 10/09/2024 1:20 PM SEWING MACHINE BOBBIN WINDER Office Visit [facility] Heart [place] 049285 [facility] [address] [place] [phone] Danna Cardenas, [facility] [address] [place] [address] 011425 10/30/2024 4:00 PM SEWING MACHINE BOBBIN WINDER Virtual Visit [facility] Vascular [facility] 6405 [facility] [address] [place] [phone] Lisa Zambrano MD [address] [place], [place] 383825 12/29/2024 12:45 PM CDT Office Visit [facility] Pediatric Specialty Clinic [address] [place], [place] [address]e [address] [phone] Fabi Coates MD [address] 132[address] 12/29/2024 1:45 PM CDT Office Visit [facility] Pediatric Specialty Clinic [address] [place] [phone] Fabi Coates MD [address] [place] [address] 937255 06/01/2025 11:15 AM CDT Appointment [facility] Imaging [address] [facility] [address] [place] [phone] Robin Zepeda MD [address] [place] [address] 429485 06/04/2025 11:00 AM CDT Office Visit [facility] Neurosurgery [address] 3rd [place] [phone] Robin Zepeda MD [address] [place] [address] 147125 Usha Simon APRN [address] [address] documented as of this encounter Visit Diagnoses Not on filedocumented in this encounter Care Teams Milk Bottler Relationship Specialty Start Date End Date Timmy Perez MD PCP - Obstetrics/Gynecology 03/02/0807/18 documented as of this encounter
--- OUTSIDE RECORDS SUMMARY | 2024-07-16 13:59 | XMS_ITS ---
Author Organization [facility] Address [address] [place] [id number] Care Team Providers Care Video Player Mechanic Name Role Phone Winston Villatoro OD Unavailable Denise Woodson Ra, APRN CLOTHING DESIGNER Unavailable [phone] Denise Woodson Ra, APRN CLOTHING DESIGNER Primary Care Provid er Usha Simon APRN CLOTHING DESIGNER Unavailable [phone] Dangelo Salinas MD Unavailable Anastasia Stearns RN Unavailable Germaine Lopez [facility] Unavailable Joya Lira [facility] Unavailable [phone] Joya Lira [facility] Unavailable [phone] Fabi Coates MD Unavailable [phone] Robin Zepeda MD Unavailable Danna Cardenas PA-C Unavailable [phone] Felicita Desai RN Unavailable Unavailab le Transitional Care Management Status:Closed (Closed) Start date:05/20/2024 Enrollment date:05/20/2024 End date:06/03/2024 Close reason:Goals met Continued Care and Services Coordination
== END 2024-07-12 21:41 | disposition home or self-care (01) ==
LOC: AMB 07-16 13:47
PROVIDERS: PCP Nurse Practitioner; Visit Provider Emergency Medicine
DX: G45.9 Transient cerebral ischemic attack, unspecified (principal)
CPT/HCPCS: A0425; A0427

== ENCOUNTER 2024-09-08 11:21 | Emergency (ER) | payer OTHER, SELFPAY ==
[2024-09-08 11:44] VITALS: BP 165/91; PULSE 79; RESP 18; TEMP 36.5; O2SAT 97; BMI 41.0
--- NOTE | 2024-09-08 12:03 | CRLHL7_ITS ---
For Patients: As a result of the Century Cures Act, medical imaging exams and procedure reports are released immediately into your electronic medical record. You may view this report before your referring provider. If you have questions, please contact your health care provider. INDICATION: Aspiration COMPARISON: 05/14/2024 TECHNIQUE: PA and lateral 2 view chest. FINDINGS: Lung volumes are good. No focal or diffuse opacities. No pulmonary edema. No pleural effusion. No pneumothorax. No pneumomediastinum. Normal cardiomediastinal silhouette. Atrial septal occluder. Bones: Pectus excavatum. No acute bony finding. IMPRESSION: Lungs clear. No acute findings. Dictated by Albina Smith MD @ 09/08/2024 12:21:10 PM (Electronically Signed)
--- NOTE | 2024-09-08 12:04 | ED_ITS ---
HPI - General Adult General Chief complaint: Difficulty Swallowing Stated complaint: Inhaled food last night-chest pain Time Seen by Provider: 09/08/24 11:22 History of Present Illness HPI narrative: This 48-year-old female comes in because of concern about aspiration that occurred last evening. She states that she was eating a sloppy Alexis and thinks that something went down into her right airway. She was coughing vigorously initially and now is coughing occasionally. She slept okay last night but states that she rolled over to her right side and felt like something that was causing discomfort more in her neck seemed to go down lower into her right chest. She arrives here with normal vital signs and has normal oximetry. She does have a bit of a hoarse voice. She states that she had a stroke 8 months ago and has had 4 or 5 episodes of symptoms somewhat like this since then. She does not have any notable motor dysfunction residual from the stroke but states that she has some altered sensation and which she calls neural fatigue. She is taking an aspirin daily currently. Related Data Home Medications ?Medication ?Instructions ?Recorded ?Confirmed fluticasone furoate 200 1 inh inhalation DAILY 07/03/22 07/12/24 mcg-vilanterol 25 mcg/dose inhalation powder (Breo Ellipta) albuterol sulfate 90 mcg/actuation 2 puff inhalation Q6H PRN 08/01/22 07/12/24 aerosol inhaler magnesium 250 mg tablet 250 mg PO HS 08/02/22 07/12/24 trazodone 100 mg tablet 100 mg PO HS sleep 08/02/22 07/12/24 cetirizine 10 mg tablet (Zyrtec) 10 mg PO DAILY 10/08/23 07/12/24 lorazepam 1 mg tablet 0.5 - 1 mg PO DAILY PRN dizziness 05/07/24 07/12/24 levetiracetam 750 mg tablet 375 mg PO BID 05/08/24 07/12/24 (Bridget) Previous Rx's ?Medication ?Instructions ?Recorded ketorolac 10 mg tablet 10 mg PO Q6H PRN pain 5 days #20 07/03/22 tabs aspirin 81 mg tablet,delayed 81 mg PO DAILY #30 tabs 05/08/24 release Allergies Allergy/AdvReac Type Severity Reaction Status Date / Time bupropion Allergy Intermediate Diarrhea Verified 05/14/24 10:14 codeine Allergy Intermediate epigastric Verified 05/14/24 10:14 pain erythromycin base Allergy Intermediate stomach Verified 05/14/24 10:14 upset, diarrhea morphine AdvReac Verified 07/12/24 19:54 Review of Systems Status of ROS: Reports: 10 or more systems reviewed and unremarkable except as noted in History and below Narrative: Constitutional: No fevers, no weight gain or loss. Eyes: No discharge. No vision changes. HENT: No congestion, no sore throat, no ear pain. Cardiovascular: No chest pain, no palpitations. Respiratory: No shortness of breath. Gastrointestinal: No abdominal pain, no vomiting, no diarrhea. Genitourinary: No dysuria, no hematuria. Musculoskeletal: Normal range of motion. Skin: No rashes, no pruritis. Neurological: No dizziness, weakness, sensory change, speech change. Endo/Heme/Allergies: No bruising or bleeding. No polydipsia. Pysch: no suicidality, no anxiety, no insomnia. All other systems reviewed and are negative. 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, unspecified (ICD-10) Mild persistent asthma (09/27/22) ?J45.30 - Mild persistent asthma, uncomplicated (ICD-10) Asthma ?J45.909 - Unspecified asthma, uncomplicated (ICD-10) History of blood transfusion (1994) ?Z92.89 - Personal history of other medical treatment (ICD-10) History of vitamin D deficiency ?Z86.39 - Personal history of other endocrine, nutritional and metabolic disease (ICD-10) Anxiety and depression ?F41.9 - Anxiety disorder, unspecified (ICD-10) ?F32.A - Depression, unspecified (ICD-10) Fibromyalgia ?M79.7 - Fibromyalgia (ICD-10) Mild persistent asthma ?J45.30 - Mild persistent asthma, uncomplicated (ICD-10) H/O bronchopulmonary dysplasia ?Z87.09 - Personal history of other diseases of the respiratory system (ICD- 10) Stage 1 chronic kidney disease (11/16/20) ?N18.1 - Chronic kidney disease, stage 1 (ICD-10) Simple renal cyst (10/2020) ?N28.1 - Cyst of kidney, acquired (ICD-10) Asthma ?J45.909 - Unspecified asthma, uncomplicated (ICD-10) Surgical History History of laparoscopy ?Z98.890 - Other specified postprocedural states (ICD-10) S/P dilation and curettage (1994) ?Z98.890 - Other specified postprocedural states (ICD-10) H/O tubal ligation ?Z98.51 - Tubal ligation status (ICD-10) Status post excision of lipoma (2011) ?Z98.890 - Other specified postprocedural states (ICD-10) ?Z86.018 - Personal history of other benign neoplasm (ICD-10) History of medial meniscus repair of left knee (08/04/13) ?Z98.890 - Other specified postprocedural states (ICD-10) History of laparoscopic cholecystectomy (09/29/20) ?Z90.49 - Acquired absence of other specified parts of digestive tract (ICD- 10) History of hysterectomy for benign disease (2005) ?Z90.710 - Acquired absence of both cervix and uterus (ICD-10) History of catheter-based closure of atrial septal defect (06/2006) ?Z87.74 - Personal history of (corrected) congenital malformations of heart and circulatory system (ICD-10) Family History Maternal Grandmother Stroke Paternal Grandfather Diabetes Daughter Depression Social History Narrative: She recently moved to [place]. 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 She has a college education She exercises 5 days a week with walking in treadmill 2M She does not smoke She does not drink alcohol or use recreational drugs What is your current living situation?: I presently have a place to live Problems where you live: no known problems Problems where you live details: na In the past 12 months, utilities in danger of being shut off: no In past 12 months, lack of transportation kept you from medical appts, meetings, work, or getting things needed for daily living: no In the past 12 mos, have been you worried that your food would run out before you had money to buy more?: never true In the past 12 mos, the food you bought just didn't last and you didn't have money to buy more?: never true Highest level of school completed/degree received: Associate degree: occupational, technical, vocational program Smoking Status: Never smoker Do you use any of these nicotine containing products: None Second hand tobacco smoke exposure: No How often do you have a drink containing alcohol: never How often do you have six or more drinks on one occasion: Never AUDIT-C Alcohol total score: 0 Non-prescribed substance use: denies use Caffeine: Yes How often does anyone, including family, friends and others, physically hurt you : never How often does anyone, including family, friends and others, insult or talk down to you: never How often does anyone, including family, friends and others, threaten you with harm: never How often does anyone, including family, friends and others, scream or curse at you: never Are you using contraception or practicing any form of control: Yes (hysterectomy) service: No Exam Narrative: Exam Narrative: Constitutional: Well-developed, well-nourished, no acute distress. HEENT: Normocephalic, atraumatic. Oropharynx appears normal. Neck: Normal range of motion. Nontender. Supple. Heart: Regular. No murmurs. Normal rate. Intact distal pulses. Lungs: Clear to auscultation. No chest discomfort. No wheezes, rhonchi, or rales. Abdomen: Normal bowel sounds. Nontender. No rebound tenderness. Genitalia: Deferred. Back: No midline tenderness. Normal range of motion. Extremities: Normal range of motion. No injury. Skin: Intact. No rash. Warm. No erythema or pallor. Neurologic: No altered sensation. No weakness. Alert and oriented. Psychiatric: No suicidality. No anxiety or depression. No insomnia. Nursing notes and vitals signs are reviewed. Const: Vital Signs, click to edit/add: Vital Signs - 24 hr 09/08/24 11:44 Temperature 97.7 F Pulse Rate [Pulse Oximeter] 79 Respiratory Rate 18 Blood Pressure [Ri ght Upper Arm] 165/91 H Pulse Oximetry 97 Oxygen Delivery Me thod Room Air Course Vital Signs Vital signs: Initial Vital Signs Temperature 97.7 F 09/08/24 11:44 Temperature Source Temporal Artery Scan 09/08/24 11:44 Pulse Rate 79 09/08/24 11:44 Respiratory Rate 18 09/08/24 11:44 Blood Pressure 165/91 H 09/08/24 11:44 Blood Pressure Mean 115 H 09/08/24 11:44 Pulse Oximetry 97 09/08/24 11:44 Oxygen Delivery Method Room Air 09/08/24 11:44 Vital Signs Temperature 97.7 F 09/08/24 11:44 Pulse Rate 79 09/08/24 11:44 Respiratory Rate 18 09/08/24 11:44 Blood Pressure 165/91 H 09/08/24 11:44 Pulse Oximetry 97 09/08/24 11:44 Oxygen Delivery Method Room Air 09/08/24 11:44 Temperature 97.7 F 09/08/24 11:44 Pulse Rate 79 09/08/24 11:44 Respiratory Rate 18 09/08/24 11:44 Blood Pressure 165/91 H 09/08/24 11:44 Pulse Oximetry 97 09/08/24 11:44 Oxygen Delivery Method Room Air 09/08/24 11:44 Medical Decision Making MDM Narrative Medical decision making narrative: This patient comes in with concern about aspiration event that occurred last night. She arrives here with normal vital signs and actually has a normal exam. She does have somewhat of a hoarse voice but otherwise are no abnormalities detected. A chest x-ray is obtained and this also shows normal findings. I gave reassurance as to the patient. She did cough vigorously initially but now is just coughing occasionally. I stated that this is really what her body needs to do and that there can be some reactive inflammation that can cause some symptoms that should settle down. She does not need a bronchoscopy or further evaluation at this time. I did alert her to signs or symptoms that would indicate a need for return re-evaluation. Discharge Plan Discharge Clinical Impression: Aspiration into airway Patient Disposition: Home, Self-Care Condition: Stable Additional Instructions: Use [id number] medicines as needed and directed. Activity as tolerated. Follow up with MD or return if worsening symptoms occur. Prescriptions: No Action cetirizine [Zyrtec] 10 mg tablet 10 mg PO DAILY albuterol sulfate 90 mcg/actuation HFA aerosol inhaler 2 puff inhalation Q6H PRN magnesium 250 mg tablet 250 mg PO HS fluticasone furoate-vilanterol [Breo Ellipta] 200-25 mcg/dose blister with device 1 inh INHALATION DAILY ketorolac 10 mg tablet 10 mg PO Q6H PRN (Reason: pain) 5 Days Qty: 20 0RF trazodone 100 mg tablet 100 mg PO HS lorazepam 1 mg tablet 0.5 - 1 mg PO DAILY PRN (Reason: dizziness) levetiracetam [Keppra] 750 mg tablet 375 mg PO BID aspirin 81 mg Tablet,Delayed Release (Dr/Ec) 81 mg PO DAILY Qty: 30 0RF Follow Up/Referrals: EFRAÍN MAYA RA, AVIATION MEDICINE SPECIALIST, INCIDENT RESPONSE ENGINEER [Primary Care Provider] - Stand Alone Forms: [facility] Info Instructions
[2024-09-08 13:00] VITALS: PULSE 72; RESP 18; O2SAT 99
== END 2024-09-08 13:06 | disposition home or self-care (01) ==
PROVIDERS: Emergency Provider Emergency Medicine Emergency Medical Services; PCP Nurse Practitioner
DX: T17.228A Food in pharynx causing other injury, initial encounter (principal)
CPT/HCPCS: 71046; 99283; 99284

== ENCOUNTER 2024-09-14 11:15 | Outpatient (RCR) | payer OTHER, MEDICAID, SELFPAY | END 2024-11-18 12:39 | disposition home or self-care (01) | PROVIDERS: Visit Provider Psychiatry & Neurology Neurology | DX: Z86.73 Personal history of transient ischemic attack (TIA), and cerebral infarction without residual deficits (principal); R53.83 Other fatigue; R42 Dizziness and giddiness; R26.81 Unsteadiness on feet; H51.11 Convergence insufficiency; M54.2 Cervicalgia; Z51.89 Encounter for other specified aftercare | CPT/HCPCS: 97110; 97112; 97161; 97162; 97535 ==

== ENCOUNTER 2024-09-14 12:30 | Outpatient (RCR) | payer OTHER, MEDICAID, SELFPAY ==
--- NOTE | 2024-07-23 16:41 | OT.OPGNDN2 ---
OT Outpatient General/Neuro Daily Note OT Outpatient General/Neuro Daily Note* Start: 05/07/24 19:59 Freq: Status: Active Protocol: Document 07/23/24 15:52 EAV (Rec: 07/23/24 16:12 EAV Desktop) E-signed By DAVE Macias Type of Note Type of Note Type of Note Discharge Note Visit Number [id number] Insurance Information Insurance Information Insurance Information [facility] History/Precautions Current Condition Referring Provider Dr. Irvin Medical Diagnoses CVA I63.9 Treatment Diagnoses right upper extremity weakness , cognitive impairment. Date of Onset 01/09/24 Patient Subjective Subjective Patient Subjective Patient arrived with pleasant affect and states, I have been doing good, not experiencing any symptoms like last week. Pain Assessment Pain Pain No Coordination Assessment Coordination Test Side Coordination Test Side Left Side,Right Side Left Side Disdiadokinesis/Hand Turning Normal Performance 9-Hole Test 19.18 Right Side Disdiadokinesis/Hand Turning Normal Performance 9-Hole Test 21.21 Cognitive Assessments Performed Oriented Patient oriented Person,Place,Time,Situation Vision/Hearing Vision Vision Changes Comments Within upcoming sessions, therapist recommends completing visual tests including scanning test for visual observation and dual tasking. OT OP Daily General/Neuro Assessment/Note Therapeutic Activity Therapeutic Activity Minutes (minutes) 40 Therapeutic Activity Comments Strengths and Weaknesses Activity Compensatory Strategies Education with handout Cognition - memory recall activity (90% accuracy is 6/7 main ideas) she restated 4/7 main components of the story Fine motor tests (stacking dice and blocks, 9-hole peg test) Cognitive Game (multitasking and mental calculating) Prioritizing ADLs Worksheet Activity Self-Care/Home Management Self-Care/Home Management Minutes ( 10 minutes) Self-Care/Home Management Comments Symptom monitoring Total Occupational Therapy Time Occupational Therapy Minutes 50 Occupational Therapy Treatment Plan - OP Goals Goals Within 2-3 months, the patient will... 1. be educated in compensatory strategies for memory and cognitive flexibility. - Goal met 07/23/24 2. complete short term memory task during OT with 90% accuracy using compensatory strategies. - Goal partially met 07/23/24 3. complete moderate to complex problem-solving tasks with 90% accuracy to complete home and work tasks safely and accurately. -Goal met 4. demonstrate normal coordination in bilateral upper extremities. -Goal met 07/16/24 5. complete an IADL task with one rest break for 30-minute task. -Goal met 07/02/24 Treatment Plan Treatment Plan Therapeutic Activities,Self- Care/Home Management,Education ,Functional/Cognitive Skills Expected Frequency 1x Week Expected Duration 8-10 Weeks Assessment Assessment Assessment Patient arrived for her 16th and final session with pleasant affect and states, I have been doing good, not experiencing any symptoms like last week. Therapist provided patient with overview of today's session which included skilled activities revolving around fine motor and cognition including memory recall and prioritization, patient receptive. Therapist reports monitoring patient's symptoms throughout session. Therapist inquired with patient regarding homework she was given, patient receptive and reports I downloaded the brian version of [employer] after learning how to play and I have been really enjoying it. During session, therapist facilitated weekly strengths and weaknesses activity, and provided time for discussion and reflection. Therapist then facilitated some fine motor tests with patient, in which, she tested WNL for both hands. Therapist then provided patient with some education on continuing use of trialing compensatory strategies to promote cognitive skills, patient receptive and provided a handout. Next, therapist engaged patient in a prioritization activity where she put together four separate lists based on their level of urgency and importance to help her continue working towards continued cognitive skill- building with a goal date of August. Patient continues to demonstrate positive feedback towards occupational therapy sessions. Therapist reports that patient has continued to implement the skills she has learned in therapy into her home setting, therapist notes that patient does not require the continued need of occupational therapy but if noticing declines or areas of need may re-seek skilled OT services. Patient will be transitioning now from OT to ST to continue working on speech and higher-level cognition. Occupational Therapy Billing Units Treatment Minutes Timed Treatment Minutes 50 Total Treatment Minutes 50 Billing Units Self Care/Home Management 1 Therapeutic Activities 3 Certification Statement Certification Statement I Certify That: Therapy Services Provided, Therapy Plan Established, Therapy Plan Reviewed Student Supervision Student Supervision Patient Treatment Provided by Student Yes with Supervision Student Documentation Reviewed Yes Student Signature LIBORIO Sims/Jerilyn Priec , OTR/L [id number] Discharge Note Discharge Note Discharge Summary Pt. has been seen for 16 sessions s/p ischemic cerebral infarction for right upper extremity weakness and cognitive impairments. She has met 4 of her 5 goals and has made significant progress in cognitive skills related to visual processing. 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 Date of First Visit for Therapy 05/07/24 Date of Last Visit for Therapy 07/23/24 Initial Primary Functional Limitations/ Fine motor coordination Concerns Visual processing lack of endurance for cognitive tasks Interventions Provided During Treatment Evaluation,Therapeutic Activities,Self Care/Home Management,Education Recommendations/Reason for Discharge Progress Reached Plateau Other Reason for Discharge Progress to continue with Speech Therapy on cognitive skills Discharge Instructions Continue with compensation techniques f/u w/ CORRUGATOR OPERATOR HELPER Continue working on cognitive strategies
--- NOTE | 2024-07-27 13:51 | SLP.EVAL ---
CLIENT TECHNICAL SUPPORT ASSOCIATE Eval CLIENT TECHNICAL SUPPORT ASSOCIATE Eval Start: 07/27/24 13:23 Freq: Status: Active Protocol: Document 07/27/24 13:23 DENA (Rec: 07/27/24 13:46 DENA Desktop) E-signed By Bindu Otto MA, CCC, CLIENT TECHNICAL SUPPORT ASSOCIATE CLIENT TECHNICAL SUPPORT ASSOCIATE System Review History & Reason For Referral Type of Speech Evaluation Cog Eval Rehabilitation Order Evaluation and Treat Date of Order 04/23/24 Reason for Referral CVA (b/l hemisphere L>R frontal, parietal, left pre and post central gyrus) Onset Date Of Patient's Problem 01/09/24 Medical Diagnosis CVA Treatment Diagnosis Cognitive-linguistic deficits Pertinent Medical History 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 Re hospitalized with subsequent stroke-like symptoms 05/14/24. Type 1 dural fistula. COPD. DDD. Depressive Disorder. MONAE. ADHD. Patient reports remote history of functional CVA symptoms following bout of RSV at [facility] in 2021. Pain Pain Location & Comments None, though she started getting a headache toward the end of testing today Hearing Information Hearing Status WNL Vision Information Vision Status Glasses Patient Orientation Orientation & Mental Status Oriented and motiveated CLIENT TECHNICAL SUPPORT ASSOCIATE Initial Assessment/POC Subjective Information Subjective/Pain Comment Pleasant and motivated Assessment & Impression Rehabilitation Potential Comments Good Assessment/Impression Patient Report: Jose reported she completed speech therapy this summer following her CVA. 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 Stuff just went backwards and I've been struggling ever since. She notices difficulties with short-term recall, word- finding, and recall for conversations. She stated she was probably not yet prepared to return to work so quickly following her stroke. She enjoys her work as a medical typist, and hopes to return in August. She'll be allowed to work as little as 12 hours per week to begin. Education: Associated Degree. 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 Right Handed COGNITIVE TESTING: AUDITORY COMPREHENSION: WFL Moderately Complex Yes/No Questions: 9/10 Body Commands: 2-step: 5/5, 3- step: 5/5 VERBAL EXPRESSION: WFL Sentence Formulation: 6/6 Defining Words: 10/10 Multiple Definitions: 5/5 MATH: WNL Single digits: 8/8 Multi digit: 6/6 Word Problems: 3/3 ATTENTION: [facility] Test of Sustained Attention and Tracking (TSAT): Total Time 109 seconds/0 errors (Not normed for ages under 50, but Mean for females 50-59 = 92 seconds (SD 26), 2 errors (SD 2). ASSESSMENT: Preliminary testing shows cognitive skills that are within functional limits. However, the client reports a high cognitive baseline, and continues to struggle with high level cognitive demands in daily life. Her goal is to return to work as soon as August, and would like to feel ready for her return to work. High level cognitive treatment is recommended to address attention, organization and recall. Further testing is needed - scheduled for next week Saturday. She also has neuropsychological testing scheduled for early August, which is appropriate. Functional Limitations & Outcome/Goals Goals/Functional Outcomes CLIENT GOAL: Successful return to work CARE HOME GOAL: Patient will report cognitive skills at or near her pre-CVA baseline. SHORT TERM GOALS: Patient will verbalize comprehension of cognitive evaluation results and recommendations. Patient will complete increasingly challenging high- level attention tasks with 90% accuracy. Patient will participate in diagnostic treatment tasks addressing memory and organization. Further goals pending results. Intervention Plan & Frequency Frequency 1-2 per wk Duration 12 wks Discharge Plan Patient Will be Discharged from Therapy Completion of LTG(s), Independent w/HEP Therapist Signature & License # I Certify That Therapy Services Provided, Therapy Plan Established Therapist Signature & License Number Bindu Otto [facility]-CLIENT TECHNICAL SUPPORT ASSOCIATE # [id number] Certification Date Date of First Visit for Therapy 07/27/24 Date of Last Visit to Physician 04/23/24 Clinic Certification # #[id number] Recertification Due Date 10/25/24 Physician Signature Signature of Physician Indicates Treatment Plan,Medically Needed Services Physician Signature & Date Required Please Sign/Date Here Dysphagia Education Topics Education Topics Teaching Recipient Patient Teaching Methods Verbal Speech/Language Pathology Billing Units Billing Units Speech 1 Hr Cogn Perf Test 1
--- NOTE | 2024-09-18 13:22 | SLP.DPN ---
JUNIOR PROGRAMMER ANALYST Daily Progress Note JUNIOR PROGRAMMER ANALYST Daily Progress Note Start: 08/03/24 12:54 Freq: Status: Active Protocol: Document 09/14/24 15:42 LE (Rec: 09/14/24 16:04 LE [id number]) E-signed By Luis Eduardo Altamirano, JUNIOR PROGRAMMER ANALYST JUNIOR PROGRAMMER ANALYST Daily Progress Note Subjective Note Type Daily Note,Discharge Note Visit Number 7 Subjective/Pain Comments Patient pleasant, cooperative and motivated. Patient stated that she had an aspiration event on September 07 when she was eating sloppy joes on toast. She felt that a piece of the food was stuck in the back of her mouth and she spent all night coughing trying to dislodge it. Around 2AM in bed, she felt it dislodge with her coughing and go down so she went back to sleep. In the morning she had increased coughing and chest pain so she went to the [facility] where her chest x-ray was clear and she returned home. On Saturday morning, she woke up with SOB and went to [facility] where her chest x-ray showed opacities. She reports that she has had about 4-5 choking episode on water or her own saliva since June and this was the first time she choked on solids. She would benefit from a video swallow study to further assess the pharyngeal phase of the swallow. She is seeing her primary doctor on Saturday and will request orders. Pain Since Last Visit None Daily Treatment Information Interventions Provided Today Education provided to patient on dysphagia, video swallow study and safe swallow strategies that she can implement immediately. Patient verbalized understanding. Reassessed high level attention with the Test of Sustained Attention and Tracking (TSAT). Her most recent score on this assessment was 129 seconds with no errors. Baseline for a 50?59-year-old female is 92 seconds with 1.5 errors. Patient was asked to complete the tasks as quickly as possible but as accurately as possible. Patient was able to complete in 81 seconds with 2 errors. She endorses that she does strive for accuracy and does better with taking her time. Patient reports that work is going awesome and starting this week she has increased her hours to 20 hours/week-five hours per day, four days per week. 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 Total Treatment Time (Minutes) 60 Query Text:Eval and Treatment total time Goals/Functional Outcomes Goals/Functional Outcomes CLIENT GOAL: Successful return to work. Goal met 09/14/24: patient is successfully working 20 hours/week and is performing well at her job. USP GOAL: Patient will report cognitive skills at or near her pre-CVA baseline. Goal met 09/14/24. Neuropsych testing completed with no reported cognitive deficits. Patient continues to have changes with cognitive endurance so is pacing herself at work and taking rest breaks when needed. STG1: Patient will complete increasingly challenging high- level attention tasks with 90% accuracy. Goal met 09/14/24. High level attention is WFL based on re-assessment using TSAT. Patient has not noticed any difficulties with attention that are impacting her job performance. STG 2: Patient will utilize compensatory memory strategies for work related tasks as well as activities of daily living with 90% of the time. Goal met 09/14/24. Patient has implemented several memory strategies such as check lists , double checking her work, and white board on refridgerator to remind of daily tasks. Daily Assessment/POC Assessment Patient has made steady gains in therapy and has successfully returned to work part-time. Although her cognitive endurance remains below baseline, she is functioning well at home and at work. Treating Therapist's Name & License Luis Eduardo Altamirano MS CCC-JUNIOR PROGRAMMER ANALYST # Number [id number] Discharge Information Date of First Visit for Therapy 07/27/24 Date of Last Visit for Therapy 09/14/29 Total Number of Visits 7 Initial Primary Functional Limitations/ Patient presented initially Concerns with scoring WFL on cognitive assessment, however, was struggling with high level functional cognition in daily life at home and was concerned about being able to successfully return to work. Comments Regarding Expected Functional Given patient's high level of Outcomes cognitive function prior to CVAs and her motivation, it was anticipated that patient would be successful with a slow integration back to work and be able to participate more in activities that she enjoyed prior to her CVA. Interventions Provided During Treatment Education, Compensatory Comments strategies for cognition, high level cognitive therapy tasks to improve cognitive function and endurance. Patient has successfully returned to work 20 hours/week and has improved her cognitive endurance to be able to participate more in activities and tasks at home. She feels confident in discharging from speech therapy as she has learned compensatory techniques and is aware of her strengths and areas of weakness. She continues to improve her cognitive endurance and is competent listening to her body and taking breaks/rest when needed. Reasons for Discharge Met All Therapy Goals Discharge Instructions Recommend a slow and gradual increase in work hours due to continued reduction in cognitive endurance. Patient is currently working 20 hours/ week and working five hours per day (4 days per week) and is able to split those five hours into a morning and afternoon section which allows her to take a break between where she limits distractions and gives her brain a break from any cognitive tasks (i.e. , not looking at phone, reading, or watching TV but rather resting in a non- distracting environment). Speech/Language Pathology Billing Units Billing Units Cognitive Function Initial 15 1 Cognitive Function Subseq 15 3
== END 2024-11-02 13:44 | disposition home or self-care (01) ==
PROVIDERS: Visit Provider Family Medicine
DX: I63.9 Cerebral infarction, unspecified (principal); R47.89 Other speech disturbances; Z51.89 Encounter for other specified aftercare
CPT/HCPCS: 96125; 97110; 97129; 97130; 97165; 97530; 97535; X5282

== ENCOUNTER 2024-09-15 06:23 | Emergency (ER) | payer OTHER, SELFPAY ==
[2024-09-15] VITALS (8 sets, daily range): BP systolic 124–145; BP diastolic 80–100; PULSE 68–76; RESP 18; TEMP 36.1; O2SAT 98–100; BMI 31.9
--- NOTE | 2024-09-15 06:44 | CRLHL7_ITS ---
For Patients: As a result of the Century Cures Act, medical imaging exams and procedure reports are released immediately into your electronic medical record. You may view this report before your referring provider. If you have questions, please contact your health care provider. INDICATION: Cough COMPARISON: September 08, 2022 4 TECHNIQUE: PA and lateral views of the chest were acquired FINDINGS: TUBES AND LINES: None. HEART AND MEDIASTINUM: The heart size is normal. The mediastinal contour appears normal for patient age.Atrial septal occlusion device noted. LUNGS AND PLEURAL SPACES: The lungs appear normal.The pleural spaces are unremarkable. OSSEOUS STRUCTURES: Age-appropriate appearance. No acute focal finding.Incidental pectus excavatum deformity IMPRESSION: No evidence of active pulmonary disease. Dictated by Miah Bella MD @ 09/15/2024 7:14:10 AM (Electronically Signed)
--- NOTE | 2024-09-15 06:46 | ED_ITS ---
HPI - SOB/Dyspnea General Date Seen: 09/15/24 <Rodrigue Be MD - Last Filed: 09/15/24 07:12> Chief Complaint: Shortness of Breath/Dyspnea <Rodrigue Be MD - Last Filed: 09/15/24 07:12> Stated Complaint: shortness of breath, chess pain <Rodrigue Be MD - Last Filed: 09/15/24 07:12> Time Seen by Provider: 09/15/24 06:33 <Rodrigue Be MD - Last Filed: 09/15/24 07:12> Source: patient <Rodrigue Be MD - Last Filed: 09/15/24 07:12> Mode of arrival: ambulatory <Rodrigue Be MD - Last Filed: 09/15/24 07:12> Limitations: no limitations <Rodrigue Be MD - Last Filed: 09/15/24 07:12> History of Present Illness HPI Narrative: Patient is a 49-year-old female who presents here with shortness of breath and left-sided chest pain, she describes the chest pain in her back worse when she takes a deep breath in or walks around. She does not notice any difference when she sit not per laying down. She said this is been for his since she aspirated some food, she presents now for this. She was seen her after this initial episode occurred, she did not have chest pain or shortness of breath at that time. She has no personal history of any cardiac disease. In fact she was worked up by Cardiology, is due to follow-up with them in October of this year. She has had a stress test she tells me, CT angiogram, in his Zio patch which were all normal by her accounts. No family history of heart disease, she is a nonsmoker, no history of diabetes or elevated cholesterol. Denies any fevers chills or sweats associated with this, she did not receive the flu shot this year. <Rodrigue Be MD - Last Filed: 09/15/24 07:12> MD elicited complaint: shortness of breath, cough, pain with inspiration and chest pain <Rodrigue Be MD - Last Filed: 09/15/24 07:12> Pertinent past history: other (Previous strokes. On aspirin prophylaxis. 162 mg a day.) <Rodrigue Be MD - Last Filed: 09/15/24 07:12> Context: choking/aspiration <Rodrigue Be MD - Last Filed: 09/15/24 07:12> Severity: moderate <Rodrigue Be MD - Last Filed: 09/15/24 07:12> Known history of: aspiration pneumonia <Rodrigue Be MD - Last Filed: 09/15/24 07:12> Treatment prior to arrival: none <Rodrigue Be MD - Last Filed: 09/15/24 07:12> Related Data Home oxygen amount: none <Rodrigue Be MD - Last Filed: 09/15/24 07:12> Home Medications: Home Medications ?Medication ?Instructions ?Recorded ?Confirmed fluticasone furoate 200 1 inh inhalation DAILY 07/03/22 07/12/24 mcg-vilanterol 25 mcg/dose inhalation powder (Breo Ellipta) albuterol sulfate 90 mcg/actuation 2 puff inhalation Q6H PRN 08/01/22 07/12/24 aerosol inhaler magnesium 250 mg tablet 250 mg PO HS 08/02/22 07/12/24 trazodone 100 mg tablet 100 mg PO HS sleep 08/02/22 07/12/24 cetirizine 10 mg tablet (Zyrtec) 10 mg PO DAILY 10/08/23 07/12/24 lorazepam 1 mg tablet 0.5 - 1 mg PO DAILY PRN dizziness 05/07/24 07/12/24 levetiracetam 750 mg tablet 375 mg PO BID 05/08/24 07/12/24 (Keppra) Previous Rx's ?Medication ?Instructions ?Recorded ketorolac 10 mg tablet 10 mg PO Q6H PRN pain 5 days #20 07/03/22 tabs aspirin 81 mg tablet,delayed 81 mg PO DAILY #30 tabs 05/08/24 release prednisone 20 mg tablet 40 mg (2 x 20 mg) PO DAILY #10 tabs 09/15/24 <Rodrigue Be MD - Last Filed: 09/15/24 07:12> Allergies/Adverse Reactions: Allergies Allergy/AdvReac Type Severity Reaction Status Date / Time bupropion Allergy Intermediate Diarrhea Verified 09/15/24 09:09 codeine Allergy Intermediate epigastric Verified 09/15/24 09:09 pain erythromycin base Allergy Intermediate stomach Verified 09/15/24 09:09 upset, diarrhea morphine AdvReac Verified 09/15/24 09:09 <Rodrigue eB MD - Last Filed: 09/15/24 07:12> Review of Systems Status of ROS: Reports: 10 or more systems reviewed and unremarkable except as noted in History and below <Rodrigue Be MD - Last Filed: 09/15/24 07:12> [facility] Medical History: Medical History History of cerebrovascular disease ?Z86.79 - Personal history of other diseases of the circulatory system (ICD- 10) Dural arteriovenous fistula (~12/2023) ?I67.1 - Cerebral aneurysm, nonruptured (ICD-10) Fibromuscular dysplasia ?I77.3 - Arterial fibromuscular dysplasia (ICD-10) Seizure (01/14/24) ?R56.9 - Unspecified convulsions (ICD-10) Ischemic cerebrovascular accident (CVA) (01/09/24) ?I63.9 - Cerebral infarction, unspecified (ICD-10) History of cerebral angiography (01/09/24) ?Z98.890 - Other specified postprocedural states (ICD-10) Headache ?R51.9 - Headache, unspecified (ICD-10) 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, unspecified (ICD-10) Mild persistent asthma (09/27/22) ?J45.30 - Mild persistent asthma, uncomplicated (ICD-10) Asthma ?J45.909 - Unspecified asthma, uncomplicated (ICD-10) History of blood transfusion (1994) ?Z92.89 - Personal history of other medical treatment (ICD-10) History of vitamin D deficiency ?Z86.39 - Personal history of other endocrine, nutritional and metabolic disease (ICD-10) Anxiety and depression ?F41.9 - Anxiety disorder, unspecified (ICD-10) ?F32.A - Depression, unspecified (ICD-10) Fibromyalgia ?M79.7 - Fibromyalgia (ICD-10) Mild persistent asthma ?J45.30 - Mild persistent asthma, uncomplicated (ICD-10) H/O bronchopulmonary dysplasia ?Z87.09 - Personal history of other diseases of the respiratory system (ICD- 10) Stage 1 chronic kidney disease (11/16/20) ?N18.1 - Chronic kidney disease, stage 1 (ICD-10) Simple renal cyst (10/2020) ?N28.1 - Cyst of kidney, acquired (ICD-10) Asthma ?J45.909 - Unspecified asthma, uncomplicated (ICD-10) <Rodrigue Be MD - Last Filed: 09/15/24 07:12> Surgical History: Surgical History History of laparoscopy ?Z98.890 - Other specified postprocedural states (ICD-10) S/P dilation and curettage (1994) ?Z98.890 - Other specified postprocedural states (ICD-10) H/O tubal ligation ?Z98.51 - Tubal ligation status (ICD-10) Status post excision of lipoma (2011) ?Z98.890 - Other specified postprocedural states (ICD-10) ?Z86.018 - Personal history of other benign neoplasm (ICD-10) History of medial meniscus repair of left knee (08/04/13) ?Z98.890 - Other specified postprocedural states (ICD-10) History of laparoscopic cholecystectomy (09/29/20) ?Z90.49 - Acquired absence of other specified parts of digestive tract (ICD- 10) History of hysterectomy for benign disease (2005) ?Z90.710 - Acquired absence of both cervix and uterus (ICD-10) History of catheter-based closure of atrial septal defect (06/2006) ?Z87.74 - Personal history of (corrected) congenital malformations of heart and circulatory system (ICD-10) <Rodrigue Be MD - Last Filed: 09/15/24 07:12> Family History: Family History Maternal Grandmother Stroke Paternal Grandfather Diabetes Daughter Depression <Rodrigue Be MD - Last Filed: 09/15/24 07:12> Social History: Social History Narrative: She recently moved to [place]. 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 She has a college education She exercises 5 days a week with walking in treadmill 2M She does not smoke She does not drink alcohol or use recreational drugs What is your current living situation?: I presently have a place to live Problems where you live: no known problems Problems where you live details: na In the past 12 months, utilities in danger of being shut off: no In past 12 months, lack of transportation kept you from medical appts, meetings, work, or getting things needed for daily living: no In the past 12 mos, have been you worried that your food would run out before you had money to buy more?: never true In the past 12 mos, the food you bought just didn't last and you didn't have money to buy more?: never true Highest level of school completed/degree received: Associate degree: occupational, technical, vocational program Smoking Status: Never smoker Do you use any of these nicotine containing products: None Second hand tobacco smoke exposure: No How often do you have a drink containing alcohol: never How often do you have six or more drinks on one occasion: Never AUDIT-C Alcohol total score: 0 Non-prescribed substance use: denies use Caffeine: Yes How often does anyone, including family, friends and others, physically hurt you : never How often does anyone, including family, friends and others, insult or talk down to you: never How often does anyone, including family, friends and others, threaten you with harm: never How often does anyone, including family, friends and others, scream or curse at you: never Are you using contraception or practicing any form of control: Yes (hysterectomy) service: No <Rodrigue Be MD - Last Filed: 09/15/24 07:12> Exam Narrative: Exam Narrative: On examination in room 6 she appears to be in no apparent distress, slight elevated blood pressure is noted, but other than that her vital signs are normal. She is speaking to me in full sentences, but tells me that she is short of breath. Pupils equal round reactive to light her TMs are normal oropharynx is normal, neck is supple full range of motion chest is good air entry bilaterally with absence of wheezing or crackles noted her heart sounds are normal no clicks murmurs or gallops her abdomen is soft there is no guarding no organomegaly no pain palpable. No CVA tenderness she moves all extremities independently well she does not have pitting edema of her lower extremities. Skin reveals no rashes. <Rodrigue Be MD - Last Filed: 09/15/24 07:12> Const: Vital Signs, click to edit/add: Vital Signs - 24 hr 09/15/24 06:27 09/15/24 06:44 09/15/24 09:00 Temperature 97.0 F L Pulse Rate Pulse Rate [Left P ulse Oximeter] 71 76 Respiratory Rate 18 18 Blood Pressure [Ri ght Upper Arm] 145/100 H 141/83 H Pulse Oximetry 98 98 98 Oxygen Delivery Me thod Room Air Room Air 09/15/24 09:10 Temperature Pulse Rate 68 Pulse Rate [Left P ulse Oximeter] Respiratory Rate Blood Pressure [Ri ght Upper Arm] Pulse Oximetry 98 Oxygen Delivery Me thod <Rodrigue Be MD - Last Filed: 09/15/24 07:12> Vital Signs, click to edit/add: Vital Signs - 24 hr 09/15/24 06:27 09/15/24 06:44 09/15/24 09:00 Temperature 97.0 F L Pulse Rate Pulse Rate [Left P ulse Oximeter] 71 76 Respiratory Rate 18 18 Blood Pressure [Ri ght Upper Arm] 145/100 H 141/83 H Pulse Oximetry 98 98 98 Oxygen Delivery Me thod Room Air Room Air 09/15/24 09:10 Temperature Pulse Rate 68 Pulse Rate [Left P ulse Oximeter] Respiratory Rate Blood Pressure [Ri ght Upper Arm] Pulse Oximetry 98 Oxygen Delivery Me thod <Winston Phelps DO - Last Filed: 09/15/24 09:49> Documenting provider has reviewed patient's vital signs: yes <Rodrigue Be MD - Last Filed: 09/15/24 07:12> Course Vital Signs Vital signs: Initial Vital Signs Temperature 97.0 F L 09/15/24 06:27 Temperature Source Temporal Artery Scan 09/15/24 06:27 Pulse Rate 71 09/15/24 06:27 Pulse Rhythm Regular 09/15/24 06:27 Respiratory Rate 18 09/15/24 06:27 Blood Pressure 145/100 H 09/15/24 06:27 Blood Pressure Mean 115 H 09/15/24 06:27 Blood Pressure Position Sitting 09/15/24 06:27 Pulse Oximetry 98 09/15/24 06:27 Oxygen Delivery Method Room Air 09/15/24 06:27 Vital Signs Temperature 97.0 F L 09/15/24 06:27 Pulse Rate 71 09/15/24 06:27 Respiratory Rate 18 09/15/24 06:27 Blood Pressure 145/100 H 09/15/24 06:27 Pulse Oximetry 98 09/15/24 06:27 Oxygen Delivery Method Room Air 09/15/24 06:27 Temperature 97.0 F L 09/15/24 06:27 Pulse Rate 68 09/15/24 09:10 Respiratory Rate 18 09/15/24 09:00 Blood Pressure 141/83 H 09/15/24 09:00 Pulse Oximetry 98 09/15/24 09:10 Oxygen Delivery Method Room Air 09/15/24 09:00 <Rodrigue Be MD - Last Filed: 09/15/24 07:12> Initial Vital Signs Temperature 97.0 F L 09/15/24 06:27 Temperature Source Temporal Artery Scan 09/15/24 06:27 Pulse Rate 71 09/15/24 06:27 Pulse Rhythm Regular 09/15/24 06:27 Respiratory Rate 18 09/15/24 06:27 Blood Pressure 145/100 H 09/15/24 06:27 Blood Pressure Mean 115 H 09/15/24 06:27 Blood Pressure Position Sitting 09/15/24 06:27 Pulse Oximetry 98 09/15/24 06:27 Oxygen Delivery Method Room Air 09/15/24 06:27 Vital Signs Temperature 97.0 F L 09/15/24 06:27 Pulse Rate 71 09/15/24 06:27 Respiratory Rate 18 09/15/24 06:27 Blood Pressure 145/100 H 09/15/24 06:27 Pulse Oximetry 98 09/15/24 06:27 Oxygen Delivery Method Room Air 09/15/24 06:27 Temperature 97.0 F L 09/15/24 06:27 Pulse Rate 68 09/15/24 09:10 Respiratory Rate 18 09/15/24 09:00 Blood Pressure 141/83 H 09/15/24 09:00 Pulse Oximetry 98 09/15/24 09:10 Oxygen Delivery Method Room Air 09/15/24 09:00 <Winston Phelps DO - Last Filed: 09/15/24 09:49> Medications Administered Medications: Discontinued Medications Generic Name Dose Route Start Last Admin Trade Name Freq PRN Reason Stop Dose Admin Aspirin 324 mg 09/15/24 06:53 09/15/24 07:08 Aspirin 81 Mg Tab.Chew PO 09/15/24 06:54 324 mg ONCE ONE Administration <Rodrigue Be MD - Last Filed: 09/15/24 07:12> Discontinued Medications Generic Name Dose Route Start Last Admin Trade Name Freq PRN Reason Stop Dose Admin Aspirin 324 mg 09/15/24 06:53 09/15/24 07:08 Aspirin 81 Mg Tab.Chew PO 09/15/24 06:54 324 mg ONCE ONE Administration <Winston Phelps DO - Last Filed: 09/15/24 09:49> MDM - SOB/Dyspnea MDM Narrative Medical decision making narrative: During the evaluation of this patient I considered multiple differential diagnosis is. The life-threatening differential diagnosis include coronary disease/[place], pulmonary embolism, pneumothorax, pneumonia, and aortic dissection. Other differential diagnosis included but were not limited to pericarditis, myocarditis, chest wall pain, GERD, esophageal rupture, rib fracture contusion, pleurisy, as well as other etiologies. Life-threatening differential diagnosis includes occluded COPD exacerbation, pulmonary edema, acute coronary syndromes, pulmonary embolism, pneumonia, and pneumothorax. Other differential diagnosis considerations include asthma, bronchitis as well as other etiologies <Rodrigue Be MD - Last Filed: 09/15/24 07:12> This patient was signed out to me pending CTA results and repeat troponin. Repeat troponin is within normal limits. CTA does show a redemonstration of her small airway disease. No other abnormalities seen. Was reviewed by myself and the radiologist. At this point I cannot say for certain was causing her symptoms but we have been able to rule out any emergent issues. She does have a slightly elevated white blood cell count but with a normal CRP and procalcitonin no other signs of infection this elevation is unlikely due to the infection. Will try a prednisone burst to see if it helps with her symptoms. She is safe for discharge. <Winston Phelps DO - Last Filed: 09/15/24 09:49> Medical Records Attestation: I reviewed the patient's medical records. <Rodrigue Be MD - Last Filed: 09/15/24 07:12> Lab Data Labs: Lab Results 09/15/24 09/15/24 09/15/24 Range/Units 06:45 06:56 08:45 WBC 12.81 H (4.50-11.00) K/uL RBC 4.46 (4.00-5.20) m/uL Hgb 13.5 (12.0-16.0) gm/dL Hct 41.2 (33.0-51.0) % MCV 92 (80-100) fL MCH 30 (26-34) pg MCHC 33 (32-36) gm/dL RDW Coeff of [place] 12.3 (11.5-15.5) % Plt Count 213 (140-440) K/uL Neut % (Auto) 67.7 (42.0-72.0) % Lymph % (Auto) 25.5 (20-44) % [place] % (Auto) 4.8 (0.0-11.0) % Eos % (Auto) 1.6 (0.0-7.0) % Baso % (Auto) 0.2 (0.0-3.0) % Neut # (Auto) 8.70 H (1.7-7.0) K/uL Lymph # (Auto) 3.30 H (0.90-2.90) K/uL [place] # (Auto) 0.60 (0.00-0.90) K/UL Eos # (Auto) 0.20 (0.00-0.50) K/uL Baso # (Auto) 0.00 (0.00-0.30) K/uL Abs Immat Gran (auto) 0.00 (0.00-0.30) K/uL Imm/Tot Granulo (auto) 0.2 % INR 0.80 L (0.91-1.10) APTT 22 L (23-33) Seconds D-Dimer Quant (PE/DVT) 0.54 H (0.00-0.50) ug/ml Sodium 138 (135-149) mmol/L Potassium 4.2 (3.6-5.1) mmol/L Chloride 106 (96-114) mmol/L Carbon Dioxide 27 (20-32) mmol/L Anion Gap 5 L (7-15) mEq/L BUN 21 (5-24) mg/dL Creatinine 0.6 (0.5-1.5) mg/dL Estimated Creat Clear 115.67 Estimated GFR 111 ml/min Glucose 101 (60-115) mg/dL Calcium 9.3 (8.4-10.6) mg/dL C-Reactive Protein < 0.5 L (0.5-1.0) mg/dL NT-Pro-B Natriuret Pep 65 pg/mL Procalcitonin 0.04 (<0.50) ng/mL SARS-CoV-2 (PCR) Negative SARS-CoV-2 (Negative) Influenza Type A (PCR) Negative PCR FLU A (Negative) Influenza Type B (PCR) Negative PCR FLU B (Negative) RSV (PCR) Negative PCR RSV (Negative) POC Troponin I 0.00 L 0.00 L (0.01-0.04) ng/ml <Rodrigue Be MD - Last Filed: 09/15/24 07:12> Lab Results 09/15/24 09/15/24 09/15/24 Range/Units 06:45 06:56 08:45 WBC 12.81 H (4.50-11.00) K/uL RBC 4.46 (4.00-5.20) m/uL Hgb 13.5 (12.0-16.0) gm/dL Hct 41.2 (33.0-51.0) % MCV 92 (80-100) fL MCH 30 (26-34) pg MCHC 33 (32-36) gm/dL RDW Coeff of [place] 12.3 (11.5-15.5) % Plt Count 213 (140-440) K/uL Neut % (Auto) 67.7 (42.0-72.0) % Lymph % (Auto) 25.5 (20-44) % [place] % (Auto) 4.8 (0.0-11.0) % Eos % (Auto) 1.6 (0.0-7.0) % Baso % (Auto) 0.2 (0.0-3.0) % Neut # (Auto) 8.70 H (1.7-7.0) K/uL Lymph # (Auto) 3.30 H (0.90-2.90) K/uL [place] # (Auto) 0.60 (0.00-0.90) K/UL Eos # (Auto) 0.20 (0.00-0.50) K/uL Baso # (Auto) 0.00 (0.00-0.30) K/uL Abs Immat Gran (auto) 0.00 (0.00-0.30) K/uL Imm/Tot Granulo (auto) 0.2 % INR 0.80 L (0.91-1.10) APTT 22 L (23-33) Seconds D-Dimer Quant (PE/DVT) 0.54 H (0.00-0.50) ug/ml Sodium 138 (135-149) mmol/L Potassium 4.2 (3.6-5.1) mmol/L Chloride 106 (96-114) mmol/L Carbon Dioxide 27 (20-32) mmol/L Anion Gap 5 L (7-15) mEq/L BUN 21 (5-24) mg/dL Creatinine 0.6 (0.5-1.5) mg/dL Estimated Creat Clear 115.67 Estimated GFR 111 ml/min Glucose 101 (60-115) mg/dL Calcium 9.3 (8.4-10.6) mg/dL C-Reactive Protein < 0.5 L (0.5-1.0) mg/dL NT-Pro-B Natriuret Pep 65 pg/mL Procalcitonin 0.04 (<0.50) ng/mL SARS-CoV-2 (PCR) Negative SARS-CoV-2 (Negative) Influenza Type A (PCR) Negative PCR FLU A (Negative) Influenza Type B (PCR) Negative PCR FLU B (Negative) RSV (PCR) Negative PCR RSV (Negative) POC Troponin I 0.00 L 0.00 L (0.01-0.04) ng/ml <Winston Phelps DO - Last Filed: 09/15/24 09:49> Imaging Data Chest x-ray: Attestation: I have reviewed the pertinent imaging results. <Rodrigue Be MD - Last Filed: 09/15/24 07:12> My impression: Chest x-ray two view by my review shows no acute changes in comparison to old chest x-rays <Rodrigue Be MD - Last Filed: 09/15/24 07:12> CTA chest: Attestation: I have reviewed the pertinent imaging results. <Winston Phelps DO - Last Filed: 09/15/24 09:49> Radiologist's impression: 1. No acute pulmonary embolism. 2. Redemonstrated mosaic attenuation in the lungs, which often reflects small airways disease. The lungs are otherwise clear without a definite new infiltrate. Please note that all CT scans at this facility use dose modulation, iterative reconstruction, and/or weight-based dosing when appropriate to reduce radiation dose to as low as reasonably achievable. Dictated by Art Piña MD @ 09/15/2024 9:25:30 AM <Winston Phelps DO - Last Filed: 09/15/24 09:49> ECG Data Attestation: I personally reviewed and interpreted this ECG as follows: <Rodrigue Be MD - Last Filed: 09/15/24 07:12> ECG interpretation date: 09/15/24 <Rodrigue Be MD - Last Filed: 09/15/24 07:12> Prior ECG tracings: available for review <Rodrigue Be MD - Last Filed: 09/15/24 07:12> Interpretation: EKG shows normal sinus rhythm with a ventricular rate of 70. There is some nonspecific ST wave changes of flattening noted throughout the precordium, and flattened a reverse T-waves noted inferiorly. QRS is 82 jh sec, QT is 380, QTC is 410 Assessment: Abnormal EKG, normal sinus rhythm, ST wave changes unchanged from previous EKG <Rodrigue Be MD - Last Filed: 09/15/24 07:12> Discharge Plan Discharge Clinical Impression: Shortness of breath Chest pain Qualifiers: Chest pain type: unspecified Qualified Code(s): R07.9 - Chest pain, unspecified <Rodrigue Be MD - Last Filed: 09/15/24 07:12> Patient Disposition: Home, Self-Care <Rodrigue Be MD - Last Filed: 09/15/24 07:12> Condition: Stable <Rodrigue Be MD - Last Filed: 09/15/24 07:12> Instructions: Noncardiac Chest Pain (ED) <Rodrigue Be MD - Last Filed: 09/15/24 07:12> Additional Instructions: I do not know what exactly is causing her symptoms but we were able to rule out any emergent issues with your lab work and imaging. If symptoms persis t I recommend following up with her primary care provider. Return to emergency department for new or worsening symptoms. <Rodrigue Be MD - Last Filed: 09/15/24 07:12> Prescriptions: New prednisone 20 mg tablet 40 mg PO DAILY Qty: 10 0RF No Action cetirizine [Zyrtec] 10 mg tablet 10 mg PO DAILY albuterol sulfate 90 mcg/actuation HFA aerosol inhaler 2 puff inhalation Q6H PRN magnesium 250 mg tablet 250 mg PO HS fluticasone furoate-vilanterol [Breo Ellipta] 200-25 mcg/dose blister with device 1 inh INHALATION DAILY ketorolac 10 mg tablet 10 mg PO Q6H PRN (Reason: pain) 5 Days Qty: 20 0RF trazodone 100 mg tablet 100 mg PO HS lorazepam 1 mg tablet 0.5 - 1 mg PO DAILY PRN (Reason: dizziness) levetiracetam [Keppra] 750 mg tablet 375 mg PO BID aspirin 81 mg Tablet,Delayed Release (Dr/Ec) 81 mg PO DAILY Qty: 30 0RF <Rodrigue Be MD - Last Filed: 09/15/24 07:12> Follow Up/Referrals: EFRAÍN MAYA RA, PICKLE WATER PUMP OPERATOR, TOOL POLISHING MACHINE OPERATOR [Primary Care Provider] - <Rodrigue Be MD - Last Filed: 09/15/24 07:12> Stand Alone Forms: [employer] Info Instructions <Rodrigue Be MD - Last Filed: 09/15/24 07:12>
[2024-09-15] MEDS: ASPIRIN 81 MG TAB.CHEW 324 MG PO (07:08)
[2024-09-15 07:19] LABS: Chloride* 106 mmol/L (96-114); Potassium* 4.2 mmol/L (3.6-5.1); Sodium* 138 mmol/L (135-149)
[2024-09-15 07:20] LABS: Basophils Percent Auto 0.2 % (0.0-3.0); Eosinophils Percent Auto 1.6 % (0.0-7.0); Hematocrit 41.2 % (33.0-51.0); Hemoglobin* 13.5 gm/dL (12.0-16.0); Immature Granulocytes Pct Auto 0.2 %; Lymphocytes Percent Auto 25.5 % (20-44); Mean Corpuscular HGB Conc 33 gm/dL (32-36); Mean Corpuscular Hemoglobin 30 pg (26-34); Mean Corpuscular Volume 92 fL (80-100); Monocytes Percent Auto 4.8 % (0.0-11.0); Neutrophils Percent Auto 67.7 % (42.0-72.0); Platelet Count* 213 K/uL (140-440); RDW Coefficient of Variation % 12.3 % (11.5-15.5); Red Blood Count 4.46 m/uL (4.00-5.20); White Blood Count* 12.81 K/uL (4.50-11.00)
[2024-09-15 07:21] LABS: Slide Review Reflex No
[2024-09-15 07:22] LABS: Anion Gap 5 mEq/L (7-15); Blood Urea Nitrogen* 21 mg/dL (5-24); Carbon Dioxide* 27 mmol/L (20-32); Creatinine* 0.6 mg/dL (0.5-1.5); Est. Creatinine Clearance* 115.67; Estimated Glomerular Filt Rate 111 ml/min
[2024-09-15 07:23] LABS: Calcium* 9.3 mg/dL (8.4-10.6); Glucose* 101 mg/dL (60-115)
[2024-09-15 07:27] LABS: Prothrombin Time 11.6 Seconds
[2024-09-15 07:28] LABS: Partial Thromboplastin Time* 22 Seconds (23-33)
[2024-09-15 07:30] LABS: D Dimer Quantitative* 0.54 ug/ml (0.00-0.50)
[2024-09-15 07:44] LABS: Procalcitonin* 0.04 ng/mL (<0.50)
[2024-09-15 07:46] LABS: NT Pro B Type NatriureticPept* 65 pg/mL
[2024-09-15 07:49] LABS: PCR FLU A Negative PCR FLU A (Negative); PCR FLU B Negative PCR FLU B (Negative); PCR RSV Negative PCR RSV (Negative); SARS PCR* Negative SARS-CoV-2 (Negative)
--- NOTE | 2024-09-15 08:00 | CRLHL7_ITS ---
For Patients: As a result of the Century Cures Act, medical imaging exams and procedure reports are released immediately into your electronic medical record. You may view this report before your referring provider. If you have questions, please contact your health care provider. INDICATION: SOB, CP, ELEVATED D DIMER, FEVER. TECHNIQUE: CT chest PE was acquired with 95 cc Isovue 370 IV contrast. COMPARISON: CT chest dated 09/29/2022. FINDINGS: Heart and vasculature: Contrast opacification of the pulmonary arterial tree is adequate. No sign of pulmonary embolism. Heart size is normal. Redemonstrated postsurgical changes along the atrial septum. Thoracic aorta and pulmonary artery are normal in caliber. Lungs and pleura: Redemonstrated mosaic attenuation which is similar to prior allowing differences in lung volumes, with mild scattered cystic change. No suspicious nodules or infiltrates. No pleural effusions, pleural thickening, or pneumothorax. Lymph nodes/mediastinum: No mediastinal, hilar, or axillary adenopathy. Chest wall: No masses. Redemonstrated stigmata of pectus excavatum. Upper abdomen: No acute or significant findings. Bones: Unremarkable for age. IMPRESSION: 1. No acute pulmonary embolism. 2. Redemonstrated mosaic attenuation in the lungs, which often reflects small airways disease. The lungs are otherwise clear without a definite new infiltrate. Please note that all CT scans at this facility use dose modulation, iterative reconstruction, and/or weight-based dosing when appropriate to reduce radiation dose to as low as reasonably achievable. Dictated by Art Piña MD @ 09/15/2024 9:25:30 AM (Electronically Signed)
[2024-09-15 08:23] LABS: C Reactive Protein* < 0.5 mg/dL (0.5-1.0)
== END 2024-09-15 10:10 | disposition home or self-care (01) ==
PROVIDERS: Student in an Organized Health Care Education/Training Program; Emergency Provider Family Medicine; PCP Nurse Practitioner
DX: R06.02 Shortness of breath (principal); T36.4X5A Adverse effect of tetracyclines, initial encounter
CPT/HCPCS: 36415; 71046; 71275; 80048; 83880; 84145; 84484; 85025; 85379; 85610; 85730; 86140; 87631; 93005; 94761; 99284; 99285; A9270; Q9967

== ENCOUNTER 2024-09-20 18:02 | Emergency (ER) | payer OTHER, MEDICAID, SELFPAY ==
[2024-09-20 18:05] VITALS: BP 153/87; PULSE 78; RESP 16; TEMP 35.8; O2SAT 96; BMI 31.3
--- OUTSIDE RECORDS SUMMARY | 2024-09-20 18:05 | XMS_ITS | Clinical Summary ---
Author Organization [facility] Address [address] [place] [address] Care Team Providers Care Otolaryngology Physician Name Role Phone Winston Villatoro OD Unavailable Denise Woodson APRN LEAD TELLER Unavailable Denise Woodson APRN [facility] Primary Care Provider Usha Simon APRN [facility] Unavailable [phone] Dangelo Salinas MD Unavailable Anastasia Stearns RN Unavailable Germaine Lopez [facility] Unavailable [phone] Joya Lira [facility] Unavailable Joya Lira [facility] Unavailable [phone] Fabi Coates MD Unavailable [phone] Danna CardenasC Unavailable SinyiArthur garcia [employer]ING [employer] LEADER Unavailable Randy Maradiaga DO Unavailable + Allergies Active Allergy Reactions Criticality Noted [...] HFA/PROVENTIL HFA/VENTOLIN HFA) 108 (90 Base) MCG/ACT inhalerIndicati ons:Moderate persistent asthma without complication Inhale 2 puffs into the lungs every 4 hours as needed for shortness of breath / dyspnea or wheezing 1 Inhaler 3 Active cetirizine (ZYRTEC) 10 MG tablet Take 10 mg by mouth at bedtime. Active psyllium (METAMUCIL) 28.3 % packet Take 1 packet by mouth daily Active senna-docusate (SENOKOT-S/HEATHER COLACE) 8.6-50 MG tabletIndicatio ns:Other constipation Take 2 tablets by mouth 2 times daily as needed for constipation Active Additional Information Patient taking differently: 1 tabletOralDAILY, Reported on 09/18/2024 methyl salicylate-ment hol (ICY HOT) ointmentIndicat ions:Fibromyalg ia,Pain of right upper extremity Apply topically every 6 hours as needed (pain) Active acetaminophen (TYLENOL) 500 MG tabletIndicatio ns:Fibromyalgia ,Pain of right upper extremity Take 1-2 tablets (500-1,000 mg) by mouth 3 times daily as needed for mild pain or headaches Active MAGNESIUM PO Take 1 tablet by mouth at bedtime. Active aspirin 81 MG EC tabletIndicatio ns:Cerebrovascu lar accident (CVA), unspecified mechanism (H) Take 2 tablets (162 mg) by mouth daily. Active Additional Information Patient taking differently: 3 tabletOral DAILY, Reported on 09/18/2024 oxyCODONE (ROXICODONE) 5 MG tabletIndicatio ns:Cerebrovascu lar accident (CVA), unspecified mechanism (H) Take 0.5 tablets (2.5 mg) by mouth every 4 hours as needed for moderate to severe pain. 10 tablet 024 Active Lidocaine (LIDOCARE) 4 % PatchIndication s:Pain of right upper extremity,Fibro myalgia Place 1 patch onto the skin daily as needed. To prevent lidocaine toxicity, patient should be patch free for 12 hrs daily. Active traZODone (DESYREL) 100 MG tablet Take 100 mg by mouth at bedtime. Active fluticasone-brigitte anterol (BREO ELLIPTA) 200-25 MCG/ACT inhalerIndicati ons:Moderate persistent asthma without complication Inhale 1 puff into the lungs daily. 3 each 1 024 Active levETIRAcetam (KEPPRA) 750 MG tabletIndicatio ns:History of seizure Take 1/2 of 750 mg tab BID 120 tablet 2 024 Active LORazepam (ATIVAN) 1 MG tabletIndicatio ns:History of seizure Take 1/2-1 tablet daily as needed for onset of dizziness. 10 tablet 024 Active citalopram (CELEXA) 10 MG tabletIndicatio ns:Anxiety Take 0.5 tablets (5 mg) by mouth daily. 45 tablet 1 024 Active albuterol (PROAIR HFA/PROVENTIL HFA/VENTOLIN HFA) 108 (90 Base) MCG/ACT inhaler Inhale 1-2 puffs into the lungs every 6 hours as needed for shortness of breath, wheezing or cough. 18 g Active doxycycline monohydrate (MONODOX) 100 MG capsuleIndicati ons:Acute cough Take 1 capsule (100 mg) by mouth 2 times daily for 10 days. 20 capsule 025 2024 Active predniSONE (DELTASONE) 20 MG tabletIndicatio ns:Acute cough Take 3 tabs by mouth daily x 3 days, then 2 tabs daily x 3 days, then 1 tab daily x 3 days, then 1/2 tab daily x 3 days. 20 tablet 025 Active atorvastatin (LIPITOR) 10 MG tabletIndicatio ns:Cerebrovascu lar accident (CVA), unspecified mechanism (H) Take 1 tablet (10 mg) by mouth daily. 30 tablet 024 2023 Discontinued citalopram (CELEXA) 10 MG tabletIndicatio ns:Anxiety Take 0.5 tablets (5 mg) by mouth daily. 45 tablet 024 2023 Discontinued(R eorder (No AVS)) rosuvastatin (CRESTOR) 10 MG tabletIndicatio ns:Cerebrovascu lar accident (CVA), unspecified mechanism (H) TAKE 1 TABLET (10 MG) BY MOUTH AT BEDTIME 90 tablet 1 024 2023 Discontinued Active Problems Problem Noted Date Diagnosed Date Severe episode of recurrent major depressive disorder, without psychotic features 08/04/2024 Right sided numbness 07/13/2024 Tachycardia 07/07/2024 Hemiparesis [...] Encounters Date Type Department Care Team Description 09/18/2024 1:00 PM CARDIOTHORACIC PHYSIOTHERAPIST Office Visit [facility] [address] [place] [phone] Denise Woodson APRN CNP Chronic obstructive pulmonary disease without exacerbation (H) (Primary Dx); Acute cough; BPD (bronchopulmonary dysplasia) (H) 09/18/2024 Telephone [facility] [address] [place] [phone] Denise Woodson APRN CNP Erroneous encounter-disregard 09/18/2024 Travel 09/16/2024 Travel 09/14/2024 MyC Medical Advice [facility] [address] [place] [phone] Denise Woodson APRN CNP 09/13/2024 10:54 AM CARDIOTHORACIC PHYSIOTHERAPIST - 09/13/2024 4:42 PM CARDIOTHORACIC PHYSIOTHERAPIST Emergency [facility] Emergency Dept [address] [place] [phone] Sameer Castillo, COPD with acute exacerbation (H); Upper respiratory tract infection, unspecified type Discharge Disposition: Home or Self Care 09/13/2024 Travel 09/11/2024 8:00 AM CARDIOTHORACIC PHYSIOTHERAPIST Ancillary Procedure [facility] [address] [facility] [address] [place] [phone] Randy Maradiaga, Seizure-like activity (H); History of seizure 09/11/2024 Travel 2024 Travel 09/04/2024 11:00 AM CARDIOTHORACIC PHYSIOTHERAPIST [facility] [address] [place] [phone] Denise Woodson APRN CNP Anxiety (Primary Dx); History of stroke 09/04/2024 MyC Medical Advice [facility] [address] [place] [phone] Qing Copeland 09/04/2024 Travel 09/03/2024 Travel 09/02/2024 [facility]ill [facility] [address] [place] [phone] Chintan Denise WINDOW [employer] DOOR INSTALLER LEAD TELLER Medication Refill 08/17/2024 12:30 PM CARDIOTHORACIC PHYSIOTHERAPIST Office Visit [facility] [place] [address] [place] [phone] Robin Zepeda MD Waldron, Eric John, PhD LP 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); Cerebrovascular dural AV fistula; Cerebral infarction, unspecified mechanism (H) 08/17/2024 Abstract [facility] [place] [address] [place] [phone] Tulio Ogden, PhD LP 08/17/2024 Travel 08/14/2024 Travel 08/14/2024 MyC Medical Advice [facility] [address] [phone] Randy Maradiaga, 08/11/2024 MyC Medical Advice [facility] [address] [place] [address] Sinyigaya, Speciose, SEMICONDUCTOR PROCESSING GROUP LEADER 08/10/2024 3:00 PM CARDIOTHORACIC PHYSIOTHERAPIST Virtual Visit [facility] [address] [place] [address] Sinyigaya, Speciose, SEMICONDUCTOR PROCESSING GROUP LEADER MONAE (generalized anxiety disorder) (Primary Dx); MDD (major depressive disorder), recurrent episode, moderate (H) 08/10/2024 12:30 PM CARDIOTHORACIC PHYSIOTHERAPIST Virtual Visit [facility] [address] [phone] Robin Zepeda MD 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); Dural arteriovenous fistula; Cerebrovascular accident (CVA), unspecified mechanism (H) 08/07/2024 1:00 PM CARDIOTHORACIC PHYSIOTHERAPIST - 08/07/2024 11:59 PM CARDIOTHORACIC PHYSIOTHERAPIST Hospital Encounter [facility] [address] [place] [address] Danna Cardenas PA-C Chest pain, unspecified type Discharge Disposition: Home or Self Care 08/07/2024 Travel 08/06/2024 [facility]C Medical [facility] [address] [place] [phone] Denise Woodson APRN CNP 08/04/2024 3:30 PM CARDIOTHORACIC PHYSIOTHERAPIST Virtual Visit [facility] [address] [place] [phone] Denise Woodson APRN LEAD TELLER Chronic obstructive pulmonary disease without exacerbation (H) (Primary Dx); Anxiety; History of seizure; Severe episode of recurrent major depressive disorder, without psychotic features (H); Cerebrovascular accident (CVA), unspecified mechanism (H) 08/04/2024 12:00 PM CARDIOTHORACIC PHYSIOTHERAPIST Virtual Visit [facility] [address] [place] [address] Arthur Salas, SEMICONDUCTOR PROCESSING GROUP LEADER MONAE (generalized anxiety disorder) (Primary Dx); MDD (major depressive disorder), recurrent episode, moderate (H) 08/04/2024 Travel 08/01/2024 MyC Medical Advice [facility] [address] [phone] Randy Maradiaga DO 07/30/2024 8:30 AM CARDIOTHORACIC PHYSIOTHERAPIST Virtual Visit [facility] [address] [phone] Randy Maradiaga DO Seizure-like activity (H); History of seizure 07/29/2024 MyC Medical Advice [facility] [address] [place] [phone] Denise Woodson APRN LEAD TELLER Forms (Patient/[employer] - R... 07/22/2024 11:15 AM CARDIOTHORACIC PHYSIOTHERAPIST Lab [facility] [address] [place] [phone] Screening for HIV (human immunodeficiency virus) (Primary Dx); Need for hepatitis C screening test; Cerebrovascular accident (CVA), unspecified mechanism (H); Muscle weakness (generalized) 07/22/2024 Travel 07/20/2024 12:00 PM CARDIOTHORACIC PHYSIOTHERAPIST Virtual Visit [facility] [address] [place] [phone] Denise Woodson APRN LEAD TELLER History of seizure (Primary Dx); Cerebrovascular accident (CVA), unspecified mechanism (H); Muscle weakness (generalized); Thyroid antibody positive 07/18/2024 MyC Medical Advice [facility] [address] [place] [address] Denise Woodson APRN LEAD TELLER 07/16/2024 11:00 AM CDT Virtual Visit [facility] Addiction [address] [place] [phone] Sinyigaya, Speciose, SEMICONDUCTOR PROCESSING GROUP LEADER MONAE (generalized anxiety disorder) (Primary Dx); Anxiety; MDD (major depressive disorder), recurrent episode, moderate (H) 07/16/2024 Telephone [facility] [place] [address] [place] [phone] Telma Guajardo RN 07/16/2024 MyC Medical Advice [facility] [address] [place] [phone] Sinyigaya, Speciose, SEMICONDUCTOR PROCESSING GROUP LEADER 07/16/2024 FCC Extended Documentation [facility] [address] [place] [phone] Sinyigaya, Speciose, SEMICONDUCTOR PROCESSING GROUP LEADER 07/15/2024 MyC Medical Advice [facility] [address] [place] [phone] Robin Zepeda MD 07/14/2024 Telephone [facility] [address] [place] [phone] None Appointment (Seizure-like activity (H) R sided numbness/tinglinfg/) 07/12/2024 10:32 PM CDT - 07/13/2024 6:19 PM CDT Emergency [facility] Short Stay [address] [place] [phone] Rocio Ann MD Maresh, Andrew, DO Neshangi, Srivani, MD Anxiety (Primary Dx); Right sided numbness; Cerebrovascular accident (CVA), unspecified mechanism (H); Seizure-like activity (H) Discharge Disposition: Home or Self Care 07/12/2024 Travel 07/12/2024 Telephone [facility] - Neuroscience Service Line [facility] [place] [phone] Sameer Tracy MD 07/07/2024 MyC Medical Advice [facility] [address] [phone] Liliane Cobos 07/07/2024 Telephone [facility] [address] [phone] Randy Maradiaga DO Clinic Care Coordination - Follow-up 07/07/2024 Documentation Only [facility] [address] [phone] Bryan Farley CMA 07/02/2024 7:30 AM CDT Virtual Visit [facility] [address] [phone] Randy Maradiaga DO Trigger point of neck (Primary Dx); History of seizure 07/02/2024 PRE VISIT [facility] [address] [phone] Randy Maradiaga DO *-*INCOMING RECORDS*-* 06/29/2024 Telephone [facility] [address] [phone] Lisa Zambrano MD 06/28/2024 MyC Medical Advice [facility] [address] [place] [address] Denise WoodsonBARRERA LEAD TELLER 06/26/2024 2:40 PM CDT Office Visit [address] [place] [phone] Danna Cardenas PA-C Tachycardia (Primary Dx); Chest pain, unspecified type 06/26/2024 Orders Only (auto-released) [address] [place] [phone] Danna Cardenas PA-C Tachycardia 06/26/2024 Travel 06/23/2024 Travel from Last 3 Months Immunizations Name Administration Dates Next Due COVID-19 Vaccine (Jose Antonio) 11/20/2020 Flu, Unspecified 07/11/2017,07/02/2014 HepB 03/03/2012,11/07/2011,10/04/2011 Hepatitis B, Adult 03/03/2012,11/07/2011, 012 Influenza (IIV3) PF 06/01/2013,07/04/2007 Influenza (prior to 2023) 06/01/2013,06/04/2012 Influenza Vaccine >6 months,quad, PF ,06/23/2021,07/27/2020,2018,08/07/2017,07/11/2017,06/16/2013,1 ,07/17/2006,10/17/2005 Influenza Vaccine IM Ages 6- 35 Months 4 Valent (PF) 07/17/2006 [place] Tuberculin Skin Test 11/07/2011, 11/07/2011,10/08/2011,2011 Pneumococcal [...] family, friends, or neighbors? Once a week 09/16/2024 How often do you get together with friends or re latives? Never 09/16/2024 How often do you attend latter day or mandaeism serv ices? Never 09/16/2024 Do you belong to any clubs o r organizations such as latter day groups, unions, fraternal or athletic groups, or school groups? No 09/16/2024 How often do you attend meet ings of the clubs or organizations you belong to? Never 09/16/2024 Are you , , di vorced, , never , or living with a partner? 09/16/2024 AUDIT-C Answer Date Recorded Q1: How often do you have a drink containing alcohol? Never 02/28/2024 Q2: How many drinks containi ng alcohol do you have on a typical day when you are drinking? Patient does not drink Q3: How often do you have si x or more drinks on one occasion? Never 02/28/2024 PHQ-2 Answer Date Recorded PHQ-2 Score 0 09/18/2024 [facility]ational Stress Questionnaire Answer Date Recorded Do you feel stress - tense, restless, nervous, or anxious, or unable to sleep at night because your mind is troubled all the time - these days? Not at all 09/16/2024 Exercise Vital Sign Answer Date Recorde d On average, how many days pe r week do you engage in moderate to strenuous exercise (like a brisk walk)? 0 days 09/16/2024 On average, how many minutes do you engage in exercise at this level? 0 min 09/16/2024 Adolescent Education Answer Date Record ed Getting School Help Needed Not on file 07/01 Food Insecurity Answer Date Recorded Within the past 12 months, d id you worry that your food would run out before you got money to buy more? No 09/16/2024 Within the past 12 months, d id the food you bought just not last and you didn t have money to get more? No 09/16/2024 Housing Stability Answer Date Recorded Do you have housing? (Valerie winkler is defined as stable permanent housing and does not include staying ouside in a car, in a tent, in an abandoned building, in an overnight senior living, or couch-surfing.) Yes 09/16/2024 Are you worried about losing your housing? No 09/16/2024 Financial Resource Strain Answer Date R ecorded Within the past 12 months, h ave you or your family members you live with been unable to get utilities (heat, electricity) when it was really needed? No 09/16/2024 Transportation Needs Answer Date Record ed Within the past 12 months, h as lack of transportation kept you from medical appointments, getting your medicines, non-medical meetings or appointments, work, or from getting things that you need? 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 Not on file Not on file Not on file Not on file Not on file Not on file Not on file Last Filed Vital Signs Vital Sign Reading Time Taken Comments Blood Pressure 138/88 09/18/2024 12:51 PM CARDIOTHORACIC PHYSIOTHERAPIST Pulse 78 09/18/2024 12:51 PM CARDIOTHORACIC PHYSIOTHERAPIST Temperature 36.8 C (98.3 F) 09/18/2024 12:51 PM CARDIOTHORACIC PHYSIOTHERAPIST Respiratory Rate 12 09/18/2024 12:51 PM CARDIOTHORACIC PHYSIOTHERAPIST Oxygen Saturation 98% 09/18/2024 12:51 PM CARDIOTHORACIC PHYSIOTHERAPIST Inhaled Oxygen Concentration - - Weight 94.8 kg (209 lb) 09/18/2024 12:51 PM CARDIOTHORACIC PHYSIOTHERAPIST Height 172.7 cm (5' 8) 09/18/2024 12:51 PM CARDIOTHORACIC PHYSIOTHERAPIST Body Mass Index 31.78 09/18/2024 12:51 PM CARDIOTHORACIC PHYSIOTHERAPIST Plan of Treatment Upcoming Encounters Date Type Department Care Team (Late st Contact Info) Description 09/25/2024 11:00 AM CARDIOTHORACIC PHYSIOTHERAPIST Office Visit [facility] [address] [place] [phone] Denise Woodson APRN LEAD TELLER [address] [place], [place] [phone] 09/29/2024 9:00 AM CARDIOTHORACIC PHYSIOTHERAPIST Virtual Visit [facility] [address] 3rd [place] [phone] Randy Maradiaga, [address] [address] 10/09/2024 1:20 PM CARDIOTHORACIC PHYSIOTHERAPIST Office Visit [facility] [address] [facility] [address] [place] [phone] Danna Cardenas PA-C [address] [place], [place] [phone] 10/15/2024 11:00 AM CARDIOTHORACIC PHYSIOTHERAPIST Office Visit [facility] [address] [place] [phone] Chintan DeniseBARRERA LEAD TELLER [address] [place] [address] 10/30/2024 4:00 PM CARDIOTHORACIC PHYSIOTHERAPIST Virtual Visit [facility] [place] [address] [place] [phone] Lisa Zambrano MD [address] [place] [address] 12/29/2024 12:45 PM CDT Office Visit [facility] [address] [place] [address] [phone] Fabi Coates MD [address] [place] [phone] 12/29/2024 1:45 PM CDT Office Visit [facility] [address] [place] [phone] Fabi Coates MD [address] [place] [address] 06/01/2025 11:15 AM CDT Appointment [facility] [address] [facility] [address] [place] [phone] Robin Zepeda MD [address] [place] [address] 06/04/2025 11:00 AM CDT Office Visit [facility] Neurosurgery [address] 3rd [place] [phone] Robin Zepeda MD [address] [place] [address] Usha Simon APRN LEAD TELLER [address] [facility] [place] [address] Health Maintenance Due Date Last Done Comments ADVANCE CARE PLANNING [address] COLONOGRAPHY 1976 FIT 1976 FLEX SIG 1976 SPIROMETRY 1976 COLONOSCOPY 1986 Pneumococcal Vaccine: Pediatrics (0 to 5 Years) and At-Risk Patients (6 to 49 Years) (2 of 2 - PCV) 03/16/2005 03/16/2004 YEARLY PREVENTIVE VISIT 01/11/2024 01/11/20, 07/27/2021, 07/27/2020, Additional history exists COVID-19 Vaccine ( season) 2024 07/07/2021, 11/20/2020 INFLUENZA VACCINE (#1) 2024 , 06/23/2021, 07/27/2020, Additional history exists Medicare Annual MTM Pharmacist Visit (once per calendar year) 2024 05/25/2024 PHQ-9 03/18/2025 09/18/2024, 07/17, 07/16/2024, Additional history exists MAMMO SCREENING 07/30/2025 07/30/2023, 07/17, 04/25/2022, Additional history exists ANNUAL REVIEW OF HM ORDERS 09/04/202509/04, 02/06/2024, 01/04/2021 COLORECTAL CANCER SCREENING 10/28/2025 sDNA (Cologuard) 10/28/2025 10/28/2022 GLUCOSE 09/13/2027 09/13/2024, 06/17, 07/13/2024, Additional history exists LIPID 07/13/2029 07/13/2024, 04/18, 07/27/2021, Additional history exists DTAP/TDAP/TD IMMUNIZATION (7 - Td or Tdap) 01/04/2031 01/04/2021, 01/26/2011, 04/05/2003, Additional history exists RSV VACCINE (1 - 1-dose 75+ series) 2051 HEPATITIS B IMMUNIZATION Completed 012, 03/03/2012, 11/07/2011, Additional history exists DEPRESSION ACTION PLAN Completed 01/04/2021, 2020 HEPATITIS C SCREENING Completed 07/22/2024 HIV SCREENING Completed 07/22/2024 HPV IMMUNIZATION Aged Out No longer e [...] admissions Care Plan Increased risk of re-admission 40%( 4 3:02 PM CARDIOTHORACIC PHYSIOTHERAPIST) No Anastasia Stearns, RN Note: Barriers: diagnosis of multiple, chronic, complex medical conditions, provider availability - wait time to complete appointments, etc. Strengths: motivated, engaged in care coordination Patient expressed understanding of goal: yes Action steps to achieve this goal: 1. I will follow up with my providers as scheduled/recommended - Pulmonology: TBD - Mental Health weekly - PT, OT and ELECTROENCEPHALOGRAPHIC TECHNOLOGIST, continuing through [facility] [place]: - PCP: 09/18/2024 & 10/15/2024. - Vascular Dr. Zambrano 10/30/24 - EEG: # - 09/11/24 - Neurology: 09/29/24 - Cardiology: 10/09/24 - Genetic: 12/29/24 - MRI: 06/01/25 - Neurosurgery: 06/04/2025 2. I will take my medications as prescribed. 3. I will discuss, review, schedule and complete recommended overdue health maintenance with my Primary Care Provider. 4. I will contact my care team with questions, concerns, support needs. I will use the clinic as a resource and I understand I can contact my clinic with 24/7 after hours services available. Garbage Man will remain available as needed. Procedures Procedure Name Priority Date/Time Associated Diagnosis Comments CBC WITH PLATELETS & DIFFERENTIAL Routine 09/18/2024 1:23 PM CARDIOTHORACIC PHYSIOTHERAPIST Acute cough CBC WITH PLATELETS AND DIFFERENTIAL Routine 09/18/2024 1:23 PM CARDIOTHORACIC PHYSIOTHERAPIST Acute cough XRAY IMAGING - HIM SCAN 09/15/20 12:[address] CHEST PULMONARY EMBOLISM W CONTRAST STAT 09/13/2024 12:59 PM CARDIOTHORACIC PHYSIOTHERAPIST INFLUENZA A/B, RSV AND SARS-COV2 PCR STAT 09/13/2024 11:49 AM CARDIOTHORACIC PHYSIOTHERAPIST XR CHEST 2 VIEWS STAT 09/13/2024 11:25 AM CARDIOTHORACIC PHYSIOTHERAPIST CBC WITH PLATELETS & DIFFERENTIAL STAT 09/13/2024 11:06 AM CARDIOTHORACIC PHYSIOTHERAPIST D DIMER QUANTITATIVE STAT 09/13/2024 11:06 AM CARDIOTHORACIC PHYSIOTHERAPIST TROPONIN T, HIGH SENSITIVITY Add-On 09/13/2024 11:06 AM CARDIOTHORACIC PHYSIOTHERAPIST EXTRA BLUE TOP TUBE STAT 09/13/2024 11:06 AM CARDIOTHORACIC PHYSIOTHERAPIST CBC WITH PLATELETS AND DIFFERENTIAL STAT 09/13/2024 11:06 AM CARDIOTHORACIC PHYSIOTHERAPIST EXTRA TUBE STAT 09/13/2024 11:06 AM CARDIOTHORACIC PHYSIOTHERAPIST COMPREHENSIVE METABOLIC PANEL STAT 09/13/2024 11:06 AM CARDIOTHORACIC PHYSIOTHERAPIST EKG 12-LEAD, TRACING ONLY STAT 09/13/2024 10:53 AM CARDIOTHORACIC PHYSIOTHERAPIST EEG VIDEO 2-12 HRS CONTINUOUS MONITORING Routine 09/11/2024 11:00 AM CARDIOTHORACIC PHYSIOTHERAPIST Seizure-like activity (H) History of seizure XRAY IMAGING - HIM SCAN 09/08/20 12:00 AM CARDIOTHORACIC PHYSIOTHERAPIST VA PSYCL/NRPSYCL TST TECH 2+ TST EA ADDL 30 MIN Routine 08/19/2024 4:15 PM CARDIOTHORACIC PHYSIOTHERAPIST 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 Cerebral infarction, unspecified mechanism (H) [facility] PS[facility]CL/NRPSYCL TST TECH 2+ TST 1ST 30 MIN Routine 08/19/2024 4:15 PM CARDIOTHORACIC PHYSIOTHERAPIST 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 Cerebral infarction, unspecified mechanism (H) [facility] NEUROPSYCHOLOGICAL TST EVAL PHYS/QHP EA ADDL HR Routine 08/19/2024 4:15 PM CARDIOTHORACIC PHYSIOTHERAPIST 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 Cerebral infarction, unspecified mechanism (H) [facility] NEUROPSYCHOLOGICAL TST EVAL PHYS/QHP 1ST HOUR Routine 08/19/2024 4:15 PM CARDIOTHORACIC PHYSIOTHERAPIST 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 Cerebral infarction, unspecified mechanism (H) CTA ANGIOGRAM CORONARY ARTERY Routine 08/07/2024 4:31 PM CARDIOTHORACIC PHYSIOTHERAPIST Chest pain, unspecified type RADIOLOGIST CONSULT FOR CARDIOLOGY Routine 08/07/2024 4:31 PM CARDIOTHORACIC PHYSIOTHERAPIST Chest pain, unspecified type HEPATITIS C SCREEN REFLEX TO HCV RNA QUANT AND GENOTYPE Routine 07/22/2024 11:17 AM CARDIOTHORACIC PHYSIOTHERAPIST Need for hepatitis C screening test HIV ANTIGEN ANTIBODY COMBO Routine 07/22/2024 11:17 AM CARDIOTHORACIC PHYSIOTHERAPIST Screening for HIV (human immunodeficiency virus) T3 TOTAL Routine 07/22/2024 11:17 AM CARDIOTHORACIC PHYSIOTHERAPIST Cerebrovascular accident (CVA), unspecified mechanism (H) Muscle weakness (generalized) VITAMIN D DEFICIENCY SCREENING Routine 07/22/2024 11:17 AM CARDIOTHORACIC PHYSIOTHERAPIST Cerebrovascular accident (CVA), unspecified mechanism (H) Muscle weakness (generalized) VITAMIN B12 Routine 07/22/2024 11:17 AM CARDIOTHORACIC PHYSIOTHERAPIST Cerebrovascular accident (CVA), unspecified mechanism (H) Muscle weakness (generalized) T4 FREE Routine 07/22/2024 11:17 AM CARDIOTHORACIC PHYSIOTHERAPIST Cerebrovascular accident (CVA), unspecified mechanism (H) Muscle weakness (generalized) THYROID PEROXIDASE ANTIBODY Routine 07/22/2024 11:17 AM CARDIOTHORACIC PHYSIOTHERAPIST Cerebrovascular accident (CVA), unspecified mechanism (H) Muscle weakness (generalized) TSH Routine 07/22/2024 11:17 AM CARDIOTHORACIC PHYSIOTHERAPIST Cerebrovascular accident (CVA), unspecified mechanism (H) Muscle weakness (generalized) ZIO PATCH MAIL OUT Routine 07/16/2024 11:43 AM CDT Tachycardia ECHO COMPLETE WITH CONTRAST [...] CDT TSH WITH FREE T4 REFLEX Add-On 07/12/20 11:28 PM CDT KEPPRA (LEVETIRACETAM) LEVEL STAT 07/12/2024 11:28 PM CDT LAB RESULT - HIM SCAN 07/12/2024 12:[address] IMAGING - HIM SCAN 07/12/2024 12:[address] VASCULAR - HIM SCAN 10/27/202 4 12:00 AM CDT EKG 12-LEAD COMPLETE W/READ - CLINICS Routine 06/26/2024 Chest pain, unspecified type MA SCREENING BILATERAL W/ MAT Routine 04/25/2022 5:03 PM CDT Visit for screening mammogram from Last 3 Months or Most Recently Relevant to Health Maintenance Results * (ABNORMAL) CBC with platelets and differential (09/18/2024 1:23 PM CARDIOTHORACIC PHYSIOTHERAPIST) Only the most recent of3 resultswithin the time period is included. WBC Count 13.5(H) 4.0 - 11.0 10e3/uL 09/18/2024 1:38 PM CARDIOTHORACIC PHYSIOTHERAPIST RM LABORATORY RBC Count 4.81 3.80 - 5.20 10e6/uL 09/18/2024 1:38 PM CARDIOTHORACIC PHYSIOTHERAPIST RM LABORATORY Hemoglobin 14.6 11.7 - 15.7 g/dL 09/18/2024 1:38 PM CARDIOTHORACIC PHYSIOTHERAPIST RM LABORATORY Hematocrit 43.6 35.0 - 47.0 % 09/18/2024 1:38 PM CARDIOTHORACIC PHYSIOTHERAPIST RM LABORATORY MCV 91 78 - 100 fL 09/18/2024 1:38 PM CARDIOTHORACIC PHYSIOTHERAPIST RM LABORATORY MCH 30.4 26.5 - 33.0 pg 09/18/2024 1:38 PM CARDIOTHORACIC PHYSIOTHERAPIST RM LABORATORY MCHC 33.5 31.5 - 36.5 g/dL 09/18/2024 1:38 PM CARDIOTHORACIC PHYSIOTHERAPIST RM LABORATORY RDW 12.4 10.0 - 15.0 % 09/18/2024 1:38 PM CARDIOTHORACIC PHYSIOTHERAPIST RM LABORATORY Platelet Count 279 150 - 450 10e3/uL 09/18/2024 1:38 PM CARDIOTHORACIC PHYSIOTHERAPIST RM LABORATORY % Neutrophils 86 % 09/18/2024 1:38 PM CARDIOTHORACIC PHYSIOTHERAPIST RM LABORATORY % Lymphocytes 11 % 09/18/2024 1:38 PM CARDIOTHORACIC PHYSIOTHERAPIST RM LABORATORY % Monocytes 3 % 09/18/2024 1:38 PM CARDIOTHORACIC PHYSIOTHERAPIST RM LABORATORY % Eosinophils 0 % 09/18/2024 1:38 PM CARDIOTHORACIC PHYSIOTHERAPIST RM LABORATORY % Basophils 0 % 09/18/2024 1:38 PM CARDIOTHORACIC PHYSIOTHERAPIST RM LABORATORY % Immature Granulocytes 0 % 09/18/2024 1:38 PM CARDIOTHORACIC PHYSIOTHERAPIST RM LABORATORY Absolute Neutrophils 11.5(H) 1.6 - 8.3 10e3/uL 09/18/2024 1:38 PM CARDIOTHORACIC PHYSIOTHERAPIST RM LABORATORY Absolute Lymphocytes 1.4 0.8 - 5.3 10e3/uL 09/18/2024 1:38 PM CARDIOTHORACIC PHYSIOTHERAPIST LABORATORY Absolute Monocytes 0.4 0.0 - 1.3 10e3/uL 09/18/2024 1:38 PM CARDIOTHORACIC PHYSIOTHERAPIST LABORATORY Absolute Eosinophils 0.1 0.0 - 0.7 10e3/uL 09/18/2024 1:38 PM CARDIOTHORACIC PHYSIOTHERAPIST LABORATORY Absolute Basophils 0.0 0.0 - 0.2 10e3/uL 09/18/2024 1:38 PM CARDIOTHORACIC PHYSIOTHERAPIST LABORATORY Absolute Immature Granulocytes 0.1 <=0.4 10e3/uL 09/18/2024 1:38 PM CARDIOTHORACIC PHYSIOTHERAPIST LABORATORY Blood BLOOD SPECIMEN / Unknown Venipuncture / Unknown 09/18/2024 1:23 PM CARDIOTHORACIC PHYSIOTHERAPIST 09/18/2024 1:31 PM CARDIOTHORACIC PHYSIOTHERAPIST us Denise Woodson APRN LEAD TELLER LAB - BLOOD ORDERABLES Final Result LABORATORY [facility] [place] [facility] [address] [facility] (no room number, 1st floor of clinic) [place] [address], [facility] * Xray Imaging - HIM Scan (09/15/2024 12:00 AM CARDIOTHORACIC PHYSIOTHERAPIST) Only the most recent of2 resultswithin the time period is included. Anatomical Region Laterality Modality Other 09/15/2024 us Provider Outside IMG DIAGNOSTIC IMAGING ORDERABL ES Final Result * CT Chest Pulmonary Embolism w Contrast (09/13/2024 12:59 PM CARDIOTHORACIC PHYSIOTHERAPIST) Anatomical Region Laterality Modality Chest, SUBRAD CT BODY, UMP CT CHEST Computed Tomography 09/13/2024 12:5 9 PM CARDIOTHORACIC PHYSIOTHERAPIST Impressions 09/13/2024 2:23 PM CARDIOTHORACIC PHYSIOTHERAPIST IMPRESSION: 1. No pulmonary artery embolism. 2. Mild emphysema and mild bronchiolitis with bronchial wall thickening and pulmonary air trapping. No pneumonic infiltrate or pleural effusion. Narrative 09/13/2024 2:23 PM CARDIOTHORACIC PHYSIOTHERAPIST EXAM: CT CHEST PULMONARY EMBOLISM W CONTRAST LOCATION: [facility] DATE: 09/13/2024 INDICATION: Chest pain and shortness of breath, reports recent aspiration event, elevated dimer, evaluate for PE or infectious etiology COMPARISON: CT 08/07/2024 and 03/18/2024 TECHNIQUE: CT chest pulmonary angiogram during arterial phase injection of IV contrast. Multiplanar reformats and MIP reconstructions were performed. Dose reduction techniques were used. CONTRAST: 75mL Isovue 370 FINDINGS: ANGIOGRAM CHEST: Pulmonary arteries are normal caliber and negative for pulmonary emboli. Thoracic aorta is negative for dissection. No CT evidence of right heart strain. LUNGS AND PLEURA: The central airways are clear. Biapical scarring. Mosaic lung attenuation. Mild emphysema. Mild bronchial wall thickening. No focal pneumonic consolidation or pleural effusion. MEDIASTINUM/AXILLAE: No thoracic adenopathy. Upper normal heart size. Atrial septal defect closure device. No pericardial effusion. Small hiatal hernia. CORONARY ARTERY CALCIFICATION: None. UPPER ABDOMEN: Cholecystectomy. MUSCULOSKELETAL: Stable T11 vertebral body osseous hemangioma. Procedure Note Dionicio Ennis MD - 09/13/2024 EXAM: CT CHEST PULMONARY EMBOLISM W CONTRAST LOCATION: [facility] DATE: 09/13/2024 INDICATION: Chest pain and shortness of breath, reports recent aspirationevent, elevated dimer, evaluate for PE or infectious etiology COMPARISON: CT 08/07/2024 and 03/18/2024 TECHNIQUE: CT chest pulmonary angiogram during arterial phase injection ofIV contrast. Multiplanar reformats and MIP reconstructions were performed.Dose reduction techniques were used. CONTRAST: 75mL Isovue 370 FINDINGS: ANGIOGRAM CHEST: Pulmonary arteries are normal caliber and negative forpulmonary emboli. Thoracic aorta is negative for dissection. No CTevidence of right heart strain. LUNGS AND PLEURA: The central airways are clear. Biapical scarring. Mosaiclung attenuation. Mild emphysema. Mild bronchial wall thickening. No focalpneumonic consolidation or pleural effusion. MEDIASTINUM/AXILLAE: No thoracic adenopathy. Upper normal heart size.Atrial septal defect closure device. No pericardial effusion. Small hiatalhernia. CORONARY ARTERY CALCIFICATION: None. UPPER ABDOMEN: Cholecystectomy. MUSCULOSKELETAL: Stable T11 vertebral body osseous hemangioma. IMPRESSION: 1. No pulmonary artery embolism. 2. Mild emphysema and mild bronchiolitis with bronchial wall thickeningand pulmonary air trapping. No pneumonic infiltrate or pleural effusion. Sameer Castillo DO IMG CT ORDERABLES Final Result * Influenza A/B, RSV and SARS-CoV2 PCR (COVID-19) Nasopharyngeal (09/13/2024 11:49 AM CARDIOTHORACIC PHYSIOTHERAPIST) Influenza A PCR Negative Negative 09/13/2024 12:31 PM CARDIOTHORACIC PHYSIOTHERAPIST LABORATORY Influenza B PCR Negative Negative 09/13/2024 12:31 PM CARDIOTHORACIC PHYSIOTHERAPIST LABORATORY RSV PCR Negative Negative 09/13/2024 12:31 PM CARDIOTHORACIC PHYSIOTHERAPIST LABORATORY SARS CoV2 PCR Negative Negative 09/13/2024 12:31 PM CARDIOTHORACIC PHYSIOTHERAPIST LABORATORY Comment:NEGATIVE: SARS-CoV-2 (COVID-19) RNA not detected, presumed negative. Swab NASOPHARYNGEAL STRUCTURE / Unknown Non-blood Collection / Unknown 09/13/2024 11:49 AM CARDIOTHORACIC PHYSIOTHERAPIST 09/13/2024 11:52 AM CARDIOTHORACIC PHYSIOTHERAPIST Narrative LABORATORY - 09/13/2024 12:31 PM CARDIOTHORACIC PHYSIOTHERAPIST Testing was performed using the Xpert Xpress CoV2/Flu/RSV Assay on the [employer] GeneXpert Instrument. This test should be ordered for the detection of SARS- CoV2, influenza, and RSV viruses in individuals with signs and symptoms of respiratory tract infection. This test is for in vitro diagnostic use under the [place] FDA for laboratories certified under CLIA to perform high or moderate complexity testing. This test has been [place] FDA cleared. A negative result does not rule out the presence of PCR inhibitors in the specimen or target RNA in concentration below the limit of detection for the assay. If only one viral target is positive but coinfection with multiple targets is suspected, the sample should be re-tested with another FDA cleared, approved, or authorized test, if coninfection would change clinical management. This test was validated by the [facility]. These laboratories are certified under the Clinical Laboratory Improvement Amendments of 1988 (CLIA-88) as qualified to perfom high complexity laboratory testing. Sameer Castillo DO LAB - MICRO GENERA L ORDERABLES Final Result LABORATORY [facility] [address] 1st floor, [address] [place] [address], [facility] [phone] * Chest XR, PA & LAT (09/13/2024 11:25 AM CARDIOTHORACIC PHYSIOTHERAPIST) Anatomical Region Laterality Modality Chest Digital Radiogra phy 09/13/2024 11:2 5 AM CARDIOTHORACIC PHYSIOTHERAPIST Impressions 09/13/2024 12:27 PM CARDIOTHORACIC PHYSIOTHERAPIST IMPRESSION: Pulmonary hyperinflation consistent with known emphysema. PFO closure device. Mild bibasilar opacities likely reflect atelectasis. Stable biapical scarring. No pleural effusion. Stable heart size. Narrative 09/13/2024 12:27 PM CARDIOTHORACIC PHYSIOTHERAPIST EXAM: XR CHEST 2 VIEWS LOCATION: [facility] DATE: 09/13/2024 INDICATION: chst pain and sob aftr aspirationj COMPARISON: CT 03/18/2024 Procedure Note Dionicio Ennis MD - 09/13/2024 EXAM: XR CHEST 2 VIEWS LOCATION: [facility] DATE: 09/13/2024 INDICATION: chst pain and sob aftr aspirationj COMPARISON: CT 03/18/2024 IMPRESSION: Pulmonary hyperinflation consistent with known emphysema. PFOclosure device. Mild bibasilar opacities likely reflect atelectasis.Stable biapical scarring. No pleural effusion. Stable heart size. Sameer Castillo DO IMG DIAGNOSTIC TAYLA GING ORDERABLES Final Result * Extra Blue Top Tube (09/13/2024 11:06 AM CARDIOTHORACIC PHYSIOTHERAPIST) Hold Specimen x 09/13/2024 11:46 AM CARDIOTHORACIC PHYSIOTHERAPIST LABORATORY Blood VENOUS LINE / Unknown Venipuncture / Unknown 09/13/2024 11:06 AM CARDIOTHORACIC PHYSIOTHERAPIST 09/13/2024 11:15 AM CARDIOTHORACIC PHYSIOTHERAPIST Sameer Clay'Neill DO LAB - BLOOD ORDERA BLES Final Result LABORATORY [facility] [address] 1[address], [address] [place] [address], [facility] [phone] * Troponin T, High Sensitivity (09/13/2024 11:06 AM CARDIOTHORACIC PHYSIOTHERAPIST) Pathologist [facility] Troponin T, High Sensitivity <6 <=14 ng/L 09/13/2024 11:47 AM CARDIOTHORACIC PHYSIOTHERAPIST LABORATORY Comment: Either a High Sensitivity Troponin T baseline (0 hours) value = 100 ng/L, or an increase in High Sensitivity Troponin T = 7 ng/L at 2 hours compared to 0 hours (2-0 hours), suggests myocardial injury, and urgent clinical attention is required. If the 2-0 hours increase is <7 [...] VENOUS LINE / Unknown Venipuncture / Unknown 09/13/2024 11:06 AM CARDIOTHORACIC PHYSIOTHERAPIST 09/13/2024 11:15 AM CARDIOTHORACIC PHYSIOTHERAPIST Sameer Castillo DO LAB - BLOOD ORDERA BLES Final Result LABORATORY [facility] [address] 1[address], [address] [place] [address], [facility] [phone] * (ABNORMAL) D dimer quantitative (09/13/2024 11:06 AM CARDIOTHORACIC PHYSIOTHERAPIST) [facility] D-Dimer Quantitative 0.82(H) 0.00 - 0.50 ug/mL FEU 09/13/2024 11:54 AM [facility] LABORATORY Blood VENOUS LINE / Unknown Venipuncture / Unknown 09/13/2024 11:06 AM CARDIOTHORACIC PHYSIOTHERAPIST 09/13/2024 11:15 AM CARDIOTHORACIC PHYSIOTHERAPIST Narrative LABORATORY - 09/13/2024 11:54 AM CARDIOTHORACIC PHYSIOTHERAPIST This D-dimer assay is intended for use in conjunction with a clinical pretest probability assessment model to exclude pulmonary embolism (PE) and deep venous thrombosis (DVT) in outpatients suspected of PE or DVT. The cut-off value is 0.50 ug/mL FEU. Sameer Castillo DO LAB - BLOOD ORDERA BLES Final Result LABORATORY [facility] [address] 1[address], [address] [place] [address], [facility] [phone] * (ABNORMAL) Comprehensive metabolic panel (09/13/2024 11:06 AM [facility]) Only the most recent of2 resultswithin the time period is included. [facility] Sodium 142 135 - 145 mmol/L 09/13/2024 11:47 AM [facility] Potassium 4.6 3.4 - 5.3 mmol/L 09/13/2024 11:47 AM [facility] Carbon Dioxide (CO2) 29 22 - 29 mmol/L 09/13/2024 11:47 AM [facility] Anion Gap 10 7 - 15 mmol/L 09/13/2024 11:47 AM [facility] Urea Nitrogen 14.5 6.0 - 20.0 mg/dL 09/13/2024 11:47 AM [facility] Creatinine 0.82 0.51 - 0.95 mg/dL 09/13/2024 11:47 AM [facility] GFR Estimate 88 >60 mL/min/1.7 3m2 09/13/2024 11:47 AM [facility] Comment:eGFR calculated us2020 CKD-EPI equation. Calcium 10.1 8.8 - 10.4 mg/dL 09/13/2024 11:47 AM [facility] Comment:Reference intervals for this test were updated on 03/31/2024 to reflect our healthy population more accurately. There may be differences in the flagging of prior results with similar values performed with this method. Those prior results can be interpreted in the context of the updated reference intervals. Chloride 103 98 - 107 mmol/L 09/13/2024 11:47 AM [facility] Glucose 105(H) 70 - 99 mg/dL 09/13/2024 11:47 AM [facility] Alkaline Phosphatase 117 40 - 150 U/L 09/13/2024 11:47 AM [facility] AST 28 0 - 45 U/L 09/13/2024 11:47 AM [facility] ALT 27 0 - 50 U/L 09/13/2024 11:47 AM [facility] Protein Total 7.9 6.4 - 8.3 g/dL 09/13/2024 11:47 AM [facility] Albumin 4.4 3.5 - 5.2 g/dL 09/13/2024 11:47 AM [facility] Bilirubin Total 0.9 <=1.2 mg/dL 09/13/2024 11:47 AM [facility] Blood VENOUS LINE / Unknown Venipuncture / Unknown 09/13/2024 11:06 AM CARDIOTHORACIC PHYSIOTHERAPIST 09/13/2024 11:15 AM CARDIOTHORACIC PHYSIOTHERAPIST Sameer Castillo DO LAB - BLOOD ORDERA BLES Final Result LABORATORY [facility] [address] 1[address], [address] [place] [address], [facility] [phone] * EKG 12 lead (09/13/2024 10:53 AM CARDIOTHORACIC PHYSIOTHERAPIST) Systolic Blood Pressure mmHg RADIOLOGY RESULTS Diastolic Blood Pressure mmHg RADIOLOGY RESULTS Ventricular Rate 88 BPM RAD IOLOGY RESULTS Atrial Rate 88 BPM RADIOLOG Y RESULTS [facility] Interval 148 ms RADIOLOG Y RESULTS QRS Duration 78 ms RADIOLO GY RESULTS QT 316 ms RADIOLOGY RESULTS QTc 382 ms RADIOLOGY RESULTS [address] 62 degrees RADIOLOGY RESULTS R AXIS 49 degrees RADIOLOGY RESULTS T [address] -12 degrees RADIOLOGY RESULTS Interpretation ECG Sinus rhythm Possible Left atrial enlargement T wave abnormality, consider inferolateral ischemia Abnormal ECG When compared with ECG of 10-May-2024 11:25, T wave inversion more evident in Inferior leads T wave inversion now evident in Anterior leads Confirmed by GENERATED REPORT, COMPUTER ([id number]), mapping editor Felicita Pettit ([id number]) on 09/13/2024 12:08:04 PM RADIOLOGY RESULTS 09/13/2024 10:5 3 AM CARDIOTHORACIC PHYSIOTHERAPIST 09/13/2024 12:08 PM CARDIOTHORACIC PHYSIOTHERAPIST Tran Qureshi MD ECG ORDERABLES Edited R esult - Final Performing Organization Address [facility] Co de Phone Number RADIOLOGY RESULTS * EEG Video 2-12 hrs Continuous Monitoring (09/11/2024 11:00 AM CARDIOTHORACIC PHYSIOTHERAPIST) Narrative [facility] - 09/13/2024 10:50 PM CARDIOTHORACIC PHYSIOTHERAPIST VIDEO EEG DATE: 09/11/2024 VIDEO EEG LOG: [id number] VIDEO EEG DAY#: 1 VIDEO EEG SOURCE FILE DURATION: 02 hours and 57 minutes INDICATION: Concerns for breakthrough seizures in the context of a GTC due to a stroke. CLINICAL INTERPRETATION The short term EEG revealed an excess of faster frequencies, likely medication related. There were no epileptiform discharges or seizures during this recording. TECHNICAL SUMMARY: This is a video-EEG monitoring [...] correlation and to assist with EEG interpretations. EEG REPORT The short-term video EEG recording during wakefulness contains 10 Hz alpha activity over the posterior head regions.There was an excess of fast activity. No additional activity occurred with photic stimulation. Hyperventilation was not done due to history of strokes. During the recording, the patient fell asleep spontaneously. The EKG channel revealed frequent PVCs. This report was written and reviewed by Cecile Mayo MD Randy Maradiaga DO IMG EEG ORDERABLES Final Result Performing Organization Address [facility] Co de Phone Number [id number] * CTA Angiogram coronary artery (08/07/2024 4:31 PM CARDIOTHORACIC PHYSIOTHERAPIST) Anatomical Region Laterality Modality Cardio, SUBRAD CT BODY, UMP CT CHEST, RAD CT Computed Tomography Impressions 08/07/2024 4:43 PM CARDIOTHORACIC PHYSIOTHERAPIST IMPRESSION: 1. Normal coronary anatomy with no detectable stenosis or plaque. 2. Please review Radiology report for incidental noncardiac findings that will follow separately. FINDINGS: DOMINANCE: Right dominant system. LEFT MAIN: The left main arises normally from the left coronary cusp and is widely patent without any stenosis or plaque. LEFT ANTERIOR DESCENDING: The left anterior descending and its major diagonal branches are widely patent without any detectable stenosis or plaque. CIRCUMFLEX: Very small vessel, first obtuse marginal artery is bigger. There is a very large normal right coronary artery providing large PL branches supplying circumflex territory. RIGHT CORONARY ARTERY: The right coronary artery and its major branches are widely patent without any detectable stenosis or plaque. ADDITIONAL FINDINGS: The proximal ascending aorta is normal in size. Atrial septal occluder device in place. There is no left atrial or left ventricular mass or thrombus. Normal pericardial thickness.There is no pericardial effusion. The proximal pulmonary arteries are well opacified. Please review Radiology report for incidental noncardiac findings that will follow separately. SERGEI WATTERS MD Narrative 08/07/2024 4:43 PM CARDIOTHORACIC PHYSIOTHERAPIST Procedure: CTA ANGIOGRAM CORONARY ARTERY Examination Date: 08/07/2024 4:31 PM Indication: Chest pain. Clinical Information: Chest pain, unspecified type Ordering Physician: Danna Cardenas PA-C Overall quality of the study: Adequate. PROCEDURE:The patient was positioned in the scanner gantry and an IV was started using an 18 gauge IV in the right antecubital fossa. Utilizing 120 cc Isovue 370, wasted 0 cc, multi-slice computed tomography was performed with a Siemens Dual Source Flash scanner without incident. Beta-blockers were required to optimize heart rate, patient was given Metoprolol 50 mg Oral, Ivabradine 10 mg po. The patient was given pre-medication of sublingual Nitrostat 0.4 mg prior to scanning. CTA was performed in the spiral mode at a heart rate of 62 bpm with 100 kVp. Images were reconstructed and analyzed on a [employer] workstation. Scan protocol was optimized to minimize radiation exposure. The total radiation exposure was calculated to be 405 DLP, and 6.31 mSv. Procedure Note Sergei Watters MD - 08/07/2024 Procedure: CTA ANGIOGRAM CORONARY ARTERY Examination Date: 08/07/2024 4:31 PM Indication: Chest pain. Clinical Information: Chest pain, unspecified type Ordering Physician: Danna Cardenas PA-C Overall quality of the study: Adequate. PROCEDURE:The patient was positioned in the scanner gantry and an IV was started using an 18 gauge IV in the right antecubital fossa. Utilizing 120 cc Isovue 370, wasted 0 cc, multi-slice computed tomography was performed with a Siemens Dual Source Flash scanner without incident. Beta-blockers were required to optimize heart rate, patient was given Metoprolol 50 mg Oral, Ivabradine 10 mg po. The patient was given pre-medication of sublingual Nitrostat 0.4 mg prior to scanning. CTA was performed in the spiral mode at a heart rate of 62 bpm with 100 kVp. Images were reconstructed and analyzed on a [employer] workstation. Scan protocol was optimized to minimize radiation exposure. The total radiation exposure was calculated to be 405 DLP, and 6.31 mSv. IMPRESSION: 1. Normal coronary anatomy with no detectable stenosis or plaque. 2. Please review Radiology report for incidental noncardiac findings that will follow separately. FINDINGS: DOMINANCE: Right dominant system. LEFT MAIN: The left main arises normally from the left coronary cusp and is widely patent without any stenosis or plaque. LEFT ANTERIOR DESCENDING: The left anterior descending and its major diagonal branches are widely patent without any detectable stenosis or plaque. CIRCUMFLEX: Very small vessel, first obtuse marginal artery is bigger. There is a very large normal right coronary artery providing large PL branches supplying circumflex territory. RIGHT CORONARY ARTERY: The right coronary artery and its major branches are widely patent without any detectable stenosis or plaque. ADDITIONAL FINDINGS: The proximal ascending aorta is normal in size. Atrial septal occluder device in place. There is no left atrial or left ventricular mass or thrombus. Normal pericardial thickness.There is no pericardial effusion. The proximal pulmonary arteries are well opacified. Please review Radiology report for incidental noncardiac findings that will follow separately. SERGEI WATTERS MD us Danna Cardenas PA-C IMG CT ORDERABLES Final Resu lt * Radiologist Consult For Cardiology (08/07/2024 4:31 PM CARDIOTHORACIC PHYSIOTHERAPIST) Anatomical Region Laterality Modality Computed Tomogra phy Impressions 08/10/2024 4:16 PM CARDIOTHORACIC PHYSIOTHERAPIST IMPRESSION: Pectus excavatum. Mosaic attenuation of the lungs suggests possible air trapping. MARLO FAULKNER MD Narrative 08/10/2024 4:16 PM CARDIOTHORACIC PHYSIOTHERAPIST RADIOLOGIST CONSULT FOR CARDIOLOGY 08/07/2024 4:31 PM HISTORY: Chest pain, unspecified type. COMPARISON: None. Procedure Note Marlo Faulkner MD - 08/10/2024 RADIOLOGIST CONSULT FOR CARDIOLOGY 08/07/2024 4:31 PM HISTORY: Chest pain, unspecified type. COMPARISON: None. IMPRESSION: Pectus excavatum. Mosaic attenuation of the lungs suggests possible air trapping. MARLO FAULKNER MD us Danna Cardenas PA-C IMG DIAGNOSTIC IMAGING ORDER NASRIN Final Result * HIV Antigen Antibody Combo (07/22/2024 11:17 AM CARDIOTHORACIC PHYSIOTHERAPIST) HIV Antigen Antibody Combo Nonreactive Nonreactive 07/23/2024 2:55 AM CARDIOTHORACIC PHYSIOTHERAPIST [facility] Comment:Negative HIV-1 p24 a ntigen and HIV-1/2 antibody screening test results usually indicate the absence of HIV-1 and HIV-2 infection. However, such negative results do not rule-out acute HIV infection. If acute HIV-1 or HIV-2 infection is suspected, detection of HIV-1 or HIV-2 RNA is recommended. This result is obtained using the Richard Ele[employer] HIV Duo method on the savannah e801 immunoassay analyzer. Blood BLOOD SPECIMEN / Unknown Venipuncture / Unknown 07/22/2024 11:17 AM CARDIOTHORACIC PHYSIOTHERAPIST 07/22/2024 11:17 AM CARDIOTHORACIC PHYSIOTHERAPIST us Denise Woodson APRN LEAD TELLER LAB - BLOOD ORDERABLES Final Result [facility] [place] [facility] [address] [facility], [address] [place] [address] * Hepatitis C Screen Reflex to HCV RNA Quant and Genotype (07/22/2024 11:17 AM CARDIOTHORACIC PHYSIOTHERAPIST) Hepatitis C Antibody Nonreactive Nonreactive 07/23/2024 10:25 AM CARDIOTHORACIC PHYSIOTHERAPIST [facility] Comment:A nonreactive screen ing test result does not exclude the possibility of exposure to or infection with HCV. Nonreactive screening test results in individuals with prior exposure to HCV may be due to antibody levels below the limit of detection of this assay or lack of reactivity to the HCV antigens used in this assay. Patients with recent HCV infections (<3 months from time of exposure) may have false- negative HCV antibody results due to the time needed for seroconversion (average of 8 to 9 weeks). Blood BLOOD SPECIMEN / Unknown Venipuncture / Unknown 07/22/2024 11:17 AM CARDIOTHORACIC PHYSIOTHERAPIST 07/22/2024 11:17 AM CARDIOTHORACIC PHYSIOTHERAPIST Denise Woodson APRN [facility] LAB - BLOOD ORDERABLES Final Result Performing Organization Address City/[facility]/ZIP Co de Phone Number LABORATORY [facility] [place] [facility] [address] [facility], [address] [address] * Vitamin D Deficiency (07/22/2024 11:17 AM CARDIOTHORACIC PHYSIOTHERAPIST) [facility] Vitamin D, Total (25-Hydroxy) 30 20 - 50 ng/mL 07/23/2024 10:41 AM CARDIOTHORACIC PHYSIOTHERAPIST [facility] Comment:optimum levels Blood BLOOD SPECIMEN / Unknown Venipuncture / Unknown 07/22/2024 11:17 AM CARDIOTHORACIC PHYSIOTHERAPIST 07/22/2024 11:17 AM CARDIOTHORACIC PHYSIOTHERAPIST Narrative LABORATORY - 07/23/2024 10:41 AM CARDIOTHORACIC PHYSIOTHERAPIST Season, race, dietary intake, and treatment affect the concentration of 18-kocalqw-Mqjzpvj D. Values may decrease during winter months and increase during summer months. Vitamin D determination is routinely performed by an immunoassay specific for 25 hydroxyvitamin D3. If an individual is on vitamin D2(ergocalciferol) supplementation, please specify 25 OH vitamin D2 and D3 level determination by LCMSMS test VITD23. Denise Woodson APRN [facility] LAB - BLOOD ORDERABLES Final Result LABORATORY [facility] [place] [facility] [address] [facility], [address] [address] * (ABNORMAL) TSH (07/22/2024 11:17 AM CARDIOTHORACIC PHYSIOTHERAPIST) TSH 8.19(H) 0.30 - 4.20 uIU/mL 07/23/2024 10:41 AM CARDIOTHORACIC PHYSIOTHERAPIST [facility] Blood BLOOD SPECIMEN / Unknown Venipuncture / Unknown 07/22/2024 11:17 AM CARDIOTHORACIC PHYSIOTHERAPIST 07/22/2024 11:17 AM CARDIOTHORACIC PHYSIOTHERAPIST Denise Woodson APRN LEAD TELLER LAB - BLOOD ORDERABLES Final Result LABORATORY [facility] [place] [facility], [address] * (ABNORMAL) Thyroid peroxidase antibody (07/22/2024 11:17 AM CARDIOTHORACIC PHYSIOTHERAPIST) Pathologist [facility] Thyroid Peroxidase Antibody 2,881(H) <35 IU/mL 07/23/2024 10:53 AM CARDIOTHORACIC PHYSIOTHERAPIST [facility]END O Blood BLOOD SPECIMEN / Unknown Venipuncture / Unknown 07/22/2024 11:17 AM CARDIOTHORACIC PHYSIOTHERAPIST 07/22/2024 11:17 AM CARDIOTHORACIC PHYSIOTHERAPIST Denise Woodson APRN, CNP LAB - BLOOD ORDERABLES Final Result [facility]ENDO [facility]Prot[facility]Endo [address] [facility], [address] * T4, free (07/22/2024 11:17 AM CARDIOTHORACIC PHYSIOTHERAPIST) Only the most recent of2 resultswithin the time period is included. Pathologist [facility] Free T4 1.27 0.90 - 1.70 ng/dL 07/23/2024 10:41 AM CARDIOTHORACIC PHYSIOTHERAPIST LABORATORY Blood BLOOD SPECIMEN / Unknown Venipuncture / Unknown 07/22/2024 11:17 AM CARDIOTHORACIC PHYSIOTHERAPIST 07/22/2024 11:17 AM CARDIOTHORACIC PHYSIOTHERAPIST Denise Woodson APRN, CNP LAB - BLOOD ORDERABLES Final Result LABORATORY [facility] [place] [facility] [address] [facility], [address] [phone] * T3, total (07/22/2024 11:17 AM CARDIOTHORACIC PHYSIOTHERAPIST) Pathologist [facility] T3 Total 131 85 - 202 ng/dL 07/23/2024 10:41 AM CARDIOTHORACIC PHYSIOTHERAPIST LABORATORY Blood BLOOD SPECIMEN / Unknown Venipuncture / Unknown 07/22/2024 11:17 AM CARDIOTHORACIC PHYSIOTHERAPIST 07/22/2024 11:17 AM CARDIOTHORACIC PHYSIOTHERAPIST Denise Woodson APRN LEAD TELLER LAB - BLOOD ORDERABLES Final Result LABORATORY [facility] [address] [facility], [address] [address] * Vitamin B12 (07/22/2024 11:17 AM CARDIOTHORACIC PHYSIOTHERAPIST) [facility] Vitamin B12 456 232 - 1,245 pg/mL 07/23/2024 10:41 AM CARDIOTHORACIC PHYSIOTHERAPIST LABORATORY Blood BLOOD SPECIMEN / Unknown Venipuncture / Unknown 07/22/2024 11:17 AM CARDIOTHORACIC PHYSIOTHERAPIST 07/22/2024 11:17 AM CARDIOTHORACIC PHYSIOTHERAPIST Denise Woodson APRN LEAD TELLER LAB - BLOOD ORDERABLES Final Result LABORATORY [facility] [address] [facility], [address] [address] * ZIO PATCH MAIL OUT (07/16/2024 11:43 [...] PM CDT Narrative 07/13/2024 4:29 PM CDT [id number]^EVER^AZRA^Analy [facility] [address] [place] [address] Name: CHRISTOPHER TY : 1975 Study Date: 07/13/2024 03:16 PM Age: 48 yrs Gender: Female Patient Location: [facility] Reason For Study: TIA Ordering Physician: AZRA CURTIS Performed By: Janna Fenton BSA: 2.1 m2 Height: 68 in Weight: 214 lb HR: 71 BP: 138/92 mmHg Procedure Complete Portable Echo Adult. Definity ([facility] #[id number]) given intravenously. Contrast Definity. Technically difficult study.Extremely [...] Procedure Note Joe Matos MD - 07/13/2024 [id number]^EVER^AZRA^Analy [facility] [address] [place] [address] Name: CHRISTOPHER TY : 1975 Study Date: 07/13/2024 03:16 PM Age: 48 yrs Gender: Female Patient Location: [facility] Reason For Study: TIA Ordering Physician: AZRA CURTIS Performed By: Janna Fenton BSA: 2.1 m2 Height: 68 in Weight: 214 lb HR: 71 BP: 138/92 mmHg Procedure Complete Portable Echo Adult. Definity ([facility] #[id number]) givenintravenously. Contrast Definity. Technically difficult study.Extremely difficultacoustic [...] ORDERABLES Edite d Result - Final * (ABNORMAL) Lipid panel reflex to direct [...] Borderline High: 130 - 159 mg/dL High: 160 - 189 mg/dL Very High: >= 190 mg/dL Non HDL Cholesterol Desirable: < 130 mg/dL Above Desirable: 130 - 159 mg/dL Borderline High: 160 - 189 mg/dL High: 190 - 219 mg/dL Very High: >= 220 mg/dL Azra Curtis PA-C LAB - BLOOD ORDERABLES F inal Result U LABORATORY [facility] [place] [facility] [address] [facility] [address], [address] [place] [address], [facility] LABORATORY [facility] [address], [address] [place] [address], [facility] [phone] * Hemoglobin A1c (07/13/2024 12:40 PM CDT) Pathologist [facility] Estimated Average Glucose 111 <117 mg/dL 07/13/2024 1:16 PM CDT LABORATORY Hemoglobin A1C 5.5 <5.7 % 07/13/2024 1:16 PM CDT LABORATORY Comment: Normal <5.7% Prediabetes 5.7-6.4% Diabetes 6.5% or higher Note: Adopted from ADA consensus guidelines. Blood STRUCTURE OF LEFT WRIST REGION / Unknown Venipuncture / Unknown 07/13/2024 12:40 PM CDT 07/13/2024 12:58 PM CDT us Azra Curtis PA-C LAB - BLOOD ORDERABLES F inal Result LABORATORY [facility] [address], [address] [place] [address], [facility] [phone] * Glucose by meter (07/13/2024 7:56 AM CDT) [facility] GLUCOSE BY METER POCT 93 70 - 99 mg/dL 07/13/2024 8:03 AM CDT LABORATORY POC Blood, Capillary BLOOD SPECIMEN / Unknown 07/13/2024 7:56 AM CDT 07/13/2024 8:03 AM CDT Morgan Morales MD LAB - BEAKER POCT Final Resu lt Performing Organization Address City/[facility]/ZIP Co de Phone Number LABORATORY POC [facility] [address], [address] [place] [address], [facility] * MR Brain w/o Contrast (07/13/2024 1:09 AM CDT) Anatomical Region Laterality Modality Head, SUBRAD MR NEURO, UMP MR NEURO, RAD MR Magnetic Resonance 07/13/2024 1:09 AM CDT Impressions 07/13/2024 1:21 AM CDT FINDINGS/IMPRESSION: 1. Only sagittal T1 images and diffusion imaging obtained secondary to patient terminating examination early. No acute infarct. No hydrocephalus. No other gross abnormality identified. Narrative 07/13/2024 1:21 AM CDT EXAM: MR BRAIN W/O CONTRAST LOCATION: [facility] DATE: 07/13/2024 INDICATION: right sided numnbess. difficulty swallowing. hx of strokes COMPARISON: MRI brain May 15, 2024. TECHNIQUE: Routine multiplanar multisequence head MRI without intravenous contrast. Procedure Note Alfred Kruger MD - 07/13/2024 EXAM: MR BRAIN W/O CONTRAST LOCATION: [facility] DATE: 07/13/2024 INDICATION: right sided numnbess. difficulty [...] Keppra (Levetiracetam) Level 13.3 10.0 - 40.0 g/mL 07/13/2024 4:46 AM CDT [facility] Blood BLOOD SPECIMEN / Unknown Venipuncture / Unknown 07/12/2024 11:28 PM CDT 07/12/2024 11:35 PM CDT Rocio Ann MD LAB - BLOOD ORDERABLES Final Result LABORATORY [facility] [place] [facility] [address] [facility], [address] * (ABNORMAL) TSH with free T4 reflex (07/12/2024 11:28 PM CDT) TSH 9.38(H) 0.30 - 4.20 uIU/mL 07/13/2024 11:17 AM CDT [facility] Blood BLOOD SPECIMEN / Unknown Venipuncture / Unknown 07/12/2024 11:28 PM CDT 07/12/2024 11:35 PM CDT Azra Curtis PA-C LAB - BLOOD ORDERABLES F inal Result LABORATORY [facility] [place] [facility] [address] [facility], [address] * Lab Result - HIM Scan (07/12/2024 12:00 AM CDT) 07/12/2024 us Provider Outside NON-BEAKER LAB TESTING Final Result * CT Imaging - HIM Scan (07/12/2024 12:00 AM CDT) Anatomical Region Laterality Modality Computed Tomogra phy 07/12/2024 us Provider Outside IMG CT ORDERABLES Final Result * CT Vascular - HIM Scan (07/12/2024 12:00 AM CDT) Anatomical Region Laterality Modality Computed Tomogra phy 07/12/2024 us Provider Outside IMG CT ORDERABLES Final Result * EKG 12-lead complete w/read - Clinics (performed today) (06/26/2024) us Danna Cardenas PA-C ECG ORDERABLES Final Result * MA Screen Bilateral w/Mat (04/25/2022 5:03 [...] letter mailed to patient. JEVON HOWELL MD us Denise Woodson APRN LEAD TELLER IMG MAMMOGRAPHY ORDERAB LES Final Result from Last 3 Months or Most Recently Relevant to Health Maintenance Additional Health Concerns Active Problems Noted Date Diagnosed Date Increased risk of re-admission 02/18/2024 Insurance 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 [address] , [address] [place] [address] [facility] * Guarantor: Christopher Ty Account Type Relation to Patient Date of Phone Billing Address Medication Therapy Self 1975 [address] [place], [place] [id number] [place], [place] [address] Advance Directives For more information, please contact: [phone] * Full Code (Latest Code Status on [...] patie nt/ legal decision maker Care Teams Otolaryngology Physician Relationship Specialty Start Date End Date Winston Villatoro OD [facility] [place] [address] [place] [address] PCP - Ophthalmology Ophthalmology 02/11/13 Denise Woodson APRN LEAD TELLER [address] [place] [address] PCP - General Family Practice 09/21/20 Denise Woodson APRN LEAD TELLER [address] [place] [address] Assigned PCP 07/17/20 Usha Simon APRN LEAD TELLER [address] [facility], [place] [address] Nurse Practitioner Neurological Surgery 01/24/24 Dangelo Salinas MD [address] [place], [place] [id number] Neurology 01/27/24 Anastasia Stearns, RN Lead Garbage Man 02/06/24 Germaine Lopez, W Community Health Worker Primary Care - CC 02/18/24 Joya Lira RPH [address] [place] [address] Pharmacist Pharmacist 05/25/24 Joya Lira RPH [address] [place] [address] Assigned MTM Pharmacist 06/08/24 Fabi Coates MD [address] [facility] [address] [place] [address] Genetics, Clinical 06/18/24 Danna Cardenas PA-C [address] [place] [address] Assigned Heart and Vascular Provider 07/08/24 Arthur Salas LICSW [address] [place] [address] Assigned Behavioral Health Provider 08/08/24 Randy Maradiaga DO [address] [place] [id number] Assigned Neuroscience Provider 08/08/24
--- OUTSIDE RECORDS SUMMARY | 2024-09-20 18:05 | XMS_ITS | Clinical Summary ---
Author Organization [facility] Address [place], [place] [address] Care Team Providers Care Oil Pump Station Operator Chief Name Role Phone Keira Irvin MD Primary Care Provider + Allergies Active Allergy Reactions Criticality Noted Date Comments Acetaminophen-Codeine Nausea And Vomiting,Other - Describe In Comment Field 01/10/2022 Bupropion Other - Describe In Comment Field 01/19/2011 Diarrhea and stomach ache Erythromycin 07/04/2007 Mold Dizziness 08/22/2012 Pollen Extracts *Unknown 08/22/2012 Medications cyclobenzaprine (FLEXERIL) 10 mg tabletIndication s:Cervical disc syndrome Take 1 tablet by mouth 3 times daily. As needed for muscle spasm 30 tablet 1 05/16/20 12 Active albuterol HFA (PRO-AIR,VENTOLI N,PROVENTIL) 90 mcg/actuation inhalerIndicatio ns:Mild persistent asthma with acute exacerbation Inhale 2 Puffs by mouth 4 times daily if needed. 1 Inhaler 0 01/13/20 16 Active ondansetron (ZOFRAN) 4 mg tabletIndication s:Periumbilical pain Take 1 tablet by mouth every 8 hours if needed for Nausea/Vomiting. 30 tablet 11/02/19 20 Active Magnesium Amino Acid Chelate 100 mg tab Take 100 mg by mouth. Active ketorolac (TORADOL) 10 mg tablet Take 10 mg by mouth every 6 hours if needed. 06/03/20 21 Active LORazepam (ATIVAN) 0.5 mg tab as needed. Active fluticasone furoate-vilanter oL (Breo Ellipta) 200mcg/25mcg inhalerIndicatio ns:BPD (bronchopulmonar y dysplasia) Inhale 1 Puff by mouth once daily. 90 Each 3 03/07/20 22 Active traZODone (DESYREL) 100 mg tabletIndication s:Other insomnia Take 1 Tablet (100 mg) by mouth at bedtime. 90 Tablet 3 03/07/20 22 Active methylPREDNISolo ne (MEDROL DOSEPAK) 4 mg tabletIndication s:AVF (arteriovenous fistula) (HC) Take by mouth as instructed per packaging. 21 Tablet 01/09/2024 2:58 PM CDT 01/09/20 24 Active acetaminophen (TYLENOL EXTRA STRGTH) 500 mg tabletIndication s:AVF (arteriovenous fistula) (HC) Take 1-2 Tablets (500-1,000 mg) by mouth every 6 hours if needed for Headache or Pain. Max acetaminophen dose: 4000mg in 24 hrs. 01/09/20 24 Active aspirin 325 mg tabletIndication s:Cerebrovascula r accident (CVA), unspecified mechanism (HC) Take 1 Tablet (325 mg) by mouth once daily. 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 Unable to assess, family/SO in room. 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 Not on file Not on file Not on file Obstetrics History Last Filed Vital Signs Vital Sign Reading Time Taken Comments Blood Pressure 153/91 01/09/2024 2:00 PM CDT Pulse 81 01/09/2024 2:00 PM CDT Temperature 36.6 C (97.8 F) 01/10/2022 4:36 PM CDT Respiratory Rate 14 01/09/2024 2:00 PM CDT [...] Additional history exists Pneumococcal series for age 6-49 Aged Out 03/16/2004 No longer eligible based on patient's age to complete this topic Tdap Completed 01/04/2021, 01/26/2011 Procedures Procedure Name Priority Date/Time Associated Diagnosis Comments LIPID PANEL W REFLEX MEASURED LDL Routine 08/03/2011 10:31 AM STEAM TURBINE OPERATOR Screening for other and unspecified cardiovascular conditions from Last 3 Months or Most Recently Relevant to Health Maintenance Results * LIPID PANEL W REFLEX MEASURED LDL (08/03/2011 10:31 AM STEAM TURBINE OPERATOR) CHOLESTEROL,TOTAL 171 110 - 199 mg/dL [facility] TRIGLYCERIDES 67 <150 mg/dL [facility] HDL CHOLESTEROL 43 >40 mg/dL [facility] CHOL/HDL RATIO 3.98 <4.51 [facility] LDL CHOLESTEROL 115 <131 mg/dL [facility] PATIENT STATUS Fasting [facility] Blood specimen (specimen) BLOOD SPECIMEN / Unknown 08/03/2011 10:31 AM STEAM TURBINE OPERATOR 08/03/2011 10:23 AM STEAM TURBINE OPERATOR us Jasvir Pickens MD CHEMISTRY Final Re sult [facility] [address] [place] [address] from Last 3 Months or Most Recently Relevant to Health Maintenance Insurance MICHAELPRIMO MCNEAL [id number] Advance Directives * Full Code (Latest Code Status on File) Date Activated Date Inactivated Comments 01/09/2024 7:44 AM 01/09/2024 6:26 PM Question Answer Comments Code Status Discussion: Reviewed Preferences Care Teams Oil Pump Station Operator Chief Relationship Specialty Start Date End Date Keira Irvin MD [address] [place] [address] PCP - General Family Practice 01/08/24
--- OUTSIDE RECORDS SUMMARY | 2024-09-20 18:05 | XMS_ITS | Continuity of Care Document ---
Author Name NwHARLANN User [id number] llowed Address Unknown Organization Unknown Address Unknown Procedures FILTER APPLIED:Only known Procedures with Onset Date within the last 5 years Procedure Date Procedure Provider Additiona l Information Status ADMISSION MED REC MARKER FOR REPORTING AND BPA'S (23309) Completed ADMISSION MED REC MARKER FOR REPORTING AND BPA'S (36144) Completed ISTAT CREATININE POCT (29016) Completed URINALYSIS AUTO W/SCOPE (37642) Completed ASSAY OF MAGNESIUM (11193) Completed ASSAY THYROID STIM HORMONE (94637) Completed COMPLETE CBC W/AUTO DIFF WBC (71450) Completed C-REACTIVE PROTEIN (88945) Completed ELECTROCARDIOGRAM TRACING (71737) Completed CT HEAD/BRAIN W/O DYE (69148) Completed ROUTINE VENIPUNCTURE (22074) Completed METABOLIC PANEL TOTAL CA (64433) Completed X-RAY EXAM CHEST 1 VIEW (08896) Completed RESP VIRUS 3-5 TARGETS (87547) Completed ADMISSION MED REC MARKER FOR REPORTING AND BPA'S (18499) Completed FACTOR 2 ASSAY (92010) C ompleted ADMISSION MED REC MARKER FOR REPORTING AND BPA'S (49366) Completed ADMISSION MED REC MARKER FOR REPORTING AND BPA'S (93925) Completed SPEECH/HEARING THERAPY (85190) Completed CARDIOLIPIN ANTIBODY EA IG (74383) Completed F5 GENE (96898) Complete d SELF CARE MNGMENT TRAINING (33611) Completed OT EVAL MOD COMPLEX 45 MIN (66040) Completed NEUROMUSCULAR REEDUCATION (98270) Completed THERAPEUTIC EXERCISES (27985) Completed TTE W/DOPPLER COMPLETE (35749) Completed THERAPEUTIC ACTIVITIES (64302) Completed CT HEAD/BRAIN W/O DYE (09031) Completed EVALUATE SWALLOWING FUNCTION (13126) Completed PT EVAL MOD COMPLEX 30 MIN (95382) Completed GAIT TRAINING THERAPY (13812) Completed HEMOGLOBIN GLYCOSYLATED A1C (87023) Completed LIPID PANEL (27441) Comp leted EMERGENCY DEPT VISIT HI MDM (69400) Completed CT ANGIOGRAPHY HEAD (15723) Completed MRI BRAIN STEM W/O DYE (63819) Completed MEASURE BLOOD OXYGEN LEVEL (02525) Completed COMPLETE CBC W/AUTO DIFF WBC (38594) Completed METABOLIC PANEL TOTAL CA (84941) Completed ROUTINE VENIPUNCTURE (27310) Completed EMERGENCY DEPT VISIT MOD MDM (43073) Completed ELECTROCARDIOGRAM TRACING (11411) Completed CT ANGIOGRAPHY NECK (55345) Completed ASSAY OF TROPONIN QUANT (33313) Completed UPPER EXTREMITY STUDY (69539) Completed EMERGENCY DEPT VISIT LOW MDM (97988) Completed EMERGENCY DEPT VISIT LOW MDM (56012) Completed CT HEAD/BRAIN W/O DYE (51207) Completed METABOLIC PANEL TOTAL CA (32086) Completed ROUTINE VENIPUNCTURE (55532) Completed EMERGENCY DEPT VISIT MOD MDM (85945) Completed THER/PROPH/DIAG INJ IV PUSH (32469) Completed C-REACTIVE PROTEIN (90116) Completed RBC SED RATE NONAUTOMATED (39865) Completed COMPLETE CBC W/AUTO DIFF WBC (59031) Completed COMPLETE CBC W/AUTO DIFF WBC (79730) Completed CT ANGIOGRAPHY NECK (28115) Completed EMERGENCY DEPT VISIT MOD MDM (50432) Completed ROUTINE VENIPUNCTURE (79648) Completed CT HEAD/BRAIN W/O DYE (65679) Completed CT ANGIOGRAPHY HEAD (58645) Completed EMERGENCY DEPT VISIT HI MDM (11763) Completed METABOLIC PANEL TOTAL CA (08993) Completed THER/PROPH/DIAG INJ IV PUSH (13316) Completed ASSAY THYROID STIM HORMONE (63326) Completed ASSAY OF FREE THYROXINE (62239) Completed Encounters FILTER APPLIED:Only known Encounters with Admission Date within the last 5 years Encounter Location Admission Discharge Billing Code Clinical Safety Specialist A paco Outpatient Radha Irvin Emergency Cindy Beaulieu Emergency Dillan Baker Emergency Chucky Cordova Emergency Trisha padilla Outpatient Luciano Gutierrez Inpatient [id number] Cristina Villarreal Outpatient Dillan Baker Unknown [facility] Inpatient [facility] Outpatient [facility] Outpatient [facility] Outpatient [facility] Outpatient [facility] Emergency Anthony Lepe Emergency Dillan Baker Outpatient [facility] Outpatient [facility] Emergency [facility] Outpatient [facility] Outpatient [facility] Outpatient [facility] Emergency [facility] Outpatient [facility] Outpatient [facility] Out[facility] Outpatient [facility] Outpatient [facility] Outpatient [facility] Outpatient [facility] Outpatient [facility] Emergency [facility] Outpatient [facility] Outpatient [facility] Outpatient [facility] Outpatient [facility] Outpatient [facility] Outpatient [facility] Outpatient [facility] Outpatient [facility] Outpatient [facility] Outpatient [facility] Outpatient [facility] Outpatient [facility] Outpatient [facility] Outpatient [facility] Outpatient [facility] Outpatient [facility] Outpatient [facility] Outpatient [facility] Outpatient [facility] Outpatient [facility] Outpatient [facility] Outpatient [facility] Outpatient [facility] Emergency [facility] Emergency [facility] Inpatient [facility] Outpatient [facility] Outpatient [facility] Outpatient [facility] Outpatient [facility] Outpatient [facility] Outpatient [facility] Outpatient [facility] Outpatient [facility] Outpatient [facility] Outpatient [facility] Outpatient [facility] Outpatient [facility] Outpatient [facility] Outpatient [facility] Outpatient [facility] Outpatient [facility] Emergency [facility] Outpatient [facility]
--- OUTSIDE RECORDS SUMMARY | 2024-09-20 18:06 | XMS_ITS | Encounter Summary ---
Author Organization [facility] Address [address] [place] [address] Care Team Providers Care Laryngologist Name Role Phone Winston Villatoro OD Unavailable [phone] Denise Woodson APRN FORMAT PROOFREADER Unavailable [phone] Denise Woodson APRN FORMAT PROOFREADER Primary Care Provider Usha Simon APRN FORMAT PROOFREADER Unavailable [phone] Dangelo Salinas MD Unavailable Anastasia Stearns RN Unavailable [phone] Germaine Lopez [facility] Unavailable Joya Lira [facility] Unavailable Joya Lira [facility] Unavailable Fabi Coates MD Unavailable [phone] Danna CardenasC Unavailable [phone] Arthur Salas SCOOTER MECHANIC Unavailable [phone] Randy Maradiaga DO Unavailable + Encounter Details Date Type Department Care Team (Latest Contact Info) Description 09/16/2024 Travel Social History Tobacco Use Types Packs/Day [...] Never 09/16/2024 How often do you attend baptism or buddhism serv ices? 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 [address] [place] [phone] Denise Woodson APRN [facility] [address] [place] [address] 09/29/2024 9:00 AM FOOD SAFETY OFFICER Virtual Visit [facility] Neurology Clinic [address] 3rd [place] [address] Randy Maradiaga, DO [address] [place] [address] 10/09/2024 1:20 PM FOOD SAFETY OFFICER Office Visit [facility] Heart Clinic [place] [address] [facility] [address] [place] [phone] Danna Cardenas PA-C [address] [place], [place] [address] 10/15/2024 11:00 AM FOOD SAFETY OFFICER Office Visit [facility] [address] [place] [address] Denise Woodson APRN FORMAT PROOFREADER [address] [place], [place] [id number] 10/30/2024 4:00 PM FOOD SAFETY OFFICER Virtual Visit [facility] Vascular Clinic [place] [address] [place] [phone] Lisa Zambrano MD [address] [place], [place] [address] 12/29/2024 12:45 PM CDT Office Visit [facility] [address] [place] [address] Ave [facility] [address] [phone] Fbai Coates MD [address] 3[address] 12/29/2024 1:45 PM CDT Office Visit [facility] Pediatric Specialty Clinic [address] [place], [place] [address]e Explorer [address] [phone] Fabi Coates MD [address] [address]65[address] 06/01/2025 11:15 AM CDT Appointment [facility] Care Center Imaging [address] [place] [phone] Robin Zepeda MD [address] [place] [address] 06/04/2025 11:00 AM CDT Office Visit [facility] Neurosurgery Clinic [address] 3rd [place] [phone] Robin Zepeda MD [address] [place] [phone] Usha Simon APRN FORMAT PROOFREADER [address] [place] [address] [phone] documented as of this encounter Goals Goal Patient Goal Type Associated Problems Recent Progress Patient-Stated? Author I would like additional resources and support to manage my health and prevent future avoidable ED visits/hospital admissions Care Plan Increased risk of re-admission 40%( 4 3:02 PM FOOD SAFETY OFFICER) Anastasia Talamantes, RN Note: Barriers: diagnosis of multiple, chronic, complex medical conditions, provider availability - wait time to complete appointments, etc. Strengths: motivated, engaged in care coordination Patient expressed understanding of goal: yes Action steps to achieve this goal: 1. I will follow up with my providers as scheduled/recommended - Pulmonology: TBD - Mental Health weekly - PT, OT and FUEL ISLAND ATTENDANT, continuing through [facility]: - PCP: 09/18/2024 & 10/15/2024. - Vascular [...] clinic with 24/7 after hours services available. Pit Steward will remain available as needed. documented as of this encounter Visit Diagnoses Not on filedocumented in this encounter Additional Health Concerns Active Problems Noted Date Diagnosed Date Increased risk of re-admission 02/18/2024 Assessment Noted Time PHQ-9 Depression Total Score: 5 08/03/20 24 12:49 PM FOOD SAFETY OFFICER documented as of this encounter Care Teams Laryngologist Relationship Specialty Start Date End Date Winston Villatoro OD [facility] [place] [address] [facility] [address] [place] [address] PCP - Ophthalmology Ophthalmology 02/11/13 Denise Woodson APRN FORMAT PROOFREADER [address] [place] [address] PCP - General Family Practice 09/21/20 Denise Woodson APRN FORMAT PROOFREADER [address] [place] [address] Assigned PCP 07/17/20 Usha Simon APRN FORMAT PROOFREADER [address] [facility] [id number] [place] [address] Nurse Practitioner Neurological Surgery 01/24/24 Dangelo Salinas MD [address] [place] [address] Neurology 01/27/24 Anastasia Stearns, RN Lead Pit Steward 02/06/24 Germaine Lopez, [facility] Community Health Worker Primary Care - CC 02/18/24 Joya Lira RPH [address] [place] [address] Pharmacist Pharmacist 05/25/24 Joya Lira [facility] [address] [place] [address] Assigned MTM Pharmacist 06/08/24 Fabi Coates MD [address] [place] [address] Genetics, Clinical 06/18/24 Danna Cardenas PA-C [address] [place] [address] Assigned Heart and Vascular Provider 07/08/24 Arthur Salas LICSW [address] [address] Assigned Behavioral Health Provider 08/08/24 Randy Maradiaga DO [address] [place] [address] Assigned Neuroscience Provider 08/08/24 documented as of this encounter
--- OUTSIDE RECORDS SUMMARY | 2024-09-20 18:06 | XMS_ITS | Encounter Summary ---
Author Organization [facility] Address [address] [place] [address] Care Team Providers Care Supervisor [employer] Name Role Phone Winston Villatoro OD Unavailable [phone] Denise Woodson APRN AUTOMOTIVE MACHINIST Unavailable [phone] Denise Woodson APRN AUTOMOTIVE MACHINIST Primary Care Provider Usha Simon APRN AUTOMOTIVE MACHINIST Unavailable [phone] Dangelo Salinas MD Unavailable Anastasia Stearns RN Unavailable [phone] Germaine Lopez [facility] Unavailable Joya Lira [facility] Unavailable Joya Lira [facility] Unavailable [phone] Fabi Coates MD Unavailable [phone] Danna CardenasC Unavailable [phone] Arthur Salas SHIPPING INSPECTOR Unavailable [phone] Randy Maradiaga DO Unavailable + Encounter Details Date Type Department Care Team (Latest Contact Info) Description 09/13/2024 Travel Social History Tobacco Use Types Packs/Day [...] How often do you attend confucianist or gnosticist serv ices? Never 02/28/2024 Do [...] Answer Date Recorded PHQ-2 Score 2 08/04/2024 [facility] of Occupat ional Health - [...] on file Legal Sex 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 [employer] Gender Identity Not on file Sexual Orientation [...] st Contact Info) Description 09/25/2024 11:00 AM [employer] Office Visit [facility] [address] [place] [phone] Denise Woodson APRN [facility] [address] [place] [address] 09/29/2024 9:00 AM [employer] Virtual Visit [facility] Neurology [address]rd [place] [address] Randy Maradiaga, DO [address] [place] [address] 10/09/2024 1:20 PM [employer] Office Visit [facility] Heart Clinic [place] [address] [facility] [address] [place] [phone] Danna Cardenas PA-C [address] [place], [place] [address] 10/15/2024 11:00 AM [employer] Office Visit [facility] [address] [place] [address] Denise Woodson APRN AUTOMOTIVE MACHINIST [address] [place], [place] [phone] 10/30/2024 4:00 PM [employer] Virtual Visit [facility] Vascular Clinic [place] [address] [place] [phone] Lisa Zambrano MD [address] [place], [place] [address] 12/29/2024 12:45 PM CDT Office Visit [facility] [address] [place] [address] Ave [address] [phone] Fabi Coates MD [address] [address] 12/29/2024 1:45 PM CDT Office Visit [facility] Pediatric Specialty Clinic [address] [place], [place] [address]e Explorer [address] [phone] Fabi Coates MD [address] [address] 06/01/2025 11:15 AM CDT Appointment [facility] Care Center Imaging [address] [place] [phone] Robin Zepeda MD [address] [place] [phone] 06/04/2025 11:00 AM CDT Office Visit [facility] Neurosurgery Clinic [address] 3rd [place] [phone] Robin Zepeda MD [address] [place] [phone] Usha Simon APRN AUTOMOTIVE MACHINIST [address] [place] [address] 709135 documented as of this encounter Goals Goal Patient Goal Type Associated Problems Recent Progress Patient-Stated? Author I would like additional resources and support to manage my health and prevent future avoidable ED visits/hospital admissions Care Plan Increased risk of re-admission 40%( 4 3:02 PM [employer]) Anastasia Talamantes, RN Note: Barriers: diagnosis of multiple, chronic, complex medical conditions, provider availability - wait time to complete appointments, etc. Strengths: motivated, engaged in care coordination Patient expressed understanding of goal: yes Action steps to achieve this goal: 1. I will follow up with my providers as scheduled/recommended - Pulmonology: TBD - Mental Health weekly - PT, OT and HAND STONE POLISHER, continuing through [facility]: - PCP: 09/18/2024 & 10/15/2024. - Vascular [...] clinic with 24/7 after hours services available. Veterinary Laboratory Technician will remain available as needed. documented as of this encounter Visit Diagnoses Not on filedocumented in this encounter Additional Health Concerns Active Problems Noted Date Diagnosed Date Increased risk of re-admission 02/18/2024 Infection Onset Date Last Indicated Resolved Time Rule Out COVID-19 09/13/2024 09/13/2024 09/13/2024 12:31 PM [employer]AMPUS [employer] Assessment Noted Time PHQ-9 Depression Total Score: 5 08/03/20 24 12:49 PM [employer] documented as of this encounter Care Teams Supervisor [employer]aking [employer] Relationship Specialty Start Date End Date Winston Villatoro OD [facility] [address] [facility] [address] [place] [address] PCP - Ophthalmology Ophthalmology 02/11/13 Denise Woodson APRN AUTOMOTIVE MACHINIST [address] [place] [address] PCP - General Family Practice 09/21/20 Denise Woodson APRN AUTOMOTIVE MACHINIST [address] [place] [address] Assigned PCP 07/17/20 Usha Simon APRN AUTOMOTIVE MACHINIST [address] [facility] [address] Nurse Practitioner Neurological Surgery 01/24/24 Dangelo Salinas MD [address] [place] [address] Neurology 01/27/24 Anastasia Stearns, RN Lead Veterinary Laboratory Technician 02/06/24 Germaine Lopez, W Community Health Worker Primary Care - CC 02/18/24 Joya Lira [facility] [address] [place] [address] Pharmacist Pharmacist 05/25/24 Joya Lira [facility] [address] [place] [address] Assigned MTM Pharmacist 06/08/24 Fabi Coates MD [address] [place] [address] [address] [place], [place] [address] Genetics, Clinical 06/18/24 Danna Cardenas PA-C [address] [place] [address] Assigned Heart and Vascular Provider 07/08/24 Arthur Salas LICSW [address] [place] [address] Assigned Behavioral Health Provider 08/08/24 Randy Maradiaga DO [address] [place], [place] [address] Assigned Neuroscience Provider 08/08/24 documented as of this encounter
--- OUTSIDE RECORDS SUMMARY | 2024-09-20 18:06 | XMS_ITS | Encounter Summary ---
Author Organization [facility] Address [address] [place] [address] Care Team Providers Care Airworthiness Inspector Name Role Phone Winston Villatoro OD Unavailable [phone] Denise Woodson APRN VEGETABLE TRIMMER Unavailable [phone] Denise Woodson APRN VEGETABLE TRIMMER Primary Care Provider Usha Simon APRN VEGETABLE TRIMMER Unavailable [phone] Dangelo Salinas MD Unavailable Anastasia Stearns RN Unavailable Germaine Lopez [facility] Unavailable Joya Lira [facility] Unavailable [phone] Joya Lira [facility] Unavailable Fabi Coates MD Unavailable [phone] Danna CardenasC Unavailable [phone] Arthur Salas SULFURIC ACID PLANT SUPERVISOR Unavailable [phone] Randy Maradiaga DO Unavailable + Encounter Details Date Type Department Care Team (Latest Contact Info) Description 09/18/2024 Travel Social History Tobacco Use Types Packs/Day [...] Never 09/16/2024 How often do you attend latter-day or alevism serv ices? 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 Not on file Not on file Not on file Not on file Not on file Not on file documented as of this encounter Plan of Treatment Upcoming Encounters Date Type Department Care Team (Late st Contact Info) Description 09/25/2024 11:00 AM ORDER EDITOR Office Visit [facility] [address] [place] [phone] Denise Woodson APRN [facility] [address] [place] [address] 09/29/2024 9:00 AM ORDER EDITOR Virtual Visit [facility]rology [facility] [address] 3rd [place] [address] Randy Maradiaga, DO 909 [place] [address] 10/09/2024 1:20 PM ORDER EDITOR Office Visit [facility] [address] [facility] [address] [place] [phone] Danna Cardenas PA-C 6405 [place], [place] [address] 10/15/2024 11:00 AM ORDER EDITOR Office Visit [facility] [address] [place] [address] Denise Woodson APRN VEGETABLE TRIMMER [address] [place], [place] [phone] 10/30/2024 4:00 PM ORDER EDITOR Virtual Visit [facility] [address] [place] [phone] Lisa Zambrano MD [address] [place], [place] [address] 12/29/2024 12:45 PM CDT Office Visit [facility] [address] [place] [address] Ave [address] [phone] Fabi Coates MD [address] [address] 12/29/2024 1:45 PM CDT Office Visit [facility] [address] [place], [place] [address]e Explorer [address] [phone] Fabi Coates MD [address] [address] 06/01/2025 11:15 AM CDT Appointment [facility] [address] [place] [phone] Robin Zepeda MD [address] [place] [address] 06/04/2025 11:00 AM CDT Office Visit [facility] Neurosurgery Clinic [address] 3rd [place] [phone] Robin Zepeda MD [address] [place] [id number] Usha Simon APRN VEGETABLE TRIMMER [address] [place] [address] documented as of this encounter Goals Goal Patient Goal Type Associated Problems Recent Progress Patient-Stated? Author I would like additional resources and support to manage my health and prevent future avoidable ED visits/hospital admissions Care Plan Increased risk of re-admission 40%( 4 3:02 PM ORDER EDITOR) Anastasia Talamantes, RN Note: Barriers: diagnosis of multiple, chronic, complex medical conditions, provider availability - wait time to complete appointments, etc. Strengths: motivated, engaged in care coordination Patient expressed understanding of goal: yes Action steps to achieve this goal: 1. I will follow up with my providers as scheduled/recommended - Pulmonology: TBD - Mental Health weekly - PT, OT and BOTTLE GAUGER, continuing through [facility] [place]: - PCP: 09/18/2024 & 10/15/2024. - Vascular [...] clinic with 24/7 after hours services available. Raw Finish Mill Operator will remain available as needed. documented as of this encounter Visit Diagnoses Not on filedocumented in this encounter Additional Health Concerns Active Problems Noted Date Diagnosed Date Increased risk of re-admission 02/18/2024 Assessment Noted Time PHQ-9 Depression Total Score: 0 09/18/19 12:46 PM ORDER EDITOR documented as of this encounter Care Teams Airworthiness Inspector Relationship Specialty Start Date End Date Winston Villatoro OD [facility] [place] [address] [facility] [address] [place] [address] PCP - Ophthalmology Ophthalmology 02/11/13 Denise Woodson APRN VEGETABLE TRIMMER [address] [place] [address] PCP - General Family Practice 09/21/20 Denise Woodson APRN VEGETABLE TRIMMER [address] [place] [address] Assigned PCP 07/17/20 Usha Simon APRN VEGETABLE TRIMMER [address] [facility] [place] [id number] [address] Nurse Practitioner Neurological Surgery 01/24/24 Dangelo Salinas MD [address] [place] [address] Neurology 01/27/24 Anastasia Stearns, RN Lead Raw Finish Mill Operator 02/06/24 Germaine Lopez, [facility] Community Health Worker Primary Care - CC 02/18/24 Joya Lira RPH [address] [place] [address] Pharmacist Pharmacist 05/25/24 Joya Lira [facility] [address] [place] [address] Assigned MTM Pharmacist 06/08/24 Fabi Coates MD [address] [place] [address] Genetics, Clinical 06/18/24 Danna Cardenas PA-C 6[address] [place] [address] Assigned Heart and Vascular Provider 07/08/24 Arthur Salas LICSW [address] [address] Assigned Behavioral Health Provider 08/08/24 Randy Maradiaga DO [address] [place] [address] Assigned Neuroscience Provider 08/08/24 documented as of this encounter
--- OUTSIDE RECORDS SUMMARY | 2024-09-20 18:06 | XMS_ITS | Encounter Summary ---
Author Organization [place] Address [address] [place] [address] Care Team Providers Care Director Market Research Name Role Phone Winston Villatoro OD Unavailable [phone] Denise Woodson APRN ACCESS DATABASE DEVELOPER Unavailable [phone] Denise Woodson APRN ACCESS DATABASE DEVELOPER Primary Care Provider Usha Simon APRN ACCESS DATABASE DEVELOPER Unavailable + [phone] Dangelo Salinas MD Unavailable Anastasia Stearns RN Unavailable [phone] Germaine Lopez [facility] Unavailable [phone] Joya Lira [facility] Unavailable Joya Lira [facility] Unavailable Fabi Coates MD Unavailable [phone] Danna CardenasC Unavailable [phone] Arthur Salas HEAD WAITRESS Unavailable [phone] Randy Maradiaga DO Unavailable + Reason for Visit * Reason Comments Physical Encounter Details Date Type Department Care Team (Late st Contact Info) Description 09/18/2024 1:00 PM WHIZZER HAND Office Visit [address] [address] Denise WoodsonBARRERA ACCESS DATABASE DEVELOPER [address] [place] [address] Chronic obstructive pulmonary disease without exacerbation (H) (Primary Dx); Acute cough; BPD (bronchopulmonary dysplasia) (H) Social History Tobacco Use Types Packs/Day [...] Never 09/16/2024 How often do you attend restoration or yazdanism serv ices? 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 Not on file Not on file Not on file Not on file Not on file Not on file documented as of this encounter Last Filed Vital Signs Vital Sign Reading Time Taken Comments Blood Pressure 138/88 09/18/2024 12:51 PM WHIZZER HAND Pulse 78 09/18/2024 12:51 PM WHIZZER HAND Temperature 36.8 C (98.3 F) 09/18/2024 12:51 PM WHIZZER HAND Respiratory Rate 12 09/18/2024 12:51 PM WHIZZER HAND Oxygen Saturation 98% 09/18/2024 12:51 PM WHIZZER HAND Inhaled Oxygen Concentration - - Weight 94.8 kg (209 lb) 09/18/2024 12:51 PM WHIZZER HAND Height 172.7 cm (5' 8) 09/18/2024 12:51 PM WHIZZER HAND Body Mass Index 31.78 09/18/2024 12:51 PM WHIZZER HAND documented in this encounter Progress Notes * Denise Woodson, BARRERA ACCESS DATABASE DEVELOPER - 09/18/2024 1:00 PM CST Assessment & Plan Chronic obstructive pulmonary disease without exacerbation (H) Acute cough Symptoms worsening. Imaging negative over the past week. Able to trend WBC now showing more pronounced elevation. Will treat for bacterial etiology. Doxycycline and steroid taper. If symptoms change or worsen she will seek care over the weekend. Otherwise, see me next week. Pt agrees with plan and verbalized understanding. - CBC with platelets and differential; Future - CBC with platelets and differential - doxycycline monohydrate (MONODOX) 100 MG capsule; Take 1 capsule (100 mg) by mouth 2 times daily for 10 days. - predniSONE (DELTASONE) 20 MG tablet; Take 3 tabs by mouth daily x 3 days, then 2 tabs daily x 3 days, then 1 tab daily x 3 days, then 1/2 tab daily x 3 days. BPD (bronchopulmonary dysplasia) (H) We will plan on having her establish with pulmonology at the [facility]. The longitudinal plan of care for the diagnosis(es)/condition(s) as documented were addressed during this visit. Due to the added complexity in care, I will continue to support Alcon in the subsequent management and with ongoing continuity of care. BMI Estimated body mass index is 31.78 kg/m?? as calculated from the following: Height as of this encounter: 1.727 m (5' 8). Weight as of this encounter: 94.8 kg (209 lb). Counseling Appropriate preventive services were addressed with this patient via screening, questionnaire, or discussion as appropriate for fall prevention, nutrition, physical activity, Tobacco-use cessation, social engagement, weight loss and cognition. Checklist reviewing preventive services available has been given to the patient. Reviewed patient's diet, addressing concerns and/or questions. Patient is at risk for social isolation and has been provided with information about the benefit ofsocial connection. Juan M Rondon is a 49 year old, presenting for the following health issues: Physical 09/18/2024 12:40 PM Additional Questions Roomed by Addis Garcia VF 09/18/2024 12:40 PM Patient Reported Additional Medications Patient reports taking the following new medications prednisone 20mg (started 09/15) HPI Aspirated hamburger 09/07/24. [facility] 09/08/24. Irritation and cough continued over the week. 09/13/24 had worsening symptoms and presented to [facility]. 09/15/24 again had worsening symptoms. Presented to [facility]. Repeated CT scans. Nothing found at that time. She was started on prednisone 20mg daily. She has 1 day remaining. She has also been using duonebs at home. She does not feel that either of these have helped. She has not been running a fever but is unsure if she would due to her hx of a stroke. She still feels clammy and cold and hot. She feels she cannot get enough air in her lungs. She feels worse with walking. She denies chest pain. She is eating and drinking. CT scans have shown mild emphysema and mild bronchiolitis. She was previously evaluated at [facility] as a child. Dx with bronchopulmonary dysplasia. She had recurrent episodes of pneumonia as a child. She has continued her breo ellipta inhaler as well. Review of Systems Constitutional, HEENT, cardiovascular, pulmonary, gi and gu systems are negative, except as otherwise noted. Objective BP 138/88 (BP Location: Right arm, Patient Position: Sitting, Cuff Size: Adult Large) Pulse 78 Temp 98.3 ??F (36.8 ??C) (Oral) Resp 12 Ht 1.727 m (5' 8) Wt 94.8 kg (209 lb) LMP 01/07/2006 SpO2 98% BMI 31.78 kg/m?? Body mass index is 31.78 kg/m??. Physical Exam GENERAL: alert and fatigued RESP: lungs clear to auscultation - no rales, rhonchi or wheezes CV: regular rate and rhythm, normal S1 S2, no S3 or S4, no murmur, click or rub, no peripheral edema PSYCH: mentation appears normal, affect normal/bright Results for orders placed or performed in visit on 09/18/24 (from the past 24 hours) CBC with platelets and differential Narrative The following orders were created for panel order CBC with platelets and differential. Procedure Abnormality Status --------- ------ CBC with platelets and d...[[id number]] Abnormal Final result Please view results for these tests on the individual orders. CBC with platelets and differential Result Value Ref Range WBC Count 13.5 (H) 4.0 - 11.0 10e3/uL RBC Count 4.81 3.80 - 5.20 10e6/uL Hemoglobin 14.6 11.7 - 15.7 g/dL Hematocrit 43.6 35.0 - 47.0 % MCV 91 78 - 100 fL MCH 30.4 26.5 - 33.0 pg MCHC 33.5 31.5 - 36.5 g/dL RDW 12.4 10.0 - 15.0 % Platelet Count 279 150 - 450 10e3/uL % Neutrophils 86 % % Lymphocytes 11 % % Monocytes 3 % % Eosinophils 0 % % Basophils 0 % % Immature Granulocytes 0 % Absolute Neutrophils 11.5 (H) 1.6 - 8.3 10e3/uL Absolute Lymphocytes 1.4 0.8 - 5.3 10e3/uL Absolute Monocytes 0.4 0.0 - 1.3 10e3/uL Absolute Eosinophils 0.1 0.0 - 0.7 10e3/uL Absolute Basophils 0.0 0.0 - 0.2 10e3/uL Absolute Immature Granulocytes 0.1 <=0.4 10e3/uL Signed Electronically by: Denise Woodson APRN ACCESS DATABASE DEVELOPER ZER HAND documented in this encounter Plan of Treatment Upcoming Encounters Date Type Department Care Team (Late st Contact Info) Description 09/25/2024 11:00 AM WHIZZER HAND Office Visit [facility] [address] [place] [address] Denise Woodson APRN ACCESS DATABASE DEVELOPER [address] [place] [address] 09/29/2024 9:00 AM WHIZZER HAND Virtual Visit [facility] Neurology [place] [address] [facility] 3rd [place] [phone] Randy Maradiaga, [address] [place], [place] [phone] 10/09/2024 1:20 PM WHIZZER HAND Office Visit [facility] Heart [facility] [address] [facility] [address] [place] [phone] Danna Cardenas PA-C 6[address] [place], [place] [address] 10/15/2024 11:00 AM WHIZZER HAND Office Visit [facility] [address] [place] [phone] Denise Woodson, BARRERA ACCESS DATABASE DEVELOPER [address] [place] [address] 10/30/2024 4:00 PM WHIZZER HAND Virtual Visit [facility] Vascular [facility] [address] [place] [phone] Lisa Zambrano MD [address] [facility] [place], [place] [address] 12/29/2024 12:45 PM CDT Office Visit [facility] 12th Fl[address],[place] [phone] Fabi Coates MD [address] [facility] [address] [place], [place] [address] 12/29/2024 1:45 PM CDT Office Visit [facility] [address] [facility] [address],[place] [phone] Fabi Coates MD [address] [place] [address] [facility] [address] [place], [place] [address] 06/01/2025 11:15 AM CDT Appointment [facility] Imaging [address] [place] [phone] Robin Zepeda MD [address] [place] [address] 06/04/2025 11:00 AM CDT Office Visit [facility] Neuro[facility] [address] [place] [address] 3rd [place] [phone] Robin Zepeda MD [address] [place] [address] Usha Simon APRN ACCESS DATABASE DEVELOPER [address] [address] documented as of this encounter Goals Goal Patient Goal Type Associated Problems Recent Progress Patient-Stated? Author I would like additional resources and support to manage my health and prevent future avoidable ED visits/hospital admissions Care Plan Increased risk of re-admission 40%( 4 3:02 PM WHIZZER HAND) Anastasia Talamantes, RN Note: Barriers: diagnosis of multiple, chronic, complex medical conditions, provider availability - wait time to complete appointments, etc. Strengths: motivated, engaged in care coordination Patient expressed understanding of goal: yes Action steps to achieve this goal: 1. I will follow up with my providers as scheduled/recommended - Pulmonology: TBD - Mental Health weekly - PT, OT and FLYER BUILDER, continuing through [facility]: - PCP: 09/18/2024 & 10/15/2024. - Vascular [...] clinic with 24/7 after hours services available. Chief Port Director will remain available as needed. documented as of this encounter Procedures Procedure Name Priority Date/Time Associated Diagnosis Comments CBC WITH PLATELETS AND DIFFERENTIAL Routine 09/18/2024 1:23 PM WHIZZER HAND Acute cough CBC WITH PLATELETS & DIFFERENTIAL Routine 09/18/2024 1:23 PM WHIZZER HAND Acute cough documented in this encounter Results * (ABNORMAL) CBC with platelets and differential (09/18/2024 1:23 PM WHIZZER HAND) WBC Count 13.5(H) 4.0 - 11.0 10e3/uL 09/18/2024 1:38 PM WHIZZER HAND RM LABORATORY RBC Count 4.81 3.80 - 5.20 10e6/uL 09/18/2024 1:38 PM WHIZZER HAND RM LABORATORY Hemoglobin 14.6 11.7 - 15.7 g/dL 09/18/2024 1:38 PM WHIZZER HAND RM LABORATORY Hematocrit 43.6 35.0 - 47.0 % 09/18/2024 1:38 PM WHIZZER HAND RM LABORATORY MCV 91 78 - 100 fL 09/18/2024 1:38 PM WHIZZER HAND RM LABORATORY MCH 30.4 26.5 - 33.0 pg 09/18/2024 1:38 PM WHIZZER HAND RM LABORATORY MCHC 33.5 31.5 - 36.5 g/dL 09/18/2024 1:38 PM WHIZZER HAND RM LABORATORY RDW 12.4 10.0 - 15.0 % 09/18/2024 1:38 PM WHIZZER HAND RM LABORATORY Platelet Count 279 150 - 450 10e3/uL 09/18/2024 1:38 PM WHIZZER HAND RM LABORATORY % Neutrophils 86 % 09/18/2024 1:38 PM WHIZZER HAND RM LABORATORY % Lymphocytes 11 % 09/18/2024 1:38 PM WHIZZER HAND RM LABORATORY % Monocytes 3 % 09/18/2024 1:38 PM WHIZZER HAND RM LABORATORY % Eosinophils 0 % 09/18/2024 1:38 PM WHIZZER HAND RM LABORATORY % Basophils 0 % 09/18/2024 1:38 PM WHIZZER HAND RM LABORATORY % Immature Granulocytes 0 % 09/18/2024 1:38 PM WHIZZER HAND RM LABORATORY Absolute Neutrophils 11.5(H) 1.6 - 8.3 10e3/uL 09/18/2024 1:38 PM WHIZZER HAND RM LABORATORY Absolute Lymphocytes 1.4 0.8 - 5.3 10e3/uL 09/18/2024 1:38 PM WHIZZER HAND RM LABORATORY Absolute Monocytes 0.4 0.0 - 1.3 10e3/uL 09/18/2024 1:38 PM WHIZZER HAND RM LABORATORY Absolute Eosinophils 0.1 0.0 - 0.7 10e3/uL 09/18/2024 1:38 PM WHIZZER HAND RM LABORATORY Absolute Basophils 0.0 0.0 - 0.2 10e3/uL 09/18/2024 1:38 PM WHIZZER HAND RM LABORATORY Absolute Immature Granulocytes 0.1 <=0.4 10e3/uL 09/18/2024 1:38 PM WHIZZER HAND RM LABORATORY Blood BLOOD SPECIMEN / Unknown Venipuncture / Unknown 09/18/2024 1:23 PM WHIZZER HAND 09/18/2024 1:31 PM WHIZZER HAND us Denise Woodson APRN ACCESS DATABASE DEVELOPER LAB - BLOOD ORDERABLES Final Result RM LABORATORY [facility] [address] [facility] Lab (no room number, 1st floor of clinic) PRIMO VELASQUEZ [id number], [facility] documented in this encounter Visit Diagnoses Diagnosis Chronic obstructive pulmonary disease without exacerbation (H)- Primary Acute cough BPD (bronchopulmonary dysplasia) (H) Chronic respiratory disease arising in the period documented in this encounter Additional Health Concerns Active Problems Noted Date Diagnosed Date Increased risk of re-admission 02/18/2024 Assessment Noted Time PHQ-9 Depression Total Score: 0 09/18/19 25 12:46 PM WHIZZER HAND documented as of this encounter Care Teams Director Market Research Relationship Specialty Start Date End Date Winston Villatoro OD [facility] [place] [address] [place] [address] PCP - Ophthalmology Ophthalmology 02/11/13 Denise Woodson APRN ACCESS DATABASE DEVELOPER [address] [facility] [place] [address] PCP - General Family Practice 09/21/20 Denise Woodson APRN ACCESS DATABASE DEVELOPER [address] [place] [address] Assigned PCP 07/17/20 Usha Simon APRN ACCESS DATABASE DEVELOPER [address] [facility] [address] Nurse Practitioner Neurological Surgery 01/24/24 Dangelo Salinas MD [address] [place], [place] [phone] Neurology 01/27/24 Anastasia Stearns, RN Lead Chief Port Director 02/06/24 Germaine Lopez, W Community Health Worker Primary Care - CC 02/18/24 Joya Lira RPH [address] [place] [address] Pharmacist Pharmacist 05/25/24 Joya Lira RPH [address] [place] [address] Assigned MTM Pharmacist 06/08/24 Fabi Coates MD [address] [facility] [address] [place] [address] Genetics, Clinical 06/18/24 Danna Cardenas PA-C [address]405 [place] [address] Assigned Heart and Vascular Provider 07/08/24 Arthru Salas HEAD WAITRESS [address] [place] [address] Assigned Behavioral Health Provider 08/08/24 Randy Maradiaga DO 909 [place] [address] Assigned Neuroscience Provider 08/08/24 documented as of this encounter
--- OUTSIDE RECORDS SUMMARY | 2024-09-20 18:06 | XMS_ITS | Encounter Summary ---
Author Organization [place] Address [address] [place] [address] Care Team Providers Care Remedy Developer Name Role Phone Winston Villatoro OD Unavailable [phone] Denise Woodson APRN PHYSICAL SECURITY ENGINEER Unavailable [phone] Denise Woodson APRN PHYSICAL SECURITY ENGINEER Primary Care Provider Usha Simon APRN PHYSICAL SECURITY ENGINEER Unavailable + [phone] Dangelo Salinas MD Unavailable Anastasia Stearns RN Unavailable [phone] Germaine Lopez [facility] Unavailable [phone] Joya Lira [facility] Unavailable Joya Lira [facility] Unavailable [phone] Fabi Coates MD Unavailable [phone] Danna Cardenas PA-C Unavailable [phone] Arthur Salas KNITTING MACHINE FIXER Unavailable [phone] Randy Maradiaga DO Unavailable + Encounter Details Date Type Department Care Team (Late st Contact Info) Description 09/14/2024 [facility] [address] [place] [address] Denise Woodson APRN PHYSICAL SECURITY ENGINEER [address] [place] [address] Social History Tobacco Use Types Packs/Day Years [...] How often do you attend worship or bahai serv ices? 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 If request is due to worsening symptoms, needs to be seen sooner than Saturday. Otherwise, this request can be discussed at upcoming visit. Tay Garnica MD [facility] 09/14/2024 BLOWER * Telephone Encounter - Aliya Mcguire RN - 09/14/2024 11:32 AM CST Pt has pending appointment with Saturday with PCP but is asking about pulm referral in the meantime so she can try to get an appointment scheduled. Will route to PCP to inquire if appropriate to place referral now. Aliya Mcguire RN on 09/14/2024 at 11:33 AM BLOWER documented in this encounter Plan of Treatment Upcoming Encounters Date Type Department Care Team (Late st Contact Info) Description 09/25/2024 11:00 AM TUBE BLOWER Office Visit [facility] [address] [place] [phone] Denise Woodson, [facility]A [facility] [address] [place], [place] [id number] 09/29/2024 9:00 AM TUBE BLOWER Virtual Visit [facility] Neurology [facility] [address] [phone] Randy Maradiaga, [address] [address] 10/09/2024 1:20 PM TUBE BLOWER Office Visit [facility] Heart [facility] [address] [facility] [address] [place] [phone] Danna Cardenas PA-C [address] [place], [place] [address] 10/15/2024 11:00 AM TUBE BLOWER Office Visit [facility] [address] [place] [phone] Denise Woodson, PROFESSIONAL DRIVER PHYSICAL SECURITY ENGINEER [address] [place] [address] 10/30/2024 4:00 PM TUBE BLOWER Virtual Visit [facility] Vascular [facility] [place] [address] [place] [phone] Lisa Zambrano MD [address] [place] [address] 12/29/2024 12:45 PM CDT Office Visit [facility] [address] [place], [place] [address]e Explorer [address] [phone] Fabi Coates MD [address] [place] [address] 12/29/2024 1:45 PM CDT Office Visit [facility] [address] [place], [place] [address] [address] [phone] Fabi Coates MD [address] [place] [address] 06/01/2025 11:15 AM CDT Appointment [facility] [address] [employer] [address] [place] [phone] Robin Zepeda MD [address] [place] [address] 06/04/2025 11:00 AM CDT Office Visit [facility] Neurosurgery [address] 3rd [place] [phone] Robin Zepeda MD [address] [place] [address] Usha Simon APRN [facility] [address] [facility] [id number] [address] documented as of this encounter Goals Goal Patient Goal Type Associated Problems Recent Progress Patient-Stated? Author I would like additional resources and support to manage my health and prevent future avoidable ED visits/hospital admissions Care Plan Increased risk of re-admission 40%( 3:02 PM TUBE BLOWER) No Anastasia Stearns, RN Note: Barriers: diagnosis of multiple, chronic, complex medical conditions, provider availability - wait time to complete appointments, etc. Strengths: motivated, engaged in care coordination Patient expressed understanding of goal: yes Action steps to achieve this goal: 1. I will follow up with my providers as scheduled/recommended - Pulmonology: TBD - Mental Health weekly - PT, OT and FISHER QUAHOG, continuing through [facility] [place]: - PCP: 09/18/2024 & 10/15/2024. - Vascular [...] clinic with 24/7 after hours services available. Size Cutter will remain available as needed. documented as of this encounter Visit Diagnoses Not on filedocumented in this encounter Additional Health Concerns Active Problems Noted Date Diagnosed Date Increased risk of re-admission 02/18/2024 Assessment Noted Time PHQ-9 Depression Total Score: 5 08/03/20 24 12:49 PM TUBE BLOWER documented as of this encounter Care Teams Remedy Developer Relationship Specialty Start Date End Date Winston Villatoro, OD [facility] [place] [address] [place] [address] PCP - Ophthalmology Ophthalmology 02/11/13 Denise Woodson APRN PHYSICAL SECURITY ENGINEER [address] [place] [address] PCP - General Family Practice 09/21/20 Denise Woodson APRN PHYSICAL SECURITY ENGINEER [address] [place] [place] [address] Assigned PCP 07/17/20 Usha Simon APRN PHYSICAL SECURITY ENGINEER [address] [place], [place] [address], [place] [address] Nurse Practitioner Neurological Surgery 01/24/24 Dangelo Salinas MD [address] [place], [place] [id number] Neurology 01/27/24 Anastasia Stearns, RN Lead Size Cutter 02/06/24 Germaine Lopez, W Community Health Worker Primary Care - CC 02/18/24 Joya Lira RPH [address] [place] [address] Pharmacist Pharmacist 05/25/24 Joya Lira RPH [address] [place] [address] Assigned MTM Pharmacist 06/08/24 Fabi Coates MD [address] [place] [address] 75 [place] [address] Genetics, Clinical 06/18/24 Danna Cardenas PA-C [address] [place] [address] Assigned Heart and Vascular Provider 07/08/24 Arthur Salas [facility] [address] [address] Assigned Behavioral Health Provider 08/08/24 Randy Maradiaga DO 9 [place] [address] Assigned Neuroscience Provider 08/08/24 documented as of this encounter
--- OUTSIDE RECORDS SUMMARY | 2024-09-20 18:06 | XMS_ITS | Encounter Summary ---
Author Organization [place] Address [address] [place] [address] Care Team Providers Care Calciner Operator Name Role Phone Winston Villatoro OD Unavailable [phone] Denise Woodson APRN DIE TRIMMER Unavailable [phone] Denise Woodson APRN DIE TRIMMER Primary Care Provider Usha Simon APRN DIE TRIMMER Unavailable [phone] Dangelo Salinas MD Unavailable Anastasia Stearns RN Unavailable [phone] Germaine Lopez [facility] Unavailable Joya Lira [facility] Unavailable [phone] Joya Lira [facility] Unavailable Fabi Coates MD Unavailable [phone] Danna CardenasC Unavailable [phone] Arthur Salas STUDENT SUPPORT ADVISOR Unavailable [phone] Randy Maradiaga DO Unavailable + Reason for Visit * Reason Onset Date Comments Erroneous encounter-disregard 09/18/2024 Encounter Details Date Type Department Care Team (Late st Contact Info) Description 09/18/2024 Telephone [facility] [address] [place] [phone] Denise Woodson APRN DIE TRIMMER [address] [place] [id number] Erroneous encounter-disregard Social History Tobacco Use Types Packs/Day Years [...] Never 09/16/2024 How often do you attend evangelical or lutheran serv ices? 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 Not on file Not on file Not on file Not on file Not on file Not on file Not on file documented as of this encounter Plan of Treatment Upcoming Encounters Date Type Department Care Team (Late st Contact Info) Description 09/25/2024 11:00 AM ADULT LIVE IN CAREGIVER Office Visit [facility] [address] [place] [phone] Denise Woodson, BARRERA DIE TRIMMER [address] [place], [place] [phone] 09/29/2024 9:00 AM ADULT LIVE IN CAREGIVER Virtual Visit [facility] Neurology [facility] [address] [facility] 3rd [place] [phone] Randy Maradiaga, [address] [address] 10/09/2024 1:20 PM ADULT LIVE IN CAREGIVER Office Visit [facility] Heart [facility] [address] [facility] [address] [place] [phone] Danna Cardenas PA-C [address] [place], [place] [address] 10/15/2024 11:00 AM ADULT LIVE IN CAREGIVER Office Visit [facility] [address] [place] [phone] Denise Woodson APRN DIE TRIMMER [address] [place] [address] 10/30/2024 4:00 PM ADULT LIVE IN CAREGIVER Virtual Visit [facility] [place] [address] [place] [phone] Lisa Zambrano MD [address] [place] [address] 12/29/2024 12:45 PM CDT Office Visit [facility] [address] [facility] [address],[place] [phone] Fabi Coates MD [address] [facility] [address] [place], [place] [address] 12/29/2024 1:45 PM CDT Office Visit [facility] [address] [facility] [address],[place] [phone] Fabi Coates MD [address] [facility] [address] [place] [address] 06/01/2025 11:15 AM CDT Appointment [facility] Imaging [address] [address] [place] [phone] Robin Zepeda MD [address] [place] [address] 06/04/2025 11:00 AM CDT Office Visit [facility] Neurosurgery [address] 3rd [place] [phone] Robin Zepeda MD [address] [place] [address] Usha Simon APRN [address] [address] documented as of this encounter Goals Goal Patient Goal Type Associated Problems Recent Progress Patient-Stated? Author I would like additional resources and support to manage my health and prevent future avoidable ED visits/hospital admissions Care Plan Increased risk of re-admission 40%( 4 3:02 PM ADULT LIVE IN CAREGIVER) Anastasia Talamantes, RN Note: Barriers: diagnosis of multiple, chronic, complex medical conditions, provider availability - wait time to complete appointments, etc. Strengths: motivated, engaged in care coordination Patient expressed understanding of goal: yes Action steps to achieve this goal: 1. 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 - Vascular [...] clinic with 24/7 after hours services available. Sheet Metal Shop Helper will remain available as needed. documented as of this encounter Visit Diagnoses Not on filedocumented in this encounter Additional Health Concerns Active Problems Noted Date Diagnosed Date Increased risk of re-admission 02/18/2024 Assessment Noted Time PHQ-9 Depression Total Score: 0 09/18/19 12:46 PM ADULT LIVE IN CAREGIVER documented as of this encounter Care Teams Calciner Operator Relationship Specialty Start Date End Date Winston Villatoro OD [facility] [address] [facility] [address] [place] [address] PCP - Ophthalmology Ophthalmology 02/11/13 Denise Woodson APRN DIE TRIMMER [address] [place] [address] PCP - General Family Practice 09/21/20 Denise Woodson APRN DIE TRIMMER [address] [place] [address] Assigned PCP 07/17/20 Usha Simon APRN DIE TRIMMER [address] [facility], [place] [address] Nurse Practitioner Neurological Surgery 01/24/24 Dangelo Salinas MD [address] [place] [id number] Neurology 01/27/24 Anastasia Stearns, RN Lead Sheet Metal Shop Helper 02/06/24 Germaine Lopez, W Community Health Worker Primary Care - CC 02/18/24 Joya Lira [facility] [address] [place] [address] Pharmacist Pharmacist 05/25/24 Joya Lira [facility] [address] [place] [address] Assigned MTM Pharmacist 06/08/24 Fabi Coates MD [address] [facility] [address] [place], [place] [address] Genetics, Clinical 06/18/24 Danna Cardenas PA-C [address] [place] [address] Assigned Heart and Vascular Provider 07/08/24 Arthur Salas STUDENT SUPPORT ADVISOR [address] [place] [address] Assigned Behavioral Health Provider 08/08/24 Randy Maradiaga DO [address] [place] [address] Assigned Neuroscience Provider 08/08/24 documented as of this encounter
--- OUTSIDE RECORDS SUMMARY | 2024-09-20 18:06 | XMS_ITS ---
Care Plan Created on: September 20, 2024 Alcon Zamora : 1975 Sex: Female Author Organization [place] Address [address] [place] [address] Care Team Providers Care Transfer Specialist Name Role Phone Winston Villatoro OD Unavailable [phone] Denise Woodson APRN WASHTUB WORKER HELPER Unavailable [phone] Denise Woodson APRN WASHTUB WORKER HELPER Primary Care Provider Usha Simon APRN WASHTUB WORKER HELPER Unavailable Dangelo Salinas MD Unavailable Anastasia Stearns RN Unavailable Germaine Lopez [facility] Unavailable Joya Lira [facility] Unavailable [phone] Joya Lira [facility] Unavailable Fabi Coates MD Unavailable [phone] Danna CardenasC Unavailable [phone] Arthur Salas DISEASE AND INSECT CONTROL BOSS Unavailable [phone] Randy Maradiaga DO Unavailable + Active Problems Problem Noted Date Diagnosed Date [...] risk of re-admission 40%( 4 3:02 PM SURVEILLANCE SENSOR OFFICER) Anastasia Talamantes, RN Note: Barriers: diagnosis of multiple, chronic, complex medical conditions, provider availability - wait time to complete appointments, etc. Strengths: motivated, engaged in care coordination Patient expressed understanding of goal: yes Action steps to achieve this goal: 1. 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 - Vascular [...] clinic with 24/ after hours services available. Substation Technician will remain available as needed. Interventions Care [...]
--- OUTSIDE RECORDS SUMMARY | 2024-09-20 18:06 | XMS_ITS | Referral Summary ---
Author Organization [employer] Address [address] [place] [address] Care Team Providers Care Mosaic Technician Name Role Phone Winston Villatoro OD Unavailable [phone] Denise Woodson APRN DEVELOPMENT PLANNER Unavailable [phone] Denise Woodson APRN DEVELOPMENT PLANNER Primary Care Provider Usha Simon APRN DEVELOPMENT PLANNER Unavailable + [phone] Dangelo Salinas MD Unavailable Anastasia Stearns RN Unavailable Germaine Lopez CH Unavailable [phone] Joya Lira [facility] Unavailable Joya Lira [facility] Unavailable [phone] Fabi Coates MD Unavailable [phone] Danna Cardenas PA-C Unavailable [phone] Arthur Salas MACHINE LEATHER TRIMMER Unavailable [phone] Randy Maradiaga DO Unavailable + Encounters Date Type Department Care Team Description 09/18/[address] [address] Dneise Woodson APRN CNP Erroneous encounter-disregard 09/18/2024 Travel 09/18/2024 1:00 PM MAINTAINER CENTRAL OFFICE Office Visit [facility] [address] [place] [phone] Denise Woodson APRN CNP Chronic obstructive pulmonary disease without exacerbation (H) (Primary Dx); Acute cough; BPD (bronchopulmonary dysplasia) (H) 09/16/2024 Travel 09/14/2024 MyC Medical Advice [facility] [address] [place] [phone] Denise Woodson APRN CNP 09/13/2024 Travel 09/13/2024 10:54 AM MAINTAINER CENTRAL OFFICE - 09/13/2024 4:42 PM MAINTAINER CENTRAL OFFICE Emergency [facility] [address] [place] [phone] Sameer Castillo, COPD with acute exacerbation (H); Upper respiratory tract infection, unspecified type Discharge Disposition: Home or Self Care 09/11/2024 Travel 09/11/2024 8:00 AM MAINTAINER CENTRAL OFFICE Ancillary Procedure [facility] [address] [facility] [address] [place] [address] Randy Maradiaga, Seizure-like activity (H); History of seizure 2024 Travel 09/04/[address] [facility] [address] [place] [phone] Qing Copeland 09/04/2024 Travel 09/04/2024 11:00 AM MAINTAINER CENTRAL OFFICE [facility] [address] [place] [phone] Denise Woodson APRN CNP Anxiety (Primary Dx); History of stroke 09/03/2024 Travel 09/02/[address] 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 [address] [address] Randy Maradiaga DO 08/11/[address] [facility] [address] [place] [address] Lorrie Salase, MACHINE LEATHER TRIMMER 08/10/2024 3:00 PM MAINTAINER CENTRAL OFFICE Virtual Visit 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); Dural arteriovenous fistula; Cerebrovascular accident (CVA), unspecified mechanism (H) 08/07/2024 Travel 08/07/2024 1:00 PM MAINTAINER CENTRAL OFFICE - 08/07/2024 11:59 PM MAINTAINER CENTRAL OFFICE Hospital Encounter [facility] [address] [place] [address] [address] [place] [phone] Danna Cardenas PA-C Chest pain, unspecified type Discharge Disposition: Home or Self Care 08/06/2024 [facility] [address] [place] [phone] Denise Woodson APRN CNP 08/04/2024 Travel 08/04/2024 12:00 PM MAINTAINER CENTRAL OFFICE Virtual Visit [facility] [address] [place] [address] Arthur Salas, MACHINE LEATHER TRIMMER MONAE (generalized anxiety disorder) (Primary Dx); MDD (major depressive disorder), recurrent episode, moderate (H) 08/04/2024 3:30 PM MAINTAINER CENTRAL OFFICE Virtual Visit [facility] [address] [place] [phone] Denise Woodson APRN CNP Chronic obstructive pulmonary disease without exacerbation (H) (Primary Dx); Anxiety; History of seizure; Severe episode of recurrent major depressive disorder, without psychotic features (H); Cerebrovascular accident (CVA), unspecified mechanism (H) 08/01/[address] [facility] [address] [address] Randy Maradiaga DO 07/30/2024 8:30 AM MAINTAINER CENTRAL OFFICE Virtual Visit [facility] [address] [address] Randy Maradiaga DO Seizure-like activity (H); History of seizure 07/29/2024 MyC Medical Advice [facility] [address] [place] [phone] Denise Woodson APRN DEVELOPMENT PLANNER Forms (Patient/[employer] - R... 07/22/2024 Travel 07/22/2024 11:15 AM MAINTAINER CENTRAL OFFICE Lab [facility] [address] [place] [phone] Screening for HIV (human immunodeficiency virus) (Primary Dx); Need for hepatitis C screening test; Cerebrovascular accident (CVA), unspecified mechanism (H); Muscle weakness (generalized) 07/20/2024 12:00 PM MAINTAINER CENTRAL OFFICE Virtual Visit [facility] [address] [place] [address] Denise Woodson, BARRERA DEVELOPMENT PLANNER History of seizure (Primary Dx); Cerebrovascular accident (CVA), unspecified mechanism (H); Muscle weakness (generalized); Thyroid antibody positive 07/18/2024 MyC Medical Advice [facility] [address] [place] [phone] Denise Woodson APRN DEVELOPMENT PLANNER 07/16/[address] [facility] Heart [address] [phone] Telma Guajardo RN 07/16/[address] [facility] Addiction [address] [place] [address] Sinyigaya, Speciose, MACHINE LEATHER TRIMMER 07/16/[address] [facility] [address] [place] [address] Sinyigaya, Speciose, MACHINE LEATHER TRIMMER 07/16/2024 11:00 AM CDT Virtual Visit [facility] Addiction [address] [place] [address] Sinyigaya, Speciose, MACHINE LEATHER TRIMMER MONAE (generalized anxiety disorder) (Primary Dx); Anxiety; MDD (major depressive disorder), recurrent episode, moderate (H) 07/15/[address] [facility] [address] [phone] Robin Zepeda MD 07/14/[address] [facility] [address] [phone] None Appointment (Seizure-like activity (H) R sided numbness/tinglinfg/) 07/12/2024 10:32 PM CDT - 07/13/2024 6:19 PM CDT Emergency [facility] [address] [place] [phone] Rocio Ann MD Maresh, Andrew, DO Neshangi, Srivani, MD Anxiety (Primary Dx); Right sided numbness; Cerebrovascular accident (CVA), unspecified mechanism (H); Seizure-like activity (H) Discharge Disposition: Home or Self Care 07/12/2024 Travel 07/12/2024 Telephone [facility] Services - Neuroscience Service Line [address] [place] [phone] Sameer Tracy MD 07/07/[address] [facility] Neurology [address] [phone] Liliane Cobos 07/07/[address] [facility] Neurology [address] [address] Randy Maradiaga DO Clinic Care Coordination - Follow-up 07/07/[address] [facility] Neurosurgery [address] [phone] Bryan Farley CMA 07/02/[address] [facility] Neurology [address] [address] Randy Maradiaga DO *-*INCOMING RECORDS*-* 07/02/2024 7:30 AM CDT Virtual Visit [facility] Neurology [address] [phone] Randy Maradiaga DO Trigger point of neck (Primary Dx); History of seizure 06/29/[address] [facility] Vascular [facility] [address] [place] [phone] Lisa Zambrano MD 06/28/2024 MyC Medical Advice [facility] [address] [place] [address] Denise Woodson APRN DEVELOPMENT PLANNER 06/26/2024 Orders Only (auto-released) [place] [address] [facility] [address] [place] [phone] Danna Cardenas PA-C Tachycardia 06/26/2024 Travel 06/26/2024 2:40 PM CDT Office Visit [place] [address] [facility] [address] [place] [phone] Danna Cardenas PA-C Tachycardia (Primary Dx); Chest pain, unspecified type 06/23/2024 Travel from Last 3 Months Allergies Active [...] / dyspnea or wheezing 1 Inhaler 3 020 Active cetirizine (ZYRTEC) 10 MG tablet Take 10 mg by mouth at bedtime. Active psyllium (METAMUCIL) 28.3 % packet Take 1 packet by mouth daily Active senna-docusate (SENOKOT-S/HEATHER COLACE) 8.6-50 MG tabletIndicatio ns:Other constipation Take 2 tablets by mouth 2 times daily as needed for constipation 024 Active Additional Information Patient taking differently: 1 [...] for moderate to severe pain. 10 tablet Active Lidocaine (LIDOCARE) 4 % PatchIndication s:Pain [...] into the lungs daily. 3 each 1 Active levETIRAcetam (KEPPRA) 750 MG tabletIndicatio ns:History of seizure Take 1/2 of 750 mg tab BID 120 tablet 2 Active LORazepam (ATIVAN) 1 MG tabletIndicatio ns:History of seizure Take 1/2-1 tablet daily as needed for onset of dizziness. 10 tablet Active citalopram (CELEXA) 10 MG tabletIndicatio ns:Anxiety Take 0.5 tablets (5 mg) by mouth daily. 45 tablet 1 12/20/2 024 Active albuterol (PROAIR HFA/PROVENTIL HFA/VENTOLIN HFA) [...] tab daily x 3 days. 20 tablet Active atorvastatin (LIPITOR) 10 MG tabletIndicatio ns:Cerebrovascu [...] Name Administration Dates Next Due COVID-19 Vaccine ([employer]) 11/20/2020 Flu, Unspecified 07/11/2017,07/02/2014 HepB 03/03/2012,11/07/2011,10/04/2011 Hepatitis [...] Never 09/16/2024 How often do you attend congregation or orthodoxy serv ices? 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 Not on file Not on file Not on file Not on file Not on file Not on file Not on file Last Filed Vital Signs Vital Sign Reading Time Taken Comments Blood Pressure 138/88 09/18/2024 12:51 PM MAINTAINER CENTRAL OFFICE Pulse 78 09/18/2024 12:51 PM MAINTAINER CENTRAL OFFICE Temperature 36.8 C (98.3 F) 09/18/2024 12:51 PM MAINTAINER CENTRAL OFFICE Respiratory Rate 12 09/18/2024 12:51 PM MAINTAINER CENTRAL OFFICE Oxygen Saturation 98% 09/18/2024 12:51 PM MAINTAINER CENTRAL OFFICE Inhaled Oxygen Concentration - - Weight 94.8 kg (209 lb) 09/18/2024 12:51 PM MAINTAINER CENTRAL OFFICE Height 172.7 cm (5' 8) 09/18/2024 12:51 PM MAINTAINER CENTRAL OFFICE Body Mass Index 31.78 09/18/2024 12:51 PM MAINTAINER CENTRAL OFFICE Plan of Treatment Upcoming Encounters Date Type Department Care Team (Late st Contact Info) Description 09/25/2024 11:00 AM MAINTAINER CENTRAL OFFICE Office Visit [facility] [address] [place] [phone] Denise Woodson APRN DEVELOPMENT PLANNER [address] [place], [place] [phone] 09/29/2024 9:00 AM MAINTAINER CENTRAL OFFICE Virtual Visit [facility] Neurology [address] [phone] Randy Maradiaga, [address] [address] 10/09/2024 1:20 PM MAINTAINER CENTRAL OFFICE Office Visit [facility] Heart [address] [place] [phone] Danna Cardenas PA-C [address] [place], [place] [phone] 10/15/2024 11:00 AM MAINTAINER CENTRAL OFFICE Office Visit [facility] [address] [place] [phone] Denise Woodson APRN DEVELOPMENT PLANNER [address] [place], [place] [phone] 10/30/2024 4:00 PM MAINTAINER CENTRAL OFFICE Virtual Visit [facility] Vascular [facility] [address] [facility] [place] [address] [place] [phone] Lisa Zambrano MD [address] [place] [address] 12/29/2024 12:45 PM CDT Office Visit [facility] [address] [place] [phone] Fabi Coates MD [address] [place] [address] 12/29/2024 1:45 PM CDT Office Visit [facility] [address] [place] [phone] Fabi Coates MD [address] [place] [address] 06/01/2025 11:[address] [facility] [address] [place] [phone] oRbin Zepeda MD [address] [place] [address] 06/04/2025 11:00 AM CDT Office Visit [facility] Neurosurgery [address] 3rd [place] [phone] Robin Zepeda MD [address] [place] [phone] Usha Simon APRN [address] [phone] Goals Goal Patient Goal Type Associated Problems Recent Progress Patient-Stated? Author I would like additional resources and support to manage my health and prevent future avoidable ED visits/hospital admissions Care Plan Increased risk of re-admission 40%( 4 3:02 PM MAINTAINER CENTRAL OFFICE) Anastasia Talamantes, RN Note: Barriers: diagnosis of multiple, chronic, complex medical conditions, provider availability - wait time to complete appointments, etc. Strengths: motivated, engaged in care coordination Patient expressed understanding of goal: yes Action steps to achieve this goal: 1. I will follow up with my providers as scheduled/recommended - Pulmonology: TBD - Mental Health weekly - PT, OT and DIAGNOSTIC TECHNOLOGIST, continuing through [facility]: - PCP: 09/18/2024 & 10/15/2024. - Vascular [...] clinic with 24/7 after hours services available. Lead Furnace Operator will remain available as needed. Procedures Procedure Name Priority Date/Time Associated Diagnosis Comments CBC WITH PLATELETS & DIFFERENTIAL Routine 09/18/2024 1:23 PM MAINTAINER CENTRAL OFFICE Acute cough CBC WITH PLATELETS AND DIFFERENTIAL Routine 09/18/2024 1:23 PM MAINTAINER CENTRAL OFFICE Acute cough XRAY IMAGING - HIM SCAN 09/15/20 24 12:00 AM MAINTAINER CENTRAL OFFICE CT CHEST PULMONARY EMBOLISM W CONTRAST STAT 09/13/2024 12:59 PM MAINTAINER CENTRAL OFFICE INFLUENZA A/B, RSV AND SARS-COV2 PCR STAT 09/13/2024 11:49 AM MAINTAINER CENTRAL OFFICE XR CHEST 2 VIEWS STAT 09/13/2024 11:25 AM MAINTAINER CENTRAL OFFICE CBC WITH PLATELETS & DIFFERENTIAL STAT 09/13/2024 11:06 AM MAINTAINER CENTRAL OFFICE D DIMER QUANTITATIVE STAT 09/13/2024 11:06 AM MAINTAINER CENTRAL OFFICE TROPONIN T, HIGH SENSITIVITY Add-On 09/13/2024 11:06 AM MAINTAINER CENTRAL OFFICE EXTRA BLUE TOP TUBE STAT 09/13/2024 11:06 AM MAINTAINER CENTRAL OFFICE CBC WITH PLATELETS AND DIFFERENTIAL STAT 09/13/2024 11:06 AM MAINTAINER CENTRAL OFFICE EXTRA TUBE STAT 09/13/2024 11:06 AM MAINTAINER CENTRAL OFFICE COMPREHENSIVE METABOLIC PANEL STAT 09/13/2024 11:06 AM MAINTAINER CENTRAL OFFICE EKG 12-LEAD, TRACING ONLY STAT 09/13/2024 10:53 AM MAINTAINER CENTRAL OFFICE EEG VIDEO 2-12 HRS CONTINUOUS MONITORING Routine 09/11/2024 11:00 AM MAINTAINER CENTRAL OFFICE Seizure-like activity (H) History of seizure XRAY IMAGING - HIM SCAN 09/08/20 12:00 AM MAINTAINER CENTRAL OFFICE AL PSYCL/NRPSYCL TST TECH 2+ TST EA ADDL 30 MIN Routine 08/19/2024 4:15 PM MAINTAINER CENTRAL OFFICE 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 Cerebral infarction, unspecified mechanism (H) AL PSYCL/NRPSYCL TST TECH 2+ TST 1ST 30 MIN Routine 08/19/2024 4:15 PM MAINTAINER CENTRAL OFFICE 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 Cerebral infarction, unspecified mechanism (H) AL NEUROPSYCHOLOGICAL TST EVAL PHYS/QHP EA ADDL HR Routine 08/19/2024 4:15 PM MAINTAINER CENTRAL OFFICE 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 Cerebral infarction, unspecified mechanism (H) AL NEUROPSYCHOLOGICAL TST EVAL PHYS/QHP 1ST HOUR Routine 08/19/2024 4:15 PM MAINTAINER CENTRAL OFFICE 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 Cerebral infarction, unspecified mechanism (H) CTA ANGIOGRAM CORONARY ARTERY Routine 08/07/2024 4:31 PM MAINTAINER CENTRAL OFFICE Chest pain, unspecified type RADIOLOGIST CONSULT FOR CARDIOLOGY Routine 08/07/2024 4:31 PM MAINTAINER CENTRAL OFFICE Chest pain, unspecified type HEPATITIS C SCREEN REFLEX TO HCV RNA QUANT AND GENOTYPE Routine 07/22/2024 11:17 AM MAINTAINER CENTRAL OFFICE Need for hepatitis C screening test HIV ANTIGEN ANTIBODY COMBO Routine 07/22/2024 11:17 AM MAINTAINER CENTRAL OFFICE Screening for HIV (human immunodeficiency virus) T3 TOTAL Routine 07/22/2024 11:17 AM MAINTAINER CENTRAL OFFICE Cerebrovascular accident (CVA), unspecified mechanism (H) Muscle weakness (generalized) VITAMIN D DEFICIENCY SCREENING Routine 07/22/2024 11:17 AM MAINTAINER CENTRAL OFFICE Cerebrovascular accident (CVA), unspecified mechanism (H) Muscle weakness (generalized) VITAMIN B12 Routine 07/22/2024 11:17 AM MAINTAINER CENTRAL OFFICE Cerebrovascular accident (CVA), unspecified mechanism (H) Muscle weakness (generalized) T4 FREE Routine 07/22/2024 11:17 AM MAINTAINER CENTRAL OFFICE Cerebrovascular accident (CVA), unspecified mechanism (H) Muscle weakness (generalized) THYROID PEROXIDASE ANTIBODY Routine 07/22/2024 11:17 AM MAINTAINER CENTRAL OFFICE Cerebrovascular accident (CVA), unspecified mechanism (H) Muscle weakness (generalized) TSH Routine 07/22/2024 11:17 AM MAINTAINER CENTRAL OFFICE Cerebrovascular accident (CVA), unspecified mechanism (H) Muscle [...] VASCULAR - HIM SCAN 12:00 AM CDT EKG 12-LEAD COMPLETE W/READ - CLINICS Routine 06/26/2024 Chest pain, unspecified type MA SCREENING BILATERAL W/ MAT Routine 04/25/2022 5:03 PM CDT Visit for screening mammogram from Last 3 Months or Most Recently Relevant to Health Maintenance Results * (ABNORMAL) CBC with platelets and differential (09/18/2024 1:23 PM MAINTAINER CENTRAL OFFICE) Only the most recent of3 resultswithin the time period is included. WBC Count 13.5(H) 4.0 - 11.0 10e3/uL 09/18/2024 1:38 PM MAINTAINER CENTRAL OFFICE RM LABORATORY RBC Count 4.81 3.80 - 5.20 10e6/uL 09/18/2024 1:38 PM MAINTAINER CENTRAL OFFICE RM LABORATORY Hemoglobin 14.6 11.7 - 15.7 g/dL 09/18/2024 1:38 PM MAINTAINER CENTRAL OFFICE RM LABORATORY Hematocrit 43.6 35.0 - 47.0 % 09/18/2024 1:38 PM MAINTAINER CENTRAL OFFICE RM LABORATORY MCV 91 78 - 100 fL 09/18/2024 1:38 PM MAINTAINER CENTRAL OFFICE LABORATORY MCH 30.4 26.5 - 33.0 pg 09/18/2024 1:38 PM MAINTAINER CENTRAL OFFICE LABORATORY MCHC 33.5 31.5 - 36.5 g/dL 09/18/2024 1:38 PM MAINTAINER CENTRAL OFFICE LABORATORY RDW 12.4 10.0 - 15.0 % 09/18/2024 1:38 PM MAINTAINER CENTRAL OFFICE LABORATORY Platelet Count 279 150 - 450 10e3/uL 09/18/2024 1:38 PM MAINTAINER CENTRAL OFFICE RM LABORATORY % Neutrophils 86 % 09/18/2024 1:38 PM MAINTAINER CENTRAL OFFICE LABORATORY % Lymphocytes 11 % 09/18/2024 1:38 PM MAINTAINER CENTRAL OFFICE RM LABORATORY % Monocytes 3 % 09/18/2024 1:38 PM MAINTAINER CENTRAL OFFICE RM LABORATORY % Eosinophils 0 % 09/18/2024 1:38 PM MAINTAINER CENTRAL OFFICE LABORATORY % Basophils 0 % 09/18/2024 1:38 PM MAINTAINER CENTRAL OFFICE LABORATORY % Immature Granulocytes 0 % 09/18/2024 1:38 PM MAINTAINER CENTRAL OFFICE LABORATORY Absolute Neutrophils 11.5(H) 1.6 - 8.3 10e3/uL 09/18/2024 1:38 PM MAINTAINER CENTRAL OFFICE LABORATORY Absolute Lymphocytes 1.4 0.8 - 5.3 10e3/uL 09/18/2024 1:38 PM MAINTAINER CENTRAL OFFICE LABORATORY Absolute Monocytes 0.4 0.0 - 1.3 10e3/uL 09/18/2024 1:38 PM MAINTAINER CENTRAL OFFICE LABORATORY Absolute Eosinophils 0.1 0.0 - 0.7 10e3/uL 09/18/2024 1:38 PM [facility] Absolute Basophils 0.0 0.0 - 0.2 10e3/uL 09/18/2024 1:38 PM [facility] Absolute Immature Granulocytes 0.1 <=0.4 10e3/uL 09/18/2024 1:38 PM [facility] Blood BLOOD SPECIMEN / Unknown Venipuncture / Unknown 09/18/2024 1:23 PM MAINTAINER CENTRAL OFFICE 09/18/2024 1:31 PM MAINTAINER CENTRAL OFFICE us Denise Woodson PATROL MOTHER DEVELOPMENT PLANNER LAB - BLOOD ORDERABLES Final Result LABORATORY [facility] [address] [facility] Lab (no room number, 1st floor of clinic) [place] [address], [facility] * Xray Imaging - HIM Scan (09/15/2024 12:00 AM MAINTAINER CENTRAL OFFICE) Only the most recent of2 resultswithin the time period is included. Anatomical Region Laterality Modality Other 09/15/2024 us Provider Outside IMG DIAGNOSTIC IMAGING ORDERABL ES Final Result * CT Chest Pulmonary Embolism w Contrast (09/13/2024 12:59 PM MAINTAINER CENTRAL OFFICE) Anatomical Region Laterality Modality Chest, SUBRAD CT BODY, UMP CT CHEST Computed Tomography 09/13/2024 12:5 9 PM MAINTAINER CENTRAL OFFICE Impressions 09/13/2024 2:23 PM MAINTAINER CENTRAL OFFICE IMPRESSION: 1. No pulmonary artery embolism. 2. Mild emphysema and mild bronchiolitis with bronchial wall thickening and pulmonary air trapping. No pneumonic infiltrate or pleural effusion. Narrative 09/13/2024 2:23 PM MAINTAINER CENTRAL OFFICE EXAM: CT CHEST PULMONARY EMBOLISM W CONTRAST LOCATION: [facility] DATE: 09/13/2024 INDICATION: Chest pain and shortness [...] CT CHEST PULMONARY EMBOLISM W CONTRAST LOCATION: [facility] DATE: 09/13/2024 INDICATION: Chest pain and shortness [...] infiltrate or pleural effusion. Sameer Castillo DO [facility] [place] ORDERABLES Final Result * Influenza A/B, RSV and SARS-CoV2 PCR (COVID-19) Nasopharyngeal (09/13/2024 11:49 AM MAINTAINER CENTRAL OFFICE) Influenza A PCR Negative Negative 09/13/2024 12:31 PM MAINTAINER CENTRAL OFFICE LABORATORY Influenza B PCR Negative Negative 09/13/2024 12:31 PM MAINTAINER CENTRAL OFFICE LABORATORY RSV PCR Negative Negative 09/13/2024 12:31 PM MAINTAINER CENTRAL OFFICE LABORATORY SARS CoV2 PCR Negative Negative 09/13/2024 12:31 PM MAINTAINER CENTRAL OFFICE LABORATORY Comment:NEGATIVE: SARS-CoV-2 (COVID-19) RNA not detected, presumed negative. Swab NASOPHARYNGEAL STRUCTURE / Unknown Non-blood Collection / Unknown 09/13/2024 11:49 AM MAINTAINER CENTRAL OFFICE 09/13/2024 11:52 AM MAINTAINER CENTRAL OFFICE Narrative LABORATORY - 09/13/2024 12:31 PM MAINTAINER CENTRAL OFFICE Testing was performed using the Xpert Xpress CoV2/Flu/RSV Assay on the Bee Shield GeneXpert Instrument. This test should be ordered [...] management. This test was validated by the [facility]. These laboratories are certified under the Clinical Laboratory Improvement Amendments of 1988 (CLIA-88) as qualified to perfom high complexity laboratory testing. us Sameer Castillo DO LAB - MICRO GENERA L ORDERABLES Final Result LABORATORY [facility] [address] 1st floor, Room [address]B [place] [address], [facility] [phone] * Chest XR, PA & LAT (09/13/2024 11:25 AM MAINTAINER CENTRAL OFFICE) Anatomical Region Laterality Modality Chest Digital Radiogra phy 09/13/2024 11:2 5 AM MAINTAINER CENTRAL OFFICE Impressions 09/13/2024 12:27 PM MAINTAINER CENTRAL OFFICE IMPRESSION: Pulmonary hyperinflation consistent with known emphysema. PFO closure device. Mild bibasilar opacities likely reflect atelectasis. Stable biapical scarring. No pleural effusion. Stable heart size. Narrative 09/13/2024 12:27 PM MAINTAINER CENTRAL OFFICE EXAM: XR CHEST 2 VIEWS LOCATION: [facility] DATE: 09/13/2024 INDICATION: chst pain and sob aftr aspirationj COMPARISON: CT 03/18/2024 Procedure Note Dionicio Ennis MD - 09/13/2024 EXAM: XR CHEST 2 VIEWS LOCATION: [facility] DATE: 09/13/2024 INDICATION: chst pain and sob aftr aspirationj COMPARISON: CT 03/18/2024 IMPRESSION: Pulmonary hyperinflation consistent with known emphysema. PFOclosure device. Mild bibasilar opacities likely reflect atelectasis.Stable biapical scarring. No pleural effusion. Stable heart size. Sameer Clay'Neill DO IMG DIAGNOSTIC TAYLA GING ORDERABLES Final Result * Extra Blue Top Tube (09/13/2024 11:06 AM MAINTAINER CENTRAL OFFICE) Hold Specimen x 09/13/2024 11:46 AM MAINTAINER CENTRAL OFFICE LABORATORY Blood VENOUS LINE / Unknown Venipuncture / Unknown 09/13/2024 11:06 AM MAINTAINER CENTRAL OFFICE 09/13/2024 11:15 AM MAINTAINER CENTRAL OFFICE Sameer Clay'Neill DO LAB - BLOOD ORDERA BLES Final Result LABORATORY [facility] [address] 1[address] floor, [address] [place] [address], [place] [phone] * Troponin T, High Sensitivity (09/13/2024 11:06 AM MAINTAINER CENTRAL OFFICE) [facility] Troponin T, High Sensitivity <6 <=14 ng/L 09/13/2024 11:47 AM MAINTAINER CENTRAL OFFICE LABORATORY Comment: Either a High Sensitivity Troponin [...] Unknown Venipuncture / Unknown 09/13/2024 11:06 AM MAINTAINER CENTRAL OFFICE 09/13/2024 11:15 AM MAINTAINER CENTRAL OFFICE Sameer Castellanos [place] DO LAB - BLOOD ORDERA BLES Final Result LABORATORY [facility] [address] floor, [address] [place] [address], [facility] [phone] * (ABNORMAL) D dimer quantitative (09/13/2024 11:06 AM MAINTAINER CENTRAL OFFICE) Pathologist [facility] D-Dimer Quantitative 0.82(H) 0.00 - 0.50 ug/mL FEU 09/13/2024 11:54 AM MAINTAINER CENTRAL OFFICE LABORATORY Blood VENOUS LINE / Unknown Venipuncture / Unknown 09/13/2024 11:06 AM MAINTAINER CENTRAL OFFICE 09/13/2024 11:15 AM MAINTAINER CENTRAL OFFICE Narrative LABORATORY - 09/13/2024 11:54 AM MAINTAINER CENTRAL OFFICE This D-dimer assay is intended for use in conjunction with a clinical pretest probability assessment model to exclude pulmonary embolism (PE) and deep venous thrombosis (DVT) in outpatients suspected of PE or DVT. The cut-off value is 0.50 ug/mL FEU. Sameer Castillo DO LAB - BLOOD ORDERA BLES Final Result Performing Organization Address City/[facility]/ZIP Co de Phone Number LABORATORY [facility] [address] 1[address] floor, [address] [place] [address], [facility] [phone] * (ABNORMAL) Comprehensive metabolic panel (09/13/2024 11:06 AM MAINTAINER CENTRAL OFFICE) Only the most recent of2 resultswithin the time period is included. Pathologist [facility] Sodium 142 135 - 145 mmol/L 09/13/2024 11:47 AM [facility] LABORATORY Potassium 4.6 3.4 - 5.3 mmol/L 09/13/2024 11:47 AM [facility] LABORATORY Carbon Dioxide (CO2) 29 22 - 29 mmol/L 09/13/2024 11:47 AM [facility] LABORAT[facility] Anion Gap 10 7 - 15 mmol/L 09/13/2024 11:47 AM [facility] Urea Nitrogen 14.5 6.0 - 20.0 mg/dL 09/13/2024 11:47 AM [facility]OR[facility]ORY Creatinine 0.82 0.51 - 0.95 mg/dL 09/13/2024 11:47 AM [facility] LABOR[facility] GFR Estimate 88 >60 mL/min/1.7 3m2 09/13/2024 11:47 AM [facility] LABORATORY Comment:eGFR calculated usin 2020 CKD-EPI equation. Calcium 10.1 8.8 - 10.4 mg/dL 09/13/2024 11:47 AM [facility] LABORATORY Comment:Reference intervals for this test were updated on 03/31/2024 to reflect our healthy population more accurately. There may be differences in the flagging of prior results with similar values performed with this method. Those prior results can be interpreted in the context of the updated reference intervals. Chloride 103 98 - 107 mmol/L 09/13/2024 11:47 AM [facility] LABORATORY Glucose 105(H) 70 - 99 mg/dL 09/13/2024 11:47 AM [facility] LABOR[facility] Alkaline Phosphatase 117 40 - 150 U/L 09/13/2024 11:47 AM [facility] AST 28 0 - 45 U/L 09/13/2024 11:47 AM [facility] ALT 27 0 - 50 U/L 09/13/2024 11:47 AM [facility] Protein Total 7.9 6.4 - 8.3 g/dL 09/13/2024 11:47 AM [facility] Albumin 4.4 3.5 - 5.2 g/dL 09/13/2024 11:47 AM [facility] Bilirubin Total 0.9 <=1.2 mg/dL 09/13/2024 11:47 AM [facility] LABORATORY Blood VENOUS LINE / Unknown Venipuncture / Unknown 09/13/2024 11:06 AM [facility] 09/13/2024 11:15 AM MAINTAINER CENTRAL OFFICE us Sameer Castillo DO LAB - BLOOD ORDERA BLES Final Result LABORATORY [facility] [address] floor, [address] [place] [address], [place] [phone] * EKG 12 lead (09/13/2024 10:53 AM MAINTAINER CENTRAL OFFICE) Systolic Blood Pressure mmHg RADIOLOGY RESULTS Diastolic Blood Pressure mmHg RADIOLOGY RESULTS Ventricular Rate 88 BPM RAD IOLOGY RESULTS Atrial Rate 88 BPM RADIOLOG Y RESULTS AL Interval 148 ms RADIOLOG Y RESULTS QRS Duration 78 ms RADIOLO GY RESULTS QT 316 ms RADIOLOGY RESULTS QTc 382 ms RADIOLOGY RESULTS P [place] 62 degrees RADIOLOGY RESULTS R AXIS 49 degrees RADIOLOGY RESULTS T [place] -12 degrees RADIOLOGY RESULTS Interpretation ECG Sinus rhythm Possible Left atrial enlargement T wave abnormality, consider inferolateral ischemia Abnormal ECG When compared with ECG of 10-May-2024 11:25, T wave inversion more evident in Inferior leads T wave inversion now evident in Anterior leads Confirmed by GENERATED REPORT, COMPUTER ([id number]), editor at large Felicita Pettit ([id number]) on 09/13/2024 12:08:04 PM RADIOLOGY RESULTS 09/13/2024 10:5 3 AM MAINTAINER CENTRAL OFFICE 09/13/2024 12:08 PM MAINTAINER CENTRAL OFFICE us Tran Qureshi MD ECG ORDERABLES Edited R esult - Final RADIOLOGY RESULTS * EEG Video 2-12 hrs Continuous Monitoring (09/11/2024 11:00 AM MAINTAINER CENTRAL OFFICE) Narrative [facility] - 09/13/2024 10:50 PM MAINTAINER CENTRAL OFFICE VIDEO EEG DATE: 09/11/2024 VIDEO EEG LOG: [id number] VIDEO EEG #: 1 VIDEO EEG SOURCE FILE DURATION: 02 [...] written and reviewed by Cecile Mayo MD us Randy Maradiaga DO IMG EEG ORDERABLES Final Result [facility] * CTA Angiogram coronary artery (08/07/2024 4:31 PM MAINTAINER CENTRAL OFFICE) Anatomical Region Laterality Modality Cardio, SUBRAD CT BODY, UMP CT CHEST, RAD CT Computed Tomography Impressions 08/07/2024 4:43 PM MAINTAINER CENTRAL OFFICE IMPRESSION: 1. Normal coronary anatomy with no [...] noncardiac findings that will follow separately. SERGEI BYNUM MD Narrative 08/07/2024 4:43 PM MAINTAINER CENTRAL OFFICE Procedure: CTA ANGIOGRAM CORONARY ARTERY Examination Date: [...] Images were reconstructed and analyzed on a orderTopia workstation. Scan protocol was optimized to minimize radiation exposure. The total radiation exposure was calculated to be 405 DLP, and 6.31 mSv. Procedure Note Ip, Sergei Mooney MD - 08/07/2024 Procedure: CTA ANGIOGRAM CORONARY [...] Images were reconstructed and analyzed on a orderTopia workstation. Scan protocol was optimized to minimize [...] noncardiac findings that will follow separately. SERGEI BYNUM MD Project [id number] PA-C IM CT ORDERABLES Final Resu lt * Radiologist Consult For Cardiology (08/07/2024 4:31 PM MAINTAINER CENTRAL OFFICE) Anatomical Region Laterality Modality Computed Tomogra phy Impressions 08/10/2024 4:16 PM MAINTAINER CENTRAL OFFICE IMPRESSION: Pectus excavatum. Mosaic attenuation of the lungs suggests possible air trapping. MARLO FAULKNER MD Narrative 08/10/2024 4:16 PM MAINTAINER CENTRAL OFFICE RADIOLOGIST CONSULT FOR CARDIOLOGY 08/07/2024 4:31 PM HISTORY: Chest pain, unspecified type. COMPARISON: None. Procedure Note Marlo Faulkner MD - 08/10/2024 RADIOLOGIST CONSULT FOR CARDIOLOGY 08/07/2024 4:31 PM HISTORY: Chest pain, unspecified type. COMPARISON: None. IMPRESSION: Pectus excavatum. Mosaic attenuation of the lungs suggests possible air trapping. MARLO FAULKNER MD Project [email or web address] PA-C IM DIAGNOSTIC IMAGING ORDER NASRIN Final Result * HIV Antigen Antibody Combo (07/22/2024 11:17 AM MAINTAINER CENTRAL OFFICE) Pathologist [facility] HIV Antigen Antibody Combo Nonreactive Nonreactive 07/23/2024 2:55 AM MAINTAINER CENTRAL OFFICE U LABORATORY Comment:Negative HIV-1 p24 a ntigen and [...] Unknown Venipuncture / Unknown 07/22/2024 11:17 AM MAINTAINER CENTRAL OFFICE 07/22/2024 11:17 AM MAINTAINER CENTRAL OFFICE Denise Woodson APRN [facility] LAB - BLOOD ORDERABLES Final Result Performing Organization Address [facility] Co de Phone Number LABORATORY [facility] [address] [place] [address], [facility] [address] * Hepatitis C Screen Reflex to HCV RNA Quant and Genotype (07/22/2024 11:17 AM MAINTAINER CENTRAL OFFICE) Pathologist [facility] Hepatitis C Antibody Nonreactive Nonreactive 07/23/2024 10:25 AM MAINTAINER CENTRAL OFFICE U LABORATORY Comment:A nonreactive screen ing test result [...] Unknown Venipuncture / Unknown 07/22/2024 11:17 AM MAINTAINER CENTRAL OFFICE 07/22/2024 11:17 AM MAINTAINER CENTRAL OFFICE Denise Woodson APRN [facility] LAB - BLOOD ORDERABLES Final Result Performing Organization Address [facility] Co de Phone Number LABORATORY [facility] [address] [place] [address], [address] * Vitamin D Deficiency (07/22/2024 11:17 AM MAINTAINER CENTRAL OFFICE) Pathologist [facility] Vitamin D, Total (25-Hydroxy) 30 20 - 50 ng/mL 07/23/2024 10:41 AM MAINTAINER CENTRAL OFFICE [facility] LABORATORY Comment:optimum levels Blood BLOOD SPECIMEN / Unknown Venipuncture / Unknown 07/22/2024 11:17 AM MAINTAINER CENTRAL OFFICE 07/22/2024 11:17 AM MAINTAINER CENTRAL OFFICE Narrative [facility] LABORATORY - 07/23/2024 10:41 AM MAINTAINER CENTRAL OFFICE Season, race, dietary intake, and treatment affect the concentration of 36-jrbmnkg-Yuloivq D. Values may decrease during winter months and increase during summer months. Vitamin D determination is routinely performed by an immunoassay specific for 25 hydroxyvitamin D3. If an individual is on vitamin D2(ergocalciferol) supplementation, please specify 25 [place] vitamin D2 and D3 level determination by LCMSMS test VITD23. Denise Woodson APRN [facility] LAB - BLOOD ORDERABLES Final Result LABORATORY [facility] [address], [address] [id number] * (ABNORMAL) TSH (07/22/2024 11:17 AM MAINTAINER CENTRAL OFFICE) [facility] TSH 8.19(H) 0.30 - 4.20 uIU/mL 07/23/2024 10:41 AM MAINTAINER CENTRAL OFFICE [facility] LABORATORY Blood BLOOD SPECIMEN / Unknown Venipuncture / Unknown 07/22/2024 11:17 AM MAINTAINER CENTRAL OFFICE 07/22/2024 11:17 AM MAINTAINER CENTRAL OFFICE Denise Woodson APRN [facility] LAB - BLOOD ORDERABLES Final Result LABORATORY [facility] [address], [address] [phone] * (ABNORMAL) Thyroid peroxidase antibody (07/22/2024 11:17 AM MAINTAINER CENTRAL OFFICE) [facility] Thyroid Peroxidase Antibody 2,881(H) <35 IU/mL 07/23/2024 10:53 AM MAINTAINER CENTRAL OFFICE [facility]ORE/PROT/END O Blood BLOOD SPECIMEN / Unknown Venipuncture / Unknown 07/22/2024 11:17 AM MAINTAINER CENTRAL OFFICE 07/22/2024 11:17 AM MAINTAINER CENTRAL OFFICE Denise Woodson APRN [employer]OPMENT [employer]NER LAB - BLOOD ORDERABLES Final Result [facility] CORE/PROT/ENDO [facility] Core/Prot/Endo [address] [facility], [address] * T4, free (07/22/2024 11:17 AM MAINTAINER CENTRAL OFFICE) Only the most recent of2 resultswithin the time period is included. Free T4 1.27 0.90 - 1.70 ng/dL 07/23/2024 10:41 AM MAINTAINER CENTRAL OFFICE [facility] LABORATORY Blood BLOOD SPECIMEN / Unknown Venipuncture / Unknown 07/22/2024 11:17 AM MAINTAINER CENTRAL OFFICE 07/22/2024 11:17 AM MAINTAINER CENTRAL OFFICE Denise Woodson APRN [employer]ELOPMENT PLANNER LAB - BLOOD ORDERABLES Final Result Performing Organization Address City/[facility]/ZIP Co de Phone Number UU LABORATORY [facility] [place] [facility] [address], [address] [phone] * T3, total (07/22/2024 11:17 AM MAINTAINER CENTRAL OFFICE) Pathologist [facility] T3 Total 131 85 - 202 ng/dL 07/23/2024 10:41 AM MAINTAINER CENTRAL OFFICE [facility] LABORATORY Blood BLOOD SPECIMEN / Unknown Venipuncture / Unknown 07/22/2024 11:17 AM MAINTAINER CENTRAL OFFICE 07/22/2024 11:17 AM MAINTAINER CENTRAL OFFICE Denise Woodson APRN DEVELOPMENT PLANNER LAB - BLOOD ORDERABLES Final Result [facility] LABORATORY [facility] [place] [address], [address] [phone] * Vitamin B12 (07/22/2024 11:17 AM MAINTAINER CENTRAL OFFICE) Vitamin B12 456 232 - 1,245 pg/mL 07/23/2024 10:41 AM MAINTAINER CENTRAL OFFICE [facility] LABORATORY Blood BLOOD SPECIMEN / Unknown Venipuncture / Unknown 07/22/2024 11:17 AM MAINTAINER CENTRAL OFFICE 07/22/2024 11:17 AM MAINTAINER CENTRAL OFFICE us Denise Woodson PATROL MOTHER DEVELOPMENT PLANNER LAB - BLOOD ORDERABLES Final Result U LABORATORY [facility] [place] [facility] [address], [address] [phone] * ZIO PATCH MAIL OUT (07/16/2024 11:43 [...] PM CDT Narrative 07/13/2024 4:29 PM CDT [id number]^EVER^AZRA^Analy [facility] Echocardiography Laboratory [facility] [place] [address] Name: CHRISTOPHER TY : 1975 Study Date: 07/13/2024 03:16 PM Age: 48 yrs Gender: Female Patient Location: [facility] Reason For Study: TIA Ordering Physician: AZRA CURTIS Performed By: Janna Fenton BSA: 2.1 m2 Height: 68 in Weight: 214 lb HR: 71 BP: 138/92 mmHg Procedure Complete Portable Echo Adult. Definity ([facility] #[id number]) given intravenously. Contrast Definity. Technically difficult study.Extremely [...] Procedure Note Joe Matos MD - 07/13/2024 [id number] [facility] [id number]^EVER^AZRA^Analy [facility] Echocardiography Laboratory [address] [place] [address] Name: CHRISTOPHER TY : 1975 Study Date: 07/13/2024 03:16 PM Age: 48 yrs Gender: Female Patient Location: [facility] Reason For Study: TIA Ordering Physician: AZRA CURTIS Performed By: Janna Fenton BSA: 2.1 m2 Height: 68 in Weight: 214 lb HR: 71 BP: 138/92 mmHg Procedure Complete Portable Echo Adult. Definity ([facility] #[id number]) givenintravenously. Contrast Definity. Technically difficult study.Extremely difficultacoustic [...] 219 mg/dL Very High: >= 220 mg/dL Result [facility] Azra Curtis PA-C LAB - BLOOD ORDERABLES F inal Result [facility]U LABORATORY [facility] [place] [address] [facility], [address] [place] [address], [facility] LABORATORY [facility] Lab [address] floor, [address] [place] [address], [facility] [phone] * Hemoglobin A1c (07/13/2024 12:40 PM CDT) Estimated Average Glucose 111 <117 mg/dL 07/13/2024 1:16 PM CDT LABORATORY Hemoglobin A1C 5.5 <5.7 % 07/13/2024 1:16 PM CDT LABORATORY Comment: Normal <5.7% Prediabetes 5.7-6.4% Diabetes 6.5% or higher Note: Adopted from ADA consensus guidelines. Blood STRUCTURE OF LEFT WRIST REGION / Unknown Venipuncture / Unknown 07/13/2024 12:40 PM CDT 07/13/2024 12:58 PM CDT Result [facility] Azra Curtis PA-C LAB - BLOOD ORDERABLES F inal Result LABORATORY [facility] Lab [address], [address] [place] [address], [facility] [phone] * Glucose by meter (07/13/2024 7:56 AM CDT) GLUCOSE BY METER POCT 93 70 - 99 mg/dL 07/13/2024 8:03 AM CDT LABORATORY POC Blood, Capillary BLOOD SPECIMEN / Unknown 07/13/2024 7:56 AM CDT 07/13/2024 8:03 AM CDT Morgan Morales MD LAB - BEAKER POCT Final Resu lt LABORATORY POC [facility] Lab [address] floor, [address] [place] [address], [facility] * MR Brain w/o Contrast (07/13/2024 1:09 [...] LAB - BLOOD ORDERABLES Final Result LABORATORY [facility] Core Lab [address], [address] * (ABNORMAL) TSH with free T4 reflex (07/12/2024 11:28 PM CDT) TSH 9.38(H) 0.30 - 4.20 uIU/mL 07/13/2024 11:17 AM CDT U LABORATORY Blood BLOOD SPECIMEN / Unknown Venipuncture / Unknown 07/12/2024 11:28 PM CDT 07/12/2024 11:35 PM CDT us Azra Curtis PA-C LAB - BLOOD ORDERABLES F inal Result Performing Organization Address City/[facility]/ZIP Co de Phone Number LABORATORY [facility] [place] [facility] [address], [address] * Lab Result - HIM Scan [...] JEVON HOWELL MD us Denise Woodson APRN DEVELOPMENT PLANNER IMG MAMMOGRAPHY ORDERAB LES Final Result from Last 3 Months or Most Recently Relevant to Health Maintenance Additional Health Concerns Active Problems Noted Date Diagnosed Date Increased risk of re-admission 02/18/2024 Insurance [employer] * Guarantor: Candy Adame Account Type Relation to Patient Date of Phone Billing Address 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 [address] , [address] [place] [address] * Guarantor: Christopher Ty Account Type Relation to Patient Date of Phone Billing Address Medication Therapy Self 1975 [address] [place] [address] [employer] Advance Directives For more information, please contact: [phone] * Full Code (Latest Code Status on [...] patie nt/ legal decision maker Care Teams Mosaic Technician Relationship Specialty Start Date End Date Winston Villatoro OD [facility] [employer] [address] [facility] [address] [place] [address] PCP - Ophthalmology Ophthalmology 02/11/13 Denise Woodson APRN [employer] [id number] [id number] PCP - General Family Practice 09/21/20 Denise Woodson APRN [employer]NER [address] [id number] Assigned PCP 07/17/20 Usha Simon APRN [employer]ELOPMENT PL[employer]NER [address] [facility] [id number] [place] [address] Nurse Practitioner Neurological Surgery 01/24/24 Dangelo Salinas MD [address] [place] [address] Neurology 01/27/24 Anastasia Stearns, RN Lead Lead Furnace Operator 02/06/24 Germaine Lopez, W Community Health Worker Primary Care - CC 02/18/24 Joya Lira Joleen [address] [place], [place] [phone] Pharmacist Pharmacist 05/25/24 Joya Lira [facility] [address] [place], [place] [phone] Assigned MTM Pharmacist 06/08/24 Fabi Coates MD [address] [facility] [address] [place] [address] Genetics, Clinical 06/18/24 Danna Cardenas PA-C [address] [place] [address] Assigned Heart and Vascular Provider 07/08/24 Arthur Salas LICSW [address] [place] [address] Assigned Behavioral Health Provider 08/08/24 Randy Maradiaga DO [address] [place] [address] Assigned Neuroscience Provider 08/08/24
--- OUTSIDE RECORDS SUMMARY | 2024-09-20 18:07 | XMS_ITS | Encounter Summary ---
Author Organization [facility] Address [address] [place] [address] Care Team Providers Care Catering Server Name Role Phone Winston Villatoro OD Unavailable [phone] Denise Woodson APRN STRUCTURAL MANAGER Unavailable [phone] Denise Woodson APRN STRUCTURAL MANAGER Primary Care Provider Usha Simon APRN STRUCTURAL MANAGER Unavailable [phone] Dangelo Salinas MD Unavailable Anastasia Stearns RN Unavailable Germaine Lopez [facility] Unavailable Joya Lira [facility] Unavailable Joya Lira [facility] Unavailable [phone] Fabi Coates MD Unavailable [phone] Danna CardenasC Unavailable [phone] Arthur Salas CYLINDER SANDER OPERATOR Unavailable [phone] Randy Maradiaga DO Unavailable + Encounter Details Date Type Department Care Team (Latest Contact Info) Description 09/11/2024 8:00 AM CRUISE GUIDE Ancillary Procedure [facility] [address] [facility] [address] [place] [address] Randy Maradiaga, [address] [place] [address] Seizure-like activity (H); History of seizure Social History Tobacco Use [...] How often do you attend jainism or tenriism serv ices? 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 Not on file Not on file Not on file Not on file Not on file Not on file Not on file documented as of this encounter Plan of Treatment Upcoming Encounters Date Type Department Care Team (Late st Contact Info) Description 09/25/2024 11:00 AM CRUISE GUIDE Office Visit [facility] [address] [place] [phone] Denise Woodson, BARRERA STRUCTURAL MANAGER [address] [place] [address] 09/29/2024 9:00 AM CRUISE GUIDE Virtual Visit [facility] Neurology [facility] [address] [facility] 3rd [place] [phone] Randy Maradiaga, [address] [address] 10/09/2024 1:20 PM CRUISE GUIDE Office Visit [facility] Heart [facility] [address] [facility] [address] [place] [phone] Danna Cardenas PA-C [address] [place], [place] [phone] 10/15/2024 11:00 AM CRUISE GUIDE Office Visit [facility] [address] [place] [phone] Denise Woodson, BARRERA STRUCTURAL MANAGER [address] [place] [address] 10/30/2024 4:00 PM CRUISE GUIDE Virtual Visit [facility] V[facility] [place] [address] [place] [phone] Lisa Zambrano MD [address] [place] [id number] 12/29/2024 12:45 PM CDT Office Visit [facility] [address] [facility] [address],[place] [phone] Fabi Coates MD [address] [facility] [address] [place], [place] [id number] 12/29/2024 1:45 PM CDT Office Visit [facility] [address] [facility] [address] [phone] Fabi Coates MD [address] [facility] [address] [place] [address] 06/01/2025 11:15 AM CDT Appointment [facility] Imaging [address] [place] [phone] Robin Zepeda MD [address] [place] [address] 06/04/2025 11:00 AM CDT Office Visit [facility] Neurosurgery [address] 3rd [place] [phone] Robin Zepeda MD [address] [place] [address] Usha Simon APRN [address] [address] documented as of this encounter Goals Goal Patient Goal Type Associated Problems Recent Progress Patient-Stated? Author I would like additional resources and support to manage my health and prevent future avoidable ED visits/hospital admissions Care Plan Increased risk of re-admission 40%( 4 3:02 PM CRUISE GUIDE) No Anastasia Stearns, RN Note: Barriers: diagnosis of multiple, chronic, complex medical conditions, provider availability - wait time to complete appointments, etc. Strengths: motivated, engaged in care coordination Patient expressed understanding of goal: yes Action steps to achieve this goal: 1. I will follow up with my providers as scheduled/recommended - Pulmonology: TBD - Mental Health weekly - PT, OT and CIVIL ENGINEER HELPER, continuing through [facility]: - PCP: 09/18/2024 & 10/15/2024. - Vascular [...] clinic with 08/04 after hours services available. Lens Mounter will remain available as needed. documented as of this encounter Procedures Procedure Name Priority Date/Time Associated Diagnosis Comments EEG VIDEO 2-12 HRS CONTINUOUS MONITORING Routine 09/11/2024 11:00 AM CRUISE GUIDE Seizure-like activity (H) History of seizure documented in this encounter Results * EEG Video 2-12 hrs Continuous Monitoring (09/11/2024 11:00 AM CRUISE GUIDE) Narrative [facility] - 09/13/2024 10:50 PM CRUISE GUIDE VIDEO EEG DATE: 09/11/2024 VIDEO EEG LOG: [id number] VIDEO EEG DAY#: 1 VIDEO EEG SOURCE [...] DO IMG EEG ORDERABLES Final Result [facility] documented in this encounter Visit Diagnoses Diagnosis Seizure-like activity (H) Other convulsions History of seizure documented in this encounter Additional Health Concerns Active Problems Noted Date Diagnosed Date Increased risk of re-admission 02/18/2024 Assessment Noted Time PHQ-9 Depression Total Score: 5 08/03/20 24 12:49 PM CRUISE GUIDE documented as of this encounter Care Teams Catering Server Relationship Specialty Start Date End Date Winston Villatoro OD [facility] [address] [facility] [address] [place] [address] PCP - Ophthalmology Ophthalmology 02/11/13 Denise Woodson APRN STRUCTURAL MANAGER [address] [place] [address] PCP - General Family Practice 09/21/20 Denise Woodson APRN STRUCTURAL MANAGER [address] [place] [address] Assigned PCP 07/17/20 Usha Simon APRN STRUCTURAL MANAGER [address] [facility] [place] [address] Nurse Practitioner Neurological Surgery 01/24/24 Dangelo Salinas MD [address] [place] [address] Neurology 01/27/24 Anastasia Stearns, RN Lead Lens Mounter 02/06/24 Germaine Lopez, W Community Health Worker Primary Care - CC 02/18/24 Joya Lira [facility] [address] [place] [address] Pharmacist Pharmacist 05/25/24 Joya Lira [facility] [address] [place] [address] Assigned MTM Pharmacist 06/08/24 Fabi Coates MD [address] [place] [id number] Genetics, Clinical 06/18/24 Danna Cardenas PA-C [address] [place] [address] Assigned Heart and Vascular Provider 07/08/24 Arthur Salas CYLINDER SANDER OPERATOR [address] [place] [address] Assigned Behavioral Health Provider 08/08/24 Randy Maradiaga DO [address] [place] [address] Assigned Neuroscience Provider 08/08/24 documented as of this encounter
--- OUTSIDE RECORDS SUMMARY | 2024-09-20 18:07 | XMS_ITS | Encounter Summary ---
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 Active Problems Noted Date Diagnosed Date Increased risk of re-admission 02/18/2024 Assessment Noted Time PHQ-9 Depression Total Score: 5 08/03/20 24 12:49 PM BUSINESS PROCESS CONSULTANT documented as of this encounter Care Teams Alcohol Law Enforcement Agent Relationship Specialty Start Date End Date Winston Villatoro OD [facility] [place] [address] [place] [address] PCP - Ophthalmology Ophthalmology 02/11/13 Denise Woodson APRN TIRE FABRICATOR [address] [place] [address] PCP - General Family Practice 09/21/20 Denise Woodson APRN TIRE FABRICATOR [address] [place] [address] Assigned PCP 07/17/20 Usha Simon APRN TIRE FABRICATOR [address] [facility] [id number] [address] Nurse Practitioner Neurological Surgery 01/24/24 Dangelo Salinas MD [address] [place] [address] Neurology 01/27/24 Anastasia Stearns, RN Lead Para Operator 02/06/24 Germaine Lopez, [facility] Community Health Worker Primary Care - CC 02/18/24 Joya Lira RPH [address] [address] Pharmacist Pharmacist 05/25/24 Joya Lira Joleen [address] [place] [address] Assigned MTM Pharmacist 06/08/24 Fabi Coates MD [address] [place] [address] 75 [place] [address] Genetics, Clinical 06/18/24 Danna Cardenas PA-C [facility] [place] [address] Assigned Heart and Vascular Provider 07/08/24 Arthur Salas LICSW [address] [address] Assigned Behavioral Health Provider 08/08/24 Randy Maradiaga DO [address] [place] [address] Assigned Neuroscience Provider 08/08/24 documented as of this encounter
--- OUTSIDE RECORDS SUMMARY | 2024-09-20 18:07 | XMS_ITS | Encounter Summary ---
Author Organization [facility] Address [address] [place] [address] Care Team Providers Care Rougher Machine Operator Name Role Phone Winston Villatoro OD Unavailable [phone] Denise Woodson APRN CUSTOM DRESSMAKER Unavailable [phone] Denise Woodson APRN CUSTOM DRESSMAKER Primary Care Provider Uhsa Simon APRN CUSTOM DRESSMAKER Unavailable [phone] Dangelo Salinas MD Unavailable Anastasia Stearns RN Unavailable Germaine Lopez [facility] Unavailable Joya Lira [facility] Unavailable [phone] Joya Lira [facility] Unavailable Fabi Coates MD Unavailable [phone] Danna CardenasC Unavailable [phone] Arthur Salas [facility] Unavailable [phone] Randy Maradiaga DO Unavailable + Encounter Details Date Type Department Care Team (Latest Contact Info) Description 09/03/2024 Travel Social History Tobacco Use Types Packs/Day [...] How often do you attend anabaptism or gnosticism serv ices? Never 02/28/2024 Do [...] Answer Date Recorded PHQ-2 Score 2 08/04/2024 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 on file Not on file Not on file Not on file Not on file Not on file Not on file documented as of this encounter Plan of Treatment Upcoming Encounters Date Type Department Care Team (Late st Contact Info) Description 09/25/2024 11:00 AM STRAW HAT PRESSER Office Visit [facility] [address] [place] [phone] Denise Woodson APRN [facility] [address] [place] [address] 09/29/2024 9:00 AM STRAW HAT PRESSER Virtual Visit [facility] Neurology [address] 3rd [place] [address] Randy Maradiaga, DO [address] [place] [address] 10/09/2024 1:20 PM STRAW HAT PRESSER Office Visit [facility] [address] [facility] [address] [place] [phone] Danna Cardenas PA-C [address] [place], [place] [address] 10/15/2024 11:00 AM STRAW HAT PRESSER Office Visit [facility] [address] [place] [address] Denise Woodson APRN CUSTOM DRESSMAKER [address] [place], [place] [phone] 10/30/2024 4:00 PM STRAW HAT PRESSER Virtual Visit [facility] V[facility] [address] [place] [phone] Lisa Zambrano MD [address] [place], [place] [address] 12/29/2024 12:45 PM CDT Office Visit [facility] [address] [place] [address] Ave [facility] [address] [phone] Fabi Coates MD [address] 7[address] 12/29/2024 1:45 PM CDT Office Visit [facility] [address] [place], [place] [address]e Explorer [address] [phone] Fabi Coates MD [address] [address] 06/01/2025 11:[address] [facility] [address] [place] [phone] Robin Zepeda MD [address] [place] [address] 06/04/2025 11:00 AM CDT Office Visit [facility] Neurosurgery Clinic [address] 3rd [place] [phone] Robin Zepeda MD [address] [place] [phone] Usha Simon APRN CUSTOM DRESSMAKER [address] [place] [phone] documented as of this encounter Goals Goal Patient Goal Type Associated Problems Recent Progress Patient-Stated? Author I would like additional resources and support to manage my health and prevent future avoidable ED visits/hospital admissions Care Plan Increased risk of re-admission 40%( 4 3:02 PM STRAW HAT PRESSER) Anastasia Talamantes, RN Note: Barriers: diagnosis of multiple, chronic, complex medical conditions, provider availability - wait time to complete appointments, etc. Strengths: motivated, engaged in care coordination Patient expressed understanding of goal: yes Action steps to achieve this goal: 1. I will follow up with my providers as scheduled/recommended - Pulmonology: TBD - Mental Health weekly - PT, OT and FIRE INFORMATION OFFICER, continuing through [facility] [place]: - PCP: 09/18/2024 & 10/15/2024. - Vascular [...] clinic with 24/7 after hours services available. Programming Instructor will remain available as needed. documented as of this encounter Visit Diagnoses Not on filedocumented in this encounter Additional Health Concerns Active Problems Noted Date Diagnosed Date Increased risk of re-admission 02/18/2024 Assessment Noted Time PHQ-9 Depression Total Score: 5 08/03/20 24 12:49 PM STRAW HAT PRESSER documented as of this encounter Care Teams Rougher Machine Operator Relationship Specialty Start Date End Date Winston Villatoro OD [facility] [place] [address] [facility] [address] [place] [address] PCP - Ophthalmology Ophthalmology 02/11/13 Denise Woodson APRN CUSTOM DRESSMAKER [address] [place] [address] PCP - General Family Practice 09/21/20 Denise Woodson APRN CUSTOM DRESSMAKER [address] [place] [address] Assigned PCP 07/17/20 Usha Simon APRN CUSTOM DRESSMAKER 9 [facility] [id number] [address] Nurse Practitioner Neurological Surgery 01/24/24 Dangelo Salinas MD [address] [place] [address] Neurology 01/27/24 Anastasia Stearns, RN Lead Programming Instructor 02/06/24 Germaine Lopez, [facility] Community Health Worker Primary Care - CC 02/18/24 Joya Lira RPH [address] [place] [address] Pharmacist Pharmacist 05/25/24 Joya Lira [facility] [address] [place] [address] Assigned MTM Pharmacist 06/08/24 Fabi Coates MD [address] [place] [address] Genetics, Clinical 06/18/24 Danna Cardenas PA-C [address] [place] [address] Assigned Heart and Vascular Provider 07/08/24 Arthur Salas LICSW [address] [address] Assigned Behavioral Health Provider 08/08/24 Randy Maradiaga DO [address] [place] [address] Assigned Neuroscience Provider 08/08/24 documented as of this encounter
--- OUTSIDE RECORDS SUMMARY | 2024-09-20 18:07 | XMS_ITS | Encounter Summary ---
Author Organization [facility] Address [address] [place] [address] Care Team Providers Care Health Care Coach Name Role Phone Winston Villatoro OD Unavailable [phone] Denise Woodson APRN HELICOPTER MECHANIC Unavailable [phone] Denise Woodson APRN HELICOPTER MECHANIC Primary Care Provider Usha Simon APRN HELICOPTER MECHANIC Unavailable Dangelo Salinas MD Unavailable Anatsasia Stearns RN Unavailable Germaine Lopez [facility] Unavailable Joya Lira [facility] Unavailable Joya Lira [facility] Unavailable [phone] Fabi Coates MD Unavailable [phone] Danna CardenasC Unavailable [phone] Arthur Salas TRANSFORMER MOLDER Unavailable [phone] Randy Maradiaga DO Unavailable + Encounter Details Date Type Department Care Team (Late st Contact Info) Description 09/04/2024 [facility] [address] [address] Wood, Qing Social History Tobacco Use Types Packs/Day Years [...] How often do you attend christianity or baptism serv ices? 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 Not on file Not on file Not on file Not on file Not on file Not on file documented as of this encounter Plan of Treatment Upcoming Encounters Date Type Department Care Team (Late st Contact Info) Description 09/25/2024 11:00 AM FIRER LOCOMOTIVE Office Visit [facility] [address] [place] [address] Denise Woodson APRN HELICOPTER MECHANIC [address] [place] [id number] 09/29/2024 9:00 AM FIRER LOCOMOTIVE Virtual Visit [facility] Neurology [place] [address] [facility] 3rd [place] [phone] Randy Maradiaga, [address] [address] 10/09/2024 1:20 PM FIRER LOCOMOTIVE Office Visit [facility] Heart [facility] [address] [facility] [address] [place] [phone] Danna Cardenas PA-C 6[address] [place], [place] [address] 10/15/2024 11:00 AM FIRER LOCOMOTIVE Office Visit [facility] [address] [place] [phone] Denise Woodson APRN [facility] [address] [place], [place] [phone] 10/30/2024 4:00 PM FIRER LOCOMOTIVE Virtual Visit [facility] Vascular [facility] [address] [place] [phone] Lisa Zambrano MD [address] [place] [address] 12/29/2024 12:45 PM CDT Office Visit [facility] [address] [place] [address] Ave [address] [phone] Fabi Coates MD 420 [facility] 75 [place], [place] [address] 12/29/2024 1:45 PM CDT Office Visit [facility] [address] [place] [address] Ave [address] [phone] Fabi Coates MD [address] [facility] [address] [place], [place] [address] 06/01/2025 11:15 AM CDT Appointment [facility] Center Imaging [address] [place] [phone] Robin Zepeda MD [address] [place] [address] 06/04/2025 11:00 AM CDT Office Visit [facility] Neurosurgery Clinic [address] 3rd [place] [phone] Robin Zepeda MD [address] [place] [address] Usha Simon APRN [address] [phone] documented as of this encounter Goals Goal Patient Goal Type Associated Problems Recent Progress Patient-Stated? Author I would like additional resources and support to manage my health and prevent future avoidable ED visits/hospital admissions Care Plan Increased risk of re-admission 40%( 4 3:02 PM FIRER LOCOMOTIVE) Anastasia Talamantes, RN Note: Barriers: diagnosis of multiple, chronic, complex medical conditions, provider availability - wait time to complete appointments, etc. Strengths: motivated, engaged in care coordination Patient expressed understanding of goal: yes Action steps to achieve this goal: 1. I will follow up with my providers as scheduled/recommended - Pulmonology: TBD - Mental Health weekly - PT, OT and DIRECTOR ACUTE, continuing through [facility] [place]: - PCP: 09/18/2024 & 10/15/2024. - Vascular [...] clinic with 24/7 after hours services available. Fruit Loader Machine Operator will remain available as needed. documented as of this encounter Visit Diagnoses Not on filedocumented in this encounter Additional Health Concerns Active Problems Noted Date Diagnosed Date Increased risk of re-admission 02/18/2024 Infection Onset Date Last Indicated Resolved Time Rule Out COVID-19 09/13/2024 09/13/2024 09/13/2024 12:31 PM FIRER LOCOMOTIVE Assessment Noted Time PHQ-9 Depression Total Score: 5 08/03/20 12:49 PM FIRER LOCOMOTIVE documented as of this encounter Care Teams Health Care Coach Relationship Specialty Start Date End Date Winston Villatoro OD [facility] [place] [address] [place] [address] PCP - Ophthalmology Ophthalmology 02/11/13 Denise Woodson APRN HELICOPTER MECHANIC [address] [place] [address] PCP - General Family Practice 09/21/20 Denise Woodson APRN HELICOPTER MECHANIC [address] [place] [address] Assigned PCP 07/17/20 Usha Simon APRN HELICOPTER MECHANIC [address] [facility] [place] [address] Nurse Practitioner Neurological Surgery 01/24/24 Dangelo Salinas MD [address] [place] [address] Neurology 01/27/24 Anastasia Stearns, RN Lead Fruit Loader Machine Operator 02/06/24 Germaine Lopez, [facility] Community Health Worker Primary Care - CC 02/18/24 Joya Lira RPH [address] [place] [address] Pharmacist Pharmacist 05/25/24 Joya Lira RPH [address] [place] [address] Assigned MTM Pharmacist 06/08/24 Fabi Coates MD [address] [place] [address] 75 [place] [address] Genetics, Clinical 06/18/24 Danna Cardenas PA-C [address] [place] [address] Assigned Heart and Vascular Provider 07/08/24 Arthur Salas TRANSFORMER MOLDER [address] [address] Assigned Behavioral Health Provider 08/08/24 Randy Maradiaga DO 909 [place] [address] Assigned Neuroscience Provider 08/08/24 documented as of this encounter
--- OUTSIDE RECORDS SUMMARY | 2024-09-20 18:07 | XMS_ITS | Encounter Summary ---
Author Organization [facility] Address [address] [place] [address] Care Team Providers Care Mortgage Operations Manager Name Role Phone Winston Villatoro OD Unavailable [phone] Denise Woodson APRN SENIOR BI DEVELOPER Unavailable [phone] Denise Woodson APRN SENIOR BI DEVELOPER Primary Care Provider Usha Simon APRN SENIOR BI DEVELOPER Unavailable [phone] Dangelo Salinas MD Unavailable Anastasia Stearns RN Unavailable Germaine Lopez CH Unavailable Joya Lira [facility] Unavailable [phone] Joya Lira [facility] Unavailable Fabi Coates MD Unavailable [phone] Danna CardenasC Unavailable [phone] Arthur Salas RING MAKER Unavailable [phone] Randy Maradiaga DO Unavailable + Reason for Visit * Reason Comments Chest Pain Shortness of Breath Encounter Details Date Type Department Care Team (Late st Contact Info) Description 09/13/2024 10:54 AM EMERGENCY OPERATOR - 09/13/2024 4:42 PM [facility] [address] [place] [address] Sameer Castillo, DO [facility] [address] [place], [place] [address] COPD with acute exacerbation (H); Upper respiratory tract infection, unspecified type Discharge Disposition: Home or Self Care Social [...] Answer Date Recorded PHQ-2 Score 2 08/04/2024 [facility] Occupat ional Health - Occupational Stress [...] on file Legal Sex 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 EMERGENCY OPERATOR Gender Identity Not on file Sexual Orientation Not on file 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 Not on file Not on file Not on file Not on file Not on file Not on file Not on file documented as of this encounter Last Filed Vital Signs Vital Sign Reading Time Taken Comments Blood Pressure 128/86 09/13/2024 4:30 PM EMERGENCY OPERATOR Pulse 70 09/13/2024 4:36 PM EMERGENCY OPERATOR Temperature 36.7 C (98.1 F) 09/13/2024 11:43 AM EMERGENCY OPERATOR Respiratory Rate 12 09/13/2024 4:36 PM EMERGENCY OPERATOR Oxygen Saturation 98% 09/13/2024 4:36 PM EMERGENCY OPERATOR Inhaled Oxygen Concentration - - Weight 95.3 kg (210 lb) 09/13/2024 10:56 AM EMERGENCY OPERATOR Height 172.7 cm (5' 8) 09/13/2024 10:56 AM EMERGENCY OPERATOR Body Mass Index 31.93 09/13/2024 10:56 AM EMERGENCY OPERATOR documented in this encounter Discharge Instructions * Attachments The following attachments cannot be sent through Care Everywhere. * URI (Upper Respiratory Infection) (French) documented in this encounter Medications at Time [...] of breath, wheezing or cough. 18 g 09/13/2024 albuterol (PROAIR HFA/PROVENTIL HFA/VENTOLIN HFA) 108 (90 [...] mg) by mouth daily. 45 tablet 1 09/04/2024 fluticasone-vilan terol (BREO ELLIPTA) 200-25 MCG/ACT inhalerIndication s:Moderate persistent asthma without complication Inhale 1 puff into the lungs daily. 3 each 1 06/08/2024 levETIRAcetam (KEPPRA) 750 MG tabletIndications :History of seizure Take 1/2 of 750 mg tab BID 120 tablet 2 07/30/2024 Lidocaine (LIDOCARE) 4 % PatchIndications: Pain of right upper extremity,Fibromy algia Place 1 patch onto the skin daily as needed. To prevent lidocaine toxicity, patient should be patch free for 12 hrs daily. 05/19/2024 LORazepam (ATIVAN) 1 MG tabletIndications :History of seizure Take 1/2-1 tablet daily as needed for onset of dizziness. 10 tablet 08/04/2024 MAGNESIUM PO Take 1 tablet by mouth [...] bedtime. 05/29/2024 documented as of this encounter ED Notes * Sameer Castillo, - 09/13/2024 11:21 AM CST Emergency Department Note History of Present Illness Chief Complaint Chest Pain and Shortness of Breath HPI Alcon Zamora is a 49 year old female with a history of COPD, DDD, stroke, Ehler's danlos syndrome,asthma, and seizure disorder who presents to the ED for an evaluation of chest pain and shortness of breath. She reports that on 09/07/24 she had aspirated some sloppy louann on toast and further developed some whistling and chest pain with a cough. She states she went to [facility] where they got a chest Xray. Yesterday evening, she states her chest pain worsened along with shortness ofbreath, dizziness, weakness, and a drop in oxygen saturation. Now this morning, she still reports chest pain and dyspnea with her left side feeling like she cannot get enough air in. She also adds that she feels weaker, hot, slight abdominal pain, body aches, but when sitting up she feels better. She denies fever, leg swelling, or history of blood clots in legs or lungs. Reports that she has beenrecovering from a stroke, had CT of heart and lungs in July, has had a hysterectomy, and has had prior hospitalizations with pneumonia. Independent Historian None Review of External Notes Reviewed discharge summary from 07/13/24. Past Medical History Medical History and Problem List Acute posthemorrhagic anemia Atrial septal defect ADHD Broncho-pulmonary dysplasia Cervicalgia COPD DDD Depressive disorder Lizy-Danlos syndrome Generalized anxiety disorder Stroke Seizures Uncomplicated asthma Fibromyalgia Medications Albuterol inhaler Aspirin Celexa Breo ellipta inhaler Levetiracetam Lorazepam Oxycodone Metamucil Senna-docusate Trazodone Surgical History Past Surgical History: Procedure Laterality Date C OPERATIONS OFFICER TRUST DEPARTMENT PROCEDURE DATE: [id number] vag del. C OPERATIONS OFFICER TRUST DEPARTMENT PROCEDURE DATE: 2000 tubal ligation C OPERATIONS OFFICER TRUST DEPARTMENT PROCEDURE DATE: 1994 D&C CARDIAC SURGERY 06/2006 heart defect repair ESOPHAGOSCOPY, GASTROSCOPY, DUODENOSCOPY (EGD), COMBINED N/A 02/08/2021 Procedure: ESOPHAGOGASTRODUODENOSCOPY (EGD); Surgeon: Tuan Miller MD; Location: GI GI SURGERY 09/2020 gallbladder removed HC KNEE SCOPE,MED/LAT MENISECTOMY 08/04/13 LT HEART CATH, CLOSURE ATRIAL SEPTAL DEFECT 06/20/06 amplatzer septal occluder- serial #[id number] OPERATIONS OFFICER TRUST DEPARTMENT (ABSTRACTED) pneumonia several times SURGICAL PATHOLOGY EXAM 02/2012 excision of lipoma on chest wall [facility] VAGINAL HYSTERECTOMY 01/30/06 Physical Exam Patient Vitals for the past 24 hrs: BP Temp Temp src Pulse Resp SpO2 Height Weight 09/13/24 1500 (!) 140/88 -- -- 75 14 -- -- -- 09/13/24 1430 132/76 -- -- 79 -- 95 % -- -- 09/13/24 1200 (!) 147/86 -- -- 80 12 96 % -- -- 09/13/24 1143 (!) 152/85 98.1 ??F (36.7 ??C) -- 79 21 -- -- -- 09/13/24 1056 (!) 159/96 98.1 ??F (36.7 ??C) Oral 88 15 98 % 1.727 m (5' 8) 95.3 kg (210 lb) Physical Exam General: Alert and cooperative with exam. Patient in mild distress. Normal mentation. Head: Scalp is NC/AT Eyes: No scleral icterus, PERRL ENT: The external nose and ears are normal. The oropharynx is normal and without erythema; mucus membranes are moist. Uvula midline, no evidence of deep space infection. Neck: Normal range of motion without rigidity. CV: Regular rate and rhythm No pathologic murmur Resp: Breath sounds are clear bilaterally. Occasional cough. Non-labored, no retractions or accessory muscle use GI: Abdomen is soft, no distension, no tenderness. No peritoneal signs MS: No lower extremity edema Skin: Warm and dry, No rash or lesions noted. Neuro: Oriented x 3. No gross motor deficits. Diagnostics Lab Results Labs Ordered and Resulted from Time of ED Arrival to Time of ED Departure COMPREHENSIVE METABOLIC PANEL - Abnormal Result Value Sodium 142 Potassium 4.6 Carbon Dioxide (CO2) 29 Anion Gap 10 Urea Nitrogen 14.5 Creatinine 0.82 GFR Estimate 88 Calcium 10.1 Chloride 103 Glucose 105 (*) Alkaline Phosphatase 117 AST 28 ALT 27 Protein Total 7.9 Albumin 4.4 Bilirubin Total 0.9 D DIMER QUANTITATIVE - Abnormal D-Dimer Quantitative 0.82 (*) TROPONIN T, HIGH SENSITIVITY - Normal Troponin T, High Sensitivity <6 INFLUENZA A/B, RSV AND SARS-COV2 PCR - Normal Influenza A PCR Negative Influenza B PCR Negative RSV PCR Negative SARS CoV2 PCR Negative CBC WITH PLATELETS AND DIFFERENTIAL WBC Count 7.4 RBC Count 4.95 Hemoglobin 15.0 Hematocrit 44.6 MCV 90 MCH 30.3 MCHC 33.6 RDW 12.1 Platelet Count 205 % Neutrophils 57 % Lymphocytes 29 % Monocytes 6 % Eosinophils 8 % Basophils 1 % Immature Granulocytes 0 NRBCs per 100 WBC 0 Absolute Neutrophils 4.2 Absolute Lymphocytes 2.1 Absolute Monocytes 0.4 Absolute Eosinophils 0.6 Absolute Basophils 0.1 Absolute Immature Granulocytes 0.0 Absolute NRBCs 0.[address] Chest Pulmonary Embolism w Contrast Final Result IMPRESSION: 1. No pulmonary artery embolism. 2. Mild emphysema and mild bronchiolitis with bronchial wall thickening and pulmonary air trapping.No pneumonic infiltrate or pleural effusion. Chest XR, PA & LAT Final Result IMPRESSION: Pulmonary hyperinflation consistent with known emphysema. PFO closure device. Mild bibasilar opacities likely reflect atelectasis. Stable biapical scarring. No pleural effusion. Stable heart size. EKG ECG taken at 1053, ECG read at 1103 Normal sinus rhythm Possible left atrial enlargement T wave abnormality, consider inferolateral ischemia Abnormal ECG Unchanged as compared to prior, dated 05/10/24. Rate 88 bpm. WV interval 148 ms. QRS duration 78 ms. QT/QTc 316/382 ms. P-R-T axes 62 49 -12. Independent Interpretation None ED Course Medications Administered Medications dexAMETHasone PF (DECADRON) injection 10 mg (has no administration in time range) Saline (100 mLs As instructed $Given 09/13/24 1250) iopamidol (ISOVUE-370) solution 75 mL (75 mLs Intravenous $Given 09/13/24 1250) Procedures Procedures Discussion of Management None ED Course ED Course as of 09/13/24 1623 Sun Sep 13, 2024 1124 I obtained history and examined the patient as noted above. 1242 I rechecked and updated the patient. 1500 I rechecked and updated the patient. Additional Documentation Social Determinants of Health: None Medical Decision Making / Diagnosis [facility] Diagnoses: None MIPS CT for PE was ordered because the patient had an abnormal d-dimer. DORA Zamora is a 49 year old female with a history of COPD and reported recent aspiration event who presents for evaluation of shortness of breath. Signs and symptoms are consistent with URI (likely viral) resulting in COPD exacerbation. A broad differential was considered including foreign body,COPD, viral induced reactive airway disease, pneumothorax, cardiac equivalent, allergic phenomena, p neumonia, bronchitis, etc. Patient feels improved after interventions here in ED. No indication forhospitalization at this time including no hypoxia, no marked increase in respiratory rate, minimal to no retractions. Supportive outpatient management is indicated, medications for discharge noted below. Close followup with primary care physician. Return if increased wheezing, progressive shortnessof breath, develops fever. There are no signs at this point of any other serious etiologies including those mentioned above, especially acute coronary syndrome or PE. CTA of the chest was obtained due to elevated D-dimer; demonstrates evidence of mild emphysema mild bronchiolitis with bronchial wall thickening and pulmonary air trapping. Patient was offered but deferred nebulizer treatment in the ED. No signs of pneumonia o r indication for antibiotics at this time. Additional supportive care discussed. Provided Decadron in the ED. Disposition The patient was discharged. Diagnosis ICD-10-CM 1. COPD with acute exacerbation (H) J44.1 2. Upper respiratory tract infection, unspecified type J06.9 Discharge Medications New Prescriptions ALBUTEROL (PROAIR HFA/PROVENTIL HFA/VENTOLIN HFA) 108 (90 BASE) MCG/ACT INHALER Inhale 1-2 puffs into the lungs every 6 hours as needed for shortness of breath, wheezing or cough. Scribe Disclosure: Liz Dillon, am serving as a scribe at 11:21 AM on 09/13/2024 to document services personally performed by Sameer Castillo DO based on my observations and the provider's statements to me. Sameer Castillo DO 09/13/24 1629 GENCY OPERATOR * Joya Oneill RN - 09/13/2024 11:10 AM CST Bed: ED08 Expected date: Expected time: Means of arrival: Comments: triage GENCY OPERATOR * Aliya Martinez RN - 09/13/2024 10:59 AM CST Images from the original note were not included. Patient comes in with left sided chest pain and SOB. States that she had a stroke in December and since has had swallowing issues. States 09/07 aspirated some food and it never came out, it just moved further down. States starting yesterday had the chest pain and SOB. Triage Assessment (Adult) Row Name 09/13/24 1059 Triage Assessment Airway WDL WDL Respiratory WDL Respiratory WDL cough Skin Circulation/Temperature WDL Skin Circulation/Temperature WDL WDL Cardiac WDL Cardiac WDL -- lef chest pain Cardiac Rhythm NSR Peripheral/Neurovascular WDL Peripheral Neurovascular WDL WDL Cognitive/Neuro/Behavioral WDL Cognitive/Neuro/Behavioral WDL WDL GENCY OPERATOR documented in this encounter Plan of Treatment Upcoming Encounters Date Type Department Care Team (Late st Contact Info) Description 09/25/2024 11:00 AM EMERGENCY OPERATOR [facility] [address] [place] [phone] Denise Woodson APRN SENIOR BI DEVELOPER [address] [place], [place] [phone] 09/29/2024 9:00 AM EMERGENCY OPERATOR Virtual Visit [facility] [address] [phone] Randy Maradiaga, [address] [phone] 10/09/2024 1:20 PM EMERGENCY OPERATOR Office Visit [facility] [place] [id number] [facility] [address] [place] [phone] Danna Cardenas PA-C [address] [place] [address] 10/15/2024 11:00 AM EMERGENCY OPERATOR [facility] [address] [place] [phone] Denise Woodson APRN SENIOR BI DEVELOPER [address] [place], [place] [phone] 10/30/2024 4:00 PM EMERGENCY OPERATOR Virtual Visit [facility] [place] [address] [place] [phone] Lisa Zambrano MD [address] [place] [address] 12/29/2024 12:45 PM CDT Office Visit [facility] [address] [place] [address] [facility] [address] [phone] Fabi Coates MD [address] [place] [phone] 12/29/2024 1:45 PM CDT Office Visit [facility] [address] [place] [address] [facility] [address] [phone] Fabi Coates MD [address] [place] [phone] 06/01/2025 11:15 AM CDT Appointment [facility] [address] [facility] [address] [place] [phone] Robin Zepeda MD [address] [place] [phone] 06/04/2025 11:00 AM CDT Office Visit [facility] [address] 3rd [place] [phone] Robin Zepeda MD [address] [place] [phone] Usha Simon APRN [address] [phone] documented as of this encounter Goals Goal Patient Goal Type Associated Problems Recent Progress Patient-Stated? Author I would like additional resources and support to manage my health and prevent future avoidable ED visits/hospital admissions Care Plan Increased risk of re-admission 40%( 4 3:02 PM EMERGENCY OPERATOR) Anastasia Talamantes RN Note: Barriers: diagnosis of multiple, chronic, complex medical conditions, provider availability - wait time to complete appointments, etc. Strengths: motivated, engaged in care coordination Patient expressed understanding of goal: yes Action steps to achieve this goal: 1. I will follow up with my providers as scheduled/recommended - Pulmonology: TBD - Mental Health weekly - PT, OT and CONFERENCE ASSISTANT, continuing through [facility]: - PCP: 09/18/2024 & 10/15/2024. - Vascular [...] clinic with 24/7 after hours services available. Genetic Supervisor will remain available as needed. documented as of this encounter Procedures Procedure Name Priority Date/Time Associated Diagnosis Comments CT CHEST PULMONARY EMBOLISM W CONTRAST STAT 09/13/2024 12:59 PM EMERGENCY OPERATOR INFLUENZA A/B, RSV AND SARS-COV2 PCR STAT 09/13/2024 11:49 AM EMERGENCY OPERATOR XR CHEST 2 VIEWS STAT 09/13/2024 11:2 5 AM EMERGENCY OPERATOR EXTRA TUBE STAT 09/13/2024 11:06 AM EMERGENCY OPERATOR EXTRA BLUE TOP TUBE STAT 09/13/2024 1 1:06 AM EMERGENCY OPERATOR CBC WITH PLATELETS AND DIFFERENTIAL STAT 09/13/2024 11:06 AM EMERGENCY OPERATOR TROPONIN T, HIGH SENSITIVITY Add-On 09/13/2024 11:06 AM EMERGENCY OPERATOR CBC WITH PLATELETS & DIFFERENTIAL STAT 09/13/2024 11:06 AM EMERGENCY OPERATOR D DIMER QUANTITATIVE STAT 09/13/2024 11:06 AM EMERGENCY OPERATOR COMPREHENSIVE METABOLIC PANEL STAT 09/13/2024 11:06 AM EMERGENCY OPERATOR EKG 12-LEAD, TRACING ONLY STAT 09/13/2024 10:53 AM EMERGENCY OPERATOR documented in this encounter Results * CT Chest Pulmonary Embolism w Contrast (09/13/2024 12:59 PM EMERGENCY OPERATOR) Anatomical Region Laterality Modality Chest, SUBRAD CT BODY, UMP CT CHEST Computed Tomography 09/13/2024 12:5 9 PM EMERGENCY OPERATOR Impressions 09/13/2024 2:23 PM EMERGENCY OPERATOR IMPRESSION: 1. No pulmonary artery embolism. 2. Mild emphysema and mild bronchiolitis with bronchial wall thickening and pulmonary air trapping. No pneumonic infiltrate or pleural effusion. Narrative 09/13/2024 2:23 PM EMERGENCY OPERATOR EXAM: CT CHEST PULMONARY EMBOLISM W CONTRAST LOCATION: [facility] DATE: 09/13/2024 INDICATION: Chest pain and shortness [...] CT CHEST PULMONARY EMBOLISM W CONTRAST LOCATION: [facility] DATE: 09/13/2024 INDICATION: Chest pain and shortness [...] infiltrate or pleural effusion. Sameer Castillo DO [facility] ORDERABLES Final Result * Influenza A/B, RSV and SARS-CoV2 PCR (COVID-19) Nasopharyngeal (09/13/2024 11:49 AM EMERGENCY OPERATOR) Influenza A PCR Negative Negative 09/13/2024 12:31 PM EMERGENCY OPERATOR LABORATORY Influenza B PCR Negative Negative 09/13/2024 12:31 PM EMERGENCY OPERATOR LABORATORY RSV PCR Negative Negative 09/13/2024 12:31 PM EMERGENCY OPERATOR LABORATORY SARS CoV2 PCR Negative Negative 09/13/2024 12:31 PM EMERGENCY OPERATOR LABORATORY Comment:NEGATIVE: SARS-CoV-2 (COVID-19) RNA not detected, presumed negative. Swab NASOPHARYNGEAL STRUCTURE / Unknown Non-blood Collection / Unknown 09/13/2024 11:49 AM EMERGENCY OPERATOR 09/13/2024 11:52 AM EMERGENCY OPERATOR Narrative LABORATORY - 09/13/2024 12:31 PM EMERGENCY OPERATOR Testing was performed using the Xpert Xpress CoV2/Flu/RSV Assay on the [employer] GeneXpert Instrument. This test should be ordered [...] management. This test was validated by the [facility]. These laboratories are certified under the Clinical Laboratory Improvement Amendments of 1988 (CLIA-88) as qualified to perfom high complexity laboratory testing. Sameer Castillo DO LAB - MICRO GENERA L ORDERABLES Final Result LABORATORY [facility] [address] floor, [address] [place] [address], [facility] [phone] * Chest XR, PA & LAT (09/13/2024 11:25 AM EMERGENCY OPERATOR) Anatomical Region Laterality Modality Chest Digital Radiogra phy 09/13/2024 11:2 5 AM EMERGENCY OPERATOR Impressions 09/13/2024 12:27 PM EMERGENCY OPERATOR IMPRESSION: Pulmonary hyperinflation consistent with known emphysema. PFO closure device. Mild bibasilar opacities likely reflect atelectasis. Stable biapical scarring. No pleural effusion. Stable heart size. Narrative 09/13/2024 12:27 PM EMERGENCY OPERATOR EXAM: XR CHEST 2 VIEWS LOCATION: [facility] DATE: 09/13/2024 INDICATION: chst pain and sob aftr aspirationj COMPARISON: CT 03/18/2024 Procedure Note Dionicio Ennis MD - 09/13/2024 EXAM: XR CHEST 2 VIEWS LOCATION: [facility] DATE: 09/13/2024 INDICATION: chst pain and sob aftr aspirationj COMPARISON: CT 03/18/2024 IMPRESSION: Pulmonary hyperinflation consistent with known emphysema. PFOclosure device. Mild bibasilar opacities likely reflect atelectasis.Stable biapical scarring. No pleural effusion. Stable heart size. Sameer Castillo DO [facility]NOST[facility] ORDERABLES Final Result * (ABNORMAL) D dimer quantitative (09/13/2024 11:06 AM EMERGENCY OPERATOR) [facility] D-Dimer Quantitative 0.82(H) 0.00 - 0.50 ug/mL FEU 09/13/2024 11:54 AM [facility] Blood VENOUS LINE / Unknown Venipuncture / Unknown 09/13/2024 11:06 AM EMERGENCY OPERATOR 09/13/2024 11:15 AM EMERGENCY OPERATOR Narrative LABORATORY - 09/13/2024 11:54 AM EMERGENCY OPERATOR This D-dimer assay is intended for use in conjunction with a clinical pretest probability assessment model to exclude pulmonary embolism (PE) and deep venous thrombosis (DVT) in outpatients suspected of PE or DVT. The cut-off value is 0.50 ug/mL FEU. Sameer Castillo DO LAB - BLOOD ORDERA BLES Final Result LABORATORY [facility] [address], [address] [place] [address], [place] [phone] * Troponin T, High Sensitivity (09/13/2024 11:06 AM EMERGENCY OPERATOR) [facility] Troponin T, High Sensitivity <6 <=14 ng/L 09/13/2024 11:47 AM [facility] Comment: Either a High Sensitivity Troponin [...] Unknown Venipuncture / Unknown 09/13/2024 11:06 AM EMERGENCY OPERATOR 09/13/2024 11:15 AM EMERGENCY OPERATOR Sameer Castillo DO LAB - BLOOD ORDERA BLES Final Result LABORATORY [facility] [address], [address] [place] [address], [facility] [phone] * Extra Blue Top Tube (09/13/2024 11:06 AM EMERGENCY OPERATOR) Hold Specimen x 09/13/2024 11:46 AM [facility] Blood VENOUS LINE / Unknown Venipuncture / Unknown 09/13/2024 11:06 AM EMERGENCY OPERATOR 09/13/2024 11:15 AM EMERGENCY OPERATOR Sameer Castillo DO LAB - BLOOD ORDERA BLES Final Result LABORATORY [facility] [address], [address] [place] [address], [place] [phone] * CBC with platelets and differential (09/13/2024 11:06 AM EMERGENCY OPERATOR) [facility] WBC Count 7.4 4.0 - 11.0 10e3/uL 09/13/2024 11:17 AM [facility] RBC Count 4.95 3.80 - 5.20 10e6/uL 09/13/2024 11:17 AM [facility] Hemoglobin 15.0 11.7 - 15.7 g/dL 09/13/2024 11:17 AM [facility] Hematocrit 44.6 35.0 - 47.0 % 09/13/2024 11:17 AM [facility] MCV 90 78 - 100 fL 09/13/2024 11:17 AM [facility] MCH 30.3 26.5 - 33.0 pg 09/13/2024 11:17 AM [facility] MCHC 33.6 31.5 - 36.5 g/dL 09/13/2024 11:17 AM [facility] RDW 12.1 10.0 - 15.0 % 09/13/2024 11:17 AM [facility] Platelet Count 205 150 - 450 10e3/uL 09/13/2024 11:17 AM [facility] % Neutrophils 57 % 09/13/2024 11:17 AM [facility] % Lymphocytes 29 % 09/13/2024 11:17 AM [facility] % Monocytes 6 % 09/13/2024 11:17 AM [facility] % Eosinophils 8 % 09/13/2024 11:17 AM [facility] % Basophils 1 % 09/13/2024 11:17 AM [facility] % Immature Granulocytes 0 % 09/13/2024 11:17 AM [facility] NRBCs per 100 WBC 0 <1 /100 024 11:17 AM [facility] Absolute Neutrophils 4.2 1.6 - 8.3 10e3/uL 09/13/2024 11:17 AM [facility] Absolute Lymphocytes 2.1 0.8 - 5.3 10e3/uL 09/13/2024 11:17 AM [facility] Absolute Monocytes 0.4 0.0 - 1.3 10e3/uL 09/13/2024 11:17 AM [facility] [facility] Absolute Eosinophils 0.6 0.0 - 0.7 10e3/uL 09/13/2024 11:17 AM [facility] Absolute Basophils 0.1 0.0 - 0.2 10e3/uL 09/13/2024 11:17 AM [facility] Absolute Immature Granulocytes 0.0 <=0.4 10e3/uL 09/13/2024 11:17 AM [facility] Absolute NRBCs 0.0 10e3/uL 09/13/2024 11:17 AM [facility] Blood VENOUS LINE / Unknown Venipuncture / Unknown 09/13/2024 11:06 AM EMERGENCY OPERATOR 09/13/2024 11:15 AM [facility] Sameer Castillo DO LAB - BLOOD ORDERA BLES Final Result LABORATORY [facility] [address] 1st floor, Room [address] [place] [address], [facility] [phone] * (ABNORMAL) Comprehensive metabolic panel (09/13/2024 11:06 AM [facility]) Sodium 142 135 - 145 mmol/L 09/13/2024 11:47 AM [facility] Potassium 4.6 3.4 - 5.3 mmol/L 09/13/2024 11:47 AM [facility] Carbon Dioxide (CO2) 29 22 - 29 mmol/L 09/13/2024 11:47 AM [facility] Anion Gap 10 7 - 15 mmol/L 09/13/2024 11:47 AM [facility] Urea Nitrogen 14.5 6.0 - 20.0 mg/dL 09/13/2024 11:47 AM [facility] Creatinine 0.82 0.51 - 0.95 mg/dL 09/13/2024 11:47 AM [facility] GFR Estimate 88 >60 mL/min/1.7 3m2 09/13/2024 11:47 AM [facility] Comment:eGFR calculated usin 2020 CKD-EPI equation. Calcium 10.1 8.8 - 10.4 mg/dL 09/13/2024 11:47 AM [facility] Comment:Reference intervals for this test were updated on 03/31/2024 to reflect our healthy population more accurately. There may be differences in the flagging of prior results with similar values performed with this method. Those prior results can be interpreted in the context of the updated reference intervals. Chloride 103 98 - 107 mmol/L 09/13/2024 11:47 AM [facility] Glucose 105(H) 70 - 99 mg/dL 09/13/2024 11:47 AM [facility] Alkaline Phosphatase 117 40 - 150 U/L 09/13/2024 11:47 AM [facility] AST 28 0 - 45 U/L 09/13/2024 11:47 AM [facility] ALT 27 0 - 50 U/L 09/13/2024 11:47 AM [facility] Protein Total 7.9 6.4 - 8.3 g/dL 09/13/2024 11:47 AM [facility] Albumin 4.4 3.5 - 5.2 g/dL 09/13/2024 11:47 AM [facility] Bilirubin Total 0.9 <=1.2 mg/dL 09/13/2024 11:47 AM [facility] Blood VENOUS LINE / Unknown Venipuncture / Unknown 09/13/2024 11:06 AM EMERGENCY OPERATOR 09/13/2024 11:15 AM [facility] us Sameer Castillo DO LAB - BLOOD ORDERA BLES Final Result LABORATORY [facility] [address] 1st floor, [address] [place] [address], [facility] [phone] * EKG 12 lead (09/13/2024 10:53 AM [facility]) Systolic Blood Pressure mmHg RADIOLOGY RESULTS Diastolic Blood Pressure mmHg RADIOLOGY RESULTS Ventricular Rate 88 BPM RAD IOLOGY RESULTS Atrial Rate 88 BPM RADIOLOG Y RESULTS WV Interval 148 ms RADIOLOG Y RESULTS QRS Duration 78 ms RADIOLO GY RESULTS QT 316 ms RADIOLOGY RESULTS QTc 382 ms RADIOLOGY RESULTS P Eugene 62 degrees RADIOLOGY RESULTS R AXIS 49 degrees RADIOLOGY RESULTS T Eugene -12 degrees RADIOLOGY RESULTS Interpretation ECG Sinus rhythm Possible Left atrial enlargement T wave abnormality, consider inferolateral ischemia Abnormal ECG When compared with ECG of 10-May-2024 11:25, T wave inversion more evident in Inferior leads T wave inversion now evident in Anterior leads Confirmed by GENERATED REPORT, COMPUTER ([id number]), visual effects editor Felicita Pettit ([id number]) on 09/13/2024 12:08:04 PM RADIOLOGY RESULTS 09/13/2024 10:5 3 AM EMERGENCY OPERATOR 09/13/2024 12:08 PM EMERGENCY OPERATOR Tran Qureshi MD ECG ORDERABLES Edited R esult - Final RADIOLOGY RESULTS documented in this encounter Visit Diagnoses Diagnosis COPD with acute exacerbation (H) Obstructive chronic bronchitis with exacerbation Upper respiratory tract infection, unspecified type documented in this encounter Administered Medications Inactive Administered Medications - up to 3 most recent administrations Medication Order MAR Action Action Date Dose Rate Site dexAMETHasone PF (DECADRON) injection 10 mg 10 mg, Intravenous, ONCE, Administer over 1 Minutes, On 09/13/24 at 1610, For 1 dose $Given 09/13/2024 4:37 PM EMERGENCY OPERATOR 10 mg iopamidol (ISOVUE-370) solution 75 mL 75 mL, Intravenous, ONCE, On 09/13/24 at 1250, For 1 dose $Given 09/13/2024 12:50 PM EMERGENCY OPERATOR 75 mLs Saline As instructed, 100 mL, ONCE, On 09/13/24 at 1250, For 1 dose, This entry is for use by Radiology to intermittently used as a flush in patients receiving a CT scan. $Given 09/13/2024 12:50 PM EMERGENCY OPERATOR 100 mLs documented in this encounter Active and Recently Administered Medications Times are shown in EMERGENCY OPERATOR. Scheduled Medication Order 09/11/2024 09/12/2024 09/13/2024 dexAMETHasone PF (DECADRON) injection 10 mg (COMPLETED) 10 mg, Intravenous, ONCE, Administer over 1 Minutes, On 09/13/24 at 1610, For 1 dose 1637 ($Given - Provi andreia: Joya Oneill RN) iopamidol (ISOVUE-370) solution 75 mL (COMPLETED) 75 mL, Intravenous, ONCE, On 09/13/24 at 1250, For 1 dose 1250 ($Given - Provi andreia: BRADFORD GAXIOLA) Saline (COMPLETED) As instructed, 100 mL, ONCE, On 09/13/24 at 1250, For 1 dose, This entry is for use by Radiology to intermittently used as a flush in patients receiving a CT scan. 1250 ($Given - Provi andreia: KHALIDA BRADFORD) documented in this encounter Additional Health Concerns Active Problems Noted Date Diagnosed Date Increased risk of re-admission 02/18/2024 Infection Onset Date Last Indicated Resolved Time Rule Out COVID-19 09/13/2024 09/13/2024 09/13/2024 12:31 PM EMERGENCY OPERATOR Assessment Noted Time PHQ-9 Depression Total Score: 5 08/03/20 24 12:49 PM EMERGENCY OPERATOR documented as of this encounter Care Teams Mortgage Operations Manager Relationship Specialty Start Date End Date Winston Villatoro OD [facility] [place] [address] [place] [address] PCP - Ophthalmology Ophthalmology 02/11/13 Denise Woodson APRN SENIOR BI DEVELOPER [address] [place] [address] PCP - General Family Practice 09/21/20 Denise Woodson APRN SENIOR BI DEVELOPER [address] [place] [address] Assigned PCP 07/17/20 Usha Simon APRN SENIOR BI DEVELOPER [address] [facility], [place] [address] Nurse Practitioner Neurological Surgery 01/24/24 Dangelo Salinas MD [address] [place], [place] [id number] Neurology 01/27/24 Anastasia Stearns, RN Lead Genetic Supervisor 02/06/24 Germaine Lopez, CHW Community Health Worker Primary Care - CC 02/18/24 Joya Lira [facility] [address] [place] [address] Pharmacist Pharmacist 05/25/24 Soraya Joya [facility] [address] [place] [address] Assigned MTM Pharmacist 06/08/24 Fabi Coates MD [address] [place] [address] 75 [place] [address] Genetics, Clinical 06/18/24 Danna Cardenas PA-C [address] [place] [address] Assigned Heart and Vascular Provider 07/08/[address] [facility] [address] [address] Assigned Behavioral Health Provider 08/08/24 Randy Maradiaga DO [address] [place] [address] Assigned Neuroscience Provider 08/08/24 documented as of this encounter
--- OUTSIDE RECORDS SUMMARY | 2024-09-20 18:07 | XMS_ITS | Encounter Summary ---
Author Organization [facility] Address [address] [place] [address] Care Team Providers Care Medical Insurance Biller Name Role Phone Winston Villatoro OD Unavailable [phone] Denise Woodson APRN FOOD PACKER Unavailable [phone] Denise Woodson APRN FOOD PACKER Primary Care Provider Usha Simon APRN FOOD PACKER Unavailable [phone] Dangelo Salinas MD Unavailable Anastasia Stearns RN Unavailable [phone] Germaine Lopez [facility] Unavailable Joya Lira [facility] Unavailable Joya Lira [facility] Unavailable Fabi Coates MD Unavailable [phone] Danna CardenasC Unavailable [phone] Arthur Salas LINK AND LINK KNITTING MACHINE OPERATOR Unavailable [phone] Randy Maradiaga DO Unavailable + Reason for Visit * Reason Comments Medication Refill Encounter Details Date Type Department Care Team (Late st Contact Info) Description 09/02/[address] [address] Denise WoodsonBARRERA FOOD PACKER [address] [place] [address] Medication Refill Social History Tobacco Use Types [...] How often do you attend yazdanism or catholic serv ices? 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 Not on file Not on file Not on file Not on file Not on file Not on file documented as of this encounter Plan of Treatment Upcoming Encounters Date Type Department Care Team (Late st Contact Info) Description 09/25/2024 11:00 AM BASEBALL GLOVE STUFFER Office Visit [facility] [address] [place] [address] Denise Woodson APRN CNP [address] [place] [address] 09/29/2024 9:00 AM BASEBALL GLOVE STUFFER Virtual Visit [facility] Neurology [address] 3rd [place] [phone] Randy Maradiaga, [address] [address] 10/09/2024 1:20 PM BASEBALL GLOVE STUFFER Office Visit [facility] Heart [facility] [address] [facility] [address] [place] [phone] Danna Cardenas PA-C [address] [place], [place] [address] 10/15/2024 11:00 AM BASEBALL GLOVE STUFFER Office Visit [facility] [address] [place] [phone] Chintan Denise, FIRST OFFICER AND FLIGHT INSTRUCTOR FOOD PACKER [address] [place] [address] 10/30/2024 4:00 PM BASEBALL GLOVE STUFFER Virtual Visit [facility] Vascular [facility] [address] [place] [phone] Lisa Zambrano MD [address] [place] [address] 12/29/2024 12:45 PM CDT Office Visit [facility] [address] [facility] [address],[place] [phone] Fabi Coates MD 420 [facility] 75 [place], [place] [address] 12/29/2024 1:45 PM CDT Office Visit [facility] 2450 [facility] 12[address],[place] [phone] Fabi Coates MD [address] [facility] 75 [place] [address] 06/01/2025 11:15 AM CDT Appointment [facility] Imaging [address] [place] [place] [phone] Robin Zepeda MD [address] [place] [address] 06/04/2025 11:00 AM CDT Office Visit [facility] Neurosurgery [facility] [address] [place] [address] 3rd [place] [phone] Robin Zepeda MD [address] [place] [address] Usha Simon APRN [facility] [address] [address] documented as of this encounter Goals Goal Patient Goal Type Associated Problems Recent Progress Patient-Stated? Author I would like additional resources and support to manage my health and prevent future avoidable ED visits/hospital admissions Care Plan Increased risk of re-admission 40%( 4 3:02 PM BASEBALL GLOVE STUFFER) No Anastasia Stearns, RN Note: Barriers: diagnosis of multiple, chronic, complex medical conditions, provider availability - wait time to complete appointments, etc. Strengths: motivated, engaged in care coordination Patient expressed understanding of goal: yes Action steps to achieve this goal: 1. I will follow up with my providers as scheduled/recommended - Pulmonology: TBD - Mental Health weekly - PT, OT and BECK TENDER, continuing through [facility] [place]: - PCP: 09/18/2024 & 10/15/2024. - Vascular [...] clinic with 24/ after hours services available. Fiber Design Engineer will remain available as needed. documented as of this encounter Visit Diagnoses Diagnosis Cerebrovascular accident (CVA), unspecified mechanism (H)- Primary documented in this encounter Additional Health Concerns Active Problems Noted Date Diagnosed Date Increased risk of re-admission 02/18/2024 Assessment Noted Time PHQ-9 Depression Total Score: 5 08/03/20 24 12:49 PM BASEBALL GLOVE STUFFER documented as of this encounter Care Teams Medical Insurance Biller Relationship Specialty Start Date End Date Winston Villatoro OD [facility] [address] [facility] [address] [place] [address] PCP - Ophthalmology Ophthalmology 02/11/13 Denise Woodson APRN FOOD PACKER [address] [place] [address] PCP - General Family Practice 09/21/20 Denise Woodson APRN FOOD PACKER [address] [place] [address] Assigned PCP 07/17/20 Usha Simon APRN FOOD PACKER 909 [facility]121[place], [place] [address] Nurse Practitioner Neurological Surgery 01/24/24 Dangelo Salinas MD [address] [place] [address] Neurology 01/27/24 Anastasia Stearns, RN Lead Fiber Design Engineer 02/06/24 Germaine Lopez, W Community Health Worker Primary Care - CC 02/18/24 Joya Lira [facility] [address] [place], [place] [phone] Pharmacist Pharmacist 05/25/24 Joya Lira [facility] [address] [place] [address] Assigned MTM Pharmacist 06/08/24 Fabi Coates MD 420 [facility] 75 [place], [place] [address] Genetics, Clinical 06/18/24 Danna Cardenas PA-C [address] [place] [address] Assigned Heart and Vascular Provider 07/08/24 Arthur Salas LINK AND LINK KNITTING MACHINE OPERATOR [address] [place], [place] [phone] Assigned Behavioral Health Provider 08/08/24 Randy Maradiaga DO 909 [place] [address] Assigned Neuroscience Provider 08/08/24 documented as of this encounter
--- OUTSIDE RECORDS SUMMARY | 2024-09-20 18:07 | XMS_ITS | Encounter Summary ---
Author Organization [facility] Address [address] [place] [address] Care Team Providers Care Project Management It Specialist Name Role Phone Winston Villatoro OD Unavailable [phone] Denise Woodson APRN ANESTHESIA TECHNICIAN Unavailable [phone] Denise Woodson APRN ANESTHESIA TECHNICIAN Primary Care Provider Usha Simon APRN ANESTHESIA TECHNICIAN Unavailable [phone] Dangelo Salinas MD Unavailable Anastasia Stearns RN Unavailable Germaine Lopez [facility] Unavailable [phone] Joya Lira [facility] Unavailable [phone] Joya Lira [facility] Unavailable Fabi Coates MD Unavailable [phone] Danna CardenasC Unavailable [phone] Arthur Salas REFERRAL AND INFORMATION AIDE Unavailable [phone] Randy Maradiaga DO Unavailable + Encounter Details Date Type Department Care Team (Latest Contact Info) Description 08/14/2024 Travel Social History Tobacco Use Types Packs/Day [...] How often do you attend anabaptist or sikh serv ices? Never 02/28/2024 Do [...] Answer Date Recorded PHQ-2 Score 2 08/04/2024 [facility] [...] building, in an overnight jail, or couch-surfing.) No 05/19/2024 Are you worried [...] on file Legal Sex 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 SUEDE CLEANER Gender Identity Not on file Sexual Orientation [...] st Contact Info) Description 09/25/2024 11:00 AM SUEDE CLEANER Office Visit [facility] [address] [place] [phone] Denise Woodson APRN [facility] [address] [place] [address] 09/29/2024 9:00 AM SUEDE CLEANER Virtual Visit [facility] Neurology [address] 3rd [place] [address] Randy Maradiaga, DO [address] [place] [address] 10/09/2024 1:20 PM SUEDE CLEANER Office Visit [facility] [place] [address] [facility] [address] [place] [phone] Danna Cardenas PA-C [address] [place], [place] [address] 10/15/2024 11:00 AM SUEDE CLEANER Office Visit [facility] [address] [place] [address] Denise Woodson APRN ANESTHESIA TECHNICIAN [address] [place], [place] [address] 10/30/2024 4:00 PM SUEDE CLEANER Virtual Visit [facility] [place] [address] [place] [phone] Lisa Zambrano MD [address] [place], [place] [address] 12/29/2024 12:45 PM CDT Office Visit [facility] [address] [place] [address] Ave [address] [phone] Fabi Coates MD [address] [address] 12/29/2024 1:45 PM CDT Office Visit [facility] [address] [place], [place] [address]e Explorer [address] [phone] Fabi Coates MD [address] [address] 06/01/2025 11:[address] [facility] Care Center Imaging [address] [place] [phone] Robin Zepeda MD [address] [place] [address] 06/04/2025 11:00 AM CDT Office Visit [facility] Neurosurgery Clinic [address] 3rd [place] [phone] Robin Zepeda MD [address] [place] [phone] Usha Simon APRN ANESTHESIA TECHNICIAN [address] [place] [address] documented as of this encounter Goals Goal Patient Goal Type Associated Problems Recent Progress Patient-Stated? Author I would like additional resources and support to manage my health and prevent future avoidable ED visits/hospital admissions Care Plan Increased risk of re-admission 40%( 4 3:02 PM SUEDE CLEANER) Anastasia Talamantes, RN Note: Barriers: diagnosis of multiple, chronic, complex medical conditions, provider availability - wait time to complete appointments, etc. Strengths: motivated, engaged in care coordination Patient expressed understanding of goal: yes Action steps to achieve this goal: 1. I will follow up with my providers as scheduled/recommended - Pulmonology: TBD - Mental Health weekly - PT, OT and AIR CARGO GROUND OPERATIONS SUPERVISOR, continuing through [facility] [place]: - PCP: 09/18/2024 & 10/15/2024. - Vascular [...] clinic with 24/7 after hours services available. Cashier Courtesy Booth will remain available as needed. documented as of this encounter Visit Diagnoses Not on filedocumented in this encounter Additional Health Concerns Active Problems Noted Date Diagnosed Date Increased risk of re-admission 02/18/2024 Assessment Noted Time PHQ-9 Depression Total Score: 5 08/03/20 24 12:49 PM SUEDE CLEANER documented as of this encounter Care Teams Project Management It Specialist Relationship Specialty Start Date End Date Winston Villatoro OD [facility] [place] [address] [facility] [address] [place] [address] PCP - Ophthalmology Ophthalmology 02/11/13 Denise Woodson APRN ANESTHESIA TECHNICIAN [address] [place] [address] PCP - General Family Practice 09/21/20 Denise Woodson APRN ANESTHESIA TECHNICIAN [address] [place] [address] Assigned PCP 07/17/20 Usha Simon APRN ANESTHESIA TECHNICIAN 9 [facility] [id number] [place] [address] Nurse Practitioner Neurological Surgery 01/24/24 Dangelo Salinas MD [address] [place] [address] Neurology 01/27/24 Anastasia Stearns, RN Lead Cashier Courtesy Booth 02/06/24 Germaine Lopez, [facility] Community Health Worker Primary Care - CC 02/18/24 Joya Lira [facility] [address] [place] [address] Pharmacist Pharmacist 05/25/24 Joya Lira [facility] [address] [place] [address] Assigned MTM Pharmacist 06/08/24 Fabi Coates MD [address] [place] [address] Genetics, Clinical 06/18/24 Danna Cardenas PA-C [address] [place] [address] Assigned Heart and Vascular Provider 07/08/24 Arthur Salas [facility] [address] [address] Assigned Behavioral Health Provider 08/08/24 Randy Maradiaga DO [address] [place] [address] Assigned Neuroscience Provider 08/08/24 documented as of this encounter
--- OUTSIDE RECORDS SUMMARY | 2024-09-20 18:07 | XMS_ITS | Encounter Summary ---
Author Organization [place] Address [address] [place] [address] Care Team Providers Care Survey Cad Technician Name Role Phone Winston Villatoro OD Unavailable [phone] Denise Woodson APRN TECHNICAL LABORATORY ASST Unavailable [phone] Denise Woodson APRN TECHNICAL LABORATORY ASST Primary Care Provider Usha Simon APRN TECHNICAL LABORATORY ASST Unavailable [phone] Dangelo Salinas MD Unavailable Anastasia Stearns RN Unavailable [phone] Germaine Lopez [facility] Unavailable Joya Lira [facility] Unavailable Joya Lira [facility] Unavailable Fabi Coates MD Unavailable [phone] Danna CardenasC Unavailable [phone] Arthur Salas MOLDING FITTER Unavailable [phone] Randy Maradiaga DO Unavailable + Encounter Details Date Type Department Care Team (Late st Contact Info) Description 08/14/2024 Ajay Bowden [facility] Neurology [address] 3rd [place] [address] Randy Maradiaga DO [address]09 [place] [address] Social History Tobacco Use Types Packs/Day Years [...] How often do you attend sikhism or mu-ism serv ices? 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 [address] [place] [address] Denise Woodson APRN [facility] [address] [place] [address] 09/29/2024 9:00 AM INTER FOLD ROLL CUTTER Virtual Visit [facility] Neu[facility] [place] [address] [facility] [address] 3rd [place] [phone] Randy Maradiaga, DO [address] [place] [address] 10/09/2024 1:20 PM INTER FOLD ROLL CUTTER Office Visit [facility] Heart [facility] 6[address] [facility] [address] [place] [phone] Danna Cardenas PA-C 6405 [place] [address] 10/15/2024 11:00 AM INTER FOLD ROLL CUTTER Office Visit [facility] [address] [place] [address] Denise Woodson, PARENT AIDE TECHNICAL LABORATORY ASST [address] [place], [place] 828[address] 10/30/2024 4:00 PM INTER FOLD ROLL CUTTER Virtual Visit [facility] Vascular [facility] [place] [address] [place] [phone] Lisa Zambrano MD [address] [place] [address] 12/29/2024 12:45 PM CDT Office Visit [facility] [facility] [address],[place] [phone] Fabi Coates MD 420 [facility] [address] [place], [place] [address] 12/29/2024 1:45 PM CDT [facility] 2450 [facility] Explorer [facility] [address],[place] [address] Fabi Coates MD [address] [place] [facility] [address] [place] [address] 06/01/2025 11:15 AM CDT Appointment [facility] Imaging [address] [place] [place] [address] Robin Zepeda MD [address] [place] [address] 06/04/2025 11:00 AM CDT Office Visit [facility] Neurosurgery Clinic [address] 3rd [place] [phone] Robin Zepeda MD [address] [place] [address] Usha Simon APRN [address] [id number] documented as of this encounter Goals Goal Patient Goal Type Associated Problems Recent Progress Patient-Stated? Author I would like additional resources and support to manage my health and prevent future avoidable ED visits/hospital admissions Care Plan Increased risk of re-admission 40%( 4 3:02 PM INTER FOLD ROLL CUTTER) Anastasia Talamantes, RN Note: Barriers: diagnosis of multiple, chronic, complex medical conditions, provider availability - wait time to complete appointments, etc. Strengths: motivated, engaged in care coordination Patient expressed understanding of goal: yes Action steps to achieve this goal: 1. I will follow up with my providers as scheduled/recommended - Pulmonology: TBD - Mental Health weekly - PT, OT and DIRECTOR OF RESEARCH, continuing through [facility] [place]: - PCP: 09/18/2024 & 10/15/2024. - Vascular [...] clinic with 24/7 after hours services available. Tank Charger will remain available as needed. documented as of this encounter Visit Diagnoses Not on filedocumented in this encounter Additional Health Concerns Active Problems Noted Date Diagnosed Date Increased risk of re-admission 02/18/2024 Infection Onset Date Last Indicated Resolved Time Rule Out COVID-19 09/13/2024 09/13/2024 09/13/2024 12:31 PM INTER FOLD ROLL CUTTER Assessment Noted Time PHQ-9 Depression Total Score: 5 08/03/20 24 12:49 PM INTER FOLD ROLL CUTTER documented as of this encounter Care Teams Survey Cad Technician Relationship Specialty Start Date End Date Winston Villatoro OD [facility] [address] [facility] [address] [place], [place] [phone] PCP - Ophthalmology Ophthalmology 02/11/13 Denise Woodson APRN TECHNICAL LABORATORY ASST [address] [place] [address] PCP - General Family Practice 09/21/20 Denise Woodson APRN TECHNICAL LABORATORY ASST [address] [place] [address] Assigned PCP 07/17/20 Usha Simon APRN TECHNICAL LABORATORY ASST 9 [facility], [place] [address] Nurse Practitioner Neurological Surgery 01/24/24 Dangelo Salinas MD [address] [address] Neurology 01/27/24 Anastasia Stearns, RN Lead Tank Charger 02/06/24 Germaine Lopez, W Community Health Worker Primary Care - CC 02/18/24 Joya Lira RPH [address] [place] [address] Pharmacist Pharmacist 05/25/24 Joya Lira RPH [address] [place] [address] Assigned MTM Pharmacist 06/08/24 Fabi Coates MD [address] [place] [address] [address] [place], [place] 870765 Genetics, Clinical 06/18/24 Danna Cardenas PA-C [address] [place] [address] Assigned Heart and Vascular Provider 07/08/24 Arthur Salas MOLDING FITTER [address] [place] [address] Assigned Behavioral Health Provider 08/08/24 Randy Maradiaga DO 909 [place] [address] Assigned Neuroscience Provider 08/08/24 documented as of this encounter
--- OUTSIDE RECORDS SUMMARY | 2024-09-20 18:07 | XMS_ITS | Encounter Summary ---
Author Organization [place] Address [address] [place] [address] Care Team Providers Care Management Analyst Name Role Phone Winston Villatoro OD Unavailable [phone] Denise Woodson APRN TOOL AND DIE MAKER Unavailable [phone] Denise Woodson APRN TOOL AND DIE MAKER Primary Care Provider Usha Simon APRN TOOL AND DIE MAKER Unavailable [phone] Dangelo Salinas MD Unavailable Anastasia Stearns RN Unavailable Germaine Lopez [facility] Unavailable [phone] Joya Lira [facility] Unavailable Joya Lira [facility] Unavailable Fabi Coates MD Unavailable [phone] Danna CardenasC Unavailable [phone] Arthur Salas DIRECTOR GLOBAL STRATEGIC PUBLISHER SALES Unavailable [phone] Randy Maradiaga DO Unavailable + Encounter Details Date Type Department Care Team (Latest Contact Info) Description 09/11/2024 Travel Social History Tobacco Use Types Packs/Day [...] How often do you attend islam or methodist serv ices? 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 [address] [place] [address] 09/29/2024 9:00 AM LEAD WEB APPLICATION DEVELOPER Virtual Visit [facility] Neurology [address] 3rd [place] [address] Randy Maradiaga, DO 909 [place] [address] 10/09/2024 1:20 PM LEAD WEB APPLICATION DEVELOPER Office Visit [facility] [place] [address] [facility] [address] [place] [phone] Danna Cardenas PA-C 6405 [place], [place] 7[address] 10/15/2024 11:00 AM LEAD WEB APPLICATION DEVELOPER Office Visit [facility] [address] [place] [address] Denise Woodson APRN TOOL AND DIE MAKER [address] [place], [place] 12[address] 10/30/2024 4:00 PM LEAD WEB APPLICATION DEVELOPER Virtual Visit [facility] [place] [address] [place] [phone] Lisa Zambrano MD [address] [place], [place] [address] 12/29/2024 12:45 PM CDT Office Visit [facility] [address] [place] [address] Ave [address] [phone] Fabi Coates MD [address] 8032[address] 12/29/2024 1:45 PM CDT Office Visit [facility] Pediatric [facility]ty Clinic [address] [place], [place] [address]e Explorer [address] [phone] Fabi Coates MD [address] [address] 06/01/2025 11:15 AM CDT Appointment [facility] Imaging [address] [place] [address] [place] [phone] Robin Zepeda MD [address] [place] [address] 543075 06/04/2025 11:00 AM CDT Office Visit [facility] Neurosurgery Clinic [address] 3rd [place] [address] Robin Zepeda MD [address] [place] [id number] Usha Simon APRN TOOL AND DIE MAKER [address] [place] [address] 810745 documented as of this encounter Goals Goal Patient Goal Type Associated Problems Recent Progress Patient-Stated? Author I would like additional resources and support to manage my health and prevent future avoidable ED visits/hospital admissions Care Plan Increased risk of re-admission 40%( 4 3:02 PM LEAD WEB APPLICATION DEVELOPER) Anastasia Talamantes, RN Note: Barriers: diagnosis of multiple, chronic, complex medical conditions, provider availability - wait time to complete appointments, etc. Strengths: motivated, engaged in care coordination Patient expressed understanding of goal: yes Action steps to achieve this goal: 1. I will follow up with my providers as scheduled/recommended - Pulmonology: TBD - Mental Health weekly - PT, OT and SAWING AND ASSEMBLY SUPERVISOR, continuing through [facility] [place]: - PCP: 09/18/2024 & 10/15/2024. - Vascular [...] clinic with 24/7 after hours services available. [employer] Salesperson will remain available as needed. documented as of this encounter Visit Diagnoses Not on filedocumented in this encounter Additional Health Concerns Active Problems Noted Date Diagnosed Date Increased risk of re-admission 02/18/2024 Assessment Noted Time PHQ-9 Depression Total Score: 5 08/03/20 24 12:49 PM LEAD WEB APPLICATION DEVELOPER documented as of this encounter Care Teams Management Analyst Relationship Specialty Start Date End Date Winston Villatoro OD [facility] [place] 701 [facility] [address] [place] [address] PCP - Ophthalmology Ophthalmology 02/11/13 Denise Woodson APRN TOOL AND DIE MAKER [address] [place] [address] PCP - General Family Practice 09/21/20 Denise Woodson APRN TOOL AND DIE MAKER [address] [place] [address] Assigned PCP 07/17/20 Usha Simon APRN TOOL AND DIE MAKER [address] [facility] [id number] [place] [address] Nurse Practitioner Neurological Surgery 01/24/24 Dangelo Salinas MD [address] [place] [address] Neurology 01/27/24 Anastasia Stearns, RN Lead [employer] Salesperson 02/06/24 Germaine Lopez, [facility] Community Health Worker Primary Care - CC 02/18/24 Joya Lira RPH [address] [place] [address] Pharmacist Pharmacist 05/25/24 Joya Lira [facility] [address] [place] [address] Assigned MTM Pharmacist 06/08/24 Fabi Coates MD [address] [place] [address] Genetics, Clinical 06/18/24 Danna Cardenas PA-C 6405 [place] [address] Assigned Heart and Vascular Provider 07/08/24 Arthur Salsa LICSW [address] [address] Assigned Behavioral Health Provider 08/08/24 Randy Maradiaga DO [address] [place] [address] Assigned Neuroscience Provider 08/08/24 documented as of this encounter
--- OUTSIDE RECORDS SUMMARY | 2024-09-20 18:07 | XMS_ITS | Encounter Summary ---
Author Organization [place] Address [address] [place] [address] Care Team Providers Care Curb Machine Operator Name Role Phone Winston Villatoro OD Unavailable [phone] Denise Woodson APRN WOOL SORTER Unavailable [phone] Denise Woodson APRN WOOL SORTER Primary Care Provider Usha Simon APRN WOOL SORTER Unavailable [phone] Dangelo Salinas MD Unavailable Anastasia Stearns RN Unavailable [phone] Germaine Lopez [facility] Unavailable [phone] Joya Lira [facility] Unavailable Joya Lira [facility] Unavailable [phone] Fabi Coates MD Unavailable [phone] Danna CardenasC Unavailable [phone] Arthur Salas HYDROELECTRIC STATION CHIEF Unavailable [phone] Randy Maradiaga DO Unavailable + Encounter Details Date Type Department Care Team (Latest Contact Info) Description 2024 Travel Social History Tobacco Use Types Packs/Day [...] How often do you attend anabaptist or roman catholic serv ices? 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 Not on file Not on file Not on file Not on file Not on file Not on file documented as of this encounter Plan of Treatment Upcoming Encounters Date Type Department Care Team (Late st Contact Info) Description 09/25/2024 11:00 AM REFERRAL RN Office Visit [facility] [address] [place] [phone] Denise Woodson APRN [facility] [address] [place] [address] 09/29/2024 9:00 AM REFERRAL RN Virtual Visit [facility] Neurology [address] 3rd [place] [address] Randy Maradiaga, DO 909 [place] [address] 10/09/2024 1:20 PM REFERRAL RN Office Visit [facility] [place] 6405 [facility] [address] [place] [phone] Danna Cardenas PA-C 6405 [place], [place] [address] 10/15/2024 11:00 AM REFERRAL RN Office Visit [facility] [address] [place] [address] Denise Woodson APRN WOOL SORTER [address] [place], [place] [address] 10/30/2024 4:00 PM REFERRAL RN Virtual Visit [facility] [place] [address] [place] [address] Lisa Zambrano MD [address] [place], [place] [address] 12/29/2024 12:45 PM CDT Office Visit [facility] [address] [place] [address] Ave [address] [phone] Fabi Coates MD [address] [address] 12/29/2024 1:45 PM CDT Office Visit [facility]ty Clinic [address] [place], [place] [address]e Explorer [address] [phone] Fabi Coates MD [address] [address] 06/01/2025 11:15 AM CDT Appointment [facility] Imaging [address] [place] [address] [place] [address] Robin Zepeda MD [address] [place] [address] 1618[address] 06/04/2025 11:00 AM CDT Office Visit [facility] [address] 3rd [place] [address] Robin Zepeda MD [address] [place] [address] [phone] Usha Simon APRN WOOL SORTER [address] [place] [address] 436055 documented as of this encounter Goals Goal Patient Goal Type Associated Problems Recent Progress Patient-Stated? Author I would like additional resources and support to manage my health and prevent future avoidable ED visits/hospital admissions Care Plan Increased risk of re-admission 40%( 4 3:02 PM REFERRAL RN) Anastasia Talamantes, RN Note: Barriers: diagnosis of multiple, chronic, complex medical conditions, provider availability - wait time to complete appointments, etc. Strengths: motivated, engaged in care coordination Patient expressed understanding of goal: yes Action steps to achieve this goal: 1. I will follow up with my providers as scheduled/recommended - Pulmonology: TBD - Mental Health weekly - PT, OT and VOCATIONAL COUNSELOR, continuing through [facility] [place]: - PCP: 09/18/2024 & 10/15/2024. - Vascular [...] clinic with 24/7 after hours services available. Sizing Machine Tender will remain available as needed. documented as of this encounter Visit Diagnoses Not on filedocumented in this encounter Additional Health Concerns Active Problems Noted Date Diagnosed Date Increased risk of re-admission 02/18/2024 Assessment Noted Time PHQ-9 Depression Total Score: 5 08/03/20 24 12:49 PM REFERRAL RN documented as of this encounter Care Teams Curb Machine Operator Relationship Specialty Start Date End Date Winston Villatoro OD [facility] [place] 701 [facility] [address] [place] [address] PCP - Ophthalmology Ophthalmology 02/11/13 Denise Woodson APRN WOOL SORTER [address] [place] [address] PCP - General Family Practice 09/21/20 Denise Woodson APRN WOOL SORTER [address] [place] [address] Assigned PCP 07/17/20 Usha Simon APRN WOOL SORTER 9 [facility] [id number] [place] [address] Nurse Practitioner Neurological Surgery 01/24/24 Dangelo Salinas MD [address] [place] [address] Neurology 01/27/24 Anastasia Stearns, RN Lead Sizing Machine Tender 02/06/24 Germaine Lopez, [facility] Community Health Worker Primary Care - CC 02/18/24 Joya Lira RPH [address] [place] [address] Pharmacist Pharmacist 05/25/24 Joya Lira [facility] [address] [place] [address] Assigned MTM Pharmacist 06/08/24 Fabi Coates MD [address] [place] [address] Genetics, Clinical 06/18/24 Danna Cardenas PA-C [address] [place] [address] Assigned Heart and Vascular Provider 07/08/24 Arthur Salas LICSW [address] [address] Assigned Behavioral Health Provider 08/08/24 Randy Maradiaga DO [address] [place] [address] Assigned Neuroscience Provider 08/08/24 documented as of this encounter
--- OUTSIDE RECORDS SUMMARY | 2024-09-20 18:07 | XMS_ITS | Encounter Summary ---
Author Organization [place] Address [address] [place] [address] Care Team Providers Care Field Service Specialist Name Role Phone Winston Villatoro OD Unavailable [phone] Denise Woodson APRN WOOL HAT FLANGER Unavailable [phone] Denise Woodson APRN WOOL HAT FLANGER Primary Care Provider Usha Simon APRN WOOL HAT FLANGER Unavailable [phone] Dangelo Salinas MD Unavailable Anastasia Stearns RN Unavailable [phone] Germaine Lopez [facility] Unavailable Joya Lira [facility] Unavailable Joya Lira [facility] Unavailable Fabi Coates MD Unavailable [phone] Danna CardenasC Unavailable [phone] Arthur Salas ADMINISTRATIVE SUPPORT CLERK Unavailable [phone] Randy Maradiaga DO Unavailable + Encounter Details Date Type Department Care Team (Latest Contact Info) Description 09/04/2024 Travel Social History Tobacco Use Types Packs/Day [...] How often do you attend temple or yazdanism serv ices? 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 Not on file Not on file Not on file Not on file Not on file Not on file documented as of this encounter Plan of Treatment Upcoming Encounters Date Type Department Care Team (Late st Contact Info) Description 09/25/2024 11:00 AM AIRCRAFT SHIPPING CHECKER Office Visit [facility] [address] [place] [phone] Denise Woodson APRN [facility] [address] [place] [address] 09/29/2024 9:00 AM AIRCRAFT SHIPPING CHECKER Virtual Visit [facility] Neu[facility] [address] 3rd [place] [address] Randy Maradiaga, DO 909 [place] [address] 10/09/2024 1:20 PM AIRCRAFT SHIPPING CHECKER Office Visit [facility] [place] [address] [facility] [address] [place] [phone] Danna Cardenas PA-C 6405 [place], [place] [address] 10/15/2024 11:00 AM AIRCRAFT SHIPPING CHECKER Office Visit [facility] [address] [place] [address] Denise Woodson APRN WOOL HAT FLANGER [address] [place], [place] [phone] 10/30/2024 4:00 PM AIRCRAFT SHIPPING CHECKER Virtual Visit [facility] [place] [address] [place] [phone] Lisa Zambrano MD [address] [place], [place] [address] 12/29/2024 12:45 PM CDT Office Visit [facility] [address] [place] [address] Ave [address] [phone] Fabi Coates MD [address] [address] 12/29/2024 1:45 PM CDT Office Visit [facility] [address] [place], [place] [address]e Explorer [address] [phone] Fabi Coates MD [address] [address] 06/01/2025 11:15 AM CDT Appointment [facility] Imaging [address] [place] [phone] Robin Zepeda MD [address] [place] [address] 06/04/2025 11:00 AM CDT Office Visit [facility] [address] 3rd [place] [phone] Robin Zepeda MD [address] [place] [address] [phone] Usha Simon APRN WOOL HAT FLANGER [address] [place] [address] 444865 documented as of this encounter Goals Goal Patient Goal Type Associated Problems Recent Progress Patient-Stated? Author I would like additional resources and support to manage my health and prevent future avoidable ED visits/hospital admissions Care Plan Increased risk of re-admission 40%( 4 3:02 PM AIRCRAFT SHIPPING CHECKER) Anastasia Talamantes, RN Note: Barriers: diagnosis of multiple, chronic, complex medical conditions, provider availability - wait time to complete appointments, etc. Strengths: motivated, engaged in care coordination Patient expressed understanding of goal: yes Action steps to achieve this goal: 1. I will follow up with my providers as scheduled/recommended - Pulmonology: TBD - Mental Health weekly - PT, OT and MEDICAL LEGAL INVESTIGATOR, continuing through [facility] [place]: - PCP: 09/18/2024 & 10/15/2024. - Vascular [...] clinic with 24/7 after hours services available. Global Marketing Operations Manager will remain available as needed. documented as of this encounter Visit Diagnoses Not on filedocumented in this encounter Additional Health Concerns Active Problems Noted Date Diagnosed Date Increased risk of re-admission 02/18/2024 Assessment Noted Time PHQ-9 Depression Total Score: 5 08/03/20 24 12:49 PM AIRCRAFT SHIPPING CHECKER documented as of this encounter Care Teams Field Service Specialist Relationship Specialty Start Date End Date Winston Villatoro OD [facility] [place] [address] [facility] [address] [place] [address] PCP - Ophthalmology Ophthalmology 02/11/13 Denise Woodson APRN WOOL HAT FLANGER [address] [place] [address] PCP - General Family Practice 09/21/20 Denise Woodson APRN WOOL HAT FLANGER [address] [place] [address] Assigned PCP 07/17/20 Usha Simon APRN WOOL HAT FLANGER 9 [facility] [id number] [address] Nurse Practitioner Neurological Surgery 01/24/24 Dangelo Salinas MD [address] [place] [address] Neurology 01/27/24 Anastasia Stearns, RN Lead Global Marketing Operations Manager 02/06/24 Germaine Lopez, [facility] Community Health Worker Primary Care - CC 02/18/24 Joya Lira RPH [address] [address] Pharmacist Pharmacist 05/25/24 Joya Lira [facility] [address] [place] [address] Assigned MTM Pharmacist 06/08/24 Fabi Coates MD [address] [place] [address] Genetics, Clinical 06/18/24 Danna Cardenas PA-C 6[address] [place] [address] Assigned Heart and Vascular Provider 07/08/24 Arthur Salas LICSW [address] [address] Assigned Behavioral Health Provider 08/08/24 Randy Maradiaga DO [address] [place] [address] Assigned Neuroscience Provider 08/08/24 documented as of this encounter
--- OUTSIDE RECORDS SUMMARY | 2024-09-20 18:07 | XMS_ITS | Encounter Summary ---
Author Organization [place] Address [address] [place] [address] Care Team Providers Care Digital Camera Technician Name Role Phone Winston Villatoro OD Unavailable [phone] Denise Woodson APRN SURGICAL GARMENT ASSEMBLER Unavailable [phone] Denise Woodson APRN SURGICAL GARMENT ASSEMBLER Primary Care Provider Usha Simon APRN SURGICAL GARMENT ASSEMBLER Unavailable Dangelo Salinas MD Unavailable Anastasia Stearns RN Unavailable Germaine Lopez [facility] Unavailable [phone] Joya Lira [facility] Unavailable Joya Lira [facility] Unavailable [phone] Fabi Coates MD Unavailable [phone] Danna Cardenas PA-C Unavailable [phone] Arthur Salas PRINT PRODUCER Unavailable [phone] Randy Maradiaga DO Unavailable + Reason for Visit * Reason Comments Follow Up stroke Encounter Details Date Type Department Care Team (Late st Contact Info) Description 09/04/2024 11:00 AM COMPRESSOR STATION CHIEF ENGINEER Office Visit [address] [address] Chintan DeniseBARRERA SURGICAL GARMENT ASSEMBLER [address] [place] [address] Anxiety (Primary Dx); History of stroke Social History Tobacco Use Types Packs/Day Years [...] How often do you attend moravian or scientologist serv ices? 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 Not on file Not on file Not on file Not on file Not on file Not on file Not on file documented as of this encounter Last Filed Vital Signs Vital Sign Reading Time Taken Comments Blood Pressure 131/81 09/04/2024 10:41 AM COMPRESSOR STATION CHIEF ENGINEER Pulse 76 09/04/2024 10:41 AM COMPRESSOR STATION CHIEF ENGINEER Temperature 36.4 C (97.6 F) 09/04/2024 10:41 AM COMPRESSOR STATION CHIEF ENGINEER Respiratory Rate 16 09/04/2024 10:4 1 AM COMPRESSOR STATION CHIEF ENGINEER Oxygen Saturation 96% 09/04/2024 10: 41 AM COMPRESSOR STATION CHIEF ENGINEER Inhaled Oxygen Concentration - - Weight 95.7 kg (210 lb 14.4 oz) 024 10:41 AM COMPRESSOR STATION CHIEF ENGINEER Height 174 cm (5' 8.5) 09/04/2024 10:4 1 AM COMPRESSOR STATION CHIEF ENGINEER Body Mass Index 31.6 09/04/2024 10:41 AM COMPRESSOR STATION CHIEF ENGINEER documented in this encounter Progress Notes * Denise Woodson APRN SURGICAL GARMENT ASSEMBLER - 09/04/2024 11:00 AM CST Assessment & Plan Anxiety Improved/stable. Continue with current management. - citalopram (CELEXA) 10 MG tablet; Take 0.5 tablets (5 mg) by mouth daily. History of stroke Symptoms improving slowly with time. Continue with current plan. Increase work hours as requested. Paperwork completed. The longitudinal plan of care for the diagnosis(es)/condition(s) as documented were addressed during this visit. Due to the added complexity in care, I will continue to support Alcon in the subsequent management and with ongoing continuity of care. BMI Estimated body mass index is 31.6 kg/m?? as calculated from the following: Height as of this encounter: 1.74 m (5' 8.5). Weight as of this encounter: 95.7 kg (210 lb 14.4 oz). Juan M Rondon is a 48 year old, presenting for the following health issues: Follow Up (stroke) 09/04/2024 10:36 AM Additional Questions Roomed by Paula CHAMPION Accompanied by self 09/04/2024 10:36 AM Patient Reported Additional Medications Patient reports taking the following new medications n/a History of Present Illness Reason for visit: Stroke follow-up/work She eats 2-3 servings of fruits and vegetables daily.She consumes 0 sweetened beverage(s) daily.Sheexercises with enough effort to increase her heart rate 9 or less minutes per day. She exercises with enough effort to increase her heart rate 3 or less days per week. She is taking medications regularly. Interested in increasing hours to 20 hours per week for four weeks starting 09/13/24. Speech and PT are ending at the end of August. She is receiving acupuncture. Started this in July. This has been helpful. She is going every 2 weeks. She stopped her statin. [place] this was negatively affecting her cognition. She made diet changes, now gluten and dairy free. Review of Systems Constitutional, HEENT, cardiovascular, pulmonary, gi and gu systems are negative, except as otherwise noted. Objective BP 131/81 (BP Location: Right arm, Patient Position: Sitting, Cuff Size: Adult Large) Pulse 76 Temp 97.6 ??F (36.4 ??C) (Oral) Resp 16 Ht 1.74 m (5' 8.5) Wt 95.7 kg (210 lb 14.4 oz) LMP 01/07/2006 SpO2 96% BMI 31.60 kg/m?? Body mass index is 31.6 kg/m??. Physical Exam GENERAL: alert and no distress PSYCH: mentation appears normal, affect normal/bright Signed Electronically by: Denise Woodson APRN CNP RESSOR STATION CHIEF ENGINEER * Qing Copeland - 09/04/2024 11:00 AM CST Workability form completed during appointment. Faxed to number on form and sent to patient via [employer]. Qing Copeland Lead Director Client [facility] RESSOR STATION CHIEF ENGINEER documented in this encounter Plan of Treatment Upcoming Encounters Date Type Department Care Team (Late st Contact Info) Description 09/25/2024 11:00 AM COMPRESSOR STATION CHIEF ENGINEER Office Visit [facility] [address] [place] [address] Denise Woodson APRN SURGICAL GARMENT ASSEMBLER [address] [employer], [place] [phone] 09/29/2024 9:00 AM COMPRESSOR STATION CHIEF ENGINEER Virtual Visit [facility]rology Clinic [address] [place] [address] Randy Maradiaga, [address] [place] [address] 10/09/2024 1:20 PM COMPRESSOR STATION CHIEF ENGINEER Office Visit [facility] Heart [facility] [address] [facility] [address] [place] [phone] Danna Cardenas PA-C 6405 [place] [address] 10/15/2024 11:00 AM COMPRESSOR STATION CHIEF ENGINEER [facility] [address] [place] [phone] Denise Woodson, BARRERA SURGICAL GARMENT ASSEMBLER [address] [place] [employer], [place] [address] 10/30/2024 4:00 PM COMPRESSOR STATION CHIEF ENGINEER Virtual Visit [facility] Vascular [facility] [address] [place] [phone] Lisa Zambrano MD [address] [place] [address] 12/29/2024 12:45 PM CDT Office Visit [facility]ty [facility] [address] [place] [address] [phone] Fabi Coates MD [address] [place] [address] 12/29/2024 1:45 PM CDT Office Visit [facility] [address] [place] [phone] Fabi Coates MD [address] [place] [address] 06/01/2025 11:15 AM CDT Appointment [facility] Imaging [address] [facility] [address] [place] [phone] Robin Zepeda MD [address] [place] [address] 336875 06/04/2025 11:00 AM CDT Office Visit [facility] Neurosurgery Clinic [address] 3rd [place] [phone] Robin Zepeda MD [address] [place] [address] 217795 Usha Simon APRN SURGICAL GARMENT ASSEMBLER [address] [place] [address] 925325 documented as of this encounter Goals Goal Patient Goal Type Associated Problems Recent Progress Patient-Stated? Author I would like additional resources and support to manage my health and prevent future avoidable ED visits/hospital admissions Care Plan Increased risk of re-admission 40%( 4 3:02 PM COMPRESSOR STATION CHIEF ENGINEER) Anastasia Talamantes, RN Note: Barriers: diagnosis of multiple, chronic, complex medical conditions, provider availability - wait time to complete appointments, etc. Strengths: motivated, engaged in care coordination Patient expressed understanding of goal: yes Action steps to achieve this goal: 1. I will follow up with my providers as scheduled/recommended - Pulmonology: TBD - Mental Health weekly - PT, OT and DRAW FURNACE TENDER, continuing through [facility] [place]: - PCP: 09/18/2024 & 10/15/2024. - Vascular [...] clinic with 24/7 after hours services available. Camera Prototyping Engineer will remain available as needed. documented as of this encounter Visit Diagnoses Diagnosis Anxiety- Primary Anxiety state, unspecified History of stroke Transient ischemic attack (TIA), and cerebral infarction without residual deficits documented in this encounter Additional Health Concerns Active Problems Noted Date Diagnosed Date Increased risk of re-admission 02/18/2024 Assessment Noted Time PHQ-9 Depression Total Score: 5 08/03/20 24 12:49 PM COMPRESSOR STATION CHIEF ENGINEER documented as of this encounter Care Teams Digital Camera Technician Relationship Specialty Start Date End Date Winston Villatoro OD [facility] 701 [facility] 95 [place] [address] PCP - Ophthalmology Ophthalmology 02/11/13 Denise Woodson APRN SURGICAL GARMENT ASSEMBLER [address] [place] [address] PCP - General Family Practice 09/21/20 Denise Woodson APRN SURGICAL GARMENT ASSEMBLER [address] [place] [address] Assigned PCP 07/17/20 Usha Simon APRN SURGICAL GARMENT ASSEMBLER 9 [facility] [id number] [place] [address] Nurse Practitioner Neurological Surgery 01/24/24 Dangelo Salinas MD [address] [facility] [address] [id number] Neurology 01/27/24 Anastasia Stearns, RN Lead Camera Prototyping Engineer 02/06/24 Germaine Lopez, CH[facility] Community Health Worker Primary Care - CC 02/18/24 Joya Lira RPH [address] [place] [address] Pharmacist Pharmacist 05/25/24 Joya Lira RPH [address] [place] [address] Assigned MTM Pharmacist 06/08/24 Fabi Coates MD [address] [place] [address] [phone] Genetics, Clinical 06/18/24 Danna Cardenas PA-C [facility]5 [place] [address] Assigned Heart and Vascular Provider 07/08/24 Arthur Salas LICSW [address] [id number] Assigned Behavioral Health Provider 08/08/24 Randy Maradiaga DO [address] [place] [address] 800805 Assigned Neuroscience Provider 08/08/24 documented as of this encounter
--- OUTSIDE RECORDS SUMMARY | 2024-09-20 18:07 | XMS_ITS | Encounter Summary ---
Author Organization [place] Address [address] [place] [address] Care Team Providers Care Water Service Supervisor Name Role Phone Winston Villatoro OD Unavailable [phone] Denise Woodson APRN CLAMMER Unavailable [phone] Denise Woodson APRN CLAMMER Primary Care Provider Usha Simon APRN CLAMMER Unavailable [phone] Dangelo Salinas MD Unavailable Anastasia Stearns RN Unavailable Germaine Lopez [facility] Unavailable Joya Lira [facility] Unavailable [phone] Joya Lira [facility] Unavailable Fabi Coates MD Unavailable [phone] Danna CardenasC Unavailable [phone] Arthur Salas BRANCH GENERAL MANAGER Unavailable [phone] Randy Maradiaga DO Unavailable + Encounter Details Date Type Department Care Team (Latest Contact Info) Description 08/17/2024 Travel Social History Tobacco Use Types Packs/Day [...] How often do you attend restoration or religion serv ices? 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 Not on file Not on file Not on file Not on file Not on file Not on file Not on file documented as of this encounter Plan of Treatment Upcoming Encounters Date Type Department Care Team (Late st Contact Info) Description 09/25/2024 11:00 AM CTO Office Visit [facility] [address] [place] [phone] Denise Woodson APRN [facility] [address] [place] [address] 09/29/2024 9:00 AM CTO Virtual Visit [facility] Neurology [address] 3rd [place] [address] Randy Maradiaga, DO 909 [place] [address] 10/09/2024 1:20 PM CTO Office Visit [facility] [place] [address] [facility] [address] [place] [phone] Danna Cardenas PA-C 6405 [place], [place] 297225 10/15/2024 11:00 AM CTO Office Visit [facility] [address] [place] [address] Denise Woodson APRN CLAMMER [address] [place], [place] [phone] 10/30/2024 4:00 PM CTO Virtual Visit [facility] [place] [address] [place] [phone] Lisa Zambrano MD [address] [place], [place] [address] 12/29/2024 12:45 PM CDT Office Visit [facility] [address] [place] [address] Ave [address] [phone] Fabi Coates MD [address] 883225 12/29/2024 1:45 PM CDT Office Visit [facility] Pediatric Specialty Clinic [address] [place], [place] [address]e Explorer [address] [phone] Fabi Coates MD [address] 960[address] 06/01/2025 11:15 AM CDT Appointment [facility] Imaging [address] [place] [phone] Robin Zepeda MD [address] [place] [address] 9[address] 06/04/2025 11:00 AM CDT Office Visit [facility] Neurosurgery Clinic [address] 3rd [place] [phone] Robin Zepeda MD [address] [place] [address] [phone] Usha Simon APRN CLAMMER [address] [place] [address]885 documented as of this encounter Goals Goal Patient Goal Type Associated Problems Recent Progress Patient-Stated? Author I would like additional resources and support to manage my health and prevent future avoidable ED visits/hospital admissions Care Plan Increased risk of re-admission 40%( 4 3:02 PM CTO) Anastasia Talamantes, RN Note: Barriers: diagnosis of multiple, chronic, complex medical conditions, provider availability - wait time to complete appointments, etc. Strengths: motivated, engaged in care coordination Patient expressed understanding of goal: yes Action steps to achieve this goal: 1. I will follow up with my providers as scheduled/recommended - Pulmonology: TBD - Mental Health weekly - PT, OT and HIGH SCHOOL HISTORY TEACHER, continuing through [facility] [place]: - PCP: 09/18/2024 & 10/15/2024. - Vascular [...] clinic with 24/7 after hours services available. Road Packer Operator will remain available as needed. documented as of this encounter Visit Diagnoses Not on filedocumented in this encounter Additional Health Concerns Active Problems Noted Date Diagnosed Date Increased risk of re-admission 02/18/2024 Assessment Noted Time PHQ-9 Depression Total Score: 5 08/03/20 24 12:49 PM CTO documented as of this encounter Care Teams Water Service Supervisor Relationship Specialty Start Date End Date Winston Villatoro OD [facility] [address] [facility] [address] [place] [address] PCP - Ophthalmology Ophthalmology 02/11/13 Denise Woodson APRN CLAMMER [address] [place] [address] PCP - General Family Practice 09/21/20 Denise Woodson APRN CLAMMER [address] [place] [address] Assigned PCP 07/17/20 Usha Simon APRN CLAMMER 9 [facility] [id number] [place] [address] Nurse Practitioner Neurological Surgery 01/24/24 Dangelo Salinas MD [address] [place] [address] Neurology 01/27/24 Anastasia Stearns, RN Lead Road Packer Operator 02/06/24 Germaine Lopez, [facility] Community Health Worker Primary Care - CC 02/18/24 Joya Lira RPH [address] [place] [address] Pharmacist Pharmacist 05/25/24 Joya Lira [facility] [address] [place] [address] Assigned MTM Pharmacist 06/08/24 Fabi Coates MD [address] [place] [address] Genetics, Clinical 06/18/24 Danna Cardenas PA-C [address]405 [place] [address] Assigned Heart and Vascular Provider 07/08/24 Arthur Salas LICSW [address] [address] Assigned Behavioral Health Provider 08/08/24 Randy Maradiaga DO [address] [place] [address] Assigned Neuroscience Provider 08/08/24 documented as of this encounter
--- OUTSIDE RECORDS SUMMARY | 2024-09-20 18:07 | XMS_ITS | Encounter Summary ---
Author Organization [facility] Address [address] [place] [address] Care Team Providers Care Vibrating Screed Operator Name Role Phone Winston Villatoro OD Unavailable Denise Woodson APRN MANAGER MATH Unavailable [phone] Denise Woodson APRN MANAGER MATH Primary Care Provider Usha Simon APRN MANAGER MATH Unavailable [phone] Dangelo Salinas MD Unavailable Anastasia Stearns RN Unavailable Germaine Lopez [facility] Unavailable [phone] Joya Lira [facility] Unavailable [phone] Joya Lira [facility] Unavailable Fabi Coates MD Unavailable [phone] Danna CardenasC Unavailable [phone] Arthur Salas MANAGER PRIMARY Unavailable [phone] Randy Maradaiga DO Unavailable + Encounter Details Date Type Department Care Team (Late st Contact Info) Description 08/17/2024 Abstract [facility] Neuropsychology [address] 3rd [place] [address] Tulio Ogden, PhD [address] [address] Social History Tobacco Use Types Packs/Day Years [...] How often do you attend spiritism or hindu serv ices? 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 Rondon 77 AGE 48 SEX Female HANDEDNESS Right EDUCATION 14 MEEKS 08/17/24 PROVIDER EW TECH KB STATION OP ORIENTATION Time [address] Presidents WAIS-IV FSIQ: WMI: 111 VCI: PSI: ZAYDA: RDS: 10 Raw ScS Similarities 27 10 Block Design 51 13 Digit Span 31 12 Arithmetic 17 12 Coding 66 10 JOVANNA-O COMPLEX FIGURE Raw T %ile Copy 32 6-10 Time to Copy 267 >16 WRAT 5 SS %ile GE Reading 108 70 >12.9 COWAT FAS Raw 29 ScS 8 T 38 ANIMAL FLUENCY Raw 17 ScS 9 T 41 [place] NAMING TEST Raw 56 /60 ScS 10 T 45 COMPLEX IDEATIONAL MATERIAL Raw 12 ScS 12 T 56 TRAIL MAKING TEST Time Errors ScS T A 41 0 7 35 B 71 0 10 45 DKEFS C/W INTERFERENCE Raw ScS Color 29 10 Word 19 12 Inhibition 56 10 Inhib/Switch 58 11 VIOLA H-15 Raw 15 %ile 86 LEMON FACIAL RECOGNITION Raw 48 Interp. Normal BDI-II Raw 27 Interp. Moderate SHAYY Raw 15 Interp. Mild HVLT 1 Raw T Trial 1 7 Trial 2 12 Trial 3 11 Learning 5 Total Recall 30 53 Delayed Recall 11 54 Percent Retention 92% 50 True Positives 12 False Positives 0 Disc. Index 12 57 BVMT 1 Raw T/%ile Trial 1 9 Trial 2 10 Trial 3 12 Learning 3 Total Recall 31 62 Delayed Recall 12 64 Percent Retention 100% >16 Recognition Hits 6 Recognition F.P 0 Disc. Index 6 >16 CLOCK DRAWING Command 3 Copy 3 DCT E-Score 6 documented in this encounter Plan of Treatment Upcoming Encounters Date Type Department Care Team (Late st Contact Info) Description 09/25/2024 11:00 AM NNP Office Visit [facility] [address] [place] [phone] Denise Woodson APRN MANAGER MATH [address] [place] [address] 09/29/2024 9:00 AM NNP Virtual Visit [facility] Neurology [address] 3rd [place] [address] Randy Maradiaga, [address] [place] [address] 10/09/2024 1:20 PM NNP Office Visit [facility] Heart [facility] [address] [facility] [address] [place] [phone] Danna Cardenas PA-C 6405 [place] [address] 10/15/2024 11:00 AM N[facility] [address] [place] [address] Denise Woodson APRN MANAGER MATH [address] [place], [place] [phone] 10/30/2024 4:00 PM NNP Virtual Visit [facility] Vascular [facility] [address] [place] [phone] Lisa Zambrano MD [address] [place], [place] [address] 12/29/2024 12:45 PM CDT Office Visit [facility] [address] [place] [address] [phone] Fabi Coates MD [address] [place] [address] 12/29/2024 1:45 PM CDT Office Visit [facility] [address] [place] [phone] Fabi Coates MD [address] [place] [address] 06/01/2025 11:15 AM CDT Appointment [facility] Imaging [address] [facility] [address] [place] [phone] Robin Zepeda MD [address] [place] [address] 06/04/2025 11:00 AM CDT Office Visit [facility] Neurosurgery Clinic [address] 3rd [place] [phone] Robin Zepeda MD [address] [place] [phone] Usha Simon APRN MANAGER MATH [address] 144565 documented as of this encounter Goals Goal Patient Goal Type Associated Problems Recent Progress Patient-Stated? Author I would like additional resources and support to manage my health and prevent future avoidable ED visits/hospital admissions Care Plan Increased risk of re-admission 40%( 4 3:02 PM NNP) Anastasia Talamantes, RN Note: Barriers: diagnosis of multiple, chronic, complex medical conditions, provider availability - wait time to complete appointments, etc. Strengths: motivated, engaged in care coordination Patient expressed understanding of goal: yes Action steps to achieve this goal: 1. I will follow up with my providers as scheduled/recommended - Pulmonology: TBD - Mental Health weekly - PT, OT and SECOND CUTTER, continuing through [facility] [place]: - PCP: 09/18/2024 & 10/15/2024. - Vascular [...] clinic with 24/7 after hours services available. Lab Analyst will remain available as needed. documented as of this encounter Visit Diagnoses Not on filedocumented in this encounter Additional Health Concerns Active Problems Noted Date Diagnosed Date Increased risk of re-admission 02/18/2024 Assessment Noted Time PHQ-9 Depression Total Score: 5 08/03/20 24 12:49 PM NNP documented as of this encounter Care Teams Vibrating Screed Operator Relationship Specialty Start Date End Date Winston Villatoro OD [facility] [address] [facility] [address] [place] [address] PCP - Ophthalmology Ophthalmology 02/11/13 Denise Woodson APRN MANAGER MATH [address] [place] [address] PCP - General Family Practice 09/21/20 Denise Woodson APRN MANAGER MATH [address] [place] [address] Assigned PCP 07/17/20 Usha Simon APRN MANAGER MATH 9 [facility] [id number] [address] Nurse Practitioner Neurological Surgery 01/24/24 Dangelo Salinas MD [address] [facility] [address] [id number] Neurology 01/27/24 Anastasia Stearns, RN Lead Lab Analyst 02/06/24 Germaine oLpez, CHW Community Health Worker Primary Care - CC 02/18/24 Joya Lira RPH [address] [place] [address] Pharmacist Pharmacist 05/25/24 Joya Lira RPH [address] [place] [address] Assigned MTM Pharmacist 06/08/24 Fabi Coates MD [address] [place] [address] 75 [place], [place] [phone] Genetics, Clinical 06/18/24 Danna Cardenas PA-C 6[address] [place] [address] Assigned Heart and Vascular Provider 07/08/24 Arthur Salas LICSW [address] [phone] Assigned Behavioral Health Provider 08/08/24 Randy Maradiaga DO 909 [place], [place] 949[address] Assigned Neuroscience Provider 08/08/24 documented as of this encounter
--- OUTSIDE RECORDS SUMMARY | 2024-09-20 18:08 | XMS_ITS | Encounter Summary ---
Author Organization [facility] [facility] Address [address] [place] [address] Care Team Providers Care Patent Paralegal Name Role Phone Winston Villatoro OD Unavailable [phone] Denise Woodson APRN CYCLE ANALYST Unavailable [phone] Denise Woodson APRN CYCLE ANALYST Primary Care Provider Usha Simon APRN CYCLE ANALYST Unavailable [phone] Dangelo Salinas MD Unavailable Anastasia Stearns RN Unavailable Germaine Lopez CH Unavailable [phone] Lisa Zambrano MD Unavailable + [phone] Raul Hoyos MD Unavailable Joya Lira [facility] Unavailable [phone] Joya Lira [facility] Unavailable [phone] Fabi Coates MD Unavailable [phone] Robin Catalan MD Unavailable [phone] Danna Cardenas PA-C Unavailable [phone] Felicita Desai RN Unavailable Unavailab Arthur Rios Unavailable [phone] Randy Maradiaga DO Unavailable + Encounter Details Date Type Department Care Team (Late st Contact Info) Description 06/28/2024 MyC Medical Advice [facility] [address] [place] [address] Denise Woodson APRN CYCLE ANALYST [address] [place] [address] Social History Tobacco Use [...] How often do you attend cheondoism or islam serv ices? 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 Pt responded and would like to trial celexa again at a low dose. Pharmacy T'd up. CHELSEY Luke, RN [facility] 07/02/2024 at 9:48 AM * Telephone Encounter - Denise Woodson APRN CNP - 06/30/2024 8:32 AM CDT [...] to provider to advise. Qing Copeland Lead Risk Control Specialist [facility] documented in this encounter Plan of Treatment Upcoming Encounters Date Type Department Care Team (Late st Contact Info) Description 09/25/2024 11:00 AM LINE PILOT Office Visit [facility] [address] [place] [address] Denise Woodson APRN CYCLE ANALYST [address] [place], [place] [phone] 09/29/2024 9:00 AM LINE PILOT Virtual Visit [facility] Neurology [address] 3rd [place] [address] Randy Maradiaga, DO 909 [place] [address] 10/09/2024 1:20 PM LINE PILOT Office Visit [facility] Heart [facility] [address] [facility] [address] [place] [phone] Danna Cardenas PA-C 6405 [place], [place] [address]785 10/15/2024 11:00 AM LINE PILOT Office Visit [facility] [address] [place] [address] Denise Woodson APRN CYCLE ANALYST [address] [place], [place] [address] 10/30/2024 4:00 PM LINE PILOT Virtual Visit [facility] Vascular Clinic [place] [address] [place] [phone] Lisa Zambrano MD [address] [place], [place] [address] 12/29/2024 12:45 PM CDT Office Visit [facility] [address] [place], [place] [address]e Explorer [address] [phone] Fabi Coates MD [address] [address] 12/29/2024 1:45 PM CDT Office Visit [facility] Pediatric Specialty Clinic [address] [place], [place] [address] Explorer [address] [phone] Fabi Coates MD 420 [facility] 75 [place], [place] [address] 06/01/2025 11:15 AM CDT Appointment [facility] Imaging [address] [place] [phone] Robin Zepeda MD [address] [place] [address]32[address] 06/04/2025 11:00 AM CDT Office Visit [facility] Neurosurgery Clinic [address] 3rd [place] [phone] Robin Zepeda MD [address] [place] [address] [phone] Usha Simon APRN CYCLE ANALYST [address] [place] [phone] documented as of this encounter Goals Goal Patient Goal Type Associated Problems Recent Progress Patient-Stated? Author I would like additional resources and support to manage my health and prevent future avoidable ED visits/hospital admissions Care Plan Increased risk of re-admission 40%( 4 3:02 PM LINE PILOT) Anastasia Talamantes, RN Note: Barriers: diagnosis of multiple, chronic, complex medical conditions, provider availability - wait time to complete appointments, etc. Strengths: motivated, engaged in care coordination Patient expressed understanding of goal: yes Action steps to achieve this goal: 1. I will follow up with my providers as scheduled/recommended - Pulmonology: TBD - Mental Health weekly - PT, OT and CLERICAL ADJUSTER, continuing through [facility] [place]: - PCP: 09/18/2024 & 10/15/2024. - Vascular [...] clinic with 24/7 after hours services available. Crankshaft Straightener will remain available as needed. documented as of this encounter Visit Diagnoses Not on filedocumented in this encounter Additional Health Concerns Active Problems Noted Date Diagnosed Date Increased risk of re-admission 02/18/2024 Infection Onset Date Last Indicated Resolved Time Rule Out COVID-19 09/13/2024 09/13/2024 09/13/2024 12:31 PM LINE PILOT Assessment Noted Time PHQ-9 Depression Total Score: 5 03/17/20 24 9:45 AM CDT documented as of this encounter Care Teams Patent Paralegal Relationship Specialty Start Date End Date Winston Villatoro OD [facility] [address] [facility] [address] [place] [address] PCP - Ophthalmology Ophthalmology 02/11/13 Denise Woodson APRN CYCLE ANALYST [address] [place] [address] PCP - General Family Practice 09/21/20 Denise Woosdon APRN CYCLE ANALYST [address] [place] [address] Assigned PCP 07/17/20 Usha Simon APRN CYCLE ANALYST 909 [facility] [place], [place] [address] Nurse Practitioner Neurological Surgery 01/24/24 Dangelo Salinas MD [address] [place] [address] Neurology 01/27/24 Anastasia Stearns, RN Lead Crankshaft Straightener 02/06/24 Germaine Lopez, W Community Health Worker Primary Care - CC 02/18/24 Lisa Zambrano MD [address] [facility] [address] [place], [place] [address] Assigned Heart and Vascular Provider 05/08/24 07/07/24 Raul Hooys MD [address] [place] [address] 332865 Assigned Neuroscience Provider 05/08/24 07/07/24 Joya Lira [facility] [address] [place] [address] Pharmacist Pharmacist 05/25/24 Joya Lira [facility] [address] [place], [place] [phone] Assigned MTM Pharmacist 06/08/24 Fabi Coates MD [address] [place] [address] 75 [place], [place] [address] Genetics, Clinical 06/18/24 Robin Zepeda MD [address] [place] [address] 867085 Assigned Neuroscience Provider 07/08/24 08/07/24 Danna Cardenas PA-C 6405 [place], [place] 791385 Assigned Heart and Vascular Provider 07/08/24 Felicita Desai, RN Lead Crankshaft Straightener 07/14/24 07/28/24 Arthur aSlas [facility] [address] [address] Assigned Behavioral Health Provider 08/08/24 Randy Maradiaga DO [address] [place] [address] Assigned Neuroscience Provider 08/08/24 documented as of this encounter
--- OUTSIDE RECORDS SUMMARY | 2024-09-20 18:08 | XMS_ITS | Encounter Summary ---
Author Organization [facility] Address [address] [place] [address] Care Team Providers Care Highway Traffic Control Technician Name Role Phone Winston Villatoro OD Unavailable Denise Woodson APRN HOUSEKEEPER HEAD Unavailable [phone] Denise Woodson APRN HOUSEKEEPER HEAD Primary Care Provider Usha Simon APRN HOUSEKEEPER HEAD Unavailable [phone] Dangelo Salinas MD Unavailable Anastasia Stearns RN Unavailable [phone] Germaine Lopez [facility] Unavailable Joya Lira [facility] Unavailable Joya Lira [facility] Unavailable Fabi Coates MD Unavailable [phone] Robin Catalan MD Unavailable Danna Cardenas PA-C Unavailable Felicita Desai RN Unavailable Unavailab Arthur RiosSW Unavailable [phone] Randy Maradiaga DO Unavailable + Encounter Details Date Type Department Care Team (Late st Contact Info) Description 07/16/2024 [facility] [address] [place] [address] Arthur Salas, [facility] [address] [place] [address] Social History Tobacco Use Types Packs/Day Years [...] How often do you attend taoist or synagogue serv ices? 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 Not on file Not on file Not on file Not on file Not on file Not on file documented as of this encounter Plan of Treatment Upcoming Encounters Date Type Department Care Team (Late st Contact Info) Description 09/25/2024 11:00 AM PRODUCE ASSOCIATE Office Visit [facility] [address] [place] [phone] Denise Woodson, [place] HOUSEKEEPER HEAD [address] [place], [place] [phone] 09/29/2024 9:00 AM PRODUCE ASSOCIATE Virtual Visit [facility] Neurology [address] 3rd [place] [phone] Randy Maradiaga, [address] [address] 10/09/2024 1:20 PM PRODUCE ASSOCIATE Office Visit [facility] Heart [facility] [address] [facility] [address] [place] [phone] Danna Cardenas PA-C 6405 [place], [place] [address] 10/15/2024 11:00 AM PRODUCE ASSOCIATE Office Visit [facility] [address] [place] [phone] Denise Woodson, [place] HOUSEKEEPER HEAD [address] [place] [address] 10/30/2024 4:00 PM PRODUCE ASSOCIATE Virtual Visit [facility] Vascular Clinic [place] [address] [place] [phone] Lisa Zambrano MD [address] [place] [address]395 12/29/2024 12:45 PM CDT Office Visit [facility] [address] [facility] [address] [phone] Fabi Coates MD [address] [place] [address] 75 [place] [address] 12/29/2024 1:45 PM CDT Office Visit [facility] 24[address] [facility] Explorer [facility] [address],[place] [phone] Fabi Coates MD [address] [facility] [address] [place] [address] 06/01/2025 11:15 AM CDT Appointment [facility] Imaging [address] [place] [phone] Robin Zepeda MD [address] [place] [address] 06/04/2025 11:00 AM CDT Office Visit [facility] Neurosurgery [facility] [address] [place] [address] 3rd [place] [phone] Robin Zepeda MD [address] [place] [address] Usha Simon APRN [facility] [address] documented as of this encounter Goals Goal Patient Goal Type Associated Problems Recent Progress Patient-Stated? Author I would like additional resources and support to manage my health and prevent future avoidable ED visits/hospital admissions Care Plan Increased risk of re-admission 40%( 4 3:02 PM PRODUCE ASSOCIATE) Anastasia Talamantes, RN Note: Barriers: diagnosis of multiple, chronic, complex medical conditions, provider availability - wait time to complete appointments, etc. Strengths: motivated, engaged in care coordination Patient expressed understanding of goal: yes Action steps to achieve this goal: 1. I will follow up with my providers as scheduled/recommended - Pulmonology: TBD - Mental Health weekly - PT, OT and [facility] TRAFFIC [facility], continuing through [facility] [place]: - PCP: 09/18/2024 & 10/15/2024. - Vascular [...] clinic with 24/7 after hours services available. Milk And Cream Grader will remain available as needed. documented as of this encounter Visit Diagnoses Not on filedocumented in this encounter Additional Health Concerns Active Problems Noted Date Diagnosed Date Increased risk of re-admission 02/18/2024 Infection Onset Date Last Indicated Resolved Time Rule Out COVID-19 09/13/2024 09/13/2024 09/13/2024 12:31 PM PRODUCE ASSOCIATE Assessment Noted Time PHQ-9 Depression Total Score: 14 024 11:46 AM CDT documented as of this encounter Care Teams Highway Traffic Control Technician Relationship Specialty Start Date End Date Winston Villatoro OD [facility] [address] [facility] [address] [place] [address] PCP - Ophthalmology Ophthalmology 02/11/13 Denise Woodson APRN HOUSEKEEPER HEAD [address] [address] PCP - General Family Practice 09/21/20 Denise Woodson APRN HOUSEKEEPER HEAD [address] [address] [address] Assigned PCP 07/17/20 Usha Simon APRN HOUSEKEEPER HEAD [address] [place] [address] [place] [address] Nurse Practitioner Neurological Surgery 01/24/24 Dangelo Salinas MD [address] [place] [address] Neurology 01/27/24 Anastasia Stearns, RN Lead Milk And Cream Grader 02/06/24 Germaine Lopez, W Community Health Worker Primary Care - CC 02/18/24 Joya Lira [facility] [address] [place] [address] Pharmacist Pharmacist 05/25/24 Joya Lira [facility] [address] [place] [address] Assigned MTM Pharmacist 06/08/24 Fabi Coaets MD [address] [place] [address] 75 [place] [address] Genetics, Clinical 06/18/24 Robin Zepeda MD [address] [address] Assigned Neuroscience Provider 07/08/24 08/07/24 Danna aCrdenas PA-C 6405 [place] [address] Assigned Heart and Vascular Provider 07/08/24 Felicita Desai, RN Lead Milk And Cream Grader 07/14/24 07/28/24 Arthur Salas, [facility] [address] [address] Assigned Behavioral Health Provider 08/08/24 Randy Maradiaga DO [address] [place] [address] Assigned Neuroscience Provider 08/08/24 documented as of this encounter
--- OUTSIDE RECORDS SUMMARY | 2024-09-20 18:08 | XMS_ITS | Encounter Summary ---
Author Organization [place] Address [address] [place] [address] Care Team Providers Care Wirer Name Role Phone Winston Villatoro OD Unavailable Denise Woodson APRN AUTOCAD TECHNICIAN Unavailable [phone] Denise Woodson APRN AUTOCAD TECHNICIAN Primary Care Provider Usha Simon APRN AUTOCAD TECHNICIAN Unavailable [phone] Dangelo Salinas MD Unavailable Anastasia Stearns RN Unavailable Germaine Lopez [facility] Unavailable [phone] Joya Lira [facility] Unavailable [phone] Joya Lira [facility] Unavailable [phone] Fabi Coates MD Unavailable [phone] Robin Catalan MD Unavailable Danna Cardenas PA-C Unavailable [phone] Arthur Salas Unavailable [phone] Randy Maradiaga DO Unavailable + Encounter Details Date Type Department Care Team (Late st Contact Info) Description 08/01/2024 [facility] Neurology [address] [place] [address] Laronfortunato Randy Yobany, DO [address] [place] [address] Social History Tobacco Use Types [...] How often do you attend worship or voodoo serv ices? 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 Not on file Not on file Not on file Not on file Not on file documented as of this encounter Plan of Treatment Upcoming Encounters Date Type Department Care Team (Late st Contact Info) Description 09/25/2024 11:00 AM RECRUITMENT AND OUTREACH ASSISTANT Office Visit [address] [address] Denise Woodson, BARRERA AUTOCAD TECHNICIAN [address] [place] [address] 09/29/2024 9:00 AM RECRUITMENT AND OUTREACH ASSISTANT Virtual Visit [facility] [address] [facility] 3rd [place] [phone] Randy Maradiaga, [address] [place] [address] 10/09/2024 1:20 PM RECRUITMENT AND OUTREACH ASSISTANT Office Visit [facility] [address] [facility] [address] [place] [phone] Danna Cardenas PA-C 6405 [place], [place] [address] 10/15/2024 11:00 AM RECRUITMENT AND OUTREACH ASSISTANT [facility] [address] [place] [phone] Denise Woodson, BARRERA AUTOCAD TECHNICIAN [address] [place] [address] 10/30/2024 4:00 PM RECRUITMENT AND OUTREACH ASSISTANT Virtual Visit [facility] [place] [address] [place] [phone] Lisa Zambrano MD [address] [place] [address] 12/29/2024 12:45 PM CDT Office Visit [facility] [address] [facility] 12th Flr,[place] [phone] Fabi Coates MD [address] [facility] 75 [place], [place] [address] 12/29/2024 1:45 PM CDT Office Visit [facility] 2450 [facility] [address] Fl[address],[place] [phone] Fabi Coates MD [address] [facility] 75 [place] [address] 06/01/2025 11:15 AM CDT Appointment [facility] Imaging [address] [place] [phone] Robin Zepeda MD [address] [place] [address] 06/04/2025 11:00 AM CDT Office Visit [facility] [address] 3rd [place] [phone] Robin Zepeda MD [address] [place] [address] Usha Simon APRN [address] [address] documented as of this encounter Goals Goal Patient Goal Type Associated Problems Recent Progress Patient-Stated? Author I would like additional resources and support to manage my health and prevent future avoidable ED visits/hospital admissions Care Plan Increased risk of re-admission 40%( 4 3:02 PM RECRUITMENT AND OUTREACH ASSISTANT) No Anastasia Stearns, RN Note: Barriers: diagnosis of multiple, chronic, complex medical conditions, provider availability - wait time to complete appointments, etc. Strengths: motivated, engaged in care coordination Patient expressed understanding of goal: yes Action steps to achieve this goal: 1. I will follow up with my providers as scheduled/recommended - Pulmonology: TBD - Mental Health weekly - PT, OT and STUDENT SUPPORT SERVICES DIRECTOR, continuing through [facility]: - PCP: 09/18/2024 & 10/15/2024. - Vascular [...] clinic with 24/7 after hours services available. Sawmill Tally Clerk will remain available as needed. documented as of this encounter Visit Diagnoses Not on filedocumented in this encounter Additional Health Concerns Active Problems Noted Date Diagnosed Date Increased risk of re-admission 02/18/2024 Infection Onset Date Last Indicated Resolved Time Rule Out COVID-19 09/13/2024 09/13/2024 09/13/2024 12:31 PM RECRUITMENT AND OUTREACH ASSISTANT Assessment Noted Time PHQ-9 Depression Total Score: 14 024 11:46 AM CDT documented as of this encounter Care Teams Wirer Relationship Specialty Start Date End Date Winston Villatoro OD [facility] [place] [address] [place] [address] PCP - Ophthalmology Ophthalmology 02/11/13 Denise Woodson APRN AUTOCAD TECHNICIAN [address] [address] [address] PCP - General Family Practice 09/21/20 Denise Woodson APRN AUTOCAD TECHNICIAN [address] [address] [id number] Assigned PCP 07/17/20 Usha Simon APRN AUTOCAD TECHNICIAN [address] [facility] [place] [address] Nurse Practitioner Neurological Surgery 01/24/24 Dangelo Salinas MD [address] [facility] [address] [place] [address] Neurology 01/27/24 Anastasia Steanrs, RN Lead Sawmill Tally Clerk 02/06/24 Germaine Lopez, W Community Health Worker Primary Care - CC 02/18/24 Joya Lira RPH [address] [address] Pharmacist Pharmacist 05/25/24 Joya Lira Joleen [address] [place] [address] Assigned MTM Pharmacist 06/08/24 Fabi Coates MD [address] [place] [address] 75 [place] [address] Genetics, Clinical 06/18/24 Robin Zepeda MD [address] [place] [place] [place] [address] Assigned Neuroscience Provider 07/08/24 08/07/24 Danna Cardenas PA-C [address] [place] [address] Assigned Heart and Vascular Provider 07/08/24 Arthur Salas [facility] [address] [place] [address] Assigned Behavioral Health Provider 08/08/24 Randy Maradiaga DO [address] [place] [address] Assigned Neuroscience Provider 08/08/24 documented as of this encounter
--- OUTSIDE RECORDS SUMMARY | 2024-09-20 18:08 | XMS_ITS | Encounter Summary ---
Author Organization [place] Address [address] [place] [address] Care Team Providers Care Production Gear Cutter Name Role Phone Winston Villatoro OD Unavailable [phone] Denise Woodson APRN TINTER PHOTOGRAPH Unavailable [phone] Denise Woodson APRN TINTER PHOTOGRAPH Primary Care Provider Usha Simon APRN TINTER PHOTOGRAPH Unavailable [phone] Dangelo Salinas MD Unavailable Anastasia Stearns RN Unavailable [phone] Germaine Lopez [facility] Unavailable Joya Lira [facility] Unavailable Joya Lira [facility] Unavailable Fabi Coates MD Unavailable [phone] Robin Catalan MD Unavailable [phone] Danna Cardenas PA-C Unavailable [phone] Encounter Details Date Type Department Care Team (Late st Contact Info) Description 08/06/2024 [facility] [address] [place] [address] Denise Woodson APRN TINTER PHOTOGRAPH [address] [place] [address] Social History Tobacco Use Types [...] How often do you attend tenriism or jewish serv ices? 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 Faxed and sent to patient. Qing Cardona Lead Antiquer [facility] Phoebe Gross PEELER * Telephone Encounter - Qing Copeland - 08/06/2024 1:56 PM CST Routing to provider as FYI. Form in provider's In Basket. Qing Copeland [facility] documented in this encounter Plan of Treatment Upcoming Encounters Date Type Department Care Team (Late st Contact Info) Description 09/25/2024 11:00 AM LOG PEELER Office Visit [facility] [address] [place] [phone] Denise Woodson, BARRERA TINTER PHOTOGRAPH [address] [place], [place] [phone] 09/29/2024 9:00 AM LOG PEELER Virtual Visit [facility] Neurology [address] [phone] Randy Maradiaga, [address] [address] 10/09/2024 1:20 PM LOG PEELER Office Visit [facility] Heart [facility] 6[address] [facility] [address] [place] [phone] Danna Cardenas PA-C 6406 [place] [address] 10/15/2024 11:00 AM LOG PEELER Office Visit [facility] [address] [place] [phone] Denise Woodson, BARRERA TINTER PHOTOGRAPH [address] [place], [place] [address] 10/30/2024 4:00 PM LOG PEELER Virtual Visit [facility] Vascular [facility] [address] [facility] [address] [place] [phone] Lisa Zambrano MD [address] [place] [address] 12/29/2024 12:45 PM CDT Office Visit [facility] [address] [place], [place] [address] Explorer [address] [phone] Fabi Coates MD [address] [address] 12/29/2024 1:45 PM CDT Office Visit [facility] Pediatric Specialty [address] [phone] Fabi Coates MD [address] [address] 06/01/2025 11:[address] [facility] Imaging [address] [facility] [address] [place] [phone] Robin Zepeda MD [address] [place] [address] 06/04/2025 11:00 AM CDT Office Visit [facility] Neurosurgery [address] 3rd [place] [phone] Robin Zepeda MD [address] [place] [address] Usha Simon APRN [address] [address] documented as of this encounter Goals Goal Patient Goal Type Associated Problems Recent Progress Patient-Stated? Author I would like additional resources and support to manage my health and prevent future avoidable ED visits/hospital admissions Care Plan Increased risk of re-admission 40%( 3:02 PM LOG PEELER) Anastasia Talamantes, RN Note: Barriers: diagnosis of multiple, chronic, complex medical conditions, provider availability - wait time to complete appointments, etc. Strengths: motivated, engaged in care coordination Patient expressed understanding of goal: yes Action steps to achieve this goal: 1. I will follow up with my providers as scheduled/recommended - Pulmonology: TBD - Mental Health weekly - PT, OT and SUPPLY CHAIN LOGISTICS MANAGER, continuing through [facility] [place]: - PCP: 09/18/2024 & 10/15/2024. - Vascular [...] clinic with 24/7 after hours services available. Oven Dauber will remain available as needed. documented as of this encounter Visit Diagnoses Not on filedocumented in this encounter Additional Health Concerns Active Problems Noted Date Diagnosed Date Increased risk of re-admission 02/18/2024 Assessment Noted Time PHQ-9 Depression Total Score: 5 08/03/20 24 12:49 PM LOG PEELER documented as of this encounter Care Teams Production Gear Cutter Relationship Specialty Start Date End Date Winston Villatoro OD [facility] [address] [place] [id number] PCP - Ophthalmology Ophthalmology 02/11/13 Denise Woodson APRN TINTER PHOTOGRAPH [address] [address] [address] PCP - General Family Practice 09/21/20 Denise Woodson APRN TINTER PHOTOGRAPH [address] [facility] [place] [address] Assigned PCP 07/17/20 Usha Simon APRN TINTER PHOTOGRAPH [address] [address], [place] [address] Nurse Practitioner Neurological Surgery 01/24/24 Dangelo Salinas MD [address] [place], [place] [id number] Neurology 01/27/24 Anastasia Stearns, RN Lead Oven Dauber 02/06/24 Germaine Lopez, W Community Health Worker Primary Care - CC 02/18/24 Joya Lira [facility] [address] [place], [place] [phone] Pharmacist Pharmacist 05/25/24 Joya Lira [facility] [address] [place] [address] Assigned MTM Pharmacist 06/08/24 Fabi Coates MD [address] [place] [address] 75 [place], [place] [address] Genetics, Clinical 06/18/24 Robin Zepeda MD [address] [address], [place] [address] Assigned Neuroscience Provider 07/08/24 08/07/24 Danna Cardenas PA-C [address] [place] [address] Assigned Heart and Vascular Provider 07/08/24 documented as of this encounter
--- OUTSIDE RECORDS SUMMARY | 2024-09-20 18:08 | XMS_ITS | Encounter Summary ---
Author Organization [facility] Address [address] [place] [address] Care Team Providers Care Manganese Heater Name Role Phone Winston Villatoro OD Unavailable Denise Woodson APRN AUTOMOBILE RACER Unavailable [phone] Denise Woodson APRN AUTOMOBILE RACER Primary Care Provider Usha Simon APRN AUTOMOBILE RACER Unavailable [phone] Dangelo Salinas MD Unavailable Anastasia Stearns RN Unavailable Germaine Lopez [facility] Unavailable [phone] Joya Lira [facility] Unavailable Joya Lira [facility] Unavailable Fabi Coates MD Unavailable [phone] Danna CardenasC Unavailable [phone] Arthur Salas MELANGEUR OPERATOR Unavailable Randy Maradiaga DO Unavailable + Reason for Visit * Mental Health Outpatient (Routine: Next available opening) - Authorized Specialty Diagnoses / Procedures Referred By Contac t Referred To Contact Neuropsychology Diagnoses Dural arteriovenous fistula Cerebrovascular accident (CVA), unspecified mechanism (H) Robin Zepeda MD [address] [place], [place] [address] [address] Phone: tel: fax: Referral ID Status Reason Start Date Expiration Date V isits Requested Visits Authorized [id number] Authorized 06/02/2024 06/02/2025 3 3 Encounter Details Date Type Department Care Team (Latest Contact Info) Description 08/10/2024 12:30 PM FREELANCE PHOTOGRAPHER Virtual Visit [facility] Neuropsychology [address] 3rd [place] [phone] Robin Zepeda MD [address] [place], [place] [address], [place] [address] Other specified mental disorders due to known [...] How often do you attend orthodoxy or temple serv ices? 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 If the video visit is dropped, the invitation should be resent by: Send to [employer] Will anyone else be joining your video visit? NO Video Start Time: 12:20 pm Video-Visit Details Type of service: Video Visit Video End Time: 1:02 pm Originating Location (pt. 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 The patient was referred for a neuropsychological evaluation by Robin Zepeda MD, to assess her cognitive and emotional functioning secondary to cognitive difficulties. She was unaccompanied during the interview. This interview was completed via [employer]. RELEVANT BACKGROUND INFORMATION AND SUPPORTING DOCUMENTATION Information [...] reported Executive Functioning: Noted problem-solving as a previous personal strength; now has difficulty remembering and following directions while cooking Functional Status ADLs: Independent hand stonecutter/Cooking: Loads service rig operator and folds laundry independently; reports minimal engagement in family law attorney due to fatigue; has not resumed cooking due to difficulty remembering and following recipes Finances: Manages independently; utilizes autopay features; reported not checking on finances as frequently as she used to but denied ongoing concerns with vice president financial Medications: Manages independently with no noted concerns [...] not walk until after 3 years old [place] Language: Persian Education: Described herself as a gifted student [...] formally diagnosed 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 w/subsequnt right hemiparesis). - GTC (epilepsy notes 05/05/2024. Single GTC following infarction. Other non- convulsive and non-stereotyped events 01/2024 of unclear nature. Recommended to switch to Oxcarbazepine (150 mg BID) while staying on a low dose keppra 375 mg every day. Follow up was recommended in 2 months)??? Interval history: - Presented to [facility] ED 07/12/ with right hand/foot paresthesias, nausea, dysphagia, fatigue, unsteadiness. Had whole body shaking episode in MRI, so exam stopped early. Keppra level was 13.3 07/12/2024. There is an excellent note written by neurology vascular provider 07/13/2024 (reviewed today).?? Patient Active Problem List Diagnosis Generalized anxiety [...] stroke Reported residual hemiparesis in right arm and occasional numbness and tingling in in her lower extremities Denied tremor, incontinence, [...] psyllium, senna-docusate, and t razodone. BEHAVIORAL OBSERVATIONS Ms. Zamora was polite and cooperative with the interview. Her speech was normal. Her comprehension was normal. Her thought processes were linear and coherent. Her mood was neutral with congruent affect. IMPRESSIONS A neuropsychological interview was completed in this visit. She describes some ongoing difficultieswith memory, attention/concentration, processing speed, and executive functioning since her stroke.She is scheduled to return for comprehensive in person neuropsychological testing on 08/17/2024, at12:30 PM. Full report to follow. RECOMMENDATIONS 1. Comprehensive in person neuropsychological testing will be completed on 08/17/2024 at 12:30 PM. Wanda Rai, Ph.D. Neuropsychology Fellow Tulio Ogden, Ph.D., L.P., ABPP Board Certified in Clinical Neuropsychology Construction Equipment Technician / Licensed Psychologist [id number] Time spent: One unit psychiatric diagnostic interview including interview and clinical assessment by licensed and board-certified neuropsychologist (CPT [id number]). Diagnoses: I67.1, I63.9, F06.8. LANCE PHOTOGRAPHER documented in this encounter Plan of Treatment Upcoming Encounters Date Type Department Care Team (Late st Contact Info) Description 09/25/2024 11:00 AM FREELANCE PHOTOGRAPHER Office Visit [facility] [address] [place] [address] Denise Woodson APRN [facility] [address] [place] [address] 09/29/2024 9:00 AM FREELANCE PHOTOGRAPHER Virtual Visit [facility] Neurology Clinic [address]rd [facility] [place] [phone] Randy Maradiaga, [address] [place], [place] [phone] 10/09/2024 1:20 PM FREELANCE PHOTOGRAPHER Office Visit [facility] Heart [facility] [address] [facility] [address] [place] [phone] Danna Cardenas PA-C [address] [place], [place] [address] 10/15/2024 11:00 AM FREELANCE PHOTOGRAPHER Office Visit [facility] [address] [place] [phone] Denise Woodson, BARRERA AUTOMOBILE RACER [address] [place], [place] [phone] 10/30/2024 4:00 PM FREELANCE PHOTOGRAPHER Virtual Visit [facility] [address] [place] [phone] Lisa Zambrano MD [address] [place] [address] 12/29/2024 12:45 PM CDT Office Visit [facility] [address] [place] [address] Ave [address] [phone] Fabi Coates MD [address] [place] [id number] 12/29/2024 1:45 PM CDT Office Visit [facility] [address] [place] [address] Ave [facility] [address] [phone] Fabi Coates MD [address] [place] [address] 75 [place] [address] 06/01/2025 11:[address] [facility] [address] [place] [phone] Robin Zepeda MD [address] [place] [address] 06/04/2025 11:00 AM CDT Office Visit [facility] Neurosurgery Clinic [address] 3rd [place] [phone] Robin Zepeda MD [address] [place] [address] Usha Simon APRN AUTOMOBILE RACER [address] [place] [id number] documented as of this encounter Goals Goal Patient Goal Type Associated Problems Recent Progress Patient-Stated? Author I would like additional resources and support to manage my health and prevent future avoidable ED visits/hospital admissions Care Plan Increased risk of re-admission 40%( 4 3:02 PM FREELANCE PHOTOGRAPHER) Anastasia Talamantes, RN Note: Barriers: diagnosis of multiple, chronic, complex medical conditions, provider availability - wait time to complete appointments, etc. Strengths: motivated, engaged in care coordination Patient expressed understanding of goal: yes Action steps to achieve this goal: 1. I will follow up with my providers as scheduled/recommended - Pulmonology: TBD - Mental Health weekly - PT, OT and NUCLEAR EQUIPMENT DESIGN ENGINEER, continuing through [facility]: - PCP: 09/18/2024 & 10/15/2024. - Vascular Dr. Zambrano 10/30/24 - EEG: # - 12/27/24 - Neurology: 09/29/24 - Cardiology: 10/09/24 - [...] clinic with 24/ after hours services available. Heat Regulator will remain available as needed. documented as of this encounter Visit Diagnoses Diagnosis Other specified mental disorders due to known physiological condition- Primary Dural arteriovenous fistula Cerebral aneurysm, nonruptured Cerebrovascular accident (CVA), unspecified mechanism (H) documented in this encounter Additional Health Concerns Active Problems Noted Date Diagnosed Date Increased risk of re-admission 02/18/2024 Assessment Noted Time PHQ-9 Depression Total Score: 5 08/03/20 24 12:49 PM FREELANCE PHOTOGRAPHER documented as of this encounter Care Teams Manganese Heater Relationship Specialty Start Date End Date Winston Villatoro OD [facility] [address] [facility] [address] [place] [address] PCP - Ophthalmology Ophthalmology 02/11/13 Denise Woodson APRN AUTOMOBILE RACER [address] [place] [address] PCP - General Family Practice 09/21/20 Denise Woodson APRN AUTOMOBILE RACER [address] [place] [address] Assigned PCP 07/17/20 Usha Simon APRN AUTOMOBILE RACER 9 [facility] [place] [address] Nurse Practitioner Neurological Surgery 01/24/24 Dangelo Salinas MD [address] [facility] [address] [place] [address] Neurology 01/27/24 Anastasia Stearns, RN Lead Heat Regulator 02/06/24 Germaine Lopez, W Community Health Worker Primary Care - CC 02/18/24 Joya Lira RPH [address] [place] [address] Pharmacist Pharmacist 05/25/24 Joya Lira RPH [address] [place] [address] Assigned MTM Pharmacist 06/08/24 Fabi Coates MD [address] [place] [address] 75 [place] [address] Genetics, Clinical 06/18/24 Danna Cardenas PA-C [address] [place] [address] Assigned Heart and Vascular Provider 07/08/24 Arthur Salas LICSW [address] [place] [address] [id number] Assigned Behavioral Health Provider 08/08/24 Randy Maradiaga DO [address] [place], [place] [address] Assigned Neuroscience Provider 08/08/24 documented as of this encounter
--- OUTSIDE RECORDS SUMMARY | 2024-09-20 18:08 | XMS_ITS | Encounter Summary ---
Author Organization [facility] Address [address] [place] [address] Care Team Providers Care Assistant Housekeeping Manager Name Role Phone Winston Villatoro OD Unavailable [phone] Denise Woodson APRN AMMUNITION COMPONENTS INSPECTOR Unavailable [phone] Denise Woodson APRN AMMUNITION COMPONENTS INSPECTOR Primary Care Provider Usha Simon APRN AMMUNITION COMPONENTS INSPECTOR Unavailable [phone] Dangelo Salinas MD Unavailable Anastasia Stearns RN Unavailable Germaine Lopez CH Unavailable [phone] Lisa Zambrano MD Unavailable + [phone] Raul Hoyos MD Unavailable Joya Lira [facility] Unavailable [phone] Joya Lira [facility] Unavailable [phone] Fabi Coates MD Unavailable [phone] Robin Catalan MD Unavailable [phone] Danna Cardenas PA-C Unavailable [phone] Felicita Desai RN Unavailable Unavailab Arthur Rios Unavailable [phone] Randy Maradiaga DO Unavailable + Encounter Details Date Type Department Care Team (Late st Contact Info) Description 07/07/2024 MyC Medical Advice [facility] Neurology Clinic [address] [place] [address] Field Liliane Social History Tobacco Use Types Packs/Day Years [...] Answer Date Recorded PHQ-2 Score 2 07/02/2024 [facility] - Occupational [...] building, in an overnight fpc, or couch-surfing.) No 05/19/2024 Are you worried [...] on file Legal Sex 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 ANIMAL LABORATORY TECHNICIAN Gender Identity Not on file Sexual Orientation Not on file 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 Not on file Not on file Not on file Not on file Not on file Not on file documented as of this encounter Plan of Treatment Upcoming Encounters Date Type Department Care Team (Late st Contact Info) Description 09/25/2024 11:00 AM ANIMAL LABORATORY TECHNICIAN Office Visit [facility] [address] [place] [phone] Denise Woodson APRN AMMUNITION COMPONENTS INSPECTOR [address] [place], [place] [phone] 09/29/2024 9:00 AM ANIMAL LABORATORY TECHNICIAN Virtual Visit [facility] Neurology [address] 3rd [place] [phone] Randy Maradiaga, [address] [address] 10/09/2024 1:20 PM ANIMAL LABORATORY TECHNICIAN Office Visit [facility] Heart [facility] [address] [facility] [address] [place] [phone] Danna Cardenas PA-C [address] [place], [place] [address] 10/15/2024 11:00 AM ANIMAL LABORATORY TECHNICIAN [facility] [address] [place] [phone] Denise Woodson APRN AMMUNITION COMPONENTS INSPECTOR [address] [facility] [place] [address] 10/30/2024 4:00 PM ANIMAL LABORATORY TECHNICIAN Virtual Visit [facility] Vascular [facility] [address] [place] [phone] Lisa Zambrano MD [address] [place] [phone] 12/29/2024 12:45 PM CDT Office Visit [facility] [address] [facility] [address],[place] [phone] Fabi Coates MD [address] [facility] 75 [place] [address] 12/29/2024 1:45 PM CDT Office Visit [facility] 2450 [facility] Explorer [facility] 12th [address]r,[place] [phone] Fabi Coates MD [address] [facility] [address] [place] [address] 06/01/2025 11:15 AM CDT Appointment [facility] Imaging [address] [place] [phone] Robin Zepeda MD [address] [place] [address] 06/04/2025 11:00 AM CDT Office Visit [facility] Neurosurgery Clinic [address] 3rd [place] [phone] Robin Zepeda MD [address] [place] [address] Usha Simon APRN [address] [address] documented as of this encounter Goals Goal Patient Goal Type Associated Problems Recent Progress Patient-Stated? Author I would like additional resources and support to manage my health and prevent future avoidable ED visits/hospital admissions Care Plan Increased risk of re-admission 40%( 4 3:02 PM ANIMAL LABORATORY TECHNICIAN) Anastasia Talamantes, RN Note: Barriers: diagnosis of multiple, chronic, complex medical conditions, provider availability - wait time to complete appointments, etc. Strengths: motivated, engaged in care coordination Patient expressed understanding of goal: yes Action steps to achieve this goal: 1. I will follow up with my providers as scheduled/recommended - Pulmonology: TBD - Mental Health weekly - PT, OT and BUDGET REPORT CLERK, continuing through [facility]: - PCP: 09/18/2024 & 10/15/2024. - Vascular [...] clinic with 24/7 after hours services available. Tubing Machine Tender will remain available as needed. documented as of this encounter Visit Diagnoses Not on filedocumented in this encounter Additional Health Concerns Active Problems Noted Date Diagnosed Date Increased risk of re-admission 02/18/2024 Infection Onset Date Last Indicated Resolved Time Rule Out COVID-19 09/13/2024 09/13/2024 09/13/2024 12:31 PM ANIMAL LABORATORY TECHNICIAN Assessment Noted Time PHQ-9 Depression Total Score: 5 03/17/20 24 9:45 AM CDT documented as of this encounter Care Teams Assistant Housekeeping Manager Relationship Specialty Start Date End Date Winston Villatoro OD [facility] [address] [facility] [address] [place] [address] PCP - Ophthalmology Ophthalmology 02/11/13 Denise Woodson APRN AMMUNITION COMPONENTS INSPECTOR [address] [address] [address] PCP - General Family Practice 09/21/20 Denise Woodson APRN AMMUNITION COMPONENTS INSPECTOR [address] [address] [address] Assigned PCP 07/17/20 Usha Simon APRN AMMUNITION COMPONENTS INSPECTOR [address] [facility] [address] Nurse Practitioner Neurological Surgery 01/24/24 Dangelo Salinas MD [address] [place] [address] Neurology 01/27/24 Anastasia Stearns, RN Lead Tubing Machine Tender 02/06/24 Germaine Lopez, W Community Health Worker Primary Care - CC 02/18/24 Lisa Zambrano MD [address] [facility] [address] [place] [address] Assigned Heart and Vascular Provider 05/08/24 07/07/24 Raul Hoyos MD [address] [address] Assigned Neuroscience Provider 05/08/24 07/07/24 Joya Lira RPH [address] [place] [address] Pharmacist Pharmacist 05/25/24 Joya Lira Joleen [address] [place] [address] Assigned MTM Pharmacist 06/08/24 Fabi Coates MD [address] [facility] [address] [place] [address] Genetics, Clinical 06/18/24 Robin Zepeda MD 909 [facility] ES[address]TG [place] [address] Assigned Neuroscience Provider 07/08/24 08/07/24 Danna Cardenas PA-C [address] [place] [address] Assigned Heart and Vascular Provider 07/08/24 Felicita Desai, RN Lead Tubing Machine Tender 07/14/24 07/28/24 Arthur Salas [facility] [address] [place] [address] Assigned Behavioral Health Provider 08/08/24 Randy Maradiaga DO [address] [place] [address] Assigned Neuroscience Provider 08/08/24 documented as of this encounter
--- OUTSIDE RECORDS SUMMARY | 2024-09-20 18:08 | XMS_ITS | Encounter Summary ---
Author Organization [place] Address [address] [place] [address] Care Team Providers Care Disposal Operator Name Role Phone Winston Villatoro OD Unavailable [phone] Denise Woodson APRN MICROWAVE SUPERVISOR Unavailable [phone] Denise Woodson APRN MICROWAVE SUPERVISOR Primary Care Provider Usha Simon APRN [facility] Unavailable Dangelo Salinas MD Unavailable Anastasia Stearns RN Unavailable Germaine Lopez [facility] Unavailable [phone] Joya Lira [facility] Unavailable Joya Lira [facility] Unavailable Fabi Coates MD Unavailable [phone] Danna Cardenas PA-C Unavailable [phone] Sinyigaledy, Speciose LAB ANIMAL TECHNICIAN Unavailable [phone] Randy Maradiaga DO Unavailable + Encounter Details Date Type Department Care Team (Late st Contact Info) Description 08/11/2024 [facility] Denn[facility] [address] [place] [phone] Sinyigaya, Speciose, LAB ANIMAL TECHNICIAN [address] [place] [address] Social History Tobacco Use Types Packs/Day Years [...] How often do you attend nondenominational or taoist serv ices? 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 Not on file Not on file Not on file Not on file Not on file Not on file documented as of this encounter Plan of Treatment Upcoming Encounters Date Type Department Care Team (Late st Contact Info) Description 09/25/2024 11:00 AM HAND FORMER HELPER Office Visit [facility] [address] [place] [address] Denise Woodson APRN [facility] [address] [place] [address] 09/29/2024 9:00 AM HAND FORMER HELPER Virtual Visit [facility] Neurology [facility] [address] [facility] [address] 3rd [place] [address] Randy Maradiaga, [address] [place] [address] 10/09/2024 1:20 PM HAND FORMER HELPER Office Visit [facility] Heart [facility] 6[address] [facility] [address] [place] [phone] Danna Cardenas PA-C 6405 [place] [address] 10/15/2024 11:00 AM HAND FORMER HELPER Office Visit [facility] [address] [place] [phone] hCintan DeniseBARRERA diaz MICROWAVE SUPERVISOR [address] [place] [address] 10/30/2024 4:00 PM HAND FORMER HELPER Virtual Visit [facility] Vascular Clinic [place] [address] [place] [phone] Lisa Zambrano MD [address] [place] [address] 12/29/2024 12:45 PM CDT Office Visit [facility] [address] [facility] [address],[place] [phone] Fabi Coates MD 420 [facility] 75 [place], [place] [address] 12/29/2024 1:45 PM CDT Office Visit [facility] [address] [facility] [address],[place] [phone] Fabi Coates MD [address] [place] [facility] [address] [place] [address] 06/01/2025 11:15 AM CDT Appointment [facility] Imaging [address] [place] [address] [place] [phone] Robin Zepeda MD [address] [place] [address] 06/04/2025 11:00 AM CDT Office Visit [facility] Neurosurgery Clinic [address] 3rd [place] [phone] Robin Zepeda MD [address] [place] [address] Usha Simon APRN [address] [address] documented as of this encounter Goals Goal Patient Goal Type Associated Problems Recent Progress Patient-Stated? Author I would like additional resources and support to manage my health and prevent future avoidable ED visits/hospital admissions Care Plan Increased risk of re-admission 40%( 4 3:02 PM HAND FORMER HELPER) No Anastasia Stearns, RN Note: Barriers: diagnosis of multiple, chronic, complex medical conditions, provider availability - wait time to complete appointments, etc. Strengths: motivated, engaged in care coordination Patient expressed understanding of goal: yes Action steps to achieve this goal: 1. I will follow up with my providers as scheduled/recommended - Pulmonology: TBD - Mental Health weekly - PT, OT and ROUNDER HAND, continuing through [facility] [place]: - PCP: 09/18/2024 & 10/15/2024. - Vascular [...] clinic with 24/ after hours services available. Plant Maintenance Manager will remain available as needed. documented as of this encounter Visit Diagnoses Not on filedocumented in this encounter Additional Health Concerns Active Problems Noted Date Diagnosed Date Increased risk of re-admission 02/18/2024 Infection Onset Date Last Indicated Resolved Time Rule Out COVID-19 09/13/2024 09/13/2024 09/13/2024 12:31 PM HAND FORMER HELPER Assessment Noted Time PHQ-9 Depression Total Score: 5 08/03/20 24 12:49 PM HAND FORMER HELPER documented as of this encounter Care Teams Disposal Operator Relationship Specialty Start Date End Date Winston Villatoro OD [facility] [address] [facility] [address] [place], [place] [phone] PCP - Ophthalmology Ophthalmology 02/11/13 Denise Woodson APRN MICROWAVE SUPERVISOR [address] [place] [address] PCP - General Family Practice 09/21/20 Denise Woodson APRN MICROWAVE SUPERVISOR [address] [place] [address] Assigned PCP 07/17/20 Usha Simon APRN MICROWAVE SUPERVISOR 9 [facility]2[address] [address] Nurse Practitioner Neurological Surgery 01/24/24 Dangelo Salinas MD [address] [facility] [address] [address] Neurology 01/27/24 Anastasia Stearns, RN Lead Plant Maintenance Manager 02/06/24 Germaine Lopez, W Community Health Worker Primary Care - CC 02/18/24 Joya Lira [facility] [address] [place] [address] Pharmacist Pharmacist 05/25/24 Joya Lira [facility] [address] [place] [address] Assigned MTM Pharmacist 06/08/24 Fabi Coates MD [address] [place] [address] 75 [place] [address] Genetics, Clinical 06/18/24 Danna Cardenas PA-C [address] [place] [address] Assigned Heart and Vascular Provider 07/08/24 Arthur Salas LAB ANIMAL TECHNICIAN [address] [place] [address] Assigned Behavioral Health Provider 08/08/24 Randy Maradiaga DO 909 [place] [address] Assigned Neuroscience Provider 08/08/24 documented as of this encounter
--- OUTSIDE RECORDS SUMMARY | 2024-09-20 18:08 | XMS_ITS | Encounter Summary ---
Author Organization [place] Address [address] [place] [address] Care Team Providers Care Biochemical Development Engineer Name Role Phone Wintson Villatoro OD Unavailable [phone] Denise Woodson APRN MANAGER OF PROGRAM Unavailable [phone] Denise Woodson APRN MANAGER OF PROGRAM Primary Care Provider Usha Simon APRN MANAGER OF PROGRAM Unavailable + [phone] Dangelo Salinas MD Unavailable Anastasia Stearns RN Unavailable [phone] Germaine Lopez [facility] Unavailable [phone] Lisa Zambrano MD Unavailable + [phone] Raul Hoyos MD Unavailable Joya Lira [facility] Unavailable [phone] Joya Lira [facility] Unavailable [phone] Fabi Coates MD Unavailable [phone] Robin Catalan MD Unavailable [phone] Danna Cardenas PA-C Unavailable [phone] Felicita Desai RN Unavailable Unavailab Arthur Rios Unavailable [phone] Randy Maradiaga DO Unavailable + Encounter Details Date Type Department Care Team (Late st Contact Info) Description 05/27/2024 MyC Medical Advice Se [facility] [address] [place] [address] Rohit Barcenas MD 420 [facility] 295 [place] [address] Social History Tobacco Use Types [...] Never 02/28/2024 How often do you attend synagogue or latter-day serv ices? 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 Not on file Not on file Not on file Not on file Not on file documented as of this encounter Plan of Treatment Upcoming Encounters Date Type Department Care Team (Late st Contact Info) Description 09/25/2024 11:00 AM FRONT END SPECIALIST Office Visit [facility] [address] [place] [phone] Denise Woodson, BARRERA MANAGER OF PROGRAM [address] [facility] [place], [place] [address] 09/29/2024 9:00 AM FRONT END SPECIALIST Virtual Visit [facility] Neurology [address] 3rd [place] [address] Randy Maradiaga, [address] [address] 10/09/2024 1:20 PM FRONT END SPECIALIST Office Visit [facility] Heart [facility] [place] 6405 [facility] [address] [place] [phone] Danna Cardenas PA-C 6405 [place] [address] 10/15/2024 11:00 AM FRONT END SPECIALIST Office Visit [facility] [address] [place] [phone] Denise Woodson, BARRERA MANAGER OF PROGRAM [address] [place] [address] 10/30/2024 4:00 PM FRONT END SPECIALIST Virtual Visit [facility] Vascular [facility] [place] [address] [place] [phone] Lisa Zambrano MD [address] [place] [address] 12/29/2024 12:45 PM CDT Office Visit [facility] Explorer [address] [phone] Fabi Coates MD [address] [address] 12/29/2024 1:45 PM CDT Office Visit [facility] [facility] [address] [phone] Fabi Coates MD [address] [address] 06/01/2025 11:15 AM CDT Appointment [facility] Care [facility] Imaging [address] [place] [address] [place] [phone] Robin Zepeda MD [address] [place] [address] 06/04/2025 11:00 AM CDT Office Visit [facility] Neurosurgery [address]rd [place] [address] Robin Zepeda MD [address] [place] [address] Usha Simon APRN [address] [address] documented as of this encounter Goals Goal Patient Goal Type Associated Problems Recent Progress Patient-Stated? Author I would like additional resources and support to manage my health and prevent future avoidable ED visits/hospital admissions Care Plan Increased risk of re-admission 40%( 4 3:02 PM FRONT END SPECIALIST) Anastasia Talamantes, RN Note: Barriers: diagnosis of multiple, chronic, complex medical conditions, provider availability - wait time to complete appointments, etc. Strengths: motivated, engaged in care coordination Patient expressed understanding of goal: yes Action steps to achieve this goal: 1. I will follow up with my providers as scheduled/recommended - Pulmonology: TBD - Mental Health weekly - PT, OT and HOUSE DIRECTOR, continuing through [facility] [place]: - PCP: 09/18/2024 & 10/15/2024. - Vascular [...] clinic with 24/ after hours services available. Funeral Director will remain available as needed. documented as of this encounter Visit Diagnoses Not on filedocumented in this encounter Additional Health Concerns Active Problems Noted Date Diagnosed Date Increased risk of re-admission 02/18/2024 Infection Onset Date Last Indicated Resolved Time Rule Out COVID-19 09/13/2024 09/13/2024 09/13/2024 12:31 PM FRONT END SPECIALIST Assessment Noted Time PHQ-9 Depression Total Score: 5 03/17/20 24 9:45 AM CDT documented as of this encounter Care Teams Biochemical Development Engineer Relationship Specialty Start Date End Date Winston Villatoro OD [facility] [place] [address] [place] [address] PCP - Ophthalmology Ophthalmology 02/11/13 Denise Woodson APRN MANAGER OF PROGRAM [address] [place] [place] [address] PCP - General Family Practice 09/21/20 Denise Woodson APRN MANAGER OF PROGRAM [address] [place] [address] Assigned PCP 07/17/20 Usha Simon APRN CNP [address] [address] Nurse Practitioner Neurological Surgery 01/24/24 Dangelo Salinas MD [address] [place] [address] Neurology 01/27/24 Anastasia Stearns, RN Lead Funeral Director 02/06/24 Germaine Lopez, W Community Health Worker Primary Care - CC 02/18/24 Lisa Zambrano MD 6405 [facility] [address] [place] [address] Assigned Heart and Vascular Provider 05/08/24 07/07/24 Raul Hoyos MD [address] [address] Assigned Neuroscience Provider 05/08/24 07/07/24 Joya Lira [facility] [address] [place] [address] Pharmacist Pharmacist 05/25/24 Joya Lira [facility] [address] [place] [address] Assigned MTM Pharmacist 06/08/24 Fabi Coates MD [address] [place] [address] 75 [place] [address] Genetics, Clinical 06/18/24 Robin Zepeda MD 909 [facility] FC8331DE [place] [address] Assigned Neuroscience Provider 07/08/24 08/07/24 Danna Cardenas PA-C 6405 [place] [address] Assigned Heart and Vascular Provider 07/08/24 Felicita Desai, RN Lead Funeral Director 07/14/24 07/28/24 Arthur Salas [facility] [address] [place] [address] Assigned Behavioral Health Provider 08/08/24 Randy Maradiaga DO 9 [place] [address] Assigned Neuroscience Provider 08/08/24 documented as of this encounter
--- OUTSIDE RECORDS SUMMARY | 2024-09-20 18:08 | XMS_ITS | Encounter Summary ---
Author Organization [place] Address [address] [place] [address] Care Team Providers Care Cementer Helper Name Role Phone Winston Villatoro OD Unavailable [phone] Denise Woodson APRN WATER RESOURCES PROGRAM DIRECTOR Unavailable [phone] Denise Woodson APRN WATER RESOURCES PROGRAM DIRECTOR Primary Care Provider Usha Simon APRN WATER RESOURCES PROGRAM DIRECTOR Unavailable Dangelo Salinas MD Unavailable Anastasia Stearns RN Unavailable [phone] Germaine Lopez [facility] Unavailable [phone] Joya Lira [facility] Unavailable Joya Lira [facility] Unavailable Fabi Coates MD Unavailable [phone] Robin Catalan MD Unavailable Danna Cardenas PA-C Unavailable [phone] Felicita Desai RN Unavailable Unavailab Arthur RiosSW Unavailable [phone] Randy Maradiaga DO Unavailable + Encounter Details Date Type Department Care Team (Late st Contact Info) Description 07/18/2024 [facility] [address] [place] [phone] Denise Woodson APRN [facility] [address] [facility] [place], [place] [id number] Social History Tobacco Use Types Packs/Day Years [...] How often do you attend sabianism or tenriism serv ices? 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 Qing Copeland Lead Drill Press Operator Helper [facility] documented in this encounter Plan of Treatment Upcoming Encounters Date Type Department Care Team (Late st Contact Info) Description 09/25/2024 11:00 AM FINANCIAL SERVICES MANAGER Office Visit [facility] [address] [place] [phone] Denise Woodson, BARRERA WATER RESOURCES PROGRAM DIRECTOR [address] [place] [address] 09/29/2024 9:00 AM FINANCIAL SERVICES MANAGER Virtual Visit [facility] Neurology [address] [phone] Randy Maradiaga, [address] [address] 10/09/2024 1:20 PM FINANCIAL SERVICES MANAGER Office Visit [facility] Heart [facility] 6405 [facility] [address] [place] [phone] Danna Cardenas PA-C 6405 [place] [address] 10/15/2024 11:00 AM FINANCIAL SERVICES MANAGER Office Visit [facility] [address] [place] [address] Denise Woodson, BARRERA WATER RESOURCES PROGRAM DIRECTOR [address] [place] [address] 10/30/2024 4:00 PM FINANCIAL SERVICES MANAGER Virtual Visit [facility] Vascular [facility] [address] [place] [phone] Lisa Zambrano MD [address] [place] [address] 12/29/2024 12:45 PM CDT Office Visit [facility] Pediatric Specialty Clinic [address] [place] [phone] Fabi Coates MD [address] [address] 12/29/2024 1:45 PM CDT Office Visit [facility] Pediatric Specialty Clinic [address] [place] [address] [phone] Fabi Coates MD [address] [place] [address] 06/01/2025 11:15 AM CDT Appointment [facility] Imaging [address] [place] [address] [place] [address] Robin Zepeda MD [address] [place] [address] 06/04/2025 11:00 AM CDT Office Visit [facility] Neurosurgery [address] 3rd [place] [phone] Robin Zepeda MD [address] [place] [address] Usha Simon APRN [address] [id number] documented as of this encounter Goals Goal Patient Goal Type Associated Problems Recent Progress Patient-Stated? Author I would like additional resources and support to manage my health and prevent future avoidable ED visits/hospital admissions Care Plan Increased risk of re-admission 40%( 4 3:02 PM FINANCIAL SERVICES MANAGER) Anastasia Talamantes, RN Note: Barriers: diagnosis of multiple, chronic, complex medical conditions, provider availability - wait time to complete appointments, etc. Strengths: motivated, engaged in care coordination Patient expressed understanding of goal: yes Action steps to achieve this goal: 1. I will follow up with my providers as scheduled/recommended - Pulmonology: TBD - Mental Health weekly - PT, OT and TYPER, continuing through [facility] [place]: - PCP: 09/18/2024 & 10/15/2024. - Vascular [...] clinic with 24/7 after hours services available. Emergency Medical Tech will remain available as needed. documented as of this encounter Visit Diagnoses Not on filedocumented in this encounter Additional Health Concerns Active Problems Noted Date Diagnosed Date Increased risk of re-admission 02/18/2024 Infection Onset Date Last Indicated Resolved Time Rule Out COVID-19 09/13/2024 09/13/2024 09/13/2024 12:31 PM FINANCIAL SERVICES MANAGER Assessment Noted Time PHQ-9 Depression Total Score: 14 024 11:46 AM CDT documented as of this encounter Care Teams Cementer Helper Relationship Specialty Start Date End Date Winston Villatoro OD [facility] [address] [place] [id number] PCP - Ophthalmology Ophthalmology 02/11/13 Denise Woodson APRN WATER RESOURCES PROGRAM DIRECTOR [address] [address] [id number] PCP - General Family Practice 09/21/20 Denise Woodson APRN WATER RESOURCES PROGRAM DIRECTOR [address] [place] [address] Assigned PCP 07/17/20 Usha Simon APRN WATER RESOURCES PROGRAM DIRECTOR [address] [address] Nurse Practitioner Neurological Surgery 01/24/24 Dangelo Salinas MD [address] [place], [place] [phone] Neurology 01/27/24 Anastasia Stearns, RN Lead Emergency Medical Tech 02/06/24 Germaine Lopez, W Community Health Worker Primary Care - CC 02/18/24 Joya Lira [facility] [address] [place], [place] [phone] Pharmacist Pharmacist 05/25/24 Joay Lira [facility] [address] [place], [place] [phone] Assigned MTM Pharmacist 06/08/24 Fabi Coates MD [address] [place] [address] 75 [place], [place] [address] Genetics, Clinical 06/18/24 Robin Zepeda MD [address] 6[address] Assigned Neuroscience Provider 07/08/24 08/07/24 Danna Cardenas PA-C [address] [place] [address] Assigned Heart and Vascular Provider 07/08/24 Felicita Desai, RN Lead Emergency Medical Tech 07/14/24 07/28/24 Arthur Salas [facility] [address] [place] [address] Assigned Behavioral Health Provider 08/08/24 Randy Maradiaga DO [address] [place] [address] Assigned Neuroscience Provider 08/08/24 documented as of this encounter
--- OUTSIDE RECORDS SUMMARY | 2024-09-20 18:08 | XMS_ITS | Encounter Summary ---
Author Organization [facility] Address [address] [place] [address] Care Team Providers Care Glost Tile Sorter Name Role Phone Winston Villatoro OD Unavailable [phone] Denise Woodson APRN TRIM MOUNTER Unavailable [phone] Denise Woodson APRN [facility] Primary Care Provider Usha Simon APRN [facility] Unavailable [phone] Dangelo Salinas MD Unavailable Anastaisa Stearns RN Unavailable Germaine Lopez [facility] Unavailable [phone] Joya Lira [facility] Unavailable [phone] Joya Lira [facility] Unavailable [phone] Fabi Coates MD Unavailable [phone] Robin Catalan MD Unavailable [phone] Danna Cardenas PA-C Unavailable [phone] Encounter Details Date Type Department Care Team (Latest Contact Info) Description 08/07/2024 Travel Social History Tobacco Use Types Packs/Day [...] How often do you attend spiritism or jain serv ices? 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 Not on file Not on file Not on file Not on file Not on file documented as of this encounter Plan of Treatment Upcoming Encounters Date Type Department Care Team (Late st Contact Info) Description 09/25/2024 11:00 AM BOOKBINDER CHIEF Office Visit [facility] [address] [place] [phone] Denise Woodson APRN [facility] [address] [place], [place] [phone] 09/29/2024 9:00 AM BOOKBINDER CHIEF Virtual Visit [facility] Neurology [facility] [address] [place] [address] Randy Maradiaga, [address] [place] [address] 10/09/2024 1:20 PM BOOKBINDER CHIEF Office Visit [facility] [address] [facility] [address] [place] [phone] Danna Cardenas PA-C [address] [place], [place] [address] 10/15/2024 11:00 AM BOOKBINDER CHIEF [facility] [address] [place] [phone] Denise Woodson APRN TRIM MOUNTER [address] [place], [place] [phone] 10/30/2024 4:00 PM BOOKBINDER CHIEF Virtual Visit [facility] Vascular [facility] [address] [place] [phone] Lisa Zambrano MD [address] [place], [place] [address] 12/29/2024 12:45 PM CDT Office Visit [facility] [address] [place] [address] [phone] Fabi Coates MD [address] [place] [address] 12/29/2024 1:45 PM CDT Office Visit [facility] [address] [place] [phone] Fabi Coates MD [address] [place] [address] 06/01/2025 11:15 AM CDT Appointment [facility] Imaging [address] [place] [phone] Robin Zepeda MD [address] [place] [address] 861565 06/04/2025 11:00 AM CDT Office Visit [facility] Neurosurgery Clinic [address] 3rd [place] [phone] Robin Zepeda MD [address] [place] [address] [phone] Usha Simon APRN TRIM MOUNTER [address] [place] [address] [phone] documented as of this encounter Goals Goal Patient Goal Type Associated Problems Recent Progress Patient-Stated? Author I would like additional resources and support to manage my health and prevent future avoidable ED visits/hospital admissions Care Plan Increased risk of re-admission 40%( 4 3:02 PM BOOKBINDER CHIEF) Anastasia Talamantes, RN Note: Barriers: diagnosis of multiple, chronic, complex medical conditions, provider availability - wait time to complete appointments, etc. Strengths: motivated, engaged in care coordination Patient expressed understanding of goal: yes Action steps to achieve this goal: 1. I will follow up with my providers as scheduled/recommended - Pulmonology: TBD - Mental Health weekly - PT, OT and PRODUCTION TEAM MEMBER, continuing through [facility] [place]: - PCP: 09/18/2024 & 10/15/2024. - Vascular [...] with 24/7 after hours services available. Senior Ssis Developer will remain available as needed. documented as of this encounter Visit Diagnoses Not on filedocumented in this encounter Additional Health Concerns Active Problems Noted Date Diagnosed Date Increased risk of re-admission 02/18/2024 Assessment Noted Time PHQ-9 Depression Total Score: 5 08/03/20 24 12:49 PM BOOKBINDER CHIEF documented as of this encounter Care Teams Glost Tile Sorter Relationship Specialty Start Date End Date Winston Villatoro OD [facility] [address] [facility] [address] [place] [address] PCP - Ophthalmology Ophthalmology 02/11/13 Denise Woodson APRN TRIM MOUNTER [address] [facility] [address] PCP - General Family Practice 09/21/20 Denise Woodson APRN TRIM MOUNTER [address] [place] [address] Assigned PCP 07/17/20 Usha Simon APRN TRIM MOUNTER [address] [facility] [id number] [address] Nurse Practitioner Neurological Surgery 01/24/24 Dangelo Salinas MD [address] [place], [place] [phone] Neurology 01/27/24 Anastasia Stearns, RN Lead Senior Ssis Developer 02/06/24 Germaine Lopez, W Community Health Worker Primary Care - CC 02/18/24 Joya Lira [facility] [address] [place] [address] Pharmacist Pharmacist 05/25/24 Joya Lira [facility] [address] [place] [address] Assigned MTM Pharmacist 06/08/24 Fabi Coates MD [address] [facility] [address] [place], [place] 7784[address] Genetics, Clinical 06/18/24 Robin Zepeda MD [address] [facility] [id number] [place] [address] Assigned Neuroscience Provider 07/08/24 08/07/24 Danna Cardenas PA-C [address] [place] [address] Assigned Heart and Vascular Provider 07/08/24 documented as of this encounter
--- OUTSIDE RECORDS SUMMARY | 2024-09-20 18:08 | XMS_ITS | Encounter Summary ---
Author Organization [facility] Address [address] [place] [address] Care Team Providers Care Return Agent Airport Name Role Phone Winston Villatoro OD Unavailable Denise Woodson APRN INTERSTATE BUS DRIVER Unavailable [phone] Denise Woodson APRN INTERSTATE BUS DRIVER Primary Care Provider Usha Simon APRN INTERSTATE BUS DRIVER Unavailable [phone] Dangelo Salinas MD Unavailable Anastasia Stearns RN Unavailable Germaine Lopez [facility] Unavailable [phone] Joya Lira [facility] Unavailable [phone] Joya Lira [facility] Unavailable Fabi Coates MD Unavailable [phone] Robin Catalan MD Unavailable Danna Cardenas PA-C Unavailable [phone] [place] Salas Unavailable [phone] Randy Maradiaga DO Unavailable + Reason for Visit * Reason Onset Date Comments Forms 07/29/2024 [employer] - Return to work/ Workability Form Encounter Details Date Type Department Care Team (Late st Contact Info) Description 07/29/[address] [facility] [address] [facility] [place] [address] [facility] [address] [facility] [place] [address] Forms (Patient/[employer] - R... Social History Tobacco Use Types Packs/Day Years [...] How often do you attend confucianism or denominational serv ices? 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 Patient/[facility] Where did/will the form come from? form was sent via [employer] When is form/letter needed by: 08/04/24 How would you like the form/letter returned: Fax to [facility] Employee [facility] (JOSE LUIS on file - 05/21/24),then send form to Pt via [employer] Patient Notified form requests are processed in 5-7 business days:Yes Could we send this information to you in [employer] or would you prefer to receive a phone call?: Patient would prefer a phone call Okay to leave a detailed message?: N/A at Cell number on file: Telephone Information: NDER INSPECTOR documented in this encounter Plan of Treatment Upcoming Encounters Date Type Department Care Team (Late st Contact Info) Description 09/25/2024 11:00 AM CYLINDER INSPECTOR Office Visit [facility] [address] [place] [address] Denise Woodson APRN [facility] [address] [place], [place] [phone] 09/29/2024 9:00 AM CYLINDER INSPECTOR Virtual Visit [facility] Neurology Clinic [address] 3rd [place] [phone] Randy Maradiaga, [address] [address] 10/09/2024 1:20 PM CYLINDER INSPECTOR Office Visit [facility] Heart [facility] [address] [facility] [address] [place] [phone] Danna Cardenas PA-C [address] [place], [place] 3[address] 10/15/2024 11:00 AM CYLINDER INSPECTOR Office Visit [facility] [address] [place] [address] Denise Woodson APRN INTERSTATE BUS DRIVER [address] [place] [address] 10/30/2024 4:00 PM CYLINDER INSPECTOR Virtual Visit [facility] V[facility] [place] [address] [place] [address] Lisa Zambrano MD [address] [place] [address] 12/29/2024 12:45 PM CDT Office Visit [facility]ty [facility] [address] [place] [address] [phone] Fabi Coates MD [address] [place] [address] 12/29/2024 1:45 PM CDT Office Visit [facility] Pediatric Specialty Clinic [address] [place] [address] [phone] Fabi Coates MD [address] [place] [address] 06/01/2025 11:15 AM CDT Appointment [facility] Specialty Care Center Imaging [address] [place] [phone] Robin Zepeda MD [address] [place], [place] [address] [address] 06/04/2025 11:00 AM CDT Office Visit [facility] Neurosurgery [address] 3rd [place] [phone] Robin Zepeda MD [address] [place] [address]265 Usha Simon APRN CNP [address] [place] [address] 970235 documented as of this encounter Goals Goal Patient Goal Type Associated Problems Recent Progress Patient-Stated? Author I would like additional resources and support to manage my health and prevent future avoidable ED visits/hospital admissions Care Plan Increased risk of re-admission 40%( 3:02 PM CYLINDER INSPECTOR) Anastasia Talamantes, RN Note: Barriers: diagnosis of multiple, chronic, complex medical conditions, provider availability - wait time to complete appointments, etc. Strengths: motivated, engaged in care coordination Patient expressed understanding of goal: yes Action steps to achieve this goal: 1. I will follow up with my providers as scheduled/recommended - Pulmonology: TBD - Mental Health weekly - PT, OT and PACKAGING SPECIALIST, continuing through [facility] [place]: - PCP: 09/18/2024 & 10/15/2024. - Vascular [...] clinic with 24/7 after hours services available. Cargo Station Worker will remain available as needed. documented as of this encounter Visit Diagnoses Not on filedocumented in this encounter Additional Health Concerns Active Problems Noted Date Diagnosed Date Increased risk of re-admission 02/18/2024 Infection Onset Date Last Indicated Resolved Time Rule Out COVID-19 09/13/2024 09/13/2024 09/13/2024 12:31 PM CYLINDER INSPECTOR Assessment Noted Time PHQ-9 Depression Total Score: 14 024 11:46 AM CDT documented as of this encounter Care Teams Return Agent Airport Relationship Specialty Start Date End Date Winston Villatoro OD [facility] [place] [address] [place], [place] [id number] PCP - Ophthalmology Ophthalmology 02/11/13 Denise Woodson APRN INTERSTATE BUS DRIVER [address] [facility] [place] [id number] PCP - General Family Practice 09/21/20 Denise Woodson APRN INTERSTATE BUS DRIVER [address] [facility] [place] [id number] Assigned PCP 07/17/20 Usha Simon APRN INTERSTATE BUS DRIVER 909 [facility], [place] [phone] Nurse Practitioner Neurological Surgery 01/24/24 Dangelo Salinas MD [address] [place], [place] [phone] Neurology 01/27/24 Anastasia Stearns, RN Lead Cargo Station Worker 02/06/24 Germaine Lopez, CHW Community Health Worker Primary Care - CC 02/18/24 Joya Lira R[facility] [address] [place], [place] [phone] Pharmacist Pharmacist 05/25/24 Joya Lira [facility] [address] [place] [address] Assigned MTM Pharmacist 06/08/24 Fabi Coates MD [address] [facility] [address] [place] [address] Genetics, Clinical 06/18/24 Robin Zepeda MD [address] [facility] BX9101KY [place], [place] [address] Assigned Neuroscience Provider 07/08/24 08/07/24 Danna Cardenas PA-C [address] [place] [address] Assigned Heart and Vascular Provider 07/08/24 [place] Salas LICSW [address] [place] [address] Assigned Behavioral Health Provider 08/08/24 Randy Maradiaga DO [address] [place], [place] [address] Assigned Neuroscience Provider 08/08/24 documented as of this encounter
--- OUTSIDE RECORDS SUMMARY | 2024-09-20 18:08 | XMS_ITS | Encounter Summary ---
Author Organization [facility] Address [address] [place] [address] Care Team Providers Care Core Cleaner Name Role Phone Winston Villatoro OD Unavailable [phone] Denise Woodson APRN MILITARY PILOT Unavailable [phone] Denise Woodson APRN [facility]ARY PILOT Primary Care Provider Usha Simon APRN [employer]ARY PILOT Unavailable Dangelo Salinas MD Unavailable Anastasia Stearns RN Unavailable Germaine Lopez [facility] Unavailable [phone] Joya Lira [facility] Unavailable Joya Lira [facility] Unavailable Fabi Coates MD Unavailable [phone] Danna Cardenas PA-C Unavailable [phone] Arthur Salas [employer] Unavailable [phone] Randy Maradiaga DO Unavailable + Encounter Details Date Type Department Care Team (Late st Contact Info) Description 08/10/2024 3:00 PM DIRECTOR OF CONSUMER AFFAIRS Virtual Visit [facility] Mental Health and Addiction [address] [place] [phone] Arthur Salas, [facility] [address] [place] [address] MONAE (generalized anxiety disorder) (Primary Dx); MDD (major depressive disorder), recurrent episode, moderate (H) Social History Tobacco Use Types Packs/Day [...] How often do you attend lutheran or shinto serv ices? 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 [facility] Progress Note Patient Name: Alcon Zamora Date: 08/10/2024 Service Type: Individual Session Start Time: 15:03 Session End Time: 15:58 Session Length: 55 Session #: 1 Attendees: Client attended alone Service Modality: Video Visit: Provider verified identity through the following two step process. Patient provided: Patient is known previously to provider Telemedicine Visit: The patient's condition can be safely assessed and treated via synchronous audio and visual telemedicine encounter. Reason for Telemedicine Visit: Services only offered telehealth Originating Site (Patient Location): Patient's home Distant Site (Provider Location): Provider Remote Setting- Home Office Consent: The patient/guardian has verbally consented to: the potential risks and benefits of telemedicine (video visit) versus in person care; bill my insurance or make self-payment for services provided; and responsibility for payment of non-covered services. Patient would like the video invitation sent by: My Chart Mode of Communication: Video Conference via [facility]well Distant Location (Provider): Off-site As the provider I attest to compliance with applicable laws and regulations related to telemedicine. DATA Extended Session (53+ minutes): - Patient's presenting concerns require more intensive interventionthan could be completed within the usual service Interactive Complexity: No Crisis: No Progress Since Last Session (Related to Symptoms / Goals / Homework): Symptoms: Improving : less anxious, less depressed Homework: Partially completed Episode of Care Goals: Minimal progress - ACTION (Actively working towards change); Intervened by reinforcing change plan / affirming steps taken Current / Ongoing Stressors and Concerns: Patient was offered the spot that was opened this after noon. She has been thinking much about her care since her stroke. Shared her encounters and how her care was delayed due to lack of time to listen and fully assess her needs. Shared she has been being blamed for her delayed care. Patient had a psychotherapist before her stroke. She was then referred to this com writer before checking if she had another provider. She was referred for CBT even though the other therapist also used the modality. Patient and com writer concluded it would be better to return to her therapist in the community. Should she needs to work on her trauma, and should she find out her therapist is not doing trauma work, she will then reach out com writer to start EMDR. Patient is planning to return to work next Saturday. She will start with 4 hours /day. She will be working from home. Patient has started her neuro testing today. She got PT, speech therapy. Treatment Objective(s) Addressed in This Session: Results from DA Support and guidance Intervention: Processed current concerns. DA results. Discussion bout the next steps Safety Plan: no safety concern Assessments completed prior to visit: The following assessments were completed by patient for this visit: PHQ2: 07/30/2024 8:21 AM 07/02/2024 7:12 AM 05/04/2024 12:10 PM 04/14/2024 9:21 AM 02/12/2024 3:26 PM 02/04/2024 10:44 AM 07/27/2021 8:19 AM PHQ-2 (??1999 [employer]) Q1: Little interest or pleasure in doing things 1 1 1 0 2 3 0 Q2: Feeling down, depressed or hopeless 1 1 1 1 2 3 0 PHQ-2 Score 2 2 2 1 4 6 0 Q1: Little interest or pleasure in doing things Several days Not at all Q2: Feeling down, depressed or hopeless Several days Not at all PHQ-2 Score 2 0 Patient-reported ASSESSMENT: Current Emotional / Mental Status (status of significant symptoms): Risk status (Self / Other harm or suicidal ideation) Patient denies current fears or concerns for personal safety. Patient denies current or recent suicidal ideation or behaviors. Patient denies current or recent homicidal ideation or behaviors. Patient denies current or recent self injurious behavior or ideation. Patient denies other safety concerns. Patient reports there has been no change in risk factors since their last session. Patient reports there has been no change in protective factors since their last session. Recommended that patient call 911 or go to the local ED should there be a change in any of these risk factors Appearance: Appropriate Eye Contact: Good Psychomotor Behavior: Normal Attitude: Cooperative Orientation: Person Place Time Situation Speech Rate / Production: Normal/ Responsive Volume: Normal Mood: Normal Affect: Appropriate Thought Content: Clear Thought Form: Coherent Logical Insight: Good Medication Review: No changes to current psychiatric medication(s) Medication Compliance: Yes Changes in Health Issues: None reported Chemical Use Review: Substance Use: Chemical use reviewed, no active concerns identified Tobacco Use: No current tobacco use. Diagnosis: 1. MONAE (generalized anxiety disorder) 2. MDD (major depressive disorder), recurrent episode, moderate (H) Collateral Reports Completed: Not Applicable PLAN: (Patient Tasks / Therapist Tasks / Other) Patient will return to her previous therapist. Will return for EMDR once she is ready to process her trauma. Patient's next visit is in 2 weeks. MARA Higginbotham Individual Treatment Plan Not completed. Patient is returning to her previous therapist. MARA Higginbotham August 10, 2024 CTOR OF CONSUMER AFFAIRS documented in this encounter Plan of Treatment Upcoming Encounters Date Type Department Care Team (Late st Contact Info) Description 09/25/2024 11:00 AM DIRECTOR OF CONSUMER AFFAIRS Office Visit [facility] [address] [place] [phone] Denise Woodson APRN MILITARY PILOT [address] [place], [place] [phone] 09/29/2024 9:00 AM DIRECTOR OF CONSUMER AFFAIRS Virtual Visit [facility] Neurology [address] [phone] Randy Maradiaga, [address] [address] 10/09/2024 1:20 PM DIRECTOR OF CONSUMER AFFAIRS Office Visit [facility] [address] [facility] [address] [place] [phone] Danna Cardenas PA-C [address] [place], [place] [address] 10/15/2024 11:00 AM DIRECTOR OF CONSUMER AFFAIRS Office Visit [facility] [address] [place] [phone] Denise Woodson, INSURANCE MARKETING SPECIALIST [employer] [address] [place] [address] 10/30/2024 4:00 PM DIRECTOR OF CONSUMER AFFAIRS Virtual Visit [facility] [place] [address] [place] [phone] Lisa Zambrano MD [address] [place] [address] 12/29/2024 12:45 PM CDT Office Visit [facility] [address] [place], [place] [address]e [facility] [address] [phone] Fabi Coates MD [address] [place] [address] 12/29/2024 1:45 PM CDT Office Visit [facility] [address] [place], [place] [address] [address] [phone] Fabi Coates MD [address] [place] [address] 06/01/2025 11:15 AM CDT Appointment [facility] [address] [facility] [address] [place] [phone] Robin Zepeda MD [address] [place] [address] 06/04/2025 11:00 AM CDT Office Visit [facility] Neurosurgery [address] 3[address] [place] [phone] Robin Zepeda MD [address] [place] [address] [place] [address] Usha Simon APRN [employer]ARY PILOT [address] [id number] [place] [address] documented as of this encounter Goals Goal Patient Goal Type Associated Problems Recent Progress Patient-Stated? Author I would like additional resources and support to manage my health and prevent future avoidable ED visits/hospital admissions Care Plan Increased risk of re-admission 40%( 4 3:02 PM DIRECTOR OF CONSUMER AFFAIRS) Anastasia Talamantes, RN Note: Barriers: diagnosis of multiple, chronic, complex medical conditions, provider availability - wait time to complete appointments, etc. Strengths: motivated, engaged in care coordination Patient expressed understanding of goal: yes Action steps to achieve this goal: 1. I will follow up with my providers as scheduled/recommended - Pulmonology: TBD - Mental Health weekly - PT, OT and RETORT COOLER, continuing through [facility]: - PCP: 09/18/2024 & 10/15/2024. - Vascular [...] with 24/7 after hours services available. Emergency Communications Dispatcher will remain available as needed. documented as of this encounter Visit Diagnoses Diagnosis MONAE (generalized anxiety disorder)- Primary Generalized anxiety disorder MDD (major depressive disorder), recurrent episode, moderate (H) Major depressive disorder, recurrent episode, moderate documented in this encounter Additional Health Concerns Active Problems Noted Date Diagnosed Date Increased risk of re-admission 02/18/2024 Assessment Noted Time PHQ-9 Depression Total Score: 5 08/03/20 24 12:49 PM DIRECTOR OF CONSUMER AFFAIRS documented as of this encounter Care Teams Core Cleaner Relationship Specialty Start Date End Date Winston Villatoro OD [facility] [place] [address] [place] [address] PCP - Ophthalmology Ophthalmology 02/11/13 Denise Woodson APRN [facility] P[employer]OT [address] [place] [address] PCP - General Family Practice 09/21/20 Denise Woodson APRN [facility] P[employer]OT [address] [place] [address] Assigned PCP 07/17/20 Usha Simon APRN [facility]ARY PILOT [address] [facility] [address] Nurse Practitioner Neurological Surgery 01/24/24 Dangelo Salinas MD [address] [place] [address] Neurology 01/27/24 Anastasia Stearns, RN Lead Emergency Communications Dispatcher 02/06/24 Germaine Lopez, CHW Community Health Worker Primary Care - CC 02/18/24 Joya Lira RPH [address] [place], [place] [phone] Pharmacist Pharmacist 05/25/24 Joya Lira RPH [address] [place], [place] [phone] Assigned MTM Pharmacist 06/08/24 Fabi Coates MD [address] [place] [address] [place], [place] [address] Genetics, Clinical 06/18/24 Danna Cardenas PA-C [address] [place], [place] [phone] Assigned Heart and Vascular Provider 07/08/24 Arthur Salas LICSW [address] [address] Assigned Behavioral Health Provider 08/08/24 Randy Maradiaga DO [address] [place] [address] Assigned Neuroscience Provider 08/08/24 documented as of this encounter
--- OUTSIDE RECORDS SUMMARY | 2024-09-20 18:08 | XMS_ITS | Encounter Summary ---
Author Organization [place] Address [address] [place] [address] Care Team Providers Care Personal Lines Agent Name Role Phone Winston Villatoro OD Unavailable [phone] Denise Woodson APRN METAL MOULDER Unavailable [phone] Denise Woodson APRN METAL MOULDER Primary Care Provider Usha Simon APRN METAL MOULDER Unavailable Dangelo Salinas MD Unavailable Anastasia Stearns RN Unavailable [phone] Germaine Lopez [facility] Unavailable [phone] Joya Lira [facility] Unavailable Joya Lira [facility] Unavailable Fabi Coates MD Unavailable [phone] Robin Catalan MD Unavailable Danna Cardenas PA-C Unavailable [phone] Reason for Referral * Diagnostic Imaging XR (Routine) - Pending Review Specialty Diagnoses / Procedures Referred By Nila t Referred To Contact Radiology. Diagnoses Chest pain, unspecified type Procedures Radiologist Consult For Cardiology Danna Cardenas PA-C [address] [place] [address] Phone: tel: fax: Referral ID Status Reason Start Date Expiration Date V isits Requested Visits Authorized [id number] Pending Review 08/07/2024 08/07/2025 1 1 R EQUIPMENT COMMANDING OFFICER * Diagnostic Imaging CT Scan (Routine) - Closed Specialty Diagnoses / Procedures Referred By Contac t Referred To Contact Cardiology Diagnoses Chest pain, unspecified type Procedures CTA Angiogram coronary artery Danna Cardenas PA-C [address] [place] [address] Phone: tel: fax: [address] [facility] [address] [facility] [place] [address] Phone: tel: Referral ID Status Reason Start Date Expiration Date Visits Re quested Visits Authorized [id number] Closed 06/26/2024 06/26/2025 1 1 R EQUIPMENT COMMANDING OFFICER Reason for Visit * Diagnostic Imaging CT Scan (Routine) - Closed Specialty Diagnoses / Procedures Referred By Contac t Referred To Contact Cardiology Diagnoses Chest pain, unspecified type Procedures CTA Angiogram coronary artery Danna Cardenas PA-C [address] [place] [address] Phone: tel: fax: [address] [place] [address] Phone: tel: Referral ID Status Reason Start Date Expiration Date Visits Re quested Visits Authorized [id number] Closed 06/26/2024 06/26/2025 1 1 Encounter Details Date Type Department Care Team (Latest Contact Info) Description 08/07/2024 1:00 PM MOTOR EQUIPMENT COMMANDING OFFICER - 08/07/2024 11:59 PM MOTOR EQUIPMENT COMMANDING OFFICER Hospital Encounter [address] [place] [phone] Danna Cardenas PA-C [address] [place] [address] Chest pain, unspecified type Discharge Disposition: Home [...] How often do you attend zoroastrianism or mu-ism serv ices? 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 fluticasone-vilan terol (BREO ELLIPTA) 200-25 MCG/ACT inhalerIndication [...] 100 mg by mouth at bedtime. 05/29/2024 atorvastatin (LIPITOR) 10 MG tabletIndications :Cerebrovascular accident (CVA), unspecified mechanism (H) Take 1 tablet (10 mg) by mouth daily. 30 tablet 07/13/2024 citalopram (CELEXA) 10 MG tabletIndications :Anxiety Take 0.5 tablets (5 mg) by mouth daily. 45 tablet 08/04/2024 documented as of this encounter Plan of Treatment Upcoming Encounters Date Type Department Care Team (Late st Contact Info) Description 09/25/2024 11:00 AM MOTOR EQUIPMENT COMMANDING OFFICER Office Visit [facility] [address] [place] [address] Denise Woodson APRN METAL MOULDER [address] [place], [place] [phone] 09/29/2024 9:00 AM MOTOR EQUIPMENT COMMANDING OFFICER Virtual Visit [facility] Neurology Clinic [address] [place] [phone] Randy Maradiaga, [address] [address] 10/09/2024 1:20 PM MOTOR EQUIPMENT COMMANDING OFFICER Office Visit [facility] Heart [facility] [address] [facility] [address] [place] [phone] Danna Cardenas PA-C [address] [place], [place] [address] 10/15/2024 11:00 AM MOTOR EQUIPMENT COMMANDING OFFICER Office Visit [facility] [address] [place] [phone] Denise Woodson RIDER TICKET WORKER METAL MOULDER [address] [place], [place] [phone] 10/30/2024 4:00 PM MOTOR EQUIPMENT COMMANDING OFFICER Virtual Visit [facility] Vascular Clinic [place] [address] [place] [phone] Lisa Zambrano MD [address] [place] [address] 12/29/2024 12:45 PM CDT Office Visit [facility] [address] [place], [place] [address]e Explorer [address] [phone] Fabi Coates MD [address] [place] [address] 12/29/2024 1:45 PM CDT Office Visit [facility] [address] [place], [place] [address] Explorer [address] [phone] Fabi Coates MD [address] [place] [address] 06/01/2025 11:[address] [facility] Imaging [address] [place] [phone] Robin Zepeda MD [address] [place] [address] [address] 06/04/2025 11:00 AM CDT Office Visit [facility] Neurosurgery [address] 3rd [place] [phone] Robin Zepeda MD [address] [facility] [place], [place] [address] Usha Simon APRN METAL MOULDER [address] [facility] [place] [address] Scheduled Orders Name Type Priority Associated Diagnoses Orde r Schedule EKG 12-lead, tracing only EKG STAT Enter condition for order release in comments for 1 Occurrences starting 08/07/2024 documented as of this encounter Goals Goal Patient Goal Type Associated Problems Recent Progress Patient-Stated? Author I would like additional resources and support to manage my health and prevent future avoidable ED visits/hospital admissions Care Plan Increased risk of re-admission 40%( 4 3:02 PM MOTOR EQUIPMENT COMMANDING OFFICER) Anastasia Talamantes, RN Note: Barriers: diagnosis of multiple, chronic, complex medical conditions, provider availability - wait time to complete appointments, etc. Strengths: motivated, engaged in care coordination Patient expressed understanding of goal: yes Action steps to achieve this goal: 1. I will follow up with my providers as scheduled/recommended - Pulmonology: TBD - Mental Health weekly - PT, OT and DRAGLINE OPERATOR HELPER, continuing through [facility]: - PCP: 09/18/2024 & 10/15/2024. - Vascular [...] clinic with 24/7 after hours services available. Sampler Radioactive Waste will remain available as needed. documented as of this encounter Procedures Procedure Name Priority Date/Time Associated Diagnosis Comments CTA ANGIOGRAM CORONARY ARTERY Routine 08/07/2024 4:31 PM MOTOR EQUIPMENT COMMANDING OFFICER Chest pain, unspecified type RADIOLOGIST CONSULT FOR CARDIOLOGY Routine 08/07/2024 4:31 PM MOTOR EQUIPMENT COMMANDING OFFICER Chest pain, unspecified type documented in this encounter Results * Radiologist Consult For Cardiology (08/07/2024 4:31 PM MOTOR EQUIPMENT COMMANDING OFFICER) Anatomical Region Laterality Modality Computed Tomogra phy Impressions 08/10/2024 4:16 PM MOTOR EQUIPMENT COMMANDING OFFICER IMPRESSION: Pectus excavatum. Mosaic attenuation of the lungs suggests possible air trapping. MARLO FAULKNER MD Narrative 08/10/2024 4:16 PM MOTOR EQUIPMENT COMMANDING OFFICER RADIOLOGIST CONSULT FOR CARDIOLOGY 08/07/2024 4:31 PM HISTORY: Chest pain, unspecified type. COMPARISON: None. Procedure Note Marlo Faulkner MD - 08/10/2024 RADIOLOGIST CONSULT FOR CARDIOLOGY 08/07/2024 4:31 PM HISTORY: Chest pain, unspecified type. COMPARISON: None. IMPRESSION: Pectus excavatum. Mosaic attenuation of the lungs suggests possible air trapping. MARLO FAULKNER MD Danna Cardenas PA-C [facility] ORDER NASRIN Final Result * CTA Angiogram coronary artery (08/07/2024 4:31 PM MOTOR EQUIPMENT COMMANDING OFFICER) Anatomical Region Laterality Modality Cardio, SUBRAD CT BODY, UMP CT CHEST, RAD CT Computed Tomography Impressions 08/07/2024 4:43 PM MOTOR EQUIPMENT COMMANDING OFFICER IMPRESSION: 1. Normal coronary anatomy with no [...] SERGEI WATTERS MD Narrative 08/07/2024 4:43 PM MOTOR EQUIPMENT COMMANDING OFFICER Procedure: CTA ANGIOGRAM CORONARY ARTERY Examination Date: [...] Images were reconstructed and analyzed on a [employer] workstation. Scan protocol was optimized to minimize [...] Images were reconstructed and analyzed on a [employer] workstation. Scan protocol was optimized to minimize [...] that will follow separately. SERGEI WATTERS MD Danna Cardenas PA-C IMG CT ORDERABLES Final Resu lt documented in this encounter Visit Diagnoses Diagnosis Chest pain, unspecified type documented in this encounter Administered Medications Inactive Administered Medications - up to 3 most recent administrations Medication Order MAR Action Action Date Dose Rate Site iopamidol (ISOVUE-370) solution 500 mL 500 mL, Intravenous, ONCE, On Sat08/07/24 at 1430, For 1 dose $Given 08/07/2024 4:31 PM MOTOR EQUIPMENT COMMANDING OFFICER 120 mLs ivabradine (CORLANOR) tablet 5-15 mg 5-15 mg, Oral, ONCE PRN, for heart rate 66 beats per minutes (bpm) or greater; Give medication as verbally directed by the provider., Starting on Sat08/07/24 at 0723, For 1 dose, ~LESS than or EQUAL to 55 bpm: No oral medications; ~56-60 bpm: metoprolol 25 mg; ~61-65 bpm: metoprolol 50 mg; ~66-80 bpm: metoprolol 50 mg + ivabradine 10 mg; ~GREATER than 80: metoprolol 100 mg + ivabradine 15 mg; ~ Notify Provider if Systolic Blood Pressure LESS than 100 mmHg PRIOR to giving medications, and consider calling Provider if Systolic Blood Pressure LESS than 110 mmHg if using metoprolol 100 mg. Consider if heart rate is greater than 66 bpm and further heart rate reduction is needed. May be used with metoprolol., Cardiac Intra-procedure $Given 08/07/2024 1:15 PM MOTOR EQUIPMENT COMMANDING OFFICER 10 mg metoprolol tartrate (LOPRESSOR) tablet 25-100 mg 25-100 mg, Oral, ONCE PRN, for patients in whom the heart rate is 56 beats per minute (bpm) or greater and systolic blood pressure greater than 90 mm Hg, Starting on Sat08/07/24 at 0723, For 1 dose, If patient has not received metoprolol prior to the procedure. Administer one hour PRIOR to procedure. Dose to be given by CT nursing staff or PCU nursing staff. Discontinue after procedure. ~LESS than or EQUAL to 55 bpm: No oral medications; ~56-60 bpm: metoprolol 25 mg; ~61-65 bpm: metoprolol 50 mg; ~66-80 bpm: metoprolol 50 mg + ivabradine 10 mg; ~GREATER than 80 bpm: metoprolol 100 mg + ivabradine 15 mg; ~HOLD for systolic blood pressure less than 90 mmHg. ~ Notify Provider if Systolic Blood Pressure LESS than 100 mmHg PRIOR to giving medications, and consider calling Provider if Systolic Blood Pressure LESS than 110 mmHg if using metoprolol 100 mg. USE metoprolol (LOPRESSOR) UNLESS allergic to beta-blockers or contraindications (asthma, COPD with active wheezing, or advanced heart block). IF patient has asthma or COPD with wheezing, use diltiazem (avoid diltiazem if advanced second degree or third degree heart block), Cardiac Intra-procedure $Given 08/07/2024 1:15 PM MOTOR EQUIPMENT COMMANDING OFFICER 50 mg nitroGLYcerin (NITROSTAT) sublingual tablet 0.4 mg 0.4 mg, Sublingual, EVERY 15 MIN PRN, other, Administer the first dose when the patient is on the table just before starting CT scan. As verbally ordered by the provider., Starting on Sat08/07/24 at 0723, For 2 doses, If there is a delay in the procedure, administer a second dose if necessary 15 minutes after the initial dose IF directed by the provider prior to the start of the exam. Hold for systolic blood pressure less than 90 mmHg - notify provider. Notify provider prior to giving medication if patient has a history of severe aortic stenosis., Cardiac Intra-procedure $Given 08/07/2024 2:38 PM MOTOR EQUIPMENT COMMANDING OFFICER 0.4 mg sodium chloride (PF) 0.9% PF flush 40-100 mL 40-100 mL, Intravenous, ONCE, On Sat08/07/24 at 1430, For 1 dose $Given 08/07/2024 4:31 PM MOTOR EQUIPMENT COMMANDING OFFICER 100 mLs documented in this encounter Additional Health Concerns Active Problems Noted Date Diagnosed Date Increased risk of re-admission 02/18/2024 Assessment Noted Time PHQ-9 Depression Total Score: 5 08/03/20 24 12:49 PM MOTOR EQUIPMENT COMMANDING OFFICER documented as of this encounter Care Teams Personal Lines Agent Relationship Specialty Start Date End Date Winston Villatoro OD [facility] [address] [place] [address] PCP - Ophthalmology Ophthalmology 02/11/13 Denise Woodson APRN METAL MOULDER [address] [place] [address] PCP - General Family Practice 09/21/20 Denise Woodson APRN METAL MOULDER [address] [place] [address] Assigned PCP 07/17/20 Usha Simon APRN METAL MOULDER [address] [facility]121[place], [place] [address] Nurse Practitioner Neurological Surgery 01/24/24 Dangelo Salinas MD [address] [place] [address] Neurology 01/27/24 Anastasia Stearns, RN Lead Sampler Radioactive Waste 02/06/24 Germaine Lopez, W Community Health Worker Primary Care - CC 02/18/24 Joya Lira RPH [address] [address] Pharmacist Pharmacist 05/25/24 Joya Lira RPH [address] [place] [address] Assigned MTM Pharmacist 06/08/24 Fabi Coates MD [address] [facility] 75 [place], [place] [address] Genetics, Clinical 06/18/24 Robin Zepeda MD [address] [facility]121[place], [place] [address] Assigned Neuroscience Provider 07/08/24 08/07/24 Danna Cardenas PA-C [address] [place] [address] Assigned Heart and Vascular Provider 07/08/24 documented as of this encounter
--- OUTSIDE RECORDS SUMMARY | 2024-09-20 18:08 | XMS_ITS | Encounter Summary ---
Author Organization [place] Address [address] [place] [address] Care Team Providers Care Computer Network And Systems Engineer Name Role Phone Winston Villatoro OD Unavailable Denise Woodson APRN IRRIGATOR VALVE PIPE Unavailable [phone] Denise Woodson APRN IRRIGATOR VALVE PIPE Primary Care Provider Usha Simon APRN [facility] Unavailable [phone] Dangelo Salinas MD Unavailable Anastasia Stearns RN Unavailable Germaine Lopze [facility] Unavailable Joya Lira [facility] Unavailable Joya Lira [facility] Unavailable Fabi Coates MD Unavailable [phone] Robin Zepeda MD Unavailable Danna Cardenas PA-C Unavailable Felicita Desai RN Unavailable Unavailab Arthur Rios Unavailable [phone] Randy Maradiaga DO Unavailable + Reason for Visit * Reason Onset Date Comments Appointment 07/14/2024 Seizure-like act ivity (H) R sided numbness/tinglinfg Encounter Details Date Type Department Care Team (Late st Contact Info) Description 07/14/2024 Telephone [facility] Neurology Clinic [address] [place] [address] None Appointment (Seizure-like activity (H) [...] How often do you attend catholic or hindu serv ices? Never 02/28/2024 Do [...] Answer Date Recorded PHQ-2 Score 4 07/16/2024 [facility] [place] of Occupat ional Health - Occupational Stress [...] Legal Sex 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 DIRECTOR OF PROMOTIONS Gender Identity Not on file Sexual Orientation [...] Pt is already a ptof Dr. Maradiaga, senior underwriter unsure if the pt should be scheduled for the Seizure-like activity withMNCEP or continue with Dr. Maradiaga? Please call [facility] at [phone] for scheduling. Action Taken: Message routed to: [facility] Neurology Travel Screening: Not Applicable Date of Service: documented in this encounter Plan of Treatment Upcoming Encounters Date Type Department Care Team (Late st Contact Info) Description 09/25/2024 11:00 AM DIRECTOR OF PROMOTIONS Office Visit [facility] [address] [place] [phone] Denise Woodson APRN IRRIGATOR VALVE PIPE [address] [place], [place] [id number] 09/29/2024 9:00 AM DIRECTOR OF PROMOTIONS Virtual Visit [facility] Neurology Clinic [address] [phone] Randy Maradiaga, [address] [place] [address] 10/09/2024 1:20 PM DIRECTOR OF PROMOTIONS Office Visit [facility] Heart [facility] [address] [facility] [address] [place] [phone] Danna Cardenas PA-C [address] [place], [place] [address] 10/15/2024 11:00 AM DIRECTOR OF PROMOTIONS Office Visit [facility] [address] [place] [phone] Denise Woodson APRN IRRIGATOR VALVE PIPE [address] [place] [address] 10/30/2024 4:00 PM DIRECTOR OF PROMOTIONS Virtual Visit [facility] Vascular Clinic [place] [address] [place] [address] Lisa Zambrano MD [address] [place] [address] 12/29/2024 12:45 PM CDT Office Visit [facility] [address] [place], [place] [address] Explorer [address] [phone] Fabi Coates MD [address] [place] [address] 12/29/2024 1:45 PM CDT Office Visit [facility] [address] [place], [place] [address] [address] [phone] Fabi Coates MD [address] [place] [address] 06/01/2025 11:15 AM CDT Appointment [facility] Imaging [address] [facility] [address] [place] [phone] Robin Zepeda MD [address] [place] [address] 06/04/2025 11:00 AM CDT Office Visit [facility] Neurosurgery [address] 3rd [place] [phone] Robin Zepeda MD [address] [place] [address] Usha Simon APRN [facility] [address] [facility] [id number] [place] [address] documented as of this encounter Goals Goal Patient Goal Type Associated Problems Recent Progress Patient-Stated? Author I would like additional resources and support to manage my health and prevent future avoidable ED visits/hospital admissions Care Plan Increased risk of re-admission 40%( 3:02 PM DIRECTOR OF PROMOTIONS) Anastasia Talamantes, RN Note: Barriers: diagnosis of multiple, chronic, complex medical conditions, provider availability - wait time to complete appointments, etc. Strengths: motivated, engaged in care coordination Patient expressed understanding of goal: yes Action steps to achieve this goal: 1. I will follow up with my providers as scheduled/recommended - Pulmonology: TBD - Mental Health weekly - PT, OT and POWER PRESS SUPERVISOR, continuing through [facility]: - PCP: [...] clinic with 24/7 after hours services available. Electric Freight Car Operator will remain available as needed. documented as of this encounter Visit Diagnoses Not on filedocumented in this encounter Additional Health Concerns Active Problems Noted Date Diagnosed Date Increased risk of re-admission 02/18/2024 Infection Onset Date Last Indicated Resolved Time Rule Out COVID-19 09/13/2024 09/13/2024 09/13/2024 12:31 PM DIRECTOR OF PROMOTIONS Assessment Noted Time PHQ-9 Depression Total Score: 5 03/17/20 24 9:45 AM CDT documented as of this encounter Care Teams Computer Network And Systems Engineer Relationship Specialty Start Date End Date Winston Villatoro OD [facility] [place] [address] [place] [address] PCP - Ophthalmology Ophthalmology 02/11/13 Denise Woodson APRN IRRIGATOR VALVE PIPE [address] [place] [address] PCP - General Family Practice 09/21/20 Denise Woodson APRN IRRIGATOR VALVE PIPE [address] [place] [address] Assigned PCP 07/17/20 Usha Simon APRN IRRIGATOR VALVE PIPE [address] [place], [place] [address], [place] [address] Nurse Practitioner Neurological Surgery 01/24/24 Dangelo Salinas MD [address] [place] [address] Neurology 01/27/24 Anastasia Stearns, RN Lead Electric Freight Car Operator 02/06/24 Germaine Lopez, W Community Health Worker Primary Care - CC 02/18/24 Joya Lira RPH [address] [place], [place] [id number] Pharmacist Pharmacist 05/25/24 Joya Lira RPH [address] [place], [place] [address] Assigned MTM Pharmacist 06/08/24 Fabi Coates MD [address] [facility] 75 [place] [address] Genetics, Clinical 06/18/24 Robin Zepeda MD [address] [facility] [id number] [address] Assigned Neuroscience Provider 07/08/24 08/07/24 Danna Cardenas PA-C [address] [place] [address] Assigned Heart and Vascular Provider 07/08/24 Felicita Desai RN Lead Electric Freight Car Operator 07/14/24 07/28/24 Arthur Salas [facility] [address] [place] [address] Assigned Behavioral Health Provider 08/08/24 Randy Maradiaga DO [address] [place] [address] Assigned Neuroscience Provider 08/08/24 documented as of this encounter
--- OUTSIDE RECORDS SUMMARY | 2024-09-20 18:09 | XMS_ITS | Encounter Summary ---
Author Organization [facility] Address [address] [place] [address] Care Team Providers Care Elastic Attacher Zigzag Name Role Phone Winston Villatoro OD Unavailable [phone] Denise Woodson APRN HOLTER SCANNING TECHNICIAN Unavailable [phone] Denise Woodson APRN HOLTER SCANNING TECHNICIAN Primary Care Provider Usha Simon APRN HOLTER SCANNING TECHNICIAN Unavailable + [phone] Dangelo Salinas MD Unavailable Anastasia Stearns RN Unavailable [phone] Germaine Lopez CH Unavailable [phone] Lisa Zambrano MD Unavailable + [phone] Raul Hoyos MD Unavailable Joya Lira [facility] Unavailable +[phone] Joya Lira [facility] Unavailable [phone] Fabi Coates MD Unavailable [phone] Robin Catalan MD Unavailable [phone] Danna Cardenas PA-C Unavailable +[phone] Felicita Desai RN Unavailable Unavailab Arthur Rios Unavailable +[phone] Randy Maradiaga DO Unavailable + Encounter Details Date Type Department Care Team (Late st Contact Info) Description 05/24/2024 MyC Medical Advice Se [facility] [address], [address] [place] [address] Rohit Barcenas MD 420 [facility] 295 [place] [address] Social History Tobacco Use Types [...] How often do you attend confucianist or holiness serv ices? 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 Neurology [address] 3rd [place] [address] Randy Maradiaga, [address] [address] 10/09/2024 1:20 PM COMMUNITY DEVELOPMENT DIRECTOR Office Visit [facility] Heart [facility] [address] [facility] [address] [place] [phone] Danna Cardenas PA-C 6405 [place] [address] 10/15/2024 11:00 AM COMMUNITY DEVELOPMENT DIRECTOR Office Visit [facility] [address] [place] [phone] Denise Woodson, BARRERA HOLTER SCANNING TECHNICIAN [address] [place] [address] 10/30/2024 4:00 PM COMMUNITY DEVELOPMENT DIRECTOR Virtual Visit [facility] Vascular [facility] [address] [place] [phone] Lisa Zambrano MD [address] [place] [address] 12/29/2024 12:45 PM CDT Office Visit [facility] Explorer [address] [phone] Fabi Coates MD [address] [address] 12/29/2024 1:45 PM CDT Office Visit [facility] [address] [facility] [address] [phone] Fabi Coates MD [address] [address] 06/01/2025 11:15 AM CDT Appointment [facility] Imaging [address] [place] [phone] Robin Zepeda MD [address] [place] [address] 06/04/2025 11:00 AM CDT Office Visit [facility] Neurosurgery [address]rd [place] [address] Robin Zepeda MD [address] [place] [address] Usha Simon APRN [address] [address] documented as of this encounter Goals Goal Patient Goal Type Associated Problems Recent Progress Patient-Stated? Author I would like additional resources and support to manage my health and prevent future avoidable ED visits/hospital admissions Care Plan Increased risk of re-admission 40%( 4 3:02 PM COMMUNITY DEVELOPMENT DIRECTOR) Anastasia Talamantes, RN Note: Barriers: diagnosis of multiple, chronic, complex medical conditions, provider availability - wait time to complete appointments, etc. Strengths: motivated, engaged in care coordination Patient expressed understanding of goal: yes Action steps to achieve this goal: 1. I will follow up with my providers as scheduled/recommended - Pulmonology: TBD - Mental Health weekly - PT, OT and MIXER PIGMENT, continuing through [facility] [place]: - PCP: 09/18/2024 & 10/15/2024. - Vascular [...] clinic with 24/ after hours services available. Sewer And Drain Technician will remain available as needed. documented as of this encounter Visit Diagnoses Not on filedocumented in this encounter Additional Health Concerns Active Problems Noted Date Diagnosed Date Increased risk of re-admission 02/18/2024 Infection Onset Date Last Indicated Resolved Time Rule Out COVID-19 09/13/2024 09/13/2024 09/13/2024 12:31 PM COMMUNITY DEVELOPMENT DIRECTOR Assessment Noted Time PHQ-9 Depression Total Score: 5 03/17/20 24 9:45 AM CDT documented as of this encounter Care Teams Elastic Attacher Zigzag Relationship Specialty Start Date End Date Winston Villatoro OD [facility] [place] [address] [place] [address] PCP - Ophthalmology Ophthalmology 02/11/13 Denise Woodson APRN HOLTER SCANNING TECHNICIAN [address] [place] [address] PCP - General Family Practice 09/21/20 Denise Woodson APRN HOLTER SCANNING TECHNICIAN [address] [place] [address] Assigned PCP 07/17/20 Usha Simon APRN CNP [address] [address] Nurse Practitioner Neurological Surgery 01/24/24 Dangelo Salinas MD [address] [place] [address] Neurology 01/27/24 Anastasia Stearns, RN Lead Sewer And Drain Technician 02/06/24 Germaine Lopez, W Community Health Worker Primary Care - CC 02/18/24 Lisa Zambrano MD 6405 [facility] [address] [place] [address] Assigned Heart and Vascular Provider 05/08/24 07/07/24 Raul Hooys MD [address] [address] Assigned Neuroscience Provider 05/08/24 07/07/24 Joya Lira RPH [address] [place] [address] Pharmacist Pharmacist 05/25/24 Joya Lira RPH [address] [place] [address] Assigned MTM Pharmacist 06/08/24 Fabi Coates MD [address] [place] [address] 75 [place] [address] Genetics, Clinical 06/18/24 Robin Zepeda MD 909 [facility] VA[address]76[place] [address] Assigned Neuroscience Provider 07/08/24 08/07/24 Danna Cardenas PA-C 6405 [place] [address] Assigned Heart and Vascular Provider 07/08/24 Felicita Desai, RN Lead Sewer And Drain Technician 07/14/24 07/28/24 Arthur Salas [facility] [address] [place] [address] Assigned Behavioral Health Provider 08/08/24 Randy Maradiaga DO 9 [place] [address] Assigned Neuroscience Provider 08/08/24 documented as of this encounter
--- OUTSIDE RECORDS SUMMARY | 2024-09-20 18:09 | XMS_ITS | Encounter Summary ---
Author Organization [facility] Address [address] [place] [address] Care Team Providers Care Warehouse Receiving Supervisor Name Role Phone Winston Villatoro OD Unavailable [phone] Denise Woodson APRN CAMPAIGN MARKETING MANAGER Unavailable [phone] Denise Woodson APRN CAMPAIGN MARKETING MANAGER Primary Care Provider Usha Simon APRN CAMPAIGN MARKETING MANAGER Unavailable + [phone] Dangelo Salinas MD Unavailable Anastasia Stearns RN Unavailable [phone] Germaine Lopez CH Unavailable [phone] Lisa Zambrano MD Unavailable + [phone] Raul Hoyos MD Unavailable Joya Lira [facility] Unavailable [phone] Joya Lira [facility] Unavailable [phone] Fabi Coates MD Unavailable [phone] Robin Catalan MD Unavailable [phone] Danna Cardenas PA-C Unavailable [phone] Felicita Desai RN Unavailable Unavailab Arthur Rios Unavailable +[phone] Randy Maradiaga DO Unavailable + Encounter Details [...] Never 02/28/2024 How often do you attend taoism or uatsdin serv ices? 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 Not on file Not on file Not on file Not on file Not on file Not on file documented as of this encounter Plan of Treatment Upcoming Encounters Date Type Department Care Team (Late st Contact Info) Description 09/25/2024 11:00 AM CALL WORKER Office Visit [facility] [address] [place] [address] Denise Woodson APRN [facility] [address] [place] [address] 09/29/2024 9:00 AM CALL WORKER Virtual Visit [facility] Neurology [facility] 909 [facility] [address] 3rd [place] [phone] Randy Maradiaga, [address] [place] [address] 10/09/2024 1:20 PM CALL WORKER Office Visit [facility] Heart [facility] [address] [facility] [address] [place] [phone] Danna Cardenas PA-C 6405 [place] [address] 10/15/2024 11:00 AM CALL WORKER Office Visit [facility] [address] [place] [phone] Chintan DeniseBARRERA diaz CAMPAIGN MARKETING MANAGER [address] [place] [address] 10/30/2024 4:00 PM CALL WORKER Virtual Visit [facility] Vascular [facility] [place] [address] [place] [phone] Lisa Zambrano MD [address] [place] [address] 12/29/2024 12:45 PM CDT Office Visit [facility] 2450 [facility] [address],[place] [phone] Fabi Coates MD 420 [facility] 75 [place], [place] [address] 12/29/2024 1:45 PM CDT Office Visit [facility] 2450 [facility] Explorer [facility] [address],[place] [phone] Fabi Coates MD 420 [facility] 75 [place] [address] 06/01/2025 11:15 AM CDT Appointment [facility] Imaging [address] [place] [phone] Robin Zepeda MD [address] [place] [address] 06/04/2025 11:00 AM CDT Office Visit [facility] Neurosurgery [address] 3rd [place] [phone] Robin Zepeda MD [address] [place] [address] Usha Simon APRN [address] [address] documented as of this encounter Goals Goal Patient Goal Type Associated Problems Recent Progress Patient-Stated? Author I would like additional resources and support to manage my health and prevent future avoidable ED visits/hospital admissions Care Plan Increased risk of re-admission 40%( 4 3:02 PM CALL WORKER) Anastasia Talamantse, RN Note: Barriers: diagnosis of multiple, chronic, complex medical conditions, provider availability - wait time to complete appointments, etc. Strengths: motivated, engaged in care coordination Patient expressed understanding of goal: yes Action steps to achieve this goal: 1. I will follow up with my providers as scheduled/recommended - Pulmonology: TBD - Mental Health weekly - PT, OT and COATING INSPECTOR, continuing through [facility] [place]: - PCP: 09/18/2024 & 10/15/2024. - Vascular [...] clinic with 24/ after hours services available. Jewelry Finisher will remain available as needed. documented as of this encounter Visit Diagnoses Not on filedocumented in this encounter Additional Health Concerns Active Problems Noted Date Diagnosed Date Increased risk of re-admission 02/18/2024 Infection Onset Date Last Indicated Resolved Time Rule Out COVID-19 09/13/2024 09/13/2024 09/13/2024 12:31 PM CALL WORKER Assessment Noted Time PHQ-9 Depression Total Score: 5 03/17/20 24 9:45 AM CDT documented as of this encounter Care Teams Warehouse Receiving Supervisor Relationship Specialty Start Date End Date Winston Villatoro OD [facility] 701 [facility] [address] [place] [address] PCP - Ophthalmology Ophthalmology 02/11/13 Denise Woodson APRN CAMPAIGN MARKETING MANAGER [address] [place] [address] PCP - General Family Practice 09/21/20 Denise Woodson APRN CAMPAIGN MARKETING MANAGER [address] [place] [address] Assigned PCP 07/17/20 Usha Simon APRN CAMPAIGN MARKETING MANAGER [address] [facility], [place] [address] Nurse Practitioner Neurological Surgery 01/24/24 Dangelo Salinas MD [address] [place] [address] Neurology 01/27/24 Anastasia Stearns, RN Lead Jewelry Finisher 02/06/24 Germaine Lopez, W Community Health Worker Primary Care - CC 02/18/24 Lisa Zambrano MD [address] [facility] [address] [place] [address] Assigned Heart and Vascular Provider 05/08/24 07/07/24 Raul Hoyos MD [address] [place] [address] Assigned Neuroscience Provider 05/08/24 07/07/24 Joya Lira Jole[facility] [address] [place] [address] Pharmacist Pharmacist 05/25/24 Joya Lira [facility] [address] [place] [address] Assigned MTM Pharmacist 06/08/24 Fabi Coates MD [address] [place] [address] 75 [place] [address] Genetics, Clinical 06/18/24 Robin Zepeda MD [address] [place] [address] Assigned Neuroscience Provider 07/08/24 08/07/24 Danna Cardenas PA-C 6405 [place] [address] Assigned Heart and Vascular Provider 07/08/24 Felicita Desai, RN Lead Jewelry Finisher 07/14/24 07/28/24 Arthur Salas, [facility] [address] [place] [address] Assigned Behavioral Health Provider 08/08/24 Randy Maradiaga DO 909 [place] [address] Assigned Neuroscience Provider 08/08/24 documented as of this encounter
--- OUTSIDE RECORDS SUMMARY | 2024-09-20 18:09 | XMS_ITS | Encounter Summary ---
Author Organization [facility] Address [address] [place] [address] Care Team Providers Care Trucking Manager Name Role Phone Winston Villatoro OD Unavailable [phone] Denise Woodson APRN CAREER AND TRANSITION TEACHER Unavailable [phone] Denise Woodson APRN CAREER AND TRANSITION TEACHER Primary Care Provider Usha Simon APRN CAREER AND TRANSITION TEACHER Unavailable + [phone] Dangelo Salinas MD Unavailable Anastasia Stearns RN Unavailable Germaine Lopez CHW Unavailable [phone] Robin Zepeda MD Unavailable Lisa Zambrano MD Unavailable Raul Hoyos MD Unavailable Joya Lira RP Unavailable [phone] Joya Lira RPH Unavailable +[phone] Fabi Coates MD Unavailable [phone] Robin Zepeda MD Unavailable [phone] Danna CardenasC Unavailable [phone] Felicita Desai RN Unavailable Unavailab Arthur Rios Unavailable [phone] Randy Maradiaga DO Unavailable + Reason for Visit * Reason Onset Date Comments Call Back 03/09/2024 Follow up appoin tment Encounter Details Date Type Department Care Team (Late st Contact Info) Description 03/09/2024 Telephone [facility] Neurology Clinic [address] 3rd [place] [address] Raul Hoyos MD [address] [place] [address] [id number] [place] [address] Call Back (Follow up appointment ) Social [...] How often do you attend christianity or confucianism serv ices? 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 Germaine's call back #[phone] or she states may call patient to schedule if appropriate Action Taken: Message routed to: [facility] Neurology Travel Screening: Not Applicable documented in this encounter Plan of Treatment Upcoming Encounters Date Type Department Care Team (Late st Contact Info) Description 09/25/2024 11:00 AM FIRE ENGINE PUMP OPERATOR Office Visit [facility] [address] [place] [phone] Denise Woodson APRN [facility] [address] [place] [address] 09/29/2024 9:00 AM FIRE ENGINE PUMP OPERATOR Virtual Visit [facility] Neurology Clinic [address] [address] Randy Maradiaga DO [address] [place] [address] 10/09/2024 1:20 PM FIRE ENGINE PUMP OPERATOR Office Visit [facility] Heart [facility] [place] [address] [facility] [address] [place] [phone] Danna Cardenas PA-C [address] [facility] [place] [facility] [place] [address] 10/15/2024 11:00 AM FIRE ENGINE PUMP OPERATOR [facility] [address] [place] [phone] Chintan Denise, BARRERA CAREER AND TRANSITION TEACHER [address] [place], [place] 2273[address] 10/30/2024 4:00 PM FIRE ENGINE PUMP OPERATOR Virtual Visit [facility] Vascular Clinic [place] [address] [place] [phone] Lisa Zambrano MD [address] [place] [address] 12/29/2024 12:45 PM CDT Office Visit [facility] Pediatric Specialty Clinic [address] [place], [place] [address]e Explorer [address] [phone] Fabi Coates MD [address] [place] [address] 328535 12/29/2024 1:45 PM CDT Office Visit [facility]ty Clinic [address] [place], [place] [address] Explorer [address] [phone] Fabi Coates MD [address] [place] [address] 06/01/2025 11:15 AM CDT Appointment [facility] Imaging [address] [facility] [address] [place] [address] Robin Zepeda MD [address] [place] [address] 06/04/2025 11:00 AM CDT Office Visit [facility] Neurosurgery [address] 3rd [place] [address] Robin Zepeda MD [address] [place] [address] Usha Simon APRN CNP [address] [place] [address] 329735 documented as of this encounter Goals Goal Patient Goal Type Associated Problems Recent Progress Patient-Stated? Author I would like additional resources and support to manage my health and prevent future avoidable ED visits/hospital admissions Care Plan Increased risk of re-admission 40%( 4 3:02 PM FIRE ENGINE PUMP OPERATOR) Anastasia Talamantes, RN Note: Barriers: diagnosis of multiple, chronic, complex medical conditions, provider availability - wait time to complete appointments, etc. Strengths: motivated, engaged in care coordination Patient expressed understanding of goal: yes Action steps to achieve this goal: 1. I will follow up with my providers as scheduled/recommended - Pulmonology: TBD - Mental Health weekly - PT, OT and ZINC ETCHER, continuing through [facility] [place]: - PCP: 09/18/2024 & 10/15/2024. - Vascular [...] clinic with 24/7 after hours services available. Under Cutting Machine Operator will remain available as needed. documented as of this encounter Visit Diagnoses Not on filedocumented in this encounter Additional Health Concerns Active Problems Noted Date Diagnosed Date Increased risk of re-admission 02/18/2024 Infection Onset Date Last Indicated Resolved Time Rule Out COVID-19 09/13/2024 09/13/2024 09/13/2024 12:31 PM FIRE ENGINE PUMP OPERATOR Assessment Noted Time PHQ-9 Depression Total Score: 16 024 3:27 PM CDT documented as of this encounter Care Teams Trucking Manager Relationship Specialty Start Date End Date Winston Villatoro OD [facility] [address] [facility] [address] [place] [address] PCP - Ophthalmology Ophthalmology 02/11/13 Denise Woodson APRN CAREER AND TRANSITION TEACHER [address] [facility] [place] [address] PCP - General Family Practice 09/21/20 Denise Woodson APRN CAREER AND TRANSITION TEACHER [address] [place] [address] Assigned PCP 07/17/20 Usha Simon APRN CAREER AND TRANSITION TEACHER 909 [facility]121[place], [place] [address] Nurse Practitioner Neurological Surgery 01/24/24 Dangelo Salinas MD [address] [place], [place] [phone] Neurology 01/27/24 Anastasia Stearns, RN Lead Under Cutting Machine Operator 02/06/24 [facility] Work[facility] Primary Care - CC 02/18/24 Robin Zepeda MD [address] [place] [address] Assigned Neuroscience Provider 03/08/24 05/07/24 Lisa Zambrano MD 6405 [facility] [place] [address] Assigned Heart and Vascular Provider 05/08/24 07/07/24 Raul Hoyos MD [address] [place] [address] Assigned Neuroscience Provider 05/08/24 07/07/24 Joya Lira [facility] [address] [place] [address] Pharmacist Pharmacist 05/25/24 Joya Lira [facility] [address] [place] [address] Assigned MTM Pharmacist 06/08/24 Fabi Coates MD [address] [place] [address] 75 [place] [address] Genetics, Clinical 06/18/24 Robin Zepeda MD [address] [place] [address] Assigned Neuroscience Provider 07/08/24 08/07/24 Danna Cardenas PA-C [address]405 [place] [address] Assigned Heart and Vascular Provider 07/08/24 Felicita Desai, RN Lead Under Cutting Machine Operator 07/14/24 07/28/24 Arthur Salas, [facility] [address] [address] Assigned Behavioral Health Provider 08/08/24 Randy Maradiaga DO [address] [place] [address] 630665 Assigned Neuroscience Provider 08/08/24 documented as of this encounter
--- OUTSIDE RECORDS SUMMARY | 2024-09-20 18:09 | XMS_ITS | Encounter Summary ---
Author Organization [place] Address [address] [place] [address] Care Team Providers Care Licensed Practical Nurse Clinic Nurse Name Role Phone Winston Villatoro OD Unavailable [phone] Denise Woodson APRN DOORKEEPER Unavailable [phone] Denise Woodson APRN DOORKEEPER Primary Care Provider Usha Simon APRN DOORKEEPER Unavailable + [phone] Dangelo Salinas MD Unavailable Anastasia Stearns RN Unavailable [phone] Germaine Lopez CHW Unavailable [phone] Robin Zepeda MD Unavailable Lisa Zambrano MD Unavailable Raul Hoyos MD Unavailable Joya Lira RP Unavailable Joya Lira RPH Unavailable Fabi Coates MD Unavailable [phone] Robin Zepeda MD Unavailable [phone] Danna CardenasC Unavailable +[phone] Felicita Desai RN Unavailable Unavailab Arthur Rios Unavailable +[phone] Randy Maradiaga DO Unavailable + Encounter Details Date Type Department Care Team (Late st Contact Info) Description 03/16/2024 Ajay Medical Advice [facility] Neurology Clinic [address] [place] [phone] Ora Bazan Social History Tobacco Use Types [...] How often do you attend evangelical or oriental orthodox serv ices? 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 Not on file Not on file Not on file Not on file Not on file Not on file documented as of this encounter Plan of Treatment Upcoming Encounters Date Type Department Care Team (Late st Contact Info) Description 09/25/2024 11:00 AM FIREWOOD CUTTER Office Visit [facility] [address] [place] [phone] Denise Woodson APRN DOORKEEPER [address] [facility] [place] [id number] 09/29/2024 9:00 AM FIREWOOD CUTTER Virtual Visit [facility] Neurology [address] 3rd [place] [phone] Randy Maradiaga, [address] [address] 10/09/2024 1:20 PM FIREWOOD CUTTER Office Visit [facility] Heart [facility] [address] [facility] [address] [place] [phone] Danna Cardenas PA-C 6405 [place] [address] 10/15/2024 11:00 AM FIREWOOD CUTTER Office Visit [facility] [address] [facility] [place] [phone] Denise Woodson APRN DOORKEEPER [address] [address] [place] 9417068 10/30/2024 4:00 PM FIREWOOD CUTTER Virtual Visit [facility] Vascular [facility] [address] [place] [phone] Lisa Zambrano MD [address] [place] [id number] 12/29/2024 12:45 PM CDT Office Visit [facility] [address] [facility] 12th Flr,[place] [phone] Fabi Coates MD 420 [facility] 75 [place] [address] 12/29/2024 1:45 PM CDT Office Visit [facility] 2450 [facility] 12th Fl[address],[place] [phone] Fabi Coates MD [address] [address] 06/01/2025 11:15 AM CDT Appointment [facility] Imaging [address] [place] [phone] Robin Zepeda MD [address] [place] [address] 4318[address] 06/04/2025 11:00 AM CDT Office Visit [facility] Neurosurgery [facility] [place] [address] [place] [address] 3rd [place] [phone] Robin Zepeda MD [address] [place] [address] Usha Simon APRN DOORKEEPER [address] [place] [address] 175725 documented as of this encounter Goals Goal Patient Goal Type Associated Problems Recent Progress Patient-Stated? Author I would like additional resources and support to manage my health and prevent future avoidable ED visits/hospital admissions Care Plan Increased risk of re-admission 40%( 4 3:02 PM FIREWOOD CUTTER) Anastasia Talamantes, RN Note: Barriers: diagnosis of multiple, chronic, complex medical conditions, provider availability - wait time to complete appointments, etc. Strengths: motivated, engaged in care coordination Patient expressed understanding of goal: yes Action steps to achieve this goal: 1. I will follow up with my providers as scheduled/recommended - Pulmonology: TBD - Mental Health weekly - PT, OT and BUYER LIAISON, continuing through [facility] [place]: - PCP: 09/18/2024 & 10/15/2024. - Vascular [...] clinic with 24/7 after hours services available. Strategy Analyst will remain available as needed. documented as of this encounter Visit Diagnoses Not on filedocumented in this encounter Additional Health Concerns Active Problems Noted Date Diagnosed Date Increased risk of re-admission 02/18/2024 Infection Onset Date Last Indicated Resolved Time Rule Out COVID-19 09/13/2024 09/13/2024 09/13/2024 12:31 PM FIREWOOD CUTTER Assessment Noted Time PHQ-9 Depression Total Score: 16 024 3:27 PM CDT documented as of this encounter Care Teams Licensed Practical Nurse Clinic Nurse Relationship Specialty Start Date End Date Winston Villatoro OD [facility] [address] [place] [address] PCP - Ophthalmology Ophthalmology 02/11/13 Denise Woodson APRN DOORKEEPER [address] [address] [address] PCP - General Family Practice 09/21/20 Denise Woodson APRN DOORKEEPER [address] [address] [address] Assigned PCP 07/17/20 Usha Simon APRN DOORKEEPER [address] [address] Nurse Practitioner Neurological Surgery 01/24/24 Dangelo Salinas MD [address] [place], [place] [phone] Neurology 01/27/24 Anastasia Stearns, RN Lead Strategy Analyst 02/06/24 Germaine Lopez, W Community Health Worker Primary Care - CC 02/18/24 Robin Zepeda MD [address] [address] Assigned Neuroscience Provider 03/08/24 05/07/24 Lisa Zambrano MD [address] [place] [address] Assigned Heart and Vascular Provider 05/08/24 07/07/24 Raul Hoyos MD [address] [address] Assigned Neuroscience Provider 05/08/24 07/07/24 Joya Lira RPH [address] [address] Pharmacist Pharmacist 05/25/24 Joya Lira RPH [address] [place] [address] Assigned MTM Pharmacist 06/08/24 Fabi Coates MD [address] [place] [address] 75 [place] [address] Genetics, Clinical 06/18/24 Robin Zepeda MD 9 [facility] [place] [id number] [address] Assigned Neuroscience Provider 07/08/24 08/07/24 Danna Cardenas PA-C 6405 [place] [address] Assigned Heart and Vascular Provider 07/08/24 Felicita Desai, RN Lead Strategy Analyst 07/14/24 07/28/24 Arthur Salas, [facility] [address] [place] [address] Assigned Behavioral Health Provider 08/08/24 Randy Maradiaga DO [address] [place] [address] Assigned Neuroscience Provider 08/08/24 documented as of this encounter
--- OUTSIDE RECORDS SUMMARY | 2024-09-20 18:09 | XMS_ITS | Encounter Summary ---
Author Organization [place] Address [address] [place] [address] Care Team Providers Care Chainstitch Sewing Machine Operator Name Role Phone Winston Villatoro OD Unavailable [phone] Denise Woodson APRN LOOM CHECKER Unavailable [phone] Denise Woodson APRN LOOM CHECKER Primary Care Provider Usha Simon APRN LOOM CHECKER Unavailable + [phone] Dangelo Salinas MD Unavailable Anastasia Stearns RN Unavailable +[phone] Germaine Lopez CH Unavailable [phone] Lisa Zambrano MD Unavailable + [phone] Raul Hoyos MD Unavailable Joya Lira [facility] Unavailable [phone] Joya Lira [facility] Unavailable [phone] Fabi Coates MD Unavailable [phone] Robin Catalan MD Unavailable [phone] Danna Cardenas PA-C Unavailable +[phone] Felicita Desai RN Unavailable Unavailab Arthur Rios Unavailable +[phone] Randy Maradiaga DO Unavailable + Encounter Details Date Type Department Care Team (Late st Contact Info) Description 05/25/2024 MyC Medical Advice [facility] Neurology Clinic [address] 3rd [place] [address] Raul Hoyos MD [address] [place] [address] [id number] [place] [address] Social History Tobacco Use Types Packs/Day Years [...] often do you attend jehovah's witness or hinduism serv ices? 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 Not on file Not on file Not on file Not on file Not on file Not on file documented as of this encounter Plan of Treatment Upcoming Encounters Date Type Department Care Team (Late st Contact Info) Description 09/25/2024 11:00 AM POINTING MACHINE OPERATOR Office Visit [facility] [address] [place] [phone] Denise Woodson, BARRERA LOOM CHECKER [address] [place], [place] [phone] 09/29/2024 9:00 AM POINTING MACHINE OPERATOR Virtual Visit [facility] Neurology [address] 3rd [place] [phone] Randy Maradiaga, [address] 385565 10/09/2024 1:20 PM POINTING MACHINE OPERATOR Office Visit [facility] Heart [facility] 6405 [facility] [address] [place] [phone] Danna Cardenas PA-C 6405 [place], [place] 6[address] 10/15/2024 11:00 AM POINTING MACHINE OPERATOR Office Visit [facility] [address] [place] [phone] Denise Woodson APRN LOOM CHECKER [address] [place], [place] 6[address]1568 10/30/2024 4:00 PM POINTING MACHINE OPERATOR Virtual Visit [facility] Vascular [facility] [address] [place] [phone] Lisa Zambrano MD [address] [place] [address] 12/29/2024 12:45 PM CDT Office Visit [facility] [address] [place] [phone] Fabi Coates MD [address] [place] [address] 12/29/2024 1:45 PM CDT Office Visit [facility] [address] [place] [phone] Fabi Coates MD [address] [place] [address] 06/01/2025 11:15 AM CDT Appointment [facility] Imaging [address] [place] [address] Robin Zepeda MD [address] [place] [address] 06/04/2025 11:00 AM CDT Office Visit [facility] Neurosurgery [address] [phone] Robin Zepeda MD [address] [place] [address]405 Usha Simon APRN [address] [address] documented as of this encounter Goals Goal Patient Goal Type Associated Problems Recent Progress Patient-Stated? Author I would like additional resources and support to manage my health and prevent future avoidable ED visits/hospital admissions Care Plan Increased risk of re-admission 40%( 4 3:02 PM POINTING MACHINE OPERATOR) Anastasia Talamantes, RN Note: Barriers: diagnosis of multiple, chronic, complex medical conditions, provider availability - wait time to complete appointments, etc. Strengths: motivated, engaged in care coordination Patient expressed understanding of goal: yes Action steps to achieve this goal: 1. I will follow up with my providers as scheduled/recommended - Pulmonology: TBD - Mental Health weekly - PT, OT and GRANTS SPECIALIST, continuing through [facility] [place]: - PCP: 09/18/2024 & 10/15/2024. - Vascular [...] clinic with 24/ after hours services available. Mat Machine Operator will remain available as needed. documented as of this encounter Visit Diagnoses Not on filedocumented in this encounter Additional Health Concerns Active Problems Noted Date Diagnosed Date Increased risk of re-admission 02/18/2024 Infection Onset Date Last Indicated Resolved Time Rule Out COVID-19 09/13/2024 09/13/2024 09/13/2024 12:31 PM POINTING MACHINE OPERATOR Assessment Noted Time PHQ-9 Depression Total Score: 5 03/17/20 24 9:45 AM CDT documented as of this encounter Care Teams Chainstitch Sewing Machine Operator Relationship Specialty Start Date End Date Winston Villatoro, [facility] [place] [address] [place] [address] PCP - Ophthalmology Ophthalmology 02/11/13 Denise Woodson APRN LOOM CHECKER [address] [address] [address] PCP - General Family Practice 09/21/20 Denise Woodson APRN LOOM CHECKER [address] [place] [address] Assigned PCP 07/17/20 Usha Simon APRN LOOM CHECKER [address] [address] Nurse Practitioner Neurological Surgery 01/24/24 Dangelo Salinas MD [address] [place] [address] Neurology 01/27/24 Anastasia Stearns, RN Lead Mat Machine Operator 02/06/24 Germaine Lopez, W Community Health Worker Primary Care - CC 02/18/24 Lisa Zambrano MD [address] [facility] [address] [place] [address] Assigned Heart and Vascular Provider 05/08/24 07/07/24 Raul Hoyos MD [address] [address] Assigned Neuroscience Provider 05/08/24 07/07/24 Joya Lira RPH [address] [place] [address] Pharmacist Pharmacist 05/25/24 Joya Lira RPH [address] [place] [address] Assigned MTM Pharmacist 06/08/24 Fabi Coates MD [address] [place] [address] [facility] 75 [place] [address] Genetics, Clinical 06/18/24 Robin Zepeda MD 909 [facility] [id number] [place] [address] Assigned Neuroscience Provider 07/08/24 08/07/24 Danna Cardenas PA-C 6405 [place] [address] Assigned Heart and Vascular Provider 07/08/24 Felicita Desai, RN Lead Mat Machine Operator 07/14/24 07/28/24 Arthur Salas [facility] [address] [place] [address] Assigned Behavioral Health Provider 08/08/24 Randy Maradiaga DO [address] [place] [address] [id number] Assigned Neuroscience Provider 08/08/24 documented as of this encounter
--- OUTSIDE RECORDS SUMMARY | 2024-09-20 18:09 | XMS_ITS | Encounter Summary ---
Author Organization [place] Address [address] [place] [address] Care Team Providers Care Tree Puller Name Role Phone Winston Villatoro OD Unavailable +[phone] Denise Woodson APRN VACATION GUIDE Unavailable [phone] Denise Woodson APRN VACATION GUIDE Primary Care Provider Usha Simon APRN VACATION GUIDE Unavailable + [phone] Dangelo Salinas MD Unavailable Anastasia Stearns RN Unavailable [phone] Germaine Lopez CH Unavailable [phone] Lisa Zambrano MD Unavailable + [phone] Raul Hoyos MD Unavailable Joya Lira [facility] Unavailable [phone] Joya Lira [facility] Unavailable +[phone] Fabi Coates MD Unavailable [phone] Robin Catalan MD Unavailable [phone] Danna Cardenas PA-C Unavailable +[phone] Felicita Desai RN Unavailable Unavailab Arthur Rios Unavailable +[phone] Randy Maradiaga DO Unavailable + Encounter Details [...] How often do you attend denominational or lutheran serv ices? Never 02/28/2024 Do you belong [...] PHQ-2 Score 2 05/05/2024 [facility] of Occupat ional Health - Occupational [...] on file Legal Sex 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 RN OBSERVATION Gender Identity Not on file Sexual Orientation [...] st Contact Info) Description 09/25/2024 11:00 AM RN OBSERVATION Office Visit [facility] [address] [place] [address] Denise Woodson APRN [facility] [address] [place] [address] 09/29/2024 9:00 AM RN OBSERVATION Virtual Visit [facility] Neurology [facility] [address] [facility] [address] 3rd [place] [phone] Randy Maradiaga, [address] [place] [address] 10/09/2024 1:20 PM RN OBSERVATION Office Visit [facility] Heart [facility] 6405 [facility] [address] [place] [phone] Danna Cardenas PA-C 6405 [place] [address] 10/15/2024 11:00 AM RN OBSERVATION Office Visit [facility] [address] [place] [phone] Chintan DeniseBARRERA diaz VACATION GUIDE [address] [place] [address] 10/30/2024 4:00 PM RN OBSERVATION Virtual Visit [facility] Vascular Clinic [place] [address] [place] [phone] Lisa Zambrano MD [address] [place] [address] 12/29/2024 12:45 PM CDT Office Visit [facility] 2450 [facility] [address],[place] [phone] Fabi Coates MD [address] [facility] 75 [place], [place] [address] 12/29/2024 1:45 PM CDT Office Visit [facility] 2450 [facility] Explorer [facility] 12th Fl[address],[place] [phone] Fabi Coates MD [address] [facility] 75 [place] [address] 06/01/2025 11:15 AM CDT Appointment [facility] Imaging [address] [place] [place] [phone] Robin Zepeda MD [address] [place] [address] 06/04/2025 11:00 AM CDT Office Visit [facility] Neurosurgery [address] 3rd [place] [phone] Robin Zepeda MD [address] [place] [address] Usha Simon APRN [address] [address] documented as of this encounter Goals Goal Patient Goal Type Associated Problems Recent Progress Patient-Stated? Author I would like additional resources and support to manage my health and prevent future avoidable ED visits/hospital admissions Care Plan Increased risk of re-admission 40%( 4 3:02 PM RN OBSERVATION) Anastasia Talamantes, RN Note: Barriers: diagnosis of multiple, chronic, complex medical conditions, provider availability - wait time to complete appointments, etc. Strengths: motivated, engaged in care coordination Patient expressed understanding of goal: yes Action steps to achieve this goal: 1. I will follow up with my providers as scheduled/recommended - Pulmonology: TBD - Mental Health weekly - PT, OT and CLEANER WALL, continuing through [facility] [place]: - PCP: 09/18/2024 & 10/15/2024. - Vascular [...] clinic with 24/ after hours services available. Internal Sales Engineer will remain available as needed. documented as of this encounter Visit Diagnoses Not on filedocumented in this encounter Additional Health Concerns Active Problems Noted Date Diagnosed Date Increased risk of re-admission 02/18/2024 Infection Onset Date Last Indicated Resolved Time Rule Out COVID-19 09/13/2024 09/13/2024 09/13/2024 12:31 PM RN OBSERVATION Assessment Noted Time PHQ-9 Depression Total Score: 5 03/17/20 24 9:45 AM CDT documented as of this encounter Care Teams Tree Puller Relationship Specialty Start Date End Date Winston Villatoro OD [facility] [address] [facility] [address] [place] [address] PCP - Ophthalmology Ophthalmology 02/11/13 Denise Woodson APRN VACATION GUIDE [address] [place] [address] PCP - General Family Practice 09/21/20 Denise Woodson APRN VACATION GUIDE [address] [place] [address] Assigned PCP 07/17/20 Usha Simon APRN VACATION GUIDE 909 [facility], [place] [address] Nurse Practitioner Neurological Surgery 01/24/24 Dangelo Salinas MD [address] [place] [address] Neurology 01/27/24 Anastasia Stearns, RN Lead Internal Sales Engineer 02/06/24 Germaine Lopez, W Community Health Worker Primary Care - CC 02/18/24 Lisa Zambrano MD 6405 [facility] [address] [place] [address] Assigned Heart and Vascular Provider 05/08/24 07/07/24 Raul Hoyos MD [address] [place] [address] Assigned Neuroscience Provider 05/08/24 07/07/24 Joya Lira Joleen [address] [place] [address] Pharmacist Pharmacist 05/25/24 Joya Lira [facility] [address] [place] [address] Assigned MTM Pharmacist 06/08/24 Fabi Coates MD [address] [place] [address] 75 [place] [address] Genetics, Clinical 06/18/24 Robin Zepeda MD [address] [place] [address] Assigned Neuroscience Provider 07/08/24 08/07/24 Danna Cardenas PA-C 6405 [place] [address] Assigned Heart and Vascular Provider 07/08/24 Felicita Desai, RN Lead Internal Sales Engineer 07/14/24 07/28/24 Arthur Salas, [facility] [address] [place] [address] Assigned Behavioral Health Provider 08/08/24 Randy Maradiaga DO 909 [place] [address] Assigned Neuroscience Provider 08/08/24 documented as of this encounter
--- OUTSIDE RECORDS SUMMARY | 2024-09-20 18:09 | XMS_ITS | Encounter Summary ---
Author Organization [facility] Address [address] [place] [address] Care Team Providers Care Baccarat Dealer Name Role Phone Winston Villatoro OD Unavailable [phone] Denise Woodson APRN NURSING EDUCATION CONSULTANT Unavailable [phone] Denise Woodson APRN NURSING EDUCATION CONSULTANT Primary Care Provider Usha Simon APRN NURSING EDUCATION CONSULTANT Unavailable + [phone] Dangelo Salinas MD Unavailable Anastasia Stearns RN Unavailable Germaine Lopez CH Unavailable +[phone] Lisa Zambrano MD Unavailable + [phone] Raul Hoyos MD Unavailable Joya Lira [facility] Unavailable [phone] Joya Lira [facility] Unavailable +[phone] Fabi Coates MD Unavailable [phone] Robin Catalan MD Unavailable +[phone] Danna Cardenas PA-C Unavailable +[phone] Felicita Desai RN Unavailable Unavailab Arthur Rios Unavailable +[phone] Randy Maradiaga DO Unavailable + Reason for Visit * Reason Onset Date Comments Symptoms 05/12/2024 Stroke symptoms per pt Encounter Details Date Type Department Care Team (Late st Contact Info) Description 05/12/2024 Telephone [facility] [address] 3rd [place] [address] Raul Hoyos MD [address] [place] [address] QC5872IR [place] [address] Symptoms (Stroke symptoms per pt ) Social [...] How often do you attend adventist or islam serv ices? 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 Not on file Not [...] states she was at the ED at [facility] on Saturday05/08/24 and they also did an [...] Daisy Day - 05/12/2024 10:18 AM CDT [facility] Phone Message May a detailed [...] Info) Description 09/25/2024 11:00 AM DIRECTOR OF RELIGIOUS ACTIVITIES Office Visit [facility] [address] [place] [address] Denise Woodson APRN [facility] [address] [place], [place] [address] 09/29/2024 9:00 AM DIRECTOR OF RELIGIOUS ACTIVITIES Virtual Visit [facility] [address] 3rd [place] [phone] Randy Maradiaga, [address] [place] [address] 743045 10/09/2024 1:20 PM DIRECTOR OF RELIGIOUS ACTIVITIES Office Visit [facility] 6405 [facility] [address] [place] [phone] Danna Cardenas PA-C 6405 [place] [address] 10/15/2024 11:00 AM DIRECTOR OF RELIGIOUS ACTIVITIES Office Visit [facility] [address] [facility] [place] [phone] Denise Woodson APRN CNP [address]49 [facility] [place] [address] 10/30/2024 4:00 PM DIRECTOR OF RELIGIOUS ACTIVITIES Virtual Visit [facility] [place] [address] [place] [phone] Lisa Zambrano MD [address] [place] [address] 12/29/2024 12:45 PM CDT Office Visit [facility] [address] [place] [phone] Fabi Coates MD [address] [place] [address] 12/29/2024 1:45 PM CDT Office Visit [facility] [address] [place] [phone] Fabi Coates MD [address] [place] [address] 06/01/2025 11:15 AM CDT Appointment [facility] [address] [place] [address] Robin Zepeda MD 909 [facility]2121[place] [place] [address] 06/04/2025 11:00 AM CDT Office Visit [facility] [address] [place] [address] Robin Zepeda MD [address] [place] [address] [address] Usha Simon APRN NURSING EDUCATION CONSULTANT [address] [place] [address] documented as of this encounter Goals Goal Patient Goal Type Associated Problems Recent Progress Patient-Stated? Author I would like additional resources and support to manage my health and prevent future avoidable ED visits/hospital admissions Care Plan Increased risk of re-admission 40%( 4 3:02 PM DIRECTOR OF RELIGIOUS ACTIVITIES) Anastasia Talamantes, RN Note: Barriers: diagnosis of multiple, chronic, complex medical conditions, provider availability - wait time to complete appointments, etc. Strengths: motivated, engaged in care coordination Patient expressed understanding of goal: yes Action steps to achieve this goal: 1. I will follow up with my providers as scheduled/recommended - Pulmonology: TBD - Mental Health weekly - PT, OT and TILE HELPER, continuing through [facility] [place]: - PCP: 09/18/2024 & 10/15/2024. - Vascular [...] clinic with 24/7 after hours services available. Gamma Operator will remain available as needed. documented as of this encounter Visit Diagnoses Not on filedocumented in this encounter Additional Health Concerns Active Problems Noted Date Diagnosed Date Increased risk of re-admission 02/18/2024 Infection Onset Date Last Indicated Resolved Time Rule Out COVID-19 09/13/2024 09/13/2024 09/13/2024 12:31 PM DIRECTOR OF RELIGIOUS ACTIVITIES Assessment Noted Time PHQ-9 Depression Total Score: 5 03/17/20 24 9:45 AM CDT documented as of this encounter Care Teams Baccarat Dealer Relationship Specialty Start Date End Date Winston VillatoroAMELIE [facility] [place] [address] [place] [address] PCP - Ophthalmology Ophthalmology 02/11/13 Denise Woodson APRN NURSING EDUCATION CONSULTANT [address] [place] [address] PCP - General Family Practice 09/21/20 Denise Woodson APRN NURSING EDUCATION CONSULTANT [address] [place] [address] Assigned PCP 07/17/20 Usha Simon APRN NURSING EDUCATION CONSULTANT 909 [facility]2121[place], [place] 4[address]75 Nurse Practitioner Neurological Surgery 01/24/24 Dangelo Salinas MD [address] [facility] [address] [place] [address] Neurology 01/27/24 Anastasia Stearns, RN Lead Gamma Operator 02/06/24 Germaine Lopez, W Community Health Worker Primary Care - CC 02/18/24 Lisa Zambrano MD [address] [place] [address] Assigned Heart and Vascular Provider 05/08/24 07/07/24 Raul Hoyos MD 909 [facility]2121[place] [address] Assigned Neuroscience Provider 05/08/24 07/07/24 Joya Lira [facility] [address] [place] [address] Pharmacist Pharmacist 05/25/24 Joya Lira Joleen [address] [place] [address] Assigned MTM Pharmacist 06/08/24 Fabi Coates MD [address] [place] [address] 75 [place] [address] Genetics, Clinical 06/18/24 Robin Zepeda MD 909 [facility]2121[place] [address] Assigned Neuroscience Provider 07/08/24 08/07/24 Danna Cardenas PA-C 6405 [place] [address] Assigned Heart and Vascular Provider 07/08/24 Felicita Desai, RN Lead Gamma Operator 07/14/24 07/28/24 Arthur Salas [facility] [address] [place] [address] Assigned Behavioral Health Provider 08/08/24 Randy Maradiaga DO 909 [place] [address] Assigned Neuroscience Provider 08/08/24 documented as of this encounter
--- OUTSIDE RECORDS SUMMARY | 2024-09-20 18:09 | XMS_ITS | Encounter Summary ---
Author Organization [facility] Address [address] [place] [address] Care Team Providers Care Line Runner Name Role Phone Winston Villatoro OD Unavailable [phone] Denise Woodson APRN [employer]D RA[employer]ER Unavailable [phone] Denise Woodson APRN FUND RAISER Primary Care Provider Usha Simon APRN [employer] RA[employer]ER Unavailable + [phone] Dangelo Salinas MD Unavailable Anastasia Stearns RN Unavailable [phone] Germaine Lopez CH Unavailable [phone] Lisa Zambrano MD Unavailable + [phone] Raul Hoyos MD Unavailable Joya Lira [facility] Unavailable [phone] Joya Lira [facility] Unavailable [phone] Fabi Coates MD Unavailable [phone] Robin Catalan MD Unavailable [phone] Danna Cardenas PA-C Unavailable [phone] Felicita Desai RN Unavailable Unavailab Arthur Rios Unavailable +[phone] Randy Maradiaga DO Unavailable + Encounter Details Date Type Department Care Team (Late st Contact Info) Description 05/12/2024 Telephone [facility] [address] [place] [address] Denise Woodson APRN [facility] [address] [facility] [address] Social History Tobacco Use Types [...] How often do you attend taoist or advent serv ices? 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 Forms was placed in the provider basket for review and sign. Anastasia Velasquez Service Counter Cashier [facility] * Telephone Encounter - Anastasia Abad - 05/20/2024 11:01 AM CDT Kaleb with [employer] calling to inquire if short term disability forms were received. Will Re-send the Forms. Forms were not in the provider's basket, nor was there an encounter statingthe provider received/signed the form. Anastasia Velasquez Service Counter Cashier [facility] * Telephone Encounter - Donald Newman - 05/12/2024 4:28 PM CDT Forms/Letter Request Type of form/letter: OTHER: FORMS from ([employer]) Do we have the form/letter: Yes: In the Dr's in basket at front office associate Who is the form from? [employer] Where did/will the form come from? form was faxed in When is form/letter needed by: FIFI How would you like the form/letter returned: Patient Notified form requests are processed in 5-7 business days:No Could we send this information to you in [facility] or would you prefer to receive a phone call?: No preference Okay to leave a detailed message?: No at Other phone number: FAX: [phone] documented in this encounter Plan of Treatment Upcoming Encounters Date Type Department Care Team (Late st Contact Info) Description 09/25/2024 11:00 AM DOOR TO DOOR SELLING DISTRIBUTOR Office Visit [facility] [address] [place] [phone] Denise Woodson APRN [facility] [address] [place] [address] 09/29/2024 9:00 AM DOOR TO DOOR SELLING DISTRIBUTOR Virtual Visit [facility] Neurology [facility] [address] [facility] [address] 3rd [place] [phone] Randy Maradiaga, [address] [place] [address] 10/09/2024 1:20 PM DOOR TO DOOR SELLING DISTRIBUTOR Office Visit [facility] 6405 [facility] [address] [place] [phone] Danna Cardenas PA-C 6405 [place] [address] 10/15/2024 11:00 AM DOOR TO DOOR SELLING DISTRIBUTOR Office Visit [facility] [address] [place] [address] Denise Woodson APRN [employer] [address] [place] [address] 10/30/2024 4:00 PM DOOR TO DOOR SELLING DISTRIBUTOR Virtual Visit [facility] [place] [address] [place] [phone] Lisa Zambrano MD [address] [place] [address] 12/29/2024 12:45 PM CDT Office Visit [facility] [address] [facility] [address],[place] [address] Fabi Coates MD 420 [facility] 75 [place], [place] [address] 12/29/2024 1:45 PM CDT Office Visit [facility] 2450 [facility] Explorer [facility] 12[address],[place] [phone] Fabi Coates MD [address] [place] [facility] 75 [place] [address] 06/01/2025 11:15 AM CDT Appointment [facility] [address] [place] [phone] Robin Zepeda MD [address] [place] [address] 9[address] 06/04/2025 11:00 AM CDT Office Visit [facility] Neurosurgery [address] 3rd [place] [phone] Robin Zepeda MD [address] [place] [address] Usha Simon APRN [address] [address] documented as of this encounter Goals Goal Patient Goal Type Associated Problems Recent Progress Patient-Stated? Author I would like additional resources and support to manage my health and prevent future avoidable ED visits/hospital admissions Care Plan Increased risk of re-admission 40%( 4 3:02 PM DOOR TO DOOR SELLING DISTRIBUTOR) Anastasia Talamantes, RN Note: Barriers: diagnosis of multiple, chronic, complex medical conditions, provider availability - wait time to complete appointments, etc. Strengths: motivated, engaged in care coordination Patient expressed understanding of goal: yes Action steps to achieve this goal: 1. I will follow up with my providers as scheduled/recommended - Pulmonology: TBD - Mental Health weekly - PT, OT and SET MAKING MACHINE OPERATOR, continuing through [facility] [place]: - PCP: 09/18/2024 & 10/15/2024. - Vascular [...] clinic with 24/ after hours services available. Oracle Bpm Consultant will remain available as needed. documented as of this encounter Visit Diagnoses Not on filedocumented in this encounter Additional Health Concerns Active Problems Noted Date Diagnosed Date Increased risk of re-admission 02/18/2024 Infection Onset Date Last Indicated Resolved Time Rule Out COVID-19 09/13/2024 09/13/2024 09/13/2024 12:31 PM DOOR TO DOOR SELLING DISTRIBUTOR Assessment Noted Time PHQ-9 Depression Total Score: 5 03/17/20 24 9:45 AM CDT documented as of this encounter Care Teams Line Runner Relationship Specialty Start Date End Date Winston Villatoro OD [facility] 701 [facility] [address] [place] [address] PCP - Ophthalmology Ophthalmology 02/11/13 Denise Woodson APRN [employer] [address] [place] [address] PCP - General Family Practice 09/21/20 Denise Woodson APRN [employer] [address] [place] [address] Assigned PCP 07/17/20 Usha Simon APRN [employer] 9 [facility]2121[place], [place] [address] Nurse Practitioner Neurological Surgery 01/24/24 Dangelo Salinas MD [address] [place] [address] Neurology 01/27/24 Anastasia Stearns, RN Lead Oracle Bpm Consultant 02/06/24 Germaine Lopez, W Community Health Worker Primary Care - CC 02/18/24 Lisa Zambrano MD [address] [facility] [address] [place] [address] Assigned Heart and Vascular Provider 05/08/24 07/07/24 Raul Hoyos MD [address] [place] [address] Assigned Neuroscience Provider 05/08/24 07/07/24 Joya Lira Joleen [address] [address] Pharmacist Pharmacist 05/25/24 Joya Lira Jole[place] [address] [place] [address] Assigned MTM Pharmacist 06/08/24 Fabi Coates MD [address] [place] [address] 75 [place] [address] Genetics, Clinical 06/18/24 Robin Zepeda MD [address] [place] [address] Assigned Neuroscience Provider 07/08/24 08/07/24 Danna Cardenas PA-C 6405 [place] [address] Assigned Heart and Vascular Provider 07/08/24 Felicita Desai, GEMA Lead Oracle Bpm Consultant 07/14/24 07/28/24 Arthur Salas [facility] [address] [place] [address] Assigned Behavioral Health Provider 08/08/24 Randy Maradiaga DO 909 [place] [address] Assigned Neuroscience Provider 08/08/24 documented as of this encounter
--- OUTSIDE RECORDS SUMMARY | 2024-09-20 18:09 | XMS_ITS | Encounter Summary ---
Author Organization [place] Address [address] [place] [address] Care Team Providers Care Field Instructor Name Role Phone Winston Villatoro OD Unavailable [phone] Denise Woodson APRN RAIL CAR LOADER Unavailable [phone] Denise Woodson APRN RAIL CAR LOADER Primary Care Provider Usha Simon APRN RAIL CAR LOADER Unavailable + [phone] Daneglo Salinas MD Unavailable Anastasia Stearns RN Unavailable Germaine Lopez CH Unavailable [phone] Lisa Zambrano MD Unavailable + [phone] Raul Hoyos MD Unavailable Joya Lira [facility] Unavailable [phone] Joya Lira [facility] Unavailable [phone] Fabi Coates MD Unavailable [phone] Robin Catalan MD Unavailable [phone] Danna Cardenas PA-C Unavailable +[phone] Felicita Desai RN Unavailable Unavailab Arthur Rios Unavailable +[phone] Randy Maradiaga DO Unavailable + Encounter Details Date Type Department Care Team (Late st Contact Info) Description 05/13/2024 MyC Medical Advice [facility] Care Coordination [facility] [address] [place] [address] Anastasia Stearns, RN Social History Tobacco Use [...] How often do you attend yazidi or jain serv ices? Never 02/28/2024 Do [...] Answer Date Recorded PHQ-2 Score 2 05/05/2024 [facility] [place] [facility] Occupat ional Health - Occupational Stress [...] on file Legal Sex 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 ELECTRICAL TRYOUT PERSON Gender Identity Not on file Sexual Orientation [...] st Contact Info) Description 09/25/2024 11:00 AM ELECTRICAL TRYOUT PERSON [facility] [address] [place] [phone] Denise Woodson, [place] RAIL CAR LOADER [address] [facility] [place] [address] 09/29/2024 9:00 AM ELECTRICAL TRYOUT PERSON Virtual Visit [facility] Neurology [address] 3rd [place] [phone] Randy Maradiaga, [address] [address] 10/09/2024 1:20 PM ELECTRICAL TRYOUT PERSON Office Visit [facility] Heart [facility] 6405 [facility] [address] [place] [phone] Danna Cardenas PA-C 6405 [place] [address] 10/15/2024 11:00 AM ELECTRICAL TRYOUT PERSON Office Visit [facility] [address] [facility] [place] [address] Denise Woodson, BARRERA RAIL CAR LOADER [address] [facility] [place] [address] 10/30/2024 4:00 PM ELECTRICAL TRYOUT PERSON Virtual Visit [facility] Vascular [place] [address] [place] [phone] Lisa Zambrano MD [address] [place] [address] 12/29/2024 12:45 PM CDT Office Visit [facility] [address] Explorer [facility] [address],[place] [phone] Fabi Coates MD 420 [facility] 75 [place] [address] 12/29/2024 1:45 PM CDT Office Visit [facility] 2450 [facility] Explorer [facility] [address]th [address],[place] [address] Fabi Coates MD [address] [address] 06/01/2025 11:15 AM CDT Appointment [facility] [address] [place] [phone] Robin Zepeda MD [address] [place] [address] 06/04/2025 11:00 AM CDT Office Visit [facility] Neurosurgery [facility] [place] [address] [place] [address] 3rd [place] [address] Robin Zepeda MD [address] [place] [address] 7[address] Usha Simon APRN [facility] [address] [address] documented as of this encounter Goals Goal Patient Goal Type Associated Problems Recent Progress Patient-Stated? Author I would like additional resources and support to manage my health and prevent future avoidable ED visits/hospital admissions Care Plan Increased risk of re-admission 40%( 4 3:02 PM ELECTRICAL TRYOUT PERSON) Anastasia Talamantes, RN Note: Barriers: diagnosis of multiple, chronic, complex medical conditions, provider availability - wait time to complete appointments, etc. Strengths: motivated, engaged in care coordination Patient expressed understanding of goal: yes Action steps to achieve this goal: 1. I will follow up with my providers as scheduled/recommended - Pulmonology: TBD - Mental Health weekly - PT, OT and REFERRAL RN, continuing through [facility] [place]: - PCP: 09/18/2024 & 10/15/2024. - Vascular [...] clinic with 24/7 after hours services available. Wash Driller Helper will remain available as needed. documented as of this encounter Visit Diagnoses Not on filedocumented in this encounter Additional Health Concerns Active Problems Noted Date Diagnosed Date Increased risk of re-admission 02/18/2024 Infection Onset Date Last Indicated Resolved Time Rule Out COVID-19 09/13/2024 09/13/2024 09/13/2024 12:31 PM ELECTRICAL TRYOUT PERSON Assessment Noted Time PHQ-9 Depression Total Score: 5 03/17/20 24 9:45 AM CDT documented as of this encounter Care Teams Field Instructor Relationship Specialty Start Date End Date Winston Villatoro OD [facility] [address] [place] [address] PCP - Ophthalmology Ophthalmology 02/11/13 Denise Woodson APRN RAIL CAR LOADER [address] [place] [address] PCP - General Family Practice 09/21/20 Denise Woodson APRN RAIL CAR LOADER [address] [place] [address] Assigned PCP 07/17/20 Usha Simon APRN CNP [address] 874[address] Nurse Practitioner Neurological Surgery 01/24/24 Dangelo Salinas MD [address] [place], [place] [address] Neurology 01/27/24 Anastasia Stearns, RN Lead Wash Driller Helper 02/06/24 Germaine Lopez, W Community Health Worker Primary Care - CC 02/18/24 Lisa Zambrano MD 6405 [facility] [address] [place], [place] 44[address] Assigned Heart and Vascular Provider 05/08/24 07/07/24 Raul Hoyos MD [address] [place] [address] Assigned Neuroscience Provider 05/08/24 07/07/24 Joya Lira [facility] [address] [place] [address] Pharmacist Pharmacist 05/25/24 Joya Lira [facility] [address] [place] [address] Assigned MTM Pharmacist 06/08/24 Fabi Coates MD [address] [place] [address] [facility] [address] [place] [address] Genetics, Clinical 06/18/24 Robin Zepeda MD 909 [facility] [id number] [place] [address] Assigned Neuroscience Provider 07/08/24 08/07/24 Danna Cardenas PA-C 6405 [place] [address] Assigned Heart and Vascular Provider 07/08/24 Felicita Desai, RN Lead Wash Driller Helper 07/14/24 07/28/24 Arthur Salas [facility] [address] [place] [address] Assigned Behavioral Health Provider 08/08/24 Randy Maradiaga DO 9 [place] [address] Assigned Neuroscience Provider 08/08/24 documented as of this encounter
--- OUTSIDE RECORDS SUMMARY | 2024-09-20 18:09 | XMS_ITS | Encounter Summary ---
Author Organization [place] Address [address] [place] [address] Care Team Providers Care Rn Hemo Dialysis Name Role Phone Winston Villatoro OD Unavailable +[phone] Denise Woodson APRN PERSONAL CARE ASSISTANT Unavailable +[phone] Denise Woodson APRN PERSONAL CARE ASSISTANT Primary Care Provider Usha Simon APRN PERSONAL CARE ASSISTANT Unavailable + [phone] Dangelo Salinas MD Unavailable Anastasia Stearns RN Unavailable +[phone] Germaine Lopez CH Unavailable +[phone] Lisa Zambrano MD Unavailable + [phone] Raul Hoyos MD Unavailable Joya Lira [facility] Unavailable +[phone] Joya Lira [facility] Unavailable +[phone] Fabi Coates MD Unavailable [phone] Robin Catalan MD Unavailable +[phone] Danna Cardenas PA-C Unavailable +[phone] Felicita Desai RN Unavailable Unavailab Arthur Rios Unavailable +[phone] Randy Maradiaga DO Unavailable + Encounter Details Date Type Department Care Team (Late st Contact Info) Description 05/15/2024 MyC Medical Advice [facility] Neurology Clinic [address] 3rd [place] [address] Stacey Kelley RN Social History [...] How often do you attend protestant or mandaen serv ices? 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 Not on file Not on file Not on file Not on file Not on file Not on file Not on file documented as of this encounter Plan of Treatment Upcoming Encounters Date Type Department Care Team (Late st Contact Info) Description 09/25/2024 11:00 AM WELLFIELD TECHNICIAN Office Visit [facility] [address] [place] [phone] Denise Woodson APRN PERSONAL CARE ASSISTANT [address] [place], [place] [address] 09/29/2024 9:00 AM WELLFIELD TECHNICIAN Virtual Visit [facility] Neurology [address] 3rd [place] [phone] Randy Maradiaga, [address] [address] 10/09/2024 1:20 PM WELLFIELD TECHNICIAN Office Visit [facility] Heart [facility] 6405 [facility] [address] [place] [phone] Danna Cardenas PA-C [address] [place] [address] 10/15/2024 11:00 AM WELLFIELD TECHNICIAN Office Visit [facility] [address] [place] [phone] Denise Woodson APRN PERSONAL CARE ASSISTANT [address] [place], [place] 38[address] 10/30/2024 4:00 PM WELLFIELD TECHNICIAN Virtual Visit [facility] V[facility] [place] [address] [place] [phone] Lisa Zambrano MD [address] [place] [address] 12/29/2024 12:45 PM CDT Office Visit [facility] [address] [facility] [address],[place] [phone] Fabi Coates MD [address] [place] [address] [address] 12/29/2024 1:45 PM CDT Office Visit [facility] 24[address] [facility] Explorer [facility] [address] Fl[address],[place] [phone] Fabi Coates MD [address] [address] 06/01/2025 11:15 AM CDT Appointment [facility] Imaging [address] [place] [phone] Robin Zepeda MD [address] [place] [address] 06/04/2025 11:00 AM CDT Office Visit [facility] Neurosurgery Clinic [address] 3rd [place] [phone] Robin Zepeda MD [address] [place] [address] 812545 Usha Simon APRN PERSONAL CARE ASSISTANT [address] [place] [address] documented as of this encounter Goals Goal Patient Goal Type Associated Problems Recent Progress Patient-Stated? Author I would like additional resources and support to manage my health and prevent future avoidable ED visits/hospital admissions Care Plan Increased risk of re-admission 40%( 4 3:02 PM WELLFIELD TECHNICIAN) Anastasia Talamantes, RN Note: Barriers: diagnosis of multiple, chronic, complex medical conditions, provider availability - wait time to complete appointments, etc. Strengths: motivated, engaged in care coordination Patient expressed understanding of goal: yes Action steps to achieve this goal: 1. I will follow up with my providers as scheduled/recommended - Pulmonology: TBD - Mental Health weekly - PT, OT and HAND CUTTER, continuing through [facility] [place]: - PCP: 09/18/2024 & 10/15/2024. - Vascular [...] clinic with 24/ after hours services available. Nurse Ldr will remain available as needed. documented as of this encounter Visit Diagnoses Not on filedocumented in this encounter Additional Health Concerns Active Problems Noted Date Diagnosed Date Increased risk of re-admission 02/18/2024 Infection Onset Date Last Indicated Resolved Time Rule Out COVID-19 09/13/2024 09/13/2024 09/13/2024 12:31 PM WELLFIELD TECHNICIAN Assessment Noted Time PHQ-9 Depression Total Score: 5 03/17/20 24 9:45 AM CDT documented as of this encounter Care Teams Rn Hemo Dialysis Relationship Specialty Start Date End Date Winston Villatoro OD [facility] [address] [facility] [address] [place] [address] PCP - Ophthalmology Ophthalmology 02/11/13 Denise Woodson APRN PERSONAL CARE ASSISTANT [address] [address] PCP - General Family Practice 09/21/20 Denise Woodson APRN PERSONAL CARE ASSISTANT [address] [address] Assigned PCP 07/17/20 Usha Simon APRN PERSONAL CARE ASSISTANT [address] [place] [address] Nurse Practitioner Neurological Surgery 01/24/24 Dangelo Salinas MD [address] [place] [address] Neurology 01/27/24 Anastasia Stearns, RN Lead Nurse Ldr 02/06/24 Germaine Lopez, W Community Health Worker Primary Care - CC 02/18/24 Lisa Zambrano MD 6[address] [facility] [address] [place] [address] Assigned Heart and Vascular Provider 05/08/24 07/07/24 Raul Hoyos MD [address] [address] Assigned Neuroscience Provider 05/08/24 07/07/24 Joya Lira RPH [address] [address] Pharmacist Pharmacist 05/25/24 Joya Lira R[facility] [address] [place] [address] Assigned MTM Pharmacist 06/08/24 Fabi Coates MD [address] [place] [address] [facility] [address] [place] [address] Genetics, Clinical 06/18/24 Robin Zepeda MD [address] [facility] [id number] [place] [address] Assigned Neuroscience Provider 07/08/24 08/07/24 Danna Cardenas PA-C [address]405 [place] [address] Assigned Heart and Vascular Provider 07/08/24 Felicita Desai, GEMA Lead Nurse Ldr 07/14/24 07/28/[address] [facility] [address] [place] [address] Assigned Behavioral Health Provider 08/08/24 Randy Maradiaga DO [address] [place] [address] Assigned Neuroscience Provider 08/08/24 documented as of this encounter
--- OUTSIDE RECORDS SUMMARY | 2024-09-20 18:09 | XMS_ITS | Encounter Summary ---
Author Organization [place] Address [address] [place] [address] Care Team Providers Care Flag Decorator Name Role Phone Winston Villatoro OD Unavailable [phone] Denise Woodson APRN CARDIOPULMONARY SUPERVISOR Unavailable [phone] Denise Woodson APRN CARDIOPULMONARY SUPERVISOR Primary Care Provider Usha Simon APRN CARDIOPULMONARY SUPERVISOR Unavailable + [phone] Dangelo Salinas MD Unavailable Anastasia Stearns RN Unavailable Germaine Lopez CH Unavailable +[phone] Lisa Zambrano MD Unavailable + [phone] Raul Hoyos MD Unavailable Joya Lira [facility] Unavailable [phone] Joya Lira [facility] Unavailable +[phone] Fabi Coates MD Unavailable [phone] Robin Catalan MD Unavailable [phone] Danna Cardenas PA-C Unavailable +[phone] Felicita Desai RN Unavailable Unavailab Arthur Rios Unavailable +[phone] Randy Maradiaga DO Unavailable + Encounter Details Date Type Department Care Team (Late st Contact Info) Description 05/11/2024 MyC Medical Advice [facility] [address] [place] [address] Denise Woodson APRN CARDIOPULMONARY SUPERVISOR [address] [place] [address] Social History Tobacco Use Types [...] often do you attend jehovah's witness or shinto serv ices? 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 Qing Copeland Lead Button Breaker [facility] documented in this encounter Plan of Treatment Upcoming Encounters Date Type Department Care Team (Late st Contact Info) Description 09/25/2024 11:00 AM EXTERNAL GRINDER TOOL Office Visit [facility] [address] [place] [phone] Denise Woodson, BARRERA CARDIOPULMONARY SUPERVISOR [address] [place], [place] [phone] 09/29/2024 9:00 AM EXTERNAL GRINDER TOOL Virtual Visit [facility] Neurology Clinic [address] [place] [phone] Randy Maradiaga, [address] [address] 10/09/2024 1:20 PM EXTERNAL GRINDER TOOL Office Visit [facility] Heart [facility] 6[address] [facility] [address] [place] [phone] Danna Cardenas PA-C [address] [place] [address] 10/15/2024 11:00 AM EXTERNAL GRINDER TOOL Office Visit [facility] [address] [place] [address] Denise Woodson UI UX DEVELOPER [facility] [address] [facility] [place], [place] 4184068 10/30/2024 4:00 PM EXTERNAL GRINDER TOOL Virtual Visit [facility] Vascular [facility] [address] [place] [address] Lisa Zambrano MD [address] [place] 29[address] 12/29/2024 12:45 PM CDT Office Visit [facility] [address] [place] [phone] Fabi Coates MD [address] [place] [address] 12/29/2024 1:45 PM CDT Office Visit [facility] [address] [place] [phone] Fabi Coates MD [address] [place] [address] 06/01/2025 11:15 AM CDT Appointment [facility] [facility] [address] [place] [address] Robin Zepeda MD [address] [place], [place] [address] [address] 06/04/2025 11:00 AM CDT Office Visit [facility] Neurosurgery Clinic [address] 3rd [place] [address] Robin Zepeda MD [address] [place] [address] Usha Simon APRN CARDIOPULMONARY SUPERVISOR [address] [address] documented as of this encounter Goals Goal Patient Goal Type Associated Problems Recent Progress Patient-Stated? Author I would like additional resources and support to manage my health and prevent future avoidable ED visits/hospital admissions Care Plan Increased risk of re-admission 40%( 4 3:02 PM EXTERNAL GRINDER TOOL) Anastasia Talamantes, RN Note: Barriers: diagnosis of multiple, chronic, complex medical conditions, provider availability - wait time to complete appointments, etc. Strengths: motivated, engaged in care coordination Patient expressed understanding of goal: yes Action steps to achieve this goal: 1. I will follow up with my providers as scheduled/recommended - Pulmonology: TBD - Mental Health weekly - PT, OT and PLAN MANAGER, continuing through [facility] [place]: - PCP: 09/18/2024 & 10/15/2024. - Vascular [...] clinic with 24/7 after hours services available. Horticulturalist will remain available as needed. documented as of this encounter Visit Diagnoses Not on filedocumented in this encounter Additional Health Concerns Active Problems Noted Date Diagnosed Date Increased risk of re-admission 02/18/2024 Infection Onset Date Last Indicated Resolved Time Rule Out COVID-19 09/13/2024 09/13/2024 09/13/2024 12:31 PM EXTERNAL GRINDER TOOL Assessment Noted Time PHQ-9 Depression Total Score: 5 03/17/20 24 9:45 AM CDT documented as of this encounter Care Teams Flag Decorator Relationship Specialty Start Date End Date Winston Villatoro OD [facility] [address] [place] [address] PCP - Ophthalmology Ophthalmology 02/11/13 Denise Woodson APRN CARDIOPULMONARY SUPERVISOR [address] [place] [address] PCP - General Family Practice 09/21/20 Denise Woodson APRN CARDIOPULMONARY SUPERVISOR [address] [place] [address] Assigned PCP 07/17/20 Usha Simon APRN CARDIOPULMONARY SUPERVISOR 9 [facility]2121[place], [place] [address] Nurse Practitioner Neurological Surgery 01/24/24 Dangelo Salinas MD [address] [place], [place] [phone] Neurology 01/27/24 Anastasia Stearns, RN Lead Horticulturalist 02/06/24 Germaine Lopez, W Community Health Worker Primary Care - CC 02/18/24 Lisa Zambrano MD [address] [place] [address] Assigned Heart and Vascular Provider 05/08/24 07/07/24 Raul Hoyos MD 9 [facility]121[place] [address] Assigned Neuroscience Provider 05/08/24 07/07/24 Joya Lira [facility] [address] [place] [address] Pharmacist Pharmacist 05/25/24 Joya Lira [facility] [address] [place] [address] Assigned MTM Pharmacist 06/08/24 Fabi Coates MD [address] [place] [address] 75 [place] [address] Genetics, Clinical 06/18/24 Robin Zepeda MD [address] [place], [place] [address] [address] Assigned Neuroscience Provider 07/08/24 08/07/24 Danna Cardenas PA-C [address] [place] [address] Assigned Heart and Vascular Provider 07/08/24 Felicita Desai, GEMA Lead Horticulturalist 07/14/24 07/28/24 Arthur Salas DRESSMAKING TEACHER [address] [address] Assigned Behavioral Health Provider 08/08/24 Randy Maradiaga DO 909 [place] [address] Assigned Neuroscience Provider 08/08/24 documented as of this encounter
--- OUTSIDE RECORDS SUMMARY | 2024-09-20 18:09 | XMS_ITS | Encounter Summary ---
Author Organization [place] Address [address] [place] [address] Care Team Providers Care Police Surgeon Name Role Phone Winston iVllatoro OD Unavailable +[phone] Denise Woodson APRN CONTACT LENS BLOCKER Unavailable +[phone] Denise Woodson APRN CONTACT LENS BLOCKER Primary Care Provider Usha Simon APRN CONTACT LENS BLOCKER Unavailable + [phone] Dangelo Salinas MD Unavailable Anastasia Stearns RN Unavailable Germaine Lopez CH Unavailable +[phone] Lisa Zambrano MD Unavailable + [phone] Raul Hoyos MD Unavailable [phone] Joya Lira [facility] Unavailable +[phone] Joya Lira [facility] Unavailable [phone] Fabi Coates MD Unavailable [phone] Robin Catalan MD Unavailable [phone] Danna Cardenas PA-C Unavailable +[phone] Felicita Desai RN Unavailable Unavailab Arthur Rios Unavailable +[phone] Randy Maradiaga DO Unavailable + Encounter Details Date Type Department Care Team (Late st Contact Info) Description 05/21/2024 MyC Medical Advice [facility] [address] [place] [address] Qing Copeland Social History Tobacco Use Types [...] Answer Date Recorded PHQ-2 Score 2 05/05/2024 [facility] [place] of Occupat ional Health - Occupational Stress [...] on file Legal Sex 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 CABLE SUPERVISOR Gender Identity Not on file Sexual [...] st Contact Info) Description 09/25/2024 11:00 AM CABLE SUPERVISOR Office Visit [facility] [address] [place] [phone] Denise Woodson, BARRERA CONTACT LENS BLOCKER [address] [place], [place] [phone] 09/29/2024 9:00 AM CABLE SUPERVISOR Virtual Visit [facility] Neurology [address] 3rd [place] [phone] Randy Maradiaga, [address] [address] 10/09/2024 1:20 PM CABLE SUPERVISOR Office Visit [facility] 6405 [facility] [address] [place] [phone] Danna Cardenas PA-C 6405 [place], [place] [address] 10/15/2024 11:00 AM CABLE SUPERVISOR Office Visit [facility] [address] [place] [phone] Denise Woodson, BARRERA CONTACT LENS BLOCKER [address] [place] [address] 10/30/2024 4:00 PM CABLE SUPERVISOR Virtual Visit [facility] Vascular [place] [address] [place] [phone] Lisa Zambrano MD [address] [place] [address] 12/29/2024 12:45 PM CDT Office Visit [facility] [address] [facility] [address],[place] [phone] Fabi Coates MD 420 [facility] 75 [place] [address] 12/29/2024 1:45 PM CDT Office Visit [facility] 2450 [facility] Explorer [facility] 12[address] Fl[address],[place] [phone] Fabi Coates MD [address] [place] [address] [facility] [address] [place] [address] 06/01/2025 11:[address] [facility] Specialty Care Center Imaging [address] [place] [phone] Robin Zepeda MD [address] [place] [address] 06/04/2025 11:00 AM CDT Office Visit [facility] Neurosurgery Clinic [address] 3rd [place] [phone] Robin Zepeda MD [address] [place] [address] Usha Simon APRN [address] [address] documented as of this encounter Goals Goal Patient Goal Type Associated Problems Recent Progress Patient-Stated? Author I would like additional resources and support to manage my health and prevent future avoidable ED visits/hospital admissions Care Plan Increased risk of re-admission 40%( 4 3:02 PM CABLE SUPERVISOR) Anastasia Talamantes, RN Note: Barriers: diagnosis of multiple, chronic, complex medical conditions, provider availability - wait time to complete appointments, etc. Strengths: motivated, engaged in care coordination Patient expressed understanding of goal: yes Action steps to achieve this goal: 1. I will follow up with my providers as scheduled/recommended - Pulmonology: TBD - Mental Health weekly - PT, OT and BUILDING TRADES TEACHER, continuing through [facility] [place]: - PCP: 09/18/2024 & 10/15/2024. - Vascular [...] clinic with 24/7 after hours services available. Podiatric Foot And Ankle Specialist will remain available as needed. documented as of this encounter Visit Diagnoses Not on filedocumented in this encounter Additional Health Concerns Active Problems Noted Date Diagnosed Date Increased risk of re-admission 02/18/2024 Infection Onset Date Last Indicated Resolved Time Rule Out COVID-19 09/13/2024 09/13/2024 09/13/2024 12:31 PM CABLE SUPERVISOR Assessment Noted Time PHQ-9 Depression Total Score: 5 03/17/20 24 9:45 AM CDT documented as of this encounter Care Teams Police Surgeon Relationship Specialty Start Date End Date Winston Villatoro OD [facility] [address] [facility] [address] [place] [address] PCP - Ophthalmology Ophthalmology 02/11/13 Denise Woodson APRN CONTACT LENS BLOCKER [address] [address] PCP - General Family Practice 09/21/20 Denise Woodson APRN CONTACT LENS BLOCKER [address] [address] [address] Assigned PCP 07/17/20 Usha Simon APRN CONTACT LENS BLOCKER 909 [facility]121[place] [address] Nurse Practitioner Neurological Surgery 01/24/24 Dangelo Salinas MD [address] [place] [address] Neurology 01/27/24 Anastasia Stearns, RN Lead Podiatric Foot And Ankle Specialist 02/06/24 Germaine Lopez, W Community Health Worker Primary Care - CC 02/18/24 Lisa Zambarno MD 6[address] [facility] [address] [place] [address] Assigned Heart and Vascular Provider 05/08/24 07/07/24 Raul Hoyos MD 909 [facility]121[place] [address] Assigned Neuroscience Provider 05/08/24 07/07/24 Joya Lira RPH [address] [place] [address] Pharmacist Pharmacist 05/25/24 Joya Lira [facility] [address] [place] [address] Assigned MTM Pharmacist 06/08/24 Fabi Coates MD [address] [facility] [address] [place] [address] Genetics, Clinical 06/18/24 Robin Zepeda MD 909 [facility] KA3876MA [place] [address] Assigned Neuroscience Provider 07/08/24 08/07/24 Danna Cardenas PA-C 6405 [place] [address] Assigned Heart and Vascular Provider 07/08/24 Felicita Desai, RN Lead Podiatric Foot And Ankle Specialist 07/14/24 07/28/24 Arthur Salas [facility] [address] [place] [address] Assigned Behavioral Health Provider 08/08/24 Randy Maradiaga DO [address] [place] [address] Assigned Neuroscience Provider 08/08/24 documented as of this encounter
--- OUTSIDE RECORDS SUMMARY | 2024-09-20 18:09 | XMS_ITS | Encounter Summary ---
Author Organization [facility] Address [address] [place] [address] Care Team Providers Care Hydraulic Press Servicer Name Role Phone Winston Villatoro OD Unavailable [phone] Denise Woodson APRN DATA COLLECTION INTERVIEWER Unavailable [phone] Denise Woodson APRN DATA COLLECTION INTERVIEWER Primary Care Provider Usha Simon APRN DATA COLLECTION INTERVIEWER Unavailable + [phone] Dangelo Salinas MD Unavailable Anastasia Stearns RN Unavailable Germaine Lopez CHW Unavailable [phone] Robin Zepeda MD Unavailable Lisa Zambrano MD Unavailable Raul Hoyos MD Unavailable Joya Lira RP Unavailable Joya Lira RPH Unavailable Fabi Coates MD Unavailable [phone] Robin Zepeda MD Unavailable Danna CardenasC Unavailable [phone] Felicita Desai RN Unavailable Unavailab Arthur Rios Unavailable [phone] Randy Maradiaga DO Unavailable + Encounter Details Date Type Department Care Team (Late st Contact Info) Description 04/02/2024 Ajay Medical Advice [facility] Neurology Clinic [address] [place] [address] Liliane Cobos Social History Tobacco [...] How often do you attend orthodoxy or christian serv ices? 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 Not on file Not on file Not on file Not on file Not on file Not on file documented as of this encounter Plan of Treatment Upcoming Encounters Date Type Department Care Team (Late st Contact Info) Description 09/25/2024 11:00 AM RISK CONTROL PRODUCT LIABILITY DIRECTOR [facility] [address] [place] [address] Denise Woodson, BARRERA DATA COLLECTION INTERVIEWER [address] [facility] [place] 44[address] 09/29/2024 9:00 AM RISK CONTROL PRODUCT LIABILITY DIRECTOR Virtual Visit [facility] Neurology [address] 3rd [place] [phone] Randy Maradiaga, [address] [id number] 10/09/2024 1:20 PM RISK CONTROL PRODUCT LIABILITY DIRECTOR Office Visit [facility] Heart [facility] [address] [facility] [address] [place] [phone] Danna Cardenas PA-C 6405 [place] [address] 10/15/2024 11:00 AM RISK CONTROL PRODUCT LIABILITY DIRECTOR Office Visit [facility] [address] [place] [address] Denise Woodson, B[place]ERA DATA COLLECTION INTERVIEWER [address] [facility] [address] 10/30/2024 4:00 PM RISK CONTROL PRODUCT LIABILITY DIRECTOR Virtual Visit [facility] V[facility] [address] [place] [phone] Lisa Zambrano MD [address] [place] [id number] 12/29/2024 12:45 PM CDT Office Visit [facility] [address] [facility] [address]th [address]r,[place] [phone] Fabi Coates MD 420 [facility] 75 [place] [address] 12/29/2024 1:45 PM CDT Office Visit [facility] 2450 [facility] Explorer [facility] 12th Flr,[place] [address] Fabi Coates MD [address] [facility] 75 [place] [address] 06/01/2025 11:15 AM CDT Appointment [facility] Imaging [address] [place] [phone] Robin Zepeda MD [address] [place] [address]20[address] 06/04/2025 11:00 AM CDT Office Visit [facility] [place] [address] [place] [address] 3rd [place] [address] Robin Zepeda MD [address] [place] [address] 158415 Usha Simon APRN DATA COLLECTION INTERVIEWER [address] 727665 documented as of this encounter Goals Goal Patient Goal Type Associated Problems Recent Progress Patient-Stated? Author I would like additional resources and support to manage my health and prevent future avoidable ED visits/hospital admissions Care Plan Increased risk of re-admission 40%( 4 3:02 PM RISK CONTROL PRODUCT LIABILITY DIRECTOR) Anastasia Talamantes, RN Note: Barriers: diagnosis of multiple, chronic, complex medical conditions, provider availability - wait time to complete appointments, etc. Strengths: motivated, engaged in care coordination Patient expressed understanding of goal: yes Action steps to achieve this goal: 1. I will follow up with my providers as scheduled/recommended - Pulmonology: TBD - Mental Health weekly - PT, OT and TESTING CONSULTANT, continuing through [facility]: - PCP: 09/18/2024 & 10/15/2024. - Vascular [...] clinic with 24/7 after hours services available. Dental Officer will remain available as needed. documented as of this encounter Visit Diagnoses Not on filedocumented in this encounter Additional Health Concerns Active Problems Noted Date Diagnosed Date Increased risk of re-admission 02/18/2024 Infection Onset Date Last Indicated Resolved Time Rule Out COVID-19 09/13/2024 09/13/2024 09/13/2024 12:31 PM RISK CONTROL PRODUCT LIABILITY DIRECTOR Assessment Noted Time PHQ-9 Depression Total Score: 5 03/17/20 24 9:45 AM CDT documented as of this encounter Care Teams Hydraulic Press Servicer Relationship Specialty Start Date End Date Winston Villatoro OD [facility] [address] [place] [address] PCP - Ophthalmology Ophthalmology 02/11/13 Denise Woodson APRN DATA COLLECTION INTERVIEWER [address] [address] [address] PCP - General Family Practice 09/21/20 Denise Woodson APRN DATA COLLECTION INTERVIEWER [address] [address] [address] Assigned PCP 07/17/20 Usha Simon APRN DATA COLLECTION INTERVIEWER [address] [address] Nurse Practitioner Neurological Surgery 01/24/24 Dangelo Salinas MD [address] [place], [place] [id number] Neurology 01/27/24 Anastasia Stearns, RN Lead Dental Officer 02/06/24 Germaine Lopez, W Community Health Worker Primary Care - CC 02/18/24 Robin Zepeda MD [address] [address] Assigned Neuroscience Provider 03/08/24 05/07/24 Lisa Zambrano MD [address] [facility] [address] [place] [address] Assigned Heart and Vascular Provider 05/08/24 07/07/24 Raul Hoyos MD [address] [address] Assigned Neuroscience Provider 05/08/24 07/07/24 Joya Lira RPH [address] [address] Pharmacist Pharmacist 05/25/24 Joya Lira RPH [address] [place] [address] Assigned MTM Pharmacist 06/08/24 Fabi Coates MD [address] [place] [address] 75 [place] [address] Genetics, Clinical 06/18/24 Robin Zepeda MD 9 [facility] [id number] [place] [address] Assigned Neuroscience Provider 07/08/24 08/07/24 Danna Cardenas PA-C 6405 [place] [address] Assigned Heart and Vascular Provider 07/08/24 Felicita Desai, GEMA Lead Dental Officer 07/14/24 07/28/24 Arthur Salas, [facility] [address] [place] [address] Assigned Behavioral Health Provider 08/08/24 Randy Maradiaga DO [address] [place] [address] Assigned Neuroscience Provider 08/08/24 documented as of this encounter
--- OUTSIDE RECORDS SUMMARY | 2024-09-20 18:09 | XMS_ITS | Encounter Summary ---
Author Organization [facility] Address [address] [place] [address] Care Team Providers Care Lawn Sprinkler Installer Name Role Phone Winston Villatoro OD Unavailable [phone] Denise Woodson APRN MARBLE CARVER Unavailable [phone] Denise Woodson APRN MARBLE CARVER Primary Care Provider Usha Simon APRN MARBLE CARVER Unavailable + [phone] Dangelo Salinas MD Unavailable Anastasia Stearns RN Unavailable Germaine Lopez CHW Unavailable [phone] Robin Zepeda MD Unavailable Lisa Zambrano MD Unavailable Raul Hoyos MD Unavailable [phone] Joya Lira RP Unavailable [phone] Joya Lira RPH Unavailable [phone] Fabi Coates MD Unavailable [phone] Robin Zepeda MD Unavailable [phone] Danna CardenasC Unavailable [phone] Felicita Desai RN Unavailable Unavailab Arthur Rios Unavailable [phone] Randy Maradiaga DO Unavailable + Encounter Details [...] How often do you attend presybeterian or alevism serv ices? 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 Not on file Not on file Not on file Not on file Not on file Not on file documented as of this encounter Plan of Treatment Upcoming Encounters Date Type Department Care Team (Late st Contact Info) Description 09/25/2024 11:00 AM ROUTE SALES REPRESENTATIVE Office Visit [facility] [address] [place] [phone] Denise Woodson, PRODUCTION TRUCK DRIVER MARBLE CARVER [address] [facility] [place] [phone] 09/29/2024 9:00 AM ROUTE SALES REPRESENTATIVE Virtual Visit [facility] 909 [facility] 3rd [place] [phone] Randy Maradiaga, [address] [address] 10/09/2024 1:20 PM ROUTE SALES REPRESENTATIVE Office Visit [facility] Heart [facility] [address] [facility] [address] [place] [phone] Danna Cardenas PA-C 6405 [place], [place] [address] 10/15/2024 11:00 AM ROUTE SALES REPRESENTATIVE Office Visit [facility] [address] [place] [address] Denise Woodson, BARRERA MARBLE CARVER [address] [place] [address] 10/30/2024 4:00 PM ROUTE SALES REPRESENTATIVE Virtual Visit [facility] Vascular [facility] [address] [place] [phone] Lisa Zambrano MD [address] [place] [address] 12/29/2024 12:45 PM CDT Office Visit [facility] [address] [facility] 12th Fl[address],[place] [phone] Fabi Coates MD 420 [facility] 75 [place], [place] [address] 12/29/2024 1:45 PM CDT Office Visit [facility] Pediatric Specialty Clinic 2450 [facility] 12th Fl[address],[place] [address] Fabi Coates MD [address] [facility] [address] [place] [address] 06/01/2025 11:15 AM CDT Appointment [facility] Imaging [address] [place] [phone] Robin Zepeda MD [address] [place] [address] 06/04/2025 11:00 AM CDT Office Visit [facility] [address] 3rd [place] [address] Robin Zepeda MD [address] [place] [address] Usha Simon APRN [address] [address] documented as of this encounter Goals Goal Patient Goal Type Associated Problems Recent Progress Patient-Stated? Author I would like additional resources and support to manage my health and prevent future avoidable ED visits/hospital admissions Care Plan Increased risk of re-admission 40%( 4 3:02 PM ROUTE SALES REPRESENTATIVE) Anastasia Talamantes, RN Note: Barriers: diagnosis of multiple, chronic, complex medical conditions, provider availability - wait time to complete appointments, etc. Strengths: motivated, engaged in care coordination Patient expressed understanding of goal: yes Action steps to achieve this goal: 1. I will follow up with my providers as scheduled/recommended - Pulmonology: TBD - Mental Health weekly - PT, OT and SCALPER OPERATOR, continuing through [facility]: - PCP: 09/18/2024 & 10/15/2024. - Vascular [...] clinic with 24/7 after hours services available. Surgery Center Administrator will remain available as needed. documented as of this encounter Visit Diagnoses Not on filedocumented in this encounter Additional Health Concerns Active Problems Noted Date Diagnosed Date Increased risk of re-admission 02/18/2024 Infection Onset Date Last Indicated Resolved Time Rule Out COVID-19 09/13/2024 09/13/2024 09/13/2024 12:31 PM ROUTE SALES REPRESENTATIVE Assessment Noted Time PHQ-9 Depression Total Score: 5 03/17/20 24 9:45 AM CDT documented as of this encounter Care Teams Lawn Sprinkler Installer Relationship Specialty Start Date End Date Winston Villatoro OD [facility] [address] [place] [address] PCP - Ophthalmology Ophthalmology 02/11/13 Denise Woodson APRN MARBLE CARVER [address] [address] [address] PCP - General Family Practice 09/21/20 Denise Woodson APRN MARBLE CARVER [address] [place] [address] Assigned PCP 07/17/20 Usha Simon APRN MARBLE CARVER [address] [address] Nurse Practitioner Neurological Surgery 01/24/24 Dangelo Salinas MD [address] [place] [address] Neurology 01/27/24 Anastasia Stearns, RN Lead Surgery Center Administrator 02/06/24 Germaine Lopez, W Community Health Worker Primary Care - CC 02/18/24 Robin Zepeda MD [address] [address] Assigned Neuroscience Provider 03/08/24 05/07/24 Lisa Zambrano MD [address] [place] [address]85 Assigned Heart and Vascular Provider 05/08/24 07/07/24 Raul Hoyos MD [address] [address] Assigned Neuroscience Provider 05/08/24 07/07/24 Joya Lira RPH [address] [place] [address] Pharmacist Pharmacist 05/25/24 Joya Lira RPH [address] [place] [address] Assigned MTM Pharmacist 06/08/24 Fabi Coates MD 420 [facility] 75 [place] [address] Genetics, Clinical 06/18/24 Robin Zepeda MD 9 [facility] [id number] [place] [address] Assigned Neuroscience Provider 07/08/24 08/07/24 Danna Cardenas PA-C 6405 [place] [address] Assigned Heart and Vascular Provider 07/08/24 Felicita Desai, RN Lead Surgery Center Administrator 07/14/24 07/28/24 Arthur Salas [facility] [address] [place] [address] Assigned Behavioral Health Provider 08/08/24 Randy Maradiaga DO [address] [place] [address] Assigned Neuroscience Provider 08/08/24 documented as of this encounter
--- OUTSIDE RECORDS SUMMARY | 2024-09-20 18:10 | XMS_ITS | Encounter Summary ---
Author Organization [facility] Address [address] [place] [address] Care Team Providers Care Grocery Caddy Name Role Phone Yung Madrigal MD Unavailable Unavailable Winston Villatoro OD Unavailable [phone] Denise Woodson APRN COMPRESSED AIR PILE DRIVER OPERATOR Unavailable [phone] Denise Woodson APRN COMPRESSED AIR PILE DRIVER OPERATOR Primary Care Provider Usha Simon APRN COMPRESSED AIR PILE DRIVER OPERATOR Unavailable [phone] Dangelo Salinas MD Unavailable Usha Simon APRN COMPRESSED AIR PILE DRIVER OPERATOR Unavailable Anastasia Stearns RN Unavailable Germaine Lopez CHW Unavailable [phone] Robin Zepeda MD Unavailable Lisa Zambrano MD Unavailable Raul Hoyos MD Unavailable Joya Lira [facility] Unavailable Joya Lira Joleen Unavailable Fabi Coates MD Unavailable [phone] Robin Zepeda MD Unavailable Danna Cardenas PA-C Unavailable [phone] Felicita Desai RN Unavailable Unavailab Arthur Rios Unavailable [phone] LaronRandy bucio Yobany MARTIN Unavailable + Reason for Visit * Reason Comments Medication Refill Encounter Details Date Type Department Care Team (Late st Contact Info) Description 01/07/2023 Refill [facility] [address] [place] [address] Denise Woodson, LAW FIRM PARTNER [facility] [address] [place] [address] Medication Refill Social History [...] on file Legal Sex 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 WALLPAPER EMBOSSER HELPER Gender Identity Not on file Sexual Orientation Not on file 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 Karla Gross Top Closer * Telephone Encounter - Karla Morales - 01/17/2023 8:59 AM CDT LVM requesting a call back for an appt (physical). One more attempt will be made. Karla Gross Top Closer * Telephone Encounter - Arianna Lo - 01/10/2023 3:33 PM CDT Sent Squirro message requesting a call back for an appt. Two more attempts will be made. Arianna Lo [place] Top Closer * Telephone Encounter - Leslie Mcclellan, RN [...] 0 [phone] 0 Leslie Mcclellan RN, BSN [facility] documented in this encounter Plan of Treatment Upcoming Encounters Date Type Department Care Team (Late st Contact Info) Description 09/25/2024 11:00 AM WALLPAPER EMBOSSER HELPER Office Visit [facility] [address] [place] [address] Denise Woodson APRN [facility] [address] [place] [address] 09/29/2024 9:00 AM WALLPAPER EMBOSSER HELPER Virtual Visit [facility]rology [facility] [place] 909 [facility] 3rd [place] [address] Randy Maradiaga DO [address] [place] [address] 10/09/2024 1:20 PM WALLPAPER EMBOSSER HELPER Office Visit [facility] Heart [address] [phone] Danna Cardenas PA-C 0316 [facility] [place] 173415 10/15/2024 11:00 AM WALLPAPER EMBOSSER HELPER [facility] [address] [place] [phone] Denise Woodson, BARRERA COMPRESSED AIR PILE DRIVER OPERATOR [address] [place] [address] 10/30/2024 4:00 PM WALLPAPER EMBOSSER HELPER Virtual Visit [facility] Vascular Clinic [place] [address] [place] [phone] Lisa Zambrano MD [address] [place] 9311[address] 12/29/2024 12:45 PM CDT Office Visit [facility] Pediatric [facility]ty Clinic [address] [place] [address] [phone] Fabi Coates MD [address] [place] [address] 12/29/2024 1:45 PM CDT Office Visit [facility]ty [facility] [address] [place] [address] [phone] Fabi Coates MD [address] 7665[address] 06/01/2025 11:15 AM CDT Appointment [facility] Imaging [address] [facility] [address] [place] [phone] Robin Zepeda MD [address] [place] [address] 06/04/2025 11:00 AM CDT Office Visit [address] 3rd [place] [address] Robin Zepeda MD [address] [place] [address] Usha Simon APRN COMPRESSED AIR PILE DRIVER OPERATOR [address] [place] [address] documented as of this encounter Visit Diagnoses Diagnosis Moderate persistent asthma without complication Unspecified asthma documented in this encounter Additional Health Concerns Infection Onset Date Last Indicated Resolved Time Rule Out COVID-19 09/13/2024 09/13/2024 09/13/2024 12:31 PM WALLPAPER EMBOSSER HELPER Assessment Noted Time PHQ-9 Depression Total Score: 0 06/23/20 21 4:11 PM CDT documented as of this encounter Care Teams Grocery Caddy Relationship Specialty Start Date End Date Yung Madrigal MD RETIRED PCP - Orthopaedics Orthopedics 08/26/12 01/20/24 Winston Villatoro, AMELIE [facility] 701 [facility] [address] [place] [address] PCP - Ophthalmology Ophthalmology 02/11/13 Denise Woodson APRN COMPRESSED AIR PILE DRIVER OPERATOR [address] [address] [address] PCP - General Family Practice 09/21/20 Denise Woodson APRN COMPRESSED AIR PILE DRIVER OPERATOR [address] [address] [address] Assigned PCP 07/17/20 Usha Simon APRN COMPRESSED AIR PILE DRIVER OPERATOR [address] [address] Nurse Practitioner Neurological Surgery 01/24/24 Dangelo Salinas MD [address] [place], [place] [address] Neurology 01/27/24 Usha Simon APRN COMPRESSED AIR PILE DRIVER OPERATOR [address] [address] Assigned Neuroscience Provider 02/06/24 03/07/24 Anastasia Stearns, RN Lead City Driver 02/06/24 Germaine Lopez, W Community Health Worker Primary Care - CC 02/18/24 Robin Zepeda MD [address] 5614[address] Assigned Neuroscience Provider 03/08/24 05/07/24 Lisa Zambrano MD [address] [place] [id number] Assigned Heart and Vascular Provider 05/08/24 07/07/24 Raul Hoyos MD [address] 917735 Assigned Neuroscience Provider 05/08/24 07/07/24 Joya Lira [facility] [address] [place], [place] [phone] Pharmacist Pharmacist 05/25/24 Joya Lira [facility] [address] [place] [address] Assigned MTM Pharmacist 06/08/24 Fabi Coates MD [address] [address] [facility] [address] [place], [place] [address] Genetics, Clinical 06/18/24 Robin Zepeda MD [address] [place] [address] [id number] [place], [place] 8[address]65 Assigned Neuroscience Provider 07/08/24 08/07/24 Danna Cardenas PA-C 6405 [place] [address] Assigned Heart and Vascular Provider 07/08/24 Felicita Desai, RN Lead City Driver 07/14/24 07/28/24 Arthur Salas [facility] [address] [place] [address] Assigned Behavioral Health Provider 08/08/24 Randy Maradiaga DO [address] [place] [address] Assigned Neuroscience Provider 08/08/24 documented as of this encounter
--- OUTSIDE RECORDS SUMMARY | 2024-09-20 18:10 | XMS_ITS | Encounter Summary ---
Author Organization [facility] Address [address] [place] [address] Care Team Providers Care Manager Life Sciences Name Role Phone Winston Villatoro OD Unavailable [phone] Denise Woodson APRN BILLING AND QUALITY TECHNICIAN Unavailable [phone] Denise Woodson APRN BILLING AND QUALITY TECHNICIAN Primary Care Provider Usha Simon APRN BILLING AND QUALITY TECHNICIAN Unavailable Dangelo Salinas MD Unavailable Usha Simon APRN BILLING AND QUALITY TECHNICIAN Unavailable Anastasia Stearns RN Unavailable [phone] Germaine Lopez CH Unavailable [phone] Robin Zepeda MD Unavailable Lisa Zambrano MD Unavailable Raul Hoyos MD Unavailable Joya Lira RP Unavailable [phone] Joya Lira RPJoleen Unavailable [phone] Fbai Coates MD Unavailable [phone] Robin Zeepda MD Unavailable Danna Cardenas PA-C Unavailable [phone] Felicita Desai RN Unavailable Unavailab Arthur Rios [facility] Unavailable Randy Maradiaga DO Unavailable + Encounter Details Date Type Department Care Team (Late st Contact Info) Description 01/27/2024 MyC Medical Advice [facility] Neurology [address] [address] Phoebe Del Cid Social History Tobacco [...] on file Legal Sex 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 MANUFACTURERS AGENT Gender Identity Not on file Sexual Orientation Not on file 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 Not on file Not on file Not on file Not on file Not on file Not on file documented as of this encounter Plan of Treatment Upcoming Encounters Date Type Department Care Team (Late st Contact Info) Description 09/25/2024 11:00 AM MANUFACTURERS AGENT Office Visit [facility] [address] [place] [phone] Denise Woodson APRN [facility] [address] [place], [place] [id number] 09/29/2024 9:00 AM MANUFACTURERS AGENT Virtual Visit [facility] Neurology [address] [address] Randy Maradiaga DO [address] [place] [address] 10/09/2024 1:20 PM MANUFACTURERS AGENT Office Visit [facility] Heart [address] [place] [phone] Danna Cardenas PA-C [address] [facility] [place] [id number] 10/15/2024 11:00 AM MANUFACTURERS AGENT Office Visit [facility] [address] [place] [phone] Denise Woodson APRN [facility] [address] [place] [address] 10/30/2024 4:00 PM MANUFACTURERS AGENT Virtual Visit [facility] Vascular [facility] [address] [place] [phone] Lisa Zambrano MD [address] [place] [address] 12/29/2024 12:45 PM CDT Office Visit [facility] [address] [place] [address] [phone] Fabi Coates MD [address] [place] [address] 812285 12/29/2024 1:45 PM CDT Office Visit [facility] [address] [place], [place] [address]e Explorer [address] [phone] Fabi Coates MD [address] [place] [address] 06/01/2025 11:15 AM CDT Appointment [facility] Imaging [address] [place] [phone] Robin Zepeda MD [address] [place], [place] [address] [address] 06/04/2025 11:00 AM CDT Office Visit [facility] Neurosurgery [address] 3rd [place] [phone] Robin Zepeda MD [address] [place] [address] Usha Simon APRN BILLING AND QUALITY TECHNICIAN [address] [place] [address] documented as of this encounter Visit Diagnoses Not on filedocumented in this encounter Additional Health Concerns Infection Onset Date Last Indicated Resolved Time Rule Out COVID-19 09/13/2024 09/13/2024 09/13/2024 12:31 PM MANUFACTURERS AGENT Assessment Noted Time PHQ-9 Depression Total Score: 0 06/23/20 21 4:11 PM CDT documented as of this encounter Care Teams Manager Life Sciences Relationship Specialty Start Date End Date Winston Villatoro OD [facility] [address] [facility] [address] [place] [address] PCP - Ophthalmology Ophthalmology 02/11/13 Denise Woodson APRN BILLING AND QUALITY TECHNICIAN [address] [place] [address] PCP - General Family Practice 09/21/20 Denise Woodson APRN BILLING AND QUALITY TECHNICIAN [address] [place] [address] Assigned PCP 07/17/20 Usha Simon APRN BILLING AND QUALITY TECHNICIAN [address] [place] [address] Nurse Practitioner Neurological Surgery 01/24/24 Dangelo Salinas MD [address] [place] [address] Neurology 01/27/24 Usha Simon APRN BILLING AND QUALITY TECHNICIAN [address] [address] Assigned Neuroscience Provider 02/06/24 03/07/24 Anastasia Stearns, RN Lead Security Escort 02/06/24 Germaine Lopez, W Community Health Worker Primary Care - CC 02/18/24 Robin Zepeda MD [address] [address] Assigned Neuroscience Provider 03/08/24 05/07/24 Lisa Zambrano MD [address] [place] [address] Assigned Heart and Vascular Provider 05/08/24 07/07/24 Raul Hoyos MD [address] [address] Assigned Neuroscience Provider 05/08/24 07/07/24 Joya Lira RPH [address] [place] [address] Pharmacist Pharmacist 05/25/24 Joya Lira RPH [address] [place] [address] Assigned MTM Pharmacist 06/08/24 Fabi Coates MD [address] [place] [address] 75 [place] [address] Genetics, Clinical 06/18/24 Robin Zepeda MD 9 [facility] [id number] [place] [address] Assigned Neuroscience Provider 07/08/24 08/07/24 Danna Cardenas PA-C [address]405 [place] [address] Assigned Heart and Vascular Provider 07/08/24 Felicita Desai RN Lead Security Escort 07/14/24 07/28/24 Arthur Salas, [facility] [address] [place] [address] Assigned Behavioral Health Provider 08/08/24 Randy Maradiaga DO [address] [place] [address] Assigned Neuroscience Provider 08/08/24 documented as of this encounter
--- OUTSIDE RECORDS SUMMARY | 2024-09-20 18:10 | XMS_ITS | Encounter Summary ---
Author Organization [facility] Address [address] [place] [address] Care Team Providers Care Lens Examiner Name Role Phone Winston Villatoro OD Unavailable [phone] Denise Woodson APRN FINISHER BRUSH Unavailable [phone] Denise Woodson APRN FINISHER BRUSH Primary Care Provider Usha Simon APRN FINISHER BRUSH Unavailable Dangelo Salinas MD Unavailable Usha Simon APRN FINISHER BRUSH Unavailable Anastasia Stearns RN Unavailable [phone] Germaine Lopez CH Unavailable [phone] Robin Zepeda MD Unavailable [phone] Lisa Zambrano MD Unavailable Raul Hoyos MD Unavailable Joya Lira RP Unavailable [phone] Joya Lira RPJoleen Unavailable Fabi Coates MD Unavailable [phone] Robin Zepeda MD Unavailable [phone] Danna Cardenas PA-C Unavailable [phone] Felicita Desai RN Unavailable Unavailab Arthur Rios [facility] Unavailable Randy Maradiaga DO Unavailable + Encounter Details Date Type Department Care Team (Late st Contact Info) Description 01/29/2024 MyC Medical Advice [address] [phone] Danya Restrepo, INTERNET ARCHITECT Social History Tobacco Use Types Packs/Day Years [...] on file Legal Sex 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 RECAPPER Gender Identity Not on file Sexual Orientation Not on file 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 Not on file Not on file Not on file Not on file Not on file documented as of this encounter Plan of Treatment Upcoming Encounters Date Type Department Care Team (Late st Contact Info) Description 09/25/2024 11:00 AM RECAPPER Office Visit [facility] [address] [place] [address] Denise Woodson APRN [facility] [address] [place], [place] [phone] 09/29/2024 9:00 AM RECAPPER Virtual Visit [facility] Neurology Clinic [address] 3rd [place] [address] Randy Maradiaga, [address] [place] [address] 10/09/2024 1:20 PM RECAPPER Office Visit [facility] Clinic [place] [phone] [place] [phone] Danna Cardenas PA-C [address] [facility] [place] [address] 10/15/2024 11:00 AM RECAPPER Office Visit [facility] [address] [place] [phone] Denise Woodson, [facility] [address] [place] [address] 10/30/2024 4:00 PM RECAPPER Virtual Visit [facility] Vascular [facility] [address] [place] [phone] Lisa Zambrano MD [address] [place] [address] 12/29/2024 12:45 PM CDT Office Visit [facility] Pediatric Specialty Clinic [address] [place], [place] [address] [address] [phone] Fabi Coates MD [address] [place] [address] 331245 12/29/2024 1:45 PM CDT Office Visit [facility] Pediatric Specialty Clinic [address] [place], [place] [address]e Explorer [address] [phone] Fabi Cotaes MD [address] [place] [address] 760635 06/01/2025 11:15 AM CDT Appointment [facility] Imaging [address] [facility] [address] [place] [phone] Robin Zepeda MD [address] [place] [address] [address] 06/04/2025 11:00 AM CDT Office Visit [facility] Neurosurgery [address] 3rd [place] [phone] Robin Zepeda MD [address] [place] [address] Usha Simon APRN FINISHER BRUSH [address] [place] [address] documented as of this encounter Visit Diagnoses Not on filedocumented in this encounter Additional Health Concerns Infection Onset Date Last Indicated Resolved Time Rule Out COVID-19 09/13/2024 09/13/2024 09/13/2024 12:31 PM RECAPPER Assessment Noted Time PHQ-9 Depression Total Score: 0 06/23/20 21 4:11 PM CDT documented as of this encounter Care Teams Lens Examiner Relationship Specialty Start Date End Date Winston Villatoro OD [place] [address] [facility] [address] [place] [address] PCP - Ophthalmology Ophthalmology 02/11/13 Denise Woodson APRN FINISHER BRUSH [address] [place] [address] PCP - General Family Practice 09/21/20 Denise Woodson APRN FINISHER BRUSH [address] [place] [address] Assigned PCP 07/17/20 Usha Simon APRN FINISHER BRUSH [address] [place] [address] Nurse Practitioner Neurological Surgery 01/24/24 Dangelo Salinas MD [address] [place] [address] Neurology 01/27/24 Usha Simon APRN FINISHER BRUSH [address] [address] Assigned Neuroscience Provider 02/06/24 03/07/24 Anastasia Stearns, RN Lead Electrical Controls Engineer 02/06/24 Germaine Lopez, W Community Health Worker Primary Care - CC 02/18/24 Robin Zepeda MD [address] [address] Assigned Neuroscience Provider 03/08/24 05/07/24 Lisa Zambrano MD [address] [place] [address] Assigned Heart and Vascular Provider 05/08/24 07/07/24 Raul Hoyos MD [address] [address] Assigned Neuroscience Provider 05/08/24 07/07/24 Joya Lira RPH [address] [place] [address] Pharmacist Pharmacist 05/25/24 Joya Lira RPH [address] [place] [address] Assigned MTM Pharmacist 06/08/24 Fabi Coates MD [address] [place] [address] 75 [place] [address] Genetics, Clinical 06/18/24 Robin Zepeda MD 9 [facility] [id number] [place] [address] Assigned Neuroscience Provider 07/08/24 08/07/24 Danna Cardenas PA-C 6405 [place] [address] Assigned Heart and Vascular Provider 07/08/24 Felicita Desai RN Lead Electrical Controls Engineer 07/14/24 07/28/24 Arthur Salas [facility] [address] [place] [address] Assigned Behavioral Health Provider 08/08/24 Radny Maradiaga DO [address] [place] [address] Assigned Neuroscience Provider 08/08/24 documented as of this encounter
--- OUTSIDE RECORDS SUMMARY | 2024-09-20 18:10 | XMS_ITS | Encounter Summary ---
Author Organization [facility] Address [address] [place] [address] Care Team Providers Care Chip Silo Tender Name Role Phone Yung Madrigal MD Unavailable Unavailable Winston Villatoro OD Unavailable [phone] Denise Woodson APRN OUTSIDE PARTS SALES Unavailable [phone] Denise Woodson APRN OUTSIDE PARTS SALES Primary Care Provider Usha Simon APRN OUTSIDE PARTS SALES Unavailable [phone] Dangelo Salinas MD Unavailable Usha Simon APRN OUTSIDE PARTS SALES Unavailable Anastasia Stearns RN Unavailable Germaine Lopez CHW Unavailable Robin Zepeda MD Unavailable Lisa Zambrano MD Unavailable Raul Hoyos MD Unavailable Joya Lira [facility] Unavailable Joya Lira Joleen Unavailable [phone] Fabi Coates MD Unavailable [phone] Robin Zepeda MD Unavailable Danna Cardenas PA-C Unavailable Felicita Desai RN Unavailable Unavailab Arthur Rios Unavailable [phone] JefRandy oneill Unavailable + Reason for Visit * Reason Onset Date Comments Medication Request 04/20/2021 escitalopram (LEXAPRO) 10 MG tablet Encounter Details Date Type Department Care Team (Late st Contact Info) Description 04/20/2021 MyC Medical Advice [facility] [address] [place] [address] Denise Woodson APRN [facility] [address] [place] [address] Medication Request (escitalopram (LEXAPRO)... 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 6405 [facility] [address] [place] [phone] Danna Cardenas PA-C 6405 [place] [address] 10/15/2024 11:00 AM SEMICONDUCTOR WAFERS SAW OPERATOR [facility] [address] [place] [address] Denise Woodson APRN [employer]SIDE [employer]S SALES [address] [place], [place] 0700[address] 10/30/2024 4:00 PM SEMICONDUCTOR WAFERS SAW OPERATOR Virtual Visit [facility] Vascular Clinic [place] [address] [place] [phone] Lisa Zambrano MD [address] [place], [place] [address] 12/29/2024 12:45 PM CDT Office Visit [facility] [address] [place] [address] Ave [address] [phone] Fabi Coates MD [address] [place] [address] 321855 12/29/2024 1:45 PM CDT Office Visit [facility] Pediatric Specialty Clinic [address] [place] [address] Ave [address] [phone] Fabi Coates MD [address] [place] [address] [phone] 06/01/2025 11:15 AM CDT Appointment [facility] Imaging [address] [facility] [address] [place] [address] Robin Zepeda MD [address] [place] [address] 06/04/2025 11:00 AM CDT Office Visit [facility] Neurosurgery Clinic [address] 3rd [place] [phone] Robin Zepeda MD [address] [place] [address] Usha Simon APRN OUTSIDE PARTS SALES [address] [place] [address] documented as of this encounter Visit Diagnoses Diagnosis Generalized anxiety disorder Mild recurrent major depression (H) Major depressive disorder, recurrent episode, mild documented in this encounter Additional Health Concerns Infection Onset Date Last Indicated Resolved Time Rule Out COVID-19 09/13/2024 09/13/2024 09/13/2024 12:31 PM SEMICONDUCTOR WAFERS SAW OPERATOR Assessment Noted Time PHQ-9 Depression Total Score: 0 01/05/20 21 9:31 AM CDT documented as of this encounter Care Teams Chip Silo Tender Relationship Specialty Start Date End Date Yung Madrigal MD RETIRED PCP - Orthopaedics Orthopedics 08/26/12 01/20/24 Winston Villatoro OD [facility] [place] [address] [place] [id number] PCP - Ophthalmology Ophthalmology 02/11/13 Denise Woodson APRN OUTSIDE PARTS SALES [address] [place] [address] PCP - General Family Practice 09/21/20 Denise Woodson APRN OUTSIDE [employer]S SALES [address] [place] [address] Assigned PCP 07/17/20 Usha Simon APRN OUTSIDE PARTS SALES [address] [address] Nurse Practitioner Neurological Surgery 01/24/24 Dangelo Salinas MD [address] [place] [address] Neurology 01/27/24 Usha Simon APRN OUTSIDE PARTS SALES [address] [place] [address] Assigned Neuroscience Provider 02/06/24 03/07/24 Anastasia Stearns, RN Lead Paper Cup Machine Tender 02/06/24 Germaine Lopez, W Community Health Worker Primary Care - CC 02/18/24 Robin Zepeda MD [address] [address] Assigned Neuroscience Provider 03/08/24 05/07/24 Lisa Zambrano MD [address] [place] [address] Assigned Heart and Vascular Provider 05/08/24 07/07/24 Raul Hoyos MD 9 [facility] [place] [address] Assigned Neuroscience Provider 05/08/24 07/07/24 Joya Lira [facility] [address] [place] [address] Pharmacist Pharmacist 05/25/24 Joya Lira [facility] [address] [place] [address] Assigned MTM Pharmacist 06/08/24 Fabi Coates MD [address] [place] [address] 75 [place] [address] Genetics, Clinical 06/18/24 Robin Zepeda MD [address] [place] [address] [address] Assigned Neuroscience Provider 07/08/24 08/07/24 Danna Cardenas PA-C 6405 [place] [address] Assigned Heart and Vascular Provider 07/08/24 Felicita Desai RN Lead Paper Cup Machine Tender 07/14/24 07/28/24 Arthur Salas, [facility] [address] [place] [address] Assigned Behavioral Health Provider 08/08/24 Randy Maradiaga DO [address] [place] [address] Assigned Neuroscience Provider 08/08/24 documented as of this encounter
--- OUTSIDE RECORDS SUMMARY | 2024-09-20 18:10 | XMS_ITS | Encounter Summary ---
Author Organization [facility] Address [address] [place] [address] Care Team Providers Care Land Manager Name Role Phone Yung Madrigal MD Unavailable Unavailable Winston Villatoro OD Unavailable [phone] Denise Woodson APRN SHIFT SUPERINTENDENT Unavailable [phone] Denise Woodson APRN SHIFT SUPERINTENDENT Primary Care Provider Usha Simon APRN SHIFT SUPERINTENDENT Unavailable [phone] Dangelo Salinas MD Unavailable Usha Simon APRN SHIFT SUPERINTENDENT Unavailable Anastasia Stearns RN Unavailable Germaine Lopez CHW Unavailable Robin Zepeda MD Unavailable [phone] Lisa Zambrano MD Unavailable Raul Hoyos MD Unavailable Joya Lira [facility] Unavailable Joya Lira Joleen Unavailable Fabi Coates MD Unavailable [phone] Robin Zepeda MD Unavailable Danna Cardenas PA-C Unavailable Felicita Desai RN Unavailable Unavailab Arthur Rios [facility] Unavailable [phone] Randy Maradiaga DO Unavailable + Reason for Visit * Reason Onset Date Comments MyChart Communication 06/08/2021 Abdominal pain Encounter Details Date Type Department Care Team (Late st Contact Info) Description 06/08/[address] 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 [address] [place] [address] Denise Woodson, BARRERA SHIFT SUPERINTENDENT [address] [place] [address] 09/29/2024 9:00 AM QUILT SEWER Virtual Visit [facility] Neurology [address] 3rd [place] [address] Randy Maradiaga, [address] [place] [address] 10/09/2024 1:20 PM QUILT SEWER Office Visit [facility] Heart [facility] 6405 [facility] [address] [place] [phone] Danna Cardenas PA-C 6405 [place], [place] [address] 10/15/2024 11:00 AM QUILT SEWER [facility] [address] [place] [phone] Denise Woodson APRN SHIFT SUPERINTENDENT [address] [place], [place] [address] 10/30/2024 4:00 PM QUILT SEWER Virtual Visit [facility] Vascular [facility] [address] [place] [phone] Lisa Zambrano MD [address] [place], [place] [address] 12/29/2024 12:45 PM CDT Office Visit [facility] [address] [place] [phone] Fabi Coates MD [address] [place] [address] 12/29/2024 1:45 PM CDT Office Visit [facility] [address] [place] [phone] Fabi Coates MD [address] [place] [address] 06/01/2025 11:15 AM CDT Appointment [facility] Specialty Care [facility] Imaging [address] [place] [phone] Robin Zepeda MD [address] [place] [address] 06/04/2025 11:00 AM CDT Office Visit [facility] Neurosurgery Clinic [address] 3rd [place] [phone] Robin Zepeda MD [address] [place] [address] Usha Simon APRN SHIFT SUPERINTENDENT [address] [place] [address] documented as of this encounter Visit Diagnoses Not on filedocumented in this encounter Additional Health Concerns Infection Onset Date Last Indicated Resolved Time Rule Out COVID-19 09/13/2024 09/13/2024 09/13/2024 12:31 PM QUILT SEWER Assessment Noted Time PHQ-9 Depression Total Score: 0 01/05/20 9:31 AM CDT documented as of this encounter Care Teams Land Manager Relationship Specialty Start Date End Date Yung Madrigal MD RETIRED PCP - Orthopaedics Orthopedics 08/26/12 01/20/24 Winston Villatoro OD [facility] [place] [address] [place] [address] PCP - Ophthalmology Ophthalmology 02/11/13 Denise Woodson APRN SHIFT SUPERINTENDENT [address] [place] [address] PCP - General Family Practice 09/21/20 Denise Woodson APRN SHIFT SUPERINTENDENT [address] [address] [place] [address] Assigned PCP 07/17/20 Usha Simon APRN SHIFT SUPERINTENDENT [address] [address] Nurse Practitioner Neurological Surgery 01/24/24 Dangelo Salinas MD [address] [place] [address] Neurology 01/27/24 Usha Simon APRN SHIFT SUPERINTENDENT [address] [place] [address] Assigned Neuroscience Provider 02/06/24 03/07/24 Anastasia Stearns, RN Lead Button Station Worker 02/06/24 Germaine Lopez, W Community Health Worker Primary Care - CC 02/18/24 Robin Zepeda MD [address] [place] [address] Assigned Neuroscience Provider 03/08/24 05/07/24 Lisa Zambrano MD [address] [place] [address] Assigned Heart and Vascular Provider 05/08/24 07/07/24 Raul Hoyos MD [address] [place] [address] Assigned Neuroscience Provider 05/08/24 07/07/24 Joya Lira [facility] [address] [place] [address] Pharmacist Pharmacist 05/25/24 Joya Lira Joleen [address] [place] [address] Assigned MTM Pharmacist 06/08/24 Fabi Coates MD [address] [place] [address] 75 [place], [place] 6[address] Genetics, Clinical 06/18/24 Robin Zepeda MD [address] [place] [address] [id number] [place], [place] 745695 Assigned Neuroscience Provider 07/08/24 08/07/24 Danna Cardenas PA-C [address] [place] [address] Assigned Heart and Vascular Provider 07/08/24 Felicita Desai, RN Lead Button Station Worker 07/14/24 07/28/24 Arthur Salas, [facility] [address] [place] [address] Assigned Behavioral Health Provider 08/08/24 Randy Maradiaga DO [address] [place] [address] 568315 Assigned Neuroscience Provider 08/08/24 documented as of this encounter
--- OUTSIDE RECORDS SUMMARY | 2024-09-20 18:10 | XMS_ITS | Encounter Summary ---
Author Organization [facility] Address [address] [place] [address] Care Team Providers Care Open Hearth Furnace Laborer Name Role Phone Yung Madrigal MD Unavailable Unavailable Winston Villatoro OD Unavailable [phone] Denise Woodson APRN METEOROLOGICAL EQUIPMENT REPAIRER Unavailable [phone] Denise Woodson APRN METEOROLOGICAL EQUIPMENT REPAIRER Primary Care Provider Usha Simon APRN METEOROLOGICAL EQUIPMENT REPAIRER Unavailable [phone] Dangelo Salinas MD Unavailable Usha Simon APRN METEOROLOGICAL EQUIPMENT REPAIRER Unavailable Anastasia Stearns RN Unavailable Germaine Lopez CHW Unavailable [phone] Robin Zepeda MD Unavailable [phone] Lisa Zambrano MD Unavailable Raul Hoyos MD Unavailable [phone] Joya Lira [facility] Unavailable [phone] Joya Lira Joleen Unavailable Fabi Coates MD Unavailable [phone] Robin Zepeda MD Unavailable Danna Cardenas PA-C Unavailable [phone] Felicita Desai RN Unavailable Unavailab Arthur Rios Unavailable [phone] JefRandy oneill Unavailable + Encounter Details Date Type Department Care Team (Late st Contact Info) Description 06/13/2021 MyC Medical Advice [facility] [address] [place] [address] Denise Woodson APRN [facility] [address] [place] [address] Insomnia, unspecified type Social History [...] on file Legal Sex 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 MAGNETIC LOCATER Gender Identity Not on file Sexual Orientation Not on file 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 They stated they do not have a refill on file. Prescription approved per [facility] protocol. Mary Caraballo RN on 06/13/2021 at 5:18 PM documented in this encounter Plan of Treatment Upcoming Encounters Date Type Department Care Team (Late st Contact Info) Description 09/25/2024 11:00 AM MAGNETIC LOCATER Office Visit [facility] [address] [place] [address] Denise Woodson, MEDICAL SCIENTIFIC OFFICER METEOROLOGICAL EQUIPMENT REPAIRER [address] [place] [address] 09/29/2024 9:00 AM MAGNETIC LOCATER Virtual Visit [facility] Neurology [facility] 909 [facility] 3rd [place] [phone] Randy Maradiaga, [address] [address] 10/09/2024 1:20 PM MAGNETIC LOCATER Office Visit [facility] Heart [facility] 6405 [facility] [address] [place] [phone] Danna Cardenas PA-C 6405 [place], [place] 3467[address] 10/15/2024 11:00 AM MAGNETIC LOCATER Office Visit [facility] [address] [place] [phone] Denise Woodson, BARRERA METEOROLOGICAL EQUIPMENT REPAIRER [address] [place] [address] 10/30/2024 4:00 PM MAGNETIC LOCATER Virtual Visit [facility] Vascular [facility] [address] [place] [phone] Lisa Zambrano MD [address] [place] [address] 12/29/2024 12:45 PM CDT Office Visit [facility] [address] [facility] [address],[place] [phone] Fabi Coates MD [address] [facility] [address] [place], [place] [address] 12/29/2024 1:45 PM CDT Office Visit [facility] 2450 [facility] Explorer [facility] [address],[place] [phone] Fabi Coates MD [address] [facility] 75 [place] [address] 06/01/2025 11:15 AM CDT Appointment [facility] Specialty Care Center Imaging [address] [place] [phone] Robin Zepeda MD [address] [place] [address]79[address] 06/04/2025 11:00 AM CDT Office Visit [facility] Neurosurgery [address] 3rd [place] [phone] Robin Zepeda MD [address] [place] [address] Usha Simon APRN [address] [address] documented as of this encounter Visit Diagnoses Diagnosis Insomnia, unspecified type documented in this encounter Additional Health Concerns Infection Onset Date Last Indicated Resolved Time Rule Out COVID-19 09/13/2024 09/13/2024 09/13/2024 12:31 PM MAGNETIC LOCATER Assessment Noted Time PHQ-9 Depression Total Score: 0 01/05/20 21 9:31 AM CDT documented as of this encounter Care Teams Open Hearth Furnace Laborer Relationship Specialty Start Date End Date Yung Madrigal MD RETIRED PCP - Orthopaedics Orthopedics 08/26/12 01/20/24 Winston Villatoro OD [facility] [place] [address] [place] [address] [address] [place] [address] PCP - Ophthalmology Ophthalmology 02/11/13 Denise Woodson APRN METEOROLOGICAL EQUIPMENT REPAIRER [address] [place] [address] PCP - General Family Practice 09/21/20 Denise Woodson APRN METEOROLOGICAL EQUIPMENT REPAIRER [address] [place] [address] Assigned PCP 07/17/20 Usha Simon APRN METEOROLOGICAL EQUIPMENT REPAIRER [address] [place] [address] Nurse Practitioner Neurological Surgery 01/24/24 Dangelo Salinas MD [address] [facility] [address] [place] [address] Neurology 01/27/24 Usha Simon APRN METEOROLOGICAL EQUIPMENT REPAIRER [address] [address] Assigned Neuroscience Provider 02/06/24 03/07/24 Anastasia Stearns, RN Lead Temporary Data Entry Clerk 02/06/24 Germaine Lopez, CHW Community Health Worker Primary Care - CC 02/18/24 Robin Zepeda MD [address] [address] Assigned Neuroscience Provider 03/08/24 05/07/24 Lisa Zambrano MD 6[address] [facility] [address] [place] [address] Assigned Heart and Vascular Provider 05/08/24 07/07/24 Raul Hoyos MD [address] [facility] [address] Assigned Neuroscience Provider 05/08/24 07/07/24 Joya Lira [facility] [address] [place] [address] Pharmacist Pharmacist 05/25/24 Joya Lira [facility] [address] [place] [address] Assigned MTM Pharmacist 06/08/24 Fabi Coates MD [address] [facility] 75 [place] [address] Genetics, Clinical 06/18/24 Robin Zepeda MD 909 [facility] [address] Assigned Neuroscience Provider 07/08/24 08/07/24 Danna Cardenas PA-C 6405 [place] [address] Assigned Heart and Vascular Provider 07/08/24 Felicita Desai, RN Lead Temporary Data Entry Clerk 07/14/24 07/28/24 Arthur Salas, [facility] [address] [place] [address] Assigned Behavioral Health Provider 08/08/24 Randy Maradiaga DO [address] [place] [address] Assigned Neuroscience Provider 08/08/24 documented as of this encounter
--- OUTSIDE RECORDS SUMMARY | 2024-09-20 18:10 | XMS_ITS | Encounter Summary ---
Author Organization [facility] Address [address] [place] [address] Care Team Providers Care Shoe Dyer Name Role Phone Yung Madrigal MD Unavailable Unavailable Winston Villatoro OD Unavailable [phone] Denise Woodson APRN FINISHER HAND Unavailable [phone] Denise Woodson APRN FINISHER HAND Primary Care Provider Usha Simon APRN FINISHER HAND Unavailable [phone] Dangelo Salinas MD Unavailable Usha Simon APRN FINISHER HAND Unavailable Anastasia Stearns RN Unavailable Germaine Lopez CHW Unavailable Robin Zepead MD Unavailable Lisa Zambrano MD Unavailable Raul Hoyos MD Unavailable Joya Lira [facility] Unavailable [phone] Joya Lira Joleen Unavailable Fabi Coates MD Unavailable [phone] Robin Zepeda MD Unavailable Danna Cardenas PA-C Unavailable [phone] Felicita Desai RN Unavailable Unavailab Arthur Rios Unavailable JefRandy oneill Unavailable + Reason for Visit * Reason Onset Date Comments URI 09/21/2020 Encounter Details Date Type Department Care Team (Late st Contact Info) Description 09/21/2020 [facility]C [facility] [address] [place] [address] Denise Woodson, BARRERA FINISHER HAND [address] [place] [address] URI Social History Tobacco Use Types Packs/Day Years Used Date Smoking Tobacco: Never Smokeless Tobacco: Never Alcohol Use Standard Drinks/Week Comments Yes 0 (1 standard drink = 0.6 oz pur e alcohol) minimal PHQ-2 Answer Date Recorded PHQ-2 Score 2 07/13/2020 Comments No Sex and Gender Information Value Date Recorded Sex Assigned at Not on file Legal Sex 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 COMMERCIAL GREEN RETROFIT ARCHITECT Gender Identity Not on file Sexual Orientation Not on file 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 No / Unsure 09/21/2020 12:04 PM COMMERCIAL GREEN RETROFIT ARCHITECT documented as of this encounter Miscellaneous Notes * Telephone Encounter - Kati Yang RN - 09/21/2020 10:54 AM CST [employer] message sent to patient. Kati Yang RN ERCIAL GREEN RETROFIT ARCHITECT documented in this encounter Plan of Treatment Upcoming Encounters Date Type Department Care Team (Late st Contact Info) Description 09/25/2024 11:00 AM COMMERCIAL GREEN RETROFIT ARCHITECT [facility] [address] [place] [address] Denise Woodson, BARRERA FINISHER HAND [address] [place] [address] 09/29/2024 9:00 AM COMMERCIAL GREEN RETROFIT ARCHITECT Virtual Visit [facility] Neurology [facility] 909 [facility] 3rd [place] [phone] Randy Maradiaga, [address] [address] 10/09/2024 1:20 PM COMMERCIAL GREEN RETROFIT ARCHITECT Office Visit [facility] 6[address] [facility] [address] [place] [phone] Danna Cardenas PA-C 6405 [place], [place] [address] 10/15/2024 11:00 AM COMMERCIAL GREEN RETROFIT ARCHITECT Office Visit [facility] [address] [place] [phone] Denise Woodson, BARRERA FINISHER HAND [address] [place] [address] 10/30/2024 4:00 PM COMMERCIAL GREEN RETROFIT ARCHITECT Virtual Visit [facility] Vascular Clinic [place] [address] [place] [phone] Lisa Zambrano MD [address] [place] [address] 12/29/2024 12:45 PM CDT Office Visit [facility] 2450 [facility] Explorer [facility] [address],[place] [phone] Fabi Coates MD 420 [facility] 75 [place], [place] [address] 12/29/2024 1:45 PM CDT Office Visit [facility]ty [facility] 2450 [facility] Explorer [facility] [address],[place] [phone] Fabi Coates MD 420 [facility] 75 [place] [address] 06/01/2025 11:15 AM CDT Appointment [facility] Specialty Care Center Imaging [address] [place] [phone] Robin Zepeda MD [address] [place] [address] 06/04/2025 11:00 AM CDT Office Visit [facility] Neurosurgery [address] 3rd [place] [phone] Robin Zepeda MD [address] [place] [address] Usha Simon APRN [address] [address] documented as of this encounter Visit Diagnoses Not on filedocumented in this encounter Additional Health Concerns Infection Onset Date Last Indicated Resolved Time Rule Out COVID-19 09/13/2024 09/13/2024 09/13/2024 12:31 PM COMMERCIAL GREEN RETROFIT ARCHITECT Assessment Noted Time PHQ-9 Depression Total Score: 0 06/15/20 19 7:09 PM CDT documented as of this encounter Care Teams Shoe Dyer Relationship Specialty Start Date End Date Yung Madrigal MD RETIRED PCP - Orthopaedics Orthopedics 08/26/12 01/20/24 Winston Villatoro OD [facility] [place] [address] [place] [address] 95 [place] [address] PCP - Ophthalmology Ophthalmology 02/11/13 Denise Woodson APRN FINISHER HAND [address] [place] [address] PCP - General Family Practice 09/21/20 Denise Woodson APRN FINISHER HAND [address] [place] [address] Assigned PCP 07/17/20 Usha Simon APRN FINISHER HAND [address] [place] [address] Nurse Practitioner Neurological Surgery 01/24/24 Dangelo Salinas MD [address] [facility] [address] [place] [address] Neurology 01/27/24 Usha Simon APRN FINISHER HAND [address] [address] Assigned Neuroscience Provider 02/06/24 03/07/24 Anastasia Stearns, RN Lead Pelt Salter 02/06/24 Germaine Lopez, CHW Community Health Worker Primary Care - CC 02/18/24 Robin Zepeda MD [address] [address] Assigned Neuroscience Provider 03/08/24 05/07/24 Lisa Zambrano MD 6405 [facility] [address] [place] [address] Assigned Heart and Vascular Provider 05/08/24 07/07/24 Raul Hoyos MD 909 [facility] [address] Assigned Neuroscience Provider 05/08/24 07/07/24 Joya Lira [facility] [address] [place] [address] Pharmacist Pharmacist 05/25/24 Joya Lira [facility] [address] [place] [address] Assigned MTM Pharmacist 06/08/24 Fabi Coates MD 420 [facility] 75 [place] [address] Genetics, Clinical 06/18/24 Robin Zepeda MD 909 [facility]2121[place], [place] [address] Assigned Neuroscience Provider 07/08/24 08/07/24 Danna Cardenas PA-C 6405 [place] [address] Assigned Heart and Vascular Provider 07/08/24 Felicita Desai, RN Lead Pelt [place] 07/14/24 07/28/24 Arthur Salas, [facility] [address] [place] [address] Assigned Behavioral Health Provider 08/08/24 Randy Maradiaga DO [address] [place] [address] Assigned Neuroscience Provider 08/08/24 documented as of this encounter
--- OUTSIDE RECORDS SUMMARY | 2024-09-20 18:10 | XMS_ITS | Encounter Summary ---
Author Organization [facility] Address [address] [place] [address] Care Team Providers Care Mail Examiner Name Role Phone Yung Madrigal MD Unavailable Unavailable Winston Villatoro OD Unavailable [phone] Denise Woodson APRN KNIFEMAN Unavailable [phone] Denise Woodson APRN KNIFEMAN Primary Care Provider Usha Simon APRN KNIFEMAN Unavailable [phone] Dangelo Salinas MD Unavailable Usha Simon APRN KNIFEMAN Unavailable Anastasia Stearns RN Unavailable [phone] Germaine Lopez CHW Unavailable Robin Zepeda MD Unavailable [phone] Lisa Zambrano MD Unavailable Raul Hoyos MD Unavailable Joya Lira [facility] Unavailable Joya Lira Joleen Unavailable Fabi Coates MD Unavailable [phone] Robin Zepeda MD Unavailable Danna Cardenas PA-C Unavailable Felicita Desai RN Unavailable Unavailab Arthur RiosSW Unavailable [phone] Randy Maradiaga DO Unavailable + Encounter Details Date Type Department Care Team (Late st Contact Info) Description 12/30/2020 MyC Medical Advice [facility] [address] [place] [address] Jessica Phipps, CORK FLOOR INSTALLER Social History Tobacco Use Types Packs/Day Years Used Date Smoking Tobacco: Never Smokeless Tobacco: Never Alcohol Use Standard Drinks/Week Comments Yes 0 (1 standard drink = 0.6 oz pur e alcohol) minimal PHQ-2 Answer Date Recorded PHQ-2 Score 2 07/13/2020 Comments No Sex and Gender Information Value Date Recorded Sex Assigned at Not on file Legal Sex 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 HEEL GOUGER Gender Identity Not on file Sexual Orientation Not on file 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 Not on file Not [...] Department Care Team (Late Contact Info) Description 09/25/2024 11:00 AM HEEL GOUGER Office Visit [facility] [address] [place] [address] Denise Woodson APRN KNIFEMAN [address] [place] [address] 09/29/2024 9:00 AM HEEL GOUGER Virtual Visit [facility] Neurology Clinic [address] 3rd [place] [address] Randy Maradiaga, [address] [place] [phone] 10/09/2024 1:20 PM HEEL GOUGER Office Visit [facility] Heart [facility] 6405 [facility] [address] [place] [phone] Danna Cardenas PA-C 6405 [facility] [place] [address] 10/15/2024 11:00 AM HEEL GOUGER [facility] [address] [place] [phone] Denise Woodson, BARRERA KNIFEMAN [address] [place], [place] [phone] 10/30/2024 4:00 PM HEEL GOUGER Virtual Visit [facility] Vascular [facility] [address] [place] [phone] Lisa Zambrano MD [address] [place] [address] 12/29/2024 12:45 PM CDT Office Visit [facility] [address] [place], [place] [address]e Explorer [address] [phone] Fabi Coates MD [address] [place] [address] 12/29/2024 1:45 PM CDT Office Visit [facility] [address] [place] [address] [phone] Fabi Coates MD [address] [place] [address] 06/01/2025 11:15 AM CDT Appointment [facility] Imaging [address] [facility] [address] [place] [address] Robin Zepeda MD [address] [place] [address] 06/04/2025 11:00 AM CDT Office Visit [facility] Neurosurgery [address] 3rd [place] [address] Robin Zepeda MD [address] [place] [address] Usha Simon APRN KNIFEMAN [address] [place] [address] documented as of this encounter Visit Diagnoses Not on filedocumented in this encounter Additional Health Concerns Infection Onset Date Last Indicated Resolved Time Rule Out COVID-19 09/13/2024 09/13/2024 09/13/2024 12:31 PM HEEL GOUGER Assessment Noted Time PHQ-9 Depression Total Score: 0 06/15/20 19 7:09 PM CDT documented as of this encounter Care Teams Mail Examiner Relationship Specialty Start Date End Date Yung Madrigal MD RETIRED PCP - Orthopaedics Orthopedics 08/26/12 01/20/24 Winston Villatoro, [facility] [address] [facility] [address] [place] [address] PCP - Ophthalmology Ophthalmology 02/11/13 Denise Woodson APRN KNIFEMAN [address] [address] [address] PCP - General Family Practice 09/21/20 Denise Woodson APRN KNIFEMAN [address] [address] [place] [address] Assigned PCP 07/17/20 Usha Simon APRN KNIFEMAN [address] [address] Nurse Practitioner Neurological Surgery 01/24/24 Dangelo Salinas MD [address] [place] [address] Neurology 01/27/24 Usha Simon APRN KNIFEMAN [address] [place] [address] Assigned Neuroscience Provider 02/06/24 03/07/24 Anastasia Stearns, RN Lead River Rat 02/06/24 Germaine Lopez, W Community Health Worker Primary Care - CC 02/18/24 Robin Zepeda MD [address] [address] Assigned Neuroscience Provider 03/08/24 05/07/24 Lisa Zambrano MD [address] [place] [address] Assigned Heart and Vascular Provider 05/08/24 07/07/24 Raul Hoyos MD [address] [address] Assigned Neuroscience Provider 05/08/24 07/07/24 Joya Lira [facility] [address] [place] [address] Pharmacist Pharmacist 05/25/24 Soraya Joya [facility] [address] [place] [address] Assigned MTM Pharmacist 06/08/24 Fabi Coates MD [address] [place] [address] 75 [place] [address] Genetics, Clinical 06/18/24 Robin Zepeda MD [address] [facility] [id number] [place] [address] Assigned Neuroscience Provider 07/08/24 08/07/24 Danna Cardenas PA-C 6405 [place] [address] Assigned Heart and Vascular Provider 07/08/24 Felicita Desai, RN [place] 07/14/24 07/28/24 Arthur Salas, [facility] [address] [place] [address] Assigned Behavioral Health Provider 08/08/24 Randy Maradiaga DO 909 [place], [place] [address] Assigned Neuroscience Provider 08/08/24 documented as of this encounter
--- OUTSIDE RECORDS SUMMARY | 2024-09-20 18:10 | XMS_ITS | Encounter Summary ---
Author Organization [facility] Address [address] [place] [address] Care Team Providers Care Room Cooler Installer Name Role Phone Yung Madrigal MD Unavailable Unavailable Winston Villatoro OD Unavailable [phone] Denise Woodson APRN FIRE BOSS Unavailable [phone] Denise Woodson APRN FIRE BOSS Primary Care Provider Usha Simon APRN FIRE BOSS Unavailable [phone] Dangelo Salinas MD Unavailable Usha Simon APRN FIRE BOSS Unavailable Anastasia Stearns RN Unavailable Germaine Lopez CHW Unavailable Robin Zepeda MD Unavailable Lisa Zambrano MD Unavailable Raul Hoyos MD Unavailable [phone] Joya Lira [facility] Unavailable Joya Lira Joleen Unavailable Fabi Coates MD Unavailable [phone] Robin Zepeda MD Unavailable Danna Cardenas PA-C Unavailable [phone] Felicita Desai RN Unavailable Unavailab Arthur Rios Unavailable [phone] JefRandy oneill Unavailable + Reason for Visit * Reason Comments Medication Refill Encounter Details Date Type Department Care Team (Late st Contact Info) Description 02/19/2022 Refill [facility] [place] [address] [place] [address] Denise Woodson, REAL ESTATE PROCESSOR FIRE BOSS [address] [place] [address] Medication Refill Social History Tobacco [...] on file Legal Sex 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 [employer]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 Gender Identity Not on file Sexual [...] st Contact Info) Description 09/25/2024 11:00 AM MIDDLE S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 [facility] [address] [place] [phone] Denise Woodson, BARRERA FIRE BOSS [address] [place], [place] [address] 09/29/2024 9:00 AM [employer] S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 Virtual Visit [facility] Neurology [facility] 909 [facility] 3rd [place] [address] Randy Maradiaga, [address] [address] 10/09/2024 1:20 PM [employer]DLE S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 Office Visit [facility] Heart [facility] 6405 [facility] [address] [place] [phone] Danna Cardenas PA-C 6405 [place], [place] [address] 10/15/2024 11:00 AM MIDDLE S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 Office Visit [facility] [address] [place] [address] Denise Woodson APRN FIRE BOSS [address] [place] [address] 10/30/2024 4:00 PM MIDDLE S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 Virtual Visit [facility] Vascular Clinic [place] [address] [place] [phone] Lisa Zambrano MD [address] [place] [address] 12/29/2024 12:45 PM CDT Office Visit [facility] [facility] [address],[place] [address] Fabi Coates MD 420 [facility] 75 [place], [place] [address] 12/29/2024 1:45 PM CDT Office Visit [facility]ty Clinic 2450 [facility] 12th Fl[address],[place] [address] Fabi Coates MD 420 [facility] 75 [place] [address] 06/01/2025 11:15 AM CDT Appointment [facility] Imaging [address] [address] [place] [address] Robin Zepeda MD [address] [place] [address] 06/04/2025 11:00 AM CDT Office Visit [facility] Neurosurgery [address] 3rd [place] [address] Robin Zepeda MD [address] [place] [address] 966205 Usha Simon APRN [address] [address] documented as of this encounter Visit Diagnoses Diagnosis Moderate persistent asthma without complication Unspecified asthma documented in this encounter Additional Health Concerns Infection Onset Date Last Indicated Resolved Time Rule Out COVID-19 09/13/2024 09/13/2024 09/13/2024 12:31 PM MIDDLE S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 Assessment Noted Time PHQ-9 Depression Total Score: 0 06/23/20 21 4:11 PM CDT documented as of this encounter Care Teams Room Cooler Installer Relationship Specialty Start Date End Date Yung Madrigal MD RETIRED PCP - Orthopaedics Orthopedics 08/26/12 01/20/24 Winston Villatoro OD [facility] [address] [place] [address] PCP - Ophthalmology Ophthalmology 02/11/13 Denise Woodson APRN FIRE BOSS [address] [place] [address] PCP - General Family Practice 09/21/20 Denise Woodson APRN FIRE BOSS [address] [place] [address] Assigned PCP 07/17/20 Usha Simon APRN FIRE BOSS [address] [place] [address] 218425 Nurse Practitioner Neurological Surgery 01/24/24 Dagnelo Salinas MD [address] [place] [address] Neurology 01/27/24 Usha Simon APRN FIRE BOSS [address] [address] Assigned Neuroscience Provider 02/06/24 03/07/24 Anastasia Stearns, RN Lead Finisher Operator 02/06/24 Germaine Lopez, W Community Health Worker Primary Care - CC 02/18/24 Robin Zepeda MD [address] 972375 Assigned Neuroscience Provider 03/08/24 05/07/24 Lisa Zambrano MD 6405 [facility] [address] [place] [address] Assigned Heart and Vascular Provider 05/08/24 07/07/24 Raul Hoyos MD 909 [facility]J [place] [address] Assigned Neuroscience Provider 05/08/24 07/07/24 Joya Lira [facility] [address] [place] [address] Pharmacist Pharmacist 05/25/24 Joya Lira [facility] [address] [place] [address] Assigned MTM Pharmacist 06/08/24 Fabi Coates MD [address] [place] [address] 75 [place], [place] [address] Genetics, Clinical 06/18/24 Robin Zepeda MD 909 [facility] [address] Assigned Neuroscience Provider 07/08/24 08/07/24 Danna Cardenas PA-C 6405 [place] [address] Assigned Heart and Vascular Provider 07/08/24 Felicita Desai, RN Lead Finisher Operator 07/14/24 07/28/24 Arthur Salas [employer] [address] [place] [address] [id number] Assigned Behavioral Health Provider 08/08/24 Randy Maradiaga DO [address] [place] [address] Assigned Neuroscience Provider 08/08/24 documented as of this encounter
--- OUTSIDE RECORDS SUMMARY | 2024-09-20 18:10 | XMS_ITS | Encounter Summary ---
Author Organization [facility] Address [address] [place] [address] Care Team Providers Care Shaper Machine Hand Name Role Phone Winston Villatoro OD Unavailable [phone] Denise Woodson APRN CHEMOTHERAPIST Unavailable [phone] Denise Woodson APRN CHEMOTHERAPIST Primary Care Provider Usha Simon APRN CHEMOTHERAPIST Unavailable Dangelo Salinas MD Unavailable sUha Simon APRN CHEMOTHERAPIST Unavailable Anastasia Stearns RN Unavailable Germaine Lopez CH Unavailable [phone] Robin Zepeda MD Unavailable Lisa Zambrano MD Unavailable Raul Hoyos MD Unavailable [phone] Joya Lira RP Unavailable [phone] Joya Lira RPJoleen Unavailable [phone] Fabi Coates MD Unavailable [phone] Robin Zepeda MD Unavailable [phone] Danna Cardenas PA-C Unavailable [phone] Felicita Desai RN Unavailable Unavailab Arthur Rios [facility] Unavailable [phone] Randy Maradiaga DO Unavailable + Reason for Visit * Reason Onset Date Comments Appointment 01/23/2024 Referral-Stroke hospital follow up Encounter Details Date Type Department Care Team (Late st Contact Info) Description 01/23/2024 Telephone [facility] Neurology Clinic [address] 3rd [place] [address] None Appointment (Referral-Stroke hospital follow [...] on file Legal Sex 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 NUTRITION SERVICES ASSISTANT Gender Identity Not on file Sexual Orientation Not on file 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 Delisa Manuel Ur 5 Med Surg Diagnosis and/or Symptoms: Stroke Please review referral for Stroke as no HFU orders are entered for Stroke follow up. Patient discharged on 01/22/24 from [facility] and is now in Acute Rehab Unit. Action Taken: Message routed to: [facility] Neurology Travel Screening: Not Applicable documented in this encounter Plan of Treatment Upcoming Encounters Date Type Department Care Team (Late st Contact Info) Description 09/25/2024 11:00 AM NUTRITION SERVICES ASSISTANT [facility] [address] [place] [address] Denise Woodson APRN CHEMOTHERAPIST [address] [place], [place] 26[address] 09/29/2024 9:00 AM NUTRITION SERVICES ASSISTANT Virtual Visit [facility] Neurology [facility] 909 [facility] 3rd [place] [phone] Randy Maradiaga, [address] [place] [address] 10/09/2024 1:20 PM NUTRITION SERVICES ASSISTANT Office Visit [facility] Heart [facility] 6405 [facility] [address] [place] [phone] Danna Cardenas PA-C [address] [place] [address] 10/15/2024 11:00 AM NUTRITION SERVICES ASSISTANT Office Visit [facility] [address] [place] [address] Denise Woodson APRN CHEMOTHERAPIST [address] [place] [address] 10/30/2024 4:00 PM NUTRITION SERVICES ASSISTANT Virtual Visit [facility] Vascular Clinic [place] [address] [place] [phone] Lisa Zambrano MD [address] [place] [address] 12/29/2024 12:45 PM CDT Office Visit [facility] [address] Explorer [facility] 12th Flr,[place] [phone] Fabi Coates MD 420 [facility] 75 [place] [address] 12/29/2024 1:45 PM CDT Office Visit [facility] [address] [facility] [address],[place] [address] Fabi Coates MD 420 [facility] 75 [place] [address] 06/01/2025 11:15 AM CDT Appointment [facility] Imaging [address] [place] [phone] Robin Zepeda MD [address] [place] [address] 06/04/2025 11:00 AM CDT Office Visit [facility] Neurosurgery [address] 3rd [place] [address] Robin Zepeda MD [address] [place] [address] 788555 Usha Simon APRN [address] [address] documented as of this encounter Visit Diagnoses Not on filedocumented in this encounter Additional Health Concerns Infection Onset Date Last Indicated Resolved Time Rule Out COVID-19 09/13/2024 09/13/2024 09/13/2024 12:31 PM NUTRITION SERVICES ASSISTANT Assessment Noted Time PHQ-9 Depression Total Score: 0 06/23/20 21 4:11 PM CDT documented as of this encounter Care Teams Shaper Machine Hand Relationship Specialty Start Date End Date Winston Villatoro OD [facility] [place] 701 [facility] [address] [place] [address] PCP - Ophthalmology Ophthalmology 02/11/13 Denise Woodson APRN CHEMOTHERAPIST [address] [place], [place] 4286068 PCP - General Family Practice 09/21/20 Denise Woodson APRN CHEMOTHERAPIST [address] [address] [facility] [place] [address] Assigned PCP 07/17/20 Usha Simon APRN CHEMOTHERAPIST [address] [id number] Nurse Practitioner Neurological Surgery 01/24/24 Dangelo Salinas MD [address] [facility] [address] [place], [place] [phone] Neurology 01/27/24 Usha Simon APRN CHEMOTHERAPIST [address] [id number] Assigned Neuroscience Provider 02/06/24 03/07/24 Anastasia Stearns, RN Lead Section Beamer 02/06/24 Germaine Lopez, W Community Health Worker Primary Care - CC 02/18/24 Robin Zepeda MD [address] [id number] Assigned Neuroscience Provider 03/08/24 05/07/24 Lisa Zambrano MD [address] [facility] [address] [place] [address]95 Assigned Heart and Vascular Provider 05/08/24 07/07/24 Raul Hoyos MD 909 [facility]2121[address] [place] [address] Assigned Neuroscience Provider 05/08/24 07/07/24 Joya Lira [facility] [address] [place] [address] Pharmacist Pharmacist 05/25/24 Jyoa Lira [facility] [address] [place] [address] Assigned MTM Pharmacist 06/08/24 Fabi Coates MD [address] [place] [address] 75 [place] [address] Genetics, Clinical 06/18/24 Robin Zepeda MD 909 [facility]2121[address] [place] [address] Assigned Neuroscience Provider 07/08/24 08/07/24 Danna Cardenas PA-C [address] [place] [address] Assigned Heart and Vascular Provider 07/08/24 Felicita Desai RN Lead Section Beamer 07/14/24 07/28/24 Arthur Salas, [facility] [address] [place] [address] Assigned Behavioral Health Provider 08/08/24 Randy Maradiaga DO 909 [place] [address] Assigned Neuroscience Provider 08/08/24 documented as of this encounter
--- OUTSIDE RECORDS SUMMARY | 2024-09-20 18:10 | XMS_ITS | Encounter Summary ---
Author Organization [place] Address [address] [place] [address] Care Team Providers Care American Board Certified Orthotist Name Role Phone Yung Madrigal MD Unavailable Unavailable Winston Villatoro OD Unavailable [phone] Denise Woodson APRN STATIONARY STEAM ENGINEER Unavailable [phone] Denise Woodson APRN STATIONARY STEAM ENGINEER Primary Care Provider Usha Simon APRN STATIONARY STEAM ENGINEER Unavailable [phone] Dangelo Salinas MD Unavailable Usha Simon APRN STATIONARY STEAM ENGINEER Unavailable Anastasia Stearns RN Unavailable Germaine Lopez CHW Unavailable [phone] Robin Zepeda MD Unavailable Lisa Zambrano MD Unavailable Raul Hoyos MD Unavailable Joya Lira [facility] Unavailable Joya Lira Joleen Unavailable [phone] Fabi Coates MD Unavailable [phone] Robin Zepeda MD Unavailable Danna Cardenas PA-C Unavailable Felicita Desai RN Unavailable Unavailab Arthur RiosSW Unavailable [phone] Randy Maradiaga DO Unavailable + Encounter Details Date Type Department Care Team (Late st Contact Info) Description 01/10/[address] 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 [address] [place] [phone] Denise Woodson APRN STATIONARY STEAM ENGINEER [address] [place], [place] [phone] 09/29/2024 9:00 AM HEALTH TECHNICAL WRITER Virtual Visit [facility] Neurology [facility] [address] [place] [address] 3rd [place] [address] Randy Maradiaga, [address] [place] [address] 471065 10/09/2024 1:20 PM HEALTH TECHNICAL WRITER Office Visit [facility] Heart [address] [place] [phone] Danna Cardenas PA-C [address] [facility] [place], [place] [address] 10/15/2024 11:00 AM HEALTH TECHNICAL WRITER Office Visit [facility] [address] [place] [phone] Denise Woodson, BARRERA STATIONARY STEAM ENGINEER [address] [place], [place] [phone] 10/30/2024 4:00 PM HEALTH TECHNICAL WRITER Virtual Visit [facility] Vascular [facility] [address] [place] [phone] Lisa Zambrano MD [address] [place], [place] [address] 12/29/2024 12:45 PM CDT Office Visit [facility] [address] [place], [place] [address] [phone] Fabi Coates MD [address] [place] [address] 636275 12/29/2024 1:45 PM CDT Office Visit [facility] [address] [place], [place] [address] Explorer [address] [phone] Fabi Coates MD [address] [place] [address] 783925 06/01/2025 11:15 AM CDT Appointment [facility] [address] [place] [phone] Robin Zepeda MD [address] [place], [place] [address] [place], [place] 39[address] 06/04/2025 11:00 AM CDT Office Visit [facility] Neuro[facility] Clinic [address] 3rd [place] [phone] Robin Zepeda MD [address] [place] [address] 781135 Usha Simon APRN STATIONARY STEAM ENGINEER [address] [place] [address] documented as of this encounter Visit Diagnoses Not on filedocumented in this encounter Additional Health Concerns Infection Onset Date Last Indicated Resolved Time Rule Out COVID-19 09/13/2024 09/13/2024 09/13/2024 12:31 PM HEALTH TECHNICAL WRITER Assessment Noted Time PHQ-9 Depression Total Score: 0 06/23/20 21 4:11 PM CDT documented as of this encounter Care Teams American Board Certified Orthotist Relationship Specialty Start Date End Date Yung Madrigal MD RETIRED PCP - Orthopaedics Orthopedics 08/26/12 01/20/24 Winston Villatoro OD [facility] [place] [address] [place] [address] PCP - Ophthalmology Ophthalmology 02/11/13 Denise Woodson APRN STATIONARY STEAM ENGINEER [address] [place] [address] PCP - General Family Practice 09/21/20 Denise Woodson APRN STATIONARY STEAM ENGINEER [address] [place] [address] Assigned PCP 07/17/20 Usha Simon APRN STATIONARY STEAM ENGINEER [address] [address] Nurse Practitioner Neurological Surgery 01/24/24 Dangelo Salinas MD [address] [place] [address] Neurology 01/27/24 Usha Simon APRN STATIONARY STEAM ENGINEER [address] [address] Assigned Neuroscience Provider 02/06/24 03/07/24 Anastasia Stearns, RN Lead Construction Specialist 02/06/24 Germaine Lopez, [facility] Community Health Worker Primary Care - CC 02/18/24 Robin Zepeda MD [address] [address] Assigned Neuroscience Provider 03/08/24 05/07/24 Lisa Zambrano MD [address] [facility] [address] [place], [place] 9[address] Assigned Heart and Vascular Provider 05/08/24 07/07/24 Raul Hoyos MD [address] [address] Assigned Neuroscience Provider 05/08/24 07/07/24 Joya Lira RPH [address] [place] [address] Pharmacist Pharmacist 05/25/24 Joya Lira [facility] [address] [place] [address] Assigned MTM Pharmacist 06/08/24 Fabi Coates MD [address] [facility] 75 [place] [address] Genetics, Clinical 06/18/24 Robin Zepeda MD 909 [facility] [id number] [place], [place] 119225 Assigned Neuroscience Provider 07/08/24 08/07/24 Danna Cardenas PA-C 6405 [place] [address] Assigned Heart and Vascular Provider 07/08/24 Felicita Desai, RN Lead Construction Specialist 07/14/24 07/28/24 Arthur Salas [facility] [address] [place] [address] Assigned Behavioral Health Provider 08/08/24 Randy Maradiaga DO [address] [place] [place] [address] 158735 Assigned Neuroscience Provider 08/08/24 documented as of this encounter
--- OUTSIDE RECORDS SUMMARY | 2024-09-20 18:10 | XMS_ITS | Encounter Summary ---
Author Organization [place] Address [address] [place] [address] Care Team Providers Care Airframe And Powerplant Technician Name Role Phone Yung Madrigal MD Unavailable Unavailable Winston Villatoro OD Unavailable [phone] Serum, Clara Garland MD Primary Care Provider Serum, Clara Garland MD Unavailable [phone] Denise Woodson APRN DISPERSION MIXER Unavailable [phone] Denise Woodson NAVY FIGHTER PILOT DISPERSION MIXER Primary Care Provider Usha Simon NAVY FIGHTER PILOT DISPERSION MIXER Unavailable Dangelo Salinas MD Unavailable Usha Simon NAVY FIGHTER PILOT DISPERSION MIXER Unavailable Anastasia Stearns RN Unavailable [phone] Germaine Lopez CHW Unavailable Robin Zepeda MD Unavailable [phone] Lisa Zambrano MD Unavailable + [phone] Raul Hoyos MD Unavailable Joya Lira [facility] Unavailable [phone] Joya Lira [facility] Unavailable Fabi oCates MD Unavailable [phone] Robin Catalan MD Unavailable Danna Cardenas PA-C Unavailable Felicita Desai RN Unavailable Unavailab Arthur RiosSW Unavailable Randy Maradiaga DO Unavailable + Reason for Visit * Reason Onset Date Comments LAB REQUEST 06/16/2019 Encounter Details Date Type Department Care Team (Late st Contact Info) Description 06/16/2019 MyC Medical Advice [facility] [address] [facility] [address] [place] [address] Serum, Clara Garland MD [address] [place] [address] LAB REQUEST Social History Tobacco [...] on file Legal Sex 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 NEWS PHOTOGRAPHER Gender Identity Not on file Sexual Orientation Not on file 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 Patient requesting to check TSH and antibodies for pt reported possible yonas's. Pended TSH for provider review. documented in this encounter Plan of Treatment Upcoming Encounters Date Type Department Care Team (Late st Contact Info) Description 09/25/2024 11:00 AM NEWS PHOTOGRAPHER Office Visit [address] [phone] Denise Woodson, NAVY FIGHTER PILOT DISPERSION MIXER [address] [place], [place] [phone] 09/29/2024 9:00 AM NEWS PHOTOGRAPHER Virtual Visit [facility] Neurology [address] 3rd [place] [phone] Randy Maradiaga, [address] [address] 10/09/2024 1:20 PM NEWS PHOTOGRAPHER Office [facility] Heart [facility] [address] [facility] [address] [place] [phone] Danna Cardenas PA-C 6405 [place], [place] 65[address]35 10/15/2024 11:00 AM NEWS PHOTOGRAPHER Office Visit [facility] [address] [place] [phone] Denise Woodson, BARRERA DISPERSION MIXER [address] [place] [address] 10/30/2024 4:00 PM NEWS PHOTOGRAPHER Virtual Visit [facility] Vascular [facility] [address] [place] [phone] Lisa Zambrano MD [address] [place] [address] 12/29/2024 12:45 PM CDT Office Visit [facility] [address] [facility] [address],[place] [phone] Fabi Coates MD 420 [facility] 75 [place], [place] 58[address] 12/29/2024 1:45 PM CDT Office Visit [facility] [address] [facility] Explorer [facility] [address]th [address],[place] [phone] Fabi Coates MD [address] [place] [facility] 75 [place], [place] 7799[address] 06/01/2025 11:15 AM CDT Appointment [facility] [address] [place] [address] [place] [phone] Robin Zepeda MD [address] [place] [address] 06/04/2025 11:00 AM CDT Office [facility] Neurosurgery [facility] 909 [facility] 3rd [place] [phone] Robin Zepeda MD [address] [place] [address] Usha Simon APRN [address] [address] documented as of this encounter Results * Follicle stimulating hormone (06/22/2019 3:36 PM CDT) FSH 9.5 IU/L 06/23/2019 2:32 PM CDT [facility] Comment: FSH Reference Range Female: Follicular 2.5-10.2 Mid-cycle 3.4-33.4 Luteal 1.5-9.1 Postmenopausal 23.0-116.3 Blood specimen (specimen) 06/22/2019 3:36 PM CDT 06/22/2019 3:37 PM CDT Clara Cornell MD LAB - BLOOD ORDERABLES Final Result [facility] [address] [place] [address] * TSH with free T4 reflex FUTURE anytime (06/22/2019 3:36 PM CDT) TSH 3.30 0.40 - 4.00 mU/L 06/23/2019 3:[address] [facility] Blood specimen (specimen) 06/22/2019 3:36 PM CDT 06/22/2019 3:37 PM CDT Clara Cornell MD LAB - BLOOD ORDERABLES Final Result Performing Organization Address City/[facility]/ZIP Co de Phone Number [facility] [address] [place] [address] documented in this encounter Visit Diagnoses Diagnosis Anti-TPO antibodies present- Primary Other and unspecified nonspecific immunological findings Excessive sweating Generalized hyperhidrosis documented in this encounter Additional Health Concerns Infection Onset Date Last Indicated Resolved Time Rule Out COVID-19 09/13/2024 09/13/2024 09/13/2024 12:31 PM NEWS PHOTOGRAPHER Assessment Noted Time PHQ-9 Depression Total Score: 0 06/15/20 19 7:09 PM CDT documented as of this encounter Care Teams Airframe And Powerplant Technician Relationship Specialty Start Date End Date Yung Madrigal MD RETIRED PCP - Orthopaedics Orthopedics 08/26/12 01/20/24 Winston Villatoro OD [facility] [address] [place] [address] PCP - Ophthalmology Ophthalmology 02/11/13 Clara Cornell MD [facility] [place] [address] [place] [address] PCP - General Internal Medicine 02/07/17 09/20/20 Denise Woodson APRN DISPERSION MIXER [address] [place] [address] PCP - General Family Practice 09/21/20 Clara Cornell MD 8675 [place] [address] Assigned PCP 01/17/17 07/16/20 Denise Woodson APRN DISPERSION MIXER [address] [place] [address] Assigned PCP 07/17/20 Usha Simon APRN DISPERSION MIXER [address] [place] [address] 406565 Nurse Practitioner Neurological Surgery 01/24/24 Dangelo Salinas MD [address] [place] [address] Neurology 01/27/24 Usha Simon APRN DISPERSION MIXER [address] [place] [address] 730235 Assigned Neuroscience Provider 02/06/24 03/07/24 Anastasia Stearns, RN Lead Shaping Machine Tender 02/06/24 Germaine Lopez, CHW Community Health Worker Primary Care - CC 02/18/24 Robin Zepeda MD [address] 182495 Assigned Neuroscience Provider 03/08/24 05/07/24 Lisa Zambrano MD [address] [facility] [place] [address] Assigned Heart and Vascular Provider 05/08/24 07/07/24 Raul Hoyos MD [address] [place] [address], [place] [address] Assigned Neuroscience Provider 05/08/24 07/07/24 Joya Lira [facility] [address] [place], [place] [phone] Pharmacist Pharmacist 05/25/24 Joya Lira [facility] [address] [place] [address] Assigned MTM Pharmacist 06/08/24 Fabi Coates MD [address] [place] [address] 75 [place], [place] 319245 Genetics, Clinical 06/18/24 Robin Zepeda MD [address] [address] Assigned Neuroscience Provider 07/08/24 08/07/24 Danna Cardenas PA-C 6[address] [place] [address] Assigned Heart and Vascular Provider 07/08/24 Felicita Desai, RN Lead Shaping Machine Tender 07/14/24 07/28/24 Arthur Salas [facility] [address] [place] [address] Assigned Behavioral Health Provider 08/08/24 Randy Maradiaga DO [address] [place] [address] Assigned Neuroscience Provider 08/08/24 documented as of this encounter
--- OUTSIDE RECORDS SUMMARY | 2024-09-20 18:10 | XMS_ITS | Encounter Summary ---
Author Organization [place] Address [address] [place] [address] Care Team Providers Care Rod Bending Machine Operator Name Role Phone Yung Madrigal MD Unavailable Unavailable Winston Villatoro OD Unavailable [phone] Denise Woodson APRN SH[employer]SMITH Unavailable [phone] Denise Woodson APRN SHIPSMITH Primary Care Provider Usha Simon APRN SH[employer]SMITH Unavailable [phone] Dangelo Salinas MD Unavailable Usha Simon APRN SH[employer]SMITH Unavailable Anastasia Stearns RN Unavailable [phone] Germaine Lopez CHW Unavailable [phone] Robin Zepeda MD Unavailable [phone] Lisa Zambrano MD Unavailable Raul Hoyos MD Unavailable Joya Lira [facility] Unavailable Joya Lira Joleen Unavailable Fabi Coates MD Unavailable [phone] Robin Zepeda MD Unavailable [phone] Danna Cardenas PA-C Unavailable [phone] Felicita Desai RN Unavailable Unavailab Arthur RiosSW Unavailable [phone] Randy Maradiaga DO Unavailable + Encounter Details Date Type Department Care Team (Late st Contact Info) Description 01/22/2022 MyC Medical Advice [facility] [address] [place] [address] Angelo Escobar Social History Tobacco [...] on file Legal Sex 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 REFINISHER Gender Identity Not on file Sexual Orientation Not on file 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 file Not on file Not on file Not on file Not on file Not on file Not on file documented as of this encounter Miscellaneous Notes * Telephone Encounter - Tran Castro RN - 01/22/2022 5:19 PM CDT documented in this encounter Plan of Treatment Upcoming Encounters Date Type Department Care Team (Late Contact Info) Description 09/25/2024 11:00 AM REFINISHER Office Visit [facility] [address] [place] [address] Denise Woodson APRN [facility] [address] [place] [address] 09/29/2024 9:00 AM REFINISHER Virtual Visit [facility] Neurology [address] 3rd [place] [address] Randy Maradiaga DO [address] [place] [address] 10/09/2024 1:20 PM REFINISHER Office Visit [facility] Heart [facility] [address] [facility] [address] [place] [phone] Danna Cardenas PA-C 6405 [place] [address] 10/15/2024 11:00 AM REFINISHER [facility] [address] [place] [address] Denise Woodson APRN [employer]SM[employer] [address] [place], [place] 1489168 10/30/2024 4:00 PM REFINISHER Virtual Visit [facility] Vascular [facility] [address] [place] [phone] Lisa Zambrano MD [address] [place], [place] [address] 12/29/2024 12:45 PM CDT Office Visit [facility] [address] [place] [address] [phone] Fabi Coates MD [address] [place] [address] 901325 12/29/2024 1:45 PM CDT Office Visit [facility] [address] [place] [phone] Fabi Coates MD [address] [place] [address] 895635 06/01/2025 11:15 AM CDT Appointment [facility] [address] [facility] [address] [place] [phone] Robin Zepeda MD [address] [place] [address] 06/04/2025 11:00 AM CDT Office Visit [facility] Neurosurgery Clinic [address] 3rd [place] [address] Robin Zepeda MD [address] [place] [address] 011205 Usha Simon APRN SHIPSMITH [address] [place] [address] 536455 documented as of this encounter Visit Diagnoses Not on filedocumented in this encounter Additional Health Concerns Infection Onset Date Last Indicated Resolved Time Rule Out COVID-19 09/13/2024 09/13/2024 09/13/2024 12:31 PM REFINISHER Assessment Noted Time PHQ-9 Depression Total Score: 0 06/23/20 21 4:11 PM CDT documented as of this encounter Care Teams Rod Bending Machine Operator Relationship Specialty Start Date End Date Yung Madrigal MD RETIRED PCP - Orthopaedics Orthopedics 08/26/12 01/20/24 Winston Villatoro OD [facility] [place] [address] [place] [address] PCP - Ophthalmology Ophthalmology 02/11/13 Denise Woodson APRN [employer]SMITH [address] [place] [address] PCP - General Family Practice 09/21/20 Denise Woodson APRN SHIPSMITH [address] [address] [facility] [place] [address] Assigned PCP 07/17/20 Usha Simon APRN [employer] [address] [address] Nurse Practitioner Neurological Surgery 01/24/24 Dangelo Salinas MD [address] [place] [address] Neurology 01/27/24 Usha Simon APRN [employer] [address] [place] [address] 181905 Assigned Neuroscience Provider 02/06/24 03/07/24 Anastasia Stearns, RN Lead Hotel Assistant General Manager 02/06/24 Germaine Lopez, W Community Health Worker Primary Care - CC 02/18/24 Robin Zepeda MD [address] [place] [address] Assigned Neuroscience Provider 03/08/24 05/07/24 Lisa Zambrano MD [address] [place] [address] Assigned Heart and Vascular Provider 05/08/24 07/07/24 Raul Hoyos MD [address] [place] [address] Assigned Neuroscience Provider 05/08/24 07/07/24 Joya Lira [facility] [address] [place] [address] Pharmacist Pharmacist 05/25/24 Joya Lira [facility] [address] [place] [address] Assigned MTM Pharmacist 06/08/24 Fabi Coates MD [address] [place] [address] 75 [place] [address] Genetics, Clinical 06/18/24 Robin Zepeda MD 9 [facility] [id number] [place], [place] 073335 Assigned Neuroscience Provider 07/08/24 08/07/24 Danna Cardenas PA-C 6405 [place] [address] Assigned Heart and Vascular Provider 07/08/24 Felicita Desai RN Lead Hotel Assistant General Manager 07/14/24 07/28/24 Arthur Salas [facility] [address] [place] [address] Assigned Behavioral Health Provider 08/08/24 Randy Maradiaga DO [address] [place] [address] Assigned Neuroscience Provider 08/08/24 documented as of this encounter
--- OUTSIDE RECORDS SUMMARY | 2024-09-20 18:10 | XMS_ITS | Encounter Summary ---
Author Organization [facility] Address [address] [place] [address] Care Team Providers Care Etcher Hand Name Role Phone Yung Madrigal MD Unavailable Unavailable Winston Villatoro OD Unavailable [phone] Denise Woodson APRN MEDIA LIBRARIAN Unavailable [phone] Denies Woodson APRN MEDIA LIBRARIAN Primary Care Provider Usha Simon APRN MEDIA LIBRARIAN Unavailable [phone] Dangelo Salinas MD Unavailable Usha Simon APRN MEDIA LIBRARIAN Unavailable Anastasia Stearns RN Unavailable Germaine Lopez CHW Unavailable Robin Zepeda MD Unavailable [phone] Lisa Zambrano MD Unavailable Raul Hoyos MD Unavailable Joya Lira [facility] Unavailable Joay Lira Joleen Unavailable Fabi Coates MD Unavailable [phone] Robin Zepeda MD Unavailable Danna Cardenas PA-C Unavailable +[phone] Felicita Desai RN Unavailable Unavailab Arthur Rios ORE FEEDER Unavailable [phone] Randy Maradiaga DO Unavailable + Reason for Visit * Reason Comments Medication Refill Encounter Details Date Type Department Care Team (Late st Contact Info) Description 06/11/2021 Refill [facility] [address] [facility] [address] [place] [address] Denise Woodson, HAND I BLOCKER MEDIA LIBRARIAN [address] [facility] [place] [address] Medication Refill Social History Tobacco Use Types Packs/Day Years Used Date Smoking Tobacco: Never Smokeless Tobacco: Never Alcohol Use Standard Drinks/Week Comments Not Currently 0 (1 standard drink = 0.6 oz pur e alcohol) minimal PHQ-2 Answer Date Recorded PHQ-2 Score 0 01/04/2021 Comments No Sex and Gender Information Value Date Recorded Sex Assigned at Not on file Legal Sex 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 GAS EXAMINER Gender Identity Not on file Sexual Orientation [...] st Contact Info) Description 09/25/2024 11:00 AM GAS EXAMINER Office Visit [facility] [address] [place] [address] Denise Woodson, BARRERA MEDIA LIBRARIAN [address] [place] [address] 09/29/2024 9:00 AM GAS EXAMINER Virtual Visit [facility] Neurology [address] [address] Rnady Maradiaga, [address] [place] [address] 841255 10/09/2024 1:20 PM GAS EXAMINER Office Visit [facility] Heart [facility] [address] [facility] [address] [place] [phone] Danna Cardenas PA-C [address] [facility] [place] [address] 10/15/2024 11:00 AM GAS EXAMINER [facility] [address] [place] [phone] Chintan Denise, HAND I BLOCKER MEDIA LIBRARIAN [address] [place], [place] 83[address] 10/30/2024 4:00 PM GAS EXAMINER Virtual Visit [facility] Vascular [facility] [address] [place] [phone] Lisa Zambrano MD [address] [place] [address] 12/29/2024 12:45 PM CDT Office Visit [facility] [address] [place] [address] [phone] Fabi Coates MD [address] [place] [address] 12/29/2024 1:45 PM CDT Office Visit [facility] [address] [place] [phone] Fabi Coates MD [address] [address] 06/01/2025 11:15 AM CDT Appointment [facility] [address] [facility] [address] [place] [address] Robin Zepeda MD [address] [place] [address] 06/04/2025 11:00 AM CDT Office Visit [facility] Neurosurgery [address] 3rd [place] [address] Robin Zepeda MD [address] [place] [address] Usha Simon APRN MEDIA LIBRARIAN [address] [place] [address] documented as of this encounter Visit Diagnoses Diagnosis Insomnia, unspecified type documented in this encounter Additional Health Concerns Infection Onset Date Last Indicated Resolved Time Rule Out COVID-19 09/13/2024 09/13/2024 09/13/2024 12:31 PM GAS EXAMINER Assessment Noted Time PHQ-9 Depression Total Score: 0 01/05/20 9:31 AM CDT documented as of this encounter Care Teams Etcher Hand Relationship Specialty Start Date End Date Yung Madrigal MD RETIRED PCP - Orthopaedics Orthopedics 08/26/12 01/20/24 Winston Villatoro, [facility] [place] [address] [facility] [address] [place] [address] PCP - Ophthalmology Ophthalmology 02/11/13 Denise Woodson APRN MEDIA LIBRARIAN [address] [place] [address] PCP - General Family Practice 09/21/20 Denise Woodson APRN MEDIA LIBRARIAN [address] [place] [address] Assigned PCP 07/17/20 Usha Simon APRN MEDIA LIBRARIAN [address] [address] Nurse Practitioner Neurological Surgery 01/24/24 Dangelo Salinas MD [address] [place] [address] Neurology 01/27/24 Usha Simon APRN MEDIA LIBRARIAN [address] [place] [address] Assigned Neuroscience Provider 02/06/24 03/07/24 Anastasia Stearns, RN Lead Principal Consultant 02/06/24 Germaine Lopez, W Community Health Worker Primary Care - CC 02/18/24 Robin Zepeda MD [address] [address] Assigned Neuroscience Provider 03/08/24 05/07/24 Lisa Zambrano MD [address] [place] [address] Assigned Heart and Vascular Provider 05/08/24 07/07/24 Ralu Hoyos MD [address] [address] Assigned Neuroscience Provider 05/08/24 07/07/24 Joya Lira, [facility] [address] [place] [address] Pharmacist Pharmacist 05/25/24 Joya Lira [facility] [address] [place] [address] Assigned MTM Pharmacist 06/08/24 Fabi Coates MD [address] [place] [address] 75 [place] [address] Genetics, Clinical 06/18/24 Robin Zepeda MD 909 [facility] [id number] [place] [address] Assigned Neuroscience Provider 07/08/24 08/07/24 Danna Cardenas PA-C 6405 [place] [address] Assigned Heart and Vascular Provider 07/08/24 Felicita Desai, RN Lead Principal Consultant 07/14/24 07/28/24 Arthur Salas, [facility] [address] [place] [address] Assigned Behavioral Health Provider 08/08/24 Randy Maradiaga DO 909 [place], [place] 286365 Assigned Neuroscience Provider 08/08/24 documented as of this encounter
--- OUTSIDE RECORDS SUMMARY | 2024-09-20 18:11 | XMS_ITS | Encounter Summary ---
Author Organization [facility] Address [address] [place] [address] Care Team Providers Care Grades 1 Through 6 Teacher Name Role Phone Timmy Perez MD Unavailable Unavailable Yung Madrigal MD Unavailable Unavailable Winston Villatoro OD Unavailable [phone] Apple Sykes MD Primary Care Provider Unavailab Westley Vera MD Unavailable GeorginaAlessandra Gómez APRN COUNTERSINKER Primary Car e Provider Serum, Clara Garland MD Primary Care Provider Serum, Clara Garland MD Unavailable [phone] Serum, Clara Garland MD Unavailable [phone] Denise Woodson APRN COUNTERSINKER Unavailable [phone] Denise Woodson APRN COUNTERSINKER Primary Care Provider Usha Simon APRN COUNTERSINKER Unavailable + [phone] Dangelo Salinas MD Unavailable Usha Simon APRN COUNTERSINKER Unavailable + [phone] Anastasia Stearns RN Unavailable [phone] Germaine Lopez CHW Unavailable [phone] Robin Zepeda MD Unavailable [phone] Lisa Zambrano MD Unavailable + [phone] Raul Hoyos MD Unavailable SorayaJoya [facility] Unavailable [phone] Soraya Joya [facility] Unavailable [phone] Fabi Coates MD Unavailable [phone] DuaneRobin MD Unavailable [phone] Danna Cardenas PA-C Unavailable [phone] Felicita Desai RN Unavailable Unavailab Arthur Rios PROPAGATION WORKER Unavailable [phone] Randy Maradiaga DO Unavailable + Encounter Details Date Type Department Care Team (Late st Contact Info) Description 05/19/2013 MyC Medical Advice [facility] [place] Orth[facility] [address] [place] [address] Yung Madrigal MD RETIRED Social History Tobacco Use Types Packs/Day Years Used Date Smoking Tobacco: Never Smokeless Tobacco: Never Alcohol Use Standard Drinks/Week Comments Yes 0 (1 standard drink = 0.6 oz pur e alcohol) minimal Comments No Sex and Gender Information Value Date Recorded Sex Assigned at Not on file Legal Sex 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 PRODUCT SAFETY COMPLIANCE LEADER Gender Identity Not on file Sexual Orientation Not on file 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 documented as of this encounter Plan of Treatment Upcoming Encounters Date Type Department Care Team (Late st Contact Info) Description 09/25/2024 11:00 AM PRODUCT SAFETY COMPLIANCE LEADER Office Visit [facility] [address] [place] [address] Denise Woodson APRN [facility] [address] [place] [address] 09/29/2024 9:00 AM PRODUCT SAFETY COMPLIANCE LEADER Virtual Visit [facility] Neurology [address] [place] [phone] Randy Maradiaga, DO 909 [place], [place] 876125 10/09/2024 1:20 PM PRODUCT SAFETY COMPLIANCE LEADER Office Visit [facility] Heart [facility] [address] [facility] [address] [place] [phone] Danna Cardenas PA-C 6405 [place], [place] 3073[address] 10/15/2024 11:00 AM PRODUCT SAFETY COMPLIANCE LEADER [facility] [address] [place] [address] Denise Woodson APRN COUNTERSINKER [address] [place], [place] 3828268 10/30/2024 4:00 PM PRODUCT SAFETY COMPLIANCE LEADER Virtual Visit [facility] Vascular Clinic [place] [address] [place] [phone] Lisa Zambrano MD [address] [place], [place] [address] 12/29/2024 12:45 PM CDT Office Visit [facility] [address] [place] [address] Ave [address] [phone] Fabi Coates MD [address] [place] [address]73[address] 12/29/2024 1:45 PM CDT Office Visit [facility] Pediatric Specialty Clinic [address] [place] [address] Ave Explorer [address] [phone] Fabi Coates MD [address] [place] [address] 06/01/2025 11:15 AM CDT Appointment [facility] [address] [place] [address] Robin Zepeda MD [address] [place] [address] 06/04/2025 11:00 AM CDT Office Visit [facility] Neurosurgery Clinic [address] 3rd [place] [address] Robin Zepeda MD [address] [place] [address] Usha Simon APRN [address] 4101[address] documented as of this encounter Visit Diagnoses Not on filedocumented in this encounter Additional Health Concerns Infection Onset Date Last Indicated Resolved Time Rule Out COVID-19 09/13/2024 09/13/2024 09/13/2024 12:31 PM PRODUCT SAFETY COMPLIANCE LEADER documented as of this encounter Care Teams Grades 1 Through 6 Teacher Relationship Specialty Start Date End Date Timmy Perez MD PCP - Obstetrics/Gynecology 03/02/08 08/07/15 Yung Madrigal MD RETIRED PCP - Orthopaedics Orthopedics 08/26/12 01/20/24 Winston Villatoro OD [facility] [place] [address] [place] [address] PCP - Ophthalmology Ophthalmology 02/11/13 Apple Sykes MD [facility] [place] [address] [place] [address] PCP - General Family Practice 05/04/13 10/25/16 Westley Bates MD XXX RETIRED XXX 701 [facility] 95 [place] [address] PCP - ENT Otolaryngology 05/14/13 07/28/18 [facility] G[facility]mez APRN COUNTERSINKER 3305 [facility] [place] [address] PCP - General Nurse Practitioner 10/26/16 02/06/17 Clara Cornell MD [address] [facility] [place] [address] PCP - General Internal Medicine 02/07/17 09/20/20 Clara Cornell MD 8675 [place] [address] PCP - Assigned PCP 01/17/17 11/18/18 Denise Woodson APRN COUNTERSINKER [address] [facility] [place] [address] PCP - General Family Practice 09/21/20 Clara Cornell MD 8675 [place] [address] Assigned PCP 01/17/17 07/16/20 Denise Woodson APRN COUNTERSINKER [address] [place] [address] Assigned PCP 07/17/20 Usha Simon APRN COUNTERSINKER 909 [facility] [place] [address] Nurse Practitioner Neurological Surgery 01/24/24 Dangelo Salinas MD [address] [place], [place] [id number] Neurology 01/27/24 Usha Simon APRN COUNTERSINKER [address] [address] Assigned Neuroscience Provider 02/06/24 03/07/24 Anastasia Stearns, RN Lead Adult Ministries Director 02/06/24 Germaine Lopez, W Community Health Worker Primary Care - CC 02/18/24 Robin Zepeda MD [address] [address] Assigned Neuroscience Provider 03/08/24 05/07/24 Lisa Zambrano MD [address] [facility] [address] [place] [address] Assigned Heart and Vascular Provider 05/08/24 07/07/24 Raul Hoyos MD [address] [address] Assigned Neuroscience Provider 05/08/24 07/07/24 Joya Lira [facility] [address] [place] [address] Pharmacist Pharmacist 05/25/24 Joya Lira [facility] [address] [place] [address] Assigned MTM Pharmacist 06/08/24 Fabi Coates MD [address] [place] [address] 75 [place] [address] Genetics, Clinical 06/18/24 Robin Zepeda MD 909 [facility] [id number] [place] [address] Assigned Neuroscience Provider 07/08/24 08/07/24 Danna Cardenas PA-C 6405 [place] [address] Assigned Heart and Vascular Provider 07/08/24 Felicita Desai, GEMA Lead Adult Ministries Director 07/14/24 07/28/24 Arthur Salas, [facility] [address] [place] [address] Assigned Behavioral Health Provider 08/08/24 Randy Maradiaga DO [address] [place] [address] Assigned Neuroscience Provider 08/08/24 documented as of this encounter
--- OUTSIDE RECORDS SUMMARY | 2024-09-20 18:11 | XMS_ITS ---
Author Organization [facility] Address [address] [place] [address] Care Team Providers Care Applier Name Role Phone Shauna Winston Saez OD Unavailable Denise Woodson APRN CYLINDER STEAMER Unavailable [phone] Denise Woodson APRN CYLINDER STEAMER Primary Care Provider Usha Simon APRN CYLINDER STEAMER Unavailable [phone] Dangelo Salinas MD Unavailable Anastasia Stearns RN Unavailable Germaine Lopez CHW Unavailable Joya Lira [facility] Unavailable [phone] Joya Lira [facility] Unavailable [phone] Fabi Coates MD Unavailable [phone] Danna Cardenas PA-C Unavailable [phone] Arthur SalasSW Unavailable [phone] Randy Maradiaga DO Unavailable + Primary Care Care Coordination Status:Enrolled (Active) Start date:02/06/2024 Enrollment date:02/07/2024 Case Team Name Relationship Phone Anastasia Stearns RN Lead Emergency Department Aide(Respons ible Staff) [phone] Germaine Lopez CHW Community Health Worker [phone] Continued Care and Services Coordination
--- OUTSIDE RECORDS SUMMARY | 2024-09-20 18:11 | XMS_ITS | Encounter Summary ---
Author Organization [facility] Address [address] [place] [address] Care Team Providers Care Merit System Director Name Role Phone Yung Madrigal MD Unavailable Unavailable Winston Villatoro OD Unavailable [phone] Serum, Clara Garland MD Primary Care Provider Serum, Clara Garland MD Unavailable [phone] Denise Woodson APRN LEAFLET OR NEWSPAPER DELIVERER Unavailable [phone] Denise Woodson ALLIANCE CONSULTANT LEAFLET OR NEWSPAPER DELIVERER Primary Care Provider Usha Simon ALLIANCE CONSULTANT LEAFLET OR NEWSPAPER DELIVERER Unavailable Dangelo Salinas MD Unavailable Usha Simon ALLIANCE CONSULTANT LEAFLET OR NEWSPAPER DELIVERER Unavailable Anastasia Stearns RN Unavailable [phone] Germaine Lopez CHW Unavailable Robin Zepeda MD Unavailable Lisa Zambrano MD Unavailable + [phone] Raul Hoyos MD Unavailable [phone] Joya Lira [facility] Unavailable [phone] Joya Lira [facility] Unavailable Fabi Coates MD Unavailable [phone] Robin Catalan MD Unavailable Danna Cardenas PA-C Unavailable [phone] Felicita Desai RN Unavailable Unavailab Arthur RiosSW Unavailable Randy Maradiaga DO Unavailable + Encounter Details Date Type Department Care Team (Late st Contact Info) Description 01/21/2019 MyC Medical Advice [facility] [address] [facility] [address] [place] [phone] [place] Social History Tobacco Use Types Packs/Day Years Used Date Smoking Tobacco: Never Smokeless Tobacco: Never Alcohol Use Standard Drinks/Week Comments Yes 0 (1 standard drink = 0.6 oz pur e alcohol) minimal PHQ-2 Answer Date Recorded PHQ-2 Score 0 09/23/2018 Comments No Sex and Gender Information Value Date Recorded Sex Assigned at Not on file Legal Sex 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 ASSISTANT MERCHANDISE MANAGER Gender Identity Not on file Sexual Orientation Not on file 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 Not on file Not on file Not on file Not on file Not on file Not on file documented as of this encounter Plan of Treatment Upcoming Encounters Date Type Department Care Team (Late st Contact Info) Description 09/25/2024 11:00 AM ASSISTANT MERCHANDISE MANAGER Office Visit [facility] [address] [place] [address] Denise Woodson APRN [facility] [address] [place], [place] 7110[address] 09/29/2024 9:00 AM ASSISTANT MERCHANDISE MANAGER Virtual Visit [facility] Neurology Clinic [address] [address] Randy Maradiaga DO [address] [place] [address] 10/09/2024 1:20 PM ASSISTANT MERCHANDISE MANAGER Office Visit [facility] Heart [facility] [address] [facility] [address] [place] [phone] Danna Cardenas PA-C [address] [facility] [place] [place] [address] 10/15/2024 11:00 AM ASSISTANT MERCHANDISE MANAGER [facility] [address] [place] [phone] Chintan Denise, BARRERA LEAFLET OR NEWSPAPER DELIVERER [address] [place], [place] 30147[address] 10/30/2024 4:00 PM ASSISTANT MERCHANDISE MANAGER Virtual Visit [facility] [place] [address] [place] [phone] Lisa Zambrano MD [address] [place] [address] 12/29/2024 12:45 PM CDT Office Visit [facility] Pediatric Specialty Clinic [address] [place], [place] [address]e Explorer [address] [phone] Fabi Coates MD [address] [place] [place] [address] 12/29/2024 1:45 PM CDT Office Visit [facility] Pediatric Specialty Clinic [address] [place], [place] [address] Explorer [address] [phone] Fabi Coates MD [address] [place] [place] [address] 06/01/2025 11:15 AM CDT Appointment [facility] Imaging [address] [facility] [address] [place] [phone] Robin Zepeda MD [address] [place] [address] 06/04/2025 11:00 AM CDT Office Visit [facility] Neurosurgery [address] 3rd [place] [address] Robin Zepeda MD [address] [place] [address] Usha Simon APRN LEAFLET OR NEWSPAPER DELIVERER [address] [place] [address] 324075 documented as of this encounter Visit Diagnoses Not on filedocumented in this encounter Additional Health Concerns Infection Onset Date Last Indicated Resolved Time Rule Out COVID-19 09/13/2024 09/13/2024 09/13/2024 12:31 PM ASSISTANT MERCHANDISE MANAGER Assessment Noted Time PHQ-9 Depression Total Score: 0 02/09/20 17 7:29 AM CDT documented as of this encounter Care Teams Merit System Director Relationship Specialty Start Date End Date Yung Madrigal MD RETIRED PCP - Orthopaedics Orthopedics 08/26/12 01/20/24 Winston Villatoro OD [facility] [address] [place] [address] PCP - Ophthalmology Ophthalmology 02/11/13 Clara Cornell MD [facility] [address] [place] [address] PCP - General Internal Medicine 02/07/17 09/20/20 Denise Woodson APRN LEAFLET OR NEWSPAPER DELIVERER [address] [place] [address] PCP - General Family Practice 09/21/20 Clara Cornell MD 8675 [place], [place] [id number] Assigned PCP 01/17/17 07/16/20 Denise Woodson APRN LEAFLET OR NEWSPAPER DELIVERER [address] [place] [address] Assigned PCP 07/17/20 Usha Simon APRN LEAFLET OR NEWSPAPER DELIVERER [address] [phone] Nurse Practitioner Neurological Surgery 01/24/24 Dangelo Salinas MD [address] [facility] [address] [place], [place] [id number] Neurology 01/27/24 Usha Simon APRN LEAFLET OR NEWSPAPER DELIVERER [address] [id number] Assigned Neuroscience Provider 02/06/24 03/07/24 Anastasia Stearns, RN Lead Poultry Sexer 02/06/24 Germaine Lopez, W Community Health Worker Primary Care - CC 02/18/24 Robin Zepeda MD [address] [phone] Assigned Neuroscience Provider 03/08/24 05/07/24 Lisa Zambrano MD [address] [facility] [place] 330975 Assigned Heart and Vascular Provider 05/08/24 07/07/24 Raul Hoyos MD 909 [facility]121[address]J [place] [address] Assigned Neuroscience Provider 05/08/24 07/07/24 Joya Lira [facility] [address] [place] [address] Pharmacist Pharmacist 05/25/24 Joya Lira [facility] [address] [place] [address] Assigned MTM Pharmacist 06/08/24 Fabi Coates MD [address] [place] [address] 75 [place] [address] Genetics, Clinical 06/18/24 Robin Zepeda MD 909 [facility]121[address] [place] [address] Assigned Neuroscience Provider 07/08/24 08/07/24 Danna Cardenas PA-C [address] [place] [address] Assigned Heart and Vascular Provider 07/08/24 Felicita Desai, GEMA Lead Poultry Sexer 07/14/24 07/28/24 Arthur Salas [facility] [address] [place] [address] Assigned Behavioral Health Provider 08/08/24 Randy Maradiaga DO 909 [place] [address] Assigned Neuroscience Provider 08/08/24 documented as of this encounter
--- OUTSIDE RECORDS SUMMARY | 2024-09-20 18:11 | XMS_ITS | Encounter Summary ---
Author Organization [place] Address [address] [place] [address]. [place] [address] Care Team Providers Care Color Matcher Name Role Phone Timmy Perez MD Unavailable Unavailable Encounter Details Date Type Department Care Team (Late st Contact Info) Description 01/17/2012 3:20 PM T [facility] in [address] [phone] Luis Walsh [address] [place] [address] Interface, MD [place] Social History Tobacco Use Types Packs/Day Years Used Date Smoking Tobacco: Never Passive Smoke Exposure: Never Smokeless Tobacco: Never Alcohol Use Standard Drinks/Week Comments Not Currently 0 (1 standard drink = 0.6 oz pur e alcohol) minimal Comments No Sex and Gender Information Value Date Recorded Sex Assigned at Not on file Legal Sex 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 WOOL WASHER FEEDER Gender Identity Not on file Sexual Orientation [...] st Contact Info) Description 09/25/2024 11:00 AM WOOL WASHER FEEDER Office Visit [facility] [address] [place] [address] Denise Woodson APRN [facility] [address] [place], [place] 2[address] 09/29/2024 9:00 AM WOOL WASHER FEEDER Virtual Visit [facility] Neurology [place] [address] [facility] 3rd [place] [phone] Randy Maradiaga, 909 [place], [place] [address]155 10/09/2024 1:20 PM WOOL WASHER FEEDER Office Visit [facility] Heart [facility] 6405 [facility] [address] [place] [phone] Danna Cardenas PA-C 6405 [place], [place] [address] 10/15/2024 11:00 AM WOOL WASHER FEEDER Office Visit [facility] [address] [place] [phone] Denise Woodson, [employer]OMAT[employer] [address] [place] [address] 10/30/2024 4:00 PM WOOL WASHER FEEDER Virtual Visit [facility] Vascular [facility] [address] [place] [phone] Lisa Zambrano MD [address] [facility]340 [place], [place] [address] 12/29/2024 12:45 PM CDT Office Visit [facility] On [facility] of [facility] 12th [address]r,[place] [phone] Fabi Coates MD 420 [facility] 75 [place], [place] [address] 12/29/2024 1:45 PM CDT Office Visit [facility] 2450 [facility] [address],[place] [phone] Fabi Coates MD 420 [facility] 75 [place] [address] 06/01/2025 11:15 AM CDT Appointment [facility] [address] [place] [address] [place] [phone] Robin Zepeda MD [address] [place] [address] 06/04/2025 11:00 AM CDT Office Visit [facility] 909 [facility] 3rd [place] [phone] Robin Zepeda MD [address] [place] [address] Usha Simon, [employer] BIOMATHEMATICIAN [address] 901[address] documented as of this encounter Visit Diagnoses Not on filedocumented in this encounter Additional Health Concerns Infection Onset Date Last Indicated Resolved Time Rule Out COVID-19 09/13/2024 09/13/2024 09/13/2024 12:31 PM WOOL WASHER FEEDER documented as of this encounter Care Teams Color Matcher Relationship Specialty Start Date End Date Timmy Perez MD PCP - Obstetrics/Gynecology 03/02/08 1110/31 documented as of this encounter
--- OUTSIDE RECORDS SUMMARY | 2024-09-20 18:11 | XMS_ITS | Encounter Summary ---
Author Organization [place] Address [address] [place] [address] Care Team Providers Care Analytical Scientist Name Role Phone Timmy Perez MD Unavailable Unavailable Yung Madrigal MD Unavailable Unavailable Winston Villatoro OD Unavailable [phone] Apple Sykes MD Primary Care Provider Unavailab Westley Vera MD Unavailable [phone] GeorginaAlessandra Gómez APRN THEATER TEACHER Primary Car e Provider Serum, Clara Garland MD Primary Care Provider Serum, Clara Garland MD Unavailable +[phone] Serum, Clara Garland MD Unavailable +[phone] Denise Woodson APRN THEATER TEACHER Unavailable +[phone] Denise Woodson APRN THEATER TEACHER Primary Care Provider Usha Simon APRN THEATER TEACHER Unavailable + [phone] Dangelo Salinas MD Unavailable Usha Simon APRN THEATER TEACHER Unavailable + [phone] Anastasia Stearns RN Unavailable +[phone] Germaine Lopez CHW Unavailable +[phone] Robin Zepeda MD Unavailable +[phone] Lisa Zambrano MD Unavailable + [phone] Raul Hoyos MD Unavailable [phone] [facility] Unavailable [phone] [facility] Unavailable [phone] Fabi Coates MD Unavailable [phone] DuaneRobin MD Unavailable [phone] Danna Cardenas PA-C Unavailable +[phone] Felicita Desai RN Unavailable Unavailab ana Arthur Salas SCRAP HANDLER Unavailable +[phone] Randy Maradiaga DO Unavailable + Encounter Details Date Type Department Care Team (Late st Contact Info) Description 05/06/2013 MyC Medical Advice [facility] in 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 documented as of this encounter Plan of Treatment Upcoming Encounters Date Type Department Care Team (Late st Contact Info) Description 09/25/2024 11:00 AM LOADING MACHINE OPERATOR Office Visit [facility] [address] [place] [address] Denise Woodson APRN [facility] [address] [place] [address] 09/29/2024 9:00 AM LOADING MACHINE OPERATOR Virtual Visit [facility] Neurology [address] 3rd [place] [address] Randy Maradiaga, DO 909 [place] [address] 10/09/2024 1:20 PM LOADING MACHINE OPERATOR Office Visit [facility] Heart [facility] 6405 [facility] [address] [place] [phone] Danna Cardenas PA-C 6405 [place], [place] [address]385 10/15/2024 11:00 AM LOADING MACHINE OPERATOR Office Visit [facility] [address] [place] [address] Denise Woodson APRN THEATER TEACHER [address] [place], [place] [address] 10/30/2024 4:00 PM LOADING MACHINE OPERATOR Virtual Visit [facility] Vascular [facility] [address] [place] [phone] Lisa Zambrano MD [address] [place], [place] [address] 12/29/2024 12:45 PM CDT Office Visit [facility] [address] [place], [place] [address] Explorer [address] [phone] Fabi Coates MD [address] [address] 12/29/2024 1:45 PM CDT Office Visit [facility] [address] [place], [place] [address] Explorer [address] [phone] Fabi Coates MD [address] [address] 06/01/2025 11:15 AM CDT Appointment [facility] Imaging [address] [place] [address] [place] [phone] Robin Zepeda MD [address] [place] [address] 06/04/2025 11:00 AM CDT Office Visit [facility] Neurosurgery Clinic [address] 3rd [place] [phone] Robin Zepeda MD [address] [place] [address] Usha Simon APRN [address] 6[address] documented as of this encounter Visit Diagnoses Not on filedocumented in this encounter Additional Health Concerns Infection Onset Date Last Indicated Resolved Time Rule Out COVID-19 09/13/2024 09/13/2024 09/13/2024 12:31 PM LOADING MACHINE OPERATOR documented as of this encounter Care Teams Analytical Scientist Relationship Specialty Start Date End Date Timmy Perez MD PCP - Obstetrics/Gynecology 03/02/08 08/07/15 Yung Madrigal MD RETIRED PCP - Orthopaedics Orthopedics 08/26/12 01/20/24 Winston Villatoro OD [facility] [place] [address] [place] [address] PCP - Ophthalmology Ophthalmology 02/11/13 Apple Sykes MD [facility] [place] [address] [place] [address] PCP - General Family Practice 05/04/13 10/25/16 Westley Bates MD XXX RETIRED XXX 701 [facility] 95 [place] [address] PCP - ENT Otolaryngology 05/14/13 07/28/18 [facility] G[facility]mez APRN THEATER TEACHER 3[address] [facility] [place] [address] PCP - General Nurse Practitioner 10/26/16 02/06/17 Clara Cornell MD [address] [facility] [place] [address] PCP - General Internal Medicine 02/07/17 09/20/20 Clara Cornell MD 8675 [place] [address] PCP - Assigned PCP 01/17/17 11/18/18 Denise Woodson APRN THEATER TEACHER [address] [place] [address] PCP - General Family Practice 09/21/20 Clara Cornell MD 8675 [place] [address] Assigned PCP 01/17/17 07/16/20 Denise Woodson APRN THEATER TEACHER [address] [place] [address] Assigned PCP 07/17/20 Usha Simon APRN THEATER TEACHER 9 [facility]2121[place], [place] [address] Nurse Practitioner Neurological Surgery 01/24/24 Dangelo Salinas MD [address] [place] 200 [facility] [place] [address] Neurology 01/27/24 Usha Simon APRN THEATER TEACHER [address] [address] Assigned Neuroscience Provider 02/06/24 03/07/24 Anastasia Stearns, RN Lead Clinical Documentation Consultant 02/06/24 Germaine Lopez, W Community Health Worker Primary Care - CC 02/18/24 Robin Zepeda MD [address] [address] Assigned Neuroscience Provider 03/08/24 05/07/24 Lisa Zambrano MD [address] [place] [address] Assigned Heart and Vascular Provider 05/08/24 07/07/24 Raul Hoyos MD [address] [address] Assigned Neuroscience Provider 05/08/24 07/07/24 Joya Lira RPH [address] [address] Pharmacist Pharmacist 05/25/24 Joya Lira RPH [address] [place] [address] Assigned MTM Pharmacist 06/08/24 Fabi Coates MD [address] [place] [address] 75 [place] [address] Genetics, Clinical 06/18/24 Robin Zepeda MD 909 [facility] GD1546LS [place] [address] Assigned Neuroscience Provider 07/08/24 08/07/24 Danna Cardenas PA-C 6405 [place] [address] Assigned Heart and Vascular Provider 07/08/24 Felicita Desai, RN Lead Clinical Documentation Consultant 07/14/24 07/28/24 Arthur Salas [facility] [address] [place] [address] Assigned Behavioral Health Provider 08/08/24 Randy Maradiaga DO [address] [place] [address] Assigned Neuroscience Provider 08/08/24 documented as of this encounter
--- OUTSIDE RECORDS SUMMARY | 2024-09-20 18:11 | XMS_ITS | Encounter Summary ---
Author Organization [place] Address [address] [place] [address] Care Team Providers Care Wire Weaver Name Role Phone Yung Madrigal MD Unavailable Unavailable Winston Villatoro OD Unavailable Serum, Clara Garland MD Primary Care Provider Serum, Clara Garland MD Unavailable [phone] Denise Woodson APRN [employer] DOC[employer] Unavailable [phone] Denise Woodson EDUCATIONAL THERAPY TEACHER [employer]USEUM DOCENT Primary Care Provider Usha Simon EDUCATIONAL THERAPY TEACHER MUSEUM DOCENT Unavailable Dangelo Salinas MD Unavailable Usha Simon EDUCATIONAL THERAPY TEACHER MUSEUM DOCENT Unavailable Anastasia Stearns RN Unavailable [phone] Germaine Lopez CHW Unavailable [phone] Robin Zepeda MD Unavailable [phone] Lisa Zambrano MD Unavailable + [phone] Raul Hoyos MD Unavailable Joya Lira [facility] Unavailable [phone] Joya Lira [facility] Unavailable [phone] Fabi Coates MD Unavailable [phone] Robin Catalan MD Unavailable Danna Cardenas PA-C Unavailable [phone] Felicita Desai RN Unavailable Unavailab Arthur RiosSW Unavailable [phone] Randy Maradiaga DO Unavailable + Encounter Details Date Type Department Care Team (Late st Contact Info) Description 06/16/2019 MyC Medical Advice [facility] 3305 [facility] [address] [place] [address] Serum, Clara Garland MD 8621 [place] [address] Social History Tobacco Use Types Packs/Day Years Used Date Smoking Tobacco: Never Smokeless Tobacco: Never Alcohol Use Standard Drinks/Week Comments Yes 0 (1 standard drink = 0.6 oz pur e alcohol) minimal PHQ-2 Answer Date Recorded PHQ-2 Score 0 09/23/2018 Comments No Sex and Gender Information Value Date Recorded Sex Assigned at Not on file Legal Sex 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 VALIDATION ARCHITECT Gender Identity Not on file Sexual Orientation Not on file 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 Not on file Not on file Not on file Not on file Not on file documented as of this encounter Plan of Treatment Upcoming Encounters Date Type Department Care Team (Late st Contact Info) Description 09/25/2024 11:00 AM VALIDATION ARCHITECT Office Visit [facility] [address] [place] [address] Denise Woodson APRN [facility] [address] [place] [address] 09/29/2024 9:00 AM VALIDATION ARCHITECT Virtual Visit [facility] Neurology [address] 3rd [place] [address] Randy Maradiaga DO [address] [place] [address] 10/09/2024 1:20 PM VALIDATION ARCHITECT Office Visit [facility] Heart [facility] 6405 [facility] [address] [place] [phone] Danna Cardenas PA-C 6405 [place] [address] 10/15/2024 11:00 AM VALIDATION ARCHITECT [facility] [address] [place] [phone] Denise Woodson APRN [employer] [address] [place], [place] [address] 10/30/2024 4:00 PM VALIDATION ARCHITECT Virtual Visit [facility] Vascular [facility] [address] [place] [phone] Lisa Zambrano MD [address] [place], [place] [address] 12/29/2024 12:45 PM CDT Office Visit [facility] [address] [place] [phone] Fabi Coates MD [address] [place] [address] 12/29/2024 1:45 PM CDT Office Visit [facility] [address] [place] [phone] Fabi Coates MD [address] [place] [address] 06/01/2025 11:15 AM CDT Appointment [facility] Specialty [facility] Imaging [address] [place] [phone] Robin Zepeda MD [address] [place] [address] 06/04/2025 11:00 AM CDT Office Visit [facility] Neurosurgery Clinic [address] 3rd [place] [phone] Robin Zepeda MD [address] [place] [address] Usha Simon APRN [employer] [address] [place] [address]12[address] documented as of this encounter Visit Diagnoses Not on filedocumented in this encounter Additional Health Concerns Infection Onset Date Last Indicated Resolved Time Rule Out COVID-19 09/13/2024 09/13/2024 09/13/2024 12:31 PM VALIDATION ARCHITECT Assessment Noted Time PHQ-9 Depression Total Score: 0 06/15/20 19 7:09 PM CDT documented as of this encounter Care Teams Wire Weaver Relationship Specialty Start Date End Date Yung Madrigal MD RETIRED PCP - Orthopaedics Orthopedics 08/26/12 01/20/24 Winston Villatoro OD [facility] [place] [address] [place] [address] PCP - Ophthalmology Ophthalmology 02/11/13 Clara Cornell MD [facility] [place] [address] [place] [address] PCP - General Internal Medicine 02/07/17 09/20/20 Denise Woodson APRN [employer] [address] [place] [address] PCP - General Family Practice 09/21/20 Clara Cornell MD 8675 [place] [address] Assigned PCP 01/17/17 07/16/20 Denise Woodson APRN [employer] [address] [place] [address] Assigned PCP 07/17/20 Usha Simon APRN [employer] [address] [place] [address]87[address] Nurse Practitioner Neurological Surgery 01/24/24 Dangelo Salinas MD [address] [place] [address] [place] [address] Neurology 01/27/24 Usha Simon APRN [employer] [address] [place] [address]30015 Assigned Neuroscience Provider 02/06/24 03/07/24 Anastasia Stearns, RN Lead Credit Verification Clerk 02/06/24 Germaine Lopez, CHW Community Health Worker Primary Care - CC 02/18/24 Robin Zepeda MD [address] [address]254[address] Assigned Neuroscience Provider 03/08/24 05/07/24 Lisa Zambrano MD 6405 [facility] [address] [place] [address] Assigned Heart and Vascular Provider 05/08/24 07/07/24 Raul Hoyos MD 909 [facility] [place] [address] Assigned Neuroscience Provider 05/08/24 07/07/24 Joya Lira [facility] [address] [place] [address] Pharmacist Pharmacist 05/25/24 Joya Lira [facility] [address] [place] [address] Assigned MTM Pharmacist 06/08/24 Fabi Coates MD [address] [place] [address] 75 [place] [address] Genetics, Clinical 06/18/24 Robin Zepeda MD 909 [facility]121[address] [place] [address] Assigned Neuroscience Provider 07/08/24 08/07/24 Danna Cardenas PA-C 6405 [place] [address] Assigned Heart and Vascular Provider 07/08/24 Felicita Desai, RN Lead Credit Verification Clerk 07/14/24 07/28/24 Arthur Salas BUSINESS SERVICES SALES REPRESENTATIVE [address] [place] [address] Assigned Behavioral Health Provider 08/08/24 Randy Maradiaga DO [address] [place] [address] Assigned Neuroscience Provider 08/08/24 documented as of this encounter
--- OUTSIDE RECORDS SUMMARY | 2024-09-20 18:11 | XMS_ITS | Encounter Summary ---
Author Organization [facility] Address [address] [place] [address] Care Team Providers Care Neon Tube Pumper Name Role Phone Timmy Perez MD Unavailable Unavailable Yung Madrigal MD Unavailable Unavailable Winston Villatoro OD Unavailable [phone] Apple Sykes MD Primary Care Provider Unavailab Westley Vera MD Unavailable [phone] GeorginaAlessandra Gómez APRN NURSING HOME ASSISTANT Primary Car e Provider Serum, Clara Garland MD Primary Care Provider Serum, Clara Garland MD Unavailable [phone] Serum, Clara Garland MD Unavailable [phone] Denise Woodson APRN NURSING HOME ASSISTANT Unavailable [phone] Denise Woodson APRN NURSING HOME ASSISTANT Primary Care Provider Usha Simon APRN NURSING HOME ASSISTANT Unavailable + [phone] Dangelo Salinas MD Unavailable Usha Simon APRN NURSING HOME ASSISTANT Unavailable + [phone] Anastasia Stearns RN Unavailable +[phone] Germaine Lopez CHW Unavailable [phone] Robin Zepeda MD Unavailable [phone] Lisa Zambrano MD Unavailable + [phone] Raul Hoyos MD Unavailable SorayaJoya [facility] Unavailable [phone] Soraya Joya [facility] Unavailable [phone] Fabi Coates MD Unavailable [phone] DuaneRobin MD Unavailable [phone] Danna Cardenas PA-C Unavailable [phone] Felicita Desai RN Unavailable Unavailab Arthur Rios SENIOR QUALITY ASSURANCE ANALYST Unavailable [phone] Randy Maradiaga DO Unavailable + Reason for Visit * Reason Onset Date Comments MyChart Communication 05/30/2013 Encounter Details Date Type Department Care Team (Latest Contact Info) Description 05/30/2013 MyC Medical Advice [facility] in [address] [address] Apple Sykes MD MyChart Communication Social History Tobacco Use Types Packs/Day Years Used Date Smoking Tobacco: Never Smokeless Tobacco: Never Alcohol Use Standard Drinks/Week Comments Yes 0 (1 standard drink = 0.6 oz pur e alcohol) minimal Comments No Sex and Gender Information Value Date Recorded Sex Assigned at Not on file Legal Sex 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 SCRAP PILER Gender Identity Not on file Sexual Orientation Not on file 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 documented as of this encounter Plan of Treatment Upcoming Encounters Date Type Department Care Team (Late st Contact Info) Description 09/25/2024 11:00 AM SCRAP PILER Office Visit [facility] [address] [place] [address] Denise Woodson APRN [facility] [address] [place] [address] 09/29/2024 9:00 AM SCRAP PILER Virtual Visit [facility] [address] [place] [phone] Randy Maradiaga, DO [address] [place], [place] [address] 10/09/2024 1:20 PM SCRAP PILER Office Visit [facility] Heart [facility] [address] [facility] [address] [place] [phone] Danna Cardenas PA-C [address] [place], [place] [address] 10/15/2024 11:00 AM SCRAP PILER Office Visit [facility] [address] [place] [phone] Denise Woodson, [place]ARRERA NURSING HOME ASSISTANT [address] [place], [place] [phone] 10/30/2024 4:00 PM SCRAP PILER Virtual Visit [facility] Vascular [facility] [address] [place] [phone] Lisa Zambrano MD [address] [place], [place] [address] 12/29/2024 12:45 PM CDT Office Visit [facility] [address] [place] [address] [address] [phone] Fabi Coates MD [address] [place] [address] 12/29/2024 1:45 PM CDT Office Visit [facility] [address] [place] [address] [address] [phone] Fabi Coates MD [address] [place] [address] [place] [address] 06/01/2025 11:15 AM CDT Appointment [facility] [address] [place] [address] Robin Zepeda MD [address] [place] [address] 06/04/2025 11:00 AM CDT Office Visit [facility] Neurosurgery [facility] [address] 3rd [place] [phone] Robin Zepeda MD [address] [place] [address] Usha Simon APRN [address] [address] documented as of this encounter Visit Diagnoses Not on filedocumented in this encounter Additional Health Concerns Infection Onset Date Last Indicated Resolved Time Rule Out COVID-19 09/13/2024 09/13/2024 09/13/2024 12:31 PM SCRAP PILER documented as of this encounter Care Teams Neon Tube Pumper Relationship Specialty Start Date End Date Timmy Perez MD PCP - Obstetrics/Gynecology 03/02/08 08/07/15 Yung Madrigal MD RETIRED PCP - Orthopaedics Orthopedics 08/26/12 01/20/24 Winston Villatoro OD [facility] [place] [address] [place] [address] PCP - Ophthalmology Ophthalmology 02/11/13 Apple Sykes MD [facility] [place] [address] [place] [address] PCP - General Family Practice 05/04/13 10/25/16 Westley Bates MD XXX RETIRED XXX [address] [facility] [address] [place] [address] PCP - ENT Otolaryngology 05/14/13 07/28/18 GeorginaAlessandra Gómez APRN NURSING HOME ASSISTANT [address] [facility] [place] [address] PCP - General Nurse Practitioner 10/26/16 02/06/17 Clara Cornell MD [facility] [facility] [place] [address] PCP - General Internal Medicine 02/07/17 09/20/20 Clara Cornell MD [address] [place] [address] PCP - Assigned PCP 01/17/17 11/18/18 Denise Woodson APRN NURSING HOME ASSISTANT [address] [place] [address] PCP - General Family Practice 09/21/20 Clara Cornell MD [address] [place] [address] Assigned PCP 01/17/17 07/16/20 Denise Woodson APRN NURSING HOME ASSISTANT [address] [place] [address] Assigned PCP 07/17/20 Usha Simon APRN NURSING HOME ASSISTANT [address] [place] [address] [address] Nurse Practitioner Neurological Surgery 01/24/24 Dangelo Salinas MD [address] [place] [address] Neurology 01/27/24 Usha Simon APRN NURSING HOME ASSISTANT [address] [address] Assigned Neuroscience Provider 02/06/24 03/07/24 Anastasia Stearns, RN Lead Estimating Manager 02/06/24 Germaine Lopez, W Community Health Worker Primary Care - CC 02/18/24 Robin Zepeda MD [address] [address] Assigned Neuroscience Provider 03/08/24 05/07/24 Lisa Zambrano MD [address] [facility] [address] [place] [address] Assigned Heart and Vascular Provider 05/08/24 07/07/24 Raul Hoyos MD [address] [address] Assigned Neuroscience Provider 05/08/24 07/07/24 Joya Lira RPH [address] [place] [address] Pharmacist Pharmacist 05/25/24 Joya Lira RPH [address] [place] [address] Assigned MTM Pharmacist 06/08/24 Fabi Coates MD [address] [facility] [address] [place] [address] Genetics, Clinical 06/18/24 Robin Zepeda MD [address] [facility] [address] [place] [address] Assigned Neuroscience Provider 07/08/24 08/07/24 Danna Cardenas PA-C [address] [place] [address] Assigned Heart and Vascular Provider 07/08/24 Felicita Desai, RN Lead Estimating Manager 07/14/24 07/28/24 Arthur Salas, [facility] [address] [place] [address] Assigned Behavioral Health Provider 08/08/24 Randy Maradiaga DO [address] [place] [address] Assigned Neuroscience Provider 08/08/24 documented as of this encounter
--- OUTSIDE RECORDS SUMMARY | 2024-09-20 18:11 | XMS_ITS | Clinical Summary ---
Author Organization [facility] Address [address] [place] [address] Care Team Providers Care Cooker Operator Name Role Phone Darius Shaw M.D. Primary Care Provider [phone] Source Comments Patient records contain information from all sites at [facility]. For routine questions regarding patient records, call [phone] during business hours, M-F 8:00 AM - 5:00 PM Central Time. Record requests for emergency care only can be directed to [phone] at any time.[facility] Allergies Active Allergy Reactions Criticality Noted Date [...] Encounters Date Type Department Care Team Description 08/19/2024 Orders Only [facility] PCP TH Darius Jiang M.D. Screening Mammogram Breast Cancer from Last 3 Months Immunizations Name Administration [...] week 01/10/2023 How often do you attend confucianism or mormonism serv ices? Never 01/10/2023 Do you belong [...] Answer Date Recorded PHQ-2 Score 3 01/10/2023 [facility] [place] of Occupat ional Health - Occupational Stress [...] AM CDT Legal Sex Female 8:24 AM PATIENT SERVICE SPECIALIST Gender Identity Female 02/11/2018 8:36 AM CDT Sexual Orientation Straight 02/11/2018 8: 36 AM CDT Last Filed Vital Signs Vital Sign Reading Time Taken Comments Blood Pressure 127/71 01/10/2023 3:45 PM CDT Pulse 76 01/10/2023 3:45 PM CDT Temperature 37 C (98.6 F) 01/10/2023 3:45 PM CDT Respiratory Rate 12 [...] 1976 Hepatitis C Screening 1976 Pneumococcal vaccine (0-49 years) (2 of 2 - PCV) 03/16/2005 03/16/2004 Asthma Action Plan 04/06/2017 04/06/2016 Depression Monitoring (PHQ-9) 05/12/2023 01/10/2023 Asthma Control Test Questionnaire 01/11/2024 01/10/2023, 04/06/2016 Asthma Management/Exacerbation Questionnaire (AMQ/AEQ) 01/11/2024 01/10/2023 COVID-19 Vaccine ( - season) 2024 07/07/2021, 11/20/2020 Influenza Vaccine (#1) 2024 , 06/23/2021, 07/27/2020, Additional history exists Mammogram 07/30/2024 07/30/2023, 07/17, 05/01/2022 (Performed elsewhere), Additional history exists Depression Monitoring (PHQ-9 for quality tracking) 09/16/2024 Cologuard 10/28/2025 10/28/2022 Colorectal Cancer Screening 10/28/2025 [...] this topic Medical Devices Implanted Type Area Anthropological Linguist Device Identifier Shelf Expiration Date Model / Serial / Lot Mesh Or Patch Mesh or Patch Heart Description:Amplatzer Septal Occluder Asd Closure Device 34mm - Sanders [id number] Implanted:Qty: 1 on 06/20/2006 Septal Defect Occluder Device Other/Legacy - See Implant Description Description:Device Manufactu [facility]. Device Status Text - [id number]. Procedures Procedure Name Priority Date/Time Associated Diagnosis Comments BI BREAST SCREENING BILATERAL WITH TOMOSYNTHESIS RAD - Routine (most inpatients and all outpatients) 07/30/2023 2:38 PM PATIENT SERVICE SPECIALIST Screening Mammogram Breast Cancer COLOGUARD Routine 10/28/2022 5:54 PM PATIENT SERVICE SPECIALIST Screening Cancer Colon VBG & LYTES CG8+, POCT, B Routine 09/30/2022 10:38 AM PATIENT SERVICE SPECIALIST LIPID PANEL, S Routine 02/13/2018 6:56 AM CDT Lizy Danlos Syndrome Chronic Obstructive Pulmonary Disease (HCC) Defect Atrial Septal (HCC) from Last 3 Months or Most Recently Relevant to Health Maintenance Results * BI Breast Screening Bilateral with Tomosynthesis (07/30/2023 2:38 PM PATIENT SERVICE SPECIALIST) Anatomical Region Laterality Modality Breast, Breast Imaging RST L OS, Breast Imaging ARZ LOS, Breast Imaging FLA LOS Bilateral Mammography 08/01/2023 12:2 8 PM PATIENT SERVICE SPECIALIST Impressions 08/01/2023 12:33 PM PATIENT SERVICE SPECIALIST Negative. RECOMMENDATION: Annual Screening Mammogram ASSESSMENT: BI-RADS: 1: Negative. Narrative 08/01/2023 12:33 PM PATIENT SERVICE SPECIALIST EXAM: BI BREAST SCREENING BILATERAL WITH TOMOSYNTHESIS Current study was evaluated with a Computer Aided Detection (CAD) system. INDICATION: Screening mammogram. COMPARISON: Prior exam(s) were available and reviewed for comparison. DENSITY: c. The breast(s) are heterogeneously dense, which may obscure small masses. FINDINGS: No mammographic findings of malignancy. Procedure Note Mikayla [...] Darius Shaw M.D. IM BI PROCEDURES Final R esult * Cologuard-Sent Out Lab (10/28/2022 5:54 PM PATIENT SERVICE SPECIALIST) Result Negative Negative 11/03/2022 2:48 AM PATIENT SERVICE SPECIALIST EXLI Comment: NEGATIVE TEST RESULT. A negative Cologuard result indicates a low likelihood that a colorectal cancer (CRC) or advanced adenoma (adenomatous polyps with more advanced pre-malignant features) is present. The chance that a person with a negative Cologuard test has a colorectal cancer is less than 1 in 1500 (negative predictive value >99.9%) or has an advanced adenoma is less than 5.3% (negative predictive value 94.7%). These data are based on a prospective cross-sectional study of 10,000 individuals at average risk for colorectal cancer who were screened with both Cologuard and colonoscopy. (Yenny Gates et al, N Engl J Med 2014;370(14):7920-4578) The normal value (reference range) for this assay is negative. COLOGUARD RE-SCREENING RECOMMENDATION: Periodic colorectal cancer screening is an important part of preventive healthcare for asymptomatic individuals at average risk for colorectal cancer. Following a negative Cologuard result, the [employer] Society and U.S. Multi-Society Task Force screening guidelines recommend a Cologuard re-screening interval of 3 years. References: [employer] Guideline for Colorectal Cancer Screening: https://www.cancer.org/cancer/rgsfy-nyguik-nlertz/detection- diagnosis-staging/acs-recommendations.html.; Ming MARTINEZ, Barbra TREJO, Erna FRANK, Colorectal Cancer Screening: Recommendations for Physicians and Patients from the U.S. Multi-Society Task Force on Colorectal Cancer Screening , Am J Gastroenterology 2017; 112:7954-3119. TEST DESCRIPTION: Composite algorithmic analysis of stool DNA-biomarkers with hemoglobin immunoassay. Quantitative values of individual biomarkers are not [...] (Yenny Adkins al, N Engl J Med 2014;370(14):4108-7277.) Cologuard may produce a false negative or false positive result (no colorectal cancer or precancerous polyp present at colonoscopy follow up). A negative Cologuard test result does not guarantee the absence of CRC or advanced adenoma (pre-cancer). The current Cologuard screening interval is every 3 years. ([employer] Society and U.S. Multi-Society Task Force). Cologuard performance data in a 10,000 patient pivotal study using colonoscopy as the reference method can be accessed at the following location: www.Beyond the Rack/results. Additional description of the Cologuard test process, warnings and precautions can be found at www.Penumbrard.com. Stool (Stool) 10/28/2022 5:5 4 PM PATIENT SERVICE SPECIALIST 10/30/2022 1:57 PM PATIENT SERVICE SPECIALIST us Darius Shaw M.D. LAB BODY FLUIDS AND STOOL S ORDERABLES Final Result [facility] [address] [place] [address] [facility] [address] [place] [address], [address] [place] [address] * Venous Blood Gas and Electrolytes CG8+, POCT (09/30/2022 10:38 AM PATIENT SERVICE SPECIALIST) [facility] Sample Site, POCT Venstick 09/30/2022 10:54 AM PATIENT SERVICE SPECIALIST PCSM Comment: ----ADDITIONAL INFORMATION---- Performed at the Point of Care pH, Venous, POCT, B 7.43 7.32 - 7.43 09/30/2022 10:54 AM PATIENT SERVICE SPECIALIST PCSM Comment: ----ADDITIONAL INFORMATION---- Performed at the Point of Care pCO2, Venous, POCT, B 46 41 - 51 mm Hg 09/30/2022 10:54 AM PATIENT SERVICE SPECIALIST PCSM Comment: ----ADDITIONAL INFORMATION---- Performed at the Point of Care pO2, Venous, POCT, B 25 Not Applicable mm Hg 09/30/2022 10:54 AM PATIENT SERVICE SPECIALIST PCSM Comment: ----ADDITIONAL INFORMATION---- Performed at the Point of Care Base Excess, Venous, POCT, B 6 Not Applicable mmol/L 09/30/2022 10:54 AM PATIENT SERVICE SPECIALIST PCSM Comment: ----ADDITIONAL INFORMATION---- Performed at the Point of Care HCO3, Venous, POCT, B 31 Not Applicable mmol/L 09/30/2022 10:54 AM PATIENT SERVICE SPECIALIST PCSM Comment: ----ADDITIONAL INFORMATION---- Performed at the Point of Care Sodium, POCT, B 140 135 - 145 mmol/L 09/30/2022 10:54 AM PATIENT SERVICE SPECIALIST PCSM Comment: ----ADDITIONAL INFORMATION---- Performed at the Point of Care Potassium, POCT, B 4.3 3.6 - 5.2 mmol/L 09/30/2022 10:54 AM PATIENT SERVICE SPECIALIST PCSM Comment: ----ADDITIONAL INFORMATION---- Performed at the Point of Care Calcium, Ionized, POCT, B 5.20 4.65 - 5.30 mg/dL 09/30/2022 10:54 AM PATIENT SERVICE SPECIALIST PCSM Comment: ----ADDITIONAL INFORMATION---- Performed at the Point of Care Glucose, POCT, B 117 70 - 140 mg/dL 09/30/2022 10:54 AM PATIENT SERVICE SPECIALIST PCSM Comment: ----ADDITIONAL INFORMATION---- Performed at the Point of Care Hematocrit, POCT, B 44.0 35.5 - 44.9 % 09/30/2022 10:54 AM PATIENT SERVICE SPECIALIST PCSM Comment: ----ADDITIONAL INFORMATION---- Performed at the Point of Care Blood 09/30/2022 10:3 8 AM PATIENT SERVICE SPECIALIST 09/30/2022 10:54 AM PATIENT SERVICE SPECIALIST us Unknown Provider LAB POCT ORDERABLES - DEVICE Fi nal Result POC RST [facility] INPATIENT LABS [address] [place] [address], [facility] POC [address] [place] [address] * (ABNORMAL) Lipid Panel (02/13/2018 6:56 AM CDT) Pathologist [facility] Cholesterol, Total 200(H) mg/dL 02/13/2018 8:08 AM CDT [facility] Comment: ----REFERENCE VALUE---- Desirable: < 200 Borderline high: 200 - 239 High: > or = 240 Triglycerides 143 mg/dL 02/13/2018 8:08 AM CDT [facility] Comment: ----REFERENCE VALUE---- Normal: <150 Borderline high: 150-199 High: 200-499 Very high: > or =500 Cholesterol, HDL, S 49(L) >=50 mg/dL 02/13/2018 8:08 AM CDT [facility] Calculated LDL 122 mg/dL 02/13/2018 8:08 AM CDT [facility] Comment: ----REFERENCE VALUE---- Desirable: <100 Above Desirable: 100-129 Borderline high: 130-159 High: 160-189 Very high: > or =190 Cholesterol, Non-HDL, Calculated 151 mg/dL 02/13/2018 8:08 AM CDT [facility] Comment: ----REFERENCE VALUE---- Desirable: <130 Above Desirable: 130-159 Borderline high: 160-189 High: 190-219 Very high: > or =220 Blood 02/13/2018 6:56 AM CDT 02/13/2018 7:18 AM CDT Dominique Mcgowan M.D. LAB BLOOD ADD-ON Final Result [facility] [address] [place] [address], [facility] from Last 3 Months or Most Recently Relevant to Health Maintenance Insurance [facility] Advance Directives For more information, please contact: [phone] * Full Code (Latest Code Status on File) Date Activated Date Inactivated Comments 09/30/2022 4:41 PM 10/02/2022 6:08 PM Question Answer Comments Full Code: Discussed Care Teams Cooker Operator Relationship Specialty Start Date End Date Darius Shaw M.D. [id number] [place] [phone] PCP - General Family Medicine 09/27/22
--- OUTSIDE RECORDS SUMMARY | 2024-09-20 18:11 | XMS_ITS ---
Author Organization [facility] Address [address] [place] [address] Care Team Providers Care Gold Marker Name Role Phone Unavailable Unavailable Unavailable Surgery Details Not on file Complications Check Surgery Details section. Procedure Estimated Blood Loss Check Surgery Details section. Procedure Findings Check Surgery Details section. Procedure Specimens Taken Check Surgery Details section.
--- OUTSIDE RECORDS SUMMARY | 2024-09-20 18:11 | XMS_ITS | Referral Summary ---
Author Organization [facility] Address [address] [place] [address] Care Team Providers Care Pump Mechanic Name Role Phone Darius Shaw M.D. Primary Care Provider [phone] Source Comments Patient records contain information from all sites at [facility]. For routine questions regarding patient records, call [phone] during business hours, M-F 8:00 AM - 5:00 PM Central Time. Record requests for emergency care only can be directed to [phone] at any time.[facility] Encounters Date Type Department Care Team Description 08/19/2024 Orders Only [facility] PCP TH MNT Darius Shaw M.D. Screening Mammogram Breast Cancer from Last 3 Months Allergies Active Allergy [...] week 01/10/2023 How often do you attend restorationist or scientologist serv ices? Never 01/10/2023 Do you belong [...] Answer Date Recorded PHQ-2 Score 3 01/10/2023 [facility] - [...] AM CDT Legal Sex Female 8:24 AM FILTER WASHER Gender Identity Female 02/11/2018 8:36 AM CDT [...] on file Medical Devices Implanted Type Area Sunglass Clip Attacher Device Identifier Shelf Expiration Date Model / Serial / Lot Mesh Or Patch Mesh or Patch Heart Description:Amplatzer Septal Occluder Asd Closure Device 34mm - Sanders [id number] Implanted:Qty: 1 on 06/20/2006 Septal Defect Occluder Device Other/Legacy - See Implant Description Description:Device Manufactu rer - [facility]. Device Status Text - [id number]. Procedures Procedure Name Priority Date/Time Associated Diagnosis Comments BI BREAST SCREENING BILATERAL WITH TOMOSYNTHESIS RAD - Routine (most inpatients and all outpatients) 07/30/2023 2:38 PM FILTER WASHER Screening Mammogram Breast Cancer COLOGUARD Routine 10/28/2022 5:54 PM FILTER WASHER Screening Cancer Colon VBG & LYTES CG8+, POCT, B Routine 09/30/2022 10:38 AM FILTER WASHER LIPID PANEL, S Routine 02/13/2018 6:56 AM CDT Lizy Danlos Syndrome Chronic Obstructive Pulmonary Disease (HCC) Defect Atrial Septal (HCC) from Last 3 Months or Most Recently Relevant to Health Maintenance Results * BI Breast Screening Bilateral with Tomosynthesis (07/30/2023 2:38 PM FILTER WASHER) Anatomical Region Laterality Modality Breast, Breast Imaging RST L OS, Breast Imaging ARZ LOS, Breast Imaging FLA LOS Bilateral Mammography 08/01/2023 12:2 8 PM FILTER WASHER Impressions 08/01/2023 12:33 PM FILTER WASHER Negative. RECOMMENDATION: Annual Screening Mammogram ASSESSMENT: BI-RADS: 1: Negative. Narrative 08/01/2023 12:33 PM FILTER WASHER EXAM: BI BREAST SCREENING BILATERAL WITH TOMOSYNTHESIS [...] ASSESSMENT: BI-RADS: 1: Negative. Darius Shaw M.D. IMSilviano BI PROCEDURES Final R esult * Cologuard-Sent Out Lab (10/28/2022 5:54 PM FILTER WASHER) Result Negative Negative 11/03/2022 2:48 AM FILTER WASHER EXLI Comment: NEGATIVE TEST RESULT. A negative [...] Gates et al, N Engl J Med 2014;370(14):9261-0811) The normal value (reference range) for this assay is negative. COLOGUARD RE-SCREENING RECOMMENDATION: Periodic colorectal cancer screening is an important part of preventive healthcare for asymptomatic individuals at average risk for colorectal cancer. Following a negative Cologuard result, the [place] Cancer Society and U.S. Multi-Society Task Force screening guidelines recommend a Cologuard re-screening interval of 3 years. References: [place] [employer] Guideline for Colorectal Cancer Screening: https://www.cancer.org/cancer/skmsn-veqljq-cayvbv/detection- diagnosis-staging/acs-recommendations.html.; Ming DK, Barbra CR, Erna FRANK, Colorectal Cancer Screening: Recommendations for Physicians and Patients from the U.S. Multi-Society Task Force on Colorectal Cancer Screening , Am J Gastroenterology 2017; 112:3652-7054. TEST DESCRIPTION: Composite algorithmic analysis of stool [...] Melchor. et al, N Engl J Med 2014;370(14):3115-0347.) Cologuard may produce a false negative or false positive result (no colorectal cancer or precancerous polyp present at colonoscopy follow up). A negative Cologuard test result does not guarantee the absence of CRC or advanced adenoma (pre-cancer). The current Cologuard screening interval is every 3 years. ([place] Cancer Society and U.S. Multi-Society Task Force). Cologuard performance data in a 10,000 patient pivotal study using colonoscopy as the reference method can be accessed at the following location: www.Digital Envoy.com/results. Additional description of the Cologuard test process, warnings and precautions can be found at www.cologuard.com. Stool (Stool) 10/28/2022 5:5 4 PM FILTER WASHER 10/30/2022 1:57 PM FILTER WASHER Darius S Shaw M.D. LAB BODY FLUIDS AND STOOL S ORDERABLES Final Result [facility] [address] [place] [address] EXLI [facility] [address] [facility], [address] [place] [address] * Venous Blood Gas and Electrolytes CG8+, POCT (09/30/2022 10:38 AM FILTER WASHER) Sample Site, POCT Venstick 09/30/2022 10:54 AM FILTER WASHER PCSM Comment: ----ADDITIONAL INFORMATION---- Performed at the Point of Care pH, Venous, POCT, B 7.43 7.32 - 7.43 09/30/2022 10:54 AM FILTER WASHER PCSM Comment: ----ADDITIONAL INFORMATION---- Performed at the Point of Care pCO2, Venous, POCT, B 46 41 - 51 mm Hg 09/30/2022 10:54 AM FILTER WASHER PCSM Comment: ----ADDITIONAL INFORMATION---- Performed at the Point of Care pO2, Venous, POCT, B 25 Not Applicable mm Hg 09/30/2022 10:54 AM FILTER WASHER PCSM Comment: ----ADDITIONAL INFORMATION---- Performed at the Point of Care Base Excess, Venous, POCT, B 6 Not Applicable mmol/L 09/30/2022 10:54 AM FILTER WASHER PCSM Comment: ----ADDITIONAL INFORMATION---- Performed at the Point of Care HCO3, Venous, POCT, B 31 Not Applicable mmol/L 09/30/2022 10:54 AM FILTER WASHER PCSM Comment: ----ADDITIONAL INFORMATION---- Performed at the Point of Care Sodium, POCT, B 140 135 - 145 mmol/L 09/30/2022 10:54 AM FILTER WASHER PCSM Comment: ----ADDITIONAL INFORMATION---- Performed at the Point of Care Potassium, POCT, B 4.3 3.6 - 5.2 mmol/L 09/30/2022 10:54 AM FILTER WASHER PCSM Comment: ----ADDITIONAL INFORMATION---- Performed at the Point of Care Calcium, Ionized, POCT, B 5.20 4.65 - 5.30 mg/dL 09/30/2022 10:54 AM FILTER WASHER PCSM Comment: ----ADDITIONAL INFORMATION---- Performed at the Point of Care Glucose, POCT, B 117 70 - 140 mg/dL 09/30/2022 10:54 AM FILTER WASHER PCSM Comment: ----ADDITIONAL INFORMATION---- Performed at the Point of Care Hematocrit, POCT, B 44.0 35.5 - 44.9 % 09/30/2022 10:54 AM FILTER WASHER PCSM Comment: ----ADDITIONAL INFORMATION---- Performed at the Point of Care Blood 09/30/2022 10:3 8 AM FILTER WASHER 09/30/2022 10:54 AM FILTER WASHER us Unknown Provider LAB POCT ORDERABLES - DEVICE Fi nal Result POC RST [facility] [address] [place] [address], [facility] [address] [place] [address] * (ABNORMAL) Lipid Panel (02/13/2018 6:56 AM CDT) Pathologist [facility] Cholesterol, Total 200(H) mg/dL 02/13/2018 8:08 AM [...] Mcgowan M.D. LAB BLOOD ADD-ON Final Result [facility] [address] [place] [address], [facility] from Last 3 Months or Most Recently Relevant to Health Maintenance Insurance [facility] Advance Directives For more information, please contact: [phone] * Full Code (Latest Code Status on File) Date Activated Date Inactivated Comments 09/30/2022 4:41 PM 10/02/2022 6:08 PM Question Answer Comments Full Code: Discussed Care Teams Pump Mechanic Relationship Specialty Start Date End Date Darius Shaw M.D. [address] [place] [phone] PCP - General Family Medicine 09/27/22
--- OUTSIDE RECORDS SUMMARY | 2024-09-20 18:11 | XMS_ITS | Encounter Summary ---
Author Organization [facility] Address [address] [place] [address] Care Team Providers Care Obstetrics Tech Name Role Phone Timmy Perez MD Unavailable Unavailable Yung Madrigal MD Unavailable Unavailable Frw, None Primary Care Provider Unavailabl e Winston Villatoro OD Unavailable [phone] Apple Sykes MD Primary Care Provider Unavailab Westley Vera MD Unavailable [phone] Georgina-Alessandra Gómez APRN COLLISION MECHANIC Primary Car e Provider Serum, Clara Garland MD Primary Care Provider Serum, Clara Garlnad MD Unavailable +[phone] Serum, Clara Garland MD Unavailable [phone] Denise Woodson APRN COLLISION MECHANIC Unavailable [phone] Denise Woodson APRN COLLISION MECHANIC Primary Care Provider Usha Simon APRN COLLISION MECHANIC Unavailable + [phone] Dangelo Salinas MD Unavailable Usha Simon APRN COLLISION MECHANIC Unavailable + [phone] Anastasia Stearns RN Unavailable +[phone] Germaine Lopez CHW Unavailable +[phone] Robin Zepeda MD Unavailable [phone] Lisa Zambrano MD Unavailable [phone] Raul Hoyos MD Unavailable Soraya Joya [facility] Unavailable [phone] Joya Lira [facility] Unavailable [phone] Fabi Coates MD Unavailable [phone] Robin Zepeda MD Unavailable [phone] Danna Cardenas PA-C Unavailable +[phone] Felicita Desai RN Unavailable Unavailab gabino Arthur Salas REEL SLITTER Unavailable +[phone] Randy Maradiaga DO Unavailable + Encounter Details Date Type Department Care Team (Late st Contact Info) Description 01/30/2006 [facility] [place] Inpatient Dept [address] [place] [address] Frw, Inpatient Provider Social History Tobacco Use Types Packs/Day Years Used Date Smoking Tobacco: Never Passive Smoke Exposure: Never Smokeless Tobacco: Never Alcohol Use Standard Drinks/Week Comments Not Currently 0 (1 standard drink = 0.6 oz pur e alcohol) minimal Comments No Sex and Gender Information Value Date Recorded Sex Assigned at Not on file Legal Sex 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 SMUTTER Gender Identity Not on file Sexual Orientation [...] pain. PROCEDURE: TOTAL VAGINAL HYSTERECTOMY. SURGEON: Chris CLAIMS ADJUSTER: Radha ANESTHESIA: Spinal ESTIMATED BLOOD LOSS: 100 [...] st Contact Info) Description 09/25/2024 11:00 AM SMUTTER Office Visit [facility] [address] [place] [address] Denise Woodson APRN [facility] [address] [place], [place] [id number] 09/29/2024 9:00 AM SMUTTER Virtual Visit [facility] Neurology [place] [address] [facility] 3rd [place] [phone] Randy Maradiaga, [address] [place] [address] 10/09/2024 1:20 PM SMUTTER Office Visit [facility] Heart [facility] [address] [facility] [address] [place] [phone] Danna Cardenas PA-C [address] [place], [place] [address] 10/15/2024 11:00 AM SMUTTER Office Visit [facility] [address] [place] [phone] Denise Woodson APRN COLLISION MECHANIC [address] [place], [place] [phone] 10/30/2024 4:00 PM SMUTTER Virtual Visit [facility] Vascular [facility] [address] [place] [phone] Lisa Zambrano MD [address] [place] [address] 12/29/2024 12:45 PM CDT Office Visit [facility] [address] [place] [address] Ave [address] [phone] Fabi Coates MD [address] [facility] 75 [place], [place] [address] 12/29/2024 1:45 PM CDT Office Visit [facility]ty [facility] [address] [place] [address] Ave [facility] [address] [phone] Fabi Coates MD [address] [facility] [address] [place] [address] 06/01/2025 11:15 AM CDT Appointment [facility] Center Imaging [address] [facility] [address] [place] [phone] Robin Zepeda MD [address] [place] [address] 06/04/2025 11:00 AM CDT Office Visit [facility] Neurosurgery Clinic [address] 3rd [place] [phone] Robin Zepeda MD [address] [place] [address] Usha Simon APRN [address] [address] documented as of this encounter Visit Diagnoses Not on filedocumented in this encounter Additional Health Concerns Infection Onset Date Last Indicated Resolved Time Rule Out COVID-19 09/13/2024 09/13/2024 09/13/2024 12:31 PM SMUTTER documented as of this encounter Care Teams Obstetrics Tech Relationship Specialty Start Date End Date Timmy Perez MD PCP - Obstetrics/Gynecology 03/02/08 08/07/15 Yung Madrigal MD RETIRED PCP - Orthopaedics Orthopedics 08/26/12 01/20/24 Frw, None PCP - General Family Practice 08/26/12 05/03/13 Winston Villatoro OD [facility] [address] [place] [address] PCP - Ophthalmology Ophthalmology 02/11/13 Apple Sykes MD [facility] [address] [place] [address] PCP - General Family Practice 05/04/13 10/25/16 Westley Bates MD XXX RETIRED XXX [address] [facility] [address] [place] [address] PCP - ENT Otolaryngology 05/14/13 07/28/18 [facility] APRN COLLISION MECHANIC [address] [facility] [place] [address] PCP - General Nurse Practitioner 10/26/16 02/06/17 Clara Cornell MD [address] [facility] [place] [address] PCP - General Internal Medicine 02/07/17 09/20/20 Clara Cornell MD [address] [place] [address] PCP - Assigned PCP 01/17/17 11/18/18 Denise Woodson APRN COLLISION MECHANIC [address] [place] [address] PCP - General Family Practice 09/21/20 Clara Cornell MD [address] [place] [address] Assigned PCP 01/17/17 07/16/20 Denise Woodson APRN COLLISION MECHANIC [address] [place] [place] [address] Assigned PCP 07/17/20 Usha Simon APRN COLLISION MECHANIC [address] [address] Nurse Practitioner Neurological Surgery 01/24/24 Dangelo Salinas MD [address] [place] [address] Neurology 01/27/24 Usha Simon APRN COLLISION MECHANIC [address] [address] Assigned Neuroscience Provider 02/06/24 03/07/24 Anastasia Stearns, RN Lead Ged Teacher 02/06/24 Germaine Lopez, W Community Health Worker Primary Care - CC 02/18/24 Robin Zepeda MD [address] [address] Assigned Neuroscience Provider 03/08/24 05/07/24 Lisa Zambrano MD [address] [place] [address]375 Assigned Heart and Vascular Provider 05/08/24 07/07/24 Raul Hoyos MD [address] 9400[address] Assigned Neuroscience Provider 05/08/24 07/07/24 Joya Lira [facility] [address] [place], [place] [phone] Pharmacist Pharmacist 05/25/24 Joya Lira [facility] [address] [place] [address] Assigned MTM Pharmacist 06/08/24 Fabi Coates MD [address] [facility] [address] [place], [place] [address] Genetics, Clinical 06/18/24 Robin Zepeda MD [address] [facility] [id number] [place], [place] [address] Assigned Neuroscience Provider 07/08/24 08/07/24 Danna Cardenas PA-C [address] [place] [address] Assigned Heart and Vascular Provider 07/08/24 Felicita Desai, RN Lead Ged Teacher 07/14/24 07/28/24 Arthur Salas [facility] [address] [place] [address] Assigned Behavioral Health Provider 08/08/24 Randy Maradiaga DO [address] [place] [address] Assigned Neuroscience Provider 08/08/24 documented as of this encounter
--- OUTSIDE RECORDS SUMMARY | 2024-09-20 18:11 | XMS_ITS | Encounter Summary ---
Author Organization [facility] Address [address] [place] [address] Care Team Providers Care Anesthesiology Technologist Name Role Phone Timmy Perez MD Unavailable Unavailable Yung Madrigal MD Unavailable Unavailable Winston Villatoro OD Unavailable [phone] Apple Sykes MD Primary Care Provider Unavailab eWstley Vera MD Unavailable [phone] GeorginaAlessandra Gómez APRN FIRE SPRINKLER FITTER Primary Car e Provider Serum, Clara Garland MD Primary Care Provider Serum, Clara Garland MD Unavailable [phone] Serum, Clara Garland MD Unavailable [phone] Denise Woodson APRN FIRE SPRINKLER FITTER Unavailable [phone] Denise Woodson APRN FIRE SPRINKLER FITTER Primary Care Provider Usha Simon APRN FIRE SPRINKLER FITTER Unavailable + [phone] Dangelo Salinas MD Unavailable Usha Simon APRN FIRE SPRINKLER FITTER Unavailable + [phone] Anastasia Stearns RN Unavailable +[phone] Germaine Lopez CHW Unavailable +[phone] Robin Zepeda MD Unavailable [phone] Lisa Zambrano MD Unavailable + [phone] Raul Hoyos MD Unavailable SorayaJoya [facility] Unavailable +[phone] Soraya Joya [facility] Unavailable +[phone] Fabi Coates MD Unavailable [phone] DuaneRobin MD Unavailable [phone] Danna Cardenas PA-C Unavailable +[phone] Felicita Desai RN Unavailable Unavailab Arthur Rios VARN[facility] COOKER Unavailable +[phone] Randy Maradiaga DO Unavailable + Encounter Details Date Type Department Care Team (Late st Contact Info) Description 05/26/2013 MyC Medical Advice [facility] [place] Orthopedics [address] [place] [address] Yung Madrigal MD RETIRED Social History Tobacco Use Types Packs/Day Years Used Date Smoking Tobacco: Never Smokeless Tobacco: Never Alcohol Use Standard Drinks/Week Comments Yes 0 (1 standard drink = 0.6 oz pur e alcohol) minimal Comments No Sex and Gender Information Value Date Recorded Sex Assigned at Not on file Legal Sex 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 WARP KNIT OPERATOR Gender Identity Not on file Sexual Orientation Not on file 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 [address] [place] [address] 09/29/2024 9:00 AM WARP KNIT OPERATOR Virtual Visit [facility] Neurology [address] [place] [phone] Randy Maradiaga, DO [address] [place], [place] [address] 10/09/2024 1:20 PM WARP KNIT OPERATOR Office Visit [facility] Heart [facility] [address] [facility] [address] [place] [phone] Danna Cardenas PA-C [address] [place], [place] [address] 10/15/2024 11:00 AM WARP KNIT OPERATOR [facility] [address] [place] [address] Denise Woodson APRN FIRE SPRINKLER FITTER [address] [place], [place] 0[address] 10/30/2024 4:00 PM WARP KNIT OPERATOR Virtual Visit [facility] Vascular Clinic [place] [address] [place] [phone] Lisa Zambrano MD [address] [place], [place] [address] 12/29/2024 12:45 PM CDT Office Visit [facility] [address] [place] [address] Ave [address] [phone] Fabi Coates MD [address] [place] [address] 12/29/2024 1:45 PM CDT Office Visit [facility] Pediatric Specialty Clinic [address] [place] [address] Ave [address] [phone] Fabi Coates MD [address] [place] [address] 06/01/2025 11:15 AM CDT Appointment [facility] Care Center Imaging [address] [place] [phone] Robin Zepeda MD [address] [place] [address] 06/04/2025 11:00 AM CDT Office Visit [facility] Neurosurgery Clinic [address] 3rd [place] [phone] Robin Zepeda MD [address] [place] [address] Usha Simon APRN [address] 562035 documented as of this encounter Visit Diagnoses Not on filedocumented in this encounter Additional Health Concerns Infection Onset Date Last Indicated Resolved Time Rule Out COVID-19 09/13/2024 09/13/2024 09/13/2024 12:31 PM WARP KNIT OPERATOR documented as of this encounter Care Teams Anesthesiology Technologist Relationship Specialty Start Date End Date Timmy Perez MD PCP - Obstetrics/Gynecology 03/02/08 08/07/15 Yung Madrigal MD RETIRED PCP - Orthopaedics Orthopedics 08/26/12 01/20/24 Winston Villatoro OD [facility] [place] [address] [place] [address] PCP - Ophthalmology Ophthalmology 02/11/13 Apple Sykes MD [facility] [address] [place] [address] PCP - General Family Practice 05/04/13 10/25/16 Westley Bates MD XXX RETIRED XXX [address] [facility] 95 [place] [address] PCP - ENT Otolaryngology 05/14/13 07/28/18 [facility] G[facility]mez APRN FIRE SPRINKLER FITTER [address] [facility] [place] [address] PCP - General Nurse Practitioner 10/26/16 02/06/17 Clara Cornell MD [address] [facility] [place] [address] PCP - General Internal Medicine 02/07/17 09/20/20 Clara Cornell MD [address] [place] [address] PCP - Assigned PCP 01/17/17 11/18/18 Denise Woodson APRN FIRE SPRINKLER FITTER [address] [facility] [address] PCP - General Family Practice 09/21/20 Clara Cornell MD [address] [place] [address] Assigned PCP 01/17/17 07/16/20 Denise Woodson APRN FIRE SPRINKLER FITTER [address] [place] [address] Assigned PCP 07/17/20 Usha Simon APRN FIRE SPRINKLER FITTER 909 [facility] [address] Nurse Practitioner Neurological Surgery 01/24/24 Dangelo Salinas MD [address] [place], [place] [phone] Neurology 01/27/24 Usha Simon APRN FIRE SPRINKLER FITTER [address] [address] Assigned Neuroscience Provider 02/06/24 03/07/24 Anastasia Stearns, RN Lead Mold Operator 02/06/24 Germaine Lopez, W Community Health Worker Primary Care - CC 02/18/24 Robin Zepeda MD [address] [address] Assigned Neuroscience Provider 03/08/24 05/07/24 Lisa Zambrano MD [address] [facility] [address] [place] [address] Assigned Heart and Vascular Provider 05/08/24 07/07/24 Raul Hoyos MD [address] [address] Assigned Neuroscience Provider 05/08/24 07/07/24 Joya Lira R[facility] [address] [place] [address] Pharmacist Pharmacist 05/25/24 Joya Lira RPH [address] [place] [address] Assigned MTM Pharmacist 06/08/24 Fabi Coates MD [address] [place] [address] 75 [place] [address] Genetics, Clinical 06/18/24 Robin Zepeda MD 909 [facility] [id number] [place] [address] Assigned Neuroscience Provider 07/08/24 08/07/24 Danna Cardenas PA-C [address] [place] [address] Assigned Heart and Vascular Provider 07/08/24 Felicita Desai, GEMA Lead Mold Operator 07/14/24 07/28/24 Arthur Salas, [facility] [address] [place] [address] Assigned Behavioral Health Provider 08/08/24 Randy Maradiaga DO [address] [place] [address] Assigned Neuroscience Provider 08/08/24 documented as of this encounter
--- OUTSIDE RECORDS SUMMARY | 2024-09-20 18:11 | XMS_ITS | Encounter Summary ---
Author Organization [facility] Address [address] [place] [address] Care Team Providers Care Sewing Supervisor Name Role Phone Timmy Perez MD Unavailable Unavailable Yung Madrigal MD Unavailable Unavailable Frw, None Primary Care Provider Unavailabl e Winston Villatoro OD Unavailable [phone] Apple Sykes MD Primary Care Provider Unavailab Westley Vera MD Unavailable [phone] Georgina-Alessandra Gómez APRN JOB COST ESTIMATOR Primary Car e Provider Serum, Clara Garland MD Primary Care Provider Serum, Clara Garland MD Unavailable [phone] Serum, Clara Garland MD Unavailable [phone] Denise Woodson APRN JOB COST ESTIMATOR Unavailable [phone] Denise Woodson APRN JOB COST ESTIMATOR Primary Care Provider Usha Simon APRN JOB COST ESTIMATOR Unavailable + [phone] Dangelo Salinas MD Unavailable Usha Simon APRN JOB COST ESTIMATOR Unavailable + [phone] Anastasia Stearns RN Unavailable +[phone] Germaine Lopez CHW Unavailable +[phone] Robin Zepeda MD Unavailable [phone] Lisa Zambrano MD Unavailable [phone] Raul Hoyos MD Unavailable Soraya Joya [facility] Unavailable +[phone] Soraya Joya [facility] Unavailable [phone] Fabi Coates MD Unavailable [phone] Robin Zepeda MD Unavailable +[phone] Danna Cardenas PA-C Unavailable +[phone] Felicita Desai RN Unavailable Unavailab Arthur Rios [facility] Unavailable +[phone] Randy Maradiaga DO Unavailable + Reason for Visit * Reason Onset Date Comments Medication Question 04/21/2013 Farhan Saez [facility] Encounter Details Date Type Department Care Team (Late st Contact Info) Description 04/21/2013 Telephone [facility] in [address] [address] Janna Rodriguez, dust collector treater Question ([facility]) Social History Tobacco Use Types Packs/Day Years Used Date Smoking Tobacco: Never Smokeless Tobacco: Never Alcohol Use Standard Drinks/Week Comments Yes 0 (1 standard drink = 0.6 oz pur e alcohol) minimal Comments No Sex and Gender Information Value Date Recorded Sex Assigned at Not on file Legal Sex 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 FIELD OPERATIONS TECHNICIAN Gender Identity Not on file Sexual [...] st Contact Info) Description 09/25/2024 11:00 AM FIELD OPERATIONS TECHNICIAN Office Visit [facility] [address] [place] [phone] Denise Woodson APRN JOB COST ESTIMATOR [address] [place], [place] [id number] 09/29/2024 9:00 AM FIELD OPERATIONS TECHNICIAN Virtual Visit [facility] [address] [place] [phone] Randy Maradiaga, [address] 6[address] 10/09/2024 1:20 PM FIELD OPERATIONS TECHNICIAN Office Visit [facility] [address] [facility] [address] [place] [phone] Danna Cardenas PA-C 6405 [place], [place] 855585 10/15/2024 11:00 AM FIELD OPERATIONS TECHNICIAN Office Visit [facility] [address] [place] [phone] Denise Woodson APRN JOB COST ESTIMATOR [address] [place], [place] 5107368 10/30/2024 4:00 PM FIELD OPERATIONS TECHNICIAN Virtual Visit [facility] [place] [address] [place] [phone] Lisa Zambrano MD [address] [place] [address] 12/29/2024 12:45 PM CDT Office Visit [facility] [address] [place] [address] Ave [facility] [address] [phone] Fabi Coates MD [address] [place] [address] 12/29/2024 1:45 PM CDT Office Visit [facility] [address] [place] [address] Ave [facility] [address] [phone] Fabi Coates MD [address] [place] [address] 06/01/2025 11:15 AM CDT Appointment [facility] [place] [address] [facility] [address] [place] [phone] Robin Zepeda MD [address] [place] [address] 06/04/2025 11:00 AM CDT Office Visit [facility] [address] [place] [phone] Robin Zepeda MD [address] [place] [address] Usha Simon, SPA COORDINATOR JOB COST ESTIMATOR [address] [facility] [place] [address] documented as of this encounter Visit Diagnoses Not on filedocumented in this encounter Additional Health Concerns Infection Onset Date Last Indicated Resolved Time Rule Out COVID-19 09/13/2024 09/13/2024 09/13/2024 12:31 PM FIELD OPERATIONS TECHNICIAN documented as of this encounter Care Teams Sewing Supervisor Relationship Specialty Start Date End Date Timmy Perez MD PCP - Obstetrics/Gynecology 03/02/08 08/07/15 Yung Madrigal MD RETIRED PCP - Orthopaedics Orthopedics 08/26/12 01/20/24 Frw, None PCP - General Family Practice 08/26/12 05/03/13 Winston Villatoro OD [facility] [place] [address] [place] [address] PCP - Ophthalmology Ophthalmology 02/11/13 Apple Sykes MD [facility] [place] [address] [place] [address] PCP - General Family Practice 05/04/13 10/25/16 Westley Bates MD XXX RETIRED XXX [address] [place] [address] PCP - ENT Otolaryngology 05/14/13 07/28/18 Georgina-Alessandra Gómez APRN JOB COST ESTIMATOR [address] [facility] [place] [id number] PCP - General Nurse Practitioner 10/26/16 02/06/17 Clara Cornell MD [address] [facility] [place] [id number] PCP - General Internal Medicine 02/07/17 09/20/20 Clara Cornell MD 8675 [place] [address] PCP - Assigned PCP 01/17/17 11/18/18 Denise Woodson APRN JOB COST ESTIMATOR [address] [facility] [place] [address] PCP - General Family Practice 09/21/20 Clara Cornell MD [address] [place] [address] Assigned PCP 01/17/17 07/16/20 Denise Woodson APRN JOB COST ESTIMATOR [address] [facility] [place] [address] Assigned PCP 07/17/20 Usha Simon APRN JOB COST ESTIMATOR [address] [id number] Nurse Practitioner Neurological Surgery 01/24/24 Dangelo Salinas MD [address] [facility] [address] [address] Neurology 01/27/24 Usha Simon APRN JOB COST ESTIMATOR [address] 780885 Assigned Neuroscience Provider 02/06/24 03/07/24 Anastasia Stearns, RN Lead Scientist Engineer 02/06/24 Germaine Lopez, CHW Community Health Worker Primary Care - CC 02/18/24 Robin Zepeda MD [address] [address] Assigned Neuroscience Provider 03/08/24 05/07/24 Lisa Zambrano MD 6[address] [facility] [place] [address] Assigned Heart and Vascular Provider 05/08/24 07/07/24 Raul Hoyos MD [address] [place] [address] Assigned Neuroscience Provider 05/08/24 07/07/24 Joya Lira [facility] [address] [address] Pharmacist Pharmacist 05/25/24 Joya Lira [facility] [address] [place] [address] Assigned MTM Pharmacist 06/08/24 Fabi Coates MD [address] [place] [address] 75 [place] [address] Genetics, Clinical 06/18/24 Robin Zepeda MD [address] [place] [address] Assigned Neuroscience Provider 07/08/24 08/07/24 Danna Cardenas PA-C 6[address] [place] [address] Assigned Heart and Vascular Provider 07/08/24 Felicita Desai, RN Lead Scientist Engineer 07/14/24 07/28/24 Arthur Salas LICSW [address] [address] Assigned Behavioral Health Provider 08/08/24 Randy Maradiaga DO [address] [place] [address] Assigned Neuroscience Provider 08/08/24 documented as of this encounter
--- OUTSIDE RECORDS SUMMARY | 2024-09-20 18:11 | XMS_ITS | Encounter Summary ---
Author Organization [facility] Address [address] [place] [address] Care Team Providers Care Enterprise Software Engineer Name Role Phone Timmy Perez MD Unavailable Unavailable Yung Madrigal MD Unavailable Unavailable Frw, None Primary Care Provider Unavailabl e Winston Villatoro OD Unavailable [phone] Apple Sykes MD Primary Care Provider Unavailab Westley Vera MD Unavailable [phone] Georgina-Alessandra Gómez APRN SPECIAL SKILLS OFFICER Primary Car e Provider Serum, Clara Garland MD Primary Care Provider Serum, Clara Garland MD Unavailable [phone] Serum, Clara Garland MD Unavailable [phone] Denise Woodson APRN SPECIAL SKILLS OFFICER Unavailable [phone] Denise Woodson APRN SPECIAL SKILLS OFFICER Primary Care Provider Usha Simon APRN SPECIAL SKILLS OFFICER Unavailable + [phone] Dangelo Salinas MD Unavailable Usha Simon APRN SPECIAL SKILLS OFFICER Unavailable + [phone] Anastasia Stearns RN Unavailable [phone] Germaine Lopez CHW Unavailable +[phone] Robin Zepeda MD Unavailable [phone] Lisa Zambrano MD Unavailable [phone] Raul Hoyos MD Unavailable Soraya Joya [facility] Unavailable [phone] Soraya Joya [facility] Unavailable [phone] Fabi Coates MD Unavailable [phone] Robin Zepeda MD Unavailable Danna Cardenas PA-C Unavailable +[phone] Felicita Desai RN Unavailable Unavailab Arthur Rios TRUCK DRIVER SUPERVISOR Unavailable +[phone] Randy Maradiaga DO Unavailable + Encounter Details Date Type Department Care Team (Late st Contact Info) Description 01/31/2006 [facility] [place] VETERINARY TECHNICIAN ASSISTANT [address] [place] [address] Timmy Perez MD Social History Tobacco Use Types Packs/Day Years Used Date Smoking Tobacco: Never Passive Smoke Exposure: Never Smokeless Tobacco: Never Alcohol Use Standard Drinks/Week Comments Not Currently 0 (1 standard drink = 0.6 oz pur e alcohol) minimal Comments No Sex and Gender Information Value Date Recorded Sex Assigned at Not on file Legal Sex 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 DAIRY MANUFACTURING TECHNOLOGIST Gender Identity Not on file Sexual Orientation Not on file 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 Not on file Not on file Not on file Not on file Not on file Not on file documented as of this encounter Plan of Treatment Upcoming Encounters Date Type Department Care Team (Late st Contact Info) Description 09/25/2024 11:00 AM DAIRY MANUFACTURING TECHNOLOGIST Office Visit [facility] [address] [place] [address] Deinse Woodson APRN [facility] [address] [place] [address] 09/29/2024 9:00 AM DAIRY MANUFACTURING TECHNOLOGIST Virtual Visit [facility] [address] 3rd [place] [phone] Randy Maradiaga, [address] [address] 10/09/2024 1:20 PM DAIRY MANUFACTURING TECHNOLOGIST Office Visit [facility] Heart [facility] [address] [facility] [address] [place] [phone] Danna Cardenas PA-C 6405 [place] [address] 10/15/2024 11:00 AM DAIRY MANUFACTURING TECHNOLOGIST Office Visit [facility] [address] [place] [phone] Denise Woodson, [place] SPECIAL SKILLS OFFICER [address] [place], [place] 14[address] 10/30/2024 4:00 PM DAIRY MANUFACTURING TECHNOLOGIST Virtual Visit [facility] Vascular [facility] [address] [place] [phone] Lisa Zambrano MD [address] [place] [address] 12/29/2024 12:45 PM CDT Office Visit [facility] [address] [place] [address] Ave [address] [phone] Fabi Coates MD [address] [place] [address] 75 [place], [place] [address] 12/29/2024 1:45 PM CDT Office Visit [facility] [address] [place] [address] Ave [address] [phone] Fabi Coates MD [address] [place] [address] [facility] 75 [place] [address] 06/01/2025 11:15 AM CDT Appointment [facility] [address] [place] [address] [place] [phone] Robin Zepeda MD [address] [place] [address] 06/04/2025 11:00 AM CDT Office Visit [facility] [address] 3rd [place] [phone] Robin Zepeda MD [address] [place] [address] Usha Simon APRN [address] [address] documented as of this encounter Visit Diagnoses Not on filedocumented in this encounter Additional Health Concerns Infection Onset Date Last Indicated Resolved Time Rule Out COVID-19 09/13/2024 09/13/2024 09/13/2024 12:31 PM DAIRY MANUFACTURING TECHNOLOGIST documented as of this encounter Care Teams Enterprise Software Engineer Relationship Specialty Start Date End Date Timmy Perez MD PCP - Obstetrics/Gynecology 03/02/08 08/07/15 Yung Madrigal MD RETIRED PCP - Orthopaedics Orthopedics 08/26/12 01/20/24 Frw, None PCP - General Family Practice 08/26/12 05/03/13 Winston Villatoro OD [facility] [place] [address] [place] [address] PCP - Ophthalmology Ophthalmology 02/11/13 Apple Sykes MD [facility] [place] [address] [place] [address] PCP - General Family Practice 05/04/13 10/25/16 Westley Bates MD XXX RETIRED XXX [address] [place] [address] PCP - ENT Otolaryngology 05/14/13 07/28/18 Alessandra Cabrales APRN SPECIAL SKILLS OFFICER [address] [facility] [place] [address] PCP - General Nurse Practitioner 10/26/16 02/06/17 Clara Cornell MD [address] [facility] [place] [address] PCP - General Internal Medicine 02/07/17 09/20/20 Clara Cornlel MD 8675 [place] [address] PCP - Assigned PCP 01/17/17 11/18/18 Denise Woodson APRN SPECIAL SKILLS OFFICER [address] [place] [address] PCP - General Family Practice 09/21/20 Clara Cornell MD [address] [place] [address] Assigned PCP 01/17/17 07/16/20 Denise Woodson APRN SPECIAL SKILLS OFFICER [address] [place] [address] Assigned PCP 07/17/20 Usha Simon APRN SPECIAL SKILLS OFFICER [address] [address] Nurse Practitioner Neurological Surgery 01/24/24 Dangelo Salinas MD [address] [place] [address] Neurology 01/27/24 Usha Simno APRN SPECIAL SKILLS OFFICER [address] [address] Assigned Neuroscience Provider 02/06/24 03/07/24 Anastasia Stearns, RN Lead Suction Worker 02/06/24 Germaine Lopez, [facility] Community Health Worker Primary Care - CC 02/18/24 Robin Zepeda MD [address] [address] Assigned Neuroscience Provider 03/08/24 05/07/24 Lisa Zambrano MD [address] [place] [address] Assigned Heart and Vascular Provider 05/08/24 07/07/24 Raul Hoyos MD [address] [address] Assigned Neuroscience Provider 05/08/24 07/07/24 Joya Lira [facility] [address] [place], [place] [phone] Pharmacist Pharmacist 05/25/24 Joya Lira [facility] [address] [place] [address] Assigned MTM Pharmacist 06/08/24 Fabi Coates MD 420 [facility] 75 [place], [place] 2[address] Genetics, Clinical 06/18/24 Robin Zepeda MD 909 [facility] [address] [place], [place] [address] Assigned Neuroscience Provider 07/08/24 08/07/24 Danna Cardenas PA-C [address]405 [place] [address] Assigned Heart and Vascular Provider 07/08/24 Felicita Desai, GEMA Lead Suction Worker 07/14/24 07/28/[address] [facility] [address] [place] [address] Assigned Behavioral Health Provider 08/08/24 Randy Maradiaga DO [address] [place] [address] Assigned Neuroscience Provider 08/08/24 documented as of this encounter
--- OUTSIDE RECORDS SUMMARY | 2024-09-20 18:11 | XMS_ITS | Encounter Summary ---
Author Organization [facility] Address [address] [place] [address] Care Team Providers Care Digital Content Marketing Manager Name Role Phone Darius Shaw M.D. Primary Care Provider [phone] Reason for Referral * Outpatient (Routine) - Authorized Specialty Diagnoses / Procedures Referred By Contac t Referred To Contact Diagnoses Screening Mammogram Breast Cancer Procedures BI Breast Screening Bilateral with Tomosynthesis Darius Shaw M.D. [address] [place] [address] Phone: tel: fax: [facility] Referral ID Status Reason Start Date Expiration Date V isits Requested Visits Authorized [id number] Authorized 08/19/2024 08/19/2025 1 1 K PITCHER Encounter Details Date Type Department Care Team (Late st Contact Info) Description 08/19/2024 Orders Only [facility] PCP [facility] MNT Darius Shaw M.D. [address] [place] [phone] Screening Mammogram Breast Cancer Social History Tobacco Use Types Packs/Day Years [...] How often do you attend temple or orthodoxy serv ices? Never 01/10/2023 Do you belong [...] Answer Date Recorded PHQ-2 Score 3 01/10/2023 [facility] - Occupational Stress [...] money to buy more. Never true 01/11/20 Within the past 12 months, t he [...] AM CDT Legal Sex Female 8:24 AM BRICK PITCHER Gender Identity Female 02/11/2018 8:36 AM CDT Sexual Orientation Straight 02/11/2018 8: 36 AM CDT documented as of this encounter Plan of Treatment Scheduled Orders Name Type Priority Associated Diagnoses Order Schedule BI Breast Screening Bilateral with Tomosynthesis Imaging RAD - Routine (most inpatients and all outpatients) Screening Mammogram Breast Cancer Expected: 09/18/2024, Expires: 02/15/2025 documented as of this encounter Visit Diagnoses Diagnosis Screening Mammogram Breast Cancer documented in this encounter Additional Health Concerns Assessment Noted Time PHQ-9 Depression Total Score: 16 01/10/ 023 8:13 AM CDT documented as of this encounter Care Teams Digital Content Marketing Manager Relationship Specialty Start Date End Date Darius Shaw M.D. [address] [place] [address] PCP - General Family Medicine 09/27/22 documented as of this encounter
--- OUTSIDE RECORDS SUMMARY | 2024-09-20 18:12 | XMS_ITS | Encounter Summary ---
Author Organization [facility] Address [address] [place] [address] Care Team Providers Care Apron Operator Name Role Phone Darius Shaw M.D. Primary Care Provider [phone] Encounter Details Date Type Department Care Team (Late st Contact Info) Description 05/12/2013 Historical Ophthalmology [facility] Jonathan Bonilla M.D. [address] [place] [phone] Social History Tobacco Use Types Packs/Day Years Used Date Smoking Tobacco: Never Assessed Comments Unknown Sex and Gender Information Value Date Recorded Sex Assigned at Female 02/11/2018 8:36 AM CDT Legal Sex Female 8:24 AM POWDER PRESS OPERATOR Gender Identity Female 02/11/2018 8:36 AM CDT [...] corneal thickness CDM Reports - EYEGEN Id: [id number] Status: Fnl documented in this encounter Plan of Treatment Not on file documented as of this encounter Visit Diagnoses Not on filedocumented in this encounter Additional Health Concerns Infection Onset Date Last Indicated Resolved Time COVID19 Pending 07/11/2020 07/11/2020 07/12/2020 5 :56 PM CDT COVID19 Pending 07/17/2020 07/17/2020 07/17/2020 9 :18 PM POWDER PRESS OPERATOR COVID19 Pending 09/19/2020 09/19/2020 10/09/2020 4 :45 AM POWDER PRESS OPERATOR COVID19 Pending 10/25/2020 10/26/2020 10/27/2020 9 :59 AM POWDER PRESS OPERATOR COVID19 Pending 06/03/2021 06/03/2021 06/03/2021 9 :40 AM CDT COVID19 Pending 06/03/2021 06/03/2021 06/03/2021 1 0:36 PM CDT COVID19 Pending 08/09/2021 08/09/2021 08/11/2021 1 2:57 AM POWDER PRESS OPERATOR COVID19 Pending 06/26/2022 06/26/2022 06/26/2022 5 :47 PM CDT Assessment Noted Time PHQ-9 Depression Total Score: 8 09/18/19 13 7:41 AM POWDER PRESS OPERATOR documented as of this encounter Care Teams Apron Operator Relationship Specialty Start Date End Date Darius Shaw M.D. [address] [place] [phone] PCP - General Family Medicine 09/27/22 documented as of this encounter
--- NOTE | 2024-09-20 18:32 | ED.GENADULT ---
HPI - General Adult General Date Seen: 09/20/24 Chief complaint: Allergic Reaction Stated complaint: rxn to antibiotic, burning/numb lips Time Seen by Provider: 09/20/24 18:20 History of Present Illness HPI narrative: This is a 49-year-old female with a very complex past medical history. Past history includes anx/dep, chronic neck pain, EDS, fibromyalgia as well as a very complex neurologic history. 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 After complications of the procedure at [place] she and her family switched her neurology care to the [facility] system. She had also been having palpitations at chest pains and tachycardias several months ago with Cardiology through [facility]. She was in the ER on -09/08/2024 with concern that she may have aspirated on the day prior. Chest x-ray was clear. She had another visit to the ER on 09/15/2024. She was feeling short of breath and having some left-sided chest pain. She had workup with EKG, troponin, and CT scan of her chest that was reassuring. CT scan did show mosaic attenuation lungs possibly reflecting small airways disease. No other new acute infiltrate. Treated with a 5 day burst of prednisone. She notes that she really did not get better on the prednisone. In fact she had increasing cough and trouble breathing. She saw her PCP in clinic 2 days ago on Saturday. She apparently had repeat labs that showed a rising white count. Her doctor told her that the rising white count was probably indicative of a bacterial infection and started her on doxycycline. She says that she started the doxy and cycling Saturday and noted significant improvement in her cough and chest symptoms. However beginning yesterday, on Saturday she started having some tingling burning on her lips and hands (without any rash or blisters or other visible lesions) that has gotten worse. She now has a burning feeling in her mouth and on most of the skin of her arms and legs and torso. No other new hives or blisters. She suspect she is probably having an adverse reaction to the doxycycline in. She wanted to go to the urgent care today to get a new antibiotic but they were closed. She came here to the ER today. She ideally wants to get a new antibiotic so that she can stop the doxycycline. Hopefully the burning will get better so she is motivated to get back to work tomorrow. She is not having any hives. No shortness of breath. No swelling in her throat. No new trouble swallowing. No trouble breathing. No abdominal pain or vomiting or GI symptoms. Related Data Home Medications ?Medication ?Instructions ?Recorded ?Confirmed fluticasone furoate 200 1 inh inhalation DAILY 07/03/22 09/20/24 mcg-vilanterol 25 mcg/dose inhalation powder (Breo Ellipta) albuterol sulfate 90 mcg/actuation 2 puff inhalation Q6H PRN 08/01/22 09/20/24 aerosol inhaler magnesium 250 mg tablet 250 mg PO HS 08/02/22 09/20/24 trazodone 100 mg tablet 100 mg PO HS sleep 08/02/22 09/20/24 cetirizine 10 mg tablet (Zyrtec) 10 mg PO DAILY 10/08/23 09/20/24 lorazepam 1 mg tablet 0.5 - 1 mg PO DAILY PRN dizziness 05/07/24 09/20/24 levetiracetam 750 mg tablet 375 mg PO BID 05/08/24 09/20/24 (Keppra) citalopram 10 mg tablet mg PO 09/20/24 doxycycline monohydrate 100 mg 100 mg PO BID 09/20/24 09/20/24 capsule Previous Rx's ?Medication ?Instructions ?Recorded ketorolac 10 mg tablet 10 mg PO Q6H PRN pain 5 days #20 07/03/22 tabs aspirin 81 mg tablet,delayed 81 mg PO DAILY #30 tabs 05/08/24 release prednisone 20 mg tablet 40 mg (2 x 20 mg) PO DAILY #10 tabs 09/15/24 Allergies Allergy/AdvReac Type Severity Reaction Status Date / Time bupropion Allergy Intermediate Diarrhea Verified 09/20/24 18:15 codeine Allergy Intermediate epigastric Verified 09/20/24 18:15 pain erythromycin base Allergy Intermediate stomach Verified 09/20/24 18:15 upset, diarrhea doxycycline Allergy Mild burning Verified 09/20/24 18:15 sensation in hands and feet morphine AdvReac Verified 09/20/24 18:15 [facility] Medical History History of cerebrovascular disease ?Z86.79 - Personal history of other diseases of the circulatory system (ICD-10) Dural arteriovenous fistula (~12/2023) ?I67.1 - Cerebral aneurysm, nonruptured (ICD-10) Fibromuscular dysplasia ?I77.3 - Arterial fibromuscular dysplasia (ICD-10) Seizure (01/14/24) ?R56.9 - Unspecified convulsions (ICD-10) Ischemic cerebrovascular accident (CVA) (01/09/24) ?I63.9 - Cerebral infarction, unspecified (ICD-10) History of cerebral angiography (01/09/24) ?Z98.890 - Other specified postprocedural states (ICD-10) Headache ?R51.9 - Headache, unspecified (ICD-10) 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, unspecified (ICD-10) Mild persistent asthma (09/27/22) ?J45.30 - Mild persistent asthma, uncomplicated (ICD-10) Asthma ?J45.909 - Unspecified asthma, uncomplicated (ICD-10) History of blood transfusion (1994) ?Z92.89 - Personal history of other medical treatment (ICD-10) History of vitamin D deficiency ?Z86.39 - Personal history of other endocrine, nutritional and metabolic disease (ICD-10) Anxiety and depression ?F41.9 - Anxiety disorder, unspecified (ICD-10) ?F32.A - Depression, unspecified (ICD-10) Fibromyalgia ?M79.7 - Fibromyalgia (ICD-10) Mild persistent asthma ?J45.30 - Mild persistent asthma, uncomplicated (ICD-10) H/O bronchopulmonary dysplasia ?Z87.09 - Personal history of other diseases of the respiratory system (ICD-10) Stage 1 chronic kidney disease (11/16/20) ?N18.1 - Chronic kidney disease, stage 1 (ICD-10) Simple renal cyst (10/2020) ?N28.1 - Cyst of kidney, acquired (ICD-10) Asthma ?J45.909 - Unspecified asthma, uncomplicated (ICD-10) Surgical History History of laparoscopy ?Z98.890 - Other specified postprocedural states (ICD-10) S/P dilation and curettage (1994) ?Z98.890 - Other specified postprocedural states (ICD-10) H/O tubal ligation ?Z98.51 - Tubal ligation status (ICD-10) Status post excision of lipoma (2011) ?Z98.890 - Other specified postprocedural states (ICD-10) ?Z86.018 - Personal history of other benign neoplasm (ICD-10) History of medial meniscus repair of left knee (08/04/13) ?Z98.890 - Other specified postprocedural states (ICD-10) History of laparoscopic cholecystectomy (09/29/20) ?Z90.49 - Acquired absence of other specified parts of digestive tract (ICD-10) History of hysterectomy for benign disease (2005) ?Z90.710 - Acquired absence of both cervix and uterus (ICD-10) History of catheter-based closure of atrial septal defect (06/2006) ?Z87.74 - Personal history of (corrected) congenital malformations of heart and circulatory system (ICD-10) Family History Maternal Grandmother Stroke Paternal Grandfather Diabetes Daughter Depression Social History Narrative: She recently moved to [place]. 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 She has a college education She exercises 5 days a week with walking in treadmill 2M She does not smoke She does not drink alcohol or use recreational drugs What is your current living situation?: I presently have a place to live Problems where you live: no known problems Problems where you live details: na In the past 12 months, utilities in danger of being shut off: no In past 12 months, lack of transportation kept you from medical appts, meetings, work, or getting things needed for daily living: no In the past 12 mos, have been you worried that your food would run out before you had money to buy more?: never true In the past 12 mos, the food you bought just didn't last and you didn't have money to buy more?: never true Highest level of school completed/degree received: Associate degree: occupational, technical, vocational program Smoking Status: Never smoker Do you use any of these nicotine containing products: None Second hand tobacco smoke exposure: No How often do you have a drink containing alcohol: never How often do you have six or more drinks on one occasion: Never AUDIT-C Alcohol total score: 0 Non-prescribed substance use: denies use Caffeine: Yes How often does anyone, including family, friends and others, physically hurt you: never How often does anyone, including family, friends and others, insult or talk down to you: never How often does anyone, including family, friends and others, threaten you with harm: never How often does anyone, including family, friends and others, scream or curse at you: never Are you using contraception or practicing any form of control: Yes (hysterectomy) service: No Exam Narrative: Exam Narrative: Constitutional: Appears well-developed and well-nourished. Alert. Conversant and remembers me from previous ER visits. Non toxic. HENT: Head: Atraumatic. Nose: Nose normal. Mouth/Throat: Oral mucosa is clear and moist. no trismus. Pharynx normal. Tonsils symmetric. No tonsillar enlargement, erythema, or exudate. Eyes: Conjunctivae normal. EOM normal. Pupils equal, round, and reactive to light. No scleral icterus. Neck: Normal range of motion. Neck supple. No tracheal deviation present. Cardiovascular: Normal rate, regular rhythm. No gallop. No friction rub. No murmur heard. Symmetric radial artery pulses Pulmonary/Chest: Effort normal. No stridor. No respiratory distress. No wheezes. No rales. No rhonchi . No tenderness. Musculoskeletal: RUE: Normal range of motion. No tenderness. No deformity LUE: Normal range of motion. No tenderness. No deformity RLE: Normal range of motion. No edema. No tenderness. No deformity LLE: Normal range of motion. No edema. No tenderness. No deformity Lymph: No cervical adenopathy. Neurological: Alert and oriented to person, place, and time. Normal strength. CN II-VII intact. No sensory deficit. GCS eye subscore is 4. GCS verbal subscore is 5. GCS motor subscore is 6. Normal coordination Skin: Skin is warm and dry. No rash noted. No pallor. Normal capillary refill. Psychiatric: Normal mood. Normal affect. Const: Vital Signs, click to edit/add: Vital Signs - 24 hr 09/20/24 18:05 Temperature 96.4 F L Pulse Rate [Pulse Oximeter] 78 Respiratory Rate 16 Blood Pressure [Ri ght Upper Arm] 153/87 H Pulse Oximetry 96 Oxygen Delivery Me thod Room Air Course Vital Signs Vital signs: Initial Vital Signs Temperature 96.4 F L 09/20/24 18:05 Temperature Source Temporal Artery Scan 09/20/24 18:05 Pulse Rate 78 09/20/24 18:05 Respiratory Rate 16 09/20/24 18:05 Blood Pressure 153/87 H 09/20/24 18:05 Blood Pressure Mean 109 H 09/20/24 18:05 Blood Pressure Position Sitting 09/20/24 18:05 Pulse Oximetry 96 09/20/24 18:05 Oxygen Delivery Method Room Air 09/20/24 18:05 Vital Signs Temperature 96.4 F L 09/20/24 18:05 Pulse Rate 78 09/20/24 18:05 Respiratory Rate 16 09/20/24 18:05 Blood Pressure 153/87 H 09/20/24 18:05 Pulse Oximetry 96 09/20/24 18:05 Oxygen Delivery Method Room Air 09/20/24 18:05 Temperature 96.4 F L 09/20/24 18:05 Pulse Rate 78 09/20/24 18:05 Respiratory Rate 16 09/20/24 18:05 Blood Pressure 153/87 H 09/20/24 18:05 Pulse Oximetry 96 09/20/24 18:05 Oxygen Delivery Method Room Air 09/20/24 18:05 Medical Decision Making MDM Narrative Medical decision making narrative: This a very pleasant woman with an unfortunate history of possible vascular Lizy-Danlos, arterial dural sinus fistula with stroke after angiogram, presents for evaluation of possible medication reaction to doxycycline.. She has noted a burning feeling that starting on her lips and hands and has now spread into her mouth, face, torso, arms and legs since she started on the doxycycline 2 days ago on Saturday. She does not have any visible lesions or blisters or desquamation in her mouth or on her skin to suggest dress or Martinez-Dada syndrome. No clear objective signs of a IgE mediated allergic reaction. No airway involvement, bronchospasm, GI symptoms, hypotension, or other sign of anaphylaxis. Cause of her symptoms is not clear. She is suspicious that this may be a reaction to the doxycycline. I do not see any clear rash to explain the burning she is feeling. It is possible that this is an adverse reaction to that antibiotic but not definitive. Will have her stop the doxycycline. Also consider side effect of prednisone such as escalating anxiety causing her symptoms. She is not objectively anxious here in the ER tonight. However sometimes prednisone can cause neuropsychiatric side effects. She will also stop the prednisone. I am hopeful that stopping both medicines can help lead to resolution of the burning she is feeling. , lack of serious systemic symptoms, lack of respiratory difficulty and no oral or pharyngeal swelling, would not admit at this time for anaphylaxis. There is no signs of anaphylactic shock. I will give her prescription for Azithromycin which is a different antibiotic that might treat pulmonary pathogens. She will not start it for at least the next 12-24 hours until after her current symptoms are resolved. Prescription for Azithromycin 500 on day 1, 250 days 2 through 5. through [facility]. Discharge Plan Discharge Clinical Impression: Medication reaction Patient Disposition: Home, Self-Care Condition: Stable Instructions: General Allergic Reaction (ED) Additional Instructions: As we discussed, the cause of the burning feeling in your mouth and on your skin is not clear at this time. This could be a reaction to the doxycycline or it could be a reaction to the prednisone. Right now we do not see any serious signs of life-threatening allergic reaction. Please stop both the doxycycline and the prednisone tonight. Before you start the new antibiotic (Azithromycin) give your body 12-24 hours to start to get better. If you have worsening trouble breathing, swelling in your throat, or any problems, please come back to the ER right away. Prescriptions: No Action cetirizine [Zyrtec] 10 mg tablet 10 mg PO DAILY albuterol sulfate 90 mcg/actuation HFA aerosol inhaler 2 puff inhalation Q6H PRN magnesium 250 mg tablet 250 mg PO HS citalopram 10 mg tablet PO doxycycline monohydrate 100 mg capsule 100 mg PO BID fluticasone furoate-vilanterol [Breo Ellipta] 200-25 mcg/dose blister with device 1 inh INHALATION DAILY ketorolac 10 mg tablet 10 mg PO Q6H PRN (Reason: pain) 5 Days Qty: 20 0RF trazodone 100 mg tablet 100 mg PO HS lorazepam 1 mg tablet 0.5 - 1 mg PO DAILY PRN (Reason: dizziness) levetiracetam [Keppra] 750 mg tablet 375 mg PO BID aspirin 81 mg Tablet,Delayed Release (Dr/Ec) 81 mg PO DAILY Qty: 30 0RF prednisone 20 mg tablet 40 mg PO DAILY Qty: 10 0RF Follow Up/Referrals: EFRAÍN MAYA RA, CURATOR OF COLLECTIONS, BRANDING MACHINE OPERATOR [Primary Care Provider] - Stand Alone Forms: [employer] Medical Info Instructions
--- OUTSIDE RECORDS SUMMARY | 2024-09-20 19:18 | XMS_ITS | Clinical Summary ---
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 CHOL/HDL RATIO 3.98 <4.51 [facility] LDL CHOLESTEROL 115 <131 mg/dL [facility] PATIENT STATUS Fasting [facility] Blood specimen (specimen) BLOOD SPECIMEN / Unknown 08/03/2011 10:31 AM CLUTCH INSPECTOR 08/03/2011 10:23 AM CLUTCH INSPECTOR us Jasvir Pickens MD CHEMISTRY Final Re sult [facility] [address] [place] [address] from Last 3 Months or Most Recently Relevant to Health Maintenance Insurance [employer]HAELPRIMO MCNEAL [id number] Advance Directives * Full Code (Latest Code Status on File) Date Activated Date Inactivated Comments 01/09/2024 7:44 AM 01/09/2024 6:26 PM Question Answer Comments Code Status Discussion: Reviewed Preferences Care Teams Bearing Grinder Relationship Specialty Start Date End Date Keira Irvin MD [address] [place] [address] PCP - General Family Practice 01/08/24
--- OUTSIDE RECORDS SUMMARY | 2024-09-20 19:19 | XMS_ITS | Referral Summary ---
Author Organization [place] Address [address] [place] [address] Care Team Providers Care Entry Level Software Engineer Name Role Phone Winston Villaotro OD Unavailable [phone] Denise Woodson APRN PAPER BAGS SEWING MACHINE OPERATOR Unavailable [phone] Denise Woodson APRN PAPER BAGS SEWING MACHINE OPERATOR Primary Care Provider Usha Simon APRN PAPER BAGS SEWING MACHINE OPERATOR Unavailable [phone] Dangelo Salinas MD Unavailable Anastasia Stearns RN Unavailable [phone] Germaine Lopez CH Unavailable [phone] Joya Lira [facility] Unavailable Joya Lira [facility] Unavailable [phone] Fabi Coates MD Unavailable [phone] Danna Cardenas PA-C Unavailable [phone] Arthur Salas TEXTILE SCREEN PRINTER Unavailable [phone] Randy Maradiaga DO Unavailable + Encounters Date Type Department Care Team Description 09/18/[address] [phone] Denise Woodson APRN CNP Erroneous encounter-disregard 09/18/2024 Travel 09/18/2024 1:00 PM RN NEW GRADUATE Office Visit [facility] [address] [place] [phone] Denise Woodson APRN CNP Chronic obstructive pulmonary disease without exacerbation (H) (Primary Dx); Acute cough; BPD (bronchopulmonary dysplasia) (H) 09/16/2024 Travel 09/14/2024 MyC Medical Advice [facility] [address] [place] [phone] Denise Woodson APRN CNP 09/13/2024 Travel 09/13/2024 10:54 AM RN NEW GRADUATE - 09/13/2024 4:42 PM RN NEW GRADUATE Emergency [facility] Emergency Dept [address] [place] [phone] Sameer Castillo, COPD with acute exacerbation (H); Upper respiratory tract infection, unspecified type Discharge Disposition: Home or Self Care 09/11/2024 Travel 09/11/2024 8:00 AM RN NEW GRADUATE Ancillary Procedure [facility] [address] [facility] [address] [place] [address] Randy Maradiaga, Seizure-like activity (H); History of seizure 2024 Travel 09/04/2024 [facility] [address] [place] [phone] Qing Copeland 09/04/2024 Travel 09/04/2024 11:00 AM RN NEW GRADUATE [facility] [address] [place] [phone] Denise Woodson APRN CNP Anxiety (Primary Dx); History of stroke 09/03/2024 Travel 09/02/2024 Refill [facility] [address] [place] [phone] Denise Woodson APRN CNP Medication Refill 08/17/2024 Abstract [facility] [address] [address] Tulio Ogden, PhD LP 08/17/2024 Travel 08/17/2024 12:30 PM RN NEW GRADUATE Office Visit [facility] [address] [phone] Robin Zepeda MD Waldron, Eric John, PhD LP 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); Cerebrovascular dural AV fistula; Cerebral infarction, unspecified mechanism (H) 08/14/2024 Travel 08/14/2024 MyC Medical Advice [facility] [address] [phone] Randy Maradiaga DO 08/11/2024 MyC Medical Advice [facility] [address] [place] [address] Lorrie Salase, TEXTILE SCREEN PRINTER 08/10/2024 3:00 PM RN NEW GRADUATE Virtual Visit [facility] [address] [place] [address] SinyiLorrie garciae, TEXTILE SCREEN PRINTER MONAE (generalized anxiety disorder) (Primary Dx); MDD (major depressive disorder), recurrent episode, moderate (H) 08/10/2024 12:30 PM RN NEW GRADUATE Virtual Visit [facility] [address] [address] Robin Zepeda MD 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); Dural arteriovenous fistula; Cerebrovascular accident (CVA), unspecified mechanism (H) 08/07/2024 Travel 08/07/2024 1:00 PM RN NEW GRADUATE - 08/07/2024 11:59 PM RN NEW GRADUATE Hospital Encounter [facility] [address] [place] [address] [address] [place] [phone] Danna Cardenas PA-C Chest pain, unspecified type Discharge Disposition: Home or Self Care 08/06/2024 [facility] [address] [place] [phone] Denise Woodson APRN CNP 08/04/2024 Travel 08/04/2024 12:00 PM RN NEW GRADUATE Virtual Visit [facility] [address] [place] [address] Arthur Salas, TEXTILE SCREEN PRINTER MONAE (generalized anxiety disorder) (Primary Dx); MDD (major depressive disorder), recurrent episode, moderate (H) 08/04/2024 3:30 PM RN NEW GRADUATE Virtual Visit [facility] [address] [place] [phone] Denise Woodson APRN CNP Chronic obstructive pulmonary disease without exacerbation (H) (Primary Dx); Anxiety; History of seizure; Severe episode of recurrent major depressive disorder, without psychotic features (H); Cerebrovascular accident (CVA), unspecified mechanism (H) 08/01/2024 MyC Medical Advice [facility] [address] [address] Randy Maradiaga DO 07/30/2024 8:30 AM RN NEW GRADUATE Virtual Visit [facility] [address] [phone] Randy Maradiaga DO Seizure-like activity (H); History of seizure 07/29/2024 MyC Medical Advice [facility] [address] [place] [phone] Denise Woodson APRN PAPER BAGS SEWING MACHINE OPERATOR Forms (Patient/[employer] - R... 07/22/2024 Travel 07/22/2024 11:15 AM RN NEW GRADUATE Lab [facility] [address] [place] [phone] Screening for HIV (human immunodeficiency virus) (Primary Dx); Need for hepatitis C screening test; Cerebrovascular accident (CVA), unspecified mechanism (H); Muscle weakness (generalized) 07/20/2024 12:00 PM RN NEW GRADUATE Virtual Visit [facility] [address] [place] [address] Denise Woodson, BARRERA PAPER BAGS SEWING MACHINE OPERATOR History of seizure (Primary Dx); Cerebrovascular accident (CVA), unspecified mechanism (H); Muscle weakness (generalized); Thyroid antibody positive 07/18/2024 MyC Medical Advice [facility] [address] [place] [phone] Denise Woodson APRN PAPER BAGS SEWING MACHINE OPERATOR 07/16/2024 Telephone [facility] Heart [address] [phone] Telma Guajardo RN 07/16/2024 MyC Medical Advice [facility] Addiction [address] [place] [address] Sinyigaya, Speciose, TEXTILE SCREEN PRINTER 07/16/2024 FCC Extended Documentation [facility] Addiction [address] [place] [address] Sinyigaya, Speciose, TEXTILE SCREEN PRINTER 07/16/2024 11:00 AM CDT Virtual Visit [facility] [address] [place] [address] Sinyigaya, Speciose, TEXTILE SCREEN PRINTER MONAE (generalized anxiety disorder) (Primary Dx); Anxiety; MDD (major depressive disorder), recurrent episode, moderate (H) 07/15/2024 MyC Medical Advice [facility]surgery Clinic [address] [phone] Robin Zepeda MD 07/14/2024 Telephone [facility] [address] [phone] None Appointment (Seizure-like activity (H) R sided numbness/tinglinfg/) 07/12/2024 10:32 PM CDT - 07/13/2024 6:19 PM CDT Emergency [facility] Extended Recovery and Short Stay [address] [place] [phone] Rocio Ann MD Maresh, Andrew, DO Neshangi, Srivani, MD Anxiety (Primary Dx); Right sided numbness; Cerebrovascular accident (CVA), unspecified mechanism (H); Seizure-like activity (H) Discharge Disposition: Home or Self Care 07/12/2024 Travel 07/12/2024 Telephone [facility] Services - Neuroscience Service Line [address] [place] [phone] Sameer Tracy MD 07/07/2024 MyC Medical Advice [facility] Neurology [address] [phone] Liliane Cobos 07/07/2024 Telephone [facility] Neurology [address] [phone] Randy Maradiaga DO Clinic Care Coordination - Follow-up 07/07/2024 Documentation Only [facility] Neurosurgery [address] [phone] Bryan Farley CMA 07/02/2024 PRE VISIT [facility] Neurology [address] [address] Randy Maradiaga DO *-*INCOMING RECORDS*-* 07/02/2024 7:30 AM CDT Virtual Visit [facility] Neurology [address] [address] Randy Maradiaga DO Trigger point of neck (Primary Dx); History of seizure 06/29/2024 Telephone [facility] Vascular [facility] [address] [place] [phone] Lisa Zambrano MD 06/28/2024 MyC Medical Advice [facility] [address] [place] [address] Denise Woodson APRN PAPER BAGS SEWING MACHINE OPERATOR 06/26/2024 Orders Only (auto-released) [place] [address] [facility] [address] [place] [phone] Danna Cardenas PA-C Tachycardia 06/26/2024 Travel 06/26/2024 2:40 PM CDT Office Visit [place] [address] [facility] [address] [place] [phone] Danna Cardenas PA-C Tachycardia (Primary Dx); Chest [...] Name Administration Dates Next Due COVID-19 Vaccine (KIDOZ) 11/20/2020 Flu, Unspecified 07/11/2017,07/02/2014 HepB 03/03/2012,11/07/2011,10/04/2011 Hepatitis [...] Never 09/16/2024 How often do you attend moravian or buddhism serv ices? 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 Not on file Not on file Not on file Not on file Not on file Not on file Not on file Last Filed Vital Signs Vital Sign Reading Time Taken Comments Blood Pressure 138/88 09/18/2024 12:51 PM RN NEW GRADUATE Pulse 78 09/18/2024 12:51 PM RN NEW GRADUATE Temperature 36.8 C (98.3 F) 09/18/2024 12:51 PM RN NEW GRADUATE Respiratory Rate 12 09/18/2024 12:51 PM RN NEW GRADUATE Oxygen Saturation 98% 09/18/2024 12:51 PM RN NEW GRADUATE Inhaled Oxygen Concentration - - Weight 94.8 kg (209 lb) 09/18/2024 12:51 PM RN NEW GRADUATE Height 172.7 cm (5' 8) 09/18/2024 12:51 PM RN NEW GRADUATE Body Mass Index 31.78 09/18/2024 12:51 PM RN NEW GRADUATE Plan of Treatment Upcoming Encounters Date Type Department Care Team (Late st Contact Info) Description 09/25/2024 11:00 AM RN NEW GRADUATE Office Visit [facility] [address] [place] [phone] Denise Woodson APRN PAPER BAGS SEWING MACHINE OPERATOR [address] [place], [place] [phone] 09/29/2024 9:00 AM RN NEW GRADUATE Virtual Visit [facility] Neurology [address] [phone] Randy Maradiaga, [address] [address] 10/09/2024 1:20 PM RN NEW GRADUATE Office Visit [facility] Heart [address] [place] [phone] Danna Cardenas PA-C [address] [place], [place] [phone] 10/15/2024 11:00 AM RN NEW GRADUATE Office Visit [facility] [address] [place] [phone] Denise Woodson APRN PAPER BAGS SEWING MACHINE OPERATOR [address] [place], [place] [phone] 10/30/2024 4:00 PM RN NEW GRADUATE Virtual Visit [facility] Vascular [facility] [address] [facility] [place] [address] [place] [phone] Lisa Zambrano MD [address] [place] [address] 12/29/2024 12:45 PM CDT Office Visit [facility] [address] [place] [phone] Fabi Coates MD [address] [place] [phone] 12/29/2024 1:45 PM CDT Office Visit [facility] [address] [place] [phone] Fabi Coates MD [address] [place] [phone] 06/01/2025 11:15 AM CDT Appointment [facility] Imaging [address] [place] [phone] Robin Zepeda MD [address] [place] [address] 06/04/2025 11:00 AM CDT Office Visit [facility] Neurosurgery [address] 3rd [place] [phone] Robin Zepeda MD [address] [place] [phone] Usha Simon APRN [address] [phone] Goals Goal Patient Goal Type Associated Problems Recent Progress Patient-Stated? Author I would like additional resources and support to manage my health and prevent future avoidable ED visits/hospital admissions Care Plan Increased risk of re-admission 40%( 4 3:02 PM RN NEW GRADUATE) Anastasia Talamantes, RN Note: Barriers: diagnosis of multiple, chronic, complex medical conditions, provider availability - wait time to complete appointments, etc. Strengths: motivated, engaged in care coordination Patient expressed understanding of goal: yes Action steps to achieve this goal: 1. I will follow up with my providers as scheduled/recommended - Pulmonology: TBD - Mental Health weekly - PT, OT and FINISHING MACHINE OPERATOR AUTOMATIC, continuing through [facility]: - PCP: 09/18/2024 & 10/15/2024. - Vascular [...] clinic with 24/7 after hours services available. [employer] will remain available as needed. Procedures Procedure Name Priority Date/Time Associated Diagnosis Comments CBC WITH PLATELETS & DIFFERENTIAL Routine 09/18/2024 1:23 PM RN NEW GRADUATE Acute cough CBC WITH PLATELETS AND DIFFERENTIAL Routine 09/18/2024 1:23 PM RN NEW GRADUATE Acute cough XRAY IMAGING - HIM SCAN 09/15/20 24 12:00 AM RN NEW GRADUATE CT CHEST PULMONARY EMBOLISM W CONTRAST STAT 09/13/2024 12:59 PM RN NEW GRADUATE INFLUENZA A/B, RSV AND SARS-COV2 PCR STAT 09/13/2024 11:49 AM RN NEW GRADUATE XR CHEST 2 VIEWS STAT 09/13/2024 11:25 AM RN NEW GRADUATE CBC WITH PLATELETS & DIFFERENTIAL STAT 09/13/2024 11:06 AM RN NEW GRADUATE D DIMER QUANTITATIVE STAT 09/13/2024 11:06 AM RN NEW GRADUATE TROPONIN T, HIGH SENSITIVITY Add-On 09/13/2024 11:06 AM RN NEW GRADUATE EXTRA BLUE TOP TUBE STAT 09/13/2024 11:06 AM RN NEW GRADUATE CBC WITH PLATELETS AND DIFFERENTIAL STAT 09/13/2024 11:06 AM RN NEW GRADUATE EXTRA TUBE STAT 09/13/2024 11:06 AM RN NEW GRADUATE COMPREHENSIVE METABOLIC PANEL STAT 09/13/2024 11:06 AM RN NEW GRADUATE EKG 12-LEAD, TRACING ONLY STAT 09/13/2024 10:53 AM RN NEW GRADUATE EEG VIDEO 2-12 HRS CONTINUOUS MONITORING Routine 09/11/2024 11:00 AM RN NEW GRADUATE Seizure-like activity (H) History of seizure XRAY IMAGING - HIM SCAN 09/08/20 12:00 AM RN NEW GRADUATE DC PSYCL/NRPSYCL TST TECH 2+ TST EA ADDL 30 MIN Routine 08/19/2024 4:15 PM RN NEW GRADUATE 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 Cerebral infarction, unspecified mechanism (H) DC PSYCL/NRPSYCL TST TECH 2+ TST 1ST 30 MIN Routine 08/19/2024 4:15 PM RN NEW GRADUATE 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 Cerebral infarction, unspecified mechanism (H) DC NEUROPSYCHOLOGICAL TST EVAL PHYS/QHP EA ADDL HR Routine 08/19/2024 4:15 PM RN NEW GRADUATE 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 Cerebral infarction, unspecified mechanism (H) DC NEUROPSYCHOLOGICAL TST EVAL PHYS/QHP 1ST HOUR Routine 08/19/2024 4:15 PM RN NEW GRADUATE 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 Cerebral infarction, unspecified mechanism (H) CTA ANGIOGRAM CORONARY ARTERY Routine 08/07/2024 4:31 PM RN NEW GRADUATE Chest pain, unspecified type RADIOLOGIST CONSULT FOR CARDIOLOGY Routine 08/07/2024 4:31 PM RN NEW GRADUATE Chest pain, unspecified type HEPATITIS C SCREEN REFLEX TO HCV RNA QUANT AND GENOTYPE Routine 07/22/2024 11:17 AM RN NEW GRADUATE Need for hepatitis C screening test HIV ANTIGEN ANTIBODY COMBO Routine 07/22/2024 11:17 AM RN NEW GRADUATE Screening for HIV (human immunodeficiency virus) T3 TOTAL Routine 07/22/2024 11:17 AM RN NEW GRADUATE Cerebrovascular accident (CVA), unspecified mechanism (H) Muscle weakness (generalized) VITAMIN D DEFICIENCY SCREENING Routine 07/22/2024 11:17 AM RN NEW GRADUATE Cerebrovascular accident (CVA), unspecified mechanism (H) Muscle weakness (generalized) VITAMIN B12 Routine 07/22/2024 11:17 AM RN NEW GRADUATE Cerebrovascular accident (CVA), unspecified mechanism (H) Muscle weakness (generalized) T4 FREE Routine 07/22/2024 11:17 AM RN NEW GRADUATE Cerebrovascular accident (CVA), unspecified mechanism (H) Muscle weakness (generalized) THYROID PEROXIDASE ANTIBODY Routine 07/22/2024 11:17 AM RN NEW GRADUATE Cerebrovascular accident (CVA), unspecified mechanism (H) Muscle weakness (generalized) TSH Routine 07/22/2024 11:17 AM RN NEW GRADUATE Cerebrovascular accident (CVA), unspecified mechanism (H) Muscle [...] with platelets and differential (09/18/2024 1:23 PM RN NEW GRADUATE) Only the most recent of3 resultswithin the time period is included. WBC Count 13.5(H) 4.0 - 11.0 10e3/uL 09/18/2024 1:38 PM RN NEW GRADUATE RM LABORATORY RBC Count 4.81 3.80 - 5.20 10e6/uL 09/18/2024 1:38 PM RN NEW GRADUATE RM LABORATORY Hemoglobin 14.6 11.7 - 15.7 g/dL 09/18/2024 1:38 PM RN NEW GRADUATE RM LABORATORY Hematocrit 43.6 35.0 - 47.0 % 09/18/2024 1:38 PM RN NEW GRADUATE RM LABORATORY MCV 91 78 - 100 fL 09/18/2024 1:38 PM RN NEW GRADUATE LABORATORY MCH 30.4 26.5 - 33.0 pg 09/18/2024 1:38 PM RN NEW GRADUATE LABORATORY MCHC 33.5 31.5 - 36.5 g/dL 09/18/2024 1:38 PM RN NEW GRADUATE LABORATORY RDW 12.4 10.0 - 15.0 % 09/18/2024 1:38 PM RN NEW GRADUATE LABORATORY Platelet Count 279 150 - 450 10e3/uL 09/18/2024 1:38 PM RN NEW GRADUATE RM LABORATORY % Neutrophils 86 % 09/18/2024 1:38 PM RN NEW GRADUATE LABORATORY % Lymphocytes 11 % 09/18/2024 1:38 PM RN NEW GRADUATE RM LABORATORY % Monocytes 3 % 09/18/2024 1:38 PM RN NEW GRADUATE RM LABORATORY % Eosinophils 0 % 09/18/2024 1:38 PM RN NEW GRADUATE LABORATORY % Basophils 0 % 09/18/2024 1:38 PM RN NEW GRADUATE LABORATORY % Immature Granulocytes 0 % 09/18/2024 1:38 PM RN NEW GRADUATE LABORATORY Absolute Neutrophils 11.5(H) 1.6 - 8.3 10e3/uL 09/18/2024 1:38 PM RN NEW GRADUATE LABORATORY Absolute Lymphocytes 1.4 0.8 - 5.3 10e3/uL 09/18/2024 1:38 PM RN NEW GRADUATE LABORATORY Absolute Monocytes 0.4 0.0 - 1.3 10e3/uL 09/18/2024 1:38 PM RN NEW GRADUATE LABORATORY Absolute Eosinophils 0.1 0.0 - 0.7 10e3/uL 09/18/2024 1:38 PM [facility] Absolute Basophils 0.0 0.0 - 0.2 10e3/uL 09/18/2024 1:38 PM [facility] Absolute Immature Granulocytes 0.1 <=0.4 10e3/uL 09/18/2024 1:38 PM [facility] Blood BLOOD SPECIMEN / Unknown Venipuncture / Unknown 09/18/2024 1:23 PM RN NEW GRADUATE 09/18/2024 1:31 PM RN NEW GRADUATE us Denise Woodson PROTOTYPE ENGINEER MANAGER PAPER BAGS SEWING MACHINE OPERATOR LAB - BLOOD ORDERABLES Final Result LABORATORY [facility] [address] [facility] Lab (no room number, 1st floor of clinic) [place] [address], [facility] * Xray Imaging - HIM Scan (09/15/2024 12:00 AM RN NEW GRADUATE) Only the most recent of2 resultswithin the time period is included. Anatomical Region Laterality Modality Other 09/15/2024 us Provider Outside IMG DIAGNOSTIC IMAGING ORDERABL ES Final Result * CT Chest Pulmonary Embolism w Contrast (09/13/2024 12:59 PM RN NEW GRADUATE) Anatomical Region Laterality Modality Chest, SUBRAD CT BODY, UMP CT CHEST Computed Tomography 09/13/2024 12:5 9 PM RN NEW GRADUATE Impressions 09/13/2024 2:23 PM RN NEW GRADUATE IMPRESSION: 1. No pulmonary artery embolism. 2. Mild emphysema and mild bronchiolitis with bronchial wall thickening and pulmonary air trapping. No pneumonic infiltrate or pleural effusion. Narrative 09/13/2024 2:23 PM RN NEW GRADUATE EXAM: CT CHEST PULMONARY EMBOLISM W CONTRAST LOCATION: [facility] DATE: 09/13/2024 INDICATION: Chest pain and [...] CT CHEST PULMONARY EMBOLISM W CONTRAST LOCATION: [facility] DATE: 09/13/2024 INDICATION: Chest pain and [...] infiltrate or pleural effusion. Sameer Castillo DO [facility] CT ORDERABLES Final Result * Influenza A/B, RSV and SARS-CoV2 PCR (COVID-19) Nasopharyngeal (09/13/2024 11:49 AM RN NEW GRADUATE) Influenza A PCR Negative Negative 09/13/2024 12:31 PM RN NEW GRADUATE LABORATORY Influenza B PCR Negative Negative 09/13/2024 12:31 PM RN NEW GRADUATE LABORATORY RSV PCR Negative Negative 09/13/2024 12:31 PM RN NEW GRADUATE LABORATORY SARS CoV2 PCR Negative Negative 09/13/2024 12:31 PM RN NEW GRADUATE LABORATORY Comment:NEGATIVE: SARS-CoV-2 (COVID-19) RNA not detected, presumed negative. Swab NASOPHARYNGEAL STRUCTURE / Unknown Non-blood Collection / Unknown 09/13/2024 11:49 AM RN NEW GRADUATE 09/13/2024 11:52 AM RN NEW GRADUATE Narrative LABORATORY - 09/13/2024 12:31 PM RN NEW GRADUATE Testing was performed using the Xpert Xpress CoV2/Flu/RSV Assay on the [employer] GeneXpert Instrument. This test should be ordered [...] management. This test was validated by the [facility] [employer]. These laboratories are certified under the Clinical Laboratory Improvement Amendments of 1988 (CLIA-88) as qualified to perfom high complexity laboratory testing. us Sameer Castillo DO LAB - MICRO GENERA L ORDERABLES Final Result LABORATORY [facility] [address] 1st floor, [address] [place] [address], [facility] [phone] * Chest XR, PA & LAT (09/13/2024 11:25 AM RN NEW GRADUATE) Anatomical Region Laterality Modality Chest Digital Radiogra phy 09/13/2024 11:2 5 AM RN NEW GRADUATE Impressions 09/13/2024 12:27 PM RN NEW GRADUATE IMPRESSION: Pulmonary hyperinflation consistent with known emphysema. PFO closure device. Mild bibasilar opacities likely reflect atelectasis. Stable biapical scarring. No pleural effusion. Stable heart size. Narrative 09/13/2024 12:27 PM RN NEW GRADUATE EXAM: XR CHEST 2 VIEWS LOCATION: [facility] DATE: 09/13/2024 INDICATION: chst pain and sob aftr aspirationj COMPARISON: CT 03/18/2024 Procedure Note Dionicio Ennis MD - 09/13/2024 EXAM: XR CHEST 2 VIEWS LOCATION: [facility] DATE: 09/13/2024 INDICATION: chst pain and sob aftr aspirationj COMPARISON: CT 03/18/2024 IMPRESSION: Pulmonary hyperinflation consistent with known emphysema. PFOclosure device. Mild bibasilar opacities likely reflect atelectasis.Stable biapical scarring. No pleural effusion. Stable heart size. Sameer Clay'Neill DO IMG DIAGNOSTIC TAYLA GING ORDERABLES Final Result * Extra Blue Top Tube (09/13/2024 11:06 AM RN NEW GRADUATE) Hold Specimen x 09/13/2024 11:46 AM RN NEW GRADUATE LABORATORY Blood VENOUS LINE / Unknown Venipuncture / Unknown 09/13/2024 11:06 AM RN NEW GRADUATE 09/13/2024 11:15 AM RN NEW GRADUATE Sameer Clay'Neill DO LAB - BLOOD ORDERA BLES Final Result LABORATORY [facility] [address] 1st floor, Room [address] [place] [address], [place] [phone] * Troponin T, High Sensitivity (09/13/2024 11:06 AM RN NEW GRADUATE) [facility] Troponin T, High Sensitivity <6 <=14 ng/L 09/13/2024 11:47 AM RN NEW GRADUATE LABORATORY Comment: Either a High Sensitivity Troponin [...] Unknown Venipuncture / Unknown 09/13/2024 11:06 AM RN NEW GRADUATE 09/13/2024 11:15 AM RN NEW GRADUATE Sameer Castellanos [place] DO LAB - BLOOD ORDERA BLES Final Result LABORATORY [facility] [address] 1[address] floor, [address] [place] [address], [facility] [phone] * (ABNORMAL) D dimer quantitative (09/13/2024 11:06 AM RN NEW GRADUATE) Pathologist [facility] D-Dimer Quantitative 0.82(H) 0.00 - 0.50 ug/mL FEU 09/13/2024 11:54 AM RN NEW GRADUATE LABORATORY Blood VENOUS LINE / Unknown Venipuncture / Unknown 09/13/2024 11:06 AM RN NEW GRADUATE 09/13/2024 11:15 AM RN NEW GRADUATE Narrative LABORATORY - 09/13/2024 11:54 AM RN NEW GRADUATE This D-dimer assay is intended for use in conjunction with a clinical pretest probability assessment model to exclude pulmonary embolism (PE) and deep venous thrombosis (DVT) in outpatients suspected of PE or DVT. The cut-off value is 0.50 ug/mL FEU. Sameer Castillo DO LAB - BLOOD ORDERA BLES Final Result Performing Organization Address City/[facility]/ZIP Co de Phone Number LABORATORY [facility] [address] 1st floor, [address] [place] [address], [facility] [phone] * (ABNORMAL) Comprehensive metabolic panel (09/13/2024 11:06 AM RN NEW GRADUATE) Only the most recent of2 resultswithin the time period is included. Pathologist [facility] Sodium 142 135 - 145 mmol/L 09/13/2024 11:47 AM [facility] Potassium 4.6 3.4 - 5.3 mmol/L 09/13/2024 11:47 AM [facility] Carbon Dioxide (CO2) 29 22 - 29 mmol/L 09/13/2024 11:47 AM [facility] Anion Gap 10 7 - 15 mmol/L 09/13/2024 11:47 AM [facility] Urea Nitrogen 14.5 6.0 - 20.0 mg/dL 09/13/2024 11:47 AM [facility] Creatinine 0.82 0.51 - 0.95 mg/dL 09/13/2024 11:47 AM [facility] GFR Estimate 88 >60 mL/min/1.7 3m2 09/13/2024 11:47 AM [facility] Comment:eGFR calculated usin 2020 CKD-EPI equation. Calcium 10.1 8.8 - 10.4 mg/dL 09/13/2024 11:47 AM [facility] Comment:Reference intervals for this test were updated on 03/31/2024 to reflect our healthy population more accurately. There may be differences in the flagging of prior results with similar values performed with this method. Those prior results can be interpreted in the context of the updated reference intervals. Chloride 103 98 - 107 mmol/L 09/13/2024 11:47 AM [facility] Glucose 105(H) 70 - 99 mg/dL 09/13/2024 11:47 AM [facility] Alkaline Phosphatase 117 40 - 150 U/L 09/13/2024 11:47 AM [facility] AST 28 0 - 45 U/L 09/13/2024 11:47 AM [facility] ALT 27 0 - 50 U/L 09/13/2024 11:47 AM [facility] Protein Total 7.9 6.4 - 8.3 g/dL 09/13/2024 11:47 AM [facility] Albumin 4.4 3.5 - 5.2 g/dL 09/13/2024 11:47 AM [facility] Bilirubin Total 0.9 <=1.2 mg/dL 09/13/2024 11:47 AM [facility] Blood VENOUS LINE / Unknown Venipuncture / Unknown 09/13/2024 11:06 AM [facility] 09/13/2024 11:15 AM RN NEW GRADUATE us Sameer Castillo DO LAB - BLOOD ORDERA BLES Final Result LABORATORY [facility] [address] 1[address] floor, [address] [place] [address], [place] [phone] * EKG 12 lead (09/13/2024 10:53 AM RN NEW GRADUATE) Systolic Blood Pressure mmHg RADIOLOGY RESULTS Diastolic Blood Pressure mmHg RADIOLOGY RESULTS Ventricular Rate 88 BPM RAD IOLOGY RESULTS Atrial Rate 88 BPM RADIOLOG Y RESULTS DC Interval 148 ms RADIOLOG Y RESULTS QRS Duration 78 ms RADIOLO GY RESULTS QT 316 ms RADIOLOGY RESULTS QTc 382 ms RADIOLOGY RESULTS P [place] 62 degrees RADIOLOGY RESULTS R AXIS 49 degrees RADIOLOGY RESULTS T [place] -12 degrees RADIOLOGY RESULTS Interpretation ECG Sinus rhythm Possible Left atrial enlargement T wave abnormality, consider inferolateral ischemia Abnormal ECG When compared with ECG of 10-May-2024 11:25, T wave inversion more evident in Inferior leads T wave inversion now evident in Anterior leads Confirmed by GENERATED REPORT, COMPUTER ([id number]), script editor Felicita Pettit ([id number]) on 09/13/2024 12:08:04 PM RADIOLOGY RESULTS 09/13/2024 10:5 3 AM RN NEW GRADUATE 09/13/2024 12:08 PM RN NEW GRADUATE us Tran Qureshi MD ECG ORDERABLES Edited R esult - Final RADIOLOGY RESULTS * EEG Video 2-12 hrs Continuous Monitoring (09/11/2024 11:00 AM RN NEW GRADUATE) Narrative [facility] - 09/13/2024 10:50 PM RN NEW GRADUATE VIDEO EEG DATE: 09/11/2024 VIDEO EEG LOG: [id number] VIDEO EEG #: 1 VIDEO EEG SOURCE [...] CTA Angiogram coronary artery (08/07/2024 4:31 PM RN NEW GRADUATE) Anatomical Region Laterality Modality Cardio, SUBRAD CT BODY, UMP CT CHEST, RAD CT Computed Tomography Impressions 08/07/2024 4:43 PM RN NEW GRADUATE IMPRESSION: 1. Normal coronary anatomy with no [...] SERGEI BYNUM MD Narrative 08/07/2024 4:43 PM RN NEW GRADUATE Procedure: CTA ANGIOGRAM CORONARY ARTERY Examination Date: [...] Images were reconstructed and analyzed on a [employer] workstation. Scan protocol was optimized to minimize [...] Images were reconstructed and analyzed on a [employer] workstation. Scan protocol was optimized to minimize [...] that will follow separately. SERGEI BYNUM MD Tekmicindy PA-C IM CT ORDERABLES Final Resu lt * Radiologist Consult For Cardiology (08/07/2024 4:31 PM RN NEW GRADUATE) Anatomical Region Laterality Modality Computed Tomogra phy Impressions 08/10/2024 4:16 PM RN NEW GRADUATE IMPRESSION: Pectus excavatum. Mosaic attenuation of the lungs suggests possible air trapping. MARLO FAULKNER MD Narrative 08/10/2024 4:16 PM RN NEW GRADUATE RADIOLOGIST CONSULT FOR CARDIOLOGY 08/07/2024 4:31 PM HISTORY: Chest pain, unspecified type. COMPARISON: None. Procedure Note Marlo Faulknre MD - 08/10/2024 RADIOLOGIST CONSULT FOR CARDIOLOGY 08/07/2024 4:31 PM HISTORY: Chest pain, unspecified type. COMPARISON: None. IMPRESSION: Pectus excavatum. Mosaic attenuation of the lungs suggests possible air trapping. MARLO FAULKNER MD Tekmicindy PA-C IM DIAGNOSTIC IMAGING ORDER NASRIN Final Result * HIV Antigen Antibody Combo (07/22/2024 11:17 AM RN NEW GRADUATE) Pathologist [facility] HIV Antigen Antibody Combo Nonreactive Nonreactive 07/23/2024 2:55 AM RN NEW GRADUATE U LABORATORY Comment:Negative HIV-1 p24 a ntigen [...] Unknown Venipuncture / Unknown 07/22/2024 11:17 AM RN NEW GRADUATE 07/22/2024 11:17 AM RN NEW GRADUATE Denise Woodson APRN [facility] LAB - BLOOD ORDERABLES Final Result Performing Organization Address [facility] Co de Phone Number LABORATORY [facility] Core Lab [address] [place] [address], [facility] [address] * Hepatitis C Screen Reflex to HCV RNA Quant and Genotype (07/22/2024 11:17 AM RN NEW GRADUATE) Pathologist [facility] Hepatitis C Antibody Nonreactive Nonreactive 07/23/2024 10:25 AM RN NEW GRADUATE U LABORATORY Comment:A nonreactive screen ing test [...] Unknown Venipuncture / Unknown 07/22/2024 11:17 AM RN NEW GRADUATE 07/22/2024 11:17 AM RN NEW GRADUATE Denise Woodson APRN [facility] LAB - BLOOD ORDERABLES Final Result Performing Organization Address [facility] Co de Phone Number LABORATORY [facility] [address] [place] [address], [address] * Vitamin D Deficiency (07/22/2024 11:17 AM RN NEW GRADUATE) Pathologist [facility] Vitamin D, Total (25-Hydroxy) 30 20 - 50 ng/mL 07/23/2024 10:41 AM RN NEW GRADUATE [facility] LAB[facility]ATORY Comment:optimum levels Blood BLOOD SPECIMEN / Unknown Venipuncture / Unknown 07/22/2024 11:17 AM RN NEW GRADUATE 07/22/2024 11:17 AM RN NEW GRADUATE Narrative [facility] LAB[facility]ATORY - 07/23/2024 10:41 AM RN NEW GRADUATE Season, race, dietary intake, and treatment affect the concentration of 71-yczwkyk-Byftzzh D. Values may decrease during winter months and increase during summer months. Vitamin D determination is routinely performed by an immunoassay specific for 25 hydroxyvitamin D3. If an individual is on vitamin D2(ergocalciferol) supplementation, please specify 25 OH vitamin D2 and D3 level determination by LCMSMS test VITD23. Denise Woodson APRN [facility] LAB - BLOOD ORDERABLES Final Result LABORATORY [facility] Lab [address] [facility], [address] [id number] * (ABNORMAL) TSH (07/22/2024 11:17 AM RN NEW GRADUATE) [facility] TSH 8.19(H) 0.30 - 4.20 uIU/mL 07/23/2024 10:41 AM RN NEW GRADUATE [facility] LAB[facility]ATORY Blood BLOOD SPECIMEN / Unknown Venipuncture / Unknown 07/22/2024 11:17 AM RN NEW GRADUATE 07/22/2024 11:17 AM RN NEW GRADUATE Denise Woodson APRN [facility] LAB - BLOOD ORDERABLES Final Result LABORATORY [facility] [address] [facility], [address] [id number] * (ABNORMAL) Thyroid peroxidase antibody (07/22/2024 11:17 AM RN NEW GRADUATE) [facility] Thyroid Peroxidase Antibody 2,881(H) <35 IU/mL 07/23/2024 10:53 AM RN NEW GRADUATE [facility]PROT/END O Blood BLOOD SPECIMEN / Unknown Venipuncture / Unknown 07/22/2024 11:17 AM RN NEW GRADUATE 07/22/2024 11:17 AM RN NEW GRADUATE Denise Woodson APRN PAPER BAGS SEWING MACHINE OPERATOR LAB - BLOOD ORDERABLES Final Result [facility]/PROT/ENDO [facility]/Prot/Endo [address] [facility], [address] * T4, free (07/22/2024 11:17 AM RN NEW GRADUATE) Only the most recent of2 resultswithin the time period is included. Free T4 1.27 0.90 - 1.70 ng/dL 07/23/2024 10:41 AM RN NEW GRADUATE [facility]AT[facility] Blood BLOOD SPECIMEN / Unknown Venipuncture / Unknown 07/22/2024 11:17 AM RN NEW GRADUATE 07/22/2024 11:17 AM RN NEW GRADUATE Denise Woodson APRN PAPER BAGS SEWING MACHINE OPERATOR LAB - BLOOD ORDERABLES Final Result Performing Organization Address City/[facility]/ZIP Co de Phone Number [facility]U LABORATORY [facility] [address] [facility], [address] [phone] * T3, total (07/22/2024 11:17 AM RN NEW GRADUATE) Pathologist [facility] T3 Total 131 85 - 202 ng/dL 07/23/2024 10:41 AM RN NEW GRADUATE [facility] LABORATORY Blood BLOOD SPECIMEN / Unknown Venipuncture / Unknown 07/22/2024 11:17 AM RN NEW GRADUATE 07/22/2024 11:17 AM RN NEW GRADUATE Denise Woodson APRN PAPER BAGS SEWING MACHINE OPERATOR LAB - BLOOD ORDERABLES Final Result [facility] LABORATORY [facility] [address] [facility], [address] [phone] * Vitamin B12 (07/22/2024 11:17 AM RN NEW GRADUATE) Vitamin B12 456 232 - 1,245 pg/mL 07/23/2024 10:41 AM RN NEW GRADUATE [facility] LAB[facility]ATORY Blood BLOOD SPECIMEN / Unknown Venipuncture / Unknown 07/22/2024 11:17 AM RN NEW GRADUATE 07/22/2024 11:17 AM RN NEW GRADUATE us Denise Woodson PROTOTYPE ENGINEER MANAGER PAPER BAGS SEWING MACHINE OPERATOR LAB - BLOOD ORDERABLES Final Result U LABORATORY [facility] [address] [facility], [address] [phone] * ZIO PATCH MAIL OUT (07/16/2024 11:43 [...] PM CDT Narrative 07/13/2024 4:29 PM CDT [id number]^EVER^AZRA^Analy [facility] Echocardiography Laboratory [facility] [place] [address] Name: CHRISTOPHER TY : 1975 Study Date: 07/13/2024 03:16 PM Age: 48 yrs Gender: Female Patient Location: [facility] Reason For Study: TIA Ordering Physician: AZRA CURTIS Performed By: Janna Fenton BSA: 2.1 m2 Height: 68 in Weight: 214 lb HR: 71 BP: 138/92 mmHg Procedure Complete Portable Echo Adult. Definity ([facility] #[id number]) given intravenously. Contrast Definity. Technically difficult study.Extremely [...] Procedure Note Joe Matos MD - 07/13/2024 [id number] [facility] [id number]^EVER^AZRA^Analy [facility] Echocardiography Laboratory [address] [place] [address] Name: CHRISTOPHER TY : 1975 Study Date: 07/13/2024 03:16 PM Age: 48 yrs Gender: Female Patient Location: [facility] Reason For Study: TIA Ordering Physician: AZRA CURTIS Performed By: Janna Fenton BSA: 2.1 m2 Height: 68 in Weight: 214 lb HR: 71 BP: 138/92 mmHg Procedure Complete Portable Echo Adult. Definity ([facility] #[id number]) givenintravenously. Contrast Definity. Technically difficult study.Extremely difficultacoustic [...] mg/dL Very High: >= 220 mg/dL Result [facility] Azra Curtis PA-C LAB - BLOOD ORDERABLES F inal Result [facility]U LABORATORY [facility] Lab [address] [facility] [address] Building, [address] [place] [address], [facility] LABORATORY [facility] [address] 1st floor, [address] [place] [address], [facility] [phone] * Hemoglobin A1c (07/13/2024 12:40 PM CDT) Estimated Average Glucose 111 <117 mg/dL 07/13/2024 1:16 PM CDT LABORATORY Hemoglobin A1C 5.5 <5.7 % 07/13/2024 1:16 PM CDT LABORATORY Comment: Normal <5.7% Prediabetes 5.7-6.4% Diabetes 6.5% or higher Note: Adopted from ADA consensus guidelines. Blood STRUCTURE OF LEFT WRIST REGION / Unknown Venipuncture / Unknown 07/13/2024 12:40 PM CDT 07/13/2024 12:58 PM CDT Result [facility] Azra Curtis PA-C LAB - BLOOD ORDERABLES F inal Result LABORATORY [facility] [address] 1[address] floor, [address] [place] [address], [facility] [phone] * Glucose by meter (07/13/2024 7:56 AM CDT) GLUCOSE BY METER POCT 93 70 - 99 mg/dL 07/13/2024 8:03 AM CDT LABORATORY POC Blood, Capillary BLOOD SPECIMEN / Unknown 07/13/2024 7:56 AM CDT 07/13/2024 8:03 AM CDT Morgan Morales MD LAB - BEAKER POCT Final Resu lt LABORATORY POC [facility] [address], [address] [place] [address], [facility] * MR Brain w/o Contrast [...] CDT EXAM: MR BRAIN W/O CONTRAST LOCATION: [facility] DATE: 07/13/2024 INDICATION: right sided numnbess. difficulty swallowing. hx of strokes COMPARISON: MRI brain May 15, 2024. TECHNIQUE: Routine multiplanar multisequence head MRI without intravenous contrast. Procedure Note Alfred Kruger MD - 07/13/2024 EXAM: MR BRAIN W/O CONTRAST LOCATION: [facility] DATE: 07/13/2024 INDICATION: right sided numnbess. [...] LAB - BLOOD ORDERABLES Final Result LABORATORY [facility] Core Lab [address] [facility], [address] * (ABNORMAL) TSH with free T4 reflex (07/12/2024 11:28 PM CDT) TSH 9.38(H) 0.30 - 4.20 uIU/mL 07/13/2024 11:17 AM CDT U LABORATORY Blood BLOOD SPECIMEN / Unknown Venipuncture / Unknown 07/12/2024 11:28 PM CDT 07/12/2024 11:35 PM CDT us Azra Curtis PA-C LAB - BLOOD ORDERABLES F inal Result Performing Organization Address City/[facility]/ZIP Co de Phone Number LABORATORY [facility] Lab [address] [facility], [address] * Lab Result - HIM Scan [...] JEVON HOWELL MD us Denise Woodson APRN PAPER BAGS SEWING MACHINE OPERATOR IMG MAMMOGRAPHY ORDERAB LES Final Result from Last 3 Months or Most Recently Relevant to Health Maintenance Additional Health Concerns Active Problems Noted Date Diagnosed Date Increased risk of re-admission 02/18/2024 Insurance [employer] * Guarantor: Candy Adame Account Type Relation to Patient Date of Phone Billing Address 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 [address] [place] [address] * Guarantor: Christopher Ty Account Type Relation to Patient Date of Phone Billing Address Medication Therapy Self 1975 [address] [place] [address] [employer] Advance Directives For more information, please contact: [phone] * Full Code (Latest Code Status on [...] patie nt/ legal decision maker Care Teams Entry Level Software Engineer Relationship Specialty Start Date End Date Winston Villatoro OD [facility] [address] [facility] [address] [place] [address] PCP - Ophthalmology Ophthalmology 02/11/13 Denise Woodson APRN PAPER BAGS SEWING MACHINE OPERATOR [id number] [address] PCP - General Family Practice 09/21/20 Denise Woodson APRN PAPER BAGS SEWING MACHINE OPERATOR [address] [id number] Assigned PCP 07/17/20 Usha Simon APRN PAPER BAGS SEWING MACHINE OPERATOR [address] [facility] [id number] [place] [address] Nurse Practitioner Neurological Surgery 01/24/24 Dangelo Salinas MD [address] [place] [address] Neurology 01/27/24 Anastasia Stearns, RN Lead Assembler Plastic Boat 02/06/24 Germaine Lopez, W Community Health Worker Primary Care - CC 02/18/24 Joya Lira Joleen [address] [place], [place] [phone] Pharmacist Pharmacist 05/25/24 Joya Lira [facility] [address] [place], [place] [id number] Assigned MTM Pharmacist 06/08/24 Fabi Coates MD [address] [facility] [address] [place] [address] Genetics, Clinical 06/18/24 Danna Cardenas PA-C [address] [place] [address] Assigned Heart and Vascular Provider 07/08/24 Arthur Salas LICSW [address] [place] [address] Assigned Behavioral Health Provider 08/08/24 Randy Maradiaga DO [address] [place] [address] Assigned Neuroscience Provider 08/08/24
--- OUTSIDE RECORDS SUMMARY | 2024-09-20 19:19 | XMS_ITS | Clinical Summary ---
Author Organization [facility] Address [address] [place] [address] Care Team Providers Care Motor Builder Assembler Name Role Phone Winston Villatoro OD Unavailable Denise Woodson APRN ORDNANCE KEEPER Unavailable Denise Woodson APRN [facility] Primary Care Provider Usha Simon APRN [facility] Unavailable [phone] Dangelo Salinas MD Unavailable Anastasia Stearns RN Unavailable Germaine Lopez [facility] Unavailable Joya Lira [facility] Unavailable Joya Lira [facility] Unavailable Fabi Coates MD Unavailable [phone] Danna CardenasC Unavailable [phone] SinyiArthur garcia SHODER FILLER Unavailable Randy Maradiaga DO Unavailable + Allergies [...] Department Care Team Description 09/18/2024 1:00 PM SUPERVISOR GRIPS Office Visit [facility] [place] [address] [place] [phone] Denise Woodson APRN CNP Chronic obstructive pulmonary disease without exacerbation (H) (Primary Dx); Acute cough; BPD (bronchopulmonary dysplasia) (H) 09/18/2024 Telephone [facility] [address] [place] [phone] Denise Woodson APRN CNP Erroneous encounter-disregard 09/18/2024 Travel 09/16/2024 Travel 09/14/2024 MyC Medical Advice [facility] [address] [place] [phone] Denise Woodson APRN CNP 09/13/2024 10:54 AM SUPERVISOR GRIPS - 09/13/2024 4:42 PM SUPERVISOR GRIPS Emergency [facility] Emergency Dept [address] [place] [phone] Sameer Castillo, COPD with acute exacerbation (H); Upper respiratory tract infection, unspecified type Discharge Disposition: Home or Self Care 09/13/2024 Travel 09/11/2024 8:00 AM SUPERVISOR GRIPS Ancillary Procedure [facility] [address] [facility] [address] [place] [phone] Randy Maradiaga, Seizure-like activity (H); History of seizure 09/11/2024 Travel 2024 Travel 09/04/2024 11:00 AM SUPERVISOR GRIPS Office [facility] [address] [place] [phone] Denise Woodson APRN CNP Anxiety (Primary Dx); History of stroke 09/04/2024 MyC Medical Advice [facility] [address] [place] [phone] Qing Copeland 09/04/2024 Travel 09/03/2024 Travel 09/02/2024 Refill [facility] [address] [place] [phone] Chintan Denise LIEN SEARCHER ORDNANCE KEEPER Medication Refill 08/17/2024 12:30 PM SUPERVISOR GRIPS Office Visit [facility] [place] [address] [place] [phone] Robin Zepeda MD Waldron, Eric John, PhD LP 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); Cerebrovascular dural AV fistula; Cerebral infarction, unspecified mechanism (H) 08/17/2024 Abstract [facility] [place] [address] [place] [phone] Tulio Ogden, PhD LP 08/17/2024 Travel 08/14/2024 Travel 08/14/2024 MyC Medical Advice [facility] [address] [phone] Randy Maradiaga, 08/11/2024 MyC Medical Advice [facility] [address] [place] [address] Sinyigaya, Speciose, SHODER FILLER 08/10/2024 3:00 PM SUPERVISOR GRIPS Virtual Visit [facility] [address] [place] [address] Sinyigaya, Speciose, SHODER FILLER MONAE (generalized anxiety disorder) (Primary Dx); MDD (major depressive disorder), recurrent episode, moderate (H) 08/10/2024 12:30 PM SUPERVISOR GRIPS Virtual Visit [facility] Neuropsychology [address] [phone] Robin Zepeda MD 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); Dural arteriovenous fistula; Cerebrovascular accident (CVA), unspecified mechanism (H) 08/07/2024 1:00 PM SUPERVISOR GRIPS - 08/07/2024 11:59 PM SUPERVISOR GRIPS Hospital Encounter [facility] [address] [place] [address] Danna Cardenas PA-C Chest pain, unspecified type Discharge Disposition: Home or Self Care 08/07/2024 Travel 08/06/2024 [facility] [address] [place] [phone] Denise Woodson APRN CNP 08/04/2024 3:30 PM SUPERVISOR GRIPS Virtual Visit [facility] [address] [place] [phone] Denise Woodson APRN ORDNANCE KEEPER Chronic obstructive pulmonary disease without exacerbation (H) (Primary Dx); Anxiety; History of seizure; Severe episode of recurrent major depressive disorder, without psychotic features (H); Cerebrovascular accident (CVA), unspecified mechanism (H) 08/04/2024 12:00 PM SUPERVISOR GRIPS Virtual Visit [facility] [address] [place] [address] Arthur Salas, SHODER FILLER MONAE (generalized anxiety disorder) (Primary Dx); MDD (major depressive disorder), recurrent episode, moderate (H) 08/04/2024 Travel 08/01/2024 MyC Medical Advice [facility] [address] [phone] Randy Maradiaga DO 07/30/2024 8:30 AM SUPERVISOR GRIPS Virtual Visit [facility] [address] [phone] Randy Maradiaga DO Seizure-like activity (H); History of seizure 07/29/2024 MyC Medical Advice [facility] [address] [place] [phone] Denise Woodson APRN ORDNANCE KEEPER Forms (Patient/[employer] - R... 07/22/2024 11:15 AM SUPERVISOR GRIPS Lab [facility] [address] [place] [phone] Screening for HIV (human immunodeficiency virus) (Primary Dx); Need for hepatitis C screening test; Cerebrovascular accident (CVA), unspecified mechanism (H); Muscle weakness (generalized) 07/22/2024 Travel 07/20/2024 12:00 PM SUPERVISOR GRIPS Virtual Visit [facility] [address] [place] [phone] Denise Woodson APRN ORDNANCE KEEPER History of seizure (Primary Dx); Cerebrovascular accident (CVA), unspecified mechanism (H); Muscle weakness (generalized); Thyroid antibody positive 07/18/2024 MyC Medical Advice [facility] [address] [place] [address] Denise Woodson APRN ORDNANCE KEEPER 07/16/2024 11:00 AM CDT Virtual Visit [facility] [address] [place] [phone] Sinyigaya, Speciose, SHODER FILLER MONAE (generalized anxiety disorder) (Primary Dx); Anxiety; MDD (major depressive disorder), recurrent episode, moderate (H) 07/16/2024 Telephone [facility] [place] [id number] [place] [phone] Telma Guajardo RN 07/16/2024 MyC Medical Advice [facility] [address] [place] [phone] Sinyigaya, Speciose, SHODER FILLER 07/16/2024 FCC Extended Documentation [facility] [address] [place] [phone] Sinyigaya, Speciose, SHODER FILLER 07/15/2024 MyC Medical Advice [facility] [address] [place] [phone] Robin Zepeda MD 07/14/2024 Telephone [facility] [address] [place] [phone] None Appointment (Seizure-like activity (H) R sided numbness/tinglinfg/) 07/12/2024 10:32 PM CDT - 07/13/2024 6:19 PM CDT Emergency [facility] Extended Recovery and Short Stay [address] [place] [phone] Rocio Ann MD Maresh, Andrew, DO Neshangi, Srivani, MD Anxiety (Primary Dx); Right sided numbness; Cerebrovascular accident (CVA), unspecified mechanism (H); Seizure-like activity (H) Discharge Disposition: Home or Self Care 07/12/2024 Travel 07/12/[address] [facility] Service Line [facility] [place] [phone] Sameer Tracy MD 07/07/2024 MyC Medical Advice [facility] [address] [phone] Liliane Cobos 07/07/2024 Telephone [facility] [address] [phone] Randy Maradiaga DO Clinic Care Coordination - Follow-up 07/07/2024 Documentation Only [facility] [address] [phone] Bryan Farley CMA 07/02/2024 7:30 AM CDT Virtual Visit [facility] [address] [address] Randy Maradiaga DO Trigger point of neck (Primary Dx); History of seizure 07/02/2024 PRE VISIT [facility] [address] [phone] Randy Maradiaga DO *-*INCOMING RECORDS*-* 06/29/2024 Telephone [facility] [address] [phone] Lisa Zambrano MD 06/28/2024 MyC Medical Advice [facility] [address] [place] [address] Denise WoodsonBARRERA ORDNANCE KEEPER 06/26/2024 2:40 PM CDT Office Visit [address] [place] [phone] Danna Cardenas PA-C Tachycardia (Primary Dx); Chest pain, unspecified type 06/26/2024 Orders Only (auto-released) [address] [place] [phone] Danna Cardenas PA-C Tachycardia 06/26/2024 Travel 06/23/2024 [...] Never 09/16/2024 How often do you attend holiness or yazidism serv ices? 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 Not on file Not on file Not on file Not on file Not on file Not on file Not on file Last Filed Vital Signs Vital Sign Reading Time Taken Comments Blood Pressure 138/88 09/18/2024 12:51 PM SUPERVISOR GRIPS Pulse 78 09/18/2024 12:51 PM SUPERVISOR GRIPS Temperature 36.8 C (98.3 F) 09/18/2024 12:51 PM SUPERVISOR GRIPS Respiratory Rate 12 09/18/2024 12:51 PM SUPERVISOR GRIPS Oxygen Saturation 98% 09/18/2024 12:51 PM SUPERVISOR GRIPS Inhaled Oxygen Concentration - - Weight 94.8 kg (209 lb) 09/18/2024 12:51 PM SUPERVISOR GRIPS Height 172.7 cm (5' 8) 09/18/2024 12:51 PM SUPERVISOR GRIPS Body Mass Index 31.78 09/18/2024 12:51 PM SUPERVISOR GRIPS Plan of Treatment Upcoming Encounters Date Type Department Care Team (Late st Contact Info) Description 09/25/2024 11:00 AM SUPERVISOR GRIPS Office Visit [facility] [address] [place] [phone] Denise Woodson APRN ORDNANCE KEEPER [address] [place], [place] [phone] 09/29/2024 9:00 AM SUPERVISOR GRIPS Virtual Visit [facility] [address] 3rd [place] [phone] Randy Maradiaga, [address] [address] 10/09/2024 1:20 PM SUPERVISOR GRIPS Office Visit [facility] [address] [facility] [address] [place] [phone] Danna Cardenas PA-C [address] [place], [place] [address] 10/15/2024 11:00 AM SUPERVISOR GRIPS Office Visit [facility] [address] [place] [phone] Chintan DeniseBARRERA ORDNANCE KEEPER [address] [place] [address] 10/30/2024 4:00 PM SUPERVISOR GRIPS Virtual Visit [facility] [place] [address] [place] [phone] Lisa Zambrano MD [address] [place] [address] 12/29/2024 12:45 PM CDT Office Visit [facility] [address] [place] [address] [phone] Fabi Coates MD [address] [place] [phone] 12/29/2024 1:45 PM CDT Office Visit [facility] [address] [place] [phone] Fabi Coates MD [address] [place] [address] 06/01/2025 11:[address] [facility] [address] [facility] [address] [place] [phone] Robin Zepeda MD [address] [place] [phone] 06/04/2025 11:00 AM CDT Office Visit [facility] [address] 3rd [place] [phone] Robin Zepeda MD [address] [place] [address] Usha Simon APRN ORDNANCE KEEPER [address] [facility] [place] [address] Health Maintenance Due Date Last Done Comments [...] risk of re-admission 40%( 4 3:02 PM SUPERVISOR GRIPS) No Anastasia Stearns, RN Note: Barriers: diagnosis of multiple, chronic, complex medical conditions, provider availability - wait time to complete appointments, etc. Strengths: motivated, engaged in care coordination Patient expressed understanding of goal: yes Action steps to achieve this goal: 1. I will follow up with my providers as scheduled/recommended - Pulmonology: TBD - Mental Health weekly - PT, OT and TUBING ASSEMBLER, continuing through [facility]: - PCP: 09/18/2024 & 10/15/2024. - Vascular [...] with 24/7 after hours services available. Senior Business Development Analyst will remain available as needed. Procedures Procedure Name Priority Date/Time Associated Diagnosis Comments CBC WITH PLATELETS & DIFFERENTIAL Routine 09/18/2024 1:23 PM SUPERVISOR GRIPS Acute cough CBC WITH PLATELETS AND DIFFERENTIAL Routine 09/18/2024 1:23 PM SUPERVISOR GRIPS Acute cough XRAY IMAGING - HIM SCAN 09/15/20 12:[address] CHEST PULMONARY EMBOLISM W CONTRAST STAT 09/13/2024 12:59 PM SUPERVISOR GRIPS INFLUENZA A/B, RSV AND SARS-COV2 PCR STAT 09/13/2024 11:49 AM SUPERVISOR GRIPS XR CHEST 2 VIEWS STAT 09/13/2024 11:25 AM SUPERVISOR GRIPS CBC WITH PLATELETS & DIFFERENTIAL STAT 09/13/2024 11:06 AM SUPERVISOR GRIPS D DIMER QUANTITATIVE STAT 09/13/2024 11:06 AM SUPERVISOR GRIPS TROPONIN T, HIGH SENSITIVITY Add-On 09/13/2024 11:06 AM SUPERVISOR GRIPS EXTRA BLUE TOP TUBE STAT 09/13/2024 11:06 AM SUPERVISOR GRIPS CBC WITH PLATELETS AND DIFFERENTIAL STAT 09/13/2024 11:06 AM SUPERVISOR GRIPS EXTRA TUBE STAT 09/13/2024 11:06 AM SUPERVISOR GRIPS COMPREHENSIVE METABOLIC PANEL STAT 09/13/2024 11:06 AM SUPERVISOR GRIPS EKG 12-LEAD, TRACING ONLY STAT 09/13/2024 10:53 AM SUPERVISOR GRIPS EEG VIDEO 2-12 HRS CONTINUOUS MONITORING Routine 09/11/2024 11:00 AM SUPERVISOR GRIPS Seizure-like activity (H) History of seizure XRAY IMAGING - HIM SCAN 09/08/20 12:00 AM SUPERVISOR GRIPS AK PSYCL/NRPSYCL TST TECH 2+ TST EA ADDL 30 MIN Routine 08/19/2024 4:15 PM SUPERVISOR GRIPS 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 Cerebral infarction, unspecified mechanism (H) AK PSYCL/NRPSYCL TST TECH 2+ TST 1ST 30 MIN Routine 08/19/2024 4:15 PM SUPERVISOR GRIPS 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 Cerebral infarction, unspecified mechanism (H) AK NEUROPSYCHOLOGICAL TST EVAL PHYS/QHP EA ADDL HR Routine 08/19/2024 4:15 PM SUPERVISOR GRIPS 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 Cerebral infarction, unspecified mechanism (H) AK NEUROPSYCHOLOGICAL TST EVAL PHYS/QHP 1ST HOUR Routine 08/19/2024 4:15 PM SUPERVISOR GRIPS 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 Cerebral infarction, unspecified mechanism (H) CTA ANGIOGRAM CORONARY ARTERY Routine 08/07/2024 4:31 PM SUPERVISOR GRIPS Chest pain, unspecified type RADIOLOGIST CONSULT FOR CARDIOLOGY Routine 08/07/2024 4:31 PM SUPERVISOR GRIPS Chest pain, unspecified type HEPATITIS C SCREEN REFLEX TO HCV RNA QUANT AND GENOTYPE Routine 07/22/2024 11:17 AM SUPERVISOR GRIPS Need for hepatitis C screening test HIV ANTIGEN ANTIBODY COMBO Routine 07/22/2024 11:17 AM SUPERVISOR GRIPS Screening for HIV (human immunodeficiency virus) T3 TOTAL Routine 07/22/2024 11:17 AM SUPERVISOR GRIPS Cerebrovascular accident (CVA), unspecified mechanism (H) Muscle weakness (generalized) VITAMIN D DEFICIENCY SCREENING Routine 07/22/2024 11:17 AM SUPERVISOR GRIPS Cerebrovascular accident (CVA), unspecified mechanism (H) Muscle weakness (generalized) VITAMIN B12 Routine 07/22/2024 11:17 AM SUPERVISOR GRIPS Cerebrovascular accident (CVA), unspecified mechanism (H) Muscle weakness (generalized) T4 FREE Routine 07/22/2024 11:17 AM SUPERVISOR GRIPS Cerebrovascular accident (CVA), unspecified mechanism (H) Muscle weakness (generalized) THYROID PEROXIDASE ANTIBODY Routine 07/22/2024 11:17 AM SUPERVISOR GRIPS Cerebrovascular accident (CVA), unspecified mechanism (H) Muscle weakness (generalized) TSH Routine 07/22/2024 11:17 AM SUPERVISOR GRIPS Cerebrovascular accident (CVA), unspecified mechanism (H) Muscle [...] with platelets and differential (09/18/2024 1:23 PM SUPERVISOR GRIPS) Only the most recent of3 resultswithin the time period is included. WBC Count 13.5(H) 4.0 - 11.0 10e3/uL 09/18/2024 1:38 PM SUPERVISOR GRIPS RM LABORATORY RBC Count 4.81 3.80 - 5.20 10e6/uL 09/18/2024 1:38 PM SUPERVISOR GRIPS RM LABORATORY Hemoglobin 14.6 11.7 - 15.7 g/dL 09/18/2024 1:38 PM SUPERVISOR GRIPS RM LABORATORY Hematocrit 43.6 35.0 - 47.0 % 09/18/2024 1:38 PM SUPERVISOR GRIPS RM LABORATORY MCV 91 78 - 100 fL 09/18/2024 1:38 PM SUPERVISOR GRIPS RM LABORATORY MCH 30.4 26.5 - 33.0 pg 09/18/2024 1:38 PM SUPERVISOR GRIPS RM LABORATORY MCHC 33.5 31.5 - 36.5 g/dL 09/18/2024 1:38 PM SUPERVISOR GRIPS RM LABORATORY RDW 12.4 10.0 - 15.0 % 09/18/2024 1:38 PM SUPERVISOR GRIPS RM LABORATORY Platelet Count 279 150 - 450 10e3/uL 09/18/2024 1:38 PM SUPERVISOR GRIPS RM LABORATORY % Neutrophils 86 % 09/18/2024 1:38 PM SUPERVISOR GRIPS RM LABORATORY % Lymphocytes 11 % 09/18/2024 1:38 PM SUPERVISOR GRIPS RM LABORATORY % Monocytes 3 % 09/18/2024 1:38 PM SUPERVISOR GRIPS RM LABORATORY % Eosinophils 0 % 09/18/2024 1:38 PM SUPERVISOR GRIPS RM LABORATORY % Basophils 0 % 09/18/2024 1:38 PM SUPERVISOR GRIPS RM LABORATORY % Immature Granulocytes 0 % 09/18/2024 1:38 PM SUPERVISOR GRIPS RM LABORATORY Absolute Neutrophils 11.5(H) 1.6 - 8.3 10e3/uL 09/18/2024 1:38 PM SUPERVISOR GRIPS RM LABORATORY Absolute Lymphocytes 1.4 0.8 - 5.3 10e3/uL 09/18/2024 1:38 PM SUPERVISOR GRIPS LABORATORY Absolute Monocytes 0.4 0.0 - 1.3 10e3/uL 09/18/2024 1:38 PM SUPERVISOR GRIPS LABORATORY Absolute Eosinophils 0.1 0.0 - 0.7 10e3/uL 09/18/2024 1:38 PM SUPERVISOR GRIPS LABORATORY Absolute Basophils 0.0 0.0 - 0.2 10e3/uL 09/18/2024 1:38 PM SUPERVISOR GRIPS LABORATORY Absolute Immature Granulocytes 0.1 <=0.4 10e3/uL 09/18/2024 1:38 PM SUPERVISOR GRIPS LABORATORY Blood BLOOD SPECIMEN / Unknown Venipuncture / Unknown 09/18/2024 1:23 PM SUPERVISOR GRIPS 09/18/2024 1:31 PM SUPERVISOR GRIPS us Denise Woodson APRN ORDNANCE KEEPER LAB - BLOOD ORDERABLES Final Result LABORATORY [facility] [address] [facility] (no room number, 1st floor of clinic) [place] [address], [facility] * Xray Imaging - HIM Scan (09/15/2024 12:00 AM SUPERVISOR GRIPS) Only the most recent of2 resultswithin the time period is included. Anatomical Region Laterality Modality Other 09/15/2024 us Provider Outside IMG DIAGNOSTIC IMAGING ORDERABL ES Final Result * CT Chest Pulmonary Embolism w Contrast (09/13/2024 12:59 PM SUPERVISOR GRIPS) Anatomical Region Laterality Modality Chest, SUBRAD CT BODY, UMP CT CHEST Computed Tomography 09/13/2024 12:5 9 PM SUPERVISOR GRIPS Impressions 09/13/2024 2:23 PM SUPERVISOR GRIPS IMPRESSION: 1. No pulmonary artery embolism. 2. Mild emphysema and mild bronchiolitis with bronchial wall thickening and pulmonary air trapping. No pneumonic infiltrate or pleural effusion. Narrative 09/13/2024 2:23 PM SUPERVISOR GRIPS EXAM: CT CHEST PULMONARY EMBOLISM W CONTRAST LOCATION: [facility] DATE: 09/13/2024 INDICATION: Chest pain and shortness [...] CT CHEST PULMONARY EMBOLISM W CONTRAST LOCATION: [facility] DATE: 09/13/2024 INDICATION: Chest pain and shortness [...] SARS-CoV2 PCR (COVID-19) Nasopharyngeal (09/13/2024 11:49 AM SUPERVISOR GRIPS) Influenza A PCR Negative Negative 09/13/2024 12:31 PM SUPERVISOR GRIPS LABORATORY Influenza B PCR Negative Negative 09/13/2024 12:31 PM SUPERVISOR GRIPS LABORATORY RSV PCR Negative Negative 09/13/2024 12:31 PM SUPERVISOR GRIPS LABORATORY SARS CoV2 PCR Negative Negative 09/13/2024 12:31 PM SUPERVISOR GRIPS LABORATORY Comment:NEGATIVE: SARS-CoV-2 (COVID-19) RNA not detected, presumed negative. Swab NASOPHARYNGEAL STRUCTURE / Unknown Non-blood Collection / Unknown 09/13/2024 11:49 AM SUPERVISOR GRIPS 09/13/2024 11:52 AM SUPERVISOR GRIPS Narrative LABORATORY - 09/13/2024 12:31 PM SUPERVISOR GRIPS Testing was performed using the Xpert Xpress CoV2/Flu/RSV Assay on the [employer] GeneXpert Instrument. This test should be ordered [...] management. This test was validated by the [facility]. These laboratories are certified under the Clinical Laboratory Improvement Amendments of 1988 (CLIA-88) as qualified to perfom high complexity laboratory testing. Sameer Castillo DO LAB - MICRO GENERA L ORDERABLES Final Result LABORATORY [facility] [address] 1st floor, [address] [place] [address], [facility] [phone] * Chest XR, PA & LAT (09/13/2024 11:25 AM SUPERVISOR GRIPS) Anatomical Region Laterality Modality Chest Digital Radiogra phy 09/13/2024 11:2 5 AM SUPERVISOR GRIPS Impressions 09/13/2024 12:27 PM SUPERVISOR GRIPS IMPRESSION: Pulmonary hyperinflation consistent with known emphysema. PFO closure device. Mild bibasilar opacities likely reflect atelectasis. Stable biapical scarring. No pleural effusion. Stable heart size. Narrative 09/13/2024 12:27 PM SUPERVISOR GRIPS EXAM: XR CHEST 2 VIEWS LOCATION: [facility] DATE: 09/13/2024 INDICATION: chst pain and sob aftr aspirationj COMPARISON: CT 03/18/2024 Procedure Note Dionicio Ennis MD - 09/13/2024 EXAM: XR CHEST 2 VIEWS LOCATION: [facility] DATE: 09/13/2024 INDICATION: chst pain and sob aftr aspirationj COMPARISON: CT 03/18/2024 IMPRESSION: Pulmonary hyperinflation consistent with known emphysema. PFOclosure device. Mild bibasilar opacities likely reflect atelectasis.Stable biapical scarring. No pleural effusion. Stable heart size. Sameer Castillo DO IMG DIAGNOSTIC TAYLA GING ORDERABLES Final Result * Extra Blue Top Tube (09/13/2024 11:06 AM SUPERVISOR GRIPS) Hold Specimen x 09/13/2024 11:46 AM SUPERVISOR GRIPS LABORATORY Blood VENOUS LINE / Unknown Venipuncture / Unknown 09/13/2024 11:06 AM SUPERVISOR GRIPS 09/13/2024 11:15 AM SUPERVISOR GRIPS Sameer Clay'Neill DO LAB - BLOOD ORDERA BLES Final Result LABORATORY [facility] [address] 1[address] floor, [address] [place] [address], [facility] [phone] * Troponin T, High Sensitivity (09/13/2024 11:06 AM SUPERVISOR GRIPS) Pathologist [facility] Troponin T, High Sensitivity <6 <=14 ng/L 09/13/2024 11:47 AM SUPERVISOR GRIPS LABORATORY Comment: Either a High Sensitivity Troponin [...] Unknown Venipuncture / Unknown 09/13/2024 11:06 AM SUPERVISOR GRIPS 09/13/2024 11:15 AM SUPERVISOR GRIPS Sameer Castillo DO LAB - BLOOD ORDERA BLES Final Result LABORATORY [facility] [address] floor, [address] [place] [address], [facility] [phone] * (ABNORMAL) D dimer quantitative (09/13/2024 11:06 AM SUPERVISOR GRIPS) [facility] D-Dimer Quantitative 0.82(H) 0.00 - 0.50 ug/mL FEU 09/13/2024 11:[address] [facility] Blood VENOUS LINE / Unknown Venipuncture / Unknown 09/13/2024 11:06 AM SUPERVISOR GRIPS 09/13/2024 11:15 AM SUPERVISOR GRIPS Narrative LABORATORY - 09/13/2024 11:54 AM SUPERVISOR GRIPS This D-dimer assay is intended for use in conjunction with a clinical pretest probability assessment model to exclude pulmonary embolism (PE) and deep venous thrombosis (DVT) in outpatients suspected of PE or DVT. The cut-off value is 0.50 ug/mL FEU. Sameer Castillo DO LAB - BLOOD ORDERA BLES Final Result LABORATORY [facility] [address] 1[address] floor, [address] [place] [address], [facility] [phone] * (ABNORMAL) Comprehensive metabolic panel (09/13/2024 11:06 AM [facility]) Only the most recent of2 resultswithin the time period is included. [facility] Sodium 142 135 - 145 mmol/L 09/13/2024 11:[address] [facility] Potassium 4.6 3.4 - 5.3 mmol/L 09/13/2024 11:[address] [facility] Carbon Dioxide (CO2) 29 22 - 29 mmol/L 09/13/2024 11:[address] [facility] Anion Gap 10 7 - 15 mmol/L 09/13/2024 11:[address] [facility] Urea Nitrogen 14.5 6.0 - 20.0 mg/dL 09/13/2024 11:[address] [facility] Creatinine 0.82 0.51 - 0.95 mg/dL 09/13/2024 11:[address] [facility] GFR Estimate 88 >60 mL/min/1.7 3m2 09/13/2024 11:[address] [facility] Comment:eGFR calculated us2020 CKD-EPI equation. Calcium 10.1 8.8 - 10.4 mg/dL 09/13/2024 11:[address] [facility] Comment:Reference intervals for this test were updated on 03/31/2024 to reflect our healthy population more accurately. There may be differences in the flagging of prior results with similar values performed with this method. Those prior results can be interpreted in the context of the updated reference intervals. Chloride 103 98 - 107 mmol/L 09/13/2024 11:[address] [facility] Glucose 105(H) 70 - 99 mg/dL 09/13/2024 11:[address] [facility] Alkaline Phosphatase 117 40 - 150 U/L 09/13/2024 11:[address] [facility] AST 28 0 - 45 U/L 09/13/2024 11:[address] [facility] ALT 27 0 - 50 U/L 09/13/2024 11:[address] [facility] Protein Total 7.9 6.4 - 8.3 g/dL 09/13/2024 11:[address] [facility] Albumin 4.4 3.5 - 5.2 g/dL 09/13/2024 11:[address] [facility] Bilirubin Total 0.9 <=1.2 mg/dL 09/13/2024 11:[address] [facility] Blood VENOUS LINE / Unknown Venipuncture / Unknown 09/13/2024 11:06 AM [facility] 09/13/2024 11:15 AM [facility] Sameer Castillo DO LAB - BLOOD ORDERA BLES Final Result LABORATORY [facility] [address] floor, [address] [place] [address], [facility] [phone] * EKG 12 lead (09/13/2024 10:53 AM [facility]) Systolic Blood Pressure mmHg RADIOLOGY RESULTS Diastolic Blood Pressure mmHg RADIOLOGY RESULTS Ventricular Rate 88 BPM RAD IOLOGY RESULTS Atrial Rate 88 BPM RADIOLOG Y RESULTS AK Interval 148 ms RADIOLOG Y RESULTS QRS Duration 78 ms RADIOLO GY RESULTS QT 316 ms RADIOLOGY RESULTS QTc 382 ms RADIOLOGY RESULTS P [place] 62 degrees RADIOLOGY RESULTS R AXIS 49 degrees RADIOLOGY RESULTS T [place] -12 degrees RADIOLOGY RESULTS Interpretation ECG Sinus rhythm Possible Left atrial enlargement T wave abnormality, consider inferolateral ischemia Abnormal ECG When compared with ECG of 10-May-2024 11:25, T wave inversion more evident in Inferior leads T wave inversion now evident in Anterior leads Confirmed by GENERATED REPORT, COMPUTER ([id number]), editorial writer Felicita Pettit ([id number]) on 09/13/2024 12:08:04 PM RADIOLOGY RESULTS 09/13/2024 10:5 3 AM [facility] 09/13/2024 12:08 PM [facility] Tran Qureshi MD ECG ORDERABLES Edited R esult - Final Performing Organization Address [facility] Co de Phone Number RADIOLOGY RESULTS * EEG Video 2-12 hrs Continuous Monitoring (09/11/2024 11:00 AM [facility]) Narrative [employer] - 09/13/2024 10:50 PM [facility] VIDEO EEG DATE: 09/11/2024 VIDEO EEG LOG: [id number] VIDEO EEG DAY#: 1 VIDEO EEG SOURCE [...] EEG ORDERABLES Final Result Performing Organization Address [facility] Co de Phone Number [id number] * CTA Angiogram coronary artery (08/07/2024 4:31 PM [facility]) Anatomical Region Laterality Modality Cardio, SUBRAD CT BODY, UMP CT CHEST, RAD CT Computed Tomography Impressions 08/07/2024 4:43 PM [facility] IMPRESSION: 1. Normal coronary anatomy with no [...] SERGEI WATTERS MD Narrative 08/07/2024 4:43 PM [facility] Procedure: CTA ANGIOGRAM CORONARY ARTERY Examination Date: [...] Images were reconstructed and analyzed on a [employer] workstation. Scan protocol was optimized to minimize [...] Images were reconstructed and analyzed on a [employer] workstation. Scan protocol was optimized to minimize [...] Radiologist Consult For Cardiology (08/07/2024 4:31 PM [facility]) Anatomical Region Laterality Modality Computed Tomogra phy Impressions 08/10/2024 4:16 PM [facility] IMPRESSION: Pectus excavatum. Mosaic attenuation of the lungs suggests possible air trapping. MARLO FAULKNER MD Narrative 08/10/2024 4:16 PM [facility] RADIOLOGIST CONSULT FOR CARDIOLOGY 08/07/2024 4:31 PM [...] HIV Antigen Antibody Combo (07/22/2024 11:17 AM [facility]) HIV Antigen Antibody Combo Nonreactive Nonreactive 07/23/2024 2:55 AM [facility] Comment:Negative HIV-1 p24 a ntigen [...] Unknown Venipuncture / Unknown 07/22/2024 11:17 AM [facility] 07/22/2024 11:17 AM [facility] us Denise Woodson APRN ORDNANCE KEEPER LAB - BLOOD ORDERABLES Final Result [facility] [address] [facility] [address] [facility], [address] [place] [address] * Hepatitis C Screen Reflex to HCV RNA Quant and Genotype (07/22/2024 11:17 AM [facility]) Hepatitis C Antibody Nonreactive Nonreactive 07/23/2024 10:25 AM [facility] Comment:A nonreactive screen ing test [...] Unknown Venipuncture / Unknown 07/22/2024 11:17 AM [facility] 07/22/2024 11:17 AM [facility] Denise Woodson APRN [facility] - BLOOD ORDERABLES Final Result Performing Organization Address City/[facility]/ZIP Co de Phone Number LABORATORY [facility] [address] [facility], [address] [address] * Vitamin D Deficiency (07/22/2024 11:17 AM [facility]) [facility] Vitamin D, Total (25-Hydroxy) 30 20 - 50 ng/mL 07/23/2024 10:41 AM [facility] Comment:optimum levels Blood BLOOD SPECIMEN / Unknown Venipuncture / Unknown 07/22/2024 11:17 AM [facility] 07/22/2024 11:17 AM [facility] Narrative LABORATORY - 07/23/2024 10:41 AM [facility] Season, race, dietary intake, and treatment affect the concentration of 89-qdlskdf-Pmqodqw D. Values may decrease during winter months and increase during summer months. Vitamin D determination is routinely performed by an immunoassay specific for 25 hydroxyvitamin D3. If an individual is on vitamin D2(ergocalciferol) supplementation, please specify 25 OH vitamin D2 and D3 level determination by LCMSMS test VITD23. Denise Woodson APRN [facility] - BLOOD ORDERABLES Final Result LABORATORY [facility] [address] [facility], [address] [address] * (ABNORMAL) TSH (07/22/2024 11:17 AM [facility]) TSH 8.19(H) 0.30 - 4.20 uIU/mL 07/23/2024 10:41 AM [facility] Blood BLOOD SPECIMEN / Unknown Venipuncture / Unknown 07/22/2024 11:17 AM [facility] 07/22/2024 11:17 AM [facility] Denise Woodson APRN ORDNANCE KEEPER LAB - BLOOD ORDERABLES Final Result LABORATORY [facility] [address] [facility], [address] * (ABNORMAL) Thyroid peroxidase antibody (07/22/2024 11:17 AM [facility]) Pathologist [facility] Thyroid Peroxidase Antibody 2,881(H) <35 IU/mL 07/23/2024 10:53 AM [facility]PROT/END O Blood BLOOD SPECIMEN / Unknown Venipuncture / Unknown 07/22/2024 11:17 AM [facility] 07/22/2024 11:17 AM [facility] Denise Woodson APRN, CNP LAB - BLOOD ORDERABLES Final Result [facility]/PROT/ENDO [facility]/Prot/Endo [address] [facility], [address] * T4, free (07/22/2024 11:17 AM [facility]) Only the most recent of2 resultswithin the time period is included. Pathologist [facility] Free T4 1.27 0.90 - 1.70 ng/dL 07/23/2024 10:41 AM [facility] LABORATORY Blood BLOOD SPECIMEN / Unknown Venipuncture / Unknown 07/22/2024 11:17 AM [facility] 07/22/2024 11:17 AM [facility] Denise Woodson APRN, CNP LAB - BLOOD ORDERABLES Final Result LABORATORY [facility] [address] [facility], [address] [address] * T3, total (07/22/2024 11:17 AM [facility]) Pathologist [facility] T3 Total 131 85 - 202 ng/dL 07/23/2024 10:41 AM [facility] LABORATORY Blood BLOOD SPECIMEN / Unknown Venipuncture / Unknown 07/22/2024 11:17 AM [facility] 07/22/2024 11:17 AM [facility] Denise Woodson APRN ORDNANCE KEEPER LAB - BLOOD ORDERABLES Final Result LABORATORY [facility] Core Lab [address] [facility], [address] [address] * Vitamin B12 (07/22/2024 11:17 AM [facility]) [facility] Vitamin B12 456 232 - 1,245 pg/mL 07/23/2024 10:41 AM [facility] LABORATORY Blood BLOOD SPECIMEN / Unknown Venipuncture / Unknown 07/22/2024 11:17 AM [facility] 07/22/2024 11:17 AM [facility] Denise Woodson APRN ORDNANCE KEEPER LAB - BLOOD ORDERABLES Final Result LABORATORY [facility] Core Lab [address] [facility], [address] [address] * ZIO PATCH MAIL OUT (07/16/2024 [...] PM CDT Narrative 07/13/2024 4:29 PM CDT [id number]^EVER^AZRA^Analy [facility] Echocardiography Laboratory [address] [place] [address] Name: CHRISTOPHER TY : 1975 Study Date: 07/13/2024 03:16 PM Age: 48 yrs Gender: Female Patient Location: [facility] Reason For Study: TIA Ordering Physician: AZRA CURTIS Performed By: Janna Fenton BSA: 2.1 m2 Height: 68 in Weight: 214 lb HR: 71 BP: 138/92 mmHg Procedure Complete Portable Echo Adult. Definity ([facility] #[id number]) given intravenously. Contrast Definity. Technically difficult study.Extremely [...] Procedure Note Joe Matos MD - 07/13/2024 [id number]^EVER^AZRA^Analy [facility] [address] [place] [address] Name: CHRISTOPHER TY : 1975 Study Date: 07/13/2024 03:16 PM Age: 48 yrs Gender: Female Patient Location: [facility] Reason For Study: TIA Ordering Physician: AZRA CURTIS Performed By: Janna Fenton BSA: 2.1 m2 Height: 68 in Weight: 214 lb HR: 71 BP: 138/92 mmHg Procedure Complete Portable Echo Adult. Definity ([facility] #[id number]) givenintravenously. Contrast Definity. Technically difficult study.Extremely difficultacoustic [...] BLOOD ORDERABLES F inal Result U LABORATORY [facility] [address] [facility] [address] Building, [address] [place] [address], [facility] [address], [address] [place] [address], [facility] [phone] * Hemoglobin A1c (07/13/2024 12:40 PM CDT) Pathologist [facility] Estimated Average Glucose 111 <117 mg/dL 07/13/2024 [...] - BLOOD ORDERABLES F inal Result LABORATORY [facility] [address] floor, [address] [place] [address], [facility] [phone] * Glucose by meter (07/13/2024 7:56 AM CDT) [facility] GLUCOSE BY METER POCT 93 70 - 99 mg/dL 07/13/2024 8:03 AM CDT LABORATORY POC Blood, Capillary BLOOD SPECIMEN / Unknown 07/13/2024 7:56 AM CDT 07/13/2024 8:03 AM CDT Morgan Morales MD LAB - BEAKER POCT Final Resu lt Performing Organization Address City/[facility]/ZIP Co de Phone Number LABORATORY POC [facility] [address] floor, [address] [place] [address], [facility] * MR Brain w/o Contrast (07/13/2024 1:09 [...] CDT EXAM: MR BRAIN W/O CONTRAST LOCATION: [facility] DATE: 07/13/2024 INDICATION: right sided numnbess. difficulty swallowing. hx of strokes COMPARISON: MRI brain May 15, 2024. TECHNIQUE: Routine multiplanar multisequence head MRI without intravenous contrast. Procedure Note Alfred Kruger MD - 07/13/2024 EXAM: MR BRAIN W/O CONTRAST LOCATION: [facility] DATE: 07/13/2024 INDICATION: right sided [...] LAB - BLOOD ORDERABLES Final Result LABORATORY [facility] [address] [facility], [address] * (ABNORMAL) TSH with free T4 reflex (07/12/2024 11:28 PM CDT) TSH 9.38(H) 0.30 - 4.20 uIU/mL 07/13/2024 11:17 AM CDT [facility] Blood BLOOD SPECIMEN / Unknown Venipuncture / Unknown 07/12/2024 11:28 PM CDT 07/12/2024 11:35 PM CDT Azra Curtis PA-C LAB - BLOOD ORDERABLES F inal Result LABORATORY [facility] [address] [facility], [address] * Lab Result - HIM Scan [...] JEVON HOWELL MD us Denise Woodson APRN ORDNANCE KEEPER IMG MAMMOGRAPHY ORDERAB LES Final Result from Last 3 Months or Most Recently Relevant to Health Maintenance Additional Health Concerns Active Problems Noted Date Diagnosed Date Increased risk of re-admission 02/18/2024 Insurance [facility] * Guarantor: Candy Adame Account Type Relation to Patient Date of Phone Billing Address 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 [address] , [address] [place] [address] [employer] * Guarantor: Christopher Ty Account Type Relation to Patient Date of Phone Billing Address Medication Therapy Self 1975 [address] [place], [place] [id number] [place], [place] [address]Systems Maintenance Services Advance Directives For more information, please contact: [phone] * Full Code (Latest Code Status on [...] patie nt/ legal decision maker Care Teams Motor Builder Assembler Relationship Specialty Start Date End Date Winston Villatoro OD [facility] [place] [address] [place] [address] PCP - Ophthalmology Ophthalmology 02/11/13 Denise Woodson APRN ORDNANCE KEEPER [address] [place] [address] PCP - General Family Practice 09/21/20 Denise Woodson APRN ORDNANCE KEEPER [address] [place] [address] Assigned PCP 07/17/20 Usha Simon APRN ORDNANCE KEEPER [address] [facility], [place] [address] Nurse Practitioner Neurological Surgery 01/24/24 Dangelo Salinas MD [address] [place], [place] [id number] Neurology 01/27/24 Anastasia Stearns, RN Lead Senior Business Development Analyst 02/06/24 Germaine Lopez, W Community Health Worker Primary Care - CC 02/18/24 Joya Lira RPH [address] [place] [address] Pharmacist Pharmacist 05/25/24 Joya Lira RPH [address] [place] [address] Assigned MTM Pharmacist 06/08/24 Fabi Coates MD [address] [facility] [address] [place] [address] Genetics, Clinical 06/18/24 Danna Cardenas PA-C [address] [place] [address] Assigned Heart and Vascular Provider 07/08/24 Arthur Salas LICSW [address] [place] [address] Assigned Behavioral Health Provider 08/08/24 Randy Maradiaga DO [address] [place] [address] Assigned Neuroscience Provider 08/08/24
--- OUTSIDE RECORDS SUMMARY | 2024-09-20 19:19 | XMS_ITS | Encounter Summary ---
Author Organization [facility] Address [address] [place] [address] Care Team Providers Care Energy Assistant Name Role Phone Winston Villatoro OD Unavailable [phone] Denise Woodson APRN TIE TAMPER Unavailable [phone] Denise Woodson APRN TIE TAMPER Primary Care Provider Usha Simon APRN TIE TAMPER Unavailable [phone] Dangelo Salinas MD Unavailable Anastasia Stearns RN Unavailable [phone] Germaine Lopez [facility] Unavailable Joya Lira [facility] Unavailable Joya Lira [facility] Unavailable Fabi Coates MD Unavailable [phone] Danna CardenasC Unavailable [phone] Arthur Salas TRANSFER CAR OPERATOR Unavailable [phone] Randy Maradiaga DO Unavailable + Reason for Visit * Reason Onset Date Comments Erroneous encounter-disregard 09/18/2024 Encounter Details Date Type Department Care Team (Late st Contact Info) Description 09/18/2024 Telephone [facility] [address] [place] [phone] Denise Woodson APRN TIE TAMPER [address] [place] [place] [id number] Erroneous encounter-disregard Social History Tobacco Use Types [...] Never 09/16/2024 How often do you attend islam or sabianist serv ices? Never 09/16/2024 Do you belong [...] Answer Date Recorded PHQ-2 Score 0 09/18/2024 [facility] [place] [facility] Occupat ional Health - Occupational Stress [...] in an overnight jail, or couch-surfing.) Yes 09/16/2024 Are you worried [...] on file Legal Sex 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 ENVIRONMENTAL PERMITTING SPECIALIST Gender Identity Not on file Sexual [...] st Contact Info) Description 09/25/2024 11:00 AM ENVIRONMENTAL PERMITTING SPECIALIST Office Visit [facility] [address] [place] [phone] Denise Woodson, BARRERA TIE TAMPER [address] [place], [place] [phone] 09/29/2024 9:00 AM ENVIRONMENTAL PERMITTING SPECIALIST Virtual Visit [facility] Neurology [facility] [address] [facility] 3rd [place] [phone] Randy Maradiaga, [address] [address] 10/09/2024 1:20 PM ENVIRONMENTAL PERMITTING SPECIALIST Office Visit [facility] Heart [facility] [address] [facility] [address] [place] [phone] Danna Cardenas PA-C [address] [place], [place] [address] 10/15/2024 11:00 AM ENVIRONMENTAL PERMITTING SPECIALIST Office Visit [facility] [address] [place] [phone] Denise Woodson APRN TIE TAMPER [address] [place] [address] 10/30/2024 4:00 PM ENVIRONMENTAL PERMITTING SPECIALIST Virtual Visit [facility] V[facility] [place] [address] [place] [phone] Lisa Zambrano MD [address] [place] [address] 12/29/2024 12:45 PM CDT Office Visit [facility] [address] [facility] [address] [phone] Fabi Coates MD [address] [facility] 75 [place], [place] [address] 12/29/2024 1:45 PM CDT Office Visit [facility] [address] [facility] [address],[place] [phone] Fabi Coates MD [address] [facility] [address] [place] [address] 06/01/2025 11:15 AM CDT Appointment [facility] [address] [place] [phone] Robin Zepeda MD [address] [place] [address] 06/04/2025 11:00 AM CDT Office Visit [facility] Neurosurgery [address] 3rd [place] [phone] Robin Zepeda MD [address] [place] [address] Usha Simon APRN [address] [address] documented as of this encounter Goals Goal Patient Goal Type Associated Problems Recent Progress Patient-Stated? Author I would like additional resources and support to manage my health and prevent future avoidable ED visits/hospital admissions Care Plan Increased risk of re-admission 40%( 4 3:02 PM ENVIRONMENTAL PERMITTING SPECIALIST) Anastasia Talamantes, RN Note: Barriers: diagnosis of multiple, chronic, complex medical conditions, provider availability - wait time to complete appointments, etc. Strengths: motivated, engaged in care coordination Patient expressed understanding of goal: yes Action steps to achieve this goal: 1. I will follow up with my providers as scheduled/recommended - Pulmonology: TBD - Mental Health weekly - PT, OT and PLUG SORTER, continuing through [facility] [place]: - PCP: 09/18/2024 & 10/15/2024. - Vascular [...] clinic with 24/7 after hours services available. Power Plant Operator will remain available as needed. documented as of this encounter Visit Diagnoses Not on filedocumented in this encounter Additional Health Concerns Active Problems Noted Date Diagnosed Date Increased risk of re-admission 02/18/2024 Assessment Noted Time PHQ-9 Depression Total Score: 0 09/18/19 12:46 PM ENVIRONMENTAL PERMITTING SPECIALIST documented as of this encounter Care Teams Energy Assistant Relationship Specialty Start Date End Date Winston Villatoro OD [facility] [address] [facility] [address] [place] [address] PCP - Ophthalmology Ophthalmology 02/11/13 Denise Woodson APRN TIE TAMPER [address] [place] [address] PCP - General Family Practice 09/21/20 Denise Woodson APRN TIE TAMPER [address] [place] [address] Assigned PCP 07/17/20 Usha Simon APRN TIE TAMPER [address] [facility] [address] Nurse Practitioner Neurological Surgery 01/24/24 Dangelo Salinas MD [address] [place] [id number] Neurology 01/27/24 Anastasia Stearns, RN Lead Power Plant Operator 02/06/24 Germaine Lopez, W Community Health Worker Primary Care - CC 02/18/24 Joya Lira [facility] [address] [place] [address] Pharmacist Pharmacist 05/25/24 Joya Lira [facility] [address] [place] [address] Assigned MTM Pharmacist 06/08/24 Fabi Coates MD [address] [facility] 75 [place], [place] [address] Genetics, Clinical 06/18/24 Danna Cardenas PA-C [address] [place] [address] Assigned Heart and Vascular Provider 07/08/24 Arthur Salas TRANSFER CAR OPERATOR [address] [place] [address] Assigned Behavioral Health Provider 08/08/24 Randy Maradiaga DO [address] [place] [address] Assigned Neuroscience Provider 08/08/24 documented as of this encounter
--- OUTSIDE RECORDS SUMMARY | 2024-09-20 19:19 | XMS_ITS | Encounter Summary ---
Author Organization [facility] Address [address] [place] [address] Care Team Providers Care Home Extension Agent Name Role Phone Winston Villatoro OD Unavailable [phone] Denise Woodson APRN RN GERIATRIC Unavailable [phone] Denise Woodson APRN RN GERIATRIC Primary Care Provider Usha Simon APRN RN GERIATRIC Unavailable [phone] Dangelo Salinas MD Unavailable Anastasia Stearns RN Unavailable [phone] Germaine Lopez [facility] Unavailable Joya Lira [facility] Unavailable [phone] Joya Lira [facility] Unavailable [phone] Fabi Coates MD Unavailable [phone] Danna CardenasC Unavailable [phone] Arthur Salas AUTOMAT WATCHER Unavailable [phone] Randy Maradiaga DO Unavailable + Encounter Details [...] How often do you attend baptist or yarsani serv ices? Never 02/28/2024 Do [...] Answer Date Recorded PHQ-2 Score 2 08/04/2024 [facility] of Occupat ional Health [...] on file Legal Sex 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 AGRONOMY TEACHER Gender Identity Not on file Sexual [...] st Contact Info) Description 09/25/2024 11:00 AM AGRONOMY TEACHER Office Visit [facility] [address] [place] [phone] Denise Woodson APRN [facility] [address] [place] [address] 09/29/2024 9:00 AM AGRONOMY TEACHER Virtual Visit [facility] Neurology [address] 3rd [place] [address] Randy Maradiaga, DO 909 [place] [address] 10/09/2024 1:20 PM AGRONOMY TEACHER Office Visit [facility] [place] [address] [facility] [address] [place] [phone] Danna Cardenas PA-C 6405 [place], [place] [address] 10/15/2024 11:00 AM AGRONOMY TEACHER Office Visit [facility] [address] [place] [address] Denise Woodson APRN RN GERIATRIC [address] [place], [place] [address] 10/30/2024 4:00 PM AGRONOMY TEACHER Virtual Visit [facility] Vascular [facility] [place] [address] [place] [phone] Lisa Zambrano MD [address] [place], [place] [address] 12/29/2024 12:45 PM CDT Office Visit [facility] [address] [place] [address] Ave [address] [phone] Fabi Coates MD [address] [address] 12/29/2024 1:45 PM CDT Office Visit [facility] Pediatric [facility]ty Clinic [address] [place], [place] [address]e Explorer [address] [phone] Fabi Coates MD [address] 63[address] 06/01/2025 11:15 AM CDT Appointment [facility] Imaging [address] [place] [phone] Robin Zepeda MD [address] [place] [address] 06/04/2025 11:00 AM CDT Office Visit [facility] Neurosurgery Clinic [address] 3rd [place] [phone] Robin Zepeda MD [address] [place] [address] [phone] Usha Simon APRN RN GERIATRIC [address] [place] [address]85 documented as of this encounter Goals Goal Patient Goal Type Associated Problems Recent Progress Patient-Stated? Author I would like additional resources and support to manage my health and prevent future avoidable ED visits/hospital admissions Care Plan Increased risk of re-admission 40%( 4 3:02 PM AGRONOMY TEACHER) Anastasia Talamantes, RN Note: Barriers: diagnosis of multiple, chronic, complex medical conditions, provider availability - wait time to complete appointments, etc. Strengths: motivated, engaged in care coordination Patient expressed understanding of goal: yes Action steps to achieve this goal: 1. I will follow up with my providers as scheduled/recommended - Pulmonology: TBD - Mental Health weekly - PT, OT and TROLLEY CAR OVERHAULER, continuing through [facility] [place]: - PCP: 09/18/2024 & 10/15/2024. - Vascular [...] clinic with 24/7 after hours services available. Principal Examiner will remain available as needed. documented as of this encounter Visit Diagnoses Not on filedocumented in this encounter Additional Health Concerns Active Problems Noted Date Diagnosed Date Increased risk of re-admission 02/18/2024 Infection Onset Date Last Indicated Resolved Time Rule Out COVID-19 09/13/2024 09/13/2024 09/13/2024 12:31 PM AGRONOMY TEACHER Assessment Noted Time PHQ-9 Depression Total Score: 5 08/03/20 24 12:49 PM AGRONOMY TEACHER documented as of this encounter Care Teams Home Extension Agent Relationship Specialty Start Date End Date Winston Villatoro OD [facility] [address] [facility] [address] [place] [address] PCP - Ophthalmology Ophthalmology 02/11/13 Denise Wodoson APRN RN GERIATRIC [address] [place] [address] PCP - General Family Practice 09/21/20 Denise Woodson APRN RN GERIATRIC [address] [place] [address] Assigned PCP 07/17/20 Usha Simon APRN RN GERIATRIC [address] [facility] [address] Nurse Practitioner Neurological Surgery 01/24/24 Dangelo Salinas MD [address] [place] [address] Neurology 01/27/24 Anastasia Stearns, RN Lead Principal Examiner 02/06/24 Germaine Lopez, W Community Health Worker Primary Care - CC 02/18/24 Joya Lira [facility] [address] [place] [address] Pharmacist Pharmacist 05/25/24 Joya Lira [facility] [address] [place] [address] Assigned MTM Pharmacist 06/08/24 Fabi Coates MD [address] [place] [address] 75 [place], [place] [phone] Genetics, Clinical 06/18/24 Danna Cardenas PA-C 6405 [place] [address] Assigned Heart and Vascular Provider 07/08/24 Arthur Salas LICSW [address] [place] [address] Assigned Behavioral Health Provider 08/08/24 Randy Maradiaga DO 909 [place], [place] 68[address] Assigned Neuroscience Provider 08/08/24 documented as of this encounter
--- OUTSIDE RECORDS SUMMARY | 2024-09-20 19:19 | XMS_ITS | Encounter Summary ---
Author Organization [facility] Address [address] [place] [address] Care Team Providers Care Refined Syrup Operator Name Role Phone Winston Villatoro OD Unavailable [phone] Denise Woodson APRN [employer] SAL[employer] Unavailable [phone] Denise Woodson APRN [employer] SALES Primary Care Provider Usha Simon APRN [employer] SALES Unavailable [phone] Dangelo Salinas MD Unavailable Anastasia Stearns RN Unavailable Germaine Lopez [facility] Unavailable Joya Lira [facility] Unavailable Joya Lira [facility] Unavailable Fabi Coates MD Unavailable [phone] Danna CardenasC Unavailable [phone] Arthur Salas SET UP AND LAY OUT INSPECTOR Unavailable [phone] Randy Maradiaga DO Unavailable + Reason for Visit * Reason Comments Physical Encounter Details Date Type Department Care Team (Late st Contact Info) Description 09/18/2024 1:00 PM QA AUTOMATION DEVELOPER Office Visit [address] [address] Denise WoodsonBARRERA [employer]OM[employer]OR [employer] TICKET SALES [address] [place] [address] Chronic obstructive pulmonary disease without exacerbation (H) [...] Never 09/16/2024 How often do you attend worship or jew serv ices? 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7 cm (5' 8) 09/18/2024 12:51 PM QA AUTOMATION DEVELOPER Body Mass Index 31.78 09/18/2024 12:51 PM QA AUTOMATION DEVELOPER documented in this encounter Progress Notes * Denise Woodson, [employer]OR [employer]ICKET SALES - 09/18/2024 1:00 PM CST Assessment & [...] having her establish with pulmonology at the [facility]. The longitudinal plan of care for the [...] 20mg (started 09/15) HPI Aspirated hamburger 09/07/24. [place] [facility] 09/08/24. Irritation and cough continued over the week. 09/13/24 had worsening symptoms and presented to [facility]. 09/15/24 again had worsening symptoms. Presented to [place] ED. Repeated CT scans. Nothing found at [...] mild bronchiolitis. She was previously evaluated at [facility] as a child. Dx with bronchopulmonary [...] Status --------- ------ CBC with platelets and d...[[id number]] Abnormal Final result Please view results for [...] 10e3/uL Signed Electronically by: Denise Woodson APRN [employer] SALES AUTOMATION DEVELOPER documented in this encounter Plan of Treatment Upcoming Encounters Date Type Department Care Team (Late st Contact Info) Description 09/25/2024 11:00 AM QA AUTOMATION DEVELOPER Office Visit [facility] [address] [place] [address] Denise Woodson APRN [employer] TICK[employer] SALES [address] [place] [address] 09/29/2024 9:00 AM QA AUTOMATION DEVELOPER Virtual Visit [facility] Neurology [place] [address] [facility] 3rd [place] [phone] Randy Maradiaga, 909 [place], [place] [address] 10/09/2024 1:20 PM QA AUTOMATION DEVELOPER Office Visit [facility] Heart [facility] 6405 [facility] [address] [place] [phone] Danna Cardenas PA-C 6405 [place], [place] [address] 10/15/2024 11:00 AM QA AUTOMATION DEVELOPER Office Visit [facility] [address] [place] [phone] Denise Woodson, [place] SALES [address] [place] [address] 10/30/2024 4:00 PM QA AUTOMATION DEVELOPER Virtual Visit [facility] Vascular [facility] [address] [place] [phone] Lisa Zambrano MD [address] [facility] [place], [place] [address] 12/29/2024 12:45 PM CDT Office Visit [facility] [address]th Flr,[place] [phone] Fabi Coates MD 420 [facility] 75 [place], [place] [address] 12/29/2024 1:45 PM CDT Office Visit [facility] 2450 [facility] Clinic [address],[place] [phone] Fabi Coates MD [address] [place] [facility] 75 [place], [place] [address] 06/01/2025 11:15 AM CDT Appointment [facility] Imaging [address] [place] [phone] Robin Zepeda MD [address] [place] [address]38[address] 06/04/2025 11:00 AM CDT Office Visit [facility] Neurosurgery [facility] [address] [place] [address] 3rd [place] [phone] Robin Zepeda MD [address] [place] [address] 161335 Usha Simon APRN PROM[employer]OR [employer] TICK[employer] SALES [address] 645[address] documented as of this encounter Goals Goal Patient Goal Type Associated Problems Recent Progress Patient-Stated? Author I would like additional resources and support to manage my health and prevent future avoidable ED visits/hospital admissions Care Plan Increased risk of re-admission 40%( 4 3:02 PM QA AUTOMATION DEVELOPER) Anastasia Talamantes, RN Note: Barriers: diagnosis of multiple, chronic, complex medical conditions, provider availability - wait time to complete appointments, etc. Strengths: motivated, engaged in care coordination Patient expressed understanding of goal: yes Action steps to achieve this goal: 1. I will follow up with my providers as scheduled/recommended - Pulmonology: TBD - Mental Health weekly - PT, OT and CONSULTATIVE SALES ASSOCIATE, continuing through [facility] [place]: - PCP: 09/18/2024 & 10/15/2024. - Vascular [...] clinic with 24/7 after hours services available. Yard Conductor will remain available as needed. documented as of this encounter Procedures Procedure Name Priority Date/Time Associated Diagnosis Comments CBC WITH PLATELETS AND DIFFERENTIAL Routine 09/18/2024 1:23 PM QA AUTOMATION DEVELOPER Acute cough CBC WITH PLATELETS & DIFFERENTIAL Routine 09/18/2024 1:23 PM QA AUTOMATION DEVELOPER Acute cough documented in this encounter Results * (ABNORMAL) CBC with platelets and differential (09/18/2024 1:23 PM QA AUTOMATION DEVELOPER) WBC Count 13.5(H) 4.0 - 11.0 10e3/uL 09/18/2024 1:38 PM QA AUTOMATION DEVELOPER RM LABORATORY RBC Count 4.81 3.80 - 5.20 10e6/uL 09/18/2024 1:38 PM QA AUTOMATION DEVELOPER RM LABORATORY Hemoglobin 14.6 11.7 - 15.7 g/dL 09/18/2024 1:38 PM QA AUTOMATION DEVELOPER RM LABORATORY Hematocrit 43.6 35.0 - 47.0 % 09/18/2024 1:38 PM QA AUTOMATION DEVELOPER RM LABORATORY MCV 91 78 - 100 fL 09/18/2024 1:38 PM QA AUTOMATION DEVELOPER RM LABORATORY MCH 30.4 26.5 - 33.0 pg 09/18/2024 1:38 PM QA AUTOMATION DEVELOPER RM LABORATORY MCHC 33.5 31.5 - 36.5 g/dL 09/18/2024 1:38 PM QA AUTOMATION DEVELOPER RM LABORATORY RDW 12.4 10.0 - 15.0 % 09/18/2024 1:38 PM QA AUTOMATION DEVELOPER RM LABORATORY Platelet Count 279 150 - 450 10e3/uL 09/18/2024 1:38 PM QA AUTOMATION DEVELOPER RM LABORATORY % Neutrophils 86 % 09/18/2024 1:38 PM QA AUTOMATION DEVELOPER RM LABORATORY % Lymphocytes 11 % 09/18/2024 1:38 PM QA AUTOMATION DEVELOPER RM LABORATORY % Monocytes 3 % 09/18/2024 1:38 PM QA AUTOMATION DEVELOPER RM LABORATORY % Eosinophils 0 % 09/18/2024 1:38 PM QA AUTOMATION DEVELOPER RM LABORATORY % Basophils 0 % 09/18/2024 1:38 PM QA AUTOMATION DEVELOPER RM LABORATORY % Immature Granulocytes 0 % 09/18/2024 1:38 PM QA AUTOMATION DEVELOPER RM LABORATORY Absolute Neutrophils 11.5(H) 1.6 - 8.3 10e3/uL 09/18/2024 1:38 PM QA AUTOMATION DEVELOPER RM LABORATORY Absolute Lymphocytes 1.4 0.8 - 5.3 10e3/uL 09/18/2024 1:38 PM QA AUTOMATION DEVELOPER RM LABORATORY Absolute Monocytes 0.4 0.0 - 1.3 10e3/uL 09/18/2024 1:38 PM QA AUTOMATION DEVELOPER RM LABORATORY Absolute Eosinophils 0.1 0.0 - 0.7 10e3/uL 09/18/2024 1:38 PM QA AUTOMATION DEVELOPER RM LABORATORY Absolute Basophils 0.0 0.0 - 0.2 10e3/uL 09/18/2024 1:38 PM QA AUTOMATION DEVELOPER RM LABORATORY Absolute Immature Granulocytes 0.1 <=0.4 10e3/uL 09/18/2024 1:38 PM QA AUTOMATION DEVELOPER RM LABORATORY Blood BLOOD SPECIMEN / Unknown Venipuncture / Unknown 09/18/2024 1:23 PM QA AUTOMATION DEVELOPER 09/18/2024 1:31 PM QA AUTOMATION DEVELOPER us Denise Woodson APRN PROMOTOR [employer] TICKET SALES LAB - BLOOD ORDERABLES Final Result RM LABORATORY [facility] [place] [facility] [address] [facility] (no room number, 1st floor of clinic) [place] [id number], [facility] documented in this encounter Visit Diagnoses Diagnosis Chronic obstructive pulmonary disease without exacerbation (H)- Primary Acute cough BPD (bronchopulmonary dysplasia) (H) Chronic respiratory disease arising in the period documented in this encounter Additional Health Concerns Active Problems Noted Date Diagnosed Date Increased risk of re-admission 02/18/2024 Assessment Noted Time PHQ-9 Depression Total Score: 0 09/18/19 25 12:46 PM QA AUTOMATION DEVELOPER documented as of this encounter Care Teams Refined Syrup Operator Relationship Specialty Start Date End Date Winston Villatoro OD [facility] [place] [address] [place] [address] PCP - Ophthalmology Ophthalmology 02/11/13 Denise Woodson APRN PROMOTOR GROUP TICKET SALES [address] [address] [facility] [place] [address] PCP - General Family Practice 09/21/20 Denise Woodson APRN [employer]OM[employer]OR [employer] SALES [address] [address] [facility] [place] [place] [address] Assigned PCP 07/17/20 Usha Simon APRN PROMOTOR [employer] TICK[employer] SALES 909 [facility]121[place], [place] [address] Nurse Practitioner Neurological Surgery 01/24/24 Dangelo Salinas MD [address] [place], [place] [phone] Neurology 01/27/24 Anastasia Stearns, RN Lead Yard Conductor 02/06/24 Germaine Lopez, W Community Health Worker Primary Care - CC 02/18/24 Joya Lira [facility] [address] [place] [address] Pharmacist Pharmacist 05/25/24 Joya Lira [facility] [address] [place] [address] Assigned MTM Pharmacist 06/08/24 Fabi Coates MD 420 [facility] EMERG[facility] 75 [place] [address] Genetics, Clinical 06/18/24 Danna Cardenas PA-C 6405 [place] [address] Assigned Heart and Vascular Provider 07/08/24 Arthur Salas SET UP AND LAY OUT INSPECTOR [address] [place] [address] Assigned Behavioral Health Provider 08/08/24 Randy Maradiaga DO 909 [place] [address] Assigned Neuroscience Provider 08/08/24 documented as of this encounter
--- OUTSIDE RECORDS SUMMARY | 2024-09-20 19:19 | XMS_ITS | Encounter Summary ---
Author Organization [facility] Address [address] [place] [address] Care Team Providers Care Mechanical Engineering Technologist Name Role Phone Winston Villatoro OD Unavailable [phone] Denise Woodson APRN CROWN IRONER Unavailable [phone] Denise Woodson APRN CROWN IRONER Primary Care Provider Usha Simon APRN CROWN IRONER Unavailable [phone] Dangelo Salinas MD Unavailable Anastasia Stearns RN Unavailable [phone] Germaine Lopez [facility] Unavailable Joya Lira [facility] Unavailable Joya Lira [facility] Unavailable Fabi Coates MD Unavailable [phone] Danna CardenasC Unavailable [phone] Arthur Salas AURICULAR DETOXIFICATION SPECIALIST Unavailable [phone] Randy Maradiaga DO Unavailable + Encounter Details [...] Never 09/16/2024 How often do you attend tenriism or mu-ism serv ices? 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 Not on file Not on file Not on file Not on file Not on file Not on file documented as of this encounter Plan of Treatment Upcoming Encounters Date Type Department Care Team (Late st Contact Info) Description 09/25/2024 11:00 AM FABRICATION INSPECTOR Office Visit [facility] [address] [place] [phone] Denise Woodson APRN [facility] [address] [place] [address] 09/29/2024 9:00 AM FABRICATION INSPECTOR Virtual Visit [facility] Neurology Clinic [address] 3rd [place] [address] Randy Maradiaga, DO 909 [place] [address] 10/09/2024 1:20 PM FABRICATION INSPECTOR Office Visit [facility] Heart [facility] [place] [address] [facility] [address] [place] [phone] Danna Cardenas PA-C 6405 [place], [place] 22[address]85 10/15/2024 11:00 AM FABRICATION INSPECTOR Office Visit [facility] [address] [place] [address] Denise Woodson APRN CROWN IRONER [address] [place], [place] 8[address] 10/30/2024 4:00 PM FABRICATION INSPECTOR Virtual Visit [facility] Vascular Clinic [place] [address] [place] [phone] Lisa Zambrano MD [address] [place], [place] [address] 12/29/2024 12:45 PM CDT Office Visit [facility] [address] [place] [address] Ave [address] [phone] Fabi Coates MD [address] 1632[address] 12/29/2024 1:45 PM CDT Office Visit [facility] Pediatric Specialty Clinic [address] [place], [place] [address] Explorer [address] [phone] Fabi Coates MD [address] [address] 06/01/2025 11:15 AM CDT Appointment [facility] Imaging [address] [place] [phone] Robin Zepeda MD [address] [place] [address] 6[address] 06/04/2025 11:00 AM CDT Office Visit [facility] Neurosurgery Clinic [address] 3rd [place] [address] Robin Zepeda MD [address] [place] [phone] Usah Simon APRN CROWN IRONER [address] [place] [address] documented as of this encounter Goals Goal Patient Goal Type Associated Problems Recent Progress Patient-Stated? Author I would like additional resources and support to manage my health and prevent future avoidable ED visits/hospital admissions Care Plan Increased risk of re-admission 40%( 4 3:02 PM FABRICATION INSPECTOR) Anastasia Talamantes, RN Note: Barriers: diagnosis of multiple, chronic, complex medical conditions, provider availability - wait time to complete appointments, etc. Strengths: motivated, engaged in care coordination Patient expressed understanding of goal: yes Action steps to achieve this goal: 1. I will follow up with my providers as scheduled/recommended - Pulmonology: TBD - Mental Health weekly - PT, OT and MANAGER SPECIALTY, continuing through [facility] [place]: - PCP: 09/18/2024 & 10/15/2024. - Vascular [...] clinic with 24/7 after hours services available. Edge Stitcher will remain available as needed. documented as of this encounter Visit Diagnoses Not on filedocumented in this encounter Additional Health Concerns Active Problems Noted Date Diagnosed Date Increased risk of re-admission 02/18/2024 Assessment Noted Time PHQ-9 Depression Total Score: 0 09/18/19 12:46 PM FABRICATION INSPECTOR documented as of this encounter Care Teams Mechanical Engineering Technologist Relationship Specialty Start Date End Date Winston Villatoro OD [facility] [place] [address] [facility] [address] [place] [address] PCP - Ophthalmology Ophthalmology 02/11/13 Denise Woodson APRN CROWN IRONER [address] [place] [address] PCP - General Family Practice 09/21/20 Denise Woodson APRN CROWN IRONER [address] [place] [address] Assigned PCP 07/17/20 Usha Simon APRN CROWN IRONER 9 [facility] [id number] [address] Nurse Practitioner Neurological Surgery 01/24/24 Dangelo Salinas MD [address] [place] [address] Neurology 01/27/24 Anastasia Stearns, RN Lead Edge Stitcher 02/06/24 Germaine Lopez, [facility] Community Health Worker Primary Care - CC 02/18/24 Joya Lira [facility] [address] [place] [address] Pharmacist Pharmacist 05/25/24 Joya Lira [facility] [address] [place] [address] Assigned MTM Pharmacist 06/08/24 Fabi Coates MD [address] [place] [address] Genetics, Clinical 06/18/24 Danna Cardenas PA-C 6405 [place] [address] Assigned Heart and Vascular Provider 07/08/24 Arthur Salas LICSW [address] [address] Assigned Behavioral Health Provider 08/08/24 Randy Maradiaga DO [address] [place] [address] Assigned Neuroscience Provider 08/08/24 documented as of this encounter
--- OUTSIDE RECORDS SUMMARY | 2024-09-20 19:19 | XMS_ITS ---
Care Plan Created on: September 20, 2024 Alcon Zamora : 1975 Sex: Female Author Organization [place] Address [address] [place] [address] Care Team Providers Care Space Buyer Name Role Phone Winston Villatoro OD Unavailable [phone] Denise Woodson APRN SHEEP CLIPPER Unavailable [phone] Denise Woodson APRN SHEEP CLIPPER Primary Care Provider Usha Simon APRN SHEEP CLIPPER Unavailable Dangelo Salinas MD Unavailable Anastasia Stearns RN Unavailable Germaine Lopez [facility] Unavailable Joya Lira [facility] Unavailable Joya Lira [facility] Unavailable Fabi Coates MD Unavailable [phone] Danna CardenasC Unavailable [phone] Arthur Salas FRESH MEAT GRADER Unavailable [phone] Randy Maradiaga DO Unavailable + Active Problems [...] risk of re-admission 40%( 4 3:02 PM SOCIAL MEDIA MARKETING SPECIALIST) Anastasia Talamantes, RN Note: Barriers: diagnosis of multiple, chronic, complex medical conditions, provider availability - wait time to complete appointments, etc. Strengths: motivated, engaged in care coordination Patient expressed understanding of goal: yes Action steps to achieve this goal: 1. I will follow up with my providers as scheduled/recommended - Pulmonology: TBD - Mental Health weekly - PT, OT and SMOKING PIPE MAKER, continuing through [facility] [place]: - PCP: 09/18/2024 & 10/15/2024. - [...] clinic with 24/ after hours services available. [employer] Dean will remain available as needed. Interventions Care [...]
--- OUTSIDE RECORDS SUMMARY | 2024-09-20 19:19 | XMS_ITS | Encounter Summary ---
Author Organization [place] Address [address] [place] [address] Care Team Providers Care Online Affiliate Marketing Manager Name Role Phone Winston Villatoro OD Unavailable [phone] Denise Woodson APRN CHIEF SERVICE OBSERVER Unavailable [phone] Denise Woodson APRN CHIEF SERVICE OBSERVER Primary Care Provider Usha Simon APRN CHIEF SERVICE OBSERVER Unavailable [phone] Dangelo Salinas MD Unavailable Anastasia Stearns RN Unavailable Germaine Lopez [facility] Unavailable [phone] Joya Lira [facility] Unavailable [phone] Joya Lira [facility] Unavailable Fabi Coates MD Unavailable [phone] Danna CardenasC Unavailable [phone] Arthur Salas SENIOR TEST ANALYST Unavailable [phone] Randy Maradiaga DO Unavailable + Encounter Details [...] Never 09/16/2024 How often do you attend adventism or methodist serv ices? 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 Not on file Not on file Not on file Not on file Not on file Not on file documented as of this encounter Plan of Treatment Upcoming Encounters Date Type Department Care Team (Late st Contact Info) Description 09/25/2024 11:00 AM AUTO GLASS TECHNICIAN Office Visit [facility] [address] [place] [phone] Denise Woodson APRN [facility] [address] [place] [address] 09/29/2024 9:00 AM AUTO GLASS TECHNICIAN Virtual Visit [facility] [address] 3rd [place] [address] Randy Maradiaga, DO 909 [place] [address] 10/09/2024 1:20 PM AUTO GLASS TECHNICIAN Office Visit [facility] [place] [address] [facility] [address] [place] [phone] Danna Cardenas PA-C [address] [place], [place] [address] 10/15/2024 11:00 AM AUTO GLASS TECHNICIAN Office Visit [facility] [address] [place] [address] Denise Woodson APRN CHIEF SERVICE OBSERVER [address] [place], [place] [phone] 10/30/2024 4:00 PM AUTO GLASS TECHNICIAN Virtual Visit [facility] [place] [address] [place] [phone] Lisa Zambrano MD [address] [place], [place] [address] 12/29/2024 12:45 PM CDT Office Visit [facility] [address] [place] [address] Ave [address] [phone] Fabi Coates MD [address] [address] 12/29/2024 1:45 PM CDT Office Visit [facility] [address] [place], [place] [address]e [address] [phone] Fabi Coates MD [address] [address] 06/01/2025 11:15 AM CDT Appointment [facility] Imaging [address] [place] [place] [phone] Robin Zepeda MD [address] [place] [address] 3422[address] 06/04/2025 11:00 AM CDT Office Visit [facility] [address] 3rd [place] [phone] Robin Zepeda MD [address] [place] [phone] Usha Simon APRN CHIEF SERVICE OBSERVER [address] [place] [address] documented as of this encounter Goals Goal Patient Goal Type Associated Problems Recent Progress Patient-Stated? Author I would like additional resources and support to manage my health and prevent future avoidable ED visits/hospital admissions Care Plan Increased risk of re-admission 40%( 4 3:02 PM AUTO GLASS TECHNICIAN) Anastasia Talamantes, RN Note: Barriers: diagnosis of multiple, chronic, complex medical conditions, provider availability - wait time to complete appointments, etc. Strengths: motivated, engaged in care coordination Patient expressed understanding of goal: yes Action steps to achieve this goal: 1. I will follow up with my providers as scheduled/recommended - Pulmonology: TBD - Mental Health weekly - PT, OT and ART INSTRUCTOR, continuing through [facility] [place]: - PCP: 09/18/2024 & 10/15/2024. - Vascular [...] clinic with 24/7 after hours services available. Automatic Corn Grinder Operator will remain available as needed. documented as of this encounter Visit Diagnoses Not on filedocumented in this encounter Additional Health Concerns Active Problems Noted Date Diagnosed Date Increased risk of re-admission 02/18/2024 Assessment Noted Time PHQ-9 Depression Total Score: 5 08/03/20 24 12:49 PM AUTO GLASS TECHNICIAN documented as of this encounter Care Teams Online Affiliate Marketing Manager Relationship Specialty Start Date End Date Winston Villatoro OD [facility] [place] [address] [facility] [address] [place] [address] PCP - Ophthalmology Ophthalmology 02/11/13 Denise Woodson APRN CHIEF SERVICE OBSERVER [address] [place] [address] PCP - General Family Practice 09/21/20 Denise Woodson APRN CHIEF SERVICE OBSERVER [address] [place] [address] Assigned PCP 07/17/20 Usha Simon APRN CHIEF SERVICE OBSERVER [address] [facility] [place] [id number] [address] Nurse Practitioner Neurological Surgery 01/24/24 Dangelo Salinas MD [address] [place] [address] Neurology 01/27/24 Anastasia Stearns, RN Lead Automatic Corn Grinder Operator 02/06/24 Germaine Lopez, [facility] Community Health Worker Primary Care - CC 02/18/24 Joya Lira RPH [address] [address] Pharmacist Pharmacist 05/25/24 Joya Lira [facility] [address] [place] [address] Assigned MTM Pharmacist 06/08/24 Fabi Coates MD [address] [place] [address] Genetics, Clinical 06/18/24 Danna Cardenas PA-C [address] [place] [address] Assigned Heart and Vascular Provider 07/08/24 Arthur Salas LICSW [address] [address] Assigned Behavioral Health Provider 08/08/24 Randy Maradiaga DO [address] [place] [address] Assigned Neuroscience Provider 08/08/24 documented as of this encounter
--- OUTSIDE RECORDS SUMMARY | 2024-09-20 19:19 | XMS_ITS | Encounter Summary ---
Author Organization [place] Address [address] [place] [address] Care Team Providers Care Kiln Door Repairer Name Role Phone Winston Villatoro OD Unavailable [phone] Denise Woodson APRN MACHINE PRECISION ETCHER Unavailable [phone] Denise Woodson APRN MACHINE PRECISION ETCHER Primary Care Provider Usha Simon APRN MACHINE PRECISION ETCHER Unavailable + [phone] Dangelo Salinas MD Unavailable Anastasia Stearns RN Unavailable Germaine Lopez [facility] Unavailable Joya Lira [facility] Unavailable [phone] Joya Lira [facility] Unavailable Fabi Coates MD Unavailable [phone] Danna Cardenas PA-C Unavailable [phone] Arthur Salas RESIDENT ATHLETIC TRAINER Unavailable [phone] Randy Maradiaga DO Unavailable + Encounter Details Date Type Department Care Team (Late st Contact Info) Description 09/14/2024 [facility] Medical [facility] [address] [place] [address] Denise Woodson APRN MACHINE PRECISION ETCHER [address] [place] [address] Social History Tobacco Use Types Packs/Day Years [...] How often do you attend methodist or episcopalian serv ices? Never 02/28/2024 Do [...] Answer Date Recorded PHQ-2 Score 2 08/04/2024 [facility] of Occupat ional [...] on file Legal Sex 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 STORE GIFT WRAP ASSOCIATE Gender Identity Not on file Sexual [...] discussed at upcoming visit. Tay Garnica MD [facility] 09/14/2024 E GIFT WRAP ASSOCIATE * Telephone Encounter - Aliya Mcguire RN - 09/14/2024 11:32 AM CST Pt has pending appointment with Saturday with PCP but is asking about pulm referral in the meantime so she can try to get an appointment scheduled. Will route to PCP to inquire if appropriate to place referral now. Aliya Mcguire RN on 09/14/2024 at 11:33 AM E GIFT WRAP ASSOCIATE documented in this encounter Plan of Treatment Upcoming Encounters Date Type Department Care Team (Late st Contact Info) Description 09/25/2024 11:00 AM STORE GIFT WRAP ASSOCIATE Office Visit [facility] [address] [place] [phone] Denise Woodson, [facility] [address] [place], [place] [phone] 09/29/2024 9:00 AM STORE GIFT WRAP ASSOCIATE Virtual Visit [facility] Neurology Clinic [address] [phone] Randy Maradiaga, [address] [address] 10/09/2024 1:20 PM STORE GIFT WRAP ASSOCIATE Office Visit [facility] [address] [facility] [address] [place] [phone] Danna Cardenas PA-C 6405 [place], [place] [address] 10/15/2024 11:00 AM STORE GIFT WRAP ASSOCIATE Office Visit [facility] [address] [place] [phone] Denise Woodson, ASSEMBLER TRUCK TRAILER MACHINE PRECISION ETCHER [address] [place] [address] 10/30/2024 4:00 PM STORE GIFT WRAP ASSOCIATE Virtual Visit [facility] [place] [address] [place] [phone] Lisa Zambrano MD [address] [place] [address] 12/29/2024 12:45 PM CDT Office Visit [facility] [address] [place], [place] [address]e Explorer [address] [phone] Fabi Coates MD [address] [place] [address] 12/29/2024 1:45 PM CDT Office Visit [facility] [address] [place], [place] [address] [address] [phone] Fabi Coates MD [address] [place] [address] 06/01/2025 11:15 AM CDT Appointment [facility] Specialty Care Center Imaging [address] [facility] [address] [place] [phone] Robin Zepeda MD [address] [place] [address] 06/04/2025 11:00 AM CDT Office Visit [facility] Neurosurgery [address] 3rd [place] [phone] Robin Zepeda MD [address] [place] [address] Usha Simon APRN [facility] [address] [facility] [id number] [address] documented as of this encounter Goals Goal Patient Goal Type Associated Problems Recent Progress Patient-Stated? Author I would like additional resources and support to manage my health and prevent future avoidable ED visits/hospital admissions Care Plan Increased risk of re-admission 40%( 3:02 PM STORE GIFT WRAP ASSOCIATE) No Anastasia Stearns, RN Note: Barriers: diagnosis of multiple, chronic, complex medical conditions, provider availability - wait time to complete appointments, etc. Strengths: motivated, engaged in care coordination Patient expressed understanding of goal: yes Action steps to achieve this goal: 1. I will follow up with my providers as scheduled/recommended - Pulmonology: TBD - Mental Health weekly - PT, OT and STEEL ROD BUSTER, continuing through [facility] [place]: - PCP: 09/18/2024 & 10/15/2024. - Vascular [...] clinic with 24/7 after hours services available. Divinity Teacher will remain available as needed. documented as of this encounter Visit Diagnoses Not on filedocumented in this encounter Additional Health Concerns Active Problems Noted Date Diagnosed Date Increased risk of re-admission 02/18/2024 Assessment Noted Time PHQ-9 Depression Total Score: 5 08/03/20 24 12:49 PM STORE GIFT WRAP ASSOCIATE documented as of this encounter Care Teams Kiln Door Repairer Relationship Specialty Start Date End Date Winston Villatoro, OD [facility] [place] [address] [place] [address] PCP - Ophthalmology Ophthalmology 02/11/13 Denise Woodson APRN MACHINE PRECISION ETCHER [address] [place] [address] PCP - General Family Practice 09/21/20 Denise Woodson APRN MACHINE PRECISION ETCHER [address] [place] [address] Assigned PCP 07/17/20 Usha Simon APRN MACHINE PRECISION ETCHER [address] [place] [address], [place] [address] Nurse Practitioner Neurological Surgery 01/24/24 Dangelo Salinas MD [address] [place], [place] [phone] Neurology 01/27/24 Anastasia Stearns, RN Lead Divinity Teacher 02/06/24 Germaine Lopez, W Community Health Worker Primary Care - CC 02/18/24 Joya Lira RPH [address] [place] [address] Pharmacist Pharmacist 05/25/24 Joya Lira RPH [address] [place] [address] Assigned MTM Pharmacist 06/08/24 Fabi Coates MD [address] [place] [address] 75 [place] [address] Genetics, Clinical 06/18/24 Danna Cardenas PA-C [address] [place] [address] Assigned Heart and Vascular Provider 07/08/24 Arthur Salas [facility] [address] [address] Assigned Behavioral Health Provider 08/08/24 Randy Maradiaga DO 9 [place] [address] Assigned Neuroscience Provider 08/08/24 documented as of this encounter
--- OUTSIDE RECORDS SUMMARY | 2024-09-20 19:20 | XMS_ITS | Encounter Summary ---
Author Organization [place] Address [address] [place] [address] Care Team Providers Care Rn Bariatric Name Role Phone Winston Villatoro OD Unavailable [phone] Denise Woodson APRN HOME HEALTH LPN Unavailable [phone] Denise Woodson APRN HOME HEALTH LPN Primary Care Provider Usha Simon APRN HOME HEALTH LPN Unavailable [phone] Dangelo Salinas MD Unavailable nAastasia Stearns RN Unavailable [phone] Germaine Lopez [facility] Unavailable [phone] Joya Lira [facility] Unavailable Joya Lira [facility] Unavailable Fabi Coates MD Unavailable [phone] Danna CardenasC Unavailable [phone] Arthur Salas SUIT MAKER Unavailable [phone] Randy Maradiaga DO Unavailable + Encounter Details [...] How often do you attend sikhism or jewish serv ices? 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 Not on file Not on file Not on file Not on file Not on file Not on file documented as of this encounter Plan of Treatment Upcoming Encounters Date Type Department Care Team (Late st Contact Info) Description 09/25/2024 11:00 AM ACOUSTICAL LOGGING ENGINEER Office Visit [facility] [address] [place] [phone] Denise Woodson APRN [facility] [address] [place] [address] 09/29/2024 9:00 AM ACOUSTICAL LOGGING ENGINEER Virtual Visit [facility] Neurology [address] 3rd [place] [address] Randy Maradiaga, DO 909 [place] [address] 10/09/2024 1:20 PM ACOUSTICAL LOGGING ENGINEER Office Visit [facility] Heart Clinic [place] [address] [facility] [address] [place] [phone] Danna Cardenas PA-C 6[address] [place], [place] [address] 10/15/2024 11:00 AM ACOUSTICAL LOGGING ENGINEER Office Visit [facility] [address] [place] [address] Denise Woodson APRN HOME HEALTH LPN [address] [place], [place] 5[address] 10/30/2024 4:00 PM ACOUSTICAL LOGGING ENGINEER Virtual Visit [facility] Vascular Clinic [place] [address] [place] [address] Lisa Zambrano MD [address] [place], [place] [address] 12/29/2024 12:45 PM CDT Office Visit [facility] [address] [place] [address] Ave Explorer [address] [phone] Fabi Coates MD [address] [address] 12/29/2024 1:45 PM CDT Office Visit [facility] Pediatric Specialty Clinic [address] [place], [place] [address]e Explorer [address] [phone] Fabi Coates MD [address] 9335[address] 06/01/2025 11:15 AM CDT Appointment [facility] Care [facility] Imaging [address] [place] [address] Robin Zepeda MD [address] [place] [address] 06/04/2025 11:00 AM CDT Office Visit [facility] Neurosurgery Clinic [address] 3rd [place] [phone] Robin Zepeda MD [address] [place] [id number] Usha Simon APRN HOME HEALTH LPN [address] [place] [address] 507415 documented as of this encounter Goals Goal Patient Goal Type Associated Problems Recent Progress Patient-Stated? Author I would like additional resources and support to manage my health and prevent future avoidable ED visits/hospital admissions Care Plan Increased risk of re-admission 40%( 4 3:02 PM ACOUSTICAL LOGGING ENGINEER) Anastasia Talamantes, RN Note: Barriers: diagnosis of multiple, chronic, complex medical conditions, provider availability - wait time to complete appointments, etc. Strengths: motivated, engaged in care coordination Patient expressed understanding of goal: yes Action steps to achieve this goal: 1. I will follow up with my providers as scheduled/recommended - Pulmonology: TBD - Mental Health weekly - PT, OT and CURATOR OF MANUSCRIPTS, continuing through [facility] [place]: - PCP: 09/18/2024 & 10/15/2024. - Vascular [...] with 24/7 after hours services available. Applications Programmer will remain available as needed. documented as of this encounter Visit Diagnoses Not on filedocumented in this encounter Additional Health Concerns Active Problems Noted Date Diagnosed Date Increased risk of re-admission 02/18/2024 Assessment Noted Time PHQ-9 Depression Total Score: 5 08/03/20 24 12:49 PM ACOUSTICAL LOGGING ENGINEER documented as of this encounter Care Teams Rn Bariatric Relationship Specialty Start Date End Date Winston Villatoro OD [facility] [place] [address] [facility] [address] [place] [address] PCP - Ophthalmology Ophthalmology 02/11/13 Denise Woodson APRN HOME HEALTH LPN [address] [place] [address] PCP - General Family Practice 09/21/20 Denise Woodson APRN HOME HEALTH LPN [address] [place] [address] Assigned PCP 07/17/20 Usha Simon APRN HOME HEALTH LPN 9 [facility] [id number] [place] [address] Nurse Practitioner Neurological Surgery 01/24/24 Dangelo Salinas MD [address] [place] [address] Neurology 01/27/24 Anastasia Stearns, RN Lead Applications Programmer 02/06/24 Germaine Lopez, [facility] Community Health Worker Primary Care - CC 02/18/24 Joya Lira RPH [address] [place] [address] Pharmacist Pharmacist 05/25/24 Joya Lira [facility] [address] [place] [address] Assigned MTM Pharmacist 06/08/24 Fabi Coates MD [address] [place] [address] Genetics, Clinical 06/18/24 Danna Cardenas PA-C 6[address] [place] [address] Assigned Heart and Vascular Provider 07/08/24 Arthur Salas LICSW [address] [address] Assigned Behavioral Health Provider 08/08/24 Randy Maradiaga DO [address] [place] [address] Assigned Neuroscience Provider 08/08/24 documented as of this encounter
--- OUTSIDE RECORDS SUMMARY | 2024-09-20 19:20 | XMS_ITS | Encounter Summary ---
Author Organization [facility] Address [address] [place] [address] Care Team Providers Care Space And Missile Operations Spacelift Name Role Phone Winston Villatoro OD Unavailable [phone] Denise Woodson APRN ROUTE SALESMAN AND DRIVER Unavailable [phone] Denise Woodson APRN ROUTE SALESMAN AND DRIVER Primary Care Provider Usha Simon APRN ROUTE SALESMAN AND DRIVER Unavailable [phone] Dangelo Salinas MD Unavailable Anastasia Stearns RN Unavailable Germaine Lopez [facility] Unavailable Joya Lira [facility] Unavailable Joya Lira [facility] Unavailable [phone] Fabi Coates MD Unavailable [phone] Danna CardenasC Unavailable [phone] Arthur Salas LOWERATOR OPERATOR Unavailable [phone] Randy Maradiaga DO Unavailable + Encounter Details [...] often do you attend oriental orthodox or hindu serv ices? 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 Not on file Not on file Not on file Not on file Not on file Not on file documented as of this encounter Plan of Treatment Upcoming Encounters Date Type Department Care Team (Late st Contact Info) Description 09/25/2024 11:00 AM EMT PARAMEDIC Office Visit [facility] [address] [place] [phone] Denise Woodson APRN [facility] [address] [place] [address] 09/29/2024 9:00 AM EMT PARAMEDIC Virtual Visit [facility] Neurology [address] 3rd [place] [address] Randy Maradiaga, DO 909 [place] [address] 10/09/2024 1:20 PM EMT PARAMEDIC Office Visit [facility] [place] [address] [facility] [address] [place] [phone] Danna Cardenas PA-C 6405 [place], [place] 8[address] 10/15/2024 11:00 AM EMT PARAMEDIC Office Visit [facility] [address] [place] [address] Denise Woodson APRN ROUTE SALESMAN AND DRIVER [address] [place], [place] 1446768 10/30/2024 4:00 PM EMT PARAMEDIC Virtual Visit [facility] [place] [address] [place] [phone] Lisa Zambrano MD [address] [place], [place] [address] 12/29/2024 12:45 PM CDT Office Visit [facility] [address] [place] [address] Ave [address] [phone] Fabi Coates MD [address] [address] 12/29/2024 1:45 PM CDT Office [facility] [address] [place], [place] [address]e Explorer [address] [phone] Fabi Coates MD [address] 674175 06/01/2025 11:15 AM CDT Appointment [facility] [address] [place] [phone] Robin Zepeda MD [address] [place] [address] 636715 06/04/2025 11:00 AM CDT Office [facility] [address] 3rd [place] [phone] Robin Zepeda MD [address] [place] [phone] Usha Simon APRN ROUTE SALESMAN AND DRIVER [address] [place] [address] 287135 documented as of this encounter Goals Goal Patient Goal Type Associated Problems Recent Progress Patient-Stated? Author I would like additional resources and support to manage my health and prevent future avoidable ED visits/hospital admissions Care Plan Increased risk of re-admission 40%( 4 3:02 PM EMT PARAMEDIC) Anastasia Talamantes, RN Note: Barriers: diagnosis of multiple, chronic, complex medical conditions, provider availability - wait time to complete appointments, etc. Strengths: motivated, engaged in care coordination Patient expressed understanding of goal: yes Action steps to achieve this goal: 1. I will follow up with my providers as scheduled/recommended - Pulmonology: TBD - Mental Health weekly - PT, OT and OUTSOLE CUTTER MACHINE, continuing through [facility]: - PCP: 09/18/2024 & 10/15/2024. - Vascular [...] clinic with 24/7 after hours services available. Band Salvager will remain available as needed. documented as of this encounter Visit Diagnoses Not on filedocumented in this encounter Additional Health Concerns Active Problems Noted Date Diagnosed Date Increased risk of re-admission 02/18/2024 Assessment Noted Time PHQ-9 Depression Total Score: 5 08/03/20 24 12:49 PM EMT PARAMEDIC documented as of this encounter Care Teams Space And Missile Operations Spacelift Relationship Specialty Start Date End Date Winston Villatoro OD [facility] [place] [address] [facility] [address] [place] [address] PCP - Ophthalmology Ophthalmology 02/11/13 Denise Woodson APRN ROUTE SALESMAN AND DRIVER [address] [place] [address] PCP - General Family Practice 09/21/20 Denise Woodson APRN ROUTE SALESMAN AND DRIVER [address] [place] [address] Assigned PCP 07/17/20 Usha Simon APRN ROUTE SALESMAN AND DRIVER [address] [facility] [id number] [address] Nurse Practitioner Neurological Surgery 01/24/24 Dangelo Salinas MD [address] [place] [address] Neurology 01/27/24 Anastasia Stearns, RN Lead Band Salvager 02/06/24 Germaine Lopez, [facility] Community Health Worker Primary Care - CC 02/18/24 Joya Lira RPH [address] [address] Pharmacist Pharmacist 05/25/24 Joya Lira [facility] [address] [place] [address] Assigned MTM Pharmacist 06/08/24 Fabi Coates MD [address] [place] [address] Genetics, Clinical 06/18/24 Danna Cardenas PA-C [address] [place] [address] Assigned Heart and Vascular Provider 07/08/24 Arthur Salas LICSW [address] [address] Assigned Behavioral Health Provider 08/08/24 Randy Maradiaga DO [address] [place] [address] Assigned Neuroscience Provider 08/08/24 documented as of this encounter
--- OUTSIDE RECORDS SUMMARY | 2024-09-20 19:20 | XMS_ITS | Encounter Summary ---
Author Organization [facility] Address [address] [place] [address] Care Team Providers Care Meat Cutting Block Repairer Name Role Phone Winston Villatoro OD Unavailable [phone] Denise Woodson APRN DISCHARGE PLANNER Unavailable [phone] Denise Woodson APRN DISCHARGE PLANNER Primary Care Provider Usha Simon APRN DISCHARGE PLANNER Unavailable [phone] Dangelo Salinas MD Unavailable Anastasia Stearns RN Unavailable [phone] Germaine Lopez [facility] Unavailable Joya Lira [facility] Unavailable Joya Lira [facility] Unavailable [phone] Fabi Coates MD Unavailable [phone] Danna CardenasC Unavailable [phone] Arthur Salas MANAGER BODY Unavailable [phone] Randy Maradiaga DO Unavailable + Encounter Details [...] Answer Date Recorded PHQ-2 Score 2 08/04/2024 [facility] Occupat ional [...] file Legal Sex 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 FRONT OFFICE ATTENDANT Gender Identity Not on file Sexual Orientation Not on file 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 Neurology [address] 3rd [place] [address] Randy Maradiaga, DO 909 [place] [address] 10/09/2024 1:20 PM FRONT OFFICE ATTENDANT Office [facility] [place] [address] [facility] [address] [place] [phone] Danna Cardenas PA-C 6405 [place], [place] [address]275 10/15/2024 11:00 AM FRONT OFFICE ATTENDANT Office Visit [facility] [address] [place] [address] Denise Woodson APRN DISCHARGE PLANNER [address] [place], [place] [phone] 10/30/2024 4:00 PM FRONT OFFICE ATTENDANT Virtual Visit [facility] V[facility] [place] [address] [place] [phone] Lisa Zambrano MD [address] [place], [place] 4584[address] 12/29/2024 12:45 PM CDT Office Visit [facility] [address] [place] [address] Ave [address] [phone] Fabi Coates MD [address] 5869[address] 12/29/2024 1:45 PM CDT Office Visit [facility] Pediatric [facility]ty Clinic [address] [place], [place] [address]e Explorer [address] [phone] Fabi Coates MD [address] [address] 06/01/2025 11:15 AM CDT Appointment [facility] Imaging [address] [place] [phone] Robin Zepeda MD [address] [place] [address] 5519[address] 06/04/2025 11:00 AM CDT Office Visit [facility] Neurosurgery Clinic [address] 3rd [place] [phone] Robin Zepeda MD [address] [place] [address] [phone] Usha Simon APRN DISCHARGE PLANNER [address] [place] [address] 597975 documented as of this encounter Goals Goal Patient Goal Type Associated Problems Recent Progress Patient-Stated? Author I would like additional resources and support to manage my health and prevent future avoidable ED visits/hospital admissions Care Plan Increased risk of re-admission 40%( 4 3:02 PM FRONT OFFICE ATTENDANT) Anastasia Talamantes, RN Note: Barriers: diagnosis of multiple, chronic, complex medical conditions, provider availability - wait time to complete appointments, etc. Strengths: motivated, engaged in care coordination Patient expressed understanding of goal: yes Action steps to achieve this goal: 1. I will follow up with my providers as scheduled/recommended - Pulmonology: TBD - Mental Health weekly - PT, OT and WRECKING SUPERVISOR, continuing through [facility]: - PCP: 09/18/2024 & 10/15/2024. - Vascular [...] clinic with 24/7 after hours services available. Dispatcher Automobile Rental will remain available as needed. documented as of this encounter Visit Diagnoses Not on filedocumented in this encounter Additional Health Concerns Active Problems Noted Date Diagnosed Date Increased risk of re-admission 02/18/2024 Assessment Noted Time PHQ-9 Depression Total Score: 5 08/03/20 24 12:49 PM FRONT OFFICE ATTENDANT documented as of this encounter Care Teams Meat Cutting Block Repairer Relationship Specialty Start Date End Date Winston Villatoro OD [facility] [place] 701 [facility] [address] [place] [address] PCP - Ophthalmology Ophthalmology 02/11/13 Denise Woodson APRN DISCHARGE PLANNER [address] [place] [address] PCP - General Family Practice 09/21/20 Denise Woodson APRN DISCHARGE PLANNER [address] [place] [address] Assigned PCP 07/17/20 Usha Simon APRN DISCHARGE PLANNER 9 [facility] [id number] [place] [address] Nurse Practitioner Neurological Surgery 01/24/24 Dangelo Salinas MD [address] [place] [address] Neurology 01/27/24 Anastasia Stearns, RN Lead Dispatcher Automobile Rental 02/06/24 Germaine Lopez, [facility] Community Health Worker Primary Care - CC 02/18/24 Joya Lira RPH [address] [place] [address] Pharmacist Pharmacist 05/25/24 Joya Lira [facility] [address] [place] [address] Assigned MTM Pharmacist 06/08/24 Fabi Coates MD [address] [place] [address] Genetics, Clinical 06/18/24 Danna Cardenas PA-C 6405 [place] [address] Assigned Heart and Vascular Provider 07/08/24 Arthur Salas LICSW [address] [address] Assigned Behavioral Health Provider 08/08/24 Randy Maradiaga DO [address] [place] [address] Assigned Neuroscience Provider 08/08/24 documented as of this encounter
--- OUTSIDE RECORDS SUMMARY | 2024-09-20 19:20 | XMS_ITS | Encounter Summary ---
Author Organization [facility] Address [address] [place] [address] Care Team Providers Care Electrical Test Engineer Name Role Phone Winston Villatoro OD Unavailable [phone] Denise Woodson APRN CREEL SELECTOR Unavailable [phone] Denise Woodson APRN CREEL SELECTOR Primary Care Provider Usha Simon APRN CREEL SELECTOR Unavailable [phone] Dangelo Salinas MD Unavailable Anastasia Stearns RN Unavailable Germaine Lopez [facility] Unavailable [phone] Joya Lira [facility] Unavailable [phone] Joya Lira [facility] Unavailable [phone] Fabi Coates MD Unavailable [phone] Danna CardenasC Unavailable [phone] Arthur Salas SKEIN YARN DYER HELPER Unavailable [phone] Randy Maradiaga DO Unavailable + Reason for Visit * (Routine) - Authorized Specialty Diagnoses / Procedures Referred By Contac t Referred To Contact Procedures Neuropsych Testing Referral ID Status Reason Start Date Expiration Date V isits Requested Visits Authorized [id number] Authorized 08/06/2024 08/06/2025 3 3 Encounter Details Date Type Department Care Team (Latest Contact Info) Description 08/17/2024 12:30 PM CAR DESIGNER Office Visit [facility] Neuropsychology [address] 3rd [place] [address] Robin Zepeda MD 9 [facility] [id number] [place], [place] [address] Tulio Ogden, PhD [address] [address] Other specified mental disorders due to known [...] How often do you attend baptist or tenriism serv ices? 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 Records [...] assist with treatment planning. Testing was completed [id number]. 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: Loads box printer and folds laundry independently; reports minimal engagement in inbound sales manager due to fatigue; has not resumed cooking due to difficulty remembering and following recipes Finances: Manages independently; utilizes autopay features; reported not checking on finances as frequently as she used to but denied ongoing concerns with financial sales advisor Medications: Manages independently with no noted concerns [...] not walk until after 3 years old [place] Language: Bulgarian Education: Described herself as a gifted student [...] formally diagnosed 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 Interval history: - Presented to [place] ED 07/12/ with right hand/foot paresthesias, nausea, [...] for the Psychiatry serviceis provided below: Psychiatry [email or web address] or [phone] The patient expressed that she will be [...] L.P., ABPP Board Certified in Clinical Neuropsychology Driver Education Road Instructor / Licensed Psychologist [id number] All billing noted here is for professional services provided by the psychologist and traffic operations manager. Time spent: One unit psychiatric diagnostic interview including interview and clinical assessment by licensed and board-certified neuropsychologist (CPT 93687). One unit (60 minutes) neuropsychological testing evaluation by licensed and board-certified neuropsychologist, including integration of patient data, interpretation of standardized test results and clinical data, clinical decision-making,treatment planning, and report, first hour (CPT 98584). Two unit(s) (95 minutes) of neuropsychological testing evaluation by licensed and board-certified neuropsychologist, including integration of patient data, interpretation of standardized test results and clinical data, clinical decision-making, treatment planning, supervision of fellow, and report, subsequent hours (CPT 94794). One unit (30 minutes) of psychological and neuropsychological test administration and scoring by ophthalmic medical technician, first 30 minutes (CPT 57378). Five units (155 minutes) psychological or neuropsychological test administration and scoring by ophthalmic medical technician, subsequent 30 minutes (CPT 05374). Diagnoses: F06.8, I67.1, I63.9 DESIGNER documented in this encounter Nursing Notes * Rubens Leach MA - 08/17/2024 12:30 PM CST The patient was seen for neuropsychological evaluation at the request of Dr. Robin Zepeda, for the purposes of diagnostic clarification and treatment planning. 185 minutes of test administration and scoring were provided by this bond writer, Rubens Leach. Please see Dr. Tulio Ogedn's report for a full interpretation of the findings. DESIGNER documented in this encounter Plan of Treatment Upcoming Encounters Date Type Department Care Team (Late st Contact Info) Description 09/25/2024 11:00 AM CAR DESIGNER Office Visit [facility] [address] [place] [phone] Denise Woodson APRN CREEL SELECTOR [address] [place], [place] [phone] 09/29/2024 9:00 AM CAR DESIGNER Virtual Visit [facility] Neurology Clinic [address] [phone] Randy Maradiaga, [address] [phone] 10/09/2024 1:20 PM CAR DESIGNER Office Visit [facility] Heart [address] [place] [address] Danna Cardenas PA-C 6405 [place] [address] 10/15/2024 11:00 AM CAR DESIGNER [facility] [address] [place] [phone] Denise Woodson APRN CREEL SELECTOR [address] [place], [place] 6[address]34[address] 10/30/2024 4:00 PM CAR DESIGNER Virtual Visit [facility] Vascular Clinic [place] [address] [place] [phone] Lisa Zambrano MD [address] [place] [address] 12/29/2024 12:45 PM CDT Office Visit [facility] [address] [place] [address] Ave [address] [phone] Fabi Coates MD [address] [place] [address]04795 12/29/2024 1:45 PM CDT Office Visit [facility] [address] [place] [address] Ave Explorer [address] [phone] Fabi Coates MD [address] [place] [address] 06/01/2025 11:[address] [facility] [place] [facility] [address] [facility] [address] [place] [phone] Robin Zepeda MD [address] [place] [address] 915935 06/04/2025 11:00 AM CDT Office Visit [facility] Neurosurgery Clinic [address] 3rd [place] [phone] Robin Zepeda MD [address] [place] [address] [phone] Usha Simon APRN [address] 980465 documented as of this encounter Goals Goal Patient Goal Type Associated Problems Recent Progress Patient-Stated? Author I would like additional resources and support to manage my health and prevent future avoidable ED visits/hospital admissions Care Plan Increased risk of re-admission 40%( 4 3:02 PM CAR DESIGNER) Anastasia Talamantes RN Note: Barriers: diagnosis of multiple, chronic, complex medical conditions, provider availability - wait time to complete appointments, etc. Strengths: motivated, engaged in care coordination Patient expressed understanding of goal: yes Action steps to achieve this goal: 1. I will follow up with my providers as scheduled/recommended - Pulmonology: TBD - Mental Health weekly - PT, OT and FLY MAKER, continuing through [facility] [place]: - PCP: 09/18/2024 & 10/15/2024. 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 Cerebral infarction, unspecified mechanism (H) [facility] NEUROPSYCHOLOGICAL TST EVAL PHYS/QHP EA ADDL HR Routine 08/19/2024 4:15 PM CAR DESIGNER 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 Cerebral infarction, unspecified mechanism (H) [facility] NEUROPSYCHOLOGICAL TST EVAL PHYS/QHP 1ST HOUR Routine 08/19/2024 4:15 PM CAR DESIGNER Other specified mental disorders due to known [...] Total Score: 5 08/03/20 24 12:49 PM CAR DESIGNER documented as of this encounter Care Teams Electrical Test Engineer Relationship Specialty Start Date End Date Winston Villatoro OD [facility] [place] [address] [place] [address] PCP - Ophthalmology Ophthalmology 02/11/13 Denise Woodson APRN CREEL SELECTOR [address] [place] [address] PCP - General Family Practice 09/21/20 Denise Woodson APRN CREEL SELECTOR [address] [place] [address] Assigned PCP 07/17/20 Usha Simon APRN CREEL SELECTOR 9[address] [facility] [place] [id number] [address] Nurse Practitioner Neurological Surgery 01/24/24 Dangelo Salinas MD [address] [place] [address] Neurology 01/27/24 Anastasia Stearns, RN Lead Emergency Communications Dispatcher 02/06/24 Germaine Lopez, [facility] Community Health Worker Primary Care - CC 02/18/24 Joya Lira RPH [address] [place] [address] Pharmacist Pharmacist 05/25/24 Joya Lira [place] [address] [place] [address] Assigned MTM Pharmacist 06/08/24 Fabi Coates MD [address] [place] [address] 75 [place] [address] Genetics, Clinical 06/18/24 Danna Cardenas PA-C [facility] [place] [address] Assigned Heart and Vascular Provider 07/08/24 Arthur Salas LICSW [address] [address] Assigned Behavioral Health Provider 08/08/24 Randy Maradiaga DO [address] [place] [address] Assigned Neuroscience Provider 08/08/24 documented as of this encounter
--- OUTSIDE RECORDS SUMMARY | 2024-09-20 19:20 | XMS_ITS | Encounter Summary ---
Author Organization [place] Address [address] [place] [address] Care Team Providers Care Remote Control Assembler Name Role Phone Winston Villatoro OD Unavailable [phone] Denise Woodson APRN CQ DEVELOPER Unavailable [phone] Denise Woodson APRN CQ DEVELOPER Primary Care Provider Usha Simon APRN CQ DEVELOPER Unavailable [phone] Dangelo Salinas MD Unavailable Anastasia Stearns RN Unavailable Germaine Lopez [facility] Unavailable [phone] Joya Lira [facility] Unavailable [phone] Joya Lira [facility] Unavailable Fabi Coates MD Unavailable [phone] Danna CardenasC Unavailable [phone] Arthur Salas INTELLIGENCE DIRECTOR Unavailable [phone] Randy Maradiaga DO Unavailable + Encounter Details Date Type Department Care Team (Late st Contact Info) Description 08/14/2024 Ajay Bowden [facility] Neurology [address] 3rd [place] [address] Randy Maradiaga DO [address] [place] [address] Social History Tobacco Use Types Packs/Day Years [...] How often do you attend adventist or quaker serv ices? 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 Not on file Not on file Not on file Not on file Not on file Not on file Not on file documented as of this encounter Plan of Treatment Upcoming Encounters Date Type Department Care Team (Late st Contact Info) Description 09/25/2024 11:00 AM HOSPITALITY INTERN Office Visit [facility] [address] [place] [address] Denise Woodson APRN [facility] [address] [place] [address] 09/29/2024 9:00 AM HOSPITALITY INTERN Virtual Visit [facility] [place] [address] [facility] [address] 3rd [place] [phone] Randy Maradiaga, DO [address] [place] [address] 10/09/2024 1:20 PM HOSPITALITY INTERN Office Visit [facility] Heart [facility] [address] [facility] [address] [place] [phone] Danna Cardenas PA-C 6405 [place] [address] 10/15/2024 11:00 AM HOSPITALITY INTERN Office Visit [facility] [address] [place] [address] Denise oWodson, [employer] SPECIALIST CQ DEVELOPER [address] [place], [place] [phone] 10/30/2024 4:00 PM HOSPITALITY INTERN Virtual Visit [facility] [place] [address] [place] [address] Lisa Zambrano MD [address] [place] [address] 12/29/2024 12:45 PM CDT Office Visit [facility] [address] [facility] [address],[place] [address] Fabi Coates MD 420 [facility] 75 [place], [place] [address] 12/29/2024 1:45 PM CDT [facility] 2450 [facility] Explorer [facility] 12th Flr,[place] [address] Fabi Coates MD [address] [facility] 75 [place] [address] 06/01/2025 11:15 AM CDT Appointment [facility] Imaging [address] [place] [place] [phone] Robin Zepeda MD [address] [place] [address] 2928[address] 06/04/2025 11:00 AM CDT Office Visit [facility] [address] 3rd [place] [address] Robin Zepeda MD [address] [place] [address] Usha Simon APRN [address] [id number] documented as of this encounter Goals Goal Patient Goal Type Associated Problems Recent Progress Patient-Stated? Author I would like additional resources and support to manage my health and prevent future avoidable ED visits/hospital admissions Care Plan Increased risk of re-admission 40%( 4 3:02 PM HOSPITALITY INTERN) Anastasia Talamantes, RN Note: Barriers: diagnosis of multiple, chronic, complex medical conditions, provider availability - wait time to complete appointments, etc. Strengths: motivated, engaged in care coordination Patient expressed understanding of goal: yes Action steps to achieve this goal: 1. I will follow up with my providers as scheduled/recommended - Pulmonology: TBD - Mental Health weekly - PT, OT and SALES SERVICE COORDINATOR, continuing through [facility] [place]: - PCP: 09/18/2024 & 10/15/2024. - Vascular [...] with 24/7 after hours services available. Senior Cytogenetics Laboratory Director will remain available as needed. documented as of this encounter Visit Diagnoses Not on filedocumented in this encounter Additional Health Concerns Active Problems Noted Date Diagnosed Date Increased risk of re-admission 02/18/2024 Infection Onset Date Last Indicated Resolved Time Rule Out COVID-19 09/13/2024 09/13/2024 09/13/2024 12:31 PM HOSPITALITY INTERN Assessment Noted Time PHQ-9 Depression Total Score: 5 08/03/20 24 12:49 PM HOSPITALITY INTERN documented as of this encounter Care Teams Remote Control Assembler Relationship Specialty Start Date End Date Winston Villatoro OD [facility] [address] [facility] [address] [place], [place] [phone] PCP - Ophthalmology Ophthalmology 02/11/13 Denise Woodson APRN CQ DEVELOPER [address] [place] [address] PCP - General Family Practice 09/21/20 Denise Woodson APRN CQ DEVELOPER [address] [place] [address] Assigned PCP 07/17/20 Usha Simon APRN CQ DEVELOPER 9 [facility] [address] Nurse Practitioner Neurological Surgery 01/24/24 Dangelo Salinas MD [address] [address] Neurology 01/27/24 Anastasia Stearns, RN Lead Senior Cytogenetics Laboratory Director 02/06/24 Germaine Lopez, W Community Health Worker Primary Care - CC 02/18/24 Joya Lira RPH [address] [address] Pharmacist Pharmacist 05/25/24 Joya Lira RPH [address] [place] [address] Assigned MTM Pharmacist 06/08/24 Fabi Coates MD [address] [place] [address] 75 [place], [place] 577[address] Genetics, Clinical 06/18/24 Danna Cardenas PA-C [address] [place] [address] Assigned Heart and Vascular Provider 07/08/24 Arthur Salas INTELLIGENCE DIRECTOR [address] [place] [address] Assigned Behavioral Health Provider 08/08/24 Randy Maradiaga DO 909 [place] [address] Assigned Neuroscience Provider 08/08/24 documented as of this encounter
--- OUTSIDE RECORDS SUMMARY | 2024-09-20 19:20 | XMS_ITS | Encounter Summary ---
Author Organization [place] Address [address] [place] [address] Care Team Providers Care Acid Tender Name Role Phone Winston Villatoro OD Unavailable [phone] Denise Woodson APRN LOOM TECHNICIAN Unavailable [phone] Denise Woodson APRN LOOM TECHNICIAN Primary Care Provider Usha Simon APRN LOOM TECHNICIAN Unavailable [phone] Dangelo Salinas MD Unavailable Anastasia Stearns RN Unavailable [phone] Germaine Lopez [facility] Unavailable [phone] Joya Lira [facility] Unavailable Joya Lira [facility] Unavailable Fabi Coates MD Unavailable [phone] Danna CardenasC Unavailable [phone] Arthur Salas AIRPORT SCREENER Unavailable [phone] Randy Maradiaga DO Unavailable + Encounter Details [...] How often do you attend yarsani or adventist serv ices? 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 on file Not on file Not on file Not on file Not on file Not on file Not on file documented as of this encounter Plan of Treatment Upcoming Encounters Date Type Department Care Team (Late st Contact Info) Description 09/25/2024 11:00 AM ON LINE CSR Office Visit [facility] [address] [place] [phone] Denise Woodson APRN [facility] [address] [place] [address] 09/29/2024 9:00 AM ON LINE CSR Virtual Visit [facility] Neurology [address] 3rd [place] [address] Randy Maradiaga, DO 909 [place] [address] 10/09/2024 1:20 PM ON LINE CSR Office Visit [facility] Heart [facility] [place] 6[address] [facility] [address] [place] [phone] Danna Cardenas PA-C 6405 [place], [place] 8[address] 10/15/2024 11:00 AM ON LINE CSR Office Visit [facility] [address] [place] [address] Denise Woodson APRN LOOM TECHNICIAN [address] [place], [place] 94[address] 10/30/2024 4:00 PM ON LINE CSR Virtual Visit [facility] Vascular [facility] [place] [address] [place] [address] Lisa Zambrano MD [address] [place], [place] [address] 12/29/2024 12:45 PM CDT Office Visit [facility] [address] [place] [address] Ave [address] [phone] Fabi Coates MD [address] 9523[address] 12/29/2024 1:45 PM CDT Office Visit [facility] Pediatric [facility]ty Clinic [address] [place], [place] [address]e Explorer [address] [phone] Fabi Coates MD [address] 817525 06/01/2025 11:15 AM CDT Appointment [facility] Care Center Imaging [address] [place] [address] [place] [address] Robin Zepeda MD [address] [place] [address] 2817[address] 06/04/2025 11:00 AM CDT Office Visit [facility] Neurosurgery Clinic [address] 3rd [place] [address] Robin Zepeda MD [address] [place] [address] [phone] Usha Simon APRN LOOM TECHNICIAN [address] [place] [address] 073195 documented as of this encounter Goals Goal Patient Goal Type Associated Problems Recent Progress Patient-Stated? Author I would like additional resources and support to manage my health and prevent future avoidable ED visits/hospital admissions Care Plan Increased risk of re-admission 40%( 4 3:02 PM ON LINE CSR) Anastasia Talamantes, RN Note: Barriers: diagnosis of multiple, chronic, complex medical conditions, provider availability - wait time to complete appointments, etc. Strengths: motivated, engaged in care coordination Patient expressed understanding of goal: yes Action steps to achieve this goal: 1. I will follow up with my providers as scheduled/recommended - Pulmonology: TBD - Mental Health weekly - PT, OT and MEAT AND SEAFOOD CLERK, continuing through [facility] [place]: - PCP: 09/18/2024 & 10/15/2024. - Vascular [...] clinic with 24/7 after hours services available. Staff Design Engineer will remain available as needed. documented as of this encounter Visit Diagnoses Not on filedocumented in this encounter Additional Health Concerns Active Problems Noted Date Diagnosed Date Increased risk of re-admission 02/18/2024 Assessment Noted Time PHQ-9 Depression Total Score: 5 08/03/20 24 12:49 PM ON LINE CSR documented as of this encounter Care Teams Acid Tender Relationship Specialty Start Date End Date Winston Villatoro OD [facility] [place] 701 [facility] [address] [place] [address] PCP - Ophthalmology Ophthalmology 02/11/13 Denise Woodson APRN LOOM TECHNICIAN [address] [place] [address] PCP - General Family Practice 09/21/20 Denise Woodson APRN LOOM TECHNICIAN [address] [place] [address] Assigned PCP 07/17/20 Usha Simon APRN LOOM TECHNICIAN 9 [facility] [id number] [place] [address] Nurse Practitioner Neurological Surgery 01/24/24 Dangelo Salinas MD [address] [place] [address] Neurology 01/27/24 Anastasia Stearns, RN Lead Staff Design Engineer 02/06/24 Germaine Lopez, [facility] Community Health Worker Primary Care - CC 02/18/24 Joya Lira RPH [address] [place] [address] Pharmacist Pharmacist 05/25/24 Joya Lira [facility] [address] [place] [address] Assigned MTM Pharmacist 06/08/24 Fabi Coates MD [address] [place] [address] Genetics, Clinical 06/18/24 Danna Cardenas PA-C 6405 [place] [address] Assigned Heart and Vascular Provider 07/08/24 Arthur Salas LICSW [address] [address] Assigned Behavioral Health Provider 08/08/24 Randy Maradiaga DO [address] [place] [address] Assigned Neuroscience Provider 08/08/24 documented as of this encounter
--- OUTSIDE RECORDS SUMMARY | 2024-09-20 19:20 | XMS_ITS | Encounter Summary ---
Author Organization [place] Address [address] [place] [address] Care Team Providers Care Chemistry Quality Control Analyst Name Role Phone Winston Villatoro OD Unavailable [phone] Denise Woodson APRN [facility] Unavailable [phone] Denise Woodson APRN [facility] Primary Care Provider Usha Simon APRN [facility] Unavailable Dangelo Salinas MD Unavailable Anastasia Stearns RN Unavailable [phone] Germaine Lopez [facility] Unavailable [phone] Joya Lira [facility] Unavailable [phone] Joya Lira [facility] Unavailable [phone] Fabi Coates MD Unavailable [phone] Danna Cardenas PA-C Unavailable [phone] Arthur Salas [employer] Unavailable [phone] Randy Maradiaga DO Unavailable + Reason for Visit * Reason Comments Follow Up stroke Encounter Details Date Type Department Care Team (Late st Contact Info) Description 09/04/2024 11:00 AM OTR TRUCK DRIVER Office Visit [address] [address] Chintan DeniseBARRERA [facility] [address] [place] [address] Anxiety (Primary Dx); History of stroke Social [...] How often do you attend amish or holiness serv ices? 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 Not on file Not on file Not on file Not on file Not on file Not on file Not on file documented as of this encounter Last Filed Vital Signs Vital Sign Reading Time Taken Comments Blood Pressure 131/81 09/04/2024 10:41 AM OTR TRUCK DRIVER Pulse 76 09/04/2024 10:41 AM OTR TRUCK DRIVER Temperature 36.4 C (97.6 F) 09/04/2024 10:41 AM OTR TRUCK DRIVER Respiratory Rate 16 09/04/2024 10:4 1 AM OTR TRUCK DRIVER Oxygen Saturation 96% 09/04/2024 10: 41 AM OTR TRUCK DRIVER Inhaled Oxygen Concentration - - Weight 95.7 kg (210 lb 14.4 oz) 024 10:41 AM OTR TRUCK DRIVER Height 174 cm (5' 8.5) 09/04/2024 10:4 1 AM OTR TRUCK DRIVER Body Mass Index 31.6 09/04/2024 10:41 AM OTR TRUCK DRIVER documented in this encounter Progress Notes * Denise Woodson APRN [facility] - 09/04/2024 11:00 AM CST Assessment & [...] every 2 weeks. She stopped her statin. [place] this was negatively affecting her cognition. She [...] Signed Electronically by: Denise Woodson APRN CNP TRUCK DRIVER * Qing Copeland - 09/04/2024 11:00 AM CST Workability form completed during appointment. Faxed to number on form and sent to patient via [place]. Qing Copeland Lead Engine Room Operator [facility] TRUCK DRIVER documented in this encounter Plan of Treatment Upcoming Encounters Date Type Department Care Team (Late st Contact Info) Description 09/25/2024 11:00 AM OTR TRUCK DRIVER Office Visit [facility] [address] [place] [address] Denise Woodson APRN [facility] [address] [place], [place] [phone] 09/29/2024 9:00 AM OTR TRUCK DRIVER Virtual Visit [facility] Neurology Clinic [address] [place] [address] Randy Maradiaga, [address] [place] [address] 10/09/2024 1:20 PM OTR TRUCK DRIVER Office Visit [facility] Heart [facility] 6[address] [facility] [address] [place] [phone] Danna Cardenas PA-C 6405 [place] [address] 10/15/2024 11:00 AM OTR TRUCK DRIVER [facility] [address] [place] [phone] Denise Woodson, BARRERA [facility] [address] [place], [place] 68[address] 10/30/2024 4:00 PM OTR TRUCK DRIVER Virtual Visit [facility] Vascular [facility] [address] [place] [address] Lisa Zambrano MD [address] [place] [address] 12/29/2024 12:45 PM CDT Office Visit [facility] [address] [place] [address] [phone] Fabi Coates MD [address] [place] [address] 12/29/2024 1:45 PM CDT Office Visit [facility] [address] [place] [phone] Fabi Coates MD [address] [place] [address] 06/01/2025 11:15 AM CDT Appointment [facility] Care Center Imaging [address] [facility] [address] [place] [address] Robin Zepeda MD [address] [place] [address] 075675 06/04/2025 11:00 AM CDT Office Visit [facility] Neurosurgery Clinic [address] 3rd [place] [phone] Robin Zepeda MD [address] [place] [address] 281355 Usha Simon APRN [facility] [address] [place] [address] 423565 documented as of this encounter Goals Goal Patient Goal Type Associated Problems Recent Progress Patient-Stated? Author I would like additional resources and support to manage my health and prevent future avoidable ED visits/hospital admissions Care Plan Increased risk of re-admission 40%( 4 3:02 PM OTR TRUCK DRIVER) Anastasia Talamantes, RN Note: Barriers: diagnosis of multiple, chronic, complex medical conditions, provider availability - wait time to complete appointments, etc. Strengths: motivated, engaged in care coordination Patient expressed understanding of goal: yes Action steps to achieve this goal: 1. I will follow up with my providers as scheduled/recommended - Pulmonology: TBD - Mental Health weekly - PT, OT and PROMOTIONS TEAM LEADER, continuing through [facility] [place]: - PCP: 09/18/2024 & 10/15/2024. - Vascular [...] clinic with 24/7 after hours services available. Frozen Yogurt Maker will remain available as needed. documented as of this encounter Visit Diagnoses Diagnosis Anxiety- Primary Anxiety state, unspecified History of stroke Transient ischemic attack (TIA), and cerebral infarction without residual deficits documented in this encounter Additional Health Concerns Active Problems Noted Date Diagnosed Date Increased risk of re-admission 02/18/2024 Assessment Noted Time PHQ-9 Depression Total Score: 5 08/03/20 24 12:49 PM OTR TRUCK DRIVER documented as of this encounter Care Teams Chemistry Quality Control Analyst Relationship Specialty Start Date End Date Winston Villatoro OD [facility] 701 [facility] 95 [place] [address] PCP - Ophthalmology Ophthalmology 02/11/13 Denise Woodson APRN [facility] [address] [place] [address] PCP - General Family Practice 09/21/20 Denise Woodson APRN [facility] [address] [place] [address] Assigned PCP 07/17/20 Usha Simon APRN [facility] 9 [facility] [id number] [place] [address] Nurse Practitioner Neurological Surgery 01/24/24 Dangelo Salinas MD [address] [facility] [address] [id number] Neurology 01/27/24 Anastasia Stearns, RN Lead Frozen Yogurt Maker 02/06/24 Germaine Lopez, CHW Community Health Worker Primary Care - CC 02/18/24 Joya Lira RPH [address] [place] [address] Pharmacist Pharmacist 05/25/24 Joya Lira RPH [address] [place] [address] Assigned MTM Pharmacist 06/08/24 Fabi Coates MD [address] [place] [address] 1735[address] Genetics, Clinical 06/18/24 Danna Cardenas PA-C [facility]5 [place] [address] Assigned Heart and Vascular Provider 07/08/24 Arthur Salas LICSW [address] [id number] Assigned Behavioral Health Provider 08/08/24 Randy Maradiaga DO [address] [place] [address] 320295 Assigned Neuroscience Provider 08/08/24 documented as of this encounter
--- OUTSIDE RECORDS SUMMARY | 2024-09-20 19:20 | XMS_ITS | Encounter Summary ---
Author Organization [facility] Address [address] [place] [id number] Care Team Providers Care Summer Nanny Name Role Phone Winston Villatoro OD Unavailable Denise Woodson APRN LAND LEASES AND RENTALS MANAGER Unavailable Denise Woodson APRN LAND LEASES AND RENTALS MANAGER Primary Care Provider Usha Simon APRN LAND LEASES AND RENTALS MANAGER Unavailable [phone] Dangelo Salinas MD Unavailable Anastasia Stearns RN Unavailable Germaine Lopez [facility] Unavailable Joya Lira [facility] Unavailable Joya Lira [facility] Unavailable [phone] Fabi Coates MD Unavailable [phone] Danna CardenasC Unavailable [phone] Arthur Salas MANAGER OF BUSINESS Unavailable [phone] Randy Maradiaga DO Unavailable + Encounter Details Date Type Department Care Team (Latest Contact Info) Description 09/11/2024 8:00 AM ELECTRON GUN INSPECTOR Ancillary Procedure [facility] [address] [facility] [address] [place] [address] Randy Maradiaga, [address] [place] [address] Seizure-like activity (H); History of seizure Social [...] How often do you attend yazdanism or yazdanism serv ices? Never 02/28/2024 Do [...] Answer Date Recorded PHQ-2 Score 2 08/04/2024 [facility] - [...] on file Legal Sex 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 ELECTRON GUN INSPECTOR Gender Identity Not on file Sexual [...] st Contact Info) Description 09/25/2024 11:00 AM ELECTRON GUN INSPECTOR Office Visit [facility] [id number] [place] [phone] Denise Woodson, [place] LAND LEASES AND RENTALS MANAGER [address] [place] [address] 09/29/2024 9:00 AM ELECTRON GUN INSPECTOR Virtual Visit [facility] Neurology [facility] [address] [facility] 3rd [place] [phone] Randy Maradiaga, [address] [address] 10/09/2024 1:20 PM ELECTRON GUN INSPECTOR Office Visit [facility] Heart [facility] [address] [facility] [address] [place] [phone] Danna Cardenas PA-C [address] [place], [place] [address] 10/15/2024 11:00 AM ELECTRON GUN INSPECTOR Office Visit [facility] [address] [place] [phone] Denise Woodson, [place] LAND LEASES AND RENTALS MANAGER [address] [place] [address] 10/30/2024 4:00 PM ELECTRON GUN INSPECTOR Virtual Visit [facility] [address] [place] [phone] Lisa Zambrano MD [address] [place] [address] 12/29/2024 12:45 PM CDT Office Visit [facility] [address] [facility] [address],[place] [phone] Fabi Coates MD [address] [facility] [address] [place], [place] [address] 12/29/2024 1:45 PM CDT Office Visit [facility] [address] [facility] [address] [phone] Fabi Coates MD [address] [facility] [address] [place] [address] 06/01/2025 11:15 AM CDT Appointment [facility] Imaging [address] [place] [phone] Robin Zepeda MD [address] [place] [address] 06/04/2025 11:00 AM CDT Office Visit [facility] Neurosurgery [address] 3rd [place] [phone] Robin Zepeda MD [address] [place] [address] Usha Simon APRN [address] [address] documented as of this encounter Goals Goal Patient Goal Type Associated Problems Recent Progress Patient-Stated? Author I would like additional resources and support to manage my health and prevent future avoidable ED visits/hospital admissions Care Plan Increased risk of re-admission 40%( 4 3:02 PM ELECTRON GUN INSPECTOR) No Anastasia Stearns, RN Note: Barriers: diagnosis of multiple, chronic, complex medical conditions, provider availability - wait time to complete appointments, etc. Strengths: motivated, engaged in care coordination Patient expressed understanding of goal: yes Action steps to achieve this goal: 1. I will follow up with my providers as scheduled/recommended - Pulmonology: TBD - Mental Health weekly - PT, OT and CHARGE OPERATOR, continuing through [facility]: - PCP: 09/18/2024 & 10/15/2024. - Vascular [...] clinic with 08/04 after hours services available. Shoe Sewing Machine Operator And Tender will remain available as needed. documented as of this encounter Procedures Procedure Name Priority Date/Time Associated Diagnosis Comments EEG VIDEO 2-12 HRS CONTINUOUS MONITORING Routine 09/11/2024 11:00 AM ELECTRON GUN INSPECTOR Seizure-like activity (H) History of seizure documented in this encounter Results * EEG Video 2-12 hrs Continuous Monitoring (09/11/2024 11:00 AM ELECTRON GUN INSPECTOR) Narrative [facility] - 09/13/2024 10:50 PM ELECTRON GUN INSPECTOR VIDEO EEG DATE: 09/11/2024 VIDEO EEG LOG: [id number] VIDEO EEG DAY#: 1 VIDEO EEG SOURCE [...] Total Score: 5 08/03/20 24 12:49 PM ELECTRON GUN INSPECTOR documented as of this encounter Care Teams Summer Nanny Relationship Specialty Start Date End Date Winston Villatoro OD [facility] [address] [facility] [address] [place] [address] PCP - Ophthalmology Ophthalmology 02/11/13 Denise Woodson APRN LAND LEASES AND RENTALS MANAGER [address] [place] [address] PCP - General Family Practice 09/21/20 Denise Woodson APRN LAND LEASES AND RENTALS MANAGER [address] [place] [address] Assigned PCP 07/17/20 Uhsa Simon APRN LAND LEASES AND RENTALS MANAGER [address] [facility] [place] [address] Nurse Practitioner Neurological Surgery 01/24/24 Dangelo Salinas MD [address] [place] [address] Neurology 01/27/24 Anastasia Stearns, RN Lead Shoe Sewing Machine Operator And Tender 02/06/24 Germaine Lopez, W Community Health Worker Primary Care - CC 02/18/24 Joya [address] [facility] [address] [place] [address] Pharmacist Pharmacist 05/25/24 Joya Lira [facility] [address] [place] [address] Assigned MTM Pharmacist 06/08/24 Fabi Coates MD [address] [place] [id number] Genetics, Clinical 06/18/24 Danna Cardenas PA-C [address] [place] [address] Assigned Heart and Vascular Provider 07/08/24 Arthur Salas MANAGER OF BUSINESS [address] [place] [address] Assigned Behavioral Health Provider 08/08/24 Randy Maradiaga DO [address] [place] [address] Assigned Neuroscience Provider 08/08/24 documented as of this encounter
--- OUTSIDE RECORDS SUMMARY | 2024-09-20 19:20 | XMS_ITS | Encounter Summary ---
Author Organization [place] Address [address] [place] [address] Care Team Providers Care Dairy Equipment Installer Name Role Phone Winston Villatoro OD Unavailable [phone] Denise Woodson APRN SOFTWARE DEVELOPMENT SPECIALIST Unavailable [phone] Denise Woodson APRN SOFTWARE DEVELOPMENT SPECIALIST Primary Care Provider Usha Simon APRN SOFTWARE DEVELOPMENT SPECIALIST Unavailable [phone] Dangelo Salinas MD Unavailable Anastasia Stearns RN Unavailable Germaine Lopez CH Unavailable [phone] Joya Lira [facility] Unavailable Joya Lira [facility] Unavailable Fabi Coates MD Unavailable [phone] Danna CardenasC Unavailable [phone] Arthur Salas SUPERVISOR ORNAMENTAL IRONWORKING Unavailable [phone] Randy Maradiaga DO Unavailable + Reason for Visit * Reason Comments Chest Pain Shortness of Breath Encounter Details Date Type Department Care Team (Late st Contact Info) Description 09/13/2024 10:54 AM COMMUNITY SERVICE MANAGER - 09/13/2024 4:42 PM [facility] [address] [place] [address] Sameer Castillo, DO [facility] [address] [place], [place] [id number] COPD with acute exacerbation (H); Upper respiratory [...] How often do you attend yarsanism or religion serv ices? Never 02/28/2024 Do [...] Answer Date Recorded PHQ-2 Score 2 08/04/2024 [facility] [place] of Occupat ional Health - Occupational Stress [...] file Legal Sex 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 COMMUNITY SERVICE MANAGER Gender Identity Not on file Sexual [...] Comments Blood Pressure 128/86 09/13/2024 4:30 PM COMMUNITY SERVICE MANAGER Pulse 70 09/13/2024 4:36 PM COMMUNITY SERVICE MANAGER Temperature 36.7 C (98.1 F) 09/13/2024 11:43 AM COMMUNITY SERVICE MANAGER Respiratory Rate 12 09/13/2024 4:36 PM COMMUNITY SERVICE MANAGER Oxygen Saturation 98% 09/13/2024 4:36 PM COMMUNITY SERVICE MANAGER Inhaled Oxygen Concentration - - Weight 95.3 kg (210 lb) 09/13/2024 10:56 AM COMMUNITY SERVICE MANAGER Height 172.7 cm (5' 8) 09/13/2024 10:56 AM COMMUNITY SERVICE MANAGER Body Mass Index 31.93 09/13/2024 10:56 AM COMMUNITY SERVICE MANAGER documented in this encounter Discharge Instructions * Attachments The following attachments cannot be sent through Care Everywhere. * URI (Upper Respiratory Infection) (Malawian) documented in this encounter Medications at Time [...] a cough. She states she went to [facility] where they got a chest [...] Past Surgical History: Procedure Laterality Date C COMPUTER AIDED DESIGN TECHNICIAN PROCEDURE DATE: [id number] vag del. C COMPUTER AIDED DESIGN TECHNICIAN PROCEDURE DATE: 2000 tubal ligation C COMPUTER AIDED DESIGN TECHNICIAN PROCEDURE DATE: 1994 D&C CARDIAC SURGERY 06/2006 heart defect repair ESOPHAGOSCOPY, GASTROSCOPY, DUODENOSCOPY (EGD), COMBINED N/A 02/08/2021 Procedure: ESOPHAGOGASTRODUODENOSCOPY (EGD); Surgeon: Tuan Miller MD; Location: GI GI SURGERY 09/2020 gallbladder removed HC KNEE SCOPE,MED/LAT MENISECTOMY 08/04/13 LT HEART CATH, CLOSURE ATRIAL SEPTAL DEFECT 06/20/06 amplatzer septal occluder- serial #[id number] COMPUTER AIDED DESIGN TECHNICIAN (ABSTRACTED) pneumonia several times SURGICAL PATHOLOGY EXAM 02/2012 excision of lipoma on chest wall [facility] VAGINAL HYSTERECTOMY 01/30/06 Physical Exam Patient Vitals [...] to prior, dated 05/10/24. Rate 88 bpm. UT interval 148 ms. QRS duration 78 ms. [...] Health: None Medical Decision Making / Diagnosis [facility] Diagnoses: None MIPS CT for PE was [...] to me. Sameer Castillo DO 09/13/24 1629 UNITY SERVICE MANAGER * Joya Oneill RN - 09/13/2024 11:10 AM CST Bed: ED08 Expected date: Expected time: Means of arrival: Comments: triage UNITY SERVICE MANAGER * Aliya Martinez RN - 09/13/2024 10:59 [...] WDL WDL Cognitive/Neuro/Behavioral WDL Cognitive/Neuro/Behavioral WDL WDL UNITY SERVICE MANAGER documented in this encounter Plan of Treatment Upcoming Encounters Date Type Department Care Team (Late st Contact Info) Description 09/25/2024 11:00 AM COMMUNITY SERVICE MANAGER Office Visit [facility] [address] [place] [phone] Denise Woodson APRN SOFTWARE DEVELOPMENT SPECIALIST [address] [place], [place] [phone] 09/29/2024 9:00 AM COMMUNITY SERVICE MANAGER Virtual Visit [facility] [address] [phone] Randy Maradiaga, [address] 8[address] 10/09/2024 1:20 PM COMMUNITY SERVICE MANAGER Office Visit [facility] [place] [phone] [facility] [address] [place] [phone] Danna Cardenas PA-C [address] [place] [address] 10/15/2024 11:00 AM COMMUNITY SERVICE MANAGER Office Visit [facility] [address] [place] [phone] Denise Woodson APRN SOFTWARE DEVELOPMENT SPECIALIST [address] [place], [place] [phone] 10/30/2024 4:00 PM COMMUNITY SERVICE MANAGER Virtual Visit [facility] [place] [address] [place] [phone] Lisa Zambrano MD [address] [place] [address] 12/29/2024 12:45 PM CDT Office Visit [facility] [address] [place] [address] [facility] [address] [phone] Fabi Coates MD [address] [place] [phone] 12/29/2024 1:45 PM CDT Office Visit [facility] [address] [place] [address] [facility] [address] [phone] Fabi Coates MD [address] [place] [phone] 06/01/2025 11:15 AM CDT Appointment [facility] [address] [facility] [address] [place] [phone] Robin Zepeda MD [address] [place] [address] 8379[address] 06/04/2025 11:00 AM CDT Office Visit [facility] [address] 3rd [place] [phone] Robin Zepeda MD [address] [place] [phone] Usha Simon APRN [address] [id number] documented as of this encounter Goals Goal Patient Goal Type Associated Problems Recent Progress Patient-Stated? Author I would like additional resources and support to manage my health and prevent future avoidable ED visits/hospital admissions Care Plan Increased risk of re-admission 40%( 4 3:02 PM COMMUNITY SERVICE MANAGER) Anastasia Talamantes RN Note: Barriers: diagnosis of multiple, chronic, complex medical conditions, provider availability - wait time to complete appointments, etc. Strengths: motivated, engaged in care coordination Patient expressed understanding of goal: yes Action steps to achieve this goal: 1. I will follow up with my providers as scheduled/recommended - Pulmonology: TBD - Mental Health weekly - PT, OT and DIE TURNER, continuing through [facility]: - PCP: 09/18/2024 & 10/15/2024. - Vascular [...] clinic with 24/7 after hours services available. Rewinder Operator will remain available as needed. documented as of this encounter Procedures Procedure Name Priority Date/Time Associated Diagnosis Comments CT CHEST PULMONARY EMBOLISM W CONTRAST STAT 09/13/2024 12:59 PM COMMUNITY SERVICE MANAGER INFLUENZA A/B, RSV AND SARS-COV2 PCR STAT 09/13/2024 11:49 AM COMMUNITY SERVICE MANAGER XR CHEST 2 VIEWS STAT 09/13/2024 11:2 5 AM COMMUNITY SERVICE MANAGER EXTRA TUBE STAT 09/13/2024 11:06 AM COMMUNITY SERVICE MANAGER EXTRA BLUE TOP TUBE STAT 09/13/2024 1 1:06 AM COMMUNITY SERVICE MANAGER CBC WITH PLATELETS AND DIFFERENTIAL STAT 09/13/2024 11:06 AM COMMUNITY SERVICE MANAGER TROPONIN T, HIGH SENSITIVITY Add-On 09/13/2024 11:06 AM COMMUNITY SERVICE MANAGER CBC WITH PLATELETS & DIFFERENTIAL STAT 09/13/2024 11:06 AM COMMUNITY SERVICE MANAGER D DIMER QUANTITATIVE STAT 09/13/2024 11:06 AM COMMUNITY SERVICE MANAGER COMPREHENSIVE METABOLIC PANEL STAT 09/13/2024 11:06 AM COMMUNITY SERVICE MANAGER EKG 12-LEAD, TRACING ONLY STAT 09/13/2024 10:53 AM COMMUNITY SERVICE MANAGER documented in this encounter Results * CT Chest Pulmonary Embolism w Contrast (09/13/2024 12:59 PM COMMUNITY SERVICE MANAGER) Anatomical Region Laterality Modality Chest, SUBRAD CT BODY, UMP CT CHEST Computed Tomography 09/13/2024 12:5 9 PM COMMUNITY SERVICE MANAGER Impressions 09/13/2024 2:23 PM COMMUNITY SERVICE MANAGER IMPRESSION: 1. No pulmonary artery embolism. 2. Mild emphysema and mild bronchiolitis with bronchial wall thickening and pulmonary air trapping. No pneumonic infiltrate or pleural effusion. Narrative 09/13/2024 2:23 PM COMMUNITY SERVICE MANAGER EXAM: CT CHEST PULMONARY EMBOLISM W CONTRAST LOCATION: [facility] DATE: 09/13/2024 INDICATION: Chest pain and [...] CT CHEST PULMONARY EMBOLISM W CONTRAST LOCATION: [facility] DATE: 09/13/2024 INDICATION: Chest pain and [...] infiltrate or pleural effusion. Sameer Castillo DO [facility] ORDERABLES Final Result * Influenza A/B, RSV and SARS-CoV2 PCR (COVID-19) Nasopharyngeal (09/13/2024 11:49 AM COMMUNITY SERVICE MANAGER) Influenza A PCR Negative Negative 09/13/2024 12:31 PM COMMUNITY SERVICE MANAGER LABORATORY Influenza B PCR Negative Negative 09/13/2024 12:31 PM COMMUNITY SERVICE MANAGER LABORATORY RSV PCR Negative Negative 09/13/2024 12:31 PM COMMUNITY SERVICE MANAGER LABORATORY SARS CoV2 PCR Negative Negative 09/13/2024 12:31 PM COMMUNITY SERVICE MANAGER LABORATORY Comment:NEGATIVE: SARS-CoV-2 (COVID-19) RNA not detected, presumed negative. Swab NASOPHARYNGEAL STRUCTURE / Unknown Non-blood Collection / Unknown 09/13/2024 11:49 AM COMMUNITY SERVICE MANAGER 09/13/2024 11:52 AM COMMUNITY SERVICE MANAGER Narrative LABORATORY - 09/13/2024 12:31 PM COMMUNITY SERVICE MANAGER Testing was performed using the Xpert Xpress CoV2/Flu/RSV Assay on the [employer] GeneXpert Instrument. This test should be ordered [...] management. This test was validated by the [facility] [employer] These laboratories are certified under the Clinical Laboratory Improvement Amendments of 1988 (CLIA-88) as qualified to perfom high complexity laboratory testing. Sameer Castillo DO LAB - MICRO GENERA L ORDERABLES Final Result LABORATORY [facility] [address] 1[address] floor, [address] [place] [address], [facility] [phone] * Chest XR, PA & LAT (09/13/2024 11:25 AM COMMUNITY SERVICE MANAGER) Anatomical Region Laterality Modality Chest Digital Radiogra phy 09/13/2024 11:2 5 AM COMMUNITY SERVICE MANAGER Impressions 09/13/2024 12:27 PM COMMUNITY SERVICE MANAGER IMPRESSION: Pulmonary hyperinflation consistent with known emphysema. PFO closure device. Mild bibasilar opacities likely reflect atelectasis. Stable biapical scarring. No pleural effusion. Stable heart size. Narrative 09/13/2024 12:27 PM COMMUNITY SERVICE MANAGER EXAM: XR CHEST 2 VIEWS LOCATION: [facility] DATE: 09/13/2024 INDICATION: chst pain and sob aftr aspirationj COMPARISON: CT 03/18/2024 Procedure Note Dionicio Ennis MD - 09/13/2024 EXAM: XR CHEST 2 VIEWS LOCATION: [facility] DATE: 09/13/2024 INDICATION: chst pain and sob aftr aspirationj COMPARISON: CT 03/18/2024 IMPRESSION: Pulmonary hyperinflation consistent with known emphysema. PFOclosure device. Mild bibasilar opacities likely reflect atelectasis.Stable biapical scarring. No pleural effusion. Stable heart size. Sameer Castillo DO IMG DIAGNOSTIC [facility] ORDERABLES Final Result * (ABNORMAL) D dimer quantitative (09/13/2024 11:06 AM COMMUNITY SERVICE MANAGER) [facility] [address] [facility] D-Dimer Quantitative 0.82(H) 0.00 - 0.50 ug/mL FEU 09/13/2024 11:54 AM [facility] Blood VENOUS LINE / Unknown Venipuncture / Unknown 09/13/2024 11:06 AM COMMUNITY SERVICE MANAGER 09/13/2024 11:15 AM COMMUNITY SERVICE MANAGER Narrative LABORATORY - 09/13/2024 11:54 AM COMMUNITY SERVICE MANAGER This D-dimer assay is intended for use in conjunction with a clinical pretest probability assessment model to exclude pulmonary embolism (PE) and deep venous thrombosis (DVT) in outpatients suspected of PE or DVT. The cut-off value is 0.50 ug/mL FEU. Sameer Castillo DO LAB - BLOOD ORDERA BLES Final Result LABORATORY [facility] [address] floor, [address] [place] [address], [place] [phone] * Troponin T, High Sensitivity (09/13/2024 11:06 AM COMMUNITY SERVICE MANAGER) [facility] [address] Troponin T, High Sensitivity <6 <=14 ng/L 09/13/2024 11:47 AM [facility] Comment: Either a High Sensitivity [...] Unknown Venipuncture / Unknown 09/13/2024 11:06 AM COMMUNITY SERVICE MANAGER 09/13/2024 11:15 AM COMMUNITY SERVICE MANAGER Sameer Castillo DO LAB - BLOOD ORDERA BLES Final Result LABORATORY [facility] [address], [address] [place] [address], [facility] [phone] * Extra Blue Top Tube (09/13/2024 11:06 AM COMMUNITY SERVICE MANAGER) Hold Specimen x 09/13/2024 11:46 AM [facility] Blood VENOUS LINE / Unknown Venipuncture / Unknown 09/13/2024 11:06 AM COMMUNITY SERVICE MANAGER 09/13/2024 11:15 AM COMMUNITY SERVICE MANAGER Sameer Castillo DO LAB - BLOOD ORDERA BLES Final Result LABORATORY [facility] [address], [address] [place] [address], [place] [phone] * CBC with platelets and differential (09/13/2024 11:06 AM COMMUNITY SERVICE MANAGER) [facility] [address] WBC Count 7.4 4.0 - 11.0 10e3/uL 09/13/2024 11:17 AM [facility] RBC Count 4.95 3.80 - 5.20 10e6/uL 09/13/2024 11:17 AM [facility] Hemoglobin 15.0 11.7 - 15.7 g/dL 09/13/2024 11:17 AM [facility] Hematocrit 44.6 35.0 - 47.0 % 09/13/2024 11:17 AM [facility] MCV 90 78 - 100 fL 09/13/2024 11:17 AM [facility] MCH 30.3 26.5 - 33.0 pg 09/13/2024 11:17 AM [facility] MCHC 33.6 31.5 - 36.5 g/dL 09/13/2024 11:17 AM [facility] RDW 12.1 10.0 - 15.0 % 09/13/2024 11:17 AM [facility] Platelet Count 205 150 - 450 10e3/uL 09/13/2024 11:17 AM [facility] % Neutrophils 57 % 09/13/2024 11:17 AM [facility] % Lymphocytes 29 % 09/13/2024 11:17 AM [facility] % Monocytes 6 % 09/13/2024 11:17 AM [facility] % Eosinophils 8 % 09/13/2024 11:17 AM [facility] % Basophils 1 % 09/13/2024 11:17 AM [facility] % Immature Granulocytes 0 % 09/13/2024 11:17 AM [facility] NRBCs per 100 WBC 0 <1 /100 024 11:17 AM [facility] Absolute Neutrophils 4.2 1.6 - 8.3 10e3/uL 09/13/2024 11:17 AM [facility] Absolute Lymphocytes 2.1 0.8 - 5.3 10e3/uL 09/13/2024 11:17 AM [facility] Absolute Monocytes 0.4 0.0 - 1.3 10e3/uL 09/13/2024 11:17 AM [facility] Absolute Eosinophils 0.6 0.0 - 0.7 10e3/uL 09/13/2024 11:17 AM [facility] Absolute Basophils 0.1 0.0 - 0.2 10e3/uL 09/13/2024 11:17 AM [facility] Absolute Immature Granulocytes 0.0 <=0.4 10e3/uL 09/13/2024 11:17 AM [facility] Absolute NRBCs 0.0 10e3/uL 09/13/2024 11:17 AM [facility] Blood VENOUS LINE / Unknown Venipuncture / Unknown 09/13/2024 11:06 AM COMMUNITY SERVICE MANAGER 09/13/2024 11:15 AM [facility] Sameer Castillo DO LAB - BLOOD ORDERA BLES Final Result LABORATORY [facility] [address], [address] [place] [address], [facility] [phone] * (ABNORMAL) Comprehensive metabolic panel (09/13/2024 11:06 AM [facility]) Sodium 142 135 - 145 mmol/L 09/13/2024 11:47 AM [facility] Potassium 4.6 3.4 - 5.3 mmol/L 09/13/2024 11:47 AM [facility] Carbon Dioxide (CO2) 29 22 - 29 mmol/L 09/13/2024 11:47 AM [facility] Anion Gap 10 7 - 15 mmol/L 09/13/2024 11:47 AM [facility] Urea Nitrogen 14.5 6.0 - 20.0 mg/dL 09/13/2024 11:47 AM [facility] Creatinine 0.82 0.51 - 0.95 mg/dL 09/13/2024 11:47 AM [facility] GFR Estimate 88 >60 mL/min/1.7 3m2 09/13/2024 11:47 AM [facility] Comment:eGFR calculated usin 2020 CKD-EPI equation. Calcium 10.1 8.8 - 10.4 mg/dL 09/13/2024 11:47 AM [facility] Comment:Reference intervals for this test were updated on 03/31/2024 to reflect our healthy population more accurately. There may be differences in the flagging of prior results with similar values performed with this method. Those prior results can be interpreted in the context of the updated reference intervals. Chloride 103 98 - 107 mmol/L 09/13/2024 11:47 AM [facility] Glucose 105(H) 70 - 99 mg/dL 09/13/2024 11:47 AM [facility] Alkaline Phosphatase 117 40 - 150 U/L 09/13/2024 11:47 AM [facility] AST 28 0 - 45 U/L 09/13/2024 11:47 AM [facility] ALT 27 0 - 50 U/L 09/13/2024 11:47 AM [facility] Protein Total 7.9 6.4 - 8.3 g/dL 09/13/2024 11:47 AM [facility] Albumin 4.4 3.5 - 5.2 g/dL 09/13/2024 11:47 AM [facility] Bilirubin Total 0.9 <=1.2 mg/dL 09/13/2024 11:47 AM [facility] Blood VENOUS LINE / Unknown Venipuncture / Unknown 09/13/2024 11:06 AM COMMUNITY SERVICE MANAGER 09/13/2024 11:15 AM [facility] us Sameer Castillo DO LAB - BLOOD ORDERA BLES Final Result LABORATORY [facility] [address], [address] [place] [address], [facility] [phone] * EKG 12 lead (09/13/2024 10:53 AM [facility]) Systolic Blood Pressure mmHg RADIOLOGY RESULTS Diastolic Blood Pressure mmHg RADIOLOGY RESULTS Ventricular Rate 88 BPM RAD IOLOGY RESULTS Atrial Rate 88 BPM RADIOLOG Y RESULTS UT Interval 148 ms RADIOLOG Y RESULTS QRS Duration 78 ms RADIOLO GY RESULTS QT 316 ms RADIOLOGY RESULTS QTc 382 ms RADIOLOGY RESULTS P [place] 62 degrees RADIOLOGY RESULTS R AXIS 49 degrees RADIOLOGY RESULTS T [place] -12 degrees RADIOLOGY RESULTS Interpretation ECG Sinus rhythm Possible Left atrial enlargement T wave abnormality, consider inferolateral ischemia Abnormal ECG When compared with ECG of 10-May-2024 11:25, T wave inversion more evident in Inferior leads T wave inversion now evident in Anterior leads Confirmed by GENERATED REPORT, COMPUTER ([id number]), health editor Felicita Pettit ([id number]) on 09/13/2024 12:08:04 PM RADIOLOGY RESULTS 09/13/2024 10:5 3 AM COMMUNITY SERVICE MANAGER 09/13/2024 12:08 PM COMMUNITY SERVICE MANAGER Tran Qureshi MD ECG ORDERABLES Edited R [...] For 1 dose $Given 09/13/2024 4:37 PM COMMUNITY SERVICE MANAGER 10 mg iopamidol (ISOVUE-370) solution 75 mL 75 mL, Intravenous, ONCE, On 09/13/24 at 1250, For 1 dose $Given 09/13/2024 12:50 PM COMMUNITY SERVICE MANAGER 75 mLs Saline As instructed, 100 mL, ONCE, On 09/13/24 at 1250, For 1 dose, This entry is for use by Radiology to intermittently used as a flush in patients receiving a CT scan. $Given 09/13/2024 12:50 PM COMMUNITY SERVICE MANAGER 100 mLs documented in this encounter Active and Recently Administered Medications Times are shown in COMMUNITY SERVICE MANAGER. Scheduled Medication Order 09/11/2024 09/12/2024 09/13/2024 dexAMETHasone [...] COVID-19 09/13/2024 09/13/2024 09/13/2024 12:31 PM COMMUNITY SERVICE MANAGER Assessment Noted Time PHQ-9 Depression Total Score: 5 08/03/20 24 12:49 PM COMMUNITY SERVICE MANAGER documented as of this encounter Care Teams Dairy Equipment Installer Relationship Specialty Start Date End Date Winston Villatoro OD [facility] [place] [address] [place] [address] PCP - Ophthalmology Ophthalmology 02/11/13 Denise Woodson APRN SOFTWARE DEVELOPMENT SPECIALIST [address] [place] [address] PCP - General Family Practice 09/21/20 Denise Woodson APRN SOFTWARE DEVELOPMENT SPECIALIST [address] [place] [address] Assigned PCP 07/17/20 Usha Simon APRN SOFTWARE DEVELOPMENT SPECIALIST 9 [facility], [place] [address] Nurse Practitioner Neurological Surgery 01/24/24 Dangelo Salinas MD [address] [place], [place] [id number] Neurology 01/27/24 Anastasia Stearns, RN Lead Rewinder Operator 02/06/24 Germaine Lopez, CHW Community Health Worker Primary Care - CC 02/18/24 Joya Lira [facility] [address] [place] [address] Pharmacist Pharmacist 05/25/24 Soraya Joya [facility] [address] [place] [address] Assigned MTM Pharmacist 06/08/24 Fabi Coates MD [address] [place] [address] [address] [place] [address] Genetics, Clinical 06/18/24 Danna Cardenas PA-C [address] [place] [address] Assigned Heart and Vascular Provider 07/08/24 Arthur Salas [facility] [address] [address] Assigned Behavioral Health Provider 08/08/24 Randy Maradiaga DO [address] [place] [address] Assigned Neuroscience Provider 08/08/24 documented as of this encounter
--- OUTSIDE RECORDS SUMMARY | 2024-09-20 19:20 | XMS_ITS | Encounter Summary ---
Author Organization [place] Address [address] [place] [address] Care Team Providers Care Limousine Rental Clerk Name Role Phone Winston Villatoro OD Unavailable Denise Woodson APRN INKING MACHINE TENDER Unavailable [phone] Denise Woodson APRN INKING MACHINE TENDER Primary Care Provider Usha Simon APRN INKING MACHINE TENDER Unavailable [phone] Dangelo Salinas MD Unavailable Anastasia Stearns RN Unavailable [phone] Germaine [address] [facility] Unavailable [phone] Joya Lira [facility] Unavailable [phone] Joya Lira [facility] Unavailable Fabi Coates MD Unavailable [phone] Danna CardenasC Unavailable [phone] Arthur Salas INVESTMENT ACCOUNTING CLERK Unavailable [phone] Randy Maradiaga DO Unavailable + Encounter Details Date Type Department Care Team (Late st Contact Info) Description 08/17/2024 Abstract M [facility] Neuropsychology [address] 3rd [place] [address] Tulio Ogden, PhD [address] [address] Social History Tobacco Use Types Packs/Day Years [...] How often do you attend buddhist or mosque serv ices? Never 02/28/2024 Do [...] Date Recorded PHQ-2 Score 2 08/04/2024 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 Not on file [...] Command 3 Copy 3 DCT E-Score 6 AGING ARCHITECT documented in this encounter Plan of Treatment Upcoming Encounters Date Type Department Care Team (Late st Contact Info) Description 09/25/2024 11:00 AM MESSAGING ARCHITECT Office Visit [facility] [address] [place] [phone] Denise Woodson APRN INKING MACHINE TENDER [address] [place] [address] 09/29/2024 9:00 AM MESSAGING ARCHITECT Virtual Visit [facility] Neurology [address] [place] [address] Randy Maradiaga, [address] [place] [address] 10/09/2024 1:20 PM MESSAGING ARCHITECT Office Visit [facility] Heart [facility] [address] [facility] [address] [place] [phone] Danna Cardenas PA-C 6405 [place] [address] 10/15/2024 11:00 AM MESSAGING ARCHITECT [facility] [address] [place] [address] Denise Woodson APRN INKING MACHINE TENDER [address] [place], [place] [phone] 10/30/2024 4:00 PM MESSAGING ARCHITECT Virtual Visit [facility] Vascular [facility] [address] [place] [phone] Lisa Zambrano MD [address] [place], [place] [address] 12/29/2024 12:45 PM CDT Office Visit [facility] [address] [place] [address] [phone] Fabi Coates MD [address] [place] [address]67[address] 12/29/2024 1:45 PM CDT Office Visit [facility] [address] [place] [phone] Fabi Coates MD [address] [place] [address] 361655 06/01/2025 11:15 AM CDT Appointment [facility] Imaging [address] [facility] [address] [place] [phone] Robin Zepeda MD [address] [place] [address] 245945 06/04/2025 11:00 AM CDT Office Visit [facility] Neurosurgery Clinic [address] 3rd [place] [phone] Robin Zepeda MD [address] [place] [address]395 Usha Simon APRN INKING MACHINE TENDER [address] [address] documented as of this encounter Goals Goal Patient Goal Type Associated Problems Recent Progress Patient-Stated? Author I would like additional resources and support to manage my health and prevent future avoidable ED visits/hospital admissions Care Plan Increased risk of re-admission 40%( 4 3:02 PM MESSAGING ARCHITECT) Anastasia Talamantes, RN Note: Barriers: diagnosis of multiple, chronic, complex medical conditions, provider availability - wait time to complete appointments, etc. Strengths: motivated, engaged in care coordination Patient expressed understanding of goal: yes Action steps to achieve this goal: 1. I will follow up with my providers as scheduled/recommended - Pulmonology: TBD - Mental Health weekly - PT, OT and ELECTRONICS TECHNOLOGY DEPARTMENT CHAIR, continuing through [facility] [place]: - PCP: 09/18/2024 & 10/15/2024. - Vascular [...] with 24/7 after hours services available. Special Needs Caregiver will remain available as needed. documented as of this encounter Visit Diagnoses Not on filedocumented in this encounter Additional Health Concerns Active Problems Noted Date Diagnosed Date Increased risk of re-admission 02/18/2024 Assessment Noted Time PHQ-9 Depression Total Score: 5 08/03/20 24 12:49 PM MESSAGING ARCHITECT documented as of this encounter Care Teams Limousine Rental Clerk Relationship Specialty Start Date End Date Winston Villatoro OD [facility] [address] [facility] [address] [place] [address] PCP - Ophthalmology Ophthalmology 02/11/13 Denise Woodson APRN INKING MACHINE TENDER [address] [place] [address] PCP - General Family Practice 09/21/20 Denise Woodson APRN INKING MACHINE TENDER [address] [place] [address] Assigned PCP 07/17/20 Usha Simon APRN INKING MACHINE TENDER 9 [facility] [id number] [address] Nurse Practitioner Neurological Surgery 01/24/24 Dangelo Salinas MD [address] [facility] [address] [id number] Neurology 01/27/24 Anastasia Stearns, RN Lead Special Needs Caregiver 02/06/24 Germaine Lopez, CHW Community Health Worker Primary Care - CC 02/18/24 Joya Lira RPH [address] [address] Pharmacist Pharmacist 05/25/24 Joya Lira RPH [address] [place] [address] Assigned MTM Pharmacist 06/08/24 Fabi Coates MD [address] [place] [address] 75 [place], [place] [address] Genetics, Clinical 06/18/24 Danna Cardenas PA-C 6405 [place] [address] Assigned Heart and Vascular Provider 07/08/24 Arthur Salas LICSW [address] [id number] Assigned Behavioral Health Provider 08/08/24 Randy Maradiaga DO 909 [place], [place] 589125 Assigned Neuroscience Provider 08/08/24 documented as of this encounter
--- OUTSIDE RECORDS SUMMARY | 2024-09-20 19:20 | XMS_ITS | Encounter Summary ---
Author Organization [place] Address [address] [place] [address] Care Team Providers Care Monkey Breeder Name Role Phone Winston Villatoro OD Unavailable [phone] Denise Woodson APRN STANDPIPE TENDER Unavailable [phone] Denise Woodson APRN STANDPIPE TENDER Primary Care Provider Usha Simon APRN STANDPIPE TENDER Unavailable [phone] Dangelo Salinas MD Unavailable Anastasia Stearns RN Unavailable [phone] Germaine Lopez [facility] Unavailable [phone] Joya Lira [facility] Unavailable Joya Lira [facility] Unavailable [phone] Fabi Coates MD Unavailable [phone] Danna CardenasC Unavailable [phone] Arthur Salas CELERY PACKER Unavailable [phone] Randy Maradiaga DO Unavailable + Encounter Details [...] How often do you attend alevism or orthodox serv ices? 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 Not on file Not on file Not on file Not on file Not on file Not on file documented as of this encounter Plan of Treatment Upcoming Encounters Date Type Department Care Team (Late st Contact Info) Description 09/25/2024 11:00 AM ORTHOPEDIC TECHNICIAN Office Visit [facility] [address] [place] [phone] Denise Woodson APRN [facility] [address] [place] [address] 09/29/2024 9:00 AM ORTHOPEDIC TECHNICIAN Virtual Visit [facility] Neurology [address] 3rd [place] [address] Randy Maradiaga, DO 909 [place] [address] 10/09/2024 1:20 PM ORTHOPEDIC TECHNICIAN Office Visit [facility] [place] [address] [facility] [address] [place] [phone] Danna Cardenas PA-C 6405 [place], [place] 79[address] 10/15/2024 11:00 AM ORTHOPEDIC TECHNICIAN Office Visit [facility] [address] [place] [address] Denise Woodson APRN STANDPIPE TENDER [address] [place], [place] [phone] 10/30/2024 4:00 PM ORTHOPEDIC TECHNICIAN Virtual Visit [facility] Vascular [facility] [place] [address] [place] [phone] Lisa Zambrano MD [address] [place], [place] [address] 12/29/2024 12:45 PM CDT Office Visit [facility] [address] [place] [address] Ave [address] [phone] Fabi Coates MD [address] 403675 12/29/2024 1:45 PM CDT Office Visit [facility] [address] [place], [place] [address]e [facility] [address] [phone] Fabi Coates MD [address] 169035 06/01/2025 11:15 AM CDT Appointment [facility] Care Center Imaging [address] [place] [address] [place] [phone] Robin Zepeda MD [address] [place] [address] 822405 06/04/2025 11:00 AM CDT Office Visit [facility] Neurosurgery Clinic [address] 3rd [place] [phone] Robin Zepeda MD [address] [place] [address] [phone] Usha Simon APRN STANDPIPE TENDER [address] [place] [address]355 documented as of this encounter Goals Goal Patient Goal Type Associated Problems Recent Progress Patient-Stated? Author I would like additional resources and support to manage my health and prevent future avoidable ED visits/hospital admissions Care Plan Increased risk of re-admission 40%( 4 3:02 PM ORTHOPEDIC TECHNICIAN) Anastasia Talamantes, RN Note: Barriers: diagnosis of multiple, chronic, complex medical conditions, provider availability - wait time to complete appointments, etc. Strengths: motivated, engaged in care coordination Patient expressed understanding of goal: yes Action steps to achieve this goal: 1. I will follow up with my providers as scheduled/recommended - Pulmonology: TBD - Mental Health weekly - PT, OT and HEALTHCARE BUSINESS ANALYST, continuing through [facility] [place]: - PCP: 09/18/2024 & 10/15/2024. - Vascular [...] clinic with 24/7 after hours services available. Time Study Analyst will remain available as needed. documented as of this encounter Visit Diagnoses Not on filedocumented in this encounter Additional Health Concerns Active Problems Noted Date Diagnosed Date Increased risk of re-admission 02/18/2024 Assessment Noted Time PHQ-9 Depression Total Score: 5 08/03/20 24 12:49 PM ORTHOPEDIC TECHNICIAN documented as of this encounter Care Teams Monkey Breeder Relationship Specialty Start Date End Date Winston Villatoro OD [facility] [place] [address] [facility] [address] [place] [address] PCP - Ophthalmology Ophthalmology 02/11/13 Denise Woodson APRN STANDPIPE TENDER [address] [place] [address] PCP - General Family Practice 09/21/20 Denise Woodson APRN STANDPIPE TENDER [address] [place] [address] Assigned PCP 07/17/20 Usha Simon APRN STANDPIPE TENDER 9 [facility] [id number] [place] [address] Nurse Practitioner Neurological Surgery 01/24/24 Dangelo Salinas MD [address] [place] [address] Neurology 01/27/24 Anastasia Stearns, RN Lead Time Study Analyst 02/06/24 Germaine Lopez, [facility] Community Health Worker Primary Care - CC 02/18/24 Joya Lira RPH [address] [place] [address] Pharmacist Pharmacist 05/25/24 Joya Lira [facility] [address] [place] [address] Assigned MTM Pharmacist 06/08/24 Fabi Coates MD [address] [place] [address] Genetics, Clinical 06/18/24 Danna Cardenas PA-C 6405 [place] [address] Assigned Heart and Vascular Provider 07/08/24 Arthur Salas LICSW [address] [address] Assigned Behavioral Health Provider 08/08/24 Randy Maradiaga DO [address] [place] [address] Assigned Neuroscience Provider 08/08/24 documented as of this encounter
--- OUTSIDE RECORDS SUMMARY | 2024-09-20 19:20 | XMS_ITS | Encounter Summary ---
Author Organization [place] Address [address] [place] [address] Care Team Providers Care Parcel Post Order Clerk Name Role Phone Winston Villatoro OD Unavailable [phone] Denise Woodson APRN PATTERN DEVELOPER Unavailable [phone] Denise Woodson APRN PATTERN DEVELOPER Primary Care Provider Usha Simon APRN PATTERN DEVELOPER Unavailable [phone] Dangelo Salinas MD Unavailable Anastasia Stearns RN Unavailable [phone] Germaine Lopez [facility] Unavailable Joya Lira [facility] Unavailable Joya Lira [facility] Unavailable Fabi Coates MD Unavailable [phone] Danna CardenasC Unavailable [phone] Arthur Salas GENERAL PRODUCTION MANAGER Unavailable [phone] Randy Maradiaga DO Unavailable + Encounter Details [...] How often do you attend denominational or jew serv ices? 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 Not on file Not on file Not on file Not on file Not on file documented as of this encounter Plan of Treatment Upcoming Encounters Date Type Department Care Team (Late st Contact Info) Description 09/25/2024 11:00 AM CARE NURSE RN Office Visit [facility] [address] [place] [phone] Denise Woodson APRN [facility] [address] [place] [address] 09/29/2024 9:00 AM CARE NURSE RN Virtual Visit [facility] Neurology [address] 3rd [place] [address] Randy Maradiaga, DO 909 [place] [address] 10/09/2024 1:20 PM CARE NURSE RN Office Visit [facility] Heart [facility] [place] [address] [facility] [address] [place] [phone] Danna Cardenas PA-C 6405 [place], [place] 9[address] 10/15/2024 11:00 AM CARE NURSE RN Office Visit [facility] [address] [place] [address] Denise Woodson APRN PATTERN DEVELOPER [address] [place], [place] [phone] 10/30/2024 4:00 PM CARE NURSE RN Virtual Visit [facility] Vascular [facility] [place] [address] [place] [phone] Lisa Zambrano MD [address] [place], [place] [address] 12/29/2024 12:45 PM CDT Office Visit [facility] [address] [place] [address] Ave [facility] [address] [phone] Fabi Coates MD [address] 995[address] 12/29/2024 1:45 PM CDT Office Visit [facility] Pediatric Specialty Clinic [address] [place], [place] [address]e Explorer [address] [phone] Fabi Coates MD [address] 865985 06/01/2025 11:15 AM CDT Appointment [facility] Care Center Imaging [address] [place] [phone] Robin Zepeda MD [address] [place] [address] 519535 06/04/2025 11:00 AM CDT Office Visit [facility] Neurosurgery Clinic [address] 3rd [place] [phone] Roibn Zepeda MD [address] [place] [address] [phone] Usha Simon APRN PATTERN DEVELOPER [address] [place] [address] 562395 documented as of this encounter Goals Goal Patient Goal Type Associated Problems Recent Progress Patient-Stated? Author I would like additional resources and support to manage my health and prevent future avoidable ED visits/hospital admissions Care Plan Increased risk of re-admission 40%( 4 3:02 PM CARE NURSE RN) Anastasia Talamantes, RN Note: Barriers: diagnosis of multiple, chronic, complex medical conditions, provider availability - wait time to complete appointments, etc. Strengths: motivated, engaged in care coordination Patient expressed understanding of goal: yes Action steps to achieve this goal: 1. I will follow up with my providers as scheduled/recommended - Pulmonology: TBD - Mental Health weekly - PT, OT and JOB SITE SUPERINTENDENT, continuing through [facility] [place]: - PCP: 09/18/2024 & 10/15/2024. - Vascular [...] with 24/7 after hours services available. Senior Net Software Developer will remain available as needed. documented as of this encounter Visit Diagnoses Not on filedocumented in this encounter Additional Health Concerns Active Problems Noted Date Diagnosed Date Increased risk of re-admission 02/18/2024 Assessment Noted Time PHQ-9 Depression Total Score: 5 08/03/20 24 12:49 PM CARE NURSE RN documented as of this encounter Care Teams Parcel Post Order Clerk Relationship Specialty Start Date End Date Winston Villatoro OD [facility] 701 [facility] [address] [place] [address] PCP - Ophthalmology Ophthalmology 02/11/13 Denise Woodson APRN PATTERN DEVELOPER [address] [place] [address] PCP - General Family Practice 09/21/20 Denise Woodson APRN PATTERN DEVELOPER [address] [place] [address] Assigned PCP 07/17/20 Usha Simon APRN PATTERN DEVELOPER 9 [facility] [id number] [place] [address] Nurse Practitioner Neurological Surgery 01/24/24 Dangelo Salinas MD [address] [place] [address] Neurology 01/27/24 Anastasia Stearns, RN Lead Senior Net Software Developer 02/06/24 Germaine Lopez, [facility] Community Health Worker Primary Care - CC 02/18/24 Joya Lira RPH [address] [place] [address] Pharmacist Pharmacist 05/25/24 Joya Lira [facility] [address] [place] [address] Assigned MTM Pharmacist 06/08/24 Fabi Coates MD [address] [place] [address] Genetics, Clinical 06/18/24 Danna Cardenas PA-C [address] [place] [address] Assigned Heart and Vascular Provider 07/08/24 Arthur Salas LICSW [address] [address] Assigned Behavioral Health Provider 08/08/24 Randy Maradiaga DO [address] [place] [address] Assigned Neuroscience Provider 08/08/24 documented as of this encounter
--- OUTSIDE RECORDS SUMMARY | 2024-09-20 19:20 | XMS_ITS | Encounter Summary ---
Author Organization [employer] Address [address] [place] [address] Care Team Providers Care Business Professor Name Role Phone Winston Villatoro OD Unavailable [phone] Denise Woodson APRN BOX WORKER Unavailable [phone] Denise Woodson APRN BOX WORKER Primary Care Provider Usha Simon APRN BOX WORKER Unavailable Dangelo Salinas MD Unavailable Anastasia Stearns RN Unavailable [phone] Germaine Lopez [facility] Unavailable Joya Lira [facility] Unavailable Joya Lira [facility] Unavailable Fabi Coates MD Unavailable [phone] Danna CardenasC Unavailable [phone] Arthur Salas SERVICE TECH/WELDER Unavailable [phone] Randy Maradiaga DO Unavailable + Encounter Details Date Type Department Care Team (Late st Contact Info) Description 09/04/2024 [facility] [address] [address] Wood, Qing Social History Tobacco [...] often do you attend jehovah's witness or buddhist serv ices? 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 Not on file Not on file Not on file Not on file Not on file Not on file documented as of this encounter Plan of Treatment Upcoming Encounters Date Type Department Care Team (Late st Contact Info) Description 09/25/2024 11:00 AM REGISTERED ACCOUNT ADMINISTRATOR Office Visit [facility] [address] [facility] [address] Denise Woodson APRN BOX WORKER [address] [place] [place] [address] 09/29/2024 9:00 AM REGISTERED ACCOUNT ADMINISTRATOR Virtual Visit [facility] Neurology [place] 7[address]169 [facility] 3rd [place] [phone] Randy Maradiaga, [address] [address] 10/09/2024 1:20 PM REGISTERED ACCOUNT ADMINISTRATOR Office Visit [facility] Heart [facility] 6405 [facility] [address] [place] [phone] Danna Cardenas PA-C 6405 [place], [place] 420675 10/15/2024 11:00 AM REGISTERED ACCOUNT ADMINISTRATOR Office Visit [facility] [address] [place] [phone] Denise Woodson APRN [facility] [address] [place], [place] 4467668 10/30/2024 4:00 PM REGISTERED ACCOUNT ADMINISTRATOR Virtual Visit [facility] Vascular [facility] [address] [place] [phone] Lisa Zambrano MD [address] [place] [address] 12/29/2024 12:45 PM CDT Office Visit [facility] [address] [place] [address] Ave [address] [phone] Fabi Coates MD 420 [facility] 75 [place], [place] 5364[address] 12/29/2024 1:45 PM CDT Office Visit [facility] [address] [place] [address] Ave [address] [phone] Fabi Coates MD [address] [facility] 75 [place], [place] [address]375[address] 06/01/2025 11:15 AM CDT Appointment [facility] Imaging [address] [place] [phone] Robin Zepeda MD [address] [place] [address] 06/04/2025 11:00 AM CDT Office Visit [facility] Neurosurgery Clinic [address] 3rd [place] [phone] Robin Zepeda MD [address] [place] [address] Usha Simon APRN [address] 856965 documented as of this encounter Goals Goal Patient Goal Type Associated Problems Recent Progress Patient-Stated? Author I would like additional resources and support to manage my health and prevent future avoidable ED visits/hospital admissions Care Plan Increased risk of re-admission 40%( 4 3:02 PM REGISTERED ACCOUNT ADMINISTRATOR) Anastasia Talamantes, RN Note: Barriers: diagnosis of multiple, chronic, complex medical conditions, provider availability - wait time to complete appointments, etc. Strengths: motivated, engaged in care coordination Patient expressed understanding of goal: yes Action steps to achieve this goal: 1. I will follow up with my providers as scheduled/recommended - Pulmonology: TBD - Mental Health weekly - PT, OT and LAWN SPRINKLER SERVICER, continuing through [facility] [place]: - PCP: 09/18/2024 & 10/15/2024. - Vascular [...] clinic with 24/7 after hours services available. Imaging Account Manager will remain available as needed. documented as of this encounter Visit Diagnoses Not on filedocumented in this encounter Additional Health Concerns Active Problems Noted Date Diagnosed Date Increased risk of re-admission 02/18/2024 Infection Onset Date Last Indicated Resolved Time Rule Out COVID-19 09/13/2024 09/13/2024 09/13/2024 12:31 PM REGISTERED ACCOUNT ADMINISTRATOR Assessment Noted Time PHQ-9 Depression Total Score: 5 08/03/20 12:49 PM REGISTERED ACCOUNT ADMINISTRATOR documented as of this encounter Care Teams Business Professor Relationship Specialty Start Date End Date Winston Villatoro OD [facility] [place] [address] [place] [address] PCP - Ophthalmology Ophthalmology 02/11/13 Denise Woodson APRN BOX WORKER [address] [place] [address] PCP - General Family Practice 09/21/20 Denise Woodson APRN BOX WORKER [address] [place] [address] Assigned PCP 07/17/20 Usha Simon APRN BOX WORKER [address] [id number] [place] [address] Nurse Practitioner Neurological Surgery 01/24/24 Dangelo Salinas MD [address] [place] [address] Neurology 01/27/24 Anastasia Stearns, RN Lead Imaging Account Manager 02/06/24 Germaine Lopez, [facility] Community Health Worker Primary Care - CC 02/18/24 Joya Lira RPH [address] [address] Pharmacist Pharmacist 05/25/24 Joya Lira RPH [address] [place] [address] Assigned MTM Pharmacist 06/08/24 Fabi Coates MD [address] [place] [address] 75 [place] [address] Genetics, Clinical 06/18/24 Danna Cardenas PA-C 6405 [place] [address] Assigned Heart and Vascular Provider 07/08/24 Arthur Salas SERVICE TECH/WELDER [address] [address] Assigned Behavioral Health Provider 08/08/24 Randy Maradiaga DO 909 [place] [address] Assigned Neuroscience Provider 08/08/24 documented as of this encounter
--- OUTSIDE RECORDS SUMMARY | 2024-09-20 19:20 | XMS_ITS | Encounter Summary ---
Author Organization [employer] Address [address] [place] [address] Care Team Providers Care Dimension Quarry Supervisor Name Role Phone Winston Villatoro OD Unavailable [phone] Denise Woodson APRN PRINT DECORATOR Unavailable [phone] Denise Woodson APRN PRINT DECORATOR Primary Care Provider Usha Simon APRN PRINT DECORATOR Unavailable + [phone] Dangelo Salinas MD Unavailable Anastasia Stearns RN Unavailable Germaine Lopez [facility] Unavailable Joya Lira [facility] Unavailable Joya Lira [facility] Unavailable Fabi Coates MD Unavailable [phone] Danna CardenasC Unavailable [phone] Arthur Salas MANAGER SOCIAL RESPONSIBILITY Unavailable [phone] Randy Maradiaga DO Unavailable + Reason for Visit * Reason Comments Medication Refill Encounter Details Date Type Department Care Team (Late st Contact Info) Description 09/02/[address] [address] Denise WoodsonBARRERA PRINT DECORATOR [address] [place] [address] Medication Refill Social History Tobacco Use Types [...] How often do you attend moravian or sabianism serv ices? Never 02/28/2024 Do [...] PHQ-2 Score 2 08/04/2024 [facility] - Occupational [...] on file Legal Sex Female 4:05 AM BIG DATA ANALYTICS LEAD Gender Identity Not on file Sexual [...] st Contact Info) Description 09/25/2024 11:00 AM BIG DATA ANALYTICS LEAD Office Visit [facility] [address] [place] [address] Denise Woodson APRN CNP [address] [place] [address] 09/29/2024 9:00 AM BIG DATA ANALYTICS LEAD Virtual Visit [facility] Neurology [address] 3rd [place] [phone] Randy Maradiaga, [address] [address] 10/09/2024 1:20 PM BIG DATA ANALYTICS LEAD Office Visit [facility] Heart [facility] 6405 [facility] [address] [place] [address] Danna Cardenas PA-C 6405 [place], [place] 531475 10/15/2024 11:00 AM BIG DATA ANALYTICS LEAD Office Visit [facility] [address] [place] [phone] Chintan Denise, MANAGER ENVIRONMENTAL AFFAIRS PRINT DECORATOR [address] [place] [address] 10/30/2024 4:00 PM BIG DATA ANALYTICS LEAD Virtual Visit [facility] Vascular [facility] [address] [place] [phone] Lisa Zambrano MD [address] [place] [address] 12/29/2024 12:45 PM CDT Office Visit [facility] [address] [facility] [address] Fl[address],[place] [address] Fabi Coates MD 420 [facility] 75 [place], [place] [address]64[address] 12/29/2024 1:45 PM CDT Office Visit [facility] 2450 [facility] Explorer [facility] 12th Flr,[place] [address] Fabi Coates MD 420 [facility] 75 [place] [address] 06/01/2025 11:15 AM CDT Appointment [facility] Imaging [address] [place] [phone] Robin Zepeda MD [address] [place] [address] 785685 06/04/2025 11:00 AM CDT Office Visit [facility] Neurosurgery [facility] [address] [place] [address] 3rd [place] [phone] Robin Zepeda MD [address] [place] [address] Usha Simon APRN [facility] [address] documented as of this encounter Goals Goal Patient Goal Type Associated Problems Recent Progress Patient-Stated? Author I would like additional resources and support to manage my health and prevent future avoidable ED visits/hospital admissions Care Plan Increased risk of re-admission 40%( 4 3:02 PM BIG DATA ANALYTICS LEAD) No Anastasia Stearns, RN Note: Barriers: diagnosis of multiple, chronic, complex medical conditions, provider availability - wait time to complete appointments, etc. Strengths: motivated, engaged in care coordination Patient expressed understanding of goal: yes Action steps to achieve this goal: 1. I will follow up with my providers as scheduled/recommended - Pulmonology: TBD - Mental Health weekly - PT, OT and BENCH WORKER HOLLOW HANDLE, continuing through [facility] [place]: - PCP: 09/18/2024 & 10/15/2024. - Vascular [...] clinic with 24/ after hours services available. Grocery Stock Clerk will remain available as needed. documented as of this encounter Visit Diagnoses Diagnosis Cerebrovascular accident (CVA), unspecified mechanism (H)- Primary documented in this encounter Additional Health Concerns Active Problems Noted Date Diagnosed Date Increased risk of re-admission 02/18/2024 Assessment Noted Time PHQ-9 Depression Total Score: 5 08/03/20 24 12:49 PM BIG DATA ANALYTICS LEAD documented as of this encounter Care Teams Dimension Quarry Supervisor Relationship Specialty Start Date End Date Winston Villatoro OD [facility] 701 [facility] [address] [place] [address] PCP - Ophthalmology Ophthalmology 02/11/13 Denise Woodson APRN PRINT DECORATOR [address] [place] [address] PCP - General Family Practice 09/21/20 Denise Woodson APRN PRINT DECORATOR [address] [place] [address] Assigned PCP 07/17/20 Usha Simon APRN PRINT DECORATOR 909 [facility]2121[place], [place] [address] Nurse Practitioner Neurological Surgery 01/24/24 Dangelo Salinas MD [address] [place] [address] Neurology 01/27/24 Anastasia Stearns, RN Lead Grocery Stock Clerk 02/06/24 Germaine Lopez, W Community Health Worker Primary Care - CC 02/18/24 Joya Lira [facility] [address] [place], [place] [phone] Pharmacist Pharmacist 05/25/24 Joya Lira [facility] [address] [place] [address] Assigned MTM Pharmacist 06/08/24 Fabi Coates MD 420 [facility] 75 [place], [place] [address] Genetics, Clinical 06/18/24 Danna Cardenas PA-C 6405 [place] [address] Assigned Heart and Vascular Provider 07/08/24 Arthur Salas MANAGER SOCIAL RESPONSIBILITY [address] [place], [place] [phone] Assigned Behavioral Health Provider 08/08/24 Randy Maradiaga DO 909 [place] [address] Assigned Neuroscience Provider 08/08/24 documented as of this encounter
--- OUTSIDE RECORDS SUMMARY | 2024-09-20 19:21 | XMS_ITS | Encounter Summary ---
Author Organization [employer] Address [address] [place] [address] Care Team Providers Care Tree Care Foreman Name Role Phone Winston Villatoro OD Unavailable [phone] Denise Woodson APRN FOOD SERVICE TRAY ATTENDANT Unavailable [phone] Denise Woodson APRN [facility] Primary Care Provider Usha Simon APRN [facility] Unavailable [phone] Dangelo Salinas MD Unavailable Anastasia Stearns RN Unavailable Germaine Lopez [facility] Unavailable Joya Lira [facility] Unavailable [phone] Joya Lira [facility] Unavailable [phone] Fabi Coates MD Unavailable [phone] Robin Catalan MD Unavailable [phone] Danna Cardenas PA-C Unavailable [phone] Encounter Details Date Type Department Care Team [...] How often do you attend restorationist or jewish serv ices? Never 02/28/2024 Do [...] Answer Date Recorded PHQ-2 Score 2 08/04/2024 [facility] ional [facility] - [...] on file Legal Sex Female 4:05 AM BAKING FACTORY WORKER Gender Identity Not on file Sexual [...] st Contact Info) Description 09/25/2024 11:00 AM BAKING FACTORY WORKER Office Visit [facility] [address] [place] [phone] Denise Woodson APRN [facility] [address] [place], [place] [address] 09/29/2024 9:00 AM BAKING FACTORY WORKER Virtual Visit [facility] Neurology Clinic [address]rd [place] [address] Randy Maradiaga, [address] [place] [address] 10/09/2024 1:20 PM BAKING FACTORY WORKER Office [facility] 6405 [facility] [address] [place] [phone] Danna Cardenas PA-C 6405 [place], [place] 838575 10/15/2024 11:00 AM BAKING FACTORY WORKER [facility] [address] [place] [phone] Denise Woosdon APRN FOOD SERVICE TRAY ATTENDANT [address] [place], [place] 2361668 10/30/2024 4:00 PM BAKING FACTORY WORKER Virtual Visit [facility] Vascular [facility] [address] [place] [phone] Lisa Zambrano MD [address] [place], [place] [address] 12/29/2024 12:45 PM CDT Office Visit [facility]ty Clinic [address] [place] [address] [phone] Fabi Coates MD [address] [place] [address] 12/29/2024 1:45 PM CDT Office Visit [facility]ty Clinic [address] [place] [phone] Fabi Coates MD [address] [place] [address] 06/01/2025 11:15 AM CDT Appointment [facility] Imaging [address] [place] [phone] Robin Zepeda MD [address] [place] [address] 06/04/2025 11:00 AM CDT Office Visit [facility] Neurosurgery Clinic [address] 3rd [place] [address] Robin Zepeda MD [address] [place] [address] Usha Simon APRN FOOD SERVICE TRAY ATTENDANT [address] [place] [address]67[address] documented as of this encounter Goals Goal Patient Goal Type Associated Problems Recent Progress Patient-Stated? Author I would like additional resources and support to manage my health and prevent future avoidable ED visits/hospital admissions Care Plan Increased risk of re-admission 40%( 4 3:02 PM BAKING FACTORY WORKER) Anastasia Talamantes, RN Note: Barriers: diagnosis of multiple, chronic, complex medical conditions, provider availability - wait time to complete appointments, etc. Strengths: motivated, engaged in care coordination Patient expressed understanding of goal: yes Action steps to achieve this goal: 1. I will follow up with my providers as scheduled/recommended - Pulmonology: TBD - Mental Health weekly - PT, OT and SENIOR ABAP DEVELOPER, continuing through [facility] [place]: - PCP: 09/18/2024 & 10/15/2024. - Vascular [...] with 24/7 after hours services available. Medical Claims Analyst will remain available as needed. documented as of this encounter Visit Diagnoses Not on filedocumented in this encounter Additional Health Concerns Active Problems Noted Date Diagnosed Date Increased risk of re-admission 02/18/2024 Assessment Noted Time PHQ-9 Depression Total Score: 5 08/03/20 24 12:49 PM BAKING FACTORY WORKER documented as of this encounter Care Teams Tree Care Foreman Relationship Specialty Start Date End Date Winston Villatoro OD [facility] 701 [facility] [address] [place] [address] PCP - Ophthalmology Ophthalmology 02/11/13 Denise Woodson APRN FOOD SERVICE TRAY ATTENDANT [address] [address] [place] [address] PCP - General Family Practice 09/21/20 Denise Woodson APRN FOOD SERVICE TRAY ATTENDANT [address] [place] [address] Assigned PCP 07/17/20 Usha Simon APRN FOOD SERVICE TRAY ATTENDANT 909 [facility] [place]18[place] [address] Nurse Practitioner Neurological Surgery 01/24/24 Dangelo Salinas MD [address] [facility] 200 [place], [place] [phone] Neurology 01/27/24 Anastasia Stearns, RN Lead Medical Claims Analyst 02/06/24 Germaine Lopez, W Community Health Worker Primary Care - CC 02/18/24 Joya Lira [facility] [address] [place] [address] Pharmacist Pharmacist 05/25/24 Joya Lira [facility] [address] [place] [address] Assigned MTM Pharmacist 06/08/24 Fabi Coates MD 420 [facility] 75 [place], [place] 5[address] Genetics, Clinical 06/18/24 Robin Zepeda MD 909 [facility] [id number] [place] [address] Assigned Neuroscience Provider 07/08/24 08/07/24 Danna Cardenas PA-C [address] [place] [address] Assigned Heart and Vascular Provider 07/08/24 documented as of this encounter
--- OUTSIDE RECORDS SUMMARY | 2024-09-20 19:21 | XMS_ITS | Encounter Summary ---
Author Organization [facility] Address [address] [place] [address] Care Team Providers Care Public Health Registrar Name Role Phone Winston Villatoro OD Unavailable [phone] Denise Woodson APRN PAYMENT REP Unavailable [phone] Denise Woodson APRN PAYMENT REP Primary Care Provider Usha Simon APRN PAYMENT REP Unavailable [phone] Dangelo Salinas MD Unavailable Anastasia Stearns RN Unavailable Germaine Lopez [facility] Unavailable [phone] Joya Lira [facility] Unavailable Joya Lira [facility] Unavailable Fabi Coates MD Unavailable [phone] Robin Catalan MD Unavailable Danna Cardenas PA-C Unavailable [phone] Arthur Salas Unavailable [phone] Randy Maradiaga DO Unavailable + Encounter Details Date Type Department Care Team (Late st Contact Info) Description 08/01/2024 [facility] Neurology [address]rd [place] [address] Laronfortunato Randy Yobany, DO 909 [place] [address] Social History Tobacco Use Types [...] attend anabaptism or congregational serv ices? Never 02/28/2024 Do [...] Answer Date Recorded PHQ-2 Score 2 08/04/2024 [facility] of Occupat ional Health [...] on file Legal Sex Female 4:05 AM WOOD SHOP TEACHER Gender Identity Not on file Sexual [...] st Contact Info) Description 09/25/2024 11:00 AM WOOD SHOP TEACHER Office Visit [address] [address] Denise Woodson, BARRERA PAYMENT REP [address] [place] [address] 09/29/2024 9:00 AM WOOD SHOP TEACHER Virtual Visit [facility] Neurology [facility] 909 [facility] 3rd [place] [address] Randy Maradiaga, [address] [place] [address] 10/09/2024 1:20 PM WOOD SHOP TEACHER Office Visit [facility] Heart [facility] 6405 [facility] [address] [place] [address] Danna Cardenas PA-C 6405 [place], [place] 5[address] 10/15/2024 11:00 AM WOOD SHOP TEACHER [facility] [address] [place] [phone] Denise Woodson, BARRERA PAYMENT REP [address] [place] [address] 10/30/2024 4:00 PM WOOD SHOP TEACHER Virtual Visit [facility] [place] [address] [place] [phone] Lisa Zambrano MD [address] [place] [address] 12/29/2024 12:45 PM CDT Office Visit [facility] [address] [facility] 12th Flr,[place] [address] Fabi Coates MD 420 [facility] 75 [place], [place] [address] 12/29/2024 1:45 PM CDT Office Visit [facility] 2450 [facility] 12[facility] Flr,[place] [address] Fabi Coates MD 420 [facility] 75 [place] [address] 06/01/2025 11:15 AM CDT Appointment [facility] Imaging [address] [place] [address] Robin Zepeda MD [address] [place] [address] 06/04/2025 11:00 AM CDT Office Visit [facility] Neurosurgery [address] 3rd [place] [address] Robin Zepeda MD [address] [place] [address] Usha Simon APRN [address] [address] documented as of this encounter Goals Goal Patient Goal Type Associated Problems Recent Progress Patient-Stated? Author I would like additional resources and support to manage my health and prevent future avoidable ED visits/hospital admissions Care Plan Increased risk of re-admission 40%( 4 3:02 PM WOOD SHOP TEACHER) No Anastasia Stearns, RN Note: Barriers: diagnosis of multiple, chronic, complex medical conditions, provider availability - wait time to complete appointments, etc. Strengths: motivated, engaged in care coordination Patient expressed understanding of goal: yes Action steps to achieve this goal: 1. I will follow up with my providers as scheduled/recommended - Pulmonology: TBD - Mental Health weekly - PT, OT and GRADES 7 AND 8 TEACHER, continuing through [facility] [place]: - PCP: 09/18/2024 & 10/15/2024. - Vascular [...] clinic with 24/7 after hours services available. Hoist Operator will remain available as needed. documented as of this encounter Visit Diagnoses Not on filedocumented in this encounter Additional Health Concerns Active Problems Noted Date Diagnosed Date Increased risk of re-admission 02/18/2024 Infection Onset Date Last Indicated Resolved Time Rule Out COVID-19 09/13/2024 09/13/2024 09/13/2024 12:31 PM WOOD SHOP TEACHER Assessment Noted Time PHQ-9 Depression Total Score: 14 024 11:46 AM CDT documented as of this encounter Care Teams Public Health Registrar Relationship Specialty Start Date End Date Winston Villatoro OD [facility] [place] [address] [place] [address] PCP - Ophthalmology Ophthalmology 02/11/13 Denise Woodson APRN PAYMENT REP [id number] [address] [address] PCP - General Family Practice 09/21/20 Denise Woodson APRN PAYMENT REP [id number] [place] [place] [address] Assigned PCP 07/17/20 Usha Simon APRN PAYMENT REP 909 [facility]121[address] [place] [address] Nurse Practitioner Neurological Surgery 01/24/24 Dangelo Salinas MD [address] [facility] [address] [place] [address] Neurology 01/27/24 Anastasia Stearns, RN Lead Hoist Operator 02/06/24 Germaine Lopez, W Community Health Worker Primary Care - CC 02/18/24 Joya Lira RPH [address] [address] Pharmacist Pharmacist 05/25/24 Joya Lira Joleen [address] [place] [address] Assigned MTM Pharmacist 06/08/24 Fabi Coates MD [address] [place] [address] 75 [place] [address] Genetics, Clinical 06/18/24 Robin Zepeda MD [address]09 [place], [place] [address] Assigned Neuroscience Provider 07/08/24 08/07/24 Danna Cardenas PA-C 6405 [place] [address] Assigned Heart and Vascular Provider 07/08/24 Arthur Salas BEN DAY ARTIST [address] [place] [address] Assigned Behavioral Health Provider 08/08/24 Randy Maradiaga DO [address] [place] [address] Assigned Neuroscience Provider 08/08/24 documented as of this encounter
--- OUTSIDE RECORDS SUMMARY | 2024-09-20 19:21 | XMS_ITS | Encounter Summary ---
Author Organization [place] Address [address] [place] [address] Care Team Providers Care Roll Shop Supervisor Name Role Phone Winston Villatoro OD Unavailable Denise Woodson APRN POWER SCREWDRIVER OPERATOR Unavailable [phone] Denise Woodson APRN POWER SCREWDRIVER OPERATOR Primary Care Provider Usha Simon APRN [facility] Unavailable [phone] Dangelo Salinas MD Unavailable Anastasia Stearns RN Unavailable [phone] Germaine Lopez [facility] Unavailable Joya Lira [facility] Unavailable Joya Lira [facility] Unavailable Fabi Coates MD Unavailable [phone] Robin Zepeda MD Unavailable [phone] Danna Cardenas PA-C Unavailable Felicita Desai RN Unavailable Unavailab Arthur Rios Unavailable [phone] Randy Maradiaga DO Unavailable + Reason for Visit * Reason Onset Date Comments Appointment 07/14/2024 Seizure-like act ivity (H) R sided numbness/tinglinfg Encounter Details Date Type Department Care Team (Late st Contact Info) Description 07/14/[address] [facility] Neurology Clinic [address] [place] [address] None Appointment (Seizure-like activity (H) [...] How often do you attend mandaeism or taoism serv ices? Never 02/28/2024 Do [...] Answer Date Recorded PHQ-2 Score 4 07/16/2024 [facility] of Occupat ional Health - Occupational Stress [...] on file Legal Sex Female 4:05 AM WARDROBE SUPERVISOR Gender Identity Not on file Sexual [...] Pt is already a ptof Dr. Maradiaga, information writer unsure if the pt should be scheduled for the Seizure-like activity withMNCEP or continue with Dr. Maradiaga? Please call [facility] at [phone] for scheduling. Action Taken: Message routed to: [facility] Neurology Travel Screening: Not Applicable Date of Service: documented in this encounter Plan of Treatment Upcoming Encounters Date Type Department Care Team (Late st Contact Info) Description 09/25/2024 11:00 AM WARDROBE SUPERVISOR Office Visit [facility] [address] [place] [address] Denise Woodson APRN POWER SCREWDRIVER OPERATOR [address] [place], [place] 84[address] 09/29/2024 9:00 AM WARDROBE SUPERVISOR Virtual Visit [facility] Neurology Clinic [address] [phone] Randy Maradiaga, [address] [place] [address] 10/09/2024 1:20 PM WARDROBE SUPERVISOR Office Visit [facility] Heart [facility] 6405 [facility] [address] [place] [phone] Danna Cardenas PA-C 6405 [place], [place] [address] 10/15/2024 11:00 AM WARDROBE SUPERVISOR Office Visit [facility] [address] [place] [phone] Denise Woodson APRN POWER SCREWDRIVER OPERATOR [address] [place] [address] 10/30/2024 4:00 PM WARDROBE SUPERVISOR Virtual Visit [facility] Vascular Clinic [place] [address] [place] [address] Lisa Zambrano MD [address] [place] [address] 12/29/2024 12:45 PM CDT Office Visit [facility] [address] [place], [place] [address] Explorer [address] [phone] Fabi Coates MD [address] [place] [address] 29[address] 12/29/2024 1:45 PM CDT Office Visit [facility] Pediatric Specialty Clinic [address] [place], [place] [address] [address] [phone] Fabi Coates MD [address] [place] [address] 06/01/2025 11:15 AM CDT Appointment [facility] Imaging [address] [facility] [address] [place] [address] Robin Zepeda MD [address] [place] [address] 06/04/2025 11:00 AM CDT Office Visit [facility] Neurosurgery [address] 3rd [place] [address] Robin Zepeda MD [address] [place] [address] Usha Simon APRN [facility] 909 [facility] NN9331TA [place] [address] documented as of this encounter Goals Goal Patient Goal Type Associated Problems Recent Progress Patient-Stated? Author I would like additional resources and support to manage my health and prevent future avoidable ED visits/hospital admissions Care Plan Increased risk of re-admission 40%( 3:02 PM WARDROBE SUPERVISOR) Anastasia Talamantes, RN Note: Barriers: diagnosis of multiple, chronic, complex medical conditions, provider availability - wait time to complete appointments, etc. Strengths: motivated, engaged in care coordination Patient expressed understanding of goal: yes Action steps to achieve this goal: 1. I will follow up with my providers as scheduled/recommended - Pulmonology: TBD - Mental Health weekly - PT, OT and STUDENT ADVISOR, continuing through [facility] [place]: - PCP: 09/18/2024 & 10/15/2024. - Vascular [...] clinic with 24/7 after hours services available. Transit Survey Worker will remain available as needed. documented as of this encounter Visit Diagnoses Not on filedocumented in this encounter Additional Health Concerns Active Problems Noted Date Diagnosed Date Increased risk of re-admission 02/18/2024 Infection Onset Date Last Indicated Resolved Time Rule Out COVID-19 09/13/2024 09/13/2024 09/13/2024 12:31 PM WARDROBE SUPERVISOR Assessment Noted Time PHQ-9 Depression Total Score: 5 03/17/20 24 9:45 AM CDT documented as of this encounter Care Teams Roll Shop Supervisor Relationship Specialty Start Date End Date Winston Villatoro OD [facility] [address] [place] [address] PCP - Ophthalmology Ophthalmology 02/11/13 Denise Woodson APRN POWER SCREWDRIVER OPERATOR [address] [place] [address] PCP - General Family Practice 09/21/20 Denise Woodson APRN POWER SCREWDRIVER OPERATOR [address] [place] [address] Assigned PCP 07/17/20 Usha Simon APRN POWER SCREWDRIVER OPERATOR [address] [place] [address] [address] Nurse Practitioner Neurological Surgery 01/24/24 Dangelo Salinas MD [address] [place] [address] Neurology 01/27/24 Anastasia Stearns, RN Lead Transit Survey Worker 02/06/24 Germaine Lopez, W Community Health Worker Primary Care - CC 02/18/24 Joya Lira RPH [address] [place], [place] [phone] Pharmacist Pharmacist 05/25/24 Joya Lira RPH [address] [place], [place] [address] Assigned MTM Pharmacist 06/08/24 Fabi Coates MD 420 [facility] 75 [place] [address] Genetics, Clinical 06/18/24 Robin Zepeda MD 909 [facility] MU8099HP [place] [address] Assigned Neuroscience Provider 07/08/24 08/07/24 Danna Cardenas PA-C 6405 [place] [address] Assigned Heart and Vascular Provider 07/08/24 Felicita Desai RN Lead Transit Survey Worker 07/14/24 07/28/24 Arthur Salas [facility] [address] [place] [address] Assigned Behavioral Health Provider 08/08/24 Randy Maradiaga DO [address] [place] [address] Assigned Neuroscience Provider 08/08/24 documented as of this encounter
--- OUTSIDE RECORDS SUMMARY | 2024-09-20 19:21 | XMS_ITS | Encounter Summary ---
Author Organization [place] Address [address] [place] [address] Care Team Providers Care Assistant Editor Name Role Phone Winston Villatroo OD Unavailable [phone] Denise Woodson APRN REAL ESTATE PROFESSIONAL Unavailable [phone] Denise Woodson APRN REAL ESTATE PROFESSIONAL Primary Care Provider Usha Simon APRN REAL ESTATE PROFESSIONAL Unavailable + [phone] Dangelo Salinas MD Unavailable Anastasia Stearns RN Unavailable Germaine Lopez [facility] Unavailable [phone] Lisa Zambrano MD Unavailable + [phone] Raul Hoyos MD Unavailable Joya Lira [facility] Unavailable [phone] Joya Lira [facility] Unavailable [phone] Fabi Coates MD Unavailable [phone] Robin Catalan MD Unavailable [phone] Danna Cardenas PA-C Unavailable [phone] Felicita Desai RN Unavailable Unavailab Arthur Rios Unavailable [phone] Randy Maradiaga DO Unavailable + Encounter Details Date Type Department Care Team (Late st Contact Info) Description 06/28/2024 MyC Medical Advice [facility] [address] [place] [address] Denise Woodson APRN REAL ESTATE PROFESSIONAL [address] [place] [address] Social History Tobacco Use Types [...] How often do you attend yarsanism or zoroastrian serv ices? 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 Pt responded and would like to trial celexa again at a low dose. Pharmacy T'd up. CHELSEY Luke, RN [facility] 07/02/2024 at 9:48 AM * Telephone Encounter [...] to provider to advise. Qing Copeland Lead Manager [facility] documented in this encounter Plan of Treatment Upcoming Encounters Date Type Department Care Team (Late st Contact Info) Description 09/25/2024 11:00 AM LIMB DRIVER Office Visit [facility] [address] [place] [address] Denise Woodson APRN REAL ESTATE PROFESSIONAL [address] [place], [place] [id number] 09/29/2024 9:00 AM LIMB DRIVER Virtual Visit [facility] Neurology [address] 3rd [place] [address] Randy Maradiaga, DO 909 [place] [address] 10/09/2024 1:20 PM LIMB DRIVER Office Visit [facility] Heart [facility] 6[address] [facility] [address] [place] [phone] Danna Cardenas PA-C 6405 [place], [place] [address] 10/15/2024 11:00 AM LIMB DRIVER Office Visit [facility] [address] [place] [address] Denise Woodson APRN REAL ESTATE PROFESSIONAL [address] [place], [place] [phone] 10/30/2024 4:00 PM LIMB DRIVER Virtual Visit [facility] Vascular Clinic [place] [address] [place] [address] Lisa Zambrano MD [address] [place], [place] [address] 12/29/2024 12:45 PM CDT Office Visit [facility] [address] [place], [place] [address] Explorer [address] [phone] Fabi Coates MD [address] [address] 12/29/2024 1:45 PM CDT Office Visit [facility] Pediatric Specialty Clinic [address] [place], [place] [address] Explorer [address] [phone] Fabi Coates MD 420 [facility] 75 [place], [place] [address] 06/01/2025 11:15 AM CDT Appointment [facility] Specialty Care Center Imaging [address] [place] [address] [place] [phone] Robin Zepeda MD [address] [place] [address] 06/04/2025 11:00 AM CDT Office Visit [facility] Neurosurgery Clinic [address] 3rd [place] [address] Robin Zepeda MD [address] [place] [address] [id number] Usha Simon APRN REAL ESTATE PROFESSIONAL [address] [place] [address]22725 documented as of this encounter Goals Goal Patient Goal Type Associated Problems Recent Progress Patient-Stated? Author I would like additional resources and support to manage my health and prevent future avoidable ED visits/hospital admissions Care Plan Increased risk of re-admission 40%( 4 3:02 PM LIMB DRIVER) Anastasia Talamantes, RN Note: Barriers: diagnosis of multiple, chronic, complex medical conditions, provider availability - wait time to complete appointments, etc. Strengths: motivated, engaged in care coordination Patient expressed understanding of goal: yes Action steps to achieve this goal: 1. I will follow up with my providers as scheduled/recommended - Pulmonology: TBD - Mental Health weekly - PT, OT and PATIENT CLERICAL ASSISTANT, continuing through [facility] [place]: - PCP: 09/18/2024 & 10/15/2024. - [...] clinic with 24/7 after hours services available. Take Down Inspector will remain available as needed. documented as of this encounter Visit Diagnoses Not on filedocumented in this encounter Additional Health Concerns Active Problems Noted Date Diagnosed Date Increased risk of re-admission 02/18/2024 Infection Onset Date Last Indicated Resolved Time Rule Out COVID-19 09/13/2024 09/13/2024 09/13/2024 12:31 PM LIMB DRIVER Assessment Noted Time PHQ-9 Depression Total Score: 5 03/17/20 24 9:45 AM CDT documented as of this encounter Care Teams Assistant Editor Relationship Specialty Start Date End Date Winston Villatoro OD [facility] 701 [facility] [address] [place] [address] PCP - Ophthalmology Ophthalmology 02/11/13 Denise Woodson APRN REAL ESTATE PROFESSIONAL [address] [place] [address] PCP - General Family Practice 09/21/20 Denise Woodson APRN REAL ESTATE PROFESSIONAL [address] [place] [address] Assigned PCP 07/17/20 Usha Simon APRN REAL ESTATE PROFESSIONAL 909 [facility] [place], [place] [address] Nurse Practitioner Neurological Surgery 01/24/24 Dangelo Salinas MD [address] [place] [address] Neurology 01/27/24 Anastasia Stearns, RN Lead Take Down Inspector 02/06/24 Germaine Lopez, W Community Health Worker Primary Care - CC 02/18/24 Lisa Zambrano MD 6405 [facility] [address] [place], [place] [address] Assigned Heart and Vascular Provider 05/08/24 07/07/24 Raul Hoyos MD [address] [place] [address]45 Assigned Neuroscience Provider 05/08/24 07/07/24 Joya Lira [facility] [address] [place] [address] Pharmacist Pharmacist 05/25/24 Joya Lira [facility] [address] [place], [place] [phone] Assigned MTM Pharmacist 06/08/24 Fabi Coates MD [address] [place] [address] 75 [place], [place] 9[address]25 Genetics, Clinical 06/18/24 Robin Zepeda MD [address] [place] [address] Assigned Neuroscience Provider 07/08/24 08/07/24 Danna Cardenas PA-C 6[address] [place], [place] 222785 Assigned Heart and Vascular Provider 07/08/24 Felicita Desai, RN Lead Take Down Inspector 07/14/24 07/28/24 Arthur Salas [facility] [address] [address] Assigned Behavioral Health Provider 08/08/24 Randy Maradiaga DO [address] [place] [address] Assigned Neuroscience Provider 08/08/24 documented as of this encounter
--- OUTSIDE RECORDS SUMMARY | 2024-09-20 19:21 | XMS_ITS | Encounter Summary ---
Author Organization [facility] Address [address] [place] [address] Care Team Providers Care Farm Mechanic Name Role Phone Winston Villatoro OD Unavailable [phone] Denise Woodson APRN TOILET ATTENDANT Unavailable [phone] Denise Woodson APRN TOILET ATTENDANT Primary Care Provider Usha Simon APRN TOILET ATTENDANT Unavailable [phone] Dangelo Salinas MD Unavailable Anastasia Stearns RN Unavailable Germaine Lopez [facility] Unavailable Joya Lira [facility] Unavailable Joya Lira [facility] Unavailable Fabi Coates MD Unavailable [phone] Robin Catalan MD Unavailable [phone] Danna Cardenas PA-C Unavailable [phone] Encounter Details Date Type Department Care Team (Late st Contact Info) Description 08/06/2024 [facility] [address] [place] [address] Denise Woodson APRN TOILET ATTENDANT [address] [place] [address] Social History Tobacco Use Types [...] Answer Date Recorded PHQ-2 Score 2 08/04/2024 [facility] - Occupational Stress Questionnaire Answer [...] on file Legal Sex Female 4:05 AM STAGE RIGGER Gender Identity Not on file Sexual Orientation Not on file 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 Faxed and sent to patient. Qing Cardona Lead Signal Wirer [facility] Phoebe Gross E RIGGER * Telephone Encounter - Qing Copeland - 08/06/2024 1:56 PM CST Routing to provider as FYI. Form in provider's In Basket. Qing Copeland Lead Signal [facility] documented in this encounter Plan of Treatment Upcoming Encounters Date Type Department Care Team (Late st Contact Info) Description 09/25/2024 11:00 AM STAGE RIGGER Office Visit [facility] [address] [place] [phone] Denise Woodson, BARRERA TOILET ATTENDANT [address] [place], [place] [address] 09/29/2024 9:00 AM STAGE RIGGER Virtual Visit [facility] Neurology [address] [phone] Randy Maradiaga, [address] [address] 10/09/2024 1:20 PM STAGE RIGGER Office Visit [facility] 6405 [facility] [address] [place] [phone] Danna Cardenas PA-C 6403 [place] [address] 10/15/2024 11:00 AM STAGE RIGGER Office [facility] [address] [place] [phone] Denise Woodson, BARRERA TOILET ATTENDANT [address] [place], [place] 8[address]3368 10/30/2024 4:00 PM STAGE RIGGER Virtual Visit [facility] V[facility] 6405 [facility] [address] [place] [phone] Lisa Zambrano MD [address] [place] [address] 12/29/2024 12:45 PM CDT Office Visit [facility] [address] [place], [place] [address] Explorer [address] [phone] Fabi Coates MD [address] 1318[address] 12/29/2024 1:45 PM CDT Office Visit [facility] Pediatric Specialty [address] [phone] Fabi Coates MD [address] 4501[address] 06/01/2025 11:15 AM CDT Appointment [facility] Imaging [address] [facility] [address] [place] [phone] Robin Zepeda MD [address] [place] [address] 06/04/2025 11:00 AM CDT Office Visit [facility] Neurosurgery [address] 3rd [place] [address] Robin Zepeda MD [address] [place] [address] 615045 Usha Simon APRN [address] [address] documented as of this encounter Goals Goal Patient Goal Type Associated Problems Recent Progress Patient-Stated? Author I would like additional resources and support to manage my health and prevent future avoidable ED visits/hospital admissions Care Plan Increased risk of re-admission 40%( 3:02 PM STAGE RIGGER) Anastasia Talamantes, RN Note: Barriers: diagnosis of multiple, chronic, complex medical conditions, provider availability - wait time to complete appointments, etc. Strengths: motivated, engaged in care coordination Patient expressed understanding of goal: yes Action steps to achieve this goal: 1. I will follow up with my providers as scheduled/recommended - Pulmonology: TBD - Mental Health weekly - PT, OT and SPECIFICATION CONSULTANT, continuing through [facility]: - PCP: 09/18/2024 & 10/15/2024. - Vascular [...] clinic with 24/7 after hours services available. Reception Specialist will remain available as needed. documented as of this encounter Visit Diagnoses Not on filedocumented in this encounter Additional Health Concerns Active Problems Noted Date Diagnosed Date Increased risk of re-admission 02/18/2024 Assessment Noted Time PHQ-9 Depression Total Score: 5 08/03/20 24 12:49 PM STAGE RIGGER documented as of this encounter Care Teams Farm Mechanic Relationship Specialty Start Date End Date Winston Villatoro OD [facility] [address] [place] [id number] PCP - Ophthalmology Ophthalmology 02/11/13 Denise Woodson APRN TOILET ATTENDANT [address] [address] [address] PCP - General Family Practice 09/21/20 Denise Woodson APRN TOILET ATTENDANT [address] [facility] [address] Assigned PCP 07/17/20 Usha Simon APRN TOILET ATTENDANT [address] [address]227[address], [place] [address] Nurse Practitioner Neurological Surgery 01/24/24 Dangelo Salinas MD [address] [place], [place] [phone] Neurology 01/27/24 Anastasia Stearns, RN Lead Reception Specialist 02/06/24 Germaine Lopez, W Community Health Worker Primary Care - CC 02/18/24 Joya Lira [facility] [address] [place], [place] [phone] Pharmacist Pharmacist 05/25/24 Joya Lira [facility] [address] [place] [address] Assigned MTM Pharmacist 06/08/24 Fabi Coates MD [address] [place] [address] 75 [place], [place] 836[address] Genetics, Clinical 06/18/24 Robin Zepeda MD [address] [place], [place] [address] Assigned Neuroscience Provider 07/08/24 08/07/24 Danna Cardenas PA-C [address] [place] [facility] [place] [address] Assigned Heart and Vascular Provider 07/08/24 documented as of this encounter
--- OUTSIDE RECORDS SUMMARY | 2024-09-20 19:21 | XMS_ITS | Encounter Summary ---
Author Organization [facility] Address [address] [place] [address] Care Team Providers Care Nitric Acid Concentrator Operator Name Role Phone Winston Villatoro OD Unavailable [phone] Denise Woodson APRN POLICE LIEUTENANT PRECINCT Unavailable [phone] Denise Woodson APRN POLICE LIEUTENANT PRECINCT Primary Care Provider Usha Simon APRN POLICE LIEUTENANT PRECINCT Unavailable [phone] Dangelo Salinas MD Unavailable Anastasia Stearns RN Unavailable Germaine Lopez [facility] Unavailable Joya Lira [facility] Unavailable Joya Lira [facility] Unavailable Fabi Coates MD Unavailable [phone] Robin Catalan MD Unavailable [phone] Danna Cardenas PA-C Unavailable [phone] Felicita Desai RN Unavailable Unavailab Arthur RiosSW Unavailable [phone] Randy Maradiaga DO Unavailable + Encounter Details Date Type Department Care Team (Late st Contact Info) Description 07/16/2024 [facility] Medical [facility] Addiction [facility] [address] [place] [address] Arthur Salas, [facility] [address] [place] [address] Social History Tobacco Use Types Packs/Day Years [...] How often do you attend rastafarian or roman catholic serv ices? 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 Not on file Not on file Not on file Not on file Not on file Not on file documented as of this encounter Plan of Treatment Upcoming Encounters Date Type Department Care Team (Late st Contact Info) Description 09/25/2024 11:00 AM GEOMORPHOLOGY TEACHER Office Visit [facility] [address] [place] [phone] Denise Woodson, BRARERA [employer]ICE [employer]ENANT [employer] [address] [place], [place] [phone] 09/29/2024 9:00 AM GEOMORPHOLOGY TEACHER Virtual Visit [facility] Neurology [address] 3rd [place] [phone] Randy Maradiaga, [address] [address] 10/09/2024 1:20 PM GEOMORPHOLOGY TEACHER Office Visit [facility] 6405 [facility] [address] [place] [phone] Danna Cardenas PA-C 6405 [place], [place] [address] 10/15/2024 11:00 AM GEOMORPHOLOGY TEACHER Office Visit [facility] [address] [place] [phone] Denise Woodson, BARRERA [employer] [address] [place] [address] 10/30/2024 4:00 PM GEOMORPHOLOGY TEACHER Virtual Visit [facility] V[facility] Clinic [place] [address] [place] [phone] Lisa Zambrano MD [address] [place] [address] 12/29/2024 12:45 PM CDT Office Visit [facility] [address] [facility] [address],[place] [phone] Fabi Coates MD [address] [place] [address] 75 [place] [address] 12/29/2024 1:45 PM CDT Office Visit [facility] [address] [facility] Explorer [facility] [address],[place] [phone] Fabi Coates MD [address] [facility] [address] [place] [address] 06/01/2025 11:15 AM CDT Appointment [facility] Imaging [address] [place] [phone] Robin Zepeda MD [address] [place] [address] 06/04/2025 11:00 AM CDT Office Visit [facility] Neurosurgery [facility] [address] [place] [address] 3rd [place] [phone] Robin Zepeda MD [address] [place] [address] Usha Simon APRN [facility] [address] [address] documented as of this encounter Goals Goal Patient Goal Type Associated Problems Recent Progress Patient-Stated? Author I would like additional resources and support to manage my health and prevent future avoidable ED visits/hospital admissions Care Plan Increased risk of re-admission 40%( 4 3:02 PM GEOMORPHOLOGY TEACHER) Anastasia Talamantes, RN Note: Barriers: diagnosis of multiple, chronic, complex medical conditions, provider availability - wait time to complete appointments, etc. Strengths: motivated, engaged in care coordination Patient expressed understanding of goal: yes Action steps to achieve this goal: 1. I will follow up with my providers as scheduled/recommended - Pulmonology: TBD - Mental Health weekly - PT, OT and AERIAL CROP DUSTER, continuing through [facility]: - PCP: 09/18/2024 & 10/15/2024. - Vascular [...] clinic with 24/7 after hours services available. Computer Animator will remain available as needed. documented as of this encounter Visit Diagnoses Not on filedocumented in this encounter Additional Health Concerns Active Problems Noted Date Diagnosed Date Increased risk of re-admission 02/18/2024 Infection Onset Date Last Indicated Resolved Time Rule Out COVID-19 09/13/2024 09/13/2024 09/13/2024 12:31 PM GEOMORPHOLOGY TEACHER Assessment Noted Time PHQ-9 Depression Total Score: 14 024 11:46 AM CDT documented as of this encounter Care Teams Nitric Acid Concentrator Operator Relationship Specialty Start Date End Date Winston Villatoro OD [facility] [address] [place] [address] PCP - Ophthalmology Ophthalmology 02/11/13 Denise Woodson APRN [employer] [address] [address] PCP - General Family Practice 09/21/20 Denise Woodson APRN [employer] [address] [address] [address] Assigned PCP 07/17/20 Usha Simon APRN [employer] [address] 3806721[address] [address] Nurse Practitioner Neurological Surgery 01/24/24 Dangelo Salinas MD [address] [place] [address] Neurology 01/27/24 Anastasia Stearns, RN Lead Computer Animator 02/06/24 Germaine Lopez, W Community Health Worker Primary Care - CC 02/18/24 Joya Lira [facility] [address] [place] [address] Pharmacist Pharmacist 05/25/24 Joya Lira [facility] [address] [place] [address] Assigned MTM Pharmacist 06/08/24 Fabi Coates MD [address] [place] [address] 75 [place] [address] Genetics, Clinical 06/18/24 Robin Zepeda MD [address] [address] Assigned Neuroscience Provider 07/08/24 08/07/24 Danna Cardenas PA-C 6405 [place] [address] Assigned Heart and Vascular Provider 07/08/24 Felicita Desai, RN Lead Computer Animator 07/14/24 07/28/24 Arthur Salas, [facility] [address] [address] Assigned Behavioral Health Provider 08/08/24 Randy Maradiaga DO [address] [place] [address] Assigned Neuroscience Provider 08/08/24 documented as of this encounter
--- OUTSIDE RECORDS SUMMARY | 2024-09-20 19:21 | XMS_ITS | Encounter Summary ---
Author Organization [facility] Address [address] [place] [address] Care Team Providers Care Counter Maker Name Role Phone Winston Villatoro OD Unavailable Denise Woodson APRN LEVELMAN Unavailable [phone] Denise Woodson APRN LEVELMAN Primary Care Provider Usha iSmon APRN LEVELMAN Unavailable [phone] Dangelo Salinas MD Unavailable Anastasia Stearns RN Unavailable [phone] Germaine Lopez [facility] Unavailable Joya Lira [facility] Unavailable Joya Lira [facility] Unavailable [phone] Fabi Coates MD Unavailable [phone] Danna CardenasC Unavailable [phone] Arthur Salas ABSORPTION PLANT OPERATOR HELPER Unavailable [phone] Randy Maradiaga DO Unavailable + Reason for Visit * Mental Health Outpatient (Routine: Next available opening) - Authorized Specialty Diagnoses / Procedures Referred By Contac t Referred To Contact Neuropsychology Diagnoses Dural arteriovenous fistula Cerebrovascular accident (CVA), unspecified mechanism (H) Robin Zepeda MD [address] [place], [place] [address] [address] Phone: tel: fax: Referral ID Status Reason Start Date Expiration Date V isits Requested Visits Authorized [id number] Authorized 06/02/2024 06/02/2025 3 3 Encounter Details Date Type Department Care Team (Latest Contact Info) Description 08/10/2024 12:30 PM STOCK LAYER Virtual Visit [facility] Neuropsychology [address] 3rd [place] [phone] Robin Zepeda MD [address] [place], [place] [address], [place] [address] Other specified mental disorders due to known [...] How often do you attend zoroastrianism or rastafari serv ices? Never 02/28/2024 Do [...] 08/04/2024 [facility] of Occupat ional [facility] - Occupational Stress Questionnaire Answer Date [...] on file Legal Sex Female 4:05 AM STOCK LAYER Gender Identity Not on file Sexual Orientation [...] invitation should be resent by: Send to Case Rover Will anyone else be joining your video visit? NO Video Start Time: 12:20 pm Video-Visit Details Type of service: Video Visit Video End Time: 1:02 pm Originating Location (pt. 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 The patient was referred for a neuropsychological evaluation by Robin Zepeda MD, to assess her cognitive and emotional functioning secondary to cognitive difficulties. She was unaccompanied during the interview. This interview was completed via [employer]. 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 machine operator due to fatigue; has not resumed cooking due to difficulty remembering and following recipes Finances: Manages independently; utilizes autopay features; reported not checking on finances as frequently as she used to but denied ongoing concerns with director of financial planning Medications: Manages independently with no noted concerns [...] not walk until after 3 years old [place] Language: Polish Education: Described herself as a gifted student [...] formally diagnosed 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 Interval history: - Presented to [place] ED 07/12/ with right hand/foot paresthesias, nausea, [...] L.P., ABPP Board Certified in Clinical Neuropsychology Investigation Specialist / Licensed Psychologist [id number] Time spent: One unit psychiatric diagnostic interview including interview and clinical assessment by licensed and board-certified neuropsychologist (CPT [id number]). Diagnoses: I67.1, I63.9, F06.8. K LAYER documented in this encounter Plan of Treatment Upcoming Encounters Date Type Department Care Team (Late st Contact Info) Description 09/25/2024 11:00 AM STOCK LAYER Office Visit [facility] [address] [place] [address] Denise Woodson APRN [facility] [address] [place] [address] 09/29/2024 9:00 AM STOCK LAYER Virtual Visit [facility] Neurology Clinic [address] 3rd [place] [phone] Randy Maradiaga, 909 [place], [place] [address] 10/09/2024 1:20 PM STOCK LAYER Office [facility] Heart [facility] [address] [facility] [address] [place] [phone] Danna Cardenas PA-C 6405 [place], [place] [address]25 10/15/2024 11:00 AM STOCK LAYER Office Visit [facility] [address] [place] [phone] Denise Woodson, BARRERA LEVELMAN [address] [place], [place] 1989[address] 10/30/2024 4:00 PM STOCK LAYER Virtual Visit [facility] V[facility] [place] [address] [place] [phone] Lisa Zambrano MD [address] [place] [address] 12/29/2024 12:45 PM CDT Office Visit [facility] [address] [place] [address] Ave [address] [phone] Fabi Coates MD [address] [place] [address] 12/29/2024 1:45 PM CDT Office Visit [facility] [address] [place] [address] Ave Explorer [address] [phone] Fabi Coates MD [address] [place] [address] 75 [place] [address] 06/01/2025 11:15 AM CDT Appointment [facility] Imaging [address] [place] [phone] Robin Zepeda MD [address] [place] [address] 06/04/2025 11:00 AM CDT Office Visit [facility] Neurosurgery Clinic [address] 3rd [place] [phone] Robin Zepeda MD [address] [place] [address] 222565 Usha Simon APRN LEVELMAN [address] [place] [address] documented as of this encounter Goals Goal Patient Goal Type Associated Problems Recent Progress Patient-Stated? Author I would like additional resources and support to manage my health and prevent future avoidable ED visits/hospital admissions Care Plan Increased risk of re-admission 40%( 4 3:02 PM STOCK LAYER) Anastasia Talamantes, RN Note: Barriers: diagnosis of multiple, chronic, complex medical conditions, provider availability - wait time to complete appointments, etc. Strengths: motivated, engaged in care coordination Patient expressed understanding of goal: yes Action steps to achieve this goal: 1. I will follow up with my providers as scheduled/recommended - Pulmonology: TBD - Mental Health weekly - PT, OT and OVEN STRIPPER, continuing through [facility] [place]: - PCP: 09/18/2024 & 10/15/2024. - Vascular [...] clinic with 24/ after hours services available. Babbitter will remain available as needed. documented as [...] Total Score: 5 08/03/20 24 12:49 PM STOCK LAYER documented as of this encounter Care Teams Counter Maker Relationship Specialty Start Date End Date Winston Villatoro OD [facility] [address] [facility] [address] [place] [address] PCP - Ophthalmology Ophthalmology 02/11/13 Denise Woodson APRN LEVELMAN [address] [place] [address] PCP - General Family Practice 09/21/20 Denise Woodson APRN LEVELMAN [address] [place] [address] Assigned PCP 07/17/20 Usha Simon APRN LEVELMAN 9 [facility] [address] Nurse Practitioner Neurological Surgery 01/24/24 Dangelo Salinas MD [address] [facility] 200 [place] [address] Neurology 01/27/24 Anastasia Stearns, RN Lead Babbitter 02/06/24 Germaine Lopez, W Community Health Worker Primary Care - CC 02/18/24 Joya Lira [facility] [address] [place] [address] Pharmacist Pharmacist 05/25/24 Joya Lira [facility] [address] [place] [address] Assigned MTM Pharmacist 06/08/24 Fabi Coates MD [address] [place] [address] 75 [place] [address] Genetics, Clinical 06/18/24 Danna Cardenas PA-C [address] [place] [address] Assigned Heart and Vascular Provider 07/08/24 Arthur Salas LICSW [address] [place] [id number] Assigned Behavioral Health Provider 08/08/24 Randy Maradiaga DO 909 [place], [place] [address] Assigned Neuroscience Provider 08/08/24 documented as of this encounter
--- OUTSIDE RECORDS SUMMARY | 2024-09-20 19:21 | XMS_ITS | Encounter Summary ---
Author Organization [facility] Address [address] [place] [address] Care Team Providers Care Division Operations Specialist Name Role Phone Winston Villatoro OD Unavailable [phone] Denise Woodson APRN WEB FEEDER Unavailable [phone] Denise Woodson APRN WEB FEEDER Primary Care Provider Usha Simon APRN WEB FEEDER Unavailable + [phone] Dangelo Salinas MD Unavailable Anastasia Stearns RN Unavailable Germaine Lopez CH Unavailable [phone] Lisa Zambrano MD Unavailable + [phone] Raul Hoyos MD Unavailable Joya Lira [facility] Unavailable [phone] Joya Lira [facility] Unavailable [phone] Fabi Coates MD Unavailable [phone] Robin Catalan MD Unavailable [phone] Danna Cardenas PA-C Unavailable [phone] Felicita Desai RN Unavailable Unavailab Arthur Rios Unavailable [phone] Randy Maradiaga DO Unavailable + Encounter Details Date Type Department Care Team (Late st Contact Info) Description 07/07/2024 MyC Medical Advice [facility] Neurology Clinic [address] [place] [address] Field Liliane Social History Tobacco [...] How often do you attend rastafari or mandaen serv ices? 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 Not on file Not on file Not on file Not on file Not on file Not on file Not on file documented as of this encounter Plan of Treatment Upcoming Encounters Date Type Department Care Team (Late st Contact Info) Description 09/25/2024 11:00 AM MODERN AND CONTEMPORARY ART CURATOR Office Visit [facility] [address] [place] [phone] Denise Woodson APRN WEB FEEDER [address] [place], [place] [address] 09/29/2024 9:00 AM MODERN AND CONTEMPORARY ART CURATOR Virtual Visit [facility] Neurology [address] 3rd [place] [address] Randy Maradiaga, [address] [address] 10/09/2024 1:20 PM MODERN AND CONTEMPORARY ART CURATOR Office Visit [facility] Heart [facility] 6[address] [facility] [address] [place] [address] Danna Cardenas PA-C 6405 [place], [place] [address] 10/15/2024 11:00 AM MODERN AND CONTEMPORARY ART CURATOR [facility] [address] [place] [phone] Denise Woodson APRN WEB FEEDER [address] [facility] [place] [address] 10/30/2024 4:00 PM MODERN AND CONTEMPORARY ART CURATOR Virtual Visit [facility] Vascular [facility] [address] [place] [phone] Lisa Zambrano MD [address] [place] [address] 12/29/2024 12:45 PM CDT Office Visit [facility] [address] [facility] [address],[place] [phone] Fabi Coates MD 420 [facility] 75 [place] [address] 12/29/2024 1:45 PM CDT Office Visit [facility] 2450 [facility] Explorer [facility] [address] Fl[address],[place] [phone] Fabi Coates MD [address] [facility] [address] [facility] [address] [place] [address] 06/01/2025 11:15 AM CDT Appointment [facility] Specialty Care Center Imaging [address] [place] [phone] Robin Zepeda MD [address] [place] [address] 06/04/2025 11:00 AM CDT Office Visit [facility] Neurosurgery Clinic [address] 3rd [place] [phone] Robin Zepeda MD [address] [place] [address] Usha Simon APRN [address] [address] documented as of this encounter Goals Goal Patient Goal Type Associated Problems Recent Progress Patient-Stated? Author I would like additional resources and support to manage my health and prevent future avoidable ED visits/hospital admissions Care Plan Increased risk of re-admission 40%( 4 3:02 PM MODERN AND CONTEMPORARY ART CURATOR) Anastasia Talamantes, RN Note: Barriers: diagnosis of multiple, chronic, complex medical conditions, provider availability - wait time to complete appointments, etc. Strengths: motivated, engaged in care coordination Patient expressed understanding of goal: yes Action steps to achieve this goal: 1. I will follow up with my providers as scheduled/recommended - Pulmonology: TBD - Mental Health weekly - PT, OT and GENERAL DISTILLERY WORKER, continuing through [facility] [place]: - PCP: 09/18/2024 & 10/15/2024. - Vascular [...] with 24/7 after hours services available. Senior Government Program Analyst will remain available as needed. documented as of this encounter Visit Diagnoses Not on filedocumented in this encounter Additional Health Concerns Active Problems Noted Date Diagnosed Date Increased risk of re-admission 02/18/2024 Infection Onset Date Last Indicated Resolved Time Rule Out COVID-19 09/13/2024 09/13/2024 09/13/2024 12:31 PM MODERN AND CONTEMPORARY ART CURATOR Assessment Noted Time PHQ-9 Depression Total Score: 5 03/17/20 24 9:45 AM CDT documented as of this encounter Care Teams Division Operations Specialist Relationship Specialty Start Date End Date Winston Villatoro OD [facility] [address] [place] [address] PCP - Ophthalmology Ophthalmology 02/11/13 Denise Woodson APRN WEB FEEDER [address] [address] [address] PCP - General Family Practice 09/21/20 Denise Woodson APRN WEB FEEDER [address] [address] Assigned PCP 07/17/20 Usha Simon APRN WEB FEEDER 909 [facility] [address] Nurse Practitioner Neurological Surgery 01/24/24 Dangelo Salinas MD [address] [place] [address] Neurology 01/27/24 Anastasia Stearns, RN Lead Senior Government Program Analyst 02/06/24 Germaine Lopez, W Community Health Worker Primary Care - CC 02/18/24 Lisa Zambrano MD [address] [facility] [address] [place] [address] Assigned Heart and Vascular Provider 05/08/24 07/07/24 Raul Hoyos MD [address] [address] Assigned Neuroscience Provider 05/08/24 07/07/24 Joya Lira RPH [address] [address] Pharmacist Pharmacist 05/25/24 Joya Lira Joleen [address] [place] [address] Assigned MTM Pharmacist 06/08/24 Fabi Coates MD [address] [facility] [address] [place] [address] Genetics, Clinical 06/18/24 Robin Zepeda MD 909 [facility] MD5315EF [place] [address] Assigned Neuroscience Provider 07/08/24 08/07/24 Danna Cardenas PA-C 6405 [place] [address] Assigned Heart and Vascular Provider 07/08/24 Felicita Desai, RN Lead Senior Government Program Analyst 07/14/24 07/28/24 Arthur Salas [facility] [address] [place] [address] Assigned Behavioral Health Provider 08/08/24 Randy Maradiaga DO [address] [place] [address] Assigned Neuroscience Provider 08/08/24 documented as of this encounter
--- OUTSIDE RECORDS SUMMARY | 2024-09-20 19:21 | XMS_ITS | Encounter Summary ---
Author Organization [facility] Address [address] [place] [address] Care Team Providers Care Side Laster Name Role Phone Winston Villatoro OD Unavailable [phone] Denise Woodson APRN LINE SERVICER Unavailable [phone] Denise Woodson APRN LINE SERVICER Primary Care Provider Usha Simon APRN [facility] Unavailable Dangelo Salinas MD Unavailable Anastasia Stearns RN Unavailable [phone] Germaine Lopez [facility] Unavailable [phone] Joya Lira [facility] Unavailable [phone] Joya Lira [facility] Unavailable Fabi Coates MD Unavailable [phone] Danna Cardenas PA-C Unavailable [phone] Sinyigaledy, Speciose SENIOR CLINICAL DATA ANALYST Unavailable [phone] Randy Maradiaga DO Unavailable + Encounter Details Date Type Department Care Team (Late st Contact Info) Description 08/11/2024 [facility] Mental Health and Addiction Clinic [address] [place] [phone] Sinyigaya, Speciose, SENIOR CLINICAL DATA ANALYST [address] [place] [address] Social History Tobacco Use Types Packs/Day Years [...] How often do you attend taoist or denominational serv ices? 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 on file Not on file Not on file Not on file Not on file Not on file Not on file documented as of this encounter Plan of Treatment Upcoming Encounters Date Type Department Care Team (Late st Contact Info) Description 09/25/2024 11:00 AM SYNTHETIC PLASTERER Office Visit [facility] [address] [place] [address] Denise Woodson APRN [facility] [address] [place] [address] 09/29/2024 9:00 AM SYNTHETIC PLASTERER Virtual Visit [facility] Neurology [facility] [address] [facility] [address] 3rd [place] [phone] Randy Maradiaga, [address] [place] [address] 10/09/2024 1:20 PM SYNTHETIC PLASTERER Office Visit [facility] Heart [facility] [address] [facility] [address] [place] [phone] Danna Cardenas PA-C 6405 [place] [address] 10/15/2024 11:00 AM SYNTHETIC PLASTERER Office Visit [facility] [address] [place] [phone] Chintan DeniseBARRERA diaz LINE SERVICER [address] [place] [address] 10/30/2024 4:00 PM SYNTHETIC PLASTERER Virtual Visit [facility] Vascular Clinic [place] [address] [place] [phone] Lisa Zambrano MD [address] [place] [address] 12/29/2024 12:45 PM CDT Office Visit [facility] [address] [facility] [address],[place] [address] Fabi Coates MD 420 [facility] 75 [place], [place] [address] 12/29/2024 1:45 PM CDT Office Visit [facility] 2450 [facility] Explorer Clinic [address]th [address],[place] [address] Fabi Coates MD [address] [facility] [address] [place] [address] 06/01/2025 11:15 AM CDT Appointment [facility] Care Center Imaging [address] [place] [address] Robin Zepeda MD [address] [place] [address] 06/04/2025 11:00 AM CDT Office Visit [facility] Neurosurgery Clinic [address] 3rd [place] [address] Robin Zepeda MD [address] [place] [address] Usha Simon APRN [address] [address] documented as of this encounter Goals Goal Patient Goal Type Associated Problems Recent Progress Patient-Stated? Author I would like additional resources and support to manage my health and prevent future avoidable ED visits/hospital admissions Care Plan Increased risk of re-admission 40%( 4 3:02 PM SYNTHETIC PLASTERER) No Anastasia Stearns, RN Note: Barriers: diagnosis of multiple, chronic, complex medical conditions, provider availability - wait time to complete appointments, etc. Strengths: motivated, engaged in care coordination Patient expressed understanding of goal: yes Action steps to achieve this goal: 1. I will follow up with my providers as scheduled/recommended - Pulmonology: TBD - Mental Health weekly - PT, OT and MANAGER BUSINESS PROCESS, continuing through [facility] [place]: - PCP: 09/18/2024 & 10/15/2024. - [...] clinic with 24/ after hours services available. Aeronautical Engineering Teacher will remain available as needed. documented as of this encounter Visit Diagnoses Not on filedocumented in this encounter Additional Health Concerns Active Problems Noted Date Diagnosed Date Increased risk of re-admission 02/18/2024 Infection Onset Date Last Indicated Resolved Time Rule Out COVID-19 09/13/2024 09/13/2024 09/13/2024 12:31 PM SYNTHETIC PLASTERER Assessment Noted Time PHQ-9 Depression Total Score: 5 08/03/20 24 12:49 PM SYNTHETIC PLASTERER documented as of this encounter Care Teams Side Laster Relationship Specialty Start Date End Date Winston Villatoro OD [facility] 701 [facility] [address] [place], [place] [phone] PCP - Ophthalmology Ophthalmology 02/11/13 Denise Woodson APRN LINE SERVICER [address] [place] [address] PCP - General Family Practice 09/21/20 Denise Woodson APRN LINE SERVICER [address] [place] [address] Assigned PCP 07/17/20 Usha Simon APRN LINE SERVICER 9 [facility]121[place] [address] Nurse Practitioner Neurological Surgery 01/24/24 Dangelo Salinas MD [address] [facility] [address] [address] Neurology 01/27/24 Anastasia Stearns, RN Lead Aeronautical Engineering Teacher 02/06/24 Germaine Lopez, W Community Health Worker Primary Care - CC 02/18/24 Joya Lira [facility] [address] [place] [address] Pharmacist Pharmacist 05/25/24 Joya Lira [facility] [address] [place] [address] Assigned MTM Pharmacist 06/08/24 Fabi Coates MD [address] [place] [address] 75 [place] [address] Genetics, Clinical 06/18/24 Danna Cardenas PA-C [address] [place] [address] Assigned Heart and Vascular Provider 07/08/24 Arthur Salas SENIOR CLINICAL DATA ANALYST [address] [place] [address] Assigned Behavioral Health Provider 08/08/24 Randy Maradiaga DO 909 [place] [address] Assigned Neuroscience Provider 08/08/24 documented as of this encounter
--- OUTSIDE RECORDS SUMMARY | 2024-09-20 19:21 | XMS_ITS | Encounter Summary ---
Author Organization [facility] Address [address] [place] [address] Care Team Providers Care Instructional Services Librarian Name Role Phone Winston Villatoro OD Unavailable [phone] Denise Woodson APRN PLATE SHOP HELPER Unavailable [phone] Denise Woodson APRN PLATE SHOP HELPER Primary Care Provider Usha Simon APRN PLATE SHOP HELPER Unavailable Dangelo Salinas MD Unavailable Anastasia Stearns RN Unavailable [phone] Germaine Lopez [facility] Unavailable Joya Lira [facility] Unavailable Joya Lira [facility] Unavailable Fabi Coates MD Unavailable [phone] Robin Catalan MD Unavailable [phone] Danna Cardenas PA-C Unavailable [phone] Reason for Referral * Diagnostic Imaging XR (Routine) - Pending Review Specialty Diagnoses / Procedures Referred By Nila t Referred To Contact Radiology. Diagnoses Chest pain, unspecified type Procedures Radiologist Consult For Cardiology Danna Cardenas PA-C 50[address] [place] [address] Phone: tel: fax: Referral ID Status Reason Start Date Expiration Date V isits Requested Visits Authorized [id number] Pending Review 08/07/2024 08/07/2025 1 1 IANCE REPAIRER * Diagnostic Imaging CT Scan (Routine) - Closed Specialty Diagnoses / Procedures Referred By Contac t Referred To Contact Cardiology Diagnoses Chest pain, unspecified type Procedures CTA Angiogram coronary artery Danna Cardenas PA-C 6405 [place] [address] Phone: tel: fax: [address] [place] [place] [address] Phone: tel: Referral ID Status Reason Start Date Expiration Date Visits Re quested Visits Authorized [id number] Closed 06/26/2024 06/26/2025 1 1 IANCE REPAIRER Reason for Visit * Diagnostic Imaging CT Scan (Routine) - Closed Specialty Diagnoses / Procedures Referred By Contac t Referred To Contact Cardiology Diagnoses Chest pain, unspecified type Procedures CTA Angiogram coronary artery Danna Cardenas PA-C 6[address] [place] [address] Phone: tel: fax: [address] [place] [place] [address] Phone: tel: Referral ID Status Reason Start Date Expiration Date Visits Re quested Visits Authorized [id number] Closed 06/26/2024 06/26/2025 1 1 Encounter Details Date Type Department Care Team (Latest Contact Info) Description 08/07/2024 1:00 PM APPLIANCE REPAIRER - 08/07/2024 11:59 PM APPLIANCE REPAIRER Hospital Encounter [address] [place] [phone] Danna Cardenas PA-C [address] [facility] [place] [address] Chest pain, unspecified type Discharge Disposition: Home [...] How often do you attend rastafarian or advent serv ices? 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 Not on file Not on file Not on file Not on file Not on file Not on file documented as of this encounter Last Filed Vital Signs Vital Sign Reading Time Taken Comments Blood Pressure 125/88 08/07/2024 1:15 PM APPLIANCE REPAIRER Pulse 68 08/07/2024 1:15 PM APPLIANCE REPAIRER Temperature - - Respiratory Rate - - [...] st Contact Info) Description 09/25/2024 11:00 AM APPLIANCE REPAIRER Office Visit [facility] [address] [place] [address] Denise Woodson APRN PLATE SHOP HELPER [address] [place], [place] [phone] 09/29/2024 9:00 AM APPLIANCE REPAIRER Virtual Visit [facility] Neurology Clinic [address] [place] [phone] Randy Maradiaga, [address] [address] 10/09/2024 1:20 PM APPLIANCE REPAIRER Office Visit [facility] Heart [facility] 6[address] [facility] [address] [place] [phone] Danna Cardenas PA-C 6405 [place], [place] [address] 10/15/2024 11:00 AM APPLIANCE REPAIRER Office Visit [facility] [address] [place] [phone] Denise Woodson WELDER/FITTER PLATE SHOP HELPER [address] [place], [place] [address] 10/30/2024 4:00 PM APPLIANCE REPAIRER Virtual Visit [facility] Vascular Clinic [place] [address] [place] [phone] Lisa Zambrano MD [address] [place] [address] 12/29/2024 12:45 PM CDT Office Visit [facility] [address] [place], [place] [address] Explorer [address] [phone] Fabi Coates MD [address] [place] [address] 12/29/2024 1:45 PM CDT Office Visit [facility] Pediatric Specialty Clinic [address] [place], [place] [address] Explorer [address] [phone] Fabi Coates MD [address] [place] [address] 06/01/2025 11:[address] [facility] Specialty Care Center Imaging [address] [facility] [address] [place] [phone] Robin Zepeda MD [address] [place] [address] [address] 06/04/2025 11:00 AM CDT Office Visit [facility] Neurosurgery [address] 3rd [place] [address] Robin Zepeda MD 909 [facility] [place], [place] [address] Usha Simon APRN PLATE SHOP HELPER 909 [facility] [address] Scheduled Orders Name Type Priority Associated Diagnoses [...] risk of re-admission 40%( 4 3:02 PM APPLIANCE REPAIRER) Anastasia Talamantes, RN Note: Barriers: diagnosis of multiple, chronic, complex medical conditions, provider availability - wait time to complete appointments, etc. Strengths: motivated, engaged in care coordination Patient expressed understanding of goal: yes Action steps to achieve this goal: 1. I will follow up with my providers as scheduled/recommended - Pulmonology: TBD - Mental Health weekly - PT, OT and POWER TRANSFORMER ASSEMBLER, continuing through [facility] [place]: - PCP: 09/18/2024 & 10/15/2024. - [...] clinic with 24/7 after hours services available. Hiv Counselor will remain available as needed. documented as of this encounter Procedures Procedure Name Priority Date/Time Associated Diagnosis Comments CTA ANGIOGRAM CORONARY ARTERY Routine 08/07/2024 4:31 PM APPLIANCE REPAIRER Chest pain, unspecified type RADIOLOGIST CONSULT FOR CARDIOLOGY Routine 08/07/2024 4:31 PM APPLIANCE REPAIRER Chest pain, unspecified type documented in this encounter Results * Radiologist Consult For Cardiology (08/07/2024 4:31 PM APPLIANCE REPAIRER) Anatomical Region Laterality Modality Computed Tomogra phy Impressions 08/10/2024 4:16 PM APPLIANCE REPAIRER IMPRESSION: Pectus excavatum. Mosaic attenuation of the lungs suggests possible air trapping. MARLO FAULKNER MD Narrative 08/10/2024 4:16 PM APPLIANCE REPAIRER RADIOLOGIST CONSULT FOR CARDIOLOGY 08/07/2024 4:31 PM [...] CTA Angiogram coronary artery (08/07/2024 4:31 PM APPLIANCE REPAIRER) Anatomical Region Laterality Modality Cardio, SUBRAD CT BODY, UMP CT CHEST, RAD CT Computed Tomography Impressions 08/07/2024 4:43 PM APPLIANCE REPAIRER IMPRESSION: 1. Normal coronary anatomy with no [...] SERGEI WATTERS MD Narrative 08/07/2024 4:43 PM APPLIANCE REPAIRER Procedure: CTA ANGIOGRAM CORONARY ARTERY Examination Date: [...] Images were reconstructed and analyzed on a [employer] workstation. Scan protocol was optimized to minimize [...] Images were reconstructed and analyzed on a [employer] workstation. Scan protocol was optimized to minimize [...] For 1 dose $Given 08/07/2024 4:31 PM APPLIANCE REPAIRER 120 mLs ivabradine (CORLANOR) tablet 5-15 mg [...] metoprolol., Cardiac Intra-procedure $Given 08/07/2024 1:15 PM APPLIANCE REPAIRER 10 mg metoprolol tartrate (LOPRESSOR) tablet 25-100 [...] block), Cardiac Intra-procedure $Given 08/07/2024 1:15 PM APPLIANCE REPAIRER 50 mg nitroGLYcerin (NITROSTAT) sublingual tablet 0.4 [...] stenosis., Cardiac Intra-procedure $Given 08/07/2024 2:38 PM APPLIANCE REPAIRER 0.4 mg sodium chloride (PF) 0.9% PF flush 40-100 mL 40-100 mL, Intravenous, ONCE, On Sat08/07/24 at 1430, For 1 dose $Given 08/07/2024 4:31 PM APPLIANCE REPAIRER 100 mLs documented in this encounter Additional Health Concerns Active Problems Noted Date Diagnosed Date Increased risk of re-admission 02/18/2024 Assessment Noted Time PHQ-9 Depression Total Score: 5 08/03/20 24 12:49 PM APPLIANCE REPAIRER documented as of this encounter Care Teams Instructional Services Librarian Relationship Specialty Start Date End Date Winston Villatoro OD [facility] [address] [place] [address] PCP - Ophthalmology Ophthalmology 02/11/13 Denise Woodson APRN PLATE SHOP HELPER [address] [place] [address] PCP - General Family Practice 09/21/20 Denise Woodson APRN PLATE SHOP HELPER [address] [place] [address] Assigned PCP 07/17/20 Usha Simon APRN PLATE SHOP HELPER 909 [facility]121[place], [place] [address] Nurse Practitioner Neurological Surgery 01/24/24 Dangelo Salinas MD [address] [place] [address] Neurology 01/27/24 Anastasia Stearns, RN Lead Hiv Counselor 02/06/24 Germaine Lopez, W Community Health Worker Primary Care - CC 02/18/24 Joya Lira RPH [address] [place] [address] Pharmacist Pharmacist 05/25/24 Joya Lira RPH [address] [place] [address] Assigned MTM Pharmacist 06/08/24 Fabi Coates MD 420 [facility] 75 [place], [place] [address] Genetics, Clinical 06/18/24 Robin Zepeda MD 909 [facility]121[place], [place] [address] Assigned Neuroscience Provider 07/08/24 08/07/24 Danna Cardenas PA-C [address] [place] [address] Assigned Heart and Vascular Provider 07/08/24 documented as of this encounter
--- OUTSIDE RECORDS SUMMARY | 2024-09-20 19:21 | XMS_ITS | Encounter Summary ---
Author Organization [place] Address [address] [place] [address] Care Team Providers Care Distribution Lead Name Role Phone Winston Villatoro OD Unavailable [phone] Denise Woodson APRN COPY MANAGER Unavailable [phone] Denise Woodson APRN COPY MANAGER Primary Care Provider Usha Simon APRN COPY MANAGER Unavailable Dangelo Salinas MD Unavailable Anastasia Stearsn RN Unavailable Germaine Lopez [facility] Unavailable [phone] Joya Lira [facility] Unavailable Joya Lira [facility] Unavailable Fabi Coates MD Unavailable [phone] Robin Catalan MD Unavailable [phone] Danna Cardenas PA-C Unavailable [phone] Felicita Desai RN Unavailable Unavailab Arthur RiosSW Unavailable [phone] Randy Maradiaga DO Unavailable + Encounter Details Date Type Department Care Team (Late st Contact Info) Description 07/18/2024 [facility] [address] [place] [phone] Denise Woodson APRN [facility] [address] [facility] [place], [place] [id number] Social History Tobacco Use Types Packs/Day Years [...] How often do you attend catholic or congregation serv ices? 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 Qing Copeland Lead Institute Scientist [facility] documented in this encounter Plan of Treatment Upcoming Encounters Date Type Department Care Team (Late st Contact Info) Description 09/25/2024 11:00 AM PHYTOPATHOLOGIST Office Visit [facility] [address] [place] [phone] Denise Woodson, BARRERA COPY MANAGER [address] [place] [address] 09/29/2024 9:00 AM PHYTOPATHOLOGIST Virtual Visit [facility] Neurology [address] [phone] Randy Maradiaga, [address] [address] 10/09/2024 1:20 PM PHYTOPATHOLOGIST Office Visit [facility] 6405 [facility] [address] [place] [phone] Danna Cardenas PA-C 6405 [place] [address] 10/15/2024 11:00 AM PHYTOPATHOLOGIST Office Visit [facility] [address] [place] [phone] Denise Woodson, BARRERA COPY MANAGER [address] [place] [address] 10/30/2024 4:00 PM PHYTOPATHOLOGIST Virtual Visit [facility] V[facility] [address] [place] [phone] Lisa Zambrano MD [address] [place] [address] 12/29/2024 12:45 PM CDT Office Visit [facility] [address] [place] [address] [phone] Fabi Coates MD [address] 762[address] 12/29/2024 1:45 PM CDT Office Visit [facility] [address] [place] [address] [phone] Fabi Coates MD [address] [place] [address] 2027[address] 06/01/2025 11:15 AM CDT Appointment [facility] Imaging [address] [place] [address] Robin Zepeda MD [address] [place] [address] 436765 06/04/2025 11:00 AM CDT Office Visit [facility] Neurosurgery [address] 3rd [place] [address] Robin Zepeda MD [address] [place] [address] Usha Simon APRN [address] [id number] documented as of this encounter Goals Goal Patient Goal Type Associated Problems Recent Progress Patient-Stated? Author I would like additional resources and support to manage my health and prevent future avoidable ED visits/hospital admissions Care Plan Increased risk of re-admission 40%( 4 3:02 PM PHYTOPATHOLOGIST) Anastasia Talamantes, RN Note: Barriers: diagnosis of multiple, chronic, complex medical conditions, provider availability - wait time to complete appointments, etc. Strengths: motivated, engaged in care coordination Patient expressed understanding of goal: yes Action steps to achieve this goal: 1. I will follow up with my providers as scheduled/recommended - Pulmonology: TBD - Mental Health weekly - PT, OT and COMPRESSOR REPAIRER, continuing through [facility] [place]: - PCP: 09/18/2024 & 10/15/2024. - Vascular [...] clinic with 24/7 after hours services available. Inhalation Therapy Teacher will remain available as needed. documented as of this encounter Visit Diagnoses Not on filedocumented in this encounter Additional Health Concerns Active Problems Noted Date Diagnosed Date Increased risk of re-admission 02/18/2024 Infection Onset Date Last Indicated Resolved Time Rule Out COVID-19 09/13/2024 09/13/2024 09/13/2024 12:31 PM PHYTOPATHOLOGIST Assessment Noted Time PHQ-9 Depression Total Score: 14 024 11:46 AM CDT documented as of this encounter Care Teams Distribution Lead Relationship Specialty Start Date End Date Winston Villatoro OD [facility] [address] [place] [id number] PCP - Ophthalmology Ophthalmology 02/11/13 Denise Woodson APRN COPY MANAGER [address] [place] [id number] PCP - General Family Practice 09/21/20 Denise Woodson APRN COPY MANAGER [address] [place] [address] Assigned PCP 07/17/20 Usha Simon APRN COPY MANAGER [address] 776735 Nurse Practitioner Neurological Surgery 01/24/24 Dangelo Salinas MD [address] [place], [place] [phone] Neurology 01/27/24 Anastasia Stearns, RN Lead Inhalation Therapy Teacher 02/06/24 Germaine Lopez, W Community Health Worker Primary Care - CC 02/18/24 Joya Lira [facility] [address] [place], [place] [phone] Pharmacist Pharmacist 05/25/24 Joya Lira [facility] [address] [place], [place] [phone] Assigned MTM Pharmacist 06/08/24 Fabi Coates MD [address] [place] [address] 75 [place], [place] [address]15 Genetics, Clinical 06/18/24 Robin Zepeda MD [address] 826185 Assigned Neuroscience Provider 07/08/24 08/07/24 Danna Cardenas PA-C [address] [place] [address] Assigned Heart and Vascular Provider 07/08/24 Felicita Desai, RN Lead Inhalation Therapy Teacher 07/14/24 07/28/24 Arthur Salas [facility] [address] [place] [address] Assigned Behavioral Health Provider 08/08/24 Randy Maradiaga DO [address] [place] [address] Assigned Neuroscience Provider 08/08/24 documented as of this encounter
--- OUTSIDE RECORDS SUMMARY | 2024-09-20 19:21 | XMS_ITS | Encounter Summary ---
Author Organization [place] Address [address] [place] [address] Care Team Providers Care Front Load Trash Truck Driver Name Role Phone Winston Villatoro OD Unavailable Denise Woodson APRN DIRECTOR GOVERNMENT Unavailable [phone] Denise Woodson APRN DIRECTOR GOVERNMENT Primary Care Provider Usha Simon APRN DIRECTOR GOVERNMENT Unavailable [phone] Dangelo Salinas MD Unavailable Anastasia Stearns RN Unavailable [phone] Germaine Lopez [facility] Unavailable [phone] Joya Lira [facility] Unavailable [phone] Joya Lira [facility] Unavailable Fabi Coates MD Unavailable [phone] Robin Catalan MD Unavailable [phone] Danna Cardenas PA-C Unavailable [phone] Arthur Salas Unavailable Randy Maradiaga DO Unavailable + Reason for Visit * Reason Onset Date Comments Forms 07/29/2024 Patient/[employer] - Return to work/ Workability Form Encounter Details Date Type Department Care Team (Late st Contact Info) Description 07/29/2024 My[facility] Medical Advice [facility] [address] [facility] [place] [address] Chintan DeniseBARRERA [facility] [address] [facility] [place] [address] Forms (Patient/[employer] - R... [...] How often do you attend sabianism or sikhism serv ices? Never 02/28/2024 Do [...] Answer Date Recorded PHQ-2 Score 2 07/30/2024 [facility] [place] [facility] Occupat ional Health - Occupational Stress [...] on file Legal Sex Female 4:05 AM BROADCAST CHECKER Gender Identity Not on file Sexual [...] Workability Form Who is the form from? Patient/[facility] Where did/will the form come from? form was sent via [employer] When is form/letter needed by: 08/04/24 How would you like the form/letter returned: Fax to [facility] Employee [facility] [employer] (JOSE LUIS on file - 05/21/24),then send form to Pt via [employer]ras[employer] Patient Notified form requests are processed in 5-7 business days:Yes Could we send this information to you in [employer]ras[employer] or would you prefer to receive a phone call?: Patient would prefer a phone call Okay to leave a detailed message?: N/A at Cell number on file: Telephone Information: DCAST CHECKER documented in this encounter Plan of Treatment Upcoming Encounters Date Type Department Care Team (Late st Contact Info) Description 09/25/2024 11:00 AM BROADCAST CHECKER Office Visit [facility] [address] [place] [address] Denise Woodson APRN [facility] [address] [place], [place] [phone] 09/29/2024 9:00 AM BROADCAST CHECKER Virtual Visit [facility] Neurology Clinic [address] 3rd [place] [phone] Randy Maradiaga, [address] [address] 10/09/2024 1:20 PM BROADCAST CHECKER Office Visit [facility] [address] [place] [phone] Danna Cardenas PA-C 6405 [place], [place] 442875 10/15/2024 11:00 AM BROADCAST CHECKER Office Visit [facility] [address] [place] [address] Denise Woodson APRN DIRECTOR GOVERNMENT [address] [place] [address] 10/30/2024 4:00 PM BROADCAST CHECKER Virtual Visit [facility] Vascular Clinic [place] [address] [place] [address] Lisa Zambrano MD [address] [place] [address]65 12/29/2024 12:45 PM CDT Office Visit [facility] [address] [place] [address] [phone] Fabi Coates MD [address] [place] [address] 12/29/2024 1:45 PM CDT Office Visit [facility] [address] [place] [address] [phone] Fabi Coates MD [address] [place] [address] 06/01/2025 11:[address] [facility] Imaging [address] [place] [address] [place] [phone] Robin Zepeda MD [address] [place] [address] [address] 06/04/2025 11:00 AM CDT Office Visit [facility] Neurosurgery [address] 3rd [place] [phone] Robin Zepeda MD [address] [place] [address] 452675 Usha Simon APRN CNP [address] [place] [address] 401705 documented as of this encounter Goals Goal Patient Goal Type Associated Problems Recent Progress Patient-Stated? Author I would like additional resources and support to manage my health and prevent future avoidable ED visits/hospital admissions Care Plan Increased risk of re-admission 40%( 3:02 PM BROADCAST CHECKER) Anastasia Talamantes, RN Note: Barriers: diagnosis of multiple, chronic, complex medical conditions, provider availability - wait time to complete appointments, etc. Strengths: motivated, engaged in care coordination Patient expressed understanding of goal: yes Action steps to achieve this goal: 1. I will follow up with my providers as scheduled/recommended - Pulmonology: TBD - Mental Health weekly - PT, OT and DIVORCE MEDIATOR, continuing through [facility] [place]: - PCP: 09/18/2024 & 10/15/2024. - Vascular [...] clinic with 24/7 after hours services available. Web Application Developer will remain available as needed. documented as of this encounter Visit Diagnoses Not on filedocumented in this encounter Additional Health Concerns Active Problems Noted Date Diagnosed Date Increased risk of re-admission 02/18/2024 Infection Onset Date Last Indicated Resolved Time Rule Out COVID-19 09/13/2024 09/13/2024 09/13/2024 12:31 PM BROADCAST CHECKER Assessment Noted Time PHQ-9 Depression Total Score: 14 024 11:46 AM CDT documented as of this encounter Care Teams Front Load Trash Truck Driver Relationship Specialty Start Date End Date Winston Villatoro OD [facility] [place] [address] [place], [place] [phone] PCP - Ophthalmology Ophthalmology 02/11/13 Denise Woodson APRN DIRECTOR GOVERNMENT [address] [facility] [place] [phone] PCP - General Family Practice 09/21/20 Denise Woodson APRN DIRECTOR GOVERNMENT [address] [address] [facility] [place] [phone] Assigned PCP 07/17/20 Usha Simon APRN DIRECTOR GOVERNMENT 909 [facility]2121[place], [place] [phone] Nurse Practitioner Neurological Surgery 01/24/24 Dangelo Salinas MD [address] [place], [place] [phone] Neurology 01/27/24 Anastasia Stearns, RN Lead Web Application Developer 02/06/24 Germaine Lopez, CHW Community Health Worker Primary Care - CC 02/18/24 Joya Lira R[facility] [address] [place], [place] [phone] Pharmacist Pharmacist 05/25/24 Joya Lira [facility] [address] [place] [address] Assigned MTM Pharmacist 06/08/24 Fabi Coates MD [address] [facility] [address] [place] [address] Genetics, Clinical 06/18/24 Robin Zepeda MD 909 [facility] [id number] [place], [place] 231855 Assigned Neuroscience Provider 07/08/24 08/07/24 Danna Cardenas PA-C 6405 [place] [address] Assigned Heart and Vascular Provider 07/08/24 Arthur Salas LICSW [address] [place] [address] Assigned Behavioral Health Provider 08/08/24 Randy Maradiaga DO 909 [place], [place] 006485 Assigned Neuroscience Provider 08/08/24 documented as of this encounter
--- OUTSIDE RECORDS SUMMARY | 2024-09-20 19:21 | XMS_ITS | Encounter Summary ---
Author Organization [place] Address [address] [place] [address] Care Team Providers Care Patrol Mother Name Role Phone Winston Villatoro OD Unavailable [phone] Denise Woodson APRN TV NEWS DIRECTOR Unavailable [phone] Denise Woodson APRN TV NEWS DIRECTOR Primary Care Provider Usha Simon APRN TV NEWS DIRECTOR Unavailable Dangelo Salinas MD Unavailable Anastasia Stearns RN Unavailable [phone] Germaine Lopez [facility] Unavailable Joya Lira [facility] Unavailable Joya Lira [facility] Unavailable [phone] Fabi Coates MD Unavailable [phone] Danna Cadrenas PA-C Unavailable [phone] Arthur Salas ELECTRICAL ENGINEERING TECHNOLOGIST Unavailable [phone] Randy Maradiaga DO Unavailable + Encounter Details Date Type Department Care Team (Late st Contact Info) Description 08/10/2024 3:[address] SUPERINTENDENT Virtual Visit [facility] Mental Health and Addiction [address] [place] [phone] Arthur Salas, [facility] [address] [place] [address] MONAE (generalized anxiety disorder) (Primary Dx); MDD [...] How often do you attend anglican or worship serv ices? Never 02/28/2024 Do [...] Recorded PHQ-2 Score 2 08/04/2024 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 [facility] Progress Note Patient Name: Alcon Zamora [...] stroke. She was then referred to this advertising copy writer before checking if she had another provider. She was referred for CBT even though the other therapist also used the modality. Patient and advertising copy writer concluded it would be better to return to her therapist in the community. Should she needs to work on her trauma, and should she find out her therapist is not doing trauma work, she will then reach out advertising copy writer to start EMDR. Patient is planning [...] previous therapist. MARA Higginbotham August 10, 2024 ET SUPERINTENDENT documented in this encounter Plan of Treatment Upcoming Encounters Date Type Department Care Team (Late st Contact Info) Description 09/25/2024 11:[address] SUPERINTENDENT Office Visit [facility] [address] [place] [address] Denise Woodson APRN TV NEWS DIRECTOR [address] [place], [place] [phone] 09/29/2024 9:[address] SUPERINTENDENT Virtual Visit [facility] Neurology [address] [phone] Randy Maradiaga, [address] [address] 10/09/2024 1:[address] SUPERINTENDENT Office Visit [facility] Heart [facility] 6405 [facility] [address] [place] [address] Danna Cardenas PA-C 8455 [place], [place] 203895 10/15/2024 11:[address] SUPERINTENDENT Office Visit [facility] [address] [place] [phone] Denise Woodson, BLANKMAKER TV NEWS DIRECTOR [address] [place] [address] 10/30/2024 4:[address] SUPERINTENDENT Virtual Visit [facility] Vascular Clinic [place] [address] [place] [phone] Lisa Zambrano MD [address] [place] [address] 12/29/2024 12:45 PM CDT Office Visit [facility] [address] [place], [place] [address] Explorer [address] [phone] Fbai Coates MD [address] [place] [address] 12/29/2024 1:45 PM CDT Office [facility]ty Clinic [address] [place], [place] [address] [address] [phone] Fabi Coates MD [address] [place] [address] 06/01/2025 11:15 AM CDT Appointment [facility] Specialty Care Center Imaging [address] [facility] [address] [place] [phone] Robin Zepeda MD [address] [place] [address] 06/04/2025 11:00 AM CDT Office Visit [facility] Neurosurgery [address] 3rd [place] [phone] Robin Zepeda MD [address] [place] [address] [place] [address] Usha Simon APRN TV NEWS DIRECTOR [address] [place] [address] [address] documented as of this encounter Goals Goal Patient Goal Type Associated Problems Recent Progress Patient-Stated? Author I would like additional resources and support to manage my health and prevent future avoidable ED visits/hospital admissions Care Plan Increased risk of re-admission 40%( 4 3:[address] SUPERINTENDENT) Anastasia Talamantes, RN Note: Barriers: diagnosis of multiple, chronic, complex medical conditions, provider availability - wait time to complete appointments, etc. Strengths: motivated, engaged in care coordination Patient expressed understanding of goal: yes Action steps to achieve this goal: 1. I will follow up with my providers as scheduled/recommended - Pulmonology: TBD - Mental Health weekly - PT, OT and HEAD OF GLOBAL STRATEGIC PARTNERSHIPS, continuing through [facility] [place]: - PCP: 09/18/2024 & 10/15/2024. - Vascular [...] with 24/7 after hours services available. Barrel Liner will remain available as needed. documented as [...] Total Score: 5 08/03/20 24 12:[address] SUPERINTENDENT documented as of this encounter Care Teams Patrol Mother Relationship Specialty Start Date End Date Winston Villatoro OD [facility] [place] [address] [place] [address] PCP - Ophthalmology Ophthalmology 02/11/13 Denise Woodson APRN TV NEWS DIRECTOR [address] [place] [address] PCP - General Family Practice 09/21/20 Denise Woodson APRN TV NEWS DIRECTOR [address] [place] [address] Assigned PCP 07/17/20 Usha Simon APRN TV NEWS DIRECTOR 9 [facility]2121[place], [place] [address] Nurse Practitioner Neurological Surgery 01/24/24 Dangelo Salinas MD [address] [place] [address] Neurology 01/27/24 Anastasia Stearns, RN Lead Barrel Liner 02/06/24 Germaine Lopez, CHW Community Health Worker Primary Care - CC 02/18/24 Joya Lira R[facility] [address] [place], [place] [phone] Pharmacist Pharmacist 05/25/24 Joya Lira [facility] [address] [place], [place] [phone] Assigned MTM Pharmacist 06/08/24 Fabi Coates MD [address] [place] [address] 75 [place], [place] [address] Genetics, Clinical 06/18/24 Danna Cardenas PA-C 6405 [place], [place] 276665 Assigned Heart and Vascular Provider 07/08/24 Arthur Salas LICSW [address] [address] Assigned Behavioral Health Provider 08/08/24 Randy Maradiaga DO [address] [place] [address] 845155 Assigned Neuroscience Provider 08/08/24 documented as of this encounter
--- OUTSIDE RECORDS SUMMARY | 2024-09-20 19:22 | XMS_ITS | Encounter Summary ---
Author Organization [place] Address [address] [place] [address] Care Team Providers Care Auto Detailer Name Role Phone Winston Villatoro OD Unavailable [phone] Denise Woodson APRN BOND CLERK Unavailable +[phone] Denise Woodson APRN BOND CLERK Primary Care Provider Usha Simon APRN BOND CLERK Unavailable + [phone] Dangelo Salinas MD Unavailable Anastasia Stearns RN Unavailable +[phone] Germaine Lopez CH Unavailable +[phone] Lisa Zambrano MD Unavailable + [phone] Raul Hoyos MD Unavailable Joya Lira [facility] Unavailable +[phone] Joya Lira [facility] Unavailable +[phone] Fabi Coates MD Unavailable [phone] Robin Catalan MD Unavailable +[phone] Danna Cardenas PA-C Unavailable +[phone] Felicita Desai RN Unavailable Unavailab Arthur Rios Unavailable +[phone] Randy Maradiaga DO Unavailable + Encounter Details Date Type Department Care Team (Late st Contact Info) Description 05/13/2024 MyC Medical Advice [facility] Care Coordination [facility] [address] [place] [phone] Anastasia Stearns, RN Social History Tobacco [...] How often do you attend hindu or jew serv ices? 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 file Not on file Not on file Not on file Not on file Not on file Not on file documented as of this encounter Plan of Treatment Upcoming Encounters Date Type Department Care Team (Late st Contact Info) Description 09/25/2024 11:00 AM BOTTLE MACHINE OPERATOR [facility] [address] [place] [phone] Denise Woodson, BARRERA BOND CLERK [address] [facility] [place], [place] [address] 09/29/2024 9:00 AM BOTTLE MACHINE OPERATOR Virtual Visit [facility] Neurology [address] 3rd [place] [phone] Randy Maradiaga, [address] [id number] 10/09/2024 1:20 PM BOTTLE MACHINE OPERATOR Office Visit [facility] Heart [facility] 6405 [facility] [address] [place] [phone] Danna Cardenas PA-C 6405 [place] [address] 10/15/2024 11:00 AM BOTTLE MACHINE OPERATOR Office Visit [facility] [address] [facility] [place] [phone] Denise Woodson, BARRERA BOND CLERK [address] [facility] [place] [address] 10/30/2024 4:00 PM BOTTLE MACHINE OPERATOR Virtual Visit [facility] Vascular [place] [address] [place] [phone] Lisa Zambrano MD [address] [place] [address]35 12/29/2024 12:45 PM CDT Office Visit [facility] [address] [facility] [employer] [address]th [address],[place] [phone] Fabi Coates MD 420 [facility] 75 [place] [address] 12/29/2024 1:45 PM CDT Office Visit [facility] 2450 [facility] [employer] 12th Fl[address],[place] [phone] Fabi Coates MD [address] [address] 06/01/2025 11:15 AM CDT Appointment [facility] [address] [place] [phone] Robin Zepeda MD [address] [place] [address] 06/04/2025 11:00 AM CDT Office Visit [facility] Neuro[facility] [place] [address] [place] [address] 3rd [place] [phone] Robin Zepeda MD [address] [place] [address] [phone] Usha Simon APRN [facility] [address] [id number] documented as of this encounter Goals Goal Patient Goal Type Associated Problems Recent Progress Patient-Stated? Author I would like additional resources and support to manage my health and prevent future avoidable ED visits/hospital admissions Care Plan Increased risk of re-admission 40%( 4 3:02 PM BOTTLE MACHINE OPERATOR) Anastasia Talamantes, RN Note: Barriers: diagnosis of multiple, chronic, complex medical conditions, provider availability - wait time to complete appointments, etc. Strengths: motivated, engaged in care coordination Patient expressed understanding of goal: yes Action steps to achieve this goal: 1. I will follow up with my providers as scheduled/recommended - Pulmonology: TBD - Mental Health weekly - PT, OT and BRAILLE PROOFREADER, continuing through [facility]: - PCP: 09/18/2024 & 10/15/2024. - Vascular [...] clinic with 24/7 after hours services available. Edi Specialist will remain available as needed. documented as of this encounter Visit Diagnoses Not on filedocumented in this encounter Additional Health Concerns Active Problems Noted Date Diagnosed Date Increased risk of re-admission 02/18/2024 Infection Onset Date Last Indicated Resolved Time Rule Out COVID-19 09/13/2024 09/13/2024 09/13/2024 12:31 PM BOTTLE MACHINE OPERATOR Assessment Noted Time PHQ-9 Depression Total Score: 5 03/17/20 24 9:45 AM CDT documented as of this encounter Care Teams Auto Detailer Relationship Specialty Start Date End Date Winston Villatoro OD [facility] [address] [place] [address] PCP - Ophthalmology Ophthalmology 02/11/13 Denise Woodson APRN BOND CLERK [address] [address] [address] PCP - General Family Practice 09/21/20 Denise Woodson APRN BOND CLERK [address] [address] [address] Assigned PCP 07/17/20 Usha Simon APRN CNP [address] 101[address] Nurse Practitioner Neurological Surgery 01/24/24 Dangelo Salinas MD [address] [place], [place] [id number] Neurology 01/27/24 Anastasia Stearns, RN Lead Edi Specialist 02/06/24 Germaine Lopez, W Community Health Worker Primary Care - CC 02/18/24 Lisa Zambrano MD 6405 [facility] [address] [place], [place] 405[address] Assigned Heart and Vascular Provider 05/08/24 07/07/24 Raul Hoyos MD [address] [place] [address] Assigned Neuroscience Provider 05/08/24 07/07/24 Joya Lira RPH [address] [address] Pharmacist Pharmacist 05/25/24 Joya Lira RPH [address] [place] [address] Assigned MTM Pharmacist 06/08/24 Fabi Coates MD [address] [facility] [address] [place] [address] Genetics, Clinical 06/18/24 Robin Zepeda MD 909 [facility] [id number] [place] [address] Assigned Neuroscience Provider 07/08/24 08/07/24 Danna Cardenas PA-C 6405 [place] [address] Assigned Heart and Vascular Provider 07/08/24 Felicita Desai, RN Lead Edi Specialist 07/14/24 07/28/24 Arthur Salas [facility] [address] [place] [address] Assigned Behavioral Health Provider 08/08/24 Randy Maradiaga DO 9 [place] [address] Assigned Neuroscience Provider 08/08/24 documented as of this encounter
--- OUTSIDE RECORDS SUMMARY | 2024-09-20 19:22 | XMS_ITS | Encounter Summary ---
Author Organization [facility] Address [address] [place] [address] Care Team Providers Care Engagement Engineer Name Role Phone Winston Villatoro OD Unavailable [phone] Denise Woodson APRN WIND OPERATIONS SUPERVISOR Unavailable [phone] Denise Woodson APRN WIND OPERATIONS SUPERVISOR Primary Care Provider Usha Simon APRN WIND OPERATIONS SUPERVISOR Unavailable + [phone] Dangelo Salinas MD Unavailable Anastasia Stearns RN Unavailable Germaine Lopez CH Unavailable [phone] Lisa Zambrano MD Unavailable + [phone] Raul Hoyos MD Unavailable Joya Lira [facility] Unavailable [phone] Joya Lira [facility] Unavailable +[phone] Fabi Coates MD Unavailable [phone] Robin Catalan MD Unavailable [phone] Danna Cardenas PA-C Unavailable +[phone] Felicita Desai RN Unavailable Unavailab Arthur Rios Unavailable +[phone] Randy Maradiaga DO Unavailable + Encounter Details [...] How often do you attend scientologist or yazdanism serv ices? Never 02/28/2024 Do [...] Answer Date Recorded PHQ-2 Score 2 05/05/2024 [facility] of Occupat ional [...] in an overnight intermediate, or couch-surfing.) Yes 05/16/2024 Are you worried [...] on file Legal Sex Female 4:05 AM PERL SOFTWARE ENGINEER Gender Identity Not on file Sexual [...] st Contact Info) Description 09/25/2024 11:00 AM PERL SOFTWARE ENGINEER Office Visit [facility] [address] [place] [address] Denise Woodson APRN [facility] [address] [place] [address] 09/29/2024 9:00 AM PERL SOFTWARE ENGINEER Virtual Visit [facility] Neurology [facility] 909 [facility] [address] 3rd [place] [phone] Randy Maradiaga, [address] [place] [address] 10/09/2024 1:20 PM PERL SOFTWARE ENGINEER Office Visit [facility] Heart [facility] 6405 [facility] [address] [place] [phone] Danna Cardenas PA-C 6405 [place] [address] 10/15/2024 11:00 AM PERL SOFTWARE ENGINEER Office Visit [facility] [address] [place] [phone] Chintan DeniseBARRERA diaz WIND OPERATIONS SUPERVISOR [address] [place] [address] 10/30/2024 4:00 PM PERL SOFTWARE ENGINEER Virtual Visit [facility] Vascular Clinic [place] [address] [place] [phone] Lisa Zambrano MD [address] [place] [address] 12/29/2024 12:45 PM CDT Office Visit [facility] 24[address] [facility] [address]th Fl[address],[place] [phone] Fabi Coates MD [address] [place] [address] [facility] 75 [place], [place] [address] 12/29/2024 1:45 PM CDT Office Visit [facility] 2450 [facility] Explorer [facility] 12th Flr,[place] [phone] Fabi Coates MD [address] [place] [address] [facility] 75 [place] [address] 06/01/2025 11:15 AM CDT Appointment [facility] [address] [place] [phone] Robin Zepeda MD [address] [place] [address] 06/04/2025 11:00 AM CDT Office Visit [facility] Neurosurgery [address] 3rd [place] [address] Robin Zepeda MD [address] [place] [address] Usha Simon APRN [address] [address] documented as of this encounter Goals Goal Patient Goal Type Associated Problems Recent Progress Patient-Stated? Author I would like additional resources and support to manage my health and prevent future avoidable ED visits/hospital admissions Care Plan Increased risk of re-admission 40%( 4 3:02 PM PERL SOFTWARE ENGINEER) Anastasia Talamantes, RN Note: Barriers: diagnosis of multiple, chronic, complex medical conditions, provider availability - wait time to complete appointments, etc. Strengths: motivated, engaged in care coordination Patient expressed understanding of goal: yes Action steps to achieve this goal: 1. I will follow up with my providers as scheduled/recommended - Pulmonology: TBD - Mental Health weekly - PT, OT and BUSINESS OFFICE REPRESENTATIVE, continuing through [facility]: - PCP: 09/18/2024 & 10/15/2024. - Vascular [...] clinic with 24/ after hours services available. Wire Drawing Setter will remain available as needed. documented as of this encounter Visit Diagnoses Not on filedocumented in this encounter Additional Health Concerns Active Problems Noted Date Diagnosed Date Increased risk of re-admission 02/18/2024 Infection Onset Date Last Indicated Resolved Time Rule Out COVID-19 09/13/2024 09/13/2024 09/13/2024 12:31 PM PERL SOFTWARE ENGINEER Assessment Noted Time PHQ-9 Depression Total Score: 5 03/17/20 24 9:45 AM CDT documented as of this encounter Care Teams Engagement Engineer Relationship Specialty Start Date End Date Winston Villatoro OD [facility] 701 [facility] [address] [place] [address] PCP - Ophthalmology Ophthalmology 02/11/13 Denise Woodson APRN WIND OPERATIONS SUPERVISOR [address] [place] [address] PCP - General Family Practice 09/21/20 Denise Woodson APRN WIND OPERATIONS SUPERVISOR [address] [place] [address] Assigned PCP 07/17/20 Usha Simon APRN WIND OPERATIONS SUPERVISOR 909 [facility]2121[place], [place] [address] Nurse Practitioner Neurological Surgery 01/24/24 Dangelo Salinas MD [address] [place] [address] Neurology 01/27/24 Anastasia Stearns, RN Lead Wire Drawing Setter 02/06/24 Germaine Lopez, W Community Health Worker Primary Care - CC 02/18/24 Lisa Zambrano MD 6405 [facility] [address] [place] [address] Assigned Heart and Vascular Provider 05/08/24 07/07/24 Raul Hoyos MD [address] [place] [address] Assigned Neuroscience Provider 05/08/24 07/07/24 Joya Lira Joleen [address] [place] [address] Pharmacist Pharmacist 05/25/24 Joya Lira [facility] [address] [place] [address] Assigned MTM Pharmacist 06/08/24 Fabi Coates MD [address] [place] [address] 75 [place] [address] Genetics, Clinical 06/18/24 Robin Zepeda MD [address] [place] [address] Assigned Neuroscience Provider 07/08/24 08/07/24 Danna Cardenas PA-C 6405 [place] [address] Assigned Heart and Vascular Provider 07/08/24 Felicita Desai, RN Lead Wire Drawing Setter 07/14/24 07/28/24 Arthur Salas, [facility] [address] [place] [address] Assigned Behavioral Health Provider 08/08/24 Randy Maradiaga DO 909 [place] [address] Assigned Neuroscience Provider 08/08/24 documented as of this encounter
--- OUTSIDE RECORDS SUMMARY | 2024-09-20 19:22 | XMS_ITS | Encounter Summary ---
Author Organization [place] Address [address] [place] [address] Care Team Providers Care Clock And Watch Hands Dipper Name Role Phone Winston Villatoro OD Unavailable [phone] Denise Woodson APRN VESSEL WELDER Unavailable [phone] Denise Woodson APRN VESSEL WELDER Primary Care Provider Usha Simon APRN VESSEL WELDER Unavailable + [phone] Dangelo Salinas MD Unavailable Anastasia Stearns RN Unavailable Germaine Lopez CHW Unavailable [phone] Robin Zepeda MD Unavailable [phone] Lisa Zambrano MD Unavailable Raul Hoyos MD Unavailable Joya Lira RP Unavailable [phone] Joya Lira RPH Unavailable +[phone] Fabi Coates MD Unavailable [phone] Robin Zepeda MD Unavailable [phone] Danna CardenasC Unavailable [phone] Felicita Desai RN Unavailable Unavailab Arthur Rios Unavailable +[phone] Randy Maradiaga DO Unavailable + Encounter Details Date Type Department Care Team (Late st Contact Info) Description 04/02/2024 Ajay Medical Advice [facility] Neurology Clinic [address] [place] [address] Liliane Cobos Social History Tobacco [...] Date Recorded PHQ-2 Score 0 03/17/2024 [facility] [place] of Occupat ional Health - Occupational Stress [...] on file Legal Sex Female 4:05 AM ENROLLMENT MANAGEMENT VICE PRESIDENT Gender Identity Not on file Sexual Orientation Not on file 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 Not on file Not on file Not on file Not on file Not on file Not on file documented as of this encounter Plan of Treatment Upcoming Encounters Date Type Department Care Team (Late st Contact Info) Description 09/25/2024 11:00 AM ENROLLMENT MANAGEMENT VICE PRESIDENT [facility] [address] [place] [phone] Denise Woodson, BARRERA VESSEL WELDER [address] [facility] [place], [place] [phone] 09/29/2024 9:00 AM ENROLLMENT MANAGEMENT VICE PRESIDENT Virtual Visit [facility] Neurology [address] 3rd [place] [address] Randy Maradiaga, [address] [address] 10/09/2024 1:20 PM ENROLLMENT MANAGEMENT VICE PRESIDENT Office Visit [facility] Heart [facility] 6405 [facility] [address] [place] [phone] Danna Cardenas PA-C 6405 [place] [address] 10/15/2024 11:00 AM ENROLLMENT MANAGEMENT VICE PRESIDENT Office Visit [facility] [address] [place] [phone] Denise Woodson, BARRERA VESSEL WELDER [address] [facility] [place] [address] 10/30/2024 4:00 PM ENROLLMENT MANAGEMENT VICE PRESIDENT Virtual Visit [facility] Vascular [facility] [place] [address] [place] [phone] Lisa Zambrano MD [address] [place] [address] 12/29/2024 12:45 PM CDT Office Visit [facility] 2450 [facility] 12th Flr,[place] [phone] Fabi Coates MD 420 [facility] 75 [place] [address] 12/29/2024 1:45 PM CDT Office Visit [facility] 2450 [facility] 12th Flr,[place] [address] Fabi Coates MD 420 [facility] 75 [place] [address] 06/01/2025 11:15 AM CDT Appointment [facility] [address] [place] [address] Robin Zepeda MD [address] [place] [address] 06/04/2025 11:00 AM CDT Office Visit [facility] Neurosurgery [facility] [place] [address] [place] [address] 3rd [place] [phone] Robin Zepeda MD [address] [place] [address]60[address] Usha Simon APRN VESSEL WELDER [address] 3019[address] documented as of this encounter Goals Goal Patient Goal Type Associated Problems Recent Progress Patient-Stated? Author I would like additional resources and support to manage my health and prevent future avoidable ED visits/hospital admissions Care Plan Increased risk of re-admission 40%( 4 3:02 PM ENROLLMENT MANAGEMENT VICE PRESIDENT) Anastasia Talamantes, RN Note: Barriers: diagnosis of multiple, chronic, complex medical conditions, provider availability - wait time to complete appointments, etc. Strengths: motivated, engaged in care coordination Patient expressed understanding of goal: yes Action steps to achieve this goal: 1. I will follow up with my providers as scheduled/recommended - Pulmonology: TBD - Mental Health weekly - PT, OT and SAFEKEEPING CLERK, continuing through [facility]: - PCP: 09/18/2024 & 10/15/2024. - Vascular [...] clinic with 24/7 after hours services available. Garage Door Opener Installer will remain available as needed. documented as of this encounter Visit Diagnoses Not on filedocumented in this encounter Additional Health Concerns Active Problems Noted Date Diagnosed Date Increased risk of re-admission 02/18/2024 Infection Onset Date Last Indicated Resolved Time Rule Out COVID-19 09/13/2024 09/13/2024 09/13/2024 12:31 PM ENROLLMENT MANAGEMENT VICE PRESIDENT Assessment Noted Time PHQ-9 Depression Total Score: 5 03/17/20 24 9:45 AM CDT documented as of this encounter Care Teams Clock And Watch Hands Dipper Relationship Specialty Start Date End Date Winston Villatoro OD [facility] [address] [place] [address] PCP - Ophthalmology Ophthalmology 02/11/13 Denise Woodson APRN VESSEL WELDER [address] [address] [address] PCP - General Family Practice 09/21/20 Denise Woodson APRN VESSEL WELDER [address] [address] [address] Assigned PCP 07/17/20 Usha Simon APRN VESSEL WELDER [address] [address] Nurse Practitioner Neurological Surgery 01/24/24 Dangelo Salinas MD [address] [place], [place] [address] Neurology 01/27/24 Anastasia Stearns, RN Lead Garage Door Opener Installer 02/06/24 Germaine Lopez, W Community Health Worker Primary Care - CC 02/18/24 Robin Zepeda MD [address] [address] Assigned Neuroscience Provider 03/08/24 05/07/24 Lisa Zambrano MD [address] [facility] [address] [address] [place] [address] Assigned Heart and Vascular Provider 05/08/24 07/07/24 Raul Hoyos MD [address] [address] Assigned Neuroscience Provider 05/08/24 07/07/24 Joya Lira RPH [address] [place] [address] Pharmacist Pharmacist 05/25/24 Joya Lira RPH [address] [place] [address] Assigned MTM Pharmacist 06/08/24 Fabi Coates MD [address] [place] [address] 75 [place] [address] Genetics, Clinical 06/18/24 Robin Zepeda MD 9 [facility] [id number] [place] [address] Assigned Neuroscience Provider 07/08/24 08/07/24 Danna Cardenas PA-C 6405 [place] [address] Assigned Heart and Vascular Provider 07/08/24 Felicita Desai, GEMA Lead Garage Door Opener Installer 07/14/24 07/28/24 Arthur Salas, [facility] [address] [place] [address] Assigned Behavioral Health Provider 08/08/24 Randy Maradiaga DO [address] [place] [address] Assigned Neuroscience Provider 08/08/24 documented as of this encounter
--- OUTSIDE RECORDS SUMMARY | 2024-09-20 19:22 | XMS_ITS | Encounter Summary ---
Author Organization [place] Address [address] [place] [address] Care Team Providers Care Alteration Worker Name Role Phone Winston Villatoro OD Unavailable [phone] Denise Woodson APRN SENIOR BUSINESS ANALYST Unavailable +[phone] Denise Woodson APRN SENIOR BUSINESS ANALYST Primary Care Provider Usha Simon APRN SENIOR BUSINESS ANALYST Unavailable + [phone] Dangelo Salinas MD Unavailable Anastasia Stearns RN Unavailable [phone] Germaine Lopez CH Unavailable +[phone] Lisa Zambrano MD Unavailable + [phone] Raul Hoyos MD Unavailable Joya Lira [facility] Unavailable +[phone] Joya Lira [facility] Unavailable +[phone] Fabi Coates MD Unavailable [phone] Robin Catalan MD Unavailable +[phone] Danna Cardenas PA-C Unavailable +[phone] Felicita Desai RN Unavailable Unavailab Arthur Rios Unavailable +[phone] Randy Maradiaga DO Unavailable + Encounter Details Date Type Department Care Team (Late st Contact Info) Description 05/27/2024 MyC Medical Advice Se [facility] [address], [address] [place] [address] Rohit Barcenas MD 420 [facility] 295 [place] [address] Social History Tobacco Use Types [...] How often do you attend jain or jew serv ices? 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 [address] [place] [phone] Denise Woodson, BARRERA SENIOR BUSINESS ANALYST [address] [facility] [place], [place] [address] 09/29/2024 9:00 AM LANDSCAPE TECHNICIAN Virtual Visit [facility] Neurology [address] 3rd [place] [address] Randy Maradiaga, [address] [address] 10/09/2024 1:20 PM LANDSCAPE TECHNICIAN Office Visit [facility] Heart [facility] 6405 [facility] [address] [place] [phone] Danna Cardenas PA-C 6405 [place] [address] 10/15/2024 11:00 AM LANDSCAPE TECHNICIAN Office Visit [facility] [address] [place] [phone] Denise Woodson, BARRERA SENIOR BUSINESS ANALYST [address] [place] [address] 10/30/2024 4:00 PM LANDSCAPE TECHNICIAN Virtual Visit [facility] Vascular [facility] [address] [place] [phone] Lisa Zambrano MD [address] [place] [address] 12/29/2024 12:45 PM CDT Office Visit [facility] Critical access hospital0 [facility] Explorer [address] [phone] Fabi Coates MD [address] [address] 12/29/2024 1:45 PM CDT Office Visit [facility] [address] [facility] [address] [phone] Fabi Coates MD [address] [address] 06/01/2025 11:15 AM CDT Appointment [facility] Imaging [address] [place] [phone] Robin Zepeda MD [address] [place] [address] 06/04/2025 11:00 AM CDT Office Visit [facility] Neurosurgery [address] 3rd [place] [address] Robin Zepeda MD [address] [place] [address] Usha Simon APRN [address] [address] documented as of this encounter Goals Goal Patient Goal Type Associated Problems Recent Progress Patient-Stated? Author I would like additional resources and support to manage my health and prevent future avoidable ED visits/hospital admissions Care Plan Increased risk of re-admission 40%( 4 3:02 PM LANDSCAPE TECHNICIAN) Anastasia Talamantes, RN Note: Barriers: diagnosis of multiple, chronic, complex medical conditions, provider availability - wait time to complete appointments, etc. Strengths: motivated, engaged in care coordination Patient expressed understanding of goal: yes Action steps to achieve this goal: 1. I will follow up with my providers as scheduled/recommended - Pulmonology: TBD - Mental Health weekly - PT, OT and EVENTS SOLUTIONS CONSULTANT, continuing through [facility] [place]: - PCP: 09/18/2024 & 10/15/2024. - Vascular [...] clinic with 24/ after hours services available. Iron Pellet Tester will remain available as needed. documented as of this encounter Visit Diagnoses Not on filedocumented in this encounter Additional Health Concerns Active Problems Noted Date Diagnosed Date Increased risk of re-admission 02/18/2024 Infection Onset Date Last Indicated Resolved Time Rule Out COVID-19 09/13/2024 09/13/2024 09/13/2024 12:31 PM LANDSCAPE TECHNICIAN Assessment Noted Time PHQ-9 Depression Total Score: 5 03/17/20 24 9:45 AM CDT documented as of this encounter Care Teams Alteration Worker Relationship Specialty Start Date End Date Winston Villatoro OD [facility] [place] [address] [place] [address] PCP - Ophthalmology Ophthalmology 02/11/13 Denise Woodson APRN SENIOR BUSINESS ANALYST [address] [address] [address] PCP - General Family Practice 09/21/20 Denise Woodson APRN SENIOR BUSINESS ANALYST [address] [place] [address] Assigned PCP 07/17/20 Usha Simon APRN CNP [address] [address] Nurse Practitioner Neurological Surgery 01/24/24 Dangelo Salinas MD [address] [place] [address] Neurology 01/27/24 Anastasia Stearns, RN Lead Iron Pellet Tester 02/06/24 Germaine Lopez, W Community Health Worker Primary Care - CC 02/18/24 Lisa Zambrano MD 6405 [facility] [address] [place] [address] Assigned Heart and Vascular Provider 05/08/24 07/07/24 Raul Hoyos MD [address] [address] Assigned Neuroscience Provider 05/08/24 07/07/24 Joya Lira RPH [address] [place] [address] Pharmacist Pharmacist 05/25/24 Joya Lira RPH [address] [place] [address] Assigned MTM Pharmacist 06/08/24 Fabi Coates MD [address] [place] [address] 75 [place] [address] Genetics, Clinical 06/18/24 Robin Zepeda MD 909 [facility] [id number] [place] [address] Assigned Neuroscience Provider 07/08/24 08/07/24 Danna Cardenas PA-C 6405 [place] [address] Assigned Heart and Vascular Provider 07/08/24 Felicita Desai, RN Lead Iron Pellet Tester 07/14/24 07/28/24 Arthur Salas [facility] [address] [place] [address] Assigned Behavioral Health Provider 08/08/24 Randy Maradiaga DO 9 [place] [address] Assigned Neuroscience Provider 08/08/24 documented as of this encounter
--- OUTSIDE RECORDS SUMMARY | 2024-09-20 19:22 | XMS_ITS | Encounter Summary ---
Author Organization [place] Address [address] [place] [address] Care Team Providers Care Project Management Name Role Phone Winston Villatoro OD Unavailable [phone] Denise Woodson APRN BUSINESS SUPPORT MANAGER Unavailable [phone] Denise Woodson APRN BUSINESS SUPPORT MANAGER Primary Care Provider Usha Simon APRN BUSINESS SUPPORT MANAGER Unavailable + [phone] Dangelo Salinas MD Unavailable Anastasia Stearns RN Unavailable Germaine Lopez CHW Unavailable +[phone] Robin Zepeda MD Unavailable Lisa Zambrano MD Unavailable Raul Hoyos MD Unavailable Joya Lira RP Unavailable [phone] Jyoa Lira RPH Unavailable Fabi Coates MD Unavailable [phone] Robin Zepeda MD Unavailable Danna CardenasC Unavailable [phone] Felicita Desai RN Unavailable Unavailab Arthur Rios Unavailable +[phone] Randy Maradiaga DO Unavailable + Encounter Details Date Type Department Care Team (Late st Contact Info) Description 03/16/2024 Ajay Medical Advice [facility] Neurology Clinic [address] [place] [phone] Ora Bazan Social History Tobacco Use Types [...] How often do you attend christian or yazidi serv ices? 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 Not on file Not on file Not on file Not on file documented as of this encounter Plan of Treatment Upcoming Encounters Date Type Department Care Team (Late st Contact Info) Description 09/25/2024 11:00 AM MARINE FUEL DOCK ATTENDANT Office Visit [facility] [address] [place] [phone] Denise Woodson APRN BUSINESS SUPPORT MANAGER [address] [facility] [place] [address] 09/29/2024 9:00 AM MARINE FUEL DOCK ATTENDANT Virtual Visit [facility] Neurology [address] 3rd [place] [phone] Randy Maradiaga, [address] [address] 10/09/2024 1:20 PM MARINE FUEL DOCK ATTENDANT Office Visit [facility] Heart [facility] 6405 [facility] [address] [place] [phone] Danna Cardenas PA-C 6405 [place] [address] 10/15/2024 11:00 AM MARINE FUEL DOCK ATTENDANT Office Visit [facility] [address] [facility] [place] [phone] Denise Woodson APRN BUSINESS SUPPORT MANAGER [address] [place] [place], [place] [address] 10/30/2024 4:00 PM MARINE FUEL DOCK ATTENDANT Virtual Visit [facility] Vascular [facility] [address] [place] [phone] Lisa Zambrano MD [address] [place] [id number] 12/29/2024 12:45 PM CDT Office Visit [facility] [address] [facility] [address],[place] [phone] Fabi Coates MD 420 [facility] 75 [place] [address] 12/29/2024 1:45 PM CDT Office Visit [facility] [address] [facility] [address] [facility] [address],[place] [address] Fabi Coates MD [address] [address] 06/01/2025 11:15 AM CDT Appointment [facility] Imaging [address] [place] [phone] Robin Zepeda MD [address] [place] [address] 06/04/2025 11:00 AM CDT Office Visit [facility] Neurosurgery Clinic [facility] [address] [place] [address] 3rd [place] [phone] Robin Zepeda MD [address] [place] [address] Usha Simon APRN BUSINESS SUPPORT MANAGER [address] [place] [address] 319775 documented as of this encounter Goals Goal Patient Goal Type Associated Problems Recent Progress Patient-Stated? Author I would like additional resources and support to manage my health and prevent future avoidable ED visits/hospital admissions Care Plan Increased risk of re-admission 40%( 4 3:02 PM MARINE FUEL DOCK ATTENDANT) Anastasia Talamantes, RN Note: Barriers: diagnosis of multiple, chronic, complex medical conditions, provider availability - wait time to complete appointments, etc. Strengths: motivated, engaged in care coordination Patient expressed understanding of goal: yes Action steps to achieve this goal: 1. I will follow up with my providers as scheduled/recommended - Pulmonology: TBD - Mental Health weekly - PT, OT and PATTERN ASSEMBLER, continuing through [facility] [place]: - PCP: 09/18/2024 & 10/15/2024. - Vascular [...] clinic with 24/7 after hours services available. President And Ceo will remain available as needed. documented as of this encounter Visit Diagnoses Not on filedocumented in this encounter Additional Health Concerns Active Problems Noted Date Diagnosed Date Increased risk of re-admission 02/18/2024 Infection Onset Date Last Indicated Resolved Time Rule Out COVID-19 09/13/2024 09/13/2024 09/13/2024 12:31 PM MARINE FUEL DOCK ATTENDANT Assessment Noted Time PHQ-9 Depression Total Score: 16 024 3:27 PM CDT documented as of this encounter Care Teams Project Management Relationship Specialty Start Date End Date Winston Villatoro OD [facility] [address] [place] [address] PCP - Ophthalmology Ophthalmology 02/11/13 Denise Woodson APRN BUSINESS SUPPORT MANAGER [address] [address] [address] PCP - General Family Practice 09/21/20 Denise Woodson APRN BUSINESS SUPPORT MANAGER [address] [address] [address] Assigned PCP 07/17/20 Usha Simon APRN BUSINESS SUPPORT MANAGER [address] [address] Nurse Practitioner Neurological Surgery 01/24/24 Dangelo Salinas MD [address] [place], [place] [phone] Neurology 01/27/24 Anastasia Stearns, RN Lead President And Ceo 02/06/24 Germaine Lopez, W Community Health Worker Primary Care - CC 02/18/24 Robin Zepeda MD [address] [address] Assigned Neuroscience Provider 03/08/24 05/07/24 Lisa Zambrano MD [address] [place] [address] Assigned Heart and Vascular Provider 05/08/24 07/07/24 Raul Hoyos MD [address] [address] Assigned Neuroscience Provider 05/08/24 07/07/24 Joya Lira RPH [address] [address] Pharmacist Pharmacist 05/25/24 Joya Lira RPH [address] [place] [address] Assigned MTM Pharmacist 06/08/24 Fabi Coates MD [address] [place] [address] 75 [place] [address] Genetics, Clinical 06/18/24 Robin Zepeda MD 9 [facility] [id number] [place] [address] Assigned Neuroscience Provider 07/08/24 08/07/24 Danna Cardenas PA-C 6405 [place] [address] Assigned Heart and Vascular Provider 07/08/24 Felicita Desai, RN Lead President And Ceo 07/14/24 07/28/24 Arthur Salas, [facility] [address] [place] [address] Assigned Behavioral Health Provider 08/08/24 Randy Maradiaga DO [address] [place] [address] Assigned Neuroscience Provider 08/08/24 documented as of this encounter
--- OUTSIDE RECORDS SUMMARY | 2024-09-20 19:22 | XMS_ITS | Encounter Summary ---
Author Organization [facility] Address [address] [place] [address] Care Team Providers Care Dumping Machine Operator Name Role Phone Winston Villatoro OD Unavailable [phone] Denise Woodson APRN YARN SPOOLER Unavailable +[phone] Denise Woodson APRN YARN SPOOLER Primary Care Provider Usha Simon APRN YARN SPOOLER Unavailable + [phone] Dangelo Salinas MD Unavailable Anastasia Stearns RN Unavailable [phone] Germaine Lopez CH Unavailable [phone] Lisa Zambrano MD Unavailable + [phone] Raul Hoyos MD Unavailable Joya Lira [facility] Unavailable [phone] Joya Lira [facility] Unavailable +[phone] Fabi Coates MD Unavailable [phone] Robin Catalan MD Unavailable [phone] Danna Cardenas PA-C Unavailable +[phone] Felicita Desai RN Unavailable Unavailab Arthur Rios Unavailable +[phone] Randy Maradiaga DO Unavailable + Encounter Details Date Type Department Care Team (Late st Contact Info) Description 05/21/2024 MyC Medical Advice [facility] [address] [place] [address] Qing Copeland Social History Tobacco [...] How often do you attend adventism or confucianist serv ices? 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 Not on file Not on file Not on file Not on file Not on file Not on file Not on file documented as of this encounter Plan of Treatment Upcoming Encounters Date Type Department Care Team (Late st Contact Info) Description 09/25/2024 11:00 AM PROPELLANT CHARGE LOADER Office Visit [facility] [address] [place] [phone] Denise Woodson, BARRERA YARN SPOOLER [address] [place], [place] [phone] 09/29/2024 9:00 AM PROPELLANT CHARGE LOADER Virtual Visit [facility] Neurology [address]rd [place] [phone] Randy Maradiaga, [address] [address] 10/09/2024 1:20 PM PROPELLANT CHARGE LOADER Office Visit [facility] Heart [facility] 6405 [facility] [address] [place] [phone] Danna Cardenas PA-C 6405 [place], [place] [address] 10/15/2024 11:00 AM PROPELLANT CHARGE LOADER Office Visit [facility] [address] [place] [phone] Denise Woodson, BARRERA YARN SPOOLER [address] [place] [address] 10/30/2024 4:00 PM PROPELLANT CHARGE LOADER Virtual Visit [facility] Vascular [place] [address] [place] [phone] Lisa Zambrano MD [address] [place] [address] 12/29/2024 12:45 PM CDT Office Visit [facility] [address] [facility] [address],[place] [phone] Fabi Coates MD 420 [facility] 75 [place] [address] 12/29/2024 1:45 PM CDT Office Visit [facility] 2450 [facility] Explorer [facility] [address],[place] [phone] Fabi Coates MD [address] [facility] [address] [place] [address] 06/01/2025 11:[address] [facility] Imaging [address] [place] [place] [phone] Robin Zepeda MD [address] [place] [address] 06/04/2025 11:00 AM CDT Office Visit [facility] Neurosurgery Clinic [address]rd [place] [phone] Robin Zepeda MD [address] [place] [address] Usha Simon APRN [address] [address] documented as of this encounter Goals Goal Patient Goal Type Associated Problems Recent Progress Patient-Stated? Author I would like additional resources and support to manage my health and prevent future avoidable ED visits/hospital admissions Care Plan Increased risk of re-admission 40%( 4 3:02 PM PROPELLANT CHARGE LOADER) Anastasia Talamantes, RN Note: Barriers: diagnosis of multiple, chronic, complex medical conditions, provider availability - wait time to complete appointments, etc. Strengths: motivated, engaged in care coordination Patient expressed understanding of goal: yes Action steps to achieve this goal: 1. I will follow up with my providers as scheduled/recommended - Pulmonology: TBD - Mental Health weekly - PT, OT and ACTIVITIES SPECIALIST, continuing through [facility] [place]: - PCP: 09/18/2024 & 10/15/2024. - Vascular [...] clinic with 24/7 after hours services available. Personnel Quality Assurance Auditor will remain available as needed. documented as of this encounter Visit Diagnoses Not on filedocumented in this encounter Additional Health Concerns Active Problems Noted Date Diagnosed Date Increased risk of re-admission 02/18/2024 Infection Onset Date Last Indicated Resolved Time Rule Out COVID-19 09/13/2024 09/13/2024 09/13/2024 12:31 PM PROPELLANT CHARGE LOADER Assessment Noted Time PHQ-9 Depression Total Score: 5 03/17/20 24 9:45 AM CDT documented as of this encounter Care Teams Dumping Machine Operator Relationship Specialty Start Date End Date Winston Villatoro OD [facility] [address] [place] [address] PCP - Ophthalmology Ophthalmology 02/11/13 Denise Woodson APRN YARN SPOOLER [address] [address] [address] PCP - General Family Practice 09/21/20 Denise Woodson APRN YARN SPOOLER [address] [address] [address] Assigned PCP 07/17/20 Usha Simon APRN YARN SPOOLER 909 [facility]121CJ [place] [address] Nurse Practitioner Neurological Surgery 01/24/24 Dangelo Salinas MD [address] [place] [address] Neurology 01/27/24 Anastasia Stearns, RN Lead Personnel Quality Assurance Auditor 02/06/24 Germaine Lopez, W Community Health Worker Primary Care - CC 02/18/24 Lisa Zambrano MD 6405 [facility] [address] [place] [address] Assigned Heart and Vascular Provider 05/08/24 07/07/24 Raul Hoyos MD 909 [id number] [place] [address] Assigned Neuroscience Provider 05/08/24 07/07/24 Joya Lira RPH [address] [place] [address] Pharmacist Pharmacist 05/25/24 Joya Lira [facility] [address] [place] [address] Assigned MTM Pharmacist 06/08/24 Fabi Coates MD [address] [facility] [address] [place] [address] Genetics, Clinical 06/18/24 Robin Zepeda MD 909 [facility] [id number] [place] [address] Assigned Neuroscience Provider 07/08/24 08/07/24 Danna Cardenas PA-C 6405 [place] [address] Assigned Heart and Vascular Provider 07/08/24 Felicita Desai, RN Lead Personnel Quality Assurance Auditor 07/14/24 07/28/24 Arthur Salas [facility] [address] [place] [address] Assigned Behavioral Health Provider 08/08/24 Randy Maradiaga DO [address] [place] [address] Assigned Neuroscience Provider 08/08/24 documented as of this encounter
--- OUTSIDE RECORDS SUMMARY | 2024-09-20 19:22 | XMS_ITS | Encounter Summary ---
Author Organization [facility] Address [address] [place] [address] Care Team Providers Care Manager Erp Name Role Phone Winston Villatoro OD Unavailable +[phone] Denise Woodson APRN CLOSING COORDINATOR Unavailable +[phone] Denise Woodson APRN CLOSING COORDINATOR Primary Care Provider Usha Simon APRN CLOSING COORDINATOR Unavailable + [phone] Dangelo Salinas MD Unavailable Anastasia Stearns RN Unavailable +[phone] Germaine Lopez CH Unavailable +[phone] Lisa Zambrano MD Unavailable + [phone] Raul Hoyos MD Unavailable Joya Lira [facility] Unavailable +[phone] Joya Lira [facility] Unavailable +[phone] Fabi Coates MD Unavailable [phone] Robin Catalan MD Unavailable +[phone] Danna Cardenas PA-C Unavailable +[phone] Felicita Desai RN Unavailable Unavailab Arthur Rios Unavailable +[phone] Randy Maradiaga DO Unavailable + Encounter Details [...] How often do you attend sabianist or tenriism serv ices? Never 02/28/2024 Do [...] PHQ-2 Score 2 05/05/2024 [facility] - [...] on file Legal Sex Female 4:05 AM DEBONER Gender Identity Not on file Sexual Orientation [...] st Contact Info) Description 09/25/2024 11:00 AM DEBONER Office Visit [facility] [address] [place] [address] Denise Woodson APRN [facility] [address] [place] [address] 09/29/2024 9:00 AM DEBONER Virtual Visit [facility] Neurology [facility] [address] [facility] [address] 3rd [place] [address] Randy Maradiaga, [address] [place] [address] 10/09/2024 1:20 PM DEBONER Office Visit [facility] Heart [facility] 6[address] [facility] [address] [place] [address] Danna Cardenas PA-C 6405 [place] [address] 10/15/2024 11:00 AM DEBONER Office Visit [facility] [address] [place] [phone] Chintan DeniseBARRERA diaz CLOSING COORDINATOR [address] [place] [address] 10/30/2024 4:00 PM DEBONER Virtual Visit [facility] V[facility] [place] [address] [place] [phone] Lisa Zambrano MD [address] [place] [address] 12/29/2024 12:45 PM CDT Office Visit [facility] [address] [facility] [address],[place] [address] Fabi Coates MD [address] [facility] 75 [place], [place] [address] 12/29/2024 1:45 PM CDT Office Visit [facility] 2450 [facility] Explorer [facility] 12th Flr,[place] [phone] Fabi Coates MD [address] [facility] 75 [place] [address] 06/01/2025 11:15 AM CDT Appointment [facility] [address] [place] [phone] Robin Zepeda MD [address] [place] [address] 857[address] 06/04/2025 11:00 AM CDT Office Visit [facility] Neurosurgery [address] 3rd [place] [phone] Robin Zepeda MD [address] [place] [address] Usha Simon APRN [address] [address] documented as of this encounter Goals Goal Patient Goal Type Associated Problems Recent Progress Patient-Stated? Author I would like additional resources and support to manage my health and prevent future avoidable ED visits/hospital admissions Care Plan Increased risk of re-admission 40%( 4 3:02 PM DEBONER) Anastasia Talamantes, RN Note: Barriers: diagnosis of multiple, chronic, complex medical conditions, provider availability - wait time to complete appointments, etc. Strengths: motivated, engaged in care coordination Patient expressed understanding of goal: yes Action steps to achieve this goal: 1. I will follow up with my providers as scheduled/recommended - Pulmonology: TBD - Mental Health weekly - PT, OT and AIR SUPPORT OPERATIONS OPERATOR, continuing through [facility] [place]: - PCP: 09/18/2024 & 10/15/2024. - Vascular [...] clinic with 24/ after hours services available. Vmware Administrator will remain available as needed. documented as of this encounter Visit Diagnoses Not on filedocumented in this encounter Additional Health Concerns Active Problems Noted Date Diagnosed Date Increased risk of re-admission 02/18/2024 Infection Onset Date Last Indicated Resolved Time Rule Out COVID-19 09/13/2024 09/13/2024 09/13/2024 12:31 PM DEBONER Assessment Noted Time PHQ-9 Depression Total Score: 5 03/17/20 24 9:45 AM CDT documented as of this encounter Care Teams Manager Erp Relationship Specialty Start Date End Date Winston Villatoro OD [facility] [address] [facility] [address] [place] [address] PCP - Ophthalmology Ophthalmology 02/11/13 Denise Woodson APRN CLOSING COORDINATOR [address] [place] [address] PCP - General Family Practice 09/21/20 Denise Woodson APRN CLOSING COORDINATOR [address] [place] [address] Assigned PCP 07/17/20 Usha Simon APRN CLOSING COORDINATOR 909 [facility], [place] [address] Nurse Practitioner Neurological Surgery 01/24/24 Dangelo Salinas MD [address] [place] [address] Neurology 01/27/24 Anastasia Stearns, RN Lead Vmware Administrator 02/06/24 Germaine Lopez, W Community Health Worker Primary Care - CC 02/18/24 Lisa Zambrano MD [address] [facility] [address] [place] [address] Assigned Heart and Vascular Provider 05/08/24 07/07/24 Raul Hoyos MD [address] [place] [address] Assigned Neuroscience Provider 05/08/24 07/07/24 Joya Lira Jole[facility] [address] [address] Pharmacist Pharmacist 05/25/24 [address] [facility] [address] [place] [address] Assigned MTM Pharmacist 06/08/24 Fabi Coates MD [address] [place] [address] 75 [place] [address] Genetics, Clinical 06/18/24 Robin Zepeda MD [address] [place] [address] Assigned Neuroscience Provider 07/08/24 08/07/24 Danna Cardenas PA-C [address]405 [place] [address] Assigned Heart and Vascular Provider 07/08/24 Felicita Desai, RN Lead Vmware Administrator 07/14/24 07/28/24 Arthur Salas, [facility] [address] [place] [address] Assigned Behavioral Health Provider 08/08/24 Randy Maradiaga DO 909 [place] [address] Assigned Neuroscience Provider 08/08/24 documented as of this encounter
--- OUTSIDE RECORDS SUMMARY | 2024-09-20 19:22 | XMS_ITS | Encounter Summary ---
Author Organization [facility] Address [address] [place] [address] Care Team Providers Care Manager Respiratory Care Name Role Phone Winston Villatoro OD Unavailable [phone] Denise Woodson APRN AEROSPACE STRESS ENGINEER Unavailable [phone] Denise Woodson APRN AEROSPACE STRESS ENGINEER Primary Care Provider Usha Simon APRN AEROSPACE STRESS ENGINEER Unavailable + [phone] Dangelo Salinas MD Unavailable Anastasia Stearns RN Unavailable Germaine Lopez CH Unavailable +[phone] Lisa Zambrano MD Unavailable + [phone] Raul Hoyos MD Unavailable [phone] Joya Lira [facility] Unavailable [phone] Joya Lira [facility] Unavailable [phone] Fabi Coates MD Unavailable [phone] Robin Catalan MD Unavailable [phone] Danna Cardenas PA-C Unavailable +[phone] Felicita Desai RN Unavailable Unavailab Arthur Rios Unavailable +[phone] Randy Maradiaga DO Unavailable + Encounter Details Date Type Department Care Team (Late st Contact Info) Description 05/12/2024 Telephone [facility] [address] [place] [address] Denise Woodson APRN [facility] [address] [facility] [place] [address] Social History Tobacco Use Types [...] How often do you attend gnosticism or yazidi serv ices? Never 02/28/2024 Do [...] PHQ-2 Score 2 05/05/2024 [facility] Occupat ional [facility] - Occupational Stress [...] on file Legal Sex Female 4:05 AM DATA CONVERSION ANALYST Gender Identity Not on file Sexual [...] basket for review and sign. Anastasia Velasquez Scientific Research Associate [facility] * Telephone Encounter - Anastasia Abad - 05/20/2024 11:01 AM CDT Kaleb with [employer] calling to inquire if short term disability forms were received. Will Re-send the Forms. Forms were not in the provider's basket, nor was there an encounter statingthe provider received/signed the form. Anastasia Velasquez Scientific Research Associate [facility] * Telephone Encounter - Donald Newman - 05/12/2024 4:28 PM CDT Forms/Letter Request Type of form/letter: OTHER: FORMS from ([employer]) Do we have the form/letter: Yes: In the Dr's in basket at front elevator operator Who is the form from? [employer] Where did/will the form come from? form was faxed in When is form/letter needed by: FIFI How would you like the form/letter returned: Patient Notified form requests are processed in 5-7 business days:No Could we send this information to you in [facility] or would you prefer to receive a phone call?: No preference Okay to leave a detailed message?: No at Other phone number: FAX: [phone] documented in this encounter Plan of Treatment Upcoming Encounters Date Type Department Care Team (Late st Contact Info) Description 09/25/2024 11:00 AM DATA CONVERSION ANALYST Office Visit [facility] [address] [place] [phone] Denise Woodson APRN [facility] [address] [place] [address] 09/29/2024 9:00 AM DATA CONVERSION ANALYST Virtual Visit [facility] Neu[facility] [address] [facility] [address] 3rd [place] [address] Randy Maradiaga, [address] [place] [address] 10/09/2024 1:20 PM DATA CONVERSION ANALYST Office Visit [facility] Heart [facility] 6[address] [facility] [address] [place] [address] Danna Cardenas PA-C 6405 [place] [address] 10/15/2024 11:00 AM DATA CONVERSION ANALYST Office Visit [facility] [address] [place] [address] Denise Woodson APRN AEROSPACE STRESS ENGINEER [address] [place] [address] 10/30/2024 4:00 PM DATA CONVERSION ANALYST Virtual Visit [facility] V[facility] [place] [address] [place] [phone] Lisa Zambrano MD [address] [place] [address] 12/29/2024 12:45 PM CDT Office Visit [facility] [address] [facility] [address],[place] [phone] Fabi Coates MD 420 [facility] 75 [place], [place] [address] 12/29/2024 1:45 PM CDT Office Visit [facility] 2450 [facility] Explorer [facility] 12th Flr,[place] [address] Fabi Coates MD [address] [facility] 75 [place] [address] 06/01/2025 11:[address] [facility] Care Center Imaging [address] [place] [phone] Robin Zepeda MD [address] [place] [address] 06/04/2025 11:00 AM CDT Office Visit [facility] Neurosurgery [address] 3rd [place] [address] Robin Zepeda MD [address] [place] [address] Usha Simon APRN [address] [address] documented as of this encounter Goals Goal Patient Goal Type Associated Problems Recent Progress Patient-Stated? Author I would like additional resources and support to manage my health and prevent future avoidable ED visits/hospital admissions Care Plan Increased risk of re-admission 40%( 4 3:02 PM DATA CONVERSION ANALYST) Anastasia Talamantes, RN Note: Barriers: diagnosis of multiple, chronic, complex medical conditions, provider availability - wait time to complete appointments, etc. Strengths: motivated, engaged in care coordination Patient expressed understanding of goal: yes Action steps to achieve this goal: 1. I will follow up with my providers as scheduled/recommended - Pulmonology: TBD - Mental Health weekly - PT, OT and STICK FEEDER, continuing through [facility] [place]: - PCP: 09/18/2024 & 10/15/2024. - [...] with 24/ after hours services available. Plant Technician/Control Room Operator will remain available as needed. documented as of this encounter Visit Diagnoses Not on filedocumented in this encounter Additional Health Concerns Active Problems Noted Date Diagnosed Date Increased risk of re-admission 02/18/2024 Infection Onset Date Last Indicated Resolved Time Rule Out COVID-19 09/13/2024 09/13/2024 09/13/2024 12:31 PM DATA CONVERSION ANALYST Assessment Noted Time PHQ-9 Depression Total Score: 5 03/17/20 24 9:45 AM CDT documented as of this encounter Care Teams Manager Respiratory Care Relationship Specialty Start Date End Date Winston Villatoro OD [facility] 701 [facility] [address] [place] [address] PCP - Ophthalmology Ophthalmology 02/11/13 Denise Woodson APRN AEROSPACE STRESS ENGINEER [address] [place] [address] PCP - General Family Practice 09/21/20 Denise Woodson APRN AEROSPACE STRESS ENGINEER [address] [place] [address] Assigned PCP 07/17/20 Usha Simon APRN AEROSPACE STRESS ENGINEER 9 [facility]121[place], [place] [address] Nurse Practitioner Neurological Surgery 01/24/24 Dangelo Salinas MD [address] [place] [address] Neurology 01/27/24 Anastasia Stearns, RN Lead Plant Technician/Control Room Operator 02/06/24 Germaine Lopez, W Community Health Worker Primary Care - CC 02/18/24 Lisa Zambrano MD 6[address] [facility] [address] [place] [address] Assigned Heart and Vascular Provider 05/08/24 07/07/24 Raul Hoyos MD [address] [place] [address] Assigned Neuroscience Provider 05/08/24 07/07/24 Joya Lira Joleen [address] [address] Pharmacist Pharmacist 05/25/24 Joya Lira Jole[place] [address] [place] [address] Assigned MTM Pharmacist 06/08/24 Fabi Coates MD [address] [place] [address] 75 [place] [address] Genetics, Clinical 06/18/24 Robin Zeepda MD [address] [place] [address] Assigned Neuroscience Provider 07/08/24 08/07/24 Danna Cardenas PA-C 6405 [place] [address] Assigned Heart and Vascular Provider 07/08/24 Felicita Desai, GEMA Lead Plant Technician/Control Room Operator 07/14/24 07/28/24 Arthur Salas [facility] [address] [place] [address] Assigned Behavioral Health Provider 08/08/24 Randy Maradiaga DO 909 [place] [address] Assigned Neuroscience Provider 08/08/24 documented as of this encounter
--- OUTSIDE RECORDS SUMMARY | 2024-09-20 19:22 | XMS_ITS | Encounter Summary ---
Author Organization [place] Address [address] [place] [address] Care Team Providers Care Pneumatic Jack Operator Name Role Phone Wisnton Villatoro OD Unavailable [phone] Denise Woodson APRN EDUCATIONAL CONSULTANT Unavailable +[phone] Denise Woodson APRN EDUCATIONAL CONSULTANT Primary Care Provider Usha Simon APRN EDUCATIONAL CONSULTANT Unavailable + [phone] Dangelo Salinas MD Unavailable Anastasia Stearns RN Unavailable +[phone] Germaine Lopez CH Unavailable [phone] Lisa Zambrano MD Unavailable + [phone] Raul Hoyos MD Unavailable Joya Lira [facility] Unavailable [phone] Joya Lira [facility] Unavailable +[phone] Fabi Coates MD Unavailable [phone] Robin Catalan MD Unavailable [phone] Danna Cardenas PA-C Unavailable +[phone] Felicita Desai RN Unavailable Unavailab Arthur Rios Unavailable [phone] Randy Maradiaga DO Unavailable + Reason for Visit * Reason Onset Date Comments Symptoms 05/12/2024 Stroke symptoms per pt Encounter Details Date Type Department Care Team (Late st Contact Info) Description 05/12/2024 Telephone [facility] Neurology Clinic [address] 3rd [place] [address] Raul Hoyos MD [address] [place] [address] [id number] [address] Symptoms (Stroke symptoms per pt ) Social [...] How often do you attend druze or mu-ism serv ices? 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 Call Center Phone Message May [...] st Contact Info) Description 09/25/2024 11:00 AM DESIGN TECHNOLOGY PROFESSOR Office Visit [facility] [address] [place] [address] Denise Woodson APRN [facility] [address] [place], [place] [address] 09/29/2024 9:00 AM DESIGN TECHNOLOGY PROFESSOR Virtual Visit [facility] Neurology Clinic [address] 3rd [place] [phone] Randy Maradiaga, [address] [place] [address] 10/09/2024 1:20 PM DESIGN TECHNOLOGY PROFESSOR Office Visit [facility] Heart [facility] 6[address] [facility] [address] [place] [phone] Danna Cardenas PA-C 6405 [place] [address] 10/15/2024 11:00 AM DESIGN TECHNOLOGY PROFESSOR Office Visit [facility] [address] [place] [phone] Denise Woodson APRN CNP [address] COUNT INCLUDES [facility] [place], [place] [address] 10/30/2024 4:00 PM DESIGN TECHNOLOGY PROFESSOR Virtual Visit [facility] Vascular Clinic [place] [address] [place] [phone] Lisa Zambrano MD [address] [place] [address] 12/29/2024 12:45 PM CDT Office Visit [facility] Pediatric Specialty Clinic [address] [place] [phone] Fabi Coates MD [address] [place] [address] 12/29/2024 1:45 PM CDT Office Visit [facility]ty Clinic [address] [place] [phone] Fabi Coates MD [address] [place] [address] 06/01/2025 11:15 AM CDT Appointment [facility] [address] [place] [address] Robin Zepeda MD 909 [facility]121[place] [address] 06/04/2025 11:00 AM CDT Office Visit [facility] Neurosurgery Clinic [address] 3rd [place] [address] Robin Zepeda MD [address] [place], [place] [address], [place] [address] Usha Simon APRN EDUCATIONAL CONSULTANT [address] [place] [address] 8[address]35 documented as of this encounter Goals Goal Patient Goal Type Associated Problems Recent Progress Patient-Stated? Author I would like additional resources and support to manage my health and prevent future avoidable ED visits/hospital admissions Care Plan Increased risk of re-admission 40%( 4 3:02 PM DESIGN TECHNOLOGY PROFESSOR) Anastasia Talamantes, RN Note: Barriers: diagnosis of multiple, chronic, complex medical conditions, provider availability - wait time to complete appointments, etc. Strengths: motivated, engaged in care coordination Patient expressed understanding of goal: yes Action steps to achieve this goal: 1. I will follow up with my providers as scheduled/recommended - Pulmonology: TBD - Mental Health weekly - PT, OT and FILTER PULP WASHER, continuing through [facility] [place]: - PCP: 09/18/2024 & 10/15/2024. - Vascular [...] clinic with 24/7 after hours services available. Bottom Brusher will remain available as needed. documented as of this encounter Visit Diagnoses Not on filedocumented in this encounter Additional Health Concerns Active Problems Noted Date Diagnosed Date Increased risk of re-admission 02/18/2024 Infection Onset Date Last Indicated Resolved Time Rule Out COVID-19 09/13/2024 09/13/2024 09/13/2024 12:31 PM DESIGN TECHNOLOGY PROFESSOR Assessment Noted Time PHQ-9 Depression Total Score: 5 03/17/20 24 9:45 AM CDT documented as of this encounter Care Teams Pneumatic Jack Operator Relationship Specialty Start Date End Date [facility] [place] [address] [place] [address] PCP - Ophthalmology Ophthalmology 02/11/13 Denise Woodson APRN EDUCATIONAL CONSULTANT [address] [address] PCP - General Family Practice 09/21/20 Denise Woodson APRN EDUCATIONAL CONSULTANT [address] [place] [address] Assigned PCP 07/17/20 Usha Simon APRN EDUCATIONAL CONSULTANT 909 [facility]121[place], [place] [address] Nurse Practitioner Neurological Surgery 01/24/24 Dangelo Salinas MD [address] [facility] [address] [place] [address] Neurology 01/27/24 Anastasia Stearns, RN Lead Bottom Brusher 02/06/24 Germaine Lopez, W Community Health Worker Primary Care - CC 02/18/24 Lisa Zambrano MD [address] [place] [address] Assigned Heart and Vascular Provider 05/08/24 07/07/24 Raul Hoyos MD 909 [facility]121[place] [address] Assigned Neuroscience Provider 05/08/24 07/07/24 Joya Lira [facility] [address] [place] [address] Pharmacist Pharmacist 05/25/24 Joya Lira Joleen [address] [place] [address] Assigned MTM Pharmacist 06/08/24 Fabi Coates MD [address] [place] [address] 75 [place] [address] Genetics, Clinical 06/18/24 Robin Zepeda MD 909 [facility] [address] Assigned Neuroscience Provider 07/08/24 08/07/24 Danna Cardenas PA-C 6405 [place] [address] Assigned Heart and Vascular Provider 07/08/24 Felicita Desai, RN Lead Bottom Brusher 07/14/24 07/28/24 Arthur Salas [facility] [address] [place] [address] Assigned Behavioral Health Provider 08/08/24 Randy Maradiaga DO 909 [place] [address] Assigned Neuroscience Provider 08/08/24 documented as of this encounter
--- OUTSIDE RECORDS SUMMARY | 2024-09-20 19:22 | XMS_ITS | Encounter Summary ---
Author Organization [facility] Address [address] [place] [address] Care Team Providers Care Olap Developer Name Role Phone Winston Villatoro OD Unavailable +[phone] Denise Woodson APRN GLOBAL COMPENSATION MANAGER Unavailable +[phone] Denise Woodson APRN GLOBAL COMPENSATION MANAGER Primary Care Provider Usha Smion APRN GLOBAL COMPENSATION MANAGER Unavailable + [phone] Dangelo Salinas MD Unavailable Anastasia Stearns RN Unavailable +[phone] Germaine Lopez CH Unavailable +[phone] Lisa Zambrano MD Unavailable + [phone] Raul Hoyos MD Unavailable Joya Lira [facility] Unavailable +[phone] Joya Lira [facility] Unavailable +[phone] Fabi Coates MD Unavailable [phone] Robin Catalan MD Unavailable +[phone] Danna Cardenas PA-C Unavailable +[phone] Felicita Desai RN Unavailable Unavailab Arthur Rios Unavailable +[phone] Randy Maradiaga DO Unavailable + Encounter Details Date Type Department Care Team (Late st Contact Info) Description 05/25/2024 MyC Medical Advice [facility] Neurology Clinic [address] 3rd [place] [address] Raul Hoyos MD [address] [place] [address] [id number] [place] [address] Social History Tobacco Use Types Packs/Day Years [...] How often do you attend taoism or restorationism serv ices? 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 file Not on file Not on file Not on file Not on file Not on file documented as of this encounter Plan of Treatment Upcoming Encounters Date Type Department Care Team (Late st Contact Info) Description 09/25/2024 11:00 AM TROUBLE CLERK Office Visit [facility] [address] [place] [phone] Denise Woodson, BARRERA GLOBAL COMPENSATION MANAGER [address] [place], [place] [id number] 09/29/2024 9:00 AM TROUBLE CLERK Virtual Visit [facility] Neurology [address] 3rd [place] [phone] Randy Maradiaga, [address] 440525 10/09/2024 1:20 PM TROUBLE CLERK Office Visit [facility] Heart [facility] 6405 [facility] [address] [place] [phone] Danna Cardenas PA-C 6405 [place], [place] 353905 10/15/2024 11:00 AM TROUBLE CLERK Office Visit [facility] [address] [place] [phone] Denise Woodson APRN GLOBAL COMPENSATION MANAGER [address] [place], [place] 1548868 10/30/2024 4:00 PM TROUBLE CLERK Virtual Visit [facility] Vascular [facility] [address] [place] [phone] Lisa Zambrano MD [address] [place] [address] 12/29/2024 12:45 PM CDT Office Visit [facility] [address] [place] [phone] Fabi Coates MD [address] [place] [address] 12/29/2024 1:45 PM CDT Office Visit [facility] Pediatric [facility]ty Clinic [address] [place] [phone] Fabi Coates MD [address] [place] [address] 06/01/2025 11:15 AM CDT Appointment [facility] Imaging [address] [place] [address] Robin Zepeda MD [address] [place] [address] 06/04/2025 11:00 AM CDT Office Visit [facility] Neurosurgery [address] [phone] Robin Zepeda MD [address] [place] [address]76855 Usha Simon APRN [address] [address] documented as of this encounter Goals Goal Patient Goal Type Associated Problems Recent Progress Patient-Stated? Author I would like additional resources and support to manage my health and prevent future avoidable ED visits/hospital admissions Care Plan Increased risk of re-admission 40%( 4 3:02 PM TROUBLE CLERK) Anastasia Talamantes, RN Note: Barriers: diagnosis of multiple, chronic, complex medical conditions, provider availability - wait time to complete appointments, etc. Strengths: motivated, engaged in care coordination Patient expressed understanding of goal: yes Action steps to achieve this goal: 1. I will follow up with my providers as scheduled/recommended - Pulmonology: TBD - Mental Health weekly - PT, OT and SHAKE CUTTER, continuing through [facility] [place]: - PCP: 09/18/2024 & 10/15/2024. - Vascular [...] clinic with 24/ after hours services available. Bridge Painter Helper will remain available as needed. documented as of this encounter Visit Diagnoses Not on filedocumented in this encounter Additional Health Concerns Active Problems Noted Date Diagnosed Date Increased risk of re-admission 02/18/2024 Infection Onset Date Last Indicated Resolved Time Rule Out COVID-19 09/13/2024 09/13/2024 09/13/2024 12:31 PM TROUBLE CLERK Assessment Noted Time PHQ-9 Depression Total Score: 5 03/17/20 24 9:45 AM CDT documented as of this encounter Care Teams Olap Developer Relationship Specialty Start Date End Date Winston Villatoro, AMELIE [facility] [place] [address] [place] [address] PCP - Ophthalmology Ophthalmology 02/11/13 Denise Woodson APRN GLOBAL COMPENSATION MANAGER [address] [place] [address] PCP - General Family Practice 09/21/20 Denise Woodson APRN GLOBAL COMPENSATION MANAGER [address] [place] [address] Assigned PCP 07/17/20 Usha Simon APRN GLOBAL COMPENSATION MANAGER [address] [address] Nurse Practitioner Neurological Surgery 01/24/24 Dangelo Salinas MD [address] [place] [address] Neurology 01/27/24 Anastasia Stearns, RN Lead Bridge Painter Helper 02/06/24 Germaine Lopez, W Community Health Worker Primary Care - CC 02/18/24 Lisa Zambrano MD 6405 [facility] [address] [place] [address] Assigned Heart and Vascular Provider 05/08/24 07/07/24 Raul Hoyos MD [address] [address] Assigned Neuroscience Provider 05/08/24 07/07/24 Joya Lira RPH [address] [address] Pharmacist Pharmacist 05/25/24 Joya Lira RPH [address] [place] [address] Assigned MTM Pharmacist 06/08/24 Fabi Coates MD [address] [place] [address] [facility] [address] [place] [address] Genetics, Clinical 06/18/24 Robin Zepeda MD 909 [facility] [id number] [place] [address] Assigned Neuroscience Provider 07/08/24 08/07/24 Danna Cardenas PA-C 6405 [place] [address] Assigned Heart and Vascular Provider 07/08/24 Felicita Desai, RN Lead Bridge Painter Helper 07/14/24 07/28/24 Arthur Salas [facility] [address] [place] [address] Assigned Behavioral Health Provider 08/08/24 Randy Maradiaga DO [address] [place] [address] Assigned Neuroscience Provider 08/08/24 documented as of this encounter
--- OUTSIDE RECORDS SUMMARY | 2024-09-20 19:22 | XMS_ITS | Encounter Summary ---
Author Organization [facility] Address [address] [place] [address] Care Team Providers Care Edge Runner Name Role Phone Winston Villatoro OD Unavailable [phone] Denise Woodson APRN CEMENT FITTINGS MAKER Unavailable [phone] Denise Woodson APRN CEMENT FITTINGS MAKER Primary Care Provider Usha Simon APRN CEMENT FITTINGS MAKER Unavailable + [phone] Dangelo Salinas MD Unavailable Anastasia Stearns RN Unavailable [phone] Germaine Lopez CH Unavailable [phone] Lisa Zambrano MD Unavailable + [phone] Raul Hoyos MD Unavailable Joya Lira [facility] Unavailable [phone] Joya Lira [facility] Unavailable +[phone] Fabi Coates MD Unavailable [phone] Robin Catalan MD Unavailable [phone] Danna Cardenas PA-C Unavailable +[phone] Felicita Desai RN Unavailable Unavailab Arthur Rios Unavailable +[phone] Randy Maradiaga DO Unavailable + Encounter Details Date Type Department Care Team (Late st Contact Info) Description 05/15/2024 MyC Medical Advice [facility] Neurology Clinic [address] 3rd [place] [address] Stacey Kelley RN Social History [...] How often do you attend congregation or baptism serv ices? Never 02/28/2024 Do [...] PHQ-2 Score 2 05/05/2024 [facility] [place] of Occupat ional Health - Occupational Stress [...] on file Legal Sex Female 4:05 AM METROLOGY MANAGER Gender Identity Not on file Sexual [...] st Contact Info) Description 09/25/2024 11:00 AM METROLOGY MANAGER Office Visit [facility] [address] [place] [phone] Denise Woodson APRN CEMENT FITTINGS MAKER [address] [place], [place] [phone] 09/29/2024 9:00 AM METROLOGY MANAGER Virtual Visit [facility] Neurology [address] 3rd [place] [phone] Randy Maradiaga, [address] [address] 10/09/2024 1:20 PM METROLOGY MANAGER Office Visit [facility] Heart [facility] 6405 [facility] [address] [place] [phone] Danna Cardenas PA-C [address] [place] [address] 10/15/2024 11:00 AM METROLOGY MANAGER Office Visit [facility] [address] [place] [phone] Denise Woodson APRN CEMENT FITTINGS MAKER [address] [place], [place] 08[address] 10/30/2024 4:00 PM METROLOGY MANAGER Virtual Visit [facility] Vascular Clinic [place] [address] [place] [phone] Lisa Zambrano MD [address] [place] [address] 12/29/2024 12:45 PM CDT Office Visit [facility] [address] [facility] [address],[place] [phone] Fabi Coates MD [address] [place] [address] [address] 12/29/2024 1:45 PM CDT Office Visit [facility] 2450 [facility] Explorer [facility] 12th Fl[address],[place] [phone] Fabi Coates MD [address] [address] 06/01/2025 11:15 AM CDT Appointment [facility] Center Imaging [address] [place] [phone] Robin Zepeda MD [address] [place] [address] 06/04/2025 11:00 AM CDT Office Visit [facility] Neurosurgery Clinic [address] 3rd [place] [phone] Robin Zepeda MD [address] [place] [address] Usha Simon APRN CEMENT FITTINGS MAKER [address] [place] [address] documented as of this encounter Goals Goal Patient Goal Type Associated Problems Recent Progress Patient-Stated? Author I would like additional resources and support to manage my health and prevent future avoidable ED visits/hospital admissions Care Plan Increased risk of re-admission 40%( 4 3:02 PM METROLOGY MANAGER) Anastasia Talamantes, RN Note: Barriers: diagnosis of multiple, chronic, complex medical conditions, provider availability - wait time to complete appointments, etc. Strengths: motivated, engaged in care coordination Patient expressed understanding of goal: yes Action steps to achieve this goal: 1. I will follow up with my providers as scheduled/recommended - Pulmonology: TBD - Mental Health weekly - PT, OT and PRE SALES SYSTEMS ENGINEER, continuing through [facility] [place]: - PCP: 09/18/2024 & 10/15/2024. - [...] clinic with 24/ after hours services available. Mural Painter will remain available as needed. documented as of this encounter Visit Diagnoses Not on filedocumented in this encounter Additional Health Concerns Active Problems Noted Date Diagnosed Date Increased risk of re-admission 02/18/2024 Infection Onset Date Last Indicated Resolved Time Rule Out COVID-19 09/13/2024 09/13/2024 09/13/2024 12:31 PM METROLOGY MANAGER Assessment Noted Time PHQ-9 Depression Total Score: 5 03/17/20 24 9:45 AM CDT documented as of this encounter Care Teams Edge Runner Relationship Specialty Start Date End Date Winston Villatoro OD [facility] 701 [facility] [address] [place] [address] PCP - Ophthalmology Ophthalmology 02/11/13 Denise Woodson APRN CEMENT FITTINGS MAKER [address] [address] [address] PCP - General Family Practice 09/21/20 Denise Woodson APRN CEMENT FITTINGS MAKER [address] [place] [address] Assigned PCP 07/17/20 Usha Simon APRN CEMENT FITTINGS MAKER [address] [place] [address] Nurse Practitioner Neurological Surgery 01/24/24 Dangelo Salinas MD [address] [place] [address] Neurology 01/27/24 Anastasia Stearns, RN Lead Mural Painter 02/06/24 Germaine Lopez, W Community Health Worker Primary Care - CC 02/18/24 Lisa Zambrano MD [address] [facility] [address] [place] [address] Assigned Heart and Vascular Provider 05/08/24 07/07/24 Raul Hoyos MD [address] [address] Assigned Neuroscience Provider 05/08/24 07/07/24 Joya Lira RPH [address] [place] [address] Pharmacist Pharmacist 05/25/24 Joya Lira RPH [address] [place] [address] Assigned MTM Pharmacist 06/08/24 Fabi Coates MD [address] [place] [address] [facility] 75 [place] [address] Genetics, Clinical 06/18/24 Robin Zepeda MD 909 [facility] [id number] [place] [address] Assigned Neuroscience Provider 07/08/24 08/07/24 Danna Cardenas PA-C 6405 [place] [address] Assigned Heart and Vascular Provider 07/08/24 Felicita Desai, GEMA Lead Mural Painter 07/14/24 07/28/24 Arthur Salas [facility] [address] [place] [address] Assigned Behavioral Health Provider 08/08/24 Randy Maradiaga DO [address] [place] [address] Assigned Neuroscience Provider 08/08/24 documented as of this encounter
--- OUTSIDE RECORDS SUMMARY | 2024-09-20 19:22 | XMS_ITS | Encounter Summary ---
Author Organization [facility] Address [address] [place] [address] Care Team Providers Care Inspector Poising Name Role Phone Winston Villatoro OD Unavailable +[phone] Denise Woodson APRN STORE HAND Unavailable [phone] Denise Woodson APRN STORE HAND Primary Care Provider Usha Simon APRN STORE HAND Unavailable + [phone] Dangelo Salinas MD Unavailable Anastasia Stearns RN Unavailable Germaine Lopez CH Unavailable [phone] Lisa Zambrano MD Unavailable + [phone] Raul Hoyos MD Unavailable [phone] Joya Lira [facility] Unavailable [phone] Joya Lira [facility] Unavailable +[phone] Fabi Coates MD Unavailable [phone] Robin Catalan MD Unavailable [phone] Danna Cardenas PA-C Unavailable +[phone] Felicita Desai RN Unavailable Unavailab Arthur Rios Unavailable +[phone] Randy Maradiaga DO Unavailable + Encounter Details Date Type Department Care Team (Late st Contact Info) Description 05/24/2024 MyC Medical Advice [facility] [address], [address] [place] [address] Rohit Barcenas MD 420 [facility] [address] [place] [address] Social History Tobacco Use Types [...] How often do you attend buddhism or mandaeism serv ices? Never 02/28/2024 Do [...] Answer Date Recorded PHQ-2 Score 2 05/05/2024 [facility] [place] of Occupat ional Health - Occupational Stress [...] on file Legal Sex Female 4:05 AM EARRING MAKER Gender Identity Not on file Sexual [...] st Contact Info) Description 09/25/2024 11:00 AM EARRING MAKER Office Visit [facility] [address] [place] [phone] Denise Woodson, BARRERA STORE HAND [address] [facility] [place] [place] [phone] 09/29/2024 9:00 AM EARRING MAKER Virtual Visit [facility] Neurology [address] 3rd [place] [phone] Randy Maradiaga, [address] [address] 10/09/2024 1:20 PM EARRING MAKER Office Visit [facility] Heart [facility] 6405 [facility] [address] [place] [phone] Danna Cardenas PA-C 6405 [place] [address] 10/15/2024 11:00 AM EARRING MAKER Office Visit [facility] [address] [place] [phone] Denise Woodson, BARRREA STORE HAND [address] [place] [address] 10/30/2024 4:00 PM EARRING MAKER Virtual Visit [facility] Vascular [facility] [address] [place] [phone] Lisa Zambrano MD [address] [place] [address] 12/29/2024 12:45 PM CDT Office Visit [facility] Explorer [address] [phone] Fabi Coates MD [address] [address] 12/29/2024 1:45 PM CDT Office Visit [facility] 2450 [facility] [address] [phone] Fabi Coates MD [address] [address] 06/01/2025 11:15 AM CDT Appointment [facility] Imaging [address] [place] [phone] Robin Zepeda MD [address] [place] [address] 06/04/2025 11:00 AM CDT Office Visit [facility] Neurosurgery [address] [place] [phone] Robin Zepeda MD [address] [place] [address] Usha Simon APRN [address] [address] documented as of this encounter Goals Goal Patient Goal Type Associated Problems Recent Progress Patient-Stated? Author I would like additional resources and support to manage my health and prevent future avoidable ED visits/hospital admissions Care Plan Increased risk of re-admission 40%( 4 3:02 PM EARRING MAKER) Anastasia Talamantes, RN Note: Barriers: diagnosis of multiple, chronic, complex medical conditions, provider availability - wait time to complete appointments, etc. Strengths: motivated, engaged in care coordination Patient expressed understanding of goal: yes Action steps to achieve this goal: 1. I will follow up with my providers as scheduled/recommended - Pulmonology: TBD - Mental Health weekly - PT, OT and SENIOR SAFETY SUPPORT MANAGER, continuing through [facility] [place]: - PCP: 09/18/2024 & 10/15/2024. - Vascular [...] clinic with 24/ after hours services available. Carbonation Equipment Tender will remain available as needed. documented as of this encounter Visit Diagnoses Not on filedocumented in this encounter Additional Health Concerns Active Problems Noted Date Diagnosed Date Increased risk of re-admission 02/18/2024 Infection Onset Date Last Indicated Resolved Time Rule Out COVID-19 09/13/2024 09/13/2024 09/13/2024 12:31 PM EARRING MAKER Assessment Noted Time PHQ-9 Depression Total Score: 5 03/17/20 24 9:45 AM CDT documented as of this encounter Care Teams Inspector Poising Relationship Specialty Start Date End Date Winston Villatoro OD [facility] [place] [address] [place] [address] PCP - Ophthalmology Ophthalmology 02/11/13 Denise Woodson APRN STORE HAND [address] [address] PCP - General Family Practice 09/21/20 Denise Woodson APRN STORE HAND [address] [place] [address] Assigned PCP 07/17/20 Usha Simon APRN CNP [address] [address] Nurse Practitioner Neurological Surgery 01/24/24 Dangelo Salinas MD [address] [place] [address] Neurology 01/27/24 Anastasia Stearns, RN Lead Carbonation Equipment Tender 02/06/24 Germaine Lopez, W Community Health Worker Primary Care - CC 02/18/24 Lisa Zambrano MD 6405 [facility] [address] [place] [address] Assigned Heart and Vascular Provider 05/08/24 07/07/24 Raul Hoyos MD [address] [address] Assigned Neuroscience Provider 05/08/24 07/07/24 Joya Lira RPH [address] [place] [address] Pharmacist Pharmacist 05/25/24 Joya Lira RPH [address] [place] [address] Assigned MTM Pharmacist 06/08/24 Fabi Coates MD [address] [place] [address] 75 [place] [address] Genetics, Clinical 06/18/24 Robin Zepeda MD 909 [facility] LI6907NE [place] [address] Assigned Neuroscience Provider 07/08/24 08/07/24 Danna Cardenas PA-C 6405 [place] [address] Assigned Heart and Vascular Provider 07/08/24 Felicita Desai, RN Lead Carbonation Equipment Tender 07/14/24 07/28/24 Arthur Salas [facility] [address] [place] [address] Assigned Behavioral Health Provider 08/08/24 Randy Maradiaga DO 9 [place] [address] Assigned Neuroscience Provider 08/08/24 documented as of this encounter
--- OUTSIDE RECORDS SUMMARY | 2024-09-20 19:22 | XMS_ITS | Encounter Summary ---
Author Organization [place] Address [address] [place] [address] Care Team Providers Care Software Consultant Name Role Phone Winston Villatoro OD Unavailable [phone] Denise Woodson APRN SHIPS EQUIPMENT ENGINEER Unavailable +[phone] Denise Woodson APRN SHIPS EQUIPMENT ENGINEER Primary Care Provider Usha Simon APRN SHIPS EQUIPMENT ENGINEER Unavailable + [phone] Dangelo Salians MD Unavailable Anastasia Stearns RN Unavailable [phone] Germaine Lopez CHW Unavailable +[phone] Robin Zepeda MD Unavailable Lisa Zambrano MD Unavailable Raul Hoyos MD Unavailable Joya Lira RP Unavailable [phone] Joya Lira RPH Unavailable Fabi Coates MD Unavailable [phone] Robin Zepeda MD Unavailable [phone] Danna CardenasC Unavailable [phone] Felicita Desai RN Unavailable Unavailab Arthur Rios Unavailable +[phone] Randy Maradiaga DO Unavailable + Encounter Details [...] How often do you attend yarsanism or islam serv ices? Never 02/28/2024 Do [...] Answer Date Recorded PHQ-2 Score 0 03/17/2024 [facility] of Occupat ional Health - Occupational Stress [...] on file Legal Sex Female 4:05 AM SHOTGUN SHELL ASSEMBLY MACHINE OPERATOR Gender Identity Not on file [...] st Contact Info) Description 09/25/2024 11:00 AM SHOTGUN SHELL ASSEMBLY MACHINE OPERATOR Office Visit [facility] [address] [place] [phone] Denise Woodson, PUMP INSTALLATION AND SERVICER SHIPS EQUIPMENT ENGINEER [address] [facility] [place], [place] [address] 09/29/2024 9:00 AM SHOTGUN SHELL ASSEMBLY MACHINE OPERATOR Virtual Visit [facility] Neurology [facility] 909 [facility] 3rd [place] [phone] Randy Maradiaga, [address] [address] 10/09/2024 1:20 PM SHOTGUN SHELL ASSEMBLY MACHINE OPERATOR Office Visit [facility] Heart [facility] 6405 [facility] [address] [place] [phone] Danna Cardenas PA-C 6405 [place], [place] [address] 10/15/2024 11:00 AM SHOTGUN SHELL ASSEMBLY MACHINE OPERATOR Office Visit [facility] [address] [place] [phone] Denise Woodson, BARRERA SHIPS EQUIPMENT ENGINEER [address] [place] [address] 10/30/2024 4:00 PM SHOTGUN SHELL ASSEMBLY MACHINE OPERATOR Virtual Visit [facility] Vascular [facility] [address] [place] [phone] Lisa Zambrano MD [address] [place] [address] 12/29/2024 12:45 PM CDT Office Visit [facility] [address] [facility] [address] Fl[address],[place] [phone] Fabi Coates MD 420 [facility] 75 [place], [place] [address] 12/29/2024 1:45 PM CDT Office Visit [facility]ty Clinic 2450 [facility] 12th Flr,[place] [phone] Fabi Coates MD [address] [facility] [address] [place] [address] 06/01/2025 11:15 AM CDT Appointment [facility] [address] [place] [phone] Robin Zepeda MD [address] [place] [address] 06/04/2025 11:00 AM CDT Office Visit [facility] Neurosurgery Clinic [address] 3rd [place] [phone] Robin Zepeda MD [address] [place] [address] 6835[address] Usha Simon APRN [address] [address] documented as of this encounter Goals Goal Patient Goal Type Associated Problems Recent Progress Patient-Stated? Author I would like additional resources and support to manage my health and prevent future avoidable ED visits/hospital admissions Care Plan Increased risk of re-admission 40%( 4 3:02 PM SHOTGUN SHELL ASSEMBLY MACHINE OPERATOR) Anastasia Talamantes, RN Note: Barriers: diagnosis of multiple, chronic, complex medical conditions, provider availability - wait time to complete appointments, etc. Strengths: motivated, engaged in care coordination Patient expressed understanding of goal: yes Action steps to achieve this goal: 1. I will follow up with my providers as scheduled/recommended - Pulmonology: TBD - Mental Health weekly - PT, OT and ADJUNCT FACULTY INSTRUCTOR, continuing through [facility]: - PCP: 09/18/2024 & 10/15/2024. - Vascular [...] clinic with 24/7 after hours services available. Skate Maker will remain available as needed. documented as of this encounter Visit Diagnoses Not on filedocumented in this encounter Additional Health Concerns Active Problems Noted Date Diagnosed Date Increased risk of re-admission 02/18/2024 Infection Onset Date Last Indicated Resolved Time Rule Out COVID-19 09/13/2024 09/13/2024 09/13/2024 12:31 PM SHOTGUN SHELL ASSEMBLY MACHINE OPERATOR Assessment Noted Time PHQ-9 Depression Total Score: 5 03/17/20 24 9:45 AM CDT documented as of this encounter Care Teams Software Consultant Relationship Specialty Start Date End Date Winston Villatoro OD [facility] [address] [place] [address] PCP - Ophthalmology Ophthalmology 02/11/13 Denise Woodson APRN SHIPS EQUIPMENT ENGINEER [address] [address] [address] PCP - General Family Practice 09/21/20 Denise Woodson APRN SHIPS EQUIPMENT ENGINEER [address] [address] [place] [address] Assigned PCP 07/17/20 Usha Simon APRN SHIPS EQUIPMENT ENGINEER [address] [address] Nurse Practitioner Neurological Surgery 01/24/24 Dangelo Salinas MD [address] [place] [address] Neurology 01/27/24 Anastasia Stearns, RN Lead Skate Maker 02/06/24 Germaine Lopez, W Community Health Worker Primary Care - CC 02/18/24 Robin Zepeda MD [address] [address] Assigned Neuroscience Provider 03/08/24 05/07/24 Lisa Zambrano MD [address] [place] 6[address]25 Assigned Heart and Vascular Provider 05/08/24 07/07/24 Raul Hoyos MD [address] [address] Assigned Neuroscience Provider 05/08/24 07/07/24 Joya Lira RPH [address] [address] Pharmacist Pharmacist 05/25/24 Joya Lira RPH [address] [place] [address] Assigned MTM Pharmacist 06/08/24 Fabi Coates MD 420 [facility] 75 [place] [address] Genetics, Clinical 06/18/24 Robin Zepeda MD 9 [facility] [place] [id number] [address] Assigned Neuroscience Provider 07/08/24 08/07/24 Danna Cardenas PA-C 6405 [place] [address] Assigned Heart and Vascular Provider 07/08/24 Felicita Desai, RN Lead Skate Maker 07/14/24 07/28/[address] [facility] [address] [place] [address] Assigned Behavioral Health Provider 08/08/24 Randy Maradiaga DO [address] [place] [address] Assigned Neuroscience Provider 08/08/24 documented as of this encounter
--- OUTSIDE RECORDS SUMMARY | 2024-09-20 19:22 | XMS_ITS | Encounter Summary ---
Author Organization [place] Address [address] [place] [address] Care Team Providers Care Inspector Hairspring Truing Name Role Phone Winston Villatoro OD Unavailable [phone] Denise Woodson APRN SECRET CODE EXPERT Unavailable [phone] Denise Woodson APRN SECRET CODE EXPERT Primary Care Provider Usha Simon APRN SECRET CODE EXPERT Unavailable + [phone] Dangelo Salinas MD Unavailable Anastasia Stearns RN Unavailable Germaine Lopez CH Unavailable [phone] Lisa Zambrano MD Unavailable + [phone] Raul Hoyos MD Unavailable Joya Lira [facility] Unavailable [phone] Joya Lira [facility] Unavailable [phone] Fabi Coates MD Unavailable [phone] Robin Catalan MD Unavailable [phone] Danna Cardenas PA-C Unavailable [phone] Felicita Desai RN Unavailable Unavailab Arthur Rios Unavailable +[phone] Randy Maradiaga DO Unavailable + Encounter Details Date Type Department Care Team (Late st Contact Info) Description 05/11/2024 MyC Medical Advice [facility] [address] [place] [address] Denise Woodson APRN SECRET CODE EXPERT [address] [place] [address] Social History Tobacco Use Types [...] How often do you attend confucianism or jew serv ices? 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 Qing Copeland Lead Project Development Manager [facility] documented in this encounter Plan of Treatment Upcoming Encounters Date Type Department Care Team (Late st Contact Info) Description 09/25/2024 11:00 AM DIRECTOR OF CONSUMER AFFAIRS Office Visit [facility] [address] [place] [phone] Denise Woodson, BARRERA SECRET CODE EXPERT [address] [place], [place] [phone] 09/29/2024 9:00 AM DIRECTOR OF CONSUMER AFFAIRS Virtual Visit [facility] Neurology Clinic [address] 3rd [place] [phone] Randy Maradiaga, [address] [address] 10/09/2024 1:20 PM DIRECTOR OF CONSUMER AFFAIRS Office Visit [facility] 6[address] [facility] [address] [place] [phone] Danna Cardenas PA-C [address] [place] [address] 10/15/2024 11:00 AM DIRECTOR OF CONSUMER AFFAIRS Office Visit [facility] [address] [place] [address] Denise Woodson BAKERY DECORATOR [facility] [address] [facility] [place], [place] [address] 10/30/2024 4:00 PM DIRECTOR OF CONSUMER AFFAIRS Virtual Visit [facility] V[facility] [address] [place] [address] Lisa Zambrano MD [address] [place] [address] 12/29/2024 12:45 PM CDT Office Visit [facility] [address] [place] [phone] Fabi Coates MD [address] [place] [address] 12/29/2024 1:45 PM CDT Office Visit [facility] Pediatric Specialty Clinic [address] [place] [phone] Fabi Coates MD [address] [place] [address] 06/01/2025 11:15 AM CDT Appointment [facility] Specialty [facility] [address] [place] [address] Robin Zepeda MD [address] [place] [address] [address] 06/04/2025 11:00 AM CDT Office Visit [facility] Neurosurgery Clinic [address] 3rd [place] [address] Robin Zepeda MD [address] [place] [address] 503745 Usha Simon APRN SECRET CODE EXPERT [address] 8[address] documented as of this encounter Goals Goal [...] Mental Health weekly - PT, OT and DIDACTIC INSTRUCTOR, continuing through [facility]: - PCP: 09/18/2024 & 10/15/2024. - Vascular [...] with 24/7 after hours services available. Machine Package Sealer will remain available as needed. documented as of this encounter Visit Diagnoses Not on filedocumented in this encounter Additional Health Concerns Active Problems Noted Date Diagnosed Date Increased risk of re-admission 02/18/2024 Infection Onset Date Last Indicated Resolved Time Rule Out COVID-19 09/13/2024 09/13/2024 09/13/2024 12:31 PM DIRECTOR OF CONSUMER AFFAIRS Assessment Noted Time PHQ-9 Depression Total Score: 5 03/17/20 24 9:45 AM CDT documented as of this encounter Care Teams Inspector Hairspring Truing Relationship Specialty Start Date End Date Winston Villatoro OD [facility] [place] [address] [place] [address] PCP - Ophthalmology Ophthalmology 02/11/13 Denise Woodson APRN SECRET CODE EXPERT [address] [place] [address] PCP - General Family Practice 09/21/20 Denise Woodson APRN SECRET CODE EXPERT [address] [place] [address] Assigned PCP 07/17/20 Usha Simon APRN SECRET CODE EXPERT 9 [facility], [place] [address] Nurse Practitioner Neurological Surgery 01/24/24 Dangelo Salinas MD [address] [place], [place] [address] Neurology 01/27/24 Anastasia Stearns, RN Lead Machine Package Sealer 02/06/24 Germaine Lopez, W Community Health Worker Primary Care - CC 02/18/24 Lisa Zambrano MD [address] [place] [address] Assigned Heart and Vascular Provider 05/08/24 07/07/24 Raul Hoyos MD 9 [facility]2121[place] [address] Assigned Neuroscience Provider 05/08/24 07/07/24 Joya Lira [facility] [address] [place] [address] Pharmacist Pharmacist 05/25/24 Joya Lira [facility] [address] [place] [address] Assigned MTM Pharmacist 06/08/24 Fabi Coates MD [address] [place] [address] 75 [place] [address] Genetics, Clinical 06/18/24 Robin Zepeda MD [address] [place] [address] [address] Assigned Neuroscience Provider 07/08/24 08/07/24 Danna Cardenas PA-C [address] [place] [address] Assigned Heart and Vascular Provider 07/08/24 Felicita Desai, GEMA Lead Machine Package Sealer 07/14/24 07/28/24 Arthur Salas DIMETHYLANILINE SULFATOR OPERATOR [address] [address] Assigned Behavioral Health Provider 08/08/24 Randy Maradiaga DO 909 [place] [address] Assigned Neuroscience Provider 08/08/24 documented as of this encounter
--- OUTSIDE RECORDS SUMMARY | 2024-09-20 19:23 | XMS_ITS | Encounter Summary ---
Author Organization [place] Address [address] [place] [address] Care Team Providers Care Nursery Manager Name Role Phone Yung Madrigal MD Unavailable Unavailable Winston Villatoro OD Unavailable [phone] Denise Woodson APRN PROJECT MANAGER INTERIOR DESIGN Unavailable [phone] Denise Woodson APRN PROJECT MANAGER INTERIOR DESIGN Primary Care Provider Usha Simon APRN PROJECT MANAGER INTERIOR DESIGN Unavailable [phone] Dangelo Salinas MD Unavailable Usha Simon APRN PROJECT MANAGER INTERIOR DESIGN Unavailable Anastasia Stearns RN Unavailable Germaine Lopez CHW Unavailable Robin Zepeda MD Unavailable [phone] Lisa Zambrano MD Unavailable Raul Hoyos MD Unavailable Joya Lira [facility] Unavailable [phone] Joya Lira Joleen Unavailable +[phone] Fabi Coates MD Unavailable [phone] Robin Zepeda MD Unavailable Danna Cardenas PA-C Unavailable [phone] Felicita Desai RN Unavailable Unavailab Arthur Rios [facility] Unavailable [phone] Randy Maradiaga DO Unavailable + Reason for Visit * Reason Onset Date Comments MyChart Communication 06/08/2021 Abdominal pain Encounter Details Date Type Department Care Team (Late st Contact Info) Description 06/08/2021 [facility] [address] [place] [address] Denise Woodson APRN PROJECT MANAGER INTERIOR DESIGN [address] [place] [address] MyChart Communication (Abdominal pain) Social [...] on file Legal Sex Female 4:05 AM RENTAL SALES REPRESENTATIVE Gender Identity Not on file Sexual Orientation Not on file 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 Not on file Not on file Not on file Not on file Not on file documented as of this encounter Plan of Treatment Upcoming Encounters Date Type Department Care Team (Late st Contact Info) Description 09/25/2024 11:00 AM RENTAL SALES REPRESENTATIVE [facility] [address] [place] [address] Denise Woodson, BARRERA PROJECT MANAGER INTERIOR DESIGN [address] [place] [address] 09/29/2024 9:00 AM RENTAL SALES REPRESENTATIVE Virtual Visit [facility] Neurology [address] 3rd [place] [address] Randy Maradiaga, [address] [place] [address] 10/09/2024 1:20 PM RENTAL SALES REPRESENTATIVE Office Visit [facility] Heart [facility] [address] [facility] [address] [place] [phone] Danna Cardenas PA-C 6405 [place], [place] 25[address] 10/15/2024 11:00 AM RENTAL SALES REPRESENTATIVE [facility] [address] [place] [phone] Denise Woodson APRN PROJECT MANAGER INTERIOR DESIGN [address] [place], [place] [address] 10/30/2024 4:00 PM RENTAL SALES REPRESENTATIVE Virtual Visit [facility] Vascular [facility] [address] [place] [phone] Lisa Zambrano MD [address] [place], [place] [address] 12/29/2024 12:45 PM CDT Office Visit [facility] Pediatric Specialty Clinic [address] [place] [phone] Fabi Coates MD [address] [place] [address] 12/29/2024 1:45 PM CDT Office Visit [facility] Pediatric Specialty Clinic [address] [place] [phone] Fabi Coates MD [address] [place] [address] 06/01/2025 11:15 AM CDT Appointment [facility] Imaging [address] [place] [phone] Robin Zepeda MD [address] [place] [address] 06/04/2025 11:00 AM CDT Office Visit [facility] Neurosurgery Clinic [address] 3rd [place] [phone] Robin Zepeda MD [address] [place] [address] Usha Simon APRN PROJECT MANAGER INTERIOR DESIGN [address] [place] [address] documented as of this encounter Visit Diagnoses Not on filedocumented in this encounter Additional Health Concerns Infection Onset Date Last Indicated Resolved Time Rule Out COVID-19 09/13/2024 09/13/2024 09/13/2024 12:31 PM RENTAL SALES REPRESENTATIVE Assessment Noted Time PHQ-9 Depression Total Score: 0 01/05/20 9:31 AM CDT documented as of this encounter Care Teams Nursery Manager Relationship Specialty Start Date End Date Yung Madrigal MD RETIRED PCP - Orthopaedics Orthopedics 08/26/12 01/20/24 Winston Villatoro OD [facility] [place] [address] [place] [address] PCP - Ophthalmology Ophthalmology 02/11/13 Denise Woodson APRN PROJECT MANAGER INTERIOR DESIGN [address] [place] [place] [address] PCP - General Family Practice 09/21/20 Denise Woodson APRN PROJECT MANAGER INTERIOR DESIGN [address] [place] [address] Assigned PCP 07/17/20 Usha Simon APRN PROJECT MANAGER INTERIOR DESIGN [address] [address] Nurse Practitioner Neurological Surgery 01/24/24 Dangelo Salinas MD [address] [place] [address] Neurology 01/27/24 Usha Simon APRN PROJECT MANAGER INTERIOR DESIGN [address] [place] [address] Assigned Neuroscience Provider 02/06/24 03/07/24 Anastasia Stearns, RN Lead Cork Insulator 02/06/24 Germaine Lopez, W Community Health Worker Primary Care - CC 02/18/24 Robin Zepeda MD [address] [place] [address] Assigned Neuroscience Provider 03/08/24 05/07/24 Lisa Zambrano MD [address] [place] [address] Assigned Heart and Vascular Provider 05/08/24 07/07/24 Raul Hoyos MD [address] [place] [address] Assigned Neuroscience Provider 05/08/24 07/07/24 Joya Lira [facility] [address] [place] [address] Pharmacist Pharmacist 05/25/24 Joya Lira [facility] [address] [place] [address] Assigned MTM Pharmacist 06/08/24 Fabi Coates MD [address] [place] [address] 75 [place], [place] [address] Genetics, Clinical 06/18/24 Robin Zepeda MD [address] [place] [address] FH7287ST [place], [place] 854825 Assigned Neuroscience Provider 07/08/24 08/07/24 Danna Cardenas PA-C 6405 [place] [address] Assigned Heart and Vascular Provider 07/08/24 Felicita Desai, RN Lead Cork Insulator 07/14/24 07/28/24 Arthur Salas, [facility] [address] [place] [address] Assigned Behavioral Health Provider 08/08/24 Randy Maradiaga DO [address] [place] [address] Assigned Neuroscience Provider 08/08/24 documented as of this encounter
--- OUTSIDE RECORDS SUMMARY | 2024-09-20 19:23 | XMS_ITS | Encounter Summary ---
Author Organization [facility] Address [address] [place] [address] Care Team Providers Care Check Processing Clerk Name Role Phone Yung Madrigal MD Unavailable Unavailable Winston Villatoro OD Unavailable [phone] Denise Woodson APRN PROCESS MANUFACTURING ENGINEER Unavailable [phone] Denise Woodson APRN PROCESS MANUFACTURING ENGINEER Primary Care Provider Usha Simon APRN PROCESS MANUFACTURING ENGINEER Unavailable [phone] Dangelo Salinas MD Unavailable Usha Simon APRN PROCESS MANUFACTURING ENGINEER Unavailable Anastasia Stearns RN Unavailable Germaine Lopez CHW Unavailable Robin Zepeda MD Unavailable Lisa Zambrano MD Unavailable Raul Hoyos MD Unavailable Joya Lira [facility] Unavailable [phone] Joya Lira Joleen Unavailable Fabi Coates MD Unavailable [phone] Robin Zepeda MD Unavailable [phone] Danna Cardenas PA-C Unavailable [phone] Felicita Desai RN Unavailable Unavailab Arthur Rios Unavailable [phone] LaronRandy bucio Yobany MARTIN Unavailable + Reason for Visit * Reason Comments Medication Refill Encounter Details Date Type Department Care Team (Late st Contact Info) Description 01/07/2023 Refill [facility] [address] [place] [address] Denise [place]son, DIRECTOR OF CORPORATE SPONSORSHIPS [facility] [address] [place] [address] Medication Refill Social History Tobacco [...] on file Legal Sex Female 4:05 AM PCAT INSTRUCTOR Gender Identity Not on file Sexual Orientation Not on file 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 Karla Gross Auto Rebuilder * Telephone Encounter - Karla Morales - 01/17/2023 8:59 AM CDT LVM requesting a call back for an appt (physical). One more attempt will be made. Karla Gross Auto Rebuilder * Telephone Encounter - Arianna Lo - 01/10/2023 3:33 PM CDT Sent [employer] message requesting a call back for an appt. Two more attempts will be made. Arianna Lo [place] Auto Rebuilder * Telephone Encounter - Leslie Mcclellan, RN [...] 0 0 0 Leslie Mcclellan RN, BSN [facility] documented in this encounter Plan of Treatment Upcoming Encounters Date Type Department Care Team (Late st Contact Info) Description 09/25/2024 11:00 AM PCAT INSTRUCTOR Office Visit [facility] [address] [place] [address] Denise Woodson APRN [facility] [address] [place] [address] 09/29/2024 9:00 AM PCAT INSTRUCTOR Virtual Visit [facility] Neurology [facility] [place] [address] [facility] 3rd [place] [address] Randy Maradiaga DO [address] [place] [address] 10/09/2024 1:20 PM PCAT INSTRUCTOR Office Visit [facility] Heart [address] [phone] Danna Cardenas PA-C [address] [facility] [place] [address] 10/15/2024 11:00 AM PCAT INSTRUCTOR [facility] [address] [place] [phone] Denise [place]son, BARRERA PROCESS MANUFACTURING ENGINEER [address] [place] [address] 10/30/2024 4:00 PM PCAT INSTRUCTOR Virtual Visit [facility] Vascular Clinic [place] [address] [place] [phone] Lisa Zambrano MD [address] [place] [address] 12/29/2024 12:45 PM CDT Office Visit [facility] [address] [place] [address] [phone] Fabi Coates MD [address] [place] [address] 12/29/2024 1:45 PM CDT Office Visit [facility] [address] [place] [address] [phone] Fabi Coates MD [address] 255535 06/01/2025 11:15 AM CDT Appointment [facility] Imaging [address] [facility] [address] [place] [phone] Robin Zepeda MD [address] [place] [address] 06/04/2025 11:00 AM CDT Office Visit [address] 3rd [place] [phone] Robin Zepeda MD [address] [place] [address] Usha Simon APRN PROCESS MANUFACTURING ENGINEER [address] [place] [address] documented as of this encounter Visit Diagnoses Diagnosis Moderate persistent asthma without complication Unspecified asthma documented in this encounter Additional Health Concerns Infection Onset Date Last Indicated Resolved Time Rule Out COVID-19 09/13/2024 09/13/2024 09/13/2024 12:31 PM PCAT INSTRUCTOR Assessment Noted Time PHQ-9 Depression Total Score: 0 06/23/20 21 4:11 PM CDT documented as of this encounter Care Teams Check Processing Clerk Relationship Specialty Start Date End Date Yung Madrigal MD RETIRED PCP - Orthopaedics Orthopedics 08/26/12 01/20/24 Winston Villatoro, AMELIE [facility] [address] [facility] [address] [place] [address] PCP - Ophthalmology Ophthalmology 02/11/13 Denise Woodson APRN PROCESS MANUFACTURING ENGINEER [address] [address] PCP - General Family Practice 09/21/20 Denise Woodson APRN PROCESS MANUFACTURING ENGINEER [address] [address] [address] Assigned PCP 07/17/20 Usha Simon APRN PROCESS MANUFACTURING ENGINEER [address] [address] Nurse Practitioner Neurological Surgery 01/24/24 Dangelo Salinas MD [address] [place], [place] [phone] Neurology 01/27/24 Usha Simon APRN PROCESS MANUFACTURING ENGINEER [address] [address] Assigned Neuroscience Provider 02/06/24 03/07/24 Anastasia Stearns, RN Lead Brush Polisher 02/06/24 Germaine Lopez, W Community Health Worker Primary Care - CC 02/18/24 Robin Zepeda MD [address] 335015 Assigned Neuroscience Provider 03/08/24 05/07/24 Lisa Zambrano MD [address] [place] [id number] Assigned Heart and Vascular Provider 05/08/24 07/07/24 Raul Hooys MD [address] 442475 Assigned Neuroscience Provider 05/08/24 07/07/24 Joya Lira [facility] [address] [place], [place] [phone] Pharmacist Pharmacist 05/25/24 Joya Lira [facility] [address] [place] [address] Assigned MTM Pharmacist 06/08/24 Fabi Coates MD [address] [facility] [address] [place], [place] 9[address] Genetics, Clinical 06/18/24 Robin Zepeda MD [address] [place] [address] [id number] [place], [place] 210475 Assigned Neuroscience Provider 07/08/24 08/07/24 Danna Cardenas PA-C 6405 [place] [address] Assigned Heart and Vascular Provider 07/08/24 Felicita Desai, RN Lead Brush Polisher 07/14/24 07/28/24 Arthur Salas [facility] [address] [place] [address] Assigned Behavioral Health Provider 08/08/24 Randy Maradiaga DO [address] [place] [address] Assigned Neuroscience Provider 08/08/24 documented as of this encounter
--- OUTSIDE RECORDS SUMMARY | 2024-09-20 19:23 | XMS_ITS | Encounter Summary ---
Author Organization [facility] Address [address] [place] [address] Care Team Providers Care Vp Cardiovascular Name Role Phone Yung Madrigal MD Unavailable Unavailable Winston Villatoro OD Unavailable [phone] Denise Woodson APRN FOREST AIDE Unavailable [phone] Denise [place]son APRN FOREST AIDE Primary Care Provider Usha Simon APRN FOREST AIDE Unavailable [phone] Dangelo Salinas MD Unavailable Usha Simon APRN FOREST AIDE Unavailable Anastasia Stearns RN Unavailable [phone] Germaine Lopez CHW Unavailable Robin Zepeda MD Unavailable [phone] Lisa Zambrano MD Unavailable Raul Hoyos MD Unavailable [phone] Joya Lira [facility] Unavailable [phone] Joya Lira Joleen Unavailable Fabi Coates MD Unavailable [phone] Robin Zepeda MD Unavailable Danna Cardenas PA-C Unavailable [phone] Felicita Desai RN Unavailable Unavailab Arthur Rios Unavailable [phone] JefRandy oneill Unavailable + Reason for Visit * Reason Comments Medication Refill Encounter Details Date Type Department Care Team (Late st Contact Info) Description 02/19/2022 Refill [facility] [place] [address] [place] [address] Denise [place]son, COSMETICS AND TOILETRIES SALESPERSON FOREST AIDE [address] [place] [address] Medication Refill Social History Tobacco [...] on file Legal Sex Female 4:05 AM COIL CLEANER Gender Identity Not on file Sexual Orientation Not on file 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 Not on [...] st Contact Info) Description 09/25/2024 11:00 AM COIL CLEANER [facility] [address] [place] [phone] Denise [place]son, BARRERA FOREST AIDE [address] [place], [place] [phone] 09/29/2024 9:00 AM COIL CLEANER Virtual Visit [facility] Neurology [facility] 909 [facility] 3rd [place] [phone] Randy Maradiaga, [address] [address] 10/09/2024 1:20 PM COIL CLEANER Office Visit [facility] Heart [facility] [place] [facility] 6405 [facility] [address] [place] [phone] Danna Cardenas PA-C 6405 [place], [place] 465[address] 10/15/2024 11:00 AM COIL CLEANER Office Visit [facility] [address] [place] [phone] Denise [place]son APRN FOREST AIDE [address] [place] [address] 10/30/2024 4:00 PM COIL CLEANER Virtual Visit [facility] Vascular Clinic [place] [address] [place] [phone] Lisa Zambrano MD [address] [place] [address] 12/29/2024 12:45 PM CDT Office Visit [facility] [facility] [address],[place] [phone] Fabi Coates MD 420 [facility] 75 [place], [place] [address] 12/29/2024 1:45 PM CDT Office Visit [facility]ty Clinic 2450 [facility] 12th Fl[address],[place] [address] Fabi Coates MD 420 [facility] 75 [place] [address] 06/01/2025 11:15 AM CDT Appointment [facility] Imaging [address] [place] [phone] Robin Zepeda MD [address] [place] [address]24[address] 06/04/2025 11:00 AM CDT Office Visit [facility] Neurosurgery [address] 3rd [place] [address] Robin Zepeda MD [address] [place] [address] 848935 Usha Simon APRN [address] [address] documented as of this encounter Visit Diagnoses Diagnosis Moderate persistent asthma without complication Unspecified asthma documented in this encounter Additional Health Concerns Infection Onset Date Last Indicated Resolved Time Rule Out COVID-19 09/13/2024 09/13/2024 09/13/2024 12:31 PM COIL CLEANER Assessment Noted Time PHQ-9 Depression Total Score: 0 06/23/20 21 4:11 PM CDT documented as of this encounter Care Teams Vp Cardiovascular Relationship Specialty Start Date End Date Yung Madrigal MD RETIRED PCP - Orthopaedics Orthopedics 08/26/12 01/20/24 Winston Villatoro OD [facility] [address] [place] [address] PCP - Ophthalmology Ophthalmology 02/11/13 Denise [place]son APRN FOREST AIDE [address] [place] [address] PCP - General Family Practice 09/21/20 Denise [place]son APRN FOREST AIDE [address] [place] [address] Assigned PCP 07/17/20 Usha Simon APRN FOREST AIDE [address] [place] [address] 778665 Nurse Practitioner Neurological Surgery 01/24/24 Dangelo Salinas MD [address] [place] [address] Neurology 01/27/24 Usha Simon APRN FOREST AIDE [address] 293805 Assigned Neuroscience Provider 02/06/24 03/07/24 Anastasia Stearns, RN Lead Bread Oven Operator 02/06/24 Germaine Lopez, W Community Health Worker Primary Care - CC 02/18/24 Robin Zepeda MD [address] 334595 Assigned Neuroscience Provider 03/08/24 05/07/24 Lisa Zambrano MD 6405 [facility] [address] [place] [address] Assigned Heart and Vascular Provider 05/08/24 07/07/24 Raul Hoyos MD 909 [facility] [place] [address] Assigned Neuroscience Provider 05/08/24 07/07/24 Joya Lira [facility] [address] [place] [address] Pharmacist Pharmacist 05/25/24 Joya Lira [facility] [address] [place] [address] Assigned MTM Pharmacist 06/08/24 Fabi Coates MD [address] [place] [address] 75 [place], [place] 9[address] Genetics, Clinical 06/18/24 Robin Zepeda MD 909 [facility]2121[place], [place] [address] Assigned Neuroscience Provider 07/08/24 08/07/24 Danna Cardenas PA-C 6405 [place] [address] Assigned Heart and Vascular Provider 07/08/24 Felicita Desai, RN Lead Bread Oven Operator 07/14/24 07/28/24 Arthur Salas [employer] [address] [place] [address] [id number] Assigned Behavioral Health Provider 08/08/24 Randy Maradiaga DO [address] [place] [address] Assigned Neuroscience Provider 08/08/24 documented as of this encounter
--- OUTSIDE RECORDS SUMMARY | 2024-09-20 19:23 | XMS_ITS | Encounter Summary ---
Author Organization [facility] Address [address] [place] [address] Care Team Providers Care Taker Away Name Role Phone Yung Madrigal MD Unavailable Unavailable Winston Villatoro OD Unavailable [phone] Denise [place] APRN MANAGEMENT NURSE RN Unavailable [phone] Denise [place]son APRN MANAGEMENT NURSE RN Primary Care Provider Usha Simon APRN MANAGEMENT NURSE RN Unavailable [phone] Dangelo Salinas MD Unavailable Usha Simon APRN MANAGEMENT NURSE RN Unavailable Anastasia Stearns RN Unavailable Germaine Lopez CHW Unavailable [phone] Robin Zepeda MD Unavailable Lisa Zambrano MD Unavailable Raul Hoyos MD Unavailable [phone] Joya Lira [facility] Unavailable Joya Lira Joleen Unavailable Fabi Coates MD Unavailable [phone] Robin Zepeda MD Unavailable Danna Cardenas PA-C Unavailable Felicita Desai RN Unavailable Unavailab Arthur RiosSW Unavailable [phone] Randy Maradiaga DO Unavailable + Encounter Details Date Type Department Care Team (Late st Contact Info) Description 12/30/2020 MyC Medical Advice [facility] [address] [place] [address] Jessica Phipps, FERMENTER Social History Tobacco Use Types Packs/Day Years Used Date Smoking Tobacco: Never Smokeless Tobacco: Never Alcohol Use Standard Drinks/Week Comments Yes 0 (1 standard drink = 0.6 oz pur e alcohol) minimal PHQ-2 Answer Date Recorded PHQ-2 Score 2 07/13/2020 Comments No Sex and Gender Information Value Date Recorded Sex Assigned at Not on file Legal Sex Female 4:05 AM VENETIAN BLIND CLEANER AND REPAIRER Gender Identity Not on file Sexual [...] (Late Contact Info) Description 09/25/2024 11:00 AM VENETIAN BLIND CLEANER AND REPAIRER Office Visit [facility] [address] [place] [address] Denise [place] [address] [place] [address] 09/29/2024 9:00 AM VENETIAN BLIND CLEANER AND REPAIRER Virtual Visit [facility] Neurology Clinic [address] [place] [address] Randy Maradiaga, [address] [place] [id number] 10/09/2024 1:20 PM VENETIAN BLIND CLEANER AND REPAIRER Office Visit [facility] Heart [facility] 6405 [facility] [address] [place] [phone] Danna Cardenas PA-C [address]405 [place] [address] 10/15/2024 11:00 AM VENETIAN BLIND CLEANER AND REPAIRER [facility] [address] [place] [phone] Denise [place], [place] [address] [place], [place] 8[address]59[address] 10/30/2024 4:00 PM VENETIAN BLIND CLEANER AND REPAIRER Virtual Visit [facility] Vascular [facility] [address] [place] [phone] Lisa Zambrano MD [address] [place] [address] 12/29/2024 12:45 PM CDT Office Visit [facility] Pediatric Specialty Clinic [address] [place], [place] [address]e Explorer [address] [phone] Fabi Coates MD [address] [place] [address] 12/29/2024 1:45 PM CDT Office Visit [facility]ty [facility] [address] [place] [address] [phone] Fabi Coates MD [address] [place] [address] 06/01/2025 11:15 AM CDT Appointment [facility] Imaging [address] [facility] [address] [place] [address] Robin Zepeda MD [address] [place] [address] 06/04/2025 11:00 AM CDT Office [facility] Neurosurgery [address] 3rd [place] [address] Robin Zepeda MD [address] [place] [address] Usha Simon APRN MANAGEMENT NURSE RN [address] [place] [address] documented as of this encounter Visit Diagnoses Not on filedocumented in this encounter Additional Health Concerns Infection Onset Date Last Indicated Resolved Time Rule Out COVID-19 09/13/2024 09/13/2024 09/13/2024 12:31 PM VENETIAN BLIND CLEANER AND REPAIRER Assessment Noted Time PHQ-9 Depression Total Score: 0 06/15/20 19 7:09 PM CDT documented as of this encounter Care Teams Taker Away Relationship Specialty Start Date End Date Yung Madrigal MD RETIRED PCP - Orthopaedics Orthopedics 08/26/12 01/20/24 Winston Villatoro, AMELIE [facility] 701 [facility] [address] [place] [address] PCP - Ophthalmology Ophthalmology 02/11/13 Denise [place] [address] [address] [address] PCP - General Family Practice 09/21/20 Denise [place] [address] [place] [address] Assigned PCP 07/17/20 Usha iSmon APRN MANAGEMENT NURSE RN [address] [address] Nurse Practitioner Neurological Surgery 01/24/24 Dangelo Salinas MD [address] [place] [address] Neurology 01/27/24 Usha Simon APRN MANAGEMENT NURSE RN [address] [place] [address] Assigned Neuroscience Provider 02/06/24 03/07/24 Anastasia Stearns, RN Lead Assembly And Packing Supervisor 02/06/24 Germaine Lopez, W Community Health Worker Primary Care - CC 02/18/24 Robin Zepeda MD [address] [address] Assigned Neuroscience Provider 03/08/24 05/07/24 Lisa Zambrano MD [address] [place] [address] Assigned Heart and Vascular Provider 05/08/24 07/07/24 Raul Hoyos MD [address] [address] Assigned Neuroscience Provider 05/08/24 07/07/24 Joya Lira [facility] [address] [place] [address] Pharmacist Pharmacist 05/25/24 Soraya Joya [facility] [address] [place] [address] Assigned MTM Pharmacist 06/08/24 Fabi Coates MD [address] [place] [address] 75 [place] [address] Genetics, Clinical 06/18/24 Robin Zepeda MD 909 [facility] TC1796DO [place] [address] Assigned Neuroscience Provider 07/08/24 08/07/24 Danna Cardenas PA-C 6405 [place] [address] Assigned Heart and Vascular Provider 07/08/24 Felicita Desai, RN Lead Assembly And Packing Supervisor 07/14/24 07/28/24 Arthur Salas, [facility] [address] [place] [address] Assigned Behavioral Health Provider 08/08/24 Randy Maradiaga DO 909 [place], [place] [address] Assigned Neuroscience Provider 08/08/24 documented as of this encounter
--- OUTSIDE RECORDS SUMMARY | 2024-09-20 19:23 | XMS_ITS | Encounter Summary ---
Author Organization [place] Address [address] [place] [address] Care Team Providers Care Hiv Prevention Specialist Name Role Phone Winston Villatoro OD Unavailable [phone] Denise Woodson APRN END WORKER Unavailable [phone] Denise Woodson APRN END WORKER Primary Care Provider Usha Simon APRN END WORKER Unavailable Dangelo Salinas MD Unavailable Usha Simon APRN END WORKER Unavailable Anastasia Stearns RN Unavailable Germaine Lopez CH Unavailable [phone] Robin Zepeda MD Unavailable [phone] Lisa Zambrano MD Unavailable Raul Hoyos MD Unavailable Joya Lira RP Unavailable [phone] Joya Lira RPJoleen Unavailable Fabi Cotaes MD Unavailable [phone] Robin Zepeda MD Unavailable [phone] Danna Cardenas PA-C Unavailable [phone] Felicita Desai RN Unavailable Unavailab Arthur Rios [facility] Unavailable Randy Maradiaga DO Unavailable + Encounter Details Date Type Department Care Team (Late st Contact Info) Description 01/27/2024 MyC Medical Advice [facility] [address] [address] Phoebe Del Cid Social History [...] file Legal Sex Female 4:05 AM LEAD ORACLE DEVELOPER Gender Identity Not on file Sexual [...] Contact Info) Description 09/25/2024 11:00 AM LEAD ORACLE DEVELOPER Office Visit [facility] [address] [place] [phone] Denise Woodson APRN [facility] [address] [place], [place] [address] 09/29/2024 9:00 AM LEAD ORACLE DEVELOPER Virtual Visit [facility] [address] [address] Randy Maradiaga DO [address] [place] [address] 10/09/2024 1:20 PM LEAD ORACLE DEVELOPER Office Visit [facility] [address] [place] [phone] Danna Cardenas PA-C [address] [facility] [place] [id number] 10/15/2024 11:00 AM LEAD ORACLE DEVELOPER Office Visit [facility] [address] [place] [phone] Denise Woodson APRN [facility] [address] [place] [address] 10/30/2024 4:00 PM LEAD ORACLE DEVELOPER Virtual Visit [facility] [address] [place] [phone] Lisa Zambrano MD [address] [place] [address] 12/29/2024 12:45 PM CDT Office Visit [facility] [address] [place] [address] [phone] Fabi Coates MD [address] [place] [address] 817245 12/29/2024 1:45 PM CDT Office Visit [facility] [address] [place], [place] [address] Explorer [address] [phone] Fabi Coates MD [address] [place] [address] 9426[address] 06/01/2025 11:15 AM CDT Appointment [facility] [address] [place] [phone] Robin Zepeda MD [address] [place] [address] [address] 06/04/2025 11:00 AM CDT Office Visit [facility] [address] 3rd [place] [phone] Robin Zepeda MD [address] [place] [address] Usha Simon APRN END WORKER [address] [place] [address] documented as of this encounter Visit Diagnoses Not on filedocumented in this encounter Additional Health Concerns Infection Onset Date Last Indicated Resolved Time Rule Out COVID-19 09/13/2024 09/13/2024 09/13/2024 12:31 PM LEAD ORACLE DEVELOPER Assessment Noted Time PHQ-9 Depression Total Score: 0 06/23/20 21 4:11 PM CDT documented as of this encounter Care Teams Hiv Prevention Specialist Relationship Specialty Start Date End Date Winston Villatoro OD [facility] [address] [facility] [address] [place] [address] PCP - Ophthalmology Ophthalmology 02/11/13 Denise Woodson APRN END WORKER [address] [place] [address] PCP - General Family Practice 09/21/20 Denise Woodson APRN END WORKER [address] [place] [address] Assigned PCP 07/17/20 Usha Simon APRN END WORKER [address] [place] [address] Nurse Practitioner Neurological Surgery 01/24/24 Dangelo Salinas MD [address] [place] [address] Neurology 01/27/24 Usha Simon APRN END WORKER [address] [address] Assigned Neuroscience Provider 02/06/24 03/07/24 Anastasia Stearns, RN Lead Painter And Decorator Apprentice 02/06/24 Germaine Lopez, W Community Health Worker Primary Care - CC 02/18/24 Robin Zepeda MD [address] [address] Assigned Neuroscience Provider 03/08/24 05/07/24 Lisa Zambrano MD [address] [place] [address] Assigned Heart and Vascular Provider 05/08/24 07/07/24 Raul Hoyos MD [address] [address] Assigned Neuroscience Provider 05/08/24 07/07/24 Joya Lira RPH [address] [address] Pharmacist Pharmacist 05/25/24 Joya Lira RPH [address] [place] [address] Assigned MTM Pharmacist 06/08/24 Fabi Coates MD [address] [place] [address] 75 [place] [address] Genetics, Clinical 06/18/24 Robin Zepeda MD 9 [facility] [id number] [place] [address] Assigned Neuroscience Provider 07/08/24 08/07/24 Danna Cardenas PA-C 6405 [place] [address] Assigned Heart and Vascular Provider 07/08/24 Felicita Desai RN Lead Painter And Decorator Apprentice 07/14/24 07/28/24 Arthur Salas, [facility] [address] [place] [address] Assigned Behavioral Health Provider 08/08/24 Randy Maradiaga DO [address] [place] [address] Assigned Neuroscience Provider 08/08/24 documented as of this encounter
--- OUTSIDE RECORDS SUMMARY | 2024-09-20 19:23 | XMS_ITS | Encounter Summary ---
Author Organization [place] Address [address] [place] [address] Care Team Providers Care Paint Grinder Name Role Phone Yung Madrigal MD Unavailable Unavailable Winston Villatoro OD Unavailable [phone] Denise Woodson APRN SALES DEPARTMENT CLERK Unavailable [phone] Denise Woodson APRN SALES DEPARTMENT CLERK Primary Care Provider Usha Simon APRN SALES DEPARTMENT CLERK Unavailable [phone] Dangelo Salinas MD Unavailable Usha Simon APRN SALES DEPARTMENT CLERK Unavailable Anastasia Stearns RN Unavailable Germaine Lopez CHW Unavailable Robni Zepeda MD Unavailable [phone] Lisa Zambrano MD Unavailable Raul Hoyos MD Unavailable Joya Lira [facility] Unavailable Joya Lira Joleen Unavailable [phone] Fabi Coates MD Unavailable [phone] Robin Zepeda MD Unavailable [phone] Danna Cardenas PA-C Unavailable Felicita Desai RN Unavailable Unavailab Arthur RiosSW Unavailable [phone] Randy Maradiaga DO Unavailable + Encounter Details Date Type Department Care Team (Late st Contact Info) Description 01/10/2023 MyC Medical Advice [facility] [address] [place] [phone] Arianna Lo Social History Tobacco Use Types Packs/Day Years Used Date Smoking Tobacco: Never Smokeless Tobacco: Never Alcohol Use Standard Drinks/Week Comments Not Currently 0 (1 standard drink = 0.6 oz pur e alcohol) minimal PHQ-2 Answer Date Recorded PHQ-2 Score 0 07/27/2021 Comments No Sex and Gender Information Value Date Recorded Sex Assigned at Not on file Legal Sex Female 4:05 AM RAISE DRILL OPERATOR Gender Identity Not on file Sexual [...] st Contact Info) Description 09/25/2024 11:00 AM RAISE DRILL OPERATOR Office Visit [facility] [address] [place] [phone] Denise Woodson APRN SALES DEPARTMENT CLERK [address] [place], [place] 5038[address] 09/29/2024 9:00 AM RAISE DRILL OPERATOR Virtual Visit [facility]rology [facility] [address] [place] [address] 3rd [place] [address] Randy Maradiaga, [address] [place] [address]135 10/09/2024 1:20 PM RAISE DRILL OPERATOR Office Visit [facility] Heart [address] [place] [phone] Danna Cardenas PA-C [address] [facility] [place], [place] [address] 10/15/2024 11:00 AM RAISE DRILL OPERATOR Office Visit [facility] [address] [place] [phone] Denise Woodson, [place] SALES DEPARTMENT CLERK [address] [place], [place] 8806468 10/30/2024 4:00 PM RAISE DRILL OPERATOR Virtual Visit [facility] Vascular [facility] [address] [place] [phone] Lisa Zambrano MD [address] [place], [place] [address] 12/29/2024 12:45 PM CDT Office Visit [facility] [address] [place], [place] [address] [address] [phone] Fabi Coates MD [address] [place] [address] 905465 12/29/2024 1:45 PM CDT Office Visit [facility] [address] [place], [place] [address]e Explorer [address] [phone] Fabi Coates MD [address] [place] [address] 06/01/2025 11:15 AM CDT Appointment [facility] [address] [place] [phone] Robin Zepeda MD [address] [place] [address] [place], [place] [address] 06/04/2025 11:00 AM CDT Office Visit [facility] Clinic [address] [place] [phone] Robin Zepeda MD [address] [place] [address] 784735 Usha Simon APRN SALES DEPARTMENT CLERK [address] [place] [address] documented as of this encounter Visit Diagnoses Not on filedocumented in this encounter Additional Health Concerns Infection Onset Date Last Indicated Resolved Time Rule Out COVID-19 09/13/2024 09/13/2024 09/13/2024 12:31 PM RAISE DRILL OPERATOR Assessment Noted Time PHQ-9 Depression Total Score: 0 06/23/20 21 4:11 PM CDT documented as of this encounter Care Teams Paint Grinder Relationship Specialty Start Date End Date Yung Madrigal MD RETIRED PCP - Orthopaedics Orthopedics 08/26/12 01/20/24 Winston Villatoro OD [facility] [place] [address] [place] [address] PCP - Ophthalmology Ophthalmology 02/11/13 Denise Woodson APRN SALES DEPARTMENT CLERK [address] [place] [address] PCP - General Family Practice 09/21/20 Denise Woodson APRN SALES DEPARTMENT CLERK [address] [place] [address] Assigned PCP 07/17/20 Usha Simon APRN SALES DEPARTMENT CLERK [address] [address] Nurse Practitioner Neurological Surgery 01/24/24 Dangelo Salinas MD [address] [place] [address] Neurology 01/27/24 Usha Simon APRN SALES DEPARTMENT CLERK [address] [address] Assigned Neuroscience Provider 02/06/24 03/07/24 Anastasia Stearns, RN Lead Tub Puller 02/06/24 Germaine Lopez, [facility] Community Health Worker Primary Care - CC 02/18/24 Robin Zepeda MD [address] [address] Assigned Neuroscience Provider 03/08/24 05/07/24 Lisa Zambrano MD [address] [facility] [address] [place], [place] 4[address] Assigned Heart and Vascular Provider 05/08/24 07/07/24 Raul Hoyos MD [address] [address] Assigned Neuroscience Provider 05/08/24 07/07/24 Joya Lira RPH [address] [place] [address] Pharmacist Pharmacist 05/25/24 Joya Lira [facility] [address] [place] [address] Assigned MTM Pharmacist 06/08/24 Fabi Coates MD [address] [facility] 75 [place] [address] Genetics, Clinical 06/18/24 Robin Zepeda MD 909 [facility] [id number] [place], [place] 754815 Assigned Neuroscience Provider 07/08/24 08/07/24 Danna Cardenas PA-C 6405 [place] [address] Assigned Heart and Vascular Provider 07/08/24 Felicita Desai, RN Lead Tub Puller 07/14/24 07/28/24 Arthur Salas [facility] [address] [place] [address] Assigned Behavioral Health Provider 08/08/24 Randy Maradiaga DO [address] [place] [address] 621925 Assigned Neuroscience Provider 08/08/24 documented as of this encounter
--- OUTSIDE RECORDS SUMMARY | 2024-09-20 19:23 | XMS_ITS | Encounter Summary ---
Author Organization [place] Address [address] [place] [address] Care Team Providers Care Belt Sander Stone Name Role Phone Yung Madrigal MD Unavailable Unavailable Winston Villatoro OD Unavailable Serum, Clara Garland MD Primary Care Provider Serum, Clara Garland MD Unavailable [phone] Denise Woodson APRN CLOUD SERVICES ARCHITECT Unavailable [phone] Denise Woodson TOP TAPER MACHINE CLOUD SERVICES ARCHITECT Primary Care Provider Usha Simon TOP TAPER MACHINE CLOUD SERVICES ARCHITECT Unavailable Dangelo Salinas MD Unavailable Usha Simon TOP TAPER MACHINE CLOUD SERVICES ARCHITECT Unavailable Anastasia Stearns RN Unavailable [phone] Germaine Lopez CHW Unavailable Rboin Zepeda MD Unavailable [phone] Lisa Zambrano MD Unavailable [phone] Raul Hoyos MD Unavailable Joya Lira [facility] Unavailable [phone] Joya Lira [facility] Unavailable Fabi Coates MD Unavailable [phone] Robin Catalan MD Unavailable [phone] Danna Cardenas PA-C Unavailable Felicita Desai RN Unavailable Unavailab Arthur RiosSW Unavailable Randy Maradiaga DO Unavailable + Reason for Visit * Reason Onset Date Comments LAB REQUEST 06/16/2019 Encounter Details Date Type Department Care Team (Late st Contact Info) Description 06/16/2019 MyC Medical Advice [facility] [address] [facility] [address] [place] [address] Serum, Clara Garland MD [address] [place] [address] LAB REQUEST Social History Tobacco [...] on file Legal Sex Female 4:05 AM PLANOGRAPH OPERATOR Gender Identity Not on file Sexual Orientation Not on file 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 Patient requesting to check TSH and antibodies for pt reported possible yonas's. Pended TSH for provider review. documented in this encounter Plan of Treatment Upcoming Encounters Date Type Department Care Team (Late st Contact Info) Description 09/25/2024 11:00 AM PLANOGRAPH OPERATOR Office Visit [address] [phone] Denise Woodson, TOP TAPER MACHINE CLOUD SERVICES ARCHITECT [address] [place], [place] 74[address] 09/29/2024 9:00 AM PLANOGRAPH OPERATOR Virtual Visit [facility] [address] 3rd [place] [phone] Randy Maradiaga, [address] [address] 10/09/2024 1:20 PM PLANOGRAPH OPERATOR Office Visit [facility] Heart [facility] 6[address] [facility] [address] [place] [phone] Danna Cardenas PA-C 6405 [place], [place] 47[address]85 10/15/2024 11:00 AM PLANOGRAPH OPERATOR Office Visit [facility] [address] [place] [phone] Denise Woodson, BARRERA CLOUD SERVICES ARCHITECT [address] [place] [address] 10/30/2024 4:00 PM PLANOGRAPH OPERATOR Virtual Visit [facility] Vascular [facility] [address] [place] [phone] Lisa Zambrano MD [address] [place] [address] 12/29/2024 12:45 PM CDT Office Visit [facility] [address] [facility] [address],[place] [phone] Fabi Coates MD 420 [facility] 75 [place], [place] [address] 12/29/2024 1:45 PM CDT Office Visit [facility] 2450 [facility] Explorer [facility] [address],[place] [phone] Fabi Coates MD [address] [facility] 75 [place], [place] [address] 06/01/2025 11:15 AM CDT Appointment [facility] [address] [place] [phone] Robin Zepeda MD [address] [place] [address] 06/04/2025 11:00 AM CDT Office Visit [facility] Neurosurgery [facility] 909 [facility] 3rd [place] [phone] Robin Zepeda MD [address] [place] [address] Usha Simon APRN [address] [address] documented as of this encounter Results * Follicle stimulating hormone (06/22/2019 3:36 PM CDT) FSH 9.5 IU/L 06/23/2019 2:32 PM CDT [facility] Comment: FSH Reference Range Female: Follicular 2.5-10.2 Mid-cycle 3.4-33.4 Luteal 1.5-9.1 Postmenopausal 23.0-116.3 Blood specimen (specimen) 06/22/2019 3:36 PM CDT 06/22/2019 3:37 PM CDT Clara Cornell MD LAB - BLOOD ORDERABLES Final Result [facility] [address] [place] [address] * TSH with free T4 reflex FUTURE anytime (06/22/2019 3:36 PM CDT) TSH 3.30 0.40 - 4.00 mU/L 06/23/2019 3:12 PM CDT [facility] Blood specimen (specimen) 06/22/2019 3:36 PM CDT 06/22/2019 3:37 PM CDT Clara Cornell MD LAB - BLOOD ORDERABLES Final Result Performing Organization Address City/[facility] [address]/ZIP Co de Phone Number [facility] [address] [place] [address] documented in this encounter Visit Diagnoses Diagnosis Anti-TPO antibodies present- Primary Other and unspecified nonspecific immunological findings Excessive sweating Generalized hyperhidrosis documented in this encounter Additional Health Concerns Infection Onset Date Last Indicated Resolved Time Rule Out COVID-19 09/13/2024 09/13/2024 09/13/2024 12:31 PM PLANOGRAPH OPERATOR Assessment Noted Time PHQ-9 Depression Total Score: 0 06/15/20 19 7:09 PM CDT documented as of this encounter Care Teams Belt Sander Stone Relationship Specialty Start Date End Date Yung Madrigal MD RETIRED PCP - Orthopaedics Orthopedics 08/26/12 01/20/24 Winston Villatoro OD [facility] [place] [address] [place] [address] PCP - Ophthalmology Ophthalmology 02/11/13 Clara Cornell MD [facility] [place] [address] [place] [address] PCP - General Internal Medicine 02/07/17 09/20/20 Denise Woodson APRN CLOUD SERVICES ARCHITECT [address] [place] [id number] PCP - General Family Practice 09/21/20 Clara Cornell MD [address] [place] [address] Assigned PCP 01/17/17 07/16/20 Denise Woodson APRN CLOUD SERVICES ARCHITECT [address] [place] [id number] Assigned PCP 07/17/20 Usha Simon APRN CLOUD SERVICES ARCHITECT [address] [place] [address] 357675 Nurse Practitioner Neurological Surgery 01/24/24 Dangelo Salinas MD [address] [place] [address] Neurology 01/27/24 Usha Simon APRN CLOUD SERVICES ARCHITECT [address] [place] [address] 933755 Assigned Neuroscience Provider 02/06/24 03/07/24 Anastasia Stearns, RN Lead Power Plant Operators Supervisor 02/06/24 Germaine Lopez, CHW Community Health Worker Primary Care - CC 02/18/24 Robin Zepeda MD [address] 6937[address] Assigned Neuroscience Provider 03/08/24 05/07/24 Lisa Zambrano MD 6[address] [facility] [place] [address] Assigned Heart and Vascular Provider 05/08/24 07/07/24 Raul Hoyos MD [address] [place] [address], [place] [address] Assigned Neuroscience Provider 05/08/24 07/07/24 Joya Lira [facility] [address] [place], [place] [phone] Pharmacist Pharmacist 05/25/24 Joya Lira [facility] [address] [place] [address] Assigned MTM Pharmacist 06/08/24 Fabi Coates MD [address] [place] [address] 75 [place], [place] 240[address] Genetics, Clinical 06/18/24 Robin Zepeda MD [address] [address] Assigned Neuroscience Provider 07/08/24 08/07/24 Danna Cardenas PA-C 6405 [place] [address] Assigned Heart and Vascular Provider 07/08/24 Felicita Desai, RN Lead Power Plant Operators Supervisor 07/14/24 07/28/24 Arthur Salas [facility] [address] [place] [address] Assigned Behavioral Health Provider 08/08/24 Randy Maradiaga DO [address] [place] [address] Assigned Neuroscience Provider 08/08/24 documented as of this encounter
--- OUTSIDE RECORDS SUMMARY | 2024-09-20 19:23 | XMS_ITS | Encounter Summary ---
Author Organization [facility] Address [address] [place] [address] Care Team Providers Care Creative Strategist Name Role Phone Yung Madrigal MD Unavailable Unavailable Winston Villatoro OD Unavailable Serum, Clara Garland MD Primary Care Provider Serum, Clara Garland MD Unavailable [phone] Denise Woodson APRN WELDER JOURNEYMAN Unavailable [phone] Denise Woodson REGULATORY CONSULTANT WELDER JOURNEYMAN Primary Care Provider Usha Simon REGULATORY CONSULTANT WELDER JOURNEYMAN Unavailable Dangelo Salinas MD Unavailable Usha Simon REGULATORY CONSULTANT WELDER JOURNEYMAN Unavailable Anastasia Stearns RN Unavailable [phone] Germaine Lopez CHW Unavailable Robin Zepeda MD Unavailable Lisa Zambrano MD Unavailable + [phone] Raul Hoyos MD Unavailable Joya Lira [facility] Unavailable [phone] Joya Lira [facility] Unavailable [phone] Fabi Coates MD Unavailable [phone] Robin Catalan MD Unavailable Danna Cardenas PA-C Unavailable Felicita Desai RN Unavailable Unavailab Arthur RiosSW Unavailable Randy Maradiaga DO Unavailable + Encounter Details Date Type Department Care Team (Late st Contact Info) Description 01/21/2019 MyC Medical Advice [facility] [address] [facility] [address] [place] [phone] Robinson [facility] Social History Tobacco Use Types Packs/Day Years Used Date Smoking Tobacco: Never Smokeless Tobacco: Never Alcohol Use Standard Drinks/Week Comments Yes 0 (1 standard drink = 0.6 oz pur e alcohol) minimal PHQ-2 Answer Date Recorded PHQ-2 Score 0 09/23/2018 Comments No Sex and Gender Information Value Date Recorded Sex Assigned at Not on file Legal Sex Female 4:05 AM CAUSTIC MIXER Gender Identity Not on file Sexual Orientation [...] st Contact Info) Description 09/25/2024 11:00 AM CAUSTIC MIXER Office [facility] [address] [place] [address] Denise Woodson APRN [facility] [address] [place], [place] [address] 09/29/2024 9:00 AM CAUSTIC MIXER Virtual Visit [facility] Neurology Clinic [address] [address] Randy Maradiaga DO [address] [place] [address] 068445 10/09/2024 1:20 PM CAUSTIC MIXER Office Visit [facility] Heart [facility] [address] [facility] [address] [place] [phone] Danna Cardenas PA-C [address] [facility] [place] [address] 10/15/2024 11:00 AM CAUSTIC MIXER [facility] [address] [place] [phone] Chintna Denise, BARRERA WELDER JOURNEYMAN [address] [place], [place] 3751268 10/30/2024 4:00 PM CAUSTIC MIXER Virtual Visit [facility] Vascular [facility] [address] [place] [phone] Lisa Zambrano MD [address] [place] 39[address] 12/29/2024 12:45 PM CDT Office Visit [facility]ty [facility] [address] [place], [place] [address]e [facility] [address] [phone] Fabi Coates MD [address] [place] [address] 243635 12/29/2024 1:45 PM CDT Office Visit [facility] [address] [place], [place] [address] [facility] [address] [phone] Fabi Coates MD [address] [place] [address] 762385 06/01/2025 11:15 AM CDT Appointment [facility] Imaging [address] [facility] [address] [place] [phone] Robin Zepeda MD [address] [place] [address] 06/04/2025 11:00 AM CDT Office Visit [facility] Neurosurgery [address] 3rd [place] [phone] Robin Zepeda MD [address] [place] [address] 785075 Usha Simon APRN WELDER JOURNEYMAN [address] [place] [address] 940055 documented as of this encounter Visit Diagnoses Not on filedocumented in this encounter Additional Health Concerns Infection Onset Date Last Indicated Resolved Time Rule Out COVID-19 09/13/2024 09/13/2024 09/13/2024 12:31 PM CAUSTIC MIXER Assessment Noted Time PHQ-9 Depression Total Score: 0 02/09/20 17 7:29 AM CDT documented as of this encounter Care Teams Creative Strategist Relationship Specialty Start Date End Date Yung Madrigal MD RETIRED PCP - Orthopaedics Orthopedics 08/26/12 01/20/24 Winston Villatoro OD [facility] [address] [place] [address] PCP - Ophthalmology Ophthalmology 02/11/13 Clara Cornell MD [facility] [address] [place] [address] PCP - General Internal Medicine 02/07/17 09/20/20 Denise Woodson APRN WELDER JOURNEYMAN [address] [place] [address] PCP - General Family Practice 09/21/20 Clara Cornell MD 8675 [place], [place] [id number] Assigned PCP 01/17/17 07/16/20 Denise Woodson APRN WELDER JOURNEYMAN [address] [place] [address] Assigned PCP 07/17/20 Usha Simon APRN WELDER JOURNEYMAN [address] [id number] Nurse Practitioner Neurological Surgery 01/24/24 Dangelo Salinas MD [address] [facility] [place], [place] [phone] Neurology 01/27/24 Usha Simon APRN WELDER JOURNEYMAN [address] [phone] Assigned Neuroscience Provider 02/06/24 03/07/24 Anastasia Stearns, RN Lead Fire Control Assistant 02/06/24 Germaine Lopez, W Community Health Worker Primary Care - CC 02/18/24 Robin Zepeda MD [address] [phone] Assigned Neuroscience Provider 03/08/24 05/07/24 Lisa Zambrano MD [address] [facility] [place] 604285 Assigned Heart and Vascular Provider 05/08/24 07/07/24 Raul Hoyos MD 909 [facility]121[address] [place] [address] Assigned Neuroscience Provider 05/08/24 07/07/24 Joya Lira [facility] [address] [place] [address] Pharmacist Pharmacist 05/25/24 Joya Lira [facility] [address] [place] [address] Assigned MTM Pharmacist 06/08/24 Fabi Coates MD [address] [place] [address] 75 [place] [address] Genetics, Clinical 06/18/24 Robin Zepeda MD 909 [facility]121[address] [place] [address] Assigned Neuroscience Provider 07/08/24 08/07/24 Danna Cardenas PA-C [address] [place] [address] Assigned Heart and Vascular Provider 07/08/24 Felicita Desai, GEMA Lead Fire Control Assistant 07/14/24 07/28/24 Arthur Salas [facility] [address] [place] [address] Assigned Behavioral Health Provider 08/08/24 Randy Maradiaga DO 909 [place] [address] Assigned Neuroscience Provider 08/08/24 documented as of this encounter
--- OUTSIDE RECORDS SUMMARY | 2024-09-20 19:23 | XMS_ITS | Encounter Summary ---
Author Organization [facility] Address [address] [place] [address] Care Team Providers Care Provider Network Analyst Name Role Phone Yung Madrigal MD Unavailable Unavailable Winston Villatoro OD Unavailable [phone] Denise Woodson APRN APPLIED TECHNOLOGIST Unavailable [phone] Denise Woodson APRN APPLIED TECHNOLOGIST Primary Care Provider Usha Simon APRN APPLIED TECHNOLOGIST Unavailable [phone] Dangelo Salinas MD Unavailable Usha Simon APRN APPLIED TECHNOLOGIST Unavailable Anastasia Stearns RN Unavailable [phone] Germaine Lopez CHW Unavailable Robin Zepeda MD Unavailable [phone] Lisa Zambrano MD Unavailable Raul Hoyos MD Unavailable Joya Lira [facility] Unavailable [phone] Joya Lira Joleen Unavailable Fabi Coates MD Unavailable [phone] Robin Zepeda MD Unavailable Danna Cardenas PA-C Unavailable Felicita Desai RN Unavailable Unavailab Arthur RiosSW Unavailable [phone] Randy Maradiaga DO Unavailable + Encounter Details Date Type Department Care Team (Late st Contact Info) Description 01/22/2022 MyC Medical Advice [facility] [address] [place] [address] Angelo Escobar Social History Tobacco [...] on file Legal Sex Female 4:05 AM CONTROL VALVE TECHNICIAN Gender Identity Not on file Sexual [...] (Late Contact Info) Description 09/25/2024 11:00 AM CONTROL VALVE TECHNICIAN Office Visit [facility] [address] [place] [address] Denise Woodson APRN [facility] [address] [place] [address] 09/29/2024 9:00 AM CONTROL VALVE TECHNICIAN Virtual Visit [facility] Neurology [address] 3rd [place] [address] Randy Maradiaga DO [address] [place] [address] 10/09/2024 1:20 PM CONTROL VALVE TECHNICIAN Office Visit [facility] Heart [facility] [address] [facility] [address] [place] [phone] Danna Cardenas PA-C 6405 [place] [address] 10/15/2024 11:00 AM CONTROL VALVE TECHNICIAN [facility] [address] [place] [address] Denise Woodson APRN APPLIED TECHNOLOGIST [address] [place], [place] 4886268 10/30/2024 4:00 PM CONTROL VALVE TECHNICIAN Virtual Visit [facility] Vascular [facility] [address] [place] [phone] Lisa Zambrano MD [address] [place], [place] 67[address] 12/29/2024 12:45 PM CDT Office Visit [facility] [address] [place] [address] [phone] Fabi Coates MD [address] [place] [address] 768025 12/29/2024 1:45 PM CDT Office Visit [facility] [address] [place] [phone] Fabi Coates MD [address] [place] [address] 012615 06/01/2025 11:15 AM CDT Appointment [facility] Imaging [address] [facility] [address] [place] [phone] Robin Zepeda MD [address] [place] [address] 06/04/2025 11:00 AM CDT Office Visit [facility] Neurosurgery Clinic [address] 3rd [place] [phone] Robin Zepeda MD [address] [place] [address] 491495 Usha Simon APRN APPLIED TECHNOLOGIST [address] [place] [address] 179835 documented as of this encounter Visit Diagnoses Not on filedocumented in this encounter Additional Health Concerns Infection Onset Date Last Indicated Resolved Time Rule Out COVID-19 09/13/2024 09/13/2024 09/13/2024 12:31 PM CONTROL VALVE TECHNICIAN Assessment Noted Time PHQ-9 Depression Total Score: 0 06/23/20 21 4:11 PM CDT documented as of this encounter Care Teams Provider Network Analyst Relationship Specialty Start Date End Date Yung Madrigal MD RETIRED PCP - Orthopaedics Orthopedics 08/26/12 01/20/24 Winston Villatoro OD [facility] [place] [address] [place] [address] PCP - Ophthalmology Ophthalmology 02/11/13 Denise Woodson APRN APPLIED TECHNOLOGIST [address] [place] [address] PCP - General Family Practice 09/21/20 Denise Woodson APRN APPLIED TECHNOLOGIST [address] [address] [facility] [place] [address] Assigned PCP 07/17/20 Usha Simno APRN APPLIED TECHNOLOGIST [address] [address] Nurse Practitioner Neurological Surgery 01/24/24 Dangelo Salinas MD [address] [place] [address] Neurology 01/27/24 Usha Simon APRN APPLIED TECHNOLOGIST [address] [place] [address] 288125 Assigned Neuroscience Provider 02/06/24 03/07/24 Anastasia Stearns, RN Lead Skein Bander 02/06/24 Germaine Lopez, W Community Health Worker Primary Care - CC 02/18/24 Robin Zepeda MD [address] [place] [address] Assigned Neuroscience Provider 03/08/24 05/07/24 Lisa Zambrano MD [address] [place] [address] Assigned Heart and Vascular Provider 05/08/24 07/07/24 Raul Hoyos MD [address] [place] [address] Assigned Neuroscience Provider 05/08/24 07/07/24 Joya Lira [facility] [address] [place] [address] Pharmacist Pharmacist 05/25/24 Joya Lira [facility] [address] [place] [address] Assigned MTM Pharmacist 06/08/24 Fabi Coates MD [address] [place] [address] 75 [place] [address] Genetics, Clinical 06/18/24 Robin Zepeda MD 9 [facility] [place] [facility] US3375MC [place], [place] [address]95 Assigned Neuroscience Provider 07/08/24 08/07/24 Danna Cardenas PA-C 6405 [place] [address] Assigned Heart and Vascular Provider 07/08/24 Felicita Desai RN Lead Skein Bander 07/14/24 07/28/24 Arthur Salas [facility] [address] [place] [address] Assigned Behavioral Health Provider 08/08/24 Randy Maradiaga DO [address] [place] [address] Assigned Neuroscience Provider 08/08/24 documented as of this encounter
--- OUTSIDE RECORDS SUMMARY | 2024-09-20 19:23 | XMS_ITS | Encounter Summary ---
Author Organization [facility] Address [address] [place] [address] Care Team Providers Care Line Controller Name Role Phone Yung Madrigal MD Unavailable Unavailable Winston Villatoro OD Unavailable Serum, Clara Garland MD Primary Care Provider Serum, Clara Garland MD Unavailable [phone] Denise Woodson APRN BATTERY TESTER AND REPAIRER Unavailable [phone] Denise Woodson GLAZE WIPER BATTERY TESTER AND REPAIRER Primary Care Provider Usha Simon GLAZE WIPER BATTERY TESTER AND REPAIRER Unavailable Dangelo Salinas MD Unavailable Usha Simon GLAZE WIPER BATTERY TESTER AND REPAIRER Unavailable Anastasia Stearns RN Unavailable [phone] Germaine Lopez CHW Unavailable Robin Zepeda MD Unavailable Lisa Zambrano MD Unavailable + [phone] Raul Hoyos MD Unavailable Joya Lira [facility] Unavailable [phone] Joya Lira [facility] Unavailable Fabi Coates MD Unavailable [phone] Robin Catalan MD Unavailable Danna Cardenas PA-C Unavailable Felicita Desai RN Unavailable Unavailab Arthur RiosSW Unavailable Randy Maradiaga DO Unavailable + Encounter Details Date Type Department Care Team (Late st Contact Info) Description 06/16/2019 MyC Medical Advice [facility] [address] [facility] [address] [place] [address] Serum, Clara Garland MD [address] [place] [address] Social History Tobacco Use Types Packs/Day Years Used Date Smoking Tobacco: Never Smokeless Tobacco: Never Alcohol Use Standard Drinks/Week Comments Yes 0 (1 standard drink = 0.6 oz pur e alcohol) minimal PHQ-2 Answer Date Recorded PHQ-2 Score 0 09/23/2018 Comments No Sex and Gender Information Value Date Recorded Sex Assigned at Not on file Legal Sex Female 4:05 AM CARPET INSTALLER HELPER Gender Identity Not on file Sexual [...] st Contact Info) Description 09/25/2024 11:00 AM CARPET INSTALLER HELPER Office Visit [facility] [address] [place] [address] Denise Woodson APRN [facility] [address] [place] [address] 09/29/2024 9:00 AM CARPET INSTALLER HELPER Virtual Visit [facility] Neurology [address] 3rd [place] [address] Randy Maradiaga DO [address] [place] [address] 10/09/2024 1:20 PM CARPET INSTALLER HELPER Office Visit [facility] Heart [facility] 6[address] [facility] [address] [place] [phone] Danna Cardenas PA-C 6405 [place] [address] 10/15/2024 11:00 AM CARPET INSTALLER HELPER [facility] [address] [place] [phone] Denise Woodson APRN BATTERY TESTER AND REPAIRER [address] [place], [place] 4560168 10/30/2024 4:00 PM CARPET INSTALLER HELPER Virtual Visit [facility] Vascular [facility] [address] [place] [phone] Lisa Zambrano MD [address] [place], [place] [address] 12/29/2024 12:45 PM CDT Office Visit [facility] Pediatric Specialty Clinic [address] [place] [phone] Fabi Coates MD [address] [place] [address] 12/29/2024 1:45 PM CDT Office Visit [facility]ty [facility] [address] [place] [address] [phone] Fabi Coates MD [address] [place] [address] 06/01/2025 11:15 AM CDT Appointment [facility] Imaging [address] [place] [phone] Robin Zepeda MD [address] [place] [address] 06/04/2025 11:00 AM CDT Office Visit [facility] Neurosurgery Clinic [address] 3rd [place] [phone] Robin Zepeda MD [address] [place] [address] [phone] Usha Simon APRN BATTERY TESTER AND REPAIRER [address] [place] [address] [phone] documented as of this encounter Visit Diagnoses Not on filedocumented in this encounter Additional Health Concerns Infection Onset Date Last Indicated Resolved Time Rule Out COVID-19 09/13/2024 09/13/2024 09/13/2024 12:31 PM CARPET INSTALLER HELPER Assessment Noted Time PHQ-9 Depression Total Score: 0 06/15/20 19 7:09 PM CDT documented as of this encounter Care Teams Line Controller Relationship Specialty Start Date End Date Yung Madrigal MD RETIRED PCP - Orthopaedics Orthopedics 08/26/12 01/20/24 Winston Villatoro OD [facility] [place] [address] [place] [address] PCP - Ophthalmology Ophthalmology 02/11/13 Clara Cornell MD [facility] [place] [address] [place] [address] PCP - General Internal Medicine 02/07/17 09/20/20 Denise Woodson APRN BATTERY TESTER AND REPAIRER [address] [place] [address] PCP - General Family Practice 09/21/20 Clara Cornell MD [address] [place] [address] Assigned PCP 01/17/17 07/16/20 Denise Woodson APRN BATTERY TESTER AND REPAIRER [address] [place] [address] Assigned PCP 07/17/20 Usha Simon APRN BATTERY TESTER AND REPAIRER [address] [place] [address] 133095 Nurse Practitioner Neurological Surgery 01/24/24 Dangelo Salinas MD [address] [place] [address] Neurology 01/27/24 Usha Simon APRN BATTERY TESTER AND REPAIRER [address] [place] [address] 894975 Assigned Neuroscience Provider 02/06/24 03/07/24 Anastasia Stearns, RN Lead Wood Stock Blank Handler 02/06/24 Germaine Lopez, CHW Community Health Worker Primary Care - CC 02/18/24 Robin Zepeda MD [address] 863565 Assigned Neuroscience Provider 03/08/24 05/07/24 Lias Zambrano MD [address] [facility] [address] [place] [address] Assigned Heart and Vascular Provider 05/08/24 07/07/24 Raul Hoyos MD 909 [facility] [place] [address] Assigned Neuroscience Provider 05/08/24 07/07/24 Joya Lira [facility] [address] [place] [address] Pharmacist Pharmacist 05/25/24 Joya Lira [facility] [address] [place] [address] Assigned MTM Pharmacist 06/08/24 Fabi Coates MD [address] [place] [address] 75 [place] [address] Genetics, Clinical 06/18/24 Robin Zepeda MD 909 [facility] [place] [address] Assigned Neuroscience Provider 07/08/24 08/07/24 Danna Cardenas PA-C 6405 [place] [address] Assigned Heart and Vascular Provider 07/08/24 Felicita Desai, RN Lead Wood Stock Blank Handler 07/14/24 07/28/24 Arthur Salas CANCER PROGRAM CONSULTANT [address] [place] [address] Assigned Behavioral Health Provider 08/08/24 Randy Maradiaga DO [address] [place] [address] Assigned Neuroscience Provider 08/08/24 documented as of this encounter
--- OUTSIDE RECORDS SUMMARY | 2024-09-20 19:23 | XMS_ITS | Encounter Summary ---
Author Organization [place] Address [address] [place] [address] Care Team Providers Care Apprentice Cook Name Role Phone Yung Madrigal MD Unavailable Unavailable Winston Villatoro OD Unavailable [phone] Denise Woodson APRN EQUIPMENT MAINTENANCE SUPERVISOR Unavailable [phone] Denise Woodson APRN EQUIPMENT MAINTENANCE SUPERVISOR Primary Care Provider Usha Simon APRN EQUIPMENT MAINTENANCE SUPERVISOR Unavailable [phone] Dangelo Salinas MD Unavailable Usha Simon APRN EQUIPMENT MAINTENANCE SUPERVISOR Unavailable Anastasia Stearns RN Unavailable Germaine Lopez CHW Unavailable Robin Zepeda MD Unavailable Lisa Zambrano MD Unavailable Raul Hoyos MD Unavailable Joya Lira [facility] Unavailable Joya Lira Joleen Unavailable Fabi Coates MD Unavailable [phone] Robin Zepeda MD Unavailable [phone] Danna Cardenas PA-C Unavailable Felicita Desai RN Unavailable Unavailab Arthur Rios Unavailable [phone] JefRandy oneill Unavailable + Reason for Visit * Reason Onset Date Comments Medication Request 04/20/2021 escitalopram (LEXAPRO) 10 MG tablet Encounter Details Date Type Department Care Team (Late st Contact Info) Description 04/20/2021 MyC Medical Advice [facility] [address] [place] [address] Denise Woodson APRN [facility] [address] [place] [address] Medication Request (escitalopram (LEXAPRO)... 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 Not on file [...] st Contact Info) Description 09/25/2024 11:00 AM CAT DOG OR OTHER PET GROOMER Office Visit [facility] [address] [place] [address] Denise Woodson APRN [facility] [address] [place], [place] [id number] 09/29/2024 9:00 AM CAT DOG OR OTHER PET GROOMER Virtual Visit [facility] Neurology Clinic [address] [address] Randy Maradiaga, DO 909 [place], [place] [address] 10/09/2024 1:20 PM CAT DOG OR OTHER PET GROOMER Office Visit [facility] [address] [facility] [address] [place] [phone] Danna Cardenas PA-C 6405 [place] [address] 10/15/2024 11:00 AM CAT DOG OR OTHER PET GROOMER [facility] [address] [place] [address] Denise Woodson APRN EQUIPMENT MAINTENANCE SUPERVISOR [address] [place], [place] 1222[address] 10/30/2024 4:00 PM CAT DOG OR OTHER PET GROOMER Virtual Visit [facility] Vascular Clinic [place] [address] [place] [phone] Lisa Zambrano MD [address] [place], [place] [address] 12/29/2024 12:45 PM CDT Office Visit [facility] [address] [place] [address] Ave Explorer [address] [phone] Fabi Coates MD [address] [place] [address] 96[address]45 12/29/2024 1:45 PM CDT Office Visit [facility] [address] [place] [address] Ave Explorer [address] [phone] Fabi Coates MD [address] [place] [id number] 06/01/2025 11:15 AM CDT Appointment [facility] Imaging [address] [facility] [address] [place] [address] Robin Zepeda MD [address] [place] [address] 06/04/2025 11:00 AM CDT Office Visit [facility] Neurosurgery Clinic [address] 3rd [place] [address] Robin Zepeda MD [address] [place] [address] Usha Simon APRN EQUIPMENT MAINTENANCE SUPERVISOR [address] [place] [address] documented as of this encounter Visit Diagnoses Diagnosis Generalized anxiety disorder Mild recurrent major depression (H) Major depressive disorder, recurrent episode, mild documented in this encounter Additional Health Concerns Infection Onset Date Last Indicated Resolved Time Rule Out COVID-19 09/13/2024 09/13/2024 09/13/2024 12:31 PM CAT DOG OR OTHER PET GROOMER Assessment Noted Time PHQ-9 Depression Total Score: 0 01/05/20 21 9:31 AM CDT documented as of this encounter Care Teams Apprentice Cook Relationship Specialty Start Date End Date Yung Madrigal MD RETIRED PCP - Orthopaedics Orthopedics 08/26/12 01/20/24 Winston Villatoro OD [facility] [place] [address] [place] [id number] PCP - Ophthalmology Ophthalmology 02/11/13 Denise Woodson APRN EQUIPMENT MAINTENANCE SUPERVISOR [address] [place] [address] PCP - General Family Practice 09/21/20 Denise Woodson APRN EQUIPMENT MAINTENANCE SUPERVISOR [address] [place] [address] Assigned PCP 07/17/20 Usha Simon APRN EQUIPMENT MAINTENANCE SUPERVISOR [address] [address] Nurse Practitioner Neurological Surgery 01/24/24 Dangelo Salinas MD [address] [place] [address] Neurology 01/27/24 Usha Simon APRN EQUIPMENT MAINTENANCE SUPERVISOR [address] [place] [address] Assigned Neuroscience Provider 02/06/24 03/07/24 Anastasia Stearns, RN Lead Event Designer 02/06/24 Germaine Lopez, W Community Health Worker Primary Care - CC 02/18/24 Robin Zepeda MD [address] [address] Assigned Neuroscience Provider 03/08/24 05/07/24 Lisa Zambrano MD [address] [place] [address] Assigned Heart and Vascular Provider 05/08/24 07/07/24 Raul Hoyos MD 9 [facility] [place] [address] Assigned Neuroscience Provider 05/08/24 07/07/24 Joya Lira [facility] [address] [place] [address] Pharmacist Pharmacist 05/25/24 Joya Lira [facility] [address] [place] [address] Assigned MTM Pharmacist 06/08/24 Fabi Coates MD [address] [place] [address] 75 [place] [address] Genetics, Clinical 06/18/24 Robin Zepeda MD [address] [place], [place] [address] [address] Assigned Neuroscience Provider 07/08/24 08/07/24 Danna Cardenas PA-C 6405 [place] [address] Assigned Heart and Vascular Provider 07/08/24 Felicita Desai RN Lead Event Designer 07/14/24 07/28/24 Arthur Salas, [facility] [address] [place] [address] Assigned Behavioral Health Provider 08/08/24 Randy Maradiaga DO [address] [place] [address] Assigned Neuroscience Provider 08/08/24 documented as of this encounter
--- OUTSIDE RECORDS SUMMARY | 2024-09-20 19:23 | XMS_ITS | Encounter Summary ---
Author Organization [place] Address [address] [place] [address] Care Team Providers Care Wire Setter Name Role Phone Winston Villatoro OD Unavailable [phone] Denise Woodson APRN TRENCH PIPE LAYER HELPER Unavailable [phone] Denise Woodson APRN TRENCH PIPE LAYER HELPER Primary Care Provider Usha Simon APRN TRENCH PIPE LAYER HELPER Unavailable + [phone] Dangelo Salinas MD Unavailable Anastasia Stearns RN Unavailable [phone] Germaine Lopez CHW Unavailable [phone] Robin Zepeda MD Unavailable [phone] Lisa Zambrano MD Unavailable Raul Hoyos MD Unavailable Joya Lira RP Unavailable [phone] Joya Lira RPH Unavailable [phone] Fabi Coates MD Unavailable [phone] Robin Zepeda MD Unavailable Dnana CardenasC Unavailable [phone] Felicita Desai RN Unavailable Unavailab Arthur Rios Unavailable [phone] Randy Maradiaga DO Unavailable + Reason for Visit * Reason Onset Date Comments Call Back 03/09/2024 Follow up appoin tment Encounter Details Date Type Department Care Team (Late st Contact Info) Description 03/09/2024 Telephone [facility] Neurology Clinic [address] 3rd [place] [address] Raul Hoyos MD [address] [place] [address] [id number] [place] [address] Call Back (Follow up appointment ) Social [...] How often do you attend scientology or faith serv ices? 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 Germaine's call back #[phone] or she states may call patient to schedule if appropriate Action Taken: Message routed to: [facility] Neurology Travel Screening: Not Applicable documented in this encounter Plan of Treatment Upcoming Encounters Date Type Department Care Team (Late st Contact Info) Description 09/25/2024 11:00 AM DECKHAND CRAB BOAT Office Visit [facility] [address] [place] [phone] Denise Woodson APRN [facility] [address] [place] [address] 09/29/2024 9:00 AM DECKHAND CRAB BOAT Virtual Visit [facility] Neurology Clinic [address] [address] Randy Maradiaga DO [address] [place] [address] 10/09/2024 1:20 PM DECKHAND CRAB BOAT Office Visit [facility] Heart [facility] [place] 6405 [facility] [address] [place] [phone] Danna Cardenas PA-C [address] [facility] [place] [facility] [place] [address] 10/15/2024 11:00 AM DECKHAND CRAB BOAT [facility] [address] [place] [phone] Chintan Denise, BARRERA TRENCH PIPE LAYER HELPER [address] [place], [place] [address] 10/30/2024 4:00 PM DECKHAND CRAB BOAT Virtual Visit [facility] Vascular Clinic [place] [address] [place] [phone] Lisa Zambrano MD [address] [place] [address] 12/29/2024 12:45 PM CDT Office Visit [facility] Pediatric Specialty Clinic [address] [place], [place] [address]e Explorer [address] [phone] Fabi Coates MD [address] [place] [address] 3[address]35 12/29/2024 1:45 PM CDT Office Visit [facility] Pediatric [facility]ty Clinic [address] [place], [place] [address]e Explorer [address] [phone] Fabi Coates MD [address] [place] [address] 06/01/2025 11:15 AM CDT Appointment [facility] Imaging [address] [facility] [address] [place] [address] Robin Zepeda MD [address] [place] [address] 06/04/2025 11:00 AM CDT Office Visit [facility] Neurosurgery [address] 3rd [place] [address] Robin Zepeda MD [address] [place] [address] 4[address] Usha Simon APRN CNP [address] [place] [address] 580185 documented as of this encounter Goals Goal Patient Goal Type Associated Problems Recent Progress Patient-Stated? Author I would like additional resources and support to manage my health and prevent future avoidable ED visits/hospital admissions Care Plan Increased risk of re-admission 40%( 4 3:02 PM DECKHAND CRAB BOAT) Anastasia Talamantes, RN Note: Barriers: diagnosis of multiple, chronic, complex medical conditions, provider availability - wait time to complete appointments, etc. Strengths: motivated, engaged in care coordination Patient expressed understanding of goal: yes Action steps to achieve this goal: 1. I will follow up with my providers as scheduled/recommended - Pulmonology: TBD - Mental Health weekly - PT, OT and [facility]N [facility], continuing through [facility] [place]: - PCP: 09/18/2024 & 10/15/2024. - Vascular [...] clinic with 24/7 after hours services available. Shoe Repairer will remain available as needed. documented as of this encounter Visit Diagnoses Not on filedocumented in this encounter Additional Health Concerns Active Problems Noted Date Diagnosed Date Increased risk of re-admission 02/18/2024 Infection Onset Date Last Indicated Resolved Time Rule Out COVID-19 09/13/2024 09/13/2024 09/13/2024 12:31 PM DECKHAND CRAB BOAT Assessment Noted Time PHQ-9 Depression Total Score: 16 024 3:27 PM CDT documented as of this encounter Care Teams Wire Setter Relationship Specialty Start Date End Date Winston Villatoro OD [facility] [address] [facility] [address] [place] [address] PCP - Ophthalmology Ophthalmology 02/11/13 Denise Woodson APRN TRENCH PIPE LAYER HELPER [address] [facility] [place] [address] PCP - General Family Practice 09/21/20 Denise Woodson APRN TRENCH PIPE LAYER HELPER [address] [place] [address] Assigned PCP 07/17/20 Usha Simon APRN TRENCH PIPE LAYER HELPER 909 [facility]2121[place], [place] [address] Nurse Practitioner Neurological Surgery 01/24/24 Dangelo Salinas MD [address] [place], [place] [id number] Neurology 01/27/24 Anastasia Stearns, RN Lead Shoe Repairer 02/06/24 Germaine LopezFORMERLY [facility] Community Health Worker Primary Care - CC 02/18/24 Robin Zepeda MD [address] [place] [address] Assigned Neuroscience Provider 03/08/24 05/07/24 Lisa Zambrano MD 6405 [facility] [place] [address] Assigned Heart and Vascular Provider 05/08/24 07/07/24 Raul Hoyos MD [address] [place] [address] Assigned Neuroscience Provider 05/08/24 07/07/24 Joya Lira [facility] [address] [place] [address] Pharmacist Pharmacist 05/25/24 Joya Lira [facility] [address] [place] [address] Assigned MTM Pharmacist 06/08/24 Fabi Coates MD [address] [place] [address] 75 [place] [address] Genetics, Clinical 06/18/24 Robin Zepeda MD [address] [place] [address] Assigned Neuroscience Provider 07/08/24 08/07/24 Danna Cardenas PA-C 6405 [place] [address] Assigned Heart and Vascular Provider 07/08/24 Felicita Desai, RN Lead Shoe Repairer 07/14/24 07/28/24 Arthur Salas, [facility] [address] [address] Assigned Behavioral Health Provider 08/08/24 Randy Maradiaga DO [address] [place] [address] 740585 Assigned Neuroscience Provider 08/08/24 documented as of this encounter
--- OUTSIDE RECORDS SUMMARY | 2024-09-20 19:23 | XMS_ITS | Encounter Summary ---
Author Organization [place] Address [address] [place] [address] Care Team Providers Care Analytical Scientist Name Role Phone Yung Madrigal MD Unavailable Unavailable Winston Villatoro OD Unavailable [phone] Denise Woodson APRN POND WORKER Unavailable [phone] Denise Woodson APRN POND WORKER Primary Care Provider Usha Simon APRN POND WORKER Unavailable [phone] Dangelo Salinas MD Unavailable Usha Simon APRN POND WORKER Unavailable Anastasia Stearns RN Unavailable [phone] Germaine Lopez CHW Unavailable Robin Zepeda MD Unavailable Lisa Zambrano MD Unavailable Raul Hoyos MD Unavailable Joya Lira [facility] Unavailable Joya Lira Joleen Unavailable Fabi Coates MD Unavailable [phone] Robin Zepeda MD Unavailable [phone] Danna Cardenas PA-C Unavailable [phone] Felicita Desai RN Unavailable Unavailab Arthur Rios Unavailable [phone] JefRandy oneill Unavailable + Encounter Details Date Type Department Care Team (Late st Contact Info) Description 06/13/2021 MyC Medical Advice [facility] [address] [place] [address] Denise Woodson APRN [facility] [address] [place] [address] Insomnia, unspecified type Social History [...] on file Legal Sex Female 4:05 AM APPLICATION INTEGRATION SPECIALIST Gender Identity Not on file Sexual Orientation Not on file 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 They stated they do not have a refill on file. Prescription approved per [facility] protocol. Mary Caraballo RN on 06/13/2021 at 5:18 PM documented in this encounter Plan of Treatment Upcoming Encounters Date Type Department Care Team (Late st Contact Info) Description 09/25/2024 11:00 AM APPLICATION INTEGRATION SPECIALIST Office Visit [facility] [address] [place] [address] Denise Woodson, PRECISION DEVICES INSPECTOR/TESTER POND WORKER [address] [place] [address] 09/29/2024 9:00 AM APPLICATION INTEGRATION SPECIALIST Virtual Visit [facility] Neurology [facility] 909 [facility] 3rd [place] [address] Randy Maradiaga, [address] [phone] 10/09/2024 1:20 PM APPLICATION INTEGRATION SPECIALIST Office Visit [facility] Heart [facility] 6405 [facility] [address] [place] [address] Danna Cardenas PA-C 6405 [place], [place] 349155 10/15/2024 11:00 AM APPLICATION INTEGRATION SPECIALIST Office Visit [facility] [address] [place] [address] Denise Woodson, BARRERA POND WORKER [address] [place] [address] 10/30/2024 4:00 PM APPLICATION INTEGRATION SPECIALIST Virtual Visit [facility] Vascular [facility] [address] [place] [phone] Lisa Zambrano MD [address] [place] [address] 12/29/2024 12:45 PM CDT Office Visit [facility] [address] [facility] [address],[place] [phone] Fabi Coates MD 420 [facility] 75 [place], [place] [address] 12/29/2024 1:45 PM CDT Office Visit [facility] 2450 [facility] Explorer [facility] 12th Fl[address],[place] [phone] Fabi Coates MD 420 [facility] 75 [place] [address] 06/01/2025 11:15 AM CDT Appointment [facility] Imaging [address] [place] [address] [place] [address] Robin Zepeda MD [address] [place] [address]16[address] 06/04/2025 11:00 AM CDT Office Visit [facility] Neurosurgery [address] 3rd [place] [phone] Robin Zepeda MD [address] [place] [address] Usha Simon APRN [address] [address] documented as of this encounter Visit Diagnoses Diagnosis Insomnia, unspecified type documented in this encounter Additional Health Concerns Infection Onset Date Last Indicated Resolved Time Rule Out COVID-19 09/13/2024 09/13/2024 09/13/2024 12:31 PM APPLICATION INTEGRATION SPECIALIST Assessment Noted Time PHQ-9 Depression Total Score: 0 01/05/20 21 9:31 AM CDT documented as of this encounter Care Teams Analytical Scientist Relationship Specialty Start Date End Date Yung Madrigal MD RETIRED PCP - Orthopaedics Orthopedics 08/26/12 01/20/24 Winston Villatoro OD [facility] [place] [address] [place] [address] [address] [place] [address] PCP - Ophthalmology Ophthalmology 02/11/13 Denise Woodson APRN POND WORKER [address] [place] [address] PCP - General Family Practice 09/21/20 Denise Woodson APRN POND WORKER [address] [place] [address] Assigned PCP 07/17/20 Usha Simon APRN POND WORKER [address] [place] [address] Nurse Practitioner Neurological Surgery 01/24/24 Dangelo Salinas MD [address] [facility] [address] [place] [address] Neurology 01/27/24 Usha Simon APRN POND WORKER [address] [address] Assigned Neuroscience Provider 02/06/24 03/07/24 Anastasia Stearns, RN Lead Precision Honer 02/06/24 Germaine Lopez, CHW Community Health Worker Primary Care - CC 02/18/24 Robin Zepeda MD [address] [address] Assigned Neuroscience Provider 03/08/24 05/07/24 Lisa Zambrano MD 6405 [facility] [address] [place] [address] Assigned Heart and Vascular Provider 05/08/24 07/07/24 Raul Hoyos MD 909 [facility] [place] [address] Assigned Neuroscience Provider 05/08/24 07/07/24 Joya Lira [facility] [address] [place] [address] Pharmacist Pharmacist 05/25/24 Joya Lira [facility] [address] [place] [address] Assigned MTM Pharmacist 06/08/24 Fabi Coates MD 420 [facility] 75 [place] [address] Genetics, Clinical 06/18/24 Robin Zepeda MD 909 [facility]121[place], [place] [address] Assigned Neuroscience Provider 07/08/24 08/07/24 Danna Cardenas PA-C 6405 [place] [address] Assigned Heart and Vascular Provider 07/08/24 Felicita Desai, RN Lead Precision Honer 07/14/24 07/28/24 Arthur Salas, [facility] [address] [place] [address] Assigned Behavioral Health Provider 08/08/24 Rnady Maradiaga DO [address] [place] [address] Assigned Neuroscience Provider 08/08/24 documented as of this encounter
--- OUTSIDE RECORDS SUMMARY | 2024-09-20 19:23 | XMS_ITS | Encounter Summary ---
Author Organization [facility] Address [address] [place] [address] Care Team Providers Care Finance Teacher Name Role Phone Winston Villatoro OD Unavailable [phone] Denise Woodson APRN PAINTER HELPER SPRAY Unavailable [phone] Denise Woodson APRN PAINTER HELPER SPRAY Primary Care Provider Usha Simon APRN PAINTER HELPER SPRAY Unavailable Dangelo Salinas MD Unavailable Usha Simon APRN PAINTER HELPER SPRAY Unavailable Anastasia Stearns RN Unavailable [phone] Germaine Lopez CH Unavailable [phone] Robin Zepeda MD Unavailable [phone] Lisa Zambrano MD Unavailable Raul Hoyos MD Unavailable Joya Lira RP Unavailable [phone] Joya Lira RPJoleen Unavailable Fabi Coates MD Unavailable [phone] Robin Zepeda MD Unavailable Danna Cardenas PA-C Unavailable [phone] Felicita Desai RN Unavailable Unavailab Arthur Rios [facility] Unavailable [phone] Randy Maradiaga DO Unavailable + Reason for Visit * Reason Onset Date Comments Appointment 01/23/2024 Referral-Stroke hospital follow up Encounter Details Date Type Department Care Team (Late st Contact Info) Description 01/23/2024 Telephone [facility] [address] 3rd [place] [address] None Appointment (Referral-Stroke hospital follow [...] on file Legal Sex Female 4:05 AM HOD CARRIER Gender Identity Not on file Sexual Orientation Not on file 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 Delisa Manuel Ur 5 Med Surg Diagnosis and/or Symptoms: Stroke Please review referral for Stroke as no HFU orders are entered for Stroke follow up. Patient discharged on 01/22/24 from [facility] and is now in Acute Rehab Unit. Action Taken: Message routed to[facility] Neurology Travel Screening: Not Applicable documented in this encounter Plan of Treatment Upcoming Encounters Date Type Department Care Team (Late st Contact Info) Description 09/25/2024 11:00 AM HOD CARRIER [facility] [address] [place] [phone] Denise Woodson APRN PAINTER HELPER SPRAY [address] [place], [place] [id number] 09/29/2024 9:00 AM HOD CARRIER Virtual Visit [facility] 9[address] [facility] 3rd [place] [phone] Randy Maradiaga, [address] [place] [address] 10/09/2024 1:20 PM HOD CARRIER Office Visit [facility] 6405 [facility] [address] [place] [phone] Danna Cardenas PA-C [address] [place] [address] 10/15/2024 11:00 AM HOD CARRIER Office Visit [facility] [address] [place] [phone] Denise Woodson APRN PAINTER HELPER SPRAY [address] [place] [address] 10/30/2024 4:00 PM HOD CARRIER Virtual Visit [facility] [place] [address] [place] [phone] Lisa Zambrano MD [address] [place] [address] 12/29/2024 12:45 PM CDT Office Visit [facility] [address] Explorer [facility] 12th Flr,[place] [phone] Fabi Coates MD 420 [facility] 75 [place] [address] 12/29/2024 1:45 PM CDT Office Visit [facility] [address] [facility] [address],[place] [phone] Fabi Coates MD 420 [facility] 75 [place] [address] 06/01/2025 11:15 AM CDT Appointment [facility] Imaging [address] [place] [phone] Robin Zepeda MD [address] [place] [address] 06/04/2025 11:00 AM CDT Office Visit [facility] [address] 3rd [place] [address] Robin Zepeda MD [address] [place] [address] Usha Simon APRN [address] [address] documented as of this encounter Visit Diagnoses Not on filedocumented in this encounter Additional Health Concerns Infection Onset Date Last Indicated Resolved Time Rule Out COVID-19 09/13/2024 09/13/2024 09/13/2024 12:31 PM HOD CARRIER Assessment Noted Time PHQ-9 Depression Total Score: 0 06/23/20 21 4:11 PM CDT documented as of this encounter Care Teams Finance Teacher Relationship Specialty Start Date End Date Winston Villatoro OD [facility] [place] [address] [facility] [address] [place] [address] PCP - Ophthalmology Ophthalmology 02/11/13 Denise Woodson APRN PAINTER HELPER SPRAY [address] [place], [place] [phone] PCP - General Family Practice 09/21/20 Denise Woodson APRN PAINTER HELPER SPRAY [address] [address] [place] [address] Assigned PCP 07/17/20 Usha Simon APRN PAINTER HELPER SPRAY [address] [id number] Nurse Practitioner Neurological Surgery 01/24/24 Dangelo Salinas MD [address] [facility] [address] [place], [place] [phone] Neurology 01/27/24 Usha Simon APRN PAINTER HELPER SPRAY [address] [phone] Assigned Neuroscience Provider 02/06/24 03/07/24 Anastasia Stearns, RN Lead Director Of Corporate Strategy 02/06/24 Germaine Lopez, W Community Health Worker Primary Care - CC 02/18/24 Robin Zepeda MD [address] [phone] Assigned Neuroscience Provider 03/08/24 05/07/24 Lisa Zambrano MD 6405 [facility] [address] [place] [id number] Assigned Heart and Vascular Provider 05/08/24 07/07/24 Raul Hoyos MD 909 [facility] [place] [address] Assigned Neuroscience Provider 05/08/24 07/07/24 Joya Lira [facility] [address] [place] [address] Pharmacist Pharmacist 05/25/24 Joya Lira [facility] [address] [place] [address] Assigned MTM Pharmacist 06/08/24 Fabi Coates MD [address] [place] [address] 75 [place] [address] Genetics, Clinical 06/18/24 Robin Zepeda MD 909 [facility]121[address] [place] [address] Assigned Neuroscience Provider 07/08/24 08/07/24 Danna Cardenas PA-C [address] [place] [address] Assigned Heart and Vascular Provider 07/08/24 Felicita Desai RN Lead Director Of Corporate Strategy 07/14/24 07/28/24 Arthur Salas, [facility] [address] [place] [address] Assigned Behavioral Health Provider 08/08/24 Randy Maradiaga DO 909 [place] [address] Assigned Neuroscience Provider 08/08/24 documented as of this encounter
--- OUTSIDE RECORDS SUMMARY | 2024-09-20 19:23 | XMS_ITS | Encounter Summary ---
Author Organization [facility] Address [address] [place] [address] Care Team Providers Care Plant Anatomist Name Role Phone Winston Villatoro OD Unavailable [phone] Denise Woodson APRN IMMIGRATION LAWYER Unavailable [phone] Denise Woodson APRN IMMIGRATION LAWYER Primary Care Provider Usha Simon APRN IMMIGRATION LAWYER Unavailable Dangelo Salinas MD Unavailable Usha Simon APRN IMMIGRATION LAWYER Unavailable Anastasia Stearns RN Unavailable Germaine Lopez CH Unavailable [phone] Robin Zepeda MD Unavailable Lisa Zambrano MD Unavailable Raul Hoyos MD Unavailable [phone] Joya Lira RP Unavailable [phone] Joya Lira RPJoleen Unavailable [phone] Fabi Coates MD Unavailable [phone] Robin Zepeda MD Unavailable Danna Cardenas PA-C Unavailable [phone] Felicita Desai RN Unavailable Unavailab Arthur Rios [facility] Unavailable [phone] Randy Maradiaga DO Unavailable + Encounter Details Date Type Department Care Team (Late st Contact Info) Description 01/29/2024 MyC Medical Advice [address] [phone] Danya Restrepo, WRAPPING MACHINE OPERATOR Social History Tobacco Use Types Packs/Day [...] on file Legal Sex Female 4:05 AM CAMPAIGN DEVELOPER Gender Identity Not on file Sexual Orientation Not on file 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 Not on file Not on file Not on file Not on file Not on file documented as of this encounter Plan of Treatment Upcoming Encounters Date Type Department Care Team (Late st Contact Info) Description 09/25/2024 11:00 AM CAMPAIGN DEVELOPER Office Visit [facility] [address] [place] [address] Denise Woodson APRN [facility] [address] [place], [place] [phone] 09/29/2024 9:00 AM CAMPAIGN DEVELOPER Virtual Visit [facility] Clinic [address] 3rd [place] [address] Randy Maradiaga, [address] [place] [address] 10/09/2024 1:20 PM CAMPAIGN DEVELOPER Office Visit [facility] [place] [phone] [place] [phone] Danna Cardenas PA-C [address] [facility] [place] [address] 10/15/2024 11:00 AM CAMPAIGN DEVELOPER Office Visit [facility] [address] [place] [phone] Denise Woodson, [place]A [facility] [address] [place] [address] 10/30/2024 4:00 PM CAMPAIGN DEVELOPER Virtual Visit [facility] Vascular [facility] [address] [place] [phone] Lisa Zambrano MD [address] [place] 284025 12/29/2024 12:45 PM CDT Office Visit [facility] [address] [place], [place] [address]e [address] [phone] Fabi Coates MD [address] [place] [address]36[address] 12/29/2024 1:45 PM CDT Office Visit [facility] [address] [place], [place] [address] Explorer [address] [phone] Fabi Coates MD [address] [place] [address] 9446[address] 06/01/2025 11:15 AM CDT Appointment [facility] Imaging [address] [facility] [address] [place] [phone] Robin Zepeda MD [address] [place] [address] [address] 06/04/2025 11:00 AM CDT Office Visit [facility] Neurosurgery [address] 3rd [place] [address] Robin Zepeda MD [address] [place] [address] Usha Simon APRN IMMIGRATION LAWYER [address] [place] [address] documented as of this encounter Visit Diagnoses Not on filedocumented in this encounter Additional Health Concerns Infection Onset Date Last Indicated Resolved Time Rule Out COVID-19 09/13/2024 09/13/2024 09/13/2024 12:31 PM CAMPAIGN DEVELOPER Assessment Noted Time PHQ-9 Depression Total Score: 0 06/23/20 21 4:11 PM CDT documented as of this encounter Care Teams Plant Anatomist Relationship Specialty Start Date End Date Winston Villatoro OD [place] [address] [facility] [address] [place] [address] PCP - Ophthalmology Ophthalmology 02/11/13 Denise Woodson APRN IMMIGRATION LAWYER [address] [place] [address] PCP - General Family Practice 09/21/20 Denise Woodson APRN IMMIGRATION LAWYER [address] [place] [address] Assigned PCP 07/17/20 Usha Simon APRN IMMIGRATION LAWYER [address] [place] [address] Nurse Practitioner Neurological Surgery 01/24/24 Dangelo Salinas MD [address] [place] [address] Neurology 01/27/24 Usha Simon APRN IMMIGRATION LAWYER [address] [address] Assigned Neuroscience Provider 02/06/24 03/07/24 Anastasia Stearns, RN Lead Installation Engineer 02/06/24 Germaine Lopez, W Community Health Worker Primary Care - CC 02/18/24 Robin Zepeda MD [address] [address] Assigned Neuroscience Provider 03/08/24 05/07/24 Lisa Zambrano MD [address] [place] [address] Assigned Heart and Vascular Provider 05/08/24 07/07/24 Raul Hoyos MD [address] [address] Assigned Neuroscience Provider 05/08/24 07/07/24 Joya Lira RPH [address] [place] [address] Pharmacist Pharmacist 05/25/24 Joya Lira RPH [address] [place] [address] Assigned MTM Pharmacist 06/08/24 Fabi Coates MD [address] [place] [address] 75 [place] [address] Genetics, Clinical 06/18/24 Robin Zepeda MD [address] [facility] [address] [place] [address] Assigned Neuroscience Provider 07/08/24 08/07/24 Danna Cardenas PA-C 6405 [place] [address] Assigned Heart and Vascular Provider 07/08/24 Felicita Desai RN Lead Installation Engineer 07/14/24 07/28/24 Arthur Salas [facility] [address] [place] [address] Assigned Behavioral Health Provider 08/08/24 Randy Maradiaga DO [address] [place] [address] Assigned Neuroscience Provider 08/08/24 documented as of this encounter
--- OUTSIDE RECORDS SUMMARY | 2024-09-20 19:23 | XMS_ITS | Encounter Summary ---
Author Organization [facility] Address [address] [place] [address] Care Team Providers Care Derrick Boat Lever Operator Name Role Phone Yung Madrigal MD Unavailable Unavailable Winston Villatoro OD Unavailable [phone] Denise Woodson APRN ENGINEERING GROUP MANAGER Unavailable [phone] Denise Woodson APRN ENGINEERING GROUP MANAGER Primary Care Provider Usha Simon APRN ENGINEERING GROUP MANAGER Unavailable [phone] Dangelo Salinas MD Unavailable Usha Simon APRN ENGINEERING GROUP MANAGER Unavailable Anastasia Stearns RN Unavailable [phone] Germaine Lopez CHW Unavailable Robin Zepeda MD Unavailable Lisa Zambrano MD Unavailable Raul Hoyos MD Unavailable Joya Lira [facility] Unavailable [phone] Joya Lira Joleen Unavailable Fabi Coates MD Unavailable [phone] Robin Zepeda MD Unavailable [phone] Danna Cardenas PA-C Unavailable [phone] Felicita Desai RN Unavailable Unavailab Arthur Rois Unavailable [phone] JefRandy oneill Unavailable + Reason for Visit * Reason Onset Date Comments URI 09/21/2020 Encounter Details Date Type Department Care Team (Late st Contact Info) Description 09/21/[address] 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 No / Unsure 09/21/2020 12:04 PM ACUTE DIALYSIS NURSE documented as of this encounter Miscellaneous Notes * Telephone Encounter - Kati Yang RN - 09/21/2020 10:54 AM CST Zdorovio message sent to patient. Kati Yang RN E DIALYSIS NURSE documented in this encounter Plan of Treatment Upcoming Encounters Date Type Department Care Team (Late st Contact Info) Description 09/25/2024 11:00 AM ACUTE DIALYSIS NURSE [facility] [address] [place] [address] Denise Woodson, [place] ENGINEERING GROUP MANAGER [address] [place] [address] 09/29/2024 9:00 AM ACUTE DIALYSIS NURSE Virtual [facility] Neurology [facility] 909 [facility] 3rd [place] [phone] Randy Maradiaga, [address] [address] 10/09/2024 1:20 PM ACUTE DIALYSIS NURSE Office [facility] Heart [facility] 6405 [facility] [address] [place] [phone] Danna Cardenas PA-C 6405 [place], [place] [address] 10/15/2024 11:00 AM ACUTE DIALYSIS NURSE Office Visit [facility] [address] [place] [phone] Denise Woodson, [place] ENGINEERING GROUP MANAGER [address] [place] [address] 10/30/2024 4:00 PM ACUTE DIALYSIS NURSE Virtual Visit [facility] V[facility] [place] [address] [place] [phone] Lisa Zambrano MD [address] [place] [address] 12/29/2024 12:45 PM CDT Office [facility] [address] [facility] 12th [address],[place] [address] Fabi Coates MD 420 [facility] 75 [place], [place] [address] 12/29/2024 1:45 PM CDT Office Visit [facility]ty [facility] 2450 [facility] Explorer [facility] [address],[place] [address] Fabi Coates MD 420 [facility] 75 [place] [address] 06/01/2025 11:15 AM CDT Appointment [facility] Imaging [address] [place] [address] Robin Zepeda MD [address] [place] [place] [address] 06/04/2025 11:00 AM CDT Office [facility] Neurosurgery [address] 3rd [place] [address] Robin Zepeda MD [address] [place] [place] [address] Usha Simon APRN [address] [address] documented as of this encounter Visit Diagnoses Not on filedocumented in this encounter Additional Health Concerns Infection Onset Date Last Indicated Resolved Time Rule Out COVID-19 09/13/2024 09/13/2024 09/13/2024 12:31 PM ACUTE DIALYSIS NURSE Assessment Noted Time PHQ-9 Depression Total Score: 0 06/15/20 19 7:09 PM CDT documented as of this encounter Care Teams Derrick Boat Lever Operator Relationship Specialty Start Date End Date Yung Madrigal MD RETIRED PCP - Orthopaedics Orthopedics 08/26/12 01/20/24 Winston Villatoro OD [facility] [place] [address] [place] [address] 95 [place] [address] PCP - Ophthalmology Ophthalmology 02/11/13 Denise Woodson APRN ENGINEERING GROUP MANAGER [address] [place] [address] PCP - General Family Practice 09/21/20 Denise Woodson APRN ENGINEERING GROUP MANAGER [address] [place] [address] Assigned PCP 07/17/20 Usha Simon APRN ENGINEERING GROUP MANAGER [address] [place] [address] Nurse Practitioner Neurological Surgery 01/24/24 Dangelo Salinas MD [address] [facility] [address] [place] [address] Neurology 01/27/24 Usha Simon APRN ENGINEERING GROUP MANAGER [address] [address] Assigned Neuroscience Provider 02/06/24 03/07/24 Anastasia Stearns, RN Lead Certified First Assistant 02/06/24 Germaine Lopez, CHW Community Health Worker Primary Care - CC 02/18/24 Robin Zepeda MD [address] [address] Assigned Neuroscience Provider 03/08/24 05/07/24 Lisa Zambrano MD 6[address] [facility] [address] [place] [address] Assigned Heart and Vascular Provider 05/08/24 07/07/24 Raul Hoyos MD 909 [facility] [place] [address] Assigned Neuroscience Provider 05/08/24 07/07/24 Joya Lira [facility] [address] [place] [address] Pharmacist Pharmacist 05/25/24 Joya Lira [facility] [address] [place] [address] Assigned MTM Pharmacist 06/08/24 Fabi Coates MD 420 [facility] 75 [place] [address] Genetics, Clinical 06/18/24 Robin Zepeda MD 909 [facility]121[place] [address] Assigned Neuroscience Provider 07/08/24 08/07/24 Danna Cardenas PA-C 6[address] [place] [address] Assigned Heart and Vascular Provider 07/08/24 Felicita Desai, RN Lead Certified First Assistant 07/14/24 07/28/24 Arthur Salas, [facility] [address] [place] [address] Assigned Behavioral Health Provider 08/08/24 Randy Maradiaga DO [address] [place] [address] Assigned Neuroscience Provider 08/08/24 documented as of this encounter
--- OUTSIDE RECORDS SUMMARY | 2024-09-20 19:23 | XMS_ITS | Encounter Summary ---
Author Organization [place] Address [address] [place] [address] Care Team Providers Care Archivist Nonprofit Foundation Name Role Phone Yung Madrigal MD Unavailable Unavailable Winston Villatoro OD Unavailable [phone] Denise Woodson APRN GENERAL ASSEMBLER Unavailable [phone] Denise Woodson APRN GENERAL ASSEMBLER Primary Care Provider Usha Simon APRN GENERAL ASSEMBLER Unavailable [phone] Dangelo Salinas MD Unavailable Usha Simon APRN GENERAL ASSEMBLER Unavailable Anastasia Stearns RN Unavailable Germaine Lopez CHW Unavailable Robin Zepeda MD Unavailable Lisa Zambrano MD Unavailable Raul Hoyos MD Unavailable Joya Lira [facility] Unavailable Joya Lira Joleen Unavailable Fabi Coates MD Unavailable [phone] Robin Zepeda MD Unavailable Danna Cardenas PA-C Unavailable Felicita Desai RN Unavailable Unavailab Arthur Rios UNIT MANAGER RN Unavailable [phone] Randy Maradiaga DO Unavailable + Reason for Visit * Reason Comments Medication Refill Encounter Details Date Type Department Care Team (Late st Contact Info) Description 06/11/2021 Refill [facility] [address] [facility] [address] [place] [address] Denise Woodson, BUSINESS ASSISTANT GENERAL ASSEMBLER [address] [facility] [place] [address] Medication Refill Social History Tobacco Use Types [...] file Legal Sex Female 4:05 AM COMMERCIAL KITCHEN SERVICE TECHNICIAN Gender Identity Not on file Sexual [...] Contact Info) Description 09/25/2024 11:00 AM COMMERCIAL KITCHEN SERVICE TECHNICIAN Office Visit [facility] [address] [place] [address] Denise Woodson, BARRERA GENERAL ASSEMBLER [address] [place] [address] 09/29/2024 9:00 AM COMMERCIAL KITCHEN SERVICE TECHNICIAN Virtual Visit [facility] Neurology [address] [address] Randy Maradiaga, [address] [place] [address] 10/09/2024 1:20 PM COMMERCIAL KITCHEN SERVICE TECHNICIAN Office Visit [facility] Heart [facility] [address] [facility] [address] [place] [phone] Danna Cardenas PA-C [address] [place] [address] 10/15/2024 11:00 AM COMMERCIAL KITCHEN SERVICE TECHNICIAN [facility] [address] [place] [phone] Chintan Denise, BUSINESS ASSISTANT GENERAL ASSEMBLER [address] [place], [place] [address] 10/30/2024 4:00 PM COMMERCIAL KITCHEN SERVICE TECHNICIAN Virtual Visit [facility] Vascular [facility] [address] [place] [phone] Lisa Zambrano MD [address] [place] [address] 12/29/2024 12:45 PM CDT Office Visit [facility]ty [facility] [address] [place] [address] [phone] Fabi Coates MD [address] [place] [address] 12/29/2024 1:45 PM CDT Office Visit [facility] [address] [place] [phone] Fabi Coates MD [address] [address] 06/01/2025 11:15 AM CDT Appointment [facility] [address] [facility] [address] [place] [address] Robin Zepeda MD [address] [place] [address] 06/04/2025 11:00 AM CDT Office Visit [facility] Neurosurgery [address] 3rd [place] [address] Robin Zepeda MD [address] [place] [address] Usha Simon APRN GENERAL ASSEMBLER [address] [place] [address] documented as of this encounter Visit Diagnoses Diagnosis Insomnia, unspecified type documented in this encounter Additional Health Concerns Infection Onset Date Last Indicated Resolved Time Rule Out COVID-19 09/13/2024 09/13/2024 09/13/2024 12:31 PM COMMERCIAL KITCHEN SERVICE TECHNICIAN Assessment Noted Time PHQ-9 Depression Total Score: 0 01/05/20 9:31 AM CDT documented as of this encounter Care Teams Archivist Nonprofit Foundation Relationship Specialty Start Date End Date Yung Madrigal MD RETIRED PCP - Orthopaedics Orthopedics 08/26/12 01/20/24 Winston Villatoro, AMELIE [facility] [place] [address] [facility] [address] [place] [address] PCP - Ophthalmology Ophthalmology 02/11/13 Denise Woodson APRN GENERAL ASSEMBLER [address] [place] [address] PCP - General Family Practice 09/21/20 Denise Woodson APRN GENERAL ASSEMBLER [address] [place] [address] Assigned PCP 07/17/20 Usha Simon APRN GENERAL ASSEMBLER [address] [address] Nurse Practitioner Neurological Surgery 01/24/24 Dangelo Salinas MD [address] [place] [address] Neurology 01/27/24 Usha Simon APRN GENERAL ASSEMBLER [address] [place] [address] Assigned Neuroscience Provider 02/06/24 03/07/24 Anastasia Stearns, RN Lead Director Of Group Sales 02/06/24 Germaine Lopze, W Community Health Worker Primary Care - CC 02/18/24 Robin Zepeda MD [address] [address] Assigned Neuroscience Provider 03/08/24 05/07/24 Lisa Zambrano MD [address] [place] [address] Assigned Heart and Vascular Provider 05/08/24 07/07/24 Raul Hoyos MD [address] [address] Assigned Neuroscience Provider 05/08/24 07/07/24 Joya Lira, [facility] [address] [place] [address] Pharmacist Pharmacist 05/25/24 Joya Lira [facility] [address] [place] [address] Assigned MTM Pharmacist 06/08/24 Fabi Coates MD [address] [place] [address] [address] [place] [address] Genetics, Clinical 06/18/24 Robin Zepeda MD [address] [facility] [id number] [place] [address] Assigned Neuroscience Provider 07/08/24 08/07/24 Danna Cardenas PA-C 6405 [place] [address] Assigned Heart and Vascular Provider 07/08/24 Felicita Desai, RN Lead Director Of Group Sales 07/14/24 07/28/24 Arthur Salas, [facility] [address] [place] [address] Assigned Behavioral Health Provider 08/08/24 Randy Maradiaga DO 909 [place], [place] [address] Assigned Neuroscience Provider 08/08/24 documented as of this encounter
--- OUTSIDE RECORDS SUMMARY | 2024-09-20 19:23 | XMS_ITS | Encounter Summary ---
Author Organization [place] Address [address] [place] [address] Care Team Providers Care Adult Education Manager Name Role Phone Timmy Perez MD Unavailable Unavailable Yung Madrigal MD Unavailable Unavailable Winston Villatoro OD Unavailable [phone] Apple Sykes MD Primary Care Provider Unavailab Westley Vera MD Unavailable [phone] GeorginaAlessandra Gómez APRN ASSISTED LIVING COORDINATOR Primary Car e Provider Serum, Claar Garland MD Primary Care Provider Serum, Clara Garland MD Unavailable [phone] Serum, Clara Garland MD Unavailable [phone] Denise Woodson APRN ASSISTED LIVING COORDINATOR Unavailable [phone] Denise Woodson APRN ASSISTED LIVING COORDINATOR Primary Care Provider Usha Simon APRN ASSISTED LIVING COORDINATOR Unavailable + [phone] Dangelo Salinas MD Unavailable Usha Simon APRN ASSISTED LIVING COORDINATOR Unavailable + [phone] Anastasia Stearns RN Unavailable [phone] Germaine Lopez CHW Unavailable [phone] Robin Zepeda MD Unavailable [phone] Lisa Zambrano MD Unavailable + [phone] Rual Hoyos MD Unavailable SorayaJoya [facility] Unavailable [phone] Soraya Joya [facility] Unavailable [phone] Fabi Coates MD Unavailable [phone] DuaneRobin MD Unavailable [phone] Danna Cardenas PA-C Unavailable [phone] Felicita Desai RN Unavailable Unavailab Arthur Rios CORRECTIONAL NURSE Unavailable [phone] Randy Maradiaga DO Unavailable + Reason for Visit * Reason Onset Date Comments MyChart Communication 05/30/2013 Encounter Details Date Type Department Care Team (Latest Contact Info) Description 05/30/2013 MyC Medical Advice [facility] in [address] [address] Apple Sykes MD MyChart Communication Social History Tobacco Use Types Packs/Day Years Used Date Smoking Tobacco: Never Smokeless Tobacco: Never Alcohol Use Standard Drinks/Week Comments Yes 0 (1 standard drink = 0.6 oz pur e alcohol) minimal Comments No Sex and Gender Information Value Date Recorded Sex Assigned at Not on file Legal Sex Female 4:05 AM TYPECASTING MACHINE OPERATOR Gender Identity Not on file Sexual Orientation Not on file 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 documented as of this encounter Plan of Treatment Upcoming Encounters Date Type Department Care Team (Late st Contact Info) Description 09/25/2024 11:00 AM TYPECASTING MACHINE OPERATOR Office Visit [facility] [address] [place] [address] Denise Woodson APRN [facility] [address] [place] [address] 09/29/2024 9:00 AM TYPECASTING MACHINE OPERATOR Virtual Visit [facility] Neurology Clinic [address] [place] [phone] Randy Maradiaga, DO 909 [place], [place] [address] 10/09/2024 1:20 PM TYPECASTING MACHINE OPERATOR Office Visit [facility] Heart [facility] [address] [facility] [address] [place] [phone] Danna Cardenas PA-C 6405 [place], [place] [address] 10/15/2024 11:00 AM TYPECASTING MACHINE OPERATOR Office Visit [facility] [address] [place] [phone] Denise Woodson, BARRERA ASSISTED LIVING COORDINATOR [address] [place], [place] [address] 10/30/2024 4:00 PM TYPECASTING MACHINE OPERATOR Virtual Visit [facility] Vascular [facility] [address] [place] [phone] Lisa Zambrano MD [address] [place], [place] [address] 12/29/2024 12:45 PM CDT Office Visit [facility] Pediatric Specialty Clinic [address] [place] [address] Ave [address] [phone] Fabi Coates MD [address] [place] [address] 12/29/2024 1:45 PM CDT Office Visit [facility]ty [facility] [address] [place] [address] Ave [address] [phone] Fabi Coates MD [address] [place] [address] [place] [address] 06/01/2025 11:15 AM CDT Appointment [facility] Imaging [address] [place] [address] [place] [address] Robin Zepeda MD [address] [place] [address] 06/04/2025 11:00 AM CDT Office Visit [facility] Neurosurgery Clinic [address] 3rd [place] [phone] Robin Zepeda MD [address] [place] [address] Usha Simon APRN [address] [address] documented as of this encounter Visit Diagnoses Not on filedocumented in this encounter Additional Health Concerns Infection Onset Date Last Indicated Resolved Time Rule Out COVID-19 09/13/2024 09/13/2024 09/13/2024 12:31 PM TYPECASTING MACHINE OPERATOR documented as of this encounter Care Teams Adult Education Manager Relationship Specialty Start Date End Date Timmy Perez MD PCP - Obstetrics/Gynecology 03/02/08 08/07/15 Yung Madrigal MD RETIRED PCP - Orthopaedics Orthopedics 08/26/12 01/20/24 Winston Villatoro OD [facility] [place] [address] [place] [address] PCP - Ophthalmology Ophthalmology 02/11/13 Apple Sykes MD [facility] [address] [place] [address] PCP - General Family Practice 05/04/13 10/25/16 Westley Bates MD XXX RETIRED XXX [address] [facility] [address] [place] [address] PCP - ENT Otolaryngology 05/14/13 07/28/18 GeorginaAlessandra Gómez APRN ASSISTED LIVING COORDINATOR [address] [facility] [place] [address] PCP - General Nurse Practitioner 10/26/16 02/06/17 Clara Cornell MD [facility]5 [facility] [place] [address] PCP - General Internal Medicine 02/07/17 09/20/20 Clara Cornell MD 8675 [place] [address] PCP - Assigned PCP 01/17/17 11/18/18 Denise Woodson APRN ASSISTED LIVING COORDINATOR [address] [facility] [place] [address] PCP - General Family Practice 09/21/20 Clara [place] MD 8675 [place] [address] Assigned PCP 01/17/17 07/16/20 Denise Woodson APRN ASSISTED LIVING COORDINATOR [address] [place] [address] Assigned PCP 07/17/20 Usha Simon APRN ASSISTED LIVING COORDINATOR [address] [place] [address] [address] Nurse Practitioner Neurological Surgery 01/24/24 Dangelo Salinas MD [address] [place] [address] Neurology 01/27/24 Usha Simon APRN ASSISTED LIVING COORDINATOR [address] [address] Assigned Neuroscience Provider 02/06/24 03/07/24 Anastasia Stearns, RN Lead Provider Network Mgr 02/06/24 Germaine Lopez, W Community Health Worker Primary Care - CC 02/18/24 Robin Zepeda MD [address] [address] Assigned Neuroscience Provider 03/08/24 05/07/24 Lisa Zambrano MD [address] [facility] [address] [place] [address] Assigned Heart and Vascular Provider 05/08/24 07/07/24 Raul Hoyos MD [address] [address] Assigned Neuroscience Provider 05/08/24 07/07/24 Joya Lira R[facility] [address] [place] [address] Pharmacist Pharmacist 05/25/24 Joya Lira RPH [address] [place] [address] Assigned MTM Pharmacist 06/08/24 Fabi Coates MD [address] [facility] 75 [place] [address] Genetics, Clinical 06/18/24 Robin Zepeda MD 909 [facility] MT5416[place] [address] Assigned Neuroscience Provider 07/08/24 08/07/24 Danna Cardenas PA-C 6405 [place] [address] Assigned Heart and Vascular Provider 07/08/24 Felicita Desai, RN Lead Provider Network Mgr 07/14/24 07/28/24 Arthur Salas, [facility] [address] [place] [address] Assigned Behavioral Health Provider 08/08/24 Randy Maradiaga DO [address] [place] [address] Assigned Neuroscience Provider 08/08/24 documented as of this encounter
--- OUTSIDE RECORDS SUMMARY | 2024-09-20 19:24 | XMS_ITS | Encounter Summary ---
Author Organization [place] Address [address] [place] [address]. [place] [address] Care Team Providers Care Pinion Polisher Name Role Phone Timmy Perez MD Unavailable Unavailable Encounter Details Date Type Department Care Team (Late st Contact Info) Description 01/17/2012 3:20 PM T [facility] in [address] [phone] Luis Walsh [address] [place] [address] Interface, MD [place] Social History Tobacco Use Types Packs/Day Years Used Date Smoking Tobacco: Never Passive Smoke Exposure: Never Smokeless Tobacco: Never Alcohol Use Standard Drinks/Week Comments Not Currently 0 (1 standard drink = 0.6 oz pur e alcohol) minimal Comments No Sex and Gender Information Value Date Recorded Sex Assigned at Not on file Legal Sex Female 4:05 AM HOSPICE/HOME HEALTH AIDE Gender Identity Not on file Sexual Orientation Not on file 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 Not on file Not on file Not on file Not on file Not on file documented as of this encounter Plan of Treatment Upcoming Encounters Date Type Department Care Team (Late st Contact Info) Description 09/25/2024 11:00 AM HOSPICE/HOME HEALTH AIDE Office Visit [facility] [address] [place] [address] Denise Woodson APRN [facility] [address] [place], [place] [address] 09/29/2024 9:00 AM HOSPICE/HOME HEALTH AIDE Virtual Visit [facility] Neurology [place] [address] [facility] 3rd [place] [phone] Randy Maradiaga, 909 [place], [place] [address] 10/09/2024 1:20 PM HOSPICE/HOME HEALTH AIDE Office Visit [facility] Heart [facility] 6[address] [facility] [address] [place] [phone] Danna Cardenas PA-C 6405 [place], [place] [address] 10/15/2024 11:00 AM HOSPICE/HOME HEALTH AIDE Office Visit [facility] [address] [place] [phone] Denise Woodson, BARRERA POT FILLER [address] [place] [address] 10/30/2024 4:00 PM HOSPICE/HOME HEALTH AIDE Virtual Visit [facility] Vascular [facility] [address] [place] [phone] Lisa Zambrano MD [address] [facility] [place], [place] [address] 12/29/2024 12:45 PM CDT Office Visit [facility]ty [facility] [address],[place] [phone] Fabi Coates MD 420 [facility] 75 [place], [place] [address] 12/29/2024 1:45 PM CDT [facility] [place] [facility] 2450 [facility] [address],[place] [address] Fabi Coates MD [address] [place] [address] [facility] 75 [place] [address] 06/01/2025 11:15 AM CDT Appointment M [facility] Imaging [address] [place] [address] [place] [phone] Robin Zepeda MD [address] [place] [address] 06/04/2025 11:00 AM CDT Office Visit [facility] Neurosurgery [facility] 909 [facility] 3rd [place] [phone] Robin Zepeda MD [address] [place] [address] Usha Simon, BARRERA POT FILLER [address] [address] documented as of this encounter Visit Diagnoses Not on filedocumented in this encounter Additional Health Concerns Infection Onset Date Last Indicated Resolved Time Rule Out COVID-19 09/13/2024 09/13/2024 09/13/2024 12:31 PM HOSPICE/HOME HEALTH AIDE documented as of this encounter Care Teams Pinion Polisher Relationship Specialty Start Date End Date Timmy Perez MD PCP - Obstetrics/Gynecology 03/02/08 1110/31 documented as of this encounter
--- OUTSIDE RECORDS SUMMARY | 2024-09-20 19:24 | XMS_ITS | Encounter Summary ---
Author Organization [facility] Address [address] [place] [address] Care Team Providers Care Fig Bar Machine Operator Name Role Phone Timmy Perez MD Unavailable Unavailable Yung Madrigal MD Unavailable Unavailable Winston Villatoro OD Unavailable +[phone] Apple Sykes MD Primary Care Provider Unavailab Westley Vera MD Unavailable +[phone] GeorginaAlessandra Gómez APRN LINE DANCER Primary Car e Provider Serum, Clara Garland MD Primary Care Provider Serum, Clara Garland MD Unavailable +[phone] Serum, Clara Garland MD Unavailable +[phone] Denise Woodson APRN LINE DANCER Unavailable +[phone] Denise Woodson APRN LINE DANCER Primary Care Provider Usha Simon APRN LINE DANCER Unavailable + [phone] Dangelo Salinas MD Unavailable Usha Simon APRN LINE DANCER Unavailable + [phone] Anastasia Stearns RN Unavailable +[phone] Germaine Lopez CHW Unavailable +[phone] Rboin Zepeda MD Unavailable +[phone] Lisa Zambrano MD Unavailable + [phone] Raul Hoyos MD Unavailable [phone] SorayaJoya [facility] Unavailable +[phone] Soraya Joya [facility] Unavailable +[phone] Fabi Coates MD Unavailable [phone] DuaneRobin MD Unavailable +[phone] Danna Cardenas PA-C Unavailable +[phone] Felicita Desai RN Unavailable Unavailab Arthur Rios HOTEL RESERVATION AGENT Unavailable +[phone] Randy Maradiaga DO Unavailable + Encounter Details Date Type Department Care Team (Late st Contact Info) Description 05/19/2013 MyC Medical Advice [facility] [place] Orthopedics [address] [place] [address] Yung Madrigal MD RETIRED Social History Tobacco Use Types Packs/Day Years Used Date Smoking Tobacco: Never Smokeless Tobacco: Never Alcohol Use Standard Drinks/Week Comments Yes 0 (1 standard drink = 0.6 oz pur e alcohol) minimal Comments No Sex and Gender Information Value Date Recorded Sex Assigned at Not on file Legal Sex Female 4:05 AM TRANSMISSION OPERATOR Gender Identity Not on file Sexual Orientation Not on file 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 documented as of this encounter Plan of Treatment Upcoming Encounters Date Type Department Care Team (Late st Contact Info) Description 09/25/2024 11:00 AM TRANSMISSION OPERATOR Office Visit [facility] [address] [place] [address] Denise Woodson APRN [facility] [address] [place] [address] 09/29/2024 9:00 AM TRANSMISSION OPERATOR Virtual Visit [facility] Neurology [address] [place] [phone] Randy Maradiaga, DO [address] [place], [place] [address] 10/09/2024 1:20 PM TRANSMISSION OPERATOR Office Visit [facility] Heart [facility] [address] [facility] [address] [place] [phone] Danna Cardenas PA-C [address] [place], [place] [address] 10/15/2024 11:00 AM TRANSMISSION OPERATOR [facility] [address] [place] [address] Denise Woodson APRN LINE DANCER [address] [place], [place] [address] 10/30/2024 4:00 PM TRANSMISSION OPERATOR Virtual Visit [facility] Vascular Clinic [place] [address] [place] [phone] Lisa Zambrano MD [address] [place], [place] [address] 12/29/2024 12:45 PM CDT Office Visit [facility] [address] [place] [address] Ave [address] [phone] Fabi Coates MD [address] [place] [address] 12/29/2024 1:45 PM CDT Office Visit [facility] [address] [place] [address] Ave [address] [phone] Fabi Coates MD [address] [place] [phone] 06/01/2025 11:15 AM CDT Appointment [facility] Imaging [address] [place] [phone] Robin Zepeda MD [address] [place] [address] 06/04/2025 11:00 AM CDT Office Visit [facility] Neurosurgery Clinic [address] 3rd [place] [phone] Robin Zepeda MD [address] [place] [address] Usha Simon APRN [address] [address] documented as of this encounter Visit Diagnoses Not on filedocumented in this encounter Additional Health Concerns Infection Onset Date Last Indicated Resolved Time Rule Out COVID-19 09/13/2024 09/13/2024 09/13/2024 12:31 PM TRANSMISSION OPERATOR documented as of this encounter Care Teams Fig Bar Machine Operator Relationship Specialty Start Date End Date Timmy Perez MD PCP - Obstetrics/Gynecology 03/02/08 08/07/15 Yung Madrigal MD RETIRED PCP - Orthopaedics Orthopedics 08/26/12 01/20/24 Winston Villatoro OD [facility] [place] [address] [place] [address] PCP - Ophthalmology Ophthalmology 02/11/13 Apple Sykes MD [facility] [place] [address] [place] [address] PCP - General Family Practice 05/04/13 10/25/16 Westley Bates MD XXX RETIRED XXX 701 [facility] 95 [place] [address] PCP - ENT Otolaryngology 05/14/13 07/28/18 [facility] [place])-Alessandra Gómez APRN LINE DANCER [address] [facility] [place] [address] PCP - General Nurse Practitioner 10/26/16 02/06/17 Clara Cornell MD [address] [facility] [place] [address] PCP - General Internal Medicine 02/07/17 09/20/20 Clara Cornell MD [address] [place] [address] PCP - Assigned PCP 01/17/17 11/18/18 Denise Woodson APRN LINE DANCER [address] [facility] [address] PCP - General Family Practice 09/21/20 Clara Cornell MD [address] [place] [address] Assigned PCP 01/17/17 07/16/20 Denise Woodson APRN LINE DANCER [address] [place] [address] Assigned PCP 07/17/20 Usha Simon APRN LINE DANCER 909 [facility], [place] [address] Nurse Practitioner Neurological Surgery 01/24/24 Dangelo Salinas MD [address] [place], [place] [phone] Neurology 01/27/24 Usha Simon APRN LINE DANCER [address] [address] Assigned Neuroscience Provider 02/06/24 03/07/24 Anastasia Stearns, RN Lead Lamination Machine Operator 02/06/24 Germaine Lopez, W Community Health Worker Primary Care - CC 02/18/24 Robin Zepeda MD [address] [address] Assigned Neuroscience Provider 03/08/24 05/07/24 Lisa Zambrano MD [address] [facility] [address] [place] [address] Assigned Heart and Vascular Provider 05/08/24 07/07/24 Raul Hoyos MD [address] [address] Assigned Neuroscience Provider 05/08/24 07/07/24 Joya Lira RPH [address] [place] [address] Pharmacist Pharmacist 05/25/24 Joya Lira RPH [address] [place] [address] Assigned MTM Pharmacist 06/08/24 Fabi Coates MD [address] [place] [address] 75 [place] [address] Genetics, Clinical 06/18/24 Robin Zepeda MD 909 [facility] [id number] [place] [address] Assigned Neuroscience Provider 07/08/24 08/07/24 Danna Cardenas PA-C [address] [place] [address] Assigned Heart and Vascular Provider 07/08/24 Felicita Desai, GEMA Lead Lamination Machine Operator 07/14/24 07/28/24 Arthur Salas, [facility] [address] [place] [address] Assigned Behavioral Health Provider 08/08/24 Randy Maradiaga DO [address] [place] [address] Assigned Neuroscience Provider 08/08/24 documented as of this encounter
--- OUTSIDE RECORDS SUMMARY | 2024-09-20 19:24 | XMS_ITS | Encounter Summary ---
Author Organization [facility] Address [address] [place] [address] Care Team Providers Care Hydro Operator Name Role Phone Timmy Perez MD Unavailable Unavailable Yung Madrigal MD Unavailable Unavailable Frw, None Primary Care Provider Unavailabl e Winston Villatoro OD Unavailable [phone] Apple Sykes MD Primary Care Provider Unavailab Westley Vera MD Unavailable [phone] Georgina-Alessandra Gómez APRN NOVELTY CANDY MAKER Primary Car e Provider Serum, Clara Garland MD Primary Care Provider Serum, Clara Garland MD Unavailable [phone] Serum, Clara Garland MD Unavailable [phone] Denise Woodson APRN NOVELTY CANDY MAKER Unavailable [phone] Denise Woodson APRN NOVELTY CANDY MAKER Primary Care Provider Usha Simon APRN NOVELTY CANDY MAKER Unavailable + [phone] Dangelo Salinas MD Unavailable Usha Simon APRN NOVELTY CANDY MAKER Unavailable + [phone] Anastasia Stearns RN Unavailable +[phone] Germaine Lopez CHW Unavailable +[phone] Robin Zepeda MD Unavailable +[phone] Lisa Zambrano MD Unavailable [phone] Raul Hoyos MD Unavailable Soraya Joya [facility] Unavailable +[phone] Soraya Joya [facility] Unavailable +[phone] Fabi Coates MD Unavailable [phone] Robin Zepeda MD Unavailable [phone] Danna Cardenas PA-C Unavailable +[phone] Felicita Desai RN Unavailable Unavailab Arthur Rios EXTENSION SPECIALIST Unavailable +[phone] Randy Maradiaga DO Unavailable + Encounter Details Date Type Department Care Team (Late st Contact Info) Description 01/31/2006 [facility] [place] BILINGUAL TRAINER [address] [place] [address] Timmy Perez MD Social History Tobacco Use Types Packs/Day Years Used Date Smoking Tobacco: Never Passive Smoke Exposure: Never Smokeless Tobacco: Never Alcohol Use Standard Drinks/Week Comments Not Currently 0 (1 standard drink = 0.6 oz pur e alcohol) minimal Comments No Sex and Gender Information Value Date Recorded Sex Assigned at Not on file Legal Sex Female 4:05 AM ZONING TECHNICIAN Gender Identity Not on file Sexual Orientation Not on file 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 Neurology Clinic [address] 3rd [place] [phone] Randy Maradiaga, [address] [address] 10/09/2024 1:20 PM ZONING TECHNICIAN Office [facility] Heart [facility] 6[address] [facility] [address] [place] [phone] Danna Cardenas PA-C 6405 [place] [address] 10/15/2024 11:00 AM ZONING TECHNICIAN Office Visit [facility] [address] [place] [phone] Denise Woodson, BARRERA NOVELTY CANDY MAKER [address] [place], [place] [address] 10/30/2024 4:00 PM ZONING TECHNICIAN Virtual Visit [facility] Vascular [facility] [address] [place] [address] Lisa Zambrano MD [address] [place] [address] 12/29/2024 12:45 PM CDT Office Visit [facility] [address] [place] [address] Ave [address] [phone] Fabi Coates MD [address] [place] [address] 75 [place], [place] [address] 12/29/2024 1:45 PM CDT Office Visit [facility] [address] [place] [address] Ave [address] [phone] Fabi Coates MD [address] [facility] 75 [place] [address] 06/01/2025 11:15 AM CDT Appointment [facility] Imaging [address] [place] [phone] Robin Zepeda MD [address] [place] [address] 06/04/2025 11:00 AM CDT Office Visit [facility] Neurosurgery Clinic [address] 3rd [place] [address] Robin Zepeda MD [address] [place] [address] Usha Simon APRN [address] [address] documented as of this encounter Visit Diagnoses Not on filedocumented in this encounter Additional Health Concerns Infection Onset Date Last Indicated Resolved Time Rule Out COVID-19 09/13/2024 09/13/2024 09/13/2024 12:31 PM ZONING TECHNICIAN documented as of this encounter Care Teams Hydro Operator Relationship Specialty Start Date End Date Timmy Perez MD PCP - Obstetrics/Gynecology 03/02/08 08/07/15 Yung Madrigal MD RETIRED PCP - Orthopaedics Orthopedics 08/26/12 01/20/24 Frw, None PCP - General Family Practice 08/26/12 05/03/13 Winston Villatoro OD [facility] [place] [address] [place] [address] PCP - Ophthalmology Ophthalmology 02/11/13 Apple Sykes MD [facility] [place] [address] [place] [address] PCP - General Family Practice 05/04/13 10/25/16 Westley Bates MD XXX RETIRED XXX [address] [place] [address] PCP - ENT Otolaryngology 05/14/13 07/28/18 Alessandra Cabrales APRN NOVELTY CANDY MAKER [address] [facility] [place] [address] PCP - General Nurse Practitioner 10/26/16 02/06/17 Clara Cornell MD [address] [facility] [place] [address] PCP - General Internal Medicine 02/07/17 09/20/20 Clara Cornell MD [address]75 [place] [address] PCP - Assigned PCP 01/17/17 11/18/18 Denise Woodson APRN NOVELTY CANDY MAKER [address] [place] [address] PCP - General Family Practice 09/21/20 Clara [place] MD [address] [facility] [place] [address] Assigned PCP 01/17/17 07/16/20 Denise Woodson APRN NOVELTY CANDY MAKER [address] [place] [address] Assigned PCP 07/17/20 Usha Simon APRN NOVELTY CANDY MAKER [address] [address] Nurse Practitioner Neurological Surgery 01/24/24 Dangelo Salinas MD [address] [place] [address] Neurology 01/27/24 Usha Simon APRN NOVELTY CANDY MAKER [address] [address] Assigned Neuroscience Provider 02/06/24 03/07/24 Anastasia Stearns, RN Lead Natural Gas Technician 02/06/24 Germaine Lopez, [facility] Community Health Worker Primary Care - CC 02/18/24 Robin Zepeda MD [address] [address] Assigned Neuroscience Provider 03/08/24 05/07/24 Lisa Zambrano MD [address] [place] [address] Assigned Heart and Vascular Provider 05/08/24 07/07/24 Raul Hoyos MD [address] [address] Assigned Neuroscience Provider 05/08/24 07/07/24 Joya Lira [facility] [address] [place], [place] [phone] Pharmacist Pharmacist 05/25/24 Joya Lira [facility] [address] [place] [address] Assigned MTM Pharmacist 06/08/24 Fabi Coates MD [address] [facility] SE [facility] 75 [place], [place] [address] Genetics, Clinical 06/18/24 Robin Zepeda MD 909 [facility] [id number] [place], [place] [address] Assigned Neuroscience Provider 07/08/24 08/07/24 Danna Cardenas PA-C 6405 [place] [address] Assigned Heart and Vascular Provider 07/08/24 Felicita Desai, GEMA Lead Natural Gas Technician 07/14/24 07/28/24 Arthur Salas [facility] [address] [place] [address] Assigned Behavioral Health Provider 08/08/24 Randy Maradiaga DO [address] [place] [address] Assigned Neuroscience Provider 08/08/24 documented as of this encounter
--- OUTSIDE RECORDS SUMMARY | 2024-09-20 19:24 | XMS_ITS | Encounter Summary ---
Author Organization [facility] Address [address] [place] [address] Care Team Providers Care Aerologist Name Role Phone Darius Shaw M.D. Primary Care Provider [phone] Reason for Referral * Outpatient (Routine) - Authorized Specialty Diagnoses / Procedures Referred By Contac t Referred To Contact Diagnoses Screening Mammogram Breast Cancer Procedures BI Breast Screening Bilateral with Tomosynthesis Darius Shaw M.D. [address] [place] [phone] Phone: tel: fax: [facility] Referral ID Status Reason Start Date Expiration Date V isits Requested Visits Authorized [id number] Authorized 08/19/2024 08/19/2025 1 1 CERTIFIED POWERPLANT MECHANIC Encounter Details Date Type Department Care Team (Late st Contact Info) Description 08/19/2024 Orders Only [facility] PCP [facility] MNT Darius Shaw M.D. [address] [place] [phone] Screening Mammogram Breast Cancer Social History [...] week 01/10/2023 How often do you attend spiritism or voodoo serv ices? Never 01/10/2023 Do you belong [...] Answer Date Recorded PHQ-2 Score 3 01/10/2023 [facility] [place] [facility] Occupat ional Health - Occupational Stress [...] AM CDT Legal Sex Female 8:24 AM FAA CERTIFIED POWERPLANT MECHANIC Gender Identity Female 02/11/2018 8:36 AM CDT [...] documented as of this encounter Care Teams Aerologist Relationship Specialty Start Date End Date Darius Shaw M.D. [address] [place] [phone] PCP - General Family Medicine 09/27/22 documented as of this encounter
--- OUTSIDE RECORDS SUMMARY | 2024-09-20 19:24 | XMS_ITS | Encounter Summary ---
Author Organization [facility] Address [address] [place] [address] Care Team Providers Care Sample Grader Name Role Phone Timmy Perez MD Unavailable Unavailable Yung Madrigal MD Unavailable Unavailable Frw, None Primary Care Provider Unavailabl e Winston Villatoro OD Unavailable [phone] Apple Sykes MD Primary Care Provider Unavailab Westley Vera MD Unavailable [phone] Georgina-Alessandra Gómez APRN REGIONAL DIRECTOR OF FINANCE Primary Car e Provider Serum, Clara Garland MD Primary Care Provider Serum, Clara Garland MD Unavailable [phone] Serum, Clara Garland MD Unavailable +[phone] Denise Woodson APRN REGIONAL DIRECTOR OF FINANCE Unavailable +[phone] Denise Woodson APRN REGIONAL DIRECTOR OF FINANCE Primary Care Provider Usha Simon APRN REGIONAL DIRECTOR OF FINANCE Unavailable + [phone] Dangelo Salinas MD Unavailable Usha Simon APRN REGIONAL DIRECTOR OF FINANCE Unavailable + [phone] Anastasia Stearns RN Unavailable +[phone] Germaine Lopez CHW Unavailable +[phone] Robin Zepeda MD Unavailable +[phone] Lisa Zambrano MD Unavailable [phone] Raul Hoyos MD Unavailable Soraya Joya [facility] Unavailable +[phone] Joya Lira [facility] Unavailable +[phone] Fabi Coates MD Unavailable [phone] Robin Zepeda MD Unavailable +[phone] Danna Cardenas PA-C Unavailable +[phone] Felicita Desai RN Unavailable Unavailab gabino Arthur Salas MANAGER UNDERWRITING Unavailable +[phone] Randy Maradiaga DO Unavailable + Encounter Details Date Type Department Care Team (Late st Contact Info) Description 01/30/2006 [facility] [place] Inpatient Dept [address] [place] [address] Frw, Inpatient Provider Social History Tobacco Use Types Packs/Day Years Used Date Smoking Tobacco: Never Passive Smoke Exposure: Never Smokeless Tobacco: Never Alcohol Use Standard Drinks/Week Comments Not Currently 0 (1 standard drink = 0.6 oz pur e alcohol) minimal Comments No Sex and Gender Information Value Date Recorded Sex Assigned at Not on file Legal Sex Female 4:05 AM HAT BRIM CURLER Gender Identity Not on file Sexual Orientation [...] pain. PROCEDURE: TOTAL VAGINAL HYSTERECTOMY. SURGEON: Chris UTILITY SALES AND SERVICE MANAGER: Radha ANESTHESIA: Spinal ESTIMATED BLOOD LOSS: [...] st Contact Info) Description 09/25/2024 11:00 AM HAT BRIM CURLER Office Visit [facility] [address] [place] [address] Denise Woodson APRN [facility] [address] [place], [place] 1243[address] 09/29/2024 9:00 AM HAT BRIM CURLER Virtual Visit [facility] Neurology [place] 575839 [facility] 3rd [place] [address] Randy Maradiaga, [address] [place] [address] 10/09/2024 1:20 PM HAT BRIM CURLER Office Visit [facility] Heart [facility] 6405 [facility] [address] [place] [address] Danna Cardenas PA-C 6405 [place], [place] 646895 10/15/2024 11:00 AM HAT BRIM CURLER Office Visit [facility] [address] [place] [phone] Denise Woodson APRN REGIONAL DIRECTOR OF FINANCE [address] [place], [place] 8056568 10/30/2024 4:00 PM HAT BRIM CURLER Virtual Visit [facility] Vascular [facility] [address] [place] [phone] Lisa Zambrano MD [address] [place] [address] 12/29/2024 12:45 PM CDT Office Visit [facility] [address] [place] [address] Ave [address] [phone] Fabi Coates MD 420 [facility] 75 [place], [place] 5625[address] 12/29/2024 1:45 PM CDT Office Visit [facility] [address] [place] [address] Ave [facility] [address] [phone] Fabi Coates MD [address] [facility] 75 [place] [address] 06/01/2025 11:15 AM CDT Appointment [facility] Imaging [address] [facility] [address] [place] [phone] Robin Zepeda MD [address] [place] [address] 06/04/2025 11:00 AM CDT Office Visit [facility] [address] 3rd [place] [phone] Robin Zepeda MD [address] [place] [address] 930295 Usha Simon APRN [address] [address] documented as of this encounter Visit Diagnoses Not on filedocumented in this encounter Additional Health Concerns Infection Onset Date Last Indicated Resolved Time Rule Out COVID-19 09/13/2024 09/13/2024 09/13/2024 12:31 PM HAT BRIM CURLER documented as of this encounter Care Teams Sample Grader Relationship Specialty Start Date End Date Timmy Perez MD PCP - Obstetrics/Gynecology 03/02/08 08/07/15 Yung Madrigal MD RETIRED PCP - Orthopaedics Orthopedics 08/26/12 01/20/24 Frw, None PCP - General Family Practice 08/26/12 05/03/13 Winston Villatoro OD [facility] [place] [address] [place] [address] PCP - Ophthalmology Ophthalmology 02/11/13 Apple Sykes MD [facility] [place] [address] [place] [address] PCP - General Family Practice 05/04/13 10/25/16 Westley Bates MD XXX RETIRED XXX [address] [facility] [address] [address] [place] [address] PCP - ENT Otolaryngology 05/14/13 07/28/18 [facility]N REGIONAL DIRECTOR OF FINANCE [address] [facility] [place] [address] PCP - General Nurse Practitioner 10/26/16 02/06/17 Clara Cornell MD [address] [facility] [place] [address] PCP - General Internal Medicine 02/07/17 09/20/20 Clara Cornell MD 8675 [place] [address] PCP - Assigned PCP 01/17/17 11/18/18 Denise Woodson APRN REGIONAL DIRECTOR OF FINANCE [address] [place] [address] PCP - General Family Practice 09/21/20 Clara Cornell MD [address] [place] [address] Assigned PCP 01/17/17 07/16/20 Denise Woodson APRN REGIONAL DIRECTOR OF FINANCE [address] [place] [address] Assigned PCP 07/17/20 Usha Simon APRN REGIONAL DIRECTOR OF FINANCE [address] [address] Nurse Practitioner Neurological Surgery 01/24/24 Dangelo Salinas MD [address] [place] [address] Neurology 01/27/24 Usha Simon APRN REGIONAL DIRECTOR OF FINANCE [address] [address] Assigned Neuroscience Provider 02/06/24 03/07/24 Anastasia Stearns, RN Lead Immunology Specialist 02/06/24 Germaine Lopez, W Community Health Worker Primary Care - CC 02/18/24 Robin Zepeda MD [address] [address] Assigned Neuroscience Provider 03/08/24 05/07/24 Lisa Zambrano MD [address] [place] 789985 Assigned Heart and Vascular Provider 05/08/24 07/07/24 Raul Hoyos MD [address] 449[address] Assigned Neuroscience Provider 05/08/24 07/07/24 Joya Lira [facility] [address] [place], [place] [phone] Pharmacist Pharmacist 05/25/24 Joya Lira [facility] [address] [place] [address] Assigned MTM Pharmacist 06/08/24 Fabi Coates MD [address] [address] [facility] [address] [place], [place] 392375 Genetics, Clinical 06/18/24 Robin Zepeda MD [address] [facility] [address] [place], [place] 281255 Assigned Neuroscience Provider 07/08/24 08/07/24 Danna Cardenas PA-C 6405 [place] [address] Assigned Heart and Vascular Provider 07/08/24 Felicita Desai, RN Lead Immunology Specialist 07/14/24 07/28/24 Arthur Salas [facility] [address] [place] [address] Assigned Behavioral Health Provider 08/08/24 Randy Maradiaga DO [address] [place] [address] Assigned Neuroscience Provider 08/08/24 documented as of this encounter
--- OUTSIDE RECORDS SUMMARY | 2024-09-20 19:24 | XMS_ITS | Encounter Summary ---
Author Organization [facility] Address [address] [place] [address] Care Team Providers Care Pump Attendant Name Role Phone Timmy Perez MD Unavailable Unavailable Yung Madrigal MD Unavailable Unavailable Winston Villatoro OD Unavailable [phone] Apple Sykes MD Primary Care Provider Unavailab Westley Vera MD Unavailable GeorginaAlessandra Gómez APRN MATERIALS RECYCLER Primary Car e Provider Serum, Clara Garland MD Primary Care Provider Serum, Clara Garland MD Unavailable [phone] Serum, Clara Garland MD Unavailable [phone] Denise Woodson APRN MATERIALS RECYCLER Unavailable +[phone] Denise Woodson APRN MATERIALS RECYCLER Primary Care Provider Usha Simon APRN MATERIALS RECYCLER Unavailable + [phone] Dangelo Salinas MD Unavailable Usha Simon APRN MATERIALS RECYCLER Unavailable + [phone] Anastasia Stearns RN Unavailable +[phone] Germaine Lopez CHW Unavailable +[phone] Robin Zepeda MD Unavailable +[phone] Lisa Zambrano MD Unavailable + [phone] Raul Hoyos MD Unavailable SorayaJoya [facility] Unavailable +[phone] Soraya Joya [facility] Unavailable +[phone] Fabi Coates MD Unavailable [phone] DuaneRobin MD Unavailable +[phone] Danna Cardenas PA-C Unavailable +[phone] Felicita Desai RN Unavailable Unavailab Arthur Rios GLEASON GEAR GENERATOR Unavailable +[phone] Randy Maradiaga DO Unavailable + Encounter Details Date Type Department Care Team (Late st Contact Info) Description 05/26/2013 MyC Medical Advice [facility] in [place] Orthopedics [address] [place] [address] Yung Madrigal MD RETIRED Social History Tobacco Use Types Packs/Day Years Used Date Smoking Tobacco: Never Smokeless Tobacco: Never Alcohol Use Standard Drinks/Week Comments Yes 0 (1 standard drink = 0.6 oz pur e alcohol) minimal Comments No Sex and Gender Information Value Date Recorded Sex Assigned at Not on file Legal Sex Female 4:05 AM HEALTH COORDINATOR Gender Identity Not on file Sexual Orientation Not on file 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 [address] [place] [address] Denise Woodson APRN [facility] [address] [place] [address] 09/29/2024 9:00 AM HEALTH COORDINATOR Virtual Visit [facility] Neurology [address] [place] [address] [place] [phone] Randy Maradiaga, DO 909 [place], [place] 314[address] 10/09/2024 1:20 PM HEALTH COORDINATOR Office Visit [facility] Heart [facility] 6405 [facility] [address] [place] [phone] Danna Cardenas PA-C 6405 [place], [place] 7[address] 10/15/2024 11:00 AM HEALTH COORDINATOR [facility] [address] [place] [address] Denise Woodson APRN MATERIALS RECYCLER [address] [place], [place] 1293768 10/30/2024 4:00 PM HEALTH COORDINATOR Virtual Visit [facility] Vascular Clinic [place] [address] [place] [phone] Lisa Zambrano MD [address] [place], [place] 8[address] 12/29/2024 12:45 PM CDT Office Visit [facility] [address] [place] [address] Ave Explorer [address] [phone] Fabi Coates MD [address] [place] [address] 460585 12/29/2024 1:45 PM CDT Office Visit [facility]ty Clinic [address] [place] [address] Ave Explorer [address] [phone] Fabi Coates MD [address] [place] [address] 06/01/2025 11:15 AM CDT Appointment [facility] Imaging [address] [place] [phone] Robin Zepeda MD [address] [place] [address] 06/04/2025 11:00 AM CDT Office Visit [facility] Neurosurgery Clinic [address] 3rd [place] [phone] Robin Zepeda MD [address] [place] [address] Usha Simon APRN [address] 614[address] documented as of this encounter Visit Diagnoses Not on filedocumented in this encounter Additional Health Concerns Infection Onset Date Last Indicated Resolved Time Rule Out COVID-19 09/13/2024 09/13/2024 09/13/2024 12:31 PM HEALTH COORDINATOR documented as of this encounter Care Teams Pump Attendant Relationship Specialty Start Date End Date Timmy Perez MD PCP - Obstetrics/Gynecology 03/02/08 08/07/15 Yung Madrigal MD RETIRED PCP - Orthopaedics Orthopedics 08/26/12 01/20/24 Winston Villatoro OD [facility] [place] [address] [place] [address] PCP - Ophthalmology Ophthalmology 02/11/13 Apple Sykes MD [facility] [place] [address] [place] [address] PCP - General Family Practice 05/04/13 10/25/16 Westley Bates MD XXX RETIRED XXX 701 [facility] 95 [place] [address] PCP - ENT Otolaryngology 05/14/13 07/28/18 [facility] Gómez APRN MATERIALS RECYCLER [address]305 [facility] [place] [address] PCP - General Nurse Practitioner 10/26/16 02/06/17 Clara Cornell MD [address] [facility] [place] [address] PCP - General Internal Medicine 02/07/17 09/20/20 Clara Cornell MD 8675 [place] [address] PCP - Assigned PCP 01/17/17 11/18/18 Denise Woodson APRN MATERIALS RECYCLER [address] [address] [place] [address] PCP - General Family Practice 09/21/20 Clara Cornell MD 8675 [place] [address] Assigned PCP 01/17/17 07/16/20 Denise Woodson APRN MATERIALS RECYCLER [address] [place] [address] Assigned PCP 07/17/20 Usha Simon APRN MATERIALS RECYCLER 909 [facility]2121[place], [place] [address] Nurse Practitioner Neurological Surgery 01/24/24 Dangelo Salinas MD [address] [place], [place] [phone] Neurology 01/27/24 Usha Simon APRN MATERIALS RECYCLER [address] [address] Assigned Neuroscience Provider 02/06/24 03/07/24 Anastasia Stearns, RN Lead Graining Press Operator 02/06/24 Germaine Lopez, W Community Health Worker Primary Care - CC 02/18/24 Robin Zepeda MD [address] [address] Assigned Neuroscience Provider 03/08/24 05/07/24 Lisa Zambrano MD [address] [facility] [address] [place] [address] Assigned Heart and Vascular Provider 05/08/24 07/07/24 Raul Hoyos MD [address] [address] Assigned Neuroscience Provider 05/08/24 07/07/24 Joya Lira [facility] [address] [place] [address] Pharmacist Pharmacist 05/25/24 Joya Lira [facility] [address] [place] [address] Assigned MTM Pharmacist 06/08/24 Fabi Caotes MD [address] [place] [address] 75 [place] [address] Genetics, Clinical 06/18/24 Robin Zepeda MD 909 [facility] FM6167KB [place] [address] Assigned Neuroscience Provider 07/08/24 08/07/24 Danna Cardenas PA-C 6405 [place] [address] Assigned Heart and Vascular Provider 07/08/24 Felicita Desai, GEMA Lead Graining Press Operator 07/14/24 07/28/24 Arthur Salas, [facility] [address] [place] [address] Assigned Behavioral Health Provider 08/08/24 Randy Maradiaga DO [address] [place] [address] Assigned Neuroscience Provider 08/08/24 documented as of this encounter
--- OUTSIDE RECORDS SUMMARY | 2024-09-20 19:24 | XMS_ITS | Encounter Summary ---
Author Organization [facility] Address [address] [place] [address] Care Team Providers Care Hunting Sales Leader Name Role Phone Timmy Perez MD Unavailable Unavailable Yung Madrigal MD Unavailable Unavailable Frw, None Primary Care Provider Unavailabl e Winston Villatoro OD Unavailable [phone] Apple Sykes MD Primary Care Provider Unavailab Westley Vera MD Unavailable [phone] Georgina-Alessandra Gómez APRN DIRECTOR NURSING SERVICE Primary Car e Provider Serum, Clara Garland MD Primary Care Provider Serum, Clara Garland MD Unavailable +[phone] Serum, Clara Garland MD Unavailable +[phone] Deinse Woodson APRN DIRECTOR NURSING SERVICE Unavailable +[phone] Denise Woodson APRN DIRECTOR NURSING SERVICE Primary Care Provider Usha Simon APRN DIRECTOR NURSING SERVICE Unavailable + [phone] Dangelo Salinas MD Unavailable Usha Simon APRN DIRECTOR NURSING SERVICE Unavailable + [phone] Anastasia Stearns RN Unavailable +[phone] Germaine Lopez CHW Unavailable +[phone] Robin Zepeda MD Unavailable +[phone] Lisa Zambrano MD Unavailable [phone] Raul Hoyos MD Unavailable Soraya Joya [facility] Unavailable +[phone] Soraya Joya [facility] Unavailable +[phone] Fabi Coates MD Unavailable [phone] Robin Zepeda MD Unavailable +[phone] Danna Cardenas PA-C Unavailable +[phone] Felicita Desai RN Unavailable Unavailab Arthur Rios [facility] Unavailable [phone] Randy Maradiaga DO Unavailable + Reason for Visit * Reason Onset Date Comments Medication Question 04/21/2013 Farhan Saez [facility] Encounter Details Date Type Department Care Team (Late st Contact Info) Description 04/21/2013 Telephone [facility] in [address] [address] Janna Rodriguez, supervisor front Question (Far[facility]) Social History Tobacco Use Types Packs/Day Years Used Date Smoking Tobacco: Never Smokeless Tobacco: Never Alcohol Use Standard Drinks/Week Comments Yes 0 (1 standard drink = 0.6 oz pur e alcohol) minimal Comments No Sex and Gender Information Value Date Recorded Sex Assigned at Not on file Legal Sex Female 4:05 AM BRUSH MAKER Gender Identity Not on file Sexual [...] st Contact Info) Description 09/25/2024 11:00 AM BRUSH MAKER Office Visit [facility] [address] [place] [phone] Denise Woodson APRN DIRECTOR NURSING SERVICE [address] [place], [place] 1984168 09/29/2024 9:00 AM BRUSH MAKER Virtual Visit [facility] Neurology [address] [place] [phone] Randy Maradiaga, [address] 899945 10/09/2024 1:20 PM BRUSH MAKER Office Visit [facility] Heart [facility] [place] 6405 [facility] [address] [place] [phone] Danna Cardenas PA-C 6405 [place], [place] 743785 10/15/2024 11:00 AM BRUSH MAKER Office Visit [facility] [address] [place] [phone] Denise Woodson APRN DIRECTOR NURSING SERVICE [address] [place], [place] 7300868 10/30/2024 4:00 PM BRUSH MAKER Virtual Visit [facility] Vascular Clinic [place] [address] [place] [phone] Lisa Zambrano MD [address] [place] 236195 12/29/2024 12:45 PM CDT Office Visit [facility] [address] [place] [address] Ave [address] [phone] Fabi Coates MD [address] [place] [address] 12/29/2024 1:45 PM CDT Office Visit [facility] [address] [place] [address] Ave [address] [phone] Fabi Coates MD [address] [place] [address] 06/01/2025 11:15 AM CDT Appointment [facility] [address] [facility] [address] [place] [phone] Robin Zepeda MD [address] [place] [address] 06/04/2025 11:00 AM CDT Office Visit [facility] Neurosurgery [address] [place] [address] Robin Zepeda MD [address] [place] [address] 971675 Usha Simon, ECOMMERCE MARKETING SPECIALIST DIRECTOR NURSING SERVICE 909 [facility] VM0860JW [place] [address] documented as of this encounter Visit Diagnoses Not on filedocumented in this encounter Additional Health Concerns Infection Onset Date Last Indicated Resolved Time Rule Out COVID-19 09/13/2024 09/13/2024 09/13/2024 12:31 PM BRUSH MAKER documented as of this encounter Care Teams Hunting Sales Leader Relationship Specialty Start Date End Date Timmy Perez MD PCP - Obstetrics/Gynecology 03/02/08 08/07/15 Yung Madrigal MD RETIRED PCP - Orthopaedics Orthopedics 08/26/12 01/20/24 Frw, None PCP - General Family Practice 08/26/12 05/03/13 Winston Villatoro OD [facility] [place] [address] [place] [address] PCP - Ophthalmology Ophthalmology 02/11/13 Apple Sykes MD [facility] [place] [address] [place] [address] PCP - General Family Practice 05/04/13 10/25/16 Westley Bates MD XXX RETIRED XXX [address] [place] [address] PCP - ENT Otolaryngology 05/14/13 07/28/18 Georgina-Alessandra Gómez APRN DIRECTOR NURSING SERVICE 3305 [facility] [place] [id number] PCP - General Nurse Practitioner 10/26/16 02/06/17 Clara Cornell MD 3305 [facility] [place] [id number] PCP - General Internal Medicine 02/07/17 09/20/20 Clara Cornell MD 8675 [place] [address] PCP - Assigned PCP 01/17/17 11/18/18 Denise Woodson APRN DIRECTOR NURSING SERVICE [address] [facility] [place] [address] PCP - General Family Practice 09/21/20 Clara Cornell MD 8675 [place] [address] Assigned PCP 01/17/17 07/16/20 Denise Woodson APRN DIRECTOR NURSING SERVICE [address] [facility] [place] [address] Assigned PCP 07/17/20 Usha Simon APRN DIRECTOR NURSING SERVICE [address] [address]36[address] Nurse Practitioner Neurological Surgery 01/24/24 Dangelo Salinas MD [address] [facility] [address] [address] Neurology 01/27/24 Usha Simon APRN DIRECTOR NURSING SERVICE [address] 815165 Assigned Neuroscience Provider 02/06/24 03/07/24 Anastasia Stearns, RN Lead Medical Technician Assistant 02/06/24 Germaine Lopez, CHW Community Health Worker Primary Care - CC 02/18/24 Robin Zepeda MD [address] [address] Assigned Neuroscience Provider 03/08/24 05/07/24 Lisa Zambrano MD 6405 [facility] [place] [address] Assigned Heart and Vascular Provider 05/08/24 07/07/24 Raul Hoyos MD [address] [place] [address] Assigned Neuroscience Provider 05/08/24 07/07/24 Joya Lira [facility] [address] [place] [address] Pharmacist Pharmacist 05/25/24 Joya Lira [facility] [address] [place] [address] Assigned MTM Pharmacist 06/08/24 Fabi Coates MD [address] [place] [address] 75 [place] [address] Genetics, Clinical 06/18/24 Robin Zepeda MD [address] [place] [address] Assigned Neuroscience Provider 07/08/24 08/07/24 Danna Cardenas PA-C 6405 [place] [address] Assigned Heart and Vascular Provider 07/08/24 Felicita Desai, RN Lead Medical Technician Assistant 07/14/24 07/28/24 Arthur Salas [facility] [address] [address] Assigned Behavioral Health Provider 08/08/24 Randy Maradiaga DO [address] [place] [address] Assigned Neuroscience Provider 08/08/24 documented as of this encounter
--- OUTSIDE RECORDS SUMMARY | 2024-09-20 19:24 | XMS_ITS | Encounter Summary ---
Author Organization [facility] Address [address] [place] [address] Care Team Providers Care Restorative Coordinator Name Role Phone Darius Shaw M.D. Primary Care Provider [phone] Encounter Details Date Type Department Care Team (Late st Contact Info) Description 05/12/2013 Historical Ophthalmology RST O[facility] Jonathan Bonilla M.D. [address] [place] [address] [phone] Social History Tobacco Use Types Packs/Day Years Used Date Smoking Tobacco: Never Assessed Comments Unknown Sex and Gender Information Value Date Recorded Sex Assigned at Female 02/11/2018 8:36 AM CDT Legal Sex Female 8:24 AM MINE PROMOTOR Gender Identity Female 02/11/2018 8:36 AM CDT [...] corneal thickness CDM Reports - EYEGEN Id: [id number] Status: Fnl documented in this encounter Plan of Treatment Not on file documented as of this encounter Visit Diagnoses Not on filedocumented in this encounter Additional Health Concerns Infection Onset Date Last Indicated Resolved Time COVID19 Pending 07/11/2020 07/11/2020 07/12/2020 5 :56 PM CDT COVID19 Pending 07/17/2020 07/17/2020 07/17/2020 9 :18 PM MINE PROMOTOR COVID19 Pending 09/19/2020 09/19/2020 10/09/2020 4 :45 AM MINE PROMOTOR COVID19 Pending 10/25/2020 10/26/2020 10/27/2020 9 :59 AM MINE PROMOTOR COVID19 Pending 06/03/2021 06/03/2021 06/03/2021 9 :40 AM CDT COVID19 Pending 06/03/2021 06/03/2021 06/03/2021 1 0:36 PM CDT COVID19 Pending 08/09/2021 08/09/2021 08/11/2021 1 2:57 AM MINE PROMOTOR COVID19 Pending 06/26/2022 06/26/2022 06/26/2022 5 :47 PM CDT Assessment Noted Time PHQ-9 Depression Total Score: 8 09/18/19 13 7:41 AM MINE PROMOTOR documented as of this encounter Care Teams Restorative Coordinator Relationship Specialty Start Date End Date Darius Shaw M.D. [address] [place] [address] [phone] PCP - General Family Medicine 09/27/22 documented as of this encounter
--- OUTSIDE RECORDS SUMMARY | 2024-09-20 19:24 | XMS_ITS ---
Author Organization [facility] Address [address] [place] [address] Care Team Providers Care High Density Press Laborer Name Role Phone Shauna Winston Saez OD Unavailable [phone] STENOGRAPHER Unavailable [phone] Woodson [address]N [address] STENOGRAPHER Primary Care Provider Usha Simon APRN [address] STENOGRAPHER Unavailable [phone] Dangelo Salinas MD Unavailable Anastasia Stearns RN Unavailable Germaine Lopez CHW Unavailable Joya Lira [facility] Unavailable Joya Lira [facility] Unavailable Fabi Coates MD Unavailable [phone] Danna Cardenas PA-C Unavailable [phone] Arthur SalasSW Unavailable [phone] Randy Maradiaga DO Unavailable + Primary Care Care Coordination Status:Enrolled (Active) Start date:02/06/2024 Enrollment date:02/07/2024 Case Team Name Relationship Phone Anastasia Stearns RN Lead Bridge Mechanic(Respons ible Staff) [phone] Germaine Lopez CHW Community Health Worker [phone] Continued Care and Services Coordination
--- OUTSIDE RECORDS SUMMARY | 2024-09-20 19:24 | XMS_ITS ---
Author Organization [facility] Address [address] [place] [address] Care Team Providers Care Ironer Or Presser Name Role Phone Unavailable Unavailable Unavailable Surgery Details Not on file Complications Check Surgery Details section. Procedure Estimated Blood Loss Check Surgery Details section. Procedure Findings Check Surgery Details section. Procedure Specimens Taken Check Surgery Details section.
--- OUTSIDE RECORDS SUMMARY | 2024-09-20 19:24 | XMS_ITS | Referral Summary ---
Author Organization [facility] Address [address] [place] [address] Care Team Providers Care Inspector Packager Name Role Phone Darius Shaw M.D. Primary Care Provider [phone] Source Comments Patient records contain information from all sites at [facility]. For routine questions regarding patient records, call [phone] during business hours, M-F 8:00 AM - 5:00 PM Central Time. Record requests for emergency care only can be directed to [phone] at any time.[facility] Encounters Date Type Department Care Team [...] week 01/10/2023 How often do you attend episcopalian or hindu serv ices? Never 01/10/2023 Do you belong [...] Answer Date Recorded PHQ-2 Score 3 01/10/2023 [facility] [...] AM CDT Legal Sex Female 8:24 AM INSPECTOR PRECISION ASSEMBLY Gender Identity Female 02/11/2018 8:36 AM CDT [...] on file Medical Devices Implanted Type Area Certified Breastfeeding Educator Device Identifier Shelf Expiration Date Model / Serial / Lot Mesh Or Patch Mesh or Patch Heart Description:Amplatzer Septal Occluder Asd Closure Device 34mm - Sanders [id number] Implanted:Qty: 1 on 06/20/2006 Septal Defect Occluder Device Other/Legacy - See Implant Description Description:Device Manufactu rer - [facility]. Device Status Text - [id number]. 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 RECOMMENDATION: Annual Screening Mammogram ASSESSMENT: BI-RADS: 1: Negative. Narrative 08/01/2023 12:33 PM INSPECTOR PRECISION ASSEMBLY EXAM: BI BREAST SCREENING BILATERAL WITH TOMOSYNTHESIS [...] * Cologuard-Sent Out Lab (10/28/2022 5:54 PM INSPECTOR PRECISION ASSEMBLY) Result Negative Negative 11/03/2022 2:48 AM INSPECTOR PRECISION ASSEMBLY EXLI Comment: NEGATIVE TEST RESULT. A negative [...] Gates et al, N Engl J Med 2014;370(14):1202-1801) The normal value (reference range) for this assay is negative. COLOGUARD RE-SCREENING RECOMMENDATION: Periodic colorectal cancer screening is an important part of preventive healthcare for asymptomatic individuals at average risk for colorectal cancer. Following a negative Cologuard result, the [place] Cancer Society and U.S. Multi-Society Task Force screening guidelines recommend a Cologuard re-screening interval of 3 years. References: [place] [employer] Guideline for Colorectal Cancer Screening: https://www.cancer.org/cancer/uueih-faqqyl-xgwggj/detection- diagnosis-staging/acs-recommendations.html.; Ming DK, Barbra CR, Erna FRANK, Colorectal Cancer Screening: Recommendations for Physicians and Patients from the U.S. Multi-Society Task Force on Colorectal Cancer Screening , Am J Gastroenterology 2017; 112:5612-2668. TEST DESCRIPTION: Composite algorithmic analysis of stool [...] Melchor. et al, N Engl J Med 2014;370(14):3125-2291.) Cologuard may produce a false negative or false positive result (no colorectal cancer or precancerous polyp present at colonoscopy follow up). A negative Cologuard test result does not guarantee the absence of CRC or advanced adenoma (pre-cancer). The current Cologuard screening interval is every 3 years. ([place] Cancer Society and U.S. Multi-Society Task Force). Cologuard performance data in a 10,000 patient pivotal study using colonoscopy as the reference method can be accessed at the following location: www.G[employer].com/results. Additional description of the Cologuard test process, warnings and precautions can be found at www.cologuard.com. Stool (Stool) 10/28/2022 5:5 4 PM INSPECTOR PRECISION ASSEMBLY 10/30/2022 1:57 PM INSPECTOR PRECISION ASSEMBLY Darius S Sahw M.D. LAB BODY FLUIDS AND STOOL S ORDERABLES Final Result [employer] [address] [place] [address] [facility]LI [employer] [address] [facility], [address] [place] [address] * Venous Blood Gas and Electrolytes CG8+, POCT (09/30/2022 10:38 AM INSPECTOR PRECISION ASSEMBLY) Sample Site, POCT Venstick 09/30/2022 10:54 AM INSPECTOR PRECISION ASSEMBLY PCSM Comment: ----ADDITIONAL INFORMATION---- Performed at the Point of Care pH, Venous, POCT, B 7.43 7.32 - 7.43 09/30/2022 10:54 AM INSPECTOR PRECISION ASSEMBLY PCSM Comment: ----ADDITIONAL INFORMATION---- Performed at the Point of Care pCO2, Venous, POCT, B 46 41 - 51 mm Hg 09/30/2022 10:54 AM INSPECTOR PRECISION ASSEMBLY PCSM Comment: ----ADDITIONAL INFORMATION---- Performed at the Point of Care pO2, Venous, POCT, B 25 Not Applicable mm Hg 09/30/2022 10:54 AM INSPECTOR PRECISION ASSEMBLY PCSM Comment: ----ADDITIONAL INFORMATION---- Performed at the Point of Care Base Excess, Venous, POCT, B 6 Not Applicable mmol/L 09/30/2022 10:54 AM INSPECTOR PRECISION ASSEMBLY PCSM Comment: ----ADDITIONAL INFORMATION---- Performed at the Point of Care HCO3, Venous, POCT, B 31 Not Applicable mmol/L 09/30/2022 10:54 AM INSPECTOR PRECISION ASSEMBLY PCSM Comment: ----ADDITIONAL INFORMATION---- Performed at the Point of Care Sodium, POCT, B 140 135 - 145 mmol/L 09/30/2022 10:54 AM INSPECTOR PRECISION ASSEMBLY PCSM Comment: ----ADDITIONAL INFORMATION---- Performed at the Point of Care Potassium, POCT, B 4.3 3.6 - 5.2 mmol/L 09/30/2022 10:54 AM INSPECTOR PRECISION ASSEMBLY PCSM Comment: ----ADDITIONAL INFORMATION---- Performed at the Point of Care Calcium, Ionized, POCT, B 5.20 4.65 - 5.30 mg/dL 09/30/2022 10:54 AM INSPECTOR PRECISION ASSEMBLY PCSM Comment: ----ADDITIONAL INFORMATION---- Performed at the Point of Care Glucose, POCT, B 117 70 - 140 mg/dL 09/30/2022 10:54 AM INSPECTOR PRECISION ASSEMBLY PCSM Comment: ----ADDITIONAL INFORMATION---- Performed at the Point of Care Hematocrit, POCT, B 44.0 35.5 - 44.9 % 09/30/2022 10:54 AM INSPECTOR PRECISION ASSEMBLY PCSM Comment: ----ADDITIONAL INFORMATION---- Performed at the Point of Care Blood 09/30/2022 10:3 8 AM INSPECTOR PRECISION ASSEMBLY 09/30/2022 10:54 AM INSPECTOR PRECISION ASSEMBLY us Unknown Provider LAB POCT ORDERABLES - DEVICE Fi nal Result POC RST [facility] [address] [place] [address], [facility] [address] [place] [address] * (ABNORMAL) Lipid Panel (02/13/2018 6:56 AM CDT) Pathologist [facility] Cholesterol, Total 200(H) mg/dL 02/13/2018 8:08 AM CDT [facility] Comment: ----REFERENCE VALUE---- Desirable: < 200 Borderline high: 200 - 239 High: > or = 240 Triglycerides 143 mg/dL 02/13/2018 8:08 AM CDT [facility] Comment: ----REFERENCE VALUE---- Normal: <150 Borderline high: 150-199 High: 200-499 Very high: > or =500 Cholesterol, HDL, S 49(L) >=50 mg/dL 02/13/2018 8:08 AM CDT [facility] Calculated LDL 122 mg/dL 02/13/2018 8:08 AM CDT [facility] Comment: ----REFERENCE VALUE---- Desirable: <100 Above Desirable: 100-129 Borderline high: 130-159 High: 160-189 Very high: > or =190 Cholesterol, Non-HDL, Calculated 151 mg/dL 02/13/2018 8:08 AM CDT [facility] Comment: ----REFERENCE VALUE---- Desirable: <130 Above Desirable: 130-159 Borderline high: 160-189 High: 190-219 Very high: > or =220 Blood 02/13/2018 6:56 AM CDT 02/13/2018 7:18 AM CDT Dominique Mcgowan M.D. LAB BLOOD ADD-ON Final Result [facility] [address] [place] [address], [facility] from Last 3 Months or Most Recently Relevant to Health Maintenance Insurance [facility] Advance Directives For more information, please contact: [phone] * Full Code (Latest Code Status on File) Date Activated Date Inactivated Comments 09/30/2022 4:41 PM 10/02/2022 6:08 PM Question Answer Comments Full Code: Discussed Care Teams Inspector Packager Relationship Specialty Start Date End Date Darius Shaw M.D. [address] [place] [address] [phone] PCP - General Family Medicine 09/27/22
--- OUTSIDE RECORDS SUMMARY | 2024-09-20 19:24 | XMS_ITS | Clinical Summary ---
Author Organization [facility] Address [address] [place] [address] Care Team Providers Care Asset Manager Name Role Phone Darius Shaw M.D. Primary Care Provider [phone] Source Comments Patient records contain information from all sites at [facility]. For routine questions regarding patient records, call [phone] during business hours, M-F 8:00 AM - 5:00 PM Central Time. Record requests for emergency care only can be directed to [phone] at any time.[facility] Allergies Active Allergy Reactions Criticality Noted Date [...] week 01/10/2023 How often do you attend advent or protestant serv ices? Never 01/10/2023 Do [...] Date Recorded PHQ-2 Score 3 01/10/2023 [facility] [place] of Occupat ional Health - Occupational Stress [...] AM CDT Legal Sex Female 8:24 AM NURSES MEDICAL ASSISTANTS PHLEBOTOMISTS Gender Identity Female 02/11/2018 8:36 AM CDT [...] this topic Medical Devices Implanted Type Area Radiologist Device Identifier Shelf Expiration Date Model / Serial / Lot Mesh Or Patch Mesh or Patch Heart Description:Amplatzer Septal Occluder Asd Closure Device 34mm - Sanders [id number] Implanted:Qty: 1 on 06/20/2006 Septal Defect Occluder Device Other/Legacy - See Implant Description Description:Device Manufactu [facility]. Device Status Text - [id number]. Procedures Procedure Name Priority Date/Time Associated Diagnosis Comments BI BREAST SCREENING BILATERAL WITH TOMOSYNTHESIS RAD - Routine (most inpatients and all outpatients) 07/30/2023 2:38 PM NURSES MEDICAL ASSISTANTS PHLEBOTOMISTS Screening Mammogram Breast Cancer COLOGUARD Routine 10/28/2022 5:54 PM NURSES MEDICAL ASSISTANTS PHLEBOTOMISTS Screening Cancer Colon VBG & LYTES CG8+, POCT, B Routine 09/30/2022 10:38 AM NURSES MEDICAL ASSISTANTS PHLEBOTOMISTS LIPID PANEL, S Routine 02/13/2018 6:56 AM CDT Lizy Danlos Syndrome Chronic Obstructive Pulmonary Disease (HCC) Defect Atrial Septal (HCC) from Last 3 Months or Most Recently Relevant to Health Maintenance Results * BI Breast Screening Bilateral with Tomosynthesis (07/30/2023 2:38 PM NURSES MEDICAL ASSISTANTS PHLEBOTOMISTS) Anatomical Region Laterality Modality Breast, Breast Imaging RST L OS, Breast Imaging ARZ LOS, Breast Imaging FLA LOS Bilateral Mammography 08/01/2023 12:2 8 PM NURSES MEDICAL ASSISTANTS PHLEBOTOMISTS Impressions 08/01/2023 12:33 PM NURSES MEDICAL ASSISTANTS PHLEBOTOMISTS Negative. RECOMMENDATION: Annual Screening Mammogram ASSESSMENT: BI-RADS: 1: Negative. Narrative 08/01/2023 12:33 PM NURSES MEDICAL ASSISTANTS PHLEBOTOMISTS EXAM: BI BREAST SCREENING BILATERAL WITH TOMOSYNTHESIS [...] * Cologuard-Sent Out Lab (10/28/2022 5:54 PM NURSES MEDICAL ASSISTANTS PHLEBOTOMISTS) Result Negative Negative 11/03/2022 2:48 AM NURSES MEDICAL ASSISTANTS PHLEBOTOMISTS EXLI Comment: NEGATIVE TEST RESULT. A negative [...] Gates et al, N Engl J Med 2014;370(14):9258-6110) The normal value (reference range) for this assay is negative. COLOGUARD RE-SCREENING RECOMMENDATION: Periodic colorectal cancer screening is an important part of preventive healthcare for asymptomatic individuals at average risk for colorectal cancer. Following a negative Cologuard result, the [place] [employer] and U.S. Multi-Society Task Force screening guidelines recommend a Cologuard re-screening interval of 3 years. References: [place] [employer] Guideline for Colorectal Cancer Screening: https://www.cancer.org/cancer/hpyex-cyhgou-dkxuwb/detection- diagnosis-staging/acs-recommendations.html.; Ming MARTINEZ, Barbra TREJO, Erna FRANK, Colorectal Cancer Screening: Recommendations for Physicians and Patients from the U.S. Multi-Society Task Force on Colorectal Cancer Screening , Am J Gastroenterology 2017; 112:7198-5265. TEST DESCRIPTION: Composite algorithmic analysis of stool [...] (Yenny Adkins al, N Engl J Med 2014;370(14):8100-9405.) Cologuard may produce a false negative or [...] can be accessed at the following location: www.[employer]/results. Additional description of the Cologuard test process, warnings and precautions can be found at www.Vsnaprd.com. Stool (Stool) 10/28/2022 5:5 4 PM NURSES MEDICAL ASSISTANTS PHLEBOTOMISTS 10/30/2022 1:57 PM NURSES MEDICAL ASSISTANTS PHLEBOTOMISTS us Darius Shaw M.D. LAB BODY FLUIDS AND STOOL S ORDERABLES Final Result [employer] [address] [place] [address] [employer] [address] [place] [address], [address] [place] [address] * Venous Blood Gas and Electrolytes CG8+, POCT (09/30/2022 10:38 AM NURSES MEDICAL ASSISTANTS PHLEBOTOMISTS) [facility] Sample Site, POCT Venstick 09/30/2022 10:54 AM NURSES MEDICAL ASSISTANTS PHLEBOTOMISTS PCSM Comment: ----ADDITIONAL INFORMATION---- Performed at the Point of Care pH, Venous, POCT, B 7.43 7.32 - 7.43 09/30/2022 10:54 AM NURSES MEDICAL ASSISTANTS PHLEBOTOMISTS PCSM Comment: ----ADDITIONAL INFORMATION---- Performed at the Point of Care pCO2, Venous, POCT, B 46 41 - 51 mm Hg 09/30/2022 10:54 AM NURSES MEDICAL ASSISTANTS PHLEBOTOMISTS PCSM Comment: ----ADDITIONAL INFORMATION---- Performed at the Point of Care pO2, Venous, POCT, B 25 Not Applicable mm Hg 09/30/2022 10:54 AM NURSES MEDICAL ASSISTANTS PHLEBOTOMISTS PCSM Comment: ----ADDITIONAL INFORMATION---- Performed at the Point of Care Base Excess, Venous, POCT, B 6 Not Applicable mmol/L 09/30/2022 10:54 AM NURSES MEDICAL ASSISTANTS PHLEBOTOMISTS PCSM Comment: ----ADDITIONAL INFORMATION---- Performed at the Point of Care HCO3, Venous, POCT, B 31 Not Applicable mmol/L 09/30/2022 10:54 AM NURSES MEDICAL ASSISTANTS PHLEBOTOMISTS PCSM Comment: ----ADDITIONAL INFORMATION---- Performed at the Point of Care Sodium, POCT, B 140 135 - 145 mmol/L 09/30/2022 10:54 AM NURSES MEDICAL ASSISTANTS PHLEBOTOMISTS PCSM Comment: ----ADDITIONAL INFORMATION---- Performed at the Point of Care Potassium, POCT, B 4.3 3.6 - 5.2 mmol/L 09/30/2022 10:54 AM NURSES MEDICAL ASSISTANTS PHLEBOTOMISTS PCSM Comment: ----ADDITIONAL INFORMATION---- Performed at the Point of Care Calcium, Ionized, POCT, B 5.20 4.65 - 5.30 mg/dL 09/30/2022 10:54 AM NURSES MEDICAL ASSISTANTS PHLEBOTOMISTS PCSM Comment: ----ADDITIONAL INFORMATION---- Performed at the Point of Care Glucose, POCT, B 117 70 - 140 mg/dL 09/30/2022 10:54 AM NURSES MEDICAL ASSISTANTS PHLEBOTOMISTS PCSM Comment: ----ADDITIONAL INFORMATION---- Performed at the Point of Care Hematocrit, POCT, B 44.0 35.5 - 44.9 % 09/30/2022 10:54 AM NURSES MEDICAL ASSISTANTS PHLEBOTOMISTS PCSM Comment: ----ADDITIONAL INFORMATION---- Performed at the Point of Care Blood 09/30/2022 10:3 8 AM NURSES MEDICAL ASSISTANTS PHLEBOTOMISTS 09/30/2022 10:54 AM NURSES MEDICAL ASSISTANTS PHLEBOTOMISTS us Unknown Provider LAB POCT ORDERABLES - DEVICE Fi nal Result POC RST [facility] IN[facility] [address] [place] [address], [facility] POC [address] [place] [address] * (ABNORMAL) Lipid Panel (02/13/2018 6:56 AM CDT) Pathologist [facility] Cholesterol, Total 200(H) mg/dL 02/13/2018 8:08 AM CDT [facility] Comment: ----REFERENCE VALUE---- Desirable: < 200 Borderline high: 200 - 239 High: > or = 240 Triglycerides 143 mg/dL 02/13/2018 8:08 AM CDT [facility] Comment: ----REFERENCE VALUE---- Normal: <150 Borderline high: 150-199 High: 200-499 Very high: > or =500 Cholesterol, HDL, S 49(L) >=50 mg/dL 02/13/2018 8:08 AM CDT [facility] Calculated LDL 122 mg/dL 02/13/2018 8:08 AM CDT [facility] Comment: ----REFERENCE VALUE---- Desirable: <100 Above Desirable: 100-129 Borderline high: 130-159 High: 160-189 Very high: > or =190 Cholesterol, Non-HDL, Calculated 151 mg/dL 02/13/2018 8:08 AM CDT [facility] Comment: ----REFERENCE VALUE---- Desirable: <130 Above Desirable: 130-159 Borderline high: 160-189 High: 190-219 Very high: > or =220 Blood 02/13/2018 6:56 AM CDT 02/13/2018 7:18 AM CDT Dominique Mcgowan M.D. LAB BLOOD ADD-ON Final Result [facility] [address] [place] [address], [email or web address]] from Last 3 Months or Most Recently Relevant to Health Maintenance Insurance [facility] [place] [address] Advance Directives For more information, please contact: [phone] * Full Code (Latest Code Status on File) Date Activated Date Inactivated Comments 09/30/2022 4:41 PM 10/02/2022 6:08 PM Question Answer Comments Full Code: Discussed Care Teams Asset Manager Relationship Specialty Start Date End Date Darius Shaw M.D. [id number] [place] [address] [phone] PCP - General Family Medicine 09/27/22
--- OUTSIDE RECORDS SUMMARY | 2024-09-20 19:24 | XMS_ITS | Continuity of Care Document ---
Author Name NwHARLANN User [id number] llowed Address Unknown Organization Unknown Address Unknown Procedures FILTER APPLIED:Only known Procedures with Onset Date within the last 5 years Procedure Date Procedure Provider Additiona l Information Status ADMISSION MED REC MARKER FOR REPORTING AND BPA'S (09803) Completed ADMISSION MED REC MARKER FOR REPORTING AND BPA'S (56756) Completed ISTAT CREATININE POCT (02552) Completed URINALYSIS AUTO W/SCOPE (17196) Completed ASSAY OF MAGNESIUM (29677) Completed ASSAY THYROID STIM HORMONE (55209) Completed COMPLETE CBC W/AUTO DIFF WBC (75861) Completed C-REACTIVE PROTEIN (98602) Completed ELECTROCARDIOGRAM TRACING (11504) Completed CT HEAD/BRAIN W/O DYE (10201) Completed ROUTINE VENIPUNCTURE (70062) Completed METABOLIC PANEL TOTAL CA (83317) Completed X-RAY EXAM CHEST 1 VIEW (27595) Completed RESP VIRUS 3-5 TARGETS (55803) Completed ADMISSION MED REC MARKER FOR REPORTING AND BPA'S (10650) Completed FACTOR 2 ASSAY (50853) C ompleted ADMISSION MED REC MARKER FOR REPORTING AND BPA'S (06869) Completed ADMISSION MED REC MARKER FOR REPORTING AND BPA'S (99952) Completed SPEECH/HEARING THERAPY (54623) Completed CARDIOLIPIN ANTIBODY EA IG (05910) Completed F5 GENE (99250) Complete d SELF CARE MNGMENT TRAINING (78916) Completed OT EVAL MOD COMPLEX 45 MIN (64486) Completed NEUROMUSCULAR REEDUCATION (25675) Completed THERAPEUTIC EXERCISES (34391) Completed TTE W/DOPPLER COMPLETE (77629) Completed THERAPEUTIC ACTIVITIES (76056) Completed CT HEAD/BRAIN W/O DYE (20438) Completed EVALUATE SWALLOWING FUNCTION (88796) Completed PT EVAL MOD COMPLEX 30 MIN (62325) Completed GAIT TRAINING THERAPY (59370) Completed HEMOGLOBIN GLYCOSYLATED A1C (00861) Completed LIPID PANEL (57291) Comp leted EMERGENCY DEPT VISIT HI MDM (13737) Completed CT ANGIOGRAPHY HEAD (32851) Completed MRI BRAIN STEM W/O DYE (28861) Completed MEASURE BLOOD OXYGEN LEVEL (93218) Completed COMPLETE CBC W/AUTO DIFF WBC (16236) Completed METABOLIC PANEL TOTAL CA (30172) Completed ROUTINE VENIPUNCTURE (91200) Completed EMERGENCY DEPT VISIT MOD MDM (63507) Completed ELECTROCARDIOGRAM TRACING (52340) Completed CT ANGIOGRAPHY NECK (22306) Completed ASSAY OF TROPONIN QUANT (86613) Completed UPPER EXTREMITY STUDY (17525) Completed EMERGENCY DEPT VISIT LOW MDM (48270) Completed EMERGENCY DEPT VISIT LOW MDM (39753) Completed CT HEAD/BRAIN W/O DYE (87861) Completed METABOLIC PANEL TOTAL CA (46049) Completed ROUTINE VENIPUNCTURE (92015) Completed EMERGENCY DEPT VISIT MOD MDM (34734) Completed THER/PROPH/DIAG INJ IV PUSH (55120) Completed C-REACTIVE PROTEIN (90287) Completed RBC SED RATE NONAUTOMATED (93682) Completed COMPLETE CBC W/AUTO DIFF WBC (57776) Completed COMPLETE CBC W/AUTO DIFF WBC (36380) Completed CT ANGIOGRAPHY NECK (85984) Completed EMERGENCY DEPT VISIT MOD MDM (74129) Completed ROUTINE VENIPUNCTURE (81375) Completed CT HEAD/BRAIN W/O DYE (59573) Completed CT ANGIOGRAPHY HEAD (58109) Completed EMERGENCY DEPT VISIT HI MDM (17473) Completed METABOLIC PANEL TOTAL CA (58224) Completed THER/PROPH/DIAG INJ IV PUSH (33256) Completed ASSAY THYROID STIM HORMONE (94319) Completed ASSAY OF FREE THYROXINE (34111) Completed Encounters FILTER APPLIED:Only known Encounters with Admission Date within the last 5 years Encounter Location Admission Discharge Billing Code Hospital Manager A paco Outpatient Radha Irvin Emergency Cindy Beaulieu Emergency Dillan Baker Emergency Chucky Cordova Emergency Trisha padilla Outpatient Luciano Gutierrez Inpatient [id number] Cristina Villarreal Outpatient Dillan Baker Unknown [facility] Inpatient [facility] Outpatient [facility] Outpatient [facility] Outpatient [facility] Outpatient [facility] Emergency Anthony Lepe Emergency Dillan Baker Outpatient [facility] Outpatient [facility] Emergency [facility] Outpatient [facility] Outpatient [facility] Outpatient [facility] Emergency [facility] Outpatient [facility] Outpatient [facility] Out[facility] Out[facility] Out[facility] Out[facility] Out[facility] Emergency [facility] Out[facility] Out[facility] Out[facility] Out[facility] Out[facility] Out[facility] Out[facility] Out[facility] Out[facility] Outpatient [facility] Outpatient [facility] Outpatient [facility] Outpatient [facility] Outpatient [facility] Outpatient [facility] Out[facility] Out[facility] Out[facility] Out[facility] Out[facility] Outpatient [facility] Outpatient [facility] Outpatient [facility] Emergency [facility] Emergency [facility] Inpatient [facility] Out[facility] Out[facility] Out[facility] Outpatient [facility] Outpatient [facility] Outpatient [facility] Out[facility] Out[facility] Out[facility] Out[facility] Out[facility] Out[facility] Outpatient [facility] Outpatient [facility] Outpatient [facility] Outpatient [facility] Emergency [facility] Outpatient [facility]
--- OUTSIDE RECORDS SUMMARY | 2024-09-20 19:24 | XMS_ITS | Encounter Summary ---
Author Organization [facility] Address [address] [place] [address] Care Team Providers Care Business Coordinator Name Role Phone Timmy Perez MD Unavailable Unavailable Yung Madrigal MD Unavailable Unavailable Winston Villatoro OD Unavailable [phone] Apple Sykes MD Primary Care Provider Unavailab Westley Vera MD Unavailable [phone] GeorginaAlessandra óGmez APRN [employer]SERY SUPERVISOR Primary Car e Provider Serum, Clara Garland MD Primary Care Provider Serum, Clara Garland MD Unavailable [phone] Serum, Clara Garland MD Unavailable [phone] Denise Woodson APRN FOREST NURSERY SUPERVISOR Unavailable [phone] Denise Woodson APRN FOREST NURSERY SUPERVISOR Primary Care Provider Usha Simon APRN FOREST NURSERY SUPERVISOR Unavailable + [phone] Dangelo Salinas MD Unavailable Usha Simon APRN FOREST NURSERY SUPERVISOR Unavailable + [phone] Anastasia Stearns RN Unavailable [phone] Germaine Lopez CHW Unavailable [phone] Robin Zepeda MD Unavailable [phone] Lisa Zambrano MD Unavailable + [phone] Raul Hoyos MD Unavailable SorayaJoya [facility] Unavailable [phone] SorayaKeilaJoya [facility] Unavailable [phone] Fabi Coates MD Unavailable [phone] DuaneRobin MD Unavailable [phone] Danna Cardenas PA-C Unavailable [phone] Felicita Desai RN Unavailable Unavailab ana Arthur Salas [employer] Unavailable [phone] Randy Maradiaga DO Unavailable + Encounter Details Date Type Department Care Team (Late st Contact Info) Description 05/06/2013 MyC Medical Advice [facility] [address] [place] [address] Apple Sykes MD Social History Tobacco Use Types Packs/Day Years Used Date Smoking Tobacco: Never Smokeless Tobacco: Never Alcohol Use Standard Drinks/Week Comments Yes 0 (1 standard drink = 0.6 oz pur e alcohol) minimal Comments No Sex and Gender Information Value Date Recorded Sex Assigned at Not on file Legal Sex Female 4:05 AM FLAT POLISHER Gender Identity Not on file Sexual Orientation Not on file 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 [address] [place] [address] Denise Woodson APRN [facility] [address] [place] [address] 09/29/2024 9:00 AM FLAT POLISHER Virtual Visit [facility] [address] 3rd [place] [address] Randy Maradiaga, DO [address] [place] [address] 10/09/2024 1:20 PM FLAT POLISHER Office Visit [facility] [address] [facility] [address] [place] [phone] Danna Cardenas PA-C [address] [place], [place] [address] 10/15/2024 11:00 AM FLAT POLISHER Office Visit [facility] [address] [place] [address] Denise Woodson APRN [employer]PER[employer] [address] [place], [place] [id number] 10/30/2024 4:00 PM FLAT POLISHER Virtual Visit [facility] [address] [place] [phone] Lisa Zambrano MD [address] [place], [place] [address] 12/29/2024 12:45 PM CDT Office Visit [facility] [address] [place], [place] [address]e [facility] [address] [phone] Fabi Coates MD [address] [address] 12/29/2024 1:45 PM CDT Office Visit [facility] [address] [place], [place] [address] [facility] [address] [phone] Fabi Coates MD [address] [address] 06/01/2025 11:15 AM CDT Appointment [facility] [address] [place] [phone] Robin Zepeda MD [address] [place] [address] 06/04/2025 11:00 AM CDT Office Visit [facility] [address] 3rd [place] [phone] Robin Zepeda MD [address] [place] [phone] Usha Simon APRN [address] [address] documented as of this encounter Visit Diagnoses Not on filedocumented in this encounter Additional Health Concerns Infection Onset Date Last Indicated Resolved Time Rule Out COVID-19 09/13/2024 09/13/2024 09/13/2024 12:31 PM FLAT POLISHER documented as of this encounter Care Teams Business Coordinator Relationship Specialty Start Date End Date Timmy Perez MD PCP - Obstetrics/Gynecology 03/02/08 08/07/15 Yung Madrigal MD RETIRED PCP - Orthopaedics Orthopedics 08/26/12 01/20/24 Winston Villatoro OD [facility] [address] [place] [address] PCP - Ophthalmology Ophthalmology 02/11/13 Apple Sykes MD [facility] [address] [place] [address] PCP - General Family Practice 05/04/13 10/25/16 Westley Bates MD XXX RETIRED XXX [address] [facility] [address] [place] [address] PCP - ENT Otolaryngology 05/14/13 07/28/18 [facility] APRN FOREST NURSERY SUPERVISOR [address] [facility] [place] [address] PCP - General Nurse Practitioner 10/26/16 02/06/17 Clara Cornell MD [address] [facility] [place] [address] PCP - General Internal Medicine 02/07/17 09/20/20 Clara Cornell MD [address] [place] [address] PCP - Assigned PCP 01/17/17 11/18/18 Denise Woodson APRN [employer] SUPER[employer] [address] [place] [address] PCP - General Family Practice 09/21/20 Clara Cornell MD [address] [facility] [place] [address] Assigned PCP 01/17/17 07/16/20 Denise Woodson APRN [employer] SUPER[employer]OR [address] [place] [address] Assigned PCP 07/17/20 Usha Simon APRN FOREST NURSERY SUPERVISOR [address] [facility], [place] [address] Nurse Practitioner Neurological Surgery 01/24/24 Dangelo Salinas MD [address] [place] [address] Neurology 01/27/24 Usha Simon APRN FOR[employer] NURSERY SUPERVISOR [address] [address] Assigned Neuroscience Provider 02/06/24 03/07/24 Anastasia Stearns, RN Lead Facilities Mechanical Design Engineer 02/06/24 Germaine Lopez, W Community Health Worker Primary Care - CC 02/18/24 Robin Zepeda MD [address] [address] Assigned Neuroscience Provider 03/08/24 05/07/24 Lisa Zambrano MD [address] [place] [address] Assigned Heart and Vascular Provider 05/08/24 07/07/24 Raul Hoyos MD [address] [address] Assigned Neuroscience Provider 05/08/24 07/07/24 Joya Lira RPH [address] [address] Pharmacist Pharmacist 05/25/24 Joya Lira RPH [address] [place] [address] Assigned MTM Pharmacist 06/08/24 Fabi Coates MD [address] [place] [address] [address] [place] [address] Genetics, Clinical 06/18/24 Robin Zepeda MD [address] [facility] [id number] [place] [address] Assigned Neuroscience Provider 07/08/24 08/07/24 Danna Cardenas PA-C [address] [place] [address] Assigned Heart and Vascular Provider 07/08/24 Felicita Desai, RN Lead Facilities Mechanical Design Engineer 07/14/24 07/28/24 Arthur Salas [facility] [address] [place] [address] Assigned Behavioral Health Provider 08/08/24 Randy Maradiaga DO [address] [place] [address] Assigned Neuroscience Provider 08/08/24 documented as of this encounter
== END 2024-09-20 19:21 | disposition home or self-care (01) ==
LOC: ED 19:16
PROVIDERS: Emergency Provider Emergency Medicine; PCP Nurse Practitioner
DX: R20.0 Anesthesia of skin (principal); T36.95XA Adverse effect of unspecified systemic antibiotic, initial encounter
CPT/HCPCS: 99282

== ENCOUNTER 2024-11-05 12:20 | Observation (INO) | payer OTHER, MEDICAID, SELFPAY ==
[2024-11-05] VITALS (22 sets, daily range): BP systolic 110–147; BP diastolic 66–95; PULSE 59–82; RESP 8–21; TEMP 36.3–36.8; O2SAT 94–99; BMI 33.2
--- NOTE | 2024-11-05 12:56 | ED_ITS ---
HPI - General Adult General Date Seen: 11/05/24 <Joya Gambino MD - Last Filed: 11/09/24 22:42> Chief complaint: Dizziness/Vertigo <Joya Gambino MD - Last Filed: 11/09/24 22:42> Stated complaint: Blurry vision, Vertigo, Headache <Joya Gambino MD - Last Filed: 11/09/24 22:42> Time Seen by Provider: 11/05/24 12:37 <Joya Gambino MD - Last Filed: 11/09/24 22:42> History of Present Illness HPI narrative: Patient is a 49-year-old woman with a complex past neurologic history, outlined is followed in previous medical records: h/o anx/dep, chronic neck pain, EDS, fibromyalgia as well as a very complex neurologic history. 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 She had a cerebral angiogram at [facility] with Dr. Gutierrez on 01/09/2024. Complicated by strokes. MRI did show multiple acute ischemic infarcts in the frontal lobes, parietal lobes and left supra marginal gyrus. CT angio showed an incidental finding of fibromuscular dysplasia and a non occlusive dissection. After complications of the procedure at [facility] she and her family switched her neurology care to the [facility] system. They have been following with neurologist at [facility] and at the [facility]. She is here today after being referred here from clinic. She had made an appo intment for evaluation of some balance problems over the past 10 days or so but they advised evaluation in the ER instead. She says about 10 days ago she noted difficulty with balance primarily when she is turning. She is able to walk straight okay but when she turns the corner she loses her balance. She has had some associated headaches about 3/4 days. She has not had nausea or vomiting. She does not describe vertigo even when turning, she just feels like she is tipping over. 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 She has not had sudden loss of vision and denies diplopia. She had some right-sided deficits and dizziness related to her prior strokes, but says she did physical therapy and as of last July, she felt she was back to normal neurologically, with no residual symptoms. She has felt this way up until last week. She initially thought her symptoms might be related to a viral process, she has not had any specific viral symptoms other than the headache, denies fever, cough, sore throat, vomiting, diarrhea etcetera. She takes a baby aspirin daily no other anticoagulation. She does not smoke or drink. She drove herself to the ER. She says she only drives locally, any visits up in the [facility] are virtual. <Joya Gambino MD - Last Filed: 11/09/24 22:42> Related Data Home medications: Home Medications ?Medication ?Instructions ?Recorded ?Confirmed fluticasone furoate 200 1 inh inhalation DAILY 07/03/22 11/05/24 mcg-vilanterol 25 mcg/dose inhalation powder (Breo Ellipta) albuterol sulfate 90 mcg/actuation 2 puff inhalation Q4H PRN 08/01/22 11/05/24 aerosol inhaler magnesium 250 mg tablet 250 mg PO HS 08/02/22 11/05/24 trazodone 100 mg tablet 100 mg PO HS sleep 08/02/22 11/05/24 cetirizine 10 mg tablet (Zyrtec) 10 mg PO DAILY 10/08/23 11/05/24 lorazepam 1 mg tablet 0.5 - 1 mg PO DAILY PRN dizziness 05/07/24 11/05/24 levetiracetam 750 mg tablet 375 mg PO BID 05/08/24 11/05/24 (Keppra) citalopram 10 mg tablet 5 mg PO DAILY 09/20/24 11/05/24 aspirin 81 mg tablet,delayed 243 mg PO DAILY 11/05/24 11/05/24 release lidocaine 4 % topical patch 1 patch topical Q24H 11/05/24 11/05/24 oxycodone 5 mg tablet 2.5 mg PO Q4H PRN 11/05/24 11/05/24 psyllium husk 3.4 gram/5.4 gram 1 tbsp PO DAILY 11/05/24 11/05/24 oral powder sennosides 8.6 mg-docusate sodium 2 tab-cap PO BID PRN 11/05/24 11/05/24 50 mg capsule (Senna Plus) <Joya Gambino MD - Last Filed: 11/09/24 22:42> Allergies/adverse reactions: Allergies Allergy/AdvReac Type Severity Reaction Status Date / Time bupropion Allergy Intermediate Diarrhea Verified 09/20/24 18:15 codeine Allergy Intermediate epigastric Verified 09/20/24 18:15 pain erythromycin base Allergy Intermediate stomach Verified 09/20/24 18:15 upset, diarrhea doxycycline Allergy Mild burning Verified 09/20/24 18:15 sensation in hands and feet morphine AdvReac Verified 09/20/24 18:15 <Joya Gambino MD - Last Filed: 11/09/24 22:42> Review of Systems Status of ROS: Reports: 10 or more systems reviewed and unremarkable except as noted in History and below <Joya Gambino MD - Last Filed: 11/09/24 22:42> [facility] Medical History: Medical History Ischemic cerebrovascular accident (CVA) (01/09/24) ?I63.9 - Cerebral infarction, unspecified (ICD-10) History of cerebrovascular disease ?Z86.79 - Personal history of other diseases of the circulatory system (ICD- 10) Dural arteriovenous fistula (~12/2023) ?I67.1 - Cerebral aneurysm, nonruptured (ICD-10) Fibromuscular dysplasia ?I77.3 - Arterial fibromuscular dysplasia (ICD-10) Seizure (01/14/24) ?R56.9 - Unspecified convulsions (ICD-10) History of cerebral angiography (01/09/24) ?Z98.890 - Other specified postprocedural states (ICD-10) Headache ?R51.9 - Headache, unspecified (ICD-10) 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, unspecified (ICD-10) Mild persistent asthma (09/27/22) ?J45.30 - Mild persistent asthma, uncomplicated (ICD-10) Asthma ?J45.909 - Unspecified asthma, uncomplicated (ICD-10) History of blood transfusion (1994) ?Z92.89 - Personal history of other medical treatment (ICD-10) History of vitamin D deficiency ?Z86.39 - Personal history of other endocrine, nutritional and metabolic disease (ICD-10) Anxiety and depression ?F41.9 - Anxiety disorder, unspecified (ICD-10) ?F32.A - Depression, unspecified (ICD-10) Fibromyalgia ?M79.7 - Fibromyalgia (ICD-10) H/O bronchopulmonary dysplasia ?Z87.09 - Personal history of other diseases of the respiratory system (ICD-1 0) Stage 1 chronic kidney disease (11/16/20) ?N18.1 - Chronic kidney disease, stage 1 (ICD-10) Simple renal cyst (10/2020) ?N28.1 - Cyst of kidney, acquired (ICD-10) Asthma ?J45.909 - Unspecified asthma, uncomplicated (ICD-10) <Joya Gambino MD - Last Filed: 11/09/24 22:42> Surgical History: Surgical History History of laparoscopy ?Z98.890 - Other specified postprocedural states (ICD-10) S/P dilation and curettage (1994) ?Z98.890 - Other specified postprocedural states (ICD-10) H/O tubal ligation ?Z98.51 - Tubal ligation status (ICD-10) Status post excision of lipoma (2011) ?Z98.890 - Other specified postprocedural states (ICD-10) ?Z86.018 - Personal history of other benign neoplasm (ICD-10) History of medial meniscus repair of left knee (08/04/13) ?Z98.890 - Other specified postprocedural states (ICD-10) History of laparoscopic cholecystectomy (09/29/20) ?Z90.49 - Acquired absence of other specified parts of digestive tract (ICD- 10) History of hysterectomy for benign disease (2005) ?Z90.710 - Acquired absence of both cervix and uterus (ICD-10) History of catheter-based closure of atrial septal defect (06/2006) ?Z87.74 - Personal history of (corrected) congenital malformations of heart and circulatory system (ICD-10) <Joya Gambino MD - Last Filed: 11/09/24 22:42> Family History: Family History Maternal Grandmother Stroke Paternal Grandfather Diabetes Daughter Depression <Joya Gambino MD - Last Filed: 11/09/24 22:42> Social History: Social History Narrative: to Olaf (would be medical decision maker if needed), adult children 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 [employer] She has a college education Nonsmoker, no ETOH use What is your current living situation?: I presently have a place to live Problems where you live: no known problems Problems where you live details: N/A In the past 12 months, utilities in danger of being shut off: no In past 12 months, lack of transportation kept you from medical appts, meetings, work, or getting things needed for daily living: no In the past 12 mos, have been you worried that your food would run out before you had money to buy more?: never true In the past 12 mos, the food you bought just didn't last and you didn't have money to buy more?: never true Highest level of school completed/degree received: Associate degree: academic program Smoking Status: Never smoker Do you use any of these nicotine containing products: None Second hand tobacco smoke exposure: No How often do you have a drink containing alcohol: never How often do you have six or more drinks on one occasion: Never AUDIT-C Alcohol total score: 0 Non-prescribed substance use: denies use Caffeine: Yes How often does anyone, including family, friends and others, physically hurt you : never How often does anyone, including family, friends and others, insult or talk down to you: never How often does anyone, including family, friends and others, threaten you with harm: never How often does anyone, including family, friends and others, scream or curse at you: never Are you using contraception or practicing any form of control: Yes (hysterectomy) service: No <Joya Gambino MD - Last Filed: 11/09/24 22:42> Exam Narrative: Exam Narrative: Vital signs reviewed In general, alert, nontoxic middle-age woman. Sitting comfortably on the bed. Head: Normocephalic, atraumatic. Eyes: Sclera clear. Pupils equal and reactive. Extraocular movements are full, she had a little nystagmus on rightward gaze, feels off balance with looking around. ENT: Mucous membranes moist. Tongue is midline. Neck: Supple without adenopathy. She has a little bit of tenderness seemingly over the sternocleidomastoid on the right. No stridor. Heart: Regular rate and rhythm without murmur. Lungs: Clear. No increased work of breathing, crackles or wheezes. Abdomen: Soft, nontender to palpation. Extremities: Well perfused, pulses intact. No significant edema. Neurologic: Alert, conversant. Speech fluent, face symmetric. Strength equal in upper and lower extremities. She is mildly ataxic with the left upper extremity, she is able to get her nose but it takes a couple of tries. Her forward gait is steady, but as she turns her body just kind of tips over to the side requiring intervention on my part. Skin: Warm, dry well perfused. Affect: Normal. <Joya Gambino MD - Last Filed: 11/09/24 22:42> Const: Vital Signs, click to edit/add: Vital Signs - 24 hr 11/05/24 12:28 11/05/24 13:11 11/05/24 13:15 Temperature 98.2 F Pulse Rate Pulse Rate [Pulse Oximeter] 69 Respiratory Rate 16 10 L 16 Blood Pressure Blood Pressure [Ri ght Upper Arm] 137/95 H Pulse Oximetry 97 Oxygen Delivery Me thod Room Air 11/05/24 13:29 11/05/24 13:30 11/05/24 13:31 Temperature Pulse Rate Pulse Rate [Pulse Oximeter] Respiratory Rate 12 11 L Blood Pressure 119/79 Blood Pressure [Ri ght Upper Arm] Pulse Oximetry 98 Oxygen Delivery Me thod 11/05/24 14:37 11/05/24 14:45 Temperature Pulse Rate 61 Pulse Rate [Pulse Oximeter] Respiratory Rate 11 L 11 L Blood Pressure Blood Pressure [Ri ght Upper Arm] Pulse Oximetry 97 Oxygen Delivery Me thod <Joya Gambino MD - Last Filed: 11/09/24 22:42> Vital Signs, click to edit/add: Vital Signs - 24 hr 11/05/24 12:28 11/05/24 13:11 11/05/24 13:15 Temperature 98.2 F Pulse Rate Pulse Rate [Pulse Oximeter] 69 Respiratory Rate 16 10 L 16 Blood Pressure Blood Pressure [Ri ght Upper Arm] 137/95 H Pulse Oximetry 97 Oxygen Delivery Me thod Room Air 11/05/24 13:29 11/05/24 13:30 11/05/24 13:31 Temperature Pulse Rate Pulse Rate [Pulse Oximeter] Respiratory Rate 12 11 L Blood Pressure 119/79 Blood Pressure [Ri ght Upper Arm] Pulse Oximetry 98 Oxygen Delivery Me thod 11/05/24 14:37 11/05/24 14:45 Temperature Pulse Rate 61 Pulse Rate [Pulse Oximeter] Respiratory Rate 11 L 11 L Blood Pressure Blood Pressure [Ri ght Upper Arm] Pulse Oximetry 97 Oxygen Delivery Me thod <Mendez Solis MD - Last Filed: 11/05/24 16:21> Course Course ED Course: Following initial evaluation I have ordered some basic workup to include an EKG, metabolic panel, CBC, D-dimer, CRP and viral panel. I have called Neurology through [facility] and will try to get a little guidance from them as to the best imaging modality to evaluate her today. I spoke with a Dr. Andrade on-call for Neurology at [facility] [place]. He recommended just going to MRI MRA, did not feel there was a lot of benefit to CT scanning today. We have a very busy MRI schedule this afternoon and it is un clear whether she will be able to be placed on the schedule. If we are not able to do that we will plan to admit her for imaging tomorrow morning as she is fairly opposed to the idea of transfer. Labs all reviewed and unremarkable. She had an EKG which showed a sinus rhythm, ventricular rate of 73. She has frequent PVCs, no triplets or couplets. <Joya Gambino MD - Last Filed: 11/09/24 22:42> Vital Signs Vital signs: Initial Vital Signs Temperature 98.2 F 11/05/24 12:28 Temperature Source Temporal Artery Scan 11/05/24 12:28 Pulse Rate 69 11/05/24 12:28 Pulse Rhythm Irregular 11/05/24 12:28 Respiratory Rate 16 11/05/24 12:28 Blood Pressure 137/95 H 11/05/24 12:28 Blood Pressure Mean 109 H 11/05/24 12:28 Blood Pressure Position Sitting 11/05/24 12:28 Pulse Oximetry 97 11/05/24 12:28 Oxygen Delivery Method Room Air 11/05/24 12:28 Vital Signs Temperature 98.2 F 11/05/24 12:28 Pulse Rate 69 11/05/24 12:28 Respiratory Rate 16 11/05/24 12:28 Blood Pressure 137/95 H 11/05/24 12:28 Pulse Oximetry 97 11/05/24 12:28 Oxygen Delivery Method Room Air 11/05/24 12:28 Temperature 98.0 F 11/07/24 11:08 Pulse Rate 79 11/07/24 11:08 Respiratory Rate 16 11/07/24 11:08 Blood Pressure 122/77 11/07/24 11:08 Pulse Oximetry 92 11/07/24 11:08 Oxygen Delivery Method Room Air 11/07/24 11:08 <Joya Gambino MD - Last Filed: 11/09/24 22:42> Initial Vital Signs Temperature 98.2 F 11/05/24 12:28 Temperature Source Temporal Artery Scan 11/05/24 12:28 Pulse Rate 69 11/05/24 12:28 Pulse Rhythm Irregular 11/05/24 12:28 Respiratory Rate 16 11/05/24 12:28 Blood Pressure 137/95 H 11/05/24 12:28 Blood Pressure Mean 109 H 11/05/24 12:28 Blood Pressure Position Sitting 11/05/24 12:28 Pulse Oximetry 97 11/05/24 12:28 Oxygen Delivery Method Room Air 11/05/24 12:28 Vital Signs Temperature 98.2 F 11/05/24 12:28 Pulse Rate 69 11/05/24 12:28 Respiratory Rate 16 11/05/24 12:28 Blood Pressure 137/95 H 11/05/24 12:28 Pulse Oximetry 97 11/05/24 12:28 Oxygen Delivery Method Room Air 11/05/24 12:28 Temperature 98.0 F 11/07/24 11:08 Pulse Rate 79 11/07/24 11:08 Respiratory Rate 16 11/07/24 11:08 Blood Pressure 122/77 11/07/24 11:08 Pulse Oximetry 92 11/07/24 11:08 Oxygen Delivery Method Room Air 11/07/24 11:08 <Mendez Solis MD - Last Filed: 11/05/24 16:21> Medications Administered Medications: Discontinued Medications Generic Name Dose Route Start Last Admin Trade Name Freq PRN Reason Stop Dose Admin Acetaminophen 1,000 mg 11/05/24 14:28 11/05/24 14:40 Acetaminophen 500 Mg Tablet PO 11/05/24 14:29 1,000 mg ONCE ONE Administration Acetaminophen 975 mg 11/05/24 18:51 11/06/24 14:34 Acetaminophen 325 Mg Tablet PO 975 mg Q6H PRN Administration Aspirin 243 mg 11/06/24 09:00 11/07/24 08:38 Aspirin 81 Mg Tablet Ec PO 243 mg DAILY KEARA Administration Cetirizine HCl 10 mg 11/06/24 09:00 11/07/24 08:39 Cetirizine Hcl 10 Mg Tablet PO 10 mg DAILY KEARA Administration Citalopram Hydrobromide 5 mg 11/06/24 09:00 11/06/24 09:27 Citalopram Hydrobromide 20 Mg Tablet PO Not Given DAILY KEARA Citalopram Hydrobromide 5 mg 11/06/24 21:00 11/06/24 21:29 Citalopram Hydrobromide 20 Mg Tablet PO 5 mg HS KEARA Administration Ketorolac Tromethamine 15 mg 11/06/24 19:13 11/06/24 19:46 Ketorolac 15 Mg/Ml Inj IVP 11/06/24 19:14 15 mg ONCE ONE Administration Levetiracetam 375 mg 11/05/24 21:00 11/07/24 08:38 Levetiracetam 500 Mg Tablet PO 375 mg BID KEARA Administration Lidocaine 1 patch 11/05/24 19:00 11/06/24 19:11 Lidocaine 5% Patch TRANSDERMA 1 patch Q24H KEARA Administration Lorazepam 0.5 mg 11/05/24 18:56 11/06/24 09:37 Lorazepam 0.5 Mg Tablet PO 0.5 mg Q6H PRN Administration Magnesium Oxide 400 mg 11/06/24 21:00 11/06/24 21:29 Magnesium Oxide 400 Mg Tablet PO 400 mg HS KEARA Administration Fluticasone Furoate- 1 inhalation 11/06/24 09:00 11/07/24 08:39 Vilanterol [Breo IH Not Given Ellipta] 200-25 Mcg/ DAILY KEARA Dose Ondansetron HCl 4 mg 11/05/24 18:51 11/06/24 09:41 Ondansetron 2 Mg/Ml Inj IVP 4 mg Q4H PRN Administration Nausea Psyllium Hydrophilic Mucilloid 12 gm 11/07/24 09:00 11/07/24 08:39 Psyllium Husk (With Sugar) 12 Gm Packet PO 12 gm DAILY KEARA Administration Sodium Chloride 5 ml 11/05/24 21:00 11/07/24 08:39 Sodium Chloride 0.9 % (Flush) 10 Ml Syringe IVF 5 ml BID KEARA Administration Trazodone HCl 100 mg 11/05/24 21:00 11/06/24 21:29 Trazodone Hcl 50 Mg Tablet PO 100 mg HS KEARA Administration <Joya Gambino MD - Last Filed: 11/09/24 22:42> Discontinued Medications Generic Name Dose Route Start Last Admin Trade Name Freq PRN Reason Stop Dose Admin Acetaminophen 1,000 mg 11/05/24 14:28 11/05/24 14:40 Acetaminophen 500 Mg Tablet PO 11/05/24 14:29 1,000 mg ONCE ONE Administration Acetaminophen 975 mg 11/05/24 18:51 11/06/24 14:34 Acetaminophen 325 Mg Tablet PO 975 mg Q6H PRN Administration Aspirin 243 mg 11/06/24 09:00 11/07/24 08:38 Aspirin 81 Mg Tablet Ec PO 243 mg DAILY KEARA Administration Cetirizine HCl 10 mg 11/06/24 09:00 11/07/24 08:39 Cetirizine Hcl 10 Mg Tablet PO 10 mg DAILY KEARA Administration Citalopram Hydrobromide 5 mg 11/06/24 09:00 11/06/24 09:27 Citalopram Hydrobromide 20 Mg Tablet PO Not Given DAILY KEARA Citalopram Hydrobromide 5 mg 11/06/24 21:00 11/06/24 21:29 Citalopram Hydrobromide 20 Mg Tablet PO 5 mg HS KEARA Administration Ketorolac Tromethamine 15 mg 11/06/24 19:13 11/06/24 19:46 Ketorolac 15 Mg/Ml Inj IVP 11/06/24 19:14 15 mg ONCE ONE Administration Levetiracetam 375 mg 11/05/24 21:00 11/07/24 08:38 Levetiracetam 500 Mg Tablet PO 375 mg BID KEARA Administration Lidocaine 1 patch 11/05/24 19:00 11/06/24 19:11 Lidocaine 5% Patch TRANSDERMA 1 patch Q24H KEARA Administration Lorazepam 0.5 mg 11/05/24 18:56 11/06/24 09:37 Lorazepam 0.5 Mg Tablet PO 0.5 mg Q6H PRN Administration Magnesium Oxide 400 mg 11/06/24 21:00 11/06/24 21:29 Magnesium Oxide 400 Mg Tablet PO 400 mg HS KEARA Administration Fluticasone Furoate- 1 inhalation 11/06/24 09:00 11/07/24 08:39 Vilanterol [Breo IH Not Given Ellipta] 200-25 Mcg/ DAILY KEARA Dose Ondansetron HCl 4 mg 11/05/24 18:51 11/06/24 09:41 Ondansetron 2 Mg/Ml Inj IVP 4 mg Q4H PRN Administration Nausea Psyllium Hydrophilic Mucilloid 12 gm 11/07/24 09:00 11/07/24 08:39 Psyllium Husk (With Sugar) 12 Gm Packet PO 12 gm DAILY KEARA Administration Sodium Chloride 5 ml 11/05/24 21:00 11/07/24 08:39 Sodium Chloride 0.9 % (Flush) 10 Ml Syringe IVF 5 ml BID KEARA Administration Trazodone HCl 100 mg 11/05/24 21:00 11/06/24 21:29 Trazodone Hcl 50 Mg Tablet PO 100 mg HS KEARA Administration <Mendez Solis MD - Last Filed: 11/05/24 16:21> Medical Decision Making MDM Narrative Medical decision making narrative: Care for this patient was transferred to [facility] at the end of Dr. Aguilar shift. This patient is awaiting an MRI MRA a but this study will not be able to be conducted this evening due to some maintenance issues with MRI machine. She is accepted for admission overnight for this to occur in the morning. Dr. Campa accepts for admission. <Mendez Solis MD - Last Filed: 11/05/24 16:21> Lab Data Lab results reviewed: Yes I reviewed the patient's lab results <Joya Gambino MD - Last Filed: 11/09/24 22:42> Labs: Lab Results 11/05/24 11/05/24 Range/Units 13:00 13:15 WBC 8.80 (4.50-11.00) K/uL RBC 4.59 (4.00-5.20) m/uL Hgb 14.0 (12.0-16.0) gm/dL Hct 42.7 (33.0-51.0) % MCV 93 (80-100) fL MCH 31 (26-34) pg MCHC 33 (32-36) gm/dL RDW Coeff of Bár[place] 12.5 (11.5-15.5) % Plt Count 188 (140-440) K/uL Neut % (Auto) 52.4 (42.0-72.0) % Lymph % (Auto) 22.6 (20-44) % [place] % (Auto) 5.3 (0.0-11.0) % Eos % (Auto) 19.3 H (0.0-7.0) % Baso % (Auto) 0.3 (0.0-3.0) % Neut # (Auto) 4.60 (1.7-7.0) K/uL Lymph # (Auto) 1.99 (0.90-2.90) K/uL [place] # (Auto) 0.50 (0.00-0.90) K/UL Eos # (Auto) 1.70 H (0.00-0.50) K/uL Baso # (Auto) 0.03 (0.00-0.30) K/uL Abs Immat Gran (auto) 0.01 (0.00-0.30) K/uL Imm/Tot Granulo (auto) 0.1 % D-Dimer Quant (PE/DVT) 0.53 H (0.00-0.50) ug/ml Sodium 137 (135-149) mmol/L Potassium 4.2 (3.6-5.1) mmol/L Chloride 100 (96-114) mmol/L Carbon Dioxide 32 (20-32) mmol/L Anion Gap 5 L (7-15) mEq/L BUN 15 (5-24) mg/dL Creatinine 0.7 (0.5-1.5) mg/dL Estimated GFR 107 ml/min Glucose 94 (60-115) mg/dL Calcium 9.4 (8.4-10.6) mg/dL Magnesium 1.9 (1.5-2.6) mg/dL C-Reactive Protein 0.8 (0.5-1.0) mg/dL TSH 2.830 (0.270-4.20) uIU/mL SARS-CoV-2 (PCR) Negative SARS-CoV-2 (Negative) Influenza Type A (PCR) Negative PCR FLU A (Negative) Influenza Type B (PCR) Negative PCR FLU B (Negative) RSV (PCR) Negative PCR RSV (Negative) <Joya Gambino MD - Last Filed: 11/09/24 22:42> Lab Results 11/05/24 11/05/24 Range/Units 13:00 13:15 WBC 8.80 (4.50-11.00) K/uL RBC 4.59 (4.00-5.20) m/uL Hgb 14.0 (12.0-16.0) gm/dL Hct 42.7 (33.0-51.0) % MCV 93 (80-100) fL MCH 31 (26-34) pg MCHC 33 (32-36) gm/dL RDW Coeff of [place] 12.5 (11.5-15.5) % Plt Count 188 (140-440) K/uL Neut % (Auto) 52.4 (42.0-72.0) % Lymph % (Auto) 22.6 (20-44) % [place] % (Auto) 5.3 (0.0-11.0) % Eos % (Auto) 19.3 H (0.0-7.0) % Baso % (Auto) 0.3 (0.0-3.0) % Neut # (Auto) 4.60 (1.7-7.0) K/uL Lymph # (Auto) 1.99 (0.90-2.90) K/uL [place] # (Auto) 0.50 (0.00-0.90) K/UL Eos # (Auto) 1.70 H (0.00-0.50) K/uL Baso # (Auto) 0.03 (0.00-0.30) K/uL Abs Immat Gran (auto) 0.01 (0.00-0.30) K/uL Imm/Tot Granulo (auto) 0.1 % D-Dimer Quant (PE/DVT) 0.53 H (0.00-0.50) ug/ml Sodium 137 (135-149) mmol/L Potassium 4.2 (3.6-5.1) mmol/L Chloride 100 (96-114) mmol/L Carbon Dioxide 32 (20-32) mmol/L Anion Gap 5 L (7-15) mEq/L BUN 15 (5-24) mg/dL Creatinine 0.7 (0.5-1.5) mg/dL Estimated GFR 107 ml/min Glucose 94 (60-115) mg/dL Calcium 9.4 (8.4-10.6) mg/dL Magnesium 1.9 (1.5-2.6) mg/dL C-Reactive Protein 0.8 (0.5-1.0) mg/dL TSH 2.830 (0.270-4.20) uIU/mL SARS-CoV-2 (PCR) Negative SARS-CoV-2 (Negative) Influenza Type A (PCR) Negative PCR FLU A (Negative) Influenza Type B (PCR) Negative PCR FLU B (Negative) RSV (PCR) Negative PCR RSV (Negative) <Mendez Solis MD - Last Filed: 11/05/24 16:21> Discharge Plan Discharge Clinical Impression: Ataxia <Joya Gambino MD - Last Filed: 11/09/24 22:42> Patient Disposition: Admitted As Observation <Joya Gambino MD - Last Filed: 11/09/24 22:42> Condition: Unchanged <Joya Gambino MD - Last Filed: 11/09/24 22:42> Activity Level: No Restrictions and Activity as Tolerated <Joya Gambino MD - Last Filed: 11/09/24 22:42> No Restrictions and Activity as Tolerated <Mendez Solis MD - Last Filed: 11/05/24 16:21> Discharge Diet: Regular <Joya Gambino MD - Last Filed: 11/09/24 22:42> Regular <Mendez Solis MD - Last Filed: 11/05/24 16:21>
--- OUTSIDE RECORDS SUMMARY | 2024-11-05 13:05 | XMS_ITS | Encounter Summary ---
Author Organization [address] Address [address] [place] [address] Care Team Providers Care Hand Tacker Name Role Phone Winston Villatoro OD Unavailable [phone] Denise Woodson APRN TREATING AND PUMPING SUPERVISOR Unavailable +[phone] Denise Woodson APRN TREATING AND PUMPING SUPERVISOR Primary Care Provider Usha Simon APRN TREATING AND PUMPING SUPERVISOR Unavailable + [phone] Dangelo Salinas MD Unavailable Anastasia Stearns RN Unavailable Germaine Aleman [facility] Unavailable +[phone] Lisa Zambrano MD Unavailable + [phone] Raul Hoyos MD Unavailable [phone] Joya Lira [facility] Unavailable +[phone] Joya Lira [facility] Unavailable +[phone] Fabi Coates MD Unavailable [phone] Robin Zepeda MD Unavailable [phone] Danna Cardenas PA-C Unavailable +[phone] Felicita Desai RN Unavailable Unavailab Arthur Rios Unavailable +[phone] Randy Maradiaga DO Unavailable + Tete Wang MD Unavailable +[phone] Encounter Details Date Type Department Care Team (Late st Contact Info) Description 06/28/[address] [facility] [address] [place] [address] Denise Woodson [employer] [facility] [address] [place] [address] Social History Tobacco Use Types [...] How often do you attend anabaptist or shinto serv ices? Never 02/28/2024 Do [...] Answer Date Recorded PHQ-2 Score 2 07/02/2024 [facility] [place] of Occupat ional Health - Occupational Stress [...] on file Legal Sex Female 4:05 AM PAPER CUP MACHINE OPERATOR Gender Identity Not on file [...] dose. Pharmacy T'd up. CHELSEY Luke, RN [facility] 07/02/2024 at 9:48 AM * Telephone [...] to provider to advise. Qing Copeland Lead Canvas Shrinker [facility] documented in this encounter Plan of Treatment Upcoming Encounters Date Type Department Care Team (Late st Contact Info) Description 11/06/2024 12:00 PM PAPER CUP MACHINE OPERATOR Virtual Visit [facility] [address] [place] [address] Denise Woodson APRN TREATING AND PUMPING SUPERVISOR [address] [place], [place] 74278[address] 12/01/2024 4:00 PM CDT Virtual Visit [facility] Vascular Clinic [place] [address] [place] [phone] Lisa Zambrano MD [address] [place] [address] 12/03/2024 7:00 AM CDT Virtual Visit [facility] Neurology [address] 3rd [place] [phone] Randy Maradiaga, [address] 768[address] 12/09/2024 12:45 PM CDT Office Visit [facility] [address] [place] [phone] Tete Wang MD [address] [place] [address] 959364 12/09/2024 1:15 PM CDT Office Visit [facility] [address] [place] [phone] Tete Wang MD [address] [place] [address] 054184 12/15/2024 3:00 PM CDT Virtual Visit [facility] [address] [place] [phone] Denise Woodson APRN [facility] [id number] [place] [address] [id number] 01/19/2025 PRE VISIT [facility] [address] [phone] Any Joiner MD [address] [place] [address] *-*INCOMING RECORDS*-* 01/19/2025 3:00 PM CDT Orders Only [facility] Pulmonary Function Testing [address] [phone] 01/19/2025 4:00 PM CDT Office Visit [facility] [address] [phone] Any Joiner MD [address] [place] [address] 309265 06/01/2025 11:15 AM CDT Appointment [facility] [address] [place] [phone] Robin Zepeda MD [address] [place] [address] 06/04/2025 11:00 AM CDT Office Visit [facility] Neurosurgery [address] [phone] Robin Zepeda MD [address] [place] [address] Usha Simon APRN [address] [address] documented as of this encounter Visit Diagnoses Not on filedocumented in this encounter Additional Health Concerns Infection Onset Date Last Indicated Resolved Time Rule Out COVID-19 09/13/2024 09/13/2024 09/13/2024 12:31 PM PAPER CUP MACHINE OPERATOR Assessment Noted Time PHQ-9 Depression Total Score: 5 03/17/20 24 9:45 AM CDT documented as of this encounter Care Teams Hand Tacker Relationship Specialty Start Date End Date Winston Villatoro OD [facility] [place] [address] [place] [address] PCP - Ophthalmology Ophthalmology 02/11/13 Denise Woodson APRN TREATING AND PUMPING SUPERVISOR [address] [place] [address] PCP - General Family Practice 09/21/20 Denise Woodson APRN TREATING AND PUMPING SUPERVISOR [address] [place] [address] Assigned PCP 07/17/20 Usha Simon APRN TREATING AND PUMPING SUPERVISOR [address] 359325 Nurse Practitioner Neurological Surgery 01/24/24 Dangelo Salinas MD [address] [place], [place] [phone] Neurology 01/27/24 Anastasia Stearns, RN Lead Web Content & Social Media Manager 02/06/24 Germaine Aleman, W Community Health Worker Primary Care - CC 02/18/24 Lisa Zambrano MD [address] [place] 744335 Assigned Heart and Vascular Provider 05/08/24 07/07/24 Raul Hoyos MD [address] 564835 Assigned Neuroscience Provider 05/08/24 07/07/24 Joya Lira [facility] [address] [place] [address] Pharmacist Pharmacist 05/25/24 Soraya Joya [facility] [address] [facility] [place] [address] Assigned MTM Pharmacist 06/08/24 Fabi Coates MD [address] [place] [address] 75 [place], [place] 623755 Genetics, Clinical 06/18/24 Robin Zepeda MD [address] [place], [place] [address] [place], [place] 452835 Assigned Neuroscience Provider 07/08/24 08/07/24 Danna Cardenas PA-C [address] [place] [address] 875755 Assigned Heart and Vascular Provider 07/08/24 Felicita Desai RN Lead Web Content & Social Media Manager 07/14/24 07/28/24 Arthur Salas [facility] [address] [place] [address] Assigned Behavioral Health Provider 08/08/24 Randy Maradiaga DO [address] [place] [address] 175695 Assigned Neuroscience Provider 08/08/24 Tete Wang MD [address] [place], [place] 893474 Genetics, Clinical 10/30/24 documented as of this encounter
--- OUTSIDE RECORDS SUMMARY | 2024-11-05 13:05 | XMS_ITS | Encounter Summary ---
Author Organization [facility] Address [address] [place] [address] Care Team Providers Care Stepdown Nurse Name Role Phone Winston Villatoro OD Unavailable [phone] Denise Woodson APRN OPERATOR CONTROL ROOM Unavailable [phone] Denise Woodson APRN OPERATOR CONTROL ROOM Primary Care Provider Usha Simon APRN OPERATOR CONTROL ROOM Unavailable + [phone] Dangelo Salinas MD Unavailable Anastasia Stearns RN Unavailable Germaine Aleman [facility] Unavailable +[phone] iLsa Zambrano MD Unavailable + [phone] Raul Hoyos MD Unavailable [phone] Joya Lira [facility] Unavailable +[phone] Joya Lira [facility] Unavailable +[phone] Fabi Coates MD Unavailable [phone] Robin Zepeda MD Unavailable [phone] Danna Cardenas PA-C Unavailable +[phone] Felicita Desai RN Unavailable Unavailab Arthur Rios Unavailable [phone] Randy Maradiaga DO Unavailable + Tete Wang MD Unavailable [phone] Encounter Details Date Type Department Care Team (Late st Contact Info) Description 05/25/2024 Ajay Medical Advice [facility] Neurology Clinic [address] 3rd [place] [address] Raul Hoyos MD [address] [place] [address] [id number] [place], [place] [phone] Social History Tobacco Use Types Packs/Day Years [...] How often do you attend mormon or congregational serv ices? 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 [place] [phone] Lisa Zambrano MD [address] [place] 971885 12/03/2024 7:00 AM CDT Virtual Visit [facility] Neurology [address] [phone] Randy Maradiaga, [address] 170825 12/09/2024 12:45 PM CDT Office Visit [facility] [address] [place] [address] [phone] Tete Wang MD [address] [place] [address] 303834 12/09/2024 1:15 PM CDT Office Visit [facility]ty [facility] [address] [place] [address] [phone] Tete Wang MD [address] [place] [address] 853364 12/15/2024 3:00 PM CDT Virtual Visit [facility] [address] [place] [address] Denise Woodson APRN [facility] [address] [place], [place] [phone] 01/19/2025 PRE VISIT [facility] Lung Science [address] [phone] Any Joiner MD [address] [place] [address] 842205 *-*INCOMING RECORDS*-* 01/19/2025 3:00 PM CDT Orders Only [facility] Pulmonary Function Testing [address] [phone] 01/19/2025 4:00 PM CDT Office Visit [facility] Lung Science [address] [phone] Any Joiner MD [address] [place] [address] 522225 06/01/2025 11:15 AM CDT Appointment [facility] [address] [facility] [address] [place] [phone] Robin Zepeda MD [address] [place] [address] 06/04/2025 11:00 AM CDT Office Visit [address] [phone] Robin Zepeda MD [address] [place] [address] Usha Simon APRN OPERATOR CONTROL ROOM [address] [address] documented as of this encounter Visit Diagnoses Not on filedocumented in this encounter Additional Health Concerns Infection Onset Date Last Indicated Resolved Time Rule Out COVID-19 09/13/2024 09/13/2024 09/13/2024 12:31 PM MONOMER RECOVERY OPERATOR Assessment Noted Time PHQ-9 Depression Total Score: 5 03/17/20 24 9:45 AM CDT documented as of this encounter Care Teams Stepdown Nurse Relationship Specialty Start Date End Date Winston Villatoro OD [facility] [place] [address] [place] [address] PCP - Ophthalmology Ophthalmology 02/11/13 Denise Woodson APRN OPERATOR CONTROL ROOM [address] [place] [address] PCP - General Family Practice 09/21/20 Denise Woodson APRN OPERATOR CONTROL ROOM [address] [place] [address] Assigned PCP 07/17/20 Usha Simon APRN OPERATOR CONTROL ROOM [address] [place] [address] Nurse Practitioner Neurological Surgery 01/24/24 Dangelo Salinas MD [address] [place] [address] Neurology 01/27/24 Anastasia Stearns, RN Lead Dairy Specialist 02/06/24 Germaine Aleman, [facility] Community Health Worker Primary Care - CC 02/18/24 Lisa Zambrano MD [address] [facility] [address] [place] [address] Assigned Heart and Vascular Provider 05/08/24 07/07/24 Raul Hoyos MD [address] [address] Assigned Neuroscience Provider 05/08/24 07/07/24 Joya Lira [facility] [address] [facility] [place] [address] Pharmacist Pharmacist 05/25/24 Joya Lira [facility] [address] [place] [address] Assigned MTM Pharmacist 06/08/24 Fabi Coates MD [address] [place] [address] 75 [place] [address] Genetics, Clinical 06/18/24 Robin Zepeda MD [address] [address] Assigned Neuroscience Provider 07/08/24 08/07/24 Danna Cardenas PA-C 6405 [place] [address] Assigned Heart and Vascular Provider 07/08/24 Felicita Desai, RN Lead Dairy Specialist 07/14/24 07/28/24 Arthur Salas, [facility] [address] [place] [address] Assigned Behavioral Health Provider 08/08/24 Randy Maradiaga DO 909 [place], [place] 593955 Assigned Neuroscience Provider 08/08/24 Tete Wang MD 2450 [place] [address] Genetics, Clinical 10/30/24 documented as of this encounter
--- OUTSIDE RECORDS SUMMARY | 2024-11-05 13:05 | XMS_ITS | Encounter Summary ---
Author Organization [facility] Address [address] [place] [address] Care Team Providers Care Computer Analyst Name Role Phone Winston Villatoro OD Unavailable +[phone] Denise Woodson APRN PEDIATRICS PHYSICIAN Unavailable +[phone] Denise Woodson APRN PEDIATRICS PHYSICIAN Primary Care Provider Usha Simon APRN PEDIATRICS PHYSICIAN Unavailable + [phone] Dangelo Salinas MD Unavailable Anastasia Stearns RN Unavailable Germaine Aleman [facility] Unavailable +[phone] Lisa Zambrano MD Unavailable + [phone] Raul Hoyos MD Unavailable Joya Lira [facility] Unavailable [phone] Joya Lira [facility] Unavailable +[phone] Fabi Coates MD Unavailable [phone] Robin Zepeda MD Unavailable +[phone] Danna Cardenas PA-C Unavailable +[phone] Felicita Desai RN Unavailable Unavailab Arthur Rios Unavailable +[phone] Randy Maradiaga DO Unavailable + Tete Wang MD Unavailable +[phone] Encounter Details Date Type Department Care Team (Late st Contact Info) Description 05/24/2024 MyC Medical Advice Se [facility] [address], [address] [place] [address] Rohit Barcenas MD [address] [facility] [address] [place] [address] Social History Tobacco Use Types [...] How often do you attend yazidi or voodoo serv ices? Never 02/28/2024 Do [...] Answer Date Recorded PHQ-2 Score 2 05/05/2024 [facility] [place] of Occupat ional Health - Occupational Stress [...] on file Legal Sex Female 4:05 AM VAT OVERHAULER Gender Identity Not on file Sexual Orientation [...] st Contact Info) Description 11/06/2024 12:00 PM VAT OVERHAULER Virtual Visit [facility] [address] [place] [phone] Denise Woodson APRN PEDIATRICS PHYSICIAN [address] [place], [place] 1413668 12/01/2024 4:00 PM CDT Virtual Visit [facility] Vascular [facility] [address] [place] [phone] Lisa Zambrano MD [address] [place] 637325 12/03/2024 7:00 AM CDT Virtual Visit [facility] Neurology [address] [phone] Randy Maradiaga, [address] 252145 12/09/2024 12:45 PM CDT Office Visit [facility] [address] [place] [address] [phone] Tete Wang MD [address] [place] [address] 538894 12/09/2024 1:15 PM CDT Office Visit [facility] [address] [place] [address] [phone] Tete Wang MD [address] [place] [address] 730724 12/15/2024 3:00 PM CDT Virtual Visit [facility] [address] [place] [address] Chintan Denise, [employer]OWBOAT ENGINE[facility] [address] [facility] [place], [place] 2795468 01/19/2025 PRE VISIT [facility] Lung Science [address] [phone] Any Joiner MD [address] [place] [address] 607635 *-*INCOMING RECORDS*-* 01/19/2025 3:00 PM CDT Orders Only [facility] Pulmonary Function Testing [address] [place] [phone] 01/19/2025 4:00 PM CDT Office Visit [facility] Lung Science [address] [phone] Any Joiner MD [address] [place] [address] 996125 06/01/2025 11:15 AM CDT Appointment [facility] Imaging [address] [facility] [address] [place] [phone] Robin Zepeda MD [address] [place] [address] 06/04/2025 11:00 AM CDT Office Visit [address] [place] [phone] Robin Zepeda MD [address] [place] [address] Usha Simon APRN PEDIATRICS PHYSICIAN [address] [address] documented as of this encounter Visit Diagnoses Not on filedocumented in this encounter Additional Health Concerns Infection Onset Date Last Indicated Resolved Time Rule Out COVID-19 09/13/2024 09/13/2024 09/13/2024 12:31 PM VAT OVERHAULER Assessment Noted Time PHQ-9 Depression Total Score: 5 03/17/20 24 9:45 AM CDT documented as of this encounter Care Teams Computer Analyst Relationship Specialty Start Date End Date Winston Villatoro OD [facility] [place] [address] [place] [address] PCP - Ophthalmology Ophthalmology 02/11/13 Denise Woodson APRN PEDIATRICS PHYSICIAN [address] [place] [address] PCP - General Family Practice 09/21/20 Denise Woodson APRN PEDIATRICS PHYSICIAN [address] [place] [address] Assigned PCP 07/17/20 Usha Simon APRN PEDIATRICS PHYSICIAN [address] [place] [address] Nurse Practitioner Neurological Surgery 01/24/24 Dangelo Salinas MD [address] [phone] Neurology 01/27/24 Anastasia Stearns, RN Lead Associate Professor Of Art 02/06/24 Germaine Aleman, CH[facility] Community Health Worker Primary Care - CC 02/18/24 Lisa Zambrano MD 6[address] [facility] [place] [address] Assigned Heart and Vascular Provider 05/08/24 07/07/24 Raul Hoyos MD [address] [address] Assigned Neuroscience Provider 05/08/24 07/07/24 Joya Lira [facility] [address] [place] [address] Pharmacist Pharmacist 05/25/24 Joya Lira [facility] [address] [place] [address] Assigned MTM Pharmacist 06/08/24 Fabi Coates MD [address] [place] [address] 75 [place] [address] Genetics, Clinical 06/18/24 Robin Zepeda MD [address] [address] Assigned Neuroscience Provider 07/08/24 08/07/24 Danna Cardenas PA-C 6405 [place] [address] Assigned Heart and Vascular Provider 07/08/24 Fleicita Desai, GEMA Lead Associate Professor Of Art 07/14/24 07/28/24 Arthur Salas [facility] [address] [place] [address] Assigned Behavioral Health Provider 08/08/24 Randy Maradiaga DO 909 [place], [place] 123825 Assigned Neuroscience Provider 08/08/24 Tete Wang MD [address] [place] [address] 761494 Genetics, Clinical 10/30/24 documented as of this encounter
--- OUTSIDE RECORDS SUMMARY | 2024-11-05 13:05 | XMS_ITS | Encounter Summary ---
Author Organization [place] Address [address] [place] [address] Care Team Providers Care Sales Team Recruiter Name Role Phone Winston Villatoro OD Unavailable [phone] Denise Woodson APRN AUTOMOBILE UPHOLSTERER Unavailable [phone] Denise Woodson APRN AUTOMOBILE UPHOLSTERER Primary Care Provider Usha Simon APRN AUTOMOBILE UPHOLSTERER Unavailable + [phone] Dangelo Salinas MD Unavailable Anastasia Stearns RN Unavailable [phone] Germaine Aleman [facility] Unavailable [phone] Lisa Zambrano MD Unavailable + [phone] Raul Hoyos MD Unavailable Joya Lira [facility] Unavailable +[phone] [facility] Unavailable +[phone] Fabi Coates MD Unavailable [phone] Robin Zepeda MD Unavailable [phone] Danna Cardenas PA-C Unavailable +[phone] Felicita Desai RN Unavailable Unavailab Arthur Rios Unavailable +[phone] Randy Maradiaga DO Unavailable + Tete Wang MD Unavailable +[phone] Encounter Details Date Type Department Care Team (Late st Contact Info) Description 05/27/2024 MyC Medical Advice Se [facility] [address], [address] [place] [address] Rohit Barcenas MD 420 [facility] [address] [place] [address] Social History Tobacco Use Types [...] How often do you attend mormonism or congregation serv ices? 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 [place] [phone] Lisa Zambrano MD [address] [place] 814325 12/03/2024 7:00 AM CDT Virtual Visit [facility] Neurology [address] [phone] Randy Maradiaga, [address] 385585 12/09/2024 12:45 PM CDT Office Visit [facility] [address] [place] [phone] Tete Wang MD [address] [place] [address] 785424 12/09/2024 1:15 PM CDT Office Visit [facility] [address] [place] [address] [phone] Tete Wang MD [address] [place] [address] 491454 12/15/2024 3:00 PM CDT Virtual Visit [facility] [address] [place] [address] Chintan Denise, EAP COUNSELOR [facility] [address] [facility] [place], [place] 5208468 01/19/2025 PRE VISIT [facility] Lung Science [address] [phone] Any Joiner MD [address] [place] [address] 714885 *-*INCOMING RECORDS*-* 01/19/2025 3:00 PM CDT Orders Only [facility] Pulmonary Function Testing [address] [place] [phone] 01/19/2025 4:00 PM CDT Office Visit [facility] Lung Science [address] [phone] Any Joiner MD [address] [place] [address] 538975 06/01/2025 11:15 AM CDT Appointment [facility] Center Imaging [address] [facility] [address] [place] [phone] Robin Zepeda MD [address] [place] [address] 06/04/2025 11:00 AM CDT Office Visit [address] [place] [phone] Robin Zepeda MD [address] [place] [address] Usha Simon APRN AUTOMOBILE UPHOLSTERER [address] [address] documented as of this encounter Visit Diagnoses Not on filedocumented in this encounter Additional Health Concerns Infection Onset Date Last Indicated Resolved Time Rule Out COVID-19 09/13/2024 09/13/2024 09/13/2024 12:31 PM OREMAN Assessment Noted Time PHQ-9 Depression Total Score: 5 03/17/20 24 9:45 AM CDT documented as of this encounter Care Teams Sales Team Recruiter Relationship Specialty Start Date End Date Winston Villatoro OD [facility] [place] [address] [place] [address] PCP - Ophthalmology Ophthalmology 02/11/13 Denise Woodson APRN AUTOMOBILE UPHOLSTERER [address] [place] [address] PCP - General Family Practice 09/21/20 Denise Woodson APRN AUTOMOBILE UPHOLSTERER [address] [place] [address] Assigned PCP 07/17/20 Usha Simon APRN AUTOMOBILE UPHOLSTERER [address] [place] [address] Nurse Practitioner Neurological Surgery 01/24/24 Dangelo Salinas MD [address] [id number] Neurology 01/27/24 Anastasia Stearns, RN Lead C Architect 02/06/24 Germaine Aleman, CHW Community Health Worker Primary Care - CC 02/18/24 Lisa Zambrano MD 6405 [facility] [place] [address] Assigned Heart and Vascular Provider 05/08/24 07/07/24 Raul Hoyos MD [address] [address] Assigned Neuroscience Provider 05/08/24 07/07/[address] [facility] [address] [place] [address] Pharmacist Pharmacist 05/25/[address] [facility] [address] [place] [address] Assigned MTM Pharmacist 06/08/24 Fabi Coates MD [address] [place] [address] 75 [place] [address] Genetics, Clinical 06/18/24 Robin Zepeda MD [address] [address] Assigned Neuroscience Provider 07/08/24 08/07/24 Danna Cardenas PA-C 6405 [place] [address] Assigned Heart and Vascular Provider 07/08/24 Felicita Desai, GEMA Lead C Architect 07/14/24 07/28/24 Arthur Salas [facility] [address] [place] [address] Assigned Behavioral Health Provider 08/08/24 Randy Maradiaga DO 909 [place], [place] 096725 Assigned Neuroscience Provider 08/08/24 Tete Wang MD [address] [place] [address] 355104 Genetics, Clinical 10/30/24 documented as of this encounter
--- OUTSIDE RECORDS SUMMARY | 2024-11-05 13:06 | XMS_ITS | Encounter Summary ---
Author Organization [place] Address [address] [place] [address] Care Team Providers Care Laborer Mine Name Role Phone Winston Villatoro OD Unavailable [phone] Denise Woodson APRN BUILDING CARPENTER HELPER Unavailable [phone] Denise Woodson APRN BUILDING CARPENTER HELPER Primary Care Provider Usha Simon APRN BUILDING CARPENTER HELPER Unavailable + [phone] Dangelo Salinas MD Unavailable Anastasia Stearns RN Unavailable Germaine Aleman [facility] Unavailable [phone] Lisa Zambrano MD Unavailable + [phone] Raul Hoyos MD Unavailable Joya Lira [facility] Unavailable [phone] Joya Lira [facility] Unavailable [phone] Fabi Coates MD Unavailable [phone] Robin Zepeda MD Unavailable [phone] Danna Cardenas PA-C Unavailable [phone] Felicita Desai RN Unavailable Unavailab Arthur Rois Unavailable +[phone] Randy Maradiaga DO Unavailable + Tete Wang MD Unavailable [phone] Encounter Details Date Type Department Care Team (Late st Contact Info) Description 05/12/2024 Telephone [facility] [address] [place] [address] Denise Woodson INTERVENTION ANALYST [facility] [address] [place] [address] Social History Tobacco Use Types [...] How often do you attend voodoo or gnosticism serv ices? 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 Forms was placed in the provider basket for review and sign. Anastasia Velasquez Php Mysql Developer [facility] * Telephone Encounter - Anastasia Abad - 05/20/2024 11:01 AM CDT Kaleb with [employer] calling to inquire if short term disability forms were received. Will Re-send the Forms. Forms were not in the provider's basket, nor was there an encounter statingthe provider received/signed the form. Anastasia Velasquez Php Mysql Developer [facility] * Telephone Encounter - Donald Newman - 05/12/2024 4:28 PM CDT Forms/Letter Request Type of form/letter: OTHER: FORMS from ([employer]) Do we have the form/letter: Yes: In the Dr's in basket at front end engineer Who is the form from? [employer] Where did/will the form come from? form was faxed in When is form/letter needed by: [facility] How would you like the form/letter returned: Patient Notified form requests are processed in 5-7 business days:No Could we send this information to you in [facility] or would you prefer to receive a phone call?: No preference Okay to leave a detailed message?: No at Other phone number: FAX: [phone] documented in this encounter Plan of Treatment Upcoming Encounters Date Type Department Care Team (Late st Contact Info) Description 11/06/2024 12:00 PM ASSOCIATE FINANCIAL REPRESENTATIVE Virtual Visit [facility] [address] [place] [phone] Denise Woodson, BARRERA BUILDING CARPENTER HELPER [address] [facility] [place] [place] [phone] 12/01/2024 4:00 PM CDT Virtual Visit [facility] [place] [address] [place] [phone] Lisa Zambrano MD [address] [place] [address] 12/03/2024 7:00 AM CDT Virtual Visit [facility] Neurology [address] [phone] Randy Maradiaga [address] 420[address] 12/09/2024 12:45 PM CDT Office Visit [facility] [address] [place] [phone] Tete Wang MD [address] [place] [address] 12/09/2024 1:15 PM CDT Office Visit [facility] [address] [place] [address] [phone] Tete Wang MD [address] [place] [address] 048674 12/15/2024 3:00 PM CDT Virtual Visit [facility] [address] [place] [phone] Denise Woodson APRN BUILDING CARPENTER HELPER [address] [place] [address] 01/19/2025 PRE VISIT [facility] Science [address] [phone] Any Joiner MD [address] [place] [address] 313795 *-*INCOMING RECORDS*-* 01/19/2025 3:00 PM CDT Orders Only [facility] Pulmonary Function Testing [address] [place] [address] 01/19/2025 4:00 PM CDT Office Visit [facility] Science [address] [phone] Any Joiner MD [address] [place] [address] [phone] 06/01/2025 11:15 AM CDT Appointment [facility] Care Center Imaging [address] [facility] [address] [place] [address] Robin Zepeda MD [address] [place] [address] 777315 06/04/2025 11:00 AM CDT Office Visit [facility] Neurosurgery [address] [phone] Robin Zepeda MD [address] [place] [address] Usha Simon APRN [address] 099385 documented as of this encounter Visit Diagnoses Not on filedocumented in this encounter Additional Health Concerns Infection Onset Date Last Indicated Resolved Time Rule Out COVID-19 09/13/2024 09/13/2024 09/13/2024 12:31 PM ASSOCIATE FINANCIAL REPRESENTATIVE Assessment Noted Time PHQ-9 Depression Total Score: 5 03/17/20 24 9:45 AM CDT documented as of this encounter Care Teams Laborer Mine Relationship Specialty Start Date End Date Winston Villatoro OD [facility] [place] [address] [place] [address] PCP - Ophthalmology Ophthalmology 02/11/13 Denise Woodson APRN BUILDING CARPENTER HELPER [address] [place] [address] PCP - General Family Practice 09/21/20 Denise Woodson APRN BUILDING CARPENTER HELPER [address] [place] [address] Assigned PCP 07/17/20 Usha Simon APRN BUILDING CARPENTER HELPER 909 [facility]121[place], [place] 213315 Nurse Practitioner Neurological Surgery 01/24/24 Dangelo Salinas MD [address] [place], [place] [phone] Neurology 01/27/24 Anastasia Stearns, RN Lead Margin Analyst 02/06/24 Germaine [place], W Community Health Worker Primary Care - CC 02/18/24 Lisa Zambrano MD [address] [place] 103565 Assigned Heart and Vascular Provider 05/08/24 07/07/24 Raul Hoyos MD 909 [facility]121[place] [address] Assigned Neuroscience Provider 05/08/24 07/07/24 Joya Lira [facility] [address] [place] [address] Pharmacist Pharmacist 05/25/24 Joya Lira [facility] [address] [place] [address] Assigned MTM Pharmacist 06/08/24 Fabi Coates MD [address] [place] [address] 75 [place] [address] Genetics, Clinical 06/18/24 Robin Zepeda MD 909 [facility]121[place] [address] Assigned Neuroscience Provider 07/08/24 08/07/24 Danna Cardenas PA-C 6405 [place] [address] Assigned Heart and Vascular Provider 07/08/24 Felicita Desai RN Lead Margin Analyst 07/14/24 07/28/24 Arthur Salas [facility] [address] [address] Assigned Behavioral Health Provider 08/08/24 Randy Maradiaga DO 909 [place] [address] Assigned Neuroscience Provider 08/08/24 Tete Wang MD 2450 [place] [address] Genetics, Clinical 10/30/24 documented as of this encounter
--- OUTSIDE RECORDS SUMMARY | 2024-11-05 13:06 | XMS_ITS | Encounter Summary ---
Author Organization [place] Address [address] [place] [address] Care Team Providers Care Buhr Mill Operator Name Role Phone Winston Villatoro OD Unavailable [phone] Denise Woodson APRN WALLPAPER HANGER HELPER Unavailable [phone] Denise Woodson APRN WALLPAPER HANGER HELPER Primary Care Provider Usha Simon APRN WALLPAPER HANGER HELPER Unavailable + [phone] Dangelo Salinas MD Unavailable Anastasia Stearns RN Unavailable [phone] Germaine Aleman [facility] Unavailable [phone] Joya Lira [facility] Unavailable Joya Lira [facility] Unavailable [phone] Fabi Coates MD Unavailable [phone] Danna Cardenas PA-C Unavailable [phone] Arthur Salas [facility] Unavailable [phone] Randy Maradiaga DO Unavailable + Encounter Details Date Type Department Care Team (Late st Contact Info) Description 10/14/2024 Telephone [facility] [address] [place] [address] Denise Woodson APRN WALLPAPER HANGER HELPER [address] [place] [address] Social History Tobacco Use Types Packs/Day Years [...] Never 09/16/2024 How often do you attend alevism or anglican serv ices? 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 Appointment had to be cancelled. This is a return to work follow-up. She is asking if she can be seen soon. Please advise if we can use a Same Day to move her appointment up. Nicolasa Badillo [employer] Sales Associate NT AGENT documented in this encounter Plan of Treatment Upcoming Encounters Date Type Department Care Team (Late st Contact Info) Description 11/06/2024 12:00 PM TALENT AGENT Virtual Visit [facility] [address] [place] [phone] Denise Woodson APRN [facility] [address] [place], [place] [phone] 12/01/2024 4:00 PM CDT Virtual Visit [facility] Vascular [facility] [address] [place] [phone] Lisa Zambrano MD [address] [place], [place] 1045[address] 12/03/2024 7:00 AM CDT Virtual Visit [facility] Neurology Clinic [address] [phone] Randy Maradiaga, [address] [place] [address] 013755 12/09/2024 12:45 PM CDT Office Visit [facility] [address] [place] [address] [phone] Tete Wang MD [address] [place] [address] 039114 12/09/2024 1:15 PM CDT Office Visit [facility] Pediatric Specialty Clinic [address] [place], [place] [address] [address] [phone] Tete Wang MD 2450 [place] [address] 12/15/2024 3:00 PM CDT Virtual Visit [facility] [address] [place] [phone] Denise Woodson APRN WALLPAPER HANGER HELPER [address] [place] [address] 01/19/2025 PRE VISIT [facility] Lung Science [address] [phone] Any Joiner MD [address] [place] [address] 121325 *-*INCOMING RECORDS*-* 01/19/2025 3:00 PM CDT Orders Only [facility] Pulmonary Function Testing [address] [place] [phone] 01/19/2025 4:00 PM CDT Office Visit [facility] Science [address] [phone] Any Joiner MD [address] [place] [address] [phone] 06/01/2025 11:15 AM CDT Appointment [facility] Specialty Care Center Imaging [address] [place] [address] [place] [address] Robin Zepeda MD [address] [place] [address] [id number] [place] [address] 06/04/2025 11:00 AM CDT Office Visit [facility] [address] [place] [phone] Robin Zepeda MD [address] [address] Usha Simon APRN WALLPAPER HANGER HELPER [address] [address] documented as of this encounter Visit Diagnoses Not on filedocumented in this encounter Additional Health Concerns Assessment Noted Time PHQ-9 Depression Total Score: 0 09/18/19 25 12:46 PM TALENT AGENT documented as of this encounter Care Teams Buhr Mill Operator Relationship Specialty Start Date End Date Winston Villatoro OD [facility] [place] [address] [place] [address] PCP - Ophthalmology Ophthalmology 02/11/13 Denise Woodson APRN WALLPAPER HANGER HELPER [address] [place] [address] PCP - General Family Practice 09/21/20 Denise Woodson APRN WALLPAPER HANGER HELPER [address] [place] [address] Assigned PCP 07/17/20 Usha Simon APRN WALLPAPER HANGER HELPER [address] [place] [address] Nurse Practitioner Neurological Surgery 01/24/24 Dangelo Salinas MD [address] [id number] Neurology 01/27/24 Anastasia Stearns, RN Lead Tobacco Classer 02/06/24 Germaine Aleman, CHW Community Health Worker Primary Care - CC 02/18/24 Joya Lira [facility] [address] [place] [address] Pharmacist Pharmacist 05/25/24 Joya Lira [facility] [address] [place] [address] Assigned MTM Pharmacist 06/08/24 Fabi Coates MD [address] [place] [address] 75 [place], [place] 399295 Genetics, Clinical 06/18/24 Danna Cardenas PA-C 6405 [place] [address] Assigned Heart and Vascular Provider 07/08/24 Arthur Salas [facility] [address] [id number] Assigned Behavioral Health Provider 08/08/24 Randy Maradiaga DO 909 [place], [place] 280485 Assigned Neuroscience Provider 08/08/24 documented as of this encounter
--- OUTSIDE RECORDS SUMMARY | 2024-11-05 13:06 | XMS_ITS | Encounter Summary ---
Author Organization [place] Address [address] [place] [address] Care Team Providers Care Payroll Benefits Clerk Name Role Phone Winston Villatoro OD Unavailable +[phone] Denise Woodson APRN DATABASE SECURITY EXPERT Unavailable +[phone] Denise Woodson APRN DATABASE SECURITY EXPERT Primary Care Provider Usha Simon APRN DATABASE SECURITY EXPERT Unavailable + [phone] Dangelo Salinas MD Unavailable Anastasia Stearns RN Unavailable Germaine Aleman CH Unavailable [phone] Robin Zepeda MD Unavailable [phone] Lisa Zambrano MD Unavailable Raul Hoyos MD Unavailable Joya Lira RP Unavailable [phone] Joya Lira RPJoleen Unavailable +[phone] Fabi Coates MD Unavailable [phone] Robin Zepeda MD Unavailable Danna CardenasC Unavailable [phone] Felicita Desai RN Unavailable Unavailab Arthur Rios Unavailable +[phone] Randy Maradiaga DO Unavailable + Tete Wang MD Unavailable +[phone] Encounter Details Date Type Department Care Team (Late st Contact Info) Description 04/02/2024 MyC Medical Advice [facility] Neurology Clinic [address] 3rd [place] [address] Liliane Cobos Social History Tobacco [...] How often do you attend rastafarian or sikh serv ices? Never 02/28/2024 Do [...] Date Recorded PHQ-2 Score 0 03/17/2024 [facility] [place] of Occupat ional Health - Occupational Stress [...] on file Legal Sex Female 4:05 AM SMOKING PIPE MAKER Gender Identity Not on file Sexual [...] st Contact Info) Description 11/06/2024 12:00 PM SMOKING PIPE MAKER Virtual Visit [facility] [address] [place] [address] Denise Woodson APRN DATABASE SECURITY EXPERT [id number] [facility] [place], [place] 1286568 12/01/2024 4:00 PM CDT Virtual Visit [facility] Vascular Clinic [place] [address] [place] [phone] Lisa Zambrano MD [address] [place] 630035 12/03/2024 7:00 AM CDT Virtual Visit [facility] Neurology [address] [phone] Randy Maradiaga, [address] [address] 12/09/2024 12:45 PM CDT Office Visit [facility] [address] [place] [address] [phone] Tete Wang MD [address] [place] [address] 946134 12/09/2024 1:15 PM CDT Office Visit [facility] Pediatric Specialty Clinic [address] [place] [address] [phone] Tete Wang MD [address] [place] [address] 017984 12/15/2024 3:00 PM CDT Virtual Visit [facility] [address] [place] [address] Denise Woodson APRN DATABASE SECURITY EXPERT [address] [place], [place] [id number] 01/19/2025 PRE VISIT [facility] Lung Science [address] [phone] Any Joiner MD [address] [place] [address] 907285 *-*INCOMING RECORDS*-* 01/19/2025 3:00 PM CDT Orders Only [facility] Pulmonary Function Testing [address] [phone] 01/19/2025 4:00 PM CDT Office Visit [facility] Lung Science [address] [phone] Any Joiner MD [address] [place] [address] 164235 06/01/2025 11:15 AM CDT Appointment [facility] Imaging [address] [facility] [address] [place] [address] Robin Zepeda MD [address] [place] [address] 518435 06/04/2025 11:00 AM CDT Office Visit [address] [phone] Robin Zepeda MD [address] [place] [address] 310095 Usha Simon APRN DATABASE SECURITY EXPERT [id number] [place] [address] documented as of this encounter Visit Diagnoses Not on filedocumented in this encounter Additional Health Concerns Infection Onset Date Last Indicated Resolved Time Rule Out COVID-19 09/13/2024 09/13/2024 09/13/2024 12:31 PM SMOKING PIPE MAKER Assessment Noted Time PHQ-9 Depression Total Score: 5 03/17/20 24 9:45 AM CDT documented as of this encounter Care Teams Payroll Benefits Clerk Relationship Specialty Start Date End Date Winston Villatoro OD [facility] [address] [facility] [address] [place] [address] PCP - Ophthalmology Ophthalmology 02/11/13 Denise Woodson APRN DATABASE SECURITY EXPERT [address] [place] [address] PCP - General Family Practice 09/21/20 Denise Woodson APRN DATABASE SECURITY EXPERT [address] [place] [address] Assigned PCP 07/17/20 Usha Simon APRN DATABASE SECURITY EXPERT [address] [address] Nurse Practitioner Neurological Surgery 01/24/24 Dangelo Salinas MD [address] [place] [address] Neurology 01/27/24 Anastasia Stearns, RN Lead Advertising Solicitor 02/06/24 Germaine Aleman, CHW Community Health Worker Primary Care - CC 02/18/24 Robin Zepeda MD [address] [address] Assigned Neuroscience Provider 03/08/24 05/07/24 Lisa Zambrano MD 6405 [facility] [address] [place] [address] Assigned Heart and Vascular Provider 05/08/24 07/07/24 Raul Hoyos MD [address] [place] [address] Assigned Neuroscience Provider 05/08/24 07/07/24 Joya Lira [facility] [address] [place] [address] Pharmacist Pharmacist 05/25/24 Joya Lira [facility] [address] [place] [address] Assigned MTM Pharmacist 06/08/24 Fabi Coates MD [address] [place] [address] 75 [place] [address] Genetics, Clinical 06/18/24 Robin Zepeda MD [address] [place] [address] Assigned Neuroscience Provider 07/08/24 08/07/24 Danna Cardenas PA-C 6405 [place] [address] Assigned Heart and Vascular Provider 07/08/24 Felicita Desai, RN Lead Advertising Solicitor 07/14/24 07/28/24 Arthur Salas, [facility] [address] [place] [address] Assigned Behavioral Health Provider 08/08/24 Randy Maradiaga DO 909 [place], [place] 857115 Assigned Neuroscience Provider 08/08/24 Tete Wang MD 2450 [place], [place] 779444 Genetics, Clinical 10/30/24 documented as of this encounter
--- OUTSIDE RECORDS SUMMARY | 2024-11-05 13:06 | XMS_ITS | Encounter Summary ---
Author Organization [place] Address [address] [place] [address] Care Team Providers Care Drier Transfer Car Operator Name Role Phone Winston Villatoro OD Unavailable [phone] Denise Woodson APRN DOCUMENT RESTORER Unavailable [phone] Denise Woodson APRN DOCUMENT RESTORER Primary Care Provider Usha Simon APRN DOCUMENT RESTORER Unavailable + [phone] Dangelo Salinas MD Unavailable Anastasia Stearns RN Unavailable Germaine Aleman [facility] Unavailable [phone] Lisa Zambrano MD Unavailable + [phone] Raul Hoyos MD Unavailable [phone] Joya Lira [facility] Unavailable [phone] Joya Lira [facility] Unavailable [phone] Fabi Coates MD Unavailable [phone] Robin Zepeda MD Unavailable [phone] Danna Cardenas PA-C Unavailable +[phone] Felicita Desai RN Unavailable Unavailab Arthur Rios Unavailable [phone] Randy Maradiaga DO Unavailable + Tete Wang MD Unavailable Encounter Details Date Type Department Care Team (Late st Contact Info) Description 05/21/2024 MyC Medical Advice [facility] [address] [place] [address] Qing Copeland Social History Tobacco [...] How often do you attend samaritan or baptism serv ices? 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 [place] [phone] Lisa Zambrano MD [address] [place] 055225 12/03/2024 7:00 AM CDT Virtual Visit [facility] Neurology [address] [phone] Randy Maradiaga, [address] [address] 12/09/2024 12:45 PM CDT Office Visit [facility] [address] [place] [phone] Tete Wang MD [address] [place] [address] 12/09/2024 1:15 PM CDT Office Visit [facility] [address] [place] [address] [phone] Tete Wang MD [address] [place] [address] 12/15/2024 3:00 PM CDT Virtual Visit [facility] [address] [place] [phone] Denise Woodson APRN DOCUMENT RESTORER [address] [place], [place] 5646268 01/19/2025 PRE VISIT [facility] Lung Science [address] [phone] Any Joiner MD [address] [place] [address] 690965 *-*INCOMING RECORDS*-* 01/19/2025 3:00 PM CDT Orders Only [facility] Pulmonary Function Testing [address] [phone] 01/19/2025 4:00 PM CDT Office Visit [facility] Lung Science [address] [phone] Any Joiner MD [address] [place] [address] 076685 06/01/2025 11:15 AM CDT Appointment [facility] Imaging [address] [facility] [address] [place] [phone] Robin Zepeda MD [address] [place] [address] 254715 06/04/2025 11:00 AM CDT Office Visit [address] [phone] Robin Zepeda MD [address] [place] [address] 825925 Usha Simon APRN DOCUMENT RESTORER [address] [place] [address] documented as of this encounter Visit Diagnoses Not on filedocumented in this encounter Additional Health Concerns Infection Onset Date Last Indicated Resolved Time Rule Out COVID-19 09/13/2024 09/13/2024 09/13/2024 12:31 PM CHIEF PHARMACIST Assessment Noted Time PHQ-9 Depression Total Score: 5 03/17/20 24 9:45 AM CDT documented as of this encounter Care Teams Drier Transfer Car Operator Relationship Specialty Start Date End Date Winston Villatoro OD [facility] [place] [address] [place] [address] PCP - Ophthalmology Ophthalmology 02/11/13 Denise Woodson APRN DOCUMENT RESTORER [address] [place] [address] PCP - General Family Practice 09/21/20 Denise Woodson APRN DOCUMENT RESTORER [address] [place] [address] Assigned PCP 07/17/20 Usha Simon APRN DOCUMENT RESTORER 909 [facility] [id number] [address] Nurse Practitioner Neurological Surgery 01/24/24 Dangelo Salinas MD [address] [place] [address] Neurology 01/27/24 Anastasia Stearns, RN Lead Business Practices Supervisor 02/06/24 Germaine Aleman, CHW Community Health Worker Primary Care - CC 02/18/24 Lisa Zambrano MD 6408 [facility] [address] [place] [address] Assigned Heart and Vascular Provider 05/08/24 07/07/24 Raul Hoyos MD 909 [facility] [place] [address] Assigned Neuroscience Provider 05/08/24 07/07/24 Joya Lira [facility] [address] [place] [address] Pharmacist Pharmacist 05/25/24 Joya Lira [facility] [address] [place] [address] Assigned MTM Pharmacist 06/08/24 Fabi Coates MD [address] [place] [address] 75 [place] [address] Genetics, Clinical 06/18/24 Robin Zepeda MD [address] [place]21[place], [place] [address] Assigned Neuroscience Provider 07/08/24 08/07/24 Danna Cardenas PA-C 6405 [place] [address] Assigned Heart and Vascular Provider 07/08/24 Felicita Desai, RN Lead Business Practices Supervisor 07/14/24 07/28/24 Arthur Salas, [facility] [address] [place] [address] Assigned Behavioral Health Provider 08/08/24 Randy Maradiaga DO 909 [place] [address] Assigned Neuroscience Provider 08/08/24 Tete Wang MD 2450 [place] [address] Genetics, Clinical 10/30/24 documented as of this encounter
--- OUTSIDE RECORDS SUMMARY | 2024-11-05 13:06 | XMS_ITS | Encounter Summary ---
Author Organization [place] Address [address] [place] [address] Care Team Providers Care Fixed Income Director Name Role Phone Winston Villatoro OD Unavailable [phone] Denise Woodson APRN DIRECTOR PHARMACOVIGILANCE Unavailable [phone] Denise Woodson APRN DIRECTOR PHARMACOVIGILANCE Primary Care Provider Usha Simon APRN DIRECTOR PHARMACOVIGILANCE Unavailable + [phone] Dangelo Salinas MD Unavailable Anastasia Stearns RN Unavailable [phone] Germaine Aleman CH Unavailable +[phone] Robin Zepeda MD Unavailable Lisa Zambrano MD Unavailable Raul Hoyos MD Unavailable Joya Lira RP Unavailable [phone] Joya Lira RPJoleen Unavailable Fabi Coates MD Unavailable [phone] Robin Zepeda MD Unavailable Danna CardenasC Unavailable +[phone] Felicita Desai RN Unavailable Unavailab Arthur Rios Unavailable +[phone] Ashwini Randy Yobany DO Unavailable + Tete Wang MD Unavailable [...] How often do you attend shinto or pentecostalism serv ices? Never 02/28/2024 Do [...] Answer Date Recorded PHQ-2 Score 0 03/17/2024 [facility] [place] of Occupat ional Health - Occupational Stress [...] Date Recorded Do you have housing? (Valerie wnikler is defined as stable permanent housing and [...] file Legal Sex Female 4:05 AM MACHINE CLOTH EXAMINER Gender Identity Not on file Sexual Orientation Not on file Occupation Industry Job Start Date Job End Date [employer] Not on file Not on file Not on file Not on file Not on file Not on file Not on file documented as of this encounter Plan of Treatment Upcoming Encounters Date Type Department Care Team (Late st Contact Info) Description 11/06/2024 12:00 PM MACHINE CLOTH EXAMINER Virtual Visit [facility] [address] [place] [phone] Denise Woodson APRN [facility] [address] [place], [place] 8858668 12/01/2024 4:00 PM CDT Virtual Visit [facility] Vascular Clinic [place] [address] [place] [phone] Lisa Zambrano MD [address] [place] [address]685 12/03/2024 7:00 AM CDT Virtual Visit [facility] Neurology [address] [phone] Randy Maradiaga, [address] [address] 12/09/2024 12:45 PM CDT Office Visit [facility] [address] [place] [address] [phone] Tete Wang MD [address] [place] [address] 12/09/2024 1:15 PM CDT Office Visit [facility] [address] [place] [address] [phone] Tete Wang MD [address] [place] [address] 465934 12/15/2024 3:00 PM CDT Virtual Visit [facility] [address] [place] [phone] Denise Woodson APRN DIRECTOR PHARMACOVIGILANCE [address] [place] [address] 01/19/2025 PRE VISIT [facility] Lung Science [address] [phone] Any Joiner MD [address] [place] [address] 739565 *-*INCOMING RECORDS*-* 01/19/2025 3:00 PM CDT Orders Only [facility] Pulmonary Function Testing [address] [phone] 01/19/2025 4:00 PM CDT Office Visit [facility] Lung Science [address] [phone] Any Joiner MD [address] [place] [address] 329565 06/01/2025 11:15 AM CDT Appointment [facility] [address] [facility] [address] [place] [phone] Robin Zepeda MD [address] [place] [address] 081365 06/04/2025 11:00 AM CDT Office Visit [address] [phone] Robin Zepeda MD [address] [place] [address] 827715 Usha Simon APRN DIRECTOR PHARMACOVIGILANCE [address] [place] [address] 131315 documented as of this encounter Visit Diagnoses Not on filedocumented in this encounter Additional Health Concerns Infection Onset Date Last Indicated Resolved Time Rule Out COVID-19 09/13/2024 09/13/2024 09/13/2024 12:31 PM MACHINE CLOTH EXAMINER Assessment Noted Time PHQ-9 Depression Total Score: 5 03/17/20 24 9:45 AM CDT documented as of this encounter Care Teams Fixed Income Director Relationship Specialty Start Date End Date Winston Villatoro OD [facility] [place] [address] [place] [address] PCP - Ophthalmology Ophthalmology 02/11/13 Denise Woodson APRN DIRECTOR PHARMACOVIGILANCE [address] [place] [address] PCP - General Family Practice 09/21/20 Denise Woodson APRN DIRECTOR PHARMACOVIGILANCE [address] [place] [address] Assigned PCP 07/17/20 Usha Simon APRN DIRECTOR PHARMACOVIGILANCE [address] [address] Nurse Practitioner Neurological Surgery 01/24/24 Dangelo Salinas MD [address] [place] [address] Neurology 01/27/24 Anastasia Stearns, RN Lead Director Clinical Applications 02/06/24 Germaine Aleman, CHW Community Health Worker Primary Care - CC 02/18/24 Robin Zepeda MD [address] [place] [address], [place] [address] Assigned Neuroscience Provider 03/08/24 05/07/24 Lisa Zambrano MD 6405 [facility] [address] [place] [address] Assigned Heart and Vascular Provider 05/08/24 07/07/24 Raul Hoyos MD [address] [address] Assigned Neuroscience Provider 05/08/24 07/07/24 Joya Lira [facility] [address] [place] [address] Pharmacist Pharmacist 05/25/24 Joya Lira [facility] [address] [place] [address] Assigned MTM Pharmacist 06/08/24 Fabi Coates MD [address] [place] [address] 75 [place] [address] Genetics, Clinical 06/18/24 Robin Zepeda MD [address] 1625921[place] [address] Assigned Neuroscience Provider 07/08/24 08/07/24 Danna Cardenas PA-C 6405 [place] [address] Assigned Heart and Vascular Provider 07/08/24 Lloyd, Felicita M, RN Lead Director Clinical Applications 07/14/24 07/28/24 Arthur Salas, [facility] [address] [place] [address] Assigned Behavioral Health Provider 08/08/24 Randy Maradiaga DO [address] [place] [address] 892035 Assigned Neuroscience Provider 08/08/24 Tete Wang MD 2450 [place], [place] 546264 Genetics, Clinical 10/30/24 documented as of this encounter
--- OUTSIDE RECORDS SUMMARY | 2024-11-05 13:06 | XMS_ITS | Encounter Summary ---
Author Organization [place] Address [address] [place] [address] Care Team Providers Care Principal Clerk Name Role Phone Winston Villatoro OD Unavailable [phone] Denise Woodson APRN PIGMENT FURNACE TENDER Unavailable [phone] Denise Woodson APRN PIGMENT FURNACE TENDER Primary Care Provider Usha Simon APRN PIGMENT FURNACE TENDER Unavailable + [phone] Dangelo Salinas MD Unavailable Anastasia Stearns RN Unavailable [phone] Germaine Aleman [facility] Unavailable [phone] Lisa Zambrano MD Unavailable + [phone] Raul Hoyos MD Unavailable Joya Lira [facility] Unavailable [phone] Joya Lira [facility] Unavailable [phone] Fabi Coates MD Unavailable [phone] Robin Zepeda MD Unavailable [phone] Danna Cardenas PA-C Unavailable +[phone] Felicita Desai RN Unavailable Unavailab Arthur Rios Unavailable +[phone] Randy Maradiaga DO Unavailable + Tete Wang [...] How often do you attend temple or jainism serv ices? Never 02/28/2024 Do [...] Answer Date Recorded PHQ-2 Score 2 05/05/2024 [facility] of Occupat ional [...] in an overnight long-term, or couch-surfing.) Yes 05/16/2024 Are you worried [...] file Legal Sex Female 4:05 AM BUILDING ILLUMINATING ENGINEER Gender Identity Not on file Sexual [...] st Contact Info) Description 11/06/2024 12:00 PM BUILDING ILLUMINATING ENGINEER Virtual Visit [facility] [address] [place] [phone] Denise Woodson APRN PIGMENT FURNACE TENDER [address] [place] [address] 12/01/2024 4:00 PM CDT Virtual Visit [facility] [place] [address] [place] [phone] Lisa Zambrano MD [address] [place] [address] 12/03/2024 7:00 AM CDT Virtual Visit [facility] Neurology [address] [phone] Randy Maradiaga [address] 08[address] 12/09/2024 12:45 PM CDT Office Visit [facility] [address] [place] [address] [phone] Tete Wang MD [address] [place] [address] 12/09/2024 1:15 PM CDT Office Visit [facility] [address] [place] [address] [phone] Tete Wang MD [address] [place] [address] 401[address] 12/15/2024 3:00 PM CDT Virtual Visit [facility] [address] [facility] [phone] Denise Woodson APRN PIGMENT FURNACE TENDER [address] [facility] [place] [address] 01/19/2025 PRE VISIT [facility] [address] [phone] Any Joiner MD [address] [place] [address]05 *-*INCOMING RECORDS*-* 01/19/2025 3:00 PM CDT Orders Only [facility] Pulmonary Function Testing [address] [place] [address] 01/19/2025 4:00 PM CDT Office Visit [facility] [address] [phone] Any Joiner MD [address] [place] [address] [phone] 06/01/2025 11:[address] [facility] Imaging [address] [place] [place] [address] Robin Zepeda MD [address] [place] [address] 364135 06/04/2025 11:00 AM CDT Office Visit [facility] Neurosurgery [address] [phone] Robin Zepeda MD [address] [place] [address] Usha Simon APRN [address] 079195 documented as of this encounter Visit Diagnoses Not on filedocumented in this encounter Additional Health Concerns Infection Onset Date Last Indicated Resolved Time Rule Out COVID-19 09/13/2024 09/13/2024 09/13/2024 12:31 PM BUILDING ILLUMINATING ENGINEER Assessment Noted Time PHQ-9 Depression Total Score: 5 03/17/20 24 9:45 AM CDT documented as of this encounter Care Teams Principal Clerk Relationship Specialty Start Date End Date Winston Villatoro OD [facility] [place] [address] [place] [address] PCP - Ophthalmology Ophthalmology 02/11/13 Denise Woodson APRN PIGMENT FURNACE TENDER [address] [place] [address] PCP - General Family Practice 09/21/20 Denise Woodson APRN PIGMENT FURNACE TENDER [address] [place] [address] Assigned PCP 07/17/20 Usha Simon APRN PIGMENT FURNACE TENDER 909 [facility]121[place], [place] [address] Nurse Practitioner Neurological Surgery 01/24/24 Dangelo Salinas MD [address] [place], [place] [phone] Neurology 01/27/24 Anastasia Stearns, RN Lead Assurance Associate 02/06/24 Germaine Aleman, CHW Community Health Worker Primary Care - CC 02/18/24 Lisa Zambrano MD [address] [place] [address] Assigned Heart and Vascular Provider 05/08/24 07/07/24 Raul Hoyos MD 909 [facility]121[address] [place] [address] Assigned Neuroscience Provider 05/08/24 07/07/24 Joya Lira [facility] [address] [place] [address] Pharmacist Pharmacist 05/25/24 Joya Lira [facility] [address] [place] [address] Assigned MTM Pharmacist 06/08/24 Fabi Coates MD [address] [place] [address] 75 [place] [address] Genetics, Clinical 06/18/24 Robin Zepeda MD 909 [facility] [address] Assigned Neuroscience Provider 07/08/24 08/07/24 Danna Cardenas PA-C 6405 [place] [address] Assigned Heart and Vascular Provider 07/08/24 Felicita Desai, GEMA Lead Assurance Associate 07/14/24 07/28/24 Arthur Salas [facility] [address] [place] [address] [address] Assigned Behavioral Health Provider 08/08/24 Randy Maradiaga DO 909 [place] [address] Assigned Neuroscience Provider 08/08/24 Tete Wang MD 2450 [place], [place] 766244 Genetics, Clinical 10/30/24 documented as of this encounter
--- OUTSIDE RECORDS SUMMARY | 2024-11-05 13:06 | XMS_ITS | Encounter Summary ---
Author Organization [place] Address [address] [place] [address] Care Team Providers Care [employer] Factory Worker Name Role Phone Yung Madrigal MD Unavailable Unavailable Winston Villatoro OD Unavailable [phone] Denise Woodson APRN DEPUTY SHERIFF GENERALIST/BAILIFF Unavailable [phone] Denise Woodson APRN DEPUTY SHERIFF GENERALIST/BAILIFF Primary Care Provider Usha Simon APRN DEPUTY SHERIFF GENERALIST/BAILIFF Unavailable [phone] Dangelo Salinas MD Unavailable Usha Simon APRN DEPUTY SHERIFF GENERALIST/BAILIFF Unavailable Anastasia Stearns RN Unavailable [phone] Germaine Aleman [facility] Unavailable [phone] Robin Zepeda MD Unavailable Lisa Zambrano MD Unavailable Raul Hoyos MD Unavailable Joya Lira [facility] Unavailable Joya Lira J[place] Unavailable Fabi Coates MD Unavailable [phone] Robin Zepeda MD Unavailable Danna Cardenas PA-C Unavailable Felicita Desai RN Unavailable Unavailab Arthur Rios Unavailable [phone] Randy Maradiaga DO Unavailable + Tete Wang MD Unavailable [phone] Reason for Visit * Reason Comments Medication Refill Encounter Details Date Type Department Care Team (Late st Contact Info) Description [facility]/07[facility] [address] [place] [address] Denise Woodson, [facility] [address] [place] [address] Medication Refill Social History Tobacco [...] on file Legal Sex Female 4:05 AM ED MANAGER Gender Identity Not on file Sexual Orientation Not on file 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 Karla Velasquez Engagement Manager * Telephone Encounter - Karla Morales - 01/17/2023 8:59 AM CDT LVM requesting a call back for an appt (physical). One more attempt will be made. Karla Velasquez Engagement Manager * Telephone Encounter - Arianna Lo - 01/10/2023 3:33 PM CDT Sent Hashtrack message requesting a call back for an appt. Two more attempts will be made. Arianna Lo [place] Engagement Manager * Telephone Encounter - Leslie Mcclellan, RN [...] 0 0 0 Leslie Mcclellan RN, BSN [facility] documented in this encounter Plan of Treatment Upcoming Encounters Date Type Department Care Team (Late st Contact Info) Description 11/06/2024 12:00 PM ED MANAGER Virtual Visit [facility] [address] [place] [phone] Denise Woodson APRN DEPUTY SHERIFF GENERALIST/BAILIFF [address] [place] [address] 12/01/2024 4:00 PM CDT Virtual Visit [facility] [place] [address] [place] [phone] Lisa Zambrano MD [address] [place] [address] 12/03/2024 7:00 AM CDT Virtual Visit [facility] Neurology Clinic [address] [phone] Randy Maradiaga [address] 9[address] 12/09/2024 12:45 PM CDT Office Visit [facility]ty Clinic [address] [place] [phone] Tete Wang MD [address] [place] [address] [phone] 12/09/2024 1:15 PM CDT Office Visit [facility] [address] [place] [phone] Tete Wang MD [address] [place] [address]1894 12/15/2024 3:00 PM CDT Virtual Visit [address] [address] Denise Woodson APRN [address] [address] 01/19/2025 PRE VISIT [facility] [address] [address] Any Joiner MD [address] [place] [address] *-*INCOMING RECORDS*-* 01/19/2025 3:00 PM CDT Orders Only [facility] Pulmonary Function Testing [address] [phone] 01/19/2025 4:00 PM CDT Office Visit [facility] [address] [address] Any Joiner MD 420 [facility] 276 [place] [address] 06/01/2025 11:15 AM CDT Appointment [facility] Imaging [address] [place] [address] [place] [phone] Robin Zepeda MD [address] [place] [address] 06/04/2025 11:00 AM CDT Office Visit [facility] Neurosurgery [address] [phone] Robin Zepeda MD [address] [place] [address] Usha Simon APRN [address] [address] documented as of this encounter Visit Diagnoses Diagnosis Moderate persistent asthma without complication Unspecified asthma documented in this encounter Additional Health Concerns Infection Onset Date Last Indicated Resolved Time Rule Out COVID-19 09/13/2024 09/13/2024 09/13/2024 12:31 PM ED MANAGER Assessment Noted Time PHQ-9 Depression Total Score: 0 06/23/20 21 4:11 PM CDT documented as of this encounter Care Teams [employer] Factory Worker Relationship Specialty Start Date End Date Yung Madrigal MD RETIRED PCP - Orthopaedics Orthopedics 08/26/12 01/20/24 Winston Villatoro OD [facility] [place] [address] [place] [address] PCP - Ophthalmology Ophthalmology 02/11/13 Denise Woodson APRN DEPUTY SHERIFF GENERALIST/BAILIFF [address] [place] [address] PCP - General Family Practice 09/21/20 Denise Woodson APRN DEPUTY SHERIFF GENERALIST/BAILIFF [address] [place] [address] Assigned PCP 07/17/20 Usha Simon APRN DEPUTY SHERIFF GENERALIST/BAILIFF [address] [place] [address] Nurse Practitioner Neurological Surgery 01/24/24 Dangelo Salinas MD [address] [place] [address] Neurology 01/27/24 Usha Simon APRN DEPUTY SHERIFF GENERALIST/BAILIFF [address] [address] Assigned Neuroscience Provider 02/06/24 03/07/24 Anastasia Stearns, RN Lead Occupational Health And Safety Officer 02/06/24 Germaine lAeman, W Community Health Worker Primary Care - CC 02/18/24 Robin Zepeda MD [address] [address] Assigned Neuroscience Provider 03/08/24 05/07/24 Lisa Zambrano MD 6405 [facility] [address] [place] [address] Assigned Heart and Vascular Provider 05/08/24 07/07/24 Raul Hoyos MD 909 [facility] [address] Assigned Neuroscience Provider 05/08/24 07/07/24 Joya Lira [facility] [address] [address] Pharmacist Pharmacist 05/25/24 Joya Lira [facility] [address] [place] [address] Assigned MTM Pharmacist 06/08/24 Fabi Coates MD [address] [place] [address] 75 [place], [place] 8[address] Genetics, Clinical 06/18/24 Robin Zepeda MD 909 [facility] [place] [address] Assigned Neuroscience Provider 07/08/24 08/07/24 Danna Cardenas PA-C 6405 [place] [address] Assigned Heart and Vascular Provider 07/08/24 Felicita Desai, RN Lead Occupational Health And Safety Officer 07/14/24 07/28/24 Arthur Salas [facility] [address] [place] [address] Assigned Behavioral Health Provider 08/08/24 Randy Maradiaga DO 909 [place] [address] Assigned Neuroscience Provider 08/08/24 Tete Wang MD 2450 [place] [address] Genetics, Clinical 10/30/24 documented as of this encounter
--- OUTSIDE RECORDS SUMMARY | 2024-11-05 13:06 | XMS_ITS | Encounter Summary ---
Author Organization [place] Address [address] [place] [address] Care Team Providers Care [employer] Volleyball Coach Name Role Phone Winston Villatoro OD Unavailable [phone] Denise Woodson APRN CLINICAL LABORATORY MANAGER Unavailable [phone] Denise Woodson APRN CLINICAL LABORATORY MANAGER Primary Care Provider Usha Simon APRN CLINICAL LABORATORY MANAGER Unavailable + [phone] Dangelo Salinas MD Unavailable Anastasia Stearns RN Unavailable [phone] Germaine Aleman [facility] Unavailable [phone] Lisa Zambrano MD Unavailable + [phone] Raul Hoyos MD Unavailable Joya Lira [facility] Unavailable [phone] Joya Lira [facility] Unavailable [phone] Fabi Coates MD Unavailable [phone] Robin Zepeda MD Unavailable [phone] Danna Cardenas PA-C Unavailable [phone] Felicita Desai RN Unavailable Unavailab Arthur Rios Unavailable [phone] Randy Maradiaga DO Unavailable + Tete Wang [...] How often do you attend jain or yazidi serv ices? 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 [place] [phone] Lisa Zambrano MD [address] [place] [address] 12/03/2024 7:00 AM CDT Virtual Visit [facility] Neurology [address] [phone] Randy Maradiaga [address] 0015[address] 12/09/2024 12:45 PM CDT Office Visit [facility] [address] [place] [address] [phone] Tete Wang MD [address] [place] [address] 12/09/2024 1:15 PM CDT Office Visit [facility] Pediatric Specialty Clinic [address] [place] [address] [phone] Tete Wang MD [address] [place] [address]314 12/15/2024 3:00 PM CDT Virtual Visit [facility] [address] [facility] [place] [phone] Denise Woodson APRN CLINICAL LABORATORY MANAGER [address] [facility] [place] [address] 01/19/2025 PRE VISIT [facility] Science [address] [phone] Any Joiner MD [address] [place] [address]255 *-*INCOMING RECORDS*-* 01/19/2025 3:00 PM CDT Orders Only [facility] Pulmonary Function Testing [address] [place] [address] 01/19/2025 4:00 PM CDT Office Visit [facility] Science [address] [phone] Any Joiner MD [address] [place] [address] [phone] 06/01/2025 11:15 AM CDT Appointment [facility] Imaging [address] [place] [address] [place] [address] Robin Zepeda MD [address] [place] [address] 142615 06/04/2025 11:00 AM CDT Office Visit [facility] Neurosurgery [address] [phone] Robin Zepeda MD [address] [place] [address] Usha Simon APRN [address] 180325 documented as of this encounter Visit Diagnoses Not on filedocumented in this encounter Additional Health Concerns Infection Onset Date Last Indicated Resolved Time Rule Out COVID-19 09/13/2024 09/13/2024 09/13/2024 12:31 PM PIPE WASHER Assessment Noted Time PHQ-9 Depression Total Score: 5 03/17/20 24 9:45 AM CDT documented as of this encounter Care Teams [employer] Volleyball Coach Relationship Specialty Start Date End Date Winston Villatoro OD [facility] [place] [address] [place] [address] PCP - Ophthalmology Ophthalmology 02/11/13 Denise Woodson APRN CLINICAL LABORATORY MANAGER [address] [place] [address] PCP - General Family Practice 09/21/20 Denise Woodson APRN CLINICAL LABORATORY MANAGER [address] [place] [address] Assigned PCP 07/17/20 Usha Simon APRN CLINICAL LABORATORY MANAGER 909 [facility]121[place], [place] [address] Nurse Practitioner Neurological Surgery 01/24/24 Dangelo Salinas MD [address] [place], [place] [phone] Neurology 01/27/24 Anastasia Stearns, RN Lead Cath Lab Radiological Technologist 02/06/24 Germaine Aleman, CHW Community Health Worker Primary Care - CC 02/18/24 Lisa Zambrano MD [address] [place] [address] Assigned Heart and Vascular Provider 05/08/24 07/07/24 Raul Hoyos MD 909 [facility]121[place] [place] [address] Assigned Neuroscience Provider 05/08/24 07/07/24 Joya Lira [facility] [address] [place] [address] Pharmacist Pharmacist 05/25/24 Joya Lira [facility] [address] [place] [address] Assigned MTM Pharmacist 06/08/24 Fabi Coates MD [address] [place] [address] 75 [place] [address] Genetics, Clinical 06/18/24 Robin Zepeda MD 909 [facility] [place] [address] Assigned Neuroscience Provider 07/08/24 08/07/24 Danna Cardenas PA-C 6405 [place] [address] Assigned Heart and Vascular Provider 07/08/24 Felicita Desai, GEMA Lead Cath Lab Radiological Technologist 07/14/24 07/28/24 Arthur Salas [facility] [address] [address] Assigned Behavioral Health Provider 08/08/24 Randy Maradiaga DO 909 [place] [address] Assigned Neuroscience Provider 08/08/24 Tete Wang MD 2450 [place], [place] 512504 Genetics, Clinical 10/30/24 documented as of this encounter
--- OUTSIDE RECORDS SUMMARY | 2024-11-05 13:06 | XMS_ITS | Encounter Summary ---
Author Organization [place] Address [address] [place] [address] Care Team Providers Care Trimmer And Borer Machine Operator Name Role Phone Winston Villatoro OD Unavailable [phone] Denise Woodson APRN PHARMACY PICKING TECHNICIAN Unavailable +[phone] Denise Woodson APRN PHARMACY PICKING TECHNICIAN Primary Care Provider Usha Simon APRN [facility] Unavailable + [phone] Dangelo Salinas MD Unavailable Anastasia Stearns RN Unavailable [phone] Germaine Aleman [facility] Unavailable +[phone] Joya Lira [facility] Unavailable +[phone] Joya Lira [facility] Unavailable [phone] Fabi Coates MD Unavailable [phone] Danna Cardenas PA-C Unavailable [phone] Arthur Salas BUILDING TECH Unavailable +[phone] Randy Maradiaga DO Unavailable + Tete Wang MD Unavailable [phone] Reason for Visit * Reason Onset Date Comments Appointment 10/30/2024 Genetics resched megha Encounter Details Date Type Department Care Team (Late st Contact Info) Description 10/30/2024 Telephone [facility] [address] [facility] [address],[place] [address] Unknown, Provider Appointment (Genetics reschedule) Social History Tobacco Use Types Packs/Day Years [...] How often do you attend tenriism or voodoo serv ices? 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 Fabi Coates will need to be rescheduled due to provider being unavailable on that date. Call center number provided for rescheduling. When family calls back, OK to reschedule appointment with Dr. Wang, Dr. Vincent, Dr. Coates, Dr. Bradley, or Dr. Marie, with GC visit 30 minutes prior. OK to use held time with Dr. Wang on or Saturday of the month, if needed. TECHNICIAN documented in this encounter Plan of Treatment Upcoming Encounters Date Type Department Care Team (Late st Contact Info) Description 11/06/2024 12:00 PM BODY TECHNICIAN Virtual Visit [facility] [address] [place] [phone] Denise Woodson APRN [facility] [address] [place], [place] [phone] 12/01/2024 4:00 PM CDT Virtual Visit [facility] [place] [address] [place] [address] Lisa Zambrano MD [address] [place] [address] 12/03/2024 7:00 AM CDT Virtual Visit [facility] Neurology Clinic [address] [place] [phone] Randy Maradiaga DO [address] [place] [address] 319255 12/09/2024 12:45 PM CDT Office Visit [facility] [address] [place] [address],[place] [phone] Tete Wang MD [address] [place] [address] 538084 12/09/2024 1:15 PM CDT Office Visit [facility] Pediatric Specialty Clinic [facility] [address],[place] [phone] Tete Wang MD [facility] [place] [address] 12/15/2024 3:00 PM CDT Virtual Visit [facility] [address] [place] [address] Denise Woodson APRN PHARMACY PICKING TECHNICIAN [address] [place] [address] 01/19/2025 PRE VISIT [facility] [address] [phone] Any Joiner MD [address] [place] [address] [phone] *-*INCOMING RECORDS*-* 01/19/2025 3:00 PM CDT Orders Only [facility] Pulmonary Function Testing [address] 3rd [place] [phone] 01/19/2025 4:00 PM CDT Office Visit [facility] [address] [phone] Any Joiner MD [address] [place] [address] 3559[address] 06/01/2025 11:15 AM CDT Appointment [facility] Imaging [address] [facility] [address] [place] [phone] Robin Zepeda MD [address] [place] [address] [address] 06/04/2025 11:00 AM CDT Office Visit [facility] Neurosurgery Clinic [address] [place] [phone] Robin Zepeda MD [address] [place] [address] Usha Simon APRN PHARMACY PICKING TECHNICIAN [address] [place] [address] documented as of this encounter Visit Diagnoses Not on filedocumented in this encounter Additional Health Concerns Assessment Noted Time PHQ-9 Depression Total Score: 0 09/18/19 25 12:46 PM BODY TECHNICIAN documented as of this encounter Care Teams Trimmer And Borer Machine Operator Relationship Specialty Start Date End Date Winston Villatoro OD [facility] [place] [address] [facility] [address] [place] [address] PCP - Ophthalmology Ophthalmology 02/11/13 Denise Woodson APRN PHARMACY PICKING TECHNICIAN [address] [place] [address] PCP - General Family Practice 09/21/20 Denise Woodson APRN PHARMACY PICKING TECHNICIAN [address] [place] [address] Assigned PCP 07/17/20 Usha Simon APRN PHARMACY PICKING TECHNICIAN [address] [place] [address] Nurse Practitioner Neurological Surgery 01/24/24 Dangelo Salinas MD [address] [place] [address] Neurology 01/27/24 Anastasia Stearns, RN Lead Yolk Spray Drier 02/06/24 Germaine Aleman, W Community Health Worker Primary Care - CC 02/18/24 Joya Lira [facility] [address] [place] [address] Pharmacist Pharmacist 05/25/24 Joya Lira [facility] [address] [place] [address] 528[address] Assigned MTM Pharmacist 06/08/24 Fabi Coates MD [address] [place] [address] 856075 Genetics, Clinical 06/18/24 Danna Cardenas PA-C [address] [place] [address] 193035 Assigned Heart and Vascular Provider 07/08/24 Arthur Salas BUILDING TECH [address] [place] [address] [id number] Assigned Behavioral Health Provider 08/08/24 Randy Maradiaga DO 909 [place], [place] 755895 Assigned Neuroscience Provider 08/08/24 Tete Wang MD 2450 [place], [place] 811854 Genetics, Clinical 10/30/24 documented as of this encounter
--- OUTSIDE RECORDS SUMMARY | 2024-11-05 13:06 | XMS_ITS | Encounter Summary ---
Author Organization [place] Address [address] [place] [address] Care Team Providers Care Construction Representative Name Role Phone Winston Villatoro OD Unavailable [phone] Denise Woodson APRN SOFTWARE DEVELOPMENT TEST ENGINEER Unavailable [phone] Denise Woodson APRN SOFTWARE DEVELOPMENT TEST ENGINEER Primary Care Provider Usha Simon APRN SOFTWARE DEVELOPMENT TEST ENGINEER Unavailable + [phone] Dangelo Salinas MD Unavailable Anastasia Stearns RN Unavailable Germaine Aleman [facility] Unavailable [phone] Lisa Zambrano MD Unavailable + [phone] Raul Hoyos MD Unavailable Joya Lira [facility] Unavailable [phone] Joya Lira [facility] Unavailable [phone] Fabi Coates MD Unavailable [phone] Robin Zepeda MD Unavailable [phone] Danna Cardenas PA-C Unavailable [phone] Felicita Desai RN Unavailable Unavailab Arthur Rios Unavailable +[phone] Randy Maradiaga DO Unavailable + Tete Wang MD Unavailable Encounter Details Date Type Department Care Team (Late st Contact Info) Description 05/13/2024 Ajay Medical Advice [facility] Care Coordination [facility] [address] [place] [phone] Anastasia Stearns, RN Social History Tobacco Use [...] How often do you attend buddhist or evangelical serv ices? 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 [place] [address] Lisa Zambrano MD [address] [place] [id number] 12/03/2024 7:00 AM CDT Virtual Visit [facility] Neurology [address] [phone] Randy Maradiaga, [address] [address] 12/09/2024 12:45 PM CDT Office Visit [facility] [address] [place] [phone] Tete Wang MD [address] [place] [address] 855734 12/09/2024 1:15 PM CDT Office Visit [facility] [address] [place] [phone] Tete Wang MD [address] [place] [address] 788284 12/15/2024 3:00 PM CDT Virtual Visit [facility] [address] [place] [phone] Denise Woodson APRN SOFTWARE DEVELOPMENT TEST ENGINEER [address] [place], [place] [phone] 01/19/2025 PRE VISIT [facility] Lung Science [address] [phone] Any Joiner MD [address] [place] [address] 929485 *-*INCOMING RECORDS*-* 01/19/2025 3:00 PM CDT Orders Only [facility] Pulmonary Function Testing [address] [phone] 01/19/2025 4:00 PM CDT Office Visit [facility] Lung Science [address] [phone] Any Joiner MD [address] [place] [address] [id number] 06/01/2025 11:15 AM CDT Appointment [facility] Imaging [address] [facility] [address] [place] [phone] Robin Zepeda MD [address] [place] [address] 696335 06/04/2025 11:00 AM CDT Office Visit [facility] Neurosurgery [address] [phone] Robin Zepeda MD [address] [place] [address] 507125 Usha Simon APRN SOFTWARE DEVELOPMENT TEST ENGINEER [address] [place] [address], [place] [address] documented as of this encounter Visit Diagnoses Not on filedocumented in this encounter Additional Health Concerns Infection Onset Date Last Indicated Resolved Time Rule Out COVID-19 09/13/2024 09/13/2024 09/13/2024 12:31 PM HEAVY TRUCK MECHANIC Assessment Noted Time PHQ-9 Depression Total Score: 5 03/17/20 24 9:45 AM CDT documented as of this encounter Care Teams Construction Representative Relationship Specialty Start Date End Date Winston Villatoro OD [facility] [place] [address] [place] [address] PCP - Ophthalmology Ophthalmology 02/11/13 Denise Woodson APRN SOFTWARE DEVELOPMENT TEST ENGINEER [address] [place] [address] PCP - General Family Practice 09/21/20 Denise Woodson APRN SOFTWARE DEVELOPMENT TEST ENGINEER [address] [place] [address] Assigned PCP 07/17/20 Usha Simon APRN SOFTWARE DEVELOPMENT TEST ENGINEER [address] [place] [address], [place] [address] Nurse Practitioner Neurological Surgery 01/24/24 Dangelo Salinas MD [address] [place], [place] [phone] Neurology 01/27/24 Anastasia Stearns, RN Lead Customs Import Specialist 02/06/24 Germaine Aleman, CHW Community Health Worker Primary Care - CC 02/18/24 Lisa Zambrano MD [address] [facility] [address] [place] [address] Assigned Heart and Vascular Provider 05/08/24 07/07/24 Raul Hoyos MD 909 [facility] [place] [address] Assigned Neuroscience Provider 05/08/24 07/07/24 Joya Lira [facility] [address] [address] Pharmacist Pharmacist 05/25/24 Joya Lira [facility] [address] [place] [address] Assigned MTM Pharmacist 06/08/24 Fabi Coates MD [address] [place] [address] 75 [place] [address] Genetics, Clinical 06/18/24 Robin Zepeda MD 9[address] [facility]121[address] [place] [address] Assigned Neuroscience Provider 07/08/24 08/07/24 Danna Cardenas PA-C 6405 [place] [address] Assigned Heart and Vascular Provider 07/08/24 Felicita Desai, RN Lead Customs Import Specialist 07/14/24 07/28/24 Arthur Salas DATA DELIVERABLES MANAGER [address] [place] [address] Assigned Behavioral Health Provider 08/08/24 Randy Maradiaga DO 909 [place] [address] Assigned Neuroscience Provider 08/08/24 Tete Wang MD [facility] [place] [address] Genetics, Clinical 10/30/24 documented as of this encounter
--- OUTSIDE RECORDS SUMMARY | 2024-11-05 13:06 | XMS_ITS | Encounter Summary ---
Author Organization [place] Address [address] [place] [address] Care Team Providers Care Parole Supervisor Name Role Phone Winston Villatoro OD Unavailable [phone] Denise Woodson APRN SPORTS COMPLEX ATTENDANT Unavailable [phone] Denise Woodson APRN SPORTS COMPLEX ATTENDANT Primary Care Provider Usha iSmon APRN SPORTS COMPLEX ATTENDANT Unavailable + [phone] Dangelo Salinas MD Unavailable Anastasia Stearns RN Unavailable [phone] [facility] Unavailable [phone] Lisa Zambrano MD Unavailable + [phone] Raul Hoyos MD Unavailable Joya Lira [facility] Unavailable [phone] Joya Lira [facility] Unavailable [phone] Fabi Coates MD Unavailable [phone] Robin Zepeda MD Unavailable [phone] Danna Cardenas PA-C Unavailable [phone] Felicita Desai RN Unavailable Unavailab Arthur Rios Unavailable +[phone] Randy Maradiaga DO Unavailable + Tete Wang MD Unavailable [phone] Reason for Visit * Reason Onset Date Comments Symptoms 05/12/2024 Stroke symptoms per pt Encounter Details Date Type Department Care Team (Late st Contact Info) Description 05/12/2024 Telephone [facility] Neurology Clinic [address] 3rd [place] [address] Raul Hoyos MD [address] [place] [address] [id number] [place] [address] Symptoms (Stroke symptoms per pt ) Social [...] How often do you attend religious or druze serv ices? 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 Not [...] that she does not want to present [facility] ED as she has been to two [...] states she was at the ED at [facility] on Saturday05/08/24 and they also did [...] Day - 05/12/2024 10:18 AM CDT [facility] Call Center Phone Message May a [...] st Contact Info) Description 11/06/2024 12:00 PM CLINICAL TRANSPLANT COORDINATOR Virtual Visit [facility] [address] [place] [phone] Denise Woodson APRN SPORTS COMPLEX ATTENDANT [address] [place], [place] [phone] 12/01/2024 4:00 PM CDT Virtual Visit [facility] Vascular Clinic [place] [address] [place] [phone] Lisa Zambrano MD [address] [place] [address] 12/03/2024 7:00 AM CDT Virtual Visit [facility] Neurology Clinic [address] 3rd [place] [address] Randy Maradiaga DO [address] [place] [address] 781625 12/09/2024 12:45 PM CDT Office Visit [facility]ty Clinic [address] [place] [phone] Tete Wang MD [address] [place] [address] 759544 12/09/2024 1:15 PM CDT Office Visit [facility]ty Clinic [address] [place] [phone] Tete Wang MD [address] [place] [address] [id number] 12/15/2024 3:00 PM CDT Virtual Visit [facility] [address] [place] [address] Denise Woodson APRN [facility] [address] [place], [place] [phone] 01/19/[address] [facility] [address] [phone] Any Joiner MD [address] [address] *-*INCOMING RECORDS*-* 01/19/2025 3:00 PM CDT Orders Only [facility] Pulmonary Function Testing [address] 3rd [place] [phone] 01/19/2025 4:00 PM CDT Office Visit [facility] Clinic [address] [phone] Any Joiner MD 420 [facility] 276 [place], [place] 772815 06/01/2025 11:15 AM CDT Appointment [facility] Imaging [address] [place] [address] [place] [phone] Robin Zepeda MD [address] [place] [address] 06/04/2025 11:00 AM CDT Office Visit [facility] Neurosurgery [address] 3rd [place] [phone] Robin Zepeda MD [address] [place] [address] 541515 Usha Simon APRN SPORTS COMPLEX ATTENDANT [address] [place] [address] 150565 documented as of this encounter Visit Diagnoses Not on filedocumented in this encounter Additional Health Concerns Infection Onset Date Last Indicated Resolved Time Rule Out COVID-19 09/13/2024 09/13/2024 09/13/2024 12:31 PM CLINICAL TRANSPLANT COORDINATOR Assessment Noted Time PHQ-9 Depression Total Score: 5 03/17/20 24 9:45 AM CDT documented as of this encounter Care Teams Parole Supervisor Relationship Specialty Start Date End Date Winston Villatoro OD [facility] [place] [address] [place] [address] PCP - Ophthalmology Ophthalmology 02/11/13 Denise Woodson APRN SPORTS COMPLEX ATTENDANT [address] [address] PCP - General Family Practice 09/21/20 Denise Woodson APRN SPORTS COMPLEX ATTENDANT [address] [place] [address] Assigned PCP 07/17/20 Usha Simon APRN SPORTS COMPLEX ATTENDANT [address] 383915 Nurse Practitioner Neurological Surgery 01/24/24 Dangelo Salinas MD [address] [place] [address] Neurology 01/27/24 Anastasia Stearns, RN Lead Dinkey Engine Mechanic 02/06/24 Germaine Aleman, [facility] Community Health Worker Primary Care - CC 02/18/24 Lisa Zambrano MD 6[address] [facility] [address] [place] [address] [place] 229205 Assigned Heart and Vascular Provider 05/08/24 07/07/24 Raul Hoyos MD [address] [address] Assigned Neuroscience Provider 05/08/24 07/07/24 Joya Lira [facility] [address] [place], [place] [phone] Pharmacist Pharmacist 05/25/24 Joya Lira [facility] [address] [place] [address] Assigned MTM Pharmacist 06/08/24 Fabi Coates MD 420 [facility] 75 [place] [address] Genetics, Clinical 06/18/24 Robin Zepeda MD 909 [facility] [id number] [place] [address] Assigned Neuroscience Provider 07/08/24 08/07/24 Danna Cardenas PA-C [address] [place] [address] Assigned Heart and Vascular Provider 07/08/24 Felicita Desai RN Lead Dinkey Engine Mechanic 07/14/24 07/28/24 Arthur Salas, [facility] [address] [place] [address] Assigned Behavioral Health Provider 08/08/24 Randy Maradiaga DO 909 [place] [address] Assigned Neuroscience Provider 08/08/24 [place] [address] [place] [address] Genetics, Clinical 10/30/24 documented as of this encounter
--- OUTSIDE RECORDS SUMMARY | 2024-11-05 13:06 | XMS_ITS | Encounter Summary ---
Author Organization [place] Address [address] [place] [address] Care Team Providers Care Jointer Submarine Cable Name Role Phone Winston Villatoro OD Unavailable [phone] Denise Woodson APRN SPORTS DOCTOR Unavailable [phone] Denise Woodson APRN SPORTS DOCTOR Primary Care Provider Usha Simon APRN SPORTS DOCTOR Unavailable + [phone] Dangelo Salinas MD Unavailable Anastasia Stearns RN Unavailable Germaine Aleman [facility] Unavailable Joya Lira [facility] Unavailable Joya Lira [facility] Unavailable [phone] Fabi Coates MD Unavailable [phone] Danna Cardenas PA-C Unavailable +[phone] Arthur Salas BACK ORDER CLERK Unavailable +[phone] Randy Maradiaga DO Unavailable + Encounter Details Date Type Department Care Team (Late st Contact Info) Description 10/20/2024 Telephone [facility] Neurology [address] 3rd [place] [address] Radny Maradiaga DO 909 [place] [address] Social History Tobacco Use Types Packs/Day Years [...] Never 09/16/2024 How often do you attend nondenominational or episcopal serv ices? 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 Maradiaga Return date: Sep 2025 Specialty phone number: [phone] Additional appointment(s) needed: NA Additonal Notes: AL HUSBANDRY TEACHER documented in this encounter Plan of Treatment Upcoming Encounters Date Type Department Care Team (Late st Contact Info) Description 11/06/2024 12:00 PM ANIMAL HUSBANDRY TEACHER Virtual Visit [facility] [address] [place] [phone] Denise Woodosn APRN SPORTS DOCTOR [address] [place], [place] 34[address] 12/01/2024 4:00 PM CDT Virtual Visit [facility] Vascular [facility] [address] [place] [phone] Lisa Zambrano MD [address] [place] [address] 12/03/2024 7:00 AM CDT Virtual Visit [facility] Neurology [address] [phone] Randy Maradiaga, [address] [address] 12/09/2024 12:45 PM CDT Office Visit [facility] [address] [place] [phone] Tete aWng MD [address] [place] [address] 622124 12/09/2024 1:15 PM CDT Office Visit [facility] [address] [place], [place] [address] [address] [phone] Tete Wang MD 2450 [place], [place] 098124 12/15/2024 3:00 PM CDT Virtual Visit [facility] [address] [place] [phone] Denise Woodson APRN [facility] [address] [place], [place] 4384768 01/19/2025 PRE VISIT [facility] Lung Science [address] [address] Any Joiner MD [address] [place] [address] 587[address] *-*INCOMING RECORDS*-* 01/19/2025 3:00 PM CDT Orders Only [facility] Pulmonary Function Testing [address] 3[address] [place] [phone] 01/19/2025 4:00 PM CDT Office Visit [facility] Lung Science [address] [phone] Any Joiner MD [address] [place] [address] 630205 06/01/2025 11:15 AM CDT Appointment [facility] Imaging [address] [place] [address] Robin Zepeda MD [address] [place], [place] [address] [address] 06/04/2025 11:00 AM CDT Office Visit [facility] Neurosurgery [address] [place] [phone] Robin Zepeda MD [address] [address] Usha Simon APRN SPORTS DOCTOR [address] [address] documented as of this encounter Visit Diagnoses Not on filedocumented in this encounter Additional Health Concerns Assessment Noted Time PHQ-9 Depression Total Score: 0 09/18/19 25 12:46 PM ANIMAL HUSBANDRY TEACHER documented as of this encounter Care Teams Jointer Submarine Cable Relationship Specialty Start Date End Date Winston Villatoro OD [facility] Pierz [address] [place] [address] PCP - Ophthalmology Ophthalmology 02/11/13 Denise Woodson APRN SPORTS DOCTOR [address] [place] [address] PCP - General Family Practice 09/21/20 Denise Woodson APRN SPORTS DOCTOR [address] [place] [address] Assigned PCP 07/17/20 Usha Simon APRN SPORTS DOCTOR [address] [place] [address] Nurse Practitioner Neurological Surgery 01/24/24 Dangelo Salinas MD [address] [place] [address] Neurology 01/27/24 Anastasia Stearns, RN Lead Senior Software Analyst 02/06/24 Germaine Aleman, [facility] Community Health Worker Primary Care - CC 02/18/24 Joya Lira RPH [address] [place] [address] Pharmacist Pharmacist 05/25/24 Joya Lira RPH [address] [place] [address] Assigned MTM Pharmacist 06/08/24 Fabi Coates MD [address] [place] [address] Genetics, Clinical 06/18/24 Danna Cardenas PA-C 6405 [place] [address] Assigned Heart and Vascular Provider 07/08/24 Arthur Salas LICSW [address] [address] Assigned Behavioral Health Provider 08/08/24 Randy Maradiaga DO [address] [place] [address] Assigned Neuroscience Provider 08/08/24 documented as of this encounter
--- OUTSIDE RECORDS SUMMARY | 2024-11-05 13:06 | XMS_ITS | Encounter Summary ---
Author Organization [place] Address [address] [place] [address] Care Team Providers Care Graduate Engineer Name Role Phone Winston Villatoro OD Unavailable +[phone] Denise Woodson APRN DOCUMENT EXAMINER Unavailable +[phone] Denise Woodson APRN DOCUMENT EXAMINER Primary Care Provider Usha Simon APRN DOCUMENT EXAMINER Unavailable + [phone] Dangelo Salinas MD Unavailable Anastasia Stearns RN Unavailable +[phone] Germaine Aleman [facility] Unavailable +[phone] Joya Lira [facility] Unavailable +[phone] Joya Lira [facility] Unavailable [phone] Fabi Coates MD Unavailable [phone] Danna Cardenas PA-C Unavailable +[phone] Arthur Salas PROPELLER INSPECTOR Unavailable +[phone] Randy Maradiaga DO Unavailable + Tete Wang MD Unavailable +[phone] Encounter Details Date Type Department Care Team (Late st Contact Info) Description 10/21/2024 [facility] Neurology Clinic [address] [place] [address] Laronfortunato Randy Yobany, DO 909 [place] [address] Social History Tobacco Use Types [...] Never 09/16/2024 How often do you attend mandaen or uatsdin serv ices? Never 09/16/2024 Do you belong [...] Answer Date Recorded PHQ-2 Score 0 09/29/2024 [facility] of Occupat ional Health [...] in an overnight residential, or couch-surfing.) Yes 09/16/2024 Are you worried [...] file Legal Sex Female 4:05 AM WARP DYEING VAT TENDER Gender Identity Not on file Sexual [...] st Contact Info) Description 11/06/2024 12:00 PM WARP DYEING VAT TENDER Virtual Visit [address] [address] Denise Woodson APRN DOCUMENT EXAMINER [address] [facility] [place] [address] 12/01/2024 4:00 PM CDT Virtual Visit [facility] Vascular [facility] [address] [place] [phone] Lisa Zambrano MD [address] [place] [address] 12/03/2024 7:00 AM CDT Virtual Visit [facility] Neurology [address] [phone] Randy Maradiaga [address] 5564[address] 12/09/2024 12:45 PM CDT Office Visit [facility]ty Clinic [address] [place] [address] [phone] Tete Wang MD [address] [place] [address] 12/09/2024 1:15 PM CDT Office Visit [facility] Clinic [address] [place] [address] [phone] Tete Wang MD [address] [place] [address] 751004 12/15/2024 3:00 PM CDT Virtual Visit [facility] [address] [place] [phone] Denise Woodson APRN DOCUMENT EXAMINER [address] [place] [address] 01/19/2025 PRE VISIT [facility] Lung Science [address] [phone] Any Joiner MD [address] [place] [address] 405845 *-*INCOMING RECORDS*-* 01/19/2025 3:00 PM CDT Orders Only [facility] Pulmonary Function Testing [address] [phone] 01/19/2025 4:00 PM CDT Office Visit [facility] Lung Science [address] [phone] Any Joiner MD [address] [place] [address] 822715 06/01/2025 11:15 AM CDT Appointment [facility] Center Imaging [address] [facility] [address] [place] [phone] Robin Zepeda MD [address] [place] [address] 668925 06/04/2025 11:00 AM CDT Office Visit [facility] Clinic [address] [phone] Robin Zepeda MD [address] [place] [address] 294255 Usha Simon APRN [address] 862105 documented as of this encounter Visit Diagnoses Not on filedocumented in this encounter Additional Health Concerns Assessment Noted Time PHQ-9 Depression Total Score: 0 09/18/19 25 12:46 PM WARP DYEING VAT TENDER documented as of this encounter Care Teams Graduate Engineer Relationship Specialty Start Date End Date Winston Villatoro OD [facility] [place] [address] [place] [address] PCP - Ophthalmology Ophthalmology 02/11/13 Denise Woodson APRN DOCUMENT EXAMINER [address] [facility] [facility] [place] [address] PCP - General Family Practice 09/21/20 Denise Woodson APRN DOCUMENT EXAMINER [address] [address] [facility] [address] Assigned PCP 07/17/20 Usha Simon APRN DOCUMENT EXAMINER 9 [facility] [address] Nurse Practitioner Neurological Surgery 01/24/24 Dangelo Salinas MD [address] [place] [address] Neurology 01/27/24 Anastasia Stearns, RN Lead Microwave Radio Technician 02/06/24 Germaine Aleman CHW Community Health Worker Primary Care - CC 02/18/24 Joya Lira RPH [address] [place] [address] Pharmacist Pharmacist 05/25/24 Joya Lira RPH [address] [place] [address] Assigned MTM Pharmacist 06/08/24 Fabi Coates MD [address] [place] [address] 75 [place] [address] Genetics, Clinical 06/18/24 Danna Cardenas PA-C [address] [place] [address] Assigned Heart and Vascular Provider 07/08/24 Arthur Salas [facility] [address] [address] Assigned Behavioral Health Provider 08/08/24 Randy Maradiaga DO [address] [place] [address] Assigned Neuroscience Provider 08/08/24 Tete Wang MD [address] [place] [address] 011464 Genetics, Clinical 10/30/24 documented as of this encounter
--- OUTSIDE RECORDS SUMMARY | 2024-11-05 13:06 | XMS_ITS | Encounter Summary ---
Author Organization [place] Address [address] [place] [address] Care Team Providers Care Draw Operator Name Role Phone Winston Villatoro OD Unavailable [phone] Denise Woodson APRN CONSTRUCTION ENGINEERING MANAGER Unavailable [phone] Denise Woodson APRN CONSTRUCTION ENGINEERING MANAGER Primary Care Provider Usha Simon APRN CONSTRUCTION ENGINEERING MANAGER Unavailable + [phone] Dangelo Salinas MD Unavailable Anastasia Stearns RN Unavailable +[phone] Germaine Aleman [facility] Unavailable +[phone] Joya Lira [facility] Unavailable +[phone] Joya Lira [facility] Unavailable +[phone] Fabi Coates MD Unavailable [phone] Danna Cardenas PA-C Unavailable +[phone] Arthur Salas [employer]IM[employer] Unavailable [phone] Randy Maradiaga DO Unavailable + Tete Wang MD Unavailable +[phone] Encounter Details Date Type Department Care Team (Late st Contact Info) Description 10/14/2024 [facility] [address] [place] [address] Janeen Badillo Social History Tobacco Use Types Packs/Day Years [...] How often do you attend nondenominational or islam serv ices? Never 09/16/2024 Do you belong [...] Legal Sex Female 4:05 AM DIRECTOR OF SOFTWARE DEVELOPMENT Gender Identity Not on file Sexual Orientation [...] st Contact Info) Description 11/06/2024 12:00 PM DIRECTOR OF SOFTWARE DEVELOPMENT Virtual Visit [facility] [address] [place] [address] Denise Woodson APRN [facility] [address] [place] [address] 12/01/2024 4:00 PM CDT Virtual Visit [facility] Vascular Clinic [place] [address] [place] [phone] Lisa Zambrano MD [address] [place] [address] 12/03/2024 7:00 AM CDT Virtual Visit [facility] Neurology [address] 3rd [place] [phone] Randy Maradiaga, [address] 481075 12/09/2024 12:45 PM CDT Office Visit [facility] Pediatric Specialty Clinic [address] [place] [address] [phone] Tete Wang MD [address] [place] [address] 301294 12/09/2024 1:15 PM CDT Office Visit [facility]ty Clinic [address] [place] [address] [phone] Tete Wang MD [address] [place] [address] 12/15/2024 3:00 PM CDT Virtual Visit [facility] [address] [place] [address] Denise Woodson APRN [facility] [address] [place], [place] 1220168 01/19/2025 PRE VISIT [facility] [address] [phone] Any Joiner MD [address] [place] [address] 176765 *-*INCOMING RECORDS*-* 01/19/2025 3:00 PM CDT Orders Only [facility] Pulmonary Function Testing [address] [phone] 01/19/2025 4:00 PM CDT Office Visit [address] [phone] Any Joiner MD [address] [place] [address] 969895 06/01/2025 11:15 AM CDT Appointment [facility] Imaging [address] [facility] [address] [place] [phone] Robin Zepeda MD [address] [place] [address] 099765 06/04/2025 11:00 AM CDT Office Visit [facility] Neurosurgery Clinic [address] [phone] Robin Zepeda MD [address] [place] [address] 854795 Usha Simon APRN [address] 047795 documented as of this encounter Visit Diagnoses Not on filedocumented in this encounter Additional Health Concerns Assessment Noted Time PHQ-9 Depression Total Score: 0 09/18/19 25 12:46 PM DIRECTOR OF SOFTWARE DEVELOPMENT documented as of this encounter Care Teams Draw Operator Relationship Specialty Start Date End Date Winston Villatoro OD [facility] [place] [address] [place] [address] PCP - Ophthalmology Ophthalmology 02/11/13 Denise Woodson APRN CONSTRUCTION ENGINEERING MANAGER [address] [place] [address] PCP - General Family Practice 09/21/20 Denise Woodson APRN CONSTRUCTION ENGINEERING MANAGER [address] [place] [address] Assigned PCP 07/17/20 Usha Simon APRN CONSTRUCTION ENGINEERING MANAGER 909 [facility]121[place] [address] Nurse Practitioner Neurological Surgery 01/24/24 Dangelo Salinas MD [address] [place], [place] [address] Neurology 01/27/24 Anastasia Stearns, RN Lead Crm Dynamics Developer 02/06/24 Germaine Aleman, W Community Health Worker Primary Care - CC 02/18/24 Joya Lira RPH [address] [place] [address] Pharmacist Pharmacist 05/25/24 Joya Lira RPH [address] [place] [address] Assigned MTM Pharmacist 06/08/24 Fabi Coates MD 420 [facility] 75 [place] [address] Genetics, Clinical 06/18/24 Danna Cardenas PA-C 6405 [place] [address] Assigned Heart and Vascular Provider 07/08/24 Arthur Salas [facility] [address] [place] [address] Assigned Behavioral Health Provider 08/08/24 Randy Maradiaga DO 909 [place] [address] Assigned Neuroscience Provider 08/08/24 Tete Wang MD 2450 [place] [address] Genetics, Clinical 10/30/24 documented as of this encounter
--- OUTSIDE RECORDS SUMMARY | 2024-11-05 13:06 | XMS_ITS | Encounter Summary ---
Author Organization [place] Address [address] [place] [address] Care Team Providers Care Retail Salesman Name Role Phone Winston Villatoro OD Unavailable [phone] Denise Woodson APRN ESTHETIC DERMATOLOGIST Unavailable [phone] Denise Woodson APRN ESTHETIC DERMATOLOGIST Primary Care Provider Usha Simon APRN ESTHETIC DERMATOLOGIST Unavailable + [phone] Dangelo Salinas MD Unavailable Anastasia Stearns RN Unavailable Germaine Aleman [facility] Unavailable +[phone] Lisa Zambrano MD Unavailable + [phone] Raul Hoyos MD Unavailable Joya Lira [facility] Unavailable [phone] Joya Liar [facility] Unavailable +[phone] Fabi Coates MD Unavailable [phone] Robin Zepeda MD Unavailable [phone] Danna Cardenas PA-C Unavailable +[phone] Felicita Desai RN Unavailable Unavailab Arthur Rios Unavailable +[phone] Randy Maradiaga DO Unavailable + Tete Wang MD Unavailable +[phone] Encounter Details Date Type Department Care Team (Late st Contact Info) Description 05/11/2024 MyC Medical Advice [facility] [address] [place] [address] Denise Woodson QA AUTOMATION DEVELOPER [facility] [address] [place] [address] Social History Tobacco Use Types [...] How often do you attend bahai or mormon serv ices? Never 02/28/2024 Do [...] Answer Date Recorded PHQ-2 Score 2 05/05/2024 [facility] of Occupat ional Health - Occupational Stress [...] an overnight nursing home, or couch-surfing.) Yes 05/15/2024 Are you worried [...] on file Legal Sex Female 4:05 AM RETAIL COORDINATOR Gender Identity Not on file Sexual [...] to provider as FYI. Qing Copeland Lead Glassware Maker [facility] documented in this encounter Plan of Treatment Upcoming Encounters Date Type Department Care Team (Late st Contact Info) Description 11/06/2024 12:00 PM RETAIL COORDINATOR Virtual Visit [facility] [address] [place] [phone] Chintan DeniseBARRERA diaz ESTHETIC DERMATOLOGIST [address] [place], [place] 7843268 12/01/2024 4:00 PM CDT Virtual Visit [facility] Vascular Clinic [place] [address] [place] [phone] Lisa Zambrano MD [address] [place] 936935 12/03/2024 7:00 AM CDT Virtual Visit [facility] Neurology [address] 3rd [place] [address] aRndy Maradiaga, DO [address] [place] [address] 12/09/2024 12:45 PM CDT Office Visit [facility] Pediatric Specialty Clinic [address] [place] [phone] Tete Wang MD [address] [place] [address] [phone] 12/09/2024 1:15 PM CDT Office Visit [facility]ty Clinic [address] [place] [address] [phone] Tete Wang MD [address] [place] [address] [phone] 12/15/2024 3:00 PM CDT Virtual Visit [facility] [address] [place] [address] Denise Woodson APRN [facility] [address] [place] [address] 1963368 01/19/2025 PRE VISIT [facility] [address] [address] Any Joiner MD [address] [place] [address] 705165 *-*INCOMING RECORDS*-* 01/19/2025 3:00 PM CDT Orders Only [facility] Pulmonary Function Testing [address] 3rd [place] [address] 01/19/2025 4:00 PM CDT Office Visit [facility] [address] [phone] Any Joiner MD [address] [facility] 276 [place], [place] 991465 06/01/2025 11:15 AM CDT Appointment [facility] Imaging [address] [place] [address] [place] [phone] Robin Zepeda MD [address] [place] [address] 273495 06/04/2025 11:00 AM CDT Office Visit [facility] Neurosurgery Clinic [address] 3rd [place] [phone] Robin Zepeda MD [address] [place] [address] 113655 Usha Simon APRN ESTHETIC DERMATOLOGIST [address] [place] [address] documented as of this encounter Visit Diagnoses Not on filedocumented in this encounter Additional Health Concerns Infection Onset Date Last Indicated Resolved Time Rule Out COVID-19 09/13/2024 09/13/2024 09/13/2024 12:31 PM RETAIL COORDINATOR Assessment Noted Time PHQ-9 Depression Total Score: 5 03/17/20 24 9:45 AM CDT documented as of this encounter Care Teams Retail Salesman Relationship Specialty Start Date End Date Winston Villatoro OD [facility] [place] [address] [place] [address] PCP - Ophthalmology Ophthalmology 02/11/13 Denise Woodson APRN ESTHETIC DERMATOLOGIST [address] [address] [place] [address] PCP - General Family Practice 09/21/20 Denise Woodson APRN ESTHETIC DERMATOLOGIST [address] [place] [address] Assigned PCP 07/17/20 Usha Simon APRN ESTHETIC DERMATOLOGIST [address] 867185 Nurse Practitioner Neurological Surgery 01/24/24 Dangelo Salinas MD [address] [place] [address] Neurology 01/27/24 Anastasia Stearns, RN Lead Rocket Engine Tester 02/06/24 Germaine Aleman, W Community Health Worker Primary Care - CC 02/18/24 Lisa Zambrano MD 6405 [facility] [address] [place] 259795 Assigned Heart and Vascular Provider 05/08/24 07/07/24 Raul Hoyos MD [address] 098165 Assigned Neuroscience Provider 05/08/24 07/07/24 Joya Lira RPH [address] [place] [address] Pharmacist Pharmacist 05/25/24 Joya Lira RPH [address] [place] [address] Assigned MTM Pharmacist 06/08/24 Fabi Coates MD 420 [facility] 75 [place] [address] Genetics, Clinical 06/18/24 Robin Zepeda MD 909 [facility] LS9882[place] [address] Assigned Neuroscience Provider 07/08/24 08/07/24 Danna Cardenas PA-C 6405 [place] [address] Assigned Heart and Vascular Provider 07/08/24 Felicita Desai RN Lead Rocket Engine Tester 07/14/24 07/28/24 Arthur Salas [facility] [address] [place] [address] Assigned Behavioral Health Provider 08/08/24 Randy Maradiaga DO [address] [place] [address] Assigned Neuroscience Provider 08/08/24 Tete Wang MD [address] [place] [address] Genetics, Clinical 10/30/24 documented as of this encounter
--- OUTSIDE RECORDS SUMMARY | 2024-11-05 13:07 | XMS_ITS | Encounter Summary ---
Author Organization [place] Address [address] [place] [address] Care Team Providers Care Cardiac Rehab Nurse Name Role Phone Yung Madrigal MD Unavailable Unavailable Winston Villatoro OD Unavailable [phone] Denise Woodson APRN HEARING AID REPAIRER Unavailable [phone] Denise Woodson APRN HEARING AID REPAIRER Primary Care Provider Usha Simon APRN HEARING AID REPAIRER Unavailable [phone] Dangelo Salinas MD Unavailable Usha Simon APRN HEARING AID REPAIRER Unavailable Anastasia Stearns RN Unavailable Germaine Aleman CHW Unavailable +[phone] Robin Zepeda MD Unavailable +[phone] Lisa Zambrano MD Unavailable Raul Hoyos MD Unavailable Joya Lira [facility] Unavailable +[phone] Joya Lira Joleen Unavailable Fabi Coates MD Unavailable [phone] Robin Zepeda MD Unavailable Danna Cardenas PA-C Unavailable Felicita Desai RN Unavailable Unavailab Arthur Rios Unavailable +[phone] Randy Maradiaga DO Unavailable + Tete Wang MD Unavailable [phone] Reason for Visit * Reason Comments Medication Refill Encounter Details Date Type Department Care Team (Late st Contact Info) Description 06/11/2021 Refill [facility] [address] [facility] [address] [place] [phone] Denise Woodson, [place] HEARING AID REPAIRER [address] [place] [place] [id number] Medication Refill Social History Tobacco Use Types Packs/Day Years Used Date Smoking Tobacco: Never Smokeless Tobacco: Never Alcohol Use Standard Drinks/Week Comments Not Currently 0 (1 standard drink = 0.6 oz pur e alcohol) minimal PHQ-2 Answer Date Recorded PHQ-2 Score 0 01/04/2021 Comments No Sex and Gender Information Value Date Recorded Sex Assigned at Not on file Legal Sex Female 4:05 AM SILVER SOLDERER Gender Identity Not on file Sexual Orientation Not on file 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 [place] [phone] Lisa Zambrano MD [address] [place] [address] 12/03/2024 7:00 AM CDT Virtual Visit [facility] Neurology [address] [place] [phone] Randy Maradiaga DO [address] [place] [address] 234635 12/09/2024 12:45 PM CDT Office Visit [facility] [address] [place] [phone] Tete Wang MD [address] [place] [address] 070414 12/09/2024 1:15 PM CDT Office Visit [facility] [address] [place] [address] [phone] Tete Wang MD [address] [place] [address] [id number] 12/15/2024 3:00 PM CDT Virtual Visit [facility] [address] [place] [phone] Denise Woodson APRN [facility] [address] [place], [place] 1546768 01/19/2025 PRE VISIT [facility] [address] [phone] Any Joiner MD [address] [place] [address] 662485 *-*INCOMING RECORDS*-* 01/19/2025 3:00 PM CDT Orders Only [facility] Pulmonary Function Testing [place] [address] [facility] 3rd [place] [phone] 01/19/2025 4:00 PM CDT Office Visit [facility] [address] [phone] Any Joiner MD [address] [facility] 276 [place], [place] 507805 06/01/2025 11:15 AM CDT Appointment [facility] Imaging [address] [place] [address] Robin Zepeda MD [address] [place] [address] 235355 06/04/2025 11:00 AM CDT Office Visit [facility] Neurosurgery Clinic [address] [phone] Robin Zepeda MD [address] [place] [address] 350015 Usha Simon APRN [address] 672645 documented as of this encounter Visit Diagnoses Diagnosis Insomnia, unspecified type documented in this encounter Additional Health Concerns Infection Onset Date Last Indicated Resolved Time Rule Out COVID-19 09/13/2024 09/13/2024 09/13/2024 12:31 PM SILVER SOLDERER Assessment Noted Time PHQ-9 Depression Total Score: 0 01/05/20 21 9:31 AM CDT documented as of this encounter Care Teams Cardiac Rehab Nurse Relationship Specialty Start Date End Date Yung Madrigal MD RETIRED PCP - Orthopaedics Orthopedics 08/26/12 01/20/24 Winston Villatoro OD [facility] [place] [address] [place] [address] PCP - Ophthalmology Ophthalmology 02/11/13 Denise Woodson APRN HEARING AID REPAIRER [address] [place] [address] PCP - General Family Practice 09/21/20 Denise Woodson APRN HEARING AID REPAIRER [address] [place] [address] Assigned PCP 07/17/20 Usha Simon APRN HEARING AID REPAIRER [address] [place] [address] 743325 Nurse Practitioner Neurological Surgery 01/24/24 Dangelo Salinas MD [address] [place], [place] [phone] Neurology 01/27/24 Usha Simon APRN HEARING AID REPAIRER [address] 524315 Assigned Neuroscience Provider 02/06/24 03/07/24 Anastasia Stearns, RN Lead General Internist And Physician Leader 02/06/24 Germaine Aleman, W Community Health Worker Primary Care - CC 02/18/24 Robin Zepeda MD [address] 151415 Assigned Neuroscience Provider 03/08/24 05/07/24 Lisa Zambrano MD [address] [facility] [address] [place] [address] Assigned Heart and Vascular Provider 05/08/24 07/07/24 Raul Hoyos MD [address] [address] Assigned Neuroscience Provider 05/08/24 07/07/24 Joya Lira [facility] [address] [facility] [address] Pharmacist Pharmacist 05/25/24 Joya Lira [facility] [address] [address] Assigned MTM Pharmacist 06/08/24 Fabi Coates MD [address] [place] [address] 75 [place] [address] Genetics, Clinical 06/18/24 Robin Zepeda MD [address] [place] [address] Assigned Neuroscience Provider 07/08/24 08/07/24 Danna Cardenas PA-C 6405 [place] [address] Assigned Heart and Vascular Provider 07/08/24 Felicita Desai RN Lead General Internist And Physician Leader 07/14/24 07/28/24 Arthur Salas [facility] [address] [place] [address] Assigned Behavioral Health Provider 08/08/24 Randy Maradiaga DO 909 [place] [address] Assigned Neuroscience Provider 08/08/24 Tete Wang MD 2450 [place], [place] 159844 Genetics, Clinical 10/30/24 documented as of this encounter
--- OUTSIDE RECORDS SUMMARY | 2024-11-05 13:07 | XMS_ITS | Encounter Summary ---
Author Organization [place] Address [address] [place] [address] Care Team Providers Care Retail Wireless Associate Name Role Phone Winston Villatoro OD Unavailable [phone] Denise Woodson APRN FINANCE ACCOUNTING INTERNSHIP Unavailable [phone] Denise Woodson APRN FINANCE ACCOUNTING INTERNSHIP Primary Care Provider Usha Simon APRN FINANCE ACCOUNTING INTERNSHIP Unavailable + [phone] Dangelo Salinas MD Unavailable Anastasia Stearns RN Unavailable [phone] Germaine Aleman [facility] Unavailable +[phone] Lisa Zambrano MD Unavailable + [phone] Raul Hoyos MD Unavailable [phone] Joya Lira [facility] Unavailable [phone] Joya Lira [facility] Unavailable [phone] Fabi Coates MD Unavailable [phone] Robin Zepeda MD Unavailable [phone] Danna Cardenas PA-C Unavailable +[phone] Felicita Desai RN Unavailable Unavailab Arthur Rios Unavailable +[phone] Randy Maradiaga DO Unavailable + Tete Wang MD Unavailable Encounter Details Date Type Department Care Team (Late st Contact Info) Description 07/07/2024 Ajay Medical Advice [facility] Neurology Clinic [address] [place] [phone] Liliane Cobos Social History Tobacco Use Types [...] Answer Date Recorded PHQ-2 Score 2 07/02/2024 [facility] [place] [facility] ional [facility] - Occupational Stress [...] on file Legal Sex Female 4:05 AM CONTAINER FINISHER Gender Identity Not on file Sexual Orientation Not on file 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 [place] [phone] Lisa Zambrano MD [address] [place] [id number] 12/03/2024 7:00 AM CDT Virtual Visit [facility] Neurology [address] [phone] Randy Maradiaga, [address] [address] 12/09/2024 12:45 PM CDT Office Visit [facility] [address] [place] [address] [phone] Tete Wang MD [address] [place] [address] 12/09/2024 1:15 PM CDT Office Visit [facility] [address] [place] [address] [phone] Tete Wang MD [address] [place] [address] 12/15/2024 3:00 PM CDT [facility] [address] [place] [phone] Denise Woodson APRN FINANCE ACCOUNTING INTERNSHIP [address] [place] [place], [place] 3594268 01/19/2025 PRE VISIT [facility] Lung Science [address] [phone] Any Joiner MD [address] [place] [address] 449355 *-*INCOMING RECORDS*-* 01/19/2025 3:00 PM CDT Orders Only [facility] Pulmonary Function Testing [address] [phone] 01/19/2025 4:00 PM CDT Office Visit [facility] Lung Science [address] [phone] Any Joiner MD [address] [place] [address] 978575 06/01/2025 11:15 AM CDT Appointment [facility] [address] [facility] [address] [place] [phone] Robin Zepeda MD [address] [place] [address] 543415 06/04/2025 11:00 AM CDT Office Visit [address] [phone] Robin Zepeda MD [address] [place] [address] 251815 Usha Simon APRN [employer] [address] [place] [address] documented as of this encounter Visit Diagnoses Not on filedocumented in this encounter Additional Health Concerns Infection Onset Date Last Indicated Resolved Time Rule Out COVID-19 09/13/2024 09/13/2024 09/13/2024 12:31 PM CONTAINER FINISHER Assessment Noted Time PHQ-9 Depression Total Score: 5 03/17/20 24 9:45 AM CDT documented as of this encounter Care Teams Retail Wireless Associate Relationship Specialty Start Date End Date ShaunaWinston OD [facility] [place] [address] [place] [address] PCP - Ophthalmology Ophthalmology 02/11/13 Denise Woodson APRN FINANCE ACCOUNTING INTERNSHIP [address] [place] [address] PCP - General Family Practice 09/21/20 Denise Woodson APRN FIN[employer] ACCOUNTING INTERNSHIP [address] [place] [address] Assigned PCP 07/17/20 Usha Simon APRN FINANCE ACCOUNTING INTERNSHIP 909 [facility] [id number] [place] [address] Nurse Practitioner Neurological Surgery 01/24/24 Dangelo Salinas MD [address] [place] [address] Neurology 01/27/24 Anastasia Stearns, RN Lead Lens Grinder And Polisher 02/06/24 Germaine Aleman, CHW Community Health Worker Primary Care - CC 02/18/24 Lisa Zambrano MD [address] [facility] [address] [place] [address] Assigned Heart and Vascular Provider 05/08/24 07/07/24 Raul Hoyos MD 909 [facility] [place] [address] Assigned Neuroscience Provider 05/08/24 07/07/24 Joya Lira [facility] [address] [place] [address] Pharmacist Pharmacist 05/25/24 Joya Lira [facility] [address] [place] [address] Assigned MTM Pharmacist 06/08/24 Fabi Coates MD [address] [place] [address] 75 [place] [address] Genetics, Clinical 06/18/24 Robin Zepeda MD 909 [facility]2121[place], [place] [address] Assigned Neuroscience Provider 07/08/24 08/07/24 Danna Cardenas PA-C 6405 [place] [address] Assigned Heart and Vascular Provider 07/08/24 Felicita Desai, RN Lead Lens Grinder And Polisher 07/14/24 07/28/24 Arthur Salas, [facility] [address] [place] [address] Assigned Behavioral Health Provider 08/08/24 Randy Maradiaga DO 909 [place] [address] Assigned Neuroscience Provider 08/08/24 Tete Wang MD 2450 [place] [address] Genetics, Clinical 10/30/24 documented as of this encounter
--- OUTSIDE RECORDS SUMMARY | 2024-11-05 13:07 | XMS_ITS ---
Author Organization [place] Address [address] [place] [address] Care Team Providers Care Purchaser Automotive Parts Name Role Phone Shauna Winston M OD Unavailable [phone] Denise Woodson APRN BARN AND PROPERTY MANAGER Unavailable +[phone] Denise Woodson APRN BARN AND PROPERTY MANAGER Primary Care Provider Usha Simon APRN BARN AND PROPERTY MANAGER Unavailable + [phone] Dangelo Salinas MD Unavailable Anastasia Stearns RN Unavailable +[phone] [facility] Unavailable [phone] Joya Lira [facility] Unavailable [phone] Joya Lira [facility] Unavailable [phone] Fabi Coates MD Unavailable [phone] Danna Cardenas PA-C Unavailable [phone] Arthur Salas FAST FOOD SHIFT LEAD Unavailable [phone] Randy Maradiaga DO Unavailable + Tete Wang MD Unavailable [phone] Primary Care Care Coordination Status:Maintenance (Active) Start date:02/06/2024 Enrollment date:02/07/2024 Case Team Name Relationship Phone Anastasia Stearns RN Lead Technical Designer(Respons ible Staff) [phone] Germaine Aleman CHW Community Health Worker Continued Care and Services Coordination
--- OUTSIDE RECORDS SUMMARY | 2024-11-05 13:07 | XMS_ITS | Encounter Summary ---
Author Organization [place] Address [address] [place] [address] Care Team Providers Care Modeling Analyst Name Role Phone Timmy Perez MD Unavailable Unavailable Yung Madrigal MD Unavailable Unavailable Frw, None Primary Care Provider Unavailabl e Winston Villatoro OD Unavailable [phone] Apple Sykes MD Primary Care Provider Unavailab Westley Vera MD Unavailable [phone] Georgina-Alessandra Gómez APRN PODIATRIST ASSISTANT Primary Car e Provider Serum, Clara Garland MD Primary Care Provider Serum, Clara Garland MD Unavailable [phone] Serum, Clara Garland MD Unavailable +[phone] Denise Woodson APRN PODIATRIST ASSISTANT Unavailable [phone] Denise Woodson APRN PODIATRIST ASSISTANT Primary Care Provider Usha Simon APRN PODIATRIST ASSISTANT Unavailable + [phone] Dangelo Salinas MD Unavailable Usha Simon APRN PODIATRIST ASSISTANT Unavailable + [phone] Anastasia Stearns RN Unavailable [phone] Germaine Aleman CHW Unavailable +[phone] Robin Zepeda MD Unavailable [phone] Lisa Zambrano MD Unavailable [phone] Raul Hoyos MD Unavailable SorayaThiJoya [facility] Unavailable +[phone] Soraya Joya [facility] Unavailable [phone] Fabi Coates MD Unavailable [phone] Robin Zepeda MD Unavailable [phone] Danna Cardenas PA-C Unavailable [phone] Felicita Desai RN Unavailable Unavailab gabino Arthur Salas SUPERVISOR LACE TEARING Unavailable +[phone] Randy Maradiaga DO Unavailable + Tete Wang MD Unavailable +[phone] Encounter Details Date Type Department Care Team (Late st Contact Info) Description 01/30/2006 [facility] [place] Inpatient Dept [address] [place] [phone] Frw, Inpatient Provider Social History Tobacco Use Types Packs/Day Years Used Date Smoking Tobacco: Never Passive Smoke Exposure: Never Smokeless Tobacco: Never Alcohol Use Standard Drinks/Week Comments Not Currently 0 (1 standard drink = 0.6 oz pur e alcohol) minimal Comments No Sex and Gender Information Value Date Recorded Sex Assigned at Not on file Legal Sex Female 4:05 AM SHOE REPAIR SUPERVISOR Gender Identity Not on file Sexual [...] pain. PROCEDURE: TOTAL VAGINAL HYSTERECTOMY. SURGEON: Chris SPECIALIZED DEVELOPER: Radha ANESTHESIA: Spinal ESTIMATED BLOOD LOSS: 100 [...] st Contact Info) Description 11/06/2024 12:00 PM SHOE REPAIR SUPERVISOR Virtual Visit [facility] [address] [place] [phone] Denise Woodson APRN PODIATRIST ASSISTANT [address] [place] [address] 12/01/2024 4:00 PM CDT Virtual Visit [facility] Vascular Clinic [place] [address] [place] [phone] Lisa Zambrano MD [address] [place] [address] 12/03/2024 7:00 AM CDT Virtual Visit [facility] Neurology Clinic [address] [phone] Randy Maradiaga [address] 867805 12/09/2024 12:45 PM CDT Office Visit [facility] [address] [place] [phone] Tete Wang MD [address] [place] [address] 12/09/2024 1:15 PM CDT Office Visit [facility] Pediatric Specialty Clinic [address] [place] [address] [phone] Tete Wang MD [address] [place] [address] 12/15/2024 3:00 PM CDT Virtual Visit [facility] [address] [place] [address] Denise Woodson APRN [facility] [address] [place] [address] 01/19/2025 PRE VISIT [facility] for Lung Science and Health [address] [phone] Any Joiner MD [address] [place] [address] 494025 *-*INCOMING RECORDS*-* 01/19/2025 3:00 PM CDT Orders Only [facility] Pulmonary Function Testing [address] [place] [phone] 01/19/2025 4:00 PM CDT Office Visit [facility] for [facility] Health [address] [phone] Any Joiner MD [address] [place] [address] 06/01/2025 11:15 AM CDT Appointment [facility] [address] [place] [phone] Robin Zepeda MD [address] [place] [address] 618785 06/04/2025 11:00 AM CDT Office Visit [facility] Neurosurgery [address] [phone] Robin Zepeda MD [address] [place] [address] Usha Simon APRN [address] 467655 documented as of this encounter Visit Diagnoses Not on filedocumented in this encounter Additional Health Concerns Infection Onset Date Last Indicated Resolved Time Rule Out COVID-19 09/13/2024 09/13/2024 09/13/2024 12:31 PM SHOE REPAIR SUPERVISOR documented as of this encounter Care Teams Modeling Analyst Relationship Specialty Start Date End Date Timmy Perez MD PCP - Obstetrics/Gynecology 03/02/08 08/07/15 Yung Madrigal MD RETIRED PCP - Orthopaedics Orthopedics 08/26/12 01/20/24 Frw, None PCP - General Family Practice 08/26/12 05/03/13 Winston Villatoro, OD [facility] [place] [address] [place] [address] PCP - Ophthalmology Ophthalmology 02/11/13 Apple Sykes MD [facility] [place] [address] [place] [address] PCP - General Family Practice 05/04/13 10/25/16 Westley Bates MD XXX RETIRED XXX [address] [place] [address] PCP - ENT Otolaryngology 05/14/13 07/28/18 GeorginaAlessandra Celeste APRN PODIATRIST ASSISTANT [facility] [place] [place] [address] PCP - General Nurse Practitioner 10/26/16 02/06/17 Clara Cornell MD [facility] [place] [address] PCP - General Internal Medicine 02/07/17 09/20/20 lCara Cornell MD 8675 [facility] [address] PCP - Assigned PCP 01/17/17 11/18/18 Denise Woodson APRN PODIATRIST ASSISTANT [address] [place] [address] PCP - General Family Practice 09/21/20 Clara Cornell MD 8675 [place] [address] Assigned PCP 01/17/17 07/16/20 Denise Woodson APRN PODIATRIST ASSISTANT [address] [place] [address] Assigned PCP 07/17/20 Usha Simon APRN PODIATRIST ASSISTANT [address] [place] [address] Nurse Practitioner Neurological Surgery 01/24/24 Dangelo Salinas MD [address] [facility] [address] [address] Neurology 01/27/24 Usha Simon APRN PODIATRIST ASSISTANT [address] [place] [address] Assigned Neuroscience Provider 02/06/24 03/07/24 Anastasia Stearns, RN Lead Customer Relations Advisor 02/06/24 Germaine Aleman, W Community Health Worker Primary Care - CC 02/18/24 Robin Zepeda MD [address] [place] [address] Assigned Neuroscience Provider 03/08/24 05/07/24 Lisa Zambrano MD 6[address] [facility] [address] [place] [address] Assigned Heart and Vascular Provider 05/08/24 07/07/24 Raul Hoyos MD 909 [facility] [place] [address] Assigned Neuroscience Provider 05/08/24 07/07/24 Joya Lira [facility] [address] [place] [address] Pharmacist Pharmacist 05/25/24 Joya Lira [facility] [address] [place] [address] Assigned MTM Pharmacist 06/08/24 Fabi Coates MD [address] [place] [address] 75 [place] [address] Genetics, Clinical 06/18/24 Robin Zepeda MD 909 [facility]121[place], [place] [address] Assigned Neuroscience Provider 07/08/24 08/07/24 Danna Cardenas PA-C 6405 [place] [address] Assigned Heart and Vascular Provider 07/08/24 Felicita Desai, RN Lead Customer Relations Advisor 07/14/24 07/28/24 Arthur Salas, [facility] [address] [place] [address] Assigned Behavioral Health Provider 08/08/24 Randy Maradiaga DO 909 [place] [address] Assigned Neuroscience Provider 08/08/24 Tete Wang MD 2450 [place] [address] Genetics, Clinical 10/30/24 documented as of this encounter
--- OUTSIDE RECORDS SUMMARY | 2024-11-05 13:07 | XMS_ITS | Encounter Summary ---
Author Organization [facility] Address [address] [place] [address] Care Team Providers Care Steel Melter Name Role Phone Timmy Perez MD Unavailable Unavailable Yung Madrigal MD Unavailable Unavailable Frw, None Primary Care Provider Unavailabl e Winston Villatoro OD Unavailable [phone] Apple Sykes MD Primary Care Provider Unavailab Westley Vera MD Unavailable [phone] Georgina-Alessandra Gómez APRN INSPECTOR OPTICAL INSTRUMENT Primary Car e Provider Serum, Clara Garland MD Primary Care Provider Serum, Clara Garland MD Unavailable [phone] Serum, Clara Garland MD Unavailable [phone] Denise Woodson APRN INSPECTOR OPTICAL INSTRUMENT Unavailable [phone] Denise Woodson APRN INSPECTOR OPTICAL INSTRUMENT Primary Care Provider Usha Simon APRN INSPECTOR OPTICAL INSTRUMENT Unavailable + [phone] Dangelo Salinas MD Unavailable Usha Simon APRN INSPECTOR OPTICAL INSTRUMENT Unavailable + [phone] Anastasia Stearns RN Unavailable [phone] Germaine Aleman CHW Unavailable +[phone] Robin Zepeda MD Unavailable +[phone] Lisa Zambrano MD Unavailable [phone] Raul Hoyos MD Unavailable [facility] Unavailable [phone] Soraya Joya [facility] Unavailable [phone] Fabi Coates MD Unavailable [phone] Robin Zepeda MD Unavailable [phone] Danna Cardenas PA-C Unavailable +[phone] Felicita Desai RN Unavailable Unavailab gabino Arthur Salas BUSINESS INSIGHT AND ANALYTICS MANAGER Unavailable [phone] Randy Maradiaga DO Unavailable + Tete Wang MD Unavailable [phone] Encounter Details Date Type Department Care Team (Late st Contact Info) Description 01/31/2006 [facility] [place] PLANT PRODUCTION MANAGER [address] [place] [address] Timmy Perez MD Social History Tobacco Use Types Packs/Day Years Used Date Smoking Tobacco: Never Passive Smoke Exposure: Never Smokeless Tobacco: Never Alcohol Use Standard Drinks/Week Comments Not Currently 0 (1 standard drink = 0.6 oz pur e alcohol) minimal Comments No Sex and Gender Information Value Date Recorded Sex Assigned at Not on file Legal Sex Female 4:05 AM HOLTER TECHNICIAN Gender Identity Not on file Sexual [...] st Contact Info) Description 11/06/2024 12:00 PM HOLTER TECHNICIAN Virtual Visit [facility] [address] [place] [address] Denise Woodson APRN [facility] [address] [place] [address] 12/01/2024 4:00 PM CDT Virtual Visit [facility] [place] [address] [place] [phone] Lisa Zambrano MD [address] [place] [address] 12/03/2024 7:00 AM CDT Virtual Visit [facility]rology [facility] [address] 3rd [place] [phone] Randy Maradiaga, [address] [id number] 12/09/2024 12:45 PM CDT Office Visit [facility] [address] [place] [phone] Tete Wang MD [address] [place] [address] 383[address] 12/09/2024 1:15 PM CDT Office Visit [facility] [address] [place] [address] [phone] Tete Wang MD [address] [place] [address] 12/15/2024 3:00 PM CDT Virtual Visit [facility] [address] [place] [phone] Denise Woodson APRN [facility] [address] [place], [place] [id number] 01/19/2025 PRE VISIT [facility] [address] [phone] Any Joiner MD [address] [address] *-*INCOMING RECORDS*-* 01/19/2025 3:00 PM CDT Orders Only [facility] Pulmonary Function Testing [address] 3rd [place] [phone] 01/19/2025 4:00 PM CDT Office Visit [facility] [address] [phone] Any Joiner MD [address] [place] [address] 06/01/2025 11:15 AM CDT Appointment [facility] Imaging [address] [facility] [address] [place] [phone] oRbin Zepeda MD [address] [place] [address] 06/04/2025 11:00 AM CDT Office Visit [facility] Neurosurgery Clinic [address] [phone] Robin Zepeda MD [address] [place] [address] Usha Simon APRN [address] [id number] documented as of this encounter Visit Diagnoses Not on filedocumented in this encounter Additional Health Concerns Infection Onset Date Last Indicated Resolved Time Rule Out COVID-19 09/13/2024 09/13/2024 09/13/2024 12:31 PM HOLTER TECHNICIAN documented as of this encounter Care Teams Steel Melter Relationship Specialty Start Date End Date Timmy Perez MD PCP - Obstetrics/Gynecology 03/02/08 08/07/15 Yung Madrigal MD RETIRED PCP - Orthopaedics Orthopedics 08/26/12 01/20/24 Frw, None PCP - General Family Practice 08/26/12 05/03/13 Winston Villatoro OD [facility] [place] [address] [place] [address] PCP - Ophthalmology Ophthalmology 02/11/13 Apple Sykes MD [facility] [place] [address] [place] [address] PCP - General Family Practice 05/04/13 10/25/16 Westley Bates MD XXX RETIRED XXX [address] [place] [address] PCP - ENT Otolaryngology 05/14/13 07/28/18 Alessandra Cabrales APRN INSPECTOR OPTICAL INSTRUMENT [address] [facility] [place] [address] PCP - General Nurse Practitioner 10/26/16 02/06/17 Clara Cornell MD [address] [facility] [place] [address] PCP - General Internal Medicine 02/07/17 09/20/20 Clara Cornell MD [address] [facility] [address] PCP - Assigned PCP 01/17/17 11/18/18 Denise Woodson APRN INSPECTOR OPTICAL INSTRUMENT [address] [place] [address] PCP - General Family Practice 09/21/20 Clara Cornell MD [address] [place] [address] Assigned PCP 01/17/17 07/16/20 Denise Woodson APRN INSPECTOR OPTICAL INSTRUMENT [address] [place] [address] Assigned PCP 07/17/20 Usah Simon APRN INSPECTOR OPTICAL INSTRUMENT [address] [place] [address] Nurse Practitioner Neurological Surgery 01/24/24 Dangelo Salinas MD [address] [facility] [address] [address] Neurology 01/27/24 Usha Simon APRN INSPECTOR OPTICAL INSTRUMENT [address] [address] Assigned Neuroscience Provider 02/06/24 03/07/24 Anastasia Stearns, RN Lead Decorative Engraver 02/06/24 Germaine Aleman, CHW Community Health Worker Primary Care - CC 02/18/24 Robin Zepeda MD [address] [address] Assigned Neuroscience Provider 03/08/24 05/07/24 Lisa Zambrano MD [address] [place] [address] Assigned Heart and Vascular Provider 05/08/24 07/07/24 Raul Hoyos MD [address]09 [facility], [place] [address] Assigned Neuroscience Provider 05/08/24 07/07/24 Joya Lira [facility] [address] [place] [address] Pharmacist Pharmacist 05/25/24 Joya Lira [facility] [address] [place] [address] Assigned MTM Pharmacist 06/08/24 Fabi Coates MD [address] [place] [address] [address] [place] [address] Genetics, Clinical 06/18/24 Robin Zepeda MD [address] [address] Assigned Neuroscience Provider 07/08/24 08/07/24 Danna Cardenas PA-C [address] [place] [address] Assigned Heart and Vascular Provider 07/08/24 Felicita Desai, RN Lead Decorative Engraver 07/14/24 07/28/24 Arthur Salas, BUSINESS INSIGHT AND ANALYTICS MANAGER [address] [place] [address] Assigned Behavioral Health Provider 08/08/24 Randy Maradiaga DO [address] [place] [address] Assigned Neuroscience Provider 08/08/24 Tete Wang MD [address] [place] [address] Genetics, Clinical 10/30/24 documented as of this encounter
--- OUTSIDE RECORDS SUMMARY | 2024-11-05 13:07 | XMS_ITS | Encounter Summary ---
Author Organization [facility] Address [address] [place] [address] Care Team Providers Care Town Justice Name Role Phone Winston Villatoro OD Unavailable [phone] Denise Woodson APRN SCIENCE JOB TITLES Unavailable [phone] Denise Woodson APRN SCIENCE JOB TITLES Primary Care Provider Usha Simon APRN SCIENCE JOB TITLES Unavailable + [phone] Dangelo Salinas MD Unavailable Anastasia Stearns RN Unavailable Germaine Aleman [facility] Unavailable [phone] Joya Lira [facility] Unavailable [phone] Joya Lira [facility] Unavailable [phone] Fabi Coates MD Unavailable [phone] Danna Cardenas PA-C Unavailable [phone] Arthur Salas FIRE EXTINGUISHER CHARGER Unavailable [phone] Randy Maradiaga DO Unavailable + Tete Wang MD Unavailable [phone] Reason for Visit * Reason Onset Date Comments Forms 10/14/2024 Return to Work Encounter Details Date Type Department Care Team (Late st Contact Info) Description 10/14/2024 MyC Medical Advice [facility] [address] [place] [address] Denise Woodson APRN [facility] [address] [place] [address] Forms (Return to Work) Social History Tobacco Use Types Packs/Day Years [...] Never 09/16/2024 How often do you attend christian or quaker serv ices? 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 Qing Copeland Lead Deputy Director Of Public Works [facility] Phoebe Gross T MASTER * Telephone Encounter - Qing Copeland - 10/15/2024 7:00 AM CST Forms/Letter Request Type of form/letter: OTHER: Return to Work Do we have the form/letter: Yes: [employer] Return to Work/Workability Who is the form from? Patient Where did/will the form come from? form was sent via [employer] When is form/letter needed by: [employer] How would you like the form/letter returned: [employer] Patient Notified form requests are processed in 5-7 business days:N/A Could we send this information to you in [employer] or would you prefer to receive a phone call?: Patient would like to be contacted via [employer] Placed form in provider's basket for review and signature Qing Copeland Lead Deputy Director Of Public Works [facility] Phoebe Gross T MASTER documented in this encounter Plan of Treatment Upcoming Encounters Date Type Department Care Team (Late st Contact Info) Description 11/06/2024 12:00 PM YACHT MASTER Virtual Visit [facility] [address] [place] [phone] Denise Woodson APRN SCIENCE JOB TITLES [address] [place], [place] [address] 12/01/2024 4:00 PM CDT Virtual Visit [facility] Vascular [facility] Kate [address] [place] [phone] Lisa Zambrano MD [address] [place] [address] 12/03/2024 7:00 AM CDT Virtual Visit [facility] Neurology Clinic [address] [phone] Randy Maradiaga DO [address] [place] [address] 12/09/2024 12:45 PM CDT Office Visit [facility] [address] [place] [phone] Tete Wang MD [address] [place] [address] 12/09/2024 1:15 PM CDT Office Visit [facility] [address] [place] [phone] Tete Wang MD [address] [place] [phone] 12/15/2024 3:00 PM CDT Virtual Visit [facility] [address] [place] [address] Denise Woodson APRN [facility] [address] [place], [place] 2002[address] 01/19/2025 PRE VISIT [facility] for Lung Science and Health [address] [phone] Any Joiner MD [address] [place] [address] *-*INCOMING RECORDS*-* 01/19/2025 3:00 PM CDT Orders Only [facility] Pulmonary Function Testing [address] 3rd [place] [address] 01/19/2025 4:00 PM CDT Office Visit [facility] [address] [phone] Any Joiner MD 420 [facility] [address] [place], [place] 901845 06/01/2025 11:15 AM CDT Appointment [facility] [address] [place] [phone] Robin Zepeda MD [address] [place] [address] 06/04/2025 11:00 AM CDT Office Visit [facility] Neurosurgery [address] 3rd [place] [phone] Robin Zepeda MD [address] [place] [address] 744145 Usha Simon APRN SCIENCE JOB TITLES [address] [place] [address] 664435 documented as of this encounter Visit Diagnoses Not on filedocumented in this encounter Additional Health Concerns Assessment Noted Time PHQ-9 Depression Total Score: 0 09/18/19 25 12:46 PM YACHT MASTER documented as of this encounter Care Teams Town Justice Relationship Specialty Start Date End Date Winston Villatoro OD [facility] [place] [address] [place] [address] PCP - Ophthalmology Ophthalmology 02/11/13 Denise Woodson APRN SCI[employer]OB TITLES [address] [place] [address] PCP - General Family Practice 09/21/20 Denise Woodson APRN [employer] TIT[employer] [address] [place] [address] Assigned PCP 07/17/20 Usha Simon APRN SCIENCE JOB TITLES [address] [facility] [id number] [place] [address] Nurse Practitioner Neurological Surgery 01/24/24 Dangelo Salinas MD [address] [place] [address] Neurology 01/27/24 Anastasia Stearns, RN Lead Food And Beverage Coordinator 02/06/24 Germaine Aleman, W Community Health Worker Primary Care - CC 02/18/24 Joya Lira [facility] [address] [place] [address] Pharmacist Pharmacist 05/25/24 Joya Lira [facility] [address] [place] [address] Assigned MTM Pharmacist 06/08/24 Fabi Coates MD [address] [place] [address] 75 [place] [address] Genetics, Clinical 06/18/24 Danna Cardenas PA-C 6405 [place] [address] Assigned Heart and Vascular Provider 07/08/24 Arthur Salas LICSW [address] [address] Assigned Behavioral Health Provider 08/08/24 Randy Maradiaga DO 909 [place] [address] Assigned Neuroscience Provider 08/08/24 Tete Wang MD [facility] [place] [address] Genetics, Clinical 10/30/24 documented as of this encounter
--- OUTSIDE RECORDS SUMMARY | 2024-11-05 13:07 | XMS_ITS | Encounter Summary ---
Author Organization [facility] Address [address] [place] [address] Care Team Providers Care Orthodontist Vice President Name Role Phone Winston Villatoro OD Unavailable [phone] Denise Woodson APRN ARRANGING FUNERAL DIRECTOR Unavailable [phone] Denise Woodson APRN ARRANGING FUNERAL DIRECTOR Primary Care Provider Usha Simon APRN ARRANGING FUNERAL DIRECTOR Unavailable + [phone] Dangelo Salinas MD Unavailable Anastasia Stearns RN Unavailable Germaine Aleman CH Unavailable [phone] Robin Zepeda MD Unavailable Lisa Zambrano MD Unavailable Raul Hoyos MD Unavailable Joya Lira RP Unavailable [phone] Joya Lira RPJoleen Unavailable Fabi Coates MD Unavailable [phone] Robin Zepeda MD Unavailable Danna CardenasC Unavailable [phone] Felicita Desai RN Unavailable Unavailab Arthur Rios Unavailable [phone] Randy Maradiaga DO Unavailable + Reason for Visit * Rehab Therapy Integrated Services (Routine) - Closed Specialty Diagnoses / Procedures Referred By Nila shah Referred To Contact Diagnoses Cerebrovascular accident (CVA), unspecified mechanism (H) [place] [address] [place] [address] Phone: tel: Referral ID Status Reason Start Date Expiration Date Visits Re quested Visits Authorized [id number] Closed 09/16/2023 09/15/2024 365 365 Encounter Details Date Type Department Care Team (Late st Contact Info) Description 04/02/2024 4:15 PM CDT Therapy Visit [facility] [address] [place] [address] Danya You, AMAIRANI [address] [place] [address] Delicia George, PT [address] [place] [address] Cerebrovascular accident (CVA), unspecified mechanism [...] How often do you attend evangelical or holiness serv ices? 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 Don't push to an increase in [...] Progress Notes * Delicia George, PT - 10/15/2024 1:21 PM CST 04/02/24 0500 PT Goal 1 Goal Identifier HEP Goal Description Patient will demonstrate understanding and compliance to her HEP at least 3x per week for continued wellbeing upon discharge from skilled physical therapy. Rationale to maximize safety and independence with performance of ADLs and functional tasks;to maximize safety and independence within the home;to maximize safety and independence within the community;to maximize safety and independence with self cares Goal Progress 03/05/24: compliance to her HEP, feeling better every week; 04/02/24: Feeling good, compliant to HEP, has returned to work15 hours per week and is working on improving tolerance. Target Date 04/07/24 Date Met 04/02/24 PT Goal 2 Goal Identifier DHI Goal Description Patient will complete the DHI with a reduction in score by 18 points or more to demonstrate significant improvement in dizziness and balance for increased safety and independence with functional mobility. Rationale to maximize safety and independence with performance of ADLs and functional tasks;to maximize safety and independence within the home;to maximize safety and independence within the community;to maximize safety and independence with self cares Goal Progress Eval: notes dizziness intermittently, not formally assessed; 03/05/24: already feelingso much better; 34/100; 03/11/24; 24/, progressing and feels like exercises last session helped alot with her dizziness. 04/02/24: 4/100, significant improvement, goal met Target Date 04/07/24 Date Met 04/02/24 PT Goal 3 Goal Identifier DVA Goal Description Patient will complete DVA testing with a loss of 3 lines of less to demonstrate improved gaze stabilization for balance and safety with functional mobility. Rationale to maximize safety and independence with performance of ADLs and functional tasks;to maximize safety and independence within the home;to maximize safety and independence within the community;to maximize safety and independence with self cares Goal Progress Eval: Lack of crisp vision at eval; 03/26/24: Improved vision clarity, 0 line degradation with no dizziness, goal met. Target Date 04/07/24 Date Met 03/26/24 PT Goal 4 Goal Identifier Gait speed Goal Description Patient will ambulate at a normal speed of >1.0 m/s with the least restrictive AD or no AD to demonstrate improved step length and gait speed for increased safety and independencewith crossing the street. Rationale to maximize safety and independence within the home;to maximize safety and independence within the community;to maximize safety and independence with transportation Goal Progress Eval: Patient ambulates with decreased gait speed, moderate path deviation; 02/03/24: 8.9 (comfortable) 0.68 m/s, 6.16 (quickened) 0.99 m/s; 03/26/24: Normal: 1.36 m/s, Fast: 1.85 m/s, goal met Target Date 04/07/24 Date Met 03/26/24 PT Goal 5 Goal Identifier FGA Goal Description Patient will complete the FGA with a score of 24/30 to demonstrate improved balance and decreased risk for falls. Rationale to maximize safety and independence with performance of ADLs and functional tasks;to maximize safety and independence within the home;to maximize safety and independence within the community;to maximize safety and independence with self cares Goal Progress Eval: Patient ambulates with decreased gait speed, moderate path deviation. Stair negotiation with B UE support; 02/03/24: ; 03/26/24: , goal met Target Date 04/07/24 Date Met 03/26/24 DISCHARGE Reason for Discharge: Patient has met all goals. Equipment Issued: HEP Discharge Plan: Patient to continue home program. Referring Provider: Danya You EDO SPECIALIST documented in this encounter Plan of Treatment Upcoming Encounters Date Type Department Care Team (Late st Contact Info) Description 11/06/2024 12:00 PM TORPEDO SPECIALIST Virtual Visit [facility] [address] [place] [phone] Denise Woodson APRN ARRANGING FUNERAL DIRECTOR [address] [place], [place] 1889368 12/01/2024 4:00 PM CDT Virtual Visit [facility] [place] [address] [place] [phone] Lisa Zambrano MD [address] [place] [address] 12/03/2024 7:00 AM CDT Virtual Visit [facility] Neurology Clinic [address] [phone] Randy Maradiaga DO [address] [place] [address]105 12/09/2024 12:45 PM CDT Office Visit [facility] [address] [place] [phone] Tete Wang MD [address] [place] [address] 868364 12/09/2024 1:15 PM CDT Office Visit [facility] [address] [place] [address] [phone] Tete Wang MD [address] [place] [address] 533554 12/15/2024 3:00 PM CDT Virtual Visit [facility] [address] [place] [address] [phone] Denise Woodson APRN [facility] [id number] [place] [address] 01/19/2025 PRE VISIT [facility] [address] [phone] Any Joiner MD [address] [place] [address] *-*INCOMING RECORDS*-* 01/19/2025 3:00 PM CDT Orders Only [facility] Pulmonary Function Testing [address] [place] [phone] 01/19/2025 4:00 PM CDT Office Visit [facility] [address] [phone] Any Joiner MD 420 [facility] [address] [place], [place] [address] 06/01/2025 11:15 AM CDT Appointment [facility] Imaging [address] [place] [phone] Robin Zepeda MD [address] [place] [address] 939845 06/04/2025 11:00 AM CDT Office Visit [facility] Neurosurgery Clinic [address] [phone] Robin Zepeda MD [address] [place] [address] [phone] Usha Simon APRN [address] 864335 documented as of this encounter Visit Diagnoses Diagnosis Cerebrovascular accident (CVA), unspecified mechanism (H)- Primary documented in this encounter Additional Health Concerns Infection Onset Date Last Indicated Resolved Time Rule Out COVID-19 09/13/2024 09/13/2024 09/13/2024 12:31 PM TORPEDO SPECIALIST Assessment Noted Time PHQ-9 Depression Total Score: 5 03/17/20 24 9:45 AM CDT documented as of this encounter Care Teams Orthodontist Vice President Relationship Specialty Start Date End Date Winston Villatoro OD [facility] [place] [address] [place] [address] PCP - Ophthalmology Ophthalmology 02/11/13 Denise Woodson APRN ARRANGING FUNERAL DIRECTOR [address] [place] [address] PCP - General Family Practice 09/21/20 Denise Woodson APRN ARRANGING FUNERAL DIRECTOR [address] [place] [address] Assigned PCP 07/17/20 Usha Simon APRN ARRANGING FUNERAL DIRECTOR [address] [address] Nurse Practitioner Neurological Surgery 01/24/24 Dangelo Salinas MD [address] [place] [address] Neurology 01/27/24 Anastasia Stearns, RN Lead Global Project Manager 02/06/24 Germaine Aleman, W Community Health Worker Primary Care - CC 02/18/24 Robin Zepeda MD [address] [address] Assigned Neuroscience Provider 03/08/24 05/07/24 Lisa Zambrano MD [address] [place] [address] Assigned Heart and Vascular Provider 05/08/24 07/07/24 Raul Hoyos MD [address] [place] [address] Assigned Neuroscience Provider 05/08/24 07/07/24 Joya Lira [facility] [address] [place] [address] Pharmacist Pharmacist 05/25/24 Joya Lira [facility] [address] [place] [address] Assigned MTM Pharmacist 06/08/24 Fabi Coates MD [address] [place] [address] 75 [place] [address] Genetics, Clinical 06/18/24 Robin Zepeda MD [address] [address] Assigned Neuroscience Provider 07/08/24 08/07/24 Danna Cardenas PA-C [address] [place] [address] Assigned Heart and Vascular Provider 07/08/24 Felicita Desai RN Lead Global Project Manager 07/14/24 07/28/24 Arthur Salas, [facility] [address] [place] [address] Assigned Behavioral Health Provider 08/08/24 Randy Maradiaga DO [address] [place] [address] Assigned Neuroscience Provider 08/08/24 documented as of this encounter
--- OUTSIDE RECORDS SUMMARY | 2024-11-05 13:07 | XMS_ITS | Encounter Summary ---
Author Organization [facility] Address [address] [place] [address] Care Team Providers Care Senior Office Assistant Name Role Phone Winston Villatoro OD Unavailable [phone] Denise Woodson APRN PROSTHETICS TECHNICIAN Unavailable [phone] Denise Woodson APRN PROSTHETICS TECHNICIAN Primary Care Provider Usha Simon APRN PROSTHETICS TECHNICIAN Unavailable + [phone] Dangelo Salinas MD Unavailable Anastasia Stearns RN Unavailable [phone] Germaine Aleman [facility] Unavailable [phone] Joya Lira [facility] Unavailable [phone] Joya Lira [facility] Unavailable [phone] Fabi Coates MD Unavailable [phone] Danna Cardenas PA-C Unavailable [phone] Arthur Salas ROCK CRUSHER OPERATOR Unavailable [phone] Randy Maradiaga DO Unavailable + Reason for Visit * Reason Comments Forms Encounter Details Date Type Department Care Team (Late st Contact Info) Description 10/20/2024 2:30 PM DATA LEAD Virtual Visit [address] [phone] Denise Woodson QUALITY ASSURANCE SUPERVISOR TRIM PROSTHETICS TECHNICIAN [address] [place] [address] History of stroke (Primary Dx); Anxiety Social History Tobacco Use Types Packs/Day [...] Never 09/16/2024 How often do you attend mormonism or advent serv ices? 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 How would you like to obtain your AVS? MyChart If the video visit is dropped, the invitation should be resent by: Text to cell phone: [phone] Will anyone else be joining your video visit? No Assessment & Plan Anxiety Stable on citalopram. Side effects resolved with return to previous dose. May end up discontinuing completely. Monitor. - citalopram (CELEXA) 10 MG tablet; Take 0.5 tablets (5 mg) by mouth daily. History of stroke Continued improvement. Increase work hours as requested to 24 hours per week. Monitor. Paperwork completed. The longitudinal plan of care for the diagnosis(es)/condition(s) as documented were addressed during this visit. Due to the added complexity in care, I will continue to support Alcon in the subsequent management and with ongoing continuity of care. BMI Estimated body mass index is 31.47 kg/m?? as calculated from the following: Height as of 09/29/24: 1.74 m (5' 8.5). Weight as of 09/29/24: 95.3 kg (210 lb). Juan M Rondon is a 49 year old, presenting for the following health issues: Forms 10/20/2024 2:20 PM Additional Questions Roomed by DUANE MEJIA Accompanied by SELF 10/20/2024 Forms Any forms needing to be completed Yes 10/20/2024 2:20 PM Patient Reported Additional Medications Patient reports taking the following new medications NA History of Present Illness Reason for visit: Stroke back to work She eats 2-3 servings of fruits and vegetables daily.She consumes 0 sweetened beverage(s) daily.Sheexercises with enough effort to increase her heart rate 10 to 19 minutes per day. She exercises with enough effort to increase her heart rate 3 or less days per week. She is taking medications regularly. Doing well. Interested in work hours increase next week. Would like to increase to 24 hours per week. Still finds if she works more than 2-3 hours at a time she experiences headaches. Continues to try to push this while still managing symptoms. She is happy to be back at work. She decreased her citalopram back to 5mg daily as she started having side effects with the 10mg dose. Her mood is stable. She is hoping to discontinue this completely in the near future as her return to work has helped with mood as anticipated. Review of Systems Constitutional, HEENT, cardiovascular, pulmonary, [...] Signed Electronically by: Denise Woodson APRN CNP LEAD documented in this encounter Plan of Treatment Upcoming Encounters Date Type Department Care Team (Late st Contact Info) Description 11/06/2024 12:00 PM DATA LEAD Virtual Visit [facility] [address] [place] [address] Denise Woodson APRN PROSTHETICS TECHNICIAN [address] [place], [place] [phone] 12/01/2024 4:00 PM CDT Virtual Visit [facility] Vascular Clinic [place] [address] [place] [phone] Lisa Zambrano MD [address] [place] [address] 12/03/2024 7:00 AM CDT Virtual Visit [facility] Neurology Clinic [address] [phone] Randy Maradiaga DO [address] [place] [address] [phone] 12/09/2024 12:45 PM CDT Office Visit [facility] [address] [place] [phone] Tete Wang MD [address] [place] [address] [phone] 12/09/2024 1:15 PM CDT Office Visit [facility] [address] [place] [address],[place] [phone] Tete Wang MD [address] [place] [address] [phone] 12/15/2024 3:00 PM CDT Virtual Visit [facility] [address] [place] [address] Denise Woodson APRN [facility] [address] [place], [place] [phone] 01/19/2025 PRE VISIT [facility] [address] [phone] Any Joiner MD [address] [place] [address] *-*INCOMING RECORDS*-* 01/19/2025 3:00 PM CDT Orders Only [facility] Pulmonary Function Testing [address] 3rd [place] [address] 01/19/2025 4:00 PM CDT Office Visit [facility] Lung Science [facility] Health [address] [phone] Any Joiner MD [address] [place] [address] 06/01/2025 11:15 AM CDT Appointment [facility] Imaging [address] [place] [phone] Robin Zepeda MD [address] [place] [address] 06/04/2025 11:00 AM CDT Office Visit [facility] Neurosurgery Clinic [address] 3rd [place] [phone] Robin Zepeda MD [address] [place] [address] sUha Simon APRN PROSTHETICS TECHNICIAN [address] [place] [address] documented as of this encounter Visit Diagnoses Diagnosis History of stroke- Primary Transient ischemic attack (TIA), and cerebral infarction without residual deficits Anxiety Anxiety state, unspecified documented in this encounter Additional Health Concerns Assessment Noted Time PHQ-9 Depression Total Score: 0 09/18/19 25 12:46 PM DATA LEAD documented as of this encounter Care Teams Senior Office Assistant Relationship Specialty Start Date End Date Winston Villatoro OD [facility] [place] [address] [facility] [address] [place] [address] PCP - Ophthalmology Ophthalmology 02/11/13 Denise Woodson APRN PROSTHETICS TECHNICIAN [address] [place] [address] PCP - General Family Practice 09/21/20 Denise Woodson APRN PROSTHETICS TECHNICIAN [address] [place] [address] Assigned PCP 07/17/20 Usha Simon APRN PROSTHETICS TECHNICIAN 909 [facility] [address] [place], [place] [address] Nurse Practitioner Neurological Surgery 01/24/24 Dangelo Salinas MD [address] [place], [place] [phone] Neurology 01/27/24 Anastasia Stearns, RN Lead Grounds Worker 02/06/24 Germaine Aleman, W Community Health Worker Primary Care - CC 02/18/24 Joya Lira [facility] [address] [place], [place] [phone] Pharmacist Pharmacist 05/25/24 Joya Lira [facility] [address] [place], [place] [phone] Assigned MTM Pharmacist 06/08/24 Fabi Coates MD 420 [facility] 75 [place], [place] 278505 Genetics, Clinical 06/18/24 Danna Cardenas PA-C 6[address] [place], [place] 166105 Assigned Heart and Vascular Provider 07/08/24 Arthur Salas [facility]IC[facility] [address] [place] [address] Assigned Behavioral Health Provider 08/08/24 Randy Maradiaga DO 9 [place] [address] Assigned Neuroscience Provider 08/08/24 documented as of this encounter
--- OUTSIDE RECORDS SUMMARY | 2024-11-05 13:07 | XMS_ITS | Encounter Summary ---
Author Organization [facility] Address [address] [place] [address] Care Team Providers Care Die Sinker Name Role Phone Winston Villatoro OD Unavailable [phone] Denise Woodson APRN AUTOMOBILE APPRAISER Unavailable [phone] Denise Woodson APRN AUTOMOBILE APPRAISER Primary Care Provider Usha Simon APRN AUTOMOBILE APPRAISER Unavailable + [phone] Dangelo Salinas MD Unavailable Anastasia Stearns RN Unavailable [phone] Germaine Aleman [facility] Unavailable [phone] Joya Lira [facility] Unavailable [phone] Joya Lira [facility] Unavailable [phone] Fabi Coates MD Unavailable [phone] Robin Zepeda MD Unavailable [phone] Danna Cardenas PA-C Unavailable [phone] Felicita Desai RN Unavailable Unavailab Arthur RiosSW Unavailable +[phone] Randy Maradiaga DO Unavailable + Tete Wang MD Unavailable +[phone] Encounter Details Date Type Department Care Team (Late st Contact Info) Description 07/18/2024 MyC Medical Advice [facility] [address] [place] [address] Denise Woodson AUTO COLLISION REPAIR INSTRUCTOR AUTOMOBILE APPRAISER [address] [facility] [place] [address] Social History Tobacco Use Types [...] How often do you attend rastafari or temple serv ices? Never 02/28/2024 Do [...] Answer Date Recorded PHQ-2 Score 4 07/16/2024 [facility] [place] of Occupat ional Health - Occupational [...] file Legal Sex Female 4:05 AM MANAGER VALUATION Gender Identity Not on file Sexual Orientation [...] to provider as FYI. Qing Copeland Lead Paper Spooler [facility] documented in this encounter Plan of Treatment Upcoming Encounters Date Type Department Care Team (Late st Contact Info) Description 11/06/2024 12:00 PM MANAGER VALUATION Virtual Visit [facility] [address] [place] [phone] Denise Woodson APRN AUTOMOBILE APPRAISER [address] [place], [place] 4923[address] 12/01/2024 4:00 PM CDT Virtual Visit [facility] [place] [address] [place] [address] Lisa Zambrano MD [address] [place] [address] 12/03/2024 7:00 AM CDT Virtual Visit [facility] Neurology [address] [phone] Randy Maradiaga DO [address] [place] [address] 984795 12/09/2024 12:45 PM CDT Office Visit [facility] [address] [place], [place] [address] [address] [phone] Tete Wang MD [address] [place] [address] 642264 12/09/2024 1:15 PM CDT Office Visit [facility] [address] [place], [place] [address]e [facility] [address] [phone] Tete Wang MD 2450 [place] [address] 12/15/2024 3:00 PM CDT Virtual Visit [facility] [address] [place] [phone] Chintan DeniseBARRERA AUTOMOBILE APPRAISER [address] [place] [address] 01/19/[address] [facility] Lung Science [address] [phone] Any Joiner MD [address] [place] [address]26805 *-*INCOMING RECORDS*-* 01/19/2025 3:00 PM CDT Orders Only [facility] Pulmonary Function Testing [address] [place] [phone] 01/19/2025 4:00 PM CDT Office Visit [facility] Lung Science [address] [phone] Any Joiner MD [address] [place] [address] 06/01/2025 11:[address] [facility] Special[facility] Care [facility] Imaging [address] [place] [address] Robin Zepeda MD [address] [place] [address] [address] 06/04/2025 11:00 AM CDT Office Visit [address] [place] [phone] Robin Zepeda MD [address] [address] Usha Simon APRN AUTOMOBILE APPRAISER [address] [address] documented as of this encounter Visit Diagnoses Not on filedocumented in this encounter Additional Health Concerns Infection Onset Date Last Indicated Resolved Time Rule Out COVID-19 09/13/2024 09/13/2024 09/13/2024 12:31 PM MANAGER VALUATION Assessment Noted Time PHQ-9 Depression Total Score: 14 024 11:46 AM CDT documented as of this encounter Care Teams Die Sinker Relationship Specialty Start Date End Date Winston Villatoro OD [facility] [address] [facility] [address] [place] [address] PCP - Ophthalmology Ophthalmology 02/11/13 Denise Woodson APRN AUTOMOBILE APPRAISER [address] [place] [address] PCP - General Family Practice 09/21/20 Denise Woodson APRN AUTOMOBILE APPRAISER [address] [place] [address] Assigned PCP 07/17/20 Usha Simon APRN AUTOMOBILE APPRAISER [address] [place] [address] Nurse Practitioner Neurological Surgery 01/24/24 Dangelo Salinas MD [address] [place] [address] Neurology 01/27/24 Anastasia Stearns, RN Lead Order Packer Or Packager 02/06/24 Germaine [place], [facility] Community Health Worker Primary Care - CC 02/18/24 Joya Lira [facility] [address] [address] Pharmacist Pharmacist 05/25/24 Joya Lira [facility] [address] [place] [address] Assigned MTM Pharmacist 06/08/24 Fabi Coates MD [address] [place] [address] 75 [place] [address] Genetics, Clinical 06/18/24 Robin Zepeda MD [address] [place] [address], [place] [address] Assigned Neuroscience Provider 07/08/24 08/07/24 Danna Cardenas PA-C 6405 [place] [address] Assigned Heart and Vascular Provider 07/08/24 Felicita Desai RN Lead Order Packer Or Packager 07/14/24 07/28/24 Arthur Salas, [facility] [address] [address] Assigned Behavioral Health Provider 08/08/24 Randy Maradiaga DO [address] [place] [address] 698755 Assigned Neuroscience Provider 08/08/24 Tete Wang MD [address] [place] [address] Genetics, Clinical 10/30/24 documented as of this encounter
--- OUTSIDE RECORDS SUMMARY | 2024-11-05 13:07 | XMS_ITS | Clinical Summary ---
Author Organization [facility] Address [address] [place] [address] Care Team Providers Care Data Integration Developer Name Role Phone Keira Irvin MD Primary [...] DOSEPAK) 4 mg tabletIndication s:AVF (arteriovenous fistula) Take by mouth as instructed per packaging. 21 Tablet 01/09/2024 2:58 PM CDT 01/09/20 24 Active acetaminophen (TYLENOL EXTRA STRGTH) 500 mg tabletIndication s:AVF (arteriovenous fistula) Take 1-2 Tablets (500-1,000 mg) by mouth [...] Name Administration Dates Next Due COVID-19 vaccine ([employer] 30mcg/0.3mL) PF, MDV 07/07/2021 Hepatitis B, Unspecified [...] on file Legal Sex Female 5:27 AM FILM WAXER Gender Identity Not on file Sexual Orientation [...] REFLEX MEASURED LDL Routine 08/03/2011 10:31 AM FILM WAXER Screening for other and unspecified cardiovascular conditions from Last 3 Months or Most Recently Relevant to Health Maintenance Results * LIPID PANEL W REFLEX MEASURED LDL (08/03/2011 10:31 AM FILM WAXER) CHOLESTEROL,TOTAL 171 110 - 199 mg/dL [facility] TRIGLYCERIDES 67 <150 mg/dL [facility] HDL CHOLESTEROL 43 >40 mg/dL [facility] CHOL/HDL RATIO 3.98 <4.51 [facility] LDL CHOLESTEROL 115 <131 mg/dL [facility] PATIENT STATUS Fasting [facility] Blood specimen (specimen) BLOOD SPECIMEN / Unknown 08/03/2011 10:31 AM FILM WAXER 08/03/2011 10:23 AM FILM WAXER us Jasvir Pickens MD CHEMISTRY Final Re sult Performing Organization Address City/State/[facility] Co de Phone Number [facility] [address] [place] [address] from Last 3 Months or Most Recently Relevant to Health Maintenance Insurance [place]IG[place] [id number] Advance Directives * Full Code (Latest Code Status on File) Date Activated Date Inactivated Comments 01/09/2024 7:44 AM 01/09/2024 6:26 PM Question Answer Comments Code Status Discussion: Reviewed Preferences Care Teams Data Integration Developer Relationship Specialty Start Date End Date Keira Irvin MD [address] [place] [address] PCP - General Family Practice 01/08/24
--- OUTSIDE RECORDS SUMMARY | 2024-11-05 13:07 | XMS_ITS | Encounter Summary ---
Author Organization [facility] Address [address] [place] [address] Care Team Providers Care Program Administrator Name Role Phone Timmy Perez MD Unavailable Unavailable Yung Madrigal MD Unavailable Unavailable Frw, None Primary Care Provider Unavailabl e Winston Villatoro OD Unavailable [phone] Apple Sykes MD Primary Care Provider Unavailab Westley Vera MD Unavailable [phone] Georgina-Alessandra Gómez APRN FOOD TRUCK CATERER Primary Car e Provider Serum, Clara Garland MD Primary Care Provider Serum, Clara Garland MD Unavailable [phone] Serum, Clara Garland MD Unavailable [phone] Denise Woodson APRN FOOD TRUCK CATERER Unavailable [phone] Denise Woodson APRN FOOD TRUCK CATERER Primary Care Provider Usha Simon APRN FOOD TRUCK CATERER Unavailable + [phone] Dangelo Salinas MD Unavailable Usha Simon APRN FOOD TRUCK CATERER Unavailable + [phone] Anastasia Stearns RN Unavailable [phone] Germaine Aleman CHW Unavailable [phone] Robin Zepeda MD Unavailable [phone] Lisa Zambrano MD Unavailable [phone] Raul Hoyos MD Unavailable SorayaJoya [facility] Unavailable [phone] SorayaThiJoya [facility] Unavailable [phone] Fabi Coates MD Unavailable [phone] Robin Zepeda MD Unavailable [phone] Danna Cardenas PA-C Unavailable [phone] Felicita Desai RN Unavailable Unavailab Arthur Rios [facility] Unavailable [phone] Randy Maradiaga DO Unavailable + Tete Wang MD Unavailable [phone] Reason for Visit * Reason Onset Date Comments Medication Question 04/21/2013 Farhan Saez [facility] Encounter Details Date Type Department Care Team (Late st Contact Info) Description 04/21/2013 Telephone [facility] [address] [place] [address] Janna Rodriguez, pickup driver Question (Farhan [facility]) Social History Tobacco Use Types Packs/Day Years Used Date Smoking Tobacco: Never Smokeless Tobacco: Never Alcohol Use Standard Drinks/Week Comments Yes 0 (1 standard drink = 0.6 oz pur e alcohol) minimal Comments No Sex and Gender Information Value Date Recorded Sex Assigned at Not on file Legal Sex Female 4:05 AM CEMENTER MACHINE APPLICATOR Gender Identity Not on file Sexual Orientation [...] st Contact Info) Description 11/06/2024 12:00 PM CEMENTER MACHINE APPLICATOR Virtual Visit [facility] [address] [place] [address] Denise Woodson APRN [facility] [address] [place] [address] 12/01/2024 4:00 PM CDT Virtual Visit [facility] [place] [address] [place] [phone] Lisa Zambrano MD [address] [place] [address] 12/03/2024 7:00 AM CDT Virtual Visit [facility] Neurology Clinic [address] 3rd [place] [address] Randy Maradiaga, [address] [place] [address] 857015 12/09/2024 12:45 PM CDT Office Visit [facility] [address],[place] [phone] Tete Wang MD [address] [place] [address] 888064 12/09/2024 1:15 PM CDT Office Visit [facility] Pediatric Specialty Clinic [address] [place] [address] [address]th Fl[address],[place] [phone] Tete Wang MD [address] [place] [address] 12/15/2024 3:00 PM CDT Virtual Visit [facility] [address] [place] [phone] Denise Woodson APRN [facility] [address] [place], [place] 877[address] 01/19/2025 PRE VISIT [facility] Lung Science and Health [address] [phone] Any Joiner MD [address] [place] [address]3225 *-*INCOMING RECORDS*-* 01/19/2025 3:00 PM CDT Orders Only [facility] Pulmonary Function Testing [address] 3rd [place] [phone] 01/19/2025 4:00 PM CDT Office Visit [facility] Lung Science [facility] [address] [phone] Any Joiner MD [address] [place] [address] 322085 06/01/2025 11:15 AM CDT Appointment [facility] Specialty Care Center Imaging [address] [facility] [address] [place] [address] Robin Zepeda MD [address] [place] [address] 06/04/2025 11:00 AM CDT Office Visit [facility] Neurosurgery Clinic [address] 3rd [place] [phone] Robin Zepeda MD [address] [place] [address] Usha Simon APRN FOOD TRUCK CATERER [address] [place] [address] documented as of this encounter Visit Diagnoses Not on filedocumented in this encounter Additional Health Concerns Infection Onset Date Last Indicated Resolved Time Rule Out COVID-19 09/13/2024 09/13/2024 09/13/2024 12:31 PM CEMENTER MACHINE APPLICATOR documented as of this encounter Care Teams Program Administrator Relationship Specialty Start Date End Date Timmy Perez MD PCP - Obstetrics/Gynecology 03/02/08 08/07/15 Yung Madrigal MD RETIRED PCP - Orthopaedics Orthopedics 08/26/12 01/20/24 Frw, None PCP - General Family Practice 08/26/12 05/03/13 Winston Villatoro OD [facility] [place] [address] [place] [address] PCP - Ophthalmology Ophthalmology 02/11/13 Apple Sykes MD [facility] [place] [address] [place] [address] PCP - General Family Practice 05/04/13 10/25/16 Westley Bates MD XXX RETIRED XXX [address] [facility] [address] [place] [address] PCP - ENT Otolaryngology 05/14/13 07/28/18 Alessandra Cabrales APRN FOOD TRUCK CATERER [address] [facility] [place] [address] PCP - General Nurse Practitioner 10/26/16 02/06/17 Clara Cornell MD [address] [facility] [place] [address] PCP - General Internal Medicine 02/07/17 09/20/20 Clara Cornell MD [address] [place], [place] [address] PCP - Assigned PCP 01/17/17 11/18/18 Denise Woodson APRN FOOD TRUCK CATERER [address] [place] [address] PCP - General Family Practice 09/21/20 Clara [place] MD [address] [place] [address] Assigned PCP 01/17/17 07/16/20 Denise Woodson APRN FOOD TRUCK CATERER [address] [place] [address] Assigned PCP 07/17/20 Usha Simon APRN FOOD TRUCK CATERER [address]09 [facility] [place] [address] Nurse Practitioner Neurological Surgery 01/24/24 Dangelo Salinas MD [address] [place] [address] Neurology 01/27/24 Usha Simon APRN FOOD TRUCK CATERER [address] [address] Assigned Neuroscience Provider 02/06/24 03/07/24 Anastasia Stearns, RN Lead Manager Business Operations 02/06/24 Germaine Ale[place], W Community Health Worker Primary Care - CC 02/18/24 Robin Zepeda MD [address] [address] Assigned Neuroscience Provider 03/08/24 05/07/24 Lisa Zambrano MD [address] [place] [address] Assigned Heart and Vascular Provider 05/08/24 07/07/24 Raul Hoyos MD [address] [address] Assigned Neuroscience Provider 05/08/24 07/07/24 Joya Lira RPH [address] [place] [address] Pharmacist Pharmacist 05/25/24 Joya Lira RPH [address] [place] [address] Assigned MTM Pharmacist 06/08/24 Fabi Coates MD 420 [facility] 75 [place] [address] Genetics, Clinical 06/18/24 Robin Zepeda MD 909 [facility] [id number] [place] [address] Assigned Neuroscience Provider 07/08/24 08/07/24 Danna Cardenas PA-C 6405 [place] [address] Assigned Heart and Vascular Provider 07/08/24 eFlicita Desai RN Lead Manager Business Operations 07/14/24 07/28/24 Arthur Salas [facility] [address] [place] [address] Assigned Behavioral Health Provider 08/08/24 Randy Maradiaga DO [address] [place] [address] Assigned Neuroscience Provider 08/08/24 Tete Wang MD [address] [place] [address] Genetics, Clinical 10/30/24 documented as of this encounter
--- OUTSIDE RECORDS SUMMARY | 2024-11-05 13:07 | XMS_ITS | Encounter Summary ---
Author Organization [facility] Address [address] [place] [address] Care Team Providers Care Cleaner Name Role Phone Winston Villatoro OD Unavailable [phone] Denise Woodson APRN HANDLING TECH Unavailable [phone] Denise Woodson APRN HANDLING TECH Primary Care Provider Usha Simon APRN HANDLING TECH Unavailable Dangelo Salinas MD Unavailable Anastasia Stearns RN Unavailable Germaine Aleman [facility] Unavailable [phone] Joya Lira [facility] Unavailable Joya Lira [facility] Unavailable Fabi Coates MD Unavailable [phone] Robin Zepeda MD Unavailable [phone] Danna Cardenas PA-C Unavailable [phone] Arthur Salas Unavailable [phone] Randy Maradiaga DO Unavailable + Tete Wang MD Unavailable [phone] Reason for Visit * Reason Onset Date Comments Forms 07/29/2024 Patient/[employer] - Return to work/ Workability Form Encounter Details Date Type Department Care Team (Late st Contact Info) Description 07/29/2024 MyC Medical Advice [facility] [address] [place] [address] Denise Woodson APRN HANDLING TECH [address] [place] [address] Forms (Patient/[employer] - R... [...] How often do you attend zoroastrianism or oriental orthodox serv ices? Never 02/28/2024 [...] Answer Date Recorded PHQ-2 Score 2 07/30/2024 [facility] of Occupat ional Health [...] on file Legal Sex Female 4:05 AM BOOKING SUPERVISOR Gender Identity Not on file Sexual [...] Workability Form Who is the form from? Patient/[facility] Where did/will the form come from? form was sent via SYSTR[employer] When is form/letter needed by: 08/04/24 How would you like the form/letter returned: Fax to [facility] Employee [facility] (JOSE LUIS on file - 05/21/24),then send form to Pt via SYSTRAN Patient Notified form requests are processed in 5-7 business days:Yes Could we send this information to you in SYSTRAN or would you prefer to receive a phone call?: Patient would prefer a phone call Okay to leave a detailed message?: N/A at Cell number on file: Telephone Information: ING SUPERVISOR documented in this encounter Plan of Treatment Upcoming Encounters Date Type Department Care Team (Late st Contact Info) Description 11/06/2024 12:00 PM BOOKING SUPERVISOR Virtual Visit [facility] [address] [place] [address] Denise Woodson APRN [facility] [address] [place], [place] [phone] 12/01/2024 4:00 PM CDT Virtual Visit [facility] Vascular Clinic [place] [address] [place] [phone] Lisa Zambrano MD [address] [place] [address] 12/03/2024 7:00 AM CDT Virtual Visit [facility] Neurology Clinic [address] 3rd [place] [address] Randy Maradiaga, DO [address] [place] [address] 12/09/2024 12:45 PM CDT Office Visit [facility] Pediatric Specialty Clinic [address] [place] [phone] Tete Wang MD [address] [place] [address] 711724 12/09/2024 1:15 PM CDT Office Visit [facility] Pediatric Specialty Clinic [address] [place] [phone] Tete Wang MD [address] [place] [address] 156714 12/15/2024 3:00 PM CDT Virtual Visit [facility] [address] [place] [address] Denise Woodson APRN [facility] [address] [place] [address] 01/19/2025 PRE VISIT [facility] [address] [address] Any Joiner MD [address] [place] [address] 794245 *-*INCOMING RECORDS*-* 01/19/2025 3:00 PM CDT Orders Only [facility] Pulmonary Function Testing [address] [place] [address] 01/19/2025 4:00 PM CDT Office Visit [facility] Lung Science and Health [address] [address] Any Joiner MD [address] [facility] [address] [place], [place] 5[address] 06/01/2025 11:15 AM CDT Appointment [facility] Imaging [address] [place] [phone] Robin Zepeda MD [address] [place] [address] 551405 06/04/2025 11:00 AM CDT Office Visit [facility] Neurosurgery Clinic [address] 3rd [place] [phone] Robin Zepeda MD [address] [place] [address] 788485 Usha Simon APRN HANDLING TECH [address] [place] [address] documented as of this encounter Visit Diagnoses Not on filedocumented in this encounter Additional Health Concerns Infection Onset Date Last Indicated Resolved Time Rule Out COVID-19 09/13/2024 09/13/2024 09/13/2024 12:31 PM BOOKING SUPERVISOR Assessment Noted Time PHQ-9 Depression Total Score: 14 024 11:46 AM CDT documented as of this encounter Care Teams Cleaner Relationship Specialty Start Date End Date Winston Villatoro OD [facility] [place] [address] [place] [address] PCP - Ophthalmology Ophthalmology 02/11/13 Denise Woodson APRN HANDLING TECH [address] [place] [address] PCP - General Family Practice 09/21/20 Denise Woodson APRN HANDLING TECH [address] [facility] [place] [address] Assigned PCP 07/17/20 Usha Simon APRN HANDLING TECH [address] [address] Nurse Practitioner Neurological Surgery 01/24/24 Dangelo Salinas MD [address] [place], [place] [phone] Neurology 01/27/24 Anastasia Stearns, RN Lead Expanded Function Dental Assistant 02/06/24 Germaine Aleman, W Community Health Worker Primary Care - CC 02/18/24 Joya Lira [facility] [address] [place], [place] [phone] Pharmacist Pharmacist 05/25/24 Joya Lira [facility] [address] [place], [place] [address] Assigned MTM Pharmacist 06/08/24 Fabi Coates MD [address] [place] [address] 75 [place] [address] Genetics, Clinical 06/18/24 Robin Zepeda MD [address] [address] Assigned Neuroscience Provider 07/08/24 08/07/24 Danna Cardenas PA-C 6405 [place] [address] Assigned Heart and Vascular Provider 07/08/24 Arthur Salas [employer] [address] [place] [address] Assigned Behavioral Health Provider 08/08/24 Randy Maradiaga DO 909 [place] [address] Assigned Neuroscience Provider 08/08/24 Tete Wang MD 2450 [place] [address] Genetics, Clinical 10/30/24 documented as of this encounter
--- OUTSIDE RECORDS SUMMARY | 2024-11-05 13:07 | XMS_ITS | Encounter Summary ---
Author Organization [place] Address [address] [place] [address] Care Team Providers Care Food Beverage Supervisor Name Role Phone Winston Villatoro OD Unavailable [phone] Denise Woodson APRN OVER SHORT AND DAMAGE CLERK Unavailable [phone] Denise Woodson APRN OVER SHORT AND DAMAGE CLERK Primary Care Provider Usha Simon APRN OVER SHORT AND DAMAGE CLERK Unavailable Dangelo Salinas MD Unavailable Anastasia Stearns RN Unavailable [phone] Germaine Aleman [facility] Unavailable Joya Lira [facility] Unavailable Joya Lira [facility] Unavailable [phone] Fabi Coates MD Unavailable [phone] Robin Zepeda MD Unavailable Danna Cardenas PA-C Unavailable [phone] Arthur Salas Unavailable [phone] Randy Maradiaga DO Unavailable + Tete Wang MD Unavailable [phone] Encounter Details Date Type Department Care Team (Late st Contact Info) Description 08/01/2024 MyC Medical [facility] [address] [place] [address] Randy Maradiaga, [address] [place] [address] [phone] Social History Tobacco Use Types Packs/Day Years [...] How often do you attend alevism or episcopal serv ices? 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 [place] [phone] Lisa Zambrano MD [address] [place] [address] 12/03/2024 7:00 AM CDT Virtual Visit [facility] Neurology [address] [phone] Randy Maradiaga, [address] [address] 12/09/2024 12:45 PM CDT Office Visit [facility] [address] [place] [address] [phone] Tete Wang MD [address] [place] [address] 995874 12/09/2024 1:15 PM CDT Office Visit [facility] [address] [place] [address] [phone] Tete Wang MD [address] [place] [address] 816474 12/15/2024 3:00 PM CDT Virtual Visit [facility] [address] [place] [phone] Denise Woodson, [place] OVER SHORT AND DAMAGE CLERK [address] [place] [address] 01/19/[address] [facility] and [address] [phone] Any Joiner MD [address] [place] [address] 737475 *-*INCOMING RECORDS*-* 01/19/2025 3:00 PM CDT Orders Only [facility] Pulmonary Function Testing [address] [address] 01/19/2025 4:00 PM CDT Office Visit [facility] [address] [phone] Any Joiner MD [address] [place] [address] 507335 06/01/2025 11:15 AM CDT Appointment [facility] [address] [facility] [address] [place] [phone] Robin Zepeda MD [address] [place] [address] 143305 06/04/2025 11:00 AM CDT Office Visit [facility] [address] [phone] Robin Zepeda MD [address] [place] [address] 792945 Usha Simon APRN OVER SHORT AND DAMAGE CLERK [address] [place] [address] 881315 documented as of this encounter Visit Diagnoses Not on filedocumented in this encounter Additional Health Concerns Infection Onset Date Last Indicated Resolved Time Rule Out COVID-19 09/13/2024 09/13/2024 09/13/2024 12:31 PM PRINT MANAGER Assessment Noted Time PHQ-9 Depression Total Score: 14 024 11:46 AM CDT documented as of this encounter Care Teams Food Beverage Supervisor Relationship Specialty Start Date End Date Winston Villatoro OD [facility] [place] [address] [place] [address] PCP - Ophthalmology Ophthalmology 02/11/13 Denise Woodson APRN OVER SHORT AND DAMAGE CLERK [address] [facility] [place] [address] PCP - General Family Practice 09/21/20 Denise Woodson APRN OVER SHORT AND DAMAGE CLERK [address] [place] [address] Assigned PCP 07/17/20 Usha Simon APRN OVER SHORT AND DAMAGE CLERK 909 [facility] [address] Nurse Practitioner Neurological Surgery 01/24/24 Dangelo Salinas MD [address] [place], [place] [phone] Neurology 01/27/24 Anastasia Stearns, RN Lead Educational Program Assistant 02/06/24 Germaine Aleman, CHW Community Health Worker Primary Care - CC 02/18/24 Joya Lira RPH [address] [place] [address] Pharmacist Pharmacist 05/25/24 Joya Lira [facility] [address] [address] Assigned MTM Pharmacist 06/08/24 Fabi Coates MD [address] [place] [address] 75 [place] [address] Genetics, Clinical 06/18/24 Robin Zepeda MD 9 [facility] [place] [address] Assigned Neuroscience Provider 07/08/24 08/07/24 Danna Cardenas PA-C 6405 [place] [address] Assigned Heart and Vascular Provider 07/08/24 Arthur Salas POOL COORDINATOR [address] [address] Assigned Behavioral Health Provider 08/08/24 Randy Maradiaga DO [address] [place] [address] Assigned Neuroscience Provider 08/08/24 Tete Wang MD 2450 [place], [place] 841314 Genetics, Clinical 10/30/24 documented as of this encounter
--- OUTSIDE RECORDS SUMMARY | 2024-11-05 13:07 | XMS_ITS | Encounter Summary ---
Author Organization [place] Address [address] [place] [address] Care Team Providers Care Bus Driver Supervisor Name Role Phone Winston Villatoro OD Unavailable [phone] Denise Woodson APRN CABINET INSTALLER Unavailable [phone] Denise Woodson APRN CABINET INSTALLER Primary Care Provider Usha Simon APRN CABINET INSTALLER Unavailable Dangelo Salinas MD Unavailable Usha Simon APRN CABINET INSTALLER Unavailable Anastasia Stearns RN Unavailable Germaine Aleman CH Unavailable [phone] Robin Zepeda MD Unavailable Lisa Zambrano MD Unavailable Raul Hoyos MD Unavailable Joya Lira RP Unavailable [phone] Joya Lira RPJoleen Unavailable [phone] Fabi Coates MD Unavailable [phone] Robin Zepeda MD Unavailable [phone] Danna Cardenas PA-C Unavailable [phone] Felicita Desai RN Unavailable Unavailab Arthur Rios [facility] Unavailable [phone] Randy Maradiaga DO Unavailable + Tete Wang MD Unavailable [phone] Encounter Details Date Type Department Care Team (Late Contact Info) Description 01/29/2024 MyC Medical Advice [address] [phone] Danya Restrepo, TECHNICAL MAINTENANCE SPECIALIST Social History Tobacco Use Types Packs/Day Years [...] on file Legal Sex Female 4:05 AM DRIER TENDER Gender Identity Not on file Sexual Orientation Not on file 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 Not on file Not on file Not on file Not on file Not on file Not on file documented as of this encounter Plan of Treatment Upcoming Encounters Date Type Department Care Team (Late Contact Info) Description 11/06/2024 12:00 PM DRIER TENDER Virtual Visit [facility] [address] [place] [address] Denise Woodson APRN [facility] [address] [place], [place] 7080068 12/01/2024 4:00 PM CDT Virtual Visit [facility] Clinic Kate [address] [place] [phone] Lisa Zambrano MD [address] [place] 820035 12/03/2024 7:00 AM CDT Virtual Visit [facility] Neurology Clinic [address] [phone] Randy Maradiaga [address] [address] 12/09/2024 12:45 PM CDT Office Visit [facility] [address] [place] [address] [phone] Tete Wang MD [address] [place] [address] [phone] 12/09/2024 1:15 PM CDT Office Visit [facility] [address] [place] [address] [phone] Tete Wang MD [address] [place] [address] 330704 12/15/2024 3:00 PM CDT Virtual Visit [facility] [address] [place] [phone] Denise Woodson APRN [facility] [address] [place] [address] [phone] 01/19/2025 PRE VISIT [facility] [address] [phone] Any Joiner MD [address] [place] [address] *-*INCOMING RECORDS*-* 01/19/2025 3:00 PM CDT Orders Only [facility] Pulmonary Function Testing [address] [phone] 01/19/2025 4:00 PM CDT Office Visit [facility] [address] [phone] Any Joiner MD 420 [facility] 276 [place] [address] 06/01/2025 11:15 AM CDT Appointment [facility] Imaging [address] [place] [phone] Robin Zepeda MD [address] [place] [address] 990355 06/04/2025 11:00 AM CDT Office Visit [facility] Neurosurgery [address] 3rd [place] [phone] Robin Zepeda MD [address] [place] [address] Usha Simon APRN CABINET INSTALLER [address] [place] [address] documented as of this encounter Visit Diagnoses Not on filedocumented in this encounter Additional Health Concerns Infection Onset Date Last Indicated Resolved Time Rule Out COVID-19 09/13/2024 09/13/2024 09/13/2024 12:31 PM DRIER TENDER Assessment Noted Time PHQ-9 Depression Total Score: 0 06/23/20 21 4:11 PM CDT documented as of this encounter Care Teams Bus Driver Supervisor Relationship Specialty Start Date End Date Winston Villatoro OD [facility] [place] [address] [place] [address] PCP - Ophthalmology Ophthalmology 02/11/13 Denise Woodson APRN CABINET INSTALLER [address] [place] [address] PCP - General Family Practice 09/21/20 Denise Woodson APRN CABINET INSTALLER [address] [place] [address] Assigned PCP 07/17/20 Usha Simon APRN CABINET INSTALLER [address] 789895 Nurse Practitioner Neurological Surgery 01/24/24 Dangelo Salinas MD [address] [place] [address] Neurology 01/27/24 Usha Simon APRN CABINET INSTALLER [address] 928595 Assigned Neuroscience Provider 02/06/24 03/07/24 Anastasia Stearns, RN Lead Milled Rubber Tender 02/06/24 Germaine Aleman, W Community Health Worker Primary Care - CC 02/18/24 Robin Zepeda MD [address] 105455 Assigned Neuroscience Provider 03/08/24 05/07/24 Lsia Zambrano MD [address] [place] [address] Assigned Heart and Vascular Provider 05/08/24 07/07/24 Raul Hoyos MD [address] [facility] [place] [address] Assigned Neuroscience Provider 05/08/24 07/07/24 Joya Lira [facility] [address] [place] [address] Pharmacist Pharmacist 05/25/24 Joya Lira [facility] [address] [place] [address] Assigned MTM Pharmacist 06/08/24 Fabi Coates MD [address] [place] [address] 75 [place] [address] Genetics, Clinical 06/18/24 Robin Zepeda MD [address] [facility] [place], [place] 967825 Assigned Neuroscience Provider 07/08/24 08/07/24 Danna Cardenas PA-C [address] [place] [address] Assigned Heart and Vascular Provider 07/08/24 Felicita Desai RN Lead Milled Rubber Tender 07/14/24 07/28/24 Arthur Salas [facility] [address] [address] Assigned Behavioral Health Provider 08/08/24 Randy Maradiaga DO [address] [place] [address] Assigned Neuroscience Provider 08/08/24 Tete Wang MD [facility] [place] [address] Genetics, Clinical 10/30/24 documented as of this encounter
--- OUTSIDE RECORDS SUMMARY | 2024-11-05 13:08 | XMS_ITS | Encounter Summary ---
Author Organization [place] Address [address] [place] [address]131 Care Team Providers Care Senior Security Architect Name Role Phone Yung Madrigal MD Unavailable Unavailable Winston Villatoro OD Unavailable [phone] Denise Woodson APRN RANGE MANAGER Unavailable [phone] Denise Woodson APRN RANGE MANAGER Primary Care Provider Usha Simon APRN RANGE MANAGER Unavailable [phone] Dangelo Salinas MD Unavailable Usha Simon APRN RANGE MANAGER Unavailable Anastasia Stearns RN Unavailable Germaine Aleman CHW Unavailable [phone] Robin Zepeda MD Unavailable Lisa Zambrano MD Unavailable Raul Hoyos MD Unavailable Joya Lira [facility] Unavailable [phone] Joya Lira Joleen Unavailable Fabi Coates MD Unavailable [phone] Robin Zepeda MD Unavailable [phone] Danna Cardenas PA-C Unavailable [phone] Felicita Desai RN Unavailable Unavailab Arthur Rios Unavailable [phone] Randy Maradiaga DO Unavailable + Tete Wang MD Unavailable [phone] Reason for Visit * Reason Comments Medication Refill Encounter Details Date Type Department Care Team (Late st Contact Info) Description 02/19/2022 Refill [facility] [address] [place] [phone] Denise Woodson, ROLL OVER LOADER [facility] [address] [place] [address] Medication Refill Social History Tobacco [...] on file Legal Sex Female 4:05 AM SHREDDER PICKER Gender Identity Not on file Sexual Orientation Not on file 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 [place] [phone] Lisa Zambrano MD [address] [place] [id number] 12/03/2024 7:00 AM CDT Virtual Visit [facility] Neurology [address] [phone] Randy Maradiaga, [address] [address] 12/09/2024 12:45 PM CDT Office Visit [facility] [address] [place] [address] [phone] Tete Wang MD [address] [place] [address] 035464 12/09/2024 1:15 PM CDT Office Visit [facility] [address] [place] [address] [phone] Tete Wang MD [address] [place] [address] 478564 12/15/2024 3:00 PM CDT Virtual Visit [facility] [address] [place] [phone] Denise Woodson APRN RANGE MANAGER [address] [place] [address] 01/19/2025 PRE VISIT [facility] Lung Science [address] [phone] Any Joiner MD [address] [place] [address] 667965 *-*INCOMING RECORDS*-* 01/19/2025 3:00 PM CDT Orders Only [facility] Pulmonary Function Testing [address] [phone] 01/19/2025 4:00 PM CDT Office Visit [facility] Science [address] [phone] Any Joiner MD [address] [place] [address] 804335 06/01/2025 11:15 AM CDT Appointment [facility] Imaging [address] [facility] [address] [place] [phone] Robin Zepeda MD [address] [place] [address] 899655 06/04/2025 11:00 AM CDT Office Visit [facility] Neurosurgery [address] [phone] Robin Zepeda MD [address] [place] [address] 737775 Usha Simon APRN RANGE MANAGER [address] [place] [address] 070015 documented as of this encounter Visit Diagnoses Diagnosis Moderate persistent asthma without complication Unspecified asthma documented in this encounter Additional Health Concerns Infection Onset Date Last Indicated Resolved Time Rule Out COVID-19 09/13/2024 09/13/2024 09/13/2024 12:31 PM SHREDDER PICKER Assessment Noted Time PHQ-9 Depression Total Score: 0 06/23/20 21 4:11 PM CDT documented as of this encounter Care Teams Senior Security Architect Relationship Specialty Start Date End Date Yung Madrigal MD RETIRED PCP - Orthopaedics Orthopedics 08/26/12 01/20/24 Winston Villatoro OD [facility] [place] [address] [place] [address] PCP - Ophthalmology Ophthalmology 02/11/13 Denise Woodson APRN RANGE MANAGER [address] [place] [address] PCP - General Family Practice 09/21/20 Denise Woodson APRN RANGE MANAGER [address] [place] [address] Assigned PCP 07/17/20 Usha Simon APRN RANGE MANAGER [address] [place] [address] 633305 Nurse Practitioner Neurological Surgery 01/24/24 Dangelo Salinas MD [address] [phone] Neurology 01/27/24 Usha Simon APRN RANGE MANAGER [address] [place] [address] 806265 Assigned Neuroscience Provider 02/06/24 03/07/24 Anastasia Stearns, RN Lead Security Shift Manager 02/06/24 Germaine Aleman, W Community Health Worker Primary Care - CC 02/18/24 Robin Zepeda MD [address] [place] [address] Assigned Neuroscience Provider 03/08/24 05/07/24 Lisa Zambrano MD [address]405 [facility] [address] [place] [address] Assigned Heart and Vascular Provider 05/08/24 07/07/24 Raul Hoyos MD [address] [place] [address] Assigned Neuroscience Provider 05/08/24 07/07/24 Joya Lira Joleen [address] [place] [address] Pharmacist Pharmacist 05/25/24 Joya Lira [facility] [address] [place] [address] Assigned MTM Pharmacist 06/08/24 Fabi Coates MD [address] [place] [address] 75 [place] [address] Genetics, Clinical 06/18/24 Robin Zepeda MD [address] [place] [address] [place] [address] Assigned Neuroscience Provider 07/08/24 08/07/24 Danna Cardenas PA-C 6405 [place] [address] Assigned Heart and Vascular Provider 07/08/24 Felicita Desai, RN Lead Security Shift Manager 07/14/24 07/28/24 Arthur Salas, [facility] [address] [place] [address] Assigned Behavioral Health Provider 08/08/24 Randy Maradiaga DO 909 [place], [place] 462995 Assigned Neuroscience Provider 08/08/24 Tete Wang MD 2450 [place], [place] 964354 Genetics, Clinical 10/30/24 documented as of this encounter
--- OUTSIDE RECORDS SUMMARY | 2024-11-05 13:08 | XMS_ITS | Encounter Summary ---
Author Organization [place] Address [address] [place] [address] Care Team Providers Care Equipment Operator/Laborer/Supervisor Name Role Phone Yung Madrigal MD Unavailable Unavailable Winston Villatoro OD Unavailable [phone] Denise Woodson APRN PASTA PRESS OPERATOR Unavailable [phone] Denise Woodson APRN PASTA PRESS OPERATOR Primary Care Provider Usha Simon APRN PASTA PRESS OPERATOR Unavailable [phone] Dangelo Salinas MD Unavailable Usha Simon APRN PASTA PRESS OPERATOR Unavailable Anastasia Stearns RN Unavailable [phone] Germaine Aleman CHW Unavailable [phone] Robin Zepeda MD Unavailable [phone] Lisa Zambrano MD Unavailable Raul Hoyos MD Unavailable [phone] Joya Lira [facility] Unavailable [phone] Joya Lira Joleen Unavailable Fabi Coates MD Unavailable [phone] Robin Zepeda MD Unavailable Danna Cardenas PA-C Unavailable Felicita Desai RN Unavailable Unavailab Arthur Rios Unavailable [phone] Rnady Maradiaga DO Unavailable + Tete Wang MD Unavailable [phone] Reason for Visit * Reason Onset Date Comments Medication Request 04/20/2021 escitalopram (LEXAPRO) 10 MG tablet Encounter Details Date Type Department Care Team (Late st Contact Info) Description 04/20/[address] [facility] [address] [place] [address] Denise Woodson APRN [facility] [address] [place] [address] Medication Request (escitalopram (LEXAPRO)... 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 [address] [place] [address] Denise Woodson APRN [facility] [address] [place] [address] 12/01/2024 4:00 PM CDT Virtual Visit [facility] Vascular Clinic [place] [address] [place] [phone] Lisa Zambrano MD [address] [place] [address] 12/03/2024 7:00 AM CDT Virtual Visit [facility] Neurology Clinic [address] 3rd [place] [phone] Randy Maradiaga DO [address] [place] [address] 825865 12/09/2024 12:45 PM CDT Office Visit [facility] [address] [place] [address] [phone] Tete Wang MD [address] [place] [address] 12/09/2024 1:15 PM CDT Office Visit [facility] Pediatric Specialty Clinic [address] [place] [address] [phone] Tete Wang MD [address] [place] [address] 203484 12/15/2024 3:00 PM CDT Virtual Visit [facility] [address] [place] [phone] Denise Woodson APRN [facility] [address] [place], [place] 8011668 01/19/2025 PRE VISIT [facility] [address] [address] Any Joiner MD [address] [address] *-*INCOMING RECORDS*-* 01/19/2025 3:00 PM CDT Orders Only [facility] Pulmonary Function Testing [address]rd [place] [address] 01/19/2025 4:00 PM CDT Office Visit [facility] [address] [address] Any Joiner MD [address] [place] [address] 06/01/2025 11:15 AM CDT Appointment [facility] Imaging [address] [place] [phone] Robin Zepeda MD [address] [place] [address] 06/04/2025 11:00 AM CDT Office Visit [facility] Neurosurgery Clinic [address] [phone] Robin Zepeda MD [address] [place] [address] 754815 Usha Simon APRN [address] 738985 documented as of this encounter Visit Diagnoses Diagnosis Generalized anxiety disorder 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, recurrent episode, mild documented in this encounter Additional Health Concerns Infection Onset Date Last Indicated Resolved Time Rule Out COVID-19 09/13/2024 09/13/2024 09/13/2024 12:31 PM POWER PRESS SUPERVISOR Assessment Noted Time PHQ-9 Depression Total Score: 0 01/05/20 21 9:31 AM CDT documented as of this encounter Care Teams Equipment Operator/Laborer/Supervisor Relationship Specialty Start Date End Date Yung Madrigal MD RETIRED PCP - Orthopaedics Orthopedics 08/26/12 01/20/24 Winston Villatoro OD [facility] [place] [address] [place] [address] PCP - Ophthalmology Ophthalmology 02/11/13 Denise Woodson APRN PASTA PRESS OPERATOR [address] [place], [place] [phone] PCP - General Family Practice 09/21/20 Denise Woodson APRN PASTA PRESS OPERATOR [address] [place], [place] 8258468 Assigned PCP 07/17/20 Usha Simon APRN PASTA PRESS OPERATOR [address] 446115 Nurse Practitioner Neurological Surgery 01/24/24 Dangelo Salinas MD [address] [place] [address] Neurology 01/27/24 Usha Simon APRN PASTA PRESS OPERATOR [address] 517965 Assigned Neuroscience Provider 02/06/24 03/07/24 Anastasia Stearns, RN Lead Airveyor Operator 02/06/24 Germaine Aleman, W Community Health Worker Primary Care - CC 02/18/24 Robin Zepeda MD [address] [address] Assigned Neuroscience Provider 03/08/24 05/07/24 Lisa Zambrano MD 6405 [facility] [address] [place] [address] Assigned Heart and Vascular Provider 05/08/24 07/07/24 Raul Hoyos MD [address] [place] [address] Assigned Neuroscience Provider 05/08/24 07/07/24 Joya Lira [facility] [address] [place] [address] Pharmacist Pharmacist 05/25/24 Joya Lira [facility] [address] [place] [address] Assigned MTM Pharmacist 06/08/24 Fabi Coates MD [address] [place] [address] 75 [place] [address] Genetics, Clinical 06/18/24 Robin Zepeda MD [address] [place] [address] Assigned Neuroscience Provider 07/08/24 08/07/24 Danna Cardenas PA-C 6405 [place] [address] Assigned Heart and Vascular Provider 07/08/24 Felicita Desai, RN Lead Airveyor Operator 07/14/24 07/28/24 Arthur Salas, [facility] [address] [place] [address] Assigned Behavioral Health Provider 08/08/24 Randy Maradiaga DO 909 [place], [place] 398965 Assigned Neuroscience Provider 08/08/24 Tete Wang MD 2450 [place], [place] 238714 Genetics, Clinical 10/30/24 documented as of this encounter
--- OUTSIDE RECORDS SUMMARY | 2024-11-05 13:08 | XMS_ITS | Encounter Summary ---
Author Organization [facility] Address [address] [place] [address] Care Team Providers Care Foundry Metallurgist Name Role Phone Yung Madrigal MD Unavailable Unavailable Winston Villatoro OD Unavailable [phone] Serum, Clara Garland MD Primary Care Provider Serum, Clara Garland MD Unavailable [phone] Denise Woodson APRN HEATING AND VENTILATING WORKER Unavailable [phone] Denise Woodson BLEACH PLANT OPERATOR HEATING AND VENTILATING WORKER Primary Care Provider Usha Simon BLEACH PLANT OPERATOR HEATING AND VENTILATING WORKER Unavailable Dangelo Salinas MD Unavailable Usha Simon BLEACH PLANT OPERATOR HEATING AND VENTILATING WORKER Unavailable Anastasia Stearns RN Unavailable [phone] Germaine Aleman CHW Unavailable [phone] Robin Zepeda MD Unavailable [phone] Lisa Zambrano MD Unavailable Raul Hoyos MD Unavailable Joya Lira [facility] Unavailable [phone] [facility] Unavailable Fabi Coates MD Unavailable [phone] Robin Catalan MD Unavailable Danna Cardenas PA-C Unavailable [phone] Felicita Desai RN Unavailable Unavailab Arthur Rios [facility] Unavailable [phone] Randy Maradiaga Unavailable + Tete Wang MD Unavailable [phone] Reason for Visit * Reason Onset Date Comments LAB REQUEST 06/16/2019 Encounter Details Date Type Department Care Team (Late st Contact Info) Description 06/16/2019 MyC Medical Advice [facility] [address] [facility] [address] [place] [address] Serum, Clara Garland MD [address] [place] [address] LAB REQUEST Social History Tobacco [...] on file Legal Sex Female 4:05 AM GLUING MACHINE OFFBEARER Gender Identity Not on file Sexual Orientation Not on file 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 Patient requesting to check TSH and antibodies for pt reported possible yonas's. Pended TSH for provider review. documented in this encounter Plan of Treatment Upcoming Encounters Date Type Department Care Team (Late st Contact Info) Description 11/06/2024 12:00 PM GLUING MACHINE OFFBEARER [facility] [address] [place] [phone] Chintan Denise, BLEACH PLANT OPERATORAda [place] [address] [place], [place] [phone] 12/01/2024 4:00 PM CDT Virtual Visit [facility] Vascular Clinic [place] [address] [place] [phone] Lisa Zambrano MD [address] [place] 776905 12/03/2024 7:00 AM CDT Virtual Visit [facility] Neurology Clinic [address] [phone] Randy Maradiaga, [address] [address] 12/09/2024 12:45 PM CDT Office Visit [facility] [address] [place] [address] [phone] Tete Wang MD [address] [place] [address] 12/09/2024 1:15 PM CDT Office Visit [facility] [address] [place] [address] [phone] Tete Wang MD [address] [place] [address] 12/15/2024 3:00 PM CDT Virtual Visit [facility] [address] [place] [phone] Denise Woodson APRN HEATING AND VENTILATING WORKER [address] [place] [address] 01/19/2025 PRE VISIT [facility] Lung Science [address] [phone] Ayn Joiner MD [address] [place] [address] 293865 *-*INCOMING RECORDS*-* 01/19/2025 3:00 PM CDT Orders Only [facility] Pulmonary Function Testing [address] [phone] 01/19/2025 4:00 PM CDT Office Visit [facility] Lung Science [address] [phone] Any Joiner MD [address] [place] [address] 980595 06/01/2025 11:15 AM CDT Appointment [facility] [address] [facility] [address] [place] [phone] Robin Zepeda MD [address] [place] [address] 615915 06/04/2025 11:00 AM CDT Office Visit [address] [phone] Robin Zepeda MD [address] [place] [address] 158165 Usha Simon APRN HEATING AND VENTILATING WORKER [address] [place] [address] documented as of this encounter Results * Follicle stimulating hormone (06/22/2019 3:36 PM CDT) FSH 9.5 IU/L 06/23/2019 2:32 PM CDT [facility] Comment: FSH Reference Range Female: Follicular 2.5-10.2 Mid-cycle 3.4-33.4 Luteal 1.5-9.1 Postmenopausal 23.0-116.3 Blood specimen (specimen) 06/22/2019 3:36 PM CDT 06/22/2019 3:37 PM CDT Clara Cornell MD LAB - BLOOD ORDERABLES Final Result [facility] [address] [place] [address] * TSH with free T4 reflex FUTURE anytime (06/22/2019 3:36 PM CDT) TSH 3.30 0.40 - 4.00 mU/L 06/23/2019 3:12 PM CDT [facility] Blood specimen (specimen) 06/22/2019 3:36 PM CDT 06/22/2019 3:37 PM CDT Clara Cornell MD LAB - BLOOD ORDERABLES Final Result [facility] [address] [place] [address] documented in this encounter Visit Diagnoses Diagnosis Anti-TPO antibodies present- Primary Other and unspecified nonspecific immunological findings Excessive sweating Generalized hyperhidrosis documented in this encounter Additional Health Concerns Infection Onset Date Last Indicated Resolved Time Rule Out COVID-19 09/13/2024 09/13/2024 09/13/2024 12:31 PM GLUING MACHINE OFFBEARER Assessment Noted Time PHQ-9 Depression Total Score: 0 06/15/20 19 7:09 PM CDT documented as of this encounter Care Teams Foundry Metallurgist Relationship Specialty Start Date End Date Yung Madrigal MD RETIRED PCP - Orthopaedics Orthopedics 08/26/12 01/20/[address] [facility] [place] [address] [place] [address] PCP - Ophthalmology Ophthalmology 02/11/13 Clara Cornell MD [facility] [place] [address] [place] [address] PCP - General Internal Medicine 02/07/17 09/20/20 Denise Woodson APRN HEATING AND VENTILATING WORKER [address] [place] [address] PCP - General Family Practice 09/21/20 Clara Cornell MD 8675 [place] [address] Assigned PCP 01/17/17 07/16/20 Denise Woodson APRN HEATING AND VENTILATING WORKER [address] [place] [address] Assigned PCP 07/17/20 Usha iSmon APRN HEATING AND VENTILATING WORKER [address] [address] Nurse Practitioner Neurological Surgery 01/24/24 Dangelo Salinas MD [address] [address] Neurology 01/27/24 Usha Simon APRN HEATING AND VENTILATING WORKER [address] [address] Assigned Neuroscience Provider 02/06/24 03/07/24 Anastasia Stearns, RN Lead Vault Cashier 02/06/24 Germaine Aleman, [facility] Community Health Worker Primary Care - CC 02/18/24 Robin Zepeda MD [address] [place] [address] Assigned Neuroscience Provider 03/08/24 05/07/24 Lisa Zambrano MD [address] [facility] [address] [place] [address] Assigned Heart and Vascular Provider 05/08/24 07/07/24 Raul Hoyos MD [address] [place] [address] Assigned Neuroscience Provider 05/08/24 07/07/24 Joya Lira Joleen [address] [place] [address] Pharmacist Pharmacist 05/25/[address] [facility] [address] [place] [address] Assigned MTM Pharmacist 06/08/24 Fabi Coates MD [address] [place] [address] 75 [place] [address] Genetics, Clinical 06/18/24 Robin Zepeda MD [address] [facility] [id number] [address] Assigned Neuroscience Provider 07/08/24 08/07/24 Danna Cardenas PA-C 6405 [place] [address] Assigned Heart and Vascular Provider 07/08/24 Felicita Desai, RN Lead Vault Cashier 07/14/24 07/28/24 Arthur Salas, [facility] [address] [place] [address] [phone] Assigned Behavioral Health Provider 08/08/24 Randy Maradiaga DO [address] [place] [address] Assigned Neuroscience Provider 08/08/24 Tete Wang MD 2450 [place], [place] 211754 Genetics, Clinical 10/30/24 documented as of this encounter
--- OUTSIDE RECORDS SUMMARY | 2024-11-05 13:08 | XMS_ITS | Encounter Summary ---
Author Organization [facility] Address [address] [place] [address] Care Team Providers Care High School Science Teacher Name Role Phone Yung Madrigal MD Unavailable Unavailable Winston Villatoro OD Unavailable [phone] Denise Woodson APRN CERTIFIED REGISTERED NURSE ANESTHETIST Unavailable [phone] Denise Woodson APRN CERTIFIED REGISTERED NURSE ANESTHETIST Primary Care Provider Usha Simon APRN CERTIFIED REGISTERED NURSE ANESTHETIST Unavailable [phone] Dangelo Salinas MD Unavailable Usha Simon APRN CERTIFIED REGISTERED NURSE ANESTHETIST Unavailable Anastasia Stearns RN Unavailable [phone] Gremaine Aleman CHW Unavailable Robin Zepeda MD Unavailable Lisa Zambrano MD Unavailable Raul Hoyos MD Unavailable Joya Lira [facility] Unavailable [phone] Joya Lira Joleen Unavailable Fabi Coates MD Unavailable [phone] Robin Zepeda MD Unavailable [phone] Danna Cardenas PA-C Unavailable [phone] Felicita Desai RN Unavailable Unavailab Arthur Rios Unavailable [phone] Randy Maradiaga DO Unavailable + Tete Wang MD Unavailable [phone] Reason for Visit * Reason Onset Date Comments URI 09/21/2020 Encounter Details Date Type Department Care Team (Late Contact Info) Description 09/21/2020 MyC [facility]ice [facility] [address] [place] [address] Denise Woodson APRN [facility] [address] [place] [address] URI Social History Tobacco Use Types Packs/Day Years Used Date Smoking Tobacco: Never Smokeless Tobacco: Never Alcohol Use Standard Drinks/Week Comments Yes 0 (1 standard drink = 0.6 oz pur e alcohol) minimal PHQ-2 Answer Date Recorded PHQ-2 Score 2 07/13/2020 Comments No Sex and Gender Information Value Date Recorded Sex Assigned at Not on file Legal Sex Female 4:05 AM TEAROOM HOST/HOSTESS Gender Identity Not on file Sexual Orientation [...] COVID-19? No / Unsure 09/21/2020 12:04 PM TEAROOM HOST/HOSTESS documented as of this encounter Miscellaneous Notes * Telephone Encounter - Kati Yang RN - 09/21/2020 10:54 AM CST [employer] message sent to patient. Kati Yang RN OOM HOST/HOSTESS documented in this encounter Plan of Treatment Upcoming Encounters Date Type Department Care Team (Late Contact Info) Description 11/06/2024 12:00 PM TEAROOM HOST/HOSTESS Virtual Visit [facility] [place] [address] [place] [phone] Denise Woodson APRN CERTIFIED REGISTERED NURSE ANESTHETIST [address] [place], [place] [phone] 12/01/2024 4:00 PM CDT Virtual Visit [facility]ascular [facility] [place] [address] [place] [phone] Lisa Zambrano MD [address] [place] [address] 12/03/2024 7:00 AM CDT Virtual Visit [facility] Neurology [address] [phone] Randy Maradiaga, [address] [address] 12/09/2024 12:45 PM CDT Office Visit [facility] [address] [place] [phone] Tete Wang MD [address] [place] [address] 12/09/2024 1:15 PM CDT Office Visit [facility] Pediatric Specialty Clinic [address] [place] [address] [phone] Tete Wang MD [address] [place] [address] 405004 12/15/2024 3:00 PM CDT Virtual Visit [facility] [address] [place] [phone] Denise Woodson APRN CERTIFIED REGISTERED NURSE ANESTHETIST [address] [place] [address] 01/19/2025 PRE VISIT [facility] Lung Science [address] [phone] Any Joiner MD [address] [place] [address] 392675 *-*INCOMING RECORDS*-* 01/19/2025 3:00 PM CDT Orders Only [facility] Pulmonary Function Testing [address] [place] [address] 01/19/2025 4:00 PM CDT Office Visit [facility] Science [address] [phone] Any Joiner MD [address] [place] [address] 543515 06/01/2025 11:15 AM CDT Appointment [facility] Imaging [address] [place] [phone] Robin Zepeda MD [address] [place] [address] 731405 06/04/2025 11:00 AM CDT Office Visit [facility] Neurosurgery Clinic [address] [phone] Robin Zepeda MD [address] [place] [address] 448485 Usha Simon APRN CERTIFIED REGISTERED NURSE ANESTHETIST [address] [place] [address] 415385 documented as of this encounter Visit Diagnoses Not on filedocumented in this encounter Additional Health Concerns Infection Onset Date Last Indicated Resolved Time Rule Out COVID-19 09/13/2024 09/13/2024 09/13/2024 12:31 PM TEAROOM HOST/HOSTESS Assessment Noted Time PHQ-9 Depression Total Score: 0 06/15/20 19 7:09 PM CDT documented as of this encounter Care Teams High School Science Teacher Relationship Specialty Start Date End Date Yung Madrigal MD RETIRED PCP - Orthopaedics Orthopedics 08/26/12 01/20/24 Winston Villatoro OD [facility] [place] [address] [facility] [address] [place] [address] PCP - Ophthalmology Ophthalmology 02/11/13 Denise Woodson APRN CERTIFIED REGISTERED NURSE ANESTHETIST [address] [place] [address] PCP - General Family Practice 09/21/20 Denise Woodson APRN CERTIFIED REGISTERED NURSE ANESTHETIST [address] [place] [address] Assigned PCP 07/17/20 Usha Simon APRN CERTIFIED REGISTERED NURSE ANESTHETIST [address] [place] [address] 457795 Nurse Practitioner Neurological Surgery 01/24/24 Dangelo Salinas MD [address] [phone] Neurology 01/27/24 Usha Simon APRN CERTIFIED REGISTERED NURSE ANESTHETIST [address] 848365 Assigned Neuroscience Provider 02/06/24 03/07/24 Anastasia Stearns, RN Lead Organ Pipe Finisher 02/06/24 Germaine Aleman, W Community Health Worker Primary Care - CC 02/18/24 Robin Zepeda MD [address] [place] [address] Assigned Neuroscience Provider 03/08/24 05/07/24 Lisa Zambrano MD [address] [facility] [address] [place] [address] Assigned Heart and Vascular Provider 05/08/24 07/07/24 Raul Hoyos MD [address] [place] [address] Assigned Neuroscience Provider 05/08/24 07/07/24 Joya Lira [facility] [address] [place] [address] Pharmacist Pharmacist 05/25/24 Joya Lira [facility] [address] [place] [address] Assigned MTM Pharmacist 06/08/24 Fabi Coates MD [address] [place] [address] 75 [place] [address] Genetics, Clinical 06/18/24 Robin Zepeda MD [address] [place] [address] Assigned Neuroscience Provider 07/08/24 08/07/24 Danna Cardenas PA-C 6405 [place] [address] Assigned Heart and Vascular Provider 07/08/24 Felicita Desai, RN Lead Organ Pipe Finisher 07/14/24 07/28/24 Arthur Salas, [facility] [address] [place] [address] Assigned Behavioral Health Provider 08/08/24 Randy Maradiaga DO 909 [place] [address] Assigned Neuroscience Provider 08/08/24 Tete Wang MD 2450 [place] [address] Genetics, Clinical 10/30/24 documented as of this encounter
--- OUTSIDE RECORDS SUMMARY | 2024-11-05 13:08 | XMS_ITS | Encounter Summary ---
Author Organization [facility] Address [address] [place] [address]. [place] [address] Care Team Providers Care Control Supervisor Name Role Phone Timmy Perez MD Unavailable Unavailable Encounter Details Date Type Department Care Team (Late st Contact Info) Description 01/17/2012 3:20 PM T [facility] in [address] [phone] Luis Walsh [address] [place] [address] Interface, MD Donavan Social History Tobacco Use Types Packs/Day Years Used Date Smoking Tobacco: Never Passive Smoke Exposure: Never Smokeless Tobacco: Never Alcohol Use Standard Drinks/Week Comments Not Currently 0 (1 standard drink = 0.6 oz pur e alcohol) minimal Comments No Sex and Gender Information Value Date Recorded Sex Assigned at Not on file Legal Sex Female 4:05 AM LIFT SUPERVISOR Gender Identity Not on file Sexual Orientation Not on file 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 [place] [phone] Lisa Zambrano MD [address] [place] [id number] 12/03/2024 7:00 AM CDT Virtual Visit [facility] [address] [phone] Randy Maradiaga, [address] [address] 12/09/2024 12:45 PM CDT Office Visit [facility] [address] [place] [address] [phone] Tete Wang MD [address] [place] [address] 12/09/2024 1:15 PM CDT Office Visit [facility] [address] [place] [address] [phone] Tete Wang MD [address] [place] [address] 12/15/2024 3:00 PM CDT Virtual Visit [facility] [address] [place] [phone] Denise Woodson APRN [facility] [address] [place], [place] [phone] 01/19/2025 PRE VISIT [facility] Lung Science [address] [phone] Any Joiner MD [address] [place] [address] *-*INCOMING RECORDS*-* 01/19/2025 3:00 PM CDT Orders Only [facility] Pulmonary Function Testing [address] [phone] 01/19/2025 4:00 PM CDT Office Visit [facility] Lung Science [address] [phone] Any Joiner MD [address] [place] [address] 234825 06/01/2025 11:15 AM CDT Appointment [facility] Imaging [address] [facility] [address] [place] [phone] Robin Zepeda MD [address] [place] [address] 569[address] 06/04/2025 11:00 AM CDT Office Visit [facility] Neurosurgery [address] [phone] Robin Zpeeda MD [address] [place] [address] Usha Simon APRN [address] 065705 documented as of this encounter Visit Diagnoses Not on filedocumented in this encounter Additional Health Concerns Infection Onset Date Last Indicated Resolved Time Rule Out COVID-19 09/13/2024 09/13/2024 09/13/2024 12:31 PM LIFT SUPERVISOR documented as of this encounter Care Teams Control Supervisor Relationship Specialty Start Date End Date Timmy Perez MD PCP - Obstetrics/Gynecology 03/02/0807/18 documented as of this encounter
--- OUTSIDE RECORDS SUMMARY | 2024-11-05 13:08 | XMS_ITS | Encounter Summary ---
Author Organization [facility] Address [address] [place] [address] Care Team Providers Care Public Safety Police Name Role Phone Timmy Perez MD Unavailable Unavailable Yung Madrigal MD Unavailable Unavailable Winston Villatoro OD Unavailable +[phone] Apple Sykes MD Primary Care Provider Unavailab Westley Vera MD Unavailable +[phone] GeorginaAlessandra Gómez APRN NURSERYMAN ASSISTANT Primary Car e Provider Serum, Clara Garland MD Primary Care Provider Serum, Clara Garland MD Unavailable +[phone] Serum, Clara Garland MD Unavailable [phone] Denise Woodson APRN NURSERYMAN ASSISTANT Unavailable +[phone] Denise Woodson APRN NURSERYMAN ASSISTANT Primary Care Provider Usha Simon APRN NURSERYMAN ASSISTANT Unavailable + [phone] Dangelo Salinas MD Unavailable Usha Simon APRN NURSERYMAN ASSISTANT Unavailable + [phone] Anastasia Stearns RN Unavailable +[phone] Germaine Alemna Unavailable +[phone] Robin Zepeda MD Unavailable +[phone] Lisa Zambrano MD Unavailable + [phone] Raul Hoyos MD Unavailable [phone] SorayaJoya [facility] Unavailable +[phone] SorayaJoya [facility] Unavailable [phone] Fabi Coates MD Unavailable [phone] DuaneRobin MD Unavailable +[phone] Danna Cardenas PA-C Unavailable +[phone] Felicita Desai RN Unavailable Unavailab gabino Arthur Salas METAL FINISHER Unavailable +[phone] Randy Maradiaga DO Unavailable + Tete Wang MD Unavailable [phone] Encounter Details Date Type Department Care Team (Late st Contact Info) Description 05/26/2013 MyC Medical Advice [facility] [address] [place] [address] Yung Madrigal MD RETIRED Social History Tobacco Use Types Packs/Day Years Used Date Smoking Tobacco: Never Smokeless Tobacco: Never Alcohol Use Standard Drinks/Week Comments Yes 0 (1 standard drink = 0.6 oz pur e alcohol) minimal Comments No Sex and Gender Information Value Date Recorded Sex Assigned at Not on file Legal Sex Female 4:05 AM NATURALIST Gender Identity Not on file Sexual Orientation Not on file 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 [place] [phone] Lisa Zambrano MD [address] [place] [address] 12/03/2024 7:00 AM CDT Virtual Visit [facility] Neurology Clinic [address] 3rd [place] [address] Randy Maradiaga, [address] 224705 12/09/2024 12:45 PM CDT Office Visit [facility] [address] [place] [address] [phone] Tete Wang MD [address] [place] [address] 12/09/2024 1:15 PM CDT Office Visit [facility]ty Clinic [address] [place] [address] [phone] Tete Wang MD [address] [place] [address] 506744 12/15/2024 3:00 PM CDT Virtual Visit [facility] [address] [place] [phone] Denise Woodson APRN [facility] [address] [place], [place] 2066768 01/19/2025 PRE VISIT [facility] [address] [phone] Any Joiner MD [address] [address] *-*INCOMING RECORDS*-* 01/19/2025 3:00 PM CDT Orders Only [facility] Pulmonary Function Testing [address] [place] [phone] 01/19/2025 4:00 PM CDT Office Visit [facility] [address] [phone] Any Joiner MD [address] [place] [address] 06/01/2025 11:15 AM CDT Appointment [facility] [address] [place] [phone] Robin Zepeda MD [address] [place] [address] 06/04/2025 11:00 AM CDT Office Visit [facility] Neurosurgery [address] [phone] Robin Zepeda MD [address] [place] [address] 032495 Usha Simon APRN [address] [phone] documented as of this encounter Visit Diagnoses Not on filedocumented in this encounter Additional Health Concerns Infection Onset Date Last Indicated Resolved Time Rule Out COVID-19 09/13/2024 09/13/2024 09/13/2024 12:31 PM NATURALIST documented as of this encounter Care Teams Public Safety Police Relationship Specialty Start Date End Date Timmy Perez MD PCP - Obstetrics/Gynecology 03/02/08 08/07/15 Yung Madrigal MD RETIRED PCP - Orthopaedics Orthopedics 08/26/12 01/20/24 Winston Villatoro OD [facility] [address] [place] [address] PCP - Ophthalmology Ophthalmology 02/11/13 Apple Sykes MD [facility] [address] [place] [address] PCP - General Family Practice 05/04/13 10/25/16 eWstley Bates MD XXX RETIRED XXX [address] [place] [address] PCP - ENT Otolaryngology 05/14/13 07/28/18 [facility] NURSERYMAN ASSISTANT [address] [facility] [place] [id number] PCP - General Nurse Practitioner 10/26/16 02/06/17 Clara Cornell MD [address] [facility] [place] [address] PCP - General Internal Medicine 02/07/17 09/20/20 Clara Cornell MD 8675 [place] [address] PCP - Assigned PCP 01/17/17 11/18/18 Denise Woodson APRN NURSERYMAN ASSISTANT [address] [place] [address] PCP - General Family Practice 09/21/20 Clara Cornell MD 8675 [place] [address] Assigned PCP 01/17/17 07/16/20 Denise Woodson APRN NURSERYMAN ASSISTANT [address] [facility] [place] [place] [address] Assigned PCP 07/17/20 Usha Simon APRN NURSERYMAN ASSISTANT [address] [phone] Nurse Practitioner Neurological Surgery 01/24/24 Dangelo Salinas MD [address] [place], [place] [phone] Neurology 01/27/24 Usha Simon APRN NURSERYMAN ASSISTANT [address] 073705 Assigned Neuroscience Provider 02/06/24 03/07/24 Anastasia Stearns, RN Lead Machining Technician 02/06/24 Germaine [place], W Community Health Worker Primary Care - CC 02/18/24 Robin Zepeda MD [address] 787225 Assigned Neuroscience Provider 03/08/24 05/07/24 Lisa Zambrano MD [address] [place] 083255 Assigned Heart and Vascular Provider 05/08/24 07/07/24 Raul Hoyos MD 909 [facility]121[address]J [place], [place] 499[address] Assigned Neuroscience Provider 05/08/24 07/07/24 Joya Lira [facility] [address] [place] [address] Pharmacist Pharmacist 05/25/24 Joya Lira [facility] [address] [place] [address] Assigned MTM Pharmacist 06/08/24 Fabi Coates MD [address] [place] [address] 75 [place], [place] 198405 Genetics, Clinical 06/18/24 Robin Zepeda MD [address] [place] [address] [address] Assigned Neuroscience Provider 07/08/24 08/07/24 Danna Cardenas PA-C [address] [place] [address] Assigned Heart and Vascular Provider 07/08/24 Felicita Desai RN Lead Machining Technician 07/14/24 07/28/24 Arthur Salas [facility] [address] [address] Assigned Behavioral Health Provider 08/08/24 Randy Maradiaga DO [address] [place] [address] Assigned Neuroscience Provider 08/08/24 Tete Wang MD [address] [place] [address] Genetics, Clinical 10/30/24 documented as of this encounter
--- OUTSIDE RECORDS SUMMARY | 2024-11-05 13:08 | XMS_ITS | Encounter Summary ---
Author Organization [facility] Address [address] [place] [address] Care Team Providers Care Sand Car Worker Name Role Phone Yung Madrigal MD Unavailable Unavailable Winston Villatoro OD Unavailable [phone] Serum, Clara Garland MD Primary Care Provider Serum, Clara Garland MD Unavailable [phone] Denise Woodson APRN VOCATIONAL TECHNICAL EDUCATION DIRECTOR Unavailable [phone] Denise Woodson [employer] M VOCATIONAL TECHNICAL EDUCATION DIRECTOR Primary Care Provider Usha Simon [employer] M VOCATIONAL TECHNICAL EDUCATION DIRECTOR Unavailable Dangelo Salinas MD Unavailable Usha Simon [employer] M VOCATIONAL TECHNICAL EDUCATION DIRECTOR Unavailable Anastasia Stearns RN Unavailable [phone] Germaine Aleman CHW Unavailable [phone] Robin Zepeda MD Unavailable Lisa Zambrano MD Unavailable Raul Hoyos MD Unavailable [phone] Joya Lira [facility] Unavailable [phone] Joya Lira [facility] Unavailable [phone] Fabi Coates MD Unavailable [phone] Robin Catalan MD Unavailable Danna Cardenas PA-C Unavailable Felicita Desai RN Unavailable Unavailab Arthur Rios [facility] Unavailable [phone] LaronRandy bucio Yobany MARTIN Unavailable + Tete Wang MD Unavailable +[phone] Encounter Details Date Type Department Care Team (Late Contact Info) Description 01/21/2019 MyC Medical Advice [address] [place] [address] Phoebe Del Cid Social History [...] on file Legal Sex Female 4:[address] ENGINEER Gender Identity Not on file Sexual Orientation Not on file 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 [place] [phone] Lisa Zambrano MD [address] [place] [address] 12/03/2024 7:00 AM CDT Virtual Visit [facility] Neurology Clinic [address] [place] [phone] Randy Maradiaga DO [address] [place] [address] 397445 12/09/2024 12:45 PM CDT Office Visit [facility]ty Clinic [address] [place] [phone] Tete Wang MD [address] [place] [address] [phone] 12/09/2024 1:15 PM CDT Office Visit [facility]ty Clinic [address] [place] [phone] Tete Wang MD [address] [place] [address] [phone] 12/15/2024 3:00 PM CDT Virtual Visit [facility] [address] [place] [address] Denise Woodson APRN [facility] [address] [place] [address] 01/19/2025 PRE VISIT [facility] [address] [address] Any Joiner MD [address] [place] [address] 136355 *-*INCOMING RECORDS*-* 01/19/2025 3:00 PM CDT Orders Only [facility] Pulmonary Function Testing [address] [place] [phone] 01/19/2025 4:00 PM CDT Office Visit [facility] [address] [phone] Any Joiner MD [address] [facility] [address] [place], [place] [address]85[address] 06/01/2025 11:15 AM CDT Appointment [facility] Center Imaging [address] [place] [address] Robin Zepeda MD [address] [place] [address] 932305 06/04/2025 11:00 AM CDT Office Visit [facility] Neurosurgery Clinic [address] [phone] Robin Zepeda MD [address] [place] [address] 686025 Usha Simon APRN [address] 471605 documented as of this encounter Visit Diagnoses Not on filedocumented in this encounter Additional Health Concerns Infection Onset Date Last Indicated Resolved Time Rule Out COVID-19 09/13/2024 09/13/2024 09/13/2024 12:[address] ENGINEER Assessment Noted Time PHQ-9 Depression Total Score: 0 02/09/20 17 7:29 AM CDT documented as of this encounter Care Teams Sand Car Worker Relationship Specialty Start Date End Date Yung Madrigal MD RETIRED PCP - Orthopaedics Orthopedics 08/26/12 01/20/24 Winston Villatoro OD [facility] [address] [place] [address] PCP - Ophthalmology Ophthalmology 02/11/13 Clara Cornell MD [facility] [address] [place] [address] PCP - General Internal Medicine 02/07/17 09/20/20 Denise Woodson APRN VOCATIONAL TECHNICAL EDUCATION DIRECTOR [address] [place] [address] PCP - General Family Practice 09/21/20 Clara Cornell MD 8675 [place] [address] Assigned PCP 01/17/17 07/16/20 Denise Woodson APRN VOCATIONAL TECHNICAL EDUCATION DIRECTOR [address] [place] [address] Assigned PCP 07/17/20 Usha Simon APRN VOCATIONAL TECHNICAL EDUCATION DIRECTOR [address] [address] Nurse Practitioner Neurological Surgery 01/24/24 Dangelo Salinas MD [address] [place] [address] Neurology 01/27/24 Usha Simon APRN VOCATIONAL TECHNICAL EDUCATION DIRECTOR [address] [address] Assigned Neuroscience Provider 02/06/24 03/07/24 Anastasia Stearns RN Lead Orchard Worker 02/06/24 Germaine [place], W Community Health Worker Primary Care - CC 02/18/24 Robin Zepeda MD [address] [address] Assigned Neuroscience Provider 03/08/24 05/07/24 Lisa Zambrano MD [address] [facility] [address] [place] [address] Assigned Heart and Vascular Provider 05/08/24 07/07/24 Raul Hoyos MD [address] [place] [address] 988995 Assigned Neuroscience Provider 05/08/24 07/07/24 Joya Lira Joleen [address] [address] Pharmacist Pharmacist 05/25/24 Joya Lira Joleen [address] [place] [address] Assigned MTM Pharmacist 06/08/24 Fabi Coates MD [facility] [address] [place] [address] Genetics, Clinical 06/18/24 Robin Zepeda MD [address] [address] Assigned Neuroscience Provider 07/08/24 08/07/24 Danna Cardenas PA-C 6405 [place] [address] Assigned Heart and Vascular Provider 07/08/24 Felicita Desai, RN Lead Orchard Worker 07/14/24 07/28/24 Arthur Salas, [facility] [address] [address] Assigned Behavioral Health Provider 08/08/24 Randy Maradiaga DO [address] [place] [address] Assigned Neuroscience Provider 08/08/24 Tete Wang MD [address] [place] [address] Genetics, Clinical 10/30/24 documented as of this encounter
--- OUTSIDE RECORDS SUMMARY | 2024-11-05 13:08 | XMS_ITS | Encounter Summary ---
Author Organization [facility] Address [address] [place] [address] Care Team Providers Care Eeler Name Role Phone Timmy Perez MD Unavailable Unavailable Yung Madrigal MD Unavailable Unavailable Winston Villatoro OD Unavailable [phone] Apple Sykes MD Primary Care Provider Unavailab Westley Vera MD Unavailable [phone] GeorginaAlessandra Gómez APRN ADOBE LAYER Primary Car e Provider Serum, Clara Garland MD Primary Care Provider Serum, Clara Garland MD Unavailable +[phone] Serum, Clara Garland MD Unavailable +[phone] Denise Woodson APRN ADOBE LAYER Unavailable +[phone] Denise Woodson APRN ADOBE LAYER Primary Care Provider Usha Simon APRN ADOBE LAYER Unavailable + [phone] Dangelo Salinas MD Unavailable Usha Simon APRN ADOBE LAYER Unavailable + [phone] Anastasia Stearns RN Unavailable +[phone] Germaine Aleman Unavailable +[phone] Robin Zepeda MD Unavailable +[phone] Lisa Zambrano MD Unavailable + [phone] Raul Hoyos MD Unavailable [phone] Joya Lira [facility] Unavailable +[phone] SorayaJoya [facility] Unavailable +[phone] Fabi Coates MD Unavailable [phone] DuaneRobin MD Unavailable +[phone] Danna Cardenas PA-C Unavailable +[phone] Felicita Desai RN Unavailable Unavailab Arthur Rios ERP PROGRAMMER Unavailable +[phone] Randy Maradiaga DO Unavailable + Tete Wang MD Unavailable +[phone] Reason for Visit * Reason Onset Date Comments MyChart Communication 05/30/2013 Encounter Details Date Type Department Care Team (Latest Contact Info) Description 05/30/2013 MyC Medical Advice [facility] in [address] [address] Apple Sykes MD MyChart Communication Social History Tobacco Use Types Packs/Day Years Used Date Smoking Tobacco: Never Smokeless Tobacco: Never Alcohol Use Standard Drinks/Week Comments Yes 0 (1 standard drink = 0.6 oz pur e alcohol) minimal Comments No Sex and Gender Information Value Date Recorded Sex Assigned at Not on file Legal Sex Female 4:05 AM VICE PROVOST Gender Identity Not on file Sexual Orientation Not on file 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 [place] [phone] Lisa Zambrano MD [address] [place] [address] 12/03/2024 7:00 AM CDT Virtual Visit [facility] Neurology Clinic [address] 3rd [place] [phone] Randy Maradiaga DO [address] [place] [address] 259255 12/09/2024 12:45 PM CDT Office Visit [facility]ty [facility] [address] [place] [phone] Tete Wang MD [address] [place] [address] 949444 12/09/2024 1:15 PM CDT Office Visit [facility] [address] [place] [phone] Tete Wang MD [address] [place] [address] 509574 12/15/2024 3:00 PM CDT Virtual Visit [facility] [address] [place] [address] Denise Woodson APRN [facility] [address] [place], [place] [phone] 01/19/2025 PRE VISIT [facility] [address] [phone] Any Joiner MD [address] [place] [address] 65[address] *-*INCOMING RECORDS*-* 01/19/2025 3:00 PM CDT Orders Only [facility] Pulmonary Function Testing [address] 3rd [place] [phone] 01/19/2025 4:00 PM CDT Office Visit [facility] [address] [phone] Any Joiner MD [address] [place] [address] 639895 06/01/2025 11:15 AM CDT Appointment [facility] Imaging [address] [place] [phone] Robin Zepeda MD [address] [place] [address] 492105 06/04/2025 11:00 AM CDT Office Visit [facility] Neurosurgery Clinic [address] [phone] Robin Zepeda MD [address] [place] [address] 864245 Usha Simon APRN [address] 329155 documented as of this encounter Visit Diagnoses Not on filedocumented in this encounter Additional Health Concerns Infection Onset Date Last Indicated Resolved Time Rule Out COVID-19 09/13/2024 09/13/2024 09/13/2024 12:31 PM VICE PROVOST documented as of this encounter Care Teams Eeler Relationship Specialty Start Date End Date Timmy Perez MD PCP - Obstetrics/Gynecology 03/02/08 08/07/15 Yung Madrigal MD RETIRED PCP - Orthopaedics Orthopedics 08/26/12 01/20/24 Winston Villatoro, OD [facility] [place] [address] [place] [address] PCP - Ophthalmology Ophthalmology 02/11/13 Apple Sykes MD [facility] [place] [address] [place] [address] PCP - General Family Practice 05/04/13 10/25/16 Westley Bates MD XXX RETIRED XXX [address] [place] [address] PCP - ENT Otolaryngology 05/14/13 07/28/18 [facility] G[facility]mez APRN [facility] [address] [facility] [place] [id number] PCP - General Nurse Practitioner 10/26/16 02/06/17 Clara Cornell MD [address] [facility] [place] [address] PCP - General Internal Medicine 02/07/17 09/20/20 Clara Cornell MD 8675 [place] [address] PCP - Assigned PCP 01/17/17 11/18/18 Denise Woodson APRN [facility] [address] [place] [address] PCP - General Family Practice 09/21/20 Clara Cornell MD 8675 [place] [address] Assigned PCP 01/17/17 07/16/20 Denise Woodson APRN [facility] [address] [place] [address] Assigned PCP 07/17/20 Usha Simon APRN [facility] [address] 280835 Nurse Practitioner Neurological Surgery 01/24/24 Dangelo Salinas MD [address] [place], [place] [phone] Neurology 01/27/24 Usha Simon APRN [facility] [address] 518785 Assigned Neuroscience Provider 02/06/24 03/07/24 Anastasia Stearns, RN Lead Leadership Program Intern 02/06/24 Germaine Aleman, W Community Health Worker Primary Care - CC 02/18/24 Robin Zepeda MD [address] 284205 Assigned Neuroscience Provider 03/08/24 05/07/24 Lisa Zambrano MD [address] [place] [id number] Assigned Heart and Vascular Provider 05/08/24 07/07/24 Raul Hoyos MD 9 [facility] [place] [address] Assigned Neuroscience Provider 05/08/24 07/07/24 Joya Lira [facility] [address] [place] [address] Pharmacist Pharmacist 05/25/24 Joya Lira [facility] [address] [place] [address] Assigned MTM Pharmacist 06/08/24 Fabi Coates MD [address] [place] [address] 75 [place] [address] Genetics, Clinical 06/18/24 Robin Zepeda MD [address] [place] [address] [address] Assigned Neuroscience Provider 07/08/24 08/07/24 Danna Cardenas PA-C [address] [place] [address] Assigned Heart and Vascular Provider 07/08/24 Felicita Desai RN Lead Leadership Program Intern 07/14/24 07/28/24 Arthur Salas [facility] [address] [address] Assigned Behavioral Health Provider 08/08/24 Randy Maradigaa DO 909 [place] [address] Assigned Neuroscience Provider 08/08/24 Tete Wang MD 2450 [place] [address] Genetics, Clinical 10/30/24 documented as of this encounter
--- OUTSIDE RECORDS SUMMARY | 2024-11-05 13:08 | XMS_ITS | Encounter Summary ---
Author Organization [place] Address [address] [place] [address] Care Team Providers Care Global Position System Technician Name Role Phone Timmy Perez MD Unavailable Unavailable Yung Madrigal MD Unavailable Unavailable Winston Villatoro OD Unavailable [phone] Apple Sykes MD Primary Care Provider Unavailab Westley Vera MD Unavailable [phone] GeorginaAlessandra Gómez APRN PROPERTY DISPOSAL OFFICER Primary Car e Provider Serum, Clara Garland MD Primary Care Provider Serum, Clara Garland MD Unavailable [phone] Serum, Clara Garland MD Unavailable [phone] Denise Woodson APRN PROPERTY DISPOSAL OFFICER Unavailable [phone] Denise Woodson APRN PROPERTY DISPOSAL OFFICER Primary Care Provider Usha Simon APRN PROPERTY DISPOSAL OFFICER Unavailable + [phone] Dangelo Salinas MD Unavailable Usha Simon APRN PROPERTY DISPOSAL OFFICER Unavailable + [phone] Anastasia Stearns RN Unavailable +[phone] Germaine Aleman Unavailable +[phone] Robin Zepeda MD Unavailable [phone] Lisa Zambrano MD Unavailable + [phone] Raul Hoyos MD Unavailable SorayaJoya [facility] Unavailable +[phone] SorayaJoya [facility] Unavailable [phone] Fabi Coates MD Unavailable [phone] DuaneRobin MD Unavailable [phone] Danna Cardenas PA-C Unavailable +[phone] Felicita Desai RN Unavailable Unavailab gabino Arthur Salas AUDIO VISUAL AIDE Unavailable +[phone] Randy Maradiaga DO Unavailable + Tete Wang MD Unavailable [phone] Encounter Details Date Type Department Care Team (Late st Contact Info) Description 05/06/2013 MyC Medical Advice [facility] [address] [place] [address] Apple Sykes MD Social History Tobacco Use Types Packs/Day Years Used Date Smoking Tobacco: Never Smokeless Tobacco: Never Alcohol Use Standard Drinks/Week Comments Yes 0 (1 standard drink = 0.6 oz pur e alcohol) minimal Comments No Sex and Gender Information Value Date Recorded Sex Assigned at Not on file Legal Sex Female 4:05 AM GAS LINE SERVICER Gender Identity Not on file Sexual Orientation Not on file 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 documented as of this encounter Plan of Treatment Upcoming Encounters Date Type Department Care Team (Late st Contact Info) Description 11/06/2024 12:00 PM GAS LINE SERVICER Virtual Visit [facility] [address] [place] [address] Denise Woodson APRN [facility] [address] [place] [address] 12/01/2024 4:00 PM CDT Virtual Visit [facility] Vascular Clinic [place] [address] [place] [address] Lisa Zambrano MD [address] [place] [address] 12/03/2024 7:00 AM CDT Virtual Visit [facility] Neurology [address] 3rd [place] [phone] Randy Maradiaga, [address] [place] [address] 670635 12/09/2024 12:45 PM CDT Office Visit [facility]ty [facility] [address] [place] [address] [phone] Tete Wang MD [address] [place] [address] 024044 12/09/2024 1:15 PM CDT Office Visit [facility] [address] [place] [address] [phone] Tete Wang MD [address] [place] [address] 364524 12/15/2024 3:00 PM CDT Virtual Visit [facility] [address] [place] [phone] Denise Woodson APRN [facility] [address] [place] [address] [phone] 01/19/2025 PRE VISIT [facility] [address] [phone] Any Joiner MD [address] [place] [address] *-*INCOMING RECORDS*-* 01/19/2025 3:00 PM CDT Orders Only [facility] Pulmonary Function Testing [address] [phone] 01/19/2025 4:00 PM CDT Office Visit [facility] [address] [phone] Any Joiner MD [address] [place] [address] 062245 06/01/2025 11:15 AM CDT Appointment [facility] Imaging [address] [place] [phone] Robin Zepeda MD [address] [place] [address] 06/04/2025 11:00 AM CDT Office Visit [facility] Neurosurgery [address] [phone] Robin Zepeda MD [address] [place] [address] Usha Simon APRN [address] [address] documented as of this encounter Visit Diagnoses Not on filedocumented in this encounter Additional Health Concerns Infection Onset Date Last Indicated Resolved Time Rule Out COVID-19 09/13/2024 09/13/2024 09/13/2024 12:31 PM GAS LINE SERVICER documented as of this encounter Care Teams Global Position System Technician Relationship Specialty Start Date End Date Timmy Perez MD PCP - Obstetrics/Gynecology 03/02/08 08/07/15 Yung Madrigal MD RETIRED PCP - Orthopaedics Orthopedics 08/26/12 01/20/24 Winston Villatoro OD [facility] [place] [address] [place], [place] [phone] PCP - Ophthalmology Ophthalmology 02/11/13 Apple Sykes MD [facility] [place] [address] [place] [address] PCP - General Family Practice 05/04/13 10/25/16 Westley Bates MD XXX RETIRED XXX [address] [place] [address] PCP - ENT Otolaryngology 05/14/13 07/28/18 GeorginaAlessandra Gómez APRN PROPERTY DISPOSAL OFFICER [address] [facility] [place] [address] PCP - General Nurse Practitioner 10/26/16 02/06/17 Clara Cornell MD [address] [facility] [place] [address] PCP - General Internal Medicine 02/07/17 09/20/20 Clara Cornell MD 8675 [place] [address] PCP - Assigned PCP 01/17/17 11/18/18 Denise Woodson APRN PROPERTY DISPOSAL OFFICER [address] [place] [address] PCP - General Family Practice 09/21/20 Clara Cornell MD 8675 [place] [address] Assigned PCP 01/17/17 07/16/20 Denise Woodson APRN PROPERTY DISPOSAL OFFICER [address] [place] [address] Assigned PCP 07/17/20 Usha Simon APRN PROPERTY DISPOSAL OFFICER [address] 726595 Nurse Practitioner Neurological Surgery 01/24/24 Dangelo Salinas MD [address] [place] [address] Neurology 01/27/24 Usha Simon APRN PROPERTY DISPOSAL OFFICER [address] 418435 Assigned Neuroscience Provider 02/06/24 03/07/24 Anastasia Stearns, RN Lead Gravure Press Operator 02/06/24 Germaine Aleman, W Community Health Worker Primary Care - CC 02/18/24 Robin Zepeda MD [address] 765395 Assigned Neuroscience Provider 03/08/24 05/07/24 Lisa Zambrano MD [address] [place] [address] Assigned Heart and Vascular Provider 05/08/24 07/07/24 Raul Hoyos MD 909 [facility] [place] [address] Assigned Neuroscience Provider 05/08/24 07/07/24 Joya Lira [facility] [address] [address] Pharmacist Pharmacist 05/25/24 Joya Lira [facility] [address] [place] [address] Assigned MTM Pharmacist 06/08/24 Fabi Coates MD [address] [place] [address] 75 [place] [address] Genetics, Clinical 06/18/24 Robin Zepeda MD [address] [place], [place] [address] [address] Assigned Neuroscience Provider 07/08/24 08/07/24 Danna Cardenas PA-C 6405 [place] [address] Assigned Heart and Vascular Provider 07/08/24 Felicita Desai, RN Lead Gravure Press Operator 07/14/24 07/28/24 Arthur Salas [facility] [address] [address] Assigned Behavioral Health Provider 08/08/24 Randy Maradiaga DO [address] [place] [address] 197735 Assigned Neuroscience Provider 08/08/24 Tete Wang MD [address] [place] [address] Genetics, Clinical 10/30/24 documented as of this encounter
--- OUTSIDE RECORDS SUMMARY | 2024-11-05 13:08 | XMS_ITS | Encounter Summary ---
Author Organization [facility] Address [address] [place] [address] Care Team Providers Care Commodity Director Name Role Phone Yung Madrigal MD Unavailable Unavailable Winston Villatoro OD Unavailable [phone] Serum, Clara Garland MD Primary Care Provider Serum, Clara Garland MD Unavailable [phone] Denise Woodson APRN BRAKE REPAIRER Unavailable [phone] Denise Woodson EVIDENCE SPECIALIST BRAKE REPAIRER Primary Care Provider Usha Simon EVIDENCE SPECIALIST BRAKE REPAIRER Unavailable Dangelo Salinas MD Unavailable Usha Simon EVIDENCE SPECIALIST BRAKE REPAIRER Unavailable Anastasia Stearns RN Unavailable [phone] Germaine Aleman CHW Unavailable [phone] Robin Zepeda MD Unavailable Lisa Zambrano MD Unavailable Raul Hoyos MD Unavailable Joya Lira [facility] Unavailable [phone] Joya Lira [facility] Unavailable Fabi Coates MD Unavailable [phone] Robin Catalan MD Unavailable [phone] Danna Cardenas PA-C Unavailable +[phone] Felicita Desai RN Unavailable Unavailab Arthur Rios [facility] Unavailable [phone] AshwiniRandy Yobany MARTIN Unavailable + Tete Wang MD Unavailable [phone] Encounter Details Date Type Department Care Team (Late st Contact Info) Description 06/16/2019 MyC Medical Advice [facility] [address] [facility] [address] [place] [address] Serum, Clara Garland MD [address] [place] [address] Social History Tobacco Use Types Packs/Day Years Used Date Smoking Tobacco: Never Smokeless Tobacco: Never Alcohol Use Standard Drinks/Week Comments Yes 0 (1 standard drink = 0.6 oz pur e alcohol) minimal PHQ-2 Answer Date Recorded PHQ-2 Score 0 09/23/2018 Comments No Sex and Gender Information Value Date Recorded Sex Assigned at Not on file Legal Sex Female 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 Gender Identity Not on file Sexual Orientation Not on file 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 [place] [address] Lisa Zambrano MD 6405 [facility] [address] [place], [place] 254365 12/03/2024 7:00 AM CDT Virtual Visit [facility] Neurology [address] 3rd [place] [phone] Randy Maradiaga [address] [phone] 12/09/2024 12:45 PM CDT Office Visit [facility] Specialty Clinic [address] [place] [phone] Tete Wang MD [address] [place] [address] [phone] 12/09/2024 1:15 PM CDT Office Visit [facility] [address] [place] [address] [phone] Tete Wang MD [address] [place] [address] 584264 12/15/2024 3:00 PM CDT Virtual Visit [facility] [address] [place] [address] Denise Woodson APRN [facility] [address] [place], [place] [phone] 01/19/2025 PRE VISIT [facility] for [facility] Health [address] [phone] Any Joiner MD [address] [place] [address] [phone] *-*INCOMING RECORDS*-* 01/19/2025 3:00 PM CDT Orders Only [facility] Pulmonary Function Testing [address]rd [place] [phone] 01/19/2025 4:00 PM CDT Office Visit [facility] [address] [phone] Any Joiner MD 420 [facility] 276 [place], [place] 350975 06/01/2025 11:15 AM CDT Appointment [facility] Imaging [address] [place] [phone] Robin Zepeda MD [address] [place] [address] 935715 06/04/2025 11:00 AM CDT Office Visit [facility] Neurosurgery Clinic [address] [phone] Robin Zepeda MD [address] [place] [address] 597395 Usha Simon APRN [address] 464465 documented as of this encounter Visit Diagnoses Not on filedocumented in this encounter Additional Health Concerns Infection Onset Date Last Indicated Resolved Time Rule Out COVID-19 09/13/2024 09/13/2024 09/13/2024 12:31 PM HONING MACHINE SET UP OPERATOR Assessment Noted Time PHQ-9 Depression Total Score: 0 06/15/20 19 7:09 PM CDT documented as of this encounter Care Teams Commodity Director Relationship Specialty Start Date End Date Yung Madrigal MD RETIRED PCP - Orthopaedics Orthopedics 08/26/12 01/20/24 Winston Villatoro OD [facility] [place] [address] [place] [address] PCP - Ophthalmology Ophthalmology 02/11/13 Clara Cornell MD [facility] [place] [address] [place] [address] PCP - General Internal Medicine 02/07/17 09/20/20 Denise Woodson APRN BRAKE REPAIRER [address] [place] [address] PCP - General Family Practice 09/21/20 Clara Cornell MD [address] [place] [address] Assigned PCP 01/17/17 07/16/20 Denise Woodson APRN BRAKE REPAIRER [address] [place] [address] Assigned PCP 07/17/20 Usha Simon APRN BRAKE REPAIRER [address] [place] [address] 340285 Nurse Practitioner Neurological Surgery 01/24/24 Dangelo Salinas MD [address] [phone] Neurology 01/27/24 Usha Simon APRN BRAKE REPAIRER [address] 657195 Assigned Neuroscience Provider 02/06/24 03/07/24 Anastasia Stearns, RN Lead Senior Visual Designer 02/06/24 Germaine Aleman, W Community Health Worker Primary Care - CC 02/18/24 Robin Zepeda MD [address] [place] [address] Assigned Neuroscience Provider 03/08/24 05/07/24 Lisa Zambrano MD 6405 [facility] [address] [place] [address] Assigned Heart and Vascular Provider 05/08/24 07/07/24 Raul Hoyos MD [address] [place] [address] Assigned Neuroscience Provider 05/08/24 07/07/24 Joya Lira [place] [address] [place] [address] Pharmacist Pharmacist 05/25/24 Joya Lira [facility] [address] [place] [address] Assigned MTM Pharmacist 06/08/24 Fabi Coates MD [address] [place] [address] 75 [place] [address] Genetics, Clinical 06/18/24 Robin Zepeda MD [address] [place] [address], [place] [address] Assigned Neuroscience Provider 07/08/24 08/07/24 Danna Cardenas PA-C 6405 [place] [address] Assigned Heart and Vascular Provider 07/08/24 Felicita Desai, RN Lead Senior Visual Designer 07/14/24 07/28/24 Arthur Salas, [facility] [address] [place] [address] Assigned Behavioral Health Provider 08/08/24 Randy Maradiaga DO 909 [place] [address] Assigned Neuroscience Provider 08/08/24 Tete Wang MD 2450 [place], [place] 718724 Genetics, Clinical 10/30/24 documented as of this encounter
--- OUTSIDE RECORDS SUMMARY | 2024-11-05 13:08 | XMS_ITS | Clinical Summary ---
Author Organization [facility] Address [address] [place] [address] Care Team Providers Care Commercial Counsel Name Role Phone Winston Villatoro OD Unavailable [phone] Denise Woodson APRN SERVICES HOST Unavailable [phone] Denise Woodson APRN [facility] Primary Care Provider Usha Simon APRN [facility] Unavailable + [phone] Dangelo Salinas MD Unavailable Anastasia Stearns RN Unavailable Germaine Aleman [facility] Unavailable Joya Lira [facility] Unavailable Joya Lira [facility] Unavailable [phone] Fabi Coates MD Unavailable [phone] Danna CardenasC Unavailable [phone] SinyiArthur garcia [employer] Unavailable [phone] Randy Maradiaga DO Unavailable + Tete Wang MD Unavailable [phone] Allergies Active Allergy Reactions Criticality Noted Date Comments Acetaminophen-Codeine Nausea and Vomiting,Other (See Comments) 01/10/2022 Bupropion GI Disturbance,Other (See Comments) Low 01/19/2011 Diarrhea and stomach ache Codeine GI Disturbance High 09/23/2022 Other Reaction(s): epigastric pain Doxycycline Rash Low 09/28/2024 Erythromycin GI Disturbance Low 12/27/2005 Mold Dizziness,GI Disturbance 08/22/2012 Molds & Smuts Dizziness,Nausea 08/22/2012 Morphine GI Disturbance 05/15/2024 Pollen Extract Other (See Comments),Unknown 08/22/2012 Medications albuterol (PROAIR HFA/PROVENTIL HFA/VENTOLIN HFA) 108 (90 Base) MCG/ACT inhalerIndicatio ns:Moderate persistent asthma without complication Inhale 2 puffs into the lungs every 4 hours as needed for shortness of breath / dyspnea or wheezing 1 Inhaler 3 07/13/20 Active cetirizine (ZYRTEC) 10 MG tablet Take 10 mg by mouth at bedtime. Active psyllium (METAMUCIL) 28.3 % packet Take 1 packet by mouth daily Active senna-docusate (SENOKOT-S/PERIC OLACE) 8.6-50 MG tabletIndication s:Other constipation Take 2 tablets by mouth 2 times daily as needed for constipation 01/22/20 Active Additional Information Patient taking differently: 1 tabletOralDAILY, Reported on 10/20/2024 methyl salicylate-menth ol (ICY HOT) ointmentIndicati ons:Fibromyalgia ,Pain of right upper extremity Apply topically every 6 hours as needed (pain) 01/22/20 Active acetaminophen (TYLENOL) 500 MG tabletIndication s:Fibromyalgia,P ain of right upper extremity Take 1-2 tablets (500-1,000 mg) by mouth 3 times daily as needed for mild pain or headaches 01/24/20 24 Active MAGNESIUM PO Take 1 tablet by mouth at bedtime. Active aspirin 81 MG EC tabletIndication s:Cerebrovascula r accident (CVA), unspecified mechanism (H) Take 2 tablets (162 mg) by mouth daily. 05/19/20 24 Active Additional Information Patient taking differently: 3 tabletOral DAILY, Reported on 10/20/2024 oxyCODONE (ROXICODONE) 5 MG tabletIndication s:Cerebrovascula r accident (CVA), unspecified mechanism (H) Take 0.5 tablets (2.5 mg) by mouth every 4 hours as needed for moderate to severe pain. 10 tablet 05/19/20 24 Active Lidocaine (LIDOCARE) 4 % PatchIndications :Pain of right upper extremity,Fibrom yalgia Place 1 patch onto the skin daily as needed. To prevent lidocaine toxicity, patient should be patch free for 12 hrs daily. 05/19/20 24 Active traZODone (DESYREL) 100 MG tablet Take 100 mg by mouth at bedtime. 05/29/20 24 Active fluticasone-miki nterol (BREO ELLIPTA) 200-25 MCG/ACT inhalerIndicatio ns:Moderate persistent asthma without complication Inhale 1 puff into the lungs daily. 3 each 1 06/08/20 24 Active levETIRAcetam (KEPPRA) 750 MG tabletIndication s:History of seizure Take 1/2 of 750 mg tab BID 120 tablet 2 07/30/20 24 Active LORazepam (ATIVAN) 1 MG tabletIndication s:History of seizure Take 1/2-1 tablet daily as needed for onset of dizziness. 10 tablet 08/04/20 24 Active albuterol (PROAIR HFA/PROVENTIL HFA/VENTOLIN HFA) 108 (90 Base) MCG/ACT inhaler Inhale 1-2 puffs into the lungs every 6 hours as needed for shortness of breath, wheezing or cough. 18 g 09/13/20 24 Active azithromycin (ZITHROMAX) 250 MG tablet Take 250 mg by mouth daily. 09/20/19 25 Active citalopram (CELEXA) 10 MG tabletIndication s:Anxiety Take 0.5 tablets (5 mg) by mouth daily. 90 tablet 10/20/19 25 Active citalopram (CELEXA) 10 MG tabletIndication s:Anxiety Take 1 tablet (10 mg) by mouth daily. 90 tablet 09/28/19 25 025 Discontin ued(Reord er (No AVS)) Active Problems Problem Noted Date [...] Encounters Date Type Department Care Team Description 10/30/2024 Telephone [facility] [address],[place] [address] Unknown, Provider Appointment (Genetics reschedule) 10/21/2024 MyC Medical Advice [facility] [address] [address] Randy Maradiaga DO 10/20/2024 2:30 PM REGULATORY ADMINISTRATOR Virtual Visit [facility] [address] [place] [address] Denise Woodson APRN CNP History of stroke (Primary Dx); Anxiety 10/20/2024 Telephone [facility] [address] [address] Randy Maradiaga, DO 10/14/2024 [facility] [address] [place] [address] Denise Woodson APRN SERVICES HOST Forms (Return to Work) 10/14/2024 [facility] [address] [place] [phone] Denise Woodson APRN SERVICES HOST 10/14/2024 [facility] [address] [place] [phone] Janeen Badillo 10/09/2024 1:20 PM REGULATORY ADMINISTRATOR Virtual Visit [facility] [address] [phone] Danna Cardenas PA-C Chest pain, unspecified type; Tachycardia 10/05/2024 Telephone [facility] [address] [address] Randy Maradiaga, DO 10/05/2024 MyC Medical Advice [facility] [address] [phone] Maria Eugenia [facility] 10/05/2024 MyC Medical Advice [facility] Care Coordination [facility] [address] [place] [phone] Germaine Aleman, Dulce 09/30/2024 Orders Only [facility] [address] [address] Any Joiner MD Bronchopulmonary dysplasia (H) (Primary Dx) 09/30/2024 Telephone [facility] [address] [address] None 09/29/2024 9:00 AM REGULATORY ADMINISTRATOR Virtual Visit [facility] [address] [phone] Randy Maradiaga, Seizure-like activity (H) (Primary Dx); History of seizure; Cerebrovascular accident (CVA), unspecified mechanism (H) 09/28/2024 12:00 PM REGULATORY ADMINISTRATOR [facility] [address] [place] [phone] Denise Woodson APRN CNP Chronic obstructive pulmonary disease without exacerbation (H) (Primary Dx); BPD (bronchopulmonary dysplasia) (H); Anxiety 09/27/2024 Travel 09/24/2024 Travel 09/22/2024 MyC Medical Advice [facility] [address] [phone] Danna Cardenas PA-C 09/18/2024 1:00 PM REGULATORY ADMINISTRATOR Office Visit [facility] [address] [place] [phone] Denise Woodson APRN CNP Chronic obstructive pulmonary disease without exacerbation (H) (Primary Dx); Acute cough; BPD (bronchopulmonary dysplasia) (H) 09/18/2024 Telephone [facility] [address] [place] [phone] Denise Woodson APRN CNP Erroneous encounter-disregard 09/18/2024 Travel 09/16/2024 Travel 09/14/2024 MyC Medical Advice [facility] [address] [place] [phone] Denise Woodson APRN CNP 09/13/2024 10:54 AM REGULATORY ADMINISTRATOR - 09/13/2024 4:42 PM REGULATORY ADMINISTRATOR Emergency [facility] Emergency Dept [address] [place] [phone] Sameer Castillo DO COPD with acute exacerbation (H); Upper respiratory tract infection, unspecified type Discharge Disposition: Home or Self Care 09/13/2024 Travel 09/11/2024 8:00 AM REGULATORY ADMINISTRATOR Ancillary Procedure [facility] [address] [facility] [address] [place] [phone] Randy Maradiaga DO Seizure-like activity (H); History of seizure 09/11/2024 Travel 2024 Travel 09/04/2024 11:00 AM REGULATORY ADMINISTRATOR Office Visit [facility] [address] [place] [phone] Denise Woodson APRN SERVICES HOST Anxiety (Primary Dx); History of stroke 09/04/2024 MyC Medical Advice [facility] [address] [place] [phone] Qing Copeland 09/04/2024 Travel 09/03/2024 Travel 09/02/2024 Refill [facility] [address] [place] [phone] Denise Woodson APRN SERVICES HOST Medication Refill 08/17/2024 12:30 PM REGULATORY ADMINISTRATOR Office Visit [facility] [address] [phone] Robin Zepeda MD Waldron, Eric John, PhD LP 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); Cerebrovascular dural AV fistula; Cerebral infarction, unspecified mechanism (H) 08/17/2024 Abstract [facility] [address] [phone] Tulio Ogden, PhD LP 08/17/2024 Travel 08/14/2024 Travel 08/14/2024 MyC Medical Advice [facility] [address] [phone] Randy Maradiaga, 08/11/2024 MyC Medical Advice [facility] [address] [place] [address] Arthur Salas LICSW 08/10/2024 3:00 PM REGULATORY ADMINISTRATOR Virtual Visit [facility] [place] [address] [place] [phone] Arthur Salas LICSW MONAE (generalized anxiety disorder) (Primary Dx); MDD (major depressive disorder), recurrent episode, moderate (H) 08/10/2024 12:30 PM REGULATORY ADMINISTRATOR Virtual Visit [facility] [address] 3[address] [place] [phone] Robin Zepeda MD 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 [address] [facility] [address] [place] [phone] Danna Cardenas PA-C Chest pain, unspecified type Discharge Disposition: Home or Self Care 08/07/2024 Travel 08/06/2024 MyC Medical Advice [facility] [address] [place] [phone] Denise Woodson APRN SERVICES HOST from Last 3 Months Immunizations Name Administration Dates Next Due COVID-19 Vaccine ([employer]) 11/20/2020 Flu, Unspecified 07/11/2017,07/02/2014 HepB 03/03/2012,11/07/2011,10/04/2011 Hepatitis [...] How often do you attend mormonism or yarsani serv ices? 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 Not on file Not on file Not on file Not on file Not on file Not on file Not on file Last Filed Vital Signs Vital Sign Reading Time Taken Comments Blood Pressure 138/88 09/18/2024 12:51 PM REGULATORY ADMINISTRATOR Pulse 78 09/18/2024 12:51 PM REGULATORY ADMINISTRATOR Temperature 36.8 C (98.3 F) 09/18/2024 12:51 PM REGULATORY ADMINISTRATOR Respiratory Rate 12 09/18/2024 12:51 PM REGULATORY ADMINISTRATOR Oxygen Saturation 98% 09/18/2024 12:51 PM REGULATORY ADMINISTRATOR Inhaled Oxygen Concentration - - Weight 95.3 kg (210 lb) 09/29/2024 8:47 AM REGULATORY ADMINISTRATOR Height 174 cm (5' 8.5) 09/29/2024 8:47 AM REGULATORY ADMINISTRATOR Body Mass Index 31.47 09/29/2024 8:47 AM REGULATORY ADMINISTRATOR Plan of Treatment Upcoming Encounters Date Type Department Care Team (Late st Contact Info) Description 11/06/2024 12:00 PM REGULATORY ADMINISTRATOR Virtual Visit [facility] [address] [place] [address] Denise Woodson APRN SERVICES HOST [address] [place] [address] 12/01/2024 4:00 PM CDT Virtual Visit [facility] [address] [place] [phone] Lisa Zambrano MD [address] [place] [id number] 12/03/2024 7:00 AM CDT Virtual Visit [facility] [address] [phone] Randy Maradiaga, [address] [phone] 12/09/2024 12:45 PM CDT Office Visit [facility] [address] [place] [phone] Tete Wang MD [address] [place] [phone] 12/09/2024 1:15 PM CDT Office Visit [facility] [address] [place] [phone] Tete Wang MD [address] [place] [phone] 12/15/2024 3:00 PM CDT Virtual Visit [facility] [address] [place] [phone] Denise Woodson APRN [facility] [address] [place] [address] [phone] 01/19/2025 PRE VISIT [facility] [address] [phone] Any Joiner MD [address] [place] [address] *-*INCOMING RECORDS*-* 01/19/2025 3:00 PM CDT Orders Only [facility] Testing [address] [phone] 01/19/2025 4:00 PM CDT Office Visit [facility] [place] [address] [place] [phone] Any Joiner MD [address] [facility] 276 [place], [place] [phone] 06/01/2025 11:[address] [facility] [address] [place] [phone] Robin Zepeda MD [address] [place] [address] [phone] 06/04/2025 11:00 AM CDT Office Visit [facility] [address] 3rd [place] [phone] Robin Zepeda MD [address] [place] [address] [phone] Usha Simon APRN [address] [address] Health Maintenance Due Date Last Done Comments ADVANCE CARE PLANNING [address] COLONOGRAPHY 1976 FIT 1976 FLEX SIG 1976 SPIROMETRY 1976 COLONOSCOPY 1986 Pneumococcal Vaccine: Pediatrics (0 to 5 Years) and At-Risk Patients (6 to 49 Years) (2 of 2 - PCV) 03/16/2005 03/16/2004 YEARLY PREVENTIVE VISIT 01/11/2024 01/11/20 23, 07/27/2021, 07/27/2020, Additional history exists COVID-19 Vaccine ( - season) 2024 07/07/2021, 11/20/2020 INFLUENZA VACCINE (#1) 2024 2, 06/23/2021, 07/27/2020, Additional history exists Medicare Annual MTM Pharmacist Visit (once per calendar year) 2024 05/25/2024 PHQ-9 03/18/2025 09/18/2024, 07/17, 07/16/2024, Additional history exists MAMMO SCREENING 07/30/2025 07/30/2023, 07/17, 04/25/2022, Additional history exists ANNUAL REVIEW OF HM ORDERS 09/04/202509/04, 02/06/2024, 01/04/2021 COLORECTAL CANCER SCREENING 10/28/2025 sDNA (Cologuard) 10/28/2025 10/28/2022 ZOSTER IMMUNIZATION (1 of 2) 2026 GLUCOSE 09/13/2027 09/13/2024, 06/17, 07/13/2024, Additional history [...] age to complete this topic PAP Discontinued Procedures Procedure Name Priority Date/Time Associated Diagnosis Comments CBC WITH PLATELETS & DIFFERENTIAL Routine 09/18/2024 1:23 PM REGULATORY ADMINISTRATOR Acute cough CBC WITH PLATELETS AND DIFFERENTIAL Routine 09/18/2024 1:23 PM REGULATORY ADMINISTRATOR Acute cough CT VASCULAR - HIM SCAN 4 12:00 AM REGULATORY ADMINISTRATOR XRAY IMAGING - HIM SCAN 09/15/20 24 12:[address] CHEST PULMONARY EMBOLISM W CONTRAST STAT 09/13/2024 12:59 PM REGULATORY ADMINISTRATOR INFLUENZA A/B, RSV AND SARS-COV2 PCR STAT 09/13/2024 11:49 AM REGULATORY ADMINISTRATOR XR CHEST 2 VIEWS STAT 09/13/2024 11:25 AM REGULATORY ADMINISTRATOR CBC WITH PLATELETS & DIFFERENTIAL STAT 09/13/2024 11:06 AM REGULATORY ADMINISTRATOR D DIMER QUANTITATIVE STAT 09/13/2024 11:06 AM REGULATORY ADMINISTRATOR TROPONIN T, HIGH SENSITIVITY Add-On 09/13/2024 11:06 AM REGULATORY ADMINISTRATOR EXTRA BLUE TOP TUBE STAT 09/13/2024 11:06 AM REGULATORY ADMINISTRATOR CBC WITH PLATELETS AND DIFFERENTIAL STAT 09/13/2024 11:06 AM REGULATORY ADMINISTRATOR EXTRA TUBE STAT 09/13/2024 11:06 AM REGULATORY ADMINISTRATOR COMPREHENSIVE METABOLIC PANEL STAT 09/13/2024 11:06 AM REGULATORY ADMINISTRATOR EKG 12-LEAD, TRACING ONLY STAT 09/13/2024 10:53 AM REGULATORY ADMINISTRATOR EEG VIDEO 3 HOUR CONTINUOUS MONITORING Routine 09/11/2024 11:00 AM REGULATORY ADMINISTRATOR Seizure-like activity (H) History of seizure XRAY IMAGING - HIM SCAN 09/08/20 12:00 AM REGULATORY ADMINISTRATOR ND PSYCL/NRPSYCL TST TECH 2+ TST EA ADDL 30 MIN Routine 08/19/2024 4:15 PM REGULATORY ADMINISTRATOR 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 Cerebral infarction, unspecified mechanism (H) ND PSYCL/NRPSYCL TST TECH 2+ TST 1ST 30 MIN Routine 08/19/2024 4:15 PM REGULATORY ADMINISTRATOR 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 Cerebral infarction, unspecified mechanism (H) ND NEUROPSYCHOLOGICAL TST EVAL PHYS/QHP EA ADDL HR Routine 08/19/2024 4:15 PM REGULATORY ADMINISTRATOR 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 Cerebral infarction, unspecified mechanism (H) ND NEUROPSYCHOLOGICAL TST EVAL PHYS/QHP 1ST HOUR Routine 08/19/2024 4:15 PM REGULATORY ADMINISTRATOR 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 Cerebral infarction, unspecified mechanism (H) CTA ANGIOGRAM CORONARY ARTERY Routine 08/07/2024 4:31 PM REGULATORY ADMINISTRATOR Chest pain, unspecified type RADIOLOGIST CONSULT FOR CARDIOLOGY Routine 08/07/2024 4:31 PM REGULATORY ADMINISTRATOR Chest pain, unspecified type HIV ANTIGEN ANTIBODY COMBO Routine 07/22/2024 11:17 AM REGULATORY ADMINISTRATOR Screening for HIV (human immunodeficiency virus) HEPATITIS C SCREEN REFLEX TO HCV RNA QUANT AND GENOTYPE Routine 07/22/2024 11:17 AM REGULATORY ADMINISTRATOR Need for hepatitis C screening test LIPID REFLEX TO DIRECT LDL PANEL STAT 07/13/2024 12:40 PM CDT MA SCREENING BILATERAL W/ MAT Routine 04/25/2022 5:03 PM CDT Visit for screening mammogram from Last 3 Months or Most Recently Relevant to Health Maintenance Results * (ABNORMAL) CBC with platelets and differential (09/18/2024 1:23 PM REGULATORY ADMINISTRATOR) Only the most recent of2 resultswithin the time period is included. WBC Count 13.5(H) 4.0 - 11.0 10e3/uL 09/18/2024 1:38 PM REGULATORY ADMINISTRATOR RM LABORATORY RBC Count 4.81 3.80 - 5.20 10e6/uL 09/18/2024 1:38 PM REGULATORY ADMINISTRATOR RM LABORATORY Hemoglobin 14.6 11.7 - 15.7 g/dL 09/18/2024 1:38 PM REGULATORY ADMINISTRATOR RM LABORATORY Hematocrit 43.6 35.0 - 47.0 % 09/18/2024 1:38 PM REGULATORY ADMINISTRATOR RM LABORATORY MCV 91 78 - 100 fL 09/18/2024 1:38 PM REGULATORY ADMINISTRATOR RM LABORATORY MCH 30.4 26.5 - 33.0 pg 09/18/2024 1:38 PM REGULATORY ADMINISTRATOR RM LABORATORY MCHC 33.5 31.5 - 36.5 g/dL 09/18/2024 1:38 PM REGULATORY ADMINISTRATOR LABORATORY RDW 12.4 10.0 - 15.0 % 09/18/2024 1:38 PM REGULATORY ADMINISTRATOR LABORATORY Platelet Count 279 150 - 450 10e3/uL 09/18/2024 1:38 PM REGULATORY ADMINISTRATOR RM LABORATORY % Neutrophils 86 % 09/18/2024 1:38 PM REGULATORY ADMINISTRATOR LABORATORY % Lymphocytes 11 % 09/18/2024 1:38 PM REGULATORY ADMINISTRATOR RM LABORATORY % Monocytes 3 % 09/18/2024 1:38 PM REGULATORY ADMINISTRATOR RM LABORATORY % Eosinophils 0 % 09/18/2024 1:38 PM REGULATORY ADMINISTRATOR LABORATORY % Basophils 0 % 09/18/2024 1:38 PM REGULATORY ADMINISTRATOR LABORATORY % Immature Granulocytes 0 % 09/18/2024 1:38 PM REGULATORY ADMINISTRATOR LABORATORY Absolute Neutrophils 11.5(H) 1.6 - 8.3 10e3/uL 09/18/2024 1:38 PM REGULATORY ADMINISTRATOR LABORATORY Absolute Lymphocytes 1.4 0.8 - 5.3 10e3/uL 09/18/2024 1:38 PM REGULATORY ADMINISTRATOR LABORATORY Absolute Monocytes 0.4 0.0 - 1.3 10e3/uL 09/18/2024 1:38 PM REGULATORY ADMINISTRATOR LABORATORY Absolute Eosinophils 0.1 0.0 - 0.7 10e3/uL 09/18/2024 1:38 PM REGULATORY ADMINISTRATOR LABORATORY Absolute Basophils 0.0 0.0 - 0.2 10e3/uL 09/18/2024 1:38 PM REGULATORY ADMINISTRATOR LABORATORY Absolute Immature Granulocytes 0.1 <=0.4 10e3/uL 09/18/2024 1:38 PM REGULATORY ADMINISTRATOR LABORATORY Blood BLOOD SPECIMEN / Unknown Venipuncture / Unknown 09/18/2024 1:23 PM REGULATORY ADMINISTRATOR 09/18/2024 1:31 PM REGULATORY ADMINISTRATOR us Denise Woodson APRN SERVICES HOST LAB - BLOOD ORDERABLES Final Result LABORATORY [facility] [place] [facility] [address] [facility] Lab (no room number, 1st floor of clinic) [place] [address], [facility] * Xray Imaging - HIM Scan (09/15/2024 12:00 AM REGULATORY ADMINISTRATOR) Only the most recent of2 resultswithin the time period is included. Anatomical Region Laterality Modality Other 09/15/2024 us Provider Outside [facility] DIAGNOSTIC IMAGING ORDERABL ES Final Result * CT Vascular - HIM Scan (09/15/2024 12:00 AM REGULATORY ADMINISTRATOR) Anatomical Region Laterality Modality Computed Tomogra phy 09/15/2024 us Provider Outside [facility] CT ORDERABLES Final Result * CT Chest Pulmonary Embolism w Contrast (09/13/2024 12:59 PM REGULATORY ADMINISTRATOR) Anatomical Region Laterality Modality Chest, SUBRAD CT BODY, UMP CT CHEST Computed Tomography 09/13/2024 12:5 9 PM REGULATORY ADMINISTRATOR Impressions 09/13/2024 2:23 PM REGULATORY ADMINISTRATOR IMPRESSION: 1. No pulmonary artery embolism. 2. Mild emphysema and mild bronchiolitis with bronchial wall thickening and pulmonary air trapping. No pneumonic infiltrate or pleural effusion. Narrative 09/13/2024 2:23 PM REGULATORY ADMINISTRATOR EXAM: CT CHEST PULMONARY EMBOLISM W CONTRAST LOCATION: [facility] DATE: 09/13/2024 INDICATION: Chest pain [...] CT CHEST PULMONARY EMBOLISM W CONTRAST LOCATION: [facility] DATE: 09/13/2024 INDICATION: Chest pain [...] infiltrate or pleural effusion. Sameer Castillo DO IM CT ORDERABLES Final Result * Influenza A/B, RSV and SARS-CoV2 PCR (COVID-19) Nasopharyngeal (09/13/2024 11:49 AM REGULATORY ADMINISTRATOR) Influenza A PCR Negative Negative 09/13/2024 12:31 PM REGULATORY ADMINISTRATOR LABORATORY Influenza B PCR Negative Negative 09/13/2024 12:31 PM REGULATORY ADMINISTRATOR LABORATORY RSV PCR Negative Negative 09/13/2024 12:31 PM REGULATORY ADMINISTRATOR LABORATORY SARS CoV2 PCR Negative Negative 09/13/2024 12:31 PM REGULATORY ADMINISTRATOR LABORATORY Comment:NEGATIVE: SARS-CoV-2 (COVID-19) RNA not detected, presumed negative. Swab NASOPHARYNGEAL STRUCTURE / Unknown Non-blood Collection / Unknown 09/13/2024 11:49 AM REGULATORY ADMINISTRATOR 09/13/2024 11:52 AM REGULATORY ADMINISTRATOR Narrative LABORATORY - 09/13/2024 12:31 PM REGULATORY ADMINISTRATOR Testing was performed using the Xpert Xpress CoV2/Flu/RSV Assay on the [employer] GeneXpert Instrument. This test should be ordered [...] test was validated by the [facility]. These laboratories are certified under the Clinical Laboratory Improvement Amendments of 1988 (CLIA-88) as qualified to perfom high complexity laboratory testing. Sameer Castillo DO LAB - MICRO GENERA L ORDERABLES Final Result LABORATORY [facility] [address] floor, [address] [place] [address], [facility] [phone] * Chest XR, PA & LAT (09/13/2024 11:25 AM REGULATORY ADMINISTRATOR) Anatomical Region Laterality Modality Chest Digital Radiogra phy 09/13/2024 11:2 5 AM REGULATORY ADMINISTRATOR Impressions 09/13/2024 12:27 PM REGULATORY ADMINISTRATOR IMPRESSION: Pulmonary hyperinflation consistent with known emphysema. PFO closure device. Mild bibasilar opacities likely reflect atelectasis. Stable biapical scarring. No pleural effusion. Stable heart size. Narrative 09/13/2024 12:27 PM REGULATORY ADMINISTRATOR EXAM: XR CHEST 2 VIEWS LOCATION: [facility] DATE: 09/13/2024 INDICATION: chst pain and sob aftr aspirationj COMPARISON: CT 03/18/2024 Procedure Note Dionicio Ennis MD - 09/13/2024 EXAM: XR CHEST 2 VIEWS LOCATION: [facility] DATE: 09/13/2024 INDICATION: chst pain and sob aftr aspirationj COMPARISON: CT 03/18/2024 IMPRESSION: Pulmonary hyperinflation consistent with known emphysema. PFOclosure device. Mild bibasilar opacities likely reflect atelectasis.Stable biapical scarring. No pleural effusion. Stable heart size. Sameer Clay'Neill DO IMG DIAGNOSTIC TAYLA GING ORDERABLES Final Result * Extra Blue Top Tube (09/13/2024 11:06 AM REGULATORY ADMINISTRATOR) Hold Specimen x 09/13/2024 11:46 AM REGULATORY ADMINISTRATOR LABORATORY Blood VENOUS LINE / Unknown Venipuncture / Unknown 09/13/2024 11:06 AM REGULATORY ADMINISTRATOR 09/13/2024 11:15 AM REGULATORY ADMINISTRATOR Sameer Castillo DO LAB - BLOOD ORDERA BLES Final Result LABORATORY [facility] [address] 1st floor, [address] [place] [address], [facility] [phone] * Troponin T, High Sensitivity (09/13/2024 11:06 AM REGULATORY ADMINISTRATOR) [facility] Troponin T, High Sensitivity <6 <=14 ng/L 09/13/2024 11:47 AM REGULATORY ADMINISTRATOR LABORATORY Comment: Either a High Sensitivity Troponin [...] Unknown Venipuncture / Unknown 09/13/2024 11:06 AM REGULATORY ADMINISTRATOR 09/13/2024 11:15 AM REGULATORY ADMINISTRATOR Sameer Castillo LAB - BLOOD ORDERA BLES Final Result Performing Organization Address City/[facility]/ZIP Co de Phone Number LABORATORY [facility] [address] 1[address] floor, [address] [place] [address], [facility] [phone] * (ABNORMAL) D dimer quantitative (09/13/2024 11:06 AM REGULATORY ADMINISTRATOR) [facility] D-Dimer Quantitative 0.82(H) 0.00 - 0.50 ug/mL FEU 09/13/2024 11:54 AM REGULATORY ADMINISTRATOR LABORATORY Blood VENOUS LINE / Unknown Venipuncture / Unknown 09/13/2024 11:06 AM REGULATORY ADMINISTRATOR 09/13/2024 11:15 AM REGULATORY ADMINISTRATOR Narrative LABORATORY - 09/13/2024 11:54 AM REGULATORY ADMINISTRATOR This D-dimer assay is intended for use in conjunction with a clinical pretest probability assessment model to exclude pulmonary embolism (PE) and deep venous thrombosis (DVT) in outpatients suspected of PE or DVT. The cut-off value is 0.50 ug/mL FEU. Sameer Castillo LAB - BLOOD ORDERA BLES Final Result Performing Organization Address City/[facility]/ZIP Co de Phone Number LABORATORY [facility] [address] 1st floor, [address] [place] [address], [place] [phone] * (ABNORMAL) Comprehensive metabolic panel (09/13/2024 11:06 AM REGULATORY ADMINISTRATOR) [facility] Sodium 142 135 - 145 mmol/L 09/13/2024 11:47 AM [facility] LABORATORY Potassium 4.6 3.4 - 5.3 mmol/L 09/13/2024 11:47 AM [facility] LABORATORY Carbon Dioxide (CO2) 29 22 - 29 mmol/L 09/13/2024 11:47 AM [facility]OR[facility] Anion Gap 10 7 - 15 mmol/L 09/13/2024 11:47 AM [facility] Urea Nitrogen 14.5 6.0 - 20.0 mg/dL 09/13/2024 11:47 AM [facility] Creatinine 0.82 0.51 - 0.95 mg/dL 09/13/2024 11:47 AM [facility] LABOR[facility] GFR Estimate 88 >60 mL/min/1.7 3m2 09/13/2024 11:47 AM [facility] Comment:eGFR calculated [facility] 2020 CKD-EPI equation. Calcium 10.1 8.8 - 10.4 mg/dL 09/13/2024 11:47 AM [facility] Comment:Reference intervals for this test were updated on 03/31/2024 to reflect our healthy population more accurately. There may be differences in the flagging of prior results with similar values performed with this method. Those prior results can be interpreted in the context of the updated reference intervals. Chloride 103 98 - 107 mmol/L 09/13/2024 11:47 AM [facility] Glucose 105(H) 70 - 99 mg/dL 09/13/2024 11:47 AM [facility] Alkaline Phosphatase 117 40 - 150 U/L 09/13/2024 11:47 AM [facility] AST 28 0 - 45 U/L 09/13/2024 11:47 AM [facility] ALT 27 0 - 50 U/L 09/13/2024 11:47 AM [facility] Protein Total 7.9 6.4 - 8.3 g/dL 09/13/2024 11:47 AM [facility] Albumin 4.4 3.5 - 5.2 g/dL 09/13/2024 11:47 AM [facility] Bilirubin Total 0.9 <=1.2 mg/dL 09/13/2024 11:47 AM [facility] Blood VENOUS LINE / Unknown Venipuncture / Unknown 09/13/2024 11:06 AM [facility] 09/13/2024 11:15 AM [facility] Sameer Castillo DO LAB - BLOOD ORDERA BLES Final Result LABORATORY [facility] [address] 1st floor, [address] [place] [address], [facility] [phone] * EKG 12 lead (09/13/2024 10:53 AM REGULATORY ADMINISTRATOR) Systolic Blood Pressure mmHg RADIOLOGY RESULTS Diastolic Blood Pressure mmHg RADIOLOGY RESULTS Ventricular Rate 88 BPM RAD IOLOGY RESULTS Atrial Rate 88 BPM RADIOLOG Y RESULTS ND Interval 148 ms RADIOLOG Y RESULTS QRS Duration 78 ms RADIOLO GY RESULTS QT 316 ms RADIOLOGY RESULTS QTc 382 ms RADIOLOGY RESULTS P [place] 62 degrees RADIOLOGY RESULTS R AXIS 49 degrees RADIOLOGY RESULTS T [place] -12 degrees RADIOLOGY RESULTS Interpretation ECG Sinus rhythm Possible Left atrial enlargement T wave abnormality, consider inferolateral ischemia Abnormal ECG When compared with ECG of 10-May-2024 11:25, T wave inversion more evident in Inferior leads T wave inversion now evident in Anterior leads Confirmed by GENERATED REPORT, COMPUTER ([id number]), social media editor Felicita Pettit ([id number]) on 09/13/2024 12:08:04 PM RADIOLOGY RESULTS 09/13/2024 10:5 3 AM REGULATORY ADMINISTRATOR 09/13/2024 12:08 PM REGULATORY ADMINISTRATOR Tran Qureshi MD ECG ORDERABLES Edited R esult - Final RADIOLOGY RESULTS * EEG Video 2-12 hrs Continuous Monitoring (09/11/2024 11:00 AM REGULATORY ADMINISTRATOR) Narrative [facility] - 09/13/2024 10:50 PM REGULATORY ADMINISTRATOR VIDEO EEG DATE: 09/11/2024 VIDEO EEG LOG: [id number] VIDEO EEG #: 1 VIDEO EEG SOURCE [...] reviewed by Cecile Mayo MD us Randy Haywood Laronfortunato DO IMG EEG ORDERABLES Final Result [facility] * CTA Angiogram coronary artery (08/07/2024 4:31 PM REGULATORY ADMINISTRATOR) Anatomical Region Laterality Modality Cardio, SUBRAD CT BODY, UMP CT CHEST, RAD CT Computed Tomography Impressions 08/07/2024 4:43 PM REGULATORY ADMINISTRATOR IMPRESSION: 1. Normal coronary anatomy with no [...] SERGEI BYNUM MD Narrative 08/07/2024 4:43 PM REGULATORY ADMINISTRATOR Procedure: CTA ANGIOGRAM CORONARY ARTERY Examination Date: [...] Images were reconstructed and analyzed on a SmartThings workstation. Scan protocol was optimized to minimize [...] Images were reconstructed and analyzed on a SmartThings workstation. Scan protocol was optimized to minimize [...] that will follow separately. SERGEI BYNUM MD Danna Cardenas PA-C [facility] CT ORDERABLES Final Resu lt * Radiologist Consult For Cardiology (08/07/2024 4:31 PM REGULATORY ADMINISTRATOR) Anatomical Region Laterality Modality Computed Tomogra phy Impressions 08/10/2024 4:16 PM REGULATORY ADMINISTRATOR IMPRESSION: Pectus excavatum. Mosaic attenuation of the lungs suggests possible air trapping. MARLO FAULKNER MD Narrative 08/10/2024 4:16 PM REGULATORY ADMINISTRATOR RADIOLOGIST CONSULT FOR CARDIOLOGY 08/07/2024 4:31 PM HISTORY: Chest pain, unspecified type. COMPARISON: None. Procedure Note Marlo Faulkner MD - 08/10/2024 RADIOLOGIST CONSULT FOR CARDIOLOGY 08/07/2024 4:31 PM HISTORY: Chest pain, unspecified type. COMPARISON: None. IMPRESSION: Pectus excavatum. Mosaic attenuation of the lungs suggests possible air trapping. MARLO FAULKNER MD Danna Cardenas PA-C [facility] DIAGNOSTIC IMAGING ORDER NASRIN Final Result * HIV Antigen Antibody Combo (07/22/2024 11:17 AM REGULATORY ADMINISTRATOR) HIV Antigen Antibody Combo Nonreactive Nonreactive 07/23/2024 2:55 AM REGULATORY ADMINISTRATOR [facility] Comment:Negative HIV-1 p24 a ntigen [...] Unknown Venipuncture / Unknown 07/22/2024 11:17 AM REGULATORY ADMINISTRATOR 07/22/2024 11:17 AM REGULATORY ADMINISTRATOR Denise Woodson APRN [facility] LAB - BLOOD ORDERABLES Final Result Performing Organization Address City/[facility]/ZIP Co de Phone Number LABORATORY [facility] [address] [facility], [address] * Hepatitis C Screen Reflex to HCV RNA Quant and Genotype (07/22/2024 11:17 AM REGULATORY ADMINISTRATOR) Hepatitis C Antibody Nonreactive Nonreactive 07/23/2024 10:25 AM REGULATORY ADMINISTRATOR LABORATORY Comment:A nonreactive screen ing test result [...] Unknown Venipuncture / Unknown 07/22/2024 11:17 AM REGULATORY ADMINISTRATOR 07/22/2024 11:17 AM REGULATORY ADMINISTRATOR Denise Woodson APRN [facility] LAB - BLOOD ORDERABLES Final Result Performing Organization Address City/[facility] Co de Phone Number LABORATORY [facility] [address] [facility], Room [address] [place] [address] * (ABNORMAL) Lipid panel reflex to direct [...] Very High: >= 220 mg/dL us Azra Bustamante PA-C LAB - BLOOD ORDERABLES F inal Result [facility] LABORATORY [facility] [address] [facility], [address] [place] [address], [place] LABORATORY [facility] [address], Room [address] [place] [address], [place] [phone] * MA Screen Bilateral w/Mat (04/25/2022 5:03 [...] patient. 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 [address] , [address] [place] [address] [employer] * Guarantor: Alcon Zamora Account Type Relation to Patient Date of Phone Billing Address Medication Therapy Self 1975 [address] [place] [address] [employer] Advance Directives For more information, please contact: [phone] * Full Code (Latest Code Status on [...] patie nt/ legal decision maker Care Teams Commercial Counsel Relationship Specialty Start Date End Date Winston Villatoro OD [facility] [address] [place] [address] PCP - Ophthalmology Ophthalmology 02/11/13 Denise Woodson APRN SERVICES HOST [address] [place] [address] PCP - General Family Practice 09/21/20 Denise Woodson APRN SERVICES HOST [address] [place] [address] Assigned PCP 07/17/20 Usha Simon APRN SERVICES HOST [address] [facility], [place] [address] Nurse Practitioner Neurological Surgery 01/24/24 Dangelo Salinas MD [address] [place], [place] [phone] Neurology 01/27/24 Anastasia Stearns, RN Lead Gang Vibrator Operator 02/06/24 Germaine Aleman, W Community Health Worker Primary Care - CC 02/18/24 Joya Lira [facility] [address] [place] [address] Pharmacist Pharmacist 05/25/24 Joya Lira [facility] [address] [place] [address] Assigned MTM Pharmacist 06/08/24 Fabi Coates MD [address] [facility] 75 [place], [place] [phone] Genetics, Clinical 06/18/24 Danna Cardenas PA-C [address] [place], [place] [address] Assigned Heart and Vascular Provider 07/08/24 Arthur Salas LAUNDRY MACHINE MECHANIC [address] [place], [place] [phone] Assigned Behavioral Health Provider 08/08/24 Randy Maradiaga DO [address] [place], [place] [address] Assigned Neuroscience Provider 08/08/24 Tete Wang MD [address] [place], [place] [address] Genetics, Clinical 10/30/24
--- OUTSIDE RECORDS SUMMARY | 2024-11-05 13:08 | XMS_ITS | Encounter Summary ---
Author Organization [facility] Address [address] [place] [address] Care Team Providers Care Campground Attendant Name Role Phone Timmy Perez MD Unavailable Unavailable Yung Madrigal MD Unavailable Unavailable Winston Villatoro OD Unavailable [phone] Apple Sykes MD Primary Care Provider Unavailab Westley Vera MD Unavailable [phone] GeorginaAlessandra Gómez APRN GREENHOUSE STAFF Primary Car e Provider Serum, Clara Garland MD Primary Care Provider Serum, Clara Garland MD Unavailable [phone] Serum, Clara Garland MD Unavailable [phone] Denise Woodson APRN GREENHOUSE STAFF Unavailable [phone] Denise Woodson APRN GREENHOUSE STAFF Primary Care Provider Usha Simon APRN GREENHOUSE STAFF Unavailable + [phone] Dangelo Salinas MD Unavailable Usha Simon APRN GREENHOUSE STAFF Unavailable + [phone] Anastasia Stearns RN Unavailable [phone] Germaine Aleman Unavailable +[phone] Robin Zepeda MD Unavailable [phone] Lisa Zambrano MD Unavailable + [phone] Raul Hoyos MD Unavailable SorayaJoya [facility] Unavailable [phone] SorayaJoya [facility] Unavailable [phone] Fabi Coates MD Unavailable [phone] DuaneRobin MD Unavailable [phone] Danna Cardenas PA-C Unavailable +[phone] Felicita Desai RN Unavailable Unavailab gabino Arthur Salas MATTRESS RENOVATOR Unavailable +[phone] Randy Maradiaga DO Unavailable + Tete Wang MD Unavailable [phone] Encounter Details Date Type Department Care Team (Late st Contact Info) Description 05/19/2013 MyC Medical Advice [facility] [place] [facility] [address] [place] [address] Yung Madrigal MD RETIRED Social History Tobacco Use Types Packs/Day Years Used Date Smoking Tobacco: Never Smokeless Tobacco: Never Alcohol Use Standard Drinks/Week Comments Yes 0 (1 standard drink = 0.6 oz pur e alcohol) minimal Comments No Sex and Gender Information Value Date Recorded Sex Assigned at Not on file Legal Sex Female 4:05 AM FISH HATCHERY SPECIALIST Gender Identity Not on file Sexual Orientation Not on file 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 [address] [place] [address] Denise Woodson APRN [facility] [address] [place] [address] 12/01/2024 4:00 PM CDT Virtual Visit [facility] Vascular [facility] [place] [address] [place] [phone] Lisa Zambrano MD [address] [place] [address] 12/03/2024 7:00 AM CDT Virtual Visit [facility] Neurology Clinic [address] 3rd [place] [address] Randy Maradiaga, [address] [address] 12/09/2024 12:45 PM CDT Office Visit [facility] [address] [place] [address] [phone] Tete Wang MD [address] [place] [address] 12/09/2024 1:15 PM CDT Office Visit [facility] Pediatric Specialty Clinic [address] [place] [address] [phone] Tete Wang MD [address] [place] [address] [phone] 12/15/2024 3:00 PM CDT Virtual Visit [facility] [address] [place] [phone] Denise Woodson APRN [facility] [address] [place], [place] [phone] 01/19/2025 PRE VISIT [facility] [address] [phone] Any Joiner MD [address] [address] *-*INCOMING RECORDS*-* 01/19/2025 3:00 PM CDT Orders Only [facility] Pulmonary Function Testing [address] [place] [phone] 01/19/2025 4:00 PM CDT Office Visit [facility] [address] [phone] Any Joiner MD [address] [place] [address] 06/01/2025 11:15 AM CDT Appointment [facility] [address] [place] [phone] Robin Zepeda MD [address] [place] [address] 06/04/2025 11:00 AM CDT Office Visit [facility] Neurosurgery [address] [phone] Robin Zepeda MD [address] [place] [address] [phone] Usha Simon APRN [address] [phone] documented as of this encounter Visit Diagnoses Not on filedocumented in this encounter Additional Health Concerns Infection Onset Date Last Indicated Resolved Time Rule Out COVID-19 09/13/2024 09/13/2024 09/13/2024 12:31 PM FISH HATCHERY SPECIALIST documented as of this encounter Care Teams Campground Attendant Relationship Specialty Start Date End Date Timmy Perez MD PCP - Obstetrics/Gynecology 03/02/08 08/07/15 Yung Madrigal MD RETIRED PCP - Orthopaedics Orthopedics 08/26/12 01/20/24 Winston Villatoro OD [facility] [place] [address] [place] [address] PCP - Ophthalmology Ophthalmology 02/11/13 Apple Sykes MD [facility] [place] [address] [place] [address] PCP - General Family Practice 05/04/13 10/25/16 Westely Bates MD XXX RETIRED XXX [address] [place] [address] PCP - ENT Otolaryngology 05/14/13 07/28/18 [facility] GREENHOUSE STAFF [address] [facility] [place] [phone] PCP - General Nurse Practitioner 10/26/16 02/06/17 Clara Cornell MD [address] [facility] [place] [address] PCP - General Internal Medicine 02/07/17 09/20/20 Clara Cornell MD [address] [facility] [place] [place] [facility] [place] [address] PCP - Assigned PCP 01/17/17 11/18/18 Denise Woodson APRN GREENHOUSE STAFF [address] [place] [address] PCP - General Family Practice 09/21/20 Clara Cornell MD [address] [place] [address] Assigned PCP 01/17/17 07/16/20 Denise Woodson APRN GREENHOUSE STAFF [address] [facility] [place] [address] Assigned PCP 07/17/20 Usha Simon APRN GREENHOUSE STAFF [address] [phone] Nurse Practitioner Neurological Surgery 01/24/24 Dangelo Salinas MD [address] [place], [place] [phone] Neurology 01/27/24 Usha Simon APRN GREENHOUSE STAFF [address] [phone] Assigned Neuroscience Provider 02/06/24 03/07/24 Anastasia Stearns, RN Lead Justice Professor 02/06/24 Germaine Aleman, W Community Health Worker Primary Care - CC 02/18/24 Robin Zepeda MD [address] 988425 Assigned Neuroscience Provider 03/08/24 05/07/24 Lisa Zambrano MD [address] [place] [id number] Assigned Heart and Vascular Provider 05/08/24 07/07/24 Raul Hoyos MD [address] [facility] [place], [place] [address] Assigned Neuroscience Provider 05/08/24 07/07/24 Joya Lira [facility] [address] [place] [address] Pharmacist Pharmacist 05/25/24 Joya Lira [facility] [address] [place] [address] Assigned MTM Pharmacist 06/08/24 Fabi Coates MD [address] [place] [address] 75 [place], [place] [address] Genetics, Clinical 06/18/24 Robin Zepeda MD [address] [place], [place] [address] [place], [place] [address] Assigned Neuroscience Provider 07/08/24 08/07/24 Danna Cardenas PA-C [address] [place] [address] Assigned Heart and Vascular Provider 07/08/24 Felicita Desai RN Lead Justice Professor 07/14/24 07/28/24 Arthur Salas [facility] [address] [address] Assigned Behavioral Health Provider 08/08/24 Randy Maradiaga DO [address] [place] [address] Assigned Neuroscience Provider 08/08/24 Tete Wang MD [address] [place] [address] Genetics, Clinical 10/30/24 documented as of this encounter
--- OUTSIDE RECORDS SUMMARY | 2024-11-05 13:08 | XMS_ITS | Encounter Summary ---
Author Organization [facility] [place] Address [address] [place] [address] Care Team Providers Care Systems Integration Engineer Name Role Phone Yung Madrigal MD Unavailable Unavailable Winston Villatoro OD Unavailable [phone] Denise Woodson APRN DRYWALL METAL STUD WORKER Unavailable [phone] Denise Woodson APRN DRYWALL METAL STUD WORKER Primary Care Provider Usha Simon APRN DRYWALL METAL STUD WORKER Unavailable [phone] Dangelo Salinas MD Unavailable Usha Simon APRN DRYWALL METAL STUD WORKER Unavailable Anastasia Stearns RN Unavailable Germaine Aleman CHW Unavailable [phone] Robin Zepeda MD Unavailable Lisa Zambrano MD Unavailable Raul Hoyos MD Unavailable Joya Lira [facility] Unavailable Joya Lira Joleen Unavailable Fabi Coates MD Unavailable [phone] Robin Zepeda MD Unavailable [phone] Danna Cardenas PA-C Unavailable Felicita Desai RN Unavailable Unavailab Arthur Rios Unavailable [phone] Randy Maradiaga DO Unavailable + Tete Wang MD Unavailable [phone] Encounter Details Date Type Department Care Team (Late st Contact Info) Description 06/13/2021 [facility]C [facility] [address] [place] [address] Denise Woodson, [facility] [address] [place] [address] Insomnia, unspecified type Social History [...] on file Legal Sex Female 4:05 AM PROOF TECHNICIAN HELPER Gender Identity Not on file Sexual Orientation Not on file 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 They stated they do not have a refill on file. Prescription approved per [facility] protocol. Mary Caraballo RN on 06/13/2021 at 5:18 PM documented in this encounter Plan of Treatment Upcoming Encounters Date Type Department Care Team (Late st Contact Info) Description 11/06/2024 12:00 PM PROOF TECHNICIAN HELPER [facility] [address] [place] [phone] Denise Woodson APRN DRYWALL METAL STUD WORKER [address] [place], [place] [phone] 12/01/2024 4:00 PM CDT Virtual Visit [facility] [place] [address] [place] [phone] Lisa Zambrano MD [address] [place] [address] 12/03/2024 7:00 AM CDT Virtual Visit [facility] Neurology Clinic [address] [phone] Randy Maradiaga, [address] 740635 12/09/2024 12:45 PM CDT Office Visit [facility] [address] [place] [address] [phone] Tete Wang MD [address] [place] [address] 12/09/2024 1:15 PM CDT Office Visit [facility] Pediatric Specialty Clinic [address] [place] [address] [phone] Tete Wang MD [address] [place] [address] 677474 12/15/2024 3:00 PM CDT Virtual Visit [facility] [address] [place] [phone] Denise Woodson APRN DRYWALL METAL STUD WORKER [address] [place] [address] 01/19/2025 PRE VISIT [facility] Lung Science [address] [phone] Any Joiner MD [address] [address] *-*INCOMING RECORDS*-* 01/19/2025 3:00 PM CDT Orders Only [facility] Pulmonary Function Testing [address] 3rd [place] [address] 01/19/2025 4:00 PM CDT Office Visit [facility] Lung Science [address] [phone] Any Joiner MD [address] [place] [address] 550695 06/01/2025 11:15 AM CDT Appointment [facility] Imaging [address] [place] [phone] Robin Zepeda MD [address] [place] [address] 440055 06/04/2025 11:00 AM CDT Office Visit [facility] Neurosurgery [address] [phone] Robin Zepeda MD [address] [place] [address] 782785 Usha Simon APRN DRYWALL METAL STUD WORKER [address] [place] [address] 354715 documented as of this encounter Visit Diagnoses Diagnosis Insomnia, unspecified type documented in this encounter Additional Health Concerns Infection Onset Date Last Indicated Resolved Time Rule Out COVID-19 09/13/2024 09/13/2024 09/13/2024 12:31 PM PROOF TECHNICIAN HELPER Assessment Noted Time PHQ-9 Depression Total Score: 0 01/05/20 21 9:31 AM CDT documented as of this encounter Care Teams Systems Integration Engineer Relationship Specialty Start Date End Date Yung Madrigal MD RETIRED PCP - Orthopaedics Orthopedics 08/26/12 01/20/24 Winston Villatoro OD [facility] [place] [address] [facility] [address] [place] [address] PCP - Ophthalmology Ophthalmology 02/11/13 Deinse Woodson APRN DRYWALL METAL STUD WORKER [address] [place] [address] PCP - General Family Practice 09/21/20 Denise Woodson APRN DRYWALL METAL STUD WORKER [address] [place] [address] Assigned PCP 07/17/20 Usha Simon APRN DRYWALL METAL STUD WORKER [address] [place] [address] 249445 Nurse Practitioner Neurological Surgery 01/24/24 Dangelo Salinas MD [address] [address] Neurology 01/27/24 Usha Simon APRN DRYWALL METAL STUD WORKER [address] [address] Assigned Neuroscience Provider 02/06/24 03/07/24 Anastasia Stearns, RN Lead Escrow Agent 02/06/24 Germaine Aleman, W Community Health Worker Primary Care - CC 02/18/24 Robin Zepeda MD [address] [place] [address] Assigned Neuroscience Provider 03/08/24 05/07/24 Lisa Zambrano MD 6[address] [facility] [address] [place] [address] Assigned Heart and Vascular Provider 05/08/24 07/07/24 Raul Hoyos MD [address] [place] [address] Assigned Neuroscience Provider 05/08/24 07/07/24 Joya Lira RPH [address] [place] [address] Pharmacist Pharmacist 05/25/24 Joya Lira RPH [address] [place] [address] Assigned MTM Pharmacist 06/08/24 Fabi Coates MD [address] [place] [address] 75 [place] [address] Genetics, Clinical 06/18/24 Robin Zepeda MD [address] [place] [address] Assigned Neuroscience Provider 07/08/24 08/07/24 Danna Cardenas PA-C 6405 [place] [address] Assigned Heart and Vascular Provider 07/08/24 Felicita Desai, RN Lead Escrow Agent 07/14/24 07/28/24 Arthur Salas, [facility] [address] [place] [address] Assigned Behavioral Health Provider 08/08/24 Randy Maradiaga DO 909 [place] [address] Assigned Neuroscience Provider 08/08/24 Tete Wang MD 2450 [place] [address] Genetics, Clinical 10/30/24 documented as of this encounter
--- OUTSIDE RECORDS SUMMARY | 2024-11-05 13:08 | XMS_ITS | Encounter Summary ---
Author Organization [facility] Address [address] [place] [address] Care Team Providers Care Assembler Knife Name Role Phone Yung Madrigal MD Unavailable Unavailable Winston Villatoro OD Unavailable [phone] Denise Woodson APRN CUSTOMER SERVICE COORDINATOR Unavailable [phone] Denise Woodson APRN CUSTOMER SERVICE COORDINATOR Primary Care Provider Usha Simon APRN CUSTOMER SERVICE COORDINATOR Unavailable [phone] Dangelo Sailnas MD Unavailable Usha Simon APRN CUSTOMER SERVICE COORDINATOR Unavailable Anastasia Stearns RN Unavailable [phone] Germaine Aleman CHW Unavailable [phone] Robin Zepeda MD Unavailable Lisa Zambrano MD Unavailable Raul Hoyos MD Unavailable Joya Lira [facility] Unavailable Joya Lira Joleen Unavailable Fabi Coates MD Unavailable [phone] Robin Zepeda MD Unavailable [phone] Danna Cardenas PA-C Unavailable [phone] Felicita Desai RN Unavailable Unavailab Arthur Rios Unavailable [phone] Randy Maradiaga DO Unavailable + Tete Wang MD Unavailable [phone] Reason for Visit * Reason Onset Date Comments MyChart Communication 06/08/2021 Abdominal pain Encounter Details Date Type Department Care Team (Late st Contact Info) Description 06/08/2021 [facility] [address] [place] [address] Denise Woodson APRN CUSTOMER SERVICE COORDINATOR [address] [place] [address] MyChart Communication (Abdominal pain) Social [...] on file Legal Sex Female 4:05 AM LEATHER SEASONER Gender Identity Not on file Sexual Orientation Not on file 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 Not on file Not on file Not on file Not on file Not on file Not on file documented as of this encounter Plan of Treatment Upcoming Encounters Date Type Department Care Team (Late st Contact Info) Description 11/06/2024 12:00 PM LEATHER SEASONER [facility] [address] [place] [address] Denise Woodson APRN CUSTOMER SERVICE COORDINATOR [address] [place] [address] 12/01/2024 4:00 PM CDT Virtual Visit [facility] Vascular Clinic [place] [address] [place] [phone] Lisa Zambrano MD [address] [facility] [address] [place] 273125 12/03/2024 7:00 AM CDT Virtual Visit [facility] Neurology [address] 3rd [place] [phone] Randy Maradiaga DO [address] [place] [address] 334495 12/09/2024 12:45 PM CDT Office Visit [facility] Pediatric Specialty Clinic [address] [place] [phone] Tete Wang MD [address] [place] [address] [phone] 12/09/2024 1:15 PM CDT Office Visit [facility] Pediatric Specialty Clinic [address] [place] [phone] Tete Wang MD [address] [place] [address] 177564 12/15/2024 3:00 PM CDT Virtual Visit [facility] [address] [place] [address] Denise Woodson APRN [facility] [address] [place], [place] [phone] 01/19/2025 PRE VISIT [facility] for [facility] Science and Health [address] [phone] Any Joiner MD [address] 0722[address] *-*INCOMING RECORDS*-* 01/19/2025 3:00 PM CDT Orders Only [facility] Pulmonary Function Testing [address] [phone] 01/19/2025 4:00 PM CDT Office Visit [facility] Clinic [address] [phone] Any Joiner MD 420 [facility] 276 [place], [place] 210965 06/01/2025 11:15 AM CDT Appointment [facility] Imaging [address] [place] [phone] Robin Zepeda MD [address] [place] [address] 225415 06/04/2025 11:00 AM CDT Office Visit [facility] Neurosurgery Clinic [address] [phone] Robin Zepeda MD [address] [place] [address] 608835 Usha Simon APRN [address] 1059[address] documented as of this encounter Visit Diagnoses Not on filedocumented in this encounter Additional Health Concerns Infection Onset Date Last Indicated Resolved Time Rule Out COVID-19 09/13/2024 09/13/2024 09/13/2024 12:31 PM LEATHER SEASONER Assessment Noted Time PHQ-9 Depression Total Score: 0 01/05/20 21 9:31 AM CDT documented as of this encounter Care Teams Assembler Knife Relationship Specialty Start Date End Date Yung Madrigal MD RETIRED PCP - Orthopaedics Orthopedics 08/26/12 01/20/24 Winston Villatoro OD [facility] [place] [address] [place] [address] PCP - Ophthalmology Ophthalmology 02/11/13 Denise Woodson APRN CUSTOMER SERVICE COORDINATOR [address] [facility] [address] PCP - General Family Practice 09/21/20 Denise Woodson APRN CUSTOMER SERVICE COORDINATOR [address] [place] [address] Assigned PCP 07/17/20 Usha Simon APRN CUSTOMER SERVICE COORDINATOR [address] [place] [address] 814675 Nurse Practitioner Neurological Surgery 01/24/24 Dangelo Salinas MD [address] [address] [address] Neurology 01/27/24 Usha Simon APRN CUSTOMER SERVICE COORDINATOR [address] [place] [address] Assigned Neuroscience Provider 02/06/24 03/07/24 Anastasia Stearns, RN Lead Egg Buyer 02/06/24 Germaine Aleman, CHW Community Health Worker Primary Care - CC 02/18/24 Robin Zepeda MD [address] [place] [address] 785895 Assigned Neuroscience Provider 03/08/24 05/07/24 Lisa Zambrano MD [address] [facility] [address] [place] [address] Assigned Heart and Vascular Provider 05/08/24 07/07/24 Raul Hoyos MD [address] [address] Assigned Neuroscience Provider 05/08/24 07/07/24 Joya Liar [facility] [address] [place] [address] Pharmacist Pharmacist 05/25/24 Joya Lira [facility] [address] [place] [address] Assigned MTM Pharmacist 06/08/24 Fabi Coates MD [address] [place] [address] 75 [place] [address] Genetics, Clinical 06/18/24 Robin Zepeda MD [address] [address] Assigned Neuroscience Provider 07/08/24 08/07/24 Danna Cardenas PA-C 6405 [place] [address] Assigned Heart and Vascular Provider 07/08/24 Felicita Desai RN Lead Egg Buyer 07/14/24 07/28/24 Arthur Salas, [facility] [address] [place] [address] Assigned Behavioral Health Provider 08/08/24 Randy Maradiaga DO 909 [place], [place] 867925 Assigned Neuroscience Provider 08/08/24 Tete Wang MD 2450 [place] [address] Genetics, Clinical 10/30/24 documented as of this encounter
--- OUTSIDE RECORDS SUMMARY | 2024-11-05 13:09 | XMS_ITS | Encounter Summary ---
Author Organization [facility] Address [address] [place] [address] Care Team Providers Care Taxi Driver Supervisor Name Role Phone Winston Villatoro OD Unavailable [phone] Denise Woodson APRN PAD ASSEMBLER Unavailable [phone] Denise Woodson APRN PAD ASSEMBLER Primary Care Provider Usha Simon APRN PAD ASSEMBLER Unavailable + [phone] Dangelo Salinas MD Unavailable Anastasia Stearns RN Unavailable [phone] Germaine Aleman [facility] Unavailable [phone] Joya Lira [facility] Unavailable Joya Lira [facility] Unavailable [phone] Fabi Coates MD Unavailable [phone] Robin Zepeda MD Unavailable Danna Cardenas PA-C Unavailable [phone] Felicita Desai RN Unavailable Unavailab Arthur RiosSW Unavailable [phone] Randy Maradiaga DO Unavailable + Tete Wang MD Unavailable [phone] Reason for Visit * Reason Onset Date Comments Appointment 07/14/2024 Seizure-like act ivity (H) R sided numbness/tinglinfg Encounter Details Date Type Department Care Team (Late st Contact Info) Description 07/14/2024 Telephone [facility] Neurology Clinic [address] 3rd [place] [address] None Appointment (Seizure-like activity [...] Answer Date Recorded PHQ-2 Score 4 07/16/2024 [facility] [place] of Occupat ional Health - Occupational Stress [...] on file Legal Sex Female 4:05 AM SOLAR ENERGY TECHNICIAN Gender Identity Not on file Sexual Orientation Not on file 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 Pt is already a ptof Dr. Maradiaga, senior writer unsure if the pt should be scheduled for the Seizure-like activity withMNCEP or continue with Dr. Maradiaga? Please call [facility] at [phone] for scheduling. Action Taken: Message routed to: [facility] Neurology Travel Screening: Not Applicable Date of Service: documented in this encounter Plan of Treatment Upcoming Encounters Date Type Department Care Team (Late st Contact Info) Description 11/06/2024 12:00 PM SOLAR ENERGY TECHNICIAN Virtual Visit [facility] [address] [place] [phone] Denise Woodson APRN [facility] [address] [place], [place] [phone] 12/01/2024 4:00 PM CDT Virtual Visit [facility] Vascular Clinic [place] [address] [place] [phone] Lisa Zambrano MD [address] [place] [address] 12/03/2024 7:00 AM CDT Virtual Visit [facility] Neurology Clinic [address] 3rd [place] [phone] Randy Maradiaga DO [address] [place] [address]755 12/09/2024 12:45 PM CDT Office Visit [facility] [address] [place] [address],[place] [phone] Tete Wang MD [address] [place] [address] 155044 12/09/2024 1:15 PM CDT Office Visit [facility] Pediatric Specialty Clinic [address] [place] [address],[place] [phone] Tete Wang MD [address] [place] [address] 644124 12/15/2024 3:00 PM CDT Virtual Visit [facility] [address] [place] [phone] Denise Woodson APRN PAD ASSEMBLER [address] [place] [address] 01/19/2025 PRE VISIT [facility] Lung Science [address] [phone] Any Joiner MD [address] [place] [address] 892515 *-*INCOMING RECORDS*-* 01/19/2025 3:00 PM CDT Orders Only [facility] Pulmonary Function Testing [address] 3rd [place] [address] 01/19/2025 4:00 PM CDT Office Visit [facility] Lung Science [address] [phone] Any Joiner MD [address] [place] [address] 832045 06/01/2025 11:[address] [facility] Imaging [address] [facility] [address] [place] [phone] Robin Zepeda MD [address] [place] [address] 06/04/2025 11:00 AM CDT Office Visit [facility] Neurosurgery Clinic [address] 3rd [place] [phone] Robin Zepeda MD [address] [place] [address]405 Usha Simon APRN PAD ASSEMBLER [address] [place] [address] 320155 documented as of this encounter Visit Diagnoses Not on filedocumented in this encounter Additional Health Concerns Infection Onset Date Last Indicated Resolved Time Rule Out COVID-19 09/13/2024 09/13/2024 09/13/2024 12:31 PM SOLAR ENERGY TECHNICIAN Assessment Noted Time PHQ-9 Depression Total Score: 5 03/17/20 24 9:45 AM CDT documented as of this encounter Care Teams Taxi Driver Supervisor Relationship Specialty Start Date End Date Winston Villatoro, OD [facility] [address] [facility] [address] [place] [address] PCP - Ophthalmology Ophthalmology 02/11/13 Denise Woodson APRN PAD ASSEMBLER [address] [place] [address] PCP - General Family Practice 09/21/20 Denise Woodson APRN PAD ASSEMBLER [address] [address] [place] [address] Assigned PCP 07/17/20 Usha Simon APRN PAD ASSEMBLER [address] 608465 Nurse Practitioner Neurological Surgery 01/24/24 Dangelo Salinas MD [address] [place] [address] Neurology 01/27/24 Anastasia Stearns, RN Lead Superintendent Operations Division 02/06/24 Germaine Aleman, W Community Health Worker Primary Care - CC 02/18/24 Joya Lira [facility] [address] [place], [place] [phone] Pharmacist Pharmacist 05/25/24 Joya Lira [facility] [address] [place], [place] 57[address] Assigned MTM Pharmacist 06/08/24 Fabi Coates MD [address] [place] [address] 75 [place], [place] 104045 Genetics, Clinical 06/18/24 Robin Zepeda MD [address] 202915 Assigned Neuroscience Provider 07/08/24 08/07/24 Danna Cardenas PA-C 6405 [place], [place] 147185 Assigned Heart and Vascular Provider 07/08/24 Felicita Desai, RN Lead Superintendent Operations Division 07/14/24 07/28/24 Arthur Salas [facility] [address] [address] Assigned Behavioral Health Provider 08/08/24 Randy Maradiaga DO [address] [place] [address] 784525 Assigned Neuroscience Provider 08/08/24 Tete Wang MD [facility] [place] [address] Genetics, Clinical 10/30/24 documented as of this encounter
--- OUTSIDE RECORDS SUMMARY | 2024-11-05 13:09 | XMS_ITS | Encounter Summary ---
Author Organization [place] Address [address] [place] [address]19 Care Team Providers Care Dye Colorist Dyer Name Role Phone Winston Villatoro OD Unavailable [phone] Denise Woodson APRN PHOTOFINISHING LABORATORY WORKER Unavailable [phone] Denise Woodson APRN PHOTOFINISHING LABORATORY WORKER Primary Care Provider Usha Simon APRN [facility] Unavailable + [phone] Dangelo Salinas MD Unavailable Anastasia Stearns RN Unavailable +[phone] Germaine Aleman [facility] Unavailable [phone] Joya Lira [facility] Unavailable +[phone] Joya Lira [facility] Unavailable [phone] Fabi Coates MD Unavailable [phone] Danna CardenasC Unavailable [phone] Arthur Salas [employer] Unavailable [phone] Randy Maradiaga DO Unavailable + Encounter Details Date Type Department Care Team (Latest Contact Info) Description 09/24/2024 Travel Social History Tobacco Use Types Packs/Day [...] Never 09/16/2024 How often do you attend uatsdin or spiritism serv ices? 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 Not on file Not on file Not on file Not on file Not on file documented as of this encounter Plan of Treatment Upcoming Encounters Date Type Department Care Team (Late st Contact Info) Description 11/06/2024 12:00 PM FREIGHT COORDINATOR Virtual Visit [facility] [address] [place] [address] Denise Woodson APRN PHOTOFINISHING LABORATORY WORKER [address] [place] [address] 12/01/2024 4:00 PM CDT Virtual Visit [facility] [place] [address] [phone] Lisa Zambrano MD [address] [facility] [address] [place] 9[address]105 12/03/2024 7:00 AM CDT Virtual Visit [facility] Neurology [address] 3rd [place] [phone] Randy Maradiaga DO [address] [place] [address] 659155 12/09/2024 12:45 PM CDT Office Visit [facility] [address] [place] [address] [phone] Tete Wang MD [address] [place] [address] [phone] 12/09/2024 1:15 PM CDT Office Visit [facility] [address] [place] [address] [phone] Tete Wang MD [address] [place] [address] 244224 12/15/2024 3:00 PM CDT Virtual Visit [facility] [address] [place] [address] Denise Woodson APRN [facility] [address] [place], [place] [phone] 01/19/2025 PRE VISIT [facility] [address] [phone] Any Joiner MD [address] 790[address] *-*INCOMING RECORDS*-* 01/19/2025 3:00 PM CDT Orders Only [facility] Pulmonary Function Testing [address] [phone] 01/19/2025 4:00 PM CDT Office Visit [facility] [address] [phone] Any Joiner MD 420 [facility] 276 [place], [place] 663745 06/01/2025 11:15 AM CDT Appointment [facility] Imaging [address] [place] [phone] Robin Zepeda MD [address] [place] [address] 472245 06/04/2025 11:00 AM CDT Office Visit [facility] [address] [phone] Robin Zepeda MD [address] [place] [address] 792045 Usha Simon APRN [address] 091625 documented as of this encounter Visit Diagnoses Not on filedocumented in this encounter Additional Health Concerns Assessment Noted Time PHQ-9 Depression Total Score: 0 09/18/19 25 12:46 PM FREIGHT COORDINATOR documented as of this encounter Care Teams Dye Colorist Dyer Relationship Specialty Start Date End Date Winston Villatoro OD [facility] [place] [address] [facility] [address] [place] [address] PCP - Ophthalmology Ophthalmology 02/11/13 Denise Woodson APRN PHOTOFINISHING LABORATORY WORKER [address] [place] [address] PCP - General Family Practice 09/21/20 Denise Woodson APRN PHOTOFINISHING LABORATORY WORKER [address] [place] [address] Assigned PCP 07/17/20 Usha Simon APRN PHOTOFINISHING LABORATORY WORKER 909 [facility]2121[place], [place] 917225 Nurse Practitioner Neurological Surgery 01/24/24 Dangelo Salinas MD [address] [place], [place] [phone] Neurology 01/27/24 Anastasia Stearns, RN Lead Health Commissioner 02/06/24 Germaine Aleman, W Community Health Worker Primary Care - CC 02/18/24 Joya Lira [facility] [address] [address] Pharmacist Pharmacist 05/25/24 Joya Lira [facility] [address] [place] [address] Assigned MTM Pharmacist 06/08/24 Fabi Coates MD 420 [facility] 75 [place] [address] Genetics, Clinical 06/18/24 Danna Cardenas, PANilesC [address] [place] [address] Assigned Heart and Vascular Provider 07/08/24 Arthur Salas LICSW [address] [address] Assigned Behavioral Health Provider 08/08/24 Randy Maradiaga DO [address] [place] [address] Assigned Neuroscience Provider 08/08/24 documented as of this encounter
--- OUTSIDE RECORDS SUMMARY | 2024-11-05 13:09 | XMS_ITS | Encounter Summary ---
Author Organization [place] Address [address] [place] [address] Care Team Providers Care Respiratory Care Assistant Name Role Phone Winston Villatoro OD Unavailable [phone] Denise Woodson APRN HOUSE CARPENTER HELPER Unavailable [phone] Denise Woodson APRN HOUSE CARPENTER HELPER Primary Care Provider Usha Simon APRN HOUSE CARPENTER HELPER Unavailable + [phone] Dangelo Salinas MD Unavailable Anastasia Stearns RN Unavailable [phone] Germaine Aleman CH Unavailable [phone] Robin Zepeda MD Unavailable [phone] Lisa Zambrano MD Unavailable Raul Hoyos MD Unavailable Joya Lira RP Unavailable [phone] Joya Lira RPJoleen Unavailable Fabi Coates MD Unavailable [phone] Robin Zepeda MD Unavailable Danna CardenasC Unavailable [phone] Felicita Desai RN Unavailable Unavailab Arthur Rios Unavailable +[phone] Randy Maradiaga DO Unavailable + Tete Wang MD Unavailable +[phone] Encounter Details Date Type Department Care Team (Late st Contact Info) Description 03/16/2024 MyC Medical Advice [facility] Neurology Clinic [address] 3rd [place] [address] Ora Bazan Social History Tobacco [...] How often do you attend confucianism or congregation serv ices? 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 [place] [address] Lisa Zambrano MD [address] [place] [address] 12/03/2024 7:00 AM CDT Virtual Visit [facility] Neurology [address] [phone] Randy Maradiaga, [address] 667[address] 12/09/2024 12:45 PM CDT Office Visit [facility] [address] [place] [address] [phone] Tete Wang MD [address] [place] [address] 12/09/2024 1:15 PM CDT Office Visit [facility] [address] [place] [address] [phone] Tete Wang MD [address] [place] [address] 632984 12/15/2024 3:00 PM CDT Virtual Visit [facility] [address] [place] [phone] Denise Woodson APRN [facility] [address] [place], [place] 4276968 01/19/2025 PRE VISIT [facility] Lung Science [address] [phone] Any Joiner MD [address] [place] [address] 977925 *-*INCOMING RECORDS*-* 01/19/2025 3:00 PM CDT Orders Only [facility] Pulmonary Function Testing [address] [phone] 01/19/2025 4:00 PM CDT Office Visit [facility] Lung Science [address] [phone] Any Joiner MD [address] [place] [address] 231355 06/01/2025 11:15 AM CDT Appointment [facility] [address] [facility] [address] [place] [phone] Robin Zepeda MD [address] [place] [address] 06/04/2025 11:00 AM CDT Office Visit [address] [phone] Robin Zepeda MD [address] [place] [address] 115695 Usha Simon APRN HOUSE CARPENTER HELPER [address] [place] [place] [address] [address] documented as of this encounter Visit Diagnoses Not on filedocumented in this encounter Additional Health Concerns Infection Onset Date Last Indicated Resolved Time Rule Out COVID-19 09/13/2024 09/13/2024 09/13/2024 12:31 PM FIREPROOF DOOR ASSEMBLER Assessment Noted Time PHQ-9 Depression Total Score: 16 024 3:27 PM CDT documented as of this encounter Care Teams Respiratory Care Assistant Relationship Specialty Start Date End Date Winston Villatoro OD [facility] [place] 701 [facility] [address] [place] [address] PCP - Ophthalmology Ophthalmology 02/11/13 Denise Woodson APRN HOUSE CARPENTER HELPER [address] [place] [address] PCP - General Family Practice 09/21/20 Denise Woodson APRN HOUSE CARPENTER HELPER [address] [place] [address] Assigned PCP 07/17/20 Usha Simon APRN HOUSE CARPENTER HELPER [address] [address] Nurse Practitioner Neurological Surgery 01/24/24 Dangelo Salinas MD [address] [place], [place] [phone] Neurology 01/27/24 Anastasia Stearns, RN Lead Proposal Director 02/06/24 Germaine Aleman, CHW Community Health Worker Primary Care - CC 02/18/24 Robin Zepeda MD [address] [address] Assigned Neuroscience Provider 03/08/24 05/07/24 Lisa Zambrano MD 6405 [facility] [address] [place] [address] Assigned Heart and Vascular Provider 05/08/24 07/07/24 Raul Hoyos MD [address] [place] [address] Assigned Neuroscience Provider 05/08/24 07/07/24 Joya Lira [facility] [address] [place] [address] Pharmacist Pharmacist 05/25/24 Joya Lira [facility] [address] [place] [address] Assigned MTM Pharmacist 06/08/24 Fabi Coates MD [address] [place] [address] 75 [place] [address] Genetics, Clinical 06/18/24 Robin Zepeda MD [address] [place] [address] Assigned Neuroscience Provider 07/08/24 08/07/24 Danna Cardenas PA-C 6405 [place] [address] Assigned Heart and Vascular Provider 07/08/24 Felicita Desai, RN Lead Proposal Director 07/14/24 07/28/24 Arthur Salas, [facility] [address] [place] [address] Assigned Behavioral Health Provider 08/08/24 Randy Maradiaga DO 909 [place], [place] 493685 Assigned Neuroscience Provider 08/08/24 Tete Wang MD 2450 [place], [place] 390234 Genetics, Clinical 10/30/24 documented as of this encounter
--- OUTSIDE RECORDS SUMMARY | 2024-11-05 13:09 | XMS_ITS | Encounter Summary ---
Author Organization [place] Address [address] [place] [address] Care Team Providers Care Channel Specialist Name Role Phone Yung Madrigal MD Unavailable Unavailable Winston Villatoro OD Unavailable [phone] Denise Woodson APRN HOGSHEAD OPENER Unavailable [phone] Denise Woodson APRN HOGSHEAD OPENER Primary Care Provider Usha Simon APRN HOGSHEAD OPENER Unavailable [phone] Dangelo Salinas MD Unavailable Usha Simon APRN HOGSHEAD OPENER Unavailable Anastasia Stearns RN Unavailable [phone] Germaine Aleman CHW Unavailable Robin Zepdea MD Unavailable Lisa Zambrano MD Unavailable Raul Hoyos MD Unavailable Joya Lira [facility] Unavailable Joya Lira Joleen Unavailable Fabi Coates MD Unavailable [phone] Robin Zepeda MD Unavailable Danna Cardenas PA-C Unavailable Felicita Desai RN Unavailable Unavailab Arthur Rios Unavailable [phone] Randy Maradiaga DO Unavailable + Tete Wang MD Unavailable [phone] Encounter Details Date Type Department Care Team (Late st Contact Info) Description 12/30/2020 MyC Medical Advice [facility] [address] [place] [address] Jessica Phipps, AMBULANCE MECHANIC Social History Tobacco Use Types Packs/Day Years Used Date Smoking Tobacco: Never Smokeless Tobacco: Never Alcohol Use Standard Drinks/Week Comments Yes 0 (1 standard drink = 0.6 oz pur e alcohol) minimal PHQ-2 Answer Date Recorded PHQ-2 Score 2 07/13/2020 Comments No Sex and Gender Information Value Date Recorded Sex Assigned at Not on file Legal Sex Female 4:05 AM FIELD CROP FARMWORKER Gender Identity Not on file Sexual Orientation Not on file 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 [place] [phone] Lisa Zambrano MD [address] [place] [address] 12/03/2024 7:00 AM CDT Virtual Visit [facility] Neurology [address] [phone] Randy Maradiaga DO [address] [place] [address] 765705 12/09/2024 12:45 PM CDT Office Visit [facility] [address] [place] [address] [phone] Tete Wang MD [address] [place] [address] 844734 12/09/2024 1:15 PM CDT Office Visit [facility] [address] [place] [address] [phone] Tete Wang MD [address] [place] [address] [phone] 12/15/2024 3:00 PM CDT Virtual Visit [facility] [address] [place] [address] Denise Woodson APRN [facility] [address] [place] [address] [phone] 01/19/2025 PRE VISIT [facility] [address] [phone] Any Joiner MD 420 [facility] 276 [place], [place] [phone] *-*INCOMING RECORDS*-* 01/19/2025 3:00 PM CDT Orders Only [facility] Pulmonary Function Testing [place] 909 [facility] 3rd [place] [phone] 01/19/2025 4:00 PM CDT Office Visit [facility] [place] [address] [place] [address] [phone] Any Joiner MD 420 [facility] 276 [place], [place] 701455 06/01/2025 11:15 AM CDT Appointment [facility] Imaging [address] [place] [address] [place] [phone] Robin Zepeda MD [address] [place] [address] 516595 06/04/2025 11:00 AM CDT Office Visit [facility] Neurosurgery Clinic [place] [address] [place] [address] [phone] Robin Zepeda MD [address] [place] [address] 999195 Usha Simon APRN HOGSHEAD OPENER [address] [place] [address] 093075 documented as of this encounter Visit Diagnoses Not on filedocumented in this encounter Additional Health Concerns Infection Onset Date Last Indicated Resolved Time Rule Out COVID-19 09/13/2024 09/13/2024 09/13/2024 12:31 PM FIELD CROP FARMWORKER Assessment Noted Time PHQ-9 Depression Total Score: 0 06/15/20 19 7:09 PM CDT documented as of this encounter Care Teams Channel Specialist Relationship Specialty Start Date End Date Yung Madrigal MD RETIRED PCP - Orthopaedics Orthopedics 08/26/12 01/20/24 Winston Villatoro, OD [facility] [place] 701 [facility] [address] [place], [place] [phone] PCP - Ophthalmology Ophthalmology 02/11/13 Denise Woodson APRN HOGSHEAD OPENER [address] [place] [address] PCP - General Family Practice 09/21/20 Denise Woodson APRN HOGSHEAD OPENER [address] [place] [address] Assigned PCP 07/17/20 Usha Simon APRN HOGSHEAD OPENER [address] [place] [address] 423045 Nurse Practitioner Neurological Surgery 01/24/24 Dangelo Salinas MD [address] [id number] Neurology 01/27/24 Usha Simon APRN HOGSHEAD OPENER [address] 337965 Assigned Neuroscience Provider 02/06/24 03/07/24 Anastasia Stearns, RN Lead Appraiser 02/06/24 Germaine Aleman, CHW Community Health Worker Primary Care - CC 02/18/24 Robin Zpeeda MD [address] 457435 Assigned Neuroscience Provider 03/08/24 05/07/24 Lisa Zambrano MD 6405 [facility] [address] [place] [address] Assigned Heart and Vascular Provider 05/08/24 07/07/24 Raul Hoyos MD [address] [address] Assigned Neuroscience Provider 05/08/24 07/07/24 Joya Lira [facility] [address] [facility] [place] [address] Pharmacist Pharmacist 05/25/24 Joya Lira [facility] [address] [address] Assigned MTM Pharmacist 06/08/24 Fabi Coates MD [address] [place] [address] 75 [place] [address] Genetics, Clinical 06/18/24 Robin Zepeda MD [address] [address] Assigned Neuroscience Provider 07/08/24 08/07/24 Danna Cardenas PA-C 6405 [place] [address] Assigned Heart and Vascular Provider 07/08/24 Felicita Desai, GEMA Lead Appraiser 07/14/24 07/28/24 Arthur Salas [facility] [address] [place] [address] Assigned Behavioral Health Provider 08/08/24 Randy Maradiaga DO 909 [place] [address] Assigned Neuroscience Provider 08/08/24 Tete Wang MD [facility] [place] [place] [address] Genetics, Clinical 10/30/24 documented as of this encounter
--- OUTSIDE RECORDS SUMMARY | 2024-11-05 13:09 | XMS_ITS | Encounter Summary ---
Author Organization [place] Address [address] [place] [address] Care Team Providers Care Broomcorn Sorter Name Role Phone Winston Villatoro OD Unavailable [phone] Denise Woodson APRN GAS OPERATIONS SUPERINTENDENT Unavailable [phone] Denise Woodson APRN GAS OPERATIONS SUPERINTENDENT Primary Care Provider Usha Simon APRN GAS OPERATIONS SUPERINTENDENT Unavailable + [phone] Dangelo Salinas MD Unavailable Anastasia Stearns RN Unavailable Germaine Aleman [facility] Unavailable [phone] Joya Lira [facility] Unavailable [phone] Joya Lira [facility] Unavailable [phone] Fabi Coates MD Unavailable [phone] Danna Cardenas PA-C Unavailable [phone] Arthur Salas SEDIMENTATIONIST Unavailable [phone] Randy Maradiaga DO Unavailable + Tete Wang MD Unavailable [phone] Encounter Details Date Type Department Care Team (Late st Contact Info) Description 10/05/2024 [facility] Neurology [address] [place] [address] Phoebe Del Cid Social History [...] Never 09/16/2024 How often do you attend pentecostal or voodoo serv ices? 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 [address] [place] [address] 12/01/2024 4:00 PM CDT Virtual Visit [facility] [place] [address] [place] [phone] Lisa Zambrano MD [address] [place] [address] 12/03/2024 7:00 AM CDT [facility] Visit [facility] Neurology [address] 3rd [place] [phone] Randy Maradiaga, [address] 545[address] 12/09/2024 12:45 PM CDT Office Visit [facility] [address] [place] [address] [phone] Tete Wang MD [address] [place] [address] 423034 12/09/2024 1:15 PM CDT Office Visit [facility] [address] [place] [address] [phone] Tete Wang MD [address] [place] [address] 12/15/2024 3:00 PM CDT Virtual Visit [facility] [address] [place] [address] Denise Woodson APRN [facility] [address] [place], [place] [phone] 01/19/2025 PRE VISIT [facility] Health [address] [phone] Any Joiner MD [address] [place] [address] 942935 *-*INCOMING RECORDS*-* 01/19/2025 3:00 PM CDT Orders Only [facility] Pulmonary Function Testing [address] [phone] 01/19/2025 4:00 PM CDT Office Visit [facility] Lung Science [facility] Health [address] [phone] Any Joiner MD [address] [place] [address] 806615 06/01/2025 11:[address] [facility] Imaging [address] [facility] [address] [place] [phone] Robin Zepeda MD [address] [place] [address] 388755 06/04/2025 11:00 AM CDT Office Visit [facility] Neurosurgery [address] [phone] Robin Zepeda MD [address] [place] [address] 709985 Usha Simon APRN [address] [phone] documented as of this encounter Visit Diagnoses Not on filedocumented in this encounter Additional Health Concerns Assessment Noted Time PHQ-9 Depression Total Score: 0 09/18/19 25 12:46 PM RECEPTIONIST TELEPHONE OPERATOR documented as of this encounter Care Teams Broomcorn Sorter Relationship Specialty Start Date End Date Winston Villatoro OD [facility] [place] [address] [place] [address] PCP - Ophthalmology Ophthalmology 02/11/13 Denise Woodson APRN GAS OPERATIONS SUPERINTENDENT [address] [place] [address] PCP - General Family Practice 09/21/20 Denise Woodson APRN GAS OPERATIONS SUPERINTENDENT [address] [place] [address] Assigned PCP 07/17/20 Usha Simon APRN GAS OPERATIONS SUPERINTENDENT 909 [facility]121[place] [address] Nurse Practitioner Neurological Surgery 01/24/24 Dangelo Salinas MD [address] [place], [place] [phone] Neurology 01/27/24 Anastasia Stearns, RN Lead Well Drill Operator 02/06/24 Germaine Aleman, W Community Health Worker Primary Care - CC 02/18/24 Joya Lira [facility] [address] [place] [address] Pharmacist Pharmacist 05/25/24 Joya Lira [facility] [address] [place] [address] Assigned MTM Pharmacist 06/08/24 Fabi Coates MD 420 [facility] 75 [place] [address] Genetics, Clinical 06/18/24 Danna Cardenas PA-C 6405 [place] [address] Assigned Heart and Vascular Provider 07/08/24 Arthur Salas [facility] [address] [place] [address] Assigned Behavioral Health Provider 08/08/24 Randy Maradiaga DO 909 [place] [address] Assigned Neuroscience Provider 08/08/24 Tete Wang MD 2450 [place] [address] Genetics, Clinical 10/30/24 documented as of this encounter
--- OUTSIDE RECORDS SUMMARY | 2024-11-05 13:09 | XMS_ITS | Encounter Summary ---
Author Organization [place] Address [address] [place] [address] Care Team Providers Care Applications Support Lead Name Role Phone Yung Madrigal MD Unavailable Unavailable Winston Villatoro OD Unavailable [phone] Denise Woodson APRN DRILLER'S ASSISTANT Unavailable [phone] Denise Woodson APRN DRILLER'S ASSISTANT Primary Care Provider Usha Simon APRN DRILLER'S ASSISTANT Unavailable [phone] Dangelo Salinas MD Unavailable Usha Simon APRN DRILLER'S ASSISTANT Unavailable Anastasia Stearns RN Unavailable [phone] Germaine Aleman CHW Unavailable Robin Zepeda MD Unavailable Lisa Zambrano MD Unavailable Raul Hoyos MD Unavailable Joya Lira [facility] Unavailable [phone] Joya Lira Joleen Unavailable Fabi Coates MD Unavailable [phone] Robin Zepeda MD Unavailable Danna Cardenas PA-C Unavailable Felicita Desai RN Unavailable Unavailab Arthur Rios Unavailable [phone] Randy Maradiaga DO Unavailable + Tete Wang MD Unavailable [phone] Encounter Details Date Type Department Care Team (Late st Contact Info) Description 01/22/2022 MyC [facility] [address] [place] [address] Angelo Escobar Social History Tobacco [...] on file Legal Sex Female 4:05 AM JAVA INTEGRATION DEVELOPER Gender Identity Not on file Sexual Orientation Not on file 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 Not on file Not on file Not on file Not on file Not on file Not on file documented as of this encounter Miscellaneous Notes * Telephone Encounter - Tran Castro RN - 01/22/2022 5:19 PM CDT documented in this encounter Plan of Treatment Upcoming Encounters Date Type Department Care Team (Late Contact Info) Description 11/06/2024 12:00 PM JAVA INTEGRATION DEVELOPER [facility] [address] [facility] [place] [address] Denise Woodson APRN DRILLER'S ASSISTANT [address] [place] [address] 12/01/2024 4:00 PM CDT Virtual Visit [facility] [place] [address] [phone] Lisa Zambrano MD 6405 [facility] [address] [place] [address] 12/03/2024 7:00 AM CDT Virtual Visit [facility] Neurology [address] 3rd [place] [phone] Randy Maradiaga, [address] 245[address] 12/09/2024 12:45 PM CDT Office Visit [facility] [address] [place] [phone] Tete Wang MD [address] [place] [address] 067364 12/09/2024 1:15 PM CDT Office Visit [facility] [address] [place] [address] [phone] Tete Wang MD [address] [place] [address] 339164 12/15/2024 3:00 PM CDT Virtual Visit [facility] [address] [place] [address] [phone] Denise Woodson APRN [facility] [address] [place] [address] 01/19/2025 PRE VISIT [facility] [address] [phone] Any Joiner MD [address] [place] [address] [phone] *-*INCOMING RECORDS*-* 01/19/2025 3:00 PM CDT Orders Only [facility] Pulmonary Function Testing [address] [phone] 01/19/2025 4:00 PM CDT Office Visit [facility] [address] [phone] Any Joiner MD 420 [facility] 276 [place] [address] 06/01/2025 11:15 AM CDT Appointment [facility] Imaging [address] [place] [phone] Robin Zepeda MD [address] [place] [address] 499225 06/04/2025 11:00 AM CDT Office Visit [facility] Neurosurgery [address] [phone] Robin Zepeda MD [address] [place] [address] Usha Simon APRN [address] [address] documented as of this encounter Visit Diagnoses Not on filedocumented in this encounter Additional Health Concerns Infection Onset Date Last Indicated Resolved Time Rule Out COVID-19 09/13/2024 09/13/2024 09/13/2024 12:31 PM JAVA INTEGRATION DEVELOPER Assessment Noted Time PHQ-9 Depression Total Score: 0 06/23/20 21 4:11 PM CDT documented as of this encounter Care Teams Applications Support Lead Relationship Specialty Start Date End Date Yung Madrigal MD RETIRED PCP - Orthopaedics Orthopedics 08/26/12 01/20/24 Winston Villatoro OD [facility] [place] [address] [facility] [address] [place] [address] PCP - Ophthalmology Ophthalmology 02/11/13 Denise Woodson APRN DRILLER'S ASSISTANT [address] [place] [address] PCP - General Family Practice 09/21/20 Denise Woodson APRN DRILLER'S ASSISTANT [address] [place] [address] Assigned PCP 07/17/20 Usha Simon APRN DRILLER'S ASSISTANT [address] [place] [address] 234085 Nurse Practitioner Neurological Surgery 01/24/24 Dangelo Salinas MD 1650 [facility] [address] [address] Neurology 01/27/24 Usha Simon APRN DRILLER'S ASSISTANT [address] [place] [address] Assigned Neuroscience Provider 02/06/24 03/07/24 Anastasia Stearns, RN Lead Hogshead Head Matcher 02/06/24 Germaine Aleman, CHW Community Health Worker Primary Care - CC 02/18/24 Robin Zepeda MD [address] [place] [address] Assigned Neuroscience Provider 03/08/24 05/07/24 Lisa Zambrano MD 6405 [facility] [address] [place] [address] Assigned Heart and Vascular Provider 05/08/24 07/07/24 Raul Hoyos MD [address] [address] Assigned Neuroscience Provider 05/08/24 07/07/24 Joya Lira [facility] [address] [place] [address] Pharmacist Pharmacist 05/25/24 Joya Lira [facility] [address] [place] [address] Assigned MTM Pharmacist 06/08/24 aFbi Coates MD [address] [place] [address] 75 [place] [address] Genetics, Clinical 06/18/24 Robin Zepeda MD [address] [address] Assigned Neuroscience Provider 07/08/24 08/07/24 Danna Cardenas PA-C 6405 [place] [address] Assigned Heart and Vascular Provider 07/08/24 Felicita Desai, RN Lead Hogshead Head Matcher 07/14/24 07/28/24 Arthur Salas, [facility] [address] [place] [address] Assigned Behavioral Health Provider 08/08/24 Randy Maradiaga DO 909 [place], [place] 334645 Assigned Neuroscience Provider 08/08/24 Tete Wang MD 2450 [place], [place] 081974 Genetics, Clinical 10/30/24 documented as of this encounter
--- OUTSIDE RECORDS SUMMARY | 2024-11-05 13:09 | XMS_ITS | Encounter Summary ---
Author Organization [place] Address [address] [place] [address] Care Team Providers Care Automatic Riveting Machine Operator Name Role Phone Winston Villatoro OD Unavailable [phone] Denise Woodson APRN SURVEY RESEARCH ANALYST Unavailable [phone] Denise Woodson APRN SURVEY RESEARCH ANALYST Primary Care Provider Usha Simon APRN SURVEY RESEARCH ANALYST Unavailable [phone] Dangelo Salinas MD Unavailable Anastasia Stearns RN Unavailable [phone] Germaine Aleman [facility] Unavailable [phone] Joya Lira [facility] Unavailable [phone] Joya Lira [facility] Unavailable [phone] Fabi Coates MD Unavailable [phone] Danna CardenasC Unavailable [phone] Arthur Salas PROFESSOR OF RELIGIOUS STUDIES Unavailable [phone] Randy Maradiaga DO Unavailable + Tete Wang MD Unavailable [phone] Reason for Visit * Reason Onset Date Comments Erroneous encounter-disregard 09/18/2024 Encounter Details Date Type Department Care Team (Late st Contact Info) Description 09/18/2024 Telephone [facility] [address] [place] [address] Denise Woodson APRN [facility] [address] [place], [place] [phone] Erroneous encounter-disregard Social History Tobacco Use Types [...] How often do you attend islam or scientologist serv ices? Never 09/16/2024 Do you belong [...] Answer Date Recorded PHQ-2 Score 0 09/18/2024 [facility] [place] of Occupat ional Health - Occupational Stress [...] on file Legal Sex Female 4:05 AM RECREATION THERAPIST Gender Identity Not on file Sexual Orientation [...] st Contact Info) Description 11/06/2024 12:00 PM RECREATION THERAPIST Virtual Visit [facility] [address] [place] [phone] Denise Woodson APRN [facility] [address] [place], [place] [phone] 12/01/2024 4:00 PM CDT Virtual Visit [facility] Vascular [facility] [address] [place] [phone] Lisa Zambrano MD [address] [place] 6[address] 12/03/2024 7:00 AM CDT Virtual Visit [facility] Neurology [address] [phone] Randy Maradiaga, [address] [address] 12/09/2024 12:45 PM CDT Office Visit [facility] [address] [place] [address] [phone] Tete Wang MD [address] [place] [address] 084594 12/09/2024 1:15 PM CDT Office Visit [facility] [address] [place] [address] [phone] Tete Wang MD [address] [place] [address] 108754 12/15/2024 3:00 PM CDT Virtual Visit [facility] [address] [place] [phone] Denise Woodson APRN SURVEY RESEARCH ANALYST [address] [place] [address] 01/19/2025 PRE VISIT [facility] Lung Science [address] [phone] Any Joiner MD [address] [place] [address] 361685 *-*INCOMING RECORDS*-* 01/19/2025 3:00 PM CDT Orders Only [facility] Pulmonary Function Testing [address] [phone] 01/19/2025 4:00 PM CDT Office Visit [facility] Lung Science [address] [phone] Any Joiner MD [address] [place] [address] 234615 06/01/2025 11:15 AM CDT Appointment [facility] Imaging [address] [facility] [address] [place] [phone] Robin Zepeda MD [address] [place] [address] 696475 06/04/2025 11:00 AM CDT Office Visit [facility] Neurosurgery [address] [phone] Robin Zepeda MD [address] [place] [address] 723245 Usha Simon APRN SURVEY RESEARCH ANALYST [address] [place] [address] 884655 documented as of this encounter Visit Diagnoses Not on filedocumented in this encounter Additional Health Concerns Assessment Noted Time PHQ-9 Depression Total Score: 0 09/18/19 25 12:46 PM RECREATION THERAPIST documented as of this encounter Care Teams Automatic Riveting Machine Operator Relationship Specialty Start Date End Date Winston Villatoro OD [facility] [place] [address] [place] [address] PCP - Ophthalmology Ophthalmology 02/11/13 Denise Woodson APRN SURVEY RESEARCH ANALYST [address] [place], [place] [phone] PCP - General Family Practice 09/21/20 Denise Woodson APRN SURVEY RESEARCH ANALYST [address] [place], [place] 4180568 Assigned PCP 07/17/20 Usha Simon APRN SURVEY RESEARCH ANALYST [address] [address] Nurse Practitioner Neurological Surgery 01/24/24 Dangelo Salinas MD [address] [place] [address] Neurology 01/27/24 Anastasia Stearns, RN Lead Can Runner 02/06/24 Germaine Aleman, W Community Health Worker Primary Care - CC 02/18/24 Joya Lira RPH [address] [place] [address] Pharmacist Pharmacist 05/25/24 Joya Lira RPH [address] [place] [address] Assigned MTM Pharmacist 06/08/24 Fabi Coates MD 420 [facility] 75 [place] [address] Genetics, Clinical 06/18/24 Danna Cardenas PA-C 6405 [place] [address] Assigned Heart and Vascular Provider 07/08/24 Arthur Salas [facility] [address] [place] [address] Assigned Behavioral Health Provider 08/08/24 Randy Maradiaga DO 909 [place] [address] Assigned Neuroscience Provider 08/08/24 Tete Wang MD 2450 [place] [address] Genetics, Clinical 10/30/24 documented as of this encounter
--- OUTSIDE RECORDS SUMMARY | 2024-11-05 13:09 | XMS_ITS | Encounter Summary ---
Author Organization [place] Address [address] [place] [address] Care Team Providers Care Utilization Specialist Name Role Phone Winston Villatoro OD Unavailable [phone] Denise Woodson APRN [employer] Unavailable [phone] Denise Woodson APRN [employer] Primary Care Provider Usha Simon APRN [employer] Unavailable + [phone] Dangelo Salinas MD Unavailable Anastasia Stearns RN Unavailable Germaine Aleman [facility] Unavailable Joya Lira [facility] Unavailable Joya Lira [facility] Unavailable Fabi Coates MD Unavailable [phone] Danna Cardenas PA-C Unavailable [phone] Arthur Salas FAST FOOD WORKER Unavailable [phone] Randy Maradiaga DO Unavailable + Encounter Details Date Type Department Care Team (Late st Contact Info) Description 10/05/2024 Telephone [facility] Neurology [address] 3rd [place] [address] Randy Maradiaga DO 909 [place] [address] Social History Tobacco Use Types Packs/Day Years [...] Never 09/16/2024 How often do you attend voodoo or episcopalian serv ices? 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 Declining to schedule a follow up at this time, and will call back to schedule as needed. Action Taken: Other: None Travel Screening: Not Applicable N AGENT * Telephone Encounter - NinaAdelaideShawna - 10/05/2024 1:59 PM CST Left Voicemail (1st Attempt) and Sent Mychart (1st Attempt) for the patient to call back and schedule the following: Appointment type: Return Neuro Provider: Dr. Maradiaga Return date: 2025 Specialty phone number: [phone] Additional appointment(s) needed: NA Additonal Notes: N AGENT documented in this encounter Plan of Treatment Upcoming Encounters Date Type Department Care Team (Late st Contact Info) Description 11/06/2024 12:00 PM CABIN AGENT Virtual Visit [facility] [address] [place] [phone] Denise Woodson APRN [facility] [address] [place], [place] [phone] 12/01/2024 4:00 PM CDT Virtual Visit [facility] [address] [place] [phone] Lisa Zambrano MD [address] [place] [address] 12/03/2024 7:00 AM CDT Virtual Visit [facility] [address] 3rd [place] [phone] Randy Maradiaga DO [address] [place] [address] 12/09/2024 12:45 PM CDT Office Visit [facility] [address] [phone] Tete Wang MD [address] [place] [address] 410854 12/09/2024 1:15 PM CDT Office Visit [facility] Specialty Clinic [address] [place] [phone] Tete Wang MD [address] [place] [address] 12/15/2024 3:00 PM CDT Virtual Visit [address] [phone] Denise Woodson APRN CNP [address] [place] [address] [phone] 01/19/2025 PRE VISIT [facility] Lung Science [facility] [address] [phone] Any Joiner MD [address] [place] [address] 002875 *-*INCOMING RECORDS*-* 01/19/2025 3:00 PM CDT Orders Only [facility] Pulmonary Function Testing [address] 3rd [place] [phone] 01/19/2025 4:00 PM CDT Office Visit [facility] Lung Science [facility] Health [address] [phone] Any Joiner MD [address] [place] [address] [phone] 06/01/2025 11:15 AM CDT Appointment [facility] Imaging [address] [address] [place] [phone] Robin Zepeda MD [address] [place] [address] 536895 06/04/2025 11:00 AM CDT Office Visit [facility] Neurosurgery Clinic [address] 3rd [place] [phone] Robin Zepeda MD [address] [place] [address] 903275 Usha Simon APRN [employer] [address] [place] [address] 031405 documented as of this encounter Visit Diagnoses Not on filedocumented in this encounter Additional Health Concerns Assessment Noted Time PHQ-9 Depression Total Score: 0 09/18/19 25 12:46 PM CABIN AGENT documented as of this encounter Care Teams Utilization Specialist Relationship Specialty Start Date End Date Winston Villatoro OD [facility] [place] 701 [facility] [address] [place] [address] PCP - Ophthalmology Ophthalmology 02/11/13 Denise Woodson APRN [employer] [address] [place] [address] PCP - General Family Practice 09/21/20 Denise Woodson APRN [employer] [address] [address] Assigned PCP 07/17/20 Usha Simon APRN [employer] [address] [place] [address] [phone] Nurse Practitioner Neurological Surgery 01/24/24 Dangelo Salinas MD [address] [facility] [address] [id number] Neurology 01/27/24 Anastasia Stearns, RN Lead Hand Grinder 02/06/24 Germaine Aleman, W Community Health Worker Primary Care - CC 02/18/24 Joya Lira [facility] [address] [place], [place] [phone] Pharmacist Pharmacist 05/25/24 Joya Lira [facility] [address] [place] [address] Assigned MTM Pharmacist 06/08/24 Fabi Coates MD 420 [facility] 75 [place], [place] 883405 Genetics, Clinical 06/18/24 Danna Cardenas PA-C 6405 [place] [address] Assigned Heart and Vascular Provider 07/08/24 Arthur Salas [facility] [address] [place] [address] Assigned Behavioral Health Provider 08/08/24 Randy Maradiaga DO 909 [place] [address] Assigned Neuroscience Provider 08/08/24 documented as of this encounter
--- OUTSIDE RECORDS SUMMARY | 2024-11-05 13:09 | XMS_ITS | Encounter Summary ---
Author Organization [place] Address [address] [place] [address] Care Team Providers Care Crop Insurance Claims Adjuster Name Role Phone Winston Villatoro OD Unavailable [phone] Denise Woodson APRN AUTOMOTIVE POWER ELECTRONICS ENGINEER Unavailable [phone] Denise Woodson APRN AUTOMOTIVE POWER ELECTRONICS ENGINEER Primary Care Provider Usha Simon APRN AUTOMOTIVE POWER ELECTRONICS ENGINEER Unavailable + [phone] Dangelo Salinas MD Unavailable Anastasia Stearns RN Unavailable Germaine Aleman [facility] Unavailable Joya Lira [facility] Unavailable Joya Lira [facility] Unavailable Fabi Coates MD Unavailable [phone] Danna CardenasC Unavailable [phone] Arthur Salas GEOPHYSICAL OPERATOR Unavailable [phone] Randy Maradiaga DO Unavailable + Encounter Details Date Type Department Care Team (Late st Contact Info) Description 09/22/2024 [facility] Heart [facility] [address] [facility] [address] [place] [address] Danna Cardenas PA-C [address] [place] [address] Social History Tobacco Use Types Packs/Day Years [...] Never 09/16/2024 How often do you attend mormon or synagogue serv ices? 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 Danna Cardenas PA-C [facility] Heart Team 220 minutes ago (2:08 PM) Okay to change visit to a video visit. Thanks! Patient/scheduling messaged. ING PRESS OPERATOR * Telephone Encounter - Telma Guajardo RN - 09/22/2024 12:51 PM STAKING PRESS OPERATOR Images from the original note were not included. My chart message from patient: Alcon Zamora [facility] Heart Team 2 Hi, can l switch my 10/09 in person visit to virtual? Thank you CTA angiogram completed in 08/07/2024 - preliminary update sent. Final results to be discussed at next visit. Will message MONICA Danna Ronald to review request ING PRESS OPERATOR documented in this encounter Plan of Treatment Upcoming Encounters Date Type Department Care Team (Late st Contact Info) Description 11/06/2024 12:00 PM STAKING PRESS OPERATOR Virtual Visit [facility] [address] [place] [phone] Denise Woodson APRN [facility] [address] [place], [place] [phone] 12/01/2024 4:00 PM CDT Virtual Visit [facility] Vascular [facility] [address] [place] [phone] Lisa Zambrano MD [address] [place] [address] 12/03/2024 7:00 AM CDT Virtual Visit [facility] Neurology Clinic [address]rd [place] [phone] Randy Maradiaga DO [address] [place] [address] 633415 12/09/2024 12:45 PM CDT Office Visit [facility] Pediatric Specialty Clinic [address] [place] [address],[place] [phone] Tete Wang MD [address] [place] [address] 726124 12/09/2024 1:15 PM CDT Office Visit [facility]ty [facility] [address] [place] [address],[place] [phone] Tete Wang MD [address] [place] [address] [phone] 12/15/2024 3:00 PM CDT Virtual Visit [facility] [address] [place] [phone] Denise Woodson APRN [facility] [address] [place] [address] 01/19/2025 PRE VISIT [facility] Lung Science [address] [address] Any Joiner MD [address] [place] [address] *-*INCOMING RECORDS*-* 01/19/2025 3:00 PM CDT Orders Only [facility] Pulmonary Function Testing [address] 3rd [place] [address] 01/19/2025 4:00 PM CDT Office Visit [facility] Lung Science [address] [phone] Any Joiner MD [address] [place] [address] 06/01/2025 11:15 AM CDT Appointment [facility] Care Center Imaging [address] [place] [phone] Robin Zepeda MD [address] [place] [address] 06/04/2025 11:00 AM CDT Office Visit [facility] Neurosurgery Clinic [address] 3rd [place] [phone] Robin Zepeda MD [address] [place] [address] Usha Simon APRN AUTOMOTIVE POWER ELECTRONICS ENGINEER [address] [place] [address] documented as of this encounter Visit Diagnoses Not on filedocumented in this encounter Additional Health Concerns Assessment Noted Time PHQ-9 Depression Total Score: 0 09/18/19 25 12:46 PM STAKING PRESS OPERATOR documented as of this encounter Care Teams Crop Insurance Claims Adjuster Relationship Specialty Start Date End Date Winston Villatoro OD [facility] [place] [address] [facility] [address] [place] [address] PCP - Ophthalmology Ophthalmology 02/11/13 Denise Woodson APRN AUTOMOTIVE POWER ELECTRONICS ENGINEER [address] [place] [address] PCP - General Family Practice 09/21/20 Denise Woodson APRN AUTOMOTIVE POWER ELECTRONICS ENGINEER [address] [place] [id number] Assigned PCP 07/17/20 Usha Simon APRN AUTOMOTIVE POWER ELECTRONICS ENGINEER [address] [facility] [id number] [address] Nurse Practitioner Neurological Surgery 01/24/24 Dangelo Salinas MD [address] [place] [address] Neurology 01/27/24 Anastasia Stearns, RN Lead Economic Specialist 02/06/24 Germaine Aleman, W Community Health Worker Primary Care - CC 02/18/24 Joya Lira [facility] [address] [place], [place] [phone] Pharmacist Pharmacist 05/25/24 Joya Lira [facility] [address] [place], [place] [phone] Assigned MTM Pharmacist 06/08/24 Fabi Coates MD [address] [place] [address] 75 [place] [address] Genetics, Clinical 06/18/24 Danna Cardenas PA-C 6405 [place] [address] Assigned Heart and Vascular Provider 07/08/24 Arthur Salas [facility] [address] [place] [address] Assigned Behavioral Health Provider 08/08/24 Randy Maradiaga DO [address] [place] [address] Assigned Neuroscience Provider 08/08/24 documented as of this encounter
--- OUTSIDE RECORDS SUMMARY | 2024-11-05 13:09 | XMS_ITS | Encounter Summary ---
Author Organization [place] Address [address] [place] [address] Care Team Providers Care Surgical Appliance Fitter Name Role Phone Yung Madrigal MD Unavailable Unavailable Winston Villatoro OD Unavailable [phone] Denise Woodson APRN RUBBER THREAD SPOOLER Unavailable [phone] Denise Woosdon APRN RUBBER THREAD SPOOLER Primary Care Provider Usha Simon APRN RUBBER THREAD SPOOLER Unavailable [phone] Dangelo Salinas MD Unavailable Usha Simon APRN RUBBER THREAD SPOOLER Unavailable Anastasia Stearns RN Unavailable Germaine Aleman [facility] Unavailable Robin Zepeda MD Unavailable Lisa Zambrano MD Unavailable Raul Hoyos MD Unavailable Joya Lira [facility] Unavailable Joya Lira Joleen Unavailable Fabi Coates MD Unavailable [phone] Robin Zepeda MD Unavailable Danna Cardenas PA-C Unavailable [phone] Felicita Desai RN Unavailable Unavailab Arthur Rios Unavailable [phone] Randy Maradiaga DO Unavailable + Tete Wang MD Unavailable [phone] Encounter Details Date Type Department Care Team (Late Contact Info) Description 01/10/[address] 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 [address] [place] [phone] Denise Woodson APRN [facility] [address] [place], [place] [address]68 12/01/2024 4:00 PM CDT Virtual Visit [facility] Vascular Clinic [place] [address] [place] [phone] Lisa Zambrano MD [address] [place] [address] 12/03/2024 7:00 AM CDT Virtual Visit [facility] Neurology Clinic [address] [phone] Randy Maradiaga DO [address] [place] [address] 371475 12/09/2024 12:45 PM CDT Office Visit [facility] Pediatric Specialty Clinic [address] [place] [phone] Tete Wang MD [address] [place] [address] 730684 12/09/2024 1:15 PM CDT Office Visit [facility]ty [facility] [address] [place] [phone] Tete Wang MD [address] [place] [address] 12/15/2024 3:00 PM CDT Virtual Visit [facility] [address] [place] [address] Denise Woodson APRN [facility] [address] [place], [place] 3339968 01/19/2025 PRE VISIT [facility] [address] [phone] Any Joiner MD [address] [place] [address] *-*INCOMING RECORDS*-* 01/19/2025 3:00 PM CDT Orders Only [facility] Pulmonary Function Testing [address]rd [place] [address] 01/19/2025 4:00 PM CDT Office Visit [facility] [place] 9[address] [place] [phone] Any Joiner MD [address] [facility] [address] [place] [address] 06/01/2025 11:15 AM CDT Appointment [facility] Center Imaging [address] [place] [phone] Robin Zepeda MD [address] [place] [address] 466515 06/04/2025 11:00 AM CDT Office Visit [facility] Neurosurgery Clinic [address] 3rd [place] [phone] Robin Zepeda MD [address] [place] [address] 420275 Usha Simon APRN [address] [id number] documented as of this encounter Visit Diagnoses Not on filedocumented in this encounter Additional Health Concerns Infection Onset Date Last Indicated Resolved Time Rule Out COVID-19 09/13/2024 09/13/2024 09/13/2024 12:31 PM SCRAP HANDLER Assessment Noted Time PHQ-9 Depression Total Score: 0 06/23/20 21 4:11 PM CDT documented as of this encounter Care Teams Surgical Appliance Fitter Relationship Specialty Start Date End Date Yung Madrigal MD RETIRED PCP - Orthopaedics Orthopedics 08/26/12 01/20/24 Winston Villatoro OD [facility] [place] [address] [place] [address] [address] [place] [address] PCP - Ophthalmology Ophthalmology 02/11/13 Denise oWodson APRN RUBBER THREAD SPOOLER [address] [place] [address] PCP - General Family Practice 09/21/20 Denise Woodson APRN RUBBER THREAD SPOOLER [address] [place] [address] Assigned PCP 07/17/20 Usha Simon APRN RUBBER THREAD SPOOLER [address] 464785 Nurse Practitioner Neurological Surgery 01/24/24 Dangelo Salinas MD [address] [facility] [address] [place], [place] [phone] Neurology 01/27/24 Usha Simon APRN RUBBER THREAD SPOOLER [address] [phone] Assigned Neuroscience Provider 02/06/24 03/07/24 Anastasia Stearns, RN Lead Hospitality Specialist 02/06/24 Germaine Aleman, W Community Health Worker Primary Care - CC 02/18/24 Robin Zepeda MD [address] [phone] Assigned Neuroscience Provider 03/08/24 05/07/24 Lisa Zambrano MD [address] [place] [address] Assigned Heart and Vascular Provider 05/08/24 07/07/24 Raul Hoyos MD 909 [facility]121CJ [place] [address] Assigned Neuroscience Provider 05/08/24 07/07/24 Joya Lira [facility] [address] [place] [address] Pharmacist Pharmacist 05/25/24 Joya Lira Joleen [address] [place] [address] Assigned MTM Pharmacist 06/08/24 Fabi Coates MD [address] [place] [address] 75 [place] [address] Genetics, Clinical 06/18/24 Robin Zepeda MD [address] [place] 9[address]7021[address] [place] [address] Assigned Neuroscience Provider 07/08/24 08/07/24 Danna Cardenas PA-C 6405 [place] [address] Assigned Heart and Vascular Provider 07/08/24 Felicita Desai, RN Lead Hospitality Specialist 07/14/24 07/28/24 Arthur Salas [facility] [address] [place] [address] Assigned Behavioral Health Provider 08/08/24 Randy Maradiaga DO 909 [place], [place] 965885 Assigned Neuroscience Provider 08/08/24 Tete Wang MD 2450 [place], [place] 275894 Genetics, Clinical 10/30/24 documented as of this encounter
--- OUTSIDE RECORDS SUMMARY | 2024-11-05 13:09 | XMS_ITS | Encounter Summary ---
Author Organization [place] Address [address] [place] [address] Care Team Providers Care Keel Press Operator Name Role Phone Winston Villatoro OD Unavailable [phone] Denise Woodson APRN NUCLEAR SPECTROSCOPIST Unavailable [phone] Deinse Woodson APRN NUCLEAR SPECTROSCOPIST Primary Care Provider Usha Simon APRN NUCLEAR SPECTROSCOPIST Unavailable + [phone] Dangelo Salinas MD Unavailable Anastasia Steanrs RN Unavailable Germaine Aleman [facility] Unavailable [phone] Joya Lira [facility] Unavailable [phone] Joya Lira [facility] Unavailable [phone] Fabi Coates MD Unavailable [phone] Robin Zepeda MD Unavailable [phone] Danna Cardenas PA-C Unavailable [phone] Felicita Desai RN Unavailable Unavailab Arthur RiosSW Unavailable [phone] Randy Maradiaga DO Unavailable + Tete Wang MD Unavailable [phone] Encounter Details Date Type Department Care Team (Late st Contact Info) Description 07/16/2024 MyC Medical Advice [facility] Mental Health and Addiction Clinic [place] [address] [place] [address] OlayinkaArthur forbes [facility] [address] [place] [address] Social History Tobacco Use Types Packs/Day Years [...] How often do you attend voodoo or sikh serv ices? Never 02/28/2024 Do [...] 4 07/16/2024 [facility] [place] of Occupat ional Health - Occupational Stress [...] on file Legal Sex Female 4:05 AM ENGINE MANAGER Gender Identity Not on file Sexual [...] st Contact Info) Description 11/06/2024 12:00 PM ENGINE MANAGER [facility] [address] [place] [phone] Denise Woodson APRN NUCLEAR SPECTROSCOPIST [address] [place], [place] [phone] 12/01/2024 4:00 PM CDT Virtual Visit [facility] Vascular Clinic [place] [address] [place] [phone] Lisa Zambrano MD [address] [place] 643805 12/03/2024 7:00 AM CDT Virtual Visit [facility] Neurology [address] [phone] Randy Maradiaga, [address] [address] 12/09/2024 12:45 PM CDT Office Visit [facility] [address] [place] [phone] Tete Wang MD [address] [place] [address] 12/09/2024 1:15 PM CDT Office Visit [facility] [address] [place] [address] [phone] Tete Wang MD [address] [place] [address] 12/15/2024 3:00 PM CDT Virtual Visit [facility] [address] [place] [phone] Denise Woodson APRN NUCLEAR SPECTROSCOPIST [address] [place] [address] 01/19/2025 PRE VISIT [facility] Lung Science [address] [phone] Any Joiner MD [address] [place] [address] *-*INCOMING RECORDS*-* 01/19/2025 3:00 PM CDT Orders Only [facility] Pulmonary Function Testing [address] [phone] 01/19/2025 4:00 PM CDT Office Visit [facility] Lung Science [address] [phone] Any Joiner MD [address] [place] [address] 92[address] 06/01/2025 11:15 AM CDT Appointment [facility] Imaging [address] [facility] [address] [place] [phone] Roibn Zepeda MD [address] [place] [address] 363705 06/04/2025 11:00 AM CDT Office Visit [address] [phone] Robin Zepeda MD [address] [place] [address] 208945 Usha Simon APRN NUCLEAR SPECTROSCOPIST [address] [place] [address] documented as of this encounter Visit Diagnoses Not on filedocumented in this encounter Additional Health Concerns Infection Onset Date Last Indicated Resolved Time Rule Out COVID-19 09/13/2024 09/13/2024 09/13/2024 12:31 PM ENGINE MANAGER Assessment Noted Time PHQ-9 Depression Total Score: 14 024 11:46 AM CDT documented as of this encounter Care Teams Keel Press Operator Relationship Specialty Start Date End Date Winston Villatoro OD [facility] [place] [address] [place] [address] PCP - Ophthalmology Ophthalmology 02/11/13 Denise Woodson APRN NUCLEAR SPECTROSCOPIST [address] [place] [address] PCP - General Family Practice 09/21/20 Denise Woodson APRN NUCLEAR SPECTROSCOPIST [address] [facility] [place] [address] Assigned PCP 07/17/20 Usha Simon APRN NUCLEAR SPECTROSCOPIST 909 [facility]2121[place], [place] [address] Nurse Practitioner Neurological Surgery 01/24/24 Dangelo Salinas MD [address] [place] [address] Neurology 01/27/24 Anastasia Stearns, RN Lead Hand Spring Former 02/06/24 Germaine Aleman, CHW Community Health Worker Primary Care - CC 02/18/24 Joya Lira [facility] [address] [place] [address] Pharmacist Pharmacist 05/25/24 Joya Lira [facility] [address] [place] [address] Assigned MTM Pharmacist 06/08/24 Fabi Coates MD [address] [place] [address] 75 [place] [address] Genetics, Clinical 06/18/24 Robin Zepeda MD 909 [facility]121[place] [place] [address] Assigned Neuroscience Provider 07/08/24 08/07/24 Danna Cardenas PA-C 6405 [place] [address] Assigned Heart and Vascular Provider 07/08/24 Felicita Desai, RN Lead Hand Spring Former 07/14/24 07/28/24 Arthur Salas, [facility] [address] [place] [address] Assigned Behavioral Health Provider 08/08/24 Randy Maradiaga DO 909 [place], [place] 735295 Assigned Neuroscience Provider 08/08/24 Tete Wang MD 2450 [place] [address] Genetics, Clinical 10/30/24 documented as of this encounter
--- OUTSIDE RECORDS SUMMARY | 2024-11-05 13:09 | XMS_ITS | Encounter Summary ---
Author Organization [place] Address [address] [place] [address] Care Team Providers Care Green End Worker Name Role Phone Winston Villatoro OD Unavailable [phone] Denise Woodson APRN VACUUM REPAIRER Unavailable [phone] Denise Woodson APRN VACUUM REPAIRER Primary Care Provider Usha Simon APRN VACUUM REPAIRER Unavailable + [phone] Dangelo Salinas MD Unavailable Anastasia Stearns RN Unavailable Germaine Aleman [facility] Unavailable [phone] Joya Lira [facility] Unavailable Joya Lira [facility] Unavailable [phone] Fabi Coates MD Unavailable [phone] Danna Cardenas PA-C Unavailable [phone] Arthur Salas [facility]GETABLE BUNCHER Unavailable [phone] Randy Maradiaga DO Unavailable + Tete Wang MD Unavailable [phone] Encounter Details Date Type Department Care Team (Late st Contact Info) Description 10/05/2024 Ajay Calhoun [facility] [address] [place] [phone] Ash Germaine C, [facility] Social History Tobacco Use Types Packs/Day Years [...] Never 09/16/2024 How often do you attend synagogue or orthodoxy serv ices? Never 09/16/2024 Do [...] Answer Date Recorded PHQ-2 Score 0 09/29/2024 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 [place] [phone] Lisa Zambrano MD [address] [place] [id number] 12/03/2024 7:00 AM CDT Virtual Visit [facility] Neurology [address] [phone] Randy Maradiaga, [address] [address] 12/09/2024 12:45 PM CDT Office Visit [facility] [address] [place] [address] [phone] Tete Wang MD [address] [place] [address] 12/09/2024 1:15 PM CDT Office Visit [facility] [address] [place] [address] [phone] Tete Wang MD [address] [place] [address] 12/15/2024 3:00 PM CDT Virtual Visit [facility] [address] [place] [phone] Denise Woodson APRN [facility] [address] [place], [place] 1416[address] 01/19/2025 PRE VISIT [facility] Lung Science [address] [phone] Any Joiner MD [address] [place] [address] *-*INCOMING RECORDS*-* 01/19/2025 3:00 PM CDT Orders Only [facility] Pulmonary Function Testing [address] [phone] 01/19/2025 4:00 PM CDT Office Visit [address] [phone] Any Joiner MD [address] [place] [address] 702485 06/01/2025 11:15 AM CDT Appointment [facility] [address] [facility] [address] [place] [phone] Robin Zepeda MD [address] [place] [address] 000175 06/04/2025 11:00 AM CDT Office Visit [facility] Neurosurgery [address] [phone] Robin Zepeda MD [address] [place] [address] Usha Simon APRN [address] 667[address] documented as of this encounter Visit Diagnoses Not on filedocumented in this encounter Additional Health Concerns Assessment Noted Time PHQ-9 Depression Total Score: 0 09/18/19 25 12:46 PM TOW TRUCK DISPATCHER documented as of this encounter Care Teams Green End Worker Relationship Specialty Start Date End Date Winston Villatoro OD [facility] [place] [address] [place] [address] PCP - Ophthalmology Ophthalmology 02/11/13 Denise Woodson APRN VACUUM REPAIRER [address] [place] [address] PCP - General Family Practice 09/21/20 Denise Woodson APRN VACUUM REPAIRER [address] [place] [address] Assigned PCP 07/17/20 Usha Simon APRN VACUUM REPAIRER 9 [facility] [address] Nurse Practitioner Neurological Surgery 01/24/24 Dangelo Salinas MD [address] [place], [place] [phone] Neurology 01/27/24 Anastasia Stearns, RN Lead Credit Verifier 02/06/24 Germaine Aleman, W Community Health Worker Primary Care - CC 02/18/24 Joya Lira RPH [address] [place] [address] Pharmacist Pharmacist 05/25/24 Joya Lira RPH [address] [place] [address] Assigned MTM Pharmacist 06/08/24 Fabi Coates MD 420 [facility] 75 [place] [address] Genetics, Clinical 06/18/24 Danna Cardenas PA-C 6405 [place] [address] Assigned Heart and Vascular Provider 07/08/24 Arthur Salas [facility] [address] [place] [address] Assigned Behavioral Health Provider 08/08/24 Randy Maradiaga DO 909 [place], [place] 241715 Assigned Neuroscience Provider 08/08/24 Tete Wang MD [address] [place], [place] [phone] Genetics, Clinical 10/30/24 documented as of this encounter
--- OUTSIDE RECORDS SUMMARY | 2024-11-05 13:09 | XMS_ITS | Encounter Summary ---
Author Organization [place] Address [address] [place] [address] Care Team Providers Care Health Information Director Name Role Phone Winston Villatoro OD Unavailable [phone] Denise Woodson APRN SHOE HANDLER Unavailable [phone] Denise Woodson APRN SHOE HANDLER Primary Care Provider Usha Simon APRN SHOE HANDLER Unavailable + [phone] Daneglo Salinas MD Unavailable Anastasia Stearns RN Unavailable Germaine Aleman CH Unavailable [phone] Robin Zepeda MD Unavailable Lisa Zambrano MD Unavailable Raul Hoyos MD Unavailable Joya Lira RP Unavailable [phone] Joya Lira RPJoleen Unavailable Fabi Coates MD Unavailable [phone] Robin Zepeda MD Unavailable Danna CardenasC Unavailable [phone] Felicita Desai RN Unavailable Unavailab Arthur Rios Unavailable [phone] Randy Maradiaga DO Unavailable + Tete Wang MD Unavailable [phone] Reason for Visit * Reason Onset Date Comments Call Back 03/09/2024 Follow up appoin tment Encounter Details Date Type Department Care Team (Late st Contact Info) Description 03/09/2024 Telephone [facility] Neurology Clinic [address] 3rd [place] [address] Raul Hoyos MD [address] [place] [address] [id number] [place] [address] Call Back (Follow up appointment [...] How often do you attend mosque or sabianist serv ices? 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 Germaine's call back #[phone] or she states may call patient to schedule if appropriate Action Taken: Message routed to: [facility] Neurology Travel Screening: Not Applicable documented in this encounter Plan of Treatment Upcoming Encounters Date Type Department Care Team (Late st Contact Info) Description 11/06/2024 12:00 PM BUNDLE HELPER Virtual Visit [facility] [address] [facility] [address] Denise Woodson APRN SHOE HANDLER [address] [place], [place] 01959[address] 12/01/2024 4:00 PM CDT Virtual Visit [facility] Vascular Clinic [place] [address] [place] [phone] Lisa Zambrano MD [address] [place] [address] 12/03/2024 7:00 AM CDT Virtual Visit [facility] Neurology Clinic [address] [phone] Randy Maradiaga DO [address] [place] [address] 12/09/2024 12:45 PM CDT Office Visit [facility] Pediatric Specialty Clinic [address] [place] [phone] Tete Wang MD [address] [place] [address] 892994 12/09/2024 1:15 PM CDT Office Visit [facility] Pediatric Specialty Clinic [address] [place] [phone] Tete Wang MD [address] [place] [address] [id number] 12/15/2024 3:00 PM CDT Virtual Visit [facility] [address] [place] [address] Denise Woodson APRN [facility] [address] [place] [address] 01/19/2025 PRE VISIT [facility] [place] [address] [place] [address] Any Joiner MD [address] [place] [address] 732275 *-*INCOMING RECORDS*-* 01/19/2025 3:00 PM CDT Orders Only [facility] Pulmonary Function Testing [address] 3rd [place] [phone] 01/19/2025 4:00 PM CDT Office Visit [facility] [address] [phone] Any Joiner MD 420 [facility] 276 [place], [place] 368625 06/01/2025 11:15 AM CDT Appointment [facility] Imaging [address] [place] [address] [place] [address] Robin Zepeda MD [address] [place] [address] 146765 06/04/2025 11:00 AM CDT Office Visit [facility] Neurosurgery Clinic [address] [phone] Robin Zepeda MD [address] [place] [address] 744925 Usha Simon APRN [address] [phone] documented as of this encounter Visit Diagnoses Not on filedocumented in this encounter Additional Health Concerns Infection Onset Date Last Indicated Resolved Time Rule Out COVID-19 09/13/2024 09/13/2024 09/13/2024 12:31 PM BUNDLE HELPER Assessment Noted Time PHQ-9 Depression Total Score: 16 024 3:27 PM CDT documented as of this encounter Care Teams Health Information Director Relationship Specialty Start Date End Date Winston Villatoro OD [facility] [address] [place] [address] PCP - Ophthalmology Ophthalmology 02/11/13 Denise Woodson APRN SHOE HANDLER [address] [place] [id number] PCP - General Family Practice 09/21/20 Denise Woodson APRN SHOE HANDLER [address] [place] [address] Assigned PCP 07/17/20 Usha Simon APRN SHOE HANDLER [address] [place] [address] [phone] Nurse Practitioner Neurological Surgery 01/24/24 Dangelo Salinas MD [address] [place], [place] [phone] Neurology 01/27/24 Anastasia Stearns, RN Lead Grill Prep Cook 02/06/24 Germaine Aleman, W Community Health Worker Primary Care - CC 02/18/24 Robin Zepeda MD [address] 335495 Assigned Neuroscience Provider 03/08/24 05/07/24 Lisa Zambrano MD [address] [place] 361835 Assigned Heart and Vascular Provider 05/08/24 07/07/24 Raul Hoyos MD [address] [place] [address] [phone] Assigned Neuroscience Provider 05/08/24 07/07/24 Joya Lira [facility] [address] [place] [address] Pharmacist Pharmacist 05/25/24 Joya Lira [facility] [address] [place], [place] [address] Assigned MTM Pharmacist 06/08/24 Fabi Coates MD [address] [place] [address] 75 [place] [address] Genetics, Clinical 06/18/24 Robin Zepeda MD [address] [place], [place] [address] [place] [address] Assigned Neuroscience Provider 07/08/24 08/07/24 Danna Cardenas PA-C [address] [place] [address] Assigned Heart and Vascular Provider 07/08/24 Felicita Desai RN Lead Grill Prep Cook 07/14/24 07/28/24 Arthur Salas, [facility] [address] [place] [address] Assigned Behavioral Health Provider 08/08/24 Randy Maradiaga DO [address] [place] [address] Assigned Neuroscience Provider 08/08/24 Tete Wang MD [address] [place] [address], [place] [address] Genetics, Clinical 10/30/24 documented as of this encounter
--- OUTSIDE RECORDS SUMMARY | 2024-11-05 13:10 | XMS_ITS | Encounter Summary ---
Author Organization [place] Address [address] [place] [address] Care Team Providers Care Armoured Corps Officer Name Role Phone Winston Villatoro OD Unavailable [phone] Denise Woodson APRN BLINTZE ROLLER Unavailable [phone] Denise Woodson APRN BLINTZE ROLLER Primary Care Provider Usha Simon APRN BLINTZE ROLLER Unavailable + [phone] Dangelo Salinas MD Unavailable Anastasia Stearns RN Unavailable Germaine Aleman [facility] Unavailable [phone] Lisa Zambrano MD Unavailable + [phone] Raul Hoyos MD Unavailable Joya Lira [facility] Unavailable [phone] Joya Lira [facility] Unavailable [phone] Fabi Coates MD Unavailable [phone] Robin Zepeda MD Unavailable [phone] Danna Cardenas PA-C Unavailable [phone] Felicita Desai RN Unavailable Unavailab Arthur Rios Unavailable [phone] Randy Maradiaga DO Unavailable + Tete Wang MD Unavailable Encounter Details Date Type Department Care Team (Late st Contact Info) Description 05/15/2024 Ajay Medical Advice [facility] Neurology Clinic [address] [place] [phone] Stacey Kelley, RN Social History Tobacco Use [...] How often do you attend jewish or jehovah's witness serv ices? 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 [place] [phone] Lisa Zambrano MD [address] [place] 57[address]45 12/03/2024 7:00 AM CDT Virtual Visit [facility] Neurology [address] [phone] Randy Maradiaga, [address] [address] 12/09/2024 12:45 PM CDT Office Visit [facility] [address] [place] [address] [phone] Tete Wang MD [address] [place] [address] 504674 12/09/2024 1:15 PM CDT Office Visit [facility] [address] [place] [address] [phone] Ttee Wang MD [address] [place] [address] 126014 12/15/2024 3:00 PM CDT [facility] [address] [place] [phone] Denise Woodson APRN BLINTZE ROLLER [address] [place], [place] [phone] 01/19/2025 PRE VISIT [facility] Lung Science [address] [phone] Any Joiner MD [address] [place] [address]995 *-*INCOMING RECORDS*-* 01/19/2025 3:00 PM CDT Orders Only [facility] Pulmonary Function Testing [address] [phone] 01/19/2025 4:00 PM CDT Office Visit [facility] Lung Science [address] [phone] Any Joiner MD [address] [place] [address] 908315 06/01/2025 11:15 AM CDT Appointment [facility] [address] [facility] [address] [place] [phone] Robin Zepeda MD [address] [place] [address] 294935 06/04/2025 11:00 AM CDT Office Visit [address] [phone] Robin Zepeda MD [address] [place] [address] 446445 Usha Simon APRN BLINTZE ROLLER [address] [place] [address] documented as of this encounter Visit Diagnoses Not on filedocumented in this encounter Additional Health Concerns Infection Onset Date Last Indicated Resolved Time Rule Out COVID-19 09/13/2024 09/13/2024 09/13/2024 12:31 PM DIRECTOR OF COMMUNICATIONS Assessment Noted Time PHQ-9 Depression Total Score: 5 03/17/20 24 9:45 AM CDT documented as of this encounter Care Teams Armoured Corps Officer Relationship Specialty Start Date End Date Winston Villatoro OD [facility] [place] [address] [place] [address] PCP - Ophthalmology Ophthalmology 02/11/13 Denise Woodson APRN BLINTZE ROLLER [address] [place] [address] PCP - General Family Practice 09/21/20 Denise Woodson APRN BLINTZE ROLLER [address] [place] [address] Assigned PCP 07/17/20 Usha Simon APRN BLINTZE ROLLER [address] [facility] [place] [id number] [place] [address] Nurse Practitioner Neurological Surgery 01/24/24 Dangelo Salinas MD [address] [place] [address] Neurology 01/27/24 Anastasia Stearns, RN Lead Retail Financial Analyst 02/06/24 Germaine Aleman, CHW Community Health Worker Primary Care - CC 02/18/24 Lisa Zambrano MD 6405 [facility] [address] [place] [address] Assigned Heart and Vascular Provider 05/08/24 07/07/24 Raul Hoyos MD 909 [facility], [place] [address] Assigned Neuroscience Provider 05/08/24 07/07/24 Joya Lira [facility] [address] [place] [address] Pharmacist Pharmacist 05/25/24 Joya Lira [facility] [address] [place] [address] Assigned MTM Pharmacist 06/08/24 Fabi Coates MD 420 [facility] 75 [place], [place] 4240[address] Genetics, Clinical 06/18/24 Robin Zepeda MD 909 [facility] [place] [address] Assigned Neuroscience Provider 07/08/24 08/07/24 Danna Cardenas PA-C 6405 [place] [address] Assigned Heart and Vascular Provider 07/08/24 Felicita Desai, RN Lead Retail Financial Analyst 07/14/24 07/28/24 Arthur Salas [facility] [address] [place] [address] Assigned Behavioral Health Provider 08/08/24 Randy Maradiaga DO 909 [place] [address] Assigned Neuroscience Provider 08/08/24 Tete Wang MD 2450 [place] [address] Genetics, Clinical 10/30/24 documented as of this encounter
--- OUTSIDE RECORDS SUMMARY | 2024-11-05 13:10 | XMS_ITS | Encounter Summary ---
Author Organization [facility] Address [address] [place] [address] Care Team Providers Care Ward Nurse Name Role Phone Winston Villatoro OD Unavailable [phone] Denise Woodson APRN P 3 ARMAMENT/ORDNANCE IMA TECHNICIAN Unavailable [phone] Denise Woodson APRN [facility] Primary Care Provider Usha Simon APRN [facility] Unavailable + [phone] Dangelo Salinas MD Unavailable Anastasia Stearns RN Unavailable +[phone] Germaine Aleman [facility] Unavailable [phone] Joya Lira [facility] Unavailable [phone] Joya Lira [facility] Unavailable [phone] Fabi Coates MD Unavailable [phone] Danna Cardenas PA-C Unavailable [phone] Arthur Salas NURSE SEXUAL ASSAULT Unavailable [phone] Randy Maradiaga DO Unavailable + Reason for Visit * Reason Comments Follow Up Results CTA, Zio, EKG, CXR, Angio * Consultation (Routine) - Pending Review Specialty Diagnoses / Procedures Referred By Contac t Referred To Contact Cardiovascular Disease Diagnoses Chest pain, unspecified type Tachycardia Danna Cardenas PA-C [address] [place] [address] Phone: tel: fax: Referral ID Status Reason Start Date Expiration Date V isits Requested Visits Authorized [id number] Pending Review 06/26/2024 06/26/2025 1 1 Encounter Details Date Type Department Care Team (Late st Contact Info) Description 10/09/2024 1:20 PM KING MAKER [facility] [address] [facility] [address] [place] [phone] Danna Cardenas PA-C [address] [facility] [place] [address] Chest pain, unspecified type; Tachycardia Social History Tobacco Use Types Packs/Day [...] Never 09/16/2024 How often do you attend rastafarian or sabianism serv ices? 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 How would you like to obtain your AVS? MyChart If the video visit is dropped, the invitation should be resent by: Send to e- mail at: [email or web address] Will anyone else be joining your video visit? No Video-Visit Details Type of service: Video Visit Originating Location (pt. Location): Home Distant Location (provider location): On-site Platform used for Video Visit: [employer] +++Patient does not take BP at home+++ Vitals - Patient Reported Weight (Patient Reported): 95.3 kg (210 lb) Height (Patient Reported): 174 cm (5' 8.5) BMI (Based on Pt Reported Ht/Wt): 31.47 Review Of Systems Respiratory: NEGATIVE Cardiovascular:NEGATIVE Telephone number of patient: [phone] PatriceMg MAKER * Danna Cardenas PA-C - 10/09/2024 1:20 PM CST Images from the original note were not included. Cardiology Virtual Visit Progress Note Service Date: October 09, 2024 Primary Daycare Director: Dr. Zurita Reason for visit: 3 month follow up Ms. Alcon Zamora is a 49 year old female who is being evaluated via a billable video visit visit. Patient has given verbal consent for virtual visit? Yes Assessment and Plan: Chest discomfort, resolved Negative lexiscan stress test 04/2024 CT coronary angiogram 07/2024- normal coronary anatomy with no stenosis or plaque Most recent LDL- 107 Elevated heart rate and dizziness with exertion, stable Zio 06/2024- without any arrhythmias or significance, average heart rate 75 bpm Improved with compression stockings, abd binder, adequate hydration and acupuncture Cerebral angiogram in December 2023 complicated by postprocedure CVAs Follows with neurology ASD closure in 2005 Plan: - Reviewed Zio monitor and CT coronary angiogram results. All questions answered. - Okay to discharge from cardiology clinic and follow up with PCP for further medical management Follow up with cardiology as needed Danna Cardenas PA-C Physician Coal Sample Tester [facility] History of Presenting Illness: Alcon Zamora is a very pleasant 49 year old female with a history of ASD closure in 2005 and a cerebral angiogram in December 2023 complicated by postprocedure CVAs. In brief, I had the pleasure of meeting Ms. Zamora during her admission from 05/14-05/19/2024 for chestpain. EKG showed t wave inversion. Troponin and lexiscan were negative. A CT coronary angiogram in the outpatient setting was recommended if chest pain symptoms continued to persist. Of note, CTA chest in March 2024 demonstrated no significant coronary artery calcification. Echocardiogram in January 2024 had an LVEF of 55-60% with mild mitral regurgitation. Most recent office visit, patient was still experiencing chest discomfort. A CT coronary angiogram was ordered. Patient was also reporting episodes of an elevated heart rate and dizziness when she would exert herself. A Zio monitor was ordered to rule out any arrhythmias and to better understand her average heart rate. Zio monitor 06/2024 reported a min HR of 44 bpm, max HR of 158 bpm, and avg HR of 75 bpm. Predominant underlying rhythm was Sinus Rhythm. 1 run of Supraventricular Tachycardia occurred lasting 8 beats with a max rate of 158 bpm (avg 130 bpm). Patient triggered events correlated with NSR with or without PVC. CT coronary angiogram 07/2024 showed normal coronary anatomy with no stenosis or plaque. Patient reports she has had no more episodes of chest pain since last OV. She has less episodes of tachycardia and lightheadedness when exerting herself. She has been able to exercise on her treadmill for up to 15 minutes. She has not needed to use her abd binder and compression stockings to help with symptom management. She started acupuncture in July and believes this has helped with symptom improvement. Denies shortness of breath, orthopnea and PND. Denies chest pain, lightheadedness, dizziness, near syncope and syncope. Taking medications daily as prescribed. 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 Employer: [employer] Tobacco Use Smoking status: Never Passive exposure: [...] Social History Narrative Not on file Social Drivers of Health Financial Resource Strain: Low Risk (09/16/2024) Financial Resource Strain Within the past 12 months, have you or your family members you live with been unable to get utilities (heat, electricity) when it was really needed?: No Food Insecurity: Low Risk (09/16/2024) Food Insecurity Within the past 12 months, did you worry that your food would run out before you got money to buy more?: No Within the past 12 months, did the food you bought just not last and you didn???t have money to getmore?: No Transportation Needs: High Risk (09/16/2024) Transportation Needs Within the past 12 months, has lack of transportation kept you from medical appointments, getting your medicines, non-medical meetings or appointments, work, or from getting things that you need?: Yes Physical Activity: Inactive (09/16/2024) Exercise Vital Sign Days of Exercise per Week: 0 days Minutes of Exercise per Session: 0 min Stress: No Stress Concern Present (09/16/2024) Stateless [place] of Occupational Health - Occupational Stress Questionnaire Feeling of Stress : Not at all Social Connections: Socially Isolated (09/16/2024) Social Connection and Isolation Panel [NHANES] Frequency of Communication with Friends and Family: Once a week Frequency of Social Gatherings with Friends and Family: Never Attends Jain Services: Never Active Member of Clubs or [...] or ex-partner?: No Housing Stability: Low Risk (09/16/2024) Housing Stability Do you have housing? : Yes Are you worried about losing your housing?: No Review of Systems: Review of Systems: Skin: negative Eyes: negative Ears/Nose/Throat: negative Respiratory: No shortness of breath, dyspnea on exertion, cough, or hemoptysis Cardiovascular: negative and palpitations Gastrointestinal: negative Musculoskeletal: negative Neurologic: negative and stroke Psychiatric: negative Physical Exam: Patient Reported Vitals: BP: NA Pulse: NA Weight: NA PSYCH: Alert and oriented times 3; coherent speech, normal rate and volume, able to articulate logical thoughts, able to abstract reason, no tangential thoughts, no hallucinations or delusions. her affect is normal RESP: No cough, no audible wheezing, able to talk in full sentences Remainder of the comprehensive physical exam is unable to be completed due to today's visit being completed via telephone call. Data: LIPID RESULTS: Lab Results Component Value Date CHOL 217 (H) 07/13/2024 CHOL 238 (H) 07/27/2020 HDL 55 07/13/2024 HDL 61 07/27/2020 LDL 107 (H) 07/13/2024 LDL 150 (H) 07/27/2020 TRIG 275 (H) 07/13/2024 TRIG 136 07/27/2020 CHOLHDLRATIO 3.9 03/16/2008 LIVER ENZYME RESULTS: Lab Results Component Value Date AST 28 09/13/2024 AST 10 01/04/2021 ALT 27 09/13/2024 ALT 18 01/04/2021 CBC RESULTS: Lab Results Component Value Date WBC 13.5 (H) 09/18/2024 WBC 7.4 01/04/2021 RBC 4.81 09/18/2024 RBC 4.51 01/04/2021 HGB 14.6 09/18/2024 HGB 13.9 01/04/2021 HCT 43.6 09/18/2024 HCT 42.2 01/04/2021 MCV 91 09/18/2024 MCV 94 01/04/2021 MCH 30.4 09/18/2024 MCH 30.8 01/04/2021 MCHC 33.5 09/18/2024 MCHC 32.9 01/04/2021 RDW 12.4 09/18/2024 RDW 11.7 01/04/2021 PLT 279 09/18/2024 PLT 210 01/04/2021 BMP RESULTS: Lab Results Component Value Date NA 142 09/13/2024 NA 138 01/04/2021 POTASSIUM 4.6 09/13/2024 POTASSIUM 4.0 07/27/2021 POTASSIUM 4.3 01/04/2021 CHLORIDE 103 09/13/2024 CHLORIDE 105 07/27/2021 CHLORIDE 106 01/04/2021 CO2 29 09/13/2024 CO2 26 07/27/2021 CO2 31 01/04/2021 ANIONGAP 10 09/13/2024 ANIONGAP 8 07/27/2021 ANIONGAP 1 (L) 01/04/2021 GLC 105 (H) 09/13/2024 GLC 93 07/13/2024 GLC 95 07/27/2021 GLC 87 01/04/2021 BUN 14.5 09/13/2024 BUN 20 07/27/2021 BUN 13 01/04/2021 CR 0.82 09/13/2024 CR 0.77 01/04/2021 GFRESTIMATED 88 09/13/2024 GFRESTIMATED >60 02/04/2024 GFRESTIMATED >90 01/04/2021 GFRESTBLACK >90 01/04/2021 TIFF 10.1 09/13/2024 TIFF 8.7 01/04/2021 A1C RESULTS: Lab Results Component Value Date A1C 5.5 07/13/2024 INR RESULTS: Lab Results Component Value Date [...] of breath, wheezing or cough. 18 g 0 albuterol (PROAIR HFA/PROVENTIL HFA/VENTOLIN HFA) 108 (90 [...] mouth at bedtime. citalopram (CELEXA) 10 MG tablet Take 1 tablet (10 mg) by mouth daily. 90 tablet 0 fluticasone-vilanterol (BREO ELLIPTA) 200-25 MCG/ACT inhaler Inhale 1 puff into the lungs daily. 3 each 1 levETIRAcetam (KEPPRA) 750 MG tablet Take 1/2 of 750 mg tab BID 120 tablet 2 Lidocaine (LIDOCARE) 4 % Patch Place 1 [...] needed (pain) oxyCODONE (ROXICODONE) 5 MG tablet Take 0.5 tablets (2.5 mg) by mouth every 4 hours as needed for moderate to severe pain. 10 tablet 0 psyllium (METAMUCIL) 28.3 % packet Take 1 packet by mouth daily senna-docusate (SENOKOT-S/PERICOLACE) 8.6-50 MG tablet Take 2 tablets by mouth 2 times daily as needed for constipation (Patient taking differently: Take 1 tablet by mouth daily.) traZODone (DESYREL) 100 MG tablet Take 100 mg by mouth at bedtime. azithromycin (ZITHROMAX) 250 MG tablet Take 250 mg by mouth daily. (Patient not taking: Reported on10/09/2024) Past Medical History Past Medical History: Diagnosis [...] Past Surgical History: Procedure Laterality Date C YARDAGE CONTROL OPERATOR PROCEDURE DATE: vag del. C YARDAGE CONTROL OPERATOR PROCEDURE DATE: 2000 tubal ligation C YARDAGE CONTROL OPERATOR PROCEDURE DATE: 1994 D&C CARDIAC SURGERY 06/2006 heart defect repair CHOLECYSTECTOMY 2020 ESOPHAGOSCOPY, GASTROSCOPY, DUODENOSCOPY (EGD), COMBINED N/A 02/08/2021 Procedure: ESOPHAGOGASTRODUODENOSCOPY (EGD); Surgeon: Tuan Miller MD; Location: GI GENITOURINARY SURGERY 2022 GI SURGERY 09/2020 gallbladder removed HC KNEE SCOPE,MED/LAT MENISECTOMY 08/04/2013 LT HEART CATH, CLOSURE ATRIAL SEPTAL DEFECT 06/20/2006 amplatzer septal occluder- serial #[id number] RW YARDAGE CONTROL OPERATOR (ABSTRACTED) pneumonia several times SOFT TISSUE SURGERY 2010 Lipoma removal SURGICAL PATHOLOGY EXAM 02/2012 excision of lipoma on chest wall Z VAGINAL HYSTERECTOMY 01/30/2006 Family History Problem Relation Age of Onset [...] Molds & smuts, Morphine, Pollen extract, Bupropion, Doxycycline, and Erythromycin This note was completed in part using dictation via the MMIT voice recognition software. Some word and grammatical errors may occur and must be interpreted in the appropriate clinical context. If there are any questions pertaining to this issue, please contact me for further clarification. MAKER documented in this encounter Plan of Treatment Upcoming Encounters Date Type Department Care Team (Late st Contact Info) Description 11/06/2024 12:00 PM KING MAKER Virtual Visit [facility] [address] [place] [phone] Denise Woodson APRN [facility] [address] [place], [place] [phone] 12/01/2024 4:00 PM CDT Virtual Visit [facility] [place] [address] [place] [phone] Lisa Zambrano MD [address] [place] [address] 12/03/2024 7:00 AM CDT Virtual Visit [facility] [address] 3rd [place] [phone] Randy Maradiaga DO [address] [place] [address] 12/09/2024 12:45 PM CDT Office Visit [facility] [address] [place] [phone] Tete Wang MD [address] [place] [phone] 12/09/2024 1:15 PM CDT Office Visit [facility] [address] [place] [address] [phone] Tete Wang MD [address] [place] [phone] 12/15/2024 3:00 PM CDT Virtual Visit [facility] [address] [place] [phone] Denise Woodson APRN [facility] [address] [place], [place] [phone] 01/19/2025 PRE VISIT [facility] [address] [address] Any Joiner MD [address] [place] [address] *-*INCOMING RECORDS*-* 01/19/2025 3:00 PM CDT Orders Only [facility] Pul[facility] Function Testing [address] 3[address] [place] [address] 01/19/2025 4:00 PM CDT Office Visit [facility] [address] [phone] Any Joiner MD [address] [place] [address] 06/01/2025 11:15 AM CDT Appointment [facility] Imaging [address] [place] [address] Robin Zepeda MD [address] [place] [address] 06/04/2025 11:00 AM CDT Office Visit [facility] [address] 3rd [place] [phone] Robin Zepeda MD [address] [place] [address] Usha Simon APRN P 3 ARMAMENT/ORDNANCE IMA TECHNICIAN [address] [place] [address] documented as of this encounter Visit Diagnoses Diagnosis Chest pain, unspecified type Tachycardia Tachycardia, unspecified documented in this encounter Additional Health Concerns Assessment Noted Time PHQ-9 Depression Total Score: 0 09/18/19 25 12:46 PM KING MAKER documented as of this encounter Care Teams Ward Nurse Relationship Specialty Start Date End Date Winston Villatoro OD [facility] [address] [facility] [address] [place] [address] PCP - Ophthalmology Ophthalmology 02/11/13 Denise Woodson APRN P 3 ARMAMENT/ORDNANCE IMA TECHNICIAN [address] [place] [place] [address] PCP - General Family Practice 09/21/20 Denise Woodson APRN P 3 ARMAMENT/ORDNANCE IMA TECHNICIAN [address] [place] [place] [address] Assigned PCP 07/17/20 Usha Simon APRN P 3 ARMAMENT/ORDNANCE IMA TECHNICIAN [address] [facility] [id number] [place], [place] [address] Nurse Practitioner Neurological Surgery 01/24/24 Dangelo Salinas MD [address] [place] [address] Neurology 01/27/24 Anastasia Stearns, RN Lead National Account Representative 02/06/24 Germaine Aleman, W Community Health Worker Primary Care - CC 02/18/24 Joya Lira [facility] [address] [place], [place] [phone] Pharmacist Pharmacist 05/25/24 Joya Lira [facility] [address] [place], [place] [phone] Assigned MTM Pharmacist 06/08/24 Fabi Coates MD [address] [facility] 75 [place], [place] [address] Genetics, Clinical 06/18/24 Danna Cardenas PA-C 6405 [place] [address] Assigned Heart and Vascular Provider 07/08/24 Arthur Salas LICSW [address] [place] [address] Assigned Behavioral Health Provider 08/08/24 Randy Maradiaga DO 909 [place] [address] Assigned Neuroscience Provider 08/08/24 documented as of this encounter
--- OUTSIDE RECORDS SUMMARY | 2024-11-05 13:10 | XMS_ITS | Encounter Summary ---
Author Organization [facility] Address [address] [place] [address] Care Team Providers Care Fern Cutter Name Role Phone Winston Villatoro OD Unavailable [phone] Denise Woodson APRN WET PROCESS MILLER Unavailable [phone] Denise Woodson APRN WET PROCESS MILLER Primary Care Provider Usha Simon APRN WET PROCESS MILLER Unavailable Dangelo Salinas MD Unavailable Usha Simon APRN WET PROCESS MILLER Unavailable Anastasia Stearns RN Unavailable [phone] Germaine Aleman CH Unavailable [phone] Robin Zepeda MD Unavailable Lisa Zambrano MD Unavailable Raul Hoyos MD Unavailable [phone] Joya Lira RP Unavailable [phone] Joya Lira RPJoleen Unavailable [phone] Fabi Coates MD Unavailable [phone] Robin Zepeda MD Unavailable Danna Cardenas PA-C Unavailable [phone] Felicita Desai RN Unavailable Unavailab Arthur Rios [facility] Unavailable [phone] Randy Maradiaga DO Unavailable + Tete Wang MD Unavailable [phone] Encounter Details Date Type Department Care Team (Late st Contact Info) Description 01/27/2024 MyC Medical Advice [facility] [address] 3rd [place] [address] [facility] Social History Tobacco Use Types Packs/Day Years [...] on file Legal Sex Female 4:05 AM TAG STRINGER Gender Identity Not on file Sexual Orientation Not on file 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 Not on file Not on file Not on file Not on file Not on file Not on file documented as of this encounter Plan of Treatment Upcoming Encounters Date Type Department Care Team (Late st Contact Info) Description 11/06/2024 12:00 PM TAG STRINGER Virtual Visit [facility] [address] [place] [address] Denise Woodson APRN [facility] [address] [place], [place] [phone] 12/01/2024 4:00 PM CDT Virtual Visit [facility] [place] [address] [place] [phone] Lisa Zambrano MD [address] [place] [address] 12/03/2024 7:00 AM CDT Virtual Visit [facility] [address] [phone] Randy Maradiaga [address] [address] 12/09/2024 12:45 PM CDT Office Visit [facility] [address] [place] [phone] Tete Wang MD [address] [place] [phone] 12/09/2024 1:15 PM CDT Office Visit [facility] [address] [place] [phone] Tete Wang MD [address] [place] [address] 843534 12/15/2024 3:00 PM CDT Virtual Visit [facility] [address] [place] [phone] Denise Woodson APRN [facility] [id number] [place] [address] [phone] 01/19/2025 PRE VISIT [facility] [address] [phone] Any Joiner MD [address] [place] [address] *-*INCOMING RECORDS*-* 01/19/2025 3:00 PM CDT Orders Only [facility] Pulmonary Function Testing [address] [phone] 01/19/2025 4:00 PM CDT Office Visit [facility] [address] [address] Any Joiner MD 420 [facility] 276 [place] [address] 06/01/2025 11:15 AM CDT Appointment [facility] Imaging [address] [place] [phone] Robin Zepeda MD [address] [place] [address] 06/04/2025 11:00 AM CDT Office Visit [facility] Neurosurgery [address] 3rd [place] [phone] Robin Zepeda MD [address] [place] [address] Usha Simon APRN WET PROCESS MILLER [address] [place] [address] documented as of this encounter Visit Diagnoses Not on filedocumented in this encounter Additional Health Concerns Infection Onset Date Last Indicated Resolved Time Rule Out COVID-19 09/13/2024 09/13/2024 09/13/2024 12:31 PM TAG STRINGER Assessment Noted Time PHQ-9 Depression Total Score: 0 06/23/20 21 4:11 PM CDT documented as of this encounter Care Teams Fern Cutter Relationship Specialty Start Date End Date Winston Villatoro OD [facility] [place] [address] [place] [address] PCP - Ophthalmology Ophthalmology 02/11/13 Denise Woodson APRN WET PROCESS MILLER [address] [place] [address] PCP - General Family Practice 09/21/20 Denise Woodson APRN WET PROCESS MILLER [address] [place] [address] Assigned PCP 07/17/20 Usha Simon APRN WET PROCESS MILLER [address] 656245 Nurse Practitioner Neurological Surgery 01/24/24 Dangelo Salinas MD [address] [place], [place] [phone] Neurology 01/27/24 Usha Simon APRN WET PROCESS MILLER [address] 210985 Assigned Neuroscience Provider 02/06/24 03/07/24 Anastasia Stearns, RN Lead Gem Technician 02/06/24 Germaine Aleman, W Community Health Worker Primary Care - CC 02/18/24 Robin Zepeda MD [address] 964[address] Assigned Neuroscience Provider 03/08/24 05/07/24 Lisa Zambrano MD [address] [place] [address] Assigned Heart and Vascular Provider 05/08/24 07/07/24 Raul Hoyos MD [address]09 [facility] [place] [address] Assigned Neuroscience Provider 05/08/24 07/07/24 Joya Lira [facility] [address] [place] [address] Pharmacist Pharmacist 05/25/24 Joya Lira [facility] [address] [place], [place] [phone] Assigned MTM Pharmacist 06/08/24 Fabi oCates MD [address] [place] [address] 75 [place] [address] Genetics, Clinical 06/18/24 Robin Zepeda MD [address] [place], [place] [address] [place], [place] [address] Assigned Neuroscience Provider 07/08/24 08/07/24 Danna Cardenas PA-C [address] [place] [address] Assigned Heart and Vascular Provider 07/08/24 Felicita Desai RN Lead Gem Technician 07/14/24 07/28/24 Arthur Salas [facility] [address] [address] Assigned Behavioral Health Provider 08/08/24 Randy Maradiaga DO [address] [place] [address] Assigned Neuroscience Provider 08/08/24 Tete Wang MD [facility] [place] [address] Genetics, Clinical 10/30/24 documented as of this encounter
--- OUTSIDE RECORDS SUMMARY | 2024-11-05 13:10 | XMS_ITS | Encounter Summary ---
Author Organization [place] Address [address] [place] [address] Care Team Providers Care Round Corner Cutter Operator Name Role Phone Winston Villatoro OD Unavailable [phone] Denise Woodson APRN COCOA ROASTER Unavailable [phone] Denise Woodson APRN COCOA ROASTER Primary Care Provider Usha Simon APRN COCOA ROASTER Unavailable Dangelo Salinas MD Unavailable Anastasia Stearns RN Unavailable Germaine Aleman [facility] Unavailable Joya Lira [facility] Unavailable Joya Lira [facility] Unavailable [phone] Fabi Coates MD Unavailable [phone] Danna CardenasC Unavailable [phone] Arthur Salas STAVE BLOCK SPLITTER Unavailable [phone] Randy Maradiaga DO Unavailable + Encounter Details Date Type Department Care Team (Late st Contact Info) Description 09/30/2024 [facility] [address] [address] Any Joiner MD [address] [facility] [address] [place] [address] Bronchopulmonary dysplasia (H) (Primary Dx) Social History Tobacco Use [...] Never 09/16/2024 How often do you attend methodist or advent serv ices? 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 [place] [phone] Lisa Zambrano MD [address] [place] [address] 12/03/2024 7:00 AM CDT Virtual Visit [facility] Neurology [address] [phone] Randy Maradiaga, [address] [address] 12/09/2024 12:45 PM CDT Office Visit [facility] [address] [place] [address] [phone] Tete Wang MD [address] [place] [address] 12/09/2024 1:15 PM CDT Office Visit [facility] [address] [place] [address] [phone] Tete Wang MD [address] [place] [address] 12/15/2024 3:00 PM CDT Virtual Visit [facility] [address] [place] [phone] Denise Woodson APRN COCOA ROASTER [address] [place] [address] 01/19/2025 PRE VISIT [facility] [address] [phone] Any Joiner MD [address] [place] [address] 803015 *-*INCOMING RECORDS*-* 01/19/2025 3:00 PM CDT Orders Only [facility] Pulmonary Function Testing [address] [phone] 01/19/2025 4:00 PM CDT Office Visit [address] [phone] Any Joiner MD [address] [place] [address] 574705 06/01/2025 11:15 AM CDT Appointment [facility] [address] [facility] [address] [place] [address] Robin Zepeda MD [address] [place] [address] [phone] 06/04/2025 11:00 AM CDT Office Visit [address] [phone] Robin Zepeda MD [address] [place] [address] [phone] Usha Simon APRN COCOA ROASTER [address] [place] [address] [phone] Scheduled Orders Name Type Priority Associated Diagnoses Orde r Schedule Pulmonary function test PFT Routine Bronchopulmonary dysplasia (H) Expected: 01/19/2025, Expires: 03/29/2025 documented as of this encounter Visit Diagnoses Diagnosis Bronchopulmonary dysplasia (H)- Primary Chronic respiratory disease arising in the period documented in this encounter Additional Health Concerns Assessment Noted Time PHQ-9 Depression Total Score: 0 09/18/19 25 12:46 PM CONDENSER TESTER documented as of this encounter Care Teams Round Corner Cutter Operator Relationship Specialty Start Date End Date Winston VillatoroAMELIE [facility] [place] [address] [place] [address] PCP - Ophthalmology Ophthalmology 02/11/13 Denise Woodson APRN COCOA ROASTER [address] [place] [address] PCP - General Family Practice 09/21/20 Denise Woodson APRN COCOA ROASTER [address] [place] [address] Assigned PCP 07/17/20 Usha Simon APRN COCOA ROASTER 909 [facility] [address] Nurse Practitioner Neurological Surgery 01/24/24 Dangelo Salinas MD [address] [place] [address] Neurology 01/27/24 Anastasia Stearns, RN Lead Financial Accounting Manager 02/06/24 Germaine Aleman, CHW Community Health Worker Primary Care - CC 02/18/24 Joya Lira RPH [address] [place], [place] [phone] Pharmacist Pharmacist 05/25/24 Soraya JoyaPAZ demarco [address] [place] [address] Assigned MTM Pharmacist 06/08/24 Fabi Coates MD [address] [place] [address] 75 [place], [place] [phone] Genetics, Clinical 06/18/24 Danna Cardenas PA-C 6405 [place] [address] Assigned Heart and Vascular Provider 07/08/24 Arthur Salas LICSW [address] [place] [address] Assigned Behavioral Health Provider 08/08/24 Randy Maradiaga DO 909 [place], [place] 977855 Assigned Neuroscience Provider 08/08/24 documented as of this encounter
--- OUTSIDE RECORDS SUMMARY | 2024-11-05 13:10 | XMS_ITS | Encounter Summary ---
Author Organization [place] Address [address] [place] [address] Care Team Providers Care Occupational Therapist Aide Name Role Phone Winston Villatoro OD Unavailable [phone] Denise Woodson APRN FLUME WORKER Unavailable [phone] Denise Woodson APRN FLUME WORKER Primary Care Provider Usha Simon APRN FLUME WORKER Unavailable + [phone] Dangelo Salinas MD Unavailable Anastasia Stearns RN Unavailable [phone] Germaine Almean [facility] Unavailable [phone] Joya Lira [facility] Unavailable [phone] Joya Lira [facility] Unavailable [phone] Fabi Coates MD Unavailable [phone] Danna Cardenas PA-C Unavailable [phone] Arthur Salas OXYACETYLENE TORCH OPERATOR Unavailable [phone] Randy Maradiaga DO Unavailable + Tete Wang MD Unavailable [phone] Encounter Details Date Type Department Care Team (Late st Contact Info) Description 09/04/2024 [facility] [address] [place] [address] Qing Copeland Social History Tobacco Use Types [...] How often do you attend methodist or latter day serv ices? Never 02/28/2024 [...] Answer Date Recorded PHQ-2 Score 2 08/04/2024 [facility] - Occupational Stress Questionnaire Answer Date Recorded [...] on file Legal Sex Female 4:05 AM HR BUSINESS PARTNER Gender Identity Not on file Sexual Orientation [...] st Contact Info) Description 11/06/2024 12:00 PM HR BUSINESS PARTNER Virtual Visit [facility] [address] [place] [phone] Denise Woodson APRN [facility] [address] [place] [address] 12/01/2024 4:00 PM CDT Virtual Visit [facility] [place] [address] [place] [phone] Lisa Zambrano MD [address] [place] [address] 12/03/2024 7:00 AM CDT Virtual Visit [facility] [address] 3rd [place] [phone] Randy Maradiaga DO [address] [place] [address] 12/09/2024 12:45 PM CDT Office Visit [facility] [address] [place] [phone] Tete Wang MD [address] [place] [address] 12/09/2024 1:15 PM CDT Office Visit [facility] [address] [place] [phone] Tete Wang MD [address] [place] [address] 12/15/2024 3:00 PM CDT Virtual Visit [facility] [address] [place] [address] Denise Woodson APRN [facility] [address] [place] [address] 01/19/2025 PRE VISIT [facility] [address] [phone] Any Joiner MD [address] [place] [phone] *-*INCOMING RECORDS*-* 01/19/2025 3:00 PM CDT Orders Only [facility] Pulmonary Function Testing [address] [place] [phone] 01/19/2025 4:00 PM CDT [facility] [address] [phone] Any Joiner MD [address] [place] [address] 06/01/2025 11:15 AM CDT Appointment [facility] Imaging [address] [facility] [address] [place] [phone] Robin Zepeda MD [address] [place] [address] 900525 06/04/2025 11:00 AM CDT Office Visit [facility] [address] [phone] Robin Zepeda MD [address] [place] [address]68605 Usha Simon APRN [address] [address] documented as of this encounter Visit Diagnoses Not on filedocumented in this encounter Additional Health Concerns Infection Onset Date Last Indicated Resolved Time Rule Out COVID-19 09/13/2024 09/13/2024 09/13/2024 12:31 PM HR BUSINESS PARTNER Assessment Noted Time PHQ-9 Depression Total Score: 5 08/03/20 24 12:49 PM HR BUSINESS PARTNER documented as of this encounter Care Teams Occupational Therapist Aide Relationship Specialty Start Date End Date Winston VillatoroAMELIE [facility] [place] [address] [place] [address] PCP - Ophthalmology Ophthalmology 02/11/13 Denise Woodson APRN FLUME WORKER [address] [facility] [place] [address] PCP - General Family Practice 09/21/20 Denise Woodson APRN FLUME WORKER [address] [place] [address] Assigned PCP 07/17/20 Usha Simon APRN FLUME WORKER 909 [facility] [address] Nurse Practitioner Neurological Surgery 01/24/24 Dangelo Salinas MD [address] [place] [address] Neurology 01/27/24 Anastasia Stearns, RN Lead Regulatory Affairs Assistant 02/06/24 Germaine Aleman, CHW Community Health Worker Primary Care - CC 02/18/24 Joya Lira RPH [address] [place] [address] Pharmacist Pharmacist 05/25/24 Joya Lira RPH [address] [place] [address] Assigned [place] Pharmacist 06/08/24 Fabi Coates MD [address] [place] [address] 75 [place], [place] [address] Genetics, Clinical 06/18/24 Danna Cardenas PA-C [address] [place] [address] Assigned Heart and Vascular Provider 07/08/24 Arthur Salas [facility] [address] [address] Assigned Behavioral Health Provider 08/08/24 Randy Maradiaga DO [address] [place] [address] Assigned Neuroscience Provider 08/08/24 Tete Wang MD [address] [place] [address] 459604 Genetics, Clinical 10/30/24 documented as of this encounter
--- OUTSIDE RECORDS SUMMARY | 2024-11-05 13:10 | XMS_ITS | Encounter Summary ---
Author Organization [place] Address [address] [place] [address] Care Team Providers Care Car Jockey Name Role Phone Winston Villatoro OD Unavailable [phone] Denise Woodson APRN FORKLIFT TRUCK OPERATOR Unavailable [phone] Denise Woodson APRN FORKLIFT TRUCK OPERATOR Primary Care Provider Usha Simon APRN FORKLIFT TRUCK OPERATOR Unavailable Dangelo Salinas MD Unavailable Anastasia Stearns RN Unavailable Germaine Aleman [facility] Unavailable Joya Lira [facility] Unavailable [phone] Joya Lira [facility] Unavailable [phone] Fabi Coates MD Unavailable [phone] Danna Cardenas PA-C Unavailable [phone] Arthur Salas ASPHALT ENGINEER Unavailable [phone] Randy Maradiaga DO Unavailable + Reason for Referral * Consultation (Routine: Next available opening) - Pending Review Specialty Diagnoses / Procedures Referred By Contac t Referred To Contact Pulmonary Disease Diagnoses BPD (bronchopulmonary dysplasia) (H) Denise Woodson APRN FORKLIFT TRUCK OPERATOR [address] [place] [address] Phone: tel: fax: Referral ID Status Reason Start Date Expiration Date V joni Requested Visits Authorized [id number] Pending Review 09/28/2024 09/28/2025 1 1 Question Answer Reason for Referral: General Pulmonary Patient Scheduling Instructions: [facility] will call you to coordinate your care as prescribed by the provider. If you don t hear from a business banking representative within 2 business days, please call . Comments Please be aware that coverage of these services is subject to the terms and limitations of your health insurance plan. Call member services at your health plan with any benefit or coverage questions. [facility] will call you to coordinate your care as prescribed by the provider. If you don t hear from a business banking representative within 2 business days, please call . AGENT Reason for Visit * Reason Comments Video Visit Cough Encounter Details Date Type Department Care Team (Late st Contact Info) Description 09/28/2024 12:00 PM NEWSAGENT Virtual Visit [facility] [address] [place] [address] Denise Woodson APRN FORKLIFT TRUCK OPERATOR [address] [place] [address] Chronic obstructive pulmonary disease without exacerbation (H) (Primary Dx); BPD (bronchopulmonary dysplasia) (H); Anxiety Social History Tobacco Use Types Packs/Day [...] Never 09/16/2024 How often do you attend bahai or zoroastrian serv ices? 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 How would you like to obtain your AVS? MyChart If the video visit is dropped, the invitation should be resent by: Text to cell phone: [phone] Will anyone else be joining your video visit? No Assessment & Plan Chronic obstructive pulmonary disease without exacerbation (H) BPD (bronchopulmonary dysplasia) (H) Improved with current regimen. She will see pulmonology for further direction on how to manage in the future. - Adult Pulmonary Medicine Law Firm Administrator Referral; Future Anxiety Interested in increase in dose. Increase from 5mg to 10mg. Will plan to check an EKG to recheck QT interval at her upcoming visit in a few weeks. Pt agrees with plan and verbalized understanding. - EKG 12-lead complete w/read - Clinics - citalopram (CELEXA) 10 MG tablet; Take 1 tablet (10 mg) by mouth daily. The longitudinal plan of care for the diagnosis(es)/condition(s) as documented were addressed during this visit. Due to the added complexity in care, I will continue to support Alcon in the subsequent management and with ongoing continuity of care. BMI Estimated body mass index is 31.78 kg/m?? as calculated from the following: Height as of 09/18/24: 1.727 m (5' 8). Weight as of 09/18/24: 94.8 kg (209 lb). Subjective Alcon is a 49 year old, presenting for the following health issues: Video Visit and Cough HPI Acute Illness Acute illness concerns: cough Onset/Duration: 09/07/2024 Symptoms: Fever: No Chills/Sweats: No Headache (location?): No Sinus Pressure: No Conjunctivitis: No Ear Pain: no Rhinorrhea: No Congestion: No Sore Throat: No Cough: YES-productive of yellow sputum, improving over time Wheeze: No Decreased Appetite: No Nausea: No Vomiting: No Diarrhea: No Dysuria/Freq.: No Dysuria or Hematuria: No Fatigue/Achiness: No Sick/Strep Exposure: No Therapies tried and outcome: reyna petrona is helping. Started medications as planned 09/18/24. She noticed an improvement in her respiratory symptoms. She developed redness in the face as well as burning in the skin. She stopped the doxycycline and prednisone at that time as they were unsure what was causing the reaction. She was given a prescription for brie. She noticed the previous side effects resolved 09/23/24. She did notice a return of her respiratory symptoms and so she started her azithromycin. She is again noticing improvement in her respiratory symptoms again. She is not having any side effects to the azithromycin. She has taken the azithromycin for 3 days. Review of Systems Constitutional, HEENT, cardiovascular, pulmonary, gi and gu systems are negative, except as otherwise noted. Objective Vitals - Patient Reported Weight (Patient Reported): 95.3 kg (210 lb) Pain Score: Mild Pain (2) Pain Loc: Other - see comment (left lung) Vitals: No vitals were obtained today due [...] Signed Electronically by: Denise Woodson APRN CNP AGENT documented in this encounter Plan of Treatment Upcoming Encounters Date Type Department Care Team (Late st Contact Info) Description 11/06/2024 12:00 PM NEWSAGENT Virtual Visit [facility] [address] [place] [phone] Denise Woodson APRN FORKLIFT TRUCK OPERATOR [address] [place], [place] [phone] 12/01/2024 4:00 PM CDT Virtual Visit [facility] [address] [place] [address] Lisa Zambrano MD [address] [facility] [address] [place], [place] [address] 12/03/2024 7:00 AM CDT Virtual Visit [facility] [address] 3rd [place] [phone] Randy Maradiaga, [address] [address] 12/09/2024 12:45 PM CDT Office Visit [facility] [address] [place] [address] [address],[place] [phone] Tete Wang MD [address] [place] [address] 773624 12/09/2024 1:15 PM CDT Office Visit [facility] [address],[place] [phone] Tete Wang MD [facility] [place] [address] 12/15/2024 3:00 PM CDT Virtual Visit [facility] [address] [place] [address] Denise Woodson APRN FORKLIFT TRUCK OPERATOR [address] [place] [address] 01/19/2025 PRE VISIT [facility] [address] [phone] Any Joiner MD [address] [place] [address] [phone] *-*INCOMING RECORDS*-* 01/19/2025 3:00 PM CDT Orders Only [facility] Pulmonary Function Testing [address] 3rd [place] [phone] 01/19/2025 4:00 PM CDT Office Visit [facility] [address] [phone] Any Joiner MD [address] [place] [address] [phone] 06/01/2025 11:15 AM CDT Appointment [facility] Imaging [address] [place] [phone] Robin Zepeda MD [address] [place] [address] BO5917MW [place], [place] 539015 06/04/2025 11:00 AM CDT Office Visit [address] 3rd [place] [phone] Robin Zepeda MD [address] [place] [address]1615 Usha Simon APRN FORKLIFT TRUCK OPERATOR [address] [place] [address] 090295 Scheduled Referrals Name Type Priority Associated Diagnoses Orde r Schedule Adult Pulmonary Medicine Law Firm Administrator Referral Referral Routine: Next available opening BPD (bronchopulmonary dysplasia) (H) Expected: 09/28/2024 (Approximate), Expires: 09/28/2025 documented as of this encounter Visit Diagnoses Diagnosis Chronic obstructive pulmonary disease without exacerbation (H)- Primary BPD (bronchopulmonary dysplasia) (H) Chronic respiratory disease arising in the period Anxiety Anxiety state, unspecified documented in this encounter Additional Health Concerns Assessment Noted Time PHQ-9 Depression Total Score: 0 09/18/19 25 12:46 PM NEWSAGENT documented as of this encounter Care Teams Car Jockey Relationship Specialty Start Date End Date [place] Villatoro OD [facility] [place] [address] [facility] [address] [place] [address] PCP - Ophthalmology Ophthalmology 02/11/13 Denise Woodson APRN FORKLIFT TRUCK OPERATOR [address] [address] PCP - General Family Practice 09/21/20 Denise Woodson APRN FORKLIFT TRUCK OPERATOR [address] [address] Assigned PCP 07/17/20 Usha Simon APRN FORKLIFT TRUCK OPERATOR [address] [place] [address] [id number] [place] [address] Nurse Practitioner Neurological Surgery 01/24/24 Dangelo Salinsa MD [address] [facility] [address] [address] Neurology 01/27/24 Anastasia Stearns, RN Lead Developer Relations Manager 02/06/24 Germaine Aleman, W Community Health Worker Primary Care - CC 02/18/24 Joya Lira RPH [address] [facility] [place] [address] Pharmacist Pharmacist 05/25/24 Joya Lira RPH [address] [place] [address] Assigned MTM Pharmacist 06/08/24 Fabi Coates MD [address] [place] [address] 75 [place] [address] Genetics, Clinical 06/18/24 Danna Cardenas PA-C [address] [place] [address] Assigned Heart and Vascular Provider 07/08/24 Arthur Salas LICSW [address] [address] Assigned Behavioral Health Provider 08/08/24 Randy Maradiaga DO [address] [place] [address] Assigned Neuroscience Provider 08/08/24 documented as of this encounter
--- OUTSIDE RECORDS SUMMARY | 2024-11-05 13:10 | XMS_ITS | Encounter Summary ---
Author Organization [place] Address [address] [place] [address] Care Team Providers Care Technical Associate Name Role Phone Winston Villatoro OD Unavailable [phone] Denise Woodson APRN CARDIOLOGY ASSOCIATE Unavailable [phone] Denise Woodson APRN CARDIOLOGY ASSOCIATE Primary Care Provider Usha Simon APRN CARDIOLOGY ASSOCIATE Unavailable + [phone] Dangelo Salinas MD Unavailable Anastasia Stearns RN Unavailable [phone] Germaine Aleman [facility] Unavailable +[phone] Joya Lira [facility] Unavailable +[phone] Joya Lira [facility] Unavailable [phone] Fabi Coates MD Unavailable [phone] Danna CardenasC Unavailable +[phone] Arthur Salas [employer] Unavailable [phone] Randy Maradiaga DO Unavailable + Reason for Visit * Reason Comments RECHECK Encounter Details Date Type Department Care Team (Late st Contact Info) Description 09/29/2024 9:00 AM BUSINESS SERVICES ASSISTANT Virtual Visit [facility] [address] [place] [address] Randy Maradiaga, 9[address] [place], [place] [address] Seizure-like activity (H) (Primary Dx); History of [...] How often do you attend bahai or tenriism serv ices? 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 file Not on file Not on file Not on file Not on file Not on file Not on file documented as of this encounter Last Filed Vital Signs Vital Sign Reading Time Taken Comments Blood Pressure - - Pulse - - Temperature - - Respiratory Rate - - Oxygen Saturation - - Inhaled Oxygen Concentration - - Weight 95.3 kg (210 lb) 09/29/2024 8:47 AM BUSINESS SERVICES ASSISTANT Height 174 cm (5' 8.5) 09/29/2024 8:47 AM BUSINESS SERVICES ASSISTANT Body Mass Index 31.47 09/29/2024 8:47 AM BUSINESS SERVICES ASSISTANT documented in this encounter Patient Instructions * Patient Instructions* Randy Maradiaga DO - 09/29/2024 9:00 AM BUSINESS SERVICES ASSISTANT I am so happy to hear of your improvements. Overall, I don't expect things should worsen unless there is a dramatic change neurologically. If so, please present to an Emergency department. If headaches return, let me know through mychart and we can meet quickly to discuss treatment options. Otherwise, stay on Keppra 375 mg BID and obtain a level this summer. We can plan to follow up in a year, and at that time we could consider weaning you off of Keppra if no new events are occurring concerningfor seizure. NESS SERVICES ASSISTANT documented in this encounter Progress Notes * Randy Maradiaga DO - 09/29/2024 9:00 AM CST [facility] Neurology Follow Up Visit Alcon Zamora Age: [age] year old Date of : 1975 Brief history of symptoms: The patient was initially seen in neurologic consultation on 07/02/2024 and most recently 07/30/2024 for evaluation of headache. Please see the comprehensive neurologic consultation notes from those dates in the [facility] records for details. The patient has a pertinent neurological history and prior w/up: - FMD and EDS. L-sigmoid dural AVF. [...] day. Follow up was recommended in 2 months) - The patient stopped oxcarbazepine before our first visit. At our first visit, the patients headaches were likely to be musculoskeletal, and she was referred to PM&R for trigger point injections and occipital nerve block (to be considered). Following ourfirst visit, the patient presented to an outside ED 07/12/2024 with right hand/foot paresthesias, nausea, dysphagia, fatigue, unsteadiness. Had whole body shaking episode in MRI, so exam stopped early. Keppra level was 13.3 07/12/2024. There is an excellent note written by neurology vascular provider 07/13/2024, and continued treatment for non- localizing symptoms was to be done through multidisciplinary outpatient clinics (especially psychiatric clinic~ CBT). At our last visit, it was thought the patient could have had a GTC in the setting of prior CVA, andit was unclear if her headaches had a direct correlation to this or possible her CVA in general. She was to obtain an EEG, and consider reducing acetaminophen (using for general pain overall). A TBI c linic referral was offered. Interval history: - Neuropsychology testing with Dr. Ogden PhD LP on 08/17/2024 showed the patient to have mild weakness and variability in testing suggesting subtle left hemispheric dysfunction. There was superimposed anxiety and depression. She did not meet criteria for cognitive diagnosis at the time. - EEG 09/11/2024 showed no abnormalities. Today, the patient feels she is doing really well. She feels that her issues of headaches are improved overall. She is working 20 hours a week without issues. Her memory and cognition in general feels improved. She has had no LOC episodes, or movements concerning for seizure. She feels she is getting back to normal overall. She takes aspirin daily, but is not taking acetaminophen regularly. She feels a low dose of citalopram has been helpful to reduce her anxiety and depression. She is getting adequate sleep and doesn't feel tired in the day (needing naps) or having headache in the AM. Physical Exam: General: Seated comfortably in no acute distress. Neurologic: Mental Status: Fully alert, attentive and oriented. Speech clear and fluent, no paraphasic errors. Cranial Nerves: EOMI with normal smooth pursuit. Facial movements symmetric. Hearing not formally tested but intact to conversation. No dysarthria. Motor: No tremors or other abnormal movements observed. Coordination: Wivvva-rona-fixpst without dysmetria. 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 Now resolved While the patient has had a complex neurological history recently, including provoked GTC from luis-procedural CVA in setting of left sigmoid-dural AVF, her overall symptoms and level of function is near normal, including a resolution of her prior headaches. This is great news, and the patient was encouraged at her improvement overall. We discussed what to do if headaches returned, and ways to avoid medication overuse headache. She was understanding of seizure risks, and that she should at least remain on Keppra for a period of two year before we would consider weaning her off. Plan: Keppra level in the summer of 2024 Keppra 375 mg BID Consider weaning from keppra in one year if EEG at that time is normal, and no further events have occurred Follow up in Neurology clinic in one year (virtual is fine) or earlier as needed should new concerns arise. Afua Maradiaga D.O. [employer] of Neurology Total time today (32 min) in this patient encounter was spent on pre-charting, counseling and/or coordination of care. The longitudinal plan of care for the diagnosis(es)/condition(s) as documented were addressed during this visit. Due to the added complexity in care, I will continue to support Alcon in the subsequent management and with ongoing continuity of care. NESS SERVICES ASSISTANT * Randy Maradiaga DO - 09/29/2024 9:00 AM CST Virtual Visit Details Type of service: Video Visit Originating Location (pt. Location): Home Distant Location (provider location): On-site Platform used for Video Visit: Bobby NESS SERVICES ASSISTANT documented in this encounter Nursing Notes * Airam Todd - 09/29/2024 9:00 AM CST Current patient location: [facility] [place] [address] Is the patient currently in the state of [place]? YES Visit mode: VIDEO If the visit is dropped, the patient can be reconnected by:VIDEO VISIT: Text to cell phone: Telephone Information: Will anyone else be joining the visit? NO (If patient encounters technical issues they should call [phone] :[phone]) Are changes needed to the allergy or medication list? Pt stated no changes to allergies and Pt stated no med changes Are refills needed on medications prescribed by this physician? NO Rooming Documentation: Not applicable Reason for visit: RECHFRAN Todd VVF NESS SERVICES ASSISTANT documented in this encounter Plan of Treatment Upcoming Encounters Date Type Department Care Team (Late st Contact Info) Description 11/06/2024 12:00 PM BUSINESS SERVICES ASSISTANT Virtual Visit [facility] [address] [place] [phone] Denise Woodson APRN [facility] [address] [place], [place] [address] 12/01/2024 4:00 PM CDT Virtual Visit [facility] [address] [place] [phone] Lisa Zambrano MD [address] [place] [address] 12/03/2024 7:00 AM CDT Virtual Visit [facility] [address] [place] [phone] Randy Maradiaga DO [address] [place] [address] 12/09/2024 12:45 PM CDT Office Visit [facility] [address] [place] [address],[place] [phone] Tete Wang MD [address] [place] [address] 312944 12/09/2024 1:15 PM CDT Office Visit [facility] [address] [place] [address],[place] [phone] Tete Wang MD [address] [place] [id number] 12/15/2024 3:00 PM CDT Virtual Visit [facility] [address] [place] [address] Denise Woodson APRN [facility] [address] [place] [address] 01/19/2025 PRE VISIT [facility] Lung Science [address] [address] Any Joiner MD [address] [place] [address] *-*INCOMING RECORDS*-* 01/19/2025 3:00 PM CDT Orders Only [facility] Pulmonary Function Testing [address] 3rd [place] [address] 01/19/2025 4:00 PM CDT Office Visit [facility] Science [address] [phone] Any Joiner MD [address] [place] [address] 06/01/2025 11:15 AM CDT Appointment [facility] Imaging [address] [place] [phone] Robin Zepeda MD [address] [address] 06/04/2025 11:00 AM CDT Office Visit [facility] [address] 3rd [place] [phone] Robin Zepeda MD [address] [place] [address] Usha Simon APRN CARDIOLOGY ASSOCIATE [address] [address] documented as of this encounter Visit Diagnoses Diagnosis Seizure-like activity (H)- Primary Other convulsions History of seizure Cerebrovascular accident (CVA), unspecified mechanism (H) documented in this encounter Additional Health Concerns Assessment Noted Time PHQ-9 Depression Total Score: 0 09/18/19 25 12:46 PM BUSINESS SERVICES ASSISTANT documented as of this encounter Care Teams Technical Associate Relationship Specialty Start Date End Date Winston Villatoro OD [facility] [address] [facility] [address] [place] [address] PCP - Ophthalmology Ophthalmology 02/11/13 Denise Woodson APRN CARDIOLOGY ASSOCIATE [address] [address] PCP - General Family Practice 09/21/20 Denise Woodson APRN CARDIOLOGY ASSOCIATE [address] [address] Assigned PCP 07/17/20 Usha Simon APRN CARDIOLOGY ASSOCIATE 909 [facility] [id number] [place], [place] 377015 Nurse Practitioner Neurological Surgery 01/24/24 Dangelo Salinas MD [address] [place], [place] [phone] Neurology 01/27/24 Anastasia Stearns, RN Lead Fishing Rod Marker 02/06/24 Germaine Aleman, W Community Health Worker Primary Care - CC 02/18/24 Joya Lira [facility] [address] [place], [place] [phone] Pharmacist Pharmacist 05/25/24 Joya Lira [facility] [address] [place], [place] [phone] Assigned MTM Pharmacist 06/08/24 Fabi Coates MD [address] [facility] [place], [place] [address] Genetics, Clinical 06/18/24 Danna Cardenas PA-C 6405 [place], [place] [address] Assigned Heart and Vascular Provider 07/08/24 Arthur Salas LICSW [address] [place] [address] Assigned Behavioral Health Provider 08/08/24 Randy Maradiaga DO 9 [place] [address] Assigned Neuroscience Provider 08/08/24 documented as of this encounter
--- OUTSIDE RECORDS SUMMARY | 2024-11-05 13:10 | XMS_ITS | Encounter Summary ---
Author Organization [place] Address [address] [place] [address] Care Team Providers Care Continuity Clerk Name Role Phone Winston Villatoro OD Unavailable [phone] Denise Woodson APRN EROSION CONTROL SPECIALIST Unavailable [phone] Denise Woodson APRN EROSION CONTROL SPECIALIST Primary Care Provider Usha Simon APRN [facility] Unavailable + [phone] Dangelo Salinas MD Unavailable Anastasia Stearns RN Unavailable [phone] Germaine Aleman [facility] Unavailable [phone] Joya Lira [facility] Unavailable [phone] Joya Lira [facility] Unavailable [phone] Fabi Coates MD Unavailable [phone] Danna CardenasC Unavailable [phone] Arthur Salas PROFESSOR OF MEDICINE Unavailable [phone] Randy Maradiaga DO Unavailable + Encounter Details Date Type Department Care Team (Latest Contact Info) Description 09/27/2024 Travel Social History Tobacco Use Types Packs/Day [...] Never 09/16/2024 How often do you attend yarsanism or buddhism serv ices? Never 09/16/2024 Do [...] Date Recorded PHQ-2 Score 0 09/18/2024 [facility] [place] of Occupat ional Health - Occupational Stress [...] on file Legal Sex Female 4:05 AM DIAPER MACHINE TENDER Gender Identity Not on file Sexual [...] st Contact Info) Description 11/06/2024 12:00 PM DIAPER MACHINE TENDER Virtual Visit [facility] [address] [facility] [place] [address] Denise Woodson APRN EROSION CONTROL SPECIALIST [address] [place] [address] 12/01/2024 4:00 PM CDT Virtual Visit [facility] Kate [address] [address] Lisa Zambrano MD 6405 [facility] [address] [place] 4[address] 12/03/2024 7:00 AM CDT Virtual Visit [facility] Neurology [address] 3rd [place] [phone] Randy Maradiaga DO [address] [place] [address] 12/09/2024 12:45 PM CDT Office Visit [facility] [address] [place] [phone] Tete Wang MD [address] [place] [phone] 12/09/2024 1:15 PM CDT Office Visit [facility] [address] [place] [phone] Tete Wang MD [address] [place] [address] 467044 12/15/2024 3:00 PM CDT Virtual Visit [facility] [address] [place] [address] Denise Woodson APRN [facility] [address] [place], [place] [phone] 01/19/2025 PRE VISIT [facility] for Lung Science and Health [address] [phone] Any Joiner MD [address] [address] *-*INCOMING RECORDS*-* 01/19/2025 3:00 PM CDT Orders Only [facility] Pulmonary Function Testing [address] [phone] 01/19/2025 4:00 PM CDT Office Visit [facility] Clinic [address] [phone] Any Joiner MD 420 [facility] 276 [place], [place] [address] 06/01/2025 11:15 AM CDT Appointment [facility] Imaging [address] [place] [place] [phone] Robin Zepeda MD [address] [place] [address] 833995 06/04/2025 11:00 AM CDT Office Visit [facility] Neurosurgery Clinic [address] [phone] Robin Zepeda MD [address] [place] [address] 732405 Usha Simon APRN [address] 246425 documented as of this encounter Visit Diagnoses Not on filedocumented in this encounter Additional Health Concerns Assessment Noted Time PHQ-9 Depression Total Score: 0 09/18/19 25 12:46 PM DIAPER MACHINE TENDER documented as of this encounter Care Teams Continuity Clerk Relationship Specialty Start Date End Date Winston Villatoro OD [facility] [place] [address] [facility] [address] [place] [address] PCP - Ophthalmology Ophthalmology 02/11/13 Denise Woodson APRN EROSION CONTROL SPECIALIST [address] [place] [address] PCP - General Family Practice 09/21/20 Denise Woodson APRN EROSION CONTROL SPECIALIST [address] [place] [address] Assigned PCP 07/17/20 Usha Simon APRN EROSION CONTROL SPECIALIST 909 [facility]2121[place], [place] [address] Nurse Practitioner Neurological Surgery 01/24/24 Dangelo Salinas MD [address] [place], [place] [phone] Neurology 01/27/24 Anastasia Stearns, RN Lead Mill Tender 02/06/24 Germaine Aleman, W Community Health Worker Primary Care - CC 02/18/24 Joya Lira [facility] [address] [place] [address] Pharmacist Pharmacist 05/25/24 Joya Lira [facility] [address] [place] [address] Assigned MTM Pharmacist 06/08/24 Fabi Caotes MD 420 [facility] 75 [place] [address] Genetics, Clinical 06/18/24 Danna Cardenas, PANilesC [address] [place] [address] Assigned Heart and Vascular Provider 07/08/24 Arthur Salas LICSW [address] [address] Assigned Behavioral Health Provider 08/08/24 Randy Maradiaga DO [address] [place] [address] Assigned Neuroscience Provider 08/08/24 documented as of this encounter
--- OUTSIDE RECORDS SUMMARY | 2024-11-05 13:10 | XMS_ITS | Encounter Summary ---
Author Organization [place] Address [address] [place] [address] Care Team Providers Care Catholic Priest Name Role Phone Winston Villatoro OD Unavailable [phone] Denise Woodson APRN [employer] Unavailable [phone] Denise Woodson APRN [employer] Primary Care Provider Usha Simon APRN [employer] Unavailable + [phone] Dangelo Salinas MD Unavailable Anastasia Stearns RN Unavailable [phone] [facility] Unavailable [phone] Joya Lira [facility] Unavailable [phone] Joya Lira [facility] Unavailable [phone] Fabi Coates MD Unavailable [phone] Danna Cardenas PA-C Unavailable [phone] Arthur Salas MANAGER OF DIGITAL Unavailable [phone] Randy Maradiaga DO Unavailable + Tete Wang MD Unavailable [phone] Encounter Details Date Type Department Care Team (Late st Contact Info) Description 08/11/2024 [facility] [address] [place] [address] Arthur Salas, MANAGER OF DIGITAL [address] [place] [address] Social History Tobacco Use Types Packs/Day Years [...] How often do you attend mosque or druze serv ices? 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 [place] [address] [place] [phone] Lisa Zambrano MD [address] [place] [address] 12/03/2024 7:00 AM CDT Virtual Visit [facility] Neurology [address] [phone] Randy Maradiaga [address] 858045 12/09/2024 12:45 PM CDT Office Visit [facility] [address] [place] [address] [phone] Tete Wang MD [address] [place] [address] 12/09/2024 1:15 PM CDT Office Visit [facility]ty Clinic [address] [place] [address] [phone] Tete Wang MD [address] [place] [address] 106[address] 12/15/2024 3:00 PM CDT Virtual Visit [facility] [address] [place] [phone] Denise Woodson APRN [employer] [address] [place] [address] 01/19/2025 PRE VISIT [facility] Lung Science [address] [phone] Any Joiner MD [address] [place] [address]84215 *-*INCOMING RECORDS*-* 01/19/2025 3:00 PM CDT Orders Only [facility] Pulmonary Function Testing [address] [place] [address] 01/19/2025 4:00 PM CDT Office Visit [facility] Lung Science [address] [phone] Any Joiner MD [address] [place] [phone] 06/01/2025 11:15 AM CDT Appointment [facility] Imaging [address] [facility] [address] [place] [address] Robin Zepeda MD [address] [place] [address] 06/04/2025 11:00 AM CDT Office Visit [facility] Clinic [address] [phone] Robin Zepeda MD [address] [place] [address] 263395 Usha Simon APRN [address] 414415 documented as of this encounter Visit Diagnoses Not on filedocumented in this encounter Additional Health Concerns Infection Onset Date Last Indicated Resolved Time Rule Out COVID-19 09/13/2024 09/13/2024 09/13/2024 12:31 PM PAEDIATRICIAN Assessment Noted Time PHQ-9 Depression Total Score: 5 08/03/20 12:49 PM PAEDIATRICIAN documented as of this encounter Care Teams Catholic Priest Relationship Specialty Start Date End Date Winston Villatoro OD [facility] [place] [address] [place] [address] PCP - Ophthalmology Ophthalmology 02/11/13 Denise Woodson APRN [employer] [address] [place] [address] PCP - General Family Practice 09/21/20 Denise Woodson APRN [employer] [address] [address] [place] [address] Assigned PCP 07/17/20 Usha Simon APRN [employer] 909 [facility]2121[place], [place] [address] Nurse Practitioner Neurological Surgery 01/24/24 Dangelo Salinas MD [address] [place], [place] [phone] Neurology 01/27/24 Anastasia Stearns, RN Lead Agronomy Manager 02/06/24 Germaine Aleman, CHW Community Health Worker Primary Care - CC 02/18/24 Joya Lira RPH [address] [place], [place] [phone] Pharmacist Pharmacist 05/25/24 Soraya Joya [facility] [address] [place] [address] Assigned MTM Pharmacist 06/08/24 Fabi Coates MD [address] [facility] [address] [place] [address] Genetics, Clinical 06/18/24 Danna Cardenas PA-C 6405 [place] [address] Assigned Heart and Vascular Provider 07/08/24 Arthur Salas LICSW [address] [place] [address] Assigned Behavioral Health Provider 08/08/24 Randy Maradiaga DO 909 [place], [place] 163445 Assigned Neuroscience Provider 08/08/24 Tete Wang MD 2450 [place], [place] 126294 Genetics, Clinical 10/30/24 documented as of this encounter
--- OUTSIDE RECORDS SUMMARY | 2024-11-05 13:10 | XMS_ITS | Encounter Summary ---
Author Organization [place] Address [address] [place] [address] Care Team Providers Care Link Wire Fabric Machine Operator Name Role Phone Winston Villatoro OD Unavailable [phone] Denise Woodson APRN LINE CLEANER Unavailable [phone] Denise Woodson APRN LINE CLEANER Primary Care Provider Usha Simon APRN LINE CLEANER Unavailable Dangelo Salinas MD Unavailable Usha Simon APRN LINE CLEANER Unavailable Anastasia Stearns RN Unavailable Germaine Aleman CH Unavailable [phone] Robin Zepeda MD Unavailable [phone] Lisa Zambrano MD Unavailable Raul Hoyos MD Unavailable Joya Lira RP Unavailable [phone] Joya Lira RPJoleen Unavailable +[phone] Fabi Coates MD Unavailable [phone] Robin Zepeda MD Unavailable Danna Cardenas PA-C Unavailable [phone] Felicita Desai RN Unavailable Unavailab Arthur Rios [facility] Unavailable [phone] Randy Maradiaga DO Unavailable + Tete Wang MD Unavailable +[phone] Reason for Visit * Reason Onset Date Comments Appointment 01/23/2024 Referral-Stroke hospital follow up Encounter Details Date Type Department Care Team (Late st Contact Info) Description 01/23/2024 [facility] Neurology Clinic [address] 3rd [place] [address] None Appointment (Referral-Stroke hospital follow [...] on file Legal Sex Female 4:05 AM FITNESS WORKER Gender Identity Not on file Sexual Orientation Not on file 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 Delisa Manuel Ur 5 Med Surg Diagnosis and/or Symptoms: Stroke Please review referral for Stroke as no HFU orders are entered for Stroke follow up. Patient discharged on 01/22/24 from [facility] and is now in Acute Rehab Unit. Action Taken: Message routed to: [facility] Neurology Travel Screening: Not Applicable documented in this encounter Plan of Treatment Upcoming Encounters Date Type Department Care Team (Late st Contact Info) Description 11/06/2024 12:00 PM FITNESS WORKER [facility] [address] [place] [phone] Denise Woodson [employer] [address] [place], [place] [phone] 12/01/2024 4:00 PM CDT Virtual Visit [facility] Vascular Clinic [place] [address] [place] [address] Lisa Zambrano MD [address] [place] 215225 12/03/2024 7:00 AM CDT Virtual Visit [facility] Neurology Clinic [address] [phone] Randy Maradiaga, [address] [address] 12/09/2024 12:45 PM CDT Office Visit [facility] [address] [place] [address] [phone] Tete Wang MD [address] [place] [address] 528474 12/09/2024 1:15 PM CDT Office Visit [facility] [address] [place] [address] [phone] Tete Wang MD [address] [place] [address] 067674 12/15/2024 3:00 PM CDT [facility] [address] [place] [phone] Denise Woodson APRN LINE CLEANER [address] [place], [place] [phone] 01/19/2025 PRE VISIT [facility] Lung Science [address] [phone] Any Joiner MD [address] [place] [address] 357795 *-*INCOMING RECORDS*-* 01/19/2025 3:[address] [facility] Pulmonary Function Testing [address] [phone] 01/19/2025 4:00 PM CDT Office Visit [facility] Lung Science [address] [phone] Any Joiner MD [address] [place] [address] 220235 06/01/2025 11:[address] [facility] Imaging [address] [facility] [address] [place] [phone] Robin Zepeda MD [address] [place] [address] 129815 06/04/2025 11:00 AM CDT Office Visit [address] [phone] Robin Zepeda MD [address] [place] [address] 929885 Usha Simon APRN LINE CLEANER [address] [place] [address] documented as of this encounter Visit Diagnoses Not on filedocumented in this encounter Additional Health Concerns Infection Onset Date Last Indicated Resolved Time Rule Out COVID-19 09/13/2024 09/13/2024 09/13/2024 12:31 PM FITNESS WORKER Assessment Noted Time PHQ-9 Depression Total Score: 0 06/23/20 21 4:11 PM CDT documented as of this encounter Care Teams Link Wire Fabric Machine Operator Relationship Specialty Start Date End Date Winston Villatoro OD [facility] [place] [address] [place] [address] PCP - Ophthalmology Ophthalmology 02/11/13 Denise Woodson APRN LINE CLEANER [address] [place] [address] PCP - General Family Practice 09/21/20 Denise Woodson APRN LINE CLEANER [address] [address] [facility] [address] Assigned PCP 07/17/20 Usha Simon APRN LINE CLEANER [address] [place] [address] Nurse Practitioner Neurological Surgery 01/24/24 Dangelo Salinas MD [address] [place] [address] Neurology 01/27/24 Usha Simon APRN LINE CLEANER [address] [address] Assigned Neuroscience Provider 02/06/24 03/07/24 Anastasia Stearns, RN Lead Labor And Delivery Nurse 02/06/24 Germaine Aleman, W Community Health Worker Primary Care - CC 02/18/24 Robin Zepeda MD [address] [address] Assigned Neuroscience Provider 03/08/24 05/07/24 Lisa Zambrano MD [address] [facility] [address] [place] [address] Assigned Heart and Vascular Provider 05/08/24 07/07/24 Raul Hoyos MD [address] [place] [address] Assigned Neuroscience Provider 05/08/24 07/07/24 Joya Lira Joleen [address] [place] [address] Pharmacist Pharmacist 05/25/24 Joya Lira Joleen [address] [place] [address] Assigned MTM Pharmacist 06/08/24 Fabi Coates MD [address] [facility] [address] [place] [address] Genetics, Clinical 06/18/24 Robin Zepeda MD [address] [address] Assigned Neuroscience Provider 07/08/24 08/07/24 Danna Cardenas PA-C 6405 [place] [address] Assigned Heart and Vascular Provider 07/08/24 Felicita Desai, RN Lead Labor And Delivery Nurse 07/14/24 07/28/24 Arthur Salas [facility] [address] [place] [address] Assigned Behavioral Health Provider 08/08/24 Randy Maradiaga DO 909 [place] [address] Assigned Neuroscience Provider 08/08/24 Tete Wang MD [address] [place] [address] Genetics, Clinical 10/30/24 documented as of this encounter
--- OUTSIDE RECORDS SUMMARY | 2024-11-05 13:10 | XMS_ITS | Encounter Summary ---
Author Organization [place] Address [address] [place] [address] Care Team Providers Care Clinic Manager Name Role Phone Winston Villatoro OD Unavailable [phone] Denise Woodson APRN MAGAZINE WORKER Unavailable [phone] Denise Woodson APRN MAGAZINE WORKER Primary Care Provider Usha Simon APRN MAGAZINE WORKER Unavailable + [phone] Dangelo Salinas MD Unavailable Anastasia Stearns RN Unavailable [phone] Germaine Aleman [facility] Unavailable [phone] Joya Lira [facility] Unavailable [phone] Joya Lira [facility] Unavailable [phone] Fabi Coates MD Unavailable [phone] Danna Cardenas PA-C Unavailable [phone] Arthur Salas GATE AGENT Unavailable [phone] Randy Maradiaga DO Unavailable + Tete Wang MD Unavailable [phone] Encounter Details Date Type Department Care Team (Late st Contact Info) Description 08/14/2024 [facility] Neurology [address] [place] [address] Laronfortunato Randy Yobany, DO 909 [place] [address] Social History Tobacco Use Types [...] How often do you attend anglican or cheondoism serv ices? 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 [place] [phone] Lisa Zambrano MD [address] [place] [address] 12/03/2024 7:00 AM CDT Virtual Visit [facility] Neurology [address] [phone] Randy Maradiaga [address] [phone] 12/09/2024 12:45 PM CDT Office Visit [facility] [address] [place] [address] [phone] Tete Wang MD [address] [place] [address] 12/09/2024 1:15 PM CDT Office Visit [facility] [address] [place] [address] [phone] Tete Wang MD [address] [place] [address] 252964 12/15/2024 3:00 PM CDT Virtual Visit [facility] [address] [place] [phone] Denise Woodson APRN MAGAZINE WORKER [address] [place] [address] 01/19/2025 PRE VISIT [facility] Lung Science [address] [phone] Any Joiner MD [address] [place] [address] 724055 *-*INCOMING RECORDS*-* 01/19/2025 3:00 PM CDT Orders Only [facility] Pulmonary Function Testing [address] [phone] 01/19/2025 4:00 PM CDT Office Visit [facility] Lung Science [address] [phone] Any Joiner MD [address] [place] [address] 896945 06/01/2025 11:15 AM CDT Appointment [facility] Imaging [address] [facility] [address] [place] [phone] Robin Zepeda MD [address] [place] [address] 025155 06/04/2025 11:00 AM CDT Office Visit [facility] [address] [phone] Robin Zepeda MD [address] [place] [address] 067535 Usha Simon APRN [address] 699315 documented as of this encounter Visit Diagnoses Not on filedocumented in this encounter Additional Health Concerns Infection Onset Date Last Indicated Resolved Time Rule Out COVID-19 09/13/2024 09/13/2024 09/13/2024 12:31 PM STONE MASON Assessment Noted Time PHQ-9 Depression Total Score: 5 08/03/20 24 12:49 PM STONE MASON documented as of this encounter Care Teams Clinic Manager Relationship Specialty Start Date End Date Winston Villatoro OD [facility] [place] [address] [place] [address] PCP - Ophthalmology Ophthalmology 02/11/13 Denise Woodson APRN MAGAZINE WORKER [address] [place] [address] PCP - General Family Practice 09/21/20 Denise Woodson APRN MAGAZINE WORKER [address] [place] [address] Assigned PCP 07/17/20 Usha Simon APRN MAGAZINE WORKER [address] [facility] [place] [address] Nurse Practitioner Neurological Surgery 01/24/24 Dangelo Salinas MD [address] [place], [place] [phone] Neurology 01/27/24 Anastasia Stearns, RN Lead Utility Bill Collection Clerk 02/06/24 Germaine Aleman, CHW Community Health Worker Primary Care - CC 02/18/24 Joya Lira RPH [address] [place], [place] [phone] Pharmacist Pharmacist 05/25/24 Soraya Joya [facility] [address] [place] [address] Assigned MTM Pharmacist 06/08/24 Fabi Coates MD 420 [facility] 75 [place] [address] Genetics, Clinical 06/18/24 Danna Cardenas PA-C 6405 [place] [address] Assigned Heart and Vascular Provider 07/08/24 Arthur Salas GATE AGENT [address] [place] [address] Assigned Behavioral Health Provider 08/08/24 Randy Maradiaga DO 909 [place], [place] [phone] Assigned Neuroscience Provider 08/08/24 Tete Wang MD [address] [place], [place] 092414 Genetics, Clinical 10/30/24 documented as of this encounter
--- OUTSIDE RECORDS SUMMARY | 2024-11-05 13:10 | XMS_ITS | Encounter Summary ---
Author Organization [place] Address [address] [place] [address] Care Team Providers Care Room Service Manager Name Role Phone Winston Villatoro OD Unavailable [phone] Denise Woodson APRN CLINICAL DOCUMENTATION SPEC Unavailable [phone] Denise Woodson APRN CLINICAL DOCUMENTATION SPEC Primary Care Provider Usha Simon APRN CLINICAL DOCUMENTATION SPEC Unavailable Dangelo Salinas MD Unavailable Anastasia Stearns RN Unavailable [phone] Germaine Aleman [facility] Unavailable [phone] Joya Lira [facility] Unavailable [phone] Joya Lira [facility] Unavailable Fabi Coates MD Unavailable [phone] Danna CardenasC Unavailable [phone] Arthur Salas MANAGER MOTOR Unavailable [phone] Randy Maradiaga DO Unavailable + Encounter Details Date Type Department Care Team (Late st Contact Info) Description 09/30/2024 [facility] [address] [address] None Social History Tobacco Use [...] How often do you attend latter-day or roman catholic serv ices? 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 Not on file Not on file Not on file Not on file Not on file Not on file documented as of this encounter Miscellaneous Notes * Telephone Encounter - Tootie Santana - 09/30/2024 9:27 AM CST Patient confirmed scheduled appointment: Date: 01/19/2025 Time: 4:00PM Visit type: SALMAULM REFERRAL Provider: ALBERT Location: [facility] Testing/imaging: N/A Additional notes: N/A MODELING SPECIALIST documented in this encounter Plan of Treatment Upcoming Encounters Date Type Department Care Team (Late st Contact Info) Description 11/06/2024 12:00 PM DATA MODELING SPECIALIST Virtual Visit [facility] [address] [place] [phone] Chintan Denise PRODUCT MGR [facility] [address] [place], [place] [phone] 12/01/2024 4:00 PM CDT Virtual Visit [facility] Vascular Clinic [place] [address] [place] [phone] Lisa Zambrano MD [address] [place] [address]275 12/03/2024 7:00 AM CDT Virtual Visit [facility] Neurology [address] [phone] Randy Maradiaga, [address] [address] 12/09/2024 12:45 PM CDT Office Visit [facility] Pediatric Specialty Clinic [address] [place] [phone] Tete Wang MD [address] [place] [address] 472164 12/09/2024 1:15 PM CDT Office Visit [facility] [address] [place] [address] [phone] Tete Wang MD [address] [place] [address] 799424 12/15/2024 3:00 PM CDT Virtual Visit [facility] [address] [place] [phone] Denise Woodson APRN CLINICAL DOCUMENTATION SPEC [address] [place], [place] 3509668 01/19/[address] [facility] Lung Science [address] [phone] Any Joiner MD [address] [place] [address] 855185 *-*INCOMING RECORDS*-* 01/19/2025 3:00 PM CDT Orders Only [facility] Pulmonary Function Testing [address] [phone] 01/19/2025 4:00 PM CDT Office Visit [facility] Lung Science [address] [phone] Any Joiner MD [address] [place] [address] 844875 06/01/2025 11:15 AM CDT Appointment [facility] Imaging [address] [facility] [address] [place] [address] Robin Zepeda MD [address] [place] [address] 06/04/2025 11:00 AM CDT Office Visit [address] [phone] Robin Zepeda MD [address] [place] [address] 969915 Usha Simon APRN CLINICAL DOCUMENTATION SPEC [address] [address] documented as of this encounter Visit Diagnoses Not on filedocumented in this encounter Additional Health Concerns Assessment Noted Time PHQ-9 Depression Total Score: 0 09/18/19 25 12:46 PM DATA MODELING SPECIALIST documented as of this encounter Care Teams Room Service Manager Relationship Specialty Start Date End Date Winston Villatoro OD [facility] [place] [address] [place] [address] PCP - Ophthalmology Ophthalmology 02/11/13 Denise Woodson APRN CLINICAL DOCUMENTATION SPEC [address] [facility] [place] [place] [address] PCP - General Family Practice 09/21/20 Denise Woodson APRN CLINICAL DOCUMENTATION SPEC [address] [place] [address] Assigned PCP 07/17/20 Usha Simon APRN CLINICAL DOCUMENTATION SPEC [address] [address] Nurse Practitioner Neurological Surgery 01/24/24 Dangelo Salinas MD [address] [place] [address] Neurology 01/27/24 Anastasia Stearns, RN Lead Cake Wrapper 02/06/24 Germaine Aleman, CHW Community Health Worker Primary Care - CC 02/18/24 Joya Lira RPH [address] [place], [place] [phone] Pharmacist Pharmacist 05/25/24 Joya Lira RPH [address] [place] [address] Assigned MTM Pharmacist 06/08/24 Fabi Coates MD 420 [facility] 75 [place], [place] 493585 Genetics, Clinical 06/18/24 Danna Cardenas PA-C 6405 [place] [address] Assigned Heart and Vascular Provider 07/08/24 Arthur Salas [facility] [address] [phone] Assigned Behavioral Health Provider 08/08/24 Randy Maradiaga DO 909 [place], [place] 023465 Assigned Neuroscience Provider 08/08/24 documented as of this encounter
[2024-11-05 13:32] LABS: Basophils Absolute Auto 0.03 K/uL (0.00-0.30); Basophils Percent Auto 0.3 % (0.0-3.0); Eosinophils Percent Auto 19.3 % (0.0-7.0); Hematocrit 42.7 % (33.0-51.0); Immature Granulocytes Abs Auto 0.01 K/uL (0.00-0.30); Immature Granulocytes Pct Auto 0.1 %; Lymphocytes Absolute Auto 1.99 K/uL (0.90-2.90); Lymphocytes Percent Auto 22.6 % (20-44); Mean Corpuscular HGB Conc 33 gm/dL (32-36); Mean Corpuscular Hemoglobin 31 pg (26-34); Mean Corpuscular Volume 93 fL (80-100); Monocytes Percent Auto 5.3 % (0.0-11.0); Neutrophils Percent Auto 52.4 % (42.0-72.0); Platelet Count* 188 K/uL (140-440); RDW Coefficient of Variation % 12.5 % (11.5-15.5); Red Blood Count 4.59 m/uL (4.00-5.20)
[2024-11-05 13:39] LABS: Chloride* 100 mmol/L (96-114); Potassium* 4.2 mmol/L (3.6-5.1); Sodium* 137 mmol/L (135-149)
[2024-11-05 13:41] LABS: Creatinine* 0.7 mg/dL (0.5-1.5); Estimated Glomerular Filt Rate 107 ml/min
[2024-11-05 13:42] LABS: Anion Gap 5 mEq/L (7-15); Blood Urea Nitrogen* 15 mg/dL (5-24); Carbon Dioxide* 32 mmol/L (20-32); Glucose* 94 mg/dL (60-115); Slide Review Reflex No
[2024-11-05 13:43] LABS: Calcium* 9.4 mg/dL (8.4-10.6)
[2024-11-05 13:45] LABS: C Reactive Protein* 0.8 mg/dL (0.5-1.0); D Dimer Quantitative* 0.53 ug/ml (0.00-0.50)
[2024-11-05 13:50] LABS: PCR FLU A Negative PCR FLU A (Negative); PCR FLU B Negative PCR FLU B (Negative); PCR RSV Negative PCR RSV (Negative); SARS PCR* Negative SARS-CoV-2 (Negative)
[2024-11-05] MEDS: ACETAMINOPHEN 500 MG TABLET 1000 MG PO (14:40)
--- NOTE | 2024-11-05 17:48 | P.IMHP_ITS ---
Hospitalist- H&P: HPI History of Present Illness Date Seen: 11/05/24 Chief complaint: Blurry vision, Vertigo, Headache Narrative: Alcon Zamora is a 49 year old female who presented to the ER with an approximate 10 day history of feeling off. She's had dizziness, concerns of decreased cognition, decreased balance (particularly when turning). Vision seems decreased peripherally, and she's intermittently had headaches (controlled with APAP). No falls. 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 CT angio exhibited incidental finding of fibromuscular dysplasia and a non occlusive dissection). ER: - Neurology at [place] consulted by phone, MRI/MRA head and neck recommended; unfortunately we were unable to obtain in ER - normal WBC, 19% eosinphils, negative Flu/COVID/RSV - mild elevation of D-dimer; no hypoxia, tachycardia, or chest pain. EKG reassuring Alcon is admitted for MRI/MRA and therapy evaluations given new Neurological symptoms with a history of CVA. Follows with [facility]: Dr. Randy Maradiaga is primary Neurologist, Dahlia Joyce is Neurosugery. PCP is Dr. Brandee melgoza. Review of Systems Status of ROS: Reports: 10 or more systems reviewed and unremarkable except as noted in History and below Narrative: - had a GI illness (diarrhea/vomiting) 2 weeks ago, self limited - aspiration event in August - no rashes or skin lesions, asthma/allergies have been quiescent on Zyrtec/Breo - no concerning [facility] Medical History (Updated 11/05/24 @ 20:30 by Alicia Campa MD) Ischemic cerebrovascular accident (CVA) (01/09/24) ?I63.9 - Cerebral infarction, unspecified (ICD-10) History of cerebrovascular disease ?Z86.79 - Personal history of other diseases of the circulatory system (ICD- 10) Dural arteriovenous fistula (~12/2023) ?I67.1 - Cerebral aneurysm, nonruptured (ICD-10) Fibromuscular dysplasia ?I77.3 - Arterial fibromuscular dysplasia (ICD-10) Seizure (01/14/24) ?R56.9 - Unspecified convulsions (ICD-10) History of cerebral angiography (01/09/24) ?Z98.890 - Other specified postprocedural states (ICD-10) Headache ?R51.9 - Headache, unspecified (ICD-10) 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, unspecified (ICD-10) Mild persistent asthma (09/27/22) ?J45.30 - Mild persistent asthma, uncomplicated (ICD-10) Asthma ?J45.909 - Unspecified asthma, uncomplicated (ICD-10) History of blood transfusion (1994) ?Z92.89 - Personal history of other medical treatment (ICD-10) History of vitamin D deficiency ?Z86.39 - Personal history of other endocrine, nutritional and metabolic disease (ICD-10) Anxiety and depression ?F41.9 - Anxiety disorder, unspecified (ICD-10) ?F32.A - Depression, unspecified (ICD-10) Fibromyalgia ?M79.7 - Fibromyalgia (ICD-10) Mild persistent asthma ?J45.30 - Mild persistent asthma, uncomplicated (ICD-10) H/O bronchopulmonary dysplasia ?Z87.09 - Personal history of other diseases of the respiratory system (ICD- 10) Stage 1 chronic kidney disease (11/16/20) ?N18.1 - Chronic kidney disease, stage 1 (ICD-10) Simple renal cyst (10/2020) ?N28.1 - Cyst of kidney, acquired (ICD-10) Asthma ?J45.909 - Unspecified asthma, uncomplicated (ICD-10) Surgical History History of laparoscopy ?Z98.890 - Other specified postprocedural states (ICD-10) S/P dilation and curettage (1994) ?Z98.890 - Other specified postprocedural states (ICD-10) H/O tubal ligation ?Z98.51 - Tubal ligation status (ICD-10) Status post excision of lipoma (2011) ?Z98.890 - Other specified postprocedural states (ICD-10) ?Z86.018 - Personal history of other benign neoplasm (ICD-10) History of medial meniscus repair of left knee (08/04/13) ?Z98.890 - Other specified postprocedural states (ICD-10) History of laparoscopic cholecystectomy (09/29/20) ?Z90.49 - Acquired absence of other specified parts of digestive tract (ICD- 10) History of hysterectomy for benign disease (2005) ?Z90.710 - Acquired absence of both cervix and uterus (ICD-10) History of catheter-based closure of atrial septal defect (06/2006) ?Z87.74 - Personal history of (corrected) congenital malformations of heart and circulatory system (ICD-10) Family History Maternal Grandmother Stroke Paternal Grandfather Diabetes Daughter Depression Social History (Updated 11/05/24 @ 20:26 by Alicia Campa MD) Narrative: to Olaf (would be medical decision maker if needed), adult children 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 [employer] She has a college education Nonsmoker, no ETOH use What is your current living situation?: I presently have a place to live Problems where you live: no known problems Problems where you live details: N/A In the past 12 months, utilities in danger of being shut off: no In past 12 months, lack of transportation kept you from medical appts, meetings, work, or getting things needed for daily living: no In the past 12 mos, have been you worried that your food would run out before you had money to buy more?: never true In the past 12 mos, the food you bought just didn't last and you didn't have money to buy more?: never true Highest level of school completed/degree received: Associate degree: academic program Smoking Status: Never smoker Do you use any of these nicotine containing products: None Second hand tobacco smoke exposure: No How often do you have a drink containing alcohol: never How often do you have six or more drinks on one occasion: Never AUDIT-C Alcohol total score: 0 Non-prescribed substance use: denies use Caffeine: Yes How often does anyone, including family, friends and others, physically hurt you : never How often does anyone, including family, friends and others, insult or talk down to you: never How often does anyone, including family, friends and others, threaten you with harm: never How often does anyone, including family, friends and others, scream or curse at you: never Are you using contraception or practicing any form of control: Yes (hysterectomy) service: No Meds Home Medications and Allergies Home Medications ?Medication ?Instructions ?Recorded ?Confirmed ?Type fluticasone furoate 200 1 inh inhalation DAILY 07/03/22 11/05/24 History mcg-vilanterol 25 mcg/dose inhalation powder (Breo Ellipta) albuterol sulfate 90 mcg/actuation 2 puff inhalation Q4H PRN 08/01/22 11/05/24 History aerosol inhaler magnesium 250 mg tablet 250 mg PO HS 08/02/22 11/05/24 History trazodone 100 mg tablet 100 mg PO HS sleep 08/02/22 11/05/24 History cetirizine 10 mg tablet (Zyrtec) 10 mg PO DAILY 10/08/23 11/05/24 History lorazepam 1 mg tablet 0.5 - 1 mg PO DAILY PRN dizziness 05/07/24 11/05/24 History levetiracetam 750 mg tablet 375 mg PO BID 05/08/24 11/05/24 History (Keppra) citalopram 10 mg tablet 5 mg PO DAILY 09/20/24 11/05/24 History aspirin 81 mg tablet,delayed 243 mg PO DAILY 11/05/24 11/05/24 History release lidocaine 4 % topical patch 1 patch topical Q24H 11/05/24 11/05/24 History oxycodone 5 mg tablet 2.5 mg PO Q4H PRN 11/05/24 11/05/24 History psyllium husk 3.4 gram/5.4 gram 1 tbsp PO DAILY 11/05/24 11/05/24 History oral powder sennosides 8.6 mg-docusate sodium 2 tab-cap PO BID PRN 11/05/24 11/05/24 History 50 mg capsule (Senna Plus) Allergies Allergy/AdvReac Type Severity Reaction Status Date / Time bupropion Allergy Intermediate Diarrhea Verified 09/20/24 18:15 codeine Allergy Intermediate epigastric Verified 09/20/24 18:15 pain erythromycin base Allergy Intermediate stomach Verified 09/20/24 18:15 upset, diarrhea doxycycline Allergy Mild burning Verified 09/20/24 18:15 sensation in hands and feet morphine AdvReac Verified 09/20/24 18:15 Exam Narrative: Exam Narrative: GEN: Alert and oriented, sitting comfortably in bedside chair, nontoxic HEENT: No scleral icterus CV: RRR, No concerning murmurs, no carotid bruits R: LCTA bilaterally without concerning wheezing Ext: wwp, no concerning edema Skin: No concerning skin lesions or rashes on exposed skin, patient has no skin concerns Neuro: Negative Romberg, no obvious dysmetria on finger to nose testing, gait/ataxia not formally evaluated Psych: Appropriate Const: Vital Signs, click to edit/add: Vital Signs - 24 hr 11/05/24 12:28 11/05/24 13:11 11/05/24 13:15 Temperature 98.2 F Pulse Rate Pulse Rate [Pulse Oximeter] 69 Pulse Rate [Right Pulse Oximeter] Respiratory Rate 16 10 L 16 Blood Pressure Blood Pressure [Le ft Arm] Blood Pressure [Ri ght Upper Arm] 137/95 H Pulse Oximetry [facility] 11/05/24 13:29 11/05/24 13:30 11/05/24 13:31 Temperature Pulse Rate Pulse Rate [Pulse Oximeter] Pulse Rate [Right Pulse Oximeter] Respiratory Rate 12 11 L Blood Pressure 119/79 Blood Pressure [Le ft Arm] Blood Pressure [Ri ght Upper Arm] Pulse Oximetry 98 [facility] 11/05/24 14:37 11/05/24 14:45 11/05/24 15:00 Temperature Pulse Rate 61 65 Pulse Rate [Pulse Oximeter] Pulse Rate [Right Pulse Oximeter] Respiratory Rate 11 L 11 L 15 Blood Pressure Blood Pressure [Le ft Arm] Blood Pressure [Ri ght Upper Arm] Pulse Oximetry 97 95 Oxygen Delivery Or thod 11/05/24 15:01 11/05/24 15:15 11/05/24 15:30 Temperature Pulse Rate 64 82 64 Pulse Rate [Pulse Oximeter] Pulse Rate [Right Pulse Oximeter] Respiratory Rate 19 21 12 Blood Pressure 124/83 Blood Pressure [Le ft Arm] Blood Pressure [Ri ght Upper Arm] Pulse Oximetry 94 96 96 Oxygen Delivery Or thod 11/05/24 15:31 11/05/24 15:45 11/05/24 16:00 Temperature Pulse Rate 63 59 L 67 Pulse Rate [Pulse Oximeter] Pulse Rate [Right Pulse Oximeter] Respiratory Rate 13 11 L 8 L Blood Pressure 128/78 Blood Pressure [Le ft Arm] Blood Pressure [Ri ght Upper Arm] Pulse Oximetry 98 97 98 Oxygen Delivery Me thod 11/05/24 16:01 11/05/24 16:15 11/05/24 16:30 Temperature Pulse Rate 67 70 71 Pulse Rate [Pulse Oximeter] Pulse Rate [Right Pulse Oximeter] Respiratory Rate 12 12 16 Blood Pressure 112/71 Blood Pressure [Le ft Arm] Blood Pressure [Ri ght Upper Arm] Pulse Oximetry 98 97 98 Oxygen Delivery Me thod 11/05/24 16:31 11/05/24 17:31 Temperature 97.4 F L Pulse Rate 68 Pulse Rate [Pulse Oximeter] Pulse Rate [Right Pulse Oximeter] 65 Respiratory Rate 17 16 Blood Pressure 127/74 Blood Pressure [Le ft Arm] 147/70 H Blood Pressure [Ri ght Upper Arm] Pulse Oximetry 99 97 Oxygen Delivery Me thod Room Air Hospitalist - H&P: Result Labs Labs: Short CBC 11/05/24 Range/Units 13:15 WBC 8.80 (4.50-11.00) K/uL Hgb 14.0 (12.0-16.0) gm/dL Hct 42.7 (33.0-51.0) % Plt Count 188 (140-440) K/uL BMP 11/05/24 13:15 Sodium 137 Potassium 4.2 Chloride 100 Carbon Dioxide 32 BUN 15 Creatinine 0.7 Glucose 94 Calcium 9.4 Assessment and Plan Assessment and plan (1) Ataxia: Problem comment: - noted since approximately 10/26/24 - ddx: CVA vs other manifestation of cerebrovascular disease, metabolic abnormality, vitamin deficiency - MRI/MRA 11/06 am, therapy evaluations - plan pending results Status: Acute (2) Eosinophilia: Problem comment: - unclear significance, no recent travel history, asthma/allergies controlled, no skin lesions or rashes - ddx: normal variant, related to recent illness, atypical source (ie neurocysticercosis, ANCA-vasculitis) - MRI/MRA to help differentiate, repeat CBC w/diff 11/06 Status: Acute (3) Word finding difficulty: Problem comment: - noting this recently, imaging per above + outpatient speech f/u Status: Acute (4) Ischemic cerebrovascular accident (CVA): Problem comment: - stroke 01/09/2024 after cerebral angiogram at [place]; presenting symptom was R hand weakness - MRI on 01/13/24: numerous scattered foci of diffusion restriction in the left greater than right frontal cortex, bilateral centrum semiovale, left supra marginal gyrus compatible with acute ischemic infarcts. Infarcts involve the left precentral and postcentral gyrus. No pathologic susceptible artifacts. No midline shift. No hydrocephalus. 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, also noted on catheter angiogram 01/09/24 - December 2023: A1C 5.3, LDL 102 - TTE with bubble study 01/14: technically limited exam, shows normal global systolic function with EF 55-60%, mild mitral regurgitation - discharged to inpatient rehab at the [facility] following hospitalization at [place] in December - follows with [facility] - currently on aspirin daily, discontinued Crestor secondary to muscle pain Status: Acute Plan - per above - Loyd updated at bedside, questions answered
[2024-11-05] MEDS: LIDOCAINE 5% PATCH 1 PATCH TRANSDERMA (20:08)
[2024-11-05 20:35] LABS: Magnesium* 1.9 mg/dL (1.5-2.6)
[2024-11-05] MEDS: levETIRAcetam 500 MG TABLET 375 MG PO (21:13)
[2024-11-05] MEDS: SODIUM CHLORIDE 0.9 % (FLUSH) 10 ML SYRINGE 5 ML IVF (21:13)
[2024-11-05] MEDS: TRAZODONE HCL 50 MG TABLET 100 MG PO (21:13)
--- NOTE | 2024-11-05 22:11 | PC.NURSE ---
End of Shift: Patient admitted to 279. Pleasant and cooperative. Afebrile. C/o headache 6/0. Up to bathroom and chair with SBA. Tolerating regular diet with no nausea.
[2024-11-06 02:31] VITALS: BP 119/69; PULSE 74; RESP 16; TEMP 36.4; O2SAT 93
--- NOTE | 2024-11-06 06:12 | PC.NURSE ---
End of shift: Pt AxOx4, cooperative, pleasant. Neuros intact. VSS on RA. Pt denies pain/headache/nausea/dizziness. Pt tolerating reg diet/fluids well. Pt able to sleep for majority of the shift. Continent of the bladder, SBA when up. Pt appears resting with call light in reach.
[2024-11-06 06:50] LABS: Basophils Absolute Auto 0.05 K/uL (0.00-0.30); Basophils Percent Auto 0.6 % (0.0-3.0); Eosinophils Percent Auto 31.8 % (0.0-7.0); Hematocrit 42.1 % (33.0-51.0); Hemoglobin* 13.6 gm/dL (12.0-16.0); Immature Granulocytes Abs Auto 0.01 K/uL (0.00-0.30); Immature Granulocytes Pct Auto 0.1 %; Lymphocytes Percent Auto 27.7 % (20-44); Mean Corpuscular HGB Conc 32 gm/dL (32-36); Mean Corpuscular Hemoglobin 30 pg (26-34); Mean Corpuscular Volume 94 fL (80-100); Monocytes Percent Auto 4.6 % (0.0-11.0); Neutrophils Percent Auto 35.2 % (42.0-72.0); Platelet Count* 180 K/uL (140-440); RDW Coefficient of Variation % 12.5 % (11.5-15.5); Red Blood Count 4.49 m/uL (4.00-5.20); White Blood Count* 8.31 K/uL (4.50-11.00)
[2024-11-06 07:00] VITALS: BP 128/70; PULSE 71; RESP 16; TEMP 36.7; O2SAT 96
[2024-11-06 07:15] LABS: Albumin* 4.2 g/dL (3.3-5.0)
[2024-11-06 07:16] LABS: Chloride* 103 mmol/L (96-114); Potassium* 4.3 mmol/L (3.6-5.1); Sodium* 139 mmol/L (135-149)
[2024-11-06 07:18] LABS: Alkaline Phosphatase* 84 U/L (40-150); Anion Gap 7 mEq/L (7-15); Aspartate Amino Transferase* 23 U/L (12-35); Bilirubin Total* 1.3 mg/dL (0.1-1.5); Blood Urea Nitrogen* 18 mg/dL (5-24); Carbon Dioxide* 29 mmol/L (20-32); Creatinine* 0.8 mg/dL (0.5-1.5); Est. Creatinine Clearance* 86.75; Estimated Glomerular Filt Rate 91 ml/min; Total Protein* 6.8 g/dL (6.0-8.3)
[2024-11-06 07:19] LABS: Alanine Aminotransferase* 18 U/L (4-35); Calcium* 9.3 mg/dL (8.4-10.6); Glucose* 90 mg/dL (60-115)
[2024-11-06 07:22] LABS: Slide Review Reflex No
--- NOTE | 2024-11-06 09:14 | PM.IMPN1 ---
Progress Note: A&P Assessment and plan (1) Ataxia: Problem details: - noted since approximately 10/26/24 - ddx: CVA vs other manifestation of cerebrovascular disease, metabolic abnormality, vitamin deficiency - MRI/MRA 11/06. Negative for acute findings. - She had a similar acute episode last fall without a conclusive diagnosis. Status: Acute (2) Eosinophilia: Problem details: - unclear significance, no recent travel history, asthma/allergies controlled, no skin lesions or rashes - ddx: --Parasitic (no risk factors); stool ova and parasite exam pending --HES (ESR normal); awaiting morning cortisol, ACTH, echo and peripheral smear --DRESS (physically doesn't fit - no rash, fever, facial edema. No LION or transaminitis - but has med risk factors: antiepileptics, recent antibiotics) --EGPA (has asthma, no specific rhinitis, peripheral neuropathy, skin lesions); vasculitis panel pending --viral etiology; labyrinthitis? PT and OT are working with her. Status: Acute (3) Word finding difficulty: Problem details: - noting this recently, imaging per above + outpatient speech f/u Status: Acute (4) Ischemic cerebrovascular accident (CVA): Problem details: - stroke 01/09/2024 after cerebral angiogram at [place]; presenting symptom was R hand weakness - MRI on 01/13/24: numerous scattered foci of diffusion restriction in the left greater than right frontal cortex, bilateral centrum semiovale, left supra marginal gyrus compatible with acute ischemic infarcts. Infarcts involve the left precentral and postcentral gyrus. No pathologic susceptible artifacts. No midline shift. No hydrocephalus. 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, also noted on catheter angiogram 01/09/24 - December 2023: A1C 5.3, LDL 102 - TTE with bubble study 01/14: technically limited exam, shows normal global systolic function with EF 55-60%, mild mitral regurgitation - discharged to inpatient rehab at the [facility] following hospitalization at [facility] in December - follows with [facility] - currently on aspirin daily, discontinued Crestor secondary to muscle pain Status: Acute (5) Mild persistent asthma: Status: Acute (6) Arteriovenous fistula: Problem details: History of left-sided pulsatile tinnitus and an enlarged left occipital artery by CTA 01/09/24 catheter angiogram at [facility] shows left sigmoid dural arteriovenous fistula, also noted on CT head 01/13/24 Status: Acute Subjective Date Seen: 11/06/24 Interval history: Daily Progress Note - Hospital Medicine #: 2 CC: known complex neuro hx with new balance, dizziness, headache and eosinophilia. 24 HOUR UPDATE: About the same. became acutely nauseated with OT this morning. Notable Labs, Micro, Rads, Interventions: Vitals stable. CBC is normal with exceptional - 31.8% (up from 19.3%) on auto differential - 1.70# up to 2.60# -ESR and CRP not elevated -peripheral smear ordered/pending Chemistries are normal -am cortisol, ACTH pending -Vasculitis panel pending MRA/MRI IMPRESSION: 1. No acute intracranial abnormality. 2. Mild hemosiderin staining within the left central sulcus, potentially related to remote traumatic insult. Small susceptibility inseparable from the left perisylvian cortex may represent chronic hemorrhage or mineralization and is associated with minimal adjacent parenchymal gliosis. 3. Few punctate FLAIR hyperintensities in the supratentorial white matter are nonspecific, though most typical for sequelae of migraine headaches or minimal chronic microvascular ischemic changes. 4. Punctate signal abnormality in the inferior left cerebellar hemisphere may represent a chronic lacunar infarction or prominent perivascular space. 5. Unremarkable MRA of the head and neck. ECHO 01/07 TLE. but normal LV size and thickness. normal EF. no valve abnormalities. CTA 09/08 Redemonstrated mosaic attenuation which is similar to prior allowing differences in lung volumes, with mild scattered cystic change. No suspicious nodules or infiltrates. No pleural effusions, pleural thickening, or pneumothorax. Objective: looks tired; a little uneasy/cautious - regarding her balance, walker beside her in the chair Vitals: see above Lungs: Clear. Cardiac: S1S2. Neuro: +nystagmus with horizontal gaze RUE mildly decreased strength; coordination Disposition/Potential discharge - 24 hours to determine stability of neuro changes; eosinophilia, etc Today I spent 50minutes seeing the patient, reviewing Expanse and EPIC notes/diagnostics, discussing the care plan with our care time that includes social work, PT/OT, pharmacy, RT, fci and documenting my impressions and plan in the medical record. Exam Const: Vital Signs, click to edit/add: Vital Signs - 24 hr 11/05/24 12:28 11/05/24 13:11 11/05/24 13:15 Temperature 98.2 F Pulse Rate Pulse Rate [Pulse Oximeter] 69 Pulse Rate [Right Pulse Oximeter] Respiratory Rate 16 10 L 16 Blood Pressure Blood Pressure [Le ft Arm] Blood Pressure [Ri ght Upper Arm] 137/95 H Pulse Oximetry 97 Oxygen Delivery Mn thod Room Air 11/05/24 13:29 11/05/24 13:30 11/05/24 13:31 Temperature Pulse Rate Pulse Rate [Pulse Oximeter] Pulse Rate [Right Pulse Oximeter] Respiratory Rate 12 11 L Blood Pressure 119/79 Blood Pressure [Le ft Arm] Blood Pressure [Ri ght Upper Arm] Pulse Oximetry 98 Oxygen Delivery Mn thod 11/05/24 14:37 11/05/24 14:45 11/05/24 15:00 Temperature Pulse Rate 61 65 Pulse Rate [Pulse Oximeter] Pulse Rate [Right Pulse Oximeter] Respiratory Rate 11 L 11 L 15 Blood Pressure Blood Pressure [Le ft Arm] Blood Pressure [Ri ght Upper Arm] Pulse Oximetry 97 95 Oxygen Delivery Mn thod 11/05/24 15:01 11/05/24 15:15 11/05/24 15:30 Temperature Pulse Rate 64 82 64 Pulse Rate [Pulse Oximeter] Pulse Rate [Right Pulse Oximeter] Respiratory Rate 19 21 12 Blood Pressure 124/83 Blood Pressure [Le ft Arm] Blood Pressure [Ri ght Upper Arm] Pulse Oximetry 94 96 96 Oxygen Delivery Mn thod 11/05/24 15:31 11/05/24 15:45 11/05/24 16:00 Temperature Pulse Rate 63 59 L 67 Pulse Rate [Pulse Oximeter] Pulse Rate [Right Pulse Oximeter] Respiratory Rate 13 11 L 8 L Blood Pressure 128/78 Blood Pressure [Le ft Arm] Blood Pressure [Ri ght Upper Arm] Pulse Oximetry 98 97 98 Oxygen Delivery Mn thod 11/05/24 16:01 11/05/24 16:15 11/05/24 16:30 Temperature Pulse Rate 67 70 71 Pulse Rate [Pulse Oximeter] Pulse Rate [Right Pulse Oximeter] Respiratory Rate 12 12 16 Blood Pressure 112/71 Blood Pressure [Le ft Arm] Blood Pressure [Ri ght Upper Arm] Pulse Oximetry 98 97 98 Oxygen Delivery Mn thod 11/05/24 16:31 11/05/24 17:31 11/05/24 19:00 Temperature 97.4 F L 97.9 F Pulse Rate 68 Pulse Rate [Pulse Oximeter] Pulse Rate [Right Pulse Oximeter] 65 72 Respiratory Rate 17 16 16 Blood Pressure 127/74 Blood Pressure [Le ft Arm] 147/70 H 121/70 Blood Pressure [Ri ght Upper Arm] Pulse Oximetry 99 97 95 Oxygen Delivery Me thod Room Air Room Air 11/05/24 23:00 11/05/24 23:00 11/06/24 02:31 Temperature 98 F 97.6 F Pulse Rate 75 Pulse Rate [Pulse Oximeter] Pulse Rate [Right Pulse Oximeter] 73 74 Respiratory Rate 16 16 Blood Pressure Blood Pressure [Le ft Arm] 110/66 119/69 Blood Pressure [Ri ght Upper Arm] Pulse Oximetry 94 93 Oxygen Delivery Me thod Room Air Room Air Labs Labs: Laboratory Results - last 24 hr 11/05/24 11/05/24 11/05/24 13:00 13:15 20:23 WBC 8.80 RBC 4.59 Hgb 14.0 Hct 42.7 MCV 93 MCH 31 MCHC 33 RDW Coeff of Bárbara 12.5 Plt Count 188 Neut % (Auto) 52.4 Lymph % (Auto) 22.6 Jackson % (Auto) 5.3 Eos % (Auto) 19.3 H Baso % (Auto) 0.3 Neut # (Auto) 4.60 Lymph # (Auto) 1.99 Jackson # (Auto) 0.50 Eos # (Auto) 1.70 H Baso # (Auto) 0.03 Abs Immat Gran (auto) 0.01 Imm/Tot Granulo (auto) 0.1 D-Dimer Quant (PE/DVT) 0.53 H Sodium 137 Potassium 4.2 Chloride 100 Carbon Dioxide 32 Anion Gap 5 L BUN 15 Creatinine 0.7 Estimated Creat Clear Estimated GFR 107 Glucose 94 Calcium 9.4 Magnesium 1.9 Total Bilirubin AST ALT Alkaline Phosphatase C-Reactive Protein 0.8 Total Protein Albumin TSH 2.830 SARS-CoV-2 (PCR) Negative SARS-CoV-2 Influenza Type A (PCR) Negative PCR FLU A Influenza Type B (PCR) Negative PCR FLU B RSV (PCR) Negative PCR RSV Lab Acknowledgement Test Added 11/06/24 06:38 WBC 8.31 RBC 4.49 Hgb 13.6 Hct 42.1 MCV 94 MCH 30 MCHC 32 RDW Coeff of Bárbara 12.5 Plt Count 180 Neut % (Auto) 35.2 L Lymph % (Auto) 27.7 Jackson % (Auto) 4.6 Eos % (Auto) 31.8 H Baso % (Auto) 0.6 Neut # (Auto) 2.90 Lymph # (Auto) 2.30 Jackson # (Auto) 0.40 Eos # (Auto) 2.60 H Baso # (Auto) 0.05 Abs Immat Gran (auto) 0.01 Imm/Tot Granulo (auto) 0.1 D-Dimer Quant (PE/DVT) Sodium 139 Potassium 4.3 Chloride 103 Carbon Dioxide 29 Anion Gap 7 BUN 18 Creatinine 0.8 Estimated Creat Clear 86.75 Estimated GFR 91 Glucose 90 Calcium 9.3 Magnesium Total Bilirubin 1.3 AST 23 ALT 18 Alkaline Phosphatase 84 C-Reactive Protein Total Protein 6.8 Albumin 4.2 TSH SARS-CoV-2 (PCR) Influenza Type A (PCR) Influenza Type B (PCR) RSV (PCR) Lab Acknowledgement
[2024-11-06] MEDS: levETIRAcetam 500 MG TABLET 375 MG PO ×2 (09:25→21:29)
[2024-11-06] MEDS: CETIRIZINE HCL 10 MG TABLET PO (09:25)
[2024-11-06] MEDS: ASPIRIN 81 MG TABLET EC 243 MG PO (09:26)
[2024-11-06] MEDS: LORazepam 0.5 MG TABLET PO (09:37)
[2024-11-06] MEDS: ONDANSETRON 2 MG/ML inj 4 MG IVP (09:41)
[2024-11-06 10:42] LABS: Erythrocyte SedimentationRate* 16 mm/hr (2-20)
[2024-11-06 11:00] VITALS: BP 124/79; PULSE 75; RESP 14; TEMP 36.7; O2SAT 92
[2024-11-06 12:00] LABS: Basophils Absolute Auto 0.05 K/uL (0.00-0.30); Basophils Percent Auto 0.5 % (0.0-3.0); Eosinophils Percent Auto 26.7 % (0.0-7.0); Hemoglobin* 13.8 gm/dL (12.0-16.0); Immature Granulocytes Abs Auto 0.01 K/uL (0.00-0.30); Immature Granulocytes Pct Auto 0.1 %; Immature Reticulocyte Fraction 12.4 % (3.0-15.9); Lymphocytes Absolute Auto 1.96 K/uL (0.90-2.90); Lymphocytes Percent Auto 20.6 % (20-44); Mean Corpuscular HGB Conc 33 gm/dL (32-36); Mean Corpuscular Hemoglobin 31 pg (26-34); Mean Corpuscular Volume 93 fL (80-100); Monocytes Percent Auto 4.9 % (0.0-11.0); Neutrophils Absolute Auto 4.49 K/uL (1.7-7.0); Neutrophils Percent Auto 47.2 % (42.0-72.0); Platelet Count* 191 K/uL (140-440); RDW Coefficient of Variation % 12.6 % (11.5-15.5); Red Blood Count 4.51 m/uL (4.00-5.20); Reticulocyte Hemoglobin Equivi 33.2 pg (29.0-35.0); Reticulocyte Percent 1.7 % (0.5-2.0); Reticulocytes Absolute 0.08 # (0.03-0.08); White Blood Count* 9.52 K/uL (4.50-11.00)
[2024-11-06 12:23] LABS: Slide Review Reflex No
[2024-11-06] MEDS: ACETAMINOPHEN 325 MG TABLET 975 MG PO (14:34)
[2024-11-06 15:00] VITALS: BP 117/55; PULSE 79; RESP 16; TEMP 36.4; O2SAT 93
--- NOTE | 2024-11-06 18:51 | PC.NURSE ---
End of Shift: The patient is pleasant and alert and orientated, RUE weakness is noted although it is mild (form past CVA). Reports mild dizziness when ambulating. Nystagmus is noted bilaterally as well. Reported a headache and nausea this afternoon. SBA w/ GB and RW due to balance issue. Call light within reach, appetite is adequate. Jackie RIBEIRO BSN
[2024-11-06 19:00] VITALS: BP 118/70; PULSE 75; RESP 16; TEMP 36.7; O2SAT 92
[2024-11-06] MEDS: LIDOCAINE 5% PATCH 1 PATCH TRANSDERMA (19:11)
[2024-11-06] MEDS: KETOROLAC 15 MG/ML inj IVP (19:46)
[2024-11-06] MEDS: TRAZODONE HCL 50 MG TABLET 100 MG PO (21:29)
[2024-11-06] MEDS: CITALOPRAM HYDROBROMIDE 20 MG TABLET 5 MG PO (21:29)
[2024-11-06] MEDS: MAGNESIUM OXIDE 400 MG TABLET PO (21:29)
[2024-11-06] MEDS: SODIUM CHLORIDE 0.9 % (FLUSH) 10 ML SYRINGE 5 ML IVF (21:33)
[2024-11-06 23:00] VITALS: BP 127/73; PULSE 70; PULSE 72; PULSE 75; RESP 16; TEMP 36.5; O2SAT 94
[2024-11-07 03:00] VITALS: PULSE 67; RESP 14
[2024-11-07 06:45] LABS: Basophils Percent Auto 0.3 % (0.0-3.0); Eosinophils Percent Auto 37.5 % (0.0-7.0); Hematocrit 38.7 % (33.0-51.0); Hemoglobin* 12.6 gm/dL (12.0-16.0); Immature Granulocytes Pct Auto 0.2 %; Lymphocytes Percent Auto 19.6 % (20-44); Mean Corpuscular HGB Conc 33 gm/dL (32-36); Mean Corpuscular Hemoglobin 31 pg (26-34); Mean Corpuscular Volume 94 fL (80-100); Monocytes Percent Auto 5.1 % (0.0-11.0); Neutrophils Percent Auto 37.3 % (42.0-72.0); Platelet Count* 181 K/uL (140-440); RDW Coefficient of Variation % 12.8 % (11.5-15.5); White Blood Count* 11.72 K/uL (4.50-11.00)
--- NOTE | 2024-11-07 06:50 | PC.NURSE ---
Pt alert, oriented and vitally stable. Pt states having a headache, pain rated 7/10. MD notified and one time does of Toradol given. Pt stated improvement. Pt up via SBA with walker, tolerates well. Pt in bed, appears to be resting, call light within reach.?
[2024-11-07 06:59] LABS: Slide Review Reflex No
[2024-11-07 07:11] LABS: Chloride* 102 mmol/L (96-114); Potassium* 4.3 mmol/L (3.6-5.1); Sodium* 138 mmol/L (135-149)
[2024-11-07 07:13] LABS: Creatinine* 0.8 mg/dL (0.5-1.5); Est. Creatinine Clearance* 86.75; Estimated Glomerular Filt Rate 91 ml/min
[2024-11-07 07:14] LABS: Anion Gap 8 mEq/L (7-15); Blood Urea Nitrogen* 31 mg/dL (5-24); Carbon Dioxide* 28 mmol/L (20-32)
[2024-11-07 07:15] LABS: Calcium* 9.4 mg/dL (8.4-10.6); Glucose* 92 mg/dL (60-115)
[2024-11-07 07:17] LABS: C Reactive Protein* 1.1 mg/dL (0.5-1.0)
[2024-11-07 07:25] VITALS: BP 111/66; PULSE 66; RESP 18; TEMP 36.4; O2SAT 93
[2024-11-07 08:25] VITALS: PULSE 77
--- NOTE | 2024-11-07 08:37 | CRLHL7_ITS ---
For Patients: As a result of the Cures Act, medical imaging exams and procedure reports are released immediately into your electronic medical record. You may view this report before your referring provider. If you have questions, please contact your health care provider. INDICATION: Asthma. Marked eosinophilia. Neuro changes. COMPARISON: The most recent available study of September 15, 2024 and more remotely, September 25, 2022 TECHNIQUE: PA and lateral views of the chest were acquired FINDINGS: TUBES AND LINES: None. HEART AND MEDIASTINUM: Mildly enlarged heart. Septal closure device noted. LUNGS AND PLEURAL SPACES: The lungs appear normal.The pleural spaces are unremarkable.The opacity near the right heart border is factitious and is due to a pectus deformity. This is unchanged. OSSEOUS STRUCTURES: Age-appropriate appearance. No acute focal finding.Pectus deformity IMPRESSION: No evidence of active pulmonary disease. Dictated by Miah Bella MD @ 11/07/2024 9:08:30 AM (Electronically Signed)
[2024-11-07] MEDS: levETIRAcetam 500 MG TABLET 375 MG PO (08:38)
[2024-11-07] MEDS: ASPIRIN 81 MG TABLET EC 243 MG PO (08:38)
[2024-11-07] MEDS: SODIUM CHLORIDE 0.9 % (FLUSH) 10 ML SYRINGE 5 ML IVF (08:39)
[2024-11-07] MEDS: PSYLLIUM HUSK (WITH SUGAR) 12 GM PACKET PO (08:39)
[2024-11-07] MEDS: CETIRIZINE HCL 10 MG TABLET PO (08:39)
[2024-11-07 10:54] LABS: PCR FLU A Negative PCR FLU A (Negative); PCR FLU B Negative PCR FLU B (Negative); PCR RSV Negative PCR RSV (Negative); SARS PCR* Negative SARS-CoV-2 (Negative)
[2024-11-07 11:08] VITALS: BP 122/77; PULSE 79; RESP 16; TEMP 36.7; O2SAT 92
--- NOTE | 2024-11-07 14:30 | PC.NURSE ---
Pt alert and oriented. Pt pleasant and cooperative. Pt up with SBA with gait belt and walker. Pt worked with PT/OT and cleared for D/C. Pt's IV removed; catheter intact. Lab results given to Pt with D/C paperwork for follow up with PCP.
--- NOTE | 2024-11-07 15:28 | PM.DS1 ---
DS: Providers Provider Date Seen: 11/07/24 Date of admission: 11/05/24 16:49 Primary care physician: EFRAÍN MAYA APRN, WIRELESS DEVELOPMENT MANAGER Admitting Clinician: Alicia Campa MD Consults: 11/05/24 18:51 Consult to Physical Therapy [CONS] Routine Comment: Reason(s) for PT Consult:: Evaluate and Treat Any Restrictions?:: No Restrictions 11/05/24 18:55 Consult to Occupational Therapy [CONS] Routine Comment: Reason(s) for OT Consult:: Evaluate and Treat Any Restrictions?:: No Restrictions Attending Physician on discharge: Alicia Campa MD Date of Discharge: 11/07/24 DS: Diagnosis Discharge Diagnosis (1) Ataxia: Status: Acute Problem details: - noted since approximately 10/26/24 - ddx: Ruled out acute CVA. Trying to connect eosinophilia with neuro changes-HES, DRESS, EGPA, rare parasitic infection, asthma and allergies - MRI/MRA 11/06. Negative for acute findings. - She had a similar acute episode last fall without a conclusive diagnosis. (2) Eosinophilia: Status: Acute Problem details: - unclear significance, no recent travel history, asthma/allergies controlled, no skin lesions or rashes - ddx: --Parasitic (no risk factors); stool ova and parasite exam pending --HES (ESR normal); awaiting morning cortisol, ACTH, echo and peripheral smear --DRESS (physically doesn't fit - no rash, fever, facial edema. No LION or transaminitis - but has med risk factors: antiepileptics, recent antibiotics) --EGPA (has asthma, no specific rhinitis, peripheral neuropathy, skin lesions); vasculitis panel pending --viral etiology; labyrinthitis? PT and OT are working with her. (3) Ischemic cerebrovascular accident (CVA): Status: Acute Problem details: - stroke 01/09/2024 after cerebral angiogram at [place]; presenting symptom was R hand weakness - MRI on 01/13/24: numerous scattered foci of diffusion restriction in the left greater than right frontal cortex, bilateral centrum semiovale, left supra marginal gyrus compatible with acute ischemic infarcts. Infarcts involve the left precentral and postcentral gyrus. No pathologic susceptible artifacts. No midline shift. No hydrocephalus. 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, also noted on catheter angiogram 01/09/24 - December 2023: A1C 5.3, LDL 102 - TTE with bubble study 01/14: technically limited exam, shows normal global systolic function with EF 55-60%, mild mitral regurgitation - discharged to inpatient rehab at the [facility] following hospitalization at [place] in December - follows with [facility] - currently on aspirin daily, discontinued Crestor secondary to muscle pain (4) Word finding difficulty: Status: Acute Problem details: - noting this recently, imaging per above + outpatient speech f/u (5) Hemiparesis of right dominant side as late effect of cerebrovascular disease: Status: Acute (6) Mild persistent asthma: Status: Acute (7) Arteriovenous fistula: Status: Acute Problem details: History of left-sided pulsatile tinnitus and an enlarged left occipital artery by CTA 01/09/24 catheter angiogram at [facility] shows left sigmoid dural arteriovenous fistula, also noted on CT head 01/13/24 DS: Summary Hospital Course Hospital Course: FINAL DIAGNOSIS/FOLLOW UP ISSUES: 1. Eosinophilia-several pending labs. She was made aware of this and will follow-up with her PCP. Continue outpatient workup. 2. Neuro changes that are nonspecific. This includes headache, ataxia, word-finding difficulties. This potentially could be perimenopause or menopause. Is there a connection to the eosinophilia? I have asked her to follow-up with her neuro group, her PCP. BRIEF HOSPITAL COURSE: Patient was admitted for 2 days. Synopsis of acute inpatient issues are outlined above. Chronic medical conditions with notable findings outlined above. It was not able to make a conclusive or unifying diagnosis for the patient. Her eosinophilia is definitely present and up trending at the point of discharge. Her chest x-ray was negative. All of her neuro imaging was negative. Her labs were generally reassuring. There is a sense of PTSD or anxiety related to her medical events from the spring. We also discussed perimenopause and not all things will come under the umbrella of caused from a previous stroke - I suggested that she follow-up on the labs that were still pending at discharge with her PCP. I recommended that she follow-up with Neuro. That potentially alleviating the stress of working and considering menopause as part of the etiology or would help her. Outpatient [place] has prevented past to help her. DISCHARGE MEDICATIONS: See Reconciled list - SIGNIFICANT CHANGES: No changes. Specific instructions to the patient and follow-up are outlined below. REVIEW OF SYSTEMS No new chest pain or dyspnea Pain controlled No voiding difficulties Tolerating diet challenge PHYSICAL EXAM: CONSTITUTIONAL: Conversive, good historian. A/O. Knows setting and context. GENERAL: Well-developed and above ideal body weight, in no respiratory distress. VITAL SIGNS: see record. HEENT: Sclerae are anicteric. No petechiae. CARDIAC: rhythm is regular. There is no S3 or rub. No harsh murmurs. Extremities show trace edema with symmetrical pulses. PULM: good air entry with no wheeze. NEURO: Speech is fluent. A brief neurologic exam is negative. SKIN: No rashes, petechiae, concerning changes PSYCHIATRIC: Euthymic. DISPOSITION: Home with Time spent on discharge 37 minutes. Time Spent with Patient Time attestation: Total time spent providing and/or coordinating discharge services: Exam Const: Vital Signs, click to edit/add: Vital Signs - 24 hr 11/06/24 19:00 11/06/24 23:00 11/06/24 23:00 Temperature 98.0 F Pulse Rate 70 Pulse Rate [Right Pulse Oximeter] 75 75 Respiratory Rate 16 16 Blood Pressure [Le ft Arm] 118/70 Pulse Oximetry 92 Oxygen Delivery Me thod Room Air 11/06/24 23:00 11/07/24 03:00 11/07/24 07:25 Temperature 97.7 F 97.5 F L Pulse Rate Pulse Rate [Right Pulse Oximeter] 72 67 66 Respiratory Rate 16 14 18 Blood Pressure [Le ft Arm] 127/73 111/66 Pulse Oximetry 94 93 Oxygen Delivery Me thod Room Air Room Air 11/07/24 07:25 11/07/24 08:25 11/07/24 11:08 Temperature 98.0 F Pulse Rate 77 Pulse Rate [Right Pulse Oximeter] 79 Respiratory Rate 18 16 Blood Pressure [Le ft Arm] 122/77 Pulse Oximetry 92 Oxygen Delivery Hi thod Room Air DS: Data Data Completed and Pending Labs on day of discharge: Labs from last 24 hours 11/07/24 11/07/24 10:12 06:08 WBC 11.72 H RBC 4.10 Hgb 12.6 Hct 38.7 MCV 94 MCH 31 MCHC 33 RDW Coeff of Bárbara 12.8 Plt Count 181 Neut % (Auto) 37.3 L Lymph % (Auto) 19.6 L Shawnee % (Auto) 5.1 Eos % (Auto) 37.5 H Baso % (Auto) 0.3 Neut # (Auto) 4.40 Lymph # (Auto) 2.30 Shawnee # (Auto) 0.60 Eos # (Auto) 4.40 H Baso # (Auto) 0.00 Abs Immat Gran (auto) 0.00 Imm/Tot Granulo (auto) 0.2 Sodium 138 Potassium 4.3 Chloride 102 Carbon Dioxide 28 Anion Gap 8 BUN 31 H Creatinine 0.8 Estimated Creat Clear 86.75 Estimated GFR 91 Glucose 92 Calcium 9.4 C-Reactive Protein 1.1 H SARS-CoV-2 (PCR) Negative SARS-CoV-2 Influenza Type A (PCR) Negative PCR FLU A Influenza Type B (PCR) Negative PCR FLU B RSV (PCR) Negative PCR RSV Discharge Plan Discharge Disposition: Home, Self-Care Date of Admission: 11/05/24 16:49 Attending Provider on Discharge: Hannah Gordillo Primary Care Provider: EFRAÍN MAYA RA Condition: Unchanged Anticipated Discharge Date/Time: 11/07/24 11:34 Discharge Medications: Continued cetirizine [Zyrtec] 10 mg tablet 10 mg PO DAILY albuterol sulfate 90 mcg/actuation HFA aerosol inhaler 2 puff inhalation Q4H PRN magnesium 250 mg tablet 250 mg PO HS citalopram 10 mg tablet 5 mg PO DAILY psyllium husk 3.4 gram/5.4 gram powder 1 tbsp PO DAILY Senna Plus 8.6-50 mg capsule 2 tab-cap PO BID PRN oxycodone 5 mg tablet 2.5 mg PO Q4H PRN lidocaine 4 % adhesive patch,medicated 1 patch TOPICAL Q24H Rx Instructions: Place 1 patch onto the skin every 24 hours To prevent lidocaine toxicity, patient should be patch free for 12 hrs daily. aspirin 81 mg Tablet,Delayed Release (Dr/Ec) 243 mg PO DAILY fluticasone furoate-vilanterol [Breo Ellipta] 200-25 mcg/dose blister with device 1 inh INHALATION DAILY trazodone 100 mg tablet 100 mg PO HS lorazepam 1 mg tablet 0.5 - 1 mg PO DAILY PRN (Reason: dizziness) levetiracetam [Keppra] 750 mg tablet 375 mg PO BID Discharge Orders: Discharge Order (Routine); Ordered 11/07/24 Ordered By: Hannah Gordillo Patient Education: Peripheral Neuropathy (ED) Additional Instructions: 1. You can email your disability forms to [email or web address]. editable pdf's work the best. 2. For peripheral neuropathy (burning hands/feet) - epsom salt soaks are easy and effective. Densensitation with cold, massage and different fabrics can help too. You can also ask about gabapentin at your f/u. 3. Your eosinophilia (presence of eosinophils in your bloodstream) is elevated and uptrending at discharge. Please take the following differential and lab results to your PCP for followup. Most Likely Diagnoses: 1.?Parasitic Infections (e.g., Helminth Infections):?Parasitic infections, particularly helminths, can cause marked eosinophilia. For example, Ascaris infection can lead to pulmonary symptoms and eosinophilia when larvae migrate through the lungs.?[1] NEG CHEST XRAY, OVA AND PARASITES PENDING 2.?Allergic Reactions:?Allergic reactions, including food allergies, can present with eosinophilia. The National [place] of Allergy and Infectious Diseases guidelines note that food-induced allergic reactions can cause a range of symptoms, including eosinophilia.[2] CONTINUE TO LOOK FOR TRIGGERS 3.?Eosinophilic Granulomatosis with Polyangiitis (EGPA):?EGPA, formerly known as Churg-Mihir syndrome, is characterized by asthma, eosinophilia, and systemic vasculitis. It can present with neurological symptoms such as headache and ataxia.[3] VASCULITIS PANAL IS PENDING 4.?Hypereosinophilic Syndrome (HES):?HES is a group of disorders characterized by persistent eosinophilia and organ damage. Neurological involvement, including headache and ataxia, can occur in HES.[4] PERIPHERAL BLOOD SMEAR, MORNING CORTISOL, ACTH, VASCULITIS PANAL PENDING. ECHO WAS NORMAL. 5.?Drug Reactions:?Certain drugs can induce eosinophilia and systemic symptoms, including neurological manifestations. Drug reaction with eosinophilia and systemic symptoms (DRESS) is a severe form of drug-induced hypersensitivity.[5] MAYBE KEPPRA? MAYBE RECENT DOXYCYCLINE? Most Important Not to Miss Diagnoses: 1.?Cerebral Toxoplasmosis:?In immunocompromised patients, cerebral toxoplasmosis can present with neurological symptoms and eosinophilia. Diagnosis involves serologic testing and imaging studies to identify characteristic lesions.[6] YOU ARE NOT CONSIDERED IMMUNOCOMPROMISED; I DID NOT GO HERE 2.?Cerebral Vasculitis:?Primary SUPERVISORY AIR INTERCEPT CONTROLLER vasculitis can present with headache, ataxia, and eosinophilia. Diagnosis typically involves imaging studies such as MRI or angiography, and sometimes brain biopsy.[7] NORMAL (LIONEL) IMAGING; NO NEW FINDINGS. SEQUELA OF CVA NOTED. 3.?Acute Leukemia:?Acute leukemia can present with marked eosinophilia and neurological symptoms. Diagnosis involves peripheral blood smear, bone marrow biopsy, and cytogenetic analysis.[8] NO, CBC WAS FINE. PERIPHERAL SMEAR IS PENDING. Silva Pieces of Additional History and/or Follow-Up Tests: 1.?Travel History:?To assess for potential parasitic infections. 2.?Medication History:?To identify any recent drug exposures that could cause eosinophilia. 3.?Allergy History:?To evaluate for potential allergic reactions. 4.?Immunocompromised Status:?To assess the risk for opportunistic infections like toxoplasmosis. 5.?Imaging Studies:?MRI or CT of the brain to evaluate for lesions suggestive of cerebral vasculitis or toxoplasmosis. 6.?Blood Tests:?Complete blood count with differential, serologic tests for parasitic infections, and specific tests for HES and EGPA. 7.?Bone Marrow Biopsy:?If leukemia is suspected, to confirm diagnosis and subtype. By systematically evaluating these factors, the differential diagnosis can be narrowed, and appropriate management can be initiated. Activity Level: No Restrictions and Activity as Tolerated Discharge Diet: Regular Follow Up Appointments: [facility] [Provider Group] (CALL YOUR NEUROLOGIST ON SATURDAY FOR A FOLLOW UP) EFRAÍN MAYA RA, MINER PLACER, WIRELESS DEVELOPMENT MANAGER [Primary Care Provider] - (NEXT AVAILABLE - PT CAN CALL ON SATURDAY) Forms: [employer] Info Instructions
[2024-11-07 21:16] LABS: Adrenocorticotropic Hormone 30.2 pg/mL (7.2-63.3)
[2024-11-07 23:08] LABS: Cortisol, Serum 13.8 ug/dL
[2024-11-08 19:27] LABS: ANCA IFA Pattern None Detected (None Detected); ANCA IFA Titer <1:20 (<1:20); Myeloperoxidase (MPO) Ab, IgG 0 AU/mL (0-19); Serine Proteinase 3 Ab IgG 0 AU/mL (0-19)
[2024-11-13 01:22] LABS: Ova and Parasite, Fecal Negative (Negative)
== END 2024-11-07 13:37 | disposition home or self-care (01) ==
LOC: ED 16:21 → MEDSURG 16:50
PROVIDERS: Family Medicine; Admitting Provider Family Medicine; Emergency Provider Emergency Medicine; PCP Nurse Practitioner; Visit Provider Family Medicine
DX: R27.0 Ataxia, unspecified (principal); D72.10 Eosinophilia, unspecified; R47.89 Other speech disturbances; I69.951 Hemiplegia and hemiparesis following unspecified cerebrovascular disease affecting right dominant side; J45.30 Mild persistent asthma, uncomplicated; I77.3 Arterial fibromuscular dysplasia; I77.0 Arteriovenous fistula, acquired; I34.0 Nonrheumatic mitral (valve) insufficiency; Z86.39 Personal history of other endocrine, nutritional and metabolic disease; G89.29 Other chronic pain; R51.9 Headache, unspecified; F41.9 Anxiety disorder, unspecified; G62.9 Polyneuropathy, unspecified; M79.7 Fibromyalgia; Z79.82 Long term (current) use of aspirin; Z86.79 Personal history of other diseases of the circulatory system
CPT/HCPCS: 36415; 70544; 70549; 70553; 71046; 80048; 80053; 82024; 82533; 83036; 83516; 83735; 84443; 85025; 85045; 85379; 85651; 86140; 87177; 87209; 87631; 93005; 93306; 94761; 96374; 96375; 97116; 97161; 97166; 97530; 97535; 99284; 99285; A9270; A9575; G0378; J1885; J2405

== ENCOUNTER 2024-11-08 11:12 | Emergency (ER) | payer OTHER, MEDICAID, SELFPAY ==
--- OUTSIDE RECORDS SUMMARY | 2024-11-08 11:15 | XMS_ITS | Encounter Summary ---
Author Organization [facility] Address [address] [place] [address] Care Team Providers Care Cryptologic Support Specialist Name Role Phone Winston Villatoro OD Unavailable [phone] Denise Woodson APRN TEACHING YOUNG Unavailable [phone] Denise Woodson APRN TEACHING YOUNG Primary Care Provider Usha Simon APRN TEACHING YOUNG Unavailable + [phone] Dangelo Salinas MD Unavailable Anastasia Stearns RN Unavailable [phone] Germaine Aleman [facility] Unavailable [phone] Lsia Zambrano MD Unavailable + [phone] Raul Hoyos MD Unavailable Joya Lira [facility] Unavailable [phone] [facility] Unavailable [phone] Fabi Coates MD Unavailable [phone] Robin Zepeda MD Unavailable [phone] Danna Cardenas PA-C Unavailable [phone] Felicita Desai RN Unavailable Unavailab Arthur Rios Unavailable [phone] Randy Maradiaga DO Unavailable + Tete Wang [...] How often do you attend amish or druze serv ices? 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 [place] [phone] Lisa Zambrano MD [address] [place] [address] 12/03/2024 7:00 AM CDT Virtual Visit [facility] Neurology [address] [phone] Randy Maradiaga [address] [id number] 12/09/2024 12:45 PM CDT Office Visit [facility] [address] [place] [address] [phone] Tete Wang MD [address] [place] [address] 12/09/2024 1:15 PM CDT Office Visit [facility] [address] [place] [address] [phone] Tete Wang MD [address] [place] [address] 120564 12/15/2024 3:00 PM CDT Virtual Visit [facility] [address] [facility] [place] [phone] Denise Woodson APRN TEACHING YOUNG [address] [facility] [place] [address] 01/19/2025 PRE VISIT [facility] Science [address] [phone] Any Joiner MD [address] [place] [address] [phone] *-*INCOMING RECORDS*-* 01/19/2025 3:00 PM CDT Orders Only [facility] Pulmonary Function Testing [address] [place] [address] 01/19/2025 4:00 PM CDT Office Visit [facility] Science [address] [phone] Any Joiner MD [address] [place] [address] [phone] 06/01/2025 11:15 AM CDT Appointment [facility] Imaging [address] [place] [address] Robin Zepeda MD [address] [place] [address] [phone] 06/04/2025 11:00 AM CDT Office Visit [facility] Neurosurgery [address] [phone] Robin Zepeda MD [address] [place] [address] Usha Simon APRN [address] [phone] documented as of this encounter Visit Diagnoses Not on filedocumented in this encounter Additional Health Concerns Infection Onset Date Last Indicated Resolved Time Rule Out COVID-19 09/13/2024 09/13/2024 09/13/2024 12:31 PM COCOA POWDER MIXER OPERATOR Assessment Noted Time PHQ-9 Depression Total Score: 5 03/17/20 24 9:45 AM CDT documented as of this encounter Care Teams Cryptologic Support Specialist Relationship Specialty Start Date End Date Winston Villatoro OD [facility] [place] [address] [place] [address] PCP - Ophthalmology Ophthalmology 02/11/13 Denise Woodson APRN TEACHING YOUNG [address] [place] [address] PCP - General Family Practice 09/21/20 Denise Woodson APRN TEACHING YOUNG [address] [place] [address] Assigned PCP 07/17/20 Usha Simon APRN TEACHING YOUNG [address] [facility], [place] [phone] Nurse Practitioner Neurological Surgery 01/24/24 Dangelo Salinas MD [address] [place], [place] [phone] Neurology 01/27/24 Anastasia Stearns, RN Lead Geotechnical Engineering Technician 02/06/24 Germaine Aleman, CHW Community Health Worker Primary Care - CC 02/18/24 Lisa Zambrano MD [address] [place] [id number] Assigned Heart and Vascular Provider 05/08/24 07/07/24 Raul Hoyos MD [address] [facility] [address] Assigned Neuroscience Provider 05/08/24 07/07/[address] [facility] [address] [place] [address] Pharmacist Pharmacist 05/25/[address] [facility] [address] [place] [address] Assigned MTM Pharmacist 06/08/24 Fabi Coates MD [address] [place] [address] [address] [place] [address] Genetics, Clinical 06/18/24 Robin Zepeda MD [address] [facility] [address] Assigned Neuroscience Provider 07/08/24 08/07/24 Danna Cardenas PA-C [address] [place] [address] Assigned Heart and Vascular Provider 07/08/24 Felicita Desai, GEMA Lead Geotechnical Engineering Technician 07/14/24 07/28/24 Arthur Salas [facility] [address] [address] Assigned Behavioral Health Provider 08/08/24 Randy Maradiaga DO [address]09 [place] [address] Assigned Neuroscience Provider 08/08/24 Tete Wang MD [address] [place], [place] [phone] Genetics, Clinical 10/30/24 documented as of this encounter
--- OUTSIDE RECORDS SUMMARY | 2024-11-08 11:15 | XMS_ITS | Encounter Summary ---
Author Organization [place] Address [address] [place] [address] Care Team Providers Care Head Sawyer Automatic Name Role Phone Winston Villatoro OD Unavailable [phone] Denise Woodson APRN MANUSCRIPTS ARCHIVIST Unavailable [phone] Denise Woodson APRN MANUSCRIPTS ARCHIVIST Primary Care Provider Usha Simon APRN MANUSCRIPTS ARCHIVIST Unavailable + [phone] Dangelo Salinas MD Unavailable Anastasia Stearns RN Unavailable [phone] Germaine Aleman [facility] Unavailable +[phone] Lisa Zambrano MD Unavailable + [phone] Raul Hoyos MD Unavailable Joya Lira [facility] Unavailable [phone] [facility] Unavailable +[phone] Fabi Coates MD Unavailable [phone] Robin Zepeda MD Unavailable [phone] Danna Cardenas PA-C Unavailable +[phone] Felicita Desai RN Unavailable Unavailab Artuhr Rios Unavailable +[phone] Randy Maradiaga DO Unavailable + Tete Wang MD Unavailable Encounter Details Date Type Department Care Team (Late st Contact Info) Description 05/21/2024 MyC Medical Advice [facility] [address] [place] [address] Qing Copeland Social History Tobacco [...] How often do you attend yarsani or church serv ices? 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 [place] [phone] Lisa Zambrano MD [address] [place] [id number] 12/03/2024 7:00 AM CDT Virtual Visit [facility] Neurology [address] [phone] Randy Maradiaga, [address] [address] 12/09/2024 12:45 PM CDT Office Visit [facility] [address] [place] [phone] Tete Wang MD [address] [place] [address] 12/09/2024 1:15 PM CDT Office Visit [facility] [address] [place] [address] [phone] Tete Wang MD [address] [place] [address] 12/15/2024 3:00 PM CDT Virtual Visit [facility] [address] [place] [phone] Denise Woodson APRN MANUSCRIPTS ARCHIVIST [address] [place] [place], [place] 2809568 01/19/2025 PRE VISIT [facility] [address] [phone] Any Joiner MD [address] [place] [address] 898825 *-*INCOMING RECORDS*-* 01/19/2025 3:00 PM CDT Orders Only [facility] Pulmonary Function Testing [address] [phone] 01/19/2025 4:00 PM CDT Office Visit [facility] [address] [phone] Any Joiner MD [address] [place] [address] 874975 06/01/2025 11:15 AM CDT Appointment [facility] [address] [facility] [address] [place] [phone] Robin Zepeda MD [address] [place] [address] 922745 06/04/2025 11:00 AM CDT Office Visit [address] [phone] Robin Zepeda MD [address] [place] [address] 962435 Usha Simon APRN MANUSCRIPTS ARCHIVIST [address] [place] [address] documented as of this encounter Visit Diagnoses Not on filedocumented in this encounter Additional Health Concerns Infection Onset Date Last Indicated Resolved Time Rule Out COVID-19 09/13/2024 09/13/2024 09/13/2024 12:31 PM CHAIR MECHANIC Assessment Noted Time PHQ-9 Depression Total Score: 5 03/17/20 24 9:45 AM CDT documented as of this encounter Care Teams Head Sawyer Automatic Relationship Specialty Start Date End Date Winston Villatoro OD [facility] [place] [address] [place] [address] PCP - Ophthalmology Ophthalmology 02/11/13 Denise Woodson APRN MANUSCRIPTS ARCHIVIST [address] [place] [address] PCP - General Family Practice 09/21/20 Denise Woodson APRN MANUSCRIPTS ARCHIVIST [address] [place] [address] Assigned PCP 07/17/20 Usha Simon APRN MANUSCRIPTS ARCHIVIST 909 [facility] [id number] [place] [address] Nurse Practitioner Neurological Surgery 01/24/24 Dangelo Salinas MD [address] [place] [address] Neurology 01/27/24 Anastasia Stearns, RN Lead Skip Operator 02/06/24 Germaine Aleman, CHW Community Health Worker Primary Care - CC 02/18/24 Lisa Zambraon MD 6401 [facility] [address] [place] [address] Assigned Heart and Vascular Provider 05/08/24 07/07/24 Raul Hoyos MD 909 [facility]121[address] [place] [address] Assigned Neuroscience Provider 05/08/24 07/07/[address] [facility] [address] [place] [address] Pharmacist Pharmacist 05/25/[address] [facility] [address] [place] [address] Assigned MTM Pharmacist 06/08/24 Fabi Coates MD [address] [place] [address] 75 [place] [address] Genetics, Clinical 06/18/24 Robin Zepeda MD [address] [place] 9118[address], [place] [address] Assigned Neuroscience Provider 07/08/24 08/07/24 Danna Cardenas PA-C 6405 [place] [address] Assigned Heart and Vascular Provider 07/08/24 Felicita Desai, RN Lead Skip Operator 07/14/24 07/28/24 Arthur Salas, [facility] [address] [place] [address] Assigned Behavioral Health Provider 08/08/24 Randy Maradiaga DO 909 [place] [address] Assigned Neuroscience Provider 08/08/24 Tete Wang MD 2450 [place] [address] Genetics, Clinical 10/30/24 documented as of this encounter
--- OUTSIDE RECORDS SUMMARY | 2024-11-08 11:15 | XMS_ITS | Encounter Summary ---
Author Organization [place] Address [address] [place] [address] Care Team Providers Care Temper Mill Roller Name Role Phone Winston Villatoro OD Unavailable [phone] Denise Woodson APRN PHOTOGRAPHIC EQUIPMENT MECHANIC Unavailable [phone] Denise Woodson APRN PHOTOGRAPHIC EQUIPMENT MECHANIC Primary Care Provider Usha Simon APRN PHOTOGRAPHIC EQUIPMENT MECHANIC Unavailable + [phone] Dangelo Salinas MD Unavailable Anastasia Stearns RN Unavailable Germaine Aleman [facility] Unavailable +[phone] Lisa Zambrano MD Unavailable + [phone] Raul Hoyos MD Unavailable [phone] Joya Lira [facility] Unavailable [phone] Joya Lira [facility] Unavailable [phone] Fabi Coates MD Unavailable [phone] Robin Zepeda MD Unavailable [phone] Danna Cardenas PA-C Unavailable [phone] Felicita Desai RN Unavailable Unavailab Arthur Rios Unavailable [phone] Randy Maradiaga DO Unavailable + Tete Wang MD Unavailable +[phone] Encounter Details Date Type Department Care Team (Late st Contact Info) Description 06/28/2024 MyC Medical Advice [facility] [address] [place] [address] Denise Woodson ELECTRONIC EQUIPMENT SET UP OPERATOR [facility] [address] [place] [address] Social History Tobacco Use Types [...] How often do you attend advent or confucianist serv ices? 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 Pt responded and would like to trial celexa again at a low dose. Pharmacy T'd up. CHELSEY Luke, RN [facility] 07/02/2024 at 9:48 AM * Telephone [...] to provider to advise. Qing Copeland Lead Concrete Inspector [facility] documented in this encounter Plan of Treatment Upcoming Encounters Date Type Department Care Team (Late st Contact Info) Description 11/17/2024 2:30 PM BOTTLE CASER Virtual Visit [facility] [address] [place] [address] Denise Woodson APRN PHOTOGRAPHIC EQUIPMENT MECHANIC [address] [place], [place] [phone] 12/01/2024 4:00 PM CDT Virtual Visit [facility] [place] [address] [place] [phone] Lisa Zambrano MD [address] [place] [address] 12/03/2024 7:00 AM CDT Virtual Visit [facility] Neurology [address] 3rd [place] [phone] Randy Maradiaga, [address] 458535 12/09/2024 12:45 PM CDT Office Visit [facility] [address] [place] [address] [phone] Tete Wang MD [address] [place] [address] 842774 12/09/2024 1:15 PM CDT Office Visit [facility] [address] [place] [address] [phone] Tete Wagn MD [address] [place] [address] 521874 12/15/2024 3:00 PM CDT Virtual Visit [facility] [address] [place] [phone] Denise Woodson APRN [facility] [address] [place] [address] 9915568 01/19/2025 PRE VISIT [facility] [address] [phone] Any Joiner MD [address] [place] [address] *-*INCOMING RECORDS*-* 01/19/2025 3:00 PM CDT Orders Only [facility] Pulmonary Function Testing [address] [phone] 01/19/2025 4:00 PM CDT Office Visit [facility] [address] [phone] Any Joiner MD [address] [place] [address] 562755 06/01/2025 11:15 AM CDT Appointment [facility] [address] [place] [phone] Robin Zepeda MD [address] [place] [address] 06/04/2025 11:00 AM CDT Office Visit [facility] Neurosurgery [address] [phone] Robin Zepeda MD [address] [place] [address] Usha Simon APRN [address] [address] documented as of this encounter Visit Diagnoses Not on filedocumented in this encounter Additional Health Concerns Infection Onset Date Last Indicated Resolved Time Rule Out COVID-19 09/13/2024 09/13/2024 09/13/2024 12:31 PM BOTTLE CASER Assessment Noted Time PHQ-9 Depression Total Score: 5 03/17/20 24 9:45 AM CDT documented as of this encounter Care Teams Temper Mill Roller Relationship Specialty Start Date End Date Winston Villatoro OD [facility] [place] [address] [place] [address] PCP - Ophthalmology Ophthalmology 02/11/13 Denise Woodson APRN PHOTOGRAPHIC EQUIPMENT MECHANIC [address] [place] [address] PCP - General Family Practice 09/21/20 Denise Woodson APRN PHOTOGRAPHIC EQUIPMENT MECHANIC [address] [place] [address] Assigned PCP 07/17/20 Usha Simon APRN PHOTOGRAPHIC EQUIPMENT MECHANIC [address] 444[address] Nurse Practitioner Neurological Surgery 01/24/24 Dangelo Salinas MD [address] [place], [place] [phone] Neurology 01/27/24 Anastasia Stearns, RN Lead Delicatessen Slicer 02/06/24 Germaine Aleman, W Community Health Worker Primary Care - CC 02/18/24 Lisa Zambrano MD [address] [place] 187405 Assigned Heart and Vascular Provider 05/08/24 07/07/24 Raul Hoyos MD [address] 657995 Assigned Neuroscience Provider 05/08/24 07/07/24 Joya Lira [facility] [address] [place] [address] Pharmacist Pharmacist 05/25/24 Soraya Joya [facility] [address] [facility] [place] [address] Assigned MTM Pharmacist 06/08/24 Fabi Coates MD [address] [place] [address] 75 [place], [place] 804265 Genetics, Clinical 06/18/24 Robin Zepeda MD [address] [place] [address] [place], [place] 794075 Assigned Neuroscience Provider 07/08/24 08/07/24 Danna Cardenas PA-C [address] [place] [address] 177335 Assigned Heart and Vascular Provider 07/08/24 Felicita Desai RN Lead Delicatessen Slicer 07/14/24 07/28/24 Arthur Salas [facility] [address] [place] [address] Assigned Behavioral Health Provider 08/08/24 Randy Maradiaga DO [address] [place] [address] 258385 Assigned Neuroscience Provider 08/08/24 Tete Wang MD 2450 [place], [place] 934364 Genetics, Clinical 10/30/24 documented as of this encounter
--- OUTSIDE RECORDS SUMMARY | 2024-11-08 11:15 | XMS_ITS | Encounter Summary ---
Author Organization [place] Address [address] [place] [address] Care Team Providers Care Veneer Marker Name Role Phone Winston Villatoro OD Unavailable [phone] Denise Woodson APRN DATA CAPTURE SPECIALIST Unavailable [phone] Denise Woodson APRN DATA CAPTURE SPECIALIST Primary Care Provider Usha Simon APRN DATA CAPTURE SPECIALIST Unavailable + [phone] Dangelo Salinas MD Unavailable Anastasia Stearns RN Unavailable Germaine Aleman [facility] Unavailable [phone] Lisa Zambrano MD Unavailable + [phone] Raul Hoyos MD Unavailable Joya Lira [facility] Unavailable [phone] Joya Lira [facility] Unavailable [phone] Fabi Coates MD Unavailable [phone] Robin Zepeda MD Unavailable [phone] Danna Cardenas PA-C Unavailable +[phone] Felicita Desai RN Unavailable Unavailab Arthur Rios Unavailable [phone] Randy Maradiaga DO Unavailable + Tete Wang MD Unavailable [phone] Encounter Details Date Type Department Care Team (Late st Contact Info) Description 05/25/2024 Ajay Medical Advice [facility] Neurology Clinic [address] 3rd [place] [address] Raul Hoyos MD [address] [place] [address] [id number] [place], [place] [id number] Social History Tobacco Use Types Packs/Day Years [...] How often do you attend holiness or congregational serv ices? Never 02/28/2024 Do [...] Answer Date Recorded PHQ-2 Score 2 05/05/2024 [facility] [place] of Occupat ional Health - Occupational Stress [...] building, in an overnight snf, or couch-surfing.) No 05/19/2024 Are you worried [...] on file Legal Sex Female 4:05 AM COMMODITY LOAN CLERK Gender Identity Not on file Sexual [...] st Contact Info) Description 11/17/2024 2:30 PM COMMODITY LOAN CLERK [facility] [address] [place] [phone] Denise WoodsonBARRERA CNP [address] [place], [place] 4897768 12/01/2024 4:00 PM CDT Virtual Visit [facility] [address] [place] [phone] Lisa Zambrano MD [address] [place] 918255 12/03/2024 7:00 AM CDT Virtual Visit [facility] Neurology [address] [phone] Randy Maradiaga, [address] [address] 12/09/2024 12:45 PM CDT Office Visit [facility] [address] [place] [address] [phone] Tete Wang MD [address] [place] [address] 279694 12/09/2024 1:15 PM CDT Office Visit [facility]ty Clinic [address] [place], [place] [address] [address] [phone] Tete Wang MD [address] [place] [address] 154594 12/15/2024 3:00 PM CDT Virtual Visit [facility] [address] [place] [address] Denise Woodson APRN [facility] [address] [place], [place] 7840868 01/19/2025 PRE VISIT [facility] [address] [phone] Any Joinre MD [address] [place] [address] 608195 *-*INCOMING RECORDS*-* 01/19/2025 3:00 PM CDT Orders Only [facility] Pulmonary Function Testing [address] [phone] 01/19/2025 4:00 PM CDT Office Visit [facility] Science [address] [phone] Any Joiner MD [address] [place] [address] 018645 06/01/2025 11:15 AM CDT Appointment [facility] [address] [facility] [address] [place] [phone] Robin Zepeda MD [address] [place] [address] 06/04/2025 11:00 AM CDT Office Visit [address] [phone] Robin Zepeda MD [address] [place] [address] Usha Simon APRN DATA CAPTURE SPECIALIST [address] [address] documented as of this encounter Visit Diagnoses Not on filedocumented in this encounter Additional Health Concerns Infection Onset Date Last Indicated Resolved Time Rule Out COVID-19 09/13/2024 09/13/2024 09/13/2024 12:31 PM COMMODITY LOAN CLERK Assessment Noted Time PHQ-9 Depression Total Score: 5 03/17/20 24 9:45 AM CDT documented as of this encounter Care Teams Veneer Marker Relationship Specialty Start Date End Date Winston Villatoro OD [facility] [place] [address] [place] [address] PCP - Ophthalmology Ophthalmology 02/11/13 Denise Woodson APRN DATA CAPTURE SPECIALIST [address] [place] [address] PCP - General Family Practice 09/21/20 Denise Woodson APRN DATA CAPTURE SPECIALIST [address] [place] [address] Assigned PCP 07/17/20 Usha Simon APRN DATA CAPTURE SPECIALIST [address] [place] [address] Nurse Practitioner Neurological Surgery 01/24/24 Dangelo Salinas MD [address] [place] [address] Neurology 01/27/24 Anastaisa Stearns, RN Lead Business Office Manager 02/06/24 Germaine Aleman, [facility] Community Health Worker Primary Care - CC 02/18/24 Lisa Zambrano MD 6405 [facility] [address] [place] [address] Assigned Heart and Vascular Provider 05/08/24 07/07/24 Rual Hoyos MD [address] [address] Assigned Neuroscience Provider 05/08/24 07/07/24 Joya Lira [facility] [address] [facility] [address] Pharmacist Pharmacist 05/25/24 Joya Lira [facility] [address] [place] [address] Assigned MTM Pharmacist 06/08/24 Fabi Coates MD [address] [place] [address] 75 [place] [address] Genetics, Clinical 06/18/24 Robin Zepeda MD [address] [address] Assigned Neuroscience Provider 07/08/24 08/07/24 Danna Cardenas PA-C 6405 [place] [address] Assigned Heart and Vascular Provider 07/08/24 Felicita Desai, RN Lead Business Office Manager 07/14/24 07/28/24 Arthur Salas, [facility] [address] [place] [address] Assigned Behavioral Health Provider 08/08/24 Randy Maradiaga DO 909 [place], [place] 697895 Assigned Neuroscience Provider 08/08/24 Tete Wang MD 2450 [place] [address] Genetics, Clinical 10/30/24 documented as of this encounter
--- OUTSIDE RECORDS SUMMARY | 2024-11-08 11:15 | XMS_ITS | Encounter Summary ---
Author Organization [place] Address [address] [place] [address] Care Team Providers Care Roller Stainer Name Role Phone Winston Villatoro OD Unavailable [phone] Denise Woodson APRN CANDY PULLER Unavailable +[phone] Denise Woodson APRN CANDY PULLER Primary Care Provider Usha Simon APRN CANDY PULLER Unavailable + [phone] Dangelo Salinas MD Unavailable Anastasia Stearns RN Unavailable +[phone] Germaine Aleman [facility] Unavailable +[phone] Lisa Zambrano MD Unavailable + [phone] Raul Hoyos MD Unavailable Joya Lira [facility] Unavailable +[phone] Joya Lira [facility] Unavailable +[phone] Fabi Coates MD Unavailable [phone] Robin Zepeda MD Unavailable [phone] Danna Cardenas PA-C Unavailable +[phone] Felicita Desai RN Unavailable Unavailab Arthur Rios Unavailable +[phone] Randy Maradiaga DO Unavailable + Tete Wang MD Unavailable Encounter Details Date Type Department Care Team (Late st Contact Info) Description 05/13/2024 Ajay Medical Advice [facility] Care Coordination [facility] [address] [place] [phone] Anastasia Stearns, RN Social History Tobacco Use [...] How often do you attend yazidi or moravian serv ices? Never 02/28/2024 Do [...] Answer Date Recorded PHQ-2 Score 2 05/05/2024 [facility] [place] of Occupat ional Health - Occupational Stress [...] file Legal Sex Female 4:05 AM AIRCRAFT MAGNETO MECHANIC Gender Identity Not on file Sexual [...] st Contact Info) Description 11/17/2024 2:30 PM AIRCRAFT MAGNETO MECHANIC Virtual Visit [facility] [address] [place] [phone] Denise Woodson APRN CANDY PULLER [address] [place] [address] 12/01/2024 4:00 PM CDT Virtual Visit [facility] [place] [address] [place] [phone] Lisa Zambrano MD [address] [place] [id number] 12/03/2024 7:00 AM CDT Virtual Visit [facility] Neurology [address] [phone] Randy Maradiaga, [address] [address] 12/09/2024 12:45 PM CDT Office Visit [facility] [address] [place] [address] [phone] Tete Wang MD [address] [place] [address] 12/09/2024 1:15 PM CDT Office Visit [facility] [address] [place] [phone] Tete Wang MD [address] [place] [address] 12/15/2024 3:00 PM CDT Virtual Visit [facility] [address] [place] [phone] Denise Woodson APRN CANDY PULLER [address] [place], [place] [phone] 01/19/2025 PRE VISIT [facility] [address] [phone] Any Joiner MD [address] [place] [address] 851135 *-*INCOMING RECORDS*-* 01/19/2025 3:00 PM CDT Orders Only [facility] Pulmonary Function Testing [address] [phone] 01/19/2025 4:00 PM CDT Office Visit [facility] [address] [phone] Any Joiner MD [address] [place] [address] [phone] 06/01/2025 11:15 AM CDT Appointment [facility] Imaging [address] [facility] [address] [place] [phone] Robin Zepeda MD [address] [place] [address] 531015 06/04/2025 11:00 AM CDT Office Visit [facility] Neurosurgery [address] [phone] Robin Zepeda MD [address] [place] [address] 560235 Usha Simon APRN CANDY PULLER [address] [place] [address], [place] [address] documented as of this encounter Visit Diagnoses Not on filedocumented in this encounter Additional Health Concerns Infection Onset Date Last Indicated Resolved Time Rule Out COVID-19 09/13/2024 09/13/2024 09/13/2024 12:31 PM AIRCRAFT MAGNETO MECHANIC Assessment Noted Time PHQ-9 Depression Total Score: 5 03/17/20 24 9:45 AM CDT documented as of this encounter Care Teams Roller Stainer Relationship Specialty Start Date End Date Winston Villatoro OD [facility] [address] [place] [address] PCP - Ophthalmology Ophthalmology 02/11/13 Denise Woodson APRN CANDY PULLER [address] [place] [address] PCP - General Family Practice 09/21/20 Denise Woodson APRN CANDY PULLER [address] [place] [address] Assigned PCP 07/17/20 Usha Simon APRN CANDY PULLER [address] [address] [address] Nurse Practitioner Neurological Surgery 01/24/24 Dangelo Salinas MD [address] [place], [place] [phone] Neurology 01/27/24 Anastasia Stearns, RN Lead Retort Furnace Helper 02/06/24 Germaine Aleman, CHW Community Health Worker Primary Care - CC 02/18/24 Lisa Zambrano MD 6405 [facility] [address] [place] [address] Assigned Heart and Vascular Provider 05/08/24 07/07/24 Raul Hoyos MD [address] [facility] [place] [address] Assigned Neuroscience Provider 05/08/24 07/07/24 Joya Lira [facility] [address] [address] Pharmacist Pharmacist 05/25/24 Joya Lira [facility] [address] [place] [address] Assigned MTM Pharmacist 06/08/24 Fabi Coates MD [address] [place] [address] 75 [place] [address] Genetics, Clinical 06/18/24 Robin Zepeda MD [address] [facility] [place] [address] Assigned Neuroscience Provider 07/08/24 08/07/24 Danna Cardenas PA-C 6405 [place] [address] Assigned Heart and Vascular Provider 07/08/24 Felicita Desai, RN Lead Retort Furnace Helper 07/14/24 07/28/24 Arthur Salas [facility]CHNIC[facility] [address] [place] [address] Assigned Behavioral Health Provider 08/08/24 Randy Maradiaga DO 909 [place] [address] Assigned Neuroscience Provider 08/08/24 Tete Wang MD [facility] [place] [address] Genetics, Clinical 10/30/24 documented as of this encounter
--- OUTSIDE RECORDS SUMMARY | 2024-11-08 11:15 | XMS_ITS | Encounter Summary ---
Author Organization [place] Address [address] [place] [address] Care Team Providers Care Fan Mail Editor Name Role Phone Winston Villatoro OD Unavailable [phone] Denise Woodson APRN DIGITAL MEDIA INTERN Unavailable [phone] Denise Woodson APRN DIGITAL MEDIA INTERN Primary Care Provider Usha Simon APRN DIGITAL MEDIA INTERN Unavailable + [phone] Dangelo Salinas MD Unavailable Anastasia Stearns RN Unavailable Germaine Aleman [facility] Unavailable [phone] Lisa Zambrano MD Unavailable + [phone] Raul Hoyos MD Unavailable Joya Lira [facility] Unavailable [phone] Joya Lira [facility] Unavailable +[phone] Fabi Coates MD Unavailable [phone] Robin Zepeda MD Unavailable [phone] Danna Cardenas PA-C Unavailable +[phone] Fleicita Desai RN Unavailable Unavailab Arthur Rios Unavailable +[phone] Randy Maradiaga DO Unavailable + Tete Wang MD Unavailable [phone] Encounter Details Date Type Department Care Team (Late st Contact Info) Description 05/27/2024 MyC Medical Advice Se [facility] [address], [address] [place] [address] Rohit Barcenas MD [address] [facility] 295 [place] [address] Social History Tobacco Use Types [...] How often do you attend restorationist or lutheran serv ices? Never 02/28/2024 Do [...] Answer Date Recorded PHQ-2 Score 2 05/05/2024 [facility] [place] of Occupat ional Health - Occupational Stress [...] on file Legal Sex Female 4:05 AM WASTE SPECIALIST Gender Identity Not on file Sexual [...] st Contact Info) Description 11/17/2024 2:30 PM WASTE SPECIALIST Virtual Visit [facility] [address] [place] [phone] Denise Woodson APRN DIGITAL MEDIA INTERN [address] [place], [place] 9[address] 12/01/2024 4:00 PM CDT Virtual Visit [facility] Vascular [facility] [address] [place] [phone] Lisa Zambrano MD [address] [place] [address] 12/03/2024 7:00 AM CDT Virtual Visit [facility] Neurology [address] [phone] Randy Maradiaga, [address] 9847[address] 12/09/2024 12:45 PM CDT Office Visit [facility] [address] [place] [address] [phone] Tete Wang MD [address] [place] [address] 069864 12/09/2024 1:15 PM CDT Office Visit [facility] [address] [place] [address] [phone] Tete Wang MD [address] [place] [address] 797794 12/15/2024 3:00 PM CDT Virtual Visit [facility] [address] [place] [address] Chintan Denise, SIGNWRITER [facility] [address] [facility] [place], [place] 0892768 01/19/[address] [facility] [address] [phone] Any Joiner MD [address] [place] [address] 969165 *-*INCOMING RECORDS*-* 01/19/2025 3:00 PM CDT Orders Only [facility] Pulmonary Function Testing [address] [place] [phone] 01/19/2025 4:00 PM CDT Office Visit [facility] [address] [phone] Any Joiner MD [address] [place] [address] 636795 06/01/2025 11:15 AM CDT Appointment [facility] Imaging [address] [facility] [address] [place] [phone] Robin Zepeda MD [address] [place] [address] 06/04/2025 11:00 AM CDT Office Visit [address] [place] [phone] Robin Zepeda MD [address] [place] [address] Usha Simon APRN DIGITAL MEDIA INTERN [address] [address] documented as of this encounter Visit Diagnoses Not on filedocumented in this encounter Additional Health Concerns Infection Onset Date Last Indicated Resolved Time Rule Out COVID-19 09/13/2024 09/13/2024 09/13/2024 12:31 PM WASTE SPECIALIST Assessment Noted Time PHQ-9 Depression Total Score: 5 03/17/20 24 9:45 AM CDT documented as of this encounter Care Teams Fan Mail Editor Relationship Specialty Start Date End Date Winston Villatoro OD [facility] [place] [address] [place] [address] PCP - Ophthalmology Ophthalmology 02/11/13 Denise Woodson APRN DIGITAL MEDIA INTERN [address] [place] [address] PCP - General Family Practice 09/21/20 Denise Woodson APRN DIGITAL MEDIA INTERN [address] [place] [address] Assigned PCP 07/17/20 Usha Simon APRN DIGITAL MEDIA INTERN [address] [place] [address] Nurse Practitioner Neurological Surgery 01/24/24 Dangelo Salinas MD [address] [place] [address] [id number] Neurology 01/27/24 Anastasia Stearns, RN Lead Sales Professional Bilingual 02/06/24 Germaine Aleman, CHW Community Health Worker Primary Care - CC 02/18/24 Lisa Zambrano MD 6405 [facility] [place] [address] Assigned Heart and Vascular Provider 05/08/24 07/07/24 Raul Hoyos MD [address] [address] Assigned Neuroscience Provider 05/08/24 07/07/24 Joya Lira [facility] [address] [place] [address] Pharmacist Pharmacist 05/25/24 Joya Lira [facility] [address] [place] [address] Assigned MTM Pharmacist 06/08/24 Fabi Coates MD [address] [place] [address] 75 [place] [address] Genetics, Clinical 06/18/24 Robin Zepeda MD [address] [address] Assigned Neuroscience Provider 07/08/24 08/07/24 Danna Cardenas PA-C 6405 [place] [address] Assigned Heart and Vascular Provider 07/08/24 Felicita Desai, GEMA Lead Sales Professional Bilingual 07/14/24 07/28/24 Arthur Salas [facility] [address] [place] [address] Assigned Behavioral Health Provider 08/08/24 Randy Maradiaga DO 909 [place], [place] 220855 Assigned Neuroscience Provider 08/08/24 Tete Wang MD [address] [place] [address] 122014 Genetics, Clinical 10/30/24 documented as of this encounter
--- OUTSIDE RECORDS SUMMARY | 2024-11-08 11:15 | XMS_ITS | Encounter Summary ---
Author Organization [place] Address [address] [place] [address] Care Team Providers Care Hazmat Cdl A Driver Name Role Phone Winston Villatoro OD Unavailable [phone] Denise Woodson APRN MACHINE FILLER Unavailable [phone] Denise Woodson APRN MACHINE FILLER Primary Care Provider Usha Simon APRN MACHINE FILLER Unavailable + [phone] Dangelo Salinas MD Unavailable Anastasia Stearns RN Unavailable [phone] Germaine Aleman [facility] Unavailable [phone] Lisa Zambrano MD Unavailable + [phone] Raul Hoyos MD Unavailable Joya Lira [facility] Unavailable [phone] Joya Lira [facility] Unavailable +[phone] Fabi Coates MD Unavailable [phone] Robin Zepeda MD Unavailable +[phone] Danna Cardenas PA-C Unavailable +[phone] Felicita Desai RN Unavailable Unavailab Arthur Rios Unavailable +[phone] Randy Maradaiga DO Unavailable + Tete Wang MD Unavailable [...] How often do you attend mandaen or caodaism serv ices? 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 [place] [phone] Lisa Zambrano MD [address] [place] [address] 12/03/2024 7:00 AM CDT Virtual Visit [facility] Neurology [address] [phone] Randy Maradiaga [address] 720[address] 12/09/2024 12:45 PM CDT Office Visit [facility] [address] [place] [phone] Tete Wang MD [address] [place] [address] 12/09/2024 1:15 PM CDT Office Visit [facility]ty Clinic [address] [place] [address] [phone] Tete Wang MD [address] [place] [address] 585034 12/15/2024 3:00 PM CDT Virtual Visit [facility] [address] [facility] [place] [phone] Denise Woodson APRN MACHINE FILLER [address] [facility] [place] [address] 01/19/2025 PRE VISIT [facility] Science [address] [phone] Any Joiner MD [address] [place] [address] 815525 *-*INCOMING RECORDS*-* 01/19/2025 3:00 PM CDT Orders Only [facility] Pulmonary Function Testing [address] [place] [address] 01/19/2025 4:00 PM CDT Office Visit [facility] Science [address] [phone] Any Joiner MD [address] [place] [address] [phone] 06/01/2025 11:15 AM CDT Appointment [facility] Imaging [address] [place] [address] Robin Zepeda MD [address] [place] [address] 859045 06/04/2025 11:00 AM CDT Office Visit [facility] Neurosurgery [address] [phone] Robin Zepeda MD [address] [place] [address] Usha Simon APRN [address] [id number] documented as of this encounter Visit Diagnoses Not on filedocumented in this encounter Additional Health Concerns Infection Onset Date Last Indicated Resolved Time Rule Out COVID-19 09/13/2024 09/13/2024 09/13/2024 12:31 PM HEEL DIPPER Assessment Noted Time PHQ-9 Depression Total Score: 5 03/17/20 24 9:45 AM CDT documented as of this encounter Care Teams Hazmat Cdl A Driver Relationship Specialty Start Date End Date Winston Villatoro OD [facility] [address] [place] [address] PCP - Ophthalmology Ophthalmology 02/11/13 Denise Woodson APRN MACHINE FILLER [address] [place] [address] PCP - General Family Practice 09/21/20 Denise Woodson APRN MACHINE FILLER [address] [place] [address] Assigned PCP 07/17/20 Usha Simon APRN MACHINE FILLER 909 [facility]121[place], [place] 5660[address] Nurse Practitioner Neurological Surgery 01/24/24 Dangelo Salinas MD [address] [place], [place] [phone] Neurology 01/27/24 Anastasia Stearns, RN Lead Credit Controller 02/06/24 Germaine Aleman, CHW Community Health Worker Primary Care - CC 02/18/24 Lisa Zambrano MD [address] [place] [id number] Assigned Heart and Vascular Provider 05/08/24 07/07/24 Raul Hoyos MD 909 [id number] [address] Assigned Neuroscience Provider 05/08/24 07/07/24 Joya Lira [facility] [address] [place] [address] Pharmacist Pharmacist 05/25/24 Joya Lira [facility] [address] [place] [address] Assigned MTM Pharmacist 06/08/24 Fabi Coates MD [address] [place] [address] 75 [place] [address] Genetics, Clinical 06/18/24 Robin Zepeda MD 909 [id number] [address] Assigned Neuroscience Provider 07/08/24 08/07/24 Danna Cardenas PA-C 6405 [place] [address] Assigned Heart and Vascular Provider 07/08/24 Felicita Desai, GEMA Lead Credit Controller 07/14/24 07/28/24 Arthur Salas [facility] [address] [address] Assigned Behavioral Health Provider 08/08/24 Randy Maradiaga DO 909 [place] [address] Assigned Neuroscience Provider 08/08/24 Tete Wang MD 2450 [place], [place] 677124 Genetics, Clinical 10/30/24 documented as of this encounter
--- OUTSIDE RECORDS SUMMARY | 2024-11-08 11:15 | XMS_ITS | Encounter Summary ---
Author Organization [place] Address [address] [place] [address] Care Team Providers Care Customer Contact Representative Name Role Phone Winston Villatoro OD Unavailable +[phone] Denise Woodson APRN SQUIRT MACHINE OPERATOR Unavailable +[phone] Denise Woodson APRN SQUIRT MACHINE OPERATOR Primary Care Provider Usha Simon APRN SQUIRT MACHINE OPERATOR Unavailable + [phone] Dangelo Salinas MD Unavailable Anastasia Stearns RN Unavailable +[phone] Germaine Aleman [facility] Unavailable +[phone] Lisa Zambrano MD Unavailable + [phone] Raul Hoyos MD Unavailable Joya Lira [facility] Unavailable +[phone] Joya Lira [facility] Unavailable +[phone] Fbai Coates MD Unavailable [phone] Robin Zepeda MD Unavailable +[phone] Danna Cardenas PA-C Unavailable +[phone] Felicita Desai RN Unavailable Unavailab Arthur Rios Unavailable +[phone] Randy Maradiaga DO Unavailable + Tete Wang MD Unavailable +[phone] Encounter Details Date Type Department Care Team (Late st Contact Info) Description 05/24/2024 MyC Medical Advice Se [facility] [address], [address] [place] [address] Rohit Barcenas MD 420 [facility] 295 [place] [address] Social History Tobacco Use Types [...] How often do you attend advent or zoroastrianism serv ices? Never 02/28/2024 Do [...] Date Recorded PHQ-2 Score 2 05/05/2024 [facility] [place] of Occupat ional Health - Occupational Stress [...] on file Legal Sex Female 4:05 AM REGIONAL ECONOMIC LIAISON Gender Identity Not on file Sexual Orientation [...] st Contact Info) Description 11/17/2024 2:30 PM REGIONAL ECONOMIC LIAISON Virtual Visit [facility] [address] [place] [phone] Denise Woodson APRN SQUIRT MACHINE OPERATOR [address] [place], [place] 5429868 12/01/2024 4:00 PM CDT Virtual Visit [facility] V[facility] [place] [address] [place] [phone] Lisa Zambrano MD [address] [place] [address] 12/03/2024 7:00 AM CDT Virtual Visit [facility] Neurology [address] [phone] Randy Maradiaga, [address] 091175 12/09/2024 12:45 PM CDT Office Visit [facility] [address] [place] [phone] Tete Wang MD [address] [place] [address] 071534 12/09/2024 1:15 PM CDT Office Visit [facility] [address] [place] [address] [phone] Tete Wang MD [address] [place] [address] 508904 12/15/2024 3:00 PM CDT Virtual Visit [facility] [address] [place] [address] Chintan Denise, WINDOWS ARCHITECT [facility] [address] [facility] [place], [place] [phone] 01/19/2025 PRE VISIT [facility] Lung Science [address] [phone] Any Joiner MD [address] [place] [address] 003965 *-*INCOMING RECORDS*-* 01/19/2025 3:00 PM CDT Orders Only [facility] Pulmonary Function Testing [address] [place] [phone] 01/19/2025 4:00 PM CDT Office Visit [facility] Lung Science [address] [phone] Any Joiner MD [address] [place] [address] 402635 06/01/2025 11:15 AM CDT Appointment [facility] Center Imaging [address] [facility] [address] [place] [phone] Robin Zepeda MD [address] [place] [address] 06/04/2025 11:00 AM CDT Office Visit [address] [place] [phone] Robin Zepeda MD [address] [place] [address] Usha Simno APRN SQUIRT MACHINE OPERATOR [address] [address] documented as of this encounter Visit Diagnoses Not on filedocumented in this encounter Additional Health Concerns Infection Onset Date Last Indicated Resolved Time Rule Out COVID-19 09/13/2024 09/13/2024 09/13/2024 12:31 PM REGIONAL ECONOMIC LIAISON Assessment Noted Time PHQ-9 Depression Total Score: 5 03/17/20 24 9:45 AM CDT documented as of this encounter Care Teams Customer Contact Representative Relationship Specialty Start Date End Date Winston Villatoro OD [facility] [place] [address] [place] [address] PCP - Ophthalmology Ophthalmology 02/11/13 Denise Woodson APRN SQUIRT MACHINE OPERATOR [address] [place] [address] PCP - General Family Practice 09/21/20 Denise Woodson APRN SQUIRT MACHINE OPERATOR [address] [place] [address] Assigned PCP 07/17/20 Usha Simon APRN SQUIRT MACHINE OPERATOR [address] [place] [address] Nurse Practitioner Neurological Surgery 01/24/24 Dangelo Salinas MD [address] [phone] Neurology 01/27/24 Anastasia Stearns, RN Lead Route Service Manager 02/06/24 Germaine Aleman, CHW Community Health Worker Primary Care - CC 02/18/24 Lisa Zambrano MD [address] [facility] [place] [address] Assigned Heart and Vascular Provider 05/08/24 07/07/24 Raul Hoyos MD [address] [address] Assigned Neuroscience Provider 05/08/24 07/07/24 Joya Lira [facility] [address] [place] [address] Pharmacist Pharmacist 05/25/24 Joya Lira [facility] [address] [place] [address] Assigned MTM Pharmacist 06/08/24 Fabi Coates MD [address] [place] [address] 75 [place] [address] Genetics, Clinical 06/18/24 Robin Zepeda MD [address] [address] Assigned Neuroscience Provider 07/08/24 08/07/24 Danna Cardenas PA-C 6405 [place] [address] Assigned Heart and Vascular Provider 07/08/24 Felicita Desai, GEMA Lead Route Service Manager 07/14/24 07/28/[address] [facility] [address] [place] [address] Assigned Behavioral Health Provider 08/08/24 Randy Maradiaga DO 909 [place], [place] 695865 Assigned Neuroscience Provider 08/08/24 Tete Wang MD [address] [place] [address] 571404 Genetics, Clinical 10/30/24 documented as of this encounter
--- OUTSIDE RECORDS SUMMARY | 2024-11-08 11:16 | XMS_ITS | Encounter Summary ---
Author Organization [place] Address [address] [place] [address] Care Team Providers Care Distribution Systems Superintendent Name Role Phone Winston Villatoro OD Unavailable [phone] Denise Woodson APRN STANDPIPE TENDER Unavailable +[phone] Denise Woodson APRN STANDPIPE TENDER Primary Care Provider Usha Simon APRN STANDPIPE TENDER Unavailable + [phone] Dangelo Salinas MD Unavailable Anastasia Stearns RN Unavailable Germaine Aleman [facility] Unavailable [phone] Lisa Zambrano MD Unavailable + [phone] Raul Hoyos MD Unavailable Joya Lira [facility] Unavailable [phone] Joya Lira [facility] Unavailable [phone] Fabi Coates MD Unavailable [phone] Robin Zepeda MD Unavailable +[phone] Danna Cardenas PA-C Unavailable +[phone] Felicita Desai RN Unavailable Unavailab Arthur Rios Unavailable +[phone] Randy Maradiaga DO Unavailable + Tete Wang MD Unavailable [phone] Encounter Details Date Type Department Care Team (Late st Contact Info) Description 05/12/2024 Telephone [facility] [address] [place] [address] Denise Woodson MAINTENANCE [facility] [address] [place] [address] Social History Tobacco Use Types [...] often do you attend roman catholic or anglican serv ices? 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 Forms was placed in the provider basket for review and sign. Anastasia Velasquez Application Support Manager [facility] * Telephone Encounter - Anastasia Abad - 05/20/2024 11:01 AM CDT Kaleb with [employer] calling to inquire if short term disability forms were received. Will Re-send the Forms. Forms were not in the provider's basket, nor was there an encounter statingthe provider received/signed the form. Anastasia Velasquez Application Support Manager [facility] * Telephone Encounter - Donald Newman - 05/12/2024 4:28 PM CDT Forms/Letter Request Type of form/letter: OTHER: FORMS from ([employer]) Do we have the form/letter: Yes: In the Dr's in basket at front desk assistant Who is the form from? [employer] Where did/will the form come from? form was faxed in When is form/letter needed by: [facility] How would you like the form/letter returned: Patient Notified form requests are processed in 5-7 business days:No Could we send this information to you [facility] or would you prefer to receive a phone call?: No preference Okay to leave a detailed message?: No at Other phone number: FAX: [phone] documented in this encounter Plan of Treatment Upcoming Encounters Date Type Department Care Team (Late st Contact Info) Description 11/17/2024 2:30 PM FRANCHISE SALES DIRECTOR Virtual Visit [facility] [address] [place] [phone] Denise Woodson, [place] STANDPIPE TENDER [address] [facility] [place] [place] [address]38468 12/01/2024 4:00 PM CDT Virtual Visit [facility] Vascular Clinic [place] [address] [place] [phone] Lisa Zambrano MD [address] [place] [address] 12/03/2024 7:00 AM CDT Virtual Visit [facility] Neurology [address] [phone] Randy Maradiaga [address] 711185 12/09/2024 12:45 PM CDT Office Visit [facility] [address] [place] [address] [phone] Tete Wang MD [address] [place] [address] 12/09/2024 1:15 PM CDT Office Visit [facility] [address] [place] [address] [phone] Tete Wang MD [address] [place] [address] 956434 12/15/2024 3:00 PM CDT Virtual Visit [facility] [address] [place] [phone] Denise Woodson APRN STANDPIPE TENDER [address] [place] [address] 01/19/2025 PRE VISIT [facility] Science [address] [phone] Any Joiner MD [address] [place] [address] 970235 *-*INCOMING RECORDS*-* 01/19/2025 3:00 PM CDT Orders Only [facility] Pulmonary Function Testing [address] [place] [address] 01/19/2025 4:00 PM CDT Office Visit [facility] Science [address] [phone] Any Joiner MD [address] [place] [address] [phone] 06/01/2025 11:15 AM CDT Appointment [facility] Imaging [address] [facility] [address] [place] [address] Robin Zepeda MD [address] [place] [address] 240975 06/04/2025 11:00 AM CDT Office Visit [facility] Neurosurgery [address] [phone] Robin Zepeda MD [address] [place] [address] Usha Simon APRN [address] [phone] documented as of this encounter Visit Diagnoses Not on filedocumented in this encounter Additional Health Concerns Infection Onset Date Last Indicated Resolved Time Rule Out COVID-19 09/13/2024 09/13/2024 09/13/2024 12:31 PM FRANCHISE SALES DIRECTOR Assessment Noted Time PHQ-9 Depression Total Score: 5 03/17/20 24 9:45 AM CDT documented as of this encounter Care Teams Distribution Systems Superintendent Relationship Specialty Start Date End Date Winston Villatoro OD [facility] [place] [address] [place] [address] PCP - Ophthalmology Ophthalmology 02/11/13 Denise Woodson APRN STANDPIPE TENDER [address] [place] [address] PCP - General Family Practice 09/21/20 Denise Woodson APRN STANDPIPE TENDER [address] [place] [address] Assigned PCP 07/17/20 Usha Simon APRN STANDPIPE TENDER 909 [facility]2121[place], [place] 612575 Nurse Practitioner Neurological Surgery 01/24/24 Dangelo Salinas MD [address] [place], [place] [phone] Neurology 01/27/24 Anastasia Stearns, RN Lead Insulator Cutter And Former 02/06/24 Germaine Aleman, W Community Health Worker Primary Care - CC 02/18/24 Lisa Zambrano MD [address] [place] 788485 Assigned Heart and Vascular Provider 05/08/24 07/07/24 Raul Hoyos MD 909 [facility]2121[place] [address] Assigned Neuroscience Provider 05/08/24 07/07/24 Joya Lira [facility] 3[address] [place] [address] Pharmacist Pharmacist 05/25/24 Joya Lira [facility] [address] [facility] [place] [address] Assigned MTM Pharmacist 06/08/24 Fabi Coates MD [address] [place] [address] 75 [place] [address] Genetics, Clinical 06/18/24 Robin Zepeda MD 909 [facility]2121[place] [address] Assigned Neuroscience Provider 07/08/24 08/07/24 Danna Cardenas PA-C 6405 [place] [address] Assigned Heart and Vascular Provider 07/08/24 Felicita Desai RN Lead Insulator Cutter And Former 07/14/24 07/28/24 Arthur Salas [facility] [address] [address] Assigned Behavioral Health Provider 08/08/24 Randy Maradiaga DO 909 [place] [address] Assigned Neuroscience Provider 08/08/24 Tete Wang MD 2450 [place] [address] Genetics, Clinical 10/30/24 documented as of this encounter
--- OUTSIDE RECORDS SUMMARY | 2024-11-08 11:16 | XMS_ITS | Encounter Summary ---
Author Organization [facility] Address [address] [place] [address] Care Team Providers Care Certified Master Locksmith Name Role Phone Winston Villatoro OD Unavailable [phone] Denise Woodson APRN CRIMPING MACHINE OPERATOR FOR METAL Unavailable +[phone] Denise Woodson APRN CRIMPING MACHINE OPERATOR FOR METAL Primary Care Provider Usha Simon APRN CRIMPING MACHINE OPERATOR FOR METAL Unavailable + [phone] Dangelo Salinas MD Unavailable Anastasia Stearns RN Unavailable +[phone] Germaine Aleman [facility] Unavailable +[phone] Lisa Zambrano MD Unavailable + [phone] Raul Hoyos MD Unavailable Joya Lira [facility] Unavailable +[phone] Joya Lira [facility] Unavailable +[phone] Fabi Coates MD Unavailable [phone] Robin Zepeda MD Unavailable +[phone] Danna Cardenas PA-C Unavailable +[phone] Felicita Desai RN Unavailable Unavailab Arthur Rios Unavailable +[phone] Randy Maradiaga DO Unavailable + Tete Wang MD Unavailable +[phone] Reason for Visit * Reason Onset Date Comments Symptoms 05/12/2024 Stroke symptoms per pt Encounter Details Date Type Department Care Team (Late st Contact Info) Description 05/12/2024 Telephone [facility] Neurology Clinic [address] 3rd [place] [address] Raul Hoyos MD [address] [place] [address] [id number] [place] [address] Symptoms (Stroke symptoms per pt ) Social [...] How often do you attend hindu or rastafarian serv ices? Never 02/28/2024 Do [...] PHQ-2 Score 2 05/05/2024 [facility] [place] of Occupat ional Health - Occupational Stress [...] on file Legal Sex Female 4:05 AM CHILD PSYCHOLOGIST Gender Identity Not on file Sexual Orientation [...] that she does not want to present [facility] ED as she has been to [...] states she was at the ED at [facility] on Saturday05/08/24 and they also did [...] Daisy Day - 05/12/2024 10:18 AM CDT [facility] Phone Message May [...] st Contact Info) Description 11/17/2024 2:30 PM CHILD PSYCHOLOGIST Virtual Visit [facility] [address] [place] [phone] Denise Woodson APRN CRIMPING MACHINE OPERATOR FOR METAL [address] [place], [place] [phone] 12/01/2024 4:00 PM CDT Virtual Visit [facility] Vascular Clinic [place] [address] [place] [phone] Lisa Zambrano MD [address] [place] [address] 12/03/2024 7:00 AM CDT Virtual Visit [facility] Neurology Clinic [address] 3rd [place] [address] Randy Maradiaga DO [address] [place] [address] 707225 12/09/2024 12:45 PM CDT Office Visit [facility] [address] [place] [address] [phone] Tete Wang MD [address] [place] [address] 746654 12/09/2024 1:15 PM CDT Office Visit [facility] [address] [place] [address] [phone] Tete Wang MD [address] [place] [address] [phone] 12/15/2024 3:00 PM CDT Virtual Visit [facility] [address] [place] [address] Denise Woodson APRN [facility] [address] [place], [place] 7125168 01/19/2025 PRE VISIT [facility] for [facility] Health [address] [phone] Any Joiner MD [address] 234865 *-*INCOMING RECORDS*-* 01/19/2025 3:00 PM CDT Orders Only [facility] Pulmonary Function Testing [address] 3rd [place] [phone] 01/19/2025 4:00 PM CDT Office Visit [facility] [address] [phone] Any Joiner MD 420 [facility] 276 [place], [place] 711615 06/01/2025 11:15 AM CDT Appointment [facility] [address] [place] [phone] Robin Zepeda MD [address] [place] [address] 06/04/2025 11:00 AM CDT Office Visit [facility] Neurosurgery [address] 3rd [place] [phone] Robin Zepeda MD [address] [place] [address] 940245 Usha Simon APRN CRIMPING MACHINE OPERATOR FOR METAL [address] [place] [address] 156375 documented as of this encounter Visit Diagnoses Not on filedocumented in this encounter Additional Health Concerns Infection Onset Date Last Indicated Resolved Time Rule Out COVID-19 09/13/2024 09/13/2024 09/13/2024 12:31 PM CHILD PSYCHOLOGIST Assessment Noted Time PHQ-9 Depression Total Score: 5 03/17/20 24 9:45 AM CDT documented as of this encounter Care Teams Certified Master Locksmith Relationship Specialty Start Date End Date Winston Villatoro OD [facility] [place] [address] [place] [address] PCP - Ophthalmology Ophthalmology 02/11/13 Denise Woodson APRN CRIMPING MACHINE OPERATOR FOR METAL [address] [place] [address] PCP - General Family Practice 09/21/20 Denise Woodson APRN CRIMPING MACHINE OPERATOR FOR METAL [address] [place] [address] Assigned PCP 07/17/20 Usha Simon APRN CRIMPING MACHINE OPERATOR FOR METAL [address] 858745 Nurse Practitioner Neurological Surgery 01/24/24 Dangelo Salinas MD [address] [place] [address] Neurology 01/27/24 Anastasia Stearns, RN Lead Material Man 02/06/24 Germaine Aleman, [facility] Community Health Worker Primary Care - CC 02/18/24 Lisa Zambrano MD 6405 [facility] [address] [place] [address] [place] 131405 Assigned Heart and Vascular Provider 05/08/24 07/07/24 Raul Hoyos MD [address] [address] Assigned Neuroscience Provider 05/08/24 07/07/24 Joya Lira [facility] [address] [place], [place] [phone] Pharmacist Pharmacist 05/25/24 Joya Lira [facility] [address] [place] [address] Assigned MTM Pharmacist 06/08/24 Fabi Coates MD 420 [facility] 75 [place] [address] Genetics, Clinical 06/18/24 Robin Zepeda MD 909 [facility] [id number] [place] [address] Assigned Neuroscience Provider 07/08/24 08/07/24 Danna Cardenas PA-C [address] [place] [address] Assigned Heart and Vascular Provider 07/08/24 Felicita Desai RN Lead Material Man 07/14/24 07/28/24 Arthur Salas, [facility] [address] [place] [address] Assigned Behavioral Health Provider 08/08/24 Randy Maradiaga DO 909 [place] [address] Assigned Neuroscience Provider 08/08/24 [place] [address] [place] [address] Genetics, Clinical 10/30/24 documented as of this encounter
--- OUTSIDE RECORDS SUMMARY | 2024-11-08 11:16 | XMS_ITS | Encounter Summary ---
Author Organization [place] Address [address] [place] [address] Care Team Providers Care Overlock Operator Name Role Phone Winston Villatoro OD Unavailable [phone] Denise Woodson APRN STUDY ABROAD ADVISOR Unavailable [phone] Denise Woodson APRN STUDY ABROAD ADVISOR Primary Care Provider Usha Simon APRN STUDY ABROAD ADVISOR Unavailable + [phone] Dangelo Salinas MD Unavailable Anastasia Stearns RN Unavailable [phone] Germaine Aleman [facility] Unavailable +[phone] Joya Lira [facility] Unavailable +[phone] Joya Lira [facility] Unavailable +[phone] Fabi Coates MD Unavailable [phone] Danna Cardenas PA-C Unavailable +[phone] Arthur Salas MIXER OPERATOR HOT METAL Unavailable +[phone] Randy Maradiaga DO Unavailable + Tete Wang MD Unavailable +[phone] Encounter Details Date Type Department Care Team (Late st Contact Info) Description 10/14/2024 [facility] [address] [place] [address] Janeen Badillo Social History Tobacco Use Types [...] Never 09/16/2024 How often do you attend episcopalian or adventism serv ices? Never 09/16/2024 Do you belong [...] Date Recorded PHQ-2 Score 0 09/29/2024 [facility] [...] in an overnight chcf, or couch-surfing.) Yes 09/16/2024 Are you worried [...] on file Legal Sex Female 4:05 AM WHITE WASHER PILER Gender Identity Not on file Sexual [...] st Contact Info) Description 11/17/2024 2:30 PM WHITE WASHER PILER Virtual Visit [facility] [address] [place] [address] Denise Woodson APRN [facility] [address] [place] [address] 12/01/2024 4:00 PM CDT Virtual Visit [facility] [place] [address] [place] [phone] Lisa Zambrano MD [address] [place] [address] 12/03/2024 7:00 AM CDT Virtual Visit [facility] Neurology [address] 3rd [place] [phone] Randy Maradiaga, [address] 644[address] 12/09/2024 12:45 PM CDT Office Visit [facility] [address] [place] [address] [phone] Tete Wang MD [address] [place] [address] 666304 12/09/2024 1:15 PM CDT Office Visit [facility] [address] [place] [address] [phone] Tete Wang MD [address] [place] [address] 12/15/2024 3:00 PM CDT Virtual Visit [facility] [address] [place] [address] Denise Woodson APRN [facility] [address] [place], [place] [address]68 01/19/2025 PRE VISIT [facility] for [facility] Science [address] [phone] Any Joiner MD [address] [place] [address] 137535 *-*INCOMING RECORDS*-* 01/19/2025 3:00 PM CDT Orders Only [facility] Pulmonary Function Testing [address] [phone] 01/19/2025 4:00 PM CDT Office Visit [address] [phone] Any Joiner MD [address] [place] [address] 424655 06/01/2025 11:15 AM CDT Appointment [facility] Imaging [address] [facility] [address] [place] [phone] Robin Zepeda MD [address] [place] [address] 959625 06/04/2025 11:00 AM CDT Office Visit [facility] Neurosurgery Clinic [address] [phone] Robin Zepeda MD [address] [place] [address] 184415 Usha Simon APRN [address] [address] documented as of this encounter Visit Diagnoses Not on filedocumented in this encounter Additional Health Concerns Assessment Noted Time PHQ-9 Depression Total Score: 0 09/18/19 25 12:46 PM WHITE WASHER PILER documented as of this encounter Care Teams Overlock Operator Relationship Specialty Start Date End Date Winston Villatoro OD [facility] [place] [address] [place] [address] PCP - Ophthalmology Ophthalmology 02/11/13 Denise Woodson APRN STUDY ABROAD ADVISOR [address] [place] [address] PCP - General Family Practice 09/21/20 Denise Woodson APRN STUDY ABROAD ADVISOR [address] [address] [address] Assigned PCP 07/17/20 Usha Simon APRN STUDY ABROAD ADVISOR 909 [facility]121[place] [address] Nurse Practitioner Neurological Surgery 01/24/24 Dangelo Salinas MD [address] [place], [place] [phone] Neurology 01/27/24 Anastasia Stearns, RN Lead Heating And Ventilation Engineer 02/06/24 Germaine Aleman, W Community Health Worker Primary Care - CC 02/18/24 Joya Lira RPH [address] [address] Pharmacist Pharmacist 05/25/24 Joya Lira RPH [address] [place] [address] Assigned MTM Pharmacist 06/08/24 Fabi Coates MD [address] [facility] 75 [place] [address] Genetics, Clinical 06/18/24 Danna Cardenas PA-C 6405 [place] [address] Assigned Heart and Vascular Provider 07/08/24 Arthur Salas [facility] [address] [place] [address] Assigned Behavioral Health Provider 08/08/24 Randy Maradiaga DO 909 [place] [address] Assigned Neuroscience Provider 08/08/24 Tete Wang MD 2450 [place] [address] Genetics, Clinical 10/30/24 documented as of this encounter
--- OUTSIDE RECORDS SUMMARY | 2024-11-08 11:16 | XMS_ITS | Encounter Summary ---
Author Organization [place] Address [address] [place] [address] Care Team Providers Care Director Of Diversity And Inclusion Name Role Phone Winston Villatoro OD Unavailable [phone] Denise Woodson APRN FITTER HAND Unavailable [phone] Denise Woodson APRN FITTER HAND Primary Care Provider Usha Simon APRN [facility] Unavailable + [phone] Dangelo Salinas MD Unavailable Anastasia Stearns RN Unavailable +[phone] Germaine Aleman [facility] Unavailable +[phone] Joya Lira [facility] [facility] Unavailable [phone] Joya Lira [facility] Unavailable [phone] Fabi Coates MD Unavailable [phone] Danna Cardenas PA-C Unavailable [phone] Arthur Salas CAREER PROFESSIONAL Unavailable [phone] Randy Maradiaga DO Unavailable + Tete Wang MD Unavailable +[phone] Reason for Visit * Reason Onset Date Comments Appointment 10/30/2024 Genetics resched megha Encounter Details Date Type Department Care Team (Late st Contact Info) Description 10/30/2024 Telephone [facility] [address] [facility] [address],[place] [address] Unknown, Provider Appointment (Genetics reschedule) [...] Never 09/16/2024 How often do you attend buddhist or presybeterian serv ices? 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 TER MOLDER documented in this encounter Plan of Treatment Upcoming Encounters Date Type Department Care Team (Late st Contact Info) Description 11/17/2024 2:30 PM COUNTER MOLDER Virtual Visit [facility] [address] [place] [phone] Denise Woodson APRN [facility] [address] [place], [place] [address] 12/01/2024 4:00 PM CDT Virtual Visit [facility] [place] [address] [place] [address] Lisa Zambrano MD [address] [place] [address] 12/03/2024 7:00 AM CDT Virtual Visit [facility] Neurology Clinic [address] [place] [phone] Randy Maradiaga DO [address] [place] [address] 945795 12/09/2024 12:45 PM CDT Office Visit [facility] [address] [place], [place] [address]r,[place] [phone] Tete Wang MD [address] [place] [address] 984014 12/09/2024 1:15 PM CDT Office Visit [facility]ty Clinic [facility] [address],[place] [phone] Tete Wang MD [facility] [place] [address] 12/15/2024 3:00 PM CDT Virtual Visit [facility] [address] [place] [address] Denise Woodson APRN [facility] [address] [place] [address] 01/19/2025 PRE VISIT [facility] Lung Science and Health [address] [phone] Any Joiner MD [address] [place] [address] *-*INCOMING RECORDS*-* 01/19/2025 3:00 PM CDT Orders Only [facility] Pulmonary Function Testing [address] 3rd [place] [phone] 01/19/2025 4:00 PM CDT Office Visit [facility] Science [facility] Health [address] [phone] Any Joiner MD [address] [place] [address] 346445 06/01/2025 11:15 AM CDT Appointment [facility] Imaging [address] [facility] [address] [place] [phone] Robin Zepeda MD [address] [place], [place] [address] [address] 06/04/2025 11:00 AM CDT Office Visit [facility] Neuro[facility] [address] [place] [phone] Robin Zepeda MD [address] [place] [address] Usha Simon APRN FITTER HAND [address] [place] [address] documented as of this encounter Visit Diagnoses Not on filedocumented in this encounter Additional Health Concerns Assessment Noted Time PHQ-9 Depression Total Score: 0 09/18/19 25 12:46 PM COUNTER MOLDER documented as of this encounter Care Teams Director Of Diversity And Inclusion Relationship Specialty Start Date End Date Winston Villatoro OD [facility] [place] [address] [facility] [address] [place] [address] PCP - Ophthalmology Ophthalmology 02/11/13 Denise Woodson APRN FITTER HAND [address] [place] [address] PCP - General Family Practice 09/21/20 Denise Woodson APRN FITTER HAND [address] [place] [address] Assigned PCP 07/17/20 Usha Simon APRN FITTER HAND [address] [place] [address] Nurse Practitioner Neurological Surgery 01/24/24 Dangelo Salinas MD [address] [place] [address] Neurology 01/27/24 Anastasia Stearns, RN Lead Platform Builder 02/06/24 Germaine Aleman, W Community Health Worker Primary Care - CC 02/18/24 Joya Lira [facility] [address] [place] [address] Pharmacist Pharmacist 05/25/24 Joya Lira [facility] [address] [place] [address] Assigned MTM Pharmacist 06/08/24 Fabi Coates MD [address] [place] [address] 135175 Genetics, Clinical 06/18/24 Danna Cardenas PA-C [address] [place] [address] 424105 Assigned Heart and Vascular Provider 07/08/24 Arthur Salas CAREER PROFESSIONAL [address] [place] [address] [id number] Assigned Behavioral Health Provider 08/08/24 Randy Maradiaga DO 909 [place], [place] 902885 Assigned Neuroscience Provider 08/08/24 Tete Wang MD 2450 [place], [place] 590534 Genetics, Clinical 10/30/24 documented as of this encounter
--- OUTSIDE RECORDS SUMMARY | 2024-11-08 11:16 | XMS_ITS | Encounter Summary ---
Author Organization [place] Address [address] [place] [address] Care Team Providers Care Mine Boss Name Role Phone Winston Villatoro OD Unavailable [phone] Denise Woodson APRN PROCESS AUTOMATION ENGINEER Unavailable +[phone] Denise Woodson APRN PROCESS AUTOMATION ENGINEER Primary Care Provider Usha Simon APRN PROCESS AUTOMATION ENGINEER Unavailable + [phone] Dangelo Salinas MD Unavailable Anastasia Stearns RN Unavailable +[phone] Germaine Aleman CH Unavailable +[phone] Robin Zepeda MD Unavailable Lisa Zambrano MD Unavailable Raul Hoyos MD Unavailable [phone] Joya Lira RP Unavailable [phone] Joya Lira RPJoleen Unavailable +[phone] Fabi Coates MD Unavailable [phone] Robin Zepeda MD Unavailable Danna CardenasC Unavailable +[phone] Felicita Desai RN Unavailable Unavailab Arthur Rios Unavailable +[phone] Ashwini Randy Yobany DO Unavailable + Tete [...] How often do you attend worship or congregation serv ices? 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 [place] [phone] Lisa Zambrano MD [address] [place] [address]85 12/03/2024 7:00 AM CDT Virtual Visit [facility] Neurology [address] [phone] Randy Maradiaga, [address] [address] 12/09/2024 12:45 PM CDT Office Visit [facility] [address] [place] [address] [phone] Tete Wang MD [address] [place] [address] 12/09/2024 1:15 PM CDT Office Visit [facility] [address] [place] [address] [phone] Tete Wang MD [address] [place] [address] 807134 12/15/2024 3:00 PM CDT Virtual Visit [facility] [address] [place] [phone] Denise Woodson APRN PROCESS AUTOMATION ENGINEER [address] [place] [address] 01/19/2025 PRE VISIT [facility] Lung Science [address] [phone] Any Joiner MD [address] [place] [address] *-*INCOMING RECORDS*-* 01/19/2025 3:00 PM CDT Orders Only [facility] Pulmonary Function Testing [address] [address] 01/19/2025 4:00 PM CDT Office Visit [facility] Lung Science [address] [phone] Any Joiner MD [address] [place] [address] 044825 06/01/2025 11:15 AM CDT Appointment [facility] Imaging [address] [facility] [address] [place] [phone] Robin Zepeda MD [address] [place] [address] 784655 06/04/2025 11:00 AM CDT Office Visit [address] [phone] Robin Zepeda MD [address] [place] [address] 629335 Usha Simon APRN PROCESS AUTOMATION ENGINEER [address] [place] [address] 548325 documented as of this encounter Visit Diagnoses Not on filedocumented in this encounter Additional Health Concerns Infection Onset Date Last Indicated Resolved Time Rule Out COVID-19 09/13/2024 09/13/2024 09/13/2024 12:31 PM FIELD AUDITOR Assessment Noted Time PHQ-9 Depression Total Score: 5 03/17/20 24 9:45 AM CDT documented as of this encounter Care Teams Mine Boss Relationship Specialty Start Date End Date Winston Villatoro OD [facility] [address] [place] [address] PCP - Ophthalmology Ophthalmology 02/11/13 Denise Woodson APRN PROCESS AUTOMATION ENGINEER [address] [place] [address] PCP - General Family Practice 09/21/20 Denise Woodson APRN PROCESS AUTOMATION ENGINEER [address] [place] [address] Assigned PCP 07/17/20 Usha Simon APRN PROCESS AUTOMATION ENGINEER [address] [address] Nurse Practitioner Neurological Surgery 01/24/24 Dangelo Salinas MD [address] [place] [address] Neurology 01/27/24 Anastasia Stearns, RN Lead Scientist 02/06/24 Germaine Aleman, CHW Community Health Worker Primary Care - CC 02/18/24 Robin Zepeda MD [address] [place] [address], [place] [address] Assigned Neuroscience Provider 03/08/24 05/07/24 Lisa Zambrano MD [address] [facility] [address] [place] [address] Assigned Heart and Vascular Provider 05/08/24 07/07/24 Raul Hoyos MD [address] [address] Assigned Neuroscience Provider 05/08/24 07/07/24 Joya Lira [facility] [address] [place] [address] Pharmacist Pharmacist 05/25/24 Joya Lira [facility] [address] [place] [address] Assigned MTM Pharmacist 06/08/24 Fabi Coates MD [address] [place] [address] 75 [place] [address] Genetics, Clinical 06/18/24 Robin Zepeda MD [address]09 [place] [address], [place] [address] Assigned Neuroscience Provider 07/08/24 08/07/24 Danna Cardenas PA-C 6405 [place] [address] Assigned Heart and Vascular Provider 07/08/24 Lloyd, Felicita M, RN Lead Scientist 07/14/24 07/28/24 Arthur Salas, [facility] [address] [place] [address] Assigned Behavioral Health Provider 08/08/24 Randy Maradiaga DO [address] [place] [address] 931795 Assigned Neuroscience Provider 08/08/24 Tete Wang MD 2450 [place], [place] 335114 Genetics, Clinical 10/30/24 documented as of this encounter
--- OUTSIDE RECORDS SUMMARY | 2024-11-08 11:16 | XMS_ITS | Encounter Summary ---
Author Organization [facility] Address [address] [place] [address] Care Team Providers Care Excelsior Machine Operator Name Role Phone Timmy Perez MD Unavailable Unavailable Yung Madrigal MD Unavailable Unavailable Frw, None Primary Care Provider Unavailabl e Winston Villatoro OD Unavailable [phone] Apple Sykes MD Primary Care Provider Unavailab Westley Vera MD Unavailable [phone] Georgina-Alessandra Gómez APRN CAR WASH MANAGER Primary Car e Provider Serum, Clara Garland MD Primary Care Provider Serum, Clara Garland MD Unavailable [phone] Serum, Clara Garland MD Unavailable +[phone] Denise Woodson APRN CAR WASH MANAGER Unavailable [phone] Denise Woodson APRN CAR WASH MANAGER Primary Care Provider Usha Simon APRN CAR WASH MANAGER Unavailable + [phone] Dangelo Salinas MD Unavailable Usha Simon APRN CAR WASH MANAGER Unavailable + [phone] Anastasia Stearns RN Unavailable [phone] Germaine Aleman CHW Unavailable +[phone] Robin Zepeda MD Unavailable +[phone] Lisa Zambrano MD Unavailable [phone] Raul Hoyos MD Unavailable SorayaThiJoya [facility] Unavailable +[phone] Soraya Joya [facility] Unavailable [phone] Fabi Coates MD Unavailable [phone] Robin Zepeda MD Unavailable [phone] Danna Cardenas PA-C Unavailable +[phone] Felicita Desai RN Unavailable Unavailab gabino Arthur Salas CORPORATE LIBRARIAN Unavailable +[phone] Randy Maradiaga DO Unavailable + Tete Wang MD Unavailable +[phone] Encounter Details Date Type Department Care Team (Late st Contact Info) Description 01/30/2006 [facility] [place] Inpatient Dept [address] [place] [phone] Frw, Inpatient Provider Social History Tobacco Use Types Packs/Day Years Used Date Smoking Tobacco: Never Passive Smoke Exposure: Never Smokeless Tobacco: Never Alcohol Use Standard Drinks/Week Comments Not Currently 0 (1 standard drink = 0.6 oz pur e alcohol) minimal Comments No Sex and Gender Information Value Date Recorded Sex Assigned at Not on file Legal Sex Female 4:05 AM BEAD MAKER Gender Identity Not on file Sexual [...] pain. PROCEDURE: TOTAL VAGINAL HYSTERECTOMY. SURGEON: Chris AUTOMATION AND CONTROL ENGINEER: Radha ANESTHESIA: Spinal ESTIMATED BLOOD LOSS: 100 [...] st Contact Info) Description 11/17/2024 2:30 PM BEAD MAKER Virtual Visit [facility] [address] [place] [phone] Denise Woodson APRN CAR WASH MANAGER [address] [place] [address] 12/01/2024 4:00 PM CDT Virtual Visit [facility] [place] [address] [place] [phone] Lisa Zambrano MD [address] [place] [address] 12/03/2024 7:00 AM CDT Virtual Visit [facility] Neurology Clinic [address] [phone] Randy Maradiaga [address] 981445 12/09/2024 12:45 PM CDT Office Visit [facility] [address] [place] [phone] Tete Wang MD [address] [place] [address] 12/09/2024 1:15 PM CDT Office Visit [facility]ty Clinic [address] [place] [address] [phone] Tete Wang MD [address] [place] [address] 12/15/2024 3:00 PM CDT Virtual Visit [facility] [address] [place] [address] Denise Woodson APRN [facility] [address] [place] [address] 01/19/2025 PRE VISIT [facility] [address] [phone] Any Joiner MD [address] [place] [address] 641155 *-*INCOMING RECORDS*-* 01/19/2025 3:00 PM CDT Orders Only [facility] Pulmonary Function Testing [address] 3rd [place] [phone] 01/19/2025 4:00 PM CDT Office Visit [facility] [address] [phone] Any Joiner MD [address] [place] [address] 06/01/2025 11:15 AM CDT Appointment [facility] Imaging [address] [place] [phone] Robin Zepeda MD [address] [place] [address] 752465 06/04/2025 11:00 AM CDT Office Visit [facility] Neurosurgery [address] [phone] Robin Zepeda MD [address] [place] [address] Usha Simon APRN [address] 427525 documented as of this encounter Visit Diagnoses Not on filedocumented in this encounter Additional Health Concerns Infection Onset Date Last Indicated Resolved Time Rule Out COVID-19 09/13/2024 09/13/2024 09/13/2024 12:31 PM BEAD MAKER documented as of this encounter Care Teams Excelsior Machine Operator Relationship Specialty Start Date End Date Timmy Perez MD PCP - Obstetrics/Gynecology 03/02/08 08/07/15 Yung Madrigal MD RETIRED PCP - Orthopaedics Orthopedics 08/26/12 01/20/24 Frw, None PCP - General Family Practice 08/26/12 05/03/13 Winston Villatoro, OD [facility] [place] [address] [place] [address] PCP - Ophthalmology Ophthalmology 02/11/13 Apple Sykes MD [facility] [place] [address] [place] [address] PCP - General Family Practice 05/04/13 10/25/16 Westley Bates MD XXX RETIRED XXX [address] [place] [address] PCP - ENT Otolaryngology 05/14/13 07/28/18 GeorginaAlessandra Celeste APRN CAR WASH MANAGER [address] [facility] [place] [address] PCP - General Nurse Practitioner 10/26/16 02/06/17 Clara Cornell MD [address] [facility] [place] [address] PCP - General Internal Medicine 02/07/17 09/20/20 Clara Cornell MD 8675 [place] [address] PCP - Assigned PCP 01/17/17 11/18/18 Denise Woodson APRN CAR WASH MANAGER [address] [place] [address] PCP - General Family Practice 09/21/20 Clara [place] MD 8675 [place] [address] Assigned PCP 01/17/17 07/16/20 Denise Woodson APRN CAR WASH MANAGER [address] [place] [address] Assigned PCP 07/17/20 Usha Simon APRN CAR WASH MANAGER [address] [place] [address] Nurse Practitioner Neurological Surgery 01/24/24 Dangelo Salinas MD [address] [facility] [address] [address] Neurology 01/27/24 Usha Simon APRN CAR WASH MANAGER [address] [place] [address] Assigned Neuroscience Provider 02/06/24 03/07/24 Anastasia Stearns, RN Lead Research Associate Molecular Biology 02/06/24 Germaine Aleman, W Community Health Worker Primary Care - CC 02/18/24 Robin Zepeda MD [address] [place] [address] Assigned Neuroscience Provider 03/08/24 05/07/24 Lisa Zambrano MD 6[address] [facility] [address] [place] [address] Assigned Heart and Vascular Provider 05/08/24 07/07/24 Raul Hoyos MD 909 [facility] [address] Assigned Neuroscience Provider 05/08/24 07/07/24 Joya Lira [facility] [address] [place] [address] Pharmacist Pharmacist 05/25/24 Joya Lira [facility] [address] [place] [address] Assigned MTM Pharmacist 06/08/24 Fabi Coates MD [address] [place] [address] 75 [place] [address] Genetics, Clinical 06/18/24 Robin Zepeda MD 909 [facility], [place] [address] Assigned Neuroscience Provider 07/08/24 08/07/24 Danna Cardenas PA-C 6405 [place] [address] Assigned Heart and Vascular Provider 07/08/24 Felicita Desai, RN Lead Research Associate Molecular Biology 07/14/24 07/28/24 Arthur Salas, [facility] [address] [place] [address] Assigned Behavioral Health Provider 08/08/24 Randy Maradiaga DO 909 [place] [address] Assigned Neuroscience Provider 08/08/24 Tete Wang MD 2450 [place] [address] Genetics, Clinical 10/30/24 documented as of this encounter
--- OUTSIDE RECORDS SUMMARY | 2024-11-08 11:16 | XMS_ITS | Encounter Summary ---
Author Organization [facility] Address [address] [place] [address] Care Team Providers Care Product Safety Tester Name Role Phone Winston Villatoro OD Unavailable [phone] Denise Woodson APRN KILN TENDER Unavailable [phone] Denise Woodson APRN KILN TENDER Primary Care Provider Usha Simon APRN KILN TENDER Unavailable + [phone] Dangelo Salinas MD Unavailable Anastasia Stearns RN Unavailable Germaine Aleman [facility] Unavailable Joya Lira [facility] Unavailable Joya Lira [facility] Unavailable [phone] Fabi Coates MD Unavailable [phone] Danna Cardenas PA-C Unavailable [phone] Arthur Salas LOCATION AND MEASUREMENT TECHNICIAN Unavailable [phone] Randy Maradiaga DO Unavailable + Encounter Details Date Type Department Care Team (Late st Contact Info) Description 10/20/2024 Telephone [facility] Neurology [address] 3rd [place] [address] Randy Maradiaga DO 909 [place] [address] Social History Tobacco Use Types Packs/Day Years [...] Never 09/16/2024 How often do you attend rastafari or buddhist serv ices? Never 09/16/2024 Do you belong [...] Answer Date Recorded PHQ-2 Score 0 09/29/2024 [facility] - [...] in an overnight alf, or couch-surfing.) Yes 09/16/2024 Are you worried [...] on file Legal Sex Female 4:05 AM LOAN WORKOUT OFFICER Gender Identity Not on file Sexual [...] Return date: Sep 2025 Specialty phone number: [phone] Additional appointment(s) needed: NA Additonal Notes: WORKOUT OFFICER documented in this encounter Plan of Treatment Upcoming Encounters Date Type Department Care Team (Late st Contact Info) Description 11/17/2024 2:30 PM LOAN WORKOUT OFFICER Virtual Visit [facility] [address] [place] [phone] Denise Woodson, BARRERA KILN TENDER [address] [place], [place] [phone] 12/01/2024 4:00 PM CDT Virtual Visit [facility] Vascular [facility] [address] [place] [phone] Lisa Zambrano MD [address] [place] [address] 12/03/2024 7:00 AM CDT Virtual Visit [facility] Neurology [address] [phone] Randy Maradiaga, [address] 673045 12/09/2024 12:45 PM CDT Office Visit [facility] Pediatric Specialty Clinic [address] [place] [phone] Tete Wang MD [address] [place] [address] 260544 12/09/2024 1:15 PM CDT Office Visit [facility] Pediatric Specialty Clinic [address] [place], [place] [address] [address] [phone] Tete Wang MD 2450 [place], [place] 290654 12/15/2024 3:00 PM CDT Virtual Visit [facility] [address] [place] [phone] Denise Woodson APRN [facility] [address] [place], [place] 1917768 01/19/2025 PRE VISIT [facility] Lung Science [address] [address] Any Joiner MD [address] [place] [address] 018095 *-*INCOMING RECORDS*-* 01/19/2025 3:00 PM CDT Orders Only [facility] Pulmonary Function Testing [address]rd [place] [phone] 01/19/2025 4:00 PM CDT Office Visit [facility] Lung Science [address] [phone] Any Joiner MD [address] [place] [address] 748875 06/01/2025 11:15 AM CDT Appointment [facility] Imaging [address] [place] [address] Robin Zepeda MD [address] [place], [place] [address] [address] 06/04/2025 11:00 AM CDT Office Visit [facility] Neurosurgery [address] [place] [phone] Robin Zepeda MD [address] [address] Usha Simon APRN KILN TENDER [address] [address] documented as of this encounter Visit Diagnoses Not on filedocumented in this encounter Additional Health Concerns Assessment Noted Time PHQ-9 Depression Total Score: 0 09/18/19 25 12:46 PM LOAN WORKOUT OFFICER documented as of this encounter Care Teams Product Safety Tester Relationship Specialty Start Date End Date Winston Villatoro OD [facility] [place] [address] [place] [address] PCP - Ophthalmology Ophthalmology 02/11/13 Denise Woodson APRN KILN TENDER [address] [place] [address] PCP - General Family Practice 09/21/20 Denise Woodson APRN KILN TENDER [address] [place] [address] Assigned PCP 07/17/20 Usha Simon APRN KILN TENDER [address] [place] [address] Nurse Practitioner Neurological Surgery 01/24/24 Dangelo Salinas MD [address] [place] [address] Neurology 01/27/24 Anastasia Stearns, RN Lead Hvac Sheet Metal Installer Helper 02/06/24 Germaine Aleman, [facility] Community Health Worker Primary Care - CC 02/18/24 Joya Lira RPH [address] [place] [address] Pharmacist Pharmacist 05/25/24 Joya Lira R[facility] [address] [place] [address] Assigned MTM Pharmacist 06/08/24 Fabi Coates MD [address] [place] [address] Genetics, Clinical 06/18/24 Danna Cardenas PA-C 6405 [place] [address] Assigned Heart and Vascular Provider 07/08/24 Arthur Salas LICSW [address] [address] Assigned Behavioral Health Provider 08/08/24 Randy Maradiaga DO [address] [place] [address] Assigned Neuroscience Provider 08/08/24 documented as of this encounter
--- OUTSIDE RECORDS SUMMARY | 2024-11-08 11:16 | XMS_ITS | Encounter Summary ---
Author Organization [facility] Address [address] [place] [address] Care Team Providers Care Adobe Layer Name Role Phone Winston Villatoro OD Unavailable [phone] Denise Woodson APRN GRAPHICS INTERN Unavailable [phone] Denise Woodson APRN GRAPHICS INTERN Primary Care Provider Usha Simon APRN GRAPHICS INTERN Unavailable + [phone] Dangelo Salinas MD Unavailable Anastasia Stearns RN Unavailable +[phone] Germaine Aleman CH Unavailable +[phone] Robin Zepeda MD Unavailable +[phone] Lisa Zambrano MD Unavailable Raul Hoyos MD Unavailable [phone] Joya Lira RP Unavailable [phone] Joya Lira RPJoleen Unavailable Fabi Coates MD Unavailable [phone] Robin Zepeda MD Unavailable [phone] Danna CardenasC Unavailable [phone] Felicita Desai RN Unavailable Unavailab Arthur Rios Unavailable +[phone] Randy Maradiaga DO Unavailable + Tete Wang MD Unavailable +[phone] Encounter Details Date Type Department Care Team (Late st Contact Info) Description 04/02/2024 MyC Medical Advice [facility] Neurology Clinic [address] 3rd [place] [address] Liliane Cobos Social History Tobacco [...] How often do you attend restorationism or holiness serv ices? 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 [place] [phone] Lisa Zambrano MD [address] [place] 9350[address] 12/03/2024 7:00 AM CDT Virtual Visit [facility] Neurology [address] [phone] Randy Maradiaga, [address] 847255 12/09/2024 12:45 PM CDT Office Visit [facility] [address] [place] [phone] Tete Wang MD [address] [place] [address] 011624 12/09/2024 1:15 PM CDT Office Visit [facility] Pediatric Specialty Clinic [address] [place] [address] [phone] Tete Wang MD [address] [place] [address] 552864 12/15/2024 3:00 PM CDT Virtual Visit [facility] [address] [place] [address] Denise Woodson APRN GRAPHICS INTERN [address] [place], [place] 2167868 01/19/2025 PRE VISIT [facility] Lung Science [address] [phone] Any Joiner MD [address] [place] [address] 400235 *-*INCOMING RECORDS*-* 01/19/2025 3:00 PM CDT Orders Only [facility] Pulmonary Function Testing [address] [phone] 01/19/2025 4:00 PM CDT Office Visit [facility] Lung Science [address] [phone] Any Joiner MD [address] [place] [address] 644265 06/01/2025 11:15 AM CDT Appointment [facility] Imaging [address] [facility] [address] [place] [address] Robin Zepeda MD [address] [place] [address] 384525 06/04/2025 11:00 AM CDT Office Visit [address] [phone] Robin Zepeda MD [address] [place] [address] 099975 Usha Simon APRN GRAPHICS INTERN [address] [place] [address] [address] documented as of this encounter Visit Diagnoses Not on filedocumented in this encounter Additional Health Concerns Infection Onset Date Last Indicated Resolved Time Rule Out COVID-19 09/13/2024 09/13/2024 09/13/2024 12:31 PM MANAGER FLIGHT OPERATIONS Assessment Noted Time PHQ-9 Depression Total Score: 5 03/17/20 24 9:45 AM CDT documented as of this encounter Care Teams Adobe Layer Relationship Specialty Start Date End Date Winston Villatoro OD [facility] [address] [facility] [address] [place] [address] PCP - Ophthalmology Ophthalmology 02/11/13 Denise Woodson APRN GRAPHICS INTERN [address] [place] [address] PCP - General Family Practice 09/21/20 Denise Woodson APRN GRAPHICS INTERN [address] [place] [address] Assigned PCP 07/17/20 Usha Simon APRN GRAPHICS INTERN [address] [address] Nurse Practitioner Neurological Surgery 01/24/24 Dangelo Salinas MD [address] [place] [address] Neurology 01/27/24 Anastasia Stearns, RN Lead Bogger Operator 02/06/24 Germaine Aleman, CHW Community Health Worker Primary Care - CC 02/18/24 Robin Zepeda MD [address] [address] Assigned Neuroscience Provider 03/08/24 05/07/24 Lisa Zambrano MD [address] [facility] [address] [place] [address] Assigned Heart and Vascular Provider 05/08/24 07/07/24 Raul Hoyos MD [address] [place] [address] Assigned Neuroscience Provider 05/08/24 07/07/24 Joya Lira [facility] [address] [place] [address] Pharmacist Pharmacist 05/25/24 Joya Lira [facility] [address] [place] [address] Assigned MTM Pharmacist 06/08/24 Fabi Coates MD [address] [place] [address] 75 [place] [address] Genetics, Clinical 06/18/24 Robin Zepeda MD [address] [place] [address] Assigned Neuroscience Provider 07/08/24 08/07/24 Danna Cardenas PA-C 6405 [place] [address] Assigned Heart and Vascular Provider 07/08/24 Felicita Desai, RN Lead Bogger Operator 07/14/24 07/28/24 Arthur Salas, [facility] [address] [place] [address] Assigned Behavioral Health Provider 08/08/24 Randy Maradiaga DO 909 [place], [place] 196625 Assigned Neuroscience Provider 08/08/24 Tete Wang MD 2450 [place], [place] 534564 Genetics, Clinical 10/30/24 documented as of this encounter
--- OUTSIDE RECORDS SUMMARY | 2024-11-08 11:16 | XMS_ITS | Encounter Summary ---
Author Organization [place] Address [address] [place] [address] Care Team Providers Care Process Project Engineer Name Role Phone Yung Madrigal MD Unavailable Unavailable Winston Villatoro OD Unavailable [phone] Denise Woodson APRN CUTTER FIRST Unavailable [phone] Denise Woodson APRN CUTTER FIRST Primary Care Provider Usha Simon APRN CUTTER FIRST Unavailable [phone] Dangelo Salinas MD Unavailable Usha Simon APRN CUTTER FIRST Unavailable Anastasia Stearns RN Unavailable Germaine Aleman CHW Unavailable Robin Zepeda MD Unavailable Lisa Zambrano MD Unavailable Raul Hoyos MD Unavailable Joya Lira [facility] Unavailable Joya Lira Joleen Unavailable Fabi Coates MD Unavailable [phone] Robin Zepeda MD Unavailable Danna Cardenas PA-C Unavailable Felicita Desai RN Unavailable Unavailab Arthur Rios Unavailable [phone] Randy Maradiaga DO Unavailable + Tete Wang MD Unavailable [phone] Reason for Visit * Reason Comments Medication Refill Encounter Details Date Type Department Care Team (Late st Contact Info) Description [facility]/07[facility]23 [facility] [address] [place] [address] Denise Woodson, [facility] [address] [place] [address] Medication Refill Social History Tobacco [...] on file Legal Sex Female 4:05 AM PRIMARY TEACHER Gender Identity Not on file Sexual [...] as final attempt to schedule. Karla Velasquez Merchandise Examiner * Telephone Encounter - Karla Morales - 01/17/2023 8:59 AM CDT LVM requesting a call back for an appt (physical). One more attempt will be made. Karla Velasquez Merchandise Examiner * Telephone Encounter - Arianna Lo - 01/10/2023 3:33 PM CDT Sent [place] message requesting a call back for an appt. Two more attempts will be made. Arianna Lo [place] Merchandise Examiner * Telephone Encounter - Leslie Mcclellan, RN [...] 0 0 0 Leslie Mcclellan RN, BSN [facility] documented in this encounter Plan of Treatment Upcoming Encounters Date Type Department Care Team (Late st Contact Info) Description 11/17/2024 2:30 PM PRIMARY TEACHER Virtual Visit [facility] [address] [facility] [place] [phone] Denise Woodson APRN CUTTER FIRST [address] [facility] [place] [address] 12/01/2024 4:00 PM CDT Virtual Visit [facility] Kate [address] [place] [phone] Lisa Zambrano MD [address] [place] [address] 12/03/2024 7:00 AM CDT Virtual Visit [facility] Neurology Clinic [address] [address] Randy Maradiaga [address] 524085 12/09/2024 12:45 PM CDT Office Visit [facility] [address] [place] [phone] Tete Wang MD [address] [place] [address] [phone] 12/09/2024 1:15 PM CDT Office Visit [facility] [address] [place] [address] [phone] Tete Wang MD [address] [place] [address] 566544 12/15/2024 3:00 PM CDT Virtual Visit [address] [address] Denise Woodson APRN [address] [address] 01/19/2025 PRE VISIT [facility] [address] [address] Any Joiner MD [address] [place] [address] *-*INCOMING RECORDS*-* 01/19/2025 3:00 PM CDT Orders Only [facility] Pulmonary Function Testing [address] [address] 01/19/2025 4:00 PM CDT Office Visit [facility] [address] [address] Any Joiner MD 420 [facility] 276 [place] [address] 06/01/2025 11:15 AM CDT Appointment [facility] Imaging [address] [place] [phone] Robin Zepeda MD [address] [place] [address] 06/04/2025 11:00 AM CDT Office Visit [facility] Neurosurgery [address] [phone] Robin Zepeda MD [address] [place] [address] Usha Simon APRN [address] [address] documented as of this encounter Visit Diagnoses Diagnosis Moderate persistent asthma without complication Unspecified asthma documented in this encounter Additional Health Concerns Infection Onset Date Last Indicated Resolved Time Rule Out COVID-19 09/13/2024 09/13/2024 09/13/2024 12:31 PM PRIMARY TEACHER Assessment Noted Time PHQ-9 Depression Total Score: 0 06/23/20 21 4:11 PM CDT documented as of this encounter Care Teams Process Project Engineer Relationship Specialty Start Date End Date Yung Madrigal MD RETIRED PCP - Orthopaedics Orthopedics 08/26/12 01/20/24 Winston Villatoro OD [facility] [place] [address] [place] [address] PCP - Ophthalmology Ophthalmology 02/11/13 Denise Woodson APRN CUTTER FIRST [address] [place] [address] PCP - General Family Practice 09/21/20 Denise Woodson APRN [employer] FIRST [address] [place] [address] Assigned PCP 07/17/20 Usha Simon APRN CUTTER FIRST [address] [place] [address] Nurse Practitioner Neurological Surgery 01/24/24 Dangelo Salinas MD [address] [place] [address] Neurology 01/27/24 Usha Simon APRN CUTTER FIRST [address] [address] Assigned Neuroscience Provider 02/06/24 03/07/24 Anastasia Stearns, RN Lead Digital Project Manager 02/06/24 Germaine Aleman, W Community Health Worker Primary Care - CC 02/18/24 Robin Zepeda MD [address] [address] Assigned Neuroscience Provider 03/08/24 05/07/24 Lisa Zambrano MD 6405 [facility] [address] [place] [address] Assigned Heart and Vascular Provider 05/08/24 07/07/24 Raul Hoyos MD 909 [facility] [place] [address] Assigned Neuroscience Provider 05/08/24 07/07/24 Joya Lira [facility] [address] [place] [address] Pharmacist Pharmacist 05/25/24 Joya Lira [facility] [address] [place] [address] Assigned MTM Pharmacist 06/08/24 Fabi Coates MD [address] [place] [address] 75 [place], [place] 382515 Genetics, Clinical 06/18/24 Robin Zepeda MD 909 [facility] [place] [address] Assigned Neuroscience Provider 07/08/24 08/07/24 Danna Cardenas PA-C 6405 [place] [address] Assigned Heart and Vascular Provider 07/08/24 Felicita Desai, RN Lead Digital Project Manager 07/14/24 07/28/24 Arthur Salas [facility] [address] [place] [address] Assigned Behavioral Health Provider 08/08/24 Randy Maradiaga DO 909 [place] [address] Assigned Neuroscience Provider 08/08/24 Tete Wang MD 2450 [place] [address] Genetics, Clinical 10/30/24 documented as of this encounter
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
--- OUTSIDE RECORDS SUMMARY | 2024-11-08 11:16 | XMS_ITS | Encounter Summary ---
Author Organization [facility] Address [address] [place] [address] Care Team Providers Care Health Promotion Coordinator Name Role Phone Winston Villatoro OD Unavailable [phone] Denise Woodson APRN CIVIL ENGINEERING INTERN Unavailable [phone] Denise Woodson APRN CIVIL ENGINEERING INTERN Primary Care Provider Usha Simon APRN CIVIL ENGINEERING INTERN Unavailable + [phone] Dangelo Salinas MD Unavailable Anastasia Stearns RN Unavailable [phone] Germaine Aleman CH Unavailable [phone] Robin Zepeda MD Unavailable [phone] Lisa Zmabrano MD Unavailable Raul Hoyos MD Unavailable Joya Lira RP Unavailable [phone] Joya Lira RPJoleen Unavailable [phone] Fabi Coates MD Unavailable [phone] Robin Zepeda MD Unavailable [phone] Danna CardenasC Unavailable [phone] Felicita Desai RN Unavailable Unavailab Arthur Rios Unavailable [phone] Randy Maradiaga DO Unavailable + Reason for Visit * Rehab Therapy Integrated Services (Routine) - Closed Specialty Diagnoses / Procedures Referred By Nila shah Referred To Contact Diagnoses Cerebrovascular accident (CVA), unspecified mechanism (H) [place] [address] [place] [address] Phone: tel: Referral ID Status Reason Start Date Expiration Date Visits Re quested Visits Authorized [id number] Closed 09/16/2023 09/15/2024 365 365 Encounter Details Date Type Department Care Team (Late st Contact Info) Description 04/02/2024 4:15 PM CDT Therapy Visit [facility] 150 [place] [address] Danya You, AMAIRANI [address] [place] [address] Delicia George, PT 150 [place] [address] Cerebrovascular accident (CVA), unspecified mechanism [...] Never 09/16/2024 How often do you attend scientology or zoroastrian serv ices? 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 Don't push to an increase in [...] continue home program. Referring Provider: Danya You F CONTROLLER documented in this encounter Plan of Treatment Upcoming Encounters Date Type Department Care Team (Late st Contact Info) Description 11/17/2024 2:30 PM CHIEF CONTROLLER Virtual Visit [facility] [address] [place] [phone] Denise Woodson APRN CIVIL ENGINEERING INTERN [address] [place], [place] [phone] 12/01/2024 4:00 PM CDT Virtual Visit [facility] V[facility] Clinic Kate [address] [place] [phone] Lisa Zambrano MD [address] [place] [address] 12/03/2024 7:00 AM CDT Virtual Visit [facility] [address] [phone] Randy Maradiaga DO [address] [place] [address] 897545 12/09/2024 12:45 PM CDT Office Visit [facility] [address] [place] [address] [phone] Tete Wang MD [address] [place] [address] 975224 12/09/2024 1:15 PM CDT Office Visit [facility] [address] [place] [address] [phone] Tete Wang MD [address] [place] [address] 872664 12/15/2024 3:00 PM CDT Virtual Visit [facility] [address] [place] [address] [phone] Denise Woodson APRN [facility] [id number] [place] [address] 01/19/2025 PRE VISIT [facility] [address] [phone] Any Joiner MD [address] [place] [address] *-*INCOMING RECORDS*-* 01/19/2025 3:00 PM CDT Orders Only [facility] Pulmonary Function Testing [address] 3[address] [place] [phone] 01/19/2025 4:00 PM CDT Office Visit [facility] [address] [phone] Any Joiner MD 420 [facility] 276 [place], [place] [address] 06/01/2025 11:[address] [facility] Imaging [address] [place] [phone] Robin Zepeda MD [address] [place] [address] 06/04/2025 11:00 AM CDT Office [facility] [address] [phone] Robin Zepeda MD [address] [place] [address] [phone] Usha Simon APRN [address] [address] documented as of this encounter Visit Diagnoses Diagnosis Cerebrovascular accident (CVA), unspecified mechanism (H)- Primary documented in this encounter Additional Health Concerns Infection Onset Date Last Indicated Resolved Time Rule Out COVID-19 09/13/2024 09/13/2024 09/13/2024 12:31 PM CHIEF CONTROLLER Assessment Noted Time PHQ-9 Depression Total Score: 5 03/17/20 24 9:45 AM CDT documented as of this encounter Care Teams Health Promotion Coordinator Relationship Specialty Start Date End Date Winston Villatoro OD [facility] [place] [address] [place] [address] PCP - Ophthalmology Ophthalmology 02/11/13 Denise Woodson APRN CIVIL ENGINEERING INTERN [address] [place] [address] PCP - General Family Practice 09/21/20 Denise Woodson APRN CIVIL ENGINEERING INTERN [address] [place] [address] Assigned PCP 07/17/20 Usha Simon APRN CIVIL ENGINEERING INTERN [address] [address] Nurse Practitioner Neurological Surgery 01/24/24 Dangelo Salinas MD [address] [place] [address] Neurology 01/27/24 Anastasia Stearns, RN Lead Ultrasonic Tester 02/06/24 Germaine Aleman, W Community Health Worker Primary Care - CC 02/18/24 Robin Zepeda MD [address] [address] Assigned Neuroscience Provider 03/08/24 05/07/24 Lisa Zambrano MD [address] [place] [address] Assigned Heart and Vascular Provider 05/08/24 07/07/24 Raul Hoyos MD [address] [place] [address] Assigned Neuroscience Provider 05/08/24 07/07/24 Joya Lira [facility] [address] [place] [address] Pharmacist Pharmacist 05/25/24 Joya Lira [facility] [address] [place] [address] Assigned MTM Pharmacist 06/08/24 Fabi Coates MD [address] [place] [address] 75 [place] [address] Genetics, Clinical 06/18/24 Robin Zepeda MD [address] [address] Assigned Neuroscience Provider 07/08/24 08/07/24 Danna Cardenas PA-C [address] [place] [address] Assigned Heart and Vascular Provider 07/08/24 Felicita Desai RN Lead Ultrasonic Tester 07/14/24 07/28/24 Arthur Salas, [facility] [address] [place] [address] Assigned Behavioral Health Provider 08/08/24 Randy Maradiaga DO [address] [place] [address] Assigned Neuroscience Provider 08/08/24 documented as of this encounter
--- OUTSIDE RECORDS SUMMARY | 2024-11-08 11:16 | XMS_ITS | Encounter Summary ---
Author Organization [facility] Address [address] [place] [address] Care Team Providers Care Cause Analyst Name Role Phone Winston Villatoro OD Unavailable [phone] Denise Woodson APRN ORE GRADER Unavailable [phone] Denise Woodson APRN ORE GRADER Primary Care Provider Usha Simon APRN ORE GRADER Unavailable + [phone] Dangelo Salinas MD Unavailable Anastasia Stearns RN Unavailable [phone] Germaine Aleman [facility] Unavailable [phone] Joya Lira [facility] Unavailable [phone] Joya Lira [facility] Unavailable [phone] Fabi Coates MD Unavailable [phone] Danna Cardenas PA-C Unavailable [phone] Arthur Salas FLARE STITCHER Unavailable +[phone] Randy Maradiaga DO Unavailable + Tete Wang MD Unavailable [phone] Reason for Visit * Reason Onset Date Comments Forms 10/14/2024 Return to Work Encounter Details Date Type Department Care Team (Late st Contact Info) Description 10/14/2024 MyC Medical Advice [facility] [address] [place] [address] Denise Woodson APRN [facility] [address] [facility] [place] [address] Forms (Return to Work) Social [...] Never 09/16/2024 How often do you attend orthodox or congregational serv ices? 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 Qing Copeland Lead Audio Production Manager [facility] Phoebe Gross AND FISH PROTECTOR * Telephone Encounter - Qing Copeland - 10/15/2024 7:00 AM CST Forms/Letter Request Type of form/letter: OTHER: Return to Work Do we have the form/letter: Yes: [employer] Return to Work/Workability Who is the form from? Patient Where did/will the form come from? form was sent via FXTrip When is form/letter needed by: FIFI How would you like the form/letter returned: FXT[employer] Patient Notified form requests are processed in 5-7 business days:N/A Could we send this information to you in FXTrip or would you prefer to receive a phone call?: Patient would like to be contacted via Motwint Placed form in provider's basket for review and signature Qing Copeland Lead Audio Production Manager [facility] Phoebe Gross AND FISH PROTECTOR documented in this encounter Plan of Treatment Upcoming Encounters Date Type Department Care Team (Late st Contact Info) Description 11/17/2024 2:30 PM GAME AND FISH PROTECTOR Virtual Visit [facility] [address] [place] [phone] Denise Woodson APRN ORE GRADER [address] [place], [place] [phone] 12/01/2024 4:00 PM CDT Virtual Visit [facility] Vascular [facility] [place] [address] [place] [place] [phone] Lisa Zambrano MD [address] [place] [address] 12/03/2024 7:00 AM CDT Virtual Visit [facility] Neurology Clinic [address] [phone] Randy Maradiaga DO [address] [place] [address] 580085 12/09/2024 12:45 PM CDT Office Visit [facility] Pediatric Specialty Clinic [address] [place] [address] [phone] Tete Wang MD [address] [place] [address] 849004 12/09/2024 1:15 PM CDT Office Visit [facility]ty Clinic [address] [place] [address] [phone] Tete Wang MD [address] [place] [address] [id number] 12/15/2024 3:00 PM CDT Virtual Visit [facility] [address] [place] [address] Denise Woodson APRN [facility] [address] [place], [place] 3828368 01/19/2025 PRE VISIT [facility] [address] [phone] Any Joiner MD [address] [place] [address] *-*INCOMING RECORDS*-* 01/19/2025 3:00 PM CDT Orders Only [facility] Pulmonary Function Testing [address] 3rd [place] [address] 01/19/2025 4:00 PM CDT Office Visit [facility] [address] [phone] Any Joiner MD 420 [facility] 276 [place], [place] 3864[address] 06/01/2025 11:[address] [facility] Imaging [address] [place] [phone] Robin Zepeda MD [address] [place] [address] 06/04/2025 11:00 AM CDT Office Visit [facility] Neurosurgery [address] 3rd [place] [phone] Robin Zepeda MD [address] [place] [address] [phone] Usha Simon APRN ORE GRADER [address] [place] [address] 710085 documented as of this encounter Visit Diagnoses Not on filedocumented in this encounter Additional Health Concerns Assessment Noted Time PHQ-9 Depression Total Score: 0 09/18/19 25 12:46 PM GAME AND FISH PROTECTOR documented as of this encounter Care Teams Cause Analyst Relationship Specialty Start Date End Date Winston Villatoro OD [facility] [place] [address] [place] [address] PCP - Ophthalmology Ophthalmology 02/11/13 Denise Woodson APRN ORE GRADER [address] [place] [address] PCP - General Family Practice 09/21/20 Denise Woodson APRN ORE GRADER [address] [place] [address] Assigned PCP 07/17/20 Usha Simon APRN ORE GRADER 909 [facility] [id number] [place] [address] Nurse Practitioner Neurological Surgery 01/24/24 Dangelo Salinas MD [address] [place] [address] Neurology 01/27/24 Anastasia Stearns, RN Lead It Admin 02/06/24 Germaine Aleman, W Community Health Worker Primary Care - CC 02/18/24 Joya Lira [facility] [address] [place] [address] Pharmacist Pharmacist 05/25/24 Joya Lira [facility] [address] [place] [address] Assigned MTM Pharmacist 06/08/24 Fabi Coates MD [address] [place] [address] 75 [place] [address] Genetics, Clinical 06/18/24 Danna Cardenas PA-C 6405 [place] [address] Assigned Heart and Vascular Provider 07/08/24 Arthur Salas LICSW [address] [address] Assigned Behavioral Health Provider 08/08/24 Randy Maradiaga DO 909 [place] [address] Assigned Neuroscience Provider 08/08/24 Tete Wang MD [facility] [place] [address] Genetics, Clinical 10/30/24 documented as of this encounter
--- OUTSIDE RECORDS SUMMARY | 2024-11-08 11:16 | XMS_ITS | Encounter Summary ---
Author Organization [facility] Address [address] [place] [address] Care Team Providers Care Occ Therapist Name Role Phone Winston Villatoro OD Unavailable [phone] Denise Woodson APRN INSURANCE BROKER Unavailable [phone] Denise Woodson APRN INSURANCE BROKER Primary Care Provider Usha Simon APRN INSURANCE BROKER Unavailable + [phone] Dangelo Salinas MD Unavailable Anastasia Stearns RN Unavailable Germaine Aleman [facility] Unavailable Joya Lira [facility] Unavailable Joya Lira [facility] Unavailable [phone] Fabi Coates MD Unavailable [phone] Danna Cardenas PA-C Unavailable [phone] Arthur Salas FINAL ASSEMBLY WORKER Unavailable [phone] Randy Maradiaga DO Unavailable + Encounter Details Date Type Department Care Team (Late st Contact Info) Description 10/14/2024 Telephone [facility] [address] [place] [address] Denise Woodson APRN INSURANCE BROKER [address] [place] [address] Social History Tobacco Use Types Packs/Day Years [...] Never 09/16/2024 How often do you attend quaker or moravian serv ices? 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 Nicolasa Badillo Camper Assembler UNICATIONS TECHNOLOGIST documented in this encounter Plan of Treatment Upcoming Encounters Date Type Department Care Team (Late st Contact Info) Description 11/17/2024 2:30 PM COMMUNICATIONS TECHNOLOGIST Virtual Visit [facility] [address] [place] [phone] Denise Woodson APRN [facility] [address] [place], [place] [phone] 12/01/2024 4:00 PM CDT Virtual Visit [facility] Vascular [facility] [address] [place] [phone] Lisa Zambrano MD [address] [place], [place] [address] 12/03/2024 7:00 AM CDT Virtual Visit [facility] Neurology Clinic [address] [phone] Randy Maradiaga, [address] [place] [address] 274235 12/09/2024 12:45 PM CDT Office Visit [facility] Pediatric Specialty Clinic [address] [place] [address] [phone] Tete Wang MD [address] [place] [address] 422424 12/09/2024 1:15 PM CDT Office Visit [facility] Pediatric Specialty Clinic [address] [place], [place] [address] [phone] Tete Wang MD 2450 [place] [address] 12/15/2024 3:00 PM CDT Virtual Visit [facility] [address] [place] [phone] Denise Woodson APRN INSURANCE BROKER [address] [place] [address] 01/19/2025 PRE VISIT [facility] Lung Science [address] [phone] Any Joiner MD [address] [place] [address] *-*INCOMING RECORDS*-* 01/19/2025 3:00 PM CDT Orders Only [facility] Pulmonary Function Testing [address] [place] [phone] 01/19/2025 4:00 PM CDT Office Visit [facility] Science [address] [phone] Any Joiner MD [address] [place] [address] [phone] 06/01/2025 11:15 AM CDT Appointment [facility] Imaging [address] [place] [address] Robin Zepeda MD [address] [place] [address] [id number] [place] [address] 06/04/2025 11:00 AM CDT Office Visit [facility] [address] [place] [phone] Robin Zepeda MD [address] [address] Usha Simon APRN INSURANCE BROKER [address] [address] documented as of this encounter Visit Diagnoses Not on filedocumented in this encounter Additional Health Concerns Assessment Noted Time PHQ-9 Depression Total Score: 0 09/18/19 25 12:46 PM COMMUNICATIONS TECHNOLOGIST documented as of this encounter Care Teams Occ Therapist Relationship Specialty Start Date End Date Winston Villatoro OD [facility] [place] [address] [place] [address] PCP - Ophthalmology Ophthalmology 02/11/13 Denise Woodson APRN INSURANCE BROKER [address] [place] [address] PCP - General Family Practice 09/21/20 Denise Woodson APRN INSURANCE BROKER [address] [place] [address] Assigned PCP 07/17/20 Usha Simon APRN INSURANCE BROKER [address] [place] [address] Nurse Practitioner Neurological Surgery 01/24/24 Dangelo Salinas MD [address] [id number] Neurology 01/27/24 Anastasia Stearns, RN Lead Cash Checker 02/06/24 Germaine Aleman, CHW Community Health Worker Primary Care - CC 02/18/24 Joya Lira RPH [address] [place] [address] Pharmacist Pharmacist 05/25/24 Joya Lira RPH [address] [place] [address] Assigned MTM Pharmacist 06/08/24 Fabi Coates MD [address] [place] [address] 75 [place], [place] 0[address]75 Genetics, Clinical 06/18/24 Danna Cardenas PA-C 6405 [place] [address] Assigned Heart and Vascular Provider 07/08/24 Arthur Salas LICSW [address] [phone] Assigned Behavioral Health Provider 08/08/24 Randy Maradiaga DO 909 [place], [place] 527635 Assigned Neuroscience Provider 08/08/24 documented as of this encounter
--- OUTSIDE RECORDS SUMMARY | 2024-11-08 11:16 | XMS_ITS | Encounter Summary ---
Author Organization [place] Address [address] [place] [address] Care Team Providers Care Inspector And Adjuster Golf Club Head Name Role Phone Winston Villatoro OD Unavailable [phone] Denise Woodson APRN TEACHER VOCATIONAL TRAINING Unavailable [phone] Denise Woodson APRN TEACHER VOCATIONAL TRAINING Primary Care Provider Usha Simon APRN TEACHER VOCATIONAL TRAINING Unavailable + [phone] Dangelo Salinas MD Unavailable Anastasia Stearns RN Unavailable [phone] Germaine Aleman [facility] Unavailable [phone] Joya Lira [facility] Unavailable [phone] Joya Lira [facility] Unavailable [phone] Fabi Coates MD Unavailable [phone] Danna Cardenas PA-C Unavailable [phone] Arthur Salas SALES EXECUTIVE Unavailable [phone] Randy Maradiaga DO Unavailable + Tete Wang MD Unavailable +[phone] Encounter Details Date Type Department Care Team (Late st Contact Info) Description 10/21/2024 [facility] Neurology Clinic [address] [place] [address] Laronfortunato Randy Yobany, DO 909 [place] [address] Social History Tobacco Use Types [...] Never 09/16/2024 How often do you attend orthodoxy or sabianism serv ices? 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 [place] [phone] Lisa Zambrano MD [address] [place] [address] 12/03/2024 7:00 AM CDT Virtual Visit [facility] Neurology [address] [phone] Randy Maradiaga [address] 256[address] 12/09/2024 12:45 PM CDT Office Visit [facility] [address] [place] [address] [phone] Tete Wang MD [address] [place] [address] 12/09/2024 1:15 PM CDT Office Visit [facility] [address] [place] [address] [phone] Tete Wang MD [address] [place] [address] 334524 12/15/2024 3:00 PM CDT Virtual Visit [facility] [address] [place] [phone] Denise Woodson APRN TEACHER VOCATIONAL TRAINING [address] [place] [address] 01/19/2025 PRE VISIT [facility] Lung Science [address] [phone] Any Joiner MD [address] [place] [address] 563955 *-*INCOMING RECORDS*-* 01/19/2025 3:00 PM CDT Orders Only [facility] Pulmonary Function Testing [address] [phone] 01/19/2025 4:00 PM CDT Office Visit [facility] Lung Science [address] [phone] Any Joiner MD [address] [place] [address] 424815 06/01/2025 11:15 AM CDT Appointment [facility] Imaging [address] [facility] [address] [place] [phone] Robin Zepeda MD [address] [place] [address] 06/04/2025 11:00 AM CDT Office Visit [facility] Clinic [address] [phone] Robin Zepeda MD [address] [place] [address] 609325 Usha Simon APRN [address] 422655 documented as of this encounter Visit Diagnoses Not on filedocumented in this encounter Additional Health Concerns Assessment Noted Time PHQ-9 Depression Total Score: 0 09/18/19 25 12:46 PM SCRUFF WORKER documented as of this encounter Care Teams Inspector And Adjuster Golf Club Head Relationship Specialty Start Date End Date Winston Villatoro OD [facility] [place] [address] [place] [address] PCP - Ophthalmology Ophthalmology 02/11/13 Denise Woodson APRN TEACHER VOCATIONAL TRAINING [address] [address] [place] [address] PCP - General Family Practice 09/21/20 Denise Woodson APRN TEACHER VOCATIONAL TRAINING [address] [address] [facility] [place] [address] Assigned PCP 07/17/20 Usha Simon APRN TEACHER VOCATIONAL TRAINING 9 [facility] [address] Nurse Practitioner Neurological Surgery 01/24/24 Dangelo Salinas MD [address] [place] [address] Neurology 01/27/24 Anastasia Stearns, RN Lead Ground Worker 02/06/24 Germaine Aleman CHW Community Health Worker Primary Care - CC 02/18/24 Joya Lira R[facility] [address] [place] [address] Pharmacist Pharmacist 05/25/24 Joya Lira R[facility] [address] [place] [address] Assigned MTM Pharmacist 06/08/24 Fabi Coates MD [address] [place] [address] 75 [place] [address] Genetics, Clinical 06/18/24 Danna Cardenas PA-C [address] [place] [address] Assigned Heart and Vascular Provider 07/08/24 Arthur Salas [facility] [address] [address] Assigned Behavioral Health Provider 08/08/24 Randy Maradiaga DO [address] [place] [address] Assigned Neuroscience Provider 08/08/24 Tete Wang MD [address] [place] [address] 700874 Genetics, Clinical 10/30/24 documented as of this encounter
--- OUTSIDE RECORDS SUMMARY | 2024-11-08 11:16 | XMS_ITS | Encounter Summary ---
Author Organization [place] Address [address] [place] [address] Care Team Providers Care Relations Director Name Role Phone Winston Villatoro OD Unavailable [phone] Denise Woodson APRN FRESH FOODS CLERK Unavailable +[phone] Denise Woodson APRN FRESH FOODS CLERK Primary Care Provider Usha Simon APRN FRESH FOODS CLERK Unavailable + [phone] Dangelo Salinas MD Unavailable Anastasia Stearns RN Unavailable Germaine Aleman [facility] Unavailable +[phone] Lisa Zambrano MD Unavailable + [phone] Raul Hoyos MD Unavailable [phone] Joya Lira [facility] Unavailable [phone] Joya Lira [facility] Unavailable [phone] Fabi Coates MD Unavailable [phone] Robin Zepeda MD Unavailable [phone] Danna Cardenas PA-C Unavailable +[phone] Felicita Desai RN Unavailable Unavailab Arthur Rios Unavailable +[phone] Randy Maradiaga DO Unavailable + Tete Wang MD Unavailable Encounter Details Date Type Department Care Team (Late st Contact Info) Description 07/07/2024 Ajay Medical Advice [facility] [address] [place] [phone] Liliane Cobos Social History Tobacco Use Types [...] How often do you attend taoist or zoroastrianism serv ices? 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 [place] [address] Lisa Zambrano MD [address] [place] [id number] 12/03/2024 7:00 AM CDT Virtual Visit [facility] Neurology [address] [phone] Randy Maradiaga, [address] [address] 12/09/2024 12:45 PM CDT Office Visit [facility] [address] [place] [address] [phone] Tete Wang MD [address] [place] [address] 12/09/2024 1:15 PM CDT Office Visit [facility] [address] [place] [address] [phone] Tete Wang MD [address] [place] [address] 12/15/2024 3:00 PM CDT Virtual Visit [facility] [address] [place] [phone] Denise Woodson APRN FRESH FOODS CLERK [address] [place], [place] 0131668 01/19/2025 PRE VISIT [facility] Science [address] [phone] Any Joiner MD [address] [place] [address] 430515 *-*INCOMING RECORDS*-* 01/19/2025 3:00 PM CDT Orders Only [facility] Pulmonary Function Testing [address] [phone] 01/19/2025 4:00 PM CDT Office Visit [facility] Science [address] [phone] Any Joiner MD [address] [place] [address] 144555 06/01/2025 11:[address] [facility] Imaging [address] [facility] [address] [place] [phone] Robin Zepeda MD [address] [place] [address] 772665 06/04/2025 11:00 AM CDT Office Visit [address] [phone] Robin Zepeda MD [address] [place] [address] 372765 Usha Simon APRN FRESH FOODS CLERK [address] [place] [address] documented as of this encounter Visit Diagnoses Not on filedocumented in this encounter Additional Health Concerns Infection Onset Date Last Indicated Resolved Time Rule Out COVID-19 09/13/2024 09/13/2024 09/13/2024 12:31 PM GLASSWORKER Assessment Noted Time PHQ-9 Depression Total Score: 5 03/17/20 24 9:45 AM CDT documented as of this encounter Care Teams Relations Director Relationship Specialty Start Date End Date ShaunaWinston OD [facility] [place] [address] [place] [address] PCP - Ophthalmology Ophthalmology 02/11/13 Denise Woodson APRN FRESH FOODS CLERK [address] [place] [address] PCP - General Family Practice 09/21/20 Denise Woodson APRN FRESH FOODS CLERK [address] [place] [address] Assigned PCP 07/17/20 Usha Simon APRN FRESH FOODS CLERK 909 [facility] [place]8[place] [address] Nurse Practitioner Neurological Surgery 01/24/24 Dangelo Salinas MD [address] [place] [address] Neurology 01/27/24 Anastasia Stearns, RN Lead Japanese Tutor 02/06/24 Germaine Aleman, CHW Community Health Worker Primary Care - CC 02/18/24 Lisa Zambrano MD 6405 [facility] [address] [place] [address] Assigned Heart and Vascular Provider 05/08/24 07/07/24 Raul Hoyos MD 909 [facility] [place] [address] Assigned Neuroscience Provider 05/08/24 07/07/24 Joya Lira [facility] [address] [place] [address] Pharmacist Pharmacist 05/25/24 Joya Lira [facility] [address] [place] [address] Assigned MTM Pharmacist 06/08/24 Fabi Coates MD [address] [place] [address] 75 [place] [address] Genetics, Clinical 06/18/24 Robin Zepeda MD 909 [facility]121[place] [address] Assigned Neuroscience Provider 07/08/24 08/07/24 Danna Cardenas PA-C 6405 [place] [address] Assigned Heart and Vascular Provider 07/08/24 Felicita Desai, RN Lead Japanese Tutor 07/14/24 07/28/24 Arthur Salas, [facility] [address] [place] [address] Assigned Behavioral Health Provider 08/08/24 Randy Maradiaga DO 909 [place] [address] Assigned Neuroscience Provider 08/08/24 Tete Wang MD 2450 [place] [address] Genetics, Clinical 10/30/24 documented as of this encounter
--- OUTSIDE RECORDS SUMMARY | 2024-11-08 11:16 | XMS_ITS | Encounter Summary ---
Author Organization [facility] Address [address] [place] [address] Care Team Providers Care Solutions Executive Cloud Sales Name Role Phone Winston Villatoro OD Unavailable [phone] Denise Woodson APRN MINI SHIFTER Unavailable [phone] Denise Woodson APRN MINI SHIFTER Primary Care Provider Usha Simon APRN MINI SHIFTER Unavailable + [phone] Dangelo Salinas MD Unavailable Anastasia Stearns RN Unavailable Germaine Aleman [facility] Unavailable [phone] Lisa Zambrano MD Unavailable + [phone] Raul Hoyos MD Unavailable Joya Lira [facility] Unavailable [phone] Joya Lira [facility] Unavailable [phone] Fabi Coates MD Unavailable [phone] Robin Zepeda MD Unavailable [phone] Danna Cardenas PA-C Unavailable [phone] Felicita Desai RN Unavailable Unavailab Arthur Rios Unavailable [phone] Randy Maradiaga DO Unavailable + Tete Wang MD Unavailable +[phone] Encounter Details Date Type Department Care Team (Late st Contact Info) Description 05/11/2024 MyC Medical Advice [facility] [address] [place] [address] Denise Woodson MEAT PUMPER [facility] [address] [place] [address] Social History Tobacco Use [...] How often do you attend restorationist or orthodox serv ices? Never 02/28/2024 Do [...] Answer Date Recorded PHQ-2 Score 2 05/05/2024 [facility] [place] of Occupat ional Health - Occupational [...] an overnight care home, or couch-surfing.) Yes 05/15/2024 Are you [...] on file Legal Sex Female 4:05 AM DOCUMENTATION MANAGER Gender Identity Not on file Sexual [...] to provider as FYI. Qing Copeland Lead Ticket Dispenser [facility] documented in this encounter Plan of Treatment Upcoming Encounters Date Type Department Care Team (Late st Contact Info) Description 11/17/2024 2:30 PM DOCUMENTATION MANAGER Virtual Visit [facility] [address] [place] [phone] Chintan, DeniseBARRERA diaz MINI SHIFTER [address] [place], [place] 5889568 12/01/2024 4:00 PM CDT Virtual Visit [facility] [place] [address] [place] [phone] Lisa Zambrano MD [address] [place] [address] 12/03/2024 7:00 AM CDT Virtual Visit [facility] Neurology [address] 3rd [place] [address] Randy Maradiaga, DO [address] [place] [address] 12/09/2024 12:45 PM CDT Office Visit [facility] Pediatric Specialty Clinic [address] [place] [phone] Tete Wang MD [address] [place] [address] [phone] 12/09/2024 1:15 PM CDT Office Visit [facility] [address] [place] [phone] Tete Wang MD [address] [place] [address] [phone] 12/15/2024 3:00 PM CDT Virtual Visit [facility] [address] [place] [address] Denise Woodson APRN [facility] [address] [place] [address] [id number] 01/19/2025 PRE VISIT [facility] for [facility] and Health [address] [phone] Any Joiner MD [address] [place] [address] 297715 *-*INCOMING RECORDS*-* 01/19/2025 3:00 PM CDT Orders Only [facility] Pulmonary Function Testing [address] 3rd [place] [address] 01/19/2025 4:00 PM CDT Office Visit [facility] Health [address] [phone] Any Joiner MD [address] [place] [facility] [address] [place], [place] 802655 06/01/2025 11:15 AM CDT Appointment [facility] Imaging [address] [place] [phone] Robin Zepeda MD [address] [place] [address] 647515 06/04/2025 11:00 AM CDT Office Visit [facility] Neurosurgery [facility] [address] 3rd [place] [phone] Robin Zepeda MD [address] [place] [address] 208415 Usha Simon APRN MINI SHIFTER [address] [place] [address] documented as of this encounter Visit Diagnoses Not on filedocumented in this encounter Additional Health Concerns Infection Onset Date Last Indicated Resolved Time Rule Out COVID-19 09/13/2024 09/13/2024 09/13/2024 12:31 PM DOCUMENTATION MANAGER Assessment Noted Time PHQ-9 Depression Total Score: 5 03/17/20 24 9:45 AM CDT documented as of this encounter Care Teams Solutions Executive Cloud Sales Relationship Specialty Start Date End Date Winston Villatoro OD [facility] [place] [address] [place] [address] PCP - Ophthalmology Ophthalmology 02/11/13 Denise Woodson APRN MINI SHIFTER [address] [place] [address] PCP - General Family Practice 09/21/20 Denise Woodson APRN MINI SHIFTER [address] [place] [address] Assigned PCP 07/17/20 Usha Simon APRN MINI SHIFTER [address] 853065 Nurse Practitioner Neurological Surgery 01/24/24 Dangelo Salinas MD [address] [place] [address] Neurology 01/27/24 Anastasia Stearns, RN Lead Glue Wheel Operator 02/06/24 Germaine Aleman, W Community Health Worker Primary Care - CC 02/18/24 Lisa Zambrano MD 6405 [facility] [address] [place] 496195 Assigned Heart and Vascular Provider 05/08/24 07/07/24 Raul Hoyos MD [address] [phone] Assigned Neuroscience Provider 05/08/24 07/07/24 Joya Lira [facility] [address] [place] [address] Pharmacist Pharmacist 05/25/24 Joya Lira [facility] [address] [place] [address] Assigned MTM Pharmacist 06/08/24 Fabi Coates MD 420 [facility] 75 [place] [address] Genetics, Clinical 06/18/24 Robin Zepeda MD 909 [facility] [id number] [place] [address] Assigned Neuroscience Provider 07/08/24 08/07/24 Danna Cardenas PA-C 6405 [place] [address] Assigned Heart and Vascular Provider 07/08/24 Felicita Desai RN Lead Glue Wheel Operator 07/14/24 07/28/24 Arthur Salas [facility] [address] [place] [address] Assigned Behavioral Health Provider 08/08/24 Randy Maradiaga DO [address] [place] [address] Assigned Neuroscience Provider 08/08/24 Tete Wang MD [address] [place] [address] Genetics, Clinical 10/30/24 documented as of this encounter
--- OUTSIDE RECORDS SUMMARY | 2024-11-08 11:17 | XMS_ITS | Encounter Summary ---
Author Organization [place] Address [address] [place] [address]15 Care Team Providers Care Payroll Accounting Specialist Name Role Phone Yung Madrigal MD Unavailable Unavailable Winston Villatoro OD Unavailable [phone] Denise Woodson APRN CERTIFIED PHARMACY TECHNICIAN Unavailable [phone] Denise Woodson APRN CERTIFIED PHARMACY TECHNICIAN Primary Care Provider Usha Simon APRN CERTIFIED PHARMACY TECHNICIAN Unavailable [phone] Dangelo Salinas MD Unavailable Usha Simon APRN CERTIFIED PHARMACY TECHNICIAN Unavailable Anastasia Stearns RN Unavailable [phone] Germaine Aleman CHW Unavailable [phone] Robin Zepeda MD Unavailable Lisa Zambrano MD Unavailable Raul Hoyos MD Unavailable [phone] Joya Lira [facility] Unavailable Joya Lira Joleen Unavailable [phone] Fabi Coates MD Unavailable [phone] Robin Zepeda MD Unavailable Danna Cardenas PA-C Unavailable Felicita Desai RN Unavailable Unavailab Arthur Rios Unavailable +[phone] Randy Maradiaga DO Unavailable + Tete Wang MD Unavailable [phone] Reason for Visit * Reason Comments Medication Refill Encounter Details Date Type Department Care Team (Late st Contact Info) Description 06/11/2021 Refill [facility] [address] [facility] [address] [place] [phone] Denise Woodson, BARRERA CERTIFIED PHARMACY TECHNICIAN [address] [place] [id number] Medication Refill Social History Tobacco Use Types Packs/Day Years Used Date Smoking Tobacco: Never Smokeless Tobacco: Never Alcohol Use Standard Drinks/Week Comments Not Currently 0 (1 standard drink = 0.6 oz pur e alcohol) minimal PHQ-2 Answer Date Recorded PHQ-2 Score 0 01/04/2021 Comments No Sex and Gender Information Value Date Recorded Sex Assigned at Not on file Legal Sex Female 4:05 AM BARGE PILOT Gender Identity Not on file Sexual Orientation Not on file 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 [place] [phone] Lisa Zambrano MD [address] [place] [address] 12/03/2024 7:00 AM CDT Virtual Visit [facility] Neurology [address] [place] [phone] Randy Maradiaga DO [address] [place] [address] 760105 12/09/2024 12:45 PM CDT Office Visit [facility] Pediatric Specialty Clinic [address] [place] [address] [phone] Tete Wang MD [address] [place] [address] 723104 12/09/2024 1:15 PM CDT Office Visit [facility] Pediatric Specialty Clinic [address] [place] [address] [phone] Tete Wang MD [address] [place] [address] [phone] 12/15/2024 3:00 PM CDT Virtual Visit [facility] [address] [place] [address] Denise Woodson APRN [facility] [address] [place], [place] 5674668 01/19/[address] [facility] Clinic [address] [phone] Any Joiner MD [address] [place] [address] 087775 *-*INCOMING RECORDS*-* 01/19/2025 3:00 PM CDT Orders Only [facility] Pulmonary Function Testing [place] 909 [facility] 3rd [place] [phone] 01/19/2025 4:00 PM CDT Office Visit [facility] [address] [phone] Any Joiner MD 420 [facility] 276 [place], [place] 142495 06/01/2025 11:15 AM CDT Appointment [facility] Imaging [address] [place] [address] Robin Zepeda MD [address] [place] [address] 946105 06/04/2025 11:00 AM CDT Office Visit [facility] Neurosurgery Clinic [address] [phone] Robin Zepeda MD [address] [place] [address] 819765 Usha Simon APRN [address] 071585 documented as of this encounter Visit Diagnoses Diagnosis Insomnia, unspecified type documented in this encounter Additional Health Concerns Infection Onset Date Last Indicated Resolved Time Rule Out COVID-19 09/13/2024 09/13/2024 09/13/2024 12:31 PM BARGE PILOT Assessment Noted Time PHQ-9 Depression Total Score: 0 01/05/20 21 9:31 AM CDT documented as of this encounter Care Teams Payroll Accounting Specialist Relationship Specialty Start Date End Date Yung Madrigal MD RETIRED PCP - Orthopaedics Orthopedics 08/26/12 01/20/24 Winston Villatoro OD [facility] [place] [address] [place] [address] PCP - Ophthalmology Ophthalmology 02/11/13 Denise Woodson APRN CERTIFIED PHARMACY TECHNICIAN [address] [place] [address] PCP - General Family Practice 09/21/20 Denise Woodson APRN CERTIFIED PHARMACY TECHNICIAN [address] [place] [address] Assigned PCP 07/17/20 Usha Simon APRN CERTIFIED PHARMACY TECHNICIAN [address] [place] [address] 533885 Nurse Practitioner Neurological Surgery 01/24/24 Dangelo Salinas MD [address] [place], [place] [phone] Neurology 01/27/24 Usha Siomn APRN CERTIFIED PHARMACY TECHNICIAN [address] 807835 Assigned Neuroscience Provider 02/06/24 03/07/24 Anastasia Stearns, RN Lead Lab Assistant 02/06/24 Germaine Aleman, W Community Health Worker Primary Care - CC 02/18/24 Robin Zepeda MD [address] 807675 Assigned Neuroscience Provider 03/08/24 05/07/24 Lisa Zambrano MD 6405 [facility] [address] [place] [address] Assigned Heart and Vascular Provider 05/08/24 07/07/24 Raul Hoyos MD [address] [address] Assigned Neuroscience Provider 05/08/24 07/07/24 Joya Lira [facility] [address] [facility] [place] [address] Pharmacist Pharmacist 05/25/24 Joya Lira [facility] [address] [place] [address] Assigned MTM Pharmacist 06/08/24 Fabi Coates MD [address] [place] [address] 75 [place] [address] Genetics, Clinical 06/18/24 Robin Zepeda MD [address] [place] [address] Assigned Neuroscience Provider 07/08/24 08/07/24 Danna Cardenas PA-C 6405 [place] [address] Assigned Heart and Vascular Provider 07/08/24 Felicita Desai RN Lead Lab Assistant 07/14/24 07/28/24 Arthur Salas [facility] [address] [place] [address] Assigned Behavioral Health Provider 08/08/24 Randy Maradiaga DO [address] [place] [address] Assigned Neuroscience Provider 08/08/24 Tete Wang MD 2450 [place], [place] 459314 Genetics, Clinical 10/30/24 documented as of this encounter
--- OUTSIDE RECORDS SUMMARY | 2024-11-08 11:17 | XMS_ITS | Encounter Summary ---
Author Organization [place] Address [address] [place] [address] Care Team Providers Care Access Representative Name Role Phone Yung Madrigal MD Unavailable Unavailable Winston Villatoro OD Unavailable [phone] Denise Woodson APRN WATER METER MECHANIC Unavailable [phone] Denise Woodson APRN WATER METER MECHANIC Primary Care Provider Usha Simon APRN WATER METER MECHANIC Unavailable [phone] Dangelo Salinas MD Unavailable Usha Simon APRN WATER METER MECHANIC Unavailable Anastasia Stearns RN Unavailable Germaine Aleman CHW Unavailable Robin Zepeda MD Unavailable Lisa Zambrano MD Unavailable Raul Hoyos MD Unavailable Joya Lira [facility] Unavailable [phone] Joya Lira Joleen Unavailable Fabi Coates MD Unavailable [phone] Robin Zepeda MD Unavailable [phone] Danna Cardenas PA-C Unavailable [phone] Felicita Desai RN Unavailable Unavailab Arthur Rios Unavailable [phone] Randy Maradiaga DO Unavailable + Tete Wang MD Unavailable [phone] Reason for Visit * Reason Comments Medication Refill Encounter Details Date Type Department Care Team (Late st Contact Info) Description 02/19/2022 Refill [facility] [address] [place] [phone] Denise Woodson, PRO SHOP ATTENDANT [facility] [address] [place] [address] Medication Refill Social History Tobacco [...] file Legal Sex Female 4:05 AM MANAGER STUDY Gender Identity Not on file Sexual Orientation [...] Contact Info) Description 11/17/2024 2:30 PM MANAGER STUDY Virtual Visit [facility] [address] [place] [phone] Denise Woodson APRN [facility] [address] [place], [place] 2002668 12/01/2024 4:00 PM CDT Virtual Visit [facility] Vascular [facility] [address] [place] [phone] Lisa Zambrano MD [address] [place] [id number] 12/03/2024 7:00 AM CDT Virtual Visit [facility] Neurology [address] [phone] Randy Maradiaga, [address] [address] 12/09/2024 12:45 PM CDT Office Visit [facility] [address] [place] [address] [phone] Tete Wang MD [address] [place] [address] 145464 12/09/2024 1:15 PM CDT Office Visit [facility] [address] [place] [address] [phone] Tete Wang MD [address] [place] [address] 648124 12/15/2024 3:00 PM CDT Virtual Visit [facility] [address] [place] [phone] Denise Woodson APRN WATER METER MECHANIC [address] [place] [address] 01/19/2025 PRE VISIT [facility] [address] [phone] Any Joiner MD [address] [place] [address] 376115 *-*INCOMING RECORDS*-* 01/19/2025 3:00 PM CDT Orders Only [facility] Pulmonary Function Testing [address] [phone] 01/19/2025 4:00 PM CDT Office Visit [facility] [address] [phone] Any Joiner MD [address] [place] [address] 652415 06/01/2025 11:15 AM CDT Appointment [facility] Imaging [address] [facility] [address] [place] [phone] Robin Zepeda MD [address] [place] [address] 780265 06/04/2025 11:00 AM CDT Office Visit [facility] Neurosurgery [address] [phone] Robin Zepeda MD [address] [place] [address] 565945 Usha Simon APRN WATER METER MECHANIC [address] [place] [address] 578445 documented as of this encounter Visit Diagnoses Diagnosis Moderate persistent asthma without complication Unspecified asthma documented in this encounter Additional Health Concerns Infection Onset Date Last Indicated Resolved Time Rule Out COVID-19 09/13/2024 09/13/2024 09/13/2024 12:31 PM MANAGER STUDY Assessment Noted Time PHQ-9 Depression Total Score: 0 06/23/20 21 4:11 PM CDT documented as of this encounter Care Teams Access Representative Relationship Specialty Start Date End Date Yung Madrigal MD RETIRED PCP - Orthopaedics Orthopedics 08/26/12 01/20/24 Winston Villatoro OD [facility] [place] [address] [place] [address] PCP - Ophthalmology Ophthalmology 02/11/13 Denise Woodson APRN WATER METER MECHANIC [address] [place] [address] PCP - General Family Practice 09/21/20 Denise Woodson APRN WATER METER MECHANIC [address] [place] [address] Assigned PCP 07/17/20 Usha Simon APRN WATER METER MECHANIC [address] [place] [address] 284485 Nurse Practitioner Neurological Surgery 01/24/24 Dangelo Salinas MD [address] [phone] Neurology 01/27/24 Usha Simon APRN WATER METER MECHANIC [address] [place] [address] 483445 Assigned Neuroscience Provider 02/06/24 03/07/24 Anastasia Stearns, RN Lead Purification Operator 02/06/24 Germaine Aleman, W Community Health Worker Primary Care - CC 02/18/24 Robin Zepeda MD [address] [place] [address] Assigned Neuroscience Provider 03/08/24 05/07/24 Lisa Zambrano MD [address] [facility] [address] [place] [address] Assigned Heart and Vascular Provider 05/08/24 07/07/24 Raul Hoyos MD [address] [place] [address] Assigned Neuroscience Provider 05/08/24 07/07/24 Joya Lira Joleen [address] [place] [address] Pharmacist Pharmacist 05/25/[address] [address] [place] [address] Assigned MTM Pharmacist 06/08/24 Fabi Coates MD [address] [place] [address] 75 [place] [address] Genetics, Clinical 06/18/24 Robin Zepeda MD [address] [place] [address] [place] [address] Assigned Neuroscience Provider 07/08/24 08/07/24 Danna Cardenas PA-C 6405 [place] [address] Assigned Heart and Vascular Provider 07/08/24 Feilcita Desai, RN Lead Purification Operator 07/14/24 07/28/24 Arthur Salas, [facility] [address] [place] [address] Assigned Behavioral Health Provider 08/08/24 Randy Maradiaga DO 909 [place], [place] 866085 Assigned Neuroscience Provider 08/08/24 Tete Wang MD 2450 [place], [place] 637354 Genetics, Clinical 10/30/24 documented as of this encounter
--- OUTSIDE RECORDS SUMMARY | 2024-11-08 11:17 | XMS_ITS | Encounter Summary ---
Author Organization [facility] Address [address] [place] [address] Care Team Providers Care Campus Monitor Name Role Phone Winston Villatoro OD Unavailable [phone] Denise Woodson APRN WAREHOUSE OPERATIONS MANAGER Unavailable [phone] Denise Woodson APRN WAREHOUSE OPERATIONS MANAGER Primary Care Provider Usha Simon APRN WAREHOUSE OPERATIONS MANAGER Unavailable + [phone] Dangelo Salinas MD Unavailable Anastasia Stearns RN Unavailable [phone] Germaine Aleman [facility] Unavailable [phone] Joya Lira [facility] Unavailable [phone] Joya Lira [facility] Unavailable [phone] Fabi Coates MD Unavailable [phone] Danna Cardenas PA-C Unavailable [phone] Arthur Salas ELECTRICAL ENGINEER MEP Unavailable [phone] Randy Maradiaga DO Unavailable + Tete Wang MD Unavailable [phone] Encounter Details Date Type Department Care Team (Late st Contact Info) Description 11/05/2024 Telephone [facility] - Neuroscience Service Line [facility] [place] [phone] Bo Espinal MD [address] [place] [address] 300805 Social History Tobacco Use Types Packs/Day Years [...] Never 09/16/2024 How often do you attend taoist or zoroastrianism serv ices? 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 R sided defiicts and balance problems after strokes but since returned to nromal. 10 days ago noticed balance difficulty with turning. ED provider states does have subtle dysmetria on the left. No current headache but has had a headache over the last few days. Reportedly did have neck pain around the time this started. With her history of fibromuscular dysplasia and EDS would consider looking at vessels. Wonder if this could be recrudescence in the setting of her old stroke, but symptoms do sound a little bit different and so do think needs MRI in addition to MRA. Also recommended basic labs including CBC, CMP, UA, and consider swabbing for respiratory viruses. I am not able to review MRI outside our system butif returns unremarkable ED states is stable for discharge from a gait and balance standpoint. Wouldhave her follow-up with vestibular therapy and her outpatient neurologist who I will forward this note too Bo Espinal, K WATCHMAN documented in this encounter Plan of Treatment Upcoming Encounters Date Type Department Care Team (Late st Contact Info) Description 11/17/2024 2:30 PM TRACK WATCHMAN Virtual Visit [facility] [address] [place] [address] Denise Woodson APRN [facility] [address] [place], [place] 2484868 12/01/2024 4:00 PM CDT Virtual Visit [facility] Clinic [place] [address] [place] [phone] Lisa Zambrano MD [address] [place] [address] 12/03/2024 7:00 AM CDT Virtual Visit [facility] Neurology Clinic [address] [place] [phone] Randy Maradiaga DO [address] [place] [address] 440185 12/09/2024 12:45 PM CDT Office Visit [facility] [address] [place] [address] [phone] Tete Wang MD [address] [place] [address] 490094 12/09/2024 1:15 PM CDT Office Visit [facility] [address] [place] [address] [phone] Tete Wang MD [address] [place] [address] [id number] 12/15/2024 3:00 PM CDT Virtual Visit [facility] [address] [place] [address] Denise Woodson APRN [facility] [address] [place], [place] 7010268 01/19/2025 PRE VISIT [facility] [address] [phone] Any Joiner MD [address] [place] [address] *-*INCOMING RECORDS*-* 01/19/2025 3:00 PM CDT Orders Only [facility] Pulmonary Function Testing [address] 3rd [place] [address] 01/19/2025 4:00 PM CDT Office Visit [facility] [address] [place] [address] [phone] Any Joiner MD [address] [place] [address] 06/01/2025 11:15 AM CDT Appointment [facility] Imaging [address] [place] [address] Robin Zepeda MD [address] [place] [address] 06/04/2025 11:00 AM CDT Office Visit [facility] Neurosurgery Clinic [address] 3rd [place] [phone] Robin Zepeda MD [address] [place] [address] Usha Simon APRN WAREHOUSE OPERATIONS MANAGER [address] [place] [address] documented as of this encounter Visit Diagnoses Not on filedocumented in this encounter Additional Health Concerns Assessment Noted Time PHQ-9 Depression Total Score: 0 09/18/19 25 12:46 PM TRACK WATCHMAN documented as of this encounter Care Teams Campus Monitor Relationship Specialty Start Date End Date Winston Villatoro, OD [facility] [address] [facility] [address] [place] [address] PCP - Ophthalmology Ophthalmology 02/11/13 Denise Woodson APRN WAREHOUSE OPERATIONS MANAGER [address] [place] [address] PCP - General Family Practice 09/21/20 Denise Woodson APRN WAREHOUSE OPERATIONS MANAGER [address] [place] [address] Assigned PCP 07/17/20 Usha Simon APRN WAREHOUSE OPERATIONS MANAGER 909 [facility] EM1217RI [place] [address] Nurse Practitioner Neurological Surgery 01/24/24 Dangelo Salinas MD [address] [place] [address] Neurology 01/27/24 Anastasia Stearns, RN Lead Boiler Water Tester 02/06/24 Germaine Aleman, W Community Health Worker Primary Care - CC 02/18/24 Joya Lira [facility] [address] [place] [address] Pharmacist Pharmacist 05/25/24 Joya Lira [facility] [address] [place], [place] [phone] Assigned MTM Pharmacist 06/08/24 Fabi Coates MD 420 [facility] 75 [place] [address] Genetics, Clinical 06/18/24 Danna Cardenas PA-C 6405 [place] [address] Assigned Heart and Vascular Provider 07/08/24 Arthur Salas [facility] [address] [place] [address] Assigned Behavioral Health Provider 08/08/24 Randy Maradiaga DO 909 [place] [address] Assigned Neuroscience Provider 08/08/24 Tete Wang MD 2450 [place], [place] 003204 Genetics, Clinical 10/30/24 documented as of this encounter
--- OUTSIDE RECORDS SUMMARY | 2024-11-08 11:17 | XMS_ITS | Encounter Summary ---
Author Organization [facility] Address [address] [place] [address] Care Team Providers Care Hourly Manager Name Role Phone Winston Villatoro OD Unavailable [phone] Denise Woodson APRN ENERGY CONTROL OFFICER Unavailable [phone] Denise Woodson APRN ENERGY CONTROL OFFICER Primary Care Provider Usha Simon APRN ENERGY CONTROL OFFICER Unavailable + [phone] Dangelo Salinas MD Unavailable Anastasia Stearns RN Unavailable [phone] Germaine Aleman [facility] Unavailable [phone] Joya Lira [facility] Unavailable [phone] Joya Lira [facility] Unavailable [phone] Fabi Coates MD Unavailable [phone] Robin Zepeda MD Unavailable [phone] Danna Cardenas PA-C Unavailable [phone] Felicita Desai RN Unavailable Unavailab Arthur RiosSW Unavailable [phone] Randy Maradiaga DO Unavailable + Tete Wang MD Unavailable [phone] Encounter Details Date Type Department Care Team (Late st Contact Info) Description 07/18/2024 MyC Medical Advice [facility] [address] [place] [address] Denise Woodson CATEGORY SPECIALIST ENERGY CONTROL OFFICER [address] [place] [address] Social History Tobacco Use Types [...] How often do you attend sabianism or yazidi serv ices? Never 02/28/2024 Do [...] Answer Date Recorded PHQ-2 Score 4 07/16/2024 [facility] [place] [facility] Occupat ional Health - Occupational Stress [...] on file Legal Sex Female 4:05 AM DECAY CONTROL OPERATOR Gender Identity Not on file [...] to provider as FYI. Qing Copeland Lead Chef De Cuisine [facility] documented in this encounter Plan of Treatment Upcoming Encounters Date Type Department Care Team (Late st Contact Info) Description 11/17/2024 2:30 PM DECAY CONTROL OPERATOR Virtual Visit [facility] [address] [place] [phone] Denise Woodson APRN ENERGY CONTROL OFFICER [address] [place], [place] [phone] 12/01/2024 4:00 PM CDT Virtual Visit [facility] V[facility] Clinic [place] [address] [place] [phone] Lisa Zambrano MD [address] [place] [address] 12/03/2024 7:00 AM CDT Virtual Visit [facility] Neurology [address] [phone] Randy Maradiaga DO [address] [place] [address] 228225 12/09/2024 12:45 PM CDT Office Visit [facility] [address] [place] [address] [phone] Tete Wang MD [address] [place] [address] 547134 12/09/2024 1:15 PM CDT Office Visit [facility] [address] [place], [place] [address]e [facility] [address] [phone] Tete Wang MD 2450 [place] [address] 12/15/2024 3:00 PM CDT Virtual Visit [facility] [address] [place] [phone] Chintan DeniseBARRERA ENERGY CONTROL OFFICER [address] [place] [address] 01/19/2025 PRE VISIT [facility] [address] [phone] Any Joiner MD [address] [place] [address] 247415 *-*INCOMING RECORDS*-* 01/19/2025 3:00 PM CDT Orders Only [facility] Pulmonary Function Testing [address] [place] [phone] 01/19/2025 4:00 PM CDT Office Visit [facility] [address] [phone] Any Joiner MD [address] [place] [address] 06/01/2025 11:15 AM CDT Appointment [facility] Imaging [address] [place] [address] Robin Zeepda MD [address] [place], [place] [address]CJ [place] [address] 06/04/2025 11:00 AM CDT Office Visit [address]rd [place] [phone] Robin Zepeda MD [address] [address] Usha Simon APRN ENERGY CONTROL OFFICER [address] [address] documented as of this encounter Visit Diagnoses Not on filedocumented in this encounter Additional Health Concerns Infection Onset Date Last Indicated Resolved Time Rule Out COVID-19 09/13/2024 09/13/2024 09/13/2024 12:31 PM DECAY CONTROL OPERATOR Assessment Noted Time PHQ-9 Depression Total Score: 14 024 11:46 AM CDT documented as of this encounter Care Teams Hourly Manager Relationship Specialty Start Date End Date Winston Villatoro OD [facility] 701 [facility] [address] [place] [address] PCP - Ophthalmology Ophthalmology 02/11/13 Denise Woodson APRN ENERGY CONTROL OFFICER [address] [place] [address] PCP - General Family Practice 09/21/20 Denise Woodson APRN ENERGY CONTROL OFFICER [address] [place] [address] Assigned PCP 07/17/20 Usha Simon APRN ENERGY CONTROL OFFICER [address] [place] [address] Nurse Practitioner Neurological Surgery 01/24/24 Dangelo Salinas MD [address] [place] [address] Neurology 01/27/24 Anastasia Stearns, RN Lead Elementary School Director 02/06/24 Germaine Aleman, [facility] Community Health Worker Primary Care - CC 02/18/24 Joya Lira [facility] [address] [place] [address] Pharmacist Pharmacist 05/25/24 Joya Lira [facility] [address] [place] [address] Assigned MTM Pharmacist 06/08/24 Fabi Coates MD [address] [place] [address] 75 [place] [address] Genetics, Clinical 06/18/24 Robin Zepeda MD [address] [place] [address], [place] [address] Assigned Neuroscience Provider 07/08/24 08/07/24 Danna Cardenas PA-C 6405 [place] [address] Assigned Heart and Vascular Provider 07/08/24 Felicita Desai RN Lead Elementary School Director 07/14/24 07/28/24 Arthur Salas, [facility] [address] [address] Assigned Behavioral Health Provider 08/08/24 Randy Maradiaga DO [address] [place] [address] 367955 Assigned Neuroscience Provider 08/08/24 Tete Wang MD [address] [place] [address] Genetics, Clinical 10/30/24 documented as of this encounter
--- OUTSIDE RECORDS SUMMARY | 2024-11-08 11:17 | XMS_ITS | Encounter Summary ---
Author Organization [facility] Address [address] [place] [address] Care Team Providers Care Pallet Sorter Name Role Phone Winston Villatoro OD Unavailable [phone] Denise Woodson APRN ANALYTIC PROGRAMMER Unavailable [phone] Denise Woodson APRN ANALYTIC PROGRAMMER Primary Care Provider Usha Simon APRN ANALYTIC PROGRAMMER Unavailable Dangelo Salinas MD Unavailable Anastasia Stearns RN Unavailable Germaine Aleman [facility] Unavailable Joya Lira [facility] Unavailable [phone] Joya Lira [facility] Unavailable Fabi Coates MD Unavailable [phone] Robin Zepeda MD Unavailable +[phone] Danna Cardenas PA-C Unavailable [phone] Arthur Salas Unavailable [phone] Randy Maradiaga DO Unavailable + Tete Wang MD Unavailable [phone] Reason for Visit * Reason Onset Date Comments Forms 07/29/2024 [facility]/[employer] - Return to work/ Workability Form Encounter Details Date Type Department Care Team (Late st Contact Info) Description 07/29/2024 MyC Medical Advice [facility] [address] [place] [address] Denise Woodson APRN ANALYTIC PROGRAMMER [address] [place] [address] Forms (Patient/[employer] - [...] How often do you attend rastafarian or mormonism serv ices? 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 Patient/[facility] Where did/will the form come from? form was sent via [employer] When is form/letter needed by: 08/04/24 How would you like the form/letter returned: Fax to [facility] Employee [facility] (JOSE LUIS on file - 05/21/24),then send form to Pt via [employer] Patient Notified form requests are processed in 5-7 business days:Yes Could we send this information to you in [employer] or would you prefer to receive a phone call?: Patient would prefer a phone call Okay to leave a detailed message?: N/A at Cell number on file: Telephone Information: L LEAF LAYER documented in this encounter Plan of Treatment Upcoming Encounters Date Type Department Care Team (Late st Contact Info) Description 11/17/2024 2:30 PM METAL LEAF LAYER Virtual Visit [facility] [address] [place] [address] Denise Woodson APRN [facility] [address] [place], [place] 57[address] 12/01/2024 4:00 PM CDT Virtual Visit [facility] V[facility] [place] [address] [place] [phone] Lisa Zambrano MD [address] [place] [address] 12/03/2024 7:00 AM CDT Virtual Visit [facility] Neurology Clinic [address] 3rd [place] [address] Randy Maradiaga, DO [address] [place] [address] 12/09/2024 12:45 PM CDT Office Visit [facility] Pediatric Specialty Clinic [address] [place] [phone] Tete Wang MD [address] [place] [address] 020954 12/09/2024 1:15 PM CDT Office Visit [facility] Pediatric Specialty Clinic [address] [place] [address] [phone] Tete Wang MD [address] [place] [address] 388974 12/15/2024 3:00 PM CDT Virtual Visit [facility] [address] [place] [address] Denise Woodson APRN [facility] [address] [place] [address] 01/19/2025 PRE VISIT [facility] [address] [address] Any Joiner MD [address] [place] [address] 208375 *-*INCOMING RECORDS*-* 01/19/2025 3:00 PM CDT Orders Only [facility] Pulmonary Function Testing [address] 3rd [place] [address] 01/19/2025 4:00 PM CDT Office Visit [facility] Lung Science and Health [address] [address] Any Joiner MD [address] [facility] [address] [place], [place] 6[address] 06/01/2025 11:15 AM CDT Appointment [facility] [address] [place] [phone] Robin Zepeda MD [address] [place] [address] 095955 06/04/2025 11:00 AM CDT Office Visit [facility] Neurosurgery Clinic [address] 3rd [place] [phone] Robin Zepeda MD [address] [place] [address] 034965 Usha Simon APRN ANALYTIC PROGRAMMER [address] [place] [address] documented as of this encounter Visit Diagnoses Not on filedocumented in this encounter Additional Health Concerns Infection Onset Date Last Indicated Resolved Time Rule Out COVID-19 09/13/2024 09/13/2024 09/13/2024 12:31 PM METAL LEAF LAYER Assessment Noted Time PHQ-9 Depression Total Score: 14 024 11:46 AM CDT documented as of this encounter Care Teams Pallet Sorter Relationship Specialty Start Date End Date Winston Villatoro OD [facility] [place] [address] [place] [address] PCP - Ophthalmology Ophthalmology 02/11/13 Denise Woodson APRN ANALYTIC PROGRAMMER [address] [place] [address] PCP - General Family Practice 09/21/20 Denise Woodson APRN ANALYTIC PROGRAMMER [address] [facility] [place] [address] Assigned PCP 07/17/20 Usha Simon APRN ANALYTIC PROGRAMMER [address] [address] Nurse Practitioner Neurological Surgery 01/24/24 Dangelo Salinas MD [address] [place], [place] [phone] Neurology 01/27/24 Anastasia Stearns, RN [employer] Lawyer 02/06/24 Germaine Aleman, W Community Health Worker Primary Care - CC 02/18/24 Joya Lira [facility] [address] [place], [place] [phone] Pharmacist Pharmacist 05/25/24 Joya Lira [facility] [address] [place], [place] [address] Assigned MTM Pharmacist 06/08/24 Fabi Coates MD [address] [place] [address] 75 [place] [address] Genetics, Clinical 06/18/24 Robin Zepeda MD [address] [address] Assigned Neuroscience Provider 07/08/24 08/07/24 Danna Cardenas PA-C 6405 [place] [address] Assigned Heart and Vascular Provider 07/08/24 Arthur Salas SERVER [address] [place] [address] Assigned Behavioral Health Provider 08/08/24 Randy Maradiaga DO 909 [place] [address] Assigned Neuroscience Provider 08/08/24 Tete Wang MD 2450 [place] [address] Genetics, Clinical 10/30/24 documented as of this encounter
--- OUTSIDE RECORDS SUMMARY | 2024-11-08 11:17 | XMS_ITS | Encounter Summary ---
Author Organization [place] Address [address] [place] [address] Care Team Providers Care Transcription Name Role Phone Winston Villatoro OD Unavailable [phone] Denise Woodson APRN AEROSPACE MANAGER Unavailable [phone] Denise Woodson APRN AEROSPACE MANAGER Primary Care Provider Usha Simon APRN AEROSPACE MANAGER Unavailable + [phone] Dangelo Salinas MD Unavailable Anastasia Stearns RN Unavailable [phone] Germaine Aleman [facility] Unavailable [phone] [facility] Unavailable [phone] [facility] Unavailable [phone] Fabi Coates MD Unavailable [phone] Danna Cardenas PA-C Unavailable [phone] Arthur Salas FINANCIAL ANALYST INTERN Unavailable [phone] Randy Maradiaga DO Unavailable + Tete Wang MD Unavailable +[phone] Encounter Details Date Type Department Care Team (Late st Contact Info) Description 11/06/2024 [facility] [address] [place] [phone] Denise Woodson APRN AEROSPACE MANAGER [address] [place] [place], [place] [phone] Social History Tobacco Use Types Packs/Day Years [...] Never 09/16/2024 How often do you attend caodaism or moravian serv ices? Never 09/16/2024 Do [...] Answer Date Recorded PHQ-2 Score 0 09/29/2024 [facility] of Occupat ional Health [...] in an overnight custodial, or couch-surfing.) Yes 09/16/2024 Are you worried [...] on file Legal Sex Female 4:05 AM AGILE SCRUM MASTER Gender Identity Not on file Sexual [...] st Contact Info) Description 11/17/2024 2:30 PM AGILE SCRUM MASTER Virtual Visit [address] [address] Denise Woodson APRN AEROSPACE MANAGER [address] [place] [address] 12/01/2024 4:00 PM CDT Virtual Visit [facility] Vascular [facility] [address] [place] [address] Lisa Zambrano MD [address] [place] [address] 12/03/2024 7:00 AM CDT Virtual Visit [facility] Neurology [address] [phone] Randy Maradiaga [address] 764715 12/09/2024 12:45 PM CDT Office Visit [facility] Pediatric Specialty Clinic [address] [place] [address] [phone] Tete Wang MD [address] [place] [address] 12/09/2024 1:15 PM CDT Office Visit [facility] Pediatric Specialty Clinic [address] [place] [address] [phone] Tete Wang MD [address] [place] [address] 287694 12/15/2024 3:00 PM CDT Virtual Visit [facility] [address] [facility] [place] [address] Denise Woodson APRN AEROSPACE MANAGER [address] [facility] [place] [address] 01/19/2025 PRE VISIT [facility] Lung Science [address] [phone] Any Joiner MD [address] [place] [address] 518975 *-*INCOMING RECORDS*-* 01/19/2025 3:00 PM CDT Orders Only [facility] Pulmonary Function Testing [address] [place] [phone] 01/19/2025 4:00 PM CDT Office Visit [facility] Lung Science [address] [phone] Any Joiner MD [address] [place] [address] 483345 06/01/2025 11:[address] [facility] Imaging [address] [place] [phone] Robin Zepeda MD [address] [place] [address] 06/04/2025 11:00 AM CDT Office Visit [facility] Neurosurgery [address] [phone] Robin Zepeda MD [address] [place] [address]405 Usha Simon APRN AEROSPACE MANAGER [address] [place] [address] documented as of this encounter Visit Diagnoses Not on filedocumented in this encounter Additional Health Concerns Assessment Noted Time PHQ-9 Depression Total Score: 0 09/18/19 25 12:46 PM AGILE SCRUM MASTER documented as of this encounter Care Teams Transcription Relationship Specialty Start Date End Date Winston Villatoro OD [facility] [address] [place] [address] PCP - Ophthalmology Ophthalmology 02/11/13 Denise Woodson APRN AEROSPACE MANAGER [address] [address] [facility] [address] PCP - General Family Practice 09/21/20 Denise Woodson APRN AEROSPACE MANAGER [address] [address] [place] [address] Assigned PCP 07/17/20 Usha Simon APRN AEROSPACE MANAGER 9 [facility], [place] [address] Nurse Practitioner Neurological Surgery 01/24/24 Dangelo Salinas MD [address] [place] [address] Neurology 01/27/24 Anastasia Stearns, RN Lead Human Resource Advisor 02/06/24 Germaine Aleman, CHW Community Health Worker Primary Care - CC 02/18/24 Joya Lira R[facility] [address] [place] [address] Pharmacist Pharmacist 05/25/24 Joya Lira R[facility] [address] [place] [address] Assigned MTM Pharmacist 06/08/24 Fabi Coates MD [address] [place] [address] 75 [place] [address] Genetics, Clinical 06/18/24 Danna Cardenas PA-C [address] [place] [address] Assigned Heart and Vascular Provider 07/08/24 Arthur Salas [facility] [address] [address] Assigned Behavioral Health Provider 08/08/24 Randy Maradiaga DO [address] [place] [address] Assigned Neuroscience Provider 08/08/24 Tete Wang MD [address] [place] [address] 861064 Genetics, Clinical 10/30/24 documented as of this encounter
--- OUTSIDE RECORDS SUMMARY | 2024-11-08 11:17 | XMS_ITS | Encounter Summary ---
Author Organization [place] Address [address] [place] [address] Care Team Providers Care Fur Finisher Seamstress Name Role Phone Timmy Perez MD Unavailable Unavailable Yung Madrigal MD Unavailable Unavailable Frw, None Primary Care Provider Unavailabl e Winston Villatoro OD Unavailable [phone] Apple Sykes MD Primary Care Provider Unavailab Westley Vera MD Unavailable [phone] Georgina-Alessandra Gómez APRN LOW RAW SUGAR CUTTER Primary Car e Provider Serum, Clara Garland MD Primary Care Provider Serum, Clara Garland MD Unavailable [phone] Serum, Clara Garland MD Unavailable [phone] Denise Woodson APRN LOW RAW SUGAR CUTTER Unavailable [phone] Denise Woodson APRN LOW RAW SUGAR CUTTER Primary Care Provider Usha Simon APRN LOW RAW SUGAR CUTTER Unavailable + [phone] Dangelo Salinas MD Unavailable Usha Simon APRN LOW RAW SUGAR CUTTER Unavailable + [phone] Anastasia Stearns RN Unavailable [phone] Germaine Aleman CHW Unavailable [phone] Robin Zepeda MD Unavailable [phone] Lisa Zambrano MD Unavailable [phone] Raul Hoyos MD Unavailable SorayaJoya [facility] Unavailable [phone] Soraya Joya [facility] Unavailable [phone] Fabi Coates MD Unavailable [phone] Robin Zepeda MD Unavailable [phone] Danna Cardenas PA-C Unavailable [phone] Felicita Desai RN Unavailable Unavailab Arthur Rios CORPORATE AIRCRAFT MECHANIC Unavailable [phone] Randy Maradiaga DO Unavailable + Tete Wang MD Unavailable [phone] Encounter Details Date Type Department Care Team (Late st Contact Info) Description 01/31/2006 [facility] [place] RECORD PRESS TENDER [address] [place] [address] Timmy Perez MD Social History Tobacco Use Types Packs/Day Years Used Date Smoking Tobacco: Never Passive Smoke Exposure: Never Smokeless Tobacco: Never Alcohol Use Standard Drinks/Week Comments Not Currently 0 (1 standard drink = 0.6 oz pur e alcohol) minimal Comments No Sex and Gender Information Value Date Recorded Sex Assigned at Not on file Legal Sex Female 4:05 AM EFFICIENCY CLERK Gender Identity Not on file Sexual Orientation Not on file 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 [place] [phone] Lisa Zambrano MD [address] [place] [address] 12/03/2024 7:00 AM CDT Virtual Visit [facility] Neurology Clinic [address] 3rd [place] [phone] Randy Maradiaga, [address] [address] 12/09/2024 12:45 PM CDT Office Visit [facility] Pediatric Specialty Clinic [address] [place] [phone] Tete Wang MD [address] [place] [address] 787984 12/09/2024 1:15 PM CDT Office Visit [facility] Pediatric Specialty Clinic [address] [place] [phone] Tete Wang MD [address] [place] [address] 485824 12/15/2024 3:00 PM CDT Virtual Visit [facility] [address] [place] [phone] Denise Woodson APRN [facility] [address] [place], [place] 7250168 01/19/2025 PRE VISIT [facility] for Lung Science and Health [address] [phone] Any Joiner MD [address] [address] *-*INCOMING RECORDS*-* 01/19/2025 3:00 PM CDT Orders Only [facility] Pulmonary Function Testing [address] [place] [phone] 01/19/2025 4:00 PM CDT Office Visit [facility] for Lung Science [facility] Health Clinic [address] [phone] Any Joiner MD [address] [place] [address] 06/01/2025 11:15 AM CDT Appointment [facility] Imaging [address] [facility] [address] [place] [phone] Robin Zepeda MD [address] [place] [address] 827575 06/04/2025 11:00 AM CDT Office Visit [facility] Neurosurgery Clinic [address] [phone] Robin Zepeda MD [address] [place] [address] Usha Simon APRN [address] [phone] documented as of this encounter Visit Diagnoses Not on filedocumented in this encounter Additional Health Concerns Infection Onset Date Last Indicated Resolved Time Rule Out COVID-19 09/13/2024 09/13/2024 09/13/2024 12:31 PM EFFICIENCY CLERK documented as of this encounter Care Teams Fur Finisher Seamstress Relationship Specialty Start Date End Date Timmy Perez MD PCP - Obstetrics/Gynecology 03/02/08 08/07/15 Yung Madrigal MD RETIRED PCP - Orthopaedics Orthopedics 08/26/12 01/20/24 Frw, None PCP - General Family Practice 08/26/12 05/03/13 Winston Villatoro OD [facility] [place] [address] [place] [address] PCP - Ophthalmology Ophthalmology 02/11/13 Apple Sykes MD [facility] [place] [address] [place] [address] PCP - General Family Practice 05/04/13 10/25/16 [place] Bates MD XXX RETIRED XXX [address] [place] [address] PCP - ENT Otolaryngology 05/14/13 07/28/18 Alessandra Cabrales APRN LOW RAW SUGAR CUTTER [address] [facility] [place] [address] PCP - General Nurse Practitioner 10/26/16 02/06/17 Clara Cornell MD [address] [facility] [address] [place] [address] PCP - General Internal Medicine 02/07/17 09/20/20 Clara Cornell MD [address] [facility] [place] [address] PCP - Assigned PCP 01/17/17 11/18/18 Denise Woodson APRN LOW RAW SUGAR CUTTER [address] [place] [address] PCP - General Family Practice 09/21/20 Clara Cornell MD [address] [place] [address] Assigned PCP 01/17/17 07/16/20 Denise Woodson APRN LOW RAW SUGAR CUTTER [address] [place] [address] Assigned PCP 07/17/20 Usha Simon APRN LOW RAW SUGAR CUTTER [address] [place] [address] Nurse Practitioner Neurological Surgery 01/24/24 Dangelo Salinas MD [address] [facility] [address] [address] Neurology 01/27/24 Usha Simon APRN LOW RAW SUGAR CUTTER [address] [address] Assigned Neuroscience Provider 02/06/24 03/07/24 Anastasia Stearns, RN Lead Supervisor Enrobing 02/06/24 Germaine Aleman, CHW Community Health Worker Primary Care - CC 02/18/24 Robin Zepeda MD [address] [address] Assigned Neuroscience Provider 03/08/24 05/07/24 Lisa Zambrano MD [address] [place] [address] Assigned Heart and Vascular Provider 05/08/24 07/07/24 Raul Hoyos MD 909 [facility]2121[place], [place] [address] Assigned Neuroscience Provider 05/08/24 07/07/24 Joya Lira [facility] [address] [place] [address] Pharmacist Pharmacist 05/25/24 Joya Lira [facility] [address] [place] [address] Assigned MTM Pharmacist 06/08/24 Fabi Coates MD [address] [place] [address] 75 [place] [address] Genetics, Clinical 06/18/24 Robin Zepeda MD [address] [address] Assigned Neuroscience Provider 07/08/24 08/07/24 Danna Cardenas PA-C 6405 [place] [address] Assigned Heart and Vascular Provider 07/08/24 Felicita Desai, RN Lead Supervisor Enrobing 07/14/24 07/28/24 Arthur Salas, CORPORATE AIRCRAFT MECHANIC [address] [place] [address] Assigned Behavioral Health Provider 08/08/24 Randy Maradiaga DO 909 [place] [address] Assigned Neuroscience Provider 08/08/24 Tete Wang MD 2450 [place] [address] Genetics, Clinical 10/30/24 documented as of this encounter
--- OUTSIDE RECORDS SUMMARY | 2024-11-08 11:17 | XMS_ITS | Encounter Summary ---
Author Organization [facility] Address [address] [place] [address] Care Team Providers Care Patient Care Assistant Name Role Phone Timmy Perez MD Unavailable Unavailable Yung Madrigal MD Unavailable Unavailable Frw, None Primary Care Provider Unavailabl e Winston Villatoro OD Unavailable [phone] Apple Sykes MD Primary Care Provider Unavailab Westley Vera MD Unavailable [phone] Georgina-Alessandra Gómez APRN MEAT LUGGER Primary Car e Provider Serum, Clara Garland MD Primary Care Provider Serum, Clara Garland MD Unavailable +[phone] Serum, Clara Garland MD Unavailable +[phone] Denise Woodson APRN MEAT LUGGER Unavailable +[phone] Denise Woodson APRN MEAT LUGGER Primary Care Provider Usha Simon APRN MEAT LUGGER Unavailable + [phone] Dangelo Salinas MD Unavailable Usha Simon APRN MEAT LUGGER Unavailable + [phone] Anastasia Stearns RN Unavailable +[phone] Germaine Aleman CHW Unavailable +[phone] Robin Zepeda MD Unavailable +[phone] Lisa Zambrano MD Unavailable [phone] Raul Hoyos MD Unavailable SorayaJoya [facility] Unavailable +[phone] SorayaThiJoya [facility] Unavailable +[phone] Fabi Coates MD Unavailable [phone] Robin Zepeda MD Unavailable [phone] Danna Cardenas PA-C Unavailable +[phone] Felicita Desai RN Unavailable Unavailab Arthur Rios [facility] Unavailable +[phone] Randy Maradiaga DO Unavailable + Tete Wang MD Unavailable +[phone] Reason for Visit * Reason Onset Date Comments Medication Question 04/21/2013 Farhan Saez [facility] Encounter Details Date Type Department Care Team (Late st Contact Info) Description 04/21/[address] [facility] [address] [place] [phone] Janna Rodriguez, poultry scalder Question (Farhan [facility]) Social History Tobacco Use Types Packs/Day Years Used Date Smoking Tobacco: Never Smokeless Tobacco: Never Alcohol Use Standard Drinks/Week Comments Yes 0 (1 standard drink = 0.6 oz pur e alcohol) minimal Comments No Sex and Gender Information Value Date Recorded Sex Assigned at Not on file Legal Sex Female 4:05 AM FLAT SPRING ASSEMBLER Gender Identity Not on file Sexual [...] st Contact Info) Description 11/17/2024 2:30 PM FLAT SPRING ASSEMBLER Virtual Visit [facility] [address] [place] [address] Denise Woodson APRN [facility] [address] [place] [address] 12/01/2024 4:00 PM CDT Virtual Visit [facility] [place] [address] [place] [phone] Lisa Zambrano MD [address] [place] [address] 12/03/2024 7:00 AM CDT Virtual Visit [facility] [address] 3rd [place] [address] Randy Maradiaga, [address] [place] [address] 12/09/2024 12:45 PM CDT Office Visit [facility] [address],[place] [phone] Tete Wang MD [address] [place] [address] 12/09/2024 1:15 PM CDT Office Visit [facility] [address] [place] [address] 12th Fl[address],[place] [phone] Tete Wang MD [address] [place] [address] 12/15/2024 3:00 PM CDT Virtual Visit [facility] [address] [place] [phone] Denise Woodson APRN [facility] [address] [place], [place] [phone] 01/19/2025 PRE VISIT [facility] [address] [phone] Any Joiner MD [address] [place] [address] *-*INCOMING RECORDS*-* 01/19/2025 3:00 PM CDT Orders Only [facility] Pulmonary Function Testing [address] 3rd [place] [phone] 01/19/2025 4:00 PM CDT Office Visit [facility] [address] [phone] Any Joiner MD [address] [place] [address] 06/01/2025 11:15 AM CDT Appointment [facility] [address] [facility] [address] [place] [address] Robin Zepeda MD [address] [place] [address] 06/04/2025 11:00 AM CDT Office Visit [facility] Neurosurgery [facility] [address] 3rd [place] [phone] Robin Zepeda MD [address] [place] [address] Usha Simon APRN MEAT LUGGER [address] [place] [address] documented as of this encounter Visit Diagnoses Not on filedocumented in this encounter Additional Health Concerns Infection Onset Date Last Indicated Resolved Time Rule Out COVID-19 09/13/2024 09/13/2024 09/13/2024 12:31 PM FLAT SPRING ASSEMBLER documented as of this encounter Care Teams Patient Care Assistant Relationship Specialty Start Date End Date Timmy Perez MD PCP - Obstetrics/Gynecology 03/02/08 08/07/15 Yung Madrigal MD RETIRED PCP - Orthopaedics Orthopedics 08/26/12 01/20/24 Frw, None PCP - General Family Practice 08/26/12 05/03/13 Winston Villatoro OD [facility] [place] [address] [place] [address] PCP - Ophthalmology Ophthalmology 02/11/13 Apple Sykes MD [facility] [place] [address] [place] [address] PCP - General Family Practice 05/04/13 10/25/16 Westley Bates MD XXX RETIRED XXX 701 [facility] [address] [place] [address] PCP - ENT Otolaryngology 05/14/13 07/28/18 Alessandra Cabrales APRN MEAT LUGGER [address] [facility] [place] [address] PCP - General Nurse Practitioner 10/26/16 02/06/17 Clara Cornell MD [address] [facility] [place] [address] PCP - General Internal Medicine 02/07/17 09/20/20 Clara Cornell MD [address] [place], [place] [phone] PCP - Assigned PCP 01/17/17 11/18/18 Denise Woodson APRN MEAT LUGGER [address] [place] [address] PCP - General Family Practice 09/21/20 Clara Cornell MD [address] [place] [address] Assigned PCP 01/17/17 07/16/20 Denise Woodson APRN MEAT LUGGER [address] [place] [address] Assigned PCP 07/17/20 Usha Simon APRN MEAT LUGGER [address] [facility] [place] [address] Nurse Practitioner Neurological Surgery 01/24/24 Dangelo Salinas MD [address] [place] [address] Neurology 01/27/24 Usha Simon APRN MEAT LUGGER [address] [address] Assigned Neuroscience Provider 02/06/24 03/07/24 Anastasia Stearns, RN Lead Leather Shaver 02/06/24 Germaine Aleman, W Community Health Worker Primary Care - CC 02/18/24 Robin Zepeda MD [address] [address] Assigned Neuroscience Provider 03/08/24 05/07/24 Lisa Zambrano MD [address] [place] [address] Assigned Heart and Vascular Provider 05/08/24 07/07/24 Raul Hoyos MD [address] [address] Assigned Neuroscience Provider 05/08/24 07/07/24 Joya Lira RPH [address] [place] [address] Pharmacist Pharmacist 05/25/24 Joya Lira RPH [address] [place] [address] Assigned MTM Pharmacist 06/08/24 Fabi Coates MD [address] [facility] 75 [place] [address] Genetics, Clinical 06/18/24 Robin Zepeda MD 909 [facility] [id number] [place] [address] Assigned Neuroscience Provider 07/08/24 08/07/24 Danna Cardenas PA-C [address] [place] [address] Assigned Heart and Vascular Provider 07/08/24 Felicita Desai RN Lead Leather Shaver 07/14/24 07/28/[address] [facility] [address] [place] [address] Assigned Behavioral Health Provider 08/08/24 Randy Maradiaga DO [address] [place] [address] Assigned Neuroscience Provider 08/08/24 Tete Wang MD [address] [place] [address] Genetics, Clinical 10/30/24 documented as of this encounter
--- OUTSIDE RECORDS SUMMARY | 2024-11-08 11:17 | XMS_ITS | Encounter Summary ---
Author Organization [facility] Address [address] [place] [address] Care Team Providers Care Bobbin Dumper Name Role Phone Winston Villatoro OD Unavailable [phone] Denise Woodson APRN MANAGER PRACTICE Unavailable +[phone] Denise Woodson APRN MANAGER PRACTICE Primary Care Provider Usha Simon APRN MANAGER PRACTICE Unavailable Dangelo Salinas MD Unavailable Usha Simon APRN MANAGER PRACTICE Unavailable Anastasia Stearns RN Unavailable [phone] Germaine Aleman CH Unavailable +[phone] Robin Zepeda MD Unavailable [phone] Lisa Zambrano MD Unavailable Raul Hoyos MD Unavailable Joya Lira RP Unavailable [phone] Joya Lira RPJoleen Unavailable +[phone] Fabi Coates MD Unavailable [phone] Robin Zepeda MD Unavailable Danna Cardenas PA-C Unavailable +[phone] Felicita Desai RN Unavailable Unavailab Arthur Rios [facility] Unavailable +[phone] Randy Maradiaga DO Unavailable + Tete Wang MD Unavailable +[phone] Encounter Details Date Type Department Care Team (Late Contact Info) Description 01/29/2024 MyC Medical Advice [address] [phone] Danya Restrepo, SHINGLE INSPECTOR Social History Tobacco Use Types Packs/Day Years [...] on file Legal Sex Female 4:05 AM INSTRUMENT REPAIR SPECIALIST Gender Identity Not on file Sexual Orientation Not on file 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 [place] [address] [place] [phone] Lisa Zambrano MD [address] [place] [id number] 12/03/2024 7:00 AM CDT Virtual Visit [facility] [address] [phone] Randy Maradiaga [address] [address] 12/09/2024 12:45 PM CDT Office Visit [facility] [address] [place] [phone] Tete Wang MD [address] [place] [phone] 12/09/2024 1:15 PM CDT Office Visit [facility] Pediatric Specialty Clinic [address] [place] [phone] Tete Wang MD [address] [place] [address]24[address] 12/15/2024 3:00 PM CDT Virtual Visit [facility] [address] [place] [address] Denise Woodson APRN [facility] [address] [place] [address] [id number] 01/19/[address] [facility] [address] [address] Any Joiner MD [address] [place] [address] *-*INCOMING RECORDS*-* 01/19/2025 3:[address]T Orders Only [facility] Pulmonary Function Testing [address] [address] 01/19/2025 4:00 PM CDT Office Visit [facility] [address] [phone] Any Joiner MD 420 [facility] 276 [place] [address] 06/01/2025 11:[address] [facility] Imaging [address] [place] [phone] Robin Zepeda MD [address] [place] [address] [phone] 06/04/2025 11:00 AM CDT Office [facility] Neurosurgery [address] 3rd [place] [phone] Robin Zepeda MD [address] [place] [address] Usha Simon APRN MANAGER PRACTICE [address] [place] [address] documented as of this encounter Visit Diagnoses Not on filedocumented in this encounter Additional Health Concerns Infection Onset Date Last Indicated Resolved Time Rule Out COVID-19 09/13/2024 09/13/2024 09/13/2024 12:31 PM INSTRUMENT REPAIR SPECIALIST Assessment Noted Time PHQ-9 Depression Total Score: 0 06/23/20 21 4:11 PM CDT documented as of this encounter Care Teams Bobbin Dumper Relationship Specialty Start Date End Date Winston Villatoro OD [facility] [place] [address] [place] [address] PCP - Ophthalmology Ophthalmology 02/11/13 Denise Woodson APRN MANAGER PRACTICE [address] [place] [address] PCP - General Family Practice 09/21/20 Denise Woodson APRN MANAGER PRACTICE [address] [place] [address] Assigned PCP 07/17/20 Usha Simon APRN MANAGER PRACTICE [address] 703[address] Nurse Practitioner Neurological Surgery 01/24/24 Dangelo Salinas MD [address] [place] [address] Neurology 01/27/24 Usha Simon APRN MANAGER PRACTICE [address] 153595 Assigned Neuroscience Provider 02/06/24 03/07/24 Anastasia Stearns, RN Lead Public Records Researcher 02/06/24 Germaine Aleman, W Community Health Worker Primary Care - CC 02/18/24 Robin Zepeda MD [address] 854625 Assigned Neuroscience Provider 03/08/24 05/07/24 Lisa Zambrano MD [address] [place] [address] Assigned Heart and Vascular Provider 05/08/24 07/07/24 Raul Hoyos MD 909 [facility] [place] [address] Assigned Neuroscience Provider 05/08/24 07/07/24 Joya Lira [facility] [address] [place] [address] Pharmacist Pharmacist 05/25/24 Joya Lira [facility] [address] [place] [address] Assigned MTM Pharmacist 06/08/24 Fabi Coates MD [address] [place] [address] 75 [place] [address] Genetics, Clinical 06/18/24 Robin Zepeda MD 9 [facility] [place], [place] 8[address]165 Assigned Neuroscience Provider 07/08/24 08/07/24 Danna Cardenas PA-C [address] [place] [address] Assigned Heart and Vascular Provider 07/08/24 Felicita Desai RN Lead Public Records Researcher 07/14/24 07/28/24 Arthur Salas [facility] [address] [address] Assigned Behavioral Health Provider 08/08/24 Randy Maradiaga DO [address] [place] [address] Assigned Neuroscience Provider 08/08/24 Tete Wang MD [facility] [place] [address] Genetics, Clinical 10/30/24 documented as of this encounter
--- OUTSIDE RECORDS SUMMARY | 2024-11-08 11:17 | XMS_ITS | Clinical Summary ---
Author Organization [facility] Address [address] [place] [address] Care Team Providers Care Longitudinal Float Operator Name Role Phone Winston Villatoro OD Unavailable [phone] Denise Woodson APRN [employer]A HOIST OPERATOR Unavailable [phone] Denise Woodson APRN [facility] Primary Care Provider Usha Simon APRN [facility] Unavailable [phone] Dangelo Salinas MD Unavailable Anastasia Stearns RN Unavailable Germaine Aleman [facility] Unavailable [phone] Joya Lira [facility] Unavailable Joya Lira [facility] Unavailable [phone] Fabi Coates MD Unavailable [phone] Danna CardenasC Unavailable [phone] SinyiArthur garcia DIRECTOR LOSS PREVENTION Unavailable [phone] Randy Maradiaga DO Unavailable + Tete Wang MD Unavailable [phone] Allergies Active Allergy Reactions Criticality Noted Date [...] Encounters Date Type Department Care Team Description 11/06/2024 Ajay Medical Advice [facility] [id number] [place] [phone] Denise Woodson APRN CNP 11/05/[address] [facility] Services - Neuroscience Service Line [address] [place] [phone] Bo Espinal MD 10/30/2024 Telephone [facility] [address] [place] [address] Ave [facility] 12th Flr,[place] [address] Unknown, Provider Appointment (Genetics reschedule) 10/21/2024 Ajay Medical Advice [facility] Neurology [facility] [place] [address] [facility] 3rd [place] [address] Randy Maradiaga DO 10/20/2024 2:30 PM CRAS Virtual Visit [facility] [address] [place] [address] Denise Woodson APRN CUPOLA HOIST OPERATOR History of stroke (Primary Dx); Anxiety 10/20/2024 Telephone [facility] [address] [phone] Randy Maradiaga, DO 10/14/2024 MyC Medical Advice [facility] [address] [place] [phone] Denise Woodson APRN CUPOLA HOIST OPERATOR Forms (Return to Work) 10/14/2024 Telephone [facility] [address] [place] [address] Denise Woodson APRN CUPOLA HOIST OPERATOR 10/14/2024 MyC Medical Advice [facility] [address] [place] [address] Janeen Badillo 10/09/2024 1:20 PM CRAS Virtual Visit [facility] Heart [address] [place] [phone] Danna Cardenas PA-C Chest pain, unspecified type; Tachycardia 10/05/2024 Telephone [facility] Neurology [address] [phone] Randy Maradiaga, DO 10/05/2024 MyC Medical Advice [facility] [address] [phone] Phoebe Del Cid 10/05/2024 MyC Medical Advice [facility] Care Coordination [facility] [address] [place] [address] Germaine Aleman, Dulce 09/30/2024 Orders Only [facility] [address] [address] Any Joiner MD Bronchopulmonary dysplasia (H) (Primary Dx) 09/30/2024 Telephone [facility] [address] [phone] None 09/29/2024 9:00 AM CRAS Virtual Visit [facility] [address] 3rd [place] [address] Randy Maradiaga DO Seizure-like activity (H) (Primary Dx); History of seizure; Cerebrovascular accident (CVA), unspecified mechanism (H) 09/28/2024 12:00 PM CRAS Virtual Visit [facility] [address] [place] [address] Denise Woodson APRN CNP Chronic obstructive pulmonary disease without exacerbation (H) (Primary Dx); BPD (bronchopulmonary dysplasia) (H); Anxiety 09/27/2024 Travel 09/24/2024 Travel 09/22/2024 MyC Medical Advice [facility] Heart [facility] [address] [facility] [address] [place] [address] Danna aCrdenas PA-C 09/18/2024 1:00 PM CRAS Office Visit [facility] [address] [place] [phone] Denise Woodson APRN CNP Chronic obstructive pulmonary disease without exacerbation (H) (Primary Dx); Acute cough; BPD (bronchopulmonary dysplasia) (H) 09/18/2024 Telephone [facility] [address] [place] [phone] Denise Woodson APRN CNP Erroneous encounter-disregard 09/18/2024 Travel 09/16/2024 Travel 09/14/2024 MyC Medical Advice [facility] [address] [place] [phone] Denise Woodson APRN CUPOLA HOIST OPERATOR 09/13/2024 10:54 AM CRAS - 09/13/2024 4:42 PM CRAS Emergency [facility] Emergency Dept [address] [place] [phone] Sameer Castillo, DO COPD with acute exacerbation (H); Upper respiratory tract infection, unspecified type Discharge Disposition: Home or Self Care 09/13/2024 Travel 09/11/2024 8:00 AM CRAS Ancillary Procedure [facility] [address] [facility] [address] [place] [phone] Randy Maradiaga, Seizure-like activity (H); History of seizure 09/11/2024 Travel 2024 Travel 09/04/2024 11:00 AM CRAS Office Visit [facility] [address] [place] [phone] Denise Woodson APRN CUPOLA HOIST OPERATOR Anxiety (Primary Dx); History of stroke 09/04/2024 MyC Medical Advice [facility] [address] [place] [phone] Qing Copeland 09/04/2024 Travel 09/03/2024 Travel 09/02/2024 Refill [facility] [address] [place] [address] Denise Woodson APRN CUPOLA HOIST OPERATOR Medication Refill 08/17/2024 12:30 PM CRAS Office Visit [facility] Neuropsychology [address] [phone] Robin Zepeda MD Waldron, Eric John, PhD LP 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); Cerebrovascular dural AV fistula; Cerebral infarction, unspecified mechanism (H) 08/17/2024 Abstract [facility] Neuropsychology [address] [phone] Tulio Ogden, PhD LP 08/17/2024 Travel 08/14/2024 Travel 08/14/2024 MyC Medical Advice [facility] [address] [phone] Randy Maradiaga DO 08/11/2024 MyC Medical Advice [facility] Mental Health and Addiction [address] [place] [address] Sinyigaya, Speciose, DIRECTOR LOSS PREVENTION 08/10/2024 3:00 PM CRAS Virtual Visit [facility] Mental Health and Addiction [address] [place] [address] Sinyigaya, Speciose, DIRECTOR LOSS PREVENTION MONAE (generalized anxiety disorder) (Primary Dx); MDD (major depressive disorder), recurrent episode, moderate (H) 08/10/2024 12:30 PM CRAS Virtual Visit [facility] Neuropsychology [address] [phone] Robin Zepeda MD 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); Dural arteriovenous fistula; Cerebrovascular accident (CVA), unspecified mechanism (H) from Last 3 Months Immunizations Name Administration Dates Next Due COVID-19 Vaccine ([employer]) 11/20/2020 Flu, Unspecified 07/11/2017,07/02/2014 HepB 03/03/2012,11/07/2011,10/04/2011 Hepatitis B, Adult 03/03/2012,11/07/2011, 012 Influenza (IIV3) PF 06/01/2013,07/04/2007 Influenza (prior to 2023) 06/01/2013,06/04/2012 Influenza Vaccine >6 months,quad, PF ,06/23/2021,07/27/2020,2018,08/07/2017,07/11/2017,06/16/2013,1 ,07/17/2006,10/17/2005 Influenza Vaccine IM Ages 6- 35 Months 4 Valent (PF) 07/17/2006 Mantoux Tuberculin Skin Test 11/07/2011, 11/07/2011,10/08/2011,01/23/ 2012 Pneumococcal 23 valent 03/16/2004 TD,PF 7+ (Tenivac) [...] Never 09/16/2024 How often do you attend catholic or christianity serv ices? 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 Not on file Not on file Not on file Not on file Not on file Not on file Not on file Last Filed Vital Signs Vital Sign Reading Time Taken Comments Blood Pressure 138/88 09/18/2024 12:51 PM CRAS Pulse 78 09/18/2024 12:51 PM CRAS Temperature 36.8 C (98.3 F) 09/18/2024 12:51 PM CRAS Respiratory Rate 12 09/18/2024 12:51 PM CRAS Oxygen Saturation 98% 09/18/2024 12:51 PM CRAS Inhaled Oxygen Concentration - - Weight 95.3 kg (210 lb) 09/29/2024 8:47 AM CRAS Height 174 cm (5' 8.5) 09/29/2024 8:47 AM CRAS Body Mass Index 31.47 09/29/2024 8:47 AM CRAS Plan of Treatment Upcoming Encounters Date Type Department Care Team (Late st Contact Info) Description 11/17/2024 2:30 PM CRAS Virtual Visit [facility] [address] [place] [phone] Denise Woodson APRN [facility] [address] [place], [place] [phone] 12/01/2024 4:00 PM CDT Virtual Visit [facility] Vascular [facility] [address] [place] [phone] Lisa Zambrano MD [address] [place] [phone] 12/03/2024 7:00 AM CDT Virtual Visit [facility] Neurology Clinic [address] 3rd [place] [phone] Randy Maradiaga DO [address] [place] [address] 12/09/2024 12:45 PM CDT Office Visit [facility] Pediatric Specialty Clinic [address] [place] [phone] Tete Wang MD [address] [place] [phone] 12/09/2024 1:15 PM CDT Office Visit [facility]ty [facility] [address] [place] [phone] Tete Wang MD [address] [place] [phone] 12/15/2024 3:00 PM CDT Virtual Visit [facility] [address] [place] [phone] Denise Woodson APRN [facility] [address] [place], [place] [phone] 01/19/2025 PRE VISIT [facility] [address] [phone] Any Joiner MD [address] [place] [phone] *-*INCOMING RECORDS*-* 01/19/2025 3:00 PM CDT Orders Only [facility] Pulmonary Function Testing [address] 3rd [place] [address] 01/19/2025 4:00 PM CDT Office Visit [facility] [address] [phone] Any Joiner MD [address] [place] [address] [place] [address] 06/01/2025 11:15 AM CDT Appointment [facility] [address] [place] [phone] Robin Zepeda MD [address] [place] [address] [phone] 06/04/2025 11:00 AM CDT Office Visit [facility] Neurosurgery Clinic [address] 3rd [place] [phone] Robin Zepeda MD [address] [place] [address] [phone] Usha Simon APRN CUPOLA HOIST OPERATOR [address] [place] [address] Health Maintenance Due Date Last Done Comments ADVANCE CARE PLANNING [address] COLONOGRAPHY 1976 FIT 1976 FLEX SIG 1976 SPIROMETRY 1976 COLONOSCOPY 1986 Pneumococcal Vaccine: Pediatrics (0 to 5 Years) and At-Risk Patients (6 to 49 Years) (2 of 2 - PCV) 03/16/2005 03/16/2004 YEARLY PREVENTIVE VISIT 01/11/2024 01/11/20 23, 07/27/2021, 07/27/2020, Additional history exists COVID-19 Vaccine (3 - season) 2024 07/07/2021, 11/20/2020 INFLUENZA VACCINE [...] PLATELETS & DIFFERENTIAL Routine 09/18/2024 1:23 PM CRAS Acute cough CBC WITH PLATELETS AND DIFFERENTIAL Routine 09/18/2024 1:23 PM CRAS Acute cough CT VASCULAR - HIM SCAN 4 12:00 AM CRAS XRAY IMAGING - HIM SCAN 09/15/20 24 12:[address] CHEST PULMONARY EMBOLISM W CONTRAST STAT 09/13/2024 12:59 PM CRAS INFLUENZA A/B, RSV AND SARS-COV2 PCR STAT 09/13/2024 11:49 AM CRAS XR CHEST 2 VIEWS STAT 09/13/2024 11:25 AM CRAS CBC WITH PLATELETS & DIFFERENTIAL STAT 09/13/2024 11:06 AM CRAS D DIMER QUANTITATIVE STAT 09/13/2024 11:06 AM CRAS TROPONIN T, HIGH SENSITIVITY Add-On 09/13/2024 11:06 AM CRAS EXTRA BLUE TOP TUBE STAT 09/13/2024 11:06 AM CRAS CBC WITH PLATELETS AND DIFFERENTIAL STAT 09/13/2024 11:06 AM CRAS EXTRA TUBE STAT 09/13/2024 11:06 AM CRAS COMPREHENSIVE METABOLIC PANEL STAT 09/13/2024 11:06 AM CRAS EKG 12-LEAD, TRACING ONLY STAT 09/13/2024 10:53 AM CRAS EEG VIDEO 3 HOUR CONTINUOUS MONITORING Routine 09/11/2024 11:00 AM CRAS Seizure-like activity (H) History of seizure XRAY IMAGING - HIM SCAN 09/08/20 12:00 AM CRAS AR PSYCL/NRPSYCL TST TECH 2+ TST EA ADDL 30 MIN Routine 08/19/2024 4:15 PM CRAS 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 Cerebral infarction, unspecified mechanism (H) AR PSYCL/NRPSYCL TST TECH 2+ TST 1ST 30 MIN Routine 08/19/2024 4:15 PM CRAS 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 Cerebral infarction, unspecified mechanism (H) AR NEUROPSYCHOLOGICAL TST EVAL PHYS/QHP EA ADDL HR Routine 08/19/2024 4:15 PM CRAS 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 Cerebral infarction, unspecified mechanism (H) AR NEUROPSYCHOLOGICAL TST EVAL PHYS/QHP 1ST HOUR Routine 08/19/2024 4:15 PM CRAS 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 Cerebral infarction, unspecified mechanism (H) HIV ANTIGEN ANTIBODY COMBO Routine 07/22/2024 11:17 AM CRAS Screening for HIV (human immunodeficiency virus) HEPATITIS C SCREEN REFLEX TO HCV RNA QUANT AND GENOTYPE Routine 07/22/2024 11:17 AM CRAS Need for hepatitis C screening test LIPID REFLEX TO DIRECT LDL PANEL STAT 07/13/2024 12:40 PM CDT MA SCREENING BILATERAL W/ MAT Routine 04/25/2022 5:03 PM CDT Visit for screening mammogram from Last 3 Months or Most Recently Relevant to Health Maintenance Results * (ABNORMAL) CBC with platelets and differential (09/18/2024 1:23 PM CRAS) Only the most recent of2 resultswithin the time period is included. WBC Count 13.5(H) 4.0 - 11.0 10e3/uL 09/18/2024 1:38 PM CRAS RM LABORATORY RBC Count 4.81 3.80 - 5.20 10e6/uL 09/18/2024 1:38 PM CRAS RM LABORATORY Hemoglobin 14.6 11.7 - 15.7 g/dL 09/18/2024 1:38 PM CRAS RM LABORATORY Hematocrit 43.6 35.0 - 47.0 % 09/18/2024 1:38 PM [facility] RM LABORATORY MCV 91 78 - 100 fL 09/18/2024 1:38 PM CRAS RM LABORATORY MCH 30.4 26.5 - 33.0 pg 09/18/2024 1:38 PM [facility]AS RM LABORATORY MCHC 33.5 31.5 - 36.5 g/dL 09/18/2024 1:38 PM [facility]AS RM LABORATORY RDW 12.4 10.0 - 15.0 % 09/18/2024 1:38 PM [facility] RM LAB[facility] Platelet Count 279 150 - 450 10e3/uL 09/18/2024 1:38 PM [facility] RM LAB[facility] % Neutrophils 86 % 09/18/2024 1:38 PM [facility] % Lymphocytes 11 % 09/18/2024 1:38 PM [facility] RM LAB[facility]AT[facility] % Monocytes 3 % 09/18/2024 1:38 PM [facility] RM LAB[facility]AT[facility] % Eosinophils 0 % 09/18/2024 1:38 PM [facility] RM LABORATORY % Basophils 0 % 09/18/2024 1:38 PM [facility] RM LABORATORY % Immature Granulocytes 0 % 09/18/2024 1:38 PM CRAS RM LABORATORY Absolute Neutrophils 11.5(H) 1.6 - 8.3 10e3/uL 09/18/2024 1:38 PM CRAS RM LABORATORY Absolute Lymphocytes 1.4 0.8 - 5.3 10e3/uL 09/18/2024 1:38 PM CRAS RM LABORATORY Absolute Monocytes 0.4 0.0 - 1.3 10e3/uL 09/18/2024 1:38 PM CRAS RM LABORATORY Absolute Eosinophils 0.1 0.0 - 0.7 10e3/uL 09/18/2024 1:38 PM CRAS RM LABORATORY Absolute Basophils 0.0 0.0 - 0.2 10e3/uL 09/18/2024 1:38 PM CRAS RM LABORATORY Absolute Immature Granulocytes 0.1 <=0.4 10e3/uL 09/18/2024 1:38 PM [facility]AS LABORATORY Blood BLOOD SPECIMEN / Unknown Venipuncture / Unknown 09/18/2024 1:23 PM CRAS 09/18/2024 1:31 PM CRAS Denise Woodson APRN CUPOLA HOIST OPERATOR LAB - BLOOD ORDERABLES Final Result LABORATORY [facility] [address] [facility] (no room number, 1st floor of clinic) [place] [address], [facility] * Xray Imaging - HIM Scan (09/15/2024 12:00 AM CRAS) Only the most recent of2 resultswithin the time period is included. Anatomical Region Laterality Modality Other 09/15/2024 us Provider Outside IMG DIAGNOSTIC IMAGING ORDERABL ES Final Result * CT Vascular - HIM Scan (09/15/2024 12:00 AM CRAS) Anatomical Region Laterality Modality Computed Tomogra phy 09/15/2024 us Provider Outside IMG CT ORDERABLES Final Result * CT Chest Pulmonary Embolism w Contrast (09/13/2024 12:59 PM CRAS) Anatomical Region Laterality Modality Chest, SUBRAD CT BODY, UMP CT CHEST Computed Tomography 09/13/2024 12:5 9 PM CRAS Impressions 09/13/2024 2:23 PM CRAS IMPRESSION: 1. No pulmonary artery embolism. 2. Mild emphysema and mild bronchiolitis with bronchial wall thickening and pulmonary air trapping. No pneumonic infiltrate or pleural effusion. Narrative 09/13/2024 2:23 PM CRAS EXAM: CT CHEST PULMONARY EMBOLISM W CONTRAST LOCATION: [facility] DATE: 09/13/2024 INDICATION: Chest pain [...] CT CHEST PULMONARY EMBOLISM W CONTRAST LOCATION: [facility] DATE: 09/13/2024 INDICATION: Chest pain [...] infiltrate or pleural effusion. Sameer Castillo DO G CT ORDERABLES Final Result * Influenza A/B, RSV and SARS-CoV2 PCR (COVID-19) Nasopharyngeal (09/13/2024 11:49 AM CRAS) [facility] Influenza A PCR Negative Negative 09/13/2024 12:31 PM [facility] LABORATORY Influenza B PCR Negative Negative 09/13/2024 12:31 PM [facility] LABORATORY RSV PCR Negative Negative 09/13/2024 12:31 PM [facility] LABORATORY SARS CoV2 PCR Negative Negative 09/13/2024 12:31 PM [facility] LABORATORY Comment:NEGATIVE: SARS-CoV-2 (COVID-19) RNA not detected, presumed negative. Swab NASOPHARYNGEAL STRUCTURE / Unknown Non-blood Collection / Unknown 09/13/2024 11:49 AM CRAS 09/13/2024 11:52 AM CRAS [facility] LABORATORY - 09/13/2024 12:31 PM CRAS Testing was performed using the Xpert Xpress CoV2/Flu/RSV Assay on the [employer] GeneXpert Instrument. This test should be ordered [...] management. This test was validated by the [facility]. These laboratories are certified under the Clinical Laboratory Improvement Amendments of 1988 (CLIA-88) as qualified to perfom high complexity laboratory testing. Sameer Castillo DO LAB - MICRO GENERA L ORDERABLES Final Result [facility] [address] 1st floor, [address] [place] [address], [facility] [phone] * Chest XR, PA & LAT (09/13/2024 11:25 AM CRAS) Anatomical Region Laterality Modality Chest Digital Radiogra phy 09/13/2024 11:2 5 AM CRAS Impressions 09/13/2024 12:27 PM CRAS IMPRESSION: Pulmonary hyperinflation consistent with known emphysema. PFO closure device. Mild bibasilar opacities likely reflect atelectasis. Stable biapical scarring. No pleural effusion. Stable heart size. Narrative 09/13/2024 12:27 PM CRAS EXAM: XR CHEST 2 VIEWS LOCATION: [facility] DATE: 09/13/2024 INDICATION: chst pain and sob aftr aspirationj COMPARISON: CT 03/18/2024 Procedure Note Dionicio Ennis MD - 09/13/2024 EXAM: XR CHEST 2 VIEWS LOCATION: [facility] DATE: 09/13/2024 INDICATION: chst pain and sob aftr aspirationj COMPARISON: CT 03/18/2024 IMPRESSION: Pulmonary hyperinflation consistent with known emphysema. PFOclosure device. Mild bibasilar opacities likely reflect atelectasis.Stable biapical scarring. No pleural effusion. Stable heart size. Sameer Castillo DO IMG DIAGNOSTIC TAYLA GING ORDERABLES Final Result * Extra Blue Top Tube (09/13/2024 11:06 AM CRAS) Hold Specimen x 09/13/2024 11:46 AM [facility] LABORATORY Blood VENOUS LINE / Unknown Venipuncture / Unknown 09/13/2024 11:06 AM CRAS 09/13/2024 11:15 AM CRAS Sameer Castillo DO LAB - BLOOD ORDERA BLES Final Result LABORATORY [facility] [address] 1st floor, [address] [place] [address], [facility] [phone] * Troponin T, High Sensitivity (09/13/2024 11:06 AM CRAS) Pathologist [facility] Troponin T, High Sensitivity <6 <=14 ng/L 09/13/2024 11:47 AM CRAS LABORATORY Comment: Either a High Sensitivity Troponin [...] Unknown Venipuncture / Unknown 09/13/2024 11:06 AM CRAS 09/13/2024 11:15 AM CRAS Sameer Castillo DO LAB - BLOOD ORDERA BLES Final Result LABORATORY [facility] [address] 1st floor, [address] [place] [address], [facility] [phone] * (ABNORMAL) D dimer quantitative (09/13/2024 11:06 AM [facility]) [facility] D-Dimer Quantitative 0.82(H) 0.00 - 0.50 ug/mL FEU 09/13/2024 11:54 AM [facility] LABORATORY Blood VENOUS LINE / Unknown Venipuncture / Unknown 09/13/2024 11:06 AM CRAS 09/13/2024 11:15 AM [facility] Narrative LABORATORY - 09/13/2024 11:54 AM [facility] This D-dimer assay is intended for use in conjunction with a clinical pretest probability assessment model to exclude pulmonary embolism (PE) and deep venous thrombosis (DVT) in outpatients suspected of PE or DVT. The cut-off value is 0.50 ug/mL FEU. Sameer Castillo DO LAB - BLOOD ORDERA BLES Final Result LABORATORY [facility] [address] 1st floor, [address] [place] [address], [facility] [phone] * (ABNORMAL) Comprehensive metabolic panel (09/13/2024 11:06 AM [facility]) [facility] Sodium 142 135 - 145 mmol/L 09/13/2024 11:47 AM [facility] LABORATORY Potassium 4.6 3.4 - 5.3 mmol/L 09/13/2024 11:47 AM [facility] LABORATORY Carbon Dioxide (CO2) 29 22 - 29 mmol/L 09/13/2024 11:47 AM [facility] LABORATORY Anion Gap 10 7 - 15 mmol/L 09/13/2024 11:47 AM [facility] LABOR[facility]ORY Urea Nitrogen 14.5 6.0 - 20.0 mg/dL 09/13/2024 11:47 AM [facility] LABOR[facility] Creatinine 0.82 0.51 - 0.95 mg/dL 09/13/2024 11:47 AM [facility] LABORATORY GFR Estimate 88 >60 mL/min/1.7 3m2 09/13/2024 11:47 AM [facility] LABORATORY Comment:eGFR calculated us2020 CKD-EPI equation. Calcium 10.1 8.8 - 10.4 mg/dL 09/13/2024 11:47 AM [facility] LABORATORY Comment:Reference intervals for this test were updated on 03/31/2024 to reflect our healthy population more accurately. There may be differences in the flagging of prior results with similar values performed with this method. Those prior results can be interpreted in the context of the updated reference intervals. Chloride 103 98 - 107 mmol/L 09/13/2024 11:47 AM [facility] LAB[facility]ATORY Glucose 105(H) 70 - 99 mg/dL 09/13/2024 11:47 AM [facility] Alkaline Phosphatase 117 40 - 150 U/L 09/13/2024 11:47 AM [facility] AST 28 0 - 45 U/L 09/13/2024 11:47 AM [facility] ALT 27 0 - 50 U/L 09/13/2024 11:47 AM [facility] Protein Total 7.9 6.4 - 8.3 g/dL 09/13/2024 11:47 AM [facility] Albumin 4.4 3.5 - 5.2 g/dL 09/13/2024 11:47 AM [facility] Bilirubin Total 0.9 <=1.2 mg/dL 09/13/2024 11:47 AM [facility] LABOR[facility] Blood VENOUS LINE / Unknown Venipuncture / Unknown 09/13/2024 11:06 AM CRAS 09/13/2024 11:15 AM [facility] Sameer Castillo DO LAB - BLOOD ORDERA BLES Final Result LABORATORY [facility] [address] 1[address] floor, [address] [place] [address], [facility] [phone] * EKG 12 lead (09/13/2024 10:53 AM [facility]) Systolic Blood Pressure mmHg RADIOLOGY RESULTS Diastolic Blood Pressure mmHg RADIOLOGY RESULTS Ventricular Rate 88 BPM RAD IOLOGY RESULTS Atrial Rate 88 BPM RADIOLOG Y RESULTS AR Interval 148 ms RADIOLOG Y RESULTS QRS Duration 78 ms RADIOLO GY RESULTS QT 316 ms RADIOLOGY RESULTS QTc 382 ms RADIOLOGY RESULTS P Corona 62 degrees RADIOLOGY RESULTS R AXIS 49 degrees RADIOLOGY RESULTS T Corona -12 degrees RADIOLOGY RESULTS Interpretation ECG Sinus rhythm Possible Left atrial enlargement T wave abnormality, consider inferolateral ischemia Abnormal ECG When compared with ECG of 10-May-2024 11:25, T wave inversion more evident in Inferior leads T wave inversion now evident in Anterior leads Confirmed by GENERATED REPORT, COMPUTER ([id number]), assistant editor Felicita Pettit ([id number]) on 09/13/2024 12:08:04 PM RADIOLOGY RESULTS 09/13/2024 10:5 3 AM CRAS 09/13/2024 12:08 PM CRAS us Tran Qureshi MD ECG ORDERABLES Edited R esult - Final RADIOLOGY RESULTS * EEG Video 2-12 hrs Continuous Monitoring (09/11/2024 11:00 AM CRAS) Narrative [facility] - 09/13/2024 10:50 PM CRAS VIDEO EEG DATE: 09/11/2024 VIDEO EEG LOG: [id number] VIDEO EEG #: 1 VIDEO EEG SOURCE [...] IMG EEG ORDERABLES Final Result [facility] * HIV Antigen Antibody Combo (07/22/2024 11:17 AM CRAS) HIV Antigen Antibody Combo Nonreactive Nonreactive 07/23/2024 2:55 AM CRAS [facility] Comment:Negative HIV-1 p24 a ntigen [...] Unknown Venipuncture / Unknown 07/22/2024 11:17 AM CRAS 07/22/2024 11:17 AM CRAS us Denise Woodson APRN CUPOLA HOIST OPERATOR LAB - BLOOD ORDERABLES Final Result [facility] [place] [facility] [address] [place] [address], Room [address] [place] [phone] * Hepatitis C Screen Reflex to HCV RNA Quant and Genotype (07/22/2024 11:17 AM CRAS) Hepatitis C Antibody Nonreactive Nonreactive 07/23/2024 10:25 AM CRAS [facility] Comment:A nonreactive screen ing test [...] Unknown Venipuncture / Unknown 07/22/2024 11:17 AM CRAS 07/22/2024 11:17 AM CRAS us Denise Woodson APRN CUPOLA HOIST OPERATOR LAB - BLOOD ORDERABLES Final Result [facility] [place] [facility] [address] [facility] [address] [facility], Room [address] [address] * (ABNORMAL) Lipid panel reflex to direct LDL (07/13/2024 12:40 PM CDT) [facility] Cholesterol 217(H) <200 mg/dL 07/13/2024 4:43 PM [...] BLOOD ORDERABLES F inal Result [facility] [place] [facility] [address] [facility] [address] Building, [address] [place] [address], [facility] Acute Care Lab [address] 1[address] floor, [address] [place] [address], [facility] [phone] * MA Screen Bilateral w/Mat (04/25/2022 5:03 [...] mailed to patient. JEVON HOWELL MD Denise Chintan PACKAGE DELIVERY DRIVER CUPOLA HOIST OPERATOR IMG MAMMOGRAPHY ORDERAB LES Final Result from Last 3 Months or Most Recently Relevant to Health Maintenance Insurance [employer] * Guarantor: Candy Adame Account Type Relation to Patient Date of Phone Billing Address 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 [address] [facility] [place] [address] [employer] * Guarantor: Alcon Zamora Account Type Relation to Patient Date of Phone Billing Address Medication Therapy Self 1975 [address] [place] [address] [employer] Advance Directives For more information, please contact: [phone] * Full Code (Latest Code Status on [...] patie nt/ legal decision maker Care Teams Longitudinal Float Operator Relationship Specialty Start Date End Date Winston Villatoro OD [facility] [place] [address] [place] [address] PCP - Ophthalmology Ophthalmology 02/11/13 Denise Woodson APRN CUPOLA HOIST OPERATOR [id number] [address] [id number] PCP - General Family Practice 09/21/20 Denise Woodson APRN CUPOLA HOIST OPERATOR [address] [address] [id number] Assigned PCP 07/17/20 Usha Simon APRN CUPOLA HOIST OPERATOR [address] [facility] [place] [address] Nurse Practitioner Neurological Surgery 01/24/24 Dangelo Salinas MD [address] [place] [address] Neurology 01/27/24 Anastasia Stearns, RN Lead Utility Worker [place] 02/06/24 Germaine Aleman, W Community Health Worker Primary Care - CC 02/18/24 Joya Lira Joleen [address] [place] [address] Pharmacist Pharmacist 05/25/24 Joya Lira [facility] [address] [place] [address] Assigned MTM Pharmacist 06/08/24 Fabi Coates MD [address] [place] [address] [address] [place] [address] Genetics, Clinical 06/18/24 Danna Cardenas PA-C [address] [place] [address] Assigned Heart and Vascular Provider 07/08/24 Arthur Salas LICSW [address] [place] [address] Assigned Behavioral Health Provider 08/08/24 Randy Maradiaga DO [address] [place], [place] [address] Assigned Neuroscience Provider 08/08/24 Tete Wang MD [address] [place], [place] 8[address] Genetics, Clinical 10/30/24
--- OUTSIDE RECORDS SUMMARY | 2024-11-08 11:17 | XMS_ITS | Encounter Summary ---
Author Organization [place] Address [address] [place] [address] Care Team Providers Care Skimmer Scoop Operator Name Role Phone Winston Villatoro OD Unavailable [phone] Denise Woodson APRN FUNDS DEVELOPMENT DIRECTOR Unavailable [phone] Denise Woodson APRN FUNDS DEVELOPMENT DIRECTOR Primary Care Provider Usha Simon APRN FUNDS DEVELOPMENT DIRECTOR Unavailable Dangelo Salinas MD Unavailable Anastasia Stearns RN Unavailable Germaine Aleman [facility] Unavailable [phone] Joya Lira [facility] Unavailable [phone] Joya Lira [facility] Unavailable [phone] Fabi Coates MD Unavailable [phone] Robin Zepeda MD Unavailable Danna Cardenas PA-C Unavailable [phone] Arthur [place]as Unavailable [phone] Randy Maradiaga DO Unavailable + Tete Wang MD Unavailable [phone] Encounter Details Date Type Department Care Team (Late st Contact Info) Description 08/01/2024 [facility] Medical [facility] [address] [place] [address] Randy Maradiaga, [address] [place] [address] [id number] Social History Tobacco Use Types Packs/Day Years [...] How often do you attend rastafari or christianity serv ices? Never 02/28/2024 Do [...] Answer Date Recorded PHQ-2 Score 2 08/04/2024 [facility] - Occupational [...] file Legal Sex Female 4:05 AM BUILDING ECONOMIST Gender Identity Not on file Sexual [...] st Contact Info) Description 11/17/2024 2:30 PM BUILDING ECONOMIST Virtual Visit [facility] [address] [place] [phone] Denise Woodson APRN FUNDS DEVELOPMENT DIRECTOR [address] [place], [place] [phone] 12/01/2024 4:00 PM CDT Virtual Visit [facility] Vascular [facility] [address] [place] [phone] Lisa Zambrano MD [address] [place] [address] 12/03/2024 7:00 AM CDT Virtual Visit [facility] Neurology [address] [phone] Randy Maradiaga, [address] [address] 12/09/2024 12:45 PM CDT Office Visit [facility] [address] [place] [phone] Tete Wang MD [address] [place] [address] 12/09/2024 1:15 PM CDT Office Visit [facility] [address] [place] [address] [phone] Tete Wang MD [address] [place] [address] 12/15/2024 3:00 PM CDT Virtual Visit [facility] [address] [place] [phone] Denise Woodson, BARRERA FUNDS DEVELOPMENT DIRECTOR [address] [place] [address] 01/19/2025 PRE VISIT [facility] Lung Science and [address] [phone] Any Joiner MD [address] [place] [phone] *-*INCOMING RECORDS*-* 01/19/2025 3:00 PM CDT Orders Only [facility] Pulmonary Function Testing [address] [address] 01/19/2025 4:00 PM CDT Office Visit [facility] Lung Science [address] [phone] Any Joiner MD [address] [place] [address] 06/01/2025 11:15 AM CDT Appointment [facility] [address] [facility] [address] [place] [phone] Robin Zepeda MD [address] [place] [address]78[address] 06/04/2025 11:00 AM CDT Office Visit [facility] Neurosurgery Clinic [address] [phone] Robin Zepeda MD [address] [place] [address] [phone] Usha Simon APRN FUNDS DEVELOPMENT DIRECTOR [address] [place] [phone] documented as of this encounter Visit Diagnoses Not on filedocumented in this encounter Additional Health Concerns Infection Onset Date Last Indicated Resolved Time Rule Out COVID-19 09/13/2024 09/13/2024 09/13/2024 12:31 PM BUILDING ECONOMIST Assessment Noted Time PHQ-9 Depression Total Score: 14 024 11:46 AM CDT documented as of this encounter Care Teams Skimmer Scoop Operator Relationship Specialty Start Date End Date Winston Villatoro OD [facility] [place] [address] [place] [address] PCP - Ophthalmology Ophthalmology 02/11/13 Denise Woodson APRN FUNDS DEVELOPMENT DIRECTOR [address] [facility] [place] [address] PCP - General Family Practice 09/21/20 Denise Woodson APRN FUNDS DEVELOPMENT DIRECTOR [address] [place] [address] Assigned PCP 07/17/20 Usha Simon APRN FUNDS DEVELOPMENT DIRECTOR 9[address] [facility], [place] [address] Nurse Practitioner Neurological Surgery 01/24/24 Dangelo Salinas MD [address] [place], [place] [phone] Neurology 01/27/24 Anastasia Stearns, RN Lead Supervisor Fish Processing 02/06/24 Germaine Aleman, CHW Community Health Worker Primary Care - CC 02/18/24 Joya Lira RPH [address] [place] [address] Pharmacist Pharmacist 05/25/24 Joya Lira [facility] [address], [place] [address] Assigned MTM Pharmacist 06/08/24 Fabi Coates MD [address] [place] [address] 75 [place] [address] Genetics, Clinical 06/18/24 Robin Zepeda MD 9 [facility] [place] [address] Assigned Neuroscience Provider 07/08/24 08/07/24 Danna Cardenas PA-C [address] [place] [address] Assigned Heart and Vascular Provider 07/08/24 Arthur [place]as PATIENT [facility] [address] [address] Assigned Behavioral Health Provider 08/08/24 Randy Maradiaga DO [address] [place] [address] Assigned Neuroscience Provider 08/08/24 Tete Wang MD [address] [place], [place] 90[address] Genetics, Clinical 10/30/24 documented as of this encounter
--- OUTSIDE RECORDS SUMMARY | 2024-11-08 11:17 | XMS_ITS ---
Author Organization [place] Address [address] [place] [address] Care Team Providers Care Mud Grinder Name Role Phone Shauna Winston M OD Unavailable [phone] Denise Woodson APRN CASH SALES AUDIT CLERK Unavailable [phone] Denise Woodson APRN CASH SALES AUDIT CLERK Primary Care Provider Usha Simon APRN CASH SALES AUDIT CLERK Unavailable [phone] Dangelo Salinas MD Unavailable Anastasia Stearns RN Unavailable [phone] Germaine Aleman [facility] Unavailable [phone] Joya Lira [facility] Unavailable [phone] Joya Lira [facility] Unavailable [phone] Fabi Coates MD Unavailable [phone] Danna Cardenas PA-C Unavailable [phone] Arthur [place]as WET PROCESS HEAD MILLER Unavailable [phone] Randy Maradiaga DO Unavailable + Tete Wang MD Unavailable [phone] Primary Care Care Coordination Status:Maintenance (Active) Start date:02/06/2024 Enrollment date:02/07/2024 Case Team Name Relationship Phone Anastasia Stearns RN Lead Ict Teacher(Respons ible Staff) [phone] Germaine Aleman CHW Community Health Worker Continued Care and Services Coordination
--- OUTSIDE RECORDS SUMMARY | 2024-11-08 11:17 | XMS_ITS | Clinical Summary ---
Author Organization [facility] Address [address] [place] [address] Care Team Providers Care Ripper Operator Name Role Phone Keira Irvin MD Primary [...] un specified 07/08/2007 Overview (07/08/2007): episodes in 2003, 2005, 2006 Allergic rhinitis, cause unspecified 07/08/2007 Congenital agenesis, hypoplasia, and dysplasia o f lung 07/08/2007 Overview (07/08/2007): bronchopulmonary dysplasia Cervical disc syndrome Fibromyalgia Encounters Date Type Department Care Team Description 11/06/2024 3:00 PM FISCAL OFFICER Ancillary Procedure [facility] [address] [place] [address] Arrived from Last 3 Months Immunizations Name Administration Dates Next Due COVID-19 vaccine (tidy NTSwiftStack 30mcg/0.3mL) PF, MDV 07/07/2021 Hepatitis B, Unspecified [...] on file Legal Sex Female 5:27 AM FISCAL OFFICER Gender Identity Not on file Sexual [...] Additional history exists Tetanus booster 01/04/2031 01/04/2021, 05/1 11/2010, 04/05/2003, Additional history exists Pneumococcal series for age 6-49 Aged Out 03/16/2004 No longer eligible based on patient's age to complete this topic Tdap Completed 01/04/2021, 01/26/2011 Procedures Procedure Name Priority Date/Time Associated Diagnosis Comments ECHO TTE COMPLETE WO CONTRAST Routine 11/06/2024 12:40 PM FISCAL OFFICER Hypereosinophilic syndrome (hes), unspecified LIPID PANEL W REFLEX MEASURED LDL Routine 08/03/2011 10:31 AM FISCAL OFFICER Screening for other and unspecified cardiovascular conditions from Last 3 Months or Most Recently Relevant to Health Maintenance Results * ECHO TTE COMPLETE WO CONTRAST (11/06/2024 12:40 PM FISCAL OFFICER) AORTIC VALVE MEAN PG 5 mmHg LVEDD 4.7 cm EJECTION FRACTION 55 - 60% Anatomical Region Laterality Modality Ultrasound 11/06/2024 12:0 2 PM FISCAL OFFICER Narrative 11/06/2024 1:05 PM FISCAL OFFICER ECHOCARDIOGRAM CHRISTOPHER TY : 1975 49 years Study Date: 11/06/2024 12:02:45 PM Gender: F BP: 128/70 mmHg Height: 173.00 cm BSA: 2.11 m Weight: 98.00 kg Tech: TORSTEN Referring MD: RUBEN NICOLE Site: [facility] [place] Location: [place]- Patient Location: Inpatient. Procedure: 2D, Color Doppler and Spectral Doppler. Indication for study: Hypereosinophilic syndrome (hes), unspecified Cardiac Rhythm: Regular and with premature ventricular contractions.Study quality: Technically limited. Final Impressions: 1. Technically limited exam. 2. No echocardiographic evidence of endomyocardial fibrosis. 3. Normal LV size, normal wall thickness, normal global systolic function with an estimated EF of 55 - 60%. 4. Right ventricular cavity size is normal, global systolic RV function is normal. 5. The mitral valve is normal, mild mitral regurgitation. 6. Normal diastolic function. 7. Trivial pericardial effusion. Chamber Sizes and Function Normal left ventricular size, normal wall thickness, normal global systolic function with an estimated EF of 55 - 60%. No resting regional wall motion abnormality visualized. Left atrial size is normal. Right ventricular cavity size is normal, global systolic RV function is normal. The right atrium is normal. The pulmonary artery is not well visualized. The sinus of Valsalva is normal sized. The ascending aorta is normal sized. Valves, RV Pressures and Diastolic Function The aortic valve is trileaflet, no stenosis and no regurgitation. The mitral valve is normal in structure, mild mitral regurgitation. Normal diastolic function. The tricuspid valve is normal in structure. Tricuspid regurgitation is trace regurgitation. The pulmonic valve is not well visualized. Trace pulmonary regurgitation. Masses, Effusion, Shunts There is trivial pericardial effusion. The inferior vena cava is normal sized, respiratory size variation less than 50%. No left to right shunting was detected by limited color flow Doppler interrogation of the interatrial septum. MEASUREMENTS AND CALCULATIONS 2-D Measurements and LV Function: LVID (d) 4.7 cm LV FS% (2D) 27 % LVID (s) 3.4 cm LVOT diameter 2.3 cm IVS (d) 1.0 cm HR 68 bpm LVPW (d) 1.1 cm RV Max 4C (d) 2.5 cm Ao Sinus 2.8 cm Asc Ao 3.0 cm LA 4.2 cm Diastology: Tissue Doppler e', Septum 0.09 m/s e', Lateral 0.12 m/s Aortic Valve: Vmax 1.4 m/s HANNA (V) 2.70 cm VTI 0.34 m HANNA (I) 2.45 cm LVOT V max 0.9 m/s Max PG 8 mmHg LVOT VTI 0.20 m Mean PG 5 mmHg SV 83 ml Dim Index 0.59 SV index 39 ml/m CO 5.6 l/min CI 2.7 l/min/m Tricuspid Valve and estimated PA pressures: TAPSE 2.6 cm . This study was interpreted by an [facility] accredited facility. Final Procedure Note Dillan Valencia MD - 11/06/2024 ECHOCARDIOGRAM CHRISTOPHER TY : 1975 49 years Study Date: 11/06/2024 12:02:45 PM Gender: F BP: 128/70 mmHg Height: 173.00 cm BSA: 2.11 m Weight: 98.00 kg Tech: TORSTEN Referring MD: RUBEN NICOLE Site: [facility] Location: [place]- Patient Location: Inpatient. Procedure: 2D, Color Doppler and Spectral Doppler. Indication for study: Hypereosinophilic syndrome (hes), unspecified Cardiac Rhythm: Regular and with premature ventricular contractions.Studyquality: Technically limited. Final Impressions: 1. Technically limited exam. 2. No echocardiographic evidence of endomyocardial fibrosis. 3. Normal LV size, normal wall thickness, normal global systolic functionwith an estimated EF of 55 - 60%. 4. Right ventricular cavity size is normal, global systolic RV functionis normal. 5. The mitral valve is normal, mild mitral regurgitation. 6. Normal diastolic function. 7. Trivial pericardial effusion. Chamber Sizes and Function Normal left ventricular size, normal wall thickness, normal globalsystolic function with an estimated EF of 55 - 60%. No resting regionalwall motion abnormality visualized. Left atrial size is normal. Rightventricular cavity size is normal, global systolic RV function is normal.The right atrium is normal. The pulmonary artery is not well visualized.The sinus of Valsalva is normal sized. The ascending aorta is normalsized. Valves, RV Pressures and Diastolic Function The aortic valve is trileaflet, no stenosis and no regurgitation. Themitral valve is normal in structure, mild mitral regurgitation. Normaldiastolic function. The tricuspid valve is normal in structure. Tricuspidregurgitation is trace regurgitation. The pulmonic valve is not wellvisualized. Trace pulmonary regurgitation. Masses, Effusion, Shunts There is trivial pericardial effusion. The inferior vena cava is normalsized, respiratory size variation less than 50%. No left to right shuntingwas detected by limited color flow Doppler interrogation of theinteratrial septum. MEASUREMENTS AND CALCULATIONS 2-D Measurements and LV Function: LVID (d) 4.7 cm LV FS% (2D) 27 % LVID (s) 3.4 cm LVOT diameter 2.3 cm IVS (d) 1.0 cm HR 68 bpm LVPW (d) 1.1 cm RV Max 4C (d) 2.5 cm Ao Sinus 2.8 cm Asc Ao 3.0 cm LA 4.2 cm Diastology: Tissue Doppler e', Septum 0.09 m/s e', Lateral 0.12 m/s Aortic Valve: Vmax 1.4 m/s HANNA (V) 2.70 cm VTI 0.34 m HANNA (I) 2.45 cm LVOT V max 0.9 m/s Max PG 8 mmHg LVOT VTI 0.20 m Mean PG 5 mmHg SV 83 ml Dim Index 0.59 SV index 39 ml/m CO 5.6 l/min CI 2.7 l/min/m Tricuspid Valve and estimated PA pressures: TAPSE 2.6 cm . This study was interpreted by an [facility] accredited facility. Final us Ruben Nicole MD ECHO ORD Final Result * LIPID PANEL W REFLEX MEASURED LDL (08/03/2011 10:31 AM FISCAL OFFICER) CHOLESTEROL,TOTAL 171 110 - 199 mg/dL [facility] TRIGLYCERIDES 67 <150 mg/dL [facility] HDL CHOLESTEROL 43 >40 mg/dL [facility] CHOL/HDL RATIO 3.98 <4.51 [facility] LDL CHOLESTEROL 115 <131 mg/dL [facility] PATIENT STATUS Fasting [facility] Blood specimen (specimen) BLOOD SPECIMEN / Unknown 08/03/2011 10:31 AM FISCAL OFFICER 08/03/2011 10:23 AM FISCAL OFFICER us Jasvir Pickens MD CHEMISTRY Final Re sult [facility] [address] [place] [address] from Last 3 Months or Most Recently Relevant to Health Maintenance Insurance PRIMO RODRIGUEZ [id number] Advance Directives * Full Code (Latest Code Status on File) Date Activated Date Inactivated Comments 01/09/2024 7:44 AM 01/09/2024 6:26 PM Question Answer Comments Code Status Discussion: Reviewed Preferences Care Teams Ripper Operator Relationship Specialty Start Date End Date Keira Irvin MD [address] [place] [address] PCP - General Family Practice 01/08/24
--- OUTSIDE RECORDS SUMMARY | 2024-11-08 11:18 | XMS_ITS | Encounter Summary ---
Author Organization [facility] Address [address] [place] [address] Care Team Providers Care Juice Weigher Name Role Phone Yung Madrigal MD Unavailable Unavailable Winston Villatoro OD Unavailable [phone] Denise Woodson APRN PRODUCTION STAFF WORKER Unavailable [phone] Denise Woodson APRN PRODUCTION STAFF WORKER Primary Care Provider Usha Simon APRN PRODUCTION STAFF WORKER Unavailable [phone] Dangelo Salinas MD Unavailable Usha Simon APRN PRODUCTION STAFF WORKER Unavailable Anastasia Stearns RN Unavailable Germaine Aleman CHW Unavailable Robin Zepeda MD Unavailable Lisa Zambrano MD Unavailable Raul Hoyos MD Unavailable Joya Lira [facility] Unavailable [phone] Joya Lira Joleen Unavailable Fabi Coates MD Unavailable [phone] Robin Zepeda MD Unavailable +[phone] Danna Cardenas PA-C Unavailable [phone] Felicita Desai RN Unavailable Unavailab Arthur Rios Unavailable [phone] Randy Maradiaga DO Unavailable + Tete Wang MD Unavailable [phone] Reason for Visit * Reason Onset Date Comments Medication Request 04/20/2021 escitalopram (LEXAPRO) 10 MG tablet Encounter Details Date Type Department Care Team (Late st Contact Info) Description 04/20/2021 MyC Medical Advice [facility] [address] [place] [address] Denise Woodson APRN [facility] [address] [place] [address] Medication Request (escitalopram (LEXAPRO)... 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 [place] [phone] Lisa Zambrano MD [address] [place] [address] 12/03/2024 7:00 AM CDT Virtual Visit [facility] Neurology Clinic [address] 3rd [place] [phone] Randy Maradiaga DO [address] [place] [address] 774275 12/09/2024 12:45 PM CDT Office Visit [facility] [address] [place] [address] [phone] Tete Wang MD [address] [place] [address] 12/09/2024 1:15 PM CDT Office Visit [facility] Pediatric [facility]ty Clinic [address] [place] [address] [phone] Tete Wang MD [address] [place] [address] 158724 12/15/2024 3:00 PM CDT Virtual Visit [facility] [address] [place] [phone] Denise Woodson APRN [facility] [address] [place], [place] 9071968 01/19/2025 PRE VISIT [facility] [address] [address] Any Joiner MD [address] [address] *-*INCOMING RECORDS*-* 01/19/2025 3:00 PM CDT Orders Only [facility] Pulmonary Function Testing [address] [place] [address] 01/19/2025 4:00 PM CDT Office Visit [facility] [address] [address] Any Joiner MD [address] [place] [address] 06/01/2025 11:15 AM CDT Appointment [facility] Imaging [address] [place] [phone] Robin Zepeda MD [address] [place] [address] 06/04/2025 11:00 AM CDT Office Visit [facility] Neurosurgery Clinic [address] [phone] Robin Zepeda MD [address] [place] [address] 502885 Usha Simon APRN [address] [id number] documented as of this encounter Visit Diagnoses Diagnosis Generalized anxiety disorder 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, recurrent episode, mild documented in this encounter Additional Health Concerns Infection Onset Date Last Indicated Resolved Time Rule Out COVID-19 09/13/2024 09/13/2024 09/13/2024 12:31 PM OIL FIELD TESTER Assessment Noted Time PHQ-9 Depression Total Score: 0 01/05/20 21 9:31 AM CDT documented as of this encounter Care Teams Juice Weigher Relationship Specialty Start Date End Date Yung Madrigal MD RETIRED PCP - Orthopaedics Orthopedics 08/26/12 01/20/24 Winston Villatoro OD [facility] [place] [address] [place] [address] PCP - Ophthalmology Ophthalmology 02/11/13 Denise Woodson APRN PRODUCTION STAFF WORKER [address] [place], [place] 3337268 PCP - General Family Practice 09/21/20 Denise Woodson APRN PRODUCTION STAFF WORKER [address] [place] [place], [place] 4020368 Assigned PCP 07/17/20 Usha Simon APRN PRODUCTION STAFF WORKER [address] 467175 Nurse Practitioner Neurological Surgery 01/24/24 Dangelo Salinas MD [address] [place] [address] Neurology 01/27/24 Usha Simon APRN PRODUCTION STAFF WORKER [address] 244455 Assigned Neuroscience Provider 02/06/24 03/07/24 Anastasia Stearns, RN Lead Chlorination Operator 02/06/24 Germaine Aleman, W Community Health Worker Primary Care - CC 02/18/24 Robin Zepeda MD [address] [address] Assigned Neuroscience Provider 03/08/24 05/07/24 Lisa Zambrano MD 6405 [facility] [address] [place] [address] Assigned Heart and Vascular Provider 05/08/24 07/07/24 Raul Hoyos MD [address] [place] [address] Assigned Neuroscience Provider 05/08/24 07/07/24 Joya Lira [facility] [address] [place] [address] Pharmacist Pharmacist 05/25/24 Joya Lira [facility] [address] [place] [address] Assigned MTM Pharmacist 06/08/24 Fabi Coates MD [address] [place] [address] 75 [place] [address] Genetics, Clinical 06/18/24 Robin Zepeda MD [address] [place] [address] Assigned Neuroscience Provider 07/08/24 08/07/24 Danna Cardenas PA-C 6405 [place] [address] Assigned Heart and Vascular Provider 07/08/24 Felicita Desai, RN Lead Chlorination Operator 07/14/24 07/28/24 Arthur Salas, [facility] [address] [place] [address] Assigned Behavioral Health Provider 08/08/24 Randy Maradiaga DO 909 [place], [place] 013125 Assigned Neuroscience Provider 08/08/24 Tete Wang MD 2450 [place], [place] 769484 Genetics, Clinical 10/30/24 documented as of this encounter
--- OUTSIDE RECORDS SUMMARY | 2024-11-08 11:18 | XMS_ITS | Encounter Summary ---
Author Organization [facility] Address [address] [place] [address] Care Team Providers Care Tray Line Worker Name Role Phone Timmy Perez MD Unavailable Unavailable Yung Madrigal MD Unavailable Unavailable Winston Villatoro OD Unavailable [phone] Apple Sykes MD Primary Care Provider Unavailab Westley Vera MD Unavailable [phone] GeorginaAlessandra Gómez APRN [employer] Primary Car e Provider Serum, Clara Garland MD Primary Care Provider Serum, Clara Garland MD Unavailable [phone] Serum, Clara Garland MD Unavailable [phone] Denise Woodson APRN [employer] Unavailable [phone] Denise Woodson APRN [employer] Primary Care Provider Usha Simon APRN [employer] Unavailable + [phone] Dangelo Salinas MD Unavailable Usha Simon APRN [employer] Unavailable + [phone] Anastasia Stearns RN Unavailable [phone] Germaine Aleman Unavailable [phone] Robin Zepeda MD Unavailable [phone] Lisa Zambrano MD Unavailable + [phone] Raul Hoyos MD Unavailable [phone] Joya Lira [facility] Unavailable [phone] SorayaJoya [facility] Unavailable [phone] Fabi Coates MD Unavailable [phone] DuaneRobin MD Unavailable [phone] Danna Cardenas PA-C Unavailable +[phone] Felicita Desai RN Unavailable Unavailab Arthur Rios SLOT TECHNICIAN Unavailable [phone] Randy Maradiaga DO Unavailable + Tete Wang MD Unavailable [phone] Reason for Visit * Reason Onset Date Comments MyChart Communication 05/30/2013 Encounter Details Date Type Department Care Team (Latest Contact Info) Description 05/30/[address] 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 [place] [phone] Lisa Zambrano MD [address] [place] [address] 12/03/2024 7:00 AM CDT Virtual Visit [facility] Neurology Clinic [address] 3rd [place] [phone] Randy Maradiaga DO [address] [place] [address] 095085 12/09/2024 12:45 PM CDT Office Visit [facility] Pediatric Specialty Clinic [address] [place] [phone] Tete Wang MD [address] [place] [address] 745714 12/09/2024 1:15 PM CDT Office Visit [facility] Pediatric Specialty Clinic [address] [place] [phone] Tete Wang MD [address] [place] [address] 739414 12/15/2024 3:00 PM CDT Virtual Visit [facility] [address] [place] [address] Denise Woodson APRN [facility] [address] [place], [place] 3389868 01/19/2025 PRE VISIT [facility] Clinic [address] [phone] Any Joiner MD [address] [place] [address]435 *-*INCOMING RECORDS*-* 01/19/2025 3:00 PM CDT Orders Only [facility] Pulmonary Function Testing [address] [place] [phone] 01/19/2025 4:00 PM CDT Office Visit [facility] [address] [phone] Any Joiner MD [address] [place] [address] 939585 06/01/2025 11:15 AM CDT Appointment [facility] Imaging [address] [place] [phone] Robin Zepeda MD [address] [place] [address] 025705 06/04/2025 11:00 AM CDT Office Visit [facility] Neurosurgery Clinic [address] [phone] Robin Zepeda MD [address] [place] [address] 988365 Usha Simon APRN [address] 725105 documented as of this encounter Visit Diagnoses Not on filedocumented in this encounter Additional Health Concerns Infection Onset Date Last Indicated Resolved Time Rule Out COVID-19 09/13/2024 09/13/2024 09/13/2024 12:31 PM ON CALL PHARMACY TECHNICIAN documented as of this encounter Care Teams Tray Line Worker Relationship Specialty Start Date End Date Timmy Perez MD PCP - Obstetrics/Gynecology 03/02/08 08/07/15 Yung Madrigal MD RETIRED PCP - Orthopaedics Orthopedics 08/26/12 01/20/24 Winston Villatoro, OD [facility] [place] [address] [place] [address] PCP - Ophthalmology Ophthalmology 02/11/13 Apple Sykes MD [facility] [place] [address] [place] [address] PCP - General Family Practice 05/04/13 10/25/16 Westley Bates MD XXX RETIRED XXX [address] [place] [address] PCP - ENT Otolaryngology 05/14/13 07/28/18 [facility] G[facility]mez APRN GM VIDEO [address] [facility] [place] [id number] PCP - General Nurse Practitioner 10/26/16 02/06/17 Clara Cornell MD [address] [facility] [place] [address] PCP - General Internal Medicine 02/07/17 09/20/20 Clara Cornell MD 8675 [facility] [place] [address] PCP - Assigned PCP 01/17/17 11/18/18 Denise Woodson APRN [employer] [address] [place] [address] PCP - General Family Practice 09/21/20 Clara Cornell MD 8675 [place] [address] Assigned PCP 01/17/17 07/16/20 Denise Woodson APRN [employer] [address] [place] [address] Assigned PCP 07/17/20 Usha Simon APRN [employer] [address] 987715 Nurse Practitioner Neurological Surgery 01/24/24 Dangelo Salinas MD [address] [place], [place] [phone] Neurology 01/27/24 Usha Simon APRN [employer] [address] 024795 Assigned Neuroscience Provider 02/06/24 03/07/24 Anastasia Stearns, RN Lead Senior Windows Engineer 02/06/24 Germaine Aleman, W Community Health Worker Primary Care - CC 02/18/24 Robin Zepeda MD [address] 757505 Assigned Neuroscience Provider 03/08/24 05/07/24 Lisa Zambrano MD [address] [place] 286605 Assigned Heart and Vascular Provider 05/08/24 07/07/24 Raul Hoyos MD 9 [facility] [place] [address] Assigned Neuroscience Provider 05/08/24 07/07/24 Joya Lira [facility] [address] [place] [address] Pharmacist Pharmacist 05/25/24 Joya Lira [facility] [address] [place] [address] Assigned MTM Pharmacist 06/08/24 Fabi Coates MD [address] [place] [address] 75 [place] [address] Genetics, Clinical 06/18/24 Robin Zepeda MD [address] [place] [address] [address] Assigned Neuroscience Provider 07/08/24 08/07/24 Danna Cardenas PA-C [address] [place] [address] Assigned Heart and Vascular Provider 07/08/24 Felicita Desai RN Lead Senior Windows Engineer 07/14/24 07/28/24 Arthur Salas [facility] [address] [address] Assigned Behavioral Health Provider 08/08/24 Randy Maradiaga DO 909 [place] [address] Assigned Neuroscience Provider 08/08/24 Tete Wang MD 2450 [place] [address] Genetics, Clinical 10/30/24 documented as of this encounter
--- OUTSIDE RECORDS SUMMARY | 2024-11-08 11:18 | XMS_ITS | Encounter Summary ---
Author Organization [facility] Address [address] [place] [address] Care Team Providers Care Banking Supervisor Name Role Phone Winston Villatoro OD Unavailable [phone] Denise Woodson APRN EARLY HEAD START TEACHER Unavailable [phone] Denise Woodson APRN EARLY HEAD START TEACHER Primary Care Provider Usha Simon APRN EARLY HEAD START TEACHER Unavailable + [phone] Dangelo Salinas MD Unavailable Anastasia Stearns RN Unavailable [phone] Germaine Aleman [facility] Unavailable [phone] Joya Lira [facility] Unavailable [phone] Joya Lira [facility] Unavailable [phone] Fabi Coates MD Unavailable [phone] Robin Zepeda MD Unavailable [phone] Danna Cardenas PA-C Unavailable +[phone] Felicita Desai RN Unavailable Unavailab Arthur RiosSW Unavailable +[phone] Randy Maradiaga DO Unavailable + Tete Wang MD Unavailable +[phone] Encounter Details Date Type Department Care Team (Late st Contact Info) Description 07/16/2024 MyC Medical Advice [facility] Addiction [facility] [place] [address] [facility] [address] [place] [address] OlayinkaArthur forbes [facility] [address] [place] [address] Social History Tobacco Use Types Packs/Day Years [...] How often do you attend catholic or latter day serv ices? 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 [place] [address] Lisa Zambrano MD [address] [place] 496[address] 12/03/2024 7:00 AM CDT Virtual Visit [facility] Neurology [address] [phone] Randy Maradiaga, [address] [address] 12/09/2024 12:45 PM CDT Office Visit [facility] [address] [place] [address] [phone] Tete Wang MD [address] [place] [address] 12/09/2024 1:15 PM CDT Office Visit [facility] [address] [place] [address] [phone] Tete Wang MD [address] [place] [address] 12/15/2024 3:00 PM CDT Virtual Visit [facility] [address] [place] [phone] Denise Woodson APRN EARLY HEAD START TEACHER [address] [place] [address] 01/19/2025 PRE VISIT [facility] Lung Science [address] [phone] Any Joiner MD [address] [place] [address] 410975 *-*INCOMING RECORDS*-* 01/19/2025 3:00 PM CDT Orders Only [facility] Pulmonary Function Testing [address] [phone] 01/19/2025 4:00 PM CDT Office Visit [facility] Lung Science [address] [phone] Any Joiner MD [address] [place] [address] 694195 06/01/2025 11:15 AM CDT Appointment [facility] Imaging [address] [facility] [address] [place] [phone] Robin Zepeda MD [address] [place] [address] 181755 06/04/2025 11:00 AM CDT Office Visit [address] [phone] Robin Zepeda MD [address] [place] [address] 765825 Usha Simon APRN EARLY HEAD START TEACHER [address] [place] [address] documented as of this encounter Visit Diagnoses Not on filedocumented in this encounter Additional Health Concerns Infection Onset Date Last Indicated Resolved Time Rule Out COVID-19 09/13/2024 09/13/2024 09/13/2024 12:31 PM HOUSING RELOCATION Assessment Noted Time PHQ-9 Depression Total Score: 14 024 11:46 AM CDT documented as of this encounter Care Teams Banking Supervisor Relationship Specialty Start Date End Date Winston Villatoro OD [facility] [place] [address] [place] [address] PCP - Ophthalmology Ophthalmology 02/11/13 Denise Woodson APRN EARLY HEAD START TEACHER [address] [place] [address] PCP - General Family Practice 09/21/20 Denise Woodson APRN EARLY HEAD START TEACHER [address] [address] [facility] [place] [address] Assigned PCP 07/17/20 Usha Simon APRN EARLY HEAD START TEACHER 909 [facility]2121[place] [address] Nurse Practitioner Neurological Surgery 01/24/24 Dangelo Salinas MD [address] [place] [address] Neurology 01/27/24 Anastasia Stearns, RN Lead Computer Tester 02/06/24 Germaine Aleman, CHW Community Health Worker Primary Care - CC 02/18/24 Joya Lira R[facility] [address] [place] [address] Pharmacist Pharmacist 05/25/24 Joya Lira R[facility] [address] [place] [address] Assigned MTM Pharmacist 06/08/24 Fabi Coates MD [address] [place] [address] 75 [place] [address] Genetics, Clinical 06/18/24 Robin Zepeda MD 909 [facility]121[place] [address] Assigned Neuroscience Provider 07/08/24 08/07/24 Danna Cardenas PA-C 6405 [place] [address] Assigned Heart and Vascular Provider 07/08/24 Felicita Desai, RN Lead Computer Tester 07/14/24 07/28/24 Arthur Salas, [facility] [address] [place] [address] Assigned Behavioral Health Provider 08/08/24 Randy Maradiaga DO 909 [place], [place] 828215 Assigned Neuroscience Provider 08/08/24 Tete Wang MD 2450 [place] [address] Genetics, Clinical 10/30/24 documented as of this encounter
--- OUTSIDE RECORDS SUMMARY | 2024-11-08 11:18 | XMS_ITS | Encounter Summary ---
Author Organization [place] Address [address] [place] [address] Care Team Providers Care Nursing Surgical Services Director Name Role Phone Yung Madrigal MD Unavailable Unavailable Winston Villatoro OD Unavailable [phone] Denise Woodson APRN STONE SPLITTER Unavailable [phone] Denise Woodson APRN STONE SPLITTER Primary Care Provider Usha Simon APRN STONE SPLITTER Unavailable [phone] Dangelo Salinas MD Unavailable Usha Simon APRN STONE SPLITTER Unavailable Anastasia Stearns RN Unavailable [phone] Germaine Aleman CHW Unavailable Robin Zepeda MD Unavailable Lisa Zambrano MD Unavailable Raul Hoyos MD Unavailable Joya Lira [facility] Unavailable [phone] Joya Lira Joleen Unavailable Fabi Coates MD Unavailable [phone] Robin Zepeda MD Unavailable [phone] Danna Cardenas PA-C Unavailable [phone] Felicita Desai RN Unavailable Unavailab Arthur Rios Unavailable [phone] Randy Maradiaga DO Unavailable + Tete Wang MD Unavailable [phone] Encounter Details Date Type Department Care Team (Late st Contact Info) Description 01/22/2022 [facility] [address] [place] [address] Angelo Escobar Social History Tobacco [...] on file Legal Sex Female 4:05 AM TOY DEPARTMENT MANAGER Gender Identity Not on file Sexual [...] (Late Contact Info) Description 11/17/2024 2:30 PM TOY DEPARTMENT MANAGER [facility] [address] [facility] [place] [address] Denise Woodson APRN STONE SPLITTER [address] [facility] [place] [address] 12/01/2024 4:00 PM CDT Virtual Visit [facility] [place] [address] [phone] Lisa Zambrano MD [address] [facility] [address] [place] [address] 12/03/2024 7:00 AM CDT Virtual Visit [facility] Neurology [address] 3rd [place] [phone] Randy Maradiaga, [address] 840715 12/09/2024 12:45 PM CDT Office Visit [facility] [address] [place] [address] [phone] Tete Wang MD [address] [place] [address] 564204 12/09/2024 1:15 PM CDT Office Visit [facility] [address] [place] [address] [phone] Tete Wang MD [address] [place] [address] 772614 12/15/2024 3:00 PM CDT Virtual Visit [facility] [address] [place] [phone] Denise Woodson APRN [facility] [address] [place] [address] 01/19/2025 PRE VISIT [facility] [address] [phone] Any Joiner MD [address] [place] [address] [phone] *-*INCOMING RECORDS*-* 01/19/2025 3:00 PM CDT Orders Only [facility] Pulmonary Function Testing [address] [phone] 01/19/2025 4:00 PM CDT Office Visit [facility] [address] [phone] Any Joiner MD 420 [facility] [address] [place] [address] 06/01/2025 11:[address] [facility] [address] [place] [address] [place] [phone] Robin Zepeda MD [address] [place] [address] 332965 06/04/2025 11:00 AM CDT Office Visit [facility] Neurosurgery [address] [phone] Robin Zepeda MD [address] [place] [address] Usha Simon APRN [address] [address] documented as of this encounter Visit Diagnoses Not on filedocumented in this encounter Additional Health Concerns Infection Onset Date Last Indicated Resolved Time Rule Out COVID-19 09/13/2024 09/13/2024 09/13/2024 12:31 PM TOY DEPARTMENT MANAGER Assessment Noted Time PHQ-9 Depression Total Score: 0 06/23/20 21 4:11 PM CDT documented as of this encounter Care Teams Nursing Surgical Services Director Relationship Specialty Start Date End Date Yung Madrigal MD RETIRED PCP - Orthopaedics Orthopedics 08/26/12 01/20/24 Winston Villatoro OD [facility] [place] [address] [facility] [address] [place] [address] PCP - Ophthalmology Ophthalmology 02/11/13 Denise Woodson APRN STONE SPLITTER [address] [place] [address] PCP - General Family Practice 09/21/20 Denise Woodson APRN STONE SPLITTER [address] [place] [address] Assigned PCP 07/17/20 Usha Simon APRN STONE SPLITTER [address] [place] [address] 668035 Nurse Practitioner Neurological Surgery 01/24/24 Dangelo Salinas MD [address] [facility] [address] [address] Neurology 01/27/24 Usha Simon APRN STONE SPLITTER [address] [place] [address] Assigned Neuroscience Provider 02/06/24 03/07/24 Anastasia Stearns, RN Lead Boats Renter 02/06/24 Germaine Aleman, CHW Community Health Worker Primary Care - CC 02/18/24 Robin Zepeda MD [address] [place] [address] Assigned Neuroscience Provider 03/08/24 05/07/24 Lisa Zambrano MD 6[address] [facility] [address] [place] [address] Assigned Heart and Vascular Provider 05/08/24 07/07/24 Raul Hoyos MD [address] [address] Assigned Neuroscience Provider 05/08/24 07/07/24 Joya Lira [facility] [address] [place] [address] Pharmacist Pharmacist 05/25/24 Joya Lira [facility] [address] [place] [address] Assigned MTM Pharmacist 06/08/24 Fabi Coates MD [address] [place] [address] 75 [place] [address] Genetics, Clinical 06/18/24 Robin Zepeda MD [address] [address] Assigned Neuroscience Provider 07/08/24 08/07/24 Danna Cardenas PA-C 6405 [place] [address] Assigned Heart and Vascular Provider 07/08/24 Felicita Desai, RN [employer] Renter 07/14/24 07/28/24 Arthur Salas, [facility] [address] [place] [address] Assigned Behavioral Health Provider 08/08/24 Randy Maradiaga DO 909 [place], [place] 773615 Assigned Neuroscience Provider 08/08/24 Tete Wang MD 2450 [place], [place] 809204 Genetics, Clinical 10/30/24 documented as of this encounter
--- OUTSIDE RECORDS SUMMARY | 2024-11-08 11:18 | XMS_ITS | Encounter Summary ---
Author Organization [place] Address [address] [place] [address]. [place] [address] Care Team Providers Care Java Software Developer Name Role Phone Timmy Perez MD Unavailable Unavailable Encounter Details Date Type Department Care Team (Late st Contact Info) Description 01/17/2012 3:20 PM T [facility] in [address] [phone] Luis Walsh [address] [place] [address] Interface, MD [place] Social History Tobacco Use Types Packs/Day Years Used Date Smoking Tobacco: Never Passive Smoke Exposure: Never Smokeless Tobacco: Never Alcohol Use Standard Drinks/Week Comments Not Currently 0 (1 standard drink = 0.6 oz pur e alcohol) minimal Comments No Sex and Gender Information Value Date Recorded Sex Assigned at Not on file Legal Sex Female 4:05 AM INTERNET CAFE MANAGER Gender Identity Not on file Sexual Orientation Not on file 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 [place] [phone] Lisa Zambrano MD [address] [place] 136075 12/03/2024 7:00 AM CDT Virtual Visit [facility] Neurology [address] [phone] Randy Maradiaga, [address] [address] 12/09/2024 12:45 PM CDT Office Visit [facility] [address] [place] [address] [phone] Tete Wang MD [address] [place] [address] 12/09/2024 1:15 PM CDT Office Visit [facility] [address] [place] [address] [phone] Tete Wang MD [address] [place] [address] 12/15/2024 3:00 PM CDT Virtual Visit [facility] [address] [place] [phone] Denise Woodson APRN [facility] [address] [place], [place] [phone] 01/19/2025 PRE VISIT [facility] Lung Science [address] [phone] Any Joiner MD [address] [place] [address] *-*INCOMING RECORDS*-* 01/19/2025 3:00 PM CDT Orders Only [facility] Pulmonary Function Testing [address] [phone] 01/19/2025 4:00 PM CDT Office Visit [facility] Lung Science [address] [phone] Any Joiner MD [address] [place] [address] 492735 06/01/2025 11:15 AM CDT Appointment [facility] [address] [facility] [address] [place] [phone] Robin Zepeda MD [address] [place] [address] 967515 06/04/2025 11:00 AM CDT Office Visit [facility] Neurosurgery [address] [phone] Robin Zepeda MD [address] [place] [address] Usha Simon APRN [address] 127805 documented as of this encounter Visit Diagnoses Not on filedocumented in this encounter Additional Health Concerns Infection Onset Date Last Indicated Resolved Time Rule Out COVID-19 09/13/2024 09/13/2024 09/13/2024 12:31 PM INTERNET CAFE MANAGER documented as of this encounter Care Teams Java Software Developer Relationship Specialty Start Date End Date Timmy Perez MD PCP - Obstetrics/Gynecology 03/02/0807/18 documented as of this encounter
--- OUTSIDE RECORDS SUMMARY | 2024-11-08 11:18 | XMS_ITS | Encounter Summary ---
Author Organization [place] Address [address] [place] [address] Care Team Providers Care City Editor Name Role Phone Yung Madrigal MD Unavailable Unavailable Winston Villatoro OD Unavailable [phone] Denise Woodson APRN CABLE SWAGER Unavailable [phone] Denise Woodson APRN CABLE SWAGER Primary Care Provider Usha Simon APRN CABLE SWAGER Unavailable [phone] Dangelo Salinas MD Unavailable Usha Simon APRN CABLE SWAGER Unavailable Anastasia Stearns RN Unavailable Germaine Aleman CHW Unavailable Robin Zepeda MD Unavailable Lisa Zambrano MD Unavailable Raul Hoyos MD Unavailable Joya Lira [facility] Unavailable [phone] Joya Lira Joleen Unavailable [phone] Fabi Coates MD Unavailable [phone] Robin Zepeda MD Unavailable [phone] Danna Cardenas PA-C Unavailable Felicita Desai RN Unavailable Unavailab Arthur Rios Unavailable [phone] Randy Maradiaga DO Unavailable + Tete Wang MD Unavailable [phone] Reason for Visit * Reason Onset Date Comments URI 09/21/2020 Encounter Details Date Type Department Care Team (Late st Contact Info) Description 09/21/2020 [facility] [address] [place] [address] Denise Woodson APRN [facility] [address] [place] [address] URI Social History Tobacco Use Types Packs/Day Years Used Date Smoking Tobacco: Never Smokeless Tobacco: Never Alcohol Use Standard Drinks/Week Comments Yes 0 (1 standard drink = 0.6 oz pur e alcohol) minimal PHQ-2 Answer Date Recorded PHQ-2 Score 2 07/13/2020 Comments No Sex and Gender Information Value Date Recorded Sex Assigned at Not on file Legal Sex Female 4:05 AM RANGE MOUNTER Gender Identity Not on file Sexual Orientation [...] COVID-19? No / Unsure 09/21/2020 12:04 PM RANGE MOUNTER documented as of this encounter Miscellaneous Notes * Telephone Encounter - Kati Yang RN - 09/21/2020 10:54 AM CST [employer] message sent to patient. Kati Yang RN E MOUNTER documented in this encounter Plan of Treatment Upcoming Encounters Date Type Department Care Team (Late st Contact Info) Description 11/17/2024 2:30 PM RANGE MOUNTER Virtual Visit [facility] [place] [address] [place] [phone] Denise Woodson APRN CABLE SWAGER [address] [place], [place] [phone] 12/01/2024 4:00 PM CDT Virtual Visit [facility] [place] [address] [place] [phone] Lisa Zambrano MD [address] [place] [address] 12/03/2024 7:00 AM CDT Virtual Visit [facility] Neurology [address] [phone] Randy Maradiaga, [address] [address] 12/09/2024 12:45 PM CDT Office Visit [facility] [address] [place] [address] [phone] Tete Wang MD [address] [place] [address] 12/09/2024 1:15 PM CDT Office Visit [facility] [address] [place] [address] [phone] Tete Wang MD [address] [place] [address] 936064 12/15/2024 3:00 PM CDT Virtual Visit [facility] [address] [place] [phone] Denise Woodson APRN CABLE SWAGER [address] [place] [address] 01/19/2025 PRE VISIT [facility] Lung Science [address] [phone] Any Joiner MD [address] [place] [address] 307515 *-*INCOMING RECORDS*-* 01/19/2025 3:00 PM CDT Orders Only [facility] Pulmonary Function Testing [address] [place] [address] 01/19/2025 4:00 PM CDT Office Visit [facility] Science [address] [phone] Any Joiner MD [address] [place] [address] 444625 06/01/2025 11:15 AM CDT Appointment [facility] Imaging [address] [place] [address] [place] [phone] Robin Zepeda MD [address] [place] [address] 482665 06/04/2025 11:00 AM CDT Office [facility] Neurosurgery Clinic [address] [phone] Robin Zepeda MD [address] [place] [address] 229865 Usha Simon APRN CABLE SWAGER [address] [place] [address] [phone] documented as of this encounter Visit Diagnoses Not on filedocumented in this encounter Additional Health Concerns Infection Onset Date Last Indicated Resolved Time Rule Out COVID-19 09/13/2024 09/13/2024 09/13/2024 12:31 PM RANGE MOUNTER Assessment Noted Time PHQ-9 Depression Total Score: 0 06/15/20 19 7:09 PM CDT documented as of this encounter Care Teams City Editor Relationship Specialty Start Date End Date Yung Madrigal MD RETIRED PCP - Orthopaedics Orthopedics 08/26/12 01/20/24 Winston Villatoro OD [facility] [place] [address] [facility] [address] [place] [address] PCP - Ophthalmology Ophthalmology 02/11/13 Denise Woodson APRN CABLE SWAGER [address] [place] [address] PCP - General Family Practice 09/21/20 Denise Woodson APRN CABLE SWAGER [address] [place] [address] Assigned PCP 07/17/20 Usha Simon APRN CABLE SWAGER [address] [place] [address] 973325 Nurse Practitioner Neurological Surgery 01/24/24 Dangelo Salinas MD [address] [phone] Neurology 01/27/24 Usha Simon APRN CABLE SWAGER [address] 465335 Assigned Neuroscience Provider 02/06/24 03/07/24 Anastasia Stearns, RN Lead Direct Mail Clerk 02/06/24 Germaine Aleman, W Community Health Worker Primary Care - CC 02/18/24 Robin Zepeda MD [address] [place] [address] Assigned Neuroscience Provider 03/08/24 05/07/24 Lisa Zambrano MD [address] [facility] [address] [place] [address] Assigned Heart and Vascular Provider 05/08/24 07/07/24 Raul Hoyos MD [address] [place] [address] Assigned Neuroscience Provider 05/08/24 07/07/24 Joya Lira R[facility] [address] [place] [address] Pharmacist Pharmacist 05/25/24 Joya Lira R[facility] [address] [place] [address] Assigned MTM Pharmacist 06/08/24 Fabi Coates MD [address] [place] [address] 75 [place] [address] Genetics, Clinical 06/18/24 Robin Zepeda MD [address] [place] [address] Assigned Neuroscience Provider 07/08/24 08/07/24 Danna Cardenas PA-C 6405 [place] [address] Assigned Heart and Vascular Provider 07/08/24 Felicita Desai, RN Lead Direct Mail Clerk 07/14/24 07/28/24 Arthur Salas, [facility] [address] [place] [address] Assigned Behavioral Health Provider 08/08/24 Randy Maradiaga DO 909 [place] [address] Assigned Neuroscience Provider 08/08/24 Tete Wang MD 2450 [place] [address] Genetics, Clinical 10/30/24 documented as of this encounter
--- OUTSIDE RECORDS SUMMARY | 2024-11-08 11:18 | XMS_ITS | Encounter Summary ---
Author Organization [place] Address [address] [place] [address] Care Team Providers Care Pickle Cutter Name Role Phone Yung Madrigal MD Unavailable Unavailable Winston Villatoro OD Unavailable [phone] Serum, Clara Garland MD Primary Care Provider Serum, Clara Garland MD Unavailable [phone] Denise Woodson APRN AUTO ROLLER Unavailable [phone] Denise Woodson ANIMAL SHELTER MANAGER AUTO ROLLER Primary Care Provider Usha Simon ANIMAL SHELTER MANAGER AUTO ROLLER Unavailable Dangelo Salinas MD Unavailable Usha Simon ANIMAL SHELTER MANAGER AUTO ROLLER Unavailable Anastasia Stearns RN Unavailable [phone] Germaine Aleman CHW Unavailable [phone] Robin Zepeda MD Unavailable Lisa Zambrano MD Unavailable Raul Hoyos MD Unavailable Joya Lira [facility] Unavailable [phone] Joya Lira [facility] Unavailable Fabi Coates MD Unavailable [phone] Robin Catalan MD Unavailable Danna Cardenas PA-C Unavailable Felicita Desai RN Unavailable Unavailab Arthur Rios [facility] Unavailable [phone] Randy Maradiaga Unavailable + Tete Wang MD Unavailable [phone] Reason for Visit * Reason Onset Date Comments LAB REQUEST 06/16/2019 Encounter Details Date Type Department Care Team (Late st Contact Info) Description 06/16/2019 MyC Medical Advice [facility] [address] [facility] [address] [place] [address] Serum, Clara Garland MD [address] [place] [address] LAB REQUEST Social History Tobacco [...] on file Legal Sex Female 4:05 AM LOOM SETTER Gender Identity Not on file Sexual [...] RN - 06/16/2019 4:17 PM CDT See IG Guit[employer] message regarding yesterday's appointment. Patient requesting to check TSH and antibodies for pt reported possible yonas's. Pended TSH for provider review. documented in this encounter Plan of Treatment Upcoming Encounters Date Type Department Care Team (Late st Contact Info) Description 11/17/2024 2:30 PM LOOM SETTER [facility] [address] [place] [phone] Chintan Denise, ANIMAL SHELTER MANAGER AUTO ROLLER [address] [place], [place] [phone] 12/01/2024 4:00 PM CDT Virtual Visit [facility] [place] [address] [place] [phone] Lisa Zambrano MD [address] [place] 989175 12/03/2024 7:00 AM CDT Virtual Visit [facility] Neu[facility] [address] [phone] Randy Maradiaga, [address] [address] 12/09/2024 12:45 PM CDT Office Visit [facility] [address] [place] [address] [phone] Tete Wang MD [address] [place] [address] 12/09/2024 1:15 PM CDT Office Visit [facility] [address] [place] [address] [phone] Tete Wang MD [address] [place] [address] 12/15/2024 3:00 PM CDT Virtual Visit [facility] [address] [place] [phone] Denise Woodson APRN AUTO ROLLER [address] [place] [address] 01/19/2025 PRE VISIT [facility] [address] [phone] Any Joiner MD [address] [place] [address] 829095 *-*INCOMING RECORDS*-* 01/19/2025 3:00 PM CDT Orders Only [facility] Pulmonary Function Testing [address] [phone] 01/19/2025 4:00 PM CDT Office Visit [facility] [address] [phone] Any Joiner MD [address] [place] [address] 777815 06/01/2025 11:15 AM CDT Appointment [facility] [address] [facility] [address] [place] [phone] Robin Zepeda MD [address] [place] [address] 962585 06/04/2025 11:00 AM CDT Office Visit [address] [phone] Robin Zepeda MD [address] [place] [address] 311205 Usha Simon APRN AUTO ROLLER [address] [place] [address] documented as of this encounter Results * Follicle stimulating hormone (06/22/2019 3:36 PM CDT) FSH 9.5 IU/L 06/23/2019 2:[address] [facility] Comment: FSH Reference Range Female: Follicular 2.5-10.2 Mid-cycle 3.4-33.4 Luteal 1.5-9.1 Postmenopausal 23.0-116.3 Blood specimen (specimen) 06/22/2019 3:36 PM CDT 06/22/2019 3:37 PM CDT Clara Cornell MD LAB - BLOOD ORDERABLES Final Result [facility] [address] [place] [address] * TSH with free T4 reflex FUTURE anytime (06/22/2019 3:36 PM CDT) TSH 3.30 0.40 - 4.00 mU/L 06/23/2019 3:12 PM CDT [facility] Blood specimen (specimen) 06/22/2019 3:36 PM CDT 06/22/2019 3:37 PM CDT Clara Cornell MD LAB - BLOOD ORDERABLES Final Result [facility] [address] [place] [address] documented in this encounter Visit Diagnoses Diagnosis Anti-TPO antibodies present- Primary Other and unspecified nonspecific immunological findings Excessive sweating Generalized hyperhidrosis documented in this encounter Additional Health Concerns Infection Onset Date Last Indicated Resolved Time Rule Out COVID-19 09/13/2024 09/13/2024 09/13/2024 12:31 PM LOOM SETTER Assessment Noted Time PHQ-9 Depression Total Score: 0 06/15/20 19 7:09 PM CDT documented as of this encounter Care Teams Pickle Cutter Relationship Specialty Start Date End Date Yung Madrigal MD RETIRED PCP - Orthopaedics Orthopedics 08/26/12 01/20/24 Winston Villatoro OD [facility] [place] [address] [place] [address] PCP - Ophthalmology Ophthalmology 02/11/13 Clara Cornell MD [facility] [place] [address] [place] [address] PCP - General Internal Medicine 02/07/17 09/20/20 Denise Woodson APRN AUTO ROLLER [address] [place] [address] PCP - General Family Practice 09/21/20 Clara Cornell MD [address] [place] [address] Assigned PCP 01/17/17 07/16/20 Denise Woodson APRN AUTO ROLLER [address] [place] [address] Assigned PCP 07/17/20 Usha Simon APRN AUTO ROLLER [address] [address] Nurse Practitioner Neurological Surgery 01/24/24 Dangelo Salinas MD [address] [address] Neurology 01/27/24 Usha Simon APRN AUTO ROLLER [address] [address] Assigned Neuroscience Provider 02/06/24 03/07/24 Anastasia Stearns, RN Lead Solutions Architect 02/06/24 Germaine Aleman, [facility] Community Health Worker Primary Care - CC 02/18/24 Robin Zepeda MD [address] [place] [address] Assigned Neuroscience Provider 03/08/24 05/07/24 Lisa Zambrano MD [address] [facility] [address] [place] [address] Assigned Heart and Vascular Provider 05/08/24 07/07/24 Raul Hoyos MD [address] [place] [address] Assigned Neuroscience Provider 05/08/24 07/07/24 Joya Lira Jole[facility] [address] [address] Pharmacist Pharmacist 05/25/24 Joya Lira [facility] [address] [place] [address] Assigned MTM Pharmacist 06/08/24 Fabi Coates MD [address] [place] [address] 75 [place] [address] Genetics, Clinical 06/18/24 Robin Zepeda MD [address] [facility] [place]29[place] [address] Assigned Neuroscience Provider 07/08/24 08/07/24 Danna Cardenas PA-C 6405 [place] [address] Assigned Heart and Vascular Provider 07/08/24 Felicita Desai, RN Lead Solutions Architect 07/14/24 07/28/24 Arthur Salas, [facility] [address] [place] [address] [id number] Assigned Behavioral Health Provider 08/08/24 Randy Maradiaga DO [address] [place] [address] Assigned Neuroscience Provider 08/08/24 Tete Wang MD [address] [place], [place] 705684 Genetics, Clinical 10/30/24 documented as of this encounter
--- OUTSIDE RECORDS SUMMARY | 2024-11-08 11:18 | XMS_ITS | Encounter Summary ---
Author Organization [place] Address [address] [place] [address] Care Team Providers Care Greige Goods Marker Name Role Phone Timmy Perez MD Unavailable Unavailable Yung Madrigal MD Unavailable Unavailable Winston Villatoro OD Unavailable [phone] Apple Sykes MD Primary Care Provider Unavailab Westley Vera MD Unavailable [phone] GeorginaAlessandra Gómez APRN RESEARCH PHYSIOLOGIST Primary Car e Provider Serum, Clara Garland MD Primary Care Provider Serum, Clara Garland MD Unavailable [phone] Serum, Clara Garland MD Unavailable [phone] Denise Woodson APRN RESEARCH PHYSIOLOGIST Unavailable [phone] Denise Woodson APRN RESEARCH PHYSIOLOGIST Primary Care Provider Usha Simon APRN RESEARCH PHYSIOLOGIST Unavailable + [phone] Dangelo Salinas MD Unavailable Usha Simon APRN RESEARCH PHYSIOLOGIST Unavailable + [phone] Anastasia Stearns RN Unavailable [phone] Germaine Aleman Unavailable [phone] Robin Zepeda MD Unavailable [phone] Lisa Zambrano MD Unavailable + [phone] Raul Hoyos MD Unavailable [phone] Joya Lira [facility] Unavailable [phone] SorayaJoya [facility] Unavailable [phone] Fabi Coates MD Unavailable [phone] DuaneRobin MD Unavailable [phone] Danna Cardenas PA-C Unavailable [phone] Felicita Desai RN Unavailable Unavailab gabino Arthur Salas [employer] Unavailable [phone] Randy Maradiaga DO Unavailable + Tete Wang MD Unavailable [phone] Encounter Details Date Type Department Care Team (Late st Contact Info) Description 05/06/2013 MyC Medical Advice 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 documented as of this encounter Plan of Treatment Upcoming Encounters Date Type Department Care Team (Late st Contact Info) Description 11/17/2024 2:30 PM AIR CARRIER OPERATIONS INSPECTOR Virtual Visit [facility] [address] [place] [address] Denise Woodson APRN [facility] [address] [place] [address] 12/01/2024 4:00 PM CDT Virtual Visit [facility] [place] [address] [place] [address] Lisa Zambrano MD [address] [place] [address] 12/03/2024 7:00 AM CDT Virtual Visit [facility] Neurology [address] 3rd [place] [phone] Randy Maradiaga, [address] [place] [address] 883195 12/09/2024 12:45 PM CDT Office Visit [facility] [address] [place] [address] [phone] Tete Wang MD [address] [place] [address] 879704 12/09/2024 1:15 PM CDT Office Visit [facility] [address] [place] [address] [phone] Tete Wang MD [address] [place] [address] 869054 12/15/2024 3:00 PM CDT Virtual Visit [facility] [address] [place] [phone] Denise Woodson APRN [facility] [address] [place] [address] 1337668 01/19/2025 PRE VISIT [facility] [address] [phone] Any Joiner MD [address] [place] [address] *-*INCOMING RECORDS*-* 01/19/2025 3:00 PM CDT Orders Only [facility] Pulmonary Function Testing [address] [phone] 01/19/2025 4:00 PM CDT Office Visit [facility] [address] [phone] Any Joiner MD [address] [place] [address] 186725 06/01/2025 11:15 AM CDT Appointment [facility] [address] [address] [place] [phone] Robin Zepeda MD [address] [place] [address] 06/04/2025 11:00 AM CDT Office Visit [facility] Neurosurgery [address] [phone] Robin Zepeda MD [address] [place] [address] Usha Simon APRN [address] [address] documented as of this encounter Visit Diagnoses Not on filedocumented in this encounter Additional Health Concerns Infection Onset Date Last Indicated Resolved Time Rule Out COVID-19 09/13/2024 09/13/2024 09/13/2024 12:31 PM AIR CARRIER OPERATIONS INSPECTOR documented as of this encounter Care Teams Greige Goods Marker Relationship Specialty Start Date End Date Timmy Perez MD PCP - Obstetrics/Gynecology 03/02/08 08/07/15 Yung Madrigal MD RETIRED PCP - Orthopaedics Orthopedics 08/26/12 01/20/24 Winston Villatoro OD [facility] [place] [address] [place], [place] [phone] PCP - Ophthalmology Ophthalmology 02/11/13 Apple Sykes MD [facility] [place] [address] [place] [address] PCP - General Family Practice 05/04/13 10/25/16 Westley Bates MD XXX RETIRED XXX [address] [place] [address] PCP - ENT Otolaryngology 05/14/13 07/28/18 GeorginaAlessandra Gómez APRN RESEARCH PHYSIOLOGIST [address] [facility] [place] [address] PCP - General Nurse Practitioner 10/26/16 02/06/17 Clara Cornell MD [address] [facility] [place] [address] PCP - General Internal Medicine 02/07/17 09/20/20 Clara Cornell MD 8675 [place] [address] PCP - Assigned PCP 01/17/17 11/18/18 Denise Woodson APRN RESEARCH PHYSIOLOGIST [address] [place] [address] PCP - General Family Practice 09/21/20 Clara Cornell MD [address]75 [place] [address] Assigned PCP 01/17/17 07/16/20 Denise Woodson APRN RESEARCH PHYSIOLOGIST [address] [place] [address] Assigned PCP 07/17/20 Usha Simon APRN RESEARCH PHYSIOLOGIST [address] 021265 Nurse Practitioner Neurological Surgery 01/24/24 Dangelo Salinas MD [address] [place] [address] Neurology 01/27/24 Usha Simon APRN RESEARCH PHYSIOLOGIST [address] 181605 Assigned Neuroscience Provider 02/06/24 03/07/24 Anastasia Stearns, RN Lead Sharepoint Consultant 02/06/24 Germaine Aleman, W Community Health Worker Primary Care - CC 02/18/24 Robin Zepeda MD [address] 099655 Assigned Neuroscience Provider 03/08/24 05/07/24 Lisa Zambrano MD [address] [place] [address] Assigned Heart and Vascular Provider 05/08/24 07/07/24 Raul Hoyos MD 909 [facility] [place] [address] Assigned Neuroscience Provider 05/08/24 07/07/24 Joya Lira [facility] [address] [place] [address] Pharmacist Pharmacist 05/25/24 Joya Lira [facility] [address] [place] [address] Assigned MTM Pharmacist 06/08/24 Fabi Coates MD [address] [place] [address] 75 [place] [address] Genetics, Clinical 06/18/24 Robin Zepeda MD [address] [place], [place] [address] [address] Assigned Neuroscience Provider 07/08/24 08/07/24 Danna Cardenas PA-C 6[address] [place] [address] Assigned Heart and Vascular Provider 07/08/24 Felicita Desai, RN Lead Sharepoint Consultant 07/14/24 07/28/24 Arthur Salas [facility] [address] [address] Assigned Behavioral Health Provider 08/08/24 Randy Maradiaga DO [address] [place] [address] 966965 Assigned Neuroscience Provider 08/08/24 Tete Wang MD [address] [place] [address] Genetics, Clinical 10/30/24 documented as of this encounter
--- OUTSIDE RECORDS SUMMARY | 2024-11-08 11:18 | XMS_ITS | Encounter Summary ---
Author Organization [place] Address [address] [place] [address] Care Team Providers Care Toll Booth Operator Name Role Phone Timmy Perez MD Unavailable Unavailable Yung Madrigal MD Unavailable Unavailable Winston Villatoro OD Unavailable [phone] Apple Sykes MD Primary Care Provider Unavailab Westley Vera MD Unavailable [phone] GeorginaAlessandra Gómez APRN INSPECTOR PACKER Primary Car e Provider Serum, Clara Garland MD Primary Care Provider Serum, Clara Garland MD Unavailable [phone] Serum, Clara Garland MD Unavailable [phone] Denise Woodson APRN INSPECTOR PACKER Unavailable [phone] Denise Woodson APRN INSPECTOR PACKER Primary Care Provider Usha Simon APRN INSPECTOR PACKER Unavailable + [phone] Dangelo Salinas MD Unavailable Usha Simon APRN INSPECTOR PACKER Unavailable + [phone] Anastasia Stearns RN Unavailable +[phone] Germaine Aleman Unavailable +[phone] Robin Zepeda MD Unavailable [phone] Lisa Zambrano MD Unavailable + [phone] Raul Hoyos MD Unavailable [phone] SorayaJoya [facility] Unavailable [phone] SorayaJoya [facility] Unavailable [phone] Fabi Coates MD Unavailable [phone] DuaneRobin MD Unavailable [phone] Danna Cardenas PA-C Unavailable [phone] Felicita Desai RN Unavailable Unavailab gabino Arthur Salas [facility] Unavailable [phone] Randy Maradiaga DO Unavailable + Tete Wang MD Unavailable [phone] Encounter Details Date Type Department Care Team (Late st Contact Info) Description 05/26/2013 MyC Medical Advice [facility] [place] Orthopedics [address] [place] [address] Yung Madrigal MD RETIRED Social History Tobacco Use Types Packs/Day Years Used Date Smoking Tobacco: Never Smokeless Tobacco: Never Alcohol Use Standard Drinks/Week Comments Yes 0 (1 standard drink = 0.6 oz pur e alcohol) minimal Comments No Sex and Gender Information Value Date Recorded Sex Assigned at Not on file Legal Sex Female 4:05 AM CLOTH WINDING SUPERVISOR Gender Identity Not on file Sexual Orientation Not on file 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 [place] [phone] Lisa Zambrano MD [address] [place] [address] 12/03/2024 7:00 AM CDT Virtual Visit [facility] Neurology Clinic [address] 3rd [place] [address] Randy Maradiaga, [address] 184805 12/09/2024 12:45 PM CDT Office Visit [facility] [address] [place] [address] [phone] Tete Wang MD [address] [place] [address] 12/09/2024 1:15 PM CDT Office Visit [facility] Clinic [address] [place] [address] [phone] Tete Wang MD [address] [place] [address] 465024 12/15/2024 3:00 PM CDT Virtual Visit [facility] [address] [place] [phone] Denise Woodson APRN [facility] [address] [place], [place] 4273468 01/19/2025 PRE VISIT [facility] [address] [phone] Any Joiner MD [address] [address] *-*INCOMING RECORDS*-* 01/19/2025 3:00 PM CDT Orders Only [facility] Pulmonary Function Testing [address] [place] [phone] 01/19/2025 4:00 PM CDT Office Visit [facility] [address] [phone] Any Joiner MD [address] [place] [address] 06/01/2025 11:15 AM CDT Appointment [facility] [address] [place] [address] [place] [phone] Robin Zepeda MD [address] [place] [address] 06/04/2025 11:00 AM CDT Office Visit [facility] Neurosurgery [address] [phone] Robin Zepeda MD [address] [place] [address] 390615 Usha Simon APRN [address] 686205 documented as of this encounter Visit Diagnoses Not on filedocumented in this encounter Additional Health Concerns Infection Onset Date Last Indicated Resolved Time Rule Out COVID-19 09/13/2024 09/13/2024 09/13/2024 12:31 PM CLOTH WINDING SUPERVISOR documented as of this encounter Care Teams Toll Booth Operator Relationship Specialty Start Date End Date Timmy Perez MD PCP - Obstetrics/Gynecology 03/02/08 08/07/15 Yung Madrigal MD RETIRED PCP - Orthopaedics Orthopedics 08/26/12 01/20/24 Winston Villatoro OD [facility] [place] [address] [place] [address] PCP - Ophthalmology Ophthalmology 02/11/13 Apple Sykes MD [facility] [place] [address] [place] [address] PCP - General Family Practice 05/04/13 10/25/16 Westley Bates MD XXX RETIRED XXX [address] [place] [address] PCP - ENT Otolaryngology 05/14/13 07/28/18 [facility] INSPECTOR PACKER [address] [facility] [place] [id number] PCP - General Nurse Practitioner 10/26/16 02/06/17 Clara Cornell MD [address] [facility] [place] [address] PCP - General Internal Medicine 02/07/17 09/20/20 Clara Cornell MD 8675 [place] [address] PCP - Assigned PCP 01/17/17 11/18/18 Denise Woodson APRN INSPECTOR PACKER [address] [place] [address] PCP - General Family Practice 09/21/20 Clara Cornell MD 8675 [place] [address] Assigned PCP 01/17/17 07/16/20 Denise Woodson APRN INSPECTOR PACKER [address] [facility] [place] [address] Assigned PCP 07/17/20 Usha Simon APRN INSPECTOR PACKER [address] 649145 Nurse Practitioner Neurological Surgery 01/24/24 Dangelo Salinas MD [address] [place], [place] [phone] Neurology 01/27/24 Usha Simon APRN INSPECTOR PACKER [address] 711725 Assigned Neuroscience Provider 02/06/24 03/07/24 Anastasia Stearns, RN Lead Dry Goods Inspector 02/06/24 Germaine Aleman, W Community Health Worker Primary Care - CC 02/18/24 Robin Zepeda MD [address] 107855 Assigned Neuroscience Provider 03/08/24 05/07/24 Lisa Zambrano MD [address] [place] 057615 Assigned Heart and Vascular Provider 05/08/24 07/07/24 Raul Hoyos MD 909 [facility] [place], [place] 456385 Assigned Neuroscience Provider 05/08/24 07/07/24 Joya Lira [facility] [address] [place] [address] Pharmacist Pharmacist 05/25/24 Joya Lira [facility] [address] [place] [address] Assigned MTM Pharmacist 06/08/24 Fabi Coates MD [address] [place] [address] 75 [place], [place] 582635 Genetics, Clinical 06/18/24 Robin Zepeda MD [address] [place] [address], [place] 267985 Assigned Neuroscience Provider 07/08/24 08/07/24 Danna Cardenas PA-C [address] [place] [address] Assigned Heart and Vascular Provider 07/08/24 Felicita Desai RN Lead Dry Goods Inspector 07/14/24 07/28/24 Arthur Salas [facility] [address] [address] Assigned Behavioral Health Provider 08/08/24 Randy Maradiaga DO [address] [place] [address] Assigned Neuroscience Provider 08/08/24 Tete Wang MD [address] [place] [address] Genetics, Clinical 10/30/24 documented as of this encounter
--- OUTSIDE RECORDS SUMMARY | 2024-11-08 11:18 | XMS_ITS | Encounter Summary ---
Author Organization [place] Address [address] [place] [address] Care Team Providers Care Surveillance Manager Name Role Phone Winston Villatoro OD Unavailable [phone] Denise Woodson APRN AUDIO PRODUCTION MANAGER Unavailable [phone] Denise Woodson APRN AUDIO PRODUCTION MANAGER Primary Care Provider Usha Simon APRN [facility] Unavailable + [phone] Dangelo Salinas MD Unavailable Anastasia Stearns RN Unavailable [phone] Germaine Aleman [place] Unavailable [phone] Joya Lira [facility] Unavailable [phone] Joya Lira [facility] Unavailable [phone] Fabi Coates MD Unavailable [phone] Danna CardenasC Unavailable [phone] Arthur Salas ROLL PLUGGER MACHINE OPERATOR Unavailable [phone] Randy Maradiaga DO Unavailable + Encounter Details [...] Never 09/16/2024 How often do you attend samaritan or holiness serv ices? Never 09/16/2024 Do [...] Recorded PHQ-2 Score 0 09/18/2024 [facility] Occupat ional Health - Occupational Stress [...] file Legal Sex Female 4:05 AM HAND SPRING FORMER Gender Identity Not on file Sexual Orientation [...] st Contact Info) Description 11/17/2024 2:30 PM HAND SPRING FORMER Virtual Visit [facility] [address] [facility] [place] [address] Denise Woodson APRN AUDIO PRODUCTION MANAGER [address] [place] [address] 12/01/2024 4:00 PM CDT Virtual Visit [facility] Vascular Clinic Kate [address] [address] Lisa Zambrano MD [address] [facility] [address] [place] [address] 12/03/2024 7:00 AM CDT Virtual Visit [facility] Neurology [address] 3rd [place] [phone] Randy Maradiaga DO [address] [place] [address] 189355 12/09/2024 12:45 PM CDT Office Visit [facility] Pediatric [facility]ty Clinic [address] [place] [address] [phone] Tete Wang MD [address] [place] [address] [phone] 12/09/2024 1:15 PM CDT Office Visit [facility]ty [facility] [address] [place] [address] [phone] Tete Wang MD [address] [place] [address] 979644 12/15/2024 3:00 PM CDT Virtual Visit [facility] [address] [place] [address] Denise Woodson APRN [facility] [address] [place], [place] [id number] 01/19/2025 PRE VISIT [facility] for Lung Science and Health [address] [phone] Any Joiner MD [address] 770[address] *-*INCOMING RECORDS*-* 01/19/2025 3:[address] PM [address]T Orders Only [facility] Pulmonary Function Testing [address] [phone] 01/19/2025 4:00 PM CDT Office Visit [facility] for [facility] Clinic [address] [phone] Any Joiner MD 420 [facility] 276 [place], [place] 808945 06/01/2025 11:15 AM CDT Appointment [facility] Imaging [address] [place] [phone] Robin Zepeda MD [address] [place] [address] 270765 06/04/2025 11:00 AM CDT Office Visit [facility] Neurosurgery Clinic [address] [phone] Robin Zepeda MD [address] [place] [address] [phone] Usha Simon APRN [address] 044315 documented as of this encounter Visit Diagnoses Not on filedocumented in this encounter Additional Health Concerns Assessment Noted Time PHQ-9 Depression Total Score: 0 09/18/19 25 12:46 PM HAND SPRING FORMER documented as of this encounter Care Teams Surveillance Manager Relationship Specialty Start Date End Date Winston Villatoro OD [facility] [place] [address] [place] [address] PCP - Ophthalmology Ophthalmology 02/11/13 Denise Woodson APRN AUDIO PRODUCTION MANAGER [address] [place] [address] PCP - General Family Practice 09/21/20 Denise Woodson APRN AUDIO PRODUCTION MANAGER [address] [place] [address] Assigned PCP 07/17/20 Usha Simon APRN AUDIO PRODUCTION MANAGER 909 [facility], [place] 305[address] Nurse Practitioner Neurological Surgery 01/24/24 Dangelo Salinas MD [address] [place], [place] [phone] Neurology 01/27/24 Anastasia Stearns, RN Lead Parts Counter Representative 02/06/24 Germaine [place], W Community Health Worker Primary Care - CC 02/18/24 Joya Lira [facility] [address] [place] [address] Pharmacist Pharmacist 05/25/24 Joya Lira [facility] [address] [place] [address] Assigned MTM Pharmacist 06/08/24 Fabi Coates MD 420 [facility] 75 [place] [address] Genetics, Clinical 06/18/24 Danna Cardenas, PANilesC [address] [place] [address] Assigned Heart and Vascular Provider 07/08/24 Arthur Salas LICSW [address] [address] Assigned Behavioral Health Provider 08/08/24 Randy Maradiaga DO [address] [place] [address] Assigned Neuroscience Provider 08/08/24 documented as of this encounter
--- OUTSIDE RECORDS SUMMARY | 2024-11-08 11:18 | XMS_ITS | Encounter Summary ---
Author Organization [place] Address [address] [place] [address] Care Team Providers Care Cyanide Case Hardener Name Role Phone Yung Madrigal MD Unavailable Unavailable Winston Villatoro OD Unavailable [phone] Serum, Clara Garland MD Primary Care Provider Serum, Clara Garland MD Unavailable [phone] Denise Woodson APRN DEPENDENCY CASE MANAGER Unavailable [phone] Denise Woodson CHEF PASSENGER VESSEL DEPENDENCY CASE MANAGER Primary Care Provider Usha Simon CHEF PASSENGER VESSEL DEPENDENCY CASE MANAGER Unavailable Dangelo Salinas MD Unavailable Usha Simon CHEF PASSENGER VESSEL DEPENDENCY CASE MANAGER Unavailable Anastasia Stearns RN Unavailable [phone] Germaine Aleman CHW Unavailable [phone] Robin Zepeda MD Unavailable Lisa Zambrano MD Unavailable Raul Hoyos MD Unavailable Joya Lira [facility] Unavailable [phone] Joya Lira [facility] Unavailable [phone] Fabi Coates MD Unavailable [phone] Robin Catalan MD Unavailable Danna Cardenas PA-C Unavailable Felicita Desai RN Unavailable Unavailab Arthur Rios [facility] Unavailable AshwiniRandy Yobany MARTIN Unavailable + Tete Wang MD Unavailable [phone] Encounter Details Date Type Department Care Team (Late st Contact Info) Description 06/16/2019 MyC Medical Advice [facility] [address] [facility] [address] [place] [address] Serum, Clara Garland MD 8616 [place] [address] Social History Tobacco Use Types Packs/Day Years Used Date Smoking Tobacco: Never Smokeless Tobacco: Never Alcohol Use Standard Drinks/Week Comments Yes 0 (1 standard drink = 0.6 oz pur e alcohol) minimal PHQ-2 Answer Date Recorded PHQ-2 Score 0 09/23/2018 Comments No Sex and Gender Information Value Date Recorded Sex Assigned at Not on file Legal Sex Female 4:05 AM SEAFOOD CLERK Gender Identity Not on file Sexual [...] st Contact Info) Description 11/17/2024 2:30 PM SEAFOOD CLERK Virtual Visit [facility] [address] [place] [address] Denise Woodson APRN [facility] [address] [place] [address] 12/01/2024 4:00 PM CDT Virtual Visit [facility] Vascular Clinic Kate [address] [place] [phone] Lisa Zambrano MD 6405 [facility] [address] [place], [place] 227105 12/03/2024 7:00 AM CDT Virtual Visit [facility] Neurology [address] 3rd [place] [phone] Randy Maradiaga [address] [phone] 12/09/2024 12:45 PM CDT Office Visit [facility] Pediatric Specialty Clinic [address] [place] [address] [phone] Tete Wang MD [address] [place] [address] [phone] 12/09/2024 1:15 PM CDT Office Visit [facility]ty Clinic [address] [place] [address] [phone] Tete Wang MD [address] [place] [address] 813834 12/15/2024 3:00 PM CDT Virtual Visit [facility] [address] [place] [address] Denise Woodson APRN [facility] [address] [place], [place] [phone] 01/19/2025 PRE VISIT [facility] for Lung Science and Health [address] [phone] Any Joiner MD [address] [place] [address] [phone] *-*INCOMING RECORDS*-* 01/19/2025 3:00 PM CDT Orders Only [facility] Pulmonary Function Testing [address] 3rd [place] [phone] 01/19/2025 4:00 PM CDT Office Visit [facility] for [facility] Health Clinic [address] [phone] Any Joiner MD 420 [facility] 276 [place], [place] [address]27[address] 06/01/2025 11:15 AM CDT Appointment [facility] Imaging [address] [place] [place] [phone] Robin Zepeda MD [address] [place] [address] 327165 06/04/2025 11:00 AM CDT Office Visit [facility] Neurosurgery Clinic [address] [phone] Robin Zepeda MD [address] [place] [address] 340925 Usha Simon APRN [address] 034455 documented as of this encounter Visit Diagnoses Not on filedocumented in this encounter Additional Health Concerns Infection Onset Date Last Indicated Resolved Time Rule Out COVID-19 09/13/2024 09/13/2024 09/13/2024 12:31 PM SEAFOOD CLERK Assessment Noted Time PHQ-9 Depression Total Score: 0 06/15/20 19 7:09 PM CDT documented as of this encounter Care Teams Cyanide Case Hardener Relationship Specialty Start Date End Date Yung Madrigal MD RETIRED PCP - Orthopaedics Orthopedics 08/26/12 01/20/[address] [facility] [place] [address] [place] [address] PCP - Ophthalmology Ophthalmology 02/11/13 Clara Cornell MD [facility] [place] [address] [place] [address] PCP - General Internal Medicine 02/07/17 09/20/20 Denise Woodson APRN DEPENDENCY CASE MANAGER [address] [place] [address] PCP - General Family Practice 09/21/20 Clara Cornell MD [address]75 [place] [address] Assigned PCP 01/17/17 07/16/20 Denise Woodson APRN DEPENDENCY CASE MANAGER [address] [place] [address] Assigned PCP 07/17/20 Usha Simon APRN DEPENDENCY CASE MANAGER [address] [place] [address] 153415 Nurse Practitioner Neurological Surgery 01/24/24 Dangelo Salinas MD [address] [place] [address] [phone] Neurology 01/27/24 Usha Simon APRN DEPENDENCY CASE MANAGER [address] 299105 Assigned Neuroscience Provider 02/06/24 03/07/24 Anastasia Stearns, RN Lead Almond Paste Mixer 02/06/24 Germaine [place], W Community Health Worker Primary Care - CC 02/18/24 Robin Zepeda MD [address] [place] [address] Assigned Neuroscience Provider 03/08/24 05/07/24 Lisa Zambrano MD 6405 [facility] [address] [place] [address] Assigned Heart and Vascular Provider 05/08/24 07/07/24 Raul Hoyos MD [address] [place] [address] Assigned Neuroscience Provider 05/08/24 07/07/24 Joya Lira [place] [address] [place] [address] Pharmacist Pharmacist 05/25/24 Joya Lira [facility] [address] [place] [address] Assigned MTM Pharmacist 06/08/24 Fabi Coates MD [address] [place] [address] 75 [place] [address] Genetics, Clinical 06/18/24 Robin Zepeda MD [address] [place] [address], [place] [address] Assigned Neuroscience Provider 07/08/24 08/07/24 Danna Cardenas PA-C 6405 [place] [address] Assigned Heart and Vascular Provider 07/08/24 Felicita Desai, RN Lead Almond Paste Mixer 07/14/24 07/28/24 Arthur Salas, [facility] [address] [place] [address] Assigned Behavioral Health Provider 08/08/24 Randy Maradiaga DO 909 [place] [address] Assigned Neuroscience Provider 08/08/24 Tete Wang MD 2450 [place], [place] 224234 Genetics, Clinical 10/30/24 documented as of this encounter
--- OUTSIDE RECORDS SUMMARY | 2024-11-08 11:18 | XMS_ITS | Encounter Summary ---
Author Organization [place] Address [address] [place] [address] Care Team Providers Care Icing Coater Name Role Phone Yung Madrigal MD Unavailable Unavailable Winston Villatoro OD Unavailable [phone] Denise Woodson APRN INTEGRATED PEST MANAGEMENT TECHNICIAN Unavailable [phone] Denise Woodson APRN INTEGRATED PEST MANAGEMENT TECHNICIAN Primary Care Provider Usha Simon APRN INTEGRATED PEST MANAGEMENT TECHNICIAN Unavailable [phone] Dangelo Salinas MD Unavailable Usha Simon APRN INTEGRATED PEST MANAGEMENT TECHNICIAN Unavailable Anastasia Stearns RN Unavailable [phone] Germaine [place] CHW Unavailable Robin Zepeda MD Unavailable Lisa Zambrano MD Unavailable Raul Hoyos MD Unavailable [phone] Joya Lira [facility] Unavailable Joya Lira [place] Unavailable Fabi Coates MD Unavailable [phone] Robin Zepeda MD Unavailable [phone] Danna Cardenas PA-C Unavailable Felicita Desai RN Unavailable Unavailab Arthur Rios Unavailable [phone] Randy Maradiaga DO Unavailable + Tete Wang MD Unavailable [phone] Encounter Details Date Type Department Care Team (Late st Contact Info) Description 12/30/2020 MyC Medical Advice [facility] [address] [place] [address] Jessica Phipps, REHABILITATION THERAPY AIDE Social History Tobacco Use Types Packs/Day Years Used Date Smoking Tobacco: Never Smokeless Tobacco: Never Alcohol Use Standard Drinks/Week Comments Yes 0 (1 standard drink = 0.6 oz pur e alcohol) minimal PHQ-2 Answer Date Recorded PHQ-2 Score 2 07/13/2020 Comments No Sex and Gender Information Value Date Recorded Sex Assigned at Not on file Legal Sex Female 4:05 AM PROCESS DEVELOPMENT MANAGER Gender Identity Not on file Sexual Orientation Not on file 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 [place] [phone] Lisa Zambrano MD [address] [place] [address] 12/03/2024 7:00 AM CDT Virtual Visit [facility] Neurology [address] [phone] Randy Maradiaga DO [address] [place] [address] 056885 12/09/2024 12:45 PM CDT Office Visit [facility] [address] [place] [address] [phone] Tete Wang MD [address] [place] [address] 452824 12/09/2024 1:15 PM CDT Office Visit [facility] [address] [place] [address] [phone] Tete Wang MD [address] [place] [address] [phone] 12/15/2024 3:00 PM CDT Virtual Visit [facility] [address] [place] [phone] Denise Woodson APRN [facility] [address] [place] [address] [phone] 01/19/2025 PRE VISIT [facility] for Lung Science and Health Clinic [address] [phone] Any Joiner MD 420 [facility] 276 [place], [place] [phone] *-*INCOMING RECORDS*-* 01/19/2025 3:00 PM CDT Orders Only [facility] Pulmonary Function Testing [place] 909 [facility] 3rd [place] [phone] 01/19/2025 4:00 PM CDT Office Visit [facility] for [facility] Health Clinic [place] [address] [place] [address] [phone] Any Joiner MD 420 [facility] 276 [place], [place] 539885 06/01/2025 11:15 AM CDT Appointment [facility] Imaging [address] [place] [address] [place] [phone] Robin Zepeda MD [address] [place] [address] 992495 06/04/2025 11:00 AM CDT Office Visit [facility] Neurosurgery Clinic [place] [address] [place] [address] [phone] Robin Zepeda MD [address] [place] [address] 256675 Usha Simon APRN INTEGRATED PEST MANAGEMENT TECHNICIAN [address] [place] [address] 535775 documented as of this encounter Visit Diagnoses Not on filedocumented in this encounter Additional Health Concerns Infection Onset Date Last Indicated Resolved Time Rule Out COVID-19 09/13/2024 09/13/2024 09/13/2024 12:31 PM PROCESS DEVELOPMENT MANAGER Assessment Noted Time PHQ-9 Depression Total Score: 0 06/15/20 19 7:09 PM CDT documented as of this encounter Care Teams Icing Coater Relationship Specialty Start Date End Date Yung Madrigal MD RETIRED PCP - Orthopaedics Orthopedics 08/26/12 01/20/24 Winston Villatoro, OD [facility] [place] [address] [facility] [address] [place], [place] [id number] PCP - Ophthalmology Ophthalmology 02/11/13 Denise Woodson APRN INTEGRATED PEST MANAGEMENT TECHNICIAN [address] [place] [address] PCP - General Family Practice 09/21/20 Denise Woodson APRN INTEGRATED PEST MANAGEMENT TECHNICIAN [address] [place] [address] Assigned PCP 07/17/20 Usha Simon APRN INTEGRATED PEST MANAGEMENT TECHNICIAN [address] [place] [address] 673225 Nurse Practitioner Neurological Surgery 01/24/24 Dangelo Salinas MD [address] [phone] Neurology 01/27/24 Usha Simon APRN INTEGRATED PEST MANAGEMENT TECHNICIAN [address] 391485 Assigned Neuroscience Provider 02/06/24 03/07/24 Anastasia Stearns, RN Lead Sanitation Tank Washer 02/06/24 Germaine [place], CHW Community Health Worker Primary Care - CC 02/18/24 Robin Zepeda MD [address] 452915 Assigned Neuroscience Provider 03/08/24 05/07/24 Lisa Zambrano MD 6405 [facility] [address] [place] [address] Assigned Heart and Vascular Provider 05/08/24 07/07/24 Raul Hoyos MD [address] [address] Assigned Neuroscience Provider 05/08/24 07/07/24 Joya Lira [facility] [address] [facility] [place] [address] Pharmacist Pharmacist 05/25/24 Joya Lira [facility] [address] [facility] [place] [address] Assigned MTM Pharmacist 06/08/24 Fabi Coates MD [address] [place] [address] 75 [place] [address] Genetics, Clinical 06/18/24 Robin Zepeda MD [address] [address] Assigned Neuroscience Provider 07/08/24 08/07/24 Danna Cardenas PA-C 6405 [place] [address] Assigned Heart and Vascular Provider 07/08/24 Felicita Desai, GEMA Lead Sanitation Tank Washer 07/14/24 07/28/24 Arthur Salas [facility] [address] [place] [address] Assigned Behavioral Health Provider 08/08/24 Randy Maradiaga DO 909 [place] [address] Assigned Neuroscience Provider 08/08/24 Tete Wang MD [facility] [place] [address] Genetics, Clinical 10/30/24 documented as of this encounter
--- OUTSIDE RECORDS SUMMARY | 2024-11-08 11:18 | XMS_ITS | Encounter Summary ---
Author Organization [facility] Address [address] [place] [address] Care Team Providers Care Bobtailer Name Role Phone Yung Madrigal MD Unavailable Unavailable Winston Villatoro OD Unavailable [phone] Denise Woodson APRN HAND SHAPER Unavailable [phone] Denise Woodson APRN HAND SHAPER Primary Care Provider Usha Simon APRN HAND SHAPER Unavailable [phone] Dangelo Salinas MD Unavailable Usha Simon APRN HAND SHAPER Unavailable Anastasia Stearns RN Unavailable [phone] Germaine Aleman CHW Unavailable Robin Zepeda MD Unavailable [phone] Lisa Zambrano MD Unavailable Raul Hoyos MD Unavailable Joya Lira [facility] Unavailable Joya Lira Joleen Unavailable Fabi Coates MD Unavailable [phone] Robin Zepeda MD Unavailable Danna Cardenas PA-C Unavailable Felicita Desai RN Unavailable Unavailab Arthur Rios Unavailable [phone] Randy Maradiaga DO Unavailable + Tete Wang MD Unavailable [phone] Encounter Details Date Type Department Care Team (Late Contact Info) Description 01/10/2023 MyC Medical Advice [facility] [address] [place] [phone] Arianna Lo Social History Tobacco Use Types Packs/Day Years Used Date Smoking Tobacco: Never Smokeless Tobacco: Never Alcohol Use Standard Drinks/Week Comments Not Currently 0 (1 standard drink = 0.6 oz pur e alcohol) minimal PHQ-2 Answer Date Recorded PHQ-2 Score 0 07/27/2021 Comments No Sex and Gender Information Value Date Recorded Sex Assigned at Not on file Legal Sex Female 4:05 AM CIRCULAR RIPSAW OPERATOR Gender Identity Not on file Sexual Orientation Not on file 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 Not on file Not on file Not on file Not on file Not on file documented as of this encounter Plan of Treatment Upcoming Encounters Date Type Department Care Team (Late Contact Info) Description 11/17/2024 2:30 PM CIRCULAR RIPSAW OPERATOR Virtual Visit [facility] [address] [place] [phone] Denise Woodson APRN [facility] [address] [place], [place] 4222468 12/01/2024 4:00 PM CDT Virtual Visit [facility] Vascular Clinic Kate [address] [place] [phone] Lisa Zambrano MD [address] [place] [address] 12/03/2024 7:00 AM CDT Virtual Visit [facility] Neurology Clinic [address] [phone] Randy Maradiaga DO [address] [place] [address] 415025 12/09/2024 12:45 PM CDT Office Visit [facility] Pediatric Specialty Clinic [address] [place] [address] [phone] Tete Wang MD [address] [place] [address] 840424 12/09/2024 1:15 PM CDT Office Visit [facility] Pediatric Specialty Clinic [address] [place] [address] [phone] Tete Wang MD [address] [place] [address] 126254 12/15/2024 3:00 PM CDT Virtual Visit [facility] [address] [place] [address] Denise Woodson APRN [facility] [address] [place], [place] 9154868 01/19/2025 PRE VISIT [facility] [address] [phone] Any Joiner MD [address] [place] [address] *-*INCOMING RECORDS*-* 01/19/2025 3:00 PM CDT Orders Only [facility] Pulmonary Function Testing [address] [place] [address] 01/19/2025 4:00 PM CDT Office Visit [facility] Clinic [place] [address] [place] [phone] Any Joiner MD 420 [facility] 276 [place] [address] 06/01/2025 11:15 AM CDT Appointment [facility] Imaging [address] [place] [phone] Robin Zepeda MD [address] [place] [address] 657935 06/04/2025 11:00 AM CDT Office Visit [facility] Neurosurgery Clinic [address] 3rd [place] [phone] Robin Zepeda MD [address] [place] [address] 521225 Usha Simon APRN [address] [id number] documented as of this encounter Visit Diagnoses Not on filedocumented in this encounter Additional Health Concerns Infection Onset Date Last Indicated Resolved Time Rule Out COVID-19 09/13/2024 09/13/2024 09/13/2024 12:31 PM CIRCULAR RIPSAW OPERATOR Assessment Noted Time PHQ-9 Depression Total Score: 0 06/23/20 21 4:11 PM CDT documented as of this encounter Care Teams Bobtailer Relationship Specialty Start Date End Date Yung Madrigal MD RETIRED PCP - Orthopaedics Orthopedics 08/26/12 01/20/24 Winston Villatoro OD [facility] [place] [address] [place] [address] [address] [place] [address] PCP - Ophthalmology Ophthalmology 02/11/13 Denise Woodson APRN HAND SHAPER [address] [place] [address] PCP - General Family Practice 09/21/20 Denise Woodson APRN HAND SHAPER [address] [place] [address] Assigned PCP 07/17/20 Usha Simon APRN HAND SHAPER [address] 253485 Nurse Practitioner Neurological Surgery 01/24/24 Dangelo Salinas MD [address] [facility] [address] [place], [place] [phone] Neurology 01/27/24 Usha Simon APRN HAND SHAPER [address] [id number] Assigned Neuroscience Provider 02/06/24 03/07/24 Anastasia Stearns, RN Lead Guidance Counselor 02/06/24 Germaine Aleman, W Community Health Worker Primary Care - CC 02/18/24 Robin Zepeda MD [address] [phone] Assigned Neuroscience Provider 03/08/24 05/07/24 Lisa Zambrano MD [address] [place] [address] Assigned Heart and Vascular Provider 05/08/24 07/07/24 Raul Hoyos MD 909 [facility]121[address]J [place] [address] Assigned Neuroscience Provider 05/08/24 07/07/24 Joya Lira [facility] [address] [place] [address] Pharmacist Pharmacist 05/25/24 Joya Lira Joleen [address] [place] [address] Assigned MTM Pharmacist 06/08/24 Fabi Coates MD [address] [place] [address] 75 [place] [address] Genetics, Clinical 06/18/24 Robin Zepeda MD [address] [place] [id number] [place] [address] Assigned Neuroscience Provider 07/08/24 08/07/24 Danna Cardenas PA-C 6405 [place] [address] Assigned Heart and Vascular Provider 07/08/24 Felicita Desai, RN Lead Guidance Counselor 07/14/24 07/28/24 Arthur Salas [facility] [address] [place] [address] Assigned Behavioral Health Provider 08/08/24 Randy Maradiaga DO 909 [place], [place] 150365 Assigned Neuroscience Provider 08/08/24 Tete Wang MD 2450 [place], [place] 035394 Genetics, Clinical 10/30/24 documented as of this encounter
--- OUTSIDE RECORDS SUMMARY | 2024-11-08 11:18 | XMS_ITS | Encounter Summary ---
Author Organization [facility] Address [address] [place] [address] Care Team Providers Care Support Manager Name Role Phone Yung Madrigal MD Unavailable Unavailable Winston Villatoro OD Unavailable [phone] Denise Woodson APRN REFRACTORY REPAIRER Unavailable [phone] Denise Woodson APRN REFRACTORY REPAIRER Primary Care Provider Usha Simon APRN REFRACTORY REPAIRER Unavailable [phone] Dangelo Salinas MD Unavailable Usha Simon APRN REFRACTORY REPAIRER Unavailable Anastasia Stearns RN Unavailable [phone] Germaine Aleman CHW Unavailable [phone] Robin Zepeda MD Unavailable Lisa Zabmrano MD Unavailable Raul Hoyos MD Unavailable Joya Lira [facility] Unavailable Joya Lira Joleen Unavailable [phone] Fabi Coates MD Unavailable [phone] Robin Zepeda MD Unavailable [phone] Danna Cardenas PA-C Unavailable Felicita Desai RN Unavailable Unavailab Arthur Rios Unavailable [phone] Randy Maradiaga DO Unavailable + Tete Wang MD Unavailable [phone] Reason for Visit * Reason Onset Date Comments MyChart Communication 06/08/2021 Abdominal pain Encounter Details Date Type Department Care Team (Late st Contact Info) Description 06/08/2021 MyC [facility] [address] [place] [address] Denise Woodson APRN REFRACTORY REPAIRER [address] [place] [address] MyChart Communication (Abdominal pain) Social [...] on file Legal Sex Female 4:05 AM ROTOR PLATE WASHER Gender Identity Not on file Sexual Orientation Not on file 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 Not 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 Not on file Not on file Not on file Not on file Not on file documented as of this encounter Plan of Treatment Upcoming Encounters Date Type Department Care Team (Late st Contact Info) Description 11/17/2024 2:30 PM ROTOR PLATE WASHER [facility] [address] [place] [address] Denise Woodson APRN REFRACTORY REPAIRER [address] [place] [address] 12/01/2024 4:00 PM CDT Virtual Visit [facility] Vascular Clinic Kate [address] [place] [phone] Lisa Zambrano MD 6405 [facility] [address] [place] [phone] 12/03/2024 7:00 AM CDT Virtual Visit [facility] Neurology [address] 3rd [place] [phone] Randy Maradiaga DO [address] [place] [address] 184795 12/09/2024 12:45 PM CDT Office Visit [facility] Pediatric [facility]ty Clinic [address] [place] [phone] Tete Wang MD [address] [place] [address] 33102454 12/09/2024 1:15 PM CDT Office Visit [facility]ty [facility] [address] [place] [phone] Tete Wang MD [address] [place] [address] 032644 12/15/2024 3:00 PM CDT Virtual Visit [facility] [address] [place] [address] Denise Woodson APRN [facility] [address] [place], [place] 7286568 01/19/2025 PRE VISIT [facility] for Lung Science and Health [address] [phone] Any Joiner MD [address] 647835 *-*INCOMING RECORDS*-* 01/19/2025 3:00 PM CDT Orders Only [facility] Pulmonary Function Testing [address] [phone] 01/19/2025 4:00 PM CDT Office Visit [facility] Clinic [address] [phone] Any Joiner MD 420 [facility] 276 [place], [place] 511865 06/01/2025 11:15 AM CDT Appointment [facility] Imaging [address] [place] [phone] Robin Zepeda MD [address] [place] [address] 182505 06/04/2025 11:00 AM CDT Office Visit [facility] Neurosurgery Clinic [address] [phone] Robin Zepeda MD [address] [place] [address] 505255 Usha Simon APRN [address] 415055 documented as of this encounter Visit Diagnoses Not on filedocumented in this encounter Additional Health Concerns Infection Onset Date Last Indicated Resolved Time Rule Out COVID-19 09/13/2024 09/13/2024 09/13/2024 12:31 PM ROTOR PLATE WASHER Assessment Noted Time PHQ-9 Depression Total Score: 0 01/05/20 21 9:31 AM CDT documented as of this encounter Care Teams Support Manager Relationship Specialty Start Date End Date Yung Madrigal MD RETIRED PCP - Orthopaedics Orthopedics 08/26/12 01/20/24 Winston Villatoro OD [facility] [place] [address] [place] [address] PCP - Ophthalmology Ophthalmology 02/11/13 Denise Woodson APRN REFRACTORY REPAIRER [address] [place] [address] PCP - General Family Practice 09/21/20 Denise Woodson APRN REFRACTORY REPAIRER [address] [place] [address] Assigned PCP 07/17/20 Usha Simon APRN REFRACTORY REPAIRER [address] [place] [address] 242745 Nurse Practitioner Neurological Surgery 01/24/24 Dangelo Salinas MD [address] [address] [address] Neurology 01/27/24 Usha Simon APRN REFRACTORY REPAIRER [address] [place] [address] Assigned Neuroscience Provider 02/06/24 03/07/24 Anastasia Stearns, RN Lead Remarketing Manager 02/06/24 Germaine Aleman, CHW Community Health Worker Primary Care - CC 02/18/24 Robin Zepeda MD [address] [place] [address] 535625 Assigned Neuroscience Provider 03/08/24 05/07/24 Lisa Zambrano MD 6405 [facility] [address] [place] [address] Assigned Heart and Vascular Provider 05/08/24 07/07/24 Raul Hoyos MD [address] [address] Assigned Neuroscience Provider 05/08/24 07/07/24 Joya Lira [facility] [address] [place] [address] Pharmacist Pharmacist 05/25/24 Joya Lira [facility] [address] [place] [address] Assigned MTM Pharmacist 06/08/24 Fabi Coates MD [address] [place] [address] 75 [place] [address] Genetics, Clinical 06/18/24 Robin Zepeda MD [address] [address] Assigned Neuroscience Provider 07/08/24 08/07/24 Danna Cardenas PA-C 6405 [place] [address] Assigned Heart and Vascular Provider 07/08/24 Felicita Desai RN Lead Remarketing Manager 07/14/24 07/28/24 Arthur Salas, [facility] [address] [place] [address] Assigned Behavioral Health Provider 08/08/24 Rnady Maradiaga DO 909 [place], [place] 642615 Assigned Neuroscience Provider 08/08/24 Tete Wang MD 2450 [place] [address] Genetics, Clinical 10/30/24 documented as of this encounter
--- OUTSIDE RECORDS SUMMARY | 2024-11-08 11:18 | XMS_ITS | Encounter Summary ---
Author Organization [facility] Address [address] [place] [address] Care Team Providers Care Service Assistant Name Role Phone Winston Villatoro OD Unavailable [phone] Denise Woodson APRN MARBLE SETTER HELPER Unavailable [phone] Denise Woodson APRN MARBLE SETTER HELPER Primary Care Provider Usha Smion APRN MARBLE SETTER HELPER Unavailable + [phone] Dangelo Salinas MD Unavailable Anastasia Stearns RN Unavailable [phone] Germaine Aleman [facility] Unavailable [phone] Joya Lira [facility] Unavailable [phone] Joya Lira [facility] Unavailable [phone] Fabi Coates MD Unavailable [phone] Danna CardenasC Unavailable [phone] Arthur Salas DIRECTOR OF [employer]BI[employer] MARKETING Unavailable [phone] Randy Maradiaga DO Unavailable + Tete Wang MD Unavailable [phone] Reason for Visit * Reason Onset Date Comments Erroneous encounter-disregard 09/18/2024 Encounter Details Date Type Department Care Team (Late st Contact Info) Description 09/18/2024 Telephone [facility] [address] [place] [address] Denise Woodson APRN [facility] [address] [place], [place] [phone] Erroneous encounter-disregard Social History Tobacco Use Types [...] Never 09/16/2024 How often do you attend jainism or latter-day serv ices? 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 [place] [phone] Lisa Zambrano MD [address] [place] [phone] 12/03/2024 7:00 AM CDT Virtual Visit [facility] Neurology [address] [phone] Randy Maradiaga, [address] [address] 12/09/2024 12:45 PM CDT Office Visit [facility] Specialty [facility] [address] [place] [address] [phone] Tete Wang MD [address] [place] [address] 872634 12/09/2024 1:15 PM CDT Office Visit [facility] [address] [place] [address] [phone] Tete Wang MD [address] [place] [address] 127394 12/15/2024 3:00 PM CDT Virtual Visit [facility] [address] [place] [phone] Denise Woodson APRN MARBLE SETTER HELPER [address] [place] [address] 01/19/2025 PRE VISIT [facility] Lung Science [address] [phone] Any Joiner MD [address] [place] [address] 989115 *-*INCOMING RECORDS*-* 01/19/2025 3:00 PM CDT Orders Only [facility] Pulmonary Function Testing [address] [phone] 01/19/2025 4:00 PM CDT Office Visit [facility] Lung Science [address] [phone] Any Joiner MD [address] [place] [address] 240795 06/01/2025 11:15 AM CDT Appointment [facility] Imaging [address] [facility] [address] [place] [phone] Robin Zepeda MD [address] [place] [address] 255775 06/04/2025 11:00 AM CDT Office Visit [facility] Neurosurgery [address] [phone] Robin Zepeda MD [address] [place] [address] 401705 Usha Simon APRN MARBLE SETTER HELPER [address] [place] [address] 470565 documented as of this encounter Visit Diagnoses Not on filedocumented in this encounter Additional Health Concerns Assessment Noted Time PHQ-9 Depression Total Score: 0 09/18/19 25 12:46 PM GENERAL ENGINEERING TEACHER documented as of this encounter Care Teams Service Assistant Relationship Specialty Start Date End Date Winston Villatoro OD [facility] [address] [place] [address] PCP - Ophthalmology Ophthalmology 02/11/13 Denise Woodson APRN MARBLE SETTER HELPER [address] [place], [place] 6149868 PCP - General Family Practice 09/21/20 Denise Woodson APRN MARBLE SETTER HELPER [address] [place], [place] 9267868 Assigned PCP 07/17/20 Usha Simon APRN MARBLE SETTER HELPER 909 [facility] [address] Nurse Practitioner Neurological Surgery 01/24/24 Dangelo Salinas MD [address] [place] [address] Neurology 01/27/24 Anastasia Stearns, RN Lead Hr Coordinator 02/06/24 Germaine Aleman, W Community Health Worker Primary Care - CC 02/18/24 Joya Lira [facility] [address] [place] [address] Pharmacist Pharmacist 05/25/24 Joya Lira [facility] [address] [place] [address] Assigned MTM Pharmacist 06/08/24 Fabi Coates MD 420 [facility] 75 [place] [address] Genetics, Clinical 06/18/24 Danna Cardenas PA-C 6405 [place] [address] Assigned Heart and Vascular Provider 07/08/24 Arthur Salas [facility] [address] [place] [address] Assigned Behavioral Health Provider 08/08/24 Randy Maradiaga DO 909 [place] [address] Assigned Neuroscience Provider 08/08/24 Tete Wang MD 2450 [place] [address] Genetics, Clinical 10/30/24 documented as of this encounter
--- OUTSIDE RECORDS SUMMARY | 2024-11-08 11:18 | XMS_ITS | Encounter Summary ---
Author Organization [place] Address [address] [place] [address] Care Team Providers Care Lining Sewer Name Role Phone Yung Madrigal MD Unavailable Unavailable Winston Villatoro OD Unavailable [phone] Denise Woodson APRN PEAT SHREDDER TENDER Unavailable [phone] Denise Woodson APRN PEAT SHREDDER TENDER Primary Care Provider Usha Simon APRN PEAT SHREDDER TENDER Unavailable [phone] Dangelo Salinas MD Unavailable Usha Simon APRN PEAT SHREDDER TENDER Unavailable Anastasia Stearns RN Unavailable Germaine Aleman CHW Unavailable Robin Zepeda MD Unavailable Lisa Zambrano MD Unavailable Raul Hoyos MD Unavailable Joya Lira [facility] Unavailable Joya Lira Joleen Unavailable Fabi Coates MD Unavailable [phone] Robin Zepeda MD Unavailable Danna Cardenas PA-C Unavailable Felicita Desai RN Unavailable Unavailab Arthur Rios Unavailable [phone] Randy Maradiaga DO Unavailable + Tete Wang MD Unavailable [phone] Encounter Details Date Type Department Care Team (Late st Contact Info) Description 06/13/2021 [facility] [address] [place] [address] Denise Woodson, [facility] [address] [place] [address] Insomnia, unspecified type Social History [...] file Legal Sex Female 4:05 AM SENIOR INSTRUCTOR Gender Identity Not on file Sexual Orientation Not on file 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 They stated they do not have a refill on file. Prescription approved per [facility]. Mary Caraballo RN on 06/13/2021 at 5:18 PM documented in this encounter Plan of Treatment Upcoming Encounters Date Type Department Care Team (Late st Contact Info) Description 11/17/2024 2:30 PM SENIOR INSTRUCTOR [facility] [address] [place] [phone] Denise Woodson APRN PEAT SHREDDER TENDER [address] [place], [place] [phone] 12/01/2024 4:00 PM CDT Virtual Visit [facility] [place] [address] [place] [phone] Lisa Zambrano MD [address] [place] [address] 12/03/2024 7:00 AM CDT Virtual Visit [facility] Neurology Clinic [address] [phone] Randy Maradiaga, [address] 653815 12/09/2024 12:45 PM CDT Office Visit [facility] [address] [place] [phone] Tete Wnag MD [address] [place] [address] 12/09/2024 1:15 PM CDT Office Visit [facility]ty Clinic [address] [place] [address] [phone] Tete Wang MD [address] [place] [address] 433464 12/15/2024 3:00 PM CDT Virtual Visit [facility] [address] [place] [phone] Denise Woodson APRN PEAT SHREDDER TENDER [address] [place] [address] 01/19/[address] [facility] Lung Science [address] [phone] Any Joiner MD [address] 528445 *-*INCOMING RECORDS*-* 01/19/2025 3:00 PM CDT Orders Only [facility] Pulmonary Function Testing [address]rd [place] [address] 01/19/2025 4:00 PM CDT Office Visit [facility] Lung Science [address] [phone] Any Joiner MD [address] [place] [address] 553215 06/01/2025 11:15 AM CDT Appointment [facility] Imaging [address] [place] [phone] Robin Zepeda MD [address] [place] [address] 415425 06/04/2025 11:00 AM CDT Office Visit [facility] Neurosurgery [address] [phone] Robin Zepeda MD [address] [place] [address] 041345 Usha Simon APRN PEAT SHREDDER TENDER [address] [place] [address] 080015 documented as of this encounter Visit Diagnoses Diagnosis Insomnia, unspecified type documented in this encounter Additional Health Concerns Infection Onset Date Last Indicated Resolved Time Rule Out COVID-19 09/13/2024 09/13/2024 09/13/2024 12:31 PM SENIOR INSTRUCTOR Assessment Noted Time PHQ-9 Depression Total Score: 0 01/05/20 21 9:31 AM CDT documented as of this encounter Care Teams Lining Sewer Relationship Specialty Start Date End Date Yung Madrigal MD RETIRED PCP - Orthopaedics Orthopedics 08/26/12 01/20/24 Winston Villatoro OD [facility] [address] [facility] [address] [place] [address] PCP - Ophthalmology Ophthalmology 02/11/13 Denise Woodson APRN PEAT SHREDDER TENDER [address] [place] [address] PCP - General Family Practice 09/21/20 Denise Woodson APRN PEAT SHREDDER TENDER [address] [place] [address] Assigned PCP 07/17/20 Usha Simon APRN PEAT SHREDDER TENDER [address] [place] [address] 437555 Nurse Practitioner Neurological Surgery 01/24/24 Dangelo Salinas MD [address] [address] Neurology 01/27/24 Usha Simon APRN PEAT SHREDDER TENDER [address] [address] Assigned Neuroscience Provider 02/06/24 03/07/24 Anastasia Stearns, RN Lead Juke Box Mechanic 02/06/24 Germaine Aleman, W Community Health Worker Primary Care - CC 02/18/24 Robin Zepeda MD [address] [place] [address] Assigned Neuroscience Provider 03/08/24 05/07/24 Lisa Zambrano MD 6405 [facility] [address] [place] [address] Assigned Heart and Vascular Provider 05/08/24 07/07/24 Raul Hoyos MD [address] [place] [address] Assigned Neuroscience Provider 05/08/24 07/07/24 Joya Lira RPH [address] [place] [address] Pharmacist Pharmacist 05/25/24 Joya Lira RPH [address] [place] [address] Assigned MTM Pharmacist 06/08/24 Fabi Coates MD [address] [place] [address] 75 [place] [address] Genetics, Clinical 06/18/24 Robin Zepeda MD [address] [place] [address] Assigned Neuroscience Provider 07/08/24 08/07/24 Danna Cardenas PA-C 6405 [place] [address] Assigned Heart and Vascular Provider 07/08/24 Felicita Desai, RN Lead Juke Box Mechanic 07/14/24 07/28/24 Arthur Salas, [facility] [address] [place] [address] Assigned Behavioral Health Provider 08/08/24 Randy Maradiaga DO 909 [place] [address] Assigned Neuroscience Provider 08/08/24 Tete Wang MD 2450 [place] [address] Genetics, Clinical 10/30/24 documented as of this encounter
--- OUTSIDE RECORDS SUMMARY | 2024-11-08 11:18 | XMS_ITS | Encounter Summary ---
Author Organization [facility] Address [address] [place] [address] Care Team Providers Care Bartender Name Role Phone Yung Madrigal MD Unavailable Unavailable Winston Villatoro OD Unavailable [phone] Serum, Clara Garland MD Primary Care Provider Serum, Clara Garland MD Unavailable [phone] Denise Woodson APRN LENS MOUNTER Unavailable [phone] Denise Woodson VALVE MAKER LENS MOUNTER Primary Care Provider Usha Simon VALVE MAKER LENS MOUNTER Unavailable Dangelo Salinas MD Unavailable Usha Simon VALVE MAKER LENS MOUNTER Unavailable Anastasia Stearns RN Unavailable [phone] Germaine Aleman CHW Unavailable [phone] Robin Zepeda MD Unavailable Lisa Zambrano MD Unavailable Raul Hoyos MD Unavailable Joya Lira [facility] Unavailable [phone] Joya Lira [facility] Unavailable [phone] Fabi Coates MD Unavailable [phone] Robin Catalan MD Unavailable Danna Cardenas PA-C Unavailable Felicita Desai RN Unavailable Unavailab Arthur RiosSW Unavailable [phone] LaronRandy bucio Yobany MARTIN Unavailable + Tete Wang MD Unavailable [phone] Encounter Details Date Type Department Care Team (Late Contact Info) Description 01/21/2019 MyC Medical Advice [address] [place] [address] Phoebe Del Cid Social History [...] file Legal Sex Female 4:05 AM ENVIRONMENTAL ENGINEERING TECHNICIAN Gender Identity Not on file [...] (Late Contact Info) Description 11/17/2024 2:30 PM ENVIRONMENTAL ENGINEERING TECHNICIAN Virtual Visit [facility] [address] [place] [address] Denise Woodson APRN LENS MOUNTER [address] [place] [address] 12/01/2024 4:00 PM CDT Virtual Visit [facility] Vascular Clinic [place] [address] [place] [phone] Lisa Zambrano MD [address] [place] [address] 12/03/2024 7:00 AM CDT Virtual Visit [facility] Neurology Clinic [address] [place] [phone] Randy Maradiaga DO [address] [place] [address] 823385 12/09/2024 12:45 PM CDT Office Visit [facility] Pediatric Specialty Clinic [address] [place] [phone] Tete Wang MD [address] [place] [address] 47755454 12/09/2024 1:15 PM CDT Office Visit [facility] Pediatric Specialty Clinic [address] [place] [address] [phone] Tete Wang MD [address] [place] [address] [phone] 12/15/2024 3:00 PM CDT Virtual Visit [facility] [address] [place] [address] Denise Woodson APRN [facility] [address] [place] [address] 01/19/2025 PRE VISIT [facility] [address] [address] Any Joiner MD [address] [place] [address] 733885 *-*INCOMING RECORDS*-* 01/19/2025 3:00 PM CDT Orders Only [facility] Pulmonary Function Testing [address] [place] [phone] 01/19/2025 4:00 PM CDT Office Visit [facility] [address] [phone] Any Joiner MD 420 [facility] [address] [place], [place] 226[address] 06/01/2025 11:15 AM CDT Appointment [facility] Imaging [address] [place] [address] Robin Zepeda MD [address] [place] [address] 681505 06/04/2025 11:00 AM CDT Office Visit [facility] Neurosurgery Clinic [address] [phone] Robin Zepeda MD [address] [place] [address] 167415 Usha Simon APRN [address] 304745 documented as of this encounter Visit Diagnoses Not on filedocumented in this encounter Additional Health Concerns Infection Onset Date Last Indicated Resolved Time Rule Out COVID-19 09/13/2024 09/13/2024 09/13/2024 12:31 PM ENVIRONMENTAL ENGINEERING TECHNICIAN Assessment Noted Time PHQ-9 Depression Total Score: 0 02/09/20 17 7:29 AM CDT documented as of this encounter Care Teams Bartender Relationship Specialty Start Date End Date Yung Madrigal MD RETIRED PCP - Orthopaedics Orthopedics 08/26/12 01/20/24 Winston Villatoro OD [facility] [place] [address] [place] [address] PCP - Ophthalmology Ophthalmology 02/11/13 Clara Cornell MD [facility] [place] [address] [place] [address] PCP - General Internal Medicine 02/07/17 09/20/20 Denise Woodson APRN LENS MOUNTER [address] [place] [address] PCP - General Family Practice 09/21/20 Clara Cornell MD 8675 [place] [address] Assigned PCP 01/17/17 07/16/20 Denise Woodson APRN LENS MOUNTER [address] [place] [address] Assigned PCP 07/17/20 Usha Simon APRN LENS MOUNTER [address] [address] Nurse Practitioner Neurological Surgery 01/24/24 Dangelo Salinas MD [address] [place] [address] [place] [address] Neurology 01/27/24 Usha Simon APRN LENS MOUNTER [address] [address] Assigned Neuroscience Provider 02/06/24 03/07/24 Anastasia Stearns RN Lead Computer Methods Analyst 02/06/24 Germaine Aleman, W Community Health Worker Primary Care - CC 02/18/24 Robin Zepeda MD [address] [address] Assigned Neuroscience Provider 03/08/24 05/07/24 Lisa Zambrano MD [address] [facility] [address] [place] [address] Assigned Heart and Vascular Provider 05/08/24 07/07/24 Raul Hoyos MD [address] [place] [address] 972515 Assigned Neuroscience Provider 05/08/24 07/07/24 Joya Lira Joleen [address] [place] [address] Pharmacist Pharmacist 05/25/24 Joya Lira Joleen [address] [place] [address] Assigned MTM Pharmacist 06/08/24 Fabi Coates MD [facility] 75 [place] [address] Genetics, Clinical 06/18/24 Robin Zepeda MD [address] [address] Assigned Neuroscience Provider 07/08/24 08/07/24 Danna Cardenas PA-C 6405 [place] [address] Assigned Heart and Vascular Provider 07/08/24 Felicita Desai, RN Lead Computer Methods Analyst 07/14/24 07/28/24 Arthur Salas, [facility] [address] [address] Assigned Behavioral Health Provider 08/08/24 Randy Maradiaga DO [address] [place] [address] Assigned Neuroscience Provider 08/08/24 Tete Wang MD [address] [place] [address] Genetics, Clinical 10/30/24 documented as of this encounter
--- OUTSIDE RECORDS SUMMARY | 2024-11-08 11:18 | XMS_ITS | Encounter Summary ---
Author Organization [place] Address [address] [place] [address] Care Team Providers Care Patient Centered Care Specialist Name Role Phone Timmy Perez MD Unavailable Unavailable Yung Madrigal MD Unavailable Unavailable Winston Villatoro OD Unavailable [phone] Apple Sykes MD Primary Care Provider Unavailab Westley Vera MD Unavailable [phone] GeorginaAlessandra Gómez APRN ARBOR PRESS OPERATOR Primary Car e Provider Serum, Clara Garland MD Primary Care Provider Serum, Clara Garland MD Unavailable [phone] Serum, Clara Garland MD Unavailable [phone] Denise Woodson APRN ARBOR PRESS OPERATOR Unavailable [phone] Denise Woodson APRN ARBOR PRESS OPERATOR Primary Care Provider Usha Simon APRN ARBOR PRESS OPERATOR Unavailable + [phone] Dangelo Salinas MD Unavailable Usha Simon APRN ARBOR PRESS OPERATOR Unavailable + [phone] Anastasia Stearns RN Unavailable [phone] Germaine Aleman Unavailable [phone] Robin Zepeda MD Unavailable [phone] Lisa Zambrano MD Unavailable + [phone] Raul Hoyos MD Unavailable SorayaJoya [facility] Unavailable [phone] [facility]oya [facility] Unavailable [phone] Fabi Coates MD Unavailable [phone] DuaneRobin MD Unavailable [phone] Danna Cardenas PA-C Unavailable [phone] Felicita Desai RN Unavailable Unavailab gabino Arthur Salas LIFE SCIENCES DIRECTOR Unavailable [phone] Randy Maradiaga DO Unavailable + Tete Wang MD Unavailable [phone] Encounter Details Date Type Department Care Team (Late st Contact Info) Description 05/19/2013 MyC Medical Advice [facility] [place] Orth[facility] [address] [place] [address] Yung Madrigal MD RETIRED Social History Tobacco Use Types Packs/Day Years Used Date Smoking Tobacco: Never Smokeless Tobacco: Never Alcohol Use Standard Drinks/Week Comments Yes 0 (1 standard drink = 0.6 oz pur e alcohol) minimal Comments No Sex and Gender Information Value Date Recorded Sex Assigned at Not on file Legal Sex Female 4:05 AM HAND FRAME SURGICAL ELASTIC KNITTER Gender Identity Not on file Sexual Orientation Not on file 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 [place] [phone] Lisa Zambrano MD [address] [place] [address] 12/03/2024 7:00 AM CDT Virtual Visit [facility] Neurology Clinic [address] 3rd [place] [address] Randy Maradiaga, [address] 609[address] 12/09/2024 12:45 PM CDT Office Visit [facility] [address] [place] [address] [phone] Tete Wang MD [address] [place] [address] 12/09/2024 1:15 PM CDT Office Visit [facility] [address] [place] [address] [phone] Tete Wang MD [address] [place] [address] 12/15/2024 3:00 PM CDT Virtual Visit [facility] [address] [place] [phone] Denise Woodson APRN [facility] [address] [place], [place] 5430968 01/19/2025 PRE VISIT [facility] Clinic [address] [phone] Any Joiner MD [address] [address] *-*INCOMING RECORDS*-* 01/19/2025 3:00 PM CDT Orders Only [facility] Pulmonary Function Testing [address] [place] [phone] 01/19/2025 4:00 PM CDT Office Visit [facility] [address] [phone] Any Joiner MD [address] [place] [address] 06/01/2025 11:15 AM CDT Appointment [facility] Imaging [address] [place] [phone] Robin Zepeda MD [address] [place] [address] 06/04/2025 11:00 AM CDT Office Visit [facility] Neurosurgery [address] [phone] Robin Zepeda MD [address] [place] [address] 804105 Usha Simon APRN [address] 228215 documented as of this encounter Visit Diagnoses Not on filedocumented in this encounter Additional Health Concerns Infection Onset Date Last Indicated Resolved Time Rule Out COVID-19 09/13/2024 09/13/2024 09/13/2024 12:31 PM HAND FRAME SURGICAL ELASTIC KNITTER documented as of this encounter Care Teams Patient Centered Care Specialist Relationship Specialty Start Date End Date Timmy Perez MD PCP - Obstetrics/Gynecology 03/02/08 08/07/15 Yung Madrigal MD RETIRED PCP - Orthopaedics Orthopedics 08/26/12 01/20/24 Winston Villatoro OD [facility] [place] [address] [place] [address] PCP - Ophthalmology Ophthalmology 02/11/13 Apple Sykes MD [facility] [place] [address] [place] [address] PCP - General Family Practice 05/04/13 10/25/16 Westley Bates MD XXX RETIRED XXX [address] [place] [address] PCP - ENT Otolaryngology 05/14/13 07/28/18 [facility]N ARBOR PRESS OPERATOR [address] [facility] [place] [id number] PCP - General Nurse Practitioner 10/26/16 02/06/17 Clara Cornell MD [address] [facility] [place] [address] PCP - General Internal Medicine 02/07/17 09/20/20 Clara Cornell MD 8675 [place] [address] PCP - Assigned PCP 01/17/17 11/18/18 Denise Woodson APRN ARBOR PRESS OPERATOR [address] [place] [address] PCP - General Family Practice 09/21/20 Clara Cornell MD 8675 [place] [address] Assigned PCP 01/17/17 07/16/20 Denise Woodson APRN ARBOR PRESS OPERATOR [address] [facility] [place] [address] Assigned PCP 07/17/20 Usha Simon APRN ARBOR PRESS OPERATOR [address] 063305 Nurse Practitioner Neurological Surgery 01/24/24 Dangelo Salinas MD [address] [place], [place] [phone] Neurology 01/27/24 Usha Simon APRN ARBOR PRESS OPERATOR [address] 782945 Assigned Neuroscience Provider 02/06/24 03/07/24 Anastasia Stearns, RN Lead Doll Wig Maker Rooted Hair 02/06/24 Germaine Aleman, W Community Health Worker Primary Care - CC 02/18/24 Robin Zepeda MD [address] 823355 Assigned Neuroscience Provider 03/08/24 05/07/24 Lisa Zambrano MD [address] [place] 039385 Assigned Heart and Vascular Provider 05/08/24 07/07/24 Raul Hoyos MD 909 [facility] [place], [place] 732595 Assigned Neuroscience Provider 05/08/24 07/07/24 Joya Lira [facility] [address] [place] [address] Pharmacist Pharmacist 05/25/24 Joya Lira [facility] [address] [place] [address] Assigned MTM Pharmacist 06/08/24 Fabi Coates MD [address] [place] [address] 75 [place], [place] 520885 Genetics, Clinical 06/18/24 Robin Zepeda MD [address] [place], [place] [address]121[address]J [place], [place] 396905 Assigned Neuroscience Provider 07/08/24 08/07/24 Danna Cardenas PA-C [address] [place] [address] Assigned Heart and Vascular Provider 07/08/24 Felicita Desai RN Lead Doll Wig Maker Rooted Hair 07/14/24 07/28/24 Arthur Salas [facility] [address] [address] Assigned Behavioral Health Provider 08/08/24 Randy Maradiaga DO [address] [place] [address] Assigned Neuroscience Provider 08/08/24 Tete Wang MD [address] [place] [address] Genetics, Clinical 10/30/24 documented as of this encounter
--- OUTSIDE RECORDS SUMMARY | 2024-11-08 11:19 | XMS_ITS | Encounter Summary ---
Author Organization [place] Address [address] [place] [address] Care Team Providers Care Spinner Iron Name Role Phone Winston Villatoro OD Unavailable +[phone] Denise Woodson APRN SIGN INSTALLER Unavailable [phone] Denise Woodson APRN SIGN INSTALLER Primary Care Provider Usha Simon APRN SIGN INSTALLER Unavailable + [phone] Dangelo Salinas MD Unavailable Anastasia Stearns RN Unavailable [phone] Germaine Aleman [facility] Unavailable +[phone] Joya Lira [facility] Unavailable +[phone] Joya Lira [facility] Unavailable [phone] Fabi Coates MD Unavailable [phone] Danna Cardenas PA-C Unavailable +[phone] Arthur Salas INCIDENT HANDLER Unavailable +[phone] Randy Maradiaga DO Unavailable + Tete Wang MD Unavailable +[phone] Encounter Details Date Type Department Care Team (Late st Contact Info) Description 08/11/2024 [facility] [address] [place] [address] Arthur Salas, INCIDENT HANDLER [address] [place] [address] Social History Tobacco Use Types Packs/Day Years [...] How often do you attend restoration or confucianism serv ices? Never 02/28/2024 Do [...] Answer Date Recorded PHQ-2 Score 2 08/04/2024 [facility] [place] of Occupat ional Health - [...] Date Recorded Do you have housing? 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 [place] [phone] Lisa Zambrano MD [address] [place] [address] 12/03/2024 7:00 AM CDT Virtual Visit [facility] Neurology [address] [phone] Randy Maradiaga [address] [address] 12/09/2024 12:45 PM CDT Office Visit [facility] [address] [place] [address] [phone] Tete Wang MD [address] [place] [address] 12/09/2024 1:15 PM CDT Office Visit [facility] Pediatric Specialty Clinic [address] [place] [address] [phone] Tete Wang MD [address] [place] [address] 957064 12/15/2024 3:00 PM CDT Virtual Visit [facility] [place] [address] [place] [phone] Denise Woodson APRN SIGN INSTALLER [address] [place] [address] 01/19/2025 PRE VISIT [facility] Lung Science [address] [phone] Any Joiner MD [address] [place] [address] [phone] *-*INCOMING RECORDS*-* 01/19/2025 3:00 PM CDT Orders Only [facility] Pulmonary Function Testing [address] [place] [address] 01/19/2025 4:00 PM CDT Office Visit [facility] Lung Science [address] [phone] Any Joiner MD [address] [place] [address] [phone] 06/01/2025 11:15 AM CDT Appointment [facility] Specialty Care Center Imaging [address] [facility] [address] [place] [address] Robin Zepeda MD [address] [place] [address] 215385 06/04/2025 11:00 AM CDT Office Visit [facility] Neurosurgery Clinic [address] [phone] Robin Zepeda MD [address] [place] [address] 570205 Usha Simon APRN [address] 288675 documented as of this encounter Visit Diagnoses Not on filedocumented in this encounter Additional Health Concerns Infection Onset Date Last Indicated Resolved Time Rule Out COVID-19 09/13/2024 09/13/2024 09/13/2024 12:31 PM AIR AND WATER FILLER Assessment Noted Time PHQ-9 Depression Total Score: 5 08/03/20 12:49 PM AIR AND WATER FILLER documented as of this encounter Care Teams Spinner Iron Relationship Specialty Start Date End Date Winston Villatoro OD [facility] [place] [address] [place] [address] PCP - Ophthalmology Ophthalmology 02/11/13 Denise Woodson APRN SIGN INSTALLER [address] [place] [address] PCP - General Family Practice 09/21/20 Denise Woodson APRN SIGN INSTALLER [address] [place] [address] Assigned PCP 07/17/20 Usha Simon APRN SIGN INSTALLER 909 [facility]121[place], [place] [address] Nurse Practitioner Neurological Surgery 01/24/24 Dangelo Salinas MD [address] [place], [place] [phone] Neurology 01/27/24 Anastasia Stearns, RN Lead Electric Meter Tester Helper 02/06/24 Germaine Aleman, CHW Community Health Worker Primary Care - CC 02/18/24 Joya Lira RPH [address] [place], [place] [phone] Pharmacist Pharmacist 05/25/24 Soraya Joya [facility] [address] [place] [address] Assigned MTM Pharmacist 06/08/24 Fabi Coates MD 420 [facility] 75 [place] [address] Genetics, Clinical 06/18/24 Danna Cardenas PA-C 6405 [place] [address] Assigned Heart and Vascular Provider 07/08/24 Arthur Salas LICSW [address] [place] [address] Assigned Behavioral Health Provider 08/08/24 Randy Maradiaga DO 909 [place], [place] 944905 Assigned Neuroscience Provider 08/08/24 Tete Wang MD 2450 [place], [place] 333394 Genetics, Clinical 10/30/24 documented as of this encounter
--- OUTSIDE RECORDS SUMMARY | 2024-11-08 11:19 | XMS_ITS | Encounter Summary ---
Author Organization [place] Address [address] [place] [address] Care Team Providers Care Multifocal Button Grinder Name Role Phone Winston Villatoro OD Unavailable [phone] Denise Woodson APRN FINANCIAL COUNSELOR Unavailable [phone] Denise Woodson APRN FINANCIAL COUNSELOR Primary Care Provider Usha Simon APRN FINANCIAL COUNSELOR Unavailable + [phone] Dangelo Salinas MD Unavailable Anastasia Stearns RN Unavailable Germaine Aleman [facility] Unavailable [phone] Lisa Zambrano MD Unavailable + [phone] Raul Hoyos MD Unavailable Joya Lira [facility] Unavailable [phone] [facility] Unavailable [phone] Fabi Coates MD Unavailable [phone] Robin Zepeda MD Unavailable [phone] Danna Cardenas PA-C Unavailable [phone] Felicita Desai RN Unavailable Unavailab Arthur Rios Unavailable +[phone] Randy Maradiaga DO Unavailable + Tete Wang MD Unavailable Encounter Details Date Type Department Care Team (Late st Contact Info) Description 05/15/2024 [facility] Neurology Clinic [address] [place] [phone] Stacey Kelley, RN Social History Tobacco Use [...] How often do you attend quaker or denominational serv ices? 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 [place] [phone] Lisa Zambrano MD [address] [place] 214455 12/03/2024 7:00 AM CDT Virtual Visit [facility] Neurology [address] [phone] Randy Maradiaga, [address] [address] 12/09/2024 12:45 PM CDT Office Visit [facility] [address] [place] [address] [phone] Tete Wang MD [address] [place] [address] 380604 12/09/2024 1:15 PM CDT Office Visit [facility] [address] [place] [address] [phone] Tete Wang MD [address] [place] [address] 045264 12/15/2024 3:00 PM CDT [facility] [address] [place] [phone] Denise Woodson APRN FINANCIAL COUNSELOR [address] [place], [place] [address] 01/19/2025 PRE VISIT [facility] Lung Science [address] [phone] Any Joiner MD [address] [place] [address] 122865 *-*INCOMING RECORDS*-* 01/19/2025 3:00 PM CDT Orders Only [facility] Pulmonary Function Testing [address] [phone] 01/19/2025 4:00 PM CDT Office Visit [facility] Lung Science [address] [phone] Any Joiner MD [address] [place] [address] 869085 06/01/2025 11:15 AM CDT Appointment [facility] [address] [facility] [address] [place] [phone] Robin Zepeda MD [address] [place] [address] 554495 06/04/2025 11:00 AM CDT Office Visit [address] [phone] Robin Zepeda MD [address] [place] [address] 360255 Usha Simon APRN FINANCIAL COUNSELOR [address] [place] [address] documented as of this encounter Visit Diagnoses Not on filedocumented in this encounter Additional Health Concerns Infection Onset Date Last Indicated Resolved Time Rule Out COVID-19 09/13/2024 09/13/2024 09/13/2024 12:31 PM PERSON INVESTIGATOR Assessment Noted Time PHQ-9 Depression Total Score: 5 03/17/20 24 9:45 AM CDT documented as of this encounter Care Teams Multifocal Button Grinder Relationship Specialty Start Date End Date Winston [facility]atoro OD [facility] [place] [address] [place] [address] PCP - Ophthalmology Ophthalmology 02/11/13 Denise Woodson APRN FINANCIAL COUNSELOR [address] [facility] [facility] [place] [address] PCP - General Family Practice 09/21/20 Denise Woodson APRN FINANCIAL COUNSELOR [address] [facility] [facility] [address] Assigned PCP 07/17/20 Usha Simon APRN FINANCIAL COUNSELOR [address] [facility] [id number] [address] Nurse Practitioner Neurological Surgery 01/24/24 Dangelo Salinas MD [address] [place] [address] Neurology 01/27/24 Anastasia Stearns, RN Lead Tonguer 02/06/24 Germaine Aleman, CHW Community Health Worker Primary Care - CC 02/18/24 Lisa Zambrano MD 6405 [facility] [address] [place] [address] Assigned Heart and Vascular Provider 05/08/24 07/07/24 Raul Hoyos MD 909 [facility]121[place], [place] [address] Assigned Neuroscience Provider 05/08/24 07/07/[address] [facility] [address] [place] [address] Pharmacist Pharmacist 05/25/[address] [facility] [address] [place] [address] Assigned MTM Pharmacist 06/08/24 Fabi Coates MD 420 [facility] 75 [place], [place] 321455 Genetics, Clinical 06/18/24 Robin Zepeda MD 909 [facility] [place] [address] Assigned Neuroscience Provider 07/08/24 08/07/24 Danna Cardenas PA-C 6405 [place] [address] Assigned Heart and Vascular Provider 07/08/24 Felicita Desai, RN Lead Tonguer 07/14/24 07/28/24 Arthur Salas [facility] [address] [place] [address] Assigned Behavioral Health Provider 08/08/24 Randy Maradiaga DO 909 [place] [address] Assigned Neuroscience Provider 08/08/24 Tete Wang MD 2450 [place] [address] Genetics, Clinical 10/30/24 documented as of this encounter
--- OUTSIDE RECORDS SUMMARY | 2024-11-08 11:19 | XMS_ITS | Encounter Summary ---
Author Organization [place] Address [address] [place] [address] Care Team Providers Care Limb Driver Name Role Phone Winston Villatoro OD Unavailable [phone] Denise Woodson APRN SWINE NUTRITIONIST Unavailable [phone] Denise Woodson APRN SWINE NUTRITIONIST Primary Care Provider Usha Simon APRN SWINE NUTRITIONIST Unavailable + [phone] Dangelo Salinas MD Unavailable Anastasia Stearns RN Unavailable Germaine Aleman [facility] Unavailable +[phone] Joya Lira [facility] Unavailable +[phone] Joya Lira [facility] Unavailable [phone] Fabi Coates MD Unavailable [phone] Danna Cardenas PA-C Unavailable [phone] Arthur Salas HOP SORTER Unavailable [phone] Randy Maradiaga DO Unavailable + Tete Wang MD Unavailable [phone] Encounter Details Date Type Department Care Team (Late st Contact Info) Description 10/05/[address] [facility] Neurology [address] [place] [address] Phoebe Del Cid Social History [...] Never 09/16/2024 How often do you attend buddhism or cheondoism serv ices? 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 [place] [phone] Lisa Zambrano MD [address] [place] [address] 12/03/2024 7:00 AM CDT Virtual Visit [facility] Neurology [address] 3rd [place] [phone] Randy Maradiaga, [address] 578285 12/09/2024 12:45 PM CDT Office Visit [facility] Pediatric Specialty Clinic [address] [place] [address] [phone] Tete Wang MD [address] [place] [address] 534834 12/09/2024 1:15 PM CDT Office Visit [facility] Pediatric Specialty Clinic [address] [place] [address] [phone] Tete Wang MD [address] [place] [address] 12/15/2024 3:00 PM CDT Virtual Visit [facility] [address] [place] [address] Denise Woodson APRN [facility] [address] [place], [place] 1749668 01/19/2025 PRE VISIT [facility] [address] [phone] Any Joiner MD [address] [place] [address] 383995 *-*INCOMING RECORDS*-* 01/19/2025 3:00 PM CDT Orders Only [facility] Pulmonary Function Testing [address] [phone] 01/19/2025 4:00 PM CDT Office Visit [facility] [address] [phone] Any Joiner MD [address] [place] [address] 252165 06/01/2025 11:15 AM CDT Appointment [facility] Care Center Imaging [address] [facility] [address] [place] [phone] Robin Zepeda MD [address] [place] [address] 742755 06/04/2025 11:00 AM CDT Office Visit [facility] Neurosurgery [address] [phone] Robin Zepeda MD [address] [place] [address] 604805 Usha Simon APRN [address] 078085 documented as of this encounter Visit Diagnoses Not on filedocumented in this encounter Additional Health Concerns Assessment Noted Time PHQ-9 Depression Total Score: 0 09/18/19 25 12:46 PM FOOD PROCESSOR documented as of this encounter Care Teams Limb Driver Relationship Specialty Start Date End Date Winston Villatoro OD [facility] [place] [address] [place] [address] PCP - Ophthalmology Ophthalmology 02/11/13 Denise Woodson APRN SWINE NUTRITIONIST [address] [place] [address] PCP - General Family Practice 09/21/20 Denise Woodson APRN SWINE NUTRITIONIST [address] [facility] [facility] [place] [address] Assigned PCP 07/17/20 Usha Simon APRN SWINE NUTRITIONIST 909 [facility]2121[place], [place] [address] Nurse Practitioner Neurological Surgery 01/24/24 Dangelo Salinas MD [address] [place], [place] [address] Neurology 01/27/24 Anastasia Stearns, RN Lead Coronary Care Unit Nurse 02/06/24 Germaine Aleman, W Community Health Worker Primary Care - CC 02/18/24 Joya Lira RPH [address] [place] [address] Pharmacist Pharmacist 05/25/24 Joya Lira RPH [address] [place] [address] Assigned MTM Pharmacist 06/08/24 Fabi Coates MD 420 [facility] 75 [place] [address] Genetics, Clinical 06/18/24 Danna Cardenas PA-C 6405 [place] [address] Assigned Heart and Vascular Provider 07/08/24 Arthur Salas [facility] [address] [place] [address] Assigned Behavioral Health Provider 08/08/24 Randy Maradiaga DO 909 [place] [address] Assigned Neuroscience Provider 08/08/24 Tete Wang MD 2450 [place] [address] Genetics, Clinical 10/30/24 documented as of this encounter
--- OUTSIDE RECORDS SUMMARY | 2024-11-08 11:19 | XMS_ITS | Encounter Summary ---
Author Organization [place] Address [address] [place] [address] Care Team Providers Care Film Waxer Name Role Phone Winston Villatoro OD Unavailable [phone] Denise Woodson APRN SPORTS BOOK WRITER Unavailable [phone] Denise Woodson APRN SPORTS BOOK WRITER Primary Care Provider Usha Simon APRN SPORTS BOOK WRITER Unavailable + [phone] Dangelo Salinas MD Unavailable Anastasia Stearns RN Unavailable Germaine Aleman [facility] Unavailable Jyoa Lira [facility] Unavailable Joya Lira [facility] Unavailable Fabi Coates MD Unavailable [phone] Danna Cardenas PA-C Unavailable [phone] Arthur Salas NETWORK PLANNER Unavailable [phone] Randy Maradiaga DO Unavailable + Encounter Details Date Type Department Care Team (Late st Contact Info) Description 10/05/2024 Telephone [facility] Neurology [address] 3rd [place] [address] Randy Maradiaga DO [address] [place] [address] Social History Tobacco Use Types Packs/Day Years [...] Never 09/16/2024 How often do you attend anabaptist or mu-ism serv ices? 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 Maradiaga Return date: 2025 Specialty phone number: [phone] Additional appointment(s) needed: NA Additonal Notes: PATIAL SYSTEMS INTEGRATOR documented in this encounter Plan of Treatment Upcoming Encounters Date Type Department Care Team (Late st Contact Info) Description 11/17/2024 2:30 PM GEOSPATIAL SYSTEMS INTEGRATOR Virtual Visit [facility] [address] [place] [phone] Denise Woodson APRN [facility] [address] [place], [place] 326[address] 12/01/2024 4:00 PM CDT Virtual Visit [facility] Vascular [facility] [address] [place] [phone] Lisa Zambrano MD [address] [place] [address] 12/03/2024 7:00 AM CDT Virtual Visit [facility] Neurology Clinic [address] 3rd [place] [phone] Randy Maradiaga DO [address] [place] [address] 12/09/2024 12:45 PM CDT Office Visit [facility] [address] [phone] Tete Wang MD [address] [place] [address] 128194 12/09/2024 1:15 PM CDT Office Visit [facility]ty [facility] [address] [place] [phone] Tete Wang MD [address] [place] [address] 12/15/2024 3:00 PM CDT Virtual Visit [address] [phone] Denise Woodson APRN CNP [address] [place] [address] 6015468 01/19/2025 PRE VISIT [facility] [address] [phone] Any Joiner MD [address] [place] [address] 008525 *-*INCOMING RECORDS*-* 01/19/2025 3:00 PM CDT Orders Only [facility] Pulmonary Function Testing [address] 3rd [place] [phone] 01/19/2025 4:00 PM CDT Office Visit [facility] [address] [phone] Any Joiner MD [address] [place] [address] 571595 06/01/2025 11:15 AM CDT Appointment [facility] Imaging [address] [phone] Robin Zepeda MD [address] [place] [address] 450935 06/04/2025 11:00 AM CDT Office Visit [facility] Neurosurgery Clinic [address] 3rd [place] [phone] Robin Zepeda MD [address] [place] [address] 572695 Usha Simon APRN SPORTS BOOK WRITER [address] [place] [address] 485615 documented as of this encounter Visit Diagnoses Not on filedocumented in this encounter Additional Health Concerns Assessment Noted Time PHQ-9 Depression Total Score: 0 09/18/19 25 12:46 PM GEOSPATIAL SYSTEMS INTEGRATOR documented as of this encounter Care Teams Film Waxer Relationship Specialty Start Date End Date Winston Villatoro OD [facility] [place] [address] [facility] [address] [place] [address] PCP - Ophthalmology Ophthalmology 02/11/13 Denise Woodson APRN SPORTS BOOK WRITER [address] [place] [address] PCP - General Family Practice 09/21/20 Denise Woodson APRN SPORTS BOOK WRITER [address] [place] [place] [address] Assigned PCP 07/17/20 Usha Simon APRN SPORTS BOOK WRITER [address] [place] [address] 949255 Nurse Practitioner Neurological Surgery 01/24/24 Dangelo Salinas MD [address] [facility] [address] [phone] Neurology 01/27/24 Anastasia Stearns, RN Lead Experience Designer 02/06/24 Germaine Aleamn, W Community Health Worker Primary Care - CC 02/18/24 Joya Lira [facility] [address] [place], [place] [phone] Pharmacist Pharmacist 05/25/24 Joya Lira [facility] [address] [place] [address] Assigned MTM Pharmacist 06/08/24 Fabi Coates MD 420 [facility] 75 [place], [place] 556585 Genetics, Clinical 06/18/24 Danna Cardenas PA-C 6405 [place] [address] Assigned Heart and Vascular Provider 07/08/24 Arthur Salas LICSW [address] [place] [address] Assigned Behavioral Health Provider 08/08/24 Randy Maradiaga DO 909 [place] [address] Assigned Neuroscience Provider 08/08/24 documented as of this encounter
--- OUTSIDE RECORDS SUMMARY | 2024-11-08 11:19 | XMS_ITS | Encounter Summary ---
Author Organization [place] Address [address] [place] [address] Care Team Providers Care Pumper Gauger Apprentice Name Role Phone Winston Villatoro OD Unavailable [phone] Denise Woodson APRN RADIOLOGY TRANSPORTER Unavailable [phone] Denise Woodson APRN RADIOLOGY TRANSPORTER Primary Care Provider Usha Simon APRN RADIOLOGY TRANSPORTER Unavailable Dangelo Salinas MD Unavailable Usha Simon APRN RADIOLOGY TRANSPORTER Unavailable Anastasia Stearns RN Unavailable Germaine Aleman CH Unavailable [phone] Robin Zepeda MD Unavailable [phone] Lisa Zambrano MD Unavailable Raul Hoyos MD Unavailable Joya Lira RP Unavailable [phone] Joya Lira RPJoleen Unavailable +[phone] Fabi Coates MD Unavailable [phone] Robin Zepeda MD Unavailable Danna Cardenas PA-C Unavailable [phone] Felicita Desai RN Unavailable Unavailab Arthur Rios [facility] Unavailable [phone] Randy Maradiaga DO Unavailable + Tete Wang MD Unavailable +[phone] Encounter Details Date Type Department Care Team (Late st Contact Info) Description 01/27/2024 MyC Medical Advice [facility] Neurology Clinic [address] 3rd [place] [address] [facility] Social History Tobacco Use Types [...] on file Legal Sex Female 4:05 AM COMPUTER TECHNOLOGY TRAINER Gender Identity Not on file Sexual Orientation [...] st Contact Info) Description 11/17/2024 2:30 PM COMPUTER TECHNOLOGY TRAINER Virtual Visit [facility] [address] [place] [address] Denise Woodson APRN [facility] [address] [place], [place] 18887[address] 12/01/2024 4:00 PM CDT Virtual Visit [facility] Vascular Clinic Kate [address] [place] [phone] Lisa Zambrano MD [address] [place] 112975 12/03/2024 7:00 AM CDT Virtual Visit [facility] Neurology Clinic [address] [phone] Randy Maradiaga [address] [address] 12/09/2024 12:45 PM CDT Office Visit [facility] [address] [place] [address] [phone] Tete Wang MD [address] [place] [address] [phone] 12/09/2024 1:15 PM CDT Office Visit [facility] [address] [place] [address] [phone] Tete Wang MD [address] [place] [address] 905504 12/15/2024 3:00 PM CDT Virtual Visit [facility] [address] [place] [address] Denise Woodson APRN [facility] [address] [place] [address] [phone] 01/19/2025 PRE VISIT [facility] [address] [phone] Any Joiner MD [address] [place] [address] *-*INCOMING RECORDS*-* 01/19/2025 3:00 PM CDT Orders Only [facility] Pulmonary Function Testing [address] [phone] 01/19/2025 4:00 PM CDT Office Visit [facility] [address] [phone] Any Joiner MD 420 [facility] 276 [place] [address] 06/01/2025 11:15 AM CDT Appointment [facility] Imaging [address] [place] [address] [place] [phone] Robin Zepeda MD [address] [place] [address] 424575 06/04/2025 11:00 AM CDT Office Visit [facility] Neurosurgery [address] 3rd [place] [phone] Robin Zepeda MD [address] [place] [address] Usha Smion APRN RADIOLOGY TRANSPORTER [address] [place] [address] documented as of this encounter Visit Diagnoses Not on filedocumented in this encounter Additional Health Concerns Infection Onset Date Last Indicated Resolved Time Rule Out COVID-19 09/13/2024 09/13/2024 09/13/2024 12:31 PM COMPUTER TECHNOLOGY TRAINER Assessment Noted Time PHQ-9 Depression Total Score: 0 06/23/20 21 4:11 PM CDT documented as of this encounter Care Teams Pumper Gauger Apprentice Relationship Specialty Start Date End Date Winston Villatoro OD [facility] [place] [address] [place] [address] PCP - Ophthalmology Ophthalmology 02/11/13 Denise Woodson APRN RADIOLOGY TRANSPORTER [address] [place] [address] PCP - General Family Practice 09/21/20 Denise Woodson APRN RADIOLOGY TRANSPORTER [address] [place] [address] Assigned PCP 07/17/20 Uhsa Simon APRN RADIOLOGY TRANSPORTER [address] 557385 Nurse Practitioner Neurological Surgery 01/24/24 Dangelo Salinas MD [address] [place], [place] [phone] Neurology 01/27/24 Usha Simon APRN RADIOLOGY TRANSPORTER [address] 646965 Assigned Neuroscience Provider 02/06/24 03/07/24 Anastasia Stearns, RN Lead Superintendent Concrete Mixing Plant 02/06/24 Germaine Aleman, W Community Health Worker Primary Care - CC 02/18/24 Robin Zepeda MD [address] 759255 Assigned Neuroscience Provider 03/08/24 05/07/24 Lisa Zambrano MD [address] [place] [address] Assigned Heart and Vascular Provider 05/08/24 07/07/24 Raul Hoyos MD 909 [facility]121[address] [place] [address] Assigned Neuroscience Provider 05/08/24 07/07/24 Joya Lira [facility] [address] [place] [address] Pharmacist Pharmacist 05/25/24 Joya Lira [facility] [address] [place], [place] [address] Assigned MTM Pharmacist 06/08/24 Fabi Coates MD [address] [place] [address] 75 [place] [address] Genetics, Clinical 06/18/24 Robin Zepeda MD [address] [place] [address], [place] 703165 Assigned Neuroscience Provider 07/08/24 08/07/24 Danna Cardenas PA-C [address] [place] [address] Assigned Heart and Vascular Provider 07/08/24 Felicita Desai RN Lead Superintendent Concrete Mixing Plant 07/14/24 07/28/24 Arthur Salas [facility] [address] [address] Assigned Behavioral Health Provider 08/08/24 Randy Maradiaga DO [address] [place] [address] Assigned Neuroscience Provider 08/08/24 Tete Wang MD [facility]0 [place] [address] Genetics, Clinical 10/30/24 documented as of this encounter
--- OUTSIDE RECORDS SUMMARY | 2024-11-08 11:19 | XMS_ITS | Encounter Summary ---
Author Organization [place] Address [address] [place] [address]381 Care Team Providers Care Internet Architect Name Role Phone Winston Villatoro OD Unavailable [phone] Denise Woodson APRN ARTIFICIAL INTELLIGENCE SPECIALIST Unavailable [phone] Denise Woodson APRN ARTIFICIAL INTELLIGENCE SPECIALIST Primary Care Provider Usha Simon APRN ARTIFICIAL INTELLIGENCE SPECIALIST Unavailable + [phone] Dangelo Salinas MD Unavailable Anastasia Stearns RN Unavailable [phone] Germaine Aleman [facility] Unavailable [phone] Joya Lira [facility] Unavailable [phone] Joya Lira [facility] Unavailable [phone] Fabi Coates MD Unavailable [phone] Danna Cardenas PA-C Unavailable [phone] Arthur Salas SUPERVISOR BOAT OUTFITTING Unavailable [phone] Randy Maradiaga DO Unavailable + Tete Wang MD Unavailable [phone] Encounter Details Date Type Department Care Team (Late st Contact Info) Description 08/14/2024 [facility] Neurology [address] [place] [address] Laronfortunato Randy Yobany, DO 909 [place] [address] Social History Tobacco Use Types [...] How often do you attend worship or faith serv ices? 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 [place] [phone] Lisa Zambrano MD [address] [place] [address] 12/03/2024 7:00 AM CDT Virtual Visit [facility] Neurology [address] [phone] Randy Maradiaga [address] [phone] 12/09/2024 12:45 PM CDT Office Visit [facility] Pediatric Specialty Clinic [address] [place] [address] [phone] Tete Wang MD [address] [place] [address] 12/09/2024 1:15 PM CDT Office Visit [facility] Pediatric Specialty Clinic [address] [place] [address] [phone] Tete Wang MD [address] [place] [address] 064614 12/15/2024 3:00 PM CDT Virtual Visit [facility] [address] [place] [phone] Denise Woodson APRN ARTIFICIAL INTELLIGENCE SPECIALIST [address] [place] [address] 01/19/2025 PRE VISIT [facility] Lung Science [address] [phone] Any Joiner MD [address] [place] [address] 597355 *-*INCOMING RECORDS*-* 01/19/2025 3:00 PM CDT Orders Only [facility] Pulmonary Function Testing [address] [phone] 01/19/2025 4:00 PM CDT Office Visit [facility] Lung Science [address] [phone] Any Joiner MD [address] [place] [address] 001305 06/01/2025 11:15 AM CDT Appointment [facility] Imaging [address] [facility] [address] [place] [phone] Robin Zepeda MD [address] [place] [address] 136305 06/04/2025 11:00 AM CDT Office Visit [facility] [address] [phone] Robin Zepeda MD [address] [place] [address] 871735 Usha Simon APRN [address] 928465 documented as of this encounter Visit Diagnoses Not on filedocumented in this encounter Additional Health Concerns Infection Onset Date Last Indicated Resolved Time Rule Out COVID-19 09/13/2024 09/13/2024 09/13/2024 12:31 PM ENGINEERING CLERK Assessment Noted Time PHQ-9 Depression Total Score: 5 08/03/20 24 12:49 PM ENGINEERING CLERK documented as of this encounter Care Teams Internet Architect Relationship Specialty Start Date End Date Winston Villatoro OD [facility] [place] [address] [place] [address] PCP - Ophthalmology Ophthalmology 02/11/13 Denise Woodson APRN ARTIFICIAL INTELLIGENCE SPECIALIST [address] [place] [address] PCP - General Family Practice 09/21/20 Denise Woodson APRN ARTIFICIAL INTELLIGENCE SPECIALIST [address] [place] [address] Assigned PCP 07/17/20 Usha Simon APRN ARTIFICIAL INTELLIGENCE SPECIALIST 909 [facility]2121[place], [place] [address] Nurse Practitioner Neurological Surgery 01/24/24 Dangelo Salinas MD [address] [place], [place] [address] Neurology 01/27/24 Anastasia Stearns, RN Lead Cutter Aluminum Sheet 02/06/24 Germaine Aleman, CHW Community Health Worker Primary Care - CC 02/18/24 Joya Lira [facility] [address] [place], [place] [phone] Pharmacist Pharmacist 05/25/24 Soraya Joya [facility] [address] [place] [address] Assigned MTM Pharmacist 06/08/24 Fabi Coates MD 420 [facility] 75 [place] [address] Genetics, Clinical 06/18/24 Danna Cardenas PA-C 6405 [place] [address] Assigned Heart and Vascular Provider 07/08/24 Arthur Salas SUPERVISOR BOAT OUTFITTING [address] [place] [address] Assigned Behavioral Health Provider 08/08/24 Randy Maradiaga DO 909 [place], [place] 247365 Assigned Neuroscience Provider 08/08/24 Tete Wang MD [address]50 [place], [place] 129974 Genetics, Clinical 10/30/24 documented as of this encounter
--- OUTSIDE RECORDS SUMMARY | 2024-11-08 11:19 | XMS_ITS | Encounter Summary ---
Author Organization [place] Address [address] [place] [address] Care Team Providers Care Respiratory Scientist Name Role Phone Winston Villatoro OD Unavailable [phone] Denise Woodson APRN OPERATIONS PROGRAM MANAGER Unavailable [phone] Denise Woodson APRN OPERATIONS PROGRAM MANAGER Primary Care Provider Usha Simon APRN [facility] Unavailable + [phone] Dangelo Salinas MD Unavailable Anastasia Stearns RN Unavailable [phone] Germaine Aleman [facility] Unavailable [phone] Joya Lira [facility] Unavailable [phone] Joya Lira [facility] Unavailable [phone] Fabi Coates MD Unavailable [phone] Danna CardenasC Unavailable [phone] Arthur Salas PHARM SPEC Unavailable [phone] Randy Maradiaga DO Unavailable + Encounter Details [...] Never 09/16/2024 How often do you attend confucianist or religion serv ices? Never 09/16/2024 Do you belong [...] Answer Date Recorded PHQ-2 Score 0 09/18/2024 [facility] of Occupat ional Health - Occupational Stress [...] file Legal Sex Female 4:05 AM JAVA TECH LEAD Gender Identity Not on file Sexual [...] st Contact Info) Description 11/17/2024 2:30 PM JAVA TECH LEAD Virtual Visit [facility] [address] [facility] [place] [address] Denise Woodson APRN OPERATIONS PROGRAM MANAGER [address] [place] [address] 12/01/2024 4:00 PM CDT Virtual Visit [facility] Vascular Clinic Kate [address] [phone] Lisa Zambrano MD 6405 [facility] [address] [place] 500465 12/03/2024 7:00 AM CDT Virtual Visit [facility] Neurology [address] 3rd [place] [phone] Randy Maradiaga DO [address] [place] [address] 539525 12/09/2024 12:45 PM CDT Office Visit [facility] Pediatric Specialty Clinic [address] [place] [address] [phone] Tete Wang MD [address] [place] [address] 01008454 12/09/2024 1:15 PM CDT Office Visit [facility] Pediatric Specialty Clinic [address] [place] [address] [phone] Tete Wang MD [address] [place] [address] 702794 12/15/2024 3:00 PM CDT Virtual Visit [facility] [address] [place] [address] Denise Woodson APRN [facility] [address] [place], [place] 6706268 01/19/2025 PRE VISIT [facility] for Lung Science and Health [address] [phone] Any Joiner MD [address] 638285 *-*INCOMING RECORDS*-* 01/19/2025 3:00 PM CDT Orders Only [facility] Pulmonary Function Testing [address] [phone] 01/19/2025 4:00 PM CDT Office Visit [facility] for [facility] Health Clinic [address] [phone] Any Joiner MD 420 [facility] 276 [place], [place] 838575 06/01/2025 11:15 AM CDT Appointment [facility] Imaging [address] [place] [address] [place] [phone] Robin Zepeda MD [address] [place] [address] 383805 06/04/2025 11:00 AM CDT Office Visit [facility] Neurosurgery Clinic [address] [phone] Robin Zepeda MD [address] [place] [address] 905105 Usha Simon APRN [address] 224715 documented as of this encounter Visit Diagnoses Not on filedocumented in this encounter Additional Health Concerns Assessment Noted Time PHQ-9 Depression Total Score: 0 09/18/19 25 12:46 PM JAVA TECH LEAD documented as of this encounter Care Teams Respiratory Scientist Relationship Specialty Start Date End Date Winston Villatoro OD [facility] [place] [facility] [address] [place] [address] PCP - Ophthalmology Ophthalmology 02/11/13 Denise Woodson APRN OPERATIONS PROGRAM MANAGER [address] [place] [address] PCP - General Family Practice 09/21/20 Denise Woodson APRN OPERATIONS PROGRAM MANAGER [address] [place] [address] Assigned PCP 07/17/20 Usha Simon APRN OPERATIONS PROGRAM MANAGER 909 [facility]2121[place], [place] 0[address]25 Nurse Practitioner Neurological Surgery 01/24/24 Dangelo Salinas MD [address] [place], [place] [address] Neurology 01/27/24 Anastasia Stearns, RN Lead Telephone Service Representative 02/06/24 Germaine Aleman, W Community Health Worker Primary Care - CC 02/18/24 Joya Lira [facility] [address] [place] [address] Pharmacist Pharmacist 05/25/24 Joya Lira [facility] [address] [place] [address] Assigned MTM Pharmacist 06/08/24 Fabi Coates MD 420 [facility] 75 [place] [address] Genetics, Clinical 06/18/24 Danna Cardenas, PANilesC 6405 [place] [address] Assigned Heart and Vascular Provider 07/08/24 Arthur Salas LICSW [address] [address] Assigned Behavioral Health Provider 08/08/24 Randy Maradiaga DO [address] [place] [address] Assigned Neuroscience Provider 08/08/24 documented as of this encounter
--- OUTSIDE RECORDS SUMMARY | 2024-11-08 11:19 | XMS_ITS | Encounter Summary ---
Author Organization [facility] Address [address] [place] [address] Care Team Providers Care Recorder Helper Gravity Prospecting Name Role Phone Winston Villatoro OD Unavailable [phone] Denise Woodson APRN ALGEBRA TEACHER Unavailable [phone] Denise Woodson APRN ALGEBRA TEACHER Primary Care Provider Usha Simon APRN ALGEBRA TEACHER Unavailable + [phone] Dangelo Salinas MD Unavailable Anastasia Stearns RN Unavailable Germaine Aleman [place] Unavailable [phone] Joya Lira [facility] Unavailable +[phone] Joya Lira [facility] Unavailable [phone] Fabi Coates MD Unavailable [phone] Danna Cardenas PA-C Unavailable [phone] Arthur Salas PUBLIC MESSAGE SERVICE SUPERVISOR Unavailable [phone] Randy Maradiaga DO Unavailable + Tete Wang MD Unavailable +[phone] Encounter Details Date Type Department Care Team (Late st Contact Info) Description 10/05/2024 Ajay Calhoun [facility] Care [facility] [address] [place] [phone] Ash Germaine C, [place] Social History Tobacco Use Types Packs/Day Years [...] Never 09/16/2024 How often do you attend gnosticism or latter day serv ices? 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 [place] [phone] Lisa Zambrano MD [address] [place] [address] 12/03/2024 7:00 AM CDT Virtual Visit [facility] Neurology [address] [phone] Randy Maradiaga, [address] [address] 12/09/2024 12:45 PM CDT Office Visit [facility] [address] [place] [address] [phone] Tete Wang MD [address] [place] [address] 12/09/2024 1:15 PM CDT Office Visit [facility] Specialty Clinic [address] [place] [address] [phone] Tete Wang MD [address] [place] [address] 12/15/2024 3:00 PM CDT Virtual Visit [facility] [address] [place] [phone] Denise Woodson APRN [facility] [address] [place], [place] 1582568 01/19/2025 PRE VISIT [facility] Lung Science [address] [phone] Any Joiner MD [address] [place] [address] 835325 *-*INCOMING RECORDS*-* 01/19/2025 3:00 PM CDT Orders Only [facility] Pulmonary Function Testing [address] [phone] 01/19/2025 4:00 PM CDT Office Visit [address] [phone] Any Joiner MD [address] [place] [address] 354575 06/01/2025 11:15 AM CDT Appointment [facility] [address] [facility] [address] [place] [phone] Robin Zepeda MD [address] [place] [address] 903115 06/04/2025 11:00 AM CDT Office Visit [facility] Neurosurgery [address] [phone] Robin Zepeda MD [address] [place] [address] Usha Simon APRN [address] 123395 documented as of this encounter Visit Diagnoses Not on filedocumented in this encounter Additional Health Concerns Assessment Noted Time PHQ-9 Depression Total Score: 0 09/18/19 25 12:46 PM MARKETING PLANNER documented as of this encounter Care Teams Recorder Helper Gravity Prospecting Relationship Specialty Start Date End Date Winston Villatoro OD [facility] [address] [place] [address] PCP - Ophthalmology Ophthalmology 02/11/13 Denise Woodson APRN ALGEBRA TEACHER [address] [place] [address] PCP - General Family Practice 09/21/20 Denise Woodson APRN ALGEBRA TEACHER [address] [place] [address] Assigned PCP 07/17/20 Usha Simon APRN ALGEBRA TEACHER 9 [facility] [address] Nurse Practitioner Neurological Surgery 01/24/24 Dangelo Salinas MD [address] [place], [place] [phone] Neurology 01/27/24 Anastasia Stearns, RN Lead Hydrometer Tester 02/06/24 Germaine Aleman, W Community Health Worker Primary Care - CC 02/18/24 Joya Lira RPH [address] [address] Pharmacist Pharmacist 05/25/24 Joya Lira RPH [address] [place] [address] Assigned MTM Pharmacist 06/08/24 Fabi Coates MD 420 [facility] 75 [place] [address] Genetics, Clinical 06/18/24 Danna Cardenas PA-C 6405 [place] [address] Assigned Heart and Vascular Provider 07/08/24 Arthur Salas [facility] [address] [place] [address] Assigned Behavioral Health Provider 08/08/24 Randy Maradiaga DO 909 [place], [place] 669935 Assigned Neuroscience Provider 08/08/24 Tete Wang MD 2450 [place], [place] [address] Genetics, Clinical 10/30/24 documented as of this encounter
--- OUTSIDE RECORDS SUMMARY | 2024-11-08 11:19 | XMS_ITS | Encounter Summary ---
Author Organization [employer] Address [address] [place] [address] 86261 Care Team Providers Care Community Development Worker Name Role Phone Winston Villatoro OD Unavailable [phone] Denise Woodson APRN CRTS Unavailable [phone] Denise Woodson APRN CRTS Primary Care Provider Usha Simon APRN CRTS Unavailable Dangelo Salinas MD Unavailable Anastasia Stearns RN Unavailable Germaine Aleman [facility] Unavailable [phone] Joya Lira [facility] Unavailable [phone] Joya Lira [facility] Unavailable [phone] Fabi Coates MD Unavailable [phone] Danna CardenasC Unavailable [phone] Arthur Salas NEUROLOGY HOSPITALIST Unavailable [phone] Randy Maradiaga DO Unavailable + Encounter Details Date Type Department Care Team (Late st Contact Info) Description 09/30/2024 [facility] [address] [phone] None Social History Tobacco Use [...] How often do you attend restoration or hoahaoism serv ices? 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 Not on file Not on file Not on file Not on file Not on file Not on file documented as of this encounter Miscellaneous Notes * Telephone Encounter - Tootie Santana - 09/30/2024 9:27 AM CST Patient confirmed scheduled appointment: Date: 01/19/2025 Time: 4:00PM Visit type: SALMAULM REFERRAL Provider: ALBERT Location: [facility] Testing/imaging: N/A Additional notes: N/A TH SERVICES RN documented in this encounter Plan of Treatment Upcoming Encounters Date Type Department Care Team (Late st Contact Info) Description 11/17/2024 2:30 PM HEALTH SERVICES RN Virtual Visit [facility] [address] [place] [phone] Chintan Denise RN [facility] [address] [place], [place] 0287368 12/01/2024 4:00 PM CDT Virtual Visit [facility] Vascular Clinic [place] [address] [place] [phone] Lisa Zambrano MD [address] [place] 9[address]005 12/03/2024 7:00 AM CDT Virtual Visit [facility] Neurology [address] [phone] Randy Maradiaga, [address] [address] 12/09/2024 12:45 PM CDT Office Visit [facility] Pediatric Specialty Clinic [address] [place] [address] [phone] Tete Wang MD [address] [place] [address] 254504 12/09/2024 1:15 PM CDT Office Visit [facility] [address] [place] [phone] Tete Wang MD [address] [place] [address] 448624 12/15/2024 3:00 PM CDT Virtual Visit [facility] [address] [place] [phone] Denise Woodson APRN CRTS [address] [place], [place] 4551668 01/19/2025 PRE VISIT [facility] Lung Science [address] [phone] Any Joiner MD [address] [place] [address] 001085 *-*INCOMING RECORDS*-* 01/19/2025 3:00 PM CDT Orders Only [facility] Pulmonary Function Testing [address] [phone] 01/19/2025 4:00 PM CDT Office Visit [facility] Lung Science [address] [phone] Any Joiner MD [address] [place] [address] 551595 06/01/2025 11:15 AM CDT Appointment [facility] Imaging [address] [facility] [address] [place] [address] Robin Zepeda MD [address] [place] [address] 06/04/2025 11:00 AM CDT Office Visit [address] [phone] Robin Zepeda MD [address] [place] [address] 026535 Usha Simon APRN CRTS [address] [address] documented as of this encounter Visit Diagnoses Not on filedocumented in this encounter Additional Health Concerns Assessment Noted Time PHQ-9 Depression Total Score: 0 09/18/19 25 12:46 PM HEALTH SERVICES RN documented as of this encounter Care Teams Community Development Worker Relationship Specialty Start Date End Date Winston Villatoro OD [facility] [place] [address] [place] [address] PCP - Ophthalmology Ophthalmology 02/11/13 Denise Woodson APRN CRTS [address] [facility] [place] [address] PCP - General Family Practice 09/21/20 Denise Woodson APRN CRTS [address] [place] [address] Assigned PCP 07/17/20 Usha Simon APRN CRTS [address] [address] Nurse Practitioner Neurological Surgery 01/24/24 Dangelo Salinas MD [address] [place] [address] Neurology 01/27/24 Anastasia Stearns, RN Lead Photogrammetric Engineer 02/06/24 Germaine Aleman, CHW Community Health Worker Primary Care - CC 02/18/24 Joya Lira RPH [address] [place], [place] [phone] Pharmacist Pharmacist 05/25/24 Joya Lira RPH [address] [place] [address] Assigned MTM Pharmacist 06/08/24 Fabi Coates MD 420 [facility] 75 [place], [place] 637465 Genetics, Clinical 06/18/24 Danna Cardenas PA-C 6405 [place] [address] Assigned Heart and Vascular Provider 07/08/24 Arthur Salas LICSW [address] [phone] Assigned Behavioral Health Provider 08/08/24 Randy Maradiaga DO 909 [place], [place] 076545 Assigned Neuroscience Provider 08/08/24 documented as of this encounter
--- OUTSIDE RECORDS SUMMARY | 2024-11-08 11:19 | XMS_ITS | Encounter Summary ---
Author Organization [facility] Address [address] [place] [address] Care Team Providers Care Personal Vehicle Advisor Name Role Phone Winston Villatoro OD Unavailable [phone] Denise Woodson APRN SLITTER PROCESSED FILM Unavailable [phone] Denise Woodson APRN SLITTER PROCESSED FILM Primary Care Provider Usha Simon APRN SLITTER PROCESSED FILM Unavailable + [phone] Dangelo Salinas MD Unavailable Anastasia Stearns RN Unavailable Germaine Aleman CH Unavailable [phone] Robin Zepeda MD Unavailable Lisa Zambrano MD Unavailable Raul Hoyos MD Unavailable Joya Lira RP Unavailable [phone] Joya Lira RPJoleen Unavailable [phone] Fabi Coates MD Unavailable [phone] Robin Zepeda MD Unavailable Danna CardenasC Unavailable [phone] Felicita Desai RN Unavailable Unavailab Arthur Rios Unavailable [phone] Randy Maradiaga DO Unavailable + Tete Wang MD Unavailable [phone] Reason for Visit * Reason Onset Date Comments Call Back 03/09/2024 Follow up appoin tment Encounter Details Date Type Department Care Team (Late st Contact Info) Description 03/09/[address] [facility] Neurology Clinic [address] 3rd [place] [address] Raul Hoyos MD [address] [place] [address] [id number] [place] [address] Call Back (Follow up appointment [...] How often do you attend sabianism or judaism serv ices? 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 Germaine's call back #[phone] or she states may call patient to schedule if appropriate Action Taken: Message routed to: [facility] Neurology Travel Screening: Not Applicable documented in this encounter Plan of Treatment Upcoming Encounters Date Type Department Care Team (Late st Contact Info) Description 11/17/2024 2:30 PM PRODUCT SPECIALIST Virtual Visit [facility] [address] [place] [phone] Denise Woodson APRN SLITTER PROCESSED FILM [address] [place], [place] 2128568 12/01/2024 4:00 PM CDT Virtual Visit [facility] Vascular Clinic [place] [address] [place] [phone] Lisa Zambrano MD [address] [place] 180795 12/03/2024 7:00 AM CDT Virtual Visit [facility] Neurology Clinic [address] [phone] Randy Maradiaga DO [address] [place] [address] 294255 12/09/2024 12:45 PM CDT Office Visit [facility] Pediatric Specialty Clinic [address] [place] [phone] Tete Wang MD [address] [place] [address] 633004 12/09/2024 1:15 PM CDT Office Visit [facility] Pediatric Specialty Clinic [address] [place] [address] [phone] Tete Wang MD [address] [place] [address] 96904454 12/15/2024 3:00 PM CDT Virtual Visit [facility] [address] [place] [phone] Denise Woodson APRN [facility] [address] [place] [address] 01/19/2025 PRE VISIT [facility] Clinic [place] 909 [place] [address] Any Joiner MD [address] [place] [address] 505515 *-*INCOMING RECORDS*-* 01/19/2025 3:[address] PM [address]T Orders Only [facility] Pulmonary Function Testing [address] [place] [phone] 01/19/2025 4:00 PM CDT Office Visit [facility] Clinic [address] [phone] Any Joiner MD 420 [facility] 276 [place], [place] 318065 06/01/2025 11:15 AM CDT Appointment [facility] [address] [place] [address] Robin Zepeda MD [address] [place] [address] 041605 06/04/2025 11:00 AM CDT Office Visit [facility] Neurosurgery Clinic [address] [phone] Robin Zepeda MD [address] [place] [address] 947215 Usha Simon APRN [address] [phone] documented as of this encounter Visit Diagnoses Not on filedocumented in this encounter Additional Health Concerns Infection Onset Date Last Indicated Resolved Time Rule Out COVID-19 09/13/2024 09/13/2024 09/13/2024 12:31 PM PRODUCT SPECIALIST Assessment Noted Time PHQ-9 Depression Total Score: 16 024 3:27 PM CDT documented as of this encounter Care Teams Personal Vehicle Advisor Relationship Specialty Start Date End Date Winston Villatoro OD [facility] [place] [address] [place] [address] PCP - Ophthalmology Ophthalmology 02/11/13 Denise Woodson APRN SLITTER PROCESSED FILM [address] [address] [place] [id number] PCP - General Family Practice 09/21/20 Denise Woodson APRN SLITTER PROCESSED FILM [address] [place] [address] Assigned PCP 07/17/20 Usha Simon APRN SLITTER PROCESSED FILM [address] [place] [address] [phone] Nurse Practitioner Neurological Surgery 01/24/24 Dangelo Salinas MD [address] [place], [place] [phone] Neurology 01/27/24 Anastasia Stearns, RN Lead Tobacco Scrap Sifter 02/06/24 Germaine [place], W Community Health Worker Primary Care - CC 02/18/24 Robin Zepeda MD [address] 072075 Assigned Neuroscience Provider 03/08/24 05/07/24 Lisa Zambrano MD [address] [place] 178605 Assigned Heart and Vascular Provider 05/08/24 07/07/24 Raul Hoyos MD [address] [place] [address] [phone] Assigned Neuroscience Provider 05/08/24 07/07/24 Joya Lira [facility] [address] [place] [address] Pharmacist Pharmacist 05/25/24 Joya Lira [facility] [address] [place] [address] Assigned MTM Pharmacist 06/08/24 Fabi Coates MD [address] [place] [address] 75 [place] [address] Genetics, Clinical 06/18/24 Robin Zepeda MD [address] [place], [place] [address] [address] Assigned Neuroscience Provider 07/08/24 08/07/24 Danna Cardenas PA-C [address] [place] [address] Assigned Heart and Vascular Provider 07/08/24 Felicita Desai RN Lead Tobacco Scrap Sifter 07/14/24 07/28/24 Arthur Salas, [facility] [address] [place] [address] Assigned Behavioral Health Provider 08/08/24 Randy Maradiaga DO [address] [place] [address] Assigned Neuroscience Provider 08/08/24 Tete Wang MD [address] [place] [address], [place] [address] Genetics, Clinical 10/30/24 documented as of this encounter
--- OUTSIDE RECORDS SUMMARY | 2024-11-08 11:19 | XMS_ITS | Encounter Summary ---
Author Organization [facility] Address [address] [place] [address] Care Team Providers Care Composite Layup Worker Name Role Phone Winston Villatoro OD Unavailable [phone] Denise Woodson APRN PRODUCTION LINE WELDER Unavailable [phone] Denise Woodson APRN PRODUCTION LINE WELDER Primary Care Provider Usha Simon APRN PRODUCTION LINE WELDER Unavailable Dangelo Salinas MD Unavailable Anastasia Stearns RN Unavailable [phone] Germaine Aleman [facility] Unavailable Joya Lira [facility] Unavailable Joya Lira [facility] Unavailable Fabi Coates MD Unavailable [phone] Danna CardenasC Unavailable [phone] Arthur Salas EFFICIENCY ANALYST Unavailable [phone] Randy Maradiaga DO Unavailable + Encounter Details Date Type Department Care Team (Late st Contact Info) Description 09/30/2024 [facility] Health [address] [address] Any Joiner MD 420 [facility] 276 [place] [address] Bronchopulmonary dysplasia (H) (Primary Dx) Social History [...] How often do you attend scientology or temple serv ices? 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 [place] [phone] Lisa Zambrano MD [address] [place] [address] 12/03/2024 7:00 AM CDT Virtual Visit [facility] Neurology [address] [phone] Randy Maradiaga, [address] 239[address] 12/09/2024 12:45 PM CDT Office Visit [facility] Pediatric Specialty Clinic [address] [place] [address] [phone] Tete Wang MD [address] [place] [address] 12/09/2024 1:15 PM CDT Office Visit [facility] Pediatric Specialty Clinic [address] [place] [address] [phone] Tete Wang MD [address] [place] [address] 992754 12/15/2024 3:00 PM CDT Virtual Visit [facility] [address] [place] [phone] Denise Woodson APRN PRODUCTION LINE WELDER [address] [place] [address] 01/19/2025 PRE VISIT [facility] Science [address] [phone] Any Joiner MD [address] [place] [address] 543215 *-*INCOMING RECORDS*-* 01/19/2025 3:00 PM CDT Orders Only [facility] Pulmonary Function Testing [address] [phone] 01/19/2025 4:00 PM CDT Office Visit [address] [phone] Any Joiner MD [address] [place] [address] 748095 06/01/2025 11:15 AM CDT Appointment [facility] Imaging [address] [facility] [address] [place] [address] Robin Zepeda MD [address] [place] [address] 275385 06/04/2025 11:00 AM CDT Office Visit [address] [phone] Robin Zepeda MD [address] [place] [address] [phone] Usha Simon APRN PRODUCTION LINE WELDER [address] [place] [address] 066365 Scheduled Orders Name Type Priority Associated Diagnoses Orde r Schedule Pulmonary function test PFT Routine Bronchopulmonary dysplasia (H) Expected: 01/19/2025, Expires: 03/29/2025 documented as of this encounter Visit Diagnoses Diagnosis Bronchopulmonary dysplasia (H)- Primary Chronic respiratory disease arising in the period documented in this encounter Additional Health Concerns Assessment Noted Time PHQ-9 Depression Total Score: 0 09/18/19 25 12:46 PM FLAVORER documented as of this encounter Care Teams Composite Layup Worker Relationship Specialty Start Date End Date Winston [facility] [place] [address] [place] [address] PCP - Ophthalmology Ophthalmology 02/11/13 Denise Woodson APRN PRODUCTION LINE WELDER [address] [place] [address] PCP - General Family Practice 09/21/20 Denise Woodson APRN PRODUCTION LINE WELDER [address] [place] [address] Assigned PCP 07/17/20 Usha Simon APRN PRODUCTION LINE WELDER 909 [facility]121[place], [place] [address] Nurse Practitioner Neurological Surgery 01/24/24 Dangelo Salinas MD [address] [place] [address] Neurology 01/27/24 Anastasia Stearns, RN Lead Pet Resort Concierge 02/06/24 Germaine Aleman, CHW Community Health Worker Primary Care - CC 02/18/24 Joya Lira RPH [address] [place], [place] [phone] Pharmacist Pharmacist 05/25/24 Soraya JoyaPAZ demarco [address] [place] [address] Assigned MTM Pharmacist 06/08/24 Fabi Coates MD [address] [place] [address] 75 [place], [place] [phone] Genetics, Clinical 06/18/24 Danna Cardenas PA-C 6405 [place] [address] Assigned Heart and Vascular Provider 07/08/24 Arthur Salas [facility] [address] [place] [address] Assigned Behavioral Health Provider 08/08/24 Randy Maradiaga DO 909 [place], [place] 249695 Assigned Neuroscience Provider 08/08/24 documented as of this encounter
--- OUTSIDE RECORDS SUMMARY | 2024-11-08 11:19 | XMS_ITS | Encounter Summary ---
Author Organization [facility] Address [address] [place] [address] Care Team Providers Care Regional Sales Leader Name Role Phone Winston Villatoro OD Unavailable [phone] Denise Woodson APRN CENTRIFUGAL MACHINE TENDER Unavailable [phone] Denise Woodson APRN CENTRIFUGAL MACHINE TENDER Primary Care Provider Usha Simon APRN CENTRIFUGAL MACHINE TENDER Unavailable Dangelo Salinas MD Unavailable Usha Simon APRN CENTRIFUGAL MACHINE TENDER Unavailable Anastasia Stearns RN Unavailable Germaine Aleman CH Unavailable [phone] Robin Zepeda MD Unavailable Lisa Zambrano MD Unavailable Raul Hoyos MD Unavailable Joya Lira RP Unavailable [phone] Joya Lira RPJoleen Unavailable [phone] Fabi Coates MD Unavailable [phone] Robin Zepeda MD Unavailable Danna Cardenas PA-C Unavailable [phone] Felicita Desai RN Unavailable Unavailab Arthur Rios [facility] Unavailable [phone] Randy Maradiaga DO Unavailable + Tete Wang MD Unavailable [phone] Reason for Visit * Reason Onset Date Comments Appointment 01/23/2024 Referral-Stroke hospital follow up Encounter Details Date Type Department Care Team (Late st Contact Info) Description 01/23/2024 [facility] Neurology Clinic [address] 3rd [place] [address] None Appointment (Referral-Stroke hospital follow [...] on file Legal Sex Female 4:05 AM TRUCK CATERER Gender Identity Not on file Sexual Orientation Not on file 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 Delisa Manuel Ur 5 Med Surg Diagnosis and/or Symptoms: Stroke Please review referral for Stroke as no HFU orders are entered for Stroke follow up. Patient discharged on 01/22/24 from [facility] and is now in Acute Rehab Unit. Action Taken: Message routed to: [facility] Neurology Travel Screening: Not Applicable documented in this encounter Plan of Treatment Upcoming Encounters Date Type Department Care Team (Late st Contact Info) Description 11/17/2024 2:30 PM TRUCK CATERER Virtual Visit [facility] [address] [place] [phone] Denise Woodson SKIVER COUNTERAda HUBBARD [address] [place] [address] 12/01/2024 4:00 PM CDT Virtual Visit [facility] V[facility] [place] [address] [place] [address] Lisa Zambrano MD [address] [place] 947165 12/03/2024 7:00 AM CDT Virtual Visit [facility] Neurology Clinic [address] [phone] Randy Maradiaga, [address] [address] 12/09/2024 12:45 PM CDT Office Visit [facility] [address] [place] [address] [phone] Tete Wang MD [address] [place] [address] 538514 12/09/2024 1:15 PM CDT Office Visit [facility] [address] [place] [address] [phone] Tete Wang MD [address] [place] [address] 348794 12/15/2024 3:00 PM CDT [facility] [address] [place] [phone] Denise Woodson APRN CENTRIFUGAL MACHINE TENDER [address] [place], [place] 4435168 01/19/2025 PRE VISIT [facility] Lung Science [address] [phone] Any Joiner MD [address] [place] [address] 312025 *-*INCOMING RECORDS*-* 01/19/2025 3:00 PM CDT Orders Only [facility] Pulmonary Function Testing [address] [phone] 01/19/2025 4:00 PM CDT Office Visit [facility] Lung Science [address] [phone] Any Joiner MD [address] [place] [address] 676475 06/01/2025 11:[address] [facility] Imaging [address] [facility] [address] [place] [phone] Robin Zepeda MD [address] [place] [address] 166845 06/04/2025 11:00 AM CDT Office Visit [address] [phone] Robin Zepeda MD [address] [place] [address] 205185 Usha Simon APRN CENTRIFUGAL MACHINE TENDER [address] [place] [address] documented as of this encounter Visit Diagnoses Not on filedocumented in this encounter Additional Health Concerns Infection Onset Date Last Indicated Resolved Time Rule Out COVID-19 09/13/2024 09/13/2024 09/13/2024 12:31 PM TRUCK CATERER Assessment Noted Time PHQ-9 Depression Total Score: 0 06/23/20 21 4:11 PM CDT documented as of this encounter Care Teams Regional Sales Leader Relationship Specialty Start Date End Date Winston Villatoro OD [facility] [place] [address] [place] [address] PCP - Ophthalmology Ophthalmology 02/11/13 Denise Woodson APRN CENTRIFUGAL MACHINE TENDER [address] [place] [address] PCP - General Family Practice 09/21/20 Denise Woodson APRN CENTRIFUGAL MACHINE TENDER [address] [address] [facility] [place] [address] Assigned PCP 07/17/20 Usha Simon APRN CENTRIFUGAL MACHINE TENDER [address] [place] [address] Nurse Practitioner Neurological Surgery 01/24/24 Dangelo Salinas MD [address] [place] [address] Neurology 01/27/24 Usha Simon APRN CENTRIFUGAL MACHINE TENDER [address] [address] Assigned Neuroscience Provider 02/06/24 03/07/24 Anastasia Stearns, RN Lead Paper Sheeter 02/06/24 Germaine Aleman, W Community Health Worker Primary Care - CC 02/18/24 Robin Zepeda MD [address] [address] Assigned Neuroscience Provider 03/08/24 05/07/24 Lisa Zambrano MD [address] [facility] [address] [place] [address] Assigned Heart and Vascular Provider 05/08/24 07/07/24 Raul Hoyos MD [address] [place] [address] Assigned Neuroscience Provider 05/08/24 07/07/24 Joya Lira Joleen [address] [address] Pharmacist Pharmacist 05/25/24 Joya Lira Joleen [address] [place] [address] Assigned MTM Pharmacist 06/08/24 Fabi Coates MD [address] [facility] [address] [place] [address] Genetics, Clinical 06/18/24 Robin Zepeda MD [address] [address] Assigned Neuroscience Provider 07/08/24 08/07/24 Danna Cardenas PA-C 6405 [place] [address] Assigned Heart and Vascular Provider 07/08/24 Felicita Desai, RN Lead Paper Sheeter 07/14/24 07/28/24 Arthur Salas [facility] [address] [place] [address] Assigned Behavioral Health Provider 08/08/24 Randy Maradiaga DO 909 [place] [address] Assigned Neuroscience Provider 08/08/24 Tete Wang MD [address] [place] [address] Genetics, Clinical 10/30/24 documented as of this encounter
--- OUTSIDE RECORDS SUMMARY | 2024-11-08 11:19 | XMS_ITS | Encounter Summary ---
Author Organization [facility] Address [address] [place] [address] Care Team Providers Care Laborer Vegetable Farm Name Role Phone Winston Villatoro OD Unavailable [phone] Denise Woodson APRN PRE BILLING CLINICIAN Unavailable [phone] Denise Woodson APRN PRE BILLING CLINICIAN Primary Care Provider Usha Simon APRN PRE BILLING CLINICIAN Unavailable + [phone] Dangelo Salinas MD Unavailable Anastasia Stearns RN Unavailable Germaine Aleman CH Unavailable [phone] Robin Zepeda MD Unavailable Lisa Zambrano MD Unavailable Raul Hoyos MD Unavailable Joya Lira RP Unavailable [phone] Joya Lira RPJoleen Unavailable [phone] Fabi Coates MD Unavailable [phone] Robin Zepeda MD Unavailable [phone] Danna CardenasC Unavailable [phone] Felicita Desai RN Unavailable Unavailab Arthur Rios Unavailable [phone] Randy Maradiaga DO Unavailable + Tete Wang MD Unavailable [phone] Encounter Details Date Type Department Care Team (Late st Contact Info) Description 03/16/2024 MyC Medical Advice [facility] Neurology Clinic [address] 3rd [place] [address] Ora Bazan Social History Tobacco [...] How often do you attend presybeterian or druze serv ices? 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 [place] [address] Lisa Zambrano MD [address] [place] [address] 12/03/2024 7:00 AM CDT Virtual Visit [facility] Neurology [address] [phone] Randy Maradiaga, [address] 241925 12/09/2024 12:45 PM CDT Office Visit [facility] Pediatric Specialty Clinic [address] [place] [address] [phone] Tete Wang MD [address] [place] [address] 12/09/2024 1:15 PM CDT Office Visit [facility] Pediatric Specialty Clinic [address] [place] [address] [phone] Tete Wang MD [address] [place] [address] 12/15/2024 3:00 PM CDT Virtual Visit [facility] [address] [place] [phone] Denise Woodson APRN [facility] [address] [place], [place] 8404368 01/19/2025 PRE VISIT [facility] Lung Science [address] [phone] Any Joiner MD [address] [place] [address] 195655 *-*INCOMING RECORDS*-* 01/19/2025 3:00 PM CDT Orders Only [facility] Pulmonary Function Testing [address] [phone] 01/19/2025 4:00 PM CDT Office Visit [facility] Lung Science [address] [phone] Any Joiner MD [address] [place] [address] 278065 06/01/2025 11:15 AM CDT Appointment [facility] Imaging [address] [facility] [address] [place] [phone] Robin Zepeda MD [address] [place] [address] 06/04/2025 11:00 AM CDT Office Visit [address] [phone] Robin Zepeda MD [address] [place] [address] 357995 Usha Simon APRN PRE BILLING CLINICIAN [address] [place] [address] [address] documented as of this encounter Visit Diagnoses Not on filedocumented in this encounter Additional Health Concerns Infection Onset Date Last Indicated Resolved Time Rule Out COVID-19 09/13/2024 09/13/2024 09/13/2024 12:31 PM OPERATIONS ADVISOR Assessment Noted Time PHQ-9 Depression Total Score: 16 024 3:27 PM CDT documented as of this encounter Care Teams Laborer Vegetable Farm Relationship Specialty Start Date End Date Winston Villatoro OD [facility] [place] [address] [facility] [address] [place] [address] PCP - Ophthalmology Ophthalmology 02/11/13 Denise Woodson APRN PRE BILLING CLINICIAN [address] [place] [address] PCP - General Family Practice 09/21/20 Denise Woodson APRN PRE BILLING CLINICIAN [address] [place] [address] Assigned PCP 07/17/20 Usha Simon APRN PRE BILLING CLINICIAN [address] [address] Nurse Practitioner Neurological Surgery 01/24/24 Dangelo Salinas MD [address] [place], [place] [phone] Neurology 01/27/24 Anastasia Stearns, RN Lead Clerk Travel Reservations 02/06/24 Germaine Aleman, CHW Community Health Worker Primary Care - CC 02/18/24 Robin Zepeda MD [address] [address] Assigned Neuroscience Provider 03/08/24 05/07/24 Lisa Zambrano MD [address]405 [facility] [address] [place] [address] Assigned Heart and Vascular Provider 05/08/24 07/07/24 Raul Hoyos MD [address] [place] [address] Assigned Neuroscience Provider 05/08/24 07/07/24 Joya Lira [facility] [address] [place] [address] Pharmacist Pharmacist 05/25/24 Joya Lira [facility] [address] [place] [address] Assigned MTM Pharmacist 06/08/24 Fabi Coates MD [address] [place] [address] 75 [place] [address] Genetics, Clinical 06/18/24 Robin Zepeda MD [address] [place] [address] Assigned Neuroscience Provider 07/08/24 08/07/24 Danna Cardenas PA-C 6405 [place] [address] Assigned Heart and Vascular Provider 07/08/24 Felicita Desai, RN Lead Clerk Travel Reservations 07/14/24 07/28/24 Arthur Salas, [facility] [address] [place] [address] Assigned Behavioral Health Provider 08/08/24 Randy Maardiaga DO 909 [place], [place] 316985 Assigned Neuroscience Provider 08/08/24 Tete Wang MD 2450 [place], [place] 456694 Genetics, Clinical 10/30/24 documented as of this encounter
--- OUTSIDE RECORDS SUMMARY | 2024-11-08 11:19 | XMS_ITS | Encounter Summary ---
Author Organization [facility] Address [address] [place] [address] Care Team Providers Care Hand Flatwork Finisher Name Role Phone Winston Villatoro OD Unavailable [phone] Denise Woodson APRN WINDOWS VMWARE ADMINISTRATOR Unavailable [phone] Denise Woodson APRN WINDOWS VMWARE ADMINISTRATOR Primary Care Provider Usha Simon APRN WINDOWS VMWARE ADMINISTRATOR Unavailable + [phone] Dangelo Salinas MD Unavailable Anastasia Stearns RN Unavailable [phone] Germaine Aleman [facility] Unavailable [phone] Joya Lira [facility] Unavailable Joya Lira [facility] Unavailable [phone] Fabi Coates MD Unavailable [phone] Robin Zepeda MD Unavailable Danna Cardenas PA-C Unavailable [phone] Felicita Desai RN Unavailable Unavailab Arthur RiosSW Unavailable [phone] Randy Maradiaga DO Unavailable + Tete Wang MD Unavailable [phone] Reason for Visit * Reason Onset Date Comments Appointment 07/14/2024 Seizure-like act ivity (H) R sided numbness/tinglinfg Encounter Details Date Type Department Care Team (Late st Contact Info) Description 07/14/2024 Telephone [facility] Neurology Clinic [address] 3rd [place] [address] None Appointment (Seizure-like activity (H) [...] How often do you attend yarsanism or orthodox serv ices? 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 Pt is already a ptof Dr. Maradiaga, adjusto writer operator unsure if the pt should be scheduled for the Seizure-like activity withMNCEP or continue with Dr. Maradiaga? Please call [facility] at [phone] for scheduling. Action Taken: Message routed to: [facility] Neurology Travel Screening: Not Applicable Date of Service: documented in this encounter Plan of Treatment Upcoming Encounters Date Type Department Care Team (Late st Contact Info) Description 11/17/2024 2:30 PM WINE MAKER Virtual Visit [facility] [address] [place] [phone] Denise Woodson APRN [facility] [address] [place], [place] [phone] 12/01/2024 4:00 PM CDT Virtual Visit [facility] Vascular Clinic [place] [address] [place] [phone] Lisa Zambrano MD [address] [place] [address] 12/03/2024 7:00 AM CDT Virtual Visit [facility] Neurology Clinic [address] 3rd [place] [phone] Randy Maradiaga DO [address] [place] [address] 995455 12/09/2024 12:45 PM CDT Office Visit [facility] [address] [place] [address],[place] [phone] Tete Wang MD [address] [place] [address] 408264 12/09/2024 1:15 PM CDT Office Visit [facility]ty Clinic [address] [place] [address],[place] [phone] Tete Wang MD [address] [place] [address] 933084 12/15/2024 3:00 PM CDT Virtual Visit [facility] [address] [place] [phone] Denise Woodson APRN WINDOWS VMWARE ADMINISTRATOR [address] [place] [address] 01/19/2025 PRE VISIT [facility] Lung Science [address] [phone] Any Joiner MD [address] [place] [address] 389845 *-*INCOMING RECORDS*-* 01/19/2025 3:00 PM CDT Orders Only [facility] Pulmonary Function Testing [address] 3rd [place] [address] 01/19/2025 4:00 PM CDT Office Visit [facility] Lung Science [address] [phone] Any Joiner MD [address] [place] [address] 828465 06/01/2025 11:15 AM CDT Appointment [facility] Imaging [address] [facility] [address] [place] [phone] Robin Zepeda MD [address] [place] [address] 06/04/2025 11:00 AM CDT Office Visit [facility] Neurosurgery Clinic [address] 3rd [place] [phone] Robin Zepeda MD [address] [place] [address] 261355 Usha Simon APRN WINDOWS VMWARE ADMINISTRATOR [address] [place] [address] 583405 documented as of this encounter Visit Diagnoses Not on filedocumented in this encounter Additional Health Concerns Infection Onset Date Last Indicated Resolved Time Rule Out COVID-19 09/13/2024 09/13/2024 09/13/2024 12:31 PM WINE MAKER Assessment Noted Time PHQ-9 Depression Total Score: 5 03/17/20 24 9:45 AM CDT documented as of this encounter Care Teams Hand Flatwork Finisher Relationship Specialty Start Date End Date Winston Villatoro, OD [facility] [address] [facility] [address] [place] [address] PCP - Ophthalmology Ophthalmology 02/11/13 Denise Woodson APRN WINDOWS VMWARE ADMINISTRATOR [address] [place] [place] [address] PCP - General Family Practice 09/21/20 Denise Woodson APRN WINDOWS VMWARE ADMINISTRATOR [address] [place] [address] Assigned PCP 07/17/20 Usha Simon APRN WINDOWS VMWARE ADMINISTRATOR [address] 289365 Nurse Practitioner Neurological Surgery 01/24/24 Dangelo Salinas MD [address] [place] [address] Neurology 01/27/24 Anastasia Stearns, RN Lead Spray Pilot 02/06/24 Germaine Aleman, W Community Health Worker Primary Care - CC 02/18/24 Joya Lira [facility] [address] [place], [place] [phone] Pharmacist Pharmacist 05/25/24 Joya Lira [facility] [address] [place], [place] [address] Assigned MTM Pharmacist 06/08/24 Fabi Coates MD [address] [place] [address] 75 [place], [place] 120905 Genetics, Clinical 06/18/24 Robin Zepeda MD [address] 027985 Assigned Neuroscience Provider 07/08/24 08/07/24 Danna Cardenas PA-C 6405 [place], [place] 928975 Assigned Heart and Vascular Provider 07/08/24 Felicita Desai, RN Lead Spray Pilot 07/14/24 07/28/24 [facility] [address] [address] Assigned Behavioral Health Provider 08/08/24 Randy Maradiaga DO [address] [place] [address] 394135 Assigned Neuroscience Provider 08/08/24 Tete Wang MD [facility] [place] [address] Genetics, Clinical 10/30/24 documented as of this encounter
--- OUTSIDE RECORDS SUMMARY | 2024-11-08 11:19 | XMS_ITS | Encounter Summary ---
Author Organization [facility] Address [address] [place] [address] Care Team Providers Care Analytical Statistician Name Role Phone Winston Villatoro OD Unavailable [phone] Denise [place] APRN DREDGE PIPE INSTALLER Unavailable [phone] Denise [place] APRN [facility] Primary Care Provider Usha Simon APRN [facility] Unavailable + [phone] Dangelo Salinas MD Unavailable Anastasia Stearns RN Unavailable [phone] Germaine Aleman [facility] Unavailable [phone] Joya Lira [facility] Unavailable [phone] Joya Lira [facility] Unavailable [phone] Fabi Coates MD Unavailable [phone] Danna Cardenas PA-C Unavailable [phone] Arthur Salas [employer] Unavailable [phone] Randy Maradiaga DO Unavailable + Reason for Visit * Reason Comments Follow Up Results CTA, Zio, EKG, CXR, Angio * Consultation (Routine) - Pending Review Specialty Diagnoses / Procedures Referred By Contac t Referred To Contact Cardiovascular Disease Diagnoses Chest pain, unspecified type Tachycardia Danna Cardenas PA-C [address] [place] [address] Phone: tel: fax: Referral ID Status Reason Start Date Expiration Date V isits Requested Visits Authorized [id number] Pending Review 06/26/2024 06/26/2025 1 1 Encounter Details Date Type Department Care Team (Late st Contact Info) Description 10/09/2024 1:20 PM INSURANCE CODER Virtual Visit [facility] [address] [facility] [address] [place] [phone] Danna Cardenas PA-C [address] [facility] [place] [id number] Chest pain, unspecified type; Tachycardia Social History [...] Never 09/16/2024 How often do you attend denominational or jehovah's witness serv ices? Never 09/16/2024 Do you belong [...] Date Recorded PHQ-2 Score 0 09/29/2024 [facility] - Occupational Stress Questionnaire [...] on file Legal Sex Female 4:05 AM INSURANCE CODER Gender Identity Not on file Sexual Orientation [...] resent by: Send to e- mail at: [email or web address] Will anyone else be joining your video visit? No Video-Visit Details Type of service: Video Visit Originating Location (pt. Location): Home Distant Location (provider location): On-site Platform used for Video Visit: AmFanzy +++Patient does not take BP at home+++ Vitals - Patient Reported Weight (Patient Reported): 95.3 kg (210 lb) Height (Patient Reported): 174 cm (5' 8.5) BMI (Based on Pt Reported Ht/Wt): 31.47 Review Of Systems Respiratory: NEGATIVE Cardiovascular:NEGATIVE Telephone number of patient: [phone] PatriceMg RANCE CODER * Danna Cardenas PA-C - 10/09/2024 1:20 PM CST Images from the original note were not included. Cardiology Virtual Visit Progress Note Service Date: October 09, 2024 Primary Roller Operator: Dr. Zurita Reason for visit: 3 month [...] cardiology as needed Danna Cardenas PA-C Physician Core Setter [facility] History of Presenting Illness: [...] Taking medications daily as prescribed. 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 No Social [...] min Stress: No Stress Concern Present (09/16/2024) [facility] - Occupational Stress Questionnaire Feeling of Stress : Not at all Social Connections: Socially Isolated (09/16/2024) Social Connection and Isolation Panel [NHANES] Frequency of Communication with Friends and Family: Once a week Frequency of Social Gatherings with Friends and Family: Never Attends Hoahaoism Services: Never Active Member of Clubs or [...] Past Surgical History: Procedure Laterality Date C REWARDS CONSULTANT PROCEDURE DATE: vag del. C REWARDS CONSULTANT PROCEDURE DATE: 2000 tubal ligation C REWARDS CONSULTANT PROCEDURE DATE: 1994 D&C CARDIAC SURGERY 06/2006 heart defect repair CHOLECYSTECTOMY 2020 ESOPHAGOSCOPY, GASTROSCOPY, DUODENOSCOPY (EGD), COMBINED N/A 02/08/2021 Procedure: ESOPHAGOGASTRODUODENOSCOPY (EGD); Surgeon: Tuan Miller MD; Location: GI GENITOURINARY SURGERY 2022 GI SURGERY 09/2020 gallbladder removed HC KNEE SCOPE,MED/LAT MENISECTOMY 08/04/2013 LT HEART CATH, CLOSURE ATRIAL SEPTAL DEFECT 06/20/2006 amplatzer septal occluder- serial #[id number] RW REWARDS CONSULTANT (ABSTRACTED) pneumonia several times SOFT TISSUE SURGERY [...] completed in part using dictation via the micecloud voice recognition software. Some word and grammatical errors may occur and must be interpreted in the appropriate clinical context. If there are any questions pertaining to this issue, please contact me for further clarification. RANCE CODER documented in this encounter Plan of Treatment Upcoming Encounters Date Type Department Care Team (Late st Contact Info) Description 11/17/2024 2:30 PM INSURANCE CODER Virtual Visit [facility] [address] [place] [phone] Denise [place] APRN [facility] [address] [place], [place] [phone] 12/01/2024 4:00 PM CDT Virtual Visit [facility] [place] [address] [place] [phone] Lisa Zambrano MD [address] [place] [address] 12/03/2024 7:00 AM CDT Virtual Visit [facility] [address] 3rd [place] [phone] Randy Maradiaga DO [address] [place] [address] 12/09/2024 12:45 PM CDT Office Visit [facility] [address] [place] [phone] Tete Wang MD [address] [place] [phone] 12/09/2024 1:15 PM CDT Office Visit [facility] [address] [place] [address] [phone] Tete Wang MD [address] [place] [id number] 12/15/2024 3:00 PM CDT Virtual Visit [facility] [address] [place] [address] Denise [place] APRN [facility] [address] [place], [place] [phone] 01/19/2025 PRE VISIT [facility] [address] [address] Any Joiner MD [address] [place] [address] *-*INCOMING RECORDS*-* 01/19/2025 3:00 PM CDT Orders Only [facility] Pulmonary Function Testing [address] 3rd [place] [address] 01/19/2025 4:00 PM CDT Office Visit [facility] [address] [phone] Any Joiner MD [address] [place] [address] 06/01/2025 11:15 AM CDT Appointment [facility] Imaging [address] [place] [address] Robin Zepeda MD [address] [place] [address] 06/04/2025 11:00 AM CDT Office Visit [facility] Neurosurgery Clinic [address] 3rd [place] [phone] Robin Zepeda MD [address] [place] [address] Usha Simon APRN DREDGE PIPE INSTALLER [address] [place] [address] documented as of this encounter Visit Diagnoses Diagnosis Chest pain, unspecified type Tachycardia Tachycardia, unspecified documented in this encounter Additional Health Concerns Assessment Noted Time PHQ-9 Depression Total Score: 0 09/18/19 25 12:46 PM INSURANCE CODER documented as of this encounter Care Teams Analytical Statistician Relationship Specialty Start Date End Date Winston Villatoro OD [facility] [address] [facility] [address] [place] [address] PCP - Ophthalmology Ophthalmology 02/11/13 Denise [place] APRN [employer]ED[employer] PIPE INSTALLER [address] [place] [address] PCP - General Family Practice 09/21/20 Denise [place] APRN [employer]ED[employer] PIPE INSTALLER [address] [place] [place] [address] Assigned PCP 07/17/20 Usha Simon APRN DREDGE PIPE INSTALLER [address] [facility] [id number] [place], [place] [address] Nurse Practitioner Neurological Surgery 01/24/24 Dangelo Salinas MD [address] [place] [address] Neurology 01/27/24 Anastasia Stearns, RN Lead Ultrasound Applications Specialist 02/06/24 Germaine Aleman, W Community Health Worker Primary Care - CC 02/18/24 Joya Lira [facility] [address] [place], [place] [phone] Pharmacist Pharmacist 05/25/24 Joya Lira [facility] [address] [place], [place] [phone] Assigned MTM Pharmacist 06/08/24 Fabi Coates MD [address] [facility] [address] [place], [place] [phone] Genetics, Clinical 06/18/24 Danna Cardenas PA-C [address] [place] [address] Assigned Heart and Vascular Provider 07/08/24 Arthur Salas LICSW [address] [place] [address] Assigned Behavioral Health Provider 08/08/24 Randy Maradiaga DO [address] [place] [address] Assigned Neuroscience Provider 08/08/24 documented as of this encounter
--- OUTSIDE RECORDS SUMMARY | 2024-11-08 11:19 | XMS_ITS | Encounter Summary ---
Author Organization [facility] Address [address] [place] [address] Care Team Providers Care Electronics Commodity Manager Name Role Phone Winston Villatroo OD Unavailable [phone] Denise [place] APRN FELT PAD CUTTER Unavailable [phone] Denise [place] APRN [employer] P[employer] C[employer] Primary Care Provider Usha Simon APRN [employer] C[employer]TER Unavailable Dangelo Salinas MD Unavailable Anastasia Stearns RN Unavailable [phone] Germaine Aleman [facility] Unavailable [phone] Joya Lira [facility] Unavailable Joya Lira [facility] Unavailable Fabi Coates MD Unavailable [phone] Danna Cardenas PA-C Unavailable [phone] Arthur Salas PIN CLEANER Unavailable [phone] Randy Maradiaga DO Unavailable + Reason for Referral * Consultation (Routine: Next available opening) - Pending Review Specialty Diagnoses / Procedures Referred By Contac t Referred To Contact Pulmonary Disease Diagnoses BPD (bronchopulmonary dysplasia) (H) Denise [place] APRN [employer] P[employer] C[employer] [address] [place] [address] Phone: tel: fax: Referral ID Status Reason Start Date Expiration Date V joni Requested Visits Authorized [id number] Pending Review 09/28/2024 09/28/2025 1 1 Question Answer Reason for Referral: General Pulmonary Patient Scheduling Instructions: [facility] will call you to coordinate your care as prescribed by the provider. If you don t hear from a mechanical service representative within 2 business days, please call . Comments Please be aware that coverage of these services is subject to the terms and limitations of your health insurance plan. Call member services at your health plan with any benefit or coverage questions. [facility] will call you to coordinate your care as prescribed by the provider. If you don t hear from a mechanical service representative within 2 business days, please call . ASONIC WELDING MACHINE OPERATOR Reason for Visit * Reason Comments Video Visit Cough Encounter Details Date Type Department Care Team (Late st Contact Info) Description 09/28/2024 12:00 PM ULTRASONIC WELDING MACHINE OPERATOR Virtual Visit [facility] [address] [place] [address] Denise [place] APRN F[employer] PAD CUTTER [address] [place] [address] Chronic obstructive pulmonary disease without [...] Never 09/16/2024 How often do you attend confucianism or rastafari serv ices? 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 How would you like to obtain your AVS? MyChart If the video visit is dropped, the invitation should be resent by: Text to cell phone: [phone] Will anyone else be joining your video visit? No Assessment & Plan Chronic obstructive pulmonary disease without exacerbation (H) BPD (bronchopulmonary dysplasia) (H) Improved with current regimen. She will see pulmonology for further direction on how to manage in the future. - Adult Pulmonary Medicine [facility] Referral; Future Anxiety Interested in increase in [...] Signed Electronically by: Denise [place] APRN CNP ASONIC WELDING MACHINE OPERATOR documented in this encounter Plan of Treatment Upcoming Encounters Date Type Department Care Team (Late st Contact Info) Description 11/17/2024 2:30 PM ULTRASONIC WELDING MACHINE OPERATOR Virtual Visit [facility] [address] [place] [phone] Denise [place] APRN FELT PAD CUTTER [address] [place], [place] [phone] 12/01/2024 4:00 PM CDT Virtual Visit [facility] [address] [place] [address] Lisa Zambrano MD [address] [facility] [address] [place], [place] [phone] 12/03/2024 7:00 AM CDT Virtual Visit [facility] [address] 3rd [place] [phone] Randy Maradiaga, [address] [address] 12/09/2024 12:45 PM CDT Office Visit [facility] [address] [place] [address] [address],[place] [phone] Tete Wang MD [address] [place] [address]83[address] 12/09/2024 1:15 PM CDT Office Visit [facility] [address],[place] [phone] Tete Wang MD [facility] [place] [address] 12/15/2024 3:00 PM CDT Virtual Visit [facility] [address] [place] [address] Denise [place] APRN FELT PAD CUTTER [address] [place] [address] 01/19/2025 PRE VISIT [facility] [address] [phone] Any Joiner MD [address] [place] [phone] *-*INCOMING RECORDS*-* 01/19/2025 3:00 PM CDT Orders Only [facility] Pulmonary Function Testing [address]rd [place] [phone] 01/19/2025 4:00 PM CDT Office Visit [facility] [address] [phone] Any Joiner MD [address] [place] [phone] 06/01/2025 11:15 AM CDT Appointment [facility] Imaging [address] [place] [phone] Robin Zepeda MD [address] [place] [address] [id number] [place], [place] [phone] 06/04/2025 11:00 AM CDT Office Visit [address] 3rd [place] [phone] Robin Zepeda MD [address] [place] [address] [phone] Usha Simon APRN FELT PAD CUTTER [address] [place] [address] 658265 Scheduled Referrals Name Type Priority Associated Diagnoses Orde r Schedule Adult Pulmonary Medicine [facility] Referral Referral Routine: Next available opening BPD [...] Total Score: 0 09/18/19 25 12:46 PM ULTRASONIC WELDING MACHINE OPERATOR documented as of this encounter Care Teams Electronics Commodity Manager Relationship Specialty Start Date End Date Winston Villatoro OD [facility] [place] [address] [facility] [address] [place] [address] PCP - Ophthalmology Ophthalmology 02/11/13 Denise [place] APRN FELT PAD CUTTER [address] [place] [address] PCP - General Family Practice 09/21/20 Denise [place] APRN F[employer] PAD CUTTER [address] [place] [address] Assigned PCP 07/17/20 Usha Simon APRN F[employer] PAD CUTTER [address] [place] [address] SE [id number] [place] [address] Nurse Practitioner Neurological Surgery 01/24/24 Dangelo Salinas MD [address] [facility] [address] [address] Neurology 01/27/24 Anastasia Stearns, RN Lead Lead Database Developer 02/06/24 Germaine [place], W Community Health Worker Primary Care - CC 02/18/24 Joya Lira RPH [address] [facility] [place] [address] Pharmacist Pharmacist 05/25/24 Joya Lira RPH [address] [place] [address] Assigned MTM Pharmacist 06/08/24 Fabi Coates MD [address] [place] [address] 75 [place] [address] Genetics, Clinical 06/18/24 Danna Cardenas PA-C [address] [place] [address] Assigned Heart and Vascular Provider 07/08/24 Arthur Salas LICSW [address] [address] Assigned Behavioral Health Provider 08/08/24 Randy Maradiaga DO [address] [place] [address] Assigned Neuroscience Provider 08/08/24 documented as of this encounter
--- OUTSIDE RECORDS SUMMARY | 2024-11-08 11:19 | XMS_ITS | Encounter Summary ---
Author Organization [facility] Address [address] [place] [address] Care Team Providers Care Lathe Spotter Name Role Phone Winston Villatoro OD Unavailable [phone] Denise Woodson APRN PAINTINGS CONSERVATOR Unavailable [phone] Denise Woodson APRN PAINTINGS CONSERVATOR Primary Care Provider Usha Simon APRN PAINTINGS CONSERVATOR Unavailable + [phone] Dangelo Salinas MD Unavailable Anastasia Stearns RN Unavailable [phone] Germaine Aleman [facility] Unavailable [phone] Joya Lira [facility] Unavailable +[phone] Joya Lira [facility] Unavailable [phone] Fabi Coates MD Unavailable [phone] Danna CardenasC Unavailable [phone] Arthur Salas HAND WRAPPER OPERATOR Unavailable [phone] Randy Maradiaga DO Unavailable + Reason for Visit * Reason Comments RECHECK Encounter Details Date Type Department Care Team (Late st Contact Info) Description 09/29/2024 9:00 AM DECAL CUTTER Virtual Visit [facility] Neurology Clinic [address] [place] [address] Randy Maradiaga, [address] [place], [place] [address] Seizure-like activity (H) (Primary Dx); History of [...] How often do you attend latter-day or bahai serv ices? 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 L CUTTER documented in this encounter Progress Notes * Randy Maradiaga DO - 09/29/2024 9:00 AM CST [facility] Neurology Follow Up Visit Alcon Zamora Age: [age] year old Date of : 1975 Brief history of symptoms: The patient was initially seen in neurologic consultation on 07/02/2024 and most recently 07/30/2024 for evaluation of headache. Please see the comprehensive neurologic consultation notes from those dates in the [facility] records for details. The patient has a [...] tremors or other abnormal movements observed. Coordination: Wrqhrw-ejkz-doukci without dysmetria. Assessment and Plan: Assessment: - [...] should new concerns arise. Afua Maradiaga D.O. Rn [facility] of Neurology Total time today (32 min) in this patient encounter was spent on pre-charting, counseling and/or coordination of care. The longitudinal plan of care for the diagnosis(es)/condition(s) as documented were addressed during this visit. Due to the added complexity in care, I will continue to support Alcon in the subsequent management and with ongoing continuity of care. L CUTTER * Randy Maradiaga DO - 09/29/2024 9:00 AM CST Virtual Visit Details Type of service: Video Visit Originating Location (pt. Location): Home Distant Location (provider location): On-site Platform used for Video Visit: Bobby L CUTTER documented in this encounter Nursing Notes * Airam Todd - 09/29/2024 9:00 AM CST Current patient location: [facility] [address] Is the patient currently in the state of [place]? YES Visit mode: VIDEO If the visit is dropped, the patient can be reconnected by:VIDEO VISIT: Text to cell phone: Telephone Information: Will anyone else be joining the visit? NO (If patient encounters technical issues they should call [phone] :[phone]) Are changes needed to the allergy or medication list? Pt stated no changes to allergies and Pt stated no med changes Are refills needed on medications prescribed by this physician? NO Rooming Documentation: Not applicable Reason for visit: RECHFRAN Todd VVF L CUTTER documented in this encounter Plan of Treatment Upcoming Encounters Date Type Department Care Team (Late st Contact Info) Description 11/17/2024 2:30 PM DECAL CUTTER Virtual Visit [facility] [address] [place] [phone] Denise Woodson APRN [facility] [address] [place], [place] [id number] 12/01/2024 4:00 PM CDT Virtual Visit [facility] Vascular [facility] [address] [place] [phone] Lisa Zambrano MD [address] [place] [address] 12/03/2024 7:00 AM CDT Virtual Visit [facility] Neurology [facility] [address] [place] [phone] Randy Maradiaga DO [address] [place] [address] 12/09/2024 12:45 PM CDT Office Visit [facility]ty [facility] [address] [place] [address],[place] [phone] Tete Wang MD [address] [place] [address]30814 12/09/2024 1:15 PM CDT Office Visit [facility] [address] [place] [address],[place] [phone] Tete Wang MD [address] [place] [phone] 12/15/2024 3:00 PM CDT Virtual Visit [facility] [address] [place] [address] Denise Woodson APRN [facility] [address] [place] [address] 01/19/2025 PRE VISIT [facility] Lung Science [address] [address] Any Joiner MD [address] [place] [address] *-*INCOMING RECORDS*-* 01/19/2025 3:00 PM CDT Orders Only [facility] Pulmonary Function Testing [address] 3rd [place] [address] 01/19/2025 4:00 PM CDT Office Visit [facility] Lung Science [address] [phone] Any Joiner MD [address] [place] [address] 06/01/2025 11:15 AM CDT Appointment [facility] Imaging [address] [place] [phone] Robin Zepeda MD [address] [address] 06/04/2025 11:00 AM CDT Office Visit [facility] Neurosurgery Clinic [address] 3rd [place] [phone] Robin Zepeda MD [address] [place] [address] Usha Simon APRN PAINTINGS CONSERVATOR [address] [address] documented as of this encounter Visit Diagnoses Diagnosis Seizure-like activity (H)- Primary Other convulsions History of seizure Cerebrovascular accident (CVA), unspecified mechanism (H) documented in this encounter Additional Health Concerns Assessment Noted Time PHQ-9 Depression Total Score: 0 09/18/19 25 12:46 PM DECAL CUTTER documented as of this encounter Care Teams Lathe Spotter Relationship Specialty Start Date End Date Winston Villatoro OD [facility] [address] [facility] [address] [place] [address] PCP - Ophthalmology Ophthalmology 02/11/13 Denise Woodson APRN PAINTINGS CONSERVATOR [address] [address] PCP - General Family Practice 09/21/20 Denise Woodson APRN PAINTINGS CONSERVATOR [address] [address] Assigned PCP 07/17/20 Usha Simon APRN PAINTINGS CONSERVATOR 909 [facility] [id number] [place], [place] 64[address] Nurse Practitioner Neurological Surgery 01/24/24 Dangelo Salinas MD [address] [place], [place] [phone] Neurology 01/27/24 Anastasia Stearns, RN Lead Dog Beautician 02/06/24 Germaine Aleman, W Community Health Worker Primary Care - CC 02/18/24 Joya Lira [facility] [address] [place], [place] [phone] Pharmacist Pharmacist 05/25/24 Joya Lira [facility] [address] [place], [place] [phone] Assigned MTM Pharmacist 06/08/24 Fabi Coates MD [address] [facility] 75 [place], [place] [address] Genetics, Clinical 06/18/24 Danna Cardenas PA-C 6405 [place], [place] 5[address] Assigned Heart and Vascular Provider 07/08/24 Arthur Salas LICSW [address] [place] [address] Assigned Behavioral Health Provider 08/08/24 Randy Maradiaga DO [address] [place] [address] Assigned Neuroscience Provider 08/08/24 documented as of this encounter
[2024-11-08 11:20] VITALS: BP 160/88; PULSE 91; RESP 18; TEMP 36.6; O2SAT 97; BMI 32.2
--- OUTSIDE RECORDS SUMMARY | 2024-11-08 11:20 | XMS_ITS | Encounter Summary ---
Author Organization [facility] Address [address] [place] [address] Care Team Providers Care Manager Group Home Name Role Phone Winston Villatoro OD Unavailable [phone] Denise Woodson APRN MANAGER PROGRAM MANAGEMENT Unavailable [phone] Denise Woodson APRN MANAGER PROGRAM MANAGEMENT Primary Care Provider Usha Simon APRN MANAGER PROGRAM MANAGEMENT Unavailable + [phone] Dangelo Salinas MD Unavailable Anastasia Stearns RN Unavailable [phone] Germaine Aleman [facility] Unavailable [phone] Joya Lira [facility] Unavailable +[phone] Joya Lira [facility] Unavailable +[phone] Fabi Coates MD Unavailable [phone] Danna Cardenas PA-C Unavailable [phone] Arthur Salas CLIENT SERVICE AND CONSULTING MANAGER Unavailable [phone] Randy Maradiaga DO Unavailable + Tete Wang MD Unavailable +[phone] Encounter Details Date Type Department Care Team (Late st Contact Info) Description 09/04/2024 [facility] [address] [place] [address] Qing Copeland Social History Tobacco Use Types [...] Answer Date Recorded PHQ-2 Score 2 08/04/2024 [facility] - Occupational Stress Questionnaire Answer Date Recorded [...] on file Legal Sex Female 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 Gender Identity Not on file Sexual Orientation Not on file 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 [place] [phone] Lisa Zambrano MD [address] [place] [address] 12/03/2024 7:00 AM CDT Virtual Visit [facility] Neurology Clinic [address] 3rd [place] [phone] Randy Maradiaga DO [address] [place] [address] 12/09/2024 12:45 PM CDT Office Visit [facility]ty [facility] [address] [place] [phone] Tete Wang MD [address] [place] [address] 12/09/2024 1:15 PM CDT Office Visit [facility]ty [facility] [address] [place] [phone] Tete Wang MD [address] [place] [address] 12/15/2024 3:00 PM CDT Virtual Visit [facility] [address] [place] [address] Denise Woodson APRN [facility] [address] [place] [address] 01/19/2025 PRE VISIT [facility] Clinic [address] [phone] Any Joiner MD [address] [place] [address] *-*INCOMING RECORDS*-* 01/19/2025 3:00 PM CDT Orders Only [facility] Pulmonary Function Testing [address] [place] [phone] 01/19/2025 4:00 PM CDT Office Visit [facility] for [facility] Science and Health [address] [phone] Any Joiner MD [address] [place] [address] 06/01/2025 11:15 AM CDT Appointment [facility] Imaging [address] [facility] [address] [place] [phone] Robin Zepeda MD [address] [place] [address] 06/04/2025 11:00 AM CDT Office Visit [facility] Neurosurgery Clinic [address] [phone] Robin Zepeda MD [address] [place] [phone] Usha Simon APRN [address] [address] documented as of this encounter Visit Diagnoses Not on filedocumented in this encounter Additional Health Concerns Infection Onset Date Last Indicated Resolved Time Rule Out COVID-19 09/13/2024 09/13/2024 09/13/2024 12:31 PM PALEONTOLOGY TEACHER Assessment Noted Time PHQ-9 Depression Total Score: 5 08/03/20 24 12:49 PM PALEONTOLOGY TEACHER documented as of this encounter Care Teams Manager Group Home Relationship Specialty Start Date End Date [facility] [place] [address] [place] [address] PCP - Ophthalmology Ophthalmology 02/11/13 Denise Woodson APRN MANAGER PROGRAM MANAGEMENT [address] [facility] [place] [address] PCP - General Family Practice 09/21/20 Denise Woodson APRN MANAGER PROGRAM MANAGEMENT [address] [place] [address] Assigned PCP 07/17/20 Usha Simon APRN MANAGER PROGRAM MANAGEMENT 909 [facility]121[place], [place] [address] Nurse Practitioner Neurological Surgery 01/24/24 Dangelo Salinas MD [address] [place] [address] Neurology 01/27/24 Anastasia Stearns, RN Lead Hot Dimpling Machine Operator 02/06/24 Germaine Aleman, CHW Community Health Worker Primary Care - CC 02/18/24 Joya Lira RPH [address] [place] [address] Pharmacist Pharmacist 05/25/24 Joya Lira RPH [address] [place] [address] Assigned [place] Pharmacist 06/08/24 Fabi Coates MD [address] [place] [address] 75 [place], [place] [address] Genetics, Clinical 06/18/24 Danna Cardenas PA-C [address] [place] [address] Assigned Heart and Vascular Provider 07/08/24 Arthur Salas [facility] [address] [address] Assigned Behavioral Health Provider 08/08/24 Randy Maradiaga DO [address] [place] [address] 697025 Assigned Neuroscience Provider 08/08/24 Tete Wang MD [address] [place] [address] Genetics, Clinical 10/30/24 documented as of this encounter
--- NOTE | 2024-11-08 11:31 | ED.GENADULT ---
HPI - General Adult General Time Seen by Provider: 11:36 Date Seen: 11/08/24 Chief complaint: Unspecified Complaint, Adult Stated complaint: burning sensation on body Time Seen by Provider: 11/08/24 11:31 Source: patient, RN notes reviewed and old records reviewed Mode of arrival: ambulatory Limitations: no limitations History of Present Illness HPI narrative: This 49-year-old female is ambulatory into the ED with concerns of burning and tingling sensation that is moved from her hands and feet were her whole body now. She has a very complex history, was recently hospitalized here. She was having complaints of blurred vision, ataxia, dizziness/lightheadedness, head CT imaging, MRI and MRA imaging done prior to discharge yesterday, no new stroke. She was found to have some eosinophilia, some labs are in process for workup of this. Did speak with our hospitalist Dr. Gordillo who had taken care of her and discharged her yesterday. She is not concerned about this current complaint, likely is not representing anything emergent. Patient has had a history of prior cerebrovascular disease, history of AV fistula. She is followed at [place]. She just was feeling worse today, talked to Neurology at [place] whom recommended that she come in for evaluation. She is not concerned about any stroke symptoms, feels comfortable with the imaging that was done in the previous [address] and MRIs. It sounds as if she is concerned about the eosinophilia. She is not aware of any rash, no fevers. Have reviewed the hospitalist discharge which went over this in depth. There are some labs that are still pending, ANCA/myeloperoxidase, ANCA pattern, serine proteinase 3. Related Data Home Medications ?Medication ?Instructions ?Recorded ?Confirmed fluticasone furoate 200 1 inh inhalation DAILY 07/03/22 11/05/24 mcg-vilanterol 25 mcg/dose inhalation powder (Breo Ellipta) albuterol sulfate 90 mcg/actuation 2 puff inhalation Q4H PRN 08/01/22 11/05/24 aerosol inhaler magnesium 250 mg tablet 250 mg PO HS 08/02/22 11/05/24 trazodone 100 mg tablet 100 mg PO HS sleep 08/02/22 11/05/24 cetirizine 10 mg tablet (Zyrtec) 10 mg PO DAILY 10/08/23 11/05/24 lorazepam 1 mg tablet 0.5 - 1 mg PO DAILY PRN dizziness 05/07/24 11/05/24 levetiracetam 750 mg tablet 375 mg PO BID 05/08/24 11/05/24 (Keppra) citalopram 10 mg tablet 5 mg PO DAILY 09/20/24 11/05/24 aspirin 81 mg tablet,delayed 243 mg PO DAILY 11/05/24 11/05/24 release lidocaine 4 % topical patch 1 patch topical Q24H 11/05/24 11/05/24 oxycodone 5 mg tablet 2.5 mg PO Q4H PRN 11/05/24 11/05/24 psyllium husk 3.4 gram/5.4 gram 1 tbsp PO DAILY 11/05/24 11/05/24 oral powder sennosides 8.6 mg-docusate sodium 2 tab-cap PO BID PRN 11/05/24 11/05/24 50 mg capsule (Senna Plus) Allergies Allergy/AdvReac Type Severity Reaction Status Date / Time bupropion Allergy Intermediate Diarrhea Verified 09/20/24 18:15 codeine Allergy Intermediate epigastric Verified 09/20/24 18:15 pain erythromycin base Allergy Intermediate stomach Verified 09/20/24 18:15 upset, diarrhea doxycycline Allergy Mild burning Verified 09/20/24 18:15 sensation in hands and feet morphine AdvReac Verified 09/20/24 18:15 Review of Systems Status of ROS: Reports: 6 or more systems reviewed and unremarkable except as noted in History and below [facility] Medical History Ischemic cerebrovascular accident (CVA) (01/09/24) ?I63.9 - Cerebral infarction, unspecified (ICD-10) History of cerebrovascular disease ?Z86.79 - Personal history of other diseases of the circulatory system (ICD-10) Dural arteriovenous fistula (~12/2023) ?I67.1 - Cerebral aneurysm, nonruptured (ICD-10) Fibromuscular dysplasia ?I77.3 - Arterial fibromuscular dysplasia (ICD-10) Seizure (01/14/24) ?R56.9 - Unspecified convulsions (ICD-10) History of cerebral angiography (01/09/24) ?Z98.890 - Other specified postprocedural states (ICD-10) Headache ?R51.9 - Headache, unspecified (ICD-10) 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, unspecified (ICD-10) Mild persistent asthma (09/27/22) ?J45.30 - Mild persistent asthma, uncomplicated (ICD-10) Asthma ?J45.909 - Unspecified asthma, uncomplicated (ICD-10) History of blood transfusion (1994) ?Z92.89 - Personal history of other medical treatment (ICD-10) History of vitamin D deficiency ?Z86.39 - Personal history of other endocrine, nutritional and metabolic disease (ICD-10) Anxiety and depression ?F41.9 - Anxiety disorder, unspecified (ICD-10) ?F32.A - Depression, unspecified (ICD-10) Fibromyalgia ?M79.7 - Fibromyalgia (ICD-10) H/O bronchopulmonary dysplasia ?Z87.09 - Personal history of other diseases of the respiratory system (ICD-10) Stage 1 chronic kidney disease (11/16/20) ?N18.1 - Chronic kidney disease, stage 1 (ICD-10) Simple renal cyst (10/2020) ?N28.1 - Cyst of kidney, acquired (ICD-10) Asthma ?J45.909 - Unspecified asthma, uncomplicated (ICD-10) Surgical History History of laparoscopy ?Z98.890 - Other specified postprocedural states (ICD-10) S/P dilation and curettage (1994) ?Z98.890 - Other specified postprocedural states (ICD-10) H/O tubal ligation ?Z98.51 - Tubal ligation status (ICD-10) Status post excision of lipoma (2011) ?Z98.890 - Other specified postprocedural states (ICD-10) ?Z86.018 - Personal history of other benign neoplasm (ICD-10) History of medial meniscus repair of left knee (08/04/13) ?Z98.890 - Other specified postprocedural states (ICD-10) History of laparoscopic cholecystectomy (09/29/20) ?Z90.49 - Acquired absence of other specified parts of digestive tract (ICD-10) History of hysterectomy for benign disease (2005) ?Z90.710 - Acquired absence of both cervix and uterus (ICD-10) History of catheter-based closure of atrial septal defect (06/2006) ?Z87.74 - Personal history of (corrected) congenital malformations of heart and circulatory system (ICD-10) Family History Maternal Grandmother Stroke Paternal Grandfather Diabetes Daughter Depression Social History Narrative: to Olaf (would be medical decision maker if needed), adult children 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 [employer] She has a college education Nonsmoker, no ETOH use What is your current living situation?: I presently have a place to live Problems where you live: no known problems Problems where you live details: N/A In the past 12 months, utilities in danger of being shut off: no In past 12 months, lack of transportation kept you from medical appts, meetings, work, or getting things needed for daily living: no In the past 12 mos, have been you worried that your food would run out before you had money to buy more?: never true In the past 12 mos, the food you bought just didn't last and you didn't have money to buy more?: never true Highest level of school completed/degree received: Associate degree: academic program Smoking Status: Never smoker Do you use any of these nicotine containing products: None Second hand tobacco smoke exposure: No How often do you have a drink containing alcohol: never How often do you have six or more drinks on one occasion: Never AUDIT-C Alcohol total score: 0 Non-prescribed substance use: denies use Caffeine: Yes How often does anyone, including family, friends and others, physically hurt you: never How often does anyone, including family, friends and others, insult or talk down to you: never How often does anyone, including family, friends and others, threaten you with harm: never How often does anyone, including family, friends and others, scream or curse at you: never Are you using contraception or practicing any form of control: Yes (hysterectomy) service: No Exam Const: Vital Signs, click to edit/add: Vital Signs - 24 hr 11/08/24 11:20 Temperature 98 F Pulse Rate [Pulse Oximeter] 91 Respiratory Rate 18 Blood Pressure [Ri ght Upper Arm] 160/88 H Pulse Oximetry 97 Oxygen Delivery Me thod Room Air Jose is alert, interactive, no apparent distress. Pupils equal round reactive, extraocular muscles intact, symmetrical facial function, speech normal. Lungs are clear, good air entry, no wheezing or crackles, no tachypnea. CV regular rate and rhythm, no murmur, normal S1-S2, no S3-S4. DTRs left biceps 1+, do not get any at the right biceps, cannot get DTRs of Achilles or patellas. She has normal [id number], normal rapid alternating finger movements. Strength in upper and lower extremities is 5/5 and symmetric. She seems to have normal light touch sensation. Skin visualized without any rash. Abdomen is soft, nontender, nondistended, no organomegaly, rebound or guarding, no masses. She has no lower extremity edema. Documenting provider has reviewed patient's vital signs: yes Course Course ED Course: Patient does have underlying asthma and eosinophilia can sometimes be a picture with patients that have allergic type issues. She is having no rash, no evidence of any acute new neurologic disorder. Reviewed with her that I am not particularly concerned about this eosinophilia as far as an emergency issue today. Will recheck some basic labs, if stable will refer her to clinic for further follow-up outpatient. Have talked to our hospitalist Dr. Gordillo regarding this as well. She is also in agreement with this. Reevaluation(s) Time of Reevaluation #1: 13:41 Reevaluation #1: Have reviewed with Jose that her eosinophils are down from yesterday. The autoimmune test from admission are still pending, they should let her know if they are elevated or abnormal. At this time, see no further emergent workup that is necessary. She does not have a rash. She is ready to go home. We discussed further workup may be indicated but is outpatient basis at this time. I did review with Jose that if this would have been a new finding here today on her CBC, I in all likelihood may have not paid any attention to it given she does have underlying asthma. I do recommend that this is followed up though in clinic and she should schedule an outpatient follow-up with her primary. Vital Signs Vital signs: Initial Vital Signs Temperature 98 F 11/08/24 11:20 Temperature Source Temporal Artery Scan 11/08/24 11:20 Pulse Rate 91 11/08/24 11:20 Respiratory Rate 18 11/08/24 11:20 Blood Pressure 160/88 H 11/08/24 11:20 Blood Pressure Mean 112 H 11/08/24 11:20 Pulse Oximetry 97 11/08/24 11:20 Oxygen Delivery Method Room Air 11/08/24 11:20 Vital Signs Temperature 98 F 11/08/24 11:20 Pulse Rate 91 11/08/24 11:20 Respiratory Rate 18 11/08/24 11:20 Blood Pressure 160/88 H 11/08/24 11:20 Pulse Oximetry 97 11/08/24 11:20 Oxygen Delivery Method Room Air 11/08/24 11:20 Temperature 98 F 11/08/24 11:20 Pulse Rate 91 11/08/24 11:20 Respiratory Rate 18 11/08/24 11:20 Blood Pressure 160/88 H 11/08/24 11:20 Pulse Oximetry 97 11/08/24 11:20 Oxygen Delivery Method Room Air 11/08/24 11:20 Medical Decision Making Lab Data Lab results reviewed: Yes I reviewed the patient's lab results Labs: Lab Results 11/08/24 11/08/24 Range/Units 11:59 12:14 WBC 10.22 (4.50-11.00) K/uL RBC 4.57 (4.00-5.20) m/uL Hgb 14.0 (12.0-16.0) gm/dL Hct 42.3 (33.0-51.0) % MCV 93 (80-100) fL MCH 31 (26-34) pg MCHC 33 (32-36) gm/dL RDW Coeff of [place] 12.7 (11.5-15.5) % Plt Count 186 (140-440) K/uL Neut % (Auto) 43.2 (42.0-72.0) % Lymph % (Auto) 21.0 (20-44) % [place] % (Auto) 4.5 (0.0-11.0) % Eos % (Auto) 30.9 H (0.0-7.0) % Baso % (Auto) 0.3 (0.0-3.0) % Neut # (Auto) 4.41 (1.7-7.0) K/uL Lymph # (Auto) 2.15 (0.90-2.90) K/uL [place] # (Auto) 0.50 (0.00-0.90) K/UL Eos # (Auto) 3.20 H (0.00-0.50) K/uL Baso # (Auto) 0.03 (0.00-0.30) K/uL Abs Immat Gran (auto) 0.01 (0.00-0.30) K/uL Imm/Tot Granulo (auto) 0.1 % ESR 19 (2-20) mm/hr Sodium 139 (135-149) mmol/L Potassium 4.2 (3.6-5.1) mmol/L Chloride 104 (96-114) mmol/L Carbon Dioxide 29 (20-32) mmol/L Anion Gap 6 L (7-15) mEq/L BUN 16 (5-24) mg/dL Creatinine 0.7 (0.5-1.5) mg/dL Estimated Creat Clear 99.15 Estimated GFR 107 ml/min Glucose 90 (60-115) mg/dL Lactate 1.0 (0.5-1.9) mmol/L Calcium 9.4 (8.4-10.6) mg/dL Total Bilirubin 1.2 (0.1-1.5) mg/dL AST 27 (12-35) U/L ALT 20 (4-35) U/L Alkaline Phosphatase 96 (40-150) U/L Troponin I < 0.01 L (0.01-0.04) ng/mL C-Reactive Protein 1.4 H (0.5-1.0) mg/dL Total Protein 7.0 (6.0-8.3) g/dL Albumin 4.3 (3.3-5.0) g/dL Lipase 53 (23-300) U/L Urine Color Yellow (Yellow) Urine Appearance Clear (Clear) Urine pH 8.5 (5.0-8.5) Ur Specific [place] 1.020 (1.000-1.030) Urine Protein Negative (Negative) Urine Glucose (UA) Negative (Negative) Urine Ketones Negative (Negative) Urine Blood Negative (Negative) Urine Nitrite Negative (Negative) Urine Bilirubin Negative (Negative) Urine Urobilinogen 0.2 (0.2-1.0) Ur Leukocyte Esterase Negative (Negative) Urine RBC 0-2 (0-2) Urine WBC 0-2 (0-5) Ur Squamous Epith Cells Few (None-Few) Urine Bacteria None (None) Discharge Plan Discharge Clinical Impression: Numbness and tingling Eosinophilia Qualifiers: Eosinophilia type: unspecified eosinophilia Qualified Code(s): D72.10 - Eosinophilia, unspecified Patient Disposition: Home, Self-Care Condition: Stable Instructions: Paresthesia (ED) Additional Instructions: Do recommend that you schedule an outpatient follow-up with your primary care provider this week. Elevated eosinophils can be seen with people with asthma, especially if there is any allergic type component. At this point, await to the pending autoimmune tests that were drawn during the hospitalization. You should be notified by the hospitalists if any of these are abnormal. Activity Level: Activity as Tolerated Prescriptions: No Action cetirizine [Zyrtec] 10 mg tablet 10 mg PO DAILY albuterol sulfate 90 mcg/actuation HFA aerosol inhaler 2 puff inhalation Q4H PRN magnesium 250 mg tablet 250 mg PO HS citalopram 10 mg tablet 5 mg PO DAILY psyllium husk 3.4 gram/5.4 gram powder 1 tbsp PO DAILY Senna Plus 8.6-50 mg capsule 2 tab-cap PO BID PRN oxycodone 5 mg tablet 2.5 mg PO Q4H PRN lidocaine 4 % adhesive patch,medicated 1 patch TOPICAL Q24H Rx Instructions: Place 1 patch onto the skin every 24 hours To prevent lidocaine toxicity, patient should be patch free for 12 hrs daily. aspirin 81 mg Tablet,Delayed Release (Dr/Ec) 243 mg PO DAILY fluticasone furoate-vilanterol [Breo Ellipta] 200-25 mcg/dose blister with device 1 inh INHALATION DAILY trazodone 100 mg tablet 100 mg PO HS lorazepam 1 mg tablet 0.5 - 1 mg PO DAILY PRN (Reason: dizziness) levetiracetam [Keppra] 750 mg tablet 375 mg PO BID Follow Up/Referrals: EFRAÍN MAYA RA, BATCH RECORDS CLERK, SENIOR [employer]S ENG[employer]ER [Primary Care Provider] - Stand Alone Forms: PROFICIO Info Instructions
[2024-11-08 12:03] LABS: Basophils Absolute Auto 0.03 K/uL (0.00-0.30); Basophils Percent Auto 0.3 % (0.0-3.0); Eosinophils Percent Auto 30.9 % (0.0-7.0); Hematocrit 42.3 % (33.0-51.0); Immature Granulocytes Abs Auto 0.01 K/uL (0.00-0.30); Immature Granulocytes Pct Auto 0.1 %; Lymphocytes Absolute Auto 2.15 K/uL (0.90-2.90); Mean Corpuscular HGB Conc 33 gm/dL (32-36); Mean Corpuscular Hemoglobin 31 pg (26-34); Mean Corpuscular Volume 93 fL (80-100); Monocytes Percent Auto 4.5 % (0.0-11.0); Neutrophils Absolute Auto 4.41 K/uL (1.7-7.0); Neutrophils Percent Auto 43.2 % (42.0-72.0); Platelet Count* 186 K/uL (140-440); RDW Coefficient of Variation % 12.7 % (11.5-15.5); Red Blood Count 4.57 m/uL (4.00-5.20); White Blood Count* 10.22 K/uL (4.50-11.00)
[2024-11-08 12:22] LABS: Slide Review Reflex No
[2024-11-08 12:28] LABS: Appearance Urine Clear (Clear); Bilirubin Urine Negative (Negative); Blood Urine Negative (Negative); Color Urine Yellow (Yellow); Glucose Urine Negative (Negative); Ketones Urine Negative (Negative); Leukocyte Esterase Urine Negative (Negative); Nitrite Urine Negative (Negative); Protein Urine Negative (Negative); Urobilinogen Urine 0.2 (0.2-1.0); pH Urine 8.5 (5.0-8.5)
[2024-11-08 12:29] LABS: Albumin* 4.3 g/dL (3.3-5.0); Chloride* 104 mmol/L (96-114)
[2024-11-08 12:30] LABS: Potassium* 4.2 mmol/L (3.6-5.1); Sodium* 139 mmol/L (135-149)
[2024-11-08 12:32] LABS: Bilirubin Total* 1.2 mg/dL (0.1-1.5); Creatinine* 0.7 mg/dL (0.5-1.5); Est. Creatinine Clearance* 99.15; Estimated Glomerular Filt Rate 107 ml/min
[2024-11-08 12:33] LABS: Alanine Aminotransferase* 20 U/L (4-35); Alkaline Phosphatase* 96 U/L (40-150); Anion Gap 6 mEq/L (7-15); Aspartate Amino Transferase* 27 U/L (12-35); Blood Urea Nitrogen* 16 mg/dL (5-24); Calcium* 9.4 mg/dL (8.4-10.6); Carbon Dioxide* 29 mmol/L (20-32); Glucose* 90 mg/dL (60-115); Lipase* 53 U/L (23-300)
[2024-11-08 12:36] LABS: C Reactive Protein* 1.4 mg/dL (0.5-1.0)
[2024-11-08 12:39] LABS: RBC Urine 0-2 (0-2); Squamous Epithelial Cell Urine Few (None-Few); WBC Urine 0-2 (0-5)
[2024-11-08 12:45] LABS: Troponin I* < 0.01 ng/mL (0.01-0.04)
[2024-11-08 13:21] LABS: Erythrocyte SedimentationRate* 19 mm/hr (2-20)
== END 2024-11-08 13:50 | disposition home or self-care (01) ==
PROVIDERS: Emergency Provider Family Medicine; PCP Nurse Practitioner
DX: R20.2 Paresthesia of skin (principal); D72.10 Eosinophilia, unspecified
CPT/HCPCS: 36415; 80053; 81001; 83605; 83690; 84484; 85025; 85651; 86140; 99283; 99284

== ENCOUNTER 2024-11-11 10:08 | Emergency (ER) | payer OTHER, MEDICAID, SELFPAY ==
[2024-11-11] VITALS (24 sets, daily range): BP systolic 140–165; BP diastolic 89–102; PULSE 54–88; RESP 0–30; TEMP 36.9; O2SAT 92–98; BMI 31.9
--- NOTE | 2024-11-11 11:03 | ED_ITS ---
HPI - General Adult General Chief complaint: Chest Pain Stated complaint: Chest pain, nausea Time Seen by Provider: 11/11/24 11:02 History of Present Illness HPI narrative: Patient presents to the emergency department complaining of cheat pain and nausea. Patient states she woke up with chest pain in her back and it has progressed to the front. Nothing makes this pain better or worse and it is always presents . States she hasn't been ill up to this point with any other sym ptoms but the chest pain continues to progress. 49-year-old woman presenting to the emergency department with concern of redevelopment of chest pain. Woke this morning with pain particularly in her back. During conversation/interview it seems as if it is almost hard to speak due to the discomfort. This pain then made its way to the front. Has been evaluated for chest pain in the past. Pain has been persistent. underlying history of CVA. Was recently admitted with new numbness tingling in hands which has progressed through her extremities. Began to feel a similar and sharp sensation in the left side as well. She describes pings of pain around her left side. She is having pain in the chest or back radiate up into her neck as well. Also now feeling as if her entire body is puffy. she can not be comfortable in clothes that she was wearing yesterday. She already knows to avoid gluten. extensive past medical is reviewed. With hospitalization this last week received MRI MRA of the brain. No acute findings and no indication of neuromuscular disorder such as MS. history of Lizy-Danlos and fibromuscular dysplasia. She is no longer anticoagulated on anything but aspirin. No fever. No shortness of breath. No cough cold symptoms. Generally quite weak and fatigued but no focal weakness. No rashes described. She is particularly upset as until very recently had had a number of months symptom free and feeling quite well. Related Data Home Medications ?Medication ?Instructions ?Recorded ?Confirmed fluticasone furoate 200 1 inh inhalation DAILY 07/03/22 11/11/24 mcg-vilanterol 25 mcg/dose inhalation powder (Breo Ellipta) albuterol sulfate 90 mcg/actuation 2 puff inhalation Q4H PRN 08/01/22 11/11/24 aerosol inhaler magnesium 250 mg tablet 250 mg PO HS 08/02/22 11/11/24 trazodone 100 mg tablet 100 mg PO HS sleep 08/02/22 11/11/24 cetirizine 10 mg tablet (Zyrtec) 10 mg PO DAILY 10/08/23 11/11/24 lorazepam 1 mg tablet 0.5 - 1 mg PO DAILY PRN dizziness 05/07/24 11/11/24 levetiracetam 750 mg tablet 375 mg PO BID 05/08/24 11/11/24 (Keppra) citalopram 10 mg tablet 5 mg PO DAILY 09/20/24 11/11/24 aspirin 81 mg tablet,delayed 243 mg PO DAILY 11/05/24 11/11/24 release lidocaine 4 % topical patch 1 patch topical Q24H 11/05/24 11/11/24 oxycodone 5 mg tablet 2.5 mg PO Q4H PRN 11/05/24 11/11/24 psyllium husk 3.4 gram/5.4 gram 1 tbsp PO DAILY 11/05/24 11/11/24 oral powder sennosides 8.6 mg-docusate sodium 2 tab-cap PO BID PRN 11/05/24 11/11/24 50 mg capsule (Senna Plus) Allergies Allergy/AdvReac Type Severity Reaction Status Date / Time bupropion Allergy Intermediate Diarrhea Verified 11/11/24 10:19 codeine Allergy Intermediate epigastric Verified 11/11/24 10:19 pain erythromycin base Allergy Intermediate stomach Verified 11/11/24 10:19 upset, diarrhea doxycycline Allergy Mild burning Verified 11/11/24 10:19 sensation in hands and feet morphine AdvReac Verified 11/11/24 10:19 Review of Systems Status of ROS: Reports: 6 or more systems reviewed and unremarkable except as noted in History and below [facility] Medical History Ischemic cerebrovascular accident (CVA) (01/09/24) ?I63.9 - Cerebral infarction, unspecified (ICD-10) History of cerebrovascular disease ?Z86.79 - Personal history of other diseases of the circulatory system (ICD- 10) Dural arteriovenous fistula (~12/2023) ?I67.1 - Cerebral aneurysm, nonruptured (ICD-10) Fibromuscular dysplasia ?I77.3 - Arterial fibromuscular dysplasia (ICD-10) Seizure (01/14/24) ?R56.9 - Unspecified convulsions (ICD-10) History of cerebral angiography (01/09/24) ?Z98.890 - Other specified postprocedural states (ICD-10) Headache ?R51.9 - Headache, unspecified (ICD-10) 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, unspecified (ICD-10) Mild persistent asthma (09/27/22) ?J45.30 - Mild persistent asthma, uncomplicated (ICD-10) Asthma ?J45.909 - Unspecified asthma, uncomplicated (ICD-10) History of blood transfusion (1994) ?Z92.89 - Personal history of other medical treatment (ICD-10) History of vitamin D deficiency ?Z86.39 - Personal history of other endocrine, nutritional and metabolic disease (ICD-10) Anxiety and depression ?F41.9 - Anxiety disorder, unspecified (ICD-10) ?F32.A - Depression, unspecified (ICD-10) Fibromyalgia ?M79.7 - Fibromyalgia (ICD-10) H/O bronchopulmonary dysplasia ?Z87.09 - Personal history of other diseases of the respiratory system (ICD- 10) Stage 1 chronic kidney disease (11/16/20) ?N18.1 - Chronic kidney disease, stage 1 (ICD-10) Simple renal cyst (10/2020) ?N28.1 - Cyst of kidney, acquired (ICD-10) Asthma ?J45.909 - Unspecified asthma, uncomplicated (ICD-10) Surgical History History of laparoscopy ?Z98.890 - Other specified postprocedural states (ICD-10) S/P dilation and curettage (1994) ?Z98.890 - Other specified postprocedural states (ICD-10) H/O tubal ligation ?Z98.51 - Tubal ligation status (ICD-10) Status post excision of lipoma (2011) ?Z98.890 - Other specified postprocedural states (ICD-10) ?Z86.018 - Personal history of other benign neoplasm (ICD-10) History of medial meniscus repair of left knee (08/04/13) ?Z98.890 - Other specified postprocedural states (ICD-10) History of laparoscopic cholecystectomy (09/29/20) ?Z90.49 - Acquired absence of other specified parts of digestive tract (ICD- 10) History of hysterectomy for benign disease (2005) ?Z90.710 - Acquired absence of both cervix and uterus (ICD-10) History of catheter-based closure of atrial septal defect (06/2006) ?Z87.74 - Personal history of (corrected) congenital malformations of heart and circulatory system (ICD-10) Family History Maternal Grandmother Stroke Paternal Grandfather Diabetes Daughter Depression Social History Narrative: to Olaf (would be medical decision maker if needed), adult children 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 [employer] She has a college education Nonsmoker, no ETOH use What is your current living situation?: I presently have a place to live Problems where you live: no known problems Problems where you live details: N/A In the past 12 months, utilities in danger of being shut off: no In past 12 months, lack of transportation kept you from medical appts, meetings, work, or getting things needed for daily living: no In the past 12 mos, have been you worried that your food would run out before you had money to buy more?: never true In the past 12 mos, the food you bought just didn't last and you didn't have money to buy more?: never true Highest level of school completed/degree received: Associate degree: academic program Smoking Status: Never smoker Do you use any of these nicotine containing products: None Second hand tobacco smoke exposure: No How often do you have a drink containing alcohol: never How often do you have six or more drinks on one occasion: Never AUDIT-C Alcohol total score: 0 Non-prescribed substance use: denies use Caffeine: Yes How often does anyone, including family, friends and others, physically hurt you : never How often does anyone, including family, friends and others, insult or talk down to you: never How often does anyone, including family, friends and others, threaten you with harm: never How often does anyone, including family, friends and others, scream or curse at you: never Are you using contraception or practicing any form of control: Yes (hysterectomy) service: No Exam Narrative: Exam Narrative: Appears to be almost splinting her breathing or speaking is if it is uncomfortable. Otherwise deep breath did not appear to elicit pain. Neck is supple without lymphadenopathy. No supraclavicular crepitus. No reproducible pain to palpation about the back. Lungs are clear. Heart in regular rate and rhythm. No murmur appreciated. Extremities are without edema. She is moving all extremities without difficulty. Cranial nerves 2-12 are intact. Mouth sounds a little sticky. Abdomen is soft nontender. I am not clearly able to reproduce the pain as described in the mid left back. Well-perfused peripherally. Const: Vital Signs, click to edit/add: Vital Signs - 24 hr 11/11/24 10:12 11/11/24 13:30 11/11/24 14:00 Temperature 98.5 F Pulse Rate 69 73 Pulse Rate [Right Pulse Oximeter] 88 Respiratory Rate 18 13 24 Blood Pressure Blood Pressure [Ri ght Upper Arm] 165/93 H Pulse Oximetry 97 94 97 Oxygen Delivery Me thod Room Air 11/11/24 14:05 11/11/24 14:14 11/11/24 14:15 Temperature Pulse Rate 73 64 Pulse Rate [Right Pulse Oximeter] 84 Respiratory Rate 12 18 0 L Blood Pressure 140/101 H Blood Pressure [Ri ght Upper Arm] 140/102 H Pulse Oximetry 96 94 94 Oxygen Delivery Me thod Room Air 11/11/24 14:30 11/11/24 14:45 11/11/24 15:00 Temperature Pulse Rate 68 68 64 Pulse Rate [Right Pulse Oximeter] Respiratory Rate 29 H 23 27 H Blood Pressure Blood Pressure [Ri ght Upper Arm] Pulse Oximetry 96 95 96 Oxygen Delivery Me thod 11/11/24 15:15 11/11/24 15:30 11/11/24 15:45 Temperature Pulse Rate 69 65 66 Pulse Rate [Right Pulse Oximeter] Respiratory Rate 30 H 5 L 10 L Blood Pressure Blood Pressure [Ri ght Upper Arm] Pulse Oximetry 93 93 92 Oxygen Delivery Me thod 11/11/24 15:57 11/11/24 16:00 11/11/24 16:15 Temperature Pulse Rate 64 69 70 Pulse Rate [Right Pulse Oximeter] Respiratory Rate 15 Blood Pressure 142/89 H Blood Pressure [Ri ght Upper Arm] Pulse Oximetry 96 95 96 Oxygen Delivery Me thod 11/11/24 16:30 11/11/24 16:45 11/11/24 17:00 Temperature Pulse Rate 76 67 68 Pulse Rate [Right Pulse Oximeter] Respiratory Rate Blood Pressure Blood Pressure [Ri ght Upper Arm] Pulse Oximetry 98 94 93 Oxygen Delivery Me thod 11/11/24 17:15 11/11/24 17:30 11/11/24 17:45 Temperature 98.4 F Pulse Rate 68 76 69 Pulse Rate [Right Pulse Oximeter] Respiratory Rate 18 0 L Blood Pressure 140/89 H Blood Pressure [Ri ght Upper Arm] Pulse Oximetry 94 92 95 Oxygen Delivery Me thod 11/11/24 17:49 11/11/24 18:00 11/11/24 18:15 Temperature Pulse Rate 54 L 62 84 Pulse Rate [Right Pulse Oximeter] Respiratory Rate 5 L 8 L 0 L Blood Pressure 140/89 H Blood Pressure [Ri ght Upper Arm] Pulse Oximetry 95 94 94 Oxygen Delivery Me thod Documenting provider has reviewed patient's vital signs: yes Course Vital Signs Vital signs: Initial Vital Signs Temperature 98.5 F 11/11/24 10:12 Temperature Source Temporal Artery Scan 11/11/24 10:12 Pulse Rate 88 11/11/24 10:12 Pulse Rhythm Regular 11/11/24 10:12 Pulse Strength 3+ Normal 11/11/24 10:12 Respiratory Rate 18 11/11/24 10:12 Blood Pressure 165/93 H 11/11/24 10:12 Blood Pressure Mean 117 H 11/11/24 10:12 Blood Pressure Position Sitting 11/11/24 10:12 Pulse Oximetry 97 11/11/24 10:12 Oxygen Delivery Method Room Air 11/11/24 10:12 Vital Signs Temperature 98.5 F 11/11/24 10:12 Pulse Rate 88 11/11/24 10:12 Respiratory Rate 18 11/11/24 10:12 Blood Pressure 165/93 H 11/11/24 10:12 Pulse Oximetry 97 11/11/24 10:12 Oxygen Delivery Method Room Air 11/11/24 10:12 Temperature 98.4 F 11/11/24 17:30 Pulse Rate 84 11/11/24 18:15 Respiratory Rate 0 L 11/11/24 18:15 Blood Pressure 140/89 H 11/11/24 17:49 Pulse Oximetry 94 11/11/24 18:15 Oxygen Delivery Method Room Air 11/11/24 14:14 Medications Administered Medications: Discontinued Medications Generic Name Dose Route Start Last Admin Trade Name Lindsey PRN Reason Stop Dose Admin Hydromorphone HCl 0.5 mg 11/11/24 12:30 11/11/24 12:48 Hydromorphone 0.5 Mg/0.5 Ml Inj IVP 11/11/24 12:31 0.5 mg ONCE ONE Administration Sodium Chloride 500 mls @ 1,000 mls/hr 11/11/24 11:29 11/11/24 17:37 0.9 % Sodium Chloride 500 Ml IV 11/11/24 11:58 Infused .Q30M ONE Infusion Ketamine HCl 20 mg/ Sodium 100.2 mls @ 200.4 mls/hr 11/11/24 16:36 11/11/24 17:00 Chloride IVPB 11/11/24 16:37 200.4 mls/hr ONCE ONE Administration Ondansetron HCl 4 mg 11/11/24 11:29 11/11/24 12:31 Ondansetron 2 Mg/Ml Inj IVP 11/11/24 11:30 4 mg ONCE ONE Administration Medical Decision Making MDM Narrative Medical decision making narrative: does have a history of fibromuscular dysplasia and Liyz Danlos. Might have concern of vascular dissection this case. Will evaluate for ischemic chest pain as well. Likely difficult to explain the source of her discomfort today. She would appreciate something for nausea as well. I do offer something for anxiety but she says she is not anxious at home; she does not feel like that is the issue. Pulmonary embolus certainly possibility here as well though I think less likely. Pain complicated by fibromyalgia, central pain sensitization and anxiety I think. Certainly has been through a lot medically. Reporting increasing pain and discussed options. Settled on 0.5 mg of Dilaudid. PVCs are noted on monitor. Not clear that they correlate with chest discomfort Chest abdomen pelvis contrasted CT dissection protocol is requested. I did independently review images with most findings appear to be unclear changes in the lungs Radiology over-read below INDICATION: Intense chest and back pain. History Lizy-Danlos. COMPARISON: May 14, 2024 CT of the chest, abdomen, and pelvis TECHNIQUE: CT of the chest was performed without intravenous contrast. Subsequently CT angiogram of the chest, abdomen, and pelvis with intravenous contrast (95 milliliters Isovue [id number]) utilizing a dissection protocol was performed. Reconstructed images/MIPS were created. FINDINGS: THORAX: Airways: Small amount of secretions/debris in the trachea. Lungs: There are emphysematous changes in the lungs as well as mild multifocal scarring/atelectasis. Similar prominent region of geographic hyperlucent lung at the lateral portion of the right lower lobe presumably representing chronic air trapping. Pleura: No effusion. Lymph nodes: No bulky thoracic lymphadenopathy. Heart: Status post atrial septal defect repair. Aorta: No acute findings. Specifically, no dissection. Pulmonary artery: Normal caliber of the main pulmonary artery. Chest wall: Normal. Bones: Pectus excavatum. There are osseous degenerative changes. Incidental note is again made of vertebral body hemangiomas. ABDOMEN AND PELVIS: Liver: Smooth hepatic contour. No suspicious hepatic lesions are identified. Gallbladder and biliary tree: Status post cholecystectomy. Spleen: No splenomegaly. Pancreas: Normal. Adrenal glands: Normal. Kidneys and ureters: No hydroureteronephrosis. Small cyst at the right interpolar anterior kidney. Bladder: Unremarkable CT appearance. Visualized reproductive organs: Status post hysterectomy. Gastrointestinal tract: No focal abnormally dilated loops of bowel. There is colonic diverticulosis. Peritoneal cavity: No free fluid or free air. Lymph nodes: No enlarged abdominal or pelvic lymph nodes by CT size criteria. Vessels: No acute aortic findings. The major branches of the abdominal aorta are patent. Chronic very subtly beaded appearance of the right renal artery. No abdominal aortic aneurysm. Abdominal and pelvic wall: Small fat containing umbilical and periumbilical hernia. There is scarring in the ventral abdominal wall. Bones: There are osseous degenerative changes. IMPRESSION: 1. No acute findings. Specifically, no dissection. 2. Chronic very subtly beaded appearance of the right renal artery raises the possibility of fibromuscular dysplasia. 3. Please see above for several additional chronic and incidental findings. Please note that all CT scans at this facility use dose modulation, iterative reconstruction, and/or weight-based dosing when appropriate to reduce radiation dose to as low as reasonably achievable. Dictated by Anil Brown MD @ 11/11/2024 12:47:42 PM Labs are unremarkable/reassuring; pending urinalysis. Complaining of intense left-sided pressure intermittently that she says is correlating with alarming on monitor. I do spend some time reviewing the cardiac monitoring. There is movement artifact but otherwise only PVCs. They are not coupled/grouped Complaining of more intensifying left mid back area pain times radiating up her back or into her neck. See no evidence in CT imaging of what cause might be. Will need to just treat pain. She is also complaining of persistent nausea. Perhaps pain dose ketamine would be beneficial for both. May be improved though did note still with persistent pain. Is quite sleepy from medications. Says she does not particularly like this feeling. Vitals have been good and stable. Seeing some hematuria in the urine finally obtained, did review again images with radiologist with regard to renal collecting system. No stones are evident and no abnormality otherwise. No rib fracture in the area of persistent pain complaints. arrives. Vitals remain good and stable. I think there is nothing left to do emergently. I think is safe for discharge. See patient discharge plan for further recommendations Please follow-up in about a week with your primary care provider. I would recheck labs specifically including urinalysis for persistence of hematuria. Can return for increasing and persistent pain particularly accompanied by shortness of breath or lightheadedness or fever. Medical Records Medical records reviewed: Yes I reviewed the patient's medical records Lab Data Lab results reviewed: Yes I reviewed the patient's lab results Labs: Lab Results 11/11/24 11/11/24 11/11/24 Range/Units 11:34 11:50 13:41 WBC 8.05 (4.50-11.00) K/uL RBC 4.71 (4.00-5.20) m/uL Hgb 14.4 (12.0-16.0) gm/dL Hct 43.1 (33.0-51.0) % MCV 92 (80-100) fL MCH 31 (26-34) pg MCHC 33 (32-36) gm/dL RDW Coeff of Bárbara 12.3 (11.5-15.5) % Plt Count 208 (140-440) K/uL Neut % (Auto) 61.9 (42.0-72.0) % Lymph % (Auto) 27.5 (20-44) % Anderson % (Auto) 6.2 (0.0-11.0) % Eos % (Auto) 3.4 (0.0-7.0) % Baso % (Auto) 0.5 (0.0-3.0) % Neut # (Auto) 4.99 (1.7-7.0) K/uL Lymph # (Auto) 2.21 (0.90-2.90) K/uL Anderson # (Auto) 0.50 (0.00-0.90) K/UL Eos # (Auto) 0.27 (0.00-0.50) K/uL Baso # (Auto) 0.04 (0.00-0.30) K/uL Abs Immat Gran (auto) 0.04 (0.00-0.30) K/uL Imm/Tot Granulo (auto) 0.5 % ESR 18 (2-20) mm/hr D-Dimer Quant (PE/DVT) 0.59 H (0.00-0.50) ug/ml Sodium 140 (135-149) mmol/L Potassium 4.0 (3.6-5.1) mmol/L Chloride 103 (96-114) mmol/L Carbon Dioxide 28 (20-32) mmol/L Anion Gap 9 (7-15) mEq/L BUN 21 (5-24) mg/dL Creatinine 0.8 (0.5-1.5) mg/dL Estimated Creat Clear 86.75 Estimated GFR 91 ml/min Glucose 91 (60-115) mg/dL Calcium 9.5 (8.4-10.6) mg/dL Total Bilirubin 1.3 (0.1-1.5) mg/dL Direct Bilirubin 0.2 (0.0-0.5) mg/dL AST 23 (12-35) U/L ALT 19 (4-35) U/L Alkaline Phosphatase 94 (40-150) U/L Troponin I < 0.01 L (0.01-0.04) ng/mL C-Reactive Protein 1.0 (0.5-1.0) mg/dL NT-Pro-B Natriuret Pep 164 pg/mL Total Protein 7.5 (6.0-8.3) g/dL Albumin 4.5 (3.3-5.0) g/dL Urine Color (Yellow) Urine Appearance (Clear) Urine pH (5.0-8.5) Ur Specific [place] (1.000-1.030) Urine Protein (Negative) Urine Glucose (UA) (Negative) Urine Ketones (Negative) Urine Blood (Negative) Urine Nitrite (Negative) Urine Bilirubin (Negative) Urine Urobilinogen (0.2-1.0) Ur Leukocyte Esterase (Negative) Urine RBC (0-2) Urine WBC (0-5) Ur Squamous Epith Cells (None-Few) Urine Bacteria (None) POC Troponin I 0.02 0.00 L (0.01-0.04) ng/ml 11/11/24 Range/Units Unknown WBC (4.50-11.00) K/uL RBC (4.00-5.20) m/uL Hgb (12.0-16.0) gm/dL Hct (33.0-51.0) % MCV (80-100) fL MCH (26-34) pg MCHC (32-36) gm/dL RDW Coeff of Bár[place] (11.5-15.5) % Plt Count (140-440) K/uL Neut % (Auto) (42.0-72.0) % Lymph % (Auto) (20-44) % Anderson % (Auto) (0.0-11.0) % Eos % (Auto) (0.0-7.0) % Baso % (Auto) (0.0-3.0) % Neut # (Auto) (1.7-7.0) K/uL Lymph # (Auto) (0.90-2.90) K/uL Anderson # (Auto) (0.00-0.90) K/UL Eos # (Auto) (0.00-0.50) K/uL Baso # (Auto) (0.00-0.30) K/uL Abs Immat Gran (auto) (0.00-0.30) K/uL Imm/Tot Granulo (auto) % ESR (2-20) mm/hr D-Dimer Quant (PE/DVT) (0.00-0.50) ug/ml Sodium (135-149) mmol/L Potassium (3.6-5.1) mmol/L Chloride (96-114) mmol/L Carbon Dioxide (20-32) mmol/L Anion Gap (7-15) mEq/L BUN (5-24) mg/dL Creatinine (0.5-1.5) mg/dL Estimated Creat Clear Estimated GFR ml/min Glucose (60-115) mg/dL Calcium (8.4-10.6) mg/dL Total Bilirubin (0.1-1.5) mg/dL Direct Bilirubin (0.0-0.5) mg/dL AST (12-35) U/L ALT (4-35) U/L Alkaline Phosphatase (40-150) U/L Troponin I (0.01-0.04) ng/mL C-Reactive Protein (0.5-1.0) mg/dL NT-Pro-B Natriuret Pep pg/mL Total Protein (6.0-8.3) g/dL Albumin (3.3-5.0) g/dL Urine Color Yellow (Yellow) Urine Appearance Clear (Clear) Urine pH 5.5 (5.0-8.5) Ur Specific [place] 1.010 (1.000-1.030) Urine Protein Negative (Negative) Urine Glucose (UA) Negative (Negative) Urine Ketones Negative (Negative) Urine Blood 1+ A (Negative) Urine Nitrite Negative (Negative) Urine Bilirubin Negative (Negative) Urine Urobilinogen 0.2 (0.2-1.0) Ur Leukocyte Esterase Trace A (Negative) Urine RBC 2-5 A (0-2) Urine WBC 0-2 (0-5) Ur Squamous Epith Cells None (None-Few) Urine Bacteria Few A (None) POC Troponin I (0.01-0.04) ng/ml ECG Data Attestation: I personally reviewed and interpreted this ECG as follows: (EKG 1. Showed normal sinus rhythm with somewhat prominent P wave suggesting some atrial enlargement. No ischemic changes. Rate of 79 EKG 2. With similar somewhat prominent P wave. Normal sinus rhythm. No clear ischemic changes. Rate of 79) Discharge Plan Discharge Clinical Impression: Atypical chest pain, Hematuria Patient Disposition: Home w/ Parent or Adult Condition: Improved Additional Instructions: Please follow-up in about a week with your primary care provider. I would recheck labs specifically including urinalysis for persistence of hematuria. Can return for increasing and persistent pain particularly accompanied by shortness of breath or lightheadedness or fever. Prescriptions: No Action cetirizine [Zyrtec] 10 mg tablet 10 mg PO DAILY albuterol sulfate 90 mcg/actuation HFA aerosol inhaler 2 puff inhalation Q4H PRN magnesium 250 mg tablet 250 mg PO HS citalopram 10 mg tablet 5 mg PO DAILY psyllium husk 3.4 gram/5.4 gram powder 1 tbsp PO DAILY Senna Plus 8.6-50 mg capsule 2 tab-cap PO BID PRN oxycodone 5 mg tablet 2.5 mg PO Q4H PRN lidocaine 4 % adhesive patch,medicated 1 patch TOPICAL Q24H Rx Instructions: Place 1 patch onto the skin every 24 hours To prevent lidocaine toxicity, patient should be patch free for 12 hrs daily. aspirin 81 mg Tablet,Delayed Release (Dr/Ec) 243 mg PO DAILY fluticasone furoate-vilanterol [Breo Ellipta] 200-25 mcg/dose blister with device 1 inh INHALATION DAILY trazodone 100 mg tablet 100 mg PO HS lorazepam 1 mg tablet 0.5 - 1 mg PO DAILY PRN (Reason: dizziness) levetiracetam [Keppra] 750 mg tablet 375 mg PO BID Follow Up/Referrals: EFRAÍN MAYA RA, PHOTORESIST CONTACT PRINTER, HAIR DESIGNER [Primary Care Provider] - Stand Alone Forms: [employer] Info Instructions
[2024-11-11 12:00] LABS: Troponin, Point-of-Care* 0.02 ng/ml (0.01-0.04)
[2024-11-11 12:02] LABS: Basophils Absolute Auto 0.04 K/uL (0.00-0.30); Basophils Percent Auto 0.5 % (0.0-3.0); Eosinophils Absolute Auto 0.27 K/uL (0.00-0.50); Eosinophils Percent Auto 3.4 % (0.0-7.0); Hematocrit 43.1 % (33.0-51.0); Hemoglobin* 14.4 gm/dL (12.0-16.0); Immature Granulocytes Abs Auto 0.04 K/uL (0.00-0.30); Immature Granulocytes Pct Auto 0.5 %; Lymphocytes Absolute Auto 2.21 K/uL (0.90-2.90); Lymphocytes Percent Auto 27.5 % (20-44); Mean Corpuscular HGB Conc 33 gm/dL (32-36); Mean Corpuscular Hemoglobin 31 pg (26-34); Mean Corpuscular Volume 92 fL (80-100); Monocytes Percent Auto 6.2 % (0.0-11.0); Neutrophils Absolute Auto 4.99 K/uL (1.7-7.0); Neutrophils Percent Auto 61.9 % (42.0-72.0); Platelet Count* 208 K/uL (140-440); RDW Coefficient of Variation % 12.3 % (11.5-15.5); Red Blood Count 4.71 m/uL (4.00-5.20); White Blood Count* 8.05 K/uL (4.50-11.00)
[2024-11-11 12:05] LABS: Slide Review Reflex No
[2024-11-11 12:07] LABS: Albumin* 4.5 g/dL (3.3-5.0); Chloride* 103 mmol/L (96-114)
[2024-11-11 12:08] LABS: Sodium* 140 mmol/L (135-149)
[2024-11-11 12:10] LABS: Anion Gap 9 mEq/L (7-15); Bilirubin Direct* 0.2 mg/dL (0.0-0.5); Bilirubin Total* 1.3 mg/dL (0.1-1.5); Blood Urea Nitrogen* 21 mg/dL (5-24); Carbon Dioxide* 28 mmol/L (20-32); Creatinine* 0.8 mg/dL (0.5-1.5); Est. Creatinine Clearance* 86.75; Estimated Glomerular Filt Rate 91 ml/min
[2024-11-11 12:11] LABS: Alanine Aminotransferase* 19 U/L (4-35); Alkaline Phosphatase* 94 U/L (40-150); Aspartate Amino Transferase* 23 U/L (12-35); Calcium* 9.5 mg/dL (8.4-10.6); Glucose* 91 mg/dL (60-115); Total Protein* 7.5 g/dL (6.0-8.3)
[2024-11-11 12:12] LABS: D Dimer Quantitative* 0.59 ug/ml (0.00-0.50)
[2024-11-11 12:23] LABS: NT Pro B Type NatriureticPept* 164 pg/mL; Troponin I* < 0.01 ng/mL (0.01-0.04)
[2024-11-11] MEDS: ONDANSETRON 2 MG/ML inj 4 MG IVP (12:31)
[2024-11-11] MEDS: 0.9 % SODIUM CHLORIDE 500 ML 500 ML 1000 ML IV (12:31)
[2024-11-11] MEDS: HYDROmorphone 0.5 mg/0.5 ml inj IVP (12:48)
[2024-11-11 13:05] LABS: Erythrocyte SedimentationRate* 18 mm/hr (2-20)
[2024-11-11 15:57] LABS: Appearance Urine Clear (Clear); Bilirubin Urine Negative (Negative); Blood Urine 1+ (Negative); Color Urine Yellow (Yellow); Glucose Urine Negative (Negative); Ketones Urine Negative (Negative); Leukocyte Esterase Urine Trace (Negative); Nitrite Urine Negative (Negative); Protein Urine Negative (Negative); Urobilinogen Urine 0.2 (0.2-1.0); pH Urine 5.5 (5.0-8.5)
[2024-11-11 16:45] LABS: Bacteria Urine Few; WBC Urine 0-2 (0-5)
[2024-11-11] MEDS: KETAMINE 50 MG/0.5 ML 20 MG in 0.9 % SODIUM CHLORIDE 100 ml 100 ML 200.4 MG IVPB (17:00)
--- NOTE | 2024-11-13 14:06 | ED.NURSE ---
Pt called for UC results. Results reviewed with Pt. Referred to PCP with any f/u questions regarding medical advice.
== END 2024-11-11 18:30 | disposition home or self-care (01) ==
PROVIDERS: Emergency Provider Family Medicine; PCP Nurse Practitioner
DX: R07.89 Other chest pain (principal); R31.9 Hematuria, unspecified
CPT/HCPCS: 36415; 71275; 74174; 80048; 80076; 81001; 83880; 84484; 85025; 85379; 85651; 86140; 87086; 93005; 94761; 96361; 96374; 96375; 99284; 99285; J1171; J2405; J3490; J7030; Q9967

== ENCOUNTER 2024-11-13 16:22 | Outpatient (CLI) | payer OTHER, MEDICAID, SELFPAY ==
[2024-11-13 16:31] LABS: Blood Urea Nitrogen POC* 18 mg/dl (8-26); Carbon Dioxide Point of Care* 24 mmol/L (20-32); Chloride Point of Care* 101 mmol/L (98-109); Creatinine Point of Care* 0.8 mg/dl (0.6-1.3); Glucose IStat Point of Care 129 mg/dl (60-115); Ionized Calcium Point of Care* 1.22 mmol/L (1.11-1.33); Potassium Point of Care* 4.5 mmol/L (3.5-4.9); Sodium Point of Care* 138 mmol/L (138-146)
== END 2024-11-13 16:23 | disposition home or self-care (01) ==
LOC: NFLDUCREF 16:22
PROVIDERS: Visit Provider Nurse Practitioner Family
DX: R82.90 Unspecified abnormal findings in urine (principal)
CPT/HCPCS: 87086

== ENCOUNTER 2024-12-11 12:30 | Outpatient (RCR) | payer OTHER, MEDICAID, SELFPAY ==
--- NOTE | 2024-11-25 11:51 | SLP.EVAL ---
JUAN Bajwa Start: 11/18/24 13:30 Freq: Status: Active Protocol: Document 11/18/24 13:31 LE (Rec: 11/18/24 15:24 LE [id number]) E-signed By Luis Eduardo Altamirano, JUAN PRESCHOOL TEACHER'S ASSISTANT System Review History & Reason For Referral Type of Speech Evaluation Cognition Rehabilitation Order Evaluation and Treat Reason for Referral Return of stroke symptoms. Onset Date Of Patient's Problem 11/05/24 Medical Diagnosis History of CVA in December of 2023. Treatment Diagnosis Cognitive deficits Pertinent Medical History Per provider note from recent hospitalization on 11/05/24 Alcon Zamora is a 49 year old female who presented to the ER with an approximate 10 day history of feeling off. She' s had dizziness, concerns of decreased cognition, decreased balance (particularly when turning). Vision seems decreased peripherally, and she's intermittently had headaches (controlled with APAP). No falls. 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 CT angio exhibited incidental finding of fibromuscular dysplasia and a non occlusive dissection). Patient was seen by outpatient speech therapy after her initial stroke from 07/27/24 to 09/14/24. At the time of discharge from speech therapy, Alcon was working 16 hours per week and tolerating well and was planning on increasing to 20 hours per week. She felt she was doing well at her job and stated she was ready to discharge from speech therapy. Medications Reviewed. Pain Pain Location & Comments No pain. Hearing Information Hearing Status WNL Vision Information Vision Status Glasses Patient Orientation Orientation & Mental Status A&Ox4 PRESCHOOL TEACHER'S ASSISTANT Initial Assessment/POC Subjective Information Subjective/Pain Comment Patient speaking quietly and moving slowly. She reports having a very challenging week because she quit the job she loved on Saturday and is working on getting disability. When she increased her hours from 16 per week to 20 hours per week in September she noticed that her headaches were returning. She had a very flexible schedule and worked on different schedules in hopes of decreasing her symptoms. In October, she increased her hours to 24 per week and had such an increase in symptoms that she ended up in the ER. Assessment & Impression Rehabilitation Potential Comments Excellent rehab potential based on baseline level of functioning, progress she made in therapy after her initial stroke, motivation and family support. Assessment/Impression ASSESSMENT The Repeatable Battery for the Assessment of Neuropsychological Status ( RBANS) is a neuropsychological assessment that consists of twelve subtests which give five scores, one for each of the five domains tested ( immediate memory, visuospatial /constructional, language, attention, delayed memory). The RBANS was administered with the following results: Immediate Memory (index score= 73; 4th%ile) List Learnin/40 Story Memory: 07/09 Visuospatial/Constructional ( index score 84; 15th%ile) Figure Copy: Line Orientation: Language (index score=83; 14th %ile) Picture Namin/10 Semantic Fluency: Attention (index score=91; 27th%ile) Digit Span: 07/01 Codin/89 Delayed Memory (index score=92 ; 28th%ile) List Recall: 01/23 List Recognition: Story Recall: 02/25 Figure Recall: 09/04 Sum of Index Scores = 423 Total Scale = 80 (9th %ile) Subtest from the Cognitive Linguistic Quick Test (CLQT) were administered that look at executive functions. Symbol Trails: 06/25 Generative Namin/9 Mazes: 04/23 Design Generation: 06/28 Total=32 IMPRESSION: Patient was seen for a cognitive evaluation per provider orders. The RBANS and subtests of the CLQT were administered and results suggest that Alcon is demonstrating overall moderate high-level cognitive deficits across multiple domains, specifically in the areas of immediate memory, visuospatial /constructional, language, attention and delated memory. Executive function skills remain intact. 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 and is experiencing high levels of physical and cognitive fatigue and overload . Recommend outpatient speech therapy 1-2 times per week for 12 weeks to address deficit areas. 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 Goals/Functional Outcomes Patient goal: To be able to complete her day to day activities of managing her home. LTG: Patient will improve her cognitive and mental skills to be able to participate in home management tasks and return to enjoyed leisure activities. Will be measured by a reduction in her score on the head injury symptom scale (baseline 19 of 22 symptoms with a symptom severity score of 89). By 12/02/24... STG: Patient will verbalize understanding of results of assessment and treatment plan. GOAL MET 11/20/24. STG: Patient will be able to focus on and complete a 15 minute cognitive task per day with a decrease in recovery time after task (baseline 5 minute task with a 1.5 to 2 hour recovery time). STG: PRESCHOOL TEACHER'S ASSISTANT and patient will collaborate and develop a weekly schedule of daily home management tasks to better manage her household. ( baseline-only has her morning routine planned). STG: PRESCHOOL TEACHER'S ASSISTANT and patient will develop external memory and organizational strategies to help manage phone calls, emails, mail and other daily household tasks. STG: Patient will choose 5-10 easy recipes and collaboratively will develop a weekly menu, grocery list and list of what she can do to help prep for meal. Intervention Plan & Frequency Intervention Plan Evaluation ([id number] assessment; [id number] interpretation and report) Education Compensatory strategies Cognitive retraining Frequency/Duration 1-2 times per week for 12 weeks. Discharge Plan Patient Will be Discharged from Therapy Completion of LTG(s), Independent w/HEP Therapist Signature & License # I Certify That Therapy Plan Established, Therapy Plan Reviewed Therapist Signature & License Number Luis Eduardo Evelia [facility]GUET[facility]-PRESCHOOL TEACHER'S ASSISTANT # [id number] Certification Date Date of First Visit for Therapy 11/20/24 Clinic Certification # #[id number] Recertification Due Date 02/16/25 Physician Signature Signature of Physician Indicates Treatment Plan,Certification Plan,Medically Needed Services Physician Signature & Date Required Please Sign/Date Here Speech/Language Pathology Billing Units Billing Units Speech 1 Hr Cogn Perf Test 2
--- NOTE | 2024-12-21 11:10 | SLP.DC ---
ACCORDION TUNER Discharge ACCORDION TUNER Discharge Start: 12/21/24 10:51 Freq: Status: Active Protocol: Document 12/21/24 10:51 LE (Rec: 12/21/24 11:07 LE [email or web address]) E-signed By Luis Eduardo Altamirano, ACCORDION TUNER Speech Therapy Discharge Subjective Information Home Exercise/Recommendations Compliance Alcon was very consistent with her HEP and all suggestions that were given to her to implement at home. Visit Information Date of First Visit for Therapy 11/18/24 Date of Last Visit for Therapy 12/11/24 Number of Visits 7 Functional Status at Discharge Goals/Functional Outcomes Patient goal: To be able to complete her day to day activities of managing her home. Alcon has made great strides in getting back in to helping manage household duties. She is ordering groceries and assisting with meals ( was doing this prior to therapy), she is folding her laundry and doing more of the cleaning and organizing. This has reduced caregiver burden of her and makes her feel more normal that she was before she resumed therapy. LTG: Patient will report at or near baseline cognitive abilities. Alcon does not feel that she is at her baseline but feels about 60% back to normal. She has learned how to better manage her days to reduce fatigue and be able to do more around her home more consistently. By 12/04/24... STG: Patient will verbalize understanding of results of assessment and treatment plan. GOAL MET 11/20/24. STG: Patient will be able to focus on and complete one cognitive task for 15 minutes per day (baseline 5 minute task). GOAL MET 12/04/24. Patient reports doing 15 minutes cognitive tasks at least 2-3 times per day with rest breaks in between. STG: ACCORDION TUNER and patient will develop a weekly schedule of daily home management tasks to better manage her household and incrementally increase her physical and cognitive endurance and reduce her memory load. GOAL MET 12/04/24. Patient is using a daily schedule and completing several household tasks daily. STG: ACCORDION TUNER and patient will develop external memory and organizational strategies to help manage phone calls, emails, mail and other daily household tasks. GOAL MET 12/11. Alcon has improved organization in her home and developed daily routines that help her be more efficient with her daily household tasks and she reports being able to do so much more than she could prior to therapy. STG: Patient will choose 5-10 easy recipes and develop a menu and weekly grocery list. Goal added 11/23/24. GOAL MET . Alcon has two weeks of meal plans with grocery lists that she is using and reports that she and her will continue to develop more. Interventions Provided During Treatment Interventions Provided During ACCORDION TUNER Evaluation Treatment Education Compensatory strategies Organizational strategies Assessment Assessment/Impression Alcon continues to have moderate cognitive deficits that are greatly impacted by physical and mental fatigue. Her score on the Head Injury Symptom Scale went from a symptom severity score of 89 at the beginning of therapy to a score of 67 on a good day. She has fluctuations in her functional ability based on how busy she is. She continued to need to monitor and be intentional about how she organizes her day to reduce physical and mental fatigue. All short term goals were met (see above for details). Alcon is having a change of insurance and wished to discharge from speech therapy at this time. We did not complete reassessment with the [facility]ANS per patient request. She has learned and is following compensatory strategies well at home which is improving her function and reducing the caregiver burden on her . Recommendations/Reasons for Discharge Recommendations/Reason for Dischrge Other - Enter in Comments Discharge from Therapy Comments As above, Alcon wished to discharge from speech therapy at this time. She feels confident in what she has learned and plans to continue with these strategies at home. Therapist Signature and License # Therapist Signature/License Number Luis Eduardo Altamirano MS [facility]ACC[facility]UN[facility] # [id number]
== END 2024-12-23 13:17 | disposition home or self-care (01) ==
PROVIDERS: Visit Provider Family Medicine
DX: I69.818 Other symptoms and signs involving cognitive functions following other cerebrovascular disease (principal); Z51.89 Encounter for other specified aftercare
CPT/HCPCS: 96125; 97129; 97130

== ENCOUNTER 2025-03-09 10:11 | Emergency (ER) | payer BC, SELFPAY ==
--- OUTSIDE RECORDS SUMMARY | 2012-01-17 15:20 | XMS_ITS | Encounter Summary ---
Author Organization [facility] Address [address] [place] [address] Care Team Providers Care Timber Surveyor Name Role Phone Timmy Perez MD Unavailable Unavailable Encounter Details Date Type Department Care Team (Late Contact Info) Description 01/17/2012 3:20 PM CDT [facility] in [address] [phone] Luis Walsh [address] [place] [address] Interface, [place], Social History Tobacco Use Types Packs/Day Years Used Date Smoking Tobacco: Never Passive Smoke Exposure: Never Smokeless Tobacco: Never Alcohol Use Standard Drinks/Week Comments Not Currently 0 (1 standard drink = 0.6 oz pur e alcohol) minimal Comments No Sex and Gender Information Value Date Recorded Sex Assigned at Not on file Legal Sex 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 MANAGER CONTENT Gender Identity Not on file Sexual Orientation Not on file 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 Not on file Not on file Not on file Not on file Not on file Not on file documented as of this encounter Plan of Treatment Upcoming Encounters Date Type Department Care Team (Late st Contact Info) Description 03/16/2025 8:00 AM CDT Virtual Visit [facility] [address] [phone] Myles, Bindu, OD [address] [place] [address] Rubi Johnson, OT [facility] [address] [place] [address] 03/26/2025 12:45 PM CDT Therapy Visit [facility] [address] [place] [phone] Bindu Bueno, OD [address] [place] [address] Rubi Johnson, OT [address] [address] 04/02/2025 9:30 AM CDT Therapy Visit [address] [phone] Randy Maradiaga, DO [address] [place] [address] Delicia George, PT [address] [place] [address] 04/06/2025 11:00 AM CDT Virtual Visit [address] [phone] Bindu Bueno, OD [address] [place] [address] Rubi Johnson, OT [address] [address] 04/06/2025 12:30 PM CDT Therapy Visit [address] [phone] Randy Maradiaga, DO [address] [place] [address] Delicia George, PT [address] [place] [address] 04/16/2025 11:00 AM CDT Therapy Visit [address] [phone] Bindu Bueno, OD [address] [place], [place] [phone] Rubi Johnson, OT [address] [address] 04/23/2025 12:45 PM CDT Therapy Visit [address] [phone] Bindu Bueno, OD [address] [place] [address] Rubi Johnson, OT [address] [address] 04/23/2025 2:00 PM CDT Therapy Visit [address] [phone] Randy Maradiaga, DO [address] [place] [address] Delicia George, PT 150 [facility] [place] [address] 04/30/2025 10:15 AM CDT Therapy Visit [address] [phone] Randy Maradiaga, DO [address] [place] [address] Delicia George, PT [address] [place] [address] 05/04/2025 11:00 AM CDT Virtual Visit [address] [phone] Bindu Bueno, OD [address] [place] [address] Rubi Johnson, [address] [address] 05/07/2025 10:15 AM CDT Therapy Visit [address] [phone] Randy Maradiaga, DO [address] [place] [address] Delicia George, PT [address] [place] [address] 05/14/2025 10:15 AM CDT Therapy Visit [address] [phone] Randy Maradiaga, DO [address] [place] [address] Delicia George, PT [address] [place], [place] [address] 05/14/2025 11:00 AM CDT Therapy Visit [facility] [address] [phone] Bindu Bueno, OD 9 [place] [address] Rubi Johnson, OT [address] [address] 06/01/2025 11:15 AM CDT Appointment [facility] [address] [place] [phone] Robin Zepeda MD [address] [place] [address] 06/02/2025 2:20 PM CDT Virtual Visit [facility] Neurosurgery [address] [phone] Robin Zepeda MD [address] [place] [address] 07/01/2025 12:00 PM CDT Virtual Visit [facility] Physical Medicine and Rehabilitation [address] [phone] Santa Menon, PA-C [address] [place] [address] 08/03/2025 4:30 PM MANAGER CONTENT Virtual Visit [facility] [address] [place] [phone] Any Joiner MD [address] [facility] [address] [place] [address] documented as of this encounter Visit Diagnoses Not on filedocumented in this encounter Additional Health Concerns Infection Onset Date Last Indicated Resolved Time Rule Out COVID-19 09/13/2024 09/13/2024 09/13/2024 12:31 PM MANAGER CONTENT Rule Out COVID-19 11/14/2024 11/14/2024 11/14/2024 8:25 PM MANAGER CONTENT documented as of this encounter Care Teams Timber Surveyor Relationship Specialty Start Date End Date Timmy Perez MD PCP - Obstetrics/Gynecology 03/02/08/10/31 documented as of this encounter
--- OUTSIDE RECORDS SUMMARY | 2024-12-01 11:00 | XMS_ITS | Encounter Summary ---
Author Organization [place] Address [address] [place] [address] Care Team Providers Care Development Associate Name Role Phone Winston Villatoro OD Unavailable [phone] Denise Woodson APRN TANK TRUCK LOADER Unavailable [phone] Denise Woodson APRN TANK TRUCK LOADER Primary Care Provider Usha Simon APRN TANK TRUCK LOADER Unavailable + [phone] Dangelo Salinas MD Unavailable Anastasia Stearns RN Unavailable [phone] Germaine Aleman CHW Unavailable [phone] Joya Lira RP Unavailable [phone] Joya Lira [facility] Unavailable [phone] Fabi Coates MD Unavailable [phone] Danna Cardenas PA-C Unavailable [phone] SinanselmoledyLorrieabilio CHASSIS ENGINEER Unavailable [phone] Randy Maradiaga DO Unavailable + Tete Wang MD Unavailable [phone] Dahlia Joyce MD Unavailable [phone] Lisa Zambrano MD Unavailable + [phone] Tete Wang MD Unavailable [phone] Reason for Referral * Consultation (Routine: Next available opening) - Pending Review Specialty Diagnoses / Procedures Referred By Contlandon t Referred To Contact Diagnoses Dyspepsia Fibromuscular dysplasia EDS (Lizy-Danlos syndrome) Cerebrovascular accident (CVA), unspecified mechanism (H) ASD (atrial septal defect) Hyperlipidemia LDL goal <70 Lisa Zambrano MD [address] [place] [address] Phone: tel: fax: Referral ID Status Reason Start Date Expiration Date V isits Requested Visits Authorized [id number] Pending Review 02/02/2025 02/02/2026 1 1 Question Answer New or return visit? Return Appt Length 30 Min To be seen by Dr. 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; EDS (Lizy-Danlos syndrome); Cerebrovascular accident (CVA), unspecified mechanism (H); ASD (atrial septal defect) amplatzer septal occluder- serial #[id number] ( 06/2006); Hyperlipidemia LDL goal <70 Social History Tobacco Use Types Packs/Day Years Used Date Smoking Tobacco: Never Passive Smoke Exposure: Never Smokeless Tobacco: Never Alcohol Use Standard Drinks/Week Comments Not Currently 0 (1 standard drink = 0.6 oz pur e alcohol) minimal Social Connection and Isolation Panel [NHANES] A nswer Date Recorded Frequency of Communication with Friends and Fami ly Not on file 01/22/2025 How often do you get together with friends or re latives? 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 [employer] Not on file 01/22 Active Member of Clubs or Organizations Not on f ile 01/22/2025 Attends Club or Organization Meetings Not on reddy e 01/22/2025 Marital Status Not on file 01/22/2025 AUDIT-C Answer Date Recorded Q1: How often do you have a drink containing alcohol? Never 02/28/2024 Q2: How many drinks containi ng alcohol do you have on a typical day when you are drinking? Patient does not drink Q3: How often do you have si x or more drinks on one occasion? Never 02/28/2024 PHQ-2 Answer Date Recorded PHQ-2 Score 3 01/25/2025 [facility] - Occupational Stress Questionnaire Answer Date Recorded Do you feel stress - tense, restless, nervous, or anxious, or unable to sleep at night because your mind is troubled all the time - these days? To some extent 01/22/2025 Exercise Vital Sign Answer Date Recorde d On average, how many days pe r week do you engage in moderate to strenuous exercise (like a brisk walk)? 0 days 01/22/2025 On average, how many minutes do you engage in exercise at this level? 0 min 01/22/2025 Adolescent Education Answer Date Record ed Getting School Help Needed Not on file 07/01 Food Insecurity Answer Date Recorded Within the past 12 months, d id you worry that your food would run out before you got money to buy more? No 01/22/2025 Within the past 12 months, d id the food you bought just not last and you didn t have money to get more? No 01/22/2025 Housing Stability Answer Date Recorded Do you have housing? (Housin g is defined as stable permanent housing and does not include staying outside in a car, in a tent, in an abandoned building, in an overnight custodial, or couch-surfing.) Yes 01/22/2025 Are you worried about losing your housing? No 01/22/2025 Financial Resource Strain Answer Date R ecorded Within the past 12 months, h ave you or your family members you live with been unable to get utilities (heat, electricity) when it was really needed? No 01/22/2025 Transportation Needs Answer Date Record ed Within the past 12 months, h as lack of transportation kept you from medical appointments, getting your medicines, non-medical meetings or appointments, work, or from getting things that you need? 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 Not on file Not on file Not on file Not on file Not on file Not on file Not on file documented as of this encounter Patient Instructions * Patient Instructions* Lisa Zambrano MD - 12/01/2024 11:00 AM CDT Follow up with genetics as planned next week Since you are not able to handle aspirin 162 mg take 81 mg daily with food and take pepcid AC 20 mgtwo times a day , new Rx sent For eosinophilia see primary/police dispatcher etc Video visit in 3-4 months documented in this encounter Progress Notes * Lisa Zambrano MD - 12/01/2024 11:00 AM CDT Virtual Visit Details Type of service: Video Visit Originating Location (pt. 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 Recent CTA of abdomen showed right renal artery beaded appear ance consistent with FMD she also developed seizures . She has been followed by neurology service Dr. Marisol Hui here forfurther evaluation and management for FMD etc.. She is taking aspirin 162 mg daily and this is causing stomach upset and stopped few days ago Recently admitted aspiration related pneumonia and treated with some steroids. She also developed eosinophilia and she took on and off steroids which helped but worsened dyspepsia She has a history of DJD of the cervical spine and she goes for neck massages. She underwent COL3A1 testing at [facility] which was negative in 2018 She is scheduled to see genetics department at [facility] next week Review of systems: Reviewed all 12 point review of systems as per HPI otherwise unremarkable Physical exam:( no physical exam done this is virtual visit) Reviewed recent laboratory tests, imaging studies in the [facility] and updated chart Assessment and plan: 1. Dyspepsia (Primary) - famotidine (PEPCID) 20 MG tablet; Take 1 tablet (20 mg) by mouth 2 times daily. Dispense: 60 tablet; Refill: 5 2.. Fibromuscular dysplasia (H24) ?? on cerbral angio Rt ICA dissection [facility] thnesubsequent head and neck CTA negative X 2 , CT abdomen recently revealed beaded appearance of rightrenal artery consistent with FMD 3. Hyperlipidemia LDL goal <70 4. ASD (atrial septal defect) amplatzer septal occluder- serial #[id number] ( 06/2006) 5. Cerebrovascular accident (CVA), unspecified mechanism (H) 12/2023 ? 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 EDS (Lizy-Danlos syndrome) diagnosed at [facility] 2018 - Adult Genetics & Metabolism Pin Game Machine Inspector Referral; Future Beighton score of 5 Recently noted ICA dissection and cerebral angiogram 7. Eosinophilia ? Etiology For full details please see my initial consult note on May 01, 2024 This is a very pleasant 49-year-old female with complex and complicated past medical and past surgical history including the left sigmoid dural aVF she underwent cerebral angiogram in December 2023 at [facility] unfortunately postprocedural stroke and noted right-sided ICA dissection and FMD changes. She underwent subsequent CT of head and neck x 2 which were negative for FMD . Subsequent CTA chest abdomen pelvis no FMD changes but most recent CT abdomen revealed FMD changes of right renal artery in October 2024 She has a hyperextensibility of the joints with positive thumb sign and elbow sign during last office visit In 2018 she was diagnosed EDS at [facility]. COL3A1 test was negative. She has a 3 grownup children. No previous organ rupture or blood vessel rupture. History of ASD which was closed in 2005 at [facility]. She was also doing deep neck massages for DJD of the spine for some time, stopped since last visit She was taking aspirin 162 mg which causing dyspepsia and also she took intermittently prednisone as well after stopping the aspirin symptoms improved She developed eosinophilia after aspiration pneumonia Reviewed recent hospitalization records imaging [facility] in [facility] Given her unusual clinical situation of dural aVF, ASD, FMD changes, EDS features, referral to see genetics department last office visit and she is scheduled to see them next week at [facility] Since she is not able to handle 162 mg aspirin reduce dose to 81 mg and initiate pepcid ac 20 mg twice a day Currently followed by neurology/stroke service For eosinophilia suggested patient to follow-up with the primary care provider and consider seeing police dispatcher etc. Avoid any type of deep massages or chiropractic manipulations Avoid sudden jerky neck movements Video visit with me in 3 to 4 months Video Visit Details Type of Service: Video Visit Video Start Time: 11:05 AM Video End Time: 11:38 AM Total 40 minutes spent on the date of the encounter doing chart review, review of recent hospitalization records, outside records, imaging studies, history, documentation and addressed above-mentioned issues she had a lot of questions all of them were answered. AVS with written instructions done The longitudinal care of plan for the above diagnoses was addressed during this visit. Due to addedcomplexity of care, we will continue to supprt Alcon Martines Noah and the subsequent management of this/these conditions and with ongoing continuity of care for this/these conditions. Originating Location (patient location): Home Distant Location (provider location): [facility] Mode of Communication: Video Conference via [employer] This visit is being conducted as a virtual visit due to the emphasis on mitigation of the COVID-19 virus pandemic. The clinician has decided that the risk of an in-office visit outweighs the benefit for this patient. Lisa Zambrano MD documented in this encounter Miscellaneous Notes * Addendum Note - Blaze France RN - 12/01/2024 11:00 AM CDTAddended by: BLAZE FRANCE on: 02/02/2025 03:32 PM Modules accepted: Orders documented in this encounter Plan of Treatment Upcoming Encounters Date Type Department Care Team (Late st Contact Info) Description 03/16/2025 8:00 AM CDT Virtual Visit [address] [phone] Bindu Bueno, OD [address] [place], [place] [phone] Rubi Johnson, OT VALARIE DYER[address] [id number] 03/26/2025 12:45 PM CDT Therapy Visit [address] [phone] Bindu Bueno, OD [address] [place] [address] Rubi Johnson, OT [address] [address] 04/02/2025 9:30 AM CDT Therapy Visit [address] [phone] Randy Maradiaga, DO [address] [place] [address] Delicia George, PT [address] [place] [address] 04/06/2025 11:00 AM CDT Virtual Visit [address] [phone] Bindu Bueno, OD [address] [place] [address] Rubi Johnson, OT [address] [address] 04/06/2025 12:30 PM CDT Therapy Visit [address] [phone] Randy Maradiaga, DO [address] [place] [address] Delicia George, PT [address] [place] [address] 04/16/2025 11:00 AM CDT Therapy Visit [facility] [address] [place] [phone] Bindu Bueno, OD [address] [place], [place] [address] Rubi Johnson, OT [address] [address] 04/23/2025 12:45 PM CDT Therapy Visit [address] [phone] Bindu Bueno, OD [address] [place] [address] Rubi Johnson, OT [address] [address] 04/23/2025 2:00 PM CDT Therapy Visit [address] [phone] Randy Maradiaga, DO [address] [place] [address] Delicia George, PT [address] [place] [address] 04/30/2025 10:15 AM CDT Therapy Visit [address] [phone] Randy Maradiaga, DO [address] [place] [address] Delicia George, PT [address] [facility] [place] [address] 05/04/2025 11:00 AM CDT Virtual Visit [address] [phone] Magali Buenoissa, OD [address] [place], [place] [address] Rubi Johnson, OT [facility] [address] [address] 05/07/2025 10:15 AM CDT Therapy Visit [address] [phone] Randy Maradiaga, DO [address] [place] [address] Delicia George, PT [address] [place] [address] 05/14/2025 10:15 AM CDT Therapy Visit [address] [phone] Randy Maradiaga, DO [address] [place] [address] Delicia George, PT [address] [place] [address] 05/14/2025 11:00 AM CDT Therapy Visit [address] [phone] Bindu Bueno, OD [address] [place] [address] Rubi Johnson, OT [facility] [address] [place] [address] 06/01/2025 11:15 AM CDT Appointment [facility] [address] [place] [phone] Robin Zepeda MD [address] [place] [address] 06/02/2025 2:20 PM CDT Virtual Visit [facility] [address] [phone] Robin Zepeda MD [address] [place] [address] 07/01/2025 12:00 PM CDT Virtual Visit [facility] [address] [phone] [place], PANilesC [address] [place] [address] 08/03/2025 4:30 PM SECURITY SOLUTIONS ARCHITECT Virtual Visit [facility] [address] [phone] Any Joiner MD [address] [facility] [address] [place], [place] [phone] Scheduled Referrals Name Type Priority Associated Diagnoses Orde r Schedule Follow-Up with Vascular Medicine Referral Routine: Next available opening Dyspepsia Fibromuscular dysplasia, 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) Cerebrovascular accident (CVA), unspecified mechanism (H) ASD (atrial septal defect) amplatzer septal occluder- serial #[id number] ( 06/2006) Hyperlipidemia LDL goal <70 Expected: 03/05/2025 (Approximate), Expires: 02/02/2026 documented as of this encounter Visit Diagnoses Diagnosis Dyspepsia- Primary Dyspepsia and other specified disorders of function of stomach Fibromuscular dysplasia, 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 Other specified disorders of arteries and arterioles EDS (Lizy-Danlos syndrome) Lizy-Danlos syndrome Cerebrovascular accident (CVA), unspecified mechanism (H) ASD (atrial septal defect) amplatzer septal occluder- serial #[id number] ( 06/2006) Ostium secundum type atrial septal defect Hyperlipidemia LDL goal <70 Other and unspecified hyperlipidemia documented in this encounter Additional Health Concerns Assessment Noted Time PHQ-9 Depression Total Score: 0 09/18/19 25 12:46 PM SECURITY SOLUTIONS ARCHITECT documented as of this encounter Care Teams Development Associate Relationship Specialty Start Date End Date Winston Villatoro OD [facility] [address] [facility] [address] [place] [address] PCP - Ophthalmology Ophthalmology 02/11/13 Denise Woodson APRN TANK TRUCK LOADER [address] [address] PCP - General Family Practice 09/21/20 Denise Woodson APRN TANK TRUCK LOADER [address] [place] [address] Assigned PCP 07/17/20 Usha Simon APRN TANK TRUCK LOADER [address] [facility], [place] [address] Nurse Practitioner Neurological Surgery 01/24/24 Dangelo Salinas MD [address] [place], [place] [phone] Neurology 01/27/24 Anastasia Stearns, RN Lead Mines Safety Engineer 02/06/24 12/17/24 Germaine Aleman, W Community Health Worker Primary Care - CC 02/18/2412/17/24 Joya Lira [facility] [address] [place] [address] Pharmacist Pharmacist 05/25/24 Joya Lira [facility] [address] [place] [address] Assigned MTM Pharmacist 06/08/24 Fabi Coates MD [address] [place] [address]115 Genetics, Clinical 06/18/24 Danna Cardenas PA-C [address] [place] [address] [id number] Assigned Heart and Vascular Provider 07/08/24 12/05/24 Arthur Salas, [facility] [address] [phone] Assigned Behavioral Health Provider 08/08/24 Randy Maradiaga DO [address] [place], [place] [phone] Assigned Neuroscience Provider 08/08/24 [place] [address] [place] [address] [phone] Genetics, Clinical 10/30/24 Dahlia Joyce MD [address] [place], [place] [phone] Radiology Neuroradiology 11/17/24 Lisa Zambrano MD [address] 855465 Assigned Heart and Vascular Provider 12/06/24 Tete Wang MD [address] [place] [address] Assigned Pediatric Specialist Provider 01/06/25 documented as of this encounter
--- OUTSIDE RECORDS SUMMARY | 2025-01-25 11:00 | XMS_ITS | Encounter Summary ---
Author Organization [place] Address [address] [place] [address] Care Team Providers Care National Stormwater Leader Name Role Phone Shauna Winston Se OD Unavailable [phone] Denise Woodson APRN GROUP PROGRAM MANAGER Unavailable [phone] Denise Woodson APRN GROUP PROGRAM MANAGER Primary Care Provider Usha Simon APRN GROUP PROGRAM MANAGER Unavailable + [phone] Dangelo Salinas MD Unavailable Joya Lira RP Unavailable [phone] Joya Lira [facility] Unavailable [phone] Fabi Coates MD Unavailable [phone] Sinyigaya, Specmadi ONSITE CASE MANAGER Unavailable [phone] Randy Maradiaga DO Unavailable + Tete Wang MD Unavailable [phone] Dahlia Jocye MD Unavailable [phone] Lisa Zambrano MD Unavailable + [phone] Tete Wang MD Unavailable [phone] Encounter Details Date Type Department Care Team (Late st Contact Info) Description 01/25/2025 11:00 AM CDT Lab [facility] [address] [place] [phone] BPD (bronchopulmonary dysplasia) (H); Flank pain; Idiopathic hypereosinophilic syndrome Social History Tobacco Use Types Packs/Day Years [...] re latives? 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 Not on file Not on file Not on file Not on file Not on file Not on file Not on file documented as of this encounter Plan of Treatment Upcoming Encounters Date Type Department Care Team (Late st Contact Info) Description 03/16/2025 8:00 AM CDT Virtual Visit [address] [phone] Bindu Bueno, OD [address] [place], [place] [address] Rubi Johnson, OT [facility] [address] [place] [address] 03/26/2025 12:45 PM CDT Therapy Visit [facility] [address] [place] [phone] Bindu Bueno, OD [address] [place] [address] Rubi Johnson, OT [address] [address] 04/02/2025 9:30 AM CDT Therapy Visit [address] [phone] Randy Maradiaga, DO [address] [place] [address] Delicia George, PT [address] [place] [address] 04/06/2025 11:00 AM CDT Virtual Visit [address] [phone] Bindu Bueno, OD [address] [place] [address] Rubi Johnson, OT [address] [address] 04/06/2025 12:30 PM CDT Therapy Visit [address] [phone] Randy Maradiaga, DO [address] [place] [address] Delicia George, PT [address] [place] [address] 04/16/2025 11:00 AM CDT [facility] [address] [place] [phone] Bindu Bueno, OD [address] [place], [place] [phone] Rubi Johnson, OT [address] [address] 04/23/2025 12:45 PM CDT Therapy Visit [address] [phone] BuenoBindu, OD [address] [place] [address] Rubi Johnson, OT [address] [address] 04/23/2025 2:00 PM CDT Therapy Visit [address] [phone] Randy Maradiaga, DO [address] [place] [address] Delicia George, PT [address] [place] [address] 04/30/2025 10:15 AM CDT Therapy Visit [address] [phone] Randy Maradiaga, DO [address] [place] [address] Delicia George, PT [address] [place] [address] 05/04/2025 11:00 AM CDT Virtual Visit [address] [phone] Myles Bindu, OD [address] [place], [place] [address] Rubi Johnson, [address] [address] 05/07/2025 10:15 AM CDT Therapy Visit [address] [phone] Randy Maradiaga, DO [address] [place] [address] Delicia George, PT [address] [place] [address] 05/14/2025 10:15 AM CDT Therapy Visit [address] [phone] Randy Maradiaga, DO [address] [place] [address] Delicia George, PT [address] [place] [address] 05/14/2025 11:00 AM CDT Therapy Visit [facility] [address] [place] [phone] Myles Bindu, OD [address] [place] [address] Rubi Johnson, OT [facility] [address] [place] [address] 06/01/2025 11:15 AM CDT Appointment [facility] [address] [place] [address] [place] [phone] Robin Zepeda MD [address] [place] [address] 06/02/2025 2:20 PM CDT Virtual Visit [facility] [address] [phone] Robin Zepeda MD [address] [place] [address]84[address] 07/01/2025 12:00 PM CDT Virtual Visit [facility] [address] [phone] Santa Menon PA-C [address] [place] [phone] 08/03/2025 4:30 PM ACTOR UNDERSTUDY Virtual Visit [facility] [address] [phone] Any Joiner MD [address] [facility] [address] [place], [place] [address] (work) documented as of this encounter Procedures Procedure Name Priority Date/Time Associated Diagnosis Comments CBC WITH PLATELETS AND DIFFERENTIAL Routine 01/25/2025 11:24 AM CDT BPD (bronchopulmonary dysplasia) (H) Flank pain Idiopathic hypereosinophilic syndrome ANCA IGG BY IFA WITH REFLEX TO TITER Routine 01/25/2025 11:24 AM CDT BPD (bronchopulmonary dysplasia) (H) Flank pain Idiopathic hypereosinophilic syndrome CBC WITH PLATELETS & DIFFERENTIAL Routine 01/25/2025 11:24 AM CDT BPD (bronchopulmonary dysplasia) (H) Flank pain Idiopathic hypereosinophilic syndrome IGE Routine 01/25/2025 11:24 AM CDT BPD (bronchopulmonary dysplasia) (H) Flank pain Idiopathic hypereosinophilic syndrome CRP INFLAMMATION Routine 01/25/2025 11:2 4 AM CDT BPD (bronchopulmonary dysplasia) (H) Flank pain Idiopathic hypereosinophilic syndrome URINE MACROSCOPIC WITH REFLEX TO MICRO Routine 01/25/2025 10:42 AM CDT BPD (bronchopulmonary dysplasia) (H) Flank pain Idiopathic hypereosinophilic syndrome URINE MICROSCOPIC EXAM Routine 01/25/2025 10:42 AM CDT BPD (bronchopulmonary dysplasia) (H) Flank pain Idiopathic hypereosinophilic syndrome documented in this encounter Results * CBC with platelets and differential (01/25/2025 11:24 AM CDT) WBC Count 6.6 4.0 - 11.0 10e3/uL 01/25/2025 11:26 AM CDT LABORATORY RBC Count 4.39 3.80 - 5.20 10e6/uL 01/25/2025 11:26 AM CDT LABORATORY Hemoglobin 13.5 11.7 - 15.7 g/dL 01/25/2025 11:26 AM CDT LABORATORY Hematocrit 40.5 35.0 - 47.0 % 01/25/2025 11:26 AM CDT LABORATORY MCV 92 78 - 100 fL 01/25/2025 11:26 AM CDT RM LABORATORY MCH 30.8 26.5 - 33.0 pg 01/25/2025 11:26 AM CDT RM LABORATORY MCHC 33.3 31.5 - 36.5 g/dL 01/25/2025 11:26 AM CDT RM LABORATORY RDW 12.0 10.0 - 15.0 % 01/25/2025 11:26 AM CDT RM LABORATORY Platelet Count 181 150 - 450 10e3/uL 01/25/2025 11:26 AM CDT RM LABORATORY % Neutrophils 58 % 01/25/2025 11:26 AM CDT RM LABORATORY % Lymphocytes 29 % 01/25/2025 11:26 AM CDT RM LABORATORY % Monocytes 8 % 01/25/2025 11:26 AM CDT RM LABORATORY % Eosinophils 5 % 01/25/2025 11:26 AM CDT RM LABORATORY % Basophils 0 % 01/25/2025 11:26 AM CDT RM LABORATORY % Immature Granulocytes 0 % 01/25/2025 11:26 AM CDT RM LABORATORY Absolute Neutrophils 3.8 1.6 - 8.3 10e3/uL 01/25/2025 11:26 AM CDT RM LABORATORY Absolute Lymphocytes 1.9 0.8 - 5.3 10e3/uL 01/25/2025 11:26 AM CDT RM LABORATORY Absolute Monocytes 0.5 0.0 - 1.3 10e3/uL 01/25/2025 11:26 AM CDT RM LABORATORY Absolute Eosinophils 0.4 0.0 - 0.7 10e3/uL 01/25/2025 11:26 AM CDT RM LABORATORY Absolute Basophils 0.0 0.0 - 0.2 10e3/uL 01/25/2025 11:26 AM CDT RM LABORATORY Absolute Immature Granulocytes 0.0 <=0.4 10e3/uL 01/25/2025 11:26 AM CDT RM LABORATORY Blood BLOOD SPECIMEN / Unknown Venipuncture / Unknown 01/25/2025 11:24 AM CDT 01/25/2025 11:24 AM CDT us Any Joiner MD LAB - BLOOD ORDERABLES Fin al Result LABORATORY [facility] [address] [facility] (no room number, 1st floor of clinic) [place] [address], [place] * (ABNORMAL) CRP inflammation (01/25/2025 11:24 AM CDT) CRP Inflammation 10.11(H) <5.00 mg/L 01/26/2025 2:34 PM CDT LABORATORY Blood BLOOD SPECIMEN / Unknown Venipuncture / Unknown 01/25/2025 11:24 AM CDT 01/25/2025 11:24 AM CDT Any Joiner MD LAB - BLOOD ORDERABLES Fin al Result LABORATORY [facility] [address] 1st floor, Room 20[address] [place] [address], [place] [phone] * IgE (01/25/2025 11:24 AM CDT) Pathologist [facility] Immunoglobulin E 81 0 - 114 kU/L 01/26/2025 12:02 PM CDT SPECIALTY CORE/PROT/END O Blood BLOOD SPECIMEN / Unknown Venipuncture / Unknown 01/25/2025 11:24 AM CDT 01/25/2025 11:24 AM CDT Any Joiner MD LAB - BLOOD ORDERABLES Fin al Result [facility] SPECIALTY CORE/PROT/ENDO [facility] Specialty Core/Prot/Endo [address] [facility], Room 3-[address] * ANCA IgG by IFA with Reflex to Titer (01/25/2025 11:24 AM CDT) Neutrophil Cytoplasmic Antibody <1:10 <=1:10 01/26/2025 10:32 AM CDT SPECIALTY CORE/PROT/END O Neutrophil Cytoplasmic Antibody Pattern The ANCA IFA is <1:10. No further testing will be performed. 01/26/2025 10:32 AM CDT SPECIALTY CORE/PROT/END O Blood BLOOD SPECIMEN / Unknown Venipuncture / Unknown 01/25/2025 11:24 AM CDT 01/25/2025 11:24 AM CDT us Any Joiner MD LAB - BLOOD ORDERABLES Fin al Result UM SPECIALTY CORE/PROT/ENDO UM Specialty Core/Prot/Endo [address] [facility], Room 3-[address] * (ABNORMAL) Urine Microscopic Exam (01/25/2025 10:42 AM CDT) RBC Urine 0-2 0-2 /HPF /HPF PRATEEK 01/25/2025 10:51 AM CDT LABORATORY WBC Urine 0-5 0-5 /HPF /HPF PRATEEK 01/25/2025 10:51 AM CDT LABORATORY Squamous Epithelials Urine Few(A) None Seen /LPF PRATEEK 01/25/2025 10:51 AM CDT LABORATORY Urine URINE SPECIMEN OBTAINED BY CLEAN CATCH PROCEDURE / Unknown Non-blood Collection / Unknown 01/25/2025 10:42 AM CDT 01/25/2025 10:42 AM CDT us Any Joiner MD LAB - URINE ORDERABLES Fin al Result LABORATORY [facility] [place] [facility] [id number] [place] [address] (no room number, 1st floor of clinic) [place] [address], [place] * (ABNORMAL) UA reflex to Microscopic (01/25/2025 10:42 AM CDT) Color Urine Yellow Colorless, Straw, Light Yellow, Yellow 01/25/2025 10:48 AM CDT LABORATORY Appearance Urine Clear Clear 01/26/20 10:48 AM CDT LABORATORY Glucose Urine Negative Negative mg/dL 01/25/2025 10:48 AM CDT LABORATORY Bilirubin Urine Negative Negative 10:48 AM CDT LABORATORY Ketones Urine Negative Negative mg/dL 01/25/2025 10:48 AM CDT LABORATORY Specific [place] Urine 1.015 1.003 - 1.035 01/25/2025 10:48 AM CDT LABORATORY Blood Urine Trace(A) Negative 01/25/2025 10:48 AM CDT LABORATORY pH Urine 7.0 5.0 - 7.0 01/25/2025 10:48 AM CDT LABORATORY Protein Albumin Urine Negative Negative mg/dL 01/25/2025 10:48 AM CDT LABORATORY Urobilinogen Urine 0.2 0.2, 1.0 E.U./dL 01/25/2025 10:48 AM CDT LABORATORY Nitrite Urine Negative Negative 01/25/2025 10:48 AM CDT LABORATORY Leukocyte Esterase Urine Negative Negative 01/25/2025 10:48 AM CDT LABORATORY Urine URINE SPECIMEN OBTAINED BY CLEAN CATCH PROCEDURE / Unknown Non-blood Collection / Unknown 01/25/2025 10:42 AM CDT 01/25/2025 10:42 AM CDT us Any Joiner MD LAB - URINE ORDERABLES Fin al Result LABORATORY [facility] [place] [facility] [address] [facility] (no room number, 1st floor of clinic) [place] [address] documented in this encounter Visit Diagnoses Diagnosis BPD (bronchopulmonary dysplasia) (H) Chronic respiratory disease arising in the period Flank pain Abdominal pain, unspecified site Idiopathic hypereosinophilic syndrome Eosinophilia documented in this encounter Additional Health Concerns Assessment Noted Time PHQ-9 Depression Total Score: 11 025 11:39 AM CDT documented as of this encounter Care Teams National Stormwater Leader Relationship Specialty Start Date End Date Winston Villatoro OD [facility] [address] [place] [address] PCP - Ophthalmology Ophthalmology 02/11/13 Denise Woodson APRN GROUP PROGRAM MANAGER [address] [place] [id number] PCP - General Family Practice 09/21/20 Denise Woodson APRN GROUP PROGRAM MANAGER [address] [facility] [place] [address] Assigned PCP 07/17/20 Usha Simon APRN GROUP PROGRAM MANAGER [address] [facility] [place] [id number] [place] [address] Nurse Practitioner Neurological Surgery 01/24/24 Dangelo Salinas MD [address] [place] [address] Neurology 01/27/24 Joya Lira RPH [address] [place] [address] Pharmacist Pharmacist 05/25/24 Joya Lira RPH [address] [place], [place] [id number] Assigned MTM Pharmacist 06/08/24 Fabi Coates MD [address] [facility] [address] [place] [address] Genetics, Clinical 06/18/24 Arthur Salas, [facility] [address] [place] [address] Assigned Behavioral Health Provider 08/08/24 Randy Maradiaga DO [address] [place] [address] Assigned Neuroscience Provider 08/08/24 Tete Wang MD [address] [place], [place] [phone] Genetics, Clinical 10/30/24 Dahlia Joyce MD [address] [place], [place] [address] Radiology Neuroradiology 11/17/24 Lisa Zambrano MD [address] [facility] [address] [place] [address] Assigned Heart and Vascular Provider 12/06/24 Tete Wang MD [address] [place], [place] [address] Assigned Pediatric Specialist Provider 01/06/25 documented as of this encounter
--- OUTSIDE RECORDS SUMMARY | 2025-01-25 11:00 | XMS_ITS | Encounter Summary ---
Author Organization Mobile Address [address] [place] [address] Care Team Providers Care Field Sales Engineer Name Role Phone Winston Villatoro OD Unavailable [phone] Denise Woodson APRN ELECTRICAL PROSPECTING OPERATOR Unavailable [phone] Denise Woodson APRN ELECTRICAL PROSPECTING OPERATOR Primary Care Provider Usha Simon APRN ELECTRICAL PROSPECTING OPERATOR Unavailable + [phone] Dangelo Salinas MD Unavailable Joya Lira [facility] Unavailable [phone] Joya Lira [facility] Unavailable [phone] Fabi Coates MD Unavailable [phone] SinyiArthur garcia WIND [employer]UR[employer] SERVICE TECHNICIAN Unavailable [phone] Randy Maradiaga DO Unavailable + Tete Wang MD Unavailable [phone] Dahlia Joyce MD Unavailable [phone] Lisa Zambrano MD Unavailable + [phone] Tete Wang MD Unavailable [phone] Reason for Visit * Reason Comments Physical Encounter Details Date Type Department Care Team (Late st Contact Info) Description 01/25/2025 11:00 AM CDT Office Visit [address] [phone] Denise Woodson, [place] ELECTRICAL PROSPECTING OPERATOR [address] [place], [place] [id number] Generalized anxiety disorder (Primary Dx); BPD (bronchopulmonary dysplasia) (H); Hemiparesis of right dominant side as late effect of cerebrovascular disease, unspecified cerebrovascular disease type (H); MDD (major depressive disorder), recurrent episode, moderate (H); Routine general medical examination at a health care facility Social History Tobacco Use Types Packs/Day Years [...] re latives? 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 Not on file Not on file Not on file Not on file Not on file Not on file Not on file documented as of this encounter Last Filed Vital Signs Vital Sign Reading Time Taken Comments Blood Pressure 125/83 01/25/2025 10:50 AM CDT Pulse 78 01/25/2025 10:50 AM CDT Temperature 36.6 C (97.8 F) 01/25/2025 10:50 AM CDT Respiratory Rate 15 01/25/2025 10:50 AM CDT Oxygen Saturation 97% 01/25/2025 10:50 AM CDT Inhaled Oxygen Concentration - - Weight 99.1 kg (218 lb 8 oz) 01/25/2025 10:50 AM CDT Height 174 cm (5' 8.5) 01/25/2025 10:50 AM CDT Body Mass Index 32.74 01/25/2025 10:50 AM CDT documented in this encounter Patient Instructions * Patient Instructions* Denise Woodson APRN ELECTRICAL PROSPECTING OPERATOR - 01/25/2025 11:00 AM CDT Images from the original note were not included. Patient Education Preventive Care Advice This is general advice given by our system to help you stay healthy. However, your care team may have specific advice just for you. Please talk to your care team about your preventive care needs. Nutrition Eat 5 or more servings of fruits and vegetables each day. Try wheat bread, brown rice and whole grain pasta (instead of white bread, rice, and pasta). Get enough calcium and vitamin D. Check the label on foods and aim for 100% of the CAP AND STUD MACHINE OPERATOR (recommendeddaily allowance). Lifestyle Exercise at least 150 minutes each week (30 minutes a day, 5 days a week). Do muscle strengthening activities 2 days a week. These help control your weight and prevent disease. No smoking. Wear sunscreen to prevent skin cancer. Have a dental exam and cleaning every 6 months. Yearly exams See your health care team every year to talk about: Any changes in your health. Any medicines your care team has prescribed. Preventive care, family planning, and ways to prevent chronic diseases. Shots (vaccines) HPV shots (up to age 26), if you've never had them before. Hepatitis B shots (up to age 59), if you've never had them before. COVID-19 shot: Get this shot when it's due. Flu shot: Get a flu shot every year. Tetanus shot: Get a tetanus shot every 10 years. Pneumococcal, hepatitis A, and RSV shots: Ask your care team if you need these based on your risk. Shingles shot (for age 50 and up) General health tests Diabetes screening: Starting at age 35, Get screened for diabetes at least every 3 years. If you are younger than age 35, ask your care team if you should be screened for diabetes. Cholesterol test: At age 39, start having a cholesterol test every 5 years, or more often if advised. Bone density scan (DEXA): At age 50, ask your care team if you should have this scan for osteoporosis (brittle bones). Hepatitis C: Get tested at least once in your life. STIs (sexually transmitted infections) Before age 24: Ask your care team if you should be screened for STIs. After age 24: Get screened for STIs if you're at risk. You are at risk for STIs (including HIV) if: You are sexually active with more than one person. You don't use condoms every time. You or a partner was diagnosed with a sexually transmitted infection. If you are at risk for HIV, ask about PrEP medicine to prevent HIV. Get tested for HIV at least once in your life, whether you are at risk for HIV or not. Cancer screening tests Cervical cancer screening: If you have a cervix, begin getting regular cervical cancer screening tests starting at age 21. Breast cancer scan (mammogram): If you've ever had breasts, begin having regular mammograms starting at age 40. This is a scan to check for breast cancer. Colon cancer screening: It is important to start screening for colon cancer at age 45. Have a colonoscopy test every 10 years (or more often if you're at risk) Or, ask your provider about stool tests like a FIT test every year or Cologuard test every 3 years. To learn more about your testing options, visit: . For help making a decision, visit: https://bit.ly/dk59649. Prostate cancer screening test: If you have a prostate, ask your care team if a prostate cancer screening test (PSA) at age 55 is right for you. Lung cancer screening: If you are a current or former smoker ages 50 to 80, ask your care team if ongoing lung cancer screenings are right for you. For informational purposes only. Not to replace the advice of your health care provider. Copyright ?? 2022 [employer]. All rights reserved. Clinically reviewed by the [facility]. [employer] 640751 - REV 10/09. Learning About Stress What is stress? Stress is your body's response to a hard situation. Your body can have a physical, emotional, or mental response. Stress is a fact of life for most people, and it affects everyone differently. What causes stress for you may not be stressful for someone else. A lot of things can cause stress. You may feel stress when you go on a job interview, take a test, or run a race. This kind of short-term stress is normal and even useful. It can help you if you needto work hard or react quickly. For example, stress can help you finish an important job on time. Long-term stress is caused by ongoing stressful situations or events. Examples of long-term stress include long-term health problems, ongoing problems at work, or conflicts in your family. Long-term stress can harm your health. How does stress affect your health? When you are stressed, your body responds as though you are in danger. It makes hormones that speedup your heart, make you breathe faster, and give you a burst of energy. This is called the iykgt-ym-pbaxrb stress response. If the stress is over quickly, your body goes back to normal and no harm isdone. But if stress happens too often or lasts too long, it can have bad effects. Long-term stress can make you more likely to get sick, and it can make symptoms of some diseases worse. If you tense up when you are stressed, you may develop neck, shoulder, or low back pain. Stress is linked to high bloodpressure and heart disease. Stress also harms your emotional health. It can make you willoughby, tense, or depressed. Your relationships may suffer, and you may not do well at work or school. What can you do to manage stress? You can try these things to help manage stress: Do something active. Exercise or activity can help reduce stress. Walking is a great way to get started. Even everyday activities such as housecleaning or yard work can help. Try yoga or elisha chi. These techniques combine exercise and meditation. You may need some training at first to learn them. Do something you enjoy. For example, listen to music or go to a movie. Practice your hobby or do volunteer work. Meditate. This can help you relax, because you are not worrying about what happened before or what may happen in the future. Do guided imagery. Imagine yourself in any setting that helps you feel calm. You can use online videos, books, or a teacher to guide you. Do breathing exercises. For example: From a standing position, bend forward from the waist with your knees slightly bent. Let your arms dangle close to the floor. Breathe in slowly and deeply as you return to a standing position. Roll up slowly and lift your head last. Hold your breath for just a few seconds in the standing position. Breathe out slowly and bend forward from the waist. Let your feelings out. Talk, laugh, cry, and express anger when you need to. Talking with supportive friends or family, a counselor, or a rachel leader about your feelings is a healthy way to relieve stress. Avoid discussing your feelings with people who make you feel worse. Write. It may help to write about things that are bothering you. This helps you find out how much stress you feel and what is causing it. When you know this, you can find better ways to cope. What can you do to prevent stress? You might try some of these things to help prevent stress: Manage your time. This helps you find time to do the things you want and need to do. Get enough sleep. Your body recovers from the stresses of the day while you are sleeping. Get support. Your family, friends, and community can make a difference in how you experience stress. Limit your news feed. Avoid or limit time on social media or news that may make you feel stressed. Do something active. Exercise or activity can help reduce stress. Walking is a great way to get started. Where can you learn more? Go to https://www.[employer].net/patiented Enter N032 in the search box to learn more about Learning About Stress. Current as of: July 09, 2024 Content Version: 14.4 ?? Outline App. Care instructions adapted under license by your healthcare professional. If you have questions about a medical condition or this instruction, always ask your healthcare professional. [employer] disclaims any warranty or liability for your use of this information. Learning About Depression Screening What is depression screening? Depression screening is a way to see if you have depression symptoms. It may be done by a doctor orcounselor. It's often part of a routine checkup. That's because your mental health is just as important as your physical health. Depression is a mental health condition that affects how you feel, think, and act. You may: Have less energy. Lose interest in your daily activities. Feel sad and grouchy for a long time. Depression is very common. It affects people of all ages. Many things can lead to depression. Some people become depressed after they have a stroke or find out they have a major illness like cancer or heart disease. The of a loved one or a breakup maylead to depression. It can run in families. Most experts believe that a combination of inherited genes and stressful life events can cause it. What happens during screening? You may be asked to fill out a form about your depression symptoms. You and the doctor will discussyour answers. The doctor may ask you more questions to learn more about how you think, act, and feel. What happens after screening? If you have symptoms of depression, your doctor will talk to you about your options. Doctors usually treat depression with medicines or counseling. Often, combining the two works best.Many people don't get help because they think that they'll get over the depression on their own. But people with depression may not get better unless they get treatment. The cause of depression is not well understood. There may be many factors involved. But if you havedepression, it's not your fault. A serious symptom of depression is thinking about or suicide. If you or someone you care about talks about this or about feeling hopeless, get help right away. It's important to know that depression can be treated. Medicine, counseling, and self-care may help. Where can you learn more? Go to https://www.[employer].net/patiented Enter T185 in the search box to learn more about Learning About Depression Screening. Current as of: April 15, 2024 Content Version: 14.4 ?? [id number] Outline App. Care instructions adapted under license by your healthcare professional. If you have questions about a medical condition or this instruction, always ask your healthcare professional. [employer] disclaims any warranty or liability for your use of this information. documented in this encounter Progress Notes * Denise Woodson APRN CNP - 01/25/2025 11:00 AM CDT Preventive Care Visit [facility] Denise Woodson APRN [facility], Family Practice January 25, 2025 Assessment & Plan Generalized anxiety disorder Interested in restarting low dose citalopram. - citalopram (CELEXA) 10 MG tablet; Take 0.5 tablets (5 mg) by mouth daily. BPD (bronchopulmonary dysplasia) (H) Following with pulmonology. Hemiparesis of right dominant side as late effect of cerebrovascular disease, unspecified cerebrovascular disease type (H) Continue with PT to help with dizziness and balance. MDD (major depressive disorder), recurrent episode, moderate (H) Restarting citalopram. Routine general medical examination at a health care facility Declines pneumonia vaccine today. The longitudinal plan of care for the diagnosis(es)/condition(s) as documented were addressed during this visit. Due to the added complexity in care, I will continue to support Alcon in the subsequent management and with ongoing continuity of care. BMI Estimated body mass index is 32.74 kg/m?? as calculated from the following: Height as of this encounter: 1.74 m (5' 8.5). Weight as of this encounter: 99.1 kg (218 lb 8 oz). Counseling Appropriate preventive services were addressed with this patient via screening, questionnaire, or discussion as appropriate for fall prevention, nutrition, physical activity, Tobacco-use cessation, social engagement, weight loss and cognition. Checklist reviewing preventive services available has been given to the patient. Reviewed patient's diet, addressing concerns and/or questions. She is at risk for psychosocial distress and has been provided with information to reduce risk. The patient's PHQ-9 score is consistent with moderate depression. She was provided with informationregarding depression. Juan M Rondon is a 49 year old, presenting for the following: Physical 01/25/2025 10:44 AM Additional Questions Roomed by MR Accompanied by NA 01/25/2025 10:44 AM Patient Reported Additional Medications Patient reports taking the following new medications NA HPI DECLINES VACCINES Visit with pulmonology. Plan in place for future illnesses causing exacerbation of respiratory symptoms. She is having labs done as well. She also saw neurology. Plan is to see them again in 1 year. Continue keppra. Interested in restarting citalopram. She did trial amitriptyline but it caused constipation so she had to stop. She has decreased her dose of trazodone. Advance Care Planning Discussed advance care planning with patient; however, patient declined at this time. 01/22/2025 General Health How would you rate your overall physical health? (!) POOR Feel stress (tense, anxious, or unable to sleep) To some extent (!) STRESS CONCERN 01/22/2025 Nutrition Three or more servings of calcium each day? Yes Diet: Gluten-free/reduced How many servings of fruit and vegetables per day? (!) 2-3 How many sweetened beverages each day? 0-1 01/22/2025 Exercise Days per week of moderate/strenous exercise 0 days Average minutes spent exercising at this level 0 min (!) EXERCISE CONCERN 01/22/2025 Social Factors Frequency of gathering with friends or relatives Once a week Worry food won't last until get money to buy more No Food not last or not have enough money for food? No Do you have housing? (Housing is defined as stable permanent housing and does not include staying outside in a car, in a tent, in an abandoned building, in an overnight assisted, or couch-surfing.) Yes Are you worried about losing your housing? No Lack of transportation? Yes Unable to get utilities (heat,electricity)? No (!) TRANSPORTATION CONCERN PRESENT 01/22/2025 Dental Dentist two times every year? Yes Today's PHQ-9 Score: 01/25/2025 11:39 AM PHQ-9 SCORE PHQ-9 Total Score 11 01/22/2025 Substance Use Alcohol more than 3/day or more than 7/wk Not Applicable Do you use any other substances recreationally? No Social History Tobacco Use Smoking status: Never Passive exposure: Never Smokeless tobacco: Never Vaping Use Vaping status: Never Used Substance Use Topics Alcohol use: Not Currently Comment: minimal Drug use: No 04/25/2022 LAST [facility]HS-7 RESULTS 1st degree relative breast or ovarian cancer No Any relative bilateral breast cancer No Any male have breast cancer No Any ONE woman have BOTH breast AND ovarian cancer No Any woman with breast cancer before 50yrs No 2 or more relatives with breast AND/OR ovarian cancer No 2 or more relatives with breast AND/OR bowel cancer No Mammogram due in July. 01/22/2025 STI Screening New sexual partner(s) since last STI/HIV test? No History of abnormal Pap smear: Status post hysterectomy with removal of cervix and no history of CIN2 or greater or cervical cancer. Health Maintenance and Surgical History updated. ASCVD Risk Associate Sales The ASCVD Risk score (Diane MARTINEZ, et al., 2019) failed to calculate for the following reasons: Risk score cannot be calculated because patient has a medical history suggesting prior/existing ASCVD Reviewed and updated as needed this visit by Provider Patient Active Problem List Diagnosis Generalized anxiety disorder Rosacea Chronic respiratory disease arising in the period (H) Attention deficit hyperactivity disorder (ADHD), predominantly inattentive type BPD (bronchopulmonary dysplasia) (H) Herniated cervical disc DDD (degenerative disc disease), cervical Lizy-Danlos syndrome ASD (atrial septal defect) Moderate persistent asthma without complication Chronic rhinitis Insomnia, unspecified type Anti-TPO antibodies present Stroke (H) Seizure-like activity (H) History of seizure History of stroke Pain of right upper extremity Fibromyalgia Dural arteriovenous fistula Chest pain Gastroesophageal reflux disease with esophagitis without hemorrhage Hemiparesis of right dominant side as late effect of cerebrovascular disease, unspecified cerebrovascular disease type (H) Chronic obstructive pulmonary disease without exacerbation (H) Tachycardia Right sided numbness Fibromuscular dysplasia Past Surgical History: Procedure Laterality Date C BOTTOM SAW OPERATOR PROCEDURE DATE: vag del. C BOTTOM SAW OPERATOR PROCEDURE DATE: 2000 tubal ligation C BOTTOM SAW OPERATOR PROCEDURE DATE: 1994 D&C CARDIAC SURGERY 06/2006 heart defect repair CHOLECYSTECTOMY 2020 ESOPHAGOSCOPY, GASTROSCOPY, DUODENOSCOPY (EGD), COMBINED N/A 02/08/2021 Procedure: ESOPHAGOGASTRODUODENOSCOPY (EGD); Surgeon: Tuan Miller MD; Location: GI GENITOURINARY SURGERY 2022 GI SURGERY 09/2020 gallbladder removed HC KNEE SCOPE,MED/LAT MENISECTOMY 08/04/2013 LT HEART CATH, CLOSURE ATRIAL SEPTAL DEFECT 06/20/2006 amplatzer septal occluder- serial #[id number] RW BOTTOM SAW OPERATOR (ABSTRACTED) pneumonia several times SOFT TISSUE SURGERY 2011 Lipoma removal SURGICAL PATHOLOGY EXAM 02/2012 excision of lipoma on chest wall ZZC VAGINAL HYSTERECTOMY 01/30/2006 Social History Tobacco Use Smoking status: Never [...] of Blood Disease No family hx of Review of Systems Constitutional, HEENT, cardiovascular, pulmonary, gi and gu systems are negative, except as otherwise noted. Objective Exam BP 125/83 (BP Location: Right arm, Patient Position: Sitting, Cuff Size: Adult Large) Pulse 78 Temp 97.8 ??F (36.6 ??C) (Oral) Resp 15 Ht 1.74 m (5' 8.5) Wt 99.1 kg (218 lb 8 oz) LMP 01/07/2006 SpO2 97% BMI 32.74 kg/m?? Estimated body mass index is 32.74 kg/m?? as calculated from the following: Height as of this encounter: 1.74 m (5' 8.5). Weight as of this encounter: 99.1 kg (218 lb 8 oz). Physical Exam GENERAL: alert and no [...] Description 03/16/2025 8:00 AM CDT Virtual Visit [address] [phone] Bindu Bueno, OD [address] [place] [address] Rubi Johnson, OT [address] [address] 03/26/2025 12:45 PM CDT Therapy Visit [address] [phone] MylesMagaliBindu, OD [address] [place] [address] Rubi Johnson, OT [address] [address] 04/02/2025 9:30 AM CDT Therapy Visit [address] [phone] Randy Maradiaga, DO [address] [place] [address] Delicia George, PT [address] [place] [address] 04/06/2025 11:00 AM CDT Virtual Visit [address] [phone] Myles Bindu, OD [address] [place] [address] Rubi Johnson, OT [address] [address] 04/06/2025 12:30 PM CDT Therapy Visit [address] [phone] Randy Maradiaga, DO [address] [place] [address] Delicia George, PT [address] [place] [address] 04/16/2025 11:00 AM CDT Therapy Visit [address] [phone] Bindu Bueno, OD [address] [place] [address] Rbui Johnson, OT [address] [address] 04/23/2025 12:45 PM CDT Therapy Visit [address] [phone] Bindu Bueno, OD [address] [place] [address] Rubi Johnson, OT [address] [address] 04/23/2025 2:00 PM CDT Therapy Visit [address] [phone] Randy Maradiaga, DO [address] [place] [address] Delicia George, PT [address] [facility] [place] [address] 04/30/2025 10:15 AM CDT Therapy Visit [address] [phone] Randy Maradiaga, DO [address] [place] [id number] Delicia George, PT [address] [facility] [place] [place] [address] 05/04/2025 11:00 AM CDT Virtual Visit [address] [phone] Bindu Bueno, OD [address] [place] [address] Rubi Johnson, OT [address] [address] 05/07/2025 10:15 AM CDT Therapy Visit [address] [phone] Randy Maradiaga, DO [address] [place] [address] Delicia George, PT [address] [facility] [place] [address] 05/14/2025 10:15 AM CDT Therapy Visit [address] [phone] Randy Maradiaga, DO [address] [place] [address] Delicia George, PT [address] [place] [address] 05/14/2025 11:00 AM CDT Therapy Visit [facility] [address] [phone] Bindu Bueno, OD [address] [place] [address] Rubi Johnson, [address] [address] 06/01/2025 11:15 AM CDT Appointment [facility] [address] [place] [phone] Robin Zepeda MD [address] [place] [address] 06/02/2025 2:20 PM CDT Virtual Visit [facility] [address] [phone] Robin Zepeda MD [address] [place] [address] 07/01/2025 12:00 PM CDT Virtual Visit [facility] [address] [phone] Santa Menon, PA-C [address] [place] [phone] 08/03/2025 4:30 PM CLOSER ON Virtual Visit [facility] [place] [address] [place] [phone] Any Joiner MD [address] [facility] [address] [place], [place] [address] documented as of this encounter Visit Diagnoses Diagnosis Generalized anxiety disorder- Primary BPD (bronchopulmonary dysplasia) (H) Chronic respiratory disease arising in the period Hemiparesis of right dominant side as late effect of cerebrovascular disease, unspecified cerebrovascular disease type (H) MDD (major depressive disorder), recurrent episode, moderate (H) Major depressive disorder, recurrent episode, moderate Routine general medical examination at a health care facility documented in this encounter Additional Health Concerns Assessment Noted Time PHQ-9 Depression Total Score: 11 025 11:39 AM CDT documented as of this encounter Care Teams Field Sales Engineer Relationship Specialty Start Date End Date Winston Villatoro OD [facility] [address] [facility] [address] [place] [address] PCP - Ophthalmology Ophthalmology 02/11/13 Denise Woodson APRN ELECTRICAL PROSPECTING OPERATOR [address] [place] [address] PCP - General Family Practice 09/21/20 Denise Woodson APRN ELECTRICAL PROSPECTING OPERATOR [address] [place] [address] Assigned PCP 07/17/20 Usha Simon APRN ELECTRICAL PROSPECTING OPERATOR [address] [facility] [place] [address] Nurse Practitioner Neurological Surgery 01/24/24 Dangelo Salinas MD [address] [place] [address] Neurology 01/27/24 Joya Lira [facility] [address] [place] [address] Pharmacist Pharmacist 05/25/24 Joya Lira [facility] [address] [place] [address] Assigned MTM Pharmacist 06/08/24 Fabi Coates MD [address] [place] [address] [address] [place], [place] 414455 Genetics, Clinical 06/18/24 Arthur Salas [facility] [address] [id number] Assigned Behavioral Health Provider 08/08/24 Randy Maradiaga DO [address] [place], [place] 39[address] Assigned Neuroscience Provider 08/08/24 Tete Wang MD [address] [place], [place] [phone] Genetics, Clinical 10/30/24 Dahlia Joyce MD [address] [place], [place] [address] Radiology Neuroradiology 11/17/24 Lisa Zambrano MD [address] [facility] [address] [place] [address] Assigned Heart and Vascular Provider 12/06/24 Tete Wang MD [address] [place] [address] Assigned Pediatric Specialist Provider 01/06/25 documented as of this encounter
--- OUTSIDE RECORDS SUMMARY | 2025-01-26 13:15 | XMS_ITS | Encounter Summary ---
Author Organization [facility] Address [address] [place] [address] Care Team Providers Care Financial Sales Associate Name Role Phone Winston Villatoro Se OD Unavailable [phone] Denise Woodson APRN COMMUNITY FACILITATOR Unavailable [phone] Denise Woodson APRN COMMUNITY FACILITATOR Primary Care Provider Usha Simon APRN COMMUNITY FACILITATOR Unavailable + [phone] Dangelo Salinas MD Unavailable Joya Lira [facility] Unavailable [phone] Joya Lira [facility] Unavailable [phone] Fabi Coates MD Unavailable [phone] SinyiArthur garcia INSTRUMENTATION AND CONTROLS DESIGNER Unavailable [phone] Randy Maradiaga DO Unavailable + Tete Wang MD Unavailable [phone] Dahlia Joyce MD Unavailable [phone] Lisa Zambrano MD Unavailable [phone]- [phone] Tete Wang MD Unavailable [phone] Reason for Visit * Rehab Therapy Integrated Services (Routine) - Closed Specialty Diagnoses / Procedures Referred By Contac t Referred To Contact Diagnoses Cerebrovascular accident (CVA), unspecified mechanism (H) [address] [address] Phone: tel: Referral ID Status Reason Start Date Expiration Date Visits Re quested Visits Authorized [id number] Closed 09/16/2024 02/02/2025 365 365 Encounter Details Date Type Department Care Team (Late st Contact Info) Description 01/26/2025 1:15 PM CDT Virtual Visit [facility] [address] [place] [phone] Randy Maradiaga, DO [address] [place], [place] [address] Delicia George, PT [address] [place] [address] Cerebrovascular accident (CVA), unspecified mechanism [...] re latives? 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 Progress up to 60 seconds. Repeat 2-3 times per day. Forward step up onto folded towel or blanket for 5 times leading with each foot. Walking and look left for 3 steps then right for 3 steps. No pause in the middle Repeat for a totalof 2 passes down the m[place]ur 2 times per day. Seated rest break with deep breathing to help calm your system down. Walking and look up for 3 steps then down for 3 steps. Repeat for a total of 2 passes down [address] hall2 times per day. Seated rest break with deep breathing to help calm your system down. *You can have a buildup of triggers toward your symptom threshold - take short but frequent rest breaks to help calm your system down and bring you away from the symptom threshold. documented in this encounter Plan of Treatment Upcoming Encounters Date Type Department Care Team (Late st Contact Info) Description 03/16/2025 8:00 AM CDT Virtual Visit M [address] [address] Bindu Bueno, OD [address] [place] [address] Rubi Johnson, OT VALARIE BALBUENA [address] [address] 03/26/2025 12:45 PM CDT Therapy Visit M [address] [phone] Bindu Bueno, OD [address] [place], [place] [address] [facility]i [facility] OT [facility] [address] [place] [address] 04/02/2025 9:30 AM CDT Therapy Visit [facility] [address] [place] [phone] Randy Maradiaga, DO [address] [place] [phone] Delicia George, PT [address] [place], [place] [address] 04/06/2025 11:00 AM CDT Virtual Visit [facility] [address] [place] [phone] Bindu Bueno, OD [address] [place] [address] Rubi Johnson, OT [facility] [address] [place] [address] 04/06/2025 12:30 PM CDT Therapy Visit [facility] [address] [place] [phone] Randy Maradiaga, DO [address] [place] [address] Delicia George, PT [address] [place], [place] [address] 04/16/2025 11:00 AM CDT Therapy Visit [address] [phone] Bindu Bueno, OD [address] [place] [address] Rubi Johnson, OT [address] [address] 04/23/2025 12:45 PM CDT Therapy Visit [address] [phone] Bindu Bueno, OD [address] [place] [address] Rubi Johnson, OT [address] [address] 04/23/2025 2:00 PM CDT Therapy Visit [address] [phone] Randy Maradiaga, DO [address] [place] [address] Delicia George, PT [address] [place] [address] 04/30/2025 10:15 AM CDT Therapy Visit [address] [phone] Randy Maradiaga, DO [address] [place] [address] Delicia George, PT [address] [facility] [place] [place] [address] 05/04/2025 11:00 AM CDT Virtual Visit [address] [phone] Bindu Bueno, OD [address] [place] [address] Rubi Johnson, OT [address] [address] 05/07/2025 10:15 AM CDT Therapy Visit [address] [phone] Randy Maradiaga, DO [address] [place] [address] Delicia George, PT [address] [place] [address] 05/14/2025 10:15 AM CDT Therapy Visit [address] [phone] Randy Maradiaga, DO [address] [place] [address] Delicia George, PT [address] [place] [address] 05/14/2025 11:00 AM CDT Therapy Visit [address] [phone] Bindu Bueno, OD [address] [place] [address] Rubi Johnson, OT [facility] [address] [place] [address] 06/01/2025 11:15 AM CDT Appointment [facility] [address] [place] [address] Robin Zepeda MD [address] [place] [phone] 06/02/2025 2:20 PM CDT Virtual Visit [facility] [address] [phone] Robin Zepdea MD [address] [place] [address] 07/01/2025 12:00 PM CDT Virtual Visit [facility] [address] [phone] Santa Menon, PA-C [address] [place] [address] 08/03/2025 4:30 PM SENIOR DATASTAGE DEVELOPER Virtual Visit [facility] [address] [phone] Any Joiner MD [address] [place] [address] documented as of this encounter Visit Diagnoses Diagnosis Cerebrovascular accident (CVA), unspecified mechanism (H)- Primary documented in this encounter Additional Health Concerns Assessment Noted Time PHQ-9 Depression Total Score: 11 025 11:39 AM CDT documented as of this encounter Care Teams Financial Sales Associate Relationship Specialty Start Date End Date [facility] [address] [place] [address] PCP - Ophthalmology Ophthalmology 02/11/13 Denise Woodson APRN COMMUNITY FACILITATOR [address] [place] [address] PCP - General Family Practice 09/21/20 Denise Woodson APRN COMMUNITY FACILITATOR [address] [place] [address] Assigned PCP 07/17/20 Usha Simon APRN COMMUNITY FACILITATOR [address] [place], [place] [address], [place] [address] Nurse Practitioner Neurological Surgery 01/24/24 Dangelo Salinas MD [address] [place] [address] Neurology 01/27/24 Joya Lira Joleen [address] [place] [address] Pharmacist Pharmacist 05/25/24 Joya Lira RPH [address] [place] [address] Assigned MTM Pharmacist 06/08/24 Fabi Coates MD [address] [place] [address] 75 [place], [place] [address] Genetics, Clinical 06/18/24 Arthur Salas [facility] [address] [address] Assigned Behavioral Health Provider 08/08/24 Randy Maradiaga DO [address] [place] [address] Assigned Neuroscience Provider 08/08/24 Tete Wang MD [address] [place] [address]994 Genetics, Clinical 10/30/24 Dahlia Joyce MD [address] [place] [address] Radiology Neuroradiology 11/17/24 Lisa Zambrano MD [address] [address] Assigned Heart and Vascular Provider 12/06/24 Tete Wang MD [address] [place] [address]204 Assigned Pediatric Specialist Provider 01/06/25 documented as of this encounter
--- OUTSIDE RECORDS SUMMARY | 2025-02-01 09:30 | XMS_ITS | Encounter Summary ---
Author Organization [facility] Address [address] [place] [address] Care Team Providers Care Excelsior Machine Operator Name Role Phone Winston Villatoro Se OD Unavailable [phone] Denise Woodson APRN COMPLIANCE VICE PRESIDENT Unavailable [phone] Denise Woodson APRN COMPLIANCE VICE PRESIDENT Primary Care Provider Usha Simon APRN COMPLIANCE VICE PRESIDENT Unavailable + [phone] Dangelo Salinas MD Unavailable Joya Lira RP Unavailable [phone] Joya Lira [facility] Unavailable [phone] Fabi Coates MD Unavailable [phone] SinyiArthur garcia OPERATIONS VICE PRESIDENT Unavailable [phone] Randy Maradiaga DO Unavailable + Tete Wang MD Unavailable [phone] Dahlia Joyce MD Unavailable [phone] Lisa Zambrano MD Unavailable [phone] Tete Wang MD Unavailable [phone] Reason for Referral * Rehab Therapy Integrated Services (Routine: Next available opening) - Authorized Specialty Diagnoses / Procedures Referred By Contac t Referred To Contact Diagnoses Cerebrovascular accident (CVA), unspecified mechanism (H) [address] [address] Phone: tel: Referral ID Status Reason Start Date Expiration Date V isits Requested Visits Authorized [id number] Authorized 02/03/2025 09/15/2025 365 365 Question Answer Course of Action: Evaluation and Treatment Specialty Services: Low Vision Patient Scheduling Instructions: [facility] will call you to coordinate your care as prescribed by your provider. If you don't hear from a patient portal representative within 2 business days, please call . Additional Information: Saccadic insufficiency post-CVA Comments Please be aware that coverage of these services is subject to the terms and limitations of your health insurance plan. Call member services at your health plan with any benefit or coverage questions. [employer] [facility] will call you to coordinate your care as prescribed by your provider. If you don't hear from a patient portal representative within 2 business days, please call . Reason for Visit * Reason Comments Visual Field Defect Evaluation Angiogram related CVA December 2023. She reports horizontal diplopia after this. She says that this has gone away after doing some PT. She says she can't watch fast movies or ride in fast cars. After she went back to work she noticed dizziness and blurred vision. 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 She says her vision is fuzzy. * Consultation (Routine: Next available opening) - Pending Review Specialty Diagnoses / Procedures Referred By Nila shah Referred To Contact Ophthalmology Diagnoses Cerebrovascular accident (CVA), unspecified mechanism (H) History of CVA (cerebrovascular accident) Santa Menon PA-C [address] [place] [address] Phone: tel: fax: [facility] [address] [place] [address] Phone: tel: fax: Referral ID Status Reason Start Date Expiration Date V isits Requested Visits Authorized [id number] Pending Review 12/31/2024 12/31/2025 1 1 Encounter Details Date Type Department Care Team (Late st Contact Info) Description 02/01/2025 9:30 AM CDT Office Visit [facility] Eye [facility] [address] [facility] [address] [place] [address] Santa Menon, PANilesC [address] [place] [address] Bindu Bueno, OD [address] [place] [address] Saccadic deficiency (Primary Dx); History of CVA (cerebrovascular accident); Abnormal peripheral vision of both eyes Social History Tobacco Use Types Packs/Day Years [...] re latives? 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 HPI: Alcon is a patient of Santa Menon PA-C last seen on 12/31/24. At that time, she reported visualsymptoms. Since then, she reports that immediately after her stroke, she noticed horizontal double vision. This resolved with therapy (PT/OT/ST). Visual symptoms seem to improve and regress. She has tried to return to work with difficulty. She cannot tolerate screen reading, scrolling, or alternating between2 screens. She prefers to drive on side streets; when she is a passenger in the car, she prefers tolook down because she is bothered by movement in her peripheral vision. Review of outside testing: MRI Brain [facility] 11/06/24: Review of outside notes: Visit with Santa Menon PA-C: Ken patient has a history of fibromuscular dysplasia, EDS and left sigmoid dural AVD. She was under going a Cerbral angiogram and suffered angiogram related CVA in December 2023. She CVA in bilateral hemispheres location of frontal, parietal, left pre and post central gyurs and left supra marginalgyrus. She developed right hemiparesis after.. Due to history of CVA and brain injury as well and was referred to TBI duet o lingering symptoms. She today reports continued Headaches that are in the front of her head feels like pressure ( blowing ballon). He also gets burning tingling in scalp. Shedid go to acupuncture yesterday to tory and get help. Every time she tried to go back to work she gets flare of symptoms. She has fatigue but can only do ADL for 15 minutes. She is have significant memory issues as well. She cannot scroll a screen and has trouble focusing and has flushing of her system. She has had to stop working due to her concentration, focus and visual symptoms. She is limitin g driving to local and will only drive if its straight. ..Patient with history of CVA's and brain injury with continued symptoms. Discussed concept of neuro-plasticity and how this will contribute to waxing waning symptoms from a brain injury. Discussed how overstimulation or physical /mental exertion and trigger return of symptoms. Also discussed need for vision testing and vision therapy due to her sensitivity to light and also visual motion symptoms with scrolling. Will refer to [facility] due to limiting driving. Encouraged to keep appointment with PT next week for vestibular symptoms as well. She would benefit from occupational therapy to cover her concentration and cognitive deficits as well as hypersensitivity. Due to on going headaches will trial Elavil as this will help headaches, mood and sleep. Discussed risk and benefit as well as side effects. Today's Testing: Kinetic III4e: Full field, each eye Right eye: 130 degrees horizontally. Left eye: 130 degrees horizontally. Assessment and Plan: Today, Alcon's exam reveals intact, orthophoric ocular alignment and normal, smooth pursuits. She had a difficult time with saccadic eye movements, which is consistent with her inability to tolerate screen reading/scrolling. I do not see an indication for prismatic correction or updated glasses at this time. I will refer her to vision rehabilitation OT for further evaluation/management. For intolerance in busy, visually cluttered environments, I recommended a trial of Cocoons. I am happy to see her back with concerns/changes, but I did not schedule a follow-up today. Complete documentation of historical and exam elements from today's encounter can be found in the full encounter summary report (not reduplicated in this progress note). I personally obtained the chief complaint(s) and history of present illness. I confirmed and edited as necessary the review of systems, past medical/surgical history, family history, social history, and examination findings as documented by others; and I examined the patient myself. I personally reviewed the relevant tests, images, and reports as documented above. I formulated and edited as necessary the assessment and plan and discussed the findings and management plan with the patient and family. Bindu Bueno OD documented in this encounter Plan of Treatment Upcoming Encounters Date Type Department Care Team (Late st Contact Info) Description 03/16/2025 8:00 AM CDT Virtual Visit [address] [phone] Bindu Bueno, OD [address] [place], [place] [address] Rubi Johnson, OT [facility] [address] [place] [address] 03/26/2025 12:45 PM CDT Therapy Visit [facility] [address] [place] [phone] Bindu Bueno, OD [address] [place], [place] [phone] Rubi Johnson, OT [address] [id number] 04/02/2025 9:30 AM CDT Therapy Visit [address] [phone] Randy Maradiaga, DO [address] [place] [address] Delicia George, PT [address] [facility] [place], [place] [address] 04/06/2025 11:00 AM CDT Virtual Visit [address] [phone] Bindu Bueno, OD [address] [place] [address] Rubi Johnson, OT [address] [address] 04/06/2025 12:30 PM CDT Therapy Visit [address] [phone] Randy Maradiaga, DO [address] [place] [address] Delicia George, PT [address] [place] [address] 04/16/2025 11:00 AM CDT Therapy Visit [address] [phone] Bindu Bueno, OD [address] [place], [place] [address] Rubi Johnson, OT [address] [address] 04/23/2025 12:45 PM CDT Therapy Visit [address] [phone] Bindu Bueno, OD [address] [place] [address] Rubi Johnson, OT [address] [address] 04/23/2025 2:00 PM CDT Therapy Visit [address] [phone] Randy Maradiaga, DO [address] [place] [address] Delicia George, PT [address] [facility] [place] [address] 04/30/2025 10:15 AM CDT Therapy Visit [address] [phone] Randy Maradiaga, DO [address] [place] [address] Delicia George, PT [address] [place] [address] 05/04/2025 11:00 AM CDT Virtual Visit [address] [phone] Bindu Bueno, OD [address] [place] [address] Rubi Johnson, OT [address] [address] 05/07/2025 10:15 AM CDT Therapy Visit [address] [phone] Randy Maradiaga, DO [address] [place] [address] Delicia George, PT [address] [place] [address] 05/14/2025 10:15 AM CDT Therapy Visit [address] [place] [phone] Randy Maradiaga, DO [address] [place] [address] Delicia George, PT [address] [facility] [place] [address] 05/14/2025 11:00 AM CDT Therapy Visit [facility] [address] [phone] Bindu Bueno, OD [address] [place] [address] Rubi Johnson, [address] [address] 06/01/2025 11:15 AM CDT Appointment [facility] [address] [facility] [address] [place] [phone] Robin Zepeda MD [address] [place] [id number] 06/02/2025 2:20 PM CDT Virtual Visit [facility] [address] [phone] Robin Zepeda MD [address] [place] [address] 07/01/2025 12:00 PM CDT Virtual Visit [facility] [address] [phone] Santa Menon PANilesC [address] [place] [address] 08/03/2025 4:30 PM AVIATION CONSULTANT Virtual Visit [facility] [address] [phone] Any Joiner MD [address] [facility] [address] [place], [place] [address] Scheduled Referrals Name Type Priority Associated Diagnoses Order Schedule 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 Patient cooperation: Reliable . Good Fixation, Dilated After VF. Right Eye Reliability of the test: Good . Findings: Visual thomas normal . Interpretation: Normal . Plan: Monitor . Interval: Initial . Left Eye Reliability of the test: Good . Findings: Visual thomas normal . Interpretation: Normal . Plan: Monitor . Interval: Initial . Bindu Bueno OD OPHTHALMOLOGY Final Result documented in this encounter Visit Diagnoses Diagnosis Saccadic deficiency- Primary Deficiencies of saccadic eye movements History of CVA (cerebrovascular accident) Transient ischemic attack (TIA), and cerebral infarction without residual deficits Abnormal peripheral vision of both eyes documented in this encounter Additional Health Concerns Assessment Noted Time PHQ-9 Depression Total Score: 11 025 11:39 AM CDT documented as of this encounter Care Teams Excelsior Machine Operator Relationship Specialty Start Date End Date Winston Villatoro, OD [facility] [place] [address] [place] [address] PCP - Ophthalmology Ophthalmology 02/11/13 Denise Woodson APRN COMPLIANCE VICE PRESIDENT [address] [place] [address] PCP - General Family Practice 09/21/20 Denise Woodson APRN COMPLIANCE VICE PRESIDENT [address] [place] [address] Assigned PCP 07/17/20 Usha Simon APRN COMPLIANCE VICE PRESIDENT [address] [facility] [place], [place] [address] Nurse Practitioner Neurological Surgery 01/24/24 Dangelo Salinas MD [address] [place], [place] [id number] Neurology 01/27/24 Joya Lira [facility] [address] [place], [place] [phone] Pharmacist Pharmacist 05/25/24 Joya Lira [facility] [address] [place] [address] Assigned MTM Pharmacist 06/08/24 Fabi Coates MD [address] [place] [address] [address] [place] [address] Genetics, Clinical 06/18/24 Arthur Salas OPERATIONS VICE PRESIDENT [address] [address] Assigned Behavioral Health Provider 08/08/24 Randy Maradiaga DO [address] [place] [address] Assigned Neuroscience Provider 08/08/24 Tete Wang MD [address] [place] [address] Genetics, Clinical 10/30/24 Dahlia Joyce MD [address] [place] [address] Radiology Neuroradiology 11/17/24 Lisa Zambrano MD [address] [facility] [address] [place] [address] Assigned Heart and Vascular Provider 12/06/24 Tete Wang MD [address] [place] [address] Assigned Pediatric Specialist Provider 01/06/25 documented as of this encounter
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
--- OUTSIDE RECORDS SUMMARY | 2025-02-19 12:45 | XMS_ITS | Encounter Summary ---
Author Organization [place] Address [address] [place] [address] Care Team Providers Care Patient Care Coordinator Name Role Phone Winston Villatoro OD Unavailable [phone] Denise Woodson APRN GASOLINE DRAGLINE OPERATOR Unavailable [phone] Denise Woodson APRN GASOLINE DRAGLINE OPERATOR Primary Care Provider Usha Simon APRN GASOLINE DRAGLINE OPERATOR Unavailable + [phone] Dangelo Salinas MD Unavailable Joya Lira [facility] Unavailable [phone] Joya Lira [facility] Unavailable +[phone] Fabi Coates MD Unavailable [phone] SinyigayaArthur COMPUTER SYSTEMS CONSULTANT Unavailable [phone] Randy Maradiaga DO Unavailable + Tete Wang MD Unavailable [phone] Dahlia Joyce MD Unavailable [phone] Lisa Zambrano MD Unavailable + [phone] Tete Wang MD Unavailable +[phone] Any Joiner MD Unavailable [phone] Reason for Visit * Rehab Therapy Integrated Services (Routine: Next available opening) - Authorized Specialty Diagnoses / Procedures Referred By Contac t Referred To Contact Diagnoses Cerebrovascular accident (CVA), unspecified mechanism (H) [facility] [address] [place] [address] Phone: tel: Referral ID Status Reason Start Date Expiration Date V isits Requested Visits Authorized [id number] Authorized 02/03/2025 09/15/2025 365 365 Encounter Details Date Type Department Care Team (Late st Contact Info) Description 02/19/2025 12:45 PM CDT Therapy Visit [facility] 150 [place] [phone] Myles Bindu, OD [address] [facility] [place] [address] Rubi Johnson, OT [facility] [address] [place], [place] [id number] Cerebrovascular accident (CVA), unspecified mechanism (H) (Primary [...] re latives? 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 [employer] Not on file 01/22 Active Member [...] Answer Date Recorded PHQ-2 Score 3 01/25/2025 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 Gender Identity Not on file Sexual Orientation [...] Description 03/16/2025 8:00 AM CDT Virtual Visit [address] [phone] BuenoBindu, OD 909 [place], [place] 973175 Rubi Johnson, OT [address] [address] 03/26/2025 12:45 PM CDT Therapy Visit [address] [phone] MylesBindu, OD 909 [place], [place] 853885 Rubi Johnson, OT [address] 085307 04/02/2025 9:30 AM CDT Therapy Visit [address] [phone] Randy Maradiaga, DO 909 [place], [place] 196365 Delicia George, PT 150 [place], [place] [phone] 04/06/2025 11:00 AM CDT Virtual Visit [address] [phone] MylesBindu, OD 909 [place], [place] 643605 Rubi Johnson, OT [address] [address] 04/06/2025 12:30 PM CDT Therapy Visit [address] [phone] Randy Maradiaga, DO [address] [place] [address] 062155 Delicia George, PT 150 [place] [address] 04/16/2025 11:00 AM CDT Therapy Visit [address] [phone] Magali Buenoissa, OD 909 [place], [place] 254765 Rubi Johnson, OT [address] [address] 04/23/2025 12:45 PM CDT Therapy Visit [address] [phone] Myles Bindu, OD 909 [place], [place] 657525 Rubi Johnson, OT [facility] [address] [address] 04/23/2025 2:00 PM CDT Therapy Visit [address] [phone] Randy Maradiaga, DO [address] [place] [address] Delicia George, PT 150 [facility] [place] [address] 04/30/2025 10:15 AM CDT Therapy Visit [address] [phone] Randy Maradiaga, DO [address] [place] [address] Delicia George, PT 150 [facility] [place] [address] 05/04/2025 11:00 AM CDT Virtual Visit [address] [phone] Bindu Bueno, OD 909 [place], [place] 939625 Rubi Johnson, OT [facility] [address] [address] 05/07/2025 10:15 AM CDT Therapy Visit [address] [place] [address]864[address] Randy Maradiaga, DO 909 [place] [address] Delicia George, PT 150 [place] [address] 05/14/2025 10:15 AM CDT Therapy Visit [address] [phone] Randy Maradiaga, DO [address] [place] [address] Delicia George, PT 150 [facility] [address] 05/14/2025 11:00 AM CDT Therapy Visit [address] [phone] Bindu Bueno, OD 909 [place] [address] Rubi Johnson, [address] [address] 06/01/2025 11:15 AM CDT Appointment [facility] [address] [place] [phone] Robin Zepeda MD [address] [place], [place] [address] [address] 06/02/2025 2:20 PM CDT Virtual Visit [facility] [place] [address] [place] [address] [phone] Robin Zepeda MD [address] [place] [address] [id number] [place], [place] 443525 07/01/2025 12:00 PM CDT Virtual Visit [facility] [address] [phone] [place], PA-C [address] [place] [address] 859365 08/03/2025 4:30 PM DIE SINKER Virtual Visit [facility] [address] [phone] Any Joiner MD [address] [place] [address] 276 [place], [place] [phone] documented as of this encounter Goals Goal Patient Goal Type Associated Problems Recent Progress Patient-Stated? Author [facility]C ECC DEP WELCOME- GOAL TEMPLATE Care Plan MYC ECC DEP WELCOME- PROBLEM TEMPLATE No Background, Analytics MYC ECC DEP WELCOME- GOAL TEMPLATE Care Plan MYC ECC DEP WELCOME- PROBLEM TEMPLATE No Background, Analytics documented as of this encounter Visit Diagnoses Diagnosis Cerebrovascular accident (CVA), unspecified mechanism (H)- Primary Activity of daily living alteration Debility, unspecified Alteration in instrumental activities of daily living (IADL) documented in this encounter Additional Health Concerns Active Problems Noted Date Diagnosed Date MYC ECC DEP WELCOME- PROBLEM TEMPLATE 02/15/2025 MYC ECC DEP WELCOME- PROBLEM TEMPLATE 02/22/2025 Assessment Noted Time PHQ-9 Depression Total Score: 11 025 11:39 AM CDT documented as of this encounter Care Teams Patient Care Coordinator Relationship Specialty Start Date End Date Winston Villatoro, AMELIE [facility] [place] [address] [place] [address] PCP - Ophthalmology Ophthalmology 02/11/13 Denise Woodson APRN GASOLINE DRAGLINE OPERATOR [address] [place] [address] PCP - General Family Practice 09/21/20 Denise Woodson APRN GASOLINE DRAGLINE OPERATOR [address] [place] [address] Assigned PCP 07/17/20 Usha Simon APRN GASOLINE DRAGLINE OPERATOR 909 [facility] [id number] [place], [place] 389675 Nurse Practitioner Neurological Surgery 01/24/24 Dangelo Salinas MD [address] [place], [place] [phone] Neurology 01/27/24 Joya Lira [facility] [address] [place], [place] [phone] Pharmacist Pharmacist 05/25/24 Joya Lira [facility] [address] [place], [place] [phone] Assigned MTM Pharmacist 06/08/24 Fabi Coates MD [address] [place] [address] 75 [place] [address] Genetics, Clinical 06/18/24 Arthur Salas COMPUTER SYSTEMS CONSULTANT [address] [address] Assigned Behavioral Health Provider 08/08/24 Randy Maradiaga DO [address] [place] [address] Assigned Neuroscience Provider 08/08/24 Tete Wang MD [address] [place] [address] 688344 Genetics, Clinical 10/30/24 Dahlia Joyce MD [address] [place] [address] 330575 Radiology Neuroradiology 11/17/24 [place] [address] [place] [address] 627575 Assigned Heart and Vascular Provider 12/06/24 Tete Wang MD [address] [place] [address] 486094 Assigned Pediatric Specialist Provider 01/06/25 Any Joiner MD [address] [place] [address] [phone] Assigned Pulmonology Provider 02/05/25 documented as of this encounter
--- OUTSIDE RECORDS SUMMARY | 2025-02-26 10:00 | XMS_ITS | Encounter Summary ---
Author Organization [facility] Address [address] [place] [address] Care Team Providers Care Restaurant Delivery Driver Name Role Phone Winston Villatoro OD Unavailable [phone] Denise Woodson APRN MELT HOUSE CENTRIFUGAL OPERATOR Unavailable [phone] Denise Woodson APRN MELT HOUSE CENTRIFUGAL OPERATOR Primary Care Provider Usha Simon APRN MELT HOUSE CENTRIFUGAL OPERATOR Unavailable + [phone] Dangelo Salinas MD Unavailable Joya Lira [facility] Unavailable [phone] Joya Lira [facility] Unavailable [phone] Fabi Coates MD Unavailable [phone] SinyigayaArthur FUNERAL ARRANGEMENT DIRECTOR Unavailable [phone] Randy Maradiaga DO Unavailable + Tete Wang MD Unavailable [phone] Dahlia Joyce MD Unavailable [phone] Lisa Zambrano MD Unavailable + [phone] Tete Wang MD Unavailable [phone] Any Joiner MD Unavailable [phone] Reason for Visit * Rehab Therapy Integrated Services (Routine: Next available opening) - Authorized Specialty Diagnoses / Procedures Referred By Contac t Referred To Contact Diagnoses Cerebrovascular accident (CVA), unspecified mechanism (H) [facility] [address] [place] [address] Phone: tel: Referral ID Status Reason Start Date Expiration Date V isits Requested Visits Authorized [id number] Authorized 02/03/2025 09/15/2025 365 365 Encounter Details Date Type Department Care Team (Late st Contact Info) Description 02/26/2025 10:00 AM CDT Virtual Visit [facility] 150 [place] [phone] Myles Bindu, OD 909 [facility] [place] [address] Rubi Johnson, OT [facility] 150 [place], [place] 218047 Cerebrovascular accident (CVA), unspecified mechanism (H) (Primary [...] re latives? 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 file Not on file Not on file Not on file Not on file Not on file Not on file documented as of this encounter Plan of Treatment Upcoming Encounters Date Type Department Care Team (Late st Contact Info) Description 03/16/2025 8:00 AM CDT Virtual Visit [address] [phone] BuenoBindu, OD 909 [place], [place] 350365 Rubi Johnson, OT [address] 255437 03/26/2025 12:45 PM CDT Therapy Visit [address] [phone] MylesBindu, OD 909 [place], [place] 765985 Rubi Johnson, OT [address] 326[address] 04/02/2025 9:30 AM CDT Therapy Visit [address] [phone] Randy Maradiaga, DO 909 [place], [place] 349395 Delicia George, PT 150 [place], [place] [phone] 04/06/2025 11:00 AM CDT Virtual Visit [address] [phone] MylesBindu, OD 909 [place], [place] 806575 Rubi Johnson, OT [address] [address] 04/06/2025 12:30 PM CDT Therapy Visit [address] [phone] Randy [place]adiaga, DO [address] [place] [address] 742155 Delicia George, PT 150 [place] [address] 04/16/2025 11:00 AM CDT Therapy Visit [address] [phone] Magali Buenoissa, OD 909 [place], [place] 833585 Rubi Johnson, OT [address] 804357 04/23/2025 12:45 PM CDT Therapy Visit [address] [phone] Myles Bindu, OD 909 [place], [place] 699325 Rubi Johnson, OT [facility] [address] [address] 04/23/2025 2:00 PM CDT Therapy Visit [address] [phone] Randy Maradiaga, DO [address] [place] [address] Delicia George, PT 150 [facility] [place] [address] 04/30/2025 10:15 AM CDT Therapy Visit [address] [phone] Randy Maradiaga, DO [address] [place] [address] Delicia George, PT 150 [facility] [place] [address] 05/04/2025 11:00 AM CDT Virtual Visit [address] [phone] Bindu Bueno, OD 909 [place], [place] 259335 Rubi Johnson, OT [facility] [address] [address] 05/07/2025 10:15 AM CDT Therapy Visit [address] [place] [phone] Randy Maradiaga, DO 909 [place] [address] Delicia George, PT 150 [place] [address] 05/14/2025 10:15 AM CDT Therapy Visit [address] [phone] Randy Maradiaga, DO [address] [place] [address] Delicia George, PT 150 [facility] [place] [address] 05/14/2025 11:00 AM CDT Therapy Visit [address] [phone] iBndu Bueno, OD 909 [place] [address] Rubi Johnson, [address] [address] 06/01/2025 11:15 AM CDT Appointment [facility] Imaging [address] [place] [phone] Robin Zepeda MD [address] [place], [place] [address] [address] 06/02/2025 2:20 PM CDT Virtual Visit [facility] [place] [address] [place] [address] [phone] Robin Zepeda MD [address] [place] [address] [id number] [place], [place] 195855 07/01/2025 12:00 PM CDT Virtual Visit [facility] [address] [phone] [place], PA-C [address] [place] [address] 522945 08/03/2025 4:30 PM CHAIN SALES REPRESENTATIVE Virtual Visit [facility] [address] [phone] Any Joiner MD [address] [place] [address] 276 [place], [place] [phone] documented as of this encounter Goals Goal [...] documented as of this encounter Care Teams Restaurant Delivery Driver Relationship Specialty Start Date End Date Winston Villatoro, AMELIE [facility] [place] [address] [place] [address] PCP - Ophthalmology Ophthalmology 02/11/13 Denise Woodson APRN MELT HOUSE CENTRIFUGAL OPERATOR [address] [place] [address] PCP - General Family Practice 09/21/20 Denise Woodson APRN MELT HOUSE CENTRIFUGAL OPERATOR [address] [place] [address] Assigned PCP 07/17/20 Usha Simon APRN MELT HOUSE CENTRIFUGAL OPERATOR 909 [facility] [id number] [place], [place] 155735 Nurse Practitioner Neurological Surgery 01/24/24 Dangelo Salinas MD [address] [place], [place] [phone] Neurology 01/27/24 Joya Lira [facility] [address] [place], [place] [phone] Pharmacist Pharmacist 05/25/24 Joya Lira [facility] [address] [place], [place] [phone] Assigned MTM Pharmacist 06/08/24 Fabi Coates MD [address] [place] [address] 75 [place] [address] Genetics, Clinical 06/18/24 Arthur Salas FUNERAL ARRANGEMENT DIRECTOR [address] [address] Assigned Behavioral Health Provider 08/08/24 Randy Maradiaga DO [address] [place] [address] Assigned Neuroscience Provider 08/08/24 Tete Wang MD [address] [place] [address] 244484 Genetics, Clinical 10/30/24 Dahlia Joyce MD [address] [place] [address] 158175 Radiology Neuroradiology 11/17/24 [place] [address] [place] [address] 777255 Assigned Heart and Vascular Provider 12/06/24 Tete Wang MD [address] [place] [address] 415784 Assigned Pediatric Specialist Provider 01/06/25 Any Joiner MD [address] [place] [address] [id number] Assigned Pulmonology Provider 02/05/25 documented as of this encounter
--- OUTSIDE RECORDS SUMMARY | 2025-03-04 12:00 | XMS_ITS | Encounter Summary ---
Author Organization [facility] Address [address] [place] [address] Care Team Providers Care Manager Inventory Name Role Phone Winston Villatoro OD Unavailable [phone] Denise Woodson APRN REHANGER Unavailable [phone] Denise Woodson APRN REHANGER Primary Care Provider Usha Simon APRN REHANGER Unavailable + [phone] Dangelo Salinas MD Unavailable Joya Lira [facility] Unavailable [phone] Joya Lira [facility] Unavailable [phone] Fabi Coates MD Unavailable [phone] SinyigaArthur villafana LEAFLET OR NEWSPAPER DELIVERER Unavailable [phone] Randy Maradiaga DO Unavailable + Tete Wang MD Unavailable [phone] Dahlia Joyce MD Unavailable [phone] Lisa Zambrano MD Unavailable + [phone] Tete Wang MD Unavailable [phone] Any Joiner MD Unavailable [phone] Reason for Visit * Reason Comments RECHECK Encounter Details Date Type Department Care Team (Latest Contact Info) Description 03/04/2025 12:00 PM CDT Virtual Visit [facility] [address] 3rd [place] [address] Santa Menon PA-C [address] [place] [address] Cerebrovascular accident (CVA), unspecified mechanism (H) (Primary Dx); History of CVA (cerebrovascular accident); Dizziness Social History Tobacco Use Types Packs/Day Years [...] re latives? 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 [employer] Not on file 01/22 Active Member [...] Answer Date Recorded PHQ-2 Score 3 01/25/2025 [facility] [place] [facility] - Occupational [...] in an overnight retirement, or couch-surfing.) Yes 01/22/2025 Are you worried [...] on file Legal Sex Female 4:05 AM [employer] Gender Identity Not on file Sexual Orientation [...] - - Weight 97.5 kg (215 lb) 03/04/2025 11:50 AM CDT Height 174 cm (5' 8.5) 03/04/2025 11:50 AM CDT Body Mass Index 32.22 03/04/2025 11:50 AM CDT documented in this encounter Patient Instructions * Patient Instructions* Santa Menon PA-C - 03/04/2025 12:00 PM CDT Re-establish with stroke neurology- Continue therapies Start Meclizine if needed for dizziness * Attachments The following attachments cannot be sent through Care Everywhere. * Meclizine (Chinese) documented in this encounter Progress Notes * Santa Menon PA-C - 03/04/2025 12:00 PM CDT Images from the original note were not included. Video-Visit Details Video visit Start time:11:56 AM Type of service: Video Visit Video End Time:12:19 PM Originating Location (pt. Location): Home Distant Location (provider location): Off- Site Platform used for Video Visit: [employer] [facility] Note Patient Name: Alcon Zamora : 1975 Medical Record: [id number] History of Present Illness: Initial 12/31/24 Alcon Zamora is a 49 year old female who presents as a new Concussion/TBI Consult. Glennaifl patienthas a history of fibromuscular dysplasia, EDS and left sigmoid dural AVD. She was under going a Cerbral angiogram and suffered angiogram related CVA in December 2023. She CVA in bilateral hemispheres location of frontal, parietal, left pre and post central gyurs and left supra marginal giyrus. She developed right hemiparesis after.. Due to history of CVA and brain injury as well and was referred to TBI duet o lingering symptoms. She today reports continued Headaches that are in the front of her head feels like pressure ( blowing ballon). He also gets burning tingling in scalp. She did go to acupuncture yesterday to tory and get help. Every time she tried to go back to work she gets flare of symptoms. She has fatigue but can only do ADL for 15 minutes. She is have significant memory issues aswell. She cannot scroll a screen and has trouble focusing and has flushing of her system. She has had to stop working due to her concentration, focus and visual symptoms. She is limiting driving to local and will only drive if its straight. Today 03/04/25 Patient returns for a follow up. Patient notices that when she has overstimulation due to social interaction she has flare of symptoms. She is working with OT for her vision therapy. She is still having vision issues as well. She has applied for diability. She still has a lot of dizziness and balanc e and is working with PT. She has trouble with visual processing information and auditory. Still with some word finding issues as well. She is concerned as when her symptoms flare the MRI note findings that are new from previous ones. Concerned she is still having strokes. She is applying for disability as she cannot work due to her vision disturbance. Current Symptoms: 02/12/2025 12:00 PM 02/26/2025 10:00 AM 03/02/2025 2:30 PM CONCUSSION SYMPTOMS ASSESSMENT Headache or Pressure In Head 3 - moderate 1 - mild 1 - mild Upset Stomach or Throwing Up 0 - none 0 - none 0 - none Problems with Balance 4 - moderate to severe 3 - moderate 3 - moderate Feeling Dizzy 3 - moderate 3 - moderate 3 - moderate Sensitivity to Light 5 - severe 1 - mild 5 - severe Sensitivity to Noise 6 - excruciating 1 - mild 5 - severe Mood Changes 5 - severe 1 - mild 3 - moderate Feeling sluggish, hazy, or foggy 6 - excruciating 1 - mild 4 - moderate to severe Trouble Concentrating, Lack of Focus 6 - excruciating 1 - mild 4 - moderate to severe Motion Sickness 3 - moderate 0 - none 0 - none Vision Changes 6 - excruciating 5 - severe 6 - excruciating Memory Problems 5 - severe 2 - mild to moderate 5 - severe Feeling Confused 5 - severe 2 - mild to moderate 4 - moderate to severe Neck Pain 4 - moderate to severe 2 - mild to moderate 4 - moderate to severe Trouble Sleeping 4 - moderate to severe 4 - moderate to severe 6 - excruciating Total Number of Symptoms 14 13 13 Symptom Severity Score 65 27 53 Patient-reported Past Medical and Surgical History: Past Medical History: Diagnosis Date Acute [...] periprocedural bilateral strokes,and fibromuscular dysplasia Uncomplicated asthma Past Surgical History: Procedure Laterality Date C GAS APPLIANCE REPAIRER PROCEDURE DATE: vag del. C GAS APPLIANCE REPAIRER PROCEDURE DATE: 2000 tubal ligation C GAS APPLIANCE REPAIRER PROCEDURE DATE: 1994 D&C CARDIAC SURGERY 06/2006 heart defect repair CHOLECYSTECTOMY 2020 ESOPHAGOSCOPY, GASTROSCOPY, DUODENOSCOPY (EGD), COMBINED N/A 02/08/2021 Procedure: ESOPHAGOGASTRODUODENOSCOPY (EGD); Surgeon: Tuan Miller MD; Location: GI GENITOURINARY SURGERY 2022 GI SURGERY 09/2020 gallbladder removed HC KNEE SCOPE,MED/LAT MENISECTOMY 08/04/2013 LT HEART CATH, CLOSURE ATRIAL SEPTAL DEFECT 06/20/2006 amplatzer septal occluder- serial #[id number] RW GAS APPLIANCE REPAIRER (ABSTRACTED) pneumonia several times SOFT TISSUE SURGERY 2010 Lipoma removal SURGICAL PATHOLOGY EXAM 02/2012 excision of lipoma on chest wall ZZC VAGINAL HYSTERECTOMY 01/30/2006 Social History/ Functional History No change in social or functional history Family History: Family History Problem Relation Age [...] of Blood Disease No family hx of Medications: Current Outpatient Medications Medication Sig Dispense Refill [...] wheezing 1 Inhaler 3 BREO ELLIPTA 200-25 MCG/ACT inhaler INHALE 1 PUFF INTO THE LUNGS DAILY. 180 each 0 cetirizine (ZYRTEC) 10 MG tablet Take 10 mg by mouth at bedtime. citalopram (CELEXA) 10 MG tablet Take 0.5 tablets (5 mg) by mouth daily. 90 tablet 0 levETIRAcetam (KEPPRA) 750 MG tablet Take 1/2 [...] Take 1 tablet by mouth at bedtime. psyllium (METAMUCIL) 28.3 % packet Take 1 packet by mouth daily traZODone (DESYREL) 100 MG tablet Take 100 mg by mouth at bedtime. (Patient taking differently: Take 50 mg by mouth at bedtime. 50 mg) Allergies: Allergies Allergen Reactions Codeine GI Disturbance Other Reaction(s): epigastric pain Acetaminophen-Codeine Nausea and Vomiting and Other (See Comments) Iodinated Contrast Media Headache, Nausea and Other (See Comments) Mold Dizziness and GI Disturbance Molds & Smuts Dizziness and Nausea Morphine GI Disturbance Pollen Extract Other (See Comments) and Unknown Bupropion GI Disturbance and Other (See Comments) Diarrhea and stomach ache Doxycycline Rash Erythromycin GI Disturbance ROS: A focused ROS is negative other than the symptoms noted above in the HPI. Physical Examiniation: VITAL SIGNS: Ht 1.74 m (5' 8.5) Wt 97.5 kg (215 lb) LMP 01/07/2006 BMI 32.22 kg/m?? BMI: Estimated body mass index is 32.22 kg/m?? as calculated from the following: Height as of this encounter: 1.74 m (5' 8.5). Weight as of this encounter: 97.5 kg (215 lb). Physical Exam GENERAL: alert and no distress EYES: Eyes grossly normal to inspection. No discharge or erythema, or obvious scleral/conjunctival abnormalities. EOMI/ PERRL NECK: No asymmetry, visible masses or scars SKIN: Visible skin clear. No significant rash, abnormal pigmentation or lesions. NEURO: Cranial nerves grossly intact. Mentation and speech appropriate for age. moving all extremities symetrically PSYCH: Mentation appears normal, affect normal/bright, judgement and insight intact, normal speech and appearance well-groomed. Laboratory/Imaging: Labs: No visits with results within 1 Month(s) from this visit. Latest known visit with results is: Lab on 01/25/2025 Component Date Value Ref Range Status Color Urine 01/25/2025 Yellow Colorless, Straw, Light Yellow, Yellow Final Appearance Urine 01/25/2025 Clear Clear Final Glucose Urine 01/25/2025 Negative Negative mg/dL Final Bilirubin Urine 01/25/2025 Negative Negative Final Ketones Urine 01/25/2025 Negative Negative mg/dL Final Specific Eldon Urine 01/25/2025 1.015 1.003 - 1.035 Final Blood Urine 01/25/2025 Trace (A) Negative Final pH Urine 01/25/2025 7.0 5.0 - 7.0 Final Protein Albumin Urine 01/25/2025 Negative Negative mg/dL Final Urobilinogen Urine 01/25/2025 0.2 0.2, 1.0 E.U./dL Final Nitrite Urine 01/25/2025 Negative Negative Final Leukocyte Esterase Urine 01/25/2025 Negative Negative Final RBC Urine 01/25/2025 0-2 0-2 /HPF /HPF Final WBC Urine 01/25/2025 0-5 0-5 /HPF /HPF Final Squamous Epithelials Urine 01/25/2025 Few (A) None Seen /LPF Final Neutrophil Cytoplasmic Antibody 01/25/2025 <1:10 <=1:10 Final Neutrophil Cytoplasmic Antibody Pa* 01/25/2025 The ANCA IFA is <1:10. No further testing will beperformed. Final Immunoglobulin E 01/25/2025 81 0 - 114 kU/L Final CRP Inflammation 01/25/2025 10.11 (H) <5.00 mg/L Final WBC Count 01/25/2025 6.6 4.0 - 11.0 10e3/uL Final RBC Count 01/25/2025 4.39 3.80 - 5.20 10e6/uL Final Hemoglobin 01/25/2025 13.5 11.7 - 15.7 g/dL Final Hematocrit 01/25/2025 40.5 35.0 - 47.0 % Final MCV 01/25/2025 92 78 - 100 fL Final MCH 01/25/2025 30.8 26.5 - 33.0 pg Final MCHC 01/25/2025 33.3 31.5 - 36.5 g/dL Final RDW 01/25/2025 12.0 10.0 - 15.0 % Final Platelet Count 01/25/2025 181 150 - 450 10e3/uL Final % Neutrophils 01/25/2025 58 % Final % Lymphocytes 01/25/2025 29 % Final % Monocytes 01/25/2025 8 % Final % Eosinophils 01/25/2025 5 % Final % Basophils 01/25/2025 0 % Final % Immature Granulocytes 01/25/2025 0 % Final Absolute Neutrophils 01/25/2025 3.8 1.6 - 8.3 10e3/uL Final Absolute Lymphocytes 01/25/2025 1.9 0.8 - 5.3 10e3/uL Final Absolute Monocytes 01/25/2025 0.5 0.0 - 1.3 10e3/uL Final Absolute Eosinophils 01/25/2025 0.4 0.0 - 0.7 10e3/uL Final Absolute Basophils 01/25/2025 0.0 0.0 - 0.2 10e3/uL Final Absolute Immature Granulocytes 01/25/2025 0.0 <=0.4 10e3/uL Final Imaging: MRI brain wo [facility] 01/19/24 MRI Brain/ MRA Head MRA neck w/wo contrast [facility] 11/06/24 Assessment/Plan: Assessment: 1. Cerebrovascular accident (CVA), unspecified mechanism (H) (Primary) - meclizine (ANTIVERT) 12.5 MG tablet; Take 1 tablet (12.5 mg) by mouth 3 times daily as needed fordizziness. Dispense: 30 tablet; Refill: 1 2. History of CVA (cerebrovascular accident) - meclizine (ANTIVERT) 12.5 MG tablet; Take 1 tablet (12.5 mg) by mouth 3 times daily as needed fordizziness. Dispense: 30 tablet; Refill: 1 3. Dizziness - meclizine (ANTIVERT) 12.5 MG tablet; Take 1 tablet (12.5 mg) by mouth 3 times daily as needed fordizziness. Dispense: 30 tablet; Refill: 1 Patient with history of CVA's and brain injury with continued symptoms. Discussed concept of neuro-plasticity and how this will contribute to waxing waning symptoms from a brain injury. Discussed howoverstimulation or physical /mental exertion and trigger return of symptoms. Also discussed continuing vision therapy due to her sensitivity to light and also visual motion symptoms with scrolling. Encouraged to continue with PT next week for vestibular symptoms as well. Audiology exam was constantwith central vestibular system involvement. Of note MRI in november 2024 did show chronic lacunar infarct which was not present on MRI in november. Will reach out to stroke neurology and see if patient canget re-established. Discussed starting meclizine to see if this will lessen her vertigo/dizziness. Plan: Patient education: In depth discussion and education was provided about the assessment and implications of each of the below recommendations for management. Patient indicated readiness to learn, all questions were answered and understanding of material presented was confirmed. Work-up: sufficient work up Therapy/equipment/braces: Continue therapies Medications: meclizine (ANTIVERT) 12.5 MG tablet; Take 1 tablet (12.5 mg) by mouth 3 times daily as needed for dizziness. Dispense: 30 tablet; Refill: 1 Interventions: none Referral / follow up with other providers: Will have patient re-establish with [facility] outpatient [facility]. Follow up: 4 months Santa Menon PA-C Physical Medicine & Rehabilitation I spent 35 minutes on the date of the encounter with this patient consisting of activities during, and after the encounter including time spent: Preparing to see the patient including review of the chart, tests, and/or outside records. Reviewing and verifying information regarding the chief complaint and history already recorded by ancillary staff and/or the patient. Obtaining history and performing medically appropriate evaluation. Counseling the patient regarding the diagnosis, additional diagnostic considerations, possible diagnostic testing, and any potential options for therapy, including conservative/lifestyle measures andpharmacotherapy including risks/benefits, side effects, and adverse effects. I also counseled the patient on how to contact me with any questions or concerns, new or worsening symptoms. Ordering medications, tests, and/or procedures, and documenting in the chart. I have attempted to proof read for major spelling errors and apologize for any minor errors I may have missed. This note was dictated using voice recognition software. Any grammatical or context distortions areunintentional and inherent to the software. documented in this encounter Nursing Notes * Airam Todd - 03/04/2025 12:00 PM CDT Current patient location: [address] [place] [address] Is the patient currently in the state of [place]? YES Visit mode: VIDEO If the visit is dropped, the patient can be reconnected by:VIDEO VISIT: Text to cell phone: Telephone Information: Will anyone else be joining the visit? NO (If patient encounters technical issues they should call [phone] Are changes needed to the allergy or medication list? Pt stated no changes to allergies and Pt stated no med changes Are refills needed on medications prescribed by this physician? NO Rooming Documentation: Questionnaire(s) completed Reason for visit: RECHECK Airam Todd F documented in this encounter Plan of Treatment Upcoming Encounters Date Type Department Care Team (Late st Contact Info) Description 03/16/2025 8:00 AM CDT Virtual Visit [facility] [address] [place] [phone] Bindu Bueno, OD [address] [place], [place] [address] Rubi Johnson, OT [address] [address] 03/26/2025 12:45 PM CDT Therapy Visit [address] [phone] Bindu Bueno, OD [address] [place] [address] Rubi Johnson, OT [address] [address] 04/02/2025 9:30 AM CDT Therapy Visit [address] [phone] Randy Maradiaga, DO [address] [place] [address] Delicia George, PT [address] [place], [place] [phone] 04/06/2025 11:00 AM CDT Virtual Visit [address] [phone] Bindu Bueno, OD [address] [place] [address] Rubi Johnson, OT [address] [address] 04/06/2025 12:30 PM CDT Therapy Visit [address] [phone] Randy Maradiaga, DO [address] [place] [address] Delicia George, PT [address] [place] [address] 04/16/2025 11:00 AM CDT Therapy Visit [address] [phone] Bindu Bueno, OD [address] [place] [address] Rubi Johnson, OT [address] [address] 04/23/2025 12:45 PM CDT Therapy Visit [address] [phone] Bindu Bueno, OD [address] [place] [address] Rubi Johnson, OT [address] [address] 04/23/2025 2:00 PM CDT Therapy Visit [address] [phone] Randy Maradiaga, DO [address] [place] [address] Delicia George, PT [address] [place] [address] 04/30/2025 10:15 AM CDT Therapy Visit [address] [phone] Randy Maradiaga, DO [address] [place] [address] Delicia George, PT [address] [place] [address] 05/04/2025 11:00 AM CDT Virtual Visit [address] [phone] Myles Bindu, OD [address] [place] [address] Rubi Johnson, OT [address] [address] 05/07/2025 10:15 AM CDT Therapy Visit [address] [phone] Randy Maradiaga, DO [address] [place] [address] Delicia George, PT [address] [place] [address] 05/14/2025 10:15 AM CDT Therapy Visit [address] [phone] Randy Maradiaga DO [address] [place] [address] Delicia George, PT [address] [place] [address] 05/14/2025 11:00 AM CDT Therapy Visit [address] [phone] Bindu Bueno, OD [address] [place] [address] Rubi Johnson, [address] [address] 06/01/2025 11:15 AM CDT Appointment [facility] [address] [place] [phone] Robin Zepeda MD [address] [place] [address] 06/02/2025 2:20 PM CDT Virtual Visit [facility] [address] 3rd [place] [phone] Robin eZpeda MD [address] [place] [address] 07/01/2025 12:00 PM CDT Virtual Visit [facility] [address]rd [place] [phone] Santa Menon, PANilesC [address] [place] [address] 08/03/2025 4:30 PM [employer] Virtual Visit [facility] [address] [phone] Any Joiner MD [address] [facility] [address] [place] [address] documented as of this encounter Goals Goal [...] Cerebrovascular accident (CVA), unspecified mechanism (H)- Primary History of CVA (cerebrovascular accident) Transient ischemic attack (TIA), and cerebral infarction without residual deficits Dizziness Dizziness and giddiness documented in this encounter Additional Health Concerns Active Problems Noted Date Diagnosed Date MYC ECC DEP WELCOME- PROBLEM TEMPLATE 02/15/2025 MYC ECC DEP WELCOME- PROBLEM TEMPLATE 02/22/2025 MYC ECC DEP WELCOME- PROBLEM TEMPLATE 03/01/2025 Assessment Noted Time PHQ-9 Depression Total Score: 11 025 11:39 AM CDT documented as of this encounter Care Teams Manager Inventory Relationship Specialty Start Date End Date Winston Villatoro OD [facility] [place] [address] [facility] [address] [place] [address] PCP - Ophthalmology Ophthalmology 02/11/13 Denise Woodson APRN REHANGER [address] [place] [address] PCP - General Family Practice 09/21/20 Denise Woodson APRN REHANGER [address] [place] [address] Assigned PCP 07/17/20 Usha Simon APRN REHANGER [address] [facility] [id number] [place] [address] Nurse Practitioner Neurological Surgery 01/24/24 Dangelo Salinas MD [address] [place] [address] [place] [address] Neurology 01/27/24 Joya Lira [facility] [address] [address] Pharmacist Pharmacist 05/25/24 Joya Lira [facility] [address] [place] [address] Assigned MTM Pharmacist 06/08/24 Fabi Coates MD [address] [place] [address] [address] [place] [address] Genetics, Clinical 06/18/24 Arthur Salas, [employer] NEWSP[employer]ER DELIVERER [address] [place] [address] [id number] Assigned Behavioral Health Provider 08/08/24 Randy Maradiaga DO [address] [place] [address] Assigned Neuroscience Provider 08/08/24 Tete Wang MD [facility] [place] [address] Genetics, Clinical 10/30/24 Dahlia Joyce MD [address] [place] [address] Radiology Neuroradiology 11/17/24 Lisa Zambrano MD [address] [facility] [address] [place], [place] [phone] Assigned Heart and Vascular Provider 12/06/24 Tete Wang MD [address] [place] [address] [phone] Assigned Pediatric Specialist Provider 01/06/25 Any Joiner MD [address] [place] [address] Assigned Pulmonology Provider 02/05/25 documented as of this encounter
[2025-03-09] VITALS (15 sets, daily range): BP systolic 140–156; BP diastolic 78–90; PULSE 68–101; RESP 8–37; TEMP 36.1; O2SAT 93–98; BMI 32.7
--- NOTE | 2025-03-09 11:21 | CRLHL7_ITS ---
For Patients: As a result of the Century Cures Act, medical imaging exams and procedure reports are released immediately into your electronic medical record. You may view this report before your referring provider. If you have questions, please contact your health care provider. TECHNIQUE: Multiplanar CT examination of the head was performed without the use of intravenous contrast. INDICATION: Left-sided weakness. Numbness. COMPARISON: MR brain performed earlier the same day. FINDINGS: No loss of pollack-white differentiation to suggest recent territorial infarct. No intracranial hemorrhage, abnormal extra-axial fluid collection, hydrocephalus or midline shift. The ventricles and cerebral sulci are normal in caliber. The basal cisterns are patent. The paranasal sinuses and mastoid air cells remain clear. The orbits and calvarium are unremarkable. The cerebellar tonsils are normal position. IMPRESSION: No acute intracranial findings. Please note that all CT scans at this facility use dose modulation, iterative reconstruction, and/or weight-based dosing when appropriate to reduce radiation dose to as low as reasonably achievable. Dictated by Francisco J Naranjo MD @ 03/09/2025 1:48:22 PM (Electronically Signed)
--- NOTE | 2025-03-09 11:21 | CRLHL7_ITS ---
For Patients: As a result of the Cures Act, medical imaging exams and procedure reports are released immediately into your electronic medical record. You may view this report before your referring provider. If you have questions, please contact your health care provider. INDICATION: Acute neurological deficit. COMPARISON: MRA head and neck dated 11/06/2024. TECHNIQUE: CTA neck with contrast bolus tracking, 3D angiographic rendering using maximum intensity projection (MIP) and images permanently archived. FINDINGS: The origins of the great vessels are patent. There is no significant carotid artery stenosis or dissection. There is no significant vertebral artery stenosis or dissection. IMPRESSION: Patent cervical arterial vasculature without hemodynamically significant stenosis. Please note that all CT scans at this facility use dose modulation, iterative reconstruction, and/or weight-based dosing when appropriate to reduce radiation dose to as low as reasonably achievable. Dictated by Len Randolph MD @ 03/10/2025 10:41:42 AM (Electronically Signed)
--- NOTE | 2025-03-09 11:21 | CRLHL7_ITS ---
For Patients: As a result of the Century Cures Act, medical imaging exams and procedure reports are released immediately into your electronic medical record. You may view this report before your referring provider. If you have questions, please contact your health care provider. CLINICAL HISTORY: Acute neurological deficit. TECHNIQUE: Standard helical CT image acquisition through the head following the administration of intravenous contrast was performed. 3D and MIP reconstructions were performed at a separate workstation and permanently archived. COMPARISON: MRA head dated 11/06/2024. FINDINGS: No intracranial proximal large vessel occlusion or flow-limiting luminal stenosis. No evidence of cerebral aneurysm. No findings to suggest an arterial-venous shunting lesion. The major dural venous sinuses and deep venous system are patent. IMPRESSION: No intracranial proximal large vessel occlusion, flow-limiting luminal stenosis, or cerebral aneurysm. Please note that all CT scans at this facility use dose modulation, iterative reconstruction, and/or weight-based dosing when appropriate to reduce radiation dose to as low as reasonably achievable. Dictated by Len Randolph MD @ 03/10/2025 10:44:19 AM (Electronically Signed)
--- NOTE | 2025-03-09 11:24 | CRLHL7_ITS ---
For Patients: As a result of the Cures Act, medical imaging exams and procedure reports are released immediately into your electronic medical record. You may view this report before your referring provider. If you have questions, please contact your health care provider. INDICATION: Left-sided weakness and paresthesias. TECHNIQUE: Multisequence multiplanar MRI of the brain without the use of intravenous contrast. COMPARISON: MRI brain dated 11/06/2024. FINDINGS: No evidence of acute ischemia. Similar few scattered foci of T2 prolongation within the white matter of both cerebral hemispheres. Unchanged hemosiderin staining within the left central sulcus. Stable additional focus of susceptibility artifact in the left perisylvian cortex. As before, punctate T2 prolongation within the inferior left cerebellar hemisphere (series 3, image 9). The ventricles are unchanged and normal in size. Flow voids of the larger intracranial arteries are preserved. Bone marrow signal intensity of the calvarium is within normal limits. The globes are symmetric. The paranasal sinuses and mastoid air cells are predominantly clear. IMPRESSION: 1. No acute intracranial abnormality. Specifically, no evidence of acute ischemia. 2. Similar few scattered foci of T2 prolongation within the supratentorial white matter, nonspecific, but commonly seen in the setting of mild chronic small vessel ischemic changes or chronic migraine headaches. 3. Unchanged hemosiderin staining within the left central sulcus and punctate susceptibility artifact in the left perisylvian cortex. Findings may represent sequela of prior trauma. 4. Stable punctate focus of T2 prolongation within the left cerebellar hemisphere which may represent a prominent perivascular space or tiny chronic lacunar infarcts. Dictated by Robin Gibbons MD @ 03/09/2025 12:12:31 PM (Electronically Signed)
--- NOTE | 2025-03-09 11:32 | ED_ITS ---
HPI - General Adult General Date Seen: 03/09/25 Chief complaint: Dizziness/Vertigo Stated complaint: off balance, tingly and dizziness Time Seen by Provider: 03/09/25 11:02 Source: patient Mode of arrival: ambulatory Limitations: no limitations History of Present Illness HPI narrative: Patient is a 49-year-old female presenting to the emergency department for left- sided weakness and numbness that started this morning when she woke up. Her last known well was last night before she went to bed. She has a history of multiple ischemic strokes. She states at that time she had right-sided deficits. This time it is left-sided. She states she had headache and neck pain yesterday but states those have since resolved. She has also been dealing with dizziness that has been going on since this weekend. Currently she states her left leg feels heavy and the entire left side of her body feels a tingling sensation. This includes her face. Was able to walk in today but feels like her leg is dragging behind her. Denies fevers, chills, chest pain, shortness of breath, abdominal pain, diarrhea, constipation, dysuria. No other concerns noted at this time. Related Data Home Medications ?Medication ?Instructions ?Recorded ?Confirmed fluticasone furoate 200 1 inh inhalation DAILY 07/0303/09/25 mcg-vilanterol 25 mcg/dose inhalation powder (Breo Ellipta) albuterol sulfate 90 mcg/actuation 2 puff inhalation Q 4H PRN 08/01/22 03/09/25 aerosol inhaler magnesium 250 mg tablet 250 mg PO HS 08/02/22 trazodone 100 mg tablet 100 mg PO HS sleep 08/02/22 03/09/25 cetirizine 10 mg tablet (Zyrtec) 10 mg PO DAILY 03/09/25 lorazepam 1 mg tablet 0.5 - 1 mg PO DAILY PRN dizz iness 05/07/24 03/09/25 citalopram 10 mg tablet 5 mg PO DAILY 09/20/2403/09 aspirin 81 mg tablet,delayed 243 mg PO DAILY 11/05/24 03/09/25 release lidocaine 4 % topical patch 1 patch topical Q24H 11/0503/09/25 psyllium husk 3.4 gram/5.4 gram 1 tbsp PO DAILY 03/09/25 oral powder sennosides 8.6 mg-docusate sodium 2 tab-cap PO BID PRN 11/05/24 03/09/25 50 mg capsule (Senna Plus) Allergies Allergy/AdvReac Type Severity Reaction Status Date / Time bupropion Allergy Intermediate Diarrhea Verified 11/13/24 15:34 codeine Allergy Intermediate epigastric Verified 11/13/24 15:34 pain erythromycin base Allergy Intermediate stomach Verified 11/13/24 15:34 upset, diarrhea doxycycline Allergy Mild burning Verified 11/13/24 15:34 sensation in hands and feet Iodinated Contrast Media AdvReac Flushing Verified 03/09/25 11:17 morphine AdvReac Verified 11/13/24 15:34 Review of Systems Status of ROS: Reports: 10 or more systems reviewed and unremarkable except as noted in History and below [facility] Medical History Ischemic cerebrovascular accident (CVA) (01/09/24) ?I63.9 - Cerebral infarction, unspecified (ICD-10) History of cerebrovascular disease ?Z86.79 - Personal history of other diseases of the circulatory system (ICD- 10) Dural arteriovenous fistula (~12/2023) ?I67.1 - Cerebral aneurysm, nonruptured (ICD-10) Fibromuscular dysplasia ?I77.3 - Arterial fibromuscular dysplasia (ICD-10) Seizure (01/14/24) ?R56.9 - Unspecified convulsions (ICD-10) History of cerebral angiography (01/09/24) ?Z98.890 - Other specified postprocedural states (ICD-10) Headache ?R51.9 - Headache, unspecified (ICD-10) 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, unspecified (ICD-10) Mild persistent asthma (09/27/22) ?J45.30 - Mild persistent asthma, uncomplicated (ICD-10) Asthma ?J45.909 - Unspecified asthma, uncomplicated (ICD-10) History of blood transfusion (1994) ?Z92.89 - Personal history of other medical treatment (ICD-10) History of vitamin D deficiency ?Z86.39 - Personal history of other endocrine, nutritional and metabolic disease (ICD-10) Anxiety and depression ?F41.9 - Anxiety disorder, unspecified (ICD-10) ?F32.A - Depression, unspecified (ICD-10) Fibromyalgia ?M79.7 - Fibromyalgia (ICD-10) H/O bronchopulmonary dysplasia ?Z87.09 - Personal history of other diseases of the respiratory system (ICD- 10) Stage 1 chronic kidney disease (11/16/20) ?N18.1 - Chronic kidney disease, stage 1 (ICD-10) Simple renal cyst (10/2020) ?N28.1 - Cyst of kidney, acquired (ICD-10) Asthma ?J45.909 - Unspecified asthma, uncomplicated (ICD-10) Surgical History History of laparoscopy ?Z98.890 - Other specified postprocedural states (ICD-10) S/P dilation and curettage (1994) ?Z98.890 - Other specified postprocedural states (ICD-10) H/O tubal ligation ?Z98.51 - Tubal ligation status (ICD-10) Status post excision of lipoma (2011) ?Z98.890 - Other specified postprocedural states (ICD-10) ?Z86.018 - Personal history of other benign neoplasm (ICD-10) History of medial meniscus repair of left knee (08/04/13) ?Z98.890 - Other specified postprocedural states (ICD-10) History of laparoscopic cholecystectomy (09/29/20) ?Z90.49 - Acquired absence of other specified parts of digestive tract (ICD- 10) History of hysterectomy for benign disease (2005) ?Z90.710 - Acquired absence of both cervix and uterus (ICD-10) History of catheter-based closure of atrial septal defect (06/2006) ?Z87.74 - Personal history of (corrected) congenital malformations of heart and circulatory system (ICD-10) Family History Maternal Grandmother Stroke Paternal Grandfather Diabetes Daughter Depression Social History Narrative: to Olaf (would be medical decision maker if needed), adult children 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 [employer] She has a college education Nonsmoker, no ETOH use What is your current living situation?: I presently have a place to live Problems where you live: no known problems Problems where you live details: N/A In the past 12 months, utilities in danger of being shut off: no In past 12 months, lack of transportation kept you from medical appts, meetings, work, or getting things needed for daily living: no In the past 12 mos, have been you worried that your food would run out before you had money to buy more?: never true In the past 12 mos, the food you bought just didn't last and you didn't have money to buy more?: never true Highest level of school completed/degree received: Associate degree: academic program Smoking Status: Never smoker Do you use any of these nicotine containing products: None Second hand tobacco smoke exposure: No How often do you have a drink containing alcohol: never How often do you have six or more drinks on one occasion: Never AUDIT-C Alcohol total score: 0 Non-prescribed substance use: denies use Caffeine: Yes How often does anyone, including family, friends and others, physically hurt you : never How often does anyone, including family, friends and others, insult or talk down to you: never How often does anyone, including family, friends and others, threaten you with harm: never How often does anyone, including family, friends and others, scream or curse at you: never Are you using contraception or practicing any form of control: Yes (hysterectomy) service: No Exam Narrative: Exam Narrative: Const: Well-nourished, Well-developed, in mild distress Eyes: PERRL, no conjunctival injection, and symmetrical lids HENT: Atraumatic external nose and ears. Moist mucous membranes. Neck: Symmetric, trachea midline, No thyromegaly. CVS: RRR, No murmurs or gallops. Peripheral pulses 2+ and equal in all extremities RESP: Unlabored respiratory effort. Clear to auscultation bilaterally. GI: Nontender/Nondistended, No rebound or guarding. MSK:Extremities w/o deformity, Normal Active ROM Skin: Warm, Dry. No rashes or lesions. Neuro: Normal Muscle tone, Cranial nerves 2-12 grossly intact but if symptoms some decreased sensation to the left side of her face, normal [id number], normal [id number], normal gait, normal strength may be slightly worse on the left compared to the right but otherwise normal, decreased sensation to left extremities more notably in the left lower extremity. Normal station to the right extremities, normal rapid alternating movements. NIH stroke scale 2 Psych: Awake, Alert, & Oriented x3. Appropriate mood and affect. Const: Vital Signs, click to edit/add: Vital Signs - 24 hr 03/09/25 10:34 03/09/25 12:35 03/09/25 12:39 Temperature 97.0 F L Pulse Rate 77 101 H Pulse Rate [Pulse Oximeter] 70 Respiratory Rate 16 17 Blood Pressure 156/90 H Blood Pressure [Le ft Upper Arm] 153/90 H Pulse Oximetry 97 98 97 Oxygen Delivery Me thod Room Air Room Air 03/09/25 12:45 03/09/25 13:11 03/09/25 13:15 Temperature Pulse Rate 82 84 80 Pulse Rate [Pulse Oximeter] Respiratory Rate 12 16 Blood Pressure Blood Pressure [Le ft Upper Arm] Pulse Oximetry 98 98 98 Oxygen Delivery Me thod 03/09/25 13:37 03/09/25 13:45 03/09/25 14:00 Temperature Pulse Rate 85 79 75 Pulse Rate [Pulse Oximeter] Respiratory Rate 37 H 8 L 12 Blood Pressure Blood Pressure [Le ft Upper Arm] Pulse Oximetry 96 97 95 Oxygen Delivery Me thod Course Vital Signs Vital signs: Initial Vital Signs Temperature 97.0 F L 03/09/25 10:34 Temperature Source Temporal Artery Scan 03/09/25 10:34 Pulse Rate 70 03/09/25 10:34 Pulse Rhythm Regular 03/09/25 10:34 Respiratory Rate 16 03/09/25 10:34 Blood Pressure 153/90 H 03/09/25 10:34 Blood Pressure Mean 111 H 03/09/25 10:34 Blood Pressure Position Sitting 03/09/25 10:34 Pulse Oximetry 97 03/09/25 10:34 Oxygen Delivery Method Room Air 03/09/25 10:34 Vital Signs Temperature 97.0 F L 03/09/25 10:34 Pulse Rate 70 03/09/25 10:34 Respiratory Rate 16 03/09/25 10:34 Blood Pressure 153/90 H 03/09/25 10:34 Pulse Oximetry 97 03/09/25 10:34 Oxygen Delivery Method Room Air 03/09/25 10:34 Temperature 97.0 F L 03/09/25 10:34 Pulse Rate 75 03/09/25 14:00 Respiratory Rate 12 03/09/25 14:00 Blood Pressure 156/90 H 03/09/25 12:39 Pulse Oximetry 95 03/09/25 14:00 Oxygen Delivery Method Room Air 03/09/25 12:39 Medications Administered Medications: Discontinued Medications Generic Name Dose Route Start Last Admin Trade Name Lindsey PRN Reason Stop Dose Admin Diphenhydramine HCl 50 mg 03/09/25 11:20 03/09/25 12:05 Diphenhydramine 50 Mg/Ml Inj IVP 03/09/25 11:21 50 mg ONCE ONE Administration Hydrocortisone Sodium Succinate 200 mg 03/09/25 11:20 03/09/25 12:05 Hydrocortisone Sod Succinate 50 Mg/Ml Inj IVP 03/09/25 11:21 200 mg ONCE ONE Administration Medical Decision Making [facility] Narrative Medical decision making narrative: Patient is a 49-year-old female presenting for left-sided weakness and numbness. She does have history of ischemic strokes and my biggest concern at this time is a stroke. She does not present within the window for tPA as her last known well was last night. Due to that we will work pending CT, CTA, MRI. MRI is available right now so that will be done 1st. Will also check CBC, CMP, urinalysis, magnesium, viral swabs, EKG, troponin. She is not having clear signs of a large occlusion but would be amenable to thrombectomy at this time. We tried to do a CTA right after the MRI was done but patient refused. She st ates she gets flushing and matting of her eyes.We informed her of those are to allergies but she states she will not do the CTA without the premedication. MRI returned showing no acute concerning abnormalities. All findings were chronic. CT scan of the head shows no acute concerning abnormalities. CTA preliminary read showed no acute concerning abnormalities. Lab work is all within normal limits. She sees neurology through [facility] so I spoke to the on- call neurologist. After reviewing the case with me he is not believe there is any current adjustment to treatment necessary as she is already on aspirin. He does recommend neurology follow-up. Patient is agreeable to this plan Lab Data Labs: Lab Results 03/09/25 03/09/25 03/09/25 Range/Units 11:10 12:35 13:10 WBC 5.97 (4.50-11.00) K/uL RBC 4.83 (4.00-5.20) m/uL Hgb 14.8 (12.0-16.0) gm/dL Hct 44.6 (33.0-51.0) % MCV 92 (80-100) fL MCH 31 (26-34) pg MCHC 33 (32-36) gm/dL RDW Coeff of [place] 11.7 (11.5-15.5) % Plt Count 168 (140-440) K/uL Neut % (Auto) 54.4 (42.0-72.0) % Lymph % (Auto) 30.2 (20-44) % [place] % (Auto) 6.5 (0.0-11.0) % Eos % (Auto) 8.2 H (0.0-7.0) % Baso % (Auto) 0.7 (0.0-3.0) % Neut # (Auto) 3.25 (1.7-7.0) K/uL Lymph # (Auto) 1.80 (0.90-2.90) K/uL [place] # (Auto) 0.40 (0.00-0.90) K/UL Eos # (Auto) 0.50 (0.00-0.50) K/uL Baso # (Auto) 0.04 (0.00-0.30) K/uL Abs Immat Gran (auto) 0.00 (0.00-0.30) K/uL Imm/Tot Granulo (auto) 0.0 % Sodium 140 (135-149) mmol/L Potassium 4.4 (3.6-5.1) mmol/L Chloride 104 (96-114) mmol/L Carbon Dioxide 28 (20-32) mmol/L Anion Gap 8 (7-15) mEq/L BUN 19 (5-24) mg/dL Creatinine 0.9 (0.5-1.5) mg/dL Estimated Creat Clear 77.11 Estimated GFR 79 ml/min Glucose 100 (60-115) mg/dL Calcium 9.8 (8.4-10.6) mg/dL Magnesium 1.8 (1.5-2.6) mg/dL Total Bilirubin 0.7 (0.1-1.5) mg/dL AST 24 (12-35) U/L ALT 14 (4-35) U/L Alkaline Phosphatase 72 (40-150) U/L Troponin I < 0.01 (0.01-0.04) ng/mL Total Protein 7.7 (6.0-8.3) g/dL Albumin 4.6 (3.3-5.0) g/dL Urine Color Yellow (Yellow) Urine Appearance Clear (Clear) Urine pH 7.0 (5.0-8.5) Ur Specific [place] 1.010 (1.000-1.030) Urine Protein Negative (Negative) Urine Glucose (UA) Negative (Negative) Urine Ketones Negative (Negative) Urine Blood Trace-intact A (Negative) Urine Nitrite Negative (Negative) Urine Bilirubin Negative (Negative) Urine Urobilinogen 0.2 (0.2-1.0) Ur Leukocyte Esterase Negative (Negative) Urine RBC 0-2 (0-2) Urine WBC 0-2 (0-5) Ur Squamous Epith Cells Few (None-Few) Urine Bacteria None (None) SARS-CoV-2 (PCR) Negative SARS-CoV-2 (Negative) Influenza Type A (PCR) Negative PCR FLU A (Negative) Influenza Type B (PCR) Negative PCR FLU B (Negative) RSV (PCR) Negative PCR RSV (Negative) Imaging Data CT scan - head: Attestation: I have reviewed the pertinent imaging results. Radiologist's impression: No acute intracranial findings. Please note that all CT scans at this facility use dose modulation, iterative reconstruction, and/or weight-based dosing when appropriate to reduce radiation dose to as low as reasonably achievable. Dictated by Francisco J Naranjo MD @ 03/09/2025 1:48:22 PM MR Brain: Attestation: I have reviewed the pertinent imaging results. Radiologist's impression: 1. No acute intracranial abnormality. Specifically, no evidence of acute ischemia. 2. Similar few scattered foci of T2 prolongation within the supratentorial white matter, nonspecific, but commonly seen in the setting of mild chronic small vessel ischemic changes or chronic migraine headaches. 3. Unchanged hemosiderin staining within the left central sulcus and punctate susceptibility artifact in the left perisylvian cortex. Findings may represent sequela of prior trauma. 4. Stable punctate focus of T2 prolongation within the left cerebellar hemisphere which may represent a prominent perivascular space or tiny chronic lacunar infarcts. Dictated by Robin Gibbons MD @ 03/09/2025 12:12:31 PM CTA head: Attestation: I have reviewed the pertinent imaging results. Radiologist's impression: PRELIMINARY IMPRESSION: No large vessel occlusion or intracranial aneurysm identified. Full final dictated report to follow. Dictated by Francisco J Naranjo MD @ 03/09/2025 1:54:48 PM CTA neck: Radiologist's impression: No hemodynamically significant stenoses of the cervical arterial vasculature. Full final dictated report to follow. Dictated by Francisco J Naranjo MD @ 03/09/2025 1:56:55 PM ECG Data Attestation: I personally reviewed and interpreted this ECG as follows: Prior ECG tracings: available for review Interpretation: Normal sinus rhythm rate of 70 beats per minute, normal intervals axis there are diffuse T-wave inversions seen in previous EKGs also. No ST abnormalities. Appears similar previous EKGs on file Discharge Plan Discharge Clinical Impression: Left sided numbness Patient Disposition: Home, Self-Care Condition: Stable Instructions: Paresthesia (ED) Additional Instructions: I spoke to [facility]. They recommend you continue taking your aspirin and follow-up with neurology. Return to emergency department for new or wors ening symptoms Prescriptions: No Action cetirizine [Zyrtec] 10 mg tablet 10 mg PO DAILY albuterol sulfate 90 mcg/actuation HFA aerosol inhaler 2 puff inhalation Q4H PRN magnesium 250 mg tablet 250 mg PO HS citalopram 10 mg tablet 5 mg PO DAILY psyllium husk 3.4 gram/5.4 gram powder 1 tbsp PO DAILY Senna Plus 8.6-50 mg capsule 2 tab-cap PO BID PRN lidocaine 4 % adhesive patch,medicated 1 patch TOPICAL Q24H Rx Instructions: Place 1 patch onto the skin every 24 hours To prevent lidocaine toxicity, patient should be patch free for 12 hrs daily. aspirin 81 mg Tablet,Delayed Release (Dr/Ec) 243 mg PO DAILY fluticasone furoate-vilanterol [Breo Ellipta] 200-25 mcg/dose blister with device 1 inh INHALATION DAILY trazodone 100 mg tablet 100 mg PO HS lorazepam 1 mg tablet 0.5 - 1 mg PO DAILY PRN (Reason: dizziness) Follow Up/Referrals: Provider,Not a Local [Non-Staff, Family Practice] Stand Alone Forms: SMS [facility] Info Instructions
[2025-03-09 11:34] LABS: Basophils Absolute Auto 0.04 K/uL (0.00-0.30); Basophils Percent Auto 0.7 % (0.0-3.0); Eosinophils Percent Auto 8.2 % (0.0-7.0); Hematocrit 44.6 % (33.0-51.0); Hemoglobin* 14.8 gm/dL (12.0-16.0); Lymphocytes Percent Auto 30.2 % (20-44); Mean Corpuscular HGB Conc 33 gm/dL (32-36); Mean Corpuscular Hemoglobin 31 pg (26-34); Mean Corpuscular Volume 92 fL (80-100); Monocytes Percent Auto 6.5 % (0.0-11.0); Neutrophils Absolute Auto 3.25 K/uL (1.7-7.0); Neutrophils Percent Auto 54.4 % (42.0-72.0); Platelet Count* 168 K/uL (140-440); RDW Coefficient of Variation % 11.7 % (11.5-15.5); Red Blood Count 4.83 m/uL (4.00-5.20); Slide Review Reflex No; White Blood Count* 5.97 K/uL (4.50-11.00)
[2025-03-09 11:47] LABS: Albumin* 4.6 g/dL (3.3-5.0); Chloride* 104 mmol/L (96-114); Potassium* 4.4 mmol/L (3.6-5.1); Sodium* 140 mmol/L (135-149)
[2025-03-09 11:50] LABS: Alanine Aminotransferase* 14 U/L (4-35); Alkaline Phosphatase* 72 U/L (40-150); Anion Gap 8 mEq/L (7-15); Aspartate Amino Transferase* 24 U/L (12-35); Bilirubin Total* 0.7 mg/dL (0.1-1.5); Blood Urea Nitrogen* 19 mg/dL (5-24); Carbon Dioxide* 28 mmol/L (20-32); Creatinine* 0.9 mg/dL (0.5-1.5); Est. Creatinine Clearance* 77.11; Estimated Glomerular Filt Rate 79 ml/min; Total Protein* 7.7 g/dL (6.0-8.3)
[2025-03-09 11:51] LABS: Calcium* 9.8 mg/dL (8.4-10.6); Glucose* 100 mg/dL (60-115); Magnesium* 1.8 mg/dL (1.5-2.6)
[2025-03-09] MEDS: HYDROCORTISONE SOD SUCCINATE 50 MG/ML inj 200 MG IVP (12:05)
[2025-03-09] MEDS: diphenhydrAMINE 50 MG/ML inj IVP (12:05)
[2025-03-09 12:07] LABS: Troponin I* < 0.01 ng/mL (0.01-0.04)
--- OUTSIDE RECORDS SUMMARY | 2025-03-09 12:21 | XMS_ITS | Encounter Summary ---
Author Organization [place] Address [address] [place] [address] Care Team Providers Care Fabrication Engineer Name Role Phone Winston Villatoro OD Unavailable [phone] Denise Woodson APRN ELECTRICAL HIGH TENSION TESTER Unavailable +[phone] Denise Woodson APRN ELECTRICAL HIGH TENSION TESTER Primary Care Provider Usha Simon APRN ELECTRICAL HIGH TENSION TESTER Unavailable + [phone] Dangelo Salinas MD Unavailable Anastasia Stearns RN Unavailable Germaine Aleman CHW Unavailable +[phone] Joya Lira RP Unavailable +[phone] Joya Lira RP Unavailable Fabi Coates MD Unavailable [phone] Danna CardenasC Unavailable +[phone] SinanselmoledyArthur TELEHEALTH CASE MANAGER Unavailable [phone] Randy Maradiaga DO Unavailable + Tete Wang MD Unavailable [phone] Dahlia Joyce MD Unavailable +[phone] Lisa Zambrano MD Unavailable + [phone] Tete Wang MD Unavailable +[phone] Any Joiner MD Unavailable Reason for Visit * Reason Onset Date Comments Forms 10/14/2024 Return to Work Encounter Details Date Type Department Care Team (Late st Contact Info) Description 10/14/2024 MyC Medical Advice [facility] [address] [place] [phone] Denise Woodson APRN [facility] [address] [place] [address] Forms (Return to Work) Social [...] Never 09/16/2024 How often do you attend taoism or oriental orthodox serv ices? 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 Qing Copeland Lead Movie Operator [facility] Phoebe Gross IFIED MEDICAL ASSISTANT * Telephone Encounter - Qing Valentine - 10/15/2024 7:00 AM CST Forms/Letter Request Type of form/letter: OTHER: Return to Work Do we have the form/letter: Yes: [employer] Return to Work/Workability Who is the form from? Patient Where did/will the form come from? form was sent via Jack in the Box When is form/letter needed by: [employer]I How would you like the form/letter returned: Jack in the Box Patient Notified form requests are processed in 5-7 business days:N/A Could we send this information to you in Jack in the Box or would you prefer to receive a phone call?: Patient would like to be contacted via InstantQt Placed form in provider's basket for review and signature Qing Copeland Lead Movie Operator [facility] Phoebe Gross IFIED MEDICAL ASSISTANT documented in this encounter Plan of Treatment Upcoming Encounters Date Type Department Care Team (Late st Contact Info) Description 03/16/2025 8:00 AM CDT Virtual Visit M [address] [phone] Myles, Bindu, OD 909 [place], [place] 563555 Rubi Johnson, OT [facility] 150 [place] [address] 03/26/2025 12:45 PM CDT Therapy Visit [facility] 150 [place] [phone] Bindu Bueno, OD 909 [place], [place] 6[address] Rubi Johnson, OT [address] [address] 04/02/2025 9:30 AM CDT Therapy Visit [address] [phone] Randy Maradiaga, DO [address] [place] [address] Delicia George, PT [address] [place], [place] 806617 04/06/2025 11:00 AM CDT Virtual Visit [address] [phone] Bindu Bueno, OD 909 [place] [address] Rubi Johnson, OT [address] [address] 04/06/2025 12:30 PM CDT Therapy Visit [address] [phone] Randy Maradiaga, DO [address] [place] [address] 408375 Delicia George, PT 150 [place] [address] 04/16/2025 11:00 AM CDT [facility] [phone] Bindu Bueno, OD 909 [place] [address] Rubi Johnson, OT [facility] [address] [address] 04/23/2025 12:45 PM CDT Therapy Visit [address] [phone] Bindu Bueno, OD 909 [place] [address] Rubi Johnson, OT [address] [address] 04/23/2025 2:00 PM CDT Therapy Visit [address] [phone] Randy Maradiaga, DO 909 [place] [address] Delicia George, PT 150 [place] [address] 04/30/2025 10:15 AM CDT [facility] [phone] Randy Maradiaga, DO 909 [place] [address] Delicia George, PT 150 [place] [address] 05/04/2025 11:00 AM CDT Virtual Visit [address] [phone] Myles Bindu, OD 909 [place] [address] Rubi Johnson, [address] [address] 05/07/2025 10:15 AM CDT Therapy Visit [address] [phone] Randy Maradiaga, DO [address] [place] [address] Delicia George, PT 150 [place] [address] 05/14/2025 10:15 AM CDT Therapy Visit [address] [phone] Randy Maradiaga, DO [address] [place] [address] Delicia George, PT 150 [place] [address] 05/14/2025 11:00 AM CDT [facility] 150 [place] [phone] Bindu Bueno, OD [address] [place] [address] 684965 Rubi Johnson, OT [facility] 150 [place] [address] 06/01/2025 11:15 AM CDT Appointment [facility] Imaging [address] [place] [address] [place] [phone] Robin Zepeda MD [address] [place] [address] 263385 06/02/2025 2:20 PM CDT Virtual Visit [facility] [address] [phone] Robin Zepead MD [address] [place] [address] 326965 07/01/2025 12:00 PM CDT Virtual Visit [facility] Rehabilitation [facility] [address] [phone] Santa Menon, PANilesC [address] [place] [address] 047525 08/03/2025 4:30 PM CERTIFIED MEDICAL ASSISTANT Virtual Visit [facility] [address] [phone] Any Joiner MD [address] [place] [address] 230955 documented as of this encounter Visit Diagnoses Not on filedocumented in this encounter Additional Health Concerns Infection Onset Date Last Indicated Resolved Time Rule Out COVID-19 11/14/2024 11/14/2024 11/14/2024 8:25 PM CERTIFIED MEDICAL ASSISTANT Assessment Noted Time PHQ-9 Depression Total Score: 0 09/18/19 12:46 PM CERTIFIED MEDICAL ASSISTANT documented as of this encounter Care Teams Fabrication Engineer Relationship Specialty Start Date End Date Winston Villatoro OD [facility] [place] [address] [place] [address] PCP - Ophthalmology Ophthalmology 02/11/13 Denise Woodson APRN ELECTRICAL HIGH TENSION TESTER [address] [place] [address] PCP - General Family Practice 09/21/20 Denise Woodson APRN ELECTRICAL HIGH TENSION TESTER [address] [place] [address] Assigned PCP 07/17/20 Usha Simon APRN ELECTRICAL HIGH TENSION TESTER 909 [facility]2121[place], [place] 7[address] Nurse Practitioner Neurological Surgery 01/24/24 Dangelo Salinas MD 1650 [facility] 200 [place], [place] [phone] Neurology 01/27/24 Anastasia Stearns, RN Lead High Wire Artist 02/06/24 12/17/24 Germaine Aleman, CHW Community Health Worker Primary Care - CC 02/18/2412/17/24 Joya Lira RPH [address] [place], [place] [phone] Pharmacist Pharmacist 05/25/24 Joya Lira [facility] [address], [place] [address] Assigned MTM Pharmacist 06/08/24 Fabi Coates MD [address] [place] [address] 75 [place], [place] 789615 Genetics, Clinical 06/18/24 Danna Cardenas PA-C 6405 [place], [place] 807035 Assigned Heart and Vascular Provider 07/08/24 12/05/24 Arthur Salas TELEHEALTH CASE MANAGER [address] [address] Assigned Behavioral Health Provider 08/08/24 Randy Maradiaga DO [address] [place] [address] 621985 Assigned Neuroscience Provider 08/08/24 Tete Wang MD 2450 [place], [place] 546714 Genetics, Clinical 10/30/24 Dahlia Joyce MD [address] [place] [address] 430125 Radiology Neuroradiology 11/17/24 Lisa Zambrano MD 6405 [facility] [address] [place] [address] Assigned Heart and Vascular Provider 12/06/24 Tete Wang MD 2450 [place] [address] Assigned Pediatric Specialist Provider 01/06/25 Any Joiner MD 420 [facility] 276 [place] [address] Assigned Pulmonology Provider 02/05/25 documented as of this encounter
--- OUTSIDE RECORDS SUMMARY | 2025-03-09 12:21 | XMS_ITS | Encounter Summary ---
Author Organization [place] Address [address] [place] [address] Care Team Providers Care Golf Stud Riveter Name Role Phone Winston Villatoro OD Unavailable [phone] Denise Woodson APRN SYSTEM SAFETY ENGINEER Unavailable +[phone] Denise Woodson APRN SYSTEM SAFETY ENGINEER Primary Care Provider Usha Simon APRN SYSTEM SAFETY ENGINEER Unavailable + [phone] Dangelo Salinas MD Unavailable Anastasia Stearns RN Unavailable Germaine Aleman CHW Unavailable +[phone] Joya Lira RP Unavailable +[phone] Joya Lira RP Unavailable +[phone] Fabi Coates MD Unavailable [phone] Danna CardenasC Unavailable +[phone] SinanselmoledyArthur CONFERENCE PLANNING MANAGER Unavailable +[phone] Randy Maradiaga DO Unavailable + Tete Wang MD Unavailable +[phone] Dahlia Joyce MD Unavailable +[phone] Lisa Zambrano MD Unavailable + [phone] Tete Wang MD Unavailable +[phone] Any Joiner MD Unavailable Encounter Details Date Type Department Care Team (Late st Contact Info) Description 11/26/2024 MyC Medical Advice [facility] [address] [place] [address] Qing Valentine Social History Tobacco Use Types Packs/Day Years [...] How often do you attend quaker or pentecostal serv ices? Never 09/16/2024 Do you belong [...] PHQ-2 Answer Date Recorded PHQ-2 Score 0 11/13/2024 [facility] [place] of Occupat ional Health - Occupational Stress [...] an overnight long term, or couch-surfing.) Yes 09/16/2024 Are you worried [...] on file Legal Sex Female 4:05 AM SLD EDUCATIONAL AIDE Gender Identity Not on file Sexual [...] Description 03/16/2025 8:00 AM CDT Virtual Visit [facility] 150 [place] [phone] Bindu Bueno, OD 909 [place], [place] 0[address] Rubi Johnson, OT [address] [address] 03/26/2025 12:45 PM CDT Therapy Visit [address] [phone] Bindu Bueno, OD [address] [place] [address] 163565 Rubi Johnson, OT [address] [address] 04/02/2025 9:30 AM CDT Therapy Visit [address] [phone] Randy Maradiaga, DO 909 [place], [place] 653715 Delicia George, PT 150 [facility] [address] 04/06/2025 11:00 AM CDT Virtual Visit [address] [phone] Bindu Bueno, OD 909 [place], [place] 322615 Rubi Johnson, OT [place] [address] [place] [address] 04/06/2025 12:30 PM CDT Therapy Visit [facility] 150 [place] [phone] Randy Maradiaga, DO 909 [place] [address] Delicia George, PT 150 [facility] [place] [address] 04/16/2025 11:00 AM CDT Therapy Visit [address] [phone] Bindu Bueno, OD [address] [place] [address] Rubi Johnson, OT [address] [address] 04/23/2025 12:45 PM CDT [facility] [phone] Bindu Bueno, OD 909 [place] [address] Rubi Johnson, OT [facility] [address] [place] [address] 04/23/2025 2:00 PM CDT Therapy [facility] [phone] Randy Maradiaga, DO 909 [place] [address] Delicia George, PT 150 [facility] [place] [address] 04/30/2025 10:15 AM CDT Therapy Visit [address] [phone] Randy Maradiaga, DO [address] [place] [address] 463605 Delicia George, PT 150 [place] [address] 05/04/2025 11:00 AM CDT Virtual Visit [address] [phone] Bindu Bueno, OD 909 [place], [place] 7105[address] Rubi Johnson, [address] [address] 05/07/2025 10:15 AM CDT Therapy Visit [address] [phone] Randy Maradiaga, DO [address] [place] [address] 087115 Delicia George, PT 150 [place] [address] 05/14/2025 10:15 AM CDT Therapy Visit [facility] 150 [place] [phone] Randy Maradiaga, DO [address] [place] [address] Delicia George, PT 150 [place], [place] 655097 05/14/2025 11:00 AM CDT Therapy Visit [address] [phone] Bindu Bueno, OD 909 [place] [address] Rubi Johnson, [address] [address] 06/01/2025 11:15 AM CDT Appointment [facility] Imaging [address] [place] [phone] Robin Zepeda MD [address] [place] [address] 174625 06/02/2025 2:20 PM CDT Virtual Visit [facility] Neurosurgery Clinic [address] [phone] Robin Zepeda MD [address] [place] [address] 296745 07/01/2025 12:00 PM CDT Virtual Visit [facility] Physical Medicine and Rehabilitation Clinic [address] [phone] Santa Menon PA-C 909 [place] [address] 08/03/2025 4:30 PM SLD EDUCATIONAL AIDE Virtual Visit [facility] [place] 909 [place] [phone] Any Joiner MD 420 [facility] 276 [place], [place] [phone] documented as of this encounter Visit Diagnoses Not on filedocumented in this encounter Additional Health Concerns Assessment Noted Time PHQ-9 Depression Total Score: 0 09/18/19 25 12:46 PM SLD EDUCATIONAL AIDE documented as of this encounter Care Teams Golf Stud Riveter Relationship Specialty Start Date End Date Winston Villatoro OD [facility] 701 [facility] [address] [place] [address] PCP - Ophthalmology Ophthalmology 02/11/13 Denise Woodson APRN SYSTEM SAFETY ENGINEER [address] [place] [address] PCP - General Family Practice 09/21/20 Denise Woodson APRN SYSTEM SAFETY ENGINEER [address] [place] [address] Assigned PCP 07/17/20 Usha Simon APRN SYSTEM SAFETY ENGINEER [address] [place] [address] [id number] [place] [address] Nurse Practitioner Neurological Surgery 01/24/24 Dangelo Salinas MD [address] [place] [address] Neurology 01/27/24 Anastasia Stearns, RN Lead Senior Care Assistant 02/06/24 12/17/24 Germaine Aleman, [facility] Community Health Worker Primary Care - CC 02/18/2412/17/24 Joya Lira [facility] [address] [place] [address] Pharmacist Pharmacist 05/25/24 Joya Lira [facility] 3809 [place] [address] Assigned MTM Pharmacist 06/08/24 Fabi Coates MD [address] [place] [address] 157265 Genetics, Clinical 06/18/24 Danna Cardenas PA-C [facility]5 [place], [place] 819125 Assigned Heart and Vascular Provider 07/08/24 12/05/24 Arthur Salas, CONFERENCE PLANNING MANAGER [address] [place] [address] Assigned Behavioral Health Provider 08/08/24 Randy Maradiaga DO 909 [place], [place] 574005 Assigned Neuroscience Provider 08/08/24 Tete Wang MD 2450 [place] [address] Genetics, Clinical 10/30/24 Dahlia Joyce MD 909 [place] [address] Radiology Neuroradiology 11/17/24 Lisa Zambrano MD 6405 [facility] [address] [place] [address] Assigned Heart and Vascular Provider 12/06/24 Tete Wang MD 2450 [place], [place] 709854 Assigned Pediatric Specialist Provider 01/06/25 Any Joiner MD 420 [facility] 276 [place], [place] 705145 Assigned Pulmonology Provider 02/05/25 documented as of this encounter
--- OUTSIDE RECORDS SUMMARY | 2025-03-09 12:21 | XMS_ITS | Encounter Summary ---
Author Organization [place] Address [address] [place] [address] Care Team Providers Care Captain/Check Airman Name Role Phone Winston Villatoro OD Unavailable [phone] Denise Woodson APRN BAR MACHINE OPERATOR MULTIPLE SPINDLE Unavailable [phone] Denise Woodson APRN BAR MACHINE OPERATOR MULTIPLE SPINDLE Primary Care Provider Usha Simon APRN BAR MACHINE OPERATOR MULTIPLE SPINDLE Unavailable + [phone] Dangelo Salinas MD Unavailable Anastasia Stearns RN Unavailable Germaine Aleman CHW Unavailable [phone] Joya Lira RP Unavailable +[phone] Joya Lira RP Unavailable +[phone] Fabi Coates MD Unavailable [phone] Danna CardenasC Unavailable [phone] SinanselmoledyArthur FIBRE CEMENT MOULDER Unavailable [phone] Randy Maradiaga DO Unavailable + Tete Wang MD Unavailable +[phone] Dahlia Joyce MD Unavailable +[phone] Lisa Zambrano MD Unavailable + [phone] Tete Wang MD Unavailable +[phone] Any Joiner MD Unavailable Encounter Details Date Type Department Care Team (Late st Contact Info) Description 10/14/2024 MyC Medical Advice [facility] [address] [place] [address] Justino Janeen L Social History Tobacco Use Types Packs/Day Years [...] Answer Date Recorded PHQ-2 Score 0 09/29/2024 [facility] [place] of Occupat ional Health - Occupational Stress [...] on file Legal Sex Female 4:05 AM LOOP MACHINE OPERATOR Gender Identity Not on file Sexual Orientation Not on file 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 Not on file Not on file Not on file Not on file Not on file documented as of this encounter Plan of Treatment Upcoming Encounters Date Type Department Care Team (Late st Contact Info) Description 03/16/2025 8:00 AM CDT Virtual Visit [facility] 150 [place] [phone] Bindu Bueno, OD 909 [place] [address] Rubi Johnson, OT [address] [address] 03/26/2025 12:45 PM CDT Therapy Visit [address] [phone] Bindu Bueno, OD 909 [place] [address] Rubi Johnson, OT [address] [address] 04/02/2025 9:30 AM CDT Therapy Visit [address] [phone] Randy Maradiaga, DO 909 [place] [address] Delicia George, PT 150 [place] [address] 04/06/2025 11:00 AM CDT Virtual Visit [address] [phone] Bindu Bueno, OD 909 [place], [place] 286305 Rubi Johnson, OT [facility] 150 [place] [address] 04/06/2025 12:30 PM CDT Therapy [facility] 150 [place] [phone] Randy Maradiaga, DO 909 [place] [address] Delicia George, PT 150 [facility] [place] [address] 04/16/2025 11:00 AM CDT Therapy Visit [address] [phone] Magali Buenoissa, OD 9 [place] [address] Rubi Johnson, OT [address] [address] 04/23/2025 12:45 PM CDT Therapy Visit [facility] 150 [place] [phone] Bindu Bueno, OD 909 [place] [address] Rubi Johnson, OT [address] [address] 04/23/2025 2:00 PM CDT Therapy Visit [address] [phone] Randy Maradiaga, DO 909 [place] [address] Delicia George, PT 150 [facility] [place] [address] 04/30/2025 10:15 AM CDT Therapy Visit [address] [phone] Randy Maradiaga, DO [address] [place] [address] 890755 Delicia George, PT 150 [place] [address] 05/04/2025 11:00 AM CDT Virtual Visit [address] [phone] Bindu Bueno, OD 909 [place] [address] Rubi Johnson, OT [address] [address] 05/07/2025 10:15 AM CDT Therapy Visit [address] [phone] Randy Maradiaga, DO [address] [place] [address]755 Delicia George, PT 150 [place] [address] 05/14/2025 10:15 AM CDT Therapy Visit [facility] 150 [place] [phone] Randy Maradiaga, DO [address] [place] [address] Delicia George, PT 150 [place], [place] 985097 05/14/2025 11:00 AM CDT Therapy Visit [address] [phone] Bindu Bueno, OD 909 [place] [address] Rubi Johnson, [facility] 150 [place] [address] 06/01/2025 11:15 AM CDT Appointment [facility] Imaging [address] [place] [phone] Robin Zepeda MD [address] [place] [address] 278645 06/02/2025 2:20 PM CDT Virtual Visit [facility] Neurosurgery Clinic [address] [phone] Robin Zepeda MD [address] [place] [address] 195185 07/01/2025 12:00 PM CDT Virtual Visit [facility] Physical [facility] Rehabilitation Clinic [address] [phone] Santa Menon PA-C 909 [place], [place] 179695 08/03/2025 4:30 PM LOOP MACHINE OPERATOR Virtual Visit [facility] [place] 825379 [place] [phone] Any Joiner MD 420 [facility] 276 [place], [place] [phone] documented as of this encounter Visit Diagnoses Not on filedocumented in this encounter Additional Health Concerns Infection Onset Date Last Indicated Resolved Time Rule Out COVID-19 11/14/2024 11/14/2024 11/14/2024 8:25 PM LOOP MACHINE OPERATOR Assessment Noted Time PHQ-9 Depression Total Score: 0 09/18/19 12:46 PM LOOP MACHINE OPERATOR documented as of this encounter Care Teams Captain/Check Airman Relationship Specialty Start Date End Date Winston Villatoro OD [facility] [place] [address] [place] [address] PCP - Ophthalmology Ophthalmology 02/11/13 Denise Woodson APRN BAR MACHINE OPERATOR MULTIPLE SPINDLE [address] [place] [address] PCP - General Family Practice 09/21/20 Denise Woodson APRN BAR MACHINE OPERATOR MULTIPLE SPINDLE [address] [place] [address] Assigned PCP 07/17/20 Usha Simon APRN BAR MACHINE OPERATOR MULTIPLE SPINDLE [address] [place] [address] [id number] [place] [address] Nurse Practitioner Neurological Surgery 01/24/24 Dangelo Salinas MD [address] [place] [address] Neurology 01/27/24 Anastasia Stearns, RN Lead Bellmaker 02/06/24 12/17/24 Germaine Aleman, W Community Health Worker Primary Care - CC 02/18/2412/17/24 Joya Lira [facility] [address] [place] [address] Pharmacist Pharmacist 05/25/24 Joya Lira [facility] [address] [place] [address] Assigned MTM Pharmacist 06/08/24 Fabi Coates MD [address] [place] [address] 029475 Genetics, Clinical 06/18/24 Danna Cardenas PA-C [address] [place] [address] Assigned Heart and Vascular Provider 07/08/24 12/05/24 Arthur Salas, [facility] [address] [address] Assigned Behavioral Health Provider 08/08/24 Randy Maradiaga DO 9 [place], [place] 638065 Assigned Neuroscience Provider 08/08/24 Tete Wang MD [address] [place] [address] Genetics, Clinical 10/30/24 Dahlia Joyce MD [address] [place] [address] Radiology Neuroradiology 11/17/24 Lisa Zambrano MD 6405 [facility] [address] [place] [address] Assigned Heart and Vascular Provider 12/06/24 Tete Wang MD 2450 [place], [place] 677574 Assigned Pediatric Specialist Provider 01/06/25 Any Joiner MD [address] [place] [address] 276 [place], [place] 980695 Assigned Pulmonology Provider 02/05/25 documented as of this encounter
--- OUTSIDE RECORDS SUMMARY | 2025-03-09 12:21 | XMS_ITS | Encounter Summary ---
Author Organization [facility] Address [address] [place] [address] Care Team Providers Care Radar Repairer Name Role Phone Winston Villatoro OD Unavailable +[phone] Denise Woodson APRN COMMODITY MANAGER Unavailable +[phone] Denise Woodson APRN COMMODITY MANAGER Primary Care Provider Usha Simon APRN COMMODITY MANAGER Unavailable + [phone] Dangelo Salinas MD Unavailable Anastasai Stearns RN Unavailable Germaine Aleman CHW Unavailable +[phone] Joya Lira RP Unavailable +[phone] Joya Lira RP Unavailable Fabi Coates MD Unavailable +[phone] Danna CardenasC Unavailable +[phone] SinanselmoledyArthur BUS INFO CONSULTANT Unavailable +[phone] Randy Maradiaga DO Unavailable + Tete Wang MD Unavailable +[phone] Dahlia Joyce MD Unavailable +[phone] Lisa Zambrano MD Unavailable + [phone] Tete Wang MD Unavailable +[phone] Any Joiner MD Unavailable Encounter Details Date Type Department Care Team (Late st Contact Info) Description 10/21/2024 MyC Medical Advice [facility] Neurology Clinic [address] [place] [address] Randy Maradiaga DO [address] [place] [address] Social History Tobacco Use Types Packs/Day [...] How often do you attend anabaptist or episcopalian serv ices? Never 09/16/2024 Do [...] Answer Date Recorded PHQ-2 Score 0 09/29/2024 [facility] of Occupat ional Health [...] on file Legal Sex Female 4:05 AM CREDIT OPERATIONS PROCESSOR Gender Identity Not on file Sexual [...] Description 03/16/2025 8:00 AM CDT Virtual Visit [facility] [address] [phone] Bindu Bueno, OD 909 [place], [place] 199245 Rubi Johnson, OT [address] [address] 03/26/2025 12:45 PM CD[facility] [address] [phone] Bindu Bueno, OD 909 [place], [place] 0[address]45 Rubi Johnson, OT [address] 325427 04/02/2025 9:30 AM CDT Therapy Visit [address] [phone] Randy Maradiaga, DO 909 [place] [address] Delicia George, PT 150 [facility] [place] [address] 04/06/2025 11:00 AM CDT Virtual Visit [address] [phone] Bnidu Bueno, OD 909 [place] [address] Rubi Johnson, OT [address] [address] 04/06/2025 12:30 PM CDT Therapy Visit [address] [phone] Randy Maradiaga, DO 909 [place] [address] Delicia George, PT 150 [place] [address] 04/16/2025 11:00 AM CDT Therapy Visit [address] [phone] BuenoBindu flores, OD 909 [place] [address] Rubi Johnson, OT [address] [address] 04/23/2025 12:45 PM CDT Therapy Visit [facility] 150 [place] [address] Bindu Bueno, OD 909 [place] [address] Rubi Johnson, OT [address] [address] 04/23/2025 2:00 PM CDT Therapy Visit [facility] 150 [place] [phone] Randy Maradiaga, DO [address] [place] [address] Delicia George, PT 150 [facility] [place] [address] 04/30/2025 10:15 AM CDT Therapy Visit [address] [phone] Randy Maradiaga, DO [address] [place] [address] Delicia George, PT 150 [place] [address] 05/04/2025 11:00 AM CDT Virtual Visit [address] [phone] Bindu Bueno, OD 909 [place] [address] Rubi Johnson, [address] [address] 05/07/2025 10:15 AM CDT Therapy Visit [address] [phone] Randy Maradiaga, DO [address] [place] [address] 730535 Delicia George, PT 150 [facility] [place] [address] 05/14/2025 10:15 AM CDT Therapy Visit [address] [phone] Randy Maradiaga, [address] [place] [address] Delicia George, PT 150 [facility] [place] [address] 05/14/2025 11:00 AM CDT Therapy Visit [address] [phone] Bindu Bueno, OD [address] [place] [address] 046305 Rubi Johnson, OT [address] [address] 06/01/2025 11:15 AM CDT Appointment [facility] Imaging [address] [place] [phone] Robin Zepeda MD [address] [place] [address] 06/02/2025 2:20 PM CDT Virtual Visit [facility] Neurosurgery Clinic [address] 3rd [place] [phone] Robin Zepeda MD [address] [place] [address] 7[address]25 07/01/2025 12:00 PM CDT Virtual Visit [facility] Physical Medicine and Rehabilitation Clinic [address] 3rd [place] [phone] Santa Menon PA-C [address] [place] [address] 043085 08/03/2025 4:30 PM CREDIT OPERATIONS PROCESSOR Virtual Visit [facility] [address] [phone] Any Joiner MD 420 [facility] 276 [place] [address] documented as of this encounter Visit Diagnoses Not on filedocumented in this encounter Additional Health Concerns Infection Onset Date Last Indicated Resolved Time Rule Out COVID-19 11/14/2024 11/14/2024 11/14/2024 8:25 PM CREDIT OPERATIONS PROCESSOR Assessment Noted Time PHQ-9 Depression Total Score: 0 09/18/19 12:46 PM CREDIT OPERATIONS PROCESSOR documented as of this encounter Care Teams Radar Repairer Relationship Specialty Start Date End Date Winston Villatoro OD [facility] 701 [facility] [address] [place] [address] PCP - Ophthalmology Ophthalmology 02/11/13 Denise Woodson APRN COMMODITY MANAGER [address] [place] [address] PCP - General Family Practice 09/21/20 Denise Woodson APRN COMMODITY MANAGER [address] [place] [address] Assigned PCP 07/17/20 Usha Simon APRN COMMODITY MANAGER [address] [place] [address] [id number] [place], [place] 127225 Nurse Practitioner Neurological Surgery 01/24/24 Dangelo Salinas MD [address] [facility] [address] [id number] Neurology 01/27/24 Anastasia Stearns, RN Lead Casino Assistant Manager 02/06/24 12/17/24 Germaine Aleman, W Community Health Worker Primary Care - CC 02/18/2412/17/24 Joya Lira [facility] [address] [place], [place] [phone] Pharmacist Pharmacist 05/25/24 Joya Lira [facility] [address] [address] Assigned MTM Pharmacist 06/08/24 Fabi Coates MD [address] [place] [address] 75 [place], [place] 653405 Genetics, Clinical 06/18/24 Danna Cardenas PA-C [address] [place] [address] Assigned Heart and Vascular Provider 07/08/24 12/05/24 Arthur Salas, BUS INFO CONSULTANT [address] [address] Assigned Behavioral Health Provider 08/08/24 Randy Maradiaga DO 909 [place], [place] 870735 Assigned Neuroscience Provider 08/08/24 Tete Wang MD 2450 [place], [place] 159174 Genetics, Clinical 10/30/24 Dahlia Joyce MD [address] [place] [address] 539345 Radiology Neuroradiology 11/17/24 Lisa Zambrano MD 6405 [facility] [address] [place], [place] 020015 Assigned Heart and Vascular Provider 12/06/24 Tete Wang MD [facility]0 [place], [place] 411864 Assigned Pediatric Specialist Provider 01/06/25 Any Joiner MD 420 [facility] 276 [place], [place] 59[address] Assigned Pulmonology Provider 02/05/25 documented as of this encounter
--- OUTSIDE RECORDS SUMMARY | 2025-03-09 12:21 | XMS_ITS | Encounter Summary ---
Author Organization [place] Address [address] [place] [address] Care Team Providers Care Labor Commissioner Name Role Phone Winston Villatoro OD Unavailable [phone] Denise Woodson APRN MARKING STITCHER Unavailable [phone] Denise Woodson APRN MARKING STITCHER Primary Care Provider Usha Simon APRN MARKING STITCHER Unavailable + [phone] Dangelo Salinas MD Unavailable Anastasia Stearns RN Unavailable +[phone] Germaine Aleman CHW Unavailable +[phone] Joya Lira RP Unavailable [phone] Joya Lira RP Unavailable Fabi Coates MD Unavailable [phone] Danna CardenasC Unavailable +[phone] SinanselmoledyArthur TOP IRONER Unavailable [phone] Randy Maradiaga DO Unavailable + Tete Wang MD Unavailable +[phone] Dahlia Joyce MD Unavailable +[phone] Lisa Zambrano MD Unavailable + [phone] Tete Wang MD Unavailable +[phone] Any Joiner MD Unavailable Encounter Details Date Type Department Care Team (Late st Contact Info) Description 11/24/2024 MyC Medical Advice [facility] [address] [place] [phone] Denise Woodson APRN [facility] [address] [place] [address] Social History Tobacco Use Types [...] How often do you attend taoist or restorationism serv ices? 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 Note: Forms have not been received yet. Anastasia Gross [facility] documented in this encounter Plan of Treatment Upcoming Encounters Date Type Department Care Team (Late st Contact Info) Description 03/16/2025 8:00 AM CDT Virtual Visit [address] [phone] BuenoMagaliBindu, OD 909 [place], [place] 993175 Rubi Johnson, OT [address] [address] 03/26/2025 12:45 PM CDT Therapy Visit [address] [phone] Bindu Bueno, OD 909 [place], [place] 112645 Rubi Johnson, OT [address] [address] 04/02/2025 9:30 AM CDT Therapy Visit [address] [phone] Randy Maradiaga, DO 909 [place] [address] Delicia George, PT 150 [place] [address] 04/06/2025 11:00 AM CDT [facility] 150 [place] [phone] Bindu Bueno, OD 909 [place], [place] 532265 Rubi Johnson, OT [address] 211837 04/06/2025 12:30 PM CDT Therapy Visit [address] [phone] Randy Maradiaga, DO 909 [place] [address] Delicia George, PT 150 [place] [address] 04/16/2025 11:00 AM CDT Therapy Visit [address] [phone] Bindu Bueno, OD 909 [place] [address] Rubi Johnson, OT [address] 964127 04/23/2025 12:45 PM CDT Therapy Visit [address] [phone] Bindu Bueno, OD 909 [place] [address] Rubi Johnson, OT [address] [address] 04/23/2025 2:00 PM CDT Therapy Visit [address] [phone] Randy Maradiaga, DO [address] [place] [address] Delicia George, PT 150 [place] [address] 04/30/2025 10:15 AM CDT Therapy Visit [address] [phone] Randy Maradiaga, DO [address] [place] [address] Delicia George, PT 150 [facility] [address] 05/04/2025 11:00 AM CDT Virtual Visit [address] [phone] Bindu Bueno, OD 909 [place] [address] Rubi Johnson, OT [address] [address] 05/07/2025 10:15 AM CDT Therapy Visit [facility] 150 [place] [phone] Randy Maradiaga, DO 909 [place] [address] Delicia George, PT 150 [facility] [place] [address] 05/14/2025 10:15 AM CDT Therapy Visit [address] [phone] Randy Maradiaga, DO 909 [place] [address] Delicia George, PT 150 [facility] [place] [address] 05/14/2025 11:00 AM CDT Therapy Visit [address] [phone] Bindu Bueno, OD 909 [place] [address] Rubi Johnson, [address] [address] 06/01/2025 11:15 AM CDT Appointment [facility] Specialty Care Center Imaging [address] [place] [phone] Robin Zepeda MD 909 [facility] [id number] [place] [address] 06/02/2025 2:20 PM CDT Virtual Visit [facility] Neuro[facility] [address]rd [place] [phone] Robin Zepeda MD [address] [place] [address] [id number] [place], [place] 761175 07/01/2025 12:00 PM CDT Virtual Visit [facility] Rehabilitation [facility] [address] [phone] Santa Menon, PA-C [address] [place] [address] 572115 08/03/2025 4:30 PM TRAFFIC REPRESENTATIVE Virtual Visit [facility] [address] [phone] Any Joiner MD [address] [place] [address] 276 [place], [place] 217625 documented as of this encounter Visit Diagnoses Not on filedocumented in this encounter Additional Health Concerns Assessment Noted Time PHQ-9 Depression Total Score: 0 09/18/19 25 12:46 PM TRAFFIC REPRESENTATIVE documented as of this encounter Care Teams Labor Commissioner Relationship Specialty Start Date End Date Winston Villatoro, [facility] [place] [address] [place] [address] PCP - Ophthalmology Ophthalmology 02/11/13 Denise Woodson APRN MARKING STITCHER [address] [address] [address] PCP - General Family Practice 09/21/20 Denise Woodson APRN MARKING STITCHER [address] [address] [address] Assigned PCP 07/17/20 Usha Simon APRN MARKING STITCHER 909 [facility], [place] 905495 Nurse Practitioner Neurological Surgery 01/24/24 Dangelo Salinas MD [address] [place] [address] [place], [place] [phone] Neurology 01/27/24 Anastasia Stearns, RN Lead Compressor Operator Adjuster 02/06/24 12/17/24 Germaine Aleman, W Community Health Worker Primary Care - CC 02/18/2412/17/24 Joya Lira [facility] [address] [place] [address] Pharmacist Pharmacist 05/25/24 Joya Lira [facility] [address] [place] [address] Assigned MTM Pharmacist 06/08/24 Fabi Coates MD [address] [place] [address] 75 [place], [place] 143805 Genetics, Clinical 06/18/24 Danna Cardenas PA-C 6405 [place] [address] Assigned Heart and Vascular Provider 07/08/24 12/05/24 Arthur Salas LICSW [address] [place] [address] Assigned Behavioral Health Provider 08/08/24 Randy Maradiaga DO [address] [place] [address] 840715 Assigned Neuroscience Provider 08/08/24 Tete Wang MD [address] [place] [address] 914964 Genetics, Clinical 10/30/24 Dahlia Joyce MD [address] [place] [address] 939585 Radiology Neuroradiology 11/17/24 Lisa Zambrano MD 6405 [facility] [address] [place], [place] 916045 Assigned Heart and Vascular Provider 12/06/24 Tete Wang MD [address] [place] [address] 25909454 Assigned Pediatric Specialist Provider 01/06/25 Any Joiner MD [address] [place] [address] 276 [place], [place] [phone] Assigned Pulmonology Provider 02/05/25 documented as of this encounter
--- OUTSIDE RECORDS SUMMARY | 2025-03-09 12:21 | XMS_ITS | Encounter Summary ---
Author Organization [place] Address [address] [place] [address] Care Team Providers Care Multi Slide Machine Tender Name Role Phone Winston Villatoro OD Unavailable [phone] Denise Woodson APRN NURSERY LABORER Unavailable +[phone] Denise Woodson APRN NURSERY LABORER Primary Care Provider Usha Simon APRN NURSERY LABORER Unavailable + [phone] Dangelo Salinas MD Unavailable Anastasia Stearns RN Unavailable Germaine Aleman CHW Unavailable +[phone] Joya Lira RP Unavailable +[phone] Joya Lira RP Unavailable +[phone] Fabi Coates MD Unavailable [phone] Danna CardenasC Unavailable +[phone] SinanselmoledyArthur HAM PUMPER Unavailable +[phone] Meche Lombardi DO Unavailable + Tete Wang MD Unavailable +[phone] Dahlia Joyce MD Unavailable +[phone] Lisa Zambrano MD Unavailable + [phone] Tete Wang MD Unavailable +[phone] Any Joiner MD Unavailable Reason for Visit * Reason Onset Date Comments Appointment 11/16/2024 Encounter Details Date Type Department Care Team (Late st Contact Info) Description 11/16/2024 Telephone [facility] Audiology [address] 4th [place] [address] Unknown Appointment Social History Tobacco Use Types Packs/Day Years [...] Never 09/16/2024 How often do you attend jew or jew serv ices? 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 Thank you Action Taken: Message routed to: [facility] AUDIO Travel Screening: Not Applicable Date of Service: GING INSPECTOR documented in this encounter Plan of Treatment Upcoming Encounters Date Type Department Care Team (Late st Contact Info) Description 03/16/2025 8:00 AM CDT Virtual Visit [address] [phone] Magali Buenoissa, OD 909 [place], [place] 200585 Rubi Johnson, OT [address] [address] 03/26/2025 12:45 PM CDT Therapy Visit [address] [phone] [facility], OD 909 [place], [place] 544595 Rubi Johnson, OT [address] [address] 04/02/2025 9:30 AM CDT Therapy Visit [address] [phone] Meche Lombardi, DO [address] [place] [address] Delicia George, PT 150 [place] [address] 04/06/2025 11:00 AM CDT Virtual Visit [address] [phone] BuenoBindu flores, OD 909 [place], [place] 843475 Rubi Johnson, OT [facility] [address] 887997 04/06/2025 12:30 PM CDT Therapy Visit [address] [phone] Meche Lombardi, DO [address] [place] [address] Delicia George, PT 150 [place] [address] 04/16/2025 11:00 AM CDT Therapy Visit [address] [phone] Bindu Bueno, OD 909 [place] [address] Rubi Johnson, OT [address] 117[address] 04/23/2025 12:45 PM CDT Therapy Visit [address] [phone] Bindu Bueno, OD 909 [place] [address] Rubi Johnson, OT [address] [address] 04/23/2025 2:00 PM CDT Therapy Visit [address] [phone] Meche Lombardi, DO [address] [place] [address] Delicia George, PT 150 [place] [address] 04/30/2025 10:15 AM CDT Therapy Visit [address] [phone] Meche Lombardi, DO [address] [place] [address] Delicia George, PT 150 [place] [address] 05/04/2025 11:00 AM CDT Virtual Visit [address] [phone] BuenoBindu flores, OD 909 [place] [address] Rubi Johnson, OT [facility] [address] 876927 05/07/2025 10:15 AM CDT Therapy Visit [address] [phone] Meche Lombardi, DO [address] [place] [address] Delicia George, PT 150 [place] [address] 05/14/2025 10:15 AM CDT Therapy Visit [address] [phone] Meche Lombardi, DO 909 [place] [address] Delicia George, PT 150 [facility] [place] [address] 05/14/2025 11:00 AM CDT Therapy Visit [address] [phone] Bindu Bueno, OD 909 [place] [address] Rubi Johnson, OT [address] [address] 06/01/2025 11:15 AM CDT Appointment [facility] Imaging [address] [facility] [address] [place] [phone] Robin Zepeda MD [address] [place], [place] [address]4621CJ [place], [place] 913405 06/02/2025 2:20 PM CDT Virtual Visit [facility] Neurosurgery Clinic [address] [phone] Robin Zepeda MD [address] [place] [address] 07/01/2025 12:00 PM CDT Virtual Visit [facility] Physical Medicine and Rehabilitation Clinic [address] [phone] Santa Menon, PA-C [address] [place] [address] 609055 08/03/2025 4:30 PM DREDGING INSPECTOR Virtual Visit [facility] [address] [phone] Any Joiner MD [address] [place] [address] 276 [place], [place] 861275 documented as of this encounter Visit Diagnoses Not on filedocumented in this encounter Additional Health Concerns Assessment Noted Time PHQ-9 Depression Total Score: 0 09/18/19 12:46 PM DREDGING INSPECTOR documented as of this encounter Care Teams Multi Slide Machine Tender Relationship Specialty Start Date End Date Winston Villatoro OD [facility] [place] [address] [place] [id number] PCP - Ophthalmology Ophthalmology 02/11/13 Denise Woodson APRN NURSERY LABORER [address] [place] [id number] PCP - General Family Practice 09/21/20 Denise Woodson APRN NURSERY LABORER [address] [facility] [place] [address] Assigned PCP 07/17/20 Usha Simon APRN NURSERY LABORER 909 [facility] [place]8614[place], [place] 120[address] Nurse Practitioner Neurological Surgery 01/24/24 Dangelo Salinas MD [address] [facility] [address] [id number] Neurology 01/27/24 Anastasia Stearns, RN Lead Coremaker Supervisor 02/06/24 12/17/24 Germaine Aleman, [facility] Community Health Worker Primary Care - CC 02/18/2412/17/24 Joya Lira [facility] [address] [place], [place] [phone] Pharmacist Pharmacist 05/25/24 Joya Lira [facility] [address] [place], [place] [phone] Assigned MTM Pharmacist 06/08/24 Fabi Coates MD 420 [facility] 75 [place], [place] 547375 Genetics, Clinical 06/18/24 Danna Cardenas PA-C 6405 [place], [place] 676855 Assigned Heart and Vascular Provider 07/08/24 12/05/24 Arthur Salas, [facility] [address] [place] [address] Assigned Behavioral Health Provider 08/08/24 Meche Lombardi DO 909 [place], [place] 922485 Assigned Neuroscience Provider 08/08/24 Tete Wang MD [address] [place] [address] 608084 Genetics, Clinical 10/30/24 Dahlia Joyce MD [address] [place] [address] 614955 Radiology Neuroradiology 11/17/24 Lisa Zambrano MD 6405 [facility] [address] [place], [place] 411295 Assigned Heart and Vascular Provider 12/06/24 Tete Wang MD [address] [place] [address] 883864 Assigned Pediatric Specialist Provider 01/06/25 Any Joiner MD [address] [place] [address] 534895 Assigned Pulmonology Provider 02/05/25 documented as of this encounter
--- OUTSIDE RECORDS SUMMARY | 2025-03-09 12:21 | XMS_ITS | Encounter Summary ---
Author Organization [place] Address [address] [place] [address] Care Team Providers Care Interlocking Machine Operator Name Role Phone Winston Villatoro OD Unavailable [phone] Denise Woodson APRN PATTERN CHANGER Unavailable +[phone] Denise Woodson APRN PATTERN CHANGER Primary Care Provider Usha Simon APRN PATTERN CHANGER Unavailable + [phone] Dangelo Salinas MD Unavailable Anastasia Stearns RN Unavailable Germaine Aleman CHW Unavailable +[phone] Joya Lira RP Unavailable [phone] Joya Lira RP Unavailable Fabi Coates MD Unavailable [phone] Danna CardenasC Unavailable +[phone] SinanselmoledyArtuhr TAILOR HELPER Unavailable +[phone] Randy Maradiaga DO Unavailable + Tete Wang MD Unavailable +[phone] Dahlia Joyce MD Unavailable +[phone] Lisa Zambrano MD Unavailable + [phone] Tete Wang MD Unavailable [phone] Any Joiner MD Unavailable Encounter Details Date Type Department Care Team (Late st Contact Info) Description 11/20/2024 MyC Medical Advice [facility] Neurology [address], [address] [place] [address] Dahlia Joyce MD [address] [place] [address] Social History Tobacco Use Types Packs/Day [...] How often do you attend orthodox or presybeterian serv ices? Never 09/16/2024 Do [...] Answer Date Recorded PHQ-2 Score 0 11/13/2024 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 Not on file Not on file Not on file Not on file Not on file Not on file documented as of this encounter Plan of Treatment Upcoming Encounters Date Type Department Care Team (Late st Contact Info) Description 03/16/2025 8:00 AM CDT [facility] [address] [place] [phone] Bindu Bueno, OD 909 [place] [address] Rubi Johnson, OT [address] [address] 03/26/2025 12:45 PM CDT Therapy Visit [address] [phone] Bindu Bueno, OD 909 [place] [address] Rubi Johnson, OT [address] [address] 04/02/2025 9:30 AM CDT Therapy Visit [address] [phone] Randy Maradiaga, DO 909 [place] [address] Delicia George, PT 150 [place], [place] 98[address] 04/06/2025 11:00 AM CDT Virtual Visit [address] [phone] Bindu Bueno, OD 909 [place] [address] Rubi Johnson, OT [address] [address] 04/06/2025 12:30 PM CDT Therapy Visit [address] [phone] Randy Maradiaga, DO 909 [place] [address] Delicia George, PT 150 [facility] [place] [address] 04/16/2025 11:00 AM CDT Therapy Visit [address] [phone] Bindu Bueno, OD 909 [place] [address] Rubi Johnson, OT [address] [address] 04/23/2025 12:45 PM CDT Therapy Visit [facility] 150 [place] [phone] Bindu Bueno, OD 909 [place] [address] Rubi Johnson, OT [address] [address] 04/23/2025 2:00 PM CDT Therapy Visit [address] [phone] Randy Maradiaga, DO [address] [place] [address] Delicia George, PT 150 [facility] [address] 04/30/2025 10:15 AM CDT Therapy Visit [address] [phone] Randy Maradiaga, DO [address] [place] [address] Delicia George, PT 150 [place] [address] 05/04/2025 11:00 AM CDT Virtual Visit [address] [phone] Bindu Bueno, OD 909 [place] [address] Rubi Johnson, OT [address] [address] 05/07/2025 10:15 AM CDT Therapy Visit [address] [phone] Randy Maradiaga, DO [address] [place] [address] 901705 Delicia George, PT 150 [facility] [place] [address] 05/14/2025 10:15 AM CDT Therapy Visit [address] [phone] Randy Maradiaga DO [address] [place] [address] Delicia George, PT [address] [place] [address] 05/14/2025 11:00 AM CDT Therapy Visit [address] [phone] Bindu Bueno, OD [address] [place] [place] [address] 9070[address] Rubi Johnson, [address] [address] 06/01/2025 11:15 AM CDT Appointment [facility] [address] [facility] [address] [place] [phone] Robin Zepeda MD [address] [place] [address] 06/02/2025 2:20 PM CDT Virtual Visit [facility] Neurosurgery Clinic [address] 3rd [place] [phone] Robin Zepeda MD [address] [place] [address] 037525 07/01/2025 12:00 PM CDT Virtual Visit [facility] Physical Medicine and Rehabilitation Clinic [address] 3rd [place] [address] [place] [facility] [address] [place] [address] 08/03/2025 4:30 PM VAULT WORKER Virtual Visit [facility] [address] [phone] Any Joiner MD 420 [facility] 276 [place], [place] [phone] documented as of this encounter Visit Diagnoses Not on filedocumented in this encounter Additional Health Concerns Assessment Noted Time PHQ-9 Depression Total Score: 0 09/18/19 25 12:46 PM VAULT WORKER documented as of this encounter Care Teams Interlocking Machine Operator Relationship Specialty Start Date End Date Winston Villatoro OD [facility] [place] [address] [place] [address] PCP - Ophthalmology Ophthalmology 02/11/13 Denise Woodson APRN PATTERN CHANGER [address] [place] [address] PCP - General Family Practice 09/21/20 Denise Woodson APRN PATTERN CHANGER [address] [place] [address] Assigned PCP 07/17/20 Usha iSmon APRN PATTERN CHANGER [address] [place] [address] [id number] [place] [address] Nurse Practitioner Neurological Surgery 01/24/24 Dangelo Salinas MD [address] [place] [address] Neurology 01/27/24 Anastasia Stearns, RN Lead Ventilating Engineer 02/06/24 12/17/24 Germaine Aleman, W Community Health Worker Primary Care - CC 02/18/2412/17/24 Joya Lira [facility] [address] [place] [address] Pharmacist Pharmacist 05/25/24 Joya Lira [facility] [address] [address] Assigned MTM Pharmacist 06/08/24 Fabi Coates MD [address] [place] [address] [id number] Genetics, Clinical 06/18/24 Danna Cardenas PA-C [address] [place] [address] Assigned Heart and Vascular Provider 07/08/24 12/05/24 Arthur Salas, [facility] [address] [address] Assigned Behavioral Health Provider 08/08/24 Randy Maradiaga DO [address] [place] [address] Assigned Neuroscience Provider 08/08/24 Tete Wang MD [address] [place] [address] 324184 Genetics, Clinical 10/30/24 Dahlia Joyce MD 909 [place], [place] 310265 Radiology Neuroradiology 11/17/24 Lisa Zambrano MD 6405 [facility] [address] [place] [address] Assigned Heart and Vascular Provider 12/06/24 Tete Wang MD 2450 [place], [place] 741264 Assigned Pediatric Specialist Provider 01/06/25 Any Joiner MD [address] [place] [address] 276 [place], [place] [phone] Assigned Pulmonology Provider 02/05/25 documented as of this encounter
--- OUTSIDE RECORDS SUMMARY | 2025-03-09 12:22 | XMS_ITS | Encounter Summary ---
Author Organization [place] Address [address] [place] [address] Care Team Providers Care Tree Worker Name Role Phone Timmy Perez MD Unavailable Unavailable Yung Madrigal MD Unavailable Unavailable Winston Villatoro OD Unavailable [phone] Apple Sykes MD Primary Care Provider Unavailab Westley Vera MD Unavailable [phone] GeorginaAlessandra Gómez APRN AUTOMOBILE AND PROPERTY UNDERWRITER Primary Car e Provider Serum, Clara Garland MD Primary Care Provider Serum, Clara Garland MD Unavailable +[phone] Serum, Clara Garland MD Unavailable [phone] Denise Woodson APRN AUTOMOBILE AND PROPERTY UNDERWRITER Unavailable [phone] Denise Woodson APRN AUTOMOBILE AND PROPERTY UNDERWRITER Primary Care Provider Usha Simon APRN AUTOMOBILE AND PROPERTY UNDERWRITER Unavailable + [phone] Dangelo Salinas MD Unavailable Usha Simon APRN AUTOMOBILE AND PROPERTY UNDERWRITER Unavailable + [phone] Anastasia Stearns RN Unavailable +[phone] Germaine Aleman CHW Unavailable +[phone] Robin Zepeda MD Unavailable +[phone] Lisa Zambrano MD Unavailable + [phone] Raul Hoyos MD Unavailable SorayaJoya [facility] Unavailable +[phone] SorayaJoya [facility] Unavailable +[phone] Fabi Coates MD Unavailable [phone] DuaneRobin MD Unavailable [phone] Danna Cardenas PA-C Unavailable +[phone] Felicita Desai RN Unavailable Unavailab gabino Arthur SalasSW Unavailable +[phone] Randy Maradiaga DO Unavailable + Tete Wang MD Unavailable [phone] Dahlia Joyce MD Unavailable [phone] Lisa Zambrano MD Unavailable + [phone] Tete Wang MD Unavailable +[phone] Any Joiner MD Unavailable [phone] Encounter Details Date Type Department Care Team (Late st Contact Info) Description 05/26/[address] 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 documented as of this encounter Plan of Treatment Upcoming Encounters Date Type Department Care Team (Late st Contact Info) Description 03/16/2025 8:00 AM CDT Virtual Visit [address] [phone] Bindu Bueno, OD 909 [place], [place] [address] Rubi Johnson, OT [facility] [address] [place] [address] 03/26/2025 12:45 PM CDT Therapy Visit [facility] 150 [place] [phone] Bindu Bueno, OD 909 [place], [place] [address] Rubi Johnson, OT [address] [address] 04/02/2025 9:30 AM CDT Therapy Visit [address] [phone] Randy Maradiaga, DO 909 [place] [address] Delicia George, PT 150 [facility] [place] [address] 04/06/2025 11:00 AM CDT Virtual Visit [address] [phone] Bindu Bueno, OD 909 [place] [address] Rubi Johnson, OT [address] [address] 04/06/2025 12:30 PM CDT Therapy Visit [address] [phone] Randy Maradiaga, DO 909 [place] [address] Delicia George, PT 150 [place] [address] 04/16/2025 11:00 AM CDT Therapy Visit [address] [phone] MylesBindu, OD 909 [place], [place] 3290[address] Rubi Johnson, OT [facility] [address] [address] 04/23/2025 12:45 PM CDT Therapy Visit [address] [phone] MylesBindu, OD 909 [place], [place] 5[address]15 Rubi Johnson, OT [address] [address] 04/23/2025 2:00 PM CDT Therapy Visit [address] [phone] Randy Maradiaga, DO 909 [place], [place] 133265 Delicia George, PT 150 [facility] [place], [place] [address] 04/30/2025 10:15 AM CDT Therapy Visit [address] [phone] Randy Maradiaga, DO [address] [place] [address] Delicia George, PT 150 [facility] [place], [place] [address] 05/04/2025 11:00 AM CDT Virtual Visit [address] [phone] Bindu Bueno, OD 909 [place] [address] Rubi Johnson, [address] [address] 05/07/2025 10:15 AM CDT Therapy Visit [address] [phone] Randy Maradiaga, DO [address] [place] [address] 354665 Delicia George, PT 150 [place] [address] 05/14/2025 10:15 AM CDT Therapy Visit [address] [phone] Randy Maradiaga, DO [address] [place] [address] 837815 Delicia George, PT 150 [place] [address] 05/14/2025 11:00 AM CDT Therapy Visit [facility] [address] [phone] Bindu Bueno, OD 909 [place], [place] 3699[address] Rubi Johnson, [address] [address] 06/01/2025 11:15 AM CDT Appointment [facility] Imaging [address] [place] [phone] Robin Zepeda MD [address] [place] [address] 023785 06/02/2025 2:20 PM CDT Virtual Visit [facility] Neurosurgery Clinic [address] [phone] Robin Zepeda MD [address] [place] [address] 906895 07/01/2025 12:00 PM CDT Virtual Visit [facility] Physical Medicine and Rehabilitation Clinic [address] [phone] Santa [place], PA-C [address] [place] [address] 302825 08/03/2025 4:30 PM SEATER ASSEMBLER Virtual Visit [facility] [place] 909 [place] [phone] Any Joiner MD 420 [facility] 276 [place] [address] documented as of this encounter Visit Diagnoses Not on filedocumented in this encounter Additional Health Concerns Infection Onset Date Last Indicated Resolved Time Rule Out COVID-19 09/13/2024 09/13/2024 09/13/2024 12:31 PM SEATER ASSEMBLER Rule Out COVID-19 11/14/2024 11/14/2024 11/14/2024 8:25 PM SEATER ASSEMBLER documented as of this encounter Care Teams Tree Worker Relationship Specialty Start Date End Date Timmy Perez MD PCP - Obstetrics/Gynecology 03/02/08 08/07/15 Yung Madrigal MD RETIRED PCP - Orthopaedics Orthopedics 08/26/12 01/20/24 Winston Villatoro OD [facility] [place] [address] [place] [address] PCP - Ophthalmology Ophthalmology 02/11/13 Apple Sykes MD [facility] [place] [address] [place] [address] PCP - General Family Practice 05/04/13 10/25/16 Westley Bates MD XXX RETIRED XXX [address] [place] [address] PCP - ENT Otolaryngology 05/14/13 07/28/18 Georgina-Alessandra Gómez APRN AUTOMOBILE AND PROPERTY UNDERWRITER [address] [place] [address] [place] [address] PCP - General Nurse Practitioner 10/26/16 02/06/17 Clara Cornell MD [address] [facility] [place] [address] PCP - General Internal Medicine 02/07/17 09/20/20 Clara Cornell MD 8675 [place] [address] PCP - Assigned PCP 01/17/17 11/18/18 Denise Woodson APRN AUTOMOBILE AND PROPERTY UNDERWRITER [address] [place] [address] PCP - General Family Practice 09/21/20 Clara Cornell MD 8675 [place] [address] Assigned PCP 01/17/17 07/16/20 Denise Woodson APRN AUTOMOBILE AND PROPERTY UNDERWRITER [address] [place] [address] Assigned PCP 07/17/20 Usha Simon APRN AUTOMOBILE AND PROPERTY UNDERWRITER [address] [address]94[address] Nurse Practitioner Neurological Surgery 01/24/24 [place] [address] [place] [address] [id number] Neurology 01/27/24 Usha Simon APRN AUTOMOBILE AND PROPERTY UNDERWRITER [address] 898875 Assigned Neuroscience Provider 02/06/24 03/07/24 Anastasia Stearns, RN Lead Color Mixer 02/06/24 12/17/24 Germaine Aleman, W Community Health Worker Primary Care - CC 02/18/24 12/17/24 Robin Zepeda MD [address] [place] [address] Assigned Neuroscience Provider 03/08/24 05/07/24 Lisa Zambrano MD 6405 [facility] [address] [place] [address] Assigned Heart and Vascular Provider 05/08/24 07/07/24 Raul Hoyos MD [address] [place] [address] Assigned Neuroscience Provider 05/08/24 07/07/24 Joya Lira [facility] [address] [place] [address] Pharmacist Pharmacist 05/25/24 Joya Lira [facility] [address] [place] [address] Assigned MTM Pharmacist 06/08/24 Fabi Coates MD [address] [place] [address] 75 [place] [address] Genetics, Clinical 06/18/24 Robin Zepeda MD 9 [facility] [id number] [place] [address] Assigned Neuroscience Provider 07/08/24 08/07/24 Danna Cardenas PA-C 6405 [place] [address] Assigned Heart and Vascular Provider 07/08/24 12/05/24 Felicita Desai, RN Lead Color Mixer 07/14/24 07/28/24 Arthur Salas [facility] [address] [address] Assigned Behavioral Health Provider 08/08/24 Randy Maradiaga DO [address] [place] [address] Assigned Neuroscience Provider 08/08/24 Tete Wang MD [address] [place] [address] 668294 Genetics, Clinical 10/30/24 Dahlia Joyce MD [address] [place] [address] Radiology Neuroradiology 11/17/24 Lisa Zambrano MD 6405 [facility] [address] [place] [address] Assigned Heart and Vascular Provider 12/06/24 Tete Wang MD [address] [place] [address] Assigned Pediatric Specialist Provider 01/06/25 Any Joiner MD [address] [place] [address] Assigned Pulmonology Provider 02/05/25 documented as of this encounter
--- OUTSIDE RECORDS SUMMARY | 2025-03-09 12:22 | XMS_ITS | Encounter Summary ---
Author Organization [facility] Address [address] [place] [address] Care Team Providers Care Oil Analyst Name Role Phone Timmy Perez MD Unavailable Unavailable Yung Madrigal MD Unavailable Unavailable Winston Vilaltoro OD Unavailable [phone] Apple Sykes MD Primary Care Provider Unavailab Westley Vera MD Unavailable [phone] GeorginaAlessandra Gómez APRN RESEARCH ADVISOR Primary Car e Provider Serum, Clara Garland MD Primary Care Provider Serum, Clara Garland MD Unavailable +[phone] Serum, Clara Garland MD Unavailable Denise Woodson APRN RESEARCH ADVISOR Unavailable +[phone] Denise Woodson APRN RESEARCH ADVISOR Primary Care Provider Usha Simon APRN RESEARCH ADVISOR Unavailable + [phone] Dangelo Salinas MD Unavailable Usha Simon APRN RESEARCH ADVISOR Unavailable + [phone] Anastasia Stearns RN Unavailable +[phone] Germaine Aleman CHW Unavailable +[phone] Robin Zepeda MD Unavailable +[phone] Lisa Zambrano MD Unavailable + [phone] Raul Hoyos MD Unavailable SorayaJoya marsh [facility] Unavailable +[phone] SorayaJoya [facility] Unavailable [phone] Fabi Coates MD Unavailable [phone] DuaneRobin MD Unavailable [phone] Danna Cardenas PA-C Unavailable +[phone] Felicita Desai RN Unavailable Unavailab gabino Arthur SalasSW Unavailable +[phone] Randy Maradiaga DO Unavailable + Tete Wang MD Unavailable [phone] Dahlia Joyce MD Unavailable [phone] Lisa Zambrano MD Unavailable + [phone] Tete Wang MD Unavailable +[phone] Any Joiner MD Unavailable [phone] Encounter Details Date Type Department Care Team (Late st Contact Info) Description 05/19/2013 MyC Medical Advice [facility] [place] Orthopedics [address] [place] [phone] Yung Madrigal MD RETIRED Social History Tobacco Use Types Packs/Day Years Used Date Smoking Tobacco: Never Smokeless Tobacco: Never Alcohol Use Standard Drinks/Week Comments Yes 0 (1 standard drink = 0.6 oz pur e alcohol) minimal Comments No Sex and Gender Information Value Date Recorded Sex Assigned at Not on file Legal Sex Female 4:05 AM ANODE REBUILDER Gender Identity Not on file Sexual Orientation Not on file 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 documented as of this encounter Plan of Treatment Upcoming Encounters Date Type Department Care Team (Late st Contact Info) Description 03/16/2025 8:00 AM CDT Virtual Visit [address] [phone] Bindu Bueno, OD [address]09 [place], [place] 39[address] Rubi Johnson, OT [facility] [address] [place] [address] 03/26/2025 12:45 PM CDT Therapy Visit [facility] 150 [place] [phone] Bindu Bueno, OD [address] [place], [place] [address] Rubi Johnson, OT [address] [address] 04/02/2025 9:30 AM CDT Therapy Visit [address] [phone] Randy Maradiaga, DO 909 [place] [address] Delicia George, PT [address] [facility] [place] [address] 04/06/2025 11:00 AM CDT Virtual Visit [address] [phone] Bindu Bueno, OD 909 [place] [address] Rubi Johnson, OT [address] [address] 04/06/2025 12:30 PM CDT Therapy Visit [address] [phone] Randy Maradiaga, DO 909 [place] [address] Delicia George, PT 150 [place] [address] 04/16/2025 11:00 AM CDT Therapy Visit [address] [phone] MylesBindu, OD [address] [place], [place] [address] Rubi Johnson, OT [facility] [address] [address] 04/23/2025 12:45 PM CDT Therapy Visit [address] [phone] MylesBindu, OD [address] [place], [place] 35[address] Rubi Johnson, OT [address] [address] 04/23/2025 2:00 PM CDT Therapy Visit [address] [phone] Randy Maradiaga, DO 9[address] [place], [place] 27[address] Delicia George, PT 150 [facility] [place], [place] [address] 04/30/2025 10:15 AM CDT Therapy Visit [address] [phone] Randy Maradiaga, DO [address] [place] [address] Delicia George, PT 150 [facility] [address] 05/04/2025 11:00 AM CDT Virtual Visit [address] [phone] Bindu Bueno, OD [address] [place] [address] Rubi Johnson, [address] [address] 05/07/2025 10:15 AM CDT Therapy Visit [address] [phone] Randy Maradiaga, DO [address] [place] [address] 246135 Delicia George, PT 150 [place] [address] 05/14/2025 10:15 AM CDT Therapy Visit [address] [phone] Randy Maradiaga, DO [address] [place] [address] 286445 Delicia George, PT 150 [place] [address] 05/14/2025 11:00 AM CDT Therapy Visit [facility] [address] [phone] Bindu Bueno, OD [address] [place], [place] 47[address] Rubi Johnson, [address] [address] 06/01/2025 11:[address] [facility] Imaging [address] [place] [phone] Robin Zepeda MD [address] [place] [address] 076765 06/02/2025 2:20 PM CDT Virtual Visit [facility] [address] [phone] Robin Zepeda MD [address] [place] [address] 985475 07/01/2025 12:00 PM CDT Virtual Visit [facility] [address] [phone] Santa Menon, PA-C [address] [place] [address] 557915 08/03/2025 4:30 PM ANODE REBUILDER Virtual Visit [facility] Mentor 909 [place] [phone] Any Joiner MD 420 [facility] 276 [place] [address] documented as of this encounter Visit Diagnoses Not on filedocumented in this encounter Additional Health Concerns Infection Onset Date Last Indicated Resolved Time Rule Out COVID-19 09/13/2024 09/13/2024 09/13/2024 12:31 PM ANODE REBUILDER Rule Out COVID-19 11/14/2024 11/14/2024 11/14/2024 8:25 PM ANODE REBUILDER documented as of this encounter Care Teams Oil Analyst Relationship Specialty Start Date End Date Timmy Perez MD PCP - Obstetrics/Gynecology 03/02/08 08/07/15 Yung Madrigal MD RETIRED PCP - Orthopaedics Orthopedics 08/26/12 01/20/24 Winston Villatoro OD [facility] [place] [address] [place] [address] PCP - Ophthalmology Ophthalmology 02/11/13 Apple Sykes MD [facility] [place] [address] [place] [address] PCP - General Family Practice 05/04/13 10/25/16 Westley Bates MD XXX RETIRED XXX [address] [place] [address] PCP - ENT Otolaryngology 05/14/13 07/28/18 Georgina-Alessandra Gómez APRN RESEARCH ADVISOR [address] [place] [address] [place] [address] PCP - General Nurse Practitioner 10/26/16 02/06/17 Clara Cornell MD [address] [facility] [place] [address] PCP - General Internal Medicine 02/07/17 09/20/20 Clara Cornell MD 8675 [place] [address] PCP - Assigned PCP 01/17/17 11/18/18 Denise Woodson APRN RESEARCH ADVISOR [address] [place] [address] PCP - General Family Practice 09/21/20 Clara [place] MD [address]75 [place] [address] Assigned PCP 01/17/17 07/16/20 Denise Woodson APRN RESEARCH ADVISOR [address] [place] [address] Assigned PCP 07/17/20 Usha Simon APRN RESEARCH ADVISOR [address] 826895 Nurse Practitioner Neurological Surgery 01/24/24 [place] [address] [place] [address] [id number] Neurology 01/27/24 Usha Simon APRN RESEARCH ADVISOR [address] 985585 Assigned Neuroscience Provider 02/06/24 03/07/24 Anastasia Stearns, RN [place] Supervisor 02/06/24 12/17/24 Germaine Aleman, W Community Health Worker Primary Care - CC 02/18/24 12/17/24 Robin Zepeda MD [address] [place] [address] Assigned Neuroscience Provider 03/08/24 05/07/24 Lisa Zambrano MD [address] [facility] [address] [place] [address] Assigned Heart and Vascular Provider 05/08/24 07/07/24 Raul Hoyos MD [address] [place] [address] Assigned Neuroscience Provider 05/08/24 07/07/24 Joya Lira [facility] [address] [address] Pharmacist Pharmacist 05/25/24 Joya Lira [facility] [address] [place] [address] Assigned MTM Pharmacist 06/08/24 Fabi Coates MD [address] [place] [address] 75 [place] [address] Genetics, Clinical 06/18/24 Robin Zepeda MD 9 [facility] [id number] [place] [address] Assigned Neuroscience Provider 07/08/24 08/07/24 Danna Cardenas PA-C 6405 [place] [address] Assigned Heart and Vascular Provider 07/08/24 12/05/24 Felicita Desai, RN [place] Supervisor 07/14/24 07/28/24 Arthur Salas [facility] [address] [address] Assigned Behavioral Health Provider 08/08/24 Randy Maradiaga DO [address] [place] [address] Assigned Neuroscience Provider 08/08/24 Tete Wang MD [address] [place] [address] 796074 Genetics, Clinical 10/30/24 Dahlia Joyce MD [address] [place] [address] Radiology Neuroradiology 11/17/24 Lisa Zambrano MD [address] [facility] [address] [place] [address] Assigned Heart and Vascular Provider 12/06/24 Tete Wang MD [address] [place] [address] Assigned Pediatric Specialist Provider 01/06/25 Any Joiner MD [address] [place] [address] Assigned Pulmonology Provider 02/05/25 documented as of this encounter
--- OUTSIDE RECORDS SUMMARY | 2025-03-09 12:22 | XMS_ITS | Encounter Summary ---
Author Organization [facility] Address [address] [place] [address] Care Team Providers Care Region Manager Name Role Phone Yung Madrigal MD Unavailable Unavailable Winston Villatoro OD Unavailable [phone] Serum, Clara Garland MD Primary Care Provider Serum, Clara Garland MD Unavailable [phone] Denise Woodson APRN DRAWING OPERATOR Unavailable [phone] Denise Woodson APRN DRAWING OPERATOR Primary Care Provider Usha Simon SUPERINTENDENT STORAGE AREA DRAWING OPERATOR Unavailable Dangelo Salinas MD Unavailable Usha Simon SUPERINTENDENT STORAGE AREA DRAWING OPERATOR Unavailable Anastasia Stearns RN Unavailable [phone] Germaine Aleman CHW Unavailable [phone] Robin Zepeda MD Unavailable [phone] Lisa Zambrano MD Unavailable Raul Hoyos MD Unavailable Joya Lira [facility] Unavailable [phone] Joya Lira RP Unavailable +[phone] Fabi Coates MD Unavailable [phone] Robin Zepeda MD Unavailable [phone] Danna Cardenas PA-C Unavailable [phone] Felicita Desai RN Unavailable Unavailab Arthur Rios Unavailable +[phone] JefRandy oneill Unavailable + Tete Wang MD Unavailable [phone] Dahlia Joyce MD Unavailable [phone] Lisa Zambrano MD Unavailable + [phone] Tete Wang MD Unavailable [phone] Any Joiner MD Unavailable +[phone] Encounter Details Date Type Department Care Team (Late Contact Info) Description 01/21/2019 MyC Medical Advice [address] [place] [address] [facility] Social History Tobacco Use Types Packs/Day Years Used Date Smoking Tobacco: Never Smokeless Tobacco: Never Alcohol Use Standard Drinks/Week Comments Yes 0 (1 standard drink = 0.6 oz pur e alcohol) minimal PHQ-2 Answer Date Recorded PHQ-2 Score 0 09/23/2018 Comments No Sex and Gender Information Value Date Recorded Sex Assigned at Not on file Legal Sex Female 4:05 AM CANDLE MAKER Gender Identity Not on file Sexual Orientation Not on file 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 [address] [place] [address] Bindu Bueno, OD 909 [place], [place] 237725 Rubi Johnson, OT [facility] 150 [place] [address] 03/26/2025 12:45 PM CDT Therapy [facility] 150 [place] [phone] Bindu Bueno, OD 909 [place] [address] Rubi Johnson, OT [address] [address] 04/02/2025 9:30 AM CDT Therapy Visit [address] [phone] Randy Maradiaga, [address] [place] [address] Delicia George, PT 150 [facility] [place] [address] 04/06/2025 11:00 AM CDT Virtual Visit [address] [phone] BuenoBindu flores, OD 909 [place] [address] Rubi Johnson, OT [address] [address] 04/06/2025 12:30 PM CDT Therapy Visit [address] [phone] Randy Maradiaga, DO 909 [place] [address] Delicia George, PT 150 [place] [address] 04/16/2025 11:00 AM CDT Therapy Visit [address] [phone] Bindu Bueno, OD 909 [place] [address] Rubi Johnson, OT [address] [address] 04/23/2025 12:45 PM CDT Therapy Visit [address] [phone] Bindu Bueno, OD 909 [place] [address] Rubi Johnson, OT [address] [address] 04/23/2025 2:00 PM CDT Therapy Visit [address] [phone] Randy Maradiaga, DO [address] [place] [address] Delicia George, PT 150 [place] [address] 04/30/2025 10:15 AM CDT Therapy Visit [address] [phone] Randy Maradiaga, DO [address] [place] [address] Delicia George, PT 150 [place] [address] 05/04/2025 11:00 AM CDT Virtual Visit [address] [phone] Bindu Bueno, OD 909 [place] [address] Rubi Johnson, OT [address] [address] 05/07/2025 10:15 AM CDT Therapy Visit [address] [phone] Randy Maradiaga, DO [address] [place] [address] Delicia George, PT 150 [facility] [address] 05/14/2025 10:15 AM CDT Therapy Visit [address] [phone] Randy Maradiaga, DO [address] [place] [address] Delicia George, PT 150 [place] [address] 05/14/2025 11:00 AM CDT Therapy Visit [facility] [address] [phone] Bindu Bueno, OD 909 [place] [address] Rubi Johnson, OT [address] [address] 06/01/2025 11:15 AM CDT Appointment [facility] Imaging [address] [place] [phone] Robin Zepeda MD [address] [place] [address] 06/02/2025 2:20 PM CDT Virtual Visit [facility] [address] [phone] Robin Zepeda MD [address] [place] [address] 07/01/2025 12:00 PM CDT Virtual Visit [facility] Rehabilitation [address] [phone] Santa Menon PA-C [address] [place] [address] 185575 08/03/2025 4:30 PM CANDLE MAKER Virtual Visit [facility] [address] [phone] Any Joiner MD 420 [facility] 276 [place], [place] 9[address] documented as of this encounter Visit Diagnoses Not on filedocumented in this encounter Additional Health Concerns Infection Onset Date Last Indicated Resolved Time Rule Out COVID-19 09/13/2024 09/13/2024 09/13/2024 12:31 PM CANDLE MAKER Rule Out COVID-19 11/14/2024 11/14/2024 11/14/2024 8:25 PM CANDLE MAKER Assessment Noted Time PHQ-9 Depression Total Score: 0 02/09/20 17 7:29 AM CDT documented as of this encounter Care Teams Region Manager Relationship Specialty Start Date End Date Yung Madrigal MD RETIRED PCP - Orthopaedics Orthopedics 08/26/12 01/20/24 Winston Villatoro OD [facility] [place] [address] [place] [address] PCP - Ophthalmology Ophthalmology 02/11/13 Clara Cornell MD [facility] [place] [address] [place] [address] PCP - General Internal Medicine 02/07/17 09/20/20 Denise Woodson APRN DRAWING OPERATOR [address] [place] [address] PCP - General Family Practice 09/21/20 Clara [place] MD 8675 [place] [address] Assigned PCP 01/17/17 07/16/20 Denise Woodson APRN DRAWING OPERATOR [address] [place] [place] [address] Assigned PCP 07/17/20 Usha Simon APRN DRAWING OPERATOR [address] [place] [address] Nurse Practitioner Neurological Surgery 01/24/24 Dangelo Salinas MD [address] [place], [place] [id number] Neurology 01/27/24 Usha Simon APRN DRAWING OPERATOR [address] [place] [address] Assigned Neuroscience Provider 02/06/24 03/07/24 Anastasia Stearns, RN Lead Manager Audio 02/06/24 12/17/24 Germaine Aleman, W Community Health Worker Primary Care - CC 02/18/2412/17/24 Robin Zepeda MD [address] [place] [address] Assigned Neuroscience Provider 03/08/24 05/07/24 Lisa Zambrano MD [address] [place] [address] Assigned Heart and Vascular Provider 05/08/24 07/07/24 Raul Hoyos MD [address] [place] [address] Assigned Neuroscience Provider 05/08/24 07/07/24 [facility] [address] [place] [address] Pharmacist Pharmacist 05/25/24 Joya Lira [facility] [address] [place] [address] Assigned MTM Pharmacist 06/08/24 Fabi Coates MD [address] [place] [address] 75 [place] [address] Genetics, Clinical 06/18/24 Robin Zepeda MD 909 [facility]J [place] [address] Assigned Neuroscience Provider 07/08/24 08/07/24 Danna Cardenas PA-C [facility]5 [place] [address] Assigned Heart and Vascular Provider 07/08/24 12/05/24 Felicita Desai, RN Lead Manager Audio 07/14/24 07/28/24 Arthur Salas [facility] [address] [place] [address] Assigned Behavioral Health Provider 08/08/24 Randy Maradigaa DO 909 [place], [place] 122535 Assigned Neuroscience Provider 08/08/24 Tete Wang MD 2450 [place], [place] 580124 Genetics, Clinical 10/30/24 Dahlia Joyce MD 909 [place], [place] 347095 Radiology Neuroradiology 11/17/24 Lisa Zambrano MD 6405 [facility] [address] [place], [place] 0767[address] Assigned Heart and Vascular Provider 12/06/24 Tete Wang MD 2450 [place], [place] 512784 Assigned Pediatric Specialist Provider 01/06/25 Any Joiner MD 420 [facility] 276 [place], [place] 559965 Assigned Pulmonology Provider 02/05/25 documented as of this encounter
--- OUTSIDE RECORDS SUMMARY | 2025-03-09 12:22 | XMS_ITS | Encounter Summary ---
Author Organization [facility] Address [address] [place] [address] Care Team Providers Care Tomato Pulper Operator Name Role Phone Timmy Perez MD Unavailable Unavailable Yung Madrigal MD Unavailable Unavailable Winston Villatoro OD Unavailable [phone] Apple Sykes MD Primary Care Provider Unavailab Westley Vera MD Unavailable [phone] GeorginaAlessandra Gómez APRN ELECTRIC UTILITY LINEWORKER Primary Car e Provider Serum, Clara Garland MD Primary Care Provider Serum, Clara Garland MD Unavailable [phone] Serum, Clara Garland MD Unavailable Denise Woodson APRN ELECTRIC UTILITY LINEWORKER Unavailable [phone] Denise Woodson APRN ELECTRIC UTILITY LINEWORKER Primary Care Provider Usha Simon APRN ELECTRIC UTILITY LINEWORKER Unavailable + [phone] Dangelo Salinas MD Unavailable Usha Simon APRN ELECTRIC UTILITY LINEWORKER Unavailable + [phone] Anastasia Stearns RN Unavailable [phone] Germaine Aleman CHW Unavailable +[phone] Robin Zepeda MD Unavailable +[phone] Lisa Zambrano MD Unavailable + [phone] Raul Hoyos MD Unavailable Joya Lira [facility] Unavailable +[phone] SorayaJoya [facility] Unavailable [phone] Fabi Coates MD Unavailable [phone] DuaneRobin MD Unavailable +[phone] Danna Cardenas PA-C Unavailable +[phone] Felicita Desai RN Unavailable Unavailab gabino Arthur Salas CREDIT NEGOTIATOR Unavailable +[phone] Randy Maradiaga DO Unavailable + Tete Wang MD Unavailable [phone] Dahlia Joyce MD Unavailable [phone] Lisa Zambrano MD Unavailable + [phone] Tete Wang MD Unavailable +[phone] Any Joiner MD Unavailable +[phone] Encounter Details Date Type Department Care Team (Late st Contact Info) Description 05/06/2013 MyC Medical Advice [facility] in [address] [address] Apple Sykes MD Social History Tobacco Use Types Packs/Day Years Used Date Smoking Tobacco: Never Smokeless Tobacco: Never Alcohol Use Standard Drinks/Week Comments Yes 0 (1 standard drink = 0.6 oz pur e alcohol) minimal Comments No Sex and Gender Information Value Date Recorded Sex Assigned at Not on file Legal Sex Female 4:05 AM SYSTEMS MANAGER Gender Identity Not on file Sexual Orientation Not on file 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 documented as of this encounter Plan of Treatment Upcoming Encounters Date Type Department Care Team (Late st Contact Info) Description 03/16/2025 8:00 AM CDT Virtual Visit [address] [address] Bindu Bueno, OD 909 [place] [address] Rubi Johnson, OT [address] [address] 03/26/2025 12:45 PM CDT Therapy Visit [address] [phone] Bindu Bueno, OD [address] [place], [place] [address] Rubi Johnson, OT [address] [address] 04/02/2025 9:30 AM CDT Therapy Visit [address] [phone] Randy Maradiaga, DO 909 [place] [address] Delicia George, PT 150 [place] [address] 04/06/2025 11:00 AM CDT Virtual Visit [address] [phone] Bindu Bueno, OD 909 [place] [address] Rubi Johnson, OT [address] 292797 04/06/2025 12:30 PM CDT Therapy Visit [address] [phone] Randy Maradiaga, DO [address] [place] [address] Delicia George, PT 150 [place] [address] 04/16/2025 11:00 AM CDT Therapy Visit [address] [phone] Bindu Bueno, OD 909 [place] [address] Rubi Johnson, OT [address] [address] 04/23/2025 12:45 PM CDT Therapy Visit [address] [phone] Bindu Bueno, OD 909 [place] [address] Rubi Johnson, OT [address] [address] 04/23/2025 2:00 PM CDT Therapy Visit [address] [phone] Randy Maradiaga, DO 909 [place] [address] Delicia George, PT [address] [place], [place] [address] 04/30/2025 10:15 AM CDT Therapy Visit [address] [phone] Randy Maradiaga, DO [address] [place] [address] Delicia George, PT 150 [facility] [place] [address] 05/04/2025 11:00 AM CDT Virtual Visit [address] [phone] Bindu Bueno, OD 909 [place] [address] Rubi Johnson, OT [facility] [address] [address] 05/07/2025 10:15 AM CDT Therapy Visit [address] [phone] Randy Maradiaga, DO [address] [place] [address] 251975 Delicia George, PT 150 [place], [place] [address]807 05/14/2025 10:15 AM CDT Therapy Visit [address] [phone] Randy Maradiaga, DO [address] [place] [address] 445185 Delicia George, PT 150 [facility] [place] [address] 05/14/2025 11:00 AM CDT Therapy Visit [facility] [address] [phone] Bindu Bueno, OD 909 [place], [place] [address]27[address] Rubi Johnson, [address] [address] 06/01/2025 11:15 AM CDT Appointment [facility] [address] [place] [phone] Robin Zepeda MD [address] [place] [address] 06/02/2025 2:20 PM CDT Virtual Visit [facility] [address] [phone] Robin Zepeda MD [address] [place] [address] 008365 07/01/2025 12:00 PM CDT Virtual Visit [facility] [address] [phone] Santa Menon, PA-C [address] [place] [address] 302255 08/03/2025 4:30 PM SYSTEMS MANAGER Virtual Visit [facility] [address] [address] Any Joiner MD 420 [facility] 276 [place], [place] 6085[address] documented as of this encounter Visit Diagnoses Not on filedocumented in this encounter Additional Health Concerns Infection Onset Date Last Indicated Resolved Time Rule Out COVID-19 09/13/2024 09/13/2024 09/13/2024 12:31 PM SYSTEMS MANAGER Rule Out COVID-19 11/14/2024 11/14/2024 11/14/2024 8:25 PM SYSTEMS MANAGER documented as of this encounter Care Teams Tomato Pulper Operator Relationship Specialty Start Date End Date Timmy Perez MD PCP - Obstetrics/Gynecology 03/02/08 08/07/15 Yung Madrigal MD RETIRED PCP - Orthopaedics Orthopedics 08/26/12 01/20/24 Winston Villatoro, OD [facility] [place] [address] [place] [address] PCP - Ophthalmology Ophthalmology 02/11/13 Apple Sykes MD [facility] [place] [address] [place] [address] PCP - General Family Practice 05/04/13 10/25/16 Westley Bates MD XXX RETIRED XXX [address] [place] [address] PCP - ENT Otolaryngology 05/14/13 07/28/18 Alessandra Cabrales APRN ELECTRIC UTILITY LINEWORKER [address] [place] [address] [place] [address] PCP - General Nurse Practitioner 10/26/16 02/06/17 Clara Cornell MD [address] [facility] [place] [address] PCP - General Internal Medicine 02/07/17 09/20/20 Clara Cornell MD 8675 [place] [address] PCP - Assigned PCP 01/17/17 11/18/18 Denise Woodson APRN ELECTRIC UTILITY LINEWORKER [address] [place] [address] PCP - General Family Practice 09/21/20 Clara [place] MD [address] [place] [address] Assigned PCP 01/17/17 07/16/20 Denise Woodson APRN ELECTRIC UTILITY LINEWORKER [address] [place] [address] Assigned PCP 07/17/20 Usha Simon APRN ELECTRIC UTILITY LINEWORKER [address] 761135 Nurse Practitioner Neurological Surgery 01/24/24 [place] [address] [place] [address] Neurology 01/27/24 Usha Simon APRN ELECTRIC UTILITY LINEWORKER [address] [id number] Assigned Neuroscience Provider 02/06/24 03/07/24 Anastasia Stearns, RN Lead Trust Manager 02/06/24 12/17/24 Germaine Aleman, W Community Health Worker Primary Care - CC 02/18/24 12/17/24 Robin Zepeda MD [address] [place], [place] [address] [address] Assigned Neuroscience Provider 03/08/24 05/07/24 Lisa Zambrano MD [address] [facility] [address] [place] [address] Assigned Heart and Vascular Provider 05/08/24 07/07/24 Raul Hoyos MD [address] [place] [address] Assigned Neuroscience Provider 05/08/24 07/07/24 Joya Lira Joleen [address] [place] [address] Pharmacist Pharmacist 05/25/24 Joya Lira [facility] [address] [place] [address] Assigned MTM Pharmacist 06/08/24 Fabi Coates MD [address] [place] [address] 75 [place] [address] Genetics, Clinical 06/18/24 Robin Zepeda MD [address] [place], [place] [address] [place] [address] Assigned Neuroscience Provider 07/08/24 08/07/24 Danna Cardenas PA-C [address] [facility] [place] [address] Assigned Heart and Vascular Provider 07/08/24 12/05/24 Felicita Desai, RN Lead Trust Manager 07/14/24 07/28/24 Arthur Salas, [facility] [address] [place] [address] Assigned Behavioral Health Provider 08/08/24 Randy Maradiaga DO [address] [place] [address] Assigned Neuroscience Provider 08/08/24 Tete Wang MD [address] [place] [address] Genetics, Clinical 10/30/24 Dahlia Joyce MD [address] [place] [address] Radiology Neuroradiology 11/17/24 Lisa Zambrano MD [address] [facility] [address] [place] [address] Assigned Heart and Vascular Provider 12/06/24 Tete Wang MD [address] [place] [address] Assigned Pediatric Specialist Provider 01/06/25 Any Joiner MD [address] [place] [address] Assigned Pulmonology Provider 02/05/25 documented as of this encounter
--- OUTSIDE RECORDS SUMMARY | 2025-03-09 12:22 | XMS_ITS | Encounter Summary ---
Author Organization [facility] Address [address] [place] [address] Care Team Providers Care Internal Audit Consultant Name Role Phone Yung Madrigal MD Unavailable Unavailable Winston Villatoro OD Unavailable [phone] Denise Woodson APRN RETOUCHER PHOTOENGRAVING Unavailable [phone] Denise Woodson APRN RETOUCHER PHOTOENGRAVING Primary Care Provider Usha Simon APRN RETOUCHER PHOTOENGRAVING Unavailable Dangelo Salinas MD Unavailable Usha Simon APRN RETOUCHER PHOTOENGRAVING Unavailable Anastasia Stearns RN Unavailable [phone] Germaine Aleman CHW Unavailable [phone] Robin Zepeda MD Unavailable [phone] Lisa Zambrano MD Unavailable Raul Hoyos MD Unavailable [phone] Joya Lira [facility] Unavailable [phone] Joya Lira RPJoleen Unavailable Fabi Coates MD Unavailable [phone] Robin Zepeda MD Unavailable Danna Cardenas PA-C Unavailable [phone] Felicita Desai RN Unavailable Unavailab Arthur RiosSW Unavailable +[phone] AshwiniRandy Yobany MARTIN Unavailable + Tete Wang MD Unavailable [phone] Dahlia Joyce MD Unavailable [phone] Lisa Zambrano MD Unavailable + [phone] Tete Wang MD Unavailable [phone] Any Joiner MD Unavailable [phone] Encounter Details Date Type Department Care Team (Late st Contact Info) Description 06/13/2021 [facility] [address] [place] [address] Denise [place]son APRN [facility] [address] [place] [address] Insomnia, unspecified type Social History [...] on file Legal Sex Female 4:05 AM BILINGUAL SALES CONSULTANT Gender Identity Not on file Sexual [...] a refill on file. Prescription approved per [facility] protocol. Mary Caraballo RN on 06/13/2021 at 5:18 PM documented in this encounter Plan of Treatment Upcoming Encounters Date Type Department Care Team (Late st Contact Info) Description 03/16/2025 8:00 AM CDT Virtual Visit [address] [phone] Myles Bindu, OD 909 [place], [place] [address] Rubi Johnson, OT [address] 601037 03/26/2025 12:45 PM CDT Therapy Visit [address] [phone] Bindu Bueno, OD 909 [place] [address] Rubi Johnson, OT [address] [address] 04/02/2025 9:30 AM CDT Therapy Visit [address] [phone] Randy Maradiaga, DO 909 [place] [address] Delicia George, PT 150 [place], [place] 6[address] 04/06/2025 11:00 AM CDT Virtual Visit [address] [phone] Bindu Bueno, OD 909 [place], [place] 340625 Rubi Johnson, OT [facility] 150 [place] [address] 04/06/2025 12:30 PM CDT Therapy Visit [facility] 150 [place] [phone] Randy Maradiaga, DO 909 [place], [place] 8[address] Delicia George, PT 150 [facility] [address] 04/16/2025 11:00 AM CDT Therapy Visit [address] [phone] Bindu Bueno, OD 909 [place], [place] 5[address] Rubi Johnson, OT [facility] 150 [place] [address] 04/23/2025 12:45 PM CD[facility] 150 [place] [phone] Bindu Bueno, OD 909 [place] [address] Rubi Johnson, OT [facility] 150 [place] [address] 04/23/2025 2:00 PM CDT Therapy Visit [address] [phone] Randy Maradiaga, DO 909 [place] [address] Delicia George, PT 150 [place] [address] 04/30/2025 10:15 AM CDT Therapy Visit [address] [phone] Randy Maradiaga, DO [address] [place] [address]765 Delicia George, PT 150 [place] [address] 05/04/2025 11:00 AM CDT Virtual Visit [address] [phone] Bindu Bueno, OD 909 [place] [address] Rubi Johnson, [address] [address] 05/07/2025 10:15 AM CDT Therapy Visit [address] [phone] Randy Maradiaga, DO [address] [place] [address] 137095 Delicia George, PT 150 [place], [place] 76[address] 05/14/2025 10:15 AM CDT Therapy Visit [address] [phone] Randy Maradiaga DO [address] [place] [address] 687255 Delicia George, PT 150 [place] [address] 05/14/2025 11:00 AM CDT Therapy Visit [address] [phone] Bindu Bueno, OD [address] [place] [address] 276305 Rubi Johnson, [address] [address] 06/01/2025 11:15 AM CDT Appointment [facility] Imaging [address] [place] [phone] Robin Zepeda MD [address] [place] [address] 411245 06/02/2025 2:20 PM CDT Virtual Visit [facility] [address] 3rd [place] [phone] Robin Zepeda MD [address] [place] [address] 692055 07/01/2025 12:00 PM CDT Virtual Visit [facility] [place] [address] [place] [address] 3rd [place] [address] Santa Menon PAMani [address] [place] [address] 578535 08/03/2025 4:30 PM BILINGUAL SALES CONSULTANT Virtual Visit [facility] [address] [phone] Any Joiner MD 420 [facility] 276 [place] [address] documented as of this encounter Visit Diagnoses Diagnosis Insomnia, unspecified type documented in this encounter Additional Health Concerns Infection Onset Date Last Indicated Resolved Time Rule Out COVID-19 09/13/2024 09/13/2024 09/13/2024 12:31 PM BILINGUAL SALES CONSULTANT Rule Out COVID-19 11/14/2024 11/14/2024 11/14/2024 8:25 PM BILINGUAL SALES CONSULTANT Assessment Noted Time PHQ-9 Depression Total Score: 0 01/05/20 9:31 AM CDT documented as of this encounter Care Teams Internal Audit Consultant Relationship Specialty Start Date End Date Yung Madrigal MD RETIRED PCP - Orthopaedics Orthopedics 08/26/12 01/20/24 Winston Villatoro, [facility] [place] [address] [place] [address] PCP - Ophthalmology Ophthalmology 02/11/13 Denise [place]son APRN RETOUCHER PHOTOENGRAVING [address] [place] [address] PCP - General Family Practice 09/21/20 Denise Woodson APRN RETOUCHER PHOTOENGRAVING [address] [place] [address] Assigned PCP 07/17/20 Usha Simon APRN RETOUCHER PHOTOENGRAVING [address] [address] Nurse Practitioner Neurological Surgery 01/24/24 Dangelo Salinas MD [address] [place] [address] Neurology 01/27/24 Usha Simon APRN RETOUCHER PHOTOENGRAVING [address] [place] [address] Assigned Neuroscience Provider 02/06/24 03/07/24 Anastasia Stearns, RN Lead Medical Reception Specialist 02/06/24 12/17/24 Germaine Aleman, W Community Health Worker Primary Care - CC 02/18/2412/17/24 Robin Zepeda MD [address] [place] [address] Assigned Neuroscience Provider 03/08/24 05/07/24 Lisa Zambrano MD [address] [place] [address] Assigned Heart and Vascular Provider 05/08/24 07/07/24 Raul Hoyos MD [address] [place] [address] Assigned Neuroscience Provider 05/08/24 07/07/24 Soraya Joya, [facility] [address] [facility] [place] [address] Pharmacist Pharmacist 05/25/24 SorayaJoya [facility] [address] [place] [address] Assigned MTM Pharmacist 06/08/24 Fabi Coates MD [address] [place] [address] 75 [place], [place] 590[address] Genetics, Clinical 06/18/24 Robin Zepeda MD [address] [place], [place] [address] [place], [place] [address] Assigned Neuroscience Provider 07/08/24 08/07/24 Danna Cardenas PA-C [address] [place] [address] 924105 Assigned Heart and Vascular Provider 07/08/24 12/05/24 Felicita Desai RN Lead Medical Reception Specialist 07/14/24 07/28/24 Arthur Salas [facility] [address] [place] [address] Assigned Behavioral Health Provider 08/08/24 Randy Maradiaga DO [address] [place] [address] 089725 Assigned Neuroscience Provider 08/08/24 Tete Wang MD [address] [place] [address] 515274 Genetics, Clinical 10/30/24 Dahlia Joyce MD 909 [place] [address] Radiology Neuroradiology 11/17/24 Lisa Zambrano MD 6[address] [facility] [place] [address] Assigned Heart and Vascular Provider 12/06/24 Tete Wang MD [facility] [place], [place] 708864 Assigned Pediatric Specialist Provider 01/06/25 Any Joiner MD [address] [place] [address] 276 [place], [place] 503565 Assigned Pulmonology Provider 02/05/25 documented as of this encounter
--- OUTSIDE RECORDS SUMMARY | 2025-03-09 12:22 | XMS_ITS | Encounter Summary ---
Author Organization [place] Address [address] [place] [address] Care Team Providers Care Cloth Bleaching Range Tender Name Role Phone Winston Villatoro OD Unavailable [phone] Denise Woodson APRN SOLE EDGE INKER MACHINE Unavailable [phone] Denise Woodson APRN SOLE EDGE INKER MACHINE Primary Care Provider Usha Simon APRN SOLE EDGE INKER MACHINE Unavailable + [phone] Dangelo Salinas MD Unavailable Anastasia Stearns RN Unavailable Germaine Aleman CHW Unavailable +[phone] Joya Lira RP Unavailable +[phone] Joya Lira RP Unavailable +[phone] Fabi Coates MD Unavailable [phone] Danna CardenasC Unavailable +[phone] SinanselmoledyArthur FELT HOOKER Unavailable +[phone] Randy Maradiaga DO Unavailable + Tete Wang MD Unavailable +[phone] Dahlia Joyce MD Unavailable +[phone] Lisa Zambrano MD Unavailable + [phone] Tete Wang MD Unavailable +[phone] Any Joiner MD Unavailable Encounter Details Date Type Department Care Team (Late st Contact Info) Description 11/06/2024 MyC Medical Advice [facility] [address] [place] [phone] Denise Woodson APRN [facility] [address] [place] [address] Social History Tobacco Use Types [...] Never 09/16/2024 How often do you attend amish or jain serv ices? Never 09/16/2024 Do you belong [...] Date Recorded PHQ-2 Score 0 09/29/2024 [facility] [...] file Legal Sex Female 4:05 AM FREIGHT BREAKER Gender Identity Not on file Sexual Orientation [...] Description 03/16/2025 8:00 AM CDT Virtual Visit [facility] [address] [phone] Bindu Bueno, OD 909 [place], [place] 18[address] Rubi Johnson, OT [address] [address] 03/26/2025 12:45 PM CDT Therapy Visit [address] [phone] Bindu Bueno, OD 909 [place], [place] [address]135 Rubi Johnson, OT [address] 035567 04/02/2025 9:30 AM CDT Therapy Visit [address] [phone] Randy Maradiaga, DO 909 [place] [address] Delicia George, PT 150 [place], [place] 809987 04/06/2025 11:00 AM CDT Virtual Visit [address] [phone] Bindu Bueno, OD 909 [place] [address] Rubi Johnson, OT [address] [address] 04/06/2025 12:30 PM CDT Therapy Visit [address] [phone] Randy Maradiaga, DO 909 [place] [address] Delicia George, PT 150 [facility] [place] [address] 04/16/2025 11:00 AM CDT Therapy Visit [address] [phone] BuenoBindu, OD 909 [place] [address] Rubi Johnson, OT [address] [address] 04/23/2025 12:45 PM CDT [facility] 150 [place] [phone] BuenoBindu flores, OD 909 [place] [address] Rubi Johnson, OT [address] [address] 04/23/2025 2:00 PM CDT Therapy Visit [address] [phone] Randy Maradiaga, DO [address] [place] [address] Delicia George, PT 150 [place] [address] 04/30/2025 10:15 AM CDT Therapy Visit [address] [phone] Randy Maradiaga, DO [address] [place] [address] Delicia George, PT 150 [place] [address] 05/04/2025 11:00 AM CDT Virtual Visit [address] [phone] Bindu Bueno, OD 909 [place] [address] Rubi Johnson, [address] [address] 05/07/2025 10:15 AM CDT Therapy Visit [address] [phone] Randy Maradiaga, DO [address] [place] [address] 794845 Delicia George, PT 150 [facility] [place] [address] 05/14/2025 10:15 AM CDT Therapy Visit [address] [phone] Randy Maradiaga, [address] [place] [address] Delicia George, PT 150 [facility] [place] [place] [address] 05/14/2025 11:00 AM CDT Therapy Visit [address] [phone] Bindu Bueno, OD [address] [place] [address] 748915 Rubi Johnson, OT [address] [address] 06/01/2025 11:15 AM CDT Appointment [facility] Imaging [address] [facility] [address] [place] [phone] Robin Zepeda MD [address] [place] [address] 06/02/2025 2:20 PM CDT Virtual Visit [facility] Neurosurgery Clinic [address] 3rd [place] [phone] Robin Zepeda MD [address] [place] [address] 07/01/2025 12:00 PM CDT Virtual Visit [facility] Rehabilitation Clinic [address] 3rd [place] [phone] Santa Menon PA-C [address] [place] [address] 578775 08/03/2025 4:30 PM FREIGHT BREAKER Virtual Visit [facility] [address] [phone] Any Joiner MD 420 [facility] 276 [place] [address] documented as of this encounter Visit Diagnoses Not on filedocumented in this encounter Additional Health Concerns Infection Onset Date Last Indicated Resolved Time Rule Out COVID-19 11/14/2024 11/14/2024 11/14/2024 8:25 PM FREIGHT BREAKER Assessment Noted Time PHQ-9 Depression Total Score: 0 09/18/19 12:46 PM FREIGHT BREAKER documented as of this encounter Care Teams Cloth Bleaching Range Tender Relationship Specialty Start Date End Date Winston Villatoro OD [facility] [address] [facility] [address] [place] [address] PCP - Ophthalmology Ophthalmology 02/11/13 Denise Woodson APRN SOLE EDGE INKER MACHINE [address] [place] [address] PCP - General Family Practice 09/21/20 Denise Woodson APRN SOLE EDGE INKER MACHINE [address] [place] [address] Assigned PCP 07/17/20 Usha Simon APRN SOLE EDGE INKER MACHINE [address] [place] [address] [id number] [place] [address] Nurse Practitioner Neurological Surgery 01/24/24 Dangelo Salinas MD [address] [facility] [address] [place], [place] [phone] Neurology 01/27/24 Anastasia Stearns, RN Lead Salesforce Specialist 02/06/24 12/17/24 Germaine Aleman, W Community Health Worker Primary Care - CC 02/18/2412/17/24 Joya Lira [facility] [address] [place], [place] [phone] Pharmacist Pharmacist 05/25/24 Joya Lira [facility] [address] [address] Assigned MTM Pharmacist 06/08/24 Fabi Coates MD [address] [place] [address] 75 [place], [place] 308255 Genetics, Clinical 06/18/24 Danna Cardenas PA-C [facility]5 [place] [address] Assigned Heart and Vascular Provider 07/08/24 12/05/24 Arthur Salas, FELT HOOKER [address] [address] Assigned Behavioral Health Provider 08/08/24 Randy Maradiaga DO 909 [place], [place] 917545 Assigned Neuroscience Provider 08/08/24 Tete Wang MD 2450 [place], [place] 042134 Genetics, Clinical 10/30/24 Dahlia Joyce MD [address] [place] [address] 308045 Radiology Neuroradiology 11/17/24 Lisa Zambrano MD 6405 [facility] [address] [place], [place] 796075 Assigned Heart and Vascular Provider 12/06/24 Tete Wang MD [facility]0 [place], [place] [address]574 Assigned Pediatric Specialist Provider 01/06/25 Any Joiner MD [address] [place] [address] 276 [place], [place] [phone] Assigned Pulmonology Provider 02/05/25 documented as of this encounter
--- OUTSIDE RECORDS SUMMARY | 2025-03-09 12:22 | XMS_ITS | Encounter Summary ---
Author Organization [place] Address [address] [place] [address] Care Team Providers Care Garage Mechanic Name Role Phone Yung Madrigal MD Unavailable Unavailable Winston Villatoro OD Unavailable [phone] Serum, Clara Garland MD Primary Care Provider Serum, Clara Garland MD Unavailable [phone] Denise Woodson APRN HARVEST CONTRACTOR Unavailable [phone] Denise Woodson APRN HARVEST CONTRACTOR Primary Care Provider Usha Simon SPINAL SURGEON HARVEST CONTRACTOR Unavailable Dangelo Salinas MD Unavailable Usha Simon SPINAL SURGEON HARVEST CONTRACTOR Unavailable Anastasia Stearns RN Unavailable [phone] Germaine Aleman CHW Unavailable [phone] Robin Zepeda MD Unavailable Lisa Zambrano MD Unavailable Raul Hoyos MD Unavailable Joya Lira [facility] Unavailable [phone] Joya Lira RP Unavailable +[phone] Fabi Coates MD Unavailable [phone] Robin Zepeda MD Unavailable Danna Cardenas PA-C Unavailable [phone] Felicita Desai RN Unavailable Unavailab Arthur Rios Unavailable +[phone] JefRandy oneill Unavailable + Tete Wang MD Unavailable +[phone] Dahlia Joyce MD Unavailable [phone] Lisa Zambrano MD Unavailable + [phone] Tete Wang MD Unavailable +[phone] Any Joiner MD Unavailable [phone] Encounter Details Date Type Department Care Team (Late st Contact Info) Description 06/16/2019 MyC Medical Advice [facility] [address] [facility] [address] [place] [address] Serum, Clara Garland MD 8683 [place] [address] Social History Tobacco Use Types [...] Legal Sex Female 4:05 AM DIRECTOR OF ASSESSING Gender Identity Not on file Sexual Orientation Not on file 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 Not on file Not on file Not on file Not on file Not on file Not on file documented as of this encounter Plan of Treatment Upcoming Encounters Date Type Department Care Team (Late st Contact Info) Description 03/16/2025 8:00 AM CDT Virtual Visit [facility] Rehabilitation Services [address] [phone] Bindu Bueno, OD 909 [place] [address] Rubi Johnson, OT [address] [address] 03/26/2025 12:45 PM CDT Therapy Visit [address] [phone] Bindu Bueno, OD 909 [place] [address] Rubi Johnson, OT [address] [address] 04/02/2025 9:30 AM CDT Therapy Visit [address] [phone] Randy Maradiaga, DO 909 [place] [address] Delicia George, PT 150 [place] [address] 04/06/2025 11:00 AM CDT Virtual Visit [address] [phone] Bindu Bueno, OD 909 [place], [place] 903075 Rubi Johnson, OT [address] [address] 04/06/2025 12:30 PM CDT [facility] 150 [place] [address] Randy Maradiaga, DO [address] [place] [address] Delicia George, PT 150 [place], [place] [address]27 04/16/2025 11:00 AM CDT Therapy Visit [address] [phone] Magali Buenoissa, OD [address] [place] [address] Rubi Johnson, OT [address] 328[address] 04/23/2025 12:45 PM CDT Therapy Visit [address] [phone] Bindu Bueno, OD 909 [place] [address] Rubi Johnson, OT [address] [address] 04/23/2025 2:00 PM CDT Therapy Visit [address] [phone] Randy Maradiaga, DO [address] [place] [address] Delicia George, PT 150 [place] [address] 04/30/2025 10:15 AM CDT Therapy Visit [address] [phone] Randy Maradiaga, DO [address] [place] [address] 287225 Delicia George, PT 150 [place] [address] 05/04/2025 11:00 AM CDT Virtual Visit [address] [phone] Bindu Bueno, OD 909 [place], [place] 368235 Rubi Johnson, OT [address] [address] 05/07/2025 10:15 AM CDT Therapy Visit [address] [phone] Randy Maradiaga, DO 9 [place] [address] Delicia George, PT 150 [place], [place] 6[address]37 05/14/2025 10:15 AM CDT Therapy Visit [address] [phone] Randy Maradiaga, DO [address] [place] [address] Delicia George, PT 150 [facility] [place] [address] 05/14/2025 11:00 AM CDT Therapy Visit [facility] Rehabilitation Services [address] [phone] Bindu Bueno, OD 909 [place] [address] Rubi Johnson, OT [facility] 150 [place] [address] 06/01/2025 11:15 AM CDT Appointment [facility] Special[facility] Care Center Imaging [address] [facility] [address] [place] [phone] Robin Zepeda MD [address] [place] [place] [address] 741555 06/02/2025 2:20 PM CDT Virtual Visit [facility] Neurosurgery Clinic [address] [phone] Robin Zepeda MD [address] [place] [place] [address] 07/01/2025 12:00 PM CDT Virtual Visit [facility] Physical Medicine and Rehabilitation Clinic [address] [phone] Santa Menon PANilesC [address] [place] [address] 08/03/2025 4:30 PM DIRECTOR OF ASSESSING Virtual Visit [facility] [place] 909 [place] [address] Any Joiner MD 420 [facility] 276 [place], [place] [address] documented as of this encounter Visit Diagnoses Not on filedocumented in this encounter Additional Health Concerns Infection Onset Date Last Indicated Resolved Time Rule Out COVID-19 09/13/2024 09/13/2024 09/13/2024 12:31 PM DIRECTOR OF ASSESSING Rule Out COVID-19 11/14/2024 11/14/2024 11/14/2024 8:25 PM DIRECTOR OF ASSESSING Assessment Noted Time PHQ-9 Depression Total Score: 0 06/15/20 19 7:09 PM CDT documented as of this encounter Care Teams Garage Mechanic Relationship Specialty Start Date End Date Yung Madrigal MD RETIRED PCP - Orthopaedics Orthopedics 08/26/12 01/20/24 Winston Villatoro OD [facility] [place] [address] [place] [address] PCP - Ophthalmology Ophthalmology 02/11/13 Clara Cornell MD [facility] [place] [address] [place] [address] PCP - General Internal Medicine 02/07/17 09/20/20 Denise Woodson APRN HARVEST CONTRACTOR [address] [place] [address] PCP - General Family Practice 09/21/20 Clara Cornell MD 8675 [place] [address] Assigned PCP 01/17/17 07/16/20 Denise Woodson APRN HARVEST CONTRACTOR [address] [address] [facility] [facility] [address] Assigned PCP 07/17/20 Usha Simon APRN HARVEST CONTRACTOR [address] [address] Nurse Practitioner Neurological Surgery 01/24/24 Dangelo Salinas MD [address] [place] [address] Neurology 01/27/24 Usha Simon APRN HARVEST CONTRACTOR [address] 129995 Assigned Neuroscience Provider 02/06/24 03/07/24 Anastasia Stearns, RN Lead Marketing Database Consultant 02/06/24 12/17/24 Germaine Aleman, W Community Health Worker Primary Care - CC 02/18/2412/17/24 Robin Zepeda MD [address] [address] Assigned Neuroscience Provider 03/08/24 05/07/24 Lisa Zambrano MD [address] [place] [address] Assigned Heart and Vascular Provider 05/08/24 07/07/24 Raul Hoyos MD [address] [address] Assigned Neuroscience Provider 05/08/24 07/07/24 Joya Lira [facility] [address] [place] [address] Pharmacist Pharmacist 05/25/24 Joya Lira [facility] [address] [place] [address] Assigned MTM Pharmacist 06/08/24 Fabi Coates MD [address] [place] [address] 75 [place] [address] Genetics, Clinical 06/18/24 Robin Zepeda MD [address] [place], [place] [address] [address] Assigned Neuroscience Provider 07/08/24 08/07/24 Danna Cardenas PA-C [address] [place] [address] Assigned Heart and Vascular Provider 07/08/24 12/05/24 Felicita Desai RN Lead Marketing Database Consultant 07/14/24 07/28/24 Arthur Salas, [facility] [address] [place] [address] Assigned Behavioral Health Provider 08/08/24 Randy Maradiaga DO [address] [place] [address] Assigned Neuroscience Provider 08/08/24 Tete Wang MD [address] [place] [address] [place] 445804 Genetics, Clinical 10/30/24 Dahlia Joyce MD [address] [place] [address] Radiology Neuroradiology 11/17/24 Lisa Zambrano MD 6405 [facility] [address] [place] [address] Assigned Heart and Vascular Provider 12/06/24 Tete Wang MD [address] [place] [address] [id number] Assigned Pediatric Specialist Provider 01/06/25 Any Joiner MD [address] [place] [address] Assigned Pulmonology Provider 02/05/25 documented as of this encounter
--- OUTSIDE RECORDS SUMMARY | 2025-03-09 12:22 | XMS_ITS | Encounter Summary ---
Author Organization [place] Address [address] [place] [address] Care Team Providers Care Home Inspector Name Role Phone Yung Madrigal MD Unavailable Unavailable Winston Villatoro OD Unavailable [phone] Denise Woodson APRN FOIL SPOOLER Unavailable [phone] Denise Woodson APRN FOIL SPOOLER Primary Care Provider Usha Simon APRN FOIL SPOOLER Unavailable Dangelo Salinas MD Unavailable Usha Simon APRN FOIL SPOOLER Unavailable Anastasia Setarns RN Unavailable Germaine Aleman CHW Unavailable [phone] Robin Zepeda MD Unavailable Lisa Zambrano MD Unavailable Raul Hoyos MD Unavailable Joya Lira [facility] Unavailable [phone] Joya Lira RPJoleen Unavailable Fabi Coates MD Unavailable [phone] Robin Zepeda MD Unavailable [phone] Danna Cardenas PA-C Unavailable [phone] Felicita Desai RN Unavailable Unavailab Arthur RiosSW Unavailable [phone] Randy Maradiaga DO Unavailable + Tete Wang MD Unavailable [phone] Dahlia Joyce MD Unavailable [phone] Lisa Zambrano MD Unavailable + [phone] Tete Wang MD Unavailable [phone] Any Joiner MD Unavailable [phone] Reason for Visit * Reason Onset Date Comments URI 09/21/2020 Encounter Details Date Type Department Care Team (Late st Contact Info) Description 09/21/2020 [facility] [address] [place] [phone] Denise Woodson APRN [facility] [address] [place] [address] URI Social History Tobacco Use Types Packs/Day Years Used Date Smoking Tobacco: Never Smokeless Tobacco: Never Alcohol Use Standard Drinks/Week Comments Yes 0 (1 standard drink = 0.6 oz pur e alcohol) minimal PHQ-2 Answer Date Recorded PHQ-2 Score 2 07/13/2020 Comments No Sex and Gender Information Value Date Recorded Sex Assigned at Not on file Legal Sex Female 4:05 AM SIGN INSTALLER Gender Identity Not on file Sexual Orientation Not on file 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 No / Unsure 09/21/2020 12:04 PM SIGN INSTALLER documented as of this encounter Miscellaneous Notes * Telephone Encounter - Kati Yang RN - 09/21/2020 10:54 AM CST i-Nalysis message sent to patient. Kati Yang RN INSTALLER documented in this encounter Plan of Treatment Upcoming Encounters Date Type Department Care Team (Late st Contact Info) Description 03/16/2025 8:00 AM CDT Virtual Visit [address] [phone] Bindu Bueno, OD 909 [place], [place] 592865 Rubi Johnson, OT [address] 662257 03/26/2025 12:45 PM CDT Therapy Visit [address] [phone] Bindu Bueno, OD 909 [place], [place] 6656[address] Rubi Johnson, OT [address] 155497 04/02/2025 9:30 AM CDT Therapy Visit [address] [phone] Randy Maradiaga, DO 909 [place] [address] Delicia George, PT 150 [place], [place] 518147 04/06/2025 11:00 AM CDT Virtual Visit [address] [phone] Bindu Bueno, OD 909 [place], [place] 986475 [facility]i [facility], [facility] [address] [place] [address] 04/06/2025 12:30 PM CDT Therapy Visit [facility] 150 [place] [phone] Randy Maradiaga, DO [address] [place] [address] 795975 Delicia George, PT 150 [facility] [place], [place] 051457 04/16/2025 11:00 AM CDT Therapy Visit [address] [phone] Bindu Bueno, OD 909 [place], [place] 195725 Rubi Johnson, OT [facility] 150 [place] [address] 04/23/2025 12:45 PM CDT Therapy Visit [facility] 150 [place] [phone] Bindu Bueno, OD 909 [place] [address] Rubi Johnson, OT [facility] 150 [place] [address] 04/23/2025 2:00 PM CDT Therapy Visit [address] [phone] Randy Maradiaga, DO 909 [place] [address] Delicia George, PT 150 [place] [address] 04/30/2025 10:15 AM CDT Therapy Visit [address] [phone] Randy Maradiaga, DO [address] [place] [address] 032585 Delicia George, PT 150 [place] [address] 05/04/2025 11:00 AM CDT Virtual Visit [address] [phone] Bindu Bueno, OD 909 [place] [address] Rubi Johnson, [address] [address] 05/07/2025 10:15 AM CDT Therapy Visit [address] [phone] Randy Maradiaga, DO [address] [place] [address] 217865 Delicia George, PT 150 [place], [place] 9[address]27 05/14/2025 10:15 AM CDT Therapy Visit [address] [phone] Randy Maradiaga DO [address] [place] [address] 382185 Delicia George, PT [address] [place] [address] 05/14/2025 11:00 AM CDT Therapy Visit [address] [phone] Bindu Bueno, OD [address] [place] [address] 045295 Rubi Johnson, [address] [address] 06/01/2025 11:15 AM CDT Appointment [facility] [address] [place] [address] [place] [phone] Robin Zepeda MD [address] [place] [address] 434945 06/02/2025 2:20 PM CDT Virtual Visit [facility] [address] 3rd [place] [phone] Robin Zepeda MD [address] [place] [address] 720535 07/01/2025 12:00 PM CDT Virtual Visit [facility] [place] [address] [place] [address] 3rd [place] [address] [place] PAMani [address] [place] [address] 357445 08/03/2025 4:30 PM SIGN INSTALLER Virtual Visit [facility] [address] [address] Any Joiner MD 420 [facility] 276 [place] [address] documented as of this encounter Visit Diagnoses Not on filedocumented in this encounter Additional Health Concerns Infection Onset Date Last Indicated Resolved Time Rule Out COVID-19 09/13/2024 09/13/2024 09/13/2024 12:31 PM SIGN INSTALLER Rule Out COVID-19 11/14/2024 11/14/2024 11/14/2024 8:25 PM SIGN INSTALLER Assessment Noted Time PHQ-9 Depression Total Score: 0 06/15/20 19 7:09 PM CDT documented as of this encounter Care Teams Home Inspector Relationship Specialty Start Date End Date Yung Madrigal MD RETIRED PCP - Orthopaedics Orthopedics 08/26/12 01/20/24 Winston Villatoro, [facility] Jarratt [address] [place] [address] PCP - Ophthalmology Ophthalmology 02/11/13 Denise Woodson APRN FOIL SPOOLER [address] [address] PCP - General Family Practice 09/21/20 Denise Woodson APRN FOIL SPOOLER [address] [place] [address] Assigned PCP 07/17/20 Usha Simon APRN FOIL SPOOLER [address] [address] Nurse Practitioner Neurological Surgery 01/24/24 Dangelo Salinas MD [address] [place] [address] Neurology 01/27/24 Usha Simon APRN FOIL SPOOLER [address] [place] [address] Assigned Neuroscience Provider 02/06/24 03/07/24 Anastasia Stearns, RN Lead Daytime Babysitter 02/06/24 12/17/24 Germaine Aleman, W Community Health Worker Primary Care - CC 02/18/2412/17/24 Robin Zepeda MD [address] [address] Assigned Neuroscience Provider 03/08/24 05/07/24 Lisa Zambrano MD [address] [address] Assigned Heart and Vascular Provider 05/08/24 07/07/24 Raul Hoyos MD [address] [place] [address] Assigned Neuroscience Provider 05/08/24 07/07/24 Joya Lira [facility] [address] [place] [address] Pharmacist Pharmacist 05/25/24 Soraya Joya [facility] [address] [place] [address] Assigned MTM Pharmacist 06/08/24 Fabi Coates MD [address] [place] [address] 75 [place], [place] [address] Genetics, Clinical 06/18/24 Robin Zepeda MD [address] [place], [place] [address] [place], [place] 8[address]455 Assigned Neuroscience Provider 07/08/24 08/07/24 Danna Cardenas PA-C [address] [place] [address] 746625 Assigned Heart and Vascular Provider 07/08/24 12/05/24 Felicita Desai RN Lead Daytime Babysitter 07/14/24 07/28/24 Arthur Salas [facility] [address] [place] [address] Assigned Behavioral Health Provider 08/08/24 Randy Maradiaga DO [address] [place] [address] 371735 Assigned Neuroscience Provider 08/08/24 Tete Wang MD [address] [place] [address] Genetics, Clinical 10/30/24 Dahlia Joyce MD [address] [place] [address] Radiology Neuroradiology 11/17/24 Lisa Zambrano MD 6405 [facility]340 [place] [address] Assigned Heart and Vascular Provider 12/06/24 Tete Wang MD 2450 [place] [address] Assigned Pediatric Specialist Provider 01/06/25 Any Joiner MD [address] [place] [address] 276 [place] [address] Assigned Pulmonology Provider 02/05/25 documented as of this encounter
--- OUTSIDE RECORDS SUMMARY | 2025-03-09 12:22 | XMS_ITS | Encounter Summary ---
Author Organization [place] Address [address] [place] [address] Care Team Providers Care Piece Hand Name Role Phone Yung Madrigal MD Unavailable Unavailable Winston Villatoro OD Unavailable [phone] Serum, Clara Garland MD Primary Care Provider Serum, Clara Garland MD Unavailable [phone] Denise Woodson APRN METAL TANK BUILDER Unavailable [phone] Denise Woodson APRN METAL TANK BUILDER Primary Care Provider Usha Simon GAS PLANT TECHNICIAN METAL TANK BUILDER Unavailable Dangelo Salinas MD Unavailable Usha Simon GAS PLANT TECHNICIAN METAL TANK BUILDER Unavailable Anastasia Stearns RN Unavailable [phone] Germaine Aleman CHW Unavailable [phone] Robin Zepeda MD Unavailable Lisa Zambrano MD Unavailable Raul Hoyos MD Unavailable Joya Lira [facility] Unavailable [phone] Joya Lira RP Unavailable Fabi Coates MD Unavailable [phone] Robin Zepeda MD Unavailable Danna Cardenas PA-C Unavailable [phone] Felicita Desai RN Unavailable Unavailab Arthur Rios Unavailable [phone] Randy Maradiaga DO Unavailable + Tete Wang MD Unavailable [phone] Dahlia Joyce MD Unavailable [phone] Lisa Zambrano MD Unavailable + [phone] Tete Wang MD Unavailable [phone] Any Joiner MD Unavailable [phone] Reason for Visit * Reason Onset Date Comments LAB REQUEST 06/16/2019 Encounter Details Date Type Department Care Team (Late st Contact Info) Description 06/16/2019 [facility] [address] [facility] [address] [place] [address] Serum, Clara Garland MD 86 [place] [address] LAB REQUEST Social History Tobacco [...] file 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 Patient requesting to check TSH and antibodies for pt reported possible yonas's. Pended TSH for provider review. documented in this encounter Plan of Treatment Upcoming Encounters Date Type Department Care Team (Late st Contact Info) Description 03/16/2025 8:00 AM CDT Virtual Visit [address] [phone] [facility] Hospital[facility]ali[facility], OD 909 [place], [place] 441255 Rubi Johnson, OT [address] 617[address] 03/26/2025 12:45 PM CDT Therapy Visit [address] [phone] BuenoBindu, OD 909 [place], [place] 863625 Rubi Johnson, OT [address] [address] 04/02/2025 9:30 AM CDT Therapy Visit [address] [phone] Randy Maradiaga, DO 909 [place], [place] 739265 Delicia George, PT 150 [place] [address] 04/06/2025 11:00 AM CDT Virtual Visit [address] [place] [phone] Bindu Bueno, OD 909 [place], [place] 093085 Rubi Johnson, OT [facility] 150 [place], [place] 975617 04/06/2025 12:30 PM CDT Therapy Visit [facility] 150 [place] [phone] Randy Maradiaga, DO [address] [place] [address] Delicia George, PT 150 [facility] [place] 600357 04/16/2025 11:00 AM CDT Therapy Visit [address] [phone] Bindu Bueno, OD 909 [place], [place] 700925 Rubi Johnson, OT [facility] 150 [place] [address] 04/23/2025 12:45 PM CDT Therapy Visit [facility] 150 [place] [phone] Bindu Bueno, OD 909 [place], [place] 778155 Rubi Johnson, OT [facility] 150 [place] [address] 04/23/2025 2:00 PM CDT Therapy Visit [address] [phone] Randy Maradiaga, DO [address] [place] [address] Delicia George, PT 150 [place] [address] 04/30/2025 10:15 AM CDT Therapy Visit [address] [phone] Randy Maradiaga, DO [address] [place] [address] 859695 Delicia George, PT 150 [place] [address] 05/04/2025 11:00 AM CDT Virtual Visit [address] [phone] Bindu Bueno, OD 909 [place] [address] Rubi Johnson, OT [facility] [address] [address] 05/07/2025 10:15 AM CDT Therapy Visit [address] [phone] Randy Maradiaga, DO [address] [place] [address] Delicia George, PT [address] [place] [address] 05/14/2025 10:15 AM CDT Therapy Visit [address] [phone] Randy Maradiaga, [address] [place] [address] Delicia George, PT [address] [place] [address] 05/14/2025 11:00 AM CDT Therapy Visit [address] [phone] Bindu Bueno, OD [address] [place] [address] Rubi Johnson, [address] [address] 06/01/2025 11:15 AM CDT Appointment [facility] Imaging [address] [place] [phone] Robin Zepeda MD [address] [place] [address] 775315 06/02/2025 2:20 PM CDT Virtual Visit [facility] Neuro[facility] Clinic [address] 3rd [place] [phone] Robin Zepeda MD [address] [place] [address] 07/01/2025 12:00 PM CDT Virtual [facility] [place] 909 [facility] 3rd [place] [phone] [place], PANilesC [address] [place] [address] 69077455 08/03/2025 4:30 PM 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 HEAD SAW OPERATOR Virtual Visit [facility] [address] [phone] Any Joiner MD [address] [place] [address] 276 [place], [place] [phone] documented as of this encounter Results * Follicle stimulating hormone (06/22/2019 3:36 PM CDT) FSH 9.5 IU/L 06/23/2019 2:32 PM CDT [facility] Comment: FSH Reference Range Female: Follicular 2.5-10.2 Mid-cycle 3.4-33.4 Luteal 1.5-9.1 Postmenopausal 23.0-116.3 Blood specimen (specimen) 06/22/2019 3:36 PM CDT 06/22/2019 3:37 PM CDT Clara Cornell MD LAB - BLOOD ORDERABLES Final Result [facility] [address] [place] [address] * TSH with free T4 reflex FUTURE anytime (06/22/2019 3:36 PM CDT) Pathologist [facility] TSH 3.30 0.40 - 4.00 mU/L 06/23/2019 3:12 PM CDT [facility] Blood specimen (specimen) 06/22/2019 3:36 PM CDT 06/22/2019 3:37 PM CDT Clara Cornell MD LAB - BLOOD ORDERABLES Final Result [facility] [address] [place] [address] documented in this encounter Visit Diagnoses Diagnosis Anti-TPO antibodies present- Primary Other and unspecified nonspecific immunological findings Excessive sweating Generalized hyperhidrosis documented in this encounter Additional Health Concerns Infection Onset Date Last Indicated Resolved Time Rule Out COVID-19 09/13/2024 09/13/2024 09/13/2024 12:31 PM CIRCULAR HEAD SAW OPERATOR Rule Out COVID-19 11/14/2024 11/14/2024 11/14/2024 8:25 PM CIRCULAR HEAD SAW OPERATOR Assessment Noted Time PHQ-9 Depression Total Score: 0 06/15/20 19 7:09 PM CDT documented as of this encounter Care Teams Piece Hand Relationship Specialty Start Date End Date Yung Madrigal MD RETIRED PCP - Orthopaedics Orthopedics 08/26/12 01/20/24 Winston Villatoro OD [facility] [place] [address] [place] [address] PCP - Ophthalmology Ophthalmology 02/11/13 Clara Cornell MD [facility] [place] [address] [place] [address] PCP - General Internal Medicine 02/07/17 09/20/20 Denise Woodson APRN METAL TANK BUILDER [address] [place] [address] PCP - General Family Practice 09/21/20 Clara Cornell MD [address] [place] [address] Assigned PCP 01/17/17 07/16/20 Denise Woodson APRN METAL TANK BUILDER [address] [address] [address] Assigned PCP 07/17/20 Usha Simon APRN METAL TANK BUILDER [address] [address] Nurse Practitioner Neurological Surgery 01/24/24 Dangelo Salinas MD [address] [place] [address] Neurology 01/27/24 Usha Simon APRN METAL TANK BUILDER [address] [place] [address] 857965 Assigned Neuroscience Provider 02/06/24 03/07/24 Anastasia Stearns, RN Lead Global Compensation Manager 02/06/24 12/17/24 Germaine Aleman, W Community Health Worker Primary Care - CC 02/18/2412/17/24 Robin Zepeda MD [address] 004065 Assigned Neuroscience Provider 03/08/24 05/07/24 Lisa Zambrano MD [address] [address] Assigned Heart and Vascular Provider 05/08/24 07/07/24 Raul Hoyos MD [address] [address] Assigned Neuroscience Provider 05/08/24 07/07/24 Joya Lira [facility] [address] [place] [address] Pharmacist Pharmacist 05/25/24 Joya Lira [facility] [address] [place] [address] Assigned MTM Pharmacist 06/08/24 Fabi Coates MD [address] [place] [address] 75 [place] [address] Genetics, Clinical 06/18/24 Robin Zepeda MD [address] [place] [address] [address] Assigned Neuroscience Provider 07/08/24 08/07/24 Danna Cardenas PA-C [address] [place] [address] Assigned Heart and Vascular Provider 07/08/24 12/05/24 Felicita Desai RN Lead Global Compensation Manager 07/14/24 07/28/24 Arthur Salas, [facility] [address] [place] [address] Assigned Behavioral Health Provider 08/08/24 Randy Maradiaga DO [address] [place] [address] Assigned Neuroscience Provider 08/08/24 Tete Wang MD 2450 [place] [address] Genetics, Clinical 10/30/24 Dahlia Joyce MD [address] [place] [address] Radiology Neuroradiology 11/17/24 Lisa Zambrano MD 6405 [facility] [address] [place] [address] Assigned Heart and Vascular Provider 12/06/24 Tete Wang MD [address] [place] [address] Assigned Pediatric Specialist Provider 01/06/25 Any Joiner MD 420 [facility] 276 [place] [address] Assigned Pulmonology Provider 02/05/25 documented as of this encounter
--- OUTSIDE RECORDS SUMMARY | 2025-03-09 12:22 | XMS_ITS | Encounter Summary ---
Author Organization Supply Address [address] [place] [address] Care Team Providers Care Associate Store Director Name Role Phone Timmy Perez MD Unavailable Unavailable Yung Madrigal MD Unavailable Unavailable Winston Villatoro OD Unavailable [phone] Apple Sykes MD Primary Care Provider Unavailab Westley Vera MD Unavailable [phone] GeorginaAlessandra Gómez APRN ASSISTANT MECHANIC Primary Car e Provider Serum, Clara Garland MD Primary Care Provider Serum, Clara Garland MD Unavailable +[phone] Serum, Clara Garland MD Unavailable Denise Woodson APRN ASSISTANT MECHANIC Unavailable +[phone] Denise Woodson APRN ASSISTANT MECHANIC Primary Care Provider Usha Simon APRN ASSISTANT MECHANIC Unavailable + [phone] Dangelo Salinas MD Unavailable Usha Simon APRN ASSISTANT MECHANIC Unavailable + [phone] Anastasia Stearns RN Unavailable +[phone] Germaien Aleman CHW Unavailable +[phone] Robin Zepeda MD Unavailable +[phone] Lisa Zambrano MD Unavailable + [phone] Raul Hoyos MD Unavailable Joya Lira [facility] Unavailable +[phone] SorayaJoya [facility] Unavailable +[phone] Fabi Coates MD Unavailable [phone] DuaneRobin MD Unavailable +[phone] Danna Cardenas PA-C Unavailable +[phone] Felicita Desai RN Unavailable Unavailab gabino Arthur SalasSW Unavailable +[phone] Randy Maradiaga DO Unavailable + Tete Wang MD Unavailable +[phone] Dahlia Joyce MD Unavailable +[phone] Lisa Zambrano MD Unavailable + [phone] Tete Wang MD Unavailable +[phone] Any Joiner MD Unavailable [phone] Reason for Visit * Reason Onset Date Comments MyChart Communication 05/30/2013 Encounter Details Date Type Department Care Team (Latest Contact Info) Description 05/30/2013 MyC Medical Advice [facility] in [address] [phone] Apple Sykes MD MyChart Communication Social History Tobacco Use Types Packs/Day Years Used Date Smoking Tobacco: Never Smokeless Tobacco: Never Alcohol Use Standard Drinks/Week Comments Yes 0 (1 standard drink = 0.6 oz pur e alcohol) minimal Comments No Sex and Gender Information Value Date Recorded Sex Assigned at Not on file 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 [address] [place] [address] 571857 03/26/2025 12:45 PM [facility] 150 [place] [phone] Bindu Bueno, OD [address]09 [place] [address] Rubi Johnson, OT [address] 890227 04/02/2025 9:30 AM CDT Therapy Visit [address] [phone] Randy Maradiaga, DO 909 [place] [address] Delicia George, PT 150 [facility] [place] 0[address]377 04/06/2025 11:00 AM CDT Virtual Visit [address] [phone] Bindu Bueno, OD [address] [place], [place] 108375 Rubi Johnson, OT [address] [address] 04/06/2025 12:30 PM [facility] [phone] Randy Maradiaga, DO [address] [place] [address] Delicia George, PT 150 [place] [address] 04/16/2025 11:00 AM CDT Therapy Visit [address] [phone] Bindu Bueno, OD [address]09 [place], [place] 074[address] Rubi Johnson, OT [address] [address] 04/23/2025 12:45 PM CDT Therapy Visit [address] [phone] Bindu Bueno, OD [address]09 [place] [address] Rubi Johnson, OT [address] [address] 04/23/2025 2:00 PM CDT Therapy Visit [address] [phone] Randy Maradiaga, DO [address] [place] [address] Delicia George, PT 150 [place] [address] 04/30/2025 10:15 AM CDT Therapy Visit [address] [phone] Randy Maradiaga, DO [address] [place] [address] Delicia George, PT 150 [facility] [place] [address] 05/04/2025 11:00 AM CDT Virtual Visit [address] [phone] Bindu Bueno, OD 909 [place] [address] Rubi Johnson, OT [address] [address] 05/07/2025 10:15 AM CDT Therapy Visit [address] [phone] Randy Maradiaga, DO [address] [place] [address] Delicia George, PT 150 [facility] [place] [address] 05/14/2025 10:15 AM CDT Therapy Visit [address] [place] [phone] Randy Maradiaga, DO [address] [place] [address] Delicia George, PT 150 [facility] [place] [address] 05/14/2025 11:00 AM CDT Therapy Visit [address] [phone] Bindu Bueno, OD [address] [place] [address] Rubi Johnson, [address] [address] 06/01/2025 11:15 AM CDT Appointment [facility] Imaging [address] [place] [phone] Robin Zepeda MD [address] [place] [address] 120185 06/02/2025 2:20 PM CDT Virtual Visit [facility] [address] [phone] Robin Zepeda MD [address] [place] [address] 467915 07/01/2025 12:00 PM CDT Virtual Visit [facility] Rehabilitation [facility] [address] [phone] [place] [address] [place] [address] [place] [address] 08/03/2025 4:30 PM INTERIOR HORTICULTURIST Virtual Visit [facility] [place] [phone] [place] [phone] Any Joiner MD [address] [facility] 276 [place], [place] [phone] documented as of this encounter Visit Diagnoses Not on filedocumented in this encounter Additional Health Concerns Infection Onset Date Last Indicated Resolved Time Rule Out COVID-19 09/13/2024 09/13/2024 09/13/2024 12:31 PM INTERIOR HORTICULTURIST Rule Out COVID-19 11/14/2024 11/14/2024 11/14/2024 8:25 PM INTERIOR HORTICULTURIST documented as of this encounter Care Teams Associate Store Director Relationship Specialty Start Date End Date Timmy Perez MD PCP - Obstetrics/Gynecology 03/02/08 08/07/15 Yung Madrigal MD RETIRED PCP - Orthopaedics Orthopedics 08/26/12 01/20/24 Winston Villatoro OD [facility] [place] [address] [place] [address] PCP - Ophthalmology Ophthalmology 02/11/13 Apple Sykes MD [facility] [place] [address] [place] [address] PCP - General Family Practice 05/04/13 10/25/16 Westley Bates MD XXX RETIRED XXX [address] [place] [address] PCP - ENT Otolaryngology 05/14/13 07/28/18 Alessandra Cabrales APRN ASSISTANT MECHANIC [address] [place] [address] [place] [address] PCP - General Nurse Practitioner 10/26/16 02/06/17 Clara Cornell MD [address] [facility] [place] [address] PCP - General Internal Medicine 02/07/17 09/20/20 Clara Cornell MD 8675 [place] [address] PCP - Assigned PCP 01/17/17 11/18/18 Denise Woodson APRN ASSISTANT MECHANIC [address] [place] [address] PCP - General Family Practice 09/21/20 Clara Cornell MD 8675 [place] [address] Assigned PCP 01/17/17 07/16/20 Denise Woodson APRN ASSISTANT MECHANIC [address] [place] [address] Assigned PCP 07/17/20 Usha Simon APRN ASSISTANT MECHANIC [address] 052635 Nurse Practitioner Neurological Surgery 01/24/24 Dangelo Salinas MD 1650 [facility] [address] [address] Neurology 01/27/24 Usha Simon APRN ASSISTANT MECHANIC [address] [place] [address] Assigned Neuroscience Provider 02/06/24 03/07/24 nAastasia Stearns, RN Lead Crown And Bridge Technician 02/06/24 12/17/24 Germaine Aleman, W Community Health Worker Primary Care - CC 02/18/24 12/17/24 Robin Zepeda MD [address] [place] [address] Assigned Neuroscience Provider 03/08/24 05/07/24 Lisa Zambrano MD 6405 [facility] [address] [place] [address] Assigned Heart and Vascular Provider 05/08/24 07/07/24 Raul Hoyos MD [address] [address] Assigned Neuroscience Provider 05/08/24 07/07/24 Joya Lira Joleen [address] [place] [address] Pharmacist Pharmacist 05/25/24 Joya Lira [facility] [address] [place] [address] Assigned MTM Pharmacist 06/08/24 Fabi Coates MD [address] [place] [address] 75 [place] [address] Genetics, Clinical 06/18/24 Robin Zepeda MD [address] [place] [address] [id number] [place] [address] Assigned Neuroscience Provider 07/08/24 08/07/24 Danna Cardenas PA-C 6405 [place] [address] Assigned Heart and Vascular Provider 07/08/24 12/05/24 Felicita Desai, RN Lead Crown And Bridge Technician 07/14/24 07/28/24 Arthur Salas [facility] [address] [place] [address] Assigned Behavioral Health Provider 08/08/24 Randy Maradiaga DO [address] [place] [address] Assigned Neuroscience Provider 08/08/24 Tete Wang MD [address] [place] [address] Genetics, Clinical 10/30/24 Dahlia Joyce MD [address] [place] [address] Radiology Neuroradiology 11/17/24 Lisa Zambrano MD [address] [address] Assigned Heart and Vascular Provider 12/06/24 Tete Wang MD [address] [place] [address] Assigned Pediatric Specialist Provider 01/06/25 Any Joiner MD [address] [place] [address] [id number] Assigned Pulmonology Provider 02/05/25 documented as of this encounter
--- OUTSIDE RECORDS SUMMARY | 2025-03-09 12:23 | XMS_ITS | Encounter Summary ---
Author Organization [employer] Address [address] [place] [address] Care Team Providers Care Regulatory Specialist Name Role Phone Yung Madrigal MD Unavailable Unavailable Winston Villatoro OD Unavailable [phone] Denise Woodson APRN RECONNAISSANCE MAN Unavailable [phone] Denise Woodson APRN RECONNAISSANCE MAN Primary Care Provider Usha Simon APRN RECONNAISSANCE MAN Unavailable Dangelo Salinas MD Unavailable Usha Simon APRN RECONNAISSANCE MAN Unavailable Anastasia Stearns RN Unavailable Germaine Aleman CHW Unavailable [phone] Robin Zepeda MD Unavailable [phone] Lisa Zambrano MD Unavailable Raul Hoyos MD Unavailable [phone] Joya Lira [facility] Unavailable [phone] Joya Lira RPJoleen Unavailable Fabi Coates MD Unavailable [phone] Robin Zepeda MD Unavailable [phone] Danna Cardenas PA-C Unavailable +[phone] Felicita Desai RN Unavailable Unavailab Arthur RiosSW Unavailable +[phone] Randy Maradiaga DO Unavailable + Tete Wang MD Unavailable [phone] Dahlia Joyce MD Unavailable +[phone] Lisa Zambrano MD Unavailable + [phone] Tete Wang MD Unavailable [phone] Any Joiner MD Unavailable [phone] Encounter Details Date Type Department Care Team (Late st Contact Info) Description 01/10/2023 MyC Medical Advice [address] [phone] Arianna Lo Social History Tobacco [...] on file 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 Gender Identity Not on file [...] Description 03/16/2025 8:00 AM CDT Virtual Visit [facility] Rehabilitation Services [address] [phone] Bindu Bueno, OD [address] [place], [place] 3[address] Rubi Johnson, OT [facility] 150 [place], [place] 303567 03/26/2025 12:45 PM CDT Therapy Visit [facility] 150 [place] [phone] Bindu Bueno, OD [address]09 [place] [address] Rubi Johnson, OT [address] [address] 04/02/2025 9:30 AM CDT Therapy Visit [address] [phone] Randy Maradiaga, DO [address] [place] [address] 144305 Delicia George, PT 150 [place] [address] 04/06/2025 11:00 AM CDT Virtual Visit [address] [phone] Bindu Bueno, OD [address]09 [place] [address] Rubi Johnson, OT [address] [address] 04/06/2025 12:30 PM CDT Therapy Visit [address] [phone] Randy Maradiaga, DO [address] [place] [address] Delicia George, PT 150 [place] [address] 04/16/2025 11:00 AM CDT [facility] 150 [place] [phone] BuenoBindu, OD [address]09 [place], [place] 0[address] Rubi Johnson, OT [address] 023457 04/23/2025 12:45 PM CDT Therapy Visit [address] [phone] Bindu Bueno, OD [address]09 [place] [address] Rubi Johnson, OT [address] [address] 04/23/2025 2:00 PM CDT Therapy Visit [address] [phone] Randy Maradiaga, DO 909 [place] [address] Delicia George, PT 150 [place] [address] 04/30/2025 10:15 AM CDT Therapy Visit [address] [phone] Randy Maradiaga, DO [address] [place] [address] Delicia George, PT 150 [facility] [place] [place] [address] 05/04/2025 11:00 AM CDT Virtual Visit [address] [phone] Myles Bindu, OD [address]09 [place] [address] Rubi Johnson, [address] [address] 05/07/2025 10:15 AM CDT Therapy Visit [address] [phone] Randy Maradiaga, DO [address] [place] [address] Delicia George, PT 150 [place] [address] 05/14/2025 10:15 AM CDT Therapy Visit [address] [phone] Randy Maradiaga, DO [address] [place] [address] Delicia George, PT 150 [place] [address] 05/14/2025 11:00 AM CDT Therapy Visit [facility] Rehabilitation Services [facility] 150 [place] [phone] Myles Bindu, OD [address]09 [place] [address] Rubi Johnson, OT [facility] 150 [place] [address] 06/01/2025 11:[address] [facility] Imaging [address] [place] [phone] Robin Zepeda MD [address] [place] [address] 020725 06/02/2025 2:20 PM CDT Virtual Visit [facility] Neurosurgery Clinic [address] [phone] Robin Zepeda MD [address] [place] [address] 866305 07/01/2025 12:00 PM CDT Virtual Visit [facility] Physical Medicine [facility] Rehabilitation Clinic [address] [phone] [place], PANilesC [address] [place] [address] 246095 08/03/2025 4:30 PM PUNCHBOARD FILLING MACHINE OPERATOR Virtual Visit [facility] [address] [phone] Any Joiner MD [address] [place] [address] 176645 documented as of this encounter Visit Diagnoses Not on filedocumented in this encounter Additional Health Concerns Infection Onset Date Last Indicated Resolved Time Rule Out COVID-19 09/13/2024 09/13/2024 09/13/2024 12:31 PM PUNCHBOARD FILLING MACHINE OPERATOR Rule Out COVID-19 11/14/2024 11/14/2024 11/14/2024 8:25 PM PUNCHBOARD FILLING MACHINE OPERATOR Assessment Noted Time PHQ-9 Depression Total Score: 0 06/23/20 21 4:11 PM CDT documented as of this encounter Care Teams Regulatory Specialist Relationship Specialty Start Date End Date Yung Madrigal MD RETIRED PCP - Orthopaedics Orthopedics 08/26/12 01/20/24 Winston Villatoro OD [facility] [place] [address] [place], [place] [phone] PCP - Ophthalmology Ophthalmology 02/11/13 Denise Woodson APRN RECONNAISSANCE MAN [address] [facility] [address] PCP - General Family Practice 09/21/20 Denise Woodson APRN RECONNAISSANCE MAN [address] [place] [address] Assigned PCP 07/17/20 Usha Simon APRN RECONNAISSANCE MAN 909 [facility]121[address]J [place] [address] Nurse Practitioner Neurological Surgery 01/24/24 Dangelo Salinas MD [address] [place] [address] Neurology 01/27/24 Usha Simon APRN RECONNAISSANCE MAN [address] [place] [address] Assigned Neuroscience Provider 02/06/24 03/07/24 Anastasia Stearns, RN Lead Career Manager 02/06/24 12/17/24 Germaine Aleman, W Community Health Worker Primary Care - CC 02/18/2412/17/24 Robin Zepeda MD [address] [place] [address] Assigned Neuroscience Provider 03/08/24 05/07/24 Lisa Zambrano MD 6405 [facility] [address] [place] [address] Assigned Heart and Vascular Provider 05/08/24 07/07/24 Raul Hoyos MD [address] [place] [address] Assigned Neuroscience Provider 05/08/24 07/07/24 Joya Lira Joleen [address] [place] [address] Pharmacist Pharmacist 05/25/24 Joya Lira Joleen [address] [place] [address] Assigned MTM Pharmacist 06/08/24 Fabi Coates MD [address] [place] [address] 75 [place] [address] Genetics, Clinical 06/18/24 Robin Zepeda MD 909 [facility] [id number] [place] [address] Assigned Neuroscience Provider 07/08/24 08/07/24 Danna Cardenas PA-C 6405 [place] [address] Assigned Heart and Vascular Provider 07/08/24 12/05/24 Felicita Desai, GEMA Lead Career Manager 07/14/24 07/28/24 Arthur Salas [facility]. [address] [place] [address] Assigned Behavioral Health Provider 08/08/24 Randy Maradiaga DO [address] [place] [address] Assigned Neuroscience Provider 08/08/24 Tete Wang MD [address] [place] [address] 734674 Genetics, Clinical 10/30/24 Dahlia Joyce MD [address] [place] [address] Radiology Neuroradiology 11/17/24 Lisa Zambrano MD [address] [facility] [address] [place] [address] Assigned Heart and Vascular Provider 12/06/24 Tete Wang MD [address] [place] [address] 811874 Assigned Pediatric Specialist Provider 01/06/25 Any Joiner MD [address] [place] [address] [id number] Assigned Pulmonology Provider 02/05/25 documented as of this encounter
--- OUTSIDE RECORDS SUMMARY | 2025-03-09 12:23 | XMS_ITS | Encounter Summary ---
Author Organization [facility] Address [address] [place] [address] Care Team Providers Care Radiological Defense Officer Name Role Phone Winston Villatoro OD Unavailable [phone] Denise Woodson APRN SUPERVISOR PUTTY AND CALUKING Unavailable [phone] Denise Woodson APRN SUPERVISOR PUTTY AND CALUKING Primary Care Provider Usha Simon APRN SUPERVISOR PUTTY AND CALUKING Unavailable + [phone] Dangelo Salinas MD Unavailable Anastasia Stearns RN Unavailable Germaine Aleman CHW Unavailable +[phone] Joya Lira RP Unavailable [phone] Joya Lira RP Unavailable Fabi Coates MD Unavailable [phone] Danna CardenasC Unavailable +[phone] SinanselmoledyArthur PSYCHOLOGY INSTRUCTOR Unavailable +[phone] Randy Maradiaga DO Unavailable + Tete Wang MD Unavailable [phone] Dahlia Joyce MD Unavailable [phone] Lisa Zambrano MD Unavailable + [phone] Tete Wang MD Unavailable +[phone] Any Joiner MD Unavailable Reason for Visit * Reason Onset Date Comments Pt. Information/instruction 11/09/2024 Encounter Details Date Type Department Care Team (Late st Contact Info) Description 11/09/2024 Telephone [facility] [address] [place] [address] Denise Woodson APRN [facility] [address] [place] [address] Pt. Information/instructio n Social History Tobacco Use Types Packs/Day Years [...] How often do you attend evangelical or taoism serv ices? 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 Not on file Not on file Not on file Not on file Not on file Not on file documented as of this encounter Miscellaneous Notes * Telephone Encounter - Eli Colvin - 11/09/2024 10:08 AM CST General Call Reason for Call: update What are your questions or concerns: Patient has an appointment virtually tomorrow with [facility] and also has one schedule for 11/17/24 with primary and wanted to let primary know she would like to keep her 11/17/24 appointment Date of last appointment with provider: n/a Could we [facility] this [facility] or would you prefer to receive a phone call?: No preference Okay to leave a detailed message?: N/A at Cell number on file: Telephone Information: TENDER documented in this encounter Plan of Treatment Upcoming Encounters Date Type Department Care Team (Late st Contact Info) Description 03/16/2025 8:00 AM CDT Virtual Visit [facility] 150 [place] [phone] Bindu Bueno, OD 909 [place], [place] 9[address]165 Rubi Johnson, OT [facility] 150 [place] [address] 03/26/2025 12:45 PM CDT Therapy Visit [facility] 150 [place] [phone] BuenoMagaliBindu, OD 909 [place], [place] 356375 Rubi Johnson, OT [facility] 150 [place] [address] 04/02/2025 9:30 AM CDT Therapy Visit [address] [phone] Randy Maradiaga, [place] [address] [place] [address] Delicia George, PT 150 [facility] [place] [address] 04/06/2025 11:00 AM CDT Virtual Visit [address] [phone] Bindu Bueno, OD 909 [place], [place] 7[address] Rubi Johnson, [address] [address] 04/06/2025 12:30 PM CDT Therapy Visit [address] [phone] Randy Maradiaga, DO [address] [place] [address] Delicia George, PT 150 [facility] [place] [address] 04/16/2025 11:00 AM CDT Therapy Visit [address] [phone] Bindu Bueno, OD 909 [place], [place] [address] Rubi Johnson, OT [facility] [address] [address] 04/23/2025 12:45 PM CDT Therapy Visit [address] [phone] Bindu Bueno, OD 909 [place] [address] Rubi Johnson, OT [address] [address] 04/23/2025 2:00 PM CDT Therapy Visit [address] [phone] Randy Maradiaga, DO [address] [place] [address] Delicia George, PT 150 [place] [address] 04/30/2025 10:15 AM CDT Therapy Visit [address] [phone] Randy Maradiaga, DO [address] [place] [address] Delicia George, PT 150 [place] [address] 05/04/2025 11:00 AM CDT Virtual Visit [address] [phone] Bindu Bueno, OD 909 [place] [address] Rubi Johnson, OT [facility] 150 [place] [address] 05/07/2025 10:15 AM CDT Therapy Visit [facility] 150 [place] [phone] Randy Maradiaga, DO [address] [place] [address] Delicia George, PT 150 [facility] [place] [address] 05/14/2025 10:15 AM CDT Therapy Visit [address] [phone] Randy Maradiaga, DO [address] [place] [address] Delicia George, PT 150 [facility] [place] [address] 05/14/2025 11:00 AM CDT Therapy Visit [facility] 150 [place] [phone] Bindu Bueno, OD 909 [place] [address] Rubi Johnson, OT [facility] 150 [place] [address] 06/01/2025 11:15 AM CDT Appointment [facility] [address] [place] [phone] Robin Zepeda MD [address] [place] [address] 7[address] 06/02/2025 2:20 PM CDT Virtual Visit [facility] [address] [phone] Robin Zepeda MD [address] [place] [address] 983825 07/01/2025 12:00 PM CDT Virtual Visit [facility] [address] [phone] [place], PA-C [address] [place] [address] 731505 08/03/2025 4:30 PM CAMP TENDER Virtual Visit [facility] [address] [phone] Any Joiner MD [address] [place] [address] 387525 documented as of this encounter Visit Diagnoses Not on filedocumented in this encounter Additional Health Concerns Infection Onset Date Last Indicated Resolved Time Rule Out COVID-19 11/14/2024 11/14/2024 11/14/2024 8:25 PM CAMP TENDER Assessment Noted Time PHQ-9 Depression Total Score: 0 09/18/19 12:46 PM CAMP TENDER documented as of this encounter Care Teams Radiological Defense Officer Relationship Specialty Start Date End Date Winston Villatoro OD [facility] [place] [address] [place] [address] [address] [place] [address] PCP - Ophthalmology Ophthalmology 02/11/13 Denise Woodson APRN SUPERVISOR PUTTY AND CALUKING [address] [place] [address] PCP - General Family Practice 09/21/20 Denise Woodson APRN SUPERVISOR PUTTY AND CALUKING [address] [place] [address] Assigned PCP 07/17/20 Usha Simon APRN SUPERVISOR PUTTY AND CALUKING [address] [place] [address], [place] [address] Nurse Practitioner Neurological Surgery 01/24/24 Dangelo Salinas MD [address] [place] [address] Neurology 01/27/24 Anastasia Stearns, RN Lead Director Call Center Sales 02/06/24 12/17/24 Germaine Aleman, W Community Health Worker Primary Care - CC 02/18/2412/17/24 Joya Lira RPH [address] [address] Pharmacist Pharmacist 05/25/24 Joya Lira RPH [address] [place] [address] Assigned MTM Pharmacist 06/08/24 Fabi Coates MD [address] [place] [address] 75 [place] [address] Genetics, Clinical 06/18/24 Danna Cardenas PA-C 6405 [place] [address] Assigned Heart and Vascular Provider 07/08/24 12/05/24 Arthur Salas [facility] [address] [address] Assigned Behavioral Health Provider 08/08/24 Randy Maradiaga DO [address] [place] [address] Assigned Neuroscience Provider 08/08/24 Tete Wang MD [address] [place] [address] Genetics, Clinical 10/30/24 Dahlia Joyce MD [address] [place] [address] Radiology Neuroradiology 11/17/24 Lisa Zambrano MD [address] [address] Assigned Heart and Vascular Provider 12/06/24 Tete Wang MD [address] [place] [address] Assigned Pediatric Specialist Provider 01/06/25 Any Joiner MD [address] [place] [address] 526675 Assigned Pulmonology Provider 02/05/25 documented as of this encounter
--- OUTSIDE RECORDS SUMMARY | 2025-03-09 12:23 | XMS_ITS | Encounter Summary ---
Author Organization [facility] Address [address] [place] [address] Care Team Providers Care Retail Area Manager Name Role Phone Yung Madrigal MD Unavailable Unavailable Winston Villatoro OD Unavailable [phone] Denise Woodson APRN INSECTICIDE EXPERT Unavailable [phone] Denise Woodson APRN INSECTICIDE EXPERT Primary Care Provider Usha Simon APRN INSECTICIDE EXPERT Unavailable Dangelo Salinas MD Unavailable Usha Simon APRN INSECTICIDE EXPERT Unavailable Anastasia Stearns RN Unavailable Germaine Aleman CHW Unavailable [phone] Robin Zepeda MD Unavailable Lisa Zambrano MD Unavailable Raul Hoyos MD Unavailable Joya Lira [facility] Unavailable [phone] Joya Lira RPJoleen Unavailable +[phone] Fabi Coates MD Unavailable [phone] Robin Zepeda MD Unavailable [phone] Danna Cardenas PA-C Unavailable [phone] Felicita Desai RN Unavailable Unavailab Arthur RiosSW Unavailable [phone] Randy Maradiaga DO Unavailable + Tete Wang MD Unavailable [phone] aDhlia Joyce MD Unavailable +[phone] Lisa Zambrano MD Unavailable + [phone] Tete Wang MD Unavailable [phone] Any Joiner MD Unavailable [phone] Reason for Visit * Reason Onset Date Comments MyChart Communication 06/08/2021 Abdominal pain Encounter Details Date Type Department Care Team (Late st Contact Info) Description 06/08/2021 MyC Medical Advice [facility] [address] [place] [address] Denise Woodson APRN [facility] [address] [place] [address] MyChart Communication (Abdominal pain) Social [...] on file 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 Gender Identity Not on file Sexual Orientation Not on file 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 Not on file Not on file Not on file Not on file Not on file Not on file documented as of this encounter Plan of Treatment Upcoming Encounters Date Type Department Care Team (Late st Contact Info) Description 03/16/2025 8:00 AM CDT Virtual Visit [address] [phone] Bindu Bueno, OD 909 [place] [address] Rubi Johnson, OT [address] [address] 03/26/2025 12:45 PM CDT Therapy Visit [address] [phone] Magali Buenoissa, OD 909 [place] [address] Rubi Johnson, OT [address] [address] 04/02/2025 9:30 AM CDT Therapy Visit [address] [phone] Randy Maradiaga, DO 909 [place] [address] Delicia George, PT 150 [place] [address] 04/06/2025 11:00 AM CDT Virtual Visit [address] [phone] Bindu Bueno, OD 909 [place] [address] Rubi Johnson, OT [address] [address] 04/06/2025 12:30 PM CDT Therapy Visit [facility] 150 [place] [address] Randy Maradiaga, DO [address] [place] [address] Delicia George, PT 150 [facility] [address] 04/16/2025 11:00 AM CDT Therapy Visit [address] [phone] Magali Buenoissa, OD [address] [place] [address] Rubi Johnson, OT [address] [address] 04/23/2025 12:45 PM CDT Therapy Visit [address] [phone] Bindu Bueno, OD 909 [place] [address] Rubi Johnson, OT [address] [address] 04/23/2025 2:00 PM CDT Therapy Visit [address] [phone] Randy Maradiaga, DO [address] [place] [address] Delicia George, PT 150 [place] [address] 04/30/2025 10:15 AM CDT Therapy Visit [address] [phone] Randy Maradiaga, DO [address] [place] [address] 944335 Delicia George, PT 150 [place] [address] 05/04/2025 11:00 AM CDT Virtual Visit [address] [phone] Bindu Bueno, OD 909 [place], [place] [address] Rubi Johnson, OT [address] [address] 05/07/2025 10:15 AM CDT Therapy Visit [address] [phone] Randy Maradiaga, DO [address] [place] [address] Delicia George, PT 150 [place], [place] 458187 05/14/2025 10:15 AM CDT Therapy Visit [address] [phone] Randy Maradiaga, DO [address] [place] [address] Delicia George, PT 150 [place] [address] 05/14/2025 11:00 AM CDT Therapy Visit [facility] [address] [phone] Bindu Bueno, OD 9 [place] [address] Rubi Johnson, OT [address] [address] 06/01/2025 11:15 AM CDT Appointment [facility] [address] [facility] [address] [place] [phone] Robin Zepeda MD [address] [place] [address] 06/02/2025 2:20 PM CDT Virtual Visit [facility] [address] [phone] Robin Zepeda MD [address] [place] [address] 07/01/2025 12:00 PM CDT Virtual Visit [facility] [address] [phone] Santa Menon PANilesC [address] [place] [address] 08/03/2025 4:30 PM ACOUSTICS TEACHER Virtual Visit [facility] [place] 909 [place] [address] Any Joiner MD 420 [facility] 276 [place] [address] documented as of this encounter Visit Diagnoses Not on filedocumented in this encounter Additional Health Concerns Infection Onset Date Last Indicated Resolved Time Rule Out COVID-19 09/13/2024 09/13/2024 09/13/2024 12:31 PM ACOUSTICS TEACHER Rule Out COVID-19 11/14/2024 11/14/2024 11/14/2024 8:25 PM ACOUSTICS TEACHER Assessment Noted Time PHQ-9 Depression Total Score: 0 01/05/20 9:31 AM CDT documented as of this encounter Care Teams Retail Area Manager Relationship Specialty Start Date End Date Yung Madrigal MD RETIRED PCP - Orthopaedics Orthopedics 08/26/12 01/20/24 Winston Villatoro OD [facility] [place] [address] [facility] [address] [place] [address] PCP - Ophthalmology Ophthalmology 02/11/13 Denise Woodson APRN INSECTICIDE EXPERT [address] [place] [address] PCP - General Family Practice 09/21/20 Denise Woodson APRN INSECTICIDE EXPERT [address] [place] [address] Assigned PCP 07/17/20 Usha Simon APRN INSECTICIDE EXPERT 9 [facility] [id number] [address] Nurse Practitioner Neurological Surgery 01/24/24 Dangelo Salinas MD [address] [place] [address] Neurology 01/27/24 Usha Simon APRN INSECTICIDE EXPERT [address] [address] Assigned Neuroscience Provider 02/06/24 03/07/24 Anastasia Stearns, RN Lead Tap Builder 02/06/24 12/17/24 Germaine Aleman, W Community Health Worker Primary Care - CC 02/18/2412/17/24 Robin Zepeda MD [address] [address] Assigned Neuroscience Provider 03/08/24 05/07/24 Lisa Zambrano MD [address] [place] [address] Assigned Heart and Vascular Provider 05/08/24 07/07/24 Raul Hoyos MD [address] [address] Assigned Neuroscience Provider 05/08/24 07/07/24 Joya Lira RPH [address] [place] [address] Pharmacist Pharmacist 05/25/24 Joya Lira RPH [address] [place] [address] Assigned MTM Pharmacist 06/08/24 Fabi Coates MD 420 [facility] 75 [place], [place] [address] Genetics, Clinical 06/18/24 Robin Zepeda MD [address] [place] [address] [id number] [place], [place] 249925 Assigned Neuroscience Provider 07/08/24 08/07/24 Danna Cardenas PA-C [address] [place] [address] Assigned Heart and Vascular Provider 07/08/24 12/05/24 Felicita Desai RN Lead Tap Builder 07/14/24 07/28/24 Arthur Salas, [facility] [address] [place] [address] Assigned Behavioral Health Provider 08/08/24 Randy Maradiaga DO [address] [place] [address] Assigned Neuroscience Provider 08/08/24 Tete Wang MD [address] [place] [address] 047764 Genetics, Clinical 10/30/24 Dahlia Joyce MD [address] [place] [address] Radiology Neuroradiology 11/17/24 Lisa Zambrano MD 6405 [facility] [address] [place] [address] Assigned Heart and Vascular Provider 12/06/24 Tete Wang MD [facility] [place], [place] 253584 Assigned Pediatric Specialist Provider 01/06/25 Any Joiner MD [address] [place] [address] 276 [place], [place] 165285 Assigned Pulmonology Provider 02/05/25 documented as of this encounter
--- OUTSIDE RECORDS SUMMARY | 2025-03-09 12:23 | XMS_ITS | Encounter Summary ---
Author Organization [place] Address [address] [place] [address] Care Team Providers Care Patient Flow Coordinator Name Role Phone Winston Villatoro OD Unavailable [phone] Denise Woodson APRN TENT WORKER Unavailable [phone] Denise Woodson APRN TENT WORKER Primary Care Provider Usha Simon APRN TENT WORKER Unavailable + [phone] Dangelo Salinas MD Unavailable Anastasia Stearns RN Unavailable Germaine Aleman CHW Unavailable [phone] Joya Lira RP Unavailable [phone] Joya Lira RP Unavailable [phone] Fabi Coates MD Unavailable [phone] Danna CardenasC Unavailable [phone] SinanselmoledyArthur IT TECHNICAL SPECIALIST Unavailable [phone] Randy Maradiaga DO Unavailable + Tete Wang MD Unavailable [phone] Dahlia Joyce MD Unavailable [phone] Lisa Zambrano MD Unavailable + [phone] Tete Wang MD Unavailable +[phone] Any Joiner MD Unavailable Encounter Details Date Type Department Care Team (Late st Contact Info) Description 08/11/2024 MyC Medical Advice [facility] [place] [address] [place] [address] Arthur Salas, [facility] [address] [place] [address] Social History Tobacco Use Types Packs/Day Years [...] How often do you attend baptist or sikh serv ices? 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 Gender Identity Not on file Sexual [...] Description 03/16/2025 8:00 AM CDT Virtual [facility] 150 [place] [phone] Bindu Bueno, OD 909 [place], [place] 336305 Rubi Johnson, OT [address] [address] 03/26/2025 12:45 PM CD[facility] [address] [phone] Bindu Bueno, OD 909 [place] [address] Rubi Johnson, OT [address] [address] 04/02/2025 9:30 AM CDT Therapy Visit [address] [phone] Randy Maradiaga, DO 909 [place] [address] Delicia George, PT [address] [facility] [place], [place] 691307 04/06/2025 11:00 AM CDT Virtual Visit [address] [phone] Bindu Bueno, OD 909 [place] [address] Rubi Johnson, OT [address] [address] 04/06/2025 12:30 PM CDT Therapy Visit [address] [phone] Randy Maradiaga, DO 909 [place] [address] Delicia George, PT 150 [place] [address] 04/16/2025 11:00 AM CDT Therapy Visit [address] [phone] Bindu Bueno, OD 909 [place] [address] Rubi Johnson, OT [address] [address] 04/23/2025 12:45 PM CDT Therapy Visit [facility] 150 [place] [phone] Bindu Bueno, OD 909 [place] [address] Rubi Johnson, OT [address] [address] 04/23/2025 2:00 PM CDT Therapy Visit [address] [phone] Randy Maradiaga, DO [address] [place] [address] Delicia George, PT 150 [place] [address] 04/30/2025 10:15 AM CDT Therapy Visit [address] [phone] Randy Maradiaga, DO [address] [place] [address] Delicia George, PT [address] [place] [address] 05/04/2025 11:00 AM CDT Virtual Visit [address] [phone] Bindu Bueno, OD 909 [place] [address] Rubi Johnson, [address] [address] 05/07/2025 10:15 AM CDT Therapy Visit [address] [phone] Randy Maradiaga, DO [address] [place] [address] 9[address]65 Delicia George, PT 150 [place] [address] 05/14/2025 10:15 AM CDT Therapy Visit [address] [phone] Randy Maradiaga DO [address] [place] [address] Delicia George, PT 150 [place] [address] 05/14/2025 11:00 AM CDT Therapy Visit [address] [phone] Bindu Bueno, OD [address] [place] [address] 293355 Rubi Johnson, [address] [address] 06/01/2025 11:[address] [facility] Imaging [address] [place] [phone] Robin Zepeda MD [address] [place] [address] 06/02/2025 2:20 PM CDT Virtual Visit [facility] [address] 3rd [place] [phone] Robin Zepeda MD [address] [place] [address] 920275 07/01/2025 12:00 PM CDT Virtual Visit M [facility] [address] 3rd [place] [address] Santa Menon PA-C [address] [place] [address] 08/03/2025 4:30 PM ALCOHOL STILL OPERATOR [facility] [address] [phone] Any Joiner MD 420 [facility] 276 [place] [address] documented as of this encounter Visit Diagnoses Not on filedocumented in this encounter Additional Health Concerns Infection Onset Date Last Indicated Resolved Time Rule Out COVID-19 09/13/2024 09/13/2024 09/13/2024 12:31 PM ALCOHOL STILL OPERATOR Rule Out COVID-19 11/14/2024 11/14/2024 11/14/2024 8:25 PM ALCOHOL STILL OPERATOR Assessment Noted Time PHQ-9 Depression Total Score: 5 08/03/20 24 12:49 PM ALCOHOL STILL OPERATOR documented as of this encounter Care Teams Patient Flow Coordinator Relationship Specialty Start Date End Date Winston Villatoro OD [facility] [place] [address] [place] [address] PCP - Ophthalmology Ophthalmology 02/11/13 Denise Woodson APRN TENT WORKER [address] [address] PCP - General Family Practice 09/21/20 Denise Woodson APRN TENT WORKER [address] [address] Assigned PCP 07/17/20 Usha Simon APRN TENT WORKER 909 [facility] [place] [id number] [place] [address] Nurse Practitioner Neurological Surgery 01/24/24 Dangelo Salinas MD [address] [place] [address] Neurology 01/27/24 Anastasia Stearns, RN Lead Special Educator 02/06/24 12/17/24 Germaine Aleman, W Community Health Worker Primary Care - CC 02/18/2412/17/24 Joya Lira [facility] [address] [place] [address] Pharmacist Pharmacist 05/25/24 Joya Lira [facility] [address] [place] [address] Assigned MTM Pharmacist 06/08/24 Fabi Coates MD [address] [place] [address] 75 [place] [address] Genetics, Clinical 06/18/24 Danna Cardenas PA-C 6405 [place] [address] Assigned Heart and Vascular Provider 07/08/24 12/05/24 Arthur Salas LIC[facility] [address] [address] Assigned Behavioral Health Provider 08/08/24 Randy Maradiaga DO [address] [place] [address] Assigned Neuroscience Provider 08/08/24 Tete Wang MD [address] [place] [address] 988834 Genetics, Clinical 10/30/24 Dahlia Joyce MD [address] [place] [address] 905425 Radiology Neuroradiology 11/17/24 [place] [address] [place] [address] 106405 Assigned Heart and Vascular Provider 12/06/24 Tete Wang MD [address] [place] [address] 269384 Assigned Pediatric Specialist Provider 01/06/25 Any Joiner MD [address] [place] [address] 611915 Assigned Pulmonology Provider 02/05/25 documented as of this encounter
--- OUTSIDE RECORDS SUMMARY | 2025-03-09 12:23 | XMS_ITS | Encounter Summary ---
Author Organization [place] Address [address] [place] [address] Care Team Providers Care Machinery Mechanic Name Role Phone Yung Madrigal MD Unavailable Unavailable Winston Villatoro OD Unavailable [phone] Denise Woodson APRN OYSTER BUYER Unavailable [phone] Denise Woodson APRN OYSTER BUYER Primary Care Provider Usha Simon APRN OYSTER BUYER Unavailable Dangelo Salinas MD Unavailable Usha Simon APRN OYSTER BUYER Unavailable Anastasia Stearns RN Unavailable Germaine Aleman CHW Unavailable [phone] Robin Zepeda MD Unavailable Lisa Zambrano MD Unavailable Raul Hoyos MD Unavailable Joya Lira [facility] Unavailable [phone] Joya Lira RPJoleen Unavailable Fabi Coates MD Unavailable [phone] Robin Zepeda MD Unavailable Danna Cardenas PA-C Unavailable [phone] Felicita Desai RN Unavailable Unavailab Arthur RiosSW Unavailable +[phone] LaronRandy bucio Yobany MARTIN Unavailable + Tete Wang MD Unavailable [phone] Dahlia Joyce MD Unavailable [phone] Lisa Zambrano MD Unavailable + [phone] Tete Wang MD Unavailable [phone] Any Joiner MD Unavailable [phone] Encounter Details Date Type Department Care Team (Late st Contact Info) Description 01/22/2022 MyC Medical Advice [address] [address] Angeol Escobar Social History Tobacco Use Types Packs/Day Years Used Date Smoking Tobacco: Never Smokeless Tobacco: Never Alcohol Use Standard Drinks/Week Comments Not Currently 0 (1 standard drink = 0.6 oz pur e alcohol) minimal PHQ-2 Answer Date Recorded PHQ-2 Score 0 07/27/2021 Comments No Sex and Gender Information Value Date Recorded Sex Assigned at Not on file 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 Gender Identity Not on file Sexual [...] Description 03/16/2025 8:00 AM CDT Virtual Visit [address] [address] Bindu Bueno, OD 909 [place] [address] Rubi Johnson, OT [address] [address] 03/26/2025 12:45 PM CDT Therapy Visit [address] [phone] Bindu Bueno, OD 909 [place] [address] Rubi Johnson, OT [address] [address] 04/02/2025 9:30 AM CDT Therapy Visit [address] [phone] Randy Maradiaga, DO 909 [place] [address] Delicia George, PT 150 [place] [address] 04/06/2025 11:00 AM CDT Virtual Visit [address] [phone] Bueno Bindu, OD 909 [place] [address] Rubi Johnson, OT [address] [address] 04/06/2025 12:30 PM CDT Therapy Visit [address] [address] [place]adi[place], DO [address] [place] [address] Delicia George, PT 150 [facility] [place] [address] 04/16/2025 11:00 AM CDT Therapy Visit [address] [phone] Bindu Bueno, OD 9 [place] [address] Rubi Johnson, OT [address] [address] 04/23/2025 12:45 PM CDT Therapy Visit [address] [phone] Bindu Bueno, OD 909 [place] [address] Rubi Johnson, OT [address] [address] 04/23/2025 2:00 PM CDT Therapy Visit [address] [phone] Randy Maradiaga, DO [address] [place] [address] Delicia George, PT 150 [place] [address] 04/30/2025 10:15 AM CDT Therapy Visit [address] [phone] Randy Maradiaga, DO [address] [place] [address] Delicia George, PT 150 [facility] [place] [address] 05/04/2025 11:00 AM CDT Virtual Visit [address] [phone] Bindu Bueno, OD 9 [place] [address] Rbui Johnson, OT [address] [address] 05/07/2025 10:15 AM CDT Therapy Visit [address] [phone] Randy Maradiaga, DO [address] [place] [address] Delicia George, PT 150 [facility] [place] [address] 05/14/2025 10:15 AM CDT Therapy Visit [address] [phone] Randy Maradiaga, DO [address] [place] [address] Delicia George, PT 150 [place] [address] 05/14/2025 11:00 AM CDT Therapy Visit [facility] Rehabilitation Services [address] [phone] Bindu Bueno, OD 909 [place] [address] Rubi Johnson, [address] [address] 06/01/2025 11:15 AM CDT Appointment [facility] Specialty Care Center Imaging [address] [place] [address] [place] [phone] Robin Zepeda MD [address] [place] [address] 251615 06/02/2025 2:20 PM CDT Virtual Visit [facility] Neurosurgery Clinic [address] [phone] Robin Zepeda MD [address] [place] [address] 07/01/2025 12:00 PM CDT Virtual Visit [facility] Physical Medicine and Rehabilitation Clinic [address] [phone] Santa Menon, PA-C [address] [place] [address] 823155 08/03/2025 4:30 PM SPECIAL EDUCATION MATH TEACHER Virtual Visit [facility] [place] [address] [place] [address] Any Joiner MD 420 [facility] 276 [place] [address] documented as of this encounter Visit Diagnoses Not on filedocumented in this encounter Additional Health Concerns Infection Onset Date Last Indicated Resolved Time Rule Out COVID-19 09/13/2024 09/13/2024 09/13/2024 12:31 PM SPECIAL EDUCATION MATH TEACHER Rule Out COVID-19 11/14/2024 11/14/2024 11/14/2024 8:25 PM SPECIAL EDUCATION MATH TEACHER Assessment Noted Time PHQ-9 Depression Total Score: 0 06/23/20 4:11 PM CDT documented as of this encounter Care Teams Machinery Mechanic Relationship Specialty Start Date End Date Yung Madrigal MD RETIRED PCP - Orthopaedics Orthopedics 08/26/12 01/20/24 Winston Villatoro OD [facility] [place] 701 [facility] [address] [place] [address] PCP - Ophthalmology Ophthalmology 02/11/13 Denise Woodson APRN OYSTER BUYER [address] [place] [address] PCP - General Family Practice 09/21/20 Denise Woodson APRN OYSTER BUYER [address] [place] [address] Assigned PCP 07/17/20 Usha Simon APRN OYSTER BUYER 909 [facility] [id number] [place] [address] Nurse Practitioner Neurological Surgery 01/24/24 Dangelo Salinas MD [address] [place] [address] Neurology 01/27/24 Usha Simon APRN OYSTER BUYER [address] [address] Assigned Neuroscience Provider 02/06/24 03/07/24 Anastasia Stearns, RN Lead Fuel Truck Driver 02/06/24 12/17/24 Germaine Aleman, W Community Health Worker Primary Care - CC 02/18/2412/17/24 Robin Zepeda MD [address] [address] Assigned Neuroscience Provider 03/08/24 05/07/24 Lisa Zambrano MD [address] [facility] [address] [address] [place] [address] Assigned Heart and Vascular Provider 05/08/24 07/07/24 Raul Hoyos MD [address] [address] Assigned Neuroscience Provider 05/08/24 07/07/24 Joya Lira RPH [address] [place] [address] Pharmacist Pharmacist 05/25/24 Joya Lira RPH [address] [place] [address] Assigned MTM Pharmacist 06/08/24 Fabi Coates MD [address] [place] [address] 75 [place] [address] Genetics, Clinical 06/18/24 Robin Zepeda MD [address] [place] [address] [id number] [place] [address] Assigned Neuroscience Provider 07/08/24 08/07/24 Danna Cardenas PA-C 6405 [place] [address] Assigned Heart and Vascular Provider 07/08/24 12/05/24 Felicita Desai RN Lead Fuel Truck Driver 07/14/24 07/28/24 Arthur Salas [facility] [address] [place] [address] Assigned Behavioral Health Provider 08/08/24 Randy Maradiaga DO [address] [place] [address] 369815 Assigned Neuroscience Provider 08/08/24 Teet Wang MD [address] [place] [address] Genetics, Clinical 10/30/24 Dahlia Joyce MD [address] [place] [address] Radiology Neuroradiology 11/17/24 Lisa Zambrano MD 6405 [facility] [address] [place] [address] Assigned Heart and Vascular Provider 12/06/24 Tete Wang MD 2450 [place], [place] 929234 Assigned Pediatric Specialist Provider 01/06/25 Any Joiner MD [address] [place] [address] 276 [place], [place] [address] Assigned Pulmonology Provider 02/05/25 documented as of this encounter
--- OUTSIDE RECORDS SUMMARY | 2025-03-09 12:23 | XMS_ITS | Encounter Summary ---
Author Organization [place] Address [address] [place] [address] Care Team Providers Care Crosscutter Rolled Glass Name Role Phone Yung Madrigal MD Unavailable Unavailable Winston Villatoro OD Unavailable [phone] Denise Woodson APRN HEALTHCARE ADMINISTRATION INTERNSHIP Unavailable [phone] Denise Woodson APRN HEALTHCARE ADMINISTRATION INTERNSHIP Primary Care Provider Usha Simon APRN HEALTHCARE ADMINISTRATION INTERNSHIP Unavailable Dangelo Salinas MD Unavailable Usha Simon APRN HEALTHCARE ADMINISTRATION INTERNSHIP Unavailable Anastasia Stearns RN Unavailable Germaine Aleman CHW Unavailable [phone] Robin Zepeda MD Unavailable [phone] Lisa Zambrano MD Unavailable Raul Hoyos MD Unavailable [phone] Joya Lira [facility] Unavailable [phone] Joya Lira RPJoleen Unavailable [phone] Fabi Coates MD Unavailable [phone] Robin Zepeda MD Unavailable Danna Cardenas PA-C Unavailable [phone] Felicita Desai RN Unavailable Unavailab Arthur RiosSW Unavailable +[phone] Randy Maradiaga DO Unavailable + Tete Wang MD Unavailable [phone] Dahlia Joyce MD Unavailable [phone] Lisa Zambrano MD Unavailable +[phone] Tete Wang MD Unavailable [phone] Any Joiner MD Unavailable [phone] Reason for Visit * Reason Onset Date Comments Medication Request 04/20/2021 escitalopram (LEXAPRO) 10 MG tablet Encounter Details Date Type Department Care Team (Late st Contact Info) Description 04/20/2021 [facility] Medical Advice [facility] [address] [place] [address] Denise Woodson APRN [facility] [address] [place] [address] Medication Request (escitalopram (LEXAPRO)... 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 [address] [place] [address] 03/26/2025 12:45 PM CDT Therapy Visit [facility] 150 [place] [phone] Bindu Bueno, OD 909 [place], [place] 311[address] Rubi Johnson, OT [address] [address] 04/02/2025 9:30 AM CDT Therapy Visit [address] [phone] Randy Maradiaga, DO 909 [place] [address] Delicia George, PT 150 [facility] [place] [address] 04/06/2025 11:00 AM CDT Virtual Visit [address] [phone] Bindu Bueno, OD 909 [place] [address] Rubi Johnson, OT [address] 286817 04/06/2025 12:30 PM CDT Therapy Visit [address] [phone] Randy Maradiaga, DO 909 [place] [address] Delicia George, PT 150 [place] [address] 04/16/2025 11:00 AM CDT Therapy Visit [address] [phone] Myles Bindu, OD 909 [place], [place] 793065 Rubi Johnson, OT [address] [address] 04/23/2025 12:45 PM CDT Therapy Visit [address] [phone] Bindu Bueno, OD 909 [place], [place] 027[address] Rubi Johnson, OT [address] [address] 04/23/2025 2:00 PM CDT Therapy Visit [address] [phone] Randy Maradiaga, DO 909 [place] [address] Delicia George, PT 150 [facility] [place] [address] 04/30/2025 10:15 AM CDT Therapy Visit [address] [phone] Randy Maradiaga, DO [address] [place] [address] Delicia George, PT 150 [facility] [place] [address] 05/04/2025 11:00 AM CDT Virtual Visit [address] [phone] Bindu Bueno, OD 909 [place] [address] Rubi Johnson, [address] [address] 05/07/2025 10:15 AM CDT Therapy Visit [address] [phone] Randy Maradiaga, DO [address] [place] [address] 798365 Delicia George, PT 150 [place] [address] 05/14/2025 10:15 AM CDT Therapy Visit [address] [phone] Randy Maradiaga, DO [address] [place] [address] Delicia George, PT 150 [place] [address] 05/14/2025 11:00 AM CDT Therapy Visit [facility] Rehabilitation Services [address] [phone] Bindu Bueno, OD 909 [place], [place] 130985 Rubi Johnson, [address] [address] 06/01/2025 11:15 AM CDT Appointment [facility] Specialty Care Center Imaging [address] [place] [phone] Robin Zepeda MD [address] [place] [address] 929985 06/02/2025 2:20 PM CDT Virtual Visit [facility] Neurosurgery Clinic [address] [phone] Robin Zepeda MD [address] [place] [address] 274495 07/01/2025 12:00 PM CDT Virtual Visit [facility] Physical Medicine and Rehabilitation Clinic [address] [phone] Santa Menon, PA-C [address] [place] [address] 452321 08/03/2025 4:30 PM HAY SORTER Virtual Visit [facility] Science and Health Clinic [place] 909 [place] [phone] Any Joiner MD 420 [facility] 276 [place] [address] documented as of this encounter Visit Diagnoses Diagnosis Generalized anxiety disorder 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, recurrent episode, mild documented in this encounter Additional Health Concerns Infection Onset Date Last Indicated Resolved Time Rule Out COVID-19 09/13/2024 09/13/2024 09/13/2024 12:31 PM HAY SORTER Rule Out COVID-19 11/14/2024 11/14/2024 11/14/2024 8:25 PM HAY SORTER Assessment Noted Time PHQ-9 Depression Total Score: 0 01/05/20 9:31 AM CDT documented as of this encounter Care Teams Crosscutter Rolled Glass Relationship Specialty Start Date End Date Yung Madrigal MD RETIRED PCP - Orthopaedics Orthopedics 08/26/12 01/20/24 Winston Villatoro OD [facility] 701 [facility] [address] [place] [address] PCP - Ophthalmology Ophthalmology 02/11/13 Denise Woodson APRN HEALTHCARE ADMINISTRATION INTERNSHIP [address] [place] [address] PCP - General Family Practice 09/21/20 Denise Woodson APRN [employer] ADMINISTRATION INTERNSHIP [address] [place] [address] Assigned PCP 07/17/20 Usha Simon APRN HEALTHCARE ADMINISTRATION INTERNSHIP [address] [place] [address] [address] Nurse Practitioner Neurological Surgery 01/24/24 Dangelo Salinas MD [address] [place] [address] Neurology 01/27/24 Usha Simon APRN HEALTHCARE ADMINISTRATION INTERNSHIP [address] [address] Assigned Neuroscience Provider 02/06/24 03/07/24 Anatsasia Stearns, RN Lead Biodiesel Engine Specialist 02/06/24 12/17/24 Germaine Aleman, W Community Health Worker Primary Care - CC 02/18/2412/17/24 Robin Zepeda MD [address] [address] Assigned Neuroscience Provider 03/08/24 05/07/24 Lisa Zambrano MD [address] [place] [address] Assigned Heart and Vascular Provider 05/08/24 07/07/24 Raul Hoyos MD [address] [address] Assigned Neuroscience Provider 05/08/24 07/07/24 Joya Lira RPH [address] [place] [address] Pharmacist Pharmacist 05/25/24 Joya Lira [facility] [address] [place] [address] Assigned MTM Pharmacist 06/08/24 Fabi Coates MD 420 [facility] 75 [place] [address] Genetics, Clinical 06/18/24 Robin Zepeda MD [address] [place] [address] [id number] [place], [place] 352025 Assigned Neuroscience Provider 07/08/24 08/07/24 Danna Cardenas PA-C 6405 [place], [place] 143105 Assigned Heart and Vascular Provider 07/08/24 12/05/24 Felicita Desai, GEMA Lead Biodiesel Engine Specialist 07/14/24 07/28/24 Arthur Salas [facility] [address] [address] Assigned Behavioral Health Provider 08/08/24 Randy Maradiaga DO [address] [place] [address] 533935 Assigned Neuroscience Provider 08/08/24 Tete Wang MD 2450 [place], [place] 5[address] Genetics, Clinical 10/30/24 Dahlia Joyce MD [address] [place] [address] 949735 Radiology Neuroradiology 11/17/24 Lisa Zambrano MD [address] [facility] [address] [place] [address] Assigned Heart and Vascular Provider 12/06/24 Tete Wang MD 2450 [place] [address] Assigned Pediatric Specialist Provider 01/06/25 Any Joiner MD [address] [place] [address] Assigned Pulmonology Provider 02/05/25 documented as of this encounter
--- OUTSIDE RECORDS SUMMARY | 2025-03-09 12:23 | XMS_ITS | Encounter Summary ---
Author Organization [place] Address [address] [place] [address] Care Team Providers Care Industrial Technician Name Role Phone Winston Villatoro OD Unavailable [phone] Deinse Woodson APRN REGISTERED NURSE FIRST ASSISTANT Unavailable [phone] Denise Woodson APRN REGISTERED NURSE FIRST ASSISTANT Primary Care Provider Usha Simon APRN REGISTERED NURSE FIRST ASSISTANT Unavailable + [phone] Dangelo Salinas MD Unavailable Anastasia Stearns RN Unavailable [phone] Germaine Aleman CHW Unavailable [phone] Joya Lira RP Unavailable +[phone] Joya Lira RP Unavailable +[phone] Fabi Coates MD Unavailable [phone] Danna CardenasC Unavailable [phone] SinanselmoledyArthur TIP INSERTER Unavailable +[phone] Randy Maradiaga DO Unavailable + Tete Wang MD Unavailable [phone] Dahlia Joyce MD Unavailable [phone] Lisa Zambrano MD Unavailable + [phone] Tete Wang MD Unavailable [phone] Any Joiner MD Unavailable Encounter Details Date Type Department Care Team (Late st Contact Info) Description 11/09/2024 MyC Medical Advice [facility] Neurology Clinic [address] [phone] Nisa Quach RN Social History Tobacco Use Types Packs/Day [...] How often do you attend caodaism or holiness serv ices? Never 09/16/2024 Do [...] Answer Date Recorded PHQ-2 Score 0 11/13/2024 [facility] of Occupat ional Health - Occupational Stress [...] file Legal Sex Female 4:05 AM SALES ANALYST Gender Identity Not on file Sexual [...] Description 03/16/2025 8:00 AM CDT Virtual Visit [facility] 150 [place] [phone] Bindu Bueno, OD 909 [place] [address] Rubi Johnson, OT [address] [address] 03/26/2025 12:45 PM CDT Therapy Visit [address] [phone] Bindu Bueno, OD 909 [place] [address] Rubi Johnson, OT [address] [address] 04/02/2025 9:30 AM CDT Therapy Visit [address] [phone] Randy Maradiaga, DO 909 [place] [address] Delicia George, PT 150 [place] [address] 04/06/2025 11:00 AM CDT Virtual Visit [address] [phone] Bindu Bueno, OD 909 [place], [place] 325095 Rubi Johnson, OT [facility] 150 [place] [address] 04/06/2025 12:30 PM CDT [facility] 150 [place] [phone] Randy Maradiaga, DO 909 [place] [address] Delicia George, PT 150 [facility] [place] [address] 04/16/2025 11:00 AM CDT Therapy Visit [address] [phone] Magali Buenoissa, OD [address] [place] [address] Rubi Johnson, OT [address] [address] 04/23/2025 12:45 PM CDT Therapy Visit [facility] 150 [place] [phone] Bindu Bueno, OD 909 [place] [address] Rubi Johnson, OT [address] [address] 04/23/2025 2:00 PM CDT Therapy Visit [address] [phone] Randy Maradiaga, DO 909 [place] [address] Delicia George, PT 150 [facility] [place] [address] 04/30/2025 10:15 AM CDT Therapy Visit [address] [phone] Randy Maradiaga, DO [address] [place] [address] 780775 Delicia George, PT 150 [place] [address] 05/04/2025 11:00 AM CDT Virtual Visit [address] [phone] Bindu Bueno, OD 909 [place], [place] 5[address] Rubi Johnson, OT [address] [address] 05/07/2025 10:15 AM CDT Therapy Visit [address] [phone] Randy Maradiaga, DO [address] [place] [address] 778225 Delicia George, PT 150 [place] [address] 05/14/2025 10:15 AM CDT Therapy Visit [facility] 150 [place] [phone] Randy Maradiaga, [address] [place] [address] Delicia George, PT 150 [place] [address] 05/14/2025 11:00 AM CDT Therapy Visit [address] [phone] Bindu Bueno, OD 909 [place] [address] Rubi Johnson, [address] [address] 06/01/2025 11:15 AM CDT Appointment [facility] Specialty Care Center Imaging [address] [place] [address] [place] [phone] Robin Zepeda MD [address] [place] [address] 095725 06/02/2025 2:20 PM CDT Virtual Visit [facility] Neurosurgery Clinic [address] [phone] Robin Zepeda MD [address] [place] [address] 442675 07/01/2025 12:00 PM CDT Virtual Visit [facility] Physical Medicine and Rehabilitation Clinic [address] [phone] Santa Menon PA-C 909 [place], [place] 654825 08/03/2025 4:30 PM SALES ANALYST Virtual Visit [facility] [place] 222749 [place] [phone] Any Joiner MD 420 [facility] 276 [place], [place] [address] documented as of this encounter Visit Diagnoses Not on filedocumented in this encounter Additional Health Concerns Infection Onset Date Last Indicated Resolved Time Rule Out COVID-19 11/14/2024 11/14/2024 11/14/2024 8:25 PM SALES ANALYST Assessment Noted Time PHQ-9 Depression Total Score: 0 09/18/19 12:46 PM SALES ANALYST documented as of this encounter Care Teams Industrial Technician Relationship Specialty Start Date End Date Winston Villatoro OD [facility] [place] [address] [place] [address] PCP - Ophthalmology Ophthalmology 02/11/13 Denise Woodson APRN REGISTERED NURSE FIRST ASSISTANT [address] [place] [address] PCP - General Family Practice 09/21/20 Denise Woodson APRN REGISTERED NURSE FIRST ASSISTANT [address] [facility] [facility] [place] [address] Assigned PCP 07/17/20 Usha Simon APRN REGISTERED NURSE FIRST ASSISTANT [address] [place] [address] [id number] [place] [address] Nurse Practitioner Neurological Surgery 01/24/24 Dangelo Salinas MD [address] [place] [address] Neurology 01/27/24 Anastasia Stearns, RN Lead Email Production Consultant 02/06/24 12/17/24 Germaine Aleman, W Community Health Worker Primary Care - CC 02/18/2412/17/24 Joya Lira [facility] [address] [place] [address] Pharmacist Pharmacist 05/25/24 Joya Lira [facility] [address] [place] [address] Assigned MTM Pharmacist 06/08/24 Fabi Coates MD [address] [place] [address] 755825 Genetics, Clinical 06/18/24 Danna Cardenas PA-C [address] [place] [address] Assigned Heart and Vascular Provider 07/08/24 12/05/24 Arthur Salas, [facility] [address] [address] Assigned Behavioral Health Provider 08/08/24 Randy Maradiaga DO 9 [place], [place] 961855 Assigned Neuroscience Provider 08/08/24 Tete Wang MD [address] [place] [address] Genetics, Clinical 10/30/24 Dahlia Joyce MD [address] [place] [address] Radiology Neuroradiology 11/17/24 Lisa Zambrano MD [address] [facility] [address] [place] [address] Assigned Heart and Vascular Provider 12/06/24 Tete Wang MD 2450 [place], [place] 978454 Assigned Pediatric Specialist Provider 01/06/25 Any Joiner MD [address] [place] [address] 276 [place], [place] 580875 Assigned Pulmonology Provider 02/05/25 documented as of this encounter
--- OUTSIDE RECORDS SUMMARY | 2025-03-09 12:23 | XMS_ITS | Encounter Summary ---
Author Organization [facility] Address [address] [place] [address] Care Team Providers Care Die Press Operator Name Role Phone Yung Madrigal MD Unavailable Unavailable Winston Villatoro OD Unavailable +[phone] Denise Woodson APRN MATERIAL MANAGER Unavailable [phone] Denise Woodson APRN MATERIAL MANAGER Primary Care Provider Usha Simon APRN MATERIAL MANAGER Unavailable Dangelo Salinas MD Unavailable Usha Simon APRN MATERIAL MANAGER Unavailable Anastasia Stearns RN Unavailable Germaine Aleman CHW Unavailable [phone] Robin Zepeda MD Unavailable Lisa Zambrano MD Unavailable Raul Hoyos MD Unavailable Joya Lira [facility] Unavailable [phone] Joya Lira RPJoleen Unavailable Fabi Coates MD Unavailable [phone] Robin Zepeda MD Unavailable Danna Cardenas PA-C Unavailable [phone] Felicita Desai RN Unavailable Unavailab Arthur Rios BAIT PAINTER Unavailable +[phone] Randy Maradiaga DO Unavailable + Tete Wang MD Unavailable +[phone] Dahlia Joyce MD Unavailable +[phone] Lisa Zambrano MD Unavailable + [phone] Tete Wang MD Unavailable +[phone] Any Joiner MD Unavailable [phone] Encounter Details Date Type Department Care Team (Late st Contact Info) Description 12/30/2020 MyC Medical Advice [address] [address] Jessica Phipps, PROFESSOR OF EXERCISE SCIENCE Social History Tobacco Use Types Packs/Day Years Used Date Smoking Tobacco: Never Smokeless Tobacco: Never Alcohol Use Standard Drinks/Week Comments Yes 0 (1 standard drink = 0.6 oz pur e alcohol) minimal PHQ-2 Answer Date Recorded PHQ-2 Score 2 07/13/2020 Comments No Sex and Gender Information Value Date Recorded Sex Assigned at Not on file Legal Sex Female 4:05 AM HOG STICKER Gender Identity Not on file Sexual Orientation [...] Description 03/16/2025 8:00 AM CDT Virtual Visit [facility] [address] [phone] Bindu Bueno, OD 909 [place] [address] Rubi Johnson, OT [facility] 150 [place] [address] 03/26/2025 12:45 PM CDT Therapy Visit [facility] 150 [place] [phone] Bindu Bueno, OD 909 [place] [address] Rubi Johnson, OT [address] [address] 04/02/2025 9:30 AM CDT Therapy Visit [address] [phone] Randy Maradiaga, DO 909 [place] [address] Deilcia George, PT 150 [place] [address] 04/06/2025 11:00 AM CDT Virtual Visit [address] [phone] Bindu Bueno, OD 909 [place] [address] Rubi Johnson, OT [address] [address] 04/06/2025 12:30 PM CDT Therapy Visit [address] [phone] Randy Maradiaga, DO [address] [place] [address] Delicia George, PT 150 [place] [address] 04/16/2025 11:00 AM CDT Therapy Visit [address] [phone] Bindu Bueno, OD 909 [place], [place] [address] Rubi Johnson, OT [address] [address] 04/23/2025 12:45 PM CDT Therapy Visit [address] [phone] Bindu Bueno, OD 909 [place] [address] Rubi Johnson, OT [address] [address] 04/23/2025 2:00 PM CDT Therapy Visit [address] [phone] Randy Maradiaga, DO [address] [place] [address] Delicia George, PT 150 [facility] [place] [address] 04/30/2025 10:15 AM CDT Therapy Visit [address] [phone] Randy Maradiaga, DO [address] [place] [address] Delicia George, PT 150 [place] [address] 05/04/2025 11:00 AM CDT Virtual Visit [address] [phone] Bindu Bueno, OD 909 [place] [address] Rubi Johnson, [address] [address] 05/07/2025 10:15 AM CDT Therapy Visit [address] [phone] Randy Maradiaga, DO [address] [place] [address] Delicia George, PT 150 [place] [address] 05/14/2025 10:15 AM CDT Therapy Visit [address] [phone] Randy Maradiaga, DO [address] [place] [address] Delicia George, PT 150 [place], [place] 122557 05/14/2025 11:00 AM CDT Therapy Visit [facility] [address] [phone] Bindu Bueno, OD 9 [place] [address] Rubi Johnson, OT [address] 735[address] 06/01/2025 11:[address] [facility] Imaging [address] [place] [phone] Robin Zepeda MD [address] [place] [address] 06/02/2025 2:20 PM CDT Virtual Visit [facility] Neurosurgery [address] [phone] Robin Zepeda MD [address] [place] [address] 07/01/2025 12:00 PM CDT Virtual Visit [facility] Physical Medicine and Rehabilitation [address] [phone] Santa Menon, PA-C [address] [place] [address] 08/03/2025 4:30 PM HOG STICKER Virtual Visit [facility] [address] [place] [phone] Any Joiner MD 420 [facility] 276 [place], [place] 689385 documented as of this encounter Visit Diagnoses Not on filedocumented in this encounter Additional Health Concerns Infection Onset Date Last Indicated Resolved Time Rule Out COVID-19 09/13/2024 09/13/2024 09/13/2024 12:31 PM HOG STICKER Rule Out COVID-19 11/14/2024 11/14/2024 11/14/2024 8:25 PM HOG STICKER Assessment Noted Time PHQ-9 Depression Total Score: 0 06/15/20 19 7:09 PM CDT documented as of this encounter Care Teams Die Press Operator Relationship Specialty Start Date End Date Yung Madrigal MD RETIRED PCP - Orthopaedics Orthopedics 08/26/12 01/20/24 Winston Villatoro OD [facility] [place] [address] [facility] [address] [place] [address] PCP - Ophthalmology Ophthalmology 02/11/13 Denise Woodson APRN MATERIAL MANAGER [address] [place] [address] PCP - General Family Practice 09/21/20 Denise Woodson APRN MATERIAL MANAGER [address] [place] [address] Assigned PCP 07/17/20 Usha Simon APRN MATERIAL MANAGER [address] [place] [address] [id number] [place] [address] Nurse Practitioner Neurological Surgery 01/24/24 Dangelo Salinas MD [address] [place] [address] Neurology 01/27/24 Usha Simon APRN MATERIAL MANAGER [address] [address] Assigned Neuroscience Provider 02/06/24 03/07/24 Anastasia Stearns, RN Lead Field Interviewer 02/06/24 12/17/24 Germaine Aleman, W Community Health Worker Primary Care - CC 02/18/2412/17/24 Robin Zepeda MD [address] [address] Assigned Neuroscience Provider 03/08/24 05/07/24 Lisa Zambrano MD [address] [place], [place] 282495 Assigned Heart and Vascular Provider 05/08/24 07/07/24 Raul Hoyos MD [address] [address] Assigned Neuroscience Provider 05/08/24 07/07/24 Joya Lira RPH [address] [address] Pharmacist Pharmacist 05/25/24 Joya Lira RPH [address] [place] [address] Assigned MTM Pharmacist 06/08/24 Fabi Coates MD 420 [facility] 75 [place], [place] 9[address] Genetics, Clinical 06/18/24 Robin Zepeda MD [address] [place] [address] MR0024MR [place], [place] 137345 Assigned Neuroscience Provider 07/08/24 08/07/24 Danna Cardenas PA-C 6405 [place], [place] 138945 Assigned Heart and Vascular Provider 07/08/24 12/05/24 Felicita Desai, GEMA Lead Field Interviewer 07/14/24 07/28/24 Arthur Salas [facility] [address] [place] [address] Assigned Behavioral Health Provider 08/08/24 Randy Maradiaga DO [address] [place] [address] 938015 Assigned Neuroscience Provider 08/08/24 Tete Wang MD [address] [place] [address] 253664 Genetics, Clinical 10/30/24 Dahlia Joyce MD [address] [place] [address] 430415 Radiology Neuroradiology 11/17/24 Lisa Zambrano MD 6405 [facility] [address] [place], [place] 531295 Assigned Heart and Vascular Provider 12/06/24 Tete Wnag MD [address] [place] [address] Assigned Pediatric Specialist Provider 01/06/25 Any Joiner MD [address] [place] [address] Assigned Pulmonology Provider 02/05/25 documented as of this encounter
--- OUTSIDE RECORDS SUMMARY | 2025-03-09 12:23 | XMS_ITS | Encounter Summary ---
Author Organization [facility] Address [address] [place] [address] Care Team Providers Care Mobile Manager Name Role Phone Winston Villatoro OD Unavailable [phone] Denise Woodson APRN LEAD TANK MECHANIC Unavailable [phone] Denise Woodson APRN LEAD TANK MECHANIC Primary Care Provider Usha Simon APRN LEAD TANK MECHANIC Unavailable + [phone] Dangelo Salinas MD Unavailable Anastasia Stearns RN Unavailable Germaine Aleman CHW Unavailable [phone] Joya Lira RP Unavailable +[phone] Joya Lira RP Unavailable Fabi Coates MD Unavailable [phone] Danna CardenasC Unavailable [phone] SinanselmoledyArthur COMPUTER TECHNOLOGY INSTRUCTOR Unavailable +[phone] Randy Maradiaga DO Unavailable + Tete Wang MD Unavailable [phone] Dahlia Joyce MD Unavailable [phone] Lisa Zambrano MD Unavailable + [phone] Tete Wang MD Unavailable +[phone] Any Joiner MD Unavailable Encounter Details Date Type Department Care Team (Late st Contact Info) Description 08/14/2024 MyC Medical Advice [facility] Neurology Clinic [address] [place] [address] Randy Maradiaga DO [address] [place] [address] Social History Tobacco Use Types Packs/Day [...] How often do you attend restorationist or spiritism serv ices? Never 02/28/2024 Do [...] Answer Date Recorded PHQ-2 Score 2 08/04/2024 [facility] - [...] on file Legal Sex Female 4:05 AM GROCERY TEAM MEMBER Gender Identity Not on file Sexual Orientation [...] Description 03/16/2025 8:00 AM CDT Virtual Visit [facility] [address] [phone] Bindu Bueno, OD 909 [place], [place] [address] Rubi Johnson, OT [address] [address] 03/26/2025 12:45 PM CDT [facility] [phone] Bindu Bueno, OD 909 [place], [place] 0414[address] Rubi Johnson, OT [address] 637477 04/02/2025 9:30 AM CDT Therapy Visit [address] [phone] Randy Maradiaga, DO 909 [place] [address] Delicia George, PT 150 [facility] [place] 962357 04/06/2025 11:00 AM CDT Virtual Visit [address] [phone] Bindu Bueno, OD 909 [place] [address] Rubi Johnson, OT [address] [address] 04/06/2025 12:30 PM CDT Therapy Visit [address] [phone] Randy Maradiaga, DO 909 [place] [address] Delicia George, PT 150 [place] [address] 04/16/2025 11:00 AM CDT Therapy Visit [address] [phone] BuenoBindu flores, OD 909 [place] [address] Rubi Johnson, OT [address] [address] 04/23/2025 12:45 PM CDT Therapy Visit [facility] 150 [place] [address] Bindu Bueno, OD 909 [place] [address] Rubi Johnson, OT [address] [address] 04/23/2025 2:00 PM CDT Therapy Visit [facility] 150 [place] [phone] Randy Maradiaga, DO [address] [place] [address] Delicia George, PT 150 [facility] [place] [address] 04/30/2025 10:15 AM CDT Therapy Visit [address] [phone] Randy Maradiaga, DO [address] [place] [address] Delicia George, PT 150 [place] [address] 05/04/2025 11:00 AM CDT Virtual Visit [address] [phone] Bindu Bueno, OD 909 [place] [address] Rubi Johnson, [address] [address] 05/07/2025 10:15 AM CDT Therapy Visit [address] [phone] Randy Maradiaga, DO [address] [place] [address] 379335 Delicia George, PT 150 [place] [address] 05/14/2025 10:15 AM CDT Therapy Visit [address] [phone] Randy Maradiaga, [address] [place] [address] Delicia George, PT 150 [facility] [place] [address] 05/14/2025 11:00 AM CDT Therapy Visit [address] [phone] Bindu Bueno, OD [address] [place] [address] 865335 Rubi Johnson, OT [address] [address] 06/01/2025 11:15 AM CDT Appointment [facility] Imaging [address] [place] [phone] Robin Zepeda MD [address] [place] [address] 06/02/2025 2:20 PM CDT Virtual Visit [facility] Neurosurgery Clinic [address] 3rd [place] [phone] Robin Zepeda MD [address] [place] [address] 849095 07/01/2025 12:00 PM CDT Virtual Visit [facility] Medicine [facility] Rehabilitation [facility] [place] [address] [facility] 3rd [place] [phone] Santa Menon PA-C [address] [place] [address] 226335 08/03/2025 4:30 PM GROCERY TEAM MEMBER Virtual Visit [facility] [address] [phone] Any Joiner MD 420 [facility] 276 [place] [address] documented as of this encounter Visit Diagnoses Not on filedocumented in this encounter Additional Health Concerns Infection Onset Date Last Indicated Resolved Time Rule Out COVID-19 09/13/2024 09/13/2024 09/13/2024 12:31 PM GROCERY TEAM MEMBER Rule Out COVID-19 11/14/2024 11/14/2024 11/14/2024 8:25 PM GROCERY TEAM MEMBER Assessment Noted Time PHQ-9 Depression Total Score: 5 08/03/20 24 12:49 PM GROCERY TEAM MEMBER documented as of this encounter Care Teams Mobile Manager Relationship Specialty Start Date End Date Winston Villatoro OD [facility] [place] [address] [place] [address] PCP - Ophthalmology Ophthalmology 02/11/13 Denise Woodson APRN LEAD TANK MECHANIC [address] [address] PCP - General Family Practice 09/21/20 Denise Woodson APRN LEAD TANK MECHANIC [address] [address] Assigned PCP 07/17/20 Usha Simon APRN LEAD TANK MECHANIC [address] [place] [address] [id number] [place] [address] Nurse Practitioner Neurological Surgery 01/24/24 Dangelo Salinas MD [address] [place] [address] Neurology 01/27/24 Anastasia Stearns, RN Lead Reservations Specialist 02/06/24 12/17/24 Germaine Aleman, W Community Health Worker Primary Care - CC 02/18/2412/17/24 Joya Lira [facility] [address] [address] Pharmacist Pharmacist 05/25/24 Joya Lira [facility] [address] [place] [address] Assigned MTM Pharmacist 06/08/24 Fabi Coates MD [address] [place] [address] 75 [place] [address] Genetics, Clinical 06/18/24 Danna Cardenas PA-C 6405 [place] [address] Assigned Heart and Vascular Provider 07/08/24 12/05/24 Arthur Salas COMPUTER TECHNOLOGY INSTRUCTOR [address] [address] Assigned Behavioral Health Provider 08/08/24 Randy Maradiaga DO [address] [place] [address] Assigned Neuroscience Provider 08/08/24 Tete Wang MD [address] [place] [address] Genetics, Clinical 10/30/24 Dahlia Joyce MD [address] [place] [address] Radiology Neuroradiology 11/17/24 Lisa Zambrano MD 6405 [facility] [place] [address] Assigned Heart and Vascular Provider 12/06/24 Tete Wang MD [address] [place] [address] 626044 Assigned Pediatric Specialist Provider 01/06/25 Any Joiner MD [address] [place] [address] 131955 Assigned Pulmonology Provider 02/05/25 documented as of this encounter
--- OUTSIDE RECORDS SUMMARY | 2025-03-09 12:23 | XMS_ITS | Encounter Summary ---
Author Organization [facility] Address [address] [place] [address] Care Team Providers Care Blasting Contract Miner Name Role Phone Winston Villatoro OD Unavailable [phone] Denise Woodson APRN HOME HOUSEKEEPER Unavailable [phone] Denise Woodson APRN HOME HOUSEKEEPER Primary Care Provider Usha Simon APRN HOME HOUSEKEEPER Unavailable + [phone] Dangelo Salinas MD Unavailable Anastasia Stearns RN Unavailable +[phone] Germaine Aleman CHW Unavailable [phone] Joya Lira RP Unavailable [phone] Joya Lira RP Unavailable Fabi Coates MD Unavailable [phone] Danna CardenasC Unavailable [phone] SinanselmoledyArthur OPERATIONS EXPERT Unavailable [phone] Randy Maradiaga DO Unavailable + Tete Wang MD Unavailable [phone] Dahlia Joyce MD Unavailable [phone] Lisa Zambrano MD Unavailable + [phone] Tete Wang MD Unavailable +[phone] Any Joiner MD Unavailable Encounter Details Date Type Department Care Team (Late st Contact Info) Description 10/05/[address] [facility] Neurology Clinic [address] [phone] Phoebe Del Cid Social History [...] Never 09/16/2024 How often do you attend shinto or denominational serv ices? 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 Not on file Not on file Not on file Not on file Not on file Not on file Not on file documented as of this encounter Plan of Treatment Upcoming Encounters Date Type Department Care Team (Late st Contact Info) Description 03/16/2025 8:00 AM CDT Virtual Visit [facility] 150 [place] [phone] Bindu Bueno, OD 909 [place] [address] Rubi Johnson, OT [address] [address] 03/26/2025 12:45 PM CDT Therapy Visit [address] [phone] Bindu Bueno, OD 909 [place] [address] Rubi Johnson, OT [address] [address] 04/02/2025 9:30 AM CDT Therapy Visit [address] [phone] Randy Maradiaga, DO 909 [place] [address] Delicia George, PT 150 [place] [address] 04/06/2025 11:00 AM CDT Virtual Visit [address] [phone] Bindu Bueno, OD 909 [place], [place] 7[address] Rubi Johnson, OT [facility] 150 [place] [address] 04/06/2025 12:30 PM CDT [facility] 150 [place] [phone] Randy Maradiaga, DO 909 [place] [address] Delicia George, PT 150 [facility] [address] 04/16/2025 11:00 AM CDT Therapy Visit [address] [phone] Magali Buenoissa, OD [address] [place] [address] Rubi Johnson, OT [address] [address] 04/23/2025 12:45 PM CDT Therapy Visit [facility] 150 [place] [phone] Bindu Bueno, OD 909 [place] [address] Rubi Johnson, OT [address] [address] 04/23/2025 2:00 PM CDT Therapy Visit [address] [phone] Randy Maradiaga, DO 909 [place] [address] Delicia George, PT 150 [facility] [place] [address] 04/30/2025 10:15 AM CDT Therapy Visit [address] [phone] Randy Maradiaga, DO [address] [place] [address] 707835 Delicia George, PT 150 [place] [address] 05/04/2025 11:00 AM CDT Virtual Visit [address] [phone] Bindu Bueno, OD 909 [place], [place] 9250[address] Rubi Johnson, OT [address] [address] 05/07/2025 10:15 AM CDT Therapy Visit [address] [phone] Randy Maradiaga, DO [address] [place] [address] 601265 Delicia George, PT 150 [place] [address] 05/14/2025 10:15 AM CDT Therapy Visit [facility] 150 [place] [phone] Randy Maradiaga, [address] [place] [address] Delicia George, PT 150 [place] [address] 05/14/2025 11:00 AM CDT Therapy Visit [address] [phone] Bindu Bueno, OD 909 [place] [address] Rubi Johnson, [address] [address] 06/01/2025 11:15 AM CDT Appointment [facility] Center Imaging [address] [place] [phone] Robin Zepeda MD [address] [place] [address] 214465 06/02/2025 2:20 PM CDT Virtual Visit [facility] Neurosurgery Clinic [address] [phone] Robin Zepeda MD [address] [place] [address] 212765 07/01/2025 12:00 PM CDT Virtual Visit [facility] Physical Medicine and Rehabilitation Clinic [address] [phone] Santa Menon PA-C 909 [place], [place] 169925 08/03/2025 4:30 PM RETIREMENT PLAN COUNSELOR Virtual Visit [facility] [place] 988229 [place] [phone] Any Joiner MD 420 [facility] 276 [place], [place] [address] documented as of this encounter Visit Diagnoses Not on filedocumented in this encounter Additional Health Concerns Infection Onset Date Last Indicated Resolved Time Rule Out COVID-19 11/14/2024 11/14/2024 11/14/2024 8:25 PM RETIREMENT PLAN COUNSELOR Assessment Noted Time PHQ-9 Depression Total Score: 0 09/18/19 12:46 PM RETIREMENT PLAN COUNSELOR documented as of this encounter Care Teams Blasting Contract Miner Relationship Specialty Start Date End Date Winston Villatoro OD [facility] [place] [address] [place] [address] PCP - Ophthalmology Ophthalmology 02/11/13 Denise Woodson APRN HOME HOUSEKEEPER [address] [place] [address] PCP - General Family Practice 09/21/20 Denise Woodson APRN HOME HOUSEKEEPER [address] [place] [address] Assigned PCP 07/17/20 Usha Simon APRN HOME HOUSEKEEPER [address] [place] [address] [id number] [place] [address] Nurse Practitioner Neurological Surgery 01/24/24 Dangelo Salinas MD [address] [place] [address] Neurology 01/27/24 Anastasia Stearns, RN Lead Stuffer 02/06/24 12/17/24 Germaine Aleman, W Community Health Worker Primary Care - CC 02/18/2412/17/24 Joya Lira [facility] [address] [place] [address] Pharmacist Pharmacist 05/25/24 Joya Lira [facility] [address] [place] [address] Assigned MTM Pharmacist 06/08/24 Fabi Coates MD [address] [place] [address] 270435 Genetics, Clinical 06/18/24 Danna Cardenas PA-C [address] [place] [address] Assigned Heart and Vascular Provider 07/08/24 12/05/24 Arthur Salas, [facility] [address] [address] Assigned Behavioral Health Provider 08/08/24 Randy Maradiaga DO 9 [place], [place] 473915 Assigned Neuroscience Provider 08/08/24 Tete Wang MD [address] [place] [address] Genetics, Clinical 10/30/24 Dahlia Joyce MD [address] [place] [address] Radiology Neuroradiology 11/17/24 Lisa Zambrano MD [address] [facility] [address] [place] [address] Assigned Heart and Vascular Provider 12/06/24 Tete Wang MD 2450 [place], [place] 300374 Assigned Pediatric Specialist Provider 01/06/25 Any Joiner MD [address] [place] [address] 276 [place], [place] 610805 Assigned Pulmonology Provider 02/05/25 documented as of this encounter
--- OUTSIDE RECORDS SUMMARY | 2025-03-09 12:23 | XMS_ITS | Encounter Summary ---
Author Organization [facility] Address [address] [place] [address] Care Team Providers Care Color Tester Name Role Phone Winston Villatoro OD Unavailable [phone] Denise Woodson APRN FIRE ENGINE PUMP OPERATOR Unavailable +[phone] Denise Woodson APRN FIRE ENGINE PUMP OPERATOR Primary Care Provider Usha Simon APRN FIRE ENGINE PUMP OPERATOR Unavailable + [phone] Dangelo Salinas MD Unavailable Anastasia Stearns RN Unavailable [phone] Germaine Aleman CHW Unavailable +[phone] Joya Lira RP Unavailable [phone] Joya Lira RP Unavailable Fabi Coates MD Unavailable [phone] Danna CardenasC Unavailable +[phone] SinanselmoledyArthur WAREDRESSER Unavailable +[phone] Randy Maradiaga DO Unavailable + Tete Wang MD Unavailable +[phone] Dahlia Joyce MD Unavailable +[phone] Lisa Zambrano MD Unavailable + [phone] Tete Wang MD Unavailable +[phone] Any Joiner MD Unavailable Encounter Details Date Type Department Care Team (Late st Contact Info) Description 10/05/2024 MyC Medical Advice [facility] Care Coordination [facility] [address] [place] [phone] Germaine Aleman, [facility] Social History Tobacco Use Types Packs/Day [...] How often do you attend rastafarian or gnosticist serv ices? 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 Gender Identity Not on file Sexual Orientation [...] Description 03/16/2025 8:00 AM CDT Virtual Visit [address] [phone] Bindu Bueno, OD [address] [place] [address] Rubi Johnson, OT [address] [address] 03/26/2025 12:45 PM CDT Therapy Visit [address] [phone] BuenoBindu flores, OD [address] [place], [place] [phone] Rubi Johnson, OT [address] [address] 04/02/2025 9:30 AM CDT Therapy Visit [address] [phone] Randy Maradiaga, DO [address] [place] [address] Delicia George, PT [address] [place] [address] 04/06/2025 11:00 AM CDT Virtual Visit [address] [phone] Bindu Bueno, OD [address] [place], [place] [address] Rubi Johnson, OT [facility] [address] [place] [address] 04/06/2025 12:30 PM CDT [facility] [address] [place] [phone] Randy Maradiaga, DO [address] [place] [address] Delicia George, PT [address] [facility] [place] [address] 04/16/2025 11:00 AM CDT Therapy Visit [address] [phone] Magali Buenoissa, OD [address] [place] [address] Rubi Johnson, OT [address] [address] 04/23/2025 12:45 PM CDT [facility] [address] [place] [phone] Bueno Bindu, OD [address] [place] [address] Rubi Johnson, OT [address] [address] 04/23/2025 2:00 PM CDT Therapy Visit [address] [phone] Randy Maradiaga, DO [address] [place] [address] Delicia George, PT [address] [facility] [address] 04/30/2025 10:15 AM CDT Therapy Visit [address] [phone] Randy Maradiaga, DO [address] [place] [address] [phone] Delicia George, PT [address] [place] [address] 05/04/2025 11:00 AM CDT Virtual Visit [address] [phone] Bindu Bueno, OD [address] [place] [address] Rubi Johnson, [address] [address] 05/07/2025 10:15 AM CDT Therapy Visit [address] [phone] Randy Maradiaga, DO [address] [place] [address] Delicia George, PT [address] [place] [address] 05/14/2025 10:15 AM CDT Therapy Visit [address] [phone] Randy Maradiaga, DO [address] [place] [address] Delicia George, PT [address] [place], [place] [address] 05/14/2025 11:00 AM CDT Therapy Visit [address] [phone] Bindu Bueno, OD [address] [place], [place] [address] Rubi Johnson, [address] [address] 06/01/2025 11:15 AM CDT Appointment [facility] Imaging [address] [place] [phone] Robin Zepeda MD [address] [place] [address] 9[address]45 06/02/2025 2:20 PM CDT Virtual Visit [facility] [address] [phone] Robin Zepeda MD [address] [place] [address] 348425 07/01/2025 12:00 PM CDT Virtual Visit [facility] [address] [phone] [facility] [address] [place], [place] [phone] 08/03/2025 4:30 PM SUPERVISOR WET END Virtual Visit [facility] [place] [address] [place] [phone] Any Joiner MD [address] [facility] [address] [place] [address] documented as of this encounter Visit Diagnoses Not on filedocumented in this encounter Additional Health Concerns Infection Onset Date Last Indicated Resolved Time Rule Out COVID-19 11/14/2024 11/14/2024 11/14/2024 8:25 PM SUPERVISOR WET END Assessment Noted Time PHQ-9 Depression Total Score: 0 09/18/19 12:46 PM SUPERVISOR WET END documented as of this encounter Care Teams Color Tester Relationship Specialty Start Date End Date Winston Villatoro OD [facility] [place] [address] [place] [address] PCP - Ophthalmology Ophthalmology 02/11/13 Denise Woodson APRN FIRE ENGINE PUMP OPERATOR [address] [place] [address] PCP - General Family Practice 09/21/20 Denise Woodson APRN FIRE ENGINE PUMP OPERATOR [address] [address] [facility] [address] Assigned PCP 07/17/20 Usah Simon APRN FIRE ENGINE PUMP OPERATOR [address] [place] [address] [id number] [place] [address] Nurse Practitioner Neurological Surgery 01/24/24 Dangelo Salinas MD [address] [place] [address] Neurology 01/27/24 Anastasia Stearns, RN Lead Audio Visual Production Specialist 02/06/24 12/17/24 Germaine Aleman, W Community Health Worker Primary Care - CC 02/18/2412/17/24 Joya Lira [facility] [address] [address] Pharmacist Pharmacist 05/25/24 Joya Lira [facility] [address] [place] [address] Assigned MTM Pharmacist 06/08/24 Fabi Coates MD [address] [place] [address] [address] [place] [address] Genetics, Clinical 06/18/24 Danna Cardenas PA-C [address] [place] [address] Assigned Heart and Vascular Provider 07/08/24 12/05/24 Arthur Salas, [facility] [address] [address] Assigned Behavioral Health Provider 08/08/24 Randy Maradiaga DO [address] [place] [address] Assigned Neuroscience Provider 08/08/24 [place] [address] [place] [address] Genetics, Clinical 10/30/24 Dahlia Joyce MD [address] [place] [address] Radiology Neuroradiology 11/17/24 Lisa Zambrano MD [address] [facility] [address] [place] [address] Assigned Heart and Vascular Provider 12/06/24 Tete Wang MD [address] [place] [address] 340894 Assigned Pediatric Specialist Provider 01/06/25 Any Joiner MD [address] [place] [address] [phone] Assigned Pulmonology Provider 02/05/25 documented as of this encounter
--- OUTSIDE RECORDS SUMMARY | 2025-03-09 12:24 | XMS_ITS | Clinical Summary ---
Author Organization [facility] Address [address] [place] [address] Care Team Providers Care Capacity Manager Name Role Phone Darius Shaw M.D. Primary Care Provider [phone] Source Comments Patient records contain information from all sites at [facility]. For routine questions regarding patient records, call [phone] during business hours, M-F 8:00 AM - 5:00 PM Central Time. Record requests for emergency care only can be directed to [phone] at any time.[facility] Allergies Active Allergy Reactions Criticality Noted Date Comments Acetaminophen-Codeine Nausea And Vomitin g,Other (see comments) 01/10/2022 Codeine GI intolerance High 09/23/2022 Doxycycline Rash Low 09/28/2024 Erythromycin GI intolerance 06/01/2011 Erythromycin Base GI intolerance 02/03/2006 Mold Other (see comments) 08/22/2012 Morphine Nausea Only 05/15/2024 Pollen Extracts Other (see comments) 08/22/2012 Medications [...] a day. 60 tablet 11 3 Active Additional Information Patient not taking.Reported on 01/01/2025 albuterol 90 mcg/actuation inhaler Inhale 2 puffs every 4 (four) hours as needed for wheezing. 8 g 11 3 Active Breo Ellipta 200-25 mcg/dose inhaler Inhale 1 puff daily. 60 each 3 4 Active acetaminophen (TylenoL) 500 mg tablet Take 500-1,000 mg by mouth. 4 Active amitriptyline (ElaviL) 25 mg tablet Take 25 mg by mouth at bedtime. 5 Active cetirizine (ZyrTEC) 10 mg tablet Take 10 mg by mouth at bedtime. Active diclofenac sodium (Voltaren) 75 mg EC tablet Take 75 mg by mouth 2 (two) times a day. PRN 5 Active levETIRAcetam (Keppra) 750 mg tablet Take 375 mg by mouth 2 (two) times a day. Active lidocaine 4 % adhesive patch,medicated Place 1 patch on the skin as needed. 4 Active LORazepam (Ativan) 1 mg tablet Take 1 mg by mouth as needed. 4 Active methylPREDNISol one (MedroL DosePak) 4 mg tablet Take as directed on package. 21 tablet 01/01/2025 12:28 PM CDT 5 Active traZODone (DesyreL) 100 mg tablet TAKE 1 TABLET (100 MG TOTAL) BY MOUTH AT BEDTIME. 90 tablet 3 02/09/2025 3:37 PM CDT 5 Active Active Problems Problem Noted Date Diagnosed [...] severe, without mention of psychotic behavior Encounters * This document contains information received from the source organization and may not represent a complete record from that organization. Date Type Department Care Team Description 02/01/2025 Refill Department of Family Medicine, [facility], in [address] [address] Darius Shaw M.D. Med Refill 01/20/2025 Clinical Communication Department of Medical Genetics in [place], [place] [address] [place] [address] Prescheduling, Provider Appt Request 01/05/2025 8:54 AM CDT - 01/05/2025 3:15 PM CDT Emergency [facility] Emergency Department [address] [place] [address] Carmencita Gracia, MANUFACTURING PRODUCTION TECHNICIAN, C.N.P., D.N.P., M.S.N. Pain Chest (Primary Dx); Dizziness Discharge Disposition: Home or Self Care 01/05/2025 Clinical Communication [facility] [address] [place] [address] Brenda Gutierrez M.D., M.H.A. 01/01/2025 11:00 AM CDT Office Visit Department of Family Medicine, [facility], in [place] [address] [place] [address] Tessie Siddiqi P.A.-C. Headache Unspecified (Primary Dx) from Last 3 Months Immunizations Immunization Administration Dates Next Due HepB, Unspecified 03/03/2012,11/07/2011,10/04/19 12 Influenza Split 07/17/2006 Influenza TIV (IM) 06/01/2013,06/04/2012, 007 Influenza, Unspecified 07/11/2017,2013,06/16/2013,2006 PPD Test 11/07/2011,10/08/2011 PPSV23 03/16/2004 Td (Adult), adsorbed 04/05/2003 Td, (Adult) Unspecified 02/14/2003 Tdap 01/04/2021,01/26/2011 Tuberculin Skin Test, Unspecified 11/07/2011, influenza vaccine quad (FLUZONE/FLUARIX) (6 months and older)(PF) 08/02/2022,06/23/2021,07/27/2020,2018,08/07/2017,10/17/2005 Family History Medical History Relation Name Comments Stroke Maternal Grandmother 1 Relation Name Status Comments Maternal Grandmother 1 Maternal Grandmother 2 Jennifer Social History Tobacco Use Types Packs/Day Years Used Date Smoking Tobacco: Never Smokeless Tobacco: Never Tobacco Cessation:Counseling Given: Not Answered Alcohol Use Standard Drinks/Week Comments Never 0 (1 standard drink = 0.6 oz pur e alcohol) [facility] Utilities Answer Date Recorded In the past 12 months has e electric, gas, oil, or water company threatened to shut off services in your home? No 01/01/2025 Humiliation, Afraid, Rape, and Kick questionnair e [...] by your partner or ex-partner? No 01/10/2023 Hunger Vital Sign Answer Date Recorded Within the past 12 months, y ou worried that your food would run out before you got the money to buy more. Never true 01/02/20 25 Within the past 12 months, t he food you bought just didn't last and you didn't have money to get more. Never true 01/01/2025 PRAPARE - Transportation Answer Date Re corded In the past 12 months, has l ack of transportation kept you from medical appointments or from getting medications? Yes 12/15 In the past 12 months, has l ack of transportation kept you from meetings, work, or from getting things needed for daily living? No 01/01/2025 Depression Answer Date Recor ded PHQ-9 Total Score (max 27) 9 01/01 Housing Stability Answer Date Recorded What is your living situation today? [facility] to [facility] 01/01/2025 Education Answer Date Recorded What is the highest level of school you have completed or the highest degree you have received? Associate degree: academic program 01/10/2023 Comments No Sex and Gender Information Value Date Recorded Sex Assigned at Female 02/11/2018 8:36 AM CDT Legal Sex Female 8:24 AM [employer] Gender Identity Female 02/11/2018 8:36 AM CDT Sexual Orientation Straight 02/11/2018 8: 36 AM CDT Last Filed Vital Signs Vital Sign Reading Time Taken Comments Blood Pressure 125/82 01/05/2025 2:15 PM CDT Pulse 73 01/05/2025 2:15 PM CDT Temperature 36.5 C (97.7 F) 01/05/2025 9:01 AM CDT Respiratory Rate 18 01/05/2025 9:01 AM CDT Oxygen Saturation 96% 01/05/2025 2:15 PM CDT Inhaled Oxygen Concentration - - Weight 101 kg (221 lb 12.5 oz) 01/05/2025 8:58 A M CDT Height 172.7 cm (5' 8) 01/05/2025 8:58 AM CDT Body Mass Index 33.72 01/05/2025 8:58 AM CDT Plan of Treatment Health Maintenance Due Date Last Done Comments CT Colonography 1976 Colonoscopy 1976 FIT 1976 HIV Screening 1976 Hepatitis C Screening 1976 Pneumococcal vaccine (0-49 years) (2 of 2 - PCV) 03/16/2005 03/16/2004 Asthma Action Plan 02/27/2017 04/06/2016 COVID-19 Vaccine (3 - season) 2024 07/07/2021, 11/20/2020 Influenza Vaccine (#1) 2024 , 06/23/2021, 07/27/2020, Additional history exists Mammogram 07/30/2024 07/30/2023, 07/17, 05/01/2022 (Performed elsewhere), Additional history exists Depression Monitoring (PHQ-9) 05/03/2025 01/01/2025 Cologuard 10/28/2025 10/28/2022 Colorectal Cancer Screening 10/28/2025 Asthma Control Test Questionnaire 01/01/2026 01/01/2025, 04/06/2016 Asthma Management/Exacerbation Questionnaire (AMQ/AEQ) 01/01/2026 01/01/2025 Fasting Glucose for Diabetes Screening 01/06/2028 01/05/2025, 12/17/2024, 11/14/2024, Additional history exists Lipid (Cholesterol) Screening 07/13/2029 07/13/2024, 05/15/2024, 07/27/2021, Additional history exists DTaP,Tdap,and Td Vaccines (3 - Td or Tdap) 01/04/2031 01/04/2021, 01/26/2011, 04/05/2003, Additional history exists Hepatitis B Vaccines Completed 03/03/2012, 11/07/2011, 10/04/2011 Depression Monitoring (PHQ-9 for quality tracking) Completed 01/01/2025 IPV Vaccines Aged Out No longer eligi ble based on patient's age to complete this topic Medical Devices Implanted Type Area Coil Cutter Device Identifier Shelf Expiration Date Model / Serial / Lot Mesh Or Patch Mesh or Patch Heart Description:Amplatzer Septal Occluder Asd Closure Device 34mm - [employer] [id number] Implanted:Qty: 1 on 06/20/2006 Septal Defect Occluder Device Other/Legacy - See Implant Description Description:Device Manufactu rer - [facility] [employer]. Device Status Text - [id number]. Procedures Procedure Name Priority Date/Time Associated Diagnosis Comments CT HEAD NECK ANGIOGRAM WITH IV CONTRAST RAD - Semiurgent (Fast; most ED patients; some inpatients) 01/05/2025 1:[address] HEAD WITHOUT IV CONTRAST RAD - Semiurgent (Fast; most ED patients; some inpatients) 01/05/2025 1:[address] CHEST ANGIOGRAM AND PULMONARY ARTERIES WITH IV CONTRAST RAD - Semiurgent (Fast; most ED patients; some inpatients) 01/05/2025 1:01 PM CDT THYROID-STIMULATING HORMONE-SENSITIVE (S-TSH) STAT 01/05/2025 12:24 PM CDT TROPONIN T, 2H/6H REFLEX, 5TH GEN, P Timed 01/05/2025 12:24 PM CDT DX CHEST AP OR PA AND LATERAL 2 VIEWS RAD - Semiurgent (Fast; most ED patients; some inpatients) 01/05/2025 11:39 AM CDT PH, U STAT 01/05/2025 9:56 AM CDT DIPSTICK, U STAT 01/05/2025 9:56 AM CDT OSMOLALITY, U STAT 01/05/2025 9:56 AM CDT MICROSCOPIC AUTOMATED STAT 01/05/2025 9:56 AM CDT URINALYSIS WITH MICROSCOPIC STAT 01/05/2025 9:56 AM CDT BACTERIAL CULTURE, AEROBIC + SUSC, URINE STAT 01/05/2025 9:56 AM CDT MAGNESIUM, S STAT 01/05/2025 9:37 AM CDT D-DIMER, P STAT 01/05/2025 9:37 AM CDT NT-PRO B-TYPE NATRIURETIC PEPTIDE (BNP), S STAT 01/05/2025 9:37 AM CDT PROTHROMBIN TIME (PT), P STAT 01/05/2025 9:37 AM CDT TROPONIN T, BASELINE, 5TH GEN, P STAT 01/05/2025 9:37 AM CDT BASIC METABOLIC PANEL, S/P STAT 01/05/2025 9:37 AM CDT CBC WITH DIFFERENTIAL, B STAT 01/05/2025 9:37 AM CDT ECG STAT 01/05/2025 8:58 AM CDT BI BREAST SCREENING BILATERAL WITH TOMOSYNTHESIS RAD - Routine (most inpatients and all outpatients) 07/30/2023 2:38 PM [employer] Screening Mammogram Breast Cancer COLOGUARD Routine 10/28/2022 5:54 PM [employer] Screening Cancer Colon LIPID PANEL, S Routine 02/13/2018 6:56 AM CDT Lizy Danlos Syndrome Chronic Obstructive Pulmonary Disease (HCC) Defect Atrial Septal (HCC) from Last 3 Months or Most Recently Relevant to Health Maintenance Results * CT Chest Angiogram and Pulmonary Arteries with IV Contrast (01/05/2025 1:01 PM CDT) Anatomical Region Laterality Modality Chest, Cardiovascular RST LO S, Thoracic ARZ LOS, Thoracic FLA LOS N/A Computed Tomography, Compute d Tomography 01/05/2025 12:5 4 PM CDT Impressions 01/05/2025 1:07 PM CDT Negative for acute pulmonary embolism. Narrative 01/05/2025 1:07 PM CDT EXAM: CT CHEST ANGIOGRAM AND PULMONARY ARTERIES WITH IV CONTRAST COMPARISON: CTA chest 04/21/2010 FINDINGS: Negative for acute pulmonary embolism. Normal caliber main pulmonary artery. Mild emphysematous changes in the upper lungs. Scattered mosaic attenuation in the lower lungs which may be related to small airways disease. Subsegmental atelectasis in the lung bases. Atrial septum occlusion device. Slight pectus excavatum with deviation of the mediastinum to the left. Tiny esophageal hiatal hernia. Partially visualized upper abdomen is unremarkable. Osseous hemangioma in the T11 vertebral body. No rib fractures. Procedure Note Dillan Jo M.D. - 01/05/2025 EXAM: CT CHEST ANGIOGRAM AND PULMONARY ARTERIES WITH IV CONTRAST COMPARISON: CTA chest 04/21/2010 FINDINGS: Negative for acute pulmonary embolism. Normal caliber main pulmonaryartery. Mild emphysematous changes in the upper lungs. Scattered mosaicattenuation in the lower lungs which may be related to small airwaysdisease. Subsegmental atelectasis in the lung bases. Atrial septum occlusion device. Slight pectus excavatum with deviation ofthe mediastinum to the left. Tiny esophageal hiatal hernia. Partially visualized upper abdomen isunremarkable. Osseous hemangioma in the T11 vertebral body. No ribfractures. IMPRESSION: Negative for acute pulmonary embolism. Carmencita Grcaia APRN, C.N.P., D.N.P., M.S.N. IMG CT PROCEDURES Final Result * CT Head without IV Contrast (01/05/2025 1:01 PM CDT) Anatomical Region Laterality Modality Head, Neuroradiology RST LOS , Neuroradiology ARZ LOS, Neuroradiology FLA LOS N/A Computed Tomography, Compute d Tomography Impressions 01/05/2025 1:16 PM CDT 1. No acute intracranial abnormality. 2. No large vessel occlusion or hemodynamically significant stenosis in the major vessels of the head and neck. Narrative 01/05/2025 1:16 PM CDT REVISED REPORT: EXAM: CT HEAD WITHOUT IV CONTRAST, CT HEAD NECK ANGIOGRAM WITH IV CONTRAST Including 3D image post-processing with or without AI assistance. COMPARISON: Head CT 02/23/2023 and CTA head and neck 02/25/2023. Brain MRI 09/28/2022. FINDINGS: HEAD CT: No intracranial hemorrhage, mass effect, or hydrocephalus. No evidence of recent infarction. Mild mucosal thickening or secretions in the posterior left ethmoid air cells and left sphenoid sinus. The paranasal sinuses are otherwise well aerated, improved since 09/25/2022. Mastoid air cells are clear. CTA HEAD: Unchanged mild narrowing of the supraclinoid left ICA. No intracranial aneurysm or large vessel occlusion or hemodynamically significant stenosis. Patent anterior communicating arteries. The posterior communicating arteries are not well-visualized and likely diminutive. CTA NECK: Conventional aortic arch anatomy. The common, internal, and external carotid arteries are widely patent and normal in caliber. The vertebral arteries are widely patent with mild left dominance. Evaluation of the proximal right vertebral artery is mildly limited by adjacent artifact from the bolus, without obvious abnormality. Emphysematous changes in the visualized upper lungs. Reversal of the normal cervical lordosis with mild spondylotic changes. Procedure Note Jerod Smallwood M.D. - 01/12/2025 REVISED REPORT: EXAM: CT HEAD WITHOUT IV CONTRAST, CT HEAD NECK ANGIOGRAM WITH IVCONTRAST Including 3D image post-processing with or without AI assistance. COMPARISON: Head CT 02/23/2023 and CTA head and neck 02/25/2023. Brain MRI09/28/2022. FINDINGS: HEAD CT: No intracranial hemorrhage, mass effect, or hydrocephalus. Noevidence of recent infarction. Mild mucosal thickening or secretions inthe posterior left ethmoid air cells and left sphenoid sinus. Theparanasal sinuses are otherwise well aerated, improved since 09/25/2022. Mastoid air cells are clear. CTA HEAD: Unchanged mild narrowing of the supraclinoid left ICA. Nointracranial aneurysm or large vessel occlusion or hemodynamicallysignificant stenosis. Patent anterior communicating arteries. Theposterior communicating arteries are not well-visualized and likely diminutive. CTA NECK: Conventional aortic arch anatomy. The common, internal, andexternal carotid arteries are widely patent and normal in caliber. Thevertebral arteries are widely patent with mild left dominance. Evaluationof the proximal right vertebral artery is mildly limited by adjacent artifact from the bolus, without obviousabnormality. Emphysematous changes in the visualized upper lungs. Reversal of thenormal cervical lordosis with mild spondylotic changes. IMPRESSION: 1. No acute intracranial abnormality. 2. No large vessel occlusion or hemodynamically significant stenosis inthe major vessels of the head and neck. us Carmencita Gracia APRN, C.N.P., D.N.P., M.S.N. IMG CT PROCEDURES Edited Result - Final * CT Head Neck Angiogram with IV Contrast (01/05/2025 1:01 PM CDT) Anatomical Region Laterality Modality Head and Neck, Neuroradiolog y RST LOS, Neuroradiology ARZ [facility], Neuroradiology FLA LOS N/A Computed Tomography, Compute d Tomography 01/05/2025 12:4 8 PM CDT Impressions 01/05/2025 1:16 PM CDT 1. No acute intracranial abnormality. 2. No large vessel occlusion or hemodynamically significant stenosis in the major vessels of the head and neck. Narrative 01/05/2025 1:16 PM CDT REVISED REPORT: EXAM: CT HEAD WITHOUT IV CONTRAST, CT HEAD NECK ANGIOGRAM WITH IV CONTRAST Including 3D image post-processing with or without AI assistance. COMPARISON: Head CT 02/23/2023 and CTA head and neck 02/25/2023. Brain MRI 09/28/2022. FINDINGS: HEAD CT: No intracranial hemorrhage, mass effect, or hydrocephalus. No evidence of recent infarction. Mild mucosal thickening or secretions in the posterior left ethmoid air cells and left sphenoid sinus. The paranasal sinuses are otherwise well aerated, improved since 09/25/2022. Mastoid air cells are clear. CTA HEAD: Unchanged mild narrowing of the supraclinoid left ICA. No intracranial aneurysm or large vessel occlusion or hemodynamically significant stenosis. Patent anterior communicating arteries. The posterior communicating arteries are not well-visualized and likely diminutive. CTA NECK: Conventional aortic arch anatomy. The common, internal, and external carotid arteries are widely patent and normal in caliber. The vertebral arteries are widely patent with mild left dominance. Evaluation of the proximal right vertebral artery is mildly limited by adjacent artifact from the bolus, without obvious abnormality. Emphysematous changes in the visualized upper lungs. Reversal of the normal cervical lordosis with mild spondylotic changes. Procedure Note Jerod Smallwood M.D. - 01/12/2025 REVISED REPORT: EXAM: CT HEAD WITHOUT IV CONTRAST, CT HEAD NECK ANGIOGRAM WITH IVCONTRAST Including 3D image post-processing with or without AI assistance. COMPARISON: Head CT 02/23/2023 and CTA head and neck 02/25/2023. Brain MRI09/28/2022. FINDINGS: HEAD CT: No intracranial hemorrhage, mass effect, or hydrocephalus. Noevidence of recent infarction. Mild mucosal thickening or secretions inthe posterior left ethmoid air cells and left sphenoid sinus. Theparanasal sinuses are otherwise well aerated, improved since 09/25/2022. Mastoid air cells are clear. CTA HEAD: Unchanged mild narrowing of the supraclinoid left ICA. Nointracranial aneurysm or large vessel occlusion or hemodynamicallysignificant stenosis. Patent anterior communicating arteries. Theposterior communicating arteries are not well-visualized and likely diminutive. CTA NECK: Conventional aortic arch anatomy. The common, internal, andexternal carotid arteries are widely patent and normal in caliber. Thevertebral arteries are widely patent with mild left dominance. Evaluationof the proximal right vertebral artery is mildly limited by adjacent artifact from the bolus, without obviousabnormality. Emphysematous changes in the visualized upper lungs. Reversal of thenormal cervical lordosis with mild spondylotic changes. IMPRESSION: 1. No acute intracranial abnormality. 2. No large vessel occlusion or hemodynamically significant stenosis inthe major vessels of the head and neck. Carmencita Gracia APRN, C.N.P., D.N.P., M.S.N. [facility] PROCEDURES Edited Result - Final * Troponin T, 2 Hour with 6 Hour Reflex, 5th Gen (01/05/2025 12:24 PM CDT) Troponin T, 2 hr, 5th gen <6 <=10 ng/L 01/05/2025 1:01 PM CDT STMA 2H Delta 0 ng/L 01/05/2025 1:01 PM CDT STMA Comment:6 hour collection no t indicated. 2H Delta Interp Not Changing 01/05/2025 1:01 PM CDT STMA Blood 01/05/2025 12:2 4 PM CDT 01/05/2025 12:34 PM CDT Clarissa Vogel P.A.-C. LAB BLOOD TROPONIN Final Result Performing Organization Address City/[facility]/ZIP Co de Phone Number [facility] [address] [place] [address] * S-TSH (Thyroid-Stimulating Hormone - Sensitive) (01/05/2025 12:24 PM CDT) TSH, Sensitive 3.9 0.3 - 4.2 mIU/L 01/05/2025 1:19 PM CDT DTL Blood (Blood, Venous) 01/05/2025 12:24 PM CDT 01/05/2025 12:51 PM CDT Carmencita Gracia APRN, C.N.P., D.N.P., M.S.N. LAB BLOOD ADD-ON Final Result [facility] [address] [place] [address] * DX Chest AP or PA and Lateral 2 Views (01/05/2025 11:39 AM CDT) Anatomical Region Laterality Modality Chest, Thoracic RST LOS, Tho racic ARZ LOS, Thoracic FLA LOS N/A Digital Radiography Impressions 01/05/2025 11:41 AM CDT Since 10/12/2022, no significant change. No focal pulmonary consolidation, pleural effusion, or pneumothorax. Atrial septal occlusion device. Pectus excavatum. Narrative 01/05/2025 11:41 AM CDT EXAM: DX CHEST AP OR PA AND LATERAL 2 VIEWS Procedure Note Syed Vega M.D. - 01/05/2025 EXAM: DX CHEST AP OR PA AND LATERAL 2 VIEWS IMPRESSION: Since 10/12/2022, no significant change. No focal pulmonary consolidation,pleural effusion, or pneumothorax. Atrial septal occlusion device. Pectusexcavatum. Clarissa Vogel P.A.-C. IMG DIAGNOSTIC IMAGING [place] OCEDURES Final Result * (ABNORMAL) Dipstick, Urine (01/05/2025 9:56 AM CDT) Hemoglobin, QL, U Negative Negative 01/05/2025 10:27 AM CDT DTL Leukocyte Esterase, U Small(A) Negative 01/05/2025 10:27 AM CDT DTL Nitrite, U Negative Negative 01/05/2025 10:27 AM CDT DTL Ketone, U Negative Negative mg/dL 01/05/2025 10:27 AM CDT DTL Glucose, U Negative Negative mg/dL 01/05/2025 10:27 AM CDT DTL Urine 01/05/2025 9:56 AM CDT 01/05/2025 10:13 AM CDT Carmencita Gracia APRN, C.N.P., D.N.P., M.S.N. LAB URINE ORDERABLES Final Result [facility] [address] [place] [address], [facility] DTL [facility] [address] [place] [address] * Microscopic Automated (01/05/2025 9:56 AM CDT) Pathologist [facility] Microscopy Normal 01/05/2025 10:27 AM CDT DTL RBC <3 <3 /hpf 01/05/2025 10:27 AM CDT DTL WBC 1-3 /hpf 01/05/2025 10:27 AM CDT DTL Comment: ----REFERENCE VALUE---- <4 (Males) <11 (Females) Squamous Epithelial Cells, U 1-3 /hpf 01/05/2025 10:27 AM CDT DTL Urine 01/05/2025 9:56 AM CDT 01/05/2025 10:13 AM CDT Adia Menard APRN.N.P., D.N.P., M.S.N. LAB URINE ORDERABLES Final Result Performing Organization Address [facility] Co de Phone Number [facility] [address] [place] [address] * Bacterial Culture, Aerobic + Susceptibility, Urine (01/05/2025 9:56 AM CDT) [facility] Urine Culture Urogenital microbiota, susceptibilities not performed per laboratory criteria. 01/06/2025 12:20 PM CDT DT Urine (Urine, Midstream) 01/05/2025 9:56 AM CDT 01/05/2025 10:35 AM CDT Comment:Specimen Source Site : Urine Adia Menard APRN.N.P. , D.N.P., M.S.N. LAB MICROBIOLOGY - GENERAL ORDERABLES Final Result Performing Organization Address City/[facility]/ZIP Co de Phone Number [facility] [address] [place] [address] * pH, Urine (01/05/2025 9:56 AM CDT) Pathologist [facility] pH, U 6.1 4.5 - 8.0 01/05/2025 10: 28 AM CDT DTL Urine 01/05/2025 9:56 AM CDT 01/05/2025 10:13 AM CDT Adia Menard APRN.N.P., Abisai.N.P., M.S.N. LAB URINE ORDERABLES Final Result Performing Organization Address City/[facility] Co de Phone Number [facility] [address] [place] [address], [facility] [address] [place] [address] * Osmolality, Urine (01/05/2025 9:56 AM CDT) [facility] Osmolality, U 157 150 - 1150 mOsm/kg 01/05/2025 10:28 AM CDT DT Urine 01/05/2025 9:56 AM CDT 01/05/2025 10:13 AM CDT Adia Menard APRN.N.P., D.N.P., M.S.N. LAB URINE ORDERABLES Final Result Performing Organization Address [facility] de Phone Number [facility] [address] [place] [address], [facility] [address] [place] [address] * (ABNORMAL) Urinalysis, with Microscopic: Urine, Midstream (01/05/2025 9:56 AM CDT) Source Urine, Urine, Midstream 01/05/2025 10:13 AM CDT DTL Color, U Yellow 01/05/2025 10:13 AM CDT DTL Clarity, U Clear 01/05/2025 10:13 AM CDT DTL Protein, U 5 <26 mg/dL 01/05/2025 11:07 AM CDT DTL Protein/Osmol ality 0.32 <0.42 ratio 01/05/2025 11:07 AM CDT DTL Predicted 24 HR Protein, U 237(H) <229 mg/24 h 01/05/2025 11:07 AM CDT DTL Predicted Range 58-958 mg/24 h 01/05/2025 11:07 AM CDT DTL Urine (Urine, Midstream) 01/05/2025 9:56 AM CDT 01/05/2025 10:13 AM CDT Carmencita Gracia APRN, C.N.P., D.N.P., M.S.N. LAB URINE ORDERABLES Final Result [facility] [address] DTL [facility] [address] [place] [address] * Troponin T, Baseline with 2 Hour/6 Hour Reflex Biomarker Panel (01/05/2025 9:37 AM CDT) Pathologist [facility] Troponin T, Baseline, 5th gen <6 <=10 ng/L 01/05/2025 10:10 AM CDT [facility] Blood (Blood, Venous) 01/05/2025 9:37 AM CDT 01/05/2025 9:43 AM CDT Clarissa Vogel P.A.-C. LAB BLOOD TROPONIN Final Result [facility] [address] [facility] 200 [place] [address] * NT-Pro B-Type Natriuretic Peptide (BNP) (01/05/2025 9:37 AM CDT) Pathologist [facility] NT-Pro BNP 70 <=141 pg/mL 01/05/2025 10:10 AM CDT [facility] Comment: NT-proBNP values less than 300 pg/mL have a 99% negative predictive value for excluding acute congestive heart failure. A cutoff of 1200 pg/mL for patients with an eGFR<60 yields a diagnostic sensitivity and specificity of 89% and 72% for acute congestive heart failure. NT-proBNP values greater than 450 pg/mL are consistent with CHF in adults under 50 years of age. Blood (Blood, Venous) 01/05/2025 9:37 AM CDT 01/05/2025 9:43 AM CDT Clarissa Vogel P.A.-C. LAB BLOOD ADD-ON Final Re sult Performing Organization Address City/[facility] Co de Phone Number [facility] [address] [place], [place] [address] [place] [address] 200 [place] [address] * Prothrombin Time (PT) (01/05/2025 9:37 AM CDT) Prothrombin Time, P 10.0 9.4 - 12.5 sec 01/05/2025 9:52 AM CDT [facility] INR 0.9 0.9 - 1.1 01/05/2025 9:52 AM CDT [facility] Comment: ----ADDITIONAL INFORMATION---- Standard intensity warfarin therapeutic range: 2.0 to 3.0 High intensity warfarin therapeutic range: 2.5 to 3.5 Blood (Blood, Venous) 01/05/2025 9:37 AM CDT 01/05/2025 9:43 AM CDT Clarissa Vogel P.A.-C. LAB BLOOD ADD-ON Final Re sult Performing Organization Address [facility] Co de Phone Number [facility] [address] [place] [address], [facility] [address] [place] [address] * (ABNORMAL) D-Dimer (01/05/2025 9:37 AM CDT) Pathologist [facility] D-Dimer, P 968(H) <=500 ng/mL FEU 01/05/2025 10:43 AM CDT [facility] Comment: ----ADDITIONAL INFORMATION---- D-dimer values less than or equal to 500 ng/mL fibrinogen equivalent units (FEU) may be used in conjunction with clinical pre-test probability to exclude deep vein thrombosis (DVT) and/or pulmonary embolism (PE). Blood (Blood, Venous) 01/05/2025 9:37 AM CDT 01/05/2025 10:10 AM CDT Carmencita Gracia APRN, C.N.P., D.N.P., M.S.N. LAB BLOOD ADD-ON Final Result [facility] [address] [place] [address], [facility] [address] [place] [address] * (ABNORMAL) CBC with Differential, Blood (01/05/2025 9:37 AM CDT) Pathologist [facility] Hemoglobin 14.7 11.6 - 15.0 g/dL 01/05/2025 9:52 AM CDT [facility] Hematocrit 44.9 35.5 - 44.9 % 01/05/2025 9:52 AM CDT [facility] Erythrocytes 4.91 3.92 - 5.13 x10(12)/L 01/05/2025 9:52 AM CDT [facility] MCV 91.4 78.2 - 97.9 fL 01/05/2025 9:52 AM CDT [facility] RBC Distrib Width 12.0(L) 12.2 - 16.1 % 01/05/2025 9:52 AM CDT [facility] Platelet Count 261 157 - 371 x10(9)/L 01/05/2025 9:52 AM CDT [facility] Leukocytes 12.0(H) 3.4 - 9.6 x10(9)/L 01/05/2025 9:52 AM CDT [facility] Neutrophils 6.93(H) 1.56 - 6.45 x10(9)/L 01/05/2025 9:52 AM CDT [facility] Lymphocytes 3.98(H) 0.95 - 3.07 x10(9)/L 01/05/2025 9:52 AM CDT [facility] Monocytes 0.70 0.26 - 0.81 x10(9)/L 01/05/2025 9:52 AM CDT [facility] Eosinophils 0.31 0.03 - 0.48 x10(9)/L 01/05/2025 9:52 AM CDT [facility] Basophils 0.05 0.01 - 0.08 x10(9)/L 01/05/2025 9:52 AM CDT [facility] Blood (Blood, Venous) 01/05/2025 9:37 AM CDT 01/05/2025 9:43 AM CDT Clarissa Vogel P.A.-C. LAB BLOOD ADD-ON Final Re sult [facility] [address] [facility] [address] 200 [place] [address] * Magnesium (01/05/2025 9:37 AM CDT) Magnesium, P 2.1 1.7 - 2.3 mg/dL 01/05/2025 10:41 AM CDT [facility] Blood (Blood, Venous) 01/05/2025 9:37 AM CDT 01/05/2025 10:21 AM CDT Carmencita Gracia APRN, C.N.P., D.N.P., M.S.N. LAB BLOOD ADD-ON Final Result [facility] [address] [place] [address] * Basic Metabolic Panel (01/05/2025 9:37 AM CDT) Potassium, P 3.7 3.6 - 5.2 mmol/L 01/05/2025 10:08 AM CDT [facility] Sodium, P 140 135 - 145 mmol/L 01/05/2025 10:08 AM CDT [facility] Chloride, P 100 98 - 107 mmol/L 01/05/2025 10:08 AM CDT [facility] Bicarbonate, P 26 22 - 29 mmol/L 01/05/2025 10:08 AM CDT [facility] Anion Gap, P 14 7 - 15 01/05/2025 10:08 AM CDT [facility] BUN (Blood Urea Nitrogen), P 19 6 - 21 mg/dL 01/05/2025 10:08 AM CDT [facility] Creatinine 0.76 0.59 - 1.04 mg/dL 01/05/2025 10:08 AM CDT [facility] Estimated GFR (eGFR) >90 >=60 mL/min/BSA 01/05/2025 10:08 AM CDT [facility] Comment: Estimated GFR calculated using the 2020 CKD_EPI creatinine equation. Calcium, Total, P 9.8 8.6 - 10.0 mg/dL 01/05/2025 10:08 AM CDT [facility] Glucose, P 80 70 - 140 mg/dL 01/05/2025 10:08 AM CDT [facility] Blood (Blood, Venous) 01/05/2025 9:37 AM CDT 01/05/2025 9:43 AM CDT Clarissa Vogel P.A.-C. LAB BLOOD ADD-ON Final Re sult [facility] [address] [place] [address], [facility] [address] [place] [address] * ECG 12 Lead (01/05/2025 8:58 AM CDT) Ventricular Rate ECG/Min 85 BPM MUSE OH Interval 152 ms MUSE QRSD Interval 90 ms MUSE QT Interval 344 ms MUSE QTC Interval 409 ms MUSE P Pryor 54 degrees MUSE R Pryor 42 degrees MUSE T Wave Pryor 0 degrees MUSE 01/05/2025 8:58 AM CDT 01/05/2025 9:15 AM CDT Impressions MUSE - 01/05/2025 9:15 AM CDT Sinus rhythm T wave abnormality, consider inferior ischemia Nonspecific T wave abnormality When compared with ECG of 28-Sep-2022 09:12, Premature ventricular complexes are no longer present T wave inversion more evident in Inferior leads Reviewed by MARIAH Ramey Narrative Procedure Note Tee Busch M.D. - 01/05/2025 IMPRESSION: Sinus rhythm T wave abnormality, consider inferior ischemia Nonspecific T wave abnormality When compared with ECG of 28-Sep-2022 09:12, Premature ventricular complexes are no longer present T wave inversion more evident in Inferior leads Reviewed by MARIAH Ramey us Carmencita Gracia APRN, C.N.P., D.N.P., M.S.N. ECG ORDERABLES Final Result MUSE NA * BI Breast Screening Bilateral with Tomosynthesis (07/30/2023 2:38 PM SPRING UPHOLSTERER) Anatomical Region Laterality Modality Breast, Breast Imaging RST L OS, Breast Imaging ARZ LOS, Breast Imaging FLA LOS Bilateral Mammography 08/01/2023 12:2 8 PM SPRING UPHOLSTERER Impressions 08/01/2023 12:33 PM SPRING UPHOLSTERER Negative. RECOMMENDATION: Annual Screening Mammogram ASSESSMENT: BI-RADS: 1: Negative. Narrative 08/01/2023 12:33 PM SPRING UPHOLSTERER EXAM: BI BREAST SCREENING BILATERAL WITH TOMOSYNTHESIS [...] Darius Shaw M.D. IMG BI PROCEDURES Final R esult * Cologuard-Sent Out Lab (10/28/2022 5:54 PM SPRING UPHOLSTERER) Result Negative Negative 11/03/2022 2:48 AM SPRING UPHOLSTERER EXLI Comment: NEGATIVE TEST RESULT. A negative [...] were screened with both Cologuard and colonoscopy. (Yneny Melchor. et al, N Engl J Med 2014;370(14):7855-9702) The normal value (reference range) for this assay is negative. COLOGUARD RE-SCREENING RECOMMENDATION: Periodic colorectal cancer screening is an important part of preventive healthcare for asymptomatic individuals at average risk for colorectal cancer. Following a negative Cologuard result, the [place] [employer] Society and U.S. Multi-Society Task Force screening guidelines recommend a Cologuard re-screening interval of 3 years. References: [place] [employer] Guideline for Colorectal Cancer Screening: https://www.cancer.org/cancer/ohrft-pdlaqd-xcxizm/detection- diagnosis-staging/acs-recommendations.html.; Ming DK, Barbra CR, Erna SimsK, Colorectal Cancer Screening: Recommendations for Physicians and Patients from the U.S. Multi-Society Task Force on Colorectal Cancer Screening , Am J Gastroenterology 2017; 112:5421-8129. TEST DESCRIPTION: Composite algorithmic analysis of stool [...] Gates et al, N Engl J Med 2014;370(14):3077-1925.) Cologuard may produce a false negative or false positive result (no colorectal cancer or precancerous polyp present at colonoscopy follow up). A negative Cologuard test result does not guarantee the absence of CRC or advanced adenoma (pre-cancer). The current Cologuard screening interval is every 3 years. ([place] [employer] and U.S. Multi-Society Task Force). Cologuard performance data in a 10,000 patient pivotal study using colonoscopy as the reference method can be accessed at the following location: www.[employer]/results. Additional description of the Cologuard test process, warnings and precautions can be found at www.cologuard.com. Stool (Stool) 10/28/2022 5:5 4 PM SPRING UPHOLSTERER 10/30/2022 1:57 PM SPRING UPHOLSTERER us Darius Shaw M.D. LAB BODY FLUIDS AND STOOL S ORDERABLES Final Result Natanael Ulien [address] [place] [address] EXLI [address]um [address] [facility], [address] [place] [address] * (ABNORMAL) Lipid Panel (02/13/2018 6:56 AM CDT) Cholesterol, Total 200(H) mg/dL 02/13/2018 8:08 AM CDT [facility] Comment: ----REFERENCE VALUE---- Desirable: < 200 Borderline high: 200 - 239 High: > or = 240 Triglycerides 143 mg/dL 02/13/2018 8:08 AM CDT [facility] Comment: ----REFERENCE VALUE---- Normal: <150 Borderline high: 150-199 High: 200-499 Very high: > or =500 Cholesterol, HDL, S 49(L) >=50 mg/dL 02/13/2018 8:08 AM CDT [facility] Calculated LDL 122 mg/dL 02/13/2018 8:08 AM CDT [facility] Comment: ----REFERENCE VALUE---- Desirable: <100 Above Desirable: 100-129 Borderline high: 130-159 High: 160-189 Very high: > or =190 Cholesterol, Non-HDL, Calculated 151 mg/dL 02/13/2018 8:08 AM CDT [facility] Comment: ----REFERENCE VALUE---- Desirable: <130 Above Desirable: 130-159 Borderline high: 160-189 High: 190-219 Very high: > or =220 Blood 02/13/2018 6:56 AM CDT 02/13/2018 7:18 AM CDT Dominique Mcgowan M.D. LAB BLOOD ADD-ON Final Result [facility] [address] [place] [address], [facility] from Last 3 Months or Most Recently Relevant to Health Maintenance Insurance [facility] Advance Directives For more information, please contact: [phone] * Full Code (Latest Code Status on File) Date Activated Date Inactivated Comments 09/30/2022 4:41 PM 10/02/2022 6:08 PM Question Answer Comments Full Code: Discussed Care Teams Capacity Manager Relationship Specialty Start Date End Date Darius Shaw M.D. [id number] [place] [address] [phone] PCP - General Family Medicine 09/27/22
--- OUTSIDE RECORDS SUMMARY | 2025-03-09 12:24 | XMS_ITS | Encounter Summary ---
Author Organization [employer] Address [address] [place] [address] Care Team Providers Care Heating Element Builder Name Role Phone Winston Villatoro Se OD Unavailable [phone] Denise Woodson APRN SWIMMING COACH Unavailable [phone] Denise Woodson APRN SWIMMING COACH Primary Care Provider Usha Simon APRN SWIMMING COACH Unavailable + [phone] Dangelo Salinas MD Unavailable Anastasia Stearns RN Unavailable Germaine Aleman CHW Unavailable [phone] Lisa Zambrano MD Unavailable Raul Hoyos MD Unavailable Joya Lira [facility] Unavailable [phone] Joya Lira [facility] Unavailable [phone] aFbi Coates MD Unavailable [phone] Robin Zepeda MD Unavailable [phone] Danna Cardenas PA-C Unavailable [phone] Felicita Desai RN Unavailable Unavailab Arthur Rios EVAPORATOR OPERATOR [employer]OL[employer]ES Unavailable [phone] Randy Maradiaga DO Unavailable + Tete Wang MD Unavailable Dahlia Joyce MD Unavailable [phone] Lisa Zambrano MD Unavailable + [phone] Tete Wang MD Unavailable [phone] Any Joiner MD Unavailable [phone] Encounter Details Date Type Department Care Team (Late st Contact Info) Description 06/28/[address] [facility] [address] [place] [address] Denise Woodson APRN [facility] [address] [place] [address] Social History Tobacco Use Types [...] How often do you attend adventism or jew serv ices? Never 02/28/2024 Do [...] Answer Date Recorded PHQ-2 Score 2 07/02/2024 [facility] - Occupational Stress Questionnaire [...] on file Legal Sex Female 4:05 AM PRODUCTION SUPPORT CONSULTANT Gender Identity Not on file Sexual [...] at a low dose. Pharmacy T'd up. Lubna Betancourt, BSN, RN [facility] 07/02/2024 at 9:48 AM * [...] well. CHIKIS * Telephone Encounter - Qing Valentine - 06/29/2024 9:08 AM CDT Routing to provider to advise. Qing Copeland Lead Lab Instructor [facility] documented in this encounter Plan of Treatment Upcoming Encounters Date Type Department Care Team (Late st Contact Info) Description 03/16/2025 8:00 AM CDT Virtual Visit [facility] [address] [phone] Bindu Bueno OD [address] [place] [address] Rubi Johnson, OT [address] [address] 03/26/2025 12:45 PM CDT Therapy Visit [address] [phone] Bindu Bueno, OD [address] [place] [address] Rubi Johnson, OT [address] [address] 04/02/2025 9:30 AM CDT Therapy Visit [address] [phone] Randy Maradiaga, DO [address] [place] [address] Delicia George, PT [address] [place] [address] 04/06/2025 11:00 AM CDT Virtual Visit [address] [phone] Bindu Bueno, OD [address] [place] [address] Rubi Johnson, OT [address] [address] 04/06/2025 12:30 PM CDT Therapy Visit [address] [phone] Randy Maradiaga, DO [address] [place] [address] Delicia George, PT [address] [place] [address] 04/16/2025 11:00 AM CDT Therapy Visit [address] [phone] Bindu Bueno, OD [address] [place] [address] Rubi Johnson, OT [address] [address] 04/23/2025 12:45 PM CDT Therapy Visit [address] [phone] Bindu Bueno, OD [address] [place] [address] Rubi Johnson, OT [address] [address] 04/23/2025 2:00 PM CDT Therapy Visit [address] [phone] Randy Maradiaga, DO [address] [place] [address] Delicia George, PT [address] [place], [place] [address] 04/30/2025 10:15 AM CDT Therapy Visit [address] [phone] Randy Maradiaga, DO [address] [place] [address] Delicia George, PT [address] [facility] [place] [address] 05/04/2025 11:00 AM CDT Virtual Visit [address] [phone] Bindu Bueno, OD [address] [place] [address] Rubi Johnson, OT [address] [address] 05/07/2025 10:15 AM CDT Therapy Visit [address] [phone] Randy Maradiaga, DO [address] [place] [address] Delicia George, PT [address] [facility] [place] [address] 05/14/2025 10:15 AM CDT Therapy Visit [address] [phone] Randy Maradiaga, [address] [place] [address] Delicia George, PT [address] [place] [address] 05/14/2025 11:00 AM CDT Therapy Visit [facility] [address] [phone] Bindu Bueno, OD [address] [place], [place] [address] Rubi Johnson, OT [facility] [address] [place] [address] 06/01/2025 11:15 AM CDT Appointment [facility] [address] [place] [phone] Robin Zepeda MD [address] [place] [address] 06/02/2025 2:20 PM CDT Virtual Visit [facility] [address] [phone] Robin Zepeda MD [address] [place] [address] 07/01/2025 12:00 PM CDT Virtual Visit [facility] [address] [phone] Santa Men[place], PA-C [address] [place] [address] 08/03/2025 4:30 PM PRODUCTION SUPPORT CONSULTANT Virtual Visit [facility] [place] [address] [place] [phone] Any Joiner MD [address] [facility] [address] [place], [place] [phone] documented as of this encounter Visit Diagnoses Not on filedocumented in this encounter Additional Health Concerns Infection Onset Date Last Indicated Resolved Time Rule Out COVID-19 09/13/2024 09/13/2024 09/13/2024 12:31 PM PRODUCTION SUPPORT CONSULTANT Rule Out COVID-19 11/14/2024 11/14/2024 11/14/2024 8:25 PM PRODUCTION SUPPORT CONSULTANT Assessment Noted Time PHQ-9 Depression Total Score: 5 03/17/20 24 9:45 AM CDT documented as of this encounter Care Teams Heating Element Builder Relationship Specialty Start Date End Date Winston Villatoro OD [facility] [place] [address] [facility] [address] [place] [address] PCP - Ophthalmology Ophthalmology 02/11/13 Denise Woodson APRN SWIMMING COACH [address] [place] [address] PCP - General Family Practice 09/21/20 Denise Woodson APRN SWIMMING COACH [address] [place] [address] Assigned PCP 07/17/20 Usha Simon APRN SWIMMING COACH [address] [id number] [place] [address] Nurse Practitioner Neurological Surgery 01/24/24 Dangelo Salinas MD [address] [place] [address] [place] [address] Neurology 01/27/24 Anastasia Stearns, RN Lead Third Rail Installer 02/06/24 12/17/24 Germaine Aleman, W Community Health Worker Primary Care - CC 02/18/2412/17/24 Lisa Zambrano MD [address] [facility] [address] [place] [address] Assigned Heart and Vascular Provider 05/08/24 07/07/24 Raul Hoyos MD [address] [place] [address]8475 Assigned Neuroscience Provider 05/08/24 07/07/24 Joya Lira [facility] [address] [place] [address] Pharmacist Pharmacist 05/25/24 Joya Lira [facility] [address] [place] [address] Assigned MTM Pharmacist 06/08/24 Fabi Coates MD [address] [place] [address] 75 [place] [address] Genetics, Clinical 06/18/24 Robin Zepeda MD [address] [place] [address] Assigned Neuroscience Provider 07/08/24 08/07/24 Danna Cardenas PA-C [address] [place] [address] Assigned Heart and Vascular Provider 07/08/24 12/05/24 Felicita Desai, RN Lead Third Rail Installer 07/14/24 07/28/24 Arthur Salas, [facility] [address] [place] [address] Assigned Behavioral Health Provider 08/08/24 Randy Maradiaga DO [address] [place], [place] [phone] Assigned Neuroscience Provider 08/08/24 Tete Wang MD [address] [place] [address] [id number] Genetics, Clinical 10/30/24 Dahlia Joyce MD [address] [place], [place] [address] Radiology Neuroradiology 11/17/24 Lisa Zambrano MD [address] [address] Assigned Heart and Vascular Provider 12/06/24 Tete Wang MD [address] [place] [address] 426484 Assigned Pediatric Specialist Provider 01/06/25 Any Joiner MD [address] [place] [address] [id number] Assigned Pulmonology Provider 02/05/25 documented as of this encounter
--- OUTSIDE RECORDS SUMMARY | 2025-03-09 12:24 | XMS_ITS | Encounter Summary ---
Author Organization [place] Address [address] [place] [address] Care Team Providers Care Supervisor Ornamental Ironworking Name Role Phone Winston Villatoro Se OD Unavailable [phone] Denise Woodson APRN WINDOW TINTER Unavailable +[phone] Denise Woodson APRN WINDOW TINTER Primary Care Provider Usha Simon APRN WINDOW TINTER Unavailable + [phone] Dangelo Salinas MD Unavailable Anastasia Stearns RN Unavailable Germaine Aleman CHW Unavailable +[phone] Lisa Zambrano MD Unavailable Raul Hoyos MD Unavailable Joya Lira [facility] Unavailable [phone] Joya Lira [facility] Unavailable +[phone] Fabi Coates MD Unavailable [phone] Robin Zepeda MD Unavailable +[phone] Danna Cardenas PA-C Unavailable +[phone] Felicita Desai RN Unavailable Unavailab Arthur Rios CARTON INSPECTOR Unavailable +[phone] Randy Maradiaga DO Unavailable + Tete Wang MD Unavailable [phone] Dahlia Joyce MD Unavailable +[phone] Lisa Zambrano MD Unavailable + [phone] Tete Wang MD Unavailable [phone] Any Joiner MD Unavailable +[phone] Encounter Details Date Type Department Care Team (Late st Contact Info) Description 05/27/2024 MyC Medical Advice Se Physicians [facility] [place] [facility] [address], [address] [place] [address] Rohit Barcenas MD 420 [facility] 295 [place] [address] Social History Tobacco Use Types [...] How often do you attend temple or baptism serv ices? Never 02/28/2024 Do [...] Score 2 05/05/2024 [facility] - Occupational Stress Questionnaire Answer Date Recorded [...] on file Legal Sex Female 4:05 AM COOK RAILROAD Gender Identity Not on file Sexual Orientation [...] Description 03/16/2025 8:00 AM CDT Virtual Visit [address] [phone] Bindu Bueno, OD 909 [place], [place] 7[address]255 Rubi Johnson, OT [address] 002237 03/26/2025 12:45 PM CDT Therapy Visit [address] [phone] BuenoBindu flores, OD 909 [place], [place] 9436[address] Rubi Johnson, OT [address] 014397 04/02/2025 9:30 AM CDT Therapy Visit [address] [phone] Randy Maradiaga, DO 909 [place], [place] 124675 Delicia George, PT [address] [place], [place] 963127 04/06/2025 11:00 AM CDT Virtual Visit [address] [phone] MylesBindu, OD 909 [place], [place] 477385 Rubi Johnson, OT [address] [address] 04/06/2025 12:30 PM CDT Therapy Visit [address] [phone] Randy Maradiaga, DO 909 [place] [address] Delicia George, PT [address] [place] [address] 04/16/2025 11:00 AM CDT Therapy Visit [address] [phone] Myles Bidnu, OD 909 [place], [place] 115745 Rubi Johnson, OT [address] 767307 04/23/2025 12:45 PM CDT Therapy Visit [address] [phone] Myles Bindu, OD 909 [place], [place] 642345 Rubi Johnson, OT [facility] [address] [address] 04/23/2025 2:00 PM CDT Therapy Visit [address] [phone] Randy Maradiaga, DO [address] [place] [address] Delicia George, PT 150 [facility] [place] [address] 04/30/2025 10:15 AM CDT Therapy Visit [address] [phone] Randy Maradiaga, DO [address] [place] [address] Delicia George, PT [address] [place] [address] 05/04/2025 11:00 AM CDT Virtual Visit [address] [phone] Bindu Bueno, OD 909 [place] [address] Rubi Johnson, OT F[facility] [address] [address] 05/07/2025 10:15 AM CDT Therapy Visit [address] [place] [phone] Randy Maradiaga, DO 909 [place] [address] Delicia George, PT [address] [place] [address] 05/14/2025 10:15 AM CDT Therapy Visit [address] [phone] Randy Maradiaga, DO [address] [place] [address] Delicia George, PT [address] [place] [address] 05/14/2025 11:00 AM CDT Therapy Visit [address] [phone] Bindu Bueno, OD 909 [place] [address] Rubi Johnson, [address] [address] 06/01/2025 11:15 AM CDT Appointment [facility] Imaging [address] [place] [phone] Robin Zepeda MD [address] [place] [address] [id number] [place] [address] 06/02/2025 2:20 PM CDT Virtual Visit [facility] [place] [address] [phone] Robin Zepeda MD [address] [place] [address] [id number] [place], [place] 233605 07/01/2025 12:00 PM CDT Virtual Visit [facility] [address] [phone] Santa Menon, PA-C [address] [place] [address] 572805 08/03/2025 4:30 PM COOK RAILROAD Virtual Visit [facility] [address] [phone] Any Joiner MD 420 [facility] 276 [place], [place] [phone] documented as of this encounter Visit Diagnoses Not on filedocumented in this encounter Additional Health Concerns Infection Onset Date Last Indicated Resolved Time Rule Out COVID-19 09/13/2024 09/13/2024 09/13/2024 12:31 PM COOK RAILROAD Rule Out COVID-19 11/14/2024 11/14/2024 11/14/2024 8:25 PM COOK RAILROAD Assessment Noted Time PHQ-9 Depression Total Score: 5 03/17/20 24 9:45 AM CDT documented as of this encounter Care Teams Supervisor Ornamental Ironworking Relationship Specialty Start Date End Date Winston Villatoro, [facility] [place] [address] [place] [address] PCP - Ophthalmology Ophthalmology 02/11/13 Denise Woodson APRN WINDOW TINTER [address] [address] [place] [address] PCP - General Family Practice 09/21/20 Denise Woodson APRN WINDOW TINTER [address] [place] [address] Assigned PCP 07/17/20 Usha Simon APRN WINDOW TINTER [address] [address] Nurse Practitioner Neurological Surgery 01/24/24 Dangelo Salinas MD [address] [place] [address] Neurology 01/27/24 Anastasia Stearns, RN Lead Asphalt Plant Worker 02/06/24 12/17/24 Germaine Aleman, W Community Health Worker Primary Care - CC 02/18/2412/17/24 Lisa Zambrano MD [address] [place] 886365 Assigned Heart and Vascular Provider 05/08/24 07/07/24 Raul Hoyos MD [address] [address] Assigned Neuroscience Provider 05/08/24 07/07/24 Joya Lira RPH [address] [address] Pharmacist Pharmacist 05/25/24 Joya Lira RPH [address] [place] [address] Assigned MTM Pharmacist 06/08/24 Fabi Coates MD 420 [facility] 75 [place] [address] Genetics, Clinical 06/18/24 Robin Zepeda MD 9 [facility] [id number] [place], [place] 303205 Assigned Neuroscience Provider 07/08/24 08/07/24 Danna Cardenas PA-C [address] [place], [place] 857215 Assigned Heart and Vascular Provider 07/08/24 12/05/24 Felicita Desai RN Lead Asphalt Plant Worker 07/14/24 07/28/24 Arthur Salas [facility] [address] [place] [address] Assigned Behavioral Health Provider 08/08/24 Randy Maradiaga DO [address] [place] [address] 014825 Assigned Neuroscience Provider 08/08/24 Tete Wang MD [address] [place] [address] Genetics, Clinical 10/30/24 Dahlia Joyce MD [address] [place] [address] 184805 Radiology Neuroradiology 11/17/24 Lisa Zambrano MD 6405 [facility] [address] [place] [address] Assigned Heart and Vascular Provider 12/06/24 Tete Wang MD [address] [place] [address] 557934 Assigned Pediatric Specialist Provider 01/06/25 Any Joiner MD [address] [place] [address] 276 [place], [place] 105535 Assigned Pulmonology Provider 02/05/25 documented as of this encounter
--- OUTSIDE RECORDS SUMMARY | 2025-03-09 12:24 | XMS_ITS | Encounter Summary ---
Author Organization [place] Address [address] [place] [address] Care Team Providers Care Carpenter Cradle And Dolly Name Role Phone Winston Villatoro Se OD Unavailable [phone] Denise Woodson APRN SCRAP MATERIALS BUYER Unavailable [phone] Denise Woodson APRN SCRAP MATERIALS BUYER Primary Care Provider Usha Simon APRN SCRAP MATERIALS BUYER Unavailable + [phone] Dangelo Salinas MD Unavailable Anastasia Stearns RN Unavailable [phone] Germaine Aleman CHW Unavailable [phone] Lisa Zambrano MD Unavailable Raul Hoyos MD Unavailable Joya Lira [facility] Unavailable +[phone] Joya Lira [facility] Unavailable +[phone] Fabi Coates MD Unavailable [phone] Robin Zepeda MD Unavailable [phone] Danna Cardenas PA-C Unavailable [phone] Felicita Desai RN Unavailable Unavailab Arthur Rios VAULT CLERK Unavailable +[phone] Randy Maradiaga DO Unavailable + Tete Wang MD Unavailable Dahlia Joyce MD Unavailable [phone] Lisa Zambrano MD Unavailable +- [phone] Tete Wang MD Unavailable [phone] Any Joiner MD Unavailable [phone] Encounter Details Date Type Department Care Team (Late st Contact Info) Description 05/11/2024 MyC Medical Advice [facility] [address] [place] [address] Denise Woodson APRN [facility] [address] [place] [address] Social History Tobacco Use Types [...] How often do you attend evangelical or voodoo serv ices? Never 02/28/2024 Do [...] Score 2 05/05/2024 [facility] - Occupational Stress Questionnaire Answer [...] in an overnight assisted, or couch-surfing.) Yes 05/15/2024 Are you worried [...] on file Legal Sex Female 4:05 AM TOBACCO WETTER Gender Identity Not on file Sexual Orientation [...] Anastasia Stearns. * Telephone Encounter - Qing Valentine - 05/11/2024 3:02 PM CDT Routing to provider as VEDA. Qing Copeland Lead Labor Specialist [facility] documented in this encounter Plan of Treatment Upcoming Encounters Date Type Department Care Team (Late st Contact Info) Description 03/16/2025 8:00 AM CDT Virtual Visit M [address] [phone] Myles, Bindu, OD 909 [place] [address] Rubi Johnson, OT VALARIE BALBUENA [address] [address] 03/26/2025 12:45 PM CDT Therapy Visit M [address] [phone] Bindu Bueno, OD 909 [place] [address] Rubi Johnson, OT [facility] 150 [place] [address] 04/02/2025 9:30 AM CDT [facility] 150 [place] [phone] Randy Maradiaga, DO [address] [place] [address] 698575 Delicia George, PT 150 [facility] [place], [place] 347587 04/06/2025 11:00 AM CDT Virtual Visit [address] [phone] Bindu Bueno, OD 909 [place] [address] Rubi Johnson, OT [address] [address] 04/06/2025 12:30 PM CDT Therapy Visit [address] [phone] Randy Maradiaga, DO [address] [place] [address] 441395 Delicia George, PT [address] [place], [place] 589437 04/16/2025 11:00 AM CDT Therapy Visit [address] [phone] Bindu Bueno, OD 909 [place] [address] Rubi Johnson, OT [address] [address] 04/23/2025 12:45 PM CDT Therapy Visit [address] [phone] Bindu Bueno, OD 909 [place] [address] Rubi Johnson, OT [address] [address] 04/23/2025 2:00 PM CDT Therapy Visit [address] [phone] Randy Maradiaga, DO 909 [place], [place] 552145 Delicia George, PT 150 [place] [address] 04/30/2025 10:15 AM CDT Therapy Visit [address] [phone] Randy Maradiaga, DO [address] [place] [address] 580365 Delicia George, PT 150 [facility] [place] [place] [address] 05/04/2025 11:00 AM CDT Virtual Visit [address] [phone] Bindu Bueno, OD 909 [place] [address] Rubi Johnson, OT [address] [address] 05/07/2025 10:15 AM CDT Therapy Visit [address] [phone] Randy Maradiaga, DO [address] [place] [address] Delicia George, PT 150 [place] [address] 05/14/2025 10:15 AM CDT Therapy Visit [address] [phone] Randy Maradiaga, DO [address] [place] [address] 5976[address] Delicia George, PT 150 [place] [address] 05/14/2025 11:00 AM CDT Therapy Visit [address] [phone] Bindu Bueno, OD [address] [place], [place] [address] [place] [address] Rubi Johnson, OT [facility] 150 [place] [address] 06/01/2025 11:15 AM CDT Appointment [facility] Specialty Care Center Imaging [address] [place] [address] Robin Zepeda MD [address] [place] [address] 3[address]95 06/02/2025 2:20 PM CDT Virtual Visit [facility] [address] [phone] Robin Zepeda MD [address] [place] [address] 07/01/2025 12:00 PM CDT Virtual Visit [facility] [address] [phone] Santa Menon, PA-C [address] [place] [address] 782025 08/03/2025 4:30 PM TOBACCO WETTER Virtual Visit [facility] [address] [phone] Any Joiner MD [address] [place] [address] documented as of this encounter Visit Diagnoses Not on filedocumented in this encounter Additional Health Concerns Infection Onset Date Last Indicated Resolved Time Rule Out COVID-19 09/13/2024 09/13/2024 09/13/2024 12:31 PM TOBACCO WETTER Rule Out COVID-19 11/14/2024 11/14/2024 11/14/2024 8:25 PM TOBACCO WETTER Assessment Noted Time PHQ-9 Depression Total Score: 5 03/17/20 24 9:45 AM CDT documented as of this encounter Care Teams Carpenter Cradle And Dolly Relationship Specialty Start Date End Date Winston VillatoroAMELIE [facility] [place] [address] [place] [address] PCP - Ophthalmology Ophthalmology 02/11/13 Denise Woodson APRN SCRAP MATERIALS BUYER [address] [place] [address] PCP - General Family Practice 09/21/20 Denise Woodson APRN SCRAP MATERIALS BUYER [address] [place] [address] Assigned PCP 07/17/20 Usha Simon APRN SCRAP MATERIALS BUYER 909 [facility]2121[place], [place] 414[address] Nurse Practitioner Neurological Surgery 01/24/24 Dangelo Salinas MD [address] [facility] 200 [place], [place] [id number] Neurology 01/27/24 Anastasia Stearns, RN Lead Cath Lab Radiology Technician 02/06/24 12/17/24 Germaine Aleman, CHW Community Health Worker Primary Care - CC 02/18/2412/17/24 Lisa Zambrano MD 6406 [facility] [address] [place] [address] Assigned Heart and Vascular Provider 05/08/24 07/07/24 Raul Hoyos MD 909 [facility]2121[address] [place] [address] Assigned Neuroscience Provider 05/08/24 07/07/24 Joya Lira [facility] [address] [place] [address] Pharmacist Pharmacist 05/25/24 Joya Lira [facility] [address] [place] [address] Assigned MTM Pharmacist 06/08/24 Fabi Coates MD [address] [place] [address] 75 [place] [address] Genetics, Clinical 06/18/24 Robin Zepeda MD [address] [place] [id number] [place] [address] Assigned Neuroscience Provider 07/08/24 08/07/24 Danna Cardenas PA-C 6405 [place] [address] Assigned Heart and Vascular Provider 07/08/24 12/05/24 Felicita Desai, RN Lead Cath Lab Radiology Technician 07/14/24 07/28/24 Arthur Salas, [facility] [address] [place] [address] Assigned Behavioral Health Provider 08/08/24 Randy Maradiaga DO [address] [place] [address] 794515 Assigned Neuroscience Provider 08/08/24 Tete Wang MD [address] [place] [address] 728184 Genetics, Clinical 10/30/24 Dahlia Joyce MD [address] [place] [address] 448655 Radiology Neuroradiology 11/17/24 Lisa Zambrano MD 6405 [facility] [address] [place], [place] 320735 Assigned Heart and Vascular Provider 12/06/24 Tete Wang MD [address] [place] [address] 079324 Assigned Pediatric Specialist Provider 01/06/25 Any Joiner MD [address] [place] [address] 276 [place], [place] 0[address]395 Assigned Pulmonology Provider 02/05/25 documented as of this encounter
--- OUTSIDE RECORDS SUMMARY | 2025-03-09 12:24 | XMS_ITS | Encounter Summary ---
Author Organization [facility] Address [address] [place] [address] Care Team Providers Care Youth Teacher Name Role Phone Winston Villatoro Se OD Unavailable +[phone] Denise Woodson APRN LATH TIER Unavailable [phone] Denise Woodson APRN LATH TIER Primary Care Provider Usha Simon APRN LATH TIER Unavailable + [phone] Dangelo Salinas MD Unavailable Anastasia Stearns RN Unavailable +[phone] Germaine Aleman CHW Unavailable [phone] Lisa Zambrano MD Unavailable Raul Hoyos MD Unavailable Joya Lira [facility] Unavailable +[phone] Joya Lira [facility] Unavailable +[phone] Fabi Coates MD Unavailable [phone] Robin Zepeda MD Unavailable [phone] Danna Cardenas PA-C Unavailable +[phone] Felicita Desai RN Unavailable Unavailab Arthur Rios STEAM BOX OPERATOR Unavailable +[phone] Randy Maradiaga DO Unavailable + Tete Wang MD Unavailable [phone] Dahlia Joyce MD Unavailable +[phone] Lisa Zambrano MD Unavailable +- [phone] Tete Wang MD Unavailable +[phone] Any Joiner MD Unavailable +[phone] Encounter Details Date Type Department Care Team (Late st Contact Info) Description 05/13/2024 MyC Medical Advice [facility] Care Coordination [facility] [address] [place] [address] Anastasia Stearns, RN Social History Tobacco Use [...] Answer Date Recorded PHQ-2 Score 2 05/05/2024 [facility] - [...] on file Legal Sex Female 4:05 AM LOT ASSOCIATE Gender Identity Not on file Sexual Orientation Not on file 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 Not on file Not on file Not on file Not on file Not on file Not on file documented as of this encounter Plan of Treatment Upcoming Encounters Date Type Department Care Team (Late st Contact Info) Description 03/16/2025 8:00 AM CDT Virtual Visit [address] [phone] BuenoBindu, OD [address] [place], [place] 7[address] Rubi Johnson, OT [address] [address] 03/26/2025 12:45 PM CDT Therapy Visit [address] [phone] Bindu Bueno, OD [address] [place], [place] [address] Rubi Johnson, OT [address] 805[address] 04/02/2025 9:30 AM CDT Therapy Visit [address] [phone] Randy Maradiaga, DO [address] [place], [place] 6[address] Delicia George, PT 150 [place] [address] 04/06/2025 11:00 AM CDT [facility] [address] [place] [phone] Bindu Bueno, OD [address] [place], [place] 937665 Rubi Johnson, OT [facility] [address] [place], [place] 255127 04/06/2025 12:30 PM CDT Therapy Visit [address] [phone] Randy Maradiaga, DO [address] [place] [address] Delicia George, PT 150 [facility] [place], [place] 083267 04/16/2025 11:00 AM CDT [facility] 150 [place] [phone] Bindu Bueno, OD [address] [place] [address] Rubi Johnson, OT [facility] [address] [place] [address] 04/23/2025 12:45 PM CDT [facility] 150 [place] [phone] Bindu Bueno, OD [address] [place] [address] Rubi Johnson, OT [facility] [address] 04/23/2025 2:00 PM CDT Therapy Visit [address] [phone] Randy Maradiaga, DO [address] [place] [address] Delicia George, PT 150 [facility] [address] 04/30/2025 10:15 AM CDT Therapy Visit [address] [phone] Randy Maradiaga, DO [address] [place] [address] Delicia George, PT 150 [facility] [place] [address] 05/04/2025 11:00 AM CDT Virtual Visit [address] [phone] Bindu Bueno, OD [address] [place] [address] Rubi Johnson, OT [address] [address] 05/07/2025 10:15 AM CDT Therapy Visit [address] [phone] Randy Maradiaga, DO [address] [place] [address] Delicia George, PT [address] [place] [address] 05/14/2025 10:15 AM CDT Therapy Visit [address] [phone] Randy Maradiaga, DO [address] [place] [address] Delicia George, PT [address] [place] [address] 05/14/2025 11:00 AM CDT Therapy Visit [address] [phone] Bindu Bueno, OD 9 [place], [place] 094[address] Rubi Johnson, [address] [address] 06/01/2025 11:15 AM CDT Appointment [facility] [address] [place] [phone] Robin Zepeda MD [address] [place] [address] 06/02/2025 2:20 PM CDT Virtual Visit [facility] Neuro[facility] Clinic [address] 3rd [place] [phone] Robin Zepeda MD [address] [place] [address] [place] [address] 07/01/2025 12:00 PM CDT Virtual Visit [facility] Rehabilitation [facility] [address] 3rd [place] [phone] Santa Menon, PANilesC [address] [place] [address] 985025 08/03/2025 4:30 PM LOT ASSOCIATE Virtual Visit [facility] [address] [phone] Any Joiner MD [address] [place] [address] 276 [place], [place] 757955 documented as of this encounter Visit Diagnoses Not on filedocumented in this encounter Additional Health Concerns Infection Onset Date Last Indicated Resolved Time Rule Out COVID-19 09/13/2024 09/13/2024 09/13/2024 12:31 PM LOT ASSOCIATE Rule Out COVID-19 11/14/2024 11/14/2024 11/14/2024 8:25 PM LOT ASSOCIATE Assessment Noted Time PHQ-9 Depression Total Score: 5 03/17/20 24 9:45 AM CDT documented as of this encounter Care Teams Youth Teacher Relationship Specialty Start Date End Date Winston Villatoro OD [facility] [place] [address] [place] [address] PCP - Ophthalmology Ophthalmology 02/11/13 Denise Woodson APRN LATH TIER [address] [address] [address] PCP - General Family Practice 09/21/20 Denise Woodson APRN LATH TIER [address] [address] [address] Assigned PCP 07/17/20 Usha Simon APRN LATH TIER [address] [address] Nurse Practitioner Neurological Surgery 01/24/24 Dangelo Salinas MD [address] [place] [address] Neurology 01/27/24 Anastasia Stearns, RN Lead Information Technology Account Manager 02/06/24 12/17/24 Germaine Aleman, W Community Health Worker Primary Care - CC 02/18/2412/17/24 Lisa Zambrano MD [address] [facility] [place] [address] Assigned Heart and Vascular Provider 05/08/24 07/07/24 Raul Hoyos MD [address] [place] [address] Assigned Neuroscience Provider 05/08/24 07/07/24 Joya Lira RPH [address] [place] [address] Pharmacist Pharmacist 05/25/24 Joya Lira RPH [address] [place] [address] Assigned MTM Pharmacist 06/08/24 Fabi Coates MD [address] [place] [address] 75 [place] [address] Genetics, Clinical 06/18/24 Robin Zepeda MD 909 [facility] [id number] [place] [address] Assigned Neuroscience Provider 07/08/24 08/07/24 Danna Cardenas PA-C [facility]5 [place] [address] Assigned Heart and Vascular Provider 07/08/24 12/05/24 Felicita Desai, RN Lead Information Technology Account Manager 07/14/24 07/28/24 Arthur Salas [facility] [address] [place] [address] Assigned Behavioral Health Provider 08/08/24 Randy Maradiaga DO [address] [place] [address] 016525 Assigned Neuroscience Provider 08/08/24 Tete Wang MD [address] [place], [place] 314274 Genetics, Clinical 10/30/24 Dahlia Joyce MD [address] [place] [address] 172725 Radiology Neuroradiology 11/17/24 Lisa Zambrano MD [address] [facility] [address] [place] [address] Assigned Heart and Vascular Provider 12/06/24 Tete Wang MD 2450 [place] [address] Assigned Pediatric Specialist Provider 01/06/25 Any Joiner MD 420 [facility] 276 [place] [address] Assigned Pulmonology Provider 02/05/25 documented as of this encounter
--- OUTSIDE RECORDS SUMMARY | 2025-03-09 12:24 | XMS_ITS | Encounter Summary ---
Author Organization [facility] Address [address] [place] [address] Care Team Providers Care Assistant Distribution Manager Name Role Phone Winston Villatoro Se OD Unavailable [phone] Denise Woodson APRN PROSTHETICS ASSISTANT Unavailable +[phone] Denise Woodson APRN PROSTHETICS ASSISTANT Primary Care Provider Usha Simon APRN PROSTHETICS ASSISTANT Unavailable + [phone] Dangelo Salinas MD Unavailable Anastasia Stearns RN Unavailable Germaine Aleman CHW Unavailable +[phone] Lisa Zambrano MD Unavailable Raul Hoyos MD Unavailable Joya Lira [facility] Unavailable [phone] Joya Lira [facility] Unavailable [phone] Fabi Coates MD Unavailable [phone] Robin Zepeda MD Unavailable [phone] Danna Cardenas PA-C Unavailable +[phone] Felicita Desai RN Unavailable Unavailab Arthur Rios STRAP FOLDING MACHINE OPERATOR Unavailable +[phone] Randy Maradiaga DO Unavailable + Tete Wang MD Unavailable Dahlia Joyce MD Unavailable [phone] Lisa Zambrano MD Unavailable + [phone] Tete Wang MD Unavailable [phone] Any Joiner MD Unavailable +[phone] Encounter Details Date Type Department Care Team (Late st Contact Info) Description 05/24/2024 MyC Medical Advice Se Physicians [facility] Epilepsy Care [address], [address] [place] [address] Rohit Barcenas MD 420 [facility] 295 [place] [address] Social History Tobacco Use Types [...] How often do you attend jewish or rastafari serv ices? Never 02/28/2024 Do [...] PHQ-2 Score 2 05/05/2024 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 Not on file Not on file Not on file Not on file Not on file Not on file documented as of this encounter Plan of Treatment Upcoming Encounters Date Type Department Care Team (Late st Contact Info) Description 03/16/2025 8:00 AM CDT Virtual Visit [address] [phone] Bindu Bueno, OD [address] [place], [place] [address] Rubi Johnson, OT [address] 343947 03/26/2025 12:45 PM CDT Therapy Visit [address] [phone] BuenoBindu flores, OD [address] [place], [place] 0[address] Rubi Johnson, OT [address] 120[address] 04/02/2025 9:30 AM CDT Therapy Visit [address] [phone] Randy Maradiaga, DO 909 [place], [place] [address] Delicia George, PT 150 [place], [place] 7[address] 04/06/2025 11:00 AM CDT Virtual Visit [address] [phone] MylesBindu, OD 909 [place], [place] [address] Rubi Johnson, OT [address] [address] 04/06/2025 12:30 PM CDT Therapy Visit [address] [phone] Randy Maradiaga, DO 909 [place] [address] Delicia George, PT 150 [place] [address] 04/16/2025 11:00 AM CDT Therapy Visit [address] [phone] Myles Bindu, OD 909 [place], [place] 24[address] Rubi Johnson, OT [address] 977257 04/23/2025 12:45 PM CDT Therapy Visit [address] [phone] Myles Bindu, OD 909 [place], [place] 0835[address] Rubi Johnson, OT [facility] [address] [address] 04/23/2025 2:00 PM CDT Therapy Visit [address] [phone] Randy Maradiaga, DO [address] [place] [address] Delicia George, PT 150 [facility] [place] [address] 04/30/2025 10:15 AM CDT Therapy Visit [address] [phone] Randy Maradiaga, DO [address] [place] [address] Delicia George, PT 150 [facility] [place] [address] 05/04/2025 11:00 AM CDT Virtual Visit [address] [phone] Bindu Bueno, OD 909 [place] [address] Rubi Johnson, OT F[facility] [address] [address] 05/07/2025 10:15 AM CDT Therapy Visit [address] [place] [address] Randy Maradiaga, DO [address]09 [place] [address] Delicia George, PT 150 [place] [address] 05/14/2025 10:15 AM CDT Therapy Visit [address] [phone] Randy Maradiaga, DO [address] [place] [address] Delicia George, PT 150 [place] [address] 05/14/2025 11:00 AM CDT Therapy Visit [address] [phone] Bindu Bueno, OD [address]09 [place] [address] Rubi Johnson, [address] [address] 06/01/2025 11:[address] [facility] Imaging [address] [place] [phone] Robin Zepeda MD [address] [place] [address] [id number] [place] [address] 06/02/2025 2:20 PM CDT Virtual Visit [facility] Neurosurgery Clinic [place] [address] [phone] Robin Zepeda MD [address] [place] [address] [id number] [place], [place] 215[address] 07/01/2025 12:00 PM CDT Virtual Visit [facility] Clinic [address] [phone] Santa Men[place], PA-C [address] [place] [address] 632715 08/03/2025 4:30 PM ASSISTANT AUDITOR Virtual Visit [facility] Health Clinic [address] [phone] Any Joiner MD 420 [facility] 276 [place], [place] [address] documented as of this encounter Visit Diagnoses Not on filedocumented in this encounter Additional Health Concerns Infection Onset Date Last Indicated Resolved Time Rule Out COVID-19 09/13/2024 09/13/2024 09/13/2024 12:31 PM ASSISTANT AUDITOR Rule Out COVID-19 11/14/2024 11/14/2024 11/14/2024 8:25 PM ASSISTANT AUDITOR Assessment Noted Time PHQ-9 Depression Total Score: 5 03/17/20 24 9:45 AM CDT documented as of this encounter Care Teams Assistant Distribution Manager Relationship Specialty Start Date End Date Winston Villatoro, [facility] [place] [address] [place] [address] PCP - Ophthalmology Ophthalmology 02/11/13 Denise Woodson APRN PROSTHETICS ASSISTANT [address] [address] [address] PCP - General Family Practice 09/21/20 Denise Woodson APRN PROSTHETICS ASSISTANT [address] [place] [address] Assigned PCP 07/17/20 Usha Simon APRN PROSTHETICS ASSISTANT [address] [address] Nurse Practitioner Neurological Surgery 01/24/24 Dangelo Salinas MD [address] [place] [address] Neurology 01/27/24 Anastasia Stearns, RN Lead Laborer Airport Maintenance 02/06/24 12/17/24 Germaine Aleman, W Community Health Worker Primary Care - CC 02/18/2412/17/24 Lisa Zambrano MD [address] [facility] [address] [place] 854355 Assigned Heart and Vascular Provider 05/08/24 07/07/24 Raul Hoyos MD [address] [address] Assigned Neuroscience Provider 05/08/24 07/07/24 Joya Lira RPH [address] [place] [address] Pharmacist Pharmacist 05/25/24 Joya Lira RPH [address] [place] [address] Assigned MTM Pharmacist 06/08/24 Fabi Coates MD 420 [facility] 75 [place] [address] Genetics, Clinical 06/18/24 Robin Zepeda MD [address] [facility] [id number] [place], [place] 9[address]85 Assigned Neuroscience Provider 07/08/24 08/07/24 Danna Cardenas PA-C 6405 [place], [place] 469345 Assigned Heart and Vascular Provider 07/08/24 12/05/24 Felicita Desai RN Lead Laborer Airport Maintenance 07/14/24 07/28/24 Arthur Salas [facility] [address] [place] [address] Assigned Behavioral Health Provider 08/08/24 Randy Maradiaga DO [address] [place] [address] 619365 Assigned Neuroscience Provider 08/08/24 Tete Wang MD [address] [place] [address] Genetics, Clinical 10/30/24 Dahlia Joyce MD [address] [place] [address] 052695 Radiology Neuroradiology 11/17/24 Lisa Zambrano MD 6[address] [facility] [address] [place] [address] Assigned Heart and Vascular Provider 12/06/24 Tete Wang MD [address] [place] [address] 053264 Assigned Pediatric Specialist Provider 01/06/25 Any Joiner MD [address] [place] [address] 276 [place], [place] 047375 Assigned Pulmonology Provider 02/05/25 documented as of this encounter
--- OUTSIDE RECORDS SUMMARY | 2025-03-09 12:24 | XMS_ITS | Encounter Summary ---
Author Organization [place] Address [address] [place] [address] Care Team Providers Care Forensic Materials Engineer Name Role Phone Winston Villatoro Se OD Unavailable +[phone] Denise Woodson APRN SIZE MARKER Unavailable +[phone] Denise Woodson APRN SIZE MARKER Primary Care Provider Usha Simon APRN SIZE MARKER Unavailable + [phone] Dangelo Salinas MD Unavailable Anastasia Stearns RN Unavailable Germaine Aleman CHW Unavailable +[phone] Lisa Zambrano MD Unavailable Raul Hoyos MD Unavailable [phone] Joya Lira [facility] Unavailable [phone] Joya Lira [facility] Unavailable +[phone] Fabi Coates MD Unavailable [phone] Robin Zepeda MD Unavailable +[phone] Danna Cardenas PA-C Unavailable +[phone] Felicita Desai RN Unavailable Unavailab Arthur Rios SENIOR SERVICE TECHNICIAN Unavailable +[phone] Randy Maradiaga DO Unavailable + Tete Wang MD Unavailable [phone] Dahlia Joyce MD Unavailable +[phone] Lisa Zambrano MD Unavailable + [phone] Tete Wang MD Unavailable [phone] Any Joiner MD Unavailable +[phone] Encounter Details Date Type Department Care Team (Late st Contact Info) Description 05/25/2024 MyC Medical Advice [facility] [address] 3rd [place] [address] Raul Hoyos MD [address] [place] [address] [id number] [place] [address] Social History Tobacco Use Types [...] How often do you attend anabaptism or episcopal serv ices? 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 Gender Identity Not on file Sexual [...] Description 03/16/2025 8:00 AM CDT Virtual Visit [facility] 150 [place] [phone] MylesBindu, OD 909 [place], [place] 179565 Rubi Johnson, OT [address] 969857 03/26/2025 12:45 PM CDT Therapy Visit [address] [phone] Bindu Bueno, OD 909 [place], [place] 9633[address] Rubi Johnson, OT [address] 434[address] 04/02/2025 9:30 AM CDT Therapy Visit [address] [phone] Randy Maradiaga, DO 909 [place], [place] 640305 Delicia George, PT 150 [place], [place] 50304068 04/06/2025 11:00 AM CDT Virtual Visit [facility] 150 [place] [address]-5714 BuenoBindu, OD 909 [place], [place] 677965 Rubi Johnson, OT [address] [address] 04/06/2025 12:30 PM CDT Therapy Visit [address] [phone] Randy Maradiaga, DO [address] [place] [address] 425445 Delicia George, PT 150 [place] [address] 04/16/2025 11:00 AM CDT Therapy Visit [address] [phone] Myles Bindu, OD 909 [place], [place] 890355 Rubi Johnson, OT [address] [address] 04/23/2025 12:45 PM CDT Therapy Visit [address] [phone] MylesBindu, OD 909 [place] [address] Rubi Johnson, OT [address] [address] 04/23/2025 2:00 PM CDT Therapy Visit [address] [phone] Randy Maradiaga, DO [address] [place] [address] Delicia George, PT 150 [place] [address] 04/30/2025 10:15 AM CDT Therapy Visit [address] [phone] Randy Maradiaga, DO [address] [place] [address] Delicia George, PT 150 [place] [address] 05/04/2025 11:00 AM CDT Virtual Visit [address] [phone] Bindu Bueno, OD 909 [place] [address] Rubi Johnson, OT [address] [address] 05/07/2025 10:15 AM CDT Therapy Visit [facility] 150 [place] [address]-684014 Randy Maradiaga, DO [address] [place] [address] Delicia George, PT 150 [facility] [address] 05/14/2025 10:15 AM CDT Therapy Visit [address] [phone] Randy Maradiaga, DO [address] [place] [address] Delicia George, PT 150 [facility] [place] [address] 05/14/2025 11:00 AM CDT Therapy Visit [address] [phone] Bindu Bueno, OD 909 [place] [address] Rubi Johnson, [address] [address] 06/01/2025 11:15 AM CDT Appointment [facility] Imaging [address] [place] [phone] Robin Zepeda MD [address] [place] [address] [id number] [place] [address] 06/02/2025 2:20 PM CDT Virtual Visit [facility] [address] [phone] Robin Zepeda MD [address] [place] [address] [id number] [place], [place] 339785 07/01/2025 12:00 PM CDT Virtual Visit M [facility] [address] [phone] [place], PANilesC [address] [place] [address] 651165 08/03/2025 4:30 PM PATHOLOGY LABORATORY AIDES TEACHER Virtual Visit M [facility] [address] [phone] Any Joiner MD [address] [place] [address] 276 [place], [place] [phone] documented as of this encounter Visit Diagnoses Not on filedocumented in this encounter Additional Health Concerns Infection Onset Date Last Indicated Resolved Time Rule Out COVID-19 09/13/2024 09/13/2024 09/13/2024 12:31 PM PATHOLOGY LABORATORY AIDES TEACHER Rule Out COVID-19 11/14/2024 11/14/2024 11/14/2024 8:25 PM PATHOLOGY LABORATORY AIDES TEACHER Assessment Noted Time PHQ-9 Depression Total Score: 5 03/17/20 24 9:45 AM CDT documented as of this encounter Care Teams Forensic Materials Engineer Relationship Specialty Start Date End Date Winston Villatoro OD [facility] [place] [address] [place] [address] PCP - Ophthalmology Ophthalmology 02/11/13 Denise Woodson APRN SIZE MARKER [address] [address] [address] PCP - General Family Practice 09/21/20 Denise Woodson APRN SIZE MARKER [address] [place] [address] Assigned PCP 07/17/20 Usha Simon APRN SIZE MARKER [address] [place] [address] Nurse Practitioner Neurological Surgery 01/24/24 Dangelo Salinas MD [address] [place] [address] Neurology 01/27/24 Anastasia Stearns, RN Lead Casting Wheel Operator 02/06/24 12/17/24 Germaine Aleman, W Community Health Worker Primary Care - CC 02/18/2412/17/24 Lisa Zambrano MD 6405 [facility] [address] [place] 12[address]65 Assigned Heart and Vascular Provider 05/08/24 07/07/24 Raul Hoyos MD [address] [place] [address] Assigned Neuroscience Provider 05/08/24 07/07/24 Joya Lira RPH [address] [address] Pharmacist Pharmacist 05/25/24 Joya Lira RPH [address] [place] [address] Assigned MTM Pharmacist 06/08/24 Fabi Coates MD 420 [facility] 75 [place], [place] 331065 Genetics, Clinical 06/18/24 Robin Zepeda MD [address] [place] [address] [id number] [place], [place] 079295 Assigned Neuroscience Provider 07/08/24 08/07/24 Danna Cardenas PA-C 6405 [place], [place] 646405 Assigned Heart and Vascular Provider 07/08/24 12/05/24 Felicita Desai RN Lead Casting Wheel Operator 07/14/24 07/28/24 Arthur Salas, [facility] [address] [place] [address] Assigned Behavioral Health Provider 08/08/24 Randy Maradiaga DO [address] [place] [address] Assigned Neuroscience Provider 08/08/24 Tete Wang MD [address] [place] [address] 684014 Genetics, Clinical 10/30/24 Dahlia Joyce MD [address] [place] [address] 059955 Radiology Neuroradiology 11/17/24 Lisa Zambrano MD 6405 [facility] [address] [place] [address] Assigned Heart and Vascular Provider 12/06/24 Tete Wang MD [address] [place] [address] [place] [address] Assigned Pediatric Specialist Provider 01/06/25 Any Joiner MD [address] [place] [address] 276 [place], [place] 508595 Assigned Pulmonology Provider 02/05/25 documented as of this encounter
--- OUTSIDE RECORDS SUMMARY | 2025-03-09 12:24 | XMS_ITS | Encounter Summary ---
Author Organization [place] Address [address] [place] [address] Care Team Providers Care Knockdown Man Name Role Phone Winston Villatoro Se OD Unavailable [phone] Denise Woodson APRN UNISHEAR OPERATOR Unavailable +[phone] Denise Woodson APRN UNISHEAR OPERATOR Primary Care Provider Usha Simon APRN UNISHEAR OPERATOR Unavailable + [phone] Dangelo Salinas MD Unavailable Anastasia Stearns RN Unavailable Germaine Aleman CHW Unavailable [phone] Lisa Zambrano MD Unavailable Raul Hoyos MD Unavailable Joya Lira [facility] Unavailable [phone] Joya Lira [facility] Unavailable +[phone] Fabi Coates MD Unavailable [phone] Robin Zepeda MD Unavailable [phone] Danna Cardenas PA-C Unavailable +[phone] Felicita Desai RN Unavailable Unavailab Arthur Rios [facility] Unavailable +[phone] Randy Maradiaga DO Unavailable + Tete Wang MD Unavailable Dahlia Joyce MD Unavailable [phone] Lisa Zambrano MD Unavailable +[phone] Tete Wang MD Unavailable [phone] Any Joiner MD Unavailable [phone] Encounter Details Date Type Department Care Team [...] How often do you attend rastafarian or rastafari serv ices? Never 02/28/2024 Do [...] Date Recorded PHQ-2 Score 2 05/05/2024 [facility] [place] of Occupat ional Health - Occupational Stress [...] on file Legal Sex Female 4:05 AM MANUFACTURING AUTOMATION ENGINEER Gender Identity Not on file Sexual [...] Description 03/16/2025 8:00 AM CDT Virtual [facility] 150 [place] [phone] Bindu Bueno, OD 909 [place] [address] Rubi Johnson, OT [address] 477947 03/26/2025 12:45 PM CDT [facility] [phone] Bindu Bueno, OD 909 [place] [address] Rubi Johnson, OT [address] 115537 04/02/2025 9:30 AM CDT [facility] [address] [phone] Randy Maradiaga, DO 909 [place] [address] Delicia George, PT 150 [facility] [place] [place] 081267 04/06/2025 11:00 AM CDT Virtual Visit [address] [phone] Bindu Bueno, OD 909 [place] [address] Rubi Johnson, OT [address] [address] 04/06/2025 12:30 PM CDT Therapy Visit [address] [phone] Randy Maradiaga, DO 909 [place] [address] Delicia George, PT 150 [place] [address] 04/16/2025 11:00 AM CDT Therapy Visit [address] 52425-158114 Bindu Bueno, OD 909 [place] [address] Rubi Johnson, OT [address] [address] 04/23/2025 12:45 PM CDT Therapy Visit [address] [phone] Bindu Bueno, OD 909 [place] [address] Rubi Johnson, OT [address] [address] 04/23/2025 2:00 PM CDT Therapy Visit [address] [phone] Randy Maradiaga, DO [address] [place] [address] Delicia George, PT 150 [place] [address] 04/30/2025 10:15 AM CDT Therapy Visit [address] [phone] Randy Maradiaga, DO [address] [place] [address] Delicia George, PT 150 [place] [address] 05/04/2025 11:00 AM CDT Virtual Visit [address] [phone] Myles Bindu, OD 909 [place] [address] Rubi Johnson, OT [address] [address] 05/07/2025 10:15 AM CDT Therapy Visit [address] [phone] Randy Maradiaga, DO [address] [place] [address] 765925 Delicia George, PT 150 [place] [address] 05/14/2025 10:15 AM CDT Therapy Visit [address] [phone] Randy Maradiaga DO [address] [place] [address] 907175 Delicia George, PT 150 [place] [address] 05/14/2025 11:00 AM CDT Therapy Visit [address] [phone] Bindu Bueno, OD [address] [place] [address] Rubi Johnson, [address] [address] 06/01/2025 11:15 AM CDT Appointment [facility] [address] [place] [address] [place] [phone] Robin Zepeda MD [address] [place] [address] 06/02/2025 2:20 PM CDT Virtual Visit [facility] [address] 3rd [place] [address] Robin Zepeda MD [address] [place] [address] 929735 07/01/2025 12:00 PM CDT Virtual Visit M [facility] [place] 909 [facility] 3rd [place] [phone] [place], PANilesC [address] [place] [address] 08/03/2025 4:30 PM MANUFACTURING AUTOMATION ENGINEER Virtual Visit [facility] [address] [phone] Any Joiner MD 420 [facility] 276 [place], [place] 58[address] documented as of this encounter Visit Diagnoses Not on filedocumented in this encounter Additional Health Concerns Infection Onset Date Last Indicated Resolved Time Rule Out COVID-19 09/13/2024 09/13/2024 09/13/2024 12:31 PM MANUFACTURING AUTOMATION ENGINEER Rule Out COVID-19 11/14/2024 11/14/2024 11/14/2024 8:25 PM MANUFACTURING AUTOMATION ENGINEER Assessment Noted Time PHQ-9 Depression Total Score: 5 03/17/20 24 9:45 AM CDT documented as of this encounter Care Teams Knockdown Man Relationship Specialty Start Date End Date Winston Villatoro, AMELIE [facility] [address] [facility] [address] [place] [address] PCP - Ophthalmology Ophthalmology 02/11/13 Denise Woodson APRN UNISHEAR OPERATOR [address] [address] [address] PCP - General Family Practice 09/21/20 Denise Woodson APRN UNISHEAR OPERATOR [address] [address] [address] Assigned PCP 07/17/20 Usha Simon APRN UNISHEAR OPERATOR 909 [id number] [place] [address] Nurse Practitioner Neurological Surgery 01/24/24 Dangelo Salinas MD [address] [place] [address] Neurology 01/27/24 Anastasia Stearns, RN Lead Soda Drier Feeder 02/06/24 12/17/24 Germaine Aleman, W Community Health Worker Primary Care - CC 02/18/2412/17/24 Lisa Zambrano MD [address] [place] [address] Assigned Heart and Vascular Provider 05/08/24 07/07/24 Raul Hoyos MD 909 [id number] [place] [address] Assigned Neuroscience Provider 05/08/24 07/07/24 Joya Lira RPH [address] [place] [address] Pharmacist Pharmacist 05/25/24 Joya Lira Joleen [address] [place] [address] Assigned MTM Pharmacist 06/08/24 Fabi Coates MD [address] [facility] 75 [place] [address] Genetics, Clinical 06/18/24 Robin Zepeda MD 9 [facility] [id number] [place] [address] Assigned Neuroscience Provider 07/08/24 08/07/24 Danna Cardenas PA-C 6405 [place] [address] Assigned Heart and Vascular Provider 07/08/24 12/05/24 Felicita Desai, GEMA Lead Soda Drier Feeder 07/14/24 07/28/24 Arthur Salas [facility] [address] [address] Assigned Behavioral Health Provider 08/08/24 Randy Maradiaga DO [address] [place] [address] Assigned Neuroscience Provider 08/08/24 Tete Wang MD [address] [place] [address] Genetics, Clinical 10/30/24 Dahlia Joyce MD [address] [place] [address] Radiology Neuroradiology 11/17/24 Lisa Zambrano MD [address] [address] Assigned Heart and Vascular Provider 12/06/24 Tete Wang MD [address] [place] [address] Assigned Pediatric Specialist Provider 01/06/25 Any Joiner MD [address] [place] [address] Assigned Pulmonology Provider 02/05/25 documented as of this encounter
--- OUTSIDE RECORDS SUMMARY | 2025-03-09 12:24 | XMS_ITS | Encounter Summary ---
Author Organization [place] Address [address] [place] [address] Care Team Providers Care Bus Starter Name Role Phone Winston Villatoro OD Unavailable +[phone] Denise Woodson APRN BLANKET BINDER Unavailable [phone] Denise Woodson APRN BLANKET BINDER Primary Care Provider Usha Simon APRN BLANKET BINDER Unavailable + [phone] Dangelo Salinas MD Unavailable Anastasia Stearns RN Unavailable Germaine Aleman CHW Unavailable +[phone] Joya Lira RP Unavailable [phone] Joya Lira RP Unavailable +[phone] Fabi Coates MD Unavailable [phone] Danna CardenasC Unavailable +[phone] SinanselmoledyArthur HUMAN SERVICES SUPERVISOR Unavailable +[phone] Randy Maradiaga DO Unavailable + Tete Wang MD Unavailable +[phone] Dahlia Joyce MD Unavailable [phone] Lisa Zambrano MD Unavailable + [phone] Tete Wang MD Unavailable +[phone] Any Joiner MD Unavailable Encounter Details Date Type Department Care Team (Late st Contact Info) Description 09/04/2024 MyC Medical Advice [facility] [address] [place] [address] Qing Valentine Social History Tobacco [...] How often do you attend anglican or sikh serv ices? 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 PROFESSOR OF PHYSICS Gender Identity Not on file Sexual Orientation [...] Description 03/16/2025 8:00 AM CDT Virtual Visit [facility] 150 [place] [phone] Bindu Bueno, OD 909 [place], [place] 297285 Rubi Johnson, OT [address] [address] 03/26/2025 12:45 PM CDT Therapy Visit [address] [phone] Bindu Bueno, OD [address] [place] [address] 097345 Rubi Johnson, OT [address] [address] 04/02/2025 9:30 AM CDT Therapy Visit [address] [phone] Randy Maradiaga, DO 909 [place], [place] 026815 Delicia George, PT 150 [facility] [place] [address] 04/06/2025 11:00 AM CDT Virtual Visit [address] [phone] Bindu Bueno, OD 909 [place], [place] 813595 Rubi Johnson, OT [place] [address] [place] [address] 04/06/2025 12:30 PM CDT Therapy Visit [facility] [address] [facility] [place] [phone] Randy Maradiaga, DO 909 [place] [address] Delicia George, PT 150 [facility] [place] [address] 04/16/2025 11:00 AM CDT Therapy Visit [address] [phone] Bindu Bueno, OD [address] [place] [address] Rubi Johnson, OT [address] [address] 04/23/2025 12:45 PM CDT [facility] [phone] Bindu Bueno, OD 909 [place] [address] Rubi Johnson, OT [facility] [address] [place] [address] 04/23/2025 2:00 PM CDT Therapy [facility] [phone] Randy Maradiaga, DO 909 [place] [address] Delicia George, PT 150 [facility] [place] [address] 04/30/2025 10:15 AM CDT Therapy Visit [address] [phone] Randy Maradiaga, DO [address] [place] [address] 862185 Delicia George, PT 150 [place] [address] 05/04/2025 11:00 AM CDT Virtual Visit [address] [phone] Bindu Bueno, OD 909 [place], [place] 218335 Rubi Johnson, [address] [address] 05/07/2025 10:15 AM CDT Therapy Visit [address] [phone] Randy Maradiaga, DO [address] [place] [address] 477465 Delicia George, PT 150 [place] [address] 05/14/2025 10:15 AM CDT Therapy Visit [facility] 150 [place] [phone] Randy Maradiaga, DO [address] [place] [address] Delicia George, PT 150 [place], [place] 808907 05/14/2025 11:00 AM CDT Therapy Visit [address] [phone] Bindu Bueno, OD 909 [place] [address] Rubi Johnson, [address] [address] 06/01/2025 11:15 AM CDT Appointment [facility] Imaging [address] [place] [address] [place] [phone] Robin Zepeda MD [address] [place] [address] 382615 06/02/2025 2:20 PM CDT Virtual Visit [facility] [address] [phone] Robin Zepeda MD [address] [place] [address] 460155 07/01/2025 12:00 PM CDT Virtual Visit [facility] Rehabilitation Clinic [address] [phone] Santa [place] PA-C 909 [place] [address] 08/03/2025 4:30 PM PROFESSOR OF PHYSICS Virtual Visit [facility] [place] 909 [place] [phone] Any Joiner MD 420 [facility] 276 [place] [address] documented as of this encounter Visit Diagnoses Not on filedocumented in this encounter Additional Health Concerns Infection Onset Date Last Indicated Resolved Time Rule Out COVID-19 09/13/2024 09/13/2024 09/13/2024 12:31 PM PROFESSOR OF PHYSICS Rule Out COVID-19 11/14/2024 11/14/2024 11/14/2024 8:25 PM PROFESSOR OF PHYSICS Assessment Noted Time PHQ-9 Depression Total Score: 5 08/03/20 24 12:49 PM PROFESSOR OF PHYSICS documented as of this encounter Care Teams Bus Starter Relationship Specialty Start Date End Date Winston Villatoro OD [facility] 701 [facility] [address] [place] [address] PCP - Ophthalmology Ophthalmology 02/11/13 Denise Woodson APRN BLANKET BINDER [address] [place] [address] PCP - General Family Practice 09/21/20 Denise Woodson APRN BLANKET BINDER [address] [place] [address] Assigned PCP 07/17/20 Usha Simon APRN BLANKET BINDER [address] [place] [address] [id number] [place] [address] Nurse Practitioner Neurological Surgery 01/24/24 Dangelo Salinas MD [address] [place] [address] Neurology 01/27/24 Anastasia Stearns, RN Lead Senior Research Analyst 02/06/24 12/17/24 Germaine Aleman, W Community Health Worker Primary Care - CC 02/18/2412/17/24 Joya Lira [facility] [address] [place] [address] Pharmacist Pharmacist 05/25/24 Joya Lira [facility] [address] [place] [address] Assigned MTM Pharmacist 06/08/24 Fabi Coates MD [address] [place] [address] 75 [place], [place] 786905 Genetics, Clinical 06/18/24 Danna Cardenas PA-C 6405 [place] [address] Assigned Heart and Vascular Provider 07/08/24 12/05/24 Arthur Salas, HUMAN SERVICES SUPERVISOR [address] [address] Assigned Behavioral Health Provider 08/08/24 Randy Maradiaga DO 909 [place], [place] 580375 Assigned Neuroscience Provider 08/08/24 Tete Wang MD 2450 [place], [place] 682024 Genetics, Clinical 10/30/24 Dahlia Joyce MD 909 [place], [place] 407395 Radiology Neuroradiology 11/17/24 Lisa Zambrano MD 6405 [facility] [address] [place], [place] 737925 Assigned Heart and Vascular Provider 12/06/24 Tete Wnag MD 2450 [place], [place] 079764 Assigned Pediatric Specialist Provider 01/06/25 Any Joiner MD 420 [facility] 276 [place] [address] Assigned Pulmonology Provider 02/05/25 documented as of this encounter
--- OUTSIDE RECORDS SUMMARY | 2025-03-09 12:24 | XMS_ITS | Encounter Summary ---
Author Organization [place] Address [address] [place] [address] Care Team Providers Care Dielectric Machine Operator Name Role Phone Winston Villatoro Se OD Unavailable [phone] Denise Woodson APRN BOAT OAR MAKER Unavailable [phone] Denise Woodson APRN BOAT OAR MAKER Primary Care Provider Usha Simon APRN BOAT OAR MAKER Unavailable + [phone] Dangelo Salinas MD Unavailable Anastasia Stearns RN Unavailable Germaine Aleman CHW Unavailable [phone] Lisa Zambrano MD Unavailable Raul Hoyos MD Unavailable Joya Lira [facility] Unavailable +[phone] Joya Lira [facility] Unavailable +[phone] Fabi Coates MD Unavailable [phone] Robin Zepeda MD Unavailable +[phone] Danna Cardenas PA-C Unavailable +[phone] Felicita Desai RN Unavailable Unavailab Arthur Rios BEHAVIORAL GENETICIST Unavailable +[phone] Randy Maradiaga DO Unavailable + Tete Wang MD Unavailable Dahlia Joyce MD Unavailable +[phone] Lisa Zambrano MD Unavailable +- [phone] Tete Wang MD Unavailable +[phone] Any Joiner MD Unavailable +[phone] Encounter Details Date Type Department Care Team [...] How often do you attend christianity or jehovah's witness serv ices? 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 Not on file Not on file Not on file Not on file Not on file Not on file documented as of this encounter Plan of Treatment Upcoming Encounters Date Type Department Care Team (Late st Contact Info) Description 03/16/2025 8:00 AM CDT Virtual Visit [facility] 150 [place] [phone] Bindu Bueno, OD 909 [place] [address] Rubi Johnson, OT [address] 8845[address] 03/26/2025 12:45 PM CD[facility] [phone] Bindu Bueno, OD 909 [place] [address] Rubi Johnson, OT [address] 28[address] 04/02/2025 9:30 AM CDT [facility] [phone] Randy Maradiaga, DO 909 [place] [address] Delicia George, PT [address] [facility] [address] 04/06/2025 11:00 AM CDT Virtual Visit [address] [phone] Bindu Bueno, OD 909 [place] [address] Rubi Johnson, OT [address] [address] 04/06/2025 12:30 PM CDT Therapy Visit [address] [phone] Randy Maradiaga, DO 909 [place] [address] Delicia George, PT 150 [place] [address] 04/16/2025 11:00 AM CDT Therapy Visit [address] [phone] Bindu Bueno, OD 909 [place] [address] Rubi Johnson, OT [address] [address] 04/23/2025 12:45 PM CDT Therapy Visit [address] [phone] Bindu Bueno, OD 909 [place] [address] Rubi Johnson, OT [address] [address] 04/23/2025 2:00 PM CDT Therapy Visit [address] [phone] Randy Maradiaga, DO [address] [place] [address] Delicia George, PT 150 [place] [address] 04/30/2025 10:15 AM CDT Therapy Visit [address] [phone] Randy Maradiaga, DO [address] [place] [address] Delicia George, PT 150 [place] [address] 05/04/2025 11:00 AM CDT Virtual Visit [address] [phone] Myles Bindu, OD 909 [place] [address] Rubi Johnson, OT [address] [address] 05/07/2025 10:15 AM CDT Therapy Visit [address] [phone] Randy Maradiaga, DO [address] [place] [address] 115445 Delicia George, PT 150 [place] [address] 05/14/2025 10:15 AM CDT Therapy Visit [address] [phone] Randy Maradiaga DO [address] [place] [address] 994345 Delicia George, PT 150 [place] [address] 05/14/2025 11:00 AM CDT Therapy Visit [address] [phone] Bindu Bueno, OD [address] [place] [address] Rubi Johnson, [address] [address] 06/01/2025 11:15 AM CDT Appointment [facility] [place] [facility] [address] [place] [phone] Robin Zepeda MD [address] [place] [address] 06/02/2025 2:20 PM CDT Virtual [facility] [address] 3rd [place] [phone] Robin Zepeda MD [address] [place] [address] 038405 07/01/2025 12:00 PM CDT Virtual Visit [facility] [place] 909 [facility] 3rd [place] [phone] Santa Menon, PANilesC [address] [place] [address] 08/03/2025 4:30 PM PROPELLER DRIVEN AIRPLANE MECHANIC Virtual Visit [facility] [address] [phone] Any Joiner MD 420 [facility] 276 [place], [place] [phone] documented as of this encounter Visit Diagnoses Not on filedocumented in this encounter Additional Health Concerns Infection Onset Date Last Indicated Resolved Time Rule Out COVID-19 09/13/2024 09/13/2024 09/13/2024 12:31 PM PROPELLER DRIVEN AIRPLANE MECHANIC Rule Out COVID-19 11/14/2024 11/14/2024 11/14/2024 8:25 PM PROPELLER DRIVEN AIRPLANE MECHANIC Assessment Noted Time PHQ-9 Depression Total Score: 5 03/17/20 24 9:45 AM CDT documented as of this encounter Care Teams Dielectric Machine Operator Relationship Specialty Start Date End Date Winston Villatoro, [facility] [place] [address] [facility] [address] [place] [address] PCP - Ophthalmology Ophthalmology 02/11/13 Denise Woodson APRN BOAT OAR MAKER [address] [address] PCP - General Family Practice 09/21/20 Denise Woodson APRN BOAT OAR MAKER [address] [address] [address] Assigned PCP 07/17/20 Usha Simon APRN BOAT OAR MAKER 909 [id number] [place] [address] Nurse Practitioner Neurological Surgery 01/24/24 Dangelo Salinas MD [address] [place] [address] Neurology 01/27/24 Anastasia Stearns, RN Lead Building Analyst/Supervisor 02/06/24 12/17/24 Germaine Aleman, W Community Health Worker Primary Care - CC 02/18/2412/17/24 Lisa Zambrano MD [address] [place] [address] Assigned Heart and Vascular Provider 05/08/24 07/07/24 Raul Hoyos MD 909 [id number] [place] [address] Assigned Neuroscience Provider 05/08/24 07/07/24 Joya Lira RPH [address] [address] Pharmacist Pharmacist 05/25/24 Joya Lira Joleen [address] [place] [address] Assigned MTM Pharmacist 06/08/24 Fabi Coates MD [address] [facility] [address] [place] [address] Genetics, Clinical 06/18/24 Robin Zepeda MD 9 [facility] [id number] [place] [address] Assigned Neuroscience Provider 07/08/24 08/07/24 Danna Cardenas PA-C 6405 [place] [address] Assigned Heart and Vascular Provider 07/08/24 12/05/24 Felicita Desai, GEMA Lead Building Analyst/Supervisor 07/14/24 07/28/24 Arthur Salas [facility] [address] [address] Assigned Behavioral Health Provider 08/08/24 Randy Maradiaga DO [address] [place] [address] Assigned Neuroscience Provider 08/08/24 Tete Wang MD [address] [place] [address] Genetics, Clinical 10/30/24 Dahlia Joyce MD [address] [place] [address] Radiology Neuroradiology 11/17/24 Lisa Zambrano MD [address] [address] Assigned Heart and Vascular Provider 12/06/24 Tete Wang MD [address] [place] [address] Assigned Pediatric Specialist Provider 01/06/25 Any Joiner MD [address] [place] [address] Assigned Pulmonology Provider 02/05/25 documented as of this encounter
--- OUTSIDE RECORDS SUMMARY | 2025-03-09 12:24 | XMS_ITS | Encounter Summary ---
Author Organization [place] Address [address] [place] [address] Care Team Providers Care In Store Banker Name Role Phone Winston Villatoro Se OD Unavailable [phone] Denise Woodson APRN BRAND SPECIALIST Unavailable [phone] Denise Woodson APRN BRAND SPECIALIST Primary Care Provider Usha Simon APRN BRAND SPECIALIST Unavailable + [phone] Dangelo Salinas MD Unavailable Anastasia Stearns RN Unavailable [phone] Germaine Aleman CHW Unavailable [phone] Lisa Zambrano MD Unavailable Raul Hoyos MD Unavailable [phone] Joya Lira [facility] Unavailable [phone] Joya Lira [facility] Unavailable +[phone] Fabi Coates MD Unavailable [phone] Robin Zepeda MD Unavailable [phone] Danna Cardenas PA-C Unavailable +[phone] Felicita Desai RN Unavailable Unavailab Arthur Rios [facility] [facility] Unavailable +[phone] Randy Maradiaga DO Unavailable + Tete Wang MD Unavailable [phone] Dahlia Joyce MD Unavailable +[phone] Lisa Zambrano MD Unavailable +- [phone] Tete Wang MD Unavailable [phone] Any Joiner MD Unavailable [phone] Encounter Details Date Type Department Care Team (Late st Contact Info) Description 05/21/2024 MyC Medical Advice [facility] [address] [place] [address] Qing Valentine Social History Tobacco [...] How often do you attend pentecostalism or adventist serv ices? 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 Not on file Not on file Not on file Not on file Not on file Not on file documented as of this encounter Plan of Treatment Upcoming Encounters Date Type Department Care Team ([facility] st Contact Info) Description 03/16/2025 8:00 AM CDT Virtual Visit [address] [phone] Bindu Bueno, OD 909 [place] [address] Rubi Johnson, OT [address] 598287 03/26/2025 12:45 PM CDT Therapy Visit [address] [phone] Bindu Bueno, OD 909 [place], [place] 694565 Rubi Johnson, OT [address] 444137 04/02/2025 9:30 AM CDT Therapy Visit [address] [phone] Randy Maradiaga, DO 909 [place], [place] 772215 Delicia George, PT 150 [place], [place] 771257 04/06/2025 11:00 AM CDT Virtual Visit [address] [place] [phone] Bindu Bueno, OD 909 [place], [place] 157935 Rubi Johnson, OT [facility] 150 [place], [place] 278827 04/06/2025 12:30 PM CDT [facility] 150 [place] [phone] Randy Maradiaga, DO [address] [place] [address] Delicia George, PT 150 [facility] [place] 865467 04/16/2025 11:00 AM CDT [facility] [address] [place] [address] [phone] Bindu Bueno, OD 909 [place], [place] 467455 Rubi Johnson, OT [facility] 150 [place] [address] 04/23/2025 12:45 PM CDT [facility] 150 [place] [phone] Bindu Bueno, OD 909 [place], [place] 009075 Rubi Johnson, OT [facility] 150 [place] [address] 04/23/2025 2:00 PM CDT Therapy Visit [address] [phone] Randy Maradiaga, DO [address] [place] [address] 667415 Delicia George, PT 150 [place] [address] 04/30/2025 10:15 AM CDT Therapy Visit [address] [phone] Randy Maradiaga, DO [address] [place] [address] 727715 Delicia George, PT 150 [place] [address] 05/04/2025 11:00 AM CDT Virtual Visit [address] [phone] Bindu Bueno, OD 909 [place], [place] 098435 Rubi Johnson, OT [address] 384397 05/07/2025 10:15 AM CDT Therapy Visit [address] [phone] Randy Maradiaga, DO [address] [place] [address] Delicia George, PT 150 [place] [address] 05/14/2025 10:15 AM CDT Therapy Visit [address] [phone] Randy Maradiaga, [address] [place] [address] Delicia George, PT 150 [place] [address] 05/14/2025 11:00 AM CDT Therapy Visit [address] [phone] Bindu Bueno, OD [address] [place] [address] Rubi Johnson, [address] [address] 06/01/2025 11:15 AM CDT Appointment [facility] [address] [place] [phone] Robin Zepeda MD [address] [place] [address] 230945 06/02/2025 2:20 PM CDT Virtual Visit [facility] [address] 3rd [place] [phone] Robin Zepeda MD [address] [place] [address] 07/01/2025 12:00 PM CDT Virtual Visit [facility] [place] 909 [facility] 3rd [place] [phone] Santa Menon, PANilesC [address] [place] [address] 983345 08/03/2025 4:30 PM SLIP COVER OPERATOR Virtual Visit [facility] [address] [phone] Any Joiner MD 420 [facility] 276 [place], [place] 588575 documented as of this encounter Visit Diagnoses Not on filedocumented in this encounter Additional Health Concerns Infection Onset Date Last Indicated Resolved Time Rule Out COVID-19 09/13/2024 09/13/2024 09/13/2024 12:31 PM SLIP COVER OPERATOR Rule Out COVID-19 11/14/2024 11/14/2024 11/14/2024 8:25 PM SLIP COVER OPERATOR Assessment Noted Time PHQ-9 Depression Total Score: 5 03/17/20 24 9:45 AM CDT documented as of this encounter Care Teams In Store Banker Relationship Specialty Start Date End Date Winston Villatoro, AM[facility] 701 [facility] [address] [place] [address] PCP - Ophthalmology Ophthalmology 02/11/13 Denise Woodson APRN BRAND SPECIALIST [address] [address] [address] PCP - General Family Practice 09/21/20 Denise Woodson APRN BRAND SPECIALIST [address] [address] [address] Assigned PCP 07/17/20 Usha Simon APRN BRAND SPECIALIST [address] 661915 Nurse Practitioner Neurological Surgery 01/24/24 Dangelo Salinas MD [address] [place], [place] [address] Neurology 01/27/24 Anastasia Stearns, RN Lead Boiler Control Technician 02/06/24 12/17/24 Germaine Aleman, W Community Health Worker Primary Care - CC 02/18/2412/17/24 Lisa Zambrano MD [address] [facility] [address] [place] [address] Assigned Heart and Vascular Provider 05/08/24 07/07/24 Raul Hoyos MD [address] [place] [address] 751455 Assigned Neuroscience Provider 05/08/24 07/07/24 Joya Lira RPH [address] [place] [address] Pharmacist Pharmacist 05/25/24 Joya Lira RPH [address] [place] [address] Assigned MTM Pharmacist 06/08/24 Fabi Coates MD [address] [place] [address] 75 [place], [place] 462055 Genetics, Clinical 06/18/24 Robin Zepeda MD 9 [facility] [id number] [place] [address] Assigned Neuroscience Provider 07/08/24 08/07/24 Danna Cardenas PA-C 6405 [place] [address] Assigned Heart and Vascular Provider 07/08/24 12/05/24 Felicita Desai, GEMA Lead Boiler Control Technician 07/14/24 07/28/24 Arthur Salas [facility] [address] [place] [address] Assigned Behavioral Health Provider 08/08/24 Randy Maradiaga DO [address] [place] [address] Assigned Neuroscience Provider 08/08/24 Tete Wang MD 2450 [place] [address] Genetics, Clinical 10/30/24 Dahlia Joyce MD [address] [place] [address] Radiology Neuroradiology 11/17/24 Lisa Zambrano MD 6405 [facility] [address] [place] [address] Assigned Heart and Vascular Provider 12/06/24 Tete Wang MD 2450 [facility] [place] [address] Assigned Pediatric Specialist Provider 01/06/25 Any Joiner MD 420 [facility] 276 [place], [place] 253925 Assigned Pulmonology Provider 02/05/25 documented as of this encounter
--- OUTSIDE RECORDS SUMMARY | 2025-03-09 12:25 | XMS_ITS | Encounter Summary ---
Author Organization [place] Address [address] [place] [address] Care Team Providers Care Laundromat Manager Name Role Phone Winston Villatoro OD Unavailable [phone] Denise Woodson APRN LEAK HUNTER Unavailable [phone] Denise Woodson APRN LEAK HUNTER Primary Care Provider Usha Simon APRN LEAK HUNTER Unavailable + [phone] Dangelo Salinas MD Unavailable Joya Lira [facility] Unavailable [phone] Joya Lira [facility] Unavailable +[phone] Fabi Coates MD Unavailable [phone] Sinyigaya, Arthur CATEGORY CONSULTANT Unavailable +[phone] Randy Maradiaga DO Unavailable + Tete Wang MD Unavailable [phone] Dahlia Joyce MD Unavailable [phone] Lisa Zambrano MD Unavailable + [phone] Tete Wang MD Unavailable [phone] Any Joiner MD Unavailable [phone] Encounter Details Date Type Department Care Team (Latest Contact Info) Description 02/19/2025 Travel Social History Tobacco Use Types Packs/Day [...] re latives? 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 Gender Identity Not on file [...] 03/16/2025 8:00 AM CDT Virtual Visit M [address] [address] Bindu Bueno, OD 909 [place] [address] Rubi Johnson, OT VALARIE BALBUENA [address] 381187 03/26/2025 12:45 PM CDT Therapy Visit M [address] [phone] Bindu Bueno, OD 909 [place], [place] 454675 Rubi Johnson, OT [facility] 150 [place] [address] 04/02/2025 9:30 AM CDT Therapy Visit [facility] 150 [place] [phone] Randy Maradiaga, DO [address] [place] [address] 362305 Delicia George, PT 150 [place], [place] 625787 04/06/2025 11:00 AM CDT Virtual Visit [facility] 150 [place] [phone] Bindu Bueno, OD 909 [place] [address] Rubi Johnson, OT [facility] 150 [place] [address] 04/06/2025 12:30 PM CDT Therapy Visit [facility] 150 [place] [phone] Randy Maradiaga, DO [address] [place] [address] Delicia George, PT 150 [place], [place] 477927 04/16/2025 11:00 AM CDT Therapy Visit [address] [phone] Bindu Bueno, OD 909 [place] [address] Rubi Johnson, OT [address] [address] 04/23/2025 12:45 PM CDT Therapy Visit [address] [phone] Bindu Bueno, OD 909 [place] [address] Rubi Johnson, OT [address] [address] 04/23/2025 2:00 PM CDT Therapy Visit [address] [phone] Randy Maradiaga, DO [address] [place] [address] Delicia George, PT 150 [place] [address] 04/30/2025 10:15 AM CDT Therapy Visit [address] [phone] Randy Maradiaga, DO [address] [place] [address] Delicia George, PT 150 [facility] [place] [address] 05/04/2025 11:00 AM CDT Virtual Visit [address] [phone] Bindu Bueno, OD 909 [place] [address] Rubi Johnson, OT [address] [address] 05/07/2025 10:15 AM CDT Therapy Visit [address] [phone] Randy Maradiaga, DO [address] [place] [address] Delicia George, PT 150 [facility] [address] 05/14/2025 10:15 AM CDT Therapy Visit [address] [phone] Randy Maradiaga, DO [address] [place] [address] Delicia George, PT 150 [facility] [address] 05/14/2025 11:00 AM CDT Therapy Visit [address] [phone] Bindu Bueno, OD 909 [place], [place] 949275 Rubi Johnson, OT [facility] 150 [place] [address] 06/01/2025 11:15 AM CDT Appointment [facility] Imaging [address] [place] [place] [phone] Robin Zepeda MD [address] [place] [address] 909345 06/02/2025 2:20 PM CDT Virtual Visit [facility] [address] [phone] Robin Zepeda MD [address] [place] [address] 007655 07/01/2025 12:00 PM CDT Virtual Visit [facility] [address] [phone] Santa Menon, PA-C [address] [place] [address] 97661455 08/03/2025 4:30 PM MEDIA MARKETING SPECIALIST Virtual Visit [facility] for [facility] Clinic [address] [phone] Any Joiner MD [address] [place] [address] 177345 documented as of this encounter Goals Goal Patient Goal Type Associated Problems Recent Progress Patient-Stated? Author MYC ECC DEP WELCOME- GOAL TEMPLATE Care Plan MYC ECC DEP WELCOME- PROBLEM TEMPLATE No Background, Analytics documented as of this encounter Visit Diagnoses Not on filedocumented in this encounter Additional Health Concerns Active Problems Noted Date Diagnosed Date MYC ECC DEP WELCOME- PROBLEM TEMPLATE 02/15/2025 Assessment Noted Time PHQ-9 Depression Total Score: 11 025 11:39 AM CDT documented as of this encounter Care Teams Laundromat Manager Relationship Specialty Start Date End Date Winston Villatoro OD [facility] Cost [address] [place] [address] PCP - Ophthalmology Ophthalmology 02/11/13 Denise Woodson APRN LEAK HUNTER [address] [place] [address] PCP - General Family Practice 09/21/20 Denise Woodson APRN LEAK HUNTER [address] [place] [address] Assigned PCP 07/17/20 Usha Simon APRN LEAK HUNTER 9 [facility]121[place], [place] [address] Nurse Practitioner Neurological Surgery 01/24/24 Dangelo Salinas MD [address] [place] [address] Neurology 01/27/24 Joya Lira RPH [address] [place], [place] [phone] Pharmacist Pharmacist 05/25/24 Joya Lira RPH [address] [place], [place] [id number] Assigned MTM Pharmacist 06/08/24 Fabi Coates MD 420 [facility] 75 [place], [place] 417975 Genetics, Clinical 06/18/24 ChristophsamanthaledyNeishazohraabilio, CATEGORY CONSULTANT [address] [place] [address] Assigned Behavioral Health Provider 08/08/24 Randy Maradiaga DO 909 [place], [place] 397085 Assigned Neuroscience Provider 08/08/24 Tete Wang MD [address] [place] [address] 452354 Genetics, Clinical 10/30/24 Dahlia Joyce MD 909 [place], [place] 689585 Radiology Neuroradiology 11/17/24 Lisa Zambrano MD 6405 [facility] [address] [place] [address] Assigned Heart and Vascular Provider 12/06/24 Tete Wang MD [address] [place] [address] 693694 Assigned Pediatric Specialist Provider 01/06/25 Any Joiner MD 420 [facility] 276 [place] [address] Assigned Pulmonology Provider 02/05/25 documented as of this encounter
--- OUTSIDE RECORDS SUMMARY | 2025-03-09 12:25 | XMS_ITS | Encounter Summary ---
Author Organization [place] Address [address] [place] [address] Care Team Providers Care Welt Pocket Machine Operator Name Role Phone ShaunaTarikle Se OD Unavailable +[phone] Denise Woodson APRN MOLD WASHER Unavailable +[phone] Denise Woodson APRN MOLD WASHER Primary Care Provider Usha Simon APRN MOLD WASHER Unavailable + [phone] Dangelo Salinas MD Unavailable Joya Lira [facility] Unavailable +[phone] Joya Lira [facility] Unavailable +[phone] Fabi Coates MD Unavailable +[phone] SinyigayaArthur MILL ROLL REWINDER Unavailable +[phone] Randy Maradiaga DO Unavailable + Tete Wang MD Unavailable +[phone] Dahlia Joyce MD Unavailable +[phone] Lisa Zambrano MD Unavailable + [phone] Tete Wang MD Unavailable +[phone] Any Joiner MD Unavailable +[phone] Encounter Details Date Type Department Care Team (Late st Contact Info) Description 02/26/2025 [facility] [address] [place] [phone] QuinhagakDelicia bernal, PT [address] [place], [place] [address] Social History Tobacco Use Types Packs/Day Years [...] re latives? 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 Not on file Not on file Not on file Not on file Not on file Not on file documented as of this encounter Plan of Treatment Upcoming Encounters Date Type Department Care Team (Late st Contact Info) Description 03/16/2025 8:00 AM CDT Virtual Visit [facility] 150 [place] [phone] Bindu Bueno, OD [address] [place] [place] [place], [place] [address] Rubi Johnson, OT [facility] 150 [place] [address] 03/26/2025 12:45 PM CDT Therapy Visit [facility] 150 [place] [phone] BuenoBindu, OD 909 [place], [place] [address] Rubi Johnson, OT [address] [address] 04/02/2025 9:30 AM CDT Therapy Visit [address] [phone] Randy Maradiaga, DO 909 [place] [address] Delicia George, PT 150 [facility] [place] [address] 04/06/2025 11:00 AM CDT Virtual Visit [address] [phone] Bindu Bueno, OD 909 [place] [address] Rubi Johnson, OT [address] [address] 04/06/2025 12:30 PM CDT Therapy Visit [address] [phone] Randy Maradiaga, DO 909 [place] [address] Delicia George, PT [address] [place] [address] 04/16/2025 11:00 AM CDT Therapy Visit [address] [phone] Bindu Bueno, OD 909 [place], [place] 27[address] Rubi Johnson, OT [address] [address] 04/23/2025 12:45 PM CDT Therapy Visit [address] [phone] Bindu Bueno, OD 909 [place] [address] Rubi Johnson, OT [address] [address] 04/23/2025 2:00 PM CDT Therapy Visit [address] [phone] Randy Maradiaga, DO [address] [place] [address] Delicia George, PT [address] [place] [address] 04/30/2025 10:15 AM CDT Therapy Visit [address] [phone] Randy Maradiaga, DO [address] [place] [address] Delicia George, PT 150 [place], [place] 523197 05/04/2025 11:00 AM CDT Virtual Visit [address] [phone] Bindu Bueno, OD 909 [place] [address] Rubi Johnson, [address] [address] 05/07/2025 10:15 AM CDT Therapy Visit [address] [phone] Randy Maradiaga, DO [address] [place] [address] Delicia George, PT 150 [place] [address] 05/14/2025 10:15 AM CDT Therapy Visit [address] [phone] Randy Maradiaga, DO [address] [place] [address] Delicia George, PT 150 [place] [address] 05/14/2025 11:00 AM CDT Therapy Visit [facility] Services [address] [phone] Bindu Bueno, OD 909 [place], [place] [address] Rubi Johnson, OT [address] 489[address] 06/01/2025 11:15 AM CDT Appointment [facility] Specialty Care Center Imaging [address] [place] [phone] Robin Zepeda MD [address] [place] [address] 517555 06/02/2025 2:20 PM CDT Virtual Visit [facility] Neurosurgery [address] [phone] Robin Zepeda MD [address] [place] [address] 725315 07/01/2025 12:00 PM CDT Virtual Visit [facility] Physical Medicine and Rehabilitation [address] [phone] Santa Menon PA-C [address] [place] [address] 506165 08/03/2025 4:30 PM TRAINING OFFICER Virtual Visit [facility] for [facility] Science and Health [address] [phone] Any Joiner MD 420 [facility] 276 [place] [address] documented as of this encounter [...] documented as of this encounter Care Teams Welt Pocket Machine Operator Relationship Specialty Start Date End Date Winston Villatoro OD [facility] 701 [facility] [address] [place] [address] PCP - Ophthalmology Ophthalmology 02/11/13 Denise Woodson APRN MOLD WASHER [address] [place] [address] PCP - General Family Practice 09/21/20 Denise Woodson APRN MOLD WASHER [address] [place] [address] Assigned PCP 07/17/20 Usha Simon APRN MOLD WASHER 909 [facility] [place], [place] 489[address] Nurse Practitioner Neurological Surgery 01/24/24 Dangelo Salinas MD [address] [place] [address] Neurology 01/27/24 Joya Lira [facility] [address] [place] [address] Pharmacist Pharmacist 05/25/24 Joya Lira [facility] [address] [place] [address] Assigned MTM Pharmacist 06/08/24 Fabi Coates MD [address] [place] [address] 75 [place], [place] 27[address] Genetics, Clinical 06/18/24 Arthur Salas [facility] [address] [place] [address] Assigned Behavioral Health Provider 08/08/24 Randy Maradiaga DO 909 [place], [place] 334735 Assigned Neuroscience Provider 08/08/24 Tete Wang MD 2450 [place], [place] 996014 Genetics, Clinical 10/30/24 Dahlia Joyce MD 909 [place] [address] Radiology Neuroradiology 11/17/24 Lisa Zambrano MD [address] [facility] [address] [place] [address] Assigned Heart and Vascular Provider 12/06/24 Tete Wang MD 2450 [facility] [place] [address] Assigned Pediatric Specialist Provider 01/06/25 Any Joiner MD 420 [facility] 276 [place] [address] Assigned Pulmonology Provider 02/05/25 documented as of this encounter
--- OUTSIDE RECORDS SUMMARY | 2025-03-09 12:25 | XMS_ITS | Encounter Summary ---
Author Organization [place] Address [address] [place] [address] Care Team Providers Care Tool Repairer Name Role Phone Timmy Perez MD Unavailable Unavailable Yung Madrigal MD Unavailable Unavailable Frw, None Primary Care Provider Unavailabl e Winston Villatoro OD Unavailable [phone] Apple Sykes MD Primary Care Provider Unavailab Westley Vera MD Unavailable [phone] Alessandra Cabrales APRN JOINT SEALER Primary Car e Provider Serum, Clara Garland MD Primary Care Provider Serum, Clara Garland MD Unavailable +[phone] Serum, Clara Garland MD Unavailable +[phone] Denise Woodson APRN JOINT SEALER Unavailable +[phone] Denise Woodson APRN JOINT SEALER Primary Care Provider Usha Simon APRN JOINT SEALER Unavailable + [phone] Dangelo Salinas MD Unavailable Usha Simon APRN JOINT SEALER Unavailable + [phone] Anastasia Stearns RN Unavailable +[phone] Germaine Aleman CHW Unavailable +[phone] Robin Zepeda MD Unavailable +[phone] Lisa Zambrano MD Unavailable + [phone] Raul Hoyos MD Unavailable [phone] Joya Lira [facility] Unavailable +[phone] SorayaJoya [facility] Unavailable +[phone] Fabi Coates MD Unavailable [phone] DuaneRobin MD Unavailable +[phone] Danna Cardenas PA-C Unavailable +[phone] Felicita Desai RN Unavailable Unavailab Arthur Rios ACCOUNT SUPPORT MANAGER Unavailable +[phone] Randy Maradiaga DO Unavailable + Tete Wang MD Unavailable +[phone] Dahlia Joyce MD Unavailable +[phone] Lisa Zambrano MD Unavailable + [phone] Tete Wang MD Unavailable +[phone] Any Joiner MD Unavailable [phone] Encounter Details Date Type Department Care Team (Late st Contact Info) Description 01/31/2006 [facility] [place] HEARING AID SPECIALIST 701 [place] [phone] Timmy Perez MD Social History Tobacco Use Types Packs/Day Years Used Date Smoking Tobacco: Never Passive Smoke Exposure: Never Smokeless Tobacco: Never Alcohol Use Standard Drinks/Week Comments Not Currently 0 (1 standard drink = 0.6 oz pur e alcohol) minimal Comments No Sex and Gender Information Value Date Recorded Sex Assigned at Not on file 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 Sex 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 Gender Identity Not on file [...] Description 03/16/2025 8:00 AM CDT Virtual Visit [place] [address] [place] [phone] Bindu Bueno, OD 909 [place], [place] [address] Rubi Johnson, OT [address] [address] 03/26/2025 12:45 PM CDT Therapy Visit [address] [phone] Bindu Bueno, OD 909 [place] [address] Rubi Johnson, OT [address] 030047 04/02/2025 9:30 AM CDT Therapy Visit [address] [phone] Randy Maradiaga, DO 909 [place] [address] Delicia George, PT 150 [facility] [place] [address] 04/06/2025 11:00 AM CDT Virtual Visit [address] [phone] Bindu Bueno, OD 909 [place] [address] Rubi Johnson, OT [address] [place] [address] 04/06/2025 12:30 PM CDT [facility] [phone] aRndy Maradiaga, DO 909 [place] [address] Delicia George, PT 150 [facility] [place] [address] 04/16/2025 11:00 AM CDT Therapy Visit [address] [phone] Bindu Bueno, OD 909 [place], [place] 197[address] Rubi Johnson, OT [address] [address] 04/23/2025 12:45 PM CDT Therapy Visit [address] [phone] Bindu Bueno, OD 909 [place] [address] Rubi Johnson, OT [address] [address] 04/23/2025 2:00 PM CDT Therapy Visit [address] [phone] Randy Maradiaga, DO 909 [place] [address] Delicia George, PT 150 [place] [address] 04/30/2025 10:15 AM CDT Therapy Visit [address] [phone] Randy Maradiaga, DO [address] [place] [address] Delicia George, PT 150 [place] [address] 05/04/2025 11:00 AM CDT Virtual Visit [address] [phone] Bindu Bueno, OD 909 [place] [address] Rubi Johnson, OT [address] [address] 05/07/2025 10:15 AM CDT Therapy Visit [address] [phone] Randy Maradiaga, DO [address] [place] [address] Delicia George, PT 150 [place] [address] 05/14/2025 10:15 AM CDT Therapy Visit [facility] 150 [place] [phone] Randy Maradiaga, DO [address] [place] [address] Delicia George, PT 150 [place], [place] 8218[address] 05/14/2025 11:00 AM CDT Therapy Visit [address] [phone] Bindu Bueno, OD [address] [place] [address] Rubi Johnson, [address] [address] 06/01/2025 11:15 AM CDT Appointment [facility] Specialty Care Center Imaging [address] [place] [phone] Robin Zepeda MD [address] [place] [address] 877435 06/02/2025 2:20 PM CDT Virtual Visit [facility] Neurosurgery Clinic [address] [phone] Robin Zepeda MD [address] [place] [address] 673895 07/01/2025 12:00 PM CDT Virtual Visit [facility] Physical Medicine and Rehabilitation Clinic [address] [phone] Laurent-Santa Dejesus PA-C 909 [place] [address] 08/03/2025 4:30 PM SILK WINDING MACHINE OPERATOR Virtual Visit [facility] [place] [address] [place] [phone] Any Joiner MD 420 [facility] 276 [place], [place] 245[address] documented as of this encounter Visit Diagnoses Not on filedocumented in this encounter Additional Health Concerns Infection Onset Date Last Indicated Resolved Time Rule Out COVID-19 09/13/2024 09/13/2024 09/13/2024 12:31 PM SILK WINDING MACHINE OPERATOR Rule Out COVID-19 11/14/2024 11/14/2024 11/14/2024 8:25 PM SILK WINDING MACHINE OPERATOR documented as of this encounter Care Teams Tool Repairer Relationship Specialty Start Date End Date Timmy Perez MD PCP - Obstetrics/Gynecology 03/02/08 08/07/15 Yung Madrigal MD RETIRED PCP - Orthopaedics Orthopedics 08/26/12 01/20/24 Frw, None PCP - General Family Practice 08/26/12 05/03/13 Winston Villatoro, OD [facility] [address] [place] [address] PCP - Ophthalmology Ophthalmology 02/11/13 Apple Sykes MD [facility] [place] [address] [place] [address] PCP - General Family Practice 05/04/13 10/25/16 Westley Bates MD XXX RETIRED XXX [address] [place] [address] PCP - ENT Otolaryngology 05/14/13 07/28/18 EgorginaAlessandra Gómez APRN JOINT SEALER 3305 [facility] [place] [address] PCP - General Nurse Practitioner 10/26/16 02/06/17 Clara Cornell MD [address] [facility] [place] [address] PCP - General Internal Medicine 02/07/17 09/20/20 Clara Cornell MD 8675 [place] [address] PCP - Assigned PCP 01/17/17 11/18/18 Denise Woodson APRN JOINT SEALER [address] [place] [address] PCP - General Family Practice 09/21/20 Clara Cornell MD 8675 [place] [address] Assigned PCP 01/17/17 07/16/20 Denise Woodson APRN JOINT SEALER [address] [place] [address] Assigned PCP 07/17/20 Usha Simon APRN JOINT SEALER [address] [facility] [id number] [place] [address] Nurse Practitioner Neurological Surgery 01/24/24 Dangelo Salinas MD [address] [place] [address] Neurology 01/27/24 Usha Simon APRN JOINT SEALER [address] [address] Assigned Neuroscience Provider 02/06/24 03/07/24 Anastasia Stearns, RN Lead Cut Off Tender Glass 02/06/24 12/17/24 Germaine Aleman, [facility] Community Health Worker Primary Care - CC 02/18/24 12/17/24 Robin Zepeda MD [address] [address] Assigned Neuroscience Provider 03/08/24 05/07/24 Lisa Zambrano MD 6405 [facility] [address] [place] [address] Assigned Heart and Vascular Provider 05/08/24 07/07/24 Raul Hoyos MD [address] [place] [address] Assigned Neuroscience Provider 05/08/24 07/07/24 Joya Lira Joleen [address] [place] [address] Pharmacist Pharmacist 05/25/24 Joya Lira RPH [address] [place] [address] Assigned MTM Pharmacist 06/08/24 Fabi Coates MD [address] [place] [address] 75 [place] [address] Genetics, Clinical 06/18/24 Robin Zepeda MD [address] [facility] [facility] [id number] [place] [address] Assigned Neuroscience Provider 07/08/24 08/07/24 Danna Cardenas PA-C 6405 [place] [address] Assigned Heart and Vascular Provider 07/08/24 12/05/24 Felicita Desai, GEMA Lead Cut Off Tender Glass 07/14/24 07/28/24 Arthur Salas [facility] [address] [place] [address] Assigned Behavioral Health Provider 08/08/24 Randy Maradiaga DO [address] [place] [address] Assigned Neuroscience Provider 08/08/24 Tete Wang MD [address] [place] [address] Genetics, Clinical 10/30/24 Dahlia Joyce MD [address] [place] [address] Radiology Neuroradiology 11/17/24 Lisa Zambrano MD 6405 [facility] [address] [place] [address] Assigned Heart and Vascular Provider 12/06/24 [place] [address] [place] [address] Assigned Pediatric Specialist Provider 01/06/25 Any Joiner MD [address] [place] [address] 276 [place], [place] 49[address] Assigned Pulmonology Provider 02/05/25 documented as of this encounter
--- OUTSIDE RECORDS SUMMARY | 2025-03-09 12:25 | XMS_ITS | Encounter Summary ---
Author Organization [place] Address [address] [place] [address] Care Team Providers Care Tube Bending Machine Operator Name Role Phone Winston Villatoro Se OD Unavailable [phone] Denise Woodson APRN DIRECTOR OF MATERNITY SERVICES Unavailable +[phone] Denise Woodson APRN DIRECTOR OF MATERNITY SERVICES Primary Care Provider Usha Simon APRN DIRECTOR OF MATERNITY SERVICES Unavailable + [phone] Dangelo Salinas MD Unavailable Joya Lira [facility] Unavailable +[phone] Joya Lira [facility] Unavailable +[phone] Fabi Coates MD Unavailable [phone] SinyigayaArthur OPHTHALMIC SURGEON Unavailable +[phone] Randy Maradiaga DO Unavailable + Tete Wang MD Unavailable +[phone] Dahlia Joyce MD Unavailable +[phone] Lisa Zambrano MD Unavailable + [phone] Tete Wang MD Unavailable +[phone] Any Joiner MD Unavailable +[phone] Encounter Details Date Type Department Care Team (Late st Contact Info) Description 03/05/2025 [facility] Physical Medicine and Rehabilitation Clinic [address] 3rd [place] [phone] Santa Menon PA-C 903 [place], [place] [address]85 Social History Tobacco Use Types Packs/Day Years [...] Answer Date Recorded PHQ-2 Score 3 01/25/2025 [facility] Occupat ional Health - [...] in an overnight correction, or couch-surfing.) Yes 01/22/2025 Are you worried [...] on file Legal Sex Female 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 Gender Identity Not on file Sexual Orientation Not on file 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 Not on file Not on file Not on file Not on file Not on file Not on file documented as of this encounter Miscellaneous Notes * Telephone Encounter - Dorie Hamilton - 03/05/2025 2:23 PM CDT Patient confirmed scheduled appointment: Date: 07/01/25 Time: 12pm Visit type: Return Concussion Provider: Santa Dejesus Location: Virtual Testing/imaging: NA Additional notes: 4 month follow up Dorie Hamilton on 03/05/2025 at 2:24 PM documented in this encounter Plan of Treatment Upcoming Encounters Date Type Department Care Team (Late st Contact Info) Description 03/16/2025 8:00 AM CDT Virtual Visit [address] [phone] Bindu Bueno, OD 909 [place], [place] [address] Rubi Johnson, OT [address] 876637 03/26/2025 12:45 PM CDT Therapy Visit [address] [phone] Bindu Bueno, OD 909 [place] [address] Rubi Johnson, OT [address] 926067 04/02/2025 9:30 AM CDT Therapy Visit [address] [phone] Randy Maradiaga, DO 909 [place] [address] Delicia George, PT 150 [place], [place] 849717 04/06/2025 11:00 AM CDT Virtual Visit [address] [phone] Bindu Bueno, OD 909 [place] [address] Rubi Johnson, OT [address] [address] 04/06/2025 12:30 PM CDT Therapy Visit [address] [phone] Randy Maradiaga, DO 909 [place] [address] Delicia George, PT 150 [place] [address] 04/16/2025 11:00 AM CDT Therapy Visit [address] [phone] Bindu Bueno, OD 909 [place], [place] [address] Rubi Johnson, OT [address] [address] 04/23/2025 12:45 PM CDT Therapy Visit [facility] 150 [place] [phone] Bindu Bueno, OD 909 [place], [place] [address] Rubi Johnson, OT [address] [address] 04/23/2025 2:00 PM CDT Therapy Visit [address] [phone] Randy Maradiaga, DO [address] [place] [address] Delicia George, PT 150 [place] [address] 04/30/2025 10:15 AM CDT Therapy Visit [address] [phone] Randy Maradiaga, DO [address] [place] [address] 220595 Delicia George, PT 150 [place] [address] 05/04/2025 11:00 AM CDT Virtual Visit [address] [phone] Myles Bindu, OD 909 [place], [place] 570[address] Rubi Johnson, OT [address] [address] 05/07/2025 10:15 AM CDT Therapy Visit [address] [phone] Randy Maradiaga, DO [address] [place] [address] 917505 Delicia George, PT [address] [place] [address] 05/14/2025 10:15 AM CDT Therapy Visit [address] [phone] Randy Maradiaga DO [address] [place] [address] 675025 Delicia George, PT [address] [place] [address] 05/14/2025 11:00 AM CDT Therapy Visit [address] [phone] Bindu Bueno, OD [address] [place] [address] Rubi Johnson, [address] [address] 06/01/2025 11:15 AM CDT Appointment [facility] Specialty Care Center Imaging [address] [place] [phone] Robin Zepeda MD [address] [place] [address] 358405 06/02/2025 2:20 PM CDT Virtual Visit [facility] Neurosurgery Clinic [address] 3rd [place] [phone] Robin Zepeda MD [address] [place] [address] 318415 07/01/2025 12:00 PM CDT Virtual Visit [facility] Physical Medicine and Rehabilitation Clinic [address] 3rd [place] [address] Santa Menon, PANilesC [address] [place] [address] 569395 08/03/2025 4:30 PM SLUBBER RUNNER Virtual Visit [facility] for [facility] [address] [address] Any Joiner MD 420 [facility] 276 [place] [address] documented as of this encounter [...] as of this encounter Care Teams Tube Bending Machine Operator Relationship Specialty Start Date End Date Winston Villatoro OD [facility] [place] [address] [place] [address] PCP - Ophthalmology Ophthalmology 02/11/13 Denise Woodson APRN DIRECTOR OF MATERNITY SERVICES [address] [place] [place] [address] PCP - General Family Practice 09/21/20 Denise Woodson APRN DIRECTOR OF MATERNITY SERVICES [address] [facility] [place] [address] Assigned PCP 07/17/20 Usha Simon APRN DIRECTOR OF MATERNITY SERVICES 909 [facility] [id number] [place] [address] Nurse Practitioner Neurological Surgery 01/24/24 Dangelo Salinas MD [address] [place] [address] Neurology 01/27/24 Joya Lira [facility] [address] [place] [address] Pharmacist Pharmacist 05/25/24 Joya Lira [facility] [address] [place], [place] 428[address] Assigned MTM Pharmacist 06/08/24 Fabi Coates MD 420 [facility] 75 [place], [place] 249275 Genetics, Clinical 06/18/24 Arthur Salas, [facility] [address] [place] [address] Assigned Behavioral Health Provider 08/08/24 Randy Maradiaga DO 909 [place] [address] Assigned Neuroscience Provider 08/08/24 Tete Wang MD [address] [place] [address] Genetics, Clinical 10/30/24 Dahlia Joyce MD [address] [place] [address] 827515 Radiology Neuroradiology 11/17/24 [place] [address] [place] [address] [address] [place] [address] Assigned Heart and Vascular Provider 12/06/24 Tete Wang MD [address] [place] [address] 127364 Assigned Pediatric Specialist Provider 01/06/25 Any Joiner MD [address] [place] [address] 05285455 Assigned Pulmonology Provider 02/05/25 documented as of this encounter
--- OUTSIDE RECORDS SUMMARY | 2025-03-09 12:25 | XMS_ITS | Encounter Summary ---
Author Organization [facility] Address [address] [place] [address] Care Team Providers Care Office Clerk Name Role Phone Winston Villatoro Se OD Unavailable +[phone] Denise Woodson APRN PHOTOGRAPHY INTERN Unavailable +[phone] Denise Woodson APRN PHOTOGRAPHY INTERN Primary Care Provider Usha Simon APRN PHOTOGRAPHY INTERN Unavailable + [phone] Dangelo Salinas MD Unavailable Anastasia Stearns RN Unavailable Germaine Aleman CHW Unavailable +[phone] Robin Zepeda MD Unavailable [phone] Lisa Zambrano MD Unavailable [phone] Raul Hoyos MD Unavailable Joya Lira [facility] Unavailable +[phone] Joya Lira [facility] Unavailable +[phone] Fabi Coates MD Unavailable [phone] Robin Zepeda MD Unavailable Danna CardenasC Unavailable +[phone] Felicita Desai RN Unavailable Unavailab Arthur Rios Unavailable +[phone] Randy Maradiaga DO Unavailable + Tete Wang MD Unavailable +[phone] Dahlia Joyce MD Unavailable +[phone] Lisa Zambrano MD Unavailable + [phone] Tete Wang MD Unavailable +[phone] Any Joiner MD Unavailable +[phone] Encounter Details Date Type Department Care Team (Late st Contact Info) Description 04/02/2024 MyC Medical Advice [facility] [address] [place] [address] Liliane Cobos Social History Tobacco [...] How often do you attend gnosticist or druze serv ices? Never 02/28/2024 Do [...] Answer Date Recorded PHQ-2 Score 0 03/17/2024 [facility] - Occupational Stress [...] file Legal Sex Female 4:[address] Gender Identity Not on file Sexual Orientation [...] 03/16/2025 8:00 AM CDT Virtual Visit [address] [phone] Bindu Bueno, OD 909 [place], [place] 246405 Rubi Johnson, OT [address] [address] 03/26/2025 12:45 PM CDT Therapy Visit [address] [phone] BuenoBindu flores, OD 909 [place], [place] [address] Rubi Johnson, OT [address] 425087 04/02/2025 9:30 AM CDT Therapy Visit [address] [phone] Randy Maradiaga, DO 909 [place], [place] 592525 Delicia George, PT 150 [place], [place] 9[address]27 04/06/2025 11:00 AM CDT Virtual Visit [facility] 150 [place] [phone] Bindu Bueno, OD 909 [place] [address] Rubi Johnson, OT [address] 424747 04/06/2025 12:30 PM CDT Therapy Visit [address] [phone] Randy Maradiaga, DO [address] [place] [address] Delicia George, PT 150 [place] [address] 04/16/2025 11:00 AM CDT Therapy Visit [address] [phone] Bindu Bueno, OD 909 [place], [place] 25[address] Rubi Johnson, OT [address] [address] 04/23/2025 12:45 PM CDT Therapy Visit [address] [phone] Bindu Bueno, OD 909 [place] [address] Rubi Johnson, OT [address] [address] 04/23/2025 2:00 PM CDT Therapy Visit [address] [phone] Randy Maradiaga, DO [address] [place] [address] Delicia George, PT 150 [facility] [place] [address] 04/30/2025 10:15 AM CDT Therapy Visit [address] [phone] Randy Maradiaga, DO [address] [place] [address] Delicia George, PT 150 [facility] [place] [address] 05/04/2025 11:00 AM CDT Virtual Visit [address] [phone] Bindu Bueno, OD 909 [place] [address] Rubi Johnson, OT [address] [address] 05/07/2025 10:15 AM CDT Therapy Visit [address] [phone] Randy Maradiaga, DO 909 [place] [address] Delicia George, PT [address] [place] [address] 05/14/2025 10:15 AM CDT Therapy Visit [address] [phone] Randy Maradiaga, DO 909 [place] [address] Delicia George, PT 150 [facility] [place] [address] 05/14/2025 11:00 AM CDT Therapy Visit [address] [phone] Bindu Bueno, OD 909 [place], [place] 0[address]215 Rubi Johnson, [address] [address] 06/01/2025 11:15 AM CDT Appointment [facility] [address] [place] [phone] Robin Zepeda MD [address] [place], [place] [address], [place] [address] 06/02/2025 2:20 PM CDT Virtual Visit [facility] [address] 3rd [place] [phone] Robin Zepeda MD [address] [place] [address] [id number] [place] [address] 07/01/2025 12:00 PM CDT Virtual Visit [facility] [address] 3rd [place] [phone] Santa Menon, PA-C [address] [place] [address] 048175 08/03/2025 4:[address]ILER Virtual Visit [facility] [address] [phone] Any Joiner MD 420 [facility] 276 [place], [place] [id number] documented as of this encounter Visit Diagnoses Not on filedocumented in this encounter Additional Health Concerns Infection Onset Date Last Indicated Resolved Time Rule Out COVID-19 09/13/2024 09/13/2024 09/13/2024 12:[address] OILER Rule Out COVID-19 11/14/2024 11/14/2024 11/14/2024 8:[address] OILER Assessment Noted Time PHQ-9 Depression Total Score: 5 03/17/20 24 9:45 AM CDT documented as of this encounter Care Teams Office Clerk Relationship Specialty Start Date End Date Winston Villatoro OD [facility] [place] [address] [facility] [address] [place] [address] PCP - Ophthalmology Ophthalmology 02/11/13 Denise Woodson APRN PHOTOGRAPHY INTERN [address] [address] [address] PCP - General Family Practice 09/21/20 Denise Woodson APRN PHOTOGRAPHY INTERN [address] [place] [address] Assigned PCP 07/17/20 Usha Simon APRN PHOTOGRAPHY INTERN [address] [address] Nurse Practitioner Neurological Surgery 01/24/24 Dangelo Slainas MD [address] [place] [address] Neurology 01/27/24 Anastasia Stearns, RN Lead Inspector Fuel Hose 02/06/24 12/17/24 Germaine lAeman, W Community Health Worker Primary Care - CC 02/18/2412/17/24 Robin Zepeda MD [address] [address] Assigned Neuroscience Provider 03/08/24 05/07/24 Lisa Zambrano MD [address] [facility] [address] [place] [address] Assigned Heart and Vascular Provider 05/08/24 07/07/24 Raul Hoyos MD [address] [address] Assigned Neuroscience Provider 05/08/24 07/07/24 Joya Lira Joleen [address] [address] Pharmacist Pharmacist 05/25/24 Joya Lira, [facility] [address] [place] [address] Assigned MTM Pharmacist 06/08/24 Fabi Coates MD 420 [facility] 75 [place] [address] Genetics, Clinical 06/18/24 Robin Zepeda MD [address] [place] [address] [id number] [place], [place] 724885 Assigned Neuroscience Provider 07/08/24 08/07/24 Danna Cardenas PA-C 6405 [place], [place] 998745 Assigned Heart and Vascular Provider 07/08/24 12/05/24 Felicita Desai, GEMA Lead Inspector Fuel Hose 07/14/24 07/28/24 Arthur Salas [facility] [address] [address] Assigned Behavioral Health Provider 08/08/24 Randy Maradiaga DO [address] [place] [address] 289695 Assigned Neuroscience Provider 08/08/24 Tete Wang MD 2450 [place], [place] 539084 Genetics, Clinical 10/30/24 Dahlia Joyce MD [address] [place] [address] 933975 Radiology Neuroradiology 11/17/24 Lisa Zambrano MD 6405 [facility] [address] [place], [place] 0[address]35 Assigned Heart and Vascular Provider 12/06/24 Tete Wang MD [address] [place] [address] Assigned Pediatric Specialist Provider 01/06/25 Any Joiner MD 420 [facility] 276 [place] [address] Assigned Pulmonology Provider 02/05/25 documented as of this encounter
--- OUTSIDE RECORDS SUMMARY | 2025-03-09 12:25 | XMS_ITS | Encounter Summary ---
Author Organization [facility] Address [address] [place] [address] Care Team Providers Care Office Manager Receptionist Name Role Phone Winston Villatoro Se OD Unavailable [phone] Denise Woodson APRN SKID MACHINE OPERATOR Unavailable [phone] Denise Woodson APRN SKID MACHINE OPERATOR Primary Care Provider Usha Simon APRN SKID MACHINE OPERATOR Unavailable + [phone] Dangelo Salinas MD Unavailable Anastasia Stearns RN Unavailable +[phone] Germaine Aleman CHW Unavailable [phone] Lisa Zambrano MD Unavailable Raul Hoyos MD Unavailable Joya Lira [facility] Unavailable +[phone] Joya Lira [facility] Unavailable +[phone] Fabi Coates MD Unavailable [phone] Robin Zepeda MD Unavailable [phone] Danna Cardenas PA-C Unavailable +[phone] Felicita Desai RN Unavailable Unavailab Arthur Rios [employer] SANDER Unavailable +[phone] Randy Maradiaga DO Unavailable + Tete Wang MD Unavailable Dahlia Joyce MD Unavailable +[phone] Lisa Zambrano MD Unavailable + [phone] Tete Wang MD Unavailable [phone] Any Joiner MD Unavailable [phone] Encounter Details Date Type Department Care Team (Late st Contact Info) Description 07/07/2024 MyC Medical Advice [facility] [address] 3rd [place] [address] Liliane Cobos Social History Tobacco [...] How often do you attend scientology or sikh serv ices? 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 Not on file Not on file Not on file Not on file Not on file Not on file documented as of this encounter Plan of Treatment Upcoming Encounters Date Type Department Care Team ([facility] st Contact Info) Description 03/16/2025 8:00 AM CDT Virtual Visit [address] [phone] Bindu Bueno, OD 909 [place], [place] [address] Rubi Johnson, OT [address] 912407 03/26/2025 12:45 PM CDT Therapy Visit [address] [phone] Bindu Bueno, OD 909 [place], [place] 7470[address] Rubi Johnson, OT [address] 759697 04/02/2025 9:30 AM CDT Therapy Visit [address] [phone] Randy Maradiaga, DO 909 [place], [place] 37[address] Delicia George, PT 150 [place], [place] 586427 04/06/2025 11:00 AM CDT Virtual Visit [address] [place] [phone] Bindu Bueno, OD 909 [place], [place] 153425 Rubi Johnson, OT [facility] 150 [place], [place] 260187 04/06/2025 12:30 PM CDT Therapy Visit [facility] 150 [place] [phone] [place] [address] [place] [address] Delicia George, PT 150 [facility] [place] 689597 04/16/2025 11:00 AM CDT Therapy Visit [facility] [address] [place] [phone] Bindu Bueno, OD 909 [place], [place] 685[address] Rubi Johnson, OT [facility] 150 [place] [address] 04/23/2025 12:45 PM CDT Therapy Visit [facility] 150 [place] [phone] Bindu Bueno, OD 909 [place] [address] Rubi Johnson, OT [facility] 150 [place] [address] 04/23/2025 2:00 PM CDT Therapy Visit [address] [phone] Randy Maradiaga, DO [address] [place] [address] Delicia George, PT 150 [place] [address] 04/30/2025 10:15 AM CDT Therapy Visit [address] [phone] Randy Maradiaga, DO [address] [place] [address] 385095 Delicia George, PT 150 [place] [address] 05/04/2025 11:00 AM CDT Virtual Visit [address] [phone] Bindu Bueno, OD 909 [place] [address] Rubi Johnson, OT [address] [address] 05/07/2025 10:15 AM CDT Therapy Visit [address] [phone] Randy Maradiaga, DO [address] [place] [address] Delicia George, PT 150 [place] [address] 05/14/2025 10:15 AM CDT Therapy Visit [address] [phone] Randy Maradiaga, [address] [place] [address] Delicia George, PT [address] [place] [address] 05/14/2025 11:00 AM CDT Therapy Visit [address] [phone] Bindu Bueno, OD [address] [place] [address] 286035 Rubi Johnson, [address] [address] 06/01/2025 11:15 AM CDT Appointment [facility] Imaging [address] [place] [phone] Robin Zepeda MD [address] [place] [address] 06/02/2025 2:20 PM CDT Virtual Visit [facility] [address] 3rd [place] [phone] Robin Zepeda MD [address] [place] [address] 07/01/2025 12:00 PM CDT Virtual Visit [facility] [place] 909 [facility] 3rd [place] [phone] Santa Menon, PANilesC [address] [place] [address] 08/03/2025 4:30 PM BEAM DYER RECESSED VAT Virtual Visit [facility] [address] [phone] Any Joiner MD 420 [facility] 276 [place], [place] 924055 documented as of this encounter Visit Diagnoses Not on filedocumented in this encounter Additional Health Concerns Infection Onset Date Last Indicated Resolved Time Rule Out COVID-19 09/13/2024 09/13/2024 09/13/2024 12:31 PM BEAM DYER RECESSED VAT Rule Out COVID-19 11/14/2024 11/14/2024 11/14/2024 8:25 PM BEAM DYER RECESSED VAT Assessment Noted Time PHQ-9 Depression Total Score: 5 03/17/20 24 9:45 AM CDT documented as of this encounter Care Teams Office Manager Receptionist Relationship Specialty Start Date End Date Winston Villatoro, [facility] [address] [facility] [address] [place] [address] PCP - Ophthalmology Ophthalmology 02/11/13 Denise Woodson APRN SKID MACHINE OPERATOR [address] [address] [address] PCP - General Family Practice 09/21/20 Denise Woodson APRN SKID MACHINE OPERATOR [address] [address] [address] Assigned PCP 07/17/20 Usha Simon APRN SKID MACHINE OPERATOR [address] 733905 Nurse Practitioner Neurological Surgery 01/24/24 Dangelo Salinas MD [address] [place] [address] Neurology 01/27/24 Anastasia Stearns, RN Lead Financial Service Professional 02/06/24 12/17/24 Germaine Aleman, W Community Health Worker Primary Care - CC 02/18/2412/17/24 Lisa Zambrano MD [address] [facility] [address] [place] [address] Assigned Heart and Vascular Provider 05/08/24 07/07/24 Raul Hoyos MD [address] [place] [address] 316765 Assigned Neuroscience Provider 05/08/24 07/07/24 Joya Lira RPH [address] [place] [address] Pharmacist Pharmacist 05/25/24 Joya Lira RPH [address] [place] [address] Assigned MTM Pharmacist 06/08/24 Fabi Coates MD [address] [place] [address] 75 [place], [place] [address] Genetics, Clinical 06/18/24 Robin Zepeda MD 9 [facility] [place] [id number] [place] [address] Assigned Neuroscience Provider 07/08/24 08/07/24 Danna Cardenas PA-C 6405 [place] [address] Assigned Heart and Vascular Provider 07/08/24 12/05/24 Felicita Desai, GEMA Lead Financial Service Professional 07/14/24 07/28/24 Arthur Salas [facility] [address] [place] [address] Assigned Behavioral Health Provider 08/08/24 Randy Maradiaga DO [address] [place] [address] 061325 Assigned Neuroscience Provider 08/08/24 Tete Wang MD 2450 [place] [address] Genetics, Clinical 10/30/24 Dahlia Joyce MD [address] [place] [address] Radiology Neuroradiology 11/17/24 Lisa Zambrano MD 6405 [facility] [address] [place] [address] Assigned Heart and Vascular Provider 12/06/24 Tete Wang MD 2450 [place] [address] Assigned Pediatric Specialist Provider 01/06/25 Any Joiner MD 420 [facility] 276 [place], [place] 8[address]25 Assigned Pulmonology Provider 02/05/25 documented as of this encounter
--- OUTSIDE RECORDS SUMMARY | 2025-03-09 12:25 | XMS_ITS | Encounter Summary ---
Author Organization [facility] Address [address] [place] [address] Care Team Providers Care Sprue Cutting Press Operator Name Role Phone Timmy Perez MD Unavailable Unavailable Yung Madrigal MD Unavailable Unavailable Frw, None Primary Care Provider Unavailabl e Winston Villatoro OD Unavailable [phone] Apple Sykes MD Primary Care Provider Unavailab Westley Vera MD Unavailable +[phone] Alessandra Cabrales APRN HOCKEY INSTRUCTOR Primary Car e Provider Serum, Clara Garland MD Primary Care Provider Serum, Clara Garland MD Unavailable +[phone] Serum, Clara Garland MD Unavailable [phone] Denise Woodson APRN HOCKEY INSTRUCTOR Unavailable +[phone] Denise Woodson APRN HOCKEY INSTRUCTOR Primary Care Provider Usha Simon APRN HOCKEY INSTRUCTOR Unavailable + [phone] Dangelo Salinas MD Unavailable Usha Simon APRN HOCKEY INSTRUCTOR Unavailable + [phone] Anastasia Stearns RN Unavailable +[phone] Germaine Aleman CHW Unavailable +[phone] Robin Zepeda MD Unavailable +[phone] Lisa Zambrano MD Unavailable + [phone] Raul Hoyos MD Unavailable [phone] Joya Lira [facility] Unavailable +[phone] SorayaJoya [facility] Unavailable [phone] Fabi Coates MD Unavailable [phone] DuaneRobin MD Unavailable +[phone] Danna Cardenas PA-C Unavailable +[phone] Felicita Desai RN Unavailable Unavailab gabino Arthur Salas AIRBRUSH ARTIST PHOTOGRAPHY Unavailable +[phone] Randy Maradiaga DO Unavailable + Tete Wang MD Unavailable [phone] Dahlia Joyce MD Unavailable [phone] Lisa Zambrano MD Unavailable + [phone] Tete Wang MD Unavailable +[phone] Any Joiner MD Unavailable +[phone] Encounter Details Date Type Department Care Team (Late st Contact Info) Description 01/30/2006 [facility] [place] Inpatient Dept [address] [place] [address] [phone] Frw, Inpatient Provider Social History Tobacco Use Types Packs/Day Years Used Date Smoking Tobacco: Never Passive Smoke Exposure: Never Smokeless Tobacco: Never Alcohol Use Standard Drinks/Week Comments Not Currently 0 (1 standard drink = 0.6 oz pur e alcohol) minimal Comments No Sex and Gender Information Value Date Recorded Sex Assigned at Not on file Legal Sex Female 4:05 AM ORTHODONTIC TECHNICIAN ASSISTANT Gender Identity Not on file Sexual Orientation Not on file 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 PROCEDURE: TOTAL VAGINAL HYSTERECTOMY. SURGEON: Chris FITNESS PROFESSIONAL: Radha ANESTHESIA: Spinal ESTIMATED BLOOD LOSS: 100 [...] 8:00 AM CDT [facility] Visit [facility] [address] [place] [phone] Bindu Bueno, OD 909 [place], [place] 977[address] Rubi Johnson, OT [address] 785417 03/26/2025 12:45 PM CDT Therapy Visit [facility] 150 [place] [phone] Bindu Bueno, OD 909 [place], [place] 591195 Rubi Johnson, OT [address] 318177 04/02/2025 9:30 AM CDT Therapy Visit [address] [phone] Randy Maradiaga, DO 909 [place], [place] 72[address] Delicia George, PT 150 [facility] [place] [address] 04/06/2025 11:00 AM CDT Virtual Visit [address] [phone] Bindu Bueno, OD 909 [place], [place] 113365 Rubi Johnson, OT [facility] 150 [place] [address] 04/06/2025 12:30 PM CDT Therapy Visit [facility] 150 [facility] [place] [phone] Randy Maradiaga, DO 909 [place] [address] Delicia George, PT 150 [facility] [place] [address] 04/16/2025 11:00 AM CDT Therapy Visit [address] [phone] Bindu Bueno, OD 9 [place] [address] Rubi Johnson, OT [facility] [address] 04/23/2025 12:45 PM CDT Therapy Visit [facility] [phone] Bindu Bueno, OD 909 [place] [address] Rbui Johnson, OT [facility] 150 [place] [address] 04/23/2025 2:00 PM CDT Therapy Visit [facility] [phone] Randy Maradiaga, DO 909 [place] [address] Delicia George, PT 150 [facility] [place] [address] 04/30/2025 10:15 AM CDT Therapy Visit [address] [phone] Randy Maradiaga, DO [address] [place] [address] Delicia George, PT 150 [place] [address] 05/04/2025 11:00 AM CDT Virtual Visit [address] [phone] Bindu Bueno, OD 909 [place] [address] Rubi Johnson, [address] [address] 05/07/2025 10:15 AM CDT Therapy Visit [address] [phone] Randy Maradiaga, DO [address] [place] [address] 972715 Delicia George, PT 150 [place] [address] 05/14/2025 10:15 AM CDT Therapy Visit [facility] 150 [place] [phone] Randy Maradiaga, DO [address] [place] [address] Delicia George, PT 150 [place], [place] 895037 05/14/2025 11:00 AM CDT Therapy Visit [address] [phone] Bindu Bueno, OD 909 [place] [address] Rubi Johnson, [address] [address] 06/01/2025 11:15 AM CDT Appointment [facility] Imaging [address] [place] [phone] Robin Zepeda MD [address] [place] [address] 118275 06/02/2025 2:20 PM CDT Virtual Visit [facility] [address] [phone] Robin Zepeda MD [address] [place] [address] 652425 07/01/2025 12:00 PM CDT Virtual Visit [facility] [address] [phone] Santa Menon PA-C 909 [place] [address] 08/03/2025 4:30 PM ORTHODONTIC TECHNICIAN ASSISTANT Virtual Visit [facility] [address] [phone] Any Joiner MD 420 [facility] 276 [place] [address] documented as of this encounter Visit Diagnoses Not on filedocumented in this encounter Additional Health Concerns Infection Onset Date Last Indicated Resolved Time Rule Out COVID-19 09/13/2024 09/13/2024 09/13/2024 12:31 PM ORTHODONTIC TECHNICIAN ASSISTANT Rule Out COVID-19 11/14/2024 11/14/2024 11/14/2024 8:25 PM ORTHODONTIC TECHNICIAN ASSISTANT documented as of this encounter Care Teams Sprue Cutting Press Operator Relationship Specialty Start Date End Date Timmy Perez MD PCP - Obstetrics/Gynecology 03/02/08 08/07/15 Yung Madrigal MD RETIRED PCP - Orthopaedics Orthopedics 08/26/12 01/20/24 Frw, None PCP - General Family Practice 08/26/12 05/03/13 Winston Villatoro OD [facility] [place] [address] [place] [address] PCP - Ophthalmology Ophthalmology 02/11/13 Apple Sykes MD [facility] [place] [address] [place] [address] PCP - General Family Practice 05/04/13 10/25/16 Westley Bates MD XXX RETIRED XXX [address] [place] [address] PCP - ENT Otolaryngology 05/14/13 07/28/18 GeorginaAlessandra Celeste APRN HOCKEY INSTRUCTOR [address] [facility] [place] [address] PCP - General Nurse Practitioner 10/26/16 02/06/17 Clara Cornell MD [address] [facility] [place] [address] PCP - General Internal Medicine 02/07/17 09/20/20 Clara Cornell MD 8675 [place] [address] PCP - Assigned PCP 01/17/17 11/18/18 Denise Woodson APRN HOCKEY INSTRUCTOR [address] [place] [address] PCP - General Family Practice 09/21/20 Clara Cornell MD 8675 [place] [address] Assigned PCP 01/17/17 07/16/20 Denise Woodson APRN HOCKEY INSTRUCTOR [address] [place] [address] Assigned PCP 07/17/20 Usha Simon APRN HOCKEY INSTRUCTOR 909 [facility]121CJ [place] [address] Nurse Practitioner Neurological Surgery 01/24/24 Dangelo Salinas MD [address] [place] [address] Neurology 01/27/24 Usha Simon APRN HOCKEY INSTRUCTOR [address] [place] [address] Assigned Neuroscience Provider 02/06/24 03/07/24 Anastasia Stearns, RN Lead Bell Maker 02/06/24 12/17/24 Germaine Aleman, W Community Health Worker Primary Care - CC 02/18/24 12/17/24 Robin Zepeda MD [address] [place] [address] Assigned Neuroscience Provider 03/08/24 05/07/24 Lisa Zambrano MD 6405 [facility] [address] [place] [address] Assigned Heart and Vascular Provider 05/08/24 07/07/24 Raul Hoyos MD [address] [place] [address] Assigned Neuroscience Provider 05/08/24 07/07/24 Joya Lira Joleen [address] [place] [address] Pharmacist Pharmacist 05/25/24 Joya Lira RPH [address] [place] [address] Assigned MTM Pharmacist 06/08/24 Fabi Coates MD [address] [place] [address] 75 [place] [address] Genetics, Clinical 06/18/24 Robin Zepeda MD 9 [facility] [id number] [place] [address] Assigned Neuroscience Provider 07/08/24 08/07/24 Danna Cardenas PA-C 6405 [place] [address] Assigned Heart and Vascular Provider 07/08/24 12/05/24 Felicita Desai, GEMA Lead Bell Maker 07/14/24 07/28/24 Arthur Salas [facility] [address] [place] [address] Assigned Behavioral Health Provider 08/08/24 Randy Maradiaga DO [address] [place] [address] 321105 Assigned Neuroscience Provider 08/08/24 Tete Wang MD 2450 [place] [address] Genetics, Clinical 10/30/24 Dahlia Joyce MD [address] [place] [address] Radiology Neuroradiology 11/17/24 Lisa Zambrano MD 6405 [facility] [address] [place] [address] Assigned Heart and Vascular Provider 12/06/24 Tete Wang MD [address]50 [facility] [address] Assigned Pediatric Specialist Provider 01/06/25 Any Joiner MD 420 [facility] 276 [place], [place] 6[address]175 Assigned Pulmonology Provider 02/05/25 documented as of this encounter
--- OUTSIDE RECORDS SUMMARY | 2025-03-09 12:25 | XMS_ITS | Encounter Summary ---
Author Organization [facility] Address [address] [place] [address] Care Team Providers Care Graphic Engineer Name Role Phone Darius Shaw M.D. Primary Care Provider [phone] Reason for Visit * Reason Onset Date Comments Appt Request 01/20/2025 Encounter Details Date Type Department Care Team (Late st Contact Info) Description 01/20/2025 Clinical Communication Department of Medical Genetics in [place], [place] [address] [place] [address] Prescheduling, Provider Appt Request Social History Tobacco Use Types Packs/Day Years Used Date Smoking Tobacco: Never Smokeless Tobacco: Never Alcohol Use Standard Drinks/Week Comments Never 0 (1 standard drink = 0.6 oz pur e alcohol) [facility] Utilities Answer Date Recorded In the past 12 months has e [employer], gas, oil, or water [employer] threatened to shut off services in your [...] your living situation today? I have a [facility] place to live 01/01/2025 Education Answer Date Recorded What is the highest level of school you have completed or the highest degree you have received? 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 [address] [place] [phone] PCP - General Family Medicine 09/27/22 documented as of this encounter
--- OUTSIDE RECORDS SUMMARY | 2025-03-09 12:25 | XMS_ITS | Encounter Summary ---
Author Organization [facility] Address [address] [place] [address] Care Team Providers Care Box Person Name Role Phone Darius Shaw M.D. Primary Care Provider [phone] Reason for Visit * Reason Comments Med Refill Encounter Details Date Type Department Care Team (Late st Contact Info) Description 02/01/2025 Refill Department of Family Medicine, [facility], in [address] [phone] Darius Shaw M.D. [address] [place] [address] [phone] Med Refill Social History Tobacco Use Types Packs/Day Years Used Date Smoking Tobacco: Never Smokeless Tobacco: Never Alcohol Use Standard Drinks/Week Comments Never 0 (1 standard drink = 0.6 oz pur e alcohol) [facility] Utilities Answer Date Recorded In the past 12 months has e [employer], [employer], oil, or water [employer] threatened to shut off services in your [...] your living situation today? I have a [facility] place to live 01/01/2025 Education Answer Date Recorded What is the highest level of school you have completed or the highest degree you have received? 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 [id number] [place] [phone] PCP - General Family Medicine 09/27/22 documented as of this encounter
--- OUTSIDE RECORDS SUMMARY | 2025-03-09 12:25 | XMS_ITS | Encounter Summary ---
Author Organization [facility] Address [address] [place] [address] Care Team Providers Care Account Development Manager Name Role Phone Winston Villatoro Se OD Unavailable [phone] Denise Woodson APRN STONE ROUGHER Unavailable [phone] Denise Woodson APRN STONE ROUGHER Primary Care Provider Usha Simon APRN STONE ROUGHER Unavailable + [phone] Dangelo Salinas MD Unavailable Anastasia Stearns RN Unavailable [phone] Germaine Aleman CHW Unavailable +[phone] Robin Zepeda MD Unavailable Lisa Zambrano MD Unavailable [phone] Raul Hoyos MD Unavailable Joya Lira [facility] Unavailable [phone] Joya Lira [facility] Unavailable Fabi Coates MD Unavailable [phone] Robin Zepeda MD Unavailable [phone] Danna CardenasC Unavailable [phone] Felicita Desai RN Unavailable Unavailab Arthur Rios Unavailable +[phone] Randy Maradiaga DO Unavailable + Tete Wang MD Unavailable [phone] Dahlia Joyce MD Unavailable [phone] Lisa Zambrano MD Unavailable + [phone] Tete Wang MD Unavailable +[phone] Any Joiner MD Unavailable +[phone] Encounter Details Date Type Department Care Team [...] How often do you attend lutheran or zoroastrian serv ices? 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 Not on file Not on file Not on file Not on file Not on file Not on file documented as of this encounter Plan of Treatment Upcoming Encounters Date Type Department Care Team ([facility] st Contact Info) Description 03/16/2025 8:00 AM CDT Virtual [facility] 150 [place] [phone] MylesBindu, OD 909 [place], [place] 4[address] Rubi Johnson, OT [address] 455047 03/26/2025 12:45 PM CDT Therapy Visit [address] [phone] Bindu Bueno, OD 909 [place], [place] 65[address] Rubi Johnson, OT [address] 414527 04/02/2025 9:30 AM CDT Therapy Visit [address] [phone] Randy Maradiaga, DO 909 [place], [place] [address]695 Delicia George, PT 150 [place], [place] 06[address]27 04/06/2025 11:00 AM CDT Virtual Visit [address] [phone] Bindu Bueno, OD 909 [place], [place] 0[address] Rubi Johnson, OT [facility] 150 [place] [address] 04/06/2025 12:30 PM CDT Therapy Visit [facility] [address] [place] [phone] Randy Maradiaga, DO [address] [place] [address] 853195 Delicia George, PT [address] [place], [place] [address] 04/16/2025 11:00 AM CDT [facility] 150 [place] [phone] Bindu Bueno, OD 909 [place] [address] Rubi Johnson, OT [facility] 150 [place] [address] 04/23/2025 12:45 PM CDT [facility] 150 [place] [phone] Bindu Bueno, OD 909 [place] [address] Rubi Johnson, OT [facility] 150 [place] [address] 04/23/2025 2:00 PM CDT Therapy Visit [address] [phone] Randy Maradiaga, DO [address] [place] [address] 880555 Delicia George, PT 150 [place] [address] 04/30/2025 10:15 AM CDT Therapy Visit [address] [phone] Randy Maradiaga, DO [address] [place] [address] 143175 Delicia George, PT 150 [place] [address] 05/04/2025 11:00 AM CDT Virtual Visit [address] [phone] Bindu Bueno, OD 909 [place] [address] Rubi Johnson, OT [address] [address] 05/07/2025 10:15 AM CDT Therapy Visit [address] [phone] Randy Maradiaga, DO [address] [place] [address] 678915 Delicia George, PT [address] [place] [place], [place] [address]37 05/14/2025 10:15 AM CDT Therapy Visit [address] [phone] Randy Maradiaga, [address] [place] [address] Delicia George, PT [address] [place] [place], [place] 5030[address] 05/14/2025 11:00 AM CDT Therapy Visit [address] [phone] Bindu Bueno, OD [address] [place] [address] 738125 Rubi Johnson, [address] [address] 06/01/2025 11:15 AM CDT Appointment [facility] Imaging [address] [facility] [address] [place] [phone] Robin Zepeda MD [address] [place] [address] 030975 06/02/2025 2:20 PM CDT Virtual Visit [facility] [address] 3rd [place] [phone] Robin Zepeda MD [address] [place] [address] 837185 07/01/2025 12:00 PM CDT Virtual Visit [facility] Ira [address] [place] [address] 3rd [place] [address] Santa Menon PAMani [address] [place] [address] 844875 08/03/2025 4:30 PM SOCCER PLAYER Virtual Visit [facility] [address] [address] Any Joiner MD 420 [facility] 276 [place], [place] [address] documented as of this encounter Visit Diagnoses Not on filedocumented in this encounter Additional Health Concerns Infection Onset Date Last Indicated Resolved Time Rule Out COVID-19 09/13/2024 09/13/2024 09/13/2024 12:31 PM SOCCER PLAYER Rule Out COVID-19 11/14/2024 11/14/2024 11/14/2024 8:25 PM SOCCER PLAYER Assessment Noted Time PHQ-9 Depression Total Score: 5 03/17/20 24 9:45 AM CDT documented as of this encounter Care Teams Account Development Manager Relationship Specialty Start Date End Date Winston Villatoro OD [facility] [address] [facility] [address] [place] [address] PCP - Ophthalmology Ophthalmology 02/11/13 Denise Woodson APRN STONE ROUGHER [address] [address] [address] PCP - General Family Practice 09/21/20 Denise Woodson APRN STONE ROUGHER [address] [address] [address] Assigned PCP 07/17/20 Usha Simon APRN STONE ROUGHER [address] [address] Nurse Practitioner Neurological Surgery 01/24/24 Dangelo Salinas MD [address] [place] [address] Neurology 01/27/24 Anastasia Stearns, RN Lead Deputy Sheriff Generalist 02/06/24 12/17/24 Germaine Aleman, W Community Health Worker Primary Care - CC 02/18/2412/17/24 Robin Zepeda MD [address] [address] Assigned Neuroscience Provider 03/08/24 05/07/24 Lisa Zambrano MD [address] [facility] [place] [address] Assigned Heart and Vascular Provider 05/08/24 07/07/24 Raul Hoyos MD [address] [address] Assigned Neuroscience Provider 05/08/24 07/07/24 Joya Lira RPH [address] [place] [address] Pharmacist Pharmacist 05/25/24 Joya Lira RPH [address] [place] [address] Assigned MTM Pharmacist 06/08/24 Fabi Coates MD [address] [place] [address] 75 [place] [address] Genetics, Clinical 06/18/24 Robin Zepeda MD 9 [facility] [place] [address] Assigned Neuroscience Provider 07/08/24 08/07/24 Danna Cardenas PA-C 6405 [place] [address] Assigned Heart and Vascular Provider 07/08/24 12/05/24 Felicita Desai RN Lead Deputy Sheriff Generalist 07/14/24 07/28/24 Arthur Salas, [facility] [address] [place], [place] [address] Assigned Behavioral Health Provider 08/08/24 Randy Maradiaga DO [address] [place] [address] 791955 Assigned Neuroscience Provider 08/08/24 Tete Wang MD 2450 [place] [address] Genetics, Clinical 10/30/24 Dahlia Joyce MD [address] [place] [address] Radiology Neuroradiology 11/17/24 Lisa Zambrano MD 6405 [facility] [address] [place] [address] Assigned Heart and Vascular Provider 12/06/24 Tete Wang MD 2450 [facility] [place], [place] 085234 Assigned Pediatric Specialist Provider 01/06/25 Any Joiner MD [address] [place] [address] 276 [place], [place] 8[address]85 Assigned Pulmonology Provider 02/05/25 documented as of this encounter
--- OUTSIDE RECORDS SUMMARY | 2025-03-09 12:25 | XMS_ITS | Encounter Summary ---
Author Organization [place] Address [address] [place] [address] Care Team Providers Care Large Sheetfed Press Operator Name Role Phone Yung Madrigal MD Unavailable Unavailable Winston Villatoro OD Unavailable [phone] Denise Woodson APRN HOLD WORKER Unavailable [phone] Denise Woodson APRN HOLD WORKER Primary Care Provider Usha Simon APRN HOLD WORKER Unavailable Dangelo [place] MD Unavailable Usha Simon APRN HOLD WORKER Unavailable Anastasia Stearns RN Unavailable [phone] Germaine Aleman CHW Unavailable [phone] Robin Zepeda MD Unavailable [phone] Lisa Zambrano MD Unavailable Raul Hoyos MD Unavailable Joya Lira [facility] Unavailable [phone] Joya Lira RPJoleen Unavailable Fabi Coates MD Unavailable [phone] Robin Zepeda MD Unavailable Danna Cardenas PA-C Unavailable [phone] Felicita Desai RN Unavailable Unavailab Arthur Rios LATHE TURNER Unavailable +[phone] Randy Maradiaga DO Unavailable + Tete Wang MD Unavailable [phone] Dahlia Joyce MD Unavailable [phone] Lisa Zambrano MD Unavailable + [phone] Tete Wang MD Unavailable [phone] Any Joiner MD Unavailable [phone] Reason for Visit * Reason Comments Medication Refill Encounter Details Date Type Department Care Team (Late st Contact Info) Description 01/07/[address] 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 Karla Morales [place] [employer] Core Transformer Assembler * Telephone Encounter - Karla Morales - 01/17/2023 8:59 AM CDT LVM requesting a call back for an appt (physical). One more attempt will be made. Karla Villafanamount Hypercil Core Transformer Assembler * Telephone Encounter - Arianna Lo - 01/10/2023 3:33 PM CDT Sent [employer] message requesting a call back for an appt. Two more attempts will be made. Arianna Lo [place] [employer] Core Transformer Assembler * Telephone Encounter - Leslie Mcclellan, RN [...] 0 0 Leslie Mcclellan RN, BSN [facility] documented in this encounter Plan of Treatment Upcoming Encounters Date Type Department Care Team (Late st Contact Info) Description 03/16/2025 8:00 AM CDT Virtual Visit [facility] Rehabilitation Services [address] [phone] Bindu Bueno, OD [address] [place] [address] Rubi Johnson, OT [facility] 150 [place] [address] 03/26/2025 12:45 PM CDT Therapy Visit [address] [phone] Bindu Bueno, OD 909 [place], [place] 9[address] Rubi Johnson, OT [address] [address] 04/02/2025 9:30 AM CDT Therapy Visit [address] [phone] Randy Maradiaga, DO [address] [place] [address] 330965 Delicia George, PT 150 [place] [address] 04/06/2025 11:00 AM CDT Virtual Visit [address] [phone] Bindu Bueno, OD 909 [place], [place] 314[address] Rubi Johnson, OT [address] [address] 04/06/2025 12:30 PM CDT Therapy Visit [address] [phone] Randy Maradiaga, DO [address] [place] [address] Delicia Georeg, PT 150 [place] [address] 04/16/2025 11:00 AM CDT Therapy Visit [address] [phone] Bindu Bueno, OD 909 [place] [address] Rubi Johnson, OT [address] [address] 04/23/2025 12:45 PM CDT Therapy Visit [address] [phone] Bindu Bueno, OD 909 [place] [address] Rubi Johnson, OT [address] [address] 04/23/2025 2:00 PM CDT Therapy Visit [address] [phone] Randy Maradiaga, DO 909 [place] [address] Delicia George, PT [address] [place] [address] 04/30/2025 10:15 AM CDT Therapy Visit [facility] 150 [place] [phone] Randy Maradiaga, DO [address] [place] [address] Delicia George, PT 150 [facility] [place] [address] 05/04/2025 11:00 AM CDT Virtual Visit [address] [phone] Bindu Bueno, OD [address] [place] [address] Rubi Johnson, [address] 181857 05/07/2025 10:15 AM CDT Therapy Visit [address] [phone] Randy Maradiaga, DO [address] [place] [address] Delicia George, PT 150 [place] [address] 05/14/2025 10:15 AM CDT Therapy Visit [address] [phone] Randy Maradiaga, DO [address] [place] [address] Delicia George, PT 150 [facility] [place] [address] 05/14/2025 11:00 AM CDT Therapy Visit [facility] Services [address] [phone] BuenoBindu flores, OD 909 [place] [address] Rubi Johnson, OT [facility] [address] [address] 06/01/2025 11:15 AM CDT Appointment [facility] Specialty Care Center Imaging [address] [place] [phone] Robin Zepeda MD [address] [place] [address] 411325 06/02/2025 2:20 PM CDT Virtual Visit [facility] Neurosurgery [address] [phone] Robin Zepeda MD [address] [place] [address] 07/01/2025 12:00 PM CDT Virtual Visit [facility] Rehabilitation Clinic [address] [phone] Santa Menon PA-C [address] [place] [address] 798015 08/03/2025 4:30 PM EARLY CHILDHOOD TEACHER Virtual Visit [facility] [address] [phone] Any Joiner MD 420 [facility] 276 [place], [place] 33[address] documented as of this encounter Visit Diagnoses Diagnosis Moderate persistent asthma without complication Unspecified asthma documented in this encounter Additional Health Concerns Infection Onset Date Last Indicated Resolved Time Rule Out COVID-19 09/13/2024 09/13/2024 09/13/2024 12:31 PM EARLY CHILDHOOD TEACHER Rule Out COVID-19 11/14/2024 11/14/2024 11/14/2024 8:25 PM EARLY CHILDHOOD TEACHER Assessment Noted Time PHQ-9 Depression Total Score: 0 06/23/20 21 4:11 PM CDT documented as of this encounter Care Teams Large Sheetfed Press Operator Relationship Specialty Start Date End Date Yung Madrigal MD RETIRED PCP - Orthopaedics Orthopedics 08/26/12 01/20/24 Winston Villatoro OD [facility] 701 [facility] 95 [place] [address] PCP - Ophthalmology Ophthalmology 02/11/13 Denise Woodson APRN HOLD WORKER [address] [place] [address] PCP - General Family Practice 09/21/20 Denise Woodson APRN HOLD WORKER [address] [place] [address] Assigned PCP 07/17/20 Usha Simon APRN HOLD WORKER 909 [id number] [place] [address] Nurse Practitioner Neurological Surgery 01/24/24 Dangelo [place] MD [address] [place] [address] Neurology 01/27/24 Usha Simon APRN HOLD WORKER [address] [address] Assigned Neuroscience Provider 02/06/24 03/07/24 Anastasia Stearns, RN Lead Circular Sawyer Helper 02/06/24 12/17/24 Germaine Aleman, W Community Health Worker Primary Care - CC 02/18/2412/17/24 Robin Zepeda MD [address] [place] [address] Assigned Neuroscience Provider 03/08/24 05/07/24 iLsa Zambrano MD 6405 [facility] [address] [place] [address] Assigned Heart and Vascular Provider 05/08/24 07/07/24 Raul Hoyos MD [address] [place] [address] Assigned Neuroscience Provider 05/08/24 07/07/24 Joya Lira Joleen [address] [place] [address] Pharmacist Pharmacist 05/25/24 Joya Lira RPH [address] [place] [address] Assigned MTM Pharmacist 06/08/24 Fabi Coates MD [address] [place] [address] 75 [place] [address] Genetics, Clinical 06/18/24 Robin Zepeda MD 9 [facility] [place] [id number] [place] [address] Assigned Neuroscience Provider 07/08/24 08/07/24 Danna Cardenas PA-C 6405 [place] [address] Assigned Heart and Vascular Provider 07/08/24 12/05/24 Felicita Desai, GEMA Lead Circular Sawyer Helper 07/14/24 07/28/24 Arthur Salas [facility] [address] [place] [address] Assigned Behavioral Health Provider 08/08/24 Randy Maradiaga DO [address] [place] [address] 327665 Assigned Neuroscience Provider 08/08/24 Tete Wang MD 2450 [place] [address] Genetics, Clinical 10/30/24 Dahlia Joyce MD [address] [place] [address] Radiology Neuroradiology 11/17/24 Lisa Zambrano MD 6405 [facility] [address] [place] [address] Assigned Heart and Vascular Provider 12/06/24 Tete Wang MD 2450 [place] [address] Assigned Pediatric Specialist Provider 01/06/25 Any Joiner MD 420 [facility] 276 [place], [place] 5747[address] Assigned Pulmonology Provider 02/05/25 documented as of this encounter
--- OUTSIDE RECORDS SUMMARY | 2025-03-09 12:26 | XMS_ITS | Encounter Summary ---
Author Organization [place] Address [address] [place] [address] Care Team Providers Care Entry Level Project Coordinator Name Role Phone Winston Villatoro Se OD Unavailable [phone] Denise Woodson APRN LABORER DEMOLITION Unavailable [phone] Denise Woodson APRN LABORER DEMOLITION Primary Care Provider Usha Simon APRN LABORER DEMOLITION Unavailable + [phone] Dangelo [place] MD Unavailable Anastasia Stearns RN Unavailable [phone] Germaine Aleman CHW Unavailable Joya Lira RP Unavailable Joya Lira [facility] Unavailable [phone] Fabi Coates MD Unavailable [phone] Robin Zepeda MD Unavailable [phone] Danna Cardenas PA-C Unavailable [phone] Felicita Desai RN Unavailable Unavailab Arthur Rios Unavailable [phone] Randy Maradiaga DO Unavailable + Tete Wang MD Unavailable [phone] Dahlia Joyce MD Unavailable Lisa Zambrano MD Unavailable [phone] Tete Wang MD Unavailable [phone] Any Joiner MD Unavailable [phone] Encounter Details Date Type Department Care Team (Late st Contact Info) Description 07/18/2024 MyC Medical Advice [facility] [address] [place] [address] Denise Woodson APRN [facility] [address] [place] [address] Social History Tobacco Use Types [...] How often do you attend religious or mu-ism serv ices? 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 Qing Copeland Lead Manager Cosm[facility] documented in this encounter Plan of Treatment Upcoming Encounters Date Type Department Care Team (Late st Contact Info) Description 03/16/2025 8:00 AM CDT Virtual Visit [address] [phone] Bindu Bueno, OD 909 [place], [place] 495065 Rubi Johnson, OT [address] [address] 03/26/2025 12:45 PM CDT Therapy Visit [address] [phone] Bindu Bueno, OD 909 [place] [address] Rubi Johnson, OT [address] [address] 04/02/2025 9:30 AM CDT Therapy Visit [address] [phone] Randy Maradiaga, DO 909 [place] [address] Delicia George, PT [address] [place] [address] 04/06/2025 11:00 AM CDT [facility] 150 [place] [phone] Bindu Bueno, OD 909 [place] [address] Rubi Johnson, OT [address] 767777 04/06/2025 12:30 PM CDT Therapy Visit [address] [phone] Randy Maradiaga, DO 909 [place] [address] Delicia George, PT [address] [place] [address] 04/16/2025 11:00 AM CDT Therapy Visit [address] [phone] Bindu Bueno, OD 909 [place] [address] Rubi Johnson, OT [address] [address] 04/23/2025 12:45 PM CDT Therapy Visit [address] [phone] Bindu Bueno, OD 909 [place] [address] Rubi Johnson, OT [facility] 150 [place] [address] 04/23/2025 2:00 PM CDT Therapy Visit [facility] 150 [place] [phone] Randy Maradiaga, DO [address] [place] [address] Delicia George, PT 150 [facility] [place] [address] 04/30/2025 10:15 AM CDT Therapy Visit [address] [phone] Randy Maradiaga, DO [address] [place] [address] Delicia George, PT 150 [facility] [place] [address] 05/04/2025 11:00 AM CDT Virtual Visit [facility] 150 [place] [phone] Bindu Bueno, OD 909 [place] [address] Rubi Johnson, OT [facility] [address] [address] 05/07/2025 10:15 AM CDT Therapy Visit [address] [phone] Randy Maradiaga, DO 909 [place] [address] Delicia George, PT 150 [facility] [place] [address] 05/14/2025 10:15 AM CDT Therapy Visit [address] [phone] Randy Maradiaga, DO 909 [place] [address] Delicia George, PT 150 [facility] [place] [address] 05/14/2025 11:00 AM CDT Therapy Visit [address] [phone] Bindu Bueno, OD 909 [place] [address] Rubi Johnson, [address] [address] 06/01/2025 11:15 AM CDT Appointment [facility] Specialty Care Center Imaging [address] [place] [phone] Robin Zepeda MD 909 [facility] OT1891OT [place] [address] 06/02/2025 2:20 PM CDT Virtual Visit [facility] Neurosurgery Clinic [address] 3rd [place] [phone] Robin Zepeda MD [address] [place] [address] IA2120NN [place], [place] [address]25 07/01/2025 12:00 PM CDT Virtual Visit [facility] Physical Medicine and Rehabilitation Clinic [address] [phone] Santa Menon, PA-C [address] [place] [address] [phone] 08/03/2025 4:30 PM INSURANCE FOLLOW UP SPECIALIST Virtual Visit [facility] [address] [phone] Any Joiner MD 420 [facility] 276 [place], [place] 903305 documented as of this encounter Visit Diagnoses Not on filedocumented in this encounter Additional Health Concerns Infection Onset Date Last Indicated Resolved Time Rule Out COVID-19 09/13/2024 09/13/2024 09/13/2024 12:31 PM INSURANCE FOLLOW UP SPECIALIST Rule Out COVID-19 11/14/2024 11/14/2024 11/14/2024 8:25 PM INSURANCE FOLLOW UP SPECIALIST Assessment Noted Time PHQ-9 Depression Total Score: 14 024 11:46 AM CDT documented as of this encounter Care Teams Entry Level Project Coordinator Relationship Specialty Start Date End Date Wintson Villatoro OD [facility] [place] [address] [place] [address] PCP - Ophthalmology Ophthalmology 02/11/13 Denise Woodson APRN LABORER DEMOLITION [address] [place] [place] [address] PCP - General Family Practice 09/21/20 Denise Woodson APRN LABORER DEMOLITION [address] [place] [address] Assigned PCP 07/17/20 Usha Simon APRN LABORER DEMOLITION [address] [place] [address] Nurse Practitioner Neurological Surgery 01/24/24 Dangelo [place] MD [address] [place] [address] Neurology 01/27/24 Anastasia Stearns, RN Lead German Professor 02/06/24 12/17/24 Germaine Aleman, W Community Health Worker Primary Care - CC 02/18/2412/17/24 Joya Lira RPH [address] [place] [address] Pharmacist Pharmacist 05/25/24 Joya Lira RPH [address] [place] [address] Assigned MTM Pharmacist 06/08/24 Fabi Coates MD [address] [place] [address] 75 [place] [address] Genetics, Clinical 06/18/24 Robin Zepeda MD [address] [address] Assigned Neuroscience Provider 07/08/24 08/07/24 Danna Cardenas PA-C 6405 [place] [address] Assigned Heart and Vascular Provider 07/08/24 12/05/24 Felicita Desai, RN Lead German Professor 07/14/24 07/28/24 Arthur Salas [facility] [address] [place] [address] Assigned Behavioral Health Provider 08/08/24 Randy Maradiaga DO 9 [place] [address] Assigned Neuroscience Provider 08/08/24 Tete Wang MD [address] [place] [address] Genetics, Clinical 10/30/24 Dahlia Joyce MD [address] [place] [address] Radiology Neuroradiology 11/17/24 Lisa Zambrano MD 6405 [facility] [address] [place] [address] Assigned Heart and Vascular Provider 12/06/24 Tete Wang MD [facility]0 [place] [address] Assigned Pediatric Specialist Provider 01/06/25 Any Joiner MD [address] [place] [address] 276 [place] [address] Assigned Pulmonology Provider 02/05/25 documented as of this encounter
--- OUTSIDE RECORDS SUMMARY | 2025-03-09 12:26 | XMS_ITS | Encounter Summary ---
Author Organization [place] Address [address] [place] [address] Care Team Providers Care Manager Transfer Name Role Phone ShaunaTarikle Se OD Unavailable [phone] Denise Woodson APRN LIBRARIAN SPECIAL COLLECTIONS Unavailable [phone] Denise Woodson APRN LIBRARIAN SPECIAL COLLECTIONS Primary Care Provider Usha Simon APRN LIBRARIAN SPECIAL COLLECTIONS Unavailable + [phone] Dangelo [place] MD Unavailable Joya Lira [facility] Unavailable [phone] Joya Lira [facility] Unavailable [phone] Fabi Coates MD Unavailable [phone] SinyigayaArthur SHIRRING TENDER Unavailable [phone] Randy Maradiaga DO Unavailable + Tete Wang MD Unavailable [phone] Dahlia Joyce MD Unavailable [phone] Lisa Zambrano MD Unavailable + [phone] Tete Wang MD Unavailable [phone] Any Joiner MD Unavailable [phone] Encounter Details Date Type Department Care Team (Late st Contact Info) Description 02/03/2025 [facility] [address] [place] [phone] WalthamDelicia bernal, PT 150 [place], [place] [address]687 Social History Tobacco Use Types Packs/Day Years [...] re latives? 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 Services [facility] 150 [place] [phone] Bidnu Bueno, OD [address] [place], [place] [address] Rubi Johnson, OT [facility] 150 [place] [address] 03/26/2025 12:45 PM CDT Therapy Visit [facility] 150 [place] [phone] BuenoBindu, OD 909 [place], [place] 300665 Rubi Johnson, OT [address] [address] 04/02/2025 9:30 AM CDT Therapy Visit [address] [phone] Randy Maradiaga, DO 909 [place] [address] Delicia George, PT 150 [facility] [place] 5340[address] 04/06/2025 11:00 AM CDT Virtual Visit [address] [phone] Bindu Bueno, OD 909 [place] [address] Rubi Johnson, OT [address] [address] 04/06/2025 12:30 PM CDT Therapy Visit [address] [phone] Randy Maradiaga, DO 909 [place] [address] Delicia George, PT [address] [place] [address] 04/16/2025 11:00 AM CDT Therapy Visit [address] [phone] Bindu Bueno, OD 909 [place], [place] 604[address] Rubi Johnson, OT [address] [address] 04/23/2025 12:45 PM CDT Therapy Visit [address] [phone] Bindu Bueno, OD 909 [place] [address] Rubi Johnson, OT [address] [address] 04/23/2025 2:00 PM CDT Therapy Visit [address] [phone] Randy Maradiaga, DO [address] [place] [address] Delicia George, PT [address] [place] [address] 04/30/2025 10:15 AM CDT Therapy Visit [address] [phone] Randy Maradiaga, DO [address] [place] [address] Delicia George, PT 150 [place], [place] 310407 05/04/2025 11:00 AM CDT Virtual Visit [address] [phone] Bindu Bueno, OD 909 [place] [address] Rubi Johnson, [address] [address] 05/07/2025 10:15 AM CDT Therapy Visit [address] [phone] Randy Maradiaga, DO [address] [place] [address] Delicia George, PT 150 [place] [address] 05/14/2025 10:15 AM CDT Therapy Visit [address] [phone] Randy Maradiaga, DO [address] [place] [address] Delicia George, PT 150 [place] [address] 05/14/2025 11:00 AM CDT Therapy Visit [facility] Rehabilitation Services [address] [phone] Bindu Bueno, OD 909 [place], [place] [address] Rubi Johnson, OT [address] 893517 06/01/2025 11:15 AM CDT Appointment [facility] Special[facility] Care Center Imaging [address] [place] [place] [phone] Robin Zepeda MD [address] [place] [address] 935155 06/02/2025 2:20 PM CDT Virtual Visit [facility] Neurosurgery [address] [phone] Robin Zepeda MD [address] [place] [address] 851515 07/01/2025 12:00 PM CDT Virtual Visit [facility] Physical Medicine and Rehabilitation [address] [phone] Santa Menon PA-C [address] [place] [address] 578985 08/03/2025 4:30 PM WET ROLLER Virtual Visit [facility] [address] [phone] Any Joiner MD 420 [facility] 276 [place] [address] documented as of this encounter Visit Diagnoses Not on filedocumented in this encounter Additional Health Concerns Assessment Noted Time PHQ-9 Depression Total Score: 11 025 11:39 AM CDT documented as of this encounter Care Teams Manager Transfer Relationship Specialty Start Date End Date Winston Villatoro OD [facility] [place] [address] [place] [address] PCP - Ophthalmology Ophthalmology 02/11/13 Denise Woodson APRN LIBRARIAN SPECIAL COLLECTIONS [address] [place] [address] PCP - General Family Practice 09/21/20 Denise Woodson APRN LIBRARIAN SPECIAL COLLECTIONS [address] [place] [address] Assigned PCP 07/17/20 Usha Simon APRN LIBRARIAN SPECIAL COLLECTIONS [address] [facility] [place] [address] Nurse Practitioner Neurological Surgery 01/24/24 Dangelo [place] MD [address] [place], [place] [id number] Neurology 01/27/24 Joya Lira RPH [address] [address] Pharmacist Pharmacist 05/25/24 Joya Lira RPH [address] [place] [address] Assigned MTM Pharmacist 06/08/24 Fabi Coates MD 420 [facility] 75 [place] [address] Genetics, Clinical 06/18/24 Arthur Salas, [facility] [address] [address] Assigned Behavioral Health Provider 08/08/24 Randy Maradiaga DO 909 [place] [address] Assigned Neuroscience Provider 08/08/24 Tete Wang MD [address] [place] [address] 871344 Genetics, Clinical 10/30/24 Dahlia Joyce MD 909 [place], [place] 8386[address] Radiology Neuroradiology 11/17/24 [place] [address] [place], [place] [address] [place] [address] Assigned Heart and Vascular Provider 12/06/24 Tete Wang MD [address] [place] [address] 331034 Assigned Pediatric Specialist Provider 01/06/25 Any Joiner MD 420 [facility] 276 [place] [address] Assigned Pulmonology Provider 02/05/25 documented as of this encounter
--- OUTSIDE RECORDS SUMMARY | 2025-03-09 12:26 | XMS_ITS | Encounter Summary ---
Author Organization [facility] Address [address] [place] [address] Care Team Providers Care Personal Lines Account Manager Name Role Phone Winston Villatoro OD Unavailable [phone] Denise Woodson APRN SURVEY CAD TECHNICIAN Unavailable [phone] Denise Woodson APRN SURVEY CAD TECHNICIAN Primary Care Provider Usha Simon APRN SURVEY CAD TECHNICIAN Unavailable Dangelo Salinas MD Unavailable Anastasia Stearns RN Unavailable Germaine Aleman CHW Unavailable Joya Lira RP Unavailable [phone] Joya Lira [facility] Unavailable [phone] Fabi Coates MD Unavailable [phone] Robin Zepeda MD Unavailable Danna Cardenas PA-C Unavailable [phone] Arthur SalasSW Unavailable [phone] Randy Maradiaga DO Unavailable + Tete Wang MD Unavailable [phone] Dahlia Joyce MD Unavailable [phone] Lisa Zambrano MD Unavailable Tete Wang MD Unavailable Any Joiner MD Unavailable [phone] Reason for Visit * Reason Onset Date Comments Forms 07/29/2024 Patient/[employer] - Return to work/ Workability Form Encounter Details Date Type Department Care Team (Late st Contact Info) Description 07/29/2024 MyC Medical Advice [facility] [address] [place] [address] [facility] [address] [place] [address] Forms (Patient/[employer] - [...] How often do you attend temple or rastafarian serv ices? 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 Patient/[facility] Where did/will the form come from? form was sent via [employer] When is form/letter needed by: 08/04/24 How would you like the form/letter returned: Fax to [facility] Employee [facility] (JOSE LUIS on file - 05/21/24),then send form to Pt via [employer] Patient Notified form requests are processed in 5-7 business days:Yes Could we send this information to you in [employer] or would you prefer to receive a phone call?: Patient would prefer a phone call Okay to leave a detailed message?: N/A at Cell number on file: Telephone Information: INSTALLER documented in this encounter Plan of Treatment Upcoming Encounters Date Type Department Care Team (Late st Contact Info) Description 03/16/2025 8:00 AM CDT Virtual Visit [address] [phone] Bindu Bueno, OD 909 [place] [address] Rubi Johnson, OT VALARIE BALBUENA [address] [id number] 03/26/2025 12:45 PM CDT Therapy Visit [address] [phone] Bindu Bueno, OD 909 [place] [address] Rubi Johnson, OT [facility] 150 [place] [address] 04/02/2025 9:30 AM CDT Therapy Visit [facility] 150 [place] [phone] Randy Maradiaga, DO [address] [place] [address] 292755 Delicia George, PT 150 [facility] [place] [address] 04/06/2025 11:00 AM CDT Virtual Visit [facility] 150 [place] [phone] Bindu Bueno, OD 909 [place] [address] Rubi Johnson, OT [address] [address] 04/06/2025 12:30 PM CDT Therapy Visit [facility] 150 [place] [phone] Randy Maradiaga, DO [address] [place] [address] Delicia George, PT 150 [facility] [place], [place] 0[address]77 04/16/2025 11:00 AM CDT Therapy Visit [address] [phone] Bindu Bueno, OD 909 [place] [address] Rubi Johnson, OT [address] [address] 04/23/2025 12:45 PM CDT Therapy Visit [address] [phone] Bindu Bueno, OD 909 [place] [address] Rubi Johnson, OT [address] [address] 04/23/2025 2:00 PM CDT Therapy Visit [address] [phone] Randy Maradiaga, DO [address] [place] [address] 986365 Delicia George, PT 150 [place] [address] 04/30/2025 10:15 AM CDT Therapy Visit [address] [phone] Randy Maradiaga, DO [address] [place] [address] Delicia George, PT 150 [facility] [place] [address] 05/04/2025 11:00 AM CDT Virtual Visit [address] [phone] Bindu Bueno, OD 909 [place] [address] Rubi Johnson, OT [address] [address] 05/07/2025 10:15 AM CDT Therapy Visit [address] [phone] Randy Maradiaga, DO [address] [place] [address] Delicia George, PT 150 [place] [address] 05/14/2025 10:15 AM CDT Therapy Visit [address] [phone] Randy Maradiaga, DO [address] [place] [address] Delicia George, PT 150 [place] [address] 05/14/2025 11:00 AM CDT Therapy Visit [address] [phone] Bindu Bueno, OD 909 [place] [address] Rubi Johnson, OT [address] [address] 06/01/2025 11:15 AM CDT Appointment [facility] Imaging [address] [place] [phone] Robin Zepeda MD [address] [place] [address] 590175 06/02/2025 2:20 PM CDT Virtual Visit [facility] [address] [phone] Robin Zepeda MD [address] [place] [address] 414505 07/01/2025 12:00 PM CDT Virtual Visit [facility] [address] [phone] Santa Menon, PA-C [address] [place] [address] 930665 08/03/2025 4:30 PM SASH INSTALLER Virtual Visit [facility] [address] [phone] Any Joiner MD [address] [place] [address] 349945 documented as of this encounter Visit Diagnoses Not on filedocumented in this encounter Additional Health Concerns Infection Onset Date Last Indicated Resolved Time Rule Out COVID-19 09/13/2024 09/13/2024 09/13/2024 12:31 PM SASH INSTALLER Rule Out COVID-19 11/14/2024 11/14/2024 11/14/2024 8:25 PM SASH INSTALLER Assessment Noted Time PHQ-9 Depression Total Score: 14 024 11:46 AM CDT documented as of this encounter Care Teams Personal Lines Account Manager Relationship Specialty Start Date End Date Winston Villatoro OD [facility] [place] [address] [place] [address] PCP - Ophthalmology Ophthalmology 02/11/13 Denise Woodson APRN SURVEY CAD TECHNICIAN [address] [address] [place], [place] [id number] PCP - General Family Practice 09/21/20 Denise Woodson APRN SURVEY CAD TECHNICIAN [address] [address] [place], [place] 3637268 Assigned PCP 07/17/20 Usha Simon APRN SURVEY CAD TECHNICIAN 909 [facility]121[place], [place] [address] Nurse Practitioner Neurological Surgery 01/24/24 Dangelo Salinas MD [address] [place], [place] [id number] Neurology 01/27/24 Anastasia Stearns, RN Lead [employer] 02/06/24 12/17/24 Germaine Aleman, CHW Community Health Worker Primary Care - CC 02/18/2412/17/24 Joya Lira RPH [address] [address] Pharmacist Pharmacist 05/25/24 Joya Lira [facility] [address] [place] [address] Assigned MTM Pharmacist 06/08/24 Fabi Coates MD [address] [place] [address] 75 [place] [address] Genetics, Clinical 06/18/24 Robin Zepeda MD [address] [place] [address] [address] Assigned Neuroscience Provider 07/08/24 08/07/24 Danna Cardenas PA-C [facility]5 [place] [address] Assigned Heart and Vascular Provider 07/08/24 12/05/24 Arthur Salas [facility] [address] [place] [address] Assigned Behavioral Health Provider 08/08/24 Randy Maradiaga DO [address] [place] [address] Assigned Neuroscience Provider 08/08/24 Tete Wang MD 2450 [place], [place] 549884 Genetics, Clinical 10/30/24 Dahlia Joyce MD [address] [place] [address] 417605 Radiology Neuroradiology 11/17/24 Lisa Zambrano MD 6405 [facility] [address] [place] [address] Assigned Heart and Vascular Provider 12/06/24 Ttee Wang MD [address] [place] [place] [address] 088664 Assigned Pediatric Specialist Provider 01/06/25 Any Joiner MD [address] [place] [address] Assigned Pulmonology Provider 02/05/25 documented as of this encounter
--- OUTSIDE RECORDS SUMMARY | 2025-03-09 12:26 | XMS_ITS | Encounter Summary ---
Author Organization [facility] Address [address] [place] [address] Care Team Providers Care Metal Punch Press Operator Name Role Phone Winston Villatoro OD Unavailable [phone] Denise Woodson APRN GRE TUTOR Unavailable [phone] Denise Woodson APRN GRE TUTOR Primary Care Provider Usha Simon APRN GRE TUTOR Unavailable Dangelo Salinas MD Unavailable Anastasia Stearns RN Unavailable Germaine Aleman CHW Unavailable [phone] Joya Lira RP Unavailable [phone] Joya Lira [facility] Unavailable Fabi Coates MD Unavailable [phone] Robin Zepeda MD Unavailable [phone] Danna Cardenas PA-C Unavailable [phone] Arthur SalasSW Unavailable [phone] Randy Maradiaga DO Unavailable + Tete Wang MD Unavailable [phone] Dahlia Joyce MD Unavailable [phone] Lisa Zambrano MD Unavailable Tete Wang MD Unavailable [phone] Any Joiner MD Unavailable [phone] Encounter Details Date Type Department Care Team (Late st Contact Info) Description 08/01/2024 MyC Medical Advice [facility] [address]rd [place] [address] Randy Maradiaga, [address] [place] [address] Social History Tobacco Use Types Packs/Day [...] How often do you attend islam or mormon serv ices? 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 Not on file Not on file Not on file Not on file Not on file Not on file documented as of this encounter Plan of Treatment Upcoming Encounters Date Type Department Care Team (Late st Contact Info) Description 03/16/2025 8:00 AM CDT Virtual Visit [facility] [address] [phone] Bindu Bueno, OD 909 [place], [place] 850875 Rubi Johnson, OT [address] 529167 03/26/2025 12:45 PM CDT Therapy Visit [address] [phone] Bindu Bueno, OD 909 [place] [address] Rubi Johnson, OT [address] 544227 04/02/2025 9:30 AM CDT Therapy Visit [address] [phone] Randy Maradiaga, DO 909 [place] [address] Delicia George, PT 150 [place] [address] 04/06/2025 11:00 AM CDT Virtual Visit [address] [phone] Bindu Bueno, OD 909 [place], [place] 577005 Rubi Johnson, OT [facility] [address] [place] [address] 04/06/2025 12:30 PM CDT Therapy Visit [facility] 150 [place] [phone] Randy Maradiaga, DO [address] [place] [address] 999045 Delicia George, PT 150 [facility] [place] 641617 04/16/2025 11:00 AM CDT Therapy Visit [address] [phone] Bindu Bueno, OD 909 [place], [place] 579635 Rubi Johnson, OT [facility] 150 [place] [address] 04/23/2025 12:45 PM CDT Therapy Visit [facility] 150 [place] [phone] Bindu Bueno, OD 909 [place] [address] Rubi Johnson, OT [facility] 150 [place] [address] 04/23/2025 2:00 PM CDT Therapy Visit [address] [phone] Randy Maradiaga, DO 909 [place] [address] Delicia George, PT 150 [place] [address] 04/30/2025 10:15 AM CDT Therapy Visit [address] [phone] Randy Maradiaga, DO [address] [place] [address] 036855 Delicia George, PT 150 [place] [address] 05/04/2025 11:00 AM CDT Virtual Visit [address] [phone] Bindu Bueno, OD 909 [place] [address] Rubi Johnson, [address] [address] 05/07/2025 10:15 AM CDT Therapy Visit [address] [phone] Randy Maardiaga, DO [address] [place] [address] 334905 Delicia George, PT 150 [place] 0[address]337 05/14/2025 10:15 AM CDT Therapy Visit [address] [phone] Randy Maradiaga DO [address] [place] [address] 711915 Delicia George, PT 150 [place] [address] 05/14/2025 11:00 AM CDT Therapy Visit [address] [phone] Bindu Bueno, OD [address] [place] [address] 007925 Rubi Johnson, [address] [address] 06/01/2025 11:15 AM CDT Appointment [facility] Imaging [address] [place] [phone] Robin Zepeda MD [address] [place] [address] 382835 06/02/2025 2:20 PM CDT Virtual Visit [facility] [address] 3rd [place] [phone] Robin Zepeda MD [address] [place] [address] 308515 07/01/2025 12:00 PM CDT Virtual Visit [facility] [place] [address] [place] [address] 3rd [place] [address] Santa Menon PA-C [address] [place] [address] 336745 08/03/2025 4:30 PM SUPPORT TEAM ASSOC Virtual Visit [facility] [address] [phone] Any Joiner MD 420 [facility] 276 [place] [address] documented as of this encounter Visit Diagnoses Not on filedocumented in this encounter Additional Health Concerns Infection Onset Date Last Indicated Resolved Time Rule Out COVID-19 09/13/2024 09/13/2024 09/13/2024 12:31 PM SUPPORT TEAM ASSOC Rule Out COVID-19 11/14/2024 11/14/2024 11/14/2024 8:25 PM SUPPORT TEAM ASSOC Assessment Noted Time PHQ-9 Depression Total Score: 14 024 11:46 AM CDT documented as of this encounter Care Teams Metal Punch Press Operator Relationship Specialty Start Date End Date Winston Villatoro OD [facility] 701 [facility] [address] [place] [address] PCP - Ophthalmology Ophthalmology 02/11/13 Denise Woodson APRN GRE TUTOR [address] [address] [address] PCP - General Family Practice 09/21/20 Denise Woodson APRN GRE TUTOR [address] [address] [address] Assigned PCP 07/17/20 Usha Simon APRN GRE TUTOR [address] [address] Nurse Practitioner Neurological Surgery 01/24/24 Dangelo Salinas MD [address] [place] [address] Neurology 01/27/24 Anastasia Stearns, RN Lead Pull Socket Assembler 02/06/24 12/17/24 Germaine Aleman, W Community Health Worker Primary Care - CC 02/18/2412/17/24 Joya Lira [facility] [address] [place] [address] Pharmacist Pharmacist 05/25/24 Joya Lira [facility] [address] [place] [address] Assigned MTM Pharmacist 06/08/24 Fabi Coates MD [address] [place] [address] 75 [place] [address] Genetics, Clinical 06/18/24 Robin Zepeda MD [address] [address] Assigned Neuroscience Provider 07/08/24 08/07/24 Danna Cardenas PA-C 6405 [place] [address] Assigned Heart and Vascular Provider 07/08/24 12/05/24 OlayinkaanselmoledyLorrieabilio, [facility] [address] [place] [address] Assigned Behavioral Health Provider 08/08/24 Randy Maradiaga DO 909 [place], [place] 814525 Assigned Neuroscience Provider 08/08/24 Tete Wang MD [address] [place] [address] 086634 Genetics, Clinical 10/30/24 Dahlia Joyce MD [address] [place] [address] 937855 Radiology Neuroradiology 11/17/24 Lisa Zambrano MD 6405 [facility] [address] [place], [place] 604755 Assigned Heart and Vascular Provider 12/06/24 Tete Wang MD [address] [place] [address] 737034 Assigned Pediatric Specialist Provider 01/06/25 Any Joiner MD [address] [place] [address] 579435 Assigned Pulmonology Provider 02/05/25 documented as of this encounter
--- OUTSIDE RECORDS SUMMARY | 2025-03-09 12:26 | XMS_ITS | Encounter Summary ---
Author Organization [place] Address [address] [place] [address] Care Team Providers Care Cost Estimating Manager Name Role Phone Winston Villatoro OD Unavailable [phone] Denise Woodson APRN PIECE MEAT TRIMMER Unavailable [phone] Denise Woodson APRN PIECE MEAT TRIMMER Primary Care Provider Usha Simon APRN PIECE MEAT TRIMMER Unavailable [phone] Dangelo Salinas MD Unavailable Joay Lira [facility] Unavailable [phone] Joya Lira [facility] Unavailable [phone] Fabi Coates MD Unavailable [phone] Sinyigaya, Arthur ELECTRONIC DESIGN ENGINEER Unavailable [phone] Randy Maradiaga DO Unavailable + Tete Wang MD Unavailable [phone] Dahlia Joyce MD Unavailable [phone] Lisa Zambrano MD Unavailable + [phone] Tete Wang MD Unavailable [phone] Any Joiner MD Unavailable [phone] Encounter Details Date Type Department Care Team (Latest Contact Info) Description 02/09/2025 Travel Social History Tobacco Use Types Packs/Day [...] Answer Date Recorded PHQ-2 Score 3 01/25/2025 [facility] [...] in an overnight fci, or couch-surfing.) Yes 01/22/2025 Are you worried [...] file Legal Sex Female 4:05 AM MOTOR SCOOTER MECHANIC Gender Identity Not on file Sexual [...] 03/16/2025 8:00 AM CDT Virtual Visit M [address] [phone] Bindu Bueno, OD 909 [place] [address] Rubi Johnson, OT VALARIE BALBUENA [address] 106[address] 03/26/2025 12:45 PM CDT Therapy Visit M [address] [phone] Bindu Bueno, OD 909 [place], [place] 370745 Rubi Johnson, OT [facility] 150 [place] [address] 04/02/2025 9:30 AM CDT Therapy Visit [facility] 150 [place] [phone] Randy Maradiaga, DO [address] [place] [address] 544595 Delicia George, PT [address] [place] [place], [place] 442367 04/06/2025 11:00 AM CDT Virtual Visit [facility] 150 [place] [phone] Bindu Bueno, OD 909 [place] [address] Rubi Johnson, OT [facility] 150 [place] [address] 04/06/2025 12:30 PM CDT Therapy Visit [facility] 150 [place] [phone] Randy Maradiaga, DO [address] [place] [address] Delicia George, PT [address] [place] [place], [place] 356857 04/16/2025 11:00 AM CDT Therapy Visit [address] [phone] Bindu Bueno, OD 909 [place] [address] Rubi Johnson, OT [address] [address] 04/23/2025 12:45 PM CDT Therapy Visit [address] [phone] Bindu Bueno, OD 909 [place] [address] Rubi Johnson, OT [address] [address] 04/23/2025 2:00 PM CDT Therapy Visit [address] [phone] Randy Maradiaga, DO [address] [place] [address] Delicia George, PT 150 [place] [address] 04/30/2025 10:15 AM CDT Therapy Visit [address] [phone] Randy Maradiaga, DO [address] [place] [address] Delicia George, PT 150 [facility] [place] [address] 05/04/2025 11:00 AM CDT Virtual Visit [address] [phone] Bindu Bueno, OD 909 [place] [address] Rubi Johnson, OT [address] [address] 05/07/2025 10:15 AM CDT Therapy Visit [address] [phone] Randy Maradiaga, DO [address] [place] [address] Delicia George, PT 150 [facility] [place] [place] [address] 05/14/2025 10:15 AM CDT Therapy Visit [address] [phone] Randy Maradiaga, DO [address] [place] [address] Delicia George, PT 150 [facility] [place] [place] [address] 05/14/2025 11:00 AM CDT Therapy Visit [address] [phone] Bindu Bueno, OD 909 [place] [address] Rubi Johnson, OT [facility] 150 [place] [address] 06/01/2025 11:15 AM CDT Appointment [facility] Imaging [address] [place] [address] [place] [address] Robin Zepeda MD [address] [place] [address] 371815 06/02/2025 2:20 PM CDT Virtual Visit [facility] [address] [phone] Robin Zepeda MD [address] [place] [address] 07/01/2025 12:00 PM CDT Virtual Visit [facility] Rehabilitation [facility] [address] [phone] Santa Menon, PA-C [address] [place] [address] 537675 08/03/2025 4:30 PM MOTOR SCOOTER MECHANIC Virtual Visit [facility] [address] [phone] Any Joiner MD [address] [place] [address] 556085 documented as of this encounter Visit Diagnoses Not on filedocumented in this encounter Additional Health Concerns Assessment Noted Time PHQ-9 Depression Total Score: 11 025 11:39 AM CDT documented as of this encounter Care Teams Cost Estimating Manager Relationship Specialty Start Date End Date Winston Villatoro OD [facility] [place] [address] [place] [address] PCP - Ophthalmology Ophthalmology 02/11/13 Denise Woodson APRN PIECE MEAT TRIMMER [address] [place] [address] PCP - General Family Practice 09/21/20 Denise Woodson APRN PIECE MEAT TRIMMER [address] [place] [place] [address] Assigned PCP 07/17/20 Usha Simon APRN PIECE MEAT TRIMMER [address] [place] [address], [place] [address] Nurse Practitioner Neurological Surgery 01/24/24 Dangelo Salinas MD [address] [place] [address] Neurology 01/27/24 Joya Lira RPH [address] [place] [address] Pharmacist Pharmacist 05/25/24 Joya Lira RPH [address] [place] [address] Assigned MTM Pharmacist 06/08/24 Fabi Coates MD [address] [place] [address] 75 [place] [address] Genetics, Clinical 06/18/24 Arthur Salas, [facility] [address] [place] [address] Assigned Behavioral Health Provider 08/08/24 Randy Maradiaga DO 909 [place], [place] 137045 Assigned Neuroscience Provider 08/08/24 Tete Wang MD [address] [place] [address] 798054 Genetics, Clinical 10/30/24 Dahlia Joyce MD [address] [place] [address] 782585 Radiology Neuroradiology 11/17/24 Lisa Zambrano MD 6405 [facility] [address] [place], [place] 321535 Assigned Heart and Vascular Provider 12/06/24 Tete Wang MD [address] [place] [address] 494224 Assigned Pediatric Specialist Provider 01/06/25 Any Joiner MD [address] [place] [address] 276 [place], [place] 710695 Assigned Pulmonology Provider 02/05/25 documented as of this encounter
--- OUTSIDE RECORDS SUMMARY | 2025-03-09 12:26 | XMS_ITS | Encounter Summary ---
Author Organization [facility] Address [address] [place] [address] Care Team Providers Care Director Chemistry Name Role Phone ShaunaTarikle Se OD Unavailable [phone] Denise Woodson APRN MOTORCYCLE ASSEMBLER Unavailable [phone] Denise Woodson APRN MOTORCYCLE ASSEMBLER Primary Care Provider Usha Simon APRN MOTORCYCLE ASSEMBLER Unavailable + [phone] Dangelo Salinas MD Unavailable Joya Lira RP Unavailable [phone] Joya Lira [facility] Unavailable +[phone] Fabi Coates MD Unavailable [phone] Sinyigaya, Specmadi INSTRUCTOR OF SOCIOLOGY Unavailable +[phone] Randy Maradiaga DO Unavailable + Tete Wang MD Unavailable +[phone] Dahlia Joyce MD Unavailable +[phone] Lisa Zambrano MD Unavailable + [phone] Tete Wang MD Unavailable +[phone] Any Joiner MD Unavailable +[phone] Encounter Details Date Type Department Care Team (Late st Contact Info) Description 02/22/2025 [facility] [place] [phone] Denise Woodson APRN MOTORCYCLE ASSEMBLER [address] [place] [address] Social History Tobacco Use Types [...] re latives? 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 Qing Valentine Lead Tours [facility] documented in this encounter Plan of Treatment Upcoming Encounters Date Type Department Care Team (Late st Contact Info) Description 03/16/2025 8:00 AM CDT [facility] 150 [place] [phone] Bindu Bueno, OD 909 [place], [place] 029155 Rubi Johnson, OT [address] 693017 03/26/2025 12:45 PM CDT Therapy Visit [facility] 150 [place] [phone] Bindu Bueno, OD 909 [place], [place] 049095 Rubi Johnson, OT [address] 944137 04/02/2025 9:30 AM CDT Therapy Visit [address] [phone] Randy Maradiaga, DO 909 [place], [place] 615505 Delicia George, PT 150 [facility] [place] [address] 04/06/2025 11:00 AM CDT Virtual Visit [address] [phone] Bindu Bueno, OD 909 [place], [place] 493235 Rubi Johnson, OT [facility] 150 [place] [address] 04/06/2025 12:30 PM CDT Therapy Visit [facility] 150 [facility] [place] [place] [address]57[address] Randy Maradiaga, DO 909 [place] [address] Delicia George, PT 150 [facility] [place] [address] 04/16/2025 11:00 AM CDT Therapy Visit [address] [phone] Bindu Bueno, OD 9 [place] [address] Rubi oJhnson, OT [facility] [address] 04/23/2025 12:45 PM CDT [facility] [phone] Bindu Bueno, OD 909 [place] [address] Rubi Johnson, OT [facility] 150 [place] [address] 04/23/2025 2:00 PM CDT Therapy [facility] [phone] Randy Maradiaga, DO 909 [place] [address] Delicia George, PT 150 [facility] [place] [address] 04/30/2025 10:15 AM CDT Therapy Visit [address] [phone] Randy Maradiaga, DO [address] [place] [address] Delicia George, PT 150 [place] [address] 05/04/2025 11:00 AM CDT Virtual Visit [address] [phone] Bindu Bueno, OD 909 [place] [address] Rubi Johnson, [address] [address] 05/07/2025 10:15 AM CDT Therapy Visit [address] [phone] Randy Maradiaga, DO [address] [place] [address]235 Delicia George, PT 150 [place] [address] 05/14/2025 10:15 AM CDT Therapy Visit [facility] 150 [place] [phone] Randy Maradiaga, DO [address] [place] [address] Delicia George, PT 150 [place], [place] 851377 05/14/2025 11:00 AM CDT Therapy Visit [address] [phone] Bindu Bueno, OD 909 [place] [address] Rubi Johnson, [address] [address] 06/01/2025 11:15 AM CDT Appointment [facility] Imaging [address] [place] [phone] Robin Zepeda MD [address] [place] [address] 326845 06/02/2025 2:20 PM CDT Virtual Visit [facility] [address] [phone] Robin Zepeda MD [address] [place] [address] 669365 07/01/2025 12:00 PM CDT Virtual Visit [facility] [address] [phone] Santa Menon PA-C 909 [place], [place] 083565 08/03/2025 4:30 PM FOLLOW UP REP Virtual Visit [facility] [address] [phone] Any Joiner MD 420 [facility] 276 [place] [address] documented as of this encounter [...] as of this encounter Care Teams Director Chemistry Relationship Specialty Start Date End Date Winston Villatoro OD [facility] [place] [address] [place] [address] PCP - Ophthalmology Ophthalmology 02/11/13 Denise Woodson APRN MOTORCYCLE ASSEMBLER [address] [address] [address] PCP - General Family Practice 09/21/20 Denise Woodson APRN MOTORCYCLE ASSEMBLER [address] [address] [address] Assigned PCP 07/17/20 Usha Simon APRN MOTORCYCLE ASSEMBLER [address] [place] [address] [id number] [place] [address] Nurse Practitioner Neurological Surgery 01/24/24 Dangelo Salinas MD [address] [place] [address] Neurology 01/27/24 Joya Lira [facility] [address] [place] [address] Pharmacist Pharmacist 05/25/24 Joya Lira [facility] [address] [place] [address] Assigned MTM Pharmacist 06/08/24 Fabi Coates MD [address] [place] [address] 75 [place] [address] Genetics, Clinical 06/18/24 Arthur Salas, [facility] [address] [address] Assigned Behavioral Health Provider 08/08/24 Randy Maradiaga DO [address] [place] [address] Assigned Neuroscience Provider 08/08/24 Tete Wang MD 2450 [place], [place] 240824 Genetics, Clinical 10/30/24 Dahlia Joyce MD [address] [place] [address] Radiology Neuroradiology 11/17/24 Lisa Zambrano MD 6405 [facility] [address] [place], [place] 703735 Assigned Heart and Vascular Provider 12/06/24 Tete Wang MD [address] [place] [address] Assigned Pediatric Specialist Provider 01/06/25 Any Joiner MD 420 [facility] 276 [place] [address] Assigned Pulmonology Provider 02/05/25 documented as of this encounter
--- OUTSIDE RECORDS SUMMARY | 2025-03-09 12:26 | XMS_ITS | Encounter Summary ---
Author Organization [facility] Address [address] [place] [address] Care Team Providers Care Golf Course Assistant Name Role Phone Winston Villatoro OD Unavailable [phone] Denise Woodson APRN CHICK SEXER Unavailable +[phone] Denise Woodson APRN CHICK SEXER Primary Care Provider Usha Simon APRN CHICK SEXER Unavailable + [phone] Dangelo Salinas MD Unavailable Joya Lira [facility] Unavailable [phone] Joya Lira [facility] Unavailable +[phone] Fabi Coates MD Unavailable [phone] Sinyigaya, Arthur [employer] Unavailable +[phone] Randy Maradiaga DO Unavailable + Tete Wang MD Unavailable +[phone] Dahlia Joyce MD Unavailable +[phone] Lisa Zambrano MD Unavailable + [phone] Tete Wang MD Unavailable [phone] Any Joiner MD Unavailable +[phone] Encounter Details Date Type Department Care Team (Latest Contact Info) Description 02/16/2025 Travel Social History Tobacco Use Types Packs/Day [...] re latives? 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 Gender Identity Not on file Sexual Orientation [...] 03/16/2025 8:00 AM CDT Virtual Visit M [address] [address] Bindu Bueno, OD 909 [place] [address] Rubi Johnson, OT VALARIE BALBUENA [address] 994927 03/26/2025 12:45 PM CDT Therapy Visit M [address] [phone] Bindu Bueno, OD 909 [place], [place] 479555 Rubi Johnson, OT [facility] 150 [place] [address] 04/02/2025 9:30 AM CDT Therapy Visit [facility] 150 [place] [phone] Randy Maradiaga, DO [address] [place] [address] 982415 Delicia George, PT 150 [place], [place] [address]147 04/06/2025 11:00 AM CDT Virtual Visit [facility] 150 [place] [phone] Bindu Bueno, OD 909 [place] [address] Rubi Johnson, OT [facility] 150 [place] [address] 04/06/2025 12:30 PM CDT Therapy Visit [facility] 150 [place] [phone] Randy Maradiaga, DO [address] [place] [address] Delicia George, PT 150 [place], [place] 695097 04/16/2025 11:00 AM CDT Therapy Visit [address] [phone] Bindu Bueno, OD 909 [place] [address] Rubi Johnson, OT [address] [address] 04/23/2025 12:45 PM CDT Therapy Visit [address] [phone] Bindu Bueno, OD 909 [place] [address] Rubi Johnson, OT [address] [address] 04/23/2025 2:00 PM CDT Therapy Visit [address] [phone] Randy Maradiaga, DO [address] [place] [address] Delicia George, PT 150 [place] [address] 04/30/2025 10:15 AM CDT Therapy Visit [address] [phone] Randy Maradiaga, DO [address] [place] [address] Delicia George, PT 150 [facility] [address] 05/04/2025 11:00 AM CDT Virtual Visit [address] [phone] Bindu Bueno, OD 909 [place] [address] Rubi Johnson, OT [address] [address] 05/07/2025 10:15 AM CDT Therapy Visit [address] [phone] Randy Maradiaga, DO [address] [place] [address] Delicia George, PT 150 [facility] [place] [address] 05/14/2025 10:15 AM CDT Therapy Visit [address] [phone] Randy Maradiaga, DO [address] [place] [address] Delicia George, PT 150 [facility] [place] [address] 05/14/2025 11:00 AM CDT Therapy Visit [address] [phone] Bindu Bueno, OD 909 [place], [place] 721435 Rubi Johnson, OT [facility] 150 [place] [address] 06/01/2025 11:15 AM CDT Appointment [facility] Imaging [address] [place] [phone] Robin Zepeda MD [address] [place] [address] 485055 06/02/2025 2:20 PM CDT Virtual Visit [facility] Neurosurgery Clinic [address] [phone] Robin Zepeda MD [address] [place] [address] 744745 07/01/2025 12:00 PM CDT Virtual Visit [facility] Physical Medicine [facility] Rehabilitation Clinic [address] [phone] Santa Menon, PA-C [address] [place] [address] [id number] 08/03/2025 4:30 PM INSPECTOR SCALES Virtual Visit [facility] [address] [phone] Any Joiner MD [address] [place] [address] 349345 documented as of this encounter Goals Goal [...] as of this encounter Care Teams Golf Course Assistant Relationship Specialty Start Date End Date Winston Villatoro OD [facility] [place] [address] [place] [address] PCP - Ophthalmology Ophthalmology 02/11/13 Denise Woodson APRN CHICK SEXER [address] [place] [address] PCP - General Family Practice 09/21/20 Denise Woodson APRN CHICK SEXER [address] [place] [address] Assigned PCP 07/17/20 Usha Simon APRN CHICK SEXER 9 [facility] [address] Nurse Practitioner Neurological Surgery 01/24/24 Dangelo Salinas MD [address] [place] [address] Neurology 01/27/24 Joya Lira RPH [address] [place], [place] [address]47[address] Pharmacist Pharmacist 05/25/24 Joya Lira R[facility] [address] [place], [place] 34087406 Assigned MTM Pharmacist 06/08/24 Fabi Coates MD 420 [facility] 75 [place], [place] [address] Genetics, Clinical 06/18/24 ChristophsamanthaledyNeishazohraabilio, [employer] [address] [place] [address] Assigned Behavioral Health Provider 08/08/24 Randy Maradiaga DO 909 [place], [place] 443145 Assigned Neuroscience Provider 08/08/24 Tete Wang MD [address] [place] [address] 899864 Genetics, Clinical 10/30/24 Dahlia Joyce MD 909 [place], [place] 818495 Radiology Neuroradiology 11/17/24 Lisa Zambrano MD 6[address] [facility] [address] [place] [address] Assigned Heart and Vascular Provider 12/06/24 Tete Wang MD [address] [place] [address] 582154 Assigned Pediatric Specialist Provider 01/06/25 Any Joiner MD 420 [facility] 276 [place] [address] Assigned Pulmonology Provider 02/05/25 documented as of this encounter
--- OUTSIDE RECORDS SUMMARY | 2025-03-09 12:26 | XMS_ITS | Encounter Summary ---
Author Organization [facility] Address [address] [place] [address] Care Team Providers Care Junior Estimator Name Role Phone Shauna Winston Se OD Unavailable [phone] Denise Woodson APRN GROUP BURNER MACHINE Unavailable [phone] Denise Woodson APRN GROUP BURNER MACHINE Primary Care Provider Usha Simon APRN GROUP BURNER MACHINE Unavailable + [phone] Dangelo Salinas MD Unavailable Joya Lira [facility] Unavailable [phone] Joya Lira [facility] Unavailable +[phone] Fabi Coates MD Unavailable [phone] SinyigayaArthur SEISMOGRAPH OPERATOR HELPER Unavailable [phone] Randy Maradiaga DO Unavailable + Tete Wang MD Unavailable [phone] Dahlia Joyce MD Unavailable [phone] Lisa Zambrano MD Unavailable + [phone] Tete Wang MD Unavailable +[phone] Any Joiner MD Unavailable [phone] Reason for Visit * Reason Onset Date Comments Results 02/23/2025 Encounter Details Date Type Department Care Team (Late st Contact Info) Description 02/23/2025 [facility] 2450 [facility] [address],[place] [address] Xochilt Mancuso, 2450 [place] [address] Results Social History Tobacco Use Types Packs/Day Years [...] re latives? 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 Gnosticism Services Not on file 01/22 Active Member [...] Answer Date Recorded PHQ-2 Score 3 01/25/2025 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 Left non detailed ISMAEL Spoke with Alcon and reviewed the following: This testing was negative or normal. This means that this test did not identify a genetic cause foryour health history. Follow up in genetics clinic in one year or sooner if new symptoms occur. Xochilt Mancuso MS [facility] Genetic Counselor Division of Genetics and Metabolism (p) [phone] (f) [phone] documented in this encounter Plan of Treatment Upcoming Encounters Date Type Department Care Team (Late st Contact Info) Description 03/16/2025 8:00 AM CDT Virtual Visit [address] [phone] BuenoMagaliBindu, OD 909 [place], [place] [phone] Rubi Johnson, OT [address] 653457 03/26/2025 12:45 PM CDT Therapy Visit [address] [phone] Magali Buenoissa, OD 909 [place], [place] 785[address] Rubi Johnson, OT [address] 094567 04/02/2025 9:30 AM CDT Therapy Visit [address] [phone] Randy Maradiaga, DO 909 [place], [place] 743885 Delicia George, PT 150 [place], [place] [phone] 04/06/2025 11:00 AM CDT Virtual Visit [address] [phone] BuenoBindu flores, OD 909 [place] [address] Rubi Johnson, OT [address] [address] 04/06/2025 12:30 PM CDT Therapy Visit [address] [phone] Randy Maradiaga, DO 909 [place], [place] 655685 Delicia George, PT 150 [place] [address] 04/16/2025 11:00 AM CDT Therapy Visit [address] [phone] MylesBindu, OD 909 [place], [place] 665385 Rubi Johnson, OT [address] 194267 04/23/2025 12:45 PM CDT Therapy Visit [address] [phone] MylesBindu, OD 909 [place], [place] 112225 Rubi Johnson, OT [facility] [address] [address] 04/23/2025 2:00 PM CDT Therapy Visit [address] [phone] Randy Maradiaga, DO [address] [place] [address] Delicia George, PT 150 [facility] [place] [address] 04/30/2025 10:15 AM CDT Therapy Visit [address] [phone] Randy Maradiaga, DO [address] [place] [address] Delicia George, PT 150 [facility] [place] [address] 05/04/2025 11:00 AM CDT Virtual Visit [address] [phone] Bindu Bueno, OD 909 [place] [address] Rubi Johnson, OT [address] [address] 05/07/2025 10:15 AM CDT Therapy Visit [address] [phone] Randy Maradiaga, DO 909 [place] [address] Delicia George, PT 150 [place] [address] 05/14/2025 10:15 AM CDT Therapy Visit [address] [phone] Randy Maradiaga, DO 9 [place], [place] 846525 Delicia George, PT 150 [place] [address] 05/14/2025 11:00 AM CDT Therapy Visit [address] [phone] Bindu Bueno, OD 909 [place], [place] 109325 Rubi Johnson, [address] [address] 06/01/2025 11:[address] [facility] Imaging [address] [place] [phone] Rboin Zepeda MD [address] [place], [place] [address]CJ [place] [address] 06/02/2025 2:20 PM CDT Virtual Visit [facility] Neuro[facility] [place] [address] [phone] Robin Zepeda MD [address] [place] [address] [id number] [place], [place] 838875 07/01/2025 12:00 PM CDT Virtual Visit [facility] Physical Medicine and Rehabilitation Clinic [address] [phone] Santa Menon, PA-C [address] [place] [address] 398045 08/03/2025 4:30 PM NETWORK SUPPORT ADMINISTRATOR Virtual Visit [facility] for [facility] Clinic [address] [phone] Any Joiner MD 420 [facility] 276 [place], [place] 997464[address] documented as of this encounter Goals Goal [...] as of this encounter Care Teams Junior Estimator Relationship Specialty Start Date End Date Winston Villatoro OD [facility] [place] [address] [place] [address] PCP - Ophthalmology Ophthalmology 02/11/13 Denise Woodson APRN GROUP BURNER MACHINE [address] [address] [address] PCP - General Family Practice 09/21/20 Denise Woodson APRN GROUP BURNER MACHINE [address] [place] [address] Assigned PCP 07/17/20 Usha Simon APRN GROUP BURNER MACHINE 909 [facility] [id number] [place] [address] Nurse Practitioner Neurological Surgery 01/24/24 Dangelo Salinas MD [address] [place] [address] Neurology 01/27/24 Joya Lira RPH [address] [place] [address] Pharmacist Pharmacist 05/25/24 Joya Lira Joleen [address] [place] [address] Assigned MTM Pharmacist 06/08/24 Fabi Coates MD 420 [facility] 75 [place] [address] Genetics, Clinical 06/18/24 Arthur Salas, [facility] [address] [place] [address] Assigned Behavioral Health Provider 08/08/24 Randy Maradiaga DO [address] [place] [address] Assigned Neuroscience Provider 08/08/24 Tete Wang MD 2450 [place], [place] 715694 Genetics, Clinical 10/30/24 Dahlia Joyce MD 909 [place], [place] 777925 Radiology Neuroradiology 11/17/24 Lisa Zambrano MD 6405 [facility] [address] [place], [place] 066975 Assigned Heart and Vascular Provider 12/06/24 Tete Wang MD [facility] [place], [place] 745214 Assigned Pediatric Specialist Provider 01/06/25 Any Joiner MD 420 [facility] 276 [place], [place] [address] Assigned Pulmonology Provider 02/05/25 documented as of this encounter
--- OUTSIDE RECORDS SUMMARY | 2025-03-09 12:26 | XMS_ITS | Encounter Summary ---
Author Organization [facility] Address [address] [place] [address] Care Team Providers Care Restaurant Managing Partner Name Role Phone Winston Villatoro OD Unavailable [phone] Denise Woodson APRN AMMONIA STILL OPERATOR Unavailable [phone] Denise Woodson APRN AMMONIA STILL OPERATOR Primary Care Provider Usha Simon APRN AMMONIA STILL OPERATOR Unavailable + [phone] Dangelo Salinas MD Unavailable Joya Lira [facility] Unavailable [phone] Joya Lira [facility] Unavailable [phone] Fabi Coates MD Unavailable [phone] Sinyigaya, Arthur REALTIME COURT REPORTER Unavailable +[phone] Randy Maradiaga DO Unavailable + Tete Wang MD Unavailable [phone] Dahlia Joyce MD Unavailable +[phone] Lisa Zambrano MD Unavailable + [phone] Tete Wang MD Unavailable [phone] Any Joiner MD Unavailable +[phone] Encounter Details Date Type Department Care Team (Latest Contact Info) Description 02/12/2025 Travel Social History Tobacco Use Types Packs/Day [...] re latives? 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 Not on file Not on file Not on file Not on file Not on file Not on file documented as of this encounter Plan of Treatment Upcoming Encounters Date Type Department Care Team (Late st Contact Info) Description 03/16/2025 8:00 AM CDT Virtual Visit M [address] [phone] Bindu Bueno, OD [address] [place] [address] Rubi Johnson, OT VALARIE BALBUENA [address] [id number] 03/26/2025 12:45 PM CDT Therapy Visit M [address] [phone] Bindu Bueno, OD [address] [place], [place] [phone] Rubi [facility], OT [facility] 150 [place] [address] 04/02/2025 9:30 AM CDT Therapy Visit [facility] 150 [place] [phone] Randy Maradiaga, DO [address] [place] [address] 796785 Delicia George, PT [address] [place] [place], [place] [address]127 04/06/2025 11:00 AM CDT Virtual Visit [facility] [address] [place] [phone] Bindu Bueno, OD [address] [place] [address] Rubi Johnson, OT [facility] 150 [place] [address] 04/06/2025 12:30 PM CDT Therapy Visit [facility] [address] [place] [phone] Randy Maradiaga, DO [address] [place] [address] Delicia George, PT [address] [place], [place] 644697 04/16/2025 11:00 AM CDT Therapy Visit [address] [phone] Bindu Bueno, OD [address] [place] [address] Rubi Johnson, OT [address] [address] 04/23/2025 12:45 PM CDT Therapy Visit [address] [phone] Bindu Bueno, OD [address] [place] [address] Rubi Johnson, OT [address] [address] 04/23/2025 2:00 PM CDT Therapy Visit [address] [phone] Randy Maradiaga, DO [address] [place] [address] Delicia George, PT 150 [place] [address] 04/30/2025 10:15 AM CDT Therapy Visit [address] [phone] Randy Maradiaga, DO [address] [place] [address] Delicia George, PT 150 [facility] [place] [address] 05/04/2025 11:00 AM CDT Virtual Visit [address] [phone] Bindu Bueno, OD [address] [place] [address] Rubi Johnson, OT [address] [address] 05/07/2025 10:15 AM CDT Therapy Visit [address] [phone] Randy Maradiaga, DO [address] [place] [address] Delicia George, PT 150 [place] [address] 05/14/2025 10:15 AM CDT Therapy Visit [address] [phone] Randy Maradiaga, DO [address] [place] [address] Delicia George, PT 150 [place] [address] 05/14/2025 11:00 AM CDT Therapy Visit [address] [phone] Bindu Bueno, OD [address] [place] [address] Rubi Johnson, OT [facility] [address] [place] [address] 06/01/2025 11:15 AM CDT Appointment [facility] [address] [place] [address] Robin Zepeda MD [address] [place] [address] 977965 06/02/2025 2:20 PM CDT Virtual Visit [facility] [address] [phone] Robin Zepeda MD [address] [place] [address] 07/01/2025 12:00 PM CDT Virtual Visit [facility] [address] [phone] Santa Menon, PA-C [address] [place] [address] 792525 08/03/2025 4:30 PM FARE ENFORCEMENT OFFICER Virtual Visit [facility] [address] [phone] Any Joiner MD [address] [place] [address] 695345 documented as of this encounter Visit Diagnoses Not on filedocumented in this encounter Additional Health Concerns Assessment Noted Time PHQ-9 Depression Total Score: 11 025 11:39 AM CDT documented as of this encounter Care Teams Restaurant Managing Partner Relationship Specialty Start Date End Date Winston Villatoro OD [facility] [place] [address] [place] [address] PCP - Ophthalmology Ophthalmology 02/11/13 Denise Woodson APRN AMMONIA STILL OPERATOR [address] [place] [address] PCP - General Family Practice 09/21/20 Denise Woodson APRN AMMONIA STILL OPERATOR [address] [address] [place] [address] Assigned PCP 07/17/20 Usha Simon APRN AMMONIA STILL OPERATOR [address] [place] [address] [address] Nurse Practitioner Neurological Surgery 01/24/24 Dangelo Salinas MD [address] [place] [address] Neurology 01/27/24 Joya Lira RPH [address] [place] [address] Pharmacist Pharmacist 05/25/24 Joya Lira RPH [address] [place] [address] Assigned MTM Pharmacist 06/08/24 Fabi Coates MD [address] [place] [address] 75 [place] [address] Genetics, Clinical 06/18/24 Arthur Salas, [facility] [address] [place] [address] Assigned Behavioral Health Provider 08/08/24 Randy Maradiaga DO [address] [place], [place] 305275 Assigned Neuroscience Provider 08/08/24 Tete Wang MD [address] [place] [address] 675944 Genetics, Clinical 10/30/24 Dahlia Joyce MD [address] [place] [address] 844885 Radiology Neuroradiology 11/17/24 Lisa Zambrano MD [address] [facility] [address] [place], [place] 462565 Assigned Heart and Vascular Provider 12/06/24 Tete Wang MD [address] [place] [address] 608894 Assigned Pediatric Specialist Provider 01/06/25 Any Joiner MD [address] [place] [address] [address] [place], [place] 363085 Assigned Pulmonology Provider 02/05/25 documented as of this encounter
--- OUTSIDE RECORDS SUMMARY | 2025-03-09 12:26 | XMS_ITS | Encounter Summary ---
Author Organization [facility] Address [address] [place] [address] Care Team Providers Care Chief Revenue Officer Name Role Phone Darius Shaw M.D. Primary Care Provider [phone] Encounter Details Date Type Department Care Team (Late st Contact Info) Description 05/12/2013 Historical Ophthalmology [facility] Jonathan Bonilla M.D. [address] [place] [phone] Social History Tobacco Use Types Packs/Day Years Used Date Smoking Tobacco: Never Assessed Comments Unknown Sex and Gender Information Value Date Recorded Sex Assigned at Female 02/11/2018 8:36 AM CDT Legal Sex Female 8:24 AM TRANSMISSIONS SYSTEMS OPERATOR Gender Identity Female 02/11/2018 8:36 AM [...] corneal thickness CDM Reports - EYEGEN Id: [id number] Status: Fnl documented in this encounter Plan of Treatment Not on file documented as of this encounter Visit Diagnoses Not on filedocumented in this encounter Additional Health Concerns Infection Onset Date Last Indicated Resolved Time COVID19 Pending 07/11/2020 07/11/2020 07/12/2020 5 :56 PM CDT COVID19 Pending 07/17/2020 07/17/2020 07/17/2020 9 :18 PM TRANSMISSIONS SYSTEMS OPERATOR COVID19 Pending 09/19/2020 09/19/2020 10/09/2020 4 :45 AM TRANSMISSIONS SYSTEMS OPERATOR COVID19 Pending 10/25/2020 10/26/2020 10/27/2020 9 :59 AM TRANSMISSIONS SYSTEMS OPERATOR COVID19 Pending 06/03/2021 06/03/2021 06/03/2021 9 :40 AM CDT COVID19 Pending 06/03/2021 06/03/2021 06/03/2021 1 0:36 PM CDT COVID19 Pending 08/09/2021 08/09/2021 08/11/2021 1 2:57 AM TRANSMISSIONS SYSTEMS OPERATOR COVID19 Pending 06/26/2022 06/26/2022 06/26/2022 5 :47 PM CDT Assessment Noted Time PHQ-9 Depression Total Score: 8 09/18/19 13 7:41 AM TRANSMISSIONS SYSTEMS OPERATOR documented as of this encounter Care Teams Chief Revenue Officer Relationship Specialty Start Date End Date Darius Shaw M.D. [address] [place] [phone] PCP - General Family Medicine 09/27/22 documented as of this encounter
--- OUTSIDE RECORDS SUMMARY | 2025-03-09 12:27 | XMS_ITS | Encounter Summary ---
Author Organization [facility] Address [address] [place] [address] Care Team Providers Care Panel Builder Name Role Phone ShaunaTarikle Se OD Unavailable [phone] Denise Woodson APRN DOCTOR'S ASSISTANT Unavailable [phone] Denise Woodson APRN DOCTOR'S ASSISTANT Primary Care Provider Usha Simon APRN DOCTOR'S ASSISTANT Unavailable + [phone] Dangelo Salinas MD Unavailable Joya Lira [facility] Unavailable [phone] Joya Lira [facility] Unavailable +[phone] Fabi Coates MD Unavailable [phone] Sinyigaya Specmadi [facility] [facility] Unavailable [phone] Randy Maradiaga DO Unavailable + Tete Wang MD Unavailable [phone] Dahlia Joyce MD Unavailable [phone] Lisa Zambrano MD Unavailable + [phone] Tete Wang MD Unavailable [phone] Any Joiner MD Unavailable [phone] Encounter Details Date Type Department Care Team (Late st Contact Info) Description 01/20/2025 [facility] [address] [place] [address] Santa Menon PA-C [address] [place] [address] [id number] Social History Tobacco Use Types Packs/Day Years [...] re latives? 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 She recommend tapering the trazodone while starting the Amitriptyline to prevent over sedation. Try decreasing to half a tablet of trazodone while starting the Amitriptyline to see if this helps your symptoms. Santa Menon PA-C Peace Officer called to [place] to get details regarding her message I stopped the amitryptiline due to side effects. She answers that she started the amitriptyline 25 mg at least 8 days ago maybe January 11 or She answers that she had the last dose of amitriptyline 2 nights ago She answers that she began to cut the trazodone 100 mg in half January 06 (at the advice of a pharmacist as noted in 01/06/25 encounter) She answers that the side effects of amitriptyline for her are weight gain and constipation - clarifies that she increased her water intake and continued her regimen of metamucil however she is still feeling more constipated which began 3 days after starting the amitriptyline through today She answers that she has not had headaches at all since the visit with Ms. Leticia Dejesus PA-C 12/31, also that she has not had a headache for the past several months, but that on the day of PM &R consult she was having a headache. [place] stated she is not interested in any other medication for headaches because she does not have headaches on a regular basis. She answers she is still taking half tab of trazodone and is not sure if she needs a medication forsleep & that she will see her PCP Denise Woodson CNP on Saturday - plans to ask about the trazodone, answers that there has not been any effect or difference noted since 01/06 when she has cut the trazodone in half, also believes that it was intended for her to promote sleep, started maybe 20 years ago (as noted in 01/06/25 encounter). Pt stated she just wanted Lynsey BLAKE to know she wasn't taking amitriptyline. Orders from consult visit on 12/31/24: Neuro Optometry - appt is booked for 02/01/25 Occupational therapy for sleep difficultly, vision/headaches, cognitive and sensitive to light/sound - pt answered she booked (both) referrals, but OT was not booked, (did not respond to messages left) Encouraged to continue PT for vestibular therapy - next appt is January 26 Return concussion appt is March 04 Will assist to get OT eval booked Hannah Kaur RN on 01/20/2025 at 3:58 PM documented in this encounter Plan of Treatment Upcoming Encounters Date Type Department Care Team (Late st Contact Info) Description 03/16/2025 8:00 AM CDT [facility] [phone] Bindu Bueno, OD [address] [place], [place] 612685 Rubi Johnson, OT [address] 541137 03/26/2025 12:45 PM CDT Therapy Visit [address] [phone] Bindu Bueno, OD [address] [place], [place] 617515 Rubi Johnson, OT [address] 838977 04/02/2025 9:30 AM CDT Therapy Visit [address] [phone] Randy Maradiaga, DO [address] [place] [address] Delicia George, PT 150 [place], [place] 400437 04/06/2025 11:00 AM CDT Virtual Visit [address] [phone] Bindu Bueno, OD [address] [place], [place] 578685 Rubi Johnson, OT [facility] 150 [place] [address] 04/06/2025 12:30 PM CDT Therapy Visit [facility] 150 [place] [phone] Randy Maradiaga, DO [address] [place] [address] Delicia George, PT 150 [facility] [place] [address] 04/16/2025 11:00 AM CDT Therapy Visit [address] [phone] Bindu Bueno, OD [address] [place], [place] 998205 Rubi Johnson, OT [facility] 150 [place] [address] 04/23/2025 12:45 PM CDT [facility] 150 [place] [phone] Bindu Bueno, OD [address] [place] [address] Rubi Johnson, OT [facility] 150 [place] [address] 04/23/2025 2:00 PM CDT Therapy Visit [address] [phone] Randy Maradiaga, DO [address] [place] [address] Delicia George, PT 150 [place] [address] 04/30/2025 10:15 AM CDT Therapy Visit [address] [phone] Randy Maradiaga, DO [address] [place] [address] 832135 Delicia George, PT 150 [place] [address] 05/04/2025 11:00 AM CDT Virtual Visit [address] [phone] Bindu Bueno, OD [address] [place] [address] Rubi Johnson, OT [address] [address] 05/07/2025 10:15 AM CDT Therapy Visit [address] [phone] Randy Maradiaga, DO [address] [place] [address] Delicia George, PT [address] [place] [place], [place] 540767 05/14/2025 10:15 AM CDT Therapy Visit [address] [phone] Randy Maradiaga DO [address] [place] [address] 447515 Delicia George, PT 150 [facility] [place] [address] 05/14/2025 11:00 AM CDT Therapy Visit [address] [phone] Bindu Bueno, OD [address] [place] [address] Rubi Johnson, [address] [address] 06/01/2025 11:15 AM CDT Appointment [facility] Imaging [address] [place] [phone] Robin Zepeda MD [address] [place] [address] 06/02/2025 2:20 PM CDT Virtual Visit [facility] [address] 3rd [place] [phone] Robin Zepeda MD [address] [place] [address] 174505 07/01/2025 12:00 PM CDT Virtual Visit [facility] [address] 3rd [place] [address] Santa Menon PAMani [address] [place] [address] 177185 08/03/2025 4:30 PM FULL SERVICE SUPERVISOR Virtual Visit [facility] [address] [phone] Any Joiner MD [address] [facility] 276 [place] [address] documented as of this encounter Visit Diagnoses Not on filedocumented in this encounter Additional Health Concerns Assessment Noted Time PHQ-9 Depression Total Score: 7 01/08/20 25 8:00 AM CDT documented as of this encounter Care Teams Panel Builder Relationship Specialty Start Date End Date Winston Villatoro OD [facility] [address] [facility] [address] [place] [address] PCP - Ophthalmology Ophthalmology 02/11/13 Denise Woodson APRN DOCTOR'S ASSISTANT [address] [place] [address] PCP - General Family Practice 09/21/20 Denise Woodson APRN DOCTOR'S ASSISTANT [address] [place] [address] Assigned PCP 07/17/20 Usha Simon APRN DOCTOR'S ASSISTANT [address] [place] [address] [id number] [place] [address] Nurse Practitioner Neurological Surgery 01/24/24 Dangelo Salinas MD [address] [place], [place] [id number] Neurology 01/27/24 [facility] [address] [place] [address] Pharmacist Pharmacist 05/25/24 Joya Lira [facility] [address] [place] [address] Assigned MTM Pharmacist 06/08/24 Fabi Coates MD [address] [place] [address] 75 [place] [address] Genetics, Clinical 06/18/24 Arthur Salas, [facility] [address] [place] [address] Assigned Behavioral Health Provider 08/08/24 Randy Maradiaga DO [address] [place] [address] Assigned Neuroscience Provider 08/08/24 Tete Wang MD [address] [facility] [place] [address] Genetics, Clinical 10/30/24 Dahlia Joyce MD [address] [place], [place] 286335 Radiology Neuroradiology 11/17/24 Lisa Zambrano MD [address] [facility] [address] [place] [address] Assigned Heart and Vascular Provider 12/06/24 Tete Wang MD [address] [facility] [place], [place] 654894 Assigned Pediatric Specialist Provider 01/06/25 Any Joiner MD [address] [place] [address] 276 [place], [place] 735345 Assigned Pulmonology Provider 02/05/25 documented as of this encounter
--- OUTSIDE RECORDS SUMMARY | 2025-03-09 12:27 | XMS_ITS | Encounter Summary ---
Author Organization [place] Address [address] [place] [address] Care Team Providers Care Bookkeeping Teacher Name Role Phone Winston Villatoro OD Unavailable [phone] Denise Woodson APRN TAPE FOLDING MACHINE OPERATOR Unavailable +[phone] Denise Woodson APRN TAPE FOLDING MACHINE OPERATOR Primary Care Provider Usha Simon APRN TAPE FOLDING MACHINE OPERATOR Unavailable + [phone] Dangelo Salinas MD Unavailable Joya Lira [facility] Unavailable +[phone] Joya Lira [facility] Unavailable +[phone] Fabi Coates MD Unavailable [phone] SinyigaArthur villafana OPTOMETRIST OWNER Unavailable +[phone] Randy Maradiaga DO Unavailable + Tete Wang MD Unavailable +[phone] Dahlia Joyce MD Unavailable +[phone] Lisa Zambrano MD Unavailable + [phone] Tete Wang MD Unavailable +[phone] Any Joiner MD Unavailable +[phone] Encounter Details Date Type Department Care Team (Late st Contact Info) Description 01/26/2025 Results Follow-Up [facility] [address] [place] [phone] Any Joiner MD 420 [facility] 276 [place] [address] Subj: lab results Social History Tobacco Use Types Packs/Day Years [...] re latives? 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 Gender Identity Not on file Sexual [...] Description 03/16/2025 8:00 AM CDT Virtual Visit [address] [phone] Bindu Bueno, OD [address] [place], [place] [address] Rubi Johnson, OT [facility] 150 [place] [address] 03/26/2025 12:45 PM CDT [facility] 150 [place] [phone] Bindu Bueno, OD 909 [place], [place] [address] Rubi Johnson, OT [address] [address] 04/02/2025 9:30 AM CDT Therapy Visit [address] [phone] Randy Maradiaga, DO 909 [place] [address] Delicia George, PT 150 [facility] [place] [address] 04/06/2025 11:00 AM CDT Virtual Visit [address] [phone] Bindu Bueno, OD 909 [place] [address] Rubi Johnson, OT [address] [address] 04/06/2025 12:30 PM CDT Therapy Visit [address] [phone] Randy Maradiaga, DO [address] [place] [address] Delicia George, PT 150 [place] [address] 04/16/2025 11:00 AM CDT Therapy Visit [address] [phone] Bindu Bueno, OD 909 [place], [place] [address] Rubi Johnson, OT [address] [address] 04/23/2025 12:45 PM CDT Therapy Visit [address] [phone] Bindu Bueno, OD 909 [place] [address] Rubi Johnson, OT [address] [address] 04/23/2025 2:00 PM CDT Therapy Visit [address] [phone] Randy Maradiaga, DO [address] [place] [address] Delicia George, PT 150 [place] [address] 04/30/2025 10:15 AM CDT Therapy Visit [address] [phone] Randy Maradiaga, DO [address] [place] [address] Delicia George, PT 150 [place] [address] 05/04/2025 11:00 AM CDT Virtual Visit [address] [phone] Bindu Bueno, OD 909 [place] [address] Rubi Johnson, OT [address] [address] 05/07/2025 10:15 AM CDT Therapy Visit [address] [phone] Randy Maradiaga, DO [address] [place] [address] Delicia George, PT 150 [place] [address] 05/14/2025 10:15 AM CDT Therapy Visit [address] [phone] Randy Maradiaga, DO [address] [place] [address] Delicia George, PT 150 [facility] [place] [address] 05/14/2025 11:00 AM CDT Therapy Visit [facility] [address] [phone] Bindu Bueno, OD 9 [place], [place] [address] Rubi Johnson, OT [address] [address] 06/01/2025 11:15 AM CDT Appointment [facility] Imaging [address] [place] [phone] Robin Zepeda MD [address] [place] [address] 045695 06/02/2025 2:20 PM CDT Virtual Visit [facility] [address] [phone] Robin Zepeda MD [address] [place] [address] 369295 07/01/2025 12:00 PM CDT Virtual Visit [facility] Rehabilitation [address] [phone] [place] [facility] [address] [place] [address] 902845 08/03/2025 4:30 PM ENGINEERING DOCUMENTATION SPECIALIST Virtual Visit [facility] [address] [phone] Any Joiner MD 420 [facility] 276 [place] [address] documented as of this encounter Visit Diagnoses Not on filedocumented in this encounter Additional Health Concerns Assessment Noted Time PHQ-9 Depression Total Score: 11 025 11:39 AM CDT documented as of this encounter Care Teams Bookkeeping Teacher Relationship Specialty Start Date End Date Winston Villatoro OD [facility] [place] [address] [place] [address] PCP - Ophthalmology Ophthalmology 02/11/13 Denise Woodson APRN TAPE FOLDING MACHINE OPERATOR [address] [place] [address] PCP - General Family Practice 09/21/20 Denise Woodson APRN TAPE FOLDING MACHINE OPERATOR [address] [place] [address] Assigned PCP 07/17/20 Usha Simon APRN TAPE FOLDING MACHINE OPERATOR [address] [place] [address], [place] [address] Nurse Practitioner Neurological Surgery 01/24/24 Dangelo Salinas MD [address] [place] [address] Neurology 01/27/24 Joya Lira RPH [address] [place] [address] Pharmacist Pharmacist 05/25/24 Joya Lira RPH [address], [place] [address] Assigned MTM Pharmacist 06/08/24 Fabi Coates MD 420 [facility] 75 [place] [address] Genetics, Clinical 06/18/24 Arthur Salas, [facility] [address] [place] [address] Assigned Behavioral Health Provider 08/08/24 Randy Maradiaga DO 909 [place] [address] Assigned Neuroscience Provider 08/08/24 Tete Wang MD [address] [place] [address] Genetics, Clinical 10/30/24 Dahlia Joyce MD 909 [place] [address] Radiology Neuroradiology 11/17/24 Lisa Zambrano MD 6405 [facility] [address] [place] [address] Assigned Heart and Vascular Provider 12/06/24 Tete Wang MD [address] [place] [address] Assigned Pediatric Specialist Provider 01/06/25 Any Joiner MD 420 [facility] [address] [place], [place] 9[address] Assigned Pulmonology Provider 02/05/25 documented as of this encounter
--- OUTSIDE RECORDS SUMMARY | 2025-03-09 12:27 | XMS_ITS | Encounter Summary ---
Author Organization [place] Address [address] [place] [address] Care Team Providers Care Legal Analyst Name Role Phone Winston Villatoro OD Unavailable [phone] Denise Woodson APRN DOCUMENT CONTROL SUPERVISOR Unavailable [phone] Denise Woodson APRN DOCUMENT CONTROL SUPERVISOR Primary Care Provider Usha Simon APRN DOCUMENT CONTROL SUPERVISOR Unavailable + [phone] Dangelo Salinas MD Unavailable Joya Lira [facility] Unavailable [phone] [facility] Unavailable [phone] Fabi Coates MD Unavailable [phone] Sinyigaya, Arthur PERSONAL PROPERTY APPRAISER Unavailable [phone] Randy Maradiaga DO Unavailable + Tete Wang MD Unavailable +[phone] Dahlia Joyce MD Unavailable [phone] Lisa Zambrano MD Unavailable +- [phone] Tete Wang MD Unavailable +[phone] Encounter Details Date Type Department Care Team (Latest Contact Info) Description 01/29/2025 Travel Social History Tobacco Use Types Packs/Day [...] re latives? 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 Gender Identity Not on file Sexual Orientation [...] Description 03/16/2025 8:00 AM CDT Virtual Visit [address] [phone] Bindu Bueno, OD 909 [place] [address] Rubi Johnson, OT VALARIE [address] 021487 03/26/2025 12:45 PM CDT Therapy Visit [address] [phone] Bindu Bueno, OD 909 [place] [address] Rubi Johnson, OT [address] [address] 04/02/2025 9:30 AM CDT Therapy Visit [address] [phone] Randy Maradiaga, DO [address] [place] [address] 490365 Delicia George, PT 150 [facility] [place] [address] 04/06/2025 11:00 AM CDT Virtual Visit [address] [phone] BuenoBindu, OD 909 [place] [address] Rubi Johnson, OT [address] [address] 04/06/2025 12:30 PM CDT Therapy Visit [address] [phone] Randy Maradiaga, DO [address] [place] [address] 865875 Delicia George, PT [address] [place], [place] [address]3847 04/16/2025 11:00 AM CDT Therapy Visit [facility] 150 [place] [phone] Bindu Bueno, OD 909 [place] [address] Rubi Johnson, OT [address] [address] 04/23/2025 12:45 PM CDT Therapy Visit [address] [phone] Bindu Bueno, OD 909 [place] [address] Rubi Johnson, OT [address] [address] 04/23/2025 2:00 PM CDT Therapy Visit [address] [phone] Randy Maradiaga, DO [address] [place] [address] 615455 Delicia George, PT [address] [place] [address] 04/30/2025 10:15 AM CDT Therapy Visit [address] [phone] Randy Maradiaga, DO [address] [place] [address] 308595 Delicia George, PT [address] [place] [address] 05/04/2025 11:00 AM CDT Virtual Visit [address] [phone] Bindu Bueno, OD 909 [place] [address] Rubi Johnson, OT [address] [address] 05/07/2025 10:15 AM CDT Therapy Visit [address] [phone] Randy Maradiaga, DO [address] [place] [address] Delicia George, PT 150 [facility] [place] [address] 05/14/2025 10:15 AM CDT Therapy Visit [address] [phone] Randy Maradiaga, DO [address] [place] [address] Delicia George, PT 150 [facility] [place] [address] 05/14/2025 11:00 AM CDT Therapy Visit [address] [phone] Bindu Bueno, OD [address] [place] [address] Rubi Johnson, OT [facility] 150 [place] [address] 06/01/2025 11:[address] [facility] Imaging [address] [place] [phone] Robin Zepeda MD [address] [place] [address] 322615 06/02/2025 2:20 PM CDT Virtual Visit [facility] [address] [phone] Robin Zepeda MD [address] [place] [address] 07/01/2025 12:00 PM CDT Virtual Visit [facility] [address] [phone] [place], PA-C [address] [place] [address] 059625 08/03/2025 4:30 PM WELDER JOURNEYMAN Virtual Visit [facility] [address] [phone] Any Joiner MD [address] [place] [address] 193395 documented as of this encounter Visit Diagnoses Not on filedocumented in this encounter Additional Health Concerns Assessment Noted Time PHQ-9 Depression Total Score: 11 025 11:39 AM CDT documented as of this encounter Care Teams Legal Analyst Relationship Specialty Start Date End Date Winston Villatoro OD [facility] [place] [address] [place] [address] PCP - Ophthalmology Ophthalmology 02/11/13 Denise Woodson APRN DOCUMENT CONTROL SUPERVISOR [address] [place] [address] PCP - General Family Practice 09/21/20 Denise Woodson APRN DOCUMENT CONTROL SUPERVISOR [address] [place] [address] Assigned PCP 07/17/20 Usha Simon APRN DOCUMENT CONTROL SUPERVISOR 909 [facility]2121[place], [place] 393325 Nurse Practitioner Neurological Surgery 01/24/24 Dangelo Salinas MD [address] [place] [address] Neurology 01/27/[address] [facility] [address] [place] [address] Pharmacist Pharmacist 05/25/[address] [facility] [address] [place] [address] Assigned MTM Pharmacist 06/08/24 Fabi Coates MD [address] [place] [address] 75 [place] [address] Genetics, Clinical 06/18/24 Arthur Salas LICSW [address] [place] [address] Assigned Behavioral Health Provider 08/08/24 Randy Maradiaga DO 909 [place] [address] Assigned Neuroscience Provider 08/08/24 Tete Wang MD [address] [place] [address] Genetics, Clinical 10/30/24 Dahlia Joyce MD 909 [place] [address] Radiology Neuroradiology 11/17/24 Lisa Zambrano MD 6405 [facility] [address] [place] [address] Assigned Heart and Vascular Provider 12/06/24 Tete Wang MD [address] [place] [address] Assigned Pediatric Specialist Provider 01/06/25 documented as of this encounter
--- OUTSIDE RECORDS SUMMARY | 2025-03-09 12:27 | XMS_ITS | Encounter Summary ---
Author Organization [place] Address [address] [place] [address] Care Team Providers Care Metal Mold Dresser Name Role Phone Winston Villatoro OD Unavailable [phone] Denise Woodson APRN MS SQL DBA Unavailable [phone] Denise Woodson APRN MS SQL DBA Primary Care Provider Usha Simon APRN MS SQL DBA Unavailable + [phone] Dangelo Salinas MD Unavailable Joya Lira [facility] Unavailable [phone] Joya Lira [facility] Unavailable [phone] Fabi Coates MD Unavailable [phone] Sinyigaya, Arthur CARE TEAM COORDINATOR SCHEDULER Unavailable [phone] Randy Maradiaga DO Unavailable + Tete Wang MD Unavailable +[phone] Dahlia Joyce MD Unavailable [phone] Lisa Zambrano MD Unavailable +- [phone] Tete Wang MD Unavailable +[phone] Encounter Details Date Type Department Care Team (Latest Contact Info) Description 01/25/2025 Travel Social History Tobacco Use Types Packs/Day [...] re latives? 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 Not on file Not on file Not on file Not on file Not on file Not on file documented as of this encounter Plan of Treatment Upcoming Encounters Date Type Department Care Team (Late st Contact Info) Description 03/16/2025 8:00 AM CDT Virtual Visit [address] [phone] Bindu Bueno, OD 909 [place] [address] Rubi Johnson, OT VALARIE [address] 623137 03/26/2025 12:45 PM CDT Therapy Visit [address] [phone] Bindu Bueno, OD 909 [place] [address] Rubi Johnson, OT [address] [address] 04/02/2025 9:30 AM CDT Therapy Visit [address] [phone] Randy Maradiaga, DO [address] [place] [address] 291865 Delicia George, PT 150 [facility] [place] [address] 04/06/2025 11:00 AM CDT Virtual Visit [address] [phone] BuenoBindu, OD 909 [place] [address] Rubi Johnson, OT [address] [address] 04/06/2025 12:30 PM CDT Therapy Visit [address] [phone] Randy Maradiaga, DO [address] [place] [address] 142945 Delicia George, PT [address] [place] [place], [place] 8[address] 04/16/2025 11:00 AM CDT Therapy Visit [facility] 150 [place] [phone] Bindu Bueno, OD 909 [place] [address] Rubi Johnson, OT [address] [address] 04/23/2025 12:45 PM CDT Therapy Visit [address] [phone] Bindu Bueno, OD 909 [place] [address] Rubi Johnson, OT [address] [address] 04/23/2025 2:00 PM CDT Therapy Visit [address] [phone] Randy Maradiaga, DO [address] [place] [address] 288415 Delicia George, PT [address] [place] [address] 04/30/2025 10:15 AM CDT Therapy Visit [address] [phone] Randy Maradiaga, DO [address] [place] [address] 575405 Delicia George, PT [address] [place] [address] 05/04/2025 11:00 AM CDT Virtual Visit [address] [phone] Bindu Bueno, OD 909 [place] [address] Rubi Johnson, OT [address] [address] 05/07/2025 10:15 AM CDT Therapy Visit [address] [phone] Randy Maradiaga, DO [address] [place] [address] Delicia George, PT 150 [facility] [place] [address] 05/14/2025 10:15 AM CDT Therapy Visit [address] [phone] Randy Maradiaga, DO [address] [place] [address] Delicia George, PT 150 [facility] [place] [place] [address] 05/14/2025 11:00 AM CDT Therapy Visit [address] [phone] Bindu Bueno, OD [address] [place] [address] Rubi Johnson, OT [facility] 150 [place] [address] 06/01/2025 11:15 AM CDT Appointment [facility] Imaging [address] [place] [address] [place] [phone] Robin Zepeda MD [address] [place] [address] 360745 06/02/2025 2:20 PM CDT Virtual Visit [facility] [address] [phone] Robin Zepeda MD [address] [place] [address] 07/01/2025 12:00 PM CDT Virtual Visit [facility] Rehabilitation Clinic [address] [phone] [place], PA-C [address] [place] [address] 235245 08/03/2025 4:30 PM MANUFACTURING ASSOCIATE Virtual Visit [facility] [address] [phone] Any Joiner MD [address] [place] [address] 492685 documented as of this encounter Visit Diagnoses Not on filedocumented in this encounter Additional Health Concerns Assessment Noted Time PHQ-9 Depression Total Score: 11 025 11:39 AM CDT documented as of this encounter Care Teams Metal Mold Dresser Relationship Specialty Start Date End Date Winston Villatoro OD [facility] [place] [address] [place] [address] PCP - Ophthalmology Ophthalmology 02/11/13 Denise Woodson APRN MS SQL DBA [address] [place] [address] PCP - General Family Practice 09/21/20 Denise Woodson APRN MS SQL DBA [address] [place] [address] Assigned PCP 07/17/20 Usha Simon APRN MS SQL DBA 909 [facility]2[place], [place] [address] Nurse Practitioner Neurological Surgery 01/24/24 Dangelo Salinas MD [address] [place] [address] Neurology 01/27/24 Joya Lira [facility] [address] [place] [address] Pharmacist Pharmacist 05/25/24 Joya Lira [facility] [address] [place] [address] Assigned MTM Pharmacist 06/08/24 Fabi Coates MD [address] [place] [address] 75 [place] [address] Genetics, Clinical 06/18/24 Arthur Salas LICSW [address] [place] [address] Assigned Behavioral Health Provider 08/08/24 Randy Maradiaga DO 909 [place] [address] Assigned Neuroscience Provider 08/08/24 Tete Wang MD [address] [place] [address] Genetics, Clinical 10/30/24 Dahlia Joyce MD 909 [place] [address] Radiology Neuroradiology 11/17/24 Lisa Zambrano MD 6405 [facility] [address] [place] [address] Assigned Heart and Vascular Provider 12/06/24 Tete Wang MD [address] [place] [address] Assigned Pediatric Specialist Provider 01/06/25 documented as of this encounter
--- OUTSIDE RECORDS SUMMARY | 2025-03-09 12:27 | XMS_ITS | Encounter Summary ---
Author Organization [employer] Address [address] [place] [address] Care Team Providers Care Sorter Pricer Name Role Phone Winston Villatoro OD Unavailable [phone] Denise Woodson APRN DRAFTING DETAILER Unavailable +[phone] Denise Woodson APRN DRAFTING DETAILER Primary Care Provider Usha Simon APRN DRAFTING DETAILER Unavailable + [phone] Dangelo Salinas MD Unavailable Joya Lira [facility] Unavailable +[phone] Joya Lira [facility] Unavailable +[phone] Fabi Coates MD Unavailable [phone] Arthur Salas NURSING PROGRAM COORDINATOR Unavailable +[phone] Randy Maradiaga DO Unavailable + Tete Wang MD Unavailable +[phone] Dahlia Joyce MD Unavailable +[phone] Lisa Zambrano MD Unavailable +- [phone] Tete Wang MD Unavailable +[phone] Reason for Visit * Reason Onset Date Comments Symptoms 01/27/2025 Encounter Details Date Type Department Care Team (Late st Contact Info) Description 01/27/2025 General acute hospital [facility] [address] [address] Any Joiner MD 420 [facility] 276 [place], [place] 8[address] Symptoms Social History Tobacco Use Types Packs/Day Years [...] Answer Date Recorded PHQ-2 Score 3 01/25/2025 [facility] of Occupat ional Health - Occupational [...] on file Legal Sex Female 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 AM PROFESSIONAL SERVICES MANAGER Gender Identity Not on file Sexual Orientation Not on file 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 Symptoms have been present for: 2 day(s) Has patient previously been seen for this? Yes By : Dr. Joiner Date: 01/19/25 Are there any new or worsening symptoms? Yes: Cough Action Taken: Other: Pulm Travel Screening: Not Applicable Date of Service: 01/27/25 documented in this encounter Plan of Treatment Upcoming Encounters Date Type Department Care Team (Late st Contact Info) Description 03/16/2025 8:00 AM CDT Virtual Visit [address] [phone] Bindu Bueno, OD 909 [place], [place] 4[address] Rubi Johnson, OT [address] 447[address] 03/26/2025 12:45 PM CDT Therapy Visit [address] [phone] BuenoBindu flores, OD 909 [place], [place] 279505 Rubi Johnson, OT [address] 863797 04/02/2025 9:30 AM CDT Therapy Visit [address] [phone] Randy Maradiaga, DO 909 [place] [address] Delicia George, PT 150 [place], [place] 7[address]67 04/06/2025 11:00 AM CDT [facility] 150 [place] [phone] BuenoBindu flores, OD 909 [place] [address] Rubi Johnson, OT [address] [address] 04/06/2025 12:30 PM CDT Therapy Visit [address] [phone] Randy Maradiaga, DO 909 [place] [address] Delicia George, PT 150 [place] [address] 04/16/2025 11:00 AM CDT Therapy Visit [address] [phone] BuenoBindu, OD 909 [place] [address] Rubi Johnson, OT [address] [address] 04/23/2025 12:45 PM CDT Therapy Visit [address] [phone] BuenoBindu, OD 909 [place] [address] Rubi Johnson, OT FV [address] [address] 04/23/2025 2:00 PM CDT Therapy Visit [address] [phone] Randy Maradiaga, DO [address] [place] [address] Delicia George, PT [address] [address] [facility] [address] 04/30/2025 10:15 AM CDT Therapy Visit [address] [phone] Randy Maradiaga, DO 9 [place] [address] Delicia George, PT [address] [address] 05/04/2025 11:00 AM CDT Virtual Visit [address] [phone] Bindu Bueno, OD 909 [place] [address] Rubi Johnson, OT FV [address] [address] 05/07/2025 10:15 AM CDT Therapy Visit [address] [phone] Randy Maradiaga, DO 909 [place], [place] [address] Delicia George, PT 150 [place] [address] 05/14/2025 10:15 AM CDT [facility] 150 [place] [phone] Randy Maradiaga, DO 909 [place], [place] 560[address] Delicia George, PT [address] [facility] [place] [address] 05/14/2025 11:00 AM CDT Therapy [facility] 150 [place] [phone] Bindu Bueno, OD 909 [place], [place] 578245 Rubi Johnson, [address] [address] 06/01/2025 11:15 AM CDT Appointment [facility] Imaging [address] [place] [phone] Robin Zepeda MD [address] [place], [place] [address]J [place] [address] 06/02/2025 2:20 PM CDT Virtual Visit [facility] [address] 3rd [place] [phone] Robin Zepeda MD [address] [place] [address] [id number] [place] [address] 07/01/2025 12:00 PM CDT Virtual Visit [facility] Physical Medicine [facility] Rehabilitation Clinic [address] 3rd [place] [phone] Santa Menon, PA-C [address] [place] [address] 08/03/2025 4:30 PM PROFESSIONAL SERVICES MANAGER Virtual Visit [facility] [address] [phone] Any Joiner MD [address] [place] [address] 276 [place], [place] 0[address] documented as of this encounter Visit Diagnoses Diagnosis BPD (bronchopulmonary dysplasia) (H)- Primary Chronic respiratory disease arising in the period documented in this encounter Additional Health Concerns Assessment Noted Time PHQ-9 Depression Total Score: 11 025 11:39 AM CDT documented as of this encounter Care Teams Sorter Pricer Relationship Specialty Start Date End Date Winston Villatoro OD [facility] 701 [facility] [address] [place] [address] PCP - Ophthalmology Ophthalmology 02/11/13 Denise Woodson APRN DRAFTING DETAILER [address] [address] PCP - General Family Practice 09/21/20 Denise Woodson APRN DRAFTING DETAILER [address] [address] Assigned PCP 07/17/20 Usha Simon APRN DRAFTING DETAILER 909 [facility] [id number] [place] [address] Nurse Practitioner Neurological Surgery 01/24/24 Dangelo Salinas MD [address] [place], [place] [id number] Neurology 01/27/24 Joya Lira [facility] [address] [place] [address] Pharmacist Pharmacist 05/25/24 Joya Lira [facility] [address] [place] [address] Assigned MTM Pharmacist 06/08/24 Fabi Coates MD 420 [facility] 75 [place] [address] Genetics, Clinical 06/18/24 Arthur Salas, [facility] [address] [place] [address] Assigned Behavioral Health Provider 08/08/24 Randy Maradiaga DO 9 [place] [address] Assigned Neuroscience Provider 08/08/24 Tete Wang MD 2450 [place] [address] Genetics, Clinical 10/30/24 Dahlia Joyce MD [address] [place] [address] Radiology Neuroradiology 11/17/24 Lisa Zambrano MD 6405 [facility] [address] [place] [address] 646535 Assigned Heart and Vascular Provider 12/06/24 Tete Wang MD 2450 [place], [place] 819124 Assigned Pediatric Specialist Provider 01/06/25 documented as of this encounter
--- OUTSIDE RECORDS SUMMARY | 2025-03-09 12:27 | XMS_ITS | Encounter Summary ---
Author Organization [employer] Address [address] [place] [address] Care Team Providers Care Loss Prevention Consultant Name Role Phone Winston Villatoro OD Unavailable [phone] Denies Woodson APRN EXHIBIT PREPARATOR Unavailable +[phone] Denise Woodson APRN EXHIBIT PREPARATOR Primary Care Provider Usha Simon APRN EXHIBIT PREPARATOR Unavailable + [phone] Dangelo Salinas MD Unavailable Joya Lira [facility] Unavailable [phone] Joya Lira [facility] Unavailable +[phone] Fabi Coates MD Unavailable [phone] Sinyigaya, Arthur AUTOMATION ENGINEERING TECHNICIAN Unavailable [phone] Randy Maradiaga DO Unavailable + Tete Wang MD Unavailable +[phone] Dahlia Joyce MD Unavailable +[phone] Lisa Zambrano MD Unavailable +- [phone] Tete Wang MD Unavailable +[phone] Encounter Details Date Type Department Care Team (Latest Contact Info) Description 02/01/2025 Travel Social History Tobacco Use Types Packs/Day [...] re latives? 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 Gender Identity Not on file Sexual Orientation [...] Description 03/16/2025 8:00 AM CDT Virtual Visit [address] [phone] Bindu uBeno, OD 909 [place] [address] Rubi Johnson, OT VALARIE [address] 976897 03/26/2025 12:45 PM CDT Therapy Visit [address] [phone] Bindu Bueno, OD 909 [place] [address] Rubi Johnson, OT [address] [address] 04/02/2025 9:30 AM CDT Therapy Visit [address] [phone] Randy Maradiaga, DO [address] [place] [address] 738105 Delicia George, PT 150 [facility] [place] [address] 04/06/2025 11:00 AM CDT Virtual Visit [address] [phone] BuenoBindu, OD 909 [place] [address] Rubi Johnson, OT [address] [address] 04/06/2025 12:30 PM CDT Therapy Visit [address] [phone] Randy aMradiaga, DO [address] [place] [address] 775005 Delicia George, PT 150 [place], [place] 3[address]37 04/16/2025 11:00 AM CDT Therapy Visit [facility] 150 [place] [phone] Bindu Bueno, OD 909 [place] [address] Rubi Johnson, OT [address] [address] 04/23/2025 12:45 PM CDT Therapy Visit [address] [phone] Bindu Bueno, OD 909 [place] [address] Rubi Johnson, OT [address] [address] 04/23/2025 2:00 PM CDT Therapy Visit [address] [phone] Randy Maradiaga, DO [address] [place] [address] 645345 Delicia George, PT 150 [place] [address] 04/30/2025 10:15 AM CDT Therapy Visit [address] [phone] Randy Maradiaga, DO [address] [place] [address] 354255 Delicia George, PT 150 [place] [address] 05/04/2025 11:00 AM CDT Virtual Visit [address] [phone] Bindu Bueno, OD 909 [place] [address] Rubi Johnson, OT [address] [address] 05/07/2025 10:15 AM CDT Therapy Visit [address] [phone] Randy Maradiaga, DO [address] [place] [address] Delicia George, PT 150 [facility] [place] [address] 05/14/2025 10:15 AM CDT Therapy Visit [address] [phone] Randy Maradiaga, DO [address] [place] [address] eDlicia George, PT 150 [facility] [place] [address] 05/14/2025 11:00 AM CDT Therapy Visit [address] [phone] Bindu Bueno, OD [address] [place] [address] Rubi Johnson, OT [facility] 150 [place] [address] 06/01/2025 11:15 AM CDT Appointment [facility] Imaging [address] [place] [phone] Robin Zepeda MD [address] [place] [address] 341845 06/02/2025 2:20 PM CDT Virtual Visit [facility] [address] [phone] Robin Zepeda MD [address] [place] [address] 07/01/2025 12:00 PM CDT Virtual Visit [facility] [address] [phone] Santa Menon, PA-C [address] [place] [address] 584845 08/03/2025 4:30 PM WAITER/WAITRESS BAR Virtual Visit [facility] [address] [phone] Any Joiner MD [address] [place] [address] 539275 documented as of this encounter Visit Diagnoses Not on filedocumented in this encounter Additional Health Concerns Assessment Noted Time PHQ-9 Depression Total Score: 11 025 11:39 AM CDT documented as of this encounter Care Teams Loss Prevention Consultant Relationship Specialty Start Date End Date Winston Villatoro OD [facility] [place] [address] [place] [address] PCP - Ophthalmology Ophthalmology 02/11/13 Denise Woodson APRN EXHIBIT PREPARATOR [address] [place] [address] PCP - General Family Practice 09/21/20 Denise Woodson APRN EXHIBIT PREPARATOR [address] [place] [address] Assigned PCP 07/17/20 Usha Simon APRN EXHIBIT PREPARATOR 909 [facility], [place] [address] Nurse Practitioner Neurological Surgery 01/24/24 Dangelo Salinas MD [address] [place] [address] Neurology 01/27/24 Joya Lira [facility] [address] [place] [address] Pharmacist Pharmacist 05/25/24 Joya Lira [facility] [address] [place] [address] Assigned MTM Pharmacist 06/08/24 Fabi Coates MD [address] [place] [address] 75 [place] [address] Genetics, Clinical 06/18/24 Arthur Salas [facility] [address] [place] [address] Assigned Behavioral Health Provider 08/08/24 Randy Maradiaga DO 909 [place] [address] Assigned Neuroscience Provider 08/08/24 Tete Wang MD [address] [place] [address] Genetics, Clinical 10/30/24 Dahlia Joyce MD 909 [place] [address] Radiology Neuroradiology 11/17/24 Lisa Zambrano MD 6405 [facility] [address] [place] [address] Assigned Heart and Vascular Provider 12/06/24 Tete Wang MD [address] [place] [address] Assigned Pediatric Specialist Provider 01/06/25 documented as of this encounter
--- OUTSIDE RECORDS SUMMARY | 2025-03-09 12:27 | XMS_ITS | Encounter Summary ---
Author Organization [employer] Address [address] [place] [address] Care Team Providers Care Business Mgr Name Role Phone Shauna Winston Se OD Unavailable [phone] Denise Woodson APRN KNIT GOODS PRESS HAND Unavailable [phone] Denise Woodson APRN KNIT GOODS PRESS HAND Primary Care Provider Usha Simon APRN KNIT GOODS PRESS HAND Unavailable + [phone] Dangelo Salinas MD Unavailable Usha Simon APRN KNIT GOODS PRESS HAND Unavailable Anastasia Stearns RN Unavailable Germaine Aleman [facility] Unavailable [phone] Robin Zepeda MD Unavailable Lisa Zambrano MD Unavailable Raul Hoyos MD Unavailable [phone] Joya Lira [facility] Unavailable +[phone] Joya Lira Joleen Unavailable Fabi Coates MD Unavailable [phone] Robin Zepeda MD Unavailable Danna Cardenas PA-C Unavailable +[phone] Felicita Desai RN Unavailable Unavailab Arthur Rios Unavailable +[phone] LaronRandy bucio Yobany MARTIN Unavailable + Tete Wang MD Unavailable [phone] Dahlia Joyce MD Unavailable [phone] Lisa Zambrano MD Unavailable + [phone] Tete Wang MD Unavailable +[phone] Any Joiner MD Unavailable [phone] Encounter Details Date Type Department Care Team (Late Contact Info) Description 01/29/2024 MyC Medical Advice [address] [phone] Danya Restrepo, VENDETTE Social History Tobacco Use Types Packs/Day Years [...] on file 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 Gender Identity Not on file Sexual Orientation Not on file 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 Not on file Not on file Not on file Not on file Not on file Not on file documented as of this encounter Plan of Treatment Upcoming Encounters Date Type Department Care Team (Late Contact Info) Description 03/16/2025 8:00 AM CDT Virtual Visit [facility] 150 [place] [phone] Bindu Bueno, OD [address]09 [place] [address] Rubi Johnson, OT [facility] 150 [place], [place] 564[address] 03/26/2025 12:45 PM CDT Therapy Visit [address] [phone] Bindu Bueno, OD 909 [place] [address] Rubi Johnson, OT [address] [address] 04/02/2025 9:30 AM CDT Therapy Visit [address] [phone] Randy Maradiaga, DO [address] [place] [address] 053645 Delicia George, PT 150 [place] [address] 04/06/2025 11:00 AM CDT Virtual Visit [address] [phone] Bindu Bueno, OD 909 [place] [address] Rubi Johnson, OT [address] [address] 04/06/2025 12:30 PM CDT Therapy Visit [address] [phone] Randy Maradiaga, DO [address] [place] [address] 269575 Delicia George, PT 150 [place] [address] 04/16/2025 11:00 AM CDT Therapy Visit [address] [phone] Bindu Bueno, OD 909 [place] [address] Rubi Johnson, OT [address] [address] 04/23/2025 12:45 PM CDT Therapy Visit [address] [phone] Bindu Bueno, OD 909 [place] [address] Rubi Johnson, OT [address] [address] 04/23/2025 2:00 PM CDT Therapy Visit [address] [phone] Randy Maradiaga, DO 909 [place] [address] Delicia George, PT 150 [place] [address] 04/30/2025 10:15 AM CDT Therapy Visit [address] [place] [address]4 Randy Maradiaga, DO [address] [place] [address] Delicia George, PT 150 [facility] [place] [address] 05/04/2025 11:00 AM CDT Virtual Visit [address] [phone] Bindu Bueno, OD [address] [place] [address] 436415 Rubi Johnson, OT [address] [address] 05/07/2025 10:15 AM CDT Therapy Visit [address] [phone] Randy Maradiaga, DO [address] [place] [address] Delicia George, PT 150 [facility] [address] 05/14/2025 10:15 AM CDT Therapy Visit [address] [phone] Randy Maradiaga, DO [address] [place] [address] Delicia George, PT 150 [facility] [place] [address] 05/14/2025 11:00 AM CDT Therapy Visit [facility] [address] [phone] BuenoBindu flores, OD 909 [place] [address] Rubi Johnson, OT [address] [address] 06/01/2025 11:[address] [facility] Imaging [address] [place] [phone] Robin Zepeda MD [address] [place] [address] 968035 06/02/2025 2:20 PM CDT Virtual Visit [facility] Neurosurgery [address] [phone] Robin Zepeda MD [address] [place] [address] 738865 07/01/2025 12:00 PM CDT Virtual Visit [facility] [address] [phone] Santa Menon, PA-C [address] [place] [address] 033885 08/03/2025 4:30 PM CARBON ACCOUNTANT Virtual Visit [facility] [address] [phone] Any Joiner MD [address] [place] [address] documented as of this encounter Visit Diagnoses Not on filedocumented in this encounter Additional Health Concerns Infection Onset Date Last Indicated Resolved Time Rule Out COVID-19 09/13/2024 09/13/2024 09/13/2024 12:31 PM CARBON ACCOUNTANT Rule Out COVID-19 11/14/2024 11/14/2024 11/14/2024 8:25 PM CARBON ACCOUNTANT Assessment Noted Time PHQ-9 Depression Total Score: 0 06/23/20 21 4:11 PM CDT documented as of this encounter Care Teams Business Mgr Relationship Specialty Start Date End Date Winston Villatoro OD [facility] [place] 701 [facility] [address] [place] [address] PCP - Ophthalmology Ophthalmology 02/11/13 Denise Woodson APRN KNIT GOODS PRESS HAND [address] [place] [address] PCP - General Family Practice 09/21/20 Denise Woodson APRN KNIT GOODS PRESS HAND [address] [place] [address] Assigned PCP 07/17/20 Usha Simon APRN KNIT GOODS PRESS HAND [address] [place] [address] Nurse Practitioner Neurological Surgery 01/24/24 Dangelo Salinas MD [address] [id number] Neurology 01/27/24 Usha Simon APRN KNIT GOODS PRESS HAND [address] [place] [address] 063935 Assigned Neuroscience Provider 02/06/24 03/07/24 Anastasia Stearns, RN Lead Development Chemist 02/06/24 12/17/24 Germaine Aleman, W Community Health Worker Primary Care - CC 02/18/2412/17/24 Robin Zepeda MD 909 [facility]2121[place] [address] Assigned Neuroscience Provider 03/08/24 05/07/24 Lisa Zambrano MD 6405 [facility] [address] [place] [address] Assigned Heart and Vascular Provider 05/08/24 07/07/24 Raul Hoyos MD 9 [facility]2121[place] [address] Assigned Neuroscience Provider 05/08/24 07/07/24 Joya Lira Joleen [address] [place] [address] Pharmacist Pharmacist 05/25/24 Joya Lira [facility] [address] [place] [address] Assigned MTM Pharmacist 06/08/24 Fabi Coates MD [address] [place] [address] 75 [place] [address] Genetics, Clinical 06/18/24 Robin Zepeda MD [address] [place], [place] [address] [address] Assigned Neuroscience Provider 07/08/24 08/07/24 Danna Cardenas PA-C [address] [facility] [address] [facility] [place] [address] Assigned Heart and Vascular Provider 07/08/24 12/05/24 Felicita Desai, RN Lead Development Chemist 07/14/24 07/28/24 Arthur Salas, [facility] [address] [place] [address] Assigned Behavioral Health Provider 08/08/24 Randy Maradiaga DO [address] [place] [address] Assigned Neuroscience Provider 08/08/24 Tete Wang MD [address] [place] [address] Genetics, Clinical 10/30/24 Dahlia Joyce MD [address] [place] [address] Radiology Neuroradiology 11/17/24 Lisa Zambrano MD 6405 [facility] [address] [place] [address] Assigned Heart and Vascular Provider 12/06/24 Tete Wang MD [address] [place] [address] Assigned Pediatric Specialist Provider 01/06/25 Any Joiner MD [address] [address] Assigned Pulmonology Provider 02/05/25 documented as of this encounter
--- OUTSIDE RECORDS SUMMARY | 2025-03-09 12:27 | XMS_ITS | Clinical Summary ---
Author Organization [facility] Address [address] [place] [address] Care Team Providers Care Asphalt Heater Operator Name Role Phone Keira Irvin MD [...] inhalerIndicatio ns:Mild persistent asthma with acute exacerbation (HC) Inhale 2 Puffs by mouth 4 times [...] Ellipta) 200mcg/25mcg inhalerIndicatio ns:BPD (bronchopulmonar y dysplasia) (HC) Inhale 1 Puff by mouth once daily. [...] bronchopulmonary dysplasia Cervical disc syndrome Fibromyalgia Immunizations Immunization Administration Dates Next Due COVID-19 vaccine ([facility] (EBTH) 30mcg/0.3mL) PF, MDV 07/07/2021 Hepatitis B, Unspecified [...] on file Legal Sex Female 5:27 AM PRESIDENT PRACTICING UROLOGIST Gender Identity Not on file Sexual Orientation [...] series ( season) 2024 07/07/2021, 11/20/2020 Influenza Vaccine (Season Ended) 2025 08/02/2022, 06/23/2021, 07/27/2020, Additional history exists Tetanus booster 01/04/2031 01/04/2021, 0511/2010, 04/05/2003, Additional history exists Pneumococcal series for age 6-49 Aged Out 03/16/2004 No longer eligible based on patient's age to complete this topic Hepatitis B series for 19+ Completed 03/03, 03/03/2012, 11/07/2011, Additional history exists Tdap Completed 01/04/2021, 01/26/2011 Procedures Procedure Name Priority Date/Time Associated Diagnosis Comments LIPID PANEL W REFLEX MEASURED LDL Routine 08/03/2011 10:31 AM PRESIDENT PRACTICING UROLOGIST Screening for other and unspecified cardiovascular conditions from Last 3 Months or Most Recently Relevant to Health Maintenance Results * LIPID PANEL W REFLEX MEASURED LDL (08/03/2011 10:31 AM PRESIDENT PRACTICING UROLOGIST) CHOLESTEROL,TOTAL 171 110 - 199 mg/dL [facility] TRIGLYCERIDES 67 <150 mg/dL [facility] HDL CHOLESTEROL 43 >40 mg/dL [facility] CHOL/HDL RATIO 3.98 <4.51 [facility] LDL CHOLESTEROL 115 <131 mg/dL [facility] PATIENT STATUS Fasting [facility] Blood specimen (specimen) BLOOD SPECIMEN / Unknown 08/03/2011 10:31 AM PRESIDENT PRACTICING UROLOGIST 08/03/2011 10:23 AM PRESIDENT PRACTICING UROLOGIST us Jasvir Pickens MD CHEMISTRY Final Re sult [facility] [address] [place], [place] [id number] from Last 3 Months or Most Recently Relevant to Health Maintenance Insurance MICHAELPRIMO [id number] Advance Directives * Full Code (Latest Code Status on File) Date Activated Date Inactivated Comments 01/09/2024 7:44 AM 01/09/2024 6:26 PM Question Answer Comments Code Status Discussion: Reviewed Preferences Care Teams Asphalt Heater Operator Relationship Specialty Start Date End Date Keira Irvin MD [address] [place] [address] PCP - General Family Practice 01/08/24
--- OUTSIDE RECORDS SUMMARY | 2025-03-09 12:28 | XMS_ITS | Encounter Summary ---
Author Organization [facility] Address [address] [place] [address] Care Team Providers Care Critical Care Nurse Practitioner Name Role Phone Yung Madrigal MD Unavailable Unavailable Winston Villatoro OD Unavailable [phone] Denise Woodson APRN ALL PURPOSE CLERK Unavailable [phone] Denise Woodson APRN ALL PURPOSE CLERK Primary Care Provider Usha Simon APRN ALL PURPOSE CLERK Unavailable Dangelo Salinas MD Unavailable Usha Simon APRN ALL PURPOSE CLERK Unavailable Anastasia Stearns RN Unavailable Germaine Aleman CHW Unavailable [phone] Robin Zepeda MD Unavailable Lisa Zambrano MD Unavailable Raul Hoyos MD Unavailable Joya Lira [facility] Unavailable [phone] Joya Lira RPJoleen Unavailable Fabi Coates MD Unavailable [phone] Robin Zepeda MD Unavailable [phone] Danna Cardenas PA-C Unavailable [phone] Felicita Desai RN Unavailable Unavailab Arthur RiosSW Unavailable [phone] Randy Maradiaga DO Unavailable + Tete Wang MD Unavailable [phone] Dahlia Joyce MD Unavailable [phone] Lisa Zambrano MD Unavailable + [phone] Tete Wang MD Unavailable +[phone] Any Joiner MD Unavailable [phone] Reason for Visit * Reason Comments Medication Refill Encounter Details Date Type Department Care Team (Late st Contact Info) Description 06/11/2021 Refill M [facility] [address] [facility] [address] [place] [address] Denise Woodson APRN [facility] [address] [place] [address] Medication Refill Social History Tobacco [...] on file 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 Gender Identity Not on file Sexual [...] Description 03/16/2025 8:00 AM CDT Virtual Visit [facility] Rehabilitation Services [address] [phone] Bindu Bueno, OD 909 [place] [address] Rubi Johnson, OT [facility] [address] [place], [place] [address] 03/26/2025 12:45 PM CDT [facility] 150 [place] [phone] Bindu Bueno, OD 909 [place] [address] Rubi Johnson, OT [address] [address] 04/02/2025 9:30 AM CDT Therapy Visit [address] [phone] Randy Maradiaga, DO 909 [place] [address] Delicia George, PT 150 [place] [address] 04/06/2025 11:00 AM CDT Virtual Visit [address] [phone] Bindu Bueno, OD [address] [place] [address] Rubi Johnson, OT [address] [address] 04/06/2025 12:30 PM CDT Therapy Visit [address] [phone] Randy Maradiaga, DO [address] [place] [address] Delicia George, PT [address] [place] [address] 04/16/2025 11:00 AM CDT Therapy Visit [address] [phone] Bindu Bueno, OD 909 [place], [place] [address] Rubi Johnson, OT [address] [address] 04/23/2025 12:45 PM CDT Therapy Visit [address] [phone] Bindu Bueno, OD 909 [place] [address] Rubi Johnson, OT [address] [address] 04/23/2025 2:00 PM CDT Therapy Visit [address] [phone] Randy Maradiaga, DO [address] [place] [address] Delicia George, PT [address] [place] [address] 04/30/2025 10:15 AM CDT Therapy Visit [address] [phone] Randy Maradiaga, DO 9[address] [place] [address] Delicia George, PT 150 [place] [address] 05/04/2025 11:00 AM CDT Virtual Visit [address] [phone] Bindu Bueno, OD 909 [place] [address] Rubi Johnson, OT [address] [address] 05/07/2025 10:15 AM CDT Therapy Visit [address] [phone] Randy Maradiaga, DO 909 [place] [address] Delicia George, PT 150 [place] [address] 05/14/2025 10:15 AM CDT Therapy Visit [address] [phone] Randy Maradiaga, DO 909 [place] [address] Delicia George, PT 150 [facility] [place], [place] [address] 05/14/2025 11:00 AM CDT Therapy Visit [facility] Rehabilitation Services [address] [phone] Bindu Bueno, OD [address] [place] [address] Rubi Johnson, OT [address] [address] 06/01/2025 11:15 AM CDT Appointment [facility] Imaging [address] [place] [phone] Robin Zepeda MD [address] [place] [address] 06/02/2025 2:20 PM CDT Virtual Visit [facility] Neurosurgery [address] [phone] Robin Zepeda MD [address] [place] [address] 07/01/2025 12:00 PM CDT Virtual Visit [facility] Physical Medicine and Rehabilitation [address] [phone] [place], PANilesC [address] [place] [address] 08/03/2025 4:30 PM ACQUISITION MARKETING COORDINATOR Virtual Visit [facility] [address] [place] [phone] Any Joiner MD [address] [facility] [address] [place], [place] 27[address] documented as of this encounter Visit Diagnoses Diagnosis Insomnia, unspecified type documented in this encounter Additional Health Concerns Infection Onset Date Last Indicated Resolved Time Rule Out COVID-19 09/13/2024 09/13/2024 09/13/2024 12:31 PM ACQUISITION MARKETING COORDINATOR Rule Out COVID-19 11/14/2024 11/14/2024 11/14/2024 8:25 PM ACQUISITION MARKETING COORDINATOR Assessment Noted Time PHQ-9 Depression Total Score: 0 01/05/20 9:31 AM CDT documented as of this encounter Care Teams Critical Care Nurse Practitioner Relationship Specialty Start Date End Date Yung Madrigal MD RETIRED PCP - Orthopaedics Orthopedics 08/26/12 01/20/24 Winston Villatoro OD [facility] [place] [address] [facility] [address] [place] [address] PCP - Ophthalmology Ophthalmology 02/11/13 Denise Woodson APRN ALL PURPOSE CLERK [address] [place] [address] PCP - General Family Practice 09/21/20 Denise Woodson APRN ALL PURPOSE CLERK [address] [place] [address] Assigned PCP 07/17/20 Usha Simon APRN ALL PURPOSE CLERK 9 [facility] [id number] [place] [address] Nurse Practitioner Neurological Surgery 01/24/24 Dangelo Salinas MD [address] [place] [address] Neurology 01/27/24 Usha Simon APRN ALL PURPOSE CLERK [address] [address] Assigned Neuroscience Provider 02/06/24 03/07/24 Anastasia Stearns, RN Lead Interactive Project Manager 02/06/24 12/17/24 Germaine Aleman, W Community Health Worker Primary Care - CC 02/18/2412/17/24 Robin Zepeda MD [address] [address] Assigned Neuroscience Provider 03/08/24 05/07/24 Lisa Zambrano MD [address] [facility] [address] [place] [address] Assigned Heart and Vascular Provider 05/08/24 07/07/24 Raul Hoyos MD [address] [address] Assigned Neuroscience Provider 05/08/24 07/07/24 Joya Lira RPH [address] [address] Pharmacist Pharmacist 05/25/24 Joya Lira RPH [address] [place] [address] Assigned MTM Pharmacist 06/08/24 Fabi Coates MD [address] [facility] 75 [place] [address] Genetics, Clinical 06/18/24 Robin Zepeda MD [address] [facility] [id number] [place] [address] Assigned Neuroscience Provider 07/08/24 08/07/24 Danna Cardenas PA-C [address] [place], [place] 489875 Assigned Heart and Vascular Provider 07/08/24 12/05/24 Felicita Desai RN Lead Interactive Project Manager 07/14/24 07/28/24 Arthur Salas [facility] [address] [place] [address] Assigned Behavioral Health Provider 08/08/24 Randy Maradiaga DO [address] [place] [address] Assigned Neuroscience Provider 08/08/24 Tete Wang MD [address] [place] [address] Genetics, Clinical 10/30/24 Dahlia Joyce MD [address] [place] [address] Radiology Neuroradiology 11/17/24 Lisa Zambrano MD [address] [facility] [address] [place], [place] [address] Assigned Heart and Vascular Provider 12/06/24 Tete Wang MD [address] [place] [address] Assigned Pediatric Specialist Provider 01/06/25 Any Joiner MD [address] [place] [address] Assigned Pulmonology Provider 02/05/25 documented as of this encounter
--- OUTSIDE RECORDS SUMMARY | 2025-03-09 12:28 | XMS_ITS | Encounter Summary ---
Author Organization [facility] Address [address] [place] [address] Care Team Providers Care House Superintendent Name Role Phone ShaunaTarikle Se OD Unavailable [phone] Denise Woodson APRN SALES FORCE ADMINISTRATOR Unavailable [phone] Denise Woodson APRN SALES FORCE ADMINISTRATOR Primary Care Provider Usha Simon APRN SALES FORCE ADMINISTRATOR Unavailable + [phone] Dangelo Salinas MD Unavailable Joya Lira RP Unavailable [phone] Joya Lira [facility] Unavailable [phone] Fabi Coates MD Unavailable [phone] [employer] JEWELRY DIPPER Unavailable [phone] Randy Maradiaga DO Unavailable + Tete Wang MD Unavailable [phone] Dahlia Joyce MD Unavailable [phone] Lisa Zambrano MD Unavailable + [phone] Tete Wang MD Unavailable [phone] Any Joiner MD Unavailable [phone] Encounter Details Date Type Department Care Team (Late st Contact Info) Description 12/31/2024 [facility] [address] [place] [address] Phoebe Del Cid Social History [...] How often do you attend synagogue or rastafarian serv ices? Never 09/16/2024 Do you belong [...] PHQ-2 Answer Date Recorded PHQ-2 Score 2 12/31/2024 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 Not on file Not on file Not on file Not on file Not on file Not on file documented as of this encounter Plan of Treatment Upcoming Encounters Date Type Department Care Team (Late st Contact Info) Description 03/16/2025 8:00 AM CDT Virtual Visit [facility] 150 [place] [phone] Bindu Bueno, OD 909 [place] [address] Rubi Johnson, OT [address] [address] 03/26/2025 12:45 PM CDT Therapy Visit [address] [phone] Bindu Bueno, OD 909 [place] [address] Rubi Johnson, OT [address] [address] 04/02/2025 9:30 AM CDT Therapy Visit [address] [phone] Randy Maradiaga, DO 909 [place] [address] Delicia George, PT 150 [place] [address] 04/06/2025 11:00 AM CDT Virtual Visit [address] [phone] BuenoMagaliBindu, OD 909 [place] [address] Rubi Johnson, OT [address] [address] 04/06/2025 12:30 PM CDT Therapy Visit [facility] 150 [place] [phone] Randy Maradiaga, DO [address] [place] [address] Delicia George, PT [address] [place] [address] 04/16/2025 11:00 AM CDT Therapy Visit [address] [phone] Magali Buenoissa, OD [address] [place] [address] Rubi Johnson, OT [address] [address] 04/23/2025 12:45 PM CDT Therapy Visit [address] [phone] Bindu Bueno, OD [address] [place] [address] Rubi Johnson, OT [address] [address] 04/23/2025 2:00 PM CDT Therapy Visit [address] [phone] Randy Maradiaga, DO [address] [place] [address] Delicia George, PT 150 [place] [address] 04/30/2025 10:15 AM CDT Therapy Visit [address] [phone] Randy Maradiaga, DO [address] [place] [address] 5438[address] Delicia George, PT 150 [place] [address] 05/04/2025 11:00 AM CDT Virtual Visit [address] [phone] Bindu Bueno, OD 9[address] [place], [place] 238[address] Rubi Johnson, OT [address] [address] 05/07/2025 10:15 AM CDT Therapy Visit [address] [phone] Randy Maradiaga, DO [address] [place] [address] Delicia George, PT 150 [place], [place] [address] 05/14/2025 10:15 AM CDT Therapy Visit [address] [phone] Randy Maradiaga, DO [address] [place] [address] Delicia George, PT 150 [facility] [place] [address] 05/14/2025 11:00 AM CDT Therapy Visit [facility] Rehabilitation Services [address] [phone] Bindu Bueno, OD 909 [place] [address] Rubi Johnson, OT [address] [address] 06/01/2025 11:15 AM CDT Appointment [facility] Center Imaging [address] [place] [phone] Robin Zepeda MD [address] [place] [address] 06/02/2025 2:20 PM CDT Virtual Visit [facility] Neurosurgery Clinic [address] [phone] Robin Zepeda MD [address] [place] [address] 07/01/2025 12:00 PM CDT Virtual Visit [facility] Physical Medicine and Rehabilitation Clinic [address] [phone] [place] [employer] [address] [place] [address] 08/03/2025 4:30 PM PAN WASHER Virtual Visit [facility] [place] 909 [place] [phone] Any Joiner MD 420 [facility] 276 [place] [address] documented as of this encounter Visit Diagnoses Not on filedocumented in this encounter Additional Health Concerns Assessment Noted Time PHQ-9 Depression Total Score: 9 12/18/19 25 9:40 AM CDT documented as of this encounter Care Teams House Superintendent Relationship Specialty Start Date End Date Winston Villatoro, [facility] [place] [address] [facility] [address] [place] [address] PCP - Ophthalmology Ophthalmology 02/11/13 Denise Woodson APRN SALES FORCE ADMINISTRATOR [address] [place] [address] PCP - General Family Practice 09/21/20 Denise Woodson APRN SALES FORCE ADMINISTRATOR [address] [facility] [address] Assigned PCP 07/17/20 Usha Simon APRN SALES FORCE ADMINISTRATOR 909 [facility] [id number] [place] [address] Nurse Practitioner Neurological Surgery 01/24/24 Dangelo Salinas MD [address] [place] [address] Neurology 01/27/24 Joya Lira RPH [address] [place] [address] Pharmacist Pharmacist 05/25/24 Joya Lira [facility] [address] [place] [address] Assigned MTM Pharmacist 06/08/24 Fabi Coates MD 420 [facility] 75 [place] [address] Genetics, Clinical 06/18/24 Arthur Salas, [facility] [address] [place] [address] Assigned Behavioral Health Provider 08/08/24 Randy Maradiaga DO [address]09 [place], [place] 47[address] Assigned Neuroscience Provider 08/08/24 Tete Wang MD [facility]0 [place], [place] [address] Genetics, Clinical 10/30/24 Dahlia Joyce MD [address] [place] [address] Radiology Neuroradiology 11/17/24 Lisa Zambrano MD [address] [facility] [address] [place] [address] Assigned Heart and Vascular Provider 12/06/24 Tete Wang MD [address] [place] [address] Assigned Pediatric Specialist Provider 01/06/25 Any Joiner MD [address] [place] [address] 276 [place] [address] Assigned Pulmonology Provider 02/05/25 documented as of this encounter
--- OUTSIDE RECORDS SUMMARY | 2025-03-09 12:28 | XMS_ITS | Encounter Summary ---
Author Organization [place] Address [address] [place] [address] Care Team Providers Care Artificial Breeding Distributor Name Role Phone Winston Villatoro OD Unavailable +[phone] Denise Woodson APRN AGENT BASED MODELER Unavailable +[phone] Denise Woodson APRN AGENT BASED MODELER Primary Care Provider Usha Simon APRN AGENT BASED MODELER Unavailable + [phone] Dangelo Salinas MD Unavailable Anastasia Stearns RN Unavailable +[phone] Germaine Aleman CHW Unavailable +[phone] Joya Lira RP Unavailable +[phone] Joya Lira [facility] Unavailable +[phone] Fabi Coates MD Unavailable [phone] SinArthur forbes SENIOR DEVOPS ENGINEER Unavailable +[phone] Randy Maradiaga DO Unavailable + Tete Wang MD Unavailable +[phone] Dahlia Joyce MD Unavailable +[phone] Lisa Zambrano MD Unavailable + [phone] Tete Wang MD Unavailable +[phone] Any Joiner MD Unavailable +[phone] Encounter Details Date Type Department Care Team (Late st Contact Info) Description 12/16/2024 MyC Medical Advice [facility] [address] [place] [address] Anamika Johns Social History Tobacco Use Types Packs/Day Years [...] Never 09/16/2024 How often do you attend cheondoism or sikh serv ices? 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 Not on file Not on file Not on file Not on file Not on file Not on file documented as of this encounter Plan of Treatment Upcoming Encounters Date Type Department Care Team (Late st Contact Info) Description 03/16/2025 8:00 AM CDT Virtual Visit [address] [phone] Bindu Bueno, OD 909 [place], [place] 437345 Rubi Johnson, [facility] [address] [place] [address] 03/26/2025 12:45 PM CDT Therapy Visit [facility] 150 [place] [phone] Bindu Bueno, OD 909 [place], [place] 198035 Ruib Johnson, OT [address] 971817 04/02/2025 9:30 AM CDT Therapy Visit [address] [phone] Randy Maradiaga, DO 909 [place] [address] Delicia George, PT 150 [facility] [place], [place] [address] 04/06/2025 11:00 AM CDT Virtual Visit [address] [phone] Bindu Bueno, OD 909 [place] [address] Rubi Johnson, OT [address] [address] 04/06/2025 12:30 PM CDT Therapy Visit [address] [phone] Randy Maradiaga, DO [address] [place] [address] Delicia George, PT 150 [place] [address] 04/16/2025 11:00 AM CDT Therapy Visit [address] [phone] Bindu Bueno, OD 909 [place], [place] 811605 Rubi Johnson, OT [address] [address] 04/23/2025 12:45 PM CDT Therapy Visit [address] [phone] Bindu Bueno, OD 909 [place] [address] Rubi Johnson, OT [address] [address] 04/23/2025 2:00 PM CDT Therapy Visit [address] [phone] Randy Maradiaga, DO [address] [place] [address] Delicia George, PT 150 [facility] [place] [place] [address] 04/30/2025 10:15 AM CDT Therapy Visit [address] [phone] Randy Maradiaga, DO [address] [place] [address] Delicia George, PT 150 [place] [address] 05/04/2025 11:00 AM CDT Virtual Visit [address] [phone] Bindu Bueno, OD 909 [place] [address] Rubi Johnson, OT [address] [address] 05/07/2025 10:15 AM CDT Therapy Visit [address] [phone] Randy Maradiaga, DO [address] [place] [address] Delicia George, PT 150 [place] [address] 05/14/2025 10:15 AM CDT Therapy Visit [address] [place] [address]979914 Randy Maradiaga, DO [address] [place] [address] Delicia George, PT 150 [facility] [place] [address] 05/14/2025 11:00 AM CDT Therapy Visit [facility] Rehabilitation Services [address] [phone] Bindu Bueno, OD [address] [place] [address] 916165 Rubi Johnson, [address] [address] 06/01/2025 11:15 AM CDT Appointment [facility] Imaging [address] [place] [address] [place] [phone] Robin Zepeda MD [address] [place] [address] 726205 06/02/2025 2:20 PM CDT Virtual Visit [facility] Neurosurgery Clinic [address] [phone] Robin Zepeda MD [address] [place] [address] 909445 07/01/2025 12:00 PM CDT Virtual Visit [facility] Physical Medicine and Rehabilitation Clinic [address] [phone] [place] [facility] [address] [place] [address] 08/03/2025 4:30 PM NAVAL INSPECTOR Virtual Visit [facility] Science and [facility] [place] 909 [place] [phone] Any Joiner MD 420 [facility] 276 [place], [place] 176215 documented as of this encounter Visit Diagnoses Not on filedocumented in this encounter Additional Health Concerns Assessment Noted Time PHQ-9 Depression Total Score: 0 09/18/19 25 12:46 PM NAVAL INSPECTOR documented as of this encounter Care Teams Artificial Breeding Distributor Relationship Specialty Start Date End Date Winston Villatoro OD [facility] [place] [address] [facility] [address] [place], [place] 1998366 PCP - Ophthalmology Ophthalmology 02/11/13 Denise Woodson APRN AGENT BASED MODELER [address] [place] [address] PCP - General Family Practice 09/21/20 Denise Woodson APRN AGENT BASED MODELER [address] [place] [address] Assigned PCP 07/17/20 Usha Simon APRN AGENT BASED MODELER [address] [place] [address] [id number] [place] [address] Nurse Practitioner Neurological Surgery 01/24/24 Dangelo Salinas MD [address] [place] [address] Neurology 01/27/24 Anastasia Stearns, RN Lead Commercial Drone Pilot 02/06/24 12/17/24 Ash, Germaine C, [facility] Community Health Worker Primary Care - CC 02/18/2412/17/24 Joya Lira [facility] [address] [place] [address] Pharmacist Pharmacist 05/25/24 Joya Lira [facility] [address] [place] [address] Assigned MTM Pharmacist 06/08/24 Fabi Coates MD [address] [place] [address] 75 [place], [place] 598155 Genetics, Clinical 06/18/24 Arthur Salas, [facility] [address] [place] [address] Assigned Behavioral Health Provider 08/08/24 Randy Maradiaga DO 909 [place], [place] 484675 Assigned Neuroscience Provider 08/08/24 [place] [address] [place] [address] 012674 Genetics, Clinical 10/30/24 Dahlia Joyce MD [address] [place] [address] 173665 Radiology Neuroradiology 11/17/24 Lisa Zambrano MD 6405 [facility] [address] [place] [address] Assigned Heart and Vascular Provider 12/06/24 Tete Wang MD 2450 [place], [place] 483834 Assigned Pediatric Specialist Provider 01/06/25 Any Joiner MD [address] [place] [address] 276 [place], [place] 838295 Assigned Pulmonology Provider 02/05/25 documented as of this encounter
--- OUTSIDE RECORDS SUMMARY | 2025-03-09 12:28 | XMS_ITS | Encounter Summary ---
Author Organization [place] Address [address] [place] [address]18 Care Team Providers Care Hydraulic Punch Press Operator Name Role Phone ShaunaWinston OD Unavailable [phone] Denise Woodson APRN FAMILY CENTERED SPECIALIST Unavailable +[phone] Denise Woodson APRN FAMILY CENTERED SPECIALIST Primary Care Provider Usha Simon APRN FAMILY CENTERED SPECIALIST Unavailable + [phone] Dangelo Salinas MD Unavailable Joya Lira RP Unavailable +[phone] Joya Lira [facility] Unavailable +[phone] Fabi Coates MD Unavailable [phone] Sinyigaya, Specmadi OPHTHALMIC ASSISTANT Unavailable +[phone] Randy Maradiaga DO Unavailable + Tete Wang MD Unavailable +[phone] Dahlia Joyce MD Unavailable +[phone] Lisa Zambrano MD Unavailable + [phone] Tete Wang MD Unavailable +[phone] Any Joiner MD Unavailable +[phone] Encounter Details Date Type Department Care Team (Late st Contact Info) Description 01/14/2025 [facility] Neurology Clinic [address] [phone] Xochilt Mancuso Ada, [address] [place] [id number] Social History Tobacco Use Types Packs/Day Years [...] Never 09/16/2024 How often do you attend lutheran or tenriism serv ices? 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 MONITORING COORDINATOR Gender Identity Not on file Sexual [...] Description 03/16/2025 8:00 AM CDT Virtual Visit [address] [phone] Bindu Bueno, OD 909 [place], [place] 875115 Rubi Johnson, OT [address] [address] 03/26/2025 12:45 PM CDT Therapy Visit [address] [phone] Bindu Bueno, OD 909 [place], [place] 216645 Rubi Johnson, OT [address] 281717 04/02/2025 9:30 AM CDT Therapy Visit [address] [phone] Randy Maradiaga, DO 909 [place] [address] Delicia George, PT 150 [place], [place] 141667 04/06/2025 11:00 AM CDT Virtual Visit [address] [phone] Bindu Bueno, OD 909 [place] [address] Rubi Johnson, OT [address] 688677 04/06/2025 12:30 PM CDT Therapy Visit [address] [phone] Randy Maradiaga, DO 909 [place] [address] Delicia George, PT 150 [place] [address] 04/16/2025 11:00 AM CDT Therapy Visit [address] [phone] Bindu Bueno, OD 909 [place], [place] 804105 Rubi Johnson, OT [address] [address] 04/23/2025 12:45 PM CDT Therapy Visit [address] [phone] Bindu Bueno, OD 909 [place] [address] Rubi Johnson, OT [address] [address] 04/23/2025 2:00 PM CDT Therapy Visit [address] [phone] Randy Maradiaga, DO 909 [place] [address] Delicia George, PT 150 [facility] 746597 04/30/2025 10:15 AM CDT Therapy Visit [address] [phone] Randy Maradiaga, DO [address] [place] [address] Delicia George, PT 150 [facility] [place] [address] 05/04/2025 11:00 AM CDT Virtual Visit [address] [phone] Bindu Bueno, OD 909 [place] [address] Rubi Johnson, OT [address] [address] 05/07/2025 10:15 AM CDT Therapy Visit [address] [phone] Randy Maradiaga, DO [address] [place] [address] Delicia George, PT 150 [place] [address] 05/14/2025 10:15 AM CDT Therapy Visit [address] [phone] Randy Maradiaga, DO [address] [place] [address] Delicia George, PT 150 [facility] [place] [address] 05/14/2025 11:00 AM CDT Therapy Visit [facility] [address] [phone] Bindu Bueno, OD 909 [place], [place] 690425 Rubi Johnson, [address] [address] 06/01/2025 11:[address] [facility] Specialty Care Center Imaging [address] [place] [phone] Robin Zepeda MD [address] [place] [address] 489005 06/02/2025 2:20 PM CDT Virtual Visit [facility] Neurosurgery Clinic [address] [phone] Robin Zepeda MD [address] [place] [address] 184765 07/01/2025 12:00 PM CDT Virtual Visit [facility] Physical Medicine and Rehabilitation Clinic [address] [phone] [place], PA-C [address] [place] [address] 278445 08/03/2025 4:30 PM MONITORING COORDINATOR Virtual Visit [facility] Science and Health Clinic [place] 909 [place] [phone] Any Joiner MD 420 [facility] 276 [place], [place] 642145 documented as of this encounter Visit Diagnoses Not on filedocumented in this encounter Additional Health Concerns Assessment Noted Time PHQ-9 Depression Total Score: 7 01/08/20 25 8:00 AM CDT documented as of this encounter Care Teams Hydraulic Punch Press Operator Relationship Specialty Start Date End Date Winston Villatoro OD [facility] [place] [address] [facility] [address] [place] [address] PCP - Ophthalmology Ophthalmology 02/11/13 Denise Woodson APRN FAMILY CENTERED SPECIALIST [address] [place] [address] PCP - General Family Practice 09/21/20 Denise Woodson APRN FAMILY CENTERED SPECIALIST [address] [place] [address] Assigned PCP 07/17/20 Usha Simon APRN FAMILY CENTERED SPECIALIST 909 [facility] [id number] [place] [address] Nurse Practitioner Neurological Surgery 01/24/24 Dangelo Salinas MD [address] [place], [place] [address] Neurology 01/27/24 Joya Lira RPH [address] [place] [address] Pharmacist Pharmacist 05/25/24 Soraya Joya, [facility] [address] [place] [address] Assigned MTM Pharmacist 06/08/24 Fabi Coates MD [address] [place] [address] 75 [place] [address] Genetics, Clinical 06/18/24 Arthur Salas OPHTHALMIC ASSISTANT [address] [place] [address] Assigned Behavioral Health Provider 08/08/24 Randy Maradiaga DO [address] [place] [address] 173845 Assigned Neuroscience Provider 08/08/24 Tete Wang MD [address] [place] [address] 379414 Genetics, Clinical 10/30/24 Dahlia Joyce MD [address] [place] [address] Radiology Neuroradiology 11/17/24 Lisa Zambrano MD 6405 [facility] [address] [place] [address] Assigned Heart and Vascular Provider 12/06/24 Tete Wang MD [address] [place] [address] Assigned Pediatric Specialist Provider 01/06/25 Any Joiner MD [address] [place] [address] Assigned Pulmonology Provider 02/05/25 documented as of this encounter
--- OUTSIDE RECORDS SUMMARY | 2025-03-09 12:28 | XMS_ITS | Encounter Summary ---
Author Organization [place] Address [address] [place] [address] Care Team Providers Care Records Management Engineer Name Role Phone ShaunaWinston OD Unavailable [phone] Denise Woodson APRN STRADDLE BUG DRIVER Unavailable +[phone] Denise Woodson APRN STRADDLE BUG DRIVER Primary Care Provider Usha Simon APRN STRADDLE BUG DRIVER Unavailable + [phone] Dangelo Salinas MD Unavailable Joya Lira RP Unavailable +[phone] Joya Lira [facility] Unavailable +[phone] Fabi Coates MD Unavailable [phone] SinyigayaArthur TIN CUTTER Unavailable +[phone] Randy Maradiaga DO Unavailable + Tete Wang MD Unavailable +[phone] Dahlia Joyce MD Unavailable +[phone] Lisa Zambrano MD Unavailable + [phone] Tete Wang MD Unavailable +[phone] Any Joiner MD Unavailable +[phone] Encounter Details Date Type Department Care Team (Late st Contact Info) Description 01/14/2025 [facility] Neurology Clinic [address] [place] [address] Randy Maradiaga, DO 909 [place] [address] Social History Tobacco Use Types [...] Never 09/16/2024 How often do you attend anabaptism or evangelical serv ices? 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 Gender Identity Not on file [...] 03/16/2025 8:00 AM CDT Virtual Visit [address] [phone] Bindu Bueno, OD 909 [place], [place] 881825 Rubi Johnson, OT [facility] [place] 150 [place] [address] 03/26/2025 12:45 PM CDT Therapy Visit [facility] [place] 150 [place] [phone] Bindu Bueno, OD 909 [place], [place] 980905 Rubi Johnson, OT [address] 168007 04/02/2025 9:30 AM CDT [facility] [address] [place] [address] [phone] Randy Maradiaga, DO 909 [place] [address] Delicia George, PT 150 [place], [place] 367837 04/06/2025 11:00 AM CDT [facility] 150 [place] [phone] Bindu Bueno, OD 909 [place] [address] Rubi Johnson, OT [facility] 150 [place], [place] 275637 04/06/2025 12:30 PM CDT Therapy Visit [address] [phone] Randy Maradiaga, DO 909 [place], [place] 421785 Delicia George, PT 150 [facility] [place] [address] 04/16/2025 11:00 AM CDT Therapy Visit [address] [phone] Myles Bindu, OD 909 [place], [place] 095745 Rubi Johnson, OT [address] [address] 04/23/2025 12:45 PM CDT Therapy Visit [address] [phone] Bindu Bueno, OD 909 [place], [place] 216975 Rubi Johnson, OT [address] [address] 04/23/2025 2:00 PM CDT Therapy Visit [address] [phone] Randy Maradiaga, DO 909 [place] [address] Delicia George, PT 150 [place] [address] 04/30/2025 10:15 AM CDT Therapy Visit [address] [phone] Randy Maradiaga, DO [address] [place] [address] Delicia George, PT 150 [facility] [place] [address] 05/04/2025 11:00 AM CDT Virtual Visit [address] [phone] Bindu Bueno, OD 909 [place] [address] Rubi Johnson, [address] [address] 05/07/2025 10:15 AM CDT Therapy Visit [address] [phone] Randy Maradiaga, DO [address] [place] [address] Delicia George, PT 150 [facility] [place] [address] 05/14/2025 10:15 AM CDT Therapy Visit [address] [place] [phone] Randy Maradiaga, DO [address] [place] [address] Delicia George, PT 150 [place] [address] 05/14/2025 11:00 AM CDT Therapy Visit [facility] [address] [phone] Bindu Bueno, OD 9 [place], [place] 846155 Rubi Johnson, OT [address] 262697 06/01/2025 11:15 AM CDT Appointment [facility] Specialty Care Center Imaging [address] [place] [phone] Robin Zepeda MD [address] [place] [address] 414155 06/02/2025 2:20 PM CDT Virtual Visit [facility] [address] [phone] Robin Zepeda MD [address] [place] [address] 099705 07/01/2025 12:00 PM CDT Virtual Visit [facility] [address] [phone] Santa [place] PA-C [address] [place] [address] 08/03/2025 4:30 PM LOCKER ROOM MANAGER Virtual Visit [facility] [place] 909 [place] [phone] Any Joiner MD 420 [facility] 276 [place], [place] [address] documented as of this encounter Visit Diagnoses Not on filedocumented in this encounter Additional Health Concerns Assessment Noted Time PHQ-9 Depression Total Score: 7 01/08/20 25 8:00 AM CDT documented as of this encounter Care Teams Records Management Engineer Relationship Specialty Start Date End Date Winston Villatoro OD [facility] [place] [address] [place] [address] PCP - Ophthalmology Ophthalmology 02/11/13 Denise Woodson APRN STRADDLE BUG DRIVER [address] [place] [address] PCP - General Family Practice 09/21/20 Denise Woodson APRN STRADDLE BUG DRIVER [address] [place] [address] Assigned PCP 07/17/20 Usha Simon APRN STRADDLE BUG DRIVER [address] [place] [address] [id number] [place] [address] Nurse Practitioner Neurological Surgery 01/24/24 Dangelo Salinas MD [address] [place] [address] Neurology 01/27/24 Joya Lira [facility] [address] [facility] [place] [address] Pharmacist Pharmacist 05/25/24 SorayaJoya [facility] [address] [place] [address] Assigned MTM Pharmacist 06/08/24 Fabi Coates MD [address] [place] [address] 75 [place] [address] Genetics, Clinical 06/18/24 Arthur Salas [facility] [address] [place] [address] Assigned Behavioral Health Provider 08/08/24 Randy Maradiaga DO [address] [place] [address] Assigned Neuroscience Provider 08/08/24 Tete Wang MD [address] [place] [address] Genetics, Clinical 10/30/24 Dahlia Joyce MD [address] [place] [address] Radiology Neuroradiology 11/17/24 Lisa Zambrano MD [address] [place] [address] [place] 566985 Assigned Heart and Vascular Provider 12/06/24 Tete Wang MD [address] [place] [address] Assigned Pediatric Specialist Provider 01/06/25 Any Joiner MD [address] [place] [address] [id number] Assigned Pulmonology Provider 02/05/25 documented as of this encounter
--- OUTSIDE RECORDS SUMMARY | 2025-03-09 12:28 | XMS_ITS | Encounter Summary ---
Author Organization [place] Address [address] [place] [address] 8[address]97 Care Team Providers Care Stair Builder Name Role Phone Winston Villatoro OD Unavailable [phone] Denise Woodson APRN RECRUITING CONSULTANT Unavailable +[phone] Denise Woodson APRN RECRUITING CONSULTANT Primary Care Provider Usha Simon APRN RECRUITING CONSULTANT Unavailable + [phone] Dangelo Salinas MD Unavailable Anastasia Stearns RN Unavailable [phone] Germaine Aleman CHW Unavailable +[phone] Joya Lira RP Unavailable +[phone] Joya Lira [facility] Unavailable +[phone] Fabi Coates MD Unavailable [phone] SinArthur forbes CAD TECHNICIAN Unavailable [phone] Randy Maradiaga DO Unavailable + Tete Wang MD Unavailable [phone] Dahlia Joyce MD Unavailable +[phone] Lisa Zambrano MD Unavailable + [phone] Tete Wang MD Unavailable +[phone] Any Joiner MD Unavailable +[phone] Encounter Details Date Type Department Care Team (Late st Contact Info) Description 12/09/2024 MyC Medical Advice [facility] [address] [facility] [address] Fl[address],[place] [address] Tete Wang MD 1447 [place] [address] Social History Tobacco Use Types Packs/Day Years [...] How often do you attend samaritan or methodist serv ices? 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 Gender Identity Not on file Sexual [...] 03/16/2025 8:00 AM CDT Virtual Visit [address] [phone] Bindu Bueno, OD 909 [place], [place] 496595 Rubi Johnson, OT [address] [address] 03/26/2025 12:45 PM CDT Therapy Visit [address] [phone] Bindu Bueno, OD 909 [place], [place] 919695 Rbui Johnson, OT [address] 623857 04/02/2025 9:30 AM CDT Therapy Visit [address] [phone] Randy Maradiaga, DO 909 [place] [address] Delicia George, PT 150 [place], [place] 837157 04/06/2025 11:00 AM CDT Virtual Visit [address] [phone] Bindu Bueno, OD 909 [place], [place] 100645 Rubi Johnson, OT [address] [address] 04/06/2025 12:30 PM CDT Therapy Visit [address] [phone] Randy Maradiaga, DO 909 [place] [address] Delicia George, PT 150 [place] [address] 04/16/2025 11:00 AM CDT Therapy Visit [address] [phone] Bindu Bueno, OD 909 [place] [address] Rubi Johnson, OT [address] [address] 04/23/2025 12:45 PM CDT Therapy Visit [address] [phone] Magali Buenoissa, OD 909 [place], [place] 986925 Rubi Johnson, OT [address] [address] 04/23/2025 2:00 PM CDT [facility] 150 [place] [phone] Randy Maradiaga, DO [address] [place] [address] 476375 Delicia George, PT 150 [facility] [place], [place] 392447 04/30/2025 10:15 AM CDT Therapy Visit M [address] [phone] Randy Maradiaga, DO [address] [place] [address] 295735 Delicia George, PT 150 [place], [place] 445777 05/04/2025 11:00 AM CDT Virtual Visit [address] [phone] Bindu Bueno, OD 9 [place], [place] 606215 Rubi Johnson, OT [address] 882967 05/07/2025 10:15 AM CDT Therapy Visit M [address] [phone] Randy Maradiaga, DO [address] [place] [address] 311615 Delicia George, PT 150 [place], [place] 459227 05/14/2025 10:15 AM CDT Therapy Visit [address] [phone] Randy Maradiaga, [address] [place] [address] Delicia George, PT 150 [place] [address] 05/14/2025 11:00 AM CDT Therapy Visit [address] [phone] Bindu Bueno, OD 9 [place] [address] Rubi Johnson, [address] [address] 06/01/2025 11:15 AM CDT Appointment [facility] Specialty Care Center Imaging [address] [place] [phone] Robin Zepeda MD [address] [place] [address] 06/02/2025 2:20 PM CDT Virtual Visit [facility] Neurosurgery [address] 3rd [place] [phone] Robin Zepeda MD [address] [place] [address] 07/01/2025 12:00 PM CDT Virtual Visit [facility] Rehabilitation [facility] [place] [address] [facility] 3rd [place] [phone] Santa Menon, PA-C [address] [place] [address] 949885 08/03/2025 4:30 PM ASPHALT PAVING FOREMAN Virtual Visit [facility] [address] [phone] Any Joiner MD 420 [facility] 276 [place], [place] 938015 documented as of this encounter Visit Diagnoses Not on filedocumented in this encounter Additional Health Concerns Assessment Noted Time PHQ-9 Depression Total Score: 0 09/18/19 25 12:46 PM ASPHALT PAVING FOREMAN documented as of this encounter Care Teams Stair Builder Relationship Specialty Start Date End Date Winston Villatoro OD [facility] [address] [facility] [address] [place] [address] PCP - Ophthalmology Ophthalmology 02/11/13 Denise Woodson APRN RECRUITING CONSULTANT [address] [place] [address] PCP - General Family Practice 09/21/20 Denise Woodson APRN RECRUITING CONSULTANT [address] [place] [address] Assigned PCP 07/17/20 Usha Simon APRN RECRUITING CONSULTANT [address] [place] [address] HW0818LL [place] [address] Nurse Practitioner Neurological Surgery 01/24/24 Dangelo Salinas MD [address] [place] [address] Neurology 01/27/24 Anastasia Stearns, RN Lead Assisted Living Housekeeper 02/06/24 12/17/24 Germaine Aleman, W Community Health Worker Primary Care - CC 02/18/2412/17/24 Joya Lira [facility] [address] [facility] [place] [place] [address] Pharmacist Pharmacist 05/25/24 Joya Lira [facility] [address] [facility] [place] [address] Assigned MTM Pharmacist 06/08/24 Fabi Coates MD [address] [place] [address] Genetics, Clinical 06/18/24 Arthur Salas [facility] [address] [place] [address] Assigned Behavioral Health Provider 08/08/24 Randy Maradiaga DO [address] [place] [address] 943745 Assigned Neuroscience Provider 08/08/24 Tete Wang MD [address] [place] [address] [id number] Genetics, Clinical 10/30/24 Dahlia Joyce MD [address] [place] [address] 812345 Radiology Neuroradiology 11/17/24 Lisa Zambrano MD 6405 [facility] [address] [place] [address] 650185 Assigned Heart and Vascular Provider 12/06/24 Tete Wang MD [address] [place] [address] Assigned Pediatric Specialist Provider 01/06/25 Any Joiner MD 420 [facility] 276 [place] [address] Assigned Pulmonology Provider 02/05/25 documented as of this encounter
--- OUTSIDE RECORDS SUMMARY | 2025-03-09 12:28 | XMS_ITS | Encounter Summary ---
Author Organization [place] Address [address] [place] [address] 9[address] Care Team Providers Care Media Marketing Specialist Name Role Phone ShaunaTarikle Se OD Unavailable [phone] Denise Woodson APRN CIVIL RIGHTS ATTORNEY Unavailable +[phone] Denise Woodson APRN CIVIL RIGHTS ATTORNEY Primary Care Provider Usha Simon APRN CIVIL RIGHTS ATTORNEY Unavailable + [phone] Dangelo Salinas MD Unavailable Joya Lira [facility] Unavailable [phone] Joya Lira [facility] Unavailable +[phone] Fabi Coates MD Unavailable [phone] Sinyigaya Specmadi AWNINGS MECHANIC Unavailable +[phone] Randy Maradiaga DO Unavailable + Tete Wang MD Unavailable +[phone] Dahlia Joyce MD Unavailable +[phone] Lisa Zambrano MD Unavailable + [phone] Tete Wang MD Unavailable +[phone] Any Joiner MD Unavailable [phone] Encounter Details Date Type Department Care Team (Late st Contact Info) Description 01/01/2025 [facility] and Rehabilitation [facility] [place] [address] [place] [address] Santa Menon PA-C [address] [place] [address] 062125 Social History Tobacco Use Types Packs/Day Years [...] How often do you attend samaritan or episcopal serv ices? 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 Gender Identity Not on file Sexual [...] Description 03/16/2025 8:00 AM CDT Virtual Visit [address] [phone] Bindu Bueno, OD 909 [place], [place] 344465 Rubi Johnson, OT [facility] [address] [place] [address] 03/26/2025 12:45 PM CDT Therapy Visit [facility] 150 [place] [phone] Bindu Bueno, OD 909 [place], [place] 231475 Rubi Johnson, OT [address] 957827 04/02/2025 9:30 AM CDT Therapy Visit [address] [phone] Randy Maradiaga, DO 909 [place] [address] Delicia George, PT 150 [facility] [place] 827217 04/06/2025 11:00 AM CDT Virtual Visit [address] [phone] Bindu Bueno, OD 909 [place] [address] Rubi Johnson, OT [address] [address] 04/06/2025 12:30 PM CDT Therapy Visit [address] [phone] Randy Maradiaga, DO [address] [place] [address] Delicia George, PT 150 [place] [address] 04/16/2025 11:00 AM CDT Therapy Visit [address] [phone] Bindu Bueno, OD 909 [place], [place] 407205 Rubi Johnson, OT [address] [address] 04/23/2025 12:45 PM CDT Therapy Visit [address] [phone] Bindu Bueno, OD 909 [place] [address] Rubi Johnson, OT [address] [address] 04/23/2025 2:00 PM CDT Therapy Visit [address] [phone] Randy Maradiaga, DO [address] [place] [address] Delicia George, PT 150 [facility] [address] 04/30/2025 10:15 AM CDT Therapy Visit [address] [phone] Randy Maradiaga, DO [address] [place] [address] Delicia George, PT 150 [place] [address] 05/04/2025 11:00 AM CDT Virtual Visit [address] [phone] Bindu Bueno, OD 909 [place] [address] Rubi Johnson, OT [address] [address] 05/07/2025 10:15 AM CDT Therapy Visit [address] [phone] Randy Maradiaga, DO [address] [place] [address] 9[address] Delicia George, PT 150 [place] [address] 05/14/2025 10:15 AM CDT Therapy Visit [address] [place] [address]-74[address]14 Randy Maradiaga, DO [address] [place] [address] 289[address] Delicia George, PT 150 [facility] [place] [address] 05/14/2025 11:00 AM CDT Therapy Visit [facility] [address] [phone] Bindu Bueno, OD [address] [place] [address] 224245 Rubi Johnson, [address] [address] 06/01/2025 11:15 AM CDT Appointment [facility] Specialty Care Center Imaging [address] [place] [address] [place] [phone] Robin Zepeda MD [address] [place] [address] 146495 06/02/2025 2:20 PM CDT Virtual Visit [facility] [address] [phone] Robin Zepeda MD [address] [place] [address] 577215 07/01/2025 12:00 PM CDT Virtual Visit [facility] [address] [phone] Santa Menon PANilesC [address] [place] [address] 08/03/2025 4:30 PM MACHINING TECHNICIAN Virtual Visit [facility] Science [facility] Health Clinic [place] 909 [place] [phone] Any Joiner MD 420 [facility] 276 [place], [place] 400465 documented as of this encounter Visit Diagnoses Not on filedocumented in this encounter Additional Health Concerns Assessment Noted Time PHQ-9 Depression Total Score: 9 12/18/19 25 9:40 AM CDT documented as of this encounter Care Teams Media Marketing Specialist Relationship Specialty Start Date End Date Winston Villatoro OD [facility] [place] [address] [place] [address] PCP - Ophthalmology Ophthalmology 02/11/13 Denise Woodson APRN CIVIL RIGHTS ATTORNEY [address] [place] [address] PCP - General Family Practice 09/21/20 Denise Woodson APRN CIVIL RIGHTS ATTORNEY [address] [place] [address] Assigned PCP 07/17/20 Usha Simon APRN CIVIL RIGHTS ATTORNEY [address] [place] [address] [id number] [place] [address] Nurse Practitioner Neurological Surgery 01/24/24 Dangelo Salinas MD [address] [place] [address] Neurology 01/27/24 Joya Lira RP [address] [address] Pharmacist Pharmacist 05/25/24 Joya Lira RPH [address] [place] [address] Assigned MTM Pharmacist 06/08/24 Fabi Coates MD [address] [place] [address] 75 [place] [address] Genetics, Clinical 06/18/24 Arthur Salas [facility] [address] [place] [address] 8[address]98 Assigned Behavioral Health Provider 08/08/24 Randy Maradiaga DO [address] [place] [address] 11420 Assigned Neuroscience Provider 08/08/24 Tete Wang MD [address] [place] [address] Genetics, Clinical 10/30/24 Dahlia Joyce MD [address] [place] [address] Radiology Neuroradiology 11/17/24 Lisa Zambrano MD 6405 [facility] [place] [address] Assigned Heart and Vascular Provider 12/06/24 Tete Wang MD [address] [place] [address] 12928 Assigned Pediatric Specialist Provider 01/06/25 Any Joiner MD [address] [place] [address] 30900 Assigned Pulmonology Provider 02/05/25 documented as of this encounter
--- OUTSIDE RECORDS SUMMARY | 2025-03-09 12:28 | XMS_ITS | Encounter Summary ---
Author Organization [place] Address [address] [place] [address] 97821 Care Team Providers Care Indirect Fire Infantryman Name Role Phone Yung Madrigal MD Unavailable Unavailable Winston Villatoro OD Unavailable [phone] Denise Woodson APRN PRESSURE WASHER Unavailable [phone] Denise Woodson APRN PRESSURE WASHER Primary Care Provider Usha Simon APRN PRESSURE WASHER Unavailable Dangelo Salinas MD Unavailable Usha Simon APRN PRESSURE WASHER Unavailable Anastasia Stearns RN Unavailable Germaine Aleman CHW Unavailable [phone] Robin Zepeda MD Unavailable Lisa Zambrano MD Unavailable Raul Hoyos MD Unavailable [phone] Joya Lira [facility] Unavailable [phone] Joya Lira RPJoleen Unavailable Fabi Coates MD Unavailable [phone] Robin Zepeda MD Unavailable [phone] Danna Cardenas PA-C Unavailable [phone] Felicita Desai RN Unavailable Unavailab Arthur RiosSW Unavailable +[phone] AshwiniRandy Yobany MARTIN Unavailable + Tete Wang MD Unavailable [phone] Dahlia Joyce MD Unavailable [phone] Lisa Zambrano MD Unavailable + [phone] Tete Wang MD Unavailable [phone] Any Joiner MD Unavailable [phone] Reason for Visit * Reason Comments Medication Refill Encounter Details Date Type Department Care Team (Late st Contact Info) Description 02/19/2022 Refill [facility] [address] [place] [address] Denise Woodson APRN [facility] [address] [place] [address] Medication Refill Social History Tobacco [...] on file 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 Gender Identity Not on file Sexual [...] visit within the authorizing provider's specialty Shawna Yen, RN documented in this encounter Plan of Treatment Upcoming Encounters Date Type Department Care Team (Late st Contact Info) Description 03/16/2025 8:00 AM CDT Virtual Visit [facility] 150 [place] [phone] BuenoBindu, OD 909 [place], [place] 447495 Rubi Johnson, OT [address] 573737 03/26/2025 12:45 PM CDT Therapy Visit [address] [phone] Bindu Bueno, OD 909 [place], [place] 663475 Rubi Johnson, OT [address] 449627 04/02/2025 9:30 AM CDT Therapy Visit [address] [phone] Randy Maradiaga, DO 909 [place], [place] 267435 Delicia George, PT 150 [place], [place] 792887 04/06/2025 11:00 AM CDT Virtual Visit [address] [phone] Bindu Bueno, OD 909 [place], [place] 973715 Rubi Johnson, OT [facility] 150 [place] [address] 04/06/2025 12:30 PM CDT Therapy Visit [facility] 150 [place] [phone] Randy Maradiaga, DO [address] [place] [address] 861415 Delicia George, PT 150 [facility] [place], [place] 401027 04/16/2025 11:00 AM CDT [facility] 150 [place] [phone] Bindu Bueno, OD 909 [place], [place] 549825 Rubi Johnson, OT [facility] 150 [place] [address] 04/23/2025 12:45 PM CDT [facility] 150 [place] [phone] Bindu Bueno, OD 909 [place] [address] Rubi Johnson, OT [facility] 150 [place], [place] 230907 04/23/2025 2:00 PM CDT Therapy Visit [address] [phone] Randy Maradiaga, DO [address] [place] [address]36 Delicia George, PT 150 [place] [address] 04/30/2025 10:15 AM CDT Therapy Visit [address] [phone] Randy Maradiaga, DO [address] [place] [address] 532595 Delicia George, PT 150 [place] [address] 05/04/2025 11:00 AM CDT Virtual Visit [address] [phone] Bindu Bueno, OD 909 [place] [address] Rbui Johnson, OT [address] [address] 05/07/2025 10:15 AM CDT Therapy Visit [address] [phone] Randy Maradiaga, DO [address] [place] [address] 407935 Delicia George, PT 150 [place], [place] 493337 05/14/2025 10:15 AM CDT Therapy Visit [address] [phone] Randy Maradiaga, [address] [place] [address] 8[address] Delicia George, PT 150 [place], [place] 423317 05/14/2025 11:00 AM CDT Therapy Visit [address] [phone] Bindu Bueno, OD [address] [place] [address] 135035 Rubi Johnson, [address] [address] 06/01/2025 11:15 AM CDT Appointment [facility] Specialty Care Center Imaging [address] [facility] [address] [place] [phone] Robin Zepeda MD [address] [place] [address] 121525 06/02/2025 2:20 PM CDT Virtual Visit [facility] Neuro[facility] Clinic [address] 3rd [place] [phone] Robin Zepeda MD [address] [place] [address] 741745 07/01/2025 12:00 PM CDT Virtual Visit [facility] Physical Medicine and Rehabilitation Clinic [address] 3rd [place] [address] Santa Menon PAMani [address] [place] [place] [address] 286355 08/03/2025 4:30 PM 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 CAR 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 MECHANIC Virtual Visit M [facility] for [facility] Clinic [address] [address] Any Joiner MD 420 [facility] 276 [place] [address] documented as of this encounter Visit Diagnoses Diagnosis Moderate persistent asthma without complication Unspecified asthma documented in this encounter Additional Health Concerns Infection Onset Date Last Indicated Resolved Time Rule Out COVID-19 09/13/2024 09/13/2024 09/13/2024 12:31 PM USED CAR MAKE READY MECHANIC [place] Out COVID-19 11/14/2024 11/14/2024 11/14/2024 8:25 PM USED CAR MAKE READY MECHANIC Assessment Noted Time PHQ-9 Depression Total Score: 0 06/23/20 21 4:11 PM CDT documented as of this encounter Care Teams Indirect Fire Infantryman Relationship Specialty Start Date End Date Yung Madrigal MD RETIRED PCP - Orthopaedics Orthopedics 08/26/12 01/20/24 Winston Villatoro, OD [facility] [place] [address] [place] [address] PCP - Ophthalmology Ophthalmology 02/11/13 Denise Woodson APRN PRESSURE WASHER [address] [address] PCP - General Family Practice 09/21/20 Denise Woodson APRN PRESSURE WASHER [address] [place] [address] Assigned PCP 07/17/20 Usha Simon APRN PRESSURE WASHER [address] [address] Nurse Practitioner Neurological Surgery 01/24/24 Dangelo Salinas MD [address] [place] [address] Neurology 01/27/24 Usha Simon APRN PRESSURE WASHER [address] [place] [address] 16121 Assigned Neuroscience Provider 02/06/24 03/07/24 Anastasia Stearns, RN Lead Financial Sales Consultant 02/06/24 12/17/24 Germaine Aleman, W Community Health Worker Primary Care - CC 02/18/2412/17/24 Robin Zepeda MD [address] [address] Assigned Neuroscience Provider 03/08/24 05/07/24 Lisa Zambrano MD [address] [place] [place] [address] Assigned Heart and Vascular Provider 05/08/24 07/07/24 Raul Hoyos MD [address] [address] Assigned Neuroscience Provider 05/08/24 07/07/24 Joya Lira [facility] [address] [place] [address] Pharmacist Pharmacist 05/25/24 Joya Lira [facility] [address] [place] [address]2006 Assigned MTM Pharmacist 06/08/24 Fabi Coates MD [address] [place] [address] 75 [place] [address] Genetics, Clinical 06/18/24 Robin Zepeda MD [address] [place], [place] [address]CJ [place] [address] Assigned Neuroscience Provider 07/08/24 08/07/24 Danna Cardenas PA-C [address] [place] [address] 246[address] Assigned Heart and Vascular Provider 07/08/24 12/05/24 Felicita Desai RN Lead Financial Sales Consultant 07/14/24 07/28/24 Arthur Salas, [facility] [address] [address] Assigned Behavioral Health Provider 08/08/24 Randy Maradiaga DO [address] [place] [address]19 Assigned Neuroscience Provider 08/08/24 Tete Wang MD [address] [place] [address] 031584 Genetics, Clinical 10/30/24 Dahlia Joyce MD [address] [place] [address] Radiology Neuroradiology 11/17/24 [place] [address] [place] [address] [place] [address] Assigned Heart and Vascular Provider 12/06/24 Tete Wang MD [address] [place] [address] 260334 Assigned Pediatric Specialist Provider 01/06/25 Any Joiner MD [address] [place] [address] [id number] Assigned Pulmonology Provider 02/05/25 documented as of this encounter
--- OUTSIDE RECORDS SUMMARY | 2025-03-09 12:28 | XMS_ITS | Encounter Summary ---
Author Organization [facility] Address [address] [place] [address] Care Team Providers Care Outboard Motor Mechanic Name Role Phone ShaunaTarikle Se OD Unavailable [phone] Dneise Woodson APRN PNEUMATIC DRUM SANDER Unavailable [phone] Denise Woodson APRN PNEUMATIC DRUM SANDER Primary Care Provider Usha Simon APRN PNEUMATIC DRUM SANDER Unavailable + [phone] Dangelo Salinas MD Unavailable Joya Lira [facility] Unavailable [phone] Joya Lira [facility] Unavailable [phone] Fabi Coates MD Unavailable [phone] SinyigaArthur villafana VALUE STREAM MANAGER Unavailable [phone] Randy Maradiaga DO Unavailable + Tete Wang MD Unavailable [phone] Dahlia Joyce MD Unavailable [phone] Lisa Zambrano MD Unavailable + [phone] Tete Wang MD Unavailable [phone] Any Joiner MD Unavailable [phone] Reason for Visit * Reason Onset Date Comments Medication Question 01/06/2025 Encounter Details Date Type Department Care Team (Latest Contact Info) Description 01/06/2025 MyC Medical Advice [facility] [address] 3rd [place] [address] Santa Menon PA-C [address] [place] [address] [id number] Medication Question Social History Tobacco Use Types Packs/Day Years [...] How often do you attend moravian or christianity serv ices? 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 Santa Dejesus PAC Please see response below to your question from Denise Woodson APRN, CNP Message routed back to Santa Dejesus PAC with response from Denise Woodson APRN, CNP below Santa Menon PA-C Bergquist, Jenna, APRN CNP6 days ago Can she take both Trazodone and Amitriptyline at the same time Candy Espinal, Registered Nurse [facility] * Telephone Encounter - Denise Woodson APRN CNP - 01/14/2025 6:55 AM CDT I haven't been prescribing the trazodone but if she is starting the amitriptyline she would likely notice help with sleep with that med as well and can taper her trazodone. Unsure of how she is taking the trazodone, but it would be a good idea to try to taper so she is not oversedated with both meds. [facility] * Telephone Encounter - Hannah Kaur RN - 01/06/2025 12:48 PM CDT SITUATION: Consult visit date 12/31/24 Order for amitriptyline 25 mg at bedtime BACKGROUND: Pt reported on 05/29/24 historical med: trazodone 100 mg at bedtime, no start date, no provider listed Unclear of specific review of this med for the visit on 12/31/24 Pharmacist told patient not to take amitriptyline with trazodone ASSESSMENT / ACTION: Called to pt to learn more: I've been on trazodone for maybe 20 years now doesn't recall who originally started trazodone It was for sleep so the pharmacist thought the amitriptyline was replacing the trazodone No specific instructions from pharmacist were given about weaning / replacing with new drug I decided to cut them in half and I've been taking only 50 mg, I haven't started the amitriptylineyet. I haven't felt anything different my PCP has been renewing the trazodone Pt did not notify or consult her PCP about reducing the dose and starting amitriptyline Certified Fraud Examiner advised pt that her PM &R provider is not available today so we cannot answer her question or give further directions about these medications. Advised pt to wait for provider to review the situation and do not make any further changes until she hears back. REQUEST / RECOMMENDATION: Provider expected in clinic tomorrow, Hannah Kaur RN on 01/06/2025 at 1:01 PM documented in this encounter Plan of Treatment Upcoming Encounters Date Type Department Care Team (Late st Contact Info) Description 03/16/2025 8:00 AM CDT Virtual Visit [address] [phone] Bindu Bueno, OD [address] [place] [address] Rubi Johnson, OT [address] [address] 03/26/2025 12:45 PM CDT Therapy Visit [address] [phone] Bindu Bueno, OD [address] [place] [address] Rubi Johnson, OT [address] [address] 04/02/2025 9:30 AM CDT Therapy Visit [address] [phone] Randy Maradiaga, DO [address] [place] [address] Delicia George, PT [address] [place] [address] 04/06/2025 11:00 AM CDT Virtual Visit [address] [phone] Myles Bindu, OD [address] [place], [place] [address] Rubi Johnson, OT [address] [address] 04/06/2025 12:30 PM CDT Therapy Visit [address] [phone] Randy Maradiaga, DO [address] [place] [address] Delicia George, PT [address] [place] [address] 04/16/2025 11:00 AM CDT Therapy Visit [address] [phone] Bueno Bindu, OD [address] [place], [place] [address] Rubi Johnson, OT [address] [address] 04/23/2025 12:45 PM CDT Therapy Visit [address] [phone] Bindu Bueno, OD [address] [place] [address] Rubi Johnson, OT [facility] [address] [address] 04/23/2025 2:00 PM CDT Therapy Visit [address] [phone] Randy Maradiaga, DO [address] [place] [address] Delicia George, PT [address] [place] [address] 04/30/2025 10:15 AM CDT Therapy Visit [address] [phone] Randy Maradiaga, DO [address] [place] [address] Delicia George, PT [address] [place] [address] 05/04/2025 11:00 AM CDT Virtual Visit [address] [phone] BuenoBindu flores, OD [address] [place], [place] [address] Rubi Johnson, OT [facility] [address] [place], [place] [address]40[address] 05/07/2025 10:15 AM CDT Therapy Visit [address] [phone] Randy Maradiaga, DO [address] [place] [address] Delicia George, PT [address] [facility] [place] [place] [address] 05/14/2025 10:15 AM CDT Therapy Visit [address] [phone] Randy Maradiaga, DO [address] [place] [address] Delicia George, PT [address] [place], [place] [address] 05/14/2025 11:00 AM CDT Therapy Visit [address] [phone] Bindu Bueno, OD [address] [place] [address] Rubi Johnson, OT [address] [address] 06/01/2025 11:15 AM CDT Appointment [facility] [address] [place] [phone] Robin Zepeda MD [address] [id number] [address] 06/02/2025 2:20 PM CDT Virtual Visit [facility] [address] [phone] Robin Zepeda MD [address] [place] [address] 07/01/2025 12:00 PM CDT Virtual Visit [facility] [address] [phone] Santa Menon, PANilesC [address] [place] [address] 495915 08/03/2025 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 Virtual Visit [facility] [address] [phone] Any Joiner MD [address] [place] [address] [address] [place], [place] 911585 documented as of this encounter Visit Diagnoses Not on filedocumented in this encounter Additional Health Concerns Assessment Noted Time PHQ-9 Depression Total Score: 9 12/18/19 25 9:40 AM CDT documented as of this encounter Care Teams Outboard Motor Mechanic Relationship Specialty Start Date End Date Winston Villatoro, AMELIE [facility] [place] [address] [place] [address] PCP - Ophthalmology Ophthalmology 02/11/13 Denise Woodson APRN PNEUMATIC DRUM SANDER [address] [address] PCP - General Family Practice 1/6/21 Denise Woodson APRN PNEUMATIC DRUM SANDER [address] [facility] [place] [address] Assigned PCP 07/17/20 Uhsa Simon APRN PNEUMATIC DRUM SANDER [address] [facility] [id number], [place] [id number] Nurse Practitioner Neurological Surgery 01/24/24 Dangelo Salinas MD [address] [place] [address] Neurology 01/27/24 Joya Lira [facility] [address] [address] Pharmacist Pharmacist 05/25/24 Joya Lira [facility] [address] [place], [place] [phone] Assigned MTM Pharmacist 06/08/24 Fabi Coates MD [address] [facility] [address] [place], [place] [phone] Genetics, Clinical 06/18/24 Arthur Salas, [facility] [address] [place] [address] Assigned Behavioral Health Provider 08/08/24 Randy Maradiaga DO [address] [place] [address] Assigned Neuroscience Provider 08/08/24 Tete Wang MD [address] [place] [address] Genetics, Clinical 10/30/24 Dahlia Joyce MD [address] [place] [address] Radiology Neuroradiology 11/17/24 Lias Zambrano MD [address] [facility] [address] [place] [address] Assigned Heart and Vascular Provider 12/06/24 [place] [address] [place] [address] Assigned Pediatric Specialist Provider 01/06/25 Any Joiner MD [address] [place] [address] [address] [place], [place] 362645 Assigned Pulmonology Provider 02/05/25 documented as of this encounter
--- OUTSIDE RECORDS SUMMARY | 2025-03-09 12:28 | XMS_ITS | Clinical Summary ---
Author Organization [facility] Address [address] [place] [address] Care Team Providers Care International Sourcing Manager Name Role Phone Winston Villatoro OD Unavailable [phone] Denise Woodson APRN INDUSTRIAL TECHNICIAN Unavailable [phone] Denise Woodson APRN INDUSTRIAL TECHNICIAN Primary Care Provider Usha Simon APRN INDUSTRIAL TECHNICIAN Unavailable + [phone] Dangelo Salinas MD Unavailable Joya Lira RP Unavailable [phone] Joya Lira [facility] Unavailable [phone] Fabi Coates MD Unavailable [phone] [employer], [employer]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 [phone] Randy Maradiaga DO Unavailable + Tete Wang MD Unavailable [phone] Dahlia Joyce MD Unavailable [phone] Lisa Zambrano MD Unavailable + [phone] Tete Wang MD Unavailable [phone] Any Joiner MD Unavailable [phone] Allergies Active Allergy Reactions Criticality Noted Date Comments Acetaminophen-Codeine Nausea and Vomiting,Other (See Comments) 01/10/2022 Bupropion GI Disturbance,Other (See Comments) Low 01/19/2011 Diarrhea and stomach ache Codeine GI Disturbance High 09/23/2022 Other Reaction(s): epigastric pain Doxycycline Rash Low 09/28/2024 Erythromycin GI Disturbance Low 12/27/2005 Iodinated Contrast Media Headache,Nausea,Other (See Comments) 01/05/2025 Mold Dizziness,GI Disturbance 08/22/2012 Molds & Smuts Dizziness,Nausea 08/22/2012 Morphine GI Disturbance 05/15/2024 Pollen Extract Other (See Comments),Unknown 08/22/2012 Medications albuterol (PROAIR HFA/PROVENTIL HFA/VENTOLIN HFA) 108 (90 Base) MCG/ACT inhalerIndication s:Moderate persistent asthma without complication Inhale 2 puffs into the lungs every 4 hours as needed for shortness of breath / dyspnea or wheezing 1 Inhaler 3 0 Active cetirizine (ZYRTEC) 10 MG tablet Take 10 mg by mouth at bedtime. Active psyllium (METAMUCIL) 28.3 % packet Take 1 packet by mouth daily Active acetaminophen (TYLENOL) 500 MG tabletIndications :Fibromyalgia,Tony n of right upper extremity Take 1-2 tablets (500-1,000 mg) by mouth 3 times daily as needed for mild pain or headaches 4 Active MAGNESIUM PO Take 1 tablet by mouth at bedtime. Active Lidocaine (LIDOCARE) 4 % PatchIndications: Pain of right upper extremity,Fibromy algia Place 1 patch onto the skin daily as needed. To prevent lidocaine toxicity, patient should be patch free for 12 hrs daily. 4 Active traZODone (DESYREL) 100 MG tablet Take 100 mg by mouth at bedtime. 4 Active LORazepam (ATIVAN) 1 MG tabletIndications :History of seizure Take 1/2-1 tablet daily as needed for onset of dizziness. 10 tablet 4 Active albuterol (PROAIR HFA/PROVENTIL HFA/VENTOLIN HFA) 108 (90 Base) MCG/ACT inhaler Inhale 1-2 puffs into the lungs every 6 hours as needed for shortness of breath, wheezing or cough. 18 g 4 Active BREO ELLIPTA 200-25 MCG/ACT inhalerIndication s:Moderate persistent asthma without complication INHALE 1 PUFF INTO THE LUNGS DAILY. 180 each 5 Active levETIRAcetam (KEPPRA) 750 MG tabletIndications :History of seizure Take 1/2 of 750 mg tab BID 120 tablet 2 5 Active citalopram (CELEXA) 10 MG tabletIndications :Generalized anxiety disorder Take 0.5 tablets (5 mg) by mouth daily. 90 tablet 5 Active meclizine (ANTIVERT) 12.5 MG tabletIndications :Cerebrovascular accident (CVA), unspecified mechanism (H),History of CVA (cerebrovascular accident),Dizzine ss Take 1 tablet (12.5 mg) by mouth 3 times daily as needed for dizziness. 30 tablet 1 5 04/03/20 25 Active Active Problems Problem Noted Date Diagnosed Date Fibromuscular dysplasia 12/16/2024 Right sided numbness 07/13/2024 Tachycardia 07/07/2024 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, unspecified cerebrovascular disease type 06/05/2024 Chronic obstructive pulmonary disease without ex acerbation 06/05/2024 Gastroesophageal reflux dise ase with esophagitis without hemorrhage 05/16/2024 Chest pain 05/14/2024 Pain of right upper extremity 01/22/2024 Fibromyalgia 01/22/2024 Dural arteriovenous fistula 01/22/2024 Seizure-like activity 01/20/2024 History of seizure 01/20/2024 History of stroke 01/20/2024 Stroke 01/17/2024 Moderate persistent asthma without complication 06/15/2019 Chronic rhinitis 06/15/2019 Insomnia, unspecified type 06/15/2019 Anti-TPO antibodies [...] Problem Noted Date Diagnosed Date Resolved Date Severe episode of recurrent major depressive disorder, without psychotic features 06/15/201908/2025 Dysthymic disorder 10/08/2007 8 Encounters Date Type Department Care Team Description 03/05/[address] [facility] Physical Medicine [facility] Rehabilitation [address] [phone] Santa Menon PA-C 03/04/2025 12:00 PM CDT Virtual Visit [facility] [address] [phone] Santa Menon, PANilesC Cerebrovascular accident (CVA), unspecified mechanism (H) (Primary Dx); History of CVA (cerebrovascular accident); Dizziness 02/26/2025 10:00 AM CDT Virtual Visit [address] [phone] Bindu Bueno OD Glaser, Amy J, OT Cerebrovascular accident (CVA), unspecified mechanism (H) (Primary Dx); Activity of daily living alteration; Alteration in instrumental activities of daily living (IADL) 02/26/2025 MyC Medical Advice [address] [phone] Delicia George, GALINA 02/23/[address] [facility] Critical access hospital0 [facility] [address] [address] Xochilt Mancuso, GC Results 02/22/2025 MyC Medical Advice [address] [phone] Denise Woodson APRN CNP 02/19/2025 12:45 PM CDT Therapy Visit [address] [phone] Bindu Bueno OD Glaser, Amy J, OT Cerebrovascular accident (CVA), unspecified mechanism (H) (Primary Dx); Activity of daily living alteration; Alteration in instrumental activities of daily living (IADL) 02/19/2025 Travel 02/16/2025 Travel 02/12/2025 11:00 AM CDT Therapy Visit [address] [phone] Bindu Bueno OD Glaser, Amy J, OT Cerebrovascular accident (CVA), unspecified mechanism (H) (Primary Dx); Activity of daily living alteration; Alteration in instrumental activities of daily living (IADL) 02/12/2025 Travel 02/09/2025 Travel 02/03/2025 MyC Medical Advice [address] [phone] Delicia George, PT 02/01/2025 9:30 AM CDT Office Visit [facility] [address] [phone] Santa Menon, PANilesC Bindu Bueno OD Saccadic deficiency (Primary Dx); History of CVA (cerebrovascular accident); Abnormal peripheral vision of both eyes 02/01/2025 Travel 01/29/2025 Travel 01/27/2025 Telephone [facility] Lung Science and [address] [phone] Any Joiner MD Symptoms 01/26/2025 1:15 PM CDT Virtual Visit [address] [phone] Randy Maradiaga, Delicia Soto, PT Cerebrovascular accident (CVA), unspecified mechanism (H) (Primary Dx) 01/26/2025 Results Follow-Up [facility] Health [address] [phone] Any Joiner MD Subj: lab results 01/25/2025 11:00 AM CDT Lab [facility] [address] [place] [address] BPD (bronchopulmonary dysplasia) (H); Flank pain; Idiopathic hypereosinophilic syndrome 01/25/2025 11:00 AM CDT Office Visit [facility] [id number] [place] [phone] Denise Woodson APRN CNP Generalized anxiety disorder (Primary Dx); BPD (bronchopulmonary dysplasia) (H); Hemiparesis of right dominant side as late effect of cerebrovascular disease, unspecified cerebrovascular disease type (H); MDD (major depressive disorder), recurrent episode, moderate (H); Routine general medical examination at a health care facility 01/25/2025 Travel 01/22/2025 Travel 01/21/2025 11:30 AM CDT Virtual Visit [facility] [address] [phone] Randy Maradiaga DO History of seizure 01/20/2025 Telephone [facility] Lung Science [facility] Health [address] [phone] Any Joiner MD 01/20/[address] [facility] [address] [phone] Santa Menon PA-C 01/19/2025 4:00 PM CDT Office Visit [facility] Lung Science [facility] [address] [phone] Any Joiner MD Flank pain (Primary Dx); BPD (bronchopulmonary dysplasia) (H); Idiopathic hypereosinophilic syndrome 01/19/2025 3:[address] [facility] Pulmonary Function Testing [address] [phone] Any Joiner MD Bronchopulmonary dysplasia (H) 01/19/2025 11:45 AM CDT Therapy Visit [address] [phone] Randy Maradiaga, Delicia Soto, PT Cerebrovascular accident (CVA), unspecified mechanism (H) (Primary Dx) 01/19/2025 Travel 01/19/2025 PRE VISIT [facility] Clinic [address] [phone] Any Joiner MD *-*INCOMING RECORDS*-* 01/16/2025 Travel 01/14/[address] [facility] [address] 3rd [place] [phone] Randy Maradiaga DO 01/14/[address] [facility] [address] [phone] Xochilt Mancuso, 01/12/2025 11:45 AM CDT Therapy Visit [address] [phone] Randy Maradiaga, Delicia Soto, PT Cerebrovascular accident (CVA), unspecified mechanism (H) (Primary Dx) 01/12/2025 8:30 AM CDT Lab [facility] [address] [place] [phone] EDS (Lizy-Danlos syndrome) (Primary Dx); Internal carotid artery dissection; AVF (arteriovenous fistula) 01/12/2025 Travel 01/11/2025 Documentation Only [facility] [address] [place] [address] Addis Ceja 01/08/2025 9:30 AM CDT Office Visit [facility] [address] [phone] Katarzyna Urbina, AuD Dizziness (Primary Dx); Cerebrovascular accident (CVA), unspecified mechanism (H); Unsteadiness; Headache 01/08/2025 9:00 AM CDT Office Visit [facility] [address] [phone] Micky Tobin AuD Dizziness (Primary Dx) 01/08/2025 Travel 01/07/2025 2:30 PM CDT Virtual Visit [address] [phone] Denise Woodson APRN CNP Insomnia, unspecified type (Primary Dx); Fibromyalgia; Generalized anxiety disorder; Moderate persistent asthma without complication; Chest pain, unspecified type 01/07/2025 Travel 01/06/2025 1:[address] CDT Virtual Visit [facility] [address] [place] [phone] Acute cough (Primary Dx) 01/06/[address] [facility] [address] [phone] Santa Menon PA-C Medication Question 01/01/[address] [facility] [address] [phone] Santa Menon PA-C 01/01/[address] [facility] [address] [phone] Santa Menon PA-C 12/31/2024 12:45 PM CDT Virtual Visit [facility] [address] [phone] Randy Maradiaga, Santa Thompson PA-C Cerebrovascular accident (CVA), unspecified mechanism (H); History of CVA (cerebrovascular accident) 12/31/[address] [facility] [address] 4th [place] [phone] Phoebe Del Cid 12/17/2024 10:00 AM CDT Office Visit [facility] [address] [place] [phone] Denise Woodson APRN INDUSTRIAL TECHNICIAN Dysuria (Primary Dx); Radicular low back pain; Rash 12/17/2024 Travel 12/16/2024 Telephone [facility] [address] [place] [phone] Denise Woodson APRN INDUSTRIAL TECHNICIAN 12/16/2024 MyC Medical Advice [facility] [address] [place] [phone] Anamika Johns 12/09/2024 1:15 PM CDT Office Visit [facility] Pediatric Specialty Clinic Critical access hospital0 [facility] [phone] Tete Wang MD Fibromuscular dysplasia (H24) ?? on cerbral angio Rt ICA dissection noted 12/2023 at [facility] subsequent head and neck CTA negtaive; ASD (atrial septal defect) amplatzer septal occluder- serial #[id number] ( 06/2006); EDS (Lizy-Danlos syndrome) diagnosed at [place] [address] 12/09/2024 12:45 PM CDT Office Visit [facility] [address] [place], [place] [address] [address] [phone] Tete Wang MD Lenhart, Kelsey N, BEN EDS (Lizy-Danlos syndrome) (Primary Dx); Internal carotid artery dissection; AVF (arteriovenous fistula); Encounter for nonprocreative genetic counseling 12/09/2024 MyC Medical Advice [facility] [address] [facility] [address],[place] [address] Tete Wang MD 12/09/2024 Travel 12/07/2024 1:30 PM CDT Therapy Visit [facility] [address] [place] [phone] Randy Maradiaga, Azra Virgen Ap, PT Cerebrovascular accident (CVA), unspecified mechanism (H) (Primary Dx) 12/07/2024 Travel from Last 3 Months Immunizations Immunization Administration Dates Next Due COVID-19 Vaccine (Boomsense) 11/20/2020 Flu, Unspecified 07/11/2017,07/02/2014 HepB 03/03/2012,11/07/2011,10/04/2011 Hepatitis B, Adult (Energix-B/Recombivax HB) 03/03/2012,11/07/2011,10/04/2011 Influenza (IIV3) PF 06/01/2013,07/04/2007 Influenza (prior to [...] re latives? 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 Not on file Not [...] Mass Index 32.22 03/04/2025 11:50 AM CDT Plan of Treatment Upcoming Encounters Date Type Department Care Team (Late st Contact Info) Description 03/16/2025 8:00 AM CDT Virtual Visit [address] [phone] Magali Buenoissa, OD [address] [place], [place] [phone] Rubi Johnson, OT [address] [address] 03/26/2025 12:45 PM CDT Therapy Visit [address] [phone] BuenoMagaliBindu, OD [address] [place], [place] [phone] Rubi Johnson, OT [address] [address] 04/02/2025 9:30 AM CDT Therapy Visit [address] [phone] Randy Maradiaga, DO [address] [place], [place] [address] Delicia George, PT [address] [place] [address] 04/06/2025 11:00 AM CDT Virtual Visit [facility] [address] [place] [phone] Bindu Bueno, OD [address] [place] [address] Rubi Johnson, OT [address] [address] 04/06/2025 12:30 PM CDT Therapy Visit [address] [phone] Randy Maradiaga, DO [address] [place] [address] Delicia George, PT [address] [place] [address] 04/16/2025 11:00 AM CDT Therapy Visit [address] [phone] Bindu Bueno, OD [address] [place] [address] Rubi Johnson, OT [address] [address] 04/23/2025 12:45 PM CDT Therapy Visit [address] [phone] Bindu Bueno, OD [address] [place] [address] Rubi Johnson, OT [address] [address] 04/23/2025 2:00 PM CDT Therapy Visit [address] [phone] Randy Maradiaga, DO [address] [place] [address] Delicia George, PT [address] [facility] [place] [address] 04/30/2025 10:15 AM CDT Therapy Visit [address] [phone] Randy Maradiaga, DO [address] [place] [address] Delicia George, PT [address] [facility] [place] [address] 05/04/2025 11:00 AM CDT Virtual Visit [address] [phone] Bindu Bueno, OD [address] [place] [address] Rubi Johnson, OT [address] [address] 05/07/2025 10:15 AM CDT Therapy Visit [address] [phone] Randy Maradiaga, DO [address] [place] [address] Delicia George, PT [address] [place] [address] 05/14/2025 10:15 AM CDT Therapy Visit [address] [phone] Randy Maradiaga, DO [address] [place] [address] Delicia George, PT [address] [place] [address] 05/14/2025 11:00 AM CDT Therapy Visit [address] [phone] Bindu Bueno, OD [address] [place] [address] Rubi Johnson, [address] [address] 06/01/2025 11:15 AM CDT Appointment [facility] [address] [place] [phone] Robin Zepeda MD [address] [place] [address] [id number] [place] [address] 06/02/2025 2:20 PM CDT Virtual Visit [facility] [address] 3rd [place] [phone] Robin Zepeda MD [address] [place] [address] [id number] [place], [place] [address] 07/01/2025 12:00 PM CDT Virtual Visit [facility] Rehabilitation [facility] [address] 3rd [place] [phone] Santa Menon, PA-C [address] [place] [address] 08/03/2025 4:30 PM SYSTEMS ANALYSIS MANAGER Virtual Visit [facility] [address] [phone] Any Joiner MD [address] [facility] [address] [place], [place] [phone] Health Maintenance Due Date Last Done Comments COPD ACTION PLAN 1976 CT COLONOGRAPHY 1976 FIT 1976 FLEX SIG 1976 COLONOSCOPY 1986 PNEUMOCOCCAL VACCINE: PEDIATRICS (0 to 5 YEARS) AND AT-RISK PATIENTS (6 to 49 YEARS) (2 of 2 - PCV) 03/16/2005 03/16/2004 COVID-19 VACCINE ( - season) 2024 07/07/2021, 11/20/2020 DEPRESSION 6 MO INDEX REPEAT PHQ-9 02/08/2025 01/25/2025, 01/07/2025, 12/17/2024, Additional history exists INFLUENZA VACCINE (Season Ended) 2025 08/02/2022, 06/23/2021, 07/27/2020, Additional history exists PHQ-9 07/28/2025 01/25/2025, 12/16, 12/17/2024, Additional history exists MAMMO SCREENING 07/30/2025 07/30/2023, 07/17, 04/25/2022, Additional history exists ANNUAL REVIEW OF HM ORDERS 09/04/202509/04, 02/06/2024, 01/04/2021 COLORECTAL CANCER SCREENING 10/28/2025 sDNA (Cologuard) 10/28/2025 10/28/2022 YEARLY PREVENTIVE VISIT 01/25/2026 01/26/20 25, 01/10/2023, 07/27/2021, Additional history exists ZOSTER VACCINE (1 of 2) 2026 DIABETES SCREENING 12/18/2027 12/17/2024, 0 11/14/2024, 11/11/2024, Additional history exists LIPID 07/13/2029 07/13/2024, 08/, 07/27/2021, Additional history exists ADVANCE CARE PLANNING 01/25/2030 01/25/2025 DTAP/TDAP/TD VACCINE (7 - Td or Tdap) 01/04/2031 01/04/2021, 01/26/2011, 04/05/2003, Additional history exists HEPATITIS B VACCINE Completed 03/03/2012, 03/03/2012, 11/07/2011, Additional history exists DEPRESSION ACTION PLAN Completed 01/04/2021, 2020 HEPATITIS C SCREENING Completed 07/22/2024, 024 HIV SCREENING Completed 07/22/2024, 07/22/2024 SPIROMETRY Completed 01/19/2025, 02/2025, 01/19/2025, Additional history exists HPV VACCINE Aged Out No longer eligi ble based on patient's age to complete this topic MENINGITIS VACCINE Aged Out No longer eligible based on patient's age to complete this topic PAP Discontinued Goals Goal Patient Goal Type Associated Problems [...] DEP WELCOME- PROBLEM TEMPLATE No Background, Analytics Procedures Procedure Name Priority Date/Time Associated Diagnosis Comments DRIVERS LICENSE KINETIC & STATIC OU Routine 02/01/2025 1:05 PM CDT Abnormal peripheral vision of both eyes CBC WITH PLATELETS & DIFFERENTIAL Routine 01/25/2025 11:24 AM CDT BPD (bronchopulmonary dysplasia) (H) Flank pain Idiopathic hypereosinophilic syndrome CBC WITH PLATELETS AND DIFFERENTIAL Routine 01/25/2025 11:24 AM CDT BPD (bronchopulmonary dysplasia) (H) Flank pain Idiopathic hypereosinophilic syndrome CRP INFLAMMATION Routine 01/25/2025 11:24 AM CDT BPD (bronchopulmonary dysplasia) (H) Flank pain Idiopathic hypereosinophilic syndrome IGE Routine 01/25/2025 11:24 AM CDT BPD (bronchopulmonary dysplasia) (H) Flank pain Idiopathic hypereosinophilic syndrome ANCA IGG BY IFA WITH REFLEX TO TITER Routine 01/25/2025 11:24 AM CDT BPD (bronchopulmonary dysplasia) (H) Flank pain Idiopathic hypereosinophilic syndrome URINE MICROSCOPIC EXAM Routine 10:42 AM CDT BPD (bronchopulmonary dysplasia) (H) Flank pain Idiopathic hypereosinophilic syndrome URINE MACROSCOPIC WITH REFLEX TO MICRO Routine 01/25/2025 10:42 AM CDT BPD (bronchopulmonary dysplasia) (H) Flank pain Idiopathic hypereosinophilic syndrome DC PLETHYSMOGRAPHY LUNG VOLUMES W/WO AIRWAY RESIST Routine 01/19/2025 3:26 PM CDT Bronchopulmonary dysplasia (H) DC VITAL CAPACITY TOTAL Routine 01/19/2025 3:26 PM CDT Bronchopulmonary dysplasia (H) DC BRONCHODILATION RESPONSE, PRE/POST ADMIN Routine 01/19/2025 3:26 PM CDT Bronchopulmonary dysplasia (H) DC DIFFUSING CAPACITY Routine 01/19/2025 3:26 PM CDT Bronchopulmonary dysplasia (H) PFT GENERAL LAB TESTING Routine 01/19/2025 2:50 PM CDT Bronchopulmonary dysplasia (H) NEXT GENERATION SEQUENCING Routine 01/12/2025 8:34 AM CDT EDS (Lizy-Danlos syndrome) Internal carotid artery dissection AVF (arteriovenous fistula) NGS 11 OR MORE GENES Routine 01/12/2025 8:34 AM CDT EDS (Lizy-Danlos syndrome) Internal carotid artery dissection AVF (arteriovenous fistula) DC CALORIC VESTIBULAR TEST W/REC BI BITHERMAL Routine 01/08/2025 12:47 PM CDT Cerebrovascular accident (CVA), unspecified mechanism (H) Dizziness Unsteadiness Headache DC POSITIONAL NYSTAGMUS TEST Routine 01/08/2025 12:47 PM CDT Cerebrovascular accident (CVA), unspecified mechanism (H) Dizziness Unsteadiness Headache DC OSCILLATING TRACKING TEST Routine 01/08/2025 12:47 PM CDT Cerebrovascular accident (CVA), unspecified mechanism (H) Dizziness Unsteadiness Headache DC SPONTANEOUS NYSTAGMUS TEST Routine 01/08/2025 12:47 PM CDT Cerebrovascular accident (CVA), unspecified mechanism (H) Dizziness Unsteadiness Headache DC TYMPANOMETRY AND REFLEX THRESHOLD MEASUREMENTS Routine 01/08/2025 9:32 AM CDT Dizziness DC COMPREHENSIVE HEARING TEST Routine 01/08/2025 9:32 AM CDT Dizziness AUDIOGRAM/TYMPANOGRAM - INTERFACE 01/08/2025 9:00 AM CDT AUDIOLOGY RESULT OTHER - HIM SCAN 01/08/2025 12:00 AM CDT CBC WITH PLATELETS & DIFFERENTIAL Routine 12/17/2024 10:24 AM CDT Dysuria Radicular low back pain Rash CBC WITH PLATELETS AND DIFFERENTIAL Routine 12/17/2024 10:24 AM CDT Dysuria Radicular low back pain Rash BASIC METABOLIC PANEL Routine 12/17/2024 10:24 AM CDT Dysuria Rash UA MICROSCOPIC WITH REFLEX TO CULTURE Routine 12/17/2024 9:46 AM CDT Dysuria UA MACROSCOPIC WITH REFLEX TO MICRO AND CULTURE Routine 12/17/2024 9:46 AM CDT Dysuria HEREDITARY GENOMICS HOLD FOR PREAUTHORIZATION Routine 12/09/2024 2:46 PM CDT EDS (Lizy-Danlos syndrome) Internal carotid artery dissection AVF (arteriovenous fistula) HIV ANTIGEN ANTIBODY COMBO Routine 07/22/2024 11:17 AM SYSTEMS ANALYSIS MANAGER Screening for HIV (human immunodeficiency virus) HEPATITIS C SCREEN REFLEX TO HCV RNA QUANT AND GENOTYPE Routine 07/22/2024 11:17 AM SYSTEMS ANALYSIS MANAGER Need for hepatitis C screening test LIPID REFLEX TO DIRECT LDL PANEL STAT 07/13/2024 12:40 PM CDT MA SCREENING BILATERAL W/ MAT Routine 04/25/2022 5:03 PM CDT Visit for screening mammogram from Last 3 Months or Most Recently Relevant to Health Maintenance Results * Octopus DMV (02/01/2025 1:05 PM CDT) Bindu Pappas, OD - 02/01/2025 1:05 PM CDT Performed by: Arianna . Patient cooperation: Reliable . Good Fixation, Dilated After VF. Right Eye Reliability of the test: Good . Findings: Visual thomas normal . Interpretation: Normal . Plan: Monitor . Interval: Initial . Left Eye Reliability of the test: Good . Findings: Visual thomas normal . Interpretation: Normal . Plan: Monitor . Interval: Initial . Bindu Myles OD OPHTHALMOLOGY Final Result * CBC with platelets and differential (01/25/2025 11:24 AM CDT) Only the most recent of2 resultswithin the time period is included. WBC Count 6.6 4.0 - 11.0 10e3/uL 01/25/2025 11:26 AM CDT [facility] RBC Count 4.39 3.80 - 5.20 10e6/uL 01/25/2025 11:26 AM CDT [facility] Hemoglobin 13.5 11.7 - 15.7 g/dL 01/25/2025 11:26 AM CDT [facility] LABORATORY Hematocrit 40.5 35.0 - 47.0 % 01/25/2025 11:26 AM CDT RM LABORATORY MCV 92 78 - 100 fL [...] - BLOOD ORDERABLES Fin al Result LABORATORY [facility] [place] [facility] [address] [facility] (no room number, 1st floor of clinic) [place] [id number], [place] * ANCA IgG by IFA with Reflex to Titer (01/25/2025 11:24 AM CDT) Neutrophil Cytoplasmic Antibody <1:10 <=1:10 01/26/2025 10:32 AM CDT UM SPECIALTY CORE/PROT/END O Neutrophil Cytoplasmic Antibody Pattern The ANCA IFA is <1:10. No further testing will be performed. 01/26/2025 10:32 AM CDT SPECIALTY CORE/PROT/END O Blood BLOOD SPECIMEN / Unknown Venipuncture / Unknown 01/25/2025 11:24 AM CDT 01/25/2025 11:24 AM CDT Any Joiner MD LAB - BLOOD ORDERABLES Fin al Result Performing Organization Address City/[facility]/ZIP Co de Phone Number SPECIALTY CORE/PROT/ENDO Specialty Core/Prot/Endo 500 [facility], [address] * IgE (01/25/2025 11:24 AM CDT) Immunoglobulin E 81 0 - 114 kU/L 01/26/2025 12:02 PM CDT SPECIALTY CORE/PROT/END O Blood BLOOD SPECIMEN / Unknown Venipuncture / Unknown 01/25/2025 11:24 AM CDT 01/25/2025 11:24 AM CDT Any Joiner MD LAB - BLOOD ORDERABLES Fin al Result SPECIALTY CORE/PROT/ENDO Specialty Core/Prot/Endo 500 [facility] [address] [facility], [address] * (ABNORMAL) CRP inflammation (01/25/2025 11:24 AM CDT) CRP Inflammation 10.11(H) <5.00 mg/L 01/26/2025 2:34 PM CDT LABORATORY Blood BLOOD SPECIMEN / Unknown Venipuncture / Unknown 01/25/2025 11:24 AM CDT 01/25/2025 11:24 AM CDT us Any Joiner MD LAB - BLOOD ORDERABLES Fin al Result LABORATORY [facility] [address] 1[address] floor, [address] [place] [address], [place] [phone] * (ABNORMAL) UA reflex to Microscopic (01/25/2025 10:42 AM CDT) Color Urine Yellow Colorless, Straw, Light Yellow, Yellow 01/25/2025 10:48 AM CDT LABORATORY Appearance Urine Clear Clear 01/26/20 10:48 AM CDT LABORATORY Glucose Urine Negative Negative mg/dL 01/25/2025 10:48 AM CDT LABORATORY Bilirubin Urine Negative Negative 10:48 AM CDT LABORATORY Ketones Urine Negative Negative mg/dL 01/25/2025 10:48 AM CDT LABORATORY Specific [employer] Urine 1.015 1.003 - 1.035 01/25/2025 10:48 [...] - URINE ORDERABLES Fin al Result LABORATORY [facility] [address] [facility] (no room number, 1st floor of clinic) [place] [phone], [place] * (ABNORMAL) Urine Microscopic Exam (01/25/2025 10:42 [...] - URINE ORDERABLES Fin al Result LABORATORY [facility] [place] [facility] [address] [facility] (no room number, 1st floor of clinic) [place] [phone], [place] * Pulmonary function test (01/19/2025 2:50 PM CDT) FVC-Pred 3.75 L [facility] PFT FVC-Pre 2.69 L [facility] PFT FVC-%Pred-Pre 71 % [facility] FEV1-Pre 1.98 L [facility]ZE PFT FEV1-%Pred-Pre 65 % [facility] PFT [id number] 81 % [facility]ZE PFT [id number]-Fqg 74 % [facility]REEZE PFT FEFMax-Pred 7.50 L/sec BREEZE PFT FEFMax-Pre 5.80 L/sec BREEZE PFT FEFMax-%Pred-Pr e 77 % BREEZE PFT [id number] 2.93 L/sec BREEZE PFT [id number] 1.42 L/sec BREEZE PFT [id number]-%Pred-P re 48 % BREEZE PFT [id number] 1.45 L/sec BREEZE PFT BOX2648-%Pred-P ost 49 % BREEZE PFT ExpTime-Pre 6.75 sec BREEZE PFT FIFMax-Pre 5.73 L/sec BREEZE PFT VC-Pred 3.88 L [facility]REEZE PFT VC-Pre 2.78 L [facility]REEZE PFT VC-%Pred-Pre 71 % BREEZE PFT IC-Pred 2.73 L [facility]ZE PFT IC-Pre 2.37 L [facility]REEZE PFT IC-%Pred-Pre 86 % [facility]ZE PFT ERV-Pred 1.37 L [facility]ZE PFT ERV-Pre 0.41 L [facility]REEZE PFT ERV-%Pred-Pre 30 % [facility]ZE PFT [id number]-Svox 83 % [facility]ZE PFT [id number]-Djf 74 % BREEZE PFT FRCPleth-Pred 3.23 L BREEZE PFT FRCPleth-Pre 2.61 L BREEZE PFT FRCPleth-%Pred- Pre 80 % BREEZE PFT RVPleth-Pred 1.92 L BREEZE PFT RVPleth-Pre 2.20 L BREEZE PFT RVPleth-%Pred-P re 114 % BREEZE PFT TLCPleth-Pred 5.69 L BREEZE PFT TLCPleth-Pre 4.98 L BREEZE PFT TLCPleth-%Pred- Pre 87 % BREEZE PFT DLCOunc-Pred 23.18 ml/min/mmHg BREEZE PFT DLCOunc-Pre 20.44 ml/min/mmHg BREEZE PFT DLCOunc-%Pred-P re 88 % [facility]REEZE PFT VA-Pre 4.08 L [facility]REEZE PFT VA-%Pred-Pre 72 % [facility]REEZE PFT [id number] 78 % [facility]REEZE PFT [id number]-Umr 71 % BREEZE PFT 01/19/2025 2:50 PM CDT Narrative BREEZE PFT - 01/20/2025 7:31 AM CDT The FVC and FEV1 are reduced but the FEV1/FVC ratio is normal. The inspiratory flow rates are within normal limits. Lung volumes are within normal limits. Following administration of bronchodilators, there is no significant response. The diffusing capacity is normal. However, the diffusing capacity was not corrected for the patient's hemoglobin. IMPRESSION: Non-specific spirometry pattern with normal lung volumes. Per ATS guidelines, this suggests airflow obstruction; clinical correlation is recommended. No significant change in spirometry following bronchodilators but this does not rule out clinical efficacy. Normal diffusing capacity. Jessica Deleon MD This interpretation has been electronically signed: JESSICA DELEON 01/20/2025 07:15:10 AM us Any Joiner MD PFT ORDERABLES Final Resu lt HEATHER PFT * NGS 11 or More Genes (01/12/2025 8:34 AM CDT) Blood BLOOD SPECIMEN / Unknown Venipuncture-No Charge / Unknown 01/12/2025 8:34 AM CDT 01/12/2025 8:34 AM CDT us Tete Wang MD LAB CHARGE PERFORMABLES Final Result MOLECULAR DIAGNOSTICS (LDL) Molecular Diagnostics 500 [facility], [address] * Next Generation Sequencing (01/12/2025 8:34 AM CDT) Specimen Description Blood: ACD 12/09/2024 2:46 PM CDT MOLECULAR DIAGNOSTICS (LDL) Significant Results TEST REQUESTED: Aortopathy and Capillary malformation-laurie riovenous malformation (CM-AVM) syndrome panel on genome backbone Next generation sequencing and copy number variation analysis of genes listed in 'Background' section below. RESULTS: NEGATIVE Pathogenic/Likely Pathogenic Variant(s): None Detected Variant(s) of Uncertain Significance: None Detected 12/09/2024 2:46 PM CDT MOLECULAR DIAGNOSTICS (LDL) Interpretation No pathogenic or likely pathogenic variants were detected in the genes analyzed. Therefore, a genetic cause for this patient's symptoms was not identified. Genetic counseling regarding these results is recommended. (Electronically signed by: Son Landers MD January 26, 2025 12:22 PM) 12/09/2024 2:46 PM CDT MOLECULAR DIAGNOSTICS (LDL) Lab PDF Result 12/09/2024 2:46 PM CDT MOLECULAR DIAGNOSTICS (LDL) Test Details BACKGROUND: Genome Backbone Panel - Aortopathy and CM-AVM syndrome: ACTA2, ACVRL1, ZIUZJE35, ARIH1, BGN, BMPR2, CBS, COL3A1, COL5A1, COL5A2, EFEMP2, ENG, EPHB4, FBN1, FBN2, FLNA, FOXE3, GDF2, HCN4, LOX, LTBP3, MAT2A, MED12, MFAP5, MYH11, MYLK, NOTCH1, PLOD1, PLOD3, PRKG1, PTEN, RASA1, SKI, YNV3Y58, SMAD2, SMAD3, SMAD4, SMAD6, TGFB2, TGFB3, TGFBR1, TGFBR2, THSD4 When indicated, EPCAM and GREM1 are analyzed for copy number variants only; the promoter regions of APC, BMPR1A, BRCA1, BRCA2, MLH1, MSH2, PTEN, SMAD4, and TP53 are analyzed for sequence variants; the promoter regions of APC, BMPR1A, BRCA1, BRCA2, GREM1, PTEN, and TP53 are analyzed for copy number variants. Due to the presence of a highly homologous pseudogene, variants in exons 12-15 of PMS2 are unable to be analyzed by this assay. COVERAGE: This analysis is limited to the coding exons and immediately adjoining intronic sequences of the analyzed genes. Coverage is only guaranteed for biologically relevant transcripts, as defined in the LRG database. Coverage minimums are not guaranteed for intronic positions. Therefore, intronic variants cannot be confirmed or excluded with the same degree of confidence as coding exonic variants. With the exception of a limited set of known pathogenic variants, sequences residing more than 25 base pairs from a coding exon are not routinely analyzed. A list of these supplemental positions is available upon request. The proportion of coding bases covered at 15x and 20x coverage are reported below. Sensitivity is reduced in regions with less than 20x coverage, and variants cannot be confidently excluded in regions with <15x coverage. A list of specific regions not meeting these minimum thresholds is available upon request. Percentage of 'sequenceable' bases in reflex genes covered at 15x: 99.77 Percentage of 'sequenceable' bases in reflex genes covered at 20x: 99.65 METHODOLOGY: [Sydnee et al., 2015][Yifan et al., 2014]: This testing was performed using a whole genome sequencing backbone, with informatic filtering to the requested genes in this panel. Genomic DNA is extracted using the QIAamp DNA Blood Midi Kit or QIAamp DNeasy Blood and Tissue kit. Following DNA quantification, library creation is performed using Illumina whole genome DNA prep reagents. DNA sequencing is performed at the [facility] on an Illumina GlucoTecq or Nextseq instrument with paired-end 150 base pair reads. Reads are mapped to the human genome reference sequence HG19 using the BWA algorithm and variant calling is performed with the GATK4.1 genotyper. Variants are interpreted according to guidance issued by the [employer] [place] [employer] (Zhou et al.2015). Structural variant calls (deletions and duplications) were made using the [employer] software package. This package utilizes the Lumpy algorithm to assess breakpoint evidence and the CNVnator algorithm to assess for read-depth evidence. Sequence variants and copy number variants are restricted to the requested genes using a validated custom script. Variants in other regions of the genome are not analyzed as part of this testing. Pathogenic and predicted pathogenic variants that meet ALL of the following criteria are reported without validation by Francine sequencin- single nucleotide substitution, 2- receives a PASS from the SNP or indel filter, 3- has a VAF in the accepted range (heterozygous = 0.3-0.6, homozygous/hemizy gous >0.9), 4- has a minimum of 20x coverage. Pathogenic variants that fail to meet any of these criteria are verified by Francine sequencing prior to reporting [Koby et al., 2015]. The following types of variants are not included in the clinical report, but information about these variants is available upon request: *Missense variants that are present at >1% MAF in population databases AND are not reported as pathogenic/likely pathogenic in ClinVar. *Missense variants with a MAF <1% that are classified as benign or likely benign according to published ACMG criteria. *Synonymous variants that do not occur at an intron/exon boundary, are not reported as pathogenic/likely pathogenic in relevant clinical databases, and are present in 50 or more individuals in gnomAD. *Intronic variants that reside more than 5 bps from an intron/exon boundary AND are not reported as pathogenic/likely pathogenic in ClinVar. Known pathogenic variants residing 5-25 bps from an intron/exon boundary will be reported. *Untranslated region (UTR) variants not previously reported as pathogenic/likely pathogenic in relevant clinical databases. *Some variants may be excluded based on review of sequencing quality data. It is possible that some low quality variants are, in fact, real. LIMITATIONS: This analysis has not been validated for detection of insertion/deletio n mutations larger than 18bp in length. The size of polymorphic repetitive sequences, such as CAG repeats, intronic dinucleotide repeats, or intronic polyT/polyA sequences, cannot be determined by this analysis. Due to issues with GC content, the presence of a pseudogene, and/or repetitive sequences, detection of sequence and/or copy number variants is not possible in a limited number of regions, even when coverage exceeds 20x. Each of the following genes contains one or more exons that cannot be adequately analyzed due to these issues: CCDC40, GEO, CES1, CISD2, DSPP, ESPN, FMN2, GCSH1, GNAS, GP1BA, HYDIN, KMT2C, KRT8, RADHA, MUC5B, NEFH, OTOA, PKD1, PPA2, PSPH, RBMX, RP1L1, RPS17, SHANK3, SP110, STRC, TRIOBP, TTN, LQA220. A list of genes with a highly similar homolog or pseudogene for which specificity/sensi tivity may be reduced is available at https://www.ncbi. nlm.nih.gov/books /ANH028067/. Additional details are available upon request. REFERENCES: Koby AC, Adilene Saez, Barbara LB, Olaf C, Yifan Winkler, et al. 2015. Criteria for Clinical Reporting of Variants from a Broad Target Capture NGS Assay without Francine Verification. JSM biomarkers 2(1):1005. Yifan Winkler, Silvana Mendiola MD, Mark Sims, Pearl KB, Maty A, Sydnee S, Urvashi M, Adilene Saez, Yoel KA, Leesa B. 2014. Implementation of [place] based next generation sequencing data analysis in a clinical laboratory. BMC Res Notes. 7:314. PMID: 23877668. Abelardo S, Yuridia N, Marvin S, Monica D, Amanuel S, Elissa J, Xochitl OCAMPO, Johanna Saez, Garland Beckford, Clarence Beckford, Dulce Ibrahim, Jessica HL, [facility] [employer] Committee. 2015. Standards and guidelines for the interpretation of sequence variants: a joint consensus recommendation of the [place] College [employer] Medical Genetics and Genomics and the Association for Molecular Pathology. Deja. Med. 17(5):405-24. PMID: 34029655. Shanell JA, Dianelys AW, O'Xavier TD, Alexey W, Elias EE, Maikel S, Quintero S, R, Howell X, Xander G, Lc HM, Rio D, Lorena SM, Trino S, Jeanette MJ, Jeannette G, Madison D, Pritesh DA, Miladys E, Jamarcus S, Reza CD, Charlette MCFADDEN, Skye LINDER, Rocael GO, [place] GO, NHL Exome Sequencing Project. 2012. Evolution and functional impact of rare coding variation from deep sequencing of human exomes. Science. 337(3536):64-9. PMID: 67859024. Sydnee S, Maty A, Obi K, Cinthya T, Adliene M, Urvashi M, Yifan G, Robert J, Paloma J, Elvis Y, Dalia Martines, Silvana ESPINOZA, Pearl Ibrahim, Yoel KA, Leesa B. 2015. Clinical validation of targeted next-generation sequencing for inherited disorders. Arch. Pathol. Lab. Med. 139(2):204-10. PMID: 98681930. If a patient is the recipient of an allogeneic bone marrow transplant, this test must be done on a pretransplant sample or buccal swab. A previous allogeneic bone marrow transplant will interfere with test results. Call the Molecular Diagnostics Lab ([phone]) for instructions on sample collection for these patients. This test was developed and its performance characteristics determined by the [facility], Molecular Diagnostics Laboratory. It has not been cleared or approved by the FDA. The laboratory is regulated under CLIA as qualified to perform high-complexity testing. This test is used for clinical purposes. It should not be regarded as investigational or for research. 12/09/2024 2:46 PM CDT MOLECULAR DIAGNOSTICS (LDL) Blood BLOOD SPECIMEN / Unknown Venipuncture-No Charge / Unknown 01/12/2025 8:34 AM CDT 01/12/2025 8:34 AM CDT Tete Wang MD LAB - GENOMICS Final Result UM MOLECULAR DIAGNOSTICS (LDL) [facility] Molecular Diagnostics 500 [facility], [address] [place] [address] * Audiogram/Tympanogram ??? Interface (01/08/2025 9:00 AM CDT) 01/08/2025 9:00 AM CDT us Provider Unknown PROCEDURES Final Result * Audiology Result Other - HIM Scan (01/08/2025 12:00 AM CDT) 01/08/2025 us Provider Outside PROCEDURES Final Result * Basic metabolic panel (Ca, Cl, CO2, Creat, Gluc, K, Na, BUN) (12/17/2024 10:24 AM CDT) Sodium 140 135 - 145 mmol/L 12/17/2024 3:22 PM CDT [facility] Potassium 4.0 3.4 - 5.3 mmol/L 12/17/2024 3:22 PM CDT [facility] Chloride 100 98 - 107 mmol/L 12/17/2024 3:22 PM CDT [facility] Carbon Dioxide (CO2) 29 22 - 29 mmol/L 12/17/2024 3:22 PM CDT [facility] Anion Gap 11 7 - 15 mmol/L 12/17/2024 3:22 PM CDT [facility] Urea Nitrogen 13.2 6.0 - 20.0 mg/dL 12/17/2024 3:22 PM CDT [facility] Creatinine 0.81 0.51 - 0.95 mg/dL 12/17/2024 3:22 PM CDT [facility] GFR Estimate 89 >60 mL/min/1.7 3m2 12/17/2024 3:22 PM CDT [facility] Comment:eGFR calculated usin g 2020 CKD-EPI equation. Calcium 10.0 8.8 - 10.4 mg/dL 12/17/2024 3:22 PM CDT [facility] Glucose 89 70 - 99 mg/dL 12/17/2024 3:22 PM CDT [facility] Blood BLOOD SPECIMEN / Unknown Venipuncture / Unknown 12/17/2024 10:24 AM CDT 12/17/2024 10:24 AM CDT Denise Woodson APRN INDUSTRIAL TECHNICIAN LAB - BLOOD ORDERABLES Final Result [facility] LABORATORY [facility] [place] [facility] 500 [facility], [address] [place] [address], [facility] * (ABNORMAL) UA Microscopic with Reflex to Culture (12/17/2024 9:46 AM CDT) Bacteria Urine Few(A) None Seen /HPF [facility] 12/17/2024 10:01 AM CDT RM LABORATORY RBC Urine 0-2 0-2 /HPF /HPF PR[facility]K 12/17/2024 10:01 AM CDT RM LABORATORY WBC Urine 0-5 0-5 /HPF /HPF [facility] 12/17/2024 10:01 AM CDT RM LABORATORY Squamous Epithelials Urine Few(A) None Seen /LPF [facility] 12/17/2024 10:01 AM CDT RM LABORATORY Urine URINE SPECIMEN OBTAINED BY CLEAN CATCH PROCEDURE / Unknown Non-blood Collection / Unknown 12/17/2024 9:46 AM CDT 12/17/2024 9:46 AM CDT Narrative RM LABORATORY - 12/17/2024 10:01 AM CDT Urine Culture not indicated Denise Woodson APRN INDUSTRIAL TECHNICIAN LAB - URINE ORDERABLES Final Result RM LABORATORY [facility] [place] [facility] [address] [facility] (no room number, 1st floor of clinic) [place] [address], [facility] * (ABNORMAL) UA Macroscopic with reflex to Microscopic and Culture - Lab Collect (12/17/2024 9:46 AM CDT) Color Urine Yellow Colorless, Straw, Light Yellow, Yellow 12/17/2024 10:01 AM CDT LABORATORY Appearance Urine Clear Clear 12/18/19 10:01 AM CDT LABORATORY Glucose Urine Negative Negative mg/dL 12/17/2024 10:01 AM CDT LABORATORY Bilirubin Urine Negative Negative 10:01 AM CDT LABORATORY Ketones Urine Negative Negative mg/dL 12/17/2024 10:01 AM CDT LABORATORY Specific [employer] Urine <=1.005 1.003 - 1.035 12/17/2024 10:01 AM CDT LABORATORY Blood Urine Trace(A) Negative 12/17/2024 10:01 AM CDT LABORATORY pH Urine 6.0 5.0 - 7.0 12/17/2024 10:01 AM CDT LABORATORY Protein Albumin Urine Negative Negative mg/dL 12/17/2024 10:01 AM CDT LABORATORY Urobilinogen Urine 0.2 0.2, 1.0 E.U./dL 12/17/2024 10:01 AM CDT LABORATORY Nitrite Urine Negative Negative 12/17/2024 10:01 AM CDT LABORATORY Leukocyte Esterase Urine Trace(A) Negative 12/17/2024 10:01 AM CDT LABORATORY Urine URINE SPECIMEN OBTAINED BY CLEAN CATCH PROCEDURE / Unknown Non-blood Collection / Unknown 12/17/2024 9:46 AM CDT 12/17/2024 9:46 AM CDT us Denise Woodson APRN INDUSTRIAL TECHNICIAN LAB - URINE ORDERABLES Final Result LABORATORY [facility] [place] [facility] [address] [facility] (no room number, 1st floor of clinic) [place] [address], [facility] * [facility] [employer] Hold For Preauthorization: (12/09/2024 2:46 PM CDT) Interpretation Sample processed in lab for DNA for genetic testing. Insurance preauthorization will be initiated. Contact lab with questions, . (Electronically signed by: Yesenia Bedoya December 10, 2024 2:42 PM) 12/10/2024 2:42 PM CDT MOLECULAR DIAGNOSTICS (LDL) Blood STRUCTURE OF LEFT UPPER LIMB / Unknown Venipuncture / Unknown 12/09/2024 2:46 PM CDT 12/09/2024 2:52 PM CDT Tete Wang MD LAB - GENOMICS Final Result Performing Organization Address City/[facility]/ZIP Co de Phone Number MOLECULAR DIAGNOSTICS (LDL) [facility] Molecular [facility] 500 [facility], [address] * HIV Antigen Antibody Combo (07/22/2024 11:17 AM SYSTEMS ANALYSIS MANAGER) HIV Antigen Antibody Combo Nonreactive Nonreactive 07/23/2024 2:55 AM SYSTEMS ANALYSIS MANAGER [facility] Comment:Negative HIV-1 p24 a ntigen [...] Unknown Venipuncture / Unknown 07/22/2024 11:17 AM SYSTEMS ANALYSIS MANAGER 07/22/2024 11:17 AM SYSTEMS ANALYSIS MANAGER us Denise Woodson APRN, CNP LAB - BLOOD ORDERABLES Final Result [facility] 500 [facility], [address] [id number] * Hepatitis C Screen Reflex to HCV RNA Quant and Genotype (07/22/2024 11:17 AM SYSTEMS ANALYSIS MANAGER) Hepatitis C Antibody Nonreactive Nonreactive 07/23/2024 10:25 AM SYSTEMS ANALYSIS MANAGER [facility] Comment:A nonreactive screen ing test [...] Unknown Venipuncture / Unknown 07/22/2024 11:17 AM SYSTEMS ANALYSIS MANAGER 07/22/2024 11:17 AM SYSTEMS ANALYSIS MANAGER us Denise Woodson APRN INDUSTRIAL TECHNICIAN LAB - BLOOD ORDERABLES Final Result [facility] [address] [facility], [address] [place] [address] * (ABNORMAL) Lipid panel reflex to direct [...] inal Result [facility] [address] [facility] [address], [address] [place] [address], [facility] LABORATORY [facility] [address], [address] [place] [address], [facility] [phone] * [place] Screen Bilateral w/Mat (04/25/2022 5:03 [...] IRMA HOWELL MD us Denise Woodson APRN INDUSTRIAL TECHNICIAN IMG MAMMOGRAPHY ORDERAB LES Final Result from Last 3 Months or Most Recently Relevant to Health Maintenance Additional Health Concerns Active Problems Noted Date Diagnosed Date MYC ECC DEP [place]COM[place]- PROBLEM TEMPLATE 02/15/2025 MYC ECC DEP [place]- PROBLEM TEMPLATE 02/22/2025 MYC ECC DEP [place]- PROBLEM TEMPLATE 03/01/2025 MYC ECC DEP [place]- PROBLEM TEMPLATE 03/08/2025 Insurance [facility] OUT OF STATE BCBS OUT OF STATE * Guarantor: Candy Adame Account Type Relation to Patient Date of Phone Billing Address 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 [address] , [address] [place] [address] * Guarantor: lAcon Zamora Account Type Relation to Patient Date of Phone Billing Address Medication Therapy Self [address] [place] [id number] Advance Directives For more information, please contact: [phone] * Full Code (Latest Code Status on [...] patie nt/ legal decision maker Care Teams International Sourcing Manager Relationship Specialty Start Date End Date Winston Villatoro OD [facility] [place] [address] [place] [address] PCP - Ophthalmology Ophthalmology 02/11/13 Denise Woodson APRN INDUSTRIAL TECHNICIAN [address] [place] [address] PCP - General Family Practice 09/21/20 Denise Woodson APRN INDUSTRIAL TECHNICIAN [address] [address] [id number] Assigned PCP 07/17/20 Usha Simon APRN INDUSTRIAL TECHNICIAN [address] [facility] [id number] [place] [address] Nurse Practitioner Neurological Surgery 01/24/24 Dangelo Salinas MD [address] [place] [address] Neurology 01/27/24 [facility] [address] [place] [address] Pharmacist Pharmacist 05/25/24 [facility] [address] [place] [address] Assigned MTM Pharmacist 06/08/24 Fabi Coates MD [address] [facility] [address] [place], [place] [address] Genetics, Clinical 06/18/24 Arthur Salas, [facility] [address] [place] [address] Assigned Behavioral Health Provider 08/08/24 Randy Maradiaga DO [address] [place], [place] [id number] Assigned Neuroscience Provider 08/08/24 [place] [address] [place] [address] Genetics, Clinical 10/30/24 Dahlia Joyce MD [address] [place] [address] Radiology Neuroradiology 11/17/24 Lisa Zambrano MD [address] [facility] [address] [place] [address] Assigned Heart and Vascular Provider 12/06/24 Tete Wang MD [address] [place], [place] [address] Assigned Pediatric Specialist Provider 01/06/25 Any Joiner MD [address] [place] [address] [address] [place], [place] [id number] Assigned Pulmonology Provider 02/05/25
--- OUTSIDE RECORDS SUMMARY | 2025-03-09 12:29 | XMS_ITS | Encounter Summary ---
Author Organization [facility] Address [address] [place] [address] Care Team Providers Care Automatic Profile Shaper Operator Name Role Phone Winston Villatoro Se OD Unavailable [phone] Denise Woodson APRN INTELLIGENCE INTERN Unavailable +[phone] Denise Woodson APRN INTELLIGENCE INTERN Primary Care Provider Usha Simon APRN INTELLIGENCE INTERN Unavailable + [phone] Dangelo Salinas MD Unavailable Anastasia Stearns RN Unavailable Germaine Aleman CHW Unavailable [phone] Lisa Zambrano MD Unavailable Raul Hoyos MD Unavailable Joya Lira [facility] Unavailable +[phone] Joya Lira [facility] Unavailable +[phone] Fabi Coates MD Unavailable [phone] Robin Zepeda MD Unavailable [phone] Danna Cardenas PA-C Unavailable +[phone] Felicita Desai RN Unavailable Unavailab Arthur Rios PAINT FACTORY WORKER Unavailable +[phone] Randy Maradiaga DO Unavailable + Tete Wang MD Unavailable Dahlia Joyce MD Unavailable +[phone] Lisa Zambrano MD Unavailable + [phone] Tete Wang MD Unavailable [phone] Any Joiner MD Unavailable [phone] Encounter Details Date Type Department Care Team (Late st Contact Info) Description 05/15/2024 MyC Medical Advice [facility] [address] 3rd [place] [phone] Stacey Kelley, RN Social History Tobacco Use [...] Answer Date Recorded PHQ-2 Score 2 05/05/2024 [facility] [place] of Occupat ional Health - Occupational Stress [...] on file 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 Gender Identity Not on file Sexual [...] 03/16/2025 8:00 AM CDT Virtual Visit [address] [phone] Bindu Bueno, OD 909 [place], [place] 9[address] Rubi Johnson, OT [address] 459[address] 03/26/2025 12:45 PM CDT Therapy Visit [address] [phone] Bindu Bueno, OD 909 [place], [place] 1287[address] Rubi Johnson, OT [address] [address] 04/02/2025 9:30 AM CDT Therapy Visit [address] [phone] Randy Maradiaga, DO 909 [place], [place] 869795 Delicia George, PT 150 [place] [address] 04/06/2025 11:00 AM CDT Virtual Visit [address] [place] [phone] Bindu Bueno, OD 909 [place], [place] 88[address] Rubi Johnson, OT [address] 006417 04/06/2025 12:30 PM CDT Therapy Visit [address] [phone] Randy Maradiaga, DO [address] [place] [address] Delicia George, PT [address] [place] [address] 04/16/2025 11:00 AM CDT Therapy Visit [address] [phone] Bindu Bueno, OD 909 [place], [place] 3670[address] Rubi Johnson, OT [address] [address] 04/23/2025 12:45 PM CDT Therapy Visit [address] [phone] Bindu Bueno, OD 909 [place] [address] Rubi Johnson, OT [address] [address] 04/23/2025 2:00 PM CDT Therapy Visit [address] [phone] Randy Maradiaga, DO [address] [place] [address] Delicia George, PT [address] [place] [address] 04/30/2025 10:15 AM CDT Therapy Visit [address] [phone] Randy Maradiaga, DO [address] [place] [address] Delicia George, PT 150 [place], [place] 160967 05/04/2025 11:00 AM CDT Virtual Visit [address] [phone] Bindu Bueno, OD 909 [place] [address] Rubi Johnson, OT [address] 239787 05/07/2025 10:15 AM CDT Therapy Visit [address] [phone] Randy Maradiaga, DO [address] [place] [address] Delicia George, PT [address] [place] [address] 05/14/2025 10:15 AM CDT Therapy Visit [address] [phone] Randy Maradiaga, [address] [place] [address] Delicia George, PT [address] [facility] [place] [address] 05/14/2025 11:00 AM CDT Therapy Visit [address] [phone] Bindu Bueno, OD [address] [place] [address] 955845 Rubi Johnson, [address] [address] 06/01/2025 11:15 AM CDT Appointment [facility] Imaging [address] [place] [phone] Robin Zepeda MD [address] [place] [address] 06/02/2025 2:20 PM CDT Virtual Visit [facility] Neuro[facility] [address] 3rd [place] [phone] Robin Zepeda MD [address] [place] [address] 07/01/2025 12:00 PM CDT Virtual Visit [facility] [place] [address] [place] [address] 3rd [place] [phone] [place], [facility] [address] [place] [address] 309105 08/03/2025 4:30 PM BLENDING SUPERVISOR Virtual Visit [facility] [address] [phone] Any Joiner MD [address] [facility] 276 [place], [place] 225655 documented as of this encounter Visit Diagnoses Not on filedocumented in this encounter Additional Health Concerns Infection Onset Date Last Indicated Resolved Time Rule Out COVID-19 09/13/2024 09/13/2024 09/13/2024 12:31 PM BLENDING SUPERVISOR Rule Out COVID-19 11/14/2024 11/14/2024 11/14/2024 8:25 PM BLENDING SUPERVISOR Assessment Noted Time PHQ-9 Depression Total Score: 5 03/17/20 24 9:45 AM CDT documented as of this encounter Care Teams Automatic Profile Shaper Operator Relationship Specialty Start Date End Date Winston Villatoro, AMELIE [facility] [address] [place] [address] PCP - Ophthalmology Ophthalmology 02/11/13 Denise Woodson APRN INTELLIGENCE INTERN [address] [address] PCP - General Family Practice 09/21/20 Denise Woodson APRN INTELLIGENCE INTERN [address] [address] Assigned PCP 07/17/20 Usha Simon APRN INTELLIGENCE INTERN [address] [id number] Nurse Practitioner Neurological Surgery 01/24/24 Dangelo Salinas MD [address] [place], [place] [phone] Neurology 01/27/24 Anastasia Stearns, RN Lead Key Account Executive 02/06/24 12/17/24 Germaine Aleman, W Community Health Worker Primary Care - CC 02/18/2412/17/24 Lisa Zambrano MD 6[address] [facility] [address] [place] [address] Assigned Heart and Vascular Provider 05/08/24 07/07/24 Raul Hoyos MD [address] [place] [address] 491345 Assigned Neuroscience Provider 05/08/24 07/07/24 Joya Lira Joleen [address] [address] Pharmacist Pharmacist 05/25/24 Joya Lira RPH [address] [place] [address] Assigned MTM Pharmacist 06/08/24 Fabi Coates MD [address] [place] [address] 75 [place] [address] Genetics, Clinical 06/18/24 Robin Zepeda MD 9 [facility] PM6802UE [place] [address] Assigned Neuroscience Provider 07/08/24 08/07/24 Danna Cardenas PA-C 6405 [place] [address] Assigned Heart and Vascular Provider 07/08/24 12/05/24 Felicita Desai, GEMA Lead Key Account Executive 07/14/24 07/28/24 Arthur Salas [facility] [address] [place] [address] Assigned Behavioral Health Provider 08/08/24 Randy Maradiaga DO [address] [place] [address] 135945 Assigned Neuroscience Provider 08/08/24 Tete Wang MD 2450 [place] [address] Genetics, Clinical 10/30/24 Dahlia Joyce MD [address] [place] [address] Radiology Neuroradiology 11/17/24 Lisa Zambrano MD 6405 [facility] [address] [place] [address] Assigned Heart and Vascular Provider 12/06/24 Tete Wang MD 2450 [place] [address] Assigned Pediatric Specialist Provider 01/06/25 Any Joiner MD [address] [facility] [address] [place], [place] [address] Assigned Pulmonology Provider 02/05/25 documented as of this encounter
--- OUTSIDE RECORDS SUMMARY | 2025-03-09 12:29 | XMS_ITS | Encounter Summary ---
Author Organization [facility] Address [address] [place] [address] Care Team Providers Care Practicing Md Anesthesiologist Name Role Phone Winston Villatoro Se OD Unavailable [phone] Denise Woodson APRN SYSTEM ADMINISTRATION MANAGER Unavailable [phone] Denise Woodson APRN SYSTEM ADMINISTRATION MANAGER Primary Care Provider Usha Simon APRN SYSTEM ADMINISTRATION MANAGER Unavailable + [phone] Dangelo Salinas MD Unavailable Anastasia Stearns RN Unavailable [phone] Germaine Aleman CHW Unavailable [phone] Joya Lira RP Unavailable [phone] Joya Lira [facility] Unavailable Fabi Coates MD Unavailable [phone] Robin Zepeda MD Unavailable [phone] Danna Cardenas PA-C Unavailable [phone] Felicita Desai RN Unavailable Unavailab Arthur Rios Unavailable +[phone] Randy Maradiaga DO Unavailable + Tete Wang MD Unavailable [phone] Dahlia Joyce MD Unavailable Lisa Zambrano MD Unavailable [phone] Tete Wang MD Unavailable Any Joiner MD Unavailable [phone] Encounter Details Date Type Department Care Team (Late st Contact Info) Description 07/16/2024 MyC Medical Advice [facility] [place] [address] [place] [address] Arthur Salas, [facility] [address] [place] [address] Social History Tobacco Use Types Packs/Day Years [...] How often do you attend mandaen or mu-ism serv ices? 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 Wish to be (Lifetime) No 07/16/2024 11:46 AM CDT Sinyigaya, Speci ose, PRINCIPAL SECRETARY 2. Non-Specific Active Suicidal Thoughts (Lifetime) No 07/16/2024 11:46 AM CDT Sinyiga ya, Speciose, PRINCIPAL SECRETARY * Suicidal Behavior Question Answer Date of Assessment Author Actual Attempt (Lifetime) No 07/16/2024 11:4 6 AM CDT Sinyigaya, Speciose, PRINCIPAL SECRETARY Has subject engaged in non-suicidal self-injurious behavior? (Lifetime) No 07/16/2024 11:46 AM CDT Sinyigaya, Spec iose, PRINCIPAL SECRETARY Interrupted Attempts (Lifetime) No 07/16/2024 11:46 AM CDT Sinyigaya, Speci ose, PRINCIPAL SECRETARY Aborted or Self-Interrupted Attempt (Lifetime) No 07/16/2024 11:46 AM CDT Sinyigaya, Speci ose, PRINCIPAL SECRETARY Preparatory Acts or Behavior (Lifetime) No 07/16/2024 11:46 AM CDT Sinyigaya, Speci ose, PRINCIPAL SECRETARY documented as of this encounter Plan of Treatment Upcoming Encounters Date Type Department Care Team (Late st Contact Info) Description 03/16/2025 8:00 AM CDT Virtual Visit [facility] 150 [place] [phone] Bindu Bueno, OD 909 [place], [place] 484745 Rubi Johnson, OT [facility] 150 [place], [place] [address] 03/26/2025 12:45 PM CDT Therapy Visit [address] [phone] Bindu Bueno, OD 909 [place] [address] Rubi Johnson, OT [address] [address] 04/02/2025 9:30 AM CDT Therapy Visit [address] [phone] Randy Maradiaga, DO [address] [place] [address] 341525 Delicia George, PT 150 [place] [address] 04/06/2025 11:00 AM CDT Virtual Visit [address] [phone] Bindu Bueno, OD 909 [place] [address] Rubi Johnson, OT [address] [address] 04/06/2025 12:30 PM CDT Therapy Visit [address] [phone] Randy Maradiaga, DO [address] [place] [address] Delicia George, PT [address] [place], [place] 821657 04/16/2025 11:00 AM CDT [facility] [address] [place] [phone] Bindu Bueno, OD 909 [place], [place] 685885 Rubi Johnson, OT [address] 699847 04/23/2025 12:45 PM CDT Therapy Visit [address] [phone] BuenoBindu, OD 909 [place] [address] Rubi Johnson, OT [address] [address] 04/23/2025 2:00 PM CDT Therapy Visit [address] [phone] Randy Maradiaga, DO 909 [place] [address] Delicia George, PT [address] [place] [address] 04/30/2025 10:15 AM CDT Therapy Visit [address] [phone] Randy Maradiaga, DO [address] [place] [address] Delicia George, PT 150 [facility] [place] [address] 05/04/2025 11:00 AM CDT Virtual Visit [address] [phone] Bindu Bueno, OD 909 [place] [address] Rubi Johnson, OT [address] [address] 05/07/2025 10:15 AM CDT Therapy Visit [address] [phone] Randy Maradiaga, DO [address] [place] [address] Delicia George, PT 150 [place] [address] 05/14/2025 10:15 AM CDT Therapy Visit [address] [phone] Radny Maradiaga, DO [address] [place] [address] Delicia George, PT 150 [place] [address] 05/14/2025 11:00 AM CDT Therapy Visit [facility] [address] [place] [phone] Myles Bindu, OD [address] [place] [address] Rubi Johnson, OT [facility] 150 [place] [address] 06/01/2025 11:15 AM CDT Appointment [facility] Specialty Care Center Imaging [address] [place] [phone] Robin Zepeda MD [address] [place] [address] 488405 06/02/2025 2:20 PM CDT Virtual Visit [facility] [address] [phone] Robin Zepeda MD [address] [place] [address] 516545 07/01/2025 12:00 PM CDT Virtual Visit [facility] [address] [phone] [place] [facility] [address] [place] [address] 318495 08/03/2025 4:30 PM LIEUTENANT FIREFIGHTER Virtual Visit [facility] Clinic [address] [phone] Any Joiner MD [address] [place] [address] 587135 documented as of this encounter Visit Diagnoses Not on filedocumented in this encounter Additional Health Concerns Infection Onset Date Last Indicated Resolved Time Rule Out COVID-19 09/13/2024 09/13/2024 09/13/2024 12:31 PM LIEUTENANT FIREFIGHTER Rule Out COVID-19 11/14/2024 11/14/2024 11/14/2024 8:25 PM LIEUTENANT FIREFIGHTER Assessment Noted Time PHQ-9 Depression Total Score: 14 024 11:46 AM CDT documented as of this encounter Care Teams Practicing Md Anesthesiologist Relationship Specialty Start Date End Date ShaunaWinston moralez OD [facility] [place] [address] [facility] [address] [place] [address] PCP - Ophthalmology Ophthalmology 02/11/13 Denise Woodson APRN SYSTEM ADMINISTRATION MANAGER [address] [place] [address] PCP - General Family Practice 09/21/20 Denise Woodson APRN SYSTEM ADMINISTRATION MANAGER [address] [place] [address] Assigned PCP 07/17/20 Usha Simon APRN SYSTEM ADMINISTRATION MANAGER 909 [facility], [place] 717845 Nurse Practitioner Neurological Surgery 01/24/24 Dangelo Salinas MD [address] [place], [place] [phone] Neurology 01/27/24 Anastasia Stearns, RN Lead Scalp Treatment Operator 02/06/24 12/17/24 Germaine Aleman, W Community Health Worker Primary Care - CC 02/18/2412/17/24 Soraya Joya, [facility] [address] [facility] [place] [address] Pharmacist Pharmacist 05/25/24 Soraya Joya [facility] [address] [place] [address] Assigned MTM Pharmacist 06/08/24 Fabi Coates MD [address] [place] [address] 75 [place], [place] 962325 Genetics, Clinical 06/18/24 Robin Zepeda MD [address] [place], [place] [address] [place], [place] [address] Assigned Neuroscience Provider 07/08/24 08/07/24 Danna Cardenas PA-C [address] [place] [address] 273485 Assigned Heart and Vascular Provider 07/08/24 12/05/24 Felicita Desai RN Lead Scalp Treatment Operator 07/14/24 07/28/24 Arthur Salas [facility] [address] [address] Assigned Behavioral Health Provider 08/08/24 Randy Maradiaga DO [address] [place] [address] 557405 Assigned Neuroscience Provider 08/08/24 Tete Wang MD [address] [place] [address] 323374 Genetics, Clinical 10/30/24 Dahlia Joyce MD 909 [place] [address] Radiology Neuroradiology 11/17/24 Lisa Zambrano MD [address] [facility] [place] [address] Assigned Heart and Vascular Provider 12/06/24 Tete Wang MD [facility]0 [place], [place] 011364 Assigned Pediatric Specialist Provider 01/06/25 Any Joiner MD [address] [place] [address] 276 [place], [place] 562485 Assigned Pulmonology Provider 02/05/25 documented as of this encounter
--- OUTSIDE RECORDS SUMMARY | 2025-03-09 12:29 | XMS_ITS | Encounter Summary ---
Author Organization [place] Address [address] [place] [address] Care Team Providers Care Postal Superintendent Name Role Phone Winston Villatoro Se OD Unavailable [phone] Denise Woodson APRN STONE AND PLATE PREPARER APPRENTICE Unavailable +[phone] Denise Woodson APRN STONE AND PLATE PREPARER APPRENTICE Primary Care Provider Usha Simon APRN STONE AND PLATE PREPARER APPRENTICE Unavailable + [phone] Dangelo Salinas MD Unavailable Anastasia Stearns RN Unavailable Germaine Aleman CHW Unavailable +[phone] Robin Zepeda MD Unavailable Lisa Zambrano MD Unavailable [phone] Raul Hoyos MD Unavailable Joya Lira [facility] Unavailable [phone] Joya Lira [facility] Unavailable +[phone] Fabi Coates MD Unavailable [phone] Robin Zepeda MD Unavailable Danna CardenasC Unavailable +[phone] Felicita Desai RN Unavailable Unavailab Arthur Rios Unavailable +[phone] Randy Maradiaga DO Unavailable + Tete Wang MD Unavailable +[phone] Dahlia Joyce MD Unavailable +[phone] Lisa Zambrano MD Unavailable + [phone] Tete Wang MD Unavailable +[phone] Any Joiner MD Unavailable +[phone] Encounter Details Date Type Department Care Team (Late st Contact Info) Description 03/16/[address] [facility] Neurology [facility] [address] [place] [address] Ora Bazan Social History Tobacco [...] How often do you attend synagogue or caodaism serv ices? 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 Gender Identity Not on file Sexual [...] Description 03/16/2025 8:00 AM CDT Virtual Visit [address] [phone] Bindu Bueno, OD 909 [place], [place] [address] Rubi Johnson, OT [address] [address] 03/26/2025 12:45 PM CDT Therapy Visit [address] [phone] MylesMagaliBindu, OD 909 [place], [place] [address] Rubi Johnson, OT [address] 746947 04/02/2025 9:30 AM CDT Therapy Visit [address] [phone] Randy Maradiaga, DO 909 [place], [place] 0[address] Delicia George, PT 150 [place], [place] 463757 04/06/2025 11:00 AM CDT Virtual Visit [facility] 150 [place] [phone] Bindu Bueno, OD 909 [place] [address] Rubi Johnson, OT [address] [address] 04/06/2025 12:30 PM CDT Therapy Visit [address] [phone] Randy Maradiaga, DO [address] [place] [address] Delicia George, PT 150 [place] [address] 04/16/2025 11:00 AM CDT Therapy Visit [address] [phone] Bindu Bueno, OD 909 [place] [address] Rubi Johnson, OT [address] [address] 04/23/2025 12:45 PM CDT Therapy Visit [address] [phone] Bindu Bueno, OD 909 [place] [address] Rubi Johnson, OT [facility] 150 [place] [address] 04/23/2025 2:00 PM CDT Therapy Visit [address] [phone] Randy Maradiaga, DO [address] [place] [address] Delicia George, PT 150 [facility] [place] [address] 04/30/2025 10:15 AM CDT Therapy Visit [address] [phone] Randy Maradiaga, DO [address] [place] [address] Delicia George, PT 150 [facility] [place] [address] 05/04/2025 11:00 AM CDT Virtual Visit [address] [phone] Bindu Bueno, OD 909 [place] [address] Rubi Johnson, OT [address] 459477 05/07/2025 10:15 AM CDT Therapy Visit [address] [phone] Randy Maradiaga, DO 909 [place] [address] Delicia George, PT 150 [place] [address] 05/14/2025 10:15 AM CDT Therapy Visit [address] [phone] Randy Maradiaga, DO 909 [place] [address] Delicia George, PT 150 [facility] [place] [address] 05/14/2025 11:00 AM CDT Therapy Visit [address] [phone] Bindu Bueno, OD 909 [place], [place] 7[address] Rubi Johnson, [address] [address] 06/01/2025 11:15 AM CDT Appointment [facility] Imaging [address] [place] [address] [place] [phone] Robin Zepeda MD [address] [place], [place] [id number] [address] 06/02/2025 2:20 PM CDT Virtual Visit [facility] Neurosurgery [facility] [address] 3rd [place] [phone] Robin Zepeda MD 909 [facility] [id number] [place], [place] 447135 07/01/2025 12:00 PM CDT Virtual Visit [facility] [address] 3rd [place] [phone] Santa Menon, PA-C [address] [place] [address] 08/03/2025 4:30 PM PREPRINT ANALYST Virtual Visit [facility] [address] [phone] Any Joiner MD 420 [facility] 276 [place], [place] [phone] documented as of this encounter Visit Diagnoses Not on filedocumented in this encounter Additional Health Concerns Infection Onset Date Last Indicated Resolved Time Rule Out COVID-19 09/13/2024 09/13/2024 09/13/2024 12:31 PM PREPRINT ANALYST Rule Out COVID-19 11/14/2024 11/14/2024 11/14/2024 8:25 PM PREPRINT ANALYST Assessment Noted Time PHQ-9 Depression Total Score: 16 024 3:27 PM CDT documented as of this encounter Care Teams Postal Superintendent Relationship Specialty Start Date End Date Winston Villatoro, [facility] [place] [address] [place] [address] PCP - Ophthalmology Ophthalmology 02/11/13 Denise Woodson APRN STONE AND PLATE PREPARER APPRENTICE [id number] [address] [address] PCP - General Family Practice 09/21/20 Denise Woodson APRN STONE AND PLATE PREPARER APPRENTICE [address] [place] [address] Assigned PCP 07/17/20 Usha Simon APRN STONE AND PLATE PREPARER APPRENTICE [address] [address] Nurse Practitioner Neurological Surgery 01/24/24 Dangelo Salinas MD [address] [place] [place] [address] Neurology 01/27/24 Anastasia Stearns, RN Lead Director Of Critical Care 02/06/24 12/17/24 Germaine Aleman, W Community Health Worker Primary Care - CC 02/18/2412/17/24 Robin Zepeda MD [address] [address] Assigned Neuroscience Provider 03/08/24 05/07/24 Lisa Zambrano MD 6405 [facility] [address] [place] [address] Assigned Heart and Vascular Provider 05/08/24 07/07/24 Raul Hoyos MD [address] 782085 Assigned Neuroscience Provider 05/08/24 07/07/24 Joya Lira RPH [address] [address] Pharmacist Pharmacist 05/25/24 Joya Lira [facility] [address] [place] [address] Assigned MTM Pharmacist 06/08/24 Fabi Coates MD 420 [facility] 75 [place] [address] Genetics, Clinical 06/18/24 Robin Zepeda MD [address] [place] [address] [id number] [place], [place] 593015 Assigned Neuroscience Provider 07/08/24 08/07/24 Danna Cardenas PA-C 6405 [place] [address] Assigned Heart and Vascular Provider 07/08/24 12/05/24 Felicita Desai, GEMA Lead Director Of Critical Care 07/14/24 07/28/24 Arthur Salas [facility] [address] [address] Assigned Behavioral Health Provider 08/08/24 Randy Maradiaga DO [address] [place] [address] 713385 Assigned Neuroscience Provider 08/08/24 Tete Wang MD 2450 [place], [place] [phone] Genetics, Clinical 10/30/24 Dahlia Joyce MD [address] [place] [address] 515445 Radiology Neuroradiology 11/17/24 Lisa Zambrano MD 6405 [facility] [address] [place] [address] 131105 Assigned Heart and Vascular Provider 12/06/24 Tete Wang MD [address] [place] [address] Assigned Pediatric Specialist Provider 01/06/25 Any Joiner MD [address] [place] [address] Assigned Pulmonology Provider 02/05/25 documented as of this encounter
--- OUTSIDE RECORDS SUMMARY | 2025-03-09 12:29 | XMS_ITS | Encounter Summary ---
Author Organization [place] Address [address] [place] [address] Care Team Providers Care Maintenance Service Dispatcher Name Role Phone Shauna Winston Se OD Unavailable [phone] Denise Woodson APRN FARMER DIVERSIFIED CROPS Unavailable [phone] Denise Woodson APRN FARMER DIVERSIFIED CROPS Primary Care Provider Usha Simon APRN FARMER DIVERSIFIED CROPS Unavailable + [phone] Dangelo Salinas MD Unavailable Usha Simon APRN FARMER DIVERSIFIED CROPS Unavailable Anastasia Stearns RN Unavailable Germaine Aleman [facility] Unavailable [phone] Robin Zepeda MD Unavailable Lisa Zambrano MD Unavailable Raul Hoyos MD Unavailable [phone] Joya Lira [facility] Unavailable [phone] Joya Lira Joleen Unavailable Fabi Coates MD Unavailable [phone] Robin Zepeda MD Unavailable [phone] Danna Cardenas PA-C Unavailable [phone] Felicita Desai RN Unavailable Unavailab Arthur Rios Unavailable +[phone] LaronRandy bucio Unavailable + Tete Wang MD Unavailable [phone] Dahlia Joyce MD Unavailable [phone] Lisa Zambrano MD Unavailable + [phone] Tete Wang MD Unavailable [phone] Any Joiner MD Unavailable [phone] Encounter Details Date Type Department Care Team (Late Contact Info) Description 01/27/2024 MyC Medical Advice [facility] Neurology Clinic [address] [phone] [facility] Social History Tobacco Use Types Packs/Day [...] file Legal Sex Female 4:05 AM PRODUCTION COOK Gender Identity Not on file Sexual Orientation [...] Description 03/16/2025 8:00 AM CDT Virtual Visit [facility] Rehabilitation Services [facility] 150 [place] [address] Bindu Bueno, OD 909 [place], [place] [address] Rubi Johnson, OT [facility] 150 [place], [place] [address]407 03/26/2025 12:45 PM CDT Therapy Visit [address] [phone] Bindu Bueno, OD 909 [place] [address] Rubi Johnson, OT [address] [address] 04/02/2025 9:30 AM CDT Therapy Visit [address] [phone] Randy Maradiaga, DO [address] [place] [address] 024905 Delicia George, PT 150 [place] [address] 04/06/2025 11:00 AM CDT Virtual Visit [address] [phone] Bindu Bueno, OD 909 [place], [place] 9[address] Rubi Johnson, OT [address] [address] 04/06/2025 12:30 PM CDT Therapy Visit [address] [phone] Randy Maradiaga, DO [address] [place] [address] 218095 Delicia George, PT 150 [place] [address] 04/16/2025 11:00 AM CDT Therapy Visit [address] [phone] Bindu Bueno, OD 909 [place] [address] Rubi Johnson, OT [address] [address] 04/23/2025 12:45 PM CDT Therapy Visit [address] [phone] Bindu Bueno, OD 909 [place] [address] Rubi Johnson, OT [address] [address] 04/23/2025 2:00 PM CDT Therapy Visit [address] [phone] Randy Maradiaga, DO 909 [place], [place] 7[address] Delicia George, PT 150 [facility] [place] [address] 04/30/2025 10:15 AM CDT Therapy Visit [address] [place] [address] Randy Maradiaga, DO [address] [place] [address] Delicia George, PT 150 [place] [address] 05/04/2025 11:00 AM CDT Virtual Visit [address] [phone] Bindu Bueno, OD [address] [place] [address]75[address] Rubi Johnson, [address] [address] 05/07/2025 10:15 AM CDT Therapy Visit [address] [phone] Randy Maradiaga, DO [address] [place] [address] Delicia George, PT 150 [facility] [place] [address] 05/14/2025 10:15 AM CDT Therapy Visit [address] [phone] Randy Maradiaga, DO [address] [place] [address] Delicia George, PT 150 [facility] [address] 05/14/2025 11:00 AM CDT Therapy Visit [facility] Services [address] [phone] Bindu Bueno, OD 909 [place] [address] Rubi Johnson, OT [address] [address] 06/01/2025 11:15 AM CDT Appointment [facility] Special[facility] Care Center Imaging [address] [place] [phone] Robin Zepeda MD [address] [place] [address] 122405 06/02/2025 2:20 PM CDT Virtual Visit [facility] Neurosurgery [address] [phone] Robin Zepeda MD [address] [place] [address] 059295 07/01/2025 12:00 PM CDT Virtual Visit [facility] Physical Medicine and Rehabilitation Clinic [address] [phone] Santa Menon, PA-C [address] [place] [address] 314125 08/03/2025 4:30 PM PRODUCTION COOK Virtual Visit [facility] [address] [phone] Any Joiner MD [address] [place] [address] documented as of this encounter Visit Diagnoses Not on filedocumented in this encounter Additional Health Concerns Infection Onset Date Last Indicated Resolved Time Rule Out COVID-19 09/13/2024 09/13/2024 09/13/2024 12:31 PM PRODUCTION COOK Rule Out COVID-19 11/14/2024 11/14/2024 11/14/2024 8:25 PM PRODUCTION COOK Assessment Noted Time PHQ-9 Depression Total Score: 0 06/23/20 21 4:11 PM CDT documented as of this encounter Care Teams Maintenance Service Dispatcher Relationship Specialty Start Date End Date Winston Villatoro OD [facility] [place] [address] [place] [address] PCP - Ophthalmology Ophthalmology 02/11/13 Denise Woodson APRN FARMER DIVERSIFIED CROPS [address] [facility] [place] [address] PCP - General Family Practice 09/21/20 Denise Woodson APRN FARMER DIVERSIFIED CROPS [address] [facility] [place] [address] Assigned PCP 07/17/20 Usha Simon APRN FARMER DIVERSIFIED CROPS [address] [place] [address] Nurse Practitioner Neurological Surgery 01/24/24 Dangelo Salinas MD [address] [facility] 200 [place], [place] [id number] Neurology 01/27/24 Usha Simon APRN FARMER DIVERSIFIED CROPS [address] [place] [address] Assigned Neuroscience Provider 02/06/24 03/07/24 Anastasia Stearns, RN Lead Information Management Specialist 02/06/24 12/17/24 Germaine Aleman, W Community Health Worker Primary Care - CC 02/18/2412/17/24 Robin Zepeda MD [address] [place] [address] [address] Assigned Neuroscience Provider 03/08/24 05/07/24 Lisa Zambrano MD 6405 [facility] [address] [place] [address] Assigned Heart and Vascular Provider 05/08/24 07/07/24 Raul Hoyos MD [address] [place] [address] [address] Assigned Neuroscience Provider 05/08/24 07/07/24 Joya Lira Joleen [address] [place] [address] Pharmacist Pharmacist 05/25/24 Joya Lira [facility] [address] [place] [address] Assigned MTM Pharmacist 06/08/24 Fabi Coates MD [address] [place] [address] 75 [place] [address] Genetics, Clinical 06/18/24 Robin Zepeda MD [address] [place] [address] [address] Assigned Neuroscience Provider 07/08/24 08/07/24 Danna Cardenas PA-C [address] [facility] [place] [address] Assigned Heart and Vascular Provider 07/08/24 12/05/24 Felicita Desai, RN Lead Information Management Specialist 07/14/24 07/28/24 Arthur Salas, [facility] [address] [place] [address] Assigned Behavioral Health Provider 08/08/24 Randy Maradiaga DO [address] [place] [address] Assigned Neuroscience Provider 08/08/24 Tete Wang MD [address] [place] [address] Genetics, Clinical 10/30/24 Dahlia Joyce MD [address] [place] [address] Radiology Neuroradiology 11/17/24 Lisa Zambrano MD 6405 [facility] [address] [place] [address] Assigned Heart and Vascular Provider 12/06/24 Tete Wang MD [address] [place] [address] Assigned Pediatric Specialist Provider 01/06/25 Any Joiner MD [address] [place] [address] Assigned Pulmonology Provider 02/05/25 documented as of this encounter
[2025-03-09 13:28] LABS: Appearance Urine Clear (Clear); Bilirubin Urine Negative (Negative); Blood Urine Trace-intact (Negative); Color Urine Yellow (Yellow); Glucose Urine Negative (Negative); Ketones Urine Negative (Negative); Leukocyte Esterase Urine Negative (Negative); Nitrite Urine Negative (Negative); Protein Urine Negative (Negative); Urobilinogen Urine 0.2 (0.2-1.0)
[2025-03-09 14:04] LABS: RBC Urine 0-2 (0-2); Squamous Epithelial Cell Urine Few (None-Few); WBC Urine 0-2 (0-5)
[2025-03-09 14:37] LABS: PCR FLU A Negative PCR FLU A (Negative); PCR FLU B Negative PCR FLU B (Negative); PCR RSV Negative PCR RSV (Negative); SARS PCR* Negative SARS-CoV-2 (Negative)
== END 2025-03-09 15:24 | disposition home or self-care (01) ==
PROVIDERS: Emergency Provider Student in an Organized Health Care Education/Training Program; PCP Nurse Practitioner
DX: R20.0 Anesthesia of skin (principal); R53.1 Weakness; R51.9 Headache, unspecified; M54.2 Cervicalgia; R42 Dizziness and giddiness
CPT/HCPCS: 36415; 70450; 70496; 70498; 70551; 80053; 81001; 83735; 84484; 85025; 87631; 93005; 96374; 99284; 99285; J1200; J1720; Q9967

== ENCOUNTER 2025-03-16 15:17 | Emergency (ER) | payer BC, SELFPAY ==
[2025-03-16 15:32] VITALS: BP 155/82; PULSE 71; RESP 16; TEMP 36.6; O2SAT 97; BMI 33.5
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
== END 2025-03-16 18:20 | disposition home or self-care (01) ==
PROVIDERS: Emergency Provider Family Medicine; PCP Family Medicine
DX: S13.9XXA Sprain of joints and ligaments of unspecified parts of neck, initial encounter (principal); V09.9XXA Pedestrian injured in unspecified transport accident, initial encounter; M62.838 Other muscle spasm
CPT/HCPCS: 72050; 99283; 99284

== ENCOUNTER 2025-06-16 15:39 | Outpatient (CLI) | payer BC, SELFPAY ==
[2025-06-16 19:44] LABS: Bacterial Vaginosis* Negative (Negative); Candida glab/krus NOT DETECTED (No Detected)
[2025-06-16 20:15] LABS: Chlamydia DNA Amplified* NOT DETECTED (No Detected); GC DNA Amplified* NOT DETECTED (No Detected)
[2025-06-20 15:48] LABS: HSV 1 Subtype by PCR Not Detected; HSV 2 Subtype by PCR Not Detected; Herpes Simplex Subtype Source Tissue
== END 2025-06-16 15:40 | disposition home or self-care (01) ==
PROVIDERS: PCP Family Medicine; Visit Provider Registered Nurse
DX: R10.20 Pelvic and perineal pain unspecified side (principal); N90.89 Other specified noninflammatory disorders of vulva and perineum
CPT/HCPCS: 81513; 87481; 87491; 87529; 87591; 87661

== ENCOUNTER 2025-07-07 17:15 | Emergency (ER) | payer BC, SELFPAY ==
--- OUTSIDE RECORDS SUMMARY | 2012-01-17 15:20 | XMS_ITS | Encounter Summary ---
Author Organization [facility] Address [address] [place] [address] Care Team Providers Care Mass Spectrometry Manager Name Role Phone Timmy Perez MD Unavailable Unavailable Encounter Details Date Type Department Care Team (Late Contact Info) Description 01/17/2012 3:20 PM CDT [facility] in [address] [phone] Luis Walsh [address] [place] [address] Interface, Store Director, Social History Tobacco Use Types Packs/Day Years Used Date Smoking Tobacco: Never Passive Smoke Exposure: Never Smokeless Tobacco: Never Alcohol Use Standard Drinks/Week Comments Not Currently 0 (1 standard drink = 0.6 oz pur e alcohol) minimal Comments No Sex and Gender Information Value Date Recorded Sex Assigned at Not on file Legal Sex 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 INDUSTRIAL ENGINEERING TECHNICIAN Gender Identity Not on file Sexual Orientation Not on file 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 Not 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 Not on file Not on file Not on file Not on file Not on file documented as of this encounter Plan of Treatment Upcoming Encounters Date Type Department Care Team (Late st Contact Info) Description 07/09/2025 11:00 AM CDT Virtual Visit [facility] [address] [phone] Myles, Bindu, OD [address] [place] [address] Rubi Johnson, OT [address] [address] 07/15/2025 2:30 PM CDT Office Visit [facility] [address] [place] [address] Chintan Denise, BARRERA DIRECTOR OF CATERING [address] [place] [address] 07/16/2025 11:00 AM CDT Virtual Visit [address] [phone] Bindu Bueno, OD [address] [place], [place] [address] Rubi Johnson, OT [address] [address] 07/23/2025 11:00 AM INDUSTRIAL ENGINEERING TECHNICIAN Virtual Visit [address] [phone] Myles Bindu, OD [address] [place] [address] Rubi Johnson, OT [address] [address] 08/03/2025 11:00 AM INDUSTRIAL ENGINEERING TECHNICIAN Virtual Visit [address] [phone] Bindu Bueno, OD [address] [place], [place] 487[address] Rubi Johnson, OT [address] [address] 08/03/2025 4:30 PM INDUSTRIAL ENGINEERING TECHNICIAN Virtual Visit [facility] [address] [phone] Any Joiner MD [address] [place] [address] 276 [place], [place] [address] 08/17/2025 12:45 PM INDUSTRIAL ENGINEERING TECHNICIAN Virtual Visit [facility] [address] [phone] Bindu Bueno, [address] [address] Rubi Johnson, OT [address] [address] 10/04/2025 10:15 AM INDUSTRIAL ENGINEERING TECHNICIAN Virtual Visit [facility] [address] [phone] Santa Menon, PA-C [address] [place] [phone] 01/19/2026 11:30 AM CDT Office Visit [facility] [address] [phone] Randy Maradiaga DO [address] [place] [address] documented as of this encounter Visit Diagnoses Not on filedocumented in this encounter Additional Health Concerns Infection Onset Date Last Indicated Resolved Time Rule Out COVID-19 09/13/2024 09/13/2024 09/13/2024 12:31 PM INDUSTRIAL ENGINEERING TECHNICIAN Rule Out COVID-19 11/14/2024 11/14/2024 11/14/2024 8:25 PM INDUSTRIAL ENGINEERING TECHNICIAN documented as of this encounter Care Teams Mass Spectrometry Manager Relationship Specialty Start Date End Date Timmy Perez MD PCP - Obstetrics/Gynecology 03/02/08 11/10/31 documented as of this encounter
--- OUTSIDE RECORDS SUMMARY | 2025-05-18 10:15 | XMS_ITS | Encounter Summary ---
Author Organization [facility] Address [address] [place] [address] Care Team Providers Care Engineer Geophysical [employer] Name Role Phone Winston Villatoro OD Unavailable [phone] Denise Woodson APRN CONTACT CENTRE SUPERVISOR Unavailable [phone] Usha Simon APRN CONTACT CENTRE SUPERVISOR Unavailable + [phone] Dangelo Salinas MD Unavailable Joya Lira RPH Unavailable [phone] Joya Lira RPH Unavailable [phone] Fabi Coates MD Unavailable [phone] SinArthur forbes MACHINE OPERATOR ASSISTANT Unavailable [phone] Randy Maradiaga DO Unavailable + Tete Wang MD Unavailable [phone] Dahlia Joyce MD Unavailable [phone] Lisa Zambrano MD Unavailable + [phone] Tete Wang MD Unavailable [phone] Any Joiner MD Unavailable [phone] Bindu Bueno OD Unavailable [phone] Aftab Finn MD Unavailable Randy Maradiaga DO Primary Care Prov ider Aftab Finn MD Unavailable Selena Mcfadden Unavailable [phone] Santa Menon PA-C Unavailable [phone] Reason for Visit * Rehab Therapy Occupational Therapy (Routine) - Authorized Specialty Diagnoses / Procedures Referred By Contlandon t Referred To Contact Occupational Therapy Diagnoses PER [facility] can do video visits rather than cancel, use Confluent (Oblix / [employer]) for video visits/ [id number] Cerebrovascular accident (CVA), unspecified mechanism (H) [I63.9] Randy Maradiaga, DO pf Procedures PT VESTIBULAR TREATMENT [address] [address] Phone: tel: Referral ID Status Reason Start Date Expiration Date V isits Requested Visits Authorized [id number] Authorized 02/14/2025 09/15/2025 365 365 Encounter Details Date Type Department Care Team (Late st Contact Info) Description 05/18/2025 10:15 AM CDT Therapy Visit [facility] [address] [facility] [place] [address] Denise Woodson APRN CONTACT CENTRE SUPERVISOR [address] [place] [address] Isabel Beaulieu, OTJah [facility] [address] [facility] [place] [address] Cerebrovascular accident (CVA), unspecified mechanism [...] re latives? 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 Not on file Not on file Not on file Not on file Not on file Not on file Not on file documented as of this encounter Progress Notes * Rubi Johnson, OT - 05/25/2025 4:30 PM CDTSummary: 90 day progress note 05/18/25 0500 Appointment Info Treating Provider Isabel Beaulieu OTR/L Total/Authorized Visits 7 - [place] OF [place] - cog limits Medical Diagnosis Cerebrovascular accident (CVA), unspecified mechanism (H) OT Tx Diagnosis decreased ADL/IADL [place] Precautions/Limitations falls, seizure history Progress Note/Certification Onset of Illness/Injury or Date of Surgery 02/01/25 Therapy Frequency 2x/week, decreasing frequency prn Predicted Duration 90 days Progress Note Due Date 05/13/25 Progress Note Completed Date 02/12/25 Goals OT Goals 1;2;3;4;5 OT Goal 1 Goal Identifier near vision/peripersonal visual scanning Goal Description Patient will report and/or demonstrate ability to tolerate 30 minutes (5 min. tolerance as of 02/12/25) on the computer (with a recommended 20- 30 sec.break every 20 minutes) with minimal to no eye strain for increased independence with various ADL/IADL tasks (communication with others, management of healthcare, etc.), using compensatory strategies as needed. Rationale In order to maximize safety and independence with performance of self- care activities;In order to safely and appropriately apply compensatory strategies with ADL/IADL performance Goal Progress Goal progressing. Patient able to tolerate near tasks for about 10 minutes, which is improved from 5 minutes. Target Date 05/13/25 OT Goal 2 Goal Identifier extrapersonal visual scanning Goal Description Patient to complete extrapersonal visual scanning tasks with improved efficiency and accuracy by demonstrating WNL on 3 of 4 modes of Dynavision and Scancourse with little to no increase in symptoms, using compensatory strategies prn, for increased independence with functional and c ommunity mobility. Rationale In order to maximize safety and independence with performance of self- care activities;In order to safely and appropriately apply compensatory strategies with ADL/IADL performance Goal Progress Goal progressing. patient demonstrating within normal limits on 2 of 3 modes of the DynaVision completed. Scanned course not yet completed. Target Date 05/13/25 OT Goal 3 Goal Identifier Manage eye strain strategies and post-concussion symptoms Goal Description Patient will identify and utilize 3 adaptive strategies and/or AE to decrease eye strain and post-CVA symptoms and report a score of 15 or less on 2 consecutive visits on the concussion symptom assessment score for increased independence during daily tasks. Rationale In order to maximize safety and independence with performance of self- care activities;In order to safely and appropriately apply compensatory strategies with ADL/IADL performance Goal Progress Goal progressing. Patient has been educated in numerous adaptive strategies to reduceeyestrain and has been compliant with using them at home: Technology adaptations, decrease visual clutter, filters for various light conditions. Unfortunately patient's symptoms continue to be high, see CSA flowsheet for details. Target Date 05/13/25 OT Goal 4 Goal Identifier fatigue management Goal Description Patient to verbalize and/or demonstrate 3 strategies for energy conservation/work simplification and fatigue management and for improved independence with ADL/IADLs at home and in the community, and increase FACIT - Fatigue score by 4 points for increased activity level. Rationale In order to maximize safety and independence with performance of self- care activities;In order to safely and appropriately apply compensatory strategies with ADL/IADL performance Goal Progress Goal progressing. Educated in SSP protocol to promote ANS self- regulation for engagement and IND with ADLs/IADLs, as well as community-based activities. Provided training and demo in Core program and issued for completion as HEP. Pt to follow up with provider for post-assessment and Balance program upon completion of Core program. Target Date 05/13/25 OT Goal 5 Goal Identifier memory skills Goal Description Patient to utilize and demonstrate at least 2 memory tools and strategies (land use planner, calendar, timers, association, pillbox) effectively and independently for increased ability to manage daily schedule, simple meal prep tasks and for increased ADL/IADL independence. Rationale In order to maximize safety and independence with performance of self- care activities;In order to safely and appropriately apply compensatory strategies with ADL/IADL performance Goal Progress Goal progressing. Educated in SSP protocol to promote ANS self- regulation for engagement and IND with ADLs/IADLs, including attention and cognitive activities. Target Date 05/13/25 Subjective Report Subjective Report Alcon reports that she doesn't have financial income and cannot afford to continue with services with the way the billing works for attending this clinic. Reports she is frustrated with feeling like she is declining over time rather than improving and becomes tearful when explaining that she didn't realize how much she was impacted by her brain injury initially after her stroke.Notes significant difficulty with sensory intolerance (lights, sounds, crowds) and looks forward tolearning more about SSP listening program. Objective Measures Objective Measures Objective Measure 1;Objective Measure 2;Objective Measure 3;Objective Measure 4;Objective Measure 5;Objective Measure 6;Objective Measure 7 Objective Measure 1 Objective Measure Concussion Symptom Assessment (CSA) - patient does not have a dx of concussion, however, patient experiencing many symptoms on CSA assessment tool and this was used to assist with capturing numerous symptoms and severity to assist with POC, goals Details 04/30/25: 13 symptoms and severity of 52 - *to note - in person visit today - got a ride/didn't drive) - see flowsheet for details Objective Measure 2 Objective Measure Convergence Insufficiency Symptom Survey (CISS) - Questionnaire completed to determine effects of visual deficits on reading and doing close work: Details 02/12/25: patient scored 52 (for adults, score of 21 or higher is suggestive of convergence insufficieny) - see flowsheet for details Objective Measure 3 Objective Measure The FACIT-F (Functional Assessment of Chronic Illness Therapy - Fatigue) is a 13-item questionnaire that assesses self-reported fatigue and its impact upon daily activities and function. The range of possible scores is 0-52, with 0 being the worst possible score and 52 the best. Average score in [place] general population is 40. Any effort to raise or maintain a score above 30 would help keep the person WNLs as defined by + or - one SD. If a person were to have a 3-4 point increaseor decrease in score, one can reasonably classify that person as having changed. Details 02/19/25: patient scored 7 Objective Measure 4 Objective Measure Developmental Eye Movement Test (DEM) Details 02/19/25: Vertical scanning (combined time of Test A and Test B): 2'39 and horizontal scanning (Test C): 4'15 (not counting ~60 sec. break after 4 lines of reading due to busy page and notable head pressure/head ache), no errors demonstrated on the test, DEM ratio time: 1.60 - significantly below functional limits (average is 1.0 - 1.24) Objective Measure 5 Objective Measure Dynavision Details 03/26/25: Mode A 60 sec.: 62 hits - WNLS, Mode B 60 sec.: 68 hits - WNL; Mode B divided attention 25 hits and 8/10 numbers - BNLs (all modes patient turning head for most of the lights; all modes fairly equal response time/accuracy, seated rest break between 2nd and 3rd trial); lights off over board only - on behind her overhead Objective Measure 6 Objective Measure MNRead Details 03/26/25: with refraction:with task light on chart (warm and medium brightness): Smallest print size read: .5M; Critical Print size (patient gradually slowed as print got smaller): .6M; WPM atcritical print size: 60wpm; at any distance: .4M at ~10. Preferred print size: 2.5M. Normal reading speed for normal reader: 150-200 wpm out loud. *Note: a 1 1/2 min. break was taken between 1M and .8M due to patient feeling nauseas and H/A Objective Measure 7 Objective Measure Brain Body Center Sensory Scales (BBCSS) Details As of 05/18/25 - Using the scale 1 = low impairment and 4 = high impairment, the pt scored the following on the BBCSS: auditory hypersensitivity = 3.8, auditory hyposensitivity to voices = 2.8,visual hypersensitivity = 4.0, tactile hypersensitivity = 3.2, affiliative touch aversion = 2.0, selective eating = 2.7, ingestive problems = 2.0, and digestive problems = 1.3. Treatment Interventions (OT) Interventions Self Care/Home Management;Therapeutic Activity Self Care/Home Management Self-Care/Home Mgmt/ADL, Compensatory, Meal Prep Minutes ([id number]) 45 Minutes Self Care 1 SSP, compensatory strategies Self Care 1 - Details Briefly educated pt in invisible illness of brain injuries and ongoing symptoms. Educated that symptom improvement can happen over long periods of time and encouraged continued slow, progressive exposures to difficult tasks/situations for habituation of pt's brain. Educated in option to transfer care to outpatient, [id number] clinic as needed for continuation of care (pt not sure at this time, would like a break from therapies in general just to start living life again). SSP initiated this date with education in autonomic nervous system flight or fight response and role of SSP in retraining nervous system response to daily situations, including sound and sensory sensitivities related to pt's concussion. Provided instructions/training in set up of brian on personal device as well as scheduling instructions and precautions/other parameters. Education provided as written below. Listen to 30 minutes one to two times daily, as tolerated, for 5-10 days consecutively. Precautions: Use over the ear headphones - issued ordering information for one option available to patient. Do not listen while eating, sleeping (aka don??t use it to fall asleep to), exercising or participating in other screen based activities (no social media scrolling etc). Sit and relax while listening. Potential Side Effects: 1. More vivid dreams- not true nightmares but others have described a heightened intensity to their dreams that make them un-settling at times. 2. Slight nausea at the beginning (first several minutes of listening) which should disappear after a couple of minutes. Considerations: Place phone in airplane mode or use settings for do not disturb. Reduce distractions and interruptions while listening. Also educated in optional activities while listening, such as light yoga/stretching, light brain activities (Word search, coloring), or sitting quietly, to name a few. Issued Brain Body Center Sensory Scales (BBCSS) pre-assessment - see results above. Facilitated trial of sound test to promote understanding. Provided access to Core listening programs and issued custom handout for carryover of HEP to home. Educated in follow up process for questions/concerns, as well as recommendation to complete post-assessment and contact OTR for access to Balance program once completed with 5 hours of Core program. Skilled Intervention Skilled education/training in SSP and compensatory strategies to promote engagement and IND with ADLs/IADLs Patient Response/Progress Alcon reports and demonstrates understanding of education/training today.She is hopeful that SSP will be helpful for sound sensitivity. Goals 4-5 progressing Education Learner/Method Patient;Listening;Reading;Demonstration Education Comments educated in and trialed filters in a variety of tint colors to help minimize eyediscomfort and maximize visual resolution due to photophobia and glare issues: educated in various styles of filters and other options to help with photophobia (some filters block overhead, various tint levels of filters, light/dark adaptation strategies, etc.), patient preferred dark pollack/green (#02) tint for indoors in bright sun (trialed today) wt fitover frame #36 NOIR, her medium pollack fitovers for cloudy days and FL 41 for indoors (from previous); educated in advantage/disadvantage of permanent tint in Rx glasses (FL 41 for example) and transitions; cell phone/technology adaptations: voice commands to text, find out weather, call, etc. - set up with patient's voice Plan Home program NEW: SSP Core, #02 pollack/green filter frame #36 when $$, voice commands/Tati on ph; CONT: podcasts (new for her) and TV - just 20-30 min/day 1- 2x/day for now; reduce visual clutter; filter: FL41 NOIR when gets $$, [employer] brian; audio books #1, e-reading #2, lg print with BUYSTANDux #3; Updates to plan of care NOW: no saccades, alternate pursuits and convergence task daily until improved symptoms; PREVIOUS: saccades with targets, monocular adduction, how to grade home program - mostly saccades activity (circling underlined letters - 4M to 2M, 4 sheets each) - doing 3 lines per time after pursuits (also has 4M scanning sheets Emanuel - too busy now) - USE READING GUIDE (ISSUED); visual scanning for pursuits, scanning during daily tasks: clockwise and counterclockwise 2 reps eachdirection, monocular first, then binocular 2 reps, 2x/day Plan for next session ^check hw; (PT doing progressive muscle relaxation - can do in OT as well andsee if incorporating at home); f/u SSP Core and initiate Balance prn - teach other vagus nerve stimulation strategies prn. *p.n. due - re-test CISS, CSA, DEM?, FACIT; *review and further ed. with Tati; do CSA a few times - sujata. when in person and when video again to compare (goal of 15 for 2 consec. tx's); done with fatigue goal?: cont. EC/WS prn - she knows well and might be ok not to address (did general only, not specifics) using spoon theory (she knows well - see above) - gave all EC h/o's to review together and tie in to spoon theory; in person: DV again (did well A,B 60 sec. - *do B divattn only and one w/center focus - doc. sx's!;); and SC 1st time as ablel consider BIVSS; *considertrial of binasal/temporal occlusion; *check hw (updated 04/06 to no saccades for now/dizzy) and add prn: convergence B eyes next with target (pursuits: lazy 8's, pie coyne, saccades: sorting and playingsolitaire, yardstick; accommodation: Vela Chart; convergence: *Wes string, bounce/catch ball); con t. cell ph (see 02/12 for start - now doing reverse,voice commands, DO: spoken content? - ipad too?)and computer/laptop adaptations; *manage eye strain strategies: lighting mostly left and tech above, MoCA as needed and more memory compensation (see ICT, did some with Isabel mid-2023); later: re-test CSA, CISS, DEM, BIVSS?, re-test MNRead; FACIT, oculomotor Total Session Time Timed Code Treatment Minutes 45 Total Treatment Time (sum of timed and untimed services) 45 PLAN Continue therapy per current plan of care. Beginning/End Dates of Progress Note Reporting Period: 02/12/25 to 05/18/2025 Referring Provider: Denise Woodson documented in this encounter Plan of Treatment Upcoming Encounters Date Type Department Care Team (Late st Contact Info) Description 07/09/2025 11:00 AM CDT [facility] [address] [place] [phone] Bindu Bueno, OD [address] [place], [place] [address] Rubi Johnson, OT [address] [id number] 07/15/2025 2:30 PM CDT Office Visit [facility] [address] [place] [phone] Denise Woodson APRN [facility] [address] [place], [place] [phone] 07/16/2025 11:00 AM CDT Virtual Visit [address] [phone] Bindu Bueno, OD [address] [place], [place] [address] Rubi Johnson, OT [address] [address] 07/23/2025 11:00 AM BEHAVIORAL SERVICES TECH Virtual Visit [address] [phone] Bindu Bueno, OD [address] [place], [place] [address] Rubi Johnson, OT [address] [address] 08/03/2025 11:00 AM BEHAVIORAL SERVICES TECH Virtual Visit [address] [place] [phone] Bindu Bueno, OD [address] [place] [address] Rubi Johnson, OT [address] [address] 08/03/2025 4:30 PM BEHAVIORAL SERVICES TECH Virtual Visit [facility] [address] [phone] Any Joiner MD [address] [place] [phone] 08/17/2025 12:45 PM BEHAVIORAL SERVICES TECH Virtual Visit [facility] [address] [phone] Bindu Bueno, OD [address] [place], [place] [phone] Rubi Johnson, OT [address] [address] 10/04/2025 10:15 AM BEHAVIORAL SERVICES TECH Virtual Visit [facility] [address] [phone] Santa Menon, PANilesC [address] [place] [phone] 01/19/2026 11:30 AM CDT Office Visit [facility] [address] [phone] Randy Maradiaga, [address] [phone] documented as of this encounter Visit Diagnoses Diagnosis Cerebrovascular accident (CVA), unspecified mechanism (H)- Primary documented in this encounter Additional Health Concerns Assessment Noted Time PHQ-9 Depression Total Score: 13 025 10:29 AM CDT documented as of this encounter Care Teams Engineer Geophysical Laboratory Relationship Specialty Start Date End Date Winston Villatoro OD [facility] [address] [place] [address] PCP - Ophthalmology Ophthalmology 02/11/13 Randy Maradiaga DO [address] [place] [address] PCP - General Neurology 04/08/25 05/25/25 Denise Woodson APRN CONTACT CENTRE SUPERVISOR [address] [place] [address] Assigned PCP 07/17/20 Usha Simon APRN CONTACT CENTRE SUPERVISOR [address] [facility] [id number] [place] [address] Nurse Practitioner Neurological Surgery 01/24/24 Dangelo Salinas MD [address] [place] [address] Neurology 01/27/24 Joya Lira RPH [address] [place] [address] Pharmacist Pharmacist 05/25/24 Joya Lira RPH [address] [place] [address] Assigned MTM Pharmacist 06/08/24 Fabi Coates MD [address] [facility] [address] [place], [place] [address] Genetics, Clinical 06/18/24 OlayinkaanselmoledyArthur MACHINE OPERATOR ASSISTANT [address] [place] [address] Assigned Behavioral Health Provider 08/08/24 Randy Maradiaga DO [address] [place], [place] [phone] Assigned Neuroscience Provider 08/08/24 Tete Wang MD [address] [place] [address] [phone] Genetics, Clinical 10/30/24 Dahlia Joyce MD [address] [place], [place] [phone] Radiology Neuroradiology 11/17/24 Lisa Zambrano MD [address] [facility] [address] [place] [address] Assigned Heart and Vascular Provider 12/06/24 Tete Wang MD [address] [place] [address] [phone] Assigned Pediatric Specialist Provider 01/06/25 Any Joiner MD [address] [facility] [address] [place] [address] Assigned Pulmonology Provider 02/05/25 Bindu Bueno OD [address] [place] [address] Assigned Surgical Provider 03/08/25 Aftab Finn MD [address] [address] Dermatology 03/17/25 Aftab Finn MD [address] [place] [address] Assigned Dermatology Provider 04/07/25 Selena Mcfadden [facility] Community Health Worker 05/25/2505/26 Santa [place]on PANilesC [address] [place] [phone] Physician Parts Interpreter Physical Medicine and Rehabilitation 02/25/25 documented as of this encounter
--- OUTSIDE RECORDS SUMMARY | 2025-05-25 11:00 | XMS_ITS | Encounter Summary ---
Author Organization [facility] Address [address] [place] [address] Care Team Providers Care Leach Tank Tender Name Role Phone Winston Villatoro OD Unavailable [phone] Denise Woodson APRN MANAGER PROVIDER RELATIONS Unavailable +[phone] Usha Simon APRN MANAGER PROVIDER RELATIONS Unavailable + [phone] Dangelo Salinas MD Unavailable Joya Lira RPH Unavailable [phone] Joya Lira RPH Unavailable +[phone] Fabi Coates MD Unavailable [phone] SinArthur forbes READY TO WEAR DEPARTMENT MANAGER Unavailable [phone] Randy Maradiaga DO Unavailable + Tete Wang MD Unavailable +[phone] Dahlia Joyce MD Unavailable +[phone] Lisa Zambrano MD Unavailable + [phone] Tete Wang MD Unavailable +[phone] Any Joiner MD Unavailable [phone] Bindu Bueno OD Unavailable [phone] Aftab Finn MD Unavailable Randy Maradiaga DO Primary Care Prov ider Aftab Finn MD Unavailable Selena Mcfadden Unavailable [phone] Santa Menon PA-C Unavailable [phone] Reason for Visit * Rehab Therapy Occupational Therapy (Routine) - Authorized Specialty Diagnoses / Procedures Referred By Contlandon t Referred To Contact Occupational Therapy Diagnoses PER [facility] can do video visits rather than cancel, use AGLOGIC for video visits/ [id number] Cerebrovascular accident (CVA), unspecified mechanism (H) [I63.9] Randy Maradiaga, DO pf Procedures PT VESTIBULAR TREATMENT [address] [address] Phone: tel: Referral ID Status Reason Start Date Expiration Date V isits Requested Visits Authorized [id number] Authorized 02/14/2025 09/15/2025 365 365 Encounter Details Date Type Department Care Team (Late st Contact Info) Description 05/25/2025 11:00 AM CDT Virtual Visit [facility] [address] [place] [phone] Bindu Bueno, OD [address] [place], [place] [address] Rubi Johnson, OT [facility] 150 [place], [place] [address] Cerebrovascular accident (CVA), unspecified mechanism (H) (Primary [...] Answer Date Recorded PHQ-2 Score 2 05/25/2025 [facility] [place] of Occupat ional Health - Occupational Stress [...] in an overnight penitentiary, or couch-surfing.) Yes 01/22/2025 Are you worried [...] on file Legal Sex Female 4:05 AM PHYSICIST CRYOGENICS Gender Identity Not on file Sexual Orientation [...] Description 07/09/2025 11:00 AM CDT Virtual Visit [address] [phone] Bindu Bueno, OD [address] [place] [address] Rubi Johnson, OT [address] [address] 07/15/2025 2:30 PM CDT Office Visit [facility] [address] [place] [address] Denise Woodson APRN [facility] [address] [place], [place] [phone] 07/16/2025 11:00 AM CDT Virtual Visit [address] [phone] Bindu Bueno, OD [address] [place] [address] Rubi Johnson, OT [facility] [address] [place] [address] 07/23/2025 11:00 AM PHYSICIST CRYOGENICS Virtual [facility] [address] [place] [address] Bindu Bueno, OD [address] [place] [address] Rubi Johnson, OT [facility] [address] [place] [address] 08/03/2025 11:00 AM PHYSICIST CRYOGENICS [facility] [address] [place] [address] Bindu Bueno, OD [address] [place] [address] Rubi Johnson, OT [facility] [address] [place] [address] 08/03/2025 4:30 PM PHYSICIST CRYOGENICS Virtual Visit [facility] [address] [phone] Any Joiner MD [address] [place] [address] 08/17/2025 12:45 PM PHYSICIST CRYOGENICS Virtual Visit [facility] [address] [place] [address] Bindu Bueno, OD [address] [place] [address] Rubi Johnson, OT [facility] 150 [place] [address] 10/04/2025 10:15 AM PHYSICIST CRYOGENICS Virtual Visit [facility] [address] [phone] Santa Menon, PA-C [address] [place] [address] 829345 01/19/2026 11:30 AM CDT Office Visit [facility] Neurology Clinic [address] [phone] Randy Maradiaga DO [address] [place] [address] 168635 documented as of this encounter Visit Diagnoses Diagnosis Cerebrovascular accident (CVA), unspecified mechanism (H)- Primary Activity of daily living alteration Debility, unspecified Alteration in instrumental activities of daily living (IADL) documented in this encounter Additional Health Concerns Assessment Noted Time PHQ-9 Depression Total Score: 12 025 12:15 PM CDT documented as of this encounter Care Teams Leach Tank Tender Relationship Specialty Start Date End Date Winston Villatoro, OD [facility] [address] [facility] [address] [place] [address] PCP - Ophthalmology Ophthalmology 02/11/13 Randy Maradiaga DO [address] [place] [address] [id number] PCP - General Neurology 04/08/25 05/25/25 Denise Woodson APRN MANAGER PROVIDER RELATIONS [address] [facility] [place] [address] Assigned PCP 07/17/20 Usha Simon APRN MANAGER PROVIDER RELATIONS 909 [facility] [id number] [place] [address] Nurse Practitioner Neurological Surgery 01/24/24 Dangelo Salinas MD [address] [place] [address] Neurology 01/27/24 Joya Lira [facility] [address] [place] [address] Pharmacist Pharmacist 05/25/24 Joya Lira [facility] [address] [place], [place] [phone] Assigned MTM Pharmacist 06/08/24 Fabi Coates MD 420 [facility] 75 [place], [place] 4[address] Genetics, Clinical 06/18/24 Arthur Salas, [facility] [address] [place] [address] Assigned Behavioral Health Provider 08/08/24 Randy Maradiaga DO 909 [place] [address] Assigned Neuroscience Provider 08/08/24 Tete Wang MD [address] [place] [address] Genetics, Clinical 10/30/24 Dahlia Joyce MD [address] [place] [address] Radiology Neuroradiology 11/17/24 Lisa Zambrano MD [address] [place] [address] [address] [place] [address] Assigned Heart and Vascular Provider 12/06/24 Tete Wang MD [address] [place] [address] Assigned Pediatric Specialist Provider 01/06/25 Any Joiner MD [address] [place] [address] 394145 Assigned Pulmonology Provider 02/05/25 Bindu Bueno OD [address] [place] [address] 912445 Assigned Surgical Provider 03/08/25 Aftab Finn MD [address] [address] Dermatology 03/17/25 Aftab Finn MD [address] [place] [address] 536945 Assigned Dermatology Provider 04/07/25 Selena Mcfadden, [facility] Community Health Worker 05/25/2505/26 Laurent-Santa Dejesus PA-C 909 [place] [address] Physician Volunteer Coordinator Physical Medicine and Rehabilitation 02/25/25 documented as of this encounter
--- OUTSIDE RECORDS SUMMARY | 2025-05-25 13:30 | XMS_ITS | Encounter Summary ---
Author Organization [facility] Address [address] [place] [address] Care Team Providers Care Label Stamper Name Role Phone Winston Villatoro OD Unavailable [phone] Denise Woodson APRN OFFICE ADMINISTRATOR Unavailable [phone] Usha Simon APRN OFFICE ADMINISTRATOR Unavailable + [phone] Dangelo Salinas MD Unavailable Joya Lira RPH Unavailable [phone] Joya Lira RPH Unavailable [phone] Fabi Coates MD Unavailable [phone] SinArthur forbes SUPERINTENDENT COLLIERY Unavailable [phone] Randy Maradiaga DO Unavailable + Tete Wang MD Unavailable [phone] Dahlia Joyce MD Unavailable [phone] Lisa Zambrano MD Unavailable + [phone] Tete Wang MD Unavailable [phone] Any Joiner MD Unavailable [phone] Bindu Bueno OD Unavailable [phone] Aftab Finn MD Unavailable Randy Maradiaga DO Primary Care Prov ider Aftab Finn MD Unavailable Selena Mcfadden Unavailable [phone] Santa Menon PA-C Unavailable [phone] Reason for Referral * Care Coordination (Routine: Next available opening) - Pending Review Specialty Diagnoses / Procedures Referred By Contlandon t Referred To Contact Diagnoses Cerebrovascular accident (CVA), unspecified mechanism (H) History of seizure History of stroke Denise Woodson APRN OFFICE ADMINISTRATOR [address] [place] [address] Phone: tel: fax: Referral ID Status Reason Start Date Expiration Date V isits Requested Visits Authorized [id number] Pending Review 05/25/2025 05/25/2026 1 1 Question Answer Reason for Referral: Other My Clinical Question Is: pt is having difficulty navigating her penitentiary disability coverage. needs assistance. Clinical Staff have discussed the Care Coordination Referral with the patient and/or caregiver: Yes Comments Reason for Visit * Reason Comments Stroke Follow up Encounter Details Date Type Department Care Team (Latest Contact Info) Description 05/25/2025 1:30 PM CDT Virtual Visit [facility] [address] [place] [address] Denise Woodson APRN OFFICE ADMINISTRATOR [address] [place], [place] [phone] Cerebrovascular accident (CVA), unspecified mechanism (H) (Primary Dx); History of seizure; History of stroke Social History Tobacco Use [...] re latives? 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 Assessment & Plan Cerebrovascular accident (CVA), unspecified mechanism (H) Continue with neurology and OT. Will have care coordination reach out to assist with disability requirements. - Primary Care - Care Coordination Referral; Future History of seizure See above. - Primary Care - Care Coordination Referral; Future History of stroke See above. - Primary Care - Care Coordination Referral; Future BMI Estimated body mass index is 32.64 kg/m?? as calculated from the following: Height as of 03/11/25: 1.74 m (5' 8.5). Weight as of 03/11/25: 98.8 kg (217 lb 13 oz). The longitudinal plan of care for the diagnosis(es)/condition(s) as documented were addressed during this visit. Due to the added complexity in care, I will continue to support Alcon in the subsequent management and with ongoing continuity of care. Subjective Alcon is a 49 year old, presenting for the following health issues: Stroke (Follow up) 05/25/2025 12:15 PM Additional Questions Roomed by WALLY Stroke History of Present Illness Reason for visit: Stroke followup She eats 2-3 servings of fruits and vegetables daily.She consumes 0 sweetened beverage(s) daily.Sheexercises with enough effort to increase her heart rate 10 to 19 minutes per day. She exercises with enough effort to increase her heart rate 3 or less days per week. She is missing 1 dose(s) of medications per week. She is not taking prescribed medications regularly due to remembering to take. Having difficulty with penitentiary disability. She was previously receiving short term disability. She is wondering if there is anybody through [facility] that can help navigate this. She continues with neurology and OT for treatment and is unable to work due to continued symptoms. Continues to have issues with intermittent neurodeficits. These include blurred vision, weakness, balance issues, headaches. Review of Systems Constitutional, HEENT, cardiovascular, pulmonary, [...] Description 07/09/2025 11:00 AM CDT Virtual Visit [facility] [address] [phone] Myles, Bindu, OD [address] [place], [place] [address] Rubi Johnson, OT [facility] [place] [address] [place] [address] 07/15/2025 2:30 PM CDT Office Visit [facility] [address] [place] [phone] Denise Woodson, ENVIRONMENTAL JOURNALIST OFFICE ADMINISTRATOR [address] [place] [address] 07/16/2025 11:00 AM CDT Virtual Visit [facility] 150 [place] [phone] BuenoMagaliBindu, OD [address] [place] [place] [address] [phone] Rubi Johnson[facility] [address] [place] [address] 07/23/2025 11:00 AM TAPER OPERATOR [facility] [address] [place] [phone] BuenoMagaliBindu, OD 909 [place], [place] 08[address] Rubi Johnson, OT [facility] 150 [facility] [place] [address] 08/03/2025 11:00 AM TAPER OPERATOR [facility] [address] [place] [phone] BuenoMagaliBindu, OD [address]09 [place], [place] [address] Rubi Johnson, OT [facility] 150 [place] [address] 08/03/2025 4:30 PM TAPER OPERATOR Virtual Visit [facility] [address] [phone] Any Joiner MD 420 [facility] 276 [place], [place] [address] 08/17/2025 12:45 PM TAPER OPERATOR Virtual Visit [facility] Rehabilitation Services [address] [phone] Bindu Bueno, [address] [address] Rubi Johnson, OT [address] [address] 10/04/2025 10:15 AM TAPER OPERATOR Virtual Visit [facility] Physical Medicine [facility] Rehabilitation Clinic [address] [phone] Santa Menon, PANilesC [address] [place] [address]65 01/19/2026 11:30 AM CDT Office Visit [facility] Neurology Clinic [address] [phone] Randy Maradiaga, [address] [place] [address]6545 Scheduled Referrals Name Type Priority Associated Diagnoses Orde r Schedule Primary Care - Care Coordination Referral Referral Routine: Next available opening Cerebrovascular accident (CVA), unspecified mechanism (H) History of seizure History of stroke Expected: 05/25/2025 (Approximate), Expires: 05/25/2026 documented as of this encounter Visit Diagnoses Diagnosis Cerebrovascular accident (CVA), unspecified mechanism (H)- Primary History of seizure History of stroke Transient ischemic attack (TIA), and cerebral infarction without residual deficits documented in this encounter Additional Health Concerns Assessment Noted Time PHQ-9 Depression Total Score: 12 025 12:15 PM CDT documented as of this encounter Care Teams Label Stamper Relationship Specialty Start Date End Date Winston Villatoro OD [facility] 701 [facility] [address] [place] [address] PCP - Ophthalmology Ophthalmology 02/11/13 Randy Maradiaga DO 909 [place] [address] PCP - General Neurology 04/08/25 05/25/25 Denise Woodson APRN OFFICE ADMINISTRATOR [address] [place] [address] Assigned PCP 07/17/20 Usha Simon APRN OFFICE ADMINISTRATOR [address] [facility] [place] [address] Nurse Practitioner Neurological Surgery 01/24/24 Dangelo Salinas MD [address] [place] [address] Neurology 01/27/24 Joya Lira RPH [address] [place] [address] Pharmacist Pharmacist 05/25/24 Joya Lira RPH [address] [place] [address] Assigned MTM Pharmacist 06/08/24 Fabi Coates MD 420 [facility] 75 [place], [place] [address] Genetics, Clinical 06/18/24 Arthur Salas SUPERINTENDENT COLLIERY [address] [address] Assigned Behavioral Health Provider 08/08/24 Randy Maradiaga DO 909 [place], [place] [phone] Assigned Neuroscience Provider 08/08/24 Tete Wang MD [address] [place] [address] 034904 Genetics, Clinical 10/30/24 Dahlia Joyce MD [address] [place], [place] [phone] Radiology Neuroradiology 11/17/24 Lisa Zambrano MD 6405 [facility] [place], [place] 561155 Assigned Heart and Vascular Provider 12/06/24 Tete Wang MD [address] [place] [address] 820814 Assigned Pediatric Specialist Provider 01/06/25 Any Joiner MD 420 [facility] 276 [place], [place] 373215 Assigned Pulmonology Provider 02/05/25 Bindu Bueno OD [address] [place], [place] 04[address] Assigned Surgical Provider 03/08/25 Aftab Finn MD [address] [address]86[address] Dermatology 03/17/25 Aftab Finn MD [address] [place] [address] 638215 Assigned Dermatology Provider 04/07/25 Selena Mcfadden [place] Community Health Worker 05/25/2505/26 Santa Menon, PA-C [address] [place] [address] 228795 Physician Nurse Liaison Physical Medicine and Rehabilitation 02/25/25 documented as of this encounter
--- OUTSIDE RECORDS SUMMARY | 2025-06-01 10:44 | XMS_ITS | Encounter Summary ---
Author Organization [place] Address [address] [place] [address] Care Team Providers Care Helpdesk Specialist Name Role Phone Winston Villatoro OD Unavailable [phone] Denise Woodson APRN INDUSTRIAL TRAINING SPECIALIST Unavailable [phone] Usha Simon APRN INDUSTRIAL TRAINING SPECIALIST Unavailable + [phone] Dangelo Salinas MD Unavailable Joya Lira RP Unavailable [phone] Joya Lira [facility] Unavailable Fabi Coates MD Unavailable [phone] Arthur Salas MUSIC DEPARTMENT CHAIR Unavailable [phone] Randy Maradiaga DO Unavailable + Tete Wang MD Unavailable [phone] Dahlia Joyce MD Unavailable [phone] Lisa Zambrano MD Unavailable + [phone] Tete Wang MD Unavailable [phone] Any Joiner MD Unavailable [phone] Bindu Bueno OD Unavailable [phone] Aftab Finn MD Unavailable Aftab Finn MD Unavailable Denise Woodson APRN INDUSTRIAL TRAINING SPECIALIST Primary Care Provider Red De Los Santos MECHANICAL UNIT REPAIRER Unavailable [phone] Santa Menon PA-C Unavailable [phone] Reason for Referral * Diagnostic Imaging MRI (Routine) - Closed Specialty Diagnoses / Procedures Referred By Nila shah Referred To Contact Radiology. Diagnoses Dural arteriovenous fistula Cerebrovascular accident (CVA), unspecified mechanism (H) Procedures MRA Brain ([place]) w/o Contrast Robin Zepeda MD [address] [place] [address] Phone: tel: fax: [facility] [address] [place] [address] Phone: tel: fax: Referral ID Status Reason Start Date Expiration Date Visits Re quested Visits Authorized [id number] Closed 06/01/2025 06/01/2026 1 1 Reason for Visit * Diagnostic Imaging MRI (Routine) - Closed Specialty Diagnoses / Procedures Referred By Nila shah Referred To Contact Radiology. Diagnoses Dural arteriovenous fistula Cerebrovascular accident (CVA), unspecified mechanism (H) Procedures MRA Brain ([place]) w/o Contrast Robin Zepeda MD [address] [place] [address] Phone: tel: fax: [facility] [address] [place] [address] Phone: tel: fax: Referral ID Status Reason Start Date Expiration Date Visits Re quested Visits Authorized [id number] Closed 06/01/2025 06/01/2026 1 1 Encounter Details Date Type Department Care Team (Latest Contact Info) Description 06/01/2025 10:44 AM CDT - 06/01/2025 11:59 PM CDT Hospital Encounter [facility] [address] [place] [address] Robin Zepeda MD [address] [facility] [id number] [address] Dural arteriovenous fistula; Cerebrovascular accident (CVA), unspecified mechanism (H) Discharge Disposition: Home or Self Care [...] re latives? 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 18 g 09/13/2024 BREO ELLIPTA 200-25 MCG/ACT inhalerIndications :Moderate persistent asthma without complication Inhale 1 puff into the lungs daily. 180 each 3 05/15/2025 cetirizine (ZYRTEC) 10 MG tablet Take 10 mg by mouth at bedtime. levETIRAcetam (KEPPRA) 750 MG tabletIndications: History of seizure Take 1/2 of 750 mg tab BID 120 tablet 2 01/22/2025 Lidocaine (LIDOCARE) 4 % PatchIndications:P ain of right upper extremity,Fibromya lgia Place 1 patch onto the skin daily as needed. To prevent lidocaine toxicity, patient should be patch free for 12 hrs daily. 05/19/2024 LORazepam (ATIVAN) 1 MG tabletIndications: History of seizure Take 1/2-1 tablet daily as needed for onset of dizziness. 10 tablet 08/04/2024 magnesium 200 MG TABS Take 2 tablets by mouth at bedtime. methylPREDNISolone (MEDROL DOSEPAK) 4 MG tablet therapy packIndications:Farzana han with status migrainosus, not intractable, unspecified migraine type Follow Package Directions 21 tablet 04/01/2025 methylPREDNISolone (MEDROL DOSEPAK) 4 MG tablet therapy packIndications:BP D (bronchopulmonary dysplasia) (H) Follow Package Directions 21 tablet 03/16/2025 psyllium (METAMUCIL) 28.3 % packet Take 1 packet by mouth daily traZODone (DESYREL) 100 MG tablet Take 100 mg by mouth at bedtime. 05/29/2024 citalopram (CELEXA) 10 MG tabletIndications: Generalized anxiety disorder Take 0.5 tablets (5 mg) by mouth daily. 90 tablet 01/25/2025 5 documented as of this encounter Plan of Treatment Upcoming Encounters Date Type Department Care Team (Late st Contact Info) Description 07/09/2025 11:00 AM CDT [facility] [address] [place] [address] Bindu Bueno, OD [address] [place], [place] [address] Rubi Johnson, OT [address] [id number] 07/15/2025 2:30 PM CDT Office Visit [facility] [address] [place] [phone] Denise Woodson APRN [facility] [address] [place], [place] [address] 07/16/2025 11:00 AM CDT Virtual Visit [address] [phone] Bindu Bueno, OD [address] [place], [place] [address] Rubi Johnson, OT [address] [address] 07/23/2025 11:00 AM KEY CARRIER Virtual Visit [address] [phone] Bindu Bueno, OD [address] [place], [place] [address] Rubi Johnson, OT [address] [address] 08/03/2025 11:00 AM KEY CARRIER Virtual Visit [address] [place] [address] Bindu Bueno, OD [address] [place], [place] [address] Rubi Johnson, OT [address] [address] 08/03/2025 4:30 PM KEY CARRIER Virtual Visit [facility] [address] [phone] Any Joiner MD [address] [place] [address] 685905 08/17/2025 12:45 PM KEY CARRIER Virtual Visit [facility] [address] [phone] Bindu Bueno, OD [address] [place], [place] [address] Rubi Johnson, OT [address] [address] 10/04/2025 10:15 AM KEY CARRIER Virtual Visit [facility] [address] [phone] [place] PANilesC [address] [place] [address]125 01/19/2026 11:30 AM CDT Office Visit [facility] [address] [phone] Randy Maradiaga, [address] [address] documented as of this encounter Goals Goal Patient Goal Type Associated Problems Recent Progress Patient-Stated? Author Create an action plan to increase financial stability Care Plan Patient expresses financial resource strain No Red De Los Santos LSW Note: Goal Statement: I will continue to take steps to further support my financial wellbeing over the next 3 month(s). Barriers: Complex conditions causing inability to work. 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 Patient expressed understanding of goal: yes Action steps to achieve this goal: I will continue to lean on my informal supports of my: family I will continue to work on the application(s) for: Social Security Disability and Residential Disability through Standard Insurance I will use the clinic as a resource and I understand I can contact my clinic with 24/7 after hours services available. I will continue to outreach to care coordination as needed for additional resources or supports. documented as of this encounter Procedures Procedure Name Priority Date/Time Associated Diagnosis Comments MRA BRAIN ([place]) W/O CONTRAST Routine 06/01/2025 11:23 AM CDT Dural arteriovenous fistula Cerebrovascular accident (CVA), unspecified mechanism (H) documented in this encounter Results * MRA Brain ([place]) w/o Contrast (06/01/2025 11:23 AM CDT) Anatomical Region Laterality Modality Head, SUBRAD MR NEURO, UMP MR NEURO, RAD MR Magnetic Resonance 06/01/2025 11:2 3 AM CDT Impressions 06/02/2025 2:01 PM CDT IMPRESSION: 1. No high-grade stenosis or occlusion of the major intracranial arteries. No intracranial aneurysms or high flow vascular malformations. 2. This exam is similar to the prior brain MRAs. The patient's reported left sigmoid dural arteriovenous fistula is not well-seen on this exam. Narrative 06/02/2025 2:01 PM CDT EXAM: MRA BRAIN ([place]) W/O CONTRAST LOCATION: [facility] DATE: 06/01/2025 INDICATION: Dural arteriovenous fistula, Cerebrovascular accident (CVA), unspecified mechanism (H) COMPARISON: Head CT dated 03/09/2025. Brain MRI 03/09/2025. Brain MRA 11/06/2024 and 01/20/2024. TECHNIQUE: 3D ibot-gc-varmax head MRA without intravenous contrast. FINDINGS: ANTERIOR CIRCULATION: No high-grade stenosis or occlusion. Standard [place] of [place] anatomy. POSTERIOR CIRCULATION: No stenosis/occlusion, aneurysm, or high flow vascular malformation. Dominant left and smaller right vertebral artery contribute to a normal basilar artery. No intracranial aneurysms. Procedure Note Donald Marquez MD - 06/02/2025 EXAM: MRA BRAIN ([place]) W/O CONTRAST LOCATION: [facility] DATE: 06/01/2025 INDICATION: Dural arteriovenous fistula, Cerebrovascular accident (CVA),unspecified mechanism (H) COMPARISON: Head CT dated 03/09/2025. Brain MRI 03/09/2025. Brain MRA11/06/2024 and 01/20/2024. TECHNIQUE: 3D slrw-gr-zqrxec head MRA without intravenous contrast. FINDINGS: ANTERIOR CIRCULATION: No high-grade stenosis or occlusion. Standard circleof Xavier anatomy. POSTERIOR CIRCULATION: No stenosis/occlusion, aneurysm, or high flowvascular malformation. Dominant left and smaller right vertebral arterycontribute to a normal basilar artery. No intracranial aneurysms. IMPRESSION: 1. No high-grade stenosis or occlusion of the major intracranial arteries.No intracranial aneurysms or high flow vascular malformations. 2. This exam is similar to the prior brain MRAs. The patient's reportedleft sigmoid dural arteriovenous fistula is not well-seen on this exam. us Robin Zepeda MD IMG MRI ORDERABLES Final Result documented in this encounter Visit Diagnoses Diagnosis Dural arteriovenous fistula Cerebral aneurysm, nonruptured Cerebrovascular accident (CVA), unspecified mechanism (H) documented in this encounter Additional Health Concerns Active Problems Noted Date Diagnosed Date Patient expresses financial resource strain 05/17 Assessment Noted Time PHQ-9 Depression Total Score: 12 025 12:15 PM CDT documented as of this encounter Care Teams Helpdesk Specialist Relationship Specialty Start Date End Date Winston Villatoro OD [facility] [place] [address] [place] [address] PCP - Ophthalmology Ophthalmology 02/11/13 Denise Woodson APRN INDUSTRIAL TRAINING SPECIALIST [address] [place] [address] PCP - General Family Practice 05/26/25 Denise Woodson APRN INDUSTRIAL TRAINING SPECIALIST [address] [place] [address] Assigned PCP 07/17/20 Usha Simon APRN INDUSTRIAL TRAINING SPECIALIST [address] [facility], [place] [address] Nurse Practitioner Neurological Surgery 01/24/24 Dangelo Salinas MD [address] [place] [address] Neurology 01/27/24 Joya Lira [facility] [address] [place] [address] Pharmacist Pharmacist 05/25/24 Joya Lira [facility] [address] [place] [address] Assigned MTM Pharmacist 06/08/24 Fabi Coates MD [address] [place] [address] 75 [place] [address] Genetics, Clinical 06/18/24 Arthur Salas LICSW [address] [place] [address] Assigned Behavioral Health Provider 08/08/24 Randy Maradiaga DO [address] [place] [address] Assigned Neuroscience Provider 08/08/24 Tete Wang MD [address] [place] [address] Genetics, Clinical 10/30/24 Dahlia Joyce MD [address] [place] [address] 164365 Radiology Neuroradiology 11/17/24 Lisa Zambrano MD [address] [place], [place] [address] [place] [address] Assigned Heart and Vascular Provider 12/06/24 Tete Wang MD [address] [place] [place] [address] 064174 Assigned Pediatric Specialist Provider 01/06/25 Any Joiner MD [address] [place] [address] 276 [place], [place] [address]35 Assigned Pulmonology Provider 02/05/25 Bindu Bueon, AMELIE [address] [place] [address] 775615 Assigned Surgical Provider 03/08/25 Aftab Finn MD [address] [place], [place] [address] Dermatology 03/17/25 Aftab Finn MD [address] [place], [place] 545645 Assigned Dermatology Provider 04/07/25 Red De Los Santos LSW Lead Talent Acquisition Assistant Primary Care - CC 05/26/25 [place] PANiles[facility] [address] [place] [address] 031765 Physician Zoogler Physical Medicine and Rehabilitation 02/25/25 documented as of this encounter
--- OUTSIDE RECORDS SUMMARY | 2025-06-02 09:00 | XMS_ITS | Encounter Summary ---
Author Organization [place] Address [address] [place] [address] Care Team Providers Care Cook Fry Name Role Phone Winston Villatoro OD Unavailable [phone] Denise Woodson APRN PROVIDER RELATIONS MANAGER Unavailable [phone] Usha Simon APRN PROVIDER RELATIONS MANAGER Unavailable + [phone] Dangelo Salinas MD Unavailable Joya Lira RP Unavailable [phone] Joya Lira [facility] Unavailable Fabi Coates MD Unavailable [phone] Arthur Salas SENIOR APPLICATIONS ANALYST Unavailable [phone] Randy Maradiaga DO Unavailable + Tete Wang MD Unavailable [phone] Dahlia Joyce MD Unavailable [phone] Lisa Zambrano MD Unavailable + [phone] Tete Wang MD Unavailable [phone] Any Joiner MD Unavailable [phone] Bindu Bueno OD Unavailable [phone] Aftab Finn MD Unavailable Aftab Finn MD Unavailable Denise Woodson APRN PROVIDER RELATIONS MANAGER Primary Care Provider Red De Los Santos ACCOUNT AUDITOR Unavailable [phone] Santa Menon PA-C Unavailable [phone] Alessandra Pereira RN Unavailable Reason for Visit * Rehab Therapy Occupational Therapy (Routine) - Authorized Specialty Diagnoses / Procedures Referred By Contac t Referred To Contact Occupational Therapy Diagnoses PER [facility] can do video visits rather than cancel, use [employer] for video visits/ [id number] Cerebrovascular accident (CVA), unspecified mechanism (H) [I63.9] Randy Maradiaga, DO pf Procedures PT VESTIBULAR TREATMENT [address] [address] Phone: tel: Referral ID Status Reason Start Date Expiration Date V isits Requested Visits Authorized [id number] Authorized 02/14/2025 09/15/2025 365 365 Encounter Details Date Type Department Care Team (Late st Contact Info) Description 06/02/2025 9:00 AM CDT Virtual Visit [address] [phone] Bindu Bueno, OD 909 [place], [place] [address] Rubi Johnson, OT [facility] 150 [place], [place] [address] Cerebrovascular accident (CVA), unspecified mechanism (H) (Primary Dx); Alteration in instrumental activities of daily living (IADL); Activity of daily living alteration Social History Tobacco Use Types Packs/Day Years [...] Answer Date Recorded PHQ-2 Score 2 05/25/2025 [facility] [...] in an overnight intermediate, or couch-surfing.) Yes 01/22/2025 Are you worried [...] on file 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 Gender Identity Not on file Sexual Orientation Not on file 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 on file Not on file Not on file Not on file Not on file Not on file Not on file documented as of this encounter Plan of Treatment Upcoming Encounters Date Type Department Care Team (Late st Contact Info) Description 07/09/2025 11:00 AM CDT Virtual Visit [address] [phone] Bindu Bueno, OD 909 [place] [address] Rubi Johnson, OT [address] [address] 07/15/2025 2:30 PM CDT Office Visit [facility] [address] [place] [address] Denise Woodson APRN [facility] [address] [place] [address] 07/16/2025 11:00 AM CDT [facility] [address] [place] [address] Bindu Bueno, OD [address] [place] [address] Rubi Johnson, OT [address] [address] 07/23/2025 11:00 AM HIGH SCHOOL BAND TEACHER Virtual Visit [address] [phone] Bindu Bueno, OD [address] [place] [address] Rubi Johnson, OT [address] [address] 08/03/2025 11:00 AM HIGH SCHOOL BAND TEACHER Virtual Visit [address] [phone] Bindu Bueno, OD [address] [place] [address] Rubi Johnson, OT [address] [address] 08/03/2025 4:30 PM HIGH SCHOOL BAND TEACHER Virtual Visit [facility] [address] [phone] Any Joiner MD [address] [place] [address] 08/17/2025 12:45 PM HIGH SCHOOL BAND TEACHER [facility] [address] [place] [phone] Myles Bindu, OD [address] [place] [address]26725 Rubi Johnson, OT [facility] 150 [place] [address] 10/04/2025 10:15 AM HIGH SCHOOL BAND TEACHER Virtual Visit [facility] [address] [phone] Santa Menon PA-C [address] [place] [address]7715 01/19/2026 11:30 AM CDT Office Visit [facility] [address] [phone] Randy Maradiaga, [address] [place] [address] [phone] documented as of this encounter Goals Goal Patient Goal Type Associated Problems Recent Progress Patient-Stated? Author Create an action plan to increase financial stability Care Plan Patient expresses financial resource strain No Red De Los Santos, OSEI Note: Goal Statement: I will continue to take steps to further support my financial wellbeing over the next 3 month(s). Barriers: Complex conditions causing inability to work. Strengths: Working with previous employer for Longterm Disability. Working with a Proposal Coordinator for Federal Disability. Patient expressed understanding of goal: yes Action steps to achieve this goal: I will continue to lean on my informal supports of my: family I will continue to work on the application(s) for: Social Security Disability and Longterm Disability through Standard Insurance I will use the clinic as a resource and I understand I can contact my clinic with 24/7 after hours services available. I will continue to outreach to care coordination as needed for additional resources or supports. documented as of this encounter Visit Diagnoses Diagnosis Cerebrovascular accident (CVA), unspecified mechanism (H)- Primary Alteration in instrumental activities of daily living (IADL) Activity of daily living alteration Debility, unspecified documented in this encounter Additional Health Concerns Active Problems Noted Date Diagnosed Date Patient expresses financial resource strain 05/17 Assessment Noted Time PHQ-9 Depression Total Score: 12 025 12:15 PM CDT documented as of this encounter Care Teams Cook Fry Relationship Specialty Start Date End Date Winston Villatoro OD [facility] [place] [address] [place] [address] PCP - Ophthalmology Ophthalmology 02/11/13 Denise Woodson APRN PROVIDER RELATIONS MANAGER [address] [place] [address] PCP - General Family Practice 05/26/25 Denise Woodson APRN PROVIDER RELATIONS MANAGER [address] [place] [address] Assigned PCP 07/17/20 Usha Simon APRN PROVIDER RELATIONS MANAGER [address] [facility]121[place], [place] [address] Nurse Practitioner Neurological Surgery 01/24/24 Dangelo Salinas MD [address] [place] [address] Neurology 01/27/24 Joya Lira RPH [address] [place], [place] [phone] Pharmacist Pharmacist 05/25/24 Joya Lira RPH [address] [place] [address] Assigned MTM Pharmacist 06/08/24 Fabi Coates MD [address] [facility] 75 [place] [address] Genetics, Clinical 06/18/24 Arthur Salas [facility] [address] [address] Assigned Behavioral Health Provider 08/08/24 Randy Maradiaga DO 909 [place], [place] [address] Assigned Neuroscience Provider 08/08/24 Tete Wang MD [address] [place] [address] 006264 Genetics, Clinical 10/30/24 Dahlia Joyce MD [address] [place], [place] 7[address] Radiology Neuroradiology 11/17/24 [place] [address] [place], [place] [phone] [place] [address] Assigned Heart and Vascular Provider 12/06/24 Tete Wang MD [address] [place] [address] 478714 Assigned Pediatric Specialist Provider 01/06/25 Any Joiner MD 420 [facility] 276 [place] [address] Assigned Pulmonology Provider 02/05/25 Myles AMELIE Ruano [address] [place] [address] 629625 Assigned Surgical Provider 03/08/25 Aftab Finn MD [address] [address] Dermatology 03/17/25 Aftab Finn MD [address] [place], [place] 9[address] Assigned Dermatology Provider 04/07/25 Red De Los Santos LSW Lead Cot Assembler Primary Care - CC 05/26/25 [place] PA-C [address] [place] [address] 218415 Physician Route Manager Physical Medicine and Rehabilitation 02/25/25 Alessandra Pereira, RN Specialty Cot Assembler Neurological Surgery 06/02/25 documented as of this encounter
--- OUTSIDE RECORDS SUMMARY | 2025-06-02 14:20 | XMS_ITS | Encounter Summary ---
Author Organization [facility] Address [address] [place] [address] Care Team Providers Care Latcher Name Role Phone Winston Villatroo OD Unavailable [phone] Denise Woodson APRN PUMP SERVICER HELPER Unavailable [phone] Usha Simon APRN PUMP SERVICER HELPER Unavailable + [phone] Dangelo Salinas MD Unavailable Joya Lira RP Unavailable [phone] Joya Lira [facility] Unavailable Fabi Coates MD Unavailable [phone] Arthur Salas CORPORATE COMPLIANCE MANAGER Unavailable [phone] Randy Maradiaga DO Unavailable + Tete Wang MD Unavailable [phone] Dahlia Joyce MD Unavailable [phone] Lisa Zambrano MD Unavailable + [phone] Tete Wang MD Unavailable [phone] Any Joiner MD Unavailable [phone] Bindu Bueno OD Unavailable [phone] Aftab Finn MD Unavailable Aftab Finn MD Unavailable Denise Woodson APRN PUMP SERVICER HELPER Primary Care Provider Red De Los Santos UPSCALE SECURITY OFFICER Unavailable [phone] Santa Menon PA-C Unavailable [phone] Wendy Pereira RN Unavailable Reason for Referral * Diagnostic Imaging MRI (Routine) - Pending Review Specialty Diagnoses / Procedures Referred By Contac t Referred To Contact Radiology. Diagnoses Dural arteriovenous fistula Cerebrovascular accident (CVA), unspecified mechanism (H) Procedures MR Brain w/o Contrast Robin Zepeda MD [address] [place] [address] Phone: tel: fax: Referral ID Status Reason Start Date Expiration Date V isits Requested Visits Authorized [id number] Pending Review 06/02/2025 06/02/2026 1 1 Reason for Visit * Reason Comments RECHECK Encounter Details Date Type Department Care Team (Latest Contact Info) Description 06/02/2025 2:20 PM CDT Virtual Visit [facility] [address] [address] Robin Zepeda MD [address] [place] [address] [id number] Dural arteriovenous fistula; Cerebrovascular accident (CVA), unspecified [...] Answer Date Recorded PHQ-2 Score 2 05/25/2025 [facility] [place] of Occupat ional Health - Occupational Stress [...] in an overnight snf, or couch-surfing.) Yes 01/22/2025 Are you worried [...] file Legal Sex Female 4:05 AM ELECTRIC FORK OPERATOR Gender Identity Not on file Sexual Orientation Not on file 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 Dr Zepeda supports Disability due to her Stroke symptoms. Please send Disability Paperwork through My Chart to Wendy Pereira RN to have completed. Neurosurgery RN 1St Grade Teacher Wendy Pereira RN BSN If you have any questions please contact the RN 1St Grade Teacher at [phone] Direct Line Neuro Surgery Scheduling/Call Center [phone] After business hours call the chief transfer and pumphouse operator at [phone] and have the Neuro- Interventional Fellow paged. documented in this encounter Progress Notes * Robin Zepeda MD - 06/02/2025 2:20 PM CDT Virtual Visit Details Type of service: Video Visit I had the pleasure to talk to Jose today during a neurosurgical phone visit. She gave consent for this visit. She is a 49-year-old female who presented to me for a second opinion regarding a [place] type I AV fistula. Previously during the workup which included a diagnostic cerebral angiogram she had a stroke. This has caused her significant cognitive difficulties. When I last saw her given the fact this was a [place] type I and her symptoms are minimal we decidednot to proceed with any treatment. At that time her major problems were related to her stroke that was caused by the angiogram. Over the last year she has continued to struggle with cognitive problems and attention problems. These are not surprising given her stroke. Based on her stroke I would predict that she would continueto have cognitive and attention deficits that could make it very difficult for her to work in the future. I would support disability as a relates to her symptoms. I reviewed her recent MR angiogram. I do not see anything concerning on this. The fistula is not well-visualized on the MR angiogram although the best imaging study would be an angiogram. I do not want to proceed with this given the previous stroke. At this point I would like to repeat a brain MRI without contrast in 1 year and have her see me at that time. documented in this encounter Nursing Notes * Airam Todd - 06/02/2025 2:20 PM CDT Current patient location: [address] [place] [address] Is the patient currently in the state of [place]? YES Visit mode: VIDEO If the visit is dropped, the patient can be reconnected by:VIDEO VISIT: Text to cell phone: Telephone Information: Will anyone else be joining the visit? NO (If patient encounters technical issues they should call [phone] :[phone]) Are changes needed to the allergy or medication list? Pt stated no changes to allergies and Pt stated no med changes Are refills needed on medications prescribed by this physician? NO Rooming Documentation: Not applicable Reason for visit: IVAN Todd VVF documented in this encounter Miscellaneous Notes * Addendum Note - Wendy Pereira RN - 06/02/2025 2:20 PM CDTAddended by: WENDY PEREIRA on: 06/02/2025 03:04 PM Modules accepted: Orders documented in this encounter Plan of Treatment Upcoming Encounters Date Type Department Care Team (Late st Contact Info) Description 07/09/2025 11:00 AM CDT Virtual Visit [address] [phone] Bindu Bueno, OD [address] [place], [place] 158145 Rubi Johnson, OT [address] [address] 07/15/2025 2:30 PM CDT Office Visit [facility] [address] [place] [address] Denise Woodson APRN [facility] [address] [place], [place] [id number] 07/16/2025 11:00 AM CDT Virtual Visit [address] [phone] Bindu Bueno, OD [address] [place], [place] [phone] Rubi Johnson, OT [facility] [address] [place] [address] 07/23/2025 11:00 AM ELECTRIC FORK OPERATOR [facility] 150 [place] [phone] Bueno, Bindu, OD [address] [place], [place] 739[address] Rubi Johnson, OT [facility] [address] [address] 08/03/2025 11:00 AM ELECTRIC FORK OPERATOR Virtual Visit [address] [phone] Bueno, Bindu, OD [address] [place], [place] 2098[address] Rubi Johnson, OT [facility] [address] [address] 08/03/2025 4:30 PM ELECTRIC FORK OPERATOR Virtual Visit [facility] [address] [address] Any Joiner MD [address] [place] [address] 08/17/2025 12:45 PM ELECTRIC FORK OPERATOR Virtual Visit [address] [phone] Bueno, Bindu, OD [address] [place], [place] 709285 Rubi Johnson, OT [address] [address] 10/04/2025 10:15 AM ELECTRIC FORK OPERATOR Virtual Visit [facility] [address] [address] Santa Menon, HAYDEN [address] [place] [id number] 01/19/2026 11:30 AM CDT Office Visit [facility] [address] [address] Randy Maradiaga DO [address] [place] [address] [phone] Scheduled Orders Name Type Priority Associated Diagnoses Orde r Schedule MR Brain w/o Contrast Imaging Routine Dural arteriovenous fistula Cerebrovascular accident (CVA), unspecified mechanism (H) Expected: 06/02/2026 (Approximate), Expires: 06/02/2026 documented as of this encounter Goals Goal [...] work. 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 Working with a [employer] for Federal Disability. Patient expressed understanding of goal: yes Action steps to achieve this goal: I will continue to lean on my informal supports of my: family I will continue to work on the application(s) for: Social Security Disability and Jail Disability through Standard Insurance I will use [...] documented as of this encounter Care Teams Latcher Relationship Specialty Start Date End Date Winston Villatoro OD [facility] [place] [address] [place] [address] PCP - Ophthalmology Ophthalmology 02/11/13 Denise Woodson APRN PUMP SERVICER HELPER [address] [place], [place] [id number] PCP - General Family Practice 05/26/25 Denise Woodson APRN PUMP SERVICER HELPER [address] [place], [place] [phone] Assigned PCP 07/17/20 Usha Simon APRN PUMP SERVICER HELPER 909 [facility]121[place], [place] [address] Nurse Practitioner Neurological Surgery 01/24/24 Dangelo Salinas MD [address] [place], [place] [phone] Neurology 01/27/24 Joya Lira RPH [address] [place] [address] Pharmacist Pharmacist 05/25/24 Joya Lira RPH [address] [place] [address] Assigned MTM Pharmacist 06/08/24 Fabi Coates MD 420 [facility] 75 [place] [address] Genetics, Clinical 06/18/24 Arthur Salas LICSW [address] [place] [address] Assigned Behavioral Health Provider 08/08/24 Randy Maradiaga DO 909 [place], [place] 348855 Assigned Neuroscience Provider 08/08/24 Tete Wang MD [address] [place] [address] Genetics, Clinical 10/30/24 Dahlia Joyce MD 909 [place], [place] [phone] Radiology Neuroradiology 11/17/24 Lisa Zambrano MD 6405 [facility] [address] [place] [address] Assigned Heart and Vascular Provider 12/06/24 Tete Wang MD [address] [place] [address] Assigned Pediatric Specialist Provider 01/06/25 Any Joiner MD 420 [facility] 276 [place] [address] Assigned Pulmonology Provider 02/05/25 Bindu Bueno OD [address] [place] [address] Assigned Surgical Provider 03/08/25 Aftab Finn MD [address] [address] Dermatology 03/17/25 Aftab Finn MD [address] [place] [address] Assigned Dermatology Provider 04/07/25 Red De Los Santos LSW Lead 1St Grade Teacher Primary Care - CC 05/26/25 Santa Menon, PA-C [address] [place] [address] Physician Kardex Clerk Physical Medicine and Rehabilitation 02/25/25 Wendy Pereira, RN Specialty 1St Grade Teacher Neurological Surgery 06/02/25 documented as of this encounter
--- OUTSIDE RECORDS SUMMARY | 2025-06-07 08:00 | XMS_ITS | Encounter Summary ---
Author Organization [place] Address [address] [place] [address] Care Team Providers Care Cranberry Grower Name Role Phone Winston Villatoro OD Unavailable [phone] Denise Woodson APRN LEVEL VIAL INSIDE GRINDER Unavailable [phone] Usha Simon APRN LEVEL VIAL INSIDE GRINDER Unavailable + [phone] Dnagelo Salinas MD Unavailable Joya Lira RP Unavailable [phone] Joya Lira [facility] Unavailable Fabi Coates MD Unavailable [phone] Arthur Salas RESEARCH ASSOCIATE Unavailable [phone] Randy Maradiaga DO Unavailable + Tete Wang MD Unavailable [phone] Dahlia Joyce MD Unavailable [phone] Lisa Zambrano MD Unavailable + [phone] Tete Wang MD Unavailable [phone] Any Jioner MD Unavailable [phone] Bindu Bueno OD Unavailable [phone] Aftab Finn MD Unavailable Aftab Finn MD Unavailable Denise Woodson APRN LEVEL VIAL INSIDE GRINDER Primary Care Provider Red De Los Santos PARTS COUNTER ASSOCIATE Unavailable [phone] Santa Menon PA-C Unavailable [phone] Alessandra Pereira RN Unavailable Reason for Visit * Rehab Therapy Occupational Therapy (Routine) - Authorized Specialty Diagnoses / Procedures Referred By Contac t Referred To Contact Occupational Therapy Diagnoses PER [facility] can do video visits rather than cancel, use TuneWiki for video visits/ [id number] Cerebrovascular accident (CVA), unspecified mechanism (H) [I63.9] Randy Maradiaga, DO pf Procedures PT VESTIBULAR TREATMENT [address] [address] Phone: tel: Referral ID Status Reason Start Date Expiration Date V isits Requested Visits Authorized [id number] Authorized 02/14/2025 09/15/2025 365 365 Encounter Details Date Type Department Care Team (Late st Contact Info) Description 06/07/2025 8:00 AM CDT Virtual Visit [facility] 150 [place] [address] Kaleb Luevano MD [facility] [address] [facility] 115 [place], [place] 815635 Isabel Beaulieu, OTR [facility] 150 [place] [address] Cerebrovascular accident (CVA), unspecified mechanism [...] Answer Date Recorded PHQ-2 Score 2 05/25/2025 [facility] [place] of Occupat ional Health - Occupational Stress [...] in an overnight halfway, or couch-surfing.) Yes 01/22/2025 Are you worried [...] Legal Sex Female 4:05 AM FRONT END UI DEVELOPER Gender Identity Not on file Sexual Orientation Not on file 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 Location): Home Distant Location (provider location): On-site Platform used for Video Visit: [facility] documented in this encounter Plan of Treatment Upcoming Encounters Date Type Department Care Team (Late st Contact Info) Description 07/09/2025 11:00 AM CDT Virtual Visit [address] [phone] Bindu Bueno, OD [address] [place], [place] [address] Rubi Johnson, OT VALARIE [address] [address] 07/15/2025 2:30 PM CDT Office Visit [facility] [address] [place] [phone] Chintan DeniseBARRERA LEVEL VIAL INSIDE GRINDER [address] [place] [address] 07/16/2025 11:00 AM CDT Virtual Visit [address] [phone] Bindu Bueno, OD 909 [place], [place] 2628[address] Rubi Johnson, OT [address] [address] 07/23/2025 11:00 AM FRONT END UI DEVELOPER Virtual Visit [address] [phone] Bindu Bueno, OD [address] [place], [place] 5837[address] Rubi Johnson, OT [address] [address] 08/03/2025 11:00 AM FRONT END UI DEVELOPER Virtual Visit [address] [phone] Bindu Bueno, OD [address] [place], [place] 707[address] Rubi Johnson, OT [address] [address] 08/03/2025 4:30 PM FRONT END UI DEVELOPER Virtual Visit [facility] [address] [phone] Any Joiner MD 420 [facility] 276 [place] [address] 08/17/2025 12:45 PM FRONT END UI DEVELOPER Virtual Visit [facility] Rehabilitation Services [facility] 150 [place] [phone] Myles Bindu, OD 909 [place], [place] 978[address] Rubi Johnson, OT [facility] 150 [place] [address] 10/04/2025 10:15 AM FRONT END UI DEVELOPER Virtual Visit [facility] [address] [phone] Santa Menon, PA-C [address] [place] [address]12985 01/19/2026 11:30 AM CDT Office Visit [facility] Neurology Clinic [address] [address] Randy Maradiaga, [address] [place] [address] 646135 documented as of this encounter Goals Goal Patient Goal Type Associated Problems Recent Progress Patient-Stated? Author Create an action plan to increase financial stability Care Plan Patient expresses financial resource strain Red Kennedy LSW Note: Goal Statement: I will continue to take steps to further support my financial wellbeing over the next 3 month(s). Barriers: Complex conditions causing inability to work. Strengths: Working with previous employer for Usp Disability. Working with a [employer] for Federal Disability. Patient expressed understanding of goal: yes Action steps to achieve this goal: I will continue to lean on my informal supports of my: family I will continue to work on the application(s) for: Social Security Disability and Usp Disability through Standard Insurance I will use [...] as of this encounter Care Teams Cranberry Grower Relationship Specialty Start Date End Date Winston Villatoro OD [facility] [address] [facility] [address] [place] [address] PCP - Ophthalmology Ophthalmology 02/11/13 Denise Woodson APRN LEVEL VIAL INSIDE GRINDER [address] [place] [address] PCP - General Family Practice 05/26/25 Denise Woodson APRN LEVEL VIAL INSIDE GRINDER [address] [place] [address] Assigned PCP 07/17/20 Usha Simon APRN LEVEL VIAL INSIDE GRINDER 909 [facility] [id number] [place] [address] Nurse Practitioner Neurological Surgery 01/24/24 Dangelo Salinas MD [address] [place] [address] Neurology 01/27/24 Joya Lira [facility] [address] [place] [address] Pharmacist Pharmacist 05/25/24 Joya Lira [facility] [address] [place] [address] Assigned MTM Pharmacist 06/08/24 Fabi Coates MD [address] [place] [address] 75 [place] [address] Genetics, Clinical 06/18/24 Arthur Salas [facility] [address] [address] Assigned Behavioral Health Provider 08/08/24 Randy Maradiaga DO [address] [place] [address] Assigned Neuroscience Provider 08/08/24 Tete Wang MD [address] [place] [address] Genetics, Clinical 10/30/24 Dahlia Joyce MD [address] [place] [address] Radiology Neuroradiology 11/17/24 Lisa Zambrano MD 6405 [facility] [address] [place] [address] Assigned Heart and Vascular Provider 12/06/24 Tete Wang MD [address] [place] [address] Assigned Pediatric Specialist Provider 01/06/25 Any Joiner MD [address] [place] [address] 276 [place] [address] Assigned Pulmonology Provider 02/05/25 Bindu Bueno OD [address] [place] [address] Assigned Surgical Provider 03/08/25 Aftab Finn MD [address] [address] Dermatology 03/17/25 Aftab Finn MD [address] [place] [address] Assigned Dermatology Provider 04/07/25 Red De Los Santos LSW Lead Service Electrician Primary Care - CC 05/26/25 Santa [place], PA-C [address] [place] [address] Physician Hypo Splasher Physical Medicine and Rehabilitation 02/25/25 Alessandra Pereira, RN Specialty Service Electrician Neurological Surgery 06/02/25 documented as of this encounter
--- OUTSIDE RECORDS SUMMARY | 2025-06-22 12:45 | XMS_ITS | Encounter Summary ---
Author Organization [facility] Address [address] [place] [address] Care Team Providers Care Tax Compliance Manager Name Role Phone Winston Villatoro OD Unavailable [phone] Denise Woodson APRN UNDERGROUND BOLTING MACHINE OPERATOR Unavailable [phone] Usha Simon APRN UNDERGROUND BOLTING MACHINE OPERATOR Unavailable + [phone] Dangelo Salinas MD Unavailable Joya Lira RP Unavailable [phone] Joya Lira [facility] Unavailable [phone] Fabi Coates MD Unavailable [phone] Arthur Salas SIDEROGRAPHIST Unavailable +[phone] Randy Maradiaga DO Unavailable + Tete Wang MD Unavailable [phone] Dahlia Joyce MD Unavailable +[phone] Lisa Zambrano MD Unavailable + [phone] Tete Wang MD Unavailable +[phone] Any Joiner MD Unavailable [phone] Bindu Bueno OD Unavailable +[phone] Aftab Finn MD Unavailable Aftab Finn MD Unavailable Denise Woodson APRN UNDERGROUND BOLTING MACHINE OPERATOR Primary Care Provider Red De Los Santos CORPORATE GENERAL MANAGER Unavailable [phone] Santa Menon PA-C Unavailable [phone] Alessandra Pereira RN Unavailable Reason for Visit * Rehab Therapy Occupational Therapy (Routine) - Authorized Specialty Diagnoses / Procedures Referred By Contac t Referred To Contact Occupational Therapy Diagnoses PER [facility] can do video visits rather than cancel, use [employer] for video visits/ [id number] Cerebrovascular accident (CVA), unspecified mechanism (H) [I63.9] Randy Maradiaga, DO pf Procedures PT VESTIBULAR TREATMENT [address] [address] Phone: tel: Referral ID Status Reason Start Date Expiration Date V isits Requested Visits Authorized [id number] Authorized 02/14/2025 09/15/2025 365 365 Encounter Details Date Type Department Care Team (Late st Contact Info) Description 06/22/2025 12:45 PM CDT Virtual Visit [address] [phone] Bindu Bueno, OD [address] [place], [place] [phone] Rubi Johnson, OT [facility] 150 [place], [place] [phone] Cerebrovascular accident (CVA), unspecified mechanism (H) (Primary [...] re latives? 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 Taoism Services Not on file 01/22 Active Member [...] Answer Date Recorded PHQ-2 Score 2 05/25/2025 [facility] [...] on file Legal Sex Female 4:05 AM SORTER/ASSAY TECH Gender Identity Not on file Sexual [...] Description 07/09/2025 11:00 AM CDT Virtual Visit [address] [phone] Bindu Bueno, OD [address]09 [place] [address] Rubi Johnson, OT [address] [address] 07/15/2025 2:30 PM CDT Office Visit [facility] [address] [place] [address] Denise Woodson APRN [facility] [address] [place] [address] 07/16/2025 11:00 AM CDT [facility] 150 [place] [address] Bindu Bueno, OD [address]09 [place] [address] Rubi Johnson, OT [address] [address] 07/23/2025 11:00 AM SORTER/ASSAY TECH Virtual Visit [address] [phone] Bindu Bueno, OD [address]09 [place] [address] Rubi Johnson, OT [address] [address] 08/03/2025 11:00 AM SORTER/ASSAY TECH Virtual Visit [address] [phone] Bindu Bueno, OD [address]09 [place] [address] Rubi Johnson, OT [address] [address] 08/03/2025 4:30 PM SORTER/ASSAY TECH Virtual Visit [facility] [address] [phone] Any Joiner MD [address] [place] [address] 08/17/2025 12:45 PM SORTER/ASSAY TECH [facility] [address] [place] [address] Myles Bindu, OD [address] [place] [address] 930405 Rubi Johnson, OT [facility] 150 [place] [address] 10/04/2025 10:15 AM SORTER/ASSAY TECH Virtual Visit [facility] [address] [phone] Santa Menon PA-C [address] [place] [address] 006125 01/19/2026 11:30 AM CDT Office Visit [facility] Neurology Clinic [address] [phone] Randy Maradiaga, [address] [place] [address] [phone] documented as of this encounter Goals Goal [...] work. Strengths: Working with previous employer for [employer]. 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 Patient expressed understanding of goal: yes Action steps to achieve this goal: I will continue to lean on my informal supports of my: family I will continue to work on the application(s) for: Social Security Disability and Base [employer] Disability through Standard Insurance I will use [...] as of this encounter Care Teams Tax Compliance Manager Relationship Specialty Start Date End Date Winston Villatoro OD [facility] [place] [address] [place] [address] PCP - Ophthalmology Ophthalmology 02/11/13 Denise Woodson APRN UNDERGROUND BOLTING MACHINE OPERATOR [address] [place] [address] PCP - General Family Practice 05/26/25 Denise Woodson APRN UNDERGROUND BOLTING MACHINE OPERATOR [address] [place] [address] Assigned PCP 07/17/20 Usha Simon APRN UNDERGROUND BOLTING MACHINE OPERATOR 9 [facility] [address] Nurse Practitioner Neurological Surgery 01/24/24 Dangelo Salinas MD [address] [place] [address] Neurology 01/27/24 Joya Lira RPH [address] [place], [place] [phone] Pharmacist Pharmacist 05/25/24 Joya Lira RPH [address] [place] [address] Assigned MTM Pharmacist 06/08/24 Fabi Coates MD 420 [facility] 75 [place] [address] Genetics, Clinical 06/18/24 Arthur Salas [facility] [address] [address] Assigned Behavioral Health Provider 08/08/24 Randy Maradiaga DO 909 [place], [place] 657765 Assigned Neuroscience Provider 08/08/24 Tete Wang MD [address] [place] [address] 613104 Genetics, Clinical 10/30/24 Dahlia Joyce MD 909 [place], [place] 169235 Radiology Neuroradiology 11/17/24 [place] [address] [place], [place] [address] [place] [address] Assigned Heart and Vascular Provider 12/06/24 Tete Wang MD [address] [place] [address] 365874 Assigned Pediatric Specialist Provider 01/06/25 Any Joiner MD 420 [facility] 276 [place] [address] Assigned Pulmonology Provider 02/05/25 Myles AMELIE Ruano [address] [place] [address] 997935 Assigned Surgical Provider 03/08/25 Aftab Finn MD [address] 441[address] Dermatology 03/17/25 Aftab Finn MD 500 [place], [place] 741275 Assigned Dermatology Provider 04/07/25 Red De Los Santos LSW Lead Director Nursing Service Primary Care - CC 05/26/25 Santa Menon PA-C [address] [place] [address] 409975 Physician Registrar [employer] Physical Medicine and Rehabilitation 02/25/25 Alessandra Pereira, RN Specialty Director Nursing Service Neurological Surgery 06/02/25 documented as of this encounter
--- OUTSIDE RECORDS SUMMARY | 2025-06-29 12:45 | XMS_ITS | Encounter Summary ---
Author Organization [facility] Address [address] [place] [address] Care Team Providers Care Job Compositor Name Role Phone Winston Villatoro OD Unavailable [phone] Denise Woodson APRN CASINO CAGE CASHIER Unavailable [phone] Usha Simon APRN CASINO CAGE CASHIER Unavailable + [phone] Dangelo Salinas MD Unavailable Joya Lira RP Unavailable [phone] L[address] [facility] Unavailable Fabi Coates MD Unavailable [phone] Arthur Salas STRATEGIC ALLIANCES MANAGER Unavailable [phone] Randy Maradiaga DO Unavailable + Tete Wang MD Unavailable [phone] Dahlia Joyce MD Unavailable [phone] Lisa Zambrano MD Unavailable + [phone] Tete Wang MD Unavailable +[phone] Any Joiner MD Unavailable [phone] Bindu Bueno OD Unavailable [phone] Aftab Finn MD Unavailable Aftab Finn MD Unavailable Denise Woodson APRN CASINO CAGE CASHIER Primary Care Provider Red De Los Santos TRAFFIC SIGN SUPERVISOR Unavailable [phone] Santa Menon PA-C Unavailable [phone] Alessandra Pereira RN Unavailable Reason for Visit * Rehab Therapy Occupational Therapy (Routine) - Authorized Specialty Diagnoses / Procedures Referred By Contac t Referred To Contact Occupational Therapy Diagnoses PER [facility] can do video visits rather than cancel, use [employer] for video visits/ [id number] Cerebrovascular accident (CVA), unspecified mechanism (H) [I63.9] Randy Maradaiga, DO pf Procedures PT VESTIBULAR TREATMENT [address] [address] Phone: tel: Referral ID Status Reason Start Date Expiration Date V isits Requested Visits Authorized [id number] Authorized 02/14/2025 09/15/2025 365 365 Encounter Details Date Type Department Care Team (Late st Contact Info) Description 06/29/2025 12:45 PM CDT Virtual Visit [address] [phone] Bindu Bueno, OD 909 [place], [place] 4[address] Rubi Johnson, OT [facility] 150 [place], [place] [phone] Cerebrovascular accident (CVA), unspecified mechanism (H) (Primary [...] re latives? 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 Gender Identity Not on file [...] Description 07/09/2025 11:00 AM CDT Virtual Visit [address] [phone] Bindu Bueno, OD 909 [place] [address] Rubi Johnson, OT [address] [address] 07/15/2025 2:30 PM CDT Office Visit [facility] [address] [place] [address] Denise Woodson APRN [facility] [address] [place] [address] 07/16/2025 11:00 AM CDT [facility] 150 [place] [address] Bindu Bueno, OD 909 [place] [address] Rubi Johnson, OT [address] [address] 07/23/2025 11:00 AM CORE MACHINE TENDER Virtual Visit [address] [phone] Bindu Bueno, OD [address]09 [place] [address] Rubi Johnson, OT [address] [address] 08/03/2025 11:00 AM CORE MACHINE TENDER Virtual Visit [address] [phone] Bindu Bueno, OD [address] [place] [address] Rubi Johnson, OT [address] [address] 08/03/2025 4:30 PM CORE MACHINE TENDER Virtual Visit [facility] [address] [phone] Any Joiner MD [address] [place] [address] 08/17/2025 12:45 PM CORE MACHINE TENDER [facility] 150 [place] [address] Myles Bindu, OD [address] [place] [address] Rubi Johnson, OT [facility] 150 [place] [address] 10/04/2025 10:15 AM CORE MACHINE TENDER Virtual Visit [facility] Physical Medicine [facility] Rehabilitation Clinic [address] [phone] Santa Menon PA-C [address] [place] [address] 519825 01/19/2026 11:30 AM CDT Office Visit [facility] Neurology Clinic [address] [phone] Randy Maradiaga, [address] [place] [address] [phone] documented as of this encounter Goals Goal [...] employer for [employer] Disability. 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 I will use [...] documented as of this encounter Care Teams Job Compositor Relationship Specialty Start Date End Date Winston Villatoro OD [facility] [place] [address] [place] [address] PCP - Ophthalmology Ophthalmology 02/11/13 Denise Woodson APRN CASINO CAGE CASHIER [address] [place] [address] PCP - General Family Practice 05/26/25 Denise Woodson APRN CASINO CAGE CASHIER [address] [place] [address] Assigned PCP 07/17/20 Usha Simon APRN CASINO CAGE CASHIER 9 [facility]121[place], [place] [address] Nurse Practitioner Neurological Surgery 01/24/24 Dangelo Salinas MD [address] [place] [address] Neurology 01/27/24 Joya Lira RPH [address] [place], [place] [phone] Pharmacist Pharmacist 05/25/24 Joya Lira RPH [address] [place] [address] Assigned MTM Pharmacist 06/08/24 Fabi Coates MD 420 [facility] 75 [place] [address] Genetics, Clinical 06/18/24 Arthur Salas [facility] [address] [address] Assigned Behavioral Health Provider 08/08/24 Randy Maradiaga DO 909 [place], [place] 348425 Assigned Neuroscience Provider 08/08/24 Tete Wang MD [address] [place] [address] 336304 Genetics, Clinical 10/30/24 Dahlia Joyce MD 909 [place], [place] 332565 Radiology Neuroradiology 11/17/24 [place] [address] [place], [place] [phone] [place] [address] Assigned Heart and Vascular Provider 12/06/24 Tete Wang MD [address] [place] [address] 136254 Assigned Pediatric Specialist Provider 01/06/25 Any Joiner MD 420 [facility] 276 [place] [address] Assigned Pulmonology Provider 02/05/25 Myles AMELIE Ruano [address] [place] [address] [phone] Assigned Surgical Provider 03/08/25 Aftab Finn MD [address] [address] Dermatology 03/17/25 Aftab Finn MD 500 [place], [place] 915035 Assigned Dermatology Provider 04/07/25 Red De Los Santos LSW Lead Cash Processor Primary Care - CC 05/26/25 Santa Menon PA-C [address] [place] [address] 250485 Physician Supervisor [employer] Physical Medicine and Rehabilitation 02/25/25 Alessandra Pereira, RN Specialty Cash Processor Neurological Surgery 06/02/25 documented as of this encounter
--- OUTSIDE RECORDS SUMMARY | 2025-07-01 12:00 | XMS_ITS | Encounter Summary ---
Author Organization [place] Address [address] [place] [address] Care Team Providers Care Manager Corporate Communications Name Role Phone Winston Villatoro OD Unavailable [phone] Denise Woodson APRN AGRONOMY TECHNICIAN Unavailable [phone] Usha Simon APRN AGRONOMY TECHNICIAN Unavailable + [phone] Dangelo Salinas MD Unavailable Joya Lira RP Unavailable [phone] Joya Lira [facility] Unavailable [phone] Fabi Coates MD Unavailable [phone] Arthur Salas COMMISSIONING SPECIALIST Unavailable [phone] Randy Maradiaga DO Unavailable + Tete Wang MD Unavailable [phone] Dahlia Joyce MD Unavailable [phone] Lisa Zambrano MD Unavailable + [phone] Tete Wang MD Unavailable [phone] Any Joiner MD Unavailable [phone] Bindu Bueno OD Unavailable [phone] Aftab Finn MD Unavailable Aftab Finn MD Unavailable Denise Woodson APRN AGRONOMY TECHNICIAN Primary Care Provider Red De Los Santos REGISTERED NURSE MATERNAL CHILD Unavailable [phone] Santa Menon PA-C Unavailable [phone] Alessandra Pereira RN Unavailable Reason for Referral * Consultation (Routine: Next available opening) - Pending Review Specialty Diagnoses / Procedures Referred By Nila t Referred To Contact Diagnoses History of CVA (cerebrovascular accident) Cerebrovascular accident (CVA), unspecified mechanism (H) Dizziness Nonintractable headache, unspecified chronicity pattern, unspecified headache type Santa Menon PA-C [address] [place] [address] Phone: tel: fax: Desmond Rascon MD [address] [place] [address] [address] [place] [address] Phone: tel: fax: Referral ID Status Reason Start Date Expiration Date V isits Requested Visits Authorized [id number] Pending Review 07/01/2025 07/01/2026 1 1 Question Answer Reason for Referral: General Neurology Additional Information: Stroke post Angigram, Seizures, and headaches- continued severe symptoms Comments Please be aware that coverage of these services is subject to the terms and limitations of your health insurance plan. Call member services at your health plan with any benefit or coverage questions. Reason for Visit * Reason Comments RECHECK Encounter Details Date Type Department Care Team (Latest Contact Info) Description 07/01/2025 12:00 PM CDT Virtual Visit [facility] [address] [place] [address] Santa Menon PA-C [address] [place] [address] History of CVA (cerebrovascular accident) (Primary Dx); Cerebrovascular accident (CVA), unspecified mechanism (H); Dizziness; Nonintractable headache, unspecified chronicity pattern, unspecified headache type Social History Tobacco Use Types Packs/Day [...] re latives? 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 Video-Visit Details Video visit Start time:11:50 AM Type of service: Video Visit Video End Time:12:26 PM Originating Location (pt. Location): Home Distant Location (provider location): Off- Site Platform used for Video Visit: [facility] PM&R Clinic Note Patient Name: Alcon Zamora : 1975 Medical Record: [id number] History of Present Illness: Initial 12/31/24 Alcon Zamora is a 49 year old female who presents as a new Concussion/TBI Consult. Breifly patienthas a history of fibromuscular dysplasia, EDS [...] and will only drive if its straight. Visit 03/04/25 Patient returns for a follow up. [...] cannot work due to her vision disturbance. Today 07/01/25 Patient returns for a follow up. Patient did see Neurology and was placed on Plavix but unfortunately had side effects again. She started seeing a new physical therapist and feels this has been very helpful. Patient had a follow up with Neurosurgery and due to her symptoms and cognitive deficits itwas suspected to not be able to return to work due to distribution of strokes. From symptoms stand point she still has trouble understanding /processing words, has trouble with VOR and causes dizziness. She has seen an vice president risk management and was noted to have stacked vision and this was through her disability screening. She notes this was when she had no corrective lenses on and only in her right ey. She feels she is still struggling and would not be able to return to work currently. Current Symptoms: 03/26/2025 1:00 PM 04/06/2025 11:00 AM 04/30/2025 11:00 AM CONCUSSION SYMPTOMS ASSESSMENT Headache or Pressure In Head 3 - moderate 1 - mild 3 - moderate Upset Stomach or Throwing Up 0 - none 0 - none 0 - none Problems with Balance 3 - moderate 6 - excruciating 4 - moderate to severe Feeling Dizzy 3 - moderate 6 - excruciating 4 - moderate to severe Sensitivity to Light 5 - severe 5 - severe 5 - severe Sensitivity to Noise 5 - severe 5 - severe 5 - severe Mood Changes 2 - mild to moderate 3 - moderate 2 - mild to moderate Feeling sluggish, hazy, or foggy 4 - moderate to severe 3 - moderate 4 - moderate to severe Trouble Concentrating, Lack of Focus 4 - moderate to severe 4 - moderate to severe 4 - moderate to severe Motion Sickness 2 - mild to moderate 3 - moderate 5 - severe Vision Changes 4 - moderate to severe 5 - severe 4 - moderate to severe Memory Problems 4 - moderate to severe 3 - moderate 4 - moderate to severe Feeling Confused 2 - mild to moderate 2 - mild to moderate 3 - moderate Neck Pain 0 - none 0 - none 0 - none Trouble Sleeping 4 - moderate to severe 3 - moderate 5 - severe Total Number of Symptoms 13 13 13 Symptom Severity Score 45 49 52 06/29/2025 5:23 PM Concussion Clinical Profiles Screen - Questions 1. Feeling sad 1 2. Headache when you wake up 1 3. Difficulty or headache when looking at a phone or computer screen 3 4. Dizziness when you move your head 3 5. Difficulty turning off your thoughts (e.g. rumination) 1 6. Headache with nausea or upset stomach 2 7. Trouble focusing your eyes while reading 3 8. Frontal headache 2 9. Difficulty or discomfort in busy environments 3 10. Constantly thinking about your symptoms 1 11. Headache with sensitivity to light or noise 3 12. Feeling motion sick (sea or car sick) 2 13. Feeling more tired at the end of the day 2 14. Blurry or double vision 3 15. Feeling or sensation of slow wavy dizziness (i.e., lightheadedness) 2 16. Neck pain or stiffness 0 17. Sleeping more than usual 0 18. Sleeping less than usual 3 19. Eye strain (eyes feel tired) during visual activities 3 20. Visual aura (e.g., flashes, stars, spots, flickering light) with or without headache 2 21. Feeling or sensation of fast spinning dizziness (i.e., vertigo) 2 22. Difficulty falling asleep 1 23. Difficulty staying asleep 3 24. Trouble remembering things (e.g., what you completed today or having to re- read information) 3 25. Difficulty moving your neck 0 26. Feeling nervous or anxious 1 27. Increased headache following physical activity 2 28. Increased headache following cognitive activity 3 29. Feeling more stressed than usual 1 06/29/2025 5:23 PM Concussion Clinical Profiles Screen - Scores Raw - Anxiety Mood 5 Raw - Cognitive Fatigue 8 Raw - Migraine 10 Raw - Ocular 14 Raw - Vestibular 12 Raw - Sleep 7 Raw - Neck 0 Ave - Anxiety Mood 1 Ave - Cognitive Fatigue 2.7 Ave - Migraine 2 Ave - Ocular 2.8 Ave - Vestibular 2.4 Ave - Sleep 1.8 Ave - Neck 0 Patient-reported Past Medical and Surgical History: Past [...] Past Surgical History: Procedure Laterality Date C PARALEGAL SUPERVISOR PROCEDURE DATE: vag del. C PARALEGAL SUPERVISOR PROCEDURE DATE: 2000 tubal ligation C PARALEGAL SUPERVISOR PROCEDURE DATE: 1994 D&C CARDIAC SURGERY 06/2006 heart defect repair CHOLECYSTECTOMY 2020 ESOPHAGOSCOPY, GASTROSCOPY, DUODENOSCOPY (EGD), COMBINED N/A 02/08/2021 Procedure: ESOPHAGOGASTRODUODENOSCOPY (EGD); Surgeon: Tuan Miller MD; Location: GI GENITOURINARY SURGERY 2022 GI SURGERY 09/2020 gallbladder removed HC KNEE SCOPE,MED/LAT MENISECTOMY 08/04/2013 LT HEART CATH, CLOSURE ATRIAL SEPTAL DEFECT 06/20/2006 amplatzer septal occluder- serial #[id number] RW PARALEGAL SUPERVISOR (ABSTRACTED) pneumonia several times SOFT TISSUE SURGERY [...] breath, wheezing or cough. 18 g 0 BREO ELLIPTA 200-25 MCG/ACT inhaler Inhale 1 puff into the lungs daily. 180 each 3 cetirizine (ZYRTEC) 10 MG tablet Take 10 [...] onset of dizziness. 10 tablet 0 magnesium 200 MG TABS Take 2 tablets by mouth at bedtime. methylPREDNISolone (MEDROL DOSEPAK) 4 MG tablet therapy pack Follow Package Directions (Patient nottaking: Reported on 05/25/2025) 21 tablet 0 methylPREDNISolone (MEDROL DOSEPAK) 4 MG tablet therapy pack Follow Package Directions 21 tablet 0 psyllium (METAMUCIL) 28.3 % packet Take 1 packet by mouth daily traZODone (DESYREL) 100 MG tablet Take 100 mg by mouth at bedtime. Allergies: Allergies Allergen Reactions Codeine GI Disturbance Other Reaction(s): epigastric pain Acetaminophen-Codeine Nausea and Vomiting and Other (See Comments) Acetaminophen-Codeine Nausea and Vomiting and Other (See Comments) Erythromycin Base GI Disturbance Iodinated Contrast Media Headache, Nausea and Other (See Comments) Mold Dizziness and GI Disturbance Molds & Smuts Dizziness and Nausea Morphine GI Disturbance and Nausea Pollen Extract Other (See Comments) and Unknown Bupropion GI Disturbance, Other (See Comments) and Nausea Diarrhea and stomach ache Doxycycline Rash Erythromycin GI Disturbance ROS: A focused ROS is negative other than the symptoms noted above in the HPI. Physical Examiniation: VITAL SIGNS: [facility] 01/07/2006 BMI: Estimated body mass index is 32.22 kg/m?? as calculated from the following: Height as of 06/02/25: 1.74 m (5' 8.5). Weight as of 06/02/25: 97.5 kg (215 lb). Physical Exam GENERAL: [...] Urine 01/25/2025 Negative Negative mg/dL Final Specific [place] Urine 01/25/2025 1.015 1.003 - 1.035 Final [...] Granulocytes 01/25/2025 0.0 <=0.4 10e3/uL Final Imaging: No recent imaging Assessment/Plan: Assessment: 1. History of CVA (cerebrovascular accident) (Primary) - Adult Neurology Certified Medical Coder Referral; Future 2. Cerebrovascular accident (CVA), unspecified mechanism (H) - Adult Neurology Certified Medical Coder Referral; Future 3. Dizziness - Adult Neurology Certified Medical Coder Referral; Future 4. Nonintractable headache, unspecified chronicity pattern, unspecified headache type - Adult Neurology Certified Medical Coder Referral; Future Patient with history of CVA's and brain injury with continued symptoms and unlikely return to work due to stroke distribution and continued cognitive symptoms. Discussed concept of neuro-plasticity again and how this will contribute to waxing waning symptoms from a brain injury. Discussed how overst imulation or physical /mental exertion can't trigger return of symptoms. Also discussed continuing vision therapy due to her sensitivity to light and stacking with right eye, and also visual motion symptoms with scrolling. Encouraged to continue with PT next week for vestibular symptoms at [facility]. Audiology exam was constant with central vestibular system involvement. Of note MRI in november 2024 did show chronic lacunar infarct which was not present on MRI previously. Discussed seeing outside provider to help with continued symptoms and management from stroke standpoint. Discussed startingRiboflavin 400 mg to help with headaches. Plan: Patient education: In depth discussion and education was provided about the assessment and implications of each of the below recommendations for management. Patient indicated readiness to learn, all questions were answered and understanding of material presented was confirmed. Work-up: sufficient work up Therapy/equipment/braces: Continue therapies Medications: Riboflavin 400mg - side effects discussed Interventions: none Referral / follow up with other providers: Referral to [facility] to Dr. Rascon for outside opinion. Follow up: 3 months Santa Menon PA-C Physical Medicine & Rehabilitation I spent 45 minutes on the date of the encounter [...] documented in this encounter Nursing Notes * Yanelis Guerra - 07/01/2025 12:00 PM CDT Current patient location: [address] [place] [id number] Is the patient currently in the state of [place]? YES Visit mode: VIDEO If the visit is dropped, the patient can be reconnected by:VIDEO VISIT: Text to cell phone: Telephone Information: Will anyone else be joining the visit? NO (If patient encounters technical issues they should call [phone]) Are changes needed to the allergy or medication list? No Are refills needed on medications prescribed by this physician? NO Rooming Documentation: Questionnaire(s) not done per department protocol Reason for visit: RECHECK Depression Response Patient completed the PHQ-9 assessment for depression and scored >9? Yes Question 9 on the PHQ-9 was positive for suicidality? No Does patient have current mental health provider? No Is this a virtual visit? Yes Does patient have suicidal ideation (positive question 9)? No - offer to place Mental Health Referral. Patient declined referral/not needed I personally notified the following: visit provider Yanelis Guerra VVF documented in this encounter Plan of Treatment Upcoming Encounters Date Type Department Care Team (Late st Contact Info) Description 07/09/2025 11:00 AM CDT Virtual Visit [address] [phone] Bindu Bueno, OD [address] [place], [place] [phone] Rubi Johnson, OT [address] [address] 07/15/2025 2:30 PM CDT Office Visit [facility] [address] [place] [phone] Denise Woodson APRN AGRONOMY TECHNICIAN [address] [place], [place] [phone] 07/16/2025 11:00 AM CDT Virtual Visit [facility] [place] [address] [facility] [place] [phone] Bindu Bueno, OD [address] [place], [place] [phone] Rubi Johnson, OT [facility] [address] [place] [address] 07/23/2025 11:00 AM SANITATION OFFICER Virtual Visit [facility] [address] [facility] [place] [phone] Bindu Bueno, OD [address] [place], [place] [address] Rubi Johnson, OT [facility] [address] [place] [address] 08/03/2025 11:00 AM SANITATION OFFICER Virtual Visit [facility] [address] [facility] [place] [phone] Bindu Bueno, OD [address] [place], [place] [phone] Rubi Johnson, OT [facility] [address] [place] [address] 08/03/2025 4:30 PM SANITATION OFFICER Virtual Visit [facility] [address] [phone] Any Joiner MD [address] [facility] [address] [place], [place] [address] 08/17/2025 12:45 PM SANITATION OFFICER Virtual Visit [facility] [address] [place] [phone] Bindu Bueno, OD [address] [place] [phone] Rubi Johnson, OT [facility] [address] [place] [address] 10/04/2025 10:15 AM SANITATION OFFICER Virtual Visit [facility] [address] [phone] Santa Menon, PANilesC [address] [place] [id number] 01/19/2026 11:30 AM CDT Office Visit [facility] [address] [phone] Randy Maradiaga, [address] [place] [phone] Scheduled Referrals Name Type Priority Associated Diagnoses Orde r Schedule Adult Neurology Certified Medical Coder Referral Referral Routine: Next available opening History of CVA (cerebrovascular accident) Cerebrovascular accident (CVA), unspecified mechanism (H) Dizziness Nonintractable headache, unspecified chronicity pattern, unspecified headache type Expected: 07/01/2025 (Approximate), Expires: 07/01/2026 documented as of this encounter Goals Goal [...] work. 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 Working with a [employer] for Federal Disability. 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 through [employer] I will use [...] (TIA), and cerebral infarction without residual deficits Cerebrovascular accident (CVA), unspecified mechanism (H) Dizziness Dizziness and giddiness Nonintractable headache, unspecified chronicity pattern, unspecified headache type documented in this encounter Additional Health Concerns Active Problems Noted Date Diagnosed Date Patient expresses financial resource strain 05/17 Assessment Noted Time PHQ-9 Depression Total Score: 12 025 11:46 AM CDT documented as of this encounter Care Teams Manager Corporate Communications Relationship Specialty Start Date End Date Winston Villatoro OD [facility] [address] [facility] [address] [place] [address] PCP - Ophthalmology Ophthalmology 02/11/13 Denise Woodson APRN AGRONOMY TECHNICIAN [address] [address] [address] PCP - General Family Practice 05/26/25 Denise Woodson APRN AGRONOMY TECHNICIAN [address] [address] [address] Assigned PCP 07/17/20 Usha Simon APRN AGRONOMY TECHNICIAN [address] [facility] [place] [id number] [address] Nurse Practitioner Neurological Surgery 01/24/24 Dangelo Salinas MD [address] [place] [address] Neurology 01/27/24 Joya Lira RPH [address] [place] [address] Pharmacist Pharmacist 05/25/24 Joya Lira RPH [address] [place] [address] Assigned MTM Pharmacist 06/08/24 Fabi Coates MD [address] [facility] 75 [place] [address] Genetics, Clinical 06/18/24 Arthur Salas [facility] [address] [place] [address] Assigned Behavioral Health Provider 08/08/24 Randy Maradiaga DO [address] [place] [address] Assigned Neuroscience Provider 08/08/24 Tete Wang MD [address] [place] [address] Genetics, Clinical 10/30/24 Dahlia Joyce MD [address] [place] [address] Radiology Neuroradiology 11/17/24 Lisa Zambrano MD [address] [facility] [address] [place], [place] [address] Assigned Heart and Vascular Provider 12/06/24 Tete Wang MD [address] [place], [place] 8[address] Assigned Pediatric Specialist Provider 01/06/25 Any Joiner MD [address] [place] [address] 276 [place], [place] [phone] Assigned Pulmonology Provider 02/05/25 Myles Bindu, OD [address] [place] [address] [id number] Assigned Surgical Provider 03/08/25 Aftab Finn MD [address] [address] Dermatology 03/17/25 Aftab Finn MD [address] [place] [address] Assigned Dermatology Provider 04/07/25 Red De Los Santos LSW Lead Windows Security Analyst Primary Care - CC 05/26/25 Santa Menon, PA-C [address] [place] [address] [id number] Physician Institutional Nutrition Consultant Physical Medicine and Rehabilitation 02/25/25 Alessandra Pereira RN Specialty Windows Security Analyst Neurological Surgery 06/02/25 documented as of this encounter
[2025-07-07 17:18] VITALS: BP 171/81; PULSE 76; RESP 16; TEMP 36.4; O2SAT 99
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
--- NOTE | 2025-07-07 18:07 | CT_ITS ---
Patient: CHRISTOPHER TY Facility:?[facility] Patient ID:?[id number] Site Patient ID:?[id number]. Site :?[id number] Study:?CT-Neck Angio Angio 95CC ISOVUE 370 NONACUTE-07/07/2025 6:58:34 PM Ordering Physician:John Tay Final Report: DATE: 07/07/2025 CLINICAL HISTORY: Patient with neck pain, headache and dizziness. TECHNIQUE: Standard helical CT image acquisition through the head and neck was performed after intravenous contrast bolus enhancement. 2D and 3D MIP images for post- processing were performed and interpreted on an independent workstation and 3D images were permanently archived. COMPARISON: CT same day. FINDINGS: The origins of the great vessels from the aortic arch are patent. The origin of the right vertebral artery is patent. The origin of the left vertebral artery is patent. The common carotid arteries are patent There is no stenosis at the origin of the right internal carotid artery. There is no stenosis at the origin of the left internal carotid artery. The rest of the cervical segments of the internal carotid arteries are patent up to their intracranial segments. The intracranial segments of the internal carotid arteries are patent. The vertebral arteries are codominant. The cervical segments of the vertebral arteries are patent. The intracranial segments of the vertebral arteries are patent. The middle cerebral arteries are normal without aneurysm or proximal occlusion identified. The anterior cerebral arteries are normal without aneurysm or proximal occlusion identified. The anterior communicating artery is well visualized and appears normal. The basilar artery is normal without aneurysm or occlusion. The posterior cerebral arteries are normal without aneurysm or proximal occlusion. There is normal opacification of major intracranial venous structures. The visualized lung apices demonstrate emphysematous changes. The thyroid gland is unremarkable. The soft tissues of the neck are unremarkable. There are degenerative changes in the cervical spine. IMPRESSION: Patent cervical and proximal intracranial vasculature. Please note that all CT scans at this facility use dose modulation, iterative reconstruction, and/or weight-based dosing when appropriate to reduce radiation dose to as low as reasonably achievable. Dictated by Timoteo Gutierrez MD @ 07/07/2025 10:47:55 PM (Electronic Signature)
--- NOTE | 2025-07-07 18:07 | CT_ITS ---
Patient: CHRISTOPHER TY Facility:?[facility] Patient ID:?[id number] Site Patient ID:?[id number]. Site :?[id number] Study:?CT-Head Angio 95CC ISOVUE 370 NONACUTE-07/07/2025 6:58:23 PM Ordering Physician:John Tay Final Report: DATE: 07/07/2025 CLINICAL HISTORY: Patient with neck pain, headache and dizziness. TECHNIQUE: Standard helical CT image acquisition through the head and neck was performed after intravenous contrast bolus enhancement. 2D and 3D MIP images for post- processing were performed and interpreted on an independent workstation and 3D images were permanently archived. COMPARISON: CT same day. FINDINGS: The origins of the great vessels from the aortic arch are patent. The origin of the right vertebral artery is patent. The origin of the left vertebral artery is patent. The common carotid arteries are patent There is no stenosis at the origin of the right internal carotid artery. There is no stenosis at the origin of the left internal carotid artery. The rest of the cervical segments of the internal carotid arteries are patent up to their intracranial segments. The intracranial segments of the internal carotid arteries are patent. The vertebral arteries are codominant. The cervical segments of the vertebral arteries are patent. The intracranial segments of the vertebral arteries are patent. The middle cerebral arteries are normal without aneurysm or proximal occlusion identified. The anterior cerebral arteries are normal without aneurysm or proximal occlusion identified. The anterior communicating artery is well visualized and appears normal. The basilar artery is normal without aneurysm or occlusion. The posterior cerebral arteries are normal without aneurysm or proximal occlusion. There is normal opacification of major intracranial venous structures. The visualized lung apices demonstrate emphysematous changes. The thyroid gland is unremarkable. The soft tissues of the neck are unremarkable. There are degenerative changes in the cervical spine. IMPRESSION: Patent cervical and proximal intracranial vasculature. Please note that all CT scans at this facility use dose modulation, iterative reconstruction, and/or weight-based dosing when appropriate to reduce radiation dose to as low as reasonably achievable. Dictated by Timoteo Gutierrez MD @ 07/07/2025 10:47:15 PM (Electronic Signature)
--- NOTE | 2025-07-07 18:08 | CRLHL7_ITS ---
For Patients: As a result of the Century Cures Act, medical imaging exams and procedure reports are released immediately into your electronic medical record. You may view this report before your referring provider. If you have questions, please contact your health care provider. INDICATION: Posterior neck pain, headache, and dizziness COMPARISON: 03/09/2025 CT head TECHNIQUE: CT of the head without contrast. FINDINGS: Brain, ventricles, and extra-axial spaces: No acute intracranial hemorrhage. Fu-white differentiation is grossly preserved. Size of the ventricles and sulci appears to be commensurate with age. Bones: No acute osseous findings. Small polyp or mucous retention cyst within the left posterior ethmoid air cell. Moderate mucosal thickening and a tiny amount of frothy secretions within the lateral aspect of the left sphenoid sinus. Visualized mastoid air cells are clear. IMPRESSION: 1. No acute intracranial noncontrast CT findings. 2. Moderate mucosal thickening and a tiny amount of frothy secretions within the lateral aspect of the left sphenoid sinus. Correlate clinically to assess for acute sinusitis. Please note that all CT scans at this facility use dose modulation, iterative reconstruction, and/or weight-based dosing when appropriate to reduce radiation dose to as low as reasonably achievable. Dictated by Anil Brown MD @ 07/07/2025 7:07:34 PM (Electronically Signed)
--- OUTSIDE RECORDS SUMMARY | 2025-07-07 18:16 | XMS_ITS | Encounter Summary ---
Author Organization [place] Address [address] [place] [address] Care Team Providers Care Steel Erector Apprentice Name Role Phone Winston Villatoro OD Unavailable +[phone] Denise Woodson APRN RUBBER GOODS REPAIRER Unavailable +[phone] Denise Woodson APRN RUBBER GOODS REPAIRER Primary Care Provider Usha Simon APRN RUBBER GOODS REPAIRER Unavailable + [phone] Dangelo Salinas MD Unavailable Anastasia Stearns RN Unavailable Germaine Aleman CHW Unavailable +[phone] Joya Lira RP Unavailable Joya Lira RP Unavailable +[phone] Fabi Coates MD Unavailable +[phone] Danna CardenasC Unavailable +[phone] SinanselmoledyArthur OPTIMIZATION ANALYST Unavailable +[phone] Randy Maradiaga DO Unavailable + Tete Wang MD Unavailable +[phone] Dahlia Joyce MD Unavailable +[phone] Lisa Zambrano MD Unavailable + [phone] Tete Wang MD Unavailable +[phone] Any Joiner MD Unavailable +[phone] Bindu Bueno OD Unavailable +[phone] Aftab Finn MD Unavailable Randy Maradiaga DO Primary Care Prov ider Aftab Finn MD Unavailable Selena Mcfadden CHW Unavailable [phone] Denise Woodson APRN RUBBER GOODS REPAIRER Primary Care Provider Lesterjoe Red SALESPERSON [employer] [employer] [place] Unavailable +[phone] Santa Menon PA-C Unavailable +[phone] Alessandra Pereira RN Unavailable Encounter Details Date Type Department Care Team (Late st Contact Info) Description 10/21/2024 MyC Medical Advice [facility] [address] [address] Randy Maradiaga, DO [address] [place] [address] Social History Tobacco Use Types Packs/Day [...] How often do you attend shinto or mormonism serv ices? 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 Not on file Not on file Not on file Not on file Not on file Not on file documented as of this encounter Plan of Treatment Upcoming Encounters Date Type Department Care Team (Late st Contact Info) Description 07/09/2025 11:00 AM CDT Virtual Visit [address] [phone] Bindu Bueno, OD 909 [place] [address] Rubi Johnson, OT [address] [address] 07/15/2025 2:30 PM CDT Office Visit [facility] [address] [place] [phone] Denise Woodson APRN [facility] [address] [place] [address] 07/16/2025 11:00 AM CDT Virtual Visit [address] [phone] Bindu Bueno, OD [address] [place], [place] [phone] [facility]i [facility] OT [facility] [address] [place] [address] 07/23/2025 11:00 AM ANALYTICAL LAB ANALYST Virtual Visit [facility] 150 [place] [phone] Bindu Bueno, OD [address] [place] [address] Rubi Johnson, OT [address] [address] 08/03/2025 11:00 AM ANALYTICAL LAB ANALYST Virtual Visit [address] [phone] Bindu Bueno, OD [address] [place], [place] 94[address] Rubi Johnson, OT [address] [address] 08/03/2025 4:30 PM ANALYTICAL LAB ANALYST Virtual Visit [facility] [address] [phone] Any Joiner MD [address] [place] [address] 499065 08/17/2025 12:45 PM ANALYTICAL LAB ANALYST Virtual Visit [address] [phone] Bindu Bueno, OD [address] [place], [place] 306015 Rubi Johnson, OT [address] [address] 10/04/2025 10:15 AM ANALYTICAL LAB ANALYST Virtual Visit [facility] [address] [phone] Santa Menon, PANilesC [address] [place] [address] 158265 01/19/2026 11:30 AM CDT Office Visit [facility] [address] [phone] Randy Maradiaga DO [address] [place] [address] 805585 documented as of this encounter Visit Diagnoses Not on filedocumented in this encounter Additional Health Concerns Infection Onset Date Last Indicated Resolved Time Rule Out COVID-19 11/14/2024 11/14/2024 11/14/2024 8:25 PM ANALYTICAL LAB ANALYST Assessment Noted Time PHQ-9 Depression Total Score: 0 09/18/19 12:46 PM ANALYTICAL LAB ANALYST documented as of this encounter Care Teams Steel Erector Apprentice Relationship Specialty Start Date End Date Winston Villatoro OD [facility] [address] [facility] [address] [place] [address] PCP - Ophthalmology Ophthalmology 02/11/13 Denise Woodson APRN RUBBER GOODS REPAIRER [address] [place] [address] PCP - General Family Practice 09/21/20 04/07/25 Randy Maradiaga DO [address] [place] [address] PCP - General Neurology 04/08/25 05/25/25 Denise Woodson APRN RUBBER GOODS REPAIRER [address] [place] [address] PCP - General Family Practice 05/26/25 Denise Woodson APRN RUBBER GOODS REPAIRER [address] [place] [address] Assigned PCP 07/17/20 Usha Simon APRN RUBBER GOODS REPAIRER 909 [facility], [place] [address] Nurse Practitioner Neurological Surgery 01/24/24 Dangelo Salinas MD [address] [place] [address] Neurology 01/27/24 Anastasia Stearns, RN Lead Cad Design Engineer 02/06/24 12/17/24 Germaine Aleman, W Community Health Worker Primary Care - CC 02/18/2412/17/24 Joya Lira RPH [address] [place] [address] Pharmacist Pharmacist 05/25/24 Joya Lira RPH [address] [place] [address] Assigned MTM Pharmacist 06/08/24 Fabi Coates MD 420 [facility] 75 [place] [address] Genetics, Clinical 06/18/24 Danna Cardenas PA-C 6405 [place] [address] Assigned Heart and Vascular Provider 07/08/24 12/05/24 Arthur Salas LICSW [address] [address] Assigned Behavioral Health Provider 08/08/24 Randy Maradiaga DO [address] [place] [address] 779905 Assigned Neuroscience Provider 08/08/24 Tete Wang MD [address] [place] [address] 714264 Genetics, Clinical 10/30/24 Dahlia Joyce MD [address] [place] [address] 918165 Radiology Neuroradiology 11/17/24 Lisa Zambrano MD [address] [address] Assigned Heart and Vascular Provider 12/06/24 Tete Wang MD [address] [place] [address] 656364 Assigned Pediatric Specialist Provider 01/06/25 Any Joiner MD [address] [place] [address] 616205 Assigned Pulmonology Provider 02/05/25 Bindu Bueno OD 909 [place], [place] 622225 Assigned Surgical Provider 03/08/25 Aftab Finn MD [address] 097820 Dermatology 03/17/25 Aftab Finn MD 500 [place], [place] 893175 Assigned Dermatology Provider 04/07/25 Selena Mcfadden [place] Community Health Worker 05/25/2505/26 Red De Los Santos LSW Lead Cad Design Engineer Primary Care - CC 05/26/25 Santa Menon, PA-C [address] [place] [address] 753955 Physician Furniture Assembler And Installer Physical Medicine and Rehabilitation 02/25/25 Alessandra Pereira, RN Specialty Cad Design Engineer Neurological Surgery 06/02/25 documented as of this encounter
--- OUTSIDE RECORDS SUMMARY | 2025-07-07 18:16 | XMS_ITS ---
Author Organization [place] Address [address] [place] [address] Care Team Providers Care Doll Wig Maker Rooted Hair Name Role Phone Shauna Winston Se OD Unavailable [phone] Denise Woodson APRN CARE TRANSITIONS NURSE Unavailable [phone] Usha Simon APRN CARE TRANSITIONS NURSE Unavailable Dangelo Salinas MD Unavailable Joya Lira RP Unavailable Joya Lira RP Unavailable Fabi Coates MD Unavailable [phone] SinArthur forbes [facility] Unavailable [phone] Randy Maradiaga DO Unavailable + Tete Wang MD Unavailable [phone] Dahlia Joyce MD Unavailable [phone] Lisa Zambrano MD Unavailable Tete Wang MD Unavailable [phone] Any Joiner MD Unavailable [phone] Bindu Bueno OD Unavailable [phone] Aftab Finn MD Unavailable Aftab Finn MD Unavailable Denise Woodson APRN CARE TRANSITIONS NURSE Primary Care Provider Red De Los Santos Unavailable [phone] Santa Menon PA-C Unavailable [phone] Alessandra Pereira RN Unavailable Primary Care Care Coordination Status:Enrolled (Active) Start date:05/25/2025 Enrollment date:05/26/2025 Case Team Name Relationship Phone Red FRANZ(Responsible Staff) Lead Care Co ordinator [phone] Continued Care and Services Coordination
--- OUTSIDE RECORDS SUMMARY | 2025-07-07 18:16 | XMS_ITS | Encounter Summary ---
Author Organization [facility] Address [address] [place] [address] Care Team Providers Care Transporter Radiology Name Role Phone Winston Villatoro OD Unavailable [phone] Denise Woodson APRN BEADING INSTALLER Unavailable +[phone] Denise Woodson APRN BEADING INSTALLER Primary Care Provider Usha Simon APRN BEADING INSTALLER Unavailable + [phone] Dangelo Salinas MD Unavailable Anastasia Stearns RN Unavailable +[phone] Germaine Aleman CHW Unavailable +[phone] Joya Lira RP Unavailable +[phone] Joya Lira RP Unavailable Fabi Coates MD Unavailable [phone] Danna CardenasC Unavailable +[phone] SinanselmoledyArthur LIBRARY MEDIA ASSISTANT Unavailable +[phone] Randy Maradiaga DO Unavailable + Tete Wang MD Unavailable +[phone] Dahlia Joyce MD Unavailable Lisa Zambrano MD Unavailable + [phone] Tete Wang MD Unavailable [phone] Any Joiner MD Unavailable +[phone] Bindu Bueno OD Unavailable [phone] Aftab Finn MD Unavailable Randy Maradiaga DO Primary Care Prov ider Aftab Finn MD Unavailable Lesa Selena CHW Unavailable [phone] Denise Woodson APRN BEADING INSTALLER Primary Care Provider FilibertoRed LAMP DEVELOPER Unavailable [phone] Santa MenonC Unavailable +[phone] Alessandra Pereira RN Unavailable Encounter Details Date Type Department Care Team (Late st Contact Info) Description 10/14/2024 MyC Medical Advice [address] [address] Janeen Badillo Social History Tobacco Use Types [...] How often do you attend christian or jew serv ices? 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 Not on file Not on file Not on file Not on file Not on file Not on file documented as of this encounter Plan of Treatment Upcoming Encounters Date Type Department Care Team (Late st Contact Info) Description 07/09/2025 11:00 AM CDT Virtual Visit [address] [phone] Bindu Bueno, OD 909 [place], [place] [phone] Rubi Johnson, OT [facility] [address] 239637 07/15/2025 2:30 PM CDT Office Visit [facility] [address] [place] [address] eDnise Woodson APRN BEADING INSTALLER [address] [place] [address] 07/16/2025 11:00 AM CDT Virtual Visit [address] [phone] Bindu Bueno, OD 909 [place], [place] 969585 Rubi Johnson, OT [place] [address] [place] [address] 07/23/2025 11:00 AM CLERK SPECIALIST [facility] 150 [place] [phone] Bueno, Bindu, OD 909 [place], [place] 524415 Rubi Johnson, OT [address] [address] 08/03/2025 11:00 AM CLERK SPECIALIST Virtual Visit [address] [phone] Bueno, Bindu, OD 909 [place], [place] 7[address] Rubi Johnson, OT [address] [address] 08/03/2025 4:30 PM CLERK SPECIALIST Virtual Visit [facility] [address] [phone] Any Joiner MD [address] [place] [address] 08/17/2025 12:45 PM CLERK SPECIALIST Virtual Visit [address] [phone] Bueno, Bindu, OD 909 [place] [address] Rubi Johnson, OT [address] [address] 10/04/2025 10:15 AM CLERK SPECIALIST Virtual Visit [facility] [address] [phone] Santa Menon, PANilesC [address] [place] [address] 764775 01/19/2026 11:30 AM CDT Office Visit [facility] [address] [address] Randy Maradiaga DO [address] [place] [address] 121485 documented as of this encounter Visit Diagnoses Not on filedocumented in this encounter Additional Health Concerns Infection Onset Date Last Indicated Resolved Time Rule Out COVID-19 11/14/2024 11/14/2024 11/14/2024 8:25 PM CLERK SPECIALIST Assessment Noted Time PHQ-9 Depression Total Score: 0 09/18/19 12:46 PM CLERK SPECIALIST documented as of this encounter Care Teams Transporter Radiology Relationship Specialty Start Date End Date Winston Villatoro, AMELIE [facility] [address] [facility] [address] [place] [address] PCP - Ophthalmology Ophthalmology 02/11/13 Denise Woodson APRN BEADING INSTALLER [address] [place] [address] PCP - General Family Practice 09/21/20 04/07/25 Randy Maradiaga DO [address] [place] [address] PCP - General Neurology 04/08/25 05/25/25 Densie Woodson APRN BEADING INSTALLER [address] [place] [address] PCP - General Family Practice 05/26/25 Denise Woodson APRN BEADING INSTALLER [address] [place] [address] Assigned PCP 07/17/20 Usha Simon APRN BEADING INSTALLER 909 [facility]121[address]J [place], [place] 99085455 Nurse Practitioner Neurological Surgery 01/24/24 Dangelo Salinas MD [address] [place], [place] [address] Neurology 01/27/24 Anastasia Stearns, RN Lead Product Manager Medical Device 02/06/24 12/17/24 Germaine Aleman, W Community Health Worker Primary Care - CC 02/18/2412/17/24 Jyoa Lira [facility] [address] [place] [address] Pharmacist Pharmacist 05/25/24 Joya Lira [facility] [address] [place] [address] Assigned MTM Pharmacist 06/08/24 Fabi Coates MD 420 [facility] 75 [place] [address] Genetics, Clinical 06/18/24 Danna Cardenas PA-C 6405 [facility] [place] [address] Assigned Heart and Vascular Provider 07/08/24 12/05/24 Arthur Salas LICSW [address] [place] [address] Assigned Behavioral Health Provider 08/08/24 Randy Maradiaga DO [address] [place] [address] 311015 Assigned Neuroscience Provider 08/08/24 Tete Wang MD [address] [place] [address] Genetics, Clinical 10/30/24 Dahlia Joyce MD [address] [place] [address] 769715 Radiology Neuroradiology 11/17/24 Lisa Zambrano MD [address] [address] Assigned Heart and Vascular Provider 12/06/24 Tete Wang MD [address] [place] [address] Assigned Pediatric Specialist Provider 01/06/25 Any Joiner MD [address] [place] [address] 661845 Assigned Pulmonology Provider 02/05/25 Bindu Bueno OD 909 [place] [address] Assigned Surgical Provider 03/08/25 Aftab Finn MD [address] [address] Dermatology 03/17/25 Aftab Finn MD [address] [place] [address] Assigned Dermatology Provider 04/07/25 Selena Mcfadden, [facility] Community Health Worker 05/25/2505/26 Red De Los Santos LSW Lead Product Manager Medical Device Primary Care - CC 05/26/25 Santa Menon, PA-C [address] [place] [address] Physician Die Storage Clerk Physical Medicine and Rehabilitation 02/25/25 Alessandra Pereira, RN Specialty Product Manager Medical Device Neurological Surgery 06/02/25 documented as of this encounter
--- OUTSIDE RECORDS SUMMARY | 2025-07-07 18:16 | XMS_ITS | Encounter Summary ---
Author Organization [facility] Address [address] [place] [address] Care Team Providers Care Manager Solar Name Role Phone Winston Villatoro OD Unavailable [phone] Denise Woodson APRN ASSOCIATE PROFESSOR OF BIBLICAL STUDIES Unavailable [phone] Denise Woodson APRN ASSOCIATE PROFESSOR OF BIBLICAL STUDIES Primary Care Provider Usha Simon APRN ASSOCIATE PROFESSOR OF BIBLICAL STUDIES Unavailable + [phone] Dangelo Salinas MD Unavailable Anastasia Stearns RN Unavailable Germaine Aleman CHW Unavailable [phone] Joya Lira RP Unavailable +[phone] Joya Lira RP Unavailable Fabi Coates MD Unavailable [phone] Danna CardenasC Unavailable [phone] SinanselmoledyArthur POLY OPERATOR Unavailable +[phone] Randy Maradiaga DO Unavailable + Tete Wang MD Unavailable +[phone] Dahlia Joyce MD Unavailable +[phone] Lisa Zambrano MD Unavailable + [phone] Tete Wang MD Unavailable [phone] Any Joiner MD Unavailable +[phone] Bindu Bueno OD Unavailable [phone] Aftab Finn MD Unavailable Randy Maradiaga DO Primary Care Prov ider Aftab Finn MD Unavailable Selena Mcfadden W Unavailable [phone] Denise Woodson APRN ASSOCIATE PROFESSOR OF BIBLICAL STUDIES Primary Care Provider LesterDarshan diaza AUDITOR APPRAISER Unavailable [phone] Santa Menon PA-C Unavailable +[phone] Alessandra Pereira RN Unavailable Encounter Details Date Type Department Care Team (Late st Contact Info) Description 11/24/2024 MyC Medical Advice [facility] [address] [place] [address] Denise Woodson APRN ASSOCIATE PROFESSOR OF BIBLICAL STUDIES [address] [place] [address] Social History Tobacco Use Types [...] Never 09/16/2024 How often do you attend pentecostalism or holiness serv ices? Never 09/16/2024 Do [...] Date Recorded PHQ-2 Score 0 11/13/2024 [facility] of Occupat ional Health [...] Forms have not been received yet. Anastasia Velasquez [employer] documented in this encounter Plan of Treatment Upcoming Encounters Date Type Department Care Team (Late st Contact Info) Description 07/09/2025 11:00 AM CDT Virtual Visit [facility] [address] [phone] Bindu Bueno, OD 909 [place] [address] Rubi Johnson, OT [address] [address] 07/15/2025 2:30 PM CDT Office Visit [facility] [address] [place] [address] Denise Woodson APRN [facility] [address] [place] [address] 07/16/2025 11:00 AM CDT Virtual Visit [address] [phone] Bindu Bueno, OD 909 [place], [place] 117605 Rubi Johnson, OT [address] [address] 07/23/2025 11:00 AM LIFT SUPERVISOR Virtual Visit [address] [phone] MylesBindu, OD 9 [place], [place] 147555 Rubi Johnson, OT [address] [address] 08/03/2025 11:00 AM LIFT SUPERVISOR Virtual Visit [address] [phone] Myles Bindu, OD 909 [place] [address] Rubi Johnson, OT [address] [address] 08/03/2025 4:30 PM LIFT SUPERVISOR Virtual Visit [facility] [address] [address] Any Joinre MD [address] [place] [address] [place] [address] 08/17/2025 12:45 PM LIFT SUPERVISOR Virtual Visit [facility] [address] [phone] Bindu Bueno, OD [address] [place] [address] 518515 Rubi Johnson, OT F[place] [address] [address] 10/04/2025 10:15 AM LIFT SUPERVISOR Virtual Visit [facility] [address] [phone] Santa Menon, PA-C [address] [place] [address] 604755 01/19/2026 11:30 AM CDT Office Visit [facility] [address] [phone] Randy Maradiaga, [address] [place] [address] 030745 documented as of this encounter Visit Diagnoses Not on filedocumented in this encounter Additional Health Concerns Assessment Noted Time PHQ-9 Depression Total Score: 0 09/18/19 25 12:46 PM LIFT SUPERVISOR documented as of this encounter Care Teams Manager Solar Relationship Specialty Start Date End Date Winston Villatoro, OD [facility] [place] [address] [place] [address] PCP - Ophthalmology Ophthalmology 02/11/13 Denise Woodson APRN ASSOCIATE PROFESSOR OF BIBLICAL STUDIES [address] [place] [address] PCP - General Family Practice 09/21/20 04/07/25 Randy Maradiaga DO 9 [place] [address] PCP - General Neurology 04/08/25 05/25/25 Denise Woodson APRN ASSOCIATE PROFESSOR OF BIBLICAL STUDIES [address] [place] [address] PCP - General Family Practice 05/26/25 Denise Woodson APRN ASSOCIATE PROFESSOR OF BIBLICAL STUDIES [address] [place] [address] Assigned PCP 07/17/20 Usha Simon APRN ASSOCIATE PROFESSOR OF BIBLICAL STUDIES [address] [place] [address] MA6049CU [place] [address] Nurse Practitioner Neurological Surgery 01/24/24 Dangelo Salinas MD [address] [address] Neurology 01/27/24 Anastasia Stearns, RN Lead Cigarette Inspector 02/06/24 12/17/24 Germaine Aleman, CHW Community Health Worker Primary Care - CC 02/18/2412/17/24 Joya Lira RPH [address] [place] [address] Pharmacist Pharmacist 05/25/24 Joya Lira RPH [address] [place] [address] Assigned [place] Pharmacist 06/08/24 Fabi Coates MD [address] [place] [address] 75 [place] [address] Genetics, Clinical 06/18/24 Danna Cardenas PA-C [address] [place] [address] Assigned Heart and Vascular Provider 07/08/24 12/05/24 Arthur Salas POLY OPERATOR [address] [place] [address] Assigned Behavioral Health Provider 08/08/24 Randy Maradiaga DO [address] [place] [address] Assigned Neuroscience Provider 08/08/24 Tete Wang MD [address] [place] [address] Genetics, Clinical 10/30/24 Dahlia Joyce MD [address] [place] [address] Radiology Neuroradiology 11/17/24 Lisa Zambrano MD [address] [address] Assigned Heart and Vascular Provider 12/06/24 Tete Wang MD [address] [place] [address] Assigned Pediatric Specialist Provider 01/06/25 Any Joiner MD [address] [place] [address] 205905 Assigned Pulmonology Provider 02/05/25 Myles BinduAMELIE [address] [place] [address] Assigned Surgical Provider 03/08/25 Aftab Finn MD [address] [address] Dermatology 03/17/25 Aftab Finn MD 500 [place] [address] Assigned Dermatology Provider 04/07/25 Selena Mcfadden, [facility] Community Health Worker 05/25/2505/26 Red De Los Santos LSW Lead Cigarette Inspector Primary Care - CC 05/26/25 Santa Menon, PA-C [address] [place] [address] Physician Machine Heel Seat Fitter Physical Medicine and Rehabilitation 02/25/25 Alessandra Pereira, RN Specialty Cigarette Inspector Neurological Surgery 06/02/25 documented as of this encounter
--- OUTSIDE RECORDS SUMMARY | 2025-07-07 18:16 | XMS_ITS | Encounter Summary ---
Author Organization [facility] Address [address] [place] [address] Care Team Providers Care Sanitary Aide Name Role Phone Winston Villatoro OD Unavailable +[phone] Denise Woodson APRN LEGAL OPERATIONS MANAGER Unavailable +[phone] Denise Woodson APRN LEGAL OPERATIONS MANAGER Primary Care Provider Usha Simon APRN LEGAL OPERATIONS MANAGER Unavailable + [phone] Dangelo Salinas MD Unavailable Anastasia Stearns RN Unavailable +[phone] Germaine Aleman CHW Unavailable +[phone] Joya Lira RP Unavailable Joya Lira RP Unavailable Fabi Coates MD Unavailable +[phone] Danna CardenasC Unavailable +[phone] SinanselmoledyArthur CAN HANDLER Unavailable +[phone] Meche Lombardi DO Unavailable + Tete Wang MD Unavailable +[phone] Dahlia Joyce MD Unavailable +[phone] Lisa Zambrano MD Unavailable + [phone] Tete Wang MD Unavailable +[phone] Any Joiner MD Unavailable +[phone] Bindu Bueno OD Unavailable +[phone] Aftab Finn MD Unavailable Meche Lombardi DO Primary Care Prov ider Aftab Finn MD Unavailable Lesa Selena CHW Unavailable +[phone] Denise Woodson APRN LEGAL OPERATIONS MANAGER Primary Care Provider Filiberto Red CANDY SEPARATOR HARD Unavailable [phone] Santa MenonC Unavailable +[phone] Alessandra Pereira RN Unavailable Reason for Visit * Reason Onset Date Comments Appointment 11/16/2024 Encounter Details Date Type Department Care Team (Late st Contact Info) Description 11/16/2024 Telephone [facility] Audiology [address] [place] [address] Unknown Appointment Social History Tobacco [...] Never 09/16/2024 How often do you attend baptist or islam serv ices? 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 Not on file Not on file Not on file Not on file Not on file Not on file documented as of this encounter Miscellaneous Notes * Telephone Encounter - Nicolasa Appiah - 11/16/2024 12:51 PM CST [facility] Call Center Phone Message May a detailed [...] Travel Screening: Not Applicable Date of Service: ING SIGNAL OFFICER documented in this encounter Plan of Treatment Upcoming Encounters Date Type Department Care Team (Late st Contact Info) Description 07/09/2025 11:00 AM CDT Virtual Visit [facility] Rehabilitation Services [address] [phone] Bindu Bueno, OD 909 [place], [place] 445145 Rubi Johnson, OT [address] 669137 07/15/2025 2:30 PM CDT Office Visit [facility] [address] [place] [phone] Chintan DeniseBARRERA diaz LEGAL OPERATIONS MANAGER [address] [place] [address] 07/16/2025 11:00 AM CDT [facility] [address] [place] [phone] BuenoBindu, OD 909 [place], [place] 376645 Rubi Johnson, OT [address] [address] 07/23/2025 11:00 AM LANDING SIGNAL OFFICER Virtual Visit [address] [phone] BuenoBindu, OD 909 [place], [place] 359625 Rubi Johnson, OT [address] [address] 08/03/2025 11:00 AM LANDING SIGNAL OFFICER Virtual Visit [facility] 150 [place] [phone] Bueno, Bindu, OD 909 [place], [place] 982885 Rubi Johnson, OT [address] [address] 08/03/2025 4:30 PM LANDING SIGNAL OFFICER Virtual Visit [facility] [address] [phone] Any Joiner MD [address] [place] [address] 276 [place] [address] 08/17/2025 12:45 PM LANDING SIGNAL OFFICER Virtual Visit [facility] [address] [phone] Bindu Bueno, OD [address] [place] [address] 531895 Rubi Johnson, OT [address] [address] 10/04/2025 10:15 AM LANDING SIGNAL OFFICER Virtual Visit [facility] [address] [phone] Santa Menon, PA-C [address] [place] [address] 35695455 01/19/2026 11:30 AM CDT Office Visit [facility] Neurology Clinic [address] [address] Meche Lombardi DO [address] [place] [address] 874225 documented as of this encounter Visit Diagnoses Not on filedocumented in this encounter Additional Health Concerns Assessment Noted Time PHQ-9 Depression Total Score: 0 09/18/19 25 12:46 PM LANDING SIGNAL OFFICER documented as of this encounter Care Teams Sanitary Aide Relationship Specialty Start Date End Date Winston Villatoro, OD [facility] [place] [address] [address] PCP - Ophthalmology Ophthalmology 02/11/13 Denise Woodson APRN LEGAL OPERATIONS MANAGER [address] [place] [address] PCP - General Family Practice 09/21/20 04/07/25 Meche Lombardi DO 909 [place] [address] PCP - General Neurology 04/08/25 05/25/25 Denise Woodson APRN LEGAL OPERATIONS MANAGER [address] [place] [address] PCP - General Family Practice 05/26/25 Denise Woodson APRN LEGAL OPERATIONS MANAGER [address] [place] [address] Assigned PCP 07/17/20 Usha Simon APRN LEGAL OPERATIONS MANAGER [address] [facility] PC5856FN [place] [address] Nurse Practitioner Neurological Surgery 01/24/24 Dangelo Salinas MD [address] [place] [address] Neurology 01/27/24 Anastasia Stearns, RN Lead Dynamite Packing Machine Operator 02/06/24 12/17/24 Germaine Aleman, CHW Community Health Worker Primary Care - CC 02/18/2412/17/24 Joya Lira RPH [address] [place] [address] Pharmacist Pharmacist 05/25/24 SorayaJoya [facility] [address] [place] [address] Assigned MTM Pharmacist 06/08/24 Fabi Coates MD [address] [place] [address] 75 [place] [address] Genetics, Clinical 06/18/24 Danna Cardenas PA-C 6405 [place] [address] Assigned Heart and Vascular Provider 07/08/24 12/05/24 Arthur Salas [facility] [address] [place] [address] Assigned Behavioral Health Provider 08/08/24 Meche Lombardi DO [address] [place] [address] 927765 Assigned Neuroscience Provider 08/08/24 Tete Wang MD [address] [place] [address] Genetics, Clinical 10/30/24 Dahlia Joyce MD [address] [place] [address] 670015 Radiology Neuroradiology 11/17/24 Lisa Zambrano MD [address] 250055 Assigned Heart and Vascular Provider 12/06/24 Tete Wang MD 2450 [place], [place] 266274 Assigned Pediatric Specialist Provider 01/06/25 Any Joiner MD [address] [place] [address] Assigned Pulmonology Provider 02/05/25 Bindu Bueno OD [address] [place] [address] Assigned Surgical Provider 03/08/25 Aftab Finn MD [address] 522200 Dermatology 03/17/25 Aftab Finn MD 500 [place], [place] 804305 Assigned Dermatology Provider 04/07/25 Selena Mcfadden, [facility] Community Health Worker 05/25/2505/26 Red De Los Santos LSW Lead Dynamite Packing Machine Operator Primary Care - CC 05/26/25 Santa Menon PA-C [address] [place] [address] Physician Seater Assembler Physical Medicine and Rehabilitation 02/25/25 Alessandra Pereira, RN Specialty Dynamite Packing Machine Operator Neurological Surgery 06/02/25 documented as of this encounter
--- OUTSIDE RECORDS SUMMARY | 2025-07-07 18:16 | XMS_ITS | Encounter Summary ---
Author Organization [facility] Address [address] [place] [address] Care Team Providers Care Normalizer Name Role Phone Winston Villatoro OD Unavailable +[phone] Denise Woodson APRN GLOBAL VP CREATIVE + CONTENT MARKETING Unavailable +[phone] Denise Woodson APRN GLOBAL VP CREATIVE + CONTENT MARKETING Primary Care Provider Usha Simon APRN GLOBAL VP CREATIVE + CONTENT MARKETING Unavailable + [phone] Dangelo Salinas MD Unavailable Anastasia Stearns RN Unavailable +[phone] Germaine Aleman CHW Unavailable +[phone] Joya Lira RP Unavailable +[phone] Joya Lira RP Unavailable +[phone] Fabi Coates MD Unavailable [phone] Danna CardenasC Unavailable +[phone] SinanselmoledyArthur INSIDE SOLAR SALES CONSULTANT Unavailable +[phone] Randy Maradiaga DO Unavailable + Tete Wang MD Unavailable +[phone] Dahlia Jocye MD Unavailable +[phone] Lisa Zambrano MD Unavailable + [phone] Tete Wang MD Unavailable +[phone] Any Joiner MD Unavailable +[phone] Bindu Bueno OD Unavailable +[phone] Aftab Finn MD Unavailable Randy Maradiaga DO Primary Care Prov ider Aftab Finn MD Unavailable Marquezlaura Selena CHW Unavailable [phone] Denise Woodson APRN GLOBAL VP CREATIVE + CONTENT MARKETING Primary Care Provider Lesterjoe Red BRASS POURER Unavailable +[phone] Santa Menon PA-C Unavailable +[phone] Alessandra Pereira RN Unavailable Encounter Details Date Type Department Care Team (Late st Contact Info) Description 11/20/2024 MyC Medical Advice [facility] Neurology [address], [address] [place] [address] Dahlia Joyce MD [address] [place] [address] Social History Tobacco Use Types Packs/Day [...] How often do you attend pentecostal or yarsani serv ices? 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 Not on file Not on file Not on file Not on file Not on file documented as of this encounter Plan of Treatment Upcoming Encounters Date Type Department Care Team (Late st Contact Info) Description 07/09/2025 11:00 AM CDT Virtual Visit [address] [phone] Bindu Bueno, OD [address] [place], [place] 816425 Rubi Johnson, OT [address] [address] 07/15/2025 2:30 PM CDT Office Visit [facility] [address] [place] [address] Denise Woodson APRN [facility] [address] [place] [address] 07/16/2025 11:00 AM CDT Virtual Visit [address] [phone] Bindu Bueno, OD [address] [place] [address] Rubi Johnson, OT [address] [address] 07/23/2025 11:00 AM CARDER BLANKETS Virtual Visit [address] [phone] Bindu Bueno, OD [address] [place] [address] Rubi Johnson, OT [address] [address] 08/03/2025 11:00 AM CARDER BLANKETS Virtual Visit [address] [phone] Bindu Bueno, OD [address] [place], [place] 926525 Rubi Johnson, OT [address] [address] 08/03/2025 4:30 PM CARDER BLANKETS Virtual Visit [facility] [address] [phone] Any Joiner MD [address] [place] [address] 970435 08/17/2025 12:45 PM CARDER BLANKETS Virtual Visit [address] [phone] Bindu Bueno, OD [address] [place] [address] Rubi Johnson, OT [address] [address] 10/04/2025 10:15 AM CARDER BLANKETS Virtual Visit [facility] [address] [phone] Santa Menon, PANilesC [address] [place] [address] 01/19/2026 11:30 AM CDT Office Visit [facility] Neurology Clinic [address] [phone] Randy Maradiaga DO [address] [place] [address] 979745 documented as of this encounter Visit Diagnoses Not on filedocumented in this encounter Additional Health Concerns Assessment Noted Time PHQ-9 Depression Total Score: 0 09/18/19 12:46 PM CARDER BLANKETS documented as of this encounter Care Teams Normalizer Relationship Specialty Start Date End Date Winston Villatoro OD [facility] 701 [facility] [address] [place] [address] PCP - Ophthalmology Ophthalmology 02/11/13 Denise Woodson APRN GLOBAL VP CREATIVE + CONTENT MARKETING [address] [place] [address] PCP - General Family Practice 09/21/20 04/07/25 Randy Maradiaga DO [address] [place] [address] PCP - General Neurology 04/08/25 05/25/25 Denise Woodson APRN GLOBAL VP CREATIVE + CONTENT MARKETING [address] [place] [address] PCP - General Family Practice 05/26/25 Denise Woodson APRN GLOBAL VP CREATIVE + CONTENT MARKETING [address] [place] [address] Assigned PCP 07/17/20 Usha Simon APRN GLOBAL VP CREATIVE + CONTENT MARKETING 909 [facility], [place] 155835 Nurse Practitioner Neurological Surgery 01/24/24 Dangelo Salinas MD [address] [place], [place] [phone] Neurology 01/27/24 Anastasia Stearns, RN Lead Rubber Goods Cutter Finisher 02/06/24 12/17/24 Germaine Aleman, W Community Health Worker Primary Care - CC 02/18/2412/17/24 Joya Lira [facility] [address] [place] [address] Pharmacist Pharmacist 05/25/24 Joya Lira [facility] [address] [place] [address] Assigned MTM Pharmacist 06/08/24 Fabi Coates MD 420 [facility] 75 [place] [address] Genetics, Clinical 06/18/24 Danna Cardenas, PANilesC 6405 [place] [address] Assigned Heart and Vascular Provider 07/08/24 12/05/24 Maritza Arthur INSIDE SOLAR SALES CONSULTANT [address] [place] [address] Assigned Behavioral Health Provider 08/08/24 Randy Maradiaga DO [address] [place] [address] 161385 Assigned Neuroscience Provider 08/08/24 Tete Wang MD [address] [place] [address] 431324 Genetics, Clinical 10/30/24 Dahlia Joyce MD [address] [place] [address] 927515 Radiology Neuroradiology 11/17/24 Lisa Zambrano MD [address] [address] Assigned Heart and Vascular Provider 12/06/24 Tete Wang MD [address] [place] [address] Assigned Pediatric Specialist Provider 01/06/25 Any Joiner MD [address] [place] [address] Assigned Pulmonology Provider 02/05/25 Bindu Bueno OD [address] [place] [address] Assigned Surgical Provider 03/08/25 Aftab Finn MD [address] [address] Dermatology 03/17/25 Aftab Finn MD [address] [place] [address] Assigned Dermatology Provider 04/07/25 Selena Mcfadden, [facility] Community Health Worker 05/25/2505/26 Red De Los Santos LSW Lead Rubber Goods Cutter Finisher Primary Care - CC 05/26/25 Santa Menon, PA-C [address] [place] [address] Physician Pipe Fitter Apprentice Physical Medicine and Rehabilitation 02/25/25 Alessandra Pereira, RN Specialty Rubber Goods Cutter Finisher Neurological Surgery 06/02/25 documented as of this encounter
--- OUTSIDE RECORDS SUMMARY | 2025-07-07 18:16 | XMS_ITS | Encounter Summary ---
Author Organization [facility] Address [address] [place] [address] Care Team Providers Care Topstitcher Zigzag Name Role Phone Winston Villatoro OD Unavailable [phone] Denise Woodson APRN SURVEILLANCE OFFICER Unavailable +[phone] Denise Woodson APRN SURVEILLANCE OFFICER Primary Care Provider Usha Simon APRN SURVEILLANCE OFFICER Unavailable + [phone] Dangelo Salinas MD Unavailable Anastasia Stearns RN Unavailable +[phone] Germaine Aleman CHW Unavailable +[phone] Joya Lira RP Unavailable +[phone] Joya Lira RP Unavailable Fabi Coates MD Unavailable [phone] Danna CardenasC Unavailable +[phone] SinanselmoledyArthur BRANCH GENERAL MANAGER Unavailable +[phone] Randy Maradiaga DO Unavailable + Tete Wang MD Unavailable +[phone] Dahlia Joyce MD Unavailable +[phone] Lisa Zambrano MD Unavailable + [phone] Tete Wang MD Unavailable +[phone] Any Joinre MD Unavailable +[phone] Bindu Bueno OD Unavailable +[phone] Aftab Finn MD Unavailable Randy Maradiaga DO Primary Care Prov ider Aftab Finn MD Unavailable Lesa Selena CHW Unavailable [phone] Denise Woodson APRN SURVEILLANCE OFFICER Primary Care Provider Filiberto Red CERTIFIED HOME HEALTH AIDE Unavailable +[phone] Santa MenonC Unavailable +[phone] Alessandra Pereira RN Unavailable Encounter Details Date Type Department Care Team (Late st Contact Info) Description 11/26/2024 MyC Medical Advice [address] [address] Qing Valentine Social History Tobacco Use [...] Never 09/16/2024 How often do you attend anglican or taoism serv ices? Never 09/16/2024 Do [...] Answer Date Recorded PHQ-2 Score 0 11/13/2024 [facility] - Occupational Stress Questionnaire Answer [...] on file Legal Sex Female 4:05 AM ABALONE SHELLER Gender Identity Not on file Sexual Orientation [...] Description 07/09/2025 11:00 AM CDT Virtual Visit [address] [phone] Bindu Bueno, OD [address] [place], [place] [phone] Rubi Johnson, OT [facility] [address] 780617 07/15/2025 2:30 PM CDT Office Visit [facility] [address] [place] [address] Denise Woodson APRN [facility] [address] [place], [place] 4749168 07/16/2025 11:00 AM CDT Virtual Visit [address] [phone] Bindu Bueno, OD [address] [place], [place] 662425 Rubi Johnson, OT [address] [address] 07/23/2025 11:00 AM ABALONE SHELLER Virtual Visit [address] [phone] Bindu Bueno, OD [address] [place], [place] 676[address] Rubi Johnson, OT [address] [address] 08/03/2025 11:00 AM ABALONE SHELLER Virtual Visit [address] [phone] BuenoBindu flores, OD [address] [place], [place] 135385 Rubi Johnson, OT [address] [address] 08/03/2025 4:30 PM ABALONE SHELLER Virtual Visit [facility] [address] [phone] Any Joiner MD [address] [place] [address] 029735 08/17/2025 12:45 PM ABALONE SHELLER Virtual Visit [address] [phone] Bindu Bueno, OD [address] [place], [place] 707545 Rubi Johnson, OT [address] [address] 10/04/2025 10:15 AM ABALONE SHELLER Virtual Visit [facility] Rehabilitation Clinic [address] [phone] Santa Menon, PAMani [address] [place] [address] 392995 01/19/2026 11:30 AM CDT Office Visit [facility] Neurology Clinic [address] [phone] Randy Maradiaga DO [address] [place] [address] 497665 documented as of this encounter Visit Diagnoses Not on filedocumented in this encounter Additional Health Concerns Assessment Noted Time PHQ-9 Depression Total Score: 0 09/18/19 12:46 PM ABALONE SHELLER documented as of this encounter Care Teams Topstitcher Zigzag Relationship Specialty Start Date End Date Winston Villatoro OD [address] [place] [address] PCP - Ophthalmology Ophthalmology 02/11/13 Denise Woodson APRN SURVEILLANCE OFFICER [address] [place] [address] PCP - General Family Practice 09/21/20 04/07/25 Randy Maradiaga DO [address] [place] [address] PCP - General Neurology 04/08/25 05/25/25 Denise Woodson APRN SURVEILLANCE OFFICER [address] [place] [address] PCP - General Family Practice 05/26/25 Denise Woodson APRN SURVEILLANCE OFFICER [address] [place] [address] Assigned PCP 07/17/20 Usha Simon APRN SURVEILLANCE OFFICER 909 [facility] [place], [place] [address] Nurse Practitioner Neurological Surgery 01/24/24 Dangelo Salinas MD [address] [place], [place] [phone] Neurology 01/27/24 Anastasia Stearns, RN Lead Outside Plant Engineer 02/06/24 12/17/24 Germaine Aleman, W Community Health Worker Primary Care - CC 02/18/2412/17/24 Joya Lira [facility] [address] [place], [place] [address] Pharmacist Pharmacist 05/25/24 Joya Lira [facility] [address] [place], [place] [phone] Assigned MTM Pharmacist 06/08/24 Fabi Coates MD [address] [facility] 75 [place], [place] 480725 Genetics, Clinical 06/18/24 Danna Cardenas, BLACKC 6405 [place], [place] 281915 Assigned Heart and Vascular Provider 07/08/24 12/05/24 Arthur Salas, BRANCH GENERAL MANAGER [address] [place] [address] Assigned Behavioral Health Provider 08/08/24 Randy Maradiaga DO [address] [place] [address] 386105 Assigned Neuroscience Provider 08/08/24 Tete Wang MD [address] [place] [address] 569514 Genetics, Clinical 10/30/24 Dahlia Joyce MD [address] [place] [address] 274115 Radiology Neuroradiology 11/17/24 Lisa Zambrano MD [address] [place], [place] [address] [place], [place] 193185 Assigned Heart and Vascular Provider 12/06/24 Tete Wang MD [address] [place] [address] 787914 Assigned Pediatric Specialist Provider 01/06/25 Any Joiner MD [address] [place] [address] 122685 Assigned Pulmonology Provider 02/05/25 Bindu Bueno OD [address] [place] [address] 404955 Assigned Surgical Provider 03/08/25 Aftab Finn MD [address] [address] Dermatology 03/17/25 Aftab Finn MD 500 [place] [address] Assigned Dermatology Provider 04/07/25 Selena Mcfadden, [facility] Community Health Worker 05/25/2505/26 Red De Los Santos CERTIFIED HOME HEALTH AIDE Lead Outside Plant Engineer Primary Care - CC 05/26/25 Santa Menon, PA-C [address] [place] [address] Physician Design Assistant Physical Medicine and Rehabilitation 02/25/25 Alessandra Pereira, RN Specialty Outside Plant Engineer Neurological Surgery 06/02/25 documented as of this encounter
--- OUTSIDE RECORDS SUMMARY | 2025-07-07 18:16 | XMS_ITS | Encounter Summary ---
Author Organization [facility] Address [address] [place] [address] Care Team Providers Care Book Cleaner Name Role Phone Winston Villatoro OD Unavailable [phone] Denise Woodson APRN SENIOR CONTROLS ENGINEER Unavailable +[phone] Denise Woodosn APRN SENIOR CONTROLS ENGINEER Primary Care Provider Usha Simon APRN SENIOR CONTROLS ENGINEER Unavailable + [phone] Dangelo Salinas MD Unavailable Anastasia Stearns RN Unavailable [phone] Germaine Aleman CHW Unavailable +[phone] Joya Lira RP Unavailable Joya Lira RP Unavailable Fabi Coates MD Unavailable [phone] Danna CardenasC Unavailable +[phone] SinanselmoledyArthur MANAGER EMS Unavailable +[phone] Randy Maradiaga DO Unavailable + Tete Wang MD Unavailable +[phone] Dahlia Joyce MD Unavailable +[phone] Lisa Zambrano MD Unavailable + [phone] Tete Wang MD Unavailable +[phone] Any Joiner MD Unavailable +[phone] Bindu Bueno OD Unavailable +[phone] Aftab Finn MD Unavailable Randy Maradiaga DO Primary Care Prov ider Aftab Finn MD Unavailable Selena Mcfadden CHW Unavailable [phone] Denise Woosdon APRN SENIOR CONTROLS ENGINEER Primary Care Provider LesterRed diaz CLIENT SUPPORT ADMINISTRATOR Unavailable [phone] Santa Menon PA-C Unavailable [phone] Alessandra Pereira RN Unavailable Reason for Visit * Reason Onset Date Comments Forms 10/14/2024 Return to Work Encounter Details Date Type Department Care Team (Late st Contact Info) Description 10/14/2024 MyC Medical Advice [facility] [address] [place] [address] Denise Woodson APRN [facility] [id number] [place] [address] Forms (Return to Work) Social History [...] Never 09/16/2024 How often do you attend hoahaoism or faith serv ices? 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 Qing Copeland Lead Tire Builder [facility] Phoebe Velasquez IC MANAGER * Telephone Encounter - Qing Valentine - 10/15/2024 7:00 AM CST Forms/Letter Request Type of form/letter: OTHER: Return to Work Do we have the form/letter: Yes: [facility] Return to Work/Workability Who is the form from? Patient Where did/will the form come from? form was sent via [facility] When is form/letter needed by: FIFI How would you like the form/letter returned: [facility] Patient Notified form requests are processed in 5-7 business days:N/A Could we send this information to you in [facility] or would you prefer to receive a phone call?: Patient would like to be contacted via [facility] Placed form in provider's basket for review and signature Qing Copeland Lead Tire Builder [facility] Phoebe Velasquez IC MANAGER documented in this encounter Plan of Treatment Upcoming Encounters Date Type Department Care Team (Late st Contact Info) Description 07/09/2025 11:00 AM CDT Virtual Visit [address] [phone] BuenoBindu, OD [address]09 [place], [place] [address] Rubi Johnson, OT [address] [id number] 07/15/2025 2:30 PM CDT Office Visit [facility] [address] [place] [phone] Denise Woodson, BARRERA SENIOR CONTROLS ENGINEER [address] [place], [place] 1528168 07/16/2025 11:00 AM CDT Virtual Visit [address] [phone] MylesBindu, OD [address] [place], [place] [address] Rubi Johnson, OT [address] [address] 07/23/2025 11:00 AM CLINIC MANAGER Virtual Visit [address] [phone] MylesBindu, OD 909 [place], [place] [address] Rubi Johnson, OT [address] [address] 08/03/2025 11:00 AM CLINIC MANAGER Virtual Visit [address] [phone] Bindu Bueno, OD 909 [place] [address] Rubi Johnson, OT [address] [address] 08/03/2025 4:30 PM CLINIC MANAGER Virtual Visit [facility] [address] [phone] Any Joiner MD [address] [place] [address] 836945 08/17/2025 12:45 PM CLINIC MANAGER Virtual Visit [address] [phone] Bindu Bueno, OD 909 [place] [address] Rubi Johnson, OT [address] [address] 10/04/2025 10:15 AM CLINIC MANAGER Virtual Visit [facility] [address] [phone] Santa Menon PANilesC [address] [place] [address] 531025 01/19/2026 11:30 AM CDT Office Visit [facility] [address] [place] [address] Randy Maradiaga DO [address] [place] [address] documented as of this encounter Visit Diagnoses Not on filedocumented in this encounter Additional Health Concerns Infection Onset Date Last Indicated Resolved Time Rule Out COVID-19 11/14/2024 11/14/2024 11/14/2024 8:25 PM CLINIC MANAGER Assessment Noted Time PHQ-9 Depression Total Score: 0 09/18/19 12:46 PM CLINIC MANAGER documented as of this encounter Care Teams Book Cleaner Relationship Specialty Start Date End Date Winston Villatoro OD [facility] [place] [address] [facility] [address] [place] [address] PCP - Ophthalmology Ophthalmology 02/11/13 Denise Woodson APRN SENIOR CONTROLS ENGINEER [address] [place] [address] PCP - General Family Practice 09/21/20 04/07/25 Randy Maradiaga DO [address] [place] [address] PCP - General Neurology 04/08/25 05/25/25 Denise Woodson APRN SENIOR CONTROLS ENGINEER [address] [place] [address] PCP - General Family Practice 05/26/25 Denise Woodson APRN SENIOR CONTROLS ENGINEER [address] [place] [address] Assigned PCP 07/17/20 Usha Simon APRN SENIOR CONTROLS ENGINEER [address] [place] [address] [id number] [place] [address] Nurse Practitioner Neurological Surgery 01/24/24 Dangelo Salinas MD [address] [facility] [address] [place] [address] Neurology 01/27/24 Anastasia Stearns, RN Lead [employer] Wireman 02/06/24 12/17/24 Germaine Aleman, W Community Health Worker Primary Care - CC 02/18/2412/17/24 Joya Lira Joleen [address] [place] [address] Pharmacist Pharmacist 05/25/24 Joya Lira [facility] [address] [place] [address] Assigned MTM Pharmacist 06/08/24 Fabi Coates MD [address] [place] [address] 75 [place] [address] Genetics, Clinical 06/18/24 Danna Cardenas PA-C [address] [place] [address] Assigned Heart and Vascular Provider 07/08/24 12/05/24 Arthur Salas MANAGER EMS [address] [address] Assigned Behavioral Health Provider 08/08/24 Randy Maradiaga DO [address] [place] [address] Assigned Neuroscience Provider 08/08/24 Tete Wang MD [address] [place] [address] Genetics, Clinical 10/30/24 Dahlia Joyce MD [address] [place] [address] Radiology Neuroradiology 11/17/24 Lisa Zambrano MD [address] [place], [place] [phone] [place] [address] Assigned Heart and Vascular Provider 12/06/24 Tete Wang MD [address] [place] [address] Assigned Pediatric Specialist Provider 01/06/25 Any Joiner MD [address] [place] [address] 276 [place], [place] 703095 Assigned Pulmonology Provider 02/05/25 Bindu Bueno, AMELIE [address] [place] [address] Assigned Surgical Provider 03/08/25 Aftab Finn MD [address] [phone] Dermatology 03/17/25 Aftab Finn MD 500 [place] [address] Assigned Dermatology Provider 04/07/25 Selena Mcfadden, LUKE Community Health Worker 05/25/2505/26 Red De Los Santos LSW Lead [employer] Wireman Primary Care - CC 05/26/25 Santa Menon, PA-C 909 [place] [address] Physician Quality Assurance Physical Medicine and Rehabilitation 02/25/25 Alessandra Pereira, RN Specialty [employer] Wireman Neurological Surgery 06/02/25 documented as of this encounter
--- OUTSIDE RECORDS SUMMARY | 2025-07-07 18:17 | XMS_ITS | Encounter Summary ---
Author Organization [facility] Address [address] [place] [address] Care Team Providers Care Stud Driver Name Role Phone Timmy Perez MD Unavailable Unavailable Yung Madrigal MD Unavailable Unavailable Winston Villatoro OD Unavailable [phone] Apple Sykes MD Primary Care Provider Unavailab Westley Vera MD Unavailable [phone] [facility]less[facility] cardenas APRN FRANCHISE DEVELOPMENT MANAGER Primary Car e Provider Dada SerumClara MD Primary Care Provider Dada SerumClara MD Unavailable Dada SerumClara MD Unavailable Denise Woodson APRN FRANCHISE DEVELOPMENT MANAGER Unavailable [phone] Denise Woodson APRN FRANCHISE DEVELOPMENT MANAGER Primary Care Provider Usha Simon APRN FRANCHISE DEVELOPMENT MANAGER Unavailable + [phone] Dangelo Salinas MD Unavailable Usha Simon MEAL ROOM HAND FRANCHISE DEVELOPMENT MANAGER Unavailable + [phone] Anastasia Stearns RN Unavailable [phone] Germaine Aleman CHW Unavailable [phone] Robin Zepeda MD Unavailable +[phone] Lisa Zambrano MD Unavailable + [phone] Raul Hoyos MD Unavailable SorayaKeilaJoya RP Unavailable [phone] Joya Lira [facility] Unavailable [phone] Fabi Coates MD Unavailable [phone] Robin Zepeda MD Unavailable +[phone] Danna Cardenas PA-C Unavailable [phone] Felicita Desai RN Unavailable Unavailab gabino Arthur Salas CIRCULAR SAW EDGE FUSER Unavailable +[phone] Randy Maradiaga DO Unavailable + Tete Wang MD Unavailable +[phone] Dahlia Joyce MD Unavailable [phone] Lisa Zambrano MD Unavailable + [phone] Tete Wang MD Unavailable +[phone] Any Joiner MD Unavailable [phone] Myles Bindu OD Unavailable [phone] Aftab Finn MD Unavailable Randy Maradiaga DO Primary Care Prov ider Aftab Finn MD Unavailable Selena Mcfadden CHW Unavailable [phone] Denise Woodson APRN FRANCHISE DEVELOPMENT MANAGER Primary Care Provider Red De Los Santos STONE DRILLER Unavailable [phone] Santa Menon PA-C Unavailable [phone] Alessandra Pereira RN Unavailable Encounter Details Date Type Department Care Team (Late st Contact Info) Description 05/26/2013 MyC Medical Advice [facility] [address] [place] [address] Yung Madrigal MD RETIRED Social History Tobacco Use Types Packs/Day Years Used Date Smoking Tobacco: Never Smokeless Tobacco: Never Alcohol Use Standard Drinks/Week Comments Yes 0 (1 standard drink = 0.6 oz pur e alcohol) minimal Comments No Sex and Gender Information Value Date Recorded Sex Assigned at Not on file Legal Sex Female 4:05 AM FORKLIFT SUPERVISOR Gender Identity Not on file Sexual Orientation Not on file 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 documented as of this encounter Plan of Treatment Upcoming Encounters Date Type Department Care Team (Late st Contact Info) Description 07/09/2025 11:00 AM CDT Virtual Visit [address] [phone] Bindu Bueno, OD 909 [place], [place] [phone] Rubi Johnson, OT [address] 916957 07/15/2025 2:30 PM CDT Office Visit [facility] [address] [place] [address] Denise Woodson, MEAL ROOM HAND FRANCHISE DEVELOPMENT MANAGER [address] [place], [place] 1189368 07/16/2025 11:00 AM CDT Virtual Visit [address] [phone] BuenoMagaliBindu, OD 909 [place], [place] 3279[address] Rubi Johnson, OT [address] [phone] 07/23/2025 11:00 AM FORKLIFT SUPERVISOR Virtual Visit [address] [phone] Bindu Bueno, OD 909 [place] [address] Rubi Johnson, OT [address] 781247 08/03/2025 11:00 AM FORKLIFT SUPERVISOR Virtual Visit [address] [phone] Bindu Bueno, OD [address] [place] [address] 879325 Rubi Johnson, OT [address] [address] 08/03/2025 4:30 PM FORKLIFT SUPERVISOR Virtual Visit [facility] [address] [phone] Any Joiner MD [address] [place] [address] 101635 08/17/2025 12:45 PM FORKLIFT SUPERVISOR Virtual Visit [address] [phone] Bindu Bueno, OD 909 [place], [place] 896085 Rubi Johnson, OT [address] 815977 10/04/2025 10:15 AM FORKLIFT SUPERVISOR Virtual Visit [facility] [address] [address] Santa Menon, PANilesC [address] [place] [address] 500065 01/19/2026 11:30 AM CDT Office Visit [facility] Neurology Clinic [address] [phone] Randy Maradiaga DO [address] [place] [address] documented as of this encounter Visit Diagnoses Not on filedocumented in this encounter Additional Health Concerns Infection Onset Date Last Indicated Resolved Time Rule Out COVID-19 09/13/2024 09/13/2024 09/13/2024 12:31 PM FORKLIFT SUPERVISOR Rule Out COVID-19 11/14/2024 11/14/2024 11/14/2024 8:25 PM FORKLIFT SUPERVISOR documented as of this encounter Care Teams Stud Driver Relationship Specialty Start Date End Date Timmy Perez MD PCP - Obstetrics/Gynecology 03/02/08 08/07/15 Yung Madrigal MD RETIRED PCP - Orthopaedics Orthopedics 08/26/12 01/20/24 Winston Villatoro OD [facility] [place] [address] [place] [address] PCP - Ophthalmology Ophthalmology 02/11/13 Apple Sykes MD [facility] [place] [address] [place] [address] PCP - General Family Practice 05/04/13 10/25/16 Westley Bates MD XXX RETIRED XXX [address] [place] [address] PCP - ENT Otolaryngology 05/14/13 07/28/18 Alessandra Cabrales APRN FRANCHISE DEVELOPMENT MANAGER [address] [facility] [place] [address] PCP - General Nurse Practitioner 10/26/16 02/06/17 Clara Jara MD [facility] [place] [address] PCP - General Internal Medicine 02/07/17 09/20/20 Clara Jara MD 8675 [place] [address] PCP - Assigned PCP 01/17/17 11/18/18 Denise Woodson APRN FRANCHISE DEVELOPMENT MANAGER [address] [place] [address] PCP - General Family Practice 09/21/20 04/07/25 Randy Maradiaga DO 9 [place] [address] PCP - General Neurology 04/08/25 05/25/25 Denise Woodson APRN FRANCHISE DEVELOPMENT MANAGER [address] [place] [address] PCP - General Family Practice 05/26/25 Clara Jara MD 8675 [place] [address] Assigned PCP 01/17/17 07/16/20 Denise Woodson APRN FRANCHISE DEVELOPMENT MANAGER [address] [facility] [address] Assigned PCP 07/17/20 Usha Simon APRN FRANCHISE DEVELOPMENT MANAGER [address] [address] Nurse Practitioner Neurological Surgery 01/24/24 Dangelo Salinas MD [address] [place] [address] Neurology 01/27/24 Usha Simon APRN FRANCHISE DEVELOPMENT MANAGER [address] [place] [address] Assigned Neuroscience Provider 02/06/24 03/07/24 Anastasia Stearns, RN Lead Jute Bag Cutting Machine Operator 02/06/24 12/17/24 Germaine Aleman, W Community Health Worker Primary Care - CC 02/18/24 12/17/24 Robin Zepeda MD [address] [address] Assigned Neuroscience Provider 03/08/24 05/07/24 Lisa Zambrano MD [address] [place] [address] Assigned Heart and Vascular Provider 05/08/24 07/07/24 Raul Hoyos MD [address] [address] Assigned Neuroscience Provider 05/08/24 07/07/24 Joya Lira [facility] [address] [place] [address] Pharmacist Pharmacist 05/25/24 Joya Lira [facility] [address] [place], [place] [address] Assigned MTM Pharmacist 06/08/24 Fabi Coates MD [address] [place] [address] 75 [place] [address] Genetics, Clinical 06/18/24 Robin Zepeda MD [address] [place], [place] [address] [place] [address] Assigned Neuroscience Provider 07/08/24 08/07/24 Danna Cardenas PA-C [address] [place] [address] Assigned Heart and Vascular Provider 07/08/24 12/05/24 Felicita Desai RN Lead Jute Bag Cutting Machine Operator 07/14/24 07/28/24 Arthur Salas, [facility] [address] [address] Assigned Behavioral Health Provider 08/08/24 Randy Maradiaga DO [address] [place] [address] Assigned Neuroscience Provider 08/08/24 Tete Wang MD [address] [place] [address] Genetics, Clinical 10/30/24 Dahlia Joyce MD [address] [place] [address] Radiology Neuroradiology 11/17/24 [place] [address] [place] [address] [place] [address] 180815 Assigned Heart and Vascular Provider 12/06/24 Tete Wang MD [address] [place] [address] Assigned Pediatric Specialist Provider 01/06/25 Any Joiner MD [address] [place] [address] 664925 Assigned Pulmonology Provider 02/05/25 Bindu Bueno OD 909 [place], [place] 529745 Assigned Surgical Provider 03/08/25 Aftab Finn MD [address] [address] Dermatology 03/17/25 Aftab Finn MD [address] [place] [address] 273055 Assigned Dermatology Provider 04/07/25 Selena Mcfadden, [place] Community Health Worker 05/25/25 05/26/25 Red De Los Santos STONE DRILLER Lead Jute Bag Cutting Machine Operator Primary Care - CC 05/26/25 Santa Menon PA-C [address] [place] [address] Physician Investment Broker Physical Medicine and Rehabilitation 02/25/25 Alessandra Pereira RN Specialty Jute Bag Cutting Machine Operator Neurological Surgery 06/02/25 documented as of this encounter
--- OUTSIDE RECORDS SUMMARY | 2025-07-07 18:17 | XMS_ITS | Encounter Summary ---
Author Organization [place] Address [address] [place] [address] Care Team Providers Care Plastic Surgeon Name Role Phone Timmy Perez MD Unavailable Unavailable Yung Madrigal MD Unavailable Unavailable Winston Villatoro OD Unavailable +[phone] Apple Sykes MD Primary Care Provider Unavailab Westley Vera MD Unavailable [phone] [facility] CenterRicoAlessandra cardenas APRN BASEBALL WINDER Primary Car e Provider Dada SerumClara MD Primary Care Provider Dada SerumClara MD Unavailable Dada SerumClara MD Unavailable Denise Woodson APRN BASEBALL WINDER Unavailable +[phone] Denise Woodson APRN BASEBALL WINDER Primary Care Provider Usha Simon APRN BASEBALL WINDER Unavailable + [phone] Dangelo Salinas MD Unavailable Usha Simon SUPERVISOR TANK CLEANING BASEBALL WINDER Unavailable + [phone] Anastasia Stearns RN Unavailable +[phone] Germaine Aleman CHW Unavailable +[phone] Robin Zepeda MD Unavailable +[phone] Lisa Zambrano MD Unavailable + [phone] Raul Hoyos MD Unavailable SorayaKeilaJoya RP Unavailable +[phone] Joya Lira [facility] Unavailable +[phone] Fabi Coates MD Unavailable +[phone] Robin Zepeda MD Unavailable +- [phone] Danna Cardenas PA-C Unavailable +[phone] Felicita Desai RN Unavailable Unavailab gabino Arthur Salas TROMPER Unavailable +[phone] Randy Maradiaga DO Unavailable + Tete Wang MD Unavailable +[phone] Dahlia Joyce MD Unavailable +[phone] Lisa Zambrano MD Unavailable + [phone] Tete Wang MD Unavailable +[phone] Any Joiner MD Unavailable +[phone] Myles Bindu OD Unavailable [phone] Aftab Finn MD Unavailable Randy Maradiaga DO Primary Care Prov ider Aftab Finn MD Unavailable Selena Mcfadden CHW Unavailable [phone] Denise Woodson APRN BASEBALL WINDER Primary Care Provider Red De Los Santos MEDICAL CHEMIST Unavailable [phone] Santa Menon PA-C Unavailable +[phone] Alessandra Pereira RN Unavailable Encounter Details Date Type Department Care Team (Late st Contact Info) Description 05/19/2013 MyC Medical Advice [facility] Orthopedics [address] [place] [address] Yung Madrigal MD RETIRED Social History Tobacco Use Types Packs/Day Years Used Date Smoking Tobacco: Never Smokeless Tobacco: Never Alcohol Use Standard Drinks/Week Comments Yes 0 (1 standard drink = 0.6 oz pur e alcohol) minimal Comments No Sex and Gender Information Value Date Recorded Sex Assigned at Not on file Legal Sex Female 4:05 AM BENCH ASSEMBLER BATTERY Gender Identity Not on file Sexual Orientation Not on file 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 documented as of this encounter Plan of Treatment Upcoming Encounters Date Type Department Care Team (Late st Contact Info) Description 07/09/2025 11:00 AM CDT Virtual Visit [address] [phone] Bindu Bueno, OD [address] [place], [place] [phone] Rubi Johnson, OT [address] 524407 07/15/2025 2:30 PM CDT Office Visit [facility] [address] [place] [address] Denise Woodson, SUPERVISOR TANK CLEANING BASEBALL WINDER [address] [place], [place] [id number] 07/16/2025 11:00 AM CDT Virtual Visit [address] [phone] BuenoMagaliBindu, OD [address] [place], [place] 194395 Rubi Johnson, OT [address] [id number] 07/23/2025 11:00 AM BENCH ASSEMBLER BATTERY Virtual Visit [address] [phone] Bindu Bueno, OD [address]09 [place] [address] Rubi Johnson, OT [address] [id number] 08/03/2025 11:00 AM BENCH ASSEMBLER BATTERY Virtual Visit [address] [phone] Bindu Bueno, OD [address] [place] [address] 024595 Rubi Johnson, OT [address] [address] 08/03/2025 4:30 PM BENCH ASSEMBLER BATTERY Virtual Visit [facility] [address] [phone] Any Joiner MD [address] [place] [address] 945085 08/17/2025 12:45 PM BENCH ASSEMBLER BATTERY Virtual Visit [address] [phone] Bindu Bueno, OD [address] [place], [place] 24[address] Rubi Johnson, OT [address] [id number] 10/04/2025 10:15 AM BENCH ASSEMBLER BATTERY Virtual Visit [facility] [address] [address] Santa Menon, PANilesC [address] [place] [address] 102425 01/19/2026 11:30 AM CDT Office Visit [facility] Neurology Clinic [address] [phone] Randy Maradiaga DO [address] [place] [address] documented as of this encounter Visit Diagnoses Not on filedocumented in this encounter Additional Health Concerns Infection Onset Date Last Indicated Resolved Time Rule Out COVID-19 09/13/2024 09/13/2024 09/13/2024 12:31 PM BENCH ASSEMBLER BATTERY Rule Out COVID-19 11/14/2024 11/14/2024 11/14/2024 8:25 PM BENCH ASSEMBLER BATTERY documented as of this encounter Care Teams Plastic Surgeon Relationship Specialty Start Date End Date Timmy Perez MD PCP - Obstetrics/Gynecology 03/02/08 08/07/15 Yung Madrigal MD RETIRED PCP - Orthopaedics Orthopedics 08/26/12 01/20/24 Winston Villatoro OD [facility] [place] [address] [place] [address] PCP - Ophthalmology Ophthalmology 02/11/13 Apple Sykes MD [facility] [place] [address] [place] [address] PCP - General Family Practice 05/04/13 10/25/16 Westley Bates MD XXX RETIRED XXX [address] [place] [address] PCP - ENT Otolaryngology 05/14/13 07/28/18 Alessandra Cabrales APRN BASEBALL WINDER [address] [facility] [place] [place] [address] PCP - General Nurse Practitioner 10/26/16 02/06/17 Clara Jara MD [facility] [place] [address] PCP - General Internal Medicine 02/07/17 09/20/20 Clara Jara MD [address] [place] [address] PCP - Assigned PCP 01/17/17 11/18/18 Denise Woodson APRN BASEBALL WINDER [address] [place] [address] PCP - General Family Practice 09/21/20 04/07/25 Randy Maradiaga DO 9 [place] [address] PCP - General Neurology 04/08/25 05/25/25 Denise Woodson APRN BASEBALL WINDER [address] [place] [address] PCP - General Family Practice 05/26/25 Clara Jara MD [address] [place] [address] Assigned PCP 01/17/17 07/16/20 Denise Woodson APRN BASEBALL WINDER [address] [place] [address] Assigned PCP 07/17/20 Usha Simon APRN BASEBALL WINDER [address] [address] Nurse Practitioner Neurological Surgery 01/24/24 Dangelo Salinas MD [address] [place] [address] Neurology 01/27/24 Usha Simon APRN BASEBALL WINDER [address] [place] [address] Assigned Neuroscience Provider 02/06/24 03/07/24 Anastasia Stearns, RN Lead Organizational Psychologist 02/06/24 12/17/24 Germaine Alemna, W Community Health Worker Primary Care - CC 02/18/24 12/17/24 Robin Zepeda MD [address] [address] Assigned Neuroscience Provider 03/08/24 05/07/24 Lisa Zambrano MD [address] [place] [address] Assigned Heart and Vascular Provider 05/08/24 07/07/24 Raul Hoyos MD [address] [address] Assigned Neuroscience Provider 05/08/24 07/07/24 Joya Lira [facility] [address] [place] [address] Pharmacist Pharmacist 05/25/24 Joya Lira [facility] [address] [place] [address] Assigned MTM Pharmacist 06/08/24 Fabi Coates MD [address] [place] [address] 75 [place] [address] Genetics, Clinical 06/18/24 Robin Zepeda MD [address] [place] [address] [address] Assigned Neuroscience Provider 07/08/24 08/07/24 Danna Cardenas PA-C [address] [place] [address] Assigned Heart and Vascular Provider 07/08/24 12/05/24 Felicita Desai RN Lead Organizational Psychologist 07/14/24 07/28/24 Arthur Salas, [facility] [address] [address] Assigned Behavioral Health Provider 08/08/24 Randy Maradiaga DO [address] [place] [address] Assigned Neuroscience Provider 08/08/24 Tete Wang MD [address] [place] [address] Genetics, Clinical 10/30/24 Dahlia Joyce MD [address] [place] [address] Radiology Neuroradiology 11/17/24 [place] [address] [place] [address] [place] [address] 212295 Assigned Heart and Vascular Provider 12/06/24 Tete Wang MD [address] [place] [address] Assigned Pediatric Specialist Provider 01/06/25 Any Joiner MD [address] [place] [address] 958025 Assigned Pulmonology Provider 02/05/25 Bindu Bueno OD [address] [place], [place] 434715 Assigned Surgical Provider 03/08/25 Aftab Finn MD [address] [address] Dermatology 03/17/25 Aftab Finn MD [address] [place] [address] 586145 Assigned Dermatology Provider 04/07/25 Selena Mcfadden, [place] Community Health Worker 05/25/25 05/26/25 Red De Los Santos MEDICAL CHEMIST Lead Organizational Psychologist Primary Care - CC 05/26/25 Santa Menon PA-C [address] [place] [address] Physician Automotive Fleet Supervisor Physical Medicine and Rehabilitation 02/25/25 Alessandra Pereira RN Specialty Organizational Psychologist Neurological Surgery 06/02/25 documented as of this encounter
--- OUTSIDE RECORDS SUMMARY | 2025-07-07 18:17 | XMS_ITS | Encounter Summary ---
Author Organization [place] Address [address] [place] [address] Care Team Providers Care Manager Hospice Name Role Phone Yung Madrigal MD Unavailable Unavailable Winston Villatoro OD Unavailable [phone] Dada SerumClara MD Primary Care Provider Dada SerumClara MD Unavailable Denise Woodson APRN LONG TERM CARE PHARMACIST Unavailable [phone] Denise Woodson APRN LONG TERM CARE PHARMACIST Primary Care Provider Usha Simon APRN LONG TERM CARE PHARMACIST Unavailable + [phone] Dangelo Salinas MD Unavailable Usha Simon DENTURES LAB TECHNICIAN LONG TERM CARE PHARMACIST Unavailable + [phone] Anastasia Stearns RN Unavailable +[phone] Germaine Aleman CHW Unavailable +[phone] Robin Zepeda MD Unavailable +[phone] Lisa Zambrano MD Unavailable Raul Hoyos MD Unavailable Joya Lira [facility] Unavailable +[phone] Joya Lira [facility] Unavailable +[phone] Fabi Coates MD Unavailable [phone] Robin Zepeda MD Unavailable [phone] Danna CardenasC Unavailable +[phone] Felicita Desai RN Unavailable Unavailab Arthur Rios Unavailable +[phone] Randy Maradiaga DO Unavailable + Tete Wang MD Unavailable +[phone] Dahlia Joyce MD Unavailable [phone] Lisa Zambrano MD Unavailable + [phone] Tete Wang MD Unavailable +[phone] Any Joiner MD Unavailable [phone] Myles Bindu OD Unavailable +[phone] Aftab Finn MD Unavailable Randy Maradiaga DO Primary Care Prov ider Aftab Finn MD Unavailable Selena Mcfadden CHW Unavailable [phone] Denise Woodson APRN LONG TERM CARE PHARMACIST Primary Care Provider Red De Los Santos PARTS CONTROL CLERK Unavailable [phone] Santa MenonC Unavailable [phone] Alessandra Pereira RN Unavailable Encounter Details Date Type Department Care Team (Late st Contact Info) Description 01/21/2019 [facility] [address] [place] [address] Phoebe Del Cid Social History [...] file Legal Sex Female 4:05 AM PRIMARY HEALTH CARE NURSE Gender Identity Not on file Sexual Orientation Not on file 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 Not on file Not on file Not on file Not on file Not on file Not on file documented as of this encounter Plan of Treatment Upcoming Encounters Date Type Department Care Team (Late st Contact Info) Description 07/09/2025 11:00 AM CDT Virtual Visit [address] [phone] Bindu Bueno, OD 909 [place], [place] 484[address] Rubi Johnson, OT [address] 615[address] 07/15/2025 2:30 PM CDT Office Visit [facility] [address] [place] [phone] Denise Woodson, [facility] [address] [place], [place] 424[address] 07/16/2025 11:00 AM CDT Virtual Visit [address] [phone] Bindu Bueno, OD [address] [place], [place] 8[address] Rubi Johnson, OT [address] 483017 07/23/2025 11:00 AM PRIMARY HEALTH CARE NURSE Virtual Visit [address] [phone] Bindu Bueno, OD [address]09 [place] [address] Rubi Johnson, OT [address] [address] 08/03/2025 11:00 AM PRIMARY HEALTH CARE NURSE Virtual Visit [address] [phone] Bindu Bueno, OD [address] [place], [place] 0825[address] Rubi Johnson, OT [address] [address] 08/03/2025 4:30 PM PRIMARY HEALTH CARE NURSE Virtual Visit [facility] [address] [phone] Any Joiner MD [address] 356185 08/17/2025 12:45 PM PRIMARY HEALTH CARE NURSE Virtual Visit [address] [phone] BuenoMagaliBindu, OD 909 [place] [address] Rubi Johnson, OT [address] 980517 10/04/2025 10:15 AM PRIMARY HEALTH CARE NURSE Virtual Visit [facility] [address] 3rd [place] [phone] Santa Menon H[place] [address] [place] [address] 01/19/2026 11:30 AM CDT Office Visit [facility] Neurology [address] [place] [phone] Randy Maradiaga DO [address] [place] [address] documented as of this encounter Visit Diagnoses Not on filedocumented in this encounter Additional Health Concerns Infection Onset Date Last Indicated Resolved Time Rule Out COVID-19 09/13/2024 09/13/2024 09/13/2024 12:31 PM PRIMARY HEALTH CARE NURSE Rule Out COVID-19 11/14/2024 11/14/2024 11/14/2024 8:25 PM PRIMARY HEALTH CARE NURSE Assessment Noted Time PHQ-9 Depression Total Score: 0 02/09/20 17 7:29 AM CDT documented as of this encounter Care Teams Manager Hospice Relationship Specialty Start Date End Date Yung Madrigal MD RETIRED PCP - Orthopaedics Orthopedics 08/26/12 01/20/24 Winston Villatoro OD [facility] [address] [place] [address] PCP - Ophthalmology Ophthalmology 02/11/13 Clara Jara MD [facility] [address] [place] [address] PCP - General Internal Medicine 02/07/17 09/20/20 Denise Woodson APRN LONG TERM CARE PHARMACIST [address] [place] [address] PCP - General Family Practice 09/21/20 04/07/25 Randy Maradiaga DO 909 [place] [address] PCP - General Neurology 04/08/25 05/25/25 Denise Woodson APRN LONG TERM CARE PHARMACIST [address] [place] [address] PCP - General Family Practice 05/26/25 Clara Jara MD [address]75 [place] [address] Assigned PCP 01/17/17 07/16/20 Denise Woodson APRN LONG TERM CARE PHARMACIST [address] [place] [address] Assigned PCP 07/17/20 Usha Simon APRN LONG TERM CARE PHARMACIST [address] [address] Nurse Practitioner Neurological Surgery 01/24/24 [place] [address] [place] [address] Neurology 01/27/24 Usha Simon APRN LONG TERM CARE PHARMACIST [address] [address] Assigned Neuroscience Provider 02/06/24 03/07/24 Anastasia Stearns, RN Lead Punching Machine Operator 02/06/24 12/17/24 Germaine Aleman, CHW Community Health Worker Primary Care - CC 02/18/2412/17/24 Robin Zepeda MD [address] [place] [id number] [place] [address] Assigned Neuroscience Provider 03/08/24 05/07/24 Lisa Zambrano MD [address] [facility] [address] [place] [address] Assigned Heart and Vascular Provider 05/08/24 07/07/24 Raul Hoyos MD [address] [address] Assigned Neuroscience Provider 05/08/24 07/07/24 Joya Lira Joleen [address] [place] [address] Pharmacist Pharmacist 05/25/24 Joya Lira [facility] [address] [place] [address] Assigned MTM Pharmacist 06/08/24 Fabi Coates MD [address] [facility] 75 [place] [address] Genetics, Clinical 06/18/24 Robin Zepeda MD [address] [address] Assigned Neuroscience Provider 07/08/24 08/07/24 Danna Cardenas PA-C [address] [place] [address] Assigned Heart and Vascular Provider 07/08/24 12/05/24 Felicita Desai, RN Lead Punching Machine Operator 07/14/24 07/28/24 Arthur Salas [facility] [address] [place] [address] Assigned Behavioral Health Provider 08/08/24 Randy Maradiaga DO [address] [place] [address] Assigned Neuroscience Provider 08/08/24 Tete Wang MD [address] [place] [address] 165354 Genetics, Clinical 10/30/24 Dahlia Joyce MD [address] [place] [address] 257885 Radiology Neuroradiology 11/17/24 Lisa Zambrano MD [address] [place] [address] Assigned Heart and Vascular Provider 12/06/24 Tete Wang MD [address] [place] [address] 931074 Assigned Pediatric Specialist Provider 01/06/25 Any Joiner MD [address] [place] [address] 940115 Assigned Pulmonology Provider 02/05/25 Bindu Bueno OD [address] [place] [address] 096035 Assigned Surgical Provider 03/08/25 Aftab Finn MD [address] 1929[address] Dermatology 03/17/25 Aftab Finn MD [address] [place] [address] Assigned Dermatology Provider 04/07/25 Selena Mcfadden, [facility] Community Health Worker 05/25/2505/26 Red De Los Santos LSW Lead Punching Machine Operator Primary Care - CC 05/26/25 Santa Menon, PA-C [address] [place] [address] 706895 Physician [place] Physical Medicine and Rehabilitation 02/25/25 Alessandra Pereira, RN Specialty Punching Machine Operator Neurological Surgery 06/02/25 documented as of this encounter
--- OUTSIDE RECORDS SUMMARY | 2025-07-07 18:17 | XMS_ITS | Encounter Summary ---
Author Organization [place] Address [address] [place] [address] Care Team Providers Care Cascara Bark Cutter Name Role Phone Timmy Perez MD Unavailable Unavailable Yung Madrigal MD Unavailable Unavailable Winston Villatoro OD Unavailable [phone] Apple Sykes MD Primary Care Provider Unavailab Westley Vera MD Unavailable [phone] [facility] Hospital[facility]ico[facility]lessandra cardenas APRN [place] MACHINE OPERATOR Primary Car e Provider Dada SerumClara MD Primary Care Provider Dada SerumClara MD Unavailable Dada SerumClara MD Unavailable Denise Woodson APRN [place] MACHINE OPERATOR Unavailable [phone] Denise Woodson APRN [place] MACHINE OPERATOR Primary Care Provider Usha Simon APRN [place] MACHINE OPERATOR Unavailable + [phone] Dangelo Salinas MD Unavailable Usha Simon HYDRAULIC PILE HAMMER OPERATOR [place] MACHINE OPERATOR Unavailable + [phone] Anastasia Stearns RN Unavailable +[phone] Germaine Aleman CHW Unavailable +[phone] Robin Zepeda MD Unavailable +[phone] Lisa Zambrano MD Unavailable + [phone] Raul Hoyos MD Unavailable +[phone] SorayaKeilaJoya [facility] Unavailable +[phone] Joya Lira [facility] Unavailable +[phone] Fabi Coates MD Unavailable Robin Zepeda MD Unavailable +[phone] Danna Cardenas PA-C Unavailable +[phone] Felicita Desai RN Unavailable Unavailab gabino Arthur Salas PHOTORESIST CONTACT PRINTER Unavailable +[phone] Randy Maradiaga DO Unavailable + Tete Wang MD Unavailable +[phone] Dahlia Joyce MD Unavailable +[phone] Lisa Zambrano MD Unavailable + [phone] Tete Wang MD Unavailable +[phone] Any Joiner MD Unavailable +[phone] Myles Bindu OD Unavailable +[phone] Aftab Finn MD Unavailable Randy Maradiaga DO Primary Care Prov ider Aftab Finn MD Unavailable Selena Mcfadden CHW Unavailable [phone] Denise Woodson APRN [place] MACHINE OPERATOR Primary Care Provider Red De Los Santos HEEL COVER SPLITTER Unavailable [phone] Santa Menon PA-C Unavailable +[phone] Alessandra Pereira RN Unavailable Encounter Details Date Type Department Care Team (Late st Contact Info) Description 05/06/2013 MyC Medical Advice [facility] in [facility] [address] [place] [address] Apple Sykes MD Social History Tobacco Use Types Packs/Day Years Used Date Smoking Tobacco: Never Smokeless Tobacco: Never Alcohol Use Standard Drinks/Week Comments Yes 0 (1 standard drink = 0.6 oz pur e alcohol) minimal Comments No Sex and Gender Information Value Date Recorded Sex Assigned at Not on file Legal Sex Female 4:05 AM TINWARE LITHOGRAPH PRESS OPERATOR Gender Identity Not on file Sexual Orientation Not on file 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 documented as of this encounter Plan of Treatment Upcoming Encounters Date Type Department Care Team (Late st Contact Info) Description 07/09/2025 11:00 AM CDT Virtual Visit [address] [phone] Bindu Bueno, OD [address]09 [place], [place] 742075 Rubi Johnson, OT [address] [address] 07/15/2025 2:30 PM CDT Office Visit [facility] [address] [place] [address] Denise Woodson APRN [facility] [address] [place] [address] 07/16/2025 11:00 AM CDT Virtual Visit [address] [phone] Bindu Bueno, OD [address] [place], [place] [phone] Rubi Johnson, OT [address] [id number] 07/23/2025 11:00 AM TINWARE LITHOGRAPH PRESS OPERATOR Virtual Visit [facility] [address] [place] [phone] Bindu Bueno, OD 909 [place] [address] Rubi Johnson, OT [address] [id number] 08/03/2025 11:00 AM TINWARE LITHOGRAPH PRESS OPERATOR Virtual Visit [address] [phone] Bindu Bueno, OD [address] [place] [address] 532325 Rubi Johnson, OT [address] [address] 08/03/2025 4:30 PM TINWARE LITHOGRAPH PRESS OPERATOR Virtual Visit [facility] [address] [phone] Any Joiner MD [address] [place] [address] 857065 08/17/2025 12:45 PM TINWARE LITHOGRAPH PRESS OPERATOR Virtual Visit [address] [phone] Bindu Bueno, OD [address] [place], [place] 276975 Rubi Johnson, OT [address] 089147 10/04/2025 10:15 AM TINWARE LITHOGRAPH PRESS OPERATOR Virtual Visit [facility] [address] [phone] Santa Menon, PA-C [address] [place] [address] 699555 01/19/2026 11:30 AM CDT Office Visit [facility] [address] [address] Randy Maradiaga DO [address] [place] [address] documented as of this encounter Visit Diagnoses Not on filedocumented in this encounter Additional Health Concerns Infection Onset Date Last Indicated Resolved Time Rule Out COVID-19 09/13/2024 09/13/2024 09/13/2024 12:31 PM TINWARE LITHOGRAPH PRESS OPERATOR Rule Out COVID-19 11/14/2024 11/14/2024 11/14/2024 8:25 PM TINWARE LITHOGRAPH PRESS OPERATOR documented as of this encounter Care Teams Cascara Bark Cutter Relationship Specialty Start Date End Date Timmy Perez MD PCP - Obstetrics/Gynecology 03/02/08 08/07/15 Yung Madrigal MD RETIRED PCP - Orthopaedics Orthopedics 08/26/12 01/20/24 Winston Villatoro OD [facility] [place] [address] [place] [address] PCP - Ophthalmology Ophthalmology 02/11/13 Apple Sykes MD [facility] [place] [address] [place] [address] PCP - General Family Practice 05/04/13 10/25/16 Westley Bates MD XXX RETIRED XXX [address] [facility] [address] [place] [address] PCP - ENT Otolaryngology 05/14/13 07/28/18 Alessandra Cabrales APRN [place]ING[place]Y MACHINE OPERATOR [address] [facility] [place] [address] PCP - General Nurse Practitioner 10/26/16 02/06/17 Clara Jara MD [address] [place] [address] [place] [address] PCP - General Internal Medicine 02/07/17 09/20/20 Clara Jara MD 8675 [place] [address] PCP - Assigned PCP 01/17/17 11/18/18 Denise Woodson APRN KINGSBURY MACHINE OPERATOR [address] [place] [address] PCP - General Family Practice 09/21/20 04/07/25 Randy Maradiaga DO [address] [place] [address] PCP - General Neurology 04/08/25 05/25/25 Denise Woodson APRN KING[place]URY MACHINE OPERATOR [address] [place] [address] PCP - General Family Practice 05/26/25 Clara Jara MD [address] [place] [address] Assigned PCP 01/17/17 07/16/20 Denise Woodson APRN KINGSBURY MACHINE OPERATOR [address] [place] [address] Assigned PCP 07/17/20 Usha Simon APRN [place]ING[place]Y MACHINE OPERATOR [address] [address] Nurse Practitioner Neurological Surgery 01/24/24 Dangelo Salinas MD [address] [place] [address] Neurology 01/27/24 Usha Simon APRN [place] MACHINE OPERATOR [address] [place] [address] Assigned Neuroscience Provider 02/06/24 03/07/24 Anastasia Stearns, RN Lead Store Assistant 02/06/24 12/17/24 Germaine Aleman, W Community Health Worker Primary Care - CC 02/18/24 12/17/24 Robin Zepeda MD [address] [place] [address] Assigned Neuroscience Provider 03/08/24 05/07/24 Lisa Zambrano MD [address] [place] [address] Assigned Heart and Vascular Provider 05/08/24 07/07/24 Raul Hoyos MD [address] [place] [address] Assigned Neuroscience Provider 05/08/24 07/07/24 Joya Lira [facility] [address] [place] [address] Pharmacist Pharmacist 05/25/24 Joya Lira [facility] [address] [place] [address] Assigned MTM Pharmacist 06/08/24 Fabi Coates MD [address] [place] [address] 75 [place], [place] [phone] Genetics, Clinical 06/18/24 Robin Zepeda MD [address] [place], [place] [address] [place], [place] 2932[address] Assigned Neuroscience Provider 07/08/24 08/07/24 Danna Cardenas PA-C [address] [place] [address] 436335 Assigned Heart and Vascular Provider 07/08/24 12/05/24 Felicita Desai RN Lead Store Assistant 07/14/24 07/28/24 Arthur Salas [facility] [address] [address] Assigned Behavioral Health Provider 08/08/24 Randy Maradiaga DO [address] [place] [address] 106025 Assigned Neuroscience Provider 08/08/24 Tete Wang MD [address] [place] [address] Genetics, Clinical 10/30/24 Dahlia Joyce MD [address] [place] [address] Radiology Neuroradiology 11/17/24 [place] [address] [place] [address] [place] [address] Assigned Heart and Vascular Provider 12/06/24 [place] [address] [place] [address] Assigned Pediatric Specialist Provider 01/06/25 Any Joiner MD [address] [place] [address] 276 [place] [address] Assigned Pulmonology Provider 02/05/25 Bindu Bueno OD [address] [place] [address] 991995 Assigned Surgical Provider 03/08/25 Aftab Finn MD [address] 777[address] Dermatology 03/17/25 Aftab Finn MD [address] [place] [address] 355915 Assigned Dermatology Provider 04/07/25 Selena Mcfadden, W Community Health Worker 05/25/25 05/26/25 Red De Los Santos LSW Lead Store Assistant Primary Care - CC 05/26/25 Santa Menon PA-C [address] [place] [address] Physician Prosthetic Technician Physical Medicine and Rehabilitation 02/25/25 Alessandra Pereira RN Specialty Store Assistant Neurological Surgery 06/02/25 documented as of this encounter
--- OUTSIDE RECORDS SUMMARY | 2025-07-07 18:17 | XMS_ITS | Encounter Summary ---
Author Organization [place] Address [address] [place] [address] Care Team Providers Care Sole Skiver Name Role Phone Timmy Perez MD Unavailable Unavailable Yung Madrigal MD Unavailable Unavailable Winston Villatoro OD Unavailable [phone] Apple Sykes MD Primary Care Provider Unavailab Westley Vera MD Unavailable [phone] [facility]Grand [facility] Hospital[facility]icoAlessandra cardenas APRN COMPACTOR DRIVER Primary Car e Provider Dada SerumClara MD Primary Care Provider Dada SerumClara MD Unavailable Dada SerumClara MD Unavailable Denise Woodson APRN COMPACTOR DRIVER Unavailable [phone] Denise Woodson APRN COMPACTOR DRIVER Primary Care Provider Usha Simon APRN COMPACTOR DRIVER Unavailable + [phone] Dangelo Salinas MD Unavailable Usha Simon APPLICATIONS PROGRAMMER ANALYST COMPACTOR DRIVER Unavailable + [phone] Anastasia Stearns RN Unavailable [phone] Germaine Aleman CHW Unavailable +[phone] Robin Zepeda MD Unavailable +[phone] Lisa Zambrano MD Unavailable + [phone] Raul Hoyos MD Unavailable [phone] SorayaThiJoya [facility] Unavailable +[phone] Soraya Joya [facility] Unavailable +[phone] Fabi Coates MD Unavailable [phone] Robin Zepeda MD Unavailable +[phone] Danna Cardenas PA-C Unavailable +[phone] Felicita Desai RN Unavailable Unavailab gabino Arthur Salas CLOTH NEUTRALIZER Unavailable +[phone] Randy Maradiaga DO Unavailable + Tete Wang MD Unavailable +[phone] Dahlia Joyce MD Unavailable [phone] Lisa Zambrano MD Unavailable + [phone] Tete Wang MD Unavailable +[phone] Any Joiner MD Unavailable +[phone] Myles Bindu OD Unavailable +[phone] Aftab Finn MD Unavailable Randy Maradiaga DO Primary Care Prov ider Aftab Finn MD Unavailable Selena Mcfadden CHW Unavailable [phone] Denise Woodson APRN COMPACTOR DRIVER Primary Care Provider Red De Los Santos GAMEMASTER Unavailable [phone] Santa Menon PA-C Unavailable +[phone] Alessandra Pereira RN Unavailable Reason for Visit * Reason Onset Date Comments MyChart Communication 05/30/2013 Encounter Details Date Type Department Care Team (Latest Contact Info) Description 05/30/2013 MyC Medical Advice [facility] in 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 documented as of this encounter Plan of Treatment Upcoming Encounters Date Type Department Care Team (Late st Contact Info) Description 07/09/2025 11:00 AM CDT Virtual Visit [address] [phone] Bindu Bueno, OD [address] [place], [place] [phone] Rubi Johnson, OT [facility] [address] [phone] 07/15/2025 2:30 PM CDT Office Visit [facility] [address] [place] [address] Denise Woodson APRN [facility] [address] [place] [address] 07/16/2025 11:00 AM CDT Virtual Visit [address] [phone] Bindu Bueno, OD [address] [place], [place] [phone] Rubi Johnson, OT [address] [phone] 07/23/2025 11:00 AM APRON OPERATOR Virtual Visit [address] [phone] Bindu Bueno, OD 909 [place], [place] 838485 Rubi Johnson, OT [address] 764807 08/03/2025 11:00 AM APRON OPERATOR Virtual Visit [address] [phone] Bindu Bueno, OD 909 [place], [place] 013965 Rubi Johnson, OT [address] 184397 08/03/2025 4:30 PM APRON OPERATOR Virtual Visit [facility] [address] [phone] Any Joiner MD [address] [place] [address] [id number] 08/17/2025 12:45 PM APRON OPERATOR Virtual Visit [address] [phone] Bindu Bueno, OD 909 [place], [place] 824575 Rubi Johnson, OT [address] [address] 10/04/2025 10:15 AM APRON OPERATOR Virtual Visit [facility] [address] [address] Santa Menon, PANilesC [address] [place] [address] 405825 01/19/2026 11:30 AM CDT Office Visit [facility] [address] [address] Randy Maradiaga DO [address] [place] [address] documented as of this encounter Visit Diagnoses Not on filedocumented in this encounter Additional Health Concerns Infection Onset Date Last Indicated Resolved Time Rule Out COVID-19 09/13/2024 09/13/2024 09/13/2024 12:31 PM APRON OPERATOR Rule Out COVID-19 11/14/2024 11/14/2024 11/14/2024 8:25 PM APRON OPERATOR documented as of this encounter Care Teams Sole Skiver Relationship Specialty Start Date End Date Timmy Perez MD PCP - Obstetrics/Gynecology 03/02/08 08/07/15 Yung Madrigal MD RETIRED PCP - Orthopaedics Orthopedics 08/26/12 01/20/24 Winston Villatoro OD [facility] [place] [address] [place] [address] PCP - Ophthalmology Ophthalmology 02/11/13 Apple Sykes MD [facility] [place] [address] [place] [address] PCP - General Family Practice 05/04/13 10/25/16 Westley Bates MD XXX RETIRED XXX 701 [facility] [address] [place] [address] PCP - ENT Otolaryngology 05/14/13 07/28/18 Alessandra Cabrales APRN COMPACTOR DRIVER [address] [facility] [place] [address] PCP - General Nurse Practitioner 10/26/16 02/06/17 Clara Jara MD [address] [facility] [place] [address] PCP - General Internal Medicine 02/07/17 09/20/20 Clara Jara MD [address] [place] [address] PCP - Assigned PCP 01/17/17 11/18/18 Denise Woodson APRN COMPACTOR DRIVER [address] [place] [address] PCP - General Family Practice 09/21/20 04/07/25 Randy Maradiaga DO [address] [place] [address] PCP - General Neurology 04/08/25 05/25/25 Denise Woodson APRN COMPACTOR DRIVER [address] [place] [address] PCP - General Family Practice 05/26/25 Clara Jara MD [address] [place] [address] Assigned PCP 01/17/17 07/16/20 Denise Woodson APRN COMPACTOR DRIVER [address] [place] [address] Assigned PCP 07/17/20 Usha Simon APRN COMPACTOR DRIVER [address] [address] Nurse Practitioner Neurological Surgery 01/24/24 Dangelo Salinas MD [address] [place], [place] [phone] Neurology 01/27/24 Usha Simon APRN COMPACTOR DRIVER [address] [place] [address] 705525 Assigned Neuroscience Provider 02/06/24 03/07/24 Anastasia Stearns, RN Lead Bullard Operator 02/06/24 12/17/24 Germaine Aleman, W Community Health Worker Primary Care - CC 02/18/24 12/17/24 Robin Zepeda MD [address] [place] [address] 369475 Assigned Neuroscience Provider 03/08/24 05/07/24 Lisa Zambrano MD [address] [place] [id number] Assigned Heart and Vascular Provider 05/08/24 07/07/24 Raul Hoyos MD [address] [place] [address] Assigned Neuroscience Provider 05/08/24 07/07/24 Joya Lira [facility] [address] [place] [address] Pharmacist Pharmacist 05/25/24 Joya Lira [facility] [address] [place] [address] Assigned MTM Pharmacist 06/08/24 Fabi Coates MD [address] [place] [address] 75 [place] [address] Genetics, Clinical 06/18/24 Robin Zepeda MD [address] [place], [place] [address] [address] Assigned Neuroscience Provider 07/08/24 08/07/24 Danna Cardenas PA-C [address] [place] [address] Assigned Heart and Vascular Provider 07/08/24 12/05/24 Felicita Desai RN Lead Bullard Operator 07/14/24 07/28/24 Arthur Salas, [facility] [address] [place] [address] Assigned Behavioral Health Provider 08/08/24 Randy Maradiaga DO [address] [place] [address] Assigned Neuroscience Provider 08/08/24 Tete Wang MD [address] [place] [address] Genetics, Clinical 10/30/24 Dahlia Joyce MD [address] [place] [address] Radiology Neuroradiology 11/17/24 Lisa Zambrano MD [address] [facility] [address] [place] [address] Assigned Heart and Vascular Provider 12/06/24 Tete Wang MD [address] [place] [address] Assigned Pediatric Specialist Provider 01/06/25 Any Joiner MD [address] [place] [address] 631105 Assigned Pulmonology Provider 02/05/25 Bindu Bueno OD [address] [place] [address] 897975 Assigned Surgical Provider 03/08/25 Aftab Finn MD [address] [address] Dermatology 03/17/25 Aftab Finn MD [address] [place] [address] Assigned Dermatology Provider 04/07/25 Selena Mcfadden, [facility] Community Health Worker 05/25/25 05/26/25 Red De Los Santos LSW Lead Bullard Operator Primary Care - CC 05/26/25 Santa Menon PANilesC [address] [place] [address] Physician Protection Analyst Physical Medicine and Rehabilitation 02/25/25 Alessandra Pereira RN Specialty Bullard Operator Neurological Surgery 06/02/25 documented as of this encounter
--- OUTSIDE RECORDS SUMMARY | 2025-07-07 18:17 | XMS_ITS | Encounter Summary ---
Author Organization [facility] Address [address] [place] [address] Care Team Providers Care [employer] Name Role Phone Winston Villatoro OD Unavailable [phone] Denise Woodson APRN COMMERCIAL LINES INSURANCE AGENT Unavailable +[phone] Denise Woodson APRN COMMERCIAL LINES INSURANCE AGENT Primary Care Provider Usha Simon APRN COMMERCIAL LINES INSURANCE AGENT Unavailable + [phone] Dangelo Salinas MD Unavailable Anastasia Stearns RN Unavailable +[phone] Germaine Aleman CHW Unavailable +[phone] Joya Lira RP Unavailable [phone] Joya Lira RP Unavailable Fabi Coates MD Unavailable [phone] Danna CardenasC Unavailable [phone] SinanselmoledyArthur [employer] SUPERINTENDENT Unavailable [phone] Randy Maradiaga DO Unavailable + Tete Wang MD Unavailable [phone] Dahlia Joyce MD Unavailable +[phone] Lisa Zambrano MD Unavailable + [phone] Tete Wang MD Unavailable +[phone] Any Joiner MD Unavailable [phone] Bindu Bueno OD Unavailable +[phone] Aftab Finn MD Unavailable Randy Maradiaga DO Primary Care Prov ider Aftab Finn MD Unavailable Selena Mcfadden W Unavailable [phone] Denise Woodson APRN COMMERCIAL LINES INSURANCE AGENT Primary Care Provider LesterDarshan diaza BAND SALVAGER Unavailable [phone] Santa Menon PA-C Unavailable +[phone] Alessandra Pereira RN Unavailable Encounter Details Date Type Department Care Team (Late st Contact Info) Description 11/06/2024 MyC Medical Advice [facility] [address] [place] [address] Denise Woodson APRN COMMERCIAL LINES INSURANCE AGENT [address] [place] [address] Social History Tobacco Use Types [...] How often do you attend lutheran or taoist serv ices? 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 Not on file Not on file Not on file Not on file Not on file Not on file documented as of this encounter Plan of Treatment Upcoming Encounters Date Type Department Care Team (Late st Contact Info) Description 07/09/2025 11:00 AM CDT Virtual Visit [address] [phone] Bindu Bueno, OD 909 [place] [address] Rubi Johnson, OT [address] [address] 07/15/2025 2:30 PM CDT Office Visit [facility] [address] [place] [phone] Denise Woodson APRN [facility] [address] [place], [place] [id number] 07/16/2025 11:00 AM CDT Virtual Visit [address] [phone] Bindu Bueno, OD 909 [place] [address] Rubi Johnson, OT [facility] [address] [place] [address] 07/23/2025 11:00 AM LITHOPONE MILL WORKER Virtual Visit [address] [phone] Bindu Bueno, OD 909 [place] [address] Rubi Johnson, OT [address] [address] 08/03/2025 11:00 AM LITHOPONE MILL WORKER Virtual Visit [address] [phone] Bindu Bueno, OD 909 [place], [place] 962275 Rubi Johnson, OT [address] [address] 08/03/2025 4:30 PM LITHOPONE MILL WORKER Virtual Visit [facility] [address] [address] Any Joiner MD [address] [place] [address] 919235 08/17/2025 12:45 PM LITHOPONE MILL WORKER Virtual Visit [address] [phone] Bindu Bueno, OD 909 [place], [place] 199395 Rubi Johnson, OT [address] [address] 10/04/2025 10:15 AM LITHOPONE MILL WORKER Virtual Visit [facility] [address] [phone] Santa Menon, PANilesC [address] [place] [address] 469[address] 01/19/2026 11:30 AM CDT Office Visit [facility] Neurology Clinic [address] [phone] Randy Maradiaga DO [address] [place] [address] 370345 documented as of this encounter Visit Diagnoses Not on filedocumented in this encounter Additional Health Concerns Infection Onset Date Last Indicated Resolved Time Rule Out COVID-19 11/14/2024 11/14/2024 11/14/2024 8:25 PM LITHOPONE MILL WORKER Assessment Noted Time PHQ-9 Depression Total Score: 0 09/18/19 12:46 PM LITHOPONE MILL WORKER documented as of this encounter Care Teams [employer] Relationship Specialty Start Date End Date Winston Villatoro OD [facility] [address] [facility] [address] [place] [address] PCP - Ophthalmology Ophthalmology 02/11/13 Denise Woodson APRN COMMERCIAL LINES INSURANCE AGENT [address] [address] [place] [address] PCP - General Family Practice 09/21/20 04/07/25 Randy Maradiaga DO [address] [place] [address] PCP - General Neurology 04/08/25 05/25/25 Denise Wodoson APRN COMMERCIAL LINES INSURANCE AGENT [address] [place] [address] PCP - General Family Practice 05/26/25 Denise Woodson APRN COMMERCIAL LINES INSURANCE AGENT [address] [place] [address] Assigned PCP 07/17/20 Usha Simon APRN COMMERCIAL LINES INSURANCE AGENT 909 [facility] [address] Nurse Practitioner Neurological Surgery 01/24/24 Dangelo Salinas MD [address] [place] [address] Neurology 01/27/24 Anastasia Stearns, RN Lead Community Living Specialist 02/06/24 12/17/24 Germaine Aleman, CHW Community Health Worker Primary Care - CC 02/18/2412/17/24 Joya Lira RPH [address] [address] Pharmacist Pharmacist 05/25/24 Joya Lira RPH [address] [place] [address] Assigned MTM Pharmacist 06/08/24 Fabi Coates MD 420 [facility] 75 [place] [address] Genetics, Clinical 06/18/24 Danna Cardenas PA-C 6405 [place] [address] Assigned Heart and Vascular Provider 07/08/24 12/05/24 Arthur Salas LICSW [address] [address] Assigned Behavioral Health Provider 08/08/24 Randy Maradiaga DO [address] [place] [address] [phone] Assigned Neuroscience Provider 08/08/24 Tete Wang MD [address] [place] [address] [phone] Genetics, Clinical 10/30/24 Dahlia Joyce MD [address] [place] [address] 844805 Radiology Neuroradiology 11/17/24 Lisa Zambrano MD [address] [address] Assigned Heart and Vascular Provider 12/06/24 Tete Wang MD [address] [place] [address] [phone] Assigned Pediatric Specialist Provider 01/06/25 Any Joiner MD [address] [place] [address] 456225 Assigned Pulmonology Provider 02/05/25 Bindu Bueno OD 909 [place], [place] 529705 Assigned Surgical Provider 03/08/25 Aftab Finn MD [address] 493080 Dermatology 03/17/25 Aftab Finn MD 500 [place], [place] 873185 Assigned Dermatology Provider 04/07/25 Selena Mcfadden [facility] Community Health Worker 05/25/2505/26 Red De Los Santos LSW Lead Community Living Specialist Primary Care - CC 05/26/25 Santa Menon, PA-C [address] [place] [address] 020725 Physician Motor Coach Bus Driver Physical Medicine and Rehabilitation 02/25/25 Alessandra Pereira, RN Specialty Community Living Specialist Neurological Surgery 06/02/25 documented as of this encounter
--- OUTSIDE RECORDS SUMMARY | 2025-07-07 18:18 | XMS_ITS | Encounter Summary ---
Author Organization [facility] Address [address] [place] [address] Care Team Providers Care Laboratory Immunologist Name Role Phone Yung Madrigal MD Unavailable Unavailable Winston Villatoro OD Unavailable [phone] Dada SerumClara MD Primary Care Provider Dada SerumClara MD Unavailable Denise Woodson APRN TELEVISION ACTOR Unavailable [phone] Denise Woodson APRN TELEVISION ACTOR Primary Care Provider Usha Simon APRN TELEVISION ACTOR Unavailable + [phone] Dangelo Salinas MD Unavailable Usha Simon EFFICIENCY ENGINEER TELEVISION ACTOR Unavailable + [phone] Anastasia Stearns RN Unavailable [phone] Germaine Aleman CHW Unavailable [phone] Robin Zepeda MD Unavailable Lisa Zambrano MD Unavailable Raul Hoyos MD Unavailable [phone] Joya Lira [facility] Unavailable [phone] Joya Lira [facility] Unavailable Fabi Coates MD Unavailable [phone] Robin Zepeda MD Unavailable [phone] Danna CardenasC Unavailable [phone] Felicita Desai RN Unavailable Unavailab Arthur Rios Unavailable +[phone] Randy Maradiaga DO Unavailable + Tete Wang MD Unavailable [phone] Dahlia Joyce MD Unavailable [phone] Lisa Zambrano MD Unavailable + [phone] Tete Wang MD Unavailable [phone] Any Joiner MD Unavailable [phone] Myles Bindu OD Unavailable [phone] Aftab Finn MD Unavailable Randy Maradiaga DO Primary Care Prov ider Aftab Finn MD Unavailable Selena Mcfadden CHW Unavailable [phone] Denise Woodson APRN TELEVISION ACTOR Primary Care Provider Red De Los Santos Unavailable [phone] Santa MenonC Unavailable [phone] Alessandra Pereira RN Unavailable Reason for Visit * Reason Onset Date Comments LAB REQUEST 06/16/2019 Encounter Details Date Type Department Care Team (Late st Contact Info) Description 06/16/2019 MyC Medical Advice [facility] [address] [facility] [address] [place] [address] Clara Jara MD [address] [place] [address] LAB REQUEST Social History Tobacco [...] file Legal Sex Female 4:05 AM ASSISTANT PROFESSOR OF SPANISH Gender Identity Not on file Sexual Orientation Not on file 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 Patient requesting to check TSH and antibodies for pt reported possible yonas's. Pended TSH for provider review. documented in this encounter Plan of Treatment Upcoming Encounters Date Type Department Care Team (Late st Contact Info) Description 07/09/2025 11:00 AM CDT Virtual Visit M [address] [phone] Bindu Bueno, OD 909 [place] [address] Rubi Johnson, OT [address] [address] 07/15/2025 2:30 PM CDT Office Visit M [facility] [address] [place] [address] Denise Woodson APRN [facility] [address] [place], [place] [phone] 07/16/2025 11:00 AM CDT Virtual Visit M [address] [phone] Bindu Bueno, OD 909 [place] [address] Rubi Johnson, OT [facility] 150 [place] [address] 07/23/2025 11:00 AM ASSISTANT PROFESSOR OF SPANISH Virtual Visit [facility] 150 [place] [address] Bindu Bueno, OD 909 [place], [place] 764185 Rubi Johnson, OT [address] [address] 08/03/2025 11:00 AM ASSISTANT PROFESSOR OF SPANISH [facility] 150 [place] [address] Bindu Bueno, OD 909 [place] [address] Rubi Johnson, OT [address] [address] 08/03/2025 4:30 PM ASSISTANT PROFESSOR OF SPANISH Virtual Visit [facility] [address] [phone] Any Joiner MD [address] [place] [address] 08/17/2025 12:45 PM ASSISTANT PROFESSOR OF SPANISH Virtual Visit [facility] 150 [place] [phone] Bindu Bueno, OD 909 [facility] [place], [place] 3387[address] Rubi Johnson, OT [facility] 150 [place] [address] 10/04/2025 10:15 AM ASSISTANT PROFESSOR OF SPANISH Virtual Visit [facility] Rehabilitation [facility] [address] [phone] Santa Menon, PA-C [address] [place] [address] 01/19/2026 11:30 AM CDT Office Visit [facility] Neurology Clinic [address] [address] Randy Maradiaga, [address] [place] [address] [phone] documented as of this encounter Results * Follicle stimulating hormone (06/22/2019 3:36 PM CDT) FSH 9.5 IU/L 06/23/2019 2:[address] [facility] Comment: FSH Reference Range Female: Follicular 2.5-10.2 Mid-cycle 3.4-33.4 Luteal 1.5-9.1 Postmenopausal 23.0-116.3 Blood specimen (specimen) 06/22/2019 3:36 PM CDT 06/22/2019 3:37 PM CDT Clara Cornell MD LAB - BLOOD O RDERABLES Final Result [address] [address] * TSH with free T4 reflex FUTURE anytime (06/22/2019 3:36 PM CDT) TSH 3.30 0.40 - 4.00 mU/L 06/23/2019 3:[address] [facility] Blood specimen (specimen) 06/22/2019 3:36 PM CDT 06/22/2019 3:37 PM CDT Clara Cornell MD LAB - BLOOD O RDERABLES Final Result [facility] [address] [place] [address] documented in this encounter Visit Diagnoses Diagnosis Anti-TPO antibodies present- Primary Other and unspecified nonspecific immunological findings Excessive sweating Generalized hyperhidrosis documented in this encounter Additional Health Concerns Infection Onset Date Last Indicated Resolved Time Rule Out COVID-19 09/13/2024 09/13/2024 09/13/2024 12:31 PM ASSISTANT PROFESSOR OF SPANISH Rule Out COVID-19 11/14/2024 11/14/2024 11/14/2024 8:25 PM ASSISTANT PROFESSOR OF SPANISH Assessment Noted Time PHQ-9 Depression Total Score: 0 06/15/20 19 7:09 PM CDT documented as of this encounter Care Teams Laboratory Immunologist Relationship Specialty Start Date End Date Yung Madrigal MD RETIRED PCP - Orthopaedics Orthopedics 08/26/12 01/20/24 Winston Villatoro OD [facility] [place] [address] [place] [address] PCP - Ophthalmology Ophthalmology 02/11/13 Clara Jara MD [facility] [place] [address] [place] [address] PCP - General Internal Medicine 02/07/17 09/20/20 Denise Woodson APRN TELEVISION ACTOR [address] [place] [address] PCP - General Family Practice 09/21/20 04/07/25 Randy Maradiaga DO 909 [place] [address] PCP - General Neurology 04/08/25 05/25/25 Denise Woodson APRN TELEVISION ACTOR [address] [place] [address] PCP - General Family Practice 05/26/25 Clara Jara MD 86[address] [place] [address] Assigned PCP 01/17/17 07/16/20 Denise Woodson APRN TELEVISION ACTOR [address] [facility] [place] [address] Assigned PCP 07/17/20 Usha Simon APRN TELEVISION ACTOR [address] [place] [address] Nurse Practitioner Neurological Surgery 01/24/24 [place] [address] [place] [address] Neurology 01/27/24 Usha Simon APRN TELEVISION ACTOR [address] [address] Assigned Neuroscience Provider 02/06/24 03/07/24 Anastasia Stearns, RN Lead Library Services Dean 02/06/24 12/17/24 Ash Germaine C, [facility] Community Health Worker Primary Care - CC 02/18/2412/17/24 Robin Zepeda MD [address] [address] Assigned Neuroscience Provider 03/08/24 05/07/24 Lisa Zambrano MD [address] [facility] [address] [place] [address] Assigned Heart and Vascular Provider 05/08/24 07/07/24 Raul Hoyos MD [address] [place] [address] Assigned Neuroscience Provider 05/08/24 07/07/24 Joya Lira [facility] [address] [place] [address] Pharmacist Pharmacist 05/25/24 Joya Lira [facility] [address] [place] [address] Assigned MTM Pharmacist 06/08/24 Fabi Coates MD [address] [place] [address] [facility] 75 [place] [address] Genetics, Clinical 06/18/24 Robin Zepeda MD [address] [place] [address] Assigned Neuroscience Provider 07/08/24 08/07/24 Danna Cardenas PA-C 6405 [place] [address] Assigned Heart and Vascular Provider 07/08/24 12/05/24 Felicita Desai, RN Lead Library Services Dean 07/14/24 07/28/24 Arthur Salas [facility] [address] [place] [address] Assigned Behavioral Health Provider 08/08/24 Randy Maradiaga DO [address] [place] [address] [phone] Assigned Neuroscience Provider 08/08/24 Tete Wang MD [address] [place] [address] 191474 Genetics, Clinical 10/30/24 Dahlia Joyce MD [address] [place] [address] 155275 Radiology Neuroradiology 11/17/24 Lisa Zambrano MD [address] [address] Assigned Heart and Vascular Provider 12/06/24 Tete Wang MD [address] [place] [address] 927514 Assigned Pediatric Specialist Provider 01/06/25 Any Joiner MD [address] [place] [address] 679655 Assigned Pulmonology Provider 02/05/25 Myles AMELIE Ruano 909 [place], [place] 872395 Assigned Surgical Provider 03/08/25 Aftab Fnin MD [address] [address] Dermatology 03/17/25 Aftab Finn MD 500 [place], [place] 447755 Assigned Dermatology Provider 04/07/25 Selena Mcfadden [place] Community Health Worker 05/25/2505/26 Red De Los Santos LSW Lead Library Services Dean Primary Care - CC 05/26/25 Santa Menon, PA-C [address] [place] [address] 782225 Physician Telephone Information Supervisor Physical Medicine and Rehabilitation 02/25/25 Alessandra Pereira, RN Specialty Library Services Dean Neurological Surgery 06/02/25 documented as of this encounter
--- OUTSIDE RECORDS SUMMARY | 2025-07-07 18:18 | XMS_ITS | Encounter Summary ---
Author Organization [facility] Address [address] [place] [address] Care Team Providers Care Manager Parking Name Role Phone Winston Villatoro OD Unavailable [phone] Denise Woodson APRN NUTRITION CLUB AMBASSADOR Unavailable [phone] Denise Woodson APRN NUTRITION CLUB AMBASSADOR Primary Care Provider Usha Simon APRN NUTRITION CLUB AMBASSADOR Unavailable + [phone] Dangelo Salinas MD Unavailable Anastasia Stearns RN Unavailable +[phone] Germaine Aleman CHW Unavailable +[phone] Joya Lira RP Unavailable Joya Lira RP Unavailable Fabi Coates MD Unavailable [phone] Danna CardenasC Unavailable +[phone] SinanselmoledyArthur RECREATION LEADER Unavailable +[phone] Randy Maradiaga DO Unavailable + Tete Wang MD Unavailable +[phone] Dahlia Joyce MD Unavailable Lisa Zambrano MD Unavailable + [phone] Tete Wang MD Unavailable +[phone] Any Joiner MD Unavailable +[phone] Bindu Bueno OD Unavailable +[phone] Aftab Finn MD Unavailable Randy Maradiaga DO Primary Care Prov ider Aftab Finn MD Unavailable Selena Mcfadden [facility] Unavailable [phone] Denise Woodson APRN NUTRITION CLUB AMBASSADOR Primary Care Provider Filiberto Red BUNDLE BREAKER Unavailable [phone] Santa Menon PA-C Unavailable +[phone] Alessandra Pereira RN Unavailable Encounter Details Date Type Department Care Team (Late st Contact Info) Description 10/05/2024 MyC Medical Advice [facility] Care Coordination [address] [address] Germaine Aleman, [facility] Social History Tobacco Use Types Packs/Day Years [...] Never 09/16/2024 How often do you attend religion or caodaism serv ices? Never 09/16/2024 Do you belong [...] PHQ-2 Score 0 09/29/2024 [facility] - Occupational Stress Questionnaire Answer [...] on file Legal Sex Female 4:05 AM ESTHETIC DERMATOLOGIST Gender Identity Not on file Sexual Orientation [...] 07/09/2025 11:00 AM CDT Virtual Visit [address] [phone] Bindu Bueno, OD 909 [place], [place] 9[address]285 Rubi Johnson, OT FV [address] [address] 07/15/2025 2:30 PM CDT Office Visit [facility] [address] [place] [phone] Denise Woodson APRN [facility] [address] [place], [place] 3328468 07/16/2025 11:00 AM CDT Virtual Visit [address] [phone] Bindu Bueno, OD 909 [place], [place] 656565 Rubi Johnson, OT [place] [address] [facility] [place] [address] 07/23/2025 11:00 AM ESTHETIC DERMATOLOGIST Virtual Visit [facility] 150 [facility] [place] [phone] Bueno, Bindu, OD 909 [place], [place] 7[address]85 Rubi Johnson, OT [facility] 150 [place] [address] 08/03/2025 11:00 AM ESTHETIC DERMATOLOGIST [facility] 150 [facility] [place] [phone] Bueno, Bindu, OD 909 [place] [address] Rubi Johnson, OT [facility] 150 [place] [address] 08/03/2025 4:30 PM ESTHETIC DERMATOLOGIST Virtual Visit [facility] [address] [phone] Any Joiner MD [address] [place] [address] 801525 08/17/2025 12:45 PM ESTHETIC DERMATOLOGIST [facility] [address] [place] [phone] Bueno, Bindu, OD 909 [place], [place] 049[address] Rubi Johnson, OT FV [address] [address] 10/04/2025 10:15 AM ESTHETIC DERMATOLOGIST Virtual Visit [facility] [address] [phone] Santa Menon, PAMani [address] [place] [address] 292185 01/19/2026 11:30 AM CDT Office Visit [facility] [address] [address] Randy Maradiaga DO [address] [place] [address] 400575 documented as of this encounter Visit Diagnoses Not on filedocumented in this encounter Additional Health Concerns Infection Onset Date Last Indicated Resolved Time Rule Out COVID-19 11/14/2024 11/14/2024 11/14/2024 8:25 PM ESTHETIC DERMATOLOGIST Assessment Noted Time PHQ-9 Depression Total Score: 0 09/18/19 12:46 PM ESTHETIC DERMATOLOGIST documented as of this encounter Care Teams Manager Parking Relationship Specialty Start Date End Date Winston Villatoro, OD [facility] [address] [facility] [address] [place] [address] PCP - Ophthalmology Ophthalmology 02/11/13 Denise Woodson APRN NUTRITION CLUB AMBASSADOR [address] [place] [address] PCP - General Family Practice 09/21/20 04/07/25 Randy Maradiaga DO [address] [place] [address] 641805 PCP - General Neurology 04/08/25 05/25/25 Denise Woodson APRN NUTRITION CLUB AMBASSADOR [address] [place] [address] PCP - General Family Practice 05/26/25 Denise Woodson APRN NUTRITION CLUB AMBASSADOR [address] [place] [address] Assigned PCP 07/17/20 Usha Simon APRN NUTRITION CLUB AMBASSADOR 909 [facility], [place] 270235 Nurse Practitioner Neurological Surgery 01/24/24 Dangelo Salinas MD [address] [place] [address] Neurology 01/27/24 Anastasia Stearns, RN Lead Application Systems Engineer 02/06/24 12/17/24 Germaine Aleman, W Community Health Worker Primary Care - CC 02/18/2412/17/24 Joya Lira [facility] [address] [place] [address] Pharmacist Pharmacist 05/25/24 Joya Lira [facility] [address] [place] [address] Assigned MTM Pharmacist 06/08/24 Fabi Coates MD 420 [facility] 75 [place] [address] Genetics, Clinical 06/18/24 Danna Cardenas PA-C 6405 [place] [address] Assigned Heart and Vascular Provider 07/08/24 12/05/24 OlayinkaNeisha forbesmadiMARA [address] [place] [address] Assigned Behavioral Health Provider 08/08/24 Randy Maradiaga DO [address] [place] [address] 755465 Assigned Neuroscience Provider 08/08/24 Tete Wang MD [address] [place] [address] 904244 Genetics, Clinical 10/30/24 Dahlia Joyce MD [address] [place] [address] 061105 Radiology Neuroradiology 11/17/24 Lisa Zambrano MD [address] [address] Assigned Heart and Vascular Provider 12/06/24 Tete Wang MD [address] [place] [address] 309794 Assigned Pediatric Specialist Provider 01/06/25 Any Joiner MD [address] [place] [address] Assigned Pulmonology Provider 02/05/25 Bindu Bueno OD [address] [place] [address] Assigned Surgical Provider 03/08/25 Aftab Finn MD [address] [address] Dermatology 03/17/25 Aftab Finn MD 500 [place] [address] Assigned Dermatology Provider 04/07/25 Selena Mcfadden [facility] Community Health Worker 05/25/2505/26 Red De Los Santos LSW Lead Application Systems Engineer Primary Care - CC 05/26/25 Santa Menon PANilesC 9 [place] [address] Physician Manager Planning Physical Medicine and Rehabilitation 02/25/25 Alessandra Pereira, RN Specialty Application Systems Engineer Neurological Surgery 06/02/25 documented as of this encounter
--- OUTSIDE RECORDS SUMMARY | 2025-07-07 18:18 | XMS_ITS | Encounter Summary ---
Author Organization [facility] Address [address] [place] [address] Care Team Providers Care Senior Unix Administrator Name Role Phone Yung Madrigal MD Unavailable Unavailable Winston Villatoro OD Unavailable [phone] Denise Woodson APRN TENSION MACHINE OPERATOR Unavailable [phone] Denise Woodson APRN TENSION MACHINE OPERATOR Primary Care Provider Uhsa Simon APRN TENSION MACHINE OPERATOR Unavailable Dangelo Salinas MD Unavailable Usha Simon APRN TENSION MACHINE OPERATOR Unavailable [phone] Anastasia Stearns RN Unavailable Germaine Aleman CHW Unavailable [phone] Robin Zepeda MD Unavailable [phone] Lisa Zambrano MD Unavailable Raul Hoyos MD Unavailable Joya Lira [facility] Unavailable [phone] Joya Lira RPJoleen Unavailable Fabi Coates MD Unavailable [phone] Robin Zepeda MD Unavailable Danna Cardenas PA-C Unavailable +[phone] Felicita Desai RN Unavailable Unavailab Arthur Rios STATION WORKER Unavailable +[phone] Randy Maradiaga DO Unavailable + Tete Wang MD Unavailable [phone] Dahlia Joyce MD Unavailable [phone] Lisa Zambrano MD Unavailable + [phone] Tete Wang MD Unavailable [phone] Any Joiner MD Unavailable +[phone] BuenoBindu OD Unavailable [phone] Aftab Finn MD Unavailable Randy Maradiaga DO Primary Care Prov ider Aftab Finn MD Unavailable Selena Mcfadden CHW Unavailable [phone] Denise Woodson APRN TENSION MACHINE OPERATOR Primary Care Provider Red De Los Santos AUTOMATIC PRESSER Unavailable [phone] Santa Menon PA-C Unavailable +[phone] Alessandra Pereira RN Unavailable Encounter Details Date Type Department Care Team (Late st Contact Info) Description 01/22/2022 MyC Medical Advice [facility] [address] [place] [address] Angelo Escobar Social History Tobacco [...] on file Legal Sex Female 4:05 AM FINGERPRINT CLASSIFIER Gender Identity Not on file Sexual Orientation [...] Description 07/09/2025 11:00 AM CDT Virtual Visit [facility] 150 [place] [phone] Bindu Bueno, OD 909 [place], [place] 221535 Rubi Johnson, OT FV [address] 446967 07/15/2025 2:30 PM CDT Office Visit [facility] [address] [place] [address] Denise Woodson APRN [facility] [address] [place], [place] 0797368 07/16/2025 11:00 AM CDT Virtual Visit [address] [phone] Bindu Bueno, OD 909 [place], [place] 6[address] Rubi Johnson, OT FV [address] [address] 07/23/2025 11:00 AM FINGERPRINT CLASSIFIER Virtual Visit [place] [address] [place] [address] Bindu Bueno, OD 909 [place], [place] 692[address] Rubi Johnson, OT [address] [address] 08/03/2025 11:00 AM FINGERPRINT CLASSIFIER Virtual Visit [address] [phone] Bindu Bueno, OD 909 [place] [address] Rubi Johnson, OT [address] [address] 08/03/2025 4:30 PM FINGERPRINT CLASSIFIER Virtual Visit [facility] [address] [phone] Any Joiner MD [address] [place] [address] 276 [place] [address] 08/17/2025 12:45 PM FINGERPRINT CLASSIFIER Virtual Visit [address] [phone] Bindu Bueno, OD 909 [place], [place] 202835 Rubi Johnson, OT [address] [address] 10/04/2025 10:15 AM FINGERPRINT CLASSIFIER Virtual Visit [facility] [address] [phone] Santa Menon PA-C [address] [place] [address] 95141455 01/19/2026 11:30 AM CDT Office Visit [facility] Neurology Clinic [address] [address] Randy Maradiaga DO [address] [place] [address] 638045 documented as of this encounter Visit Diagnoses Not on filedocumented in this encounter Additional Health Concerns Infection Onset Date Last Indicated Resolved Time Rule Out COVID-19 09/13/2024 09/13/2024 09/13/2024 12:31 PM FINGERPRINT CLASSIFIER Rule Out COVID-19 11/14/2024 11/14/2024 11/14/2024 8:25 PM FINGERPRINT CLASSIFIER Assessment Noted Time PHQ-9 Depression Total Score: 0 06/23/20 21 4:11 PM CDT documented as of this encounter Care Teams Senior Unix Administrator Relationship Specialty Start Date End Date Yung Madrigal MD RETIRED PCP - Orthopaedics Orthopedics 08/26/12 01/20/24 Winston Villatoro, AMELIE [address] 95 [place] [address] PCP - Ophthalmology Ophthalmology 02/11/13 Denise Woodson APRN TENSION MACHINE OPERATOR [address] [place] [address] PCP - General Family Practice 09/21/20 04/07/25 Randy Maradiaga DO [address] [place] [address] 575585 PCP - General Neurology 04/08/25 05/25/25 Denise Woodson APRN TENSION MACHINE OPERATOR [address] [place] 2207268 PCP - General Family Practice 05/26/25 Denise Woodson APRN TENSION MACHINE OPERATOR [address] [place] [address] Assigned PCP 07/17/20 Usha Simon APRN TENSION MACHINE OPERATOR [address] [phone] Nurse Practitioner Neurological Surgery 01/24/24 Dangelo Salinas MD [address] [place], [place] [address] Neurology 01/27/24 Usha Simon APRN TENSION MACHINE OPERATOR [address] [phone] Assigned Neuroscience Provider 02/06/24 03/07/24 Anastasia Stearns, RN Lead Tear Down Matcher 02/06/24 12/17/24 Germaine Aleman, W Community Health Worker Primary Care - CC 02/18/2412/17/24 Robin Zepeda MD [address] 353235 Assigned Neuroscience Provider 03/08/24 05/07/24 Lisa Zambrano MD [address] [place] [address] Assigned Heart and Vascular Provider 05/08/24 07/07/24 Raul Hoyos MD [address] [address] Assigned Neuroscience Provider 05/08/24 07/07/24 Joya Lira [facility] [address] [place] [address] Pharmacist Pharmacist 05/25/24 Joya Lira [facility] [address] [place] [address] Assigned MTM Pharmacist 06/08/24 Fabi Coates MD [address] [place] [address] 75 [place] [address] Genetics, Clinical 06/18/24 Robin Zepeda MD [address] [address] Assigned Neuroscience Provider 07/08/24 08/07/24 Danna Cardenas PA-C [address] [place] [address] Assigned Heart and Vascular Provider 07/08/24 12/05/24 Felicita Desai, GEMA Lead Tear Down Matcher 07/14/24 07/28/24 Arthur Salas [facility] [address] [place] [address] Assigned Behavioral Health Provider 08/08/24 Randy Maradiaga DO [address] [place] [address] 626605 Assigned Neuroscience Provider 08/08/24 Tete Wang MD [address] [place] [address] Genetics, Clinical 10/30/24 Dahlia Joyce MD [address] [place] [address] 878905 Radiology Neuroradiology 11/17/24 [place] [address] [place] [address] [place], [place] 408595 Assigned Heart and Vascular Provider 12/06/24 Tete Wang MD [address] [place] [address] 120594 Assigned Pediatric Specialist Provider 01/06/25 Any Joiner MD [address] [place] [address] 086405 Assigned Pulmonology Provider 02/05/25 Bindu Bueno, OD [address] [place] [address] 820745 Assigned Surgical Provider 03/08/25 Aftab Finn MD [address] [address] Dermatology 03/17/25 Aftab Finn MD 500 [place] [address] Assigned Dermatology Provider 04/07/25 Selena Mcfadden, LUKE Community Health Worker 05/25/2505/26 Red De Los Santos LSW Lead Tear Down Matcher Primary Care - CC 05/26/25 Santa Menon PA-C [address] [place] [address] Physician Medical Equipment Sales Physical Medicine and Rehabilitation 02/25/25 Alessandra Pereira, RN Specialty Tear Down Matcher Neurological Surgery 06/02/25 documented as of this encounter
--- OUTSIDE RECORDS SUMMARY | 2025-07-07 18:18 | XMS_ITS | Encounter Summary ---
Author Organization [facility] Address [address] [place] [address] Care Team Providers Care Resident Manager Name Role Phone Winston Villatoro OD Unavailable [phone] Denise Woodson APRN SALES AND CATERING COORDINATOR Unavailable [phone] Denise Woodson APRN SALES AND CATERING COORDINATOR Primary Care Provider Usha Simon APRN SALES AND CATERING COORDINATOR Unavailable + [phone] Dangelo Salinas MD Unavailable Anastasia Stearns RN Unavailable Germaine Aleman CHW Unavailable [phone] Joya Lira RP Unavailable +[phone] Joya Lira RP Unavailable [phone] Fabi Coates MD Unavailable [phone] Danna CardenasC Unavailable [phone] SinanselmoledyArthur MINING ENGINEER Unavailable [phone] Randy Maradiaga DO Unavailable + Tete Wang MD Unavailable +[phone] Dahlia Joyce MD Unavailable Lisa Zambrano MD Unavailable + [phone] Tete Wang MD Unavailable [phone] Any Joiner MD Unavailable +[phone] Bindu Bueno OD Unavailable [phone] Aftab Finn MD Unavailable Randy Maradiaga DO Primary Care Prov ider Aftab Finn MD Unavailable Selena Mcfadden CHW Unavailable [phone] Denise Woodson APRN SALES AND CATERING COORDINATOR Primary Care Provider Filiberto Red HONING MACHINE SET UP OPERATOR Unavailable [phone] Santa Menon PA-C Unavailable [phone] Alessandra Pereira RN Unavailable Encounter Details Date Type Department Care Team (Late st Contact Info) Description 10/05/2024 [facility] [address] [place] [phone] [facility] Social History Tobacco Use Types Packs/Day [...] Never 09/16/2024 How often do you attend christianity or restorationism serv ices? 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 Not on file Not on file Not on file Not on file Not on file Not on file documented as of this encounter Plan of Treatment Upcoming Encounters Date Type Department Care Team (Late st Contact Info) Description 07/09/2025 11:00 AM CDT Virtual Visit [address] [phone] Bindu Bueno, OD 909 [place], [place] [phone] Rubi Johnson, OT FV [address] 385[address] 07/15/2025 2:30 PM CDT Office Visit [facility] [address] [place] [address] Denise Woodson APRN SALES AND CATERING COORDINATOR [address] [place] [address] 07/16/2025 11:00 AM CDT Virtual Visit [address] [phone] Bindu Bueno, OD 909 [place], [place] 581765 Rubi Johnson, OT FV [address] [address] 07/23/2025 11:00 AM CARTRIDGE ASSEMBLER Virtual Visit [facility] 150 [place] [phone] Bueno, Bindu, OD 909 [place], [place] [address] Rubi Johnson, OT [address] [address] 08/03/2025 11:00 AM CARTRIDGE ASSEMBLER Virtual Visit [address] [phone] Bueno, Bindu, OD 909 [place], [place] 404695 Rubi Johnson, OT [address] [address] 08/03/2025 4:30 PM CARTRIDGE ASSEMBLER Virtual Visit [facility] [address] [phone] Any Joiner MD [address] [place] [address] 08/17/2025 12:45 PM CARTRIDGE ASSEMBLER Virtual Visit [address] [phone] Bueno, Bindu, OD 909 [place] [address] Rubi Johnson, OT [address] [address] 10/04/2025 10:15 AM CARTRIDGE ASSEMBLER Virtual Visit [facility] Rehabilitation Clinic [address] [phone] Santa Menon, PANilesC [address] [place] [address] 310735 01/19/2026 11:30 AM CDT Office Visit [facility] Neurology Clinic [address] [phone] Randy Maradiaga DO [address] [place] [address] 701035 documented as of this encounter Visit Diagnoses Not on filedocumented in this encounter Additional Health Concerns Infection Onset Date Last Indicated Resolved Time Rule Out COVID-19 11/14/2024 11/14/2024 11/14/2024 8:25 PM CARTRIDGE ASSEMBLER Assessment Noted Time PHQ-9 Depression Total Score: 0 09/18/19 12:46 PM CARTRIDGE ASSEMBLER documented as of this encounter Care Teams Resident Manager Relationship Specialty Start Date End Date Winston Villatoro OD [facility] [address] [facility] [address] [place] [address] PCP - Ophthalmology Ophthalmology 02/11/13 Denise Woodson APRN SALES AND CATERING COORDINATOR [address] [place] [address] PCP - General Family Practice 09/21/20 04/07/25 Randy Maradiaga DO [address] [place] [address] PCP - General Neurology 04/08/25 05/25/25 Denise Woodson APRN SALES AND CATERING COORDINATOR [address] [place] [address] PCP - General Family Practice 05/26/25 Denise Woodson APRN SALES AND CATERING COORDINATOR [address] [place] [address] Assigned PCP 07/17/20 Usha Simon APRN SALES AND CATERING COORDINATOR 909 [facility]121[address]J [place], [place] [phone] Nurse Practitioner Neurological Surgery 01/24/24 Dangelo Salinas MD [address] [place], [place] [phone] Neurology 01/27/24 Anastasia Stearns, RN Lead Childbirth And Infant Care Teacher 02/06/24 12/17/24 Germaine Aleman, W Community Health Worker Primary Care - CC 02/18/2412/17/24 Joya Lira [facility] [address] [place] [address] Pharmacist Pharmacist 05/25/24 Joya Lira [facility] [address] [place] [address] Assigned MTM Pharmacist 06/08/24 Fabi Coates MD 420 [facility] 75 [place] [address] Genetics, Clinical 06/18/24 Danna Cardenas PA-C 6405 [place] [address] Assigned Heart and Vascular Provider 07/08/24 12/05/24 ChristophsamanthaledyNeishamadiMARA [address] [place] [address] Assigned Behavioral Health Provider 08/08/24 Randy Maradiaga DO [address] [place] [address] 353475 Assigned Neuroscience Provider 08/08/24 Tete Wang MD [address] [place] [address] Genetics, Clinical 10/30/24 Dahlia Joyce MD [address] [place] [address] 627225 Radiology Neuroradiology 11/17/24 Lisa Zambrano MD 6405 [facility] [place] [address] Assigned Heart and Vascular Provider 12/06/24 Tete Wang MD [address] [place] [address] Assigned Pediatric Specialist Provider 01/06/25 Any Joiner MD [address] [place] [address] Assigned Pulmonology Provider 02/05/25 Bindu Bueno OD 909 [place] [address] Assigned Surgical Provider 03/08/25 Aftab Finn MD [address] [address] Dermatology 03/17/25 Aftab Finn MD [address] [place] [address] Assigned Dermatology Provider 04/07/25 Selena Mcfadden, [facility] Community Health Worker 05/25/2505/26 Red De Los Santos LSW Lead Childbirth And Infant Care Teacher Primary Care - CC 05/26/25 Santa Menon, PA-C [address] [place] [address] Physician Cycle Repairer Physical Medicine and Rehabilitation 02/25/25 Alessandra Pereira, RN Specialty Childbirth And Infant Care Teacher Neurological Surgery 06/02/25 documented as of this encounter
--- OUTSIDE RECORDS SUMMARY | 2025-07-07 18:18 | XMS_ITS | Encounter Summary ---
Author Organization [facility] Address [address] [place] [address] Care Team Providers Care Floor Supervisor Name Role Phone Yung Madrigal MD Unavailable Unavailable Winston Villatoro OD Unavailable [phone] Denise Woodson APRN PEST LOCATOR Unavailable [phone] Denise Woodson APRN PEST LOCATOR Primary Care Provider Usha Simon APRN PEST LOCATOR Unavailable Dangelo Salinas MD Unavailable Usha Simon APRN PEST LOCATOR Unavailable [phone] Anastasia Stearns RN Unavailable Germaine Aleman CHW Unavailable +[phone] Robin Zepeda MD Unavailable Lisa Zambrano MD Unavailable Raul Hoyos MD Unavailable Joya Lira [facility] Unavailable +[phone] Joya Lira RPJoleen Unavailable Fabi Coates MD Unavailable [phone] Robin Zepeda MD Unavailable Danna Cardenas PA-C Unavailable [phone] Felicita Desai RN Unavailable Unavailab le Arthur Salas [employer] TUTOR Unavailable +[phone] Randy Maradiaga DO Unavailable + Tete Wang MD Unavailable [phone] Dahlia Joyce MD Unavailable [phone] Lisa Zambrano MD Unavailable + [phone] Tete Wang MD Unavailable [phone] MD Unavailable +[phone] Myles Bindu OD Unavailable +[phone] Aftab Finn MD Unavailable Randy Maradiaga DO Primary Care Prov ider Aftab Finn MD Unavailable Selena Mcfadden CHW Unavailable [phone] Denise Woodson APRN PEST LOCATOR Primary Care Provider Red De Los Santos LAND SURVEYOR ASSISTANT Unavailable [phone] Santa Menon PA-C Unavailable [phone] Alessandra Pereira RN Unavailable Reason for Visit * Reason Onset Date Comments URI 09/21/2020 Encounter Details Date Type Department Care Team (Late st Contact Info) Description 09/21/2020 [facility] Medical Advice [facility] [address] [place] [address] Denise Woodson APRN PEST LOCATOR [address] [place] [address] URI Social History Tobacco Use [...] file 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 No / Unsure 09/21/2020 12:04 PM ELECTRIC FRYING PAN REPAIRER documented as of this encounter Miscellaneous Notes * Telephone Encounter - Kati Yang RN - 09/21/2020 10:54 AM CST Optherion message sent to patient. Kati Yang RN TRIC FRYING PAN REPAIRER documented in this encounter Plan of Treatment Upcoming Encounters Date Type Department Care Team (Late st Contact Info) Description 07/09/2025 11:00 AM CDT Virtual Visit [address] [phone] Bindu Bueno, OD 909 [place], [place] 365405 Rubi Johnson, OT [address] [address] 07/15/2025 2:30 PM CDT Office Visit [facility] [address] [place] [phone] Denise Woodson APRN [facility] [address] [place] [address] 07/16/2025 11:00 AM CDT Virtual Visit [address] [phone] Bindu Bueno, OD 909 [place] [address] Rubi Johnson, [facility] [address] [place] [address] 07/23/2025 11:00 AM ELECTRIC FRYING PAN REPAIRER Virtual Visit [address] [phone] BuenoBindu, OD 909 [place], [place] 357285 Rubi Johnson, OT [address] [address] 08/03/2025 11:00 AM ELECTRIC FRYING PAN REPAIRER Virtual Visit [address] [phone] Magali Buenoissa, OD 909 [place], [place] 4489[address] Rubi Johnson, OT [address] [address] 08/03/2025 4:30 PM ELECTRIC FRYING PAN REPAIRER Virtual Visit [facility] [place] [address] [place] [phone] Any Joiner MD [address] [place] [address] 259655 08/17/2025 12:45 PM ELECTRIC FRYING PAN REPAIRER Virtual Visit [address] [phone] MylesBindu, OD 909 [place] [address] Rubi Johnson, OT [address] [address] 10/04/2025 10:15 AM ELECTRIC FRYING PAN REPAIRER Virtual Visit [facility] [address] [phone] Santa Menon, PA-C [address] [place] [address] 419265 01/19/2026 11:30 AM CDT Office Visit [facility] [address] [address] Randy Maradiaga, [address] [place] [address] 339455 documented as of this encounter Visit Diagnoses Not on filedocumented in this encounter Additional Health Concerns Infection Onset Date Last Indicated Resolved Time Rule Out COVID-19 09/13/2024 09/13/2024 09/13/2024 12:31 PM ELECTRIC FRYING PAN REPAIRER Rule Out COVID-19 11/14/2024 11/14/2024 11/14/2024 8:25 PM ELECTRIC FRYING PAN REPAIRER Assessment Noted Time PHQ-9 Depression Total Score: 0 06/15/20 19 7:09 PM CDT documented as of this encounter Care Teams Floor Supervisor Relationship Specialty Start Date End Date Yung Madrigal MD RETIRED PCP - Orthopaedics Orthopedics 08/26/12 01/20/24 Winston Villatoro, OD [facility] [place] [address] [place] [address] PCP - Ophthalmology Ophthalmology 02/11/13 Denise Woodson APRN PEST LOCATOR [address] [place] [address] PCP - General Family Practice 09/21/20 04/07/25 Randy Maradiaga DO 909 [place] [address] PCP - General Neurology 04/08/25 05/25/25 Denise Woodson APRN PEST LOCATOR [address] [place] [address] PCP - General Family Practice 05/26/25 Denise Woodson APRN PEST LOCATOR [address] [place] [address] Assigned PCP 07/17/20 Usha Simon APRN PEST LOCATOR [address] [place] [address] 982855 Nurse Practitioner Neurological Surgery 01/24/24 Dangelo Salinas MD [address] [address] Neurology 01/27/24 Usha Simon APRN PEST LOCATOR [address] [place] [address] 616555 Assigned Neuroscience Provider 02/06/24 03/07/24 Anastasia Stearns, RN Lead Drafter Construction 02/06/24 12/17/24 Germaine Aleman, CHW Community Health Worker Primary Care - CC 02/18/2412/17/24 Robin Zepeda MD [address] [address] Assigned Neuroscience Provider 03/08/24 05/07/24 Lisa Zambrano MD 6405 [facility] [address] [place] [address] Assigned Heart and Vascular Provider 05/08/24 07/07/24 Raul Hoyos MD [address] [place] [address] Assigned Neuroscience Provider 05/08/24 07/07/24 Joya Lira [facility] [address] [place] [address] Pharmacist Pharmacist 05/25/24 Joya Lira [facility] [address] [place] [address] Assigned MTM Pharmacist 06/08/24 Fabi Coates MD [address] [place] [address] 75 [place] [address] Genetics, Clinical 06/18/24 Robin Zepeda MD [address] [place] [address] Assigned Neuroscience Provider 07/08/24 08/07/24 Danna Cardenas PA-C 6405 [place] [address] Assigned Heart and Vascular Provider 07/08/24 12/05/24 Felicita Desai, RN Lead Drafter Construction 07/14/24 07/28/24 Arthur Salas, [facility] [address] [place] [address] Assigned Behavioral Health Provider 08/08/24 Randy Maradiaga DO [address] [place] [address] 279515 Assigned Neuroscience Provider 08/08/24 Tete Wang MD [address] [place] [address] Genetics, Clinical 10/30/24 Dahlia Joyce MD [address] [place] [address] 014525 Radiology Neuroradiology 11/17/24 Lisa Zambrano MD [address] [place] [address] Assigned Heart and Vascular Provider 12/06/24 Tete Wang MD [address] [place] [address] Assigned Pediatric Specialist Provider 01/06/25 Any Joiner MD [address] [place] [address] 533315 Assigned Pulmonology Provider 02/05/25 Bindu Bueno OD [address] [place] [address] Assigned Surgical Provider 03/08/25 Aftab Finn MD [address] [address] Dermatology 03/17/25 Aftab Finn MD [address] [place] [address] Assigned Dermatology Provider 04/07/25 Selena Mcfadden, [facility] Community Health Worker 05/25/2505/26 Red De Los Santos LAND SURVEYOR ASSISTANT Lead Drafter Construction Primary Care - CC 05/26/25 Santa Menon, PA-C [address] [place] [address] Physician Rail Flaw Detector Operator Physical Medicine and Rehabilitation 02/25/25 Alessandar Pereira, RN Specialty Drafter Construction Neurological Surgery 06/02/25 documented as of this encounter
--- OUTSIDE RECORDS SUMMARY | 2025-07-07 18:18 | XMS_ITS | Encounter Summary ---
Author Organization [facility] Address [address] [place] [address] Care Team Providers Care Systems Integration Engineer Name Role Phone Winston Villatoro OD Unavailable [phone] Denise Woodson APRN CHECKROOM ATTENDANT Unavailable [phone] Denise Woodson APRN CHECKROOM ATTENDANT Primary Care Provider Usha Simon APRN CHECKROOM ATTENDANT Unavailable + [phone] Dangelo Salinas MD Unavailable Anastasia Stearns RN Unavailable Germaine Aleman CHW Unavailable +[phone] Joya Lira RP Unavailable Joya Lira RP Unavailable Fabi Coates MD Unavailable [phone] Danna CardenasC Unavailable [phone] SinanselmoledyArthur DIP LUBE OPERATOR Unavailable [phone] Randy Maradiaga DO Unavailable + Tete Wang MD Unavailable [phone] Dahlia Joyce MD Unavailable Lisa Zambrano MD Unavailable + [phone] Tete Wang MD Unavailable [phone] Any Joiner MD Unavailable [phone] Bindu Bueno OD Unavailable [phone] Aftab Finn MD Unavailable Randy Maradiaga DO Primary Care Prov ider Aftab Finn MD Unavailable Selena Mcfadden CHW Unavailable [phone] Denise Woodson APRN CHECKROOM ATTENDANT Primary Care Provider Lesterjoe Red INSPECTOR STRUCTURAL BONDING Unavailable [phone] Santa Menon PA-C Unavailable [phone] Alessandra Pereira RN Unavailable Encounter Details Date Type Department Care Team (Late st Contact Info) Description 08/14/2024 [facility] Medical Advice [facility] [address] [address] Randy Maradiaga, DO [address] [place] [address] Social History Tobacco Use Types Packs/Day [...] How often do you attend rastafarian or religion serv ices? 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 Not on file Not on file Not on file Not on file Not on file Not on file documented as of this encounter Plan of Treatment Upcoming Encounters Date Type Department Care Team (Late st Contact Info) Description 07/09/2025 11:00 AM CDT Virtual Visit [address] [phone] Bindu Bueno, OD 909 [place] [address] Rubi Johnson, OT [address] [address] 07/15/2025 2:30 PM CDT Office Visit [facility] [address] [place] [phone] Denise Woodson APRN [facility] [address] [place] [address] 07/16/2025 11:00 AM CDT Virtual Visit [address] [phone] Bindu Bueno, OD 909 [place], [place] [phone] Rubi Johnson, OT [facility] [address] [place] [address] 07/23/2025 11:00 AM SOLAR ENERGY SYSTEM INSTALLER HELPER Virtual Visit [facility] 150 [place] [phone] Bindu Bueno, OD 909 [place] [address] Rubi Johnson, OT [address] [address] 08/03/2025 11:00 AM SOLAR ENERGY SYSTEM INSTALLER HELPER Virtual Visit [address] [phone] Bindu Bueno, OD 909 [place], [place] 007105 Rubi Johnson, OT [address] [address] 08/03/2025 4:30 PM SOLAR ENERGY SYSTEM INSTALLER HELPER Virtual Visit [facility] [address] [phone] Any Joiner MD [address] [place] [address] 767465 08/17/2025 12:45 PM SOLAR ENERGY SYSTEM INSTALLER HELPER Virtual Visit [address] [phone] Bindu Bueno, OD 909 [place], [place] 314515 Rubi Johnson, OT [address] [address] 10/04/2025 10:15 AM SOLAR ENERGY SYSTEM INSTALLER HELPER Virtual Visit [facility] [address] [phone] Santa Menon, PANilesC [address] [place] [address] 868375 01/19/2026 11:30 AM CDT Office Visit [facility] [address] [phone] Randy Maradiaga DO [address] [place] [address] 656335 documented as of this encounter Visit Diagnoses Not on filedocumented in this encounter Additional Health Concerns Infection Onset Date Last Indicated Resolved Time Rule Out COVID-19 09/13/2024 09/13/2024 09/13/2024 12:31 PM SOLAR ENERGY SYSTEM INSTALLER HELPER Rule Out COVID-19 11/14/2024 11/14/2024 11/14/2024 8:25 PM SOLAR ENERGY SYSTEM INSTALLER HELPER Assessment Noted Time PHQ-9 Depression Total Score: 5 08/03/20 24 12:49 PM SOLAR ENERGY SYSTEM INSTALLER HELPER documented as of this encounter Care Teams Systems Integration Engineer Relationship Specialty Start Date End Date Winston Villatoro OD [facility] [place] [address] [place] [address] PCP - Ophthalmology Ophthalmology 02/11/13 Denise Woodson APRN CHECKROOM ATTENDANT [address] [place] [address] PCP - General Family Practice 09/21/20 04/07/25 Randy Maradiaga DO 909 [place], [place] 597025 PCP - General Neurology 04/08/25 05/25/25 Denise Woodson APRN CHECKROOM ATTENDANT [address] [place] [address] PCP - General Family Practice 05/26/25 Denise Woodson APRN CHECKROOM ATTENDANT [address] [facility] [place] [address] Assigned PCP 07/17/20 Usha Simon APRN CHECKROOM ATTENDANT 9 [facility] [id number] [place], [place] 233855 Nurse Practitioner Neurological Surgery 01/24/24 Dangelo Salinas MD [address] [place], [place] [phone] Neurology 01/27/24 Anastasia Stearns, RN Lead Tortilla Maker 02/06/24 12/17/24 Germaine Aleman, W Community Health Worker Primary Care - CC 02/18/2412/17/24 Joya Lira Joleen [address] [place] [address] Pharmacist Pharmacist 05/25/24 Joya Lira RPH [address] [place] [address] Assigned MTM Pharmacist 06/08/24 Fabi Coates MD [address] [place] [address] 75 [place] [address] Genetics, Clinical 06/18/24 Danna Cardenas PA-C 6405 [facility] [place] [address] Assigned Heart and Vascular Provider 07/08/24 12/05/24 Arthur Salas, [facility] [address] [place] [address] Assigned Behavioral Health Provider 08/08/24 Randy Maradiaga DO [address] [place] [address] 357725 Assigned Neuroscience Provider 08/08/24 Tete Wang MD [address] [place] [address] Genetics, Clinical 10/30/24 Dahlia Joyce MD [address] [place] [address] Radiology Neuroradiology 11/17/24 Lisa Zambrano MD [address] [facility] [address] [place] [address] Assigned Heart and Vascular Provider 12/06/24 Tete Wang MD [facility] [place] [address] Assigned Pediatric Specialist Provider 01/06/25 Any Joiner MD [address] [place] [address] 276 [place] [address] Assigned Pulmonology Provider 02/05/25 Myles BinduAMELIE [address] [place] [address] Assigned Surgical Provider 03/08/25 Aftab Finn MD [address] [address] Dermatology 03/17/25 Aftab Finn MD 500 [place] [address] Assigned Dermatology Provider 04/07/25 Selena Mcfadden, [facility] Community Health Worker 05/25/2505/26 Red De Los Santos [facility] Lead Tortilla Maker Primary Care - CC 05/26/25 Santa Menon, PA-C [address] [place] [address] Physician Store Warehouse Associate Physical Medicine and Rehabilitation 02/25/25 Alessandra Pereira RN Specialty Tortilla Maker Neurological Surgery 06/02/25 documented as of this encounter
--- OUTSIDE RECORDS SUMMARY | 2025-07-07 18:18 | XMS_ITS | Encounter Summary ---
Author Organization [facility] Address [address] [place] [address] Care Team Providers Care Lead Housekeeper Name Role Phone Yung Madrigal MD Unavailable Unavailable Winston Villatoro OD Unavailable [phone] Denise Woodson APRN MACHINE STITCHER Unavailable [phone] Denise Woodson APRN MACHINE STITCHER Primary Care Provider Usha Simon APRN MACHINE STITCHER Unavailable Dangelo Salinas MD Unavailable Usha Simon APRN MACHINE STITCHER Unavailable [phone] Anastasia Stearns RN Unavailable [phone] Germaine Aleman CHW Unavailable [phone] Robin Zepeda MD Unavailable Lisa Zambrano MD Unavailable Raul Hoyos MD Unavailable Joya Lira [facility] Unavailable [phone] Joya Lira RPJoleen Unavailable Fabi Coates MD Unavailable [phone] Robin Zepeda MD Unavailable [phone] Danna Cardenas PA-C Unavailable [phone] Felicita Desai RN Unavailable Unavailab le Arthur Salas VMWARE ADMINISTRATOR Unavailable [phone] Randy Maradiaga DO Unavailable + Tete Wang MD Unavailable [phone] Dahlia Joyce MD Unavailable [phone] Lisa Zambrano MD Unavailable + [phone] Tete Wang MD Unavailable [phone] Any Joiner MD Unavailable +[phone] BuenoBindu OD Unavailable [phone] Aftab Finn MD Unavailable Randy Maradiaga DO Primary Care Prov ider Aftab Finn MD Unavailable Selena Mcfadden CHW Unavailable [phone] Denise Woodson APRN MACHINE STITCHER Primary Care Provider Red De Los Santos MARINE ENGINEERING PROFESSOR Unavailable [phone] Santa Menon PA-C Unavailable [phone] Alessandra Pereira RN Unavailable Reason for Visit * Reason Onset Date Comments Medication Request 04/20/2021 escitalopram (LEXAPRO) 10 MG tablet Encounter Details Date Type Department Care Team (Late st Contact Info) Description 04/20/2021 [facility] Medical Advice [facility] [address] [place] [address] Denise Woodson APRN [facility] [address] [place] [address] Medication Request (escitalopram (LEXAPRO)... 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 150 [place] [phone] Bindu Bueno, OD 909 [place] [address] Rubi Johnson, OT [address] 978537 08/03/2025 11:00 AM APPLIQUER Virtual Visit [address] [phone] BuenoBindu, OD [address] [place] [address] 367885 Rubi Johnson, OT [address] [address] 08/03/2025 4:30 PM APPLIQUER Virtual Visit [facility] [address] [phone] Any Joiner MD [address] [place] [address] 385915 08/17/2025 12:45 PM APPLIQUER Virtual Visit [address] [phone] Bindu Bueno, OD [address] [place] [address] 346035 Rubi Johnson, OT [address] 445167 10/04/2025 10:15 AM APPLIQUER Virtual Visit [facility] [address] [phone] Santa Menon, PANilesC [address] [place] [address] 718415 01/19/2026 11:30 AM CDT Office Visit [facility] [address] [phone] Randy Maradiaga DO [address] [place] [address] [phone] documented as of this encounter Visit Diagnoses Diagnosis Generalized anxiety disorder 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, recurrent episode, mild documented in this encounter Additional Health Concerns Infection Onset Date Last Indicated Resolved Time Rule Out COVID-19 09/13/2024 09/13/2024 09/13/2024 12:31 PM APPLIQUER Rule Out COVID-19 11/14/2024 11/14/2024 11/14/2024 8:25 PM APPLIQUER Assessment Noted Time PHQ-9 Depression Total Score: 0 01/05/20 9:31 AM CDT documented as of this encounter Care Teams Lead Housekeeper Relationship Specialty Start Date End Date Yung Madrigal MD RETIRED PCP - Orthopaedics Orthopedics 08/26/12 01/20/24 Winston Villatoro, [facility] [place] [address] [facility] [place] [address] PCP - Ophthalmology Ophthalmology 02/11/13 Denise Woodson APRN MACHINE STITCHER [address] [place] [address] PCP - General Family Practice 09/21/20 04/07/25 Randy Maradiaga DO 909 [place] [address] PCP - General Neurology 04/08/25 05/25/25 Denise Woodson APRN MACHINE STITCHER [address] [place] [address] PCP - General Family Practice 05/26/25 Denise Woodson APRN MACHINE STITCHER [address] [place] [address] Assigned PCP 07/17/20 Usha Simon APRN MACHINE STITCHER [address] [place] [address] Nurse Practitioner Neurological Surgery 01/24/24 Dangelo Salinas MD [address] [place] [address] Neurology 01/27/24 Usha Simon APRN MACHINE STITCHER [address] [address] Assigned Neuroscience Provider 02/06/24 03/07/24 Anastasia Stearns, RN Lead Ocean Freight Manager 02/06/24 12/17/24 Germaine Aleman, CHW Community Health Worker Primary Care - CC 02/18/2412/17/24 Robin Zepeda MD [address] [address] Assigned Neuroscience Provider 03/08/24 05/07/24 Lisa Zambrano MD 6405 [facility] [address] [place] [address] Assigned Heart and Vascular Provider 05/08/24 07/07/24 Raul Hoyos MD 909 [place] [address] [address] Assigned Neuroscience Provider 05/08/24 07/07/24 Joya Lira [facility] [address] [place] [address] Pharmacist Pharmacist 05/25/24 Joya Lira [facility] [address] [place] [address] Assigned MTM Pharmacist 06/08/24 Fabi Coates MD [address] [place] [address] 75 [place], [place] 464845 Genetics, Clinical 06/18/24 Robin Zepeda MD [address] [address] Assigned Neuroscience Provider 07/08/24 08/07/24 Danna Cardenas PA-C 6405 [place] [address] Assigned Heart and Vascular Provider 07/08/24 12/05/24 Felicita Desai, GEMA Lead Ocean Freight Manager 07/14/24 07/28/24 Arthur Salas [facility] [address] [place] [address] Assigned Behavioral Health Provider 08/08/24 Randy Maradiaga DO [address] [place] [address] Assigned Neuroscience Provider 08/08/24 Tete Wang MD [address] [place] [address] Genetics, Clinical 10/30/24 Dahlia Joyce MD [address] [place] [address] Radiology Neuroradiology 11/17/24 Lisa Zambrano MD [address] [place] [address] [address] [place] [address] Assigned Heart and Vascular Provider 12/06/24 Tete Wang MD [address] [place] [address] Assigned Pediatric Specialist Provider 01/06/25 Any Joiner MD [address] [place] [address] 216965 Assigned Pulmonology Provider 02/05/25 Bindu Bueno OD [address] [place] [address] 811135 Assigned Surgical Provider 03/08/25 Aftab Finn MD [address] [place], [place] [address] Dermatology 03/17/25 Aftab Finn MD [address] [place] [address] 573075 Assigned Dermatology Provider 04/07/25 Selena Mcfadden, W Community Health Worker 05/25/2505/26 Red De Los Santos LSW Lead Ocean Freight Manager Primary Care - CC 05/26/25 Santa Menon, PA-C [address] [place] [address] 875425 Physician Prestidigitator Physical Medicine and Rehabilitation 02/25/25 Alessandra Pereira, RN Specialty Ocean Freight Manager Neurological Surgery 06/02/25 documented as of this encounter
--- OUTSIDE RECORDS SUMMARY | 2025-07-07 18:18 | XMS_ITS | Encounter Summary ---
Author Organization [facility] Address [address] [place] [address] Care Team Providers Care Commission Sales Associate Name Role Phone Yung Madrigal MD Unavailable Unavailable Winston Villatoro OD Unavailable [phone] Denise Woodson APRN BENEFITS PROCESSOR Unavailable +[phone] Denise Woodson APRN BENEFITS PROCESSOR Primary Care Provider Usha Simon APRN BENEFITS PROCESSOR Unavailable Dangelo Salinas MD Unavailable Usha Simon APRN BENEFITS PROCESSOR Unavailable [phone] Anasatsia Stearns RN Unavailable Germaine Aleman CHW Unavailable +[phone] Robin Zepeda MD Unavailable Lisa Zambrano MD Unavailable Raul Hoyos MD Unavailable Joya Lira [facility] Unavailable [phone] Joya Lira RPJoleen Unavailable Fabi Coates MD Unavailable [phone] Robin Zepeda MD Unavailable Danna Cardenas PA-C Unavailable +[phone] Felicita Desai RN Unavailable Unavailab le Arthur Salas SUPERVISOR HOT DIP PLATING Unavailable +[phone] Randy Maradiaga DO Unavailable + Tete Wang MD Unavailable +[phone] Dahlia Joyce MD Unavailable +[phone] Lisa Zambrano MD Unavailable + [phone] Tete aWng MD Unavailable +[phone] Any Joiner MD Unavailable +[phone] BuenoBindu OD Unavailable +[phone] Aftab Finn MD Unavailable Randy Maradiaga DO Primary Care Prov ider Aftab Finn MD Unavailable Selena Mcfadden CHW Unavailable [phone] Denise Woodson APRN BENEFITS PROCESSOR Primary Care Provider Red De Los Santos LOOPING MACHINE OPERATOR Unavailable [phone] Santa Menon PA-C Unavailable +[phone] Alessandra Pereira RN Unavailable Reason for Visit * Reason Onset Date Comments MyChart Communication 06/08/2021 Abdominal pain Encounter Details Date Type Department Care Team (Late st Contact Info) Description 06/08/2021 MyC Medical Advice [facility] [address] [place] [address] Denise Woodson APRN BENEFITS PROCESSOR [address] [place] [address] MyChart Communication (Abdominal pain) Social [...] file Legal Sex Female 4:05 AM HAND BOOKBINDER Gender Identity Not on file Sexual Orientation Not on file 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 Not on file Not on file Not on file Not on file Not on file Not on file documented as of this encounter Plan of Treatment Upcoming Encounters Date Type Department Care Team (Late st Contact Info) Description 07/09/2025 11:00 AM CDT Virtual Visit [facility] [address] [place] [address] Bindu Bueno, OD 909 [place], [place] [address] Rubi Johnson, OT [facility] [address] [address] 07/15/2025 2:30 PM CDT Office Visit [facility] [address] [place] [address] Denise Woodson APRN BENEFITS PROCESSOR [address] [place], [place] 50147[address] 07/16/2025 11:00 AM CDT Virtual Visit [address] [phone] Bindu Bueno, OD 909 [place], [place] 587025 Rubi Johnson, OT [address] [address] 07/23/2025 11:00 AM HAND BOOKBINDER Virtual Visit [address] [phone] Bindu Bueno, OD 909 [place] [address] Rubi Johnson, OT [facility] [address] [place] [address] 08/03/2025 11:00 AM HAND BOOKBINDER [facility] [address] [place] [address] Bindu Bueno, OD 909 [place], [place] 637095 Rubi Johnson, OT [address] [address] 08/03/2025 4:30 PM HAND BOOKBINDER Virtual Visit [facility] [address] [phone] Any Joiner MD [address] [place] [address] 08/17/2025 12:45 PM HAND BOOKBINDER Virtual Visit [facility] [address] [place] [phone] Bindu Bueno, OD 909 [place], [place] 245375 Rubi Johnson, OT [address] [address] 10/04/2025 10:15 AM HAND BOOKBINDER Virtual Visit [facility] [place] [address] [phone] Santa Menon PAMani [address] [place] [address] 603525 01/19/2026 11:30 AM CDT Office Visit [facility] [address] [phone] Randy Maradiaga DO [address] [place] [address] 231155 documented as of this encounter Visit Diagnoses Not on filedocumented in this encounter Additional Health Concerns Infection Onset Date Last Indicated Resolved Time Rule Out COVID-19 09/13/2024 09/13/2024 09/13/2024 12:31 PM HAND BOOKBINDER Rule Out COVID-19 11/14/2024 11/14/2024 11/14/2024 8:25 PM HAND BOOKBINDER Assessment Noted Time PHQ-9 Depression Total Score: 0 01/05/20 9:31 AM CDT documented as of this encounter Care Teams Commission Sales Associate Relationship Specialty Start Date End Date Yung Madrigal MD RETIRED PCP - Orthopaedics Orthopedics 08/26/12 01/20/24 Winston Villatoro, OD [facility] [address] [facility] [address] [place] [address] PCP - Ophthalmology Ophthalmology 02/11/13 Denise Woodson APRN BENEFITS PROCESSOR [address] [place] [address] PCP - General Family Practice 09/21/20 04/07/25 Randy Maradiaga DO [address] [place] [address] PCP - General Neurology 04/08/25 05/25/25 Denise Woodson APRN BENEFITS PROCESSOR [address] [place] [address] PCP - General Family Practice 05/26/25 Denise Woodson APRN BENEFITS PROCESSOR [address] [address] [address] Assigned PCP 07/17/20 Usha Simon APRN BENEFITS PROCESSOR [address] [id number] Nurse Practitioner Neurological Surgery 01/24/24 Dangelo Salinas MD [address] [place], [place] [id number] Neurology 01/27/24 Usha Simon APRN BENEFITS PROCESSOR [address] [phone] Assigned Neuroscience Provider 02/06/24 03/07/24 Anastasia Stearns, RN Lead Glassware Defect Repairer 02/06/24 12/17/24 Germaine Aleman, CHW Community Health Worker Primary Care - CC 02/18/2412/17/24 Robin Zepeda MD [address] [phone] Assigned Neuroscience Provider 03/08/24 05/07/24 Lisa Zambrano MD [address] 039385 Assigned Heart and Vascular Provider 05/08/24 07/07/24 Raul Hoyos MD 909 [facility]2121[address]J [place] [address] Assigned Neuroscience Provider 05/08/24 07/07/24 Joya Lira [facility] [address] [place] [address] Pharmacist Pharmacist 05/25/24 Joya Lira [facility] [address] [place] [address] Assigned MTM Pharmacist 06/08/24 Fabi Coates MD [address] [place] [address] 75 [place] [address] Genetics, Clinical 06/18/24 Robin Zepeda MD 909 [facility]121[address] [place] [address] Assigned Neuroscience Provider 07/08/24 08/07/24 Danna Cardenas PA-C [address] [place] [address] Assigned Heart and Vascular Provider 07/08/24 12/05/24 Felicita Desai, GEMA Lead Glassware Defect Repairer 07/14/24 07/28/24 [facility] [address] [place] [address] Assigned Behavioral Health Provider 08/08/24 Randy Maradiaga DO 909 [place], [place] 726795 Assigned Neuroscience Provider 08/08/24 Tete Wang MD [address] [place] [address] Genetics, Clinical 10/30/24 Dahlia Joyce MD [address] [place] [address] 747765 Radiology Neuroradiology 11/17/24 [place] [address] [place], [place] [address] [place] [address] 567335 Assigned Heart and Vascular Provider 12/06/24 Tete Wang MD [address] [place] [address] 427694 Assigned Pediatric Specialist Provider 01/06/25 Any Joiner MD [address] 799755 Assigned Pulmonology Provider 02/05/25 Bindu Bueno OD [address] [place] [address] 294595 Assigned Surgical Provider 03/08/25 Aftab Finn MD [address] 044600 Dermatology 03/17/25 Aftab Finn MD [address] [place] [address] Assigned Dermatology Provider 04/07/25 Selena Mcfadden, W Community Health Worker 05/25/2505/26 Red De Los Santos LSW Lead Glassware Defect Repairer Primary Care - CC 05/26/25 Santa Menon PANilesC 9 [place] [address] Physician Concession Worker Physical Medicine and Rehabilitation 02/25/25 Alessandra Pereira, RN Specialty Glassware Defect Repairer Neurological Surgery 06/02/25 documented as of this encounter
--- OUTSIDE RECORDS SUMMARY | 2025-07-07 18:18 | XMS_ITS | Encounter Summary ---
Author Organization [facility] Address [address] [place] [address] Care Team Providers Care Fitting Room Attendant Name Role Phone Winston Villatoro OD Unavailable [phone] Denise Woodson APRN SOAKING PITS SUPERVISOR Unavailable [phone] Denise Woodson APRN SOAKING PITS SUPERVISOR Primary Care Provider Usha Simon APRN SOAKING PITS SUPERVISOR Unavailable + [phone] Dangelo Salinas MD Unavailable Anastasia Stearns RN Unavailable [phone] Germaine Aleman CHW Unavailable +[phone] Joya Lira RP Unavailable +[phone] Joya Lira RP Unavailable +[phone] Fabi Coates MD Unavailable [phone] Danna CardenasC Unavailable +[phone] SinanselmoledyArthur FOOT WORKER Unavailable +[phone] Randy Maradiaga DO Unavailable + Tete Wang MD Unavailable +[phone] Dahlia Joyce MD Unavailable +[phone] Lisa Zambrano MD Unavailable + [phone] Tete Wang MD Unavailable +[phone] Any Joiner MD Unavailable +[phone] Bindu Bueno OD Unavailable +[phone] Aftab Finn MD Unavailable Randy Maradiaga DO Primary Care Prov ider Aftab Finn MD Unavailable Selena Mcfadden W Unavailable [phone] Denise Woodson APRN SOAKING PITS SUPERVISOR Primary Care Provider LesterRed diaz PHYSICAL THERAPY PROFESSOR Unavailable [phone] Santa Menon PA-C Unavailable [phone] Alessandra Pereira RN Unavailable Reason for Visit * Reason Onset Date Comments Pt. Information/instruction 11/09/2024 Encounter Details Date Type Department Care Team (Late st Contact Info) Description 11/09/2024 Telephone [facility] [address] [place] [address] Denise Woodson APRN SOAKING PITS SUPERVISOR [address] [place] [address] Pt. Information/instructio n Social History [...] How often do you attend baptist or presybeterian serv ices? Never 09/16/2024 Do [...] Answer Date Recorded PHQ-2 Score 0 11/13/2024 [facility] - Occupational Stress Questionnaire Answer Date [...] on file Legal Sex Female 4:05 AM DYNAMITE PACKING MACHINE FEEDER Gender Identity Not on file Sexual [...] we send this information to you in [facility] or would you prefer to receive a phone call?: No preference Okay to leave a detailed message?: N/A at Cell number on file: Telephone Information: MITE PACKING MACHINE FEEDER documented in this encounter Plan of Treatment Upcoming Encounters Date Type Department Care Team (Late st Contact Info) Description 07/09/2025 11:00 AM CDT Virtual Visit [address] [phone] Bindu Bueno, OD 909 [place], [place] 704605 Rubi Johnson, OT [address] [address] 07/15/2025 2:30 PM CDT Office Visit [facility] [address] [place] [address] Denise Woodson, UTILIZATION REVIEW RN [facility] [address] [place] [address] 07/16/2025 11:00 AM CDT Virtual Visit [address] [phone] BuenoBindu flores, OD 909 [place], [place] 928[address] Rubi Johnson, OT [address] [address] 07/23/2025 11:00 AM DYNAMITE PACKING MACHINE FEEDER Virtual Visit [address] [phone] Magali Buenoissa, OD 909 [place], [place] 291565 Rubi Johnson, OT [address] [address] 08/03/2025 11:00 AM DYNAMITE PACKING MACHINE FEEDER Virtual Visit [address] [phone] Bindu Bueno, OD 909 [place], [place] 748265 Rubi Johnson, OT [facility] 150 [place] [address] 08/03/2025 4:30 PM DYNAMITE PACKING MACHINE FEEDER Virtual Visit [facility] [address] [phone] Any Joiner MD [address] [place] [address] 848985 08/17/2025 12:45 PM DYNAMITE PACKING MACHINE FEEDER Virtual Visit [facility] [address] [phone] Bindu Bueno, OD [address] [place] [address] 006495 Rubi Johnson, OT [address] [address] 10/04/2025 10:15 AM DYNAMITE PACKING MACHINE FEEDER Virtual Visit [facility] [address] [phone] Santa Menon, PA-C [address] [place] [address] 711665 01/19/2026 11:30 AM CDT Office Visit [facility] Neurology Clinic [address] [phone] Randy Maradiaga DO [address] [place] [address] 993385 documented as of this encounter Visit Diagnoses Not on filedocumented in this encounter Additional Health Concerns Infection Onset Date Last Indicated Resolved Time Rule Out COVID-19 11/14/2024 11/14/202411/14/2024 8:25 PM DYNAMITE PACKING MACHINE FEEDER Assessment Noted Time PHQ-9 Depression Total Score: 0 09/18/19 12:46 PM DYNAMITE PACKING MACHINE FEEDER documented as of this encounter Care Teams Fitting Room Attendant Relationship Specialty Start Date End Date Winston Villatoro OD [facility] [place] [address] [place] [address] PCP - Ophthalmology Ophthalmology 02/11/13 Denise Woodson APRN SOAKING PITS SUPERVISOR [address] [place] [address] PCP - General Family Practice 09/21/20 04/07/25 Randy Maradiaga DO 909 [place], [place] 950215 PCP - General Neurology 04/08/25 05/25/25 Denise Woodson APRN SOAKING PITS SUPERVISOR [address] [place] [address] PCP - General Family Practice 05/26/25 Denise Woodson APRN SOAKING PITS SUPERVISOR [address] [place] [address] Assigned PCP 07/17/20 Usha Simon APRN SOAKING PITS SUPERVISOR 909 [facility] [id number] [place], [place] 119485 Nurse Practitioner Neurological Surgery 01/24/24 Dangelo Salinas MD [address] [place] [address] Neurology 01/27/24 Anastasia Stearns, RN Lead Magnetic Testing Technician 02/06/24 12/17/24 Germaine Aleman, [facility] Community Health Worker Primary Care - CC 02/18/2412/17/24 Joya Lira [facility] [address] [place] [address] Pharmacist Pharmacist 05/25/24 Joya Lira [facility] [address] [place] [address] Assigned MTM Pharmacist 06/08/24 Fabi Coates MD [address] [place] [address] Genetics, Clinical 06/18/24 Danna Cardenas PA-C [address] [place] [address] Assigned Heart and Vascular Provider 07/08/24 12/05/24 Arthur Salas [facility] [address] [address] Assigned Behavioral Health Provider 08/08/24 Randy Maradiaga DO [address] [place] [address] Assigned Neuroscience Provider 08/08/24 Tete Wang MD [address] [place] [address] Genetics, Clinical 10/30/24 Dahlia Joyce MD [address] [place] [address] [place] [address] Radiology Neuroradiology 11/17/24 [place] [address] [place] [address] [address] [place] [address] Assigned Heart and Vascular Provider 12/06/24 [place] [address] [place] [address] Assigned Pediatric Specialist Provider 01/06/25 Any Joiner MD [address] [place] [address] 227175 Assigned Pulmonology Provider 02/05/25 Bindu Bueno OD [address] [place] [address] Assigned Surgical Provider 03/08/25 Aftab Finn MD [address] [address] Dermatology 03/17/25 Aftab Finn MD [address] [place] [address] Assigned Dermatology Provider 04/07/25 Selena Mcfadden, W Community Health Worker 05/25/2505/26 Red De Los Santos LSW Lead Magnetic Testing Technician Primary Care - CC 05/26/25 Santa Menon, PA-C [address] [place] [address] 966245 Physician Network Admin Physical Medicine and Rehabilitation 02/25/25 Alessandra Pereira RN Specialty Magnetic Testing Technician Neurological Surgery 06/02/25 documented as of this encounter
--- OUTSIDE RECORDS SUMMARY | 2025-07-07 18:18 | XMS_ITS | Encounter Summary ---
Author Organization [place] Address [address] [place] [address] Care Team Providers Care Metal Buffer Name Role Phone Winston Villatoro OD Unavailable +[phone] Denise Woodson APRN KENNEL HELPER Unavailable [phone] Denise Woodson APRN KENNEL HELPER Primary Care Provider Usha Simon APRN KENNEL HELPER Unavailable + [phone] Daneglo Salinas MD Unavailable Anastasia Stearns RN Unavailable +[phone] Germaine Aleman CHW Unavailable +[phone] Joya Lira RP Unavailable +[phone] Joya Lira RP Unavailable +[phone] Fabi Coates MD Unavailable [phone] Danna CardenasC Unavailable +[phone] SinanselmoledyArthur ONLINE PUBLISHER Unavailable [phone] Randy Maradiaga DO Unavailable + Tete Wang MD Unavailable +[phone] Dahlia Joyce MD Unavailable +[phone] Lisa Zambrano MD Unavailable + [phone] Tete Wang MD Unavailable +[phone] Any Joiner MD Unavailable +[phone] Bindu Bueno OD Unavailable +[phone] Aftab Finn MD Unavailable Randy Maradiaga DO Primary Care Prov ider Aftab Finn MD Unavailable Lesa Selena CHW Unavailable [phone] Denise Woodson APRN KENNEL HELPER Primary Care Provider LesterRed diaz HEALTH EDUCATOR Unavailable [phone] Santa Menon PA-C Unavailable +[phone] Alessandra Pereira RN Unavailable Encounter Details Date Type Department Care Team (Late st Contact Info) Description 08/11/[address] [facility] [address] [place] [phone] [facility] [address] [place] [address] Social History Tobacco Use Types Packs/Day Years [...] attend confucianist or religion serv ices? 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 TOOL DESIGNER Gender Identity Not on file Sexual [...] Description 07/09/2025 11:00 AM CDT Virtual Visit [address] [phone] Bindu Bueno, OD 909 [place], [place] [phone] Rubi Johnson, OT [address] [address] 07/15/2025 2:30 PM CDT Office Visit [facility] [address] [place] [address] Denise Woodson APRN [facility] [address] [place] [address] 07/16/2025 11:00 AM CDT Virtual Visit [address] [phone] Bindu Bueno, OD 909 [place] [address] Rubi Johnson, OT [facility] [address] [place] [address] 07/23/2025 11:00 AM TOOL DESIGNER Virtual Visit [address] [phone] Bindu Bueno, OD 909 [place] [address] Rubi Johnson, OT [address] [address] 08/03/2025 11:00 AM TOOL DESIGNER Virtual Visit [address] [phone] Bindu Bueno, OD 909 [place], [place] 6047[address] Rubi Johnson, OT [address] [address] 08/03/2025 4:30 PM TOOL DESIGNER [facility] [address] [phone] Any Joiner MD [address] [place] [address] 151625 08/17/2025 12:45 PM TOOL DESIGNER Virtual Visit [address] [phone] Bindu Bueno, OD 909 [place] [address] Rubi Johnson, OT [address] [address] 10/04/2025 10:15 AM TOOL DESIGNER Virtual Visit [facility] [address] [phone] Santa Menon, PANilesC [address] [place] [address] 425545 01/19/2026 11:30 AM CDT Office [facility] [address] [phone] Randy Maradiaga DO [address] [place] [address] 876805 documented as of this encounter Visit Diagnoses Not on filedocumented in this encounter Additional Health Concerns Infection Onset Date Last Indicated Resolved Time Rule Out COVID-19 09/13/2024 09/13/2024 09/13/2024 12:31 PM TOOL DESIGNER Rule Out COVID-19 11/14/2024 11/14/2024 11/14/2024 8:25 PM TOOL DESIGNER Assessment Noted Time PHQ-9 Depression Total Score: 5 08/03/20 24 12:49 PM TOOL DESIGNER documented as of this encounter Care Teams Metal Buffer Relationship Specialty Start Date End Date Winston Villatoro OD [facility] [place] [address] [place] [address] PCP - Ophthalmology Ophthalmology 02/11/13 Denise Woodson APRN KENNEL HELPER [address] [address] [address] PCP - General Family Practice 09/21/20 04/07/25 Randy Maradiaga DO 909 [place] [address] PCP - General Neurology 04/08/25 05/25/25 Denise Woodson APRN KENNEL HELPER [address] [place] [address] PCP - General Family Practice 05/26/25 Denise Woodson APRN KENNEL HELPER [address] [place] [address] Assigned PCP 07/17/20 Usha Simon APRN KENNEL HELPER 9 [facility] [id number] [place], [place] 258315 Nurse Practitioner Neurological Surgery 01/24/24 Dangelo Salinas MD [address] [place] [address] Neurology 01/27/24 Anastasia Stearns, RN Lead Full Time Babysitter 02/06/24 12/17/24 Germaine Aleman, W Community Health Worker Primary Care - CC 02/18/2412/17/24 Joya Lira R[facility] [address] [address] Pharmacist Pharmacist 05/25/24 Joya Lira RPH [address] [place] [address] Assigned MTM Pharmacist 06/08/24 Fabi Coates MD [address] [place] [address] 75 [place] [address] Genetics, Clinical 06/18/24 Danna Cardenas PA-C 6405 [place] [address] Assigned Heart and Vascular Provider 07/08/24 12/05/24 Arthur Salas [facility] [address] [place] [address] Assigned Behavioral Health Provider 08/08/24 Randy Maradiaga DO [address] [place] [address] 674215 Assigned Neuroscience Provider 08/08/24 Tete Wang MD [address] [place] [address] Genetics, Clinical 10/30/24 Dahlia Joyce MD [address] [place] [address] Radiology Neuroradiology 11/17/24 Lisa Zambrano MD 6405 [facility] [address] [place] [address] Assigned Heart and Vascular Provider 12/06/24 Tete Wang MD [facility] [place] [address] Assigned Pediatric Specialist Provider 01/06/25 Any Joiner MD [address] [place] [address] 276 [place], [place] 156605 Assigned Pulmonology Provider 02/05/25 Myles Bindu AMELIE [address] [place] [address] Assigned Surgical Provider 03/08/25 Aftab Finn MD [address] [address] Dermatology 03/17/25 Aftab Finn MD [address] [place] [address] Assigned Dermatology Provider 04/07/25 Selena Mcfadden, [facility] Community Health Worker 05/25/2505/26 Red De Los Santos, [facility] Lead Full Time Babysitter Primary Care - CC 05/26/25 Santa Menon, PA-C [address] [place] [address] Physician Deicer Repairer Physical Medicine and Rehabilitation 02/25/25 Alessandra Pereira, GEMA Specialty Full Time Babysitter Neurological Surgery 06/02/25 documented as of this encounter
--- OUTSIDE RECORDS SUMMARY | 2025-07-07 18:18 | XMS_ITS | Encounter Summary ---
Author Organization [place] Address [address] [place] [address] Care Team Providers Care Credit Operations Specialist Name Role Phone Yung Madrigal MD Unavailable Unavailable Winston Villatoro OD Unavailable [phone] Dada SerumClara MD Primary Care Provider Dada SerumClara MD Unavailable Denise Woodson APRN RUBBER TURNER Unavailable +[phone] Denise Woodson APRN RUBBER TURNER Primary Care Provider Usha Simon APRN RUBBER TURNER Unavailable + [phone] Dangelo Salinas MD Unavailable Usha Simon TOWER EQUIPMENT INSTALLER RUBBER TURNER Unavailable + [phone] Anastasia Stearns RN Unavailable +[phone] Germaine Aleman CHW Unavailable +[phone] Robin Zepeda MD Unavailable Lisa Zambrano MD Unavailable Raul Hoyos MD Unavailable Joya Lira [facility] Unavailable +[phone] Joya Lira [facility] Unavailable Fabi Coates MD Unavailable [phone] Robin Zepeda MD Unavailable [phone] Danna CardenasC Unavailable +[phone] Felicita Desai RN Unavailable Unavailab Arthur Rios Unavailable +[phone] Randy Maradiaga DO Unavailable + Tete Wang MD Unavailable +[phone] Dahlia Joyce MD Unavailable +[phone] Lisa Zambrano MD Unavailable + [phone] Tete Wang MD Unavailable +[phone] Any Joiner MD Unavailable +[phone] Myles Bindu OD Unavailable +[phone] Aftab Finn MD Unavailable Randy Maradiaga DO Primary Care Prov ider Aftab Finn MD Unavailable Selena Mcfadden CHW Unavailable [phone] Denise Woodson APRN RUBBER TURNER Primary Care Provider Red De Los Santos Unavailable [phone] Santa MenonC Unavailable +[phone] Alessandra Pereira RN Unavailable Encounter Details Date Type Department Care Team (Late st Contact Info) Description 06/16/2019 [facility] [address] [facility] [address] [place] [address] Clara Jara MD [address] 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 SPRAY FOAM INSTALLER Gender Identity Not on file Sexual [...] Description 07/09/2025 11:00 AM CDT Virtual Visit [facility] 150 [place] [phone] Bindu Bueno, OD 909 [place], [place] 424605 Rubi Johnson, OT FV [address] [address] 07/15/2025 2:30 PM CDT Office Visit [facility] [address] [place] [address] Denise Woodson APRN [facility] [address] [place], [place] 0666968 07/16/2025 11:00 AM CDT Virtual Visit [facility] [address] [place] [phone] Bindu Bueno, OD 909 [place], [place] [phone] Rubi Johnson, OT FV [address] 720547 07/23/2025 11:00 AM SPRAY FOAM INSTALLER Virtual Visit [facility] 150 [place] [address] Bindu Bueno, OD 909 [place], [place] [address] Rubi Johnson, OT [facility] 150 [place] [address] 08/03/2025 11:00 AM SPRAY FOAM INSTALLER Virtual Visit [facility] 150 [place] [phone] Bindu Bueno, OD 909 [place] [address] Rubi Johnson, OT [address] [address] 08/03/2025 4:30 PM SPRAY FOAM INSTALLER Virtual Visit [facility] [address] [phone] Any Joiner MD [address] [place] [address] 785955 08/17/2025 12:45 PM SPRAY FOAM INSTALLER Virtual Visit [address] [phone] Bindu Bueno, OD 909 [place], [place] 010775 Rubi Johnson, OT [address] [address] 10/04/2025 10:15 AM SPRAY FOAM INSTALLER Virtual Visit [facility] [address] [phone] Santa Menon, PA-C [address] [place] [address] 974905 01/19/2026 11:30 AM CDT Office Visit [facility] [address] [address] Randy Maradiaga, [address] [place] [address] 163545 documented as of this encounter Visit Diagnoses Not on filedocumented in this encounter Additional Health Concerns Infection Onset Date Last Indicated Resolved Time Rule Out COVID-19 09/13/2024 09/13/2024 09/13/2024 12:31 PM SPRAY FOAM INSTALLER Rule Out COVID-19 11/14/2024 11/14/2024 11/14/2024 8:25 PM SPRAY FOAM INSTALLER Assessment Noted Time PHQ-9 Depression Total Score: 0 06/15/20 19 7:09 PM CDT documented as of this encounter Care Teams Credit Operations Specialist Relationship Specialty Start Date End Date Yung Madrigal MD RETIRED PCP - Orthopaedics Orthopedics 08/26/12 01/20/24 Winston Villatoro OD [facility] [address] [place] [address] PCP - Ophthalmology Ophthalmology 02/11/13 Clara Jara MD [facility] [address] [place] [address] PCP - General Internal Medicine 02/07/17 09/20/20 Denise Woodson APRN RUBBER TURNER [address] [place] [address] PCP - General Family Practice 09/21/20 04/07/25 Randy Maradiaga DO 909 [place] [address] PCP - General Neurology 04/08/25 05/25/25 Denise Woodson APRN RUBBER TURNER [address] [place] [address] PCP - General Family Practice 05/26/25 Clara Jara MD 8675 [place], [place] 648[address] Assigned PCP 01/17/17 07/16/20 Denise Woodson APRN RUBBER TURNER [address] [place] [address] Assigned PCP 07/17/20 Usha Simon APRN RUBBER TURNER [address] [place] [address] 110545 Nurse Practitioner Neurological Surgery 01/24/24 [place] [address] [place] [address] Neurology 01/27/24 Usha Simon APRN RUBBER TURNER [address] [address] Assigned Neuroscience Provider 02/06/24 03/07/24 Anastasia Stearns, RN Lead Supervisor Propellant Charge Loading 02/06/24 12/17/24 Germaine Aleman, CHW Community Health Worker Primary Care - CC 02/18/2412/17/24 Robin Zepeda MD [address] [address] Assigned Neuroscience Provider 03/08/24 05/07/24 Lisa Zambrano MD [address] [facility] [address] [place] [address] Assigned Heart and Vascular Provider 05/08/24 07/07/24 Raul Hoyos MD [address] [place] [address] Assigned Neuroscience Provider 05/08/24 07/07/24 Joya Lira [facility] [address] [place] [address] Pharmacist Pharmacist 05/25/24 Joya Lira [facility] [address] [place] [address] Assigned MTM Pharmacist 06/08/24 Fabi Coates MD [address] [place] [address] 75 [place] [address] Genetics, Clinical 06/18/24 Robin Zepeda MD [address] [place] [address] Assigned Neuroscience Provider 07/08/24 08/07/24 Danna Cardenas PA-C 6405 [place] [address] Assigned Heart and Vascular Provider 07/08/24 12/05/24 Felicita Desai, RN Lead Supervisor Propellant Charge Loading 07/14/24 07/28/24 Arthur Salas, [facility] [address] [place] [address] Assigned Behavioral Health Provider 08/08/24 Randy Maradiaga DO 909 [place], [place] 185305 Assigned Neuroscience Provider 08/08/24 Tete Wang MD [address] [place] [address] 853104 Genetics, Clinical 10/30/24 Dahlia Joyce MD [address] [place] [address] 149795 Radiology Neuroradiology 11/17/24 Lisa Zambrano MD 6[address] [facility] [place] [address] Assigned Heart and Vascular Provider 12/06/24 Tete Wang MD [address] [place] [address] 306854 Assigned Pediatric Specialist Provider 01/06/25 Any Joiner MD [address] [place] [address] 490095 Assigned Pulmonology Provider 02/05/25 Bindu Bueno OD 909 [place] [address] Assigned Surgical Provider 03/08/25 Aftab Finn MD [address] [address] Dermatology 03/17/25 Aftab Finn MD 500 [place] [address] Assigned Dermatology Provider 04/07/25 Selena Mcfadden [place] Community Health Worker 05/25/2505/26 Red De Los Santos LSW Lead Supervisor Propellant Charge Loading Primary Care - CC 05/26/25 Santa Menon, PA-C [address] [place] [address] Physician Shuttle Hand Physical Medicine and Rehabilitation 02/25/25 Alessandra Pereira, RN Specialty Supervisor Propellant Charge Loading Neurological Surgery 06/02/25 documented as of this encounter
--- OUTSIDE RECORDS SUMMARY | 2025-07-07 18:18 | XMS_ITS | Encounter Summary ---
Author Organization [place] Address [address] [place] [address] Care Team Providers Care Print Binding And Finishing Worker Name Role Phone Winston Villatoro OD Unavailable [phone] Denise Woodson APRN LICENSED MASSAGE PRACTITIONER Unavailable +[phone] Denise Woodson APRN LICENSED MASSAGE PRACTITIONER Primary Care Provider Usha Simon APRN LICENSED MASSAGE PRACTITIONER Unavailable + [phone] Dangelo Salinas MD Unavailable Anastasia Stearns RN Unavailable +[phone] Germaine Aleman CHW Unavailable +[phone] Joya Lira RP Unavailable +[phone] Joya Lira RP Unavailable +[phone] Fabi Coates MD Unavailable [phone] Danna CardenasC Unavailable +[phone] SinanselmoledyArthur TUNE UP MECHANIC Unavailable +[phone] Randy Maradiaga DO Unavailable + Tete Wang MD Unavailable +[phone] Dahlia Joyce MD Unavailable Lisa Zambrano MD Unavailable + [phone] Tete Wang MD Unavailable +[phone] Any Joiner MD Unavailable +[phone] Bindu Bueno OD Unavailable +[phone] Aftab Finn MD Unavailable Randy Maradiaga DO Primary Care Prov ider Aftab Finn MD Unavailable Selena Mcfadden CHW Unavailable [phone] Denise Woodson APRN LICENSED MASSAGE PRACTITIONER Primary Care Provider FilibertoRed SENIOR MOBILE SOLUTIONS ARCHITECT Unavailable [phone] Santa Menon-C Unavailable +[phone] Alessandra Pereira RN Unavailable Encounter Details Date Type Department Care Team (Late st Contact Info) Description 11/09/2024 MyC Medical Advice [facility] [address] [place] [phone] Nisa Quach RN Social History Tobacco Use [...] How often do you attend religion or yazidism serv ices? 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 Not on file Not on file Not on file Not on file Not on file Not on file documented as of this encounter Plan of Treatment Upcoming Encounters Date Type Department Care Team (Late st Contact Info) Description 07/09/2025 11:00 AM CDT Virtual Visit [address] [phone] Bindu Bueno, OD 909 [place], [place] [phone] Rubi Johnosn, OT FV [address] 1516[address] 07/15/2025 2:30 PM CDT Office Visit [facility] [address] [place] [address] Denise Woodson APRN LICENSED MASSAGE PRACTITIONER [address] [place] [address] 07/16/2025 11:00 AM CDT Virtual Visit [address] [phone] Bindu Bueno, OD 909 [place], [place] 540[address] Rubi Johnson, OT FV [address] [address] 07/23/2025 11:00 AM CONCRETE TECHNICIAN Virtual Visit [facility] 150 [place] [phone] Bueno, Bindu, OD 909 [place], [place] 703675 Rubi Johnson, OT [address] [address] 08/03/2025 11:00 AM CONCRETE TECHNICIAN Virtual Visit [address] [phone] Bueno, Bindu, OD 909 [place], [place] 499995 Rubi Johnson, OT [address] [address] 08/03/2025 4:30 PM CONCRETE TECHNICIAN Virtual Visit [facility] [address] [phone] Any Joiner MD [address] [place] [address] 08/17/2025 12:45 PM CONCRETE TECHNICIAN Virtual Visit [address] [phone] Bueno, Bindu, OD 909 [place] [address] Rubi Johnson, OT [address] [address] 10/04/2025 10:15 AM CONCRETE TECHNICIAN Virtual Visit [facility] [address] [phone] Santa Menon, PANilesC [address] [place] [address] 628565 01/19/2026 11:30 AM CDT Office Visit [facility] [address] [phone] Randy Maradiaga DO [address] [place] [address] 239155 documented as of this encounter Visit Diagnoses Not on filedocumented in this encounter Additional Health Concerns Infection Onset Date Last Indicated Resolved Time Rule Out COVID-19 11/14/2024 11/14/2024 11/14/2024 8:25 PM CONCRETE TECHNICIAN Assessment Noted Time PHQ-9 Depression Total Score: 0 09/18/19 12:46 PM CONCRETE TECHNICIAN documented as of this encounter Care Teams Print Binding And Finishing Worker Relationship Specialty Start Date End Date Winston Villatoro OD [facility] [address] [facility] [address] [place] [address] PCP - Ophthalmology Ophthalmology 02/11/13 Denise Woodson APRN LICENSED MASSAGE PRACTITIONER [address] [place] [address] PCP - General Family Practice 09/21/20 04/07/25 Randy Maradiaga DO [address] [place] [address] PCP - General Neurology 04/08/25 05/25/25 Denise Woodson APRN LICENSED MASSAGE PRACTITIONER [address] [place] [address] PCP - General Family Practice 05/26/25 Denise Woodson APRN LICENSED MASSAGE PRACTITIONER [address] [place] [address] Assigned PCP 07/17/20 Usha Simon APRN LICENSED MASSAGE PRACTITIONER 909 [facility] [place], [place] [phone] Nurse Practitioner Neurological Surgery 01/24/24 Dangelo Salinas MD [address] [place], [place] [address] Neurology 01/27/24 Anastasia Stearns, RN Lead Hair Rooting Machine Operator 02/06/24 12/17/24 Germaine Aleman, W Community Health Worker Primary Care - CC 02/18/2412/17/24 Joya Lira [facility] [address] [place] [address] Pharmacist Pharmacist 05/25/24 Joya Lira [facility] [address] [place] [address] Assigned MTM Pharmacist 06/08/24 Fabi Coates MD [address] [facility] 75 [place] [address] Genetics, Clinical 06/18/24 Danna Cardenas PA-C 6405 [place] [address] Assigned Heart and Vascular Provider 07/08/24 12/05/24 ChristophsamanthaledyNeishamadiMARA [address] [place] [address] Assigned Behavioral Health Provider 08/08/24 Randy Maradiaga DO [address] [place] [address] 685565 Assigned Neuroscience Provider 08/08/24 Tete Wang MD [address] [place] [address] Genetics, Clinical 10/30/24 Dahlia Joyce MD [address] [place] [address] 204955 Radiology Neuroradiology 11/17/24 Lisa Zambrano MD 6405 [facility] [place] [address] Assigned Heart and Vascular Provider 12/06/24 Tete Wang MD [address] [place] [address] Assigned Pediatric Specialist Provider 01/06/25 Any Joiner MD [address] [place] [address] Assigned Pulmonology Provider 02/05/25 Bindu Bueno OD 909 [place] [address] Assigned Surgical Provider 03/08/25 Aftab Finn MD [address] [address] Dermatology 03/17/25 Aftab Finn MD [address] [place] [address] Assigned Dermatology Provider 04/07/25 Selena Mcfadden, [facility] Community Health Worker 05/25/2505/26 Red De Los Santos LSW Lead Hair Rooting Machine Operator Primary Care - CC 05/26/25 Santa Menon, PA-C [address] [place] [address] Physician Facilities Officer Physical Medicine and Rehabilitation 02/25/25 Alessandra Pereira, RN Specialty Hair Rooting Machine Operator Neurological Surgery 06/02/25 documented as of this encounter
--- OUTSIDE RECORDS SUMMARY | 2025-07-07 18:18 | XMS_ITS | Encounter Summary ---
Author Organization [place] Address [address] [place] [address] Care Team Providers Care Wedger And Gluer Name Role Phone Yung Madrigal MD Unavailable Unavailable Winston Villatoro OD Unavailable [phone] Denise Woodson APRN NUCLEAR PROCESS ENGINEER Unavailable +[phone] Denise Woodson APRN NUCLEAR PROCESS ENGINEER Primary Care Provider Usha Simon APRN NUCLEAR PROCESS ENGINEER Unavailable Dangelo Salinas MD Unavailable Usha Simon APRN NUCLEAR PROCESS ENGINEER Unavailable [phone] Anastasia Stearns RN Unavailable +[phone] Germaine Aleman CHW Unavailable +[phone] Robin Zepeda MD Unavailable Lisa Zambrano MD Unavailable Raul Hoyos MD Unavailable [phone] Joya Lira [facility] Unavailable [phone] Joya Lira RPJoleen Unavailable Fabi Coates MD Unavailable [phone] Robin Zepeda MD Unavailable Danna Cardenas PA-C Unavailable +[phone] Felicita Desai RN Unavailable Unavailab le Arthur Salas LAMP INSPECTOR Unavailable +[phone] Randy Maradiaga DO Unavailable + Tete Wang MD Unavailable +[phone] Dahlia Joyce MD Unavailable [phone] Lisa Zambrano MD Unavailable + [phone] Tete Wang MD Unavailable +[phone] Any Joiner MD Unavailable +[phone] BuenoBindu OD Unavailable [phone] Aftab Finn MD Unavailable Randy Maradiaga DO Primary Care Prov ider Aftab Finn MD Unavailable Selena Mcfadden CHW Unavailable [phone] Denise Woodson APRN NUCLEAR PROCESS ENGINEER Primary Care Provider Filiberto Red SOFTWARE TEAM LEADER Unavailable [phone] Santa Menon PA-C Unavailable [phone] Alessandra Pereira RN Unavailable Encounter Details Date Type Department Care Team (Late st Contact Info) Description 06/13/2021 MyC Medical Advice [facility] [address] [place] [address] Denise Woodson APRN NUCLEAR PROCESS ENGINEER [address] [place] [address] Insomnia, unspecified type Social History [...] on file Legal Sex Female 4:05 AM PEANUT VENDOR Gender Identity Not on file Sexual Orientation Not on file 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 They stated they do not have a refill on file. Prescription approved per [facility] protocol. Mary Caraballo RN on 06/13/2021 at 5:18 PM documented in this encounter Plan of Treatment Upcoming Encounters Date Type Department Care Team (Late st Contact Info) Description 07/09/2025 11:00 AM CDT Virtual Visit [address] [phone] Bindu Bueno, OD 909 [place], [place] 980475 Rubi Johnson, [address] [address] 07/15/2025 2:30 PM CDT Office Visit [facility] [address] [place] [phone] Denise Woodson APRN [facility] [address] [place] [address] 07/16/2025 11:00 AM CDT Virtual Visit [address] [phone] Bindu Bueno, OD 909 [place] [address] Rubi Johnson, OT [address] [address] 07/23/2025 11:00 AM PEANUT VENDOR Virtual Visit [address] [phone] Bindu Bueno, OD 909 [place], [place] 232135 Rubi Johnson, OT [address] [address] 08/03/2025 11:00 AM PEANUT VENDOR Virtual Visit [address] [phone] Myles Bindu, OD 909 [place], [place] 388035 Rubi Johnson, OT [address] [address] 08/03/2025 4:30 PM PEANUT VENDOR Virtual Visit [facility] [address] [phone] Any Joiner MD [address] [place] [address] 954165 08/17/2025 12:45 PM PEANUT VENDOR Virtual Visit [address] [phone] Bindu Bueno, OD 909 [place] [address] Rubi Johnson, OT [address] [address] 10/04/2025 10:15 AM PEANUT VENDOR Virtual Visit [facility] [address] [phone] Santa Menon, PA-C [address] [place] [address] 253175 01/19/2026 11:30 AM CDT Office Visit [facility]rology Clinic [address] [phone] Randy Maradiaga, [address] [place] [address] 459095 documented as of this encounter Visit Diagnoses Diagnosis Insomnia, unspecified type documented in this encounter Additional Health Concerns Infection Onset Date Last Indicated Resolved Time Rule Out COVID-19 09/13/2024 09/13/2024 09/13/2024 12:31 PM PEANUT VENDOR Rule Out COVID-19 11/14/2024 11/14/2024 11/14/2024 8:25 PM PEANUT VENDOR Assessment Noted Time PHQ-9 Depression Total Score: 0 01/05/20 21 9:31 AM CDT documented as of this encounter Care Teams Wedger And Gluer Relationship Specialty Start Date End Date Yung Madrigal MD RETIRED PCP - Orthopaedics Orthopedics 08/26/12 01/20/24 Winston Villatoro, OD [facility] [place] [address] [place] [address] PCP - Ophthalmology Ophthalmology 02/11/13 Denise Woodson APRN NUCLEAR PROCESS ENGINEER [address] [place] [address] PCP - General Family Practice 09/21/20 04/07/25 Randy Maradiaga DO 909 [place] [address] PCP - General Neurology 04/08/25 05/25/25 Denise Woodson APRN NUCLEAR PROCESS ENGINEER [address] [place] [address] PCP - General Family Practice 05/26/25 Denise Woodson APRN NUCLEAR PROCESS ENGINEER [address] [place] [address] Assigned PCP 07/17/20 Usha Simon APRN NUCLEAR PROCESS ENGINEER [address] [place] [address] 406245 Nurse Practitioner Neurological Surgery 01/24/24 Dangelo Salinas MD [address] [address] Neurology 01/27/24 Usha Simon APRN NUCLEAR PROCESS ENGINEER [address] 581085 Assigned Neuroscience Provider 02/06/24 03/07/24 Anastasia Stearns, RN Lead Master Esthetician 02/06/24 12/17/24 Germaine Aleman, CHW Community Health Worker Primary Care - CC 02/18/2412/17/24 Robin Zepeda MD [address] [address] Assigned Neuroscience Provider 03/08/24 05/07/24 Lisa Zambrano MD 6405 [facility] [address] [place] [address] Assigned Heart and Vascular Provider 05/08/24 07/07/24 Raul Hoyos MD [address] [address] Assigned Neuroscience Provider 05/08/24 07/07/24 Joya Lira [facility] [address] [place] [address] Pharmacist Pharmacist 05/25/24 Joya Lira [facility] [address] [place] [address] Assigned MTM Pharmacist 06/08/24 Fabi Coates MD [address] [place] [address] 75 [place] [address] Genetics, Clinical 06/18/24 Robin Zepeda MD [address] [place] [address] Assigned Neuroscience Provider 07/08/24 08/07/24 Danna Cardenas PA-C 6405 [place] [address] Assigned Heart and Vascular Provider 07/08/24 12/05/24 Felicita Desai, RN Lead Master Esthetician 07/14/24 07/28/24 Arthur Salas, [facility] [address] [place] [address] Assigned Behavioral Health Provider 08/08/24 Randy Maradiaga DO [address] [place] [address] 550155 Assigned Neuroscience Provider 08/08/24 Tete Wang MD [address] [place] [address] 899774 Genetics, Clinical 10/30/24 Dahlia Joyce MD [address] [place] [address] 180175 Radiology Neuroradiology 11/17/24 Lisa Zambrano MD [address] [place] [address] Assigned Heart and Vascular Provider 12/06/24 Tete Wang MD [address] [place] [address] Assigned Pediatric Specialist Provider 01/06/25 Any Joiner MD [address] [place] [address] 883355 Assigned Pulmonology Provider 02/05/25 Bindu Bueno OD [address] [place] [address] Assigned Surgical Provider 03/08/25 Aftab Finn MD [address] [address] Dermatology 03/17/25 Aftab Finn MD 500 [place] [address] Assigned Dermatology Provider 04/07/25 Selena Mcfadden, [facility] Community Health Worker 05/25/2505/26 Red De Los Santos LSW Lead Master Esthetician Primary Care - CC 05/26/25 Santa Menon, PA-C [address] [place] [address] Physician Electronic Publications Specialist Physical Medicine and Rehabilitation 02/25/25 Alessandra Pereira, RN Specialty Master Esthetician Neurological Surgery 06/02/25 documented as of this encounter
--- OUTSIDE RECORDS SUMMARY | 2025-07-07 18:18 | XMS_ITS | Encounter Summary ---
Author Organization [place] Address [address] [place] [address] Care Team Providers Care Biology Tutor Name Role Phone Yung Madrigal MD Unavailable Unavailable Winston Villatoro OD Unavailable [phone] Denise Woodson APRN CORE MOUNTER Unavailable +[phone] Denise Woodson APRN CORE MOUNTER Primary Care Provider Usha Simon APRN CORE MOUNTER Unavailable Dangelo Salinas MD Unavailable Usha Simon APRN CORE MOUNTER Unavailable [phone] Anastasia Stearns RN Unavailable Germaine Aleman CHW Unavailable +[phone] Robin Zepeda MD Unavailable [phone] Lisa Zambrano MD Unavailable Raul Hoyos MD Unavailable Joya Lira [facility] Unavailable [phone] Joya Lira RPJoleen Unavailable +[phone] Fabi Coates MD Unavailable [phone] Robin Zepeda MD Unavailable +[phone] Danna Cardenas PA-C Unavailable +[phone] Felicita Desai RN Unavailable Unavailab Arthur Rios [employer] OFFICER Unavailable +[phone] Randy Maradiaga DO Unavailable + Tete Wang MD Unavailable +[phone] Dahlia Joyce MD Unavailable +[phone] Lisa Zambrano MD Unavailable + [phone] Tete Wang MD Unavailable +[phone] Any Joiner MD Unavailable +[phone] BuenoBindu OD Unavailable +[phone] Aftab Finn MD Unavailable Randy Maradiaga DO Primary Care Prov ider Aftab Finn MD Unavailable Selena Mcfadden CHW Unavailable [phone] Denise Woodson APRN CORE MOUNTER Primary Care Provider Red De Los Santos POSITION DESCRIPTION MANAGER Unavailable [phone] Santa Menon PA-C Unavailable +[phone] Alessandra Pereira RN Unavailable Encounter Details Date Type Department Care Team (Late st Contact Info) Description 12/30/2020 MyC Medical Advice [facility] [id number] [place] [address] Jessica Phipps, MEND WORKER Social History Tobacco Use Types Packs/Day Years Used Date Smoking Tobacco: Never Smokeless Tobacco: Never Alcohol Use Standard Drinks/Week Comments Yes 0 (1 standard drink = 0.6 oz pur e alcohol) minimal PHQ-2 Answer Date Recorded PHQ-2 Score 2 07/13/2020 Comments No Sex and Gender Information Value Date Recorded Sex Assigned at Not on file Legal Sex Female 4:05 AM HEARING THERAPY TEACHER Gender Identity Not on file Sexual Orientation Not on file 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 file Not [...] Description 07/09/2025 11:00 AM CDT Virtual Visit [address] [phone] Bindu Bueno, OD 909 [place], [place] [phone] Rubi Johnson, OT [address] 962957 07/15/2025 2:30 PM CDT Office Visit [facility] [address] [place] [address] Denise Woodson APRN [facility] [address] [place], [place] 1961468 07/16/2025 11:00 AM CDT Virtual Visit [address] [phone] Bindu Bueno, OD 909 [place], [place] 316265 Rubi Johnson, OT [address] 299[address] 07/23/2025 11:00 AM HEARING THERAPY TEACHER Virtual Visit [address] [phone] Bindu Bueno, OD 909 [place], [place] 075205 Rubi Johnson, OT [facility] [address] [place] [address] 08/03/2025 11:00 AM HEARING THERAPY TEACHER Virtual Visit [facility] 150 [place] [phone] Bindu Bueno, OD 909 [place], [place] 376735 Rubi Johnson, OT [address] [address] 08/03/2025 4:30 PM HEARING THERAPY TEACHER Virtual Visit [facility] [address] [phone] Any Joiner MD [address] [place] [address] 846555 08/17/2025 12:45 PM HEARING THERAPY TEACHER Virtual Visit [address] [phone] Bindu Bueno, OD 909 [place] [address] Rubi Johnson, OT [address] [address] 10/04/2025 10:15 AM HEARING THERAPY TEACHER Virtual Visit [facility] [address] [place] [phone] Santa Menon PA-C [address] [place] [address] 01/19/2026 11:30 AM CDT Office Visit [facility] Neurology [address] 3rd [place] [phone] Randy Maradiaga DO [address] [place] [address] 723175 documented as of this encounter Visit Diagnoses Not on filedocumented in this encounter Additional Health Concerns Infection Onset Date Last Indicated Resolved Time Rule Out COVID-19 09/13/2024 09/13/2024 09/13/2024 12:31 PM HEARING THERAPY TEACHER Rule Out COVID-19 11/14/2024 11/14/2024 11/14/2024 8:25 PM HEARING THERAPY TEACHER Assessment Noted Time PHQ-9 Depression Total Score: 0 06/15/20 19 7:09 PM CDT documented as of this encounter Care Teams Biology Tutor Relationship Specialty Start Date End Date Yung Madrigal MD RETIRED PCP - Orthopaedics Orthopedics 08/26/12 01/20/24 Winston Villatoro OD [facility] [address] [facility] [address] [place] [address] PCP - Ophthalmology Ophthalmology 02/11/13 Denise Woodson APRN CORE MOUNTER [address] [place] [address] PCP - General Family Practice 09/21/20 04/07/25 Randy Maradiaga DO [address] [place] [address] PCP - General Neurology 04/08/25 05/25/25 Denise Woodson APRN CORE MOUNTER [address] [place] [address] PCP - General Family Practice 05/26/25 Denise Woodson APRN CORE MOUNTER [address] [place] [address] Assigned PCP 07/17/20 Usha Simon APRN CORE MOUNTER [address] 568355 Nurse Practitioner Neurological Surgery 01/24/24 Dangelo Salinas MD [address] [place] [address] Neurology 01/27/24 Usha Simon APRN CORE MOUNTER [address] 677485 Assigned Neuroscience Provider 02/06/24 03/07/24 Anastasia Stearns, RN Lead Ornamental Machine Operator 02/06/24 12/17/24 Germaine Aleman, W Community Health Worker Primary Care - CC 02/18/2412/17/24 Robin Zepeda MD [address] 643295 Assigned Neuroscience Provider 03/08/24 05/07/24 Lisa Zambrano MD [address] [place] [address] Assigned Heart and Vascular Provider 05/08/24 07/07/24 Raul Hoyos MD 9 [facility]121CJ [place] [address] Assigned Neuroscience Provider 05/08/24 07/07/24 Joya Lira [facility] [address] [place] [address] Pharmacist Pharmacist 05/25/24 Joya Lira [facility] [address] [place] [address] Assigned MTM Pharmacist 06/08/24 Fabi Coates MD [address] [place] [address] 75 [place] [address] Genetics, Clinical 06/18/24 Robin Zepeda MD [address] [place] [address] [address] Assigned Neuroscience Provider 07/08/24 08/07/24 Danna Cardenas PA-C [address] [place] [address] Assigned Heart and Vascular Provider 07/08/24 12/05/24 Felicita Desai, GEMA Lead Ornamental Machine Operator 07/14/24 07/28/24 Arthur Salas [facility] [address] [address] Assigned Behavioral Health Provider 08/08/24 Randy Maradiaga DO [address] [place] [address] Assigned Neuroscience Provider 08/08/24 Tete Wang MD [address] [place] [address] Genetics, Clinical 10/30/24 Dahlia Joyce MD [address] [place] [address] Radiology Neuroradiology 11/17/24 Lisa Zambrano MD [address] [place] [address] 398785 Assigned Heart and Vascular Provider 12/06/24 Tete Wang MD [address] [place] [address] Assigned Pediatric Specialist Provider 01/06/25 Any Joiner MD [address] [place] [address] 560695 Assigned Pulmonology Provider 02/05/25 Bindu Bueno, AMELIE [address] [place] [address] 788265 Assigned Surgical Provider 03/08/25 Aftab Finn MD [address] 707530 Dermatology 03/17/25 Aftab Finn MD [address] [place] [address] 731605 Assigned Dermatology Provider 04/07/25 Selena Mcfadden, CHW Community Health Worker 05/25/2505/26 Red De Los Santos LSW Lead Ornamental Machine Operator Primary Care - CC 05/26/25 Santa Menon [facility] [address] [place] [address] Physician Manager Package Physical Medicine and Rehabilitation 02/25/25 Alessandra Pereira, RN Specialty Ornamental Machine Operator Neurological Surgery 06/02/25 documented as of this encounter
--- OUTSIDE RECORDS SUMMARY | 2025-07-07 18:18 | XMS_ITS | Encounter Summary ---
Author Organization [place] Address [address] [place] [address] Care Team Providers Care Sketch Liner Name Role Phone Yung Madrigal MD Unavailable Unavailable Winston Villatoro OD Unavailable [phone] Denise Woodson APRN FRAME OPERATOR Unavailable [phone] Denise Woodson APRN FRAME OPERATOR Primary Care Provider Usha Simon APRN FRAME OPERATOR Unavailable Dangelo Salinas MD Unavailable Usha Simon APRN FRAME OPERATOR Unavailable [phone] Anastasia Stearns RN Unavailable +[phone] Germaine Aleman CHW Unavailable [phone] Robin Zepeda MD Unavailable Lisa Zambrano MD Unavailable Raul Hoyos MD Unavailable Joya Lira [facility] Unavailable [phone] Joya Lira RPJoleen Unavailable Fabi Coates MD Unavailable [phone] Robin Zepeda MD Unavailable Danna Cardenas PA-C Unavailable +[phone] Felicita Desai RN Unavailable Unavailab Arthur Rios ENERGY ATTORNEY Unavailable +[phone] Randy Maradiaga DO Unavailable + Tete Wang MD Unavailable [phone] Dahlia Joyce MD Unavailable [phone] Lisa Zambrano MD Unavailable + [phone] Tete Wang MD Unavailable [phone] Any Joiner MD Unavailable +[phone] BuenoBindu flores OD Unavailable +[phone] Aftab Finn MD Unavailable Randy Maradiaga DO Primary Care Prov ider Aftab Finn MD Unavailable Selena Mcfadden CHW Unavailable [phone] Denise Woodson APRN FRAME OPERATOR Primary Care Provider Red De Los Santos RESTAURANT BUSSER Unavailable [phone] Santa Menon PA-C Unavailable [phone] Alessandra Pereira RN Unavailable Encounter Details Date Type Department Care Team (Late st Contact Info) Description 01/10/2023 MyC Medical Advice [facility] [address] [place] [address] Arianna Lo Social History Tobacco Use [...] file Legal Sex Female 4:05 AM SUPERVISOR CLAIMS Gender Identity Not on file Sexual Orientation Not on file 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 Not on file Not on file Not on file Not on file Not on file documented as of this encounter Plan of Treatment Upcoming Encounters Date Type Department Care Team (Late st Contact Info) Description 07/09/2025 11:00 AM CDT Virtual Visit [address] [phone] Bindu Bueno, OD 909 [place], [place] 652195 Rubi Johnson, OT FV [address] 939107 07/15/2025 2:30 PM CDT Office Visit [facility] [address] [place] [phone] Denise Woodson APRN FRAME OPERATOR [address] [place] [address] 07/16/2025 11:00 AM CDT Virtual Visit [address] [phone] Bindu Bueno, OD 909 [place], [place] 681265 Rubi Johnson, OT FV [address] 244497 07/23/2025 11:00 AM SUPERVISOR CLAIMS Virtual Visit [address] [phone] Bindu Bueno, OD 909 [place], [place] 346645 Rubi Johnson, OT [address] [address] 08/03/2025 11:00 AM SUPERVISOR CLAIMS Virtual Visit M [address] [phone] Bindu Bueno, OD 909 [place], [place] 230205 Rubi Johnson, OT [address] [address] 08/03/2025 4:30 PM SUPERVISOR CLAIMS Virtual Visit [facility] [address] [phone] Any Joiner MD [address] [place] [address] 08/17/2025 12:45 PM SUPERVISOR CLAIMS Virtual Visit M [address] [phone] Bindu Bueno, OD 9 [place], [place] 749855 Rubi Johnson, OT [address] [address] 10/04/2025 10:15 AM SUPERVISOR CLAIMS Virtual Visit [facility] [address]rd [place] [phone] Santa Menon, PANilesC [address] [place] [address] 795525 01/19/2026 11:30 AM CDT Office Visit [facility] [address] 3rd [place] [address] Randy Maradiaga DO [address] [place] [address] documented as of this encounter Visit Diagnoses Not on filedocumented in this encounter Additional Health Concerns Infection Onset Date Last Indicated Resolved Time Rule Out COVID-19 09/13/2024 09/13/2024 09/13/2024 12:31 PM SUPERVISOR CLAIMS Rule Out COVID-19 11/14/2024 11/14/2024 11/14/2024 8:25 PM SUPERVISOR CLAIMS Assessment Noted Time PHQ-9 Depression Total Score: 0 06/23/20 21 4:11 PM CDT documented as of this encounter Care Teams Sketch Liner Relationship Specialty Start Date End Date Yung Madrigal MD RETIRED PCP - Orthopaedics Orthopedics 08/26/12 01/20/24 Winston Villatoro OD [facility] [address] [facility] [address] [place] [address] PCP - Ophthalmology Ophthalmology 02/11/13 Denise Woodson APRN FRAME OPERATOR [address] [place] [address] PCP - General Family Practice 09/21/20 04/07/25 Randy Maradiaga DO [address] [place] [address] PCP - General Neurology 04/08/25 05/25/25 Denise Woodson APRN FRAME OPERATOR [address] [place] [address] PCP - General Family Practice 05/26/25 Denise Woodson APRN FRAME OPERATOR [address] [place] [address] Assigned PCP 07/17/20 Usha Simon APRN FRAME OPERATOR [address] 869965 Nurse Practitioner Neurological Surgery 01/24/24 Dangelo Salinas MD [address] [place], [place] 73[address] Neurology 01/27/24 Usha Simon APRN FRAME OPERATOR [address] [place] [address] 365045 Assigned Neuroscience Provider 02/06/24 03/07/24 Anastasia Stearns, RN Lead Wharf Labourer 02/06/24 12/17/24 Germaine Aleman, W Community Health Worker Primary Care - CC 02/18/2412/17/24 Robin Zepeda MD [address] [place] [address] 813345 Assigned Neuroscience Provider 03/08/24 05/07/24 Lisa Zambrano MD [address] [place] 562825 Assigned Heart and Vascular Provider 05/08/24 07/07/24 Raul Hoyos MD [address] [place] [address] Assigned Neuroscience Provider 05/08/24 07/07/24 Joya Lira [facility] [address] [place] [address] Pharmacist Pharmacist 05/25/24 Joya Lira [facility] [address] [place] [address] Assigned MTM Pharmacist 06/08/24 Fabi Coates MD [address] [place] [address] 75 [place] [address] Genetics, Clinical 06/18/24 Robin Zepeda MD [address] [place] [address] [id number] [place] [address] Assigned Neuroscience Provider 07/08/24 08/07/24 Danna Cardenas PA-C 6405 [place] [address] Assigned Heart and Vascular Provider 07/08/24 12/05/24 Felicita Desai RN Lead Wharf Labourer 07/14/24 07/28/24 Arthur Salas, [facility] [address] [place] [address] Assigned Behavioral Health Provider 08/08/24 Randy Maradiaga DO [address] [place] [address] Assigned Neuroscience Provider 08/08/24 Tete Wang MD [address] [place] [address] Genetics, Clinical 10/30/24 Dahlia Joyce MD [address] [place] [address] Radiology Neuroradiology 11/17/24 [place] [address] [place] [address] [address] [place] [address] Assigned Heart and Vascular Provider 12/06/24 Tete Wang MD [address] [place] [address] Assigned Pediatric Specialist Provider 01/06/25 Any Joiner MD [address] [place] [address] 968695 Assigned Pulmonology Provider 02/05/25 Bindu Bueno OD [address] [place] [address] Assigned Surgical Provider 03/08/25 Aftab Finn MD [address] [address] Dermatology 03/17/25 Aftab Finn MD [address] [place] [address] Assigned Dermatology Provider 04/07/25 Selena Mcfadden, Dul[place] Community Health Worker 05/25/2505/26 Red De Los Santos LSW Lead Wharf Labourer Primary Care - CC 05/26/25 Santa Menon, PANilesC 9 [place] [address] Physician Market Maker Physical Medicine and Rehabilitation 02/25/25 Alessandra Pereira RN Specialty Wharf Labourer Neurological Surgery 06/02/25 documented as of this encounter
--- OUTSIDE RECORDS SUMMARY | 2025-07-07 18:19 | XMS_ITS | Encounter Summary ---
Author Organization [place] Address [address] [place] [address] Care Team Providers Care Criminal Analyst Name Role Phone Winston Villatoro OD Unavailable [phone] Denise Woodson APRN BRAKE REPAIR MECHANIC Unavailable [phone] Denise Woodson APRN BRAKE REPAIR MECHANIC Primary Care Provider Usha Simon APRN BRAKE REPAIR MECHANIC Unavailable + [phone] Dangelo Salinas MD Unavailable Anastasia Stearns RN Unavailable +[phone] Germaine Aleman CHW Unavailable +[phone] Joya Lira RP Unavailable +[phone] Joya Lira RP Unavailable Fabi Coates MD Unavailable [phone] Danna CardenasC Unavailable [phone] SinanselmoledyArthur BACK SEWER Unavailable [phone] Randy Maradiaga DO Unavailable + Tete Wang MD Unavailable +[phone] Dahlia Joyce MD Unavailable Lisa Zambrano MD Unavailable + [phone] Tete Wang MD Unavailable [phone] Any Joiner MD Unavailable +[phone] Bindu Bueno OD Unavailable +[phone] Aftab Finn MD Unavailable Randy Maradiaga DO Primary Care Prov ider Aftab Finn MD Unavailable Lesa Selena CHW Unavailable [phone] Denise Woodson APRN BRAKE REPAIR MECHANIC Primary Care Provider Filiberto Red WHITE SHOE EXAMINER Unavailable [phone] Santa Menon PA-C Unavailable [phone] Alessandra Pereira RN Unavailable Encounter Details Date Type Department Care Team (Late st Contact Info) Description 09/04/2024 MyC Medical Advice [address] [phone] Qing Valentine Social History Tobacco [...] How often do you attend christianity or orthodox serv ices? Never 02/28/2024 Do [...] Answer Date Recorded PHQ-2 Score 2 08/04/2024 [facility] [...] on file Legal Sex Female 4:05 AM CONFIGURATION MANAGER Gender Identity Not on file Sexual [...] Description 07/09/2025 11:00 AM CDT Virtual Visit [address] [phone] Bindu Bueno, OD 909 [place], [place] [phone] Rubi Johnson, OT FV [address] [address] 07/15/2025 2:30 PM CDT Office Visit [facility] [address] [place] [address] Denise Woodson APRN [facility] [address] [place], [place] 4675568 07/16/2025 11:00 AM CDT Virtual Visit [address] [phone] Bindu Bueno, OD 909 [place], [place] 273895 Rubi Johnson, OT [address] [address] 07/23/2025 11:00 AM CONFIGURATION MANAGER Virtual Visit [address] [phone] Bindu Bueno, OD 909 [place], [place] 871725 Rubi Johnson, OT [address] [address] 08/03/2025 11:00 AM CONFIGURATION MANAGER Virtual Visit [address] [phone] BuenoBindu flores, OD 909 [place], [place] 249995 Rubi Johnson, OT [address] [address] 08/03/2025 4:30 PM CONFIGURATION MANAGER Virtual Visit [facility] [address] [phone] Any Joiner MD [address] [place] [address] 290685 08/17/2025 12:45 PM CONFIGURATION MANAGER Virtual Visit [address] [phone] Bindu Bueno, OD 909 [place], [place] 632965 Rubi Johnson, OT [address] [address] 10/04/2025 10:15 AM CONFIGURATION MANAGER Virtual Visit [facility] [address] [phone] Santa Menon, PAMani [address] [place] [address] 301295 01/19/2026 11:30 AM CDT Office Visit [facility] Clinic [address] [phone] Ranyd Maradiaga DO [address] [place] [address] 890095 documented as of this encounter Visit Diagnoses Not on filedocumented in this encounter Additional Health Concerns Infection Onset Date Last Indicated Resolved Time Rule Out COVID-19 09/13/2024 09/13/2024 09/13/2024 12:31 PM CONFIGURATION MANAGER Rule Out COVID-19 11/14/2024 11/14/2024 11/14/2024 8:25 PM CONFIGURATION MANAGER Assessment Noted Time PHQ-9 Depression Total Score: 5 08/03/20 24 12:49 PM CONFIGURATION MANAGER documented as of this encounter Care Teams Criminal Analyst Relationship Specialty Start Date End Date Winston Villatoro OD [address] [place] [address] PCP - Ophthalmology Ophthalmology 02/11/13 Denise Woodson APRN BRAKE REPAIR MECHANIC [address] [place] [address] PCP - General Family Practice 09/21/20 04/07/25 Randy Maradiaga DO [address] [place] [address] 621485 PCP - General Neurology 04/08/25 05/25/25 Denise Woodson APRN BRAKE REPAIR MECHANIC [address] [place] [address] PCP - General Family Practice 05/26/25 Denise Woodson APRN BRAKE REPAIR MECHANIC [address] [place] [address] Assigned PCP 07/17/20 Usha Simon APRN BRAKE REPAIR MECHANIC 909 [facility]121[place], [place] 111[address] Nurse Practitioner Neurological Surgery 01/24/24 Dangelo Salinas MD [address] [place], [place] [id number] Neurology 01/27/24 Anastasia Stearns, RN Lead Sealer Operator 02/06/24 12/17/24 Germaine Aleman, W Community Health Worker Primary Care - CC 02/18/2412/17/24 Joya Lira RPH [address] [place] [address] Pharmacist Pharmacist 05/25/24 Joya Lira RPH [address] [place] [address] Assigned MTM Pharmacist 06/08/24 Fabi Coates MD 420 [facility] 75 [place] [address] Genetics, Clinical 06/18/24 Danna Cardenas PA-C 6405 [place] [address] Assigned Heart and Vascular Provider 07/08/24 12/05/24 Arthur Salas LICSW [address] [address] Assigned Behavioral Health Provider 08/08/24 Randy Maradiaga DO [address] [place] [address] Assigned Neuroscience Provider 08/08/24 Tete Wang MD [address] [place] [address] 739164 Genetics, Clinical 10/30/24 Dahlia Joyce MD [address] [place] [address] 341445 Radiology Neuroradiology 11/17/24 Lisa Zambrano MD [address] [address] Assigned Heart and Vascular Provider 12/06/24 Tete Wang MD [address] [place] [address] 720994 Assigned Pediatric Specialist Provider 01/06/25 Any Joiner MD [address] [place] [address] 425495 Assigned Pulmonology Provider 02/05/25 Bindu Bueno AMELIE 909 [place] [address] Assigned Surgical Provider 03/08/25 fAtab Finn MD [address] [address] Dermatology 03/17/25 Aftab Finn MD 500 [place] [address] Assigned Dermatology Provider 04/07/25 Selena Mcfadden [place] Community Health Worker 05/25/2505/26 Red De Los Santos LSW Lead Sealer Operator Primary Care - CC 05/26/25 Santa Menon PANilesC [address] [place] [address] Physician Acute Care Physical Therapist Physical Medicine and Rehabilitation 02/25/25 Alessandra Pereira, RN Specialty Sealer Operator Neurological Surgery 06/02/25 documented as of this encounter
--- OUTSIDE RECORDS SUMMARY | 2025-07-07 18:19 | XMS_ITS | Encounter Summary ---
Author Organization [place] Address [address] [place] [address] Care Team Providers Care Windlace Machine Operator Name Role Phone Winston Villatoro Se OD Unavailable [phone] Denise Woodson APRN MARITIME OFFICER Unavailable [phone] Denise Woodson APRN MARITIME OFFICER Primary Care Provider Usha Simon APRN MARITIME OFFICER Unavailable + [phone] Dangelo Salinas MD Unavailable Anastasia Stearns RN Unavailable Germaine Aleman CHW Unavailable [phone] Lisa Zambrano MD Unavailable Raul Hoyos MD Unavailable Joya Lira [facility] Unavailable [phone] Joya Lira [facility] Unavailable [phone] Fabi Coates MD Unavailable [phone] Robin Zepeda MD Unavailable [phone] Danna Carednas PA-C Unavailable +[phone] Felicita Desai RN Unavailable Unavailab Arthur Rios ARRESTING GEAR OPERATOR Unavailable +[phone] Randy Maradiaga DO Unavailable + Tete Wang MD Unavailable Dahlia Joyce MD Unavailable [phone] Lisa Zambrano MD Unavailable + [phone] Tete Wang MD Unavailable [phone] Any Joiner MD Unavailable [phone] Myles Bindu OD Unavailable [phone] Aftab Finn MD Unavailable Randy Maradiaga DO Primary Care Prov ider Aftab Finn MD Unavailable Selena Mcfadden CHW Unavailable [phone] Denise Woodson APRN MARITIME OFFICER Primary Care Provider Red De Los Santos SHOVEL ENGINEER Unavailable [phone] Santa Menon PA-C Unavailable [phone] Alessandra Pereira RN Unavailable Encounter Details Date Type Department Care Team (Late st Contact Info) Description 05/21/2024 [facility] [place] [address] [address] Qing Valentine Social History Tobacco [...] How often do you attend taoist or judaism serv ices? Never 02/28/2024 Do [...] Score 2 05/05/2024 [facility] [place] of Occupat ional Health - Occupational Stress [...] on file Legal Sex Female 4:05 AM ADVERTISING REP Gender Identity Not on file Sexual [...] Description 07/09/2025 11:00 AM CDT Virtual Visit [address] [phone] Bindu Bueno, OD 909 [place] [address] Rubi Johnson, OT [address] [address] 07/15/2025 2:30 PM CDT Office Visit [facility] [address] [place] [address] Denise Woodson APRN [facility] [address] [place] [address] 07/16/2025 11:00 AM CDT Virtual Visit [address] [phone] Bindu Bueno, OD 909 [place], [place] 559485 [facility]i [facility], OT [facility] [address] [place] [address] 07/23/2025 11:00 AM ADVERTISING REP [facility] 150 [place] [phone] Bindu Bueno, OD 909 [place], [place] 6230[address] Rubi Johnson, OT [address] [address] 08/03/2025 11:00 AM ADVERTISING REP [facility] 150 [place] [phone] Bindu Bueno, OD 909 [place] [address] Rubi Johnson, OT [address] [address] 08/03/2025 4:30 PM ADVERTISING REP Virtual Visit [facility] [place] 909 [place] [phone] Any Joiner MD [address] [place] [address] 08/17/2025 12:45 PM ADVERTISING REP Virtual Visit [address] [phone] BuenoBindu flores, OD 9 [place], [place] [address] Rubi Johnson, OT [facility] [address] [address] 10/04/2025 10:15 AM ADVERTISING REP Virtual [facility] [address] [phone] Santa Menon, PA-C [address] [place] [address] [id number] 01/19/2026 11:30 AM CDT Office [facility] [address] [address] Randy Maradiaga, [address] [place] [address] 827645 documented as of this encounter Visit Diagnoses Not on filedocumented in this encounter Additional Health Concerns Infection Onset Date Last Indicated Resolved Time Rule Out COVID-19 09/13/2024 09/13/2024 09/13/2024 12:31 PM ADVERTISING REP Rule Out COVID-19 11/14/2024 11/14/2024 11/14/2024 8:25 PM ADVERTISING REP Assessment Noted Time PHQ-9 Depression Total Score: 5 03/17/20 24 9:45 AM CDT documented as of this encounter Care Teams Windlace Machine Operator Relationship Specialty Start Date End Date Winston Villatoro, OD [facility] [place] [address] [place] [address] PCP - Ophthalmology Ophthalmology 02/11/13 Denise Woodson APRN MARITIME OFFICER [address] [place] [address] PCP - General Family Practice 09/21/20 04/07/25 Ranyd Maradiaga DO 909 [place] [address] PCP - General Neurology 04/08/25 05/25/25 Denise Woodson APRN MARITIME OFFICER [address] [place] [address] PCP - General Family Practice 05/26/25 Denise Woodson APRN MARITIME OFFICER [address] [facility] [place] [address] Assigned PCP 07/17/20 Usha Simon APRN MARITIME OFFICER 909 [facility] [id number] [place] [address] Nurse Practitioner Neurological Surgery 01/24/24 Dangelo Salinas MD 1650 [facility] 200 [place] [address] Neurology 01/27/24 Anastasia Stearns, RN Lead Swimmer 02/06/24 12/17/24 Germaine Aleman, W Community Health Worker Primary Care - CC 02/18/2412/17/24 Lisa Zambrano MD [address] [place] [address] Assigned Heart and Vascular Provider 05/08/24 07/07/24 Raul Hoyos MD 9 [facility]121[address] [place] [address] Assigned Neuroscience Provider 05/08/24 07/07/24 Joya Lira [facility] [address] [place] [address] Pharmacist Pharmacist 05/25/24 Joya Lira [facility] [address] [place] [address] Assigned MTM Pharmacist 06/08/24 Fabi Coates MD [address] [place] [address] 75 [place] [address] Genetics, Clinical 06/18/24 Robin Zepeda MD [address] [place] [address]J [place] [address] Assigned Neuroscience Provider 07/08/24 08/07/24 Danna Cardenas PA-C 6405 [place] [address] Assigned Heart and Vascular Provider 07/08/24 12/05/24 Felicita Desai, RN Lead Swimmer 07/14/24 07/28/24 Arthur Salas, [facility] [address] [place] [address] Assigned Behavioral Health Provider 08/08/24 Randy Maradiaga DO [address] [place] [address] Assigned Neuroscience Provider 08/08/24 Tete Wang MD [address] [place] [address] Genetics, Clinical 10/30/24 Dahlia Joyce MD [address] [place] [address] Radiology Neuroradiology 11/17/24 [place] [address] [place] [address] [address] [place], [place] 174175 Assigned Heart and Vascular Provider 12/06/24 Tete Wang MD [address] [place] [address] Assigned Pediatric Specialist Provider 01/06/25 Any Joiner MD [address] [place] [address] 020335 Assigned Pulmonology Provider 02/05/25 Bindu Bueno OD [address] [place] [address] 071905 Assigned Surgical Provider 03/08/25 Aftab Finn MD [address] [address] Dermatology 03/17/25 Aftab Finn MD 500 [place] [address] Assigned Dermatology Provider 04/07/25 Selena Mcfadden, [facility] Community Health Worker 05/25/2505/26 Filiberto Red, OSEI Lead Swimmer Primary Care - CC 05/26/25 Santa Menon, PANilesC 909 [place] [address] Physician Long Chain Beamer Physical Medicine and Rehabilitation 02/25/25 Alessandra Pereira, GEMA Specialty Swimmer Neurological Surgery 06/02/25 documented as of this encounter
--- OUTSIDE RECORDS SUMMARY | 2025-07-07 18:19 | XMS_ITS | Encounter Summary ---
Author Organization [place] Address [address] [place] [address] Care Team Providers Care Mid Level Business Analyst Name Role Phone Yung Madrigal MD Unavailable Unavailable Winston Villatoro OD Unavailable [phone] Denise Woodson APRN SALES AND MARKETING ANALYST Unavailable [phone] Denise Woodson APRN SALES AND MARKETING ANALYST Primary Care Provider Usha Simon APRN SALES AND MARKETING ANALYST Unavailable Dangelo Salinas MD Unavailable Usha Simon APRN SALES AND MARKETING ANALYST Unavailable [phone] Anastasia Stearns RN Unavailable Germaine Aleman CHW Unavailable [phone] Robin Zepeda MD Unavailable [phone] Lisa Zambrano MD Unavailable Raul Hoyos MD Unavailable Joya Lira [facility] Unavailable [phone] Joya Lira RPJoleen Unavailable Fabi Coates MD Unavailable [phone] Robin Zepeda MD Unavailable [phone] Danna Cardenas PA-C Unavailable [phone] Felicita Desai RN Unavailable Unavailab le Arthur Salas PULL THROUGH HOOKER Unavailable [phone] Randy Maradiaga DO Unavailable + Tete Wang MD Unavailable [phone] Dahlia Joyce MD Unavailable [phone] Lisa Zambrano MD Unavailable + [phone] Tete Wang MD Unavailable [phone] Any Joiner MD Unavailable [phone] BuenoBindu OD Unavailable [phone] Aftab Finn MD Unavailable Randy Maradiaga DO Primary Care Prov ider Aftab Finn MD Unavailable Selena Mcfadden CHW Unavailable [phone] Denise Woodson APRN SALES AND MARKETING ANALYST Primary Care Provider Lesterjoe Red BASTER HAND Unavailable [phone] Santa Menon PA-C Unavailable [phone] Alessandra Pereira RN Unavailable Reason for Visit * Reason Comments Medication Refill Encounter Details Date Type Department Care Team (Late st Contact Info) Description 01/07/2023 Refill [facility] [address] [place] [address] Denise Woodson APRN SALES AND MARKETING ANALYST [address] [place] [address] Medication Refill Social History Tobacco [...] file Legal Sex Female 4:05 AM KEY ACCOUNT DIRECTOR Gender Identity Not on file Sexual [...] as final attempt to schedule. Karla Villafanamount Hydrometer Finisher * Telephone Encounter - Karla Morales - 01/17/2023 8:59 AM CDT LVM requesting a call back for an appt (physical). One more attempt will be made. Karla Gross Hydrometer Finisher * Telephone Encounter - Arianna Lo - 01/10/2023 3:33 PM CDT Sent [employer] message requesting a call back for an appt. Two more attempts will be made. Arianna Gross Hydrometer Finisher * Telephone Encounter - Leslie Mcclellan RN [...] 0 0 0 Leslie Mcclellan RN, BSN [facility] documented in this encounter Plan of Treatment Upcoming Encounters Date Type Department Care Team (Late st Contact Info) Description 07/09/2025 11:00 AM CDT Virtual Visit [address] [phone] Bindu Bueno, OD 909 [place], [place] [address] Rubi Johnson, OT [address] 271107 07/15/2025 2:30 PM CDT Office Visit [facility] [address] [place] [address] Denise Woodson APRN SALES AND MARKETING ANALYST [address] [place] [address] 07/16/2025 11:00 AM CDT Virtual Visit [address] [phone] Bindu Bueno, OD 909 [place], [place] [address] Rubi Johnson, OT [address] 217[address] 07/23/2025 11:00 AM KEY ACCOUNT DIRECTOR Virtual Visit [address] [phone] Bindu Bueno, OD 9[address] [place], [place] [address] Rubi Johnson, OT [address] 843287 08/03/2025 11:00 AM KEY ACCOUNT DIRECTOR Virtual Visit [address] [phone] Bindu Bueno, OD 909 [place] [address] Rubi Johnson, OT [address] [address] 08/03/2025 4:30 PM KEY ACCOUNT DIRECTOR [facility] [address] [phone] Any Joiner MD [address] [place] [address] 065905 08/17/2025 12:45 PM KEY ACCOUNT DIRECTOR Virtual Visit [address] [phone] Bindu Bueno, OD [address] [place] [address]8545 Rubi Johnson, OT [address] [address] 10/04/2025 10:15 AM KEY ACCOUNT DIRECTOR Virtual Visit [facility] [address] [place] [phone] Santa Menon, PA-C [address] [place] [address] 416525 01/19/2026 11:30 AM CDT Office Visit [facility] [address] [place] [phone] Randy Maradiaga DO [address] [place] [address] documented as of this encounter Visit Diagnoses Diagnosis Moderate persistent asthma without complication Unspecified asthma documented in this encounter Additional Health Concerns Infection Onset Date Last Indicated Resolved Time Rule Out COVID-19 09/13/2024 09/13/2024 09/13/2024 12:31 PM KEY ACCOUNT DIRECTOR Rule Out COVID-19 11/14/2024 11/14/2024 11/14/2024 8:25 PM KEY ACCOUNT DIRECTOR Assessment Noted Time PHQ-9 Depression Total Score: 0 06/23/20 21 4:11 PM CDT documented as of this encounter Care Teams Mid Level Business Analyst Relationship Specialty Start Date End Date Yung Madrigal MD RETIRED PCP - Orthopaedics Orthopedics 08/26/12 01/20/24 Winston Villatoro OD [facility] [address] [facility] [address] [place] [address] PCP - Ophthalmology Ophthalmology 02/11/13 Denise Woodson APRN SALES AND MARKETING ANALYST [address] [place] [address] PCP - General Family Practice 09/21/20 04/07/25 Randy Maradiaga DO [address] [place] [address] PCP - General Neurology 04/08/25 05/25/25 Denise Woodson APRN SALES AND MARKETING ANALYST [address] [place] [address] PCP - General Family Practice 05/26/25 Denise Woodson APRN SALES AND MARKETING ANALYST [address] [place] [address] Assigned PCP 07/17/20 Usha Simon APRN SALES AND MARKETING ANALYST [address] [address] Nurse Practitioner Neurological Surgery 01/24/24 Dangelo Salinas MD [address] [place] [address] Neurology 01/27/24 Usha Simon APRN SALES AND MARKETING ANALYST [address] [address] Assigned Neuroscience Provider 02/06/24 03/07/24 Anastasia Stearns, RN Lead Program Technician 02/06/24 12/17/24 Germaine Aleman, W Community Health Worker Primary Care - CC 02/18/2412/17/24 Robin Zepeda MD [address] [address] Assigned Neuroscience Provider 03/08/24 05/07/24 Lisa Zambrano MD [address] [place] [address] Assigned Heart and Vascular Provider 05/08/24 07/07/24 Raul Hoyos MD 909 [facility] [place] [address] Assigned Neuroscience Provider 05/08/24 07/07/24 Joya Lira [facility] [address] [place] [address] Pharmacist Pharmacist 05/25/24 Joya Lira [facility] [address] [place] [address] Assigned MTM Pharmacist 06/08/24 Fabi Coates MD [address] [place] [address] 75 [place] [address] Genetics, Clinical 06/18/24 Robin Zepeda MD 9 [facility] [place] [address] Assigned Neuroscience Provider 07/08/24 08/07/24 Danna Cardenas PA-C 6405 [place] [address] Assigned Heart and Vascular Provider 07/08/24 12/05/24 Felicita Desai RN Lead Program Technician 07/14/24 07/28/24 Arthur Salas, [facility] [address] [place] [address] Assigned Behavioral Health Provider 08/08/24 Randy Maradiaga DO [address] [place] [address] Assigned Neuroscience Provider 08/08/24 Tete Wang MD [address] [place] [address] 517554 Genetics, Clinical 10/30/24 Dahlia Joyce MD [address] [place] [address] Radiology Neuroradiology 11/17/24 [place] [address] [place] [address] [address] [place], [place] 105405 Assigned Heart and Vascular Provider 12/06/24 Tete Wang MD [address] [place] [address] 209844 Assigned Pediatric Specialist Provider 01/06/25 Any Joiner MD [address] [place] [address] 276 [place], [place] 806865 Assigned Pulmonology Provider 02/05/25 Bindu Bueno OD [address] [place] [address] 403525 Assigned Surgical Provider 03/08/25 Aftab Finn MD [address] 994560 Dermatology 03/17/25 Aftab Finn MD 500 [place] [address] Assigned Dermatology Provider 04/07/25 Selena Mcfadden, [facility] Community Health Worker 05/25/2505/26 Red De Los Santos LSW Lead Program Technician Primary Care - CC 05/26/25 Santa Menon, PANilesC 909 [place] [address] Physician Judge'S Clerk Physical Medicine and Rehabilitation 02/25/25 Alessandra Pereira, GEMA Specialty Program Technician Neurological Surgery 06/02/25 documented as of this encounter
--- OUTSIDE RECORDS SUMMARY | 2025-07-07 18:19 | XMS_ITS | Clinical Summary ---
Author Organization [facility] Address [address] [place] [address] Care Team Providers Care Cleaner And Dyer Name Role Phone None Reported, Pcp Primary Care Provider Unavail able Source Comments Patient records contain information from all sites at [facility]. For routine questions regarding patient records, call [phone] during business hours, M-F 8:00 AM - 5:00 PM Central Time. Record requests for emergency care only can be directed to [phone] at any time.[facility] [...] Encounters Date Type Department Care Team Description 04/20/2025 Orders Only [facility] PCP TH Darius Jiang M.D. Screening Mammogram Breast Cancer from Last 3 Months Immunizations Immunization Administration [...] drink = 0.6 oz pur e alcohol) [facility] Utilities Answer Date Recorded In the past 12 months has e electric, gas, oil, or water [employer] threatened to shut off services in your [...] your living situation today? I have a [facility] place to live 01/01/2025 Education Answer Date Recorded What is the highest level of school you have completed or the highest degree you have received? Associate degree: academic program 01/10/2023 Comments No Sex and Gender Information Value Date Recorded Sex Assigned at Female 02/11/2018 8:36 AM CDT Legal Sex Female 8:24 AM TRACK SUPERVISOR Gender Identity Female 02/11/2018 8:36 AM CDT [...] 03/16/2005 03/16/2004 Asthma Action Plan 02/27/2017 04/06/2016 Mammogram 07/30/2024 07/30/2023, 07/17, 05/01/2022 (Performed elsewhere), Additional history exists Asthma Control Test Questionnaire 02/12/2025 01/01/2025, 04/06/2016 Depression Monitoring (PHQ-9) 05/03/2025 01/01/2025 COVID-19 Vaccine (3 - season) 2025 07/07/2021, 11/20/2020 Influenza Vaccine (#1) 2025 2, 06/23/2021, 07/27/2020, Additional history exists Cologuard 10/28/2025 10/28/2022 Colorectal Cancer Screening 10/28/2025 Asthma Management/Exacerbation Questionnaire (AMQ/AEQ) 01/01/2026 01/01/2025 Fasting Glucose for Diabetes Screening 03/22/2028 03/22/2025, 03/11/2025, 01/05/2025, Additional history exists Lipid (Cholesterol) Screening 07/13/2029 07/13/2024, 05/15/2024, 07/27/2021, Additional history exists DTaP,Tdap,and Td Vaccines (3 - Td or Tdap) 01/04/2031 01/04/2021, 01/26/2011, 04/05/2003, Additional history exists Hepatitis B Vaccines Completed 03/03/2012, 11/07/2011, 10/04/2011 Depression Monitoring (PHQ-9 for quality tracking) Completed 01/01/2025, 01/01/2025 IPV Vaccines Aged Out No longer eligi ble based on patient's age to complete this topic Medical Devices Implanted Type Area Group Contract Analyst Device Identifier Shelf Expiration Date Model / Serial / Lot Mesh Or Patch Mesh or Patch Heart Description:Amplatzer Septal Occluder Asd Closure Device 34mm - Sanders [id number] Implanted:Qty: 1 on 06/20/2006 Septal Defect Occluder Device Other/Legacy - See Implant Description Description:Device [facility]. Device Status Text - [id number]. Procedures Procedure Name Priority Date/Time Associated Diagnosis Comments BASIC METABOLIC PANEL, S/P STAT 01/05/2025 9:37 AM CDT BI BREAST SCREENING BILATERAL WITH TOMOSYNTHESIS RAD - Routine (most inpatients and all outpatients) 07/30/2023 2:38 PM TRACK SUPERVISOR Screening Mammogram Breast Cancer COLOGUARD Routine 10/28/2022 5:54 PM TRACK SUPERVISOR Screening Cancer Colon LIPID PANEL, S Routine 02/13/2018 6:56 AM CDT Lizy Danlos Syndrome Chronic Obstructive Pulmonary Disease (HCC) Defect Atrial Septal (HCC) from Last 3 Months or Most Recently Relevant to Health Maintenance Results * Basic Metabolic Panel (01/05/2025 9:37 AM [...] P.A.-C. LAB BLOOD ADD-ON Final Re sult [facility] [address] [place] [address], [facility] [address] [place] [address] * BI Breast Screening Bilateral with Tomosynthesis (07/30/2023 2:38 PM TRACK SUPERVISOR) Anatomical Region Laterality Modality Breast, Breast Imaging RST L OS, Breast Imaging ARZ LOS, Breast Imaging FLA LOS Bilateral Mammography 08/01/2023 12:2 8 PM TRACK SUPERVISOR Impressions 08/01/2023 12:33 PM TRACK SUPERVISOR Negative. RECOMMENDATION: Annual Screening Mammogram ASSESSMENT: BI-RADS: 1: Negative. Narrative 08/01/2023 12:33 PM TRACK SUPERVISOR EXAM: BI BREAST SCREENING BILATERAL WITH TOMOSYNTHESIS [...] ASSESSMENT: BI-RADS: 1: Negative. Darius Shaw M.D. [facility] BI PROCEDURES Final R esult * Cologuard-Sent Out Lab (10/28/2022 5:54 PM TRACK SUPERVISOR) Result Negative Negative 11/03/2022 2:48 AM TRACK SUPERVISOR EXLI Comment: NEGATIVE TEST RESULT. A negative [...] (Yenny Adkins al, N Engl J Med 2014;370(14):3872-9363) The normal value (reference range) for this assay is negative. COLOGUARD RE-SCREENING RECOMMENDATION: Periodic colorectal cancer screening is an important part of preventive healthcare for asymptomatic individuals at average risk for colorectal cancer. Following a negative Cologuard result, the [employer] Cancer Society and U.S. Multi-Society Task Force screening guidelines recommend a Cologuard re-screening interval of 3 years. References: [employer] Cancer Society Guideline for Colorectal Cancer Screening: https://www.cancer.org/cancer/mjdls-kvqerz-vaqdvr/detection- diagnosis-staging/acs-recommendations.html.; Ming DK, Barbra TREJO, Erna SimsK, Colorectal Cancer Screening: Recommendations for Physicians and Patients from the U.S. Multi-Society Task Force on Colorectal Cancer Screening , Am J Gastroenterology 2017; 112:5884-1581. TEST DESCRIPTION: Composite algorithmic analysis of stool [...] (Yenny Adkins al, N Engl J Med 2014;370(14):0849-8762.) Cologuard may produce a false negative or false positive result (no colorectal cancer or precancerous polyp present at colonoscopy follow up). A negative Cologuard test result does not guarantee the absence of CRC or advanced adenoma (pre-cancer). The current Cologuard screening interval is every 3 years. ([employer]es Cancer Society and U.S. Multi-Society Task Force). Cologuard performance data in a 10,000 patient pivotal study using colonoscopy as the reference method can be accessed at the following location: www.[employer]/results. Additional description of the Cologuard test process, warnings and precautions can be found at www.[employer].com. Stool (Stool) 10/28/2022 5:5 4 PM TRACK SUPERVISOR 10/30/2022 1:57 PM TRACK SUPERVISOR us Darius Shaw M.D. LAB BODY FLUIDS AND STOOL S ORDERABLES Final Result [employer] [address] [place] [address] [employer] [address] [place] [address], [address] [place] [address] * (ABNORMAL) Lipid Panel (02/13/2018 6:56 AM [...] Mcgowan M.D. LAB BLOOD ADD-ON Final Result [facility] [address] from Last 3 Months or Most Recently Relevant to Health Maintenance Insurance [facility] Advance Directives For more information, please contact: [phone] * Full Code (Latest Code Status on File) Date Activated Date Inactivated Comments 09/30/2022 4:41 PM 10/02/2022 6:08 PM Question Answer Comments Full Code: Discussed Care Teams Cleaner And Dyer Relationship Specialty Start Date End Date None Reported, Pcp PCP - General Family Medicine 06/28/25
--- OUTSIDE RECORDS SUMMARY | 2025-07-07 18:19 | XMS_ITS | Encounter Summary ---
Author Organization [facility] Address [address] [place] [address] Care Team Providers Care Executive Relations Specialist Name Role Phone Winston Villatoro Se OD Unavailable +[phone] Denise Woodson APRN CYLINDER TESTER Unavailable +[phone] Denise Woodson APRN CYLINDER TESTER Primary Care Provider Usha Simon APRN CYLINDER TESTER Unavailable + [phone] Dangelo Salinas MD Unavailable Anastasia Stearns RN Unavailable +[phone] Germaine Aleman CHW Unavailable +[phone] Lisa Zambrano MD Unavailable Raul Hoyos MD Unavailable Joya Lira [facility] Unavailable +[phone] Joya Lira [facility] Unavailable +[phone] Fabi Coates MD Unavailable [phone] Robin Zepeda MD Unavailable +[phone] Danna Cardenas PA-C Unavailable +[phone] Felicita Desai RN Unavailable Unavailab Arthur Rios HAND STONECUTTER Unavailable +[phone] Randy Maradiaga DO Unavailable + Tete Wang MD Unavailable Dahlia Joyce MD Unavailable [phone] Lisa Zambrano MD Unavailable + [phone] Tete Wang MD Unavailable +[phone] Any Joiner MD Unavailable +[phone] BuenoBindu flores OD Unavailable +[phone] Aftab Finn MD Unavailable Randy Maradiaga DO Primary Care Prov ider Aftab Finn MD Unavailable Selena Mcfadden CHW Unavailable [phone] Denise Woodson APRN CYLINDER TESTER Primary Care Provider Red De Los Santos MACHINE RIVETER Unavailable [phone] Santa Menon PA-C Unavailable +[phone] Alessandra Pereira RN Unavailable Encounter Details Date Type Department Care Team (Late st Contact Info) Description 05/11/2024 [facility] [address] [place] [address] Denise Woodson APRN CYLINDER TESTER [address] [place] [address] Social History Tobacco Use Types [...] How often do you attend hindu or taoist serv ices? 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 Qing Copeland Lead Biostatistics Manager [facility] Phoebe Gross documented in this encounter Plan of Treatment Upcoming Encounters Date Type Department Care Team (Late st Contact Info) Description 07/09/2025 11:00 AM CDT Virtual Visit [facility] [address] [place] [phone] BuenoBindu flores, OD 909 [place], [place] [address]48795 Rubi Johnson, OT [facility] 150 [place] [address] 07/15/2025 2:30 PM CDT Office Visit [facility] [address] [place] [address] Denise Woodson APRN CYLINDER TESTER [address] [place], [place] 1057768 07/16/2025 11:00 AM CDT [facility] [address] [place] [phone] MylesBindu, OD 909 [place], [place] 211285 Rubi Johnson, OT [address] 521607 07/23/2025 11:00 AM VEGETABLE FARMING SUPERVISOR [facility] [address] [place] [address] MylesBindu, OD 909 [place], [place] 156165 Rubi Johnson, OT [facility] [address] [place], [place] [address]797 08/03/2025 11:00 AM VEGETABLE FARMING SUPERVISOR Virtual Visit [facility] [address] [place] [phone] Bindu Bueno, OD 909 [place], [place] 805[address] Rubi Johnson, OT [address] [address] 08/03/2025 4:30 PM VEGETABLE FARMING SUPERVISOR Virtual Visit [facility] [address] [phone] Any Joiner MD [address] [place] [address] 920555 08/17/2025 12:45 PM VEGETABLE FARMING SUPERVISOR [facility] [address] [place] [address] Bindu Bueno, OD 909 [place], [place] 433005 Rubi Johnson, OT [address] [address] 10/04/2025 10:15 AM VEGETABLE FARMING SUPERVISOR Virtual Visit [facility] [address] [phone] Santa Menon PANilesC [address] [place] [address] 270125 01/19/2026 11:30 AM CDT Office Visit [facility] Neurology Clinic [address] [address] Randy Maradiaga DO 909 [place] [address] documented as of this encounter Visit Diagnoses Not on filedocumented in this encounter Additional Health Concerns Infection Onset Date Last Indicated Resolved Time Rule Out COVID-19 09/13/2024 09/13/2024 09/13/2024 12:31 PM VEGETABLE FARMING SUPERVISOR Rule Out COVID-19 11/14/2024 11/14/2024 11/14/2024 8:25 PM VEGETABLE FARMING SUPERVISOR Assessment Noted Time PHQ-9 Depression Total Score: 5 03/17/20 24 9:45 AM CDT documented as of this encounter Care Teams Executive Relations Specialist Relationship Specialty Start Date End Date Winston Villatoro OD [facility] [place] [address] [place] [address] PCP - Ophthalmology Ophthalmology 02/11/13 Denise Woodson APRN CYLINDER TESTER [address] [address] [place] [address] PCP - General Family Practice 09/21/20 04/07/25 Randy Maradiaga DO 909 [place] [address] PCP - General Neurology 04/08/25 05/25/25 Denise Woodson APRN CYLINDER TESTER [address] [address] [address] PCP - General Family Practice 05/26/25 Denise Woodson APRN CYLINDER TESTER [address] [place] [address] Assigned PCP 07/17/20 Usha Simon APRN CYLINDER TESTER 909 [facility]121CJ [place] [address] Nurse Practitioner Neurological Surgery 01/24/24 Dangelo Salinas MD [address] [place] [address] Neurology 01/27/24 Anastasia Stearns, RN Lead Liquor Grinder Mill Operator 02/06/24 12/17/24 Germaine Aleman, W Community Health Worker Primary Care - CC 02/18/2412/17/24 Lisa Zambrano MD [address] [place] [address] Assigned Heart and Vascular Provider 05/08/24 07/07/24 Raul Hoyos MD 909 [facility]121CJ [place] [address] Assigned Neuroscience Provider 05/08/24 07/07/24 Joya Lira Jole[facility] [address] [place] [address] Pharmacist Pharmacist 05/25/24 Joya Lira [facility] [address] [place] [address] Assigned MTM Pharmacist 06/08/24 Fabi Coates MD [address] [facility] [address] [place] [address] Genetics, Clinical 06/18/24 Robin Zepeda MD [address] [place] [address] [id number] [place] [address] Assigned Neuroscience Provider 07/08/24 08/07/24 Danna Cardenas PA-C 6405 [place] [address] Assigned Heart and Vascular Provider 07/08/24 12/05/24 Felicita Desai, RN Lead Liquor Grinder Mill Operator 07/14/24 07/28/[address] [facility] [address] [place] [address] Assigned Behavioral Health Provider 08/08/24 Randy Maradiaga DO [address] [place] [address] Assigned Neuroscience Provider 08/08/24 Tete Wang MD [address] [place] [address] Genetics, Clinical 10/30/24 Dahlia Joyce MD [address] [place] [address] Radiology Neuroradiology 11/17/24 Lisa Zambrano MD [address] [address] Assigned Heart and Vascular Provider 12/06/24 Tete Wang MD [address] [place] [address] Assigned Pediatric Specialist Provider 01/06/25 Any Joiner MD [address] [place] [address] 150125 Assigned Pulmonology Provider 02/05/25 Myles BinduAMELIE [address] [place] [address] 364785 Assigned Surgical Provider 03/08/25 Aftab Finn MD [address] [address] Dermatology 03/17/25 Aftab Finn MD 500 [place] [address] Assigned Dermatology Provider 04/07/25 Selena Mcfadden, [facility] Community Health Worker 05/25/2505/26 Red De Los Santos LSW Lead Liquor Grinder Mill Operator Primary Care - CC 05/26/25 Santa Menon, PA-C [address] [place] [address] Physician Switch Box Installer Physical Medicine and Rehabilitation 02/25/25 Alessandra Pereira, RN Specialty Liquor Grinder Mill Operator Neurological Surgery 06/02/25 documented as of this encounter
--- OUTSIDE RECORDS SUMMARY | 2025-07-07 18:19 | XMS_ITS | Encounter Summary ---
Author Organization [facility] Address [address] [place] [address] Care Team Providers Care Composite Boat Builder Name Role Phone Winston Villatoro OD Unavailable [phone] Denise Woodson APRN NATURAL SCIENCES DEPARTMENT CHAIR Unavailable [phone] Denise Woodson APRN NATURAL SCIENCES DEPARTMENT CHAIR Primary Care Provider Usha Simon APRN NATURAL SCIENCES DEPARTMENT CHAIR Unavailable + [phone] Dangelo Salinas MD Unavailable Joya Lira RP Unavailable +[phone] Joya Lira [facility] Unavailable +[phone] Fabi Coates MD Unavailable [phone] Sinyigaya, Specmadi ART OBJECTS SUPERVISOR Unavailable +[phone] Randy Maradiaga DO Unavailable + Tete Wang MD Unavailable +[phone] Dahlia Joyce MD Unavailable [phone] Lisa Zambrano MD Unavailable + [phone] Tete Wang MD Unavailable +[phone] Any Joiner MD Unavailable +[phone] Bindu Bueno OD Unavailable +[phone] Aftab Finn MD Unavailable Randy Maradiaga DO Primary Care Prov ider Aftab Finn MD Unavailable Selena Mcfadden CHW Unavailable [phone] Chintan Denise BARRERA NATURAL SCIENCES DEPARTMENT CHAIR Primary Care Provider Red De Los Santos CHIP DRIER Unavailable [phone] Santa Menon PA-C Unavailable +[phone] Alessandra Pereira RN Unavailable Encounter Details Date Type Department Care Team (Late st Contact Info) Description 04/02/2025 MyC Medical Advice [facility] [address] [place] [address] Hansa Gregory MD [address] [place] [address] Social History Tobacco Use Types Packs/Day [...] PHQ-2 Answer Date Recorded PHQ-2 Score 4 03/16/2025 [facility] [place] of Occupat ional Health - Occupational Stress [...] file Legal Sex Female 4:05 AM CAMPUS MONITOR Gender Identity Not on file Sexual Orientation Not on file 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 documented in this encounter Plan of Treatment Upcoming Encounters Date Type Department Care Team (Late st Contact Info) Description 07/09/2025 11:00 AM CDT Virtual Visit [address] [phone] Bindu Bueno, OD 909 [place] [address] Rubi Johnson, OT F[facility] [address] [id number] 07/15/2025 2:30 PM CDT Office Visit [facility] [address] [place] [address] Denise Woodson, PIPE FITTINGS MOLDER NATURAL SCIENCES DEPARTMENT CHAIR [address] [place] [address] 07/16/2025 11:00 AM CDT Virtual Visit [address] [phone] Bindu Bueno, OD 909 [place], [place] [phone] Rubi Johnson, OT [address] [id number] 07/23/2025 11:00 AM CAMPUS MONITOR Virtual Visit [address] [phone] Bindu Bueno, OD 909 [place], [place] 596325 Rubi Johnson, OT [address] [address] 08/03/2025 11:00 AM CAMPUS MONITOR Virtual Visit [address] [phone] Bindu Bueno, OD 909 [place], [place] 090285 Rubi Johnson, OT [address] 086407 08/03/2025 4:30 PM CAMPUS MONITOR Virtual Visit [facility] for [facility] Health Clinic [address] [phone] Any Joiner MD [address] [place] [address] 140215 08/17/2025 12:45 PM CAMPUS MONITOR Virtual Visit [address] [phone] Bindu Bueno, OD 909 [place], [place] 321575 Rubi Johnson, OT [address] 875097 10/04/2025 10:15 AM CAMPUS MONITOR Virtual Visit [facility] [address] [phone] Santa Menon PA-C [address] [place] [address] 182665 01/19/2026 11:30 AM CDT Office Visit [facility] [address] [phone] Randy Maradiaga DO [address] [place] [address] 166705 documented as of this encounter Visit Diagnoses Not on filedocumented in this encounter Additional Health Concerns Assessment Noted Time PHQ-9 Depression Total Score: 13 025 10:29 AM CDT documented as of this encounter Care Teams Composite Boat Builder Relationship Specialty Start Date End Date Winston Villatoro OD [facility] [address] [facility] [address] [place] [address] PCP - Ophthalmology Ophthalmology 02/11/13 Denise Woodson APRN NATURAL SCIENCES DEPARTMENT CHAIR [address] [place] [address] PCP - General Family Practice 09/21/20 04/07/25 Randy Maradiaga DO [address] [place] [address] PCP - General Neurology 04/08/25 05/25/25 Denise Woodson APRN NATURAL SCIENCES DEPARTMENT CHAIR [address] [place] [address] PCP - General Family Practice 05/26/25 Denise Woodson APRN NATURAL SCIENCES DEPARTMENT CHAIR [address] [facility] [place] [address] Assigned PCP 07/17/20 Usha Simon APRN NATURAL SCIENCES DEPARTMENT CHAIR 909 [facility] [id number] [place], [place] 119055 Nurse Practitioner Neurological Surgery 01/24/24 Dangelo Salinas MD [address] [place] [address] Neurology 01/27/24 Joay Lira [facility] [address] [place] [address] Pharmacist Pharmacist 05/25/24 Joya Lira [facility] [address] [place], [place] 57212406 Assigned MTM Pharmacist 06/08/24 Fabi Coates MD [address] [place] [address] 75 [place], [place] 618905 Genetics, Clinical 06/18/24 Arthur Salas [facility] [address] [place] [address] Assigned Behavioral Health Provider 08/08/24 Randy Maradiaga DO 909 [place] [address] Assigned Neuroscience Provider 08/08/24 Tete Wang MD [address] [place] [address] Genetics, Clinical 10/30/24 Dahlia Joyce MD [address] [place] [address] Radiology Neuroradiology 11/17/24 [place] [address] [place] [address] [address] [place] [address] Assigned Heart and Vascular Provider 12/06/24 Tete Wang MD [address] [place] [address] Assigned Pediatric Specialist Provider 01/06/25 Any Joiner MD [address] [place] [address] 045755 Assigned Pulmonology Provider 02/05/25 Bindu Bueno [place] [address] [place] [address] Assigned Surgical Provider 03/08/25 Aftab Finn MD [address] [address] Dermatology 03/17/25 Aftab Finn MD [address] [place] [address] Assigned Dermatology Provider 04/07/25 Selena Mcfadden, [place] Community Health Worker 05/25/2505/26 Red De Los Santos LSW Lead Slab Installer Primary Care - CC 05/26/25 Santa Menon, PANilesC 9 [place] [address] Physician Medical Records Analyst Physical Medicine and Rehabilitation 02/25/25 Alessandra Pereira RN Specialty Slab Installer Neurological Surgery 06/02/25 documented as of this encounter
--- OUTSIDE RECORDS SUMMARY | 2025-07-07 18:19 | XMS_ITS | Encounter Summary ---
Author Organization [facility] Address [address] [place] [address] Care Team Providers Care Clock Mechanic Name Role Phone Winston Villatoro Se OD Unavailable [phone] Denise Woodson APRN FILM OR TAPE LIBRARIAN Unavailable [phone] Denise Woodson APRN FILM OR TAPE LIBRARIAN Primary Care Provider Usha Simon APRN FILM OR TAPE LIBRARIAN Unavailable + [phone] Dangelo Salinas MD Unavailable Anastasia Stearns RN Unavailable [phone] Germaine Aleman CHW Unavailable +[phone] Lisa Zambrano MD Unavailable Raul Hoyos MD Unavailable Joya Lira [facility] Unavailable [phone] Joya Lira [facility] Unavailable +[phone] Fabi Coates MD Unavailable [phone] Robin Zepeda MD Unavailable [phone] Danna Cardenas PA-C Unavailable +[phone] Felicita Desai RN Unavailable Unavailab Arthur Rios ENGAGEMENT MANAGER Unavailable [phone] Randy Maradiaga DO Unavailable + Tete Wang MD Unavailable Dahlia Joyce MD Unavailable [phone] Lisa Zambrano MD Unavailable + [phone] Tete Wang MD Unavailable [phone] Any Joiner MD Unavailable [phone] Bueno Bindu OD Unavailable [phone] Aftab Finn MD Unavailable Randy Maradiaga DO Primary Care Prov ider Aftab Finn MD Unavailable Selena Mcfadden CHW Unavailable [phone] Denise Woodson APRN FILM OR TAPE LIBRARIAN Primary Care Provider Red De Los Santos NUMERICAL CONTROL MACHINE OPERATOR Unavailable [phone] Santa Menon PA-C Unavailable [phone] Alessandra Pereira RN Unavailable Encounter Details Date Type Department Care Team (Late st Contact Info) Description 05/27/2024 MyC Medical Advice [facility] [address] [facility], [address] [place] [address] Rohit Barcenas MD [address] [place] [address] 295 [place] [address] Social History Tobacco Use Types [...] How often do you attend denominational or sikh serv ices? 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 Not on file Not on file Not on file Not on file Not on file Not on file documented as of this encounter Plan of Treatment Upcoming Encounters Date Type Department Care Team (Late st Contact Info) Description 07/09/2025 11:00 AM CDT Virtual Visit [address] [phone] Bindu Bueno, OD 909 [place] [address] Rubi Johnson, OT [address] [address] 07/15/2025 2:30 PM CDT Office Visit [facility] [address] [place] [phone] Denise Woodson APRN [facility] [address] [place], [place] 0564068 07/16/2025 11:00 AM CDT Virtual Visit [address] [phone] Bindu Bueno, OD 909 [place] [address] Rubi Johnson, OT [address] [address] 07/23/2025 11:00 AM SECTION SUPERVISOR Virtual Visit [address] [phone] Bindu Bueno, OD 909 [place] [address] Rubi Johnson, OT [address] [address] 08/03/2025 11:00 AM SECTION SUPERVISOR Virtual Visit [address] [phone] Bindu Bueno, OD 909 [place] [address] Rubi Johnson, OT [address] [address] 08/03/2025 4:30 PM SECTION SUPERVISOR Virtual Visit [facility] for [facility] Health [address] [phone] Any Joiner MD [address] [place] [address] 687655 08/17/2025 12:45 PM SECTION SUPERVISOR Virtual Visit [facility] [address] [phone] Bindu Bueno, OD [address] [place] [address] 725865 Rubi Johnson, OT FV [address] 862667 10/04/2025 10:15 AM SECTION SUPERVISOR Virtual Visit [facility] [address] [phone] Santa Menon, PANilesC [address] [place] [address] 980165 01/19/2026 11:30 AM CDT Office Visit [facility] [address] [phone] Randy Maradiaga, [address] [place] [address] 489865 documented as of this encounter Visit Diagnoses Not on filedocumented in this encounter Additional Health Concerns Infection Onset Date Last Indicated Resolved Time Rule Out COVID-19 09/13/2024 09/13/2024 09/13/2024 12:31 PM SECTION SUPERVISOR Rule Out COVID-19 11/14/2024 11/14/2024 11/14/2024 8:25 PM SECTION SUPERVISOR Assessment Noted Time PHQ-9 Depression Total Score: 5 03/17/20 9:45 AM CDT documented as of this encounter Care Teams Clock Mechanic Relationship Specialty Start Date End Date Winston Villatoro, OD [facility] [place] [address] [place] [address] PCP - Ophthalmology Ophthalmology 02/11/13 Denise Woodson APRN FILM OR TAPE LIBRARIAN [address] [address] [address] PCP - General Family Practice 09/21/20 04/07/25 Randy Maradiaga DO 909 [place], [place] 118795 PCP - General Neurology 04/08/25 05/25/25 Denise Woodson APRN FILM OR TAPE LIBRARIAN [address] [address] [address] PCP - General Family Practice 05/26/25 Denise Woodson APRN FILM OR TAPE LIBRARIAN [address] [address] [address] Assigned PCP 07/17/20 Usha Simon APRN FILM OR TAPE LIBRARIAN 909 [id number] [place], [place] 238565 Nurse Practitioner Neurological Surgery 01/24/24 Dangelo Salinas MD [address] [place] [address] Neurology 01/27/24 Anastasia Stearns, RN Lead Steel Post Installer Supervisor 02/06/24 12/17/24 Germaine Aleman, W Community Health Worker Primary Care - CC 02/18/2412/17/24 Lisa Zambrano MD [address] [place] [address] Assigned Heart and Vascular Provider 05/08/24 07/07/24 Raul Hoyos MD [address] [id number] [place] [address] Assigned Neuroscience Provider 05/08/24 07/07/24 Joya Lira [facility] [address] [place] [address] Pharmacist Pharmacist 05/25/24 Joya Lira [facility] [address] [place] [address] Assigned MTM Pharmacist 06/08/24 Fabi Coates MD [address] [place] [address] 75 [place] [address] Genetics, Clinical 06/18/24 Robin Zepeda MD [address] [facility] [id number] [place] [address] Assigned Neuroscience Provider 07/08/24 08/07/24 Danna Cardenas PA-C [address] [place] [address] Assigned Heart and Vascular Provider 07/08/24 12/05/24 Felicita Desai, GEMA Lead Steel Post Installer Supervisor 07/14/24 07/28/24 Arthur Salas [facility] [address] [address] Assigned Behavioral Health Provider 08/08/24 Randy Maradiaga DO [address] [place] [address] Assigned Neuroscience Provider 08/08/24 Tete Wang MD [address] [place] [address] Genetics, Clinical 10/30/24 Dahlia Joyce MD [address] [place] [address] Radiology Neuroradiology 11/17/24 Lisa Zambrano MD [address] [place] [address] 565295 Assigned Heart and Vascular Provider 12/06/24 Tete Wang MD [address] [place] [address] Assigned Pediatric Specialist Provider 01/06/25 Any Joiner MD [address] [place] [address] 427525 Assigned Pulmonology Provider 02/05/25 Bindu Bueno OD [address] [place] [address] 167885 Assigned Surgical Provider 03/08/25 Aftab Finn MD [address] 433870 Dermatology 03/17/25 Aftab Finn MD [address] [place] [address] 230135 Assigned Dermatology Provider 04/07/25 Selena Mcfadden, W Community Health Worker 05/25/2505/26 Red De Los Santos LSW Lead Steel Post Installer Supervisor Primary Care - CC 05/26/25 Santa Menon, PANilesC [address] [place] [address] Physician Flotation Tender Physical Medicine and Rehabilitation 02/25/25 Alessandra Pereira, RN Specialty Steel Post Installer Supervisor Neurological Surgery 06/02/25 documented as of this encounter
--- OUTSIDE RECORDS SUMMARY | 2025-07-07 18:19 | XMS_ITS | Encounter Summary ---
Author Organization [place] Address [address] [place] [address] Care Team Providers Care Dimensional Inspector Name Role Phone Winston Villatoro Se OD Unavailable +[phone] Denise Woodson APRN MEALS ON WHEELS DRIVER Unavailable [phone] Denise Woodson APRN MEALS ON WHEELS DRIVER Primary Care Provider Usha Simon APRN MEALS ON WHEELS DRIVER Unavailable + [phone] Dangelo Salinas MD Unavailable Anastasia Stearns RN Unavailable Germaine Aleman CHW Unavailable +[phone] Lisa Zambrano MD Unavailable Raul Hoyos MD Unavailable [phone] Joya Lira [facility] Unavailable +[phone] Joya Lira [facility] Unavailable +[phone] Fabi Coates MD Unavailable [phone] Robin Zepeda MD Unavailable +[phone] Danna Cardenas PA-C Unavailable +[phone] Felicita Desai RN Unavailable Unavailab Arthur Rios OFFICE WORKER Unavailable +[phone] Randy Maradiaga DO Unavailable + Tete Wang MD Unavailable Dahlia Joyce MD Unavailable [phone] Lisa Zambrano MD Unavailable + [phone] Tete Wang MD Unavailable +[phone] Any Joiner MD Unavailable [phone] BuenoBindu flores OD Unavailable +[phone] Aftab Finn MD Unavailable Randy Maradiaga DO Primary Care Prov ider Aftab Finn MD Unavailable Selena Mcfadden CHW Unavailable [phone] Denise Woodson APRN MEALS ON WHEELS DRIVER Primary Care Provider Red De Los Santos OVEREDGE SEWER Unavailable [phone] Santa Menon PA-C Unavailable +[phone] Alessandra Pereira RN Unavailable Encounter Details Date Type Department Care Team (Late st Contact Info) Description 06/28/2024 [facility] Medical [facility] [address] [place] [address] Denise Woodson APRN MEALS ON WHEELS DRIVER [address] [place] [address] Social History Tobacco Use Types [...] How often do you attend mormonism or scientologist serv ices? Never 02/28/2024 Do [...] Answer Date Recorded PHQ-2 Score 2 07/02/2024 [facility] of Occupat ional Health - [...] on file Legal Sex Female 4:05 AM ROOFING PLANT SUPERVISOR Gender Identity Not on file [...] dose. Pharmacy T'd up. CHELSEY Luke, RN [facility] 07/02/2024 at 9:48 AM * Telephone [...] to provider to advise. Qing Copeland Lead Souvenir Street Vendor [facility] documented in this encounter Plan of Treatment Upcoming Encounters Date Type Department Care Team (Late st Contact Info) Description 07/09/2025 11:00 AM CDT Virtual Visit [address] [phone] Bindu Bueno, OD 909 [place], [place] 398875 Rubi Johnson, OT [facility] [address] 787177 07/15/2025 2:30 PM CDT Office Visit [facility] [address] [place] [address] Denise Woodson APRN MEALS ON WHEELS DRIVER [address] [place], [place] 8856368 07/16/2025 11:00 AM CDT Virtual Visit [address] [phone] Bindu Bueno, OD 909 [place], [place] 130395 Rubi Johnson, OT F[facility] [address] 716[address] 07/23/2025 11:00 AM ROOFING PLANT SUPERVISOR Virtual [facility] 150 [place] [phone] Bindu Bueno, OD 909 [place] [address] Rubi Johnson, OT [facility] 150 [place] [address] 08/03/2025 11:00 AM ROOFING PLANT SUPERVISOR Virtual Visit [facility] 150 [place] [phone] Bindu Bueno, OD 9 [place] [address] Rubi Johnson, OT [address] [address] 08/03/2025 4:30 PM ROOFING PLANT SUPERVISOR Virtual Visit [facility] [address] [phone] Any Joiner MD [address] 095085 08/17/2025 12:45 PM ROOFING PLANT SUPERVISOR Virtual Visit [address] [phone] Bindu Bueno, OD 909 [place], [place] 451855 Rubi Johnson, OT [address] [address] 10/04/2025 10:15 AM ROOFING PLANT SUPERVISOR Virtual Visit [facility] [address] [address] Santa Menon PA-C [address] [place] [address] 498835 01/19/2026 11:30 AM CDT Office Visit [facility] Neurology Clinic [address] [address] Randy Maradiaga DO [address] [place] [address] 820645 documented as of this encounter Visit Diagnoses Not on filedocumented in this encounter Additional Health Concerns Infection Onset Date Last Indicated Resolved Time Rule Out COVID-19 09/13/2024 09/13/2024 09/13/2024 12:31 PM ROOFING PLANT SUPERVISOR Rule Out COVID-19 11/14/2024 11/14/2024 11/14/2024 8:25 PM ROOFING PLANT SUPERVISOR Assessment Noted Time PHQ-9 Depression Total Score: 5 03/17/20 24 9:45 AM CDT documented as of this encounter Care Teams Dimensional Inspector Relationship Specialty Start Date End Date Winston Villatoro OD [facility] [address] [place] [address] PCP - Ophthalmology Ophthalmology 02/11/13 Denise Woodson APRN MEALS ON WHEELS DRIVER [address] [place] [address] PCP - General Family Practice 09/21/20 04/07/25 Randy Maradiaga DO [address] [place] [address] PCP - General Neurology 04/08/25 05/25/25 Denise Woodson APRN MEALS ON WHEELS DRIVER [address] [place] [address] PCP - General Family Practice 05/26/25 Denise Woodson APRN MEALS ON WHEELS DRIVER [address] [place] [address] Assigned PCP 07/17/20 Usha Simon APRN MEALS ON WHEELS DRIVER [address] [address] Nurse Practitioner Neurological Surgery 01/24/24 Dangelo Salinas MD [address] [place] [address] Neurology 01/27/24 Anastasia Stearns, RN Lead Enterprise Infrastructure Architect 02/06/24 12/17/24 Germaine Aleman, W Community Health Worker Primary Care - CC 02/18/2412/17/24 Lisa Zambrano MD 6405 [facility] [address] [place] [address] Assigned Heart and Vascular Provider 05/08/24 07/07/24 Raul Hoyos MD [address] [address] Assigned Neuroscience Provider 05/08/24 07/07/24 Joya Lira RPH [address] [place], [place] [phone] Pharmacist Pharmacist 05/25/24 Joya Lira [facility] [address] [place] [address] Assigned MTM Pharmacist 06/08/24 Fabi Coates MD 420 [facility] 75 [place] [address] Genetics, Clinical 06/18/24 Robin Zepeda MD [address] [place] [address] [id number] [place], [place] 638195 Assigned Neuroscience Provider 07/08/24 08/07/24 Danna Cardenas PA-C 6405 [place], [place] 679715 Assigned Heart and Vascular Provider 07/08/24 12/05/24 Felicita Desai, GEMA Lead Enterprise Infrastructure Architect 07/14/24 07/28/24 Arthur Salas [facility] [address] [address] Assigned Behavioral Health Provider 08/08/24 Randy Maradiaga DO [address] [place] [address] 253395 Assigned Neuroscience Provider 08/08/24 Tete Wang MD 2450 [place], [place] [phone] Genetics, Clinical 10/30/24 Dahlia Joyce MD [address] [place] [address] 181895 Radiology Neuroradiology 11/17/24 Lisa Zambrano MD 6405 [facility] [address] [place], [place] 680325 Assigned Heart and Vascular Provider 12/06/24 [place] [address] [place] [address] 363964 Assigned Pediatric Specialist Provider 01/06/25 Any Joiner MD [address] [place] [address] [phone] Assigned Pulmonology Provider 02/05/25 Bindu Bueno OD [address] [place] [address] 655255 Assigned Surgical Provider 03/08/25 Aftab Finn MD [address] 174660 Dermatology 03/17/25 Aftab Finn MD 500 [place], [place] 286195 Assigned Dermatology Provider 04/07/25 Selena Mcfadden, W Community Health Worker 05/25/2505/26 Red De Los Santos LSW Lead Enterprise Infrastructure Architect Primary Care - CC 05/26/25 Santa Menon, PA-C [address] [place] [address] Physician Psychometrician Physical Medicine and Rehabilitation 02/25/25 Alessandra Pereira RN Specialty Enterprise Infrastructure Architect Neurological Surgery 06/02/25 documented as of this encounter
--- OUTSIDE RECORDS SUMMARY | 2025-07-07 18:19 | XMS_ITS | Encounter Summary ---
Author Organization [place] Address [address] [place] [address] Care Team Providers Care Miner Helper Name Role Phone Winston Villatoro OD Unavailable [phone] Denise Woodson APRN FOOD AND BEVERAGE ORDER CLERK Unavailable [phone] Denise Woodson APRN FOOD AND BEVERAGE ORDER CLERK Primary Care Provider Usha Simon APRN FOOD AND BEVERAGE ORDER CLERK Unavailable + [phone] Dangelo Salinas MD Unavailable Joya Lira RP Unavailable +[phone] Joya Lira [facility] Unavailable +[phone] Fabi Coates MD Unavailable [phone] Sinyigaya, Specmadi PRECISION AGRICULTURE SPECIALIST Unavailable +[phone] Randy Maradiaga DO Unavailable + Tete Wang MD Unavailable +[phone] Dahlia Joyce MD Unavailable [phone] Lisa Zambrano MD Unavailable + [phone] Tete Wang MD Unavailable +[phone] Any Joiner MD Unavailable [phone] Bindu Bueno OD Unavailable [phone] Aftab Finn MD Unavailable Randy Maradiaga DO Primary Care Prov ider Aftab Finn MD Unavailable Santa Menon PA-C Unavailable +[phone] Encounter Details Date Type Department Care Team (Latest Contact Info) Description 03/24/2025 Results Follow-Up [facility] Dermatology Clinic [address] [place] [address] Aftab Finn MD [address] [place] [address] Subj: Message about your results Social History Tobacco Use Types Packs/Day [...] re latives? 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 150 [facility] [place] [phone] BuenoBindu, OD 909 [place], [place] 5070[address] Rubi Johnson, OT [facility] 150 [place], [place] [address] 07/15/2025 2:30 PM CDT Office Visit [facility] [address] [place] [address] Denise Woodson APRN FOOD AND BEVERAGE ORDER CLERK [address] [place], [place] 5560468 07/16/2025 11:00 AM CDT [facility] 150 [place] [phone] MylesBindu, OD 909 [place], [place] 8[address] Rubi Johnson, OT [address] 677637 07/23/2025 11:00 AM SIX SIGMA BLACK TRAINER [facility] 150 [place] [phone] MylesBindu, OD 909 [place], [place] 718625 Rubi Johnson, OT [facility] 150 [place], [place] 9[address]907 08/03/2025 11:00 AM SIX SIGMA BLACK TRAINER Virtual Visit [facility] 150 [place] [phone] Bindu Bueno, OD 909 [place], [place] 140365 Rubi Johnson, OT [address] [address] 08/03/2025 4:30 PM SIX SIGMA BLACK TRAINER Virtual Visit [facility] [address] [phone] Any Joiner MD [address] [place] [address] 498535 08/17/2025 12:45 PM SIX SIGMA BLACK TRAINER [facility] 150 [place] [phone] Bindu Bueno, OD 909 [place], [place] 418725 Rubi Johnson, OT [address] [address] 10/04/2025 10:15 AM SIX SIGMA BLACK TRAINER Virtual Visit [facility] Physical Medicine and Rehabilitation Clinic [address] [phone] Santa Menon PANilesC [address] [place] [address] 359685 01/19/2026 11:30 AM CDT Office Visit [facility] Neurology Clinic [address] [address] Randy Maradiaga DO 909 [place] [address] documented as of this encounter Visit Diagnoses Not on filedocumented in this encounter Additional Health Concerns Assessment Noted Time PHQ-9 Depression Total Score: 13 03/16/ 025 10:29 AM CDT documented as of this encounter Care Teams Miner Helper Relationship Specialty Start Date End Date Winston Villatoro OD [facility] [place] [address] [place] [address] PCP - Ophthalmology Ophthalmology 02/11/13 Denise Woodson APRN FOOD AND BEVERAGE ORDER CLERK [address] [place] [address] PCP - General Family Practice 09/21/20 04/07/25 Randy Maradiaga DO 909 [place] [address] PCP - General Neurology 04/08/25 05/25/25 Denise Woodson APRN FOOD AND BEVERAGE ORDER CLERK [address] [place] [address] Assigned PCP 07/17/20 Usha Simon APRN FOOD AND BEVERAGE ORDER CLERK 909 [facility] AS0550IU [place] [address] Nurse Practitioner Neurological Surgery 01/24/24 Dangelo Salinas MD [address] [place] [address] Neurology 01/27/24 Joya Lira RP [address] [place] [address] Pharmacist Pharmacist 05/25/24 Soraya Joya, PAZ [address] [place] [address] Assigned MTM Pharmacist 06/08/24 Fabi Coates MD [address] [place] [address] 75 [place] [address] Genetics, Clinical 06/18/24 Arthur Salas [facility] [address] [address] Assigned Behavioral Health Provider 08/08/24 Randy Maradiaga DO [address] [place] [address] Assigned Neuroscience Provider 08/08/24 Tete Wang MD [address] [place] [address] Genetics, Clinical 10/30/24 Dahlia Joyce MD [address] [place] [address] Radiology Neuroradiology 11/17/24 Lisa Zambrano MD 6405 [facility] [place] [address] Assigned Heart and Vascular Provider 12/06/24 Tete Wang MD [address] [place] [address] Assigned Pediatric Specialist Provider 01/06/25 Any Joiner MD [address] [place] [address] 400885 Assigned Pulmonology Provider 02/05/25 Bindu Bueno OD [address] [place] [address] [id number] Assigned Surgical Provider 03/08/25 Aftab Finn MD [address] 679200 Dermatology 03/17/25 Aftab Finn MD 500 [place], [place] 671575 Assigned Dermatology Provider 04/07/25 Santa Menon PANilesC [address] [place] [address] 623915 Physician Plate Fitter Physical Medicine and Rehabilitation 02/25/25 documented as of this encounter
--- OUTSIDE RECORDS SUMMARY | 2025-07-07 18:19 | XMS_ITS | Encounter Summary ---
Author Organization [place] Address [address] [place] [address] Care Team Providers Care Red Hat Linux Engineer Name Role Phone Winston Villatoro Se OD Unavailable [phone] Denise Woodson APRN MECHANICAL HANDYMAN Unavailable [phone] Denise Woodson APRN MECHANICAL HANDYMAN Primary Care Provider Usha Simon APRN MECHANICAL HANDYMAN Unavailable + [phone] Dangelo Salinas MD Unavailable Anastasia Stearns RN Unavailable +[phone] Germaine Aleman CHW Unavailable +[phone] Lisa Zambrano MD Unavailable Raul Hoyos MD Unavailable Joya Lira [facility] Unavailable [phone] Joya Lira [facility] Unavailable +[phone] Fabi Coates MD Unavailable [phone] Robin Zepeda MD Unavailable +[phone] Danna Cardenas PA-C Unavailable [phone] Felicita Desai RN Unavailable Unavailab Arthur Rios [facility] Unavailable +[phone] Randy Maradiaga DO Unavailable + Tete Wang MD Unavailable [phone] Dahlia Joyce MD Unavailable [phone] Lisa Zambrano MD Unavailable + [phone] Tete Wang MD Unavailable [phone] Any Joiner MD Unavailable [phone] Bueno Bindu OD Unavailable [phone] Aftab Finn MD Unavailable Randy Maradiaga DO Primary Care Prov ider Aftab Finn MD Unavailable Selena Mcfadden CHW Unavailable [phone] Denise Woodson APRN MECHANICAL HANDYMAN Primary Care Provider Red De Los Santos [employer] [employer] Unavailable [phone] Santa Menon PA-C Unavailable +[phone] Alessandra Pereira RN Unavailable Encounter Details Date Type Department Care Team (Late st Contact Info) Description 05/24/2024 MyC Medical Advice Se [facility] [address] [facility], [address] [place] [address] Rohit Barcenas MD [address] [place] [address] 295 [place] [address] Social History Tobacco Use Types [...] How often do you attend presybeterian or moravian serv ices? 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 Not on file Not on file Not on file Not on file Not on file Not on file documented as of this encounter Plan of Treatment Upcoming Encounters Date Type Department Care Team (Late st Contact Info) Description 07/09/2025 11:00 AM CDT Virtual Visit [address] [phone] Bindu Bueno, OD 909 [place] [address] Rubi Johnson, OT [address] [address] 07/15/2025 2:30 PM CDT Office Visit [facility] [address] [place] [phone] Denise Woodson APRN [facility] [address] [place], [place] 1127368 07/16/2025 11:00 AM CDT Virtual Visit [address] [phone] Bindu Bueno, OD 909 [place] [address] Rubi Johnson, OT [address] [address] 07/23/2025 11:00 AM DEMOLITION WORKER Virtual Visit [address] [phone] Bindu Bueno, OD 909 [place] [address] Rubi Johnson, OT [address] [address] 08/03/2025 11:00 AM DEMOLITION WORKER Virtual Visit [address] [phone] Bindu Bueno, OD 909 [place] [address] Rubi Johnson, OT [address] [address] 08/03/2025 4:30 PM DEMOLITION WORKER Virtual Visit [facility] [address] [phone] Any Joiner MD [address] [place] [address] 08/17/2025 12:45 PM DEMOLITION WORKER Virtual Visit [facility] Services [address] [phone] Bindu Bueno, OD [address] [place] [address] 983005 Rubi Johnson, OT F[facility] [address] 712057 10/04/2025 10:15 AM DEMOLITION WORKER Virtual Visit [facility] Physical Medicine and Rehabilitation Clinic [address] [phone] Santa Menon, PANilesC [address] [place] [address] 706165 01/19/2026 11:30 AM CDT Office Visit [facility] Neurology Clinic [address] [phone] Randy Maradiaga, [address] [place] [address] 765365 documented as of this encounter Visit Diagnoses Not on filedocumented in this encounter Additional Health Concerns Infection Onset Date Last Indicated Resolved Time Rule Out COVID-19 09/13/2024 09/13/2024 09/13/2024 12:31 PM DEMOLITION WORKER Rule Out COVID-19 11/14/2024 11/14/2024 11/14/2024 8:25 PM DEMOLITION WORKER Assessment Noted Time PHQ-9 Depression Total Score: 5 03/17/20 9:45 AM CDT documented as of this encounter Care Teams Red Hat Linux Engineer Relationship Specialty Start Date End Date Winston Villatoro, OD [facility] [place] [address] [place] [address] PCP - Ophthalmology Ophthalmology 02/11/13 Denise Woodson APRN MECHANICAL HANDYMAN [address] [address] [place] [address] PCP - General Family Practice 09/21/20 04/07/25 Randy Maradiaga DO 909 [place], [place] [address]335 PCP - General Neurology 04/08/25 05/25/25 Denise Woodson APRN MECHANICAL HANDYMAN [address] [address] [address] PCP - General Family Practice 05/26/25 Denise Woodson APRN MECHANICAL HANDYMAN [address] [address] [place] [address] Assigned PCP 07/17/20 Usha Simon APRN MECHANICAL HANDYMAN 909 [facility] [id number] [place], [place] [address]95 Nurse Practitioner Neurological Surgery 01/24/24 Dangelo Salinas MD [address] [place] [address] Neurology 01/27/24 Anastasia Stearns, RN Lead Tire Mold Engraver 02/06/24 12/17/24 Germaine Aleman, W Community Health Worker Primary Care - CC 02/18/2412/17/24 Lisa Zambrano MD [address] [place] [address] Assigned Heart and Vascular Provider 05/08/24 07/07/24 Raul Hoyos MD 909 [id number] [place] [address] Assigned Neuroscience Provider 05/08/24 07/07/24 Joya Lira [facility] [address] [place] [address] Pharmacist Pharmacist 05/25/24 Joya Lira [facility] [address] [place] [address] Assigned MTM Pharmacist 06/08/24 Fabi Coates MD [address] [place] [address] 75 [place] [address] Genetics, Clinical 06/18/24 Robin Zepeda MD 909 [id number] [place] [address] Assigned Neuroscience Provider 07/08/24 08/07/24 Danna Cardenas PA-C [address] [place] [address] Assigned Heart and Vascular Provider 07/08/24 12/05/24 Felicita Desai, GEMA Lead Tire Mold Engraver 07/14/24 07/28/24 Arthur Salas [facility] [address] [address] Assigned Behavioral Health Provider 08/08/24 Randy Maradiaga DO [address] [place] [address] Assigned Neuroscience Provider 08/08/24 Tete Wang MD [address] [place] [address] Genetics, Clinical 10/30/24 Dahlia Joyce MD [address] [place] [address] Radiology Neuroradiology 11/17/24 Lisa Zambrano MD [address] [place] [address] 173985 Assigned Heart and Vascular Provider 12/06/24 Tete Wang MD [address] [place] [address] Assigned Pediatric Specialist Provider 01/06/25 Any Joiner MD [address] [place] [address] 685005 Assigned Pulmonology Provider 02/05/25 Bindu Bueno OD [address] [place] [address] 630175 Assigned Surgical Provider 03/08/25 Aftab Finn MD [address] 28[address] Dermatology 03/17/25 Aftab Finn MD [address] [place] [address] 296255 Assigned Dermatology Provider 04/07/25 Selena Mcfadden, W Community Health Worker 05/25/2505/26 Red De Los Santos LSW Lead Tire Mold Engraver Primary Care - CC 05/26/25 Santa Menon, PANilesC [address] [place] [address] Physician Manager Beverage Physical Medicine and Rehabilitation 02/25/25 Alessandra Pereira, RN Specialty Tire Mold Engraver Neurological Surgery 06/02/25 documented as of this encounter
--- OUTSIDE RECORDS SUMMARY | 2025-07-07 18:19 | XMS_ITS | Encounter Summary ---
Author Organization [place] Address [address] [place] [address] Care Team Providers Care Jailor Name Role Phone Winston Villatoro OD Unavailable [phone] Denise Woodson APRN INSTANTIZER OPERATOR Unavailable +[phone] Denise Woodson APRN INSTANTIZER OPERATOR Primary Care Provider Usha Simon APRN INSTANTIZER OPERATOR Unavailable + [phone] Dangelo Salinas MD Unavailable Joya Lira RP Unavailable +[phone] Joya Lira [facility] Unavailable +[phone] Fabi Coates MD Unavailable [phone] Sinyigaya, Specmadi UNIX ARCHITECT Unavailable +[phone] Randy Maradiaga DO Unavailable + Tete Wang MD Unavailable +[phone] Dahlia Joyce MD Unavailable +[phone] Lisa Zambrano MD Unavailable + [phone] Tete Wang MD Unavailable +[phone] Any Joiner MD Unavailable +[phone] Bindu Bueno OD Unavailable +[phone] Aftab Finn MD Unavailable Randy Maradiaga DO Primary Care Prov ider Aftab Fnin MD Unavailable Selena Mcfadden CHW Unavailable [phone] Chintan Denise BARRERA INSTANTIZER OPERATOR Primary Care Provider Red De Los Santos FILLING STATION ATTENDANT Unavailable [phone] Santa Menon PA-C Unavailable +[phone] Alessandra Pereira RN Unavailable Encounter Details Date Type Department Care Team (Late st Contact Info) Description 04/04/2025 MyC Medical Advice [facility] Neurology Clinic [address] [address] Hansa Gregory MD [address] [place] [address] Social History Tobacco Use Types Packs/Day [...] Answer Date Recorded PHQ-2 Score 4 03/16/2025 [facility] of Occupat ional Health - Occupational Stress [...] file Legal Sex Female 4:05 AM DIRECTOR PEOPLESOFT Gender Identity Not on file Sexual Orientation [...] Description 07/09/2025 11:00 AM CDT Virtual Visit [facility] [address] [place] [phone] Bindu Bueno, OD [address] [place], [place] 456745 Rubi Johnson, OT [address] 499[address] 07/15/2025 2:30 PM CDT Office Visit [facility] [address] [place] [address] Denise Woodson, BARRERA INSTANTIZER OPERATOR [address] [place], [place] 7788568 07/16/2025 11:00 AM CDT Virtual Visit [facility] [address] [place] [phone] Bindu Bueno, OD [address] [place], [place] 894[address] Rubi Johnson, OT [address] 1908[address] 07/23/2025 11:00 AM DIRECTOR PEOPLESOFT Virtual Visit [facility] [address] [place] [phone] Bindu Bueno, OD [address] [place] [address] Rubi Johnson, OT [address] [id number] 08/03/2025 11:00 AM DIRECTOR PEOPLESOFT Virtual Visit [address] [phone] BuenoBindu, OD [address] [place] [address] Rubi Johnson, OT [address] [address] 08/03/2025 4:30 PM DIRECTOR PEOPLESOFT Virtual Visit [facility] [address] [phone] Any Joiner MD [address] 016905 08/17/2025 12:45 PM DIRECTOR PEOPLESOFT Virtual Visit [address] [phone] Bindu Bueno, OD [address] [place] [address] Rubi Johnson, OT [address] 059697 10/04/2025 10:15 AM DIRECTOR PEOPLESOFT Virtual Visit [facility] Physical Medicine and Rehabilitation Clinic [address] 3rd [place] [phone] Santa Menon PAMani [address] [place] [address] 01/19/2026 11:30 AM CDT Office Visit [facility] Neurology Clinic [place] 909 [facility] 3rd [place] [address] Radny Maradiaga DO [address] [place] [address] documented as of this encounter Visit Diagnoses Not on filedocumented in this encounter Additional Health Concerns Assessment Noted Time PHQ-9 Depression Total Score: 13 025 10:29 AM CDT documented as of this encounter Care Teams Jailor Relationship Specialty Start Date End Date Winston Villatoro OD [facility] [place] [address] [place] [address] PCP - Ophthalmology Ophthalmology 02/11/13 Denise Woodson APRN INSTANTIZER OPERATOR [address] [address] PCP - General Family Practice 09/21/20 04/07/25 Randy Maradiaga DO [address] [place] [address] PCP - General Neurology 04/08/25 05/25/25 Denise Woodson APRN INSTANTIZER OPERATOR [address] [address] [address] PCP - General Family Practice 05/26/25 Denise Woodson APRN INSTANTIZER OPERATOR [address] [address] [address] Assigned PCP 07/17/20 Usha Simon APRN INSTANTIZER OPERATOR 909 [facility] [place] [address] Nurse Practitioner Neurological Surgery 01/24/24 Dangelo Salinas MD [address] [place] [address] Neurology 01/27/24 Joya Lira [facility] [address] [place] [address] Pharmacist Pharmacist 05/25/24 Joya Lira [facility] [address] [place] [address] Assigned MTM Pharmacist 06/08/24 Fabi Coates MD [address] [place] [address] 75 [place] [address] Genetics, Clinical 06/18/24 Arthur Salas [facility] [address] [place] [address] Assigned Behavioral Health Provider 08/08/24 Randy Maradiaga DO [address] [place] [address] Assigned Neuroscience Provider 08/08/24 Tete Wang MD 2450 [place] [address] Genetics, Clinical 10/30/24 Dahlia Joyce MD [address] [place] [address] Radiology Neuroradiology 11/17/24 [place] [address] [place] [address] [address] [place] [address] Assigned Heart and Vascular Provider 12/06/24 [place] [address] [place] [address] Assigned Pediatric Specialist Provider 01/06/25 Any Joiner MD [address] [place] [address] 192365 Assigned Pulmonology Provider 02/05/25 Bindu Bueno OD [address] [place] [address] 347915 Assigned Surgical Provider 03/08/25 Aftab Finn MD [address] 685820 Dermatology 03/17/25 Aftab Finn MD [address] [place] [address] 613585 Assigned Dermatology Provider 04/07/25 Selena Mcfadden, [facility] Community Health Worker 05/25/2505/26 Red De Los Santos LSW Lead Repairer Sash And Door Primary Care - CC 05/26/25 Santa Menon, PA-C [address] [place] [address] 237455 Physician Check Cashier Physical Medicine and Rehabilitation 02/25/25 Alessandra Pereira RN Specialty Repairer Sash And Door Neurological Surgery 06/02/25 documented as of this encounter
--- OUTSIDE RECORDS SUMMARY | 2025-07-07 18:19 | XMS_ITS | Encounter Summary ---
Author Organization [place] Address [address] [place] [address] Care Team Providers Care Supervisor Tunnel Heading Name Role Phone Winston Villatoro Se OD Unavailable [phone] Denise Woodson APRN INTAKE WORKER Unavailable [phone] Denise Woodson APRN INTAKE WORKER Primary Care Provider Usha Simon APRN INTAKE WORKER Unavailable + [phone] Dangelo Salinas MD Unavailable Anastasia Stearns RN Unavailable +[phone] Germaine Aleman CHW Unavailable +[phone] Lisa Zambrano MD Unavailable Raul Hoyos MD Unavailable Joya Lira [facility] Unavailable [phone] Joya Lira [facility] Unavailable +[phone] Fabi Coates MD Unavailable [phone] Robin Zepeda MD Unavailable +[phone] Danna Cardenas PA-C Unavailable +[phone] Felicita Desai RN Unavailable Unavailab Arthur Rios RETORT UNLOADER Unavailable +[phone] Randy Maradiaga DO Unavailable + Tete Wang MD Unavailable Dahlia Joyce MD Unavailable [phone] Lisa Zambrano MD Unavailable + [phone] Tete Wang MD Unavailable +[phone] Any Joiner MD Unavailable [phone] Myles Bindu OD Unavailable +[phone] Aftab Finn MD Unavailable Randy Maradiaga DO Primary Care Prov ider Aftab Finn MD Unavailable Selena Mcfadden CHW Unavailable [phone] Denise Woodson APRN INTAKE WORKER Primary Care Provider Red De Los Santos CELLARS SUPERVISOR Unavailable [phone] Santa Menon PA-C Unavailable +[phone] Alessandra Pereira RN Unavailable Encounter Details Date [...] [facility] of Occupat ional [facility] - Occupational Stress Questionnaire Answer Date Recorded [...] on file Legal Sex Female 4:05 AM CASE PACKER AND SEALER Gender Identity Not on file Sexual Orientation Not on file 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 Not on file Not on file Not on file Not on file Not on file Not on file documented as of this encounter Plan of Treatment Upcoming Encounters Date Type Department Care Team (Late st Contact Info) Description 07/09/2025 11:00 AM CDT Virtual Visit [address] [phone] Bindu Bueno, OD 909 [place], [place] 847505 Rubi Johnson, OT [address] [address] 07/15/2025 2:30 PM CDT Office Visit [facility] [address] [place] [address] Denise Woodson APRN [employer] [address] [place] [address] 07/16/2025 11:00 AM CDT Virtual Visit [address] [phone] Bindu Bueno, OD 909 [place] [address] Rubi Johnson, OT [address] [address] 07/23/2025 11:00 AM CASE PACKER AND SEALER Virtual Visit [address] [phone] Bindu Bueno, OD 909 [place] [address] Rubi Johnson, OT [address] [address] 08/03/2025 11:00 AM CASE PACKER AND SEALER Virtual Visit [address] [phone] Bindu Bueno, OD 909 [place], [place] 365405 Rubi Johnson, OT [address] [address] 08/03/2025 4:30 PM CASE PACKER AND SEALER Virtual Visit [facility] [address] [phone] Any Joiner MD [address] [place] [address] 073765 08/17/2025 12:45 PM CASE PACKER AND SEALER Virtual Visit [address] [phone] Magali Buenoissa, OD 909 [place] [address] Rubi Johnson, OT [address] [address] 10/04/2025 10:15 AM CASE PACKER AND SEALER Virtual Visit [facility] Physical Medicine and Rehabilitation Clinic [address] [address] Santa Menon PANilesC [address] [place] [address] 023875 01/19/2026 11:30 AM CDT Office Visit [facility] Neurology Clinic [address] [phone] Randy Maradiaga DO [address] [place] [address] [phone] documented as of this encounter Visit Diagnoses Not on filedocumented in this encounter Additional Health Concerns Infection Onset Date Last Indicated Resolved Time Rule Out COVID-19 09/13/2024 09/13/2024 09/13/2024 12:31 PM CASE PACKER AND SEALER Rule Out COVID-19 11/14/2024 11/14/2024 11/14/2024 8:25 PM CASE PACKER AND SEALER Assessment Noted Time PHQ-9 Depression Total Score: 5 03/17/20 24 9:45 AM CDT documented as of this encounter Care Teams Supervisor Tunnel Heading Relationship Specialty Start Date End Date Winston Villatoro OD [facility] [place] [address] [place] [address] PCP - Ophthalmology Ophthalmology 02/11/13 Denise Woodson APRN INTAKE WORKER [address] [place] [address] PCP - General Family Practice 09/21/20 04/07/25 Randy Maradiaga DO 909 [place] [address] PCP - General Neurology 04/08/25 05/25/25 Denise Woodson APRN INTAKE WORKER [address] [place] [address] PCP - General Family Practice 05/26/25 Denise Woodson APRN INTAKE WORKER [address] [place] [address] Assigned PCP 07/17/20 Usha Simon APRN INTAKE WORKER [address] 063015 Nurse Practitioner Neurological Surgery 01/24/24 Dangelo Salinas MD [address] [place] [address] Neurology 01/27/24 Anastasia Stearns, RN Lead Cherry Picker Operator 02/06/24 12/17/24 Germaine Aleman, W Community Health Worker Primary Care - CC 02/18/2412/17/24 Lisa Zambrano MD [address] [place] [address] Assigned Heart and Vascular Provider 05/08/24 07/07/24 Raul Hoyos MD [address] 237095 Assigned Neuroscience Provider 05/08/24 07/07/24 Joya Lira [facility] [address] [place] [address] Pharmacist Pharmacist 05/25/24 Joya Lira [facility] [address] [place] [address] Assigned MTM Pharmacist 06/08/24 Fabi Coates MD [address] [place] [address] 75 [place] [address] Genetics, Clinical 06/18/24 Robin Zepeda MD [address] [place] [address] [place] [address] Assigned Neuroscience Provider 07/08/24 08/07/24 Danna Cardenas PA-C [address] [place] [address] Assigned Heart and Vascular Provider 07/08/24 12/05/24 Felicita Desai RN Lead Cherry Picker Operator 07/14/24 07/28/24 Arthur Salas, [facility] [address] [place] [address] Assigned Behavioral Health Provider 08/08/24 Randy Maradiaga DO [address] [place] [address] Assigned Neuroscience Provider 08/08/24 Tete Wang MD [address] [place] [address] Genetics, Clinical 10/30/24 Dahlia Joyce MD [address] [place] [address] Radiology Neuroradiology 11/17/24 [place] [address] [place] [address] [place] [address] Assigned Heart and Vascular Provider 12/06/24 Tete Wang MD [address] [place] [address] Assigned Pediatric Specialist Provider 01/06/25 Any Joiner MD [address] [place] [address] 812305 Assigned Pulmonology Provider 02/05/25 Bindu Bueno OD [address] [place] [address] 360235 Assigned Surgical Provider 03/08/25 Aftab Finn MD [address] [address] Dermatology 03/17/25 Aftab Finn MD [address] [place] [address] 902375 Assigned Dermatology Provider 04/07/25 Selena Mcfadden, W Community Health Worker 05/25/2505/26 Red De Los Santos LSW Lead Cherry Picker Operator Primary Care - CC 05/26/25 Santa Menon PA-C [address] [place] [address] Physician Horseback Riding Instructor Physical Medicine and Rehabilitation 02/25/25 Alessandra Pereira RN Specialty Cherry Picker Operator Neurological Surgery 06/02/25 documented as of this encounter
--- OUTSIDE RECORDS SUMMARY | 2025-07-07 18:19 | XMS_ITS | Encounter Summary ---
Author Organization [place] Address [address] [place] [address] Care Team Providers Care Sql Database Developer Name Role Phone Winston Villatoro Se OD Unavailable [phone] Denise Woodson APRN SOLAR APPLICATIONS DEVELOPMENT ENGINEER Unavailable +[phone] Denise Woodson APRN SOLAR APPLICATIONS DEVELOPMENT ENGINEER Primary Care Provider Usha Simon APRN SOLAR APPLICATIONS DEVELOPMENT ENGINEER Unavailable + [phone] Dangelo Salinas MD Unavailable Anastasia Stearns RN Unavailable Germaine Aleman CHW Unavailable +[phone] Lisa Zambrano MD Unavailable Raul Hoyos MD Unavailable Joya Lira [facility] Unavailable [phone] Joya Lira [facility] Unavailable +[phone] Fabi Coates MD Unavailable [phone] Robin Zepeda MD Unavailable +[phone] Danna Cardenas PA-C Unavailable +[phone] Felicita Desai RN Unavailable Unavailab Arthur Rios ELECTRIC APPLIANCE INSTALLER Unavailable +[phone] Randy Maradiaga DO Unavailable + Tete Wang MD Unavailable Dahlia Joyce MD Unavailable +[phone] Lisa Zambrano MD Unavailable + [phone] Tete Wang MD Unavailable +[phone] Any Joiner MD Unavailable [phone] Myles Bindu OD Unavailable [phone] Aftab Finn MD Unavailable Randy Maradiaga DO Primary Care Prov ider Aftab Finn MD Unavailable Selena Mcfadden CHW Unavailable [phone] Denise Woodson APRN SOLAR APPLICATIONS DEVELOPMENT ENGINEER Primary Care Provider Red De Los Santos SHOP DIRECTOR Unavailable [phone] Santa Menon PA-C Unavailable [phone] Alessandra Pereira RN Unavailable Encounter Details Date Type Department Care Team (Late st Contact Info) Description 05/25/2024 [facility] Neurology Clinic [address] [address] Raul Hoyos MD [address] [place] [address] HW1994MO [place] [address] Social History Tobacco Use Types [...] How often do you attend buddhist or worship serv ices? 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 Not on file Not on file Not on file Not on file Not on file Not on file documented as of this encounter Plan of Treatment Upcoming Encounters Date Type Department Care Team (Late st Contact Info) Description 07/09/2025 11:00 AM CDT Virtual Visit [address] [address] Bindu Bueno, OD 909 [place] [address] Rubi Johnson, OT [address] [address] 07/15/2025 2:30 PM CDT Office Visit [facility] [address] [place] [phone] Denise Woodson APRN [facility] [address] [place] [address] 07/16/2025 11:00 AM CDT Virtual Visit [address] [phone] Bindu Bueno, OD 909 [place] [address] Rubi Johnson, OT [address] [address] 07/23/2025 11:00 AM SUPERVISOR SELF SERVICE STORE Virtual Visit [address] [address] Bindu Bueno, OD 909 [place] [address] Rubi Johnson, OT [address] [address] 08/03/2025 11:00 AM SUPERVISOR SELF SERVICE STORE Virtual Visit [address] [phone] Bindu Bueno, OD 909 [place] [address] Rubi Johnson, OT [address] [address] 08/03/2025 4:30 PM SUPERVISOR SELF SERVICE STORE Virtual Visit [facility] [address] [phone] Any Joiner MD [address] [place] [address] 341805 08/17/2025 12:45 PM SUPERVISOR SELF SERVICE STORE Virtual Visit [facility] Rehabilitation Services [address] [phone] Bindu Bueno, OD [address] [place] [address] 151585 Rubi Johsnon, OT [facility] [address] [address] 10/04/2025 10:15 AM SUPERVISOR SELF SERVICE STORE Virtual Visit [facility] Physical Medicine and Rehabilitation Clinic [address] [phone] Santa Menon, PANilesC [address] [place] [address] 793805 01/19/2026 11:30 AM CDT Office Visit [facility] Neurology Clinic [address] [phone] Randy Maradiaga, [address] [place] [address] 552925 documented as of this encounter Visit Diagnoses Not on filedocumented in this encounter Additional Health Concerns Infection Onset Date Last Indicated Resolved Time Rule Out COVID-19 09/13/2024 09/13/2024 09/13/2024 12:31 PM SUPERVISOR SELF SERVICE STORE Rule Out COVID-19 11/14/2024 11/14/2024 11/14/2024 8:25 PM SUPERVISOR SELF SERVICE STORE Assessment Noted Time PHQ-9 Depression Total Score: 5 03/17/20 24 9:45 AM CDT documented as of this encounter Care Teams Sql Database Developer Relationship Specialty Start Date End Date Winston Villatoor, OD [facility] [place] [address] [place] [address] PCP - Ophthalmology Ophthalmology 02/11/13 Denise Woodson APRN SOLAR APPLICATIONS DEVELOPMENT ENGINEER [address] [place] [address] PCP - General Family Practice 09/21/20 04/07/25 Randy Maradiaga DO 909 [place], [place] 667485 PCP - General Neurology 04/08/25 05/25/25 Denise Woodson APRN SOLAR APPLICATIONS DEVELOPMENT ENGINEER [address] [place] [address] PCP - General Family Practice 05/26/25 Denise Woodson APRN SOLAR APPLICATIONS DEVELOPMENT ENGINEER [address] [place] [address] Assigned PCP 07/17/20 Usha Simon APRN SOLAR APPLICATIONS DEVELOPMENT ENGINEER [address] [place] [address] [id number] [place], [place] 135045 Nurse Practitioner Neurological Surgery 01/24/24 Dangelo Salinas MD [address] [place], [place] 95[address] Neurology 01/27/24 Anastasia Stearns, RN Lead Head Charger 02/06/24 12/17/24 Germaine Aleman, W Community Health Worker Primary Care - CC 02/18/2412/17/24 Lisa Zambrano MD [address] PRIMO [place]ESUS 823395 Assigned Heart and Vascular Provider 05/08/24 07/07/24 Raul Hoyos MD 909 [facility]J [place] [address] Assigned Neuroscience Provider 05/08/24 07/07/24 Joya Lira [facility] [address] [place] [address] Pharmacist Pharmacist 05/25/24 Joya Lira [facility] [address] [place] [address] Assigned MTM Pharmacist 06/08/24 Fabi Coates MD [address] [place] [address] 75 [place] [address] Genetics, Clinical 06/18/24 Robin Zepeda MD 909 [facility]121[address]J [place] [address] Assigned Neuroscience Provider 07/08/24 08/07/24 Danna Cardenas PA-C [address] [place] [address] Assigned Heart and Vascular Provider 07/08/24 12/05/24 Felicita Desai, RN Lead Head Charger 07/14/24 07/28/24 Arthur Salas [facility] [address] [place] [address] Assigned Behavioral Health Provider 08/08/24 Randy Maradiaga DO 909 [place], [place] 925665 Assigned Neuroscience Provider 08/08/24 Tete Wang MD [address] [place] [address] Genetics, Clinical 10/30/24 Dahlia Joyce MD [address] [place] [address] 492015 Radiology Neuroradiology 11/17/24 Lisa Zambrano MD [address] [place], [place] [address] [place] [address] 462405 Assigned Heart and Vascular Provider 12/06/24 Tete Wang MD [address] [place] [address] 584034 Assigned Pediatric Specialist Provider 01/06/25 Any Joiner MD [address] [place] [address] 276 [place], [place] 626005 Assigned Pulmonology Provider 02/05/25 Bindu Bueno OD [address] [place] [address] Assigned Surgical Provider 03/08/25 Aftab Finn MD [address] 647040 Dermatology 03/17/25 Aftab Finn MD [address] [place] [address] Assigned Dermatology Provider 04/07/25 Selena Mcfadden, W Community Health Worker 05/25/2505/26 Red De Los Santos LSW Lead Head Charger Primary Care - CC 05/26/25 Santa Menon PANilesC [address] [place] [address] Physician Community Support Associate Physical Medicine and Rehabilitation 02/25/25 Alessandra Pereira, RN Specialty Head Charger Neurological Surgery 06/02/25 documented as of this encounter
--- OUTSIDE RECORDS SUMMARY | 2025-07-07 18:19 | XMS_ITS | Encounter Summary ---
Author Organization [place] Address [address] [place] [address] Care Team Providers Care Ui Software Engineer Name Role Phone Winston Villatoro Se OD Unavailable [phone] Denise Woodson APRN TELEPHONE SEX WORKER Unavailable +[phone] Denise Woodson APRN TELEPHONE SEX WORKER Primary Care Provider Usha Simon APRN TELEPHONE SEX WORKER Unavailable + [phone] Dangelo Salinas MD Unavailable Anastasia Stearns RN Unavailable Germaine Aleman CHW Unavailable +[phone] Lisa Zambrano MD Unavailable Raul Hoyos MD Unavailable Joya Lira [facility] Unavailable +[phone] Joya Lira [facility] Unavailable +[phone] Fabi Coates MD Unavailable [phone] Robin Zepeda MD Unavailable +[phone] Danna Cardenas PA-C Unavailable +[phone] Felicita Desai RN Unavailable Unavailab Arthur Rios BODY AND FRAME TECHNICIAN Unavailable +[phone] Randy Maradiaga DO Unavailable + Tete Wang MD Unavailable Dahlia Joyce MD Unavailable [phone] Lisa Zambrano MD Unavailable + [phone] Tete Wang MD Unavailable +[phone] Any Joiner MD Unavailable +[phone] Myles Bindu OD Unavailable +[phone] Aftab Finn MD Unavailable Randy Maradiaga DO Primary Care Prov ider Aftab Finn MD Unavailable Selena Mcfadden CHW Unavailable [phone] Denise Woodson APRN TELEPHONE SEX WORKER Primary Care Provider Red De Los Santos AUTOMATION/CONTROLS MANAGER Unavailable [phone] Santa Menon PA-C Unavailable +[phone] Alessandra Pereira RN Unavailable Encounter Details Date Type Department Care Team (Late st Contact Info) Description 05/13/2024 [facility] Dennise [facility] Care Coordination [address] [address] Anastasia Stearns, RN Social History Tobacco Use [...] How often do you attend catholic or jewish serv ices? Never 02/28/2024 Do [...] Answer Date Recorded PHQ-2 Score 2 05/05/2024 [facility] - Occupational [...] on file Legal Sex Female 4:05 AM GROUP FITNESS ASSISTANT DEPARTMENT HEAD Gender Identity Not on file Sexual Orientation [...] Description 07/09/2025 11:00 AM CDT Virtual Visit [address] [phone] Bindu Bueno, OD [address]09 [place] [address] Rubi Johnson, OT [address] [address] 07/15/2025 2:30 PM CDT Office Visit [facility] [address] [place] [address] Denise Woodson APRN [facility] [address] [place], [place] 8[address] 07/16/2025 11:00 AM CDT Virtual Visit [address] [place] [address] Bindu Bueno, OD 909 [place] [address] Rubi Johnson, OT [facility] 150 [place] [address] 07/23/2025 11:00 AM GROUP FITNESS ASSISTANT DEPARTMENT HEAD [facility] 150 [place] [address] Bindu Bueno, OD 909 [place] [address] Rubi Johnson, OT [address] [address] 08/03/2025 11:00 AM GROUP FITNESS ASSISTANT DEPARTMENT HEAD [facility] [address] [place] [address] Bindu Bueno, OD 909 [place] [address] Rubi Johnson, OT [facility] 150 [place] [address] 08/03/2025 4:30 PM GROUP FITNESS ASSISTANT DEPARTMENT HEAD Virtual Visit [facility] [address] [phone] Any Joiner MD [address] [place] [address] 08/17/2025 12:45 PM GROUP FITNESS ASSISTANT DEPARTMENT HEAD Virtual Visit [facility] [place] [address] [place] [address] BuenoBindu flores, OD 9 [place], [place] [address] Rubi Johnson, OT [facility] 150 [place] [address] 10/04/2025 10:15 AM GROUP FITNESS ASSISTANT DEPARTMENT HEAD Virtual Visit [facility] Rehabilitation Clinic [address] [phone] Santa Menon, PA-C [address] [place] [address] 01/19/2026 11:30 AM CDT Office Visit [facility] Neurology Clinic [address] [address] Randy Maradiaga, [address] [place] [phone] documented as of this encounter Visit Diagnoses Not on filedocumented in this encounter Additional Health Concerns Infection Onset Date Last Indicated Resolved Time Rule Out COVID-19 09/13/2024 09/13/2024 09/13/2024 12:31 PM GROUP FITNESS ASSISTANT DEPARTMENT HEAD Rule Out COVID-19 11/14/2024 11/14/2024 11/14/2024 8:25 PM GROUP FITNESS ASSISTANT DEPARTMENT HEAD Assessment Noted Time PHQ-9 Depression Total Score: 5 03/17/20 24 9:45 AM CDT documented as of this encounter Care Teams Ui Software Engineer Relationship Specialty Start Date End Date Winston Villatoro, OD [facility] [place] [address] [place] [address] PCP - Ophthalmology Ophthalmology 02/11/13 Denise Woodson APRN TELEPHONE SEX WORKER [address] [place] [address] PCP - General Family Practice 09/21/20 04/07/25 Randy Maradiaga DO 909 [place] [address] PCP - General Neurology 04/08/25 05/25/25 Denise Woodson APRN TELEPHONE SEX WORKER [address] [facility] [place] [address] PCP - General Family Practice 05/26/25 Denise Woodson APRN TELEPHONE SEX WORKER [address]38[address] [facility] [place] [address] Assigned PCP 07/17/20 Usha Simon APRN TELEPHONE SEX WORKER 909 [facility] [id number] [place] [address] Nurse Practitioner Neurological Surgery 01/24/24 Dangelo Salinas MD [address] [facility] [address] [place] [address] Neurology 01/27/24 Anastasia Stearns, RN Lead Room Service Associate 02/06/24 12/17/24 Germaine Aleman, W Community Health Worker Primary Care - CC 02/18/2412/17/24 Lisa Zambrano MD [address] [place] [address] Assigned Heart and Vascular Provider 05/08/24 07/07/24 Raul Hoyos MD 909 [facility]121CJ [place] [address] Assigned Neuroscience Provider 05/08/24 07/07/24 Joya Lira [facility] [address] [place] [address] Pharmacist Pharmacist 05/25/24 Joya Lira [facility] [address] [place] [address] Assigned MTM Pharmacist 06/08/24 Fabi Coates MD [address] [place] [address] 75 [place] [address] Genetics, Clinical 06/18/24 Robin Zepeda MD 9 [facility]121CJ [place] [address] Assigned Neuroscience Provider 07/08/24 08/07/24 Danna Cardenas PA-C [address] [place] [address] Assigned Heart and Vascular Provider 07/08/24 12/05/24 Felicita Desai, RN Lead Room Service Associate 07/14/24 07/28/24 Arthur Salas [facility] [address] [address] Assigned Behavioral Health Provider 08/08/24 Randy Maradiaga DO [address] [place] [address] Assigned Neuroscience Provider 08/08/24 Tete Wang MD [address] [place] [address] [id number] Genetics, Clinical 10/30/24 Dahlia Joyce MD [address] [place] [address] 588225 Radiology Neuroradiology 11/17/24 [place] [address] [place], [place] [address] [place] [address] 496665 Assigned Heart and Vascular Provider 12/06/24 Tete Wang MD [address] [place] [address] 159984 Assigned Pediatric Specialist Provider 01/06/25 Any Joiner MD [address] [address] Assigned Pulmonology Provider 02/05/25 Bindu Bueno OD 909 [place], [place] [address] Assigned Surgical Provider 03/08/25 Aftab Finn MD [address] [address] Dermatology 03/17/25 Aftab Finn MD 500 [place] [address] Assigned Dermatology Provider 04/07/25 Selena Mcfadden, [facility] Community Health Worker 05/25/2505/26 Red De Los Santos, AUTOMATION/CONTROLS MANAGER Lead Room Service Associate Primary Care - CC 05/26/25 Santa Menon PA-C 909 [place] [address] Physician Flower Picker Physical Medicine and Rehabilitation 02/25/25 Alessandra Pereira, RN Specialty Room Service Associate Neurological Surgery 06/02/25 documented as of this encounter
--- OUTSIDE RECORDS SUMMARY | 2025-07-07 18:19 | XMS_ITS | Encounter Summary ---
Author Organization [place] Address [address] [place] [address] Care Team Providers Care Business Process Modeler Name Role Phone Winston Villatoro Se OD Unavailable [phone] Denise Woodson APRN DESIGN ENGINEER MARINE EQUIPMENT Unavailable [phone] Denise Woodson APRN DESIGN ENGINEER MARINE EQUIPMENT Primary Care Provider Usha Simon APRN DESIGN ENGINEER MARINE EQUIPMENT Unavailable + [phone] Dangelo Salinas MD Unavailable Anastasia Stearns RN Unavailable Germaine Aleman CHW Unavailable [phone] Lisa Zambrano MD Unavailable Raul Hoyos MD Unavailable Joya Lira [facility] Unavailable [phone] Joya Lira [facility] Unavailable +[phone] Fabi Coates MD Unavailable [phone] Robin Zepeda MD Unavailable +[phone] Danna Cardenas PA-C Unavailable +[phone] Felicita Desai RN Unavailable Unavailab Arthur Rios RETAIL STOCKER Unavailable +[phone] Randy Maradiaga DO Unavailable + Tete Wang MD Unavailable [phone] Dahlia Joyce MD Unavailable [phone] Lisa Zambrano MD Unavailable + [phone] Tete Wang MD Unavailable [phone] Any Joiner MD Unavailable [phone] Myles Bindu OD Unavailable [phone] Aftab Finn MD Unavailable Randy Maradiaga DO Primary Care Prov ider Aftab Finn MD Unavailable Selnea Mcfadden CHW Unavailable [phone] Denise Woodson APRN DESIGN ENGINEER MARINE EQUIPMENT Primary Care Provider Red De Los Santos CERTIFIED HEARING INSTRUMENT DISPENSER Unavailable [phone] Santa Menon PA-C Unavailable +[phone] Alessandra Pereira RN Unavailable Encounter Details Date [...] How often do you attend confucianism or rastafarian serv ices? 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 [address] [place] [address] Denise Woodson APRN [facility] [address] [place] [address] 07/16/2025 11:00 AM CDT Virtual Visit [address] [phone] Bindu Bueno, OD 909 [place] [address] Rubi Johnson, OT [address] [address] 07/23/2025 11:00 AM DONOR RECRUITER Virtual Visit [address] [phone] Bindu Bueno, OD 909 [place] [address] Rubi Johnson, OT [address] [address] 08/03/2025 11:00 AM DONOR RECRUITER Virtual Visit [address] [phone] Bindu Bueno, OD 909 [place], [place] [address] Rubi Johnson, OT [address] [address] 08/03/2025 4:30 PM DONOR RECRUITER Virtual Visit [facility] [address] [phone] Any Joiner MD [address] [place] [address] 150275 08/17/2025 12:45 PM DONOR RECRUITER Virtual Visit [address] [phone] Magali Buenoissa, OD 909 [place] [address] Rubi Johnson, OT [address] [address] 10/04/2025 10:15 AM DONOR RECRUITER Virtual Visit [facility] Physical Medicine and Rehabilitation Clinic [address] [address] Santa Menon PANilesC [address] [place] [address] 01/19/2026 11:30 AM CDT Office Visit [facility] Neurology Clinic [address] [phone] Randy Maradiaga DO [address] [place] [address] [phone] documented as of this encounter Visit Diagnoses Not on filedocumented in this encounter Additional Health Concerns Infection Onset Date Last Indicated Resolved Time Rule Out COVID-19 09/13/2024 09/13/2024 09/13/2024 12:31 PM DONOR RECRUITER Rule Out COVID-19 11/14/2024 11/14/2024 11/14/2024 8:25 PM DONOR RECRUITER Assessment Noted Time PHQ-9 Depression Total Score: 5 03/17/20 24 9:45 AM CDT documented as of this encounter Care Teams Business Process Modeler Relationship Specialty Start Date End Date Winston Villatoro OD [facility] [place] [address] [place] [address] PCP - Ophthalmology Ophthalmology 02/11/13 Denise Woodson APRN DESIGN ENGINEER MARINE EQUIPMENT [address] [address] [facility] [place] [address] PCP - General Family Practice 09/21/20 04/07/25 Randy Maradiaga DO 909 [place] [address] PCP - General Neurology 04/08/25 05/25/25 Denise Woodson APRN DESIGN ENGINEER MARINE EQUIPMENT [address] [place] [address] PCP - General Family Practice 05/26/25 Denise Woodson APRN DESIGN ENGINEER MARINE EQUIPMENT [address] [place] [address] Assigned PCP 07/17/20 Usha Simon APRN DESIGN ENGINEER MARINE EQUIPMENT [address] [address]79[address] Nurse Practitioner Neurological Surgery 01/24/24 Dangelo Salinas MD [address] [place] [address] Neurology 01/27/24 Anastasia Stearns, RN Lead Dielectric Press Operator 02/06/24 12/17/24 Germaine Aleman, W Community Health Worker Primary Care - CC 02/18/2412/17/24 Lisa Zambrano MD [address] [place] [address] Assigned Heart and Vascular Provider 05/08/24 07/07/24 Raul Hoyos MD [address] 620825 Assigned Neuroscience Provider 05/08/24 07/07/24 Joya Lira [facility] [address], [place] [address] Pharmacist Pharmacist 05/25/24 Joya Lira [facility] [address] [place] [address] Assigned MTM Pharmacist 06/08/24 Fabi Coates MD [address] [place] [address] 75 [place] [address] Genetics, Clinical 06/18/24 Robin Zepeda MD [address] [place] [address] [place] [address] Assigned Neuroscience Provider 07/08/24 08/07/24 Danna Cardenas PA-C [address] [place] [address] Assigned Heart and Vascular Provider 07/08/24 12/05/24 Felicita Desai RN Lead Dielectric Press Operator 07/14/24 07/28/24 Arthur Salas, [facility] [address] [place] [address] Assigned Behavioral Health Provider 08/08/24 Randy Maradiaga DO [address] [place] [address] Assigned Neuroscience Provider 08/08/24 Tete Wang MD [address] [place] [address] Genetics, Clinical 10/30/24 Dahlia Joyce MD [address] [place] [address] Radiology Neuroradiology 11/17/24 [place] [address] [place] [address] [place] [address] Assigned Heart and Vascular Provider 12/06/24 Tete Wang MD [address] [place] [address] Assigned Pediatric Specialist Provider 01/06/25 Any Joiner MD [address] [place] [address]2005 Assigned Pulmonology Provider 02/05/25 Bindu Bueno OD [address] [place] [address] 373125 Assigned Surgical Provider 03/08/25 Aftab Finn MD [address] [address] Dermatology 03/17/25 Aftab Finn MD [address] [place] [address] 991185 Assigned Dermatology Provider 04/07/25 Selena Mcfadden, W Community Health Worker 05/25/2505/26 Red De Los Santos LSW Lead Dielectric Press Operator Primary Care - CC 05/26/25 Santa Menon PA-C [address] [place] [address] Physician Bone Crusher Physical Medicine and Rehabilitation 02/25/25 Alessandra Pereira RN Specialty Dielectric Press Operator Neurological Surgery 06/02/25 documented as of this encounter
--- OUTSIDE RECORDS SUMMARY | 2025-07-07 18:20 | XMS_ITS | Encounter Summary ---
Author Organization [place] Address [address] [place] [address] Care Team Providers Care Youth Program Director Name Role Phone Winston Villatoro Se OD Unavailable +[phone] Denise Woodson APRN MANAGER BOOKS Unavailable [phone] Denise Woodson APRN MANAGER BOOKS Primary Care Provider Usha Simon APRN MANAGER BOOKS Unavailable + [phone] Dangelo Salinas MD Unavailable Anastasia Stearns RN Unavailable Germaine Aleman CHW Unavailable [phone] Robin Zepeda MD Unavailable Lisa Zambrano MD Unavailable [phone] Raul Hoyos MD Unavailable Joya Lira [facility] Unavailable +[phone] Joya Lira [facility] Unavailable Fabi Coates MD Unavailable [phone] Robin Zepeda MD Unavailable Danna CardenasC Unavailable +[phone] Felicita Desai RN Unavailable Unavailab Arthur Rios Unavailable +[phone] Randy Maradiaga DO Unavailable + Tete Wang MD Unavailable +[phone] Dahlia Joyce MD Unavailable [phone] Lisa Zambrano MD Unavailable +[phone] Tete Wang MD Unavailable +[phone] Any Joiner MD Unavailable +[phone] Myles Bindu OD Unavailable +[phone] Aftab Finn MD Unavailable Randy Maradiaga DO Primary Care Prov ider Aftab Finn MD Unavailable Selena Mcfadden CHW Unavailable [phone] Denise Woodson APRN MANAGER BOOKS Primary Care Provider Red De Los Santos SOFTWARE SUPPORT ANALYST Unavailable [phone] Santa Menon-Adia Unavailable [phone] Alessandra Pereira RN Unavailable Encounter Details Date Type Department Care Team (Late st Contact Info) Description 04/02/2024 [facility] Medical Advice [facility] Neurology Clinic [address] [phone] Liliane Cobos Social History Tobacco Use [...] How often do you attend adventism or pentecostal serv ices? Never 02/28/2024 Do [...] Answer Date Recorded PHQ-2 Score 0 03/17/2024 [facility] of Occupat [...] file Legal Sex Female 4:05 AM CARE COMPANION Gender Identity Not on file Sexual Orientation [...] Description 07/09/2025 11:00 AM CDT Virtual Visit [address] [phone] Bindu Bueno, OD 909 [place] [address] Rubi Johnson, OT [address] [address] 07/15/2025 2:30 PM CDT Office Visit [facility] [address] [place] [address] Denise Woodson APRN [facility] [address] [place] [address] 07/16/2025 11:00 AM CDT Virtual Visit [facility] [address] [facility] [place] [phone] Bindu Bueno, OD 909 [place] [address] Rubi Johnson, OT [address] [address] 07/23/2025 11:00 AM CARE COMPANION Virtual Visit [address] [phone] Bindu Bueno, OD 909 [place] [address] Rubi Johnson, OT [address] [address] 08/03/2025 11:00 AM CARE COMPANION Virtual Visit [address] [phone] Bindu Bueno, OD 909 [place] [address] Rubi Johnson, OT [address] [address] 08/03/2025 4:30 PM CARE COMPANION Virtual Visit [facility] [address] [phone] Any Joiner MD [address] [place] [address] 718635 08/17/2025 12:45 PM CARE COMPANION [facility] [place] [phone] Bindu Bueno, OD [address] [place] [address]115 Rubi Johnson, OT [facility] 150 [place] [address] 10/04/2025 10:15 AM CARE COMPANION Virtual Visit [facility] [address] [phone] Santa Menon PAMani [address] [place] [place] [address] 219315 01/19/2026 11:30 AM CDT Office Visit [facility] [address] [phone] Randy Maradiaga, [address] [place] [address] 77765455 documented as of this encounter Visit Diagnoses Not on filedocumented in this encounter Additional Health Concerns Infection Onset Date Last Indicated Resolved Time Rule Out COVID-19 09/13/2024 09/13/2024 09/13/2024 12:31 PM CARE COMPANION Rule Out COVID-19 11/14/2024 11/14/2024 11/14/2024 8:25 PM CARE COMPANION Assessment Noted Time PHQ-9 Depression Total Score: 5 03/17/20 24 9:45 AM CDT documented as of this encounter Care Teams Youth Program Director Relationship Specialty Start Date End Date Winston Villatoro, OD [facility] [place] [address] [place] [address] PCP - Ophthalmology Ophthalmology 02/11/13 Denise Woodson APRN MANAGER BOOKS [address] [place] [address] PCP - General Family Practice 09/21/20 04/07/25 Randy Maradiaga DO 909 [place] [address] PCP - General Neurology 04/08/25 05/25/25 Denise Woodson APRN MANAGER BOOKS [address] [place] [address] PCP - General Family Practice 05/26/25 Denise Woodson APRN MANAGER BOOKS [address] [place] [address] Assigned PCP 07/17/20 Usha Simon, TIRE INSPECTOR MANAGER BOOKS [address] [place] [address] 353255 Nurse Practitioner Neurological Surgery 01/24/24 Dangelo Salinas MD [address] [place] [address] Neurology 01/27/24 Anastasia Stearns, RN Lead Auto Machinist 02/06/24 12/17/24 Germaine Aleman, CHW Community Health Worker Primary Care - CC 02/18/2412/17/24 Robin Zepeda MD [address] [place] [address] Assigned Neuroscience Provider 03/08/24 05/07/24 Lisa Zambrano MD 6405 [facility] W[address] [place] [address] Assigned Heart and Vascular Provider 05/08/24 07/07/24 Raul Hoyos MD 909 [facility]2121[place], [place] [address] Assigned Neuroscience Provider 05/08/24 07/07/24 Joya Lira [facility] [address] [place] [address] Pharmacist Pharmacist 05/25/24 Joya Lira [facility] [address] [place] [address] Assigned MTM Pharmacist 06/08/24 Fabi Coates MD [address] [place] [address] 75 [place] [address] Genetics, Clinical 06/18/24 Robin Zepeda MD [address]09 [place], [place] [address] Assigned Neuroscience Provider 07/08/24 08/07/24 Danna Cardenas PA-C 6405 [place] [address] Assigned Heart and Vascular Provider 07/08/24 12/05/24 Felicita Desai RN Lead Auto Machinist 07/14/24 07/28/24 Arthur Salas [facility] [address] [place] [address] Assigned Behavioral Health Provider 08/08/24 Randy Maradiaga DO [address] [place] [address] Assigned Neuroscience Provider 08/08/24 Tete Wang MD [address] [place] [address] Genetics, Clinical 10/30/24 Dahlia Joyce MD [address] [place] [address] Radiology Neuroradiology 11/17/24 Lisa Zambrano MD [address] [place], [place] [address] [place] [address] 318335 Assigned Heart and Vascular Provider 12/06/24 Tete Wang MD [address] [place] [address] Assigned Pediatric Specialist Provider 01/06/25 Any Joiner MD [address] [place] [address] 276 [place] [address] Assigned Pulmonology Provider 02/05/25 Bindu Bueno OD [address] [place] [address] 186315 Assigned Surgical Provider 03/08/25 Aftab Finn MD [address] [place] [address] Dermatology 03/17/25 Aftab Finn MD [address] [place] [address] 143855 Assigned Dermatology Provider 04/07/25 Selena Mcfadden CHW Community Health Worker 05/25/2505/26 Red De Los Santos LSW Lead Auto Machinist Primary Care - CC 05/26/25 Santa Menon, PANilesC [address] [place] [address] 424395 Physician Tile Decorator Physical Medicine and Rehabilitation 02/25/25 Alessandra Pereira, RN Specialty Auto Machinist Neurological Surgery 06/02/25 documented as of this encounter
--- OUTSIDE RECORDS SUMMARY | 2025-07-07 18:20 | XMS_ITS | Encounter Summary ---
Author Organization [facility] Address [address] [place] [address] Care Team Providers Care Pharmacist'S Aide Name Role Phone Winston Villatoro OD Unavailable +[phone] Denise Woodson APRN BINDER STRIPPER HAND Unavailable +[phone] Usha Simon APRN BINDER STRIPPER HAND Unavailable + [phone] Dangelo Salinas MD Unavailable Joya Lira RPH Unavailable [phone] Joya Lira RPH Unavailable +[phone] Fabi Coates MD Unavailable [phone] SinArthur forbes AGRICULTURAL SALES REPRESENTATIVE Unavailable +[phone] Randy Maradiaga DO Unavailable + Tete Wang MD Unavailable +[phone] Dahlia Joyce MD Unavailable +[phone] Lisa Zambrano MD Unavailable + [phone] Tete Wang MD Unavailable +[phone] Any Joiner MD Unavailable +[phone] Bindu Bueno OD Unavailable +[phone] Aftab Finn MD Unavailable Randy Maradiaga DO Primary Care Prov ider Aftab Finn MD Unavailable MarquezSelena leiva CHW Unavailable [phone] Denise Woodson APRN BINDER STRIPPER HAND Primary Care Provider Red De Los Santos FOOD QUALITY TESTER Unavailable [phone] Santa Menon PA-C Unavailable +[phone] Alessandra Pereira RN Unavailable Encounter Details Date Type Department Care Team (Late st Contact Info) Description 05/20/2025 MyC Medical Advice [facility] [place] [facility] [address] [place] [address] Rubi Johnson, OT [facility] [address] [place] [address] Social History Tobacco Use Types Packs/Day Years [...] Answer Date Recorded PHQ-2 Score 4 03/16/2025 [facility] [place] of Occupat ional Health - Occupational [...] in an overnight fpc, or couch-surfing.) Yes 01/22/2025 Are you worried [...] on file Legal Sex Female 4:05 AM TRANSISTOR TESTER Gender Identity Not on file Sexual [...] 07/09/2025 11:00 AM CDT Virtual Visit [facility] [address] [place] [phone] Bindu Bueno, OD 909 [place], [place] 652845 Rubi Johnson, OT [address] 501687 07/15/2025 2:30 PM CDT Office Visit [facility] [address] [place] [phone] Denise Woodson APRN [facility] [address] [place], [place] 7317868 07/16/2025 11:00 AM CDT Virtual Visit [facility] [address] [place] [phone] Bindu Bueno, OD [address] [place], [place] 645435 Rubi Johnson, OT [address] 532547 07/23/2025 11:00 AM TRANSISTOR TESTER Virtual Visit [facility] [address] [place] [phone] Bindu Bueno, OD [address] [place], [place] 7[address] Rubi Johnson, OT [address] 583887 08/03/2025 11:00 AM TRANSISTOR TESTER Virtual Visit [address] [phone] Bindu Bueno, OD 909 [place] [address] Rubi Johnson, OT [address] 591987 08/03/2025 4:30 PM TRANSISTOR TESTER Virtual Visit [facility] [address] [phone] Any Joiner MD [address] 139745 08/17/2025 12:45 PM TRANSISTOR TESTER Virtual Visit [address] [phone] Bindu Bueno, OD 9 [place], [place] 993415 Rubi Johnson, OT [address] 718107 10/04/2025 10:15 AM TRANSISTOR TESTER Virtual Visit [facility] [address] 3rd [place] [phone] Santa Menon, PA-C [address] [place] [address] 383395 01/19/2026 11:30 AM CDT Office Visit [facility] [place] 909 [facility] 3rd [place] [address] Randy Maradiaga DO [address] [place] [address] documented as of this encounter Visit Diagnoses Not on filedocumented in this encounter Additional Health Concerns Assessment Noted Time PHQ-9 Depression Total Score: 13 025 10:29 AM CDT documented as of this encounter Care Teams Pharmacist'S Aide Relationship Specialty Start Date End Date Winston Villatoro OD [facility] [place] [address] [facility] [address] [place] [address] PCP - Ophthalmology Ophthalmology 02/11/13 Randy Maradiaga DO [address] [place] [address] PCP - General Neurology 04/08/25 05/25/25 Denise Woodson APRN BINDER STRIPPER HAND [address] [place] [address] PCP - General Family Practice 05/26/25 Denise Woodson APRN BINDER STRIPPER HAND [address] [place] [address] Assigned PCP 07/17/20 Usha Simon APRN BINDER STRIPPER HAND [address] [place] [address] [id number] [place] [address] Nurse Practitioner Neurological Surgery 01/24/24 Dangelo Salinas MD [address] [place] [address] Neurology 01/27/24 Joya Lira [facility] [address] [place] [address] Pharmacist Pharmacist 05/25/24 Joya Lira [facility] [address] [place] [address] Assigned MTM Pharmacist 06/08/24 Fabi Coates MD [address] [place] [address] 75 [place] [address] Genetics, Clinical 06/18/24 Arthur Salas, [facility] [address] [address] Assigned Behavioral Health Provider 08/08/24 Randy Maradiaga DO [address] [place] [address] 336195 Assigned Neuroscience Provider 08/08/24 Tete Wang MD 2450 [place] [address] Genetics, Clinical 10/30/24 Dahlia Joyce MD [address] [place] [address] 363095 Radiology Neuroradiology 11/17/24 Lisa Zambrano MD 6405 [facility] [address] [place] 580995 Assigned Heart and Vascular Provider 12/06/24 Tete Wang MD [address]50 [place], [place] 75789454 Assigned Pediatric Specialist Provider 01/06/25 Any Joiner MD [address] [address] Assigned Pulmonology Provider 02/05/25 Myels BinduAMELIE lazcano [address] [place] [address] Assigned Surgical Provider 03/08/25 Aftab Finn MD [address] 569020 Dermatology 03/17/25 Aftab Finn MD 500 [place] [address] Assigned Dermatology Provider 04/07/25 Selena Mcfadden, [facility] Community Health Worker 05/25/2505/26 Red De Los Santos FOOD QUALITY TESTER Lead Pigment Mixer Primary Care - CC 05/26/25 Santa Menon PA-C [address] [place] [address] Physician Senior Controls Engineer Physical Medicine and Rehabilitation 02/25/25 Alessandra Pereira, RN Specialty Pigment Mixer Neurological Surgery 06/02/25 documented as of this encounter
--- OUTSIDE RECORDS SUMMARY | 2025-07-07 18:20 | XMS_ITS | Encounter Summary ---
Author Organization [facility] Address [address] [place] [address] Care Team Providers Care Air Brake Mechanic Name Role Phone Winston Villatoro OD Unavailable [phone] Denise Woodson APRN UNDERCUTTER Unavailable [phone] Usha Simon APRN UNDERCUTTER Unavailable + [phone] Dangelo Salinas MD Unavailable Joya Lira RP Unavailable [phone] Joya Lira [facility] Unavailable Fabi Coates MD Unavailable [phone] Arthur Salas DRY HOUSE ATTENDANT Unavailable [phone] Randy Maradiaga DO Unavailable + Tete Wang MD Unavailable [phone] Dahlia Joyce MD Unavailable [phone] Lisa Zambrano MD Unavailable + [phone] Tete Wang MD Unavailable [phone] Any Joiner MD Unavailable [phone] Bindu Bueno OD Unavailable [phone] Aftab Finn MD Unavailable Aftab Finn MD Unavailable Denise Woodson APRN UNDERCUTTER Primary Care Provider Red De Los Santos SENIOR LOAN PROCESSOR Unavailable [phone] Santa MenonC Unavailable [phone] Alessandra Pereira RN Unavailable Reason for Visit * Reason Comments Medication Refill Encounter Details Date Type Department Care Team (Late st Contact Info) Description 07/02/2025 Refill [facility] [address] [place] [address] Denise Woodson APRN UNDERCUTTER [address] [place] [address] Medication Refill Social History Tobacco [...] Answer Date Recorded PHQ-2 Score 2 07/01/2025 [facility] [place] of Occupat ional Health - Occupational Stress [...] on file Legal Sex Female 4:05 AM LITHODUPLICATOR OPERATOR Gender Identity Not on file Sexual [...] 07/09/2025 11:00 AM CDT Virtual Visit [address] [phone] BuenoBindu, OD 909 [place], [place] 945925 Rubi Johnson, OT [address] 594577 07/15/2025 2:30 PM CDT Office Visit [facility] [address] [place] [address] Denise Woodson APRN UNDERCUTTER [address] [place], [place] 1805668 07/16/2025 11:00 AM CDT Virtual Visit [address] [phone] BuenoBindu flores, OD 909 [place], [place] 649095 Rubi Johnson, OT [address] 178427 07/23/2025 11:00 AM LITHODUPLICATOR OPERATOR Virtual Visit [address] [phone] BuenoBindu flores, OD [address] [place], [place] 500625 Rubi Johnson, OT [address] [address] 08/03/2025 11:00 AM LITHODUPLICATOR OPERATOR Virtual Visit [address] [phone] Bindu Bueno, OD [address]09 [place], [place] 392055 Rubi Johnson, OT [address] [address] 08/03/2025 4:30 PM LITHODUPLICATOR OPERATOR Virtual Visit [facility] [address] [phone] Any Joiner MD [address] [place] [address] 931415 08/17/2025 12:45 PM LITHODUPLICATOR OPERATOR Virtual Visit [address] [phone] Bindu Bueno, OD 9 [place] [address] Rubi Johnson, OT [address] [address] 10/04/2025 10:15 AM LITHODUPLICATOR OPERATOR Virtual Visit [facility] [address] 3rd [place] [phone] Santa Menon PAMani [address] [place] [address] 429315 01/19/2026 11:30 AM CDT Office Visit [facility] [address] 3rd [place] [phone] Randy Maradiaga, [address] [place] [address] documented as of this encounter Goals Goal [...] work. Strengths: Working with previous employer for Assisted Disability. 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 Patient expressed understanding of goal: yes Action steps to achieve this goal: I will continue to lean on my informal supports of my: family I will continue to work on the application(s) for: Social Security Disability and Foot Setter Disability through [employer] I will use the clinic as a resource and I understand I can contact my clinic with 24/7 after hours services available. I will continue to outreach to care coordination as needed for additional resources or supports. documented as of this encounter Visit Diagnoses Diagnosis Generalized anxiety disorder documented in this encounter Additional Health Concerns Active Problems Noted Date Diagnosed Date Patient expresses financial resource strain 05/17 Assessment Noted Time PHQ-9 Depression Total Score: 12 025 11:46 AM CDT documented as of this encounter Care Teams Air Brake Mechanic Relationship Specialty Start Date End Date Winston Villatoro OD [facility] 701 [facility] [address] [place] [address] PCP - Ophthalmology Ophthalmology 02/11/13 Denise Woodson APRN UNDERCUTTER [address] [address] PCP - General Family Practice 05/26/25 Denise Woodson APRN UNDERCUTTER [address] [address] [address] Assigned PCP 07/17/20 Usha Simon APRN UNDERCUTTER 909 [facility] PV6087WV [place] [address] Nurse Practitioner Neurological Surgery 01/24/24 Dangelo Salinas MD [address] [place] [address] Neurology 01/27/24 Joya Lira [facility] [address] [place] [address] Pharmacist Pharmacist 05/25/24 Joya Lira [facility] [address] [place] [address] Assigned MTM Pharmacist 06/08/24 Fabi Coates MD [address] [place] [address] 75 [place], [place] 351755 Genetics, Clinical 06/18/24 Arthur Salas [facility] [address] [place] [address] Assigned Behavioral Health Provider 08/08/24 Randy Maradiaga DO 909 [place] [address] Assigned Neuroscience Provider 08/08/24 Tete Wang MD [address] [facility] [place] [address] Genetics, Clinical 10/30/24 Dahlia Joyce MD 909 [place] [address] Radiology Neuroradiology 11/17/24 Lisa Zambrano MD 6405 [facility] [address] [place], [place] 247205 Assigned Heart and Vascular Provider 12/06/24 Tete Wang MD 2450 [place], [place] 106674 Assigned Pediatric Specialist Provider 01/06/25 Any Joiner MD [address] [place] [address] 276 [place], [place] 083345 Assigned Pulmonology Provider 02/05/25 Myles Bindu, OD [address] [place] [address] 088915 Assigned Surgical Provider 03/08/25 Aftab Finn MD [address] [address] Dermatology 03/17/25 Aftab Finn MD 500 [place] [address] Assigned Dermatology Provider 04/07/25 Red De Los Santos LSW Lead Cloud Solutions Architect Primary Care - CC 05/26/25 Santa Menon, PA-C 909 [place], [place] 373385 Physician Security Installer Physical Medicine and Rehabilitation 02/25/25 Alessandra Pereira RN Specialty Cloud Solutions Architect Neurological Surgery 06/02/25 documented as of this encounter
--- OUTSIDE RECORDS SUMMARY | 2025-07-07 18:20 | XMS_ITS | Encounter Summary ---
Author Organization [facility] Address [address] [place] [address] Care Team Providers Care Equipment Mechanic Name Role Phone Winston Villatoro Se OD Unavailable [phone] Denise Woodson APRN CONTAMINATED LAND CONSULTANT Unavailable [phone] Denise Woodson APRN CONTAMINATED LAND CONSULTANT Primary Care Provider Usha Simon APRN CONTAMINATED LAND CONSULTANT Unavailable + [phone] Dangelo Salinas MD Unavailable Anastasia Stearns RN Unavailable Germaine Aleman CHW Unavailable [phone] Lisa Zambrano MD Unavailable Raul Hoyos MD Unavailable Joya Lira [facility] Unavailable +[phone] Joya Lira [facility] Unavailable +[phone] Fabi Coates MD Unavailable [phone] Robin Zepeda MD Unavailable [phone] Danna Cardenas PA-C Unavailable [phone] Felicita Desai RN Unavailable Unavailab Arthur Rios BLOW MOLDER Unavailable [phone] Randy Maradiaga DO Unavailable + Tete Wang MD Unavailable [phone] Dahlia Joyce MD Unavailable [phone] Lisa Zambrano MD Unavailable + [phone] Tete Wang MD Unavailable [phone] Any Joiner MD Unavailable [phone] Myles Bindu OD Unavailable [phone] Aftab Finn MD Unavailable Randy Maradiaga DO Primary Care Prov ider Aftab Finn MD Unavailable Selena Mcfadden CHW Unavailable [phone] Denise Woodson APRN CONTAMINATED LAND CONSULTANT Primary Care Provider Red De Los Santos TRACK GREASER Unavailable [phone] Santa Menon PA-C Unavailable [phone] Alessandra Pereira RN Unavailable Encounter Details Date Type Department Care Team (Late st Contact Info) Description 07/07/2024 [facility] [place] [facility] [address] [address] Liliane Cobos Social History Tobacco [...] How often do you attend congregational or alevism serv ices? Never 02/28/2024 Do [...] Answer Date Recorded PHQ-2 Score 2 07/02/2024 [facility] [place] of Occupat ional Health - Occupational [...] on file Legal Sex Female 4:05 AM BLOOD TYPER Gender Identity Not on file Sexual Orientation [...] Description 07/09/2025 11:00 AM CDT Virtual Visit [address] [phone] Bindu Bueno, OD 909 [place] [address] Rubi Johnson, OT [address] [address] 07/15/2025 2:30 PM CDT Office [facility] [address] [place] [address] Denise Woodson APRN [facility] [address] [place] [address] 07/16/2025 11:00 AM CDT Virtual Visit [address] [phone] Bindu Bueno, OD 909 [place], [place] 476455 Rubi Johnson, OT [facility] [address] [place] [address] 07/23/2025 11:00 AM BLOOD TYPER Virtual Visit [facility] 150 [place] [phone] Bindu Bueno, OD 909 [place], [place] 020715 Rubi Johnson, OT [address] [address] 08/03/2025 11:00 AM BLOOD TYPER Virtual Visit [facility] 150 [place] [phone] Bindu Bueno, OD 909 [place] [address] Rubi Johnson, OT [address] [address] 08/03/2025 4:30 PM BLOOD TYPER Virtual Visit [facility] [place] 909 [place] [phone] Any Joiner MD [address] [place] [address] 08/17/2025 12:45 PM BLOOD TYPER Virtual Visit [address] [phone] Bindu Bueno, OD [address] [place] [address]1985 Rubi Johnson, OT [facility] [address] [address] 10/04/2025 10:15 AM BLOOD TYPER Virtual Visit [facility] [address] [phone] Santa Menon, PA-C [address] [place] [address] [phone] 01/19/2026 11:30 AM CDT Office Visit [facility] [address] [address] Randy Maradiaga, [address] [place] [address] 190185 documented as of this encounter Visit Diagnoses Not on filedocumented in this encounter Additional Health Concerns Infection Onset Date Last Indicated Resolved Time Rule Out COVID-19 09/13/2024 09/13/2024 09/13/2024 12:31 PM BLOOD TYPER Rule Out COVID-19 11/14/2024 11/14/2024 11/14/2024 8:25 PM BLOOD TYPER Assessment Noted Time PHQ-9 Depression Total Score: 5 03/17/20 24 9:45 AM CDT documented as of this encounter Care Teams Equipment Mechanic Relationship Specialty Start Date End Date Winston Villatoro, OD [facility] [place] [address] [place] [address] PCP - Ophthalmology Ophthalmology 02/11/13 Denise Woodson APRN CONTAMINATED LAND CONSULTANT [address] [address] PCP - General Family Practice 09/21/20 04/07/25 Randy Maradiaga DO 909 [place] [address] PCP - General Neurology 04/08/25 05/25/25 Denise Woodson APRN CONTAMINATED LAND CONSULTANT [address] [facility] [place] [address] PCP - General Family Practice 05/26/25 Denise Woodson APRN CONTAMINATED LAND CONSULTANT [address] [place] [address] Assigned PCP 07/17/20 Usha Simon APRN CONTAMINATED LAND CONSULTANT 909 [facility] [id number] [place] [address] Nurse Practitioner Neurological Surgery 01/24/24 Dangelo Salinas MD [address] [facility] JIE [facility] 200 [place] [address] Neurology 01/27/24 Anastasia Stearns, RN Lead Acetylene Torch Burner 02/06/24 12/17/24 Germaine Aleman, W Community Health Worker Primary Care - CC 02/18/2412/17/24 Lisa Zambrano MD [address] [place] [address] Assigned Heart and Vascular Provider 05/08/24 07/07/24 Raul Hoyos MD 840 [facility]2121CJ [place] [address] Assigned Neuroscience Provider 05/08/24 07/07/24 Joya Lira [facility] [address] [place] [address] Pharmacist Pharmacist 05/25/24 Joya Lira [facility] [address] [place] [address] Assigned MTM Pharmacist 06/08/24 Fabi Coates MD [address] [place] [address] 75 [place] [address] Genetics, Clinical 06/18/24 Robin Zepeda MD [address] [place] [address]CJ [place] [address] Assigned Neuroscience Provider 07/08/24 08/07/24 Danna Cardenas PA-C 6405 [place] [address] Assigned Heart and Vascular Provider 07/08/24 12/05/24 Felicita Desai RN Lead Acetylene Torch Burner 07/14/24 07/28/24 Arthur Salas, [facility] [address] [place] [address] Assigned Behavioral Health Provider 08/08/24 Randy Maradiaga DO [address] [place] [address] Assigned Neuroscience Provider 08/08/24 Tete Wang MD [address] [place] [address] Genetics, Clinical 10/30/24 Dahlia Joyce MD [address] [place] [address] Radiology Neuroradiology 11/17/24 [place] [address] [place] [address] [address] [place], [place] 327875 Assigned Heart and Vascular Provider 12/06/24 Tete Wang MD [address] [place] [address] Assigned Pediatric Specialist Provider 01/06/25 Any Joiner MD [address] [place] [address] 276 [place], [place] 861705 Assigned Pulmonology Provider 02/05/25 Bindu Bueno OD [address] [place] [address] 426305 Assigned Surgical Provider 03/08/25 Aftab Finn MD [address] [address] Dermatology 03/17/25 Aftab Finn MD 500 [place] [address] Assigned Dermatology Provider 04/07/25 Selena Mcfadden, [facility] Community Health Worker 05/25/2505/26 Red De Los Santos, OSEI Lead Acetylene Torch Burner Primary Care - CC 05/26/25 Santa Menon, PANilesC 909 [place] [address] Physician Donor Support Technician Physical Medicine and Rehabilitation 02/25/25 Alessandra Pereira, GEMA Specialty Acetylene Torch Burner Neurological Surgery 06/02/25 documented as of this encounter
--- OUTSIDE RECORDS SUMMARY | 2025-07-07 18:20 | XMS_ITS | Encounter Summary ---
Author Organization [place] Address [address] [place] [address] Care Team Providers Care Neck Band Operator Name Role Phone Winston Villatoro OD Unavailable [phone] Denise Woodson APRN DREDGEMASTER Unavailable [phone] Usha Simon APRN DREDGEMASTER Unavailable + [phone] Dangelo Salinas MD Unavailable Joya Lira RP Unavailable +[phone] Joya Lira [facility] Unavailable Fabi Coates MD Unavailable [phone] Arthur Salas INSURANCE CLAIMS CLERK Unavailable +[phone] Randy Maradiaga DO Unavailable + Tete Wang MD Unavailable +[phone] Dahlia Joyce MD Unavailable +[phone] Lisa Zambrano MD Unavailable + [phone] Tete Wang MD Unavailable +[phone] Any Joiner MD Unavailable +[phone] Bindu Bueno OD Unavailable +[phone] Aftab Finn MD Unavailable Aftab Finn MD Unavailable Denise Woodson APRN DREDGEMASTER Primary Care Provider Red De Los Santos SOFT MUD MOLDER Unavailable [phone] Santa Menon PA-C Unavailable Encounter Details Date Type Department Care Team (Latest Contact Info) Description 05/29/2025 Travel Social History Tobacco Use Types Packs/Day [...] re latives? 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 Hoahaoism Services Not on file 01/22 Active Member [...] Answer Date Recorded PHQ-2 Score 2 05/25/[address] [facility] of Occupat ional Health - Occupational Stress [...] file Legal Sex Female 4:05 AM SUPERINTENDENT SALES Gender Identity Not on file Sexual [...] 07/09/2025 11:00 AM CDT Virtual Visit [address] [address] Bindu Bueno, OD [address] [place] [address] Rubi Johnson, OT [facility] [address] [place] [address] 07/15/2025 2:30 PM CDT Office Visit [facility] [address] [place] [address] Denise Woodson, BARRERA DREDGEMASTER [address] [place] [address] 07/16/2025 11:00 AM CDT Virtual Visit [address] [phone] Bindu Bueno, OD 909 [place], [place] 9248[address] Rubi Johnson, OT [address] [address] 07/23/2025 11:00 AM SUPERINTENDENT SALES Virtual Visit [address] [phone] Myles Bindu, OD 909 [place] [address] Rubi Johnson, OT [address] [address] 08/03/2025 11:00 AM SUPERINTENDENT SALES Virtual Visit [address] [phone] Bueno, Bindu, OD 909 [place], [place] 825[address] Rubi Johnson, OT [address] [address] 08/03/2025 4:30 PM SUPERINTENDENT SALES Virtual Visit [facility] [address] [phone] Any Joiner MD [address] 0869[address] 08/17/2025 12:45 PM SUPERINTENDENT SALES Virtual Visit [facility] [address] [phone] Bindu Bueno, OD [address] [place] [address] 811895 Rubi Johnson, OT [address] [address] 10/04/2025 10:15 AM SUPERINTENDENT SALES Virtual Visit [facility] [address] [phone] Santa Menon, PA-C [address] [place] [address] 085145 01/19/2026 11:30 AM CDT Office Visit [facility] [address] [address] Randy Maradiaga DO [address] [place] [address] 213375 documented as of this encounter Goals Goal [...] work. Strengths: Working with previous employer for Detention Disability. 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 Patient expressed understanding of goal: yes Action steps to achieve this goal: I will continue to lean on my informal supports of my: family I will continue to work on the application(s) for: Social Security Disability and Test Eng Disability through Standard Insurance I will use [...] documented as of this encounter Care Teams Neck Band Operator Relationship Specialty Start Date End Date Winston Villatoro OD [facility] [place] [address] [place] [address] PCP - Ophthalmology Ophthalmology 02/11/13 Denise Woodson APRN DREDGEMASTER [address] [place] [address] PCP - General Family Practice 05/26/25 Denise Woodson APRN DREDGEMASTER [address] [place] [address] Assigned PCP 07/17/20 Usha Simon APRN DREDGEMASTER 909 [facility] [id number] [place] [address] Nurse Practitioner Neurological Surgery 01/24/24 Dangelo Salinas MD [address] [place] [address] Neurology 01/27/24 Joya Lira [facility] [address] [place] [address] Pharmacist Pharmacist 05/25/24 Joya Lira [facility] [address] [place] [address] Assigned MTM Pharmacist 06/08/24 Fabi Coates MD [address] [place] [address] 75 [place] [address] Genetics, Clinical 06/18/24 Arthur Salas [facility] [address] [place] [address] Assigned Behavioral Health Provider 08/08/24 Randy Maradiaga DO 9 [place], [place] 299865 Assigned Neuroscience Provider 08/08/24 Tete Wang MD 2450 [place] [address] Genetics, Clinical 10/30/24 Dahlia Joyce MD [address] [place] [address] 164105 Radiology Neuroradiology 11/17/24 Lisa Zambrano MD 6405 [facility] [address] [place] [address] Assigned Heart and Vascular Provider 12/06/24 [place] [address] [place] [address] Assigned Pediatric Specialist Provider 01/06/25 Any Joiner MD [address] [place] [address] 181335 Assigned Pulmonology Provider 02/05/25 Bindu Bueno OD [address] [place] [address] 634815 Assigned Surgical Provider 03/08/25 Aftab Finn MD [address] [place] [address] 997370 Dermatology 03/17/25 Aftab Finn MD [address] [place] [address] 115775 Assigned Dermatology Provider 04/07/25 Red De Los Santos LSW Lead Edger Tailer Primary Care - CC 05/26/25 Santa Menon PANilesC [address] [place] [address] 699045 Physician Durability Technician Physical Medicine and Rehabilitation 02/25/25 documented as of this encounter
--- OUTSIDE RECORDS SUMMARY | 2025-07-07 18:20 | XMS_ITS | Encounter Summary ---
Author Organization [place] Address [address] [place] [address] Care Team Providers Care Gravel Hauler Name Role Phone Winston Villatoro Se OD Unavailable [phone] Denise Woodson APRN ELEMENTARY SCHOOL READING TEACHER Unavailable [phone] Denise Woodson APRN ELEMENTARY SCHOOL READING TEACHER Primary Care Provider Usha Simon APRN ELEMENTARY SCHOOL READING TEACHER Unavailable + [phone] Dangelo Salinas MD Unavailable Anastasia Stearns RN Unavailable [phone] Germaine Aleman CHW Unavailable +[phone] Robin Zepeda MD Unavailable Lisa Zambrano MD Unavailable [phone] Raul Hoyos MD Unavailable Joya Lira [facility] Unavailable [phone] Joya Lira [facility] Unavailable +[phone] Fabi Coates MD Unavailable [phone] Robin Zepeda MD Unavailable Danna CardenasC Unavailable [phone] Felicita Desai RN Unavailable Unavailab Arthur Rios Unavailable +[phone] Randy Maradiaga DO Unavailable + Tete Wang MD Unavailable +[phone] Dahlia Joyce MD Unavailable [phone] Lisa Zambrano MD Unavailable +[phone] Tete Wang MD Unavailable +[phone] Any Joiner MD Unavailable +[phone] Myles Bindu OD Unavailable [phone] Aftab Finn MD Unavailable Randy Maradiaga DO Primary Care Prov ider Aftab Finn MD Unavailable Selena Mcfadden CHW Unavailable [phone] Denise Woodson APRN ELEMENTARY SCHOOL READING TEACHER Primary Care Provider Red De Los Santos HAND LENS POLISHER Unavailable [phone] Santa Menon PA-C Unavailable [phone] Alessandra Pereira RN Unavailable Encounter Details Date [...] How often do you attend buddhism or shinto serv ices? Never 02/28/2024 Do [...] Answer Date Recorded PHQ-2 Score 0 03/17/2024 [facility] of Occupat ional [...] on file Legal Sex Female 4:05 AM PEDIATRIC SOCIAL WORKER Gender Identity Not on file Sexual [...] 07/09/2025 11:00 AM CDT Virtual Visit [address] [phone] Bindu Bueno, OD 909 [place], [place] 619395 Rubi Johnson, OT [address] [address] 07/15/2025 2:30 PM CDT Office Visit [facility] [address] [place] [address] Denise Woodson APRN [facility] [address] [place] [address] 07/16/2025 11:00 AM CDT Virtual Visit [address] [phone] Bindu Bueno, OD 909 [place] [address] Rubi Johnson, OT [facility] [address] [place] [address] 07/23/2025 11:00 AM PEDIATRIC SOCIAL WORKER Virtual Visit [facility] 150 [place] [phone] Bindu Bueno, OD 909 [place], [place] 527555 Rubi Johnson, OT [address] [address] 08/03/2025 11:00 AM PEDIATRIC SOCIAL WORKER Virtual Visit [address] [phone] MylesBindu, OD 909 [place], [place] 622455 Rubi Johnson, OT [address] [address] 08/03/2025 4:30 PM PEDIATRIC SOCIAL WORKER Virtual Visit [facility] [address] [phone] Any Joiner MD [address] [place] [address] 08/17/2025 12:45 PM PEDIATRIC SOCIAL WORKER Virtual Visit [address] [phone] BuenoBindu flores, OD 9 [place], [place] 465785 Rubi Johnson, OT [address] [address] 10/04/2025 10:15 AM PEDIATRIC SOCIAL WORKER Virtual Visit [facility] [address] [address] Santa Menon, PA-C [address] [place] [address] 34584455 01/19/2026 11:30 AM CDT Office Visit [facility] [address] [address] Randy Maradiaga, [address] [place] [address] 632705 documented as of this encounter Visit Diagnoses Not on filedocumented in this encounter Additional Health Concerns Infection Onset Date Last Indicated Resolved Time Rule Out COVID-19 09/13/2024 09/13/2024 09/13/2024 12:31 PM PEDIATRIC SOCIAL WORKER Rule Out COVID-19 11/14/2024 11/14/2024 11/14/2024 8:25 PM PEDIATRIC SOCIAL WORKER Assessment Noted Time PHQ-9 Depression Total Score: 5 03/17/20 24 9:45 AM CDT documented as of this encounter Care Teams Gravel Hauler Relationship Specialty Start Date End Date Winston Villatoro M, OD [facility] [place] [address] [place] [address] PCP - Ophthalmology Ophthalmology 02/11/13 Denise Woodson APRN ELEMENTARY SCHOOL READING TEACHER [address] [place] [address] PCP - General Family Practice 09/21/20 04/07/25 Randy Maradiaga DO [address] [place] [address] PCP - General Neurology 04/08/25 05/25/25 Denise Woodson APRN ELEMENTARY SCHOOL READING TEACHER [address] [facility] [place] [address] PCP - General Family Practice 05/26/25 Denise Woodson APRN ELEMENTARY SCHOOL READING TEACHER [address] [place] [address] Assigned PCP 07/17/20 Usha Simon APRN ELEMENTARY SCHOOL READING TEACHER [address] [place] [address] Nurse Practitioner Neurological Surgery 01/24/24 Dangelo Salinas MD [address] [place] [address] [address] Neurology 01/27/24 Anastasia Stearns, RN Lead Wood Fence Erector 02/06/24 12/17/24 Germaine Aleman, W Community Health Worker Primary Care - CC 02/18/2412/17/24 Robin Zepeda MD [address] [place] [address] Assigned Neuroscience Provider 03/08/24 05/07/24 Lisa Zambrano MD [address] [address] Assigned Heart and Vascular Provider 05/08/24 07/07/24 Raul Hoyos MD 909 [id number] [place] [address] Assigned Neuroscience Provider 05/08/24 07/07/24 Joya Lira [facility] [address] [place] [address] Pharmacist Pharmacist 05/25/24 Joya Lira [facility] [address] [place] [address] Assigned MTM Pharmacist 06/08/24 Fabi Coates MD [address] [place] [address] 75 [place] [address] Genetics, Clinical 06/18/24 Robin Zepeda MD [address] [address] Assigned Neuroscience Provider 07/08/24 08/07/24 Danna Cardenas PA-C 6405 [place] [address] Assigned Heart and Vascular Provider 07/08/24 12/05/24 Felicita Desai, RN Lead Wood Fence Erector 07/14/24 07/28/24 Arthur Salas, [facility] [address] [place] [address] Assigned Behavioral Health Provider 08/08/24 Randy Maradiaga DO 909 [place], [place] 429915 Assigned Neuroscience Provider 08/08/24 Tete Wang MD [address] [place] [address] Genetics, Clinical 10/30/24 Dahlia Joyce MD [address] [place] [address] 565205 Radiology Neuroradiology 11/17/24 [place] [address] [place], [place] 286[address] [place], [place] 184775 Assigned Heart and Vascular Provider 12/06/24 Tete Wang MD [address] [place] [address] 554894 Assigned Pediatric Specialist Provider 01/06/25 Any Joiner MD 420 [facility] 276 [place], [place] 249365 Assigned Pulmonology Provider 02/05/25 Bindu Bueno, OD 909 [place], [place] 905355 Assigned Surgical Provider 03/08/25 Aftab Finn MD [address] [place] [address] Dermatology 03/17/25 Aftab Finn MD 500 [place] [address] Assigned Dermatology Provider 04/07/25 Selena Mcfadden, W Community Health Worker 05/25/2505/26 Red De Los Santos LSW Lead Wood Fence Erector Primary Care - CC 05/26/25 Santa Menon PANilesC [address] [place] [address] Physician Yard Brakeman Physical Medicine and Rehabilitation 02/25/25 Alessandra Pereira, RN Specialty Wood Fence Erector Neurological Surgery 06/02/25 documented as of this encounter
--- OUTSIDE RECORDS SUMMARY | 2025-07-07 18:20 | XMS_ITS | Encounter Summary ---
Author Organization [place] Address [address] [place] [address] Care Team Providers Care Sustainability Director Name Role Phone Winston Villatoro OD Unavailable [phone] Denise Woodson APRN HARBOR POLICE LIEUTENANT Unavailable +[phone] Usha Simon APRN HARBOR POLICE LIEUTENANT Unavailable + [phone] Dangelo Salinas MD Unavailable Joya Lira RP Unavailable +[phone] Joya Lira [facility] Unavailable +[phone] Fabi Coates MD Unavailable [phone] Arthur Salas PORTFOLIO LEAD Unavailable +[phone] Randy Maradiaga DO Unavailable + Tete Wang MD Unavailable +[phone] Dahlia Joyce MD Unavailable +[phone] Lisa Zambrano MD Unavailable + [phone] Tete Wang MD Unavailable +[phone] Any Joiner MD Unavailable +[phone] Bindu Bueno OD Unavailable [phone] Aftab Finn MD Unavailable Aftab Finn MD Unavailable Denise Woodson APRN HARBOR POLICE LIEUTENANT Primary Care Provider Red De Los Santos HEALTH AND WELLNESS MANAGER Unavailable [phone] Santa Menon PA-C Unavailable [phone] Alessandra Pereira RN Unavailable Encounter Details Date Type Department Care Team (Late st Contact Info) Description 07/02/2025 Documentation Only [facility] [address] [place] [address] Santa Menon PA-C [address] [place] [address] Social History Tobacco Use Types Packs/Day [...] re latives? 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 Zoroastrianism Services Not on file 01/22 Active Member [...] Answer Date Recorded PHQ-2 Score 2 07/01/2025 [facility] [place] of Occupat ional Health - Occupational Stress [...] on file Legal Sex Female 4:05 AM ACROBATIC DANCER Gender Identity Not on file Sexual Orientation [...] Description 07/09/2025 11:00 AM CDT Virtual Visit [address] [phone] BuenoBindu flores, OD 909 [place], [place] 6[address] Rubi Johnson, OT [facility] [address] 276597 07/15/2025 2:30 PM CDT Office Visit [facility] [address] [place] [address] Denise Woodson APRN HARBOR POLICE LIEUTENANT [address] [place], [place] 9571268 07/16/2025 11:00 AM CDT Virtual Visit [address] [phone] BuenoBindu, OD 909 [place], [place] 421335 Rubi Johnson, OT [address] 996537 07/23/2025 11:00 AM ACROBATIC DANCER Virtual Visit [address] [phone] MylesBindu, OD 909 [place], [place] 951245 Rubi Johnson, OT [address] 058657 08/03/2025 11:00 AM ACROBATIC DANCER Virtual Visit [address] [phone] Bindu Bueno, OD 909 [place] [address] Rubi Johnson, OT [address] [address] 08/03/2025 4:30 PM ACROBATIC DANCER Virtual Visit [facility] [address] [phone] Any Joiner MD [address] [place] [address] 193195 08/17/2025 12:45 PM ACROBATIC DANCER Virtual Visit [address] [phone] Bindu Bueno, OD 909 [place] [address] Rubi Johnson, OT [address] 746497 10/04/2025 10:15 AM ACROBATIC DANCER Virtual Visit [facility] [address] [phone] Santa Menon, PANilesC [address] [place] [address] 665305 01/19/2026 11:30 AM CDT Office Visit [facility] [address] [address] JefRandy oneill, DO 909 [place] [address] documented as of this encounter Goals Goal [...] employer for [employer] Disability. 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 Patient expressed understanding of goal: yes Action steps to achieve this goal: I will continue to lean on my informal supports of my: family I will continue to work on the application(s) for: Social Security Disability and Senior National Account Manager Disability through Standard Insurance I will use [...] documented as of this encounter Care Teams Sustainability Director Relationship Specialty Start Date End Date Winston Villatoro OD [facility] [place] [address] [facility] [address] [place] [address] PCP - Ophthalmology Ophthalmology 02/11/13 Denise Woodson APRN HARBOR POLICE LIEUTENANT [address] [address] [place] [address] PCP - General Family Practice 05/26/25 Denise Woodson APRN [employer]BOR POLICE LIEUTENANT [address] [address] [address] Assigned PCP 07/17/20 Usha Simon APRN HARBOR POLICE LIEUTENANT 909 [facility] [id number] [address] Nurse Practitioner Neurological Surgery 01/24/24 Dangelo Salinas MD [address] [place] [address] Neurology 01/27/24 Joya Lira [facility] [address] [place] [address] Pharmacist Pharmacist 05/25/24 Joya Lira [facility] [address] [place] [address] Assigned MTM Pharmacist 06/08/24 Fabi Coates MD 420 [facility] 75 [place], [place] 861155 Genetics, Clinical 06/18/24 Arthur Salas, [facility] [address] [place] [address] Assigned Behavioral Health Provider 08/08/24 Randy Maradiaga DO 909 [place] [address] Assigned Neuroscience Provider 08/08/24 Tete Wang MD [address] [place] [address] Genetics, Clinical 10/30/24 Dahlia Joyce MD 909 [place] [address] Radiology Neuroradiology 11/17/24 Lisa Zambrano MD 6405 [facility] [address] [place], [place] 232155 Assigned Heart and Vascular Provider 12/06/24 Tete Wang MD 2450 [place], [place] 658784 Assigned Pediatric Specialist Provider 01/06/25 Any Joiner MD [address] [place] [address] 522395 Assigned Pulmonology Provider 02/05/25 Myles Bindu, OD [address] [place] [address] 043655 Assigned Surgical Provider 03/08/25 Aftab Finn MD [address] [place] [address] [address] Dermatology 03/17/25 Aftab Finn MD [address] [place] [address] Assigned Dermatology Provider 04/07/25 Red De Los Santos LSW Lead Presiding Steward Primary Care - CC 05/26/25 Santa Menon, PA-C [address] [place] [address] 519095 Physician Editorial Writer Physical Medicine and Rehabilitation 02/25/25 Alessandra Pereira RN Specialty Presiding Steward Neurological Surgery 06/02/25 documented as of this encounter
--- OUTSIDE RECORDS SUMMARY | 2025-07-07 18:20 | XMS_ITS | Encounter Summary ---
Author Organization [facility] Address [address] [place] [address] Care Team Providers Care Customer Care Specialist Name Role Phone Winston Villatoro OD Unavailable [phone] Denise Woodson APRN FINAL INSPECTION SUPERVISOR Unavailable [phone] Usha Simon APRN FINAL INSPECTION SUPERVISOR Unavailable + [phone] Dangelo Salinas MD Unavailable Joya Lira RP Unavailable [phone] Joya Lira [facility] Unavailable Fabi Coates MD Unavailable [phone] Arthur Salas HEAVY TRUCK TECHNICIAN Unavailable +[phone] Randy Maradiaga DO Unavailable + Tete Wang MD Unavailable [phone] Dahlia Joyce MD Unavailable [phone] Lisa Zambrano MD Unavailable + [phone] Tete Wang MD Unavailable +[phone] Any Joiner MD Unavailable [phone] Bindu Bueno OD Unavailable +[phone] Aftab Finn MD Unavailable Aftab Finn MD Unavailable Denise Woodson APRN FINAL INSPECTION SUPERVISOR Primary Care Provider Red De Los Santos COMPENSATION AND BENEFITS ADMINISTRATOR Unavailable [phone] Santa Menon PA-C Unavailable [phone] Alessandra Pereira RN Unavailable Reason for Visit * Reason Onset Date Comments Call Back 07/05/2025 Encounter Details Date Type Department Care Team (Late st Contact Info) Description 07/05/2025 Telephone [facility] Physical Medicine and Rehabilitation Clinic [address] [place] [address] Santa Menon PA-C [address] [place] [address] Call Back Social History Tobacco Use Types Packs/Day Years [...] re latives? 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 Not on file Not on file Not on file Not on file Not on file Not on file documented as of this encounter Miscellaneous Notes * Telephone Encounter - Hannah Kaur RN - 07/07/2025 2:11 PM CDT Left another voice mail to offer possibly to schedule a phone time for PT provider to give updates to MsVicenta Lynsey BLAKE Asked to leave answer on teletypewriter operator's voice mail # [phone] Checked [facility] in Care Everywhere but could not locate any notes from rehab therapy Hannah Kaur RN on 07/07/2025 at 2:15 PM * Telephone Encounter - Filemon Jeter - 07/06/2025 3:02 PM CDT Health Call Center Phone Message May a detailed message be left on voicemail: yes Reason for Call: Other: May returning missed call from clinic, calling to discuss mutual patient. VM is private and secure to leave Vicenta Olvera's call back #[phone] Action Taken: Message routed to: [facility] ([facility]): PM&R Travel Screening: Not Applicable * Telephone Encounter - Hannah Kaur RN - 07/05/2025 4:04 PM CDT teletypewriter operator called in provider's absence today to respond to this inquiry The voice mail greeting does not identify a physical therapist or clinic. Director Financial Systems left a generic message that the caller may leave a confidential voice mail message at [phone] with more details. Hannah Kaur RN on 07/05/2025 at 4:06 PM * Telephone Encounter - Stephanie Guajardo - 07/05/2025 2:26 PM CDT Health Call Center Phone Message May a detailed message be left on voicemail: yes Reason for Call: Please call May Rodriguez, physical therapist request a call back to discuss patient's care. Action Taken: PM&R Travel Screening: Not Applicable Date of Service: documented in this encounter Plan of Treatment Upcoming Encounters Date Type Department Care Team (Late st Contact Info) Description 07/09/2025 11:00 AM CDT Virtual Visit [address] [phone] Bindu Bueno, OD 909 [place], [place] [phone] Rubi Johnson, OT [address] 823757 07/15/2025 2:30 PM CDT Office Visit [facility] [address] [place] [address] Denise Woodson APRN FINAL INSPECTION SUPERVISOR [address] [place], [place] [id number] 07/16/2025 11:00 AM CDT Virtual Visit [address] [phone] Bindu Bueno, OD 909 [place], [place] [phone] Rubi Johnson, OT [address] 374[address] 07/23/2025 11:00 AM SENIOR EDUCATION SPECIALIST Virtual Visit [address] [phone] Bindu Bueno, OD 909 [place] [address] [facility]i Johnson[facility] OT [facility] 150 [place] [address] 08/03/2025 11:00 AM SENIOR EDUCATION SPECIALIST Virtual Visit [facility] 150 [place] [phone] Bindu Bueno, OD 909 [place], [place] 787545 Rubi Johnson, OT [address] [address] 08/03/2025 4:30 PM SENIOR EDUCATION SPECIALIST Virtual Visit [facility] [address] [phone] Any Joiner MD [address] [place] [address] 770165 08/17/2025 12:45 PM SENIOR EDUCATION SPECIALIST Virtual Visit [address] [phone] Bindu Bueno, OD 909 [place] [address] Rubi Johnson, OT [address] [address] 10/04/2025 10:15 AM SENIOR EDUCATION SPECIALIST Virtual Visit [facility] Rehabilitation Clinic [address] 3rd [place] [phone] Santa Menon PA-C [address] [place] [address] 006795 01/19/2026 11:30 AM CDT Office Visit [facility] Neurology Clinic [address] 3rd [place] [address] Randy Maradiaga, [address] [place] [address] 748695 documented as of this encounter Goals Goal [...] work. 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 Patient expressed understanding of goal: yes Action steps to achieve this goal: I will continue to lean on my informal supports of my: family I will continue to work on the application(s) for: Social Security Disability and Computer Specialist Disability through Standard Insurance I will use [...] Noted Time PHQ-9 Depression Total Score: 12 07/01/ 025 11:46 AM CDT documented as of this encounter Care Teams Customer Care Specialist Relationship Specialty Start Date End Date Winston Villatoro OD [facility] [place] [address] [place] [address] PCP - Ophthalmology Ophthalmology 02/11/13 Denise Woodson APRN FINAL INSPECTION SUPERVISOR [address] [place] [address] PCP - General Family Practice 05/26/25 Denise Woodson APRN FINAL INSPECTION SUPERVISOR [address] [place] [address] Assigned PCP 07/17/20 Usha Simon APRN FINAL INSPECTION SUPERVISOR 909 [facility] [id number] [place] [address] Nurse Practitioner Neurological Surgery 01/24/24 Dangelo Salinas MD [address] [place] [address] Neurology 01/27/24 Joya Lira [facility] [address] [place] [address] Pharmacist Pharmacist 05/25/24 Joya Lira [facility] [address] [place] [address] Assigned MTM Pharmacist 06/08/24 Fabi Coates MD [address] [place] [address] 75 [place] [address] Genetics, Clinical 06/18/24 Arthur Salas, HEAVY TRUCK TECHNICIAN [address] [place] [address] [id number] Assigned Behavioral Health Provider 08/08/24 Randy Maradiaga DO [address] [place] [address] Assigned Neuroscience Provider 08/08/24 Tete Wang MD [address] [place] [address] [phone] Genetics, Clinical 10/30/24 Dahlia Joyce MD [address] [place] [address] 551335 Radiology Neuroradiology 11/17/24 [place] [address] [place], [place] [phone] [place] [address] 134235 Assigned Heart and Vascular Provider 12/06/24 Tete Wang MD [address] [place] [address] 618624 Assigned Pediatric Specialist Provider 01/06/25 Any Joiner MD [address] [address] Assigned Pulmonology Provider 02/05/25 Bindu Bueno OD [address] [place] [address] 528215 Assigned Surgical Provider 03/08/25 Aftab Finn MD [address] 129790 Dermatology 03/17/25 Aftab Finn MD 500 [place] [address] Assigned Dermatology Provider 04/07/25 Red De Los Santos LSW Lead Replenishment Buyer Primary Care - CC 05/26/25 Santa Menon PA-C 9 [place] [address] Physician Financial Systems Manager Physical Medicine and Rehabilitation 02/25/25 Alessandra Pereira RN Specialty Replenishment Buyer Neurological Surgery 06/02/25 documented as of this encounter
--- OUTSIDE RECORDS SUMMARY | 2025-07-07 18:20 | XMS_ITS | Encounter Summary ---
Author Organization [facility] Address [address] [place] [address] Care Team Providers Care Solar Energy Engineer Name Role Phone Winston Villatoro OD Unavailable [phone] Denise Woodson APRN INSURANCE LOSS ASSESSOR Unavailable [phone] Usha Simon APRN INSURANCE LOSS ASSESSOR Unavailable + [phone] Dangelo Salinas MD Unavailable Joya Lira RP Unavailable [phone] Joya Lira [facility] Unavailable Fabi Coates MD Unavailable [phone] Arthur Salas LIME PULLER Unavailable [phone] Randy Maradiaga DO Unavailable + Tete Wang MD Unavailable [phone] Dahlia Joyce MD Unavailable [phone] Lisa Zambrano MD Unavailable + [phone] Tete Wang MD Unavailable [phone] Any Joiner MD Unavailable [phone] Bindu Bueno OD Unavailable [phone] Aftab Finn MD Unavailable Aftab Finn MD Unavailable Denise Woodson APRN INSURANCE LOSS ASSESSOR Primary Care Provider Red De Los Santos DYNAMIC BALANCER SET UP WORKER Unavailable [phone] Santa Menon PA-C Unavailable [phone] Alessandra Pereira RN Unavailable Encounter Details Date Type Department Care Team (Late st Contact Info) Description 07/07/2025 MyC Medical Advice [facility] Physical Medicine and Rehabilitation Clinic [address] [place] [address] Santa Menon PA-C [address] [place] [address] Social History Tobacco Use Types Packs/Day [...] re latives? 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 Yarsanism Services Not on file 01/22 Active Member [...] Answer Date Recorded PHQ-2 Score 2 07/01/2025 [facility] [place] of Occupat ional Health - Occupational Stress [...] on file Legal Sex Female 4:05 AM DICTAPHONE MECHANIC Gender Identity Not on file Sexual [...] Description 07/09/2025 11:00 AM CDT Virtual Visit [address] [phone] BuenoBindu, OD 909 [place], [place] 444705 Rubi Johnson, OT [facility] [address] 430667 07/15/2025 2:30 PM CDT Office Visit [facility] [address] [place] [phone] Denise Woodson APRN INSURANCE LOSS ASSESSOR [address] [place], [place] 3748668 07/16/2025 11:00 AM CDT Virtual Visit [address] [phone] MylesBindu, OD 909 [place], [place] 757[address] Rubi Johnson, OT [address] 654817 07/23/2025 11:00 AM DICTAPHONE MECHANIC Virtual Visit [address] [phone] MylesBindu, OD 909 [place], [place] 845095 Rubi Johnson, OT [address] 010567 08/03/2025 11:00 AM DICTAPHONE MECHANIC Virtual Visit [address] [phone] Bindu Bueno, OD 909 [place] [address] Rubi Johnson, OT [address] [address] 08/03/2025 4:30 PM DICTAPHONE MECHANIC Virtual Visit [facility] [address] [phone] Any Joiner MD [address] [place] [address] 392985 08/17/2025 12:45 PM DICTAPHONE MECHANIC Virtual Visit [address] [phone] Bindu Bueno, OD 909 [place] [address] Rubi Johnson, OT [address] 206567 10/04/2025 10:15 AM DICTAPHONE MECHANIC Virtual Visit [facility] Physical Medicine and Rehabilitation Clinic [address] [phone] Santa Menon, PAMani [address] [place] [address] 229155 01/19/2026 11:30 AM CDT Office Visit [facility] Neurology Clinic [address] [address] Jefmai Randy Yobany, DO 909 [place] [address] documented as of this encounter Goals Goal [...] work. 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 Patient expressed understanding of goal: yes Action steps to achieve this goal: I will continue to lean on my informal supports of my: family I will continue to work on the application(s) for: Social Security Disability and Automobile Brakes Bonder Disability through Standard Insurance I will use [...] of this encounter Care Teams Solar Energy Engineer Relationship Specialty Start Date End Date Winston Villatoro OD [facility] [address] [place] [address] PCP - Ophthalmology Ophthalmology 02/11/13 Denise Woodson APRN INSURANCE LOSS ASSESSOR [address] [address] [address] PCP - General Family Practice 05/26/25 Denise Woodson APRN INSURANCE LOSS ASSESSOR [address] [address] [address] Assigned PCP 07/17/20 Usha Simon APRN INSURANCE LOSS ASSESSOR [address] [facility] [id number] [place] [address] Nurse Practitioner Neurological Surgery 01/24/24 Dangelo Salinas MD [address] [place] [address] Neurology 01/27/24 Joya Lira RP [address] [place] [address] Pharmacist Pharmacist 05/25/24 Joya Lira RPH [address] [place] [address] Assigned MTM Pharmacist 06/08/24 Fabi Coates MD 420 [facility] 75 [place], [place] 960965 Genetics, Clinical 06/18/24 Arthur Salas, [facility] [address] [place] [address] Assigned Behavioral Health Provider 08/08/24 Randy Maradiaga DO 909 [place], [place] 152665 Assigned Neuroscience Provider 08/08/24 Tete Wang MD [address] [facility] [place] [address] Genetics, Clinical 10/30/24 Dahlia Joyce MD 909 [place] [address] Radiology Neuroradiology 11/17/24 Lisa Zambrano MD 6405 [facility] [address] [place], [place] 053045 Assigned Heart and Vascular Provider 12/06/24 Tete Wang MD 2450 [place], [place] 914154 Assigned Pediatric Specialist Provider 01/06/25 Any Joiner MD [address] [place] [address] 077195 Assigned Pulmonology Provider 02/05/25 Myles Bindu, OD [address] [place] [address] 314295 Assigned Surgical Provider 03/08/25 Aftab Finn MD [address] [address] Dermatology 03/17/25 Aftab Finn MD [address] [place] [address] Assigned Dermatology Provider 04/07/25 Red De Los Santos LSW Lead Adjuster And Inspector Primary Care - CC 05/26/25 Santa Menon, PA-C [address] [place] [address] 326695 Physician Payroll Clerk Physical Medicine and Rehabilitation 02/25/25 Alessandra Pereira RN Specialty Adjuster And Inspector Neurological Surgery 06/02/25 documented as of this encounter
--- OUTSIDE RECORDS SUMMARY | 2025-07-07 18:20 | XMS_ITS | Encounter Summary ---
Author Organization [facility] Address [address] [place] [address] Care Team Providers Care Farmer Diversified Crops Name Role Phone Winston Villatoro OD Unavailable [phone] Denise Woodson APRN BYPRODUCTS SUPERVISOR Unavailable [phone] Usha Simon APRN BYPRODUCTS SUPERVISOR Unavailable + [phone] Dangelo Salinas MD Unavailable Joya Lira RP Unavailable [phone] Joya Lira [facility] Unavailable Fabi Coates MD Unavailable [phone] Arthur Salas ADMINISTRATIVE COORDINATOR Unavailable [phone] Randy Maradiaga DO Unavailable + Tete Wang MD Unavailable [phone] Dahlia Joyce MD Unavailable [phone] Lisa Zambrano MD Unavailable + [phone] Tete Wang MD Unavailable [phone] Any Joiner MD Unavailable [phone] Bindu Bueno OD Unavailable [phone] Aftab Finn MD Unavailable Aftab Finn MD Unavailable Denise Woodson APRN BYPRODUCTS SUPERVISOR Primary Care Provider FilibertoDarshana MIS MANAGER Unavailable [phone] Santa MenonC Unavailable [phone] Alessandra Pereira RN Unavailable Encounter Details Date Type Department Care Team (Late st Contact Info) Description 05/28/2025 MyC Medical Advice [facility] Care Coordination [facility] [address] [place] [phone] Filiberto Red, OSEI Social History Tobacco Use Types Packs/Day Years [...] Answer Date Recorded PHQ-2 Score 2 05/25/2025 [facility] [place] of Occupat ional Health - Occupational Stress [...] on file 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 Sex 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 SYSTEM 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 Gender Identity Not on file Sexual [...] Description 07/09/2025 11:00 AM CDT [facility] [address] [place] [phone] Bindu Bueno, OD 909 [place], [place] 625815 Rubi Johnson, OT [address] [address] 07/15/2025 2:30 PM CDT Office Visit [facility] [address] [place] [phone] Denise Woodson APRN [facility] [address] [place] [address] 07/16/2025 11:00 AM CDT Virtual Visit [address] [phone] Bindu Bueno, OD 909 [place], [place] 845[address] Rubi Johnson, OT [address] [address] 07/23/2025 11:00 AM VIDEO SYSTEM REPAIRER Virtual Visit [address] [phone] Bindu Bueno, OD 909 [place], [place] 155015 Rubi Johnson, OT [address] [address] 08/03/2025 11:00 AM VIDEO SYSTEM REPAIRER Virtual Visit [facility] 150 [place] [address] Bindu Bueno, OD 909 [place], [place] 855175 Rubi Johnson, OT [address] [address] 08/03/2025 4:30 PM VIDEO SYSTEM REPAIRER Virtual Visit [facility] [address] [address] Any Joiner MD [address] [place] [address] 479055 08/17/2025 12:45 PM VIDEO SYSTEM REPAIRER Virtual Visit [address] [phone] Bindu Bueno, OD 909 [place], [place] 271485 Rbui Johnson, OT [address] [address] 10/04/2025 10:15 AM VIDEO SYSTEM REPAIRER Virtual Visit [facility] Physical Medicine and Rehabilitation Clinic [address] [phone] Santa Menon PANilesC [address] [place] [address] 156275 01/19/2026 11:30 AM CDT Office Visit [facility] Neurology Clinic [address] [address] Randy Maradiaga, [address] [address] documented as of this encounter Goals Goal [...] work. Strengths: Working with previous employer for Alf Disability. 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 Patient expressed understanding of goal: yes Action steps to achieve this goal: I will continue to lean on my informal supports of my: family I will continue to work on the application(s) for: Social Security Disability and Alf Disability through Standard Insurance I will use [...] documented as of this encounter Care Teams Farmer Diversified Crops Relationship Specialty Start Date End Date Winston Villatoro OD [facility] [address] [facility] [address] [place] [address] PCP - Ophthalmology Ophthalmology 02/11/13 Denise Woodson APRN BYPRODUCTS SUPERVISOR [address] [address] [address] PCP - General Family Practice 05/26/25 Denise Woodson APRN BYPRODUCTS SUPERVISOR [address] [address] [address] Assigned PCP 07/17/20 Usha Simon APRN BYPRODUCTS SUPERVISOR 909 [facility] [id number] [place] [address] Nurse Practitioner Neurological Surgery 01/24/24 Dangelo Salinas MD [address] [place] [address] Neurology 01/27/24 Joya Lira [facility] [address] [place] [address] Pharmacist Pharmacist 05/25/24 Joya Lira [facility] [address] [place] [address] Assigned MTM Pharmacist 06/08/24 Fabi Coates MD [address] [place] [address] 75 [place] [address] Genetics, Clinical 06/18/24 Arthur Salas [facility] [address] [place] [address] Assigned Behavioral Health Provider 08/08/24 Randy Maraidaga DO [address] [place] [address] Assigned Neuroscience Provider 08/08/24 Tete Wang MD 2450 [place] [address] Genetics, Clinical 10/30/24 Dahlia Joyce MD [address] [place] [address] 878525 Radiology Neuroradiology 11/17/24 Lisa Zambrano MD 6405 [facility] [address] [place] [address] Assigned Heart and Vascular Provider 12/06/24 [place] [address] [place] [address] Assigned Pediatric Specialist Provider 01/06/25 Any Joiner MD [address] [place] [address] 211235 Assigned Pulmonology Provider 02/05/25 Bindu Bueno OD [address] [place] [address] 395985 Assigned Surgical Provider 03/08/25 Aftab Finn MD [address] 402[address] Dermatology 03/17/25 Aftab Finn MD [address] [place] [address] Assigned Dermatology Provider 04/07/25 Red De Los Santos, OSEI Lead Operations Supervisor Chemical Cleaning Primary Care - CC 05/26/25 Santa Menon, PA-C [address] [place] [address] 505005 Physician Ironer Or Presser Physical Medicine and Rehabilitation 02/25/25 Alessandra Pereira, GEMA Specialty Operations Supervisor Chemical Cleaning Neurological Surgery 06/02/25 documented as of this encounter
--- OUTSIDE RECORDS SUMMARY | 2025-07-07 18:20 | XMS_ITS | Encounter Summary ---
Author Organization [facility] Address [address] [place] [address] Care Team Providers Care Property Disposal Manager Name Role Phone Winston Villatoro OD Unavailable [phone] Denise Woodson APRN JEWEL BEARING DRILLER Unavailable [phone] Usha Simon APRN JEWEL BEARING DRILLER Unavailable + [phone] Dangelo Salinas MD Unavailable Joya Lira RP Unavailable [phone] Joya Lira [facility] Unavailable Fabi Coates MD Unavailable [phone] Arthur Salas RAIL CREW MEMBER Unavailable [phone] Randy Maradiaga DO Unavailable + Tete Wang MD Unavailable [phone] Dahlia Joyce MD Unavailable +[phone] Lisa Zambrano MD Unavailable + [phone] Tete Wang MD Unavailable +[phone] Any Joiner MD Unavailable [phone] Bindu Bueno OD Unavailable +[phone] Aftab Finn MD Unavailable Aftab Finn MD Unavailable Denise Woodson APRN JEWEL BEARING DRILLER Primary Care Provider Red De Los Santos ARCHITECTURAL PRACTICE MANAGER Unavailable [phone] Santa Menon PA-C Unavailable Encounter Details Date Type Department Care Team (Latest Contact Info) Description 06/01/2025 Travel Social History Tobacco Use Types Packs/Day [...] re latives? 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 Gender Identity Not on file Sexual [...] Description 07/09/2025 11:00 AM CDT Virtual Visit [address] [phone] Bindu Bueno, OD [address] [place] [address] Rubi Johnson, OT [facility] [address] [place] [address] 07/15/2025 2:30 PM CDT Office Visit [facility] [address] [place] [address] Denise Woodson, BARRERA JEWEL BEARING DRILLER [address] [place] [address] 07/16/2025 11:00 AM CDT Virtual Visit [address] [phone] Bindu Bueno, OD 909 [place], [place] 8[address] Rubi Johnsno, OT [address] [address] 07/23/2025 11:00 AM RUBBER GOODS INSPECTOR Virtual Visit [address] [phone] Myles Bindu, OD 909 [place] [address] Rubi Johnson, OT [address] [address] 08/03/2025 11:00 AM RUBBER GOODS INSPECTOR Virtual Visit [address] [phone] Bueno, Bindu, OD 909 [place], [place] 479245 Rubi Johnson, OT [address] [address] 08/03/2025 4:30 PM RUBBER GOODS INSPECTOR Virtual Visit [facility] [address] [phone] Any Joiner MD [address] 965925 08/17/2025 12:45 PM RUBBER GOODS INSPECTOR Virtual Visit [facility] [address] [phone] Bindu Bueno, OD [address] [place] [address] 019155 Rubi Johnson, OT [address] [address] 10/04/2025 10:15 AM RUBBER GOODS INSPECTOR Virtual Visit [facility] [address] [phone] Santa Menon, PA-C [address] [place] [address] 584015 01/19/2026 11:30 AM CDT Office Visit [facility] [address] [address] Randy Maradiaga DO [address] [place] [address] 734875 documented as of this encounter Goals Goal [...] work. Strengths: Working with previous employer for [employer] Dis[employer]. Working with a [employer] for Federal Disability. 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 Loan Services Librarian Disability through Standard Insurance I will use [...] documented as of this encounter Care Teams Property Disposal Manager Relationship Specialty Start Date End Date Winston Villatoro OD [facility] [place] [address] [place] [address] PCP - Ophthalmology Ophthalmology 02/11/13 Denise Woodson APRN JEWEL BEARING DRILLER [address] [place] [address] PCP - General Family Practice 05/26/25 Denise Woodson APRN JEWEL BEARING DRILLER [address] [place] [place] [address] Assigned PCP 07/17/20 Usha Simon APRN JEWEL BEARING DRILLER 909 [facility] [id number] [place] [address] Nurse Practitioner Neurological Surgery 01/24/24 Dangelo Salinas MD [address] [place] [address] Neurology 01/27/24 Joya Lira [facility] [address] [place] [address] Pharmacist Pharmacist 05/25/24 Joya Lira [facility] [address] [place] [address] Assigned MTM Pharmacist 06/08/24 Fabi Coates MD [address] [place] [address] 75 [place] [address] Genetics, Clinical 06/18/24 Arthur Salas [facility] [address] [place] [address] Assigned Behavioral Health Provider 08/08/24 Randy Maradiaga DO 9 [place], [place] 434565 Assigned Neuroscience Provider 08/08/24 Tete Wang MD 2450 [place] [address] Genetics, Clinical 10/30/24 Dahlia Joyce MD [address] [place] [address] 416605 Radiology Neuroradiology 11/17/24 Lisa Zambrano MD 6405 [facility] [address] [place] [address] Assigned Heart and Vascular Provider 12/06/24 [place] [address] [place] [address] Assigned Pediatric Specialist Provider 01/06/25 Any Joiner MD [address] [place] [address] 939935 Assigned Pulmonology Provider 02/05/25 Bindu Bueno OD [address] [place] [address] 428345 Assigned Surgical Provider 03/08/25 Aftab Finn MD [address] [place] [address] 640110 Dermatology 03/17/25 Aftab Finn MD [address] [place] [address] 533635 Assigned Dermatology Provider 04/07/25 Red De Los Santos LSW Lead Records Administrator Primary Care - CC 05/26/25 Santa Menon PANilesC [address] [place] [address] 080955 Physician Chiropractic Physician Physical Medicine and Rehabilitation 02/25/25 documented as of this encounter
--- OUTSIDE RECORDS SUMMARY | 2025-07-07 18:21 | XMS_ITS | Encounter Summary ---
Author Organization [facility] Address [address] [place] [address] Care Team Providers Care Customer Supply Chain Analyst Name Role Phone Winston Villatoro OD Unavailable [phone] Denise Woodson APRN FILLING HAULER WEAVING Unavailable +[phone] Usha Simon APRN FILLING HAULER WEAVING Unavailable + [phone] Dangelo Salinas MD Unavailable Joya Lira RP Unavailable [phone] Joya Lira [facility] Unavailable +[phone] Fabi Coates MD Unavailable [phone] Arthur Salas CREDIT RISK ANALYTICS MANAGER Unavailable [phone] Randy Maradiaga DO Unavailable + Tete Wang MD Unavailable [phone] Dahlia Joyce MD Unavailable [phone] Lisa Zambrano MD Unavailable + [phone] Tete Wang MD Unavailable [phone] Any Joiner MD Unavailable [phone] Bindu Bueno OD Unavailable [phone] Aftab Finn MD Unavailable Aftab Finn MD Unavailable Denise Woodson APRN FILLING HAULER WEAVING Primary Care Provider Red De Los Santos LABORER HEADING Unavailable [phone] Santa Menon PA-C Unavailable [phone] Alessandra Pereira RN Unavailable Encounter Details Date Type Department Care Team (Latest Contact Info) Description 06/19/2025 Travel Social History Tobacco Use Types Packs/Day [...] re latives? 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 Gender Identity Not on file Sexual [...] Description 07/09/2025 11:00 AM CDT Virtual Visit [address] [phone] Bindu Bueno, AMELIE [address]09 [place] [address] Rubi Johnson, OT [address] [address] 07/15/2025 2:30 PM CDT Office Visit [facility] [address] [place] [phone] Denise Woodson, SUPERVISOR [employer] [facility] [address] [place] [address] 07/16/2025 11:00 AM CDT Virtual Visit [address] [phone] Bindu Bueno, OD 909 [place], [place] 938[address] Rubi Johnson, OT [address] 324[address] 07/23/2025 11:00 AM DECORATOR STORE Virtual Visit [address] [phone] Bindu Bueno, OD 909 [place] [address] Rubi Johnson, OT [address] 658867 08/03/2025 11:00 AM DECORATOR STORE Virtual Visit [address] [phone] Bindu Bueno, OD 909 [place] [address] Rubi Johnson, OT [address] 442537 08/03/2025 4:30 PM DECORATOR STORE Virtual Visit [facility] Health [address] [phone] Any Joiner MD [address] 142715 08/17/2025 12:45 PM DECORATOR STORE Virtual Visit [facility] [address] [phone] Bindu Bueno, OD [address] [place] [address] 271095 Rubi Johnson, OT [address] 088917 10/04/2025 10:15 AM DECORATOR STORE Virtual Visit [facility] [address] [phone] Santa Menon, PANilesC [address] [place] [address] 375705 01/19/2026 11:30 AM CDT Office Visit [facility] Neurology [facility] [address] [address] Randy Maradiaga DO [address] [place] [address] 460985 documented as of this encounter Goals Goal [...] work. Strengths: Working with previous employer for [employer] Disability. 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 I will use [...] as of this encounter Care Teams Customer Supply Chain Analyst Relationship Specialty Start Date End Date Winston Villatoro OD [facility] [address] [facility] [address] [place] [address] PCP - Ophthalmology Ophthalmology 02/11/13 Denise Woodson APRN FILLING HAULER WEAVING [address] [place] [address] PCP - General Family Practice 05/26/25 Denise Woodson APRN FILLING HAULER WEAVING [address] [place] [address] Assigned PCP 07/17/20 Usha Simon APRN FILLING HAULER WEAVING 909 [facility] [id number] [place] [address] Nurse Practitioner Neurological Surgery 01/24/24 Dangelo Salinas MD [address] [place] [address] Neurology 01/27/24 [facility] [address] [place] [address] Pharmacist Pharmacist 05/25/24 [facility] [address] [place] [address] Assigned MTM Pharmacist 06/08/24 Fabi Coates MD [address] [place] [address] 75 [place], [place] 221685 Genetics, Clinical 06/18/24 Arthur Salas, [facility] [address] [place] [address] Assigned Behavioral Health Provider 08/08/24 Randy Maradiaga DO [address] [place] [address] 318925 Assigned Neuroscience Provider 08/08/24 [place] [address] [place] [address] Genetics, Clinical 10/30/24 Dahlia Joyce MD [address] [place] [address] Radiology Neuroradiology 11/17/24 Lisa Zambrano MD 6405 [facility] [address] [place] [address] Assigned Heart and Vascular Provider 12/06/24 Tete Wang MD 2450 [place] [address] Assigned Pediatric Specialist Provider 01/06/25 Any Joiner MD [address] [place] [address] 276 [place] [address] Assigned Pulmonology Provider 02/05/25 Bindu Bueno OD [address] [place] [address] Assigned Surgical Provider 03/08/25 Aftab Finn MD [address] [address] Dermatology 03/17/25 Aftab Finn MD [address] [place] [address] Assigned Dermatology Provider 04/07/25 Red De Los Santos LSW Lead Senior Net Programmer Primary Care - CC 05/26/25 Santa Menon, PA-C [address] [place] [address] 707735 Physician Flat Cutter Physical Medicine and Rehabilitation 02/25/25 Alessandra Pereira, RN Specialty Senior Net Programmer Neurological Surgery 06/02/25 documented as of this encounter
--- OUTSIDE RECORDS SUMMARY | 2025-07-07 18:21 | XMS_ITS | Encounter Summary ---
Author Organization [facility] Address [address] [place] [address] Care Team Providers Care Dexigraph Operator Name Role Phone Winston Villatoro OD Unavailable [phone] Denise Woodson APRN CORNER BRACE BLOCK MACHINE OPERATOR Unavailable [phone] Usha Simon APRN CORNER BRACE BLOCK MACHINE OPERATOR Unavailable + [phone] Dangelo Salinas MD Unavailable Joya Lira RP Unavailable [phone] Joya Lira [facility] Unavailable Fabi Coates MD Unavailable [phone] Arthur Salas COLOR MATCHER Unavailable +[phone] Randy Maradiaga DO Unavailable + Tete Wang MD Unavailable +[phone] Dahlia Joyce MD Unavailable [phone] Lisa Zambrano MD Unavailable + [phone] Tete Wang MD Unavailable [phone] Any Joiner MD Unavailable [phone] Bindu Bueno OD Unavailable [phone] Aftab Finn MD Unavailable Aftab Finn MD Unavailable Denise Woodson APRN CORNER BRACE BLOCK MACHINE OPERATOR Primary Care Provider Red De Los Santos AUTOMOTIVE BUYER Unavailable [phone] Santa Menon PA-C Unavailable [phone] Alessandra Pereira RN Unavailable Reason for Visit * Reason Onset Date Comments Call Back 06/11/2025 Biopsy schedule Encounter Details Date Type Department Care Team (Late st Contact Info) Description 06/11/2025 Telephone [facility] [address] 3[address] [place] [address] Aftab Finn MD 500 [place] [address] Call Back (Biopsy schedule) Social History Tobacco Use Types Packs/Day Years [...] re latives? 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 Thank you Action Taken: TE SENT Travel Screening: Not Applicable Date of Service: Thank you! [facility] documented in this encounter Plan of Treatment Upcoming Encounters Date Type Department Care Team (Late st Contact Info) Description 07/09/2025 11:00 AM CDT Virtual Visit [address] [phone] Bindu Bueno, OD 909 [place] [address] Rubi Johnson, OT [address] 598507 07/15/2025 2:30 PM CDT Office Visit [facility] [address] [place] [address] Denise Woodson APRN [facility] [address] [place], [place] 5860468 07/16/2025 11:00 AM CDT Virtual Visit [address] [phone] Bindu Bueno, OD 909 [place], [place] [phone] Rubi Johnson, OT [address] [address] 07/23/2025 11:00 AM HOOP PUNCHER Virtual Visit [address] [phone] Bindu Bueno, OD 909 [place], [place] 621315 Rubi Johnson, OT [address] [address] 08/03/2025 11:00 AM HOOP PUNCHER Virtual Visit [address] [phone] BuenoBindu flores, OD 909 [place], [place] 139985 Rubi Johnson, OT [address] [address] 08/03/2025 4:30 PM HOOP PUNCHER Virtual Visit [facility] [address] [phone] Any Joiner MD [address] [place] [address] 610735 08/17/2025 12:45 PM HOOP PUNCHER Virtual Visit [address] [phone] Bindu Bueno, OD 909 [place], [place] 589485 Rubi Johnson, OT [address] [address] 10/04/2025 10:15 AM HOOP PUNCHER Virtual Visit [facility] [address] [phone] Santa Menon PA-C [address] [place] [address] 662845 01/19/2026 11:30 AM CDT Office Visit [facility]rology [facility] [address] [phone] Randy Maradiaga DO [address] [place] [address] 884835 documented as of this encounter Goals Goal [...] employer for [employer] Disability. Working with a Boats [employer] for Federal Disability. Patient expressed understanding of goal: yes Action steps to achieve this goal: I will continue to lean on my informal supports of my: family I will continue to work on the application(s) for: Social Security Disability and [employer] Disability through Standard Insurance I will use [...] documented as of this encounter Care Teams Dexigraph Operator Relationship Specialty Start Date End Date Winston Villatoro OD [facility] [place] [address] [place] [address] PCP - Ophthalmology Ophthalmology 02/11/13 Denise Woodson APRN CORNER BRACE BLOCK MACHINE OPERATOR [address] [address] [address] PCP - General Family Practice 05/26/25 Denise Woodson APRN CORNER BRACE BLOCK MACHINE OPERATOR [address] [place] [address] Assigned PCP 07/17/20 Usha Simon APRN CORNER BRACE BLOCK MACHINE OPERATOR [address] [place] [address] [address] Nurse Practitioner Neurological Surgery 01/24/24 Dangelo Salinas MD [address] [place] [address] Neurology 01/27/24 Joya Lira RPH [address] [place] [address] Pharmacist Pharmacist 05/25/24 Joya Lira RPH [address] [place] [address] Assigned MTM Pharmacist 06/08/24 Fabi Coates MD [address] [place] [address] 75 [place] [address] Genetics, Clinical 06/18/24 Arthur Salas COLOR MATCHER [address] [address] Assigned Behavioral Health Provider 08/08/24 Randy Maradiaga DO 9 [place], [place] 647705 Assigned Neuroscience Provider 08/08/24 Tete Wang MD [address] [place] [address] 961684 Genetics, Clinical 10/30/24 Dahlia Joyce MD [address] [place] [address] 682385 Radiology Neuroradiology 11/17/24 Lisa Zambrano MD [address] [place] [address] 917855 Assigned Heart and Vascular Provider 12/06/24 Tete Wang MD [address] [place] [address] 132934 Assigned Pediatric Specialist Provider 01/06/25 Any Joiner MD [address] [place] [address] 276 [place], [place] [phone] Assigned Pulmonology Provider 02/05/25 Bindu Bueno, AMELIE 909 [place], [place] 318955 Assigned Surgical Provider 03/08/25 Aftab Finn MD [address] [place], [place] 049270 Dermatology 03/17/25 Aftab Finn MD 500 [place], [place] 302685 Assigned Dermatology Provider 04/07/25 Red De Los Santos LSW Lead Bass Fisher Primary Care - CC 05/26/25 Santa Menon, PA-C [address] [place] [address] 442025 Physician Building Custodian Physical Medicine and Rehabilitation 02/25/25 Alessandra Pereira, RN Specialty Bass Fisher Neurological Surgery 06/02/25 documented as of this encounter
--- OUTSIDE RECORDS SUMMARY | 2025-07-07 18:21 | XMS_ITS | Encounter Summary ---
Author Organization [place] Address [address] [place] [address] Care Team Providers Care Meat Pickler Name Role Phone Winston Villatoro OD Unavailable [phone] Denise Woodson APRN WEBSPHERE CONSULTANT Unavailable [phone] Usha Simon APRN WEBSPHERE CONSULTANT Unavailable + [phone] Dangelo Salinas MD Unavailable Joya Lira RP Unavailable +[phone] Joya Lira [facility] Unavailable Fabi Coates MD Unavailable [phone] Arthur Salas CHRISTMAS BELL RINGER Unavailable +[phone] Randy Maradiaga DO Unavailable + Tete Wang MD Unavailable +[phone] Dahlia Joyce MD Unavailable +[phone] Lisa Zambrano MD Unavailable + [phone] Tete Wang MD Unavailable +[phone] Any Joiner MD Unavailable [phone] Bindu Bueno OD Unavailable [phone] Aftab Finn MD Unavailable Aftab Finn MD Unavailable Denise Woodson APRN WEBSPHERE CONSULTANT Primary Care Provider Red De Los Santos TANK CHARGER Unavailable [phone] Santa MenonC Unavailable [phone] Alessandra Pereira RN Unavailable Encounter Details Date Type Department Care Team (Late st Contact Info) Description 06/23/2025 MyC Medical Advice [facility] [address] [address] Any Joiner MD 420 [facility] 276 [place] [address] BPD (bronchopulmonary dysplasia) (H) (Primary Dx) Social History Tobacco Use [...] re latives? 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 Not on file Not on file Not on file Not on file Not on file Not on file documented as of this encounter Plan of Treatment Upcoming Encounters Date Type Department Care Team (Late st Contact Info) Description 07/09/2025 11:00 AM CDT Virtual Visit [facility] [address] [place] [phone] Bindu Bueno, OD [address] [place], [place] 001255 Rubi Johnson, OT FV [address] 5[address] 07/15/2025 2:30 PM CDT Office Visit [facility] [address] [place] [phone] Denise Woodson, BARRERA WEBSPHERE CONSULTANT [address] [place], [place] 2905268 07/16/2025 11:00 AM CDT Virtual Visit [address] [phone] Bindu Bueno, OD 909 [place] [address] Rubi Johnson, OT [address] 918427 07/23/2025 11:00 AM CLOTHING MANAGER Virtual Visit [address] [phone] Bindu Bueno, OD [address] [place], [place] 764475 Rubi Johnson, OT [address] [address] 08/03/2025 11:00 AM CLOTHING MANAGER Virtual Visit [address] [address] Bindu Bueno, OD [address] [place], [place] 227065 Rubi Johnson, OT [address] [address] 08/03/2025 4:30 PM CLOTHING MANAGER Virtual Visit [facility] [address] [phone] Any Joiner MD [address] [place] [address] 946475 08/17/2025 12:45 PM CLOTHING MANAGER Virtual Visit [address] [phone] Bindu Bueno, OD [address]09 [place] [address] Rubi Johnson, OT [address] [address] 10/04/2025 10:15 AM CLOTHING MANAGER Virtual Visit [facility] [address] 3rd [place] [phone] [place] PANilesC [address] [place] [address] 01/19/2026 11:30 AM CDT Office Visit [facility] [address] 3rd [place] [address] Randy Maradiaga DO [address] [place] [address] documented as of this encounter Goals Goal [...] work. Strengths: Working with previous employer for [employer] Disability. Working with a Manual Winder for Federal Disability. Patient expressed understanding of goal: yes Action steps to achieve this goal: I will continue to lean on my informal supports of my: family I will continue to work on the application(s) for: Social Security Disability and Assisted Disability through Standard Insurance I will use [...] as of this encounter Care Teams Meat Pickler Relationship Specialty Start Date End Date Winston Villatoro, OD [facility] [place] [address] [place] [address] PCP - Ophthalmology Ophthalmology 02/11/13 Denise Woodson APRN WEBSPHERE CONSULTANT [address] [address] [address] PCP - General Family Practice 05/26/25 Denise Woodson APRN WEBSPHERE CONSULTANT [address] [place] [address] Assigned PCP 07/17/20 Usha Simon APRN WEBSPHERE CONSULTANT 909 [facility] [place] [id number] [place] [address] Nurse Practitioner Neurological Surgery 01/24/24 Dangelo Salinas MD [address] [place] [address] Neurology 01/27/24 Joya Lira RPH [address] [place] [address] Pharmacist Pharmacist 05/25/24 Joya Lira [facility] [address] [place] [address] Assigned MTM Pharmacist 06/08/24 Fabi Coates MD [address] [place] [address] 75 [place], [place] 441485 Genetics, Clinical 06/18/24 Arthur Salas [facility] [address] [place] [address] Assigned Behavioral Health Provider 08/08/24 Randy Maradiaga DO 909 [place], [place] 860305 Assigned Neuroscience Provider 08/08/24 Tete Wang MD 2450 [place] [address] Genetics, Clinical 10/30/24 Dahlia Joyce MD [address] [place] [address] Radiology Neuroradiology 11/17/24 Lisa Zambrano MD [address] [place] [address] [place] [address] 704935 Assigned Heart and Vascular Provider 12/06/24 Tete Wang MD [address] [place] [address] 675144 Assigned Pediatric Specialist Provider 01/06/25 Any Joiner MD [address] [place] [address] 534485 Assigned Pulmonology Provider 02/05/25 Bindu Bueno OD [address] [place] [address] 934635 Assigned Surgical Provider 03/08/25 Aftab Finn MD [address] [place] [address] 746280 Dermatology 03/17/25 Aftab Finn MD [address] [place] [address] 278095 Assigned Dermatology Provider 04/07/25 Red De Los Santos LSW Lead Home Connect Lpn Primary Care - CC 05/26/25 [place], PA-C [address] [place] [address] Physician Clean Rice Broker Physical Medicine and Rehabilitation 02/25/25 Alessandra Pereira RN Specialty Home Connect Lpn Neurological Surgery 06/02/25 documented as of this encounter
--- OUTSIDE RECORDS SUMMARY | 2025-07-07 18:21 | XMS_ITS | Encounter Summary ---
Author Organization [place] Address [address] [place] [address] Care Team Providers Care Benefits Director Name Role Phone Winston Villatoro OD Unavailable [phone] Denise Woodson APRN DOOR CLOSER Unavailable [phone] Denise Woodson APRN DOOR CLOSER Primary Care Provider Usha Simon APRN DOOR CLOSER Unavailable + [phone] Dangelo Salinas MD Unavailable Joya Lira RP Unavailable [phone] Joya Lira [facility] Unavailable [phone] Fabi Coates MD Unavailable [phone] Sinyigaya, Specmadi PLUG DRILL OPERATOR Unavailable [phone] Randy Maradiaga DO Unavailable + Tete Wang MD Unavailable +[phone] Dahlia Joyce MD Unavailable [phone] Lisa Zambrano MD Unavailable + [phone] Tete Wang MD Unavailable [phone] Any Joiner MD Unavailable [phone] Bindu Bueno OD Unavailable [phone] Aftab Finn MD Unavailable Randy Maradiaga DO Primary Care Prov ider Aftab Finn MD Unavailable Selena Mcfadden CHW Unavailable [phone] Chintan Denise BARRERA DOOR CLOSER Primary Care Provider Red De Los Santos BONE CHAR KILN TENDER Unavailable [phone] [place] PA-C Unavailable [phone] Alessandra Pereira RN Unavailable Encounter Details Date Type Department Care Team (Late st Contact Info) Description 02/26/2025 MyC Medical Advice [facility] [address] [facility] 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 [address] [place] [phone] Denise Woodson, [facility]A [facility] [address] [place], [place] 0268268 07/16/2025 11:00 AM CDT Virtual Visit [address] [phone] Bindu Bueno, OD 909 [place], [place] 692895 Rubi Johnson, OT [address] 852117 07/23/2025 11:00 AM MACHINIST AUTOMOTIVE Virtual Visit [address] [phone] Bindu Bueno, OD 909 [place] [address] Rubi Johnson, OT [address] [address] 08/03/2025 11:00 AM MACHINIST AUTOMOTIVE Virtual Visit [address] [phone] Bindu Bueno, OD 909 [place] [address] Rubi Johnson, OT [address] [address] 08/03/2025 4:30 PM MACHINIST AUTOMOTIVE Virtual Visit [facility] [address] [phone] Any Joiner MD [address] 694705 08/17/2025 12:45 PM MACHINIST AUTOMOTIVE Virtual Visit [address] [phone] BuenoBindu, OD 909 [place] [address] Rubi Johnson, OT [address] 968477 10/04/2025 10:15 AM MACHINIST AUTOMOTIVE Virtual Visit [facility] [address] 3rd [place] [phone] Santa Menon PAMani [address] [place] [address] 01/19/2026 11:30 AM CDT Office Visit [facility] [place] [address] [place] [address] [address] [place] [phone] Randy Maradiaga DO [address] [place] [address] documented as of this encounter Visit Diagnoses Not on filedocumented in this encounter Additional Health Concerns Assessment Noted Time PHQ-9 Depression Total Score: 025 11:39 AM CDT documented as of this encounter Care Teams Benefits Director Relationship Specialty Start Date End Date Winston Villatoro OD [facility] [place] [address] [place] [address] PCP - Ophthalmology Ophthalmology 02/11/13 Denise Woodson APRN DOOR CLOSER [address] [address] [address] PCP - General Family Practice 09/21/20 04/07/25 Randy Maradiaga DO [address] [place] [address] PCP - General Neurology 04/08/25 05/25/25 Denise Woodson APRN DOOR CLOSER [address] [address] [address] PCP - General Family Practice 05/26/25 Denise Woodson APRN DOOR CLOSER [address] [address] [address] Assigned PCP 07/17/20 Usha Simon APRN DOOR CLOSER 909 [facility] [id number] [place] [address] Nurse Practitioner Neurological Surgery 01/24/24 Dangelo Salinas MD [address] [place] [address] Neurology 01/27/24 Joya Lira [facility] [address] [place] [address] Pharmacist Pharmacist 05/25/24 Joya Lira [facility] [address] [place] [address] Assigned MTM Pharmacist 06/08/24 Fabi Coates MD [address] [place] [address] 75 [place] [address] Genetics, Clinical 06/18/24 Arthur Salas, [facility] [address] [place] [address] Assigned Behavioral Health Provider 08/08/24 Randy Maradiaga DO 909 [place] [address] Assigned Neuroscience Provider 08/08/24 Tete Wang MD [address] [place] [address] Genetics, Clinical 10/30/24 Dahlia Joyce MD [address] [place] [address] Radiology Neuroradiology 11/17/24 Lisa Zambrano MD 6405 [facility] [address] [place] [address] Assigned Heart and Vascular Provider 12/06/24 [place] [address] [place] [address] Assigned Pediatric Specialist Provider 01/06/25 Any Joiner MD [address] [place] [address] 276 [place] [address] Assigned Pulmonology Provider 02/05/25 Bindu Bueno OD [address] [place] [address] Assigned Surgical Provider 03/08/25 Aftab Finn MD [address] [address] Dermatology 03/17/25 Aftab Finn MD [address] [place] [address] 758495 Assigned Dermatology Provider 04/07/25 Selena Mcfadden, W Community Health Worker 05/25/2505/26 Red De Los Santos LSW Lead Rolled Seat Trimmer Primary Care - CC 05/26/25 [place], PANilesC [address] [place] [address] 751655 Physician Ribbon Inker Physical Medicine and Rehabilitation 02/25/25 Alessandra Pereira RN Specialty Rolled Seat Trimmer Neurological Surgery 06/02/25 documented as of this encounter
--- OUTSIDE RECORDS SUMMARY | 2025-07-07 18:21 | XMS_ITS | Encounter Summary ---
Author Organization [place] Address [address] [place] [address] Care Team Providers Care Manager Leadership Development Name Role Phone Winston Villatoro OD Unavailable [phone] Denise Woodson APRN CHAIRLIFT OPERATOR Unavailable [phone] Usha Simon APRN CHAIRLIFT OPERATOR Unavailable + [phone] Dangelo Salinas MD Unavailable Joya Lira RP Unavailable [phone] Joya Lira [facility] Unavailable Fabi Coates MD Unavailable [phone] Arthur Salas TAXI DANCER Unavailable +[phone] Randy Maradiaga DO Unavailable + Tete Wnag MD Unavailable +[phone] Dahlia Joyce MD Unavailable [phone] Lisa Zambrano MD Unavailable + [phone] Tete Wang MD Unavailable [phone] Any Joiner MD Unavailable [phone] Bindu Bueno OD Unavailable [phone] Aftab Finn MD Unavailable Aftab Finn MD Unavailable Denise Woodson APRN CHAIRLIFT OPERATOR Primary Care Provider Red De Los Santos ROOFING APPRENTICE Unavailable [phone] [place] PA-C Unavailable [phone] Alessandra Pereira RN Unavailable Encounter Details Date Type Department Care Team (Late st Contact Info) Description 06/02/2025 MyC Medical Advice [facility] [address] [place] [address] Santa Men[place] PA-C [address] [place] [address] Social History Tobacco Use Types Packs/Day [...] Answer Date Recorded PHQ-2 Score 2 05/25/2025 [facility] [place] of Occupat ional Health - Occupational Stress [...] file Legal Sex Female 4:05 AM CYLINDER GRINDER Gender Identity Not on file Sexual Orientation [...] Description 07/09/2025 11:00 AM CDT Virtual Visit [address] [phone] BuenoBindu, OD 909 [place], [place] 902305 Rubi Johnson, OT FV [address] 451747 07/15/2025 2:30 PM CDT Office Visit [facility] [address] [place] [phone] Denise Woodson APRN CHAIRLIFT OPERATOR [address] [place], [place] 5942768 07/16/2025 11:00 AM CDT Virtual Visit [address] [phone] MylesBindu, OD 909 [place], [place] 263775 Rubi Johnson, OT [address] 397197 07/23/2025 11:00 AM CYLINDER GRINDER Virtual Visit [address] [phone] MylesBindu, OD 909 [place], [place] 214895 Rubi Johnson, OT [address] 651367 08/03/2025 11:00 AM CYLINDER GRINDER Virtual Visit [address] [phone] Bindu Bueno, OD 909 [place] [address] Rubi Johnson, OT [address] [address] 08/03/2025 4:30 PM CYLINDER GRINDER Virtual Visit [facility] [address] [phone] Any Joiner MD [address] [place] [address] 358085 08/17/2025 12:45 PM CYLINDER GRINDER Virtual Visit [address] [phone] Bindu Bueno, OD 909 [place] [address] Rubi Johnson, OT [address] 339467 10/04/2025 10:15 AM CYLINDER GRINDER Virtual Visit [facility] [address] [phone] [place], PAMani [address] [place] [address] 534505 01/19/2026 11:30 AM CDT Office Visit [facility] [address] [address] Jefmai Randy Yobany, DO 909 [place] [address] documented as of this encounter Goals Goal [...] work. Strengths: Working with previous employer for Intermediate Disability. Working with a Picker Operator for Federal Disability. Patient expressed understanding of goal: yes Action steps to achieve this goal: I will continue to lean on my informal supports of my: family I will continue to work on the application(s) for: Social Security Disability and Press Operator Automatic Disability through Standard Insurance I will use [...] as of this encounter Care Teams Manager Leadership Development Relationship Specialty Start Date End Date Winston Villatoro OD [facility] [place] [address] [facility] [address] [place] [address] PCP - Ophthalmology Ophthalmology 02/11/13 Denise Woodson APRN CHAIRLIFT OPERATOR [address] [address] [address] PCP - General Family Practice 05/26/25 Denise Woodson APRN CHAIRLIFT OPERATOR [address] [address] [address] Assigned PCP 07/17/20 Usha Simon APRN CHAIRLIFT OPERATOR 909 [facility] [id number] [place] [address] Nurse Practitioner Neurological Surgery 01/24/24 Dangelo Salinas MD [address] [place] [address] Neurology 01/27/24 Joya Lira RP [address] [place] [address] Pharmacist Pharmacist 05/25/24 Joya Lira RPH [address] [place] [address] Assigned MTM Pharmacist 06/08/24 Fabi Coates MD 420 [facility] 75 [place], [place] 954625 Genetics, Clinical 06/18/24 Arthur Salas, [facility] [address] [place] [address] Assigned Behavioral Health Provider 08/08/24 Randy Maradiaga DO 909 [place], [place] 530995 Assigned Neuroscience Provider 08/08/24 Tete Wang MD [address] [facility] [place] [address] Genetics, Clinical 10/30/24 Dahlia Joyce MD 909 [place] [address] Radiology Neuroradiology 11/17/24 Lisa Zambrano MD 6405 [facility] [address] [place], [place] 164205 Assigned Heart and Vascular Provider 12/06/24 Tete Wang MD 2450 [place], [place] 859484 Assigned Pediatric Specialist Provider 01/06/25 Any Joiner MD [address] [place] [address] 542805 Assigned Pulmonology Provider 02/05/25 Myles Bindu, OD [address] [place] [address] 492425 Assigned Surgical Provider 03/08/25 Aftab Finn MD [address] [address] Dermatology 03/17/25 Aftab Finn MD [address] [place] [address] Assigned Dermatology Provider 04/07/25 Red De Los Santos LSW Lead Slubber Runner Primary Care - CC 05/26/25 [place], PA-C [address] [place] [address] 490275 Physician Wind Power Project Manager Physical Medicine and Rehabilitation 02/25/25 Alessandra Pereira RN Specialty Slubber Runner Neurological Surgery 06/02/25 documented as of this encounter
--- OUTSIDE RECORDS SUMMARY | 2025-07-07 18:21 | XMS_ITS | Encounter Summary ---
Author Organization [facility] Address [address] [place] [address] Care Team Providers Care Nuclear Medicine Supervisor Name Role Phone Winston Villatoro OD Unavailable [phone] Denise Woodson APRN BOTTLE TESTER Unavailable [phone] Usha Simon APRN BOTTLE TESTER Unavailable + [phone] Dangelo Salinas MD Unavailable Joya Lira RP Unavailable +[phone] Joya Lira [facility] Unavailable Fabi Coates MD Unavailable [phone] Arthur Salas DENTAL OFFICE COORDINATOR Unavailable +[phone] Randy Maradiaga DO Unavailable + Tete Wang MD Unavailable +[phone] Dahlia Joyce MD Unavailable +[phone] Lisa Zambrano MD Unavailable + [phone] Tete Wang MD Unavailable +[phone] Any Joiner MD Unavailable +[phone] Bindu Bueno OD Unavailable +[phone] Aftab Finn MD Unavailable Aftab Finn MD Unavailable Denise Woodson APRN BOTTLE TESTER Primary Care Provider Red De Los Santos MATERNITY FLOOR SUPERVISOR Unavailable [phone] Santa MenonC Unavailable [phone] Alessandra Pereira RN Unavailable Encounter Details Date Type Department Care Team (Late st Contact Info) Description 06/29/2025 MyC Medical Advice [facility] [address] [place] [address] Rubi Johnson, OT [facility] [address] [place] [address] Social History Tobacco Use Types [...] Answer Date Recorded PHQ-2 Score 2 07/01/2025 [facility] [place] of Occupat ional Health - Occupational Stress [...] on file Legal Sex Female 4:05 AM METHODS EXAMINER Gender Identity Not on file Sexual [...] Description 07/09/2025 11:00 AM CDT Virtual Visit [facility] [address] [place] [phone] BuenoBindu, OD [address] [place], [place] [address]205 Rubi Johnson, OT [facility] [address] [address] 07/15/2025 2:30 PM CDT Office Visit [facility] [address] [place] [phone] Denies Woodson, MUSCULOSKELETAL PHYSIOTHERAPIST BOTTLE TESTER [address] [place], [place] [phone] 07/16/2025 11:00 AM CDT Virtual Visit [address] [phone] MylesBindu, OD [address] [place], [place] 6126[address] Rubi Johnson, OT [address] 487727 07/23/2025 11:00 AM METHODS EXAMINER Virtual Visit [address] [phone] MylesBindu, OD [address] [place], [place] 283385 Rubi Johnson, OT [address] [address] 08/03/2025 11:00 AM METHODS EXAMINER Virtual Visit [address] [phone] Bindu Bueno, OD [address] [place] [address] Rubi Johnson, OT [address] [address] 08/03/2025 4:30 PM METHODS EXAMINER Virtual Visit [facility] [address] [phone] Any Joiner MD [address] [place] [address] 373235 08/17/2025 12:45 PM METHODS EXAMINER Virtual Visit [address] [phone] Bindu Bueno, OD [address] [place] [address] Rubi Johnson, OT [address] [address] 10/04/2025 10:15 AM METHODS EXAMINER Virtual Visit [facility] [address] [phone] Santa Menon, PANilesC [address] [place] [place] [address] 195485 01/19/2026 11:30 AM CDT Office Visit [facility] [address] [place] [address] Randy Maradiaga, DO [address] [place] [address] documented as of this encounter Goals Goal [...] work. 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 Patient expressed understanding of goal: yes Action steps to achieve this goal: I will continue to lean on my informal supports of my: family I will continue to work on the application(s) for: Social Security Disability and Kennel Worker Disability through [employer] Insurance I will use [...] as of this encounter Care Teams Nuclear Medicine Supervisor Relationship Specialty Start Date End Date Winston Villatoro OD [facility] [place] [address] [facility] [address] [place] [address] PCP - Ophthalmology Ophthalmology 02/11/13 Denise Woodson APRN BOTTLE TESTER [address] [place] [address] PCP - General Family Practice 05/26/25 Denise Woodson APRN BOTTLE TESTER [address] [place] [address] Assigned PCP 07/17/20 Usha Simon APRN BOTTLE TESTER 909 [facility] [id number] [place] [address] Nurse Practitioner Neurological Surgery 01/24/24 Dangelo Salinas MD [address] [place] [address] Neurology 01/27/24 Joya Lira RPH [address] [place] [address] Pharmacist Pharmacist 05/25/24 Joya Lira RPH [address] [place] [address] Assigned MTM Pharmacist 06/08/24 Fabi Coates MD 420 [facility] 75 [place], [place] 025[address] Genetics, Clinical 06/18/24 Arthur Salas, [facility] [address] [place] [address] Assigned Behavioral Health Provider 08/08/24 Randy Maradiaga DO 909 [place] [address] Assigned Neuroscience Provider 08/08/24 Tete Wang MD [address] [place] [address] Genetics, Clinical 10/30/24 Dahlia Joyce MD [address] [place] [address] Radiology Neuroradiology 11/17/24 Lisa Zambrano MD 6[address] [facility] [address] [place], [place] 8275[address] Assigned Heart and Vascular Provider 12/06/24 Tete Wang MD 2450 [place], [place] 205084 Assigned Pediatric Specialist Provider 01/06/25 Any Joiner MD [address] [place] [address] 276 [place], [place] 584785 Assigned Pulmonology Provider 02/05/25 Myles Bindu, OD [address] [place], [place] 944335 Assigned Surgical Provider 03/08/25 Aftab Finn MD [address] [address] Dermatology 03/17/25 Aftab Finn MD 500 [place] [address] Assigned Dermatology Provider 04/07/25 Red De Los Santos LSW Lead Store Standards Associate Primary Care - CC 05/26/25 Santa Menon, PA-C [address] [place] [address] Physician Sales And Marketing Representative Physical Medicine and Rehabilitation 02/25/25 Alessandra Pereira RN Specialty Store Standards Associate Neurological Surgery 06/02/25 documented as of this encounter
--- OUTSIDE RECORDS SUMMARY | 2025-07-07 18:21 | XMS_ITS | Encounter Summary ---
Author Organization [facility] Address [address] [place] [address] Care Team Providers Care Truck Driver Name Role Phone Timmy Perez MD Unavailable Unavailable Yung Madrigal MD Unavailable Unavailable Frw, None Primary Care Provider Unavailabl e Winston Villatoro OD Unavailable [phone] Apple Sykes MD Primary Care Provider Unavailab Westley Vera MD Unavailable [phone] Alessandra Cabrales APRN FIELD ADMINISTRATIVE ASSISTANT Primary Car e Provider Dada Serum, Clara Serra MD Primary Care Provider Dada Serum, Clara Serra MD Unavailable Dada SerumClara MD Unavailable Denise Woodson APRN FIELD ADMINISTRATIVE ASSISTANT Unavailable [phone] Denise Woodson APRN FIELD ADMINISTRATIVE ASSISTANT Primary Care Provider Usha Simon APRN FIELD ADMINISTRATIVE ASSISTANT Unavailable + [phone] Dangelo Salinas MD Unavailable Usha Simon APRN FIELD ADMINISTRATIVE ASSISTANT Unavailable + [phone] Anastasia Stearns RN Unavailable [phone] Germaine Aleman CHW Unavailable +[phone] Robin Zepeda MD Unavailable +[phone] Lisa Zambrano MD Unavailable [phone] Raul Hoyos MD Unavailable SorayaJoya RP Unavailable [phone] Soraya Joya [facility] Unavailable [phone] Fabi Coates MD Unavailable [phone] Robin Zepeda MD Unavailable + [phone] Danna Cardenas PA-C Unavailable [phone] Felicita Desai RN Unavailable Unavailab gabino Arthur Salas ANSWERING SERVICE OPERATOR Unavailable [phone] Randy Maradiaga DO Unavailable + Tete Wang MD Unavailable [phone] Dahlia Joyce MD Unavailable [phone] Lisa Zambrano MD Unavailable + [phone] Tete Wang MD Unavailable [phone] Any Joiner MD Unavailable [phone] Bindu Bueno OD Unavailable [phone] Aftab Finn MD Unavailable Randy Maradiaga DO Primary Care Prov ider Aftab Finn MD Unavailable Selena Mcfadden CHW Unavailable [phone] Denise Woodson APRN FIELD ADMINISTRATIVE ASSISTANT Primary Care Provider Red De Los SantosW Unavailable [phone] Santa Menon PA-C Unavailable [phone] Alessandra Pereira RN Unavailable Encounter Details Date Type Department Care Team (Late st Contact Info) Description 01/30/2006 [facility] [place] Inpatient Dept [address] [place] [address] Frw, Inpatient Provider Social History Tobacco Use Types Packs/Day Years Used Date Smoking Tobacco: Never Passive Smoke Exposure: Never Smokeless Tobacco: Never Alcohol Use Standard Drinks/Week Comments Not Currently 0 (1 standard drink = 0.6 oz pur e alcohol) minimal Comments No Sex and Gender Information Value Date Recorded Sex Assigned at Not on file Legal Sex Female 4:05 AM PROTOTYPE MACHINE OPERATOR Gender Identity Not on file [...] pain. PROCEDURE: TOTAL VAGINAL HYSTERECTOMY. SURGEON: Chris COMMUNICATIONS ANALYST: Radha ANESTHESIA: Spinal ESTIMATED BLOOD LOSS: 100 [...] Description 07/09/2025 11:00 AM CDT Virtual Visit [address] [phone] Bindu Bueno, OD [address] [place], [place] [phone] Rubi Johnson, OT [address] 894607 07/15/2025 2:30 PM CDT Office Visit [facility] [address] [place] [address] Denise Woodson APRN FIELD ADMINISTRATIVE ASSISTANT [address] [place], [place] 5732368 07/16/2025 11:00 AM CDT Virtual Visit [address] [phone] Bindu Bueno, OD [address] [place], [place] 896965 Rubi Johnson, OT [address] [place] [address] 07/23/2025 11:00 AM PROTOTYPE MACHINE OPERATOR [facility] 150 [place] [phone] Bueno, Bindu, OD [address] [place], [place] 949765 Rubi Johnson, OT [address] [address] 08/03/2025 11:00 AM PROTOTYPE MACHINE OPERATOR Virtual Visit [address] [phone] Bueno, Bindu, OD 9[address] [place], [place] 811745 Rubi Johnson, OT [address] [address] 08/03/2025 4:30 PM PROTOTYPE MACHINE OPERATOR Virtual Visit [facility] [address] [phone] Any Joiner MD [address] [place] [address] 08/17/2025 12:45 PM PROTOTYPE MACHINE OPERATOR Virtual Visit [address] [phone] Bueno, Bindu, OD [address] [place], [place] 950765 Rubi Johnson, OT [address] [place] [address] 10/04/2025 10:15 AM PROTOTYPE MACHINE OPERATOR Virtual Visit [facility] [address] [phone] Santa Menon, PA-C [address] [place] [address] 642745 01/19/2026 11:30 AM CDT Office Visit [facility] [address] [address] Randy Maradiaga DO [address] [place] [address] 994085 documented as of this encounter Visit Diagnoses Not on filedocumented in this encounter Additional Health Concerns Infection Onset Date Last Indicated Resolved Time Rule Out COVID-19 09/13/2024 09/13/2024 09/13/2024 12:31 PM PROTOTYPE MACHINE OPERATOR Rule Out COVID-19 11/14/2024 11/14/2024 11/14/2024 8:25 PM PROTOTYPE MACHINE OPERATOR documented as of this encounter Care Teams Truck Driver Relationship Specialty Start Date End Date Timmy Perez MD PCP - Obstetrics/Gynecology 03/02/08 08/07/15 Yung Madrigal MD RETIRED PCP - Orthopaedics Orthopedics 08/26/12 01/20/24 Frw, None PCP - General Family Practice 08/26/12 05/03/13 Winston Villatoro, AMELIE [facility] [place] [address] [place] [address] PCP - Ophthalmology Ophthalmology 02/11/13 Apple Sykes MD [facility] [place] [address] [place] [address] PCP - General Family Practice 05/04/13 10/25/16 Westley Bates MD XXX RETIRED XXX 701 [facility] 95 [place] [address] PCP - ENT Otolaryngology 05/14/13 07/28/18 [facility] APRN FIELD ADMINISTRATIVE ASSISTANT [address] [facility] [place] [place] [address] PCP - General Nurse Practitioner 10/26/16 02/06/17 Clara Jara MD [address] [facility] [place] [address] PCP - General Internal Medicine 02/07/17 09/20/20 Clara Jara MD 8675 [place] [address] PCP - Assigned PCP 01/17/17 11/18/18 Denise Woodson APRN FIELD ADMINISTRATIVE ASSISTANT [address] [place] [address] PCP - General Family Practice 09/21/20 04/07/25 Randy Maradiaga DO [address] [place] [address] PCP - General Neurology 04/08/25 05/25/25 Denise Woodson APRN FIELD ADMINISTRATIVE ASSISTANT [address] [place] [address] PCP - General Family Practice 05/26/25 Clara Jara MD [address] [place] [address] Assigned PCP 01/17/17 07/16/20 Denise Woodson APRN FIELD ADMINISTRATIVE ASSISTANT [address] [place] [address] Assigned PCP 07/17/20 Usha Simon APRN FIELD ADMINISTRATIVE ASSISTANT [address] [address] Nurse Practitioner Neurological Surgery 01/24/24 Dangelo Salinas MD [address] [place] [address] Neurology 01/27/24 Usha Simon APRN FIELD ADMINISTRATIVE ASSISTANT [address] [address] Assigned Neuroscience Provider 02/06/24 03/07/24 Anastasia Stearns, RN Lead Alarm Operator 02/06/24 12/17/24 Germaine Aleman, W Community Health Worker Primary Care - CC 02/18/24 12/17/24 Robin Zepeda MD [address] [address] Assigned Neuroscience Provider 03/08/24 05/07/24 Lisa Zambrano MD [address] [place] [address] Assigned Heart and Vascular Provider 05/08/24 07/07/24 Raul Hoyos MD 909 [facility] [place] [address] Assigned Neuroscience Provider 05/08/24 07/07/24 Joya Lira [facility] [address] [place] [address] Pharmacist Pharmacist 05/25/24 Joya Lira [facility] [address] [place] [address] Assigned MTM Pharmacist 06/08/24 Fabi Coates MD [address] [place] [address] 75 [place] [address] Genetics, Clinical 06/18/24 Robin Zepeda MD [address] [place] [id number] [address] Assigned Neuroscience Provider 07/08/24 08/07/24 Danna Cardenas PA-C [address] [place] [address] Assigned Heart and Vascular Provider 07/08/24 12/05/24 Felicita Desai, RN Lead Alarm Operator 07/14/24 07/28/24 Arthur Salas, [facility] [address] [address] Assigned Behavioral Health Provider 08/08/24 Randy Maradiaga DO [address] [place] [address] Assigned Neuroscience Provider 08/08/24 Tete Wang MD [address] [place] [address] 522134 Genetics, Clinical 10/30/24 Dahlia Joyce MD [address] [place] [address] [phone] Radiology Neuroradiology 11/17/24 [place] [address] [place], [place] [id number] [place] [address] 577175 Assigned Heart and Vascular Provider 12/06/24 Tete Wang MD [address] [place] [address] 692694 Assigned Pediatric Specialist Provider 01/06/25 Any Joiner MD [address] [place] [address] [id number] Assigned Pulmonology Provider 02/05/25 Bindu Bueno OD [address] [place] [address] 691265 Assigned Surgical Provider 03/08/25 Aftab Finn MD [address] [place] [address] 075090 Dermatology 03/17/25 Aftab Finn MD 500 [place] [address] Assigned Dermatology Provider 04/07/25 Selena Mcfadden [facility] Community Health Worker 05/25/25 05/26/25 Red De Los Santos LSW Lead Alarm Operator Primary Care - CC 05/26/25 Santa Menon PA-C 9 [place] [address] Physician Deicer Kit Assembler Physical Medicine and Rehabilitation 02/25/25 Alessandra Pereira, RN Specialty Alarm Operator Neurological Surgery 06/02/25 documented as of this encounter
--- OUTSIDE RECORDS SUMMARY | 2025-07-07 18:21 | XMS_ITS | Encounter Summary ---
Author Organization [facility] Address [address] [place] [address] Care Team Providers Care Missing Persons Investigator Name Role Phone Timmy Perez MD Unavailable Unavailable uYng Madrigal MD Unavailable Unavailable Frw, None Primary Care Provider Unavailabl e Winston Villatoro OD Unavailable [phone] Apple Sykes MD Primary Care Provider Unavailab Westley Vera MD Unavailable [phone] Alessandra Cabrales APRN PRODUCTION EDITOR Primary Car e Provider Dada Serum, Clara Serra MD Primary Care Provider Dada Serum, Clara Serra MD Unavailable Dada SerumClara MD Unavailable Denise Woodson APRN PRODUCTION EDITOR Unavailable [phone] Denise Woodson APRN PRODUCTION EDITOR Primary Care Provider sUha Simon APRN PRODUCTION EDITOR Unavailable + [phone] Dangelo Salinas MD Unavailable Usha Simon APRN PRODUCTION EDITOR Unavailable + [phone] Anastasia Stearns RN Unavailable [phone] Germaine Aleman CHW Unavailable [phone] Robin Zepeda MD Unavailable [phone] Lisa Zambrano MD Unavailable [phone] Raul Hoyos MD Unavailable SorayaJoya RP Unavailable [phone] Soraya Joya [facility] Unavailable +[phone] Fabi Coates MD Unavailable [phone] Robin Zepeda MD Unavailable + [phone] Danna Cardenas PA-C Unavailable +[phone] Felicita Desai RN Unavailable Unavailab gabino Arthur Salas RADIO TIME SALESPERSON Unavailable +[phone] Randy Maradiaga DO Unavailable + Tete Wang MD Unavailable +[phone] Dahlia Joyce MD Unavailable [phone] Lisa Zambrano MD Unavailable + [phone] Tete Wang MD Unavailable +[phone] Any Joiner MD Unavailable [phone] Bindu Bueno OD Unavailable [phone] Aftab Finn MD Unavailable Randy Maradiaga DO Primary Care Prov ider Aftab Finn MD Unavailable Selena Mcfadden CHW Unavailable [phone] Denise Woodson APRN PRODUCTION EDITOR Primary Care Provider Red De Los SantosW Unavailable [phone] Santa [place] PA-C Unavailable [phone] Alessandra Pereira RN Unavailable Encounter Details Date Type Department Care Team (Late st Contact Info) Description 01/31/2006 [facility] [place] [employer] [address] [place] [phone] Timmy Perez MD Social History Tobacco Use Types Packs/Day Years Used Date Smoking Tobacco: Never Passive Smoke Exposure: Never Smokeless Tobacco: Never Alcohol Use Standard Drinks/Week Comments Not Currently 0 (1 standard drink = 0.6 oz pur e alcohol) minimal Comments No Sex and Gender Information Value Date Recorded Sex Assigned at Not on file Legal Sex Female 4:05 AM SCRAP WORKER Gender Identity Not on file Sexual Orientation Not on file 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 Not on file Not on file Not on file Not on file Not on file Not on file documented as of this encounter Plan of Treatment Upcoming Encounters Date Type Department Care Team (Late st Contact Info) Description 07/09/2025 11:00 AM CDT Virtual Visit [address] [phone] Bindu Bueno, OD [address] [place], [place] [phone] Rubi Johnson, OT [facility] [address] [phone] 07/15/2025 2:30 PM CDT Office Visit [facility] [address] [place] [address] Denise Woodson APRN [facility] [address] [place], [place] [id number] 07/16/2025 11:00 AM CDT Virtual Visit [address] [phone] Bindu Bueno, OD [address] [place], [place] [phone] Rubi Johnson, OT [address] [address] 07/23/2025 11:00 AM SCRAP WORKER Virtual Visit [address] [phone] Bindu Bueno, OD [address] [place], [place] [address] Rubi Johnson, OT [address] [address] 08/03/2025 11:00 AM SCRAP WORKER Virtual Visit [address] [phone] BuenoBindu flores, OD [address] [place], [place] [address] Rubi Johnson, OT [address] [address] 08/03/2025 4:30 PM SCRAP WORKER Virtual Visit [facility] [address] [phone] Ayn Joiner MD [address] [place] [address]64785 08/17/2025 12:45 PM SCRAP WORKER Virtual Visit [address] [phone] Bindu Bueno, OD [address] [place], [place] [phone] Rubi Johnson, OT [address] [address] 10/04/2025 10:15 AM SCRAP WORKER Virtual Visit [facility] [address] [phone] [place], [facility] [address] [place] [address] 01/19/2026 11:30 AM CDT Office Visit [facility] [address] [phone] Randy Maradiaga DO [address] [place] [address] 495885 documented as of this encounter Visit Diagnoses Not on filedocumented in this encounter Additional Health Concerns Infection Onset Date Last Indicated Resolved Time Rule Out COVID-19 09/13/2024 09/13/2024 09/13/2024 12:31 PM SCRAP WORKER Rule Out COVID-19 11/14/2024 11/14/2024 11/14/2024 8:25 PM SCRAP WORKER documented as of this encounter Care Teams Missing Persons Investigator Relationship Specialty Start Date End Date Timmy Perez MD PCP - Obstetrics/Gynecology 03/02/08 08/07/15 Yung Madrigal MD RETIRED PCP - Orthopaedics Orthopedics 08/26/12 01/20/24 Frw, None PCP - General Family Practice 08/26/12 05/03/13 Winston Villatoro OD [facility] [place] [address] [place], [place] [phone] PCP - Ophthalmology Ophthalmology 02/11/13 Apple Sykes MD [facility] [place] [address] [place] [address] PCP - General Family Practice 05/04/13 10/25/16 Westley Bates MD XXX RETIRED XXX [address] [facility] [address] [place] [address] PCP - ENT Otolaryngology 05/14/13 07/28/18 [facility] PRODUCTION EDITOR [address] [place] [address] [place] [address] PCP - General Nurse Practitioner 10/26/16 02/06/17 Clara Jara MD [address] [place] [address] [place] [address] PCP - General Internal Medicine 02/07/17 09/20/20 Clara Jara MD [address] [place] [address] PCP - Assigned PCP 01/17/17 11/18/18 Denise Woodson APRN PRODUCTION EDITOR [address] [place] [address] PCP - General Family Practice 09/21/20 04/07/25 Randy Maradiaga DO [address] [place] [address] PCP - General Neurology 04/08/25 05/25/25 Denise Woodson APRN PRODUCTION EDITOR [address] [place] [address] PCP - General Family Practice 05/26/25 Clara Jara MD [address] [place] [address] Assigned PCP 01/17/17 07/16/20 Denise Woodson APRN PRODUCTION EDITOR [address] [address] [place] [address] Assigned PCP 07/17/20 Usha Simon APRN PRODUCTION EDITOR [address] [address] Nurse Practitioner Neurological Surgery 01/24/24 Dangelo Salinas MD [address] [place] [address] Neurology 01/27/24 Usha Simon APRN PRODUCTION EDITOR [address] [place] [address] Assigned Neuroscience Provider 02/06/24 03/07/24 Anastasia Stearns, RN Lead [employer] Airspace Control Officer 02/06/24 12/17/24 Germaine Aleman, W Community Health Worker Primary Care - CC 02/18/24 12/17/24 Robin Zepeda MD [address] [address] Assigned Neuroscience Provider 03/08/24 05/07/24 Lisa Zambrano MD [address] [place] [address] Assigned Heart and Vascular Provider 05/08/24 07/07/24 Raul Hoyos MD [id number] [place] [address] Assigned Neuroscience Provider 05/08/24 07/07/24 Joya Lira [facility] [address] [place] [address] Pharmacist Pharmacist 05/25/24 Joya Lira [facility] [address] [place] [address] Assigned MTM Pharmacist 06/08/24 Fabi Coates MD [address] [place] [address] [address] [place] [address] Genetics, Clinical 06/18/24 Robin Zepeda MD [id number] [place] [address] Assigned Neuroscience Provider 07/08/24 08/07/24 Danna Cardenas PA-C [address] [place] [address] Assigned Heart and Vascular Provider 07/08/24 12/05/24 Felicita Desai, RN Lead [employer]oc Airspace Control Officer 07/14/24 07/28/24 Arthur Salas [facility] [address] [place] [address] Assigned Behavioral Health Provider 08/08/24 Randy Maradiaga DO [address] [place] [address] Assigned Neuroscience Provider 08/08/24 Tete Wang MD [address] [place] [address] [phone] Genetics, Clinical 10/30/24 Dahlia Joyce MD [address] [place] [address] [phone] Radiology Neuroradiology 11/17/24 [place] [address] [place], [place] [phone] [place] [address] 785265 Assigned Heart and Vascular Provider 12/06/24 Tete Wang MD [address] [place] [address] 338694 Assigned Pediatric Specialist Provider 01/06/25 Any Joiner MD [address] [address] Assigned Pulmonology Provider 02/05/25 Bindu Bueno OD [address] [place] [address] 093135 Assigned Surgical Provider 03/08/25 Aftab Finn MD [address] [phone] Dermatology 03/17/25 Aftab Finn MD [address] [place] [address] Assigned Dermatology Provider 04/07/25 [place]ena Mcfadden, [facility] Community Health Worker 05/25/25 05/26/25 Red De Los Santos, MANAGER FLOOR Lead [employer]oc Airspace Control Officer Primary Care - CC 05/26/25 [place] [facility] [address] [place] [address] Physician Student Life Dean Physical Medicine and Rehabilitation 02/25/25 Alessandra Pereira, RN Specialty [employer] Airspace Control Officer Neurological Surgery 06/02/25 documented as of this encounter
--- OUTSIDE RECORDS SUMMARY | 2025-07-07 18:22 | XMS_ITS | Clinical Summary ---
Author Organization [facility] Address [address] [place] [address] Care Team Providers Care Park Keeper Name Role Phone Winston Villatoro OD Unavailable [phone] Denise Woodson APRN TECHNOLOGY ADVISOR Unavailable [phone] Usha Simon APRN TECHNOLOGY ADVISOR Unavailable + [phone] Dangelo Salinas MD Unavailable Joya Lira RP Unavailable [phone] Joya Lira RP Unavailable Fabi Coates MD Unavailable [phone] Arthur Salas TRIPOLER Unavailable [phone] Randy Maradiaga DO Unavailable + Tete Wang MD Unavailable [phone] Dahlia Joyce MD Unavailable [phone] Lisa Zambrano MD Unavailable + [phone] Tete Wang MD Unavailable [phone] Any Joiner MD Unavailable [phone] Bindu Bueno OD Unavailable [phone] Aftab Finn MD Unavailable Aftab Finn MD Unavailable Denise Woodson APRN TECHNOLOGY ADVISOR Primary Care Provider Red De Los Santos QUALITY SYSTEMS SPECIALIST Unavailable [phone] Santa Menon PA-C Unavailable [phone] Alessandra Pereira RN Unavailable Allergies Active Allergy Reactions Criticality Noted Date Comments Acetaminophen-Codeine Nausea and Vomiting,Other (See Comments) 01/10/2022 Acetaminophen-Codeine Nausea and Vomiting,Other (See Comments) 01/10/2022 Bupropion GI Disturbance,Other (See Comments),Nausea Low 01/19/2011 Diarrhea and stomach ache Codeine GI Disturbance High 09/23/2022 Other Reaction(s): epigastric pain Doxycycline Rash Low 09/28/2024 Erythromycin GI Disturbance Low 12/27/2005 Erythromycin Base GI Disturbance 02/03/2006 Iodinated Contrast Media Headache,Nausea,Other (See Comments) 01/05/2025 Mold Dizziness,GI Disturbance 08/22/2012 Molds & Smuts Dizziness,Nausea 08/22/2012 Morphine GI Disturbance,Nausea 05/15/2024 Pollen Extract Other (See Comments),Unknown 08/22/2012 Medications cetirizine (ZYRTEC) 10 MG tablet Take 10 mg by mouth at bedtime. Active psyllium (METAMUCIL) 28.3 % packet Take 1 packet by mouth daily Active acetaminophen (TYLENOL) 500 MG tabletIndicatio ns:Fibromyalgia ,Pain of right upper extremity Take 1-2 tablets (500-1,000 mg) by mouth 3 times daily as needed for mild pain or headaches 01/24/20 24 Active magnesium 200 MG TABS Take 2 tablets by mouth at bedtime. Active Lidocaine (LIDOCARE) 4 % PatchIndication s:Pain of right upper extremity,Fibro myalgia Place 1 patch onto the skin daily as needed. To prevent lidocaine toxicity, patient should be patch free for 12 hrs daily. 05/19/20 24 Active traZODone (DESYREL) 100 MG tablet Take 100 mg by mouth at bedtime. 05/29/20 24 Active LORazepam (ATIVAN) 1 MG tabletIndicatio ns:History of seizure Take 1/2-1 tablet daily as needed for onset of dizziness. 10 tablet 08/04/20 24 Active albuterol (PROAIR HFA/PROVENTIL HFA/VENTOLIN HFA) 108 (90 Base) MCG/ACT inhaler Inhale 1-2 puffs into the lungs every 6 hours as needed for shortness of breath, wheezing or cough. 18 g 09/13/20 24 Active levETIRAcetam (KEPPRA) 750 MG tabletIndicatio ns:History of seizure Take 1/2 of 750 mg tab BID 120 tablet 2 01/23/20 25 Active methylPREDNISol one (MEDROL DOSEPAK) 4 MG tablet therapy packIndications :BPD (bronchopulmona ry dysplasia) (H) Follow Package Directions 21 tablet 03/16/20 25 Active methylPREDNISol one (MEDROL DOSEPAK) 4 MG tablet therapy packIndications :Migraine with status migrainosus, not intractable, unspecified migraine type Follow Package Directions 21 tablet 04/01/20 25 Active Additional Information Patient not taking.Reported on 07/01/2025 BREO ELLIPTA 200-25 MCG/ACT inhalerIndicati ons:Moderate persistent asthma without complication Inhale 1 puff into the lungs daily. 180 each 3 05/15/20 25 Active citalopram (CELEXA) 10 MG tabletIndicatio ns:Generalized anxiety disorder TAKE 1/2 TABLET (5 MG) BY MOUTH DAILY. 90 tablet 07/02/20 25 Active citalopram (CELEXA) 10 MG tabletIndicatio ns:Generalized anxiety disorder Take 0.5 tablets (5 mg) by mouth daily. 90 tablet 01/26/20 25 025 Discontinued azithromycin (ZITHROMAX) 250 MG tabletIndicatio ns:BPD (bronchopulmona ry dysplasia) (H) Take 2 tablets (500 mg) by mouth daily for 1 day, THEN 1 tablet (250 mg) daily for 4 days. 6 tablet 06/23/20 25 025 Active Problems Problem Noted Date Diagnosed Date [...] Encounters Date Type Department Care Team Description 07/07/2025 MyC Medical Advice [facility] Physical Medicine and Rehabilitation [address] [phone] Santa Menon PA-C 07/05/2025 Telephone [facility] Medicine [facility] Rehabilitation [address] [phone] Santa Menon PA-C Call Back 07/02/[address] [phone] Denise Woodson APRN TECHNOLOGY ADVISOR Medication Refill 07/02/2025 Documentation Only [facility] Rehabilitation [address] [phone] Santa Menon PA-C 07/01/2025 12:00 PM CDT Virtual Visit [facility] Clinic [address] [phone] Santa Menon PA-C History of CVA (cerebrovascular accident) (Primary Dx); Cerebrovascular accident (CVA), unspecified mechanism (H); Dizziness; Nonintractable headache, unspecified chronicity pattern, unspecified headache type 06/29/2025 12:45 PM CDT Virtual Visit [address] [phone] Bindu Bueno OD Glaser, Amy J, OT Cerebrovascular accident (CVA), unspecified mechanism (H) (Primary Dx); Alteration in instrumental activities of daily living (IADL); Activity of daily living alteration 06/29/2025 MyC Medical Advice [address] [phone] Rubi Johnson, OT 06/23/2025 MyC Medical Advice [facility] [address] [phone] Any Joiner MD BPD (bronchopulmonary dysplasia) (H) (Primary Dx) 06/22/2025 12:45 PM CDT Virtual Visit [address] [phone] Bindu Bueno OD Glaser, Amy J, OT Cerebrovascular accident (CVA), unspecified mechanism (H) (Primary Dx); Alteration in instrumental activities of daily living (IADL); Activity of daily living alteration 06/19/2025 Travel 06/11/2025 Telephone [facility] Dermatology Clinic [address] [phone] Aftab Finn MD Call Back (Biopsy schedule) 06/07/2025 8:00 AM CDT Virtual Visit [address] [place] [address] Kaleb Luevano MD Peterson, Megan A, OTR Cerebrovascular accident (CVA), unspecified mechanism (H) (Primary Dx) 06/02/2025 2:20 PM CDT Virtual Visit [facility] Neurosurgery Clinic [address] [phone] Robin Zepeda MD Dural arteriovenous fistula; Cerebrovascular accident (CVA), unspecified mechanism (H) 06/02/2025 9:00 AM CDT Virtual Visit [facility] Rehabilitation Services [address] [phone] Bindu Bueno OD Glaser, Amy J, OT Cerebrovascular accident (CVA), unspecified mechanism (H) (Primary Dx); Alteration in instrumental activities of daily living (IADL); Activity of daily living alteration 06/02/2025 MyC Medical Advice [facility] Rehabilitation [facility] [address] [phone] Santa Menon PA-C 06/01/2025 10:44 AM CDT - 06/01/2025 11:59 PM CDT Hospital Encounter [facility] [address] [place] [phone] Robin Zepeda MD Dural arteriovenous fistula; Cerebrovascular accident (CVA), unspecified mechanism (H) Discharge Disposition: Home or Self Care 06/01/2025 Travel 05/29/2025 Travel 05/28/2025 MyC Medical Advice [facility] Care Coordination [facility] [address] [place] [phone] Red De Los Santos LSW 05/25/2025 1:30 PM CDT Virtual Visit [facility] [address] [place] [address] Denise Woodson APRN TECHNOLOGY ADVISOR Cerebrovascular accident (CVA), unspecified mechanism (H) (Primary Dx); History of seizure; History of stroke 05/25/2025 11:00 AM CDT Virtual Visit [address] [phone] Bindu Bueno OD Glaser, Amy J, OT Cerebrovascular accident (CVA), unspecified mechanism (H) (Primary Dx); Activity of daily living alteration; Alteration in instrumental activities of daily living (IADL) 05/20/2025 MyC Medical Advice [facility] [address] [phone] Santa Menon, PANilesC History of CVA (cerebrovascular accident) (Primary Dx) 05/20/2025 MyC Medical Advice [address] [phone] Rubi Johnson, OT 05/18/2025 10:15 AM CDT Therapy Visit [address] [phone] Denise Woodson APRN CNP Peterson, Megan A, OTR Cerebrovascular accident (CVA), unspecified mechanism (H) (Primary Dx) 05/18/2025 Travel 05/15/2025 Travel 05/11/[address] [phone] Denise Woodson APRN TECHNOLOGY ADVISOR Medication Refill 05/10/2025 Telephone [facility] Neurology Clinic [address] [phone] Randy Maradiaga DO 05/07/2025 10:15 AM CDT Therapy Visit [address] [phone] Randy Maradiaga DO Hoyt, Kelly, PT Cerebrovascular accident (CVA), unspecified mechanism (H) (Primary Dx) 05/07/2025 Travel 04/30/2025 11:00 AM CDT Therapy Visit [address] [phone] Bindu Bueno OD Glaser, Amy J, OT Cerebrovascular accident (CVA), unspecified mechanism (H) (Primary Dx); Activity of daily living alteration; Alteration in instrumental activities of daily living (IADL) 04/30/2025 10:15 AM CDT Therapy Visit [address] [phone] Randy Maradiaga, Delicia Soto, PT Cerebrovascular accident (CVA), unspecified mechanism (H) (Primary Dx) 04/30/2025 Travel 04/23/2025 2:00 PM CDT Therapy Visit [address] [phone] Randy Maradiaga, Delicia Soto, PT Cerebrovascular accident (CVA), unspecified mechanism (H) (Primary Dx) 04/23/2025 Travel 04/15/[address] [phone] None Symptoms (Rash flare up, Pt states she was told to call to schedule a Biopsy when she is flared up. ) 04/08/2025 12:30 PM CDT Therapy Visit [address] [phone] Queta Che MD Christnovich, Anthony James, Delicia Soto, PT Cerebrovascular accident (CVA), unspecified mechanism (H) (Primary Dx) 04/08/2025 Travel 04/06/2025 11:00 AM CDT Virtual Visit [address] [phone] Bindu Bueno OD Glaser, Amy J, OT Cerebrovascular accident (CVA), unspecified mechanism (H) (Primary Dx); Activity of daily living alteration; Alteration in instrumental activities of daily living (IADL) from Last 3 Months Immunizations Immunization Administration Dates Next Due COVID-19 Vaccine ([employer]) 11/20/2020 Flu, Unspecified 07/11/2017,07/02/2014 HepB 03/03/2012,11/07/2011,10/04/2011 Hepatitis [...] re latives? 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 Not on file Not on file Not on file Not on file Not on file Not on file Not on file Last Filed Vital Signs Vital Sign Reading Time Taken Comments Blood Pressure 138/84 04/01/2025 10:15 AM CDT Pulse 63 04/01/2025 10:15 AM CDT Temperature 36.3 C (97.3 F) 03/11/2025 10:20 AM CDT Respiratory Rate 16 04/01/2025 10:15 AM CDT Oxygen Saturation 97% 04/01/2025 10:15 AM CDT Inhaled Oxygen Concentration - - Weight 97.5 kg (215 lb) 06/02/2025 2:05 PM CDT Height 174 cm (5' 8.5) 06/02/2025 2:05 PM CDT Body Mass Index 32.22 06/02/2025 2:05 PM CDT Plan of Treatment Upcoming Encounters Date Type Department Care Team (Late st Contact Info) Description 07/09/2025 11:00 AM CDT Virtual Visit [facility] [address] [place] [phone] Bindu Bueno, OD [address] [place] [address] Rubi Johnson, OT [address] [phone] 07/15/2025 2:30 PM CDT Office Visit [facility] [address] [place] [phone] Denise Woodson APRN [facility] [address] [place], [place] [phone] 07/16/2025 11:00 AM CDT Virtual Visit [address] [phone] Bindu Bueno, OD [address] [place], [place] [address] Rubi Johnson, OT [address] [address] 07/23/2025 11:00 AM LOADING MACHINE OPERATOR HELPER Virtual Visit [address] [phone] Bindu Bueno, OD [address] [place], [place] [phone] Rubi Johnson, OT [address] [address] 08/03/2025 11:00 AM LOADING MACHINE OPERATOR HELPER Virtual Visit [address] [place] [phone] Bindu Bueno, OD [address] [place], [place] [address] Rubi Johnson, OT [address] [address] 08/03/2025 4:30 PM LOADING MACHINE OPERATOR HELPER Virtual Visit [facility] [address] [phone] Any Joiner MD [address] [place] [phone] 08/17/2025 12:45 PM LOADING MACHINE OPERATOR HELPER Virtual Visit [facility] Rehabilitation Services [address] [phone] Bindu Bueno, OD [address] [place], [place] [address] Rubi Johnson, OT [address] [address] 10/04/2025 10:15 AM LOADING MACHINE OPERATOR HELPER Virtual Visit [facility] Medicine [facility] Rehabilitation Clinic [address] [phone] Santa Menon PANilesC [address] [place] [phone] 01/19/2026 11:30 AM CDT Office Visit [facility] Neurology Clinic [address] [phone] Randy Maradiaga, [address] [phone] Health Maintenance Due Date Last Done Comments COPD ACTION PLAN [address] CT COLONOGRAPHY 1976 FIT 1976 FLEX SIG 1976 COLONOSCOPY 1986 PNEUMOCOCCAL VACCINE: PEDIATRICS (0 to 5 YEARS) AND AT-RISK PATIENTS (6 to 49 YEARS) (2 of 2 - PCV) 03/16/2005 03/16/2004 COVID-19 VACCINE (3 - season) 2025 07/07/2021, 11/20/2020 INFLUENZA VACCINE (#1) 2025 , 06/23/2021, 07/27/2020, Additional history exists DEPRESSION 12 MO INDEX REPEAT PHQ-9 07/15/2025 07/01/2025, 05/25/2025, 03/16/2025, Additional history exists MAMMO SCREENING 07/30/2025 07/30/2023, 07/17, 04/25/2022, Additional history exists COLORECTAL CANCER SCREENING 10/28/2025 sDNA (Cologuard) 10/28/2025 10/28/2022 PHQ-9 12/30/2025 07/01/2025, 09/0 05/2025, 03/16/2025, Additional history exists YEARLY PREVENTIVE VISIT 01/25/2026 01/26/20, 01/10/2023, 07/27/2021, Additional history exists ANNUAL REVIEW OF HM ORDERS 03/16/202603/16, 09/04/2024, 02/06/2024, Additional history exists ZOSTER VACCINE (1 of 2) 2026 DIABETES SCREENING 03/22/2028 03/22/2025, 0 03/11/2025, 12/17/2024, Additional history exists LIPID 07/13/2029 07/13/2024, 08/3 , 01/15/2024, Additional history exists ADVANCE CARE PLANNING 01/25/2030 01/25/2025 DTAP/TDAP/TD VACCINE (7 - Td or Tdap) 01/04/2031 01/04/2021, 01/26/2011, 04/05/2003, Additional history exists HEPATITIS B VACCINE Completed 03/03/2012, 03/03/2012, 11/07/2011, Additional history exists DEPRESSION ACTION PLAN Completed 01/04/2021, 2020 HEPATITIS C SCREENING Completed 07/22/2024, 024 HIV SCREENING Completed 07/22/2024, 07/22/2024 SPIROMETRY Completed 01/19/2025, 02/2025, 01/19/2025, Additional history exists HPV VACCINE (No Doses Required) Completed MENINGITIS VACCINE Aged Out No longer eligible [...] work. Strengths: Working with previous employer for Half-Way Disability. Working with a [employer] for Federal Disability. Patient expressed understanding of goal: yes Action steps to achieve this goal: I will continue to lean on my informal supports of my: family I will continue to work on the application(s) for: Social Security Disability and Half-Way Disability through [employer] I will use the clinic as a resource and I understand I can contact my clinic with 24/7 after hours services available. I will continue to outreach to care coordination as needed for additional resources or supports. Procedures Procedure Name Priority Date/Time Associated Diagnosis Comments MRA BRAIN ([place]) W/O CONTRAST Routine 06/01/2025 11:23 AM CDT Dural arteriovenous fistula Cerebrovascular accident (CVA), unspecified mechanism (H) COMPREHENSIVE METABOLIC PANEL Routine 03/22/2025 9:14 AM CDT Rash PFT GENERAL LAB TESTING Routine 01/19/2025 2:50 PM CDT Bronchopulmonary dysplasia (H) HIV ANTIGEN ANTIBODY COMBO Routine 07/22/2024 11:17 AM LOADING MACHINE OPERATOR HELPER Screening for HIV (human immunodeficiency virus) HEPATITIS C SCREEN REFLEX TO HCV RNA QUANT AND GENOTYPE Routine 07/22/2024 11:17 AM LOADING MACHINE OPERATOR HELPER Need for hepatitis C screening test LIPID REFLEX TO DIRECT LDL PANEL STAT 07/13/2024 12:40 PM CDT MA SCREENING BILATERAL W/ MAT Routine 04/25/2022 5:03 PM CDT Visit for screening mammogram from Last 3 Months or Most Recently Relevant to Health Maintenance Results * MRA Brain ([place]) w/o Contrast (06/01/2025 11:23 AM [...] 06/02/2025 2:01 PM CDT EXAM: MRA BRAIN ([place]) W/O CONTRAST LOCATION: [facility] DATE: 06/01/2025 INDICATION: Dural arteriovenous fistula, Cerebrovascular accident (CVA), unspecified mechanism (H) COMPARISON: Head CT dated 03/09/2025. Brain MRI 03/09/2025. Brain MRA 11/06/2024 and 01/20/2024. TECHNIQUE: 3D [id number] head MRA without intravenous contrast. FINDINGS: ANTERIOR CIRCULATION: No high-grade stenosis or occlusion. Standard [place] anatomy. POSTERIOR CIRCULATION: No stenosis/occlusion, aneurysm, or high flow vascular malformation. Dominant left and smaller right vertebral artery contribute to a normal basilar artery. No intracranial aneurysms. Procedure Note Donald Marquez MD - 06/02/2025 EXAM: MRA BRAIN ([place]) W/O CONTRAST LOCATION: [facility] DATE: 06/01/2025 INDICATION: Dural arteriovenous fistula, Cerebrovascular accident (CVA),unspecified mechanism (H) COMPARISON: Head CT dated 03/09/2025. Brain MRI 03/09/2025. Brain MRA11/06/2024 and 01/20/2024. TECHNIQUE: 3D [id number] head MRA without intravenous contrast. FINDINGS: ANTERIOR [...] is not well-seen on this exam. us Robni Zepeda MD IMG MRI ORDERABLES Final Result * Comprehensive metabolic panel (03/22/2025 9:14 AM CDT) Sodium 140 135 - 145 mmol/L 03/22/2025 2:42 PM CDT [facility] Potassium 4.2 3.4 - 5.3 mmol/L 03/22/2025 2:42 PM CDT [facility] Carbon Dioxide (CO2) 27 22 - 29 mmol/L 03/22/2025 2:42 PM CDT [facility] Anion Gap 9 7 - 15 mmol/L 03/22/2025 2:42 PM CDT [facility] Urea Nitrogen 12.7 6.0 - 20.0 mg/dL 03/22/2025 2:42 PM CDT [facility] Creatinine 0.79 0.51 - 0.95 mg/dL 03/22/2025 2:42 PM CDT [facility] GFR Estimate >90 >60 mL/min/1.7 3m2 03/22/2025 2:42 PM CDT [facility] Comment:eGFR calculated usin 2020 CKD-EPI equation. Calcium 9.6 8.8 - 10.4 mg/dL 03/22/2025 2:42 PM CDT [facility] Chloride 104 98 - 107 mmol/L 03/22/2025 2:42 PM CDT [facility] Glucose 95 70 - 99 mg/dL 03/22/2025 2:42 PM CDT [facility] Alkaline Phosphatase 87 40 - 150 U/L 03/22/2025 2:42 PM CDT [facility] AST 20 0 - 45 U/L 03/22/2025 2:42 PM CDT [facility] ALT 15 0 - 50 U/L 03/22/2025 2:42 PM CDT [facility] Protein Total 7.2 6.4 - 8.3 g/dL 03/22/2025 2:42 PM CDT [facility] Albumin 4.2 3.5 - 5.2 g/dL 03/22/2025 2:42 PM CDT [facility] Bilirubin Total 0.6 <=1.2 mg/dL 03/22/2025 2:42 PM CDT [facility] Blood BLOOD SPECIMEN / Unknown Venipuncture / Unknown 03/22/2025 9:14 AM CDT 03/22/2025 9:15 AM CDT us Aftab Finn MD LAB - BLOOD ORDERABLES Final Res ult [facility] [address] [facility], Room [address] [place] [phone] * Pulmonary function test (01/19/2025 2:50 PM CDT) FVC-Pred 3.75 L BREEZE PFT FVC-Pre 2.69 L BREEZE PFT FVC-%Pred-Pre 71 % BREEZE PFT FEV1-Pre 1.98 L BREEZE PFT FEV1-%Pred-Pre 65 % BREEZE PFT [id number] 81 % BREEZE PFT [id number] 74 % BREEZE PFT FEFMax-Pred 7.50 L/sec BREEZE PFT FEFMax-Pre 5.80 L/sec BREEZE PFT FEFMax-%Pred-Pr e 77 % BREEZE PFT [id number] 2.93 L/sec BREEZE PFT [id number] 1.42 L/sec BREEZE PFT [id number]-%Pred-P re 48 % BREEZE PFT [id number] 1.45 L/sec BREEZE PFT [id number]-%Pred-P ost 49 % BREEZE PFT ExpTime-Pre 6.75 sec BREEZE PFT FIFMax-Pre 5.73 L/sec BREEZE PFT VC-Pred 3.88 L BREEZE PFT VC-Pre 2.78 L BREEZE PFT VC-%Pred-Pre 71 % BREEZE PFT IC-Pred 2.73 L BREEZE PFT IC-Pre 2.37 L BREEZE PFT IC-%Pred-Pre 86 % BREEZE PFT ERV-Pred 1.37 L BREEZE PFT ERV-Pre 0.41 L BREEZE PFT ERV-%Pred-Pre 30 % BREEZE PFT [id number] 83 % BREEZE PFT [id number] 74 % BREEZE PFT FRCPleth-Pred 3.23 L [...] BREEZE PFT VA-%Pred-Pre 72 % BREEZE PFT [id number] 78 % BREEZE PFT [id number] 71 % BREEZE PFT 01/19/2025 2:5 0 PM CDT Narrative BREEZE PFT - 01/20/2025 [...] ORDERABLES Final Resu lt HEATHER PFT * HIV Antigen Antibody Combo (07/22/2024 11:17 AM LOADING MACHINE OPERATOR HELPER) HIV Antigen Antibody Combo Nonreactive Nonreactive 07/23/2024 2:55 AM LOADING MACHINE OPERATOR HELPER [facility] Comment:Negative HIV-1 p24 a ntigen [...] Unknown Venipuncture / Unknown 07/22/2024 11:17 AM LOADING MACHINE OPERATOR HELPER 07/22/2024 11:17 AM LOADING MACHINE OPERATOR HELPER us Denise Woodson APRN TECHNOLOGY ADVISOR LAB - BLOOD ORDERABLES Final Result [facility] [address] [facility], [address] [place] [phone], [facility] * Hepatitis C Screen Reflex to HCV RNA Quant and Genotype (07/22/2024 11:17 AM LOADING MACHINE OPERATOR HELPER) Hepatitis C Antibody Nonreactive Nonreactive 07/23/2024 10:25 AM LOADING MACHINE OPERATOR HELPER [facility] Comment:A nonreactive screen ing test [...] Unknown Venipuncture / Unknown 07/22/2024 11:17 AM LOADING MACHINE OPERATOR HELPER 07/22/2024 11:17 AM LOADING MACHINE OPERATOR HELPER us Denise Woodson APRN TECHNOLOGY ADVISOR LAB - BLOOD ORDERABLES Final Result [facility] [address] [facility], [address] [phone] * (ABNORMAL) Lipid panel reflex [...] - BLOOD ORDERABLES F inal Result LABORATORY [facility] [address] [facility] [address], [address] [place] [address], [facility] LABORATORY [facility] Acute Care Lab [address], [address] [place] [address], [facility] [phone] * MA Screen Bilateral w/Mat (04/25/2022 5:03 [...] to patient. JEVON HOWELL MD us Denise Woodsno APRN TECHNOLOGY ADVISOR IMG MAMMOGRAPHY ORDERAB LES Final Result from Last 3 Months or Most Recently Relevant to Health Maintenance Additional Health Concerns Active Problems Noted Date Diagnosed Date Patient expresses financial resource strain 05/17 Insurance [employer] OUT OF STATE [facility] OUT OF STATE * Guarantor: Candy Adame Account Type Relation to Patient Date of Phone Billing Address 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 [address] , [address] [place] [address] * Guarantor: Alcon Zamora Account Type Relation to Patient Date of Phone Billing Address Medication Therapy Self [address] [place] [id number] Advance Directives For more information, please contact: [phone] * Full Code (Latest Code Status on [...] Comments Code status determined by: Other (please documen t) * Full Code Date Activated Date [...] patie nt/ legal decision maker Care Teams Park Keeper Relationship Specialty Start Date End Date Winston Villatoro OD [facility] [place] [address] [place] [address] PCP - Ophthalmology Ophthalmology 02/11/13 Denise Woodson APRN TECHNOLOGY ADVISOR [address] [place] [address] PCP - General Family Practice 05/26/25 Denise Woodson APRN TECHNOLOGY ADVISOR [address] [place] [address] Assigned PCP 07/17/20 sUha Simon APRN TECHNOLOGY ADVISOR [address] [facility] [id number] [place] [address] Nurse Practitioner Neurological Surgery 01/24/24 Dangelo Salinas MD [address] [place] [address] Neurology 01/27/24 Joya Lira RP [address] [place] [address] Pharmacist Pharmacist 05/25/24 Joya Lira [facility] [address] [place] [address] Assigned MTM Pharmacist 06/08/24 Fabi Coates MD [address] [place] [address] [address] [place] [address] Genetics, Clinical 06/18/24 Arthur Salas [facility] [address] [address] [address] Assigned Behavioral Health Provider 08/08/24 Randy Maradiaga DO [address] [place] [address] Assigned Neuroscience Provider 08/08/24 Tete Wang MD [address] [place] [address] Genetics, Clinical 10/30/24 Dahlia Joyce MD [address] [place] [address] Radiology Neuroradiology 11/17/24 Lisa Zambrano MD 6405 [facility] [address] [place] [address] Assigned Heart and Vascular Provider 12/06/24 Tete Wang MD [address] [place] [address] Assigned Pediatric Specialist Provider 01/06/25 Any Joiner MD [address] [place] [address] 276 [place] [address] Assigned Pulmonology Provider 02/05/25 Bindu Bueno OD [address] [place] [address] Assigned Surgical Provider 03/08/25 Aftab Finn MD [address] [address] Dermatology 03/17/25 Aftab Finn MD [address] [place] [address] Assigned Dermatology Provider 04/07/25 Red De Los Santos LSW Lead Editor Book Primary Care - CC 05/26/25 Santa Menon, PA-C [address] [place] [address] Physician Aircraft Power Plant Assembler Physical Medicine and Rehabilitation 02/25/25 Alessandra Pereira, RN Specialty Editor Book Neurological Surgery 06/02/25
--- OUTSIDE RECORDS SUMMARY | 2025-07-07 18:22 | XMS_ITS | Encounter Summary ---
Author Organization [facility] Address [address] [place] [address] Care Team Providers Care Floorleader Name Role Phone Winston Villatoro OD Unavailable [phone] Denise Woodson APRN DIRECTOR OF BUSINESS DEVELOPMENT Unavailable +[phone] Denise Woodson APRN DIRECTOR OF BUSINESS DEVELOPMENT Primary Care Provider Usha Simon APRN DIRECTOR OF BUSINESS DEVELOPMENT Unavailable + [phone] Dangelo Salinas MD Unavailable Joya Lira RP Unavailable +[phone] Joya Lira [facility] Unavailable +[phone] Fabi Coates MD Unavailable [phone] Sinyigaya, Specmadi COMMODITIES MANAGER Unavailable +[phone] Randy Maradiaga DO Unavailable + Tete Wang MD Unavailable +[phone] Dahlia Joyce MD Unavailable +[phone] Lisa Zambrano MD Unavailable + [phone] Tete Wang MD Unavailable +[phone] Any Joiner MD Unavailable +[phone] Bindu Bueno OD Unavailable +[phone] Aftab Finn MD Unavailable Randy Maradiaga DO Primary Care Prov ider Aftab Finn MD Unavailable Selena Mcfadden CHW Unavailable [phone] Chintan Deniseemily RUST DIRECTOR OF BUSINESS DEVELOPMENT Primary Care Provider Red De Los Santos ACCOUNTING ASSOCIATE Unavailable [phone] Santa MenonC Unavailable +[phone] Alessandra Pereira RN Unavailable Encounter Details Date Type Department Care Team (Late st Contact Info) Description 01/20/[address] [facility] [address] [place] [address] Santa Menon PA-C [address] [place] [address] Social History Tobacco Use Types Packs/Day [...] re latives? 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 She recommend tapering the trazodone while starting the Amitriptyline to prevent over sedation. Try decreasing to half a tablet of trazodone while starting the Amitriptyline to see if this helps your symptoms. Santa Menon PA-C Autocad Designer called to [facility] to get details regarding [...] 01/06/25 encounter). Pt stated she just wanted Vicenta Menon PA-C to know she wasn't taking amitriptyline. Orders [...] 07/09/2025 11:00 AM CDT Virtual Visit [address] [phone] Bindu Bueno, OD 909 [place], [place] 706625 Rubi Johnson, OT [address] [address] 07/15/2025 2:30 PM CDT Office Visit [facility] [address] [place] [address] Denise Woodson APRN [facility] [address] [place] [address] 07/16/2025 11:00 AM CDT Virtual Visit [address] [phone] Bindu Bueno, OD 909 [place] [address] Rubi Johnson, OT [address] [address] 07/23/2025 11:00 AM COMMUNICATIONS TECH Virtual Visit [address] [phone] MylesBindu, OD 909 [place], [place] 493985 Rubi Johnson, OT [address] [address] 08/03/2025 11:00 AM COMMUNICATIONS TECH Virtual Visit [address] [phone] Binud Bueno, OD 909 [place], [place] 6826[address] Rubi Johnson, OT [address] [address] 08/03/2025 4:30 PM COMMUNICATIONS TECH Virtual Visit [facility] [address] [phone] Any Joiner MD [address] [place] [address] 406035 08/17/2025 12:45 PM COMMUNICATIONS TECH Virtual Visit [address] [phone] Bindu Bueno, OD 909 [place] [address] Rubi Johnson, OT [address] [address] 10/04/2025 10:15 AM COMMUNICATIONS TECH Virtual Visit [facility] [address] [phone] Santa Menon, PANilesC [address] [place] [address] 01/19/2026 11:30 AM CDT Office Visit [facility] Neurology Clinic [address] [phone] Randy Maradiaga DO [address] [place] [address] 489145 documented as of this encounter Visit Diagnoses Not on filedocumented in this encounter Additional Health Concerns Assessment Noted Time PHQ-9 Depression Total Score: 7 01/08/20 25 8:00 AM CDT documented as of this encounter Care Teams Floorleader Relationship Specialty Start Date End Date Winston Villatoro, OD [facility] [address] [place] [address] [address] [place] [address] PCP - Ophthalmology Ophthalmology 02/11/13 Denise Woodson APRN DIRECTOR OF BUSINESS DEVELOPMENT [address] [address] [place] [address] PCP - General Family Practice 09/21/20 04/07/25 Randy Maradiaga DO [address] [place] [address] 836035 PCP - General Neurology 04/08/25 05/25/25 Denise Woodson APRN DIRECTOR OF BUSINESS DEVELOPMENT [address] [place] [address] PCP - General Family Practice 05/26/25 Denise Woodson APRN DIRECTOR OF BUSINESS DEVELOPMENT [address] [place] [address] Assigned PCP 07/17/20 Usha Simon APRN DIRECTOR OF BUSINESS DEVELOPMENT 909 [facility], [place] [address] Nurse Practitioner Neurological Surgery 01/24/24 Dangelo Salinas MD [address] [place], [place] [id number] Neurology 01/27/24 Joya Lira [facility] [address] [place], [place] [phone] Pharmacist Pharmacist 05/25/24 Joya Lira [facility] [address] [place] [address] Assigned MTM Pharmacist 06/08/24 Fabi Coates MD 420 [facility] 75 [place], [place] 861775 Genetics, Clinical 06/18/24 Arthur Salas, [facility] [address] [place] [address] Assigned Behavioral Health Provider 08/08/24 Randy Maradiaga DO 909 [place], [place] 586375 Assigned Neuroscience Provider 08/08/24 Tete Wang MD [address] [place] [address] Genetics, Clinical 10/30/24 Dahlia Joyce MD [address] [place] [address] 386675 Radiology Neuroradiology 11/17/24 Lisa Zambrano MD [address] [place], [place] [address] [place], [place] 818495 Assigned Heart and Vascular Provider 12/06/24 Tete Wang MD [address] [place] [address] 718774 Assigned Pediatric Specialist Provider 01/06/25 Any Joiner MD [address] [place] [address] 276 [place], [place] 689945 Assigned Pulmonology Provider 02/05/25 Bindu Bueno OD [address] [place] [address] Assigned Surgical Provider 03/08/25 Aftab Finn MD [address] [address] Dermatology 03/17/25 Aftab Finn MD [address] [place] [address] Assigned Dermatology Provider 04/07/25 Selena Mcfadden, W Community Health Worker 05/25/2505/26 Red De Los Santos LSW Lead Quill Picking Machine Operator Primary Care - CC 05/26/25 Santa Menon PANilesC 909 [place] [address] Physician Svp Programmatic Tv Physical Medicine and Rehabilitation 02/25/25 Alessandra Pereira, RN Specialty Quill Picking Machine Operator Neurological Surgery 06/02/25 documented as of this encounter
--- OUTSIDE RECORDS SUMMARY | 2025-07-07 18:22 | XMS_ITS | Encounter Summary ---
Author Organization [facility] Address [address] [place] [address] Care Team Providers Care Electrician Constructor Supervisor Name Role Phone Winston Villatoro OD Unavailable [phone] Denise Woodson APRN BASE FILLER Unavailable [phone] Denise Woodson APRN BASE FILLER Primary Care Provider Usha Simon APRN BASE FILLER Unavailable Dangelo Salinas MD Unavailable Anastasia Stearns RN Unavailable Germaine Aleman CHW Unavailable [phone] Joya Lira RP Unavailable Joya Lira [facility] Unavailable +[phone] Fabi Coates MD Unavailable [phone] Robin Zepeda MD Unavailable Danna Cardenas PA-C Unavailable [phone] Arthur SalasSW Unavailable +[phone] Randy Maradiaga DO Unavailable + Tete Wang MD Unavailable +[phone] Dahlia Joyce MD Unavailable [phone] Lisa Zambrano MD Unavailable Tete Wang MD Unavailable [phone] Any Joiner MD Unavailable [phone] Bindu Bueno OD Unavailable +[phone] Aftab Finn MD Unavailable Randy Maradiaga DO Primary Care Prov ider Aftab Finn MD Unavailable Selena Mcfadden CHW Unavailable [phone] Denise Woodson APRN BASE FILLER Primary Care Provider Red De Los Santos LAB SUPPORT TECHNICIAN Unavailable [phone] Santa Menon PA-C Unavailable [phone] Alessandra Pereira RN Unavailable Encounter Details Date Type Department Care Team (Late st Contact Info) Description 08/01/2024 [facility] Medical Advice [facility] Neurology Clinic [address] [address] Randy Maradiaga, DO [address] [place] [address] [phone] Social History Tobacco Use Types Packs/Day Years [...] How often do you attend sabianism or samaritan serv ices? 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 Not on file Not on file Not on file Not on file Not on file Not on file documented as of this encounter Plan of Treatment Upcoming Encounters Date Type Department Care Team (Late st Contact Info) Description 07/09/2025 11:00 AM CDT Virtual Visit [address] [phone] Bindu Bueno, OD 909 [place], [place] 796595 Rubi Johnson, OT [address] [address] 07/15/2025 2:30 PM CDT Office Visit [facility] [address] [place] [address] Denise Woodson APRN [facility] [address] [place] [address] 07/16/2025 11:00 AM CDT Virtual Visit [address] [phone] Bindu Bueno, OD 909 [place] [address] Rubi Johnson, OT [facility] [address] [place] [address] 07/23/2025 11:00 AM TELECOMMUNICATIONS ANALYST Virtual Visit [address] [phone] BuenoBindu, OD 909 [place] [address] Rubi Johnson, OT [address] [address] 08/03/2025 11:00 AM TELECOMMUNICATIONS ANALYST Virtual Visit [address] [phone] Magali Buenoissa, OD 909 [place], [place] 978645 Rubi Johnson, OT [address] [address] 08/03/2025 4:30 PM TELECOMMUNICATIONS ANALYST Virtual Visit [facility] [place] [address] [place] [phone] Any Joiner MD [address] [place] [address] 503865 08/17/2025 12:45 PM TELECOMMUNICATIONS ANALYST Virtual Visit [address] [phone] MylesBindu, OD 909 [place] [address] Rubi Johnson, OT [address] [address] 10/04/2025 10:15 AM TELECOMMUNICATIONS ANALYST Virtual Visit [facility] Physical [facility] Rehabilitation Clinic [address] [phone] Santa Menon, PANilesC [address] [place] [address] [id number] 01/19/2026 11:30 AM CDT Office Visit [facility] Neurology Clinic [address] [address] Randy Maradiaga, [address] [place] [address] 453385 documented as of this encounter Visit Diagnoses Not on filedocumented in this encounter Additional Health Concerns Infection Onset Date Last Indicated Resolved Time Rule Out COVID-19 09/13/2024 09/13/2024 09/13/2024 12:31 PM TELECOMMUNICATIONS ANALYST Rule Out COVID-19 11/14/2024 11/14/2024 11/14/2024 8:25 PM TELECOMMUNICATIONS ANALYST Assessment Noted Time PHQ-9 Depression Total Score: 14 024 11:46 AM CDT documented as of this encounter Care Teams Electrician Constructor Supervisor Relationship Specialty Start Date End Date Winston Villatoro M, OD [facility] [place] [address] [place] [id number] PCP - Ophthalmology Ophthalmology 02/11/13 Denise Woodson APRN BASE FILLER [address] [address] [id number] PCP - General Family Practice 09/21/20 04/07/25 Randy Maradiaga DO 909 [place], [place] 681525 PCP - General Neurology 04/08/25 05/25/25 Denise Woodson APRN BASE FILLER [address] [place] [address] PCP - General Family Practice 05/26/25 Denise Woodson APRN BASE FILLER [address] [place] [address] Assigned PCP 07/17/20 Usha Simon APRN BASE FILLER 9 [facility] [place] [id number] [address] Nurse Practitioner Neurological Surgery 01/24/24 Dangelo Salinas MD [address] [address] Neurology 01/27/24 Anastasia Stearns, RN Lead Fender Mechanic 02/06/24 12/17/24 Germaine Aleman, W Community Health Worker Primary Care - CC 02/18/2412/17/24 Joya Lira RPH [address] [place] [address] Pharmacist Pharmacist 05/25/24 Joya Lira RPH [address] [place] [address] Assigned MTM Pharmacist 06/08/24 Fabi Coates MD [address] [place] [address] 75 [place], [place] 111895 Genetics, Clinical 06/18/24 Robin Zepeda MD 9 [facility] [id number] [place], [place] 580[address] Assigned Neuroscience Provider 07/08/24 08/07/24 Danna Cardenas PA-C 6405 [place], [place] 081055 Assigned Heart and Vascular Provider 07/08/24 12/05/24 Arthur Salas LICSW [address] [place] [address] Assigned Behavioral Health Provider 08/08/24 Randy Maradiaga DO [address] [place] [address] 432345 Assigned Neuroscience Provider 08/08/24 Tete Wang MD 2450 [place], [place] 335244 Genetics, Clinical 10/30/24 Dahlia Joyce MD [address] [place] [address] 423775 Radiology Neuroradiology 11/17/24 Lisa Zambrano MD 6405 [facility] [address] [place] [address] Assigned Heart and Vascular Provider 12/06/24 Tete Wang MD 2450 [place], [place] 425674 Assigned Pediatric Specialist Provider 01/06/25 Any Joiner MD 420 [facility] 276 [place] [address] Assigned Pulmonology Provider 02/05/25 Myles Bindu, AMELIE 909 [place] [address] Assigned Surgical Provider 03/08/25 Aftab Finn MD [address] 527[address] Dermatology 03/17/25 Aftab Finn MD 500 [place], [place] 842565 Assigned Dermatology Provider 04/07/25 Selena Mcfadden, [facility] Community Health Worker 05/25/2505/26 Red De Los Santos LSW Lead Fender Mechanic Primary Care - CC 05/26/25 Santa Menon PANilesC [address] [place] [address] 977895 Physician Swim Coach Physical Medicine and Rehabilitation 02/25/25 Alessandra Pereira, RN Specialty Fender Mechanic Neurological Surgery 06/02/25 documented as of this encounter
--- OUTSIDE RECORDS SUMMARY | 2025-07-07 18:22 | XMS_ITS | Encounter Summary ---
Author Organization [facility] Address [address] [place] [address] Care Team Providers Care Blood Bank Laboratory Professional Name Role Phone Winston Villatoro OD Unavailable [phone] Denise Woodson APRN LOOP TACKER Unavailable +[phone] Denise Woodson APRN LOOP TACKER Primary Care Provider Usha Simon APRN LOOP TACKER Unavailable + [phone] Dangelo Salinas MD Unavailable Joya Lira RP Unavailable [phone] Joya Lira [facility] Unavailable +[phone] Fabi Coates MD Unavailable [phone] Sinyigaya, Specmadi PERMIT TECHNICIAN Unavailable +[phone] Randy Maradiaga DO Unavailable + Tete Wang MD Unavailable +[phone] Dahlia Joyce MD Unavailable [phone] Lisa Zambrano MD Unavailable + [phone] Tete Wang MD Unavailable +[phone] Any Joiner MD Unavailable +[phone] Bindu Bueno OD Unavailable [phone] Aftab Finn MD Unavailable Randy Maradiaga DO Primary Care Prov ider Aftab Finn MD Unavailable Selena Mcfadden CHW Unavailable [phone] Chintan Denise [place] LOOP TACKER Primary Care Provider Red De Los Santos FOUNTAIN OPERATOR Unavailable [phone] Santa Menon PA-C Unavailable [phone] Alessandra Pereira RN Unavailable Encounter Details Date Type Department Care Team (Late st Contact Info) Description 02/03/2025 MyC Medical Advice [facility] Rehabilitation Services [facility] [address] [facility] [place] [address] Delicia George, PT [address] [place] [address] Social History Tobacco Use Types [...] re latives? 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 [employer] Not on file 01/22 Active Member [...] Answer Date Recorded PHQ-2 Score 3 01/25/2025 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 Not on file Not on file Not on file Not on file Not on file Not on file documented as of this encounter Plan of Treatment Upcoming Encounters Date Type Department Care Team (Late st Contact Info) Description 07/09/2025 11:00 AM CDT Virtual Visit [address] [phone] Bindu Bueno, OD 909 [place], [place] 959055 Rubi Johnson, OT [address] [address] 07/15/2025 2:30 PM CDT Office Visit [facility] [address] [place] [phone] Denise Woodson, [facility] [address] [place], [place] 1368068 07/16/2025 11:00 AM CDT Virtual Visit [address] [phone] Bindu Bueno, OD 909 [place], [place] 047665 Rubi Johnson, OT [address] 326[address] 07/23/2025 11:00 AM NANOSYSTEMS ENGINEER Virtual Visit [address] [phone] Bindu Bueno, OD 909 [place] [address] Rubi Johnson, OT [address] [address] 08/03/2025 11:00 AM NANOSYSTEMS ENGINEER Virtual Visit [address] [phone] Bindu Bueno, OD 909 [place] [address] Rubi Johnson, OT [address] [address] 08/03/2025 4:30 PM NANOSYSTEMS ENGINEER Virtual Visit [facility] [address] [phone] Any Joiner MD [address] 760425 08/17/2025 12:45 PM NANOSYSTEMS ENGINEER Virtual Visit [address] [phone] BuenoBindu, OD 909 [place] [address] Rubi Johnson, OT [address] 536447 10/04/2025 10:15 AM NANOSYSTEMS ENGINEER Virtual Visit [facility] Physical Medicine [facility] Rehabilitation Clinic [address] 3rd [place] [phone] Santa Menon PAMani [address] [place] [address] 01/19/2026 11:30 AM CDT Office Visit [facility] [place] [address] [place] [address] 3rd [place] [phone] Randy Maradiaga DO [address] [place] [address] documented as of this encounter Visit Diagnoses Not on filedocumented in this encounter Additional Health Concerns Assessment Noted Time PHQ-9 Depression Total Score: 025 11:39 AM CDT documented as of this encounter Care Teams Blood Bank Laboratory Professional Relationship Specialty Start Date End Date Winston Villatoro OD [facility] [place] [address] [place] [address] PCP - Ophthalmology Ophthalmology 02/11/13 Denise Woodson APRN LOOP TACKER [address] [address] [address] PCP - General Family Practice 09/21/20 04/07/25 Randy Maradiaga DO [address] [place] [address] PCP - General Neurology 04/08/25 05/25/25 Denise Woodson APRN LOOP TACKER [address] [address] [address] PCP - General Family Practice 05/26/25 Denise Woodson APRN LOOP TACKER [address] [address] Assigned PCP 07/17/20 Usha Simon APRN LOOP TACKER 909 [facility] [place] [id number] [place] [address] Nurse Practitioner Neurological Surgery 01/24/24 Dangelo Salinas MD [address] [place] [address] Neurology 01/27/24 Joya Lira [facility] [address] [place] [address] Pharmacist Pharmacist 05/25/24 Joya Lira [facility] [address] [place] [address] Assigned MTM Pharmacist 06/08/24 Fabi Coates MD [address] [place] [address] 75 [place] [address] Genetics, Clinical 06/18/24 Arthur Salas, [facility] [address] [place] [address] Assigned Behavioral Health Provider 08/08/24 Randy Maradiaga DO 909 [place] [address] Assigned Neuroscience Provider 08/08/24 Tete Wang MD [address] [place] [address] Genetics, Clinical 10/30/24 Dahlia Joyce MD [address] [place] [address] Radiology Neuroradiology 11/17/24 Lisa Zambrano MD 6405 [facility] [address] [place] [address] Assigned Heart and Vascular Provider 12/06/24 [place] [address] [place] [address] Assigned Pediatric Specialist Provider 01/06/25 Any Joiner MD [address] [place] [address] 276 [place] [address] Assigned Pulmonology Provider 02/05/25 Bindu Bueno OD [address] [place] [address] Assigned Surgical Provider 03/08/25 Aftab Finn MD [address] [address] Dermatology 03/17/25 Aftab Finn MD [address] [place] [address] 478825 Assigned Dermatology Provider 04/07/25 Selena Mcfadden, W Community Health Worker 05/25/2505/26 Red De Los Santos LSW Lead [place] Primary Care - CC 05/26/25 Santa Menon, PANilesC [address] [place] [address] 657795 Physician Basic Sciences Professor Physical Medicine and Rehabilitation 02/25/25 Alessandra Pereira RN Specialty [place] Neurological Surgery 06/02/25 documented as of this encounter
--- OUTSIDE RECORDS SUMMARY | 2025-07-07 18:22 | XMS_ITS | Encounter Summary ---
Author Organization [place] Address [address] [place] [address] Care Team Providers Care Ultrasonic Solderer Name Role Phone Winston Villatoro OD Unavailable [phone] Denise Woodson APRN AVP Unavailable [phone] Denise Woodson APRN AVP Primary Care Provider Usha Simon APRN AVP Unavailable + [phone] Dangelo Salinas MD Unavailable Joya Lira RP Unavailable [phone] Joya Lira [facility] Unavailable +[phone] Fabi Coates MD Unavailable [phone] Sinyigaya, Specmadi GAS GOLF CART REPAIRER Unavailable +[phone] Randy Maradiaga DO Unavailable + Tete Wang MD Unavailable +[phone] Dahlia Joyce MD Unavailable +[phone] Lisa Zambrano MD Unavailable + [phone] Tete Wang MD Unavailable +[phone] Any Joiner MD Unavailable +[phone] Binud Bueno OD Unavailable +[phone] Aftab Finn MD Unavailable Randy Maradiaga DO Primary Care Prov ider Aftab Finn MD Unavailable Selena Mcfadden CHW Unavailable [phone] ChintanDenise APRN AVP Primary Care Provider Red De Los Santos WEB PRESSMAN Unavailable [phone] Santa Menon PA-C Unavailable +[phone] Alessandra Pereira RN Unavailable Encounter Details Date Type Department Care Team (Late st Contact Info) Description 01/14/2025 MyC Medical Advice [facility] [address] [address] Randy Maradiaga, [address] [place] [address] Social History Tobacco Use Types Packs/Day [...] How often do you attend rastafari or anglican serv ices? Never 09/16/2024 Do [...] Answer Date Recorded PHQ-2 Score 1 01/07/2025 [facility] - Occupational Stress [...] on file Legal Sex Female 4:05 AM TIRE FABRIC INSPECTOR Gender Identity Not on file Sexual [...] 07/09/2025 11:00 AM CDT Virtual Visit [address] [phone] Bindu Bueno, OD 909 [place], [place] [phone] Rubi Johnson, OT [address] 005847 07/15/2025 2:30 PM CDT Office Visit [facility] [address] [place] [address] Denise Woodson APRN AVP [address] [place], [place] 8174768 07/16/2025 11:00 AM CDT Virtual Visit [address] [phone] Bindu Bueno, OD 909 [place], [place] [address] Rubi Johnson, OT [address] [id number] 07/23/2025 11:00 AM TIRE FABRIC INSPECTOR Virtual Visit [address] [phone] Bindu Bueno, OD 909 [place] [address] Rubi Johnson, OT [address] [address] 08/03/2025 11:00 AM TIRE FABRIC INSPECTOR Virtual Visit [address] [phone] BuenoBindu, OD [address] [place] [address] 252575 Rubi Johnson, OT [address] [address] 08/03/2025 4:30 PM TIRE FABRIC INSPECTOR Virtual Visit [facility] [address] [phone] Any Joiner MD [address] [place] [address] 799335 08/17/2025 12:45 PM TIRE FABRIC INSPECTOR Virtual Visit [address] [phone] Bindu Bueno, OD [address] [place] [address] Rubi Johnson, OT [address] 789967 10/04/2025 10:15 AM TIRE FABRIC INSPECTOR Virtual Visit [facility] [address] [address] Santa Menon, [place] [address] [place] [address] 221015 01/19/2026 11:30 AM CDT Office Visit [facility] [address] [phone] Randy Maradiaga DO [address] [place] [address] 461635 documented as of this encounter Visit Diagnoses Not on filedocumented in this encounter Additional Health Concerns Assessment Noted Time PHQ-9 Depression Total Score: 7 01/08/20 8:00 AM CDT documented as of this encounter Care Teams Ultrasonic Solderer Relationship Specialty Start Date End Date Winston Villatoro OD [facility] Call [address] [facility] [address] [place] [address] PCP - Ophthalmology Ophthalmology 02/11/13 Denise Woodson APRN AVP [address] [facility] [address] PCP - General Family Practice 09/21/20 04/07/25 Randy Maradiaga DO [address] [place] [address] PCP - General Neurology 04/08/25 05/25/25 Denise Woodson APRN AVP [address] [place] [address] PCP - General Family Practice 05/26/25 Denise Woodson APRN AVP [address] [place] [address] Assigned PCP 07/17/20 Usha Simon APRN AVP 909 [facility] [id number] [place] [address] Nurse Practitioner Neurological Surgery 01/24/24 Dangelo Salinas MD [address] [place] [address] Neurology 01/27/24 Joya Lira [facility] [address] [facility] [address] Pharmacist Pharmacist 05/25/24 Joya Lira [facility] [address] [facility] [place] [address] Assigned MTM Pharmacist 06/08/24 Fabi Coates MD 420 [facility] 75 [place] [address] Genetics, Clinical 06/18/24 Arthur Salas, [facility] [address] [place] [address] Assigned Behavioral Health Provider 08/08/24 Randy Maradiaga DO 909 [place] [address] Assigned Neuroscience Provider 08/08/24 Tete Wang MD 2450 [place] [address] Genetics, Clinical 10/30/24 Dahlia Joyce MD [address] [place] [address] Radiology Neuroradiology 11/17/24 [place] [address] [place] [address] [place] [address] 989745 Assigned Heart and Vascular Provider 12/06/24 Tete Wang MD [address] [place] [address] Assigned Pediatric Specialist Provider 01/06/25 Any Joiner MD [address] [place] [address] 965365 Assigned Pulmonology Provider 02/05/25 Bindu Bueno OD 909 [place], [place] 648005 Assigned Surgical Provider 03/08/25 Aftab Finn MD [address] [address] Dermatology 03/17/25 Aftab Finn MD [address] [place] [address] 898015 Assigned Dermatology Provider 04/07/25 Selena Mcfadden, [place] Community Health Worker 05/25/2505/26 Red De Los Santos WEB PRESSMAN Lead Biotech Production Specialist Primary Care - CC 05/26/25 Santa Menon PA-C [address] [place] [address] Physician Vaccines Solutions Specialist Physical Medicine and Rehabilitation 02/25/25 Alessandra Pereira RN Specialty Biotech Production Specialist Neurological Surgery 06/02/25 documented as of this encounter
--- OUTSIDE RECORDS SUMMARY | 2025-07-07 18:22 | XMS_ITS | Clinical Summary ---
Author Organization [facility] Address [address] [place] [address] 377[address] Care Team Providers Care Senior Foreman Name Role Phone Keira Irvin MD Primary [...] Immunization Administration Dates Next Due COVID-19 vaccine ([employer] 30mcg/0.3mL) PF, MDV 07/07/2021 Hepatitis B, Unspecified [...] on file Legal Sex Female 5:27 AM DELIVERY TABLE OPERATOR Gender Identity Not on file Sexual [...] 12+ 01/12/2024 01/11/2023, 01/09/2023 COVID-19 vaccine series (2024- season) 2025 07/07/2021, 11/20/2020 Influenza Vaccine (#1) 2025 2, 06/23/2021, 07/27/2020, Additional history exists Tetanus booster 01/04/2031 01/04/2021, 0511/2010, 04/05/2003, Additional history exists RSV vaccine for adults or (1 - 1-dose 75+ series) 2051 Pneumococcal series for age 6-49 Aged Out 03/16/2004 No longer eligible based on patient's age to complete this topic Hepatitis B series for 19+ Completed 03/03, 03/03/2012, 11/07/2011, Additional history exists Procedures Procedure Name Priority Date/Time Associated Diagnosis Comments LIPID PANEL W REFLEX MEASURED LDL Routine 08/03/2011 10:31 AM DELIVERY TABLE OPERATOR Screening for other and unspecified cardiovascular conditions from Last 3 Months or Most Recently Relevant to Health Maintenance Results * LIPID PANEL W REFLEX MEASURED LDL (08/03/2011 10:31 AM DELIVERY TABLE OPERATOR) CHOLESTEROL,TOTAL 171 110 - 199 mg/dL [facility] TRIGLYCERIDES 67 <150 mg/dL [facility] HDL CHOLESTEROL 43 >40 mg/dL [facility] CHOL/HDL RATIO 3.98 <4.51 [facility] LDL CHOLESTEROL 115 <131 mg/dL [facility] PATIENT STATUS Fasting [facility] Blood specimen (specimen) BLOOD SPECIMEN / Unknown 08/03/2011 10:31 AM DELIVERY TABLE OPERATOR 08/03/2011 10:23 AM DELIVERY TABLE OPERATOR us Jasvir Pickens MD CHEMISTRY Final Re sult [facility] [address] [place] [address] from Last 3 Months or Most Recently Relevant to Health Maintenance Insurance PRIMO RODRIGUEZ [id number] Advance Directives * Full Code (Latest Code Status on File) Date Activated Date Inactivated Comments 01/09/2024 7:44 AM 01/09/2024 6:26 PM Question Answer Comments Code Status Discussion: Reviewed Preferences Care Teams Senior Foreman Relationship Specialty Start Date End Date Keira Irvin MD [address] [place] [address] PCP - General Family Practice 01/08/24
--- OUTSIDE RECORDS SUMMARY | 2025-07-07 18:22 | XMS_ITS | Encounter Summary ---
Author Organization [place] Address [address] [place] [address] Care Team Providers Care Standard Machine Stitcher Name Role Phone Winston Villatoro OD Unavailable [phone] Denise Woodson APRN CONTAINERS SALES REPRESENTATIVE Unavailable [phone] Denise Woodson APRN CONTAINERS SALES REPRESENTATIVE Primary Care Provider Usha Simon APRN CONTAINERS SALES REPRESENTATIVE Unavailable Dangelo Salinas MD Unavailable Anastasia Stearns RN Unavailable Germaine Aleman CHW Unavailable [phone] Joya Lira RP Unavailable Joya Lira [facility] Unavailable Fabi Coates MD Unavailable [phone] Robin Zepeda MD Unavailable Danna Cardenas PA-C Unavailable +[phone] Arthur SalasSW Unavailable +[phone] Randy Maradaiga DO Unavailable + Tete Wang MD Unavailable +[phone] Dahlia Joyce MD Unavailable Lisa Zambrano MD Unavailable Tete Wang MD Unavailable +[phone] Any Joiner MD Unavailable [phone] Bindu Bueno OD Unavailable [phone] Aftab Finn MD Unavailable Anne Maradiagaony Yobany DO Primary Care Prov ider Aftab Finn MD Unavailable Selena Mcfadden CHW Unavailable [phone] Denise Woodson APRN CONTAINERS SALES REPRESENTATIVE Primary Care Provider Red De Los Santos CHURN TENDER Unavailable [phone] Santa Menon PA-C Unavailable [phone] Alessandra Pereira RN Unavailable Reason for Visit * Reason Onset Date Comments Forms 07/29/2024 [facility] - Return to work/ Workability Form Encounter Details Date Type Department Care Team (Late st Contact Info) Description 07/29/2024 [facility] Adv[facility] [address] [place] [address] Denise Woodson APRN [facility] [address] [place] [address] Forms (Patient/[employer] - [...] How often do you attend zoroastrianism or moravian serv ices? 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 Patient/[facility] Where did/will the form come from? form was sent via M.dot When is form/letter needed by: 08/04/24 How would you like the form/letter returned: Fax to [facility] [employer] [facility] (JOSE LUIS on file - 05/21/24),then send form to Pt via M.dot Patient Notified form requests are processed in 5-7 business days:Yes Could we send this information to you in M.dot or would you prefer to receive a phone call?: Patient would prefer a phone call Okay to leave a detailed message?: N/A at Cell number on file: Telephone Information: IC POLICY ANALYST documented in this encounter Plan of Treatment Upcoming Encounters Date Type Department Care Team (Late st Contact Info) Description 07/09/2025 11:00 AM CDT Virtual Visit [facility] [address] [place] [phone] BuenoBindu flores, OD 909 [place] [address] Rubi Johnson, OT [facility] [address] [place], [place] [address] 07/15/2025 2:30 PM CDT Office Visit [facility] [address] [place] [phone] Denise Woodson APRN [facility] [address] [place], [place] 7006068 07/16/2025 11:00 AM CDT Virtual Visit [facility] [address] [place] [phone] BuenoBindu, OD 909 [place], [place] 128535 Rubi Johnson, OT [facility] [address] [place] [address] 07/23/2025 11:00 AM PUBLIC POLICY ANALYST [facility] [address] [place] [phone] MylesBindu, OD 909 [place], [place] 143385 Rubi Johnson, OT [facility] [address] [place], [place] 623077 08/03/2025 11:00 AM PUBLIC POLICY ANALYST Virtual Visit [facility] 150 [place] [address] Bindu Bueno, OD 909 [place] [address] Rubi Johnson, OT [address] [address] 08/03/2025 4:30 PM PUBLIC POLICY ANALYST Virtual Visit [facility] [address] [address] Any Joiner MD [address] [place] [address] 089395 08/17/2025 12:45 PM PUBLIC POLICY ANALYST Virtual Visit [facility] 150 [place] [phone] Bindu Bueno, OD 909 [place], [place] 587205 Rubi Johnson, OT FV [address] 247157 10/04/2025 10:15 AM PUBLIC POLICY ANALYST Virtual Visit [facility] [address] [phone] Santa Menon PA-C [address] [place] [address] 918115 01/19/2026 11:30 AM CDT Office Visit [facility] Neurology Clinic [address] [address] Randy Maradiaga DO 909 [place] [address] documented as of this encounter Visit Diagnoses Not on filedocumented in this encounter Additional Health Concerns Infection Onset Date Last Indicated Resolved Time Rule Out COVID-19 09/13/2024 09/13/2024 09/13/2024 12:31 PM PUBLIC POLICY ANALYST Rule Out COVID-19 11/14/2024 11/14/2024 11/14/2024 8:25 PM PUBLIC POLICY ANALYST Assessment Noted Time PHQ-9 Depression Total Score: 14 024 11:46 AM CDT documented as of this encounter Care Teams Standard Machine Stitcher Relationship Specialty Start Date End Date Winston Villatoro OD [facility] [place] [address] [place] [address] PCP - Ophthalmology Ophthalmology 02/11/13 Denise Woodson APRN CONTAINERS SALES REPRESENTATIVE [address] [place] [address] PCP - General Family Practice 09/21/20 04/07/25 Randy Maradiaga DO [address] [place] [address] PCP - General Neurology 04/08/25 05/25/25 Denise Woodson APRN CONTAINERS SALES REPRESENTATIVE [address] [address] [address] PCP - General Family Practice 05/26/25 Denise Woodson APRN CONTAINERS SALES REPRESENTATIVE [address] [address] [address] Assigned PCP 07/17/20 Usha Simon APRN CONTAINERS SALES REPRESENTATIVE [address] [place], [place] [address] [address] Nurse Practitioner Neurological Surgery 01/24/24 Dangelo Salinas MD [address] [place] [address] Neurology 01/27/24 Anastasia Stearns, RN Lead Csr Retail 02/06/24 12/17/24 Germaine Aleman, W Community Health Worker Primary Care - CC 02/18/2412/17/24 Joya Lira [facility] [address] [place] [address] Pharmacist Pharmacist 05/25/24 Joya Lira [facility] [address] [place] [address] Assigned MTM Pharmacist 06/08/24 Fabi Coates MD [address] [place] [address] 75 [place] [address] Genetics, Clinical 06/18/24 Robin Zepeda MD 909 [facility]121[address]J [place] [address] Assigned Neuroscience Provider 07/08/24 08/07/24 Danna Cardenas PA-C 6405 [place] [address] Assigned Heart and Vascular Provider 07/08/24 12/05/24 Arthur Salas LICSW [address] [place] [address] Assigned Behavioral Health Provider 08/08/24 Randy Maradiaga DO [address] [place] [address] Assigned Neuroscience Provider 08/08/24 Tete aWng MD [address] [place] [address] Genetics, Clinical 10/30/24 Dahlia Joyce MD [address] [place] [address] Radiology Neuroradiology 11/17/24 Lisa Zambrano MD [address] [place] [address] 479275 Assigned Heart and Vascular Provider 12/06/24 Tete Wang MD [address] [place] [address] Assigned Pediatric Specialist Provider 01/06/25 Any Joiner MD [address] [place] [address] 276 [place], [place] 313955 Assigned Pulmonology Provider 02/05/25 Bindu Bueno OD [address] [place] [address] 557555 Assigned Surgical Provider 03/08/25 Aftab Finn MD [address] [place] [address] 531340 Dermatology 03/17/25 Aftab Finn MD [address] [place] [address] Assigned Dermatology Provider 04/07/25 Selena Mcfadden, [facility] Community Health Worker 05/25/2505/26 Red De Los Santos CHURN TENDER Lead Csr Retail Primary Care - CC 05/26/25 Santa Menon PANilesC [address] [place] [address] Physician Belt Tender Physical Medicine and Rehabilitation 02/25/25 Alessandra Pereira, RN Specialty Csr Retail Neurological Surgery 06/02/25 documented as of this encounter
--- OUTSIDE RECORDS SUMMARY | 2025-07-07 18:22 | XMS_ITS | Encounter Summary ---
Author Organization [place] Address [address] [place] [address] Care Team Providers Care Features Editor Name Role Phone Winston Villatoro OD Unavailable [phone] Denise Woodson APRN CASE MAKER Unavailable [phone] Denise Woodson APRN CASE MAKER Primary Care Provider Usha Simon APRN CASE MAKER Unavailable + [phone] Dangelo Salinas MD Unavailable Joya Lira RP Unavailable [phone] Joya Lira [facility] Unavailable [phone] Fabi Coates MD Unavailable [phone] Sinyigaya, Specmadi INTERNAL CONTROLS SPECIALIST Unavailable [phone] Randy Maradiaga DO Unavailable + Tete Wang MD Unavailable +[phone] Dahlia Joyce MD Unavailable [phone] Lisa Zambrano MD Unavailable + [phone] Tete Wang MD Unavailable +[phone] Any Joiner MD Unavailable [phone] Bindu Bueno OD Unavailable [phone] Aftab Finn MD Unavailable Randy Maradiaga DO Primary Care Prov ider Aftab Finn MD Unavailable Selena Mcfadden CHW Unavailable [phone] Chintan Denise BARRERA CASE MAKER Primary Care Provider Red De Los Santos SEWER MAINTENANCE SUPERVISOR Unavailable [phone] Santa Menon PA-C Unavailable [phone] Alessandra Pereira RN Unavailable Encounter Details Date Type Department Care Team (Late st Contact Info) Description 03/11/2025 MyC Medical Advice [facility] Lung Science and [address] [address] Gloria Cates, RN Social History Tobacco Use Types Packs/Day [...] re latives? 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 Sikh Services Not on file 01/22 Active Member [...] Answer Date Recorded PHQ-2 Score 3 01/25/2025 [facility] [place] of Occupat ional Health - Occupational Stress [...] on file Legal Sex Female 4:05 AM CORPORATE DIRECTOR OF HUMAN RESOURCES Gender Identity Not on file Sexual Orientation [...] 07/09/2025 11:00 AM CDT Virtual Visit [address] [phone] Bueno, Bindu, OD 909 [place], [place] 425185 Rubi Johnson, OT F[facility] [address] 137[address] 07/15/2025 2:30 PM CDT Office Visit [facility] [address] [place] [phone] Denise Woodson, BARRERA CASE MAKER [address] [place], [place] 5416868 07/16/2025 11:00 AM CDT Virtual Visit [address] [phone] Bindu Bueno, OD 909 [place], [place] 903565 Rubi Johnson, OT F[facility] [address] 845657 07/23/2025 11:00 AM CORPORATE DIRECTOR OF HUMAN RESOURCES Virtual Visit [address] [phone] Bindu Bueno, OD 909 [place], [place] 602235 Rubi Johnson, OT [address] [address] 08/03/2025 11:00 AM CORPORATE DIRECTOR OF HUMAN RESOURCES Virtual Visit [address] [phone] Bindu Bueno, OD 909 [place], [place] 859525 Rubi Johnson, OT [address] [address] 08/03/2025 4:30 PM CORPORATE DIRECTOR OF HUMAN RESOURCES Virtual Visit [facility] [address] [phone] Any Joiner MD [address] [place] [address] 700795 08/17/2025 12:45 PM CORPORATE DIRECTOR OF HUMAN RESOURCES Virtual Visit [address] [phone] Bindu Bueno, OD 9 [place], [place] 7504[address] Rubi Johnson, OT [address] [address] 10/04/2025 10:15 AM CORPORATE DIRECTOR OF HUMAN RESOURCES Virtual Visit [facility] [address] [phone] Santa Menon, PANilesC [address] [place] [address] 600075 01/19/2026 11:30 AM CDT Office Visit [facility] [place] [address] [facility] 3rd [place] [address] Randy Maradiaga DO [address] [place] [address] documented as of this encounter Visit Diagnoses Not on filedocumented in this encounter Additional Health Concerns Assessment Noted Time PHQ-9 Depression Total Score: 11 025 11:39 AM CDT documented as of this encounter Care Teams Features Editor Relationship Specialty Start Date End Date Winston Villatoro, [facility] [place] [address] [facility] [address] [place] [address] PCP - Ophthalmology Ophthalmology 02/11/13 Denise Woodson APRN CASE MAKER [address] [address] [address] PCP - General Family Practice 09/21/20 04/07/25 Randy Maradiaga DO [address] [place] [address] PCP - General Neurology 04/08/25 05/25/25 Denise Woodson APRN CASE MAKER [address] [address] [address] PCP - General Family Practice 05/26/25 Denise Woodosn APRN CASE MAKER [address] [address] [address] Assigned PCP 07/17/20 Usha Simon APRN CASE MAKER [address] [place] [address] [id number] [place] [address] Nurse Practitioner Neurological Surgery 01/24/24 Dangelo Salinas MD [address] [place] [address] Neurology 01/27/24 Joya Lira [facility] [address] [place] [address] Pharmacist Pharmacist 05/25/24 Joya Lira [facility] [address] [place] [address] Assigned MTM Pharmacist 06/08/24 Fabi Coates MD [address] [place] [address] 75 [place], [place] 971555 Genetics, Clinical 06/18/24 Arthur Salas, [facility] [address] [phone] Assigned Behavioral Health Provider 08/08/24 Randy Maradiaga DO 9 [place] [address] Assigned Neuroscience Provider 08/08/24 Tete Wang MD 2450 [place], [place] 729054 Genetics, Clinical 10/30/24 Dahlia Joyce MD 909 [place] [address] Radiology Neuroradiology 11/17/24 Lisa Zambrano MD [address] [facility] [address] [place] [address] Assigned Heart and Vascular Provider 12/06/24 Tete Wang MD 2450 [place] [address] Assigned Pediatric Specialist Provider 01/06/25 Any Joiner MD [address] 082955 Assigned Pulmonology Provider 02/05/25 Bindu Bueno OD [address] [place] [address] 808895 Assigned Surgical Provider 03/08/25 Aftab Finn MD [address] 918490 Dermatology 03/17/25 Aftab Finn MD 500 [place] [address] Assigned Dermatology Provider 04/07/25 Selena Mcfadden, [facility] Community Health Worker 05/25/2505/26 Red De Los Santos, SEWER MAINTENANCE SUPERVISOR Lead Reel System Operator Primary Care - CC 05/26/25 Santa Menon, PA-C 9 [place], [place] 975295 Physician Chain Saw Mechanic Physical Medicine and Rehabilitation 02/25/25 Alessandra Pereira, RN Specialty Reel System Operator Neurological Surgery 06/02/25 documented as of this encounter
--- OUTSIDE RECORDS SUMMARY | 2025-07-07 18:22 | XMS_ITS | Encounter Summary ---
Author Organization [facility] Address [address] [place] [address] Care Team Providers Care Trust Officer Name Role Phone None Reported, Pcp Primary Care Provider Unavail able Encounter Details Date Type Department Care Team (Late st Contact Info) Description 05/12/2013 Historical Ophthalmology RST OPH Jonathan Bonilla M.D. [address] [place] [address] [phone] Social History Tobacco Use Types Packs/Day Years Used Date Smoking Tobacco: Never Assessed Comments Unknown Sex and Gender Information Value Date Recorded Sex Assigned at Female 02/11/2018 8:36 AM CDT Legal Sex Female 8:24 AM REHABILITATION TECH Gender Identity Female 02/11/2018 8:36 AM CDT [...] corneal thickness CDM Reports - EYEGEN Id: [id number] Status: Fnl documented in this encounter Plan of Treatment Not on file documented as of this encounter Visit Diagnoses Not on filedocumented in this encounter Additional Health Concerns Infection Onset Date Last Indicated Resolved Time COVID19 Pending 07/11/2020 07/11/2020 07/12/2020 5 :56 PM CDT COVID19 Pending 07/17/2020 07/17/2020 07/17/2020 9 :18 PM REHABILITATION TECH COVID19 Pending 09/19/2020 09/19/2020 10/09/2020 4 :45 AM REHABILITATION TECH COVID19 Pending 10/25/2020 10/26/2020 10/27/2020 9 :59 AM REHABILITATION TECH COVID19 Pending 06/03/2021 06/03/2021 06/03/2021 9 :40 AM CDT COVID19 Pending 06/03/2021 06/03/2021 06/03/2021 1 0:36 PM CDT COVID19 Pending 08/09/2021 08/09/2021 08/11/2021 1 2:57 AM REHABILITATION TECH COVID19 Pending 06/26/2022 06/26/2022 06/26/2022 5 :47 PM CDT Assessment Noted Time PHQ-9 Depression Total Score: 8 09/18/19 13 7:41 AM REHABILITATION TECH documented as of this encounter Care Teams Trust Officer Relationship Specialty Start Date End Date None Reported, Pcp PCP - General Family Medicine 06/28/25 documented as of this encounter
--- OUTSIDE RECORDS SUMMARY | 2025-07-07 18:22 | XMS_ITS | Encounter Summary ---
Author Organization [facility] Address [address] [place] [address] Care Team Providers Care Rotary Furnace Tender Name Role Phone Winston Villatoro OD Unavailable [phone] Denise Woodson APRN PROTOTYPE SPECIAL BUILD Unavailable +[phone] Denise Woodson APRN PROTOTYPE SPECIAL BUILD Primary Care Provider Usha Simon APRN PROTOTYPE SPECIAL BUILD Unavailable + [phone] Dangelo Salinas MD Unavailable Joya Lira RP Unavailable +[phone] Joya Lira [facility] Unavailable +[phone] Fabi Coates MD Unavailable [phone] Sinyigaya, Specmadi M1A1 TANK CREWMAN Unavailable +[phone] Randy Maradiaga DO Unavailable + Tete Wang MD Unavailable +[phone] Dahlia Joyce MD Unavailable +[phone] Lisa Zambrano MD Unavailable + [phone] Tete Wang MD Unavailable +[phone] Any Joiner MD Unavailable +[phone] Bindu Bueno OD Unavailable +[phone] Aftab Finn MD Unavailable Randy Maradiaga DO Primary Care Prov ider Aftab Finn MD Unavailable Selena Mcfadden CHW Unavailable [phone] Chintan Denise BARRERA PROTOTYPE SPECIAL BUILD Primary Care Provider Red De Los Santos ROTARY FURNACE TENDER Unavailable [phone] Santa Menon PA-C Unavailable +[phone] Alessandra Pereira RN Unavailable Encounter Details Date Type Department Care Team (Late st Contact Info) Description 03/13/2025 MyC Medical Advice Initial Department Phoebe Del [...] re latives? 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 Religion Services Not on file 01/22 Active Member [...] 4 03/16/2025 [facility] [place] of Occupat ional Health - Occupational Stress [...] on file Legal Sex Female 4:05 AM TYRE RETREADER Gender Identity Not on file Sexual Orientation [...] 07/09/2025 11:00 AM CDT Virtual Visit [facility] [address] [place] [phone] Bindu Bueno, OD 909 [place], [place] 8[address] Rubi [place], OT [address] [address] 07/15/2025 2:30 PM CDT Office Visit [facility] [address] [place] [phone] Denise Woodson APRN PROTOTYPE SPECIAL BUILD [address] [place], [place] 3298468 07/16/2025 11:00 AM CDT Virtual Visit [address] [phone] BuenoBindu flores, OD 909 [place], [place] 386725 Rubi [place], OT [address] 687487 07/23/2025 11:00 AM TYRE RETREADER Virtual Visit [address] [phone] MylesBindu, OD 909 [place], [place] 4172[address] Rubi [place], OT [address] 693597 08/03/2025 11:00 AM TYRE RETREADER Virtual Visit [address] [phone] Bindu Bueno, OD 909 [place], [place] 133345 Rubi [place], OT [address] [address] 08/03/2025 4:30 PM TYRE RETREADER Virtual Visit [facility] [address] [phone] Any Joiner MD [address] [place] [address] 536975 08/17/2025 12:45 PM TYRE RETREADER Virtual Visit [address] [phone] Bindu Bueno, OD 909 [place], [place] 058525 Rubi [place], OT [address] 497497 10/04/2025 10:15 AM TYRE RETREADER Virtual Visit [facility] [address] [address] Santa Menon PA-C [address] [place] [address] [id number] 01/19/2026 11:30 AM CDT Office Visit [facility] Neurology Clinic [address] [phone] Randy Maradiaga DO 909 [place] [address] documented as of this encounter Visit Diagnoses Not on filedocumented in this encounter Additional Health Concerns Assessment Noted Time PHQ-9 Depression Total Score: 11 025 11:39 AM CDT documented as of this encounter Care Teams Rotary Furnace Tender Relationship Specialty Start Date End Date Winston Villatoro OD [facility] [place] [address] [place] [address] PCP - Ophthalmology Ophthalmology 02/11/13 Denise Woodson APRN PROTOTYPE SPECIAL BUILD [address] [place] [address] PCP - General Family Practice 09/21/20 04/07/25 Randy Maradiaga DO 909 [place] [address] PCP - General Neurology 04/08/25 05/25/25 Denise Woodson APRN PROTOTYPE SPECIAL BUILD [address] [place] [address] PCP - General Family Practice 05/26/25 Denise Woodson APRN PROTOTYPE SPECIAL BUILD [address] [place] [address] Assigned PCP 07/17/20 Usha Simon APRN PROTOTYPE SPECIAL BUILD 9 [facility] [id number] [place] [address] Nurse Practitioner Neurological Surgery 01/24/24 Dangelo Salinas MD [address] [place] [address] Neurology 01/27/24 Joya Lira [facility] [address] [place] [address] Pharmacist Pharmacist 05/25/24 Joya Lira [facility] [address] [place] [address] Assigned MTM Pharmacist 06/08/24 Fabi Coates MD 420 [facility] 75 [place] [address] Genetics, Clinical 06/18/24 Arthur Salas, [facility] [address] [place] [address] Assigned Behavioral Health Provider 08/08/24 Randy Maradiaga DO 909 [place], [place] 394005 Assigned Neuroscience Provider 08/08/24 Tete Wang MD 2450 [place] [address] Genetics, Clinical 10/30/24 Dahlia Joyce MD 909 [place], [place] 186925 Radiology Neuroradiology 11/17/24 Lisa Zambrano MD 6405 [facility] [address] [place] [address] Assigned Heart and Vascular Provider 12/06/24 Tete Wang MD 2450 [place] [address] Assigned Pediatric Specialist Provider 01/06/25 Any Joiner MD [address] [place] [address] 276 [place] [address] Assigned Pulmonology Provider 02/05/25 Bindu Bueno OD [address] [place] [address] Assigned Surgical Provider 03/08/25 Aftab Finn MD [address] [address] Dermatology 03/17/25 Aftab Finn MD 500 [place], [place] 416355 Assigned Dermatology Provider 04/07/25 Selena Mcfadden, [facility] Community Health Worker 05/25/2505/26 Red De Los Santos LSW Lead Hole Digger Truck Driver Primary Care - CC 05/26/25 Santa Menon, PA-C [address] [place] [address] 850825 Physician Manufacturing Worker Physical Medicine and Rehabilitation 02/25/25 Alessandra Pereira, RN Specialty Hole Digger Truck Driver Neurological Surgery 06/02/25 documented as of this encounter
--- OUTSIDE RECORDS SUMMARY | 2025-07-07 18:22 | XMS_ITS | Encounter Summary ---
Author Organization [facility] Address [address] [place] [address] Care Team Providers Care Human Machine Interface Engineer Name Role Phone Winston Villatoro OD Unavailable [phone] Denise Woodson APRN HOME HEALTH CLINICAL SUPERVISOR Unavailable +[phone] Denise Woodson APRN HOME HEALTH CLINICAL SUPERVISOR Primary Care Provider Usha Simon APRN HOME HEALTH CLINICAL SUPERVISOR Unavailable + [phone] Dangelo Salinas MD Unavailable Joya Lira RP Unavailable +[phone] Joya Lira [facility] Unavailable [phone] Fabi Coates MD Unavailable [phone] Sinyigaya, Specmadi OVERSIZE LOAD PILOT ESCORT Unavailable +[phone] Randy Maradiaga DO Unavailable + Tete Wang MD Unavailable +[phone] Dahlia Joyce MD Unavailable [phone] Lisa Zambrano MD Unavailable + [phone] Tete Wang MD Unavailable [phone] Any Joiner MD Unavailable [phone] Bindu Bueno OD Unavailable [phone] Aftab Finn MD Unavailable Randy Maradiaga DO Primary Care Prov ider Aftab Finn MD Unavailable Selena Mcfadden CHW Unavailable [phone] ChintanDenise APRN HOME HEALTH CLINICAL SUPERVISOR Primary Care Provider Red De Los Santos SOFTWARE SALES REPRESENTATIVE Unavailable [phone] Santa Menon PA-C Unavailable +[phone] Alessandra Pereira RN Unavailable Encounter Details Date Type Department Care Team (Late st Contact Info) Description 01/14/2025 MyC Medical Advice [facility] [address] [address] Xochilt Mancuso, [address] [place] [address] Social History Tobacco Use Types [...] How often do you attend worship or sikhism serv ices? Never 09/16/2024 Do [...] you are drinking? Patient does not drink 4 Q3: How often do you have si x or more drinks on one occasion? 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 file Not on file Not on file Not on file Not on file Not on file Not on file documented as of this encounter Plan of Treatment Upcoming Encounters Date Type Department Care Team (Late st Contact Info) Description 07/09/2025 11:00 AM CDT Virtual Visit [address] [phone] Bindu Bueno, OD 909 [place], [place] Rubi [place], OT [address] [address] 07/15/2025 2:30 PM CDT Office Visit [facility] [address] [place] [address] Denise Woodson, [facility] HOME HEALTH CLINICAL SUPERVISOR [address] [place], [place] 4863968 07/16/2025 11:00 AM CDT Virtual Visit [address] [phone] Bindu Bueno, OD 909 [place], [place] 9[address] Rubi [place], OT [address] 945097 07/23/2025 11:00 AM PLATE PRINTER [facility] 150 [place] [phone] Bindu Bueno, OD 909 [place] [address] Rubi [place], OT [address] 241717 08/03/2025 11:00 AM PLATE PRINTER Virtual Visit [address] [phone] Bindu Bueno, OD [address] [place] [address] Rubi [place], OT [address] [address] 08/03/2025 4:30 PM PLATE PRINTER Virtual Visit [facility] [address] [phone] Any Joiner MD [address] 079345 08/17/2025 12:45 PM PLATE PRINTER Virtual Visit [address] [phone] Bindu Bueno, OD 909 [place], [place] 312085 Rubi [place], OT [address] 952997 10/04/2025 10:15 AM PLATE PRINTER Virtual Visit [facility] [address] [phone] Santa Menon PA-C [address] [place] [address] 854365 01/19/2026 11:30 AM CDT Office Visit [facility] [address] [phone] Randy Maradiaga DO [address] [place] [address] 509905 documented as of this encounter Visit Diagnoses Not on filedocumented in this encounter Additional Health Concerns Assessment Noted Time PHQ-9 Depression Total Score: 7 01/08/20 8:00 AM CDT documented as of this encounter Care Teams Human Machine Interface Engineer Relationship Specialty Start Date End Date Winston Villatoro OD [facility] [place] [address] [place] [address] PCP - Ophthalmology Ophthalmology 02/11/13 Denise Woodson APRN HOME HEALTH CLINICAL SUPERVISOR [address] [place] [address] PCP - General Family Practice 09/21/20 04/07/25 Randy Maradiaga DO [address] [place] [address] PCP - General Neurology 04/08/25 05/25/25 Denise Woodson APRN HOME HEALTH CLINICAL SUPERVISOR [address] [place] [address] PCP - General Family Practice 05/26/25 Denise Woodson APRN HOME HEALTH CLINICAL SUPERVISOR [address] [place] [address] Assigned PCP 07/17/20 Usha Simon APRN HOME HEALTH CLINICAL SUPERVISOR 909 [facility] [id number] [place] [address] Nurse Practitioner Neurological Surgery 01/24/24 Dangelo Salinas MD [address] [place] [address] Neurology 01/27/24 Joya Lira RPH [address] [place] [address] Pharmacist Pharmacist 05/25/24 Joya Lira Joleen [address] [place] [address] Assigned MTM Pharmacist 06/08/24 Fabi Coates MD [address] [place] [address] 75 [place], [place] 534565 Genetics, Clinical 06/18/24 Arthur Salas [facility] [address] [place] [address] Assigned Behavioral Health Provider 08/08/24 Randy Maradiaga DO 909 [place], [place] 828835 Assigned Neuroscience Provider 08/08/24 Tete Wang MD 2450 [place], [place] 147804 Genetics, Clinical 10/30/24 Dahlia Joyce MD [address] [place] [address] 309535 Radiology Neuroradiology 11/17/24 [place] [address] [place] [address] [place] [address] 682285 Assigned Heart and Vascular Provider 12/06/24 [place] [address] [place] [address] 665494 Assigned Pediatric Specialist Provider 01/06/25 Any Joiner MD [address] [place] [address] 418935 Assigned Pulmonology Provider 02/05/25 Bindu Bueno OD [address] [place] [address] 910985 Assigned Surgical Provider 03/08/25 Aftab Finn MD [address] 831770 Dermatology 03/17/25 Aftab Finn MD 500 [place], [place] 380205 Assigned Dermatology Provider 04/07/25 Selena Mcfadden, W Community Health Worker 05/25/2505/26 Red De Los Santos LSW Lead Package Collector Primary Care - CC 05/26/25 Santa Menon, PANilesC 909 [place] [address] Physician Bundler Physical Medicine and Rehabilitation 02/25/25 Alessandra Pereira RN Specialty Package Collector Neurological Surgery 06/02/25 documented as of this encounter
--- OUTSIDE RECORDS SUMMARY | 2025-07-07 18:22 | XMS_ITS | Encounter Summary ---
Author Organization [facility] Address [address] [place] [address] Care Team Providers Care Tool Filer Hand Name Role Phone Winston Villatoro Se OD Unavailable [phone] Denise Woodson APRN SOLAR PHOTOVOLTAIC DESIGNER Unavailable +[phone] Denise Woodson APRN SOLAR PHOTOVOLTAIC DESIGNER Primary Care Provider Usha Simon APRN SOLAR PHOTOVOLTAIC DESIGNER Unavailable + [phone] Dangelo Salinas MD Unavailable Anastasia Stearns RN Unavailable Germaine Aleman CHW Unavailable Joya Lira RP Unavailable Joya Lira [facility] Unavailable Fabi Coates MD Unavailable [phone] Robin Zepeda MD Unavailable [phone] Danna Cardenas PA-C Unavailable +[phone] Felicita Desai RN Unavailable Unavailab Arthur Rios Unavailable +[phone] Randy Maradiaga DO Unavailable + Tete Wang MD Unavailable [phone] Dahlia Joyce MD Unavailable [phone] Lisa Zambrano MD Unavailable [phone] Tete Wang MD Unavailable [phone] Any Joiner MD Unavailable +[phone] Bindu Bueno OD Unavailable [phone] Aftab Finn MD Unavailable Randy Maradiaga DO Primary Care Prov ider Aftab Finn MD Unavailable LesaAndraSelena CHW Unavailable [phone] Denise Woodson APRN SOLAR PHOTOVOLTAIC DESIGNER Primary Care Provider Red De Los Santos PICC NURSE Unavailable [phone] Santa Menon PA-C Unavailable [phone] Alessandra Pereira RN Unavailable Encounter Details Date Type Department Care Team (Late st Contact Info) Description 07/18/2024 MyC Medical Advice [facility] [address] [place] [address] Denise Woodson APRN [facility] [address] [place] [address] Social History Tobacco Use Types [...] How often do you attend sikhism or yazdanism serv ices? Never 02/28/2024 Do [...] Answer Date Recorded PHQ-2 Score 4 07/16/2024 [facility] [...] on file Legal Sex Female 4:05 AM TEXTILE TECHNICAL OFFICER Gender Identity Not on file Sexual [...] to provider as FYI. Qing Copeland Lead Solid Fiber Paster Operator [facility] documented in this encounter Plan of Treatment Upcoming Encounters Date Type Department Care Team (Late st Contact Info) Description 07/09/2025 11:00 AM CDT Virtual Visit [address] [address] Bindu Bueno, OD 909 [place], [place] 890515 Rubi [place], OT [place] [address] 615867 07/15/2025 2:30 PM CDT Office Visit [address] [address] Denise Woodson FLIGHT ENGINEER HELICOPTER SOLAR PHOTOVOLTAIC DESIGNER [address] [place] [address] 07/16/2025 11:00 AM CDT Virtual Visit [facility] 150 [place] [phone] Bindu Bueno, OD [address] [place] [address] 318785 Rubi [place], OT [address] 149147 07/23/2025 11:00 AM TEXTILE TECHNICAL OFFICER Virtual Visit [address] [phone] Bindu Bueno, OD [address] [place] [address] Rubi [place], OT [address] 595887 08/03/2025 11:00 AM TEXTILE TECHNICAL OFFICER Virtual Visit [address] [phone] Bindu Bueno, OD 909 [place], [place] 367415 Rubi [place], OT [address] [address] 08/03/2025 4:30 PM TEXTILE TECHNICAL OFFICER Virtual Visit [facility] and [address] [address] Any Joiner MD 420 [facility] 276 [place] [address] 08/17/2025 12:45 PM TEXTILE TECHNICAL OFFICER Virtual Visit [facility] Rehabilitation Services [address] [phone] Bindu Bueno, OD [address] [place] [address] 426785 Rubi [place], OT [address] 080177 10/04/2025 10:15 AM TEXTILE TECHNICAL OFFICER Virtual Visit [facility] Physical Medicine and Rehabilitation Clinic [address] [phone] Santa Menon, PA-C [address] [place] [address] 682365 01/19/2026 11:30 AM CDT Office Visit [facility] Neurology Clinic [address] [phone] Randy Maradiaga, [address] [place] [address] 182635 documented as of this encounter Visit Diagnoses Not on filedocumented in this encounter Additional Health Concerns Infection Onset Date Last Indicated Resolved Time Rule Out COVID-19 09/13/2024 09/13/2024 09/13/2024 12:31 PM TEXTILE TECHNICAL OFFICER Rule Out COVID-19 11/14/2024 11/14/2024 11/14/2024 8:25 PM TEXTILE TECHNICAL OFFICER Assessment Noted Time PHQ-9 Depression Total Score: 14 07/15/2 024 11:46 AM CDT documented as of this encounter Care Teams Tool Filer Hand Relationship Specialty Start Date End Date Winston Villatoro OD [facility] [address] [place] [address] PCP - Ophthalmology Ophthalmology 02/11/13 Denise Woodson APRN SOLAR PHOTOVOLTAIC DESIGNER [address] [place] [address] PCP - General Family Practice 09/21/20 04/07/25 Randy Maradiaga DO 909 [place], [place] 482775 PCP - General Neurology 04/08/25 05/25/25 Denise Woodson APRN SOLAR PHOTOVOLTAIC DESIGNER [address] [place] [address] PCP - General Family Practice 05/26/25 Denise Woodson APRN SOLAR PHOTOVOLTAIC DESIGNER [address] [place] [address] Assigned PCP 07/17/20 Usha Simon APRN SOLAR PHOTOVOLTAIC DESIGNER 909 [facility] [id number] [place] [address] Nurse Practitioner Neurological Surgery 01/24/24 Dangelo Salinas MD [address] [place] [address] Neurology 01/27/24 Anastasia Stearns, RN Lead Functional Director 02/06/24 12/17/24 Germaine Aleman, W Community Health Worker Primary Care - CC 02/18/2412/17/24 Joya Lira [facility] [address] [place] [address] Pharmacist Pharmacist 05/25/24 [facility] [address] [place] [address] Assigned MTM Pharmacist 06/08/24 Fabi Coates MD [address] [place] [address] 75 [place] [address] Genetics, Clinical 06/18/24 Robin Zepeda MD 909 [facility]J [place] [address] Assigned Neuroscience Provider 07/08/24 08/07/24 Danna Cardenas PA-C [facility] [place] [address] Assigned Heart and Vascular Provider 07/08/24 12/05/24 Felicita Desai, RN Lead Functional Director 07/14/24 07/28/24 Arthur Salas, [facility] [address] [place] [address] Assigned Behavioral Health Provider 08/08/24 Randy Maradiaga DO 909 [place], [place] 938955 Assigned Neuroscience Provider 08/08/24 Tete Wang MD 2450 [place], [place] 369874 Genetics, Clinical 10/30/24 Dahlia Joyce MD 909 [place] [address] Radiology Neuroradiology 11/17/24 Lisa Zambrano MD 6405 [facility] [address] [place], [place] 206515 Assigned Heart and Vascular Provider 12/06/24 Tete Wang MD 2450 [place], [place] 002974 Assigned Pediatric Specialist Provider 01/06/25 Any Joiner MD [address] [place] [address] 276 [place], [place] 938605 Assigned Pulmonology Provider 02/05/25 Myles Bindu, OD [address] [place] [address] 242165 Assigned Surgical Provider 03/08/25 Aftab Finn MD [address] 362560 Dermatology 03/17/25 Aftab Finn MD [address] [place] [address] Assigned Dermatology Provider 04/07/25 Selena Mcfadden, W Community Health Worker 05/25/2505/26 Red De Los Santos LSW Lead Functional Director Primary Care - CC 05/26/25 Santa Menon PA-C 946 [place] [address] Physician Inter Fold Roll Cutter Physical Medicine and Rehabilitation 02/25/25 Alessandra Pereira RN Specialty Functional Director Neurological Surgery 06/02/25 documented as of this encounter
--- OUTSIDE RECORDS SUMMARY | 2025-07-07 18:22 | XMS_ITS | Encounter Summary ---
Author Organization [place] Address [address] [place] [address] Care Team Providers Care Grooming Salon Manager Name Role Phone Yung Madrigal MD Unavailable Unavailable Winston Villatoro OD Unavailable [phone] Denise Woodson APRN BLENDING KETTLE TENDER Unavailable [phone] Denise Woodson APRN BLENDING KETTLE TENDER Primary Care Provider Usha Simon APRN BLENDING KETTLE TENDER Unavailable Dangelo Salinas MD Unavailable Usha Simon APRN BLENDING KETTLE TENDER Unavailable [phone] Anastasia Stearns RN Unavailable +[phone] Germaine Aleman CHW Unavailable +[phone] Robin Zepeda MD Unavailable Lisa Zambrano MD Unavailable Raul Hoyos MD Unavailable Joya Lira [facility] Unavailable [phone] Joya Lira RPJoleen Unavailable Fabi Coates MD Unavailable [phone] Robin Zepeda MD Unavailable Danna Cardenas PA-C Unavailable +[phone] Felicita Desai RN Unavailable Unavailab le Arthur Salas DIRECTOR HEMATOLOGY Unavailable +[phone] Randy Maradiaga DO Unavailable + Tete Wang MD Unavailable [phone] Dahlia Joyce MD Unavailable [phone] Lisa Zambrano MD Unavailable + [phone] Tete Wang MD Unavailable +[phone] Any Joiner MD Unavailable +[phone] BuenoBindu OD Unavailable +[phone] Aftab Finn MD Unavailable Randy Maradiaga DO Primary Care Prov ider Aftab Finn MD Unavailable Selena Mcfadden CHW Unavailable [phone] Denise Woodson APRN BLENDING KETTLE TENDER Primary Care Provider Red De Los Santos FOOD BROKER Unavailable [phone] Santa Menon PA-C Unavailable [phone] Alessandra Pereira RN Unavailable Reason for Visit * Reason Comments Medication Refill Encounter Details Date Type Department Care Team (Late st Contact Info) Description 06/11/[address] [place] [address] Denise Woodson APRN BLENDING KETTLE TENDER [address] [facility] [place] [address] Medication Refill Social History Tobacco Use [...] on file Legal Sex Female 4:05 AM INFECTIOUS DISEASES PHYSICIAN Gender Identity Not on file Sexual Orientation [...] Description 07/09/2025 11:00 AM CDT Virtual Visit [facility] 150 [place] [phone] Bindu Bueno, OD 909 [place], [place] [phone] Rubi Johnson, OT [address] 382557 07/15/2025 2:30 PM CDT Office Visit [facility] [address] [place] [address] Denise Woodson, BARRERA BLENDING KETTLE TENDER [address] [place], [place] 8984868 07/16/2025 11:00 AM CDT Virtual Visit [facility] 150 [place] [phone] Bindu Bueno, OD 909 [place], [place] 470555 Rubi Johnson, OT [address] 712827 07/23/2025 11:00 AM INFECTIOUS DISEASES PHYSICIAN Virtual Visit [address] [phone] Bindu Bueno, OD 909 [place] [address] Rubi Johnson, OT [facility] 150 [place] [address] 08/03/2025 11:00 AM INFECTIOUS DISEASES PHYSICIAN Virtual Visit [facility] 150 [place] [phone] Bindu Bueno, OD 909 [place], [place] 718025 Rubi Johnson, OT [address] [address] 08/03/2025 4:30 PM INFECTIOUS DISEASES PHYSICIAN Virtual Visit [facility] [address] [phone] Any Joiner MD [address] [place] [address] 306625 08/17/2025 12:45 PM INFECTIOUS DISEASES PHYSICIAN Virtual Visit [address] [phone] Bindu Bueno, OD 909 [place] [address] Rubi Johnson, OT [address] 384137 10/04/2025 10:15 AM INFECTIOUS DISEASES PHYSICIAN Virtual Visit [facility] [address] 3rd [place] [address] Santa Menon PA-C [address] [place] [address] 01/19/2026 11:30 AM CDT Office Visit [facility] Neurology [facility] [place] 3[address] [facility] 3rd [place] [address] Randy Maradiaga DO [address] [place] [address] 455635 documented as of this encounter Visit Diagnoses Diagnosis Insomnia, unspecified type documented in this encounter Additional Health Concerns Infection Onset Date Last Indicated Resolved Time Rule Out COVID-19 09/13/2024 09/13/2024 09/13/2024 12:31 PM INFECTIOUS DISEASES PHYSICIAN Rule Out COVID-19 11/14/2024 11/14/2024 11/14/2024 8:25 PM INFECTIOUS DISEASES PHYSICIAN Assessment Noted Time PHQ-9 Depression Total Score: 0 01/05/20 9:31 AM CDT documented as of this encounter Care Teams Grooming Salon Manager Relationship Specialty Start Date End Date Yung Madrigal MD RETIRED PCP - Orthopaedics Orthopedics 08/26/12 01/20/24 Winston Villatoro OD [facility] 701 [facility] 95 [place] [address] PCP - Ophthalmology Ophthalmology 02/11/13 Denise Woodson APRN BLENDING KETTLE TENDER [address] [place] [address] PCP - General Family Practice 09/21/20 04/07/25 Randy Maradiaga DO [address] [place] [address] PCP - General Neurology 04/08/25 05/25/25 Denise Woodson APRN BLENDING KETTLE TENDER [address] [place] [address] PCP - General Family Practice 05/26/25 Denise Woodson APRN BLENDING KETTLE TENDER [address] [place] [address] Assigned PCP 07/17/20 Usha Simon APRN BLENDING KETTLE TENDER [address] 989005 Nurse Practitioner Neurological Surgery 01/24/24 Dangelo Salinas MD [address] [place] [address] Neurology 01/27/24 Usha Simon APRN BLENDING KETTLE TENDER [address] 612595 Assigned Neuroscience Provider 02/06/24 03/07/24 Anastasia Stearns, RN Lead Shop Supervisor 02/06/24 12/17/24 Germaine Aleman, W Community Health Worker Primary Care - CC 02/18/2412/17/24 Robin Zepeda MD [address] 620465 Assigned Neuroscience Provider 03/08/24 05/07/24 Lisa Zambrano MD [address] [place] 418345 Assigned Heart and Vascular Provider 05/08/24 07/07/24 Raul Hoyos MD 909 [facility]121[address]J [place] [address] Assigned Neuroscience Provider 05/08/24 07/07/24 Joya Lira [facility] [address] [place], [place] [address] [place] [address] Pharmacist Pharmacist 05/25/24 Joya Lira [facility] [address] [place] [address] Assigned MTM Pharmacist 06/08/24 Fabi Coates MD [address] [place] [address] 75 [place] [address] Genetics, Clinical 06/18/24 Robin Zepeda MD [address] [place] [address] [address] Assigned Neuroscience Provider 07/08/24 08/07/24 Danna Cardenas PA-C [address] [place] [address] Assigned Heart and Vascular Provider 07/08/24 12/05/24 Felicita Desai, GEMA Lead Shop Supervisor 07/14/24 07/28/24 Arthur Salas DIRECTOR HEMATOLOGY [address] [address] Assigned Behavioral Health Provider 08/08/24 Randy Maradiaga DO [address] [place] [address] Assigned Neuroscience Provider 08/08/24 Tete Wang MD [address] [place] [address] 8[address] Genetics, Clinical 10/30/24 Dahlia Joyce MD [address] [place] [address] Radiology Neuroradiology 11/17/24 Lisa Zambrano MD [address] [place] [address] 659095 Assigned Heart and Vascular Provider 12/06/24 Tete Wang MD [address] [place] [address] 15328 Assigned Pediatric Specialist Provider 01/06/25 Any Joiner MD [address] [place] [address] 693335 Assigned Pulmonology Provider 02/05/25 Bindu Bueno OD [address] [place] [address] 972615 Assigned Surgical Provider 03/08/25 Aftab Finn MD [address] 335410 Dermatology 03/17/25 Aftab Finn MD [address] [place] [address] 446935 Assigned Dermatology Provider 04/07/25 Selena Mcfadden, W Community Health Worker 05/25/2505/26 Red De Los Santos LSW Lead Shop Supervisor Primary Care - CC 05/26/25 Santa Menon PANilesC [address] [place] [address] Physician [place] [employer] Group Leader Physical Medicine and Rehabilitation 02/25/25 Alessandra Pereira, RN Specialty Shop Supervisor Neurological Surgery 06/02/25 documented as of this encounter
--- OUTSIDE RECORDS SUMMARY | 2025-07-07 18:22 | XMS_ITS | Encounter Summary ---
Author Organization [place] Address [address] [place] [address] Care Team Providers Care Membership Counselor Name Role Phone Shauna Winston Se OD Unavailable [phone] Denise Woodson APRN PLUSH BRUSHER Unavailable [phone] Denise Woodson APRN PLUSH BRUSHER Primary Care Provider Usha Simon APRN PLUSH BRUSHER Unavailable Dangelo Salinas MD Unavailable Usha Simon APRN PLUSH BRUSHER Unavailable Anastasia Stearns RN Unavailable Germaine Aleman [facility] Unavailable [phone] Robin Zepeda MD Unavailable Lisa Zambrano MD Unavailable Raul Hoyos MD Unavailable Joya Lira [facility] Unavailable [phone] Joya Lira Joleen Unavailable +[phone] Fabi Coates MD Unavailable [phone] Robin Zepeda MD Unavailable Danna Cardenas PA-C Unavailable [phone] Felicita Desai RN Unavailable Unavailab Arthur Rios Unavailable +[phone] Randy Maradiaga DO Unavailable + Tete Wang MD Unavailable +[phone] Dahlia Joyce MD Unavailable [phone] Lisa Zambrano MD Unavailable + [phone] Tete Wang MD Unavailable [phone] Any Joiner MD Unavailable [phone] BuenoBindu flores OD Unavailable [phone] Aftab Finn MD Unavailable Randy Maradiaga DO Primary Care Prov ider Aftab Finn MD Unavailable Selena Mcfadden CHW Unavailable [phone] Denise Woodson APRN PLUSH BRUSHER Primary Care Provider Filiberto Red ENTREPRENEURSHIP PROGRAM DIRECTOR Unavailable [phone] Santa Menon PANilesC Unavailable [phone] Alessandra Pereira RN Unavailable Encounter Details Date Type Department Care Team (Late st Contact Info) Description 01/29/2024 [facility] [address] [phone] Danya Restrepo, MEDICAL ACCOUNTS RECEIVABLE SPECIALIST Social History Tobacco Use Types Packs/Day [...] file Legal Sex Female 4:05 AM MANAGER DIVERSITY Gender Identity Not on file Sexual Orientation [...] Description 07/09/2025 11:00 AM CDT Virtual Visit [address] [phone] Bindu Bueno, OD 909 [place], [place] 706755 Rubi Johnson, OT [address] 892817 07/15/2025 2:30 PM CDT Office Visit [facility] [address] [place] [phone] Denise Woodson APRN [facility] [address] [place], [place] 5749668 07/16/2025 11:00 AM CDT Virtual Visit [address] [phone] Bindu Bueno, OD 909 [place], [place] 821745 Rubi Johnson, OT [address] [address] 07/23/2025 11:00 AM MANAGER DIVERSITY Virtual Visit [address] [phone] BuenoBindu flores, OD 909 [place], [place] 271455 Rubi Johnson, OT [address] [address] 08/03/2025 11:00 AM MANAGER DIVERSITY Virtual Visit [address] [phone] Bindu Bueno, OD 909 [place], [place] 424045 Rubi Johnson, OT [address] [address] 08/03/2025 4:30 PM MANAGER DIVERSITY Virtual Visit [facility] [address] [phone] Any Joiner MD [address] [place] [address] 085405 08/17/2025 12:45 PM MANAGER DIVERSITY Virtual Visit [address] [phone] Bindu Bueno, OD 9 [place], [place] 818775 Rubi Johnson, OT [address] [address] 10/04/2025 10:15 AM MANAGER DIVERSITY Virtual Visit [facility] Physical Medicine and Rehabilitation Clinic [address] [phone] Santa Menon PANilesC [address] [place] [address] 545775 01/19/2026 11:30 AM CDT Office Visit [facility] Neurology Clinic [place] 909 [facility] 3rd [place] [address] Randy Maradiaga DO [address] [place] [address] documented as of this encounter Visit Diagnoses Not on filedocumented in this encounter Additional Health Concerns Infection Onset Date Last Indicated Resolved Time Rule Out COVID-19 09/13/2024 09/13/2024 09/13/2024 12:31 PM MANAGER DIVERSITY Rule Out COVID-19 11/14/2024 11/14/2024 11/14/2024 8:25 PM MANAGER DIVERSITY Assessment Noted Time PHQ-9 Depression Total Score: 0 06/23/20 21 4:11 PM CDT documented as of this encounter Care Teams Membership Counselor Relationship Specialty Start Date End Date Winston Villatoro OD [facility] 701 [facility] [address] [place] [address] PCP - Ophthalmology Ophthalmology 02/11/13 Denise Woodson APRN PLUSH BRUSHER [address] [place] [address] PCP - General Family Practice 09/21/20 04/07/25 Randy Maradiaga DO [address] [place] [address] PCP - General Neurology 04/08/25 05/25/25 Denise Woodson APRN PLUSH BRUSHER [address] [place] [address] PCP - General Family Practice 05/26/25 Denise Woodson APRN PLUSH BRUSHER [address] [place] [address] Assigned PCP 07/17/20 Usha Simon APRN PLUSH BRUSHER [address] [address] Nurse Practitioner Neurological Surgery 01/24/24 Dangelo Salinas MD [address] [place] [address] Neurology 01/27/24 Usha Simon APRN PLUSH BRUSHER [address] [address] Assigned Neuroscience Provider 02/06/24 03/07/24 Anastasia Stearns, RN Lead Data Analytics Chief Scientist 02/06/24 12/17/24 Germaine Aleman, W Community Health Worker Primary Care - CC 02/18/2412/17/24 Robin Zepeda MD [address] [address] Assigned Neuroscience Provider 03/08/24 05/07/24 Lisa Zambrano MD [address] [place] [address] Assigned Heart and Vascular Provider 05/08/24 07/07/24 Raul Hoyos MD [address] [address] Assigned Neuroscience Provider 05/08/24 07/07/24 Joya Lira [facility] [address] [place] [address] Pharmacist Pharmacist 05/25/24 Joya Lira [facility] [address] [place] [address] Assigned MTM Pharmacist 06/08/24 Fabi Coaets MD [address] [place] [address] 75 [place], [place] 017095 Genetics, Clinical 06/18/24 Robin Zepeda MD [address] [place], [place] [address] [place], [place] 917375 Assigned Neuroscience Provider 07/08/24 08/07/24 Danna Cardenas PA-C [address] [place] [address] 511025 Assigned Heart and Vascular Provider 07/08/24 12/05/24 Felicita Desai RN Lead Data Analytics Chief Scientist 07/14/24 07/28/24 Arthur Salas [facility] [address] [address] Assigned Behavioral Health Provider 08/08/24 Randy Maradiaga DO [address] [place] [address] 991255 Assigned Neuroscience Provider 08/08/24 Tete Wang MD 2450 [place], [place] 582154 Genetics, Clinical 10/30/24 Dahlia Joyce MD [address] [place] [address] 262175 Radiology Neuroradiology 11/17/24 [place] [address] [place] [address] [address] [place], [place] 330805 Assigned Heart and Vascular Provider 12/06/24 [place] [address] [place] [address] 167294 Assigned Pediatric Specialist Provider 01/06/25 Any Joiner MD [address] [place] [address] [id number] Assigned Pulmonology Provider 02/05/25 Bindu Bueno OD [address] [place] [address] 40954455 Assigned Surgical Provider 03/08/25 Aftab Finn MD [address] 811590 Dermatology 03/17/25 Aftab Finn MD [address] [place] [address] 570375 Assigned Dermatology Provider 04/07/25 Selena Mcfadden, W Community Health Worker 05/25/2505/26 Red De Los Santos LSW Lead Data Analytics Chief Scientist Primary Care - CC 05/26/25 Santa Menon PA-C 909 [place] [address] Physician Marine Habitat Resource Specialist Physical Medicine and Rehabilitation 02/25/25 Alessandra Pereira RN Specialty Data Analytics Chief Scientist Neurological Surgery 06/02/25 documented as of this encounter
--- OUTSIDE RECORDS SUMMARY | 2025-07-07 18:23 | XMS_ITS | Encounter Summary ---
Author Organization [place] Address [address] [place] [address] Care Team Providers Care Metal Cutter Name Role Phone Winston Villatoro OD Unavailable [phone] Denise Woodson APRN NURSE MIDWIFE Unavailable [phone] Denise Woodson APRN NURSE MIDWIFE Primary Care Provider Usha Simon APRN NURSE MIDWIFE Unavailable + [phone] Dangelo Salinas MD Unavailable Joya Lira RP Unavailable [phone] Joya Lira [facility] Unavailable +[phone] Fabi Coates MD Unavailable [phone] Sinyigaya, Specmadi AIR HOLE DRILLER Unavailable [phone] Randy Maradiaga DO Unavailable + Tete Wang MD Unavailable +[phone] Dahlia Joyce MD Unavailable [phone] Lisa Zambrano MD Unavailable + [phone] Tete Wang MD Unavailable +[phone] Any Joiner MD Unavailable +[phone] Bindu Bueno OD Unavailable [phone] Aftab Finn MD Unavailable Randy Maradiaga DO Primary Care Prov ider Aftab Finn MD Unavailable Selena Mcfadden CHW Unavailable [phone] Denise Woodson APRN NURSE MIDWIFE Primary Care Provider Red De Los Santos COOKER [facility]A Unavailable [phone] Santa Menon PA-C Unavailable [phone] Alessandra Pereira RN Unavailable Encounter Details Date Type Department Care Team (Late st Contact Info) Description 12/31/2024 [facility] [place] [facility] [address] [place] [address] Maria Eugenia [place] Social History Tobacco Use Types Packs/Day Years [...] How often do you attend taoism or advent serv ices? Never 09/16/2024 Do [...] Answer Date Recorded PHQ-2 Score 2 12/31/2024 [facility] [place] of Occupat [facility] - Occupational [...] file Legal Sex Female 4:05 AM CONCRETE STONE FABRICATING SUPERVISOR Gender Identity Not on file Sexual [...] Description 07/09/2025 11:00 AM CDT Virtual Visit [address] [phone] Bindu Bueno, OD 909 [place], [place] 474145 Rubi Johnson, OT [facility] [address] 048567 07/15/2025 2:30 PM CDT Office Visit [facility] [address] [place] [address] Denise Woodson APRN NURSE MIDWIFE [address] [place], [place] 0093968 07/16/2025 11:00 AM CDT Virtual Visit [address] [phone] Bindu Bueno, OD 909 [place], [place] 855295 Rubi Johnson, OT [address] 014247 07/23/2025 11:00 AM CONCRETE STONE FABRICATING SUPERVISOR Virtual Visit [address] [place] [phone] Bindu Bueno, OD 909 [place] [address] Rubi Johnson, OT [facility] 150 [place] [address] 08/03/2025 11:00 AM CONCRETE STONE FABRICATING SUPERVISOR [facility] 150 [place] [address] Bindu Bueno, OD 909 [place] [address] Rubi Johnson, OT [address] [address] 08/03/2025 4:30 PM CONCRETE STONE FABRICATING SUPERVISOR Virtual Visit [facility] [address] [phone] Any Joiner MD [address] [place] [address] 08/17/2025 12:45 PM CONCRETE STONE FABRICATING SUPERVISOR Virtual Visit [facility] 150 [place] [phone] Bindu Bueno, OD 909 [place], [place] 770945 Rubi Johnson, OT [address] [address] 10/04/2025 10:15 AM CONCRETE STONE FABRICATING SUPERVISOR Virtual Visit [facility] Physical Medicine and Rehabilitation Clinic [place] [address] [phone] Santa Menon PA-C [address] [place] [address] 01/19/2026 11:30 AM CDT Office [facility] Neurology Clinic [address] [phone] Randy Maradiaga DO [address] [place] [address] documented as of this encounter Visit Diagnoses Not on filedocumented in this encounter Additional Health Concerns Assessment Noted Time PHQ-9 Depression Total Score: 9 12/18/19 25 9:40 AM CDT documented as of this encounter Care Teams Metal Cutter Relationship Specialty Start Date End Date Winston Villatoro OD [facility] [place] 701 [facility] [address] [place] [address] PCP - Ophthalmology Ophthalmology 02/11/13 Denise Woodson APRN NURSE MIDWIFE [address] [place] [place] [address] PCP - General Family Practice 09/21/20 04/07/25 Randy Maradiaga DO [address] [place] [address] PCP - General Neurology 04/08/25 05/25/25 Denise Woodson APRN NURSE MIDWIFE [address] [place] [address] PCP - General Family Practice 05/26/25 Denise Woodson APRN NURSE MIDWIFE [address] [place] [address] Assigned PCP 07/17/20 Uhsa Simon APRN NURSE MIDWIFE 909 [facility] [id number] [place] [address] Nurse Practitioner Neurological Surgery 01/24/24 Dangelo Salinas MD [address] [place] [address] Neurology 01/27/24 Joya Lira RPH [address] [place] [address] Pharmacist Pharmacist 05/25/24 Joya Lira RPH [address] [place] [address] Assigned MTM Pharmacist 06/08/24 Fabi Coates MD 420 [facility] 75 [place], [place] 459255 Genetics, Clinical 06/18/24 Arthur Salas, [facility] [address] [place] [address] Assigned Behavioral Health Provider 08/08/24 Randy Maradiaga DO 909 [place] [address] Assigned Neuroscience Provider 08/08/24 Tete Wang MD 2450 [facility] [place] [address] Genetics, Clinical 10/30/24 Dahlia Joyce MD 909 [place] [address] Radiology Neuroradiology 11/17/24 Lisa Zambrano MD 6405 [facility] [address] [place], [place] 376615 Assigned Heart and Vascular Provider 12/06/24 Tete Wang MD 2450 [place], [place] 454734 Assigned Pediatric Specialist Provider 01/06/25 Any Joiner MD [address] [place] [address] 290835 Assigned Pulmonology Provider 02/05/25 Myles Bindu, OD [address] [place] [address] 929115 Assigned Surgical Provider 03/08/25 Aftab Finn MD [address] 880780 Dermatology 03/17/25 Aftab Finn MD [address] [place] [address] Assigned Dermatology Provider 04/07/25 Selena Mcfadden, W Community Health Worker 05/25/2505/26 Red De Los Santos LSW Lead Prepress Proofer Primary Care - CC 05/26/25 Santa Menon, PA-C 909 [place] [address] Physician Consultative Sales Associate Physical Medicine and Rehabilitation 02/25/25 Alessandra Pereira RN Specialty Prepress Proofer Neurological Surgery 06/02/25 documented as of this encounter
--- OUTSIDE RECORDS SUMMARY | 2025-07-07 18:23 | XMS_ITS | Encounter Summary ---
Author Organization [place] Address [address] [place] [address] Care Team Providers Care Advanced Manufacturing Consultant Name Role Phone Winston Villatoro OD Unavailable [phone] Denise Woodson APRN DIVER'S TENDER Unavailable +[phone] Denise Woodson APRN DIVER'S TENDER Primary Care Provider Usha Simon APRN DIVER'S TENDER Unavailable + [phone] Dangelo Slainas MD Unavailable Anastasia Stearns RN Unavailable +[phone] Germaine Aleman CHW Unavailable +[phone] Joya Lira RP Unavailable +[phone] Joya Lira [facility] Unavailable +[phone] Fabi Coates MD Unavailable [phone] SinArthur forbes [employer] MA[employer]ED [employer] SALES EX[employer] Unavailable +[phone] Randy Maradiaga DO Unavailable + Tete Wang MD Unavailable +[phone] Dahlia Joyce MD Unavailable +[phone] Lisa Zambrano MD Unavailable + [phone] Tete Wang MD Unavailable +[phone] Any Joiner MD Unavailable Bindu Bueno OD Unavailable +[phone] Aftab Finn MD Unavailable Randy Maradiaga DO Primary Care Prov ider Aftab Finn MD Unavailable Selena Mcfadden CHW Unavailable [phone] Denise Woodson APRN DIVER'S TENDER Primary Care Provider Red De Los Santos SOLAR DESIGN ENGINEER Unavailable [phone] Santa Menon PA-C Unavailable +[phone] Alessandra Pereira RN Unavailable Encounter Details Date Type Department Care Team (Late st Contact Info) Description 12/16/2024 My[facility] Medical Advice [address] [address] Anamika Johns Social History Tobacco Use [...] How often do you attend islam or sikh serv ices? Never 09/16/2024 Do [...] Answer Date Recorded PHQ-2 Score 3 12/17/2024 [facility] - Occupational Stress Questionnaire Answer Date [...] file Legal Sex Female 4:05 AM ANIMAL RESCUER Gender Identity Not on file Sexual Orientation [...] Description 07/09/2025 11:00 AM CDT Virtual Visit [address] [phone] Bindu Bueno, OD 909 [place], [place] 6[address] Rubi Johnson, OT [address] 864777 07/15/2025 2:30 PM CDT Office Visit [facility] [address] [place] [address] Denise Woodson APRN DIVER'S TENDER [address] [place] [address] 07/16/2025 11:00 AM CDT Virtual Visit [address] [phone] Bindu Bueno, OD 909 [place], [place] [address] Rubi Johnson, OT [address] 271357 07/23/2025 11:00 AM ANIMAL RESCUER Virtual Visit [address] [phone] Bindu Bueno, OD 909 [place] [address] Rubi Johnson, OT [address] [address] 08/03/2025 11:00 AM ANIMAL RESCUER Virtual Visit [address] [phone] Bindu Bueno, OD [address] [place] [address] 813595 Rubi Johnson, OT [address] [address] 08/03/2025 4:30 PM ANIMAL RESCUER Virtual Visit [facility] [address] [phone] Any Joiner MD [address] [place] [address] 030485 08/17/2025 12:45 PM ANIMAL RESCUER Virtual Visit [address] [phone] Bindu Bueno, OD 909 [place] [address] Rubi Johnson, OT [address] 819807 10/04/2025 10:15 AM ANIMAL RESCUER Virtual Visit [facility] [address] [address] Santa Menon PA-C [address] [place] [address] 023805 01/19/2026 11:30 AM CDT Office Visit [facility] [address] [phone] Randy Maradiaga DO [address] [place] [address] 731405 documented as of this encounter Visit Diagnoses Not on filedocumented in this encounter Additional Health Concerns Assessment Noted Time PHQ-9 Depression Total Score: 0 09/18/19 12:46 PM ANIMAL RESCUER documented as of this encounter Care Teams Advanced Manufacturing Consultant Relationship Specialty Start Date End Date Winston Villatoro OD [facility] [address] [facility] [address] [place] [address] PCP - Ophthalmology Ophthalmology 02/11/13 Denise Woodson APRN DIVER'S TENDER [address] [place] [address] PCP - General Family Practice 09/21/20 04/07/25 Randy Maradiaga DO [address] [place] [address] PCP - General Neurology 04/08/25 05/25/25 Denise Woodson APRN DIVER'S TENDER [address] [place] [address] PCP - General Family Practice 05/26/25 Denise Woodson APRN DIVER'S TENDER [address] [place] [address] Assigned PCP 07/17/20 Usha Simon APRN DIVER'S TENDER 909 [facility] [id number] [place] [address] Nurse Practitioner Neurological Surgery 01/24/24 Dangelo Salinas MD [address] [place], [place] [phone] Neurology 01/27/24 Anastasia Stearns, RN Lead Out And Out Cigar Maker Hand 02/06/24 12/17/24 Germaine Aleman, W Community Health Worker Primary Care - CC 02/18/2412/17/24 oJya Lira [facility] [address] [place], [place] [phone] Pharmacist Pharmacist 05/25/24 Joya Lira [facility] [address] [place], [place] 96[address] Assigned MTM Pharmacist 06/08/24 Fabi Coates MD 420 [facility] 75 [place], [place] 05[address]25 Genetics, Clinical 06/18/24 Arthur Salas, [facility] [address] [place] [address] Assigned Behavioral Health Provider 08/08/24 Randy Maradiaga DO 909 [place], [place] 617905 Assigned Neuroscience Provider 08/08/24 Tete Wang MD [address] [place] [address] Genetics, Clinical 10/30/24 Dahlia Joyce MD [address] [place] [address] Radiology Neuroradiology 11/17/24 [place] [address] [place], [place] [address] [place], [place] 565[address] Assigned Heart and Vascular Provider 12/06/24 Tete Wang MD [address] [place] [address] 986534 Assigned Pediatric Specialist Provider 01/06/25 Any Joiner MD [address] [place] [address] 276 [place], [place] 599215 Assigned Pulmonology Provider 02/05/25 Bindu Bueno OD [address] [place] [address]87 Assigned Surgical Provider 03/08/25 Aftab Finn MD [address] [address] Dermatology 03/17/25 Aftab Finn MD [address] [place] [address] Assigned Dermatology Provider 04/07/25 Selena Mcfadden, W Community Health Worker 05/25/2505/26 Red De Los Santos LSW Lead Out And Out Cigar Maker Hand Primary Care - CC 05/26/25 Santa Menon, PA-C [address] [place] [address] Physician Traffic Operations Engineer Physical Medicine and Rehabilitation 02/25/25 Alessandra Pereira, RN Specialty Out And Out Cigar Maker Hand Neurological Surgery 06/02/25 documented as of this encounter
--- OUTSIDE RECORDS SUMMARY | 2025-07-07 18:23 | XMS_ITS | Encounter Summary ---
Author Organization [place] Address [address] [place] [address] Care Team Providers Care Epic Radiant Analyst Name Role Phone Winston Villatoro Se OD Unavailable [phone] Denise Woodson APRN COMMISSIONING SPECIALIST Unavailable [phone] Denise Woodson APRN COMMISSIONING SPECIALIST Primary Care Provider Usha Simon APRN COMMISSIONING SPECIALIST Unavailable + [phone] Dangelo Salinas MD Unavailable Anastasia Stearns RN Unavailable +[phone] Germaine Aleman CHW Unavailable [phone] Lisa Zambrano MD Unavailable Raul Hoyos MD Unavailable [phone] Joya Lira [facility] Unavailable +[phone] Joya Lira [facility] Unavailable +[phone] Fabi Coates MD Unavailable [phone] Robin Zepeda MD Unavailable +[phone] Danna Cardenas PA-C Unavailable +[phone] Felicita Desai RN Unavailable Unavailab Arthur Rios HANDLE LATHE OPERATOR Unavailable +[phone] Randy Maradiaga DO Unavailable + Tete Wang MD Unavailable Dahlia Joyce MD Unavailable [phone] Lisa Zambrano MD Unavailable + [phone] Tete Wang MD Unavailable +[phone] Any Joiner MD Unavailable [phone] Myles Bindu OD Unavailable +[phone] Aftab Finn MD Unavailable Randy Maradiaga DO Primary Care Prov ider Aftab Finn MD Unavailable Selena Mcfadden CHW Unavailable [phone] Denise Woodson APRN COMMISSIONING SPECIALIST Primary Care Provider Red De Los Santos CAREER AND GUIDANCE COUNSELOR Unavailable [phone] Satna Menon PA-C Unavailable [phone] Alessandra Pereira RN Unavailable Encounter Details Date Type Department Care Team (Late st Contact Info) Description 05/15/2024 [facility] Denn[facility] [address] [address] Stacey Kelley, RN Social History [...] How often do you attend islam or tenriism serv ices? 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 on file Not on file Not on file Not on file Not on file Not on file Not on file documented as of this encounter Plan of Treatment Upcoming Encounters Date Type Department Care Team (Late st Contact Info) Description 07/09/2025 11:00 AM CDT Virtual Visit [address] [phone] Bindu Bueno, OD 909 [place] [address] Rubi Johnson, OT [address] [address] 07/15/2025 2:30 PM CDT Office Visit [facility] [address] [place] [address] Denise Woodson APRN [facility] [address] [place] [address] 07/16/2025 11:00 AM CDT Virtual Visit [address] [phone] Bindu Bueno, OD 909 [place] [address] Rubi Johnson, OT [facility] [address] [place] [address] 07/23/2025 11:00 AM CHILI POWDER MIXER Virtual Visit [facility] 150 [place] [phone] Bindu Bueno, OD 909 [place], [place] 927065 Rubi Johnson, OT [address] [address] 08/03/2025 11:00 AM CHILI POWDER MIXER [facility] 150 [place] [address] Bindu Bueno, OD 909 [place] [address] Rubi Johnson, OT [address] [address] 08/03/2025 4:30 PM CHILI POWDER MIXER Virtual Visit [facility] [address] [phone] Any Joiner MD [address] [place] [address] 08/17/2025 12:45 PM CHILI POWDER MIXER Virtual Visit [facility] 150 [place] [address] MylesBindu, OD [address] [place] [address] Rubi Johnson, OT [facility] 150 [place] [address] 10/04/2025 10:15 AM CHILI POWDER MIXER Virtual Visit [facility] [address] [phone] Santa Menon, PA-C [address] [place] [address] 46925455 01/19/2026 11:30 AM CDT Office Visit [facility] [address] [phone] Randy Maradiaga, [address] [place] [address] 724575 documented as of this encounter Visit Diagnoses Not on filedocumented in this encounter Additional Health Concerns Infection Onset Date Last Indicated Resolved Time Rule Out COVID-19 09/13/2024 09/13/2024 09/13/2024 12:31 PM CHILI POWDER MIXER Rule Out COVID-19 11/14/2024 11/14/2024 11/14/2024 8:25 PM CHILI POWDER MIXER Assessment Noted Time PHQ-9 Depression Total Score: 5 03/17/20 24 9:45 AM CDT documented as of this encounter Care Teams Epic Radiant Analyst Relationship Specialty Start Date End Date Winston Villatoro, OD [facility] [place] [address] [place] [address] PCP - Ophthalmology Ophthalmology 02/11/13 Denise Woodson APRN COMMISSIONING SPECIALIST [address] [place] [address] PCP - General Family Practice 09/21/20 04/07/25 Randy Maradiaga DO 909 [place] [address] PCP - General Neurology 04/08/25 05/25/25 Denise Woodson APRN COMMISSIONING SPECIALIST [address] [facility] [place] [address] PCP - General Family Practice 05/26/25 Denise Woodson APRN COMMISSIONING SPECIALIST [address] [place] [address] Assigned PCP 07/17/20 Usha Simon APRN COMMISSIONING SPECIALIST 9 [facility] [place] [id number] [place] [address] Nurse Practitioner Neurological Surgery 01/24/24 Dangelo Salinas MD 1650 [facility] 200 [place] [address] Neurology 01/27/24 Anastasia Stearns, RN Lead Salesperson Toy Trains [employer] Accessories 02/06/24 12/17/24 Germaine Aleman, W Community Health Worker Primary Care - CC 02/18/2412/17/24 Lisa Zambrano MD [address] [place] [address] Assigned Heart and Vascular Provider 05/08/24 07/07/24 Raul Hoyos MD 909 [facility] [place] [address] Assigned Neuroscience Provider 05/08/24 07/07/24 Joya Lira [facility] [address] [place] [address] Pharmacist Pharmacist 05/25/24 Joya Lira [facility] [address] [place] [address] Assigned MTM Pharmacist 06/08/24 Fabi Coates MD [address] [place] [address] 75 [place] [address] Genetics, Clinical 06/18/24 Robin Zepeda MD 9 [facility] [place] [address] Assigned Neuroscience Provider 07/08/24 08/07/24 Danna Cardenas PA-C 6405 [place] [address] Assigned Heart and Vascular Provider 07/08/24 12/05/24 Felicita Desai RN Lead Salesperson [employer] Access[employer] 07/14/24 07/28/24 Arthur Salas, [facility] [address] [place] [address] Assigned Behavioral Health Provider 08/08/24 Randy Maradiaga DO [address] [place] [address] Assigned Neuroscience Provider 08/08/24 Tete Wang MD [address] [place] [address] 418644 Genetics, Clinical 10/30/24 Dahlia Joyce MD [address] [place] [address] Radiology Neuroradiology 11/17/24 [place] [address] [place] [address] [address] [place], [place] 987465 Assigned Heart and Vascular Provider 12/06/24 Tete Wang MD [address] [place] [address] 169724 Assigned Pediatric Specialist Provider 01/06/25 Any Joiner MD [address] [place] [address] 276 [place], [place] 314395 Assigned Pulmonology Provider 02/05/25 Bindu Bueno OD [address] [place] [address] 606495 Assigned Surgical Provider 03/08/25 Aftab Finn MD [address] 003940 Dermatology 03/17/25 Aftab Finn MD 500 [place] [address] Assigned Dermatology Provider 04/07/25 Selena Mcfadden, [facility] Community Health Worker 05/25/2505/26 Red De Los Santos LSW Lead Salesperson [employer] Primary Care - CC 05/26/25 Santa Menon, PANilesC 909 [place] [address] Physician Guidance Secretary Physical Medicine and Rehabilitation 02/25/25 Alessandra Pereira, GEMA Specialty Salesperson [employer] Neurological Surgery 06/02/25 documented as of this encounter
--- OUTSIDE RECORDS SUMMARY | 2025-07-07 18:23 | XMS_ITS | Encounter Summary ---
Author Organization [place] Address [address] [place] [address] Care Team Providers Care Centrifugal Operator Name Role Phone Winston Villatoro OD Unavailable [phone] Denise Woodson APRN IT BUSINESS PROCESS ARCHITECT Unavailable +[phone] Denise Woodson APRN IT BUSINESS PROCESS ARCHITECT Primary Care Provider Usha Simon APRN IT BUSINESS PROCESS ARCHITECT Unavailable + [phone] Dangelo Salinas MD Unavailable Anastasia Stearns RN Unavailable [phone] Germaine Aleman CHW Unavailable [phone] Joya Lira RP Unavailable +[phone] Joya Lira [facility] Unavailable +[phone] Fabi Coates MD Unavailable [phone] SinArthur forbes SENIOR BRANCH MANAGER Unavailable +[phone] Randy Maradiaga DO Unavailable + Tete Wang MD Unavailable +[phone] Dahlia Joyce MD Unavailable [phone] Lisa Zambrano MD Unavailable + [phone] Tete Wang MD Unavailable +[phone] Any Joienr MD Unavailable Bindu Bueno OD Unavailable [phone] Aftab Finn MD Unavailable Randy Maradiaga DO Primary Care Prov ider Aftab Finn MD Unavailable Selena Mcfadden CHW Unavailable [phone] Denise Woodson APRN IT BUSINESS PROCESS ARCHITECT Primary Care Provider Red De Los Santos CALLISTHENICS INSTRUCTOR Unavailable [phone] Santa Menon PA-C Unavailable [phone] Alessandra Pereira RN Unavailable Encounter Details Date Type Department Care Team (Late st Contact Info) Description 12/09/2024 [facility] Clinic [address] [facility] [address] Tete Wang MD [address] [place] [address] Social History Tobacco Use Types Packs/Day [...] Never 09/16/2024 How often do you attend faith or buddhism serv ices? Never 09/16/2024 Do [...] Answer Date Recorded PHQ-2 Score 0 11/13/2024 [facility] of Occupat ional Health [...] Answer Date Recorded Do you have housing? 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 file Not on file Not on file Not on file Not on file Not on file Not on file documented as of this encounter Plan of Treatment Upcoming Encounters Date Type Department Care Team (Late st Contact Info) Description 07/09/2025 11:00 AM CDT Virtual Visit [address] [phone] Bindu Bueno, OD 909 [place], [place] 0[address]15 Rubi Johnson, OT [address] [address] 07/15/2025 2:30 PM CDT Office Visit [facility] [address] [place] [address] Denise Woodson APRN [facility] [address] [place], [place] 4046168 07/16/2025 11:00 AM CDT Virtual Visit [address] [phone] Bindu Bueno, OD 909 [place], [place] 572475 Rubi Johnson, OT [facility] 150 [place] [address] 07/23/2025 11:00 AM HADOOP ARCHITECT Virtual Visit [address] [phone] Bindu Bueno, OD 909 [place] [address] Rubi Johnson, OT [address] [address] 08/03/2025 11:00 AM HADOOP ARCHITECT Virtual Visit [address] [phone] Bindu Bueno, OD 909 [place], [place] 522075 Rubi Johnson, OT [address] [address] 08/03/2025 4:30 PM HADOOP ARCHITECT Virtual Visit [facility] [address] [address] Any Joiner MD [address] [place] [address] 485895 08/17/2025 12:45 PM HADOOP ARCHITECT Virtual Visit [address] [phone] Bindu Bueno, OD 909 [place], [place] 6458[address] Rubi Johnson, OT [facility] [address] [address] 10/04/2025 10:15 AM HADOOP ARCHITECT Virtual Visit [facility] [address] [phone] Santa Menon PAMani [address] [place] [address] 259125 01/19/2026 11:30 AM CDT Office [facility] Neurology Clinic [address] [phone] Randy Maradiaga DO [address] [place] [address] 293865 documented as of this encounter Visit Diagnoses Not on filedocumented in this encounter Additional Health Concerns Assessment Noted Time PHQ-9 Depression Total Score: 0 09/18/19 12:46 PM HADOOP ARCHITECT documented as of this encounter Care Teams Centrifugal Operator Relationship Specialty Start Date End Date Winston Villatoro OD [facility] [place] [address] [facility] [address] [place] [address] PCP - Ophthalmology Ophthalmology 02/11/13 Denise Woodson APRN IT BUSINESS PROCESS ARCHITECT [address] [place] [address] PCP - General Family Practice 09/21/20 04/07/25 Randy Maradiaga DO [address] [place] [address] PCP - General Neurology 04/08/25 05/25/25 Denise Woodson APRN IT BUSINESS PROCESS ARCHITECT [address] [place] [address] PCP - General Family Practice 05/26/25 Denise Woodson APRN IT BUSINESS PROCESS ARCHITECT [address] [place] [address] Assigned PCP 07/17/20 Usha Simon APRN IT BUSINESS PROCESS ARCHITECT [address] [id number] [place], [place] 6[address] Nurse Practitioner Neurological Surgery 01/24/24 Dangelo Salinas MD [address] [place] [address] Neurology 01/27/24 Anastasia Stearns, RN Lead Build Manager 02/06/24 12/17/24 Germaine Aleman, W Community Health Worker Primary Care - CC 02/18/2412/17/24 Joya Lira [facility] [address] [place] [address] Pharmacist Pharmacist 05/25/24 Joya Lira [facility] [address] [place] [address] Assigned MTM Pharmacist 06/08/24 Fabi Coates MD [address] [place] [address] 75 [place] [address] Genetics, Clinical 06/18/24 Arthur Salas, SENIOR BRANCH MANAGER [address] [place] [address] Assigned Behavioral Health Provider 08/08/24 Randy Maradiaga DO [address] [place] [address] Assigned Neuroscience Provider 08/08/24 Tete Wang MD [address] [place] [address] Genetics, Clinical 10/30/24 Dahlia Joyce MD [address] [place] [address] Radiology Neuroradiology 11/17/24 Lisa Zambrano MD [address] [place], [place] [address] [place] [address] Assigned Heart and Vascular Provider 12/06/24 Tete Wang MD [address] [place] [address] Assigned Pediatric Specialist Provider 01/06/25 Any Joiner MD [address] [place] [address] 276 [place] [address] Assigned Pulmonology Provider 02/05/25 Bindu Bueno OD [address] [place] [address] 055105 Assigned Surgical Provider 03/08/25 Aftab Finn MD [address] [place] [address] Dermatology 03/17/25 Aftab Finn MD [address] [place] [address] 673525 Assigned Dermatology Provider 04/07/25 Selena Mcfadden CHW Community Health Worker 05/25/2505/26 Red De Los Santos LSW Lead Build Manager Primary Care - CC 05/26/25 Santa Menon, PANilesC [address] [place] [address] 272145 Physician Food Service Driver Physical Medicine and Rehabilitation 02/25/25 Alessandra Pereira, RN Specialty Build Manager Neurological Surgery 06/02/25 documented as of this encounter
--- OUTSIDE RECORDS SUMMARY | 2025-07-07 18:23 | XMS_ITS | Encounter Summary ---
Author Organization [facility] Address [address] [place] [address] Care Team Providers Care Zinc Miner Name Role Phone Winston Villatoro OD Unavailable [phone] Denise Woodson APRN CERTIFICATION TECHNICIAN Unavailable +[phone] Denise Woodson APRN CERTIFICATION TECHNICIAN Primary Care Provider Usha Simon APRN CERTIFICATION TECHNICIAN Unavailable + [phone] Dangelo Salinas MD Unavailable Joya Lira RP Unavailable +[phone] Joya Lira [facility] Unavailable +[phone] Fabi Coates MD Unavailable [phone] Sinyigaya, Specmadi SOFTWARE CONFIGURATION SPECIALIST Unavailable +[phone] Randy Maradiaga DO Unavailable + Tete Wang MD Unavailable +[phone] Dahlia Joyce MD Unavailable +[phone] Lisa Zambrano MD Unavailable + [phone] Tete Wang MD Unavailable +[phone] Any Joiner MD Unavailable +[phone] Bindu Bueno OD Unavailable +[phone] Aftab Finn MD Unavailable Randy Maradiaga DO Primary Care Prov ider Aftab Finn MD Unavailable Selena Mcfadden CHW Unavailable [phone] Chintan Denise BARRERA CERTIFICATION TECHNICIAN Primary Care Provider Red De Los Santos WAREHOUSE ENGINEER Unavailable [phone] Santa Menon PA-C Unavailable +[phone] Alessandra Pereira RN Unavailable Encounter Details Date [...] re latives? 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 Judaism Services Not on file 01/22 Active Member [...] Answer Date Recorded PHQ-2 Score 4 03/16/2025 [facility] [place] of Occupat ional Health - Occupational Stress [...] on file Legal Sex Female 4:05 AM PREANALYTICS TEAM LEAD Gender Identity Not on file [...] Description 07/09/2025 11:00 AM CDT Virtual Visit [facility] 150 [place] [phone] Bindu Bueno, OD 909 [place], [place] 426835 Rubi Johnson, OT [address] [address] 07/15/2025 2:30 PM CDT Office Visit [facility] [address] [place] [phone] Denise Woodson APRN CERTIFICATION TECHNICIAN [address] [place], [place] 7308068 07/16/2025 11:00 AM CDT Virtual Visit [address] [phone] BuenoBindu flores, OD 909 [place], [place] 349475 Rubi Johnson, OT [address] 939477 07/23/2025 11:00 AM PREANALYTICS TEAM LEAD Virtual Visit [address] [phone] MylesBindu, OD 909 [place], [place] 375085 Rubi Johnson, OT [address] 859247 08/03/2025 11:00 AM PREANALYTICS TEAM LEAD Virtual Visit [address] [phone] Bindu Bueno, OD 909 [place], [place] 019565 Rubi Johnson, OT [address] [address] 08/03/2025 4:30 PM PREANALYTICS TEAM LEAD Virtual Visit [facility] [address] [phone] Any Joiner MD [address] [place] [address] 172465 08/17/2025 12:45 PM PREANALYTICS TEAM LEAD Virtual Visit [address] [phone] Bindu Bueno, OD 909 [place], [place] 319895 Rubi Johnson, OT [address] 310[address] 10/04/2025 10:15 AM PREANALYTICS TEAM LEAD Virtual Visit [facility] [address] [address] Santa Menon PA-C [address] [place] [address] 395455 01/19/2026 11:30 AM CDT Office Visit [facility] Neurology Clinic [address] [phone] Randy Maradiaga DO 909 [place] [address] documented as of this encounter Visit Diagnoses Not on filedocumented in this encounter Additional Health Concerns Assessment Noted Time PHQ-9 Depression Total Score: 11 025 11:39 AM CDT documented as of this encounter Care Teams Zinc Miner Relationship Specialty Start Date End Date Winston Villatoro OD [facility] [place] [address] [place] [address] PCP - Ophthalmology Ophthalmology 02/11/13 Denise Woodson APRN CERTIFICATION TECHNICIAN [address] [place] [address] PCP - General Family Practice 09/21/20 04/07/25 Randy Maradiaga DO 909 [place] [address] PCP - General Neurology 04/08/25 05/25/25 Denise Woodson APRN CERTIFICATION TECHNICIAN [address] [place] [address] PCP - General Family Practice 05/26/25 Denise Woodson APRN CERTIFICATION TECHNICIAN [address] [place] [address] Assigned PCP 07/17/20 Usha Simon APRN CERTIFICATION TECHNICIAN 9 [facility] [id number] [place] [address] Nurse Practitioner Neurological Surgery 01/24/24 Dangelo Salinas MD [address] [place] [address] Neurology 01/27/24 Joya Lira [facility] [address] [place] [address] Pharmacist Pharmacist 05/25/24 Joya Lira [facility] [address] [place] [address] Assigned MTM Pharmacist 06/08/24 Fabi Coates MD 420 [facility] 75 [place] [address] Genetics, Clinical 06/18/24 Arthur Salas, [facility] [address] [place] [address] Assigned Behavioral Health Provider 08/08/24 Randy Maradiaga DO [address] [place], [place] 882575 Assigned Neuroscience Provider 08/08/24 Tete Wang MD [address] [place] [address] Genetics, Clinical 10/30/24 Dahlia Joyce MD [address] [place], [place] 962305 Radiology Neuroradiology 11/17/24 Lisa Zambrano MD 6405 [facility] [address] [place] [address] Assigned Heart and Vascular Provider 12/06/24 Tete Wang MD [address] [place] [address] Assigned Pediatric Specialist Provider 01/06/25 Any Joiner MD [address] [place] [address] 276 [place] [address] Assigned Pulmonology Provider 02/05/25 Bindu Bueno OD [address] [place] [address] Assigned Surgical Provider 03/08/25 Aftab Finn MD [address] [address] Dermatology 03/17/25 Aftab Finn MD 500 [place], [place] 799585 Assigned Dermatology Provider 04/07/25 Selena Mcfadden, [facility] Community Health Worker 05/25/2505/26 Red De Los Santos LSW Lead Legal Operations Manager Primary Care - CC 05/26/25 Santa Menon, PA-C [address] [place] [address] 879415 Physician Contract Recruiter Physical Medicine and Rehabilitation 02/25/25 Alessandra Pereira, RN Specialty Legal Operations Manager Neurological Surgery 06/02/25 documented as of this encounter
--- OUTSIDE RECORDS SUMMARY | 2025-07-07 18:23 | XMS_ITS | Encounter Summary ---
Author Organization [facility] Address [address] [place] [address] Care Team Providers Care Mold Carrier Name Role Phone Winston Villatoro Se OD Unavailable [phone] Denise Woodson APRN PRECISION ASSEMBLER Unavailable [phone] Denise Woodson APRN PRECISION ASSEMBLER Primary Care Provider Usha Simon APRN PRECISION ASSEMBLER Unavailable + [phone] Dangelo Salinas MD Unavailable Anastasia Stearns RN Unavailable Germaine Aleman CHW Unavailable [phone] Robin Zepeda MD Unavailable Lisa Zambrano MD Unavailable [phone] Raul Hoyos MD Unavailable Joya Lira [facility] Unavailable [phone] Joya Lira [facility] Unavailable Fabi Coates MD Unavailable [phone] Robin Zepeda MD Unavailable [phone] Danna CardenasC Unavailable +[phone] Felicita Desai RN Unavailable Unavailab Arthur Rios Unavailable [phone] Randy Maradiaga DO Unavailable + Tete Wang MD Unavailable [phone] Dahlia Joyce MD Unavailable +[phone] Lisa Zambrano MD Unavailable +[phone] Tete Wang MD Unavailable [phone] Any Joiner MD Unavailable [phone] Myles Bindu OD Unavailable [phone] Aftab Finn MD Unavailable Randy Maradiaga DO Primary Care Prov ider Aftab Finn MD Unavailable Selena Mcfadden CHW Unavailable [phone] Denise Woodson APRN PRECISION ASSEMBLER Primary Care Provider Red De Los Santos READING ASSISTANT Unavailable [phone] Santa Menon-Aida Unavailable [phone] Alessandra Pereira RN Unavailable Encounter Details Date Type Department Care Team (Late st Contact Info) Description 03/16/2024 [facility] [address] [address] Ora Bazan Social History Tobacco Use [...] How often do you attend mandaeism or faith serv ices? Never 02/28/2024 Do [...] Answer Date Recorded PHQ-2 Score 0 03/17/2024 [facility] - [...] file Legal Sex Female 4:05 AM MEDICAL TRANSCRIPTION EDITOR Gender Identity Not on file Sexual [...] 07/09/2025 11:00 AM CDT Virtual Visit [address] [phone] Bindu Bueno, OD 909 [place] [address] Rubi Johnson, OT [address] [address] 07/15/2025 2:30 PM CDT Office Visit [facility] [address] [place] [address] Denise Woodson APRN PRECISION ASSEMBLER [address] [place], [place] 3844668 07/16/2025 11:00 AM CDT [facility] 150 [place] [phone] Bindu Bueno, OD [address] [place] [address] Rubi Johnson, OT [address] [address] 07/23/2025 11:00 AM MEDICAL TRANSCRIPTION EDITOR Virtual Visit [address] [phone] Bindu Bueno, OD [address] [place] [address] Rubi Johnson, OT [address] [address] 08/03/2025 11:00 AM MEDICAL TRANSCRIPTION EDITOR Virtual Visit [address] [phone] Bindu Bueno, OD 909 [place] [address] Rubi Johnson, OT [address] [address] 08/03/2025 4:30 PM MEDICAL TRANSCRIPTION EDITOR Virtual Visit [facility] [address] [phone] Any Joiner MD [address] [place] [address] 08/17/2025 12:45 PM MEDICAL TRANSCRIPTION EDITOR [facility] 150 [place] [phone] Bindu Bueno, OD [address] [place] [address]225 Rubi Johnson, OT [facility] 150 [place] [address] 10/04/2025 10:15 AM MEDICAL TRANSCRIPTION EDITOR Virtual Visit [facility] [address] [phone] Santa Menon, PANilesC [address] [place] [address] 770925 01/19/2026 11:30 AM CDT Office Visit [facility] Neu[facility] [address] [phone] Randy Maradiaga, [address] [place] [address] [phone] documented as of this encounter Visit Diagnoses Not on filedocumented in this encounter Additional Health Concerns Infection Onset Date Last Indicated Resolved Time Rule Out COVID-19 09/13/2024 09/13/2024 09/13/2024 12:31 PM MEDICAL TRANSCRIPTION EDITOR Rule Out COVID-19 11/14/2024 11/14/2024 11/14/2024 8:25 PM MEDICAL TRANSCRIPTION EDITOR Assessment Noted Time PHQ-9 Depression Total Score: 16 024 3:27 PM CDT documented as of this encounter Care Teams Mold Carrier Relationship Specialty Start Date End Date Winston Villatoro, OD [facility] [place] [address] [place] [address] PCP - Ophthalmology Ophthalmology 02/11/13 Denise Woodson APRN PRECISION ASSEMBLER [address] [place] [address] PCP - General Family Practice 09/21/20 04/07/25 Randy Maradiaga DO 909 [place] [address] PCP - General Neurology 04/08/25 05/25/25 Denise Woodson APRN PRECISION ASSEMBLER [address] [place] [address] PCP - General Family Practice 05/26/25 Denise Woodson APRN PRECISION ASSEMBLER [address] [place] [address] Assigned PCP 07/17/20 Usha Simon APRN PRECISION ASSEMBLER [address] [place] [address] 962855 Nurse Practitioner Neurological Surgery 01/24/24 Dangelo Salinas MD [address] [place] [address] Neurology 01/27/24 Anastasia Stearns, RN Lead Wall Man 02/06/24 12/17/24 Germaine Aleman, CHW Community Health Worker Primary Care - CC 02/18/2412/17/24 Robin Zepeda MD [address] [place] [address] Assigned Neuroscience Provider 03/08/24 05/07/24 Lisa Zambrano MD 6405 [facility] [address] [place] [address] Assigned Heart and Vascular Provider 05/08/24 07/07/24 Raul Hoyos MD 909 [facility] [place] [address] Assigned Neuroscience Provider 05/08/24 07/07/24 Joya Lira [facility] [address] [place] [address] Pharmacist Pharmacist 05/25/24 Joya Lira [facility] [address] [place] [address] Assigned MTM Pharmacist 06/08/24 Fabi Coates MD [address] [place] [address] 75 [place], [place] 852925 Genetics, Clinical 06/18/24 Robin Zepeda MD [address] [place], [place] [address] Assigned Neuroscience Provider 07/08/24 08/07/24 Danna Cardenas PA-C 6405 [place] [address] Assigned Heart and Vascular Provider 07/08/24 12/05/24 Felicita Desai, GEMA Lead Wall Man 07/14/24 07/28/24 Arthur Salas [facility] [address] [place] [address] Assigned Behavioral Health Provider 08/08/24 Randy Maradiaga DO [address] [place] [address] Assigned Neuroscience Provider 08/08/24 Tete Wang MD [address] [place] [address] Genetics, Clinical 10/30/24 Dahlia Joyce MD [address] [place] [address] Radiology Neuroradiology 11/17/24 Lisa Zambrano MD [address] [place] [address] [address] [place] [address] Assigned Heart and Vascular Provider 12/06/24 Tete Wang MD [address] [place] [address] Assigned Pediatric Specialist Provider 01/06/25 Any Joiner MD [address] [place] [address] Assigned Pulmonology Provider 02/05/25 Bindu Bueno OD [address] [place] [address] 349425 Assigned Surgical Provider 03/08/25 Aftab Finn MD [address] [place] [address] Dermatology 03/17/25 Aftab Finn MD [address] [place] [address] 081035 Assigned Dermatology Provider 04/07/25 Selena Mcfadden, W Community Health Worker 05/25/2505/26 Red De Los Santos LSW Lead Wall Man Primary Care - CC 05/26/25 Santa Menon, PANilesC [address] [place] [address] 872185 Physician Action Installer Physical Medicine and Rehabilitation 02/25/25 Alessandra Pereira, RN Specialty Wall Man Neurological Surgery 06/02/25 documented as of this encounter
--- OUTSIDE RECORDS SUMMARY | 2025-07-07 18:23 | XMS_ITS | Encounter Summary ---
Author Organization [facility] Address [address] [place] [address] Care Team Providers Care Spiritual Care Coordinator Name Role Phone Winston Villatoro OD Unavailable [phone] Denise Woodson APRN MILKING MACHINE MECHANIC Unavailable [phone] Dneise Woodson APRN MILKING MACHINE MECHANIC Primary Care Provider Usha Simon APRN MILKING MACHINE MECHANIC Unavailable + [phone] Dangelo Salinas MD Unavailable Joya Lira RP Unavailable [phone] Joya Lira [facility] Unavailable [phone] Fabi Coates MD Unavailable [phone] Sinyigaya, Specmadi AIR CONDITIONING SPECIALIST Unavailable +[phone] Randy Maradiaga DO Unavailable + Tete Wang MD Unavailable +[phone] Dahlia Joyce MD Unavailable [phone] Lisa Zambrano MD Unavailable + [phone] Tete Wang MD Unavailable +[phone] Any Joiner MD Unavailable +[phone] Bindu Bueno OD Unavailable [phone] Aftab Finn MD Unavailable Randy Maradiaga DO Primary Care Prov ider Aftab Finn MD Unavailable Selena Mcfadden CHW Unavailable [phone] ChintanDenise APRN MILKING MACHINE MECHANIC Primary Care Provider Filiberto Red FIELD SALES EXECUTIVE Unavailable [phone] Santa MenonC Unavailable +[phone] Aelssandra Pereira RN Unavailable Encounter Details Date Type Department Care Team (Late st Contact Info) Description 01/01/2025 [facility] Medical Advice [facility] Medicine [facility] Rehabilitation Clinic [address] [phone] Santa Menon PA-C [address] [place] [address] Social History Tobacco Use Types Packs/Day [...] How often do you attend faith or confucianist serv ices? Never 09/16/2024 Do you belong [...] Answer Date Recorded PHQ-2 Score 2 12/31/2024 [facility] - Occupational Stress Questionnaire Answer [...] on file Legal Sex Female 4:05 AM RUGBY LEAGUE FOOTBALLER Gender Identity Not on file Sexual Orientation [...] 07/09/2025 11:00 AM CDT Virtual Visit [address] [phone] Bindu Bueno, OD [address] [place], [place] 797165 Rubi Johnson, OT [address] 943577 07/15/2025 2:30 PM CDT Office Visit [facility] [address] [place] [address] Denise Woodson APRN MILKING MACHINE MECHANIC [address] [place] [address] 07/16/2025 11:00 AM CDT Virtual Visit [address] [phone] Bindu Bueno, OD [address] [place], [place] 381045 Rubi Johnson, OT [address] 529457 07/23/2025 11:00 AM RUGBY LEAGUE FOOTBALLER Virtual Visit [address] [phone] Bindu Bueno, OD [address]09 [place] [address] Rubi Johnson, OT [address] [address] 08/03/2025 11:00 AM RUGBY LEAGUE FOOTBALLER Virtual Visit [address] [phone] Bindu Bueno, OD [address] [place] [address] 768845 Rubi Johnson, OT [address] [address] 08/03/2025 4:30 PM RUGBY LEAGUE FOOTBALLER Virtual Visit [facility] [address] [phone] Any Joiner MD [address] [place] [address] 905345 08/17/2025 12:45 PM RUGBY LEAGUE FOOTBALLER Virtual Visit [address] [phone] Bindu Bueno, OD [address]09 [place] [address] Rubi Johnson, OT [address] 896427 10/04/2025 10:15 AM RUGBY LEAGUE FOOTBALLER Virtual Visit [facility] Rehabilitation Clinic [address] [address] Santa Menon PA-C [address] [place] [address] 236895 01/19/2026 11:30 AM CDT Office Visit [facility] Neurology Clinic [address] [phone] Randy Maradiaga DO [address] [place] [address] 117695 documented as of this encounter Visit Diagnoses Not on filedocumented in this encounter Additional Health Concerns Assessment Noted Time PHQ-9 Depression Total Score: 9 12/18/19 9:40 AM CDT documented as of this encounter Care Teams Spiritual Care Coordinator Relationship Specialty Start Date End Date Winston Villatoro OD [facility] 701 [facility] [address] [place] [address] PCP - Ophthalmology Ophthalmology 02/11/13 Denise Woodson APRN MILKING MACHINE MECHANIC [address] [place] [address] PCP - General Family Practice 09/21/20 04/07/25 Randy Maradiaga DO [address] [place] [address] PCP - General Neurology 04/08/25 05/25/25 Denise Woodson APRN MILKING MACHINE MECHANIC [address] [place] [address] PCP - General Family Practice 05/26/25 Denise Woodson APRN MILKING MACHINE MECHANIC [address] [facility] [place] [address] Assigned PCP 07/17/20 Usha Simon APRN MILKING MACHINE MECHANIC 909 [facility] [place] [id number] [address] Nurse Practitioner Neurological Surgery 01/24/24 Dangelo Salinas MD [address] [place] [address] Neurology 01/27/24 Joya Lira [facility] [address] [place] [address] Pharmacist Pharmacist 05/25/24 Joya Lira [facility] [address] [place], [place] 01563406 Assigned MTM Pharmacist 06/08/24 Fabi Coates MD 420 [facility] 75 [place], [place] 922765 Genetics, Clinical 06/18/24 Arthur Salas, [facility] [address] [place] [address] Assigned Behavioral Health Provider 08/08/24 Randy Maradiaga DO 909 [place] [address] Assigned Neuroscience Provider 08/08/24 Tete Wang MD [address] [place] [address] Genetics, Clinical 10/30/24 Dahlia Joyce MD [address] [place] [address] Radiology Neuroradiology 11/17/24 Lisa Zambrano MD [address] [place] [address] [address] [place] [address] Assigned Heart and Vascular Provider 12/06/24 Tete Wang MD [address] [place] [address] Assigned Pediatric Specialist Provider 01/06/25 Any Joiner MD [address] [place] [address] 228315 Assigned Pulmonology Provider 02/05/25 Bindu Bueno OD [address] [place] [address] 561875 Assigned Surgical Provider 03/08/25 Aftab Finn MD [address] [address] Dermatology 03/17/25 Aftab Finn MD [address] [place] [address] 085765 Assigned Dermatology Provider 04/07/25 Selena Mcfadden, W Community Health Worker 05/25/2505/26 Red De Los Santos FIELD SALES EXECUTIVE Lead Bakeshop Cleaner Primary Care - CC 05/26/25 Santa Menon PA-C [address] [place] [address] Physician Geriatric Nursing Assistant Physical Medicine and Rehabilitation 02/25/25 Alessandra Pereira RN Specialty Bakeshop Cleaner Neurological Surgery 06/02/25 documented as of this encounter
--- OUTSIDE RECORDS SUMMARY | 2025-07-07 18:23 | XMS_ITS | Encounter Summary ---
Author Organization [facility] Address [address] [place] [address] Care Team Providers Care Steel Worker Name Role Phone Winston Villatoro Se OD Unavailable +[phone] Denise Woodson APRN NETWORK ANNOUNCER Unavailable +[phone] Denise Woodson APRN NETWORK ANNOUNCER Primary Care Provider Usha Simon APRN NETWORK ANNOUNCER Unavailable + [phone] Dangelo Salinas MD Unavailable Anastasia Stearns RN Unavailable [phone] Germaine Aleman CHW Unavailable +[phone] Joya Lira RP Unavailable Joya Lira [facility] Unavailable Fabi Coates MD Unavailable [phone] Robin Zepeda MD Unavailable Danna Cardenas PA-C Unavailable +[phone] Felicita Desai RN Unavailable Unavailab Arthur Rios Unavailable +[phone] Randy Maradiaga DO Unavailable + Tete Wang MD Unavailable +[phone] Dahlia Joyce MD Unavailable +[phone] Lisa Zambrano MD Unavailable [phone] Tete Wang MD Unavailable +[phone] Any Joiner MD Unavailable +[phone] BuenoBindu OD Unavailable +[phone] Aftab Finn MD Unavailable Randy Maradiaga DO Primary Care Prov ider Aftab Finn MD Unavailable Selena Mcfadden CHW Unavailable [phone] Denise Woodson APRN NETWORK ANNOUNCER Primary Care Provider Red De Los Santos BENCH WORKER BINDING Unavailable [phone] Santa Menon PA-C Unavailable [phone] Alessandra Pereira RN Unavailable Encounter Details Date Type Department Care Team (Late st Contact Info) Description 07/16/2024 MyC Medical Advice [facility] [address] [place] [address] [facility] [address] [place] [address] Social History Tobacco Use Types [...] How often do you attend baptist or scientologist serv ices? 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 Wish to be (Lifetime) No 07/16/2024 11:46 AM CDT Sinyigaya, Speci ose, DELICATESSEN CLERK 2. Non-Specific Active Suicidal Thoughts (Lifetime) No 07/16/2024 11:46 AM CDT Sinyiga ya, Speciose, DELICATESSEN CLERK * Suicidal Behavior Question Answer Date of Assessment Author Actual Attempt (Lifetime) No 07/16/2024 11:4 6 AM CDT Sinyigaya, Speciose, DELICATESSEN CLERK Has subject engaged in non-suicidal self-injurious behavior? (Lifetime) No 07/16/2024 11:46 AM CDT Sinyigaya, Spec iose, DELICATESSEN CLERK Interrupted Attempts (Lifetime) No 07/16/2024 11:46 AM CDT Sinyigaya, Speci ose, DELICATESSEN CLERK Aborted or Self-Interrupted Attempt (Lifetime) No 07/16/2024 11:46 AM CDT Sinyigaya, Speci ose, DELICATESSEN CLERK Preparatory Acts or Behavior (Lifetime) No 07/16/2024 11:46 AM CDT Gretchen Salas, DELICATESSEN CLERK documented as of this encounter Plan of Treatment Upcoming Encounters Date Type Department Care Team (Late st Contact Info) Description 07/09/2025 11:00 AM CDT Virtual Visit [address] [phone] Bindu Bueno, OD 909 [place], [place] 642875 Rubi Johnson, OT [address] 182827 07/15/2025 2:30 PM CDT Office Visit [facility] [address] [place] [phone] Denise Woodson APRN [facility] [address] [place], [place] 8987368 07/16/2025 11:00 AM CDT Virtual Visit [address] [phone] Bindu Bueno, OD 909 [place], [place] 352475 Rubi Johnson, OT [address] 895507 07/23/2025 11:00 AM CONGREGATIONAL CARE PASTOR Virtual Visit [address] [phone] Bindu Bueno, OD 909 [place], [place] 54[address] Rubi Johnson, OT [address] [address] 08/03/2025 11:00 AM CONGREGATIONAL CARE PASTOR Virtual Visit [address] [phone] Bindu Bueno, OD 909 [place], [place] [address] Rubi Johnson, OT [address] [address] 08/03/2025 4:30 PM CONGREGATIONAL CARE PASTOR Virtual Visit [facility] [address] [phone] Any Joiner MD [address] [place] [address] 495145 08/17/2025 12:45 PM CONGREGATIONAL CARE PASTOR Virtual Visit [address] [phone] Bindu Bueno, OD 9 [place], [place] 309675 Rubi Johnson, OT [address] [address] 10/04/2025 10:15 AM CONGREGATIONAL CARE PASTOR Virtual Visit [facility] [address] [place] [phone] Santa Menon, PANilesC [address] [place] [address] 562205 01/19/2026 11:30 AM CDT Office Visit [facility] [place] [address] [place] [address] 3rd [place] [phone] Randy Maradiaga DO [address] [place] [address] documented as of this encounter Visit Diagnoses Not on filedocumented in this encounter Additional Health Concerns Infection Onset Date Last Indicated Resolved Time Rule Out COVID-19 09/13/2024 09/13/2024 09/13/2024 12:31 PM CONGREGATIONAL CARE PASTOR Rule Out COVID-19 11/14/2024 11/14/2024 11/14/2024 8:25 PM CONGREGATIONAL CARE PASTOR Assessment Noted Time PHQ-9 Depression Total Score: 14 024 11:46 AM CDT documented as of this encounter Care Teams Steel Worker Relationship Specialty Start Date End Date Winston Villatoro OD [facility] [place] [address] [place] [address] PCP - Ophthalmology Ophthalmology 02/11/13 Denise Woodson APRN NETWORK ANNOUNCER [address] [address] [address] PCP - General Family Practice 09/21/20 04/07/25 Randy Maradiaga DO [address] [place] [address] PCP - General Neurology 04/08/25 05/25/25 Denise Woodson APRN NETWORK ANNOUNCER [address] [address] [address] PCP - General Family Practice 05/26/25 Denise Woodson APRN NETWORK ANNOUNCER [address] [address] [address] Assigned PCP 07/17/20 Usha Simon APRN NETWORK ANNOUNCER [address] [address] Nurse Practitioner Neurological Surgery 01/24/24 Dangelo Salinas MD [address] [place] [address] Neurology 01/27/24 Anastasia Stearns, RN Lead Tone Artist Apprentice 02/06/24 12/17/24 Germaine Aleman, W Community Health Worker Primary Care - CC 02/18/2412/17/24 Joya Lira [facility] [address] [place] [address] Pharmacist Pharmacist 05/25/24 Joya Lira [facility] [address] [place] [address] Assigned MTM Pharmacist 06/08/24 Fabi Coates MD [address] [place] [address] 75 [place], [place] 020[address] Genetics, Clinical 06/18/24 Robin Zepeda MD [address] [place] [address] 073675 Assigned Neuroscience Provider 07/08/24 08/07/24 Danna Cardenas PA-C 6405 [place], [place] 231785 Assigned Heart and Vascular Provider 07/08/24 12/05/24 Felicita Desai, RN Lead Tone Artist Apprentice 07/14/24 07/28/24 Arthur Salas, [facility] [address] [place] [address] Assigned Behavioral Health Provider 08/08/24 Randy Maradiaga DO [address] [place] [address] 085865 Assigned Neuroscience Provider 08/08/24 Tete Wang MD [address] [place] [address] 780574 Genetics, Clinical 10/30/24 Dahlia Joyce MD [address] [place] [address] 341805 Radiology Neuroradiology 11/17/24 Lisa Zambrano MD [address] [place] [address] Assigned Heart and Vascular Provider 12/06/24 Tete Wang MD [address] [place] [address] Assigned Pediatric Specialist Provider 01/06/25 Any Joiner MD [address] [place] [address] 126065 Assigned Pulmonology Provider 02/05/25 Bindu Bueno OD [address] [place] [address] Assigned Surgical Provider 03/08/25 Aftab Finn MD [address] [address] Dermatology 03/17/25 Aftab Finn MD 500 [place] [address] Assigned Dermatology Provider 04/07/25 Selena Mcfadden, [facility] Community Health Worker 05/25/2505/26 Red De Los Santos LSW Lead Tone Artist Apprentice Primary Care - CC 05/26/25 Santa Menon, PA-C [address] [place] [address] Physician Leacher Physical Medicine and Rehabilitation 02/25/25 Alessandra Pereira, RN Specialty Tone Artist Apprentice Neurological Surgery 06/02/25 documented as of this encounter
--- OUTSIDE RECORDS SUMMARY | 2025-07-07 18:23 | XMS_ITS | Encounter Summary ---
Author Organization [facility] Address [address] [place] [address] Care Team Providers Care Ceramics Technician Name Role Phone Yung Madrigal MD Unavailable Unavailable Winston Villatoro OD Unavailable [phone] Denise Woodson APRN DIRECTOR OF ACADEMIC Unavailable +[phone] Denise Woodson APRN DIRECTOR OF ACADEMIC Primary Care Provider Usha Simon APRN DIRECTOR OF ACADEMIC Unavailable Dangelo Salinas MD Unavailable Usha Simon APRN DIRECTOR OF ACADEMIC Unavailable [phone] Anastasia Stearns RN Unavailable +[phone] Germaine Aleman CHW Unavailable [phone] Robin Zepeda MD Unavailable Lisa Zambrano MD Unavailable Raul Hoyos MD Unavailable Joya Lira [facility] Unavailable +[phone] Joya Lira RPJoleen Unavailable +[phone] Fabi Coates MD Unavailable [phone] Robin Zepeda MD Unavailable Danna Cardenas PA-C Unavailable +[phone] Felicita Desai RN Unavailable Unavailab le Arthur Salas TACO MAKER Unavailable +[phone] Randy Maradiaga DO Unavailable + Tete Wang MD Unavailable [phone] Dahlia Joyce MD Unavailable +[phone] Lisa Zambrano MD Unavailable + [phone] Tete Wang MD Unavailable [phone] Any Joiner MD Unavailable +[phone] BuenoBindu OD Unavailable +[phone] Aftab Finn MD Unavailable Randy Maradiaga DO Primary Care Prov ider Aftab Finn MD Unavailable Selena Mcfadden CHW Unavailable [phone] Denise Woodson APRN DIRECTOR OF ACADEMIC Primary Care Provider Lesterjoe Red COMMERCIAL LINES ACCOUNT EXECUTIVE Unavailable [phone] Santa Menon PA-C Unavailable [phone] Alessandra Pereira RN Unavailable Reason for Visit * Reason Comments Medication Refill Encounter Details Date Type Department Care Team (Late st Contact Info) Description 02/19/2022 Refill [facility] [address] [place] [address] Denise Woodson APRN DIRECTOR OF ACADEMIC [address] [place] [address] Medication Refill Social History Tobacco [...] on file Legal Sex Female 4:05 AM CITY DIRECTOR Gender Identity Not on file Sexual [...] 07/09/2025 11:00 AM CDT Virtual Visit [address] [phone] Bindu Bueno, OD 909 [place], [place] 324945 Rubi Johnson, OT [address] [address] 07/15/2025 2:30 PM CDT Office Visit [facility] [address] [place] [address] Denise Woodson APRN [facility] [address] [place] [address] 07/16/2025 11:00 AM CDT Virtual Visit [address] [phone] MylesBindu, OD 909 [place] [address] Rubi Johnson, OT [facility] [address] [place] [address] 07/23/2025 11:00 AM CITY DIRECTOR Virtual Visit [facility] 150 [place] [phone] Bindu Bueno, OD 909 [place], [place] 800225 Rubi Johnson, OT [address] [address] 08/03/2025 11:00 AM CITY DIRECTOR Virtual Visit [address] [phone] Bindu Bueno, OD 909 [place], [place] 236655 Rubi Johnson, OT [address] [address] 08/03/2025 4:30 PM CITY DIRECTOR Virtual Visit [facility] [place] [address] [place] [phone] Any Joiner MD [address] [place] [address] 08/17/2025 12:45 PM CITY DIRECTOR Virtual Visit [address] [phone] BuenoBindu, OD 909 [place] [address] Rubi Johnson, OT [address] [place] [address] 10/04/2025 10:15 AM CITY DIRECTOR Virtual Visit [facility] [address] [phone] Santa Menon, PA-C [address] [place] [address] 128265 01/19/2026 11:30 AM CDT Office Visit [facility]rology Clinic [address] [address] Randy Maradiaga, [address] [place] [address] 813085 documented as of this encounter Visit Diagnoses Diagnosis Moderate persistent asthma without complication Unspecified asthma documented in this encounter Additional Health Concerns Infection Onset Date Last Indicated Resolved Time Rule Out COVID-19 09/13/2024 09/13/2024 09/13/2024 12:31 PM CITY DIRECTOR Rule Out COVID-19 11/14/2024 11/14/2024 11/14/2024 8:25 PM CITY DIRECTOR Assessment Noted Time PHQ-9 Depression Total Score: 0 06/23/20 21 4:11 PM CDT documented as of this encounter Care Teams Ceramics Technician Relationship Specialty Start Date End Date Yung Madrigal MD RETIRED PCP - Orthopaedics Orthopedics 08/26/12 01/20/24 Winston Villatoro, OD [facility] [place] [address] [place] [address] PCP - Ophthalmology Ophthalmology 02/11/13 Denise Woodson APRN DIRECTOR OF ACADEMIC [address] [place] [address] PCP - General Family Practice 09/21/20 04/07/25 Randy Maradiaga DO 9 [place] [address] PCP - General Neurology 04/08/25 05/25/25 Denise Woodson APRN DIRECTOR OF ACADEMIC [address] [place] [address] PCP - General Family Practice 05/26/25 Denise Woodson APRN DIRECTOR OF ACADEMIC [address] [place] [address] Assigned PCP 07/17/20 Usha Simon APRN DIRECTOR OF ACADEMIC [address] [place] [address] 870465 Nurse Practitioner Neurological Surgery 01/24/24 Dangelo Salinas MD [address] [address] Neurology 01/27/24 Usha Simon APRN DIRECTOR OF ACADEMIC [address] [place] [address] 379805 Assigned Neuroscience Provider 02/06/24 03/07/24 Anastasia Stearns, RN Lead Outreach Counselor 02/06/24 12/17/24 Germaine Aleman, CHW Community Health Worker Primary Care - CC 02/18/2412/17/24 Robin Zepeda MD [address] [place] [address] Assigned Neuroscience Provider 03/08/24 05/07/24 Lisa Zambrano MD [address] [facility] [address] [place] [address] Assigned Heart and Vascular Provider 05/08/24 07/07/24 Raul Hoyos MD [address] [place] [address] Assigned Neuroscience Provider 05/08/24 07/07/24 Joya Lira [facility] [address] [place] [address] Pharmacist Pharmacist 05/25/24 Joya Lira [facility] [address] [place] [address] Assigned MTM Pharmacist 06/08/24 Fabi Coates MD [address] [place] [address] 75 [place] [address] Genetics, Clinical 06/18/24 Robin Zepeda MD [address] [place] [address] Assigned Neuroscience Provider 07/08/24 08/07/24 Danna Cardenas PA-C 6405 [place] [address] Assigned Heart and Vascular Provider 07/08/24 12/05/24 Felicita Desai, RN Lead Outreach Counselor 07/14/24 07/28/24 Arthur Salas [facility] [address] [place] [address] Assigned Behavioral Health Provider 08/08/24 Randy Maradiaga DO [address] [place] [address] 227545 Assigned Neuroscience Provider 08/08/24 Tete Wang MD [address] [place] [address] 653284 Genetics, Clinical 10/30/24 Dahlia Joyce MD [address] [place] [address] 247975 Radiology Neuroradiology 11/17/24 Lisa Zambrano MD [address] [address] Assigned Heart and Vascular Provider 12/06/24 Tete Wang MD [address] [place] [address] Assigned Pediatric Specialist Provider 01/06/25 Any Joiner MD [address] [place] [address] Assigned Pulmonology Provider 02/05/25 Bindu Bueno OD [address] [place] [address] Assigned Surgical Provider 03/08/25 Aftab Finn MD [address] [address] Dermatology 03/17/25 Aftab Finn MD 500 [place] [address] Assigned Dermatology Provider 04/07/25 Selena Mcfadden, [facility] Community Health Worker 05/25/2505/26 Red De Los Santos LSW Lead Outreach Counselor Primary Care - CC 05/26/25 Santa Menon, PANilesC 909 [place] [address] Physician Service Center Coordinator Physical Medicine and Rehabilitation 02/25/25 Alessandra Pereira, RN Specialty Outreach Counselor Neurological Surgery 06/02/25 documented as of this encounter
--- OUTSIDE RECORDS SUMMARY | 2025-07-07 18:23 | XMS_ITS | Encounter Summary ---
Author Organization [facility] Address [address] [place] [address] Care Team Providers Care Sorter Packer Name Role Phone Winston Villatoro OD Unavailable [phone] Denise Woodson APRN OVEREDGE MACHINE OPERATOR Unavailable +[phone] Denise Woodson APRN OVEREDGE MACHINE OPERATOR Primary Care Provider Usha Simon APRN OVEREDGE MACHINE OPERATOR Unavailable + [phone] Dangelo Salinas MD Unavailable Joya Lira RP Unavailable [phone] Joya Lira [facility] Unavailable +[phone] Fabi Coates MD Unavailable [phone] Sinyigaya, Specmadi TERRESTRIAL ECOLOGIST Unavailable +[phone] Randy Maradiaga DO Unavailable + Tete Wang MD Unavailable +[phone] Dahlia Joyce MD Unavailable [phone] Lisa Zambrano MD Unavailable + [phone] Tete Wang MD Unavailable +[phone] Any Joiner MD Unavailable +[phone] Bindu Bueno OD Unavailable +[phone] Aftab Finn MD Unavailable Randy Maradiaga DO Primary Care Prov ider Aftab Finn MD Unavailable Selena Mcfadden CHW Unavailable [phone] ChintanDenise APRN OVEREDGE MACHINE OPERATOR Primary Care Provider Red De Los Santos DOOR FRAME BUILDER Unavailable [phone] Santa Menon PA-C Unavailable [phone] Alessandra Pereira RN Unavailable Reason for Visit * Reason Onset Date Comments Medication Question 01/06/2025 Encounter Details Date Type Department Care Team (Latest Contact Info) Description 01/06/2025 Ajay Medical Advice [facility] [address] [phone] Snata Menon PA-C [address] [place] [address] Medication Question Social History Tobacco Use Types [...] Never 09/16/2024 How often do you attend hinduism or jehovah's witness serv ices? Never 09/16/2024 [...] Answer Date Recorded PHQ-2 Score 1 01/07/2025 [facility] - Occupational Stress Questionnaire Answer Date Recorded [...] on file Legal Sex Female 4:05 AM GARMENT ALTERATION EXAMINER Gender Identity Not on file Sexual [...] and Amitriptyline at the same time Candy Espinal Registered Nurse [facility] * Telephone Encounter - Denise Woodson APRN [...] about reducing the dose and starting amitriptyline Golf Ball Inspector advised pt that her PM &R provider [...] Description 07/09/2025 11:00 AM CDT Virtual Visit [address] [phone] Myles, Bindu, OD [address] [place], [place] [address] Rubi Johnson, OT [address] [address] 07/15/2025 2:30 PM CDT Office Visit [facility] [address] [place] [phone] Chintan DeniseBARRERA OVEREDGE MACHINE OPERATOR [address] [place] [address] 07/16/2025 11:00 AM CDT Virtual Visit [address] [phone] Bindu Bueno, OD 909 [place], [place] 123585 Rubi Johnson, OT [address] [address] 07/23/2025 11:00 AM GARMENT ALTERATION EXAMINER Virtual Visit [address] [phone] Bindu Bueno, OD 909 [place], [place] 6633[address] Rubi Johnson, OT [address] [address] 08/03/2025 11:00 AM GARMENT ALTERATION EXAMINER Virtual Visit [address] [phone] Bindu Bueno, OD 909 [place], [place] 809475 Rubi Johnson, OT [address] [address] 08/03/2025 4:30 PM GARMENT ALTERATION EXAMINER Virtual Visit [facility] [address] [phone] Any Joiner MD [address] [place] [address] 276 [place] [address] 08/17/2025 12:45 PM GARMENT ALTERATION EXAMINER Virtual Visit [facility] 150 [place] [address] Bindu Bueno, OD [address] [place] [address] Rubi Johnson, OT [address] [address] 10/04/2025 10:15 AM GARMENT ALTERATION EXAMINER Virtual Visit [facility] [address] [phone] Santa Menon, PA-C [address] [place] [address] 671175 01/19/2026 11:30 AM CDT Office Visit [facility] Neurology [facility] [address] [phone] Randy Maradiaga, [address] [place] [address] 317705 documented as of this encounter Visit Diagnoses Not on filedocumented in this encounter Additional Health Concerns Assessment Noted Time PHQ-9 Depression Total Score: 9 12/18/19 25 9:40 AM CDT documented as of this encounter Care Teams Sorter Packer Relationship Specialty Start Date End Date Winston Villatoro, OD [facility] [place] [address] [facility] [address] [place] [address] PCP - Ophthalmology Ophthalmology 02/11/13 Denise Woodson APRN OVEREDGE MACHINE OPERATOR [address] [place] [address] PCP - General Family Practice 09/21/20 04/07/25 Randy Maradiaga DO 909 [place] [address] PCP - General Neurology 04/08/25 05/25/25 Denise Woodson APRN OVEREDGE MACHINE OPERATOR [address] [place] [address] PCP - General Family Practice 05/26/25 Denise Woodson APRN OVEREDGE MACHINE OPERATOR [address] [place] [address] Assigned PCP 07/17/20 Usha Simon APRN OVEREDGE MACHINE OPERATOR 9 [facility] [id number] [place] [address] Nurse Practitioner Neurological Surgery 01/24/24 Dangelo Salinas MD [address] [place] [address] Neurology 01/27/24 Joya Lira RPH [address] [place] [address] Pharmacist Pharmacist 05/25/24 Joya Lira RPH [address] [place] [address] Assigned MTM Pharmacist 06/08/24 Fabi Coates MD 420 [facility] 75 [place] [address] Genetics, Clinical 06/18/24 ChristophsamanthaledyNeishazohraabilio, TERRESTRIAL ECOLOGIST [address] [place] [address] Assigned Behavioral Health Provider 08/08/24 Randy Maradiaga DO 909 [place], [place] 905655 Assigned Neuroscience Provider 08/08/24 Tete Wang MD [address] [place] [address] 594114 Genetics, Clinical 10/30/24 Dahlia Joyce MD 909 [place], [place] 794285 Radiology Neuroradiology 11/17/24 Lisa Zambrano MD 6405 [facility] [address] [place], [place] 359085 Assigned Heart and Vascular Provider 12/06/24 Tete Wang MD [address] [place] [address] 363784 Assigned Pediatric Specialist Provider 01/06/25 Any Joiner MD 420 [facility] 276 [place] [address] Assigned Pulmonology Provider 02/05/25 Bindu Bueno OD 909 [place] [address] Assigned Surgical Provider 03/08/25 Aftab Finn MD [address] [address] Dermatology 03/17/25 Aftab Finn MD 500 [place] [address] Assigned Dermatology Provider 04/07/25 Selena Mcfadden, [facility] Community Health Worker 05/25/2505/26 Red De Los Santos LSW Lead Sales And Catering Coordinator Primary Care - CC 05/26/25 Santa Menon, PA-C 909 [place] [address] Physician Bank Appraiser Physical Medicine and Rehabilitation 02/25/25 Alessandra Pereira, RN Specialty Sales And Catering Coordinator Neurological Surgery 06/02/25 documented as of this encounter
--- OUTSIDE RECORDS SUMMARY | 2025-07-07 18:23 | XMS_ITS | Encounter Summary ---
Author Organization [facility] Address [address] [place] [address]31 Care Team Providers Care Spray Machine Operator Name Role Phone Shauna Winston Se OD Unavailable [phone] Denise Woodson APRN CLAIM REP Unavailable [phone] Denise Woodson APRN CLAIM REP Primary Care Provider Usha Simon APRN CLAIM REP Unavailable Dangelo Salinas MD Unavailable Usha Simon APRN CLAIM REP Unavailable Anastasia Stearns RN Unavailable [phone] Germaine Aleman [facility] Unavailable [phone] Robin Zepeda MD Unavailable [phone] Lisa Zambrano MD Unavailable Raul Hoyos MD Unavailable Joya Lira [facility] Unavailable [phone] Joya Lira Joleen Unavailable Fabi Coates MD Unavailable [phone] Robin Zepeda MD Unavailable Danna Cardenas PA-C Unavailable +[phone] Felicita Desai RN Unavailable Unavailab Arthur Rios Unavailable +[phone] Randy Maradiaga DO Unavailable + Tete Wang MD Unavailable +[phone] Dahlia Joyce MD Unavailable [phone] Lisa Zambrano MD Unavailable + [phone] Tete Wang MD Unavailable +[phone] Any Joiner MD Unavailable [phone] BuenoBindu OD Unavailable [phone] Aftab Finn MD Unavailable Randy Maradiaga DO Primary Care Prov ider Aftab Finn MD Unavailable Selena Mcfadden CHW Unavailable [phone] Denise Woodson APRN CLAIM REP Primary Care Provider Red De Los Santos QUALITY AUDITOR Unavailable [phone] Santa Menon PA-C Unavailable +[phone] Alessandra Pereira RN Unavailable Encounter Details Date Type Department Care Team (Late st Contact Info) Description 01/27/2024 [facility]rology [facility] [address] [address] [facility] Social History Tobacco Use Types Packs/Day Years [...] file Legal Sex Female 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 Gender Identity Not on file Sexual Orientation Not on file 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 Not on file Not on file Not on file Not on file Not on file Not on file documented as of this encounter Plan of Treatment Upcoming Encounters Date Type Department Care Team (Late st Contact Info) Description 07/09/2025 11:00 AM CDT Virtual Visit [address] [phone] BuenoBindu flores, OD [address]09 [place], [place] 9225[address] Rubi Johnson, OT [address] [id number] 07/15/2025 2:30 PM CDT Office Visit [facility] [address] [place] [phone] Denise Woodson APRN [facility] [address] [place], [place] [phone] 07/16/2025 11:00 AM CDT Virtual Visit [address] [phone] Bindu Bueno, OD [address] [place], [place] 8423[address] Rubi Johnson, OT [address] 122667 07/23/2025 11:00 AM MANAGER OF FINANCIAL Virtual Visit [address] [phone] BuenoBindu, OD [address] [place], [place] 9544[address] uRbi Johnson, OT [facility] [address] 538407 08/03/2025 11:00 AM MANAGER OF FINANCIAL Virtual Visit [address] [phone] Bindu Bueno, OD [address] [place], [place] 9904[address] Rubi Johnson, OT [address] 734157 08/03/2025 4:30 PM MANAGER OF FINANCIAL Virtual Visit [facility] [address] [phone] Any Joiner MD [address] [place] [address] 941575 08/17/2025 12:45 PM MANAGER OF FINANCIAL Virtual Visit [address] [phone] Bindu Bueno, OD [address] [place] [address] 659265 Rubi Johnson, OT [address] [address] 10/04/2025 10:15 AM MANAGER OF FINANCIAL Virtual Visit [facility] [address] [phone] Santa Menon [facility] [address] [place] [address] 306615 01/19/2026 11:30 AM CDT Office Visit [facility] [place] [address] [facility] 3rd [place] [phone] Randy Maradiaga DO [address] [place] [address] documented as of this encounter Visit Diagnoses Not on filedocumented in this encounter Additional Health Concerns Infection Onset Date Last Indicated Resolved Time Rule Out COVID-19 09/13/2024 09/13/2024 09/13/2024 12:31 PM MANAGER OF FINANCIAL Rule Out COVID-19 11/14/2024 11/14/2024 11/14/2024 8:25 PM MANAGER OF FINANCIAL Assessment Noted Time PHQ-9 Depression Total Score: 0 06/23/20 21 4:11 PM CDT documented as of this encounter Care Teams Spray Machine Operator Relationship Specialty Start Date End Date Winston Villatoro OD [facility] [place] [address] [facility] [address] [place] [address] PCP - Ophthalmology Ophthalmology 02/11/13 Denise Woodson APRN CLAIM REP [id number] [address] PCP - General Family Practice 09/21/20 04/07/25 Randy Maradiaga DO [address] [place] [address] PCP - General Neurology 04/08/25 05/25/25 Denise Woodson APRN CLAIM REP [id number] [address] PCP - General Family Practice 05/26/25 Denise Woodson APRN CLAIM REP [id number] [address] Assigned PCP 07/17/20 Usha Simon APRN CLAIM REP [address] [address] Nurse Practitioner Neurological Surgery 01/24/24 Dangelo Salinas MD [address] [place] [address] Neurology 01/27/24 Usha Simon APRN CLAIM REP [address] [place] [address] Assigned Neuroscience Provider 02/06/24 03/07/24 Anastasia Stearns, RN Lead Launch Steward 02/06/24 12/17/24 Germaine Aleman, W Community Health Worker Primary Care - CC 02/18/2412/17/24 Robin Zepeda MD [address] [address] Assigned Neuroscience Provider 03/08/24 05/07/24 Lisa Zambrano MD [address] [address] Assigned Heart and Vascular Provider 05/08/24 07/07/24 Raul Hoyos MD [address] [place] [address] Assigned Neuroscience Provider 05/08/24 07/07/24 Joya Lira [facility] [address] [place] [address] Pharmacist Pharmacist 05/25/24 Joya Lira [facility] [address] [place] [address] Assigned MTM Pharmacist 06/08/24 Fabi Coates MD [address] [place] [address] 75 [place], [place] 662975 Genetics, Clinical 06/18/24 Robin Zepeda MD [address] [place] [address] [place], [place] 30[address] Assigned Neuroscience Provider 07/08/24 08/07/24 Danna Cardenas PA-C [address] [place] [address] 074815 Assigned Heart and Vascular Provider 07/08/24 12/05/24 Felicita Desai RN Lead Launch Steward 07/14/24 07/28/24 Arthur Salas [facility] [address] [address] Assigned Behavioral Health Provider 08/08/24 Randy Maradiaga DO [address] [place] [address] 592365 Assigned Neuroscience Provider 08/08/24 Tete Wang MD [address]50 [place], [place] 672154 Genetics, Clinical 10/30/24 Dahlia Joyce MD [address] [place] [address] 088495 Radiology Neuroradiology 11/17/24 [place] [address] [place] [address] [address] [place], [place] 530865 Assigned Heart and Vascular Provider 12/06/24 [place] [address] [place] [address] 740334 Assigned Pediatric Specialist Provider 01/06/25 Any Joiner MD [address] [place] [address] [phone] Assigned Pulmonology Provider 02/05/25 Bindu Bueno OD [address] [place] [address] [phone] Assigned Surgical Provider 03/08/25 Aftab Finn MD [address] 532420 Dermatology 03/17/25 Aftab Finn MD 500 [place], [place] 036265 Assigned Dermatology Provider 04/07/25 Selena Mcfadden, W Community Health Worker 05/25/2505/26 Red De Los Santos LSW Lead Launch Steward Primary Care - CC 05/26/25 Santa Menon PA-C 909 [place] [address] Physician Workforce Consultant Physical Medicine and Rehabilitation 02/25/25 Alessandra Pereira RN Specialty Launch Steward Neurological Surgery 06/02/25 documented as of this encounter
--- OUTSIDE RECORDS SUMMARY | 2025-07-07 18:23 | XMS_ITS | Encounter Summary ---
Author Organization [facility] Address [address] [place] [address] Care Team Providers Care Microsoft Architect Name Role Phone Winston Villatoro OD Unavailable [phone] Denise Woodson APRN SURGICAL INSTRUMENT REPAIR SPECIALIST Unavailable [phone] Denise Woodson APRN SURGICAL INSTRUMENT REPAIR SPECIALIST Primary Care Provider Usha Simon APRN SURGICAL INSTRUMENT REPAIR SPECIALIST Unavailable + [phone] Dangelo Salinas MD Unavailable Joya Lira RP Unavailable [phone] Joya Lira [facility] Unavailable [phone] Fabi Coates MD Unavailable [phone] [employer], [employer] RN Unavailable [phone] Randy Maradiaga DO Unavailable + Tete Wang MD Unavailable +[phone] Dahlia Joyce MD Unavailable [phone] Lisa Zambrano MD Unavailable + [phone] Tete Wang MD Unavailable [phone] Any Joiner MD Unavailable [phone] Bindu Bueno OD Unavailable [phone] Aftab Finn MD Unavailable Randy Maradiaga DO Primary Care Prov ider Aftab Finn MD Unavailable Selena Mcfadden CHW Unavailable [phone] Denise Woodson APRN SURGICAL INSTRUMENT REPAIR SPECIALIST Primary Care Provider Red De Los Santos PRINT PROJECT MANAGER Unavailable [phone] Santa Menon PA-C Unavailable [phone] Alessandra Pereira RN Unavailable Encounter Details Date Type Department Care Team (Late st Contact Info) Description 03/12/[address] 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 Please see pt's MCM with images and advise if pt should be seen sooner than 03/16 or if okay to wait since this is a recurrent issue. Lubna Betancourt RN [facility] documented in this encounter Plan of Treatment Upcoming Encounters Date Type Department Care Team (Late st Contact Info) Description 07/09/2025 11:00 AM CDT Virtual Visit [address] [phone] Bindu Bueno, OD 909 [place] [address] Rubi Johnson, OT [address] [address] 07/15/2025 2:30 PM CDT Office Visit [facility] [address] [place] [phone] Denise Woodson APRN [facility] [address] [place], [place] [phone] 07/16/2025 11:00 AM CDT Virtual Visit [address] [phone] Bindu Bueno, OD 909 [place] [address] Rubi Johnson, OT [facility] 150 [place] [address] 07/23/2025 11:00 AM CEMENT DESPATCH OPERATOR Virtual Visit [facility] 150 [place] [phone] Bindu Bueno, OD 909 [place] [address] Rubi Johnson, OT [address] [address] 08/03/2025 11:00 AM CEMENT DESPATCH OPERATOR Virtual Visit [address] [phone] Bindu Bueno, OD 9[address] [place], [place] 767[address] Rubi Johnson, OT [address] [address] 08/03/2025 4:30 PM CEMENT DESPATCH OPERATOR Virtual Visit [facility] [address] [address] Any Joiner MD [address] [place] [address] 895805 08/17/2025 12:45 PM CEMENT DESPATCH OPERATOR Virtual Visit [address] [phone] Bindu Bueno, OD [address]09 [place], [place] [phone] Rubi Johnson, OT [address] [address] 10/04/2025 10:15 AM CEMENT DESPATCH OPERATOR Virtual Visit [facility] Physical Medicine and Rehabilitation Clinic [address] [phone] Santa Menon, PANilesC [address] [place] [address] 995825 01/19/2026 11:30 AM CDT Office Visit [facility] Neurology Clinic [address] [phone] Randy Maradiaga DO [address] [place] [address] 735245 documented as of this encounter Visit Diagnoses Not on filedocumented in this encounter Additional Health Concerns Assessment Noted Time PHQ-9 Depression Total Score: 11 025 11:39 AM CDT documented as of this encounter Care Teams Microsoft Architect Relationship Specialty Start Date End Date Winston Villatoro OD [facility] [address] [facility] [address] [place] [address] PCP - Ophthalmology Ophthalmology 02/11/13 Denise Woodson APRN SURGICAL INSTRUMENT REPAIR SPECIALIST [address] [place] [address] PCP - General Family Practice 09/21/20 04/07/25 Randy Maradiaga DO [address] [place] [address] PCP - General Neurology 04/08/25 05/25/25 Denise Woodson APRN SURGICAL INSTRUMENT REPAIR SPECIALIST [address] [place] [address] PCP - General Family Practice 05/26/25 Denise Woodson APRN SURGICAL INSTRUMENT REPAIR SPECIALIST [address] [place] [address] Assigned PCP 07/17/20 Usha Simon APRN SURGICAL INSTRUMENT REPAIR SPECIALIST [address] [facility] [id number] [place], [place] 533495 Nurse Practitioner Neurological Surgery 01/24/24 Dangelo Salinas MD [address] [place], [place] [phone] Neurology 01/27/24 Joya Lira [facility] [address] [place], [place] [phone] Pharmacist Pharmacist 05/25/24 Joya Lira [facility] [address] [place] [address] Assigned MTM Pharmacist 06/08/24 Fabi Coates MD [address] [facility] 75 [place] [address] Genetics, Clinical 06/18/24 Arthur Salas [facility] [address] [place] [address] Assigned Behavioral Health Provider 08/08/24 Randy Maradiaga DO 909 [place] [address] Assigned Neuroscience Provider 08/08/24 Tete Wang MD [address] [place] [address] Genetics, Clinical 10/30/24 Dahlia Joyce MD [address] [place] [address] Radiology Neuroradiology 11/17/24 Lisa Zambrano MD [address] [place] [address] Assigned Heart and Vascular Provider 12/06/24 Tete Wang MD [address] [place] [address] Assigned Pediatric Specialist Provider 01/06/25 Any Joiner MD [address] [place] [address] 530245 Assigned Pulmonology Provider 02/05/25 Bindu Bueno, AMELIE [address] [place] [address] Assigned Surgical Provider 03/08/25 Aftab Finn MD [address] 551410 Dermatology 03/17/25 Aftab Finn MD [address] [place] [address] Assigned Dermatology Provider 04/07/25 Selena Mcfadden, W Community Health Worker 05/25/2505/26 Red De Los Santos LSW Lead Bank Compliance Officer Primary Care - CC 05/26/25 Santa Menon, PA-C [address] [place] [address] [address] Collections Officer Physical Medicine and Rehabilitation 02/25/25 Alessandra Pereira, RN Specialty Bank Compliance Officer Neurological Surgery 06/02/25 documented as of this encounter
[2025-07-07 18:43] LABS: Hematocrit* 44.5 % (33.0-51.0); Hemoglobin* 14.9 gm/dL (12.0-16.0); Immature Granulocytes Abs Auto 0.01 K/uL (0.00-0.30); Immature Granulocytes Pct Auto 0.1 %; Lymphocytes Absolute Auto 2.34 K/uL (0.90-2.90); Mean Corpuscular HGB Conc 34 gm/dL (32-36); Mean Corpuscular Hemoglobin 30 pg (26-34); Mean Corpuscular Volume 91 fL (80-100); RDW Coefficient of Variation % 12.0 % (11.5-15.5); Red Blood Count* 4.90 m/uL (4.00-5.20); White Blood Count* 7.80 K/uL (4.50-11.00)
[2025-07-07 18:56] LABS: Chloride* 98 mmol/L (96-114)
[2025-07-07 18:57] LABS: Potassium* 4.2 mmol/L (3.6-5.1); Sodium* 138 mmol/L (135-149)
[2025-07-07 18:58] LABS: Slide Review Reflex No
[2025-07-07 18:59] LABS: Blood Urea Nitrogen* 18 mg/dL (5-24); Creatinine* 0.8 mg/dL (0.5-1.5); Estimated Glomerular Filt Rate 91 ml/min
[2025-07-07 19:00] LABS: Anion Gap 10 mEq/L (7-15); Calcium* 9.7 mg/dL (8.4-10.6); Carbon Dioxide* 30 mmol/L (20-32); Glucose* 95 mg/dL (60-115)
[2025-07-07 20:41] VITALS: BP 132/68; PULSE 62; RESP 20
== END 2025-07-07 20:42 | disposition home or self-care (01) ==
PROVIDERS: Emergency Provider Emergency Medicine; PCP Family Medicine
DX: M54.2 Cervicalgia (principal)
CPT/HCPCS: 36415; 70450; 70496; 70498; 80048; 85025; 99283; 99284; 99285; Q9967